=== PATIENT | female | born 1980 | race Caucasian/White ===

== ENCOUNTER 2023-06-01 04:41 | Emergency (ER) | payer OTHER, SELFPAY ==
[2023-06-01] VITALS (12 sets, daily range): BP systolic 136–151; BP diastolic 81–90; PULSE 102–124; RESP 16–22; TEMP 36.6–37; O2SAT 95–100
--- NOTE | ~2023-06-01 | XR_ITS ---
Portable chest x-ray Comparison: None Clinical History: Seizure Findings: Lungs are clear, without focal consolidation or pleural effusion. Cardiomediastinal silho uette is unremarkable. Bones and soft tissues are unremarkable. Impression: Normal chest. Reviewed, dictated and finalized at location . Impression: Normal chest.
--- NOTE | ~2023-06-01 | CT_ITS ---
Non-contrast Head CT History: Seizure Technique: Axial non-contrast imaging of the brain was performed. Dose reduction technique was used on this scan by utilizing automated exposure control and iterative reconstruction technique. The dose -length product (DLP) was 605.33 mGy-cm. Findings: There is no evidence of intracranial hemorrhage, mass lesion, or acute infarct. There is e xtensive encephalomalacia in the right MCA distribution, with right frontotemporal craniotomy... The ventricles and subarachnoid spaces are normal in size. The calvarium appears normal. The visualize d paranasal sinuses and mastoid air cells are clear. Impression: No acute abnormality evident. Extensive right MCA distribution encephalomalacia with overlying craniotomy. Correlate for prior infa rct or other postoperative change. Reviewed, dictated and finalized at [facility]. Impression: No acute abnormality evident. Extensive right MCA distribution encephalomalacia with overlying craniotomy. Co rrelate for prior infarct or other postoperative change.
--- NOTE | 2023-06-01 04:59 | ECG_ITS ---
Measurements Intervals [place] Rate: 112 P: 36 SD: 144 QRS: -8 QRSD: 98 T: -7 QT: 327 QTc: 448 Interpretive Statements SINUS TACHYCARDIA LOW QRS VOLTAGE IN PRECORDIAL LEADS INCOMPLETE RIGHT BUNDLE BRANCH BLOCK ST-T WAVE ABNORMALITY IN ANTERIOR LEADS- CONSIDER ISCHEMIA BASELINE ARTIFACT- I, II, AVR ABNORMAL ECG NO PREVIOUS ECG AVAILABLE FOR COMPARISON Electronically Signed On 06-01-2023 6:40:17 CDT by Pablo Cuba D.O.
[2023-06-01] MEDS: SODIUM CHLORIDE 0.9% IV 1,000 ML 999 ML IV CONT (05:39)
[2023-06-01] MEDS: levETIRAcetam IV 2,000 MG in DEXTROSE 5% 100 ML 720 MG IVPB (06:09)
[2023-06-01 06:11] LABS: Basophils Absolute Auto 0.1 K/mm3 (0.0-0.1); Basophils Percent Auto 0.8 % (0.2-1.2); Eosinophils Absolute Auto 0.1 K/mm3 (0-0.3); Eosinophils Percent Auto 0.9 % (0-4.4); Hematocrit 40.6 % (37.0-47.0); Hemoglobin 13.2 g/dL (12.0-15.0); Immature Granulocyte Absolute 0.09 K/mm3 (0.00-0.031); Immature Granulocyte Percent A 0.9 % (0-0.5); Immature Platelet Fraction Pct 3.9 % (0.9-11.2); Lymphocytes Absolute Auto 2.02 K/mm3 (0.9-3.2); Lymphocytes Percent Auto 20.4 % (18.3-44.2); Mean Corpuscular HGB Conc 32.5 g/dl (32-36); Mean Corpuscular Hemoglobin 30.1 pg (26-34); Mean Corpuscular Volume 92.7 fl (80-100); Mean Platelet Volume 10.1 fl (7.4-10.4); Monocytes Absolute Auto 0.7 K/mm3 (0.1-0.6); Monocytes Percent Auto 7.4 % (2.6-8.5); Neutrophils Absolute Auto 6.9 K/mm3 (1.3-6.7); Neutrophils Percent Auto 69.6 % (45.5-73.1); Platelet Count Result 358 k/mm3 (150-375); Red Blood Count 4.38 M/mm3 (4.2-5.4); White Blood Count 9.9 K/mm3 (4.5-10.0)
[2023-06-01 06:27] LABS: Alanine Aminotransferase 21 U/L (6-35); Albumin Level 3.9 g/dL (3.5-5.1); Alkaline Phosphatase 83 U/L (38-126); Anion Gap 3 mmol/L (8-16); Aspartate Amino Transferase 25 U/L (14-36); Bilirubin,Total 0.6 mg/dL (0.2-1.3); Blood Urea Nitrogen 11 mg/dL (7-17); Calcium 9.2 mg/dL (8.4-10.2); Carbon Dioxide 30 mmol/L (22-30); Chloride 103 mmol/L (98-107); Estimated CRCL calculation 143 ml/min; Estimated Glomerular Filt Rate > 60; Glucose 93 mg/dL (65-110); Magnesium 1.9 mg/dL (1.6-2.3); Potassium 3.9 mmol/L (3.4-5.0); Sodium 136 mmol/L (137-145)
--- NOTE | 2023-06-01 06:44 | ED.GENADULT ---
HPI - General Adult General Chief complaint: Seizure Stated complaint: ALTERED LOC? SEIZURE? History of Present Illness HPI narrative: This is a 42-year-old female with a history of CVA with left-sided weakness presenting for possible seizure. The patient herself does not remember what happened. the patient's said he heard a thump from the shower when he went to check on her she was half on half off the bed. There is noted tonic clonic activity but her eyes were deviated up into the right. She was unresponsive at that time. As he went called EMS and when he came back to the room she was no longer rigid and was responding but very sleepy. Patient's mental status continued to improve in the ambulance and when she arrived at the hospital she was at her baseline. Patient denies headache, fever, chills, chest pain, difficulty breathing, abdominal pain or urinary symptoms. Patient had been on prophylactic Keppra after her stroke and had been weaned down from 500 mg b.i.d. to 500 mg once daily 3 days ago. Related Data Allergies Allergy/AdvReac Type Severity Reaction Status Date / Time latex Allergy Unknown Hives Verified 06/01/23 04:46 vancomycin Allergy Fever Verified 06/01/23 04:46 [facility] Family History Family History (Updated 11/06/13 @ 07:13 by DOCTOR UNKNOWN) Mother Family history of thyroid disease Hypertension Social History Social History Smoking status: Current every day smoker Alcohol intake: current Exam Narrative: APPEARANCE: No apparent distress. Head: atraumatic. EYES: EOMI, NOSE: Atraumatic NECK: Trachea midline RESPIRATORY: No increased rate of breathing Clear to auscultation CARDIOVASCULAR: RRR, no peripheral edema MUSCULOSKELETAl: No obvious deformities NEURO: Alert. normal function of the right arm and right leg. Flaccid paralysis of the left arm left leg. Left-sided facial droop SKIN:: Warm, dry. Normal color PSYCHIATRIC: tearful Course Vital Signs Vital signs: Vital Signs Temperature 98.6 F 06/01/23 04:40 Pulse Rate 124 H 06/01/23 04:40 Respiratory Rate 22 H 06/01/23 04:40 Blood Pressure 143/90 H 06/01/23 04:40 Pulse Oximetry 95 06/01/23 04:40 Oxygen Delivery Room Air 06/01/23 04:40 Temperature 98.6 F 03/22/24 04:40 Pulse Rate 103 H 06/01/23 07:00 Respiratory Rate 20 06/01/23 07:00 Blood Pressure 136/81 06/01/23 06:33 Pulse Oximetry 98 06/01/23 07:00 Oxygen Delivery Room Air 06/01/23 04:46 Medical Decision Making [facility] Narrative Medical decision making narrative: -Course: 42-year-old female with history of CVA presenting with new onset seizures. patient loaded with 2000 mg of Keppra. Workup negative for acute findings. Seizures likely due to reduction in Keppra. Case was discussed with the [facility] Neurologist on-call at this time the patient can follow-up with the epilepsy clinic. Family was informed of the plan and are comfortable. Given return precautions for more seizures. -DDX includes but is not limited to: New onset seizure secondary to CVA, infection, dehydration -Co-morbidities complicating care: right MCA stroke, hypertension -Social determinants of health: disabled with stroke, lives with her -Independent interpretation of studies: CBC normal. Metabolic panel unremarkable. Viral swabs negative CT head retention prior stroke but no acute findings. Chest x-ray unremarkable. UA no indicative of infection. Independent EKG interpretation: Rhythm [sinus], Rate [112], [place] -[normal], ND -[normal], QRS [narrow], QTC [normal], T waves -[negative for concerning inversions], ST Segments - [Negative for concerning elevations] Final interpretations: sinus tach nonspecific ST changes -Discussion of Management/Consultants: [facility] Transfer line : Neurology Dr. Marcus - case was discussed and as the patient has a known reason for seizure with her prior stroke and recently decreased keppra dosing it is
[2023-06-01 06:45] LABS: Influenza A QL RT-PCR Negative (Negative); Influenza B QL RT-PCR Negative (Negative); RSV RNA, RT-PCR Negative (Negative); SARS-CoV-2 RNA PCR Negative (Negative)
[2023-06-01 06:57] LABS: Appearance Urine Clear (Clear); Bilirubin Urine Negative (Negative); Blood Urine Negative (Negative); Color Urine Yellow (Yellow); Glucose Urine UA Negative (Negative); Ketones Urine Negative (Negative); Leukocyte Esterase Ur Negative LEU/UL (Negative); Nitrate Urine Negative (Negative); Protein Urine Negative (Negative); Specific Grav Ur 1.015 (1.001-1.035); Urobilinogen Urine 0.2 mg/dL (<2.0); pH Urine 6.5 (5.0-9.0)
[2023-06-01 07:02] LABS: Add Urine Microscopic? NO
[2023-06-01 07:05] LABS: Platelet Estimate Adequate (Adequate); Schistocytes None Seen
[2023-06-01 07:17] LABS: Pregnancy On Board Control Positive; Urine Pregnancy Test Negative
== END 2023-06-01 08:11 | disposition home or self-care (01) ==
PROVIDERS: Emergency Provider Emergency Medicine; PCP Student in an Organized Health Care Education/Training Program
DX: R56.9 Unspecified convulsions (principal); Z20.822 Contact with and (suspected) exposure to COVID-19; I69.954 Hemiplegia and hemiparesis following unspecified cerebrovascular disease affecting left non-dominant side; F17.200 Nicotine dependence, unspecified, uncomplicated
CPT/HCPCS: 36415; 70450; 71045; 80053; 81025; 83735; 85025; 85055; 87637; 93005; 96361; 96374; 99284; J1953; J7030

== ENCOUNTER 2024-03-10 11:59 | Outpatient (CLI) | payer OTHER, SELFPAY ==
--- NOTE | 2024-03-10 12:07 | ECG_ITS ---
Test Date: 2024-03-10 12:35:34 Measurements Intervals [place] Rate: 76 P: -26 [place]: 145 QRS: 8 QRSD: 101 T: -30 QT: 394 QTc: 444 Interpretive Statements SINUS RHYTHM POSSIBLE RIGHT VENTRICULAR CONDUCTION DELAY [RSR (QR) IN V1/V2] Poor R wave progression WARNING: DATA QUALITY MAY AFFECT INTERPRETATION No previous ECG available for comparison Electronically Signed On 03-10-2024 18:07:48 [employer] by Won Rodriges M.D.
[2024-03-10 13:02] LABS: Alanine Aminotransferase 24 U/L (6-35); Albumin Level 3.9 g/dL (3.5-5.1); Alkaline Phosphatase 73 U/L (38-126); Anion Gap 4 mmol/L (4-12); Aspartate Amino Transferase 24 U/L (14-36); Bilirubin,Total 0.5 mg/dL (0.2-1.3); Blood Urea Nitrogen 16 mg/dL (7-17); Carbon Dioxide 26 mmol/L (22-30); Chloride 105 mmol/L (98-107); Estimated Glomerular Filt Rate > 60; Glucose 133 mg/dL (65-110); Potassium 3.5 mmol/L (3.4-5.0); Sodium 135 mmol/L (137-145)
== END 2024-03-10 12:00 | disposition home or self-care (01) ==
LOC: ANHSURGERY 12:06
PROVIDERS: PCP Student in an Organized Health Care Education/Training Program; Visit Provider Obstetrics & Gynecology
DX: Z01.818 Encounter for other preprocedural examination (principal); N92.0 Excessive and frequent menstruation with regular cycle; I10 Essential (primary) hypertension
CPT/HCPCS: 36415; 80053; 86850; 86900; 86901; 93005

== ENCOUNTER 2024-03-14 16:36 | Inpatient (IN) | payer OTHER, SELFPAY ==
[2024-03-07 08:33] VITALS: BMI 40.4
--- NOTE | 2024-03-07 08:43 | PC.NURSE ---
Report to the Outpatient Waiting Room, entrance under the green pavilion located off [facility], at time _0600_ on date _[id number]_. Planned Procedure Time: _0730_.? Time changes happen often and if your time is changed the preop area will call you the afternoon before. - You and your visitor will be asked to self-screen and do not enter if you have any COVID symptoms. Please call surgeon if you need to reschedule. - A mask is optional within the hospital at this time. Patients may have clear liquids (water, carbonated beverages, clear teas, apple juice) until 3 hours prior to surgery with a maximum of 20 ounces. - No food from midnight until time of surgery and no smoking. This includes no chewing gum, candy or mints. Take only the following medications with a SIP of water on the morning of surgery: ___Keppra, Buspirone, Verapamil, Baclofen, Hydrocodone, Duloxetine, and Metoprolol DO NOT STOP ANY OF YOUR OTHER PRESCRIPTION MEDICATIONS PRIOR TO SURGERY EXCEPT THE FOLLOWING Medications to discontinue per physician ___Vitamin D3 Date to take last eoby____[id number]____ Continue aspirin as instructed by 's office. Please no make-up, nail solomon islander, hairspray, perfume, deodorant, or body powder the day of surgery.? No jewelry (including any body piercings) or valuables the day of surgery, leave them at home.? Please take a shower or bath the night before, or the morning of, surgery with an antibacterial soap.? Wear comfortable, loose fitting clothing.? - Jewelry must be removed prior to entering the operating room.? Rings and piercings that are not removed may be cut off. - The hospital will not accept responsibility for valuables.? - Please leave all valuables, including medications, at home the day of surgery. If you are going home after surgery, a licensed driver/merchandiser must drive you home.? - NO public transportation without another adult if you receive anesthesia. - We recommend that an adult stay with you for 24 hours following discharge. - We also recommend that you do not drive, make important decision, drink alcoholic beverages, or take any drugs that were not prescribed by your health care provider for at least 24 hours after your discharge time. Follow any additional instructions given to you from your surgeon. Telephone instructions given to __Jen__and asked if any additional questions and then verbalized understanding. Patient advised to call surgeon office or pre surgery nurse liaison [phone] if any additional questions.
[2024-03-13] VITALS (13 sets, daily range): BP systolic 89–126; BP diastolic 48–78; PULSE 77–112; RESP 12–19; TEMP 36.2–36.8; O2SAT 92–100
[2024-03-13] MEDS: LACTATED RINGERS 1,000 ML 30 ML IV CONT ×3 (07:10→11:50)
--- NOTE | 2024-03-13 07:16 | P.HP_ITS ---
H&P: HPI History of Present Illness Date/Time: 03/13/24 07:16 Chief Complaint: Heavy vaginal bleeding Narrative: this patient is a 43-year-old female with history of stroke who has severe menorrhagia. We have agreed to perform robotic hysterectomy with bilateral salpingo-oophorectomy. The patient understands the details of the procedure. The procedure has been explained in detail. She understands the risks. She understands that injuries may occur that result in hospitalization, more surgery, and severe illness. She understands risk of hemorrhage and infection. She denies any chest pain or shortness of breath. She denies any nausea, vomiting, fever, chills. Review of Systems Review of Systems: All systems reviewed & are unremarkable except as noted in HPI and below Constitutional: Constitutional: Denies chills, Denies fatigue, Denies fever(s) and Denies weakness Eyes: Eyes: Denies blurry vision, Denies change in vision, Denies loss of peripheral vision, Denies loss of vision, Denies other visual disturbances and Denies eye pain ENT: Denies vertigo, Denies dizziness, Denies hearing loss, Denies mouth pain, Denies nasal obstruction, Denies neck mass and Denies neck pain Cardiovascular: Cardiovascular: Denies chest pain, Denies diaphoresis, Denies syncope, Denies leg edema and Denies dyspnea Respiratory: Respiratory: Denies chest congestion, Denies cough, Denies hemoptysis, Denies dyspnea and Denies wheezing Gastrointestinal: Gastrointestinal: Denies abdominal pain, Denies constipation, Denies diarrhea, Denies nausea and Denies vomiting Genitourinary: Genitourinary: Denies hematuria, Denies change in libido, Denies nocturia, Denies genital lesions, Denies flank pain and Denies urinary urgency Musculoskeletal: Musculoskeletal: Denies abnormal gait, Denies back pain, Denies myalgias, Denies arthralgias, Denies joint swelling, Denies muscle weakness and Denies neck pain Integumentary/Breasts: Skin/Breast: Denies swelling, Denies breast pain, Denies breast mass, Denies dry skin, Denies nipple discharge, Denies unusual bruising and Denies jaundice Neurologic: Denies Neuro-related abnormal movements, Denies Abnormal speech present, Denies abnormal gait, Denies behavioral changes, Denies confusion, Denies vertigo, Denies dizziness, Denies syncope, Denies loss of vision, Denies memory loss, Denies convulsions and Denies weakness Psychiatric: Psychiatric: Denies abnormal sleep pattern, Denies behavioral changes, Denies change in libido, Denies confusion, Denies depression, Denies anhedonia and Denies memory loss Endocrine: Endocrine: Reports no additional endocrine complaints, Denies change in libido and Denies fatigue Hematologic/Lymphatic: Hematologic/Lymphatic: Reports no additional hematologic/lymphatic complaints Allergic/Immunologic: Allergic/Immunologic: Reports no additional allergic/immunologic complaints and Denies wheezing [facility] Family History Family History (Updated 11/06/13 @ 07:13 by DOCTOR UNKNOWN) Mother Family history of thyroid disease Hypertension Social History Social History Years smoked: 5 Smoking status: Former smoker Tobacco type: cigarettes Smoking end date: 03/07/16 Alcohol intake: current Living arrangements: with family Spiritual care concerns: No Meds Home Medications and Allergies Home Medications ?Medication ?Instructions ?Recorded ?Confirmed ?Type aspirin 81 mg tablet,delayed 81 mg PO DAILY 03/07/24 03/07/24 History release (Adult Aspirin Regimen) baclofen 10 mg tablet 10 mg PO DAILY 03/07/24 03/07/24 History buspirone 5 mg tablet 5 mg PO BID 03/07/24 03/07/24 History cetirizine 10 mg tablet (24Hour 10 mg PO DAILY 03/07/24 03/07/24 History Allergy) cholecalciferol (vitamin D3) 50 2,000 unit PO DAILY 03/07/24 03/07/24 History mcg (2,000 unit) capsule (Vitamin D3) cyclobenzaprine 5 mg tablet 5 mg PO Q8H 03/07/24 03/07/24 History duloxetine 60 mg capsule,delayed 60 mg PO DAILY 03/07/24 03/07/24 History release hydrocodone 10 mg-acetaminophen 1 tablet PO Q6H 03/07/24 03/07/24 History 325 mg tablet levetiracetam 1,000 mg tablet 1,500 mg PO Q12H 03/07/24 03/07/24 History metoprolol tartrate 25 mg tablet 25 mg PO DAILY 03/07/24 03/07/24 History pantoprazole 40 mg tablet,delayed 40 mg PO DAILY 03/07/24 03/07/24 History release verapamil 180 mg 24 hr 180 mg PO DAILY 03/07/24 03/07/24 History capsule,extended release Allergies Allergy/AdvReac Type Severity Reaction Status Date / Time latex Allergy Unknown Hives Verified 03/07/24 08:26 vancomycin Allergy Fever Verified 03/07/24 08:26 Exam Const: General: cooperative, healthy appearing, comfortable and no acute distress Orientation/consciousness: oriented to person, oriented to place and oriented to time HENMT: Head: normal to inspection Ears: external ears normal Face/Nose/Sinus: Normal external nose present and normal facial exam Face and sinus: normal facial exam Eyes: General: appearance normal, both eyes and all related structures Neck: Neck: normal visual inspection, trachea midline and supple Resp: Auscultation: clear to auscultation bilaterally, no crackles, no rales, no rhonchi and no wheezes Cardio: Rate: regular rate Rhythm: regular rhythm Heart sounds: no click, no murmurs and no rubs GI: GI Palp: No abdominal tenderness, No Soft to palpation, No Tenderness to palpation present (GI) and No Palpable mass present Auscultation: normal bowel sounds Skin: General skin exam: normal color and no rashes or lesions noted Neuro: General: oriented to person, oriented to place and oriented to time Extrem: General: normal to inspection, no joint enlargement, no clubbing, cyanosis or edema, no pedal edema and no calf tenderness Psych: Appearance: grossly normal Mental Status: mental status grossly normal Speech and movement: Normal speech and movement present Assessment and Plan Assessment and plan (1) Menorrhagia: Code(s): N92.0 - Excessive and frequent menstruation with regular cycle Status: Acute Assessment and Plan: this patient is a 43-year-old female with history of stroke who has severe menorrhagia. We have agreed to perform robotic hysterectomy with bilateral salpingo-oophorectomy. she understands risks, benefits, and alternatives. She has completed informed consent process is ready to proceed. (2) Stroke: Code(s): I63.9 - Cerebral infarction, unspecified Status: Acute
[2024-03-13] MEDS: KETOROLAC 15 MG/ML VIAL (*BKC) IV PUSH (07:18)
--- NOTE | 2024-03-13 07:18 | WPDHPUPDATE1 ---
History and Physical Update Update Date/Time: 03/13/24 07:18 History and Physical has been reviewed, including an updated exam of the patient. There are NO changes in the patient's condition. Risks, benefits, and alternatives have been discussed and questions answered. Patient agrees to proceed with procedure.
--- NOTE | 2024-03-13 07:19 | WPDANESEPPF ---
Anes - Initial Pre Proc Eval Procedure: Operation Date: 03/13/24 07:30 Proposed Procedures p Robotic Assisted Hysterectomy with Bilateral Salpingectomy - Leno Moran MD Date/Time: 03/13/24 07:19 Surgeon: Leno Moran MD Pre Op Diagnosis: menorrhagia Patient Data Age: 43 Gender: F Height: 1.63 m Weight: 106.8 kg Allergies Allergy/AdvReac Type Severity Reaction Status Date / Time latex Allergy Unknown Hives Verified 03/07/24 08:26 vancomycin Allergy Fever Verified 03/07/24 08:26 Home Medications ?Medication ?Instructions ?Recorded ?Confirmed ?Type aspirin 81 mg tablet,delayed 81 mg PO DAILY 03/07/24 03/07/24 History release (Adult Aspirin Regimen) baclofen 10 mg tablet 10 mg PO DAILY 03/07/24 03/07/24 History buspirone 5 mg tablet 5 mg PO BID 03/07/24 03/07/24 History cetirizine 10 mg tablet (24Hour 10 mg PO DAILY 03/07/24 03/07/24 History Allergy) cholecalciferol (vitamin D3) 50 2,000 unit PO DAILY 03/07/24 03/07/24 History mcg (2,000 unit) capsule (Vitamin D3) cyclobenzaprine 5 mg tablet 5 mg PO Q8H 03/07/24 03/07/24 History duloxetine 60 mg capsule,delayed 60 mg PO DAILY 03/07/24 03/07/24 History release hydrocodone 10 mg-acetaminophen 1 tablet PO Q6H 03/07/24 03/07/24 History 325 mg tablet levetiracetam 1,000 mg tablet 1,500 mg PO Q12H 03/07/24 03/07/24 History metoprolol tartrate 25 mg tablet 25 mg PO DAILY 03/07/24 03/07/24 History pantoprazole 40 mg tablet,delayed 40 mg PO DAILY 03/07/24 03/07/24 History release verapamil 180 mg 24 hr 180 mg PO DAILY 03/07/24 03/07/24 History capsule,extended release Patient hx anesthesia problems: none Family hx anesthesia problems: none Results Review: All pre-operative results and documents have been reviewed as part of the pre-operative evaluation. [facility] Family History Family History Mother Family history of thyroid disease Hypertension Social History Social History Years smoked: 5 Smoking status: Former smoker Tobacco type: cigarettes Smoking end date: 03/07/16 Alcohol intake: current Living arrangements: with family Spiritual care concerns: No Anes - Eval Final PreProcedure Day of Procedure 03/13/24 07:19 Patient weight: normal Heart: regular rate and rhythm Lungs: clear to auscultation Airway: Mallampati scale Neurological: alert and oriented Last oral intake: >/= 8 hours ASA classification: III Emergent: no Anesthetic plan: proceed Anesthesia type and monitoring: general ETT and standard monitoring Results Review: All pre-operative results and documents have been reviewed as part of the pre-operative evaluation. CVA 2022 unclear etiology. Pt w residual L hemiparesis. Seizure meds taken this am. Informed Consent: The patient's anesthetic plan and its attendant risks and benefits were discussed with the patient/family/POA. Questions were solicited and answers provided to the satisfaction of the patient/family/POA.
[2024-03-13] MEDS: ceFAZolin 2 GM/D5W 50 ML 2 GM/50 ML BAG IVPB (07:34)
--- NOTE | 2024-03-13 09:12 | P.CONGS_ITS ---
Assessment and Plan Assessment and plan (1) Accidental injury of intestine during surgical procedure: Code(s): K91.81 - Other intraoperative complications of digestive system Status: Acute Assessment and Plan: Potential bowel injury during initial trocar placement prior to robotic laparoscopic hysterectomy with bilateral salpingo-oophorectomy. Will proceed with diagnostic laparoscopy. Please see operative note. (2) Menorrhagia: Code(s): N92.0 - Excessive and frequent menstruation with regular cycle Status: Chronic (3) Stroke: Code(s): I63.9 - Cerebral infarction, unspecified Status: Chronic History of Present Illness Consult details Consult date: 03/13/24 Reason for consult: other (Possible bowel injury) Requesting physician: Leno Moran MD Narrative: Patient is a 43-year-old woman with menorrhagia and scheduled for a robotic total abdominal hysterectomy with bilateral salpingo-oophorectomy. She has a history of a right hemispheric stroke in 2022 that has residual mild left hemiparesis. She takes medication to avoid seizures. She was asleep on the operating table when I was called to the room. The operating swimming pool attendant noted that in the left upper quadrant, he was using a 5 mm applied Medical optical trocar and had concern that on placement of this initial trocar he had injured the intestine directly under the trocar site. Patient was in a flat position at the time. He had not been able to find the area of the injury since then. There had been some anterior abdominal wall omental adhesions that he had taken down. I was called to evaluate the patient intraoperatively for possible bowel injury. Review of Systems Review of Systems: ROS unobtainable: Yes unobtainable due to endotracheal tube PMFSH Family History Family History Mother Family history of thyroid disease Hypertension Social History Social History Years smoked: 5 Smoking status: Former smoker Tobacco type: cigarettes Smoking end date: 03/07/16 Alcohol intake: current Living arrangements: with family Spiritual care concerns: No Meds Home Medications and Allergies Home Medications ?Medication ?Instructions ?Recorded ?Confirmed ?Type aspirin 81 mg tablet,delayed 81 mg PO DAILY 03/07/24 03/13/24 History release (Adult Aspirin Regimen) baclofen 10 mg tablet 10 mg PO DAILY 03/07/24 03/13/24 History buspirone 5 mg tablet 5 mg PO BID 03/07/24 03/13/24 History cetirizine 10 mg tablet (24Hour 10 mg PO DAILY 03/07/24 03/13/24 History Allergy) cholecalciferol (vitamin D3) 50 2,000 unit PO DAILY 03/07/24 03/13/24 History mcg (2,000 unit) capsule (Vitamin D3) cyclobenzaprine 5 mg tablet 5 mg PO Q8H 03/07/24 03/13/24 History duloxetine 60 mg capsule,delayed 60 mg PO DAILY 03/07/24 03/13/24 History release hydrocodone 10 mg-acetaminophen 1 tablet PO Q6H 03/07/24 03/13/24 History 325 mg tablet levetiracetam 1,000 mg tablet 1,500 mg PO Q12H 03/07/24 03/13/24 History metoprolol tartrate 25 mg tablet 25 mg PO DAILY 03/07/24 03/13/24 History pantoprazole 40 mg tablet,delayed 40 mg PO DAILY 03/07/24 03/13/24 History release verapamil 180 mg 24 hr 180 mg PO DAILY 03/07/24 03/13/24 History capsule,extended release Allergies Allergy/AdvReac Type Severity Reaction Status Date / Time latex Allergy Unknown Hives Verified 03/13/24 07:43 vancomycin Allergy Fever Verified 03/13/24 07:43 Vital Signs Vital Signs - 24 hr 03/13/24 06:10 Temperature 36.2 C L Pulse Rate 77 Respiratory Rate 18 Blood Pressure 119/53 L Pulse Oximetry 97 Oxygen Delivery Room Air Exam Narrative: No exam able to be performed other than that shown in the operative report. Results Labs Labs: All other labs normal.
--- NOTE | 2024-03-13 09:18 | P.OP_ITS ---
Procedure Note - Detailed Date of Procedure 03/13/24 Pre-op Diagnosis Laparoscopic bowel injury Post-op Diagnosis Other (No bowel injury found) Procedure Performed Diagnostic laparoscopy Surgeon Joni Anderson MD Technology Administrator Manuel MANUEL Anesthesia General Indications During initial trocar placement in the left upper abdomen, an optical trocar placement was worrisome for bowel injury. I was called to see the patient to evaluate for this and if found, repair. Findings There was a superficial small bowel mesenteric injury but I could not find any evidence of a small bowel perforation. Description of Procedure Patient was asleep on the operating table. Three robotic trocars were in place 1 in the left upper abdomen, 1 in the mid abdomen and 1 in the right upper abdomen, pretty much all at the same level. Patient was initially in steep Trendelenburg. There was redundant omentum covering much of the abdominal viscera. Seeing no obvious bowel injury in this position, I then had the patient returned to the flat supine position she had been in when the trocar was placed. In this position the omentum completely covered all the small bowel seeing only a small area of descending colon but otherwise only omentum. I began laparoscopic evaluation using bowel grasping atraumatic forceps. I looked initially directly under the trocar site and found a few loops of bowel but no sign of injury to bowel or other surface. Patient was then placed in some Trendelenburg. An additional 5 mm port was placed in the left upper quadrant. The camera was moved to the supraumbilical robotic trocar site. I then used the new port and the left-sided robotic trocar to do a more thorough dissection. I was able to move the omentum more cephalad and then was able to look at at least 10 ft of small intestine on the left side of the abdomen. I found an area of superficial mesenteric injury which was not bleeding. I examined the bowel very closely in this area. I examined all the bowel in this general area as thoroughly as I could and reviewed it multiple times. No evidence of bowel injury was found. I did not find any bleeding. I discussed this with Dr. Moran who was present throughout the procedure. Despite thoroughly looking at the small bowel in the area, no injury was found. The only possibility to ensure there was no injury would be to open the patient. I recommended that he go ahead and proceed with the hysterectomy and oophorectomy. If any evidence of enteric content or other suggestion of a bowel injury was noted, please call me back. Dr. Moran then resumed control of the operation. Estimated Blood Loss 0 Pathology None sent Complications None Condition Stable Disposition No change [facility] Billing Surgery - Charge Forward: Surgery Billing (Diagnostic laparoscopy)
--- NOTE | 2024-03-13 10:29 | P.OP_ITS ---
Procedure Note - Detailed Date of Procedure 03/13/24 Pre-op Diagnosis Small intestinal injury Post-op Diagnosis Same Procedure Performed Robotic laparoscopic repair of enterotomy Surgeon Joni Anderson MD Racing Secretary And Handicapper Manuel MANUEL Anesthesia General Indications I had just completed a diagnostic laparoscopy looking for small bowel injury from initial trocar placement in this patient. While I was finishing the dictation, Dr. Moran had docked and started using the robot. He found a small bowel injury adjacent to the mesentery. I was called back to the room and agreed that this was a definite full-thickness injury, requiring repair. Findings Enterotomy small intestine Description of Procedure I went to the robotic console. I then used blunt and sharp dissection with some bipolar cautery to free the mesentery in the area of the enterotomy so that the opening was fully exposed with normal appearing small intestine available around the enterotomy. Some enteric content spilled during the manipulation and this was suctioned away by the 1st state tested nursing assistant. Once the enterotomy was exposed adequately, interrupted full-thickness 4-0 chromic suture were use to provide the initial closure. This was an imbricating stitch with buried knots. I then used 4-0 silk suture and in Lembert interrupted fashion with 0 muscular bites closed the 2nd layer over the enterotomy. Suture needles were then removed. The area of repair was exposed. Irrigation and suctioning of the area was carried out. All looked good with no evidence of bleeding or leakage. The small intestine appeared healthy and viable. Dr. Moran than resumed the primary surgery at the robotic console. Estimated Blood Loss 0 Drains No Packing No Pathology None sent Complications None Condition Stable Disposition No change [facility] Billing Surgery - Charge Forward: Surgery Billing (Robotic laparoscopic 2 layer closure of enterotomy)
--- NOTE | 2024-03-13 10:43 | P.OP_ITS ---
Procedure Note - Detailed Date of Procedure 03/13/24 Pre-op Diagnosis menorrhagia Post-op Diagnosis Same Procedure Performed Robot assisted Total hysterectomy with bilateral salpingectomy. Left oophorectomy Repair of incidental enterotomy was performed by Dr. Anderson Surgeon Leno Moran MD Anesthesia General Indications heavy vaginal bleeding, pelvic pain Findings normal-appearing uterus, ovaries, and left tube, right tube was partially resected. Some scarring over the posterior cul-de-sac peritoneum. Description of Procedure This patient was taken to the operating room. She was prepped and draped in the dorsal lithotomy position after induction of general anesthesia. The uterine manipulator and Madhuri cup were placed. This was done with a speculum and tenaculum. The speculum was placed. The cervix was grasped with a tenaculum. The stay sutures were placed at 3 and 9:00 a.m.. The stay sutures of 0 Vicryl were tied to the appropriately Size scope after it was slipped around the cervix.. The tip of the CHLOÉ manipulator was placed in the intrauterine cavity. The cup was slid into place around the cervix and into the fornices. It was locked into place. The sutures were then wrapped around the handle and tied under tension. A 8 mm skin incision was made in the left upper quadrant the abdomen. a 5 mm Visiport trocar was inserted into abdominal cavity and pneumoperitoneum was a chieved. A 8 mm supraumbilical incision was made and a 8 mm trocar was inserted into the intrauterine cavity under direct visualization of the scope. an 8 mm incision was made in the right upper quadrant of the abdomen and an 8 mm robotic trocar was placed the inter uterine cavity under direct visualization the scope. An 11 mm trocar was inserted in the right upper quadrant of the abdomen rectal is a cystoscope after an incision was made there as well. The robot was docked. Electronic Orientation of the robot was performed. Bilateral ureteral lysis was performed. This was done from the pelvic brim down to the uterine artery. This was done with careful dissection using sharp and blunt dissection. The right fallopian tube were removed. The mesosalpinx around the fallopian tube were cauterized transected with LigaSure cautery. This was done from the ovary to the uterine cornua. The left tube and ovary were removed. The infundibulopelvic ligament was cauterized. The para ovarian tissue was cauterized transected. The mesosalpinx between the ovary and around the cone was cauterized transected in stepwise fashion to the area of the left uterine cornua. In a stepwise fashion along the lateral aspects of the uterus the round ligament and broad ligaments were cauterized transected down to the level of the uterine arteries. A bladder flap was created in the bladder was mo rick distally to the end of the cervix and over the Madhuri cup. The bilateral uterine arteries were cauterized and transected. Colpotomy was then performed. In a circumferential fashion the vagina was transected using unipolar cautery. The incision was made down on the Madhuri cup. The uterus and cervix were taken out through the vagina. A pneumo occluder was placed in the vagina. The vaginal cuff was closed with a 0 V lock suture in a running fashion. The pelvis was irrigated with copious amounts antibiotic irrigation. The ureters were again examined and found to be intact and flowing freely under the uterine arteries into the bladder. The bladder was intact. It was examined directly. While placing the initial trocar in the left upper quadrant, a perforation of the bowel occurred. It was a small perforation of about 0.5 mm. General surgery, Dr. Anderson repaired the defect. See his operative notes for details. The abdomen was irrigated with antibiotic irrigation. Cystoscopy was performed after administration of methylene blue. The cystoscope was inserted. Bladder was distended with fluid. The ureteric meatus was observed bilaterally. Blue fluid was seen to egress bilaterally. The bladder was drained and the cystoscope was withdrawn. The vagina was irrigated with Betadine solution after removal of the Pneumo occluder. the trocars were removed after the robot was undocked. The skin was closed with subacute or Dermabond. The patient was taken to recovery room. She was stable condition. Sponge lap and needle counts were correct x2. Estimated Blood Loss 75 Urine Output 800 Drains Yes Packing No Pathology Yes Complications Other complications (Incidental enterotomy) Condition Stable Disposition Floor
--- NOTE | 2024-03-13 11:32 | SUR.PHASEI ---
patient baseline skin color is very fair. Spoke with RN August to confirm patients skin color in preop
[2024-03-13] MEDS: SIMETHICONE 80 MG TAB.CHEW PO ×2 (13:37→17:03)
[2024-03-13] MEDS: HYDROcodone/acetaminophen (*CRX) 10-325 MG TABLET 1 TAB PO ×2 (13:37→19:21)
[2024-03-13] MEDS: LORATADINE 10 MG TABLET PO (13:38)
[2024-03-13] MEDS: DEXTROSE 5%/0.45% SOD CHL 1,000 ML 125 ML IV CONT ×2 (13:38→23:05)
[2024-03-13] MEDS: CYCLOBENZAPRINE HCL 5 MG TABLET PO ×2 (13:38→22:35)
[2024-03-13] MEDS: KETOROLAC 30 MG/ML VIAL (*BKC) IV PUSH ×2 (13:38→19:21)
[2024-03-13] MEDS: ACETAMINOPHEN 500 MG TABLET 1000 MG PO ×2 (13:38→19:21)
--- NOTE | 2024-03-13 15:37 | ADMGEN ---
This patient, Consuelo Darby, was admitted to OB 2nd Floor Room 289-00. Patient/family oriented to hospital policies and general routines including ID bracelet, bed and alarms, visiting hours, pain management, procedures, bathroom and other care routines, personal items, smoking policy, room service/diet, and visiting hours. Information on how to activate the Rapid Response Team has been discussed. Patient/Family are encouraged to report perceived risks to care and to ask questions if they do not understand what they are told or what they should do.
[2024-03-13] MEDS: oxyCODONE HCL (*CRX) 5 MG TAB IR 10 MG PO (17:02)
[2024-03-13] MEDS: busPIRone HCL 5 MG TABLET PO (17:03)
[2024-03-13] MEDS: DOCUSATE SODIUM 100 MG CAPSULE PO (17:03)
[2024-03-13] MEDS: PIPERACILLN/TAZ 3.375GM/NS50ML 3.375 GM/50 ML BAG IVPB ×2 (17:07→23:03)
[2024-03-13] MEDS: metroNIDAZOLE 500 MG/ISO 100ML 500 MG/100 ML BAG 100 MG IVPB (18:47)
[2024-03-13] MEDS: levETIRAcetam 500 MG TABLET 1500 MG PO (20:57)
[2024-03-13] MEDS: oxyCODONE HCL (*CRX) 5 MG TAB IR PO (23:02)
[2024-03-14] VITALS (12 sets, daily range): BP systolic 81–144; BP diastolic 47–88; PULSE 81–130; RESP 15–18; TEMP 36.3–37.7; O2SAT 90–98
--- NOTE | ~2024-03-14 | CT_ITS ---
CT of the Abdomen and Pelvis: Indication: Abdominal pain Technique: 2.5 mm axial scans were obtained through the abdomen and pelvis following intravenous adm inistration of 100 cc of Omnipaque 350. Dose reduction technique was used on this scan by utilizing a utomated exposure control and iterative reconstruction technique. The dose-length product (DLP) was 1 817.12 mGy-cm. Findings: Scans through the lung bases demonstrate bibasilar atelectatic changes. There is diffuse hepatic steatosis. Cholecystectomy clips are present. The spleen, pancreas, adrenals and kidneys are within normal limits. No evidence of aortic aneurysm. No lymphadenopathy. There is mild wall thickening and distention predominantly involving the proximal to mid small bowel loops. Small amount of abdominopelvic ascites present, with mesenteric haziness. Small amounts of pne umoperitoneum are present. There is also a small amount of soft tissue gas in the anterior subcutaneo us soft tissues left anterior abdomen. Small umbilical hernia contains fat with associated pneumoperi toneum evident. No javier bowel obstruction evident. No abscess. Images through the pelvis were performed. Small amount of air present in the urinary bladder. No pelv ic mass evident. Status post hysterectomy. Impression: Findings suggestive of nonspecific small bowel enteritis. There is associated small amount of pneumop eritoneum, suspicious for bowel perforation, unless there is iatrogenic explanation for pneumoperiton eum. Small amount of abdominopelvic ascites. No mature/drainable abscess. Diffuse hepatic steatosis. Small amount of air in urinary bladder, presumably iatrogenic. Correlate clinically. Reviewed, dictated and finalized at location . [facility] Impression: Findings suggestive of nonspecific small bowel enteritis. There is associated s mall amount of pneumoperitoneum, suspicious for bowel perforation, unless there is iatrogenic explanation for pneumoperitoneum. Small amount of abdominopelvic ascites. No mature/drainable abscess. Diffuse hepatic steatosis. Small amount of air in urinary bladder, presumably iatrogenic. Correlate clinic ally.
[2024-03-14] MEDS: KETOROLAC 30 MG/ML VIAL (*BKC) IV PUSH (01:42)
[2024-03-14] MEDS: ACETAMINOPHEN 500 MG TABLET 1000 MG PO ×2 (01:42→12:43)
[2024-03-14] MEDS: HYDROcodone/acetaminophen (*CRX) 10-325 MG TABLET 1 TAB PO ×3 (02:00→17:18)
[2024-03-14] MEDS: oxyCODONE HCL (*CRX) 5 MG TAB IR PO (02:27)
--- NOTE | 2024-03-14 03:11 | PC.NURSE ---
0245- Pt states that she feels that her FC needs to be flushed, that she needs to urinate. FC draining to gravity, however, this RN did irrigate with sterile water and 100mls sterile water. Repositioned pt in bed onto right side. PT states she noticed relief after, states pain is cramping on left side of lower abdomen. This RN did educate pt about surgical pain. This RN talked with pt at bedside for approx 20 minutes, reassessing urine drainage from FC, clear, yellow urine noted. 800cc's noted in catheter bag which is hanging to gravity from bed frame. Stat locks on left and right thighs to secure FC.
[2024-03-14] MEDS: HYDROmorphone HCL INJ (*CRX) 1 MG/ML SYR IV PUSH ×2 (04:50→06:08)
[2024-03-14 05:24] LABS: Estimated CRCL calculation 141 ml/min; Estimated Glomerular Filt Rate > 60
[2024-03-14] MEDS: CYCLOBENZAPRINE HCL 5 MG TABLET PO ×3 (06:38→20:22)
[2024-03-14] MEDS: PIPERACILLN/TAZ 3.375GM/NS50ML 3.375 GM/50 ML BAG IVPB ×3 (06:38→17:19)
--- NOTE | 2024-03-14 06:53 | PC.NURSE ---
Dr. Moran informed Temp 99.1 and pulse 130's. BS are hyperactive. Requested to draw CBC w diff. OK to draw.
--- NOTE | 2024-03-14 07:06 | PC.NURSE ---
0230- Pt states that she is having increased pain in LLQ of abdomen, feels like it did in rehab when my catheter was clotted. This RN flushed FC with 100mls of sterile water without difficulty, FC draining clear yellow urine into drain bag. Pt stated, I want to have it removed now, I think that it is the problem. This RN asked pt how she voids at home and she stated that her assists her to bathroom and that she does not have a FC at home. This RN removed FC without difficulty.
--- NOTE | 2024-03-14 07:10 | PC.NURSE ---
0430- Pt c/o sever 10/10 pain in abdomen, worse than my craniotomy pain. This RN palpated abdomen which was rigid, pt could not tolerate palpation. This RN could not oscultate any bowel sounds at current time. Pt repositioned with assistance of 3. This rn then called Dr. Moran- order given for Dilaudid 1mg now and CT of abdomen/pelvis stat. Order placed by this RN, dilaudid given by this RN. 0450- Pt transported to CT via bed with assist of two.
--- NOTE | 2024-03-14 07:14 | PC.NURSE ---
0530- Pt back from CT, still c/o 12/19 pain in abdomen, this RN spoke with Dr. Moran once more, order given for Dilaudid 1mg IV push now. This RN also reported CT scan findings to Dr. Moran.
--- NOTE | 2024-03-14 07:16 | PC.NURSE ---
0555- Reported off to day shift nurse Barbara.
--- NOTE | 2024-03-14 07:30 | PC.NURSE ---
Dr. Moran in to see and assess pt. Discussed increase in HR from 110 to 130's. Pt still rating pain a 9 out of 10 after the Dilaudid. Pt unable to take deep breaths due to the pain. Had pt try to use incentive spirometer and it barely moves. Dr. Moran is having Dr. Anderson come see pt this am. To keep pt NPO except sips with essential meds. Reviewed meds with Dr. Moran and he gave list of ones he wanted given with sip of water.
[2024-03-14 07:39] LABS: Basophils Percent Auto 0.4 % (0.2-1.2); Eosinophils Absolute Auto 0.2 K/mm3 (0-0.3); Eosinophils Percent Auto 3.1 % (0-4.4); Hematocrit 42.8 % (37.0-47.0); Hemoglobin 14.2 g/dL (12.0-15.0); Immature Granulocyte Absolute 0.02 K/mm3 (0.00-0.031); Immature Granulocyte Percent A 0.3 % (0-0.5); Lymphocytes Absolute Auto 1.14 K/mm3 (0.9-3.2); Mean Corpuscular HGB Conc 33.2 g/dl (32-36); Mean Corpuscular Volume 93.4 fl (80-100); Mean Platelet Volume 10.1 fl (7.4-10.4); Monocytes Absolute Auto 0.3 K/mm3 (0.1-0.6); Monocytes Percent Auto 4.3 % (2.6-8.5); Neutrophils Percent Auto 74.9 % (45.5-73.1); Platelet Count Result 269 k/mm3 (150-375); Red Blood Count 4.58 M/mm3 (4.2-5.4); Red Cell Distribution Width 14.1 % (11.5-14.5); White Blood Count 6.7 K/mm3 (4.5-10.0)
[2024-03-14] MEDS: metroNIDAZOLE 500 MG/ISO 100ML 500 MG/100 ML BAG 100 MG IVPB ×2 (07:48→17:52)
--- NOTE | 2024-03-14 08:01 | PC.NURSE ---
Dr. Moran still on unit and informed of CBC results.
[2024-03-14] MEDS: levETIRAcetam 500 MG TABLET 1500 MG PO ×2 (08:04→20:22)
[2024-03-14] MEDS: METOPROLOL TARTRATE 25 MG TABLET PO (08:04)
[2024-03-14] MEDS: DULoxetine HCL 60 MG CAPSULE.DR PO (08:04)
[2024-03-14] MEDS: VERAPAMIL HCL 180 MG TABLET ER PO ×2 (08:05→08:10)
[2024-03-14] MEDS: busPIRone HCL 5 MG TABLET PO ×2 (08:05→17:19)
--- NOTE | 2024-03-14 08:10 | PM.GYNPNOP ---
STAINED GLASS GLAZIER - A/P Assessment and plan (1) Postoperative abdominal pain: Code(s): R10.9 - Unspecified abdominal pain; G89.18 - Other acute postprocedural pain Status: Acute Assessment and Plan: postoperative day 1 from robotic assisted hysterectomy with bilateral salpingectomy left oophorectomy. Patient had increasing abdominal pain early this morning. CT the abdomen was obtained. Outside agency read the CT as possible bowel perforation. A bowel perforation was addressed intraoperatively. Other findings on the CT scan are consistent with the operation and the irrigation used. Tachycardia is present. She has a normal hemoglobin, normal white count. Increasing blood pressure. Likely pain response. Related above information to General surgery. General surgery to see patient shortly. Postoperative Procedures: Procedures Operation Date: 03/13/24 07:30 Actual Procedure Side Surgeon p Robotic Assisted Hysterectomy with Bilateral Salpingectomy, Left Oophorectomy Bilateral Leno Moran MD s Diagnostic Laparoscopy, Robotic Assisted Laparoscopic Repair of Bowel Injury Not Applicable Joni Anderson MD Postoperative day: 1 Postoperative status: doing well Postoperative plan: see orders Time Spent With Patient Time: Total time spent is greater than 50% in coordination of care (as documented) at patient's floor/unit and/or counseling patient: Time with patient: 25 - 35 minutes STAINED GLASS GLAZIER- PN:Subj Post-Op Subjective Date/time seen: 03/14/24 08:10 Patient reported suddenly worsening abdominal pain. Pain is localized to the right upper quadrant and the left lower abdomen. She rates a 10/10. It is constant. Denies any nausea, vomiting, fever, chills. Exam Const: General: healthy appearing, comfortable and no acute distress Resp: Auscultation: clear to auscultation bilaterally, no rales, no rhonchi and no wheezes Cardio: Rate: regular rate Heart sounds: no click, no murmurs and no rubs GI: Inspection: normal to inspection, non-distended, incision ( Normal postoperative day 1) and obesity GI Palp: Yes abdominal tenderness, Yes Firmness to palpation present (GI) and Yes Guarding due to palpation present (GI) Auscultation: normal bowel sounds Extrem: General: normal to inspection, no pedal edema and no calf tenderness STAINED GLASS GLAZIER - PN: Obj Data Vital Signs Vital Signs: Vital Signs - 24 hr 03/13/24 11:00 03/13/24 11:15 03/13/24 11:30 Temperature 97.4 F L Pulse Rate 112 H 100 107 H Respiratory Rate 19 12 12 Blood Pressure 104/66 98/62 L 100/65 Pulse Oximetry 100 99 99 Oxygen Delivery Simple Face Mask Simple Face Mask Simple Face Mask Oxygen Flow Rate 8 8 8 03/13/24 11:45 03/13/24 12:00 03/13/24 12:15 Temperature Pulse Rate 111 H 111 H 109 H Respiratory Rate 15 14 15 Blood Pressure 102/60 104/53 L 89/56 L Pulse Oximetry 93 92 92 Oxygen Delivery Room Air Room Air Room Air Oxygen Flow Rate 03/13/24 12:30 03/13/24 12:37 03/13/24 13:00 Temperature 97.1 F L Pulse Rate 109 H 111 H 111 H Respiratory Rate 15 15 16 Blood Pressure 101/60 111/48 L 111/65 Pulse Oximetry 92 92 92 Oxygen Delivery Room Air Room Air Oxygen Flow Rate 03/13/24 13:00 03/13/24 17:00 03/13/24 18:25 Temperature 98.0 F Pulse Rate 110 H Respiratory Rate 18 Blood Pressure 111/68 Pulse Oximetry 95 Oxygen Delivery Room Air Room Air Oxygen Flow Rate 03/13/24 18:49 03/13/24 23:30 03/14/24 04:30 Temperature 98.2 F 97.8 F 97.7 F Pulse Rate 102 H 104 H 118 H Respiratory Rate 16 16 18 Blood Pressure 105/66 126/78 133/81 Pulse Oximetry 94 97 95 Oxygen Delivery Oxygen Flow Rate 03/14/24 06:25 03/14/24 06:25 03/14/24 08:04 Temperature 99.1 F Pulse Rate 130 H 130 H 130 H Respiratory Rate 18 18 Blood Pressure 144/88 H Pulse Oximetry 93 93 Oxygen Delivery Room Air Oxygen Flow Rate Intake/Output Intake/Output: Intake & Output 03/11/24 03/12/24 03/13/24 03/14/24 23:59 23:59 23:59 23:59 Intake Total 3140 200 Output Total 3870 800 Balance -730 -600 Meds/Results Medications: Active Medications Generic Name Dose Route Start Last Admin Trade Name Freq PRN Reason Stop Dose Admin Acetaminophen 1,000 mg 03/13/24 12:40 03/14/24 01:42 Acetaminophen 500 Mg Tablet PO 1,000 mg Q6HR SENDY Administration Hydrocodone Bitart/Acetaminophen 1 tab 03/13/24 12:40 03/14/24 02:00 Hydrocodone/Acetaminophen (*Crx) 10-325 Mg Tablet PO 1 tab Q6HR SENDY Administration Aspirin 81 mg 03/14/24 09:00 Aspirin 81 Mg Enteric Tablet PO DAILY SENDY Baclofen 10 mg 03/14/24 09:00 Baclofen 10 Mg Tablet PO DAILY SENDY Buspirone HCl 5 mg 03/13/24 17:00 03/14/24 08:05 Buspirone Hcl 5 Mg Tablet PO 5 mg BID SENDY Administration Cyclobenzaprine HCl 5 mg 03/13/24 14:00 03/14/24 06:38 Cyclobenzaprine Hcl 5 Mg Tablet PO 5 mg Q8HR SENDY Administration Docusate Sodium 100 mg 03/13/24 17:00 03/13/24 17:03 Docusate Sodium 100 Mg Capsule PO 100 mg BID SENDY Administration Duloxetine HCl 60 mg 03/14/24 09:00 03/14/24 08:04 Duloxetine Hcl 60 Mg Capsule.Dr PO 60 mg DAILY SENDY Administration Hydromorphone HCl 1 mg 03/14/24 06:26 03/14/24 06:08 Hydromorphone Hcl Inj (*Crx) 1 Mg/Ml Syr IV PUSH 1 mg Q3H PRN Administration Pain Rated 7-10 IF NPO Hydromorphone HCl 2 mg 03/14/24 07:41 Hydromorphone Hcl Inj (*Crx) 1 Mg/Ml Syr IV PUSH Q2H PRN Pain Dextrose/Sodium Chloride 1,000 mls @ 125 mls/hr 03/13/24 12:40 03/13/24 23:05 Dextrose 5% Sodium Chloride 0.45% IV CONT 125 mls/hr .Q8H SENDY Administration Piperacillin/Tazobactam/Dextrose 3.375 gm in 50 mls @ 100 mls/hr 03/13/24 17:00 03/14/24 06:38 Zosyn 3.375 Gm/Ns 50 Ml IVPB 100 mls/hr Q6HR SENDY Administration Metronidazole 500 mg in 100 mls @ 100 mls/hr 03/13/24 18:00 03/14/24 07:48 Flagyl 500 Mg/Iso Soln 100 Ml IVPB 100 mls/hr Q12H SENDY Administration Ibuprofen 600 mg 03/14/24 06:00 Ibuprofen 600 Mg Tablet PO Q6HR [facility] Levetiracetam 1,500 mg 03/13/24 21:00 03/14/24 08:04 Levetiracetam 500 Mg Tablet PO 1,500 mg Q12HR [facility] Administration Loratadine 10 mg 03/13/24 13:05 03/13/24 13:38 Loratadine 10 Mg Tablet PO 04/13/24 13:04 10 mg DAILY [facility] Administration Metoprolol Tartrate 25 mg 03/14/24 09:00 03/14/24 08:04 Metoprolol Tartrate 25 Mg Tablet PO 25 mg DAILY [facility] Administration Naloxone HCl 0.1 mg 03/13/24 12:40 Naloxone Hcl 0.4 Mg/Ml Vial IV PUSH Q2M PRN Respiratory rate less than 10 Ondansetron HCl 4 mg 03/13/24 12:40 Ondansetron Inj 4 Mg/2 Ml Vial IV PUSH Q6H PRN Nausea And Vomiting Oxycodone HCl 5 mg 03/13/24 12:40 03/14/24 02:27 Oxycodone Hcl (*Crx) 5 Mg Tab Ir PO 5 mg Q4H PRN Administration Pain Rated 4-6 Oxycodone HCl 10 mg 03/13/24 12:40 03/13/24 17:02 Oxycodone Hcl (*Crx) 5 Mg Tab Ir PO 10 mg Q6H PRN Administration Pain Rated 7-10 Pantoprazole Sodium 40 mg 03/14/24 09:00 Pantoprazole 40 Mg Tablet PO DAILY [facility] Pantoprazole Sodium 40 mg 03/14/24 09:00 Pantoprazole Sodium Iv 40 Mg Vial IV PUSH QAM [facility] Simethicone 80 mg 03/13/24 12:40 03/13/24 17:03 Simethicone 80 Mg Tab.Chew PO 80 mg TIDWM [facility] Administration Verapamil HCl 180 mg 03/14/24 09:00 03/14/24 08:05 Verapamil Hcl 180 Mg Tablet Er PO 180 mg DAILY [facility] Administration Vitamin D 2,000 units 03/14/24 09:00 Cholecalciferol 1,000 Units Tablet PO DAILY [facility] Radiology Results: ITS Impressions Abdomen/Pelvis CT 03/14/24 05:26 Impression: Findings suggestive of nonspecific small bowel enteritis. There is associated small amount of pneumoperitoneum, suspicious for bowel perforation, unless there is iatrogenic explanation for pneumoperitoneum. Small amount of abdominopelvic ascites. No mature/drainable abscess. Diffuse hepatic steatosis. Small amount of air in urinary bladder, presumably iatrogenic. Correlate clinically. Labs 03/14/24 07:29 03/14/24 05:12 Labs: Laboratory Results - last 24 hr 03/14/24 03/14/24 05:12 07:29 WBC 6.7 RBC 4.58 Hgb 14.2 Hct 42.8 MCV 93.4 MCH 31.0 MCHC 33.2 RDW 14.1 Plt Count 269 MPV 10.1 Immature Gran % (Auto) 0.3 Neut % (Auto) 74.9 H Lymph % (Auto) 17.0 L [place] % (Auto) 4.3 Eos % (Auto) 3.1 Baso % (Auto) 0.4 Lymph # (Auto) 1.14 [place] # (Auto) 0.3 Eos # (Auto) 0.2 Baso # (Auto) 0.0 Abs Immat Gran (auto) 0.02 Absolute Neuts (auto) 5.0 Absolute Nucleated RBC 0.000 Nucleated RBC % 0.0 Creatinine 0.50 L Estim Creat Clear Calc 141 Estimated GFR > 60
[2024-03-14] MEDS: HYDROmorphone HCL INJ (*CRX) 1 MG/ML SYR 2 MG IV PUSH (08:13)
[2024-03-14] MEDS: PANTOPRAZOLE SODIUM IV 40 MG VIAL IV PUSH (08:15)
--- NOTE | 2024-03-14 08:15 | WPDANESPN ---
Anes - Prog Note Post-Op Date/Time: 03/14/24 08:15 Vital Signs: Last Vital Signs Temp 37.3 C 03/14/24 06:25 Pulse 130 H 03/14/24 08:04 Resp 18 03/14/24 06:25 BP 144/88 H 03/14/24 06:25 Pulse Ox 93 03/14/24 06:25 O2 Del Method Room Air 03/14/24 06:25 O2 Flow Rate 8 03/13/24 11:30 Pain Score (VAS): 9 I/O: Intake & Output 03/13/24 03/14/24 03/14/24 23:59 07:59 15:59 Intake Total 1690 200 Output Total 2800 800 Balance -1110 -600 Laboratory Tests 03/14/24 07:29 03/14/24 05:12 03/14/24 03/14/24 05:12 07:29 WBC 6.7 RBC 4.58 Hgb 14.2 Hct 42.8 MCV 93.4 MCH 31.0 MCHC 33.2 RDW 14.1 Plt Count 269 MPV 10.1 Immature Gran % (Auto) 0.3 Neut % (Auto) 74.9 H Lymph % (Auto) 17.0 L [place] % (Auto) 4.3 Eos % (Auto) 3.1 Baso % (Auto) 0.4 Lymph # (Auto) 1.14 [place] # (Auto) 0.3 Eos # (Auto) 0.2 Baso # (Auto) 0.0 Abs Immat Gran (auto) 0.02 Absolute Neuts (auto) 5.0 Absolute Nucleated RBC 0.000 Nucleated RBC % 0.0 Creatinine 0.50 L Estim Creat Clear Calc 141 Estimated GFR > 60 Patient Feedback: Patient satisfied with anesthetic care.
[2024-03-14] MEDS: fentaNYL CITRATE INJ (*CRX) 100 MCG/2 ML VIAL IV PUSH (09:49)
--- NOTE | 2024-03-14 11:12 | PC.NURSE ---
Patient stated that the fentanyl 100mcg dosage worked and abdominal pain is now a 4/10. Intent is to get patient up to chair soon. Patient is requesting dilaudid dosage at 1015. RN told patient that she needs to wait longer in-between narcotic administration. Patient verbalized understanding. Concerns are verbalized that patient is asking for too many narcotics too frequently. Patient is sating 90% on room air. Placed on 2L O2 anc O2 sats are now 97%. Set of vitals were done (see flowsheet). Orders received to start UNMANNED EQUIPMENT OPERATOR fentanyl pump, but will delay holding due to recent vitals. Dr. Anderson's office was called at 1000 regarding him coming to see patient. They stated that they placed a call out to him. He has not called back at this time.
--- NOTE | 2024-03-14 12:05 | PC.NURSE ---
Dr. Anderson on floor seeing patient at 1130. Patient attempted to walk to bathroom with 3X assist. Patient states she was too tired and requested to go back to bed. Dr Anderson talking with patient and her family. Orders received to hold off on COMPUTER TYPESETTER. Patient will be transferred to [facility] surg floor due to Dr. Tipton orders. Patient will need fluid bolus to get blood pressure more stable before transferring to [facility]. She is now on full liquid diet and can resulme held meds from this AM
--- NOTE | 2024-03-14 12:23 | P.PNGS_ITS ---
Progress Note: A&P Assessment and Plan (1) Opioid dependence with current use: Code(s): F11.20 - Opioid dependence, uncomplicated Status: Chronic Assessment and Plan: patient requiring higher than usual doses of narcotic analgesics for pain control. Will also start near the lax and Senokot to the avoid constipation. Up in chair today and up to bathroom. Discussed patient with Dr. figueroa. (2) Menorrhagia: Code(s): N92.0 - Excessive and frequent menstruation with regular cycle Status: Chronic Assessment and Plan: status post robotic ARI BSO yesterday, awaiting return of bowel function. Try full liquids for now (3) Accidental injury of intestine during surgical procedure: Code(s): K91.81 - Other intraoperative complications of digestive system Status: Acute Assessment and Plan: no sign of acute abdomen or bowel perforation my my evaluation (4) Stroke: Code(s): I63.9 - Cerebral infarction, unspecified Status: Chronic Assessment and Plan: left hemiparesis with chronic left shoulder and left hip pain Subjective Subjective Date/Time Seen: 03/14/24 12:23 Post Op day: 1 Patient reports: still having pain, no flatus, no bowel movement and afebrile Interval history: patient having abdominal pain and tachycardia early this morning. CT scan abdomen and pelvis was done which was read as possible bowel injury. I reviewed this CT scan and the radiologist was not aware that the patient just had surgery yesterday. There is no ascites and only a small amount of intraperitoneal air consistent with laparoscopic surgery done yesterday. The patient does take [place] 10/325 3 times a day at home for chronic left shoulder and hip pain. She just received 100 mcg of fentanyl and is having great pain relief with that. Review of Systems Review of Systems: All systems reviewed & are unremarkable except as noted in HPI and below ( HPI) Exam Const: General: cooperative, comfortable, no acute distress, alert, awake, anxious and well nourished Orientation/consciousness: patient oriented x3 GI: Inspection: no abdominal wall ecchymosis, incision ( dry and healing well), obesity ( protuberant abdomen) and no visible herniation GI Palp: Yes Soft to palpation, Yes Tenderness to palpation present (GI) ( appropriate incisional tenderness after fentanyl), No Guarding due to palpation present (GI) and No Rebound tenderness present Auscultation: absent bowel sounds Neuro: General: other ( left hemiparesis) Extrem: General: no calf tenderness and no edema Psych: Speech and movement: Clear speech present Affect: Anxious affect present Attitude: cooperative Thought content: Yes Normal thought content present Insight: Good insight present (Psych) Objective Data Vital Signs Vital Signs: Vital Signs - 24 hr 03/13/24 12:30 03/13/24 12:37 03/13/24 13:00 Temperature 36.2 C L Pulse Rate 109 H 111 H 111 H Respiratory Rate 15 15 16 Blood Pressure 101/60 111/48 L 111/65 Pulse Oximetry 92 92 92 Oxygen Delivery Room Air Room Air 03/13/24 13:00 03/13/24 17:00 03/13/24 18:25 Temperature 36.7 C Pulse Rate 110 H Respiratory Rate 18 Blood Pressure 111/68 Pulse Oximetry 95 Oxygen Delivery Room Air Room Air 03/13/24 18:49 03/13/24 23:30 03/14/24 04:30 Temperature 36.8 C 36.6 C 36.5 C Pulse Rate 102 H 104 H 118 H Respiratory Rate 16 16 18 Blood Pressure 105/66 126/78 133/81 Pulse Oximetry 94 97 95 Oxygen Delivery 03/14/24 06:25 03/14/24 06:25 03/14/24 08:04 Temperature 37.3 C Pulse Rate 130 H 130 H 130 H Respiratory Rate 18 18 Blood Pressure 144/88 H Pulse Oximetry 93 93 Oxygen Delivery Room Air 03/14/24 10:25 Temperature Pulse Rate 101 H Respiratory Rate 15 Blood Pressure 81/48 L Pulse Oximetry 97 Oxygen Delivery Intake/Output Intake/Output: Intake & Output 03/11/24 03/12/24 03/13/24 03/14/24 23:59 23:59 23:59 23:59 Intake Total 3140 400 Output Total 3870 800 Balance -730 -400 Meds/Results Medications: Active Medications Generic Name Dose Route Start Last Admin Trade Name Freq PRN Reason Stop Dose Admin Acetaminophen 1,000 mg 03/13/24 12:40 03/14/24 08:46 Acetaminophen 500 Mg Tablet PO Not Given Q6HR SENDY Hydrocodone Bitart/Acetaminophen 1 tab 03/13/24 12:40 03/14/24 02:00 Hydrocodone/Acetaminophen (*Crx) 10-325 Mg Tablet PO 1 tab Q6HR SENDY Administration Aspirin 81 mg 03/14/24 09:00 03/14/24 09:22 Aspirin 81 Mg Enteric Tablet PO Not Given DAILY SENDY Baclofen 10 mg 03/14/24 09:00 03/14/24 09:22 Baclofen 10 Mg Tablet PO Not Given DAILY SENDY Buspirone HCl 5 mg 03/13/24 17:00 03/14/24 08:05 Buspirone Hcl 5 Mg Tablet PO 5 mg BID SENDY Administration Cyclobenzaprine HCl 5 mg 03/13/24 14:00 03/14/24 06:38 Cyclobenzaprine Hcl 5 Mg Tablet PO 5 mg Q8HR SENDY Administration Duloxetine HCl 60 mg 03/14/24 09:00 03/14/24 08:04 Duloxetine Hcl 60 Mg Capsule.Dr PO 60 mg DAILY SENDY Administration Hydromorphone HCl 1 mg 03/14/24 06:26 03/14/24 06:08 Hydromorphone Hcl Inj (*Crx) 1 Mg/Ml Syr IV PUSH 1 mg Q3H PRN Administration Pain Rated 7-10 IF NPO Hydromorphone HCl 2 mg 03/14/24 07:41 03/14/24 08:13 Hydromorphone Hcl Inj (*Crx) 1 Mg/Ml Syr IV PUSH 2 mg Q2H PRN Administration Pain Dextrose/Sodium Chloride 1,000 mls @ 125 mls/hr 03/13/24 12:40 03/14/24 08:46 Dextrose 5% Sodium Chloride 0.45% IV CONT Not Given .Q8H SENDY Piperacillin/Tazobactam/Dextrose 3.375 gm in 50 mls @ 100 mls/hr 03/13/24 17:00 03/14/24 06:38 Zosyn 3.375 Gm/Ns 50 Ml IVPB 100 mls/hr Q6HR SENDY Administration Metronidazole 500 mg in 100 mls @ 100 mls/hr 03/13/24 18:00 03/14/24 07:48 Flagyl 500 Mg/Iso Soln 100 Ml IVPB 100 mls/hr Q12H SENDY Administration Ibuprofen 600 mg 03/14/24 06:00 03/14/24 08:47 Ibuprofen 600 Mg Tablet PO Not Given Q6HR SENDY Levetiracetam 1,500 mg 03/13/24 21:00 03/14/24 08:04 Levetiracetam 500 Mg Tablet PO 1,500 mg Q12HR [facility] Administration Loratadine 10 mg 03/13/24 13:05 03/14/24 09:22 Loratadine 10 Mg Tablet PO 04/13/24 13:04 Not Given DAILY [facility] Metoprolol Tartrate 25 mg 03/14/24 09:00 03/14/24 08:04 Metoprolol Tartrate 25 Mg Tablet PO 25 mg DAILY [facility] Administration Naloxone HCl 0.1 mg 03/13/24 12:40 Naloxone Hcl 0.4 Mg/Ml Vial IV PUSH Q2M PRN Respiratory rate less than 10 Ondansetron HCl 4 mg 03/13/24 12:40 Ondansetron Inj 4 Mg/2 Ml Vial IV PUSH Q6H PRN Nausea And Vomiting Oxycodone HCl 5 mg 03/13/24 12:40 03/14/24 02:27 Oxycodone Hcl (*Crx) 5 Mg Tab Ir PO 5 mg Q4H PRN Administration Pain Rated 4-6 Oxycodone HCl 10 mg 03/13/24 12:40 03/13/24 17:02 Oxycodone Hcl (*Crx) 5 Mg Tab Ir PO 10 mg Q6H PRN Administration Pain Rated 7-10 Pantoprazole Sodium 40 mg 03/14/24 09:00 Pantoprazole 40 Mg Tablet PO DAILY [facility] Simethicone 80 mg 03/13/24 12:40 03/14/24 08:47 Simethicone 80 Mg Tab.Chew PO Not Given TIDWM [facility] Verapamil HCl 180 mg 03/14/24 09:00 03/14/24 08:10 Verapamil Hcl 180 Mg Tablet Er PO 180 mg DAILY [facility] Administration Vitamin D 2,000 units 03/14/24 09:00 03/14/24 09:22 Cholecalciferol 1,000 Units Tablet PO Not Given DAILY [facility] Radiology Results: ITS Impressions Abdomen/Pelvis CT 03/14/24 05:26 Impression: Findings suggestive of nonspecific small bowel enteritis. There is associated small amount of pneumoperitoneum, suspicious for bowel perforation, unless there is iatrogenic explanation for pneumoperitoneum. Small amount of abdominopelvic ascites. No mature/drainable abscess. Diffuse hepatic steatosis. Small amount of air in urinary bladder, presumably iatrogenic. Correlate clinically. Labs Labs: Laboratory Results - last 24 hr 03/14/24 03/14/24 05:12 07:29 WBC 6.7 RBC 4.58 Hgb 14.2 Hct 42.8 MCV 93.4 MCH 31.0 MCHC 33.2 RDW 14.1 Plt Count 269 MPV 10.1 Immature Gran % (Auto) 0.3 Neut % (Auto) 74.9 H Lymph % (Auto) 17.0 L Braxton % (Auto) 4.3 Eos % (Auto) 3.1 Baso % (Auto) 0.4 Lymph # (Auto) 1.14 Braxton # (Auto) 0.3 Eos # (Auto) 0.2 Baso # (Auto) 0.0 Abs Immat Gran (auto) 0.02 Absolute Neuts (auto) 5.0 Absolute Nucleated RBC 0.000 Nucleated RBC % 0.0 Creatinine 0.50 L Estim Creat Clear Calc 141 Estimated GFR > 60
--- NOTE | 2024-03-14 12:23 | PC.NURSE ---
Patient placed on 2L O2 around 1000 due to O2 sats being 90-91% on room air. O 2 sats increase to 95% after oxygen applied.
[2024-03-14] MEDS: SIMETHICONE 80 MG TAB.CHEW PO ×2 (12:30→17:18)
[2024-03-14] MEDS: CHOLECALCIFEROL 1,000 UNITS TABLET 2000 UNITS PO (12:44)
[2024-03-14] MEDS: ASPIRIN 81 MG ENTERIC TABLET PO (12:44)
[2024-03-14] MEDS: IBUPROFEN 600 MG TABLET PO ×2 (12:44→17:18)
[2024-03-14] MEDS: LORATADINE 10 MG TABLET PO (12:45)
[2024-03-14] MEDS: BACLOFEN 10 MG TABLET PO (12:45)
[2024-03-14] MEDS: SODIUM CHLORIDE 0.9% IV 1,000 ML 999 ML IV CONT (13:24)
[2024-03-14] MEDS: DEXTROSE 5%/0.45% SOD CHL 1,000 ML 125 ML IV CONT (14:53)
--- NOTE | 2024-03-14 14:55 | PC.NURSE ---
Patient transferred by bed to 2nd medical room 251 at 1430. Family followed to room with patient belongings. Patient relaxing with no complaints and call light within reach.
[2024-03-14] MEDS: HYDROcodone/acetaminophen (*CRX) 5-325 MG TABLET 1 TAB PO (20:21)
[2024-03-14] MEDS: SENNA/DOCUSATE SODIUM TABLET 2 TAB PO (20:22)
[2024-03-14] MEDS: TOLTERODINE TARTRATE LA 4 MG CAP.ER.24H PO (20:22)
[2024-03-14] MEDS: PHENAZOPYRIDINE HCL 100 MG TABLET PO (20:24)
[2024-03-14] MEDS: ONDANSETRON INJ 4 MG/2 ML VIAL IV PUSH (22:42)
[2024-03-14] MEDS: IBUPROFEN IV 800 MG/200 ML 800 MG/200 ML BAG 400 MG IVPB (22:43)
[2024-03-15] MEDS: HYDROcodone/acetaminophen (*CRX) 10-325 MG TABLET 1 TAB PO ×3 (00:11→11:01)
[2024-03-15] MEDS: PIPERACILLN/TAZ 3.375GM/NS50ML 3.375 GM/50 ML BAG IVPB ×2 (00:12→05:15)
[2024-03-15 00:39] VITALS: BP 139/86; PULSE 109; RESP 16; TEMP 36.4; O2SAT 92
[2024-03-15] MEDS: IBUPROFEN 600 MG TABLET PO ×3 (00:53→11:01)
[2024-03-15] MEDS: CYCLOBENZAPRINE HCL 5 MG TABLET PO (05:16)
[2024-03-15 06:20] LABS: Hematocrit 44.1 % (37.0-47.0); Hemoglobin 14.4 g/dL (12.0-15.0); Mean Corpuscular HGB Conc 32.7 g/dl (32-36); Mean Corpuscular Hemoglobin 31.2 pg (26-34); Mean Corpuscular Volume 95.5 fl (80-100); Mean Platelet Volume 10.3 fl (7.4-10.4); Platelet Count Result 265 k/mm3 (150-375); Red Blood Count 4.62 M/mm3 (4.2-5.4); Red Cell Distribution Width 14.7 % (11.5-14.5); White Blood Count 2.9 K/mm3 (4.5-10.0)
[2024-03-15] MEDS: metroNIDAZOLE 500 MG/ISO 100ML 500 MG/100 ML BAG 100 MG IVPB (06:21)
[2024-03-15 06:54] LABS: Anion Gap 6 mmol/L (4-12); Blood Urea Nitrogen 14 mg/dL (7-17); Calcium 8.9 mg/dL (8.4-10.2); Carbon Dioxide 21 mmol/L (22-30); Chloride 109 mmol/L (98-107); Estimated CRCL calculation 104 ml/min; Estimated Glomerular Filt Rate > 60; Glucose 136 mg/dL (65-110); Potassium 4.1 mmol/L (3.4-5.0); Sodium 136 mmol/L (137-145)
[2024-03-15 07:09] LABS: CRP 37.8 mg/dL (<1.0)
[2024-03-15] MEDS: SIMETHICONE 80 MG TAB.CHEW PO (09:32)
[2024-03-15] MEDS: BACLOFEN 10 MG TABLET PO (09:33)
[2024-03-15] MEDS: LORATADINE 10 MG TABLET PO (09:33)
[2024-03-15] MEDS: VERAPAMIL HCL 180 MG TABLET ER PO (09:33)
[2024-03-15] MEDS: ENOXAPARIN 40 MG/0.4 ML SYRINGE SUB-Q (09:33)
[2024-03-15] MEDS: levETIRAcetam 500 MG TABLET 1500 MG PO (09:33)
[2024-03-15 09:34] VITALS: PULSE 80
[2024-03-15] MEDS: busPIRone HCL 5 MG TABLET PO (09:34)
[2024-03-15] MEDS: PANTOPRAZOLE 40 MG TABLET PO (09:34)
[2024-03-15] MEDS: CHOLECALCIFEROL 1,000 UNITS TABLET 2000 UNITS PO (09:34)
[2024-03-15] MEDS: ASPIRIN 81 MG ENTERIC TABLET PO (09:34)
[2024-03-15] MEDS: DULoxetine HCL 60 MG CAPSULE.DR PO (09:34)
[2024-03-15] MEDS: METOPROLOL TARTRATE 25 MG TABLET PO (09:34)
[2024-03-15] MEDS: polyethylene glycoL 3350 17 GM POWD.PACK PO (09:34)
--- NOTE | 2024-03-15 10:46 | PM.PNGS ---
Progress Note: A&P Assessment and Plan (1) Accidental injury of intestine during surgical procedure: Code(s): K91.81 - Other intraoperative complications of digestive system Status: Acute Assessment and Plan: exam benign, ADAT, ok to dc home if kristen diet, f/u 2 wks Subjective Subjective Date/Time Seen: 03/15/24 10:46 Interval history: feels much better today, kristen diet, pain well controlled Review of Systems Review of Systems: All systems reviewed & are unremarkable except as noted in HPI and below Exam Const: General: cooperative, comfortable and no acute distress Resp: Auscultation: clear to auscultation bilaterally Cardio: Rate: regular rate Rhythm: regular rhythm GI: Inspection: normal to inspection, distended and incision GI Palp: Yes abdominal tenderness and Yes Soft to palpation Objective Data Vital Signs Vital Signs: Vital Signs - 24 hr 03/14/24 12:00 03/14/24 12:05 03/14/24 13:30 Temperature 36.3 C L 36.8 C Pulse Rate 100 Respiratory Rate Blood Pressure 90/70 L 84/47 L Pulse Oximetry 90 95 94 Oxygen Delivery 03/14/24 14:02 03/14/24 14:25 03/14/24 20:39 Temperature 36.8 C 36.4 C 36.4 C Pulse Rate 87 81 Respiratory Rate 15 16 16 Blood Pressure 96/62 L 95/65 L 126/57 L Pulse Oximetry 98 93 94 Oxygen Delivery 03/14/24 21:53 03/15/24 00:39 03/15/24 09:34 Temperature 36.4 C L Pulse Rate 109 H 80 Respiratory Rate 16 Blood Pressure 139/86 Pulse Oximetry 92 Oxygen Delivery Room Air Intake/Output Intake/Output: Intake & Output 03/12/24 03/13/24 03/14/24 03/15/24 23:59 23:59 23:59 23:59 Intake Total 3140 2090 400 Output Total 3870 800 Balance -730 1290 400 Meds/Results Medications: Active Medications Generic Name Dose Route Start Last Admin Trade Name Freq PRN Reason Stop Dose Admin Acetaminophen 500 mg 03/14/24 12:14 Acetaminophen 500 Mg Tablet PO Q6H PRN Pain Rated 1-3 Hydrocodone Bitart/Acetaminophen 1 tab 03/13/24 12:40 03/15/24 05:16 Hydrocodone/Acetaminophen (*Crx) 10-325 Mg Tablet PO 1 tab Q6HR SENDY Administration Hydrocodone Bitart/Acetaminophen 1 tab 03/14/24 12:14 03/14/24 20:21 Hydrocodone/Acetaminophen (*Crx) 5-325 Mg Tablet PO 1 tab Q4H PRN Administration Pain Rated 4-6 Aspirin 81 mg 03/15/24 09:00 03/15/24 09:34 Aspirin 81 Mg Enteric Tablet PO 81 mg DAILY SENDY Administration Baclofen 10 mg 03/15/24 09:00 03/15/24 09:33 Baclofen 10 Mg Tablet PO 10 mg DAILY SENDY Administration Buspirone HCl 5 mg 03/13/24 17:00 03/15/24 09:34 Buspirone Hcl 5 Mg Tablet PO 5 mg BID SENDY Administration Cyclobenzaprine HCl 5 mg 03/13/24 14:00 03/15/24 05:16 Cyclobenzaprine Hcl 5 Mg Tablet PO 5 mg Q8HR SENDY Administration Duloxetine HCl 60 mg 03/14/24 09:00 03/15/24 09:34 Duloxetine Hcl 60 Mg Capsule.Dr PO 60 mg DAILY SENDY Administration Enoxaparin Sodium 40 mg 03/15/24 09:00 03/15/24 09:33 Enoxaparin 40 Mg/0.4 Ml Syringe SUB-Q 40 mg DAILY SENDY Administration Fentanyl Citrate 50 mcg 03/14/24 12:14 Fentanyl Citrate Inj (*Crx) 100 Mcg/2 Ml Vial IV PUSH Q2H PRN Breakthrough Pain Rated 4-6 or NPO Fentanyl Citrate 100 mcg 03/14/24 12:14 Fentanyl Citrate Inj (*Crx) 100 Mcg/2 Ml Vial IV PUSH Q2H PRN Breakthrough Pain Rated 7-10 or NPO Piperacillin/Tazobactam/Dextrose 3.375 gm in 50 mls @ 100 mls/hr 03/13/24 17:00 03/15/24 05:45 Zosyn 3.375 Gm/Ns 50 Ml IVPB Infused Q6HR SENDY Infusion Metronidazole 500 mg in 100 mls @ 100 mls/hr 03/13/24 18:00 03/15/24 07:21 Flagyl 500 Mg/Iso Soln 100 Ml IVPB Infused Q12H SENDY Infusion Ibuprofen 800 mg in 200 mls @ 400 mls/hr 03/14/24 12:14 03/14/24 23:13 Caldolor 800 Mg/200 Ml IVPB Infused Q6H PRN Infusion Breakthrough Pain Rated 1-3 or NPO Ibuprofen 600 mg 03/14/24 06:00 03/15/24 06:21 Ibuprofen 600 Mg Tablet PO 600 mg Q6HR SENDY Administration Levetiracetam 1,500 mg 03/13/24 21:00 03/15/24 09:33 Levetiracetam 500 Mg Tablet PO 1,500 mg Q12HR SENDY Administration Loratadine 10 mg 03/15/24 09:00 03/15/24 09:33 Loratadine 10 Mg Tablet PO 10 mg DAILY SENDY Administration Metoprolol Tartrate 25 mg 03/14/24 09:00 03/15/24 09:34 Metoprolol Tartrate 25 Mg Tablet PO 25 mg DAILY [facility] Administration Ondansetron HCl 4 mg 03/13/24 12:40 03/14/24 22:42 Ondansetron Inj 4 Mg/2 Ml Vial IV PUSH 4 mg Q6H PRN Administration Nausea And Vomiting Pantoprazole Sodium 40 mg 03/14/24 09:00 03/15/24 09:34 Pantoprazole 40 Mg Tablet PO 40 mg DAILY [facility] Administration Polyethylene Glycol 17 gm 03/15/24 09:00 03/15/24 09:34 Polyethylene Glycol 3350 17 Gm Powd.Pack PO 17 gm QAM [facility] Administration Senna/Docusate Sodium 2 tab 03/14/24 21:00 03/14/24 20:22 Senna/Docusate Sodium Tablet PO 2 tab HS SENDY Administration Simethicone 80 mg 03/14/24 12:00 03/15/24 09:32 Simethicone 80 Mg Tab.Chew PO 80 mg TIDWM [facility] Administration Tolterodine Tartrate 4 mg 03/14/24 20:00 03/14/24 20:22 Tolterodine Tartrate La 4 Mg Cap.Er.24h PO 4 mg 2000 SENDY Administration Verapamil HCl 180 mg 03/15/24 09:00 03/15/24 09:33 Verapamil Hcl 180 Mg Tablet Er PO 180 mg DAILY SENDY Administration Vitamin D 2,000 units 03/15/24 09:00 03/15/24 09:34 Cholecalciferol 1,000 Units Tablet PO 2,000 units DAILY SENDY Administration Radiology Results: ITS Impressions Abdomen/Pelvis CT 03/14/24 05:26 Impression: Findings suggestive of nonspecific small bowel enteritis. There is associated small amount of pneumoperitoneum, suspicious for bowel perforation, unless there is iatrogenic explanation for pneumoperitoneum. Small amount of abdominopelvic ascites. No mature/drainable abscess. Diffuse hepatic steatosis. Small amount of air in urinary bladder, presumably iatrogenic. Correlate clinically. Labs Labs: Laboratory Results - last 24 hr 03/15/24 06:08 WBC 2.9 L RBC 4.62 Hgb 14.4 Hct 44.1 MCV 95.5 MCH 31.2 MCHC 32.7 RDW 14.7 H Plt Count 265 MPV 10.3 Sodium 136 L Potassium 4.1 Chloride 109 H Carbon Dioxide 21 L Anion Gap 6 BUN 14 Creatinine 0.70 Estim Creat Clear Calc 104 Estimated GFR > 60 Glucose 136 H Calcium 8.9 C-Reactive Protein 37.8 H
--- NOTE | 2024-03-15 11:10 | PM.DS ---
DS: Admitting Diagnosis Discharge Date March 15, 2023 Admitting Diagnosis menorrhagia DS: Discharge Diagnosis Discharge Diagnosis (1) Menorrhagia: Code(s): N92.0 - Excessive and frequent menstruation with regular cycle Status: Chronic (2) Accidental injury of intestine during surgical procedure: Code(s): K91.81 - Other intraoperative complications of digestive system Status: Acute (3) Postoperative abdominal pain: Code(s): R10.9 - Unspecified abdominal pain; G89.18 - Other acute postprocedural pain Status: Acute DS: Summary Hospital Course Reason for hospitalization: Treatment of severe menorrhagia Hospital Course: patient is a 43-year-old female presented to the hospital for robotic hysterectomy. During the procedure a small for full-thickness defect was made in the small intestine with a trocar. This was on initial insertion of the trocar. It was repaired by General surgery. On postoperative day 1 she had trouble with pain control. This was probably due to narcotic tolerance for chronic opioid use. Eventually the pain was managed well and on postoperative day 2 she is ready for discharge. She was afebrile throughout her stay. She was tolerating p.o. and passing flatus at appropriate times. Time Spent with Patient Time attestation: Total time spent providing and/or coordinating discharge services: DS: Data Data Completed and Pending Completed studies during hospitalization: Pending at discharge 03/13/24 09:05 Surgical [PTH] Routine Labs on day of discharge: Labs from last 24 hours 03/15/24 06:08 WBC 2.9 L RBC 4.62 Hgb 14.4 Hct 44.1 MCV 95.5 MCH 31.2 MCHC 32.7 RDW 14.7 H Plt Count 265 MPV 10.3 Sodium 136 L Potassium 4.1 Chloride 109 H Carbon Dioxide 21 L Anion Gap 6 BUN 14 Creatinine 0.70 Estim Creat Clear Calc 104 Estimated GFR > 60 Glucose 136 H Calcium 8.9 C-Reactive Protein 37.8 H Discharge Plan Discharge Consulting providers: Joni Anderson Discharging Clinician: Leno Moran Patient Disposition: Home, Self-Care Activity: as tolerated Diet: as tolerated Wound Care Instructions: incision open to air Patient Language: Croatian Follow-up/Referrals: Joni Anderson MD [Physician] - 2 Weeks Discharge Medications: New oxycodone 5 mg capsule 5 mg PO Q6H PRN (Reason: pain) Qty: 30 0RF Continued aspirin [Adult Aspirin Regimen] 81 mg tablet,delayed release (DR/EC) 81 mg PO DAILY cetirizine [24Hour Allergy] 10 mg tablet 10 mg PO DAILY levetiracetam 1,000 mg tablet 1,500 mg PO Q12H verapamil 180 mg capsule,ext rel. pellets 24 hr 180 mg PO DAILY baclofen 10 mg tablet 10 mg PO DAILY cyclobenzaprine 5 mg tablet 5 mg PO Q8H hydrocodone-acetaminophen 10-325 mg tablet 1 tablet PO Q6H cholecalciferol (vitamin D3) [Vitamin D3] 50 mcg (2,000 unit) capsule 2,000 unit PO DAILY pantoprazole 40 mg tablet,delayed release (DR/EC) 40 mg PO DAILY duloxetine 60 mg capsule,delayed release(DR/EC) 60 mg PO DAILY metoprolol tartrate 25 mg tablet 25 mg PO DAILY buspirone 5 mg tablet 5 mg PO BID Date of admission: 03/14/24 16:36 Primary Care Provider: Ofe,Jaden Admitting Provider: Leno Moran Attending physician on admission: Leno Moran Condition: Stable
--- NOTE | 2024-03-15 11:13 | P.PNOB_ITS ---
[facility] - A/P Postoperative Procedures: Procedures Operation Date: 03/13/24 07:30 Actual Procedure Side Surgeon p Robotic Assisted Hysterectomy with Bilateral Salpingectomy, Left Oophorectomy Bilateral Leno Moran MD s Diagnostic Laparoscopy, Robotic Assisted Laparoscopic Repair of Bowel Injury Not Applicable Joni Anderson MD Postoperative day: 2 Postoperative status: doing well and other (Tollerating Regular Diet) Postoperative plan: routine post-op care and discharge Time Spent With Patient Time: Total time spent is greater than 50% in coordination of care (as documented) at patient's floor/unit and/or counseling patient: Time with patient: 15 - 25 minutes [facility] [facility] [employer] [facility]- PN:Subj Post-Op Subjective Date/time seen: 03/15/24 11:13 Subjective: patient reports feeling better, pain is well controlled and patient is tolerating oral intake Exam 2 Const: General: cooperative, healthy appearing, comfortable and no acute distress Resp: Auscultation: no crackles, no rales, no rhonchi and no wheezes Cardio: Rhythm: regular rhythm Heart sounds: no click and no murmurs GI: Inspection: non-distended Auscultation: normal bowel sounds Other: Incisions - CDI Extrem: General: normal to inspection, no pedal edema and no calf tenderness [employer] [facility] [facility] [employer] [facility] - PN: Obj Data Vital Signs Vital Signs: Vital Signs - 24 hr 03/14/24 12:00 03/14/24 12:05 03/14/24 13:30 Temperature 97.4 F L 98.3 F Pulse Rate 100 Respiratory Rate Blood Pressure 90/70 L 84/47 L Pulse Oximetry 90 95 94 Oxygen Delivery 03/14/24 14:02 03/14/24 14:25 03/14/24 20:39 Temperature 98.3 F 97.6 F 97.6 F Pulse Rate 87 81 Respiratory Rate 15 16 16 Blood Pressure 96/62 L 95/65 L 126/57 L Pulse Oximetry 98 93 94 Oxygen Delivery 03/14/24 21:53 03/15/24 00:39 03/15/24 09:34 Temperature 97.5 F L Pulse Rate 109 H 80 Respiratory Rate 16 Blood Pressure 139/86 Pulse Oximetry 92 Oxygen Delivery Room Air Intake/Output Intake/Output: Intake & Output 03/12/24 03/13/24 03/14/24 03/15/24 23:59 23:59 23:59 23:59 Intake Total 3140 2090 400 Output Total 3870 800 Balance -730 1290 400 Meds/Results Medications: Active Medications Generic Name Dose Route Start Last Admin Trade Name Freq PRN Reason Stop Dose Admin Acetaminophen 500 mg 03/14/24 12:14 Acetaminophen 500 Mg Tablet PO Q6H PRN Pain Rated 1-3 Hydrocodone Bitart/Acetaminophen 1 tab 03/13/24 12:40 03/15/24 11:01 Hydrocodone/Acetaminophen (*Crx) 10-325 Mg Tablet PO 1 tab Q6HR SENDY Administration Hydrocodone Bitart/Acetaminophen 1 tab 03/14/24 12:14 03/14/24 20:21 Hydrocodone/Acetaminophen (*Crx) 5-325 Mg Tablet PO 1 tab Q4H PRN Administration Pain Rated 4-6 Aspirin 81 mg 03/15/24 09:00 03/15/24 09:34 Aspirin 81 Mg Enteric Tablet PO 81 mg DAILY SENDY Administration Baclofen 10 mg 03/15/24 09:00 03/15/24 09:33 Baclofen 10 Mg Tablet PO 10 mg DAILY SENDY Administration Buspirone HCl 5 mg 03/13/24 17:00 03/15/24 09:34 Buspirone Hcl 5 Mg Tablet PO 5 mg BID SENDY Administration Cyclobenzaprine HCl 5 mg 03/13/24 14:00 03/15/24 05:16 Cyclobenzaprine Hcl 5 Mg Tablet PO 5 mg Q8HR SENDY Administration Duloxetine HCl 60 mg 03/14/24 09:00 03/15/24 09:34 Duloxetine Hcl 60 Mg Capsule.Dr PO 60 mg DAILY SENDY Administration Enoxaparin Sodium 40 mg 03/15/24 09:00 03/15/24 09:33 Enoxaparin 40 Mg/0.4 Ml Syringe SUB-Q 40 mg DAILY SENDY Administration Fentanyl Citrate 50 mcg 03/14/24 12:14 Fentanyl Citrate Inj (*Crx) 100 Mcg/2 Ml Vial IV PUSH Q2H PRN Breakthrough Pain Rated 4-6 or NPO Fentanyl Citrate 100 mcg 03/14/24 12:14 Fentanyl Citrate Inj (*Crx) 100 Mcg/2 Ml Vial IV PUSH Q2H PRN Breakthrough Pain Rated 7-10 or NPO Piperacillin/Tazobactam/Dextrose 3.375 gm in 50 mls @ 100 mls/hr 03/13/24 17:00 03/15/24 05:45 Zosyn 3.375 Gm/Ns 50 Ml IVPB Infused Q6HR SENDY Infusion Metronidazole 500 mg in 100 mls @ 100 mls/hr 03/13/24 18:00 03/15/24 07:21 Flagyl 500 Mg/Iso Soln 100 Ml IVPB Infused Q12H SENDY Infusion Ibuprofen 800 mg in 200 mls @ 400 mls/hr 03/14/24 12:14 03/14/24 23:13 Caldolor 800 Mg/200 Ml IVPB Infused Q6H PRN Infusion Breakthrough Pain Rated 1-3 or NPO Ibuprofen 600 mg 03/14/24 06:00 03/15/24 11:01 Ibuprofen 600 Mg Tablet PO 600 mg Q6HR SENDY Administration Levetiracetam 1,500 mg 03/13/24 21:00 03/15/24 09:33 Levetiracetam 500 Mg Tablet PO 1,500 mg Q12HR SENDY Administration Loratadine 10 mg 03/15/24 09:00 03/15/24 09:33 Loratadine 10 Mg Tablet PO 10 mg DAILY SENDY Administration Metoprolol Tartrate 25 mg 03/14/24 09:00 03/15/24 09:34 Metoprolol Tartrate 25 Mg Tablet PO 25 mg DAILY SENDY Administration Ondansetron HCl 4 mg 03/13/24 12:40 03/14/24 22:42 Ondansetron Inj 4 Mg/2 Ml Vial IV PUSH 4 mg Q6H PRN Administration Nausea And Vomiting Pantoprazole Sodium 40 mg 03/14/24 09:00 03/15/24 09:34 Pantoprazole 40 Mg Tablet PO 40 mg DAILY SENDY Administration Polyethylene Glycol 17 gm 03/15/24 09:00 03/15/24 09:34 Polyethylene Glycol 3350 17 Gm Powd.Pack PO 17 gm QAM SENDY Administration Senna/Docusate Sodium 2 tab 03/14/24 21:00 03/14/24 20:22 Senna/Docusate Sodium Tablet PO 2 tab HS SENDY Administration Simethicone 80 mg 03/14/24 12:00 03/15/24 09:32 Simethicone 80 Mg Tab.Chew PO 80 mg TIDWM SENDY Administration Tolterodine Tartrate 4 mg 03/14/24 20:00 03/14/24 20:22 Tolterodine Tartrate La 4 Mg Cap.Er.24h PO 4 mg 2000 SENDY Administration Verapamil HCl 180 mg 03/15/24 09:00 03/15/24 09:33 Verapamil Hcl 180 Mg Tablet Er PO 180 mg DAILY SENDY Administration Vitamin D 2,000 units 03/15/24 09:00 03/15/24 09:34 Cholecalciferol 1,000 Units Tablet PO 2,000 units DAILY SENDY Administration Radiology Results: ITS Impressions Abdomen/Pelvis CT 03/14/24 05:26 Impression: Findings suggestive of nonspecific small bowel enteritis. There is associated small amount of pneumoperitoneum, suspicious for bowel perforation, unless there is iatrogenic explanation for pneumoperitoneum. Small amount of abdominopelvic ascites. No mature/drainable abscess. Diffuse hepatic steatosis. Small amount of air in urinary bladder, presumably iatrogenic. Correlate clinically. Labs 03/15/24 06:08 03/15/24 06:08 Labs: Laboratory Results - last 24 hr 03/15/24 06:08 WBC 2.9 L RBC 4.62 Hgb 14.4 Hct 44.1 MCV 95.5 MCH 31.2 MCHC 32.7 RDW 14.7 H Plt Count 265 MPV 10.3 Sodium 136 L Potassium 4.1 Chloride 109 H Carbon Dioxide 21 L Anion Gap 6 BUN 14 Creatinine 0.70 Estim Creat Clear Calc 104 Estimated GFR > 60 Glucose 136 H Calcium 8.9 C-Reactive Protein 37.8 H
--- OUTSIDE RECORDS SUMMARY | 2024-03-19 20:32 | XMS_ITS | Data Portability ---
Author Organization [facility] [place] Address [address] [place] [address] [place] [address] Care Team Providers Care Customer Engagement Representative Name Role Phone KETURAHNANNETTEROMY RAMIREZ Primary Care Provider Assessment No assessment recorded. Plan of Treatment Reminders Order Date Submit Date Provider Last Modified By Organization Details Last Modified Time Details Appointments SURG POST OP 2024 09:45A Keysha MORAN MD Not available Not available Not available Lab pap, IG + HR HPV - HPV regardles s but if HPV is positive need subtyping 16,18/45 2023 024 [facility] (Lab), [address], [place], [address], 01/13/2024 11:52:16 Referral None recorded. Procedures None recorded. Surgeries total hysterect silvio, laparosco pic, with bilateral salpingec sridevi (SURG) [address] Surgery [facility], [address], [place], [address], 03/13/2024 10:29:25 Imaging MAMMO, screening , digital, bilateral 2023 024 NIRANJAN Not available 01/14/2024 04:03:43 US, pelvis 2023 024 [email or web address] [place], [address], [address], [place], [address], 01/08/2024 14:44:16 US, transvagi nal 2023 024 [email or web address] [address], [address], [place], [address], 01/08/2024 14:44:16 Medication Orders fluconazo le 150 mg tablet 2023 [email or web address] Not available 03/13/2024 10:20:58 Patient TargetsNo targets recorded. Patient InstructionsNo instructions recorded. Reason for Referral None Reported. 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 Elect art ambrocio yifan d by Toma Herman on 2023 at 10:49 AM ----- ----- ----- ----- ----- ----- ----- ----- ----- ----- ----- ----- ----- ----- ----- ----- ----- ---- HPV RESUL TS: HPV mRNA E6/E7 : No HPV mRNA Detec prabhakar NOTE: This high risk HPV mRNA assay detec ts fourt een high- risk HPV types (16, 18, 31, 33, 35, 39, 45, 51, 52, 56, 58, 59, 66, 68) witho ut diffe renti ation . COMME NT: This speci men was revie wed by a Cytot echno logis t and/o r Patho logis t (as indic ated in this repor t) after evalu ation using the Thinp rep Imagi ng Syste m. CLINI AANHY INFOR MATIO N: Menst rual Statu s: LMP (if appli cable ): Clini anahy Histo ry/Pr eviou s Pap: Type of Neopl sheeba (if appli cable ): Signi fican t Clini anahy Findi ngs: Other Histo ry: Hormo marshall (if appli cable ): PAP EDUCA RAMOS L NOTE: The Pap Test is a scree tony test with an inher ent false negat tiffany rate. Liqui d-bas ed sampl ing may decre ase, but will not elimi aruna, false negat tiffany resul ts. A negat tiffany resul t does not precl ude the prese nce and/o r devel opmen t of disea se, since the prese nce of abnor mal cells in the sampl e depen ds on the locat ion of the lesio n and sampl ing techn ique. Arie nued regul ar scree tony is the best metho d of cance r preve ntion . If repor prabhakar cytol ogic findi ng do not corre late with physi anahy and/o r histo rical findi ngs, furth er inves tigat ion is recom jack d, as broi ty escobar nted. Not Available [facility] (Lab) [address], [place], [address], 01/13/2024 11:52:16 01/08/20 24 01/08/2024 US, pelvi s No observ ation record ed. [facility] [address], [place], [address], 01/08/2024 14:31:52 01/08/20 24 01/08/2024 US, trans vagin al No observ ation record ed. [facility] [address], [place], [address], 01/08/2024 14:32:03 01/08/20 24 01/08/2024 US, pelvi s No observ ation record ed. [facility] [address], [place], [address], 01/08/2024 18:50:52 03/14/19 25 03/14/2024 CT, abdom en + pelvi s, w/ contr ast No observ ation record ed. [address], [place], [address], 03/15/2024 13:10:35 Result Notes None recorded. Procedures Surgical History Date Name Laterality Status Provider Name and Address Organization Details Recorded Time 03/13/19 25 TOTAL HYSTERECTOMY, LAPAROSCOPIC, WITH BILATERAL SALPINGECTOMY (SURG) [facility] 03/13/2024 12:47:27 03/13/19 25 TOTAL HYSTERECTOMY, LAPAROSCOPIC, WITH BILATERAL SALPINGECTOMY (SURG) [facility] 03/13/2024 15:50:38 01/07/20 24 Date of Last Pap Smear completed Pilar Lizama [facility] 01/28/2024 11:49:11 02/10/20 23 Date of [facility] 01/[facility] 11:22:07 01/11/20 23 [facility] 01/07/2024 11:28:11 10/21/19 23 craniotomy completed [facility] 01/07/2024 11:28:01 03/12/19 20 Date of Last Colonoscopy completed [facility] 01/07/2024 11:22:29 Caesarean Section completed [facility] 01/07/2024 11:27:40 Caesarean Section completed [facility] 01/07/2024 11:27:46 Imaging Results Imaging Date Name Status LastModified by Organization Details LastModified Time 01/08/2024 US, pelvis completed jorge Anand [address], [place], [address], 01/08/2024 14:31:52 01/08/2024 US, transvaginal completed jorge hong [address], [place], [address], 01/08/2024 14:32:03 01/08/2024 US, pelvis completed [email or web address] [address], [place], [address], 01/08/2024 18:50:52 03/14/2024 CT, abdomen + pelvis, w/ contrast completed [email or web address] [facility] [address], [place], [address], 03/15/2024 13:10:35 Procedure Notes None recorded. Medical Equipment Implant VERONIKA Issuing Agency Serial Number Lot Number Status Provider Name and Address Organization Details Recorded Time Loop recorder FDA Y ROSA LIN NP [address], [place], [address], [facility] 01/07/2024 13:02:23 Allergies Allergen ID Allergen Name Allergen Category Reaction Reaction Severity Criticality Documentation Date Start Date Code Code System Note Provider Name and Address Organization Details Recorded Time 11633 latex environme nt,medica tion Not available Not available Not available 01/07/2024 35627 91 RxNorm Jyoti Amador [facility] 4 11:18:03 26973 vancomyci n medicatio n Not available Not available Not available 01/07/2024 83516 RxNorm Jyoti Amador [facility] 11:18:08 Medications Name Sig Start Date Stop Date Status Note LastModified by Organization Details LastModified Time buspirone 5 mg tablet active Not Available Not Available No t Available naproxen 375 mg tablet 01/06 completed Not Available Not Available Not Available divalproex 250 mg tablet,kassie yed release 01/06 completed Not Available Not Available Not Available fluconazole 150 mg tablet Take 1 tablet by oral route as directed. 03/03 completed Not Available Not Available Not Available levetiracet am 500 mg tablet TAKE 1 TABLET BY MOUTH TWICE DAILY 03/03 completed Not Available Not Available Not Available hydrocodone 5 mg-acetamin ophen 325 mg tablet TAKE 1 TO 2 TABLETS BY MOUTH EVERY 6 HOURS NEEDED FOR PAIN OR ACUTE PAIN 01/06 completed Not Available Not Available Not Available phenazopyri dine 200 mg tablet 03/03 completed Not Available Not Available Not Available prednisone 20 mg tablet TAKE 3 TABLETS BY MOUTH DAILY FOR 3 DAYS THEN TAKE 2 TABLETS BY MOUTH DAILY FOR 3 DAYS THEN TAKE 1 TABLET BY MOUTH DAILY FOR 3 DAYS 01/06 completed Not Available Not Available Not Available topiramate 25 mg tablet 01/06 completed Not Available Not Available Not Available hydrocodone 10 mg-acetamin ophen 325 mg tablet TAKE 1/2 TO 1 TABLET BY MOUTH EVERY 6 HOURS NEEDED FOR PAIN OR CHRONIC PAIN active Not Available Not Available No t Available ondansetron 8 mg disintegrat ing tablet active Not Available Not Available N ot Available bethanechol chloride 25 mg tablet 01/06 completed Not Available Not Available Not Available verapamil ER 180 mg 24 hr capsule,ext ended release active Not Available Not Available Not Available lorazepam 0.5 mg tablet TAKE 1 TABLET BY MOUTH TWICE DAILY 01/06 completed Not Available Not Available Not Available tamsulosin 0.4 mg capsule 01/06 completed Not Available Not Available Not Available baclofen 10 mg tablet TAKE 1 TABLET BY MOUTH DAILY active Not Available Not Available No t Available cephalexin 500 mg capsule 01/27 completed Not Available Not Available Not Available pantoprazol e 40 mg tablet,kassie yed release TAKE 1 TABLET BY MOUTH DAILY active Not Available Not Available No t Available betamethaso ne dipropionat e 0.05 % topical cream APPLY TOPICALLY TO THE AFFECTED AREA TWICE DAILY 01/06 completed Not Available Not Available Not Available gabapentin 300 mg capsule 01/06 completed Not Available Not Available Not Available hydroxyzine HCl 25 mg tablet TAKE 1 TABLET BY MOUTH EVERY 8 HOURS NEEDED active Not Available Not Available No t Available ondansetron 4 mg disintegrat ing tablet 03/03 completed Not Available Not Available Not Available cefdinir 300 mg capsule 03/03 completed Not Available Not Available Not Available amoxicillin 875 mg-potassiu m clavulanate 125 mg tablet TAKE 1 TABLET BY MOUTH EVERY 12 HOURS FOR 7 DAYS 01/06 completed Not Available Not Available Not Available verapamil ER 120 mg 24 hr capsule,ext ended release TAKE 1 CAPSULE BY MOUTH EVERY NIGHT AT BEDTIME 03/03 completed Not Available Not Available Not Available metaxalone 800 mg tablet 01/06 completed Not Available Not Available Not Available cyclobenzap rine 5 mg tablet active Not Available Not Available Not Available metoprolol tartrate 25 mg tablet TAKE 1 TABLET BY MOUTH TWICE DAILY active Not Available Not Available No t Available nitrofurant oin monohydrate /macrocryst als 100 mg capsule TAKE 1 CAPSULE BY MOUTH TWICE DAILY FOR 5 DAYS 03/03 completed Not Available Not Available Not Available duloxetine 30 mg capsule,del ayed release 01/06 completed Not Available Not Available Not Available duloxetine 60 mg capsule,del ayed release active Not Available Not Available Not Available Vitamin D3 active Not Available Not Av ailable Not Available Zyrtec active Not Available Not Availa ble Not Available levetiracet am 1,000 mg tablet TAKE 1.5 TABLETS BY MOUTH TWICE DAILY active Not Available Not Available No t Available diclofenac 1 % topical gel APPLY 2 GRAMS TOPICALLY TO THE AFFECTED AREA FOUR TIMES DAILY 01/06 completed Not Available Not Available Not Available naloxone 4 mg/actuatio n nasal spray SPRAY 1 SPRAY IN THE NOSTRIL NEEDED FOR OPIOID REVERSAL. MAY REPEAT EVERY 2-3 MINUTES IN ALTERNATI NG NOSTRILS UNTIL MEDICAL ASSISTANC E ARRIVES 01/27 completed Not Available Not Available Not Available baclofen 5 mg tablet TAKE 1 TABLET BY MOUTH DAILY 01/06 completed Not Available Not Available Not Available Ubrelvy 100 mg tablet active Not Available Not Available No t Available aspirin 81 mg capsule Take 1 capsule every day by oral route. active Not Available Not Available No t Available Vitals Date Recorded Body height Body mass index (BMI) Body weight Systolic blood pressure Diastolic blood pressure Provider Name and Address Organization Details Last Updated DateTime 01/28/2024 162.56 cm 40.3 kg/m2 915682.2 1 g 128 mm[Hg] 74 mm[Hg] [facility] 4 11:47:18 Date Recorded Body height Body mass index (BMI) Body weight Systolic blood pressure Diastolic blood pressure Provider Name and Address Organization Details Last Updated DateTime 03/03/2024 162.56 cm 40.3 kg/m2 702752.2 1 g 110 mm[Hg] 68 mm[Hg] Pilar [facility] 4 15:32:57 Social History Question Answer Notes LastModified by Organizat ion Details LastModified Time Tobacco Smoking Status Never Smoker [facility] 01/07/2024 11:25:46 Do You Have An Advance Directive? No [email or web address] Information n ot available 01/07/2024 What Is Your Level Of Alcohol Consumption? None [email or web address] Information not available 01/07/2024 Are You Blind Or Do You Have Difficulty Seeing? No Information n ot available 01/07/2024 In The 14 Days Before Symptom Onset, Have You Had Close Contact With A Laboratory-confirm ed COVID-19 While That Case Was Ill? No [email or web address] Information n ot available 01/07/2024 In The 14 Days Before Symptom Onset, Have You Had Close Contact With A Person Who Is Under Investigation For COVID-19 While That Person Was Ill? No Information not available 01/07/2024 Have You Been To An Area Known To Be High Risk For COVID-19? No [email or web address] Information not available 01/07/2024 Are You Currently Employed? No [email or web address] Information not available 01/07/2024 Are You Deaf Or Do You Have Serious Difficulty Hearing? No Information not available 01/07/2024 What Type Of Diet Are You Following? REGULAR [email or web address] Information n ot available 01/07/2024 What Is The Highest Grade Or Level Of School You Have Completed Or The Highest Degree You Have Received? DS80493-4 [email or web address] Information not available 01/07/2024 Are There Any Guns Present In Your Home? Yes [email or web address] Information not available 01/07/2024 Do You Use Your Seat Belt Or Car Seat Routinely? Yes [email or web address] Information not available 01/07/2024 Are You Sexually Active? Yes [email or web address] Information not available 01/07/2024 Do You Have Smoke And Carbon Monoxide Detectors In Your Home? Yes Information not available 01/07/2024 Do You Feel Stressed (tense, Restless, Nervous, Or Anxious, Or Unable To Sleep At Night)? SN23323-2 [email or web address] Information not available 01/07/2024 Do You Use Sunscreen Routinely? Yes [email or web address] Information not available 01/07/2024 Sex: Unknown Functional Status Question Answer Note LastModified by Organization D etails LastModified Time Do you have difficulty walking or climbing stairs? Yes [email or web address] Information not available 01/07/2024 Are you able to care for yourself? No [email or web address] Information n ot available 01/07/2024 Do you have difficulty dressing or bathing? Yes [email or web address] Information not available 01/07/2024 Mental Status None recorded. Family History Relationship Description Onset Age of this Age Resolved Age Notes LastModified by Organization Details LastModified Time Maternal Aunt Malignant tumor of breast [email or web address] Not available 2023 11:25:34 Mother Heart disease [email or web address] Not available 2023 12:22:06 Mother Diabetes mellitus [email or web address] Not available 2023 12:22:16 Mother Hypercholest erolemia [email or web address] Not available 2023 12:23:01 Mother Disorder of thyroid gland [email or web address] Not available 2023 12:23:14 Maternal Grandfather Heart disease [email or web address] Not available 2023 12:22:32 Maternal Grandmother Hypercholest erolemia Not available 2023 12:23:01 Father Hypercholest erolemia [email or web address] Not available 2023 12:23:01 Medical History Condition Response Anxiety Disorder Y Stroke Y High Cholesterol Y Depression/ depression Y Hypertension Y Gynecological History Statement/Question Response Abnormal Pap N Date of Last Mammogram 02/09/2023 Flow Heavy Date of LMP 01/28/2024 On BCP's at Conception? N Was last menstrual period normal N STIs/STDs N HPV Vaccine N Duration of Flow (days) 9 Age at First Child 27 Are cycles usually normal N Date of Last Colonoscopy 03/12/2019 Frequency of Cycle (Q days) 7 Sexually Active? Y Menses Monthly Y Age of first menstrual cycle 19 Date of Last Pap Smear 01/07/2024 Sexual Problems? Y Desired Control Method Hysterectom y LMP Definite Obstetrics History GPAL:G 2 P 0 0 0 2 Type Value Living 2 Total 2 Past Encounters Encounter ID Performer Location Encounter Start Date Encounter Closed Date Diagnosis/Indication Diagnosis SNOMED-CT Code Diagnosis ICD10 Code Diagnosis Note [id number] ROSA LIN, MARLI [facility] [address] [address] 01/07/2024 10:43:46 01/07/2024 14:34:19 Gynecologic examination 68960885 Z01.419 Annual gynecologi anahy exam performed. Patient will come back in a year unless there are new symptoms. Suggest Calcium with Vitamin D if not eating in diet. Patient advised to get annual flu shot. Recommend yearly physicals and perform monthly breast exams. Genetic testing is available for patients with family history of cancer. Engage in safe sexual practices, use condoms. Encouraged to have daily exercise. Avoid tobacco and illicit drugs, moderation of alcohol. If BMI greater than 25 dietary consult advised. If you have any questions please call or email. mammogram- DUE in February, pt to schedule - order given colon cancer screening - UTD - PCP DEXA scan- n/a Pap smear- Pap with HPV collected today laboratory evaluation - PCP STI testing - declined Menorrhagia 144102692 N9 2.0 Today we discussed multiple options for menorrhagi a including: progestero ne-only IUD, endometria l ablation, or hysterecto my (requires MD consult). We discussed if any are contraindi cated with her current health Hx, such as any combined estrogen/p rogesteron e hormonal BC options.Dean corrales interested in endometria l ablation or partial hysterecto my. Recommende d pelvic U/S to r/o certain causes of menorrhagi a and MD consult to further discuss surgical options. Screening mammography 24 829323 Z12.31 Order given, pt to schedule. Vaginal discharge 726874 006 N89.8 Discussed empirical treatment with fluconazol e for suspected yeast infection based on reported symptoms and physical exam findings.D iscussed vulvar care guidelines in addition to laundry/sk in irritants to avoid. [id number] [facility] [address] [address] 01/08/2024 13:45:55 01/08/2024 14:27:51 Menorrhagia 211967454 N92.0 [id number] Leno Moran MD [facility] [address] [address] 01/28/2024 11:17:18 01/28/2024 16:11:20 Menorrhagia 369030764 N92.0 43-year-ol d female with severe menorrhagi a and severe dysmenorrh ea. Patient is disabled after a stroke. The etiology of her stroke is unknown. She has been cleared for surgical procedures historical ly. She has longstandi ng very heavy bleeding. Her menses are regular. However, they require double protection . Patient has accidents, getting blood on her bedding and clothing. Is affected work. She changes a pad or tampon every hour. She leaks blood around the pad and tampon. This bleeding has a profound impact on her quality of life and her activities of daily living. We discussed treatment in great detail. We discussed medical and surgical treatment options. After lengthy discussion of endometria l ablation hysterecto my. The patient would like to proceed with total laparoscop ic hysterecto my bilateral salpingect silvio. The patient understand s the procedure. The procedure was described to the patient in great detail. the patient also understand s the risks. The risks were also explained in detail. She understand s that injuries May occur during surgery. She understand s these injuries can result in hospitaliz ation, more surgery, and severe illness. She understand s there is risk of hemorrhage and infection. I spent over 30 minutes on the patient's care. We will proceed with laparoscop ic hysterecto my and bilateral salpingect silvio. [id number] Leno Moran MD [facility] [address] [address] 03/03/2024 15:20:19 03/08/2024 03:51:31 Menorrhagia [id number] N92.0 43-year-ol d female with severe menorrhagi a. Patient is here to discuss hysterecto my. It has not been scheduled yet. There is some misunderst anding about the urology aspect of the case. We will move forward with scheduling the surgery without the urology stent placement. We will do a roboticall y. Health Concerns Section Related Observation LastModified by Organization Detai ls LastModified Time None Recorded Concern Status LastModified by Organization Details LastModified Time None Recorded Advance Directives Directive N: Payers Encounter Date Sequence Insurance Name Policy Number Policy Govea Covered Member ID Govea Member ID Guarantor Name 01/07/2024 1 [employer] [id number] [employer] [id number] 2 [facility] 01/08/2024 1 [employer] [id number] Consuelo [place] [id number] 2 Consuelo [place] 01/28/2024 1 [employer] [id number] Consuelo [place] [id number] 2 Consuelo [place] 03/03/2024 1 [employer] [id number] Consuelo [place] [id number] 2 [facility] Notes Date Note Type Note Provider Name and Address Organization Details Recorded Time 01/07/2024 text/html Annual GYNReport ed bypatient.Urinary symptoms:No hematuria; No incontinence Vulva:No genital lesion Vagina:Normal vaginal discharge Breast:No breast pain; No breast lump; No nipple discharge Current Contraception:Condoms Sexual complaints:No sexual complaints; No pain during intercourse; Normal libido Menopausal Symptoms:No menopausal symptoms; Normal vaginal lubrication Psychological symptoms:No depression; No anxiety; No PMDD Preventive measures:Encourage self breast examination; Encourage regular exercise; Encourage no tobacco use; Encourage regular mammograms starting age 40; Needs to schedule mammogram; Up to date on colonoscopy screening New patient here to establish care and for annual exam.Patient has history of ischemic stroke in October 2023 and subsequently stopped combined oral contraceptive pills.Patient now c/o heavy, long, and painful periods since stopping LUCIE pills. Patient cycles q3-4 weeks, last 7-10 days with heavy flow. Patient often bleeds through pads.Patient states that she had heavy and painful periods before starting hormonal control several years ago. Denies known hx of ovarian cysts, fibroids, or endometriosis. Patient interested in ablation or hysterectomy. Patient is on aspirin 81 mg for anticoagulation, not on any other anticoagulants.Maxwell muller reports having difficulty moving left side of body, uses wheelchair. Patient is currently in PT/OT.Patient also c/o frequent yeast infections d/t heavy periods. Pt c/o itching and vaginal discharge. ROSA LIN, MARLI [address], [place], [address], [facility] [place] 01/07/2024 13:44:50 01/28/2024 text/html 43-year-old fema le with severe menorrhagia and severe dysmenorrhea. Patient is disabled after a stroke. The etiology of her stroke is unknown. She has been cleared for surgical procedures historically. She has longstanding very heavy bleeding. Her menses are regular. However, they require double protection. Patient has accidents, getting blood on her bedding and clothing. Is affected work. She changes a pad or tampon every hour. She leaks blood around the pad and tampon. This bleeding has a profound impact on her quality of life and her activities of daily living. We discussed treatment in great detail. We discussed medical and surgical treatment options. After lengthy discussion of endometrial ablation hysterectomy. The patient would like to proceed with total laparoscopic hysterectomy bilateral salpingectomy. The patient understands the procedure. The procedure was described to the patient in great detail. the patient also understands the risks. The risks were also explained in detail. She understands that injuries May occur during surgery. She understands these injuries can result in hospitalization, more surgery, and severe illness. She understands there is risk of hemorrhage and infection. I spent over 30 minutes on the patient's care. We will proceed with laparoscopic hysterectomy and bilateral salpingectomy. Leno Moran MD [address], [place], [address], [facility] 01/28/2024 16:01:22 03/03/2024 text/html 43-year-old fema le with severe menorrhagia. Patient is here to discuss hysterectomy. It has not been scheduled yet. There is some misunderstanding about the urology aspect of the case. We will move forward with scheduling the surgery without the urology stent placement. We will do a robotically. Leno Moran MD [address], [place], [address], [facility] 03/06/2024 22:19:55 OBGyn Episode Ob Episode Information Episode Created Date Number of Fetuses Patient Bloodtype Patient rh Status Prepregnancy Weight lbs Domestic Partner Domestic Partner Phone Father Name Corporate Law Specialist Status 01/07/20 24 1 CLOSED Fetus Data First Name Last Name Admitted to NICU Weight (g) Sex Living Outcome Pediatric Complications Fetus ID Race Codes Race Delivery Type 9.28 [id number] Primary Mikal Calculation Initial Mikal Date Initial Exam Date Initial Exam Provider Initial Ultrasound Date Last Menstrual Period Date Ultra Sound Weeks Gestation 0 Eighteen To Twenty Week Mikal Update Ultra Sound Date Fundal Height At Umbil Quickening Date Ultra Sound Latest Weeks Gestation Final Mikal Confirmed By Final Mikal Confirmed Date Final Mikal Date Ultra Sound Latest Days Gestation 0 0 Menstrual History Last Menstrual Date Menses Monthly On Bcp Conception Prior Menses Frequency Hcg Plus Date Menarche Onset Age Delivery Information Delivery Date Delivery Type Labor Anesthesia Weeks Gestation Incision Type Labor Labor Length Hrs Delivered By Post Complications Tubal Sterilization Discharge Date Comments 8 35 Discharge Information Feeding Method Contraceptive Method Maternal HG B and HCT Levels Ob Episode Information Episode Created Date Number of Fetuses Patient Bloodtype Patient rh Status Prepregnancy Weight lbs Domestic Partner Domestic Partner Phone Father Name Corporate Law Specialist Status 01/07/20 24 1 CLOSED Fetus Data First Name Last Name Admitted to NICU Weight (g) Sex Living Outcome Pediatric Complications Fetus ID Race Codes Race Delivery Type [id number] Primary Mikal Calculation Initial Mikal Date Initial Exam Date Initial Exam Provider Initial Ultrasound Date Last Menstrual Period Date Ultra Sound Weeks Gestation 0 Eighteen To Twenty Week Mikal Update Ultra Sound Date Fundal Height At Umbil Quickening Date Ultra Sound Latest Weeks Gestation Final Mikal Confirmed By Final Mikal Confirmed Date Final Mikal Date Ultra Sound Latest Days Gestation 0 0 Menstrual History Last Menstrual Date Menses Monthly On Bcp Conception Prior Menses Frequency Hcg Plus Date Menarche Onset Age Delivery Information Delivery Date Delivery Type Labor Anesthesia Weeks Gestation Incision Type Labor Labor Length Hrs Delivered By Post Complications Tubal Sterilization Discharge Date Comments 6 36 Discharge Information Feeding Method Contraceptive Method Maternal HG B and HCT Levels
--- OUTSIDE RECORDS SUMMARY | 2024-03-19 20:32 | XMS_ITS | Continuity of Care Document ---
Author Organization [facility] [place] Address [address] [place] [address] Care Team Providers Care Policy Loan Calculator Name Role Phone ROMY PENA Primary Care Provider Assessment No assessment recorded. Plan of Treatment Reminders Order Date Submit Date Provider Last Modified By Organization Details Last Modified Time Details Appointments SURG POST OP 2024 09:45A Keysha HERRERA MD Not available Not available Not available Lab None recorded. Referral None recorded. Procedures None recorded. Surgeries total hysterect silvio, laparosco pic, with bilateral salpingec sridevi (SURG) 2023 024 [email or web address] [facility], [address], [place], [address], 03/13/2024 10:29:25 Imaging None recorded. Medication Orders None recorded. Patient TargetsNo targets recorded. Patient InstructionsNo instructions recorded. Reason for Referral None Reported. Results Created Date Observation Date Name Description Value Unit Range Abnormal Flag Note LastModifiedBy Organization Detail LastModifiedTime 01/08/2001/08/2024 , pelvi s No observ ation record ed. [facility] [address], [place], [address], 01/08/2024 14:31:52 01/08/20 24 01/08/2024 US, trans vagin al No observ ation record ed. [facility] [address], [place], [address], 01/08/2024 14:32:03 01/08/20 24 01/08/2024 US, pelvi s No observ ation record ed. [facility] [address], [place], [address], 01/08/2024 18:50:52 03/14/19 25 03/14/2024 CT, abdom en + pelvi s, w/ contr ast No observ ation record ed. [address] [facility] [address], [place], [address], 03/15/2024 13:10:35 Result Notes None recorded. Procedures Surgical History Date Name Laterality Status Provider Name and Address Organization Details Recorded Time 03/13/19 25 TOTAL HYSTERECTOMY, LAPAROSCOPIC, WITH BILATERAL SALPINGECTOMY (SURG) completed [facility] 03/13/2024 12:47:27 03/13/19 25 TOTAL HYSTERECTOMY, LAPAROSCOPIC, WITH BILATERAL SALPINGECTOMY (SURG) completed [facility] 03/13/2024 15:50:38 01/07/20 24 Date of Last Pap Smear completed Pilar Lizama [facility] 01/28/2024 11:49:11 02/10/20 23 Date of Last Mammogram completed [facility] 01/07/2024 11:22:07 01/11/20 23 cranioplasty completed [facility] 01/07/2024 11:28:11 10/21/19 23 craniotomy completed [facility] 01/07/2024 11:28:01 03/12/19 20 Date of Last Colonoscopy completed [facility] 01/07/2024 11:22:29 Caesarean Section completed [facility] 01/07/2024 11:27:40 Caesarean Section completed [facility] 01/07/2024 11:27:46 Imaging Results None recorded. Procedure Notes None recorded. 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 01/07/2024 13:02:23 Allergies Allergen ID Allergen Name Allergen Category Reaction Reaction Severity Criticality Documentation Date Start Date Code Code System Note Provider Name and Address Organization Details Recorded Time 07697 latex environme nt,medica tion Not available Not available Not available 01/07/2024 40656 91 RxNorm Jytoi Amador laure, [facility] 11:18:03 45486 vancomyci n medicatio n Not available Not available Not available 01/07/2024 53013 RxNorm Jyoti Amador laure, [facility] 11:18:08 Medications Name Sig Start Date [...] Updated DateTime 01/28/2024 162.56 cm 40.3 kg/m2 018084.2 1 g 128 mm[Hg] 74 mm[Hg] Pilar Lizama [facility] 11:47:18 Social History Question Answer Notes LastModified by Organizat ion Details LastModified Time Tobacco Smoking Status Never Smoker Jyoti Amador laure, [facility] 01/07/2024 11:25:46 Do You Have An Advance Directive? No [email or web address] Information n ot available 01/07/2024 What Is Your Level Of Alcohol Consumption? None Information not available 01/07/2024 Are You Blind Or Do You Have Difficulty Seeing? No [email or web address] Information n ot available 01/07/2024 In The 14 Days Before Symptom Onset, Have You Had Close Contact With A Laboratory-confirm ed COVID-19 While That Case Was Ill? No [email or web address] Information n ot available 01/07/2024 In The 14 Days Before Symptom Onset, Have You Had Close Contact With A Person Who Is Under Investigation For COVID-19 While That Person Was Ill? No [email or web address] Information not available 01/07/2024 Have You Been To An Area Known To Be High Risk For COVID-19? No [email or web address] Information not available 01/07/2024 Are You Currently Employed? No [email or web address] Information not available 01/07/2024 Are You Deaf Or Do You Have Serious Difficulty Hearing? No [email or web address] Information not available 01/07/2024 What Type Of Diet Are You Following? REGULAR aeurrot03 Information n ot available 01/07/2024 What Is The Highest Grade Or Level Of School You Have Completed Or The Highest Degree You Have Received? DC27240-2 [email or web address] Information not available 01/07/2024 Are There Any Guns Present In Your Home? Yes [email or web address] Information not available 01/07/2024 Do You Use Your Seat Belt Or Car Seat Routinely? Yes Information not available 01/07/2024 Are You Sexually Active? Yes [email or web address] Information not available 01/07/2024 Do You Have Smoke And Carbon Monoxide Detectors In Your Home? Yes [email or web address] Information not available 01/07/2024 Do You Feel Stressed (tense, Restless, Nervous, Or Anxious, Or Unable To Sleep At Night)? [id number] [email or web address] Information not available 01/07/2024 Do You Use Sunscreen Routinely? Yes Information not available 01/07/2024 Sex: Unknown Functional Status Question Answer Note LastModified by Organization D etails LastModified Time Do you have difficulty walking or climbing stairs? Yes [email or web address] Information not available 01/07/2024 Are you able to care for yourself? No Information n ot available 01/07/2024 Do you have difficulty dressing or bathing? Yes [email or web address] Information not available 01/07/2024 Mental Status None recorded. Family History Relationship Description Onset Age of this Age Resolved Age Notes LastModified by Organization Details LastModified Time Maternal Aunt Malignant tumor of breast [email or web address] Not available 2023 11:25:34 Mother Heart disease orxirxy82 Not available 2023 12:22:06 Mother Diabetes mellitus [email or web address] Not available 2023 12:22:16 Mother Hypercholest erolemia nyizfbn82 Not available 2023 12:23:01 Mother Disorder of thyroid gland [email or web address] Not available 2023 12:23:14 Maternal Grandfather Heart disease [email or web address] Not available 2023 12:22:32 Maternal Grandmother Hypercholest erolemia [email or web address] Not available 2023 12:23:01 Father Hypercholest erolemia ydxqrfy48 Not available 2023 12:23:01 Medical History Condition [...] SNOMED-CT Code Diagnosis ICD10 Code Diagnosis Note [id number] WALT LIN NP [place] [address] [address] 01/07/2024 10:43:46 01/07/2024 14:34:19 Gynecologic examination 24987354 Z01.419 Annual gynecologi anahy exam performed. Patient [...] - PCP STI testing - declined Menorrhagia 756800052 N9 2.0 Today we discussed multiple options [...] further discuss surgical options. Screening mammography 24 750965 Z12.31 Order given, pt to schedule. Vaginal discharge 125252 006 N89.8 Discussed empirical treatment with fluconazol e for suspected yeast infection based on reported symptoms and physical exam findings.D iscussed vulvar care guidelines in addition to laundry/sk in irritants to avoid. [id number] Elida Luna [place] [address] [address] 01/08/2024 13:45:55 01/08/2024 14:27:51 Menorrhagia 035401919 N92.0 [id number] Leno Herrera MD [place] [address] [address] 01/28/2024 11:17:18 01/28/2024 16:11:20 Menorrhagia 835734197 N92.0 43-year-ol d female with severe menorrhagi [...] ic hysterecto my and bilateral salpingect silvio. Health Concerns Section Related Observation LastModified by Organization Detai ls LastModified Time None Recorded Concern Status LastModified by Organization Details LastModified Time None Recorded Payers Encounter Date Sequence Insurance Name Policy Number Policy Govea Covered Member ID Govea Member ID Guarantor Name 01/28/2024 1 [facility] [id number] Consuelo Darby [id number] Conseulo Darby Notes Date Note Type Note Provider Name and Address Organization Details Recorded Time 01/28/2024 text/html 43-year-old fema le with severe [...] with laparoscopic hysterectomy and bilateral salpingectomy. Leno Herrera MD [address], [place], [address], [facility] 01/28/2024 16:01:22 OBGyn Episode No OBEpisode recorded.
--- OUTSIDE RECORDS SUMMARY | 2024-03-19 20:32 | XMS_ITS | Continuity of Care Document ---
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 Plan of Treatment Reminders Order Date Submit Date Provider Last Modified By Organization Details Last Modified Time Details Appointments SURG POST OP 025 09:45AM Aly HERRERA MD Not available Not available Not available Lab None record ed. Referral None record ed. Procedures None record ed. Surgeries None record ed. Imaging None record ed. Medication Orders None record ed. Patient TargetsNo targets recorded. Patient InstructionsNo instructions recorded. Reason for Referral None Reported. Results Created Date Observation Date Name Description Value Unit Range Abnormal Flag Note LastModifiedBy Organization Detail LastModifiedTime 03/14/1903/14/2024 CT, abdom en + pelvi s, w/ contr ast No observ ation record ed. [place] [address], [place], [address], 03/15/2024 13:10:35 Result Notes None recorded. Procedures Surgical History Date Name Laterality Status Provider Name and Address Organization Details Recorded Time 03/13/19 25 TOTAL HYSTERECTOMY, LAPAROSCOPIC, WITH BILATERAL SALPINGECTOMY (SURG) completed Amanda Jones [facility] 03/13/2024 12:47:27 03/13/19 25 TOTAL HYSTERECTOMY, LAPAROSCOPIC, WITH BILATERAL SALPINGECTOMY (SURG) completed Amanda Jones [facility] 03/13/2024 15:50:38 01/07/20 24 Date of Last Pap Smear completed Pilar Lizama [facility] 01/28/2024 11:49:11 02/10/20 23 Date of Last Mammogram completed [facility] 01/07/2024 11:22:07 01/11/20 23 cranioplasty completed [facility] 01/07/2024 11:28:11 10/21/19 23 craniotomy completed [facility] 01/07/2024 11:28:01 03/12/19 20 Date of Last Colonoscopy completed [facility] 01/07/2024 11:22:29 Caesarean Section completed [facility] 01/07/2024 11:27:40 Caesarean Section completed [facility] 01/07/2024 11:27:46 Imaging Results None recorded. Procedure Notes None recorded. 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 01/07/2024 13:02:23 Allergies Allergen ID Allergen Name Allergen Category Reaction Reaction Severity Criticality Documentation Date Start Date Code Code System Note Provider Name and Address Organization Details Recorded Time 73911 latex environme nt,medica tion Not available Not available Not available 01/07/2024 60287 91 RxNorm [facility] 11:18:03 61954 vancomyci n medicatio n Not available Not available Not available 01/07/2024 43936 RxNorm [facility] 11:18:08 Medications Name Sig Start Date [...] Available Not Available Not Available amoxicillin 875 mg-potdoreneu m clavulanate 125 mg tablet TAKE 1 [...] Updated DateTime 03/03/2024 162.56 cm 40.3 kg/m2 375689.2 1 g 110 mm[Hg] 68 mm[Hg] Pilar Lizama [facility] 15:32:57 Social History Question Answer Notes LastModified by Organizat ion Details LastModified Time Tobacco Smoking Status Never Smoker Jyoti Amador laure, [facility] 01/07/2024 11:25:46 Do You Have An Advance Directive? No Information n ot available 01/07/2024 What Is Your Level Of Alcohol Consumption? None [email or web address] Information not available 01/07/2024 Are You Blind Or Do You Have Difficulty Seeing? No Information n ot available 01/07/2024 In The 14 Days Before Symptom Onset, Have You Had Close Contact With A Laboratory-confirm ed COVID-19 While That Case Was Ill? No [email or web address] Information n ot available 01/07/2024 In The 14 Days Before Symptom Onset, Have You Had Close Contact With A Person Who Is Under Investigation For COVID-19 While That Person Was Ill? No [email or web address] Information not available 01/07/2024 Have You Been To An Area Known To Be High Risk For COVID-19? No [email or web address] Information not available 01/07/2024 Are You Currently Employed? No [email or web address] Information not available 01/07/2024 Are You Deaf Or Do You Have Serious Difficulty Hearing? No [email or web address] Information not available 01/07/2024 What Type Of Diet Are You Following? REGULAR [email or web address] Information n ot available 01/07/2024 What Is The Highest Grade Or Level Of School You Have Completed Or The Highest Degree You Have Received? FS25735-1 Information not available 01/07/2024 Are There Any Guns Present In Your Home? Yes [email or web address] Information not available 01/07/2024 Do You Use Your Seat Belt Or Car Seat Routinely? Yes [email or web address] Information not available 01/07/2024 Are You Sexually Active? Yes [email or web address] Information not available 01/07/2024 Do You Have Smoke And Carbon Monoxide Detectors In Your Home? Yes [email or web address] Information not available 01/07/2024 Do You Feel Stressed (tense, Restless, Nervous, Or Anxious, Or Unable To Sleep At Night)? [id number] [email or web address] Information not available 01/07/2024 Do You Use Sunscreen Routinely? Yes [email or web address] Information not available 01/07/2024 Sex: Unknown Functional Status Question Answer Note LastModified by Organization D etails LastModified Time Do you have difficulty walking or climbing stairs? Yes [email or web address] Information not available 01/07/2024 Are you able to care for yourself? No [email or web address] Information n ot available 01/07/2024 Do you have difficulty dressing or bathing? Yes [email or web address] Information not available 01/07/2024 Mental Status None recorded. Family History Relationship Description Onset Age of this Age Resolved Age Notes LastModified by Organization Details LastModified Time Maternal Aunt Malignant tumor of breast [email or web address] Not available 2023 11:25:34 Mother Heart disease [email or web address] Not available 2023 12:22:06 Mother Diabetes mellitus urtzmef69 Not available 2023 12:22:16 Mother Hypercholest erolemia ebcybao60 Not available 2023 12:23:01 Mother Disorder of thyroid gland [email or web address] Not available 2023 12:23:14 Maternal Grandfather Heart disease aorzdus31 Not available 2023 12:22:32 Maternal Grandmother Hypercholest erolemia pycduir65 Not available 2023 12:23:01 Father Hypercholest erolemia [email or web address] Not available 2023 12:23:01 Medical History Condition Response Anxiety Disorder Y Stroke Y Hypertension Y High Cholesterol Y Depression/ depression Y Gynecological History Statement/Question Response Abnormal Pap [...] SNOMED-CT Code Diagnosis ICD10 Code Diagnosis Note [id number] Leno Herrera MD [place] [address] [address] 03/03/2024 15:20:19 03/08/2024 03:51:31 Menorrhagia [id number] N92.0 43-year-ol d female with severe menorrhagi [...] Member ID Govea Member ID Guarantor Name 03/03/2024 1 [facility] [id number] Consuelo Mehnaz [id number] 2 Consuelo Darby Notes Date Note Type Note Provider Name and Address Organization Details Recorded Time 03/03/2024 text/html 43-year-old fema le with severe menorrhagia. Patient is here to discuss hysterectomy. It has not been scheduled yet. There is some misunderstanding about the urology aspect of the case. We will move forward with scheduling the surgery without the urology stent placement. We will do a robotically. Leno Herrera MD [address], [place], [address], [facility] 03/06/2024 22:19:55 OBGyn Episode No OBEpisode recorded.
--- OUTSIDE RECORDS SUMMARY | 2024-03-19 20:32 | XMS_ITS | Continuity of Care Document ---
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 Procedures None recorded. Surgeries None recorded. Imaging MAMMO, screening , digital, bilateral 2023 KULM Not available 01/14/2024 04:03:43 Medication Orders fluconazo le 150 mg tablet 2023 024 [email or web address] Not available 03/13/2024 10:20:58 Patient TargetsNo targets recorded. Patient InstructionsNo instructions recorded. Reason for Referral None Reported. Results Created Date Observation Date Name Description Value Unit Range Abnormal Flag Note LastModifiedBy Organization Detail LastModifiedTime 01/08/2001/08/2024 , lucina s No observ ation record ed. [facility] [address], [place], [address], 01/08/2024 14:31:52 01/08/20 24 01/08/2024 US, trans vagin al No observ ation record ed. [facility] [address], [place], [address], 01/08/2024 14:32:03 01/08/20 24 01/08/2024 US, pelvi s No observ ation record ed. [facility] [address], [place], [address], 01/08/2024 18:50:52 03/14/19 25 03/14/2024 CT, abdom en + pelvi s, w/ contr ast No observ ation record ed. [address], [place], [address], 03/15/2024 13:10:35 Result Notes None recorded. Procedures Surgical History Date Name Laterality Status Provider Name and Address Organization Details Recorded Time 03/13/19 25 TOTAL HYSTERECTOMY, LAPAROSCOPIC, WITH BILATERAL SALPINGECTOMY (SURG) completed [facility] 03/13/2024 12:47:27 03/13/19 25 TOTAL HYSTERECTOMY, LAPAROSCOPIC, WITH BILATERAL SALPINGECTOMY (SURG) completed [facility] 03/13/2024 15:50:38 01/07/20 24 Date of Last Pap Smear completed Pilar Lizama [facility] 01/28/2024 11:49:11 02/10/20 23 Date of Last Mammogram completed [facility] 01/07/2024 11:22:07 01/11/20 23 cranioplasty completed [facility] 01/07/2024 11:28:11 10/21/19 23 craniotomy completed [facility] 01/07/2024 11:28:01 03/12/19 20 Date of Last [facility]oscopy [facility] 01/07/2024 11:22:29 Caesarean Section completed Basilio jensen [facility] 01/07/2024 11:27:40 Caesarean Section completed Basilio jensen [facility] 01/07/2024 11:27:46 Imaging Results None recorded. Procedure Notes None recorded. 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 01/07/2024 13:02:23 Allergies Allergen ID Allergen Name Allergen Category Reaction Reaction Severity Criticality Documentation Date Start Date Code Code System Note Provider Name and Address Organization Details Recorded Time 18280 latex environme nt,medica tion Not available Not available Not available 01/07/2024 [address]0524 [address] [facility] 11:18:03 82429 vancomyci n medicatio n Not available Not available Not available 01/07/[address] [facility] 11:18:08 Medications Name Sig Start [...] Available Not Available No t Available Vitals None Recorded Social History Question Answer Notes LastModified by Organizat ion Details LastModified Time Tobacco Smoking Status Never Smoker Jyoti Amador [facility] 01/07/2024 11:25:46 Do You Have An Advance Directive? No Information n ot available 01/07/2024 What Is Your Level Of Alcohol Consumption? None [email or web address] Information not available 01/07/2024 Are You Blind Or Do You Have Difficulty Seeing? No [email or web address] Information n ot available 01/07/2024 In The 14 Days Before Symptom Onset, Have You Had Close Contact With A Laboratory-confirm ed COVID-19 While That Case Was Ill? No [email or web address] Information n ot available 01/07/2024 In The 14 Days Before Symptom Onset, Have You Had Close Contact With A Person Who Is Under Investigation For COVID-19 While That Person Was Ill? No Information not available 01/07/2024 Have You Been To An Area Known To Be High Risk For COVID-19? No [email or web address] Information not available 01/07/2024 Are You Currently Employed? No [email or web address] Information not available 01/07/2024 Are You Deaf Or Do You Have Serious Difficulty Hearing? No [email or web address] Information not available 01/07/2024 What Type Of Diet Are You Following? REGULAR Information n ot available 01/07/2024 What Is The Highest Grade Or Level Of School You Have Completed Or The Highest Degree You Have Received? QB87048-1 [email or web address] Information not available 01/07/2024 Are There Any Guns Present In Your Home? Yes [email or web address] Information not available 01/07/2024 Do You Use Your Seat Belt Or Car Seat Routinely? Yes [email or web address] Information not available 01/07/2024 Are You Sexually Active? Yes [email or web address] Information not available 01/07/2024 Do You Have Smoke And Carbon Monoxide Detectors In Your Home? Yes [email or web address] Information not available 01/07/2024 Do You Feel Stressed (tense, Restless, Nervous, Or Anxious, Or Unable To Sleep At Night)? [id number] [email or web address] Information not available 01/07/2024 Do You Use Sunscreen Routinely? Yes [email or web address] Information not available 01/07/2024 Sex: Unknown Functional Status Question Answer Note LastModified by Organization D etails LastModified Time Do you have difficulty walking or climbing stairs? Yes [email or web address] Information not available 01/07/2024 Are you able to care for yourself? No [email or web address] Information n ot available 01/07/2024 Do you have difficulty dressing or bathing? Yes [email or web address] Information not available 01/07/2024 Mental Status None recorded. Family History Relationship Description Onset Age of this Age Resolved Age Notes LastModified by Organization Details LastModified Time Maternal Aunt Malignant tumor of breast [email or web address] Not available 2023 11:25:34 Mother Heart disease [email or web address] Not available 2023 12:22:06 Mother Diabetes mellitus [email or web address] Not available 2023 12:22:16 Mother Hypercholest erolemia [email or web address] Not available 2023 12:23:01 Mother Disorder of thyroid gland [email or web address] Not available 2023 12:23:14 Maternal Grandfather Heart disease Not available 2023 12:22:32 Maternal Grandmother Hypercholest erolemia [email or web address] Not available 2023 12:23:01 Father Hypercholest erolemia [email or web address] Not available 2023 12:23:01 Medical History Condition [...] SNOMED-CT Code Diagnosis ICD10 Code Diagnosis Note [id number] WALT LIN NP [place] [address] [address] 01/07/2024 10:43:46 01/07/2024 14:34:19 Gynecologic examination [id number] Z01.419 Annual gynecologi anahy exam performed. Patient [...] - PCP STI testing - declined Menorrhagia [id number] N9 2.0 Today we discussed multiple options [...] further discuss surgical options. Screening mammography 24 [id number] Z12.31 Order given, pt to schedule. Vaginal discharge 278141 006 N89.8 Discussed empirical treatment with fluconazol e for suspected yeast infection based on reported symptoms and physical exam findings.D iscussed vulvar care guidelines in addition to laundry/sk in irritants to avoid. Health Concerns Section Related Observation LastModified by Organization Detai ls LastModified Time None Recorded Concern Status LastModified by Organization Details LastModified Time None Recorded Payers Encounter Date Sequence Insurance Name Policy Number Policy G[employer] Covered Member ID Govea Member ID Guarantor Name 01/07/2024 1 [facility] [id number] Consuelo Darby [id number] Consuelo Darby Notes Date Note Type Note Provider Name and Address Organization Details Recorded Time 01/07/2024 text/html Annual GYNReport ed bypatient.Urinary symptoms:No hematuria; No incontinence Vulva:No genital lesion Vagina:Normal vaginal discharge Breast:No breast pain; No breast lump; No nipple discharge Current Contraception:Condo ms Sexual complaints:No sexual complaints; No pain during [...] mg for anticoagulation, not on any other anticoagulants.Staci ent reports having difficulty moving left side of body, uses wheelchair. Patient is currently in PT/OT.Patient also c/o frequent yeast infections d/t heavy periods. Pt c/o itching and vaginal discharge. WALT LIN, MARLI [address], [place], [address], [place] [facility] 01/07/2024 13:44:50 OBGyn Episode No OBEpisode recorded.
--- OUTSIDE RECORDS SUMMARY | 2024-03-19 20:32 | XMS_ITS | Clinical Summary ---
Author Organization [facility] Address [address] [place] [address] Care Team Providers Care Parole Director Name Role Phone Jean Joy MD Unavailable [phone] Jaden Thakur DO Primary Care Provider + Source Comments [facility],non-owned Affiliates and Associated Physician Practices is amultiple site organization consisting of ambulatory clinics and hospital sitesin [place] and [place]. This disclosure is being madepursuant to the Care Everywhere program and may not contain all information available regarding this patient. 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 Alwaysverify current medications with the patient. Medication Sig Dispensed Refills Start Date End Date Status Cetirizine HCl (ZYRTEC PO) Take 10 mg by mouth once daily Active verapamil SR 24hr (Verelan) 120 MG capsule Take 1 (one) capsule by mouth at bedtime 10/17/2022 Active metoprolol tartrate IR (Lopressor) 25 MG tablet Take 1 (one) tablet by mouth 2 times daily 08/15/2022 Active hydrOXYzine HCl (Atarax) 25 MG tablet Take 1 (one) tablet by mouth at bedtime 12/14/2022 Active pantoprazole EC (Protonix) 40 MG tablet Take 1 (one) tablet by mouth once daily 12/15/2022 Active Cholecalciferol 25 MCG (1000 UT) Insert 2 (two) tablets into appropriate tube once daily 12/14/2022 Active cyclobenzaprine (Flexeril) 5 MG tablet 12/14/2022 Active DULoxetine (Cymbalta) 60 MG capsule 02/15/2023 Active levETIRAcetam (Keppra) 500 MG tablet TAKE 1 TABLET BY MOUTH TWICE DAILY 60 tablet 5 03/19/2023 Active aspirin (Aspirin) 81 MG chew tablet Take 1 (one) tablet by mouth once daily Active naloxone HCl (Narcan) 4 MG/0.1ML nasal spray SPRAY 1 SPRAY IN THE NOSTRIL NEEDED FOR OPIOID REVERSAL. 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 Anemia 11/12/2022 Hepatocellular injury 11/12/2022 Presence of externally remov able percutaneous endoscopic gastrostomy (PEG) tube 2022 Hemianopsia 10/19/2022 Weakness 10/19/2022 Left-sided sensory deficit present 10/19/2022 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 Acute cerebrovascular accide nt (CVA) due to embolism of right middle cerebral artery 10/19/2022 Nihss score 9 10/19/2022 Received intravenous tissue plasminogen activator (tPA) in emergency department 10/19/2022 Migraine 10/19/2022 Hypertension 10/19/2022 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 GERD (gastroesophageal reflux disease) Resolved Problems Problem Noted Date Diagnosed Date Resolved Date care, subsequent 09/07/2015 03/29/2016 Chest wall pain 07/08/2013 09/07/2015 Chest pain 07/08/2013 09/07/2015 Abdominal pain, generalized 02/28/2012 09/07/2015 Irregular bowel habits 02/28/201209/06 Screening for condition 12/27/200711/2008 Overview (12/10/2014): Adult Abstraction Problem List Screening Pap Smear: Result: Not avail in chart Date: 12/16/07 Immunizations Name Administration Dates Next Due Sj Ferrer primary monoval ent 12+ yr 0.3mL Purple cap 03/25/2020,03/03/2020 INFLUENZA VACCINE 12/10/2021, 1,12/15/2019, 019,12/11/2015,01/06/2013 TDAP (7yrs+) 12/21/2015 Family History Medical History Relation Name Comments Cancer - Breast Maternal Aunt Cancer Maternal Grandfather Lung Diabetes Maternal Grandfather Diabetes Maternal Grandmother Hypertension Mother Thyroid Disease Mother Relation Name Status Comments Maternal Aunt Maternal Grandfather Maternal Grandmother Mother Social History Tobacco Use Types Packs/Day Years Used Date Smoking Tobacco: Former Cigarettes Q uit: 2014 Smokeless Tobacco: Never Tobacco Cessation:Counseling Given: Not Answered Alcohol Use Standard Drinks/Week Comments No 0 (1 standard drink = 0.6 oz pur e alcohol) Occasional AUDIT-C Answer Date Recorded Q1: How often do you have a drink containing alcohol? Never 01/10/2023 Q2: How many drinks containi ng alcohol do you have on a typical day when you are drinking? Patient does not drink Frequency of Binge Drinking Not on file 03/2022 Overall Financial Resource Strain (CARDIA) Answe r Date Recorded How hard is it for you to pa y for the very basics like food, housing, medical care, and heating? Not hard at all 01/10/2023 PHQ-2 Answer Date Recorded Patient Health Questionnaire-2 Score 0 11/15/2022 [employer] [place] [facility] Occupat ional Health - Occupational Stress Questionnaire Answer Date Recorded Do you feel stress - tense, restless, nervous, or anxious, or unable to sleep at night because your mind is troubled all the time - these days? Only a little 01/10/2023 Hunger Vital Sign Answer Date Recorded Within the past 12 months, y ou worried that your food would run out before you got the money to buy more. Never true 01/11/20 23 Within the past 12 months, t he food you bought just didn't last and you didn't have money to get more. Never true 01/10/2023 PRAPARE - Transportation Answer Date Re corded In the past 12 months, has l ack of transportation kept you from medical appointments or from getting medications? No 03/2022 In the past 12 months, has l ack of transportation kept you from meetings, work, or from getting things needed for daily living? No 01/10/2023 Housing Stability Vital Sign Answer Helio e Recorded In the last 12 months, was t here a time when you were not able to pay the mortgage or rent on time? No 01/10/2023 In the last 12 months, how many places have you lived? 1 01/10/2023 In the last 12 months, was t here a time when you did not have a steady place to sleep or slept in a senior living (including now)? No 01/10/2023 Sex and Gender Information Value Date Recorded Sex Assigned at Not on file Gender Identity Not on file Sexual Orientation Not on file Last Filed Vital Signs Vital Sign Reading Time Taken Comments Blood Pressure 111/74 04/05/2023 1:00 PM JACK FRAME TENDER Pulse 72 04/05/2023 1:00 PM JACK FRAME TENDER Temperature 36.5 ??C (97.7 ??F) 04/05/2023 10:[address] Respiratory Rate 16 03/27/2023 1:35 PM JACK FRAME TENDER Oxygen Saturation 98% 04/05/2023 1:00 PM JACK FRAME TENDER Inhaled Oxygen Concentration 30% 10/24/2022 2 :00 PM CDT Weight 91.2 kg (201 lb) 04/30/2023 2:26 PM JACK FRAME TENDER Height 162.6 cm (5' 4 ) 04/05/2023 1:00 PM JACK FRAME TENDER Body Mass Index 34.5 04/05/2023 1:00 PM JACK FRAME TENDER Plan of Treatment Health Maintenance Due Date Last Done Comments COLOGUARD (AGES 45-75) - COLON CA SCREENING 1980 CT COLONOGRAPHY - COLON CA SCREENING 1980 FIT - COLON CA SCREENING 1980 FLEX SIG - COLON CA SCREENING 1980 HEPATITIS B VACCINE (1 of 3 - 19+ 3-dose series) 2001 COVID-19 VACCINE ( season) 2023 01/09/2022, 03/09/2021, 03/25/2020, Additional history exists INFLUENZA VACCINE (#1) 2023 , 12/10/2021, 12/13/2020, Additional history exists DEPRESSION SCREENING 03/12/2024 10/19/2022, 02/09/20 22 PAP SMEAR 02/08/2025 02/08/2022, 1103/2020, 01/09/2020, Additional history exists MAMMOGRAM 02/15/2025 02/15/2023, 02/15/2023 DTAP/TDAP/TD VACCINES (2 - Td or Tdap) 12/20/2025 12/21/2015 SCREENING FOR DIABETES 02/03/2026 , 01/11/2023, 12/21/2022, Additional history exists COLON MONITORING 08/25/2026 08/25/2021, , 08/25/2021, Additional history exists Colorectal Cancer Screening 08/25/2026 LIPID TESTING 10/21/2027 10/20/2022, 040 08/2022, 11/04/2009 COLONOSCOPY - COLON CA SCREENING 08/26/2031 08/25/2021, 08/25/2021, 08/25/2021, Additional history exists ZOSTER VACCINE (1 of 2) 2032 HEPATITIS C SCREENING Completed 11/02/2022, 023 HIV SCREENING Completed 11/02/2022, 10/10, 08/13/2015 HIB VACCINE Aged Out No longer eligi ble based on patient's age to complete this topic HPV VACCINE Aged Out No longer eligi ble based on patient's age to complete this topic MENINGOCOCCAL (Group B) VACCINE Aged Out No longer eligible based on patient's age to complete this topic MENINGOCOCCAL VACCINE Aged Out No shira hung eligible based on patient's age to complete this topic PNEUMOCOCCAL VACCINE Aged Out No long er eligible based on patient's age to complete this topic Medical Devices Implanted Type Area Airline Station Agent Device Identifier Shelf Expiration Date Model / Serial / Lot Syntthecel Dura Repair Implanted:Qty: 1 on 10/20/2022 by Jazz Martin MD at [facility] 05/10/2023 [id number] 0.01S / / [id number] Agent Hmst Thrmb Kt Surgiflo 2ml Implanted:Qty: 1 on 10/20/2022 by Jazz Martin MD at [facility] [employer] 10/11/2023 [id number] / / [id number] Seprafilm Adhesion Barrier Implanted:Qty: 1 on 10/20/2022 by Jazz Martin MD at [facility] 01/24/2025 [id number] / / [id number] Patch Cv 6x1cm Vsgrd Bvn Pricrd Strl Implanted:Qty: 1 on 10/30/2022 by Valdez Clay MD at [facility] Right: Arterial [employer] 04/28/2023 [id number] / / [id number] Description:IMPLANTED IN THE RIGHT FEMORAL ARTERY Plate 4 Hl Ult Lopro Chmfr Edg Crnl Implanted:Qty: 1 on 01/10/2023 by Jarvis Gagnon MD at [facility] Right: Cranial Synthes Usa 04502.06 3 / / Plate 4 Hl Ult Lopro Chmfr Edg Crnl 16 Implanted:Qty: 1 on 01/10/2023 by Jarvis Gagnon MD at [facility] Right: Cranial Synthes Usa 04502.07 3 / / Plate Contr Mesh Mlbl Mstd 45mmx.4mm Med Implanted:Qty: 1 on 01/10/2023 by Jarvis Gagnon MD at [facility] Right: Cranial Synthes Maxillofacial .09 7 / / Screw 1.5mm 4mm Crnmxf Slfdrl Implanted:Qty: 28 on 01/10/2023 by Jarvis Gagnon MD at [facility] Right: Cranial Synthes Maxillofacial . 4.01 / / Cover Bur Hl Rob 24mm Matrixneuro Crnl Implanted:Qty: 1 on 01/10/2023 by Jarvis Gagnon MD at [facility] Right: Cranial Synthes Maxillofacial . 4 / / Plate 5 Hl Adp Rgd Crnl .4mm Matrixneuro Implanted:Qty: 2 on 01/10/2023 by Jarvis Gagnon MD at [facility] Right: Cranial Synthes Usa .07 0 / / Explanted Type Area Airline Station Agent Device Identifier Shelf Expiration Date Model / Serial / Lot Screw 1.5mm 4mm Crnmxf Slfdrl Explanted:Qty: 1 on 01/10/2023 by Jarvis Gagnon MD at [facility] Right: Cranial Synthes Maxillofacial [id number] .01 / / Screw 1.55mm 2.65mm 4mm Crnmxf Er Explanted:Qty: 1 on 01/10/2023 by Jarvis Gagnon MD at [facility] Right: Cranial Synthes Maxillofacial 503.114 .01 / / Procedures Procedure Name Priority Date/Time Associated Diagnosis Comments MAMMO BILAT SCREENING W LOWELL Routine 02/15/2023 2:00 PM J[facility] FRAME TENDER Encounter for screening mammogram for breast cancer COMPREHENSIVE METABOLIC PANEL STAT 02/03/2023 5:48 PM JACK FRAME TENDER HEPATITIS C AB SCREEN RFLX NAAT QUANT STAT 11/02/2022 4:45 AM CDT EXPOSURE HIV STAT 11/02/2022 4:45 AM CDT LIPID PROFILE Routine 10/20/2022 3:02 AM CDT PAP IG RFLX HPV HR ASCUS RFLX 16/18/45 Routine 02/08/2022 4:10 PM JACK FRAME TENDER Pap smear, as part of routine gynecological examination ENDOSCOPY, COLON, SCREENING Routine 08/25/2021 9:58 AM CDT from Last 3 Months or Most Recently Relevant to Health Maintenance Results * MAMMO BILAT SCREENING W LOWELL (02/15/2023 2:00 PM JACK FRAME TENDER) Anatomical Region Laterality Modality Breast Bilateral Mammography 02/15/2023 2:00 PM J[facility] FRAME TENDER Impressions 02/15/2023 3:51 PM JACK FRAME TENDER : 1. No mammographic evidence of malignancy in either breast. 2. Dense breast parenchyma. RECOMMENDATION: 1.Screening mammography in one year, pending no interval breast concerns. 2.In addition, given her moderate increased risk of developing breast cancer, dense breast parenchyma, and limited mobility, consider complete breast ultrasound for supplemental screening. This can be performed at 6-month intervals in conjunction with screening mammography or at the time of screening mammography. For further information, please call [phone]. Patient will be notified of mammography results by lay letter. OVERALL ASSESSMENT: ??BI-RADS CATEGORY 1: NEGATIVE. > Dictated by Tim Major MD (chief radiology). I, Becky Oliveira DO have personally reviewed and interpreted this examination/study. > Interpreting Provider: Becky Oliveira DO on 02/15/2023 3:51 PM Narrative 02/15/2023 3:51 PM JACK FRAME TENDER EXAMINATIONS: ??BILATERAL DIGITAL SCREENING MAMMOGRAM AND BILATERAL BREAST TOMOSYNTHESIS WITH CAD LOCATION: [facility] EXAM DATE: ??02/15/2023 HISTORY: ??Baseline screening mammogram. History of breast cancer diagnosed in a maternal aunt at age 52. Of note, patient has a history of cerebrovascular accident/stroke. RISK ASSESSMENT CALCULATION: Patient completed a breast cancer risk assessment during her appointment. Based upon the information she provided and her mammographic breast density, her lifetime risk of developing breast cancer is 16 % (Average Risk <15%; Intermediate / Moderate Risk 15-19%; High Risk > 20%).Risk assessment based upon the Tyrer-Cuzick v8 model. Given her moderate increased risk of developing breast cancer and dense breast parenchyma, consider complete breast ultrasound for supplemental screening and this can be performed at 6-month intervals with screening mammography or the time of screening mammography. For further information, please call [phone]. COMPARISON: No prior. This is her baseline exam. ?? TECHNIQUE: Tomosynthesis (3D) and reconstructed synthetic 2-D images acquired and reviewed in the bilateral craniocaudal and mediolateral oblique projections. Bilateral exaggerated lateral craniocaudal views were also acquired. A total of 6 images obtained. ?? Computer-aided detection (CAD) was utilized. This exam was performed with the patient in a wheelchair. Best images were obtained. BREAST PARENCHYMAL COMPOSITION: Category C: The breasts are heterogeneously dense which may obscure small masses. FINDINGS: There are no suspicious findings or evidence of malignancy on mammography. There is no discrete mass, architectural distortion or suspicious calcifications. Jaden Thakur DO MAMMO ORDERABLES * (ABNORMAL) COMPREHENSIVE METABOLIC PANEL (02/03/2023 5:48 PM JACK FRAME TENDER) BUN 16 7 - 26 mg/dL 02/03/2023 6:39 PM [facility] Creatinine 0.77 0.56 - 0.96 mg/dL 02/03/2023 6:39 PM [facility] Sodium 141 136 - 145 mmol/L 02/03/2023 6:39 PM [facility] Potassium 4.4 3.5 - 4.5 mmol/L 02/03/2023 6:39 PM [facility] Comment:Hemolysis detected i n this specimen. Hemolysis may cause false elevations in potassium leading to pseudohyperkalemia or masked hypokalemia. Recommend repeat testing if clinically indicated. Chloride 109(H) 98 - 107 mmol/L 02/03/2023 6:39 PM [facility] CO2 21(L) 22 - 29 mmol/L 02/03/2023 6:39 PM [facility] Glucose 101 70 - 115 mg/dL 02/03/2023 6:39 PM [facility] Calcium 8.7 8.4 - 10.2 mg/dL 02/03/2023 6:39 PM [facility] Protein Total 7.1 6.0 - 8.3 g/dL 02/03/2023 6:39 PM [facility] Comment:Hemolysis detected i n this specimen. Hemolysis is known to cause elevations in this analyte. Caution should be exercised in the interpretation of this result. Recommend repeat testing if clinically indicated. Albumin 2.9(L) 3.4 - 5.0 g/dL 02/03/2023 6:39 PM [facility] Bilirubin Total 0.1(L) 0.2 - 1.2 mg/dL 02/03/2023 6:39 PM [facility] Alkaline Phosphatase 79 40 - 150 U/L 02/03/2023 6:39 PM [facility] ALT 23 5 - 55 U/L 02/03/2023 6:39 PM [facility] AST 24 5 - 34 U/L 02/03/2023 6:39 PM [facility] Comment:Hemolysis detected i n this specimen. Hemolysis is known to cause elevations in this analyte. Caution should be exercised in the interpretation of this result. Recommend repeat testing if clinically indicated. Anion Gap 11 6 - 16 02/03/2023 6:39 PM [facility] BUN/Creatinine Ratio 21 7 - 23 01/11 6:39 PM [facility] Osmolality Calculated 293 275 - 295 mOsm/kg 02/03/2023 6:39 PM [facility] Albumin/Globulin Ratio 0.7(L) 1.1 - 2.3 6:39 PM [facility] eGFR by CKD-EPI >90 >=90 mL/min/1. 73 m2 02/03/2023 6:39 PM [facility] Blood BLOOD SPECIMEN / Unknown Venipuncture / Unknown 02/03/2023 5:48 PM JACK FRAME TENDER 02/03/2023 5:58 PM [facility] Mary Leos PA-C LAB - CHEMISTRY OR DERABLES Performing Organization Address [facility]/State/ZIP Co de Phone Number [facility] [address] [place] [address], [facility] [phone] * HEPATITIS C AB SCREEN RFLX NAAT QUANT (11/02/2022 4:45 AM CDT) Hepatitis C Antibody Non-react tiffany Non-reac tive 11/02/2022 5:56 AM CDT [facility] Comment:Hepatitis C Antibody screen indicates no serologic evidence of past or current infection with Hepatitis C Virus. Patients with unexplained liver disease who are immunocompromised or suspected of having acute Hepatitis C infection may benefit from Nucleic Acid Test (GAYLA) for Hepatitis C Viral RNA to confirm Hepatitis C status. Blood BLOOD SPECIMEN / Unknown Venipuncture / Unknown 11/02/2022 4:45 AM CDT 11/02/2022 4:56 AM CDT Jim Walter MD LAB - CHEMISTRY ORD ERABLES Performing Organization Address City/[facility]/ZIP Co de Phone Number [facility] [address] [place] [address], [place] [phone] * EXPOSURE HIV (11/02/2022 4:45 AM CDT) HIV Antigen/Antibo dy 1 & 2 Non-reacti ve Non-reacti ve 11/02/2022 5:56 AM CDT [facility] Blood BLOOD SPECIMEN / Unknown Venipuncture / Unknown 11/02/2022 4:45 AM CDT 11/02/2022 4:56 AM CDT Jim Walter MD LAB - CHEMISTRY ORD ERABLES Performing Organization Address [facility] Co de Phone Number [address] [address], [facility] [phone] * (ABNORMAL) LIPID PROFILE (10/20/2022 3:02 AM CDT) Pathologist [facility] Cholesterol Total 173 <200 mg/dL 10/20/2022 3:34 AM CDT [facility] HDL 42 >40 mg/dL 10/20/2022 3:34 AM T [facility] Comment: ATP III Classification of HDL Cholesterol: ? <40 mg/dL: ??Considered a major risk factor. ? >60 mg/dL: ??Considered a negative risk factor. ? LDL Calculated 91 <100 mg/dL 10/20/2022 3:34 AM CDT [facility] Comment: ATP III Classification of LDL Cholesterol: ?<100 mg/dL: ??Optimal ? 100 - 129 mg/dL: ??Near Optimal/Above Optimal ? 130 - 159 mg/dL: ??Borderline High ? 160 - 189 mg/dL: ??High ?>190 mg/dL: ??Very High ? Triglycerides 201(H) <150 mg/dL 10/20/2022 3:34 AM CDT [facility] Comment: ATP III Classification of Triglycerides: ?<150 mg/dL: ??Normal ? 150 - 199 mg/dL: ??Borderline High ? 200 - 400 mg/dL: ??High ?>500 mg/dL: ??Very High Blood BLOOD SPECIMEN / Unknown Venipuncture / Unknown 10/20/2022 3:02 AM CDT 10/20/2022 3:09 AM CDT Jim Walter MD LAB - CHEMISTRY ORD ERABLES [facility] [address] [place] [address], [facility] [phone] * PAP IG RFLX HPV HR ASCUS RFLX 16/18/45 (02/08/2022 4:10 PM JACK FRAME TENDER) Diagnosis [facility] ACCOUNT BILL Comment:NEGATIVE FOR INTRAEP ITHELIAL LESION OR MALIGNANCY. Specimen Adequacy [facility] ACCOUNT BILL Comment:Satisfactory for anny luation. No endocervical component is identified. Clinician Provided ICD10 [facility] ACCOUNT BILL Comment:Z01.419 Performed by [facility] ACCOUNT BILL Comment:Hernandez Shay totechnologist (ASCP) Comment . [facility] ACCOUNT BILL Note [facility] ACCOUNT BILL Comment: The Pap smear is a screening test designed to aid in the detection of premalignant and malignant conditions of the uterine cervix. ??It is not a diagnostic procedure and should not be used as the sole means of detecting cervical cancer. ??Both false-positive and false-negative reports do occur. ? . IGLBP CPT Code Automation [facility] ACCOUNT BILL Comment: This liquid based ThinPrep(R) pap test was screened with the use of an image guided system. Note [facility] ACCOUNT BILL Comment: The HPV DNA reflex criteria were not met with this specimen result therefore, no HPV testing was performed. ? . Pathology/Cytolog y PART OF UTERINE CERVIX / Unknown 02/08/2022 4:10 PM JACK FRAME TENDER 02/09/2022 Narrative [facility] ACCOUNT BILL - 02/14/2022 5:08 PM JACK FRAME TENDER Source.............Cervix;Endocervix LMP / Prev Treat...UEP=[id number] No. of containers..01 ThinPrep Vial Resulting Agency Comment Lab Testing performed at: [facility] ??[place] [phone] Jean Joy MD LAB - PATHOLOGY/CYTO LOGY ORDERABLES [facility] ACCOUNT BILL [id number] [place] [address] * ENDOSCOPY, COLON, SCREENING (08/25/2021 9:58 AM CDT) Report Endoscopy POC _ Patient Name: Mehnaz , ??Consuelo Lu ?Procedure Date: 08/25/2021 9:58 AM ? Date of : 1980 ?Admit Type: Outpatient Age: 40 ? Room: ROOM 1 Gender: Female ?Attending MD: Sathya Foster MD _ Procedure: ? Colonoscopy Indications: ? High risk colon cancer surveillance: Personal history ? of colonic polyps, Last colonoscopy: 2012 Providers: ? Sathya Foster MD, Tia Rico RN, Zeinab ? Salas, AMBROSE, Aminata Cain CRNA (Anesthesia Staff) Medicines: ? Propofol per Anesthesia Complications: ? No immediate complications. _ Estimated Blood Loss: ? Estimated blood loss: none. Procedure: ? Pre-Anesthesia Assessment: ? - Prior to the procedure, a History and Physical was ? performed, and patient medications and allergies were ? reviewed. The patient's tolerance of previous ? anesthesia was also reviewed. The risks and benefits ? of the procedure and the sedation options and risks ? were discussed with the patient. All questions were ? answered, and informed consent was obtained. Prior ? Anticoagulants: The patient has taken no previous ? anticoagulant or antiplatelet agents. ASA Grade ? Assessment: II - A patient with mild systemic disease. ? After reviewing the risks and benefits, the patient ? was deemed in satisfactory condition to undergo the ? procedure. ? After I obtained informed consent, the scope was ? passed under direct vision. Throughout the procedure, ? the patient's blood pressure, pulse, and oxygen ? saturations were monitored continuously. The ? Colonoscope was introduced through the anus and ? advanced to the terminal ileum. The terminal ileum, ? the appendiceal orifice and the rectum were ? photographed. The quality of the bowel preparation was ? good. ? Findings: ? The terminal ileum appeared normal. ? A few sessile polyps were found in the sigmoid colon. The polyps were ? small in size. These polyps were removed with a cold biopsy forceps. ? Resection and retrieval were complete. ? A few small-mouthed diverticula were found in the sigmoid colon. ? The exam was otherwise without abnormality. _ ? Impression: ?- The examined portion of the ileum was normal. ? - A few small polyps in the sigmoid colon, removed ? with a cold biopsy forceps. Resected and retrieved. ? - Diverticulosis in the sigmoid colon. ? - The examination was otherwise normal. Recommendation: ?- High fiber diet. ? - Continue present medications. ? - If the pathology report reveals adenomatous tissue, ? then repeat the colonoscopy for surveillance in 5 ? years. ? - Patient has a contact number available for ? emergencies. The signs and symptoms of potential ? delayed complications were discussed with the patient. ? Return to normal activities tomorrow. Written ? discharge instructions were provided to the patient. ? Procedure Code(s): ? --- Professional --- ? 20999, Colonoscopy, flexible; with biopsy, single or multiple ? --- Technical --- ? 96524, Colonoscopy, flexible; with biopsy, single or multiple Diagnosis Code(s): ? --- Professional --- ? Z86.010, Personal history of colonic polyps ? K63.5, Polyp of colon ? K57.30, Diverticulosis of large intestine without perforation or abscess ? without bleeding ? --- Technical --- ? Z86.010, Personal history of colonic polyps ? K63.5, Polyp of colon ? K57.30, Diverticulosis of large intestine without perforation or abscess ? without bleeding CPT copyright 2019 [employer]. All rights reserved. The codes documented in this report are preliminary and upon beck tender review may be revised to meet current compliance requirements. ___ Sathya Foster MD 08/25/2021 10:19:15 AM This report has been signed electronically. Number of Addenda: 0 Note Initiated On: 08/25/2021 9:58 AM [facility] 08/25/2021 9:58 AM CDT Sathya Foster MD GI PROCEDURE ORDERAB LES Performing Organization Address City/State/[facility] Co de Phone Number [facility] from Last 3 Months or Most Recently Relevant to Health Maintenance Advance Directives * Full Code (Latest Code Status on File) Date Activated Date Inactivated Comments 01/10/2023 2:43 PM 01/11/2023 5:32 PM * Full Code Date Activated Date Inactivated Comments 11/17/2022 6:06 PM 12/14/2022 10:01 AM * Full Code Date Activated Date Inactivated Comments 10/19/2022 9:02 AM 11/17/2022 4:26 PM * Full Code Date Activated Date Inactivated Comments 03/01/2016 7:45 AM 03/04/2016 12:39 PM Care Teams Parole Director Relationship Specialty Start Date End Date Jean Joy MD PCP - OBGYN 12/27/07 Jaden Thakur DO [address] [place] [id number] PCP - General Family Medicine Geriatric Medicine 01/05/23
--- OUTSIDE RECORDS SUMMARY | 2024-03-19 20:32 | XMS_ITS | Continuity of Care Document ---
Author Organization [facility] [place] Address [address] [place] [address] Care Team Providers Care Petrographer Name Role Phone ROMY PENA Primary Care Provider Assessment No assessment recorded. Plan of Treatment Reminders Order Date Submit Date Provider Last Modified By Organization Details Last Modified Time Details Appointments SURG POST OP 2024 09:45A Keysha HERRERA MD Not available Not available Not available Lab None recorded. Referral None recorded. Procedures None recorded. Surgeries None recorded. Imaging US, pelvis [address], [address], [place], [address], 01/08/2024 14:44:16 US, transvagi nal [address], [address], [place], [address], 01/08/2024 14:44:16 Medication Orders None recorded. Patient TargetsNo targets recorded. Patient InstructionsNo instructions recorded. Reason for Referral None Reported. Results Created Date Observation Date Name Description Value Unit Range Abnormal Flag Note LastModifiedBy Organization Detail LastModifiedTime 01/08/2001/08/2024 , lucina martino No observ ation record ed. [facility] [address], [place], [address], 01/08/2024 14:31:52 01/08/2001/08/2024 US, trans vagin al No observ ation record ed. [facility] [address], [place], [address], 01/08/2024 14:32:03 01/08/20 24 01/08/2024 US, pelvi s No observ ation record ed. [facility] [address], [place], [address], 01/08/2024 18:50:52 03/14/19 25 03/14/2024 CT, abdom en + pelvi s, w/ contr ast No observ ation record ed. [address], [place], [address], 03/15/2024 13:10:35 Result Notes None recorded. Procedures Surgical History Date Name Laterality Status Provider Name and Address Organization Details Recorded Time 03/13/19 25 TOTAL HYSTERECTOMY, LAPAROSCOPIC, WITH BILATERAL SALPINGECTOMY (SURG) completed [facility] 03/13/2024 12:47:27 03/13/19 25 TOTAL HYSTERECTOMY, LAPAROSCOPIC, WITH BILATERAL SALPINGECTOMY (SURG) completed [facility] 03/13/2024 15:50:38 01/07/20 24 Date of Last Pap Smear completed Pilar Lizama [facility] 01/28/2024 11:49:11 02/10/20 23 Date of Last Mammogram completed [facility] 01/07/2024 11:22:07 01/11/20 23 cranioplasty completed [facility] 01/07/2024 11:28:11 10/21/19 23 craniotomy completed [facility] 01/07/2024 11:28:01 03/12/19 20 Date of Last Colonoscopy completed [facility] 01/07/2024 11:22:29 Caesarean Section completed Basilio Kimton [facility] 01/07/2024 11:27:40 Caesarean Section completed Basilio jensen Marjorie [facility] 01/07/2024 11:27:46 Imaging Results Imaging Date Name Status LastModified by Organization Details LastModified Time 01/08/2024 US, pelvis completed jorge Anand [address], [place], [address], 01/08/2024 14:31:52 01/08/2024 US, transvaginal completed jorge hong [address], [place], [address], 01/08/2024 14:32:03 01/08/2024 US, pelvis completed [email or web address] [address], [facility], [address], 01/08/2024 18:50:52 Procedure Notes None recorded. Medical Equipment Implant VERONIKA Issuing Agency Serial Number Lot Number Status Provider Name and Address Organization Details Recorded Time Loop recorder FDA Y WALT LIN NP [address], [place], [address], [place] [facility] 01/07/2024 13:02:23 Allergies Allergen ID Allergen Name Allergen Category Reaction Reaction Severity Criticality Documentation Date Start Date Code Code System Note Provider Name and Address Organization Details Recorded Time 30732 latex environme nt,medica tion Not available Not available Not available 01/07/2024 52288 91 [facility]Norm [facility] 11:18:03 58840 vancomyci n medicatio n Not available Not available Not available 01/07/2024 20803 RxNorm Jyoti Amador [facility] 11:18:08 Medications Name Sig [...] Tobacco Smoking Status Never Smoker Jyoti Amador [facility], [facility] 01/07/2024 11:25:46 Do You Have An Advance Directive? No [email or web address] Information n ot available 01/07/2024 What Is Your Level Of Alcohol Consumption? None [email or web address] Information not available 01/07/2024 Are You Blind Or Do You Have Difficulty Seeing? No Information n ot available 01/07/2024 In The 14 Days Before Symptom Onset, Have You Had Close Contact With A Laboratory-confirm ed COVID-19 While That Case Was Ill? No Information n ot available 01/07/2024 In The 14 Days Before Symptom Onset, Have You Had Close Contact With A Person Who Is Under Investigation For COVID-19 While That Person Was Ill? No [email or web address] Information not available 01/07/2024 Have You Been To An Area Known To Be High Risk For COVID-19? No [email or web address] Information not available 01/07/2024 Are You Currently Employed? No Information not available 01/07/2024 Are You Deaf Or Do You Have Serious Difficulty Hearing? No [email or web address] Information not available 01/07/2024 What Type Of Diet Are You Following? REGULAR [email or web address] Information n ot available 01/07/2024 What Is The Highest Grade Or Level Of School You Have Completed Or The Highest Degree You Have Received? [id number] [email or web address] Information not available 01/07/2024 Are There Any Guns Present In Your Home? Yes [email or web address] Information not available 01/07/2024 Do You Use Your Seat Belt Or Car Seat Routinely? Yes [email or web address] Information not available 01/07/2024 Are You Sexually Active? Yes [email or web address] Information not available 01/07/2024 Do You Have Smoke And Carbon Monoxide Detectors In Your Home? Yes [email or web address] Information not available 01/07/2024 Do You Feel Stressed (tense, Restless, Nervous, Or Anxious, Or Unable To Sleep At Night)? [id number] qefnubf70 Information not available 01/07/2024 Do You Use Sunscreen Routinely? Yes [email or web address] Information not available 01/07/2024 Sex: Unknown Functional Status Question Answer Note LastModified by Organization D etails LastModified Time Do you have difficulty walking or climbing stairs? Yes [email or web address] Information not available 01/07/2024 Are you able to care for yourself? No Information n ot available 01/07/2024 Do you have difficulty dressing or bathing? Yes [email or web address] Information not available 01/07/2024 Mental Status None recorded. Family History Relationship Description Onset Age of this Age Resolved Age Notes LastModified by Organization Details LastModified Time Maternal Aunt Malignant tumor of breast [email or web address] Not available 2023 11:25:34 Mother Heart disease [email or web address] Not available 2023 12:22:06 Mother Diabetes mellitus [email or web address] Not available 2023 12:22:16 Mother Hypercholest erolemia [email or web address] Not available 2023 12:23:01 Mother Disorder of thyroid gland [email or web address] Not available 2023 12:23:14 Maternal Grandfather Heart disease [email or web address] Not available 2023 12:22:32 Maternal Grandmother Hypercholest erolemia Not available 2023 12:23:01 Father Hypercholest erolemia uvrhqqp17 Not available 2023 12:23:01 Medical History Condition [...] SNOMED-CT Code Diagnosis ICD10 Code Diagnosis Note [id number] MARLI THOMPSON [address] [address] 01/07/2024 10:43:46 01/07/2024 14:34:19 Gynecologic examination [id number] Z01.419 Annual gynecologi anahy exam performed. Patient [...] - PCP STI testing - declined Menorrhagia [id number] N9 2.0 Today we discussed multiple options [...] further discuss surgical options. Screening mammography 24 853911 Z12.31 Order given, pt to schedule. Vaginal discharge 056932 006 N89.8 Discussed empirical treatment with fluconazol e for suspected yeast infection based on reported symptoms and physical exam findings.D iscussed vulvar care guidelines in addition to laundry/sk in irritants to avoid. [id number] Elida Luna [place] [address] [address] 01/08/2024 13:45:55 01/08/2024 14:27:51 Menorrhagia [id number] N92.0 Health Concerns Section Related Observation LastModified by Organization Detai ls LastModified Time None Recorded Concern Status LastModified by Organization Details LastModified Time None Recorded Payers Encounter Date Sequence Insurance Name Policy Number Policy Govea Covered Member ID Govea Member ID Guarantor Name 01/08/2024 1 [facility] [id number] Consuelo Darby [id number] Consuelo Darby OBSchuyler Episode No OBEpisode recorded.
--- OUTSIDE RECORDS SUMMARY | 2024-03-19 20:32 | XMS_ITS | Referral Summary ---
Author Organization [facility] Address [address] [address] Care Team Providers Care Professor Of Art History Name Role Phone Jean Joy MD Unavailable [phone] Jaden Thakur DO Primary Care Provider + Source Comments [facility],non-owned Affiliates and Associated Physician Practices is amultiple site organization consisting of ambulatory clinics and hospital sitesin [place], [place], [place] and [place]. This disclosure is being madepursuant to the Care Everywhere program and may not contain all information available regarding this patient. Last updated 17.[facility] Allergies Active Allergy Reactions Criticality Noted [...] MEDICAL ASSISTANCE ARRIVES 03/21/2023 Active HYDROcodone-acetami nophen ([place]) 10-325 MG tablet TAKE 1/2 TO 1 [...] VACCINE 12/10/2021, 1,12/15/2019, 019,12/11/2015,01/06/2013 TDAP (7yrs+) 12/21/2015 Social History Tobacco Use Types Packs/Day Years [...] you are drinking? Patient does not drink 3 Frequency of Binge Drinking Not on file 03/2022 Overall Financial Resource Strain (CARDIA) Answe r Date Recorded How hard is it for you to pa y for the very basics like food, housing, medical care, and heating? Not hard at all 01/10/2023 PHQ-2 Answer Date Recorded Patient Health Questionnaire-2 Score 0 11/15/2022 [facility] - Occupational Stress [...] place to sleep or slept in a custodial (including now)? No 01/10/2023 Sex and Gender Information Value Date Recorded Sex Assigned at Not on file Gender Identity Not on file Sexual Orientation Not on file Last Filed Vital Signs Vital Sign Reading Time Taken Comments Blood Pressure 111/74 04/05/2023 1:00 PM [facility] Pulse 72 04/05/2023 1:00 PM [facility] Temperature 36.5 ??C (97.7 ??F) 04/05/2023 10:[address] Respiratory Rate 16 03/27/2023 1:35 PM [facility] CADDIE Oxygen Saturation 98% 04/05/2023 1:00 PM [facility] Inhaled Oxygen Concentration 30% 10/24/2022 2 :00 PM CDT Weight 91.2 kg (201 lb) 04/30/2023 2:26 PM [facility] Height 162.6 cm (5' 4 ) 04/05/2023 1:00 PM [facility] Body Mass Index 34.5 04/05/2023 1:00 PM [facility] Functional Status Functional Status Response Date of Assess ment Is person deaf or have serious hearing difficult y? No 01/10/2023 Is person blind or have serious difficulty seein g? No 01/10/2023 Does person have serious dif ficulty walking/climbing stairs? Yes 01/10/2023 Does person have difficulty dressing/bathing? Ye s 01/10/2023 Does person have difficulty doing errands alone? Yes 01/10/2023 Cognitive Status Response Date of Assessm ent Does person have difficulty concentrating/remembering/making decisions? No 01/10/2023 Plan of Treatment Not on file Medical Devices Implanted Type Area Ornamental Ironworker Helper Device Identifier Shelf Expiration Date Model / Serial / Lot Syntthecel Dura Repair Implanted:Qty: 1 on 10/20/2022 by Jazz Martin MD at [facility] 05/10/2023 SC.400.28 0.01S / / [id number] Agent Hmst Thrmb Kt Surgiflo 2ml Implanted:Qty: 1 on 10/20/2022 by Jazz Martin MD at [facility] [employer] 10/11/2023 [id number] / / [id number] Seprafilm Adhesion Barrier Implanted:Qty: 1 on 10/20/2022 by Jazz Martin MD at [facility] 01/24/2025 5086-02 / / [id number] Patch Cv 6x1cm Vsgrd Bvn Pricrd Strl Implanted:Qty: 1 on 10/30/2022 by Valdez Clay MD at [facility] Right: Arterial [employer] 04/28/2023 [id number] / / [id number] Description:IMPLANTED IN THE RIGHT FEMORAL ARTERY Plate 4 Hl Ult Lopro Chmfr Edg Crnl Implanted:Qty: 1 on 01/10/2023 by Jarvis Gagnon MD at [facility] Right: Cranial Synthes Usa 04502.06 3 / / Plate 4 Hl Ult Lopro Chmfr Edg Crnl 16 Implanted:Qty: 1 on 01/10/2023 by Jarvis Gagnon MD at [facility] Right: Cranial Synthes Usa 04502.07 3 / / Plate Contr Mesh Mlbl Mstd 45mmx.4mm Med Implanted:Qty: 1 on 01/10/2023 by Jarvis Gagnon MD at [facility] Right: Cranial Synthes Maxillofacial 503.09 7 / / Screw 1.5mm 4mm Crnmxf Slfdrl Implanted:Qty: 28 on 01/10/2023 by Jarvis Gagnon MD at [facility] Right: Cranial Synthes Maxillofacial 503.10 4.01 / / Cover Bur Hl Rob 24mm Matrixneuro Crnl Implanted:Qty: 1 on 01/10/2023 by Jarvis Gagnon MD at [facility] Right: Cranial Synthes Maxillofacial 503.02 4 / / Plate 5 Hl Adp Rgd Crnl .4mm Matrixneuro Implanted:Qty: 2 on 01/10/2023 by Jarvis Gagnon MD at [facility] Right: Cranial Synthes [facility] 503.07 0 / / Explanted Type Area Ornamental Ironworker Helper Device Identifier Shelf Expiration Date Model / Serial / Lot Screw 1.5mm 4mm Crnmxf Slfdrl Explanted:Qty: 1 on 01/10/2023 by Jarvis Gagnon MD at [facility] Right: Cranial Synthes Maxillofacial 503.104 .01 / / Screw 1.55mm 2.65mm 4mm Crnmxf Er Explanted:Qty: 1 on 01/10/2023 by Jarvis Gagnon MD at [facility] Right: Cranial Synthes Maxillofacial 503.114 .01 / / Procedures Procedure Name Priority Date/Time Associated Diagnosis Comments MAMMO BILAT SCREENING W LOWELL Routine 02/15/2023 2:00 PM [facility] Encounter for screening mammogram for breast cancer COMPREHENSIVE METABOLIC PANEL STAT 02/03/2023 5:48 PM [facility] HEPATITIS C AB SCREEN RFLX NAAT QUANT STAT 11/02/2022 4:45 AM CDT EXPOSURE HIV STAT 11/02/2022 4:45 AM CDT LIPID PROFILE Routine 10/20/2022 3:02 AM CDT PAP IG RFLX HPV HR ASCUS RFLX 16/18/45 Routine 02/08/2022 4:10 PM [facility] Pap smear, as part of routine gynecological examination ENDOSCOPY, COLON, SCREENING Routine 08/25/2021 9:58 AM CDT from Last 3 Months or Most Recently Relevant to Health Maintenance Results * MAMMO BILAT SCREENING W LOWELL (02/15/2023 2:00 PM [facility]ADD[facility]) Anatomical Region Laterality Modality Breast Bilateral Mammography 02/15/2023 2:00 PM [facility] Impressions 02/15/2023 3:51 PM [facility]ADD[facility] : 1. No mammographic evidence of malignancy [...] screening mammography. For further information, please call [phone]. Patient will be notified of mammography results by lay letter. OVERALL ASSESSMENT: ??BI-RADS CATEGORY 1: NEGATIVE. > Dictated by Tim Major MD (radiology director). I, Becky Oliveira DO have personally reviewed and interpreted this examination/study. > Interpreting Provider: Becky Oliveira DO on 02/15/2023 3:51 PM Narrative 02/15/2023 3:51 PM [facility] EXAMINATIONS: ??BILATERAL DIGITAL SCREENING MAMMOGRAM AND BILATERAL BREAST TOMOSYNTHESIS WITH CAD LOCATION: [facility] EXAM DATE: ??02/15/2023 HISTORY: ??Baseline screening mammogram. [...] screening mammography. For further information, please call [phone]. COMPARISON: No prior. This is her baseline [...] mass, architectural distortion or suspicious calcifications. Jaden Joe Thakur DO MAMMO ORDERABLES * (ABNORMAL) COMPREHENSIVE METABOLIC PANEL (02/03/2023 5:48 PM [facility]) BUN 16 7 - 26 mg/dL 02/03/2023 6:39 PM [facility] Creatinine 0.77 0.56 - 0.96 mg/dL 02/03/2023 6:39 PM [facility] Sodium 141 136 - 145 mmol/L 02/03/2023 6:39 PM [facility] Potassium 4.4 3.5 - 4.5 mmol/L 02/03/2023 6:39 PM [facility] Comment:Hemolysis detected i n this specimen. Hemolysis may cause false elevations in potassium leading to pseudohyperkalemia or masked hypokalemia. Recommend repeat testing if clinically indicated. Chloride 109(H) 98 - 107 mmol/L 02/03/2023 6:39 PM [facility] CO2 21(L) 22 - 29 mmol/L 02/03/2023 6:39 PM [facility] Glucose 101 70 - 115 mg/dL 02/03/2023 6:39 PM [facility] Calcium 8.7 8.4 - 10.2 mg/dL 02/03/2023 6:39 PM [facility] Protein Total 7.1 6.0 - 8.3 g/dL 02/03/2023 6:39 PM [facility] Comment:Hemolysis detected i n this specimen. Hemolysis is known to cause elevations in this analyte. Caution should be exercised in the interpretation of this result. Recommend repeat testing if clinically indicated. Albumin 2.9(L) 3.4 - 5.0 g/dL 02/03/2023 6:39 PM [facility] Bilirubin Total 0.1(L) 0.2 - 1.2 mg/dL 02/03/2023 6:39 PM [facility] Alkaline Phosphatase 79 40 - 150 U/L 02/03/2023 6:39 PM [facility] ALT 23 5 - 55 U/L 02/03/2023 6:39 PM [facility] AST 24 5 - 34 U/L 02/03/2023 6:39 PM [facility] Comment:Hemolysis detected i n this specimen. Hemolysis is known to cause elevations in this analyte. Caution should be exercised in the interpretation of this result. Recommend repeat testing if clinically indicated. Anion Gap 11 - 16 02/03/2023 6:39 PM [facility] BUN/Creatinine Ratio 21 7 - 23 01/11 6:39 PM [facility] Osmolality Calculated 293 275 - 295 mOsm/kg 02/03/2023 6:39 PM [facility] Albumin/Globulin Ratio 0.7(L) 1.1 - 2.3 6:39 PM [facility] eGFR by CKD-EPI >90 >=90 mL/min/1. 73 m2 02/03/2023 6:39 PM [facility] Blood BLOOD SPECIMEN / Unknown Venipuncture / Unknown 02/03/2023 5:48 PM [facility] 02/03/2023 5:58 PM [facility] Mary Leos PA-C LAB - CHEMISTRY OR DERABLES Performing Organization Address City/State/[facility] Co de Phone Number [facility] [address] [place] [phone], [facility] [phone] * HEPATITIS C AB SCREEN RFLX NAAT QUANT (11/02/2022 4:45 AM CDT) Hepatitis C Antibody Non-react tiffany Non-reac tive 11/02/2022 5:56 AM CDT [facility] Comment:Hepatitis C Antibody screen indicates no [...] - CHEMISTRY ORD ERABLES Performing Organization Address City/[facility]/ZIP Co de Phone Number [facility] [address] [place] [phone], [facility] [phone] * EXPOSURE HIV (11/02/2022 4:45 AM CDT) [facility] HIV Antigen/Antibo dy 1 & 2 Non-reacti ve Non-reacti ve 11/02/2022 5:56 AM CDT [facility] Blood BLOOD SPECIMEN / Unknown Venipuncture / Unknown 11/02/2022 4:45 AM CDT 11/02/2022 4:56 AM CDT Jim Walter MD LAB - CHEMISTRY ORD ERABLES Performing Organization Address City/[facility]/ZIP Co de Phone Number [address] [address], [facility] [phone] * (ABNORMAL) LIPID PROFILE (10/20/2022 3:02 AM CDT) [facility] Cholesterol Total 173 <200 mg/dL 10/20/2022 3:34 AM CDT [facility] HDL 42 >40 mg/dL 10/20/2022 3:34 AM T [facility] Comment: ATP III Classification of HDL Cholesterol: ? <40 mg/dL: ??Considered a major risk factor. ? >60 mg/dL: ??Considered a negative risk factor. ? LDL Calculated 91 <100 mg/dL 10/20/2022 3:34 AM CDT [facility] Comment: ATP III Classification of LDL Cholesterol: ?<100 mg/dL: ??Optimal ? 100 - 129 mg/dL: ??Near Optimal/Above Optimal ? 130 - 159 mg/dL: ??Borderline High ? 160 - 189 mg/dL: ??High ?>190 mg/dL: ??Very High ? Triglycerides 201(H) <150 mg/dL 10/20/2022 3:34 AM CDT [facility] Comment: ATP III Classification of Triglycerides: ?<150 mg/dL: ??Normal ? 150 - 199 mg/dL: ??Borderline High ? 200 - 400 mg/dL: ??High ?>500 mg/dL: ??Very High Blood BLOOD SPECIMEN / Unknown Venipuncture / Unknown 10/20/2022 3:02 AM CDT 10/20/2022 3:09 AM CDT Jim Walter MD LAB - CHEMISTRY ORD ERABLES Performing Organization Address City/State/[facility] Co de Phone Number [facility] [address] [place] [phone], [facility] [phone] * PAP IG RFLX HPV HR ASCUS RFLX 16/18/45 (02/08/2022 4:10 PM [facility] CADDIE) Diagnosis [facility] ACCOUNT BILL Comment:NEGATIVE FOR INTRAEP [...] UTERINE CERVIX / Unknown 02/08/2022 4:10 PM [facility] 02/09/2022 Narrative [facility] ACCOUNT BILL - 02/14/2022 5:08 PM [facility] CADD[facility] Source.............Cervix;Endocervix LMP / Prev Treat...VFK=[id number] No. of containers..01 ThinPrep Vial Resulting Agency Comment Lab Testing performed at: [address] ??[facility] [phone] Jean Joy MD LAB - PATHOLOGY/CYTO LOGY ORDERABLES [facility] ACCOUNT BILL [id number] [place] [address] * ENDOSCOPY, COLON, SCREENING (08/25/2021 9:58 AM [...] Foster MD, Tia Rico RN, Zeinab ? AMBROSE Marina, Aminata Cain CRNA (Anesthesia Staff) Medicines: ? [...] Procedure Code(s): ? --- Professional --- ? 97714, Colonoscopy, flexible; with biopsy, single or multiple ? --- Technical --- ? 81525, Colonoscopy, flexible; with biopsy, single or multiple [...] abscess ? without bleeding CPT copyright 2019 [employer]. All rights reserved. The codes documented in this report are preliminary and upon planning analyst review may be revised to meet current compliance requirements. ___ Sathya Foster MD 08/25/2021 10:19:15 AM This report has been signed electronically. Number of Addenda: 0 Note Initiated On: 08/25/2021 9:58 AM [facility] 08/25/2021 9:58 AM CDT Sathya Foster MD GI PROCEDURE ORDERAB LES Performing Organization Address City/State/[facility] Co de Phone Number [facility] ENDOS[facility] from Last 3 Months or Most Recently Relevant to Health Maintenance Administered Medications Advance Directives * Full Code (Latest Code [...] 7:45 AM 03/04/2016 12:39 PM Care Teams Professor Of Art History Relationship Specialty Start Date End Date Jean Joy MD PCP - OBGYN 12/27/07 Jaden Thakur DO [address] [place] [id number] PCP - General Family Medicine Geriatric Medicine 01/05/23
--- OUTSIDE RECORDS SUMMARY | 2024-03-19 20:33 | XMS_ITS | Patient Health Summary ---
Author Organization [facility] Address [address] [place] [address] Care Team Providers Care Applications Trainer Name Role Phone Jean Joy MD Unavailable Jaden Thakur DO Primary Care Provider + Note from [facility],non-owned Affiliates and Associated Physician Practices is amultiple site organization consisting of ambulatory clinics and hospital sitesin [place], [place], [place] and [place]. This disclosure is being madepursuant to the Care Everywhere program and may not contain all information available regarding this patient. Last updated 17.[facility] Allergies * Latex(Rash) -Low Criticality * Vancomycin(Fever) Medications * Be aware that medications may not be up to date on this document. Alwaysverify current medications with the patient. * Cetirizine HCl (ZYRTEC PO) Take 10 mg by mouth once daily * verapamil SR 24hr (Verelan) 120 MG capsule(Started 10/17/2022) Take 1 (one) capsule by mouth at bedtime * metoprolol tartrate IR (Lopressor) 25 MG tablet(Started 08/15/2022) Take 1 (one) tablet by mouth 2 times daily * hydrOXYzine HCl (Atarax) 25 MG tablet(Started 12/14/2022) Take 1 (one) tablet by mouth at bedtime * pantoprazole EC (Protonix) 40 MG tablet(Started 12/15/2022) Take 1 (one) tablet by mouth once daily * Cholecalciferol 25 MCG (1000 UT)(Started 12/14/2022) Insert 2 (two) tablets into appropriate tube once daily * cyclobenzaprine (Flexeril) 5 MG tablet(Started 12/14/2022) * DULoxetine (Cymbalta) 60 MG capsule(Started 02/15/2023) * levETIRAcetam (Keppra) 500 MG tablet(Started 03/19/2023) TAKE 1 TABLET BY MOUTH TWICE DAILY 5 refills by 03/18/2024 * aspirin (Aspirin) 81 MG chew tablet Take 1 (one) tablet by mouth once daily * naloxone HCl (Narcan) 4 MG/0.1ML nasal spray(Started 03/21/2023) SPRAY 1 SPRAY IN THE NOSTRIL NEEDED FOR OPIOID REVERSAL. MAY REPEAT EVERY 2-3 MINUTES IN ALTERNATING NOSTRILS UNTIL MEDICAL ASSISTANCE ARRIVES * HYDROcodone-acetaminophen (Gerald) 10-325 MG tablet(Started 03/21/2023) TAKE 1/2 TO 1 TABLET BY MOUTH EVERY 6 HOURS NEEDED FOR PAIN Active Problems Problem Noted Date Diagnosed Date [...] bowel habits 02/28/201209/06 Screening for condition 12/27/200711/2008 Immunizations * Covid Pfizer primary monovalent 12+ yr 0.3mL Purple cap(Given 03/25/2020, 03/03/2020) * INFLUENZA VACCINE(Given 12/10/2021, 12/13/2020, 12/15/2019, 12/13/2018, 12/11/2015, 01/06/2013) * TDAP (7yrs+)(Given 12/21/2015) Social History Tobacco Use Types Packs/Day Years [...] Recorded Patient Health Questionnaire-2 Score 0 11/15/2022 [facility] Occupat ional Health - Occupational Stress [...] place to sleep or slept in a mcfp (including now)? No 01/10/2023 Sex and Gender Information Value Date Recorded Sex Assigned at Not on file Gender Identity Not on file Sexual Orientation Not on file Last Filed Vital Signs Vital Sign Reading Time Taken Comments Blood Pressure 111/74 04/05/2023 1:00 PM NURSING TECHN Pulse 72 04/05/2023 1:00 PM NURSING TECHN Temperature 36.5 ??C (97.7 ??F) 04/05/2023 10:[address] Respiratory Rate 16 03/27/2023 1:35 PM NURSING TECHN Oxygen Saturation 98% 04/05/2023 1:00 PM NURSING TECHN Inhaled Oxygen Concentration 30% 10/24/2022 2 :00 PM CDT Weight 91.2 kg (201 lb) 04/30/2023 2:26 PM NURSING TECHN Height 162.6 cm (5' 4 ) 04/05/2023 1:00 PM NURSING TECHN Body Mass Index 34.5 04/05/2023 1:00 PM NURSING TECHN Medical Devices Implanted Type Area Special Education Professor Device Identifier Shelf Expiration Date Model / Serial / Lot Syntthecel Dura Repair Implanted:Qty: 1 on 10/20/2022 by Jazz Martin MD at [facility] 05/10/2023 SC.400.28 0.01S / / [id number] Agent Hmst Thrmb Kt Surgiflo 2ml Implanted:Qty: 1 on 10/20/2022 by Jazz Martin MD at [facility] [employer] 10/11/2023 [id number] / / [id number] Seprafilm Adhesion Barrier Implanted:Qty: 1 on 10/20/2022 by Jazz Martin MD at [facility] 01/24/2025 5086-02 / / [id number] Patch Cv 6x1cm Vsgrd Bvn Pricrd Strl Implanted:Qty: 1 on 10/30/2022 by Valdez Clay MD at [facility] Right: Arterial [employer] 04/28/2023 [id number] / / [id number] Description:IMPLANTED IN THE RIGHT FEMORAL ARTERY Plate 4 Hl Ult Lopro Chmfr Edg Crnl Implanted:Qty: 1 on 01/10/2023 by Jarvis Gagnon MD at [facility] Right: Cranial Synthes Usa 502.06 3 / / Plate 4 Hl Ult Lopro Chmfr Edg Crnl 16 Implanted:Qty: 1 on 01/10/2023 by Jarvis Gagnon MD at [facility] Right: Cranial Synthes Usa 502.07 3 / / Plate Contr Mesh Mlbl Mstd 45mmx.4mm Med Implanted:Qty: 1 on 01/10/2023 by Jarvis Gagnon MD at [facility] Right: Cranial Synthes Maxillofacial .09 7 / / Screw 1.5mm 4mm Crnmxf Slfdrl Implanted:Qty: 28 on 01/10/2023 by Jarvis Gagnon MD at [facility] Right: Cranial Synthes Maxillofacial .10 4.01 / / Cover Bur Hl Rob 24mm Matrixneuro Crnl Implanted:Qty: 1 on 01/10/2023 by Jarvis Gagnon MD at [facility] Right: Cranial Synthes Maxillofacial 503.02 4 / / Plate 5 Hl Adp Rgd Crnl .4mm Matrixneuro Implanted:Qty: 2 on 01/10/2023 by Jarvis Gagnon MD at [facility] Right: Cranial Synthes Usa 503.07 0 / / Explanted Type Area Special Education Professor Device Identifier Shelf Expiration Date Model / Serial / Lot Screw 1.5mm 4mm Crnmxf Slfdrl Explanted:Qty: 1 on 01/10/2023 by Jarvis Gagnon MD at [facility] Right: Cranial Synthes Maxillofacial .104 .01 / / Screw 1.55mm 2.65mm 4mm Crnmxf Er Explanted:Qty: 1 on 01/10/2023 by Jarvis Gagnon MD at [facility] Right: Cranial Synthes Maxillofacial 04.503.114 .01 / / Procedures * ESTRADIOL(Performed 04/12/2023) Performed for Amenorrhea * FSH + LH PANEL(Performed 04/12/2023) Performed for Amenorrhea * VA MSR PVR U&/BLADD CAPCTY US NON(Performed 04/05/2023) Performed for Urinary retention * URINALYSIS AUTO - POINT OF CARE (AMB) SLU(Performed 04/05/2023) Performed for Urinary retention * CT HEAD WO CONTRAST(Performed 04/05/2023) Performed for Acquired skull defect * MAMMO BILAT SCREENING W LOWELL(Performed 02/15/2023) Performed for Encounter for screening mammogram for breast cancer * CT HEAD WO CONTRAST(Performed 02/03/2023) Performed for Acute intractable headache, unspecified headache type * XR PELVIS W LEFT HIP 2VW(Performed 02/03/2023) Performed for Left hip pain * URINALYSIS W/MICROSCOPIC NO CULTURE(Performed 02/03/2023) * HCG BETA BLOOD QUANTITATIVE(Performed 02/03/2023) * C-REACTIVE PROTEIN(Performed 02/03/2023) * COMPREHENSIVE METABOLIC PANEL(Performed 02/03/2023) * CBC W AUTO DIFFERENTIAL(Performed 01/11/2023) * BASIC METABOLIC PANEL (CALCIUM TOTAL)(Performed 01/11/2023) * CT HEAD WO CONTRAST(Performed 01/11/2023) Performed for Acquired skull defect * VA REPAIR SKULL DEFECT,>5CM(Performed 01/10/2023) Performed for Acquired skull defect * PERIPHERAL IV NOTE(Performed 01/10/2023) * ENDOTRACHEAL TUBE NOTE(Performed 01/10/2023) * TYPE + SCREEN PANEL(Performed 01/10/2023) Performed for Pre-op evaluation * PTT SLH(Performed 01/10/2023) * CBC W AUTO DIFFERENTIAL(Performed 01/10/2023) Performed for Pre-op evaluation * PT-INR SLH(Performed 01/10/2023) Performed for Pre-op evaluation * HCG URINE QUALITATIVE - POCT (IP) INTERFACED(Performed 01/10/2023) * HCG URINE QUAL POCT NOTIFICATION(Performed 01/10/2023) Performed for Pre-op evaluation * ECHO SARAH COMPLETE(Performed 01/05/2023) 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) * HCG URINE QUALITATIVE - POCT (IP) INTERFACED(Performed 01/05/2023) * HCG URINE QUAL POCT NOTIFICATION(Performed 01/05/2023) Performed for Pre-op testing * TYPE + SCREEN PANEL(Performed 12/26/2022) Performed for Pre-op evaluation * VAS RIGHT ARTERIAL DUPLEX LE(Performed 12/26/2022) Performed for Iliac artery occlusion, right (HCC), S/P peripheral artery angioplasty * VAS ARTERIAL ANKLE ARM INDEX(Performed 12/26/2022) Performed for Iliac artery occlusion, right (HCC) * PTT SLH(Performed 12/21/2022) Performed for Pre-op testing * PT-INR SLH(Performed 12/21/2022) Performed for Pre-op testing * CBC W AUTO DIFFERENTIAL(Performed 12/21/2022) Performed for Pre-op testing * BASIC METABOLIC PANEL (CALCIUM TOTAL)(Performed 12/21/2022) Performed for Pre-op testing * CT HEAD WO CONTRAST(Performed 12/21/2022) Performed for Acquired skull defect * PT-INR(Performed 12/14/2022) * BASIC METABOLIC PANEL (CALCIUM TOTAL)(Performed 12/14/2022) * CBC W/O DIFFERENTIAL(Performed 12/14/2022) * PT-INR(Performed 12/13/2022) * PT-INR(Performed 12/12/2022) * PT-INR(Performed 12/11/2022) * BASIC METABOLIC PANEL (CALCIUM TOTAL)(Performed 12/11/2022) * CBC W/O DIFFERENTIAL(Performed 12/11/2022) * PT-INR(Performed 12/07/2022) * BASIC METABOLIC PANEL (CALCIUM TOTAL)(Performed 12/07/2022) * CBC W/O DIFFERENTIAL(Performed 12/07/2022) * URINE MICROSCOPIC ONLY REFLEX TO CULTURE(Performed 12/06/2022) * URINALYSIS REFLEX MICROSCOPIC REFLEX CULTURE(Performed 12/06/2022) * CULTURE URINE(Performed 12/06/2022) * FL SWALLOWING FUNCTION STUDY(Performed 12/06/2022) * XR PELVIS W LEFT HIP 2VW(Performed 12/05/2022) * PT-INR(Performed 12/05/2022) * PT-INR(Performed 12/04/2022) * BASIC METABOLIC PANEL (CALCIUM TOTAL)(Performed 12/04/2022) * CBC W/O DIFFERENTIAL(Performed 12/04/2022) * PT-INR(Performed 12/03/2022) * PT-INR(Performed 12/02/2022) * PT-INR(Performed 12/01/2022) * PT-INR(Performed 11/30/2022) * BASIC METABOLIC PANEL (CALCIUM TOTAL)(Performed 11/30/2022) * CBC W/O DIFFERENTIAL(Performed 11/30/2022) * PT-INR(Performed 11/29/2022) * PT-INR(Performed 11/28/2022) * PT-INR(Performed 11/28/2022) * FL SWALLOWING FUNCTION STUDY(Performed 11/27/2022) Performed for Dysphagia, unspecified type * PT-INR(Performed 11/27/2022) * BASIC METABOLIC PANEL (CALCIUM TOTAL)(Performed 11/27/2022) * CBC W/O DIFFERENTIAL(Performed 11/27/2022) * XR HIPS BILATERAL 2VW(Performed 11/26/2022) * PT-INR(Performed 11/26/2022) * PT-INR(Performed 11/25/2022) * PT-INR(Performed 11/23/2022) * BASIC METABOLIC PANEL (CALCIUM TOTAL)(Performed 11/23/2022) * CBC W/O DIFFERENTIAL(Performed 11/23/2022) * APHERESIS/TRANSFUSION ORDER(Performed 11/22/2022) * CARDIAC EKG ORDER(Performed 11/22/2022) * PT-INR(Performed 11/21/2022) * BASIC METABOLIC PANEL (CALCIUM TOTAL)(Performed 11/20/2022) * CBC W/O DIFFERENTIAL(Performed 11/20/2022) * PT-INR(Performed 11/20/2022) * XR ABDOMEN KUB(Performed 11/19/2022) * CT HEAD WO CONTRAST(Performed 11/19/2022) * PT-INR(Performed 11/19/2022) * BASIC METABOLIC PANEL (CALCIUM TOTAL)(Performed 11/18/2022) * CBC W/O DIFFERENTIAL(Performed 11/18/2022) * PT-INR(Performed 11/18/2022) * HEPATIC FUNCTION PANEL(Performed 11/17/2022) * PHOSPHORUS BLOOD(Performed 11/17/2022) * MAGNESIUM BLOOD(Performed 11/17/2022) * BASIC METABOLIC PANEL (CALCIUM TOTAL)(Performed 11/17/2022) * CBC W AUTO DIFFERENTIAL(Performed 11/17/2022) * PTT SLH(Performed 11/17/2022) * PT-INR SLH(Performed 11/17/2022) * CT ABDOMEN PELVIS W CONTRAST(Performed 11/16/2022) Performed for Aortic valve vegetation (HCC) * DIFFERENTIAL MANUAL(Performed 11/16/2022) * PHOSPHORUS BLOOD(Performed 11/16/2022) * MAGNESIUM BLOOD(Performed 11/16/2022) * BASIC METABOLIC PANEL (CALCIUM TOTAL)(Performed 11/16/2022) * CBC W AUTO DIFFERENTIAL(Performed 11/16/2022) * PTT SLH(Performed 11/16/2022) * PT-INR SLH(Performed 11/16/2022) * GRAM STAIN (LAB ORDERED)(Performed 11/15/2022) * HOLD SPECIMEN CSF(Performed 11/15/2022) * CELL COUNT W DIFFERENTIAL CSF(Performed 11/15/2022) * PROTEIN CSF(Performed 11/15/2022) * GLUCOSE CSF(Performed 11/15/2022) * CULTURE CSF+GRAM STAIN(Performed 11/15/2022) * MENINGITIS ENCEPHALITIS PCR PANEL CSF(Performed 11/15/2022) * CULTURE CSF+GRAM STAIN(Performed 11/15/2022) * CULTURE FUNGUS OTHER+FUNGUS SMEAR(Performed 11/15/2022) * CULTURE AFB+SMEAR(Performed 11/15/2022) * FL LUMBAR PUNCTURE(Performed 11/15/2022) Performed for Fever, unspecified fever cause * EOSINOPHIL URINE SMEAR(Performed 11/15/2022) * HEPATIC FUNCTION PANEL(Performed 11/15/2022) * PHOSPHORUS BLOOD(Performed 11/15/2022) * MAGNESIUM BLOOD(Performed 11/15/2022) * BASIC METABOLIC PANEL (CALCIUM TOTAL)(Performed 11/15/2022) * CBC W AUTO DIFFERENTIAL(Performed 11/15/2022) * PTT SLH(Performed 11/15/2022) * PT-INR SLH(Performed 11/15/2022) * US ABDOMEN LTD W COMP DOPPLER(Performed 11/14/2022) Performed for Transaminitis * HEPATIC FUNCTION PANEL(Performed 11/14/2022) * PHOSPHORUS BLOOD(Performed 11/14/2022) * MAGNESIUM BLOOD(Performed 11/14/2022) * BASIC METABOLIC PANEL (CALCIUM TOTAL)(Performed 11/14/2022) * CBC W AUTO DIFFERENTIAL(Performed 11/14/2022) * PTT SLH(Performed 11/14/2022) * PT-INR SLH(Performed 11/14/2022) * PREPARE FFP UNIT(S)(Performed 11/14/2022) * PREPARE RBC LEUKOREDUCED UNIT(Performed 11/14/2022) * CYTOMEGALOVIRUS (CMV) QUANTITATIVE PLASMA(Performed 11/13/2022) * MARY JO-HERBERT VIRUS QUANT BLOOD STL(Performed 11/13/2022) * CK BLOOD(Performed 11/13/2022) * GLUCOSE - POINT OF CARE(Performed 11/13/2022) * T4 FREE(Performed 11/13/2022) * HEPATIC FUNCTION PANEL(Performed 11/13/2022) * TSH REFLEX FREE T4(Performed 11/13/2022) * PHOSPHORUS BLOOD(Performed 11/13/2022) * MAGNESIUM BLOOD(Performed 11/13/2022) * BASIC METABOLIC PANEL (CALCIUM TOTAL)(Performed 11/13/2022) * CBC W AUTO DIFFERENTIAL(Performed 11/13/2022) * PTT SLH(Performed 11/13/2022) * PT-INR SLH(Performed 11/13/2022) * GLUCOSE - POINT OF CARE(Performed 11/12/2022) * XR CHEST 1VW PORTABLE(Performed 11/12/2022) Performed for Fever, unspecified fever cause * GLUCOSE - POINT OF CARE(Performed 11/12/2022) * PTT SLH(Performed 11/12/2022) * HEPATIC FUNCTION PANEL(Performed 11/12/2022) * PHOSPHORUS BLOOD(Performed 11/12/2022) * MAGNESIUM BLOOD(Performed 11/12/2022) * BASIC METABOLIC PANEL (CALCIUM TOTAL)(Performed 11/12/2022) * CBC W AUTO DIFFERENTIAL(Performed 11/12/2022) * PT-INR SLH(Performed 11/12/2022) * CULTURE BLOOD(Performed 11/12/2022) * GLUCOSE - POINT OF CARE(Performed 11/12/2022) * PTT SLH(Performed 11/11/2022) * GLUCOSE - POINT OF CARE(Performed 11/11/2022) * GLUCOSE - POINT OF CARE(Performed 11/11/2022) * PTT SLH(Performed 11/11/2022) * LACTIC ACID BLOOD REFLEX TO REPEAT(Performed 11/11/2022) * PHOSPHORUS BLOOD(Performed 11/11/2022) * MAGNESIUM BLOOD(Performed 11/11/2022) * BASIC METABOLIC PANEL (CALCIUM TOTAL)(Performed 11/11/2022) * CBC W AUTO DIFFERENTIAL(Performed 11/11/2022) * PT EVAL AND TREAT(Performed 11/11/2022) * PTT SLH(Performed 11/11/2022) * PT-INR SLH(Performed 11/11/2022) * GLUCOSE - POINT OF CARE(Performed 11/11/2022) * GLUCOSE - POINT OF CARE(Performed 11/11/2022) * TYPE + SCREEN PANEL(Performed 11/10/2022) * CBC W AUTO DIFFERENTIAL(Performed 11/10/2022) * PTT SLH(Performed 11/10/2022) * PT-INR SLH(Performed 11/10/2022) * GLUCOSE - POINT OF CARE(Performed 11/10/2022) * [facility] ED EGD FLEX TRANSORAL DX(Performed 11/10/2022) Performed for Acquired gastric wall deformity * ENDOTRACHEAL TUBE NOTE(Performed 11/10/2022) * CBC W AUTO DIFFERENTIAL(Performed 11/10/2022) * PT-INR SLH(Performed 11/10/2022) * BASIC METABOLIC PANEL (CALCIUM TOTAL)(Performed 11/10/2022) * PHOSPHORUS BLOOD(Performed 11/10/2022) * MAGNESIUM BLOOD(Performed 11/10/2022) * MRI BRAIN WWO CONTRAST(Performed 11/09/2022) Performed for Fever, unspecified fever cause * CT ABDOMEN PELVIS W CONTRAST(Performed 11/09/2022) Performed for Aortic valve vegetation (HCC) * HEPATIC FUNCTION PANEL(Performed 11/09/2022) * VANCOMYCIN LEVEL TROUGH(Performed 11/09/2022) * PT-INR SLH(Performed 11/09/2022) * BASIC METABOLIC PANEL (CALCIUM TOTAL)(Performed 11/08/2022) * CBC W AUTO DIFFERENTIAL(Performed 11/08/2022) * PHOSPHORUS BLOOD(Performed 11/08/2022) * MAGNESIUM BLOOD(Performed 11/08/2022) * VAS BILATERAL VENOUS DUPLEX LE(Performed 11/08/2022) Performed for Fever, unspecified fever cause * VAS BILATERAL VENOUS DUPLEX UE(Performed 11/08/2022) Performed for Fever, unspecified fever cause * PT-INR SLH(Performed 11/08/2022) * BASIC METABOLIC PANEL (CALCIUM TOTAL)(Performed 11/07/2022) * CBC W AUTO DIFFERENTIAL(Performed 11/07/2022) * PHOSPHORUS BLOOD(Performed 11/07/2022) * MAGNESIUM BLOOD(Performed 11/07/2022) * CT ANGIO CHEST PULM EMBOLISM(Performed 11/07/2022) Performed for Fever, unspecified fever cause * PT-INR SLH(Performed 11/07/2022) * PTT [facility](Performed 11/06/2022) * BASIC METABOLIC PANEL (CALCIUM TOTAL)(Performed 11/06/2022) * CBC W AUTO DIFFERENTIAL(Performed 11/06/2022) * PHOSPHORUS BLOOD(Performed 11/06/2022) * MAGNESIUM BLOOD(Performed 11/06/2022) * PTT SLH(Performed 11/06/2022) * ECHO COMPLETE W CONTRAST(Performed 11/06/2022) Performed for Fever, unspecified fever cause * PTT SLH(Performed 11/06/2022) * TSH REFLEX FREE T4(Performed 11/06/2022) * D-DIMER(Performed 11/06/2022) * PT-INR SLH(Performed 11/06/2022) * PTT [facility](Performed 11/06/2022) * BASIC METABOLIC PANEL (CALCIUM TOTAL)(Performed 11/06/2022) * CBC W AUTO DIFFERENTIAL(Performed 11/06/2022) * PHOSPHORUS BLOOD(Performed 11/06/2022) * MAGNESIUM BLOOD(Performed 11/06/2022) * C-REACTIVE PROTEIN(Performed 11/06/2022) * CBC W AUTO DIFFERENTIAL(Performed 11/06/2022) * XR ABDOMEN KUB PORTABLE(Performed 11/05/2022) Performed for Fever, unspecified fever cause * PTT SLH(Performed 11/05/2022) * RESPIRATORY PANEL WITH SARS-COV-2 BY PCR (STL)(Performed 11/05/2022) * CULTURE URINE(Performed 11/05/2022) * URINALYSIS REFLEX TO MICROSCOPIC NO CULTURE(Performed 11/05/2022) * CBC W AUTO DIFFERENTIAL(Performed 11/05/2022) * BASIC METABOLIC PANEL (CALCIUM TOTAL)(Performed 11/05/2022) * PHOSPHORUS BLOOD(Performed 11/05/2022) * MAGNESIUM BLOOD(Performed 11/05/2022) * BLOOD GAS ART+LYTES+METAB+COOX POC NOTIF(Performed 11/05/2022) Performed for Primary hypertension * PTT SLH(Performed 11/05/2022) * CULTURE BLOOD(Performed 11/05/2022) * XR CHEST 1VW PORTABLE(Performed 11/05/2022) Performed for Fever, unspecified fever cause * PTT [facility]H(Performed 11/05/2022) * PT-INR SLH(Performed 11/05/2022) * CT HEAD WO CONTRAST(Performed 11/05/2022) 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) * PTT SLH(Performed 11/04/2022) * BASIC METABOLIC PANEL (CALCIUM TOTAL)(Performed 11/04/2022) * CBC W AUTO DIFFERENTIAL(Performed 11/04/2022) * PHOSPHORUS BLOOD(Performed 11/04/2022) * MAGNESIUM BLOOD(Performed 11/04/2022) * PTT SLH(Performed 11/04/2022) * PTT [facility](Performed 11/04/2022) * VANCOMYCIN LEVEL TROUGH(Performed 11/04/2022) * PT-INR SLH(Performed 11/04/2022) * PHOSPHORUS BLOOD(Performed 11/04/2022) * MAGNESIUM BLOOD(Performed 11/04/2022) * BASIC METABOLIC PANEL (CALCIUM TOTAL)(Performed 11/04/2022) * PTT SLH(Performed 11/04/2022) * PT-INR SLH(Performed 11/03/2022) * PTT [facility]H(Performed 11/03/2022) * PTT [facility]H(Performed 11/03/2022) * PTT [facility](Performed 11/03/2022) * GLUCOSE - POINT OF CARE(Performed 11/03/2022) * PTT [facility](Performed 11/03/2022) * PT-INR SLH(Performed 11/03/2022) * BASIC METABOLIC PANEL (CALCIUM TOTAL)(Performed 11/02/2022) * CBC W AUTO DIFFERENTIAL(Performed 11/02/2022) * PHOSPHORUS BLOOD(Performed 11/02/2022) * MAGNESIUM BLOOD(Performed 11/02/2022) * PTT SLH(Performed 11/02/2022) * PTT [facility](Performed 11/02/2022) * PTT [facility](Performed 11/02/2022) * VANCOMYCIN LEVEL TROUGH(Performed 11/02/2022) * OT EVAL AND TREAT(Performed 11/02/2022) * PTT [facility]H(Performed 11/02/2022) * HEPATITIS C AB SCREEN RFLX NAAT QUANT(Performed 11/02/2022) * HEPATITIS B PANEL(Performed 11/02/2022) * EXPOSURE HIV(Performed 11/02/2022) * PTT [facility]H(Performed 11/02/2022) * PT-INR SLH(Performed 11/02/2022) * BASIC METABOLIC PANEL (CALCIUM TOTAL)(Performed 11/02/2022) * CBC W AUTO DIFFERENTIAL(Performed 11/02/2022) * PHOSPHORUS BLOOD(Performed 11/02/2022) * MAGNESIUM BLOOD(Performed 11/02/2022) * PREPARE RBC LEUKOREDUCED UNIT(Performed 11/02/2022) * PREPARE RBC LEUKOREDUCED UNIT(Performed 11/02/2022) * PREPARE RBC LEUKOREDUCED UNIT(Performed 11/02/2022) 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) * CT ABDOMEN WO CONTRAST(Performed 2022) Performed for 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) * [facility] E[facility] FLEX TRANSORAL DX(Performed 2022) Performed for Malnutrition, unspecified type (HCC) * EGD(Performed 2022) * PT EVAL AND TREAT(Performed 2022) * PT EVAL AND TREAT(Performed 2022) * PTT [facility]H(Performed 2022) * PT-INR SLH(Performed 2022) * PTT [facility](Performed 2022) * PTT [facility](Performed 2022) * BASIC METABOLIC PANEL (CALCIUM TOTAL)(Performed 2022) * CBC W AUTO DIFFERENTIAL(Performed 2022) * PHOSPHORUS BLOOD(Performed 2022) * MAGNESIUM BLOOD(Performed 2022) * PTT [facility]H(Performed 10/31/2022) * PTT [facility](Performed 10/31/2022) * PTT [facility](Performed 10/31/2022) * CT ABDOMEN PELVIS W CONTRAST(Performed 10/31/2022) Performed for Aortic valve vegetation (HCC) * VANCOMYCIN LEVEL TROUGH(Performed 10/31/2022) * PTT [facility](Performed 10/31/2022) * PT-INR SLH(Performed 10/31/2022) * BASIC METABOLIC PANEL (CALCIUM TOTAL)(Performed 10/31/2022) * CBC W AUTO DIFFERENTIAL(Performed 10/31/2022) * PHOSPHORUS BLOOD(Performed 10/31/2022) * MAGNESIUM BLOOD(Performed 10/31/2022) * PTT [facility](Performed 10/30/2022) * PTT [facility](Performed 10/30/2022) * CT HEAD WO CONTRAST(Performed 10/30/2022) 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) * PTT [facility](Performed 10/30/2022) * FL GLENN W ANGIO TEAM(Performed 10/30/2022) Performed for Acute lower limb ischemia * TRANSFUSE RED BLOOD CELL LEUKOREDUCED UNIT(S)(Performed 10/30/2022) * ACT LR - POCT ([facility])(Performed 10/30/2022) * BLOOD GAS+COOX+LYTES+METAB ARTERIAL POCT(Performed 10/30/2022) * ACT LR - POCT ([facility])(Performed 10/30/2022) * BLOOD GAS+COOX+LYTES+METAB ARTERIAL POCT(Performed 10/30/2022) * ACT LR - POCT ([facility])(Performed 10/30/2022) * TRANSFUSE RED BLOOD CELL LEUKOREDUCED UNIT(S)(Performed 10/30/2022) * BLOOD GAS ART+LYTES+METAB+COOX POC NOTIF(Performed 10/30/2022) Performed for Primary hypertension * ACT LR - POCT ([facility])(Performed 10/30/2022) * PATHOLOGY TISSUE(Performed 10/30/2022) Performed for Ischemia * ACT LR - POCT ([facility])(Performed 10/30/2022) * ACT LR - POCT ([facility])(Performed 10/30/2022) * ENDOTRACHEAL TUBE NOTE(Performed 10/30/2022) * ARTERIAL LINE NOTE(Performed 10/30/2022) * VA REMV ART CLOT ILIAC-POP,LEG INCIS(Performed 10/30/2022) Performed for Ischemia * PREPARE RBC LEUKOREDUCED UNIT(Performed 10/30/2022) * PTT [facility](Performed 10/30/2022) * PT-INR [facility](Performed 10/30/2022) * PTT [facility](Performed 10/30/2022) * HCG BETA BLOOD QUANTITATIVE(Performed 10/30/2022) * DIFFERENTIAL MANUAL(Performed 10/30/2022) * BASIC METABOLIC PANEL (CALCIUM TOTAL)(Performed 10/30/2022) * CBC W AUTO DIFFERENTIAL(Performed 10/30/2022) * PHOSPHORUS BLOOD(Performed 10/30/2022) * MAGNESIUM BLOOD(Performed 10/30/2022) * PTT [facility](Performed 10/29/2022) * PTT [facility](Performed 10/29/2022) * TYPE + SCREEN PANEL(Performed 10/29/2022) * XR CHEST 1VW PORTABLE(Performed 10/29/2022) Performed for Hypoxia * PTT [facility](Performed 10/29/2022) * PT-INR [facility](Performed 10/29/2022) * PTT [facility](Performed 10/29/2022) * DIFFERENTIAL MANUAL(Performed 10/29/2022) * BASIC METABOLIC PANEL (CALCIUM TOTAL)(Performed 10/29/2022) * CBC W AUTO DIFFERENTIAL(Performed 10/29/2022) * PHOSPHORUS BLOOD(Performed 10/29/2022) * MAGNESIUM BLOOD(Performed 10/29/2022) * XR ABDOMEN KUB(Performed 10/28/2022) 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) * GLUCOSE - POINT OF CARE(Performed 10/28/2022) * PTT [facility](Performed 10/28/2022) * GLUCOSE - POINT OF CARE(Performed 10/28/2022) * PTT [facility](Performed 10/28/2022) * GLUCOSE - POINT OF CARE(Performed 10/28/2022) * VANCOMYCIN LEVEL TROUGH(Performed 10/28/2022) * PTT [facility](Performed 10/28/2022) * CT HEAD WO CONTRAST(Performed 10/28/2022) Performed for At high risk for bleeding after thrombolytic therapy * GLUCOSE - POINT OF CARE(Performed 10/28/2022) * XR ABDOMEN KUB PORTABLE(Performed 10/28/2022) 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) * PTT [facility](Performed 10/28/2022) * PT-INR [facility](Performed 10/28/2022) * BASIC METABOLIC PANEL (CALCIUM TOTAL)(Performed 10/28/2022) * PHOSPHORUS BLOOD(Performed 10/28/2022) * MAGNESIUM BLOOD(Performed 10/28/2022) * GLUCOSE - POINT OF CARE(Performed 10/28/2022) * DIFFERENTIAL MANUAL(Performed 10/27/2022) * CBC W AUTO DIFFERENTIAL(Performed 10/27/2022) * PTT [facility](Performed 10/27/2022) * ANTITHROMBIN III ACTIVITY(Performed 10/27/2022) 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) * GLUCOSE - POINT OF CARE(Performed 10/27/2022) * URINALYSIS REFLEX MICROSCOPIC REFLEX CULTURE(Performed 10/27/2022) * CULTURE URINE(Performed 10/27/2022) * MYCOPLASMA PNEUMONIAE AB IGM(Performed 10/27/2022) * MYCOPLASMA PNEUMONIAE AB IGG(Performed 10/27/2022) * CHLAMYDIA ANTIBODY IGG/IGM PANEL(Performed 10/27/2022) * Q FEVER IGG/IGM AB PANEL RFLX TITER(Performed 10/27/2022) * BARTONELLA HENSELAE ANTIBODY IGG(Performed 10/27/2022) * BARTONELLA HENSELAE ANTIBODY IGM(Performed 10/27/2022) * PTT SLH(Performed 10/27/2022) * BARTONELLA SPECIES PCR(Performed 10/27/2022) * CULTURE BLOOD AFB(Performed 10/27/2022) * CULTURE BLOOD FUNGUS(Performed 10/27/2022) * GLUCOSE - POINT OF CARE(Performed 10/27/2022) * XR CHEST 1VW PORTABLE(Performed 10/27/2022) Performed for Leukocytosis, unspecified type * GLUCOSE - POINT OF CARE(Performed 10/27/2022) * PTT SLH(Performed 10/27/2022) * PT-INR SLH(Performed 10/27/2022) * CT HEAD WO CONTRAST(Performed 10/27/2022) 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), 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), Aortic valve vegetation (HCC) * DIFFERENTIAL MANUAL(Performed 10/27/2022) * PTT SLH(Performed 10/27/2022) * BASIC METABOLIC PANEL (CALCIUM TOTAL)(Performed 10/27/2022) * CBC W AUTO DIFFERENTIAL(Performed 10/27/2022) * PHOSPHORUS BLOOD(Performed 10/27/2022) * MAGNESIUM BLOOD(Performed 10/27/2022) * PTT SLH(Performed 10/26/2022) * GLUCOSE - POINT OF CARE(Performed 10/26/2022) * PTT SLH(Performed 10/26/2022) * VAS ARTERIAL MULTILEVEL LE(Performed 10/26/2022) 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) * GLUCOSE - POINT OF CARE(Performed 10/26/2022) * PTT SLH(Performed 10/26/2022) * VANCOMYCIN LEVEL TROUGH(Performed 10/26/2022) * LAB MISC TEST(Performed 10/26/2022) * GLUCOSE - POINT OF CARE(Performed 10/26/2022) * PTT [facility]H(Performed 10/26/2022) * CT HEAD WO CONTRAST(Performed 10/26/2022) 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) * PT-INR SLH(Performed 10/26/2022) * PTT [facility](Performed 10/26/2022) * BASIC METABOLIC PANEL (CALCIUM TOTAL)(Performed 10/26/2022) * CBC W AUTO DIFFERENTIAL(Performed 10/26/2022) * PHOSPHORUS BLOOD(Performed 10/26/2022) * MAGNESIUM BLOOD(Performed 10/26/2022) * GLUCOSE - POINT OF CARE(Performed 10/25/2022) * PTT SLH(Performed 10/25/2022) * GLUCOSE - POINT OF CARE(Performed 10/25/2022) * PTT SLH(Performed 10/25/2022) * PT-INR [facility](Performed 10/25/2022) * CT CHEST ABDOMEN PELVIS W CONT(Performed 10/25/2022) 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), Aortic valve vegetation (HCC) * CT HEAD WO CONTRAST(Performed 10/25/2022) 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), Aortic valve vegetation (HCC) * XR CHEST 1VW PORTABLE(Performed 10/25/2022) 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) * CULTURE BLOOD(Performed 10/25/2022) * GLUCOSE - POINT OF CARE(Performed 10/25/2022) * HEPATITIS C AB SCREEN RFLX NAAT QUANT(Performed 10/25/2022) * HIV-1 HIV-2 ANTIBODY + HIV P24 AG PANEL(Performed 10/25/2022) * BASIC METABOLIC PANEL (CALCIUM TOTAL)(Performed 10/25/2022) * CBC W AUTO DIFFERENTIAL(Performed 10/25/2022) * PHOSPHORUS BLOOD(Performed 10/25/2022) * MAGNESIUM BLOOD(Performed 10/25/2022) * GLUCOSE - POINT OF CARE(Performed 10/24/2022) * GLUCOSE - POINT OF CARE(Performed 10/24/2022) * PT EVAL AND TREAT(Performed 10/24/2022) * OT EVAL AND TREAT(Performed 10/24/2022) * EXTUBATION(Performed 10/24/2022) * XR ABDOMEN KUB PORTABLE(Performed 10/24/2022) Performed for Dysarthria * CULTURE BLOOD(Performed 10/24/2022) * GLUCOSE - POINT OF CARE(Performed 10/24/2022) * MRI BRAIN WWO CONTRAST(Performed 10/24/2022) Performed for 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) * GLUCOSE - POINT OF CARE(Performed 10/24/2022) * LAB MISC TEST(Performed 10/23/2022) * LUPUS ANTICOAGULANT PANEL(Performed 10/23/2022) * CARDIOLIPIN ANTIBODY IGM(Performed 10/23/2022) * CARDIOLIPIN ANTIBODY IGG(Performed 10/23/2022) * CARDIOLIPIN ANTIBODY IGA(Performed 10/23/2022) * BETA-2 GLYCOPROTEIN 1 ANTIBODY IGG/IGM PANEL(Performed 10/23/2022) * BETA-2 GLYCOPROTEIN 1 ANTIBODY IGA(Performed 10/23/2022) * BASIC METABOLIC PANEL (CALCIUM TOTAL)(Performed 10/23/2022) * CBC W AUTO DIFFERENTIAL(Performed 10/23/2022) * PHOSPHORUS BLOOD(Performed 10/23/2022) * MAGNESIUM BLOOD(Performed 10/23/2022) * GLUCOSE - POINT OF CARE(Performed 10/23/2022) * C-REACTIVE PROTEIN(Performed 10/23/2022) * ERYTHROCYTE SEDIMENTATION RATE(Performed 10/23/2022) * CT CARDIAC ANGIO STRUCT MORPH(Performed 10/23/2022) Performed for 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) * XR ABDOMEN KUB PORTABLE(Performed 10/23/2022) Performed for Dysarthria * MRSA DNA PCR(Performed 10/23/2022) * CULTURE BLOOD(Performed 10/23/2022) * CULTURE BLOOD(Performed 10/23/2022) * GLUCOSE - POINT OF CARE(Performed 10/23/2022) * ECHO SARAH COMPLETE(Performed 10/23/2022) 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) * XR CHEST 1VW PORTABLE(Performed 10/23/2022) 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) * CT HEAD WO CONTRAST(Performed 10/23/2022) 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) * BASIC METABOLIC PANEL (CALCIUM TOTAL)(Performed 10/23/2022) * CBC W AUTO DIFFERENTIAL(Performed 10/23/2022) * PHOSPHORUS BLOOD(Performed 10/23/2022) * MAGNESIUM BLOOD(Performed 10/23/2022) * GLUCOSE - POINT OF CARE(Performed 10/22/2022) * GLUCOSE - POINT OF CARE(Performed 10/22/2022) * GLUCOSE - POINT OF CARE(Performed 10/22/2022) * CT HEAD WO CONTRAST(Performed 10/22/2022) 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) * GLUCOSE - POINT OF CARE(Performed 10/22/2022) * CT HEAD WO CONTRAST(Performed 10/22/2022) 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) * PLATELET COUNT AUTO CITRATED BLOOD(Performed 10/22/2022) * GLUCOSE - POINT OF CARE(Performed 10/21/2022) * BASIC METABOLIC PANEL (CALCIUM TOTAL)(Performed 10/21/2022) * CBC W AUTO DIFFERENTIAL(Performed 10/21/2022) * PHOSPHORUS BLOOD(Performed 10/21/2022) * MAGNESIUM BLOOD(Performed 10/21/2022) * GLUCOSE - POINT OF CARE(Performed 10/21/2022) * GLUCOSE - POINT OF CARE(Performed 10/21/2022) * XR CHEST 1VW PORTABLE(Performed 10/21/2022) Performed for Weakness * BLOOD GASES ART + COOX PANEL(Performed 10/21/2022) * CBC W AUTO DIFFERENTIAL(Performed 10/21/2022) * TROPONIN-I HIGH SENSITIVE REFLEX 1HOUR(Performed 10/21/2022) * SARAH BLOOD SCREEN W/REFLEX TITER(Performed 10/21/2022) * FACTOR V LEIDEN MUTATION PANEL(Performed 10/21/2022) * COMPLEMENT C3(Performed 10/21/2022) * RHEUMATOID FACTOR BLOOD QUANTITATIVE(Performed 10/21/2022) * PHOSPHORUS BLOOD(Performed 10/21/2022) * MAGNESIUM BLOOD(Performed 10/21/2022) * CBC W/O DIFFERENTIAL(Performed 10/21/2022) * BASIC METABOLIC PANEL (CALCIUM TOTAL)(Performed 10/21/2022) * TROPONIN-I HIGH SENSITIVE BASELINE + 1HR(Performed 10/21/2022) * GLUCOSE - POINT OF CARE(Performed 10/21/2022) * GLUCOSE - POINT OF CARE(Performed 10/21/2022) * BLOOD GASES ART + COOX PANEL(Performed 10/20/2022) * CT HEAD WO CONTRAST(Performed 10/20/2022) Performed for 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) * BLOOD GAS+COOX+LYTES+METAB ARTERIAL POCT(Performed 10/20/2022) * BLOOD GAS ART+LYTES+METAB+COOX POC NOTIF(Performed 10/20/2022) 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) * ARTERIAL LINE NOTE(Performed 10/20/2022) * VA REMOVE BRAIN FOREIGN BODY(Performed 10/20/2022) Performed for Cerebrovascular accident (CVA), unspecified mechanism (HCC) * ENDOTRACHEAL TUBE NOTE(Performed 10/20/2022) * HGB HCT PANEL(Performed 10/20/2022) * ECHO COMPLETE W BUBBLE STUDY(Performed 10/20/2022) Performed for Left-sided sensory deficit present * XR ABDOMEN KUB PORTABLE(Performed 10/20/2022) 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) * GLUCOSE - POINT OF CARE(Performed 10/20/2022) * HEMOGLOBIN A1C(Performed 10/20/2022) * CT HEAD WO CONTRAST(Performed 10/20/2022) Performed for Left-sided sensory deficit present * GLUCOSE - POINT OF CARE(Performed 10/20/2022) * GLUCOSE - POINT OF CARE(Performed 10/20/2022) * BLOOD TYPE VERIFICATION(Performed 10/20/2022) * LIPID PROFILE(Performed 10/20/2022) * CBC W/O DIFFERENTIAL(Performed 10/20/2022) * BASIC METABOLIC PANEL (CALCIUM TOTAL)(Performed 10/20/2022) * LUPUS ANTICOAGULANT PANEL(Performed 10/20/2022) * PROTEIN S ACTIVITY(Performed 10/20/2022) * PROTEIN C ACTIVITY(Performed 10/20/2022) * GLUCOSE - POINT OF CARE(Performed 10/19/2022) * URINE DRUG SCREEN IMMUNOASSAY(Performed 10/19/2022) * HCG URINE QUALITATIVE(Performed 10/19/2022) * IR INTRACRANIAL MECH THROMBECT(Performed 10/19/2022) Performed for Left-sided sensory deficit present * ENDOTRACHEAL TUBE NOTE(Performed 10/19/2022) * PT EVAL AND TREAT(Performed 10/19/2022) * OT EVAL AND TREAT(Performed 10/19/2022) * TYPE + SCREEN PANEL(Performed 10/19/2022) * PT-INR SLH(Performed 10/19/2022) * COMPREHENSIVE METABOLIC PANEL(Performed 10/19/2022) * CBC W AUTO DIFFERENTIAL(Performed 10/19/2022) * EKG 12-LEAD(Performed 10/19/2022) Performed for Weakness * CT ANGIO BRAIN NECK STROKE(Performed 10/19/2022) Performed for Weakness * INR WHOLE BLOOD - POINT OF CARE (IP) STROKE(Performed 10/19/2022) * CREATININE - POCT INTERFACED(Performed 10/19/2022) * CT BRAIN STROKE(Performed 10/19/2022) Performed for Weakness * GLUCOSE - POINT OF CARE(Performed 10/19/2022) * CBC W AUTO DIFFERENTIAL(Performed 06/15/2022) Performed for Screening for lipoid disorders, Screening for endocrine, metabolic and immunity disorder, Vitamin D deficiency, Encounter for preventive health examination * COMPREHENSIVE METABOLIC PANEL(Performed 06/15/2022) Performed for Screening for lipoid disorders, Screening for endocrine, metabolic and immunity disorder, Vitamin D deficiency, Encounter for preventive health examination * VITAMIN D 25-HYDROXY(Performed 06/15/2022) Performed for Screening for lipoid disorders, Screening for endocrine, metabolic and immunity disorder, Vitamin D deficiency, Encounter for preventive health examination * LIPID PROFILE(Performed 06/15/2022) Performed for Screening for lipoid disorders, Screening for endocrine, metabolic and immunity disorder, Vitamin D deficiency, Encounter for preventive health examination * TSH REFLEX FREE T4(Performed 06/15/2022) Performed for Screening for lipoid disorders, Screening for endocrine, metabolic and immunity disorder, Vitamin D deficiency, Encounter for preventive health examination * PAP IG RFLX HPV HR ASCUS RFLX 16/18/45(Performed 02/08/2022) Performed for Pap smear, as part of routine gynecological examination * CARDIAC RHYTHM STRIP ORDER(Performed 08/27/2021) * PATHOLOGY TISSUE EXAM (STL)(Performed 08/25/2021) Performed for Screen for colon cancer, Personal history of colonic polyps * COLONOSCOPY REMOVAL OR ABLATION TUMOR/POLYP/LESION (ANY METHOD)(Performed 08/25/2021) Performed for Screen for colon cancer * COLONOSCOPY SCREEN(Performed 08/25/2021) Performed for Screen for colon cancer * ENDOSCOPY, COLON, SCREENING(Performed 08/25/2021) * HCG URINE QUALITATIVE - POCT (IP) INTERFACED(Performed 08/25/2021) * HCG URINE QUAL POCT NOTIFICATION(Performed 08/25/2021) Performed for Preop examination * PAP IG RFLX HPV HR ASCUS RFLX 16/18/45(Performed 01/10/2021) Performed for Pap smear, as part of routine gynecological examination * SKIN TEST PPD - POINT OF CARE(Performed 10/15/2020) Performed for PPD screening test * PAP IG RFLX HPV HR ASCUS RFLX 16/18/45(Performed 01/09/2020) Performed for Pap smear, as part of routine gynecological examination * DIASORIN SARS-COV-2 AB IGG REFLEXED(Performed 11/06/2019) Performed for Immunity status testing * SARS-COV-2 (COVID-19) ANTIBODY IGG [facility](Performed 11/06/2019) Performed for Immunity status testing * CT RENAL STONE(Performed 12/09/2018) Performed for Flank pain * HCG URINE QUAL POCT NOTIFICATION(Performed 12/09/2018) * HCG URINE QUALITATIVE - POCT (IP) INTERFACED(Performed 12/09/2018) * URINE MICROSCOPIC ONLY REFLEX TO CULTURE(Performed 12/09/2018) * URINALYSIS REFLEX MICROSCOPIC REFLEX CULTURE(Performed 12/09/2018) * COMPREHENSIVE METABOLIC PANEL(Performed 12/09/2018) * CBC W AUTO DIFFERENTIAL(Performed 12/09/2018) * PAP IG RFLX HPV HR ASCUS RFLX 16/18/45(Performed 12/04/2018) Performed for Pap smear, as part of routine gynecological examination * CT ABDOMEN PELVIS WO CONTRAST(Performed 07/26/2018) Performed for Left flank pain, Fever, unspecified fever cause * LACTIC ACID BLOOD(Performed 07/26/2018) * HCG URINE QUALITATIVE - POCT (IP) INTERFACED(Performed 07/25/2018) * URINE MICROSCOPIC ONLY REFLEX TO CULTURE(Performed 07/25/2018) * URINALYSIS REFLEX MICROSCOPIC REFLEX CULTURE(Performed 07/25/2018) * CULTURE URINE(Performed 07/25/2018) * HCG URINE QUAL POCT NOTIFICATION(Performed 07/25/2018) * LACTIC ACID BLOOD(Performed 07/25/2018) * COMPREHENSIVE METABOLIC PANEL(Performed 07/25/2018) * CBC W AUTO DIFFERENTIAL(Performed 07/25/2018) * CULTURE URINE(Performed 07/24/2018) Performed for Urinary tract infection without hematuria, site unspecified * URINALYSIS AUTO - POINT OF CARE (AMB) STL(Performed 07/24/2018) Performed for Urinary tract infection without hematuria, site unspecified * PAP IG LB RFLX HPV HR ASCU RFLX 16,18(Performed 10/09/2017) Performed for Pap smear, as part of routine gynecological examination * PAP IG LB RFLX HPV HR ASCU RFLX 16,18(Performed 09/04/2016) Performed for Routine gynecological examination * HGB HCT PANEL(Performed 03/02/2016) * NEURAXIAL BLOCK(Performed 03/01/2016) * BLOOD TYPE VERIFICATION(Performed 03/01/2016) * SECTION (REPEAT)(Performed 03/01/2016) * TYPE + SCREEN PANEL(Performed 03/01/2016) * CBC W AUTO DIFFERENTIAL(Performed 03/01/2016) Performed for PIH ( induced hypertension), third trimester (HCC) * COMPREHENSIVE METABOLIC PANEL(Performed 03/01/2016) Performed for PIH ( induced hypertension), third trimester (HCC) * COMPREHENSIVE METABOLIC PANEL(Performed 02/18/2016) Performed for Elevated blood pressure * CBC W/O DIFFERENTIAL(Performed 02/18/2016) Performed for Elevated blood pressure * CULTURE STREP B(Performed 02/18/2016) Performed for care, subsequent , third trimester (HCC) * GTT 3 HR (100G) GESTATIONAL DIAGNOSTIC(Performed 12/28/2015) Performed for care, subsequent , third trimester (HCC) * GLUCOSE CHALLENGE(Performed 12/17/2015) Performed for care, subsequent , second trimester (HCC) * US OB OVER 14 WEEKS(Performed 10/25/2015) Performed for Encounter for routine screening for malformation using ultrasonics, Encounter for supervision of other normal , second trimester (HCC) * OBSTETRIC PANEL(Performed 08/13/2015) Performed for Missed period * IMAGING/RADIOLOGY/XRAY RESULTS ORDER(Performed 08/03/2015) * PAP IG LB RFLX HPV HR ASCU RFLX 16,18(Performed 04/09/2015) Performed for Well female exam with routine gynecological exam * PAP IG LB RFLX HPV HR ASCU RFLX 16,18(Performed 02/20/2014) Performed for Routine gynecological examination * LIPASE BLOOD(Performed 07/07/2013) * COMPREHENSIVE METABOLIC PANEL(Performed 07/07/2013) * CBC W AUTO DIFFERENTIAL(Performed 07/07/2013) * EKG 12-LEAD(Performed 07/07/2013) Performed for Chest pain * XR CHEST 2VW(Performed 07/07/2013) Performed for Chest pain * PAP IG LB RFLX HPV HR ASCU RFLX 16,18(Performed 02/19/2013) Performed for Routine gynecological examination * CARDIAC RHYTHM STRIP ORDER(Performed 02/23/2012) * LAPAROSCOPIC CHOLECYSTECTOMY (SINGLE INCISION)(Performed 02/22/2012) Performed for Other specified disorder of gallbladder * PATHOLOGY TISSUE EXAM (STL)(Performed 02/22/2012) Performed for Biliary dyskinesia * HCG URINE QUALITATIVE - POINT OF CARE(Performed 02/22/2012) * NM HEPATOBILIARY W EF(Performed 02/20/2012) Performed for Abdominal pain, RUQ (right upper quadrant) * CARDIAC RHYTHM STRIP ORDER(Performed 02/08/2012) * ENDOSCOPY, COLON, DIAGNOSTIC(Performed 02/08/2012) * EGD(Performed 02/08/2012) * GROSS + MICRO EXAM(Performed 02/08/2012) * GROSS + MICRO EXAM(Performed 02/08/2012) * HCG URINE QUALITATIVE - POINT OF CARE(Performed 02/08/2012) * PAP IG LB RFLX HPV HR ASCU RFLX 16,18(Performed 01/29/2012) Performed for Routine gynecological examination * IGA BLOOD(Performed 01/24/2012) Performed for Epigastric pain, Altered bowel habits * TISSUE TRANSGLUTAMINASE AB IGA(Performed 01/24/2012) Performed for Epigastric pain, Altered bowel habits * FL UGI AND SMALL BOWEL SERIES(Performed 01/10/2012) Performed for Abdominal pain, unspecified site * NM HEPATOBILIARY WO EF(Performed 01/10/2012) Performed for Abdominal pain, unspecified site * CT ABDOMEN PELVIS W CONTRAST(Performed 12/29/2011) Performed for Abdominal pain, right upper quadrant * US ABDOMEN LIMITED(Performed 12/29/2011) Performed for Abdominal pain, right upper quadrant * DIFFERENTIAL MANUAL(Performed 12/29/2011) * AMYLASE BLOOD(Performed 12/29/2011) * LIPASE BLOOD(Performed 12/29/2011) * COMPREHENSIVE METABOLIC PANEL(Performed 12/29/2011) * CBC W AUTO DIFFERENTIAL(Performed 12/29/2011) * HCG URINE QUALITATIVE - POINT OF CARE(Performed 12/29/2011) * URINALYSIS REFLEX MICROSCOPIC REFLEX CULTURE(Performed 12/29/2011) * PAP IG LB RFLX HPV HR ALL(Performed 01/24/2011) Performed for Routine gynecological examination * PAP IG LB RFLX HPV HR ASCU RFLX 16,18(Performed 01/07/2010) Performed for Routine gynecological examination * COMPREHENSIVE METABOLIC PANEL(Performed 11/04/2009) * CBC W MANUAL DIFFERENTIAL(Performed 11/04/2009) * TSH(Performed 11/04/2009) * T4 FREE(Performed 11/04/2009) * LIPID PROFILE(Performed 11/04/2009) * PAP IG RFLX HPV ASCU(Performed 12/18/2008) Performed for Routine Gynecological Examination * PAP IG RFLX HPV ASCU(Performed 12/17/2007) * COMPREHENSIVE METABOLIC PANEL(Performed 09/25/2007) * CBC W AUTO DIFFERENTIAL(Performed 09/25/2007) * CBC W AUTO DIFFERENTIAL(Performed 09/24/2007) * HGB HCT PANEL(Performed 09/24/2007) * GROSS + MICRO EXAM(Performed 09/23/2007) * GROSS + MICRO EXAM(Performed 09/23/2007) * TYPE + SCREEN PANEL(Performed 09/23/2007) * PT PTT PANEL(Performed 09/23/2007) * FIBRINOGEN ACTIVITY(Performed 09/23/2007) * URIC ACID BLOOD(Performed 09/23/2007) * COMPREHENSIVE METABOLIC PANEL(Performed 09/23/2007) * BILIRUBIN DIRECT(Performed 09/23/2007) * FIBRIN SPLIT PRODUCTS(Performed 09/23/2007) * CBC W/O DIFFERENTIAL(Performed 09/23/2007) * [facility] ED EGD FLEX TRANSORAL DX Performed for Malnutrition, unspecified type (HCC) Results * ESTRADIOL (04/12/2023 2:07 PM NURSING TECHN) Estradiol 24.8 pg/mL [facility] ACCOUNT BILL Comment: ?Adult Female ? Range ? Follicular phase ? 12.5 - 166.0 ? Ovulation phase ?85.8 - 498.0 ? Luteal phase ? 43.8 - 211.0 ? Postmenopausal ? <6.0 - ??54.7 ? 1st trimester ? 215.0 - >4300.0 Dale ECLIA methodology Blood BLOOD SPECIMEN / Unknown 04/12/2023 2:07 PM NURSING TECHN 04/12/2023 Narrative Resulting Agency Comment Lab Testing performed at: [facility] [place] [address] ??[place] [id number] Jean Joy MD LAB - CHEMISTRY BIBIANA BLACKMAN [facility] ACCOUNT BILL [address] [place] [address] * FSH + LH PANEL (04/12/2023 2:07 PM NURSING TECHN) LH 8.5 mIU/mL [facility] ACCOUNT BILL Comment: ?Adult Female ?Range ? Follicular phase ?2.4 - ??12.6 ? Ovulation phase ?14.0 - ??95.6 ? Luteal phase ?1.0 - ??11.4 ? Postmenopausal ?7.7 - ??58.5 FSH 9.3 mIU/mL [facility] ACCOUNT BILL Comment: ?Adult Female ? Range ? Follicular phase ?3.5 - ??12.5 ? Ovulation phase ? 4.7 - ??21.5 ? Luteal phase ?1.7 - ?? 7.7 ? Postmenopausal ? 25.8 - 134.8 Blood BLOOD SPECIMEN / Unknown 04/12/2023 2:07 PM NURSING TECHN 04/12/2023 Narrative Resulting Agency Comment Lab Testing performed at: [facility] [address] ??[facility] [phone] Jean Joy MD LAB - CHEMISTRY BIBIANA BLACKMAN [facility] ACCOUNT BILL [address] [place] [address] * [facility] MSR PVR U&/BLADD CAPCTY US NON (04/05/2023 1:23 PM NURSING TECHN) Narrative Barbara Erickson LPN - 04/05/2023 1:23 PM NURSING TECHN Barbara Erickson LPN ? 04/05/2023 ??1:35 PM 50ml Dottie Monreal [facility] PROCEDURE/MINOR SURGICAL ORDERABLES * URINALYSIS AUTO - POINT OF CARE (AMB) [facility] (04/05/2023 1:08 PM NURSING TECHN) Glucose UA - [facility] [address] Bilirubin UA POCT 1+ [facility] [address] Ketones UA POCT 0.5+ [facility] [address] Specific [place] UA 1.[address] [facility] [address] Blood Urine POCT - [facility] [address] pH UA 6.0 [facility] [address] Protein UA 0.15+ [facility] [address] Urobilinogen UA - [facility] [address] Nitrite UA - [facility] [address] WBC UA - [facility] [address] Urine URINE / Unknown 04/05/2023 1 :08 PM NURSING TECHN Dottie Monreal [facility] LAB - POINT OF CARE ORDERABLES [facility] [address] [place] [address], [facility] [phone] * CT HEAD WO CONTRAST (04/05/2023 9:49 AM NURSING TECHN) Only the most recent of16 resultswithin the time period is included. Anatomical Region Laterality Modality Head Computed Tomogra phy 04/05/2023 11:2 1 AM NURSING TECHN Impressions 04/05/2023 12:03 PM NURSING TECHN IMPRESSION: Compared to prior head CT 02/03/2023: 1.Postsurgical changes of right frontoparietotemporal craniotomy/cranioplasty. There is a new hypoattenuating fluid collection underlying the surgery site measuring up to 1.8 cm in thickness, likely a hygroma. No significant midline shift or brain herniation. 2.Grossly unchanged large right MCA vascular territory infarct and small chronic left MCA vascular territory infarct. 3.No evidence of a new acute intracranial hemorrhage. 4.Decreased fluid collection along the right scalp overlying the craniotomy/cranioplasty that now measures ??4.7 x 6.5 x 1.1 cm (AP x CC x TV), previously 8.5 x 7.3 x 1.2 cm. Possibly represents an evolving postoperative collection/seroma versus a pseudomeningocele. Report dictated by Valdez Vieyra DO (Recruiting Team Lead). I, Lonnie Rae MD have personally reviewed and interpreted this examination/study. > Interpreting Provider: Lonnie Rae MD on 04/05/2023 12:03 PM Narrative 04/05/2023 12:03 PM NURSING TECHN PROCEDURE: ??CT HEAD WO CONTRAST, DATE/TIME OF EXAM: ??04/05/2023 9:50 AM, LOCATION ??[facility] INDICATION: M95.2: Acquired skull defect EXAMINATION: Computed tomography (CT) of the head without contrast CONTRAST: ??None ?? TECHNIQUE: CT of the head was performed without contrast according to standard protocol. CT dose reduction technique was used, including Automated Exposure Control. ADDITIONAL HISTORY: s/p cranioplasty with 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 COMPARISON: CT head without contrast dated 02/03/2023. FINDINGS: BRAIN PARENCHYMA/VENTRICLES/EXTRA-AXIAL SPACES/BONES: Re-demonstrated postsurgical changes of right frontoparietotemporal craniotomy/cranioplasty. A small amount of fat is present at the right anterior cerebral convexity. Evolving extra-axial hypoattenuating fluid collection underlying the craniotomy/cranioplasty site has developed measuring up to 1.8 cm in thickness, causing medial deviation of the encephalomalacia in the right MCA territory. 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 Small chronic infarct of the left frontal gyrus and left martínez radiata, which is consistent with a small chronic infarct corresponding to the left MCA vascular territory. Scattered white matter hypodensities, which are nonspecific but likely represents the sequela of chronic microangiopathic change. Mild generalized parenchymal volume loss. No evidence of a new acute intracranial hemorrhage. No significant midline shift or brain herniation. No evidence of hydrocephalus. Basal cisterns are patent. OTHER EXTRACRANIAL STRUCTURES: Decreased fluid collection of the right scalp overlying the surgical site that now measures 4.7 x 6.5 x 1.1 cm (AP x CC x TV), previously 8.5 x 7.3 x 1.2 cm when measured similarly. 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 Visualized paranasal sinuses and mastoids demonstrate no significant abnormality. Orbits are unremarkable. 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 CT dose reduction technique was used, including Automated Exposure Control. ADDITIONAL HISTORY: s/p cranioplasty with 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 COMPARISON: CT head without contrast dated 02/03/2023. FINDINGS: BRAIN PARENCHYMA/VENTRICLES/EXTRA-AXIAL SPACES/BONES: Re-demonstrated postsurgical changes of right frontoparietotemporal craniotomy/cranioplasty. A small amount of fat is present at the right anterior cerebral convexity. Evolving extra-axial hypoattenuating fluid collection underlying the craniotomy/cranioplasty site has developed measuring up to 1.8 cm in thickness, causing medial deviation of the encephalomalacia in the right MCA territory. 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 Small chronic infarct of the left frontal gyrus and left martínez radiata, which is consistent with a small chronicinfarct corresponding to the left MCA vascular territory. Scattered white matter hypodensities, which are nonspecific but likely represents the sequela of chronic microangiopathic change. Mildgeneralized parenchymal volume loss. No evidence of a new acute intracranial hemorrhage. No significant midline shift or brain herniation. Noevidence of hydrocephalus. Basal cisterns are patent. OTHER EXTRACRANIAL STRUCTURES: Decreased fluid collection of the right scalp overlying the surgical site that now measures 4.7 x 6.5 x 1.1 cm(AP x CC x TV), previously 8.5 x 7.3 x 1.2 cm when measured similarly. 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 Visualized paranasal sinuses and mastoids demonstrateno significant abnormality. Orbits are unremarkable. IMPRESSION: Compared to prior head CT 02/03/2023: 1.Postsurgical changes of right frontoparietotemporal craniotomy/cranioplasty. There is a new hypoattenuating fluid collection underlying the surgery site measuring up to 1.8 cm in thickness, likelya hygroma. No significant midline shift or brain herniation. 2.Grossly unchanged large right MCA vascular territory infarct and small chronic left MCA vascular territory infarct. 3.No evidence of a new acute intracranial hemorrhage. 4.Decreased fluid collection along the right scalp overlying the craniotomy/cranioplasty that now measures 4.7 x 6.5 x 1.1 cm (AP x CC x TV), previously 8.5 x 7.3 x 1.2 cm. Possibly represents an evolving postoperative collection/seroma versus a pseudomeningocele. Report dictated by Valdez Vieyra DO (Recruiting Team Lead). Lonnie Ornelas MD have personally reviewed and interpreted this examination/study. > Interpreting Provider: Lonnie Rae MD on 04/05/2023 12:03 PM [address]man MD CT ORDERABLES * MAMMO BILAT SCREENING W LOWELL (02/15/2023 2:00 PM NURSING TECHN) Anatomical Region Laterality Modality Breast Bilateral Mammography 02/15/2023 2:00 PM NURSING TECHN Impressions 02/15/2023 3:51 PM NURSING TECHN : 1. No mammographic evidence of malignancy [...] screening mammography. For further information, please call [phone]. Patient will be notified of mammography results by lay letter. OVERALL ASSESSMENT: ??BI-RADS CATEGORY 1: NEGATIVE. > Dictated by Tim Major MD (anesthesia resident). Becky Ornelas DO have personally reviewed and interpreted this examination/study. > Interpreting Provider: Becky Oliveira DO on 02/15/2023 3:51 PM Narrative 02/15/2023 3:51 PM NURSING TECHN EXAMINATIONS: ??BILATERAL DIGITAL SCREENING MAMMOGRAM AND BILATERAL BREAST TOMOSYNTHESIS WITH CAD LOCATION: [facility] EXAM DATE: ??02/15/2023 HISTORY: ??Baseline screening mammogram. [...] screening mammography. For further information, please call [phone]. COMPARISON: No prior. This is her baseline [...] calcifications. Jaden Thakur DO MAMMO ORDERABLES * XR PELVIS W LEFT HIP 2VW (02/03/2023 7:16 PM NURSING TECHN) Only the most recent of2 resultswithin the time period is included. Anatomical Region Laterality Modality Pelvis Radiographic Irene ging 02/03/2023 7:27 PM NURSING TECHN Impressions 02/04/2023 6:49 PM NURSING TECHN IMPRESSION: No acute fracture or dislocation identified. Report dictated by Kumar Castaneda MD, (anesthesia resident). [employer]Alexx have personally reviewed and interpreted this examination/study. > Interpreting Provider: Alexx Lopez on 02/04/2023 6:49 PM Narrative 02/04/2023 6:49 PM NURSING TECHN PROCEDURE: ??XR PELVIS W LEFT HIP 2VW, DATE/TIME OF EXAM: ??02/03/2023 7:17 PM, LOCATION ??[facility] INDICATION: M25.552: Left hip pain ADDITIONAL CLINICAL INFORMATION: Ordering Provider Reason For Exam: ??fx COMPARISON: None. FINDINGS: Bilateral femoral heads are well-seated within their respective acetabula. The joint spaces are preserved. There is no left hip fracture. There is no diastasis of the sacroiliac joints of the pubic symphysis. Procedure Note Alexx Lopez MD - 02/04/2023 PROCEDURE: XR PELVIS W LEFT HIP 2VW, DATE/TIME OF EXAM: 37:17 PM, LOCATION [facility] INDICATION: M25.552: Left hip pain ADDITIONAL CLINICAL INFORMATION: Ordering Provider Reason For Exam: fx COMPARISON: None. FINDINGS: Bilateral femoral heads are well-seated within their respectiveacetabula. The joint spaces are preserved. There is no left hip fracture. There isno diastasis of the sacroiliac joints of the pubic symphysis. IMPRESSION: No acute fracture or dislocation identified. Report dictated by Kumar Castaneda MD, (anesthesia resident). [employer] have personally reviewed and interpreted this examination/study. > Interpreting Provider: Alexx Lopez on 02/04/2023 6:49 PM Jerald Haley MD DIAGNOSTIC IMAGING ORDERABLES * (ABNORMAL) URINALYSIS W/MICROSCOPIC NO CULTURE (02/03/2023 6:11 PM NURSING TECHN) Color UA Straw Straw, Yellow 02/03/2023 6:23 PM [facility] Clarity UA Slt Cloudy(A) Clear 02/03/2023 6:23 PM NURSING TECHN [facility] Specific [place] UA 1.013 1.005 - 1.030 02/03/2023 6:23 PM [facility] pH UA 6.0 5.0 - 8.0 pH 02/03/2023 6:23 PM [facility] Protein UA Negative Negative 02/03/2023 6:23 PM [facility] Glucose UA Negative Negative 02/03/2023 6:23 PM [facility] Ketone UA Negative Negative 02/03/2023 6:23 PM NURSING TECHN [facility] Bilirubin UA Negative Negative 02/03/2023 6:23 PM [facility] Blood UA 1+(A) Negative 02/03/2023 6:23 PM [facility] Nitrite UA Negative Negative 02/03/2023 6:23 PM [facility] Leukocyte Esterase Negative Negative 02/03/2023 6:23 PM [facility] Urobilinogen UA Negative Negative mg/dL 02/03/2023 6:23 PM [facility] RBC UA 6-10(A) None Seen, 0-2, 3-5 /HPF 02/03/2023 6:23 PM [facility] WBC UA 0-5 None Seen, 0-5 /HPF 02/03/2023 6:23 PM [facility] Bacteria UA Trace(A) None /HPF 02/03/2023 6:23 PM [facility] Squamous Epithelial Cells UA 3-5 None Seen, 0-2, 3-5 /HPF 02/03/2023 6:23 PM [facility] Mucus UA 1+ /LPF 02/03/2023 6:23 PM [facility] Urine URINE SPECIMEN OBTAINED BY CLEAN CATCH PROCEDURE / Unknown Collection / Unknown 02/03/2023 6:11 PM NURSING TECHN 02/03/2023 6:13 PM NURSING TECHN Narrative [facility] - 02/03/2023 6:23 PM NURSING TECHN Mary Leos PA-C LAB - URINALYSIS O RDERABLES [facility] [address] [place] [phone], [facility] [phone] * (ABNORMAL) C-REACTIVE PROTEIN (02/03/2023 5:48 PM NURSING TECHN) Only the most recent of3 resultswithin the time period is included. C-Reactive Protein 1.5(H) <=0.5 mg/dL 02/03/2023 6:27 PM [facility] Blood BLOOD SPECIMEN / Unknown Venipuncture / Unknown 02/03/2023 5:48 PM NURSING TECHN 02/03/2023 5:56 PM NURSING TECHN Mary Leos PA-C LAB - CHEMISTRY OR DERABLES [facility] [address] [place] [address], [facility] [phone] * (ABNORMAL) COMPREHENSIVE METABOLIC PANEL (02/03/2023 5:48 PM NURSING TECHN) Only the most recent of12 resultswithin the time period is included. BUN 16 7 - 26 mg/dL 02/03/2023 6:39 PM [facility] Creatinine 0.77 0.56 - 0.96 mg/dL 02/03/2023 6:39 PM [facility] Sodium 141 136 - 145 mmol/L 02/03/2023 6:39 PM [facility] Potassium 4.4 3.5 - 4.5 mmol/L 02/03/2023 6:39 PM [facility] Comment:Hemolysis detected i n this specimen. Hemolysis may cause false elevations in potassium leading to pseudohyperkalemia or masked hypokalemia. Recommend repeat testing if clinically indicated. Chloride 109(H) 98 - 107 mmol/L 02/03/2023 6:39 PM [facility] CO2 21(L) 22 - 29 mmol/L 02/03/2023 6:39 PM [facility] Glucose 101 70 - 115 mg/dL 02/03/2023 6:39 PM [facility] Calcium 8.7 8.4 - 10.2 mg/dL 02/03/2023 6:39 PM [facility] Protein Total 7.1 6.0 - 8.3 g/dL 02/03/2023 6:39 PM [facility] Comment:Hemolysis detected i n this specimen. Hemolysis is known to cause elevations in this analyte. Caution should be exercised in the interpretation of this result. Recommend repeat testing if clinically indicated. Albumin 2.9(L) 3.4 - 5.0 g/dL 02/03/2023 6:39 PM [facility] Bilirubin Total 0.1(L) 0.2 - 1.2 mg/dL 02/03/2023 6:39 PM [facility] Alkaline Phosphatase 79 40 - 150 U/L 02/03/2023 6:39 PM [facility] ALT 23 5 - 55 U/L 02/03/2023 6:39 PM [facility] AST 24 5 - 34 U/L 02/03/2023 6:39 PM [facility] Comment:Hemolysis detected i n this specimen. Hemolysis is known to cause elevations in this analyte. Caution should be exercised in the interpretation of this result. Recommend repeat testing if clinically indicated. Anion Gap 11 6 - 16 02/03/2023 6:39 PM [facility] BUN/Creatinine Ratio 21 7 - 23 01/11 6:39 PM [facility] Osmolality Calculated 293 275 - 295 mOsm/kg 02/03/2023 6:39 PM [facility] Albumin/Globulin Ratio 0.7(L) 1.1 - 2.3 6:39 PM [facility] eGFR by CKD-EPI >90 >=90 mL/min/1. 73 m2 02/03/2023 6:39 PM [facility] Blood BLOOD SPECIMEN / Unknown Venipuncture / Unknown 02/03/2023 5:48 PM NURSING TECHN 02/03/2023 5:58 PM NURSING TECHN Mary Leos PA-C LAB - CHEMISTRY OR DERABLES Performing Organization Address City/State/[facility] Co de Phone Number [facility] [address] [place] [address], [facility] [phone] * HCG BETA BLOOD QUANTITATIVE (02/03/2023 5:48 PM NURSING TECHN) Only the most recent of2 resultswithin the time period is included. Beta-hCG Total Quantitative <3 mIU/mL 02/03/2023 6:37 PM [facility] Comment: HCG Numeric Result Interpretation: ? Non- Females: ? < 5 mIU/mL ? Post-Menopausal Females: ??< 7 mIU/mL ? This assay is cleared for use in the early detection of only. It is not approved for any other uses such as tumor marker screening, tumor marker monitoring, etc. and should not be used for any other purposes. Blood BLOOD SPECIMEN / Unknown Venipuncture / Unknown 02/03/2023 5:48 PM NURSING TECHN 02/03/2023 5:58 PM NURSING TECHN Mary Leos PA-C LAB - CHEMISTRY OR DERABLES [facility] [address] [place] [address], [facility] [phone] * (ABNORMAL) CBC W AUTO DIFFERENTIAL (01/11/2023 4:26 AM T) Only the most recent of42 resultswithin the time period is included. WBC 10.0 3.5 - 10.5 10? 3 /uL 01/11/2023 5:21 AM [facility] RBC 3.75(L) 3.80 - 5.20 10? 6 /uL 01/11/2023 5:21 AM [facility] Hemoglobin 10.8(L) 12.0 - 15.6 g/dL 01/11/2023 5:21 AM [facility] Hematocrit 34.2(L) 35.0 - 45.0 % 01/11/2023 5:21 AM [facility] MCV 91.2 80.7 - 98.3 fL 01/11/2023 5:21 AM [facility] MCH 28.8 26.7 - 34.0 pg 01/11/2023 5:21 AM [facility] MCHC 31.6 30.8 - 35.9 g/dL 01/11/2023 5:21 AM [facility] RDW-SD 52.9(H) 36.0 - 50.0 fL 01/11/2023 5:21 AM [facility] RDW-CV 15.8(H) 11.2 - 14.8 % 01/11/2023 5:21 AM [facility] Platelet Count 298 150 - 400 10? 3 /uL 01/11/2023 5:21 AM [facility] MPV 10.0 9.4 - 12.9 fL 01/11/2023 5:21 AM [facility] nRBC Absolute 0.00 0 10? 3 /uL 01/11/2023 5:21 AM [facility] nRBC Auto 0.0 0 /100 WBC 01/11/2023 5:21 AM [facility] Neutrophils % 81.5(H) 35.0 - 70.0 % 01/11/2023 5:21 AM [facility] Lymphocytes % 10.7(L) 20.0 - 43.0 % 01/11/2023 5:21 AM [facility] Monocytes % 7.2 5.0 - 13.0 % 01/11/2023 5:21 AM [facility] Eosinophils % 0.0 0.0 - 6.0 % 01/11/2023 5:21 AM [facility] Basophil % 0.3 0.0 - 2.0 % 01/11/2023 5:21 AM [facility] Neutrophils Absolute 8.17(H) 1.60 - 7.00 10? 3 /uL 01/11/2023 5:21 AM [facility] Lymphocyte Absolute 1.07(L) 1.10 - 3.90 10? 3 /uL 01/11/2023 5:21 AM [facility] Monocytes Absolute 0.72 0.26 - 1.07 10? 3 /uL 01/11/2023 5:21 AM [facility] Eosinophils Absolute 0.00 0.00 - 0.47 10? 3 /uL 01/11/2023 5:21 AM [facility] Basophils Absolute 0.03 0.00 - 0.08 10? 3 /uL 01/11/2023 5:21 AM [facility] Immature Granulocytes % 0.3 0.0 - 1.0 % 01/11/2023 5:21 AM [facility] Immature Granulocytes Absolute 0.03 01/11/2023 5:21 AM [facility] Blood BLOOD SPECIMEN / Unknown Venipuncture / Unknown 01/11/2023 4:26 AM CDT 01/11/2023 4:35 AM CDT Jazz Martin MD LAB - HEMATOLOGY ORD ERABLES [facility] [address] [place] [address], [facility] [phone] * (ABNORMAL) BASIC METABOLIC PANEL (CALCIUM TOTAL) (01/11/2023 4:[address] [facility]) Only the most recent of41 resultswithin the time period is included. BUN 10 7 - 26 mg/dL 01/11/2023 5:00 AM [facility] Creatinine 0.46(L) 0.56 - 0.96 mg/dL 01/11/2023 5:00 AM [facility] Sodium 139 136 - 145 mmol/L 01/11/2023 5:00 AM [facility] Potassium 4.1 3.5 - 4.5 mmol/L 01/11/2023 5:00 AM [facility] Chloride 107 98 - 107 mmol/L 01/11/2023 5:00 AM [facility] CO2 24 22 - 29 mmol/L 01/11/2023 5:00 AM [facility] Glucose 133(H) 70 - 115 mg/dL 01/11/2023 5:00 AM [facility] Calcium 8.8 8.4 - 10.2 mg/dL 01/11/2023 5:00 AM [facility] Anion Gap 8 6 - 16 01/11/2023 5:00 AM [facility] BUN/Creatinine Ratio 22 7 - 23 01/11/2023 5:00 AM [facility] Osmolality Calculated 289 275 - 295 mOsm/kg 01/11/2023 5:00 AM [facility] eGFR by CKD-EPI >90 >=90 mL/min/1.7 3 m2 01/11/2023 5:00 AM [facility] Blood BLOOD SPECIMEN / Unknown Venipuncture / Unknown 01/11/2023 4:26 AM CDT 01/11/2023 4:35 AM T Jazz Martin MD LAB - CHEMISTRY BIBIANA BLACKMAN [facility] Organization Address City/State/ZIP Co de Phone Number [facility] [address] [place] [address] [phone] * IV PLACEMENT PERFORMABLE (01/10/2023 12:48 PM CDT) Narrative Lurdes Malave APRN-CRNA - 01/10/2023 12:48 PM CDT Lurdes Malave APRN-CRNA ? 01/10/2023 12:48 PM Peripheral IV Line Placement: Patient Location: ??OR Procedure: IV start (57826). Procedure Section: ?? Skin Prep: alcohol. Orientation: right Location: foot Catheter Gauge: 20 Number of Attempts: 2. Procedure Tolerance: performed while patient under general anesthesia. Staff Section ? Anesthesia Provider: Ambrocio Leal II, MD, Performed the procedure Ambrocio Leal II, MD GENERAL ANESTHESIA ORDERABLES * ETT LINE PERFORMABLE (01/10/2023 12:47 PM CDT) Narrative Lurdes Malave APRN-CRNA - 01/10/2023 12:47 PM CDT Lurdes Malave APRN-CRNA ? 01/10/2023 12:48 PM Endotracheal Tube Placement: ? Patient Location: OR. Intubation Event Date/Time: ??01/10/2023 12:14 PM Procedure: intubation ([id number]). Procedure Section: ?? Sedation: under general anesthesia. Indications for Airway Management: ??anesthesia Procedure pretreatments used? ??No Induction: standard IV Patient Position: ??sniffing Mask Ventilation: easy. Blade Type: Milana Blade Size: 3 Laryngoscopy View: grade 1 (full cords) Intubation Adjuncts: stylet Tube: endotracheal tube Tube type: cuff - inflated Tube Size (MM): 7 Depth of Insertion (CM): 22 Measured From: lips Cuff volume (mL): ??7 Cuff Inflated With: air Number of Attempts: 1. Placement Verified By: direct visualization, bilateral breath sounds, chest auscultation and CO2 monitor CXR Findings: ETT in proper place. Tube secured with: ??adhesive tape. Dentition unchanged? ??Yes Difficult Airway? ??No. Procedure Start Time: 01/10/2023 12:14 PM. Staff Section ? Anesthesia Provider: Ananda, Lurdes E, CAR HOP-DELIVERY DIRECTOR, Performed the procedure ? Provider #1: Ambrocio Leal II, MD. Ambrocio Leal II, MD GENERAL ANESTHESIA ORDERABLES * (ABNORMAL) PTT [facility] (01/10/2023 11:30 AM CDT) Only the most recent of63 resultswithin the time period is included. APTT 22.2(L) 23.0 - 38.4 Seconds 01/10/2023 12:20 PM CDT [facility] Comment:Suggested therapeuti c range for full dose I.V. unfractionated heparin therapy for venous thromboembolism is 71 to 109 seconds. Blood BLOOD SPECIMEN / Unknown Venipuncture / Unknown 01/10/2023 11:30 AM CDT 01/10/2023 11:56 AM CDT Jazz Martin MD LAB - COAGULATION OR DERABLES Performing Organization Address [facility] Co de Phone Number [address] [address], [facility] [phone] * (ABNORMAL) PT-INR [facility] (01/10/2023 11:30 AM CDT) Only the most recent of29 resultswithin the time period is included. PT 11.9(L) 12.1 - 14.8 Seconds 01/10/2023 12:20 PM CDT [facility] INR 0.9 See Comment 01/10/2023 12:20 PM CDT [facility] Comment:The suggested therap eutic range for standard coumadin (warfarin) therapy is an INR of 2.0-3.0. For high-risk patients (Mechanical Mitral Valve Prosthesis, etc.), the suggested prophylactic therapeutic range is an INR of 2.5-3.5. Blood BLOOD SPECIMEN / Unknown Venipuncture / Unknown 01/10/2023 11:30 AM CDT 01/10/2023 11:56 AM CDT Nutressa A Torres CAR HOP-ORE [facility]CHER LAB - COAGULA TION ORDERABLES Performing Organization Address City/[facility]/ZIP Co de Phone Number [facility] [address] [place] [phone], [facility] [phone] * TYPE + SCREEN PANEL (01/10/2023 11:30 AM CDT) Only the most recent of7 resultswithin the time period is included. Antibody Screen NEG 12:47 PM CDT [facility] ABO Rh B POS 01/10/2023 12:47 PM CDT [facility] Blood Bank BLOOD SPECIMEN / Unknown Venipuncture / Unknown 01/10/2023 11:30 AM CDT 01/10/2023 11:46 AM CDT Galina Torres APRN-ORE PUNCHER LAB - BLOOD B ANK ORDERABLES [facility] [address] [place] [phone], [facility] [phone] * HCG URINE QUALITATIVE - POCT (IP) INTERFACED (01/10/2023 10:30 AM CDT) Only the most recent of5 resultswithin the time period is included. HCG Qual Urine Negative Negative 01/10/2023 10:36 AM CDT [facility] Urine URINE / Unknown 01/10/2023 1 0:30 AM CDT 01/10/2023 10:36 AM CDT Jazz Martin MD LAB - POINT OF CARE ORDERABLES [address] [address], [place] [phone] * HCG URINE QUAL POCT NOTIFICATION (01/10/2023 10:09 AM CDT) Only the most recent of5 resultswithin the time period is included. Comment Notification Label Only - See Separate Report 01/10/2023 11:30 AM CDT [facility] Urine URINE / Unknown 01/10/2023 1 0:09 AM CDT 01/10/2023 10:10 AM CDT Galina Torres CAR HOP-ORE PUNCHER LAB - URINALY SIS ORDERABLES [facility] [address] [place] [phone], [facility] [phone] * ECHO SARAH COMPLETE (01/05/2023 2:33 PM CDT) Only the most recent of2 resultswithin the time period is included. BSA 2.12 m2 SSM CV FUJ I PACS Sinus of Valsalva 2.30 cm SS M CV FUJI PACS ST junction 2.048 cm SSM CV F UJI PACS Sinus of valsalva index 1.08 cm/m2 SSM CV FUJI PACS ST junction index 0.97 cm/m2 SS M CV FUJI PACS LVOT stroke vol 54.54 mL SSM CV FUJI PACS LVOT stroke vol index 25.73 mL/m2 SSM CV FUJI PACS AV envelope time 253 ms SSM CV FUJI PACS LVOT envelope time 259 ms S SM CV FUJI PACS LVOT diam 2.3 cm SSM CV FUJ I PACS LVOT area 3.99 cm2 SSM CV FUJ I PACS LVOT pk arianna 0.81 m/s SSM CV F UJI PACS LVOT mn arianna 0.53 m/s SSM CV F UJI PACS LVOT mn grad 1.3 mmHg SSM CV FUJI PACS AV mn grad 4 mmHg SSM CV FU JI PACS AV pk grad 8 mmHg SSM CV FU JI PACS AV mn arianna 0.90 m/s SSM CV FUJ I PACS AV pk arianna 1.42 m/s SSM CV FUJ I PACS AV VTI 22.662 cm SSM CV FUJ I PACS LVOT pk grad 2.599 mmHg SSM CV FUJI PACS LVOT VTI 13.678 cm SSM CV FUJ I PACS AV area cont VTI 2.4 cm2 SSM CV FUJI PACS AV area pk arianna 2.3 cm2 SSM C V FUJI PACS AV Doppler arianna index pk arianna 0.569 SSM CV FUJI PACS Dimensionless Index 0.604 SSM CV FUJI PACS Anatomical Region Laterality Modality Ultrasound Narrative 01/09/2023 9:05 PM CDT ?Left??Ventricle: Left ventricle size is normal. Normal wall thickness. Normal systolic function with a visually estimated EF of 55 - 60%. ?Right??Ventricle: Right ventricle size is normal. Normal systolic function. ?Aortic??Valve: Valve structure is trileaflet. Mildly thickened right leaflet. No restricted motion. No regurgitation. No stenosis. Previously visualized aortic valve mass no longer present. Left Ventricle Left ventricle size is normal. Normal wall thickness. Normal systolic function with a visually estimated EF of 55 - 60%. Right Ventricle Right ventricle size is normal. Normal systolic function. Left Atrium Left atrium size is normal. Normal appendage flow velocity. No thrombus present in the left atrial appendage (MADELEINE). Right Atrium Right atrium size is normal. Aortic Valve Valve structure is trileaflet. Mildly thickened right leaflet. No restricted motion. No regurgitation. No stenosis. Ascending Aorta Normal sized sinus of Valsalva (aortic root) and ascending aorta. No aortic atherosclerosis. Pericardium The pericardium is normal. No pericardial effusion. Study Details A limited echo was performed using limited 2D, color flow Doppler and limited spectral Doppler. During the study the esophageal, transgastric and descending thoracic views were captured. Patient declined ultrasound contrast. The probe was inserted by the compatibility test engineer. There was minimal probe insertion difficulty. Moderate sedation was administered. Sedation was managed by the compatibility test engineer. Lidocaine administered during the study. 7 mg of midazolam administered during the study. 175 mcg of fentanyl administered during the study. There were no complications during the procedure. Prior Study Prior SARAH study available for comparison. Prior study date: 10/23/2022. Changes noted compared to prior study. 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 Tr Michael MD ECHO CUPID * VAS RIGHT ARTERIAL DUPLEX LE (12/26/2022 11:21 AM CDT) Anatomical Region Laterality Modality Lower Extremity Intravascular Ul trasound 12/26/2022 10:0 8 AM CDT Narrative Procedure Note Ulises Ahumada MD - 12/26/2022 Valdez Clay MD VASCULAR LAB ORDER NISSA * VAS ARTERIAL ANKLE ARM INDEX (12/26/2022 11:21 AM CDT) Anatomical Region Laterality Modality Ankle / Foot, Upper Extremity In travascular Ultrasound 12/26/2022 10:3 9 AM CDT Narrative Procedure Note Ulises Ahumada MD - 12/26/2022 Valdez Clay MD VASCULAR LAB ORDER NISSA * (ABNORMAL) PT-INR (12/14/2022 6:58 AM CDT) Only the most recent of22 resultswithin the time period is included. PT 24.2(H) 12.1 - 14.8 sec 12/14/2022 8:56 AM CDT [facility] INR 2.3(H) 0.9 - 1.1 12/14/2022 8:56 AM CDT [facility] Blood BLOOD SPECIMEN / Unknown Lab Venipuncture / Unknown 12/14/2022 6:58 AM CDT 12/14/2022 8:40 AM CDT Narrative [facility] - 12/14/2022 8:56 AM CDT Conventional Warfarin Anticoagulant Therapy: INR Reference Range: ??2.0-3.0 Intensive Warfarin Anticoagulant Therapy: INR Reference Range: ? 2.5-3.5 Jaskaran Pryor MD LAB - COAGULATION O RDERABLES [facility] [address] [place] [address] * (ABNORMAL) CBC W/O DIFFERENTIAL (12/14/2022 6:58 AM CDT) Only the most recent of13 resultswithin the time period is included. WBC 11.3(H) 4.4 - 10.7 x10E9/L 12/14/2022 8:50 AM CDT [facility] RBC 4.23 3.80 - 5.20 x10E12/L 12/14/2022 8:50 AM CDT [facility] Hemoglobin 12.5 12.0 - 15.6 gm/dL 12/14/2022 8:50 AM CDT [facility] Hematocrit 39.1 35.9 - 45.5 % 12/14/2022 8:50 AM CDT [facility] MCV 92.4 80.7 - 98.3 fl 12/14/2022 8:50 AM CDT [facility] MCH 29.6 26.7 - 34.0 pg 12/14/2022 8:50 AM CDT [facility] MCHC 32.0 30.8 - 35.9 gm/dL 12/14/2022 8:50 AM CDT [facility] Platelet Count 460(H) 153 - 416 x10E9/L 12/14/2022 8:50 AM CDT [facility] RDW-CV 15.1(H) 12.1 - 14.9 % 12/14/2022 8:50 AM CDT [facility] MPV 10.9 9.4 - 12.9 fl 12/14/2022 8:50 AM CDT [facility] Blood BLOOD SPECIMEN / Unknown Lab Venipuncture / Unknown 12/14/2022 6:58 AM CDT 12/14/2022 8:40 AM CDT Jaskaran Pryor MD LAB - HEMATOLOGY OR DERABLES Performing Organization Address City/State/[facility] Co de Phone Number [facility] [address] [place] [address] * (ABNORMAL) URINE MICROSCOPIC ONLY REFLEX TO CULTURE (12/06/2022 1:55 PM CDT) Only the most recent of3 resultswithin the time period is included. Reflex Status Culture to follow 12/06/2022 2:47 PM CDT [facility] RBC UA 21-50(A) 0 - 5 # /hpf 12/06/2022 2:47 PM CDT [facility] WBC UA >100(A) 0 - 5 # /hpf 12/06/2022 2:47 PM CDT [facility] WBC Clumps UA Many(A) None Seen /HPF 12/06/2022 2:47 PM CDT [facility] Bacteria UA 3+(A) None Seen 12/06/2022 2:47 PM CDT [facility] Squamous Epithelial Cells 0-2 0 - 5 /hpf 12/06/2022 2:47 PM CDT [facility] Mucus UA 4+ /LPF 12/06/2022 2:47 PM CDT [facility] Calcium Oxalate Crystals Occasional( A) None seen /HPF 12/06/2022 2:47 PM CDT [facility] Urine URINE SPECIMEN OBTAINED BY CLEAN CATCH PROCEDURE / Unknown Collection / Unknown 12/06/2022 1:55 PM CDT 12/06/2022 2:07 PM CDT [facility] - 12/06/2022 2:47 PM CDT Yamileth Frias MD LAB - URINALYSIS ORD ERABLES [facility] [address] [place] [address] * (ABNORMAL) URINALYSIS REFLEX MICROSCOPIC REFLEX CULTURE (12/06/2022 1:55 PM CDT) Only the most recent of5 resultswithin the time period is included. Color UA Nae(A) Straw, Yellow 12/06/2022 3:20 PM CDT [facility] Clarity UA Turbid(A) Clear 12/06/2022 3:20 PM CDT [facility] Glucose UA Negative Negative 12/06/2022 3:20 PM CDT [facility] Bilirubin UA Negative Negative 12/06/2022 3:20 PM CDT [facility] Ketone UA Negative Negative 12/06/2022 3:20 PM CDT [facility] Specific [place] UA 1.024 1.005 - 1.030 12/06/2022 3:20 PM CDT [facility] Blood UA 2+(A) Negative 12/06/2022 3:20 PM CDT [facility] pH UA 5.0 5.0 - 8.0 pH 12/06/2022 3:20 PM CDT [facility] Protein UA 2+(A) Negative 12/06/2022 3:20 PM CDT [facility] Urobilinogen UA 4.0(A) Negative mg/dL 12/06/2022 3:20 PM CDT [facility] Nitrite UA Negative Negative 12/06/2022 3:20 PM CDT [facility] Leukocyte UA 3+(A) Negative 12/06/2022 3:20 PM CDT [facility] Urine Microscopy Urine microscopy to follow 12/06/2022 3:20 PM CDT [facility] Reflex Status Culture to follow 12/06/2022 3:20 PM CDT [facility] Urine URINE SPECIMEN OBTAINED BY CLEAN CATCH PROCEDURE / Unknown Collection / Unknown 12/06/2022 1:55 PM CDT 12/06/2022 2:07 PM CDT Narrative [facility] - 12/06/2022 3:20 PM CDT Yamileth Frias MD LAB - URINALYSIS ORD ERABLES [facility] [address] [place] [address] * (ABNORMAL) CULTURE URINE (12/06/2022 1:55 PM CDT) Only the most recent of5 resultswithin the time period is included. [facility] Culture Urine >100,000 CFU/mL Escherichia coli(A) ROSELIA 12/08/2022 5:04 AM CDT [facility] MICROBIOLOGY Urine URINE SPECIMEN OBTAINED BY CLEAN CATCH PROCEDURE / Unknown Collection / Unknown 12/06/2022 1:55 PM CDT 12/06/2022 2:07 PM CDT [facility] MICROBIOLOGY - 12/08/2022 5:04 AM CDT Organism Antibiotic Method Susceptibility Escherichia coli Amikacin ROSELIA <=2 ug/mL: Susceptible Escherichia coli Ampicillin ROSELIA <=2 ug/mL: Susceptible Escherichia coli Ampicillin-sulbactam ROSELIA <=2 ug/mL: Susceptible Escherichia coli Cefazolin ROSELIA <=4 ug/mL: See Comment* Escherichia coli Cefazolin-Urine (uncomplicated infections ONLY) ROSELIA <=4 ug/mL: Susceptible Escherichia coli Cefepime ROSELIA <=1 ug/mL: Susceptible Escherichia coli Ceftriaxone ROSELIA <=1 ug/mL: Susceptible Escherichia coli Ciprofloxacin ROSELIA <=0.25 ug/mL: Susceptible Escherichia coli Extended-Spectrum Beta-Lactamase ROSELIA NEG ug/mL: Neg Escherichia coli Gentamicin ROSELIA <=1 ug/mL: Susceptible Escherichia coli Meropenem ROSELIA <=0.25 ug/mL: Susceptible Escherichia coli Nitrofurantoin ROSELIA <=16 ug/mL: Susceptible Escherichia coli Piperacillin-tazobactam ROSELIA <=4 ug/mL: Susceptible Escherichia coli Tobramycin ROSELIA <=1 ug/mL: Susceptible Escherichia coli Trimethoprim-sulfame thoxaz ole ROSELIA <=20 ug/mL: Susceptible Comment: *Cefazolin ROSELIA of </=4 cannot distinguish between susceptible or intermediate for systemic breakpoints. If further defined interpretation is needed, call Microbiology and a disk diffusion test will be performed. Urine breakpoints for cefazolin should only be used when treating uncomplicated UTIs including men and women without urologic abnormality, kidney stones, stents, nephrostomy tubes, signs/symptoms of systemic illness, or pelvic/perineal pain in men. Cefazolin results can be used to predict susceptibility to oral cephalosporins - cephalexin, cefprozil, cefaclor, cefuroxime, cefdinir, and cefpodoxime. For complicated UTIs, use alternative cefazolin susceptibility result above. Yamileth Frias MD LAB - MICROBIOLOGY O RDERABLES [facility] MICROBIOLOGY [address] [facility] [place] [address], [facility] [phone] * [place] SWALLOWING FUNCTION STUDY (12/06/2022 10:26 AM CDT) Only the most recent of2 resultswithin the time period is included. Anatomical Region Laterality Modality Chest Radiographic Irene ging 12/07/2022 9:56 AM CDT Narrative 12/07/2022 3:49 PM CDT PROCEDURE: ??FL SWALLOWING FUNCTION STUDY, DATE/TIME OF EXAM: ??12/06/2022 10:27 AM, LOCATION ??[facility] INDICATION: dysphagia COMPARISON: None. FLUOROSCOPY DOSE: ??5.66 mGy Reference air kerma (ka,r). FLUOROSCOPY TIME: ??1051 minutes TECHNIQUE: Modified barium swallow fluoroscopy performed in conjunction with speech pathology staff. The speech pathologist administered varying thickness barium liquids and solids under direct Cine fluoroscopy. FINDINGS/IMPRESSION: Trace penetration with thin liquids. No evidence of aspiration. Report dictated by Walker Prakash DO (anesthesia resident). Freddy Ornelas MD have personally reviewed and interpreted this examination/study. > Interpreting Provider: Freddy Muhammad MD on 12/07/2022 3:49 PM Procedure Note Freddy Muhammad MD - 12/07/2022 PROCEDURE: FL SWALLOWING FUNCTION STUDY, DATE/TIME OF EXAM: 12/06/2022 10:27 AM, LOCATION [facility] INDICATION: dysphagia COMPARISON: None. FLUOROSCOPY DOSE: 5.66 mGy Reference air kerma (ka,r). FLUOROSCOPY TIME: 1051 minutes TECHNIQUE: Modified barium swallow fluoroscopy performed in conjunction with speech pathology staff. The speech pathologist administered varying thickness barium liquids and solids under direct Cine fluoroscopy. FINDINGS/IMPRESSION: Trace penetration with thin liquids. No evidence of aspiration. Report dictated by Walker Prakash DO (anesthesia resident). Freddy Ornelas MD have personally reviewed and interpreted this examination/study. > Interpreting Provider: Freddy Muhammad MD on 12/07/2022 3:49 PM Yamileth Frias MD FLUOROSCOPY ORDERABL ES * XR HIPS BILATERAL 2VW (11/26/2022 12:50 PM CDT) Anatomical Region Laterality Modality Lower Extremity Radiographic Irene ging 11/26/2022 1:40 PM CDT Narrative 11/26/2022 1:46 PM CDT PROCEDURE: ??XR HIPS BILATERAL 2VW, DATE/TIME OF EXAM: ??11/26/2022 1:26 PM, LOCATION ??[facility] INDICATION: Pain Bilateral hips 2 view HISTORY: Bilateral pain and injury The visualized osseous structures are grossly normal without fracture or dislocation. The soft tissues are normal. > Interpreting Provider: Edgardo Pedroza MD on 11/26/2022 1:46 PM Procedure Note Edgardo Pedroza MD - 11/26/2022 PROCEDURE: XR HIPS BILATERAL 2VW, DATE/TIME OF EXAM: 11/26/2022 1:26PM, LOCATION [facility] INDICATION: Pain Bilateral hips 2 view HISTORY: Bilateral pain and injury The visualized osseous structures are grossly normal without fracture or dislocation. The soft tissues are normal. > Interpreting Provider: Edgardo Pedroza MD on 11/26/2022 1:46 PM Loy Dawson MD DIAGNOSTIC IMAGING O RDERABLES * APHERESIS/TRANSFUSION ORDER (11/22/2022 2:11 PM CDT) Narrative 11/22/2022 2:11 PM CDT Ordered by an unspecified provider. Scanned Document NURSING - VITAL SIGN S AND ASSESSMENT * CARDIAC EKG ORDER (11/22/2022 2:11 PM CDT) Narrative 11/22/2022 2:11 PM CDT Ordered by an unspecified provider. Scanned Document CARDIAC SERVICES ORD ERABLES * XR ABDOMEN KUB (11/19/2022 9:37 AM CDT) Only the most recent of2 resultswithin the time period is included. Anatomical Region Laterality Modality Abdomen Radiographic Irene ging 11/19/2022 9:42 AM CDT Narrative 11/19/2022 9:43 AM CDT Procedure: XR ABDOMEN KUB ??Exam Date: ??11/19/2022 9:38 AM ?? Location: ??[facility] Indication: abdominal fullness, reflux. Patient on peg tube feeding FINDINGS/IMPRESSION: Air is seen throughout the colonic structures. No dilated bowel loops are identified. There is no evidence to suggest obstruction. There is no gross free intraperitoneal air. There does appear to be a gastrostomy tube superimposing the stomach. > Interpreting Provider: Rebel Hernandez MD on 11/19/2022 9:43 AM Procedure Note Rebel Hernandez MD - 11/19/2022 Procedure: XR ABDOMEN KUB Exam Date: 11/19/2022 9:38 AM Location: [facility] Indication: abdominal fullness, reflux. Patient on peg tube feeding FINDINGS/IMPRESSION: Air is seen throughout the colonic structures. No dilated bowel loops are identified. There is no evidence to suggest obstruction. There is no gross free intraperitoneal air. There doesappear to be a gastrostomy tube superimposing the stomach. > Interpreting Provider: Rebel Hernandez MD on 11/19/2022 9:43 AM Marlee Bradley MD DIAGNOSTIC IMAGING O RDERABLES * PHOSPHORUS BLOOD (11/17/2022 2:02 AM CDT) Only the most recent of29 resultswithin the time period is included. [facility] Phosphorus 3.6 2.9 - 5.1 mg/dL 11/17/2022 3:10 AM [facility] Blood BLOOD SPECIMEN / Unknown Lab Venipuncture / Unknown 11/17/2022 2:02 AM CDT 11/17/2022 2:40 AM CDT Good Antunez MD LAB - CHEMISTRY [place] BLACK[facility] Organization Address City/State/ZIP Co de Phone Number [address] [address], [facility] [phone] * (ABNORMAL) HEPATIC FUNCTION PANEL (11/17/2022 2:02 AM CDT) Only the most recent of6 resultswithin the time period is included. [facility] Protein Total 7.0 6.0 - 8.3 g/dL 023 3:10 AM [facility] Albumin 2.8(L) 3.4 - 5.0 g/dL 11/17/2022 3:10 AM [facility] Bilirubin Total 0.4 0.2 - 1.2 mg/dL 10/2022 3:10 AM [facility] Bilirubin Conjugated 0.1 0.1 - 0.5 mg/dL 11/17/2022 3:10 AM [facility] Bilirubin Unconjugated 0.3 Unconjugated Bilirubin is a calculated value: Reference ranges have not been established. mg/dL 11/17/2022 3:10 AM [facility] Alkaline Phosphatase 94 40 - 150 U/L 11/17/2022 3:10 AM CDT [facility] ALT 257(H) 5 - 55 U/L 11/17/2022 3:10 AM CDT [facility] AST 138(H) 5 - 34 U/L 11/17/2022 3:10 AM CDT [facility] Albumin/Globulin Ratio 0.7(L) 1.1 - 2.3 11/17/2022 3:10 AM CDT [facility] Blood BLOOD SPECIMEN / Unknown Lab Venipuncture / Unknown 11/17/2022 2:02 AM CDT 11/17/2022 2:40 AM CDT Good Antunez MD LAB - CHEMISTRY [place] BLACKMAN [address] [address], [place] [phone] * MAGNESIUM BLOOD (11/17/2022 2:02 AM CDT) Only the most recent of29 resultswithin the time period is included. Magnesium 2.5 1.6 - 2.6 mg/dL 11/17/2022 3:10 AM CDT [facility] Blood BLOOD SPECIMEN / Unknown Lab Venipuncture / Unknown 11/17/2022 2:02 AM CDT 11/17/2022 2:40 AM CDT Good Antunez MD LAB - CHEMISTRY [place] BLACKMAN Performing Organization Address City/[facility]/ZIP Co de Phone Number [address] [address], [place] [phone] * CT ABDOMEN PELVIS W CONTRAST (11/16/2022 4:31 PM CDT) Only the most recent of4 resultswithin the time period is included. Anatomical Region Laterality Modality Abdomen, Pelvis Computed Tomogra phy 11/16/2022 8:26 PM CDT Impressions 11/17/2022 11:31 AM CDT Impression: 1.Interval resolution of the fluid collection adjacent to the gastrostomy tube. 2.Redemonstration of a fluid collection in the right groin, measuring 3.2 x 3.3 x 7.1 cm (TV x AP x CC), overall unchanged in size compared to prior study dated 11/09/2022. Mild mass effect on the right femoral artery and vein. No significant rim enhancement to suggest abscess. Previously seen gas locules within this collection appears to have resolved. > Dictated by Abdifatah Jean MD (anesthesia resident). I, Alexx Lopez have personally reviewed and interpreted this examination/study. > Interpreting Provider: Alexx Lopez on 11/17/2022 11:31 AM Narrative 11/17/2022 11:31 AM CDT PROCEDURE: ??CT ABDOMEN PELVIS W CONTRAST, DATE/TIME OF EXAM: ??11/16/2022 4:32 PM, LOCATION ??[facility] INDICATION: I33.0: Aortic valve vegetation ADDITIONAL CLINICAL INFORMATION: Ordering Provider Reason For Exam: ??abscess? COMPARISON: CT abdomen and pelvis from . TECHNIQUE: CT of the abdomen and pelvis was performed following the uneventful administration of 100 mL of Isovue 370 intravenous contrast according to standard protocol. Findings: Lower Chest: Mild dependent atelectatic changes are noted in the bilateral lung bases. Liver: Normal. Gallbladder and Bile Ducts: The gallbladder is absent. Spleen: Normal. Pancreas: Normal. Adrenals: Normal. Kidneys: Normal. Gastrointestinal: A gastrostomy tube is present. There is interval resolution of the previously noted fluid collection adjacent to the G-tube. Visualized loops of small and large bowel are unremarkable. Mesentery/Peritoneum/Retroperitoneum: Normal. Bladder: A Puentes catheter is noted in the urinary bladder. Reproductive Organs: The uterus is normal. Vasculature: No vascular abnormality is present. Bones: Bone windows demonstrate no suspicious lytic or blastic lesions. The visible osseous structures are intact. Soft tissues: There is redemonstration of fluid collection in the right groin, measuring 3.2 x 3.3 x 7.1 cm (TV x AP x CC), overall unchanged in size compared to prior study dated 11/09/2022. There is mild mass effect on the right femoral artery and vein. There is no significant rim enhancement to suggest abscess. Previously seen gas within this collection appears to have resolved. A few foci of gas elsewhere in the fat tissues of anterior abdominal wall, likely due to subcutaneous injections. Procedure Note Alexx Lopez MD - 11/17/2022 PROCEDURE: CT ABDOMEN PELVIS W CONTRAST, DATE/TIME OF EXAM: 34:32 PM, LOCATION [facility] INDICATION: I33.0: Aortic valve vegetation ADDITIONAL CLINICAL INFORMATION: Ordering Provider Reason For Exam: abscess? COMPARISON: CT abdomen and pelvis from . TECHNIQUE: CT of the abdomen and pelvis was performed following the uneventful administration of 100 mL of Isovue 370 intravenous contrast according to standard protocol. Findings: Lower Chest: Mild dependent atelectatic changes are noted in the bilateral lungbases. Liver: Normal. Gallbladder and Bile Ducts: The gallbladder is absent. Spleen: Normal. Pancreas: Normal. Adrenals: Normal. Kidneys: Normal. Gastrointestinal: A gastrostomy tube is present. There is interval resolution of the previously noted fluid collection adjacent to the G-tube. Visualizedloops of small and large bowel are unremarkable. Mesentery/Peritoneum/Retroperitoneum: Normal. Bladder: A Puentes catheter is noted in the urinary bladder. Reproductive Organs: The uterus is normal. Vasculature: No vascular abnormality is present. Bones: Bone windows demonstrate no suspicious lytic or blastic lesions. The visible osseous structures are intact. Soft tissues: There is redemonstration of fluid collection in the right groin,measuring 3.2 x 3.3 x 7.1 cm (TV x AP x CC), overall unchanged in size compared to prior study dated 11/09/2022. There is mild mass effect on the rightfemoral artery and vein. There is no significant rim enhancement to suggest abscess. Previously seen gas within this collection appears to have resolved. A few foci of gas elsewhere in the fat tissues of anterior abdominalwall, likely due to subcutaneous injections. Impression: 1.Interval resolution of the fluid collection adjacent to thegastrostomy tube. 2.Redemonstration of a fluid collection in the right groin, measuring 3.2x 3.3 x 7.1 cm (TV x AP x CC), overall unchanged in size compared to prior study dated 11/09/2022. Mild mass effect on the right femoral artery and vein. No significant rim enhancement to suggest abscess. Previously seen gas locules within this collection appears to have resolved. > Dictated by Abdifatah Jean MD (anesthesia resident). I, Alexx Lopez have personally reviewed and interpreted this examination/study. > Interpreting Provider: Alexx Lopez on 11/17/2022 11:31 AM Good Antunez MD CT ORDERABLES * (ABNORMAL) DIFFERENTIAL MANUAL (11/16/2022 2:17 AM CDT) Only the most recent of6 resultswithin the time period is included. WBC (corrected for NRBC) 7.3 10? 3 /uL 11/16/2022 4:29 AM [facility] Total Cell Count 100 11/17/19 23 4:29 AM [facility] Neutrophils Absolute Manual 4.60 1.60 - 7.00 10? 3 /uL 11/16/2022 4:29 AM [facility] Comment:(BANDS+SEGS) x WBC = NEUT # (ANC) Lymphocyte Absolute Manual 1.75 1.10 - 3.90 10? 3 /uL 11/16/2022 4:29 AM [facility] Monocytes Absolute Manual 0.80 0.26 - 1.07 10? 3 /uL 11/16/2022 4:29 AM [facility] Eosinophils Absolute Manual 0.15 0.00 - 0.47 10? 3 /uL 11/16/2022 4:29 AM [facility] Band % Manual 1 0 - 10 % 11/16/2022 4:29 AM [facility] Neutrophil % Manual 62 35 - 70 % 11/16/2022 4:29 AM [facility] Lymphocyte % Manual 24 20 - 43 % 11/16/2022 4:29 AM [facility] Monocytes % Manual 11 5 - 13 % 11/16/2022 4:29 AM [facility] Eosinophils % Manual 2 0 - 6 % 11/16/2022 4:29 AM [facility] Platelet Estimate Adequate Adequate 11/16/2022 4:29 AM [facility] Anisocytosis Occasional( A) None 11/16/2022 4:29 AM [facility] Polychromasia Few(A) None 11/16/2022 4:29 AM CDT [facility] Ovalocytes Occasional( A) None 11/16/2022 4:29 AM CDT [facility] Lyons Cells Occasional( A) None 11/16/2022 4:29 AM CDT [facility] Smudge Cells Rare(A) None 11/16/2022 4:29 AM CDT [facility] Blood BLOOD SPECIMEN / Unknown Lab Venipuncture / Unknown 11/16/2022 2:17 AM CDT 11/16/2022 3:01 AM CDT Good Antunez MD LAB - HEMATOLOGY ORD ERABLES [address] [address], [place] [phone] * GRAM STAIN (LAB ORDERED) (11/15/2022 12:27 PM CDT) Gram Stain No polymorphonuclear cells 11/15/2022 4:45 PM CDT [facility] Gram Stain No organisms seen 023 4:45 PM CDT [facility] Microbiology Collection / Unknown 11/15/2022 12:27 PM CDT 11/15/2022 12:27 PM CDT Good Antunez MD LAB - MICROBIOLOGY O RDERABLES [address] [address], [place] [phone] * HOLD SPECIMEN CSF (11/15/2022 12:25 PM CDT) Specimen Hold 11/15/2022 1:32 PM CDT [facility] Comment:The Hold Sample has been received in the lab and will be held for 30 days. Cerebral spinal fluid CEREBROSPINAL FLUID SPECIMEN / Unknown Collection / Unknown 11/15/2022 12:25 PM CDT 11/15/2022 12:25 PM CDT Good Antunez MD LAB - BODY FLUID ORD ERABLES [facility] [address] [place] [address], [facility] [phone] * MENINGITIS ENCEPHALITIS PCR PANEL CSF (11/15/2022 12:25 PM CDT) Listeria monocytogenes PCR Not Detected 11/17/2022 7:00 AM CDT [facility] Escherichia coli K1 PCR Not Detected 11/17/2022 7:00 AM CDT [facility] ([facility]) Haemophilus influenzae PCR Not Detected 11/17/2022 7:00 AM CDT [facility] ([facility]) Neisseria meningitidis PCR Not Detected 11/17/2022 7:00 AM CDT [facility] ([facility]) Streptococcus agalactiae PCR Not Detected 11/17/2022 7:00 AM CDT [facility] ([facility]) Streptococcus pneumoniae PCR Not Detected 11/17/2022 7:00 AM CDT [facility] ([facility]) Cytomegalovirus PCR Not Detected 11/17/2022 7:00 AM CDT [facility] ([facility]) Enterovirus PCR Not Detected 11/17/2022 7:00 AM CDT [facility] ([facility]) Herpes Simplex Virus 1 PCR Not Detected 11/17/2022 7:00 AM CDT [facility] ([facility]) Herpes Simplex Virus 2 PCR Not Detected 11/17/2022 7:00 AM CDT [facility] ([facility]) Human Herpesvirus 6 PCR Not Detected 11/17/2022 7:00 AM CDT [facility] ([facility]) Human parechovirus PCR Not Detected 11/17/2022 7:00 AM CDT [facility] ([facility]) Varicella zoster virus PCR Not Detected 11/17/2022 7:00 AM CDT [facility] ([facility]) Cryptococcus neoformans/gattii PCR Not Detected 11/17/2022 7:00 AM CDT [facility] ([facility]) Comment: INTERPRETIVE INFORMATION: Meningitis Encephalitis Panel by ?PCR The meningitis/encephalitis panel is NOT a replacement for CSF bacterial and/or fungal culture and Cryptococcal antigen testing for at-risk patients. Non-K1 E. coli serotypes and non-encapsulated strains of Neisseria meningitidis are NOT detected. The panel does NOT differentiate active from latent herpes virus infections. Test results should be interpreted in the context of host factors and other laboratory information. Performed By: [place] [address] Conveyor Technician: Boo Bond MD, PhD CLIA Number: [id number] Cerebral spinal fluid CEREBROSPINAL FLUID SPECIMEN / Unknown Collection / Unknown 11/15/2022 12:25 PM CDT 11/15/2022 12:25 PM CDT Good Antunez MD LAB - MICROBIOLOGY O DIONI Performing Organization Address [facility] Co de Phone Number [facility] ([facility]) [address] [place] [address] * CULTURE CSF+GRAM STAIN (11/15/2022 12:25 PM CDT) Culture No growth ROSELIA 11/22/2022 4:18 AM CDT [facility] Gram Stain No polymorphonuclear cells 11/22/2022 4:18 AM CDT [facility] Gram Stain No organisms seen 023 4:18 AM CDT [facility] Cerebral spinal fluid CEREBROSPINAL FLUID SPECIMEN / Unknown Collection / Unknown 11/15/2022 12:25 PM CDT 11/15/2022 12:25 PM CDT Good Antunez MD LAB - MICROBIOLOGY O DIONI Performing Organization Address [facility] Co de Phone Number [facility] [address] [phone] * CELL COUNT W DIFFERENTIAL CSF (11/15/2022 12:25 PM CDT) Color Fluid Colorless Colorless, Straw 11/15/2022 12:42 PM CDT [facility] Clarity Fluid Clear Clear 11/15/2022 12:42 PM CDT [facility] Volume Fluid 3.5 mL 11/15/2022 12:42 PM CDT [facility] WBC Calculation Fluid 1 0 - 5 x10e6/L 11/15/2022 12:42 PM CDT [facility] RBC Calculation 4 x10e6/L 12:42 PM CDT [facility] Xanthochromia Fluid Negative Negative 11/15/2022 12:42 PM CDT [facility] Differential 11/15/2022 12:42 PM CDT [facility] Comment:No differential perf ormed per procedure. Cerebral spinal fluid CEREBROSPINAL FLUID SPECIMEN / Unknown Collection / Unknown 11/15/2022 12:25 PM CDT 11/15/2022 12:25 PM CDT Narrative [facility] - 11/15/2022 12:42 PM CDT No reference ranges established for body fluid cell counts. The reference ranges provided are derived from published literature. The test results must be integrated into the clinical context for interpretation. Good Antunez MD LAB - BODY FLUID ORD ERABLES Performing Organization Address City/[facility]/ZIP Co de Phone Number [address] [address], [facility] [phone] * PROTEIN CSF (11/15/2022 12:25 PM CDT) Protein CSF 34 15 - 45 mg/dL 11/15/2022 1:15 PM CDT [facility] Cerebral spinal fluid CEREBROSPINAL FLUID SPECIMEN / Unknown Collection / Unknown 11/15/2022 12:25 PM CDT 11/15/2022 12:25 PM CDT Good Antunez MD LAB - BODY FLUID ORD ERABLES [address] [address], [facility] [phone] * GLUCOSE CSF (11/15/2022 12:25 PM CDT) Glucose CSF 57 40 - 70 mg/dL 11/15/2022 1:15 PM CDT [facility] Cerebral spinal fluid CEREBROSPINAL FLUID SPECIMEN / Unknown Collection / Unknown 11/15/2022 12:25 PM CDT 11/15/2022 12:25 PM CDT Good Antunez MD LAB - BODY FLUID ORD ERABLES [address] [address], [facility] [phone] * CULTURE FUNGUS OTHER+FUNGUS SMEAR (11/15/2022 12:17 PM CDT) Culture No fungus isolated ROSELIA 12/11/2022 7:[address] [facility] MICRO[facility] Fungus Stain No yeast or hyphae seen 12/11/2022 7:18 AM CDT [facility]CRO[facility] Microbiology CEREBROSPINAL FLUID SPECIMEN / Unknown Collection / Unknown 11/15/2022 12:17 PM CDT 11/15/2022 12:29 PM CDT Good Antunez MD LAB - MICROBIOLOGY O RDERABLES Performing Organization Address City/[facility]/ZIP Co de Phone Number [facility] [address] [place] [address], [facility] [phone] * CULTURE AFB+SMEAR (11/15/2022 12:17 PM CDT) Culture No acid-fast bacillus isolated 12/25/2022 7:40 AM CDT [facility] AFB Smear No acid-fast bacilli seen 12/25/2022 7:[address] [facility] MICRO[facility] Microbiology CEREBROSPINAL FLUID SPECIMEN / Unknown Collection / Unknown 11/15/2022 12:17 PM CDT 11/15/2022 12:29 PM CDT Good Antunez MD LAB - MICROBIOLOGY O RDERAJESSE [facility] [address] [place] [address], [facility] [phone] * FL LUMBAR PUNCTURE (11/15/2022 12:10 PM CDT) Anatomical Region Laterality Modality Spine Radiographic Irene ging 11/15/2022 1:13 PM CDT Impressions 11/15/2022 2:16 PM CDT IMPRESSION: 1.Successful lumbar puncture under fluoroscopic guidance at L3-L4. > Dictated by Royer Stovall MD (anesthesia resident). I, Oriana Suarez MD have personally reviewed and interpreted this examination/study. > Interpreting Provider: Oriana Suarez MD on 11/15/2022 2:16 PM Narrative 11/15/2022 2:16 PM CDT PROCEDURE: ??FL LUMBAR PUNCTURE, DATE/TIME OF EXAM: ??11/15/2022 1:24 PM, LOCATION ??[facility] INDICATION: R50.9: Fever, unspecified fever cause ADDITIONAL CLINICAL INFORMATION: Ordering Provider Reason For Exam: ??fever, c/f meningitis and seizure vs stroke EXAMINATION: Diagnostic lumbar puncture (LP) under fluoroscopic guidance TECHNIQUE: ??The risks and benefits of the lumbar puncture including, but not limited to pain, infection, bleeding, epidural hematoma, post spinal headache, cerebrospinal fluid (CSF) leak, irritation or damage to surrounding structures such as nerves causing pain or permanent injury were discussed with the patient and the patient's surrogate decision maker, []. After alternatives were discussed [such as refusing the procedure] and the opportunity to ask questions was provided, the patient and her surrogate decision maker acknowledged understanding, gave verbal and written consent, and wished to proceed. Attending physician: Dr. Suarez was present for the darden portions of this procedure. The L3-4 level was localized with fluoroscopy. The skin overlying this level was then sterilely prepped, draped, and infiltrated with 1% lidocaine for local anesthesia. Under intermittent fluoroscopic guidance, a 20 gauge 5 inch needle was inserted into the thecal sac at this level. Clear CSF was identified. A total of 19 ml of CSF was removed and placed into 4 specimen tubes. The patient tolerated the procedure well. The patient was then transferred to the inpatient wise for further observation and at least 2 hours of bedrest. OPENING PRESSURE: Not performed FLUOROSCOPY TIME: 29 seconds Procedure Note Oriana Suarez MD - 11/15/2022 PROCEDURE: FL LUMBAR PUNCTURE, DATE/TIME OF EXAM: 11/15/2022 1:24 PM, LOCATION [facility] INDICATION: R50.9: Fever, unspecified fever cause ADDITIONAL CLINICAL INFORMATION: Ordering Provider Reason For Exam: fever, c/f meningitis and seizure vs stroke EXAMINATION: Diagnostic lumbar puncture (LP) under fluoroscopic guidance TECHNIQUE: The risks and benefits of the lumbar puncture including, but not limited to pain, infection, bleeding, epidural hematoma, post spinal headache, cerebrospinal fluid (CSF) leak, irritation or damage to surrounding structures such as nerves causing pain or permanent injurywere discussed with the patient and the patient's surrogate decision maker, []. After alternatives were discussed [such as refusing the procedure] and the opportunity to ask questions was provided, thepatient and her surrogate decision maker acknowledged understanding, gave verbal and written consent, and wished to proceed. Attending physician: Dr. Suarez was present for the darden portions of this procedure. The L3-4 level was localized with fluoroscopy. The skin overlying this level was then sterilely prepped, draped, and infiltrated with 1%lidocaine for local anesthesia. Under intermittent fluoroscopic guidance, a 20gauge 5 inch needle was inserted into the thecal sac at this level. Clear CSF was identified. A total of 19 ml of CSF was removed and placed into 4 specimen tubes. The patient tolerated the procedure well. The patient was then transferred to the inpatient wise for furtherobservation and at least 2 hours of bedrest. OPENING PRESSURE: Not performed FLUOROSCOPY TIME: 29 seconds IMPRESSION: 1.Successful lumbar puncture under fluoroscopic guidance at L3-L4. > Dictated by Royer Stovall MD (anesthesia resident). IOriana MD have personally reviewed and interpreted this examination/study. > Interpreting Provider: Oriana Suarez MD on 11/15/2022 2:16 PM Good Antunez MD FLUOROSCOPY ORDERABL ES * (ABNORMAL) EOSINOPHIL URINE SMEAR (11/15/2022 9:57 AM CDT) Eosin Stain Urine Rare(A) None 11/15/2022 12:46 PM CDT [facility] Urine URINE SPECIMEN OBTAINED BY CLEAN CATCH PROCEDURE / Unknown Collection / Unknown 11/15/2022 9:57 AM CDT 11/15/2022 10:00 AM CDT Good Antunez MD LAB - URINE CHEMISTR Y ORDERABLES [facility] [address] [place] [address], [facility] [phone] * US ABDOMEN LTD W COMP DOPPLER (11/14/2022 9:24 AM CDT) Anatomical Region Laterality Modality Abdomen Ultrasound 11/14/2022 9:18 AM CDT Impressions 11/14/2022 9:54 AM CDT IMPRESSION: 1.No discrete hepatic lesion or intrahepatic biliary ductal dilatation. 2.Patent hepatic vasculature. Borderline low velocity the main portal vein measuring 18 cm/s. 3.Status post cholecystectomy. > Dictated by Miranda Bowen MD (anesthesia resident). > Dictated by Miranda Bowen (Recruiting Team Lead) 11/14/2022 9:18 AM I, HEATHER FREGOSO MD have personally reviewed and interpreted this examination/study. > Interpreting Provider: HEATHER FREGOSO MD on 11/14/2022 9:54 AM Narrative 11/14/2022 9:54 AM CDT PROCEDURE: ??US ABDOMEN LTD W COMP DOPPLER DATE/TIME OF EXAM: ??11/14/2022 9:24 AM CLINICAL INFORMATION: None relevant/not provided if blank. Indication: R74.01: Transaminitis COMPARISON: CT abdomen pelvis dated 11/09/2022. FINDINGS: Abdomen: The liver is normal in echotexture and echogenicity with smooth surface contour. No discrete hepatic mass or intrahepatic biliary dilatation is seen. The gallbladder is absent. ??The common bile duct measures 7 mm, likely representing reservoir effect in a postcholecystectomy state. The right kidney measures 10.8 x 5.3 x 4.3 cm. Limited views of the right kidney reveal no evidence of nephrolithiasis or hydronephrosis. The spleen measures 9.3 cm in length. The visible pancreas is normal in echogenicity. No ascites is present. Liver Doppler: Color and spectral Doppler evaluation demonstrates patency of the hepatic veins with appropriate flow direction and multiphasic waveforms. The main, left, and right portal veins appear patent with normal hepatopetal flow. The main portal vein demonstrates a normal phasic waveform and borderline low velocity measuring 18 cm/s. The proper hepatic artery is patent and demonstrates a normal arterial waveform with brisk systolic upstroke and antegrade flow. Resistive index in the proper hepatic artery measures 0.74. Procedure Note Heather Fregoso MD - 11/14/2022 PROCEDURE: US ABDOMEN LTD W COMP DOPPLER DATE/TIME OF EXAM: 11/14/2022 9:24 AM CLINICAL INFORMATION: None relevant/not provided if blank. Indication: R74.01: Transaminitis COMPARISON: CT abdomen pelvis dated 11/09/2022. FINDINGS: Abdomen: The liver is normal in echotexture and echogenicity with smooth surface contour. No discrete hepatic mass or intrahepatic biliary dilatation is seen. The gallbladder is absent. The common bile duct measures 7 mm, likely representing reservoir effect in a postcholecystectomy state. The right kidney measures 10.8 x 5.3 x 4.3 cm. Limited views of theright kidney reveal no evidence of nephrolithiasis or hydronephrosis. Thespleen measures 9.3 cm in length. The visible pancreas is normal inechogenicity. No ascites is present. Liver Doppler: Color and spectral Doppler evaluation demonstrates patency of thehepatic veins with appropriate flow direction and multiphasic waveforms. The main, left, and right portal veins appear patent with normal hepatopetal flow. The main portal vein demonstrates a normal phasic waveform and borderline low velocity measuring 18 cm/s. The proper hepatic artery is patent and demonstrates a normal arterial waveform with brisk systolic upstroke and antegrade flow. Resistiveindex in the proper hepatic artery measures 0.74. IMPRESSION: 1.No discrete hepatic lesion or intrahepatic biliary ductal dilatation. 2.Patent hepatic vasculature. Borderline low velocity the main portalvein measuring 18 cm/s. 3.Status post cholecystectomy. > Dictated by Miranda Bowen MD (anesthesia resident). > Dictated by Miranda Bowen (Recruiting Team Lead) 11/14/2022 9:18 AM IHEATHER MD have personally reviewed and interpreted this examination/study. > Interpreting Provider: HEATHER FREGOSO MD on 11/14/2022 9:54 AM Good Antunez MD US ORDERABLES * PREPARE (CROSSMATCH) RBC UNIT(S), 2 Units (11/14/2022 1:17 AM CDT) Only the most recent of5 resultswithin the time period is included. Unit Description AS1 LR PRBC [facility] Unit ABO B [facility] Unit Rh POS [facility] Product Number R02 [facility] LO[facility] Unit Donor # [id number] [facility] Unit Status released [facility] D [facility] Product Code [id number] [facility] Blood Type Barcode 7300 [facility] Expiration Date S BLOOD BANK LAB Unit Description AS1 LR PRBC [facility] Unit ABO B [facility] Unit Rh POS [facility] Product Number R02 [facility] B LO[facility] Unit Donor # [id number] [facility] Unit Status released [facility] D [facility] Product Code [id number] [facility] OD [facility] Blood Type Barcode 7300 [facility] Expiration Date S BLOOD BANK LAB Blood Bank BLOOD SPECIMEN / Unknown 11/10/2022 11:51 PM CDT Good Antunez MD LAB - BLOOD BANK ORD ERABLES [facility] [address] [place] [address], [facility] [phone] * PREPARE FFP UNIT(S), 1 Units (11/14/2022 1:17 AM CDT) [facility] Unit Description N/A [facility] Blood Bank BLOOD SPECIMEN / Unknown 11/10/2022 11:51 PM CDT Good Antunez MD LAB - BLOOD BANK ORD ERABLES [facility] [address] [place] [address], [place] [phone] * CYTOMEGALOVIRUS (CMV) QUANTITATIVE PLASMA (11/13/2022 3:34 PM CDT) [facility] CMV Quant by PCR, Interp Not detected Not detected 11/14/2022 12:40 PM CDT [facility] Blood BLOOD SPECIMEN / Unknown Lab Venipuncture / Unknown 11/13/2022 3:34 PM CDT 11/13/2022 3:53 PM CDT Narrative [facility] - 11/14/2022 12:40 PM CDT The CMV DNA analysis utilized real-time PCR, and is reported as Not Detected, Detected (< 30 IU/mL) [or Detected (< 1.48 log IU/mL)], Detected (30 - 100,000,000 IU/mL) [or Detected 1.48 to 8.00 log IU/mL)], or Detected (> 100,000,000 IU/mL) [or Detected (> 8.00 log IU/mL)]. The analytical sensitivity (LOD) of the assay is 30.00 IU/mL [1.48 log IU/mL], (100% of samples with this CMV/DNA level were detected). Linear range of the assay is 30 - 100,000,000 IU/mL [or 1.48 to 8.00 log IU/mL]. The detection/quantitation of CMV DNA is plasma is based on the isolation of CMV DNA followed by real-time PCR in the presence of reference standard DNA. The standard ensures that DNA was isolated, and that no general significant inhibitors of the real-time PCR process were present. Absolute CMV values or breakpoints for symptomatic disease have not been established and appear to be different between populations and laboratories. Therefore, it is important to monitor patients and to follow increases and/or decreases in the level of CMV in multiple blood specimens. The analysis was performed using an [place] FDA approved test methodology. Good Antunez MD LAB - CHEMISTRY BIB[place]NA BLACKMAN [facility] [address] [place] [address], [facility] [phone] * MARY JO-HERBERT VIRUS QUANT BLOOD STL (11/13/2022 3:34 PM CDT) EBV Quant by PCR, Interp Not detected Not detected 11/14/2022 1:40 PM CDT [facility] Specimen Type Plasma 11/14/2022 1:40 PM CDT [facility] Blood BLOOD SPECIMEN / Unknown Lab Venipuncture / Unknown 11/13/2022 3:34 PM CDT 11/13/2022 3:53 PM CDT Narrative [facility] - 11/14/2022 1:40 PM CDT DNA isolated from the plasma was analyzed in a qPCR assay to detect and quantify Mary Jo-Herbert DNA. An internal control is included to evaluate for PCR inhibition. The quantitative range of this assay is 500 IU/mL to 5,000,000 IU/mL. Values below 500 IU/mL will be reported as Detected (<500 IU/mL). ?? This test was developed and its performance characteristics determined by [facility]. ??It has not been cleared or approved by the U.S. Food and Drug Administration. ??The FDA has determined that such clearance or approval is not necessary. ??The test is used for clinical purposes. ??It should not be regarded as investigational or for research. ??This laboratory is certified under the Clinical Laboratory Improvement Amendments of 1988(CLIA-88) as qualified to perform high complexity clinical laboratory testing. Good Antunez MD LAB - CHEMISTRY [place] BLACKMAN [facility] [address] [place] [address], [facility] [phone] * CK BLOOD (11/13/2022 3:34 PM CDT) [facility] CK Total 57 30 - 200 U/L 11/13/2022 4:17 PM CDT [facility] Blood BLOOD SPECIMEN / Unknown Lab Venipuncture / Unknown 11/13/2022 3:34 PM CDT 11/13/2022 3:52 PM CDT Good Antunez MD LAB - CHEMISTRY [place]NA BLACKMAN [facility] [address] [place] [address], [place] [phone] * (ABNORMAL) GLUCOSE - POINT OF CARE (11/13/2022 4:14 AM CDT) Only the most recent of44 resultswithin the time period is included. [facility] Glucose WB/POC 120(H) 70 - 115 mg/dL 11/13/2022 4:27 AM CDT [facility] Specimen Type Cap Fingerstick 2022 4:27 AM CDT [facility] Blood BLOOD SPECIMEN / Unknown 11/13/2022 4:14 AM CDT 11/13/2022 4:27 AM CDT Good Antunez MD LAB - POINT OF CARE ORDERABLES Performing Organization Address [facility]/ZIP Co de Phone Number [facility] [address] [place] [address], [place] [phone] * (ABNORMAL) TSH REFLEX FREE T4 (11/13/2022 2:10 AM CDT) Only the most recent of3 resultswithin the time period is included. TSH 5.706(H) 0.350 - 4.940 uIU/mL 11/13/2022 3:33 AM CDT [facility] Blood BLOOD SPECIMEN / Unknown Lab Venipuncture / Unknown 11/13/2022 2:10 AM CDT 11/13/2022 2:44 AM CDT Good Antunez MD LAB - CHEMISTRY BIB[place]NA BLACKMAN Performing Organization Address [facility] Co de Phone Number [facility] [address] [place] [address], [place] [phone] * T4 FREE (11/13/2022 2:10 AM CDT) Only the most recent of2 resultswithin the time period is included. T4 Free 1.1 0.7 - 1.5 ng/dL 11/13/2022 4:05 AM CDT [facility] Blood BLOOD SPECIMEN / Unknown Lab Venipuncture / Unknown 11/13/2022 2:10 AM CDT 11/13/2022 2:44 AM CDT Good Antunez MD LAB - CHEMISTRY B[place]NA BLACKMAN [facility] [address] [place] [address], [facility] [phone] * XR CHEST 1VW PORTABLE (11/12/2022 8:44 PM CDT) Only the most recent of7 resultswithin the time period is included. Anatomical Region Laterality Modality Chest Radiographic Irene ging 11/13/2022 10:4 6 AM CDT Narrative 11/13/2022 11:59 AM CDT PROCEDURE: ??XR CHEST 1VW PORTABLE, DATE/TIME OF EXAM: ??11/12/2022 8:45 PM, LOCATION ??[facility] INDICATION: R50.9: Fever, unspecified fever cause ADDITIONAL CLINICAL INFORMATION: Ordering Provider Reason For Exam: ??fever, elevated HR, concern for infection COMPARISON: Chest radiograph dated 11/05/2022 FINDINGS/IMPRESSION: There is no focal consolidation. There is interstitial prominence diffusely bilaterally which could represent interstitial pneumonia in the appropriate clinical setting. No pleural effusion or pneumothorax. The cardiomediastinal silhouette is normal. No acute osseous abnormality. Report dictated by Agnes Olmos DO (anesthesia resident). Pepe Ornelas MD have personally reviewed and interpreted this examination/study. > Interpreting Provider: Pepe Gonzalez MD on 11/13/2022 11:59 AM Procedure Note Pepe Gonzalez MD - 11/13/2022 PROCEDURE: XR CHEST 1VW PORTABLE, DATE/TIME OF EXAM: 11/12/2022 8:45 PM, LOCATION [facility] INDICATION: R50.9: Fever, unspecified fever cause ADDITIONAL CLINICAL INFORMATION: Ordering Provider Reason For Exam: fever, elevated HR, concern for infection COMPARISON: Chest radiograph dated 11/05/2022 FINDINGS/IMPRESSION: There is no focal consolidation. There is interstitial prominencediffusely bilaterally which could represent interstitial pneumonia in theappropriate clinical setting. No pleural effusion or pneumothorax. The cardiomediastinal silhouette is normal. No acute osseous abnormality. Report dictated by Agnes Olmos DO (anesthesia resident). Pepe Ornelas MD have personally reviewed and interpreted this examination/study. > Interpreting Provider: Pepe Gonzalez MD on 11/13/2022 11:59 AM Good Antunez MD DIAGNOSTIC IMAGING O RDDIMAS * CULTURE BLOOD (11/12/2022 5:32 AM CDT) Only the most recent of6 resultswithin the time period is included. Culture No growth day 5 ROSELIA 11/17/2022 10:01 AM CDT [facility] Blood PERIPHERAL BLOOD / Unknown Lab Venipuncture / Unknown 11/12/2022 5:32 AM CDT 11/12/2022 6:09 AM CDT Good Antunez MD LAB - MICROBIOLOGY O RDERABLES Performing Organization Address City/[facility]/ZIP Co de Phone Number [facility] [address] [place] [address], [facility] [phone] * LACTIC ACID BLOOD REFLEX TO REPEAT (11/11/2022 5:03 PM CDT) Lactic Acid-Stat 1.0 <=2.0 mmol/L 11/11/2022 5:35 PM CDT [facility] Blood BLOOD SPECIMEN / Unknown Venipuncture / Unknown 11/11/2022 5:03 PM CDT 11/11/2022 5:09 PM CDT Good Antunez MD LAB - CHEMISTRY BIB[place]NA BLACKMAN Performing Organization Address City/[facility]/ZIP Co de Phone Number [facility] [address] [place] [address], [facility] [phone] * ETT LINE PERFORMABLE (11/10/2022 7:32 PM CDT) Narrative Fly Barton DO - 11/10/2022 7:32 PM CDT Fly Barton DO ? 11/10/2022 ??7:33 PM Endotracheal Tube Placement: ? Patient Location: OR. Procedure: intubation (67408). Procedure Section: ?? Sedation: IV sedation. Indications for Airway Management: ??airway protection Procedure pretreatments used? ??Yes Induction: standard IV Patient Position: ??sniffing Mask Ventilation: easy. Blade Type: Video Blade Size: 3 Laryngoscopy View: grade 1 (full cords) Intubation Adjuncts: stylet Tube: endotracheal tube Placement: oral Tube type: cuff - inflated Tube Size (MM): 7 Depth of Insertion (CM): 22 Measured From: lips Cuff Inflated With: air Number of Attempts: 1. Placement Verified By: direct visualization, bilateral breath sounds, chest auscultation and CO2 monitor Tube secured with: ??adhesive tape. Dentition unchanged? ??Yes Difficult Airway? ??No. Staff Section ? Anesthesia Provider: Ashly Schaeffer MD ? Provider #1: Fly Barton DO, Performed the procedure. Ashly Schaeffer MD GENERAL ANESTHESIA O RDERABLES * MRI BRAIN WWO CONTRAST (11/09/2022 11:50 PM CDT) Only the most recent of2 resultswithin the time period is included. Anatomical Region Laterality Modality Head Magnetic Resonan ce 11/10/2022 11:2 1 AM CDT Impressions 11/10/2022 12:03 PM CDT IMPRESSION: 1. Redemonstration of postsurgical changes from right decompressive hemicraniectomy and evolving large volume right MCA territory infarct as described above. Mild interval increase in the caliber of lateral and third ventricles could be secondary to decreased mass effect, less likely hydrocephalus, continued attention recommended on follow-up. 2. Interval resolution of midline shift compared to prior MRI. Interval increased linear susceptibility along the medial margin of the infarction at the periventricular white matter could be secondary to hemosiderin deposition/petechial hemorrhages. 3. Significant interval increase in the cortical enhancement along the right frontal parietal and temporal regions a at the site of evolving infarction including the right basal ganglia and right periventricular regions could be secondary to evolving subacute infarction however superimposed cerebritis/meningitis cannot be excluded. Small focus of T2 hyperintensity with peripheral enhancement noted in the right temporal lobe however without central restricted diffusion also could represent signal focus of evolving subacute infarction versus developing cerebritis. 4. There is also interval increase restricted diffusion in the extra-axial fluid collection overlying the craniectomy site could be secondary to evolving blood products/postsurgical changes versus secondary to superimposed infection, clinical correlation is recommended. These findings were discussed with patient's care provider, Dr. Tucker, stroke team, by on 11/10/2022 11:59 AM with read back verification. > Interpreting Provider: Oriana Suarez MD on 11/10/2022 12:03 PM Narrative 11/10/2022 12:03 PM CDT PROCEDURE: ??MRI BRAIN WWO CONTRAST, DATE/TIME OF EXAM: ??11/09/2022 11:51 PM, LOCATION ??[facility] INDICATION: R50.9: Fever, unspecified fever cause ADDITIONAL CLINICAL INFORMATION: Ordering Provider Reason For Exam: ??pt febrile rule out any abscess COMPARISON: MRI brain 10/24/2022, CT head 10/26/2022, 10/28/2022 TECHNIQUE: MRI of the brain was performed without and with contrast, according to standard protocol CONTRAST: ?? GADOBUTROL 1 MMOL/ML IV SSM SO:9 mL FINDINGS: Redemonstration of postoperative changes of decompressive right hemicraniectomy .Redemonstration of extra-axial collection along the craniectomy site containing extra-axial blood products and fluid, measuring approximately 1.5 cm in maximum thickness with interval increase to T2 hyperintense component compared to prior study. T2 hyperintense compartment of extra-axial fluid collection previously measured 6 mm in thickness. There is interval increased layering diffusion restriction along the fluid collection overlying the right frontal lobe parietotemporal regions. (Image 41, series 2). There is peripheral enhancement along the soft tissues surrounding the extra-axial collection Redemonstration of extensive cytotoxic edema in the right frontotemporoparietal regions, the right insula, and the right basal ganglia, extending along the martínez radiata /right centrum semiovale compatible with evolving acute right MCA territory infarction. Some of these lesions show persistent restricted diffusion including basal ganglia and the right periventricular white matter suggesting evolving infarction. There is persistent local mass effect on the right cerebral hemisphere with effacement of the overlaying sulci, mild external herniation of the infarcted brain through the craniectomy defect. Interval resolution of effacement of the right lateral ventricle and the [id number] midline shift. Extensive susceptibility artifacts along the craniectomy site compatible with expected postsurgical changes. Foci of the new foci of susceptibility/T2 hypointensity noted along the medial margin of the infarction in the right periventricular white matter could be secondary to petechial hemorrhages/chronic hemosiderin deposition, new compared to prior study.. No susceptibility foci corresponding to hyperdense regions along the cortex on recent head CT suggesting evolving cortical laminar necrosis. Interval resolution of restricted diffusion along small areas of, left centrum semiovale/martínez radiata,, left frontoparietal regions most likely sequela of subacute to chronic infarcts. No new areas of acute infarcts noted. . Interval increased caliber of the right lateral ventricle and third ventricles could be secondary to decreased mass effect. Mild interval increase in the caliber of left lateral ventricle for example edema of the left lateral ventricle previously measured about 11 mm now measures about 13 mm. Third ventricle now measures about 5 to 6 mm previously measured about 1 to 2 mm. No evidence of transependymal edema. No significant interval change in the basilar cisterns. No evidence of transtentorial herniation. Interval increase in the thickness of cortical/leptomeningeal enhancement along the right frontotemporoparietal infarcted area peripheral enhancement involving the right basal ganglia enhancement extending up to the lateral margin of the right lateral ventricle.. There is also small T2 hyperintense focus along the right temporal lobe (image 14, series 9) measuring about 2 x 0.9 cm with the peripheral enhancement however without central restricted diffusion. Small areas enhancement in the subcortical regions of the right temporoparietal regions and also in the left parietal region at the site of prior infarcts suggesting evolving subacute infarcts. No other enhancing lesions are otherwise identified. The corpus callosum and sella appear normal. The posterior fossa, brainstem, and craniocervical junction appear grossly stable. The visualized portions of the orbits appear grossly unremarkable. No significant opacification of the paranasal or mastoid air cells.. Normal flow voids are demonstrated in the carotid arteries and basilar artery. The calvarium and visualized cervical spine otherwise appear normal. Procedure Note Oriana Suarez MD - 11/10/2022 PROCEDURE: MRI BRAIN WWO CONTRAST, DATE/TIME OF EXAM: 11/09/2022 11:51PM, LOCATION [facility] INDICATION: R50.9: Fever, unspecified fever cause ADDITIONAL CLINICAL INFORMATION: Ordering Provider Reason For Exam: pt febrile rule out any abscess COMPARISON: MRI brain 10/24/2022, CT head 10/26/2022, 10/28/2022 TECHNIQUE: MRI of the brain was performed without and with contrast, according to standard protocol CONTRAST: GADOBUTROL 1 MMOL/ML IV SSM SO:9 mL FINDINGS: Redemonstration of postoperative changes of decompressive right hemicraniectomy .Redemonstration of extra-axial collection along the craniectomy site containing extra-axial blood products and fluid,measuring approximately 1.5 cm in maximum thickness with interval increase to T2 hyperintense component compared to prior study. T2 hyperintensecompartment of extra-axial fluid collection previously measured 6 mm in thickness. There is interval increased layering diffusion restriction along thefluid collection overlying the right frontal lobe parietotemporal regions.(Image 41, series 2). There is peripheral enhancement along the soft tissues surrounding the extra-axial collection Redemonstration of extensive cytotoxic edema in the right frontotemporoparietal regions, the right insula, and the right basal ganglia, extending along the martínez radiata /right centrum semiovale compatible with evolving acute right MCA territory infarction. Some of these lesions show persistent restricted diffusion including basalganglia and the right periventricular white matter suggesting evolvinginfarction. There is persistent local mass effect on the right cerebral hemispherewith effacement of the overlaying sulci, mild external herniation of the infarcted brain through the craniectomy defect. Interval resolution of effacement of the right lateral ventricle and the dcaqh-yy-[id number] midline shift. Extensive susceptibility artifacts along the craniectomy site compatible with expected postsurgical changes. Foci of the new foci of susceptibility/T2 hypointensity noted along the medial margin of the infarction in the right periventricular white matter could be secondaryto petechial hemorrhages/chronic hemosiderin deposition, new compared toprior study.. No susceptibility foci corresponding to hyperdense regions along the cortex on recent head CT suggesting evolving cortical laminarnecrosis. Interval resolution of restricted diffusion along small areas of, left centrum semiovale/martínez radiata,, left frontoparietal regions mostlikely sequela of subacute to chronic infarcts. No new areas of acute infarcts noted. . Interval increased caliber of the right lateral ventricle and third ventricles could be secondary to decreased mass effect. Mild interval increase in the caliber of left lateral ventricle for example edema ofthe left lateral ventricle previously measured about 11 mm now measuresabout 13 mm. Third ventricle now measures about 5 to 6 mm previously measured about 1 to 2 mm. No evidence of transependymal edema. No significant interval change in the basilar cisterns. No evidence of transtentorial herniation. Interval increase in the thickness of cortical/leptomeningealenhancement along the right frontotemporoparietal infarcted area peripheralenhancement involving the right basal ganglia enhancement extending up to thelateral margin of the right lateral ventricle.. There is also small [id number] focus along the right temporal lobe (image 14, series 9) measuring about2 x 0.9 cm with the peripheral enhancement however without centralrestricted diffusion. Small areas enhancement in the subcortical regions of theright temporoparietal regions and also in the left parietal region at the siteof prior infarcts suggesting evolving subacute infarcts. No other enhancing lesions are otherwise identified. The corpus callosum and sella appear normal. The posterior fossa, brainstem, andcraniocervical junction appear grossly stable. The visualized portions of the orbits appear grossly unremarkable. No significant opacification of the paranasal or mastoid air cells.. Normal flow voids are demonstrated in the carotid arteries and basilar artery.The calvarium and visualized cervical spine otherwise appear normal. IMPRESSION: 1. Redemonstration of postsurgical changes from right decompressive hemicraniectomy and evolving large volume right MCA territory infarct as described above. Mild interval increase in the caliber of lateral andthird ventricles could be secondary to decreased mass effect, less likely hydrocephalus, continued attention recommended on follow-up. 2. Interval resolution of midline shift compared to prior MRI. Interval increased linear susceptibility along the medial margin of theinfarction at the periventricular white matter could be secondary to hemosiderin deposition/petechial hemorrhages. 3. Significant interval increase in the cortical enhancement along the right frontal parietal and temporal regions a at the site of evolving infarction including the right basal ganglia and right periventricular regions could be secondary to evolving subacute infarction however superimposed cerebritis/meningitis cannot be excluded. Small focus of T2 hyperintensity with peripheral enhancement noted in the right temporallobe however without central restricted diffusion also could represent signal focus of evolving subacute infarction versus developing cerebritis. 4. There is also interval increase restricted diffusion in theextra-axial fluid collection overlying the craniectomy site could be secondary to evolving blood products/postsurgical changes versus secondary to superimposed infection, clinical correlation is recommended. These findings were discussed with patient's care provider, , stroke team, by on 11/10/2022 11:59 AM with read back verification. > Interpreting Provider: Oriana Suarez MD on 11/10/2022 12:03 PM Jaime Drew MD MR ORDERABLES * VANCOMYCIN LEVEL TROUGH (11/09/2022 6:54 AM CDT) Only the most recent of6 resultswithin the time period is included. Vancomycin Trough 18.8 10.0 - 20.0 ug/mL 11/09/2022 7:24 AM CDT [facility] Blood BLOOD SPECIMEN / Unknown Lab Venipuncture / Unknown 11/09/2022 6:54 AM CDT 11/09/2022 6:57 AM CDT Narrative [facility] - 11/09/2022 7:24 AM CDT See institution protocol. Jaime Drew MD LAB - CHEMISTRY [facility] Organization Address City/State/ZIP Co de Phone Number [facility] [address] [place] [address], [facility] [phone] * VAS BILATERAL VENOUS DUPLEX LE (11/08/2022 12:20 PM CDT) Anatomical Region Laterality Modality Lower Extremity Intravascular Ul trasound 11/08/2022 11:5 8 AM CDT Narrative Procedure Note Ulises Ahumada MD - 11/08/2022 Jaime Drew MD VASCULAR LAB ORDERAB LES * VAS BILATERAL VENOUS DUPLEX UE (11/08/2022 12:20 PM CDT) Anatomical Region Laterality Modality Upper Extremity Intravascular Ul trasound 11/08/2022 11:2 6 AM CDT Narrative Procedure Note Ulises Ahumada MD - 11/08/2022 Jaime Drew MD VASCULAR LAB ORDERAB LES * CT ANGIO CHEST PULM EMBOLISM (11/07/2022 5:22 PM CDT) Anatomical Region Laterality Modality Chest Computed Tomogra phy 11/07/2022 5:34 PM CDT Impressions 11/07/2022 10:30 PM CDT Impression: 1.No evidence of acute pulmonary embolism. There is no radiographic evidence of right heart strain. 2.No other acute process within the chest. > Dictated by Tim Majro MD (anesthesia resident). I, Alexx Lopez have personally reviewed and interpreted this examination/study. > Interpreting Provider: Alexx Lopez on 11/07/2022 10:30 PM Narrative 11/07/2022 10:30 PM CDT PROCEDURE: ??CT ANGIO CHEST PULM EMBOLISM, DATE/TIME OF EXAM: ??11/07/2022 5:25 PM, LOCATION ??[facility] INDICATION: R50.9: Fever, unspecified fever cause ADDITIONAL CLINICAL INFORMATION: Ordering Provider Reason For Exam: ??PE, fever COMPARISON: CT chest abdomen pelvis with contrast dated 10/25/2022. TECHNIQUE: CT of the chest was performed following the uneventful administration of 100 mL of Isovue 370 intravenous contrast according to a pulmonary embolism protocol. Multiplanar reconstructions were created. Findings: Study Quality This examination for the diagnosis of pulmonary embolism is adequate. Pulmonary Arteries: No evidence of acute pulmonary embolism. Thoracic Vasculature: No vascular abnormality is present. Lower Neck and Axillae: Normal. Lungs: Subsegmental dependent atelectasis of the posterior lungs. No suspicious pulmonary nodules are identified. No pleural fluid or pneumothorax is present. Heart and Pericardium: The cardiac chambers are normal in size. No pericardial fluid or thickening is present. There is no radiographic evidence of right heart strain. Mediastinum and Isabel: No enlarged lymph nodes are present. Bones and Chest Wall: Bone windows demonstrate no suspicious lytic or blastic lesions. The visible osseous structures are intact. Upper Abdomen: The visible portions of the upper abdominal organs are normal. Procedure Note Alexx Lopez MD - 11/07/2022 PROCEDURE: CT ANGIO CHEST PULM EMBOLISM, DATE/TIME OF EXAM: 11/07/2022 5:25 PM, LOCATION [facility] INDICATION: R50.9: Fever, unspecified fever cause ADDITIONAL CLINICAL INFORMATION: Ordering Provider Reason For Exam: PE, fever COMPARISON: CT chest abdomen pelvis with contrast dated 10/25/2022. TECHNIQUE: CT of the chest was performed following the uneventful administration of 100 mL of Isovue 370 intravenous contrast according toa pulmonary embolism protocol. Multiplanar reconstructions were created. Findings: Study Quality This examination for the diagnosis of pulmonary embolism is adequate. Pulmonary Arteries: No evidence of acute pulmonary embolism. Thoracic Vasculature: No vascular abnormality is present. Lower Neck and Axillae: Normal. Lungs: Subsegmental dependent atelectasis of the posterior lungs. No suspicious pulmonary nodules are identified. No pleural fluid or pneumothorax is present. Heart and Pericardium: The cardiac chambers are normal in size. No pericardial fluid orthickening is present. There is no radiographic evidence of right heart strain. Mediastinum and Isabel: No enlarged lymph nodes are present. Bones and Chest Wall: Bone windows demonstrate no suspicious lytic or blastic lesions. The visible osseous structures are intact. Upper Abdomen: The visible portions of the upper abdominal organs are normal. Impression: 1.No evidence of acute pulmonary embolism. There is no radiographic evidence of right heart strain. 2.No other acute process within the chest. > Dictated by Tim Major MD (anesthesia resident). I, Alexx Lopez have personally reviewed and interpreted this examination/study. > Interpreting Provider: Alexx Lopez on 11/07/2022 10:30 PM Jaime Drew MD CT ORDERABLES * ECHO COMPLETE W CONTRAST (11/06/2022 1:49 PM CDT) Only the most recent of2 resultswithin the time period is included. BSA [id number] m2 SSM CV FUJ I PACS LV biplane EF 67 54 - 74 % SSM CV FUJI PACS LV A2C EF 66 52 - 76 % SSM CV FUJ I PACS LV A4C EF 66 46 - 78 % SSM CV FUJ I PACS LVOT stroke vol 78.31 mL SSM CV FUJI PACS LV stroke vol 2D teich 83.717 ml SSM CV FUJI PACS LV stroke vol index A4C MOD 77.912 ml/m2 SSM CV FUJI PACS LV Stroke Index 2D Teich 39.55 mL/m2 SSM CV FUJI PACS LVIDd 5.11 3.8 - 5.2 cm SSM CV FUJI PACS LVIDs 3.19 2.2 - 3.5 cm SSM CV FUJI PACS IVSd 2D 1.031 0.6 - 0.9 cm SSM CV FUJI PACS LVPWd 1.01 cm SSM CV FUJ I PACS Fractional Shortening 2D 45 28 - 44 % SSM CV FUJI PACS LV ESV BP 38.72 14 - 42 mL SSM CV FUJI PACS LV ESV index BP 18.3 8 - 24 mL/m2 SSM CV FUJI PACS LV ESV A2C 39.448 10 - 54 mL SSM CV FUJI PACS LV ESV index A2C 18.63 6 - 30 mL/m2 SSM CV FUJI PACS LV EDV BP 116.99 mL SSM CV FUJ I PACS LV ESV A4C 37.911 12 - 60 mL SSM CV FUJI PACS LV ESV index A4C 17.91 7 - 35 mL/m2 SSM CV FUJI PACS LV EDV index BP 55.3 29 - 61 mL/m2 SSM CV FUJI PACS LV EDV A2C 110.713 41 - 133 mL SSM CV FUJI PACS LV EDV index A2C 52.30 26 - 74 mL/m2 SSM CV FUJI PACS LV EDV A4C 117.36 mL SSM CV FU JI PACS LV ESV 2D 40.707 14 - 42 mL SSM CV FUJI PACS LV EDV index A4C 55.44 30 - 82 mL/m2 SSM CV FUJI PACS LV ESV index 2D 19.23 8 - 24 mL/m2 SSM CV FUJI PACS LV EDV 2D 124.423 46 - 106 mL SSM CV FUJI PACS LV EDV index 2D 58.77 29 - 61 mL/m2 SSM CV FUJI PACS LVOT diam 2.3 cm SSM CV FUJ I PACS LVOT area 4.15 cm2 SSM CV FUJ I PACS LV RWT 0.396 SSM CV FUJ I PACS LV Mahmood A2C 8.924 cm SSM CV F UJI PACS LV Mahmood A4C 8.354 cm SSM CV F UJI PACS IVS/LVPW 1.02 SSM CV FUJ I PACS LV mass 2D 129.6714 66 - 150 g SSM CV FUJI PACS LV mass index 2D 61.25 44 - 88 g/m2 SSM CV FUJI PACS MV E pk arianna 102.695 cm/s SSM CV F UJI PACS MV avg E/e' ratio 8.429 SS M CV FUJI PACS MV A pk arianna 107.094 cm/s SSM CV F UJI PACS MV E A ratio 0.96 SSM CV FUJI PACS MV E' lateral arianna 14.141 cm/s SS M CV FUJI PACS MV DT 168 ms SSM CV RUST I PACS MV E' septal arianna 10.702 cm/s SSM CV FUJI PACS MV A duration 122 ms SSM CV RUSTI PACS MV E/e' septal 9.596 SSM C V RUSTI PACS MV E/e' lateral 7.262 SSM CV RUSTI PACS TR pk arianna 224.0 cm/s SSM CV RUST I PACS LVOT pk arianna 0.91 m/s SSM CV F UJI PACS LVOT mn arianna 0.54 m/s SSM CV F U PACS LVOT mn grad 1.4 mmHg SSM CV RUSTI PACS LVOT Cardiac Output 4.588 l/min SSM CV RUSTI PACS LVOT Cardiac Index 2.17 l/min/m2 SSM CV RUSTI PACS LA vol BP A-L 54.925 mL SSM CV RUSTI PACS RV-mahmood basal diam 3.2 2.5 - 4.1 cm SSM CV RUSTI PACS RV-mahmood longitudinal diam 8.8 5.9 - 8.3 cm SSM CV RUSTI PACS RVIDd 3.0 cm SSM CV RUST I PACS RVOT VTI 17.595 cm SSM CV RUST I PACS TAPSE 2.324 1.7 cm SSM CV RUST I PACS RVOT pk arianna 0.85 m/s SSM CV F UJI PACS RA area 19.252 cm2 SSM CV RUST I PACS AV mn grad 5 mmHg SSM CV FU JI PACS AV pk grad 10 mmHg SSM CV FU JI PACS AV mn arianna 1.02 m/s SSM CV FUJ I PACS AV pk arianna 1.59 m/s SSM CV FUJ I PACS AV VTI 31.153 cm SSM CV FUJ I PACS LVOT pk grad 3.307 mmHg SSM CV FUJI PACS LVOT VTI 18.891 cm SSM CV FUJ I PACS AV area cont VTI 2.5 cm2 SSM CV FUJI PACS AV area pk arianna 2.4 cm2 SSM C V FUJI PACS AV Doppler arianna index pk arianna 0.573 SSM CV FUJI PACS LVOT stroke vol index 37.0 mL/m2 SSM CV FUJI PACS Dimensionless Index 0.606 SSM CV FUJI PACS MV decel slope 527.714 cm/s2 SSM C V FUJI PACS TR VTI 59.4 cm SSM CV FUJ I PACS TR pk grad 20 mmHg SSM CV FU JI PACS RVOT mn grad 1 mmHg SSM CV FUJI PACS RVOT pk grad 3 mmHg SSM CV FUJI PACS PV mn grad 2 mmHg SSM CV FU JI PACS PV pk arianna 94.492 cm/s SSM CV FUJ I PACS PV pk grad 4 mmHg SSM CV FU JI PACS PV VTI 20.04 cm SSM CV FUJ I PACS PV mn arianna 58.671 cm/s SSM CV FUJ I PACS Max Age Predicted HR 180 SSM CV FUJI PACS LA ESV A4C MOD Index 20 ml/m2 SSM CV FUJI PACS LA ESV A2C MOD Index 27 ml/m2 SSM CV FUJI PACS Target HR 153 SSM CV FUJ I PACS [id number] 6.938 cm SSM CV FUJ I PACS [id number] 6.869 cm SSM CV FUJ I PACS LV stroke vol BP 78.27 ml/m2 SSM CV FUJI PACS LVIDs index 1.51 1.3 - 2.1 cm/m2 SSM CV FUJI PACS LV LVIDd index 2.41 2.3 - 3.1 cm/m2 SSM CV FUJI PACS LA size 3.203 2.7 - 3.8 cm SSM CV FUJI PACS RV wall thickness 0.5 cm SS M CV FUJI PACS Sinus of Valsalva 2.51 cm SS M CV FUJI PACS Descending aorta 1.97 cm SSM CV FUJI PACS Ascending aorta 2.47 cm SSM CV FUJI PACS ST junction 2.34 cm SSM CV F UJI PACS Sinus of valsalva index 1.19 cm/m2 SSM CV FUJI PACS ST junction index 1.11 cm/m2 SS M CV FUJI PACS Aortic annulus 2.478 cm SSM C V FUJI PACS Prox Asc Ao Diameter Index 1.167 cm SSM CV FUJI PACS EF 2D Bullet 64.609 % SSM CV FUJI PACS Qp:Qs 0.97 SSM CV FUJ I PACS RVOT diam Doppler 2.342 cm SS M CV FUJI PACS RVOT area Doppler 4.31 cm2 SS M CV FUJI PACS RVOT stroke vol 75.74 cm3 SSM CV FUJI PACS RVOT envelope time 347 ms SSM CV FUJI PACS PV envelope time 342 ms SSM CV FUJI PACS MV area planimetry 5.39 cm2 SSM CV FUJI PACS MV area index 2.55 cm2/m2 SSM CV FUJI PACS PV area cont eq 3.8 cm2 SSM CV FUJI PACS MV annulus diameter 3.1 cm SSM CV FUJI PACS MV lat S' arianna 6.241 cm/s SSM CV FUJI PACS AV envelope time 306 ms SSM CV FUJI PACS LVOT envelope time 352 ms SSM CV FUJI PACS LV EDV A/L A4C 122.213 mL SSM C V FUJI PACS LV EDV index A/L A4C 57.73 mL/m2 SSM CV FUJI PACS LV Area Mahmood A2C 34.583 cm2 SSM CV FUJI PACS LV Area Mahmood A4C 34.658 cm2 SSM CV FUJI PACS LV IVRT 66 ms SSM CV FUJ I PACS LA vol BP 53.231 mL SSM CV FUJ I PACS P vein S/D ratio 1.07 SSM CV FUJI PACS MV septal a' arianna 8.409 cm/s SSM CV FUJI PACS MV lat a' arianna 6.753 cm/s SSM CV FUJI PACS LA vol index 25.1 16 - 34 mL/m2 SSM CV FUJI PACS RV-mahmood mid diam 3.0 1.9 - 3.5 cm SSM CV FUJI PACS RV CHELSI 10.978 3 - 11 cm2 SSM CV FUJI PACS RV CHELSI index 5.19 1.6 - 6.4 cm2/m2 SSM CV FUJI PACS RV GERDA 21.8 cm2 SSM CV FUJ I PACS RV GERDA index 10.30 4.5 - 11.5 cm2/m2 SSM CV FUJI PACS TV S' arianna 12.738 SSM CV FUJ I PACS RV FAC 49.70 35 % SSM CV FUJ I PACS MV mn grad 2 mmHg SSM CV FU JI PACS MV pk grad 4 mmHg SSM CV FU JI PACS MV mn arianna 0.69 m/s SSM CV FUJ I PACS MV pk arianna 99.597 cm/s SSM CV FUJ I PACS MV area cont eq 4.10 cm2 SSM CV FUJI PACS MV VTI 19.114 cm SSM CV FUJ I PACS MV VTI AT ANNULUS PEAK VELOCITY 63.722 cm/s SSM CV FUJI PACS MV VTI AT ANNULUS PEAK GRADIENT 1.624 mmHg SSM CV FUJI PACS MV VTI AT ANNULUS MEAN VELOCITY 40.936 cm/s SSM CV FUJI PACS MV VTI AT ANNULUS MEAN GRADIENT 0.76 mmHg SSM CV FUJI PACS MV VTI AT ANNULUS EJECTION TIME 0.301 s SSM CV FUJI PACS MV regurgitant SV 1 77.50 cm3 SSM CV FUJI PACS TV mn arianna 43.519 m/s SSM CV FUJ I PACS TV pk arianna [id number] cm/s SSM CV FUJI PACS TV mn grad 1 mmHg SSM CV FU JI PACS TV pk grad 3 mmHg SSM CV FU JI PACS TV area PHT 6.30 cm2 SSM CV F UJI PACS TV area continuity 5.42 cm2 SSM CV FUJI PACS TV VTI 13.977 cm SSM CV FUJ I PACS TV PHT 35 ms SSM CV FUJ I PACS TV DT 0.12 ms SSM CV FUJ I PACS LA ESV INDEX (BP) 25.14 ml/m2 SS M CV FUJI PACS MV Rvol PISA -0.8 mL SSM CV FUJI PACS AV Rvol cont eq 0.81 mL [facility] CV FUJI PACS LA AREA (2C) 20.197 [facility] CV FUJI PACS LA AREA (4C) 15.821 [facility]UJ[facility] PACS sPAP 23.0 mmHg [facility] FUJ I PACS RVSP 23.0 mmHg [facility] CV FUJ I PACS RAP 3.0 mmHg [facility] CV FUJ I PACS TR mn grad 12 mmHg [facility] CV FU JI PACS Aortic arch 2.6 cm [facility] CV F UJI PACS Abdominal aorta 2.0 cm [facility] CV FUJI PACS IVC size 1.8 cm [facility] CV FUJ I PACS IVC size sniff 0.6 cm [facility] C V FUJI PACS Anatomical Region Laterality Modality Ultrasound Narrative 11/07/2022 3:05 PM CDT ?Left??Ventricle: Left ventricle size is normal. EDV Index BP is 55.3 mL/m2. ESV Index BP is 18.3 mL/m2. Normal wall thickness. LVPWd is 1.01 cm. Ventricular mass is normal. Mass index 2D is 61.25 g/m2. Normal systolic function with a visually estimated EF of 65 - 70%. EF by 2D Abarca biplane is 67%. Normal wall motion. Normal diastolic function. Normal mean left atrial pressure. Tissue Doppler velocity is reduced. MV peak E velocity is 102.695 cm/s. MV e' lateral velocity is 14.141 cm/s. MV e' septal velocity is 10.702 cm/s. ?Right ventricle size is normal. Normal free wall thickness. RV wall thickness is 0.5 cm. Normal wall motion. Normal systolic function. TAPSE is 2.324 cm. Fractional area change (FAC) is 49.70%. ?Left atrium size is normal. Left atrium volume index is 25.1 mL/m2. The interatrial septum appears normal with no evidence of a shunt by color flow Doppler. No mass present. ?Estimated right atrial pressure is normal (~3 mmHg). IVC is normal in size. SVC was not assessed. ?Estimated sPAP is 23.0 mmHg. Estimated RVSP is 23.0 mmHg. RAP is 3.0 mmHg. Mean PA pressure of 15 mmHg. PVR < 1.5 Wood units. ?Normal valve morphology nd function. ?No pericardial effusion. ?Normal sized annulus, sinus of Valsalva (aortic root), ascending aorta, aortic arch, descending aorta and abdominal aorta. Normal echocardiogram by 2D, m-mode, color and spectral Doppler echocardiography. Left Ventricle Left ventricle size is normal. EDV Index BP is 55.3 mL/m2. ESV Index BP is 18.3 mL/m2. Normal wall thickness. LVPWd is 1.01 cm. Ventricular mass is normal. Mass index 2D is 61.25 g/m2. Normal systolic function with a visually estimated EF of 65 - 70%. EF by 2D Abarca biplane is 67%. Normal wall motion. Normal diastolic function. Normal mean left atrial pressure. Tissue Doppler velocity is reduced. MV peak E velocity is 102.695 cm/s. MV e' lateral velocity is 14.141 cm/s. MV e' septal velocity is 10.702 cm/s. Right Ventricle Right ventricle size is normal. Normal free wall thickness. RV wall thickness is 0.5 cm. Normal wall motion. Normal systolic function. TAPSE is 2.324 cm. Fractional area change (FAC) is 49.70%. Left Atrium Left atrium size is normal. Left atrium volume index is 25.1 mL/m2. The interatrial septum appears normal with no evidence of a shunt by color flow Doppler. No mass present. Right Atrium Right atrium size is normal. No mass present. IVC/SVC IVC diameter is less than or equal to 21 mm and decreases greater than 50% during inspiration; therefore the estimated right atrial pressure is normal (~3 mmHg). IVC is normal in size. SVC was not assessed. Mitral Valve Valve structure is normal. No leaflet thickening. No restricted motion. Trace regurgitation. No stenosis. MV mean gradient is 2 mmHg. MV area by planimetry is 5.39 cm2. Tricuspid Valve Valve structure is normal. No leaflet thickening. No restricted motion. Trace regurgitation. Estimated sPAP is 23.0 mmHg. Estimated RVSP is 23.0 mmHg. RAP is 3.0 mmHg. Mean PA pressure of 15 mmHg. PVR < 1.5 Wood units. No stenosis. Aortic Valve Valve structure is trileaflet. No restricted motion. No regurgitation. No stenosis. AV mean gradient is 5 mmHg. AV peak gradient is 10 mmHg. AV peak velocity is 1.59 m/s. AV area by continuity VTI is 2.5 cm2. AV area by peak velocity is 2.4 cm2. Pulmonic Valve Valve structure is normal. No cusp thickening. No restricted motion. No regurgitation. No stenosis. PV mean gradient is 2 mmHg. PV area by continuity equation is 3.8 cm2. Ascending Aorta Normal sized annulus, sinus of Valsalva (aortic root), ascending aorta, aortic arch, descending aorta and abdominal aorta. Pericardium The pericardium is normal. No pericardial effusion. Study Details Study quality was good. A complete 2D, color Doppler, spectral Doppler and M- mode echocardiogram was performed. The apical, parasternal and subcostal views were obtained. Definity ultrasound enhancing agent used. Patient exhibited sinus rhythm. Technical difficulties due to poor acoustic windows. Prior Study Prior TTE study available for comparison. Prior study date: 10/20/2022. No significant changes noted compared to the prior study. Wall Scoring Baseline Score Index: 1.00 The left ventricular wall motion is normal. Jaime Drew MD ECHO CUPID * (ABNORMAL) D-DIMER (11/06/2022 1:36 AM CDT) [facility] D-Dimer Quantitative 2.30(H) <=0.50 mcg/mL FEU 11/06/2022 1:54 AM CDT [facility] Comment: In the absence of clinical symptoms, a value less than or equal to 0.5 mcg/mL FEU significantly decreases the probability of PE/DVT (negative predictive value >95%). 1 mcg/mL FEU = 1 Fibrinogen Equivalent Unit (approximates 0.5 mcg/ml of D- Dimer). ?ISTH DIAGNOSTIC SCORING SYSTEM FOR DIC ?Score ?0 ? 1 ? 2 ?3 ?? Platelet Count(x10^3/uL) ?> 100 ?? < 100 ?? < 50 ?N/A PT Prolongation above ? upper limit of normal ?0-3 ? 3-6 ? > 6 ?N/A range (seconds) ? Fibrinogen (mg/dL) ?> 100 ?? < 100 ?N/A ?N/A D-Dimer (mcg/mL FEU) ? < 0.50 ?N/A ? 0.50-5.0 ??> 5 Calculate Cumulative Score: > or = 5 :compatible with overt DIC ? < 5 :suggestive for non-overt DIC N/A = Non applicable Reference: Br. J. Haematol. 145:24-33,2009. Blood BLOOD SPECIMEN / Unknown Venipuncture / Unknown 11/06/2022 1:36 AM CDT 11/06/2022 1:39 AM CDT Jaime Drew MD LAB - COAGULATION OR DERABLES [facility] [address] [place] [address], [facility] [phone] * XR ABDOMEN KUB PORTABLE (11/05/2022 5:28 PM CDT) Only the most recent of5 resultswithin the time period is included. Anatomical Region Laterality Modality Abdomen Radiographic Irene ging 11/06/2022 7:14 AM CDT Impressions 11/06/2022 10:30 PM CDT IMPRESSION: Non-obstructive bowel gas pattern. Report dictated by Mc Castro MD, (anesthesia resident). I, Pepe Gonzalez MD have personally reviewed and interpreted this examination/study. > Interpreting Provider: Pepe Gonzalez MD on 11/06/2022 10:30 PM Narrative 11/06/2022 10:30 PM CDT PROCEDURE: ??XR ABDOMEN KUB PORTABLE, DATE/TIME OF EXAM: ??11/05/2022 5:28 PM, LOCATION ??[facility] INDICATION: R50.9: Fever, unspecified fever cause ADDITIONAL CLINICAL INFORMATION: Ordering Provider Reason For Exam: ??constipation Technologist Note: Additional: COMPARISON: 10/28/2022 KUB FINDINGS: PEG tube overlying left upper quadrant. Interval removal of enteric tube. There is no dilatation of small or large bowel. No pneumoperitoneum or pathological calcification is seen. The visible osseous structures are intact. The lung bases are clear. Procedure Note Pepe Gonzalez MD - 11/06/2022 PROCEDURE: XR ABDOMEN KUB PORTABLE, DATE/TIME OF EXAM: 11/05/2022 5:28PM, LOCATION [facility] INDICATION: R50.9: Fever, unspecified fever cause ADDITIONAL CLINICAL INFORMATION: Ordering Provider Reason For Exam: constipation Technologist Note: Additional: COMPARISON: 10/28/2022 KUB FINDINGS: PEG tube overlying left upper quadrant. Interval removal of enterictube. There is no dilatation of small or large bowel. No pneumoperitoneum or pathological calcification is seen. The visible osseous structures are intact. The lung bases are clear. IMPRESSION: Non-obstructive bowel gas pattern. Report dictated by Mc Castro MD, (anesthesia resident). I, Pepe Gonzalez MD have personally reviewed and interpreted this examination/study. > Interpreting Provider: Pepe Gonzalez MD on 11/06/2022 10:30 PM Jaime Drew MD DIAGNOSTIC IMAGING O RDERABLES * RESPIRATORY PANEL WITH SARS-COV-2 BY PCR (ST) (11/05/2022 1:10 PM CDT) Adenovirus PCR Not detected Not detected 11/05/2022 5:32 PM CDT [facility] Coronavirus 229E PCR Not detected Not detected 11/05/2022 5:32 PM CDT [facility] Coronavirus HKU1 PCR Not detected Not detected 11/05/2022 5:32 PM CDT [facility] Coronavirus NL63 PCR Not detected Not detected 11/05/2022 5:32 PM CDT [facility] Coronavirus OC43 PCR Not detected Not detected 11/05/2022 5:32 PM CDT [facility] COVID-19 PCR Not detected Not detected 11/05/2022 5:32 PM CDT [facility] Human Metapneumovirus PCR Not detected Not detected 11/05/2022 5:32 PM CDT [facility] Human Rhinovirus/Enterov irus PCR Not detected Not detected 11/05/2022 5:32 PM CDT [facility] Influenza A PCR Not detected Not detected 11/05/2022 5:32 PM CDT [facility] Influenza B PCR Not detected Not detected 11/05/2022 5:32 PM CDT [facility] Parainfluenza Virus 1 PCR Not detected Not detected 11/05/2022 5:32 PM CDT [facility] Parainfluenza Virus 2 PCR Not detected Not detected 11/05/2022 5:32 PM CDT [facility] Parainfluenza Virus 3 PCR Not detected Not detected 11/05/2022 5:32 PM CDT [facility] Parainfluenza Virus 4 PCR Not detected Not detected 11/05/2022 5:32 PM CDT [facility] Respiratory Syncytial Virus PCR Not detected Not detected 11/05/2022 5:32 PM CDT [facility] Bordetella parapertussis PCR Not detected Not detected 11/05/2022 5:32 PM CDT [facility] Bordetella pertussis PCR Not detected Not detected 11/05/2022 5:32 PM CDT [facility] Chlamydia pneumoniae PCR Not detected Not detected 11/05/2022 5:32 PM CDT [facility] Mycoplasma pneumoniae PCR Not detected Not detected 11/05/2022 5:32 PM CDT [facility] Microbiology SPECIMEN FROM NASOPHARYNGEAL STRUCTURE / Unknown Collection / Unknown 11/05/2022 1:10 PM CDT 11/05/2022 1:41 PM CDT Narrative [facility] - 11/05/2022 5:32 PM CDT This nucleic amplification assay has received FDA authorization via the [employer]. Jaime Drew MD LAB - MICROBIOLOGY O RDERABLES [facility] [address] [place] [address], [facility] [phone] * (ABNORMAL) URINALYSIS REFLEX TO MICROSCOPIC NO CULTURE (11/05/2022 12:54 PM CDT) Color UA Yellow Straw, Yellow 11/05/2022 1:53 PM CDT [facility] Clarity UA Slt Cloudy(A) Clear 11/05/2022 1:53 PM CDT [facility] Specific [place] UA 1.016 1.005 - 1.030 11/05/2022 1:53 PM [facility] pH UA 7.0 5.0 - 8.0 pH 11/05/2022 1:53 PM [facility] Protein UA Negative Negative 11/05/2022 1:53 PM [facility] Glucose UA Negative Negative 11/05/2022 1:53 PM [facility] Ketone UA Negative Negative 11/05/2022 1:53 PM [facility] Bilirubin UA Negative Negative 11/05/2022 1:53 PM [facility] Blood UA 1+(A) Negative 11/05/2022 1:53 PM [facility] Nitrite UA Negative Negative 11/05/2022 1:53 PM [facility] Leukocyte Esterase Negative Negative 11/05/2022 1:53 PM [facility] Urobilinogen UA Negative Negative mg/dL 11/05/2022 1:53 PM [facility] RBC UA 51-100(A) None Seen, 0-2, 3-5 /HPF 11/05/2022 1:53 PM [facility] WBC UA 6-10(A) None Seen, 0-5 /HPF 11/05/2022 1:53 PM [facility] Bacteria UA Trace(A) None /HPF 11/05/2022 1:53 PM [facility] Squamous Epithelial Cells UA 0-2 None Seen, 0-2, 3-5 /HPF 11/05/2022 1:53 PM [facility] Mucus UA 1+ /LPF 11/05/2022 1:53 PM [facility] Amorphous Crystals Rare(A) None /HPF 11/05/2022 1:53 PM [facility] Urine URINE SPECIMEN OBTAINED BY SINGLE CATHETERIZATION OF URINARY BLADDER / Unknown Collection / Unknown 11/05/2022 12:54 PM CDT 11/05/2022 1:41 PM CDT [facility] - 11/05/2022 1:53 PM CDT Jaime Drew MD LAB - URINALYSIS ORD ERABLES [facility] [address] [address], [facility] [phone] * BLOOD GAS ART+LYTES+METAB+COOX POC NOTIF (11/05/2022 11:16 AM CDT) Only the most recent of3 resultswithin the time period is included. [facility] Comment Notification Label Only - See Separate Report 11/05/2022 2:01 PM CDT [facility] Other MISCELLANEOUS SAMPLES / Unknown 11/05/2022 11:16 AM CDT 11/05/2022 12:52 PM CDT Manuel Ramirez MD LAB - BLOOD GASES ORDERABLES Performing Organization Address City/[facility]/ZIP Co de Phone Number [address] [address], [facility] [phone] * HEPATITIS C AB SCREEN RFLX NAAT QUANT (11/02/2022 4:45 AM CDT) Only the most recent of2 resultswithin the time period is included. [facility] Hepatitis C Antibody Non-react tiffany Non-reac tive 11/02/2022 5:56 AM CDT [facility] Comment:Hepatitis C Antibody screen indicates no [...] Walter MD LAB - CHEMISTRY ORD ERABLES [address] [address], [facility] [phone] * EXPOSURE HIV (11/02/2022 4:45 AM CDT) [facility] HIV Antigen/Antibo dy 1 & 2 Non-reacti ve Non-reacti ve 11/02/2022 5:56 AM CDT [facility] Blood BLOOD SPECIMEN / Unknown Venipuncture / Unknown 11/02/2022 4:45 AM CDT 11/02/2022 4:56 AM CDT Jim Walter MD LAB - CHEMISTRY ORD ERABLES Performing Organization Address [facility] Co de Phone Number [address] [address], [facility] [phone] * (ABNORMAL) HEPATITIS B PANEL (11/02/2022 4:45 AM CDT) Hepatitis B Virus Surface Antibody Reactive(A ) Non-react tiffany 11/02/2022 5:55 AM CDT [facility] Comment: > 12 mIU/mL Hepatitis B surface Antibody (HBsAb). Reactive for HBsAb - individual is considered immune to Hepatitis B Virus infection. Hepatitis B Virus Surface Antigen Non-reacti ve Non-react tiffany 11/02/2022 5:55 AM CDT [facility] Hepatitis B Core Virus Antibody IgM Non-reacti ve Non-react tiffany 11/02/2022 5:55 AM CDT [facility] Blood BLOOD SPECIMEN / Unknown Venipuncture / Unknown 11/02/2022 4:45 AM CDT 11/02/2022 4:56 AM CDT Jim Walter MD LAB - CHEMISTRY ORD ERABLES Performing Organization Address City/[facility]/ZIP Co de Phone Number [address] [phone], [facility] [phone] * CT ABDOMEN WO CONTRAST (2022 6:47 PM CDT) Anatomical Region Laterality Modality Abdomen Computed Tomogra phy 2022 7:20 PM CDT Impressions 11/02/2022 1:18 AM CDT Impression: Interval placement of a percutaneous gastrostomy tube with intraluminal placement of tip and inflated balloon within the body/antrum of the stomach without complication, as clinically queried.. > Dictated by Tim Major MD (anesthesia resident). I, Pepe Gonzalez MD have personally reviewed and interpreted this examination/study. > Interpreting Provider: Pepe Gonzalez MD on 11/02/2022 1:18 AM Narrative 11/02/2022 1:18 AM CDT PROCEDURE: ??CT ABDOMEN WO CONTRAST, DATE/TIME OF EXAM: ??2022 6:47 PM, LOCATION ??[facility] INDICATION: Z93.1: Presence of externally removable percutaneous endoscopic gastrostomy (PEG) tube (CMS/HCC) ADDITIONAL CLINICAL INFORMATION: Ordering Provider Reason For Exam: ??diffcult percutaneous PEG tube placement, rule out complications COMPARISON: CT abdomen pelvis with contrast dated 10/31/2022 TECHNIQUE: CT of the chest, abdomen, and pelvis was performed without contrast according to standard protocol. Findings: Evaluation of visceral and vascular structures is degraded due to lack of intravenous contrast administration. Lines/tubes: *Interval placement of a percutaneous gastrostomy tube with intraluminal placement of tip and inflated balloon within the body/antrum of the stomach. Liver: Within the limitations of a noncontrast examination, the liver is unremarkable. Gallbladder and Bile Ducts: The gallbladder surgically absent with multiple surgical clips noted within the gallbladder fossa. Spleen: Normal. Pancreas: Normal. Adrenals: Normal. Kidneys: Normal. Gastrointestinal: A duodenal diverticulum is present. Otherwise, the stomach and visualized loops of large and small bowel are unremarkable. Mesentery/Peritoneum/Retroperitoneum: Normal. Abdominal Vasculature: No vascular abnormality is present. Bones: Bone windows demonstrate no suspicious lytic or blastic lesions. The visible osseous structures are intact. Soft tissues: Normal. Procedure Note Pepe Gonzalez MD - 11/02/2022 PROCEDURE: CT ABDOMEN WO CONTRAST, DATE/TIME OF EXAM: 2022 6:47PM, LOCATION [facility] INDICATION: Z93.1: Presence of externally removable percutaneous endoscopicgastrostomy (PEG) tube (CMS/HCC) ADDITIONAL CLINICAL INFORMATION: Ordering Provider Reason For Exam: diffcult percutaneous PEG tube placement, rule out complications COMPARISON: CT abdomen pelvis with contrast dated 10/31/2022 TECHNIQUE: CT of the chest, abdomen, and pelvis was performed without contrast according to standard protocol. Findings: Evaluation of visceral and vascular structures is degraded due to lackof intravenous contrast administration. Lines/tubes: *Interval placement of a percutaneous gastrostomy tube with intraluminal placement of tip and inflated balloon within the body/antrum of the stomach. Liver: Within the limitations of a noncontrast examination, the liver is unremarkable. Gallbladder and Bile Ducts: The gallbladder surgically absent with multiple surgical clips notedwithin the gallbladder fossa. Spleen: Normal. Pancreas: Normal. Adrenals: Normal. Kidneys: Normal. Gastrointestinal: A duodenal diverticulum is present. Otherwise, the stomach andvisualized loops of large and small bowel are unremarkable. Mesentery/Peritoneum/Retroperitoneum: Normal. Abdominal Vasculature: No vascular abnormality is present. Bones: Bone windows demonstrate no suspicious lytic or blastic lesions. The visible osseous structures are intact. Soft tissues: Normal. Impression: Interval placement of a percutaneous gastrostomy tube with intraluminal placement of tip and inflated balloon within the body/antrum of thestomach without complication, as clinically queried.. > Dictated by Tim Major MD (anesthesia resident). I, Pepe Gonzalez MD have personally reviewed and interpreted this examination/study. > Interpreting Provider: Pepe Gonzalez MD on 11/02/2022 1:18 AM Jim Walter MD CT ORDERABLES * EGD (2022 2:14 PM CDT) Report Endoscopy POC Endoscopy Department Report _ Patient Name: Consuelo Darby ?Procedure Date: 2022 2:14 PM ?Date of : 1980 Classification: Inpatient ? Gender: Female Ethnicity: Not or ? Race: White _ Providers: ?Khanh Metz MD, Jerod Calderon (Fellow) Referring : ? Procedure: ?Upper GI endoscopy Indications: ?Oropharyngeal phase dysphagia, Place PEG due to ?neurological disorder causing impaired swallowing Medications: ?Monitored Anesthesia Care Description of Procedure: After obtaining informed consent, the endoscope was ?passed under direct vision. Throughout the ?procedure, the patient's blood pressure, pulse, and ?oxygen saturations were monitored continuously. The ?Endoscope was introduced through the mouth, and ?advanced to the second part of duodenum. The upper ?GI endoscopy was accomplished without difficulty. ?The patient tolerated the procedure well. ? Findings: ? A 1 cm hiatal hernia was present. ? The exam of the esophagus was otherwise normal. ? Erosive gastritis characterized by shallow ulcerations was found in the ? gastric body, c/w acute stress gastritis, mild. ? The exam of the stomach was otherwise normal. ? The examined duodenum was normal. ? The cardia and gastric fundus were normal on retroflexion. ? The patient was placed in the supine position for PEG placement. The ? stomach was insufflated to appose gastric and abdominal mejia. Multiple ? trials were required due to obesity in order to find a site was located ? in the body of the stomach with adequate transillumination and manual ? external pressure for placement. The abdominal wall was marked and ? prepped in a sterile manner. The area was anesthetized with 10 mL of 1% ? lidocaine. The trocar needle was introduced through the abdominal wall ? and into the stomach under direct endoscopic view. A snare was ? introduced through the endoscope and opened in the gastric lumen. The ? guide wire was passed through the trocar and into the open snare. The ? snare was closed around the guide wire. The endoscope and snare were ? removed, pulling the wire out through the mouth. A skin incision was ? made at the site of needle insertion. The externally removable 24 Fr ? [employer] gastrostomy tube was lubricated. The G-tube was tied to the ? guide wire and pulled through the mouth and into the stomach. The trocar ? needle was removed, and the gastrostomy tube was pulled out from the ? stomach through the skin. The external bumper was attached to the ? gastrostomy tube, and the tube was cut to remove the guide wire. The ? final position of the gastrostomy tube was confirmed by relook ? endoscopy, and skin marking noted to be 6 cm at theskin and 8 cm at the ? external bumper. The final tension and compression of the abdominal wall ? by the PEG tube and external bumper were checked and revealed that the ? bumper was loose and not touching the skin and that the PEG balloon was ? loose and not touching the stomach. The feeding tube was capped, and the ? tube site cleaned and dressed. ? Estimated Blood Loss: ? Estimated blood loss was minimal. Complications: ?No immediate complications. Impression: ? - 1 cm hiatal hernia. ?- Erosive stress gastritis. ?- Normal examined duodenum. ?- An externally removable PEG placement was ?successfully completed. Some difficuty encountered ?in finding a good location due to the thickness of ?the abdominal wall ?- No specimens collected. Recommendation: ? - CT scan (computed tomography) of the abdomen with ?contrast today to verify placemennt. ?- May use PEG for meds and H2O today. May resume ?TF's tomorrow after clearance by GI team. ?- IV PPI while in the hospital then po QD for 4 ?weeks ?- May resume Heparin today. Please avoid a loading ?dose if possible. ? Attending Participation: ??I was present and participated during the entire ?procedure, including non-darden portions. ? Procedure Code(s): ? --- Professional --- ? 04408, Esophagogastroduoden oscopy, flexible, transoral; with directed ? placement of percutaneous gastrostomy tube Diagnosis Code(s): ?--- Professional --- ?K44.9, Diaphragmatic hernia without obstruction or ?gangrene ?K29.60, Other gastritis without bleeding ?R13.12, Dysphagia, oropharyngeal phase ?R29.818, Other symptoms and signs involving the ?nervous system ?Z43.1, Encounter for attention to gastrostomy CPT copyright 2021 [employer]. All rights reserved. The codes documented in this report are preliminary and upon financial reserve clerk review may be revised to meet current compliance requirements. Khanh Metz MD 2022 3:26:58 PM Note Initiated On: 2022 2:14 PM Number of Addenda: 0 ? [facility] ? [address] [place] [address] [facility] 2022 2:14 PM CDT Khanh Metz MD GI PROCEDURE ORDERAB LES [facility] * FL GLENN W ANGIO TEAM (10/30/2022 2:40 PM CDT) Narrative [facility] - 10/30/2022 2:56 PM CDT Fluoroscopy was used for this exam in the OR. Please see the Operative report. Valdez Clay MD FLUOROSCOPY ORDERA BLES [facility] * TRANSFUSE RED BLOOD CELL LEUKOREDUCED UNIT(S) (10/30/2022 2:20 PM CDT) Valdez Clay MD NURSING - BLOOD VA OD TRANSFUSION * TRANSFUSE RED BLOOD CELL LEUKOREDUCED UNIT(S) (10/30/2022 1:53 PM CDT) Valdez Clay MD NURSING - BLOOD VA OD TRANSFUSION * ACT LR - POCT ([facility]) (10/30/2022 1:50 PM CDT) Only the most recent of6 resultswithin the time period is included. [facility] ACT LR 287 See result comments sec 10/30/2022 6:37 PM CDT [facility] Blood BLOOD SPECIMEN / Unknown 10/30/2022 1:50 PM CDT 10/30/2022 6:37 PM CDT Narrative [facility] - 10/30/2022 6:37 PM CDT ACT-LR [employer]rapeutics ranges are: Cardiac picket labor union = 200-300 seconds Sheath pull = ACT less than 170 seconds EPS lab = 200-240 seconds Sheath pull = ACT less than 140 seconds Radiology : CT/Angio lab = 200-300 seconds Sheath pull = ACT less than 200 seconds Expected range of normal volunteers: ACT-LR = 113-149 seconds Expected range of a Non-heparin patients: ACT-LR = 89-169 seconds From established ranges from the company manual Jim Walter MD LAB - COAGULATION O RDERABLES [facility] [address] [place] [address], [place] [phone] * (ABNORMAL) BLOOD GAS+COOX+LYTES+METAB ARTERIAL POCT (10/30/2022 1:33 PM CDT) Only the most recent of3 resultswithin the time period is included. Pathologist [facility] pH Arterial 7.40 7.35 - 7.45 pH 10/30/2022 1:33 PM CDT [facility] pO2 Arterial 228(H) 80 - 100 mmHg 10/30/2022 1:33 PM [facility] pCO2 Arterial 39 35 - 45 mmHg 1:33 PM [facility] HCO3 Arterial 24.2 20.0 - 30.0 mmol/L 10/30/2022 1:33 PM [facility] BE Arterial -0.5 -2.0 - 2.0 mmol/L 10/30/2022 1:33 PM [facility] Oxyhemoglobin Arterial 97.5 % 10/30/2022 1:33 PM [facility] Dexoyhemoglobin (HHB) % <1.0 % 10/30/2022 1:33 PM [facility] Methemoglobin <0.8 0.0 - 2.0 % 10/30/2022 1:33 PM [facility] Carboxyhemoglobin 1.4 0.0 - 2.0 % 2022 1:33 PM [facility] Comment:Carboxyhemoglobin No rmal Concentration: Non-smokers: 0-2%; Smokers: 0- 9%; Toxic: >20% O2 Content Arterial 11.3 Interpret within clinical context ml/dL 10/30/2022 1:33 PM [facility] Hemoglobin by COOX 7.8(L) 12.0 - 15.6 g/dL 10/30/2022 1:33 PM [facility] O2 Saturation Arterial 100 90 - 100 % 10/30/2022 1:33 PM [facility] Sodium Whole Blood 140 135 - 145 mmol/L 10/30/2022 1:33 PM [facility] Potassium Whole Blood 4.4 3.5 - 5.5 mmol/L 10/30/2022 1:33 PM [facility] Chloride WB 108(H) 78 - 107 mmol/L 10/30/2022 1:33 PM [facility] Calcium Ionized 1.30 mmol/L 1:33 PM [facility] Ionized Calcium pH Adjusted 1.30 1.19 - 1.34 mmol/L 10/30/2022 1:33 PM [facility] Anion Gap (AG) Arterial 12 8 - 18 mmol/L 10/30/2022 1:33 PM CDT [facility] Glucose WB 127(H) 70 - 115 mg/dL 10/30/2022 1:33 PM CDT [facility] Lactic Acid Whole Blood 0.9 <=2.0 mmol/L 10/30/2022 1:33 PM CDT [facility] Blood, arterial ARTERIAL BLOOD SPECIMEN / Unknown 10/30/2022 1:33 PM CDT 10/30/2022 1:34 PM CDT Jim Walter MD LAB - POINT OF CARE ORDERABLES Performing Organization Address [facility]/State/[facility] Co de Phone Number [facility] [address] [place] [address], [facility] [phone] * PATHOLOGY TISSUE (10/30/2022 12:18 PM CDT) Case Report Surgical Pathology Report ? Case: [id number] ? Authorizing Provider: ??Valdez Clay MD ?Collected: ? 10/30/2022 12:18 PM ? Ordering Location: ? [facility] 3N ICU ? Received: ?10/30/2022 01:28 PM ? Pathologist: ? Rayna Barrera MD ? Specimen: ?Thrombus, right femoral thrombus ? 11/04/2022 6:13 PM CDT [facility] Final Diagnosis Thrombus, right femoral, thrombectomy (A): - Thrombus 11/04/2022 6:13 PM CDT [facility] Microscopic Description and Comment Microscopic examination substantiates the final diagnosis. 11/04/2022 6:13 PM CDT [facility] Clinical History The patient is a 41 year old woman with right common femoral thrombosis. 11/04/2022 6:13 PM CDT [facility] Gross Description The requisition and specimen(s) are identified with the patient's name, Consuelo Darby. Received in formalin, specimen A , 1.7 x 0.7 x 0.3 cm aggregate of pink-duncan to red thrombus material. Entirely submitted in cassette A1. RB/CC 11/04/2022 6:[address] [facility] 11/04/2022 6:13 PM CDT [facility] Disclaimer The performance characteristics of all immunohistochemical and indirect immunofluorescence stains (if any) cited in this report were determined by the Histopathology Laboratory of [facility]. Some of these tests were developed by our own laboratory and have not been cleared or approved by the US Food and Drug Administration. The FDA does not require this test to go through premarket FDA review. These tests are used for clinical purposes. They should not be regarded as investigational or for research. This laboratory is certified under the Clinical Laboratory Improvement Amendments (CLIA) as qualified to perform high complexity clinical laboratory testing. This case has been personally reviewed and interpreted by the attending (teaching) pathologist. 11/04/2022 6:13 PM [facility] Embedded Images 11/04/2022 6:13 PM [facility] Resection without Tumor THROMBUS / Unknown 10/30/2022 12:18 PM CDT 10/30/2022 1:28 PM CDT Comment:Pre-op diagnosis: Critical limb-threatening ischemia Valdez Clay MD LAB - PATHOLOGY/CY TOLOGY ORDERABLES [facility] [address] [facility] [place] [address], [facility] [phone] * ETT LINE PERFORMABLE (10/30/2022 12:00 PM CDT) Narrative Sandra Zavala APRN-CRNA - 10/30/2022 12:00 PM CDT Sandra Zavala APRN-CRNA ? 10/30/2022 12:00 PM Endotracheal Tube Placement: ? Patient Location: OR. Intubation Event Date/Time: ??10/30/2022 10:44 AM Procedure: intubation (74563). Procedure Section: ?? Sedation: under general anesthesia. Indications for Airway Management: ??anesthesia Induction: standard IV Patient Position: ??sniffing Mask Ventilation: easy. Blade Type: Milana Blade Size: 3 Laryngoscopy View: grade 1 (full cords) Intubation Adjuncts: stylet Tube: endotracheal tube Placement: oral Tube type: cuff - inflated Tube Size (MM): 7 Depth of Insertion (CM): 21 Measured From: teeth Cuff volume (mL): ??6 Cuff Inflated With: air Number of Attempts: 1. Placement Verified By: direct visualization, chest auscultation, CO2 detector, CO2 monitor and bilateral breath sounds CXR Findings: ETT in proper place. Tube secured with: ??adhesive tape. Dentition unchanged? ??Yes Difficult Airway? ??No. Procedure Start Time: 10/30/2022 10:44 AM. Staff Section ? Anesthesia Provider: Sandra Zavala APRN-CRNA, Performed the procedure Additional Comments: Teeth and soft tissue as preop.. Manuel Ramirez MD GENERAL ANESTHESI A ORDERABLES * ARTERIAL LINE PERFORMABLE (10/30/2022 11:39 AM CDT) Narrative Sandra Zavala APRN-CRNA - 10/30/2022 11:39 AM CDT Sandra Zavala APRN-CRNA ? 10/30/2022 11:41 AM Arterial Line Placement Procedure Note Patient Location: OR. Procedure: Arterial Line (22460). Procedure Section ?? Indications: hypotension and blood sampling needed. Skin Prep: Chloraprep. Orientation: Left. Site: radial. Site Identification: ultrasound guided with sterile sleeve and gel. Sterile Technique: small sterile fenestrated drape, sterile gloves, mask and cap. Gauge: 20. Seldinger Technique Used? ??Yes Number of Attempts: 2. Line Secured with: Tegaderm and tape. Procedure Tolerance: tolerated well. Events: none. Procedure Start Time: 10/30/2022 11:14 AM. Patient Sedated? ??Yes Sedation Types: general anesthesia Staff Section ? Anesthesia Provider: Manuel Ramirez MD, Performed the procedure Additional Comments: Atraumatic placement of Silvana.. Manuel Ramirez MD GENERAL ANESTHESI A ORDERABLES * ANTITHROMBIN III ACTIVITY (10/27/2022 6:55 PM CDT) Pathologist [facility] Antithrombin III Activity 91.0 80.0 - 120.0 % 10/27/2022 7:42 PM CDT [facility] Blood BLOOD SPECIMEN / Unknown Venipuncture / Unknown 10/27/2022 6:55 PM CDT 10/27/2022 7:06 PM CDT Narrative [facility] - 10/27/2022 7:42 PM CDT Thrombin inhibitors (i.e., hirudin, argatroban...) present in the sample to be tested may lead to an over-estimation of the AT level. Shahbaz Bowen MD LAB - COAGULATION OR DERABLES Performing Organization Address [facility]/State/[facility] Co de Phone Number [facility] [address] [place] [address], [facility] [phone] * BARTONELLA HENSELAE ANTIBODY IGM (10/27/2022 11:58 AM CDT) Bartonella henselae Antibody IgM < 1:16 10/29/2022 8:33 PM CDT [facility] ([facility]) Comment: INTERPRETIVE INFORMATION: Bartonella henselae Antibody, IgM ??Less than 1:16 ...... Negative: No significant level of ?Bartonella henselae IgM antibody ?detected. ??1:16 or greater ..... Positive: Presence of IgM antibody ?to Bartonella henselae detected, ?suggestive of current or recent ?infection. The presence of IgM antibodies suggest recent infection, low levels of IgM antibodies may occasionally persist for more than 12 months post infection. This test was developed and its performance characteristics determined by [employer]. It has not been cleared or approved by the US Food and Drug Administration. This test was performed in a CLIA certified laboratory and is intended for clinical purposes. Performed By: [facility] [employer] [address] [place] [address] Conveyor Technician: Boo Bond MD, PhD [facility] Number: [id number] Blood BLOOD SPECIMEN / Unknown Venipuncture / Unknown 10/27/2022 11:58 AM CDT 10/27/2022 12:16 PM CDT Emir Vail MD LAB - SEROLOGY ORDER NISSA Performing Organization Address City/State/[facility] Co de Phone Number [facility]) [address] [place] [address], [facility] * BARTONELLA HENSELAE ANTIBODY IGG (10/27/2022 11:58 AM CDT) Bartonella henselae Antibody IgG <1:64 10/29/2022 8:33 PM CDT [facility] ([facility]) Comment: INTERPRETIVE INFORMATION: Bartonella henselae Ab, IgG ??Less than 1:64 ....... Negative: No significant level of ? Bartonella henselae IgG antibody ? detected. ??1:64 - 1:128 ......... Equivocal: Questionable presence ? of Bartonella henselae IgG ? antibody detected. Repeat testing ? in 10-14 days may be helpful. ??1:256 or greater ..... Positive: Presence of IgG ? antibody to Bartonella henselae ? detected, suggestive of current ? or past infection. A low positive suggests past exposure or infection, while high positive results may indicate recent or current infection, but are inconclusive for diagnosis. Seroconversion between acute and convalescent sera is considered strong evidence of recent infection. The best evidence for infection is significant change on two appropriately timed specimens where both tests are done in the same laboratory at the same time. This test was developed and its performance characteristics determined by [employer]. It has not been cleared or approved by the US Food and Drug Administration. This test was performed in a CLIA certified laboratory and is intended for clinical purposes. Performed By: [employer] [address] [place] [address] Conveyor Technician: Boo Bond MD, PhD CLIA Number: [id number] Blood BLOOD SPECIMEN / Unknown Venipuncture / Unknown 10/27/2022 11:58 AM CDT 10/27/2022 12:16 PM CDT Emir Vail MD LAB - SEROLOGY ORDER NISSA [employer] ([facility]) [address] [place] [address], [facility] * BARTONELLA SPECIES PCR (10/27/2022 11:58 AM CDT) Bartonella Source Plasma 023 3:38 PM CDT [facility] ([facility]) Bartonella Species by PCR Not Detected 2022 3:38 PM CDT [facility] ([facility]) Comment: NOT DETECTED - A negative result does not rule out the presence of PCR inhibitors in the patient specimen or assay specific nucleic acid in concentrations below the level of detection by the assay. INTERPRETIVE INFORMATION: Bartonella Species Detection by PCR This test was developed and its performance characteristics determined by [facility]. It has not been cleared or approved by the US Food and Drug Administration. This test was performed in a CLIA certified laboratory and is intended for clinical purposes. Performed By: [facility] [address] [place] [address] Conveyor Technician: Boo Bond MD, PhD CLIA Number: [id number] Blood BLOOD SPECIMEN / Unknown Venipuncture / Unknown 10/27/2022 11:58 AM CDT 10/27/2022 12:16 PM CDT Emir Vail MD LAB - MICROBIOLOGY O RDERABLES [facility]) [address] [place] [address], [facility] * Q FEVER IGG/IGM AB PANEL RFLX TITER (10/27/2022 11:58 AM CDT) Coxiella burnetii Antibody IgG Phase 1 Screen Negative Negative 10/31/2022 12:29 AM CDT [facility] ([facility]) Comment: INTERPRETIVE INFORMATION: C. Burnetii Abs, IgG Phase I Screen Acute Q fever is best demonstrated by a four-fold rise in phase II IgG titers when comparing two serum samples collected 3-6 weeks apart, and testing is performed in the same laboratory at the same time. ??Phase I IgG titers can increase during seroconversion. However, in the case of acute infection, the phase I titer should remain lower than the phase II titer. ?? IgM antibodies to phase II antigens provide ancillary information to IgG titers. Phase II IgM titers develop in the same time period of phase II IgG titers and can persist for over a year. ??A single phase II IgM positive result on an acute sample represents an early conversion or a false positive; testing of a convalescent serum is necessary. In the absence of an acute sample, a single convalescent serum sample with a phase II IgG titer greater than 1:128 in a patient who has been ill longer than 1 week indicates probable acute Q fever. Chronic Q fever is best demonstrated by a phase I titer greater than the phase II IgG titer. ??Phase I IgM antibodies may also develop concurrently with phase I IgG antibodies. However, in the absence of a phase I IgG titer, the diagnostic value of a phase I IgM titer is limited. ??Phase I and phase II IgM and IgG titers may remain elevated for months or years after acute infection or during convalescence. Coxiella burnetii (Q-Fever) Antibody IgG, Phase I is negative. No further testing will be performed. Coxiella burnetii Antibody IgG Phase 2 Screen Negative Negative 10/31/2022 12:29 AM [facility] ([facility]) Comment: INTERPRETIVE INFORMATION: C. Burnetii Abs, IgG Phase II Screen Acute Q fever is best demonstrated by a four-fold rise in phase II IgG titers when comparing two serum samples collected 3-6 weeks apart, and testing is performed in the same laboratory at the same time. ??Phase I IgG titers can increase during seroconversion. However, in the case of acute infection, the phase I titer should remain lower than the phase II titer. ?? IgM antibodies to phase II antigens provide ancillary information to IgG titers. Phase II IgM titers develop in the same time period of phase II IgG titers and can persist for over a year. ??A single phase II IgM positive result on an acute sample represents an early conversion or a false positive; testing of a convalescent serum is necessary. In the absence of an acute sample, a single convalescent serum sample with a phase II IgG titer greater than 1:128 in a patient who has been ill longer than 1 week indicates probable acute Q fever. Chronic Q fever is best demonstrated by a phase I titer greater than the phase II IgG titer. ??Phase I IgM antibodies may also develop concurrently with phase I IgG antibodies. However, in the absence of a phase I IgG titer, the diagnostic value of a phase I IgM titer is limited. ??Phase I and phase II IgM and IgG titers may remain elevated for months or years after acute infection or during convalescence. Coxiella burnetii (Q-Fever) Antibody IgG, Phase II is negative. No further testing will be performed. Coxiella burnetii Antibody IgM Phase 1 Screen Negative Negative 10/31/2022 12:29 AM [facility] ([facility]) Comment: Coxiella burnetii (Q-Fever) Antibody IgM, Phase I is negative. No further testing will be performed. INTERPRETIVE INFORMATION: C. burnetii (Q-Fever) Ab, ?Phase I IgM Acute Q fever is best demonstrated by a four-fold rise in phase II IgG titers when comparing two serum samples collected 3-6 weeks apart, and testing is performed in the same laboratory at the same time. ??Phase I IgG titers can increase during seroconversion. However, in the case of acute infection, the phase I titer should remain lower than the phase II titer. IgM antibodies to phase II antigens provide ancillary information to IgG titers. Phase II IgM titers develop in the same time period of phase II IgG titers and can persist for over a year. ??A single phase II IgM positive result on an acute sample represents an early conversion or a false positive; testing of a convalescent serum is necessary. In the absence of an acute sample, a single convalescent serum sample with a phase II IgG titer greater than 1:128 in a patient who has been ill longer than 1 week indicates probable acute Q fever. Chronic Q fever is best demonstrated by a phase I titer greater than the phase II IgG titer. ??Phase I IgM antibodies may also develop concurrently with phase I IgG antibodies. However, in the absence of a phase I IgG titer, the diagnostic value of a phase I IgM titer is limited. ??Phase I and phase II IgM and IgG titers may remain elevated for months or years after acute infection or during convalescence. Coxiella burnetii Antibody IgM Phase 2 Screen Negative Negative 10/31/2022 12:29 AM [facility] ([facility]) Comment: Coxiella burnetii (Q-Fever) Antibody IgM, Phase II is negative. No further testing will be performed. INTERPRETIVE INFORMATION: C. burnetii (Q-Fever) Ab, ?Phase II IgM Acute Q fever is best demonstrated by a four-fold rise in phase II IgG titers when comparing two serum samples collected 3-6 weeks apart, and testing is performed in the same laboratory at the same time. ??Phase I IgG titers can increase during seroconversion. However, in the case of acute infection, the phase I titer should remain lower than the phase II titer. IgM antibodies to phase II antigens provide ancillary information to IgG titers. Phase II IgM titers develop in the same time period of phase II IgG titers and can persist for over a year. ??A single phase II IgM positive result on an acute sample represents an early conversion or a false positive; testing of a convalescent serum is necessary. In the absence of an acute sample, a single convalescent serum sample with a phase II IgG titer greater than 1:128 in a patient who has been ill longer than 1 week indicates probable acute Q fever. Chronic Q fever is best demonstrated by a phase I titer greater than the phase II IgG titer. ??Phase I IgM antibodies may also develop concurrently with phase I IgG antibodies. However, in the absence of a phase I IgG titer, the diagnostic value of a phase I IgM titer is limited. ??Phase I and phase II IgM and IgG titers may remain elevated for months or years after acute infection or during convalescence. Performed By: [employer] [address] [place] [address] Conveyor Technician: Boo Bond MD, PhD CLIA Number: [id number] Blood BLOOD SPECIMEN / Unknown Venipuncture / Unknown 10/27/2022 11:58 AM CDT 10/27/2022 12:16 PM CDT Emir Vail MD LAB - SEROLOGY ORDER NISSA [employer] ([facility]) [address] * MYCOPLASMA PNEUMONIAE AB IGG (10/27/2022 11:58 AM CDT) [facility] Mycoplasma Antibody IgG 0.05 <=0.09 U/L 10/29/2022 11:24 PM CDT [employer] ([facility]) Comment: INTERPRETIVE INFORMATION: ??Mycoplasma pneumoniae Ab, IgG ??0.09 U/L or less ............ Negative ??0.10 - 0.32 U/L ............. Equivocal ??0.33 U/L or greater ......... Positive INTERPRETIVE DATA: Over 50% of healthy adults have a relatively high background of specific M. pneumoniae IgG antibodies in their sera, probably because of past M. pneumoniae infections. Therefore, paired sera obtained with a time interval of 1 to 3 weeks are highly recommended in adults to confirm reinfection by M. pneumoniae, which is demonstrated by a significant change in IgG antibodies. A significant change is indicated if one sample is above 0.32 U/L and the other is below 0.20 U/L. Performed By: [facility] [employer] [address] [place] [address] Conveyor Technician: Boo Bond MD, PhD CLIA Number: [id number] Blood BLOOD SPECIMEN / Unknown Venipuncture / Unknown 10/27/2022 11:58 AM CDT 10/27/2022 12:16 PM CDT Emir Vail MD LAB - SEROLOGY ORDER NISSA [facility] [facility]) [address] [place] [address], [facility] * MYCOPLASMA PNEUMONIAE AB IGM (10/27/2022 11:58 AM CDT) Mycoplasma Antibody IgM 0.09 <=0.76 U/L 10/29/2022 11:24 PM CDT [facility] [employer] ([facility]) Comment: INTERPRETIVE INFORMATION: ??Mycoplasma pneumoniae Ab, IgM ??0.76 U/L or less .......... Negative: No clinically ?significant amount of ?M. pneumoniae IgM antibody ?detected. ??0.77 - 0.95 U/L ........... Low Positive: M. pneumoniae- ?specific IgM presumptively ?detected. Collection of a ?follow-up sample in 1-2 ?weeks is recommended to ?assure reactivity. ??0.96 U/L or greater ....... Positive: Highly significant ?amount of M. pneumoniae- ?specific IgM antibody ?detected. However, low levels ?of IgM antibodies may ?occasionally persist for more ?than 12 months post-infection. Performed By: [employer] [address] [place] [id number] Conveyor Technician: Boo Bond MD, PhD CLIA Number: [id number] Blood BLOOD SPECIMEN / Unknown Venipuncture / Unknown 10/27/2022 11:58 AM CDT 10/27/2022 12:17 PM CDT Emir Vail MD LAB - SEROLOGY ORDER NISSA [facility]) [address] [place] [address], [facility] * CHLAMYDIA ANTIBODY IGG/IGM PANEL (10/27/2022 11:58 AM CDT) C Pneumoniae Antibody IgG Titer <1:64 <1:64 10/29/2022 8:32 PM CDT [facility] ([facility]) Chlamydia Pneumoniae Antibody IgM Titer <1:20 <1:20 10/29/2022 8:32 PM CDT [facility]) Chlamydia trachomatis Antibody IgM Titer <1:20 <1:20 10/29/2022 8:32 PM CDT [facility]) Chlamydia psittacI Antibody IgM Titer <1:20 <1:20 10/29/2022 8:32 PM CDT [facility]) Chlamydia trachomatis Antibody IgG Titer <1:64 <1:64 10/29/2022 8:32 PM CDT [facility] ([facility]) Chlamydia psittacI Antibody IgG Titer <1:64 <1:64 10/29/2022 8:32 PM CDT [facility]) Comment: INTERPRETIVE INFORMATION: C. psittaci IgG Titer The Chlamydia antibody test contains both species- and genus- specific antigens, and serological cross-reactions may be seen in both acute and convalescent samples (less than 1:128). A C. pneumoniae-specific reaction will exhibit titers twofold or greater than titers observed with the C. trachomatis or C. psittaci serology. Any IgG titer may indicate past exposure to that particular species. IgG titers in recently infected individuals are typically greater than or equal 1:512. The Chlamydia microimmunofluorescent assay slides utilize C. psittaci, C. pneumoniae, and nine serotypes of C. trachomatis. The LGV strains of C. trachomatis are not included in this assay. This test was developed and its performance characteristics determined by [employer]. It has not been cleared or approved by the US Food and Drug Administration. This test was performed in a CLIA certified laboratory and is intended for clinical purposes. Performed By: [employer] [address] [place] [address] Conveyor Technician: Boo Bond MD, PhD CLIA Number: [id number] Blood BLOOD SPECIMEN / Unknown Venipuncture / Unknown 10/27/2022 11:58 AM CDT 10/27/2022 12:17 PM CDT Emir Vail MD LAB - CHEMISTRY BIBIANA BLACKMAN [facility] Namshi ([facility]) [address] [place], [place] [address] * CULTURE BLOOD FUNGUS (10/27/2022 11:58 AM CDT) Culture No fungus isolated ROSELIA 12/04/2022 6:[address] [facility] MICROBIOLOGY Blood PERIPHERAL BLOOD / Unknown Venipuncture / Unknown 10/27/2022 11:58 AM CDT 10/27/2022 12:13 PM CDT Emir Vail MD LAB - MICROBIOLOGY O DIONI Performing Organization Address City/[facility]/ZIP Co de Phone Number [facility]CROBIOLOGY [address] [place] [address] [phone] * CULTURE BLOOD AFB (10/27/2022 11:58 AM CDT) Culture No acid-fast bacillus isolated 12/04/2022 6:56 AM CDT [facility] MICROBIOLOGY Blood PERIPHERAL BLOOD / Unknown Venipuncture / Unknown 10/27/2022 11:58 AM CDT 10/27/2022 12:13 PM CDT Emir Vail MD LAB - MICROBIOLOGY O DIONI Performing Organization Address City/[facility]/ZIP Co de Phone Number [facility]CROBIOLOGY [address] [place] [address] [phone] * VAS ARTERIAL MULTILEVEL LE (10/26/2022 2:59 PM CDT) Anatomical Region Laterality Modality Intravascular Ul trasound 10/26/2022 1:32 AM CDT Narrative Procedure Note Daniella Jose MD - 10/27/2022 Emir Vail MD VASCULAR LAB ORDERAB LES * LAB MISC TEST (10/26/2022 7:37 AM CDT) Only the most recent of2 resultswithin the time period is included. 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 There is adjacent soft tissue stranding. 2. Left upper lobe pulmonary nodule measuring [address] follow-up at at 12 months may be considered if patient is at increased risk for malignancy. 3.Otherwise no acute process in the chest abdomen or pelvis Findings discussed with Dr. Mohr by Dr. Clarisa Cantrell at 10/25/2022 3:03 PM with read back comprehension and verification. > Dictated by Clarisa Cantrell MD (anesthesia resident). Alexx Ornelas have personally reviewed and interpreted this examination/study. 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 TECHNIQUE: CT of the chest, abdomen, and pelvis was performed after the uneventful administration of 100 mL of Isovue 370 intravenous contrast according to standard protocol. Findings: Chest: Lower Neck and Axillae: Normal. Lungs: Subsegmental atelectasis of the posterior lungs. No pleural fluid or pneumothorax is present. There is a 3 mm nodule in the left upper lobe (image 47 series 5). Heart and Pericardium: The cardiac chambers are normal in size. No pericardial fluid or thickening is present. Mediastinum and Isabel: No mediastinal hemorrhage is present. No enlarged lymph nodes are present. Thoracic Vasculature: No vascular abnormality is present. Abdomen/pelvis: Liver: Normal. Gallbladder and Bile Ducts: The gallbladder is surgically absent. No biliary dilatation.. Spleen: Normal. Pancreas: Normal. Adrenals: Normal. Kidneys: Normal. Gastrointestinal: An enteric tube is present. The stomach and visualized loops of large and small bowel are unremarkable. The appendix is not seen; however, no inflammatory changes are seen in the right lower quadrant. Mesentery/Peritoneum/Retroperitoneum: No free intraperitoneal air. No free fluid in the abdomen or pelvis. Bladder: Normal. Reproductive Organs: The uterus is present. Abdominal Vasculature: Occlusion of the right distal external iliac artery and common femoral artery and the proximal proximal profunda femoris with distal reconstitution. There is adjacent soft tissue stranding. Bones: Bone windows demonstrate no suspicious lytic or blastic lesions. The visible osseous structures are intact. Soft tissues: Minimal stranding in the right groin. Subcutaneous gas in the lower left anterior abdominal wall related to subcutaneous injections. 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 TECHNIQUE: CT of the chest, abdomen, and pelvis was performed after the uneventful administration of 100 mL of Isovue 370 intravenous contrast according to standard protocol. Findings: Chest: Lower Neck and Axillae: Normal. Lungs: Subsegmental atelectasis of the posterior lungs. No pleural fluid or pneumothorax is present. There is a 3 mm nodule in the left upper lobe (image 47 series 5). Heart and Pericardium: The cardiac chambers are normal in size. No pericardial fluid orthickening is present. Mediastinum and Isabel: No mediastinal hemorrhage is present. No enlarged lymph nodes arepresent. Thoracic Vasculature: No vascular abnormality is present. Abdomen/pelvis: Liver: Normal. Gallbladder and Bile Ducts: The gallbladder is surgically absent. No biliary dilatation.. Spleen: Normal. Pancreas: Normal. Adrenals: Normal. Kidneys: Normal. Gastrointestinal: An enteric tube is present. The stomach and visualized loops of largeand small bowel are unremarkable. The appendix is not seen; however, no inflammatory changes are seen in the right lower quadrant. Mesentery/Peritoneum/Retroperitoneum: No free intraperitoneal air. No free fluid in the abdomen or pelvis. Bladder: Normal. Reproductive Organs: The uterus is present. Abdominal Vasculature: Occlusion of the right distal external iliac artery and common femoral artery and the proximal proximal profunda femoris with distal reconstitution. There is adjacent soft tissue stranding. Bones: Bone windows demonstrate no suspicious lytic or blastic lesions. The visible osseous structures are intact. Soft tissues: Minimal stranding in the right groin. Subcutaneous gas in the lower left anterior abdominal wall related to subcutaneous injections. 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 There is adjacent soft tissue stranding. 2. Left upper lobe pulmonary nodule measuring [address] follow-up at at12 months may be considered if patient is at increased risk for malignancy. 3.Otherwise no acute process in the chest abdomen or pelvis Findings discussed with Dr. Mohr by Dr. Clarisa Cantrell at 10/25/2022 3:03PM with read back comprehension and verification. > Dictated by Clarisa Cantrell MD (anesthesia resident). I, Aelxxmat Lopez have personally reviewed and interpreted this examination/study. > Interpreting Provider: Alexx Lopez on 10/25/2022 4:16 PM Emir Vail MD CT ORDERABLES * HIV-1 HIV-2 ANTIBODY + HIV P24 AG PANEL (10/25/2022 1:39 AM CDT) Pathologist [facility] HIV Antigen/Antibod y 1 & 2 Non-reacti ve Non-react tiffany 10/25/2022 2:56 AM CDT [facility] Comment:No Laboratory eviden ce of HIV infection. Blood BLOOD SPECIMEN / Unknown Venipuncture / Unknown 10/25/2022 1:39 AM CDT 10/25/2022 1:56 AM CDT Emir Vail MD [facility] Organization Address City/State/ZIP Co de Phone Number [address] [address], [facility] [phone] * (ABNORMAL) LUPUS ANTICOAGULANT PANEL (10/23/2022 8:29 PM CDT) Only the most recent of2 resultswithin the time period is included. APTT 21.4(L) 23.0 - 38.4 Seconds 10/24/2022 10:58 AM CDT [facility] PT 13.4 12.1 - 14.8 Seconds 10/24/2022 10:58 AM CDT [facility] INR 1.0 See Comment 10/24/2022 10:58 AM CDT [facility] Buffer 30.2 Seconds 023 10:58 AM CDT [facility] [place] Phospholipid 26.9 Seconds 10/24/2022 10:58 AM CDT [facility] [place] Delta 3.3 <8.0 Seconds 10/24/2022 10:58 AM CDT [facility] Interpretation [facility] Negative 10/24/2022 10:58 AM CDT [facility] Comment:Up to 15-20% of douglas ents with lupus anticoagulant associated with antiphospholipid antibody syndrome (APAS) will have negative [facility]-[place] results. For these patients we recommend additional testing to include the Dilute Edgar Viper Venom Time (DRVVT) test. Immunoassay measurements of anti-cardiolipin and anti-beta-2 glycoprotein 1 are recommended if the DRVVT, and STACLOT-LA tests are negative and there is clinical suspicion of APAS. Blood BLOOD SPECIMEN / Unknown Venipuncture / Unknown 10/23/2022 8:29 PM CDT 10/23/2022 8:43 PM CDT Emir Vail MD LAB - HEMATOLOGY ORD ERABLES Performing Organization Address City/[facility]/ZIP Co de Phone Number [address] [address], [facility] [phone] * CARDIOLIPIN ANTIBODY IGA (10/23/2022 8:29 PM CDT) Cardiolipin Antibody IgA <10 <=11 APL 10/26/2022 9:11 AM CDT [employer] ([facility]) Comment: INTERPRETIVE INFORMATION: Cardiolipin Antibodies, IgA <=11 APL: Negative 12-19 APL: Indeterminate 20-80 APL: Low to Moderately ??Positive 81 APL or above: High Positive Performed By: [employer] [address] [place] [address] Conveyor Technician: Boo Bond MD, PhD CLIA Number: [id number] Blood BLOOD SPECIMEN / Unknown Venipuncture / Unknown 10/23/2022 8:29 PM CDT 10/23/2022 9:19 PM CDT Emir Vail MD LAB - SEROLOGY ORDER NISSA Performing Organization Address City/[facility]/ZIP Co de Phone Number [employer] [facility]) [address] [place] [address], [facility] * CARDIOLIPIN ANTIBODY IGM (10/23/2022 8:29 PM CDT) Cardiolipin Antibody IgM <10 <=12 MPL 10/26/2022 1:32 AM CDT [employer] ([facility]) Comment: INTERPRETIVE INFORMATION: Anti-Cardiolipin IgM <=12 MPL: Negative 13-19 MPL: Indeterminate 20-80 MPL: Low to Moderately Positive 81 MPL or above: High Positive The persistent presence of IgG and/or IgM cardiolipin (CL) antibodies in moderate or high levels (greater than 40 GPL and/or greater than 40 MPL units) is a laboratory criterion for the diagnosis of antiphospholipid syndrome (APS). Persistence is defined as moderate or high levels of IgG and/or IgM CL antibodies detected ??in two or more specimens drawn at least 12 weeks apart (J Throm Haemost. 2006;4:295-306). Lower positive levels of IgG and/or IgM CL antibodies (above cutoff but less than 40 GPL and/or less than 40 MPL units) may occur in patients with the clinical symptoms of APS; therefore, the actual significance of these levels is undefined. Results should not be used alone for diagnosis and must be interpreted in light of APS-specific clinical manifestations and/or other criteria phospholipid antibody tests. Performed By: [employer] [address] [place] [address] Conveyor Technician: Boo Bond MD, PhD CLIA Number: [id number] Blood BLOOD SPECIMEN / Unknown Venipuncture / Unknown 10/23/2022 8:29 PM CDT 10/23/2022 9:18 PM CDT Emir Vail MD LAB - SEROLOGY ORDER NISSA [employer] [facility]) [address] [place] [address], [facility] * CARDIOLIPIN ANTIBODY IGG (10/23/2022 8:29 PM CDT) Cardiolipin Antibody IgG <10 <=14 GPL 10/26/2022 1:32 AM CDT [employer] ([facility]) Comment: INTERPRETIVE INFORMATION: Anti-Cardiolipin IgG Ab <=14 GPL: Negative 15-19 GPL: Indeterminate 20-80 GPL: Low to Moderately Positive 81 GPL or above: High Positive The persistent presence of IgG and/or IgM cardiolipin (CL) antibodies in moderate or high levels (greater than 40 GPL and/or greater ??than 40 MPL units) is a laboratory criterion for the diagnosis of antiphospholipid syndrome (APS). Persistence is defined as moderate or high levels of IgG and/or IgM CL antibodies detected in two or more specimens drawn at least 12 weeks apart (J Throm Haemost. 2006;4:295-306). Lower positive levels of IgG and/or IgM CL antibodies (above cutoff but less than 40 GPL and/or less than 40 MPL units) may occur in patients with the clinical symptoms of APS; therefore, the actual significance of these levels is undefined. Results should not be used alone for diagnosis and must be interpreted in light of APS-specific clinical manifestations and/or other criteria phospholipid antibody tests. Performed By: [employer] [address] [place] [address] Conveyor Technician: Boo Bond MD, PhD CLIA Number: [id number] Blood BLOOD SPECIMEN / Unknown Venipuncture / Unknown 10/23/2022 8:29 PM CDT 10/23/2022 9:19 PM CDT Emir Vail MD LAB - SEROLOGY ORDER NISSA Performing Organization Address [facility] de Phone Number [employer] [facility]) [address] [place] [address] * BETA-2 GLYCOPROTEIN 1 ANTIBODY IGA (10/23/2022 8:29 PM CDT) Beta-2 Glycoprotein Antibody IgA <10 <=20 TRUDI 10/26/2022 1:43 AM CDT [facility]) Comment: Performed By: [employer] [address] [place] [address] Conveyor Technician: Boo Bond MD, PhD CLIA Number: [id number] Blood BLOOD SPECIMEN / Unknown Venipuncture / Unknown 10/23/2022 8:29 PM CDT 10/23/2022 9:18 PM CDT Emir Vail MD LAB - SEROLOGY ORDER NISSA Performing Organization Address City/[facility]/ZIP Co de Phone Number [facility] ([facility]) [address] * BETA-2 GLYCOPROTEIN 1 ANTIBODY IGG/IGM PANEL (10/23/2022 8:29 PM CDT) [facility] Beta-2 Glycoprotein Antibody IgG <10 <=20 SGU 10/26/2022 1:43 AM CDT [facility] ([facility]) Beta-2 Glycoprotein Antibody IgM <10 <=20 SMU 10/26/2022 1:43 AM CDT [facility] ([facility]) Comment: INTERPRETIVE INFORMATION: [id number] I, IgG and IgM Antibody The persistent presence of IgG and/or IgM beta 2 glycoprotein I (B2GPI) antibodies is a laboratory criterion for the diagnosis of antiphospholipid syndrome (APS). Persistence is defined as moderate or high levels of IgG and/or IgM B2GPI antibodies detected in two or more specimens drawn at least 12 weeks apart (J Throm Haemost. 2006;4:295-306). B2GPI results greater than 20 SGU (IgG) and/or SMU (IgM) are considered positive based on the cutoff values established for this test. International reference materials and consensus units for anti-B2GPI antibodies have not been established (Clin Mirian Acta. 2012;413(1-2):358-60; Arthritis Rheum. 2012;64(1):1-10.); results can be variable between different commercial immunoassays and cannot be compared. Strong clinical correlation is recommended for a diagnosis of APS. Low positive IgG and IgM B2GPI antibody levels should be interpreted in light of APS-specific clinical manifestations and/or other criteria phospholipid antibody tests. Performed By: [employer] [address] [place] [address] Conveyor Technician: Boo Bond MD, PhD CLIA Number: [id number] Blood BLOOD SPECIMEN / Unknown Venipuncture / Unknown 10/23/2022 8:29 PM CDT 10/23/2022 9:19 PM CDT Emir Vail MD LAB - CHEMISTRY BIBIANA BLACKMAN Performing Organization Address [facility]/ZIP Co de Phone Number [facility] ([facility]) [address] * (ABNORMAL) ERYTHROCYTE SEDIMENTATION RATE (10/23/2022 3:47 PM CDT) Erythrocyte Sedimentation Rate Rin 55(H) 0 - 20 MM/HR 10/23/2022 4:25 PM CDT [facility] Blood BLOOD SPECIMEN / Unknown Line Draw / Unknown 10/23/2022 3:47 PM CDT 10/23/2022 3:59 PM CDT Emir Vail MD LAB - HEMATOLOGY ORD ERABLES [facility] [address] [place] [phone], [facility] [phone] * CT CARDIAC ANGIO STRUCT MORPH (10/23/2022 3:08 PM CDT) Anatomical Region Laterality Modality Chest Computed Tomogra phy 10/24/2022 11:5 1 PM CDT Impressions 10/25/2022 12:03 AM CDT Impression: 1. 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 2. 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 Procedure: CT structure and morphology with intravenous contrast material, including 3D image post-processing Acquisition mode: Retrospective ECG gated. ?? Contrast type and volume:Isovue .100 mL. Complications: None.. ?? Image quality: Good signal noise. There is motion artifact Heart rate: 99 bpm. Coronaries: The coronary arteries are not completely visualized due to motion artifact given the increase heart rate. Within the limitations, coronary arteries are normal in course and morphology and patent without calcification or plaque. Other cardiac findings: Left Atrium: The left atrium is normal size with no left atrial appendage filling defects. ?? Left Ventricle: The ventricular cavity size is within normal limits. ?? There is no stigmata of prior infarction. ??There is no abnormal filling defects. ?? Pulmonary arteries: Normal caliber without proximal filling defects. ?? Pulmonary veins: Normal pulmonary venous drainage. There were four noted pulmonary veins, two on the right and two on the left. Pericardium: Normal thickness with no significant effusion or calcium present. ?? Cardiac valves: There is a 6 mm lesion involving the noncoronary cusp of the aortic valve. The mitral valve is normal. ?? Aorta: Normal caliber with no significant disease. ?? Extra cardiac findings: Chest: Nasogastric tube partially visualized. Upper abdomen: No significant findings in the available limited view of the abdomen. Procedure Note Pepe Gonzalez MD - 10/25/2022 PROCEDURE: CT CARDIAC ANGIO STRUCT MORPH, DATE/TIME OF EXAM: 10/23/2022 3:08 PM, LOCATION [facility] INDICATION: I63.411: Acute cerebrovascular accident (CVA) due to embolism of right middle cerebral artery (CMS/HCC) ADDITIONAL CLINICAL INFORMATION: Ordering Provider Reason For Exam: L atrial valve vegetations Technologist Note: Additional: COMPARISON: None. Procedure: CT structure and morphology with intravenous contrast material,including 3D image post-processing Acquisition mode: Retrospective ECG gated. Contrast type and volume:Isovue .100 mL. Complications: None.. Image quality: Good signal noise. There is motion artifact Heart rate: 99 bpm. Coronaries: The coronary arteries are not completely visualized due to motionartifact given the increase heart rate. Within the limitations, coronary arteries are normal in course and morphology and patent without calcification or plaque. Other cardiac findings: Left Atrium: The left atrium is normal size with no left atrialappendage filling defects. Left Ventricle: The ventricular cavity size is within normal limits. There is no stigmata of prior infarction. There is no abnormal filling defects. Pulmonary arteries: Normal caliber without proximal filling defects. Pulmonary veins: Normal pulmonary venous drainage. There were four noted pulmonary veins, two on the right and two on the left. Pericardium: Normal thickness with no significant effusion or calcium present. Cardiac valves: There is a 6 mm lesion involving the noncoronary cusp of the aortic valve. The mitral valve is normal. Aorta: Normal caliber with no significant disease. Extra cardiac findings: Chest: Nasogastric tube partially visualized. Upper abdomen: No significant findings in the available limited view ofthe abdomen. Impression: 1. There is a 6 mm lesion involving the noncoronary cusp of the aortic valve, favored to represent a vegetation rather than a fibrosedhemangioma. 2. Patent coronary vessels within the limitation of the motion artifact given the elevated heart during this exam > Interpreting Provider: Pepe Gonzalez MD on 10/25/2022 12:03 AM Emir Vail MD CT ORDERABLES * MRSA DNA PCR (10/23/2022 12:34 PM CDT) [facility] MRSA DNA by PCR Not detected Not detected 10/23/2022 8:44 PM CDT [facility] Microbiology SPECIMEN FROM NASAL FOSSAE / Unknown Collection / Unknown 10/23/2022 12:34 PM CDT 10/23/2022 12:50 PM CDT Narrative [facility] - 10/23/2022 8:44 PM CDT Methicillin-resistant Staphylococcus aureus (MRSA) DNA is not detected (presumed not colonized with MRSA). Emir Vail MD LAB - MICROBIOLOGY O RDERABLES [facility] [address] [place], [address] [phone] * PLATELET COUNT AUTO CITRATED BLOOD (10/22/2022 1:53 AM CDT) [facility] Platelet Count Citrated Blood 199 150 - 400 10? 3 /uL 10/22/2022 2:21 AM CDT [facility] Blood BLOOD SPECIMEN / Unknown Venipuncture / Unknown 10/22/2022 1:53 AM CDT 10/22/2022 2:05 AM CDT Emir Vail MD LAB - HEMATOLOGY ORD ERABLES [facility] [address] [place] [address], [facility] [phone] * (ABNORMAL) BLOOD GASES ART + COOX PANEL (10/21/2022 8:[address] [facility]) Only the most recent of2 resultswithin the time period is included. pH Arterial 7.40 7.35 - 7.45 pH 10/21/2022 8:09 AM [facility] pO2 Arterial 143(H) 80 - 100 mmHg 10/21/2022 8:09 AM [facility] pCO2 Arterial 31(L) 35 - 45 mmHg 8:09 AM [facility] HCO3 Arterial 19.2(L) 20.0 - 30.0 mmol/L 10/21/2022 8:09 AM [facility] BE Arterial -4.8(L) -2.0 - 2.0 mmol/L 10/21/2022 8:09 AM [facility] CARE Oxyhemoglobin Arterial 97.2 % 10/21/2022 8:09 AM [facility] Dexoyhemoglobin (HHB) % <1.0 % 10/21/2022 8:09 AM [facility] Methemoglobin <0.8 0.0 - 2.0 % 10/21/2022 8:09 AM [facility] Carboxyhemoglobin 1.4 0.0 - 2.0 % 2022 8:09 AM [facility] O2 Content Arterial 13.6 Interpret within clinical context ml/dL 10/21/2022 8:09 AM [facility] Hemoglobin by COOX 9.7(L) 12.0 - 15.6 g/dL 10/21/2022 8:09 AM [facility] O2 Saturation Arterial 99 90 - 100 % 10/21/2022 8:09 AM [facility] FI O2 Arterial 30.0 % 10/21/2022 8:09 AM [facility] Blood, arterial ARTERIAL BLOOD SPECIMEN / Unknown Arterial Puncture / Unknown 10/21/2022 8:01 AM CDT 10/21/2022 8:05 AM CDT Narrative [facility] - 10/21/2022 8:09 AM CDT Carboxyhemoglobin Normal Concentration: Non-smokers: 0-2%; Smokers: 0-9%; Toxic: >20% Emir Vail MD LAB - BLOOD GASES OR DERABLES Performing Organization Address City/[facility]/ZIP Co de Phone Number [facility] [address] [place] [phone], [place] [phone] * TROPONIN-I HIGH SENSITIVE REFLEX 1HOUR (10/21/2022 7:53 AM CDT) Troponin I High Sensitive <3 <=14 ng/L 10/21/2022 8:54 AM CDT [facility] Delta Troponin I HS 10/21/2022 8:54 AM CDT [facility] Comment:Delta value intentio princess not calculated. Baseline to 1 hour specimen collection interval exceeded. Blood BLOOD SPECIMEN / Unknown Line Draw / Unknown 10/21/2022 7:53 AM CDT 10/21/2022 8:06 AM CDT Jim Walter MD LAB - CHEMISTRY ORD ERABLES Performing Organization Address City/[facility]/ZIP Co de Phone Number [address] [address], [place] [phone] * TROPONIN-I HIGH SENSITIVE BASELINE + 1HR (10/21/2022 4:59 AM CDT) Troponin I High Sensitive <3 <=14 ng/L 10/21/2022 5:46 AM CDT [facility] Blood BLOOD SPECIMEN / Unknown Venipuncture / Unknown 10/21/2022 4:59 AM CDT 10/21/2022 5:09 AM CDT Jim Walter MD LAB - CHEMISTRY ORD ERABLES [address] [address], [place] [phone] * FACTOR V LEIDEN MUTATION PANEL (10/21/2022 4:59 AM CDT) [facility] Factor V Leiden Source Whole Blood 10/26/2022 4:46 PM CDT [facility] ([facility]) Factor V Leiden PCR/FRET Negative 10/26/2022 4:46 PM CDT [facility] ([facility]) Comment: Indication for testing: Assess genetic risk for thrombosis. NEGATIVE: The factor V Leiden variant, c.1601G>A; p.[id number], was not detected. This does not exclude a genetic cause for thrombophilia. If this individual has had a previous venous thromboembolism, this negative result is unlikely to significantly reduce the risk for recurrence; thus, future clinical management to reduce recurrence should not be altered. This result has been reviewed and approved by Angelica Montoya M.D. BACKGROUND INFORMATION: Factor V Leiden (F5) R506Q Mutation CHARACTERISTICS: Venous thromboembolism (VTE) is multifactorial caused by a combination of genetic and environmental factors. The Factor V Leiden (FVL) variant is the most common cause of inherited VTEs, accounting for over 90 percent of activated protein C (APC) resistance. Because the FVL variant eliminates the APC cleavage site, factor V is inactivated slower, thus persisting longer in blood circulation, leading to more thrombin production. Other genetic risk factors for VTE include, male sex and variants in antithrombin, protein C, protein S, or factor XIII. Non-genetic risk factors include, age, smoking, prolonged immobilization, malignant neoplasms, surgery, , oral contraceptives, estrogen replacement therapy, tamoxifen and raloxifene therapy. INCIDENCE OF FACTOR V LEIDEN VARIANT: Approximately 5 percent of Caucasians, 2 percent of Hispanics, 1 percent of Americans and 0.5 percent of Asians are heterozygous; homozygosity occurs in 1 in 1500 Caucasians. INHERITANCE: Semi-dominant; both heterozygotes and homozygotes are at increased risk for VTE. PENETRANCE: Lifetime risk of VTE is 10 percent for heterozygotes and 80 percent of homozygotes. 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 Legacy nomenclature: R506Q (1691G>A) CLINICAL SENSITIVITY: 20-50 percent of individuals with an isolated VTE have the FVL variant. METHODOLOGY: Polymerase chain reaction and fluorescence monitoring. ANALYTICAL SENSITIVITY AND SPECIFICITY: 99 percent. LIMITATIONS: Diagnostic errors can occur due to rare sequence variations. F5 gene mutations, other than p.[id number], will not be detected. This test was developed and its performance characteristics determined by [facility]. It has not been cleared or approved by the US Food and Drug Administration. This test was performed in a CLIA certified laboratory and is intended for clinical purposes. Counseling and informed consent are recommended for genetic testing. Consent forms are available online. Performed By: [place] [address] Conveyor Technician: Boo Bond MD, PhD CLIA Number: [id number] Blood BLOOD SPECIMEN / Unknown Venipuncture / Unknown 10/21/2022 4:59 AM CDT 10/21/2022 5:10 AM CDT Good Antunez MD LAB - COAGULATION OR DERABLES Performing Organization Address City/[facility]/ZIP Co de Phone Number [address] * RHEUMATOID FACTOR BLOOD QUANTITATIVE (10/21/2022 4:59 AM CDT) Pathologist [facility] Rheumatoid Factor <15 <30 IU/mL 10/21/2022 5:36 AM CDT [facility] Rheumatoid Factor Screen Negative Negative 10/21/2022 5:36 AM CDT [facility] Blood BLOOD SPECIMEN / Unknown Venipuncture / Unknown 10/21/2022 4:59 AM CDT 10/21/2022 5:06 AM CDT Good Antunez MD LAB - CHEMISTRY ORDE HIRAL [address] [address], [facility] [phone] * SARAH BLOOD SCREEN W/REFLEX TITER (10/21/2022 4:59 AM CDT) Pathologist [facility] SARAH IgG None Detected None Detected 10/22/2022 10:36 PM CDT [facility]) Comment: If suspicion of connective tissue disease is strong and SARAH EIA is negative, consider testing for SARAH by IFA ([id number]). INTERPRETIVE INFORMATION: Anti-Nuclear Antibodies (SARAH), IgG by EZIO Antinuclear Antibodies (SARAH), IgG by EZIO: SARAH specimens are screened using enzyme-linked immunosorbent assay (EZIO) methodology. All EZIO results reported as Detected are further tested by indirect fluorescent assay (IFA) using HEp-2 substrate with an IgG-specific conjugate. The SARAH EZIO screen is designed to detect antibodies against dsDNA, histones, SS-A (Ro), SS-B (La), Goodwin, Goodwin/RESEARCH METHODS INSTRUCTOR, Scl-70, Sariah-1, centromeric proteins, other antigens extracted from the HEp-2 cell nucleus. SARAH EZIO assays have been reported to have lower sensitivities than SARAH IFA for systemic autoimmune rheumatic diseases (SARD). Negative results do not necessarily rule out SARD. Performed By: [employer] [address] [place] [address] Conveyor Technician: Boo Bond MD, PhD CLIA Number: [id number] Blood BLOOD SPECIMEN / Unknown Venipuncture / Unknown 10/21/2022 4:59 AM CDT 10/21/2022 5:06 AM CDT Good Antunez MD LAB - CHEMISTRY BIBIANA BLACKMAN [facility] ([facility]) [address] [place] [address] * COMPLEMENT C3 (10/21/2022 4:59 AM CDT) Complement C3 155 82 - 193 mg/dL 10/21/2022 5:47 AM CDT [facility] Blood BLOOD SPECIMEN / Unknown Venipuncture / Unknown 10/21/2022 4:59 AM CDT 10/21/2022 5:09 AM CDT Good Antunez MD LAB - CHEMISTRY BIB[place]NA BLACKMAN [address] [address], [facility] [phone] * ARTERIAL LINE PERFORMABLE (10/20/2022 6:58 PM CDT) Narrative Sue Conrad, DO - 10/20/2022 6:58 PM CDT Sue Conrad, DO ? 10/20/2022 ??6:59 PM Arterial Line Placement Procedure Note Patient Location: OR. Procedure: Arterial Line (89365). Procedure Section ?? Indications: continuous blood pressure monitoring. Consent: informed consent could not be obtained due to the patient's condition, urgency of situation, and/or lack of family members to sign consent. Skin Prep: Chloraprep. Orientation: Right. Site: radial. Site Identification: palpation. Sterile Technique: cap and mask. Gauge: 20. Catheter Type: Arrow. Number of Attempts: 2. Line Secured with: Tegaderm. Procedure Tolerance: tolerated well and performed while patient under general anesthesia. Events: none. Procedure Start Time: 10/20/2022 6:26 PM. Local Anesthetic Used? ??No Staff Section ? Anesthesia Provider: Valdez Patiño Anes Asst, Performed the procedure Lianet Diaz MD GENERAL ANESTHESIA O RDERABLES * ETT LINE PERFORMABLE (10/20/2022 6:52 PM CDT) Narrative Sue Conrad, DO - 10/20/2022 6:52 PM CDT Sue Conrad, DO ? 10/20/2022 ??6:53 PM Endotracheal Tube Placement: ? Patient Location: OR. Intubation Event Date/Time: ??10/20/2022 6:19 PM Procedure: intubation ([id number]). Procedure Section: ?? Sedation: under general anesthesia. Indications for Airway Management: ??anesthesia Induction: standard IV Patient Position: ??sniffing Mask Ventilation: easy. Blade Type: Video Blade Size: 3 Laryngoscopy View: grade 1 (full cords) Tube: endotracheal tube Placement: oral Tube type: cuff - inflated Tube Size (MM): 7 Depth of Insertion (CM): 20 Measured From: lips Cuff Inflated With: air Number of Attempts: 1. Placement Verified By: direct visualization, bilateral breath sounds, chest auscultation and CO2 monitor Tube secured with: ??adhesive tape. Dentition unchanged? ??Yes Difficult Airway? ??No. Procedure Start Time: 10/20/2022 6:19 PM. Staff Section ? Anesthesia Provider: Valdez Patiño Anes Asst, Performed the procedure Lianet Diaz MD GENERAL ANESTHESIA O RDERABLES * HGB HCT PANEL (10/20/2022 4:40 PM CDT) Only the most recent of3 resultswithin the time period is included. Hemoglobin 12.0 12.0 - 15.6 g/dL 10/20/2022 5:01 PM CDT [facility] Hematocrit 36.6 35.0 - 45.0 % 10/20/2022 5:01 PM CDT [facility] Blood BLOOD SPECIMEN / Unknown Venipuncture / Unknown 10/20/2022 4:40 PM CDT 10/20/2022 4:56 PM CDT Good Antunez MD LAB - HEMATOLOGY ORD LIM[place]BLES [facility] [address] [place] [phone], [facility] [phone] * (ABNORMAL) HEMOGLOBIN A1C (10/20/2022 10:15 AM CDT) Hemoglobin A1c 6.0(H) <=5.6 % 10/20/2022 2:15 PM CDT [facility] Estimated Average Glucose 126 mg/dL 10/20/2022 2:15 PM CDT [facility] Comment: HbA1c Interpretation: Normal : < 5.7% Pre-diabetes: 5.7-6.4% Diabetes: Equal to or greater than 6.5% Test results diagnostic of diabetes should be repeated for confirmation. Treatment target values recommended by ADA and other clinical organizations should be used to evaluate metabolic control in patients. Reference: [place] Diabetes Association, Standards of Care in Diabetes -2020 In patients 70 years and older consider HbA1c target range of 7.0-7.5% (Reference: Ronal David et al. JAMDA. 2012) The Sebia assay for the measurement of HbA1c is a National Glycohemoglobin Standardization Program (NGSP) certified method. Blood BLOOD SPECIMEN / Unknown Line Draw / Unknown 10/20/2022 10:15 AM CDT 10/20/2022 10:24 AM CDT Good Antunez MD LAB - CHEMISTRY ORDE HIRAL Performing Organization Address City/[facility]/ZIP Co de Phone Number [facility] [address] [place] [address], [place] [phone] * BLOOD TYPE VERIFICATION (10/20/2022 4:00 AM CDT) Only the most recent of2 resultswithin the time period is included. ABO Rh B POS 10/20/2022 4:3 7 AM CDT [facility] Blood Bank BLOOD SPECIMEN / Unknown Venipuncture / Unknown 10/20/2022 4:00 AM CDT 10/20/2022 4:07 AM CDT Tmi Callahan MD LAB - BLOOD BANK ORD JINBLES Performing Organization Address [facility] Co de Phone Number [facility] [address] [place] [address], [place] [phone] * PROTEIN C ACTIVITY (10/20/2022 3:02 AM CDT) Pathologist [facility] Protein C Activity 150 83 - 168 % 10/21/2022 9:44 PM CDT [employer] ([facility]) Comment: INTERPRETIVE INFORMATION: Protein C, Functional Patients on warfarin may have decreased protein C values. Patients should be off warfarin therapy for two weeks for accurate measurement of protein C levels. Artificially increased functional protein C values may be due to heparin therapy or the presence of direct thrombin inhibitors or factor Xa inhibitors. Access complete set of age- and/or gender-specific reference intervals for this test in the [facility] Test Directory ([employer]). Performed By: [employer] [address] [place] [id number] Conveyor Technician: Boo Bond MD, PhD CLIA Number: [id number] Blood BLOOD SPECIMEN / Unknown Venipuncture / Unknown 10/20/2022 3:02 AM CDT 10/20/2022 3:09 AM CDT Godo Antunez MD LAB - COAGULATION OR DERABLES Performing Organization Address City/[facility]/ZIP Co de Phone Number [employer] ([facility]) [address] * (ABNORMAL) PROTEIN S ACTIVITY (10/20/2022 3:02 AM CDT) Protein S Activity 134(H) 57 - 131 % 10/21/2022 10:09 PM CDT [facility] [employer] ([facility]) Comment: INTERPRETIVE INFORMATION: Protein S, Functional Patients on warfarin may have decreased functional protein S values. Patients should be off warfarin therapy for two weeks for accurate measurement of functional protein S. Artificially ?? increased functional protein S values may be due to heparin therapy or the presence of direct thrombin inhibitors or factor Xa inhibitors. ?? Access complete set of age- and/or gender-specific reference intervals for this test in the [facility] Test Directory ([employer]). Performed By: [employer] [address] [place] [address] Conveyor Technician: Boo Bond MD, PhD CLIA Number: [id number] Blood BLOOD SPECIMEN / Unknown Venipuncture / Unknown 10/20/2022 3:02 AM CDT 10/20/2022 3:09 AM CDT Good Antunez MD LAB - COAGULATION OR DERABLES [facility] ([facility]) [address] * (ABNORMAL) LIPID PROFILE (10/20/2022 3:02 AM CDT) Only the most recent of3 resultswithin the time period is included. Cholesterol Total 173 <200 mg/dL 10/20/2022 3:34 AM CDT [facility] HDL 42 >40 mg/dL 10/20/2022 3:34 AM CDT [facility] Comment: ATP III Classification of HDL Cholesterol: ? <40 mg/dL: ??Considered a major risk factor. ? >60 mg/dL: ??Considered a negative risk factor. ? LDL Calculated 91 <100 mg/dL 10/20/2022 3:34 AM CDT [facility] Comment: ATP III Classification of LDL Cholesterol: ?<100 mg/dL: ??Optimal ? 100 - 129 mg/dL: ??Near Optimal/Above Optimal ? 130 - 159 mg/dL: ??Borderline High ? 160 - 189 mg/dL: ??High ?>190 mg/dL: ??Very High ? Triglycerides 201(H) <150 mg/dL 10/20/2022 3:34 AM CDT [facility] Comment: ATP III Classification of Triglycerides: ?<150 mg/dL: ??Normal ? 150 - 199 mg/dL: ??Borderline High ? 200 - 400 mg/dL: ??High ?>500 mg/dL: ??Very High Blood BLOOD SPECIMEN / Unknown Venipuncture / Unknown 10/20/2022 3:02 AM CDT 10/20/2022 3:09 AM CDT Jim Walter MD LAB - CHEMISTRY ORD ERABLES Performing Organization Address City/[facility]/ZIP Co de Phone Number [address] [address], [place] [phone] * HCG URINE QUALITATIVE (10/19/2022 2:10 PM CDT) [facility] Test Urine Negative Negative 10/19/2022 2:29 PM CDT [facility] Urine URINE / Unknown Collection / Unknown 10/19/2022 2:10 PM CDT 10/19/2022 2:15 PM CDT Tim Callahna MD LAB - URINALYSIS ORD ERABLES Performing Organization Address City/[facility]/ZIP Co de Phone Number [address] [address], [place] [phone] * URINE DRUG SCREEN IMMUNOASSAY (10/19/2022 2:10 PM CDT) [facility] Amphetamines Screen Urine Negative Negative: < 1000 ng/mL 10/19/2022 2:48 PM CDT [facility] Barbiturates Screen Urine Negative Negative: < 200 ng/mL 10/19/2022 2:48 PM CDT [facility] Benzodiazepine Screen Urine Negative Negative: < 200 ng/mL 10/19/2022 2:48 PM CDT [facility] Opiates Urine Negative Negative: < 300 ng/mL 10/19/2022 2:48 PM CDT [facility] Cocaine Metabolites Urine Negative Negative: < 300 ng/mL 10/19/2022 2:48 PM CDT [facility] Phencyclidine Screen Urine Negative Negative: < 25 ng/ml 10/19/2022 2:48 PM T [facility] Cannabinoids Screen Urine Negative Negative: <50 ng/mL 10/19/2022 2:48 PM T [facility] Methadone Screen Urine Negative Negative: < 300 ng/mL 10/19/2022 2:48 PM T [facility] Fentanyl Screen Urine Negative Negative: <1.5 ng/mL 10/19/2022 2:48 PM T [facility] Urine URINE / Unknown Collection / Unknown 10/19/2022 2:10 PM CDT 10/19/2022 2:15 PM CDT [facility] - 10/19/2022 2:48 PM CDT The Urine Toxicology Screening Panel does not screen for Propoxyphene, Meprobamate, Carisoprodol, Trazodone, kmaj-cdo-itihblp medications and/or volatiles (Acetone, Isopropanol, Methanol or Ethylene Glycol). Ethanol, Salicylate, Acetaminophen, Tricyclic Antidepressants and several therapeutic drugs may be individually assayed in serum or plasma specimen. Toxicology testing by the [facility] is an aid to medical diagnosis and treatment of patients. No documented chain of custody was maintained. Results are intended to be used for clinical purposes only. ? Good Antunez MD LAB - URINE CHEMISTR Y ORDERABLES Performing Organization Address City/State/[facility] Co de Phone Number [facility] [address] [place] [address], [facility] [phone] * IR INTRACRANIAL [facility] THROMBECT (10/19/2022 10:41 AM CDT) Anatomical Region Laterality Modality Head X-Ray Angiograph y 10/19/2022 10:2 9 AM CDT Impressions 11/07/2022 9:21 AM CDT Impression: 1. TICI2b revascularization of the R MCA M1 occlusion. Location of Clot: Right M1 segment Initial TICI: 0 Final TICI: 2b I, Dr. Jim Walter, was present and performed/supervised the entire procedure. I, Jim Walter MD have personally reviewed and interpreted this examination/study. > Interpreting Provider: Jim Walter MD on 11/07/2022 9:21 AM Narrative 11/07/2022 9:21 AM CDT PROCEDURE: ??IR INTRACRANIAL [facility] THROMBECT DATE/TIME OF EXAM: ??10/19/2022 10:41 AM Procedure: Cerebral Angiogram and Mechanical Thrombectomy for Acute Stroke Comparison Study: History: 41 year oldwith GERD, tobacco, p/w left sided neglect both sensory and visual, LWK 6:30, s/p TNK. CTA 1 M1 occlusion. Will take to IR for a mechanical thrombectomy. Notification Time: 8:21 NIHSS Score: 6 ASPECTS: 9 In-room: 8:48 Puncture Time: 8:53 Location of Clot: R M1 MCA Initial TICI: 0 Time to Clot: 9:37 Time to Reperfusion: 9:54 Final TICI: 2b Township Supervisor: Dr. Mitali Walter Oil Burner Servicer And Installer(s): Isak Monte Vessels: Ultrasound Guided Access of Femoral Artery Ultrasound Guided Access of Radial Artery Arterial line placement in the right radial artery Right Common Carotid Artery Angiogram: Cerebral Intracranial Catheterization Mechanical Thrombectomy with Retrievable Stent and Reperfusion Catheter Angiography Through the Existing Catheter Right Femoral Artery Angiogram Anesthesia: General Anesthesia was performed and monitored by an attending Anesthesiologist and their phlebotomist lab assistant throughout the entirety of the case Procedural Detail: The risks, benefits, and alternatives to procedure were discussed in detail with the patient and her ??family. These included but were not limited to the risk of blood loss, vessel injury, stroke, renal injury, and contrast allergy. The patient was brought to the biplane angiography suite where she underwent prep and drape procedures. Limited ultrasound of the right radial artery demonstrated a patent vessel. A 5 wallisian sheath was placed in the radial artery and was used as an arterial line. ?? Limited ultrasound of the common femoral artery demonstrated a patent vessel. The take off of the profunda and other arteries were identified. A scott scale image was documented. The right common femoral artery was accessed using a micropuncture needle. The needle entry was documented. Following a series of exchanges, a 8 Ghanaian sheath sheath was placed in the right femoral artery. A Guide and a 6 Ghanaian RippldumbProton Therapy Select Serrano 2 catheter along with a stiff 0.035 Glidwire was navigated into the aortic arch. The catheter was used to select brachiocephalic artery followed by the right common carotid artery and finally the right internal carotid artery and a cerebral angiogram was obtained. The Select catheter and glidewire were removed from the arterial system. A Marksman and Zoom 071 along with a Synchro 14 microwire were coaxially inserted and used to access the large vessel occlusion. Through the Marksman, a 6mm x 40mm Solitaire retrievable stent was deployed. The microcatheter was then removed from the arterial system. ??After 5min were allowed to elapse for maximal stent expansion, suction was initiated through the reperfusion catheter and the clot was engaged proximally. The retrievable stent and reperfusion catheter were then removed from the arterial system. The same procedure was performed for a second time. ??An angiogram through the existing catheter was performed. The right femoral artery angiogram was obtained through the sheath. All catheters and sheaths were removed from the arterial system. Hemostasis was achieved using a 8 Ghanaian Angio-Seal closure device. Hemostasis was immediate at the end of the closure procedure. The right dorsalis pedis pulse was palpable at the end of the closure procedure. The patient tolerated the procedure without immediate complications. She was returned to the recovery area in hemodynamically stable condition. The estimated blood loss was less than 10 mL. A total of ??14.6 ??minutes of fluoroscopic time and 60 ml of Isovue-300 contrast were utilized for the study. Findings: There was good arterial, capillary, and venous opacification of all angiographic runs. The eight internal carotid artery angiogram reveals a normal course and caliber the intracranial internal carotid artery. The middle cerebral artery is occluded in the M1 segment. The anterior cerebral artery is normal in size and course. The venous drainage in normal. After the mechanical thrombectomy was performed a TICI2b revascularization on the MCA territory was visualized. Procedure Note Jim Walter MD - 11/07/2022 PROCEDURE: IR INTRACRANIAL [facility] THROMBECT DATE/TIME OF EXAM: 10/19/2022 10:41 AM Procedure: Cerebral Angiogram and Mechanical Thrombectomy for AcuteStroke Comparison Study: History: 41 year oldwith GERD, tobacco, p/w left sided neglect bothsensory and visual, LWK 6:30, s/p TNK. CTA 1 M1 occlusion. Will take to IR for a mechanical thrombectomy. Notification Time: 8:21 NIHSS Score: 6 ASPECTS: 9 In-room: 8:48 Puncture Time: 8:53 Location of Clot: R M1 MCA Initial TICI: 0 Time to Clot: 9:37 Time to Reperfusion: 9:54 Final TICI: 2b Township Supervisor: Dr. Mitali Walter Oil Burner Servicer And Installer(s): Isak Monte Vessels: Ultrasound Guided Access of Femoral Artery Ultrasound Guided Access of Radial Artery Arterial line placement in the right radial artery Right Common Carotid Artery Angiogram: Cerebral Intracranial Catheterization Mechanical Thrombectomy with Retrievable Stent and Reperfusion Catheter Angiography Through the Existing Catheter Right Femoral Artery Angiogram Anesthesia: General Anesthesia was performed and monitored by an attending Anesthesiologist and their phlebotomist lab assistant throughout the entirety of the case Procedural Detail: The risks, benefits, and alternatives to procedure were discussed indetail with the patient and her family. These included but were not limited to the risk of blood loss, vessel injury, stroke, renal injury, andcontrast allergy. The patient was brought to the biplane angiography suite whereshe underwent prep and drape procedures. Limited ultrasound of the right radial artery demonstrated a patent vessel. A 5 wallisian sheath was placedin the radial artery and was used as an arterial line. Limited ultrasoundof the common femoral artery demonstrated a patent vessel. The take off ofthe profunda and other arteries were identified. A scott scale image was documented. The right common femoral artery was accessed using a micropuncture needle. The needle entry was documented. Following aseries of exchanges, a 8 Ghanaian sheath sheath was placed in the right femoral artery. A Guide and a 6 Ghanaian Intervention Insights Select Serrano 2 catheter along with a stiff 0.035 Glidwire was navigated into the aortic arch. The catheter was used to select brachiocephalic artery followed by the right common carotid artery and finally the right internal carotidartery and a cerebral angiogram was obtained. The Select catheter and glidewire were removed from the arterial system.A Marksman and Zoom 071 along with a Synchro 14 microwire were coaxially inserted and used to access the large vessel occlusion. Through the Marksman, a 6mm x 40mm Solitaire retrievable stent was deployed. The microcatheter was then removed from the arterial system. After 5minwere allowed to elapse for maximal stent expansion, suction was initiated through the reperfusion catheter and the clot was engaged proximally.The retrievable stent and reperfusion catheter were then removed from the arterial system. The same procedure was performed for a second time. An angiogram through the existing catheter was performed. The right femoral artery angiogram was obtained through the sheath. All catheters and sheaths were removed from the arterial system.Hemostasis was achieved using a 8 Ghanaian Angio-Seal closure device. Hemostasis was immediate at the end of the closure procedure. The right dorsalis pedis pulse was palpable at the end of the closure procedure. The patient tolerated the procedure without immediate complications. She was returned to the recovery area in hemodynamically stable condition. The estimated blood loss was less than 10 mL. A total of 14.6 minutes of fluoroscopic time and 60 ml of Isovue-300 contrast were utilized for the study. Findings: There was good arterial, capillary, and venous opacification of all angiographic runs. The eight internal carotid artery angiogram reveals a normal course and caliber the intracranial internal carotid artery. The middle cerebral artery is occluded in the M1 segment. The anterior cerebral artery is normal in size and course. The venous drainage in normal. After the mechanical thrombectomy was performed a TICI2b revascularization on theMCA territory was visualized. Impression: 1. TICI2b revascularization of the R MCA M1 occlusion. Location of Clot: Right M1 segment Initial TICI: 0 Final TICI: 2b I, Dr. Jim Walter, was present and performed/supervised theentire procedure. I, Jim Walter MD have personally reviewed and interpreted this examination/study. > Interpreting Provider: Jim Walter MD on 11/07/2022 9:21 AM Emir Vail MD IR ORDERABLES * ETT LINE PERFORMABLE (10/19/2022 9:09 AM CDT) Narrative Larisa Morrison APRN-CRNA - 10/19/2022 9:09 AM CDT Larisa Morrison APRN-CRNA ? 10/19/2022 ??9:09 AM Endotracheal Tube Placement: ? Patient Location: OR. Intubation Event Date/Time: ??10/19/2022 8:54 AM Procedure: intubation (94755). Procedure Section: ?? Induction: standard IV Patient Position: ??sniffing Mask Ventilation: easy. Blade Type: Michelle Blade Size: 2 Laryngoscopy View: grade 1 (full cords) Intubation Adjuncts: cricoid pressure Tube: endotracheal tube Placement: oral Tube type: cuff - inflated Tube Size (MM): 7 Depth of Insertion (CM): 23 Measured From: teeth Cuff Inflated With: air Number of Attempts: 1. Placement Verified By: direct visualization, bilateral breath sounds, chest auscultation and CO2 monitor Tube secured with: ??adhesive tape and ETT bhatt. Dentition unchanged? ??Yes Difficult Airway? ??No. Procedure Start Time: 10/19/2022 8:54 AM. Staff Section ? Anesthesia Provider: Larisa Morrison APRN-CRNA, Performed the procedure ? Provider #1: Shahbaz Bowen MD. Shahbaz Bowen MD GENERAL ANESTHESIA O RDERABLES * EKG 12-LEAD (10/19/2022 8:22 AM CDT) Only the most recent of2 resultswithin the time period is included. Ventricular Rate 129 BPM [facility]USE Atrial Rate 129 BPM H MUSE P-R Interval 134 ms [facility] QRS Duration ms 90 ms [facility] MUSE Q-T Interval ms 318 ms [facility] MUSE QTC Calculation (Bezet) 465 ms [facility]USE Calculated P Nesmith 55 degrees [facility] Calculated R Nesmith 13 degrees [facility] Calculated T Nesmith 5 degrees [facility] MUSE Interpretation EKG SINUS TACHYCARDIA OTHERWISE NORMAL ECG NO PREVIOUS ECGS AVAILABLE Confirmed by FLORA OTT MD ([id number]) on 10/19/2022 5:38:23 PM [facility] MUSE 10/19/2022 8:22 AM CDT 10/19/2022 5:38 PM CDT Tim Callahan MD ECG ORDERABLES [facility] MUSE * CT ANGIO BRAIN NECK STROKE (10/19/2022 8:15 AM CDT) Anatomical Region Laterality Modality Head Computed Tomogra phy 10/19/2022 8:17 AM CDT Impressions 10/19/2022 8:57 AM CDT IMPRESSION: 1. Occlusion of the distal M1 segment and 2 proximal M2 segments of the right middle cerebral artery. A small early M2 segment of the right MCA is patent. Some reconstitution of the distal branches. 2. No large arterial occlusions or significant stenoses identified in the head or neck. These findings were discussed in detail with the patient's care provider, Dr. Hester by Dr. Rae via telephone at 8:19 AM on 10/19/2022 with readback comprehension and verification. > Interpreting Provider: Lonnie Rae MD on 10/19/2022 8:57 AM Narrative 10/19/2022 8:57 AM CDT PROCEDURE: ??CT ANGIO BRAIN NECK STROKE, DATE/TIME OF EXAM: ??10/19/2022 8:16 AM, LOCATION ??[facility] INDICATION: Code Stroke ADDITIONAL CLINICAL INFORMATION: Ordering Provider Reason For Exam: Technologist Note: Additional: EXAMINATION: 1. Computed tomographic (CT) angiography of the head with contrast 2. CT angiography of the neck with contrast TECHNIQUE: CT angiography of the head and neck was obtained after the uneventful administration of 75 mL Isovue-370 intravenous contrast. Three dimensional postprocessing was performed by the technologist and sent to the workstation for review. This study was analyzed using artificial intelligence software for Large Vessel Occlusion detection. COMPARISON: Comparison is made with a study from earlier today. FINDINGS: Non-angiographic findings: Please refer to the report of a concurrent noncontrasted head CT for detailed intracranial findings including findings suggesting an acute right MCA infarct. No soft tissue abnormalities are identified in the neck. Angiographic findings: Neck: The visible aortic arch appears normal. The configuration of the brachiocephalic vessels is typical. The innominate artery and both subclavian arteries appear normal. The right common and internal carotid arteries as well as the right carotid bifurcation are patent. The left common and internal carotid arteries as well as the left carotid bifurcation are patent. The cervical vertebral arteries are patent. Head: The distal internal carotid arteries are patent. The anterior cerebral arteries ??are patent. There is occlusion of the distal M1 segment and 2 of the M2 segments of the right middle cerebral artery. A small early M2 segment is patent. There is reconstitution of some distal right MCA branches. The left MCA is patent. The posterior cerebral arteries are patent. The distal vertebral arteries are patent. The basilar artery is patent patent. 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 Procedure Note Lonnie Rae MD - 10/19/2022 PROCEDURE: CT ANGIO BRAIN NECK STROKE, DATE/TIME OF EXAM: :16 AM, LOCATION [facility] INDICATION: Code Stroke ADDITIONAL CLINICAL INFORMATION: Ordering Provider Reason For Exam: Technologist Note: Additional: EXAMINATION: 1. Computed tomographic (CT) angiography of the head with contrast 2. CT angiography of the neck with contrast TECHNIQUE: CT angiography of the head and neck was obtained after the uneventful administration of 75 mL Isovue-370 intravenous contrast.Three dimensional postprocessing was performed by the technologist and sent to the workstation for review. This study was analyzed using artificial intelligence software for Large Vessel Occlusion detection. COMPARISON: Comparison is made with a study from earlier today. FINDINGS: Non-angiographic findings: Please refer to the report of a concurrent noncontrasted head CT for detailed intracranial findings including findings suggesting an acuteright MCA infarct. No soft tissue abnormalities are identified in the neck. Angiographic findings: Neck: The visible aortic arch appears normal. The configuration of the brachiocephalic vessels is typical. The innominate artery and both subclavian arteries appear normal. The right common and internal carotid arteries as well as the right carotid bifurcation are patent. The left common and internal carotid arteries as well as the left carotid bifurcation are patent. The cervical vertebral arteries are patent. Head: The distal internal carotid arteries are patent. The anterior cerebral arteries are patent. There is occlusion of the distal M1 segment and 2of the M2 segments of the right middle cerebral artery. A small early M2 segment is patent. There is reconstitution of some distal right MCA branches. The left MCA is patent. The posterior cerebral arteries are patent. The distal vertebral arteries are patent. The basilar artery is patent patent. 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 IMPRESSION: 1. Occlusion of the distal M1 segment and 2 proximal M2 segments of the right middle cerebral artery. A small early M2 segment of the right MCAis patent. Some reconstitution of the distal branches. 2. No large arterial occlusions or significant stenoses identified inthe head or neck. These findings were discussed in detail with the patient's careprovider, Dr. Hester by Dr. Rae via telephone at 8:19 AM on 10/19/2022 withreadback comprehension and verification. > Interpreting Provider: Lonnie Rae MD on 10/19/2022 8:57 AM Tim Callahan MD CT ORDERABLES * INR WHOLE BLOOD - POINT OF CARE (IP) STROKE (10/19/2022 8:09 AM CDT) INR 0.9 0.9 - 1.2 10/19/2022 8:18 AM CDT [facility] Device [id number] 10/19/2022 8:18 AM CDT [facility] Township Supervisor ID [id number] 10/19/2022 8:18 AM CDT [facility] Blood BLOOD SPECIMEN / Unknown 10/19/2022 8:09 AM CDT 10/19/2022 8:18 AM CDT Provider Unknown LAB - POINT OF CARE ORDERABLES [address] [address], [facility] [phone] * CREATININE - POCT INTERFACED (10/19/2022 8:08 AM CDT) Creatinine POCT 0.78 0.30 - 1.30 mg/dL 10/19/2022 8:18 AM CDT [facility] eGFR >90 >90 mL/min/1.7 3 m2 10/19/2022 8:18 AM CDT [facility] Blood BLOOD SPECIMEN / Unknown 10/19/2022 8:08 AM CDT 10/19/2022 8:18 AM CDT Provider Unknown LAB - POINT OF CARE ORDERABLES Performing Organization Address [facility]/ZIP Co de Phone Number [address] [address], [facility] [phone] * CT BRAIN - Stroke (10/19/2022 8:03 AM CDT) Anatomical Region Laterality Modality Head Computed Tomogra phy 10/19/2022 8:07 AM CDT Impressions 10/19/2022 8:15 AM CDT IMPRESSION: 1. No acute intracranial hemorrhage. 2. Suggestion of subtle hypoattenuation with loss of scott-white matter differentiation in the right frontotemporal lobes and the right insula, concerning for an acute infarct in the right MCA distribution. An MRI is recommended to confirm this finding. There is suggestion of a hyperdense right MCA likely represent acute thrombus or an artifact. These findings were discussed in detail with the patient's care provider, Dr. Hester by Dr. Rae via telephone at 8:10 AM on 10/19/2022 with readback comprehension and verification. > Interpreting Provider: Lonnie Rae MD on 10/19/2022 8:15 AM Narrative 10/19/2022 8:15 AM CDT PROCEDURE: ??CT BRAIN STROKE, DATE/TIME OF EXAM: ??10/19/2022 8:04 AM, LOCATION ??[facility] INDICATION: Code Stroke ADDITIONAL CLINICAL INFORMATION: Ordering Provider Reason For Exam: Technologist Note: Additional: EXAMINATION: Computed tomography (CT) of the head without contrast TECHNIQUE: CT of the head was performed without contrast according to standard protocol. COMPARISON: No prior study is available for comparison at the time of this dictation. FINDINGS: There is suggestion of subtle hypoattenuation with loss of scott-white matter differentiation in the right frontotemporal lobes and the right insula, concerning for an acute infarct. There is suggestion of a hyperdense right MCA likely represent acute thrombus (series 5 image 25). No acute intracranial hemorrhage or intra- or extra-axial fluid collections are identified. The ventricles are of normal size, shape, and morphology. The basal cisterns are patent. No mass effect or midline shift is seen. The scott-white matter differentiation is normal. The visualized portions of the orbits, paranasal sinuses, and mastoids appear normal. No acute calvarial fracture is identified. Procedure Note Lonnie Rae MD - 10/19/2022 PROCEDURE: CT BRAIN STROKE, DATE/TIME OF EXAM: 10/19/2022 8:04 AM, LOCATION [facility] INDICATION: Code Stroke ADDITIONAL CLINICAL INFORMATION: Ordering Provider Reason For Exam: Technologist Note: Additional: EXAMINATION: Computed tomography (CT) of the head without contrast TECHNIQUE: CT of the head was performed without contrast according to standard protocol. COMPARISON: No prior study is available for comparison at the time ofthis dictation. FINDINGS: There is suggestion of subtle hypoattenuation with loss of scott-white matter differentiation in the right frontotemporal lobes and the right insula, concerning for an acute infarct. There is suggestion of a hyperdense right MCA likely represent acute thrombus (series 5 image25). No acute intracranial hemorrhage or intra- or extra-axial fluidcollections are identified. The ventricles are of normal size, shape, andmorphology. The basal cisterns are patent. No mass effect or midline shift is seen.The scott-white matter differentiation is normal. The visualized portions of the orbits, paranasal sinuses, and mastoids appear normal. No acute calvarial fracture is identified. IMPRESSION: 1. No acute intracranial hemorrhage. 2. Suggestion of subtle hypoattenuation with loss of scott-white matter differentiation in the right frontotemporal lobes and the right insula, concerning for an acute infarct in the right MCA distribution. An MRI is recommended to confirm this finding. There is suggestion of a hyperdense right MCA likely represent acute thrombus or an artifact. These findings were discussed in detail with the patient's careprovider, Dr. Hester by Dr. Rae via telephone at 8:10 AM on 10/19/2022 withreadback comprehension and verification. > Interpreting Provider: Lonnie Rae MD on 10/19/2022 8:15 AM Tim Callahan MD CT ORDERABLES * VITAMIN D (25-HYDROXY) (06/15/2022 7:57 AM CDT) [facility] Vitamin D, 25 Hydroxy 73.0 30.0 - 80.0 ng/mL 06/15/2022 9:00 AM CDT [facility] Comment: The recommendations for 25-Hydroxy Vitamin D clinical decision points are as follows: ? Deficient: ? <20.0 ng/mL ? Insufficient: ? 20.0 - 29.9 ng/mL ? Sufficient: ? 30.0 - 100.0 ng/mL ? Potential Toxicity: ??>100 ng/mL Reference: The Endocrine Society Clinical Practice Guidelines. 2011 If the 25-Hydroxy Vitamin D results are inconsitent with clinical evidence, it is recommended that follow-up testing using a method such as LC/MS/MS be performed to confirm the result. ? Blood BLOOD SPECIMEN / Unknown Lab Venipuncture / Unknown 06/15/2022 7:57 AM CDT 06/15/2022 8:12 AM CDT Jaden Thakur DO LAB - CHEMISTRY ORDERABLES [facility] [address] [place] [address], [facility] [phone] * PAP IG RFLX HPV HR ASCUS RFLX 16/18/45 (02/08/2022 4:10 PM NURSING TECHN) Only the most recent of4 resultswithin the time period is included. Diagnosis [facility] ACCOUNT BILL Comment:NEGATIVE FOR INTRAEP ITHELIAL LESION OR MALIGNANCY. Specimen Adequacy [facility] ACCOUNT BILL Comment:Satisfactory for anny luation. No endocervical component is identified. Clinician Provided ICD10 [facility] ACCOUNT BILL Comment:Z01.419 Performed by [facility] ACCOUNT BILL Comment:Hernandez Shay totechnologist ([facility]) Comment . [facility] ACCOUNT BILL Note [facility] [...] UTERINE CERVIX / Unknown 02/08/2022 4:10 PM NURSING TECHN 02/09/2022 Narrative [facility] ACCOUNT BILL - 02/14/2022 5:08 PM NURSING TECHN Source.............Cervix;Endocervix LMP / Prev Treat...LKY=[id number] No. of containers..01 ThinPrep Vial Resulting Agency Comment Lab Testing performed at: [facility] [address] [facility] ??[place] [phone] Jean Joy MD LAB - PATHOLOGY/CYTO LOGY ORDERABLES [facility] ACCOUNT BILL [address] [place] [address] * CARDIAC RHYTHM STRIP ORDER (08/27/2021 11:50 AM CDT) Only the most recent of3 resultswithin the time period is included. Narrative 08/27/2021 11:50 AM CDT Ordered by an unspecified provider. Scanned Document [facility] ORD ERABLES * PATHOLOGY TISSUE EXAM (STL) (08/25/2021 10:14 AM CDT) Only the most recent of2 resultswithin the time period is included. Case Report Surgical Pathology Report ? Case: [id number] ? Authorizing Provider: ??Sathya Velazco MD ?Collected: ? 08/25/2021 10:14 AM ? Ordering Location: ? [facility] ? Received: ?08/25/2021 12:57 PM ? Pathologist: ? Gagan Cramer MD ? Specimen: ?Polyp Sigmoid ? 08/26/2021 2:52 PM [facility] Final Diagnosis A. Polyp, sigmoid colon, polypectomy: -- Hyperplastic polyp. -- No evidence of dysplasia, or malignancy. SD/scs 08/26/2021 2:52 PM [facility] Clinical History Screening for colon cancer. Personal history of colonic polyps. 08/26/2021 2:52 PM [facility] Gross Description Received in one formalin-filled container labeled with the patient's name, [place], Consuelo, and sigmoid polyp . It consists of five reddish-duncan soft tissue fragments, ranging in greatest dimension from less than 0.1 to 0.3 cm. The specimen is marked with hematoxylin and entirely submitted in cassette A1. SD/na 08/26/2021 2:52 PM [facility] Microscopic Description Reactive lymphoid aggregates are seen. 08/26/2021 2:52 PM [facility] Disclaimer All histochemical and/or immunohistochemical results are interpreted with controls that demonstrate appropriate staining reactions before reporting results. Note on use of immunocytochemistry reagents: This test was developed and its performance characteristic determined by [facility], Department of Laboratory Medicine. It has not been cleared or approved by the U.S. Food and Drug Administration (FDA). The FDA has determined that such clearance or approval is not necessary. The test is used for clinical purpose. It should not be regarded as investigational or for research. This laboratory is certified to perform high complexity testing. The performance characteristics of the IHC/MACHO assays have been validated on formalin-fixed paraffin embedded tissues only. The assays have not been validated on decalcified tissues. Results should be interpreted with caution. 08/26/2021 2:52 PM [facility] Embedded Images 08/26/2021 2:52 PM [facility] Pathology/Cytolo gy POLYP OF SIGMOID COLON / Unknown 08/25/2021 10:14 AM CDT 08/25/2021 12:57 PM CDT Comment:Pre-op diagnosis: Screen for colon cancer [Z12.11] Sathya Velazco MD LAB - PATHOLOGY/CYTO LOGY ORDERABLES [facility] [address] [address] * ENDOSCOPY, COLON, SCREENING (08/25/2021 9:58 AM CDT) Report Endoscopy POC _ Patient Name: Mehnaz , ??Consuelo Lu ?Procedure Date: 08/25/2021 9:58 AM ? Date of : 1980 ?Admit Type: Outpatient Age: 40 ? Room: ROOM 1 Gender: Female ?Attending MD: Sathya Velazco MD _ Procedure: ? Colonoscopy Indications: ? High risk colon cancer surveillance: Personal history ? of colonic polyps, Last colonoscopy: 2012 Providers: ? Sathya Velazco MD, Tia Rico RN, Zeinab ? AMBROSE Marina, Aminata aCin CRNA (Anesthesia Staff) Medicines: ? Propofol per [...] Procedure Code(s): ? --- Professional --- ? 42217, Colonoscopy, flexible; with biopsy, single or multiple ? --- Technical --- ? 92691, Colonoscopy, flexible; with biopsy, single or multiple [...] abscess ? without bleeding CPT copyright 2019 [employer]. All rights reserved. The codes documented in this report are preliminary and upon financial reserve clerk review may be revised to meet current compliance requirements. ___ Sathya Velazco MD 08/25/2021 10:19:15 AM This report has been signed electronically. Number of Addenda: 0 Note Initiated On: 08/25/2021 9:58 AM [facility] 08/25/2021 9:58 AM CDT Sathya Velazco MD GI PROCEDURE ORDERAB LES Performing Organization Address City/State/[facility] Co de Phone Number [facility] * SKIN TEST PPD - POINT OF CARE (10/15/2020 7:11 PM CDT) PPD negative [facility] Comment:no induration Other MISCELLANEOUS SAMPLE S / Unknown 10/15/2020 7:11 PM CDT David Leggett [facility] LAB - POINT OF CARE ORDERABLES Performing Organization Address [facility] Co de Phone Number [facility] [place] [address] [phone] * SARS-COV-2 (COVID-19) ANTIBODY IGG [facility] (11/06/2019 9:39 AM CDT) SARS COV 2 AB (IGG) Negative [facility] INSURANCE BILL Comment: See [facility] SARS-CoV-2 Ab, IgG FASTING Blood BLOOD SPECIMEN / Unknown 11/06/2019 9:39 AM CDT 11/06/2019 Narrative [facility] INSURANCE BILL - 11/07/2019 7:09 AM CDT Test(s) [id number] Antibody, IgG; 512073- [facility] SARS-CoV-2 Ab, IgG has not been FDA cleared or approved. This test has been authorized by FDA under an Emergency Use Authorization (EUA). This test is only authorized for the duration of the declaration that circumstances exist justifying the authorization diagnosis of COVID-19 under Section 564(b)(1) of the Act, 21 U.S.C. 360bbb-3(b)(1), unless the authorization is terminated or revoked sooner. This test has been authorized only for detecting the presence of antibodies against SARS-CoV-2, not for any other viruses or pathogens. Resulting Agency Comment Lab Testing performed at: [facility] [address] [facility] ??[facility] [id number] Oksana Stallwortht [facility] LAB - CHEMISTRY O RDERABLES [facility] INSURANCE BILL [address] [place] [address] * [facility] SARS-COV-2 AB IGG REFLEXED (11/06/2019 9:39 AM CDT) Pathologist [facility] SARS-CoV-2 Antibody IgG Negative Negative [facility] Comment: This sample does not contain detectable SARS-CoV-2 IgG antibodies. This negative result does not rule out SARS-CoV-2 infection. Correlation with epidemiologic risk factors and other clinical and laboratory findings is recommended. Serologic results should not be used as the sole basis to diagnose or exclude recent SARS-CoV-2 infection. This assay was performed using the [employer] Liaison(R) SARS-CoV-2 S1/S2 IgG assay. FASTING 11/06/2019 9:39 AM CDT 11/06/2019 N[facility]ative [facility] - 11/07/2019 7:09 AM CDT Test(s) [id number] Antibody, IgG; [id number] DiaSorin SARS-CoV-2 Ab, IgG has not been FDA cleared or approved. This test has been authorized by FDA under an Emergency Use Authorization (EUA). This test is only authorized for the duration of the declaration that circumstances exist justifying the authorization diagnosis of COVID-19 under Section 564(b)(1) of the Act, 21 U.S.C. 360bbb-3(b)(1), unless the authorization is terminated or revoked sooner. This test has been authorized only for detecting the presence of antibodies against SARS-CoV-2, not for any other viruses or pathogens. Resulting Agency Comment Lab Testing performed at: [facility] [address] ??[facility] [phone] Oksana Boothe [facility] - CHEMISTRY O RDERABLES [facility] INSURANCE BILL [address] [place] [address] * CT ABD/PELVIS STONE PROTOCOL (12/09/2018 10:21 AM CDT) Anatomical Region Laterality Modality Abdomen Computed Tomogra phy 12/09/2018 10:3 6 AM CDT Impressions 12/09/2018 10:38 AM CDT 3 mm right UVJ stone with mild right hydronephrosis and hydroureter, minimal perinephric stranding. Reading Radiologist: Agnes Luis MD on 12/09/2018 at 10:38 AM Narrative 12/09/2018 10:[address] abdomen pelvis without IV contrast INDICATION: Right flank pain right lower quadrant abdominal pain Helical CT images of the abdomen and pelvis are obtained without IV contrast. FINDINGS: Scans of lung bases are unremarkable. The unenhanced liver, spleen and pancreas are unremarkable. There are clips at the gallbladder fossa. The unenhanced spleen and pancreas are unremarkable. The adrenals are unremarkable. There is mild right hydronephrosis and hydroureter with minimal perinephric stranding. Tiny calculus is seen at the level of the right UVJ measuring 3 mm likely accounting for the obstruction. Uterus and adnexa are unremarkable. There is no free fluid. The bowel appear unremarkable. Procedure Note Agnes Luis MD - 12/09/2018 CT abdomen pelvis without IV contrast INDICATION: Right flank pain right lower quadrant abdominal pain Helical CT images of the abdomen and pelvis are obtained without IV contrast. FINDINGS: Scans of lung bases are unremarkable. The unenhanced liver, spleen and pancreas are unremarkable. There are clips at the gallbladder fossa. The unenhanced spleen and pancreas are unremarkable. The adrenals are unremarkable. There is mild right hydronephrosis and hydroureter with minimal perinephric stranding. Tiny calculus is seen at the level of the right UVJ measuring 3 mm likely accounting for the obstruction. Uterus and adnexa are unremarkable. There is no free fluid. The bowel appear unremarkable. IMPRESSION 3 mm right UVJ stone with mild right hydronephrosis and hydroureter, minimal perinephric stranding. Reading Radiologist: Agnes Luis MD on 12/09/2018 at 10:38 AM Adam Chopra [address] CT ORDERABLES * CT RENAL STONE PROTOCOL (NO IV AND NO ORAL CONTRAST) (07/26/2018 1:14 AM CDT) Anatomical Region Laterality Modality Abdomen, Pelvis Computed Tomogra phy 07/26/2018 7:32 AM CDT Impressions 07/26/2018 7:34 AM CDT No acute abdominal or pelvic pathology. Faint groundglass opacities noted in the right middle lobe which may represent pneumonitis/pneumonia. Fatty infiltration of the liver. A preliminary report was furnished by [facility] on 07/26/2018 at 1:41 AM Reading Radiologist: Jacques Cole MD on 07/26/2018 at 7:34 AM Narrative 07/26/2018 7:[address] abdomen and pelvis. HISTORY: Left flank pain, UTI. PROCEDURE: Multiple contiguous axial images of the abdomen and pelvis were obtained without contrast. Coronal sagittal reformations are provided. Comparison is made with prior dated December 29, 2011. FINDINGS: The heart chambers appear normal. Faint groundglass opacity is noted in the right middle lobe.. The liver is fatty infiltrated without mass. The patient status post cholecystectomy. The pancreas, spleen and adrenal glands are normal appearing. A 2 mm nonobstructing right lower pole renal calculus is identified. No ureteral or bladder calculi are noted. The noncontrast opacified loops of bowel are unremarkable without obstruction, perforation or inflammatory change. The uterus and ovaries appear normal. Abdominal vascular is normal. No abnormal lymph nodes or fluid collections are identified. Anterior abdominal wall is intact. No skeletal lesions are noted. Procedure Note Jacques Cole DO - 07/26/2018 CT abdomen and pelvis. HISTORY: Left flank pain, UTI. PROCEDURE: Multiple contiguous axial images of the abdomen and pelvis were obtained without contrast. Coronal sagittal reformations are provided. Comparison is made with prior dated December 29, 2011. FINDINGS: The heart chambers appear normal. Faint groundglass opacity is noted in the right middle lobe.. The liver is fatty infiltrated without mass. The patient status post cholecystectomy. The pancreas, spleen and adrenal glands are normal appearing. A 2 mm nonobstructing right lower pole renal calculus is identified. No ureteral or bladder calculi are noted. The noncontrast opacified loops of bowel are unremarkable without obstruction, perforation or inflammatory change. The uterus and ovaries appear normal. Abdominal vascular is normal. No abnormal lymph nodes or fluid collections are identified. Anterior abdominal wall is intact. No skeletal lesions are noted. IMPRESSION No acute abdominal or pelvic pathology. Faint groundglass opacities noted in the right middle lobe which may represent pneumonitis/pneumonia. Fatty infiltration of the liver. A preliminary report was furnished by [facility] on 07/26/2018 at 1:41 AM Reading Radiologist: Jacques Cole MD on 07/26/2018 at 7:34 AM Rosa Stark DO CT ORDERABLES * LACTIC ACID BLOOD (07/26/2018 12:16 AM CDT) Only the most recent of2 resultswithin the time period is included. Pathologist [facility] Lactic Acid 0.7 0.5 - 2.2 mmol/L 07/26/2018 12:36 AM CDT [facility] Blood BLOOD SPECIMEN / Unknown Venipuncture / Unknown 07/26/2018 12:16 AM CDT 07/26/2018 12:28 AM CDT Roas Stark DO LAB - CHEMISTRY BIBIANA BLACKMAN [facility] Organization Address City/State/ZIP Co de Phone Number [facility] [address] [place] [address] * URINALYSIS AUTO - POINT OF CARE (AMB) STL (07/24/2018) Pathologist [facility] Clarity UA POCT cloudy Color UA POCT yellow Leukocyte UA 70 Negative Nitrite UA POCT neg Negative Urobilinogen UA 0.2 0.1 - 1.0 Protein UA POCT trace Negative pH UA 5.0 5.0 - 8.0 pH units Blood UA 3+ Negative Specific [place] UA POCT 1.015 1.002 - 1.030 Ketone UA neg Negative Bilirubin UA POCT small Negative Glucose UA neg Negative Expiration Date [id number] Lot # [id number] QC Verified Yes Yes Urine URINE / Unknown 07/24/2018 David Leggett [facility] - POINT OF CARE ORDERABLES * PAP IG LB RFLX HPV HR ASCU RFLX 16,18 (10/09/2017 9:33 AM CDT) Only the most recent of7 resultswithin the time period is included. Diagnosis [facility] ACCOUNT BILL Comment:NEGATIVE FOR INTRAEP ITHELIAL LESION AND MALIGNANCY. Specimen Adequacy [facility] ACCOUNT BILL Comment: Satisfactory for evaluation. ??Endocervical and/or squamous metaplastic cells (endocervical component) are present. Clinician Provided ICD10 [facility] ACCOUNT BILL Comment:Z01.419 Performed by [facility] ACCOUNT BILL Comment:Nae Lua Cytote chnologist ([facility]) Comment . [facility] ACCOUNT BILL Note [facility] [...] no HPV testing was performed. ? . PART OF UTERINE CERVIX / Unknown 10/09/2017 9:33 AM CDT 10/09/2017 Narrative [facility] ACCOUNT BILL - 10/11/2017 3:18 PM CDT No. of containers..01 ThinPrep Vial Resulting Agency Comment [facility] Osorio ??Mason ARIZMENDI [phone] Jean Joy MD LAB - PATHOLOGY/CYTO LOGY ORDERABLES Performing Organization Address [facility]/ZIP Co de Phone Number [facility] ACCOUNT BILL [address] [place] [address] * CULTURE STREP B (02/18/2016 10:58 AM NURSING TECHN) Strep Group B Culture Negative Negative [facility] ACCOUNT BILL Comment: Centers for Disease Control and Prevention (CDC) and [place] [employer] of Obstetricians and Gynecologists (ACOG) guidelines for prevention of group B streptococcal (GBS) disease specify co-collection of a vaginal and rectal swab specimen to maximize sensitivity of GBS detection. Per the CDC and ACOG, swabbing both the lower vagina and rectum substantially increases the yield of detection compared with sampling the vagina alone. ? . Penicillin G, ampicillin, or cefazolin are indicated for intrapartum prophylaxis of GBS colonization. Reflex susceptibility testing should be performed prior to use of clindamycin only on GBS isolates from penicillin-allergic women who are considered a high risk for anaphylaxis. Treatment with vancomycin without additional testing is warranted if resistance to clindamycin is noted. Microbiology MISCELLANEOUS SAMPLES / Unknown 02/18/2016 10:58 AM NURSING TECHN 02/18/2016 Narrative Resulting Agency Comment [facility] [address] [facility] ??[facility] [phone] Jean Joy MD LAB - MICROBIOLOGY O RDERABLES Performing Organization Address [facility]/ZIP Co de Phone Number [facility] ACCOUNT BILL [address] [place] [address] * (ABNORMAL) GTT 3 HR (100G) GESTATIONAL DIAGNOSTIC (12/28/2015 9:25 AM CDT) Glucose Fasting Gest Tolerance 90 65 - 94 mg/dL [facility] INSURANCE BILL GTT1Hr 163 65 - 179 mg/dL [facility] INSURANCE BILL Glucose - 2 hour 191(H) 65 - 154 mg/dL [facility] INSURANCE BILL GTT 3Hr 119 65 - 139 mg/dL [facility] INSURANCE BILL Note [facility] INSURANCE BILL Comment: For diagnosis of gestational diabetes, at least two values must meet or exceed normal limits, which is based on 100 gm of oral glucose challenge. Blood specimen (specimen) BLOOD SPECIMEN / Unknown 12/28/2015 9:25 AM CDT 12/28/2015 4:11 PM CDT Narrative Resulting Agency Comment [facility] [address] ??[facility] [phone] Jean Joy MD LAB - CHEMISTRY BIBIANA BLACKMAN Performing Organization Address City/[facility]/ZIP Co de Phone Number [facility] INSURANCE BILL [address] [place] [address] * (ABNORMAL) GLUCOSE CHALLENGE (12/17/2015 10:30 AM CDT) GTT 1Hr 144(H) 65 - 139 mg/dL [facility] ACCOUNT BILL Comment: According to ADA, a glucose threshold of >139 mg/dL after 50-gram load identifies approximately 80% of women with gestational diabetes mellitus, while the sensitivity is further increased to approximately 90% by a threshold of >129 mg/dL. Blood specimen (specimen) BLOOD SPECIMEN / Unknown 12/17/2015 10:30 AM CDT 12/17/2015 12:39 PM CDT Narrative Resulting Agency Comment [facility] [address] ??[facility] [phone] Jean Joy MD LAB - CHEMISTRY BIBIANA BLACKMAN Performing Organization Address City/[facility]/ZIP Co de Phone Number [facility] ACCOUNT BILL [address] [place] [address] * US OB 14+ WKS SINGLE GEST (10/25/2015 3:45 PM CDT) Anatomical Region Laterality Modality Abdomen Other Narrative 10/25/2015 3:45 PM CDT Jean Joy MD ? 10/25/2015 ??3:[address] [facility] Obstetric Ultrasound, 2nd or 3rd Trimester Pt. Name: Consuelo Darby : ??1980 : ?? Exam Date: ??10/25/2015 LMP: ??Patient's last menstrual period was 06/12/2015. ?? Gestational age by (LMP): ? 19 wks 3days GA (by today's ultrasound): ?? 19 wks 4days BPD: ??44.6 mm consistent with 19 wks 3 days HC: ? 167.9 mm consistent with 19 wks 3 days AC: ? 140.4 mm consistent with 19 wks 3 days FL: ?31.6 mm consistent with 19 wks 6 days Estimated Weight --> 0 lbs 11 oz. Presentation: breech Cardiac Motion: Yes ?? Placenta location: anterior Placental grade: 1 3 vessel cord: Yes GIOVANNY ?? nl Cranial Anatomy Y Stomach: ??Y Bladder: ??Y Gender: ??female number: ?? 1 4 Chamber Heart: Y Spine: ?? Y Kidneys: ??Y Extremeties: ??Y ??(Darden: ??Y = Normal, A = Abnormal, U = Unsatisfactory) Comments: ??No anomalies seen. Impressions: size c/w dates, no anomalies seen Financial Market Dealer: ??Akil Cook RDMS Images will be scanned into the record. Interpreting Physician: Jean Joy M.D. ?? Jean Joy MD ORDERABLES * OBSTETRIC PANEL (08/13/2015 9:22 AM CDT) Hepatitis B Virus Surface Antigen Negative Negative [facility] INSURANCE BILL Rubella Antibody 7.01 Immune >0.99 index [facility] INSURANCE BILL Comment: ? Non-immune ? <0.90 ? Equivocal ??0.90 - 0.99 ? Immune ? >0.99 ABO B [facility] INSURANCE BILL Rh Type Positive [facility] INSURANCE BILL Comment: Please note: Prior records for this patient's ABO / Rh type are not available for additional verification. Antibody Screen Negative Negative [facility] INSURANCE BILL RPR Non Reactive Non Reactive [facility] INSURANCE BILL HIV Screen 4th Generation w Reflex Non Reactive Non Reactive [facility] INSURANCE BILL WBC 9.3 3.4 - 10.8 x10E3/uL [facility] INSURANCE BILL RBC 4.24 3.77 - 5.28 x10E6/uL [facility] INSURANCE BILL Hemoglobin 13.5 11.1 - 15.9 g/dL [facility] INSURANCE BILL Hematocrit 40.4 34.0 - 46.6 % [facility] INSURANCE BILL MCV 95 79 - 97 fL [facility] INSURANCE BILL MCH 31.8 26.6 - 33.0 pg [facility] INSURANCE BILL MCHC 33.4 31.5 - 35.7 g/dL [facility] INSURANCE BILL RDW 14.1 12.3 - 15.4 % [facility] INSURANCE BILL Platelet Count 370 150 - 379 x10E3/uL [facility] INSURANCE BILL Granulocytes % 72 % [facility] INSURANCE BILL Lymphocytes % 20 % [facility] INSURANCE BILL Monocytes % 7 % [facility] INSURANCE BILL Eosinophils % 1 % [facility] INSURANCE BILL Basophils % 0 % [facility] INSURANCE BILL Immature Cells NOT NEEDED [facility] INSURANCE BILL Comment:Ancillary determined the test is not needed Granulocytes Absolute 6.6 1.4 - 7.0 x10E3/uL [facility] INSURANCE BILL Lymphocytes Absolute 1.9 0.7 - 3.1 x10E3/uL [facility] INSURANCE BILL Monocytes Absolute 0.7 0.1 - 0.9 x10E3/uL [facility] INSURANCE BILL Eosinophils Absolute 0.1 0.0 - 0.4 x10E3/uL [facility] INSURANCE BILL Basophils Absolute 0.0 0.0 - 0.2 x10E3/uL [facility] INSURANCE BILL Immature Granulocytes 0 % [facility] INSURANCE BILL Immature Granulocytes Absolute 0.0 0.0 - 0.1 x10E3/uL [facility] INSURANCE BILL nRBC NOT NEEDED [facility] INSURANCE BILL Comment:Ancillary determined the test is not needed Comment Hematology NOT NEEDED [facility] INSURANCE BILL Comment:Ancillary determined the test is not needed Blood specimen (specimen) BLOOD SPECIMEN / Unknown 08/13/2015 9:22 AM CDT 08/13/2015 12:47 PM CDT Narrative Resulting Agency Comment [facility] [address] ??[facility] [phone] Jean Joy MD LAB - CHEMISTRY BIBIANA BLACKMAN [facility] INSURANCE BILL [address] [place] [address] * IMAGING/RADIOLOGY/XRAY RESULTS ORDER (08/03/2015) Anatomical Region Laterality Modality Other Scanned Document IMAGING * LIPASE BLOOD (07/07/2013 11:19 PM CDT) Only the most recent of2 resultswithin the time period is included. Lipase 157 73 - 393 U/L 07/07/2013 11:48 PM CDT [facility] Blood BLOOD SPECIMEN / Unknown 07/07/2013 11:19 PM CDT 07/07/2013 11:24 PM CDT Arturo Cason MD LAB - CHEMISTRY BIBIANA BLACKMAN [facility] [address] [address] * XR CHEST PA/LAT (07/07/2013 10:32 PM CDT) Anatomical Region Laterality Modality Chest Radiographic Irene ging 07/08/2013 8:02 AM CDT Impressions 07/08/2013 8:22 AM CDT NO ACUTE PULMONARY DISEASE Edited by Heydi Diaz on 07/08/2013 8:13 AM Narrative 07/08/2013 8:22 AM CDT CHEST TWO VIEWS INDICATION: Chest pain FINDINGS Two views of the chest without prior show no consolidation, pleural effusion or pneumothorax. The heart size is normal. Procedure Note Jacques Dickerson MD - 07/08/2013 CHEST TWO VIEWS INDICATION: Chest pain FINDINGS Two views of the chest without prior show no consolidation, pleural effusion or pneumothorax. The heart size is normal. IMPRESSION NO ACUTE PULMONARY DISEASE Edited by Heydi Diaz on 07/08/2013 8:13 AM Arturo Cason MD DIAGNOSTIC IMAGING O RDERABLES * HCG URINE QUALITATIVE - POINT OF CARE (IP) (02/22/2012 11:45 AM NURSING TECHN) Only the most recent of3 resultswithin the time period is included. HCG Qual Urine negative Negative [facility] POCT TESTING QC Verified yes Yes [facility] POC T TESTING Urine specimen (specimen) URINE / Unknown 02/22/2012 11:45 AM NURSING TECHN Jean Amos MD LAB - POINT OF CARE ORDERABLES [facility] POCT TESTING [address] [place] [address] * NM HEPATOBILIARY WITH CCK (02/20/2012 11:43 AM NURSING TECHN) Anatomical Region Laterality Modality Abdomen Nuclear Medicine 02/20/2012 12:2 0 PM NURSING TECHN Narrative 02/20/2012 12:25 PM NURSING TECHN NUCLEAR MEDICINE HEPATOBILIARY STUDY AND GALLBLADDER EJECTION MEASUREMENT HISTORY: Right upper quadrant abdominal pain. TECHNIQUE: 5.54 mCi of technetium 99m Choletec and 1.3 mcg of cholecystokinin were utilized for the examination. There is prompt radiotracer accumulation throughout the liver without focal defects. There is normal radiotracer accumulation within the intra and extrahepatic bile ducts, gallbladder and small bowel. Gallbladder ejection fraction measurement is normal measuring 70% with a normal greater than 35%. DIAGNOSIS: Normal HIDA study Normal gallbladder ejection fraction measurement of 70% Procedure Note Edgardo Pedroza MD - 02/20/2012 NUCLEAR MEDICINE HEPATOBILIARY STUDY AND GALLBLADDER EJECTION MEASUREMENT HISTORY: Right upper quadrant abdominal pain. TECHNIQUE: 5.54 mCi of technetium 99m Choletec and 1.3 mcg of cholecystokinin were utilized for the examination. There is prompt radiotracer accumulation throughout the liver without focal defects. There is normal radiotracer accumulation within the intra and extrahepatic bile ducts, gallbladder and small bowel. Gallbladder ejection fraction measurement is normal measuring 70% with a normal greater than 35%. DIAGNOSIS: Normal HIDA study Normal gallbladder ejection fraction measurement of 70% Jean Amos MD NM ORDERABLES * ENDOSCOPY, COLON, DIAGNOSTIC (02/08/2012 11:45 AM NURSING TECHN) Narrative Procedure Note Sathya Velazco MD - 02/08/2012 11:42 AM CST Normal EGD. Random duodenal biopsies taken. Small ascending colon polyp, hot bx. Otherwise, normal colonoscopy toileum. A/P: F/U path. Consider repeat colon in 5 yrs if polyp adenoma. Low fat/ low irritant diet for now. Trial of Levsin PRN for now. May need to consider SIBO treatment if symptoms persist. Will follow as outpt. Transcriptions Sathya Velazco MD - 02/08/2012 11:44 AM CST Sathya Velazco MD GI PROCEDURE ORDERAB [facility]ES [facility] ENDOSCOPY * EGD (02/08/2012 11:45 AM NURSING TECHN) Narrative Procedure Note Sathya Velazco MD - 02/08/2012 11:42 AM CST Normal EGD. Random duodenal biopsies taken. Small ascending colon polyp, hot bx. Otherwise, normal colonoscopy toileum. A/P: F/U path. Consider repeat colon in 5 yrs if polyp adenoma. Low fat/ low irritant diet for now. Trial of Levsin PRN for now. May need to consider SIBO treatment if symptoms persist. Will follow as outpt. Transcriptions Sathya Velazco MD - 02/08/2012 11:42 AM CST Sathya Velazco MD GI PROCEDURE ORDERAB LES [facility] ENDOSCOPY * GROSS + MICRO EXAM (02/08/2012 11:20 AM NURSING TECHN) Only the most recent of4 resultswithin the time period is included. Result CASE NUMBER [id number] Comment: ORDERING PHYSICIAN ??SATHYA VELAZCO SPECIMEN TYPE ?Biopsy DATE OF PROCEDURE ?02/08/2012 PHYSICIAN[S] ? Cristian SPECIMEN LABELED ? A)BIOPSY SMALL BOWEL, B)ASCENDING POLYP PRE-OP DIAGNOSIS ? ABDOMINAL PAIN GROSS DESCRIPTION ? Received in formalin are two containers each labeled Consuelo Darby. ?? Container #1 is labeled biopsy small bowel . ??The container holds multiple pink-duncan tissue fragments measuring 0.2 cm up to 0.4 cm in greatest dimension. ??The specimen is entirely submitted in cassette labeled A. Container #2 is labeled ascending polyp . ??The container holds a single pink-duncan tissue fragment measuring 0.2 x 0.2 x 0.1 cm. ??The specimen is entirely submitted in cassette labeled B. DYT/lma MICROSCOPIC DESCRIPTION Histologic examination of the sections of the biopsy from the small intestine shows small intestinal mucosa with a preserved villous architecture. ??There is no significant evidence of malignancy or dysplasia within the sections examined. ??Intraepithelial lymphocytes or neutrophils are not significantly increased. Histologic examination of the sections of the ascending colonic polyp shows a polypoid fragment of colonic epithelium with hyperplastic epithelial changes. ??The tissue is severely cauterized and the degree of cautery limits the interpretation. ??The polyp appears somewhat inflamed. KA/mal DIAGNOSES A. ??Small intestine, biopsy - ? No significant pathologic abnormality. B. ??Colon, ascending, polypectomy - ? Severely cauterized fragment of hyperplastic colonic epithelium. CPT ?74426 x2 Overnight Caregiver ? NATHAN EASTMAN Electronically Signed By ? JD BOSWELL Performed By ? [facility] at [facility], [address], [place] [address] MISCELLANEOUS SAMPLES / Unknown 02/08/2012 11:20 AM NURSING TECHN 02/08/2012 1:57 PM NURSING TECHN Historical Provider MD LAB - PATHOLOGY/C YTOLOGY ORDERABLES * TISSUE TRANSGLUTAMINASE AB IGA (01/24/2012 11:07 AM NURSING TECHN) TTG Antibody IgA <2 0 - 3 U/mL [facility] ACCOUNT BILL Comment: ? Negative ?0 - ??3 ? Weak Positive ?? 4 - 10 ? Positive ? >10 ?. ?Tissue Transglutaminase (tTG) has been identified ?as the endomysial antigen. ??Studies have demonstr- ?ated that endomysial IgA antibodies have over 99% ?specificity for gluten sensitive enteropathy. Blood specimen (specimen) BLOOD SPECIMEN / Unknown 01/24/2012 11:07 AM NURSING TECHN 01/24/2012 2:05 PM NURSING TECHN Narrative Resulting Agency Comment [facility] [address] ??[facility] [phone] Sathya Velazco MD LAB - SEROLOGY ORDER NISSA [facility] ACCOUNT BILL * IGA BLOOD (01/24/2012 11:07 AM NURSING TECHN) IgA Quantitative 399 91 - 414 mg/dL [facility] ACCOUNT BILL Blood specimen (specimen) BLOOD SPECIMEN / Unknown 01/24/2012 11:07 AM NURSING TECHN 01/24/2012 2:05 PM NURSING TECHN Narrative Resulting Agency Comment [facility] [place] [id number] ??[facility] [phone] Sathya Velazco MD LAB - CHEMISTRY ORDE RABLES Performing Organization Address [facility] de Phone Number [facility] ACCOUNT BILL * FL UGI AND SMALL BOWEL SERIES (01/10/2012 12:04 PM CDT) Anatomical Region Laterality Modality Abdomen Radio Fluoroscop y 01/10/2012 12:2 3 PM CDT Narrative 01/10/2012 12:36 PM CDT UPPER GI AND SMALL BOWEL SERIES HISTORY: Epigastric abdominal pain. FINDINGS: The esophagus is normal. There is no evidence of a stricture or mucosal abnormality. The gastric folds appear grossly normal. There is normal gastric peristalsis. There is normal egress of contrast through the pyloric canal into the retrobulbar duodenum. There may be very minimal prominence of the folds within the proximal retrobulbar duodenum. No evidence of ulcer is identified. Ligament of Treitz is normally located. Visualized small mucosal pattern is normal. There is normal transit time from the ligament of Treitz to the cecum. The terminal ileum is normal in appearance. DIAGNOSIS: There is mild prominence of the folds of the proximal proximal retrobulbar duodenum. The findings may represent mild duodenitis. No ulcer is identified. Otherwise normal. Procedure Note Edgardo Pedroza MD - 01/10/2012 UPPER GI AND SMALL BOWEL SERIES HISTORY: Epigastric abdominal pain. FINDINGS: The esophagus is normal. There is no evidence of a stricture or mucosal abnormality. The gastric folds appear grossly normal. There is normal gastric peristalsis. There is normal egress of contrast through the pyloric canal into the retrobulbar duodenum. There may be very minimal prominence of the folds within the proximal retrobulbar duodenum. No evidence of ulcer is identified. Ligament of Treitz is normally located. Visualized small mucosal pattern is normal. There is normal transit time from the ligament of Treitz to the cecum. The terminal ileum is normal in appearance. DIAGNOSIS: There is mild prominence of the folds of the proximal proximal retrobulbar duodenum. The findings may represent mild duodenitis. No ulcer is identified. Otherwise normal. Yvan Booth MD FLUOROSCOPY ORDERABL ES * NUC HEPATOBILIARY SCAN (01/10/2012 9:47 AM CDT) Anatomical Region Laterality Modality Abdomen Nuclear Medicine 01/10/2012 10:1 2 AM CDT Impressions 01/10/2012 10:11 AM CDT Normal radionuclide hepatobiliary scintigraphy. Narrative 01/10/2012 10:11 AM CDT Hepatobiliary scan Date: 01/10/2012 History: Abdominal Pain Technique: 5.92 mCi of technetium 99m labeled Choletec was injected intravenously followed by multiple scintigraphic views at five-minute intervals over 60 minutes. Findings: The hepatobiliary scan shows prompt, homogeneous hepatic uptake. There is visualization of activity in the intrahepatic and extrahepatic biliary trees at 10 minutes, and the gallbladder at 25 minutes. There is normal kxysgfj-gk-ctiig transit (first noted at 15 minutes). Procedure Note Jayme Lim MD - 01/10/2012 Hepatobiliary scan Date: 01/10/2012 History: Abdominal Pain Technique: 5.92 mCi of technetium 99m labeled Choletec was injected intravenously followed by multiple scintigraphic views at five-minute intervals over 60 minutes. Findings: The hepatobiliary scan shows prompt, homogeneous hepatic uptake. There is visualization of activity in the intrahepatic and extrahepatic biliary trees at 10 minutes, and the gallbladder at 25 minutes. There is normal dotvhwe-mp-efepn transit (first noted at 15 minutes). IMPRESSION Normal radionuclide hepatobiliary scintigraphy. Yvan Booth MD NM ORDERABLES * US ABDOMEN LIMITED (12/29/2011 2:51 PM CDT) Anatomical Region Laterality Modality Abdomen Ultrasound 12/29/2011 2:57 PM CDT Impressions 12/29/2011 2:57 PM CDT Unremarkable examination. Narrative 12/29/2011 2:57 PM CDT Gallbladder ultrasound Clinical Indication: Abdominal pain Technique: Multiple longitudinal and transverse grayscale images of the right upper quadrant were obtained. Findings: The gallbladder is anechoic without evidence of wall thickening or pericholecystic fluid. The liver echotexture is normal. The common bile duct measures 4.7 mm in width. The pancreas is unremarkable. The right kidney is unremarkable measuring 10.6 cm in length. Procedure Note Stone Salazar MD - 12/29/2011 Gallbladder ultrasound Clinical Indication: Abdominal pain Technique: Multiple longitudinal and transverse grayscale images of the right upper quadrant were obtained. Findings: The gallbladder is anechoic without evidence of wall thickening or pericholecystic fluid. The liver echotexture is normal. The common bile duct measures 4.7 mm in width. The pancreas is unremarkable. The right kidney is unremarkable measuring 10.6 cm in length. IMPRESSION Unremarkable examination. Rodo Pickett MD US ORDERABLES * AMYLASE BLOOD (12/29/2011 1:43 PM CDT) Amylase 22 15 - 115 U/L [facility] Blood specimen (specimen) BLOOD SPECIMEN / Unknown 12/29/2011 1:43 PM CDT 12/29/2011 2:02 PM CDT Narrative [facility] - 12/29/2011 2:21 PM CDT Perform for patients with UPPER abd* Trevor Chakraborty MD LAB - CHEMISTRY BIBIANA BLACKMAN [facility] [address] [address] * PAP IG REFLX HPV ALL PTH (PO REF LAB) (01/24/2011 10:34 AM NURSING TECHN) Diagnosis [facility] ACCOUNT BILL Comment:NEGATIVE FOR INTRAEP ITHELIAL LESION AND MALIGNANCY. Specimen Adequacy [facility] ACCOUNT BILL Comment: Satisfactory for evaluation. ??Endocervical and/or squamous metaplastic cells (endocervical component) are present. Clinician Provided ICD9 [facility] ACCOUNT BILL Comment:V72.31 ; Routine terrazzo helper ecological examination Performed by [facility] ACCOUNT BILL Comment:Lynette Terry, Elementary Teacher (ASC) Comment . [facility] ACCOUNT BILL Note [facility] [...] the use of an image guided system. Reflex [facility] ACCOUNT BILL Comment: The HPV DNA reflex criteria were not met with this specimen result therefore, no HPV testing was performed. ? . MICROSCOPIC CYTOLOGIC EXAMINATION OF SMEAR OF SPECIMEN FROM FEMALE GENITAL TRACT PREPARED USING PAPANICOLAOU TECHNIQUE / Unknown 01/24/2011 10:34 AM NURSING TECHN 01/28/2011 9:14 AM NURSING TECHN Narrative [facility] ACCOUNT BILL - 01/31/2011 4:17 PM NURSING TECHN No. of containers..01 CYTYC Thin Prep Vial Resulting Agency Comment [facility] [address] [place] ??Mason ARIZMENDI [id number] Jean Joy MD LAB - PATHOLOGY/CYTO LOGY ORDERABLES [facility] ACCOUNT BILL * CBC W MANUAL DIFFERENTIAL (11/04/2009 2:05 PM CDT) WBC 8.10 4.5 - 11.0 K/cumm [facility] RBC 4.70 4.00 - 5.20 mill/cumm [facility] Hemoglobin 14.8 12.0 - 16.0 gm/dl [facility] Hematocrit 42.1 36.0 - 46.0 % [facility] MCV 89.6 80.0 - 100.0 cu microns [facility] MCH 31.5 26.0 - 34.0 uug [facility] MCHC 35.2 31.0 - 37.0 % [facility] RDW 13.2 % [facility] MPV 11.2 fl [facility] Platelet Count 252 100 - 400 K/cumm [facility] Granulocytes % 59.5 43 - 70 % [facility] Lymphocytes % 31.2 22 - 41 % [facility] Monocytes % 7.5 2 - 13 % [facility] Eosinophils % 1.4 0 - 6 % [facility] Basophils % 0.4 0 - 1 % [facility] Comment Manual Diff Automated Diff Performed [facility] BLOOD SPECIMEN / Unknown 11/04/2009 2:05 PM CDT 11/04/2009 2:09 PM CDT Yvan Booth MD LAB - HEMATOLOGY ORD ERABLES [facility] [address] [place] [address] * TSH (11/04/2009 2:05 PM CDT) TSH 2.637 0.490 - 4.670 mcIU/mL [facility] BLOOD SPECIMEN / Unknown 11/04/2009 2:05 PM CDT 11/04/2009 2:09 PM CDT Yvan Booth MD LAB - CHEMISTRY BIBIANA BLACKMAN [facility] [place] [address] * PAP SMEAR IG RFLX HPV ASCU (PO REF LAB) (12/18/2008 11:38 AM CDT) Only the most recent of2 resultswithin the time period is included. Diagnosis [facility] ACCOUNT BILL Comment: NEGATIVE FOR INTRAEPITHELIAL LESION AND MALIGNANCY. THIS SPECIMEN WAS RESCREENED PART OF OUR HVAC PROJECT ENGINEER PROGRAM. Specimen Adequacy [facility] ACCOUNT BILL Comment: Satisfactory for evaluation. ??Endocervical and/or squamous metaplastic cells (endocervical component) are present. Clinician Provided ICD9 [facility] ACCOUNT BILL Comment:V72.31 ; Routine terrazzo helper ecological examination Performed by [facility] ACCOUNT BILL Comment:Trevor Michelle , Elementary Teacher (ASCP) QC Reviewed by [facility] ACCOUNT BILL Comment:Olga Lloyd Elementary Teacher (ASCP) Comment . [facility] ACCOUNT BILL Note [...] the use of an image guided system. Reflex [facility] ACCOUNT BILL Comment: The HPV DNA reflex criteria were not met with this specimen result therefore, no HPV testing was performed. ? . MICROSCOPIC CYTOLOGIC EXAMINATION OF SMEAR OF SPECIMEN FROM FEMALE GENITAL TRACT PREPARED USING PAPANICOLAOU TECHNIQUE / Unknown 12/18/2008 11:38 AM CDT 12/19/2008 12:30 AM CDT Narrative [facility] ACCOUNT KAREEM - 12/24/2008 12:14 PM CDT LMP / Prev Treat...MTY=[id number] No. of containers..01 CYTYC Thin Prep Vial Resulting Agency Comment [facility] [address] [place] [address] ??Mason ARIZMENDI [phone] Jean Joy MD LAB - PATHOLOGY/CYTO LOGY ORDERABLES [facility] ACCOUNT BILL * URIC ACID BLOOD (09/23/2007 12:05 PM CDT) Uric Acid 5.2 2.5 - 7.5 mg/dl [facility] 09/23/2007 12:0 5 PM CDT Jean Joy MD LAB - CHEMISTRY ORDE RABLES Performing Organization Address [facility]/ZIP Co de Phone Number [facility] * (ABNORMAL) PT PTT PANEL (09/23/2007 12:05 PM CDT) PT 9.1(L) 9.4 - 11.4 seconds [facility] INR .86(L) SEE BELOW [facility] Comment: 0.92-1.12 Normal 2.0-3.0 Therapeutic Low Risk 2.5-3.5 Therapeutic High Risk PTT 25.6(L) 26.0 - 32.8 seconds [facility] 09/23/2007 12:0 5 PM CDT Narrative Resulting Agency Comment Performed By -COA Jean Joy MD LAB - COAGULATION OR DERABLES Performing Organization Address City/[facility]/ZIP Co de Phone Number [facility] * FIBRINOGEN ACTIVITY (09/23/2007 12:05 PM CDT) Fibrinogen 304.4 225.6 - 406.5 mg/dl [facility] 09/23/2007 12:0 5 PM CDT Jean Joy MD LAB - COAGULATION OR DERABLES Performing Organization Address [facility] Co de Phone Number [facility] * FIBRIN SPLIT PRODUCTS (09/23/2007 12:05 PM CDT) FDP <5 <5 mcg/ml [facility] 09/23/2007 12:0 5 PM CDT Jean Joy MD LAB - COAGULATION OR DERABLES Performing Organization Address [facility] Co de Phone Number [facility] * BILIRUBIN DIRECT (09/23/2007 12:05 PM CDT) Bilirubin Direct 0 0.0 - 0.3 mg/dl [facility] 09/23/2007 12:0 5 PM CDT Jean Joy MD LAB - CHEMISTRY ORDE HIRAL Performing Organization Address [facility] Co ca Phone Number [facility] Care Teams Applications Trainer Relationship Specialty Start Date End Date Jean Joy MD PCP - OBGYN 12/27/07 Jaden Thakur DO [address] [place] [id number] PCP - General Family Medicine Geriatric Medicine 01/05/23
--- OUTSIDE RECORDS SUMMARY | 2024-03-19 20:34 | XMS_ITS | Encounter Summary ---
Author Organization [facility] Address [address] [place] [address] Care Team Providers Care Tick Sewer Name Role Phone Jean Joy MD Unavailable Yvan Booth MD Primary Care Provider [phone] Jaden Thakur DO Unavailable Arlyn Hernandez RN Unavailable Doreen Aviles Unavailable Reason for Visit * Reason Onset Date Comments Transitions Of Care 12/28/2022 Encounter Details Date Type Department Care Team (Late st Contact Info) Description 12/28/2022 Patient Outreach [facility] - Care Coordination [address] [place] [id number] Doreen Aviles Transitions Of Care Social History Tobacco Use Types Packs/Day Years Used Date Smoking Tobacco: Former Cigarettes Q uit: 2015 Smokeless Tobacco: Never Alcohol Use Standard Drinks/Week Comments No 0 (1 standard drink = 0.6 oz pur e alcohol) Occasional AUDIT-C Answer Date Recorded Q1: How often do you have a drink containing alc ohol? Monthly or less 10/19/2022 Q2: How many drinks containi ng alcohol do you have on a typical day when you are drinking? 1 or 2 10/19/2022 Q3: How often do you have si x or more drinks on one occasion? Never 10/19/2022 Overall Financial Resource Strain (CARDIA) Answe r Date Recorded How hard is it for you to pa y for the very basics like food, housing, medical care, and heating? Not very hard 10/19/2022 PHQ-2 Answer Date Recorded Patient Health Questionnaire-2 Score 0 11/15/2022 [facility] - Occupational Stress Questionnaire Answer Date Recorded Do you feel stress - tense, restless, nervous, or anxious, or unable to sleep at night because your mind is troubled all the time - these days? Only a little 10/19/2022 Hunger Vital Sign Answer Date Recorded Within the past 12 months, y ou worried that your food would run out before you got the money to buy more. Never true 10/20/19 Within the past 12 months, t he food you bought just didn't last and you didn't have money to get more. Never true 10/19/2022 PRAPARE - Transportation Answer Date Re corded In the past 12 months, has l ack of transportation kept you from medical appointments or from getting medications? No 10/10 In the past 12 months, has l ack of transportation kept you from meetings, work, or from getting things needed for daily living? No 10/19/2022 Housing Stability Vital Sign Answer Helio e Recorded In the last 12 months, was t here a time when you were not able to pay the mortgage or rent on time? No 10/19/2022 In the last 12 months, how many places have you lived? 1 10/19/2022 In the last 12 months, was t here a time when you did not have a steady place to sleep or slept in a fci (including now)? No 10/19/2022 Sex and Gender Information Value Date Recorded Sex Assigned at Not on file Gender Identity Not on file Sexual Orientation Not on file documented as of this encounter Functional Status Functional Status Response Date of Assess ment Is person deaf or have serious hearing difficult y? No 2022 Is person blind or have serious difficulty seein g? No 2022 Does person have serious dif ficulty walking/climbing stairs? Yes 2022 Does person have difficulty dressing/bathing? Ye s 2022 Does person have difficulty doing errands alone? Yes 2022 Cognitive Status Response Date of Assessm ent Does person have difficulty concentrating/remembering/making decisions? No 2022 documented as of this encounter Miscellaneous Notes * Telephone Encounter - Doreen Orourke - 12/28/2022 11:09 AM CDT CCS called patient to check in, patients answered and confirmed HIPAA. Patients reports that the aftercare they have received has been terrible, states that they have no received any of the DME they were supposed to get from discharge on 12/14. Pt is needing a PTI arm machine, as well as a eye Dr. Appt and a Cardiology appt. Pts husbands states that there were no follow up appointments set for cardiology when they discharged from the hospital. CCS explained to the role ofthe PAC team. states that he does not have any hope that this call will get him any of the help that he is needing currently. CCS will work with PAC social studies teacher to get DME for patient as well as Appts scheduled for patient. CCS will follow up in a week if not earlier to check in on patient again. CCS called patient back to discuss DME as well as cardiology follow up. CCS let patients know that they are working with PAC JESSY Agarwal. CCS will speak with structural steel painter about talking topatients to answer medical questions. CCS will follow up again next week to check back in. documented in this encounter Plan of Treatment Not on file documented as of this encounter Visit Diagnoses Not on filedocumented in this encounter Care Teams Tick Sewer Relationship Specialty Start Date End Date Jean Joy MD PCP - OBGYN 12/27/07 Yvan Booth MD [address] [place] [phone] PCP - General 11/04/09 01/04/23 Jaden Thakur DO [facility] [place] [address] PCP - Attributed-[facility] EHP STL 09/10/19 06/28/23 Arlyn Hernandez, RN Post Acute Graphic User Interface DesignerDirector Of Database Marketing 11/21/22 Doreen Aviles Care Coordination Specialist Care Management 11/30/22 01/18/23 documented as of this encounter
--- OUTSIDE RECORDS SUMMARY | 2024-03-19 20:34 | XMS_ITS | Encounter Summary ---
Author Organization [facility] Address [address] [place] [address] Care Team Providers Care Director Of Strategic Alliances Name Role Phone Jean Joy MD Unavailable [phone] Jaden Thakur DO Unavailable [phone] Jaden Thakur DO Primary Care Provider + Reason for Visit * Reason Onset Date Comments Scheduling 05/14/2023 Encounter Details Date Type Department Care Team (Late st Contact Info) Description 05/14/2023 Telephone [facility] Pediatrics - Orthopedics [address] [place] [id number] [address] Medeiros Scheduling Social History Tobacco Use Types Packs/Day Years [...] Recorded Patient Health Questionnaire-2 Score 0 11/15/2022 [facility] - Occupational Stress [...] place to sleep or slept in a jail (including now)? No 01/10/2023 Sex and Gender [...] person have difficulty concentrating/remembering/making decisions? No 01/10/2023 documented as of this encounter Plan of Treatment Not on file documented as of this encounter Visit Diagnoses Not on filedocumented in this encounter Care Teams Director Of Strategic Alliances Relationship Specialty Start Date End Date Jean Joy MD PCP - OBGYN 12/27/07 Jaden Thakur DO [address] [place] [id number] PCP - Attributed-[facility] EHP STL 09/10/19 06/28/23 Jaden Thakur DO [facility] [place] [address] PCP - General Family Medicine Geriatric Medicine 01/05/23 documented as of this encounter
--- OUTSIDE RECORDS SUMMARY | 2024-03-19 20:34 | XMS_ITS | Encounter Summary ---
Author Organization [facility] Address [address] [facility] [place] [address] Care Team Providers Care Material Attendant Name Role Phone Jean Joy MD Unavailable [phone] Yvan Booth MD Primary Care Provider [phone] Jaden Thakur DO Unavailable [phone] Arlyn Hernandez RN Unavailable Doreen Aviles Unavailable Reason for Visit * Reason Onset Date Comments Transitional Care 01/03/2023 Encounter Details Date Type Department Care Team (Late st Contact Info) Description 01/03/2023 Patient Outreach [facility] - Care Coordination [facility] [place] [address] Arlyn Hernandez, RN Transitional Care Social History Tobacco Use Types Packs/Day [...] Recorded Patient Health Questionnaire-2 Score 0 11/15/2022 [facility] - Occupational Stress Questionnaire Answer Date Recorded [...] place to sleep or slept in a residential (including now)? No 10/19/2022 Sex and Gender [...] encounter Miscellaneous Notes * Telephone Encounter - Arlyn Hernandez RN - 01/03/2023 2:13 PM CDT Previously spoke with Dr. Lira's RN re scheduled SARAH and f/u for patient. He stated said physician was booked till March but patient could see any of the physicians in the office. Called [facility] cardiology office [phone], spoke to Sylvia and explained patient needing physician f/u for repeat SARAH that is scheduled this Sunday. First available was Jan 10 but patient already has procedure scheduled that day. Next available was February 05 at 220pm, appt scheduled. [employer] message sent to patient with appointment and office details documented in this encounter Plan of Treatment Not on file documented as of this encounter Visit Diagnoses Not on filedocumented in this encounter Care Teams Material Attendant Relationship Specialty Start Date End Date Jean Joy MD PCP - OBGYN 12/27/07 Yvan Booth MD [address] [place] [phone] PCP - General 11/04/09 01/04/23 Jaden Thakur DO [address] [place] [id number] PCP - Attributed-[facility] EHP STL 09/10/19 06/28/23 Arlyn Hernandez RN Post Acute Infusion PharmacistSales Operations Specialist 11/21/22 Doreen Aviles Care Coordination Specialist Care Management 11/30/22 01/18/23 documented as of this encounter
--- OUTSIDE RECORDS SUMMARY | 2024-03-19 20:34 | XMS_ITS | Encounter Summary ---
Author Organization [facility] Address [address] [place] [address] Care Team Providers Care [employer] Driver Name Role Phone Jean Joy MD Unavailable [phone] Jaden Thakur DO Unavailable [phone] Jaden Thakur DO Primary Care Provider + Reason for Referral * Radiology Services (Routine) - Closed Specialty Diagnoses / Procedures Referred By Contac t Referred To Contact CT Scan Diagnoses Acquired skull defect Procedures CT HEAD WO CONTRAST Rafael Hallman MD [address] [place] [address] [id number] [place] [address] Referral ID Status Reason Start Date Expiration Date Visits Re quested Visits Authorized [id number] Closed 03/28/2023 07/26/2023 1 1 STANT PROFESSOR OF ANTHROPOLOGY Reason for Visit * Radiology Services (Routine) - Closed Specialty Diagnoses / Procedures Referred By Contac t Referred To Contact CT Scan Diagnoses Acquired skull defect Procedures CT HEAD WO CONTRAST Rafael Hallman MD [address] [facility] [address] [place] [address] [facility] [address] [place] [address] Referral ID Status Reason Start Date Expiration Date Visits Re quested Visits Authorized [id number] Closed 03/28/2023 07/26/2023 1 1 Encounter Details Date Type Department Care Team (Latest Contact Info) Description 04/05/2023 9:42 AM ASSISTANT PROFESSOR OF ANTHROPOLOGY - 04/05/2023 11:59 PM ASSISTANT PROFESSOR OF ANTHROPOLOGY Hospital Encounter [facility] CAT SCAN [address] [place] [address] Rafael Hallman MD [address] [facility] [address] [place] [address] Discharge Disposition: Home or Self Care Social History Tobacco Use Types Packs/Day Years Used Date Smoking Tobacco: Former Cigarettes Q uit: 2014 Smokeless Tobacco: Never Alcohol Use Standard Drinks/Week [...] Recorded Patient Health Questionnaire-2 Score 0 11/15/2022 [facility] Given of Occupat ional Health - Occupational Stress [...] No 01/10/2023 documented as of this encounter Medications at Time of Discharge Medication Sig Dispensed Refills Start Date End Date aspirin (Aspirin) 81 MG chew tablet Take 1 (one) tablet by mouth once daily Cetirizine HCl (ZYRTEC PO) Take 10 mg by mouth once daily Cholecalciferol 25 MCG (1000 UT) Insert 2 (two) tablets into appropriate tube once daily 12/14/2022 cyclobenzaprine (Flexeril) 5 MG tablet 12/14/2022 DULoxetine (Cymbalta) 60 MG capsule 02/15/2023 HYDROcodone-acetamin ophen ([place]) 10-325 MG tablet TAKE 1/2 TO 1 TABLET BY MOUTH EVERY 6 HOURS NEEDED FOR PAIN 03/21/2023 hydrOXYzine HCl (Atarax) 25 MG tablet Take 1 (one) tablet by mouth at bedtime 12/14/2022 levETIRAcetam (Keppra) 500 MG tablet TAKE 1 TABLET BY MOUTH TWICE DAILY 60 tablet 5 03/19/2023 metoprolol tartrate IR (Lopressor) 25 MG tablet Take 1 (one) tablet by mouth 2 times daily 08/15/2022 naloxone HCl (Narcan) 4 MG/0.1ML nasal spray SPRAY 1 SPRAY IN THE NOSTRIL NEEDED FOR OPIOID REVERSAL. MAY REPEAT EVERY 2-3 MINUTES IN ALTERNATING NOSTRILS UNTIL MEDICAL ASSISTANCE ARRIVES 03/21/2023 pantoprazole EC (Protonix) 40 MG tablet Take 1 (one) tablet by mouth once daily 12/15/2022 verapamil SR 24hr (Verelan) 120 MG capsule Take 1 (one) capsule by mouth at bedtime 10/17/2022 gabapentin (Neurontin) 300 MG capsule Take 1 (one) capsule by mouth 3 times daily PLEASE REQUEST ALL FUTURE REFILLS OF THIS MEDICATION FROM YOUR PRIMARY CARE DOCTOR. 270 capsule 1 01/15/2023 04/30/2023 documented as of this encounter Plan of Treatment Not on file documented as of this encounter Procedures Procedure Name Priority Date/Time Associated Diagnosis Comments CT HEAD WO CONTRAST Routine 04/05/2023 9 :49 AM ASSISTANT PROFESSOR OF ANTHROPOLOGY Acquired skull defect documented in this encounter Results * CT HEAD WO CONTRAST (04/05/2023 9:49 AM ASSISTANT PROFESSOR OF ANTHROPOLOGY) Anatomical Region Laterality Modality Head Computed Tomogra phy 04/05/2023 11:2 1 AM ASSISTANT PROFESSOR OF ANTHROPOLOGY Impressions 04/05/2023 12:03 PM ASSISTANT PROFESSOR OF ANTHROPOLOGY IMPRESSION: Compared to prior head CT 02/03/2023: [...] pseudomeningocele. Report dictated by Valdez Vieyra DO (Picu Nurse). I, Lonnie Rae MD have personally reviewed and interpreted this examination/study. 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 TECHNIQUE: CT of the head was performed without contrast according to standard protocol. CT dose reduction technique was used, including Automated Exposure Control. 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 CT dose reduction technique was used, including Automated Exposure Control. ADDITIONAL HISTORY: s/p cranioplasty with [place] bone on 01/10/23following a decompressive craniectomy for [...] pseudomeningocele. Report dictated by Valdez Vieyra DO (Picu Nurse). I, Lonnie Rae MD have personally reviewed and interpreted this examination/study. > Interpreting Provider: Lonnie Rae MD on 04/05/2023 12:03 PM Rafael Hallman MD CT ORDERABLES documented in this encounter Visit Diagnoses Diagnosis Acquired skull defect Other specified acquired deformity of head documented in this encounter Care Teams [employer] Driver Relationship Specialty Start Date End Date Jean Joy MD PCP - OBGYN 12/27/07 Jaden Thakur DO [address] [place] [address] PCP - Attributed-[facility] STL 09/10/19 06/28/23 Jaden Thakur DO [address] [place] [id number] PCP - General Family Medicine Geriatric Medicine 01/05/23 documented as of this encounter
--- OUTSIDE RECORDS SUMMARY | 2024-03-19 20:34 | XMS_ITS | Encounter Summary ---
Author Organization [facility] Address [address] [facility] [place] [address] Care Team Providers Care Automatic [employer] Machine Operator Name Role Phone Jean Joy MD Unavailable [phone] Jaden Thakur DO Unavailable [phone] Jaden Thakur DO Primary Care Provider + Reason for Visit * Reason Onset Date Comments General 02/16/2023 Encounter Details Date Type Department Care Team (Late st Contact Info) Description 02/16/2023 Telephone [facility] - Neurosurgery [address] [place] [phone] Becky Betancourt, RN General Social History Tobacco Use Types Packs/Day Years [...] Recorded Patient Health Questionnaire-2 Score 0 11/15/2022 [facility] of Occupat ional [facility] - Occupational Stress Questionnaire Answer Date Recorded [...] place to sleep or slept in a correction (including now)? No 01/10/2023 Sex and Gender [...] No 01/10/2023 documented as of this encounter Miscellaneous Notes * Telephone Encounter - Becky Betancourt RN - 02/16/2023 12:45 PM [employer] Call placed to patient.Per PCP Lauren BOGGS states patient was seen in office on yesterday. has redness at suture site and sutures need to be removed. Unable to contact patient. Left voice mail for a return call. HAND [employer]UNA [employer]AT documented in this encounter Plan of Treatment Not on file documented as of this encounter Visit Diagnoses Not on filedocumented in this encounter Care Teams Automatic [employer] Machine Operator Relationship Specialty Start Date End Date Jean Joy MD PCP - OBGYN 12/27/07 Jaden Thakur DO [address] [place] [address] PCP - Attributed-[facility] STL 09/10/19 06/28/23 Jaden Thakur DO [address] [place] [id number] PCP - General Family Medicine Geriatric Medicine 01/05/23 documented as of this encounter
--- OUTSIDE RECORDS SUMMARY | 2024-03-19 20:34 | XMS_ITS | Encounter Summary ---
Author Organization [facility] Address [address] [place] [address] Care Team Providers Care Conventional Machinist Name Role Phone Jean Joy MD Unavailable [phone] Jaden Thakur DO Unavailable [phone] Jaden Thakur DO Primary Care Provider + Reason for Visit * Reason Onset Date Comments General 02/20/2023 Encounter Details Date Type Department Care Team (Late st Contact Info) Description 02/20/2023 Telephone [facility] - Neurosurgery [address] [place] [phone] Becky Betancourt, RN General Social History [...] Recorded Patient Health Questionnaire-2 Score 0 11/15/2022 [facility] of Occupat ional [facility] - Occupational Stress Questionnaire Answer Date [...] place to sleep or slept in a long term (including now)? No 01/10/2023 Sex and Gender [...] Telephone Encounter - Becky Betancourt RN - 02/20/2023 9:10 AM TRANSPORTATION ASSISTANT Returned call to patient to [facility] to come to clinic on 02/21/23 for suture removal [place] office at 1030. SPORTATION ASSISTANT documented in this encounter Plan of Treatment Not on file documented as of this encounter Visit Diagnoses Not on filedocumented in this encounter Care Teams Conventional Machinist Relationship Specialty Start Date End Date Jean Joy MD PCP - OBGYN 12/27/07 Jaden Thakur DO [facility] [place] [address] PCP - Attributed-[facility] STL 09/10/19 06/28/23 Jaden Thakur DO [facility] [place] [address] PCP - General Family Medicine Geriatric Medicine 01/05/23 documented as of this encounter
--- OUTSIDE RECORDS SUMMARY | 2024-03-19 20:34 | XMS_ITS | Encounter Summary ---
Author Organization [facility] Address [address] [facility] [place] [address] Care Team Providers Care Marine Engine Driver Name Role Phone Jean Joy MD Unavailable [phone] Jaden Thakur DO Unavailable [phone] Jaden Thakur DO Primary Care Provider + Reason for Visit * Reason Comments Refill Request Encounter Details Date Type Department Care Team (Late st Contact Info) Description 03/16/2023 Refill [facility] - Neurology [address] [facility], [place] [phone] Jim Walter MD [address] [place] [address] Refill Request Social History Tobacco Use Types Packs/Day Years [...] file 03/2022 Overall Financial Resource Strain (CARDIA) Anitae r Date Recorded How hard is it for you to pa y for the very basics like food, housing, medical care, and heating? Not hard at all 01/10/2023 PHQ-2 Answer Date Recorded Patient Health Questionnaire-2 Score 0 11/15/2022 [facility] of Occupat ional Health - Occupational Stress [...] place to sleep or slept in a detention (including now)? No 01/10/2023 Sex and Gender [...] on filedocumented in this encounter Care Teams Marine Engine Driver Relationship Specialty Start Date End Date Jean Joy MD PCP - OBGYN 12/27/07 Jaden Thakur DO [address] [place] [id number] PCP - Attributed-[facility] STL 09/10/19 06/28/23 Jaden Thakur DO [address] [place] [address] PCP - General Family Medicine Geriatric Medicine 01/05/23 documented as of this encounter
--- OUTSIDE RECORDS SUMMARY | 2024-03-19 20:34 | XMS_ITS | Encounter Summary ---
Author Organization [facility] Address [address] [place] [address] Care Team Providers Care Career Information Specialist Name Role Phone Jean Joy MD Unavailable Jaden Thakur DO Unavailable [phone] Arlyn Hernandez RN Unavailable Doreen Aviles Unavailable Jaden Thakur DO Primary Care Provider + Reason for Visit * Auth/Cert (Routine) Specialty Diagnoses / Procedures Referred By Conttorin t Referred To Contact Diagnoses Acquired skull defect acquired skull defect Procedures OK REPAIR SKULL DEFECT,>5CM CRANIOPLASTY Referral ID Status Reason Start Date Expiration Date Visits Re quested Visits Authorized [id number] 1 1 Encounter Details Date Type Department Care Team (Late st Contact Info) Description 01/10/2023 11:57 AM CDT Anesthesia Event [facility] [address] [place] [address] Ambrocio Leal II, MD [address] [place] [address] Galina Torres APRN-POULTRY HATCHERY SUPERVISOR [address] [facility] [place] [address] Anesthesia Record Procedure Summary Procedure Name Responsible Anesthesiologist Anesthesia Start Time Anesthesia Stop Time right cranioplasty, replacement of [place] bone (Right: Head) Ambrocio Leal II, MD 01/10/23 1157 01/10/23 1452 Events Date Time Event Comment 01/10/2023 1117 1157 An Start 1200 Pt In Room 1201 An Start Data 1211 PT Reassessment 1212 Induction 1214 An Intubation 1221 Pt Repositioned Bed turned d egrees 1239 Anes Ready 1255 Time Out Anesthesia part icipated in timeout at the time documented in the record by nursing 1256 Proc Start 1432 Proc Stop 1435 An Emergence 1437 Extubation 1440 ANPTO2 1440 an stop data 1441 Pt out of Room 1452 An Stop Meds Name Total fentaNYL 100 mcg/2ml injection 200 mcg propofol 200mg/20mL injection 230 mg rocuronium 50 mg/5 mL injection 60 mg midazolam 2 mg/2mL injection 2 mg famotidine 20 mg/2mL injection 20 mg dexamethasone 10 mg/ml PF injection 4 mg ceFAZolin 2,000 mg IVPB 2 g lidocaine PF 2% 100 mg phenylephrine 100 mcg/mL syringe 500 mcg phenylephrine 100 mcg/mL syringe 4.8 mg ePHEDrine injection 30 mg ondansetron 4mg/2mL injection 4 mg hydromorphone 2 mg/10mL prefilled syring e 2 mg levETIRAcetam (Keppra) 500 mg injection 1,000 mg magnesium sulfate 500 mg/mL injection 2 g esmolol 100 mg/10mL injection 40 mg NS (0.9% NaCl) 800 mL NS (0.9% NaCl) 100 mL lactated ringers infusion 500 mL * Agents Name Insp. N2O Exp. Sevoflurane Exp. N2O O2 Air Insp. Sevoflurane * Blood No blood administrations on file. Lines, Drains, and Airways Type Details Placement Removal Enteral - 11/01/22; 1445 (Per GI note); PEG; Abdomen, Left, Upper; 24 (Per GI note); 01/10/23; 1646; Not present on admission, removal date unknown 11/01/22 1445 by Jessica Enriquez RN 01/10/23 1646 by Dixie Fuentes RN Peripheral IV Date: 01/10/23; Time : 1135; Orientation: Anterior, Right; Tolerance: Well 01/10/23 1135 by Sylvia Ray RN 01/11/23 1433 by Nabeel Cristina RN ETT Date: 01/10/23; Time : 1214; Placed By: AMOR Lucas; Vent: easy mask; Induction: Standard IV; Blade Type: Milana; Blade Size: 3; Laryngoscopy View: Grade 1 (full cords); Intubation Adjuncts: Stylet; Tube: Endotracheal Tube; Tube Type: Cuffed-inflated; Tube Size(mm): 7 MM; Depth of Insertion: 22 CM; Measured From: lips; Attempts: 1; Cuff Infated: Air; Cuff Vol(mL): 7 mL; Verified By: Direct visualization, Bilateral breath sounds, Chest Auscultation, CO2 Monitor 01/10/23 1214 by Lurdes Malave APRN-CRNA 01/10/23 1437 by Lurdes Malave APRN-CRNA Peripheral IV Date: 01/10/23; Time : 1248; Orientation: Right; Placed By: Ambrocio Leal II, MD; Tolerance: General Anesthesia 01/10/23 1248 by Lurdes Malave APRN-CRNA 01/11/23 1434 by Nabeel Cristina RN Procedural Site (Incision) 01/10/23; 1402; Right; Head; dressing: carla, bacitracin, telfa, medipore tape; 01/11/23; 2227 01/10/23 1402 by Zakiya Prabhakar RN 01/11/23 2227 by Generic, Auto Release documented in this encounter Social History Tobacco Use Types Packs/Day Years [...] Recorded Patient Health Questionnaire-2 Score 0 11/15/2022 [facility] - Occupational Stress [...] money to buy more. Never true 01/11/20 Within the past 12 months, t he [...] place to sleep or slept in a skilled nursing (including now)? 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 M1 occlusion s/p TNK and MT and TICI2b revascularization. 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 She is s/p right cranioplasty, replacement of [place] bone (Right) with Dr. Martin for Acquired skull defect. Pt tolerated anesthesia well. Pt pain well controlled. VSS. AF. On RA. Pt denies fever, chills,chest pain, sob, abdo miranda pain, nausea, vomiting. 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.2] Mental Status: awake, alert, sufficiently recovered from acute administration of anesthesia to participate in the evaluation and oriented Neuro Status: No numbness, tingling or visual disturbances Respiratory Function: natural Cardiac Function: stable Postop Pain: acceptable to the patient and adequate Postop Hydration: adequate Postop Nausea: none Assessment: no apparent anesthetic complications, patient tolerated procedure well and no evidence of recall Patient Disposition: Release from Anesthesia Care Additional Comments: Dressing over right side of the temporal region NOTABLE EVENTS: No notable events documented. Ambrocio Vale MD Anesthesiology & Critical Care, PGY-2 [facility] 01/11/2023 8:48 AM * Ambrocio Leal II, MD - 01/10/2023 3:04 PM CDT ANESTHESIA POSTOP EVALUATION NOTE Procedure: right cranioplasty, replacement of [place] bone (Right: Head) Consuelo Darby is a 42 year old female Patient Vitals for the past 6 hrs: BP Temp Pulse Resp SpO2 Pain Rating Score #1 Pain Scale/Observation Pulse - (SPO2/Cuff) 01/10/23 1105 131/86 97.9 ??F (36.6 ??C) 73 15 100 % 7 N 72 bpm 01/10/23 1121 120/75 -- 74 13 98 % -- -- 74 bpm Anesthesia Type: general ETT Pre-op Diagnosis Codes: * 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 * Ambrocio Leal II, MD - 01/10/2023 11:17 AM CDT ANESTHESIA PREOPERATIVE EVALUATION NOTE Procedure: right cranioplasty, replacement of [place] bone (Right) Last Solids/Dairy: 1999 (01/10/2023 10:44 AM) Last Clear Liquids: 07 (01/10/2023 10:44 AM) Vitals: Patient Vitals for the past 6 hrs: BP Pulse Resp SpO2 01/10/23 1105 131/86 73 15 100 % LMP: No LMP recorded (lmp unknown). (Menstrual status: Continuous Control). OB Status: Continuous Control ANESTHESIA PRE-EVALUATION NOTE History of Present Illness: 42 year old female with a pmhx of Acute cystitis without hematuria (12/22/2022 10 day treatment of OMNICEF),Cerebrovascular accident (CVA) d/t thrombosis of right middle cerebral artery on 3d/tfrom cardiac vegetations (TTE showed mobile aortic valve vegetation). M1 occlusion s/p TNK and MT and TICI2b revascularization. 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 [facility] Thrombectomy c/b R iliac and common femoral occlusion s/p thrombectomy. He is scheduled for a right cranioplasty, replacement of [place] bone (Right) with Dr. Martin for Acquired skull defect. Allergies: Latex, Vancomycin HPI: -10/23- SARAH concerning for aortic cusp vegetations. Rheum, Cardiology and CT Surgery consulted. Blood clx ordered for plan to start heparin gtt after 24 prelim negative -10/24 - patient had a temp 100.2, increase in WBC. ID consulted. Started empiric abx. -10/25 extubated. Dentist evaluated, no concern for dental issues. CT cardiac resulted more concerning for vegetation. Heparin gtt started. -10/26 CT a/p showed occlusion in R distal external iliac and common femoral. Bilateral pulses are present. Vascular surgery consult. 10/30: R common femoral thrombectomy and patch angioplasty. 10/31: CT A/P obtained / concern for abscess by GI team while evaluating her for consideration of G tube but repeat imaging on 11/01 showed no abscess-- likely postsurgical changes after vascular surgery. 11/02 GI took her to OR for G tube. 11/03 started warfarin bridge 11/04 CT head for headache and eye discomfort after bumping her head on hemicrani site. NSGY aware and evaluated her. CT looks stable. 11/05 had a fever. Infectious workup initiated and ID reconsulted. Plan to broaden spectrum (was on ceftriaxone + vanc, switched to cefe + vanc + doxycycline ); ramirez cultures done and further work-up with imaging after that with CT abd pelvis and brain MRI 11/08: Doppler US of extremities showed b/l UE cephalic vein superficial thrombosis 11/09: MRI brain showed concerns for increased cortical enhancement likely a sequela to the infarction but cerebritis/meningitis could not be excluded. Puentes changed by urology. 11/10: Since CT abd/pelvis showed concerns of abscess under the peg, pt underwent gastric erosion forabscess underlying peg by ACS but no fluid could be obtained. IR oculd not do the procedure since they deemed that it was hardly 2 ml of collection. Vascular surgery also saw pt again due to post-surgical hematoma at femoral vessel site but deemed clear for no further intervention. 11/12: Since fevers continued, regimen broadened from Cefepime + vanc+ doxy + flagyl to meropenem + doxy; however, vanc discontinued due to concerns for drug fever 11/14: RUQ US with doppler also done per IM recs for transamnitis but unremarkable and transamnitis deemed 2/2 cefepime 11/15: LP was done by IR which has till date been unremarkable. 11/16: CT abd/pelvis done for routine follow-up purpose and had shown mild improvement in fluid collection in right groiin with resolution of gas locules but unchanged size. Vasc Sx aware. And fluid collection underneath peg resolved. Pt was also restarted on Warfarin with enoxaparin bridge for anticoagulation from stroke stand-point and ?thrombotic cardiac vegetation to maintain INR goal 2-3 (per chart review) The patient is a current non-smoker. Physical Exam: Orientation X3 Airway/Mallampati Score: II Mouth Opening Distance: 3 fingerwidths Neck ROM: limited TM Distance: > 3 FB Teeth: normal Heart: normal - S1 S2 Lungs: clear to ausculation bilaterally Physical Exam Additional Comments: Pt reports she has a subluxation of her left shoulder per OT Trochanteric bursitis of left hip 12/08/2022 Review of Systems: History of anesthetic complications: Yes Sleep Apnea Risk: No Malignant Hyperthermia: No Difficult IV Access: Yes (uses sonosite) GERD: Yes, well controlled Poor Exercise Tolerance: Yes Recent Chest Pain: No Shortness of Breath: No AICD/Pacemaker: No Renal Disease: No Diagnostic Tests: ECG(s) reviewed: Yes Echo(s) reviewed: Yes. Lab(s) reviewed: Yes (12/26/2022). Other Findings: 01/05/2023 Echo ??? Left??Ventricle: Left ventricle size is normal. Normal wall thickness. Normal systolic functionwith a visually estimated EF of 55 - 60%. ??? Right??Ventricle: Right ventricle size is normal. Normal systolic function. ??? Left??Atrium: Left atrium size is normal. Normal appendage flow velocity. No thrombus present in the left atrial appendage (MADELEINE). ??? Right??Atrium: Right atrium size is normal. ??? Aortic??Valve: Valve structure is trileaflet. Mildly thickened right leaflet. No restricted motion. No regurgitation. No stenosis. Previously visualized aortic valve mass no longer present. 12/21/2022 CT Head ?? IMPRESSION: ?? 1.Redemonstration of postsurgical changes of right frontotemporoparietal decompressive craniectomy with expected interval evolution of the previously seen postsurgical changes and expected interval evolution of the 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 2.Subtle paradoxical medial deviation of the anterior aspect of the craniectomy flap but no mass effect or significant compression to suggest Syndrome of the trephined. 3.No new acute intracranial hemorrhage 11/06/2022 Echocardiogram Left??Ventricle: Left ventricle size is normal. EDV Index [...] e' lateral velocity is 14.141 cm/s. MV e'septal velocity is 10.702 cm/s. ??? Right ventricle size is normal. Normal free wall thickness. RV wall thickness is 0.5 cm. Normalwall motion. Normal systolic function. TAPSE is 2.324 cm. Fractional area change (FAC) is 49.70%. ??? Left atrium size is normal. Left atrium volume index is 25.1 mL/m2. The interatrial septum appears normal with no evidence of a shunt by color flow Doppler. No mass present. ??? Estimated right atrial pressure is normal (~3 mmHg). IVC is normal in size. SVC was not assessed. ??? Estimated sPAP is 23.0 mmHg. Estimated RVSP is 23.0 mmHg. RAP is 3.0 mmHg. Mean PA pressure of 15 mmHg. PVR < 1.5 Wood units. ??? Normal valve morphology nd function. ??? No pericardial effusion. ??? Normal sized annulus, sinus of Valsalva (aortic root), ascending aorta, aortic arch, descendingaorta and abdominal aorta. ?? Start of PAT Evaluation: - if BP is poorly controlled (eg SBP >180 or DBP >110) then contact Dr. Pitt or AIC - if patient taking MACK-I or ARB or Entresto then hold ONLY AM dose on DOS unless severe CHF or poorly controlled HTN This evaluation was based on PAT clinic visit I. Perioperative Cardiac Risk Index Stratification based on 2014 ACC/AHA Guidelines for patients undergoing noncardiac surgery Perioperative risk of a Major Adverse Cardiac Event (MACE) during hospitalization. Add one point (0-6) for each positive RCRI (Revised Cardiac Risk Indicator) 1. Is the Surgical Procedure High-Risk? NO 2. History of Ischemic Heart Disease? NO If yes then paste summary of most recent cath / stress tests under Other Additional Findings/Comments section above: 3. History of CHF? no If yes then paste summary of most recent TTE / SARAH under Other Additional Findings/Comments sectionabove: Murmur? no if yes and without recent echocardiogram then may need TTE contact Dr. Pitt or FARHAD 4. History of Cerebrovascular Disease? Prior TIA or stroke yes 2022 left hemiplegia If yes then paste summary of most any relevant neurovascular imaging or carotid duplex results under Other Additional Findings/Comments section above: Carotid bruit? no if yes then may need carotid duplex - contact Dr. Pitt or FARHAD 5. Insulin-Dependent Diabetes? no Insulin pump? no if yes then patient was instructed to continue at 75% basal rate on DOS? no Long acting insulin: glargine (Lantus,Toujeo, Basaglar), detemir (Lemenir), degludec (Tresiba) NO 6. Preoperative Creatinine > 2 mg/dl? no Baseline Cr? 0.53 Total RCRI / MACE score 1 Point >= 0.9% Functional capacity > 4 METS? no If MACE < 1%, no further testing required. Proceed to surgery. Patient is at low risk of MACE. If MACE > 1% Elevated risk. Need to assess the patient's functional capacity. 4 METs = Can walk up a flight of steps or a hill or walk on level ground at 3 mph If > 4 METs. Proceed to surgery. If < 4 METs or unknown functional capacity then discuss with attending, as further workup may beindicated. II. Consults: NO WBC 12/14/2022 11.3 and 12/21/2022 12.3. SARAH ordered will reach out to cardiology to determine if patient should have SARAH prior to surgery. Per cardiology the Embolus is gone. Dr. Michael recommends to continue anticoagulation for now and stopit before Cranioplasty. He recommends keeping Anticoagulation OFF after cranioplasty. Dr. Michael's fellow communicated that to them. III. CIEDs: Does patient have a CIED (cardiovascular implantable electronic device eg: PM, AICD)? no If yes then copy and paste interrogation report here. Timing of interrogation should be within 1 year for PM and Within 6 months for AICD Barton Information needed (continuous miner operator helper, mode, indication for CIED, battery life, magnet function): IV. Anticoagulants: Are they receiving antiplatelet/anticoagulant medications (besides ASA)? What is the periop plan? YES - plan is to Coumadin instructions per surgeon and cardiology recommendationsto Dr. Martin. Dr. Michael does not want to stop yet d/t the structured embolized somewhere, clot could likely be resolved or in development per (Dr. Michael message) _ V. Previous blood transfusion? no If potential for large EBL: then obtain 1st T&S in PAT clinic (unless previously done and no transfusions since). Order repeat T&S (aka re-type) for DOS :If chart review only and h/o previous transfusions without recent T&S, then need to come in for T&S as above and order retype for DOS Patients with previous transfusions may have developed alloantibodies to donor RBC surface antigens, which may cause hemolytic or delayed hemolytic transfusion reactions upon subsequent exposure to donor PRBCs. VII. Known MANUEL or STOP-BANG> 5: no Snoring, Tired, Observed apnea, high blood Pressure, BMI>35, Age>50, Neck circumference>18 If yes then: update Epic problem list to include: MANUEL If patient has already diagnosed MANUEL and is being admitted then initiate order set: MANUEL --> Pul Inpatient Sleep Apnea Standing orders (order set 4525) 1. Also click Home CPAP for hospital use if applicable. 2. Select Phase of Care under options tab in upper right corner. 3. Choose post-op and sign (not sign and hold) phase of care and select the scheduled procedure. Remind patient to bring home unit if staying overnight. If pt has STOP-BANG >=5 with undiagnosed MANUEL and is being admitted then order: IP Consult to [employer] (comment regarding consult for undiagnosed MANUEL) - Follow steps 2 and 3 above If pt has STOP-BANG >=5 with undiagnosed MANUEL and is outpatient and interested in setting up a sleep study then: - send [facility] message to MANA and nav Pitt Patient was educated about the potential implications of MANUEL on their perioperative course and recommendations for follow-up care were addressed - including inpatient consult(s) as above? no VIII. Known or suspected difficult airway no and complete previous airway management section above If yes then: update Epic problem list to include: difficult airway and call Dr. Sweetie or AIC IX. Frailty screen: No data recorded X. Suboxone (Buprenorphine / Naloxone) therapy? N/A GLP-1 Agonists No XI. Most recent EKG: EKG needed within 6 months if: (ASA >= 3 OR any RCRI) AND non-low risk procedure 10/19/2022 ST [address] XI. Additional testing needed within 3 months prior to DOS (if possible, else on DOS): - CBC w/o Diff if ASA >= 3 OR expected blood loss >250 OR previously abnormal - BMP is ASA >= 3 OR taking diuretics, K+ supplements, MACK-I, ARBs OR any RCRI - CMP (instead of BMP) for patient with chronic liver disease or previously abnormal - PT/ PTT/ INR if recent use of anticoagulants OR scheduled for major vascular procedures includingaortic and carotid stents / aneurysm coiling / TIPS Additional testing needed on DOS : - EPOC blood glucose for patients w/ DM - EPOC whole blood K+ for patient with ESRD or poorly controlled K+ Labs ordered today including PAT and surgeon orders: none Labs/tests ordered or in need of review on DOS: PT/INR, T&S and hCG Summary: Consuelo Darby is a 42 year old female presenting for right cranioplasty, replacement of [place] bone (Right). They have an ASA score of 3 and a RCRI / MACE score of 1 Point >= 0.9% Follow up results - have ALL the above ordered labs and vital signs been reviewed? YES - results are grossly WNL for this patient They ARE NOT OPTIMIZED - PAT EVALUATION COMPLETE Ambrocio Leal II, MD 01/10/2023 11:17 AM for this procedure. Final clearance pending Rotary Swaging Machine Operator evaluation DOS. Preoperative plan was not discussed w/ PAT attending. To be discussed DOS in ACu. End of PAT Evaluation: ANESTHESIA PLAN ASA Score: 3 NPO Status: No solids since midnight and No liquids within 2 hours Anesthesia Plan: general ETT Planned Induction: intravenous Planned Postop Destination: PACU Anesthetic plan was discussed with: patient (Per surgery) Anesthetic Plan discussion was: Consented (Per surgery) The patient's procedural Anesthetic Plan was discussed with the PEDIATRIC ORTHODONTIST. BMI, Height, Weight Tobacco History Estimated body mass index is 37.76 kg/m?? as calculated from the following: Height as of this encounter: 1.626 m (5' 4 ). Weight as of 01/05/23: 99.8 kg (220 lb). Social History Tobacco Use Smoking Status Former ??? Packs/day: .5 ??? Types: Cigarettes ??? Quit date: 2014 ??? Years since quittin.8 Smokeless Tobacco Never Alcohol History Drug History Social History Substance and Sexual Activity Alcohol Use No ??? Alcohol/week: 0.0 - 1.7 standard drinks of alcohol Comment: Occasional Social History Substance and Sexual Activity Drug Use No Outpatient Medications: Inpatient Medications: No outpatient medications have been marked as taking for the 01/10/23 encounter (Hospital Encounter). Current Facility-Administered Medications Medication Dose Last Admin ??? lactated ringers Allergies: Allergies Allergen Reactions ??? 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 Fever Relevant Problems Cardiovascular (+) Hypertension Neuro/Psych (+) Acute cerebrovascular accident (CVA) due to embolism of right middle cerebral artery (CMS/HCC) (+) Migraine (+) Right middle cerebral artery stroke (CMS/HCC) GI (+) GERD (gastroesophageal reflux disease) Other (+) Hepatocellular injury Problem List: Patient Active Problem List Diagnosis Date Noted ??? Acute cerebrovascular accident (CVA) due to embolism of right middle cerebral artery (CMS/HCC) 10/19/2022 Priority: High ??? Nihss score 9 10/19/2022 Priority: High ??? Received intravenous tissue plasminogen activator (tPA) in emergency department 10/19/2022 Priority: High ??? Common femoral artery injury, right, subsequent encounter 12/29/2022 Priority: Not Prioritized ??? Acquired skull defect 12/21/2022 Priority: Not Prioritized ??? Anemia 11/12/2022 Priority: Not Prioritized ??? Hepatocellular injury 11/12/2022 Priority: Not Prioritized ??? Presence of externally removable percutaneous endoscopic gastrostomy (PEG) tube (CMS/HCC) 2022 Priority: Not Prioritized ??? Hemianopsia 10/19/2022 Priority: Not Prioritized ??? Weakness 10/19/2022 Priority: Not Prioritized ??? Left-sided sensory deficit present 10/19/2022 Priority: Not Prioritized ??? 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 Migraine 10/19/2022 Priority: Not Prioritized ??? Hypertension 10/19/2022 Priority: Not Prioritized ??? Right middle cerebral artery stroke (CMS/HCC) 10/19/2022 ??? GERD (gastroesophageal reflux disease) Medical History: Past Medical History: Diagnosis Date ??? Abdominal pain, right upper quadrant ??? Anemia ??? CVA (cerebral vascular accident) (CMS/HCC) ??? Essential hypertension ??? GERD (gastroesophageal reflux disease) ??? History of hypertension gestational hypertension Surgical History: Past Surgical History: Procedure Laterality Date ??? Section ??? Section 03/01/2016 SECTION REPEAT ??? Cholecystectomy ??? Cholecystectomy, Laparoscopic 02/22/2012 N/A; LAPAROSCOPIC CHOLECYSTECTOMY SINGLE INCISION ??? COLONOSCOPY ??? COLONOSCOPY N/A 08/25/2021 HYPERPLASTIC, REPEAT 5 YEARS, AYMERICH ??? COLONOSCOPY WITH POLYPECTOMY N/A 08/25/2021 N/A; COLONOSCOPY REMOVAL OR ABLATION TUMOR/POLYP/LESION (ANY METHOD) ??? CRANIECTOMY Right 10/20/2022 Right; RIGHT DECOMPRESSIVE HEMICRANIECTOMY, POSS ICP MONITOR, POSS EVD ??? Embolectomy Right 10/30/2022 Right; RIGHT ILEO femoral thrombectomy VIA CUTDOWN. REPAIR OF FEMORAL ARTERY WITH PATCH. ANGIOGRAM ??? ENDOSCOPY, UPPER N/A 2022 N/A; ESOPHAGOGASTRODUODENOSCOPY (EGD) DIAGNOSTIC with PEG Placement ??? ENDOSCOPY, UPPER N/A 11/10/2022 N/A; EGD, POSS. EX-LAP LEVEL 3 @ 1500 SAMPLE DYE MIXER Status: No LMP recorded (lmp unknown). (Menstrual status: Continuous Control). Continuous Control OB History Para Term AB Living 2 2 1 1 0 2 SAB IAB Ectopic Multiple Live Births 0 0 0 0 1 # Outcome Date GA Lbr Crescencio/2nd Weight Sex Delivery Anes PTL Lv 2 Term 03/01/16 37w5d 2778 g (6 lb 2 oz) F , S Spinal RODNEY Name: Ronda Apgar1: 8 Apgar5: 9 1 09/23/07 36w0d F P Comments: Severe PIH Name: Lizabeth Covid Vaccine: Lab Results: Recent Labs Component Name 11/05/22 1310 SARSCOV2 Not detected Recent Labs Component Name 01/10/23 1030 HCGURINE Negative Recent Labs Base Name 11/13/22 1534 11/13/22 0414 [id number] - 120* SPECIMENTYPE Plasma Cap Fingerstick Recent Labs Component Name 12/21/22 1107 10/23/22 0129 10/22/22 0153 WBC 12.3* - - RBC 4.98 - - HCT 45.5* - - HGB 14.4 - - PLTCOUNT 351 - - PLT - - 199 MCV 91.4 - - MCH 28.9 - - MCHC 31.6 - - MPV 10.8 - - - = values in this interval not displayed. Recent Labs Component Name 12/26/22 1156 ABORH B POS ABSCG NEG Recent Labs Component Name 12/06/22 1355 11/05/22 1254 BLOODU - 1+* BLOODUA 2+* - WBCU - 6-10* WBCUA >100* - NITRITEUA Negative - NITRITE - Negative PROTEINUA 2+* - PROTEINU - Negative Recent Labs Component Name 12/21/22 1107 12/14/22 0658 SODIUM - 136 POTASSIUM 3.7 4.3 CALCIUM 9.8 9.5 CHLORIDE - 105 CO2 27 21* GLUCOSE 76 97 BUN 10 17 CREATININE 0.53* 0.71 Recent Labs Component Name 11/17/22 0202 MAGNESIUM 2.5 Recent Labs Component Name 11/17/22 0202 PHOS 3.6 Recent Labs Component Name 10/30/22 1333 PH 7.40 PO2 228* PCO2 39 BE -0.5 Recent Labs Component Name 12/21/22 1107 PTT 26.9 PT 18.7* INR 1.6 Recent Labs Component Name 11/13/22 0210 TSH 5.706* No results found for requested labs within last 120 days. Recent Labs Result Component Current Result Alkaline Phosphatase 94 (11/17/2022) ALT 257 (H) (11/17/2022) Anion Gap (AG) Arterial 12 (10/30/2022) Anion Gap 8 (12/21/2022) AST 138 (H) (11/17/2022) eGFR by CKD-EPI >90 (12/21/2022) documented in this encounter Procedure Notes * Lurdes Malave APRN-CRNA - 01/10/2023 12:48 PM CDTAssociated Order(s): Peripheral IV Placement Peripheral IV Line Placement: Patient Location: OR Procedure: IV start ([id number]). Procedure Section: Skin Prep: alcohol. Orientation: right Location: foot Catheter Gauge: 20 Number of Attempts: 2. Procedure Tolerance: performed while patient under general anesthesia. Staff Section Anesthesia Provider: Ambrocio Leal II, MD, Performed the procedure * Lurdes Malave APRN-CRNA - 01/10/2023 12:47 PM CDTAssociated Order(s): ETT Placement Endotracheal Tube Placement: Patient Location: OR. Intubation Event Date/Time: 01/10/2023 12:14 PM Procedure: intubation ([id number]). Procedure Section: Sedation: under general anesthesia. Indications for Airway Management: anesthesia Procedure pretreatments used? No Induction: standard IV Patient Position: sniffing Mask Ventilation: easy. Blade Type: Milana Blade Size: 3 Laryngoscopy View: grade 1 (full cords) Intubation Adjuncts: stylet Tube: endotracheal tube Tube type: cuff - inflated Tube Size (MM): 7 Depth of Insertion (CM): 22 Measured From: lips Cuff volume (mL): 7 Cuff Inflated With: air Number of Attempts: 1. Placement Verified By: direct visualization, bilateral breath sounds, chest auscultation and CO2 monitor CXR Findings: ETT in proper place. Tube secured with: adhesive tape. Dentition unchanged? Yes Difficult Airway? No. Procedure Start Time: 01/10/2023 12:14 PM. Staff Section Anesthesia Provider: Lurdes Malave APRN-CRNA, Performed the procedure Provider #1: Ambrocio Leal II, MD. 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 -- Dispensed IK PRN 01/10/23 1443 01/10/23 1515 0.9% NaCl injection 3 mL See Hyperspace for full Linked Orders Report. -- Dispensed IK EVERY 8 HOURS 01/10/23 1443 01/10/23 1442 acetaminophen (Tylenol) tablet 650 mg -- Sent PO EVERY 6 HOURS PRN 01/10/23 1443 01/10/23 2100 baclofen (Lioresal) tablet 5 mg Note to Pharmacy: OP sig: Take 1 (one) tablet by mouth at bedtime -- Sent PO AT BEDTIME 01/10/23 1439 01/10/23 1515 bethanechol (Urecholine) tablet 25 mg Note to Pharmacy: OP sig: Take 1 (one) tablet by mouth 3 times daily -- Sent PO 3 TIMES DAILY 01/10/23 1439 01/10/23 1443 bisacodyl (Dulcolax) suppository 10 mg -- Sent RE ONCE PRN 01/10/23 1443 01/10/23 1445 chlorhexidine (Peridex) 0.12 % oral solution 15 mL -- Sent MT 2 TIMES DAILY 01/10/23 1443 01/10/23 1515 Cholecalciferol TABS 2,000 Units Note to Pharmacy: OP sig: Insert 2 (two) tablets into appropriate tube once daily -- Sent TUBE DAILY 01/10/23 1439 01/10/23 2100 cyclobenzaprine (Flexeril) tablet 5 mg -- Sent PO AT BEDTIME 01/10/23 14301/10/23 1515 gabapentin (Neurontin) capsule 300 mg Note to Pharmacy: OP sig: Take 1 (one) capsule by mouth 3 times daily -- Sent PO 3 TIMES DAILY 01/10/23 1439 01/10/23 1442 hydrALAZINE (Apresoline) injection 10 mg -- Sent IV EVERY 30 MIN PRN 01/10/23 1443 01/10/23 1442 labetalol (Normodyne; Trandate) injection 10 mg -- Sent IV EVERY 15 MIN PRN 01/10/23 1443 01/10/23 2300 levETIRAcetam (Keppra) injection 500 mg Note to Pharmacy: Check product to be reconstituted and update BUD. BUD is 24 hours for Hospira or Sagent products and 4 hours for all others. -- Verified IV EVERY 12 HOURS 01/10/23 1443 01/10/23 1443 magnesium hydroxide (Milk Of Magnesia) suspension 30 mL -- Sent PO ONCE PRN 01/10/23 1443 01/10/23 2100 metoprolol tartrate IR (Lopressor) tablet 25 mg Note to Pharmacy: OP sig: Take 1 (one) tablet by mouth 2 times daily -- Sent PO 2 TIMES DAILY 01/10/23 1439 01/10/23 1443 morphine injection 2 mg See Hyperspace for full Linked Orders Report. -- Sent IV EVERY 3 HOURS PRN 01/10/23 1443 01/10/23 1443 morphine injection 4 mg See Hyperspace for full Linked Orders Report. -- Sent IV EVERY 3 HOURS PRN 01/10/23 1443 01/10/23 1515 multiple vitamins with minerals tablet 1 tablet -- Sent PO DAILY 01/10/23 1443 01/10/23 1439 naloxone (Narcan) injection 0.2 mg -- Sent IV PRN 01/10/23 1443 01/10/23 1443 ondansetron (disintegrating) (Zofran ODT) tablet 4 mg See Hyperspace for full Linked Orders Report. -- Sent PO EVERY 6 HOURS PRN 01/10/23 1443 01/10/23 1443 ondansetron (Zofran) injection 4 mg See Hyperspace for full Linked Orders Report. -- Sent IV EVERY 6 HOURS PRN 01/10/23 1443 01/10/23 1442 oxyCODONE (immediate release) (Roxicodone) tablet 10 mg -- Verified PO EVERY 4 HOURS PRN 01/10/23 1443 01/10/23 1442 oxyCODONE-acetaminophen (Percocet) 5-325 MG tablet 1 tablet -- Verified PO EVERY 4 HOURS PRN 01/10/23 1443 01/10/23 1515 pantoprazole EC (Protonix) tablet 40 mg Note to Pharmacy: OP sig: Take 1 (one) tablet by mouth once daily -- Sent PO DAILY 01/10/23 1439 01/10/23 1515 polyethylene glycol 3350 (Miralax) packet 17 g Note to Pharmacy: OP sig: Insert 17 (seventeen) g into appropriate tube 2 times daily as needed -- Sent PO DAILY 01/10/23 1439 01/10/23 1515 polyethylene glycol 3350 (Miralax) packet 17 g -- Sent PO DAILY 01/10/23 1443 01/10/23 1515 senna (Senokot) tablet 8.6 mg -- Sent PO DAILY 01/10/23 1443 01/10/23 1443 simethicone (Mylicon) chew tablet 80 mg -- Sent PO EVERY 6 HOURS PRN 01/10/23 1443 01/10/23 1443 sodium phosphate rectal (Fleet) enema 133 mL -- Sent RE ONCE PRN 01/10/23 1443 01/10/23 1515 tamsulosin (Flomax) capsule 0.4 mg Note to Pharmacy: OP sig: Take 1 (one) capsule by mouth once daily -- Sent PO DAILY 01/10/23 1439 01/10/23 2100 verapamil SR 24hr (Verelan) capsule 120 mg Note to Pharmacy: OP sig: Take 1 (one) capsule by mouth at bedtime -- Sent PO AT BEDTIME 01/10/23 1439 Post-op Diagnosis: * 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 Allergies Allergen Reactions ??? 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 Fever Vitals: Patient Vitals for the past 3 hrs: BP Temp Pulse Resp SpO2 Pain Rating Score #1 01/10/23 1445 133/60 97.4 ??F (36.3 ??C) (!) 110 15 100 % 8 Lines, Drains, and Airways Type Details Placement Removal Enteral - 11/01/22; 1445 (Per GI note); PEG; Abdomen, Left, Upper; 24 (Per GI note) 11/01/22 1445 by Jessica Enriquez RN Peripheral IV Date: 01/10/23; Time: 1135; Orientation: Anterior, Right; Location: Forearm; Gauge: 20 Gauge; Locals: None; Tolerance: Well 01/10/23 1135 by Sylvia Ray RN ETT Date: 01/10/23; Time: 1214; Placed By: Lurdes Malave APRN-PEDIATRIC ORTHODONTIST; Vent: easy mask; Induction: Standard IV; Blade Type: Milana; Blade Size: 3; Laryngoscopy View: Grade 1 (full cords); Intubation Adjuncts: Stylet; Tube: Endotracheal Tube; Tube Type: Cuffed-inflated; Tube Size(mm): 7 MM; Depth of Insertion: 22 CM; Measured From: lips; Attempts: 1; Cuff Infated: Air; Cuff Vol(mL): 7 mL; Verified By: Direct visualization, Bilateral breath sounds, Chest Auscultation, CO2 Monitor 01/10/23 1214 by Lurdes Malave APRN-PEDIATRIC ORTHODONTIST 01/10/23 1437 by Lurdes Malave APRN-CRNA Peripheral IV Date: 01/10/23; Time: 1248; Orientation: Right; Location: Foot; Placed By: Ambrocio Leal II, MD; Gauge: 20 Gauge; Tolerance: General Anesthesia 01/10/23 1248 by Lurdes Malave APRN-CRNA Intraprocedure I/O Totals Intake NS (0.9% NaCl) 900.00 mL lactated ringers infusion 500.00 mL Total Intake 1400 mL Output Estimated Blood Loss 150 mL Total Output 150 mL Net Net Volume 1250 mL Patient Transfer Location: PACU Checklist or Protocol - The darden handoff elements that must be included in the transfer of care checklist include: 1. Identification of patient. 2. Identification of responsible practitioner (PACU nurse or advanced practitioner). 3. Discussion of pertinent medical history. 4. Discussion of the surgical/procedure course (procedure, reason for surgery, procedure performed). 5. Intraoperative anesthetic management and issue/concerns. 6. Expectations/Plans for the early post-procedure period. 7. Opportunity for questions and acknowledgement of understanding of report from the receiving PACUteam. 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 -- Dispensed IK PRN 01/10/23 1443 01/10/23 1515 0.9% NaCl injection 3 mL See Hyperspace for full Linked Orders Report. -- Dispensed IK EVERY 8 HOURS 01/10/23 1443 01/10/23 1442 acetaminophen (Tylenol) tablet 650 mg -- Sent PO EVERY 6 HOURS PRN 01/10/23 1443 01/10/23 2100 baclofen (Lioresal) tablet 5 mg Note to Pharmacy: OP sig: Take 1 (one) tablet by mouth at bedtime -- Sent PO AT BEDTIME 01/10/23 1439 01/10/23 1515 bethanechol (Urecholine) tablet 25 mg Note to Pharmacy: OP sig: Take 1 (one) tablet by mouth 3 times daily -- Sent PO 3 TIMES DAILY 01/10/23 1439 01/10/23 1443 bisacodyl (Dulcolax) suppository 10 mg -- Sent RE ONCE PRN 01/10/23 1443 01/10/23 1445 chlorhexidine (Peridex) 0.12 % oral solution 15 mL -- Sent MT 2 TIMES DAILY 01/10/23 1443 01/10/23 1515 Cholecalciferol TABS 2,000 Units Note to Pharmacy: OP sig: Insert 2 (two) tablets into appropriate tube once daily -- Sent TUBE DAILY 01/10/23 1439 01/10/23 2100 cyclobenzaprine (Flexeril) tablet 5 mg -- Sent PO AT BEDTIME 01/10/23 1439 01/10/23 1515 gabapentin (Neurontin) capsule 300 mg Note to Pharmacy: OP sig: Take 1 (one) capsule by mouth 3 times daily -- Sent PO 3 TIMES DAILY 01/10/23 1439 01/10/23 1442 hydrALAZINE (Apresoline) injection 10 mg -- Sent IV EVERY 30 MIN PRN 01/10/23 1443 01/10/23 1442 labetalol (Normodyne; Trandate) injection 10 mg -- Sent IV EVERY 15 MIN PRN 01/10/23 1443 01/10/23 2100 levETIRAcetam (Keppra) injection 500 mg Note to Pharmacy: Check product to be reconstituted and update BUD. BUD is 24 hours for Hospira or Sagent products and 4 hours for all others. -- Sent IV EVERY 12 HOURS 01/10/23 1443 01/10/23 1443 magnesium hydroxide (Milk Of Magnesia) suspension 30 mL -- Sent PO ONCE PRN 01/10/23 1443 01/10/23 2100 metoprolol tartrate IR (Lopressor) tablet 25 mg Note to Pharmacy: OP sig: Take 1 (one) tablet by mouth 2 times daily -- Sent PO 2 TIMES DAILY 01/10/23 1439 01/10/23 1443 morphine injection 2 mg See Hyperspace for full Linked Orders Report. -- Sent IV EVERY 3 HOURS PRN 01/10/23 1443 01/10/23 1443 morphine injection 4 mg See Hyperspace for full Linked Orders Report. -- Sent IV EVERY 3 HOURS PRN 01/10/23 1443 01/10/23 1515 multiple vitamins with minerals tablet 1 tablet -- Sent PO DAILY 01/10/23 1443 01/10/23 1439 naloxone (Narcan) injection 0.2 mg -- Sent IV PRN 01/10/23 1443 01/10/23 1443 ondansetron (disintegrating) (Zofran ODT) tablet 4 mg See Hyperspace for full Linked Orders Report. -- Sent PO EVERY 6 HOURS PRN 01/10/23 1443 01/10/23 1443 ondansetron (Zofran) injection 4 mg See Hyperspace for full Linked Orders Report. -- Sent IV EVERY 6 HOURS PRN 01/10/23 1443 01/10/23 1442 oxyCODONE (immediate release) (Roxicodone) tablet 10 mg -- Verified PO EVERY 4 HOURS PRN 01/10/23 1443 01/10/23 1442 oxyCODONE-acetaminophen (Percocet) 5-325 MG tablet 1 tablet -- Verified PO EVERY 4 HOURS PRN 01/10/23 1443 01/10/23 1515 pantoprazole EC (Protonix) tablet 40 mg Note to Pharmacy: OP sig: Take 1 (one) tablet by mouth once daily -- Sent PO DAILY 01/10/23 1439 01/10/23 1515 polyethylene glycol 3350 (Miralax) packet 17 g Note to Pharmacy: OP sig: Insert 17 (seventeen) g into appropriate tube 2 times daily as needed -- Sent PO DAILY 01/10/23 1439 01/10/23 1515 polyethylene glycol 3350 (Miralax) packet 17 g -- Sent PO DAILY 01/10/23 1443 01/10/23 1515 senna (Senokot) tablet 8.6 mg -- Sent PO DAILY 01/10/23 1443 01/10/23 1443 simethicone (Mylicon) chew tablet 80 mg -- Sent PO EVERY 6 HOURS PRN 01/10/23 1443 01/10/23 1443 sodium phosphate rectal (Fleet) enema 133 mL -- Sent RE ONCE PRN 01/10/23 1443 01/10/23 1515 tamsulosin (Flomax) capsule 0.4 mg Note to Pharmacy: OP sig: Take 1 (one) capsule by mouth once daily -- Sent PO DAILY 01/10/23 1439 01/10/23 2100 verapamil SR 24hr (Verelan) capsule 120 mg Note to Pharmacy: OP sig: Take 1 (one) capsule by mouth at bedtime -- Sent PO AT BEDTIME 01/10/23 1439 Post-op Diagnosis: * 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 Allergies Allergen Reactions ??? 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 Lines, Drains, and Airways Type Details Placement Removal Enteral - 11/01/22; 1445 (Per GI note); PEG; Abdomen, Left, Upper; 24 (Per GI note) 11/01/22 1445 by Jessica Enriquez RN Peripheral IV Date: 01/10/23; Time: 1135; Orientation: Anterior, Right; Location: Forearm; Gauge: 20 Gauge; Locals: None; Tolerance: Well 01/10/23 1135 by Sylvia Ray RN ETT Date: 01/10/23; Time: 1214; Placed By: Lurdes Malave APRN-[facility]; Vent: easy mask; Induction: Standard IV; Blade Type: Milana; Blade Size: 3; Laryngoscopy View: Grade 1 (full cords); Intubation Adjuncts: Stylet; Tube: Endotracheal Tube; Tube Type: Cuffed-inflated; Tube Size(mm): 7 MM; Depth of Insertion: 22 CM; Measured From: lips; Attempts: 1; Cuff Infated: Air; Cuff Vol(mL): 7 mL; Verified By: Direct visualization, Bilateral breath sounds, Chest Auscultation, CO2 Monitor 01/10/23 1214 by Lurdes Malave APRN-CRNA 01/10/23 1437 by Lurdes Malave APRN-CRNA Peripheral IV Date: 01/10/23; Time: 1248; Orientation: Right; Location: Foot; Placed By: Ambrocio Leal II, MD; Gauge: 20 Gauge; Tolerance: General Anesthesia 01/10/23 1248 by Lurdes Malave APRN-CRNA Intraprocedure I/O Totals Intake NS (0.9% NaCl) 800.00 mL lactated ringers infusion 500.00 mL Total Intake 1300 mL Output Estimated Blood Loss 150 mL Total Output 150 mL Net Net Volume 1150 mL Transport Airway: spontaneous respirations and supplemental O2 Transport Monitoring: heart rate and continuous pulse oximetry Complications: None Handoff Given? Yes AMOR Lucas documented in this encounter Plan of Treatment Not on file documented as of this encounter Procedures Procedure Name Priority Date/Time Associated Diagnosis Comments PERIPHERAL IV NOTE Routine 01/10/2023 12 :48 PM CDT ENDOTRACHEAL TUBE NOTE Routine 01/10/2023 12:47 PM CDT documented in this encounter Results * IV PLACEMENT PERFORMABLE (01/10/2023 12:48 PM CDT) Narrative Lurdes Malave APRN-CRNA - 01/10/2023 12:48 PM CDT Lurdes Malave APRN-CRNA ? 01/10/2023 12:48 PM Peripheral IV Line Placement: Patient Location: ??OR Procedure: IV start ([id number]). Procedure Section: ?? Skin Prep: alcohol. Orientation: [...] Event Date/Time: ??01/10/2023 12:14 PM Procedure: intubation ([id number]). Procedure Section: ?? Sedation: under general anesthesia. [...] 12:14 PM. Staff Section ? Anesthesia Provider: Lurdes Malave APRN-CRNA, Performed the procedure ? Provider #1: Ambrocio Leal II, MD. Ambrocio Leal II, MD GENERAL ANESTHESIA ORDERABLES documented in this encounter Visit Diagnoses Not on filedocumented in this encounter Administered Medications Inactive Administered Medications - up to 3 most recent administrations Medication Order MAR Action Action Date Dose Rate Site 0.9% NaCl infusion Intravenous, CONTINUOUS PRN, Starting on Sun01/10/23 at 1245, Until Sun01/10/23 at 1455, Anesthesia Intra-op $ New Bag/Syringe 01/10/2023 12:29 PM CDT 0.9% NaCl infusion Intravenous, CONTINUOUS PRN, Starting on Sun01/10/23 at 1221, Until Sun01/10/23 at 1455, Anesthesia Intra-op $ New Bag/Syringe 01/10/2023 12:21 PM CDT 50 mL/hr ceFAZolin (Ancef) 2,000 mg in 50 mL IVPB Intravenous, PRN, Starting on Sun01/10/23 at 1239, Until Sun01/10/23 at 1455, Anesthesia Intra-op $ Given 01/10/2023 12:39 PM CDT 2 g dexAMETHasone Sod Phosphate PF injection Intravenous, PRN, Starting on Sun01/10/23 at 1239, Until Sun01/10/23 at 1455, Anesthesia Intra-op $ Given 01/10/2023 12:39 PM CDT 4 mg ePHEDrine 50 MG/ML injection Intravenous, PRN, Starting on Sun01/10/23 at 1243, Until Sun01/10/23 at 1455, Anesthesia Intra-op $ Given 01/10/2023 2:03 PM CDT 10 mg $ Given 01/10/2023 1:22 PM CDT 10 mg $ Given 01/10/2023 12:43 PM CDT 10 mg esmolol (Brevibloc) injection Intravenous, PRN, Starting on Sun01/10/23 at 1333, Until Sun01/10/23 at 1455, Anesthesia Intra-op $ Given 01/10/2023 2:15 PM CDT 20 mg $ Given 01/10/2023 1:30 PM CDT 20 mg famotidine (Pepcid) injection Intravenous, PRN, Starting on Sun01/10/23 at 1157, Until Sun01/10/23 at 1455, Anesthesia Intra-op $ Given 01/10/2023 11:57 AM CDT 20 mg fentaNYL (PF) (Sublimaze) injection Intravenous, PRN, Starting on Sun01/10/23 at 1204, Until Sun01/10/23 at 1455, Anesthesia Intra-op $ Given 01/10/2023 1:14 PM CDT 25 mcg $ Given 01/10/2023 12:51 PM CDT 25 mcg $ Given 01/10/2023 12:12 PM CDT 100 mcg HYDROmorphone (Dilaudid) injection Intravenous, PRN, Starting on Sun01/10/23 at 1358, Until Sun01/10/23 at 1455, Anesthesia Intra-op $ Given 01/10/2023 2:28 PM CDT 0.5 mg $ Given 01/10/2023 1:51 PM CDT 0.5 mg $ Given 01/10/2023 1:31 PM CDT 0.5 mg lactated ringers infusion at 20 mL/hr, Intravenous, PRE-OP CONTINUOUS, Starting on Sun01/10/23 at 1015, Until Sun01/10/23 at 1444, Pre-op Rate Change 01/10/2023 11:57 AM CDT 20 mL/hr $ New Bag/Syringe 01/10/2023 11:41 AM CDT 20 mL /hr levETIRAcetam (Keppra) injection Intravenous, PRN, Starting on Sun01/10/23 at 1300, Until Sun01/10/23 at 1455, Anesthesia Intra-op $ Given 01/10/2023 1:00 PM CDT 1,000 mg lidocaine HCl (PF) (Xylocaine MPF) 2 % injection Intravenous, PRN, Starting on Sun01/10/23 at 1212, Until Sun01/10/23 at 1455, Anesthesia Intra-op $ Given 01/10/2023 12:12 PM CDT 100 mg magnesium sulfate injection Intravenous, PRN, Starting on Sun01/10/23 at 1305, Until Sun01/10/23 at 1455, Anesthesia Intra-op $ Given 01/10/2023 1:05 PM CDT 2 g midazolam (Versed) injection Intravenous, PRN, Starting on Sun01/10/23 at 1157, Until Sun01/10/23 at 1455, Anesthesia Intra-op $ Given 01/10/2023 11:57 AM CDT 2 mg ondansetron (Zofran) injection Intravenous, PRN, Starting on Sun01/10/23 at 1157, Until Sun01/10/23 at 1455, Anesthesia Intra-op $ Given 01/10/2023 11:57 AM CDT 4 mg phenylephrine 100 mcg/mL injection Intravenous, PRN, Starting on Sun01/10/23 at 1216, Until Sun01/10/23 at 1455, Anesthesia Intra-op $ Given 01/10/2023 12:24 PM CDT 200 mcg $ Given 01/10/2023 12:21 PM CDT 100 mcg $ Given 01/10/2023 12:16 PM CDT 200 mcg phenylephrine 100 mcg/mL injection Intracavernosal, CONTINUOUS PRN, Starting on Sun01/10/23 at 1216, Until Sun01/10/23 at 1455, Anesthesia Intra-op Rate Change 01/10/2023 1:11 PM CDT 0.2 mcg/kg/min 11.916 mL/hr Rate Change 01/10/2023 12:50 PM CDT 0.5 mcg/kg/min 29.79 m L/hr Rate Change 01/10/2023 12:24 PM CDT 0.8 mcg/kg/min 47.664 mL/hr propofol (Diprivan) injection Intravenous, PRN, Starting on Sun01/10/23 at 1212, Until Sun01/10/23 at 1455, Anesthesia Intra-op $ Given 01/10/2023 2:19 PM CDT 30 mg $ Given 01/10/2023 12:12 PM CDT 200 mg rocuronium (Zemuron) injection Intravenous, PRN, Starting on Sun01/10/23 at 1212, Until Sun01/10/23 at 1455, Anesthesia Intra-op $ Given 01/10/2023 12:12 PM CDT 60 mg documented in this encounter Care Teams Career Information Specialist Relationship Specialty Start Date End Date Jean Joy MD PCP - OBGYN 12/27/07 Jaden Thakur DO [address] [place] [id number] PCP - Attributed-[facility] 09/10/19 06/28/23 Jaden Thakur DO [address] [place] [id number] PCP - General Family Medicine Geriatric Medicine 01/05/23 Arlyn Hernandez RN Post Acute Primary Care MdManager Desktop 11/21/22 Doreen Aviles Care Coordination Specialist Care Management 11/30/22 01/18/23 documented as of this encounter
--- OUTSIDE RECORDS SUMMARY | 2024-03-19 20:34 | XMS_ITS | Encounter Summary ---
Author Organization [facility] Address [address] [place] [address] Care Team Providers Care Live In Housekeeper Nanny Name Role Phone Jean Joy MD Unavailable [phone] Yvan Booth MD Primary Care Provider [phone] Jaden Thakur DO Unavailable [phone] Arlyn Hernandez RN Unavailable [phone] Doreen Aviles Unavailable Reason for Visit * Reason Onset Date Comments Transitions Of Care 01/04/2023 Encounter Details Date Type Department Care Team (Late st Contact Info) Description 01/04/2023 Patient Outreach [facility] Medical [facility] - Care Coordination [address] [place] [id number] Doreen Aviles Transitions Of Care Social History [...] Recorded Patient Health Questionnaire-2 Score 0 11/15/2022 [facility] - Occupational [...] place to sleep or slept in a group home (including now)? No 10/19/2022 Sex and Gender [...] * Telephone Encounter - Doreen Orourke - 01/04/2023 12:02 PM CDT [facility]CS called patient to check in, patient reports patient is doing well with no concerns at this time. Pts states that patient still has not received the PT INR machine as well has not gotten any of the DME that is no longer needed picked up. [facility]CS will check in with PAC JESSY Agarwal and PAC MATTHEW Agarwal about these items. CCS will call again next week to check back in. CCS sent [employer] message to patient to supply number for [facility]. documented in this encounter Plan of Treatment Not on file documented as of this encounter Visit Diagnoses Not on filedocumented in this encounter Care Teams Live In Housekeeper Nanny Relationship Specialty Start Date End Date Jean Joy MD PCP - OBGYN 12/27/07 Yvan Booth MD [address] [place] [phone] PCP - General 11/04/09 01/04/23 Jaden Thakur DO [address] [place] [id number] PCP - Attributed-[facility] STL 09/10/19 06/28/23 Arlyn Hernandez, AMBROSE Post Acute Ux ResearcherSenior Contracts Manager 11/21/22 Doreen Aviles Care Coordination Specialist Care Management 11/30/22 01/18/23 documented as of this encounter
--- OUTSIDE RECORDS SUMMARY | 2024-03-19 20:34 | XMS_ITS | Encounter Summary ---
Author Organization [facility] Address [address] [facility] [place] [address] Care Team Providers Care Nutrition Educator Name Role Phone Jean Joy MD Unavailable [phone] Jaden Thakur DO Unavailable [phone] Jaden Thakur DO Primary Care Provider + Reason for Visit * Reason Onset Date Comments MEDICATION REFILL 03/13/2023 Encounter Details Date Type Department Care Team (Late st Contact Info) Description 03/13/2023 Refill [facility] - Neurology [address] [facility], [facility] [place] [phone] Jmi Walter MD [address] [place], [place] [id number] MEDICATION REFILL Social History Tobacco Use Types Packs/Day Years [...] file 03/2022 Overall Financial Resource Strain (CARDIA) Corinna r Date Recorded How hard is it for you to pa y for the very basics like food, housing, medical care, and heating? Not hard at all 01/10/2023 PHQ-2 Answer Date Recorded Patient Health Questionnaire-2 Score 0 11/15/2022 [facility] - Occupational Stress [...] on filedocumented in this encounter Care Teams Nutrition Educator Relationship Specialty Start Date End Date Jean Joy MD PCP - OBGYN 12/27/07 Jaden Thakur DO [address] [place] [id number] PCP - Attributed-[facility] EHP STL 09/10/19 06/28/23 Jaden Thakur DO [address] [place] [id number] PCP - General Family Medicine Geriatric Medicine 01/05/23 documented as of this encounter
--- OUTSIDE RECORDS SUMMARY | 2024-03-19 20:34 | XMS_ITS | Encounter Summary ---
Author Organization [facility] Address [address] [facility] [place] [address] Care Team Providers Care Flatware Maker Name Role Phone Jean Joy MD Unavailable [phone] Jaden Thakur DO Unavailable [phone] Arlyn Hernandez RN Unavailable Doreen Aviles Unavailable Jaden Thakur DO Primary Care Provider + Reason for Referral * Consultation (Routine) - Closed Specialty Diagnoses / Procedures Referred By Contac t Referred To Contact Cardiology Diagnoses Cerebrovascular accident (CVA), unspecified mechanism (HCC) Jim Walter MD [address] [place] [address] [facility] [address] [facility] [address] [place] [address] Referral ID Status Reason Start Date Expiration Date V isits Requested Visits Authorized [id number] Closed Specialty Services Required 01/05/2023 01/05/2024 1 1 * Consultation (Routine) - Closed Specialty Diagnoses / Procedures Referred By Contac t Referred To Contact Cardiology Diagnoses Cerebrovascular accident (CVA), unspecified mechanism (HCC) Jim Walter MD [address] [place] [address] Referral ID Status Reason Start Date Expiration Date V isits Requested Visits Authorized [id number] Closed Specialty Services Required 01/05/2023 01/05/2024 1 1 Reason for Visit * Auth/Cert (Routine) Specialty Diagnoses / Procedures Referred By Contac t Referred To Contact Diagnoses Vegetation of heart valve (HCC) Procedures ECHO SARAH Referral ID Status Reason Start Date Expiration Date Visits Re quested Visits Authorized [id number] 1 1 Encounter Details Date Type Department Care Team (Late st Contact Info) Description 01/05/2023 10:30 AM CDT Office Visit [facility] - Neurology [address] [facility] [place] [phone] Tr Michael MD [address] [facility], [facility] [address] [place] [address] Jim Walter MD [address] [place] [address] Cerebrovascular accident (CVA), unspecified mechanism (HCC) (Primary Dx) Social History Tobacco Use Types Packs/Day Years Used Date Smoking Tobacco: Former Cigarettes Q uit: 2015 Smokeless Tobacco: Never Tobacco Cessation:Counseling Given: Not [...] Recorded Patient Health Questionnaire-2 Score 0 11/15/2022 [facility] - Occupational Stress [...] money to buy more. Never true 10/20/19 23 Within the past 12 months, t [...] place to sleep or slept in a halfway (including now)? No 10/19/2022 Sex and Gender Information Value Date Recorded Sex Assigned at Not on file Gender Identity Not on file Sexual Orientation Not on file documented as of this encounter Last Filed Vital Signs Vital Sign Reading Time Taken Comments Blood Pressure 113/72 01/05/2023 10:44 AM CDT Pulse 75 01/05/2023 10:44 AM CDT Temperature - - Respiratory Rate 12 01/05/2023 10:44 AM CDT Oxygen Saturation - - Inhaled Oxygen Concentration - - Weight - - Height - - Body Mass Index - - documented in this encounter Functional Status Functional Status Response Date of Assess ment Is person deaf or have serious hearing difficult y? No 01/05/2023 Is person blind or have serious difficulty seein g? No 01/05/2023 Does person have serious dif ficulty walking/climbing stairs? Yes 01/05/2023 Does person have difficulty dressing/bathing? Ye s 01/05/2023 Does person have difficulty doing errands alone? Yes 01/05/2023 Cognitive Status Response Date of Assessm ent Does person have difficulty concentrating/remembering/making decisions? No 01/05/2023 documented as of this encounter Patient Instructions * Patient Instructions* Sosa Degroot MD - 01/05/2023 11:44 AM CDT Dear Consuelo Darby, Today you saw Dr. Sosa Degroot and Dr. Jim Walter at the [facility]. During today's visit we discussed: recent stroke The plan going forward is: - referral placed to Cardiology - referral placed for CTS - Will contact JESSY (Rayna) We would highly recommend using My Chart to communicate with us and to have access to your medical records. Instructions on how to sign up for My Chart can be found at: [email or web address] Select the [facility] and then select [facility]. If you have any questions regarding the plan discussed in clinic today please call Rajni Randall [facility] office phone . Sincerely, Sosa Degroot MD, PhD Jim Walter MD Vascular & Interventional Neurology [facility] documented in this encounter Progress Notes * Sosa Degroot MD - 01/05/2023 11:44 AM CDT Images from the original note were not included. Vascular Neurology Clinic Visit Note Date of Encounter: 01/05/2023 Chief Complaint: right fronto-temporal ischemic stroke HPI: Consuelo Olivalubna is a 42 year old woman who presented to [facility] ED with right MCA syndrome and was found to have R frontotemporal hypodensity and R MCA-distal M1 occlusion on CTA. She is s/p IV TNK, MT with TICI 2b recanalization on 10/19 and R decompressive hemicrani on 10/20. MRI brain revealed scattered cortical R hemisphere infarct and HI1 in stroke bed. 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 Infectious work-up negative and she was started Warfarin. Since discharge from rehab she has improved speech output and strength on right arm and leg. Patient and her had expressed considerable frustration with her post-strokecare: SW, returning some DMEs and routine labs and follow-up appointments. Review of Systems: A 10-pt ROS was performed. Pertinent negatives include no speech difficulty, no visual disturbances, no vertigo, no weakness, no sensory disturbance, and no difficulty with gait. All other systems were reviewed and negative. Allergies: Allergies Allergen Reactions ??? 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 Fever Home Medications: Current Outpatient Medications Medication Sig ??? baclofen (Lioresal) 5 MG TABS Take 1 (one) tablet by mouth at bedtime ??? bethanechol (Urecholine) 25 MG tablet Take 1 (one) tablet by mouth 3 times daily ??? Cetirizine HCl (ZYRTEC PO) Take 10 mg by mouth once daily ??? Cholecalciferol 25 MCG (1000 UT) Insert 2 (two) tablets into appropriate tube once daily ??? cyclobenzaprine (Flexeril) 5 MG tablet ??? Enoxaparin Sodium (LOVENOX IJ) ??? gabapentin (Neurontin) 300 MG capsule Take 1 (one) capsule by mouth 3 times daily ??? HYDROcodone-acetaminophen ([place]) 5-325 MG tablet TAKE 1 TABLET BY MOUTH EVERY 6 HOURS NEEDED FOR PAIN OR ACUTE PAIN ??? hydrOXYzine HCl (Atarax) 25 MG tablet Take 1 (one) tablet by mouth every 6 hours as needed ??? metoprolol tartrate IR (Lopressor) 25 MG tablet Take 1 (one) tablet by mouth 2 times daily ??? pantoprazole EC (Protonix) 40 MG tablet Take 1 (one) tablet by mouth once daily ??? polyethylene glycol 3350 (Miralax) 17 g packet Insert 17 (seventeen) g into appropriate tube 2 times daily as needed ??? tamsulosin (Flomax) 0.4 MG capsule Take 1 (one) capsule by mouth once daily ??? verapamil SR 24hr (Verelan) 120 MG capsule Take 1 (one) capsule by mouth at bedtime ??? warfarin (Coumadin) 1 MG tablet Take 3.5 (three and one-half) tablets by mouth once daily (Patient not taking: Reported on 01/05/2023) ??? warfarin (Coumadin) 5 MG tablet Take 1 (one) tablet by mouth once daily Please prescribe warfarin based on pharmacy orders and bridge with enoxaparin; INR goal 2-3 Reasons: Blood Vessel Obstruction by Foreign Substance or Clot (Patient not taking: Reported on 01/05/2023) No current facility-administered medications for this visit. PMH: Past Medical History: Diagnosis Date ??? Abdominal pain, right upper quadrant ??? Anemia ??? CVA (cerebral vascular accident) (CMS/HCC) ??? Essential hypertension ??? GERD (gastroesophageal reflux disease) ??? History of hypertension gestational hypertension Family History: Family History Problem Relation Name Age of Onset ??? Cancer Maternal Grandfather Lung ??? Diabetes Maternal Grandfather ??? Diabetes Maternal Grandmother ??? Hypertension Mother ??? Thyroid Disease Mother Social History: Social History Socioeconomic History ??? Marital status: Spouse name: Not on file ??? Number of children: Not on file ??? Years of education: Not on file ??? Highest education level: Not on file Occupational History ??? 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 Smoking status: Former Packs/day: .5 Types: Cigarettes Quit date: 2015 Years since quittin.8 ??? Smokeless tobacco: Never Vaping Use ??? Vaping Use: Never used Substance and Sexual Activity ??? Alcohol use: No Alcohol/week: 0.0 - 1.7 standard drinks of alcohol Comment: Occasional ??? Drug use: No ??? Sexual activity: Yes Partners: Male control/protection: Pill Other Topics Concern ??? Special Diet No Social History Narrative ??? Not on file Social Determinants of Health Financial Resource Strain: Low Risk (10/19/2022) Overall Financial Resource Strain (CARDIA) ??? Difficulty of Paying Living Expenses: Not very hard Food Insecurity: No Food Insecurity (10/19/2022) Hunger Vital Sign ??? Worried About Running Out of Food in the Last Year: Never true ??? Ran Out of Food in the Last Year: Never true Transportation Needs: No Transportation Needs (10/19/2022) PRAPARE - Transportation ??? Lack of Transportation (Medical): No ??? Lack of Transportation (Non-Medical): No Stress: No Stress Concern Present (10/19/2022) [facility] - Occupational Stress Questionnaire ??? Feeling of Stress : Only a little Housing Stability: Low Risk (10/19/2022) Housing Stability Vital Sign ??? Unable to Pay for Housing in the Last Year: No ??? Number of Places Lived in the Last Year: 1 ??? Unstable Housing in the Last Year: No Objective: Vitals: 01/05/23 1044 BP: 113/72 Pulse: 75 Resp: 12 Neurological Examination: - Mental status: Patient is alert and oriented to time, place, person and situation. - Speech: Fluent, with normal naming, comprehension, articulation and repetition - CN II-XII: R UMN facial palsy; s/p R hemicrani - Motor: Normal tone and bulk. Anti-graviiy in upper extremities - Coordination/ fine movement: mild finger to nose - Gait: wheelchair Assessment: Consuelo Darby is a 42 year old woman with right MCA syndrome involving the R frontotemporal hypodensity d/t R MCA-distal M1 occlusion for which underwent TNK, MT with TICI 2b recanalization on 10/19 and R decompressive hemicrani on 10/20. 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 Infectious work-up negative and she was started Warfarin. She has completed rehab she has improvement in speech and strength on right arm and leg but will benefit from ongoing PT/OT. Patient and her had expressed considerable frustration with her post-stroke care with follow-up appointments and blood work and will benefit from SW assistance. She is pending right cranioplasty. Plan: - SW assistance provided in clinic - Ref to Cardiology [facility] - AMB REFERRAL TO CARDIOTHORACIC SURGEON; Future - pending repeat SARAH today - continue with Warfarin - follow -up with PCP RTC: as needed Patient was seen and discussed with staff vascular neurologist, Dr. Mitali Walter M.D. Sosa Degroot MD, PhD Vascular and Interventional Neurology Fellow Associated attestation - Jim Walter MD - 01/08/2023 9:07 AM CDT I saw and examined the patient with the Fellow. I have verified all details of the Fellow's note and agree with the Fellow's documentation with additions and modifications as listed below. I personally participated in reviewing the chart, review of tests, obtaining and/or reviewing the separately obtained history, performing a medically necessary and appropriate examination and evaluation, counseling and educating the patient/family/caregiver, ordering medications, tests, or procedures, documenting in the patient record, and communicating results to the patient/family/caregiver. I carried out a separate interpretation of all neurovascular studies and discussed them with the patient in front of a screen with the relevant images displayed. The findings are suggestive of a higher than normal risk of cerebrovascular complications and disability. This was outlined in detail to the patient. The cranioplasty has not been done yet and she is worried that the results of cardiac imaging mightdelay this. The SARAH is schedule for today and we will coordinate with her Cardiothoracic and Neurosurgical teams. Jim Walter MD documented in this encounter Plan of Treatment Scheduled Referrals Name Type Priority Associated Diagnoses Order Schedule Ref to Cardiology [facility] Outpatient Referral Routine Cerebrovascular accident (CVA), unspecified mechanism (HCC) Ordered: 01/05/2023 AMB REFERRAL TO CARDIOTHORACIC SURGEON Outpatient Referral Routine Cerebrovascular accident (CVA), unspecified mechanism (HCC) 1 Occurrences starting 01/05/2023 until 01/06/2024 documented as of this encounter Visit Diagnoses Diagnosis Cerebrovascular accident (CVA), unspecified mechanism (HCC)- Primary documented in this encounter Care Teams Flatware Maker Relationship Specialty Start Date End Date Jean Joy MD PCP - OBGYN 12/27/07 Jaden Thakur DO [address] [place] [id number] PCP - Attributed-[facility] EHP STL 09/10/19 06/28/23 Jaden Thakur DO [address] [place] [id number] PCP - General Family Medicine Geriatric Medicine 01/05/23 Arlyn Hernandez RN Post Acute Claim Processing SpecialistCollections Curator 11/21/22 Doreen Aviles Care Coordination Specialist Care Management 11/30/22 01/18/23 documented as of this encounter
--- OUTSIDE RECORDS SUMMARY | 2024-03-19 20:34 | XMS_ITS | Encounter Summary ---
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 [place] [address] Jazz Martin MD [address] [place] [address] [address] [place] [address] Cerebrovascular accident (CVA), unspecified mechanism (HCC) (Primary Dx) Social History Tobacco Use Types Packs/Day Years Used Date Smoking Tobacco: Former Cigarettes Q uit: 2015 Smokeless Tobacco: Never Tobacco Cessation:Counseling Given: No Alcohol Use Standard Drinks/Week Comments No 0 [...] Recorded Patient Health Questionnaire-2 Score 0 11/15/2022 [facility] - [...] place to sleep or slept in a penitentiary (including now)? 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 Inhaled Oxygen Concentration - - Weight 91.2 kg (201 lb) 04/05/2023 10:21 AM 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 Height 162.6 cm (5' 4 ) 04/05/2023 10:21 AM 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 Body Mass Index 34.5 04/05/2023 10:21 AM 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 documented in this encounter Functional Status Functional [...] No 01/10/2023 documented as of this encounter Patient Instructions * Patient Instructions* Laura Patel APRN-CNP - 04/05/2023 10:41 AM 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 Dr Martin will call you with a plan of care For any questions please call Lynette [phone] [employer] UTILITY WORKER documented in this encounter Progress Notes * Laura Patel APRN-CNP - 04/05/2023 9:55 AM CST Neurosurgery Clinic Note Date: 04/05/2023 Time: 9:55 AM History of Present Illness Consuelo Darby is a 42 year old female female s/p cranioplasty with [place] bone with Dr. Martin on 01/10/23 following a decompressive craniectomy for 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 Her incision had healed without concern for infection. She presents today for routine follow up and repeat imaging. No acute concerns, denies persistent headache, seizure. Review of Systems Cardiac-nil Resp-nil GI-nil -nil Exam BP 103/71 Pulse 78 Temp 97.7 ??F (36.5 ??C) Ht 1.626 m (5' 4 ) Wt 91.2 kg (201 lb) SpO2 95% Neuro: alert, oriented x 3 (name, place date), speech clear, fluent, ou4r, 5/5 strength on the right, left hemiplegia, sensation intact with light touch Imaging CT head, decreased seroma/pseudomeningocele A/P Consuelo Darby is a 42 year old female s/p cranioplasty with [place] bone. 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 Laura Patel, SENIOR HR GENERALIST-SHORE WORKING SUPERVISOR 9:55 AM 04/05/2023 Allergies as of 04/05/2023 - Reviewed 03/28/2023 Allergen Reaction Noted ??? Latex Rash 12/27/2007 ??? Vancomycin Fever 12/21/2022 Current Outpatient Medications on File Prior to Visit Medication Sig Dispense Refill ??? baclofen (Lioresal) 5 MG TABS Take 1 (one) tablet by mouth at bedtime PLEASE REQUEST ALL FUTUREREFILLS OF THIS MEDICATION FROM YOUR PRIMARY CARE DOCTOR. 90 tablet 1 ??? bethanechol (Urecholine) 25 MG tablet Take 1 (one) tablet by mouth 3 times daily ??? Cetirizine HCl (ZYRTEC PO) Take 10 mg by mouth once daily ??? Cholecalciferol 25 MCG (1000 UT) Insert 2 (two) tablets into appropriate tube once daily ??? cyclobenzaprine (Flexeril) 5 MG tablet ??? diclofenac sodium (Voltaren) 1 % gel Apply 2 (two) g to affected area 4 times daily 100 g 5 ??? DULoxetine (Cymbalta) 60 MG capsule ??? fluconazole (Diflucan) 150 MG tablet ??? gabapentin (Neurontin) 300 MG capsule Take 1 (one) capsule by mouth 3 times daily PLEASE REQUEST ALL FUTURE REFILLS OF THIS MEDICATION FROM YOUR PRIMARY CARE DOCTOR. 270 capsule 1 ??? HYDROcodone-acetaminophen (Preston) 5-325 MG tablet ??? hydrOXYzine HCl (Atarax) 25 MG tablet Take 1 (one) tablet by mouth every 6 hours as needed ??? levETIRAcetam (Keppra) 500 MG tablet TAKE 1 TABLET BY MOUTH TWICE DAILY 60 tablet 5 ??? metoprolol tartrate IR (Lopressor) 25 MG tablet Take 1 (one) tablet by mouth 2 times daily ??? nitrofurantoin monohyd macro crystals (Macrobid) 100 MG capsule ??? oxyCODONE, immediate release, (Roxicodone) 5 MG tablet Take 1 (one) tablet by mouth every 4 hours as needed 56 tablet 0 ??? pantoprazole EC (Protonix) 40 MG tablet [...] 1 (one) capsule by mouth at bedtime No current facility-administered medications on file prior to visit. Past Medical History: Diagnosis Date ??? Abdominal pain, right upper quadrant ??? Anemia ??? CVA (cerebral vascular accident) (CMS-HCC) ??? Essential hypertension ??? GERD (gastroesophageal reflux disease) ??? 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 History of hypertension gestational hypertension Past Surgical History: Procedure Laterality Date ??? Section ??? Section 03/01/2016 SECTION REPEAT ??? Cholecystectomy ??? Cholecystectomy, Laparoscopic 02/22/2012 N/A; LAPAROSCOPIC CHOLECYSTECTOMY SINGLE INCISION ??? COLONOSCOPY ??? COLONOSCOPY N/A 08/25/2021 HYPERPLASTIC, REPEAT 5 YEARS, [facility] ??? COLONOSCOPY WITH POLYPECTOMY N/A 08/25/2021 N/A; COLONOSCOPY REMOVAL OR ABLATION TUMOR/POLYP/LESION (ANY METHOD) ??? CRANIECTOMY Right 10/20/2022 Right; RIGHT DECOMPRESSIVE HEMICRANIECTOMY, POSS ICP MONITOR, POSS EVD ??? CRANIOPLASTY Right 01/10/2023 Right; right cranioplasty, replacement of [place] bone ??? Embolectomy Right 10/30/2022 Right; RIGHT ILEO femoral thrombectomy VIA CUTDOWN. REPAIR OF FEMORAL ARTERY WITH PATCH. ANGIOGRAM ??? ENDOSCOPY, UPPER N/A 2022 N/A; ESOPHAGOGASTRODUODENOSCOPY (EGD) DIAGNOSTIC with PEG Placement ??? ENDOSCOPY, UPPER N/A 11/10/2022 N/A; EGD, POSS. EX-LAP LEVEL 3 @ 1500 Family History Problem Relation Name Age of Onset ??? Hypertension Mother ??? Thyroid Disease Mother ??? Diabetes Maternal Grandmother ??? Cancer - Breast Maternal Aunt ??? Cancer Maternal Grandfather Lung ??? Diabetes Maternal Grandfather Social History Socioeconomic History ??? Marital status: Spouse name: Not on file ??? Number of children: Not on file ??? Years of education: Not on file ??? Highest education level: Not on file Occupational History ??? 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 Smoking status: Former Packs/day: .5 Types: Cigarettes Quit date: 2015 Years since quittin.0 ??? Smokeless tobacco: Never Vaping Use ??? [...] of Health Financial Resource Strain: Low Risk (01/10/2023) Overall Financial Resource Strain (CARDIA) ??? Difficulty of Paying Living Expenses: Not hard at all Food Insecurity: No Food Insecurity (01/10/2023) Hunger Vital Sign ??? Worried About Running Out of Food in the Last Year: Never true ??? Ran Out of Food in the Last Year: Never true Transportation Needs: No Transportation Needs (01/10/2023) PRAPARE - Transportation ??? Lack of Transportation (Medical): No ??? Lack of Transportation (Non-Medical): No Stress: No Stress Concern Present (01/10/2023) [facility] - Occupational Stress Questionnaire ??? Feeling of Stress : Only a little Housing Stability: Low Risk (01/10/2023) Housing Stability Vital Sign ??? Unable to Pay for Housing in the Last Year: No ??? Number of Places Lived in the Last Year: 1 ??? 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 (CMS-HCC) Anemia Hepatocellular injury Acquired skull defect Common femoral artery injury, right, subsequent encounter [employer] UTILITY WORKER documented in this encounter Plan of Treatment Not on file documented as of this encounter Visit Diagnoses Diagnosis Cerebrovascular accident (CVA), unspecified mechanism (HCC)- Primary documented in this encounter Care Teams Qlikview Developer Relationship Specialty Start Date End Date Jean Joy MD PCP - OBGYN 12/27/07 Jaden Thakur DO [address] [place] [address] PCP - Attributed-[facility] 09/10/19 06/28/23 Jaden Thakur DO [address] [place] [address] PCP - General Family Medicine Geriatric Medicine 01/05/23 documented as of this encounter
--- OUTSIDE RECORDS SUMMARY | 2024-03-19 20:34 | XMS_ITS | Encounter Summary ---
Author Organization [facility] Address [address] [place] [address] Care Team Providers Care Gluing Pressman Name Role Phone Jean Joy MD Unavailable [phone] Jaden Thakur DO Unavailable [phone] Jaden Thakur DO Primary Care Provider + Reason for Visit * Reason Onset Date Comments Question 04/17/2023 Encounter Details Date Type Department Care Team (Late st Contact Info) Description 04/17/2023 Telephone [facility] - Orthopedics [address] [place] [phone] Natalee Montano RN Question Social History Tobacco Use Types Packs/Day Years [...] Recorded Patient Health Questionnaire-2 Score 0 11/15/2022 [facility] - Occupational Stress Questionnaire Answer Date [...] slept in a fci (including now)? No 01/10/2023 Sex and Gender [...] encounter Miscellaneous Notes * Telephone Encounter - MontanoNatalee gray RN - 04/17/2023 2:04 PM CST This RN returned call to [phone] for this patient. The # is not in service. 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
--- OUTSIDE RECORDS SUMMARY | 2024-03-19 20:34 | XMS_ITS | Encounter Summary ---
Author Organization [facility] Address [address] [place] [address] Care Team Providers Care Sleeping Car Porter Name Role Phone Jean Joy MD Unavailable [phone] Jaden Thakur DO Unavailable [phone] Arlyn Hernandez RN Unavailable Doreen Aviles Unavailable Jaden Thakur DO Primary Care Provider + Reason for Referral * Consultation (Routine) - Closed Specialty Diagnoses / Procedures Referred By Jimena muller Referred To Contact Diagnoses Acquired skull defect Lety Scott APRN-CNP [address] [place] [address] Referral ID Status Reason Start Date Expiration Date V isits Requested Visits Authorized [id number] Closed Specialty Services Required 01/11/2023 01/11/2024 1 1 Reason for Visit * Auth/Cert (Routine) Specialty Diagnoses / Procedures Referred By Jimena muller Referred To Contact Diagnoses Acquired skull defect acquired skull defect Procedures SD REPAIR SKULL DEFECT,>5CM CRANIOPLASTY Referral ID Status Reason Start Date Expiration Date Visits Re quested Visits Authorized [id number] 1 1 Encounter Details Date Type Department Care Team (Latest Contact Info) Description 01/10/2023 9:50 AM CDT - 01/11/2023 4:27 PM CDT Hospital Encounter [facility] ICU [address] [place] [id number] Jazz Martin MD [address] [facility] 2L [place] [address] Surgery General Discharge Disposition: Home or Self Care Social [...] Recorded Patient Health Questionnaire-2 Score 0 11/15/2022 [facility] [place] [facility] Occupat ional Health - Occupational Stress [...] place to sleep or slept in a assisted (including now)? No 01/10/2023 Sex and Gender Information Value Date Recorded Sex Assigned at Not on file Gender Identity Not on file Sexual Orientation Not on file documented as of this encounter Last Filed Vital Signs Vital Sign Reading Time Taken Comments Blood Pressure 131/78 01/11/2023 12:00 PM CDT Pulse 78 01/11/2023 12:00 PM CDT Temperature 36.7 ??C (98 ??F) 01/11/2023 8:00 AM CDT Respiratory Rate 14 01/11/2023 12:00 PM CDT Oxygen Saturation 94% 01/11/2023 12:00 PM CDT Inhaled Oxygen Concentration - - Weight 99.3 kg (219 lb) 01/10/2023 11:30 AM CDT Height 162.6 cm (5' 4 ) 01/10/2023 10:44 AM CDT Body Mass Index 37.59 01/10/2023 10:44 AM CDT documented in this encounter Functional Status Functional [...] No 01/10/2023 documented as of this encounter Discharge Summaries * Lety Scott, AMANDA-WARDSPERSON - 01/11/2023 2:27 PM CDT Neurosurgery Discharge Summary Attending Physician:Jazz Martin MD ([facility] Patient Name:Consuelo Darby Date of : 1980 Admit date: 01/10/2023 Discharge date:01/11/2023 Admitting Physician: Jazz Martin MD Admission Diagnosis: Right sided cranioplasty for skull defect >??5 cm with [place] bone flap replacement and??titanium??plates/screws??(Synthes MaxilloFacial) Discharge Diagnosis:Right sided cranioplasty for skull defect >??5 cm with [place] bone flap replacement and??titanium??plates/screws??(Synthes MaxilloFacial) Past Medical/Surgical History: Past Medical History: Diagnosis Date ??? Abdominal pain, right upper quadrant ??? Anemia ??? CVA (cerebral vascular accident) (CMS/HCC) ??? Essential hypertension ??? GERD (gastroesophageal reflux disease) ??? History of hypertension gestational hypertension Past [...] Right 01/10/2023 Right; right cranioplasty, replacement of [place] bone ??? Embolectomy Right 10/30/2022 Right; RIGHT ILEO femoral thrombectomy VIA CUTDOWN. REPAIR OF FEMORAL ARTERY WITH PATCH. ANGIOGRAM ??? ENDOSCOPY, UPPER N/A 2022 N/A; ESOPHAGOGASTRODUODENOSCOPY (EGD) DIAGNOSTIC with PEG Placement ??? ENDOSCOPY, UPPER N/A 11/10/2022 N/A; EGD, POSS. EX-LAP LEVEL 3 @ 1500 Hospital Course: 42 yo woman admitted for Right sided cranioplasty for skull defect >??5 cm with [place] bone flapreplacement and??titanium??plates/screws??(Synthes MaxilloFacial). Tolerated the procedure well andwas monitored on the floor post operatively for one day. She was discharged to home on PoD 1 in stable condition. Patient Vitals for the past 48 hrs: Temp Pulse Resp BP SpO2 01/11/23 1200 -- 78 14 131/78 94 % 01/11/23 0800 98 ??F (36.7 ??C) 91 11 139/76 92 % 01/11/23 0700 -- 89 24 129/69 93 % 01/11/23 0600 -- 80 27 126/63 92 % 01/11/23 0500 -- 78 26 126/69 93 % 01/11/23 0400 98.1 ??F (36.7 ??C) 79 13 125/74 92 % 01/11/23 0300 -- 84 16 126/79 95 % 01/11/23 0200 -- 81 14 122/67 91 % 01/11/23 0100 -- 83 24 111/59 91 % 01/11/23 0000 98.4 ??F (36.9 ??C) 86 11 118/65 92 % 01/10/23 2300 -- 92 12 116/64 91 % 01/10/23 2200 -- 102 14 122/74 92 % 01/10/231 -- (!) 110 -- 121/69 -- 01/10/23 2100 -- 107 13 121/69 92 % 01/10/23 2000 97.8 ??F (36.6 ??C) 101 18 122/66 92 % 01/10/23 1900 97.8 ??F (36.6 ??C) (!) 112 13 123/71 92 % 01/10/23 1800 -- 105 12 122/69 92 % 01/10/23 1700 -- 105 13 126/76 91 % 01/10/23 1600 -- 105 11 121/74 92 % 01/10/23 1544 98.3 ??F (36.8 ??C) (!) 110 10 122/71 92 % 01/10/23 1530 -- 106 11 125/73 94 % 01/10/23 1520 -- 102 11 125/59 93 % 01/10/23 1515 -- (!) 117 13 125/65 95 % 01/10/23 1510 -- 105 11 120/66 99 % 01/10/23 1505 -- 103 11 117/65 99 % 01/10/23 1500 -- 108 9 123/47 98 % 01/10/23 1455 -- (!) 110 (!) 6 -- 99 % 01/10/23 1450 -- 95 12 -- 99 % 01/10/23 1445 97.4 ??F (36.3 ??C) (!) 110 15 133/60 100 % 01/10/23 1121 -- 74 13 120/75 98 % 01/10/23 1105 97.9 ??F (36.6 ??C) 73 15 131/86 100 % Diagnostic Studies See hospital course Results for orders placed or performed during the hospital encounter of 01/10/23 (from the past 48 hour(s)) HCG URINE QUAL POCT NOTIFICATION Result Value Ref Range Comment Notification Label Only - See Separate Report HCG URINE QUALITATIVE - POCT (IP) INTERFACED Result Value Ref Range HCG Qual Urine Negative Negative PT-INR [facility] Result Value Ref Range PT 11.9 (L) 12.1 - 14.8 Seconds INR 0.9 See Comment TYPE + SCREEN PANEL Result Value Ref Range Antibody Screen NEG ABO Rh B POS CBC W AUTO DIFFERENTIAL Result Value Ref Range WBC 9.0 3.5 - 10.5 10??3/uL RBC 4.99 3.80 - 5.20 10??6/uL Hemoglobin 14.7 12.0 - 15.6 g/dL Hematocrit 45.6 (H) 35.0 - 45.0 % MCV 91.4 80.7 - 98.3 fL MCH 29.5 26.7 - 34.0 pg MCHC 32.2 30.8 - 35.9 g/dL RDW-SD 52.7 (H) 36.0 - 50.0 fL RDW-CV 15.8 (H) 11.2 - 14.8 % Platelet Count 320 150 - 400 10??3/uL MPV 10.1 9.4 - 12.9 fL nRBC Absolute 0.00 0 10??3/uL nRBC Auto 0.0 0 /100 WBC Neutrophils % 70.2 (H) 35.0 - 70.0 % Lymphocytes % 21.9 20.0 - 43.0 % Monocytes % 6.6 5.0 - 13.0 % Eosinophils % 0.6 0.0 - 6.0 % Basophil % 0.4 0.0 - 2.0 % Neutrophils Absolute 6.33 1.60 - 7.00 10??3/uL Lymphocyte Absolute 1.98 1.10 - 3.90 10??3/uL Monocytes Absolute 0.60 0.26 - 1.07 10??3/uL Eosinophils Absolute 0.05 0.00 - 0.47 10??3/uL Basophils Absolute 0.04 0.00 - 0.08 10??3/uL Immature Granulocytes % 0.3 0.0 - 1.0 % Immature Granulocytes Absolute 0.03 PTT [facility] Result Value Ref Range APTT 22.2 (L) 23.0 - 38.4 Seconds BASIC METABOLIC PANEL (CALCIUM TOTAL) Result Value Ref Range BUN 10 7 - 26 mg/dL Creatinine 0.46 (L) 0.56 - 0.96 mg/dL Sodium 139 136 - 145 mmol/L Potassium 4.1 3.5 - 4.5 mmol/L Chloride 107 98 - 107 mmol/L CO2 24 22 - 29 mmol/L Glucose 133 (H) 70 - 115 mg/dL Calcium 8.8 8.4 - 10.2 mg/dL Anion Gap 8 6 - 16 BUN/Creatinine Ratio 22 7 - 23 Osmolality Calculated 289 275 - 295 mOsm/kg eGFR by CKD-EPI >90 >=90 mL/min/1.73 m2 CBC W AUTO DIFFERENTIAL Result Value Ref Range WBC 10.0 3.5 - 10.5 10??3/uL RBC 3.75 (L) 3.80 - 5.20 10??6/uL Hemoglobin 10.8 (L) 12.0 - 15.6 g/dL Hematocrit 34.2 (L) 35.0 - 45.0 % MCV 91.2 80.7 - 98.3 fL MCH 28.8 26.7 - 34.0 pg MCHC 31.6 30.8 - 35.9 g/dL RDW-SD 52.9 (H) 36.0 - 50.0 fL RDW-CV 15.8 (H) 11.2 - 14.8 % Platelet Count 298 150 - 400 10??3/uL MPV 10.0 9.4 - 12.9 fL nRBC Absolute 0.00 0 10??3/uL nRBC Auto 0.0 0 /100 WBC Neutrophils % 81.5 (H) 35.0 - 70.0 % Lymphocytes % 10.7 (L) 20.0 - 43.0 % Monocytes % 7.2 5.0 - 13.0 % Eosinophils % 0.0 0.0 - 6.0 % Basophil % 0.3 0.0 - 2.0 % Neutrophils Absolute 8.17 (H) 1.60 - 7.00 10??3/uL Lymphocyte Absolute 1.07 (L) 1.10 - 3.90 10??3/uL Monocytes Absolute 0.72 0.26 - 1.07 10??3/uL Eosinophils Absolute 0.00 0.00 - 0.47 10??3/uL Basophils Absolute 0.03 0.00 - 0.08 10??3/uL Immature Granulocytes % 0.3 0.0 - 1.0 % Immature Granulocytes Absolute 0.03 Treatments See hospital course Procedures See hospital course Consults None IP CONSULT TO ROAD MECHANIC Condition at discharge: good Disposition: Home Patient Instructions Current Discharge Medication List START taking these medications Instructions Authorizing Provider levETIRAcetam 500 MG tablet Commonly known as: Keppra Quantity Dispensed: 60 tablet Take 1 (one) tablet by mouth 2 times daily Lety Scott oxyCODONE (immediate release) 5 MG tablet Commonly known as: Roxicodone Quantity Dispensed: 56 tablet Take 1 (one) tablet by mouth every 4 hours as needed Valdez Rodriguez CONTINUE taking these medications which have NOT CHANGED Instructions Authorizing Provider baclofen 5 MG Tabs Commonly known as: Lioresal Take 1 (one) tablet by mouth at bedtime bethanechol 25 MG tablet Commonly known as: Urecholine Take 1 (one) tablet by mouth 3 times daily Cholecalciferol 25 MCG (1000 UT) Insert 2 (two) tablets into appropriate tube once daily cyclobenzaprine 5 MG tablet Commonly known as: Flexeril gabapentin 300 MG capsule Commonly known as: Neurontin Take 1 (one) capsule by mouth 3 times daily hydrOXYzine HCl 25 MG tablet Commonly known as: Atarax Take 1 (one) tablet by mouth every 6 hours as needed metoprolol tartrate IR 25 MG tablet Commonly known as: Lopressor Take 1 (one) tablet by mouth 2 times daily pantoprazole EC 40 MG tablet Commonly known as: Protonix Take 1 (one) tablet by mouth once daily polyethylene glycol 3350 17 g packet Commonly known as: Miralax Insert 17 (seventeen) g into appropriate tube 2 times daily as needed tamsulosin 0.4 MG capsule Commonly known as: Flomax Take 1 (one) capsule by mouth once daily verapamil SR 24hr 120 MG capsule Commonly known as: Verelan Take 1 (one) capsule by mouth at bedtime ZYRTEC PO Take 10 mg by mouth once daily STOP taking these medications HYDROcodone-acetaminophen 5-325 MG tablet Commonly known as: Donie Discharge Procedure Orders Why you were hospitalized Order Specific Question Answer Comments Your discharge diagnosis is: Acquired skull defect [5464310] No special diet needed Resume your normal home diet as tolerated. Activity as tolerated Take rest periods as often as you need to avoid getting overly tired. Light activity Limit yourself to light, quiet activities until your follow up visit. This includes any heavy housework or yardwork. Walking instructions -- Begin by walking short distances, and increasing your daily activity as you are able.-- Be sure to stop and rest if you feel tired. No heavy lifting Do not lift anything over 20 pounds until your follow up visit. Shower with incision uncovered You may shower with your incision open to air 3 days after surgery. Incision care -- Wash your incision with mild soap and water once a day when you shower, but do not scrub. -- Pat dry with a clean towel. -- Do not put any lotions or ointments on or near your incision. When to call your provider Call Dr. Yann Pena at [phone] if you have questions or concerns, or for any of thefollowing issues: -- temperature higher than 101.5 F -- if you have clear, watery drainage from your nose, ears, or incision -- severe headache that gets worse or does not get better after taking your pain medication(s) as directed. It is normal to have mild to moderate headaches for up to two weeks after your surgery. -- if you cannot urinate for 6-8 hours after your surgery or if you become uncomfortable -- changes in mental status (confusion, disorientation, or difficulty staying awake) -- if you have new weakness, changes in your vision, or a hard time speaking or swallowing -- nausea or vomiting or cannot eat or drink -- if your incision or IV site looks infected (red, swollen, warm to the touch, or non-clear, foul-smelling drainage) Follow up with Primary Care Provider (PCP) Our records show your Primary Care Provider (PCP) is Jaden Thakur DO. Additional Scheduling Instructions: Readmission Risk Score: 23. 0-20 = Low/Moderate Risk - Follow up within 14 days 21-100 = High Risk - Follow up within 5 days Order Specific Question Answer Comments Follow Up Instructions for Patient: Other (See Comment) Please call to make a follow up appointmentin clinic as needed after hospital discharge No anticoagulants (blood-thinning medications) Until your follow up visit. -- Examples of blood thinning medications include, but are not limited to, Coumadin, warfarin, Plavix, Lovenox, Aggrenox, Xarelto and Pradaxa. -- Please ask if you are unsure about any medications. Tnzr-wub-[id number] medication Take over the counter stool softener for relief of constipation Follow up with provider Additional Scheduling Instructions: Readmission Risk Score: 23. 0-20 = Low/Moderate Risk - Follow up within 14 days 21-100 = High Risk - Follow up within 5 days Order Specific Question Answer Comments Follow Up Instructions for Patient: Other (See Comment) Please call [phone] to make a follow up appointment in clinic with Dr martin or NSGY K 9 HANDLER/ DEPUTY in two weeks for wound check CC: Jaden Thakur DO L AND DYE PERSON documented in this encounter Medications at Time of Discharge Medication Sig Dispensed Refills Start Date End Date Cetirizine HCl (ZYRTEC PO) Take 10 mg by mouth once daily Cholecalciferol 25 MCG (1000 UT) Insert 2 (two) tablets into appropriate tube once daily 12/14/2022 cyclobenzaprine (Flexeril) 5 MG tablet 12/14/2022 hydrOXYzine HCl (Atarax) 25 MG tablet Take 1 (one) tablet by mouth at bedtime 12/14/2022 metoprolol tartrate IR (Lopressor) 25 MG tablet Take 1 (one) tablet by mouth 2 times daily 08/15/2022 pantoprazole EC (Protonix) 40 MG tablet Take 1 (one) tablet by mouth once daily 12/15/2022 verapamil SR 24hr (Verelan) 120 MG capsule Take 1 (one) capsule by mouth at bedtime 10/17/2022 baclofen (Lioresal) 5 MG TABS Take 1 (one) tablet by mouth at bedtime 12/14/2022 01/15/2023 bethanechol (Urecholine) 25 MG tablet Take 1 (one) tablet by mouth 3 times daily 12/14/2022 04/05/2023 gabapentin (Neurontin) 300 MG capsule Take 1 (one) capsule by mouth 3 times daily 12/14/2022 levETIRAcetam (Keppra) 500 MG tablet Take 1 (one) tablet by mouth 2 times daily 60 tablet 1 01/11/2023 02/15/2023 oxyCODONE, immediate release, (Roxicodone) 5 MG tabletIndications:Acq uired skull defect Take 1 (one) tablet by mouth every 4 hours as needed 56 tablet 01/11/2023 04/05/2023 polyethylene glycol 3350 (Miralax) 17 g packet Insert 17 (seventeen) g into appropriate tube 2 times daily as needed 12/14/2022 04/05/2023 tamsulosin (Flomax) 0.4 MG capsule Take 1 (one) capsule by mouth once daily 12/14/2022 04/05/2023 documented as of this encounter Progress Notes * Zenia Heath - 01/11/2023 4:27 PM CDT Discharge Appliances Sample Maker received request from AMANDA Scott to arrange follow-up appointment for Patient with Neurosurgery. This comic book writer called [phone] and spoke with [employer]. Appliances Sample Maker was able toobtain follow-up appointment for Patient with AMANDA Blake on 01-25-2023 at 1:30PM. No further follow-up needs from pcas indicated at this time. Zenia Heath, Discharge Appliances Sample Maker 01/19/2023 L AND DYE PERSON * Jhony Bah, PharmD - 01/11/2023 4:25 PM CDT MEDICATION TO BEDSIDE DELIVERY: COMPLETE Medication to Bedside delivery was completed for Consuelo Darby. ??? A total of 2 prescriptions were delivered to the patient for discharge. ??? Medications were given to NURSE ([facility]) ??? This delivery included a controlled substance: YES, given to [facility] ??? This delivery included medication that should be stored in the fridge: NO Thank you for allowing the outpatient pharmacy to participate in the care of Consuelo Darby. If you have any questions, please contact the outpatient pharmacy at [phone]. Jhony Bah, Pega Developer [facility] [address] [place], [place] [address] Hours of Operation Sunday - Sunday: 8:00am to 6:00pm Sunday: 9:00am to 1:00pm Epic: [facility] *Ensure the patient and clinic's nearby ZIP codes box is unchecked* * Sandra Fernandez, PT - 01/11/2023 3:45 PM CDT [facility] Physical Therapy Initial Evaluation Note Patient: Consuelo Darby Med Record Number: [id number] Date of : 1980 Age: [age] year old PPE worn by staff: gloves;mask - procedural PPE worn by patient: gown - patient, clean Co-eval with OT due to unknown tolerance or functional abilities of patient. Recommendations: Discharge PT Discharge Recommendations: Patient would benefit from therapy in OP Day program In addition to the 1:1 evaluation of the patient, additional eval time was spent completing the chart review prior to the assessment, completing the multidisciplinary plan of care and education plan post evaluation and communicating results of the eval to other treatment team members. Patient currently using Rock Cane and wheelchair and has equipment at home. No equipment needs if d/c home. Nurse and Occupational Therapy contacted regarding patient status and/or discharge plan. Physician Orders: Evaluation and Treat PRECAUTIONS: Weight Bearing Status: (no WB restrictions) Activity Level: Up ad bigg DIAGNOSIS: Patient Active Problem List: GERD (gastroesophageal reflux disease) Hemianopsia Weakness Left-sided sensory deficit present Gaze palsy Acute cerebrovascular accident (CVA) due to embolism of right middle cerebral artery (CMS/HCC) Nihss score 9 Received intravenous tissue plasminogen activator (tPA) in emergency department Migraine Hypertension Right middle cerebral artery stroke (CMS/HCC) Presence of externally removable percutaneous endoscopic gastrostomy (PEG) tube (CMS/HCC) Anemia Hepatocellular injury Acquired skull defect Common femoral artery injury, right, subsequent encounter Past Medical History: Diagnosis Date ??? Abdominal pain, right upper quadrant ??? Anemia ??? CVA (cerebral vascular accident) (CMS/HCC) ??? Essential hypertension ??? GERD (gastroesophageal reflux disease) ??? History of hypertension gestational hypertension SUBJECTIVE: Subjective: Pt agreeable to working with therapy PATIENT GOALS: Patient's Primary Concern: getting my left side strogner Home Situation: Type of Residence: Private Residence Lives with:: Spouse;Children Steps to Enter: (has steps but also has access to ramp) Ramp: Yes Home Structure: One Story Primary Bedroom: First Floor Primary Bathroom: First Floor Bathroom : Walk in Shower Equipment at Home: Cane-Small Base Quad;Chair-Shower;Grab Bars;Wheelchair- Standard;Orthotics;Other (comment) (has LUE sling and LUE resting hand splint for nighttime use, LLE AFO) Prior Level of Functioning: Prior Level of Function Mobility: Ambulate-In Home ;With Assistive Device;With Physical Assistance Fallen Within 6 Mos: No Have Help at Home?: Yes, there is help at home now Who assists you at home?: Friends/Family How often is assistance provided?: assist w/ all ADLs/mobility Level of Help Sufficient?: Yes Oxygen at Home: No Vision: Corrected with glasses (contacts) Hearing Exceptions: No impairment Pain Assessment: Pain Location #1 Pain Scale/Observation: Numeric (0-10) Pain Rating Score #1: 5 Sedation Level #1: 1-Awake and alert Pain Location : Head;Incisional Pain Intervention(s): (RN notified) OBJECTIVE: At start of therapy session, patient found in bed and with no alarm. General Appearance: pleasant female, sitting in bed, AND LDAs: IV's: Peripheral line Edema: no edema noted in bilateral lower extremities Vitals: (*Assess the 3 levels of oxygen saturations both for room air and 02 unless rest on room air is 88% or less). Rest BP: 138/87 HR: 88 Sp02 Sp02 94% Room Air Ex/Gait/Activity Without 02 BP: HR: 77 Sp02 95% Room Air Post Activity BP: 146/89 HR: 80 Sp02 Sp02 95% Room Air Observations: Vitals monitored throughout session. Pt without any SOB, dizziness, or signs/symptomsof distress. RN notified and aware at end of session. Mental Status/Cognition: Level of Consciousness-Adult: Alert Orientation Level: Oriented X4 Cognition: Follows Commands-Consistent;Attention/concentration-normal for age;Processing-Appropriate ROM: RLE: AROM WFL LLE: PROM WFL Strength: RLE:WFL LLE: deficits noted, no muscle contraction palpated Tone: RLE: no abnormal tone noted LLE: flaccid Coordination: RLE: WNL LLE: impaired Sensation: RLE: no complaints of numbness or tingling LLE: no complaints of numbness or tingling Perception: Inattention/Neglect: Cues to attend left visual field Visual Motor Tracking: Dec smoothness of horizontal tracking;Dec smoothness of vertical tracking Mobility: A gait belt and non-slip socks were used for all out of bed activity this date. Bed Mobility: Supine to Sit: Moderate Assistance with HOB in semi-fowlers position Transfers: Sit to Stand: Maximum Assistance Stand to Sit: Maximum Assistance Bed to Chair: Maximum Assistance to Right;X 2 Type of Transfer: Stand Pivot Transfer Transfer Device: Gait belt Gait: Weight Bearing Status: (no WB restrictions) Distance Ambulated: 3 FEET (small steps from bed to chair) Ambulation: Assistive Device: Gait Belt Ambulation: Level of Assistance: Maximum Assistance;X 2 Ambulation: Gait Deviations: Assist to Advance Left Lower Extremity;Assist to Block Left Knee;Base of Support - Decreased;Zainab - Decreased;Heel Strike - Decreased;Increased Trunk Flexion;Knee Stability - Decreased during stance phase;Push Off - Decreased;Step Length - Decreased (variable foot placement, decreased step width) Comments: Pt performs standing pivot transfer to chair from bed with significant assist from therapists in order to maintain erect standing posture. Pt required max verbal cues for RLE advancement and physical assist to advance LLE. She demos good WS onto LLE in order to advance her RLE. Pt reportsthat transfer to chair is similar as to how she had been performing prior to entering hospital and something she has been working on recently at [facility]. Balance: Balance Scales/Tests Used: Sitting: Static/Dynamic;Standing: Static/Dynamic Sitting - Static: Fair +;With One Upper Extremity Support Sitting - Dynamic: Fair;With One Upper Extremity Support Standing - Static: Fair - Standing - Dynamic: Poor + Pt was able to achieve erect standing position with assist from therapist. She demos decreased endurance for standing and required L knee block and L ankle block to avoid her L ankle falling into inversion and to remain flat on floor. ACTIVITY TOLERANCE: Patient's activity tolerance: good TREATMENT/INTERVENTIONS: evaluation, bed mobility training, transfer training, gait training, balance activities and monitoring of vitals Modified Cidra: Current Modified Rajesh Score: 4 AM-PAC 6 Clicks Mobility Raw Score:: 10 EDUCATION: While performing PT, Patient was instructed in:functional mobility training, energy conservation, safety awareness/fall precautions , discharge planning, use of call light Presented to patient who demonstrates Good understanding of instructions given. INFORMED CONSENT TO TREATMENT: Plan of care including recommended therapy, goals and frequency, discussed with patient who understands and agrees to proceed. ASSESSMENT: Patient would benefit from additional Physical Therapy sessions to achieve the following functionalgoals to enhance independence. Short Term Goals: Goal Formation With patient Patient will perform bed mobility with minimal assist Patient will transfer sit to/from stand with moderate assist Patient will transfer bed to/from chair with maximal assist Manager [employer] Goal(s): Patient to be baseline with functional mobility and self-care and should discharge to prior level of care. Pt would benefit from returning to [facility] program at she was previously receiving PT services to continue progressing her strength and independnece with functional mobility. Equipment Issued: gait belt Plan: Plan: Gait training Transfer training Stair training Assistive device training Endurance training Bed mobility training Balance training Energy conservation techniques Safety awareness Home exercise program training If patient is discharged from the facility, this note serves as a discharge summary if further physical therapy visits did not occur. Refer to filed flowsheet for further details. Following therapy session, patient left in patient bedside chair, with call light within reach, with family in room, with RNUmu aware. All lines, monitors, IV's, equipment in place and intact pre and post visit. Patient was in no discomfort and had no additional needs at conclusion of PT eval. * Umu Cristina RN - 01/11/2023 3:14 PM CDT Problem: Pain/Discomfort Goal: Patient exhibits reduced pain/discomfort as evidenced by pain scores 01/11/2023 1514 by Umu Cristina RN Outcome: Adequate for Discharge 01/11/2023 0957 by Umu Cristina RN Outcome: Progressing Goal: Patient uses pharmacological and non-pharmacological pain management strategies. 01/11/2023 1514 by Umu Cristina RN Outcome: Adequate for Discharge 01/11/2023 0957 by Umu Cristina RN Outcome: Progressing Goal: Patient verbalizes acceptable level of pain relief and ability to engage in desired activity. 01/11/2023 1514 by Umu Cristina RN Outcome: Adequate for Discharge 01/11/2023 0957 by Umu Cristina RN Outcome: Progressing Problem: Skin Integrity Goal: Skin integrity is maintained or improved 01/11/2023 1514 by Umu Cristina RN Outcome: Adequate for Discharge 01/11/2023 0957 by Umu Cristina RN Outcome: Progressing Problem: Fall Risk Goal: Fall risk and fall related injury risk are minimized (interventions related to the fall risk can be found in the flowsheet documentation) 01/11/2023 1514 by Umu Cristina RN Outcome: Adequate for Discharge 01/11/2023 0957 by Umu Cristina RN Outcome: Progressing * Ct Cartwright OT - 01/11/2023 9:59 AM CDT [facility] Physical Medicine [facility] Rehabilitation Occupational Therapy Initial Evaluation Note Patient: Consuelo Darby Med Record Number: [id number] Date of : 1980 Age: [age] year old PPE worn by staff: gloves;mask - procedural Recommendations: Discharge OT Discharge Recommendations: Patient would benefit from therapy in OP Day program In addition to the 1:1 evaluation of the patient, additional eval time was spent completing the chart review prior to the assessment, completing the multidisciplinary plan of care and education plan post evaluation and communicating results of the eval to other treatment team members. Nurse and Physical Therapy (co-evaluation) contacted regarding patient status and/or discharge plan. 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 Abdominal pain, right upper quadrant ??? Anemia ??? CVA (cerebral vascular accident) (CMS/HCC) ??? Essential hypertension ??? GERD (gastroesophageal reflux disease) ??? History of hypertension gestational hypertension SUBJECTIVE: Subjective: Patient agreeable for therapy PATIENT GOALS: Patient's Primary Concern: Continue therapy at [facility] Home Situation: Type of Residence: Private Residence Lives with:: Spouse;Children Steps to Enter: (has steps but also has access to ramp) Ramp: Yes Home Structure: One Story Primary Bedroom: First Floor Primary Bathroom: First Floor Bathroom : Walk in Shower Equipment at Home: Cane-Small Base Quad;Chair-Shower;Grab Bars;Wheelchair- Standard;Orthotics;Other (comment) (has LUE sling and LUE resting hand splint for nighttime use, LLE AFO) Additional Information (OT): Starting to use cane at home; has been using rock- aid at [facility], recently fitted for LLE AFO. Attends [facility] 5 days/week for 5 hrs/day. Prior Level of Functioning: Mobility: Ambulate-In Home ;With Assistive Device;With Physical Assistance Fallen Within 6 Mos: No Have Help at Home?: Yes, there is help at home now Who assists you at home?: Friends/Family How often is assistance provided?: assist w/ all ADLs/mobility Level of Help Sufficient?: Yes Oxygen at Home: No Vision: Corrected with glasses (contacts) Hearing Exceptions: No impairment Who manages medications?: family sets up Pain Assessment: Pain Location #1 Pain Scale/Observation: Numeric (0-10) Pain Rating Score #1: 5 Sedation Level #1: 1-Awake and alert Pain Location : Head;Incisional Pain Intervention(s): (RN notified) OBJECTIVE: At start of therapy session, patient found in bed General Appearance: NAD, alert LDA: IV's: Peripheral line Edema: No edema noted Vitals: (*Assess the 3 levels of oxygen saturations both for room air and 02 unless rest on room air is 88% or less). Rest BP: 138/87 (107) HR: 89 Sp02 Sp02 94% Room Air Post Activity BP: 146/89 (107) HR: 81 Sp02 Sp02 95% Room Air Observations: Vitals stable on continuous ICU monitor. No signs or c/o distress. Mental Status/Cognition: Level of Consciousness-Adult: Alert Orientation Level: Oriented X4 Cognition: Follows Commands-Consistent;Attention/concentration-normal for age;Processing-Appropriate UE ROM: RUE: AROM WFL LUE: PROM WFL, no active movement noted Strength: RUE: WFL LUE: 0/5 throughout except 1/5 shoulder UE Tone RUE: no abnormal tone noted LUE: flexor tone extensor tone Coordination: RUE intact, LUE absent UE Sensation RUE: no complaints of numbness or tingling LUE: no complaints of numbness or tingling Perception: Inattention/Neglect: Cues to attend left visual field Visual Motor Tracking: Dec smoothness of horizontal tracking;Dec smoothness of vertical tracking Mobility: A gait belt and non-slip socks were used for all out of bed activity this date. Bed Mobility: Supine to Sit: Moderate Assistance with HOB in semi-fowlers position Transfers: Sit to Stand: Maximum Assistance Stand to Sit: Maximum Assistance Bed to Chair: Maximum Assistance to Right;X 2 Type of Transfer: Stand Pivot Transfer Transfer Device: Gait belt Functional Ambulation: Functional mobility of ambulation few steps from EOB to drop-arm recliner with maximal assist x2 using handheld assist. Comments: External rotation of L ankle, AFO not present in room. Assist to support LUE. Per family at bedside, mobility at baseline; patient has been attending [facility] [place] to progress with mobility. Balance: Balance Scales/Tests Used: Sitting: Static/Dynamic;Standing: Static/Dynamic Sitting - Static: Fair +;With One Upper Extremity Support Sitting - Dynamic: Fair;With One Upper Extremity Support Standing - Static: Fair - Standing - Dynamic: Poor + Activities of Daily Living Feeding: Stand By Assist (using RUE) Upper Body Dressing: Moderate Assistance (adjust gown) ACTIVITY TOLERANCE: Patient's activity tolerance: fair plus. Modified [place]: Current Modified Rajesh Score: 4 AM-PAC 6 Clicks Daily Activity Raw Score:: 14 TREATMENT / EDUCATION / INTERVENTIONS: While performing OT, Patient and spouse was instructed in:functional mobility training, self-care training, safety awareness/fall precautions , discharge planning, use of call light Presented to patient who demonstrates Good understanding of instructions given. INFORMED CONSENT TO TREATMENT: Plan of care including recommended therapy, goals and frequency, discussed with patient who understands and agrees to proceed. ASSESSMENT: Functional performance limited due to: limited activities of daily living, pain, decreased functional mobility, decreased functional balance, upper extremity functional impairments, decreased endurance and activity tolerance, decreased coordination and decreased visual motor skills. Patient continues to benefit from skilled Occupational Therapy to achieve the following functional goals. Short Term Goals: Goal Formation With patient/family Patient will perform home exercise program with moderate assist Patient will perform grooming with stand by assist Patient will perform upper extremity dressing with stand by assist Patient will perform supine to/from sit with stand by assist Patient will transfer sit to stand with minimal assist Patient will perform bed to chair with moderate assist and X 1 Manager [employer] Goal(s): Patient to be baseline with functional mobility and self-care and should discharge to prior level of care. Plan: Plan: ADL training Functional transfer training Functional balance training Endurance training Bed mobility training Safety awareness Home exercise program training Coordination exercises If patient is discharged from the facility, this note serves as a discharge summary if further occupational therapy visits did not occur. Refer to filed flowsheet for further details. Following therapy session, patient left in patient bedside chair, with green waffle cushion in place, with call light within reach, with family in room, with Umu BOGGS aware, with therapy cues visible on white board. * Umu Cristina RN - 01/11/2023 9:57 AM CDT Problem: Pain/Discomfort Goal: Patient exhibits reduced pain/discomfort as evidenced by pain scores Outcome: Progressing Goal: Patient uses pharmacological and non-pharmacological pain management strategies. Outcome: Progressing Goal: Patient verbalizes acceptable level of pain relief and ability to engage in desired activity. Outcome: Progressing Problem: Skin Integrity Goal: Skin integrity is maintained or improved Outcome: Progressing Problem: Fall Risk Goal: Fall risk and fall related injury risk are minimized (interventions related to the fall risk can be found in the flowsheet documentation) Outcome: Progressing Problem: Procedural Site (Incision) Care Goal: Incision remains intact with edges well approximated Outcome: Progressing Goal: Incision is free of infection. Outcome: Progressing * Krupa Ortiz RN - 01/11/2023 7:39 AM CDT Problem: Pain/Discomfort Goal: Patient exhibits reduced pain/discomfort as evidenced by pain scores Outcome: Progressing Goal: Patient uses pharmacological and non-pharmacological pain management strategies. Outcome: Progressing Goal: Patient verbalizes acceptable level of pain relief and ability to engage in desired activity. Outcome: Progressing Problem: Skin Integrity Goal: Skin integrity is maintained or improved Outcome: Progressing Problem: Fall Risk Goal: Fall risk and fall related injury risk are minimized (interventions related to the fall risk can be found in the flowsheet documentation) Outcome: Progressing Problem: Procedural Site (Incision) Care Goal: Incision remains intact with edges well approximated Outcome: Progressing Goal: Incision is free of infection. Outcome: Progressing * Jarvis Gagnon MD - 01/11/2023 7:07 AM CDT Neurosurgery Daily Progress Note Consuelo Darby 01/11/23 Hospital Day: 1 Subjective: No acute events. Doing well postop. CT head with expected postsurgical changes, good bony contour. Objective: T: 98.1 ??F (36.7 ??C) [Temp Min: 97.4 ??F (36.3 ??C) Max: 98.4 ??F (36.9 ??C)] BP: 126/69[BP Min: 111/59 Max: 133/60] MAP: 93[MAP (mmHg) Min: 79 Max: 108] HR: 78[Pulse Min: 73 Max: 117] RR: 26[Resp Min: 6 Max: 26] Sat: 93 %[SpO2 Min: 91 % Max: 100 %] Input/Output: 01/10 07 - 01/11 07 In: 3291.4 [P.O.:900; I.V.:2391.4] Out: 3150 [Urine:3000] Respiratory: RA Labs: Recent Labs Component Name 01/11/23 0426 WBC 10.0 HGB 10.8* HCT 34.2* PLTCOUNT 298 Recent Labs Component Name 01/11/23 0426 NA 139 POTASSIUM 4.1 CO2 24 BUN 10 CREATININE 0.46* CALCIUM 8.8 GLUCOSE 133* Recent Labs Component Name 01/10/23 1130 INR 0.9 PTT 22.2* Imaging: CT head wo contrast Redemonstration of postsurgical changes of prior progressive right parietotemporal frontal craniectomy with interval cranioplasty. There is a [id number] amount of scattered pneumocephalus along the left cerebral convexity with scattered hyperdensities underlying the cranial fossae bone flap which may represents postoperative blood products. There are also subtle hyperdensities within the area of encephalomalacia within the frontal parietal region which may represent calcification versus blood products. Interval expected evolution of the previous described evolving MCA territory infarctnow appearing as an large area and several malacia within the frontoparietal region of the right cerebral hemisphere. There is resulting mild to moderate expected dilatation of the right lateral ventricle. Redemonstration of small volume extracranial fluid collection along the cranioplasty site measuring 1.8 cm in maximal thickness with scattered postoperative subcutaneous gas. There are overlying surgical carla. Diet: DIET REGULAR MEDICATIONS FOR CURRENT ENCOUNTER: ?? SCHEDULED MEDICATIONS: ?? 0.9% NaCl injection 3 mL, Intracatheter, q8h ?? baclofen (Lioresal) tablet 5 mg, Oral, AT BEDTIME ?? bethanechol (Urecholine) tablet 25 mg, Oral, TID ?? chlorhexidine (Peridex) 0.12 % oral solution 15 mL, Mouth/Throat, BID ?? cyclobenzaprine (Flexeril) tablet 5 mg, Oral, AT BEDTIME ?? gabapentin (Neurontin) capsule 300 mg, Oral, TID ?? levETIRAcetam (Keppra) injection 500 mg, Intravenous, q12h ?? metoprolol tartrate IR (Lopressor) tablet 25 mg, Oral, BID ?? multiple vitamins with minerals tablet 1 tablet, Oral, QDAY ?? pantoprazole EC (Protonix) tablet 40 mg, Oral, QDAY ?? polyethylene glycol 3350 (Miralax) packet 17 g, Oral, QDAY ?? senna (Senokot) tablet 8.6 mg, Oral, QDAY ?? tamsulosin (Flomax) capsule 0.4 mg, Oral, QDAY ?? verapamil CR (Isoptin-SR) tablet 120 mg, Oral, AT BEDTIME ?? vitamin D3 (Cholecalciferol) 25 MCG (1000 UNITS) tablet 2,000 Units, Oral, QDAY ?? CONTINUOUS MEDICATIONS: ?? 0.9% NaCl infusion, Intravenous, Continuous ?? PRN MEDICATIONS: ?? Or ?? 0.9% NaCl injection 1-10 mL, Intracatheter, PRN ?? acetaminophen (Tylenol) tablet 650 mg, Oral, q6h PRN ?? bisacodyl (Dulcolax) suppository 10 mg, Rectal, Once PRN ?? hydrALAZINE (Apresoline) injection 10 mg, Intravenous, q30 min PRN ?? labetalol (Normodyne; Trandate) injection 10 mg, Intravenous, q15 min PRN ?? LORazepam (Ativan) injection 2 mg, Intravenous, q2min PRN ?? magnesium hydroxide (Milk Of Magnesia) suspension 30 mL, Oral, Once PRN ?? morphine injection 2 mg, Intravenous, q3h PRN ?? naloxone (Narcan) injection 0.2 mg, Intravenous, PRN ?? ondansetron (disintegrating) (Zofran ODT) tablet 4 mg, Oral, q6h PRN ?? ondansetron (Zofran) injection 4 mg, Intravenous, q6h PRN ?? oxyCODONE (immediate release) (Roxicodone) tablet 5 mg, Oral, q4h PRN ?? simethicone (Mylicon) chew tablet 80 mg, Oral, q6h PRN ?? sodium phosphate rectal (Fleet) enema 133 mL, Rectal, Once PRN General Appearance: NAD HEENT: Incision CDI well approximated with dressing in place Abd: Soft, NT/ND Ext: No clubbing/cyanosis/edema Neuro: Awake and alert, interactive. 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 Plan: Regular diet PRN pain control HOB 30 degrees Serial neuro checks q4hrs Strict I/Os Bowel regimen Acute blood loss anemia, no transfusion for now; follow CBC Regular wound care SCDs for DVT prophylaxis; heparin sc PT/OT encourage OOB Dispo: surgical unit, DC pending PT recs Code : FULL Jarvis Gagnon MD 7:07 AM 01/11/23 * Laura Patel, CHANNEL SALES DIRECTOR-WARDSPERSON - 01/10/2023 4:43 PM CDT NEUROSURGERY POST-OP NOTE : SUBJECTIVE Consuelo Darby is POD 0 s/p right cranioplasty, replacement of [place] bone (Right: Head) Incisional pain / per patient LABORATORY Data Review CBC: Recent Labs Component Name 01/10/23 1130 12/21/22 1107 12/14/22 0658 10/27/22202810/27/22 0054 WBC 9.0 12.3* 11.3* - 19.5* HGB 14.7 14.4 12.5 - 8.0* HCT 45.6* 45.5* 39.1 - 24.6* PLATELET - - - - Occasional* PLTCOUNT 320 351 460* - 519* - = values in this interval not displayed. BMP: Recent Labs Component Name 12/21/22 1107 12/14/22 0658 12/11/22 0209 12/07/22 0915 SODIUM - 136 141 138 POTASSIUM 3.7 4.3 4.2 3.6 CHLORIDE - 105 110* 101 CO2 27 21* 21* 23 BUN 10 17 11 8 CREATININE 0.53* 0.71 0.66 0.76 GLUCOSE 76 97 113* 164* CALCIUM 9.8 9.5 9.0 9.3 PHYSICAL EXAM Patient Vitals for the past 6 hrs: Temp Pulse Resp BP BP Method 01/10/23 1600 -- 105 11 121/74 -- 01/10/23 1544 98.3 ??F (36.8 ??C) (!) 110 10 122/71 Automatic 01/10/23 1530 -- 106 11 125/73 -- 01/10/23 1520 -- 102 11 125/59 -- 01/10/23 1515 -- (!) 117 13 125/65 -- 01/10/23 1510 -- 105 11 120/66 -- 01/10/23 1505 -- 103 11 117/65 -- 01/10/23 1500 -- 108 9 123/47 -- 01/10/23 1455 -- (!) 110 (!) 6 -- -- 01/10/23 1450 -- 95 12 -- -- 01/10/23 1445 97.4 ??F (36.3 ??C) (!) 110 15 133/60 Automatic 01/10/23 1121 -- 74 13 120/75 -- 01/10/23 1105 97.9 ??F (36.6 ??C) 73 15 131/86 Automatic Diet: DIET REGULAR Respiratory: room air IV Fluids: 0.9% NaCl IV, EXAM: General: no acute distress Neuro: wakes easily, oriented x3, ou=r, left facial droop, left hemiplegia, moving RUE/RLE to command with generalized weakness Cranial dressing intact, small amount of breakthrough bleeding at distal incision. Imaging: CT tomorrow ASSESSMENT/PLAN: Consuelo Stock Pjlubna is POD 0 s/p right cranioplasty, replacement of [place] bone (Right: Head) - Follow exam - Pain control - Advance diet as tolerated - Activity as tolerated - CT in AM Laura Patel APRN-WARDSPERSON 01/10/2023 4:43 PM documented in this encounter H&P Notes * Jarvis Gagnon MD - 01/10/2023 10:18 AM CDT Neurosurgery Preop H&P NAME: Consuelo Darby DATE OF SERVICE: 01/10/2023 TIME OF SERVICE: 10:18 AM DATE: 1980 PCP: Jaden Thakur DO Chief Complaint Acquired skull defect Subjective Consuelo Darby is a 42 year old female presenting for elective cranioplasty. She underwent decompressive hemicraniectomy for right MCA infarct secondary to emboli from cardiac vegetations. She is in a rehab day program and has made significant improvement in her speech but still has dense left sided weakness. She was on coumadin for her cardiac vegetations. There has been no recent history of headaches, irritability, increased sleepiness, nausea or vomiting, fever or seizure activity. Present on Admission: ??? Weakness ??? Right middle cerebral artery stroke (CMS/HCC) ??? Nihss score 9 ??? Migraine ??? Left-sided sensory deficit present ??? Hypertension ??? Hemianopsia ??? GERD (gastroesophageal reflux disease) ??? Gaze palsy ??? Acquired skull defect [facility] NEUROSURGERY HIGH RISK VARIABLES Coagulation Defect - Coagulation defect, unspecified Were these Present On Admission? Yes Review of Systems GENERAL: no recent fevers, no infections HEENT: Denies ear pain, cough, congestion, vision changes CARDIOVASCULAR: no murmur, no CHD, no chest pain RESPIRATORY: no cough, no wheeze, no difficulty beathing GASTROINTESTINAL: No constipation, no changes in appetite MUSCULOSKELETAL: no joint pain or swelling SKIN: no rashes, no discoloration NEUROLOGIC: no headaches, no seizures, no irritability, no lethargy HEM/ID: no bruising, no bleeding ENDO: no polydipsia, no polyuria Past Medical History No history on file. Past Medical History: Diagnosis Date ??? Abdominal pain, right upper quadrant ??? Anemia ??? CVA (cerebral vascular accident) (CMS/HCC) ??? Essential hypertension ??? GERD (gastroesophageal reflux disease) ??? History of hypertension gestational hypertension Past Surgical History Past Surgical History: Procedure Laterality Date ??? [...] EGD, POSS. EX-LAP LEVEL 3 @ 1500 Medications No current facility-administered medications on file prior to encounter. Current Outpatient Medications on File Prior to Encounter Medication Sig Dispense Refill ??? Cetirizine HCl (ZYRTEC PO) Take 10 mg by mouth once daily ??? metoprolol tartrate IR (Lopressor) 25 MG tablet Take 1 (one) tablet by mouth 2 times daily ??? verapamil SR 24hr (Verelan) 120 MG capsule Take 1 (one) capsule by mouth at bedtime Allergies Allergies Allergen Reactions ??? 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 Fever Social History Social History Smoking status: Former Packs/day: 0.50 Years: 0.00 Types: Cigarettes Quit date: 2014 Smokeless tobacco: Never Alcohol use: No Comment: Occasional Drug use: No Sexual activity: Yes Partners with: Male control/protection: Pill Social History Social History Narrative ??? Not on file Family History Family History Problem Relation Name Age of Onset ??? Cancer Maternal Grandfather Lung ??? Diabetes Maternal Grandfather ??? Diabetes Maternal Grandmother ??? Hypertension Mother ??? Thyroid Disease Mother Objective General Appearance: NAD Abd: Soft, NT/ND/NBS Ext: No clubbing/cyanosis/edema Neuro: Awake and alert, interactive. PERRL, EOMI, left facial weakness, left hemiplegia, right sidefull strength. R cranial wound well healed without evidence of wound breakdown or dehiscence. Imaging CT head wo contrast 1.Redemonstration of postsurgical changes of right frontotemporoparietal decompressive craniectomy with expected interval evolution of the previously seen postsurgical changes and expected interval evolution of the 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 2.Subtle paradoxical medial deviation of the anterior aspect of the craniectomy flap but no mass effect or significant compression to suggest Syndrome of the trephined. 3.No new acute intracranial hemorrhage. A/P Consuelo Darby is a 42 year old female with acquired skull defect. Plans for right sided [place] bone cranioplasty. Inform consent obtained. Jarvis Gagnon MD 10:18 AM documented in this encounter Nursing Notes * Zakiya Prabhakar RN - 01/10/2023 1:15 PM CDT 1g cefazolin delivered to sterile field; added to irrigation. documented in this encounter OR Notes * Brief Op Note - Jarvis Gagnon MD - 01/10/2023 12:56 PM CDT Brief Op Note Procedure: right cranioplasty, replacement of [place] bone Patient Name: Consuelo Darby Date of Service: 01/10/2023 Pre-Op Diagnosis: acquired skull defect Post-Op Diagnosis: same Surgeon(s) and Role: * Jazz Martin MD - Primary * Jarvis Gagnon MD - Resident - Assisting Anesthesia Type: general ETT Complications: none Findings: good bony contour EBL: 150 mL Urine Output : anesthesia chart IV Fluid Intake: anesthesia chart Drains: Enteral - Percutaneous Endoscopic Gastrostomy Abdomen;Left;Upper (Active) Specimen(s): * No specimens in log * Implant(s): Implant Name Type Inv. Item Serial No. Parts Expediter Lot No. [id number] No. Used Action Screw 1.5Mm 4Mm Crnmxf Slfdrl Screw 1.5Mm 4Mm Crnmxf Slfdrl Synthes Maxillofacial Right 28 Implanted Cover Bur Hl Rob 24Mm Matrixneuro Crnl Cover Bur Hl Rob 24Mm Matrixneuro Crnl Synthes MaxillofacialRight 1 Implanted Plate 5 Hl Adp Rgd Crnl .4Mm Matrixneuro Plate 5 Hl Adp Rgd Crnl .4Mm Matrixneuro Synthes [place] Right2 Implanted Plate 4 Hl Ult Lopro Chmfr Edg Crnl Plate 4 Hl Ult Lopro Chmfr Edg Crnl Synthes [place] Right 1 Implanted Plate 4 Hl Ult Lopro Chmfr Edg Crnl 16 Plate 4 Hl Ult Lopro Chmfr Edg Crnl 16 Synthes [place] Right 1 Implanted Plate Contr Mesh Mlbl Mstd 45Mmx.4Mm Med Plate Contr Mesh Mlbl Mstd 45Mmx.4Mm Med Synthes Maxillofacial Right 1 Implanted Jarvis Gagnon MD * Operative - Jazz Martin MD - 01/10/2023 12:56 PM CDT NAME: CONSUELO DARBY : 1980 AGE: 42 SEX: F PROC DATE: 01/10/2023 SURGEON: Jazz Martin MD PREOPERATIVE DIAGNOSIS: Acquired skull defect. POSTOPERATIVE DIAGNOSIS: Acquired skull defect. PROCEDURE: Right sided cranioplasty for skull defect > 5 cm with saginaw chippewa bone flap replacement and titanium plates/screws (Synthes MaxilloFacial) SURGEON: Jazz Martin M.D. CHART PICKER: Jarvis Gagnon M.D. ANESTHESIA: General. POSITION: Supine with the head turned. INDICATIONS: The patient is a 42 year old female presenting for elective cranioplasty. She underwent decompressive hemicraniectomy for right MCA infarct secondary to emboli from cardiac vegetations. She is in a rehab day program and has made significant improvement in her speech but still has denseleft sided weakness. She was on coumadin for her cardiac vegetations which has currently been discontinued. There has been no recent history of headaches, irritability, increased sleepiness, nausea or vomiting, fever or seizure activity. She recovered well and returns today for skull reconstructionwith saginaw chippewa bone flap. All risks and benefits were explained in detail. Informed consent was obtained from the patient prior to proceeding to the operating room. DESCRIPTION OF PROCEDURE: After informed consent was obtained, the patient was brought into the operating room where general anesthesia was induced. Once the airway and lines were deemed secure, the table was turned 180 degrees and the patient was positioned with a bump under her right shoulder with the head turned towards the left side to expose the cranial defect. The previous reverse question gisselle incision was identified, the overlying hair removed and the skin was cleansed with alcohol. Theskin was then prepped and draped in the usual sterile fashion. Surgical timeout was performed. Skinincision was made with a 10-blade scalpel and carried down through the skin into the subcutaneous fat. The remaining dissection was performed with the Bovie electrocautery until we reached the bone edge of the prior craniectomy. Once the bone was reached, we developed a plane underneath the temporalis muscle and elevated the scalp off of the defect, leaving a layer of pseudodura. 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 The scalp and muscle came off in 1 plane and hemostasis was achieved with the Bovie as well as bipolar electrocautery. Once the skin flap was reflected anteriorly, the bone edges were dissected clear to allow for seating of the bone flap. We worked circumferentially around the defect until all of the bone edges were exposed and hemostasis was achieved with FloSeal and surgicel in the epidural space. The wound was copiously irrigated with saline At this time, the saginaw chippewa bone flap was brought into the field to test its fit and we found good contour with the flap and proceeded with plating. The 248 [employer] MaxFacial titanium plating system was utilized to allow for fixationof the flap. After the bone flap was plated on the back table, 2-0 silk sutures were placed into the dura and plan to insert through holes in the bone for central tack-ups. The wound was copiously irrigated and the saginaw chippewa bone implant was fitted onto the skull with the sutures inserted through the central tack-up holes. The implant was reaffixed utilizing 4 mm screws, and once secured, the central tack- ups were tied to allow for tenting of the pseudodura towards the bone and closure of the epidural space. The wound was again irrigated. At this time, we turned our attention to closure. The scalp flap was then elevated circumferentially from the underlying periosteum to create a tension free c losure. A combination of 2-0 and 3-0 Vicryl sutures were utilized in the subgaleal plane to retractthe galea. Once this was completed, the skin was approximated using carla. 2-0 Nylon interrupted vertical mattress were used at the parietal area of the wound for closure. After the skin was closed, a sterile dressing was applied. At this time, the drapes were removed, the table was turned back towards anesthesia and the patient was successfully extubated and taken to PACU in stable condition. ESTIMATED BLOOD LOSS: 150 mL. FINDINGS: Good bony contour. DISPOSITION: PACU. CONDITION: Stable. COMPLICATIONS: None Implants: Synthes titanium screws (4 mm) and plates Implant Name Type Inv. Item Serial No. Parts Expediter Lot No. LRB No. Used Action Screw 1.5Mm 4Mm Crnmxf Slfdrl Screw 1.5Mm 4Mm Crnmxf Slfdrl Synthes Maxillofacial Right 28 Implanted Cover Bur Hl Rob 24Mm Matrixneuro Crnl Cover Bur Hl Rob 24Mm Matrixneuro Crnl Synthes MaxillofacialRight 1 Implanted Plate 5 Hl Adp Rgd Crnl .4Mm Matrixneuro Plate 5 Hl Adp Rgd Crnl .4Mm Matrixneuro Synthes [place] Right2 Implanted Plate 4 Hl Ult Lopro Chmfr Edg Crnl Plate 4 Hl Ult Lopro Chmfr Edg Crnl Synthes [place] Right 1 Implanted Plate 4 Hl Ult Lopro Chmfr Edg Crnl 16 Plate 4 Hl Ult Lopro Chmfr Edg Crnl 16 Synthes [place] Right 1 Implanted Plate Contr Mesh Mlbl Mstd 45Mmx.4Mm Med Plate Contr Mesh Mlbl Mstd 45Mmx.4Mm Med Synthes Maxillofacial Right 1 Implanted ATTENDING ATTESTATION: I reviewed the resident's note and agree with the documented findings. I was present for the entireprocedure. Jazz Martin MD 01/15/2023 12:10 PM L AND DYE PERSON documented in this encounter Plan of Treatment Scheduled Referrals Name Type Priority Associated Diagnoses Order Schedule Referral to Orthopedic Surgery Outpatient Referral Routine Acquired skull defect 1 Occurrences starting 01/11/2023 until 01/12/2024 documented as of this encounter Procedures Procedure Name Priority Date/Time Associated Diagnosis Comments CBC W AUTO DIFFERENTIAL Routine 01/11/2023 4:26 AM CDT BASIC METABOLIC PANEL (CALCIUM TOTAL) Routine 01/11/2023 4:[address] HEAD WO CONTRAST Routine 01/11/2023 3 :30 AM CDT Acquired skull defect SD REPAIR SKULL DEFECT,>5CM 01/10/2023 12:56 PM CDT Acquired skull defect Case Notes [facility] [employer] Special Needs SUPINE--Bone flap verified in freezer synthes plating system--Anne Marie notified mk 01/08 PTT [facility] STAT 01/10/2023 11:30 AM CDT PT-INR [facility] STAT 01/10/2023 11:30 AM CDT Pre-op evaluation TYPE + SCREEN PANEL STAT 01/10/2023 1 1:30 AM CDT Pre-op evaluation CBC W AUTO DIFFERENTIAL JOSE GUADALUPE 01/10/2023 11:30 AM CDT Pre-op evaluation HCG URINE QUALITATIVE - POCT (IP) INTERFACED Routine 01/10/2023 10:30 AM CDT HCG URINE QUAL POCT NOTIFICATION STAT 01/10/2023 10:09 AM CDT Pre-op evaluation documented in this encounter Results * (ABNORMAL) CBC W AUTO DIFFERENTIAL (01/11/2023 4:26 AM CDT) WBC 10.0 3.5 - 10.5 10? 3 /uL 01/11/2023 5:21 AM CDT [facility] RBC 3.75(L) 3.80 - 5.20 10? 6 /uL [facility] Hemoglobin 10.8(L) 12.0 - 15.6 g/dL 01/11/2023 5:21 AM [facility] Hematocrit 34.2(L) 35.0 - 45.0 % 01/11/2023 5:21 AM [facility] MCV 91.2 80.7 - 98.3 fL 01/11/2023 5:21 AM [facility] MCH 28.8 26.7 - 34.0 pg 01/11/2023 5:21 AM [facility] MCHC 31.6 30.8 - 35.9 g/dL 01/11/2023 5:21 AM [facility] RDW-SD 52.9(H) 36.0 - 50.0 fL 01/11/2023 5:21 AM [facility] RDW-CV 15.8(H) 11.2 - 14.8 % 01/11/2023 5:21 AM [facility] Platelet Count 298 150 - 400 10? 3 /uL 01/11/2023 5:21 AM [facility] MPV 10.0 9.4 - 12.9 fL 01/11/2023 5:21 AM [facility] nRBC Absolute 0.00 0 10? 3 /uL 01/11/2023 5:21 AM [facility] nRBC Auto 0.0 0 /100 WBC 01/11/2023 5:21 AM [facility] Neutrophils % 81.5(H) 35.0 - 70.0 % 01/11/2023 5:21 AM [facility] Lymphocytes % 10.7(L) 20.0 - 43.0 % 01/11/2023 5:21 AM [facility] Monocytes % 7.2 5.0 - 13.0 % 01/11/2023 5:21 AM [facility] Eosinophils % 0.0 0.0 - 6.0 % 01/11/2023 5:21 AM [facility] Basophil % 0.3 0.0 - 2.0 % 01/11/2023 5:21 AM [facility] Neutrophils Absolute 8.17(H) 1.60 - 7.00 10? 3 /uL 01/11/2023 5:21 AM [facility] Lymphocyte Absolute 1.07(L) 1.10 - 3.90 10? 3 /uL 01/11/2023 5:21 AM [facility] Monocytes Absolute 0.72 0.26 - 1.07 10? 3 /uL 01/11/2023 5:21 AM [facility] Eosinophils Absolute 0.00 0.00 - 0.47 10? 3 /uL 01/11/2023 5:21 AM [facility] Basophils Absolute 0.03 0.00 - 0.08 10? 3 /uL 01/11/2023 5:21 AM [facility] Immature Granulocytes % 0.3 0.0 - 1.0 % 01/11/2023 5:21 AM [facility] Immature Granulocytes Absolute 0.03 01/11/2023 5:21 AM [facility] Blood BLOOD SPECIMEN / Unknown Venipuncture / Unknown 01/11/2023 4:26 AM CDT 01/11/2023 4:35 AM CDT Jazz Martin MD LAB - HEMATOLOGY ORD ERABLES [facility] [address] [place] [address], [facility] [phone] * (ABNORMAL) BASIC METABOLIC PANEL (CALCIUM TOTAL) (01/11/2023 4:26 AM CDT) BUN 10 7 - 26 mg/dL 01/11/2023 5:00 AM [facility] Creatinine 0.46(L) 0.56 - 0.96 mg/dL 01/11/2023 5:00 AM [facility] Sodium 139 136 - 145 mmol/L 01/11/2023 5:00 AM [facility] Potassium 4.1 3.5 - 4.5 mmol/L 01/11/2023 5:00 AM [facility] Chloride 107 98 - 107 mmol/L 01/11/2023 5:00 AM [facility] CO2 24 22 - 29 mmol/L 01/11/2023 5:00 AM [facility] Glucose 133(H) 70 - 115 mg/dL 01/11/2023 5:00 AM T [facility] Calcium 8.8 8.4 - 10.2 mg/dL 01/11/2023 5:00 AM [facility] Anion Gap 8 6 - 16 01/11/2023 5:00 AM T [facility] BUN/Creatinine Ratio 22 7 - 23 01/11/2023 5:00 AM T [facility] Osmolality Calculated 289 275 - 295 mOsm/kg 01/11/2023 5:00 AM T [facility] eGFR by CKD-EPI >90 >=90 mL/min/1.7 3 m2 01/11/2023 5:00 AM [facility] Blood BLOOD SPECIMEN / Unknown Venipuncture / Unknown 01/11/2023 4:26 AM CDT 01/11/2023 4:35 AM CDT Jazz Martin MD [facility] Organization Address City/State/ZIP Co de Phone Number [facility] [address] [place] [address], [facility] [phone] * CT HEAD NON CONTRAST (01/11/2023 3:30 AM CDT) Anatomical Region Laterality Modality Head Computed Tomogra phy 01/11/2023 12:5 2 PM CDT Impressions 01/11/2023 12:56 PM CDT IMPRESSION: 1. Postsurgical changes of interval right cranioplasty with placement of the saginaw chippewa bone flap. A 1 cm extracranial/subgaleal fluid collection may represent surgical seroma versus a pseudomeningocele cell. 2. Further evolution of a chronic right MCA infarct. > Interpreting Provider: Lonnie Rae MD on 01/11/2023 12:56 PM Narrative 01/11/2023 12:56 PM CDT PROCEDURE: ??CT HEAD WO CONTRAST, DATE/TIME OF EXAM: ??01/11/2023 3:31 AM, LOCATION ??[facility] INDICATION: M95.2: Acquired skull defect ADDITIONAL CLINICAL INFORMATION: Ordering Provider Reason For Exam: ??s/p cranioplasty Technologist Note: Additional: EXAMINATION: Computed tomography (CT) of the head without contrast TECHNIQUE: CT of the head was performed without contrast according to standard protocol. COMPARISON: 12/21/2022. FINDINGS: There has been interval right cranioplasty with replacement of the saginaw chippewa bone flap. Some pneumocephalus and a small extra-axial fluid/hemorrhage collection are noted underlying the craniotomy site. There is a extracranial subgaleal fluid collection measuring approximately 1 cm in maximal thickness, which may represent surgical seroma versus a pseudomeningocele. Again demonstrated is a developing encephalomalacia in the right cerebral hemisphere and the right basal ganglia, consistent with an evolving chronic right MCA infarct. There is mild cerebral volume loss with associated ex vacuo ventricular dilatation. The basal cisterns are patent. No mass effect or midline shift is seen. The visualized portions of the orbits, paranasal sinuses, and mastoids appear normal. Procedure Note Lonnie Rae MD - 01/11/2023 PROCEDURE: CT HEAD WO CONTRAST, DATE/TIME OF EXAM: 01/11/2023 3:31 AM, LOCATION [facility] INDICATION: M95.2: Acquired skull defect ADDITIONAL CLINICAL INFORMATION: Ordering Provider Reason For Exam: s/p cranioplasty Technologist Note: Additional: EXAMINATION: Computed tomography (CT) of the head without contrast TECHNIQUE: CT of the head was performed without contrast according to standard protocol. COMPARISON: 12/21/2022. FINDINGS: There has been interval right cranioplasty with replacement of thenative bone flap. Some pneumocephalus and a small extra-axial fluid/hemorrhage collection are noted underlying the craniotomy site. There is a extracranial subgaleal fluid collection measuring approximately 1 cm in maximal thickness, which may represent surgical seroma versus a pseudomeningocele. Again demonstrated is a developing encephalomalacia in the rightcerebral hemisphere and the right basal ganglia, consistent with an evolvingchronic right MCA infarct. There is mild cerebral volume loss with associated ex vacuo ventricular dilatation. The basal cisterns are patent. No masseffect or midline shift is seen. The visualized portions of the orbits, paranasal sinuses, and mastoids appear normal. IMPRESSION: 1. Postsurgical changes of interval right cranioplasty with placement of the saginaw chippewa bone flap. A 1 cm extracranial/subgaleal fluid collection may represent surgical seroma versus a pseudomeningocele cell. 2. Further evolution of a chronic right MCA infarct. > Interpreting Provider: Lonnie Rae MD on 01/11/2023 12:56 PM Jazz Martin MD CT ORDERABLES * (ABNORMAL) PTT [facility] (01/10/2023 11:30 AM CDT) APTT 22.2(L) 23.0 - 38.4 Seconds 01/10/2023 12:20 PM T [facility] Comment:Suggested therapeuti c range for full dose I.V. unfractionated heparin therapy for venous thromboembolism is 71 to 109 seconds. Blood BLOOD SPECIMEN / Unknown Venipuncture / Unknown 01/10/2023 11:30 AM CDT 01/10/2023 11:56 AM CDT Jazz Martin MD LAB - COAGULATION OR DERABLES Performing Organization Address [facility] Co de Phone Number [address] [address], [facility] [phone] * (ABNORMAL) CBC W AUTO DIFFERENTIAL (01/10/2023 11:30 AM CDT) Pathologist [facility] WBC 9.0 3.5 - 10.5 10? 3 /uL 01/10/2023 12:07 PM [facility] RBC 4.99 3.80 - 5.20 10? 6 /uL 01/10/2023 12:07 PM [facility] Hemoglobin 14.7 12.0 - 15.6 g/dL 01/10/2023 12:07 PM [facility] Hematocrit 45.6(H) 35.0 - 45.0 % 01/10/2023 12:07 PM [facility] MCV 91.4 80.7 - 98.3 fL 01/10/2023 12:07 PM [facility] MCH 29.5 26.7 - 34.0 pg 01/10/2023 12:07 PM [facility] MCHC 32.2 30.8 - 35.9 g/dL 01/10/2023 12:07 PM [facility] RDW-SD 52.7(H) 36.0 - 50.0 fL 01/10/2023 12:07 PM [facility] RDW-CV 15.8(H) 11.2 - 14.8 % 01/10/2023 12:07 PM [facility] Platelet Count 320 150 - 400 10? 3 /uL 01/10/2023 12:07 PM [facility] MPV 10.1 9.4 - 12.9 fL 01/10/2023 12:07 PM [facility] nRBC Absolute 0.00 0 10? 3 /uL 01/10/2023 12:07 PM [facility] nRBC Auto 0.0 0 /100 WBC 01/10/2023 12:07 PM [facility] Neutrophils % 70.2(H) 35.0 - 70.0 % 01/10/2023 12:07 PM [facility] Lymphocytes % 21.9 20.0 - 43.0 % 01/10/2023 12:07 PM [facility] Monocytes % 6.6 5.0 - 13.0 % 01/10/2023 12:07 PM [facility] Eosinophils % 0.6 0.0 - 6.0 % 01/10/2023 12:07 PM [facility] Basophil % 0.4 0.0 - 2.0 % 01/10/2023 12:07 PM [facility] Neutrophils Absolute 6.33 1.60 - 7.00 10? 3 /uL 01/10/2023 12:07 PM [facility] Lymphocyte Absolute 1.98 1.10 - 3.90 10? 3 /uL 01/10/2023 12:07 PM [facility] Monocytes Absolute 0.60 0.26 - 1.07 10? 3 /uL 01/10/2023 12:07 PM [facility] Eosinophils Absolute 0.05 0.00 - 0.47 10? 3 /uL 01/10/2023 12:07 PM [facility] Basophils Absolute 0.04 0.00 - 0.08 10? 3 /uL 01/10/2023 12:07 PM [facility] Immature Granulocytes % 0.3 0.0 - 1.0 % 01/10/2023 12:07 PM CDT [facility] Immature Granulocytes Absolute 0.03 01/10/2023 12:07 PM CDT [facility] Blood BLOOD SPECIMEN / Unknown Venipuncture / Unknown 01/10/2023 11:30 AM CDT 01/10/2023 11:59 AM CDT Ambrocio Leal II, MD LAB - HEMATOLOGY OR DERABLES [facility] [address] [place] [address], [facility] [phone] * TYPE + SCREEN PANEL (01/10/2023 11:30 AM CDT) Antibody Screen NEG 12:47 PM CDT [facility] ABO Rh B POS 01/10/2023 12:47 PM CDT [facility] Blood Bank BLOOD SPECIMEN / Unknown Venipuncture / Unknown 01/10/2023 11:30 AM CDT 01/10/2023 11:46 AM CDT Galina Torres APRN-[employer] LAB - BLOOD B ANK ORDERABLES Performing Organization Address City/[facility]/ZIP Co de Phone Number [facility] [address] [place] [address], [facility] [phone] * (ABNORMAL) PT-INR [facility] (01/10/2023 11:30 AM CDT) PT 11.9(L) 12.1 - 14.8 Seconds 01/10/2023 12:20 PM CDT [facility] INR 0.9 See Comment 01/10/2023 12:20 PM CDT [facility] Comment:The suggested therap eutic range for standard coumadin (warfarin) therapy is an INR of 2.0-3.0. For high-risk patients (Mechanical Mitral Valve Prosthesis, etc.), the suggested prophylactic therapeutic range is an INR of 2.5-3.5. Blood BLOOD SPECIMEN / Unknown Venipuncture / Unknown 01/10/2023 11:30 AM CDT 01/10/2023 11:56 AM CDT Galina Torres CHANNEL SALES DIRECTOR-[facility] LAB - COAGULA TION ORDERABLES [address] [address], [place] [phone] * HCG URINE QUALITATIVE - POCT (IP) INTERFACED (01/10/2023 10:30 AM CDT) HCG Qual Urine Negative Negative 01/10/2023 10:36 AM CDT [facility] Urine URINE / Unknown 01/10/2023 1 0:30 AM CDT 01/10/2023 10:36 AM CDT Jazz Martin MD LAB - POINT OF CARE ORDERABLES Performing Organization Address City/[facility]/ZIP Co de Phone Number [address] [address], [place] [phone] * HCG URINE QUAL POCT NOTIFICATION (01/10/2023 10:09 AM CDT) Comment Notification Label Only - See Separate Report 01/10/2023 11:30 AM CDT [facility] Urine URINE / Unknown 01/10/2023 1 0:09 AM CDT 01/10/2023 10:10 AM CDT Galina Torres CHANNEL SALES DIRECTOR-[employer] LAB - URINALY SIS ORDERABLES Performing Organization Address City/[facility]/ZIP Co de Phone Number [address] [address], [place] [phone] documented in this encounter Visit Diagnoses Diagnosis Acquired skull defect- Primary Other specified acquired deformity of head Pre-op evaluation Preoperative examination, unspecified Acquired skull defect Other specified acquired deformity of head Weakness Other malaise and fatigue Right middle cerebral artery stroke (HCC) Unspecified cerebral artery occlusion with cerebral infarction Nihss score 9 Migraine Left-sided sensory deficit present Other general symptoms Hypertension Unspecified essential hypertension Hemianopsia 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 GERD (gastroesophageal reflux disease) Esophageal reflux Gaze palsy Palsy of conjugate gaze documented in this encounter Admitting Diagnoses Diagnosis Acquired skull defect Other specified acquired deformity of head documented in this encounter Administered Medications Inactive Administered Medications - up to 3 most recent administrations Medication Order [facility] Action Action Date Dose Rate Site 0.9% NaCl infusion at 75 mL/hr, Intravenous, CONTINUOUS, Starting on Sun01/10/23 at 1515, Until Sun01/11/23 at 1422 Current Rate 01/11/2023 6:00 AM CDT 75 mL/hr $ New Bag/Syringe 01/11/2023 4:28 AM CDT 75 mL/ hr Current Rate 01/11/2023 4:00 AM CDT 75 mL/hr 0.9% NaCl injection 1-10 mL 1-10 mL, Intracatheter, PRN, Other, peripheral line flush, Starting on Sun01/10/23 at 1439, Until Sun01/11/23 at 1727, Flush peripheral IV catheter with 1-10 mL of normal saline before and after medications and prn to clear blood from the line or to verify patency. 0.9% NaCl injection 3 mL 3 mL, Intracatheter, EVERY 8 HOURS, First dose on Sun01/10/23 at 1515, Until Discontinued, Flush peripheral IV catheter with 3 mL of normal saline every 8 hours. $ Given 01/11/2023 5:23 AM CDT 3 mL $ Given 01/10/2023 9:23 PM CDT 3 mL $ Given 01/10/2023 4:02 PM CDT 3 mL acetaminophen (Tylenol) tablet 650 mg 650 mg, Oral, EVERY 6 HOURS PRN, Mild Pain, Starting on Sun01/10/23 at 1442, Until Katy 01/11/23 at 1727, Patient preference for lesser PRN pain meds may be honored when the patient requests a less strong medication, a lower dose, or a less intrusive route of administration when the lesser drug, dose and route have been ordered for the patient. This patient request must be documented in the MAR. baclofen (Lioresal) tablet 5 mg 5 mg, Oral, AT BEDTIME, First dose on Sun01/10/23 at 2100, Until Discontinued $ Given 01/10/2023 9:22 PM CDT 5 mg bethanechol (Urecholine) tablet 25 mg 25 mg, Oral, 3 TIMES DAILY, First dose on Sun01/10/23 at 2100, Until Discontinued $ Given 01/11/2023 2:41 PM CDT 25 m g $ Given 01/11/2023 8:01 AM CDT 25 mg $ Given 01/10/2023 9:45 PM CDT 25 mg bisacodyl (Dulcolax) suppository 10 mg 10 mg, Rectal, ONCE PRN, Constipation, no BM 4 hours MOM/Magnesium hydroxide, 1 dose, Starting on Sun01/10/23 at 1443, Until Katy 01/11/23 at 1727 chlorhexidine (Peridex) 0.12 % oral solution 15 mL 15 mL, Mouth/Throat, 2 TIMES DAILY, First dose on Sun01/10/23 at 1445, Until Discontinued, Swab oral cavity. . WASTE DISPOSAL INSTRUCTIONS: Black Bin Disposal required. $ Given 01/10/2023 9:21 PM CDT 15 mL cyclobenzaprine (Flexeril) tablet 5 mg 5 mg, Oral, AT BEDTIME, First dose on Sun01/10/23 at 2100, Until Discontinued $ Given 01/10/2023 9:22 PM CDT 5 mg gabapentin (Neurontin) capsule 300 mg 300 mg, Oral, 3 TIMES DAILY, First dose on Sun01/10/23 at 1515, Until Discontinued $ Given 01/11/2023 2:41 PM CDT 300 mg $ Given 01/11/2023 7:58 AM CDT 300 mg $ Given 01/10/2023 9:23 PM CDT 300 mg hydrALAZINE (Apresoline) injection 10 mg 10 mg, Intravenous, EVERY 30 MIN PRN, Hypertension, SBP greater than 150 mmHg, sbp > 150, Starting on Sun01/10/23 at 1442, Until Katy 01/11/23 at 1727, For SBP greater than 150 if HR less than 70. HYDROmorphone (Dilaudid) injection 0.5 mg 0.5 mg, Intravenous, EVERY 10 MIN PRN, Severe Pain, 4 doses, Starting on Sun01/10/23 at 1513, Until Sun01/10/23 at 1540, Maximum total of 4 doses If patient reaches max total dose, please consult anesthesiologist prior to further administration of pain meds. Hold pain meds if there are signs of hypoventilation. Patient preference for lesser PRN pain meds may be honored when the patient requests a less strong medication, a lower dose, or a less intrusive route of administration when the lesser drug, dose and route have been ordered for the patient. This patient request must be documented in the MAR., PACU $ Given 01/10/2023 3:29 PM CDT 0.5 mg $ Given 01/10/2023 3:15 PM CDT 0.5 mg labetalol (Normodyne; Trandate) injection 10 mg 10 mg, Intravenous, EVERY 15 MIN PRN, Hypertension, SBP greater than 150 mmHg, sbp > 150, Starting on Sun01/10/23 at 1442, Until Katy 01/11/23 at 1727, For SBP greater than 150 if HR greater than or equal to 70. lactated ringers infusion at 20 mL/hr, Intravenous, PRE-OP CONTINUOUS, Starting on Sun01/10/23 at 1015, Until Sun01/10/23 at 1444, Pre-op Rate Change 01/10/2023 11:57 AM CDT 20 mL/hr $ New Bag/Syringe 01/10/2023 11:41 AM CDT 20 mL /hr levETIRAcetam (Keppra) injection 500 mg 500 mg, Intravenous, EVERY 12 HOURS, First dose on Sun01/10/23 at 2300, Until Discontinued, Administer straight drug (undiluted) over two minutes $ Given 01/11/2023 7:56 AM CDT 500 mg $ Given 01/10/2023 10:50 PM CDT 500 mg LORazepam (Ativan) injection 2 mg 2 mg, Intravenous, EVERY 2 MINUTES PRN, Seizures, GTC seizures, 3 doses, Starting on Sun01/10/23 at 1518, Until Katy 01/11/23 at 1727 magnesium hydroxide (Milk Of Magnesia) suspension 30 mL 30 mL, Oral, ONCE PRN, Constipation, no BM in 72 hours, 1 dose, Starting on Sun01/10/23 at 1443, Until Katy 01/11/23 at 1727, Shake well before using. metoprolol tartrate IR (Lopressor) tablet 25 mg 25 mg, Oral, 2 TIMES DAILY, First dose on Sun01/10/23 at 2100, Until Discontinued $ Given 01/11/2023 7:58 AM CDT 25 m g $ Given 01/10/2023 9:21 PM CDT 25 mg morphine injection 2 mg 2 mg, Intravenous, EVERY 3 HOURS PRN, Severe Pain, Starting on Sun01/10/23 at 1657, Until Katy 01/11/23 at 1727, If oral route is unavailable. Patient preference for lesser PRN pain meds may be honored when the patient requests a less strong medication, a lower dose, or a less intrusive route of administration when the lesser drug, dose and route have been ordered for the patient. This patient request must be documented in the MAR. $ Given 01/11/2023 7:54 AM CDT 2 mg $ Given 01/11/2023 4:20 AM CDT 2 mg $ Given 01/10/2023 10:49 PM CDT 2 mg multiple vitamins with minerals tablet 1 tablet 1 tablet, Oral, DAILY, First dose on Sun01/10/23 at 1515, Until Discontinued, . WASTE DISPOSAL INSTRUCTIONS: Black Bin Disposal required. $ Given 01/11/2023 7:58 AM CDT 1 tablet $ Given 01/10/2023 4:56 PM CDT 1 tablet naloxone (Narcan) injection 0.2 mg 0.2 mg, Intravenous, PRN, Other, If unable to arouse patient or if respiratory depression is present., 4 doses, Starting on Sun01/10/23 at 1439, Until Katy 01/11/23 at 1727, Mix 0.4 mg Naloxone in 9 mL Normal Saline for slow IV push. Administer dilute Naloxone solution IV very slowly (5 mL over 2 minutes) while observing the patient response and titrating to effect. If no response, call Rapid Response, continue IV Naloxone at the same rate up to a total of 0.8 mg or 20 mL of diluted Naloxone, and notify physician immediately. ondansetron (disintegrating) (Zofran ODT) tablet 4 mg 4 mg, Oral, EVERY 6 HOURS PRN, Nausea/Vomiting, Starting on Sun01/10/23 at 1443, Until Katy 01/11/23 at 1727, Dissolved orally on tongue ondansetron (Zofran) injection 4 mg 4 mg, Intravenous, EVERY 6 HOURS PRN, Nausea/Vomiting, Starting on Sun01/10/23 at 1443, Until Katy 01/11/23 at 1727, Administer IV if patient is NPO, actively vomiting, or unable to swallow. oxyCODONE (immediate release) (Roxicodone) tablet 5 mg 5 mg, Oral, EVERY 4 HOURS PRN, Moderate Pain, Starting on Sun01/10/23 at 1656, Until Katy 01/11/23 at 1727, Patient preference for lesser PRN pain meds may be honored when the patient requests a less strong medication, a lower dose, or a less intrusive route of administration when the lesser drug, dose and route have been ordered for the patient. This patient request must be documented in the MAR., Allow a repeat dose for severe pain? No $ Given 01/11/2023 2:4 1 PM CDT 5 mg $ Given 01/11/2023 11:03 AM CDT 5 mg $ Given 01/11/2023 6:57 AM CDT 5 mg oxyCODONE-acetaminophen (Percocet) 5-325 MG tablet 1 tablet 1 tablet, Oral, EVERY 4 HOURS PRN, Moderate Pain, Starting on Sun01/10/23 at 1442, Until Sun01/10/23 at 1657, Not to exceed 4000 mg of acetaminophen per day from all sources combined Patient preference for lesser PRN pain meds may be honored when the patient requests a less strong medication, a lower dose, or a less intrusive route of administration when the lesser drug, dose and route have been ordered for the patient. This patient request must be documented in the MAR. $ Given 01/10/2023 4:01 PM CDT 1 tablet pantoprazole EC (Protonix) tablet 40 mg 40 mg, Oral, DAILY, First dose on Sun01/10/23 at 1515, Until Discontinued, Do not crush, chew, or cut in half. $ Given 01/11/2023 7:58 AM CDT 40 mg $ Given 01/10/2023 4:56 PM CDT 40 mg polyethylene glycol 3350 (Miralax) packet 17 g 17 g, Oral, DAILY, First dose on Sun01/10/23 at 1515, Until Discontinued, Hold for loose stool or greater than 3 BM/day $ Given 01/11/2023 7:58 AM CDT 17 g senna (Senokot) tablet 8.6 mg 8.6 mg, Oral, DAILY, First dose on Sun01/10/23 at 1515, Until Discontinued $ Given 01/11/2023 7:58 AM CDT 8.6 mg $ Given 01/10/2023 4:56 PM CDT 8.6 mg simethicone (Mylicon) chew tablet 80 mg 80 mg, Oral, EVERY 6 HOURS PRN, Gas Pain, Starting on Sun01/10/23 at 1443, Until Katy 01/11/23 at 1727 sodium phosphate rectal (Fleet) enema 133 mL 133 mL (1 enema), Rectal, ONCE PRN, Constipation, no BM 4 hours after bisacodyl suppository, 1 dose, Starting on Sun01/10/23 at 1443, Until Katy 01/11/23 at 1727 tamsulosin (Flomax) capsule 0.4 mg 0.4 mg, Oral, DAILY, First dose on Sun01/10/23 at 1515, Until Discontinued, At the same time every day after a meal. Do not crush or chew. May open capsule and administer contents per tube but do not crush, chew, or dissolve granules. $ Given 01/11/2023 7:58 AM CDT 0.4 mg $ Given 01/10/2023 4:56 PM CDT 0.4 mg verapamil CR (Isoptin-SR) tablet 120 mg 120 mg, Oral, AT BEDTIME, First dose on Sun01/10/23 at 2100, Until Discontinued, Do not crush or chew. $ Given 01/10/2023 9:29 PM CDT 120 mg vitamin D3 (Cholecalciferol) 25 MCG (1000 UNITS) tablet 2,000 Units 2,000 Units, Oral, DAILY, First dose on Sun01/10/23 at 1515, Until Discontinued, 1000 units = 25 mcg $ Given 01/11/2023 7:58 AM CDT 2,000 Unit s $ Given 01/10/2023 9:29 PM CDT 2,000 Units documented in this encounter Active and Recently Administered Medications Times are shown in CDT. Scheduled Medication Order 01/09/2023 01/10/2023 01/11/2023 0.9% NaCl injection 3 mL(Linked Group 1) 3 mL, Intracatheter, EVERY 8 HOURS, First dose on Sun01/10/23 at 1515, Until Discontinued, Flush peripheral IV catheter with 3 mL of normal saline every 8 hours. 1602 ($ Given - Provider: Dixie Fuentes RN)212 ($ Given - Provider: Krupa Ortiz RN) 0523 ($ Given - Provider: Krupa Ortiz RN)1307 (Not Administered - Provider: Umu Cristina RN - Reason: IV Currently Infusing) baclofen (Lioresal) tablet 5 mg 5 mg, Oral, AT BEDTIME, First dose on Sun01/10/23 at 2100, Until Discontinued 2121 ($ Given - Provider: Krupa Ortiz RN) bethanechol (Urecholine) tablet 25 mg 25 mg, Oral, 3 TIMES DAILY, First dose on Sun01/10/23 at 2100, Until Discontinued 2144 ($ Given - Provider: Krupa Ortiz RN) 0801 ($ Given - Provider: Umu Cristina RN)1441 ($ Given - Provider: Umu Cristina RN) chlorhexidine (Peridex) 0.12 % oral solution 15 mL (CANCELED) 15 mL, Mouth/Throat, 2 TIMES DAILY, First dose on Sun01/10/23 at 1445, Until Discontinued, Swab oral cavity. . WASTE DISPOSAL INSTRUCTIONS: Black Bin Disposal required. 1636 (Not Administered - Provider: Dixie Fuentes RN - Reason: Refused-Patient)2120 ($ Given - Provider: Krupa Ortiz RN) 0758 (Not Administered - Provider: Umu Cristina RN - Reason: Patient Condition) cyclobenzaprine (Flexeril) tablet 5 mg 5 mg, Oral, AT BEDTIME, First dose on Sun01/10/23 at 2100, Until Discontinued 2121 ($ Given - Provider: Krupa Ortiz RN) gabapentin (Neurontin) capsule 300 mg 300 mg, Oral, 3 TIMES DAILY, First dose on Sun01/10/23 at 1515, Until Discontinued 165 ($ Given - Provider: Dixie Fuentes RN)212 ($ Given - Provider: Krupa Ortiz RN) 0758 ($ Given - Provider: Umu Cristina RN)1441 ($ Given - Provider: Umu Cristina RN) levETIRAcetam (Keppra) injection 500 mg 500 mg, Intravenous, EVERY 12 HOURS, First dose on Sun01/10/23 at 2300, Until Discontinued, Administer straight drug (undiluted) over two minutes 2250 ($ Given - Provider: Krupa Ortiz RN) 0756 ($ Given - Provider: Umu Cristina, AMBROSE) metoprolol tartrate IR (Lopressor) tablet 25 mg 25 mg, Oral, 2 TIMES DAILY, First dose on Sun01/10/23 at 2100, Until Discontinued 2120 ($ Given - Provider: Krupa Ortiz RN) 0758 ($ Given - Provider: Umu Cristina, AMBROSE) multiple vitamins with minerals tablet 1 tablet 1 tablet, Oral, DAILY, First dose on Sun01/10/23 at 1515, Until Discontinued, . WASTE DISPOSAL INSTRUCTIONS: Black Bin Disposal required. 1655 ($ Given - Provider: Dixie Fuentes RN) 0758 ($ Given - Provider: Umu Cristina, AMBROSE) pantoprazole EC (Protonix) tablet 40 mg 40 mg, Oral, DAILY, First dose on Sun01/10/23 at 1515, Until Discontinued, Do not crush, chew, or cut in half. 165 ($ Given - Provider: Dixie Fuentes RN) 0758 ($ Given - Provider: Umu Cristina RN) polyethylene glycol 3350 (Miralax) packet 17 g 17 g, Oral, DAILY, First dose on Sun01/10/23 at 1515, Until Discontinued, Hold for loose stool or greater than 3 BM/day 164 (Not Administered - Provider: Dixie Fuentes RN - Reason: Refused-Patient) 0758 ($ Given - Provider: Umu Cristina RN) senna (Senokot) tablet 8.6 mg 8.6 mg, Oral, DAILY, First dose on Sun01/10/23 at 1515, Until Discontinued 1655 ($ Given - Provider: Dixie Fuentes RN) 0758 ($ Given - Provider: Umu Cristina RN) tamsulosin (Flomax) capsule 0.4 mg 0.4 mg, Oral, DAILY, First dose on Sun01/10/23 at 1515, Until Discontinued, At the same time every day after a meal. Do not crush or chew. May open capsule and administer contents per tube but do not crush, chew, or dissolve granules. 1656 ($ Given - Provider: Dixie Fuentes RN) 0758 ($ Given - Provider: Umu Cristina RN) verapamil CR (Isoptin-SR) tablet 120 mg 120 mg, Oral, AT BEDTIME, First dose on Sun01/10/23 at 2100, Until Discontinued, Do not crush or chew. 212 ($ Given - Provider: Krupa Ortiz RN) vitamin D3 (Cholecalciferol) 25 MCG (1000 UNITS) tablet 2,000 Units 2,000 Units, Oral, DAILY, First dose on Sun01/10/23 at 1515, Until Discontinued, 1000 units = 25 mcg 212 ($ Given - Provider: Krupa Ortiz RN) 075 ($ Given - Provider: Umu Cristina RN) Continuous Medication Order 01/09/2023 01/10/2023 01/11/2023 0.9% NaCl infusion (CANCELED) at 75 mL/hr, Intravenous, CONTINUOUS, Starting on Sun01/10/23 at 1515, Until Katy 01/11/23 at 1422 1656 ($ New Bag/Syringe - Provider: Dixie Fuentes RN) 0000 (Current Rate - Provider: Krupa Ortiz RN)0200 (Current Rate - Provider: Krupa Ortiz RN)0308 (Paused - Provider: Krupa Ortiz RN)0338 (Restarted - Provider: Krupa Ortiz RN)0400 (Current Rate - Provider: Krupa Ortiz RN)0428 (Stopped - Provider: Krupa Ortiz RN)0428 ($ New Bag/Syringe - Provider: Krupa Ortiz RN)0600 (Current Rate - Provider: Krupa Ortiz RN) lactated ringers infusion (CANCELED) at 20 mL/hr, Intravenous, PRE-OP CONTINUOUS, Starting on Sun01/10/23 at 1015, Until Sun01/10/23 at 1444, Pre-op 1141 ($ New Bag/Syringe - Provider: Sylvia Ray RN)1157 (Rate Change - Provider: Lurdes Malave APRN-VETERINARY MEDICINE DOCTOR)1347 (Anesthesia Volume Adjustment - Provider: Lurdes Malave, AMANDA-VETERINARY MEDICINE DOCTOR) PRN Medication Order 01/09/2023 01/10/2023 01/11/2023 0.9% NaCl injection 1-10 mL(Linked Group 1) 1-10 mL, Intracatheter, PRN, Other, peripheral line flush, Starting on Sun01/10/23 at 1439, Until Katy 01/11/23 at 1727, Flush peripheral IV catheter with 1-10 mL of normal saline before and after medications and prn to clear blood from the line or to verify patency. acetaminophen (Tylenol) tablet 650 mg 650 mg, Oral, EVERY 6 HOURS PRN, Mild Pain, Starting on Sun01/10/23 at 1442, Until Katy 01/11/23 at 1727, Patient preference for lesser PRN pain meds may be honored when the patient requests a less strong medication, a lower dose, or a less intrusive route of administration when the lesser drug, dose and route have been ordered for the patient. This patient request must be documented in the MAR. bacitracin topical ointment (CANCELED) PRN, Starting on Sun01/10/23 at 1401, Until Sun01/10/23 at 1445, Intra-op 1401 ($ Given - Provider: Jarvis Gagnon MD - Comment: delivered to sterile field) bisacodyl (Dulcolax) suppository 10 mg 10 mg, Rectal, ONCE PRN, Constipation, no BM 4 hours MOM/Magnesium hydroxide, 1 dose, Starting on Sun01/10/23 at 1443, Until Katy 01/11/23 at 1727 hydrALAZINE (Apresoline) injection 10 mg 10 mg, Intravenous, EVERY 30 MIN PRN, Hypertension, SBP greater than 150 mmHg, sbp > 150, Starting on Sun01/10/23 at 1442, Until Katy 01/11/23 at 1727, For SBP greater than 150 if HR less than 70. HYDROmorphone (Dilaudid) injection 0.5 mg (CANCELED) 0.5 mg, Intravenous, EVERY 10 MIN PRN, Severe Pain, 4 doses, Starting on Sun01/10/23 at 1513, Until Sun01/10/23 at 1540, Maximum total of 4 doses If patient reaches max total dose, please consult anesthesiologist prior to further administration of pain meds. Hold pain meds if there are signs of hypoventilation. Patient preference for lesser PRN pain meds may be honored when the patient requests a less strong medication, a lower dose, or a less intrusive route of administration when the lesser drug, dose and route have been ordered for the patient. This patient request must be documented in the MAR., PACU 1515 ($ Given - Provider: Mely Cabrera RN)1529 ($ Given - Provider: Mely Cabrera RN) labetalol (Normodyne; Trandate) injection 10 mg 10 mg, Intravenous, EVERY 15 MIN PRN, Hypertension, SBP greater than 150 mmHg, sbp > 150, Starting on Sun01/10/23 at 1442, Until Katy 01/11/23 at 1727, For SBP greater than 150 if HR greater than or equal to 70. lidocaine 1% (Xylocaine) - EPINEPHrine 1:100,000 injection (CANCELED) PRN, Starting on Sun01/10/23 at 1254, Until Sun01/10/23 at 1445, Intra-op 1254 ($ Given - Provider: Jarvis Gagnon MD) LORazepam (Ativan) injection 2 mg 2 mg, Intravenous, EVERY 2 MINUTES PRN, Seizures, GTC seizures, 3 doses, Starting on Sun01/10/23 at 1518, Until Katy 01/11/23 at 1727 magnesium hydroxide (Milk Of Magnesia) suspension 30 mL 30 mL, Oral, ONCE PRN, Constipation, no BM in 72 hours, 1 dose, Starting on Sun01/10/23 at 1443, Until Katy 01/11/23 at 1727, Shake well before using. morphine injection 2 mg(Linked Group 2) 2 mg, Intravenous, EVERY 3 HOURS PRN, Severe Pain, Starting on Sun01/10/23 at 1657, Until Katy 01/11/23 at 1727, If oral route is unavailable. Patient preference for lesser PRN pain meds may be honored when the patient requests a less strong medication, a lower dose, or a less intrusive route of administration when the lesser drug, dose and route have been ordered for the patient. This patient request must be documented in the MAR. 1701 ($ Given - Provider: Dixie Fuentes RN)2249 ($ Given - Provider: Krupa Ortiz RN) 0420 ($ Given - Provider: Krupa Oritz RN)0754 ($ Given - Provider: Umu Cristina RN) naloxone (Narcan) injection 0.2 mg 0.2 mg, Intravenous, PRN, Other, If unable to arouse patient or if respiratory depression is present., 4 doses, Starting on Sun01/10/23 at 1439, Until Katy 01/11/23 at 1727, Mix 0.4 mg Naloxone in 9 mL Normal Saline for slow IV push. Administer dilute Naloxone solution IV very slowly (5 mL over 2 minutes) while observing the patient response and titrating to effect. If no response, call Rapid Response, continue IV Naloxone at the same rate up to a total of 0.8 mg or 20 mL of diluted Naloxone, and notify physician immediately. ondansetron (disintegrating) (Zofran ODT) tablet 4 mg(Linked Group 3) 4 mg, Oral, EVERY 6 HOURS PRN, Nausea/Vomiting, Starting on Sun01/10/23 at 1443, Until Katy 01/11/23 at 1727, Dissolved orally on tongue ondansetron (Zofran) injection 4 mg(Linked Group 3) 4 mg, Intravenous, EVERY 6 HOURS PRN, Nausea/Vomiting, Starting on Sun01/10/23 at 1443, Until Katy 01/11/23 at 1727, Administer IV if patient is NPO, actively vomiting, or unable to swallow. oxyCODONE (immediate release) (Roxicodone) tablet 5 mg 5 mg, Oral, EVERY 4 HOURS PRN, Moderate Pain, Starting on Sun01/10/23 at 1656, Until Katy 01/11/23 at 1727, Patient preference for lesser PRN pain meds may be honored when the patient requests a less strong medication, a lower dose, or a less intrusive route of administration when the lesser drug, dose and route have been ordered for the patient. This patient request must be documented in the MAR., Allow a repeat dose for severe pain? No 8058 ($ Given - Provider: Krupa Ortiz RN) 0256 ($ Given - Provider: Krupa Ortiz RN)0657 ($ Given - Provider: Krupa Ortiz RN)1103 ($ Given - Provider: Umu Cristina RN)1441 ($ Given - Provider: Umu Cristina RN) oxyCODONE-acetaminophen (Percocet) 5-325 MG tablet 1 tablet (CANCELED) 1 tablet, Oral, EVERY 4 HOURS PRN, Moderate Pain, Starting on Sun01/10/23 at 1442, Until Sun01/10/23 at 1657, Not to exceed 4000 mg of acetaminophen per day from all sources combined Patient preference for lesser PRN pain meds may be honored when the patient requests a less strong medication, a lower dose, or a less intrusive route of administration when the lesser drug, dose and route have been ordered for the patient. This patient request must be documented in the 160 ($ Given - Provider: Dixie Fuentes RN) simethicone (Mylicon) chew tablet 80 mg 80 mg, Oral, EVERY 6 HOURS PRN, Gas Pain, Starting on Sun01/10/23 at 1443, Until Katy 01/11/23 at 1727 sodium phosphate rectal (Fleet) enema 133 mL 133 mL (1 enema), Rectal, ONCE PRN, Constipation, no BM 4 hours after bisacodyl suppository, 1 dose, Starting on Sun01/10/23 at 1443, Until Katy 01/11/23 at 1727 Linked Groups Order Group 1: SALINE LOCK, INSERT AND MAINTAIN (CANCELED) Routine, CONTINUOUS, Starting on Sun01/10/23 at 1445, Until Specified, New collection And 0.9% NaCl injection 3 mLJump to med 3 mL, Intracatheter, EVERY 8 HOURS, First dose on Sun01/10/23 at 1515, Until Discontinued, Flush peripheral IV catheter with 3 mL of normal saline every 8 hours. And 0.9% NaCl injection 1-10 mLJump to med 1-10 mL, Intracatheter, PRN, Other, peripheral line flush, Starting on Sun01/10/23 at 1439, Until Katy 01/11/23 at 1727, Flush peripheral IV catheter with 1-10 mL of normal saline before and after medications and prn to clear blood from the line or to verify patency. Group 2: morphine injection 2 mgJump to med 2 mg, Intravenous, EVERY 3 HOURS PRN, Severe Pain, Starting on Sun01/10/23 at 1657, Until Katy 01/11/23 at 1727, If oral route is unavailable. Patient preference for lesser PRN pain meds may be honored when the patient requests a less strong medication, a lower dose, or a less intrusive route of administration when the lesser drug, dose and route have been ordered for the patient. This patient request must be documented in the MAR. Group 3: ondansetron (disintegrating) (Zofran ODT) tablet 4 mgJump to med 4 mg, Oral, EVERY 6 HOURS PRN, Nausea/Vomiting, Starting on Sun01/10/23 at 1443, Until Katy 01/11/23 at 1727, Dissolved orally on tongue Or ondansetron (Zofran) injection 4 mgJump to med 4 mg, Intravenous, EVERY 6 HOURS PRN, Nausea/Vomiting, Starting on Sun01/10/23 at 1443, Until Katy 01/11/23 at 1727, Administer IV if patient is NPO, actively vomiting, or unable to swallow. documented in this encounter Care Teams Sleeping Car Porter Relationship Specialty Start Date End Date Jean Joy MD PCP - OBGYN 12/27/07 Jaden Thakur DO [address] [place] [address] PCP - Attributed-[facility] 09/10/19 06/28/23 Jaden Thakur DO [address] [place] [address] PCP - General Family Medicine Geriatric Medicine 01/05/23 Arlyn Hernandez, AMBROSE Post Acute Research Agricultural EngineerYarn Spooler 11/21/22 Doreen Aviles Care Coordination Specialist Care Management 11/30/22 01/18/23 documented as of this encounter
--- OUTSIDE RECORDS SUMMARY | 2024-03-19 20:34 | XMS_ITS | Encounter Summary ---
Author Organization [facility] Address [address] [place] [address] Care Team Providers Care Storm Sash Maker Name Role Phone Jean Joy MD Unavailable Jaden Thakur DO Unavailable [phone] Arlyn Hernandez RN Unavailable Doreen Aviles Unavailable Jaden Thakur DO Primary Care Provider + Reason for Visit * Reason Onset Date Comments Medication Issue 01/09/2023 Encounter Details Date Type Department Care Team (Late st Contact Info) Description 01/09/2023 Telephone [facility] - Cardiology [address] [facility] [address] [place] [id number] Isidoro Sargent RN Medication Issue Social History Tobacco Use Types Packs/Day Years [...] Recorded Patient Health Questionnaire-2 Score 0 11/15/2022 [facility] [place] [facility] Occupat ional [facility] - Occupational Stress [...] slept in a halfway (including now)? No 01/10/2023 Sex and Gender [...] No 01/05/2023 documented as of this encounter Miscellaneous Notes * Telephone Encounter - Isidoro Sargent RN - 01/09/2023 9:10 AM CDT Message from Dr Michael that patient can stop warfarin and not going to restart for now. Spouse verbalized understanding. documented in this encounter Plan of Treatment Not on file documented as of this encounter Visit Diagnoses Not on filedocumented in this encounter Care Teams Storm Sash Maker Relationship Specialty Start Date End Date Jean Joy MD PCP - OBGYN 12/27/07 Jaden Thakur DO [address] [place] [address] PCP - Attributed-[facility] STL 09/10/19 06/28/23 Jaden Thakur DO [address] [place] [address] PCP - General Family Medicine Geriatric Medicine 01/05/23 Arlyn Hernandez RN Post Acute Process Project EngineerMotel Front Desk Attendant 11/21/22 Doreen Aviles Care Coordination Specialist Care Management 11/30/22 01/18/23 documented as of this encounter
--- OUTSIDE RECORDS SUMMARY | 2024-03-19 20:34 | XMS_ITS | Encounter Summary ---
Author Organization [facility] Address [address] [facility] [place] [address] Care Team Providers Care Petroleum Engineer Name Role Phone Jean Joy MD Unavailable Jaden Thakur DO Unavailable Jaden Thakur DO Primary Care Provider + Reason for Referral * Radiology Services (Routine) - Closed Specialty Diagnoses / Procedures Referred By Contac t Referred To Contact Mammography Diagnoses Encounter for screening mammogram for breast cancer Procedures MAMMO BILAT SCREENING W Jaden Francisco DO [address] [place] [address] [facility] [place] [address] [place] [id number] Referral ID Status Reason Start Date Expiration Date Visits Re quested Visits Authorized [id number] Closed 01/23/2023 01/23/2024 1 1 MP PEELING MACHINE OPERATOR Reason for Visit * Radiology Services (Routine) - Closed Specialty Diagnoses / Procedures Referred By Contac t Referred To Contact Mammography Diagnoses Encounter for screening mammogram for breast cancer Procedures MAMMO BILAT SCREENING W Jaden Francisco DO [address] [place] [address] [facility] [address] [place] [address] Referral ID Status Reason Start Date Expiration Date Visits Re quested Visits Authorized [id number] Closed 01/23/2023 01/23/2024 1 1 Encounter Details Date Type Department Care Team (Latest Contact Info) Description 02/15/2023 12:54 PM SHRIMP PEELING MACHINE OPERATOR - 02/15/2023 11:59 PM SHRIMP PEELING MACHINE OPERATOR Hospital Encounter [facility] [address] [place] [address] Jaden Thakur, [address] [place] [address] Discharge Disposition: Home or Self Care Social [...] Recorded Patient Health Questionnaire-2 Score 0 11/15/2022 [facility] - Occupational Stress [...] place to sleep or slept in a nursing home (including now)? No 01/10/2023 Sex and Gender [...] 12/14/2022 DULoxetine (Cymbalta) 60 MG capsule 02/15/2023 hydrOXYzine HCl (Atarax) 25 MG tablet Take [...] by mouth at bedtime PLEASE REQUEST ALL FUTURE REFILLS OF THIS MEDICATION FROM YOUR PRIMARY CARE DOCTOR. 90 tablet 1 01/15/2023 04/05/2023 bethanechol (Urecholine) 25 MG tablet Take 1 (one) tablet by mouth 3 times daily 12/14/2022 04/05/2023 diclofenac sodium (Voltaren) 1 % gelIndications:Greate r trochanteric bursitis of left hip,It band syndrome, left Apply 2 (two) g to affected area 4 times daily 100 g 5 02/15/2023 04/05/2023 gabapentin (Neurontin) 300 MG capsule Take 1 (one) capsule by mouth 3 times daily PLEASE REQUEST ALL FUTURE REFILLS OF THIS MEDICATION FROM YOUR PRIMARY CARE DOCTOR. 270 capsule 1 01/15/2023 04/30/2023 levETIRAcetam (Keppra) 500 MG tablet Take 1 (one) tablet by mouth 2 times daily 60 tablet 02/15/2023 03/19/2023 nitrofurantoin monohyd macro crystals (Macrobid) 100 MG capsule 02/15/2023 04/05/2023 oxyCODONE, immediate release, (Roxicodone) 5 MG tabletIndications:Acq [...] 12/14/2022 04/05/2023 documented as of this encounter Plan of Treatment Not on file documented as of this encounter Procedures Procedure Name Priority Date/Time Associated Diagnosis Comments MAMMO BILAT SCREENING W LOWELL Routine 02/15/2023 2:00 PM SHRIMP PEELING MACHINE OPERATOR Encounter for screening mammogram for breast cancer documented in this encounter Results * MAMMO BILAT SCREENING W LOWELL (02/15/2023 2:00 PM SHRIMP PEELING MACHINE OPERATOR) Anatomical Region Laterality Modality Breast Bilateral Mammography 02/15/2023 2:00 PM SHRIMP PEELING MACHINE OPERATOR Impressions 02/15/2023 3:51 PM SHRIMP PEELING MACHINE OPERATOR : 1. No mammographic evidence of malignancy [...] screening mammography. For further information, please call [phone]. Patient will be notified of mammography results by lay letter. OVERALL ASSESSMENT: ??BI-RADS CATEGORY 1: NEGATIVE. > Dictated by Tim Major MD (vice president of product marketing). I, Becky Oliveira DO have personally reviewed and interpreted this examination/study. > Interpreting Provider: Becky Oliveira DO on 02/15/2023 3:51 PM Narrative 02/15/2023 3:51 PM SHRIMP PEELING MACHINE OPERATOR EXAMINATIONS: ??BILATERAL DIGITAL SCREENING MAMMOGRAM AND BILATERAL [...] screening mammography. For further information, please call [phone]. COMPARISON: No prior. This is her baseline [...] suspicious calcifications. Jaden Thakur DO MAMMO ORDERABLES documented in this encounter Visit Diagnoses Diagnosis Encounter for screening mammogram for breast cancer documented in this encounter Care Teams Petroleum Engineer Relationship Specialty Start Date End Date Jean Joy MD PCP - OBGYN 12/27/07 Jaden Thakur DO [address] [place] [address] PCP - [facility] 09/10/19 06/28/23 Jaden Thakur DO [address] [place] [address] PCP - General Family Medicine Geriatric Medicine 01/05/23 documented as of this encounter
--- OUTSIDE RECORDS SUMMARY | 2024-03-19 20:34 | XMS_ITS | Encounter Summary ---
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 States she has been having a MOREIRA that has been getting worse over the past few days. Also has chronic L hip pain Pain Hip Encounter Details Date Type Department Care Team (Late st Contact Info) Description 02/03/2023 6:20 PM GAME DESIGNER - 02/03/2023 10:50 PM [facility] Emergency [facility] EMERGENCY DEPARTMENT [address] [place] [id number] Jerald Haley MD [address] [place] [address] Acute intractable headache, unspecified headache type; Left hip pain Discharge Disposition: Home or Self Care Social [...] Reading Time Taken Comments Blood Pressure 131/78 02/03/2023 6:30 PM GAME DESIGNER Pulse 89 02/03/2023 5:32 PM GAME DESIGNER Temperature 36.6 ??C (97.9 ??F) 02/03/2023 5:32 PM CS T Respiratory Rate 18 02/03/2023 5:32 PM GAME DESIGNER Oxygen Saturation 95% 02/03/2023 6:30 PM GAME DESIGNER Inhaled Oxygen Concentration - - Weight 86.2 kg (190 lb) 02/03/2023 5:32 PM GAME DESIGNER Height 162.6 cm (5' 4 ) 02/03/2023 5:32 PM GAME DESIGNER Body Mass Index 32.61 02/03/2023 5:32 PM GAME DESIGNER documented in this encounter Functional Status Functional [...] 01/10/2023 documented as of this encounter Discharge Instructions * Discharge Instructions* Bear Cox DO - 02/03/2023 8:50 PM GAME DESIGNER You were evaluated for a complaint of left hip pain and concern for headaches and swelling at your post-operative site. We performed imaging and labwork and determined there was no fracture in your hip nor any new problems in your brain. Please follow-up with your PCP, and consider establishing care with a auto body painter for ongoing pain. Please return to the ER for any new or worsening concerns. DESIGNER documented in this encounter Medications at Time [...] 02/15/2023 oxyCODONE, immediate release, (Roxicodone) 5 MG tabletIndications:Ac quired skull defect Take 1 (one) tablet by mouth every 4 hours as needed 56 tablet 01/11/2023 04/05/2023 polyethylene glycol 3350 (Miralax) 17 g packet Insert 17 (seventeen) g into appropriate tube 2 times daily as needed 12/14/2022 04/05/2023 tamsulosin (Flomax) 0.4 MG capsule Take 1 (one) capsule by mouth once daily 12/14/2022 04/05/2023 documented as of this encounter Consult Notes * Stacie Hicks - 02/03/2023 10:50 PM CSTAssociated Order(s): IP CONSULT TO N COORDINATOR CRC reached out to patient via phone, patient was unavailable. CRC left voicemail, will attempt to contact again and update notes. Stacie Hicks Community Respite Care Provider ASCOM: [id number] DESIGNER documented in this encounter ED Notes * Mynor Menon RN - 02/03/2023 10:50 PM CST PT DISCHARGED HOME IN STABLE CONDITION. RESP EVEN AND UNLABORED, SKIN WARM, AND NONDIAPHORETIC. ALLWRITTEN AND VERBAL INSTRUCTIONS GIVEN TO THE PT. PT INSTRUCTED TO CALL 911 IF SYMPTOMS WORSEN OR COME BACK TO ED. INSTRUCTEDTO FOLLOW UP WITH PMD. PT VERBALIZES UNDERSTANDING. PT AMBULATED IN STEADY GAIT. DESIGNER * Jerald Haley MD - 02/03/2023 6:34 PM CST Emergency Medicine Attending Note Interval History : Chief Complaint Patient presents with ??? Headache Pt had a stroke and had to have a craniotomy. States she has been having a MOREIRA that has been gettingworse over the past few days. Also has chronic L hip pain ??? Pain Hip Consuelo aDrby is a 42 year old female with PMHx of stroke with residual left sided paralysis presenting to the ED c/o left hip pain. Patient reports left hip pain that began after she had a stroke(10/18/22). She states the pain has been worsening since its onset. She denies any falls or trauma tothe area before the pain began. Patient reports going to PT 5 days a week but otherwise ambulates wi th a wheelchair. She states pain is improved with standing and worsened with sitting or laying downmaking it difficult to sleep. Patient reports taking oxycodone, hydrocodone, and naproxen for the pain. She states steroids she was given while in rehab helped with the pain. Patient also has history of recent craniotomy (01/10/23) by Dr. Martin with Neurosurgery. She states that recovery has been going well until recently. Patient c/o new MOREIRA and right facial swelling. She denies fever, chest pain, and SOB. No other complaints or modifying factors at this time. Past Medical History: Diagnosis Date ??? Abdominal [...] Right 01/10/2023 Right; right cranioplasty, replacement of chefornak bone ??? Embolectomy Right 10/30/2022 Right; RIGHT ILEO femoral thrombectomy VIA CUTDOWN. REPAIR OF FEMORAL ARTERY WITH PATCH. ANGIOGRAM ??? ENDOSCOPY, UPPER N/A 2022 N/A; ESOPHAGOGASTRODUODENOSCOPY (EGD) DIAGNOSTIC with PEG Placement ??? ENDOSCOPY, UPPER N/A 11/10/2022 N/A; EGD, POSS. EX-LAP LEVEL 3 @ 1500 Social History Socioeconomic History ??? Marital status: Spouse name: Not on file ??? Number of children: Not on file ??? Years of education: Not on file ??? Highest education level: Not on file Occupational History ??? 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 Smoking status: Former Packs/day: .5 Types: Cigarettes Quit date: 2015 Years since quittin.9 ??? Smokeless tobacco: Never Vaping Use ??? [...] No Stress: No Stress Concern Present (01/10/2023) [employer] [place] [employer] - Occupational Stress Questionnaire ??? Feeling of Stress : Only a little Housing Stability: Low Risk (01/10/2023) Housing Stability Vital Sign ??? Unable to Pay for Housing in the Last Year: No ??? Number of Places Lived in the Last Year: 1 ??? Unstable Housing in the Last Year: No Allergies Allergen Reactions ??? 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 Fever Review of Systems: (+) positive Review of Systems Constitutional: Negative for chills, diaphoresis and fever. HENT: Negative for congestion and nosebleeds. Eyes: Negative for photophobia and pain. Respiratory: Negative for cough, hemoptysis, sputum production, shortness of breath, wheezing and stridor. Cardiovascular: Negative for chest pain, palpitations, orthopnea and leg swelling. Gastrointestinal: Negative for abdominal pain, constipation, diarrhea, nausea and vomiting. Genitourinary: Negative for dysuria and frequency. Musculoskeletal: Negative for back pain and myalgias. + Left hip pain Skin: Negative for rash. Neurological: Positive for headaches. Negative for dizziness, sensory change, focal weakness, loss of consciousness and weakness. Physical Exam Vitals: 02/03/23 1732 02/03/23 1830 BP: 124/70 131/78 Pulse: 89 Resp: 18 Temp: 97.9 ??F (36.6 ??C) SpO2: 96% 95% Weight: 86.2 kg (190 lb) Height: 1.626 m (5' 4 ) Physical Exam Constitutional: General: She is not in acute distress. Appearance: Normal appearance. She is not ill-appearing, toxic-appearing or diaphoretic. HENT: Head: Normocephalic and atraumatic. Comments: Well healed incisional scar right parietal area, soft tissue edema to right side of face and right parietal scalp, area is nontender Nose: Nose normal. Mouth/Throat: Mouth: Mucous membranes are moist. Pharynx: Oropharynx is clear. Eyes: Pupils: Pupils are equal, round, and reactive to light. Cardiovascular: Rate and Rhythm: Normal rate and regular rhythm. Pulses: Normal pulses. Radial pulses are 2+ on the right side and 2+ on the left side. Dorsalis pedis pulses are 2+ on the right side and 2+ on the left side. Pulmonary: Effort: Pulmonary effort is normal. Breath sounds: Normal breath sounds. Abdominal: General: Abdomen is flat. There is no distension. Palpations: Abdomen is soft. Tenderness: There is no abdominal tenderness. There is no guarding. Musculoskeletal: General: Normal range of motion. Cervical back: Normal range of motion and neck supple. Left hip: Tenderness present. Skin: General: Skin is warm and dry. Neurological: General: No focal deficit present. Mental Status: She is alert and oriented to person, place, and time. Mental status is at baseline. Comments: 0/5 strength LUE and LLE, 5/5 strength RUE and RLE, but no acute changes Psychiatric: Mood and Affect: Mood normal. Behavior: Behavior normal. Medical Decision Making: Problem List: 1. Left hip pain - Ddx: Neurologic pain vs fracture vs strain vs sprain vs other - PLAN: Lab work, CT head, left pelvis XR, symptomatic control see below for further orders/plan. Orders Placed This Encounter ??? CT HEAD WO CONTRAST ??? XR PELVIS W LEFT HIP 2VW ??? CBC W AUTO DIFFERENTIAL ??? COMPREHENSIVE METABOLIC PANEL ??? ERYTHROCYTE SEDIMENTATION RATE ??? C-REACTIVE PROTEIN ??? HCG BETA BLOOD QUANTITATIVE ??? URINALYSIS W/MICROSCOPIC NO CULTURE ??? IP CONSULT TO N COORDINATOR ??? oxyCODONE (immediate release) (Roxicodone) tablet 5 mg Data Review: (All Labs/Imaging/ECG, other diagnostics independently interpreted by me.) - MONITORING: The patient's Telephone Triage Nurse Rhythm was interpreted by me. The monitoring analyst showed NSR. This is interpreted as normal. The patient's Oxygen Saturation Monitor was interpreted by me. The reading was 97%. The patient wason RA at the time of the reading. This is interpreted as normal. - LABS: Labs Reviewed COMPREHENSIVE METABOLIC PANEL - Abnormal; Notable for the following components: Result Value Chloride 109 (*) CO2 21 (*) Albumin 2.9 (*) Bilirubin Total 0.1 (*) Albumin/Globulin Ratio 0.7 (*) All other components within normal limits C-REACTIVE PROTEIN - Abnormal; Notable for the following components: C-Reactive Protein 1.5 (*) All other components within normal limits URINALYSIS W/MICROSCOPIC NO CULTURE - Abnormal; Notable for the following components: Clarity UA Slt Cloudy (*) Blood UA 1+ (*) RBC UA 6-10 (*) Bacteria UA Trace (*) All other components within normal limits Narrative: HCG BETA BLOOD QUANTITATIVE CBC W AUTO DIFFERENTIAL ERYTHROCYTE SEDIMENTATION RATE - IMAGING: CT HEAD WO CONTRAST Final Result EXAM: CT HEAD WO CONTRAST, DATE/TIME OF EXAM: 02/03/2023 7:37 PM, LOCATION: [facility] HISTORY: R51.9: Acute intractable headache, unspecified headache type ADDITIONAL CLINICAL INFORMATION: Ordering Provider Reason For Exam: Rule out ICH. EXAMINATION: CT scan of the head without intravenous contrast TECHNIQUE: CT of the head was performed without intravenous contrast according to standard protocol. CT dose reduction technique was used, including Automated Exposure Control. COMPARISON: Head CT 01/11/2023. FINDINGS: BRAIN PARENCHYMA/VENTRICLES/EXTRA-AXIAL SPACES/BONES: Re-demonstrated postsurgical changes of right frontoparietotemporal craniotomy/cranioplasty. Interval resolution of previously seen cerebral convexity pneumocephalus. Evolving extra-axial liquid/blood products underlying the craniotomy/cranioplasty site that now measures up to 5 mm in thickness, which has slightly decreased compared to prior examination. Re-demonstrated evolving encephalomalacia of the right frontal, parietal, and temporal lobes in addition to the right basal ganglia with ex vacuo dilation of the right lateral ventricle, which is consistent with a large chronic infarct corresponding to the right middle cerebral artery (MCA) vascular territory. Small chronic infarct of the left frontal [...] Basal cisterns are patent. OTHER EXTRACRANIAL STRUCTURES: Slightly decreased liquid collection along the right frontoparietotemporal scalp overlying the craniotomy/cranioplasty that now measures 8.5 x 7.3 x 1.2 cm (AP x CC x TV; , 06/29), previously 11 x 8.3 x 2 cm when measured similarly. This either represents an evolving postoperative collection/seroma versus a pseudomeningocele. Visualized paranasal sinuses and mastoids demonstrate no significant abnormality. Orbits are unremarkable. IMPRESSION: Compared to prior head CT 01/11/2023: 1.Re-demonstrated postsurgical changes of right frontoparietotemporal craniotomy/cranioplasty. Interval resolution of previously seen cerebral convexity pneumocephalus. Evolving extra-axial liquid/blood products underlying the craniotomy/cranioplasty site that now measures up to 5 mm in thickness, which has slightly decreased compared to prior examination. No significant midline shift or brain herniation. 2.Further evolution of a large chronic right MCA vascular territory infarct and small chronic left MCA vascular territory infarct as described. 3.No evidence of a new acute intracranial hemorrhage. 4.Slightly decreased liquid collection along the right frontoparietotemporal scalp overlying the craniotomy/cranioplasty that now measures 8.5 x 7.3 x 1.2 cm (AP x CC x TV), which either represents an evolving postoperative collection/seroma versus a pseudomeningocele. > Interpreting Provider: Amanda Real MD, PhD on 02/03/2023 9:08 PM XR PELVIS W LEFT HIP 2VW (Results Pending) No results found. - MEDS: Medications oxyCODONE (immediate release) (Roxicodone) tablet 5 mg (5 mg Oral $ Given 02/03/232228) MDM: History is obtained from patient and is located in my HPI section. I also externally reviewed previous records that I had access to within [facility] and noted relevant statements in my HPI. Code status patient/POA: Full code Relevant PE findings: Left hip tenderness, right sided soft tissue facial edema Labs reviewed: Elevated CRP Imaging reviewed: No fracture or dislocation, interval improvement of pneumocephalus ED COURSE 7:15 PM: Labs reviewed: elevated CRP of 1.5. 8:21 PM: XR of left hip shows no fracture or dislocation. 8:35 PM: CT head shows interval improvement of pneumocephalus and small amount of extra axial fluidsimilar to prior exam. No new hemorrhage or midline shift noted. 8:52 PM: Resident discussed with patient that imaging is unremarkable including no fracture and improvement of pneumocephalus. Plan to discharge with instructions to follow up with her PCP and consider establishing care with a auto body painter. 10:29 PM: Patient given 5 mg oxycodone. 10:45 PM: I have reviewed her diagnostic findings and she has had an opportunity to ask me any questions she has about care, diagnosis and discharge plan. Patient is comfortable with the discharge plan. She will follow up as directed and will return to the ER if her condition worsens or she develops other urgent concerns. Labs/images reviewed at bedside with patient: yes Conclusion and Disposition: Acute problems: headache, hip pain Exacerbations of chronic problems: cva Systemic issues: none Consultations in the ED: None Medication changes: none Follow up: PCP Orders and Medicine administered during this encounter: Orders Placed This Encounter ??? CT HEAD WO CONTRAST ??? XR PELVIS W LEFT HIP 2VW ??? CBC W AUTO DIFFERENTIAL ??? COMPREHENSIVE METABOLIC PANEL ??? ERYTHROCYTE SEDIMENTATION RATE ??? C-REACTIVE PROTEIN ??? HCG BETA BLOOD QUANTITATIVE ??? URINALYSIS W/MICROSCOPIC NO CULTURE ??? IP CONSULT TO IHN COORDINATOR ??? oxyCODONE (immediate release) (Roxicodone) tablet 5 mg Medications oxyCODONE (immediate release) (Roxicodone) tablet 5 mg (5 mg Oral $ Given 02/03/232228) Clinical Impression: 1. Acute intractable headache, unspecified headache type 2. Left hip pain Disposition: Discharge By signing my name below, Hanane Ornelas, attest that this documentation has been prepared under the direction and in the presence of Dr. Haley. Signed: Sydni Carmona. Date: 02/03/2023. I, Dr. Haley, personally performed the services described in this documentation. All medical record entries made by the scribe were at my direction and in my presence. I have reviewed the chart and agree that the record reflects my personal performance and is accurate and complete. DESIGNER * Zoë Ross - 02/03/2023 6:20 PM CST Bed: AC23 Expected date: Expected time: Means of arrival: Comments: SURYA DESIGNER * Mary Leos PA-C - 02/03/2023 5:45 PM CST Medical Screening Exam 02/03/2023 5:45 PM Provider contact with the patient Consuelo Darby CC: Headache (Pt had a stroke and had to have a craniotomy. States she has been having a MOREIRA that has been getting worse over the past few days. Also has chronic L hip pain) and Pain Hip Chief complaint narrative was entered by triage nurse, not by provider Provider in Triage HPI: Consuelo Darby is a 42 year old female PMH as noted below who presents with MOREIRA. Had craniotomy 01/10/2023 and recovery has been going well until MOREIRA and R head swelling a few days ago. No vision changes, numbness, tingling, weakness. Also having L hip pain for the past several months. No fall or trauma. Is getting PT. Normal urine and BMs. Limited Chart History: Past Medical History: Diagnosis Date ??? [...] Right 01/10/2023 Right; right cranioplasty, replacement of chefornak bone ??? Embolectomy Right 10/30/2022 Right; RIGHT ILEO femoral thrombectomy VIA CUTDOWN. REPAIR OF FEMORAL ARTERY WITH PATCH. ANGIOGRAM ??? ENDOSCOPY, UPPER N/A 2022 N/A; ESOPHAGOGASTRODUODENOSCOPY (EGD) DIAGNOSTIC with PEG Placement ??? ENDOSCOPY, UPPER N/A 11/10/2022 N/A; EGD, POSS. EX-LAP LEVEL 3 @ 1500 No current facility-administered medications for this encounter. Current Outpatient Medications Medication Sig Dispense Refill ??? baclofen (Lioresal) [...] ??? cyclobenzaprine (Flexeril) 5 MG tablet ??? gabapentin (Neurontin) 300 MG capsule Take 1 (one) capsule by mouth 3 times daily PLEASE REQUEST ALL FUTURE REFILLS OF THIS MEDICATION FROM YOUR PRIMARY CARE DOCTOR. 270 capsule 1 ??? hydrOXYzine HCl (Atarax) 25 MG tablet Take 1 (one) tablet by mouth every 6 hours as needed ??? levETIRAcetam (Keppra) 500 MG tablet Take 1 (one) tablet by mouth 2 times daily 60 tablet 1 ??? metoprolol tartrate IR (Lopressor) 25 MG tablet Take 1 (one) tablet by mouth 2 times daily ??? oxyCODONE, immediate release, (Roxicodone) 5 MG [...] (one) capsule by mouth at bedtime Allergies Allergen Reactions ??? 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 Fever PCP: Jaden Thakur DO (Above may be pending completion) Vital Signs reviewed in Triage BP 124/70 Pulse 89 Temp 97.9 ??F (36.6 ??C) (Temporal) Resp 18 Ht 1.626 m (5' 4 ) Wt 86.2kg (190 lb) SpO2 96% Pertinent Physical Findings: Constitutional: vitals as above, WDWN Head: R head swelling Eyes: conjunctiva clear ENT: no rhinorrhea Neck: neck supple, no nuchal rigidity Resp: respirations even and unlabored, lungs clear bilaterally CV: Heart RRR, no m/c/r/g Abd: nondistended Skin: warm, dry,color normal for ethnicity MSK: moves all extremities Neuro: normal speech Psych: Normal affect Complete physical exam is limited due to patient sitting in up right position in chair MDM: I have reviewed all lab and imaging resulted ordered during this visit and available at the time ofthis note. Triage notes and available nursing notes reviewed. Previous medical record reviewed whenavailable. Management options include but not limited to: physical exam, laboratory testing, discussion with other providers. PLAN Diagnostic tests ordered: Orders Placed This Encounter Procedures ??? CT HEAD WO CONTRAST ??? CBC W AUTO DIFFERENTIAL ??? COMPREHENSIVE METABOLIC PANEL ??? ERYTHROCYTE SEDIMENTATION RATE ??? C-REACTIVE PROTEIN ??? HCG BETA BLOOD QUANTITATIVE ??? URINALYSIS W/MICROSCOPIC NO CULTURE MEDICATIONS FOR CURRENT ENCOUNTER: ?? SCHEDULED MEDICATIONS: ?? No current facility-administered medications for this encounter. ?? CONTINUOUS MEDICATIONS: ?? No current facility-administered medications for this encounter. ?? PRN MEDICATIONS: ?? No current facility-administered medications for this encounter. Based on the Medical Screening Exam performed and diagnostic tests at this time, further evaluationis indicated and will be performed. Patient will be transferred to a main ED room when one is available and care will be transferred to ER provider. Mary Leos PA-C DESIGNER documented in this encounter Plan of Treatment Not on file documented as of this encounter Procedures Procedure Name Priority Date/Time Associated Diagnosis Comments CT HEAD WO CONTRAST STAT 02/03/2023 7 :36 PM GAME DESIGNER Acute intractable headache, unspecified headache type XR PELVIS W LEFT HIP 2VW STAT 02/03/2023 7:16 PM GAME DESIGNER Left hip pain URINALYSIS W/MICROSCOPIC NO CULTURE STAT 02/03/2023 6:11 PM GAME DESIGNER C-REACTIVE PROTEIN JOSE GUADALUPE 02/03/2023 5: 48 PM GAME DESIGNER COMPREHENSIVE METABOLIC PANEL STAT 02/03/2023 5:48 PM GAME DESIGNER HCG BETA BLOOD QUANTITATIVE STAT 02/03/2023 5:48 PM GAME DESIGNER documented in this encounter Results * CT HEAD WO CONTRAST (02/03/2023 7:36 PM GAME DESIGNER) Anatomical Region Laterality Modality Head Computed Tomogra phy 02/03/2023 8:38 PM GAME DESIGNER Impressions 02/03/2023 9:08 PM GAME DESIGNER IMPRESSION: Compared to prior head CT 01/11/2023: 1.Re-demonstrated postsurgical changes of right frontoparietotemporal craniotomy/cranioplasty. Interval resolution of previously seen cerebral convexity pneumocephalus. Evolving extra-axial liquid/blood products underlying the craniotomy/cranioplasty site that now measures up to 5 mm in thickness, which has slightly decreased compared to prior examination. No significant midline shift or brain herniation. 2.Further evolution of a large chronic right MCA vascular territory infarct and small chronic left MCA vascular territory infarct as described. 3.No evidence of a new acute intracranial hemorrhage. 4.Slightly decreased liquid collection along the right frontoparietotemporal scalp overlying the craniotomy/cranioplasty that now measures 8.5 x 7.3 x 1.2 cm (AP x CC x TV), which either represents an evolving postoperative collection/seroma versus a pseudomeningocele. > Interpreting Provider: Amanda Real MD, PhD on 02/03/2023 9:08 PM Narrative 02/03/2023 9:08 PM GAME DESIGNER EXAM: CT HEAD WO CONTRAST, DATE/TIME OF EXAM: 02/03/2023 7:37 PM, LOCATION: [facility] HISTORY: R51.9: Acute intractable headache, unspecified headache type ADDITIONAL CLINICAL INFORMATION: Ordering Provider Reason For Exam: ??Rule out ICH. EXAMINATION: CT scan of the head without intravenous contrast TECHNIQUE: CT of the head was performed without intravenous contrast according to standard protocol. CT dose reduction technique was used, including Automated Exposure Control. COMPARISON: Head CT 01/11/2023. FINDINGS: BRAIN PARENCHYMA/VENTRICLES/EXTRA-AXIAL SPACES/BONES: Re-demonstrated postsurgical changes of right frontoparietotemporal craniotomy/cranioplasty. Interval resolution of previously seen cerebral convexity pneumocephalus. Evolving extra-axial liquid/blood products underlying the craniotomy/cranioplasty site that now measures up to 5 mm in thickness, which has slightly decreased compared to prior examination. Re-demonstrated evolving encephalomalacia of the right frontal, parietal, and temporal lobes in addition to the right basal ganglia with ex vacuo dilation of the right lateral ventricle, which is consistent with a large chronic infarct corresponding to the right middle cerebral artery (MCA) vascular territory. Small chronic infarct of the left frontal [...] Basal cisterns are patent. OTHER EXTRACRANIAL STRUCTURES: Slightly decreased liquid collection along the right frontoparietotemporal scalp overlying the craniotomy/cranioplasty that now measures 8.5 x 7.3 x 1.2 cm (AP x CC x TV; , 06/29), previously 11 x 8.3 x 2 cm when measured similarly. This either represents an evolving postoperative collection/seroma versus a pseudomeningocele. Visualized paranasal sinuses and mastoids demonstrate no significant abnormality. Orbits are unremarkable. Procedure Note Amanda Real MD - 02/03/2023 EXAM: CT HEAD WO CONTRAST, DATE/TIME OF EXAM: 02/03/2023 7:37 PM,LOCATION: [facility] HISTORY: R51.9: Acute intractable headache, unspecified headache type ADDITIONAL CLINICAL INFORMATION: Ordering Provider Reason For Exam: Rule out ICH. EXAMINATION: CT scan of the head without intravenous contrast TECHNIQUE: CT of the head was performed without intravenous contrast according to standard protocol. CT dose reduction technique was used, including Automated Exposure Control. COMPARISON: Head CT 01/11/2023. FINDINGS: BRAIN PARENCHYMA/VENTRICLES/EXTRA-AXIAL SPACES/BONES: Re-demonstrated postsurgical changes of right frontoparietotemporal craniotomy/cranioplasty. Interval resolution of previously seen cerebral convexity pneumocephalus. Evolving extra-axial liquid/blood products underlying the craniotomy/cranioplasty site that now measures up to 5 mmin thickness, which has slightly decreased compared to prior examination. Re-demonstrated evolving encephalomalacia of the right frontal,parietal, and temporal lobes in addition to the right basal ganglia with ex vacuo dilation of the right lateral ventricle, which is consistent with alarge chronic infarct corresponding to the right middle cerebral artery (MCA) vascular territory. Small chronic infarct of the left frontal gyrus and left martínez radiata, which is consistent with a small chronic infarct corresponding to the left MCA vascular territory. Scattered white matter hypodensities, which are nonspecific but likely represents the sequela of chronic microangiopathic change. Mildgeneralized parenchymal volume loss. No evidence of a new acute intracranial hemorrhage. No significantmidline shift or brain herniation. No evidence of hydrocephalus. Basal cisterns are patent. OTHER EXTRACRANIAL STRUCTURES: Slightly decreased liquid collectionalong the right frontoparietotemporal scalp overlying thecraniotomy/cranioplasty that now measures 8.5 x 7.3 x 1.2 cm (AP x CC x TV; , 06/29),previously 11 x 8.3 x 2 cm when measured similarly. This either represents anevolving postoperative collection/seroma versus a pseudomeningocele. Visualized paranasal sinuses and mastoids demonstrate no significant abnormality. Orbits are unremarkable. IMPRESSION: Compared to prior head CT 01/11/2023: 1.Re-demonstrated postsurgical changes of right frontoparietotemporal craniotomy/cranioplasty. Interval resolution of previously seen cerebral convexity pneumocephalus. Evolving extra-axial liquid/blood products underlying the craniotomy/cranioplasty site that now measures up to 5 mmin thickness, which has slightly decreased compared to prior examination.No significant midline shift or brain herniation. 2.Further evolution of a large chronic right MCA vascular territoryinfarct and small chronic left MCA vascular territory infarct as described. 3.No evidence of a new acute intracranial hemorrhage. 4.Slightly decreased liquid collection along the right frontoparietotemporal scalp overlying the craniotomy/cranioplasty thatnow measures 8.5 x 7.3 x 1.2 cm (AP x CC x TV), which either represents an evolving postoperative collection/seroma versus a pseudomeningocele. > Interpreting Provider: Amanda Real MD, PhD on 02/03/2023 9:08 PM Mary Leos PA-C CT ORDERABLES * XR PELVIS W LEFT HIP 2VW (02/03/2023 7:16 PM GAME DESIGNER) Anatomical Region Laterality Modality Pelvis Radiographic Irene ging 02/03/2023 7:27 PM GAME DESIGNER Impressions 02/04/2023 6:49 PM GAME DESIGNER IMPRESSION: No acute fracture or dislocation identified. Report dictated by Kumar Castaneda MD, (vice president financial). I, Alexx Lopez have personally reviewed and interpreted this examination/study. > Interpreting Provider: Alexx Lopez on 02/04/2023 6:49 PM Narrative 02/04/2023 6:49 PM GAME DESIGNER PROCEDURE: ??XR PELVIS W LEFT HIP 2VW, DATE/TIME OF EXAM: ??02/03/2023 7:17 PM, LOCATION ??[facility] INDICATION: M25.552: Left hip pain ADDITIONAL [...] 2VW, DATE/TIME OF EXAM: 37:17 PM, LOCATION [facility] INDICATION: M25.552: Left hip pain ADDITIONAL CLINICAL INFORMATION: Ordering Provider Reason For Exam: fx COMPARISON: None. FINDINGS: Bilateral femoral heads are well-seated within their respectiveacetabula. The joint spaces are preserved. There is no left hip fracture. There isno diastasis of the sacroiliac joints of the pubic symphysis. IMPRESSION: No acute fracture or dislocation identified. Report dictated by Kumar Castaneda MD, (vice president financial). IAlexx have personally reviewed and interpreted this examination/study. > Interpreting Provider: Alexx Lopez on 02/04/2023 6:49 PM Jerald Haley MD DIAGNOSTIC IMAGING ORDERABLES * (ABNORMAL) URINALYSIS W/MICROSCOPIC NO CULTURE (02/03/2023 6:11 PM GAME DESIGNER) Color UA Straw Straw, Yellow 02/03/2023 6:23 PM [facility] Clarity UA Slt Cloudy(A) Clear 02/03/2023 6:23 PM [facility] Specific [place] UA 1.013 1.005 - 1.030 02/03/2023 6:23 PM [facility] pH UA 6.0 5.0 - 8.0 pH 02/03/2023 6:23 PM [facility] Protein UA Negative Negative 02/03/2023 6:23 PM [facility] Glucose UA Negative Negative 02/03/2023 6:23 PM [facility] Ketone UA Negative Negative 02/03/2023 6:23 PM [facility] Bilirubin UA Negative Negative 02/03/2023 6:23 PM [facility] Blood UA 1+(A) Negative 02/03/2023 6:23 PM [facility] Nitrite UA Negative Negative 02/03/2023 6:23 PM [facility] Leukocyte Esterase Negative Negative 02/03/2023 6:23 PM [facility] Urobilinogen UA Negative Negative mg/dL 02/03/2023 6:23 PM [facility] RBC UA 6-10(A) None Seen, 0-2, 3-5 /HPF 02/03/2023 6:23 PM [facility] WBC UA 0-5 None Seen, 0-5 /HPF 02/03/2023 6:23 PM [facility] Bacteria UA Trace(A) None /HPF 02/03/2023 6:23 PM [facility] Squamous Epithelial Cells UA 3-5 None Seen, 0-2, 3-5 /HPF 02/03/2023 6:23 PM [facility] Mucus UA 1+ /LPF 02/03/2023 6:23 PM [facility] Urine URINE SPECIMEN OBTAINED BY CLEAN CATCH PROCEDURE / Unknown Collection / Unknown 02/03/2023 6:11 PM GAME DESIGNER 02/03/2023 6:13 PM GAME DESIGNER Narrative [facility] - 02/03/2023 6:23 PM GAME DESIGNER Mary Leos PA-C LAB - URINALYSIS O RDERABLES [facility] [address] [place] [id number], [facility] [phone] * HCG BETA BLOOD QUANTITATIVE (02/03/2023 5:48 PM GAME DESIGNER) Beta-hCG Total Quantitative <3 mIU/mL 02/03/2023 6:37 PM [facility] Comment: HCG Numeric Result Interpretation: ? Non- [...] Unknown Venipuncture / Unknown 02/03/2023 5:48 PM GAME DESIGNER 02/03/2023 5:58 PM GAME DESIGNER Mary Leos PA-C LAB - CHEMISTRY OR DERABLES Performing Organization Address City/[facility]/ZIP Co de Phone Number [address] [address], [facility] [phone] * (ABNORMAL) C-REACTIVE PROTEIN (02/03/2023 5:48 PM GAME DESIGNER) Pathologist [facility] C-Reactive Protein 1.5(H) <=0.5 mg/dL 02/03/2023 6:27 PM [facility] Blood BLOOD SPECIMEN / Unknown Venipuncture / Unknown 02/03/2023 5:48 PM GAME DESIGNER 02/03/2023 5:56 PM GAME DESIGNER Mayr Leos PA-C LAB - CHEMISTRY OR DERABLES Performing Organization Address City/[facility]/ZIP Co de Phone Number [address] [address], [facility] [phone] * (ABNORMAL) COMPREHENSIVE METABOLIC PANEL (02/03/2023 5:48 PM GAME DESIGNER) [facility] BUN 16 7 - 26 mg/dL 02/03/2023 6:39 PM [facility] Creatinine 0.77 0.56 - 0.96 mg/dL 02/03/2023 6:39 PM [facility] Sodium 141 136 - 145 mmol/L 02/03/2023 6:39 PM [facility] Potassium 4.4 3.5 - 4.5 mmol/L 02/03/2023 6:39 PM [facility] Comment:Hemolysis detected i n this specimen. Hemolysis may cause false elevations in potassium leading to pseudohyperkalemia or masked hypokalemia. Recommend repeat testing if clinically indicated. Chloride 109(H) 98 - 107 mmol/L 02/03/2023 6:39 PM [facility] CO2 21(L) 22 - 29 mmol/L 02/03/2023 6:39 PM [facility] Glucose 101 70 - 115 mg/dL 02/03/2023 6:39 PM [facility] Calcium 8.7 8.4 - 10.2 mg/dL 02/03/2023 6:39 PM [facility] Protein Total 7.1 6.0 - 8.3 g/dL 02/03/2023 6:39 PM [facility] Comment:Hemolysis detected i n this specimen. Hemolysis is known to cause elevations in this analyte. Caution should be exercised in the interpretation of this result. Recommend repeat testing if clinically indicated. Albumin 2.9(L) 3.4 - 5.0 g/dL 02/03/2023 6:39 PM [facility] Bilirubin Total 0.1(L) 0.2 - 1.2 mg/dL 02/03/2023 6:39 PM [facility] Alkaline Phosphatase 79 40 - 150 U/L 02/03/2023 6:39 PM [facility] ALT 23 5 - 55 U/L 02/03/2023 6:39 PM [facility] AST 24 5 - 34 U/L 02/03/2023 6:39 PM [facility] Comment:Hemolysis detected i n this specimen. Hemolysis is known to cause elevations in this analyte. Caution should be exercised in the interpretation of this result. Recommend repeat testing if clinically indicated. Anion Gap 11 6 - 16 02/03/2023 6:39 PM [facility] BUN/Creatinine Ratio 21 7 - 23 01/11 6:39 PM [facility] Osmolality Calculated 293 275 - 295 mOsm/kg 02/03/2023 6:39 PM [facility] Albumin/Globulin Ratio 0.7(L) 1.1 - 2.3 6:39 PM [facility] eGFR by CKD-EPI >90 >=90 mL/min/1. 73 m2 02/03/2023 6:39 PM [facility] Blood BLOOD SPECIMEN / Unknown Venipuncture / Unknown 02/03/2023 5:48 PM GAME DESIGNER 02/03/2023 5:58 PM GAME DESIGNER Mary Leos PA-C LAB - CHEMISTRY OR DERABLES [facility] [address] [place] [address], [facility] [phone] documented in this encounter Visit Diagnoses Diagnosis Acute intractable headache, unspecified headache type Left hip pain Pain in joint, pelvic region and thigh documented in this encounter Administered Medications Inactive Administered Medications - up to 3 most recent administrations Medication Order MAR Action Action Date Dose Rate Site oxyCODONE (immediate release) (Roxicodone) tablet 5 mg 5 mg, Oral, Once, 1 dose, On 02/03/23 at 2200, Patient preference for lesser PRN pain meds may be honored when the patient requests a less strong medication, a lower dose, or a less intrusive route of administration when the lesser drug, dose and route have been ordered for the patient. This patient request must be documented in the MAR. $ Given 02/03/2023 10:29 PM GAME DESIGNER 5 mg documented in this encounter Active and Recently Administered Medications Times are shown in GAME DESIGNER. Scheduled Medication Order 02/01/2023 02/02/2023 02/03/2023 oxyCODONE (immediate release) (Roxicodone) tablet 5 mg (COMPLETED) 5 mg, Oral, Once, 1 dose, On 02/03/23 at 2200, Patient preference for lesser PRN pain meds may be honored when the patient requests a less strong medication, a lower dose, or a less intrusive route of administration when the lesser drug, dose and route have been ordered for the patient. This patient request must be documented in the MAR. 2228 ($ Given - Prov ider: Mynor Menon RN) documented in this encounter Care Teams Outdoor Power Equipment Mechanic Relationship Specialty Start Date End Date Jean Joy MD PCP - OBGYN 12/27/07 Jaden Thakur DO [address] [place] [id number] PCP - Attributed-[facility] 09/10/19 06/28/23 Jaden Thakur DO [address] [place] [id number] PCP - General Family Medicine Geriatric Medicine 01/05/23 documented as of this encounter
--- OUTSIDE RECORDS SUMMARY | 2024-03-19 20:34 | XMS_ITS | Encounter Summary ---
Author Organization [facility] Address [address] [place] [address] Care Team Providers Care Check Scaler Name Role Phone Jean Joy MD Unavailable [phone] Jaden Thakur DO Unavailable [phone] Jaden Thakur DO Primary Care Provider + Encounter Details Date Type Department Care Team (Latest Contact Info) Description 04/05/2023 Travel Social History Tobacco Use Types Packs/Day Years [...] Health Questionnaire-2 Score 0 11/15/2022 [facility] [place] [facility] - Occupational Stress [...] place to sleep or slept in a intermediate (including now)? No 01/10/2023 Sex and Gender [...] on filedocumented in this encounter Care Teams Check Scaler Relationship Specialty Start Date End Date Jean Joy MD PCP - OBGYN 12/27/07 Jaden Thakur DO [address] [place] [address] PCP - Attributed[facility] 09/10/19 06/28/23 Jaden Thakur DO [address] [place] [address] PCP - General Family Medicine Geriatric Medicine 01/05/23 documented as of this encounter
--- OUTSIDE RECORDS SUMMARY | 2024-03-19 20:34 | XMS_ITS | Encounter Summary ---
Author Organization [facility] Address [address] [place] [address] Care Team Providers Care Tattoo And Body Artist Name Role Phone Jean Joy MD Unavailable [phone] Jaden Thakur DO Unavailable [phone] Jaden Thakur DO Primary Care Provider + Reason for Visit * Reason Comments Pain Hip left Encounter Details Date Type Department Care Team (Late st Contact Info) Description 04/30/2023 2:45 PM CLERICAL WAREHOUSEMAN Office Visit [facility] - Orthopedics [address] [place] [address], [place] [address] Ngoc Chandler, PATarikC [address] [place] [id number] Greater trochanteric bursitis of left hip (Primary Dx); It band syndrome, left; Chronic midline low back pain without sciatica; Sacroiliitis (HCC); Pain of left hip Social History Tobacco Use Types Packs/Day Years [...] Recorded Patient Health Questionnaire-2 Score 0 11/15/2022 [facility] - Occupational [...] Sign Reading Time Taken Comments Blood Pressure - - Pulse - - Temperature - - Respiratory Rate - - Oxygen Saturation - - Inhaled Oxygen Concentration - - Weight 91.2 kg (201 lb) 04/30/2023 2:26 PM CLERICAL WAREHOUSEMAN Height - - Body Mass Index 34.5 04/05/2023 1:00 PM CLERICAL WAREHOUSEMAN documented in this encounter Functional Status Functional [...] this encounter Patient Instructions * Patient Instructions* Ngoc Chandler PA-C - 04/30/2023 4:04 PM CLERICAL WAREHOUSEMAN Images from the original note were not included. [facility]opa[facility] Medicine [facility] Consuelo Darby 04/30/2023 Thank you for coming in to see us today for your hip pain. Work/School Excuse: Excused from Work/School on 04/30/23 DIAGNOSIS: Greater trochanteric bursitis of left hip It band syndrome, left Chronic midline low back pain without sciatica Sacroiliitis (CMS-HCC) Pain of left hip Plan: -We discussed and recommended conservative treatment which includes: icing, physical therapy exercises, corticosteroid injections, anti-inflammatory medications, tylenol, and activity modification Follow up: will call with what Joint Replacement Specialist recommendations in regards to injections at this point. Please contact us at to make an appointment if your symptoms are not improving, or if something about your condition significantly changes. If approved to take by your primary care physician, NSAIDs (non-steroidal anti- inflammatory drugs) such as Aleve/naproxen and Motrin/ibuprofen, are suggested to relieve inflammation and pain for a short course of therapy for 10 days, advised to take with food and do not take with other NSAIDs. If you develop any adverse side effects such as dysphasia (pain with swallowing), stomach pain, nausea, chest pain, or changes in bladder, please discontinue the medication immediately. If approved to take by your primary care physician, Tylenol (acetaminophen) are suggested to help decrease pain. You cannot take more than 4000 mg per day or it can cause liver toxicity and damage. Please take the following to promote bone health: Multivitamin 1 tablet daily Vitamin D3 and Calcium as directed by your primary care provider. Can try Glucosamine/chondriotin or Tumeric for anti-inflammatory relief Cryotherapy (Ice therapy) is commonly used to reduce temperature, inflammation, pain, muscle spasm and symptoms of delayed onset muscle soreness. There are various methods of ice application such as ice pack, cold pack, cold water immersion, ice massage. Make sure you do not apply ice directly to your skin because it can cause mcdonnell bite. You may apply ice to the affected area for 20 minutes at atime and remove ice for 30 minutes. Then, can apply ice again if needed. [facility] Orthopaedic office contact information: Please contact our clinic call center at if you need to schedule or change an appointment. You can call my nurse, Natalee Montano at [phone] if you have any questions or concerns Location: [facility] [address] [place] [address], [place] [address] [facility] [address] [place] [address], [place] [address] FOR MEDICAL EMERGENCIES PLEASE CALL 911 Sincerely, Ngoc Chandler PA-C Certified Physician Brush Clearer Surveying Orthopedic Surgery Department ICAL WAREHOUSEMAN documented in this encounter Progress Notes * Ngoc Chandler PA-C - 04/30/2023 4:02 PM CST ORTHOPAEDIC MEDICINE CLINIC Consuelo Darby 42 year old female CSN: [id number] Date of service: 04/30/2023 HPI Today we had the pleasure of seeing Consuelo Darby in Orthopaedic Medicine Clinic for evaluation of her left hip pain chief complaint. Consuelo Darby is a 42 year old female who presents with complaints of left hip pain which is described as deep, achy, without radiation. Pain has been going on since her stroke in 10/2022. 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 Since then she has been in a wheelchair and has had increased point tenderness to left lateral hip. She did have one hip injection at the skilled rehab facility with improvement of her pain until just recently. She presents today to have another injection and discuss her pain further. The patient cannot walk and is mostly in wheelchair. The symptoms are activity- related and improve with rest. The symptoms limit their activities of daily living.They have tried icing, tylenol, anti-inflammatory medications, activity modification, physical therapy exercises and corticosteroid injections for their symptoms. She was last in our office 02/15/2023, and at that time she was given a left greater trochanteric bursa injection with no improvement of her pain. She reports continued chronic pain 6/10 increases to 8/10 after moving once sitting in one position for long periods of time. No relief with Gabapentin and was weaned off the medication. She went to see Dr. Dominguez Pain Management who believes she could be having Central Post Stroke Pain vs Bursitis and recommended waiting to have MRI Left Hip Completed and then follow up with results. She had an MRI Left Hip Completed and is here to discuss next steps. Prior Treatments: History of Steroid use or Steroid Injections to affected joint: Yes while in rehab Physical Therapy: has participated in PT in the past and is actively involved Objective Weight 91.2 kg (201 lb), not currently . PMHx Past Medical History: Diagnosis Date ??? Abdominal pain, right upper quadrant ??? Anemia ??? CVA (cerebral vascular accident) (CMS-HCC) ??? Essential hypertension ??? GERD (gastroesophageal reflux disease) ??? 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 History of hypertension gestational hypertension PSHx Past Surgical History: Procedure Laterality Date ??? [...] Right 01/10/2023 Right; right cranioplasty, replacement of [place] bone ??? Embolectomy Right 10/30/2022 Right; RIGHT ILEO femoral thrombectomy VIA CUTDOWN. REPAIR OF FEMORAL ARTERY WITH PATCH. ANGIOGRAM ??? ENDOSCOPY, UPPER N/A 2022 N/A; ESOPHAGOGASTRODUODENOSCOPY (EGD) DIAGNOSTIC with PEG Placement ??? ENDOSCOPY, UPPER N/A 11/10/2022 N/A; EGD, POSS. EX-LAP LEVEL 3 @ 1500 Social Hx Social History Tobacco Use ??? Smoking status: Former Packs/day: .5 Types: Cigarettes Quit date: 2014 Years since quittin.1 ??? Smokeless tobacco: Never Substance Use Topics ??? Alcohol use: No Alcohol/week: 0.0 - 1.7 standard drinks of alcohol Comment: Occasional Family Hx family history includes Cancer in her maternal grandfather; Cancer - Breast in her maternal aunt; Diabetes in her maternal grandfather and maternal grandmother; Hypertension in her mother; Thyroid Disease in her mother. Allergies Allergies Allergen Reactions ??? 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 Fever Medications Current Outpatient Medications Medication ??? aspirin (Aspirin) 81 MG chew tablet ??? Cetirizine HCl (ZYRTEC PO) ??? Cholecalciferol 25 MCG (1000 UT) ??? cyclobenzaprine (Flexeril) 5 MG tablet ??? DULoxetine (Cymbalta) 60 MG capsule ??? gabapentin (Neurontin) 300 MG capsule ??? HYDROcodone-acetaminophen (Maskell) 10-325 MG tablet ??? hydrOXYzine HCl (Atarax) 25 MG tablet ??? levETIRAcetam (Keppra) 500 MG tablet ??? metoprolol tartrate IR (Lopressor) 25 MG tablet ??? naloxone HCl (Narcan) 4 MG/0.1ML nasal spray ??? pantoprazole EC (Protonix) 40 MG tablet ??? verapamil SR 24hr (Verelan) 120 MG capsule No current facility-administered medications for this visit. ROS A complete organ system review completed and is only significant for what is documented in HPI. Allother systems reviewed are negative. Physical Exam GENERAL: Alert & oriented x 3; well-nourished and well-developed; pleasant mood and affect. Resting comfortably in wheelchair. LUMBAR EXAMINATION: Gross inspection of the lumbar spine demonstrates overall alignment is normal There is no gross deformity appreciated and no step off noted. There is no significant tenderness to palpation Straight Leg Raise is negative Right NORMAL HIP EXAM: No tenderness to palpation of hip. Range of motion is normal. There is no crepitus with range of motion. Left INJURED HIP EXAM: There is tenderness to palpation of hip. Positive Tenderness to Greater Trochanter. Range of motion includes PASSIVE: Flexion 120; IRF 30; ERF 50; Abduction 40. with ROM. The patient does not have significant pain at the extremes of these ranges of motion. Hip flexor strength is 0 out of 5. Logroll is negative. SI Joint Testing: Posterior pelvic thrust is negative, Tree's test is negative, Hip Impingement Testing: FADIR is negative. BILATERAL NORMAL KNEE EXAMINATION: No tenderness to palpation. Range of motion includes: Extension 0 deg; Flexion 120 deg. Alignment is normal. There is no crepitus with range of motion. There is no joint effusion. SKIN: Inspection and palpation of the skin of the lumbar region without eyrthema, edema, rashes, or lesions. VASCULAR: Bilateral lower extremity without edema, pallor, or rubor. PULMONARY: Unlabored respirations. Imaging - Radiographs of an AP pelvis and 2 views of the Left hip was reviewed which reveal mild joint space narrowing, superior acetabular osteophyte formation, no significant sclerosis or subchondral cyst formation - Left Hip MRI shows mild hip joint effusion and old labral pathology. Otherwise no significant abnormality with MRI. - Please see separate radiographic report for formal read by Radiology Assessment/Plan: 42 year old female with possible Central Post Stroke Pain vs Bursitis vs Hip Joint Pain. Discussed the case with Dr. Casarez who recommended left hip joint aspiration given small effusion noted on MRI to ensure that the fluid appears normal then if normal would recommend hip joint injection to rule out intra hip joint pathology. Discussed with Dr. Adam about joint aspiration and injection. He agrees to see the patient and further evaluate. Will follow the patient up after injection to see how her pain is doing. If no relief with Hip Joint injection will refer back to Dr. Dominguez for possible ablation vs underlying centralpost stroke pain. - Patient was counseled to the nature of their diagnosis and demonstrated understanding. Questions solicited and answered. - WBAT - Discussed options with the patient which includes: PT, NSAIDS, Tylenol/Acetaminophen, activity modifications, Ice/Heat. - Discussed cortisone injection into hip joint but that it can double the risk of a joint infectionif needing a hip replacement in the future. - Recommend referral to one of our joints specialist for further evaluation and discussion about possible surgery - Discussed if the patient is wanting surgery they will need to obtain dental clearance and visit adentist prior to arthroplasty procedure and visiting PCP for medical clearance. - Discussed with patient the necessity for antibiotic suppression prior to dental work and other invasive procedures - Rx: none - Recommend continued use of NSAID's, 2000 units Vitamin D daily, 1500 to 2000 mg Glucosamine/chondroitin daily, Voltaren Gel, and use of assistive devices for ambulation/balance - Return to Dr. Adam for hip joint aspiration and injection - Follow up after injection or MyChart message me with how injection helps - The patient understands and agrees with the plan. All questions answered. Ngoc Chandler PA-C 04/30/2023 4:02 PM ICAL WAREHOUSEMAN * Natalee Montano RN - 04/30/2023 3:08 PM CST Chief Complaint: Chief Complaint Patient presents with ??? Pain Hip left Wt 91.2 kg (201 lb) ICAL WAREHOUSEMAN documented in this encounter Plan of Treatment Not on file documented as of this encounter Visit Diagnoses Diagnosis Greater trochanteric bursitis of left hip- Primary Enthesopathy of hip region It band syndrome, left Chronic midline low back pain without sciatica Sacroiliitis (HCC) Sacroiliitis, not elsewhere classified Pain of left hip documented in this encounter Care Teams Tattoo And Body Artist Relationship Specialty Start Date End Date Jean Joy MD PCP - OBGYN 12/27/07 Jaden Thakur DO [address] [place] [address] PCP - Attributed-[facility] 09/10/19 06/28/23 Jaden Thakur DO [address] [place] [address] PCP - General Family Medicine Geriatric Medicine 01/05/23 documented as of this encounter
--- OUTSIDE RECORDS SUMMARY | 2024-03-19 20:34 | XMS_ITS | Encounter Summary ---
Author Organization [facility] Address [address] [facility] [place] [address] Care Team Providers Care Agriculture Research Director Name Role Phone Jean Joy MD Unavailable [phone] Jaden Thakur DO Unavailable [phone] Jaden Thakur DO Primary Care Provider + Reason for Referral * Evaluate & Treat (Routine) - Closed Specialty Diagnoses / Procedures Referred By Contac t Referred To Contact Orthopedics Diagnoses Pain of left hip Pain in joint of left shoulder Jazz Martin MD [facility] [address] [place] [address] [facility], [place] [address] Referral ID Status Reason Start Date Expiration Date V isits Requested Visits Authorized [id number] Closed Specialty Services Required 01/24/2023 01/24/2024 1 1 CAR MECHANIC * Radiology Services (Routine) - Closed Specialty Diagnoses / Procedures Referred By Contac t Referred To Contact CT Scan Diagnoses Acquired skull defect Procedures CT HEAD WO CONTRAST Rafael Hallman MD [address] [facility] [address] [place] [address] [facility] [address] [place] [address] Referral ID Status Reason Start Date Expiration Date Visits Re quested Visits Authorized [id number] Closed 03/28/2023 07/26/2023 1 1 CAR MECHANIC Reason for Visit * Reason Comments Establish Care Follow up Encounter Details Date Type Department Care Team (Late st Contact Info) Description 01/24/2023 11:30 AM RAIL CAR MECHANIC Office Visit [facility] - Neurosurgery [address] [place] [address], [place] [address] Rafael Hallman MD [address] [place] [address] [address] [facility] [place] [address] Acquired skull defect (Primary Dx); Pain of left hip; Pain in joint of left shoulder Social History Tobacco Use Types Packs/Day Years [...] Recorded Patient Health Questionnaire-2 Score 0 11/15/2022 [facility] - Occupational Stress [...] place to sleep or slept in a retirement (including now)? No 01/10/2023 Sex and Gender Information Value Date Recorded Sex Assigned at Not on file Gender Identity Not on file Sexual Orientation Not on file documented as of this encounter Last Filed Vital Signs Vital Sign Reading Time Taken Comments Blood Pressure 97/62 01/24/2023 12:38 PM RAIL CAR MECHANIC Pulse 88 01/24/2023 12:38 PM RAIL CAR MECHANIC Temperature 36.2 ??C (97.2 ??F) 01/24/2023 12:[address] Respiratory Rate 18 01/24/2023 12:38 PM RAIL CAR MECHANIC Oxygen Saturation 97% 01/24/2023 12:38 PM RAIL CAR MECHANIC Inhaled Oxygen Concentration - - Weight 86.6 kg (191 lb) 01/24/2023 12:38 PM RAIL CAR MECHANIC Height 162.6 cm (5' 4 ) 01/24/2023 12:38 PM RAIL CAR MECHANIC Body Mass Index 32.79 01/24/2023 12:38 PM RAIL CAR MECHANIC documented in this encounter Functional Status Functional [...] this encounter Patient Instructions * Patient Instructions* Lynette Jacques - 01/24/2023 12:53 PM RAIL CAR MECHANIC Follow up in [address] 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 Surgery and post op course were uncomplicated. Patient was discharged home the following day in good condition. Presents today for post op wound check and staple removal. Denies recent fever, malaise, wound drainage or tenderness. Primary complaint is left hip and shoulder pain. Had a steroid injection to left hip while in rehab, patient reports significant relief Review of Systems Cardiac-nil Resp-nil GI-nil -nil Exam BP 97/62 (BP SITE: LEFT ARM, BP POSITION: SITTING, BP Cuff Size: L) Pulse 88 Temp 97.2 ??F (36.2 ??C) Resp 18 Ht 1.626 m (5' 4 ) Wt 86.6 kg (191 lb) SpO2 97% Neuro: alert, oriented x 3 (name, place date), speech clear, fluent, ou4r, eomi, left facial droop,left hemiplegia Cranial incision with carla well approximated without surrounding erythema, or drainage. Carla removed in clinic today Imaging A/P Consuelo Darby is a 42 year old female s/p cranioplasty. - follow up with Dr Martin with head CT in 3 months - follow up with Ortho for left hip and shoulder pain Laura Patel, REMOTE INPATIENT CODER-DESIGN ENGINEERING MANAGER 3:35 PM 01/24/2023 Allergies as of 01/24/2023 - Complete 01/24/2023 Allergen Reaction Noted ??? Latex Rash 12/27/2007 [...] Right 01/10/2023 Right; right cranioplasty, replacement of [place] bone ??? Embolectomy Right 10/30/2022 Right; RIGHT [...] Hypertension Mother ??? Thyroid Disease Mother Social History Socioeconomic History ??? Marital status: Spouse name: Not on file ??? Number of children: Not on file ??? Years of education: Not on file ??? Highest education level: Not on file Occupational History ??? 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 Smoking status: [...] No Stress: No Stress Concern Present (01/10/2023) [facility] - Occupational Stress Questionnaire [...] Common femoral artery injury, right, subsequent encounter CAR MECHANIC documented in this encounter Plan of Treatment Scheduled Referrals Name Type Priority Associated Diagnoses Order Schedule Ref to Orthopedics - [facility] Outpatient Referral Routine Pain of left hip Pain in joint of left shoulder 1 Occurrences starting 01/24/2023 until 01/25/2024 documented as of this encounter Results * CT HEAD WO CONTRAST (04/05/2023 9:49 AM RAIL CAR MECHANIC) Anatomical Region Laterality Modality Head Computed Tomogra phy 04/05/2023 11:2 1 AM RAIL CAR MECHANIC Impressions 04/05/2023 12:03 PM RAIL CAR MECHANIC IMPRESSION: Compared to prior head CT 02/03/2023: [...] pseudomeningocele. Report dictated by Valdez Vieyra DO (Compliance Professional). I, Lonnie Rae MD have personally reviewed and interpreted this examination/study. 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 TECHNIQUE: CT of the head was performed without contrast according to standard protocol. CT dose reduction technique was used, including Automated Exposure Control. 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 CT dose reduction technique was used, including Automated Exposure Control. ADDITIONAL HISTORY: s/p cranioplasty with [place] bone on 01/10/23following a decompressive craniectomy for [...] pseudomeningocele. Report dictated by Valdez Vieyra DO (Compliance Professional). I, Lonnie Rae MD have personally reviewed and interpreted this examination/study. > Interpreting Provider: Lonnie Rae MD on 04/05/2023 12:03 PM Rafael Hallman MD CT ORDERABLES documented in this encounter Visit Diagnoses Diagnosis Acquired skull defect- Primary Other specified acquired deformity of head Pain of left hip Pain in joint of left shoulder Pain in joint, shoulder region Acquired skull defect Other specified acquired deformity of head documented in this encounter Care Teams Agriculture Research Director Relationship Specialty Start Date End Date Jean Joy MD PCP - OBGYN 12/27/07 Jaden Thakur DO [address] [place] [address] PCP - Attributed-[facility] 09/10/19 06/28/[address] [facility] [place] [address] PCP - General Family Medicine Geriatric Medicine 01/05/23 documented as of this encounter
--- OUTSIDE RECORDS SUMMARY | 2024-03-19 20:34 | XMS_ITS | Encounter Summary ---
Author Organization [facility] Address [address] [place] [address] Care Team Providers Care Weigher And Grader Name Role Phone Jean Joy MD Unavailable Jaden Thakur DO Unavailable [phone] Jaden Thakur DO Primary Care Provider + Reason for Visit * Reason Comments Establish Care Encounter Details Date Type Department Care Team (Late st Contact Info) Description 04/05/2023 4:00 PM WEBMASTER Office Visit [facility] - Urology [address] [place] [address] [address] [place] [id number] Dottie Monreal, TRAILER CHIEF-SUPERINTENDENT PLANT PROTECTION [address] [facility] DEPT OF [place]OLOGICAL [place] [address] Urinary retention (Primary Dx) Social History Tobacco Use Types [...] Recorded Patient Health Questionnaire-2 Score 0 11/15/2022 [facility] - Occupational [...] place to sleep or slept in a mcc (including now)? No 01/10/2023 Sex and Gender Information Value Date Recorded Sex Assigned at Not on file Gender Identity Not on file Sexual Orientation Not on file documented as of this encounter Last Filed Vital Signs Vital Sign Reading Time Taken Comments Blood Pressure 111/74 04/05/2023 1:00 PM WEBMASTER Pulse 72 04/05/2023 1:00 PM WEBMASTER Temperature - - Respiratory Rate - - Oxygen Saturation 98% 04/05/2023 1:00 PM WEBMASTER Inhaled Oxygen Concentration - - Weight 91.2 kg (201 lb) 04/05/2023 1:00 PM WEBMASTER Height 162.6 cm (5' 4 ) 04/05/2023 1:00 PM WEBMASTER Body Mass Index 34.5 04/05/2023 1:00 PM WEBMASTER documented in this encounter Functional Status Functional [...] this encounter Patient Instructions * Patient Instructions* Dottie Monreal APRN-CNP - 04/05/2023 1:21 PM WEBMASTER -To schedule an appointment please call [phone]. -To reach the [place]'s office please call -For any nursing or surgery questions please call [phone] -FAX: or ASTER documented in this encounter Progress Notes * Dottie Monreal APRN-CNP - 04/05/2023 1:03 PM CST [facility] Division of Urologic Surgery BRUCE Ansari Date of Visit: 04/05/2023 Patient Name: Consuelo Darby : 1980 Medical Record: [id number] Contact (home) [phone] (work) Age: [age] year old Sex: female Referring Physician: No referring provider defined for this encounter. Chief Complaint: Chief Complaint Patient presents with ??? Establish Care History of Present Illness: The patient is a 42 year old white female for follow up of urinary retention. She presented to U on 10/19/22 due to L sided weakness and dysarthria. She was found to have right sided MCA stroke and underwent revascularization initially. Repeat CTH showed edema, and she underwent hemicraniectomy on10/20/22. 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 During her stay, she developed urinary retention and has had Acevedo catheter in place. Clamp trial was attempted yesterday, but no voidtrial performed. Pt did not have urge to void and Urology was consulted for further recommendations. Patient is nonverbal at this time. Febrile to 102.6, otherwise VSS on RA. WBC 5.2, Hgb 10.4. Cr 0.45. Has had good urine output. After clamp trial yesterday, patient was clamped for about 4 hours with draining of about 1L afterwards. No urinary issues prior to admission. 12/15/22 Patient presents for follow up on urinary retention while hospitalized. States she had her acevedo removed a couple weeks ago and has been doing intermittent cath while in rehab and is now home and hasbeen voiding on her own since yesterday and has no concerns. She states she is currently on antibiotics for UTI. Patient in wheelchair, at bedside PVR 127ml TODAY 04/05/23 Patient is here to follow up on retention. She states she stopped the flomax at least a month ago and has been voiding well since last visit. She denies hematuria or dysuria. Denies recurrent UTIs. No complaints of incontinence. PVR 50 Past Medical History; Past Medical History: Diagnosis Date ??? Abdominal pain, right upper quadrant ??? Anemia ??? CVA (cerebral vascular accident) (CMS-HCC) ??? Essential hypertension ??? GERD (gastroesophageal reflux disease) ??? 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 History of hypertension gestational hypertension Past Surgical History: Past Surgical History: Procedure Laterality [...] Right 01/10/2023 Right; right cranioplasty, replacement of [place] bone ??? Embolectomy Right 10/30/2022 Right; RIGHT ILEO femoral thrombectomy VIA CUTDOWN. REPAIR OF FEMORAL ARTERY WITH PATCH. ANGIOGRAM ??? ENDOSCOPY, UPPER N/A 2022 N/A; ESOPHAGOGASTRODUODENOSCOPY (EGD) DIAGNOSTIC with PEG Placement ??? ENDOSCOPY, UPPER N/A 11/10/2022 N/A; EGD, POSS. EX-LAP LEVEL 3 @ 1500 Current Medications: Current Outpatient Medications Medication Sig Dispense Refill ??? aspirin (Aspirin) 81 MG chew tablet Take 125 mg by mouth once daily ??? baclofen (Lioresal) 5 MG TABS Take 1 (one) tablet by mouth at bedtime PLEASE REQUEST ALL FUTUREREFILLS OF THIS MEDICATION FROM YOUR PRIMARY CARE DOCTOR. (Patient not taking: Reported on 04/05/2023) 90 tablet 1 ??? bethanechol (Urecholine) 25 [...] CARE DOCTOR. 270 capsule 1 ??? HYDROcodone-acetaminophen ([place]) 10-325 MG tablet TAKE 1/2 TO 1 TABLET BY MOUTH EVERY 6 HOURS NEEDED FOR PAIN ??? HYDROcodone-acetaminophen ([place]) 5-325 MG tablet (Patient not taking: Reported on 04/05/2023) ??? hydrOXYzine HCl (Atarax) 25 MG tablet Take 1 (one) tablet by mouth every 8 hours as needed (Patient not taking: Reported on 04/05/2023) ??? hydrOXYzine HCl (Atarax) 25 MG tablet Take 1 (one) tablet by mouth every 6 hours as needed ??? levETIRAcetam (Keppra) 500 MG tablet TAKE 1 TABLET BY MOUTH TWICE DAILY 60 tablet 5 ??? metoprolol tartrate IR (Lopressor) 25 MG tablet Take 1 (one) tablet by mouth 2 times daily ??? naloxone HCl (Narcan) 4 MG/0.1ML nasal spray SPRAY 1 SPRAY IN THE NOSTRIL NEEDED FOR OPIOID REVERSAL. MAY REPEAT EVERY 2-3 MINUTES IN ALTERNATING NOSTRILS UNTIL MEDICAL ASSISTANCE ARRIVES ??? nitrofurantoin monohyd macro crystals (Macrobid) 100 [...] mouth at bedtime No current facility-administered medications for this visit. Allergies; Latex and Vancomycin Family History: Family History Problem Relation Name Age of Onset ??? Hypertension Mother ??? Thyroid Disease Mother ??? Diabetes Maternal Grandmother ??? Cancer - Breast Maternal Aunt ??? Cancer Maternal Grandfather Lung ??? Diabetes Maternal Grandfather Social History: Social History Socioeconomic History ??? Marital status: Spouse name: Not on file ??? Number of children: Not on file ??? Years of education: Not on file ??? Highest education level: Not on file Occupational History ??? 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 Smoking status: [...] No Stress: No Stress Concern Present (01/10/2023) [facility] [place] [facility] - Occupational Stress Questionnaire ??? Feeling of Stress : Only a little Housing Stability: Low Risk (01/10/2023) Housing Stability Vital Sign ??? Unable to Pay for Housing in the Last Year: No ??? Number of Places Lived in the Last Year: 1 ??? Unstable Housing in the Last Year: No Review of Systems: General: Negative Skin: Negative Eyes: Negative Ears/nose/mouth: Negative Lungs:Negative Heart:Negative Gastrointestinal: negative Genitourinary: See HPI Musculoskeletal: Negative Nervous system: Negative Reproductive system: Negative Hematologic: Negative Lymphatic: Negative Endocrine: Negative Physical Exam: Vital Signs: Ht 1.626 m (5' 4 ) Wt 91.2 kg (201 lb) PVR per bladder scanner: 50ml Imaging (images and reports reviewed): Laboratory Studies: Office Visit on 04/05/23 URINALYSIS AUTO - POINT OF CARE (AMB) [facility] Result Value Ref Range Glucose UA - Bilirubin UA POCT 1+ Ketones UA POCT 0.5+ Specific [place] UA 1.025 Blood Urine POCT - pH UA 6.0 Protein UA 0.15+ Urobilinogen UA - Nitrite UA - WBC UA - Microbiology: Pathology: No new path Diagnosis: Urinary retention Recommendations: -follow up prn 20 minutes were spent with patient. >50% were spent counseling patient. Patient's questions were answered and patient agrees with plan. BRUCE Ansari 04/05/2023 1:03 PM ASTER documented in this encounter Procedure Notes * Barbara Erickson LPN - 04/05/2023 1:23 PM CSTAssociated Order(s): PROC BLADDER SCAN Procedure(s): MD MSR PVR U&/BLADD CAPCTY US NON Pre-Procedure Diagnose(s): Urinary retention 50ml ASTER documented in this encounter Plan of Treatment Not on file documented as of this encounter Procedures Procedure Name Priority Date/Time Associated Diagnosis Comments MD MSR PVR U&/BLADD CAPCTY US NON Routine 04/05/2023 1:23 PM WEBMASTER Urinary retention URINALYSIS AUTO - POINT OF CARE (AMB) [facility] Routine 04/05/2023 1:08 PM WEBMASTER Urinary retention documented in this encounter Results * MD MSR PVR U&/BLADD CAPCTY US NON (04/05/2023 1:23 PM WEBMASTER) Narrative Barbara Erickson LPN - 04/05/2023 1:23 PM WEBMASTER Barbara Erickson LPN ? 04/05/2023 ??1:35 PM 50ml Dottie BARRERA PROCEDURE/MINOR SURGICAL ORDERABLES * URINALYSIS AUTO - POINT OF CARE (AMB) [facility] (04/05/2023 1:08 PM WEBMASTER) Glucose UA - [facility] [address] Bilirubin UA POCT 1+ [facility] [address] Ketones UA POCT 0.5+ [facility] ARE [address] Specific [place] UA 1.[address] [facility] [address] Blood Urine POCT - [facility] [address] pH UA 6.0 [facility] [address] Protein UA 0.15+ [facility] [address] Urobilinogen UA - [facility] [address] Nitrite UA - [facility] [address] WBC UA - [facility] [address] [facility] Urine URINE / Unknown 04/05/2023 1 :08 PM WEBMASTER Dottie Monreal TRAILER CHIEF-SUPERINTENDENT [employer] LAB - POINT OF CARE ORDERABLES JER [address] [place] [address], [facility] [phone] documented in this encounter Visit Diagnoses Diagnosis Urinary retention- Primary Retention of urine, unspecified documented in this encounter Care Teams Weigher And Grader Relationship Specialty Start Date End Date Jean Joy MD PCP - OBGYN 12/27/07 Jaden Thakur DO [address] [place] [address] PCP - Attributed-[facility] ST[facility] 09/10/19 06/28/23 Jaden Thakur DO [address] [place] [address] PCP - General Family Medicine Geriatric Medicine 01/05/23 documented as of this encounter
--- OUTSIDE RECORDS SUMMARY | 2024-03-19 20:34 | XMS_ITS | Encounter Summary ---
Author Organization [facility] Address [address] [place] [address] Care Team Providers Care Net Repairer Name Role Phone Jean Joy MD Unavailable [phone] Jaden Thakur DO Unavailable [phone] Jaden Thakur DO Primary Care Provider + Reason for Visit * Reason Comments Establish Care Suture removal Encounter Details Date Type Department Care Team (Late st Contact Info) Description 02/21/2023 10:45 AM MOTION PICTURE DIRECTOR Office Visit [facility] - Neurosurgery [address] [place] [address] [address] [place] [id number] Vanessa Veras APRN-RECREATION ASSISTANT [address] [address] Acquired skull defect (Primary Dx) Social History Tobacco Use Types [...] Recorded Patient Health Questionnaire-2 Score 0 11/15/2022 [facility] - Occupational [...] in a group home (including now)? No 01/10/2023 Sex and Gender Information Value Date Recorded Sex Assigned at Not on file Gender Identity Not on file Sexual Orientation Not on file documented as of this encounter Last Filed Vital Signs Vital Sign Reading Time Taken Comments Blood Pressure 117/84 02/21/2023 10:48 AM MOTION PICTURE DIRECTOR Pulse 82 02/21/2023 10:48 AM MOTION PICTURE DIRECTOR Temperature 36.4 ??C (97.5 ??F) 02/21/2023 10:[address] Respiratory Rate - - Oxygen Saturation 97% 02/21/2023 10:48 AM MOTION PICTURE DIRECTOR Inhaled Oxygen Concentration - - Weight 89.4 kg (197 lb) 02/21/2023 10:48 AM MOTION PICTURE DIRECTOR Height 162.6 cm (5' 4 ) 02/21/2023 10:48 AM MOTION PICTURE DIRECTOR Body Mass Index 33.81 02/21/2023 10:48 AM MOTION PICTURE DIRECTOR documented in this encounter Functional Status Functional [...] this encounter Patient Instructions * Patient Instructions* Vanessa Veras APRN-CNP - 02/21/2023 11:00 AM MOTION PICTURE DIRECTOR Follow up with Dr. Martin in [address] prior Wound care: - you may wash gently; no scrubbing or soaking until wound is completely healed - do not apply lotions or salves to your incision until wound is completely healed - call immediatly if you notice new redness, swelling, or drainage from your incision For any questions please call Lynette [phone] ON PICTURE DIRECTOR documented in this encounter Progress Notes * Vanessa Veras APRN-CNP - 02/21/2023 12:16 PM CST Neurosurgery Clinic Progress Note Chief Complaint (CC): postop follow up cranioplasty HISTORY OF PRESENT ILLNESS (HPI): Patient is a 42 year old female with a PMH of anemia, HTN, GERD, and hepatocellular injury who presents to clinic today for a postop appointment and wound check. Patient originally underwent decompressive craniectomy for stroke secondary to emboli from cardiac vegetations on 10/20/[address] Martin. She then subsequently underwent cranioplasty with three affiliated bone on 01/10/[address] Martin. Surgery and post op course were uncomplicated. Patient was discharged home the following day in good condition. When she was last seen in clinic on 01/24/23, she was doing well. Convent were removed at that time.However, the remaining sutures near her parietal bone were left in place. Patient presents to clinic today accompanied by her husabnd. Since she was last seen, she reports tenderness near her suture site above her right ear. Also reports edema and possible fluid collectionnear her right temporal bone - she reports this has been present since the surgery and the size waxes/wanes. She also endorses a headache. She was seen in the ED on 02/03/23 for these concerns and repeat CTH demonstrated improvement in fluid collection. She also notes issues with insurance being discontinued in the next 1-2 months and would like to move up her appointment with Dr. Martin to the [facility] March secondary to this. Denies fever, chills. Continues to endorse left upper extremity weakness. PMH: Past Medical History: Diagnosis Date ??? Abdominal pain, right upper quadrant ??? Anemia ??? CVA (cerebral vascular accident) (CMS-HCC) ??? Essential hypertension ??? GERD (gastroesophageal reflux disease) ??? 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 History of hypertension gestational hypertension PSH: Past Surgical History: Procedure Laterality Date ??? [...] Right 01/10/2023 Right; right cranioplasty, replacement of three affiliated bone ??? Embolectomy Right 10/30/2022 Right; RIGHT ILEO femoral thrombectomy VIA CUTDOWN. REPAIR OF FEMORAL ARTERY WITH PATCH. ANGIOGRAM ??? ENDOSCOPY, UPPER N/A 2022 N/A; ESOPHAGOGASTRODUODENOSCOPY (EGD) DIAGNOSTIC with PEG Placement ??? ENDOSCOPY, UPPER N/A 11/10/2022 N/A; EGD, POSS. EX-LAP LEVEL 3 @ 1500 Meds: Current Outpatient Medications Medication ??? baclofen (Lioresal) 5 MG TABS ??? bethanechol (Urecholine) 25 MG tablet ??? Cetirizine HCl (ZYRTEC PO) ??? Cholecalciferol 25 MCG (1000 UT) ??? cyclobenzaprine (Flexeril) 5 MG tablet ??? diclofenac sodium (Voltaren) 1 % gel ??? DULoxetine (Cymbalta) 60 MG capsule ??? fluconazole (Diflucan) 150 MG tablet ??? gabapentin (Neurontin) 300 MG capsule ??? HYDROcodone-acetaminophen ([place]) 5-325 MG tablet ??? hydrOXYzine HCl (Atarax) 25 MG tablet ??? levETIRAcetam (Keppra) 500 MG tablet ??? metoprolol tartrate IR (Lopressor) 25 MG tablet ??? nitrofurantoin monohyd macro crystals (Macrobid) 100 MG capsule ??? oxyCODONE, immediate release, (Roxicodone) 5 MG tablet ??? pantoprazole EC (Protonix) 40 MG tablet ??? polyethylene glycol 3350 (Miralax) 17 g packet ??? tamsulosin (Flomax) 0.4 MG capsule ??? verapamil SR 24hr (Verelan) 120 MG capsule No current facility-administered medications for this visit. Allergies Allergies Allergen Reactions ??? 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 Fever Social: Social History Tobacco Use ??? Smoking status: Former Packs/day: .5 Types: Cigarettes Quit date: 2015 Years since quittin.9 ??? Smokeless tobacco: Never Substance Use Topics ??? Alcohol use: No Alcohol/week: 0.0 - 1.7 standard drinks of alcohol Comment: Occasional Family: Family History Problem Relation Name Age of Onset ??? Hypertension Mother ??? Thyroid Disease Mother ??? Diabetes Maternal Grandmother ??? Cancer - Breast Maternal Aunt ??? Cancer Maternal Grandfather Lung ??? Diabetes Maternal Grandfather REVIEW OF SYSTEMS Pertinent items are noted in HPI. PHYSICAL EXAM BP 117/84 (BP SITE: RIGHT ARM, BP POSITION: SITTING, BP Cuff Size: A) Pulse 82 Temp 97.5 ??F (36.4 ??C) (Temporal) Ht 1.626 m (5' 4 ) Wt 89.4 kg (197 lb) SpO2 97% General: NAD Cardiovascular: warm, well profused Respiratory: non-labored breathing Abdominal: Soft, non tender, non distended Integument: right cranial incision with some retained suture near temporal/pariteal bone; area of fluctuance near right temporal bone w/o erythema or tenderness Vascular: capillary refill <3 seconds Neuro: alert, oriented x 3 (name, place date), speech clear, fluent, ou4r, eomi, left facial droop,left hemiplegia RADIOLOGY: PROCEDURE: CT HEAD WO CONTRAST, DATE/TIME OF EXAM: 01/11/2023 3:31 AM, LOCATION [facility] ?? INDICATION: M95.2: Acquired skull defect ?? ADDITIONAL CLINICAL INFORMATION: Ordering Provider Reason For Exam: s/p cranioplasty Technologist Note: Additional: ?? EXAMINATION: Computed tomography (CT) of the head without contrast ?? TECHNIQUE: CT of the head was performed without contrast according to standard protocol. ?? COMPARISON: 12/21/2022. ?? FINDINGS: ?? There has been interval right cranioplasty with replacement of the three affiliated bone flap. Some pneumocephalus and a small extra-axial fluid/hemorrhage collection are noted underlying the craniotomy site. There is a extracranial subgaleal fluid collection measuring approximately 1 cm in maximal thickness, which may represent surgical seroma versus a pseudomeningocele. ?? Again demonstrated is a developing encephalomalacia in the right cerebral hemisphere and the right basal ganglia, consistent with an evolving chronic right MCA infarct. There is mild cerebral volume loss with associated ex vacuo ventricular dilatation. The basal cisterns are patent. No mass effect or midline shift is seen. ?? The visualized portions of the orbits, paranasal sinuses, and mastoids appear normal. ? IMPRESSION: ?? 1. Postsurgical changes of interval right cranioplasty with placement of the three affiliated bone flap. A 1 cm extracranial/subgaleal fluid collection may represent surgical seroma versus a pseudomeningocele cell. ?? 2. Further evolution of a chronic right MCA infarct. EXAM: CT HEAD WO CONTRAST, DATE/TIME OF EXAM: 02/03/2023 7:37 PM, LOCATION: [facility] ?? HISTORY: R51.9: Acute intractable headache, unspecified headache type ?? ADDITIONAL CLINICAL INFORMATION: Ordering Provider Reason For Exam: Rule out ICH. ?? EXAMINATION: CT scan of the head without intravenous contrast ?? TECHNIQUE: CT of the head was performed without intravenous contrast according to standard protocol. CT dose reduction technique was used, including Automated Exposure Control. ?? COMPARISON: Head CT 01/11/2023. ?? FINDINGS: ?? BRAIN PARENCHYMA/VENTRICLES/EXTRA-AXIAL SPACES/BONES: Re-demonstrated postsurgical changes of right frontoparietotemporal craniotomy/cranioplasty. Interval resolution of previously seen cerebral convexity pneumocephalus. Evolving extra-axial liquid/blood products underlying the craniotomy/cranioplasty site that now measures up to 5 mm in thickness, which has slightly decreased compared to prior examination. ?? Re-demonstrated evolving encephalomalacia of the right frontal, [...] corresponding to the left MCA vascular territory. ?? Scattered white matter hypodensities, which are nonspecific but likely represents the sequela of chronic microangiopathic change. Mild generalized parenchymal volume loss. ?? No evidence of a new acute intracranial hemorrhage. No significant midline shift or brain herniation. ?? No evidence of hydrocephalus. Basal cisterns are patent. ?? OTHER EXTRACRANIAL STRUCTURES: Slightly decreased liquid collection along the right frontoparietotemporal scalp overlying the craniotomy/cranioplasty that now measures 8.5 x 7.3 x 1.2 cm (AP x CC x TV; , 06/29), previously 11 x 8.3 x 2 cm when measured similarly. This either represents an evolving postoperative collection/seroma versus a pseudomeningocele. Visualized paranasal sinuses and mastoids demonstrate no significant abnormality. Orbits are unremarkable. ? IMPRESSION: Compared to prior head CT 01/11/2023: 1.Re-demonstrated postsurgical changes of right frontoparietotemporal craniotomy/cranioplasty. Interval resolution of previously seen cerebral convexity pneumocephalus. Evolving extra-axial liquid/blood products underlying the craniotomy/cranioplasty site that now measures up to 5 mm in thickness, which has slightly decreased compared to prior examination. No significant midline shift or brain herniation. ?? 2.Further evolution of a large chronic right MCA vascular territory infarct and small chronic left MCA vascular territory infarct as described. ?? 3.No evidence of a new acute intracranial hemorrhage. ?? 4.Slightly decreased liquid collection along the right frontoparietotemporal scalp overlying the craniotomy/cranioplasty that now measures 8.5 x 7.3 x 1.2 cm (AP x CC x TV), which either represents an evolving postoperative collection/seroma versus a pseudomeningocele. Assessment/Plan: Consuelo Darby is a 42 year old female s/p cranioplasty with three affiliated bone with Dr. Martin on 01/10/23following a decompressive craniectomy for stroke secondary to emboli from cardiac vegetations who presents to clinic for a wound check and suture removal. She has been progressing as expected. One suture near her parietal bone was able to be removed; the remaining scattered sutures near her temporal bone had mostly healed under the skin. Incision is healing well without erythema or drainage. CTH reviewed from immediate postop to 02/03/23 which demonstrated interval improvement in right frontoparietotemporal fluid collection (seroma vs pseudomeningocele). Reassured patient this will resolve over time. Wound care instructions discussed with patient. Patient is to follow up with Dr. Martin in [address] prior (or sooner, per patient request, secondary to insurance issues). BRUCE Arreola 02/21/2023 12:16 PM CC: Jaden Thakur DO (PCP) ON PICTURE DIRECTOR documented in this encounter Plan of Treatment Not on file documented as of this encounter Visit Diagnoses Diagnosis Acquired skull defect- Primary Other specified acquired deformity of head documented in this encounter Care Teams Net Repairer Relationship Specialty Start Date End Date Jean Joy MD PCP - OBGYN 12/27/07 Jaden Thakur DO [address] [place] [address] PCP - Attributed-[facility] STL 09/10/19 06/28/23 Jaden Thakur DO [address] [place] [address] PCP - General Family Medicine Geriatric Medicine 01/05/23 documented as of this encounter
--- OUTSIDE RECORDS SUMMARY | 2024-03-19 20:34 | XMS_ITS | Encounter Summary ---
Author Organization [facility] Address [address] [place] [address] Care Team Providers Care Industrial Engineer Name Role Phone Jean Joy MD Unavailable Jaden Thakur DO Unavailable [phone] Jaden Thakur DO Primary Care Provider + Reason for Visit * Reason Comments Consultation Pain Hip * Consultation (Routine) - Closed Specialty Diagnoses / Procedures Referred By Jimena muller Referred To Contact Diagnoses It band syndrome, left Greater trochanteric bursitis of left hip Ngoc Chandler PA-C [address] [place] [address] Julio Dominguez MD [address] [place] [address] Referral ID Status Reason Start Date Expiration Date V isits Requested Visits Authorized [id number] Closed Specialty Services Required 02/21/2023 02/21/2024 1 1 Encounter Details Date Type Department Care Team (Late st Contact Info) Description 03/27/2023 2:00 PM GRID INSPECTOR Office Visit [facility] - Pain Mgmt [address] [place] [address] Ngoc Chandler PA-C [address] [place] [address] Julio Dominguez MD [address] [facility] [facility] [address] [place] [address] Pain of left hip (Primary Dx); It band syndrome, left; Greater trochanteric bursitis of left hip Social History Tobacco Use [...] Recorded Patient Health Questionnaire-2 Score 0 11/15/2022 [facility] [place] [facility] Occupat ional Health - Occupational Stress [...] Sign Reading Time Taken Comments Blood Pressure 138/75 03/27/2023 1:35 PM GRID INSPECTOR Pulse 90 03/27/2023 1:35 PM GRID INSPECTOR Temperature - - Respiratory Rate 16 03/27/2023 1:35 PM GRID INSPECTOR Oxygen Saturation - - Inhaled Oxygen Concentration - - Weight 89.4 kg (197 lb) 03/27/2023 1:35 PM GRID INSPECTOR Height - - Body Mass Index 33.81 02/21/2023 10:48 AM GRID INSPECTOR documented in this encounter Functional Status Functional [...] No 01/10/2023 documented as of this encounter Progress Notes * Julio Dominguez MD - 03/27/2023 3:07 PM CST Images from the original note were not included. Subjective: Consultation and Pain Hip Consuelo Darby is a 42 year old female presenting for L hip pain. HPI: Patient is a 42 yo F with L hip pain present for the past several months since having a strokein October 2022. She reports that this pain has been constant since then and she describes it as a dull, aching pain. She reports pain mainly over the lateral aspect of the hip. She denies any radiation of pain down the leg or up the back. She has had two steroid injections of the L trochanteric bursa in attempt to treat this pain. The first was in November 2022 which provided significant relief,while the second was in February 2023 and provided no relief. Since then, she has been using voltaren gel and norco with little relief of pain. She has loss of movement of the LLE below the hip since her stroke; this has resulted in her having to sit for long periods of time which exacerbates the hip pain. She has tenderness to palpation over the left proximal lateral hip and has maintained sensation throughout her LLE despite weakness in her LLE following the stroke. 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 Today's pain index score is 5 out of 10 and the worst index score in the last 30 days is 10 out of 10. Functional disability index score of 34 today. Pain can be described as sharp and throbbing aching and associated symptoms include None. Activities that increase pain include general physical activity. Factors that improve pain include sitting, lying down, heat, ice, walking, medicine and massage. ?? Conservative treatments that have been tried and failed include Ice, tylenol, NSAIDS,activity modification,physical therapy, and cortisone injections. Physical therapy completed most recently: in currently at Location: [facility]. for 6 +weeks. ?? Medication therapy has included: Hydrocodone, Voltaren gel, Cymbalta,Gabapentin, Baclofen, Oxycodone, Flexeril NSAIDS that have been tried include Diclofenac Gel. ?? Blood thinners currently taking include Aspirin 325 and are prescibed by Dr. Michael, guide cruise ?? Hx of 1 hip injection at the rehab facility with improvement in pain Previous Records Reviewed - visit w/ orthopedics 02/15/23 Imaging Results Reviewed - L hip xray 02/03/23 showed no degenerative changes. Last Physical Therapy Course - extensive PT following patient's stroke from -12/2022 Current Medication: Current Outpatient Medications on File Prior to [...] CARE DOCTOR. 270 capsule 1 ??? HYDROcodone-acetaminophen ([place]) 5-325 MG tablet ??? hydrOXYzine HCl (Atarax) [...] facility-administered medications on file prior to visit. Allergies: Allergies Allergen Reactions ??? 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 Fever Surgical history: Past Surgical History: Procedure Laterality Date ??? [...] Right 01/10/2023 Right; right cranioplasty, replacement of squaxin bone ??? Embolectomy Right 10/30/2022 Right; RIGHT ILEO femoral thrombectomy VIA CUTDOWN. REPAIR OF FEMORAL ARTERY WITH PATCH. ANGIOGRAM ??? ENDOSCOPY, UPPER N/A 2022 N/A; ESOPHAGOGASTRODUODENOSCOPY (EGD) DIAGNOSTIC with PEG Placement ??? ENDOSCOPY, UPPER N/A 11/10/2022 N/A; EGD, POSS. EX-LAP LEVEL 3 @ 1500 OBJECTIVE: Vital signs: BP 138/75 Pulse 90 Resp 16 Wt 89.4 kg (197 lb) 03/27/2023 1:35 PM 02/15/2023 2:51 PM 01/24/2023 12:38 PM 01/05/2023 10:44 AM 12/21/2022 9:16 AM 07/07/2013 7:55 PM Pain Scores Pain Score Five EIGHT SIX Zero EIGHT Five Past Results: Recent Labs Component Name 01/10/23 1130 10/23/22202810/23/22 1547 ESR - - 55* PT 11.9* - - INR 0.9 - - - = values in this interval not displayed. Review of Systems Constitutional: Negative. Negative for chills and fever. HENT: Negative. Negative for congestion and ear pain. Eyes: Negative. Negative for blurred vision, double vision and pain. Respiratory: Negative. Negative for cough and shortness of breath. Cardiovascular: Negative. Negative for chest pain and orthopnea. Gastrointestinal: Negative. Genitourinary: Negative. Musculoskeletal: Positive for joint pain. Skin: Negative. Negative for itching and rash. Neurological: Positive for focal weakness (LLE 2/2 stroke). All other systems reviewed and are negative. Physical Exam Vitals and nursing note reviewed. Exam conducted with a regional director present. Constitutional: General: She is awake. She is not in acute distress. Appearance: Normal appearance. HENT: Head: Normocephalic and atraumatic. Eyes: Extraocular Movements: Extraocular movements intact. Cardiovascular: Rate and Rhythm: Normal rate. Pulses: Normal pulses. Pulmonary: Effort: Pulmonary effort is normal. Abdominal: General: Abdomen is flat. Musculoskeletal: Lumbar back: No tenderness. Negative left straight leg raise test. Right hip: No tenderness. Normal range of motion. Left hip: Tenderness present. No deformity or crepitus. Normal range of motion. Left upper leg: Normal. Left knee: Normal. Left lower leg: Normal. Legs: Comments: Moderate TTP over lateral aspect of L hip. Mild TTP to anterior aspect of L hip. Limited ROM 2/2 stroke unable to assess strength Sensation intact BLE Neurological: Mental Status: She is alert. Motor: Weakness present. Comments: Absent motor function of L lower extremity below hip. Absent motor function of L upper extremity. Sensation of L lower extremity intact. Psychiatric: Mood and Affect: Mood normal. Behavior: Behavior normal. ASSESSMENT: ICD-10-CM 1. It band syndrome, left M76.32 AMB REFERRAL TO PAIN CLINIC 2. Greater trochanteric bursitis of left hip M70.62 AMB REFERRAL TO PAIN CLINIC Consuelo Darby has L hip pain likely secondary to trochanteric bursitis or central post-stroke pain given history of recent stroke. Previous relief of pain following trochanteric bursa steroid injection makes bursitis more likely, however patient may also be experiencing central post-stroke pain in her hip. XR imaging does not reflect any hip joint pathology. PLAN: Patient to have MRI of the L hip next week. If trochanteric bursitis is present, will proceedwith xray-guided steroid injection of the bursa. If bursitis is not appreciated, will consider other options including nerve block trials prior to ablation. Treatment: No orders of the defined types were placed in this encounter. No orders of the defined types were placed in this encounter. Procedures: pending review of MRI hip Diagnostic Imaging: jeny Crowley MS3 I have verified the documentation of the medical student including all history, exam, and medical decision-making details. I have personally performed a physical exam and have personally reviewed thedata to support my medical decision-making as outlined in the medical student???s note, and I arrive independently at the same conclusion. 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 Today's pain index score is 5 out of 10 and the worst index score in the last 30 days is 10 out of 10. Functional disability index score of 34 today. Pain can be described as sharp and throbbing aching and associated symptoms include None. Activities that increase pain include general physical activity. Factors that improve pain include sitting, lying down, heat, ice, walking, medicine and massage. Conservative treatments that have been tried and failed include Ice, tylenol, NSAIDS,activity modification,physical therapy, and cortisone injections. Physical therapy completed most recently: in currently at Location: [facility]. for 6 +weeks. Medication therapy has included: Hydrocodone, Voltaren gel, Cymbalta,Gabapentin, Baclofen, Oxycodone, Flexeril NSAIDS that have been tried include Diclofenac Gel. Blood thinners currently taking include Aspirin 325 and are prescibed by Dr. Michael, guide cruise Hx of 1 hip injection at the rehab facility with improvement in pain INSPECTOR documented in this encounter Plan of Treatment Not on file documented as of this encounter Visit Diagnoses Diagnosis Pain of left hip- Primary It band syndrome, left Greater trochanteric bursitis of left hip Enthesopathy of hip region documented in this encounter Care Teams Industrial Engineer Relationship Specialty Start Date End Date Jean Joy MD PCP - OBGYN 12/27/07 Jaden Thakur DO [address] [place] [address] PCP - Att[facility] 09/10/19 06/28/23 Jaden Thakur DO [address] [place] [address] PCP - General Family Medicine Geriatric Medicine 01/05/23 documented as of this encounter
--- OUTSIDE RECORDS SUMMARY | 2024-03-19 20:34 | XMS_ITS | Encounter Summary ---
Author Organization [facility] Address [address] [facility] [place] [address] Care Team Providers Care Laboratory Operations Coordinator Name Role Phone Jean Joy MD Unavailable [phone] Jaden Thakur DO Unavailable [phone] Jaden Thakur DO Primary Care Provider + Reason for Referral * Consultation (Routine) - Closed Specialty Diagnoses / Procedures Referred By Conttorin t Referred To Contact Diagnoses It band syndrome, left Greater trochanteric bursitis of left hip Ngoc Chandler PA-C [address] [place] [id number] Julio Dominguez MD [address] [facility] [address] [place] [address] Referral ID Status Reason Start Date Expiration Date V isits Requested Visits Authorized [id number] Closed Specialty Services Required 02/21/2023 02/21/2024 1 1 [place] BRAND AMBASSADOR Encounter Details Date Type Department Care Team (Late st Contact Info) Description 02/21/2023 Orders Only [facility] - Orthopedics [address] [place] [address], [place] [address] Ngoc Chandler PA-C [address] [place] [address] It band syndrome, left ; Greater trochanteric bursitis of left hip Social [...] Recorded Patient Health Questionnaire-2 Score 0 11/15/2022 [facility]at ional [facility] - [...] place to sleep or slept in a fpc (including now)? No 01/10/2023 Sex and Gender [...] as of this encounter Plan of Treatment Scheduled Referrals Name Type Priority Associated Diagnoses Orde r Schedule AMB REFERRAL TO PAIN CLINIC Outpatient Referral Routine It band syndrome, left Greater trochanteric bursitis of left hip 1 Occurrences starting 02/21/2023 until 02/22/2024 documented as of this encounter Visit Diagnoses Diagnosis It band syndrome, left- Primary Greater trochanteric bursitis of left hip Enthesopathy of hip region documented in this encounter Care Teams Laboratory Operations Coordinator Relationship Specialty Start Date End Date Jean Joy MD PCP - OBGYN 12/27/07 Jaden Thakur DO [address] [place] [address] PCP - Att[facility] 09/10/19 06/28/23 Jaden Thakur DO [address] [place] [id number] PCP - General Family Medicine Geriatric Medicine 01/05/23 documented as of this encounter
--- OUTSIDE RECORDS SUMMARY | 2024-03-19 20:34 | XMS_ITS | Encounter Summary ---
Author Organization [facility] Address [address] [facility] [place] [address] Care Team Providers Care Chief Analytics Officer Name Role Phone Jean Joy MD Unavailable [phone] Jaden Thakur DO Unavailable [phone] Arlyn Hernandez RN Unavailable [phone] Doreen Aviles Unavailable [phone] Jaden Thakur DO Primary Care Provider + Encounter Details Date Type Department Care Team (Latest Contact Info) Description 01/05/2023 Travel Social History Tobacco Use Types Packs/Day [...] Never 10/19/2022 Overall Financial Resource Strain (CARDIA) Corinna r Date Recorded How hard is it for you to pa y for the very basics like food, housing, medical care, and heating? Not very hard 10/19/2022 PHQ-2 Answer Date Recorded Patient Health Questionnaire-2 Score 0 11/15/2022 [facility] [place] of Occupat ional Health - Occupational Stress [...] place to sleep or slept in a longterm (including now)? 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
--- OUTSIDE RECORDS SUMMARY | 2024-03-19 20:34 | XMS_ITS | Encounter Summary ---
Author Organization [facility] [employer] Address [address] [place] [address] Care Team Providers Care Mortgage Analyst Name Role Phone Jean Joy MD Unavailable [phone] Jaden Thakur DO Unavailable [phone] Arlyn Hernandez RN Unavailable Doreen Aviles Unavailable Jaden Thakur DO Primary Care Provider + Reason for Visit * Auth/Cert (Routine) Specialty Diagnoses / Procedures Referred By Conttorin t Referred To Contact Diagnoses Acquired skull defect acquired skull defect Procedures MD REPAIR SKULL DEFECT,>5CM CRANIOPLASTY Referral ID Status Reason Start Date Expiration Date Visits Re quested Visits Authorized [id number] 1 1 Encounter Details Date Type Department Care Team (Late st Contact Info) Description 01/10/2023 9:20 AM CDT - 01/10/2023 12:27 PM CDT Surgery [facility] [address] [place] [id number] Jazz Martin MD [address] [address] right cranioplasty, replacement of shungnak bone Surgery Details Date/Time Status Location OR Service Patient Class Case Class Case Type Trauma Case? 01/10/2023 9:20 AM Posted [facility] OR OR Neurosurgery Hotel Administrative Assistant Admit Surgical Elective > 5 days Panel 1 Procedure LRB Anes Op Region Wound Class Comments right cranioplasty, replacem ent of shungnak bone Right General Head Clean Surgeon Surgeon Role Service Panel Jazz Martin MD Primary Neurosurgery 1 Jarvis Gagnon MD Resident - Assisting Neurosu rgery 1 Case Notes LATEX ALLERGY Special Needs SUPINE--Bone flap verified in freezer synthes plating system--Anne Marie notified mk 01/08 documented in this encounter Social History Tobacco [...] Patient Health Questionnaire-2 Score 0 11/15/2022 [facility] ional Health - Occupational Stress [...] to sleep or slept in a senior care (including now)? No 01/10/2023 Sex and Gender Information Value Date Recorded Sex Assigned at Not on file Gender Identity Not on file Sexual Orientation Not on file documented as of this encounter Last Filed Vital Signs Vital Sign Reading Time Taken Comments Blood Pressure 120/75 01/10/2023 11:21 AM CDT Pulse 74 01/10/2023 11:21 AM CDT Temperature 36.6 ??C (97.9 ??F) 01/10/2023 11:05 AM C DT Respiratory Rate 13 01/10/2023 11:21 AM CDT Oxygen Saturation 98% 01/10/2023 11:21 AM CDT Inhaled Oxygen Concentration - - Weight [...] this encounter Discharge Summaries * Lety Scott, AMANDA-ASHOK - 01/11/2023 2:27 PM CDT Neurosurgery Discharge Summary Attending Physician:Jazz Martin MD (must cosign d/c summary) Patient Name:Consuelo Darby Date of : 1980 Admit date: 01/10/2023 Discharge date:01/11/2023 Admitting Physician: Jazz Martin MD Admission Diagnosis: Right sided cranioplasty for skull defect >??5 cm with shungnak bone flap replacement and??titanium??plates/screws??(Synthes MaxilloFacial) Discharge Diagnosis:Right sided cranioplasty for skull defect >??5 cm with shungnak bone flap replacement and??titanium??plates/screws??(Synthes MaxilloFacial) Past Medical/Surgical [...] Right 01/10/2023 Right; right cranioplasty, replacement of shungnak bone ??? Embolectomy Right 10/30/2022 Right; RIGHT ILEO femoral thrombectomy VIA CUTDOWN. REPAIR OF FEMORAL ARTERY WITH PATCH. ANGIOGRAM ??? ENDOSCOPY, UPPER N/A 2022 N/A; ESOPHAGOGASTRODUODENOSCOPY (EGD) DIAGNOSTIC with PEG Placement ??? ENDOSCOPY, UPPER N/A 11/10/2022 N/A; EGD, POSS. EX-LAP LEVEL 3 @ 1500 Hospital Course: 42 yo woman admitted for Right sided cranioplasty for skull defect >??5 cm with shungnak bone flapreplacement and??titanium??plates/screws??(Synthes MaxilloFacial). Tolerated the procedure [...] 2200 -- 102 14 122/74 92 % 01/10/232120 -- (!) 110 -- 121/69 -- 01/10/23 [...] 1.0 % Immature Granulocytes Absolute 0.03 PTT [facility] Result Value Ref Range APTT 22.2 (L) [...] hospital course Consults None IP CONSULT TO BELT TURNER Condition at discharge: good Disposition: Home Patient [...] HYDROcodone-acetaminophen 5-325 MG tablet Commonly known as: Lyndon Discharge Procedure Orders Why you were hospitalized Order Specific Question Answer Comments Your discharge diagnosis is: Acquired skull defect [5272434] No special diet needed Resume your normal [...] your provider Call Dr. Yann Pena at [phone] if you have questions or concerns, or [...] if you are unsure about any medications. Fcml-ayw-rfubwnx medication Take over the counter stool softener for relief of constipation Follow up with provider Additional Scheduling Instructions: Readmission Risk Score: 23. 0-20 = Low/Moderate Risk - Follow up within 14 days 21-100 = High Risk - Follow up within 5 days Order Specific Question Answer Comments Follow Up Instructions for Patient: Other (See Comment) Please call [phone] to make a follow up appointment in clinic with Dr martin or [facility] [employer] in two weeks for wound check CC: Jaden Thakur DO FIC OPERATIONS ENGINEER documented in this encounter Medications at Time [...] Heath - 01/11/2023 4:27 PM CDT Discharge Sifter Operator received request from AMANDA Scott to arrange follow-up appointment for Patient with Neurosurgery. This telegraphic typewriter installer called [phone] and spoke with Lex[employer]. Sifter Operator was able toobtain follow-up appointment for Patient with AMANDA Blake on 01-25-2023 at 1:30PM. No further follow-up needs from electrotype molder indicated at this time. Zenia Heath, Discharge Sifter Operator 01/19/2023 FIC OPERATIONS ENGINEER * Jhony Bah, PharmD - 01/11/2023 4:25 [...] the outpatient pharmacy at [phone]. Jhony Bah, Special Education Science Teacher [facility] at [place] [id number] [facility], First Floor [place], [place] [address] Hours of Operation Sunday - Sunday: 8:00am to 6:00pm Sunday: 9:00am to 1:00pm Epic: [facility] *Ensure the patient and clinic's nearby ZIP codes box is unchecked* * Sandra Fernandez, PT - 01/11/2023 3:45 PM CDT [facility] Physical Medicine and Rehabilitation Physical Therapy Initial Evaluation Note Patient: Consuelo Darby Med Record Number: [id number] Date of : 1980 Age: [age] year [...] she has been working on recently at the [facility]. Balance: Balance Scales/Tests Used: Sitting: Static/Dynamic;Standing: Static/Dynamic [...] balance activities and monitoring of vitals Modified [place]: Current Modified [place] Score: 4 AM-PAC 6 Clicks Mobility Raw [...] transfer bed to/from chair with maximal assist Longterm Goal(s): Patient to be baseline with functional mobility and self-care and should discharge to prior level of care. Pt would benefit from returning to the [facility] program at she was previously receiving PT [...] Cartwright OT - 01/11/2023 9:59 AM CDT [facility] Physical Medicine and Rehabilitation Occupational Therapy Initial Evaluation Note Patient: Consuelo Darby Med Record Number: [id number] Date of : 1980 Age: [age] year [...] GOALS: Patient's Primary Concern: Continue therapy at [facility] Home Situation: Type of Residence: [...] home; has been using rock- aid at [facility], recently fitted for LLE AFO. Attends [facility] 5 days/week for 5 hrs/day. [...] at baseline; patient has been attending [facility] to progress with mobility. Balance: Balance Scales/Tests Used: Sitting: Static/Dynamic;Standing: Static/Dynamic Sitting - Static: Fair +;With One Upper Extremity Support Sitting - Dynamic: Fair;With One Upper Extremity Support Standing - Static: Fair - Standing - Dynamic: Poor + Activities of Daily Living Feeding: Stand By Assist (using RUE) Upper Body Dressing: Moderate Assistance (adjust gown) ACTIVITY TOLERANCE: Patient's activity tolerance: fair plus. Modified [place]: Current Modified [place] Score: 4 AM-PAC 6 Clicks Daily Activity [...] with moderate assist and X 1 Manager Pest Goal(s): Patient to be baseline with functional [...] 91 % Max: 100 %] Input/Output: 01/10 0701 - 01/11 0700 In: 3291.4 [P.O.:900; I.V.:2391.4] Out: 3150 [Urine:3000] [...] craniectomy with interval cranioplasty. There is a fulrm-sq-pglzotvz amount of scattered pneumocephalus along the left [...] acquired skull defect now s/p right sided shungnak bone cranioplasty 01/[address] Martin. Plan: [...] MD 7:07 AM 01/11/23 * Laura Patel, CHEMICAL MAKER-[facility] - 01/10/2023 4:43 PM CDT NEUROSURGERY POST-OP NOTE : SUBJECTIVE Consuelo Darby is POD 0 s/p right cranioplasty, replacement of shungnak bone (Right: Head) Incisional pain / per [...] BMP: Recent Labs Component Name 12/21/22 1107 12/14/2258 12/11/22 0209 12/07/22 0915 SODIUM - 136 [...] distal incision. Imaging: CT tomorrow ASSESSMENT/PLAN: Consuelo Dayami Darby is POD 0 s/p right cranioplasty, replacement of shungnak bone (Right: Head) - Follow exam - Pain control - Advance diet as tolerated - Activity as tolerated - CT in AM Laura Patel, AMANDA-AQUATIC SCIENTIST 01/10/2023 4:43 PM documented in this encounter [...] ??? 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 Plans for right sided shungnak bone cranioplasty. Inform consent obtained. Jarvis Gagnon MD 10:18 AM documented in this encounter Nursing Notes * Zakiya Prabhakar RN - 01/10/2023 1:15 PM CDT 1g cefazolin delivered to sterile field; added to irrigation. documented in this encounter OR Notes * Brief Op Note - Jarvis Gagnon MD - 01/10/2023 12:56 PM CDT Brief Op Note Procedure: right cranioplasty, replacement of shungnak bone Patient Name: Consuelo Darby Date of [...] Implant Name Type Inv. Item Serial No. Buffet Waiter/Waitress Lot No. LRB No. Used Action Screw [...] for skull defect > 5 cm with shungnak bone flap replacement and titanium plates/screws (Synthes MaxilloFacial) SURGEON: Jazz Martin M.D. DEVULCANIZER HEAD: Jarvis Gagnon M.D. ANESTHESIA: General. POSITION: Supine [...] well and returns today for skull reconstructionwith shungnak bone flap. All risks and benefits were [...] irrigated with saline At this time, the shungnak bone flap was brought into the field to test its fit and we found good contour with the flap and proceeded with plating. The Clarity MaxFacial titanium plating system was utilized to allow for fixationof the flap. After the bone flap was plated on the back table, 2-0 silk sutures were placed into the dura and plan to insert through holes in the bone for central tack-ups. The wound was copiously irrigated and the shungnak bone implant was fitted onto the skull [...] Implant Name Type Inv. Item Serial No. Buffet Waiter/Waitress Lot No. LRB No. Used Action Screw 1.5Mm 4Mm Crnmxf Slfdrl Screw 1.5Mm 4Mm Crnmxf Slfdrl Clarity Maxillofacial Right 28 Implanted Cover Bur H[facility] [...] entireprocedure. Jazz Martin MD 01/15/2023 12:10 PM FIC OPERATIONS ENGINEER documented in this encounter Plan of Treatment [...] 3 :30 AM CDT Acquired skull defect MD REPAIR SKULL DEFECT,>5CM 01/10/2023 12:56 PM CDT Acquired skull defect Case Notes LATEX ALLERGY Special Needs SUPINE--Bone flap verified in freezer synthes plating system--Anne Marie notified mk 01/08 PTT [facility] STAT 01/10/2023 11:30 AM CDT PT-INR [facility] STAT 01/10/2023 11:30 AM CDT Pre-op evaluation [...] 10? 3 /uL 01/11/2023 5:21 AM CDT [facility] RBC 3.75(L) 3.80 - 5.20 10? 6 /uL 01/11/2023 5:21 AM [facility] Hemoglobin 10.8(L) 12.0 - 15.6 g/dL 01/11/2023 5:21 AM [facility] Hematocrit 34.2(L) 35.0 - 45.0 % 01/11/2023 5:21 AM [facility] MCV 91.2 80.7 - 98.3 fL 01/11/2023 5:21 AM [facility] MCH 28.8 26.7 - 34.0 pg 01/11/2023 5:21 AM [facility] MCHC 31.6 30.8 - 35.9 g/dL 01/11/2023 5:21 AM [facility] RDW-SD 52.9(H) 36.0 - 50.0 fL 01/11/2023 5:21 AM [facility] RDW-CV 15.8(H) 11.2 - 14.8 % 01/11/2023 5:21 AM [facility] Platelet Count 298 150 - 400 10? 3 /uL 01/11/2023 5:21 AM [facility] MPV 10.0 9.4 - 12.9 fL 01/11/2023 5:21 AM [facility] nRBC Absolute 0.00 0 10? 3 /uL 01/11/2023 5:21 AM [facility] nRBC Auto 0.0 0 /100 WBC 01/11/2023 5:21 AM [facility] Neutrophils % 81.5(H) 35.0 - 70.0 % 01/11/2023 5:21 AM [facility] Lymphocytes % 10.7(L) 20.0 - 43.0 % 01/11/2023 5:21 AM [facility] Monocytes % 7.2 5.0 - 13.0 % 01/11/2023 5:21 AM [facility] Eosinophils % 0.0 0.0 - 6.0 % 01/11/2023 5:21 AM [facility] Basophil % 0.3 0.0 - 2.0 % 01/11/2023 5:21 AM [facility] Neutrophils Absolute 8.17(H) 1.60 - 7.00 10? 3 /uL 01/11/2023 5:21 AM [facility] Lymphocyte Absolute 1.07(L) 1.10 - 3.90 10? 3 /uL 01/11/2023 5:21 AM [facility] Monocytes Absolute 0.72 0.26 - 1.07 10? 3 /uL 01/11/2023 5:21 AM [facility] Eosinophils Absolute 0.00 0.00 - 0.47 10? 3 /uL 01/11/2023 5:21 AM [facility] Basophils Absolute 0.03 0.00 - 0.08 10? 3 /uL 01/11/2023 5:21 AM [facility] Immature Granulocytes % 0.3 0.0 - 1.0 % 01/11/2023 5:21 AM [facility] Immature Granulocytes Absolute 0.03 01/11/2023 5:21 AM [facility] Blood BLOOD SPECIMEN / Unknown Venipuncture / Unknown 01/11/2023 4:26 AM CDT 01/11/2023 4:35 AM CDT Jazz Martin MD LAB - HEMATOLOGY ORD ERABLES [facility] [address] [place] [address], [facility] [phone] * (ABNORMAL) BASIC METABOLIC PANEL (CALCIUM TOTAL) (01/11/2023 4:26 AM CDT) BUN 10 7 - 26 mg/dL 01/11/2023 5:00 AM [facility] Creatinine 0.46(L) 0.56 - 0.96 mg/dL 01/11/2023 5:00 AM [facility] Sodium 139 136 - 145 mmol/L 01/11/2023 5:00 AM [facility] Potassium 4.1 3.5 - 4.5 mmol/L 01/11/2023 5:00 AM [facility] Chloride 107 98 - 107 mmol/L 01/11/2023 5:00 AM [facility] CO2 24 22 - 29 mmol/L 01/11/2023 5:00 AM CDT [facility] Glucose 133(H) 70 - 115 mg/dL 01/11/2023 5:00 AM T [facility] Calcium 8.8 8.4 - 10.2 mg/dL 01/11/2023 5:00 AM [facility] Anion Gap 8 6 - 16 01/11/2023 5:00 AM T [facility] BUN/Creatinine Ratio 22 7 - 23 01/11/2023 5:00 AM T [facility] Osmolality Calculated 289 275 - 295 mOsm/kg 01/11/2023 5:00 AM [facility] eGFR by CKD-EPI >90 >=90 mL/min/1.7 3 m2 01/11/2023 5:00 AM [facility] Blood BLOOD SPECIMEN / Unknown Venipuncture / Unknown 01/11/2023 4:26 AM CDT 01/11/2023 4:35 AM CDT Jazz Martin MD LAB - CHEMISTRY BIBIANA BLACKMAN [facility] Organization Address City/State/ZIP Co de Phone Number [facility] [address] [place] [address], [facility] [phone] * CT HEAD NON CONTRAST (01/11/2023 3:30 AM CDT) Anatomical Region Laterality Modality Head Computed Tomogra phy 01/11/2023 12:5 2 PM CDT Impressions 01/11/2023 12:56 PM CDT IMPRESSION: 1. Postsurgical changes of interval right cranioplasty with placement of the shungnak bone flap. A 1 cm extracranial/subgaleal fluid collection may represent surgical seroma versus a pseudomeningocele cell. 2. Further evolution of a chronic right MCA infarct. > Interpreting Provider: Lonnie Rae MD on 01/11/2023 12:56 PM Narrative 01/11/2023 12:56 PM CDT PROCEDURE: ??CT HEAD WO CONTRAST, DATE/TIME OF EXAM: ??01/11/2023 3:31 AM, LOCATION ??[facility] INDICATION: M95.2: Acquired skull defect ADDITIONAL CLINICAL INFORMATION: Ordering Provider Reason For Exam: ??s/p cranioplasty Technologist Note: Additional: EXAMINATION: Computed tomography (CT) of the head without contrast TECHNIQUE: CT of the head was performed without contrast according to standard protocol. COMPARISON: 12/21/2022. FINDINGS: There has been interval right cranioplasty with replacement of the shungnak bone flap. Some pneumocephalus and a small [...] DATE/TIME OF EXAM: 01/11/2023 3:31 AM, LOCATION [facility] INDICATION: M95.2: Acquired skull defect ADDITIONAL CLINICAL [...] interval right cranioplasty with placement of the shungnak bone flap. A 1 cm extracranial/subgaleal fluid collection may represent surgical seroma versus a pseudomeningocele cell. 2. Further evolution of a chronic right MCA infarct. > Interpreting Provider: Lonnie Rae MD on 01/11/2023 12:56 PM Jazz Martin MD CT ORDERABLES * (ABNORMAL) PTT [facility] (01/10/2023 11:30 AM CDT) APTT 22.2(L) 23.0 - 38.4 Seconds 01/10/2023 12:20 PM T [facility] Comment:Suggested therapeuti c range for full dose I.V. unfractionated heparin therapy for venous thromboembolism is 71 to 109 seconds. Blood BLOOD SPECIMEN / Unknown Venipuncture / Unknown 01/10/2023 11:30 AM CDT 01/10/2023 11:56 AM CDT Jazz Martin MD LAB - COAGULATION OR DERABLES Performing Organization Address City/State/[facility] Co de Phone Number [facility] [address] [place] [address], [facility] [phone] * (ABNORMAL) CBC W AUTO DIFFERENTIAL (01/10/2023 11:30 AM CDT) [facility] WBC 9.0 3.5 - 10.5 10? 3 /uL 01/10/2023 12:07 PM [facility] RBC 4.99 3.80 - 5.20 10? 6 /uL 01/10/2023 12:07 PM [facility] Hemoglobin 14.7 12.0 - 15.6 g/dL 01/10/2023 12:07 PM [facility] Hematocrit 45.6(H) 35.0 - 45.0 % 01/10/2023 12:07 PM [facility] MCV 91.4 80.7 - 98.3 fL 01/10/2023 12:07 PM [facility] MCH 29.5 26.7 - 34.0 pg 01/10/2023 12:07 PM [facility] MCHC 32.2 30.8 - 35.9 g/dL 01/10/2023 12:07 PM [facility] RDW-SD 52.7(H) 36.0 - 50.0 fL 01/10/2023 12:07 PM [facility] RDW-CV 15.8(H) 11.2 - 14.8 % 01/10/2023 12:07 PM [facility] Platelet Count 320 150 - 400 10? 3 /uL 01/10/2023 12:07 PM [facility] MPV 10.1 9.4 - 12.9 fL 01/10/2023 12:07 PM [facility] nRBC Absolute 0.00 0 10? 3 /uL 01/10/2023 12:07 PM [facility] nRBC Auto 0.0 0 /100 WBC 01/10/2023 12:07 PM [facility] Neutrophils % 70.2(H) 35.0 - 70.0 % 01/10/2023 12:07 PM [facility] Lymphocytes % 21.9 20.0 - 43.0 % 01/10/2023 12:07 PM [facility] Monocytes % 6.6 5.0 - 13.0 % 01/10/2023 12:07 PM [facility] Eosinophils % 0.6 0.0 - 6.0 % 01/10/2023 12:07 PM [facility] Basophil % 0.4 0.0 - 2.0 % 01/10/2023 12:07 PM [facility] Neutrophils Absolute 6.33 1.60 - 7.00 10? 3 /uL 01/10/2023 12:07 PM [facility] Lymphocyte Absolute 1.98 1.10 - 3.90 10? 3 /uL 01/10/2023 12:07 PM [facility] Monocytes Absolute 0.60 0.26 - 1.07 10? 3 /uL 01/10/2023 12:07 PM [facility] Eosinophils Absolute 0.05 0.00 - 0.47 10? 3 /uL 01/10/2023 12:07 PM [facility] Basophils Absolute 0.04 0.00 - 0.08 10? 3 /uL 01/10/2023 12:07 PM [facility] Immature Granulocytes % 0.3 0.0 - 1.0 % 01/10/2023 12:07 PM CDT [facility] Immature Granulocytes Absolute 0.03 01/10/2023 12:07 PM CDT [facility] Blood BLOOD SPECIMEN / Unknown Venipuncture / Unknown 01/10/2023 11:30 AM CDT 01/10/2023 11:59 AM CDT Ambrocio Leal II, MD LAB - HEMATOLOGY OR DERABLES [facility] [address] [place] [address], [facility] [phone] * TYPE + SCREEN PANEL (01/10/2023 11:30 AM CDT) Antibody Screen NEG 12:47 PM CDT [facility] ABO Rh B POS 01/10/2023 12:47 PM CDT [facility] Blood Bank BLOOD SPECIMEN / Unknown Venipuncture / Unknown 01/10/2023 11:30 AM CDT 01/10/2023 11:46 AM CDT Galina Torres CHEMICAL MAKER-AQUATIC SCIENTIST LAB - BLOOD B ANK ORDERABLES Performing Organization Address [facility]/ZIP Co de Phone Number [facility] [address] [place] [address], [facility] [phone] * (ABNORMAL) PT-INR [facility] (01/10/2023 11:30 AM CDT) PT 11.9(L) 12.1 - 14.8 Seconds 01/10/2023 12:20 PM CDT [facility] INR 0.9 See Comment 01/10/2023 12:20 PM CDT [facility] Comment:The suggested therap eutic range for standard coumadin (warfarin) therapy is an INR of 2.0-3.0. For high-risk patients (Mechanical Mitral Valve Prosthesis, etc.), the suggested prophylactic therapeutic range is an INR of 2.5-3.5. Blood BLOOD SPECIMEN / Unknown Venipuncture / Unknown 01/10/2023 11:30 AM CDT 01/10/2023 11:56 AM CDT Galina Torres CHEMICAL MAKER-AQUATIC SCIENTIST LAB - COAGULA TION ORDERABLES Performing Organization Address City/[facility]/ZIP Co de Phone Number [address] [address], [place] [phone] * HCG URINE QUALITATIVE - POCT (IP) INTERFACED (01/10/2023 10:30 AM CDT) HCG Qual Urine Negative Negative 01/10/2023 10:36 AM CDT [facility] Urine URINE / Unknown 01/10/2023 1 0:30 AM CDT 01/10/2023 10:36 AM CDT Jazz Martin MD LAB - POINT OF CARE ORDERABLES Performing Organization Address City/[facility]/ZIP Co de Phone Number [address] [address], [place] [phone] * HCG URINE QUAL POCT NOTIFICATION (01/10/2023 10:09 AM CDT) Comment Notification Label Only - See Separate Report 01/10/2023 11:30 AM CDT [facility] Urine URINE / Unknown 01/10/2023 1 0:09 AM CDT 01/10/2023 10:10 AM CDT Galina Torres CHEMICAL MAKER-AQUATIC SCIENTIST LAB - URINALY SIS ORDERABLES Performing Organization Address City/[facility]/ZIP Co de Phone Number [address] [address], [place] [phone] documented in this encounter Visit Diagnoses Diagnosis [...] reflux Gaze palsy Palsy of conjugate gaze Acquired skull defect Other specified acquired deformity of head documented in this encounter Admitting Diagnoses Diagnosis Acquired skull defect Other specified acquired deformity of head documented in this encounter Administered Medications Inactive Administered Medications - up to 3 most recent administrations Medication Order MAR Action Action Date Dose Rate Site 0.9% NaCl injection 1-10 mL 1-10 mL, [...] Pain, Starting on Sun01/10/23 at 1442, Until Sun01/11/23 at 1727, Patient preference for lesser PRN pain meds may be honored when the patient requests a less strong medication, a lower dose, or a less intrusive route of administration when the lesser drug, dose and route have been ordered for the patient. This patient request must be documented in the MAR. bacitracin topical ointment PRN, Starting on Sun01/10/23 at 1401, Until Sun01/10/23 at 1445, Intra-op $ Given 01/10/2023 2:01 PM CDT 1 packet Operative Site baclofen (Lioresal) tablet 5 mg 5 mg, Oral, AT BEDTIME, First dose on Sun01/10/23 at 2100, Until Discontinued $ Given 01/10/2023 9:22 PM CDT 5 mg bethanechol (Urecholine) tablet 25 mg 25 mg, Oral, 3 TIMES DAILY, First dose on Sun01/10/23 at 2100, Until Discontinued $ Given 01/11/2023 2:41 PM CDT 25 mg $ Given 01/11/2023 8:01 AM CDT 25 mg $ Given 01/10/2023 9:45 PM CDT 25 mg bisacodyl (Dulcolax) suppository 10 mg 10 mg, Rectal, ONCE PRN, Constipation, no BM 4 hours MOM/Magnesium hydroxide, 1 dose, Starting on Sun01/10/23 at 1443, Until Sun01/11/23 at 1727 cyclobenzaprine (Flexeril) tablet 5 mg 5 mg, [...] 150, Starting on Sun01/10/23 at 1442, Until Sun01/11/23 at 1727, For SBP greater than 150 if HR less than 70. labetalol (Normodyne; Trandate) injection 10 mg 10 mg, Intravenous, EVERY 15 MIN PRN, Hypertension, SBP greater than 150 mmHg, sbp > 150, Starting on Sun01/10/23 at 1442, Until Sun01/11/23 at 1727, For SBP greater than 150 if HR greater than or equal to 70. levETIRAcetam (Keppra) injection 500 mg 500 mg, Intravenous, EVERY 12 HOURS, First dose on Sun01/10/23 at 2300, Until Discontinued, Administer straight drug (undiluted) over two minutes $ Given 01/11/2023 7:56 AM CDT 500 mg $ Given 01/10/2023 10:50 PM CDT 500 mg lidocaine 1% (Xylocaine) - EPINEPHrine 1:100,000 injection PRN, Starting on Sun01/10/23 at 1254, Until Sun01/10/23 at 1445, Intra-op $ Given 01/10/2023 12:54 PM CDT 10 mL Operative Site LORazepam (Ativan) injection 2 mg 2 mg, [...] $ Given 01/11/2023 7:58 AM CDT 25 mg $ Given 01/10/2023 9:21 PM CDT 25 mg morphine injection 2 mg 2 mg, Intravenous, EVERY 3 HOURS PRN, Severe Pain, Starting on Sun01/10/23 at 1657, Until Sun01/11/23 at 1727, If oral route is unavailable. [...] Given 01/11/2023 6:57 AM CDT 5 mg pantoprazole EC (Protonix) tablet 40 mg 40 [...] shown in CDT. Scheduled Medication Order 01/09/2023 01/10/202301/1101/11/2023 0.9% NaCl injection 3 mL(Linked Group 1) 3 mL, Intracatheter, EVERY 8 HOURS, First dose on Sun01/10/23 at 1515, Until Discontinued, Flush peripheral IV catheter with 3 mL of normal saline every 8 hours. 160 ($ Given - Provider: Dixie Fuentes RN)2122 ($ Given - Provider: Krupa Ortiz RN) [...] ($ Given - Provider: Krupa Ortiz RN) 08 ($ Given - Provider: Umu Cristina RN)144 ($ Given - Provider: Umu Cristina RN) chlorhexidine (Peridex) 0.12 % oral solution 15 mL (CANCELED) 15 mL, Mouth/Throat, 2 TIMES DAILY, First dose on Sun01/10/23 at 1445, Until Discontinued, Swab oral cavity. . WASTE DISPOSAL INSTRUCTIONS: Black Bin Disposal required. 163 (Not Administered - Provider: Dixie Fuentes RN - Reason: Refused-Patient)2120 ($ Given - Provider: Krupa Ortiz RN) 075 (Not Administered - Provider: Umu Cristina RN - Reason: Patient Condition) cyclobenzaprine (Flexeril) tablet 5 mg 5 mg, Oral, AT BEDTIME, First dose on Sun01/10/23 at 2100, Until Discontinued 2121 ($ Given - Provider: Krupa Ortiz RN) gabapentin (Neurontin) capsule 300 mg 300 mg, Oral, 3 TIMES DAILY, First dose on Sun01/10/23 at 1515, Until Discontinued 1655 ($ Given - Provider: Dixie Fuentes RN)2122 ($ Given - Provider: Krupa Ortiz RN) 0758 ($ Given - Provider: Umu Cristina RN)1441 ($ Given - Provider: Umu Cristina RN) levETIRAcetam (Keppra) injection 500 mg 500 mg, Intravenous, EVERY 12 HOURS, First dose on Sun01/10/23 at 2300, Until Discontinued, Administer straight drug (undiluted) over two minutes 2250 ($ Given - Provider: Krupa Ortiz RN) 0756 ($ Given - Provider: Umu Cristina RN) metoprolol tartrate IR (Lopressor) tablet 25 mg 25 mg, Oral, 2 TIMES DAILY, First dose on Sun01/10/23 at 2100, Until Discontinued 2120 ($ Given - Provider: Krupa Ortiz RN) 0758 ($ Given - Provider: Umu Cristina RN) multiple vitamins with minerals tablet 1 tablet 1 tablet, Oral, DAILY, First dose on Sun01/10/23 at 1515, Until Discontinued, . WASTE DISPOSAL INSTRUCTIONS: Black Bin Disposal required. 165 ($ Given - Provider: Dixie Fuentes RN) 0758 ($ Given - Provider: Umu Cristina RN) pantoprazole EC (Protonix) tablet 40 mg 40 [...] loose stool or greater than 3 BM/day 1648 (Not Administered - Provider: Dixie Fuentes RN [...] ($ Given - Provider: Umu Cristina, AMBROSE) verapamil CR (Isoptin-SR) tablet 120 mg 120 mg, Oral, AT BEDTIME, First dose on Sun01/10/23 at 2100, Until Discontinued, Do not crush or chew. 212 ($ Given - Provider: Krupa Ortiz, AMBROSE) vitamin D3 (Cholecalciferol) 25 MCG (1000 UNITS) [...] Fuentes RN) 0000 (Current Rate - Provider: Kruap Ortiz RN)0200 (Current Rate - Provider: Krupa [...] RN)1157 (Rate Change - Provider: Lurdes Malave APRN-CORY)1347 (Anesthesia Volume Adjustment - Provider: AMOR Lucas) PRN Medication Order 01/09/2023 01/10/2023 01/11/2023 0.9% [...] MAR. 1701 ($ Given - Provider: Dixie Fuentes, AMBROSE)2242 ($ Given - Provider: Krupa Ortiz, AMBROSE) 0420 ($ Given - Provider: Krupa Ortiz, RN)0754 ($ Given - Provider: Umu Cristina [...] a repeat dose for severe pain? No 2121 ($ Given - Provider: Krupa Ortiz [...] request must be documented in the MAR. 1601 ($ Given - Provider: Dixie Fuentes RN) [...] swallow. documented in this encounter Care Teams Mortgage Analyst Relationship Specialty Start Date End Date Jean Joy MD PCP - OBGYN 12/27/07 Jaden Thakur DO [address] [place] [id number] PCP - Attributed-[facility] EHP STL 09/10/19 06/28/23 Jaden Thakur DO [address] [place] [id number] PCP - General Family Medicine Geriatric Medicine 01/05/23 Arlyn Hernandez RN Post Acute Program Support ClerkStone Processing Machine Operator 11/21/22 Doreen Aviles Care Coordination Specialist Care Management 11/30/22 01/18/23 documented as of this encounter
--- OUTSIDE RECORDS SUMMARY | 2024-03-19 20:34 | XMS_ITS | Encounter Summary ---
Author Organization [facility] Address [address] [address] Care Team Providers Care Forward Air Controller/Air Officer Name Role Phone Jean Joy MD Unavailable [phone] Jaden Thaukr DO Unavailable [phone] Jaden Thakur DO Primary Care Provider + Encounter Details Date Type Department Care Team (Latest Contact Info) Description 02/21/2023 Travel Social History Tobacco Use Types Packs/Day [...] Recorded Patient Health Questionnaire-2 Score 0 11/15/2022 [facility] [place] of Occupat ional Health - Occupational Stress [...] place to sleep or slept in a alf (including now)? No 01/10/2023 Sex and Gender [...] on filedocumented in this encounter Care Teams Forward Air Controller/Air Officer Relationship Specialty Start Date End Date Jean Joy MD PCP - OBGYN 12/27/07 Jaden Thakur DO [address] [place] [address] PCP - Attributed-[facility] EHP STL 09/10/19 06/28/23 Jaden Thakur DO [address] [place] [address] PCP - General Family Medicine Geriatric Medicine 01/05/23 documented as of this encounter
--- OUTSIDE RECORDS SUMMARY | 2024-03-19 20:34 | XMS_ITS | Encounter Summary ---
Author Organization [facility] Address [address] [facility] [place] [address] Care Team Providers Care Bottling Attendant Name Role Phone Jean Joy MD Unavailable [phone] Jaden Thakur DO Unavailable [phone] Jaden Thakur DO Primary Care Provider + Reason for Visit * Reason Onset Date Comments Appointment 02/07/2023 Encounter Details Date Type Department Care Team (Late st Contact Info) Description 02/07/2023 Telephone [facility] - Orthoped[facility] [address] [place] [address] Haleigh Howard Appointment Social History Tobacco Use Types Packs/Day Years [...] Recorded Patient Health Questionnaire-2 Score 0 11/15/2022 [facility] of Occupat ional Health - Occupational Stress [...] encounter Miscellaneous Notes * Telephone Encounter - Haleigh Howard - 02/07/2023 1:04 PM CST After receiving a message from Ngoc Chandler PA-C about scheduling this patient with her in Orthopedic Surgery sooner that April 2023 I called the patient to clarify her appointments. I clarified that the patient has an appointment on February at 2:00 pm in Orthopedic Surgery and that the appointment in April is in Neurosurgery. I offered the patient an appointment on Sunday February 12, 2023 at 12:45 and she declined. This information was relayed back to Ngoc Chandler PA-C. [employer] documented in this encounter Plan of Treatment Not on file documented as of this encounter Visit Diagnoses Not on filedocumented in this encounter Care Teams Bottling Attendant Relationship Specialty Start Date End Date Jean Joy MD PCP - OBGYN 12/27/07 Jaden Thakur DO [address] [place] [address] PCP - Attributed-[facility] EHP STL 09/10/19 06/28/23 Jaden Thakur DO [address] [place] [address] PCP - General Family Medicine Geriatric Medicine 01/05/23 documented as of this encounter
--- OUTSIDE RECORDS SUMMARY | 2024-03-19 20:34 | XMS_ITS | Encounter Summary ---
Author Organization [facility] Address [address] [facility] [place] [address] Care Team Providers Care Necktie Centralizing Machine Operator Name Role Phone Jean Joy MD Unavailable [phone] Jaden Thakur DO Unavailable [phone] Arlyn Hernandez RN Unavailable Doreen Aviles Unavailable Jaden Thakur DO Primary Care Provider + Reason for Referral * Cardiac (Routine) - Closed Specialty Diagnoses / Procedures Referred By Contac t Referred To Contact Cardiology Diagnoses Vegetation of heart valve (HCC) Procedures ECHO SARAH TN ECHO TRANSESOPHAGEAL, INTERP/REP TN DOPPLER ECHO HEART,COMPLETE TN DOPPLER COLOR FLOW VELOCITY MAP Tr Michael MD [id number] [place] [address] Referral ID Status Reason Start Date Expiration Date Visits Re quested Visits Authorized [id number] Closed 12/26/2022 12/26/2023 1 1 Reason for Visit * Auth/Cert (Routine) Specialty Diagnoses / Procedures Referred By Contac t Referred To Contact Diagnoses Vegetation of heart valve (HCC) Procedures ECHO SARAH Referral ID Status Reason Start Date Expiration Date Visits Re quested Visits Authorized [id number] 1 1 Encounter Details Date Type Department Care Team (Latest Contact Info) Description 01/05/2023 11:59 AM CDT - 01/05/2023 3:52 PM CDT Hospital Encounter [facility] [address] [place] [address] Tr Michael MD [address] [facility], [address] [place] [address] Shruti Barrera RN [address] [place], [place] [address] Cardiac Catheterization Discharge Disposition: Home or Self Care Social [...] Recorded Patient Health Questionnaire-2 Score 0 11/15/2022 [facility] [place] of Occupat ional Health - Occupational Stress [...] in a skilled nursing (including now)? No 10/19/2022 Sex and Gender Information Value Date Recorded Sex Assigned at Not on file Gender Identity Not on file Sexual Orientation Not on file documented as of this encounter Last Filed Vital Signs Vital Sign Reading Time Taken Comments Blood Pressure 126/83 01/05/2023 3:35 PM CDT Pulse 82 01/05/2023 3:35 PM CDT Temperature 36.6 ??C (97.9 ??F) 01/05/2023 3:35 PM CD T Respiratory Rate 16 01/05/2023 3:35 PM CDT Oxygen Saturation 100% 01/05/2023 3:35 PM CDT Inhaled Oxygen Concentration - - Weight 99.8 kg (220 lb) 01/05/2023 1:19 PM CDT Height 162.6 cm (5' 4 ) 01/05/2023 1:19 PM CDT Body Mass Index 37.76 01/05/2023 1:19 PM CDT documented in this encounter Functional Status [...] No 01/05/2023 documented as of this encounter Discharge Instructions * Discharge Instructions* Richi Anderson MD - 01/05/2023 3:26 PM CDT Your valve looks normal. We do not see a reason for you to take Lovenox. documented in this encounter Medications at Time [...] capsule by mouth 3 times daily 12/14/2022 HYDROcodone-acetamino phen ([place]) 5-325 MG tablet TAKE 1 TABLET BY MOUTH EVERY 6 HOURS NEEDED FOR PAIN OR ACUTE PAIN 12/22/2022 01/11/2023 levETIRAcetam (Keppra) 500 MG tablet Take 1 [...] capsule by mouth once daily 12/14/2022 04/05/2023 warfarin (Coumadin) 1 MG tablet Take 3.5 (three and one-half) tablets by mouth once daily 12/14/2022 01/09/2023 warfarin (Coumadin) 5 MG tabletIndications:Emb olism Take 1 (one) tablet by mouth once daily Please prescribe warfarin based on pharmacy orders and bridge with enoxaparin; INR goal 2-3 Reasons: Blood Vessel Obstruction by Foreign Substance or Clot 11/17/2022 01/09/2023 documented as of this encounter H&P Notes * Richi Anderson MD - 01/05/2023 1:00 PM CDT Transesophageal Echocardiogram (SARAH) Pre-Procedure Note HISTORY: Consuelo Darby is a 42 year old woman with: 1. BMI 37 2. 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 S/p meropenem and doxycycline 3. R M1 stroke secondary to 2 A. S/p tenecteplase and mechanical thrombectomy 10/19/22 B. Cerebral edema and midline shift s/p hemicraniectomy 10/20/22 4. R common femoral thrombosis attributed to IR thrombectomy access site complication A. S/p iliofemoroal thrombectomy and repair 10/30/22 5. Migraine without aura She returns for SARAH to assess her aortic valve mass. PAST MEDICAL HISTORY: She has a past medical history of Abdominal pain, right upper quadrant, Anemia, CVA (cerebral vascular accident) (CMS/HCC), Essential hypertension, GERD (gastroesophageal refluxdisease), and History of hypertension. PAST SURGICAL HISTORY: Her has a past surgical history that includes section; colonoscopy;cholecystectomy, laparoscopic (02/22/2012); cholecystectomy; section (03/01/2016); colonoscopy (N/A, 08/25/2021); colonoscopy with polypectomy (N/A, 08/25/2021); craniectomy (Right, 10/20/2022); embolectomy (Right, 10/30/2022); endoscopy, upper (N/A, 2022); and endoscopy, upper (N/A, 11/10/2022). FAMILY HISTORY: Her family history includes Cancer in her maternal grandfather; Diabetes in her maternal grandfather and maternal grandmother; Hypertension in her mother; Thyroid Disease in her mother. She She indicated that the status of her mother is unknown. She indicated that the status of her maternal grandmother is unknown. She indicated that the status of her maternal grandfather is unknown . SOCIAL HISTORY: She reports that she quit smoking about 8 years ago. Her smoking use included cigarettes. She smoked an average of .5 packs per day. She has never used smokeless tobacco. She reports that she does not drink alcohol and does not use drugs. ALLERGIES: Allergies Allergen Reactions ??? 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 Fever HOME MEDICATIONS: No current facility-administered medications on file prior to encounter. ??? baclofen (Lioresal) 5 MG TABS ??? bethanechol (Urecholine) 25 MG tablet ??? Cetirizine HCl (ZYRTEC PO) ??? Cholecalciferol 25 MCG (1000 UT) ??? cyclobenzaprine (Flexeril) 5 MG tablet ??? Enoxaparin Sodium (LOVENOX IJ) ??? gabapentin (Neurontin) 300 MG capsule ??? HYDROcodone-acetaminophen ([place]) 5-325 MG tablet ??? hydrOXYzine HCl (Atarax) 25 MG tablet ??? metoprolol tartrate IR (Lopressor) 25 MG tablet ??? pantoprazole EC (Protonix) 40 MG tablet ??? polyethylene glycol 3350 (Miralax) 17 g packet ??? tamsulosin (Flomax) 0.4 MG capsule ??? verapamil SR 24hr (Verelan) 120 MG capsule ??? warfarin (Coumadin) 1 MG tablet ??? warfarin (Coumadin) 5 MG tablet CURRENT MEDICATIONS: No current facility-administered medications for this encounter. REVIEW OF SYSTEMS: A complete 12-point review of systems was performed and negative except as detailed in HPI PHYSICAL EXAM: General: Middle aged woman in wheelchair, resting comfortably, R hemicranium protuberant Eyes: Pupils 3 mm bilaterally ENTM: Oropharynx clear, tongue and uvula midline Neck: Supple, full range of motion Lungs: Clear to auscultation bilaterally Heart: Rhythm regular, S1 normal, S2 physiologically split, no murmurs or gallops Abdomen: Soft, non-tender, non-distended, normal bowel sounds Extremities: No cyanosis, clubbing, or edema Skin: Warm, dry, well perfused Psych: Euthymic with congruent affect Neuro: Alert and oriented to person, place, time, and purpose, L hemiplegia ASSESSMENT & PLAN: Plan: - Proceed with SARAH Cardiology High Risk Variables Obesity - Morbid (severe) obesity due to excess calories Were these present on admission? Yes documented in this encounter OR Notes * Brief Op Note - Richi Anderson MD - 01/05/2023 1:00 PM CDT [facility] BRIEF POST PROCEDURE AND SEDATION NOTE Consuelo Darby is a 42 year old female born on 1980 Pre-op Diagnosis: Aortic valve mass Post-op Diagnosis: Essentially normal aortic valve Attending: Dr. Toth Sec Reporting Consultant(s): Richi Anderson MD Type of anesthesia: Moderate Administered fentanyl 175 mcg IV and midazolam 7 mg IV for sedation. Administered 1% lidocaine orally. Sedation start: 1407 Sedation stop: 1433 Monitoring: Monitoring consisted of: heart rate, fruit sprayer, continuous pulse oximetry, continuous capnography, frequent blood pressure checks, level of consciousness, IV access, constant attendance by RN until patient recovered and constant attendance until patient stable. Response: Vital signs stable, airway patent and O2 saturations greater than 92%. Patient status post procedure: Hemodynamically and neurologically stable. Complications: none documented in this encounter Plan of Treatment Not on file documented as of this encounter Procedures Procedure Name Priority Date/Time Associated Diagnosis Comments ECHO SARAH COMPLETE Routine 01/05/2023 2:3 3 PM CDT Vegetation of heart valve (HCC) HCG URINE QUALITATIVE - POCT (IP) INTERFACED Routine 01/05/2023 1:26 PM CDT HCG URINE QUAL POCT NOTIFICATION STAT 01/05/2023 1:00 PM CDT Pre-op testing documented in this encounter Results * ECHO SARAH COMPLETE (01/05/2023 2:33 PM CDT) BSA 2.12 m2 [facility] CV FUJ I [...] contrast. The probe was inserted by the projects manager. There was minimal probe insertion difficulty. Moderate sedation was administered. Sedation was managed by the projects manager. Lidocaine administered during the study. 7 mg of midazolam administered during the study. 175 mcg of fentanyl administered during the study. There were no complications during the procedure. Prior Study Prior SARAH study available for comparison. Prior study date: 10/23/2022. Changes noted compared to prior study. 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 Tr Michael MD ECHO CUPID * HCG URINE QUALITATIVE - POCT (IP) INTERFACED (01/05/2023 1:26 PM CDT) HCG Qual Urine Negative Negative 01/05/2023 1:32 PM CDT [facility] Urine URINE / Unknown 01/05/2023 1 :26 PM CDT 01/05/2023 1:32 PM CDT Tr Michael MD LAB - POINT OF CARE ORDERABLES Performing Organization Address City/[facility]/ZIP Co de Phone Number [address] [address], [place] [phone] * HCG URINE QUAL POCT NOTIFICATION (01/05/2023 1:00 PM CDT) Comment Notification Label Only - See Separate Report 01/05/2023 2:30 PM CDT [facility] Urine URINE / Unknown 01/05/2023 1 :00 PM CDT 01/05/2023 1:00 PM CDT Rafael Toth MD LAB - URINALYSIS ORD ERABLES Performing Organization Address City/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 documented in this encounter Administered Medications Inactive Administered Medications - up to 3 most recent administrations Medication Order MAR Action Action Date Dose Rate Site 0.9% NaCl infusion Intravenous, CONTINUOUS PRN, Hydration, Starting on Sun01/05/23 at 1404, Until Sun01/05/23 at 1653, Intra-procedure (CATH) $ New Bag/Syringe 01/05/2023 2:04 PM CDT 10 mL/hr 10 mL/hr benzocaine (Hurricane) spray PRN, Starting on Sun01/05/23 at 1403, Until Sun01/05/23 at 1653, Intra-procedure (CATH) $ Given 01/05/2023 2:06 PM CDT 0.5 mL $ Given 01/05/2023 2:03 PM CDT 0.5 mL fentaNYL (PF) (Sublimaze) injection Intravenous, PRN, Starting on Sun01/05/23 at 1408, Until Sun01/05/23 at 1653, Intra-procedure (CATH) $ Given 01/05/2023 2:26 PM CDT 25 mcg $ Given 01/05/2023 2:14 PM CDT 50 mcg $ Given 01/05/2023 2:10 PM CDT 50 mcg midazolam (Versed) injection Intravenous, PRN, Starting on Sun01/05/23 at 1408, Until Sun01/05/23 at 1653, Intra-procedure (CATH) $ Given 01/05/2023 2:26 PM CDT 1 mg $ Given 01/05/2023 2:14 PM CDT 2 mg $ Given 01/05/2023 2:10 PM CDT 2 mg documented in this encounter Active and Recently Administered Medications Times are shown in CDT. PRN Medication Order 01/03/2023 01/04/2023 01/05/2023 0.9% NaCl infusion Intravenous, CONTINUOUS PRN, Hydration, Starting on Sun01/05/23 at 1404, Until Sun01/05/23 at 1653, Intra-procedure (CATH) 1404 ($ New Bag/Syri nge - Provider: Jackelyn Verma, RN) benzocaine (Hurricane) spray PRN, Starting on Sun01/05/23 at 1403, Until Sun01/05/23 at 1653, Intra-procedure (CATH) 1403 ($ Given - Prov ider: Jackelyn Verma RN)1406 ($ Given - Provider: Jackelyn Verma, RN) fentaNYL (PF) (Sublimaze) injection Intravenous, PRN, Starting on Sun01/05/23 at 1408, Until Sun01/05/23 at 1653, Intra-procedure (CATH) 1407 ($ Given - Prov ider: Jackelyn Verma RN)1410 ($ Given - Provider: Jackelyn Verma RN)1414 ($ Given - Provider: Jackelyn Verma, RN)1426 ($ Given - Provider: Jackelyn Verma, RN) midazolam (Versed) injection Intravenous, PRN, Starting on Sun01/05/23 at 1408, Until Sun01/05/23 at 1653, Intra-procedure (CATH) 1407 ($ Given - Prov ider: Jackelyn Verma RN)1410 ($ Given - Provider: Jaceklyn Verma, RN)1414 ($ Given - Provider: Jackelyn Verma, RN)1426 ($ Given - Provider: Jackelyn Verma, RN) documented in this encounter Care Teams Necktie Centralizing Machine Operator Relationship Specialty Start Date End Date Jean Joy MD PCP - OBGYN 12/27/07 Jaden Thakur DO [address] [place] [address] PCP - Attributed-[employer] EHP STL 09/10/19 06/28/23 Jaden Thakur DO [address] [place] [address] PCP - General Family Medicine Geriatric Medicine 01/05/23 Arlyn Hernandez, AMBROSE Post Acute Consulting Senior Practice DirectorCuring Finisher 11/21/22 Doreen Aviles Care Coordination Specialist Care Management 11/30/22 01/18/23 documented as of this encounter
--- OUTSIDE RECORDS SUMMARY | 2024-03-19 20:34 | XMS_ITS | Encounter Summary ---
Author Organization [facility] Address [address] [facility] [place] [address] Care Team Providers Care High School Agriculture Teacher Name Role Phone Jean Joy MD Unavailable [phone] Jaden Thakur DO Unavailable [phone] Jaden Thakur DO Primary Care Provider + Encounter Details Date Type Department Care Team (Latest Contact Info) Description 01/24/2023 Travel Social History Tobacco Use Types Packs/Day [...] Recorded Patient Health Questionnaire-2 Score 0 11/15/2022 [facility] [place] of Occupat ional Health - Occupational Stress [...] place to sleep or slept in a snf (including now)? No 01/10/2023 Sex and Gender [...] on filedocumented in this encounter Care Teams High School Agriculture Teacher Relationship Specialty Start Date End Date Jean Joy MD PCP - OBGYN 12/27/07 Jaden Thakur DO [address] [place] [address] PCP - Attributed-[employer] EHP STL 09/10/19 06/28/23 Jaden Tahkur DO [address] [place] [address] PCP - General Family Medicine Geriatric Medicine 01/05/23 documented as of this encounter
--- OUTSIDE RECORDS SUMMARY | 2024-03-19 20:34 | XMS_ITS | Encounter Summary ---
Author Organization [facility] Address [address] [facility] [place] [address] Care Team Providers Care Air Intelligence Specialist Name Role Phone Jean Joy MD Unavailable [phone] Jaden Thakur DO Unavailable Jaden Thakur DO Primary Care Provider + Encounter Details Date Type Department Care Team (Latest Contact Info) Description 03/27/2023 Travel Social History Tobacco Use Types Packs/Day [...] Recorded Patient Health Questionnaire-2 Score 0 11/15/2022 [facility] [place] of Occupat ional Health - Occupational Stress [...] on filedocumented in this encounter Care Teams Air Intelligence Specialist Relationship Specialty Start Date End Date Jean Joy MD PCP - OBGYN 12/27/07 Jaden Thakur DO [address] [place] [address] PCP - Attributed-[employer] EHP STL 09/10/19 06/28/23 Jaden Thakur DO [address] [place] [address] PCP - General Family Medicine Geriatric Medicine 01/05/23 documented as of this encounter
--- OUTSIDE RECORDS SUMMARY | 2024-03-19 20:34 | XMS_ITS | Encounter Summary ---
Author Organization [facility] Address [address] [facility] [place] [address] Care Team Providers Care Decontaminator Name Role Phone Jean Joy MD Unavailable [phone] Jaden Thakur DO Unavailable [phone] Jaden Thakur DO Primary Care Provider + Reason for Visit * Reason Onset Date Comments MEDICATION REFILL 02/15/2023 Encounter Details Date Type Department Care Team (Late st Contact Info) Description 02/15/2023 Refill [facility] - Neurology [address] [facility], [place] [phone] Jim Walter MD [address] [place], [place] [id number] MEDICATION REFILL Social History Tobacco Use Types [...] Recorded Patient Health Questionnaire-2 Score 0 11/15/2022 [facility] of Occupat ional Health - [...] encounter Miscellaneous Notes * Telephone Encounter - Cindy Rowland RN - 02/15/2023 10:19 AM HALF SOLE FITTER Refill Request Consuelo Stock Pjlubna HENRI: hospital visit JAN due: to see PCP JAN scheduled: Visit date not found LRF: 02/03/23 Qty Disp: 60 # of refills: 0 Allergies: Allergies Allergen Reactions ??? 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 Fever Pended Medication Order: Requested Prescriptions Pending Prescriptions Disp Refills ??? levETIRAcetam (Keppra) 500 MG tablet 60 tablet 0 Sig: Take 1 (one) tablet by mouth 2 times daily SOLE FITTER documented in this encounter Plan of Treatment Not on file documented as of this encounter Visit Diagnoses Not on filedocumented in this encounter Care Teams Decontaminator Relationship Specialty Start Date End Date Jean Joy MD PCP - OBGYN 12/27/07 Jaden Thakur DO [address] [place] [address] PCP - Attributed-[facility] EHP STL 09/10/19 06/28/23 Jaden Thakur DO [facility] [place] [address] PCP - General Family Medicine Geriatric Medicine 01/05/23 documented as of this encounter
--- OUTSIDE RECORDS SUMMARY | 2024-03-19 20:34 | XMS_ITS | Encounter Summary ---
Author Organization [facility] Address [address] [facility] [place] [address] Care Team Providers Care Firer Powerhouse Name Role Phone Jean Joy MD Unavailable [phone] Jaden Thakur DO Unavailable [phone] Jaden Thakur DO Primary Care Provider + Encounter Details Date Type Department Care Team (Late st Contact Info) Description 05/16/2023 Orders Only [facility] - Orthopedics [address] [facility] [place] [address] Ngoc Chandler PA-C [address] [place] [address] Social History Tobacco Use Types Packs/Day Years [...] Recorded Patient Health Questionnaire-2 Score 0 11/15/2022 [facility] [place] of Occupat ional Health - Occupational Stress [...] on filedocumented in this encounter Care Teams Firer Powerhouse Relationship Specialty Start Date End Date Jean Joy MD PCP - OBGYN 12/27/07 Jaden Thakur DO [address] [place] [address] PCP - Attributed-[facility] EHP STL 09/10/19 06/28/23 Jaden Thakur DO [address] [place] [address] PCP - General Family Medicine Geriatric Medicine 01/05/23 documented as of this encounter
--- OUTSIDE RECORDS SUMMARY | 2024-03-19 20:34 | XMS_ITS | Encounter Summary ---
Author Organization [facility] Address [address] [place] [address] Care Team Providers Care Portrait Studio Photographer Name Role Phone Jean Joy MD Unavailable [phone] Jaden Thakur DO Unavailable [phone] Jaden Thakur DO Primary Care Provider + Reason for Visit * Reason Comments Refill Request Encounter Details Date Type Department Care Team (Late st Contact Info) Description 02/15/2023 Refill [facility] - Neurology [address] [facility], [place] [phone] Jim Walter MD [address] [place] [address] Refill Request Social History Tobacco Use Types [...] on filedocumented in this encounter Care Teams Portrait Studio Photographer Relationship Specialty Start Date End Date Jean Joy MD PCP - OBGYN 12/27/07 Jaden Thakur DO [address] [place] [address] PCP - Attributed-[facility] EHP STL 09/10/19 06/28/23 Jaden Thakur DO [address] [place] [address] PCP - General Family Medicine Geriatric Medicine 01/05/23 documented as of this encounter
--- OUTSIDE RECORDS SUMMARY | 2024-03-19 20:34 | XMS_ITS | Encounter Summary ---
Author Organization [facility] Address [address] [facility] [place] [address] Care Team Providers Care Biomass Technician Name Role Phone Jean Joy MD Unavailable [phone] Jaden Thakur DO Unavailable [phone] Doreen Aviles Unavailable [phone] Jaden Thakur DO Primary Care Provider + Reason for Visit * Reason Onset Date Comments MEDICATION REFILL 01/15/2023 Encounter Details Date Type Department Care Team (Late st Contact Info) Description 01/15/2023 Refill [facility] - Neurology [address] [facility] [place] [phone] Sosa Degroot MD [address] [facility] [place] [address] MEDICATION REFILL Social History Tobacco Use Types [...] Recorded Patient Health Questionnaire-2 Score 0 11/15/2022 [facility] of Occupat ional Health - Occupational [...] on filedocumented in this encounter Care Teams Biomass Technician Relationship Specialty Start Date End Date Jean Joy MD PCP - OBGYN 12/27/07 Jaden Thakur DO [address] [place] [address] PCP - Attributed-[facility] EHP STL 09/10/19 06/28/23 Jaden Thakur DO [facility] [place] [address] PCP - General Family Medicine Geriatric Medicine 01/05/23 Doreen Aviles Care Coordination Specialist Care Management 11/30/22 01/18/23 documented as of this encounter
--- OUTSIDE RECORDS SUMMARY | 2024-03-19 20:34 | XMS_ITS | Encounter Summary ---
Author Organization [facility] Address [address] [facility] [place] [address] Care Team Providers Care Loft Worker Pile Driving Name Role Phone Jean Joy MD Unavailable [phone] Jaden Thakur DO Unavailable [phone] Arlyn Hernandez RN Unavailable Doreen Aviles Unavailable Jaden Thakur DO Primary Care Provider + Reason for Visit * Reason Onset Date Comments Transitions Of Care 01/11/2023 Encounter Details Date Type Department Care Team (Late st Contact Info) Description 01/11/2023 Patient Outreach [facility] - Care Coordination [address] [place] [phone] Doreen Aviles Transitions Of Care Social History [...] Recorded Patient Health Questionnaire-2 Score 0 11/15/2022 [facility] of Occupat ional Health - Occupational [...] * Telephone Encounter - Doreen Orourke - 01/11/2023 1:15 PM CDT Patient is currently admitted to hospital, [facility] will close pac dc at this time. documented in this encounter Plan of Treatment Not on file documented as of this encounter Visit Diagnoses Not on filedocumented in this encounter Care Teams Loft Worker Pile Driving Relationship Specialty Start Date End Date Jean Joy MD PCP - OBGYN 12/27/07 Jaden Thakur DO [address] [place] [address] PCP - Attributed-[facility] EHP STL 09/10/19 06/28/23 Jaden Thakur DO [address] [place] [address] PCP - General Family Medicine Geriatric Medicine 01/05/23 Arlyn Hernandez RN Post Acute Welfare InvestigatorDirector Of Acquisition Marketing 11/21/22 Doreen Aviles Care Coordination Specialist Care Management 11/30/22 01/18/23 documented as of this encounter
--- OUTSIDE RECORDS SUMMARY | 2024-03-19 20:34 | XMS_ITS | Encounter Summary ---
Author Organization [facility] Address [address] [facility] [place] [address] Care Team Providers Care Database Architect Name Role Phone Jean Joy MD Unavailable [phone] Jaden Thakur DO Unavailable [phone] Jaden Thakur DO Primary Care Provider + Encounter Details Date Type Department Care Team (Late st Contact Info) Description 02/21/2023 Orders Only [facility] - Orthopedics [address] [facility] [place] [address] Ngoc Chandler PA-C [address] [place] [address] It band syndrome, left ; Greater trochanteric [...] Recorded Patient Health Questionnaire-2 Score 0 11/15/2022 [facility] [place] of Occupat ional Health - Occupational Stress [...] region documented in this encounter Care Teams Database Architect Relationship Specialty Start Date End Date Jean Joy MD PCP - OBGYN 12/27/07 Jaden Thakur DO [address] [place] [address] PCP - Attributed-[facility] EHP STL 09/10/19 06/28/23 Jaden Thakur DO [address] [place] [address] PCP - General Family Medicine Geriatric Medicine 01/05/23 documented as of this encounter
--- OUTSIDE RECORDS SUMMARY | 2024-03-19 20:34 | XMS_ITS | Encounter Summary ---
Author Organization [facility] Address [address] [facility] [place] [address] Care Team Providers Care Hazardous Materials Waste Technician Name Role Phone Jean Joy MD Unavailable Yvan Booth MD Primary Care Provider [phone] Jaden Thakur DO Unavailable [phone] Arlyn Hernandez RN Unavailable [phone] Doreen Aviles Unavailable [phone] Reason for Visit * Reason Onset Date Comments Transitional Care 12/29/2022 Encounter Details Date Type Department Care Team (Late st Contact Info) Description 12/29/2022 Patient Outreach [facility] - Care Coordination [facility] [place] [address] Arlyn Hernandez, RN Transitional Care [...] Recorded Patient Health Questionnaire-2 Score 0 11/15/2022 [facility] - Occupational Stress Questionnaire Answer Date Recorded [...] Telephone Encounter - Arlyn Hernandez RN - 12/29/2022 2:11 PM CDT Spoke with patients re cardiology follow up. States today he scheduled f/u SARAH but has not heard anything about f/u with any electronic resources librarian. documented in this encounter Plan of Treatment Not on file documented as of this encounter Visit Diagnoses Not on filedocumented in this encounter Care Teams Hazardous Materials Waste Technician Relationship Specialty Start Date End Date Jean Joy MD PCP - OBGYN 12/27/07 Yvan Booth MD [address] [place] [address] PCP - General 11/04/09 01/04/23 Jaden Thakur DO [facility] [place] [address] PCP - Attributed-[facility] EHP STL 09/10/19 06/28/23 Arlyn Hernandez, AMBROSE Post Acute Rn MidwifeVaccinator 11/21/22 Doreen Aviles Care Coordination Specialist Care Management 11/30/22 01/18/23 documented as of this encounter
--- OUTSIDE RECORDS SUMMARY | 2024-03-19 20:34 | XMS_ITS | Encounter Summary ---
Author Organization [facility] Address [address] [facility] [place] [address] Care Team Providers Care Reel Stripper Name Role Phone Jean Joy MD Unavailable [phone] Jaden Thakur DO Unavailable [phone] Jaden Thakur DO Primary Care Provider + Reason for Referral * PT/OT/ST (Routine) - Closed Specialty Diagnoses / Procedures Referred By Contac t Referred To Contact Physical Therapist Diagnoses Greater trochanteric bursitis of left hip It band syndrome, left Ngoc Chandler PA-C [address] [place] [address] Referral ID Status Reason Start Date Expiration Date V isits Requested Visits Authorized [id number] Closed Specialty Services Required 02/15/2023 02/15/2024 1 1 F NECK LOADER Reason for Visit * Reason Comments Pain Hip Left hip pain Encounter Details Date Type Department Care Team (Late st Contact Info) Description 02/15/2023 2:00 PM STIFF NECK LOADER Office Visit [facility] - Orthopedics [address] [facility] [place] [address] Jaden Thakur DO [address] [place] [address] Ngoc Chandler PA-C [address] [place] [address] Greater trochanteric bursitis of left hip (Primary Dx); It band syndrome, left Social History Tobacco Use Types Packs/Day Years [...] Recorded Patient Health Questionnaire-2 Score 0 11/15/2022 [facility] [place] of Occupat ional Health - Occupational Stress [...] slept in a residential (including now)? No 01/10/2023 Sex and Gender [...] - - Weight 89.4 kg (197 lb) 02/15/2023 2:51 PM STIFF NECK LOADER Height - - Body Mass Index 33.81 02/03/2023 5:32 PM STIFF NECK LOADER documented in this encounter Functional Status Functional [...] * Patient Instructions* Ngoc Chandler PA-C - 02/15/2023 3:39 PM STIFF NECK LOADER Images from the original note were not included. [facility] Consuelo Darby 02/15/2023 Thank you for coming in to see us today for your hip pain. Work/School Excuse: Excused from Work/School on 02/15/23 DIAGNOSIS: Greater trochanteric bursitis of left hip - Plan: lidocaine PF (Xylocaine MPF) 1 % injection 5 mL, ROPivacaine (Naropin) 5 MG/ML (0.5%) injection 5 mg, triamcinolone acetonide (Kenalog-40) injection 40 mg, AMB REFERRAL TO PHYSICAL THERAPY, diclofenac sodium (Voltaren) 1 % gel It band syndrome, left - Plan: lidocaine PF (Xylocaine MPF) 1 % injection 5 mL, ROPivacaine (Naropin) 5 MG/ML (0.5%) injection 5 mg, triamcinolone acetonide (Kenalog-40) injection 40 mg, AMB REFERRALTO PHYSICAL THERAPY, diclofenac sodium (Voltaren) 1 % gel Plan: -Referral will be given to Physical Therapy for your hip pain -Ordered Diclofenac Gel to apply 4 times a day as needed for pain, make sure to wash your hands after applying the medication. -We discussed and recommended conservative treatment which includes: icing, physical therapy exercises, corticosteroid injections, anti-inflammatory medications, tylenol, and activity modification -Referral to Pain Management Follow up: as needed Please contact us at to make an [...] Then, can apply ice again if needed. [facility] Orthopaedic office contact information: Please contact our clinic call center at if you need to schedule or change an appointment. You can call my nurse, Natalee Montano at [phone] if you have any questions or concerns Location: [facility] [address] [facility], [place] [address] Clinic [address] [facility], [place] [address] FOR MEDICAL EMERGENCIES PLEASE CALL 911 Sincerely, Ngoc Chandler PA-C Certified Physician Copier Field Service Technician Orthopedic Surgery Department F NECK LOADER documented in this encounter Progress Notes * Ngoc Chandler PA-C - 02/15/2023 3:51 PM CST ORTHOPAEDIC MEDICINE CLINIC Consuelo Darby 42 year old female CSN: [id number] Date of service: 02/21/2023 HPI Today we had the pleasure of [...] exercises and corticosteroid injections for their symptoms. Prior Treatments: History of Steroid use or Steroid Injections to affected joint: Yes while in rehab Physical Therapy: has participated in PT in the past and is actively involved 02/15/2023 Patient-entered Ortho Intake Form Referring provider pcp Reason for visit Left Hip (or thigh) What are your symptoms? Pain How did this pain/injury begin? post stroke When did your pain/injury start? october2022 Does any other area/part of your body hurt? left shoulder Active Worker's Comp claim? No Pain level at rest 8 Pain level with activity 8 What makes your pain worse? arm movement Treatments tried Rest/activity modification Over the counter pain medication Opioid/narcotic pain medication Injection Currently employed? Yes Smoking status Previous Smoker Alcohol intake? No Taking opioid/narcotic? Yes 02/15/2023 Patient-Reported Satisfaction Current state satisfactory? No Prior treatment? Yes - non-surgical treatment Function since treatment Improved Currently taking narcotics? Yes 02/15/2023 PROMIS Pain Interference PROMIS PI Score 67 (moderate) 02/15/2023 PROMIS Physical Function PROMIS PF Score 24 (severe dysfunction) Objective Weight 89.4 kg (197 lb), not currently . PMHx Past Medical [...] Right 01/10/2023 Right; right cranioplasty, replacement of viejas bone ??? Embolectomy Right 10/30/2022 Right; RIGHT ILEO femoral thrombectomy VIA CUTDOWN. REPAIR OF FEMORAL ARTERY WITH PATCH. ANGIOGRAM ??? ENDOSCOPY, UPPER N/A 2022 N/A; ESOPHAGOGASTRODUODENOSCOPY (EGD) DIAGNOSTIC with PEG Placement ??? ENDOSCOPY, UPPER N/A 11/10/2022 N/A; EGD, POSS. EX-LAP LEVEL 3 @ 1500 Social Hx Social History Tobacco Use ??? Smoking status: Former Packs/day: .5 Types: Cigarettes Quit date: 2014 Years since quittin.9 ??? Smokeless tobacco: Never [...] Fever Medications Current Outpatient Medications Medication ??? baclofen (Lioresal) 5 MG TABS ??? bethanechol (Urecholine) 25 MG tablet ??? Cetirizine HCl (ZYRTEC PO) ??? Cholecalciferol 25 MCG (1000 UT) ??? cyclobenzaprine (Flexeril) 5 MG tablet ??? diclofenac sodium (Voltaren) 1 % gel ??? DULoxetine (Cymbalta) 60 MG capsule ??? fluconazole (Diflucan) 150 MG tablet ??? gabapentin (Neurontin) 300 MG capsule ??? HYDROcodone-acetaminophen (Manteo) 5-325 MG tablet ??? hydrOXYzine HCl (Atarax) [...] significant sclerosis or subchondral cyst formation - Please see separate radiographic report for formal read by Radiology Assessment/Plan: 42 year old female with left greater trochanteric bursitis and IT band syndrome with mild left hip Degenerative Joint Disease - Patient was counseled to the nature [...] work and other invasive procedures - Rx: Diclofenac Gel to apply 4 times a day as needed for pain, make sure to wash your hands afterapplying the medication. - Order for physical therapy for hip pain - Left Greater trochanteric bursitis steroid injection in clinic today. See procedure note. - Recommend continued use of NSAID's, 2000 units Vitamin D daily, 1500 to 2000 mg Glucosamine/chondroitin daily, Voltaren Gel, and use of assistive devices for ambulation/balance - Return to clinic as needed - Referral to Pain Management to discuss ablation procedure - The patient understands and agrees with the plan. All questions answered. Ngoc Chandler PA-C 02/21/2023 3:34 PM F NECK LOADER * Natalee Montano RN - 02/15/2023 2:49 PM CST Chief Complaint: Chief Complaint Patient presents with ??? Pain Hip Left hip pain Wt 89.4 kg (197 lb) F NECK LOADER documented in this encounter Procedure Notes * Ngoc Chandler PA-C - 02/15/2023 3:40 PM CST Consuelo Darby is a 42 year old female patient. Procedures Orthopaedic Surgery Procedure Note Diagnosis: left hip trochanteric bursitis/pain After risks, benefits, alternatives were discussed, the patient elected to proceed forward with corticosteroid injection. The appropriate site and side was confirmed with the patient. The left greater trochanter was prepped with betadine and alcohol. Ethyl Chloride was used to anesthetize the skin.5cc's of 1% Licodaine was used to anesthetize the skin followed by a combination of 1cc of 0.5% Ropivacaine + 1cc of 40mg Kenalog was injected into the greater trochanteric bursa. A sterile bandage was applied. The patient tolerated the procedure well without complications. Post-injection instructions were given to the patient. Ngoc Chandler PA-C 02/15/2023 3:40 PM F NECK LOADER documented in this encounter Plan of Treatment Scheduled Referrals Name Type Priority Associated Diagnoses Orde r Schedule AMB REFERRAL TO PHYSICAL THERAPY Outpatient Referral Routine Greater trochanteric bursitis of left hip It band syndrome, left 1 Occurrences starting 02/15/2023 until 02/16/2024 documented as of this encounter Visit Diagnoses Diagnosis Greater trochanteric bursitis of left hip- Primary Enthesopathy of hip region It band syndrome, left documented in this encounter Administered Medications Inactive Administered Medications - up to 3 most recent administrations Medication Order MAR Action Action Date Dose Rate Site lidocaine PF (Xylocaine MPF) 1 % injection 5 mL 5 mL, Intra-articular, ONCE, 1 dose, On [place] 02/15/23 at 1600 $ Given 02/15/2023 4:01 PM STIFF NECK LOADER 5 mL Left Hip ROPivacaine (Naropin) 5 MG/ML (0.5%) injection 5 mg 5 mg, Infiltration, ONCE, 1 dose, On [place] 02/15/23 at 1600 $ Given 02/15/2023 4:02 PM STIFF NECK LOADER 5 mg Left Hip triamcinolone acetonide (Kenalog-40) injection 40 mg 40 mg, Intramuscular, ONCE, 1 dose, On [place] 02/15/23 at 1600, Shake well before using. $ Given 02/15/2023 4:03 PM STIFF NECK LOADER 40 mg Other see comments documented in this encounter Care Teams Reel Stripper Relationship Specialty Start Date End Date Jean Joy MD PCP - OBGYN 12/27/07 Jaden Thakur DO [address] [place] [address] PCP - Attributed-[facility] EHP STL 09/10/19 06/28/23 Jaden Thakur DO [address] [place] [address] PCP - General Family Medicine Geriatric Medicine 01/05/23 documented as of this encounter
--- OUTSIDE RECORDS SUMMARY | 2024-03-19 20:35 | XMS_ITS | Encounter Summary ---
Author Organization [facility] Address [address] [facility] [place] [address] Care Team Providers Care Registered Health Nurse Name Role Phone Jean Joy MD Unavailable [phone] Yvan Booth MD Primary Care Provider [phone] Jaden Thakur DO Unavailable [phone] Arlyn Hernandez RN Unavailable [phone] Doreen Aviles Unavailable [phone] Encounter Details Date Type Department Care Team (Latest Contact Info) Description 12/14/2022 Travel Social History Tobacco Use Types Packs/Day [...] Never 10/19/2022 Overall Financial Resource Strain (CARDIA) Anitae r Date Recorded How hard is it for you to pa y for the very basics like food, housing, medical care, and heating? Not very hard 10/19/2022 PHQ-2 Answer Date Recorded Patient Health Questionnaire-2 Score 0 11/15/2022 [facility] [place] of Occupat ional Health - Occupational Stress [...] slept in a alf (including now)? No 10/19/2022 Sex and Gender [...] No 2022 documented as of this encounter Plan of Treatment Not on file documented as of this encounter Visit Diagnoses Not on filedocumented in this encounter Care Teams Registered Health Nurse Relationship Specialty Start Date End Date Jean Joy MD PCP - OBGYN 12/27/07 Yvan Booth MD [address] [place] [address] PCP - General 11/04/09 01/04/23 Jaden Thakur DO [address] [place] [address] PCP - Attributed-[facility] EHP STL 09/10/19 06/28/23 Arlyn Hernandez, AMBROSE Post Acute Land AgentIrrigation Pump Installer 11/21/22 Doreen Aviles Care Coordination Specialist Care Management 11/30/22 01/18/23 documented as of this encounter
--- OUTSIDE RECORDS SUMMARY | 2024-03-19 20:35 | XMS_ITS | Encounter Summary ---
Author Organization [facility] Address [address] [facility] [place] [address] Care Team Providers Care Plant Packer Name Role Phone Jean Joy MD Unavailable Yvan Booth MD Primary Care Provider [phone] Jaden Thakur DO Unavailable Arlyn Hernandez RN Unavailable [phone] Doreen Aviles Unavailable [phone] Encounter Details Date Type Department Care Team (Late st Contact Info) Description 12/26/2022 3:45 PM CDT Office Visit [facility] - Vascular Surgery [address] [place] [address], [place] [id number] Jazz [place] MD [address] [place] [address] [address] [place] [address] Valdez Clay MD [address] [place] [address] 2[address] [place] [address] Common femoral artery injury, right, subsequent encounter (Primary Dx) Social History Tobacco Use Types [...] Recorded Patient Health Questionnaire-2 Score 0 11/15/2022 [facility] Occupat ional Health - [...] in a long term (including now)? 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 She had a very prolonged complicated hospital course that was complicated and required multiple surgical procedures I was consulted for an iatrogenic right femoral artery injury with occlusion due to maldeployed percutaneous closure device after a cerebral angiogram with intervention I repaired this in October with open thrombectomy and repair of the vessel with bovine pericardial patch angioplasty Doing better now She is ambulatory and conversant, eating well on her own and feeding tube has been removed No complaints of pain in either leg Right groin incision is well healed, no signs of infection, no hematoma She has palpable pulses in both feet YING's are normal bilaterally today and duplex shows no femoral stenosis Does not need any further vascular treatment or surveillance unless she develops new symptoms or concerns Date of service: 12/26/2022 Valdez [place] MD 12/29/2022 10:36 AM documented in this encounter Plan of Treatment Not on file documented as of this encounter Visit Diagnoses Diagnosis Common femoral artery injury, right, subsequent encounter- Primary documented in this encounter Care Teams Plant Packer Relationship Specialty Start Date End Date Jean Joy MD PCP - OBGYN 12/27/07 Yvan Booth MD [address] [place] [address] PCP - General 11/04/09 01/04/23 Jaden Thakur DO [address] [place] [address] PCP - Attributed-[facility] EHP STL 09/10/19 06/28/23 Arlyn Hernandez RN Post Acute Donor Relations ManagerProgram Specialist 11/21/22 Doreen Aviles Care Coordination Specialist Care Management 11/30/22 01/18/23 documented as of this encounter
--- OUTSIDE RECORDS SUMMARY | 2024-03-19 20:35 | XMS_ITS | Encounter Summary ---
Author Organization [facility] Address [address] [facility] [place] [address] Care Team Providers Care Pocket Maker Name Role Phone Jean Joy MD Unavailable Yvan Booth MD Primary Care Provider [phone] Jaden Thakur DO Unavailable Arlyn Hernandez RN Unavailable [phone] Reason for Visit * Reason Onset Date Comments Transitional Care 11/21/2022 Encounter Details Date Type Department Care Team (Late st Contact Info) Description 11/21/2022 Patient Outreach [facility] Medical [facility] - Care Coordination [address] [place] [phone] Arlyn Hernandez, RN Transitional Care Social History [...] Recorded Patient Health Questionnaire-2 Score 0 11/15/2022 [facility] Occupat ional Health - Occupational [...] Telephone Encounter - Arlyn Hernandez RN - 11/21/2022 2:15 PM CDT Discharge from Hospital to Post Acute Care Facility Outreach for Care Coordination Reason For Call: IP Discharge [facility]: [place], [place] Most recent hospital / facility discharge date: 11/17/22 Level of Care Management Acute Rehab awaiting discharge Facility Information: Facility Contact name / number: [facility] Dx: cva EMR reviewed Unable to outreach to facility at this time Will continue weekly EMR review to verify DC plan. Arlyn Hernandez RN 11/21/2022 2:24 PM documented in this encounter Plan of Treatment Not on file documented as of this encounter Visit Diagnoses Not on filedocumented in this encounter Care Teams Pocket Maker Relationship Specialty Start Date End Date Jean Joy MD PCP - OBGYN 12/27/07 Yvan Booth MD [address] [place] [id number] PCP - General 11/04/09 01/04/23 Jaden Thakur DO [address] [place] [address] PCP - Attributed-[facility] EHP STL 09/10/19 06/28/23 Arlyn Hernandez RN Post Acute Radiation TherapistSales And Leasing Agent 11/21/22 documented as of this encounter
--- OUTSIDE RECORDS SUMMARY | 2024-03-19 20:35 | XMS_ITS | Encounter Summary ---
Author Organization [facility] Address [address] [place] [address] Care Team Providers Care Band Lining Bander Name Role Phone Jean Joy MD Unavailable [phone] Yvan Booth MD Primary Care Provider [phone] Jaden Thakur DO Unavailable Arlyn Hernandez RN Unavailable Doreen Aviles Unavailable Reason for Referral * Radiology Services (Urgent) - Closed Specialty Diagnoses / Procedures Referred By Jimena t Referred To Contact CT Scan Diagnoses Acquired skull defect Procedures CT HEAD WO CONTRAST Jazz [place] MD [address] [facility] 2L [place] [address] [facility] [address] [place] [address] Referral ID Status Reason Start Date Expiration Date Visits Re quested Visits Authorized [id number] Closed 11/29/2022 03/29/2023 1 1 Reason for Visit * Radiology Services (Urgent) - Closed Specialty Diagnoses / Procedures Referred By Contac t Referred To Contact CT Scan Diagnoses Acquired skull defect Procedures CT HEAD WO CONTRAST Jazz [place] MD [address] [facility] 2[place] [address] [facility] [address] [place] [address] Referral ID Status Reason Start Date Expiration Date Visits Re quested Visits Authorized [id number] Closed 11/29/2022 03/29/2023 1 1 Encounter Details Date Type Department Care Team (Latest Contact Info) Description 12/21/2022 8:09 AM CDT - 12/21/2022 10:24 AM CDT Hospital Encounter [facility] CAT SCAN [address] [place] [address] Jazz [place] MD [address] [facility] [address] [place] [address] Discharge Disposition: Home or Self Care Social [...] Health Questionnaire-2 Score 0 11/15/2022 [facility] of Occupat ional Health - Occupational Stress [...] slept in a assisted (including now)? No 10/19/2022 Sex and Gender [...] No 2022 documented as of this encounter Medications at [...] (one) capsule by mouth at bedtime 10/17/2022 acetaminophen (Tylenol) 500 MG tablet 1 (one) tablet by Intracatheter route every 6 hours as needed 12/14/2022 01/06/20 amitriptyline (Elavil) 50 MG tablet Take 2 (two) tablets by mouth at bedtime 08/17/2022 12/26/2022 baclofen (Lioresal) 5 MG TABS Take 1 (one) tablet by mouth at bedtime 12/14/2022 01/15/2023 baclofen (Lioresal) 5 MG TABS 1 (one) tablet once daily 12/14/2022 01/05/2023 bethanechol (Urecholine) 25 MG tablet Take 1 (one) tablet by mouth 3 times daily 12/14/2022 04/05/2023 bethanechol (Urecholine) 25 MG tablet 12/14/2022 01/05/2023 enoxaparin (Lovenox) 100 MG/ML injection Inject 100 (one hundred) mg subcutaneously every 12 hours 11/17/2022 01/05/2023 gabapentin (Neurontin) 300 MG capsule Take 1 (one) capsule by mouth 3 times daily 12/14/2022 01/15/2023 levETIRAcetam (Keppra) 500 MG tablet Take 1 (one) tablet by mouth 2 times daily 60 tablet 1 01/11/2023 02/15/2023 omeprazole (PriLOSEC) 20 MG capsule Take 20 mg by mouth daily before breakfast oxyCODONE, immediate release, (Roxicodone) 5 MG tabletIndications:Ac quired skull defect Take 1 (one) tablet by mouth every 4 hours as needed 56 tablet 01/11/2023 04/05/2023 polyethylene glycol 3350 (Miralax) 17 g packet Insert 17 (seventeen) g into appropriate tube 2 times daily as needed 12/14/2022 04/05/2023 tamsulosin (Flomax) 0.4 MG capsule Take 1 (one) capsule by mouth once daily 12/14/2022 04/05/2023 triamcinolone acetonide (Kenalog) 0.1 % ointment Apply to affected area 2 times daily as needed 11/17/2022 12/27/19 Vitamin D3, cholecalciferol, 50 MCG (2000 UT) tablet Take 1 (one) tablet by mouth once daily 01/05/2023 warfarin (Coumadin) 1 MG tablet Take 3.5 (three and one-half) tablets by mouth once daily 12/14/2022 01/09/2023 warfarin (Coumadin) 5 MG tabletIndications:Em bolism Take 1 (one) tablet by mouth once daily Please prescribe warfarin based on pharmacy orders and bridge with enoxaparin; INR goal 2-3 Reasons: Blood Vessel Obstruction by Foreign Substance or Clot 11/17/2022 01/09/2023 documented as of this encounter Plan of Treatment Not on file documented as of this encounter Procedures Procedure Name Priority Date/Time Associated Diagnosis Comments CT HEAD WO CONTRAST JOSE GUADALUPE 12/21/2022 8 :23 AM CDT Acquired skull defect documented in this encounter Results * CT HEAD WO CONTRAST (12/21/2022 8:23 AM CDT) Anatomical Region Laterality Modality Head Computed Tomogra phy 12/21/2022 8:55 AM CDT Impressions 12/21/2022 12:02 PM CDT IMPRESSION: 1.Redemonstration of postsurgical changes of right frontotemporoparietal decompressive craniectomy with expected interval evolution of the previously seen postsurgical changes and expected interval evolution of the 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 2.Subtle paradoxical medial deviation of the anterior aspect of the craniectomy flap but no mass effect or significant compression to suggest Syndrome of the trephined. 3.No new acute intracranial hemorrhage. > Dictated by Alejandro Clifford MD (Clinical Assoc) Jasper Ornelas MD have personally reviewed and interpreted this examination/study. 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 Additional: ??None. ?? TECHNIQUE: CT of the head was performed without contrast according to standard protocol. CT dose reduction technique was used, including Automated Exposure Control. COMPARISON: Outside facility CT of the head from 11/19/2022 [facility]. CT of the head from 11/05/2022. FINDINGS: Redemonstration of evolving postsurgical changes of decompressive right temporofrontal parietal craniectomy with expected interval evolution of the large right MCA territory encephalomalacia. Decreased external herniation through the craniectomy defect more anteriorly, with mild paradoxical interior/medial displacement of the anterior aspect of the craniectomy flap with persistence subtle external herniation posteriorly. Small volume redistributed extra cranial continuous fluid collection measures approximately 11 mm in thickness, (series 2, image 16). Mild ex vacuo dilation of the right lateral ventricle and slight parieto-occipital [id number] midline shift of approximately 5 mm at the level of the interhemispheric fissure. Mild encephalomalacia in the left frontal perisylvian region. Otherwise, no acute intra- or extra-axial fluid collections are identified. There is mild cerebral volume loss with associated ex vacuo ventricular dilatation. The basilar cisterns are patent. The scott-white matter differentiation is normal. Periventricular white matter hypoattenuation is nonspecific. No acute calvarial fracture is identified. The orbits appear normal. The paranasal sinuses are clear. The mastoid air cells are grossly clear. No soft tissue abnormality is identified. 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 Additional: None. TECHNIQUE: CT of the head was performed without contrast according to standard protocol. CT dose reduction technique was used, including Automated Exposure Control. COMPARISON: Outside facility CT of the head from 11/19/2022 from [facility]. CT of the head from 11/05/2022. FINDINGS: Redemonstration of evolving postsurgical changes of decompressive right temporofrontal parietal craniectomy with expected interval evolution ofthe large right MCA territory encephalomalacia. Decreased externalherniation through the craniectomy defect more anteriorly, with mild paradoxical interior/medial displacement of the anterior aspect of the craniectomyflap with persistence subtle external herniation posteriorly. Small volume redistributed extra cranial continuous fluid collection measures approximately 11 mm in thickness, (series 2, image 16). Mild ex vacuo dilation of the right lateral ventricle and slight parieto-occipital [id number]-ap-pjgzg midline shift of approximately 5 mm at the level of the interhemispheric fissure. Mild encephalomalacia in the left frontal perisylvian region. Otherwise, no acute intra- or extra-axial fluid collections areidentified. There is mild cerebral volume loss with associated ex vacuo ventricular dilatation. The basilar cisterns are patent. The scott-white matter differentiation is normal. Periventricular white matter hypoattenuationis nonspecific. No acute calvarial fracture is identified. The orbitsappear normal. The paranasal sinuses are clear. The mastoid air cells aregrossly clear. No soft tissue abnormality is identified. IMPRESSION: 1.Redemonstration of postsurgical changes of right frontotemporoparietal decompressive craniectomy with expected interval evolution of the previously seen postsurgical changes and expected interval evolution ofthe 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 2.Subtle paradoxical medial deviation of the anterior aspect of the craniectomy flap but no mass effect or significant compression tosuggest Syndrome of the trephined. 3.No new acute intracranial hemorrhage. > Dictated by Alejandro Clifford MD (Clinical Assoc) IJasper MD have personally reviewed and interpretedthis examination/study. > Interpreting Provider: Jasper Sifuentes MD on 12/21/2022 12:02PM Jazz [place] MD CT ORDERABLES documented in this encounter Visit Diagnoses Diagnosis Acquired skull defect Other specified acquired deformity of head documented in this encounter Care Teams Band Lining Bander Relationship Specialty Start Date End Date Jean Joy MD PCP - OBGYN 12/27/07 Yvan Booth MD [address] [place] [phone] PCP - General 11/04/09 01/04/23 Jaden Thakur DO [address] [place] [address] PCP - Attributed-[facility] EHP STL 09/10/19 06/28/23 Arlyn Hernandez, AMBROSE Post Acute Validation LeaderContinuous Improvement Black Belt 11/21/22 Doreen Aviles Care Coordination Specialist Care Management 11/30/22 01/18/23 documented as of this encounter
--- OUTSIDE RECORDS SUMMARY | 2024-03-19 20:35 | XMS_ITS | Encounter Summary ---
Author Organization [facility] Address [address] [facility] [place] [address] Care Team Providers Care Gold Tooler Name Role Phone Jean Joy MD Unavailable [phone] Yvan Booth MD Primary Care Provider [phone] Jaden Thakur DO Unavailable [phone] Arlyn Hernandez RN Unavailable [phone] Doreen Aviles Unavailable [phone] Reason for Referral * Radiology Services (Routine) - Closed Specialty Diagnoses / Procedures Referred By Contac t Referred To Contact Vascular Lab Diagnoses Iliac artery occlusion, right (HCC) Procedures VAS ARTERIAL ANKLE ARM INDEX Valdez Clay MD [facility] OF [place] [address] [facility] [address] [place] [address] Referral ID Status Reason Start Date Expiration Date Visits Re quested Visits Authorized [id number] Closed 10/31/2022 10/31/2023 1 1 Reason for Visit * Radiology Services (Routine) - Closed Specialty Diagnoses / Procedures Referred By Contac t Referred To Contact Vascular Lab Diagnoses Iliac artery occlusion, right (HCC) Procedures VAS ARTERIAL ANKLE ARM INDEX Valdez [place] MD [address] [facility] 2L DIV [place] [address] [facility] [address] [place] [address] Referral ID Status Reason Start Date Expiration Date Visits Re quested Visits Authorized [id number] Closed 10/31/2022 10/31/2023 1 1 Encounter Details Date Type Department Care Team (Latest Contact Info) Description 12/26/2022 9:37 AM CDT - 12/26/2022 9:43 AM CDT Hospital Encounter [facility] VASCULAR US [address] [place] [address] Valdez Clay MD [address] [facility] 2L DIV [place] [address] Discharge Disposition: Home or Self Care Social [...] Recorded Patient Health Questionnaire-2 Score 0 11/15/2022 [facility] of Occupat ional Health - Occupational Stress [...] slept in a intermediate (including now)? No 10/19/2022 Sex and Gender [...] every 6 hours as needed 12/14/2022 01/06/20 baclofen (Lioresal) 5 MG TABS Take 1 (one) tablet by mouth at bedtime 12/14/2022 01/15/2023 baclofen (Lioresal) 5 MG TABS 1 (one) tablet once daily 12/14/2022 01/05/2023 bethanechol (Urecholine) 25 MG tablet Take 1 (one) tablet by mouth 3 times daily 12/14/2022 04/05/2023 bethanechol (Urecholine) 25 MG tablet 12/14/2022 01/05/2023 cefdinir (Omnicef) 300 MG capsule 12/22/2022 01/05/2023 enoxaparin (Lovenox) 100 MG/ML injection Inject 100 (one hundred) mg subcutaneously every 12 hours 11/17/2022 01/05/2023 fluconazole (Diflucan) 150 MG tablet 12/22/2022 01/05/2023 gabapentin (Neurontin) 300 MG capsule Take 1 (one) capsule by mouth 3 times daily 12/14/2022 01/15/2023 HYDROcodone-acetamin ophen (Rickreall) 5-325 MG tablet TAKE 1 TABLET BY MOUTH EVERY 6 HOURS NEEDED FOR PAIN OR ACUTE PAIN 12/22/2022 levETIRAcetam (Keppra) 500 MG tablet Take 1 [...] capsule by mouth once daily 12/14/2022 04/05/2023 Vitamin D3, cholecalciferol, 50 MCG (2000 UT) [...] Procedure Name Priority Date/Time Associated Diagnosis Comments VAS ARTERIAL ANKLE ARM INDEX Routine 12/26/2022 11:21 AM CDT Iliac artery occlusion, right (HCC) documented in this encounter Results * VAS ARTERIAL ANKLE ARM INDEX (12/26/2022 11:21 AM CDT) Anatomical Region Laterality Modality Ankle / Foot, Upper Extremity In travascular Ultrasound 12/26/2022 10:3 9 AM CDT Narrative Procedure Note Ulises Ahumada MD - 12/26/2022 Valdez Clay MD VASCULAR LAB ORDER NISSA documented in this encounter Visit Diagnoses Diagnosis Iliac artery occlusion, 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
--- OUTSIDE RECORDS SUMMARY | 2024-03-19 20:35 | XMS_ITS | Encounter Summary ---
Author Organization [facility] Address [address] [facility] [place] [address] Care Team Providers Care Survey Compiler Name Role Phone Jean Joy MD Unavailable Yvan Booth MD Primary Care Provider [phone] Jaden Thakur DO Unavailable Arlyn Hernandez RN Unavailable Arlyn Hernandez RN Unavailable [phone] Doreen Aviles Unavailable Reason for Visit * Auth/Cert (Routine) Specialty Diagnoses / Procedures Referred By Contac t Referred To Contact Diagnoses CEREB INFRC D/T UNSP OCCLS OR STENOS OF RIGHT MID Referral ID Status Reason Start Date Expiration Date Visits Re quested Visits Authorized [id number] 1 1 Encounter Details Date Type Department Care Team (Latest Contact Info) Description 11/17/2022 4:24 PM CDT - 12/14/2022 9:01 AM CDT Hospital Encounter [address] [address] Yamileth Frias MD [address] [place] [address] [place] [phone] General Rehabilitation Discharge Disposition: Home or Self Care Social [...] Recorded Patient Health Questionnaire-2 Score 0 11/15/2022 [facility] of Occupat ional Health - Occupational [...] place to sleep or slept in a usp (including now)? No 10/19/2022 Sex and Gender [...] tablet by mouth 2 times daily 08/15/2022 verapamil SR 24hr (Verelan) 120 MG capsule [...] by mouth 3 times daily 12/14/2022 01/15/2023 omeprazole (PriLOSEC) 20 MG capsule Take 20 mg by mouth daily before breakfast polyethylene glycol 3350 (Miralax) 17 g packet Insert 17 (seventeen) g into appropriate tube 2 times daily as needed 12/14/2022 04/05/2023 tamsulosin (Flomax) 0.4 MG capsule Take 1 (one) capsule by mouth once daily 12/14/2022 04/05/2023 triamcinolone acetonide (Kenalog) 0.1 % ointment Apply to affected area 2 times daily as needed 11/17/2022 12/26/2022 vitamin D3 (Cholecalciferol) 25 MCG (1000 UNITS) tablet TAKE 2 TABLETS PER TUBE EVERY MORNING 12/14/2022 12/21/2022 Vitamin D3, cholecalciferol, 50 MCG (2000 UT) [...] 11/17/2022 01/09/2023 documented as of this encounter Consult Notes * Rayna Clarke LPN - 12/13/2022 9:46 AM CDT Referral not opened , as the patient is going to outpatient therapy. documented in this encounter Plan of Treatment Not on file documented as of this encounter Procedures Procedure Name Priority Date/Time Associated Diagnosis Comments FL SWALLOWING FUNCTION STUDY Routine 11/27/2022 1:56 PM CDT Dysphagia, unspecified type documented in this encounter Results * MODIFIED BARIUM SWALLOW W/SPEECH (11/27/2022 1:56 PM CDT) Anatomical Region Laterality Modality Chest Radiographic Irene ging 11/27/2022 2:39 PM CDT Impressions 11/27/2022 2:51 PM CDT IMPRESSION: Aspiration with thin liquids. Edited by Shruti Pablo on 11/27/2022 2:41 PM > Interpreting Provider: Osman Rahman MD on 11/27/2022 2:51 PM Narrative 11/27/2022 2:51 PM CDT PROCEDURE: ??FL SWALLOWING FUNCTION STUDY DATE/TIME OF EXAM: ??11/27/2022 2:17 PM CLINICAL INFORMATION: None relevant/not provided if blank. Indication: R13.10: Dysphagia, unspecified. FINDINGS: ?? Fluoroscopy and filming were provided for speech therapy during a modified swallow. Aspiration was seen with thin liquids. No aspiration or penetration was demonstrated with other consistency material. Procedure Note Osman Rahman MD - 11/27/2022 PROCEDURE: FL SWALLOWING FUNCTION STUDY DATE/TIME OF EXAM: 11/27/2022 2:17 PM CLINICAL INFORMATION: None relevant/not provided if blank. Indication: R13.10: Dysphagia, unspecified. FINDINGS: Fluoroscopy and filming were provided for speech therapy during amodified swallow. Aspiration was seen with thin liquids. No aspiration or penetration was demonstrated with other consistency material. IMPRESSION: Aspiration with thin liquids. Edited by Shruti Pablo on 11/27/2022 2:41 PM > Interpreting Provider: Osman Rahman MD on 11/27/2022 2:51 PM Yamileth Frias MD FLUOROSCOPY ORDERABL ES documented in this encounter Visit Diagnoses Diagnosis Dysphagia, unspecified type- Primary documented in this encounter Care Teams Survey Compiler Relationship Specialty Start Date End Date Jean Joy MD PCP - OBGYN 12/27/07 Yvan Booth MD [address] [place] [address] PCP - General 11/04/09 01/04/23 Jaden Thakur DO [address] [place] [address] PCP - Attributed-[facility] EHP STL 09/10/19 06/28/23 Arlyn Hernandez RN Post Acute Weigher And MixerInk Printer 11/20/22 Arlyn Hernandez RN Post Acute Weigher And MixerInk Printer 11/21/22 Doreen Aviles Care Coordination Specialist Care Management 11/30/22 01/18/23 documented as of this encounter
--- OUTSIDE RECORDS SUMMARY | 2024-03-19 20:35 | XMS_ITS | Encounter Summary ---
Author Organization [facility] Address [address] [place] [address] Care Team Providers Care Lighting Director Name Role Phone Jean Joy MD Unavailable [phone] Yvan Booth MD Primary Care Provider [phone] Jaden Thakur DO Unavailable [phone] Arlyn Hernandez RN Unavailable [phone] Doreen Aviles Unavailable Reason for Visit * Reason Onset Date Comments Transitions Of Care 12/13/2022 Encounter Details Date Type Department Care Team (Late st Contact Info) Description 12/13/2022 Patient Outreach [facility] Medical [facility] - Care Coordination [address] [place] [phone] Doreen Aviles Transitions Of Care Social History [...] Recorded Patient Health Questionnaire-2 Score 0 11/15/2022 [facility] of Occupat ional Health - Occupational [...] place to sleep or slept in a long-term (including now)? No 10/19/2022 Sex and Gender [...] * Telephone Encounter - Doreen Orourke - 12/13/2022 11:00 AM CDT Discharge from Hospital to Post Acute Care Facility Outreach for Care Coordination Discharge Level of Care Management Acute Rehab awaiting discharge Facility Information: Facility Contact name / number: [facility] ? Dx:??cva Will continue outreach to verify DC plan. Doreen Orourke 12/13/2022 11:00 AM documented in this encounter Plan of Treatment Not on file documented as of this encounter Visit Diagnoses Not on filedocumented in this encounter Care Teams Lighting Director Relationship Specialty Start Date End Date Jean Joy MD PCP - OBGYN 12/27/07 Yvan Booth MD [address] [place] [phone] PCP - General 11/04/09 01/04/23 Jaden Thakur DO [address] [place] [address] PCP - Attributed-[facility] EHP STL 09/10/19 06/28/23 Arlyn Hernandez, AMBROSE Post Acute Merchandise AppraiserHealth Care Attorney 11/21/22 Doreen Aviles Care Coordination Specialist Care Management 11/30/22 01/18/23 documented as of this encounter
--- OUTSIDE RECORDS SUMMARY | 2024-03-19 20:35 | XMS_ITS | Encounter Summary ---
Author Organization [facility] Address [address] [facility] [place] [address] Care Team Providers Care Senior Rd Engineer Name Role Phone Jean Joy MD Unavailable Yvan Booth MD Primary Care Provider [phone] Jaden Thakur DO Unavailable [phone] Arlyn Hernandez RN Unavailable [phone] Doreen Aviles Unavailable Reason for Visit * Reason Onset Date Comments Transitions Of Care 12/08/2022 Encounter Details Date Type Department Care Team (Late st Contact Info) Description 12/08/2022 Patient Outreach [facility] - Care Coordination [address] [place] [phone] Doreen Aviles Transitions Of Care Social History [...] Recorded Patient Health Questionnaire-2 Score 0 11/15/2022 [facility] of Occupat ional Health - Occupational Stress [...] encounter Miscellaneous Notes * Telephone Encounter - HavenDoreen - 12/08/2022 9:47 AM CDT Discharge from Hospital to Post Acute Care Facility Outreach for Care Coordination Discharge Level of Care Management Acute Rehab awaiting discharge Facility Information: Facility Contact name / number: [facility] ? Dx:??cva Will continue outreach to verify DC plan. Doreen Orourke 12/08/2022 9:47 AM documented in this encounter Plan of Treatment Not on file documented as of this encounter Visit Diagnoses Not on filedocumented in this encounter Care Teams Senior Rd Engineer Relationship Specialty Start Date End Date Jean Joy MD PCP - OBGYN 12/27/07 Yvan Booth MD [address] [place] [phone] PCP - General 11/04/09 01/04/23 Jaden Thakur DO [address] [place] [address] PCP - Attributed-[facility] EHP STL 09/10/19 06/28/23 Arlyn Hernandez, AMBROSE Post Acute Golf Shoe Spike AssemblerShearer Screen Measurer And Trimmer 11/21/22 Doreen Aviles Care Coordination Specialist Care Management 11/30/22 01/18/23 documented as of this encounter
--- OUTSIDE RECORDS SUMMARY | 2024-03-19 20:35 | XMS_ITS | Encounter Summary ---
Author Organization [facility] Address [address] [facility] [place] [address] Care Team Providers Care Director Investor Relations Name Role Phone Jean Joy MD Unavailable [phone] Yvan Booth MD Primary Care Provider [phone] Jaden Thakur DO Unavailable [phone] Arlyn Hernandez RN Unavailable [phone] Doreen Aviles Unavailable [phone] Reason for Visit * Reason Onset Date Comments Gastrostomy Problem 12/18/2022 Encounter Details Date Type Department Care Team (Late st Contact Info) Description 12/18/2022 Telephone [facility] [address] [facility] [place] [address] Saul Duron, RN Gastrostomy Problem Social History Tobacco Use Types Packs/Day Years [...] slept in a jail (including now)? No 10/19/2022 Sex and Gender [...] encounter Miscellaneous Notes * Telephone Encounter - Saul Duron, RN - 12/18/2022 11:32 AM CDT Calls triage seeking appt for suture removal PEG tube site. Please call for appt documented in this encounter Plan of Treatment Not on file documented as of this encounter Visit Diagnoses Not on filedocumented in this encounter Care Teams Director Investor Relations Relationship Specialty Start Date End Date Jean Joy MD PCP - OBGYN 12/27/07 Yvan Booth MD [address] [place] [phone] PCP - General 11/04/09 01/04/23 Jaden Thakur DO [address] [place] [address] PCP - Attributed-[facility] EHP STL 09/10/19 06/28/23 Arlyn Hernandez, AMBROSE Post Acute Mail Handler SorterAir Conditioning Specialist 11/21/22 Doreen Aviles Care Coordination Specialist Care Management 11/30/22 01/18/23 documented as of this encounter
--- OUTSIDE RECORDS SUMMARY | 2024-03-19 20:35 | XMS_ITS | Encounter Summary ---
Author Organization [facility] Address [address] [facility] [place] [address] Care Team Providers Care Cafeteria Cook Name Role Phone Jean Joy MD Unavailable Yvan Booth MD Primary Care Provider [phone] Jaden Thakur DO Unavailable [phone] Arlyn Hernandez RN Unavailable Doreen Aviles Unavailable [phone] Reason for Referral * Cardiac (Routine) - Closed Specialty Diagnoses / Procedures Referred By Contac t Referred To Contact Cardiology Diagnoses Vegetation of heart valve (HCC) Procedures ECHO SARAH PA ECHO TRANSESOPHAGEAL, INTERP/REP PA DOPPLER ECHO HEART,COMPLETE PA DOPPLER COLOR FLOW VELOCITY MAP Tr Michael MD [address] [facility], [address] [address] Referral ID Status Reason Start Date Expiration Date Visits Re quested Visits Authorized [id number] Closed 12/26/2022 12/26/2023 1 1 Encounter Details Date Type Department Care Team (Late st Contact Info) Description 12/26/2022 Orders Only [facility] - Cardiology [address] [facility], [place] [phone] [place] [phone] Isidoro Sargent RN Vegetation of heart valve (HCC) Social History Tobacco Use Types Packs/Day Years [...] Questionnaire-2 Score 0 11/15/2022 [facility] of Occupat ional Health - [...] on file documented as of this encounter Results * ECHO SARAH COMPLETE [...] contrast. The probe was inserted by the phys ther. There was minimal probe insertion difficulty. Moderate sedation was administered. Sedation was managed by the phys ther. Lidocaine administered during the study. 7 mg of midazolam administered during the study. 175 mcg of fentanyl administered during the study. There were no complications during the procedure. Prior Study Prior SARAH study available for comparison. Prior study date: 10/23/2022. Changes noted compared to prior study. 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 Tr Michael MD ECHO CUPID documented in this encounter Visit Diagnoses Diagnosis Vegetation of heart valve (HCC)- Primary Acute and subacute bacterial endocarditis Pre-op testing- Primary Preoperative examination, unspecified 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 documented in this encounter Care Teams Cafeteria Cook Relationship Specialty Start Date End Date Jean Joy MD PCP - OBGYN 12/27/07 Yvan Booth MD [address] [place] [phone] PCP - General 11/04/09 01/04/23 [place] [address] [place] [address] PCP - Attributed-[facility] EHP STL 09/10/19 06/28/23 Arlyn Hernandez, AMBROSE Post Acute Shingle CarrierPotato Grader 11/21/22 Doreen Aviles Care Coordination Specialist Care Management 11/30/22 01/18/23 documented as of this encounter
--- OUTSIDE RECORDS SUMMARY | 2024-03-19 20:35 | XMS_ITS | Encounter Summary ---
Author Organization [facility] Address [address] [place] [address] Care Team Providers Care Conservation Of Resources Commissioner Name Role Phone Jean Joy MD Unavailable [phone] Yvan Booth MD Primary Care Provider [phone] Jaden Thakur DO Unavailable [phone] Arlyn Hernandez RN Unavailable Doreen Aviles Unavailable Reason for Visit * Reason Onset Date Comments Transitions Of Care 12/06/2022 Encounter Details Date Type Department Care Team (Late st Contact Info) Description 12/06/2022 Patient Outreach [facility] - Care Coordination [address] [place] [phone] Doreen Aviles Transitions Of Care Social History [...] place to sleep or slept in a chcf (including now)? No 10/19/2022 Sex and Gender [...] encounter Miscellaneous Notes * Telephone Encounter - LawrenceNegin reyesDoreen - 12/06/2022 11:02 AM CDT Discharge from Hospital to Post Acute Care Facility Outreach for Care Coordination Discharge Level of Care Management Acute Rehab awaiting discharge Facility Information: Facility Contact name / number: [facility] ? Dx:??cva Will continue outreach to verify DC plan. Doreen Orourke 12/06/2022 11:02 AM documented in this encounter Plan of Treatment Not on file documented as of this encounter Visit Diagnoses Not on filedocumented in this encounter Care Teams Conservation Of Resources Commissioner Relationship Specialty Start Date End Date Jean Joy MD PCP - OBGYN 12/27/07 Yvan Booth MD [address] [place] [phone] PCP - General 11/04/09 01/04/23 Jaden Thakur DO [address] [place] [address] PCP - Attributed-[facility] EHP STL 09/10/19 06/28/23 Arlyn Hernandez, AMBROSE Post Acute Dean Of StudentsPersonnel Research Scientist 11/21/22 Doreen Aviles Care Coordination Specialist Care Management 11/30/22 01/18/23 documented as of this encounter
--- OUTSIDE RECORDS SUMMARY | 2024-03-19 20:35 | XMS_ITS | Encounter Summary ---
Author Organization [facility] Address [address] [facility] [place] [address] Care Team Providers Care Dental Ceramist Name Role Phone Jean Joy MD Unavailable [phone] Yvan Booth MD Primary Care Provider [phone] Jaden Thakur DO Unavailable [phone] Arlyn Hernandez RN Unavailable Doreen Aviles Unavailable [phone] Reason for Visit * Reason Onset Date Comments Follow-up 12/19/2022 Encounter Details Date Type Department Care Team (Late st Contact Info) Description 12/19/2022 Telephone [facility] - Nephrology [facility] [facility] [place] [address] Jojo Raza RN Follow-up Social History Tobacco Use Types Packs/Day Years [...] Recorded Patient Health Questionnaire-2 Score 0 11/15/2022 [facility] of Occupat ional Health - Occupational Stress [...] slept in a detention (including now)? No 10/19/2022 Sex and Gender [...] encounter Miscellaneous Notes * Telephone Encounter - Jojo Raza RN - 12/19/2022 3:59 PM CDT Received call from patient's , Salo to report redness, warmth, and tenderness at sight of retention sutures. He had previously been transferred to GI, Endo, and General Surgery with no information or assistance with follow up. Per notes, patient previously had PEG tube placed 11/01/[address] Metz (Endoscopy). Followed by gastropexy with retention sutures placed 11/10/[address] Novoa and Dr. Quiroz(General Surgery). PEG tube was removed at bedside by Dr. Anderson(Interventional Endoscopy) 12/08/22 and sutures were left in place. No follow ups to manage retention sutures were scheduled. Salo was notified to make an appt with GI for continuation of care. This matter was escalated Lanny Cali, transplant kidney digital strategy manager, to confirm who patient needs to see to manage or remove retention sutures. Confirmed with Salo that only the two suture sites remain in abdomen; patient entererd picture of abdomen available in media. Because of symptoms, this RN instructed patient to be transported to ED for further infection work-up. Patient does not think that ER visited is warranted at this time and has scheduled an urgent visit with PCP this upcoming Friday 12/22 for further evaluation to monitor site for increased symptoms including drainage from the site. Assured patient's that someone from [facility] should be in contact to schedule an urgent appt. documented in this encounter Plan of Treatment Not on file documented as of this encounter Visit Diagnoses Not on filedocumented in this encounter Care Teams Dental Ceramist Relationship Specialty Start Date End Date Jean Joy MD PCP - OBGYN 12/27/07 Yvan Booth MD [address] [place] [address] PCP - General 11/04/09 01/04/23 Jaden Thakur DO [address] [place] [address] PCP - Attributed-WellFirst EHP STL 09/10/19 06/28/23 Arlyn Hernandez, AMBROSE Post Acute R D EngineerNew Car Inspector 11/21/22 Doreen Aviles Care Coordination Specialist Care Management 11/30/22 01/18/23 documented as of this encounter
--- OUTSIDE RECORDS SUMMARY | 2024-03-19 20:35 | XMS_ITS | Encounter Summary ---
Author Organization [facility] Address [address] [place] [place] [address] Care Team Providers Care Bench Assembler Operator Name Role Phone Jean Joy MD Unavailable [phone] Yvan Booth MD Primary Care Provider [phone] Jaden Thakur DO Unavailable [phone] Arlyn Hernandez RN Unavailable [phone] Doreen Aviles Unavailable [phone] Reason for Visit * Reason Onset Date Comments Transitions Of Care 12/01/2022 Encounter Details Date Type Department Care Team (Late st Contact Info) Description 12/01/2022 Patient Outreach [facility] - Care Coordination [address] [place] [phone] Doreen Aviles Transitions Of Care Social History [...] Health Questionnaire-2 Score 0 11/15/2022 [facility] of Occupat ional Health - Occupational [...] in a nursing home (including now)? No 10/19/2022 Sex and [...] * Telephone Encounter - Doreen Orourke - 12/01/2022 10:12 AM CDT Discharge from Hospital to Post Acute Care Facility Outreach for Care Coordination Discharge Level of Care Management Acute Rehab awaiting discharge Facility Information: Facility Contact name / number: [facility] ? Dx:??cva ?? Will continue outreach to verify DC plan. Doreen Orourke 12/01/2022 10:12 AM documented in this encounter Plan of Treatment Not on file documented as of this encounter Visit Diagnoses Not on filedocumented in this encounter Care Teams Bench Assembler Operator Relationship Specialty Start Date End Date Jean Joy MD PCP - OBGYN 12/27/07 Yvan Booth MD [address] [place] [phone] PCP - General 11/04/09 01/04/23 Jaden Thakur DO [address] [place] [address] PCP - Attributed-[facility]First EHP STL 09/10/19 06/28/23 Arlyn Hernandez, AMBROSE Post Acute Haunted History Tour GuideCorsage Maker 11/21/22 Doreen Aviles Care Coordination Specialist Care Management 11/30/22 01/18/23 documented as of this encounter
--- OUTSIDE RECORDS SUMMARY | 2024-03-19 20:35 | XMS_ITS | Encounter Summary ---
Author Organization [facility] Address [address] [place] [address] Care Team Providers Care Helper Electrical Name Role Phone Jean Joy MD Unavailable [phone] Yvan Booth MD Primary Care Provider [phone] Jaden Thakur DO Unavailable [phone] Arlyn Hernandez RN Unavailable [phone] Doreen Aviles Unavailable Reason for Visit * Reason Onset Date Comments Transitional Care 12/15/2022 Encounter Details Date Type Department Care Team (Late st Contact Info) Description 12/15/2022 Transitional Care [facility] - Care Coordination [address] [place] [address] Arlyn Hernandez, RN Transitional Care [...] Recorded Patient Health Questionnaire-2 Score 0 11/15/2022 [facility] - Occupational Stress Questionnaire Answer Date [...] slept in a [facility] (including now)? No 10/19/2022 Sex and Gender [...] Telephone Encounter - Arlyn Hernandez RN - 12/15/2022 4:04 PM CDT LOR call with patients . Acute rehab dc 12/14, cva. Equipment reveived, all meds received butunable to review at this time. I had been asked to communicate GI f/u that was made for June. WhenI mentioned to he stated patient still has two sutures in and patient needs f/u re that. I reached out to one of the GI schedulers who gave me number to call and speak with nurse re this and f/u. I will f/u with next week. Patient to start at [facility] on Sunday. Has [facility] appt scheduled next week and also has PCP appt scheduled with Dr. Thakur in January. Denies any further questions or concerns. Physician to address items 1 through 4 below: 1. Please see Meds & Orders section for specific details or concern listed below: No concerns at this time 2. Orders/concerns: 3. Please enter dotphrase TCMPROVIDER 4. Please Close Encounter ---------Encounter Note This encounter was a(n) Passive engagement with the patient. Spoke with Patient is not eligible for Medicare Advantage medically tailored meals. Post Discharge Outreach from acute rehab Transition of Care Assessment PHQ Assessment Does not meet criteria for screening: Aphasia (2022 4:10 PM) PHQ2 TOTAL SCORE: 0 (02/08/2022 6:30 AM) Pt. declined depression screening (date): 11/02/22 (11/02/2022 9:28 AM) Patient Health Questionnaire-2 Score: 0 (11/15/2022 8:16 AM) Med Reconciliation Discharge Medication list was not reviewed and compared with Current Medications. Current Medications List Current Outpatient Medications Medication Sig ??? amitriptyline (Elavil) 50 MG tablet Take 2 (two) tablets by mouth at bedtime ??? Cetirizine HCl (ZYRTEC PO) Take 10 mg by mouth once daily ??? enoxaparin (Lovenox) 100 MG/ML injection Inject 100 (one hundred) mg subcutaneously every 12 hours ??? metoprolol tartrate IR (Lopressor) 25 MG tablet Take 1 (one) tablet by mouth 2 times daily ??? omeprazole (PriLOSEC) 20 MG capsule Take 20 mg by mouth daily before breakfast ??? triamcinolone acetonide (Kenalog) 0.1 % ointment Apply to affected area 2 times daily as needed ??? verapamil SR 24hr (Verelan) 120 MG capsule Take 1 (one) capsule by mouth at bedtime ??? Vitamin D3, cholecalciferol, 50 MCG (2000 UT) tablet Take 2,000 Units by mouth once daily ??? warfarin (Coumadin) 5 MG tablet Take 1 (one) tablet by mouth once daily Please prescribe warfarin based on pharmacy orders and bridge with enoxaparin; INR goal 2-3 Reasons: Blood Vessel Obstruction by Foreign Substance or Clot Readmission Risk Score N/A at 4:10 PM 12/15/2022. Arlyn Hernandez RN 12/15/2022 4:10 PM documented in this encounter Plan of Treatment Not on file documented as of this encounter Visit Diagnoses Not on filedocumented in this encounter Care Teams Helper Electrical Relationship Specialty Start Date End Date Jean Joy MD PCP - OBGYN 12/27/07 Yvan Booth MD [address] [place] [address] PCP - General 11/04/09 01/04/23 Jaden Thakur DO [address] [place] [address] [id number] PCP - Attributed-WellFirst EHP STL 09/10/19 06/28/23 Arlyn Hernandez, AMBROSE Post Acute Gauge MakerRectifier Operator 11/21/22 Doreen Aviles Care Coordination Specialist Care Management 11/30/22 01/18/23 documented as of this encounter
--- OUTSIDE RECORDS SUMMARY | 2024-03-19 20:35 | XMS_ITS | Encounter Summary ---
Author Organization [facility] Address [address] [place] [address] Care Team Providers Care Undercar Specialist Name Role Phone Jean Joy MD Unavailable [phone] Yvan Booth MD Primary Care Provider [phone] Jaden Thakur DO Unavailable [phone] Arlyn Hernandez RN Unavailable Doreen Aviles Unavailable Reason for Visit * Reason Onset Date Comments Transitions Of Care 12/11/2022 Encounter Details Date Type Department Care Team (Late st Contact Info) Description 12/11/2022 Patient Outreach [facility] - Care Coordination [address] [place] [phone] Doreen Aviles Transitions Of Care Social History [...] slept in a custodial (including now)? No 10/19/2022 Sex and Gender [...] * Telephone Encounter - Doreen Orourke - 12/11/2022 10:52 AM CDT Discharge from Hospital to Post Acute Care Facility Outreach for Care Coordination Discharge Level of Care Management Acute Rehab awaiting discharge Facility Information: Facility Contact name / number: [facility] ? Dx:??cva Will continue outreach to verify DC plan. Doreen Orourke 12/11/2022 10:52 AM documented in this encounter Plan of Treatment Not on file documented as of this encounter Visit Diagnoses Not on filedocumented in this encounter Care Teams Undercar Specialist Relationship Specialty Start Date End Date Jean Joy MD PCP - OBGYN 12/27/07 Yvan Booth MD [address] [place] [phone] PCP - General 11/04/09 01/04/23 Jaden Thakur DO [address] [place] [address] PCP - Attributed-WellFirst EHP STL 09/10/19 06/28/23 Arlyn Hernandez, AMBROSE Post Acute Broadcast JournalistRoof Fixer 11/21/22 Doreen Aviles Care Coordination Specialist Care Management 11/30/22 01/18/23 documented as of this encounter
--- OUTSIDE RECORDS SUMMARY | 2024-03-19 20:35 | XMS_ITS | Encounter Summary ---
Author Organization [facility] Address [address] [facility] [place] [address] Care Team Providers Care Plate Gauger Name Role Phone Jean Joy MD Unavailable [phone] Yvan Booth MD Primary Care Provider [phone] Jaden Thakur DO Unavailable [phone] Arlyn Hernandez RN Unavailable [phone] Doreen Aviles Unavailable Encounter Details Date Type Department Care Team (Latest Contact Info) Description 12/21/2022 10:25 AM CDT - 12/21/2022 11:59 PM CDT Hospital Encounter [facility] OP DRAW STATION [address] [place] [phone] Jazz Martin MD [address] [address] Discharge Disposition: Home or Self Care Social [...] 0 11/15/2022 [facility] Occupat ional [facility] - Occupational Stress Questionnaire Answer Date [...] Procedure Name Priority Date/Time Associated Diagnosis Comments PTT [facility] Routine 12/21/2022 11:07 AM CDT Pre-op testing PT-INR [facility] Routine 12/21/2022 11:07 AM CDT Pre-op testing CBC W AUTO DIFFERENTIAL Routine 12/21/2022 11:07 AM CDT Pre-op testing BASIC METABOLIC PANEL (CALCIUM TOTAL) Routine 12/21/2022 11:07 AM CDT Pre-op testing documented in this encounter Results * PTT [facility] (12/21/2022 11:07 AM CDT) APTT 26.9 23.0 - 38.4 Seconds 12/21/2022 11:46 AM CDT [facility] Comment:Suggested therapeuti c range for full dose I.V. unfractionated heparin therapy for venous thromboembolism is 71 to 109 seconds. Blood BLOOD SPECIMEN / Unknown Lab Venipuncture / Unknown 12/21/2022 11:07 AM CDT 12/21/2022 11:21 AM CDT Jazz Martin MD LAB - COAGULATION OR DERABLES Performing Organization Address [facility] Co de Phone Number [address] [address], [employer] [phone] * (ABNORMAL) PT-INR [facility] (12/21/2022 11:07 AM CDT) PT 18.7(H) 12.1 - 14.8 Seconds 12/21/2022 11:46 AM CDT [facility] INR 1.6 See Comment 12/21/2022 11:46 AM CDT [facility] Comment:The suggested therap eutic range for standard coumadin (warfarin) therapy is an INR of 2.0-3.0. For high-risk patients (Mechanical Mitral Valve Prosthesis, etc.), the suggested prophylactic therapeutic range is an INR of 2.5-3.5. Blood BLOOD SPECIMEN / Unknown Lab Venipuncture / Unknown 12/21/2022 11:07 AM CDT 12/21/2022 11:21 AM CDT Jzaz Martin MD LAB - COAGULATION OR DERABLES Performing Organization Address City/[facility]/ZIP Co de Phone Number [address] [address], [employer] [phone] * (ABNORMAL) CBC WITH DIFFERENTIAL (12/21/2022 11:07 AM [facility]) WBC 12.3(H) 3.5 - 10.5 10? 3 /uL 12/21/2022 11:31 AM [facility] RBC 4.98 3.80 - 5.20 10? 6 /uL 12/21/2022 11:31 AM [facility] Hemoglobin 14.4 12.0 - 15.6 g/dL 12/21/2022 11:31 AM [facility] Hematocrit 45.5(H) 35.0 - 45.0 % 12/21/2022 11:31 AM [facility] MCV 91.4 80.7 - 98.3 fL 12/21/2022 11:31 AM [facility] MCH 28.9 26.7 - 34.0 pg 12/21/2022 11:31 AM [facility] MCHC 31.6 30.8 - 35.9 g/dL 12/21/2022 11:31 AM [facility] RDW-SD 51.5(H) 36.0 - 50.0 fL 12/21/2022 11:31 AM [facility] RDW-CV 15.4(H) 11.2 - 14.8 % 12/21/2022 11:31 AM [facility] Platelet Count 351 150 - 400 10? 3 /uL 12/21/2022 11:31 AM [facility] MPV 10.8 9.4 - 12.9 fL 12/21/2022 11:31 AM [facility] nRBC Absolute 0.00 0 10? 3 /uL 12/21/2022 11:31 AM [facility] nRBC Auto 0.0 0 /100 WBC 12/21/2022 11:31 AM [facility] Neutrophils % 71.2(H) 35.0 - 70.0 % 12/21/2022 11:31 AM [facility] Lymphocytes % 19.3(L) 20.0 - 43.0 % 12/21/2022 11:31 AM [facility] Monocytes % 8.3 5.0 - 13.0 % 12/21/2022 11:31 AM [facility] Eosinophils % 0.5 0.0 - 6.0 % 12/21/2022 11:31 AM [facility] Basophil % 0.4 0.0 - 2.0 % 12/21/2022 11:31 AM [facility] Neutrophils Absolute 8.73(H) 1.60 - 7.00 10? 3 /uL 12/21/2022 11:31 AM [facility] Lymphocyte Absolute 2.37 1.10 - 3.90 10? 3 /uL 12/21/2022 11:31 AM [facility] Monocytes Absolute 1.02 0.26 - 1.07 10? 3 /uL 12/21/2022 11:31 AM [facility] Eosinophils Absolute 0.06 0.00 - 0.47 10? 3 /uL 12/21/2022 11:31 AM [facility] Basophils Absolute 0.05 0.00 - 0.08 10? 3 /uL 12/21/2022 11:31 AM [facility] Immature Granulocytes % 0.3 0.0 - 1.0 % 12/21/2022 11:31 AM [facility] Immature Granulocytes Absolute 0.04 12/21/2022 11:31 AM [facility] Blood BLOOD SPECIMEN / Unknown Lab Venipuncture / Unknown 12/21/2022 11:07 AM CDT 12/21/2022 11:21 AM CDT Jazz Martin MD LAB - HEMATOLOGY ORD ERABLES Performing Organization Address [facility]/State/ZIP Co de Phone Number [facility] [address] [place] [address], [facility] [phone] * (ABNORMAL) BASIC METABOLIC PANEL (CALCIUM TOTAL) (12/21/2022 11:07 AM CDT) BUN 10 7 - 26 mg/dL 12/21/2022 11:48 AM [facility] Creatinine 0.53(L) 0.56 - 0.96 mg/dL 12/21/2022 11:48 AM [facility] Sodium 140 136 - 145 mmol/L 12/21/2022 11:48 AM [facility] Potassium 3.7 3.5 - 4.5 mmol/L 12/21/2022 11:48 AM [facility] Chloride 105 98 - 107 mmol/L 12/21/2022 11:48 AM [facility] CO2 27 22 - 29 mmol/L 12/21/2022 11:48 AM [facility] Glucose 76 70 - 115 mg/dL 12/21/2022 11:48 AM [facility] Calcium 9.8 8.4 - 10.2 mg/dL 12/21/2022 11:48 AM [facility] Anion Gap 8 6 - 16 12/21/2022 11:48 AM [facility] BUN/Creatinine Ratio 19 7 - 23 12/21/2022 11:48 AM [facility] Osmolality Calculated 288 275 - 295 mOsm/kg 12/21/2022 11:48 AM [facility] eGFR by CKD-EPI >90 >=90 mL/min/1.7 3 m2 12/21/2022 11:48 AM [facility] Blood BLOOD SPECIMEN / Unknown Lab Venipuncture / Unknown 12/21/2022 11:07 AM CDT 12/21/2022 11:21 AM T Jazz Martin MD LAB [facility] Organization Address City/State/[facility] Co de Phone Number [facility] [address] [place] [address], [facility] [phone] documented in this encounter Visit Diagnoses Diagnosis Pre-op testing Preoperative examination, unspecified documented in this encounter Care Teams Plate Gauger Relationship Specialty Start Date End Date Jean Joy MD PCP - OBGYN 12/27/07 Yvan Booth MD [address] [place] [phone] PCP - General 11/04/09 01/04/23 Jaden Thakur DO [address] [place] [address] PCP - Attributed-WellFirst EHP STL 09/10/19 06/28/23 Arlyn Hernandez RN Post Acute Supervisor PastryFur Coat Sewer 11/21/22 Doreen Aviles Care Coordination Specialist Care Management 11/30/22 01/18/23 documented as of this encounter
--- OUTSIDE RECORDS SUMMARY | 2024-03-19 20:35 | XMS_ITS | Encounter Summary ---
Author Organization [facility] Address [address] [place] [address] Care Team Providers Care Anthropology And Archeology Instructor Name Role Phone Jean Joy MD Unavailable Yvan Booth MD Primary Care Provider [phone] Jaden Thakur DO Unavailable [phone] Arlyn Hernandez RN Unavailable Doreen Aviles Unavailable [phone] Encounter Details Date Type Department Care Team (Latest Contact Info) Description 12/26/2022 9:44 AM CDT - 12/26/2022 11:59 PM CDT Hospital Encounter [facility] LAB OP DRAW STATION [address] [place] [phone] Valdez Clay MD [facility] [address] Discharge Disposition: Home or Self Care Social [...] Recorded Patient Health Questionnaire-2 Score 0 11/15/2022 [facility] of Occupat ional Health - [...] place to sleep or slept in a [place] (including now)? No 10/19/2022 Sex and Gender [...] 3 times daily 12/14/2022 01/15/2023 HYDROcodone-acetamin ophen (Ilion) 5-325 MG tablet TAKE 1 TABLET BY [...] 12/14/2022 04/05/2023 Vitamin D3, cholecalciferol, 50 MCG (1999 UT) tablet Take 1 (one) tablet by [...] on filedocumented in this encounter Care Teams Anthropology And Archeology Instructor Relationship Specialty Start Date End Date Jean Joy MD PCP - OBGYN 12/27/07 Yvan Booth MD [address] [place] [address] PCP - General 11/04/09 01/04/23 Jaden Thakur DO [address] [place] [address] PCP - Attributed-WellFirst EHP STL 09/10/19 06/28/23 Arlyn Hernandez RN Post Acute Infant NannyContinuing Education Instructor 11/21/22 Doreen Aviles Care Coordination Specialist Care Management 11/30/22 01/18/23 documented as of this encounter
--- OUTSIDE RECORDS SUMMARY | 2024-03-19 20:35 | XMS_ITS | Encounter Summary ---
Author Organization [facility] Address [address] [facility] [place] [address] Care Team Providers Care Pump Installation And Servicer Name Role Phone Jean Joy MD Unavailable [phone] Yvan Booth MD Primary Care Provider [phone] Jaden Thakur DO Unavailable [phone] Arlyn Hernandez RN Unavailable Doreen Aviles Unavailable [phone] Reason for Visit * Reason Onset Date Comments Transitions Of Care 12/04/2022 Encounter Details Date Type Department Care Team (Late st Contact Info) Description 12/04/2022 Patient Outreach [facility] - Care Coordination [address] [place] [phone] Doreen Aviles Transitions Of Care Social History [...] Recorded Patient Health Questionnaire-2 Score 0 11/15/2022 [facility] of Occupat ional Health - Occupational Stress [...] slept in a retirement (including now)? No 10/19/2022 Sex and Gender [...] encounter Miscellaneous Notes * Telephone Encounter - HavenNeginDoreen - 12/04/2022 9:35 AM CDT Discharge from Hospital to Post Acute Care Facility Outreach for Care Coordination Discharge Level of Care Management Acute Rehab awaiting discharge Facility Information: Facility Contact name / number: [facility] ? Dx:??cva Will continue outreach to verify DC plan. Doreen Orourke 12/04/2022 9:35 AM documented in this encounter Plan of Treatment Not on file documented as of this encounter Visit Diagnoses Not on filedocumented in this encounter Care Teams Pump Installation And Servicer Relationship Specialty Start Date End Date Jean Joy MD PCP - OBGYN 12/27/07 Yvan Booth MD [address] [place] [phone] PCP - General 11/04/09 01/04/23 Jaden Thakur DO [address] [place] [address] PCP - Attributed-WellFirst EHP STL 09/10/19 06/28/23 Arlyn Hernandez, AMBROSE Post Acute Break Off WorkerWeigh Machine Operator 11/21/22 Doreen Aviles Care Coordination Specialist Care Management 11/30/22 01/18/23 documented as of this encounter
--- OUTSIDE RECORDS SUMMARY | 2024-03-19 20:35 | XMS_ITS | Encounter Summary ---
Author Organization [facility] Address [address] [facility] [address] Care Team Providers Care Sack Sewer Name Role Phone Jean Joy MD Unavailable [phone] Yvan Booth MD Primary Care Provider [phone] Jaden Thakur DO Unavailable Arlyn Hernandez RN Unavailable [phone] Doreen Aviles Unavailable [phone] Reason for Visit * Reason Onset Date Comments Follow-up 12/25/2022 Encounter Details Date Type Department Care Team (Late st Contact Info) Description 12/25/2022 Telephone [facility] - Neurosurgery [facility] [facility] [place] [place] [phone] Lynette Jacques Follow-up Social History Tobacco Use Types Packs/Day [...] Recorded Patient Health Questionnaire-2 Score 0 11/15/2022 [facility] of Occupat ional Health - [...] slept in a [facility] (including now)? No 10/19/2022 Sex and Gender [...] encounter Miscellaneous Notes * Telephone Encounter - Lynette Jacques - 12/25/2022 12:29 PM CDT Left PCP office a message that Cardiology suggest patient be bridged with Lovenox while holding coumadin for 5 days and hold Lovenox 24 hours prior to surgery. documented in this encounter Plan of Treatment Not on file documented as of this encounter Visit Diagnoses Not on filedocumented in this encounter Care Teams Sack Sewer Relationship Specialty Start Date End Date Jean Joy MD PCP - OBGYN 12/27/07 Yvan Booth MD [address] [place] [phone] PCP - General 11/04/09 01/04/23 Jaden Thakur DO [address] [place] [address] PCP - Attributed-WellFirst EHP STL 09/10/19 06/28/23 Arlyn Hernandez, AMBROSE Post Acute Industrial RendererCommunity Service Technician 11/21/22 Doreen Aviles Care Coordination Specialist Care Management 11/30/22 01/18/23 documented as of this encounter
--- OUTSIDE RECORDS SUMMARY | 2024-03-19 20:35 | XMS_ITS | Encounter Summary ---
Author Organization [facility] Address [address] [facility] [place] [address] Care Team Providers Care Bridal Consultant Name Role Phone Jean Joy MD Unavailable Yvan Booth MD Primary Care Provider [phone] Jaden Thakur DO Unavailable Arlyn Hernandez RN Unavailable Doreen Aviles Unavailable Reason for Referral * Radiology Services (Urgent) - Closed Specialty Diagnoses / Procedures Referred By Jimena t Referred To Contact CT Scan Diagnoses Acquired skull defect Procedures CT HEAD WO CONTRAST Jazz Martin MD [address] [place] [address] [place] [address] [facility] [address] [place] [address] Referral ID Status Reason Start Date Expiration Date Visits Re quested Visits Authorized [id number] Closed 11/29/2022 03/29/2023 1 1 Encounter Details Date Type Department Care Team (Late st Contact Info) Description 12/14/2022 11:00 AM CDT Office Visit [facility] - Neurosurgery [address] [place] [address], [place] [phone] Jazz Martin MD [address] [place] [address] Acquired skull defect (Primary Dx) Social History [...] Recorded Patient Health Questionnaire-2 Score 0 11/15/2022 [facility] of Occupat ional Health - Occupational Stress [...] as of this encounter Progress Notes * Jazz Martin MD - 01/07/2023 11:53 PM CDT Appointment rescheduled to next week, encounter in error documented in this encounter Plan of Treatment [...] acute intracranial hemorrhage. > Dictated by Alejandro Clifofrd MD (Alteration Worker) Jasper Ornelas MD have personally reviewed and interpreted this examination/study. > Interpreting Provider: Jasper Sifuentes MD on 12/21/2022 12:02 PM Narrative 12/21/2022 12:02 PM CDT PROCEDURE: ??CT HEAD WO CONTRAST, DATE/TIME OF EXAM: ??12/21/2022 8:24 AM, LOCATION ??[facility] INDICATION: M95.2: Acquired skull defect EXAMINATION: [...] CT of the head from 11/19/2022 [facility]. CT of the head from 11/05/2022. 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 CT of the head from 11/05/2022. [...] the right lateral ventricle and slight parieto-occipital lovl-fv-[id number] midline shift of approximately 5 mm at [...] hemorrhage. > Dictated by Alejandro Clifford MD (Alteration Worker) IJasper MD have personally reviewed and interpretedthis examination/study. > Interpreting Provider: Jasper Sifuentes MD on 12/21/2022 12:02PM Jazz Martin MD CT ORDERABLES documented in this encounter Visit Diagnoses Diagnosis Acquired skull defect- Primary Other specified acquired deformity of head Acquired skull defect Other specified acquired deformity of head documented in this encounter Care Teams Bridal Consultant Relationship Specialty Start Date End Date Jean Joy MD PCP - OBGYN 12/27/07 Yvan Booth MD [address] [place] [phone] PCP - General 11/04/09 01/04/23 Jaden Thakur DO [address] [place] [address] PCP - Attributed-WellFirst EHP STL 09/10/19 06/28/23 Arlyn Hernandez, RN Post Acute Bus OperatorFreight Sorter 11/21/22 Doreen Aviles Care Coordination Specialist Care Management 11/30/22 01/18/23 documented as of this encounter
--- OUTSIDE RECORDS SUMMARY | 2024-03-19 20:35 | XMS_ITS | Encounter Summary ---
Author Organization [facility] Address [address] [place] [address] Care Team Providers Care Manager Of Marketing Name Role Phone Jean Joy MD Unavailable [phone] Yvan Booth MD Primary Care Provider Jaden Thakur DO Unavailable [phone] Arlyn Hernandez RN Unavailable [phone] Doreen Aviles Unavailable Encounter Details Date Type Department Care Team (Late st Contact Info) Description 12/13/2022 Patient Outreach [facility] ENDOSCOPY [address] [place] [address] Tia Mcduffie RN Social History Tobacco Use Types Packs/Day Years [...] 10/19/2022 Overall Financial Resource Strain (CARDIA) Corinna shoemaker Date Recorded How hard is it for you to pa y for the very basics like food, housing, medical care, and heating? Not very hard 10/19/2022 PHQ-2 Answer Date Recorded Patient Health Questionnaire-2 Score 0 11/15/2022 [facility] of Occupat ional Health - Occupational [...] place to sleep or slept in a care home (including now)? No 10/19/2022 Sex and [...] encounter Miscellaneous Notes * Telephone Encounter - Tia Mcduffie RN - 12/13/2022 12:14 PM CDT Patient is being discharged from rehab to go home today. Case management wanted a follow up contact for patient for her PEG tube as an outpatient Patient had a 24Fr externally removable PEG tube placed by Dr. Khanh Metz on 2022 Advanced to a full liquid diet today so they want patient to establish care with GI for possible low profile in the future vs removal as she continues to recover from her stroke. Case management called GI clinic at [phone] who inappropriately forwarded the call to endoscopy. Patient will need a follow up appt with Gastroenterology made. Message forwarded to appropriate staff to make GI clinic visit documented in this encounter Plan of Treatment Not on file documented as of this encounter Visit Diagnoses Not on filedocumented in this encounter Care Teams Manager Of Marketing Relationship Specialty Start Date End Date Jean Joy MD PCP - OBGYN 12/27/07 vYan Booth MD [address] [place] [phone] PCP - General 11/04/09 01/04/23 Jaden Thakur DO [address] [place] [address] PCP - Attributed-[facility] EHP STL 09/10/19 06/28/23 Arlyn Hernandez, AMBROSE Post Acute Medical Referral CoordinatorChiropractic Teacher 11/21/22 Doreen Aviles Care Coordination Specialist Care Management 11/30/22 01/18/23 documented as of this encounter
--- OUTSIDE RECORDS SUMMARY | 2024-03-19 20:35 | XMS_ITS | Encounter Summary ---
Author Organization [facility] Address [address] [place] [address] Care Team Providers Care Mason Liner Name Role Phone Jean Joy MD Unavailable Yvan Booth MD Primary Care Provider Jaden Thakur DO Unavailable Arlyn Hernandez RN Unavailable Doreen Aviles Unavailable [phone] Encounter Details Date Type Department Care Team (Latest Contact Info) Description 12/26/2022 8:30 AM CDT - 12/26/2022 9:34 AM CDT Hospital Encounter [facility] PAT [address] [place] [phone] Jazz Martin MD [address] [facility] 2L [place] [address] Neurosurgery Discharge Disposition: Home or Self Care Anesthesia Record Procedure Summary Procedure Name Responsible Anesthesiologist Anesthesia Start Time Anesthesia Stop Time right cranioplasty, replacement of wilton bone (Right: Head) Ambrocio Leal II, MD [...] out of Room 1452 An Stop Meds * Agents No agents on file. * Blood No blood administrations on file. [...] CO2 Monitor 01/10/23 1214 by Lurdes Malave APRN-ALLIED HEALTH TEACHER 01/10/23 1437 by Lurdes Malave APRN-CRNA Peripheral IV Date: 01/10/23; Time : 1248; Orientation: Right; Placed By: Ambrocio Leal II, MD; Tolerance: General Anesthesia 01/10/23 1248 by Lurdes Malave APRN-ALLIED HEALTH TEACHER 01/11/23 1434 by Nabeel Cristina RN Procedural Site (Incision) 01/10/23; 1402; Right; Head; dressing: acrla, bacitracin, telfa, medipore tape; 01/11/23; 2227 01/10/23 1402 by Zakiya Prabhakar RN 01/11/232226 by Elicia, Auto Release documented in this encounter Social [...] Questionnaire-2 Score 0 11/15/2022 [facility] [place] of Occupat ional Health - Occupational Stress [...] Sign Reading Time Taken Comments Blood Pressure 117/60 12/26/2022 8:48 AM CDT Pulse 75 12/26/2022 8:48 AM CDT Temperature 36.6 ??C (97.8 ??F) 12/26/2022 8:48 AM CD T Respiratory Rate 16 12/26/2022 8:48 AM CDT Oxygen Saturation 100% 12/26/2022 8:48 AM CDT Inhaled Oxygen Concentration - - Weight 99.8 kg (220 lb) 12/26/2022 8:48 AM CDT Height 162.6 cm (5' 4 ) 12/26/2022 8:48 AM CDT Body Mass Index 37.76 12/26/2022 8:48 AM CDT documented in this encounter Functional [...] 3 times daily 12/14/2022 01/15/2023 HYDROcodone-acetamin ophen ([place]) 5-325 MG tablet TAKE 1 TABLET BY [...] Procedure Name Priority Date/Time Associated Diagnosis Comments TYPE + SCREEN PANEL STAT 12/26/2022 1 1:56 AM CDT Pre-op evaluation documented in this encounter Results * TYPE + SCREEN PANEL (12/26/2022 11:56 AM CDT) Antibody Screen NEG 1:26 PM CDT [facility] ABO Rh B POS 12/26/2022 1:26 PM CDT [facility] Blood Bank BLOOD SPECIMEN / Unknown Lab Venipuncture / Unknown 12/26/2022 11:56 AM CDT 12/26/2022 12:13 PM CDT Nutressa A Torres REGULATORY LAW SPECIALIST-INDEPENDENT SALES REPRESENTATIVE LAB - BLOOD B ANK ORDERABLES [facility] [address] [place] [address], [facility] [phone] documented in this encounter Visit Diagnoses Diagnosis Pre-op evaluation- Primary Preoperative examination, unspecified documented in this encounter Care Teams Mason Liner Relationship Specialty Start Date End Date Jean Joy MD PCP - OBGYN 12/27/07 Yvan Booth MD [address] [place] [address] PCP - General 11/04/09 01/04/23 Jaden Thakur DO [address] [place] [address] PCP - Attributed-[facility] EHP STL 09/10/19 06/28/23 Arlyn Hernandez, AMBROSE Post Acute TraderAdobe Architect 11/21/22 Doreen Aviles Care Coordination Specialist Care Management 11/30/22 01/18/23 documented as of this encounter
--- OUTSIDE RECORDS SUMMARY | 2024-03-19 20:35 | XMS_ITS | Encounter Summary ---
Author Organization [facility] Address [address] [place] [address] Care Team Providers Care Patient Liaison Name Role Phone Jean Joy MD Unavailable Yvan Booth MD Primary Care Provider [phone] Jaden Thakur DO Unavailable Arlyn Hernandez RN Unavailable [phone] Reason for Referral * Radiology Services (Routine) - Closed Specialty Diagnoses / Procedures Referred By Jimena muller Referred To Contact Vascular Lab Diagnoses Iliac artery occlusion, right (HCC) S/P peripheral artery angioplasty Procedures VAS RIGHT ARTERIAL DUPLEX Valdez Huerta MD [address] [place] [address] 2L [place] [address] Referral ID Status Reason Start Date Expiration Date Visits Re quested Visits Authorized [id number] Closed 11/21/2022 11/21/2023 1 1 Reason for Visit * Reason Onset Date Comments Follow-up 11/21/2022 Encounter Details Date Type Department Care Team (Late st Contact Info) Description 11/21/2022 Telephone [facility] - Vascular Surgery [address] [place] [address], [place] [phone] Valdez Clay MD [address] [place] [address] 2L [place] [address] Follow-up Social History Tobacco Use Types Packs/Day [...] encounter Miscellaneous Notes * Telephone Encounter - Lacho Hamilton RN - 11/21/2022 4:32 PM CDT Call back made to Zakiya sales advisory manager who is inquiring on Consuelo's follow-up plan. Consuelo should follow-up with right lower extremity arterial duplex and arterial ankle arm index 4 weeks from discharge and clinic appointment after with Dr. Clay. No answer. Left a brief message with this information and the nurse line. 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
--- OUTSIDE RECORDS SUMMARY | 2024-03-19 20:35 | XMS_ITS | Encounter Summary ---
Author Organization [facility] Address [address] [facility] [place] [address] Care Team Providers Care Bladder Blower Name Role Phone Jean Joy MD Unavailable [phone] Yvan Booth MD Primary Care Provider [phone] Jaden Thakur DO Unavailable [phone] Arlyn Hernandez RN Unavailable Doreen Aviles Unavailable Reason for Visit * Reason Onset Date Comments Transitions Of Care 12/15/2022 Encounter Details Date Type Department Care Team (Late st Contact Info) Description 12/15/2022 Patient Outreach [facility] Medical [facility] - Care Coordination [address] [place] [phone] Doreen Aviles Transitions Of Care Social History [...] Recorded Patient Health Questionnaire-2 Score 0 11/15/2022 [facility] of Occupat ional Health - Occupational [...] * Telephone Encounter - Doreen Orourke - 12/15/2022 8:18 AM CDT Discharge to Home from Post Acute Facility Confirmed that pt was discharged to home from facility on 12/14/22 Level of Care Management Medical Home per discretion Home Health? No Post discharge appointment with PCP is scheduled: No Doreen Orourke 12/15/2022 8:18 AM documented in this encounter Plan of Treatment Not on file documented as of this encounter Visit Diagnoses Not on filedocumented in this encounter Care Teams Bladder Blower Relationship Specialty Start Date End Date Jean Joy MD PCP - OBGYN 12/27/07 Yvan Booth MD [address] [place] [address] PCP - General 11/04/09 01/04/23 Jaden Thakur DO [address] [place] [id number] PCP - Attributed-[facility] EHP STL 09/10/19 06/28/23 Arlyn Hernandez, RN Post Acute Maintenance JourneymanCollege Professor 11/21/22 Doreen Aviles Care Coordination Specialist Care Management 11/30/22 01/18/23 documented as of this encounter
--- OUTSIDE RECORDS SUMMARY | 2024-03-19 20:35 | XMS_ITS | Encounter Summary ---
Author Organization [facility] Address [address] [facility] [place] [address] Care Team Providers Care Rug Sample Beveler Name Role Phone Jean Joy MD Unavailable [phone] Yvan Booth MD Primary Care Provider [phone] Jaden Thakur DO Unavailable [phone] Arlyn Hernandez RN Unavailable Doreen Aviles Unavailable [phone] Jaden Thakur DO Primary Care Provider + Reason for Visit * Reason Onset Date Comments Follow-up 12/26/2022 Encounter Details Date Type Department Care Team (Late st Contact Info) Description 12/26/2022 Telephone [facility] - Neurosurgery [address] [place] [address] [place] [phone] Lynette Jacques Follow-up Social History Tobacco Use [...] Recorded Patient Health Questionnaire-2 Score 0 11/15/2022 [facility] - Occupational Stress Questionnaire Answer [...] slept in a penitentiary (including now)? No 10/19/2022 Sex and Gender [...] * Telephone Encounter - Lynette Jacques - 12/26/2022 3:31 PM CDT Spoke with Dr. Thakur nurse on bridging patient with Lovenox for 5 days prior to surgery and then holding Lovenox 24 hours prior to surgery. PCP agrees to manage. documented in this encounter Plan of Treatment Not on file documented as of this encounter Visit Diagnoses Not on filedocumented in this encounter Care Teams Rug Sample Beveler Relationship Specialty Start Date End Date Jean Joy MD PCP - OBGYN 12/27/07 Yvan Booth MD [address] [place] [address] PCP - General 11/04/09 01/04/23 Jaden Thakur DO [address] [place] [address] PCP - Attributed-[facility] EHP STL 09/10/19 06/28/23 Jaden Thakur DO [address] [place] [address] PCP - General Family Medicine Geriatric Medicine 01/05/23 Arlyn Hernandez, AMBROSE Post Acute Salvage SupervisorSpa Consultant 11/21/22 Doreen Aviles Care Coordination Specialist Care Management 11/30/22 01/18/23 documented as of this encounter
--- OUTSIDE RECORDS SUMMARY | 2024-03-19 20:35 | XMS_ITS | Encounter Summary ---
Author Organization [facility] Address [address] [place] [address] Care Team Providers Care Test Fixture Assembler Name Role Phone Jean Joy MD Unavailable [phone] Yvan Booth MD Primary Care Provider [phone] Jaden Thakur DO Unavailable [phone] Arlyn Hernandez RN Unavailable [phone] Doreen Aviles Unavailable [phone] Encounter Details Date Type Department Care Team (Latest Contact Info) Description 12/26/2022 Travel Social History Tobacco Use Types Packs/Day [...] Recorded Patient Health Questionnaire-2 Score 0 11/15/2022 [facility] of Occupat ional Health - Occupational Stress [...] on filedocumented in this encounter Care Teams Test Fixture Assembler Relationship Specialty Start Date End Date Jean Joy MD PCP - OBGYN 12/27/07 Yvan Booth MD [address] [place] [address] PCP - General 11/04/09 01/04/23 Jaden Thakur DO [address] [place] [address] PCP - Attributed-[facility] EHP STL 09/10/19 06/28/23 Arlyn Hernandez, AMBROSE Post Acute Electrician Helper PowerhouseSeal Skinner 11/21/22 Doreen Aviles Care Coordination Specialist Care Management 11/30/22 01/18/23 documented as of this encounter
--- OUTSIDE RECORDS SUMMARY | 2024-03-19 20:35 | XMS_ITS | Encounter Summary ---
Author Organization [facility] Address [address] [place] [address] Care Team Providers Care Commercial Energy Auditor Name Role Phone Jean Joy MD Unavailable Yvan Booth MD Primary Care Provider [phone] Jaden Thakur DO Unavailable [phone] Arlyn Hernandez RN Unavailable Doreen Aviles Unavailable Reason for Referral * Radiology Services (Routine) - Closed Specialty Diagnoses / Procedures Referred By Contac t Referred To Contact Vascular Lab Diagnoses Iliac artery occlusion, right (HCC) S/P peripheral artery angioplasty Procedures VAS RIGHT ARTERIAL DUPLEX Valdez Huerta MD [address]L [place] [address] Referral ID Status Reason Start Date Expiration Date Visits Re quested Visits Authorized [id number] Closed 11/21/2022 11/21/2023 1 1 Reason for Visit * Radiology Services (Routine) - Closed Specialty Diagnoses / Procedures Referred By Contac t Referred To Contact Vascular Lab Diagnoses Iliac artery occlusion, right (HCC) S/P peripheral artery angioplasty Procedures VAS RIGHT ARTERIAL DUPLEX Valdez Huerta MD [address] 2L [place] [address] Referral ID Status Reason Start Date Expiration Date Visits Re quested Visits Authorized [id number] Closed 11/21/2022 11/21/2023 1 1 Encounter Details Date Type Department Care Team (Latest Contact Info) Description 12/26/2022 9:35 AM CDT - 12/26/2022 9:36 AM CDT Hospital Encounter [facility] VASCULAR US [address] [place] [phone] Valdez Clya MD [address] [facility] 2L [place] [address] Discharge Disposition: Home or Self Care Social [...] Recorded Patient Health Questionnaire-2 Score 0 11/15/2022 [facility] [place] of Occupat ional Health - Occupational Stress [...] 3 times daily 12/14/2022 01/15/2023 HYDROcodone-acetamin ophen ([place]) 5-325 MG tablet TAKE 1 TABLET BY [...] Name Priority Date/Time Associated Diagnosis Comments VAS RIGHT ARTERIAL DUPLEX LE Routine 12/26/2022 11:21 AM CDT Iliac artery occlusion, right (HCC) S/P peripheral artery angioplasty documented in this encounter Results * VAS RIGHT ARTERIAL [...] status documented in this encounter Care Teams Commercial Energy Auditor Relationship Specialty Start Date End Date Jean Joy MD PCP - OBGYN 12/27/07 Yvan Booth MD [address] [place] [address] PCP - General 11/04/09 01/04/23 Jaden Thakur DO [address] [place] [address] PCP - Attributed-[facility] EHP STL 09/10/19 06/28/23 Arlyn Hernandez, AMBROSE Post Acute Special Needs BabysitterNewspaper Delivery Driver 11/21/22 Doreen Aviles Care Coordination Specialist Care Management 11/30/22 01/18/23 documented as of this encounter
--- OUTSIDE RECORDS SUMMARY | 2024-03-19 20:35 | XMS_ITS | Encounter Summary ---
Author Organization [facility] Address [address] [facility] [place] [address] Care Team Providers Care Black Top Machine Operator Name Role Phone Jean Joy MD Unavailable [phone] Yvan Booth MD Primary Care Provider [phone] Jaden Thakur DO Unavailable [phone] Arlyn Hernandez RN Unavailable Doreen Aviles Unavailable [phone] Reason for Visit * Reason Onset Date Comments Transitions Of Care 12/26/2022 Encounter Details Date Type Department Care Team (Late st Contact Info) Description 12/26/2022 Patient Outreach [facility] Medical [facility] - Care Coordination [address] [place] [phone] Doreen Aviles Transitions Of Care Social History [...] Recorded Patient Health Questionnaire-2 Score 0 11/15/2022 [facility] of Occupat ional Health [...] place to sleep or slept in a fdc (including now)? No 10/19/2022 Sex and Gender [...] * Telephone Encounter - Doreen Orourke - 12/26/2022 1:41 PM CDT Pt was in appt, requested call back. documented in this encounter Plan of Treatment Not on file documented as of this encounter Visit Diagnoses Not on filedocumented in this encounter Care Teams Black Top Machine Operator Relationship Specialty Start Date End Date Jean Joy MD PCP - OBGYN 12/27/07 Yvan Booth MD [address] [place] [address] PCP - General 11/04/09 01/04/23 Jaden Thakur DO [address] [place] [address] PCP - Attributed-[facility] EHP STL 09/10/19 06/28/23 Arlyn Hernandez, AMBROSE Post Acute Mine Production EngineerMaterial Combiner 11/21/22 Doreen Aviles Care Coordination Specialist Care Management 11/30/22 01/18/23 documented as of this encounter
--- OUTSIDE RECORDS SUMMARY | 2024-03-19 20:35 | XMS_ITS | Encounter Summary ---
Author Organization [facility] Address [address] [facility] [place] [address] Care Team Providers Care Tank Cleaner Name Role Phone Jean Joy MD Unavailable [phone] Yvan Booth MD Primary Care Provider [phone] Jaden Thakur DO Unavailable Arlyn Hernandez RN Unavailable [phone] Reason for Referral * Home Health Care (Routine) - Closed Specialty Diagnoses / Procedures Referred By Jimena muller Referred To Contact Home Health Services Diagnoses Cerebrovascular accident (CVA), unspecified mechanism (HCC) Hypertension, unspecified type Yamileth Frias MD [address] [place] [address] [facility] Scheduling [address] [place] [address] Referral ID Status Reason Start Date Expiration Date V isits Requested Visits Authorized [id number] Closed Specialty Services Required 11/28/2022 11/28/[phone] Encounter Details Date Type Department Care Team (Late st Contact Info) Description 11/28/2022 Orders Only [facility] at Home Scheduling [address] [place] [address] Yamileth Frias MD [address] [place] [address] Cerebrovascular accident (CVA), unspecified mechanism (HCC) ; Hypertension, unspecified type Social History Tobacco Use Types Packs/Day Years [...] Recorded Patient Health Questionnaire-2 Score 0 11/15/2022 [facility] of Occupat ional Health - Occupational [...] Diagnoses Orde r Schedule AMB REFERRAL TO HOME HEALTH CARE Outpatient Referral Routine Cerebrovascular accident (CVA), unspecified mechanism (HCC) Hypertension, unspecified type Ordered: 11/28/2022 documented as of this encounter Visit Diagnoses Diagnosis Cerebrovascular accident (CVA), unspecified mechanism (HCC)- Primary Hypertension, unspecified type documented in this encounter Care Teams Tank Cleaner Relationship Specialty Start Date End Date Jean Joy MD PCP - OBGYN 12/27/07 Yvan Booth MD [address] [place] [address] PCP - General 11/04/09 01/04/23 Jaden Thakur DO [address] [place] [address] PCP - Attributed-[facility] EHP STL 09/10/19 06/28/23 Arlyn Hernandez, AMBROSE Post Acute Men'S Swim CoachSsis Ssrs Developer 11/21/22 documented as of this encounter
--- OUTSIDE RECORDS SUMMARY | 2024-03-19 20:35 | XMS_ITS | Encounter Summary ---
Author Organization [facility] Address [address] [place] [address] Care Team Providers Care Filler And Trimmer Name Role Phone Jean Joy MD Unavailable [phone] Yvan Booth MD Primary Care Provider [phone] Jaden Thakur DO Unavailable [phone] Arlyn Hernandez RN Unavailable [phone] Doreen Aviles Unavailable [phone] Encounter Details Date Type Department Care Team (Latest Contact Info) Description 12/21/2022 Travel Social History Tobacco Use Types Packs/Day [...] Recorded Patient Health Questionnaire-2 Score 0 11/15/2022 [facility] [place] of Occupat ional Health - Occupational Stress [...] slept in a fpc (including now)? No 10/19/2022 Sex and Gender [...] on filedocumented in this encounter Care Teams Filler And Trimmer Relationship Specialty Start Date End Date Jean Joy MD PCP - OBGYN 12/27/07 Yvan Booth MD [address] [place] [address] PCP - General 11/04/09 01/04/23 Jaden Thakur DO [address] [place] [address] PCP - Attributed-[facility] EHP STL 09/10/19 06/28/23 Arlyn Hernandez, AMBROSE Post Acute Metal HardenerAsp Net Mvc Developer 11/21/22 Doreen Aviles Care Coordination Specialist Care Management 11/30/22 01/18/23 documented as of this encounter
--- OUTSIDE RECORDS SUMMARY | 2024-03-19 20:35 | XMS_ITS | Encounter Summary ---
Author Organization [facility] Address [address] [place] [address] Care Team Providers Care Simulation Analyst Name Role Phone Jean Joy MD Unavailable [phone] Yvan Booth MD Primary Care Provider [phone] Jaden Thakur DO Unavailable [phone] Arlyn Hernandez RN Unavailable [phone] Reason for Visit * Reason Onset Date Comments Transitions Of Care 11/24/2022 Encounter Details Date Type Department Care Team (Late st Contact Info) Description 11/24/2022 Patient Outreach [facility] Medical [facility] - Care Coordination [address] [place] [phone] Doreen Aviles Transitions Of Care Social History [...] Recorded Patient Health Questionnaire-2 Score 0 11/15/2022 [facility] [place] of Occupat ional Health - Occupational Stress [...] encounter Miscellaneous Notes * Telephone Encounter - MckenzieDoreen reyes - 11/24/2022 9:52 AM CDT Discharge from Hospital to Post Acute Care Facility Outreach for Care Coordination Discharge Level of Care Management Acute Rehab awaiting discharge Facility Information: Facility Contact name / number: [facility] ? Dx: cva Will continue outreach to verify DC plan. Doreen Orourke 11/24/2022 9:52 AM documented in this encounter Plan of Treatment Not on file documented as of this encounter Visit Diagnoses Not on filedocumented in this encounter Care Teams Simulation Analyst Relationship Specialty Start Date End Date Jean Joy MD PCP - OBGYN 12/27/07 Yvan Booth MD [address] [place] [phone] PCP - General 11/04/09 01/04/23 Jaden Thakur DO [address] [place] [address] PCP - Attributed-[facility] EHP STL 09/10/19 06/28/23 Arlyn Hernandez, AMBROSE Post Acute Supervisor Shuttle VeneeringInspector Machine Cut Glass 11/21/22 documented as of this encounter
--- OUTSIDE RECORDS SUMMARY | 2024-03-19 20:35 | XMS_ITS | Encounter Summary ---
Author Organization [facility] Address [address] [facility] [place] [address] Care Team Providers Care Cold Meat Cook Name Role Phone Jean Joy MD Unavailable [phone] Yvan Booth MD Primary Care Provider [phone] Jaden Thakur DO Unavailable [phone] Arlyn Hernandez RN Unavailable [phone] Doreen Aviles Unavailable [phone] Encounter Details Date Type Department Care Team (Latest Contact Info) Description 12/15/2022 Travel Social History Tobacco Use Types Packs/Day [...] Recorded Patient Health Questionnaire-2 Score 0 11/15/2022 [facility] [place] of Occupat ional Health - Occupational Stress [...] on filedocumented in this encounter Care Teams Cold Meat Cook Relationship Specialty Start Date End Date Jean Joy MD PCP - OBGYN 12/27/07 Yvan Booth MD [address] [place] [phone] PCP - General 11/04/09 01/04/23 Jaden Thakur DO [address] [place] [address] PCP - Attributed-[facility] EHP STL 09/10/19 06/28/23 Arlyn Hernandez, AMBROSE Post Acute Transformation SpecialistQuality Assurance Lab Technician 11/21/22 Doreen Aviles Care Coordination Specialist Care Management 11/30/22 01/18/23 documented as of this encounter
--- OUTSIDE RECORDS SUMMARY | 2024-03-19 20:35 | XMS_ITS | Encounter Summary ---
Author Organization [facility] Address [address] [facility] [place] [address] Care Team Providers Care Glass Lathe Operator Name Role Phone Jean Joy MD Unavailable [phone] Yvan Booth MD Primary Care Provider [phone] Jaden Thakur DO Unavailable [phone] Arlyn Hernandez RN Unavailable [phone] Reason for Visit * Reason Onset Date Comments Transitions Of Care 11/29/2022 Encounter Details Date Type Department Care Team (Late st Contact Info) Description 11/29/2022 Patient Outreach [facility] Medical [facility] - Care Coordination [address] [place] [phone] Doreen Aviles Transitions Of Care Social History [...] Recorded Patient Health Questionnaire-2 Score 0 11/15/2022 [facility] [place] of Occupat ional Health - Occupational Stress [...] * Telephone Encounter - Doreen Orourke - 11/29/2022 10:58 AM CDT Discharge from Hospital to Post Acute Care Facility Outreach for Care Coordination Discharge Level of Care Management Acute Rehab awaiting discharge Facility Information: Facility Contact name / number: [facility] ? Dx:??cva Will continue outreach to verify DC plan. Doreen Sullivanan 11/29/2022 10:58 AM documented in this encounter Plan of Treatment Not on file documented as of this encounter Visit Diagnoses Not on filedocumented in this encounter Care Teams Glass Lathe Operator Relationship Specialty Start Date End Date Jean Joy MD PCP - OBGYN 12/27/07 Yvan Booth MD [address] [place] [phone] PCP - General 11/04/09 01/04/23 Jaden Thakur DO [address] [place] [id number] PCP - Attributed-[facility]First EHP STL 09/10/19 06/28/23 Arlyn Hernandez, AMBROSE Post Acute Special ShopperSubstation Engineer 11/21/22 documented as of this encounter
--- OUTSIDE RECORDS SUMMARY | 2024-03-19 20:35 | XMS_ITS | Encounter Summary ---
Author Organization [facility] Address [address] [facility] [place] [address] Care Team Providers Care Supervisor Microfilm Duplicating Unit Name Role Phone Jean Joy MD Unavailable [phone] Yvan Booth MD Primary Care Provider [phone] Jaden Thakur DO Unavailable [phone] Arlyn Hernandez RN Unavailable Doreen Aviles Unavailable [phone] Reason for Visit * Reason Comments Transitional Care Encounter Details Date Type Department Care Team (Late st Contact Info) Description 12/15/2022 Transitional Care Transitional Care at [address] [phone] Laura Joseph, robotic welding operator Social History Tobacco Use Types Packs/Day Years [...] Score 0 11/15/2022 [facility] [place] of Occupat ional Health - Occupational Stress [...] encounter Miscellaneous Notes * Telephone Encounter - Laura Joseph RN - 12/15/2022 9:55 AM CDT RN 48 hour post discharge follow-up contact by telephone: Patient with recent Rehab discharge from [facility] on 12/14/22. This RN contacted Consuelo Darby by telephone ([phone]) to complete 48 hour post-discharge follow-up contact for Bridge clinic appointment. 1) How are you feeling? Patient states she is feeling ok, tired 2) How is your mobility? Patient states she is getting there 3) New concerns or problems? No 4) Have you had to go the ER for any reason? No 5) Any questions about your discharge diagnosis and instructions? No 6) Do you have a follow up appointment made? Patient states she has appt with PCP, Dr. Thakur, on 01/12/23 and she is going to call to try and get it moved up. Instructed to call this RN back if unable to do so. 7) Do you currently have home health, any questions about home care? No 8) Have you filled all of your RX's? Yes 9) Any questions or concerns that we can help you with? No Consuelo Darby denied any questions related to diet, medications, or condition at this time. Patient was encouraged to call this copy writer with questions, concerns, barriers to care, and/or additional resources if needed. Patient verbalized understanding and agreement with plan. This RN will continue to provide post-discharge monitoring until patient completes Bridge clinic follow up. Call Duration: 5 min Laura Joseph RN, BSN Centrifugal Separator, [facility] Office: [phone] 12/15/2022 documented in this encounter Plan of Treatment Not on file documented as of this encounter Visit Diagnoses Not on filedocumented in this encounter Care Teams Supervisor Microfilm Duplicating Unit Relationship Specialty Start Date End Date Jean Joy MD PCP - OBGYN 12/27/07 Yvan Booth MD [address] [place] [address] PCP - General 11/04/09 01/04/23 Jaden Thakur DO [address] [place] [address] PCP - Attributed-WellFirst EHP STL 09/10/19 06/28/23 Arlyn Hernandez RN Post Acute Charge Gang WeigherEscort Blind 11/21/22 Doreen Aviles Care Coordination Specialist Care Management 11/30/22 01/18/23 documented as of this encounter
--- OUTSIDE RECORDS SUMMARY | 2024-03-19 20:35 | XMS_ITS | Encounter Summary ---
Author Organization [facility] Address [address] [facility] [place] [address] Care Team Providers Care Athletic Turf Worker Name Role Phone Jean Joy MD Unavailable Yvan Booth MD Primary Care Provider [phone] Jaden Thakur DO Unavailable [phone] Arlyn Hernandez RN Unavailable Doreen Aviles Unavailable [phone] Encounter Details Date Type Department Care Team (Latest Contact Info) Description 12/26/2022 2:00 PM CDT Clinical Support [facility] - General Surgery [address] [place] [address], [place] [phone] Jazz Martin MD [address] [place] [address] [place] [address] Right middle cerebral artery stroke (HCC) Social History Tobacco Use Types Packs/Day [...] Recorded Patient Health Questionnaire-2 Score 0 11/15/2022 [facility] of Occupat ional Health - Occupational [...] Sign Reading Time Taken Comments Blood Pressure 104/69 12/26/2022 1:55 PM CDT Pulse 75 12/26/2022 1:55 PM CDT Temperature 36.2 ??C (97.2 ??F) 12/26/2022 1:55 PM CD T Respiratory Rate - - Oxygen Saturation 99% 12/26/2022 1:55 PM CDT Inhaled Oxygen Concentration - - Weight 99.8 kg (220 lb) 12/26/2022 1:55 PM CDT Height 162.6 cm (5' 4 ) 12/26/2022 1:55 PM CDT Body Mass Index 37.76 12/26/2022 1:55 PM CDT documented in this encounter Functional [...] as of this encounter Progress Notes * Sly Agrawal MD - 12/26/2022 2:06 PM CDT Trauma clinic 42F s/p EGD with endoscopic transfascial gastropexy x2 on 11/10/22 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 Doing well overall. PEG has since been removed and she is eating well. The sutures are tender whenever she uses her abdominal muscles such as sitting up, laughing, coughing, etc. Removed all sutures without difficulty. Patient had no other concerns She plans to have surgery in a couple of weeks With Dr. 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
--- OUTSIDE RECORDS SUMMARY | 2024-03-19 20:35 | XMS_ITS | Encounter Summary ---
Author Organization [facility] Address [address] [facility] [place] [address] Care Team Providers Care Building Admin Name Role Phone Jean Joy MD Unavailable [phone] Yvan Booth MD Primary Care Provider [phone] Jaden Thakur DO Unavailable [phone] Arlyn Hernandez RN Unavailable [phone] Doreen Aviles Unavailable [phone] Reason for Visit * Reason Comments Establish Care Acquired skull defec t Encounter Details Date Type Department Care Team (Late st Contact Info) Description 12/21/2022 9:15 AM CDT Office Visit [facility] - Neurosurgery [address] [place] [address], [place] [phone] Jazz Martin MD [address] [place] [address] [place] [address] Pre-op testing (Primary Dx); Acquired skull defect Social History Tobacco Use Types Packs/Day Years [...] Recorded Patient Health Questionnaire-2 Score 0 11/15/2022 [facility] of Occupat ional Health - Occupational [...] Sign Reading Time Taken Comments Blood Pressure 135/62 12/21/2022 9:16 AM CDT Pulse 68 12/21/2022 9:16 AM CDT Temperature 36.3 ??C (97.4 ??F) 12/21/2022 9:16 AM CD T Respiratory Rate 18 12/21/2022 9:16 AM CDT Oxygen Saturation 98% 12/21/2022 9:16 AM CDT Inhaled Oxygen Concentration - - Weight 99.8 kg (220 lb) 12/21/2022 9:16 AM CDT Height 162.6 cm (5' 4 ) 12/21/2022 9:16 AM CDT Body Mass Index 37.76 12/21/2022 9:16 AM CDT documented in this encounter Functional [...] No 2022 documented as of this encounter Patient Instructions * Patient Instructions* Lynette Jacques - 12/21/2022 9:56 AM CDT Surgery date 01/10/2023 will need to arrive at 0830am to [facility] 1st floor ACU Surgery: right cranioplasty, replacement of [place] bone NPO (nothing to eat or drink) after midnight Blood work today Hold Asprin and NSAIDs 7 days prior to surgery -no Motrin, Advil, Naproxen, Aleve, Kita-Con[place], Meloxicam, Ibuprofen, Fish Oil , Celebrex Hold coumadin 5 days prior to surgery For any questions please call Lynette at [phone]' documented in this encounter Progress Notes * Jazz Martin MD - 12/21/2022 5:15 PM CDT Neurosurgery Clinic Progress Note NAME: Consuelo Darby DATE OF SERVICE: (Not on file) TIME OF SERVICE: 5:15 PM DATE: 1980 PCP: Yvan Booth MD Chief Complaint Cranial defect Subjective Consuelo Darby is a 42 year old female who presents to clinic today for follow up after decompressive craniectomy for 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 She is in a rehab day program and has made significant improvement in her speech but still has dense left sided weakness. She is on coumadin for her cardiac vegetations but has not yet had cardiology follow up. There has been no recent history of headaches, irritability, increased sleepiness, nausea or vomiting, fever or seizure activity. Review of Systems GENERAL: no recent fevers, [...] ??? Abdominal pain, right upper quadrant ??? GERD (gastroesophageal reflux disease) ??? History [...] POSS. EX-LAP LEVEL 3 @ 1500 Medications Current Outpatient Medications on File Prior to Visit Medication Sig Dispense Refill ??? amitriptyline (Elavil) 50 MG tablet Take 2 (two) tablets by mouth at bedtime ??? baclofen (Lioresal) 5 MG TABS ??? bethanechol (Urecholine) 25 MG tablet ??? Cetirizine HCl (ZYRTEC PO) Take 10 [...] Vessel Obstruction by Foreign Substance or Clot No current facility-administered medications on file prior to visit. Allergies Allergies Allergen Reactions ??? Latex [...] EOMI, left facial weakness, left hemiplegia, right fullstrength. R cranial wound well healed without evidence of wound breakdown or dehiscence. 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 Plans discussed with patient and family, including how to monitor for changes in neurologic status,contact information provided at this visit. Jazz Martin MD 5:15 PM 12/21/2022 documented in this encounter Plan of Treatment Not on file documented as of this encounter Results * PTT [facility] (12/21/2022 11:07 AM CDT) APTT 26.9 23.0 - 38.4 Seconds 12/21/2022 11:46 AM CDT [facility] Comment:Suggested therapeuti c range for full dose I.V. unfractionated heparin therapy for venous thromboembolism is 71 to 109 seconds. Blood BLOOD SPECIMEN / Unknown Lab Venipuncture / Unknown 12/21/2022 11:07 AM CDT 12/21/2022 11:21 AM CDT Jazz Martin MD LAB - COAGULATION OR DERABLES [facility] [address] [place] [address], [facility] [phone] * (ABNORMAL) PT-INR [facility] (12/21/2022 11:07 AM CDT) PT 18.7(H) 12.1 - 14.8 Seconds 12/21/2022 11:46 AM CDT [facility] INR 1.6 See Comment 12/21/2022 11:46 AM [facility] Comment:The suggested therap eutic range for standard coumadin (warfarin) therapy is an INR of 2.0-3.0. For high-risk patients (Mechanical Mitral Valve Prosthesis, etc.), the suggested prophylactic therapeutic range is an INR of 2.5-3.5. Blood BLOOD SPECIMEN / Unknown Lab Venipuncture / Unknown 12/21/2022 11:07 AM CDT 12/21/2022 11:21 AM CDT Jazz Martin MD LAB - COAGULATION OR DERABLES [facility] [address] [place] [address], [facility] [phone] * (ABNORMAL) CBC WITH DIFFERENTIAL (12/21/2022 11:07 AM CDT) WBC 12.3(H) 3.5 - 10.5 10? 3 /uL 12/21/2022 11:31 AM [facility] RBC 4.98 3.80 - 5.20 10? 6 /uL 12/21/2022 11:31 AM [facility] Hemoglobin 14.4 12.0 - 15.6 g/dL 12/21/2022 11:31 AM [facility] Hematocrit 45.5(H) 35.0 - 45.0 % 12/21/2022 11:31 AM [facility] MCV 91.4 80.7 - 98.3 fL 12/21/2022 11:31 AM [facility] MCH 28.9 26.7 - 34.0 pg 12/21/2022 11:31 AM [facility] MCHC 31.6 30.8 - 35.9 g/dL 12/21/2022 11:31 AM [facility] RDW-SD 51.5(H) 36.0 - 50.0 fL 12/21/2022 11:31 AM [facility] RDW-CV 15.4(H) 11.2 - 14.8 % 12/21/2022 11:31 AM [facility] Platelet Count 351 150 - 400 10? 3 /uL 12/21/2022 11:31 AM [facility] MPV 10.8 9.4 - 12.9 fL 12/21/2022 11:31 AM [facility] nRBC Absolute 0.00 0 10? 3 /uL 12/21/2022 11:31 AM [facility] nRBC Auto 0.0 0 /100 WBC 12/21/2022 11:31 AM [facility] Neutrophils % 71.2(H) 35.0 - 70.0 % 12/21/2022 11:31 AM [facility] Lymphocytes % 19.3(L) 20.0 - 43.0 % 12/21/2022 11:31 AM [facility] Monocytes % 8.3 5.0 - 13.0 % 12/21/2022 11:31 AM [facility] Eosinophils % 0.5 0.0 - 6.0 % 12/21/2022 11:31 AM [facility] Basophil % 0.4 0.0 - 2.0 % 12/21/2022 11:31 AM [facility] Neutrophils Absolute 8.73(H) 1.60 - 7.00 10? 3 /uL 12/21/2022 11:31 AM [facility] Lymphocyte Absolute 2.37 1.10 - 3.90 10? 3 /uL 12/21/2022 11:31 AM [facility] Monocytes Absolute 1.02 0.26 - 1.07 10? 3 /uL 12/21/2022 11:31 AM [facility] Eosinophils Absolute 0.06 0.00 - 0.47 10? 3 /uL 12/21/2022 11:31 AM [facility] Basophils Absolute 0.05 0.00 - 0.08 10? 3 /uL 12/21/2022 11:31 AM [facility] Immature Granulocytes % 0.3 0.0 - 1.0 % 12/21/2022 11:31 AM [facility] Immature Granulocytes Absolute 0.04 12/21/2022 11:31 AM [facility] Blood BLOOD SPECIMEN / Unknown Lab Venipuncture / Unknown 12/21/2022 11:07 AM CDT 12/21/2022 11:21 AM CDT Jazz Martin MD LAB - HEMATOLOGY [place] [facility] [address] [place] [address], [facility] [phone] * (ABNORMAL) BASIC METABOLIC PANEL (CALCIUM TOTAL) (12/21/2022 11:07 AM CDT) BUN 10 7 - 26 mg/dL 12/21/2022 11:48 AM [facility] Creatinine 0.53(L) 0.56 - 0.96 mg/dL 12/21/2022 11:48 AM [facility] Sodium 140 136 - 145 mmol/L 12/21/2022 11:48 AM [facility] Potassium 3.7 3.5 - 4.5 mmol/L 12/21/2022 11:48 AM [facility] Chloride 105 98 - 107 mmol/L 12/21/2022 11:48 AM [facility] CO2 27 22 - 29 mmol/L 12/21/2022 11:48 AM [facility] Glucose 76 70 - 115 mg/dL 12/21/2022 11:48 AM [facility] Calcium 9.8 8.4 - 10.2 mg/dL 12/21/2022 11:48 AM [facility] Anion Gap 8 6 - 16 12/21/2022 11:48 AM [facility] BUN/Creatinine Ratio 19 7 - 23 12/21/2022 11:48 AM [facility] Osmolality Calculated 288 275 - 295 mOsm/kg 12/21/2022 11:48 AM [facility] eGFR by CKD-EPI >90 >=90 mL/min/1.7 3 m2 12/21/2022 11:48 AM [facility] Blood BLOOD SPECIMEN / Unknown Lab Venipuncture / Unknown 12/21/2022 11:07 AM CDT 12/21/2022 11:21 AM CDT Jazz Martin MD LAB - CHEMISTRY [place] [facility] [address] [place] [address], [facility] [phone] documented in this encounter Visit Diagnoses Diagnosis Pre-op testing- Primary Preoperative examination, unspecified Acquired skull defect Other specified acquired deformity of head documented in this encounter Care Teams Building Admin Relationship Specialty Start Date End Date Jean Joy MD PCP - OBGYN 12/27/07 Yvan Booth MD [address] [place] [address] PCP - General 11/04/09 01/04/23 Jaden Thakur DO [address] [place] [address] PCP - Attributed-[facility]First EHP STL 09/10/19 06/28/23 Arlyn Hernandez, AMBROSE Post Acute Roll Machine OperatorMiddle School Sports Coach 11/21/22 Doreen Aviles Care Coordination Specialist Care Management 11/30/22 01/18/23 documented as of this encounter
--- OUTSIDE RECORDS SUMMARY | 2024-03-19 20:35 | XMS_ITS | Encounter Summary ---
Author Organization [facility] Address [address] [facility] [place] [address] Care Team Providers Care Assessment Services Manager Name Role Phone Jean Joy MD Unavailable [phone] Yvan Booth MD Primary Care Provider [phone] Jaden Thakur DO Unavailable [phone] Arlyn Hernandez RN Unavailable [phone] Reason for Visit * Reason Onset Date Comments Transitions Of Care 11/27/2022 Encounter Details Date Type Department Care Team (Late st Contact Info) Description 11/27/2022 Patient Outreach [facility] Medical [facility] - Care Coordination [address] [place] [phone] Doreen Aviles Transitions Of Care Social History [...] Recorded Patient Health Questionnaire-2 Score 0 11/15/2022 [facility] [place] of Occupat ional Health - Occupational Stress [...] * Telephone Encounter - Doreen Orourke - 11/27/2022 10:05 AM CDT Discharge from Hospital to Post Acute Care Facility Outreach for Care Coordination Discharge Level of Care Management Acute Rehab awaiting discharge Facility Information: Facility Contact name / number: [facility] ? Dx:??cva Will continue outreach to verify DC plan. Doreen Sullivanan 11/27/2022 10:05 AM documented in this encounter Plan of Treatment Not on file documented as of this encounter Visit Diagnoses Not on filedocumented in this encounter Care Teams Assessment Services Manager Relationship Specialty Start Date End Date Jean Joy MD PCP - OBGYN 12/27/07 Yvan Booth MD [address] [place] [phone] PCP - General 11/04/09 01/04/23 Jaden Thakur DO [address] [place] [id number] PCP - Attributed-WellFirst EHP STL 09/10/19 06/28/23 Arlyn Hernandez, AMBROSE Post Acute Wood BorerExecutive Director Global Brand Marketing 11/21/22 documented as of this encounter
--- OUTSIDE RECORDS SUMMARY | 2024-03-19 20:35 | XMS_ITS | Encounter Summary ---
Author Organization [facility] Address [address] [place] [address] Care Team Providers Care Human Development Professor Name Role Phone Jean Joy MD Unavailable Yvan Booth MD Primary Care Provider [phone] Jaden Thakur DO Unavailable [phone] Arlyn Hernandez RN Unavailable Doreen Aviles Unavailable [phone] Reason for Visit * Reason Comments Establish Care Void trial Encounter Details Date Type Department Care Team (Late st Contact Info) Description 12/15/2022 10:00 AM CDT Office Visit [facility] - Urology [address] [place] [address] [address] [place] [address] Dottie Monreal, [employer] DIRECTOR-CONTROL SPECIALIST [address] [facility] [place] [address] Urinary retention (Primary Dx) Social History Tobacco [...] Recorded Patient Health Questionnaire-2 Score 0 11/15/2022 [facility] - Occupational Stress [...] Sign Reading Time Taken Comments Blood Pressure 144/90 12/15/2022 9:47 AM CDT Pulse 65 12/15/2022 9:47 AM CDT Temperature 36.9 ??C (98.5 ??F) 12/15/2022 9:47 AM CD T Respiratory Rate - - Oxygen Saturation 96% 12/15/2022 9:47 AM CDT Inhaled Oxygen Concentration - - Weight 93 kg (205 lb) 12/15/2022 9:47 AM CDT Height 162.6 cm (5' 4 ) 12/15/2022 9:47 AM CDT Body Mass Index 35.19 12/15/2022 9:47 AM CDT documented in this encounter Functional [...] as of this encounter Progress Notes * Dottie Monreal APRN-CNP - 12/15/2022 12:13 PM CDT [facility] Division of Urologic Surgery BRUCE Ansari Date of Visit: 12/15/2022 Patient Name: Consuelo Darby : 1980 Medical Record: [id number] Contact (home) [phone] (work) Age: [age] year old Sex: female Referring Physician: No referring provider defined for this encounter. Chief Complaint: Chief Complaint Patient presents with ??? Establish Care Void trial History of Present Illness: The patient is a 42 year old white female for follow up of urinary retention. She presented to [facility] on 10/19/22 due to L sided weakness [...] afterwards. No urinary issues prior to admission. TODAY 12/15/22 Patient presents for follow up on urinary retention while hospitalized. States she had her acevedo removed a couple weeks ago and has been doing intermittent cath while in rehab and is now home and hasbeen voiding on her own since yesterday and has no concerns. She states she is currently on antibiotics for UTI. Patient in wheelchair, at bedside PVR 127ml Past Medical History; Past Medical History: Diagnosis [...] Outpatient Medications Medication Sig Dispense Refill ??? amitriptyline (Elavil) [...] Substance or Clot No current facility-administered medications for this visit. Allergies; Latex Family History: Family History Problem Relation Name [...] file Occupational History ??? 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 Smoking status: Former Packs/day: 0.50 Types: Cigarettes Quit date: 2015 Years since quittin.7 ??? Smokeless tobacco: Never Vaping Use ??? [...] No Stress: No Stress Concern Present (10/19/2022) [facility] [place] [facility] - Occupational Stress Questionnaire [...] Negative Endocrine: Negative Physical Exam: Vital Signs: BP 144/90 (BP SITE: RIGHT ARM, BP POSITION: SITTING, BP CUFF SIZE: 11) Pulse 65 Temp 98.5 ??F (36.9 ??C) (Temporal) Ht 1.626 m (5' 4 ) Wt 93 kg (205 lb) SpO2 96% PVR per bladder scanner: 127ml Imaging (images and reports reviewed): Laboratory Studies: No results found for this visit on 12/15/22. Microbiology: Pathology: No new path Diagnosis: Urinary retention Recommendations: -follow up in 8 weeks for PVR 30 minutes were spent with patient. >50% were spent counseling patient. Patient's questions were answered and patient agrees with plan. BRUCE Ansari 12/15/2022 12:14 PM documented in this encounter Plan of Treatment Not on file documented as of this encounter Visit Diagnoses Diagnosis Urinary retention- Primary Retention of urine, unspecified documented in this encounter Care Teams Human Development Professor Relationship Specialty Start Date End Date Jean Joy MD PCP - OBGYN 12/27/07 Yvan Booth MD [address] [place] [id number] PCP - General 11/04/09 01/04/23 Jaden Thakur DO [address] [place] [address] [id number] PCP - Attributed-[facility] 09/10/19 06/28/23 Arlyn Hernandez, [facility] OrderlyHand Upper And Bottom Lacer 11/21/22 Doreen Aviles Care Coordination Specialist Care Management 11/30/22 01/18/23 documented as of this encounter
--- OUTSIDE RECORDS SUMMARY | 2024-03-19 20:37 | XMS_ITS | Encounter Summary ---
Author Organization [facility] Address [address] [place] [address] Care Team Providers Care Gym Teacher Name Role Phone Jean Joy MD Unavailable [phone] Yvan Booth MD Primary Care Provider [phone] Jaden Thakur DO Unavailable [phone] Reason for Referral * Radiology Services (Routine) - Closed Specialty Diagnoses / Procedures Referred By Contac t Referred To Contact Vascular Lab Diagnoses Iliac artery occlusion, right (HCC) Procedures VAS ARTERIAL ANKLE ARM INDEX Valdez Clay MD [address] [place] [address] [address] [place] [address] [facility] [address] [place] [address] Referral ID Status Reason Start Date Expiration Date Visits Re quested Visits Authorized [id number] Closed 10/31/2022 10/31/2023 1 1 * Laboratory Services (Routine) - Closed Specialty Diagnoses / Procedures Referred By Jimena t Referred To Contact Procedures FACTOR [place] [address] [place] [address] [address] [place] [address] Referral ID Status Reason Start Date Expiration Date Visits Re quested Visits Authorized [id number] Closed 10/20/2022 10/20/2023 1 1 Reason for Visit * Reason Comments Altered mental status PT BIBEMS for code stroke. called EMS for Pt found down on ground next to bed at 0645. LKW approx 0630. EMS reports pts left side completely flaccid, and non verbal on arrival. En route EMS reports pt answers questions appropriately and speech cleared. Pt currently a&o x4, speech clear, and has left sided weakness. * Auth/Cert (Routine) Specialty Diagnoses / Procedures Referred By Contac t Referred To Contact Referral ID Status Reason Start Date Expiration Date Visits Re quested Visits Authorized [id number] 1 1 Encounter Details Date Type Department Care Team (Latest Contact Info) Description 10/19/2022 7:53 AM CDT - 11/17/2022 3:54 PM CDT Hospital Encounter SL 5N ACUTE [address] [place] [phone] Jim Walter MD [address] [place] [address] Good Antunez MD [address] [place] [phone] Emir Vail MD [address] [facility] [phone] Jaime Drew MD [address] [facility] [address] [place] [phone] Neurology Discharge Disposition: Rehab:Inpatient Social History Tobacco Use Types Packs/Day Years [...] 0 11/15/2022 [facility] - Occupational [...] Sign Reading Time Taken Comments Blood Pressure 114/58 11/17/2022 4:02 AM CDT Pulse 107 11/17/2022 8:07 AM CDT Temperature 37 ??C (98.6 ??F) 11/17/2022 8:07 AM CDT Respiratory Rate 16 11/17/2022 12:16 AM CDT Oxygen Saturation 97% 11/17/2022 8:07 AM CDT Inhaled Oxygen Concentration 30% 10/24/2022 2 :00 PM CDT Weight 95.3 kg (210 lb) 11/06/2022 11:48 AM CDT Height 162.6 cm (5' 4 ) 11/06/2022 11:48 AM CDT Body Mass Index 36.05 11/06/2022 11:48 AM CDT documented in this encounter Functional [...] No 2022 documented as of this encounter Discharge Summaries * Karishma Ojeda MD - 11/17/2022 3:12 PM CDT Physician Discharge Summary Patient ID: Consuelo Draby [id number] 42 year old 1980 Admit date: 10/19/2022 Discharge date and time: Admitting Physician: Good Antunez MD Discharge Physician: Good Antunez MD Admission Condition: poor Discharged Condition: stable Consults: Cardiology, Cardiothoracic surgery, General surgery, GI, Hematology, ID, Intensive care, Interventional Radiology, Neurology, Neurosurgery, Urology, Vascular surgery, Internal Medicine, Dermatology (for skin morbilliform reaction to likely cefepime) , Rheumatology Reason for admission: R MCA infarct Problems present on admission: L gaze plasy, L hemainopsia, mild dysarthria, and extinction Discharge Diagnoses: Ischemic R MCA stroke New problems on discharge, not present on admission Femoral vessel thrombosis, cardiac vegetation, urinary retention Hospital Course: Consuelo Darby is a 41yo woman with hx of hemiplegic migraine,??GERD, GENESIS. who developed acute onset L sided weakness, L-sided sensory deficits, and dysarthria. L sided weakness resolved in route anddysarthria improved in route. On arrival patient noted to hae L gaze plasy, L hemainopsia, mild dysarthria, and extinction. NIHSS: 7 on arrival on 10/19/22. S/p TNK and ??TICI2b revascularization of the R MCA M1 occlusion. Repeat CTH showed edema in R MCA territory. On 10/20/22 pt underwent hemicraniectomy, post-op CTH showing stable midline shift. ESUS work-up initiated. Initial hypercoag work up negative (may plan to repeat in 2 months) but further clinical course complicated as below: ?? -10/23- SARAH concerning for aortic cusp vegetations. [...] and patch angioplasty. 10/31: CT A/P obtained 04/13 concern for abscess by GI team while evaluating her for consideration of G tube but repeat imaging on 11/01 showed no abscess-- likely postsurgical changes after vascular surgery. ?? 11/02 GI took her to OR for [...] ?thrombotic cardiac vegetation to maintain INR goal 2-3. Pt is now to continue Meropenem and doxycycline until 11/22/22 per ID recommendations. SARAH as outpatient after antibiotics over (~ 11/23) abd results to be notified to Cardiothoracic surgery/cardiology. Urology shall also see her outpatient to assist with void trial again and re-evaluate. Warfarin tocontinue per pharmacy at the facility for INR goal 2-3. Patient discharged in stable condition to rehab for therapies. To follow outpatient: Neurology, CTS, Cardiology, Vascular surgery, Infectious diseases, Urology, Discharge Exam: Cortical Function Mental Status Awake, alert, follows basic commands Orientation Place, person Language Able to vocalize words now Visual Powell Intact bilaterally to confrontation Neglect No visual neglect noted, no tactile neglect noted ?? Cranial Nerves II Pupils 3 mm and bilaterally reactive to light. Fundoscopic exam not performed. VIII Hearing is intact bilaterally to voice. III/IV/ Extraocular muscles intact. No diplopia, ptosis, nystagmus or convergence abnormalities noted. IX/X REYNOLD V REYNOLD XI Head turning and shoulder shrug are intact. VII L facial palsy XII Tongue is midline with normal movements and no atrophy noted. ?? Motor Function Movement No abnormalities noted Bulk No abnormalities noted Tone No abnormalities noted ?? Moves RUE and RLE 4/5 strength, tries to withdraw to pain in LUE and LLE 2/5 in left side ?? Sensory Light Touch Symmetric and intact bilaterally Noxious Stimuli Symmetric and intact bilaterally ?? Gait REYNOLD Significant Diagnostic Studies: Labs this admission: CBC: Recent Labs Lab Units 11/17/2220111/16/2221611/15/2221111/14/2223811/13/22209 WBC 10??3/uL 9.4 7.3 5.5 4.7 2.7* RBC 10??6/uL 3.57* 3.49* 3.51* 3.47* 3.36* HGB g/dL 10.4* 10.1* 10.0* 9.9* 9.8* HCT % 33.4* 32.6* 32.6* 32.8* 30.8* BMP: Recent Labs Lab Units 11/17/2220111/16/2221611/15/2221111/14/2223811/13/22 0210 NA mmol/L 138 139 137 140 138 CL mmol/L 99 104 103 104 107 CO2 mmol/L 27 27 26 25 23 BUN mg/dL 14 13 12 11 11 CREATININE mg/dL 0.62 0.57 0.50* 0.51* 0.54* CALCIUM mg/dL 8.9 8.8 8.6 8.6 8.1* Magnesium: No results for input(s): MG in the last 168 hours. Phosphorus: Recent Labs Lab Units 11/17/2220111/16/22 0217 11/15/22 0212 11/14/22 0239 11/13/22 0210 PHOS mg/dL 3.6 3.5 3.0 3.5 3.9 Coagulation: Recent Labs Lab Units 11/17/22 0202 11/16/22 0217 11/15/22 0212 11/14/22 0239 11/13/22 0210 PT Seconds 14.4 13.9 14.3 15.9* 17.7* INR 1.1 1.1 1.1 1.3 1.5 Endocrine: Recent Labs Lab Units 11/13/22 021 TSH uIU/mL 5.706* LFTs: Recent Labs Lab Units 11/17/22 02011/15/2221111/14/22238 AST U/L 138* 104* 158* ALT U/L 257* 237* 278* TBILI mg/dL 0.4 0.3 0.3 DBILI mg/dL 0.1 0.1 0.1 IBILI mg/dL 0.3 0.2 0.2 ALB g/dL 2.8* 2.5* 2.4* Imaging: CT ABDOMEN PELVIS W CONTRAST Result Date: 11/17/2022 Impression: 1.Interval resolution of the fluid collection [...] resolved. > Dictated by Abdifatah Jean MD (resident services coordinator). Alexx Orenlas have personally reviewed and interpreted this examination/study. > Interpreting Provider: Alexx Lopez on 11/17/2022 11:31 AM FL LUMBAR PUNCTURE Result Date: 11/15/2022 IMPRESSION: 1.Successful lumbar puncture under fluoroscopic guidance at L3-L4. > Dictated by Royer Stovall MD (resident services coordinator). Oriana Ornelas MD have personally reviewed and interpreted this examination/study. > Interpreting Provider: Oriana Suarez MD on 11/15/2022 2:16 PM US ABDOMEN LTD W COMP DOPPLER Result Date: 11/14/2022 IMPRESSION: 1.No discrete hepatic lesion or intrahepatic biliary ductal dilatation. 2.Patent hepatic vasculature. Borderline low velocity the main portal vein measuring 18 cm/s. 3.Status post cholecystectomy. > Dictated by Miranda Bowen MD (resident services coordinator). > Dictated by Miranda Bowen (Human Resources Compensation Analyst) 11/14/2022 9:18 AM I, HEATHER FREGOSO MD have personally reviewed and interpreted this examination/study. > Interpreting Provider: HEATHER FREGOSO MD on 11/14/2022 9:54 AM Disposition: Rehabilitation facility Patient Instructions: Medication List START taking these medications doxycycline monohydrate 100 MG capsule 1 (one) capsule by Enteral Tube route every 12 hours for 5 days enoxaparin 100 MG/ML injection Commonly known as: Lovenox Inject 100 (one hundred) mg subcutaneously every 12 hours meropenem 1 g 2,000 mg in 0.9% NaCl IV 0.9 % 100 mL 2,000 (two thousand) mg by Intravenous route every 8 hours for 5 days triamcinolone acetonide 0.1 % ointment Commonly known as: Kenalog Apply to affected area 2 times daily as needed warfarin 5 MG tablet Commonly known as: Coumadin Take 1 (one) tablet by mouth once daily Please prescribe warfarin based on pharmacy orders and bridge with enoxaparin; INR goal 2-3 Reasons: Blood Vessel Obstruction by Foreign Substance or Clot CONTINUE taking these medications amitriptyline 50 MG tablet Commonly known as: Elavil metoprolol tartrate IR 25 MG tablet Commonly known as: Lopressor omeprazole 20 MG capsule Commonly known as: PriLOSEC verapamil SR 24hr 120 MG capsule Commonly known as: Verelan Vitamin D3 (cholecalciferol) 50 MCG (1999 UT) tablet ZYRTEC PO STOP taking these medications levonorgestrel-ethinyl estradiol 0.1-20 MG-MCG tablet Commonly known as: LESSINA-28 Where to Get Your Medications Information about where to get these medications is not yet available Ask your nurse or doctor about these medications ?? doxycycline monohydrate 100 MG capsule ?? enoxaparin 100 MG/ML injection ?? meropenem 1 g 2,000 mg in 0.9% NaCl IV 0.9 % 100 mL ?? triamcinolone acetonide 0.1 % ointment ?? warfarin 5 MG tablet Contact information for follow-up providers Jazz Marquez MD . Specialty: Neurological Surgery Contact information: [facility] [address] Contact information for after-discharge care Destination [facility] (ALL LOCATIONS) . Service: Inpatient Rehabilitation Contact information: Zafar S[address] [facility] [id number] Discharge Instructions You have been scheduled with Dr. Walter for follow up in regards to your stroke and hospital stay.If the time and/or day of this appointment doesn't work for you, please call [phone] to make changes. Continue Doxycycline and Meropenem until 11/22/22 as determined by Infectious diseases. Please get SARAH outpatient after the course of antibiotics is over. Follow-up with Cardiology and Cardiothoracic surgery with results. Continue Warfarin as dosed per pharmacy with Lovenox bridge for a while to achieve INR goal of 2-3.(It HAS TO BE DETERMINED BY PHARMACY). Please follow-up with vascular surgery and surgery if any concerns with sites of procedure (femoralvessel and peg, respectively). Please follow-up with infectious diseases outpatient after antibiotic course is over. Discontinued the OCPs due to concerns for hypercoagulation. R groin Incision care: Your incision has a liquid film called skin glue which holds edges together. It will usually remainin place for 5-10 days, then naturally fall of your skin. Some swelling, redness, and pain are common with all wounds and normally will go away as the incision heals. If swelling, redness, or pain increases of if the incision feels warm to touch, contact the Vascular surgery office. Also, contact the office if the incision edges reopen or separate. Do not place tape on the skin glue. Do not scratch, rub, or pick at the skin glue. Avoid prolonged exposure to sunlight while the glue is in place. Avoid liquid or ointment medications to the incision while the glue is in place. Keep the site dry and protected. You may briefly wet it in the shower,but do not soak or scrub the incision. Gently blot dry the incision after showering. Call our office at [phone] for: Chills/fever/Temp greater than 101 degrees If your incision has drainage, swelling, redness, or if it opens. If your foot becomes cold, painful, you have problems moving it, or it changes color After hours number is [phone] and ask for vascular surgery Follow up in clinic with Dr Clay in 4 weeks with vascular studies prior to appt; you will be contacted regarding this To make or change an appt call [phone] Urology Follow-up You have a follow up appointment with Dottie Monreal NP on SundayDecember 06 at 9:45am. Thisis at the [place] office, located at [address]. The clinic number is [phone]. It is very important that you make this appointment or call to re-schedule if needed. You will have a void trial completed at this appointment Signed: Karishma Ojeda MD documented in this encounter Discharge Instructions * Discharge Instructions* Karishma Ojeda MD - 10/20/2022 7:23 AM CDT You have been scheduled with Dr. Walter for follow up in regards to your stroke and hospital stay.If the time and/or day of this appointment doesn't work for you, please call [phone] to make changes. We may consider hypercoagulability work-up again in 2 months on follow-up. Continue Doxycycline and Meropenem until 11/22/22 as determined by Infectious diseases. Please get SARAH outpatient after the course of antibiotics is over. Follow-up with Cardiology and Cardiothoracic surgery with results. Continue Warfarin as dosed per pharmacy with Lovenox bridge for a while to achieve INR goal of 2-3.(It HAS TO BE DETERMINED BY PHARMACY). Please follow-up with vascular surgery and surgery if any concerns with sites of procedure (femoralvessel and peg, respectively). Please follow-up with infectious diseases outpatient after antibiotic course is over. Discontinued the OCPs due to concerns for hypercoagulation. R groin Incision care: Your incision has a liquid film called skin glue which holds edges together. It will usually remainin place for 5-10 days, then naturally fall of your skin. Some swelling, redness, and pain are common with all wounds and normally will go away as the incision heals. If swelling, redness, or pain increases of if the incision feels warm to touch, contact the Vascular surgery office. Also, contact the office if the incision edges reopen or separate. Do not place tape on the skin glue. Do not scratch, rub, or pick at the skin glue. Avoid prolonged exposure to sunlight while the glue is in place. Avoid liquid or ointment medications to the incision while the glue is in place. Keep the site dry and protected. You may briefly wet it in the shower,but do not soak or scrub the incision. Gently blot dry the incision after showering. Call our office at [phone] for: Chills/fever/Temp greater than 101 degrees If your incision has drainage, swelling, redness, or if it opens. If your foot becomes cold, painful, you have problems moving it, or it changes color After hours number is [phone] and ask for vascular surgery Follow up in clinic with Dr Clay in 4 weeks with vascular studies prior to appt; you will be contacted regarding this To make or change an appt call [phone] Urology Follow-up You have a follow up appointment with Dottie Monreal NP on SundayDecember 06 at 9:45am. Thisis at the [place] office, located at [address] [place] [address]. The clinic number is [phone]. It is very important that you make this appointment or call to re-schedule if needed. You will have a void trial completed at this appointment documented in this encounter Medications at Time of Discharge Medication Sig Dispensed Refills Start Date End Date Cetirizine HCl (ZYRTEC PO) Take 10 mg by mouth once daily metoprolol tartrate IR (Lopressor) 25 MG tablet Take 1 (one) tablet by mouth 2 times daily 08/15/2022 verapamil SR 24hr (Verelan) 120 MG capsule Take 1 (one) capsule by mouth at bedtime 10/17/2022 amitriptyline (Elavil) 50 MG tablet Take 2 (two) tablets by mouth at bedtime 08/17/2022 12/26/2022 doxycycline monohydrate 100 MG capsule 1 (one) capsule by Enteral Tube route every 12 hours for 5 days 10 capsule 11/17/2022 11/22/2022 enoxaparin (Lovenox) 100 MG/ML injection Inject 100 (one hundred) mg subcutaneously every 12 hours 11/17/2022 01/05/2023 meropenem 1 g 2,000 mg in 0.9% NaCl IV 0.9 % 100 mL 2,000 (two thousand) mg by Intravenous route every 8 hours for 5 days 0 11/17/2022 11/22/2022 omeprazole (PriLOSEC) 20 MG capsule Take 20 mg by mouth daily before breakfast triamcinolone acetonide (Kenalog) 0.1 % ointment Apply to affected area 2 times daily as needed 11/17/2022 12/26/2022 Vitamin D3, cholecalciferol, 50 MCG (2000 UT) tablet Take 1 (one) tablet by mouth once daily 01/05/2023 warfarin (Coumadin) 5 MG tabletIndications:Em bolism Take 1 (one) tablet by mouth once daily Please prescribe warfarin based on pharmacy orders and bridge with enoxaparin; INR goal 2-3 Reasons: Blood Vessel Obstruction by Foreign Substance or Clot 11/17/2022 01/09/2023 documented as of this encounter Progress Notes * Chin Cabello RN - 11/17/2022 12:57 PM CDT Report given to Katelyn at [facility] rehab. * Anita Richards - 11/17/2022 12:50 PM CDT Facility Transfer Note Actual level of care at discharge: Acute Rehab Facility Discharge Facility Information: [facility] ([address] [place] [address]) [place] Made Aware of Special Needs (if applicable): JAMIE RN Call Report to: [phone] Fax D/C Orders to:[phone] Date/time of transfer: 11/17/2022 @ [facility] Trip# [id number] Transportation: [facility] [phone] Certificate of Medical Necessity rationale: Rt middle cerebral artery Stroke; Max assist of 2; Fall/Aspiration/bleeding precautions The patient has the following conditions (supporting documentation is within the medical record): ?? Assistance: Max Assist (give more details) and Risk of falling out of Wheel Chair in motion Stroke ?? Cognitive: : Requires supervision during trip ?? Medical: Requires medical monitoring during trip ?? Equipment:None ?? Infection: None ?? Orthopedic Device: None Accepting MD and contact #: Dr. Frias Completed and Signed [id number] (if applicable): NA Family/Other Notified of Transfer (name/phone): Patient/spouse notified Authorization for Snf Facility: ARU rec'd Authorization for Transportation: NA Verified Qualifying Stay(Skilled Only): NOT APPLICABLE Comments: SW faxed discharge to facility orders, after visit summary, and the MAR report to the accepting facility. Thank you, JAYLENE Holcomb, HUMERA [facility] 11/17/2022 12:50 PM * Elida Yancey RN - 11/17/2022 12:[address] [facility] Rehab has accepted this patient and she is in agreement to be transfered to acute rehab on the [facility] room 303. Patient and family updated at bedside. Room is ready. Accepting physician is Dr. Frias. May fax discharge orders to [phone]. May call report to [phone]. If needed, Cager Operator can be reached at [phone]. Thank you for the referral. Elida Yancey, RN, BSN Clinical Liaison [facility] [phone] * Chin Cabello RN - 11/17/2022 11:06 AM CDT Problem: ELOPEMENT/ABDUCTION Goal: Risk for elopement &/or abduction during hospitalization is minimized Outcome: Progressing Problem: Pain/Discomfort Goal: Patient uses pharmacological and non-pharmacological pain management strategies. Outcome: Progressing Goal: Patient verbalizes acceptable level of pain relief and ability to engage in desired activity. Outcome: Progressing Problem: Mobility Goal: Patient's mobility/activity will be maintained as optimum level for age, diagnosis and physical limitations Outcome: Progressing Goal: Continuum of care needs are further met through referral to outpatient services when appropriate. Outcome: Progressing Goal: Patient reports the ability to perform Activities of Daily Living. Outcome: Progressing Problem: Communication Impairment/Dysarthria Goal: Ability to express needs and understand communication Outcome: Progressing Problem: Nutrition Goal: Nutritional status is improving Outcome: Progressing Problem: Glycemic Control Goal: Clinical indication of glycemia balance is achieved Outcome: Progressing Problem: Knowledge Deficit,Education,Discharge Plan Goal: The patient/family will understand cerebrovascular disease and its symptoms, treatment and management Outcome: Progressing Problem: Oral Intake: Inadequate oral intake Goal: Total intake will meet estimated nutrient needs Outcome: Progressing Problem: Swallowing Goal: LTG - Patient will tolerate the least restrictive diet consistency to allow for safe consumption of daily meals Outcome: Progressing Goal: STG - Patient will participate in instrumental assessment of swallowing as appropriate Outcome: Progressing Goal: STG - Patient will tolerate therapeutic trials of recommended consistency without clincial signs and symptoms of aspiration Outcome: Progressing Goal: STG - Patient will tolerate recommended food and liquid consistencies without clinical signs and symptoms of aspiration Outcome: Progressing Goal: STG - Patient will complete swallowing exercises Outcome: Progressing Goal: STG - Patient/family will complete oral motor exercises for improved bolus control Outcome: Progressing Problem: Transfers Goal: STG - Transfer from bed to chair Outcome: Progressing Problem: Risk for Violence: Self-Directed or Other Directed Description: Diagnosis: Risk for self-directed Violence or Risk for Directed Violence Risk Factors: Biochemical/neurologic imbalances, impulsivity, manic excitement, psychotic symptomatology, rage reaction, restlessness Possibly Evidenced By: agitated behaviors, delusional thinking, hallucinations, loud/threatening/profane speech, poor impulse control, provocative behaviors, verbal threats against others, verbal threats against self Goal: Patient will verbalize control of feelings. Outcome: Progressing Goal: Patient will respond to interventions when potential or actual loss of control occurs. Outcome: Progressing Goal: Patient will refrain from provoking others to physical harm. Outcome: Progressing Goal: Patient will display nonviolent behaviors toward others in the hospital, with the aid of medications and nursing interventions. Outcome: Progressing Goal: Patient will seek help when experiencing aggressive impulses. Outcome: Progressing Goal: Patient will refrain from verbal threats and loud, profrane language toward others. Outcome: Progressing Goal: Patient will be safe and free from injury. Outcome: Progressing Problem: Skin Integrity Goal: Skin integrity is maintained or improved Outcome: Progressing Problem: Neurological Deficit Goal: Neurological status is stable or improving Outcome: Progressing * Maru Mcduffie RN - 11/17/2022 11:00 AM CDT Care Coordination Progress Note Anticipated level of care at discharge: Acute Rehab Facility: Anticipated level of care provider: [facility]: Anticipated Discharge Date: 11/17/22: Discharge Plan: [facility] Rehab [facility] pending bed availability. Orientation Level: Oriented to Person;Oriented to Place;Oriented to Situation: Family Support (Name and Phone): Extended Emergency Contact Information Primary Emergency Contact: Hi Darby Address: [address] [place] [address] [place] [address] [facility] Relation: Spouse Secondary Emergency Contact: Sandra Disla [facility] Mobile Relation: Mother Transportation at Discharge: Ambulance: READMISSION RISK SCORE is 17 at 12:58 PM 11/17/2022.: Name: Maru Mcduffie RN [id number] * Roderick Hernández, ManuelD - 11/17/2022 9:47 AM CDT Warfarin per Pharmacy Protocol S/O Consuelo Darby 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 Adverse events related to anticoagulation: None Labs Recent Labs Component Name 11/17/22 0202 11/16/22 0217 11/15/22 0212 PT 14.4 13.9 14.3 INR 1.1 1.1 1.1 Recent Labs Component Name 11/17/22 0202 11/16/227 11/15/22211 PTT 34.4 26.0 28.2 Recent Labs Component Name 11/17/22 0202 11/16/227 11/15/22211 HGB 10.4* 10.1* 10.0* HCT 33.4* 32.6* 32.6* PLTCOUNT 505* 446* 404* Recent Labs Component Name 11/17/22 0202 06/15/227 12/09/18 0812 ALBUMIN - - 4.5 ALT 257* - 17 AST 138* - 18 TBIL - - 0.3 TPROT - - 8.4* - = values in this interval not displayed. Warfarin Dose History Date INR Dose (mg) Comments 11/03 1.2 5 mg New start with heparin bridge 11/04 1.1 5 mg 11/05 1.3 5 mg 11/06 1.4 5 mg 11/07 1.6 5 mg Changed to therapeutic enoxaparin bridge 11/08 1.6 6 mg 11/09 1.6 6 mg 11/10 1.8 1.3 (post Kcentra) --- Dosing held and reversed with 4-PCC ~22 units/kg dose to go to OR for exlap 11/11 1.3 5 mg Hep gtt started and warfarin restarted 11/12 2.0 3 mg INR response may be due to residual impact of previous warfarin and now drug interactions notes below; and/or less lasting impact of 4PCC with dosing on lower end of unit/kg 11/13 Held held for LP 11/14 Held 11/15 Held 11/16 1.1 5 mg Restarting following LP, therapeutic lovenox to bridge Goal INR: 2.0 - 3.0 Today's INR: Subtherapeutic at 1.1 Assessment Goal INR: 2.0 - 3.0. Today's INR is Subtherapeutic Pertinent medications during hospitalization: doxycycline and lansoprazole have potential to increase warfarin concentration Plan 1. Warfarin dose: 5 mg X 1 2. Daily INR 3. Bridging therapy with enoxaparin 100mg Q 12 hours 4. Warfarin education completed on 11/06 Roderick Hernández, [place] 11/17/2022 9:26 AM * Good Antunez MD - 11/17/2022 8:57 AM CDT I have seen and examined the patient with the resident and I agree with the findings and plan of care as documented by the reisident. Date of Service: 11/17/2022 Good Antunez MD Multidisciplinary rounds were held at 9am and the patient's care and recovery plan were reviewed and developed with the assembled team. Consuelo Darby is a 42 year old F p/w M1 occlusion s/p TNK and MT and TICI2b revascularization on10/19. TTE showed mobile aortic valve vegetation. Developed MCA syndrome s/p hemicrani. 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 - Fever: consulted ID, broaden abx, Cxs. - MRI brain w/wo done (11/10): cortical enhancement along the right frontal parietal and temporal regions 2/2 infarct progression but can't rule out cerebritis or infections.LP not concerning, however. -- glenis PEG fluid collection: Improved on abx - Urology replaced puentes (11/09-) -Now awaiting dc to acute rehab. Problem List Right middle cerebral artery stroke (CMS/HCC) (POA: Unknown) Acute cerebrovascular accident (CVA) due to embolism of right middle cerebral artery (CMS/HCC) (POA: Yes) Nihss score 9 (POA: Yes) Received intravenous tissue plasminogen activator (tPA) in emergency department (POA: Yes) GERD (gastroesophageal reflux disease) (POA: Yes) Hemianopsia (POA: Yes) Weakness (POA: Yes) Left-sided sensory deficit present (POA: Yes) Gaze palsy (POA: Yes) Migraine (POA: Unknown) Hypertension (POA: Unknown) Presence of externally removable percutaneous endoscopic gastrostomy (PEG) tube (CMS/HCC) (POA: Unknown) Anemia (POA: Yes) Hepatocellular injury (POA: No) See Resident note for the remaining problem specific plan. 29 MEDICATIONS FOR CURRENT ENCOUNTER: SCHEDULED MEDICATIONS: 0.9% NaCl injection 10-40 mL, Intracatheter, q8h 0.9% NaCl injection 10-40 mL, Intracatheter, q8h 0.9% NaCl injection 3 mL, Intracatheter, q8h doxycycline monohydrate capsule 100 mg, Enteral Tube, q12h enoxaparin (Lovenox) injection 100 mg, Subcutaneous, q12h guaiFENesin (Robitussin) solution 10 mL, Enteral Tube, q12h iopamidol (Isovue 370) 76 % contrast, Intravenous, Contrast - Once lansoprazole (Prevacid) suspension 30 mg, Enteral Tube, QDAY BEFORE BREAKFAST loratadine (Claritin) tablet 10 mg, Enteral Tube, QDAY meropenem (Merrem) 2,000 mg in 0.9% NaCl IV 140 mL IVPB, Intravenous, q8h metoprolol tartrate IR (Lopressor) tablet 25 mg, Enteral Tube, q12h perflutren lipid microsphere (Definity) injection 0.5 mL, Intravenous, intra- Procedure multiple tamsulosin (Flomax) capsule 0.4 mg, Enteral Tube, QDAY triamcinolone acetonide (Kenalog) 0.1 % ointment, Topical, BID verapamil (Isoptin) tablet 40 mg, Enteral Tube, q8h vitamin D3 (Cholecalciferol) 25 MCG (1000 UNITS) tablet 2,000 Units, Enteral Tube, QDAY ?? [] lidocaine PF (Xylocaine MPF) 1 % injection, Intradermal, Once ?? CONTINUOUS MEDICATIONS: PRN MEDICATIONS: 0.9% NaCl injection 10-40 mL, Intravenous, PRN 0.9% NaCl injection 10-40 mL, Intravenous, PRN 0.9% NaCl injection 3 mL, Intracatheter, PRN acetaminophen (Tylenol) tablet 500 mg, Enteral Tube, q6h PRN bisacodyl (Dulcolax) suppository 10 mg, Rectal, QDAY PRN oxyCODONE (immediate release) (Roxicodone) tablet 5 mg, Enteral Tube, q6h PRN polyethylene glycol 3350 (Miralax) packet 17 g, Enteral Tube, QDAY PRN ?? senna-docusate (Senokot-S) tablet 2 tablet, Enteral Tube, QDAY PRN Patient Vitals for the past 24 hrs: Temp Pulse Resp BP 11/17/22 0402 97.7 ??F (36.5 ??C) 91 -- 114/58 11/17/22 0016 98.2 ??F (36.8 ??C) 100 16 137/68 11/16/222025 97.2 ??F (36.2 ??C) 97 16 116/65 11/16/221736 97.2 ??F (36.2 ??C) 86 -- 109/66 11/16/22 1513 -- -- -- 114/54 11/16/22 1003 -- 91 -- 111/59 Recent Labs Component Name 11/17/22 0202 11/16/227 11/15/22211 NA 138 139 137 CL 99 104 103 CO2 27 27 26 BUN 14 13 12 CREATININE 0.62 0.57 0.50* CALCIUM 8.9 8.8 8.6 PHOS 3.6 3.5 3.0 Recent Labs Component Name 11/17/22 0202 11/16/227 11/15/2221110/23/22 0129 10/22/22 0153 WBC 9.4 7.3 5.5 - - RBC 3.57* 3.49* 3.51* - - HGB 10.4* 10.1* 10.0* - - HCT 33.4* 32.6* 32.6* - - PLT - - - - 199 - = values in this interval not displayed. Recent Labs Component Name 10/20/22 0302 06/15/22 0757 CHOL 173 204* TRIG 201* 251* HDL 42 37* LDLCALC 91 117* Recent Labs Component Name 10/20/22 1015 HGBA1C 6.0* EAG 126 Recent Labs Component Name 11/17/22 0202 11/16/227 11/15/22 02110/27/22202810/27/22 0054 PLTCOUNT 505* 446* 404* - 519* PLATELET - - - - Occasional* - = values in this interval not displayed. * Carrillo Avilez RN - 11/17/2022 2:45 AM CDT Problem: Pain/Discomfort Goal: Patient uses pharmacological and non-pharmacological pain management strategies. Outcome: Progressing Goal: Patient verbalizes acceptable level of pain relief and ability to engage in desired activity. Outcome: Progressing Problem: Mobility Goal: Patient's mobility/activity will be maintained as optimum level for age, diagnosis and physical limitations Outcome: Progressing Problem: Risk for Violence: Self-Directed or Other Directed Description: Diagnosis: Risk for self-directed Violence or Risk for Directed Violence Risk Factors: Biochemical/neurologic imbalances, impulsivity, manic excitement, psychotic symptomatology, rage reaction, restlessness Possibly Evidenced By: agitated behaviors, delusional thinking, hallucinations, loud/threatening/profane speech, poor impulse control, provocative behaviors, verbal threats against others, verbal threats against self Goal: Patient will be safe and free from injury. Outcome: Progressing Problem: Skin Integrity Goal: Skin integrity is maintained or improved Outcome: Progressing Problem: Neurological Deficit Goal: Neurological status is stable or improving Outcome: Progressing * Radames Hinkle MD - 11/16/2022 3:47 PM CDT Stroke Service Daily Progress Note Consuelo Darby Age: [age] year old Date of : 1980 Date of Admission: 10/19/2022 Hospital Day: 28 Subjective Consuelo Darby is a 41yo woman hemiplegic migraine,??GERD, GENESIS. who developed acute onset L sided weakness, L-sided sensory deficits, and dysarthria. L sided weakness resolved in route and dysarthriaimproved in route. On arrival patient noted to hae L gaze plasy, L hemainopsia, mild dysarthria, and extinction. NIHSS: 7. S/p TNK and ??TICI2b revascularization of the R MCA M1 occlusion.Repeat CTH showing edema in R MCA territory. On 10/20/22 patient taken for hemicraniectomy, post-op CTH showing stable midline shift. Initial hypercoag work up negative, repeat in 2 months. ?? -10/23- SARAH concerning for aortic cusp vegetations. [...] by GI team while evaluating her for G tube 11/01 CT A/P obtained and no abscess was identified in the abdominal area. Postsurgical changes after vascular surgery. ?? 11/02 GI to take her to OR for G tube. Ready TTF. 11/03 start warfarin bridge 11/04 CT head for headache and eye discomfort after bumping her head on hemicrani site. NSGY aware and evaluated her. CT looks stable. 11/05 had a fever. Infectious workup initiated and ID reconsulted. Plan to broaden spectrum (currently on ceftriaxone + vanc, switch to cefe + vanc + doxycycline ) after blood cultures are taken 11/06: no acute event. On heparin gtt. Warfarin bridge. INR 1.4. 11/10: underwent gastric erosion for abscess underlying peg by ACS 11/12: vanc d/c for concerns abt drug fever 11/15: LP results negative. ?? Interval History: No acute overnight events. CTAP today. Objective Patient Vitals for the past 24 hrs: BP Temp Temp src Pulse Resp SpO2 11/16/22 1513 114/54 -- -- -- -- -- 11/16/22 1003 111/59 -- -- 91 -- -- 11/16/22 0811 118/62 98.1 ??F (36.7 ??C) Oral 96 -- 96 % 11/16/22 0317 116/63 98.7 ??F (37.1 ??C) -- 101 16 96 % 11/16/22 0012 109/57 98.5 ??F (36.9 ??C) -- 102 16 96 % 11/15/22 2129 122/55 -- -- 102 -- -- Intake/Output Summary (Last 24 hours) at 11/16/2022 1547 Last data filed at 11/16/2022 1003 Gross per 24 hour Intake 150 ml Output 2800 ml Net -2650 ml Exam: Cortical Function Mental Status Awake, alert, follows basic commands Orientation REYNOLD Language No verbal output??but family says she spoke words to them Visual Powell Intact bilaterally to confrontation Neglect No visual neglect noted, no tactile neglect noted ?? Cranial Nerves II Pupils 3 mm and bilaterally reactive to light. Fundoscopic exam not performed. VIII Hearing is intact bilaterally to voice. III/IV/ Extraocular muscles intact. No diplopia, ptosis, nystagmus or convergence abnormalities noted. IX/X REYNOLD V REYNOLD XI Head turning and shoulder shrug are intact. VII L facial palsy XII Tongue is midline with normal movements and no atrophy noted. ?? Motor Function Movement No abnormalities noted Bulk No abnormalities noted Tone No abnormalities noted ?? Moves RUE and RLE 4/5 strength, tries to withdraw to pain in LUE and LLE 2/5 in left side ?? Sensory Light Touch Symmetric and intact bilaterally Noxious Stimuli Symmetric and intact bilaterally ?? Labs: Recent Labs Component Name 11/16/2221611/15/2221111/14/2223810/23/22 01210/22/22 0153 WBC 7.3 5.5 4.7 - - RBC 3.49* 3.51* 3.47* - - HGB 10.1* 10.0* 9.9* - - HCT 32.6* 32.6* 32.8* - - PLT - - - - 199 - = values in this interval not displayed. Recent Labs Component Name 11/16/2221611/15/2221111/14/22238 NA 139 137 140 CL 104 103 104 CO2 27 26 25 BUN 13 12 11 CREATININE 0.57 0.50* 0.51* CALCIUM 8.8 8.6 8.6 No results for input(s): MG in the last 09302 hours. Recent Labs Component Name 11/16/2221611/15/2221111/14/22238 PHOS 3.5 3.0 3.5 Recent Labs Component Name 11/16/2221611/15/2221111/14/22238 PT 13.9 14.3 15.9* INR 1.1 1.1 1.3 PTT 26.0 28.2 45.9* No results for input(s): A1C in the last 16409 hours. Recent Labs Component Name 10/20/22 0302 06/15/22 0757 CHOL 173 204* HDL 42 37* LDLCALC 91 117* TRIG 201* 251* Recent Labs Component Name 11/13/22 0210 TSH 5.706* Recent Labs Component Name 11/13/22 1534 CKTOTAL 57 US ABDOMEN LTD W COMP DOPPLER Result Date: 11/14/2022 PROCEDURE: US ABDOMEN LTD W COMP DOPPLER DATE/TIME OF EXAM: 11/14/2022 9:24 AM CLINICAL INFORMATION: None relevant/not provided if blank. Indication: R74.01: Transaminitis COMPARISON: CT abdomen pelvisdated 11/09/2022. FINDINGS: Abdomen: The liver is normal in echotexture and echogenicity with smoothsurface contour. No discrete hepatic mass or intrahepatic biliary dilatation is seen. The gallbladder is absent. The common bile duct measures 7 mm, likely representing reservoir effect in a postcholecystectomy state. The right kidney measures 10.8 x 5.3 x 4.3 cm. Limited views of the right kidney reveal no evidence of nephrolithiasis or hydronephrosis. The spleen measures 9.3 cm in length. The vi sible pancreas is normal in echogenicity. No ascites [...] cholecystectomy. > Dictated by Miranda Bowen MD (resident services coordinator). > Dictated by Miranda Bowen (Human Resources Compensation Analyst) 11/14/2022 9:18 AM HEATHER Ornelas MD have personally reviewed and interpreted this examination/study. > Interpreting Provider: HEATHER FREGOSO MD on 11/14/2022 9:54 AM XR CHEST 1VW PORTABLE Result Date: 11/13/2022 PROCEDURE: XR CHEST 1VW PORTABLE, DATE/TIME OF EXAM: 11/12/2022 8:45 PM, LOCATION [facility] INDICATION: R50.9: Fever, unspecified fever cause ADDITIONAL [...] abnormality. Report dictated by Agnes Olmos DO (resident services coordinator). I, Pepe Gonzalez MD have p ersonally reviewed and interpreted this examination/study. > Interpreting Provider: Pepe Gonzalez MD on 11/13/2022 11:59 AM MRI BRAIN WWO CONTRAST Result Date: 11/10/2022 PROCEDURE: MRI BRAIN WWO CONTRAST, DATE/TIME OF EXAM: 11/09/2022 11:51 PM, LOCATION [facility] INDICATION: R50.9: Fever, unspecified fever cause ADDITIONAL [...] enhancement along the soft tissues surrounding the extra- axial collection Redemonstration of extensive cytotoxic edema in the right frontotemporoparietal regions, the right insula, and the right basal ganglia, extending along the martínez radiata /right centrum semiovale compatible with evolving acute rightMCA territory infarction. Some of these lesions show persistent restricted diffusion including basal ganglia and the right periventricular white matter suggesting evolving infarction. There is persistent local mass effect on the right cerebral hemisphere with effacement of the overlaying sulci, mild external herniation of the infarcted brain through the craniectomy defect. Interval resolution of effacement of the right lateral ventricle and the [id number] midline shift. Extensive susceptibility artifacts along the [...] CT suggesting evolving cortical laminar necrosis. Interval resolutionof restricted diffusion along small areas of, left [...] stable. The visualized portions of the orbits appeargrossly unremarkable. No significant opacification of the paranasal or mastoid air cells.. Normal flow voids are demonstrated in the carotid arteries and basilar artery. The calvarium and visualized cervical spine otherwise appear normal. IMPRESSION: 1. Redemonstration of postsurgical changes from right decompressive hemicraniectomy andevolving large volume right MCA territory infarct as described above. Mild interval increase in thecaliber of lateral and third ventricles could be secondary to decreased mass effect, less likely hyd rocephalus, continued attention recommended on follow-up. 2. Interval [...] the extra-axial fluid collection overlying the craniectomy sitecould be secondary to evolving blood products/postsurgical changes versus secondary to superimposedinfection, clinical correlation is recommended. These findings were discussed with patient's care provider, Dr. Tucker, stroke team, by on 11/10/2022 11:59 AM with read back verification. > Interpreting Provider: Oriana Suarez MD on 11/10/2022 12:[address] ABDOMEN PELVIS W CONTRAST Result Date: 11/10/2022 PROCEDURE: CT ABDOMEN PELVIS W CONTRAST DATE/TIME OF EXAM: 11/09/2022 4:49 PM CLINICAL INFORMATION: None relevant/not provided if blank. 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 TECHNIQUE: CT of the abdomen and pelvis was performed following intravenous contrast utilizing standard protocol. CT dose reduction technique was used, including Automated Exposure Control. CONTRAST: IOPAMIDOL 76 % IV SOLN:100 mL FINDINGS: Lung bases are clear. Liver is normal. The gallbladder is absent. The spleen is normal. The pancreas is normal. There is a duodenal diverticulum. Both adrenal glands are normal. Both kidneys enhance symmetrically with no hydronephrosis. T he urinary bladder is decompressed with a Puentes catheter. Uterus is normal. A gastrostomy tube is present. There is a 2 cm rim-enhancing collection along the inferior aspect of the gastrostomy tube with small locule of gas seen on series 6 image 67 measuring 2.2 cm. There is no bowel obstruction. There is progressive soft tissue stranding with a mass in the right groin measuring 4 cm with small locules of gas, likely inflammatory mass. There is mass effect on the right femoral artery with mild narrowing as marked narrowing of the femoral vein, encased by the collection. Abdominal aorta is normal in caliber. The portal vein is patent. No suspicious osseous lytic or blastic lesion. IMPRESSION: 1. Progressive soft tissue stranding with gas in the right inguinal region with an inflammatory mass encasing the right femoral vessels with mild narrowing of the femoral artery and moderate narrowing of the femoral vein. This could represent a postsurgical hematoma. Recommend correlation with symptoms and signs of superinfection. 2. Interval placement of a gastrostomy tube with a small gas and fluid collection along the inferior aspect of the gastrostomy tube insertion site and stomach, measuring 2.2 cm. Findings communicated with Dr. Goyal at 2005 hours on 11/09/2022 > Interpreting Provider: Pepe Gonzalez MD on 11/10/2022 12:[address] ANGIO CHEST PULM EMBOLISM Result Date: 11/07/2022 PROCEDURE: CT ANGIO CHEST PULM EMBOLISM, DATE/TIME OF EXAM: 11/07/2022 5:25 PM, LOCATION [facility] INDICATION: R50.9: Fever, unspecified fever cause ADDITIONAL CLINICAL INFORMATION:Ordering Provider Reason For Exam: PE, fever COMPARISON: CT chest abdomen pelvis with contrast dated 10/25/2022. TECHNIQUE: CT of the chest was performed following the uneventful administration of 100mL of Isovue 370 intravenous contrast according to [...] suspicious pulmonary nodules are identified. No pleural fluidor pneumothorax is present. Heart and Pericardium: The cardiac chambers are normal in size. No pericardial fluid or thickening is present. There is no radiographic evidence of right heart strain. Mediastinum and Isabel: No enlarged lymph nodes are present. Bones and Chest Wall: Bone windows demonstrate no suspicious lytic or blastic lesions. The visible osseous structures are intact. Upper Abdomen:The visible portions of the upper abdominal organs are normal. Impression: 1.No evidence of acute pulmonary embolism. There is no radiographic evidence of right heart strain. 2.No other acute process within the chest. > Dictated by Tim Major MD (resident services coordinator). I, Alexx Lopez have personally reviewed and interpreted this examination/study. > Interpreting Provider: Alexx Lopez on 11/07/2022 10:30 PM ECHO COMPLETE Result Date: 11/07/2022 ??? Left??Ventricle: Left ventricle size is normal. EDV Index BP is 55.3 mL/m2. ESV Index BP is 18.3 mL/m2. Normal wall thickness. LVPWd is 1.01 cm. Ventricular mass is normal. Mass index 2D is 61.25g/m2. Normal systolic function with a visually estimated EF of 65 - 70%. EF by 2D Abarca biplane is 67%. Normal wall motion. Normal diastolic function. Normal mean left atrial pressure. Tissue Doppler velocity is reduced. MV peak E velocity is 102.695 cm/s. MV e' lateral velocity is 14.141 cm/s. MV e' septal velocity is 10.702 cm/s. ??? Right ventricle size is normal. Normal free wall thickness.RV wall thickness is 0.5 cm. Normal wall [...] mmHg). IVC is normal in size. SVC wasnot assessed. ??? Estimated sPAP is 23.0 mmHg. Estimated RVSP is 23.0 mmHg. RAP is 3.0 mmHg. Mean PA pressure of 15 mmHg. PVR < 1.5 Wood units. ? ? Normal valve morphology nd function. ? ? No pericardial effusion. ??? Normal sized annulus, sinus of Valsalva (aortic root), ascending aorta, aorticarch, descending aorta and abdominal aorta. Normal echocardiogram by 2D, m-mode, color and spectralDoppler echocardiography. IR INTRACRANIAL MECH THROMBECT Result Date: 11/07/2022 PROCEDURE: IR INTRACRANIAL MECH THROMBECT DATE/TIME OF EXAM: 10/19/2022 10:41 AM Procedure: CerebralAngiogram and Mechanical Thrombectomy for Acute Stroke Comparison Study: History: 41 year oldwith GERD, tobacco, p/w left sided neglect both sensory and visual, LWK 6:30, s/p TNK. CTA 1 M1 occlusion.Will take to IR for a mechanical thrombectomy. Notification Time: 8:21 NIHSS Score: 6 ASPECTS: 9 In-room: 8:48 Puncture Time: 8:53 Location of Clot: R M1 MCA Initial TICI: 0 Time to Clot: 9:37 Time to Reperfusion: 9:54 Final TICI: 2b Pit Slagman: Dr. Mitali Walter Meteorologist In Charge(s): Isak Monte Vessels: Ultrasound Guided Access of Femoral Artery Ultrasound Guided Access of Radial Artery Arterial line placement in the right radial artery Right Common Carotid Artery Angiogram: Cerebral Intracranial Catheterization Mechanical Thrombectomy with Retrievable Stent and Reperfusion Catheter Angiography Through the Existing Catheter Right Femoral Artery Angiogram Anesthesia: General Anesthesia was performed and monitored by an attending Anesthesiologist and their technical services assistant throughout the entirety of the case Procedural Detail: The risks, benefits, and alternatives to procedure were discussed in detail with the patient and her family. These included but were not limited to the risk of blood loss, vessel injury, stroke, renal injury, and contrast allergy. The patient was brought to the biplane a ngiography suite where she underwent prep and drape procedures. Limited ultrasound of the right radial artery demonstrated a patent vessel. A 5 new zealander sheath was placed in the radial artery and was used as an arterial line. Limited ultrasound of the common femoral artery demonstrated a patent vessel. The take off of the profunda and other arteries were identified. A scott scale image was documented. The right common femoral artery was accessed using a micropuncture needle. The needle entry was documented. Following a series of exchanges, a 8 Russian sheath sheath was placed in the right femoralartery. A Guide and a 6 Russian [employer] Select Serrano 2 catheter along with a stiff 0.035 Glidwirewas navigated into the aortic arch. The catheter was used to select brachiocephalic artery followedby the right common carotid artery and finally [...] then removed from the arterial system. After 5min were allowed to elapse for maximal [...] system. Hemostasis was achieved using a 8 Russian Angio-Seal closure device. Hemostasis was immediate at [...] revascularization on the MCA territory was visualized. Impression: 1. TICI2b revascularization of the R MCA M1 occlusion. Location of Clot: Right M1 segment Initial TICI: 0 Final TICI: 2b I, Dr. Jim Walter, was present and performed/supervised theentire procedure. IJim MD have personally reviewed and interpreted this examination/study. > Interpreting Provider: Jim Walter MD on 11/07/2022 9:21 AM XR ABDOMEN KUB PORTABLE Result Date: 11/06/2022 PROCEDURE: XR ABDOMEN KUB PORTABLE, DATE/TIME OF EXAM: 11/05/2022 5:28 PM, LOCATION [facility] INDICATION: R50.9: Fever, unspecified fever cause ADDITIONAL [...] pattern. Report dictated by Mc Castro MD, (resident services coordinator). I, Pepe Gonzalez MD have personally reviewed and interpreted this examination/study. > Interpreting Provider: Pepe Gonzalez MD on 11/06/2022 10:[address] HEAD WO CONTRAST Result Date: 11/05/2022 PROCEDURE: CT HEAD WO CONTRAST DATE/TIME OF EXAM: 11/05/2022 12:11 AM CLINICAL INFORMATION: None relevant/not provided if blank. 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 CT dose reduction technique was used, including Automated Exposure Control. FINDINGS: Redemonstration of postsurgical changes from decompressive right frontal parietotemporal craniectomy. Unchanged herniation of the right frontoparietal and temporal lobes through the craniectomydefect. Unchanged evolving large right MCA territory infarction involving the right frontal parietal and temporal lobes. 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 No significant midline shift. Unchanged ex vacuo dilation of the right lateral ventricle. There is interval increase in cortical hyperdensity involving the right parietal, frontal lobes (image 11, 12, 14, series 3). Extra-axial fluid collection overlying the herniated right cerebral convexity measuring 1.5 cm in thickness, not significantly changed compared to prior study. No interval change in the scott- white matter differentiation. No significant opacification of the mastoid or paranasal sinuses. No acute soft tissue findings or calvarial findings. IMPRESSION: 1. Redemonstration of post surgical changes from decompressive hemicraniectomy and evolving large right MCA territory subacute infarct. Interval increased linear hyperdense foci along thecortex of right frontal and parietal lobes could be secondary to evolving cortical laminar necrosisversus developing petechial hemorrhages. Continued attention recommended on short-term follow-up. However no hematoma noted. No evidence of midline shift. These findings were discussed with patient'scare provider, Dr. Roth with neurology, by on 11/05/2022 5:46 PM with read back verification. > Interpreting Provider: Oriana Suarez MD on 11/05/2022 5:48 PM XR CHEST 1VW PORTABLE Result Date: 11/05/2022 PROCEDURE: XR CHEST 1VW PORTABLE, DATE/TIME OF EXAM: 11/05/2022 9:38 AM, LOCATION [facility] INDICATION: R50.9: Fever, unspecified fever cause ADDITIONAL CLINICAL INFORMATION: Ordering Provider Reason For Exam: consolidation COMPARISON: Chest radiograph 10/29/2022. FINDINGS/IMPRESSION: Previously seen feeding tube has been removed. These no confluent consolidation, pleural effusion, or pneumothorax is noted. The cardiomediastinal silhouette is stable. No acute osseous abnormality is noted. Report dictated by Christopher Tobin MD, MD (resident services coordinator). I, HEATHER FREGOSO MD have personally reviewed and interpreted this examination/study. > Interpreting Provider: HEATHER FREGOSO MD on 11/05/2022 2:[address] ABDOMEN WO CONTRAST Result Date: 11/02/2022 PROCEDURE: CT ABDOMEN WO CONTRAST, DATE/TIME OF EXAM: 2022 6:47 PM, LOCATION [facility] INDICATION: Z93.1: Presence of externally removable percutaneous endoscopic gastrostomy(PEG) tube (CMS/HCC) ADDITIONAL CLINICAL INFORMATION: Ordering Provider [...] administration. Lines/tubes: *Interval placement of a percutaneous gas trostomy tube with intraluminal placement of tip and inflated balloon within the body/antrum of thestomach. Liver: Within the limitations of a noncontrast examination, the liver is unremarkable. Gallbladder and Bile Ducts: The gallbladder surgically absent with multiple surgical clips noted withinthe gallbladder fossa. Spleen: Normal. Pancreas: Normal. Adrenals: [...] queried.. > Dictated by Tim Major MD (resident services coordinator). I, Pepe Gonzalez MD have personallyreviewed and interpreted this examination/study. > Interpreting Provider: Pepe Gonzalez MD on 11/02/2022 1:[address] ABDOMEN PELVIS W CONTRAST Result Date: 10/31/2022 PROCEDURE: CT ABDOMEN PELVIS W CONTRAST, DATE/TIME OF EXAM: 10/31/2022 10:16 AM, LOCATION [facility] INDICATION: I33.0: Aortic valve vegetation ADDITIONAL CLINICAL INFORMATION: Ordering Provider Reason For Exam: abscess? Technologist Note: Additional: COMPARISON: CT chest abdomen and pelvis 10/25/2022. TECHNIQUE: CT of the abdomen and pelvis was performed following the uneventful administration of 100 mL of Isovue 370 intravenous contrast according to standard protocol. Findings: Lower Chest: Bibasilar subsegmental atelectasis present. Liver: Normal. Gallbladder and Bile Ducts: The gallbladder is absent. Spleen: Normal. Pancreas: Normal. Adrenals: Normal. Kidneys: Normal. Bladder: A Puentes catheter terminates within a decompressed urinary bladder. Gastrointestinal: Enteric tube terminates in the stomach. Duodenal diverticulum present. The stomach and visualized loops of large and small bowel are otherwise unremarkable. Normal appendix. Mesentery/Peritoneum/Retroperitoneum: Normal. Reproductive Organs: The uterus is normal. Vasculature: There is been interval postsurgical changes to the right common femoral/external iliac artery region with previously seen thrombus in this region no longer visualized. There is however irregularity of the distal right external iliacand proximal right common femoral artery and mild narrowing in this region likely resenting postsurgical changes. Questionable flap in the proximal common femoral artery (series 3 image 153). Bones: Bone windows demonstrate no suspicious lytic or blastic lesions. The visible osseous structures are intact. Soft tissues: There is extensive soft tissue stranding edema and fluid throughout the right groin with multiple foci of subcutaneous gas along likely represent post surgical changes. Although there is focal fluid was prominent at series 3, image 153 in this region no rim- enhancing drainable fluid collections are appreciated at this time. Impression: 1.Interval postsurgical changes to the distal right external iliac/proximal right common femoral arteries with previously seen thrombus in this region no longer visualized. There is however irregularity of the artery in this region with mild narrowing which is favored to represent postsurgical changes. Questionable flap within the proximal common femoral artery as detailed above. 2.Extensive soft tissue stranding, edema and fluid along with subcutaneous gas in the right groin likelyrepresenting postsurgical changes. Although there is focal fluid in this region, no rim-enhancing drainable fluid collections are appreciated at this time. > Interpreting Provider: Alexx Lopez on 10/31/2022 11:[address] HEAD WO CONTRAST Result Date: 10/31/2022 EXAM: CT HEAD WO CONTRAST, DATE/TIME OF EXAM: 10/30/2022 8:22 PM, LOCATION: [facility] HISTORY: I63.511: Right middle cerebral artery stroke (CMS/HCC) ADDITIONAL CLINICAL INFORMATION: Ordering Provider Reason For Exam: Heparin supratherapeutic bleed follow up. EXAMINATION: CT scan of the head without intravenous contrast TECHNIQUE: CT of the head was performed without intravenouscontrast according to standard protocol. CT dose reduction technique was used, including Automated Exposure Control. COMPARISON: Head CT 10/28/2022. Brain MRI 10/24/2022. FINDINGS: See impression. IMPRESSION: Compared to prior head CT 10/28/2022: 1.Re-demonstrated postsurgical changes of decompressive right frontoparietotemporal craniectomy with multiple overlying scalp carla. Evolving heterogeneous subdural hematoma along the right frontotemporal convexity measuring up to 8 mm in maximal thickness (5/32), previously measuring up to 9 mm in thickness. 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 Increased conspicuity of a thin hyperdensity along the cortex within this region suggestive of evolving cortical laminar necrosis. 3.Re-demonstrated small hypodensity of the left inferior frontal gyrus/frontal operculum, consistent with an evolving kszctmbl-be-[id number] infarct. 4.No significant midline shift. Similar-appearing size and configuration of the ventricles without evidence of hydrocephalus. Basal cisterns are patent. 5.No other convincing change. Partially imaged left nasoenteric tube. > Interpreting Provider: Amanda Real MD, PhD on 10/31/2022 1:26 AM [facility] ANGIO TEAM Result Date: 10/30/2022 Fluoroscopy was used for this exam in the OR. Please see the Operative report. XR CHEST 1VW PORTABLE Result Date: 10/29/2022 PROCEDURE: XR CHEST 1VW PORTABLE, DATE/TIME OF EXAM: 10/29/2022 10:29 AM, LOCATION [facility] INDICATION: R09.02: Hypoxia ADDITIONAL CLINICAL INFORMATION: Ordering Provider Reason For Exam: evaluate for hypoxia COMPARISON: Chest x-ray from 10/27/2022 FINDINGS/IMPRESSION: Enteric tube is seen coursing over the diaphragm without visualization of the distal tip. There is no focal consolidation, pleural effusion, or pneumothorax. The cardiomediastinal silhouette is normal. Report dictated by Jacques Russell DO (resident services coordinator). Jacques Ornelas DO have personally reviewed and interpreted this examination/study. 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 Report dictated by Jacques Russell DO (resident services coordinator). Jacques Ornelas DO have personally reviewed and interpreted this examination/study. 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 FINDINGS/IMPRESSION: Enteric tube courses below the diaphragm with the distal tip superimposing the antropyloric region. Report dictated by Martell Shetty MD (resident services coordinator). I, Jacques Cole DO have personally reviewed and interpreted this examination/study. > Interpreting Provider: Jacques Cole DO on 10/28/2022 12:[address] HEAD WO CONTRAST Result Date: 10/28/2022 PROCEDURE: CT HEAD WO CONTRAST, DATE/TIME OF EXAM: 10/28/2022 5:28 AM, LOCATION [facility] INDICATION: Z91.89: At high risk for bleeding after thrombolytic therapy monitor for hemorrhagic bleed given heparin use in massive stroke EXAMINATION: Computed tomography (CT) of the head without contrast TECHNIQUE: CT of the head was performed without contrast according to standard protocol. CT dose reduction technique was used, including Automated Exposure Control. COMPARISON: CT head without contrast dated 10/27/2022 FINDINGS: Redemonstrated are postoperative changes of decompressiveright frontoparietotemporal craniectomy, with multiple overlying scalp carla. Redemonstrated slightly heterogeneous subdural hemorrhage along the right frontotemporal convexity measuring 9 mm in the maximal thickness (series 3 image 17), without significant change compared to prior study. Redemonstrated evolving right MCA infarct. There is moderate mass effect on the right lateral ventricle. There is again associated mild external herniation through the craniectomy site. Unchanged gyriform hyperdensity within the infarcted area which may represent laminar necrosis. Small volume of subarachnoid hemorrhage cannot be completely ruled out. No new acute intracranial hemorrhage. The ventricles are mildly dilated compared to 10/19/2022, otherwise unchanged compared to 10/27/2022. The basal cisterns are patent. No midline shift is seen. Unchanged small focus of hypoattenuation in the left frontal lobe (series 3 image 20) likely represents a small subacute infarct. Partially visualized nasogastric tube. The visualized portions of the orbits, paranasal sinuses, and mastoids appear normal. No acute calvarial fracture is identified. IMPRESSION: 1. Evolving right MCA subacute infarct status post decompressive craniectomy. Grossly unchanged right frontotemporal subdural hemorrhage. Grossly unchanged gyriform hyperdensity in the infarcted area may represent subarachnoid hemorrhage. No midline shift. Unchanged mildly dilated ventricles may represent mild hydrocephalus. 2. Unchanged small focus of hypoattenuation in the left frontal lobe likely represents additional subacute infarct. The report is dictated by Kayla Stevenson MD (resident services coordinator) 1 I, Lonnie Rae MD have personally reviewed and interpreted this examination/study. > Interpreting Provider: Lonnie Rae MD on 10/28/2022 9:15 AM XR CHEST 1VW PORTABLE Result Date: 10/27/2022 PROCEDURE: XR CHEST 1VW PORTABLE, DATE/TIME OF EXAM: 10/27/2022 10:19 AM, LOCATION [facility] INDICATION: D72.829: Leukocytosis, unspecified type ADDITIONAL CLINICAL INFORMATION: Ordering Provider Reason For Exam: any concern for pneumonia COMPARISON: Chest radiograph dated 10/25/2022. FINDINGS/IMPRESSION: Enteric tube courses below the diaphragm and out of the [id number]. RUQ surgical clips are present. No focal consolidation. No pleural effusion or pneumothorax. The cardiomediastinal silhouette is normal. Report dictated by Agnes Olmos DO (resident services coordinator). I, Pepe Gonzalez MD have personally reviewed and interpreted this examination/study. 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 COMPARISON: 10/26/2022. FINDINGS: Redemonstration of postoperative anisha nges of decompressive right cranioplasty. An evolving extra-axial hematoma is again noted in the craniotomy site. Small volume subarachnoid hemorrhage is is again seen in the right cerebral sulci. Again noted is herniation of the intracranial contents through the craniectomy defect. Again demonstrated is an evolving subacute infarct in the nearly entire right MCA distribution, grossly unchanged. There is persistent mass effect on the lateral ventricle. A small hypoattenuating focus is again noted in the left frontal lobe, which may represent a small subacute infarct. The ventricles are stable. The basal cisterns are patent. No midline shift. The scott-white matter differentiation is normal. The visualized portions of the orbits, paranasal sinuses, and mastoids appear normal. No acute calvarial fracture is identified. IMPRESSION: 1. Redemonstration of evolving right MCA subacute infarct, status post right decompressive craniectomy. The extra-axial hematoma underlying the craniectomy site and subarachnoid hemorrhage in the right cerebral sulci are grossly unchanged. Mass effect on the right lateral ventricle is unchanged. No significant midline shift. 2. Small focus of likely a subacute infarct in the left frontal lobe is unchanged. > Interpreting Provider: Lonnie Rae MD on 10/27/2022 12:10 PM XR CHEST 1VW PORTABLE Result Date: 10/26/2022 PROCEDURE: XR CHEST 1VW PORTABLE, DATE/TIME OF EXAM: 10/25/2022 9:41 AM, LOCATION [facility] INDICATION: I63.511: Right middle cerebral artery stroke (CMS/HCC) ADDITIONAL CLINICAL INFORMATION: Ordering Provider Reason For Exam: Atlectasis/mucus plugging Comparison: Chest x-ray from10/23/2022, and CT chest, abdomen, pelvis from same day FINDINGS/IMPRESSION: Interval removal of theendotracheal tube. Enteric tube courses below the diaphragm and out of the [id number]-[id number]. There is severe left rotation of the patient in this study. There is no focal consolidation, pleural effusion, or pneumothorax. The left upper lobe pulmonary nodule noted on chest CT from same day is not visualized on this plain film. The cardiomediastinal silhouette is normal. The visible bony thorax is intact. Report dictated by Royer Stovall MD (resident services coordinator). IAlexx have personally reviewed and interpreted this examination/study. > Interpreting Provider: Alexx Lopez on 10/26/2022 2:[address] HEAD WO CONTRAST Result Date: 10/26/2022 PROCEDURE: CT HEAD WO CONTRAST, DATE/TIME OF EXAM: 10/26/2022 4:55 AM, LOCATION [facility] INDICATION: I63.511: Right middle cerebral artery stroke ([facility]/HCC) ADDITIONAL CLINICAL INFORMATION: Ordering Provider Reason For Exam: monitor for any bleeds, patient on heparin drip post large ischemic stroke EXAMINATION: Computed tomography (CT) of the head without contrast TECHNIQUE: CT of the head was performed without contrast according to standard protocol. COMPARISON: Comparison ismade with a CT head dated 10/25/2022. FINDINGS: Redemonstration of postoperative changes of right decompressive hemicraniectomy. Redemonstration of large volume confluent acute infarct in the right MCA territory involving the right frontal parietal temporal and insular regions and basal ganglia. Redemonstration of mild herniation of the right frontoparietal and temporal regions through the craniectomy defect. Redemonstration of a curvilinear extra-axial/extracranial fluid collection overlying the right cerebral convexity containing debris and blood products, measuring about 7 mm in thickness not significantly changed compared to prior study. Redemonstration of linear foci of hyperdensity along the evolving infarct most likely secondary to prominent vasculature. No new hyperdense foci within the evolving infarct. No evidence of transtentorial or tonsillar herniation. Station a mass effectfrom the large evolving right MCA territory infarct with effacement of sulci, and effacement of theright lateral ventricle. There is a large area of recent infarction seen in the right hemisphere inthe MCA territory with associated mass effect and some effacement of the right lateral ventricle grossly unchanged from prior. There are foci of hypoattenuation consistent with small evolving subacute to acute infarcts within the left frontal lobe periventricular white matter and left martínez radiata extending up to the left frontal subcortical regions also unchanged compared to prior study. No new intracranial hemorrhage or intra- or extra-axial fluid collections are identified. The left lateral ventricle, third and fourth ventricles are of normal size, shape, and morphology. The basal cisterns are patent. Leftward midline shift is approximately 2 mm as measured at the foramen of Monro, unchanged from yesterday. The visualized portions of the orbits, paranasal sinuses, and mastoids appearnormal. No acute calvarial fracture is identified. Partially visualized nasal tube IMPRESSION: 1. Redemonstration of evolving large right MCA territory acute to subacute infarct without definite evidence of hemorrhagic transformation. Unchanged minimal leftward midline shift of about 2 mm at the level of foramen of Monro and effacement of the left lateral ventricle. 2. Redemonstration of postsurgical changes from right-sided decompressive hemicraniectomy, unchanged compared to prior study. These results were discussed with stroke resident Dr Mendez by Dr. Miranda Bowen at8:05 AM on 10/26/2022 with read back confirmation and closed-loop communication. The report is dictated by Miranda Bowen MD (resident services coordinator) I, Oriana Suarez MD have personally reviewed and interpreted this examination/study. > Interpreting Provider: Oriana Suarez MD on 38:[address] CHEST ABDOMEN PELVIS W CONT Result Date: 10/25/2022 PROCEDURE: CT CHEST ABDOMEN PELVIS W CONT, DATE/TIME OF EXAM: 10/25/2022 12:56 PM, LOCATION [facility] INDICATION: I63.511: Right middle cerebral artery stroke [...] Neck and Axillae: Normal. Lungs: Subsegmental atelectasis ofthe posterior lungs. No pleural fluid or pneumothorax is present. There is a 3 mm nodule in the left upper lobe (image 47 series 5). Heart and Pericardium: The cardiac chambers are normal in size. Nopericardial fluid or thickening is present. Mediastinum and [...] groin. Subcutaneous gas in the lower left anteriorabdominal wall related to subcutaneous injections. Impression: 1.Occlusion [...] verification. > Dictated by Clarisa Cantrell MD (resident services coordinator). IAlexx have personally reviewed and interpreted this examination/study. 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 COMPARISON: Comparison is made with brain MR [address] head dated 10/23/2022 FINDINGS: There are postoperative ch anges of right hemicraniectomy. There is soft tissue thickening and skin carla overlying the operative defect. There is curvilinear fluid collection collection overlying the right cerebral convexity within the craniectomy defect containing some recent blood products and which measures approximately 22 mm in maximum thickness. There is a large area of recent infarction in the right cerebral hemisphere in the distribution in the distribution of the right middle cerebral artery. Mass effect is produced by this. There is a small amount of midline shift right to left of roughly 2 mm at the levelof the foramen of Monro. There is some compression of the right lateral ventricle. The left lateral ventricle, third, and fourth ventricles are normal in size. There are foci of decreased attenuationconsistent with small recent infarcts within the left frontal lobe and left martínez radiata. Bone window images demonstrate no signal suspicious lytic or blastic lesions. When today's study is compared to the parenchyma of 24 October [address] 23 October, there may be slightly less mass effectand midline shift on today's study and the fluid collection within the craniectomy defect overlyingthe lateral right cerebral hemisphere is slightly smaller. There has been interval removal of the drainage tube that was present within the craniectomy defect on previous brain CT and there is less ai r/gas within the operative defect relative to the previous brain CT. IMPRESSION: Redemonstrated postoperative changes consistent with right calvarial hemicraniectomy. Fluid collection overlying the lateral right cerebral hemisphere within the craniectomy defect containing some recent blood products. The overall size of this fluid collection is less than on previous study. In addition, there is less air/gas within this defect. Evolving large recent right cerebral hemisphere infarct with mass effect and approximately 2 mm of midline shift right to left. There appears to be slightly less mass effect and midline shift on today's study. Continued follow-up is recommended. Small recent cortical infarct in the lateral left frontal lobe as well as small recent infarc t in left martínez radiata which appears similar to previous study. Clinical correlation recommended.The report is dictated by Miranda Bowen MD (resident services coordinator) I, Joni Fabian MD have personally reviewed and interpreted this examination/study. > Interpreting Provider: Joni Fabian MD on 10/25/2022 2:[address] CARDIAC ANGIO STRUCT MORPH Result Date: 10/25/2022 PROCEDURE: CT CARDIAC ANGIO STRUCT MORPH, DATE/TIME OF EXAM: 10/23/2022 3:08 PM, LOCATION [facility] INDICATION: I63.411: Acute cerebrovascular accident (CVA) due to embolism of right middle cerebral artery (CMS/HCC) ADDITIONAL CLINICAL INFORMATION: Ordering Provider Reason For Exam: L atrial valve vegetations Technologist Note: Additional: COMPARISON: None. Procedure: CT structure and morphology with intravenous contrast material, including 3D image post-processing Acquisitionmode: Retrospective ECG gated. Contrast type and volume:Isovue .100 mL. Complications: None.. Imagequality: Good signal noise. There is motion artifact Heart rate: 99 bpm. Coronaries: The coronary arteries are not completely visualized due to motion artifact given the increase heart rate. Within the limitations, coronary arteries are normal in course and morphology and patent without calcification or plaque. Other cardiac findings: Left Atrium: The left atrium is normal size with no left atrial appendage filling defects. Left Ventricle: The ventricular cavity [...] the available limited view of the abdomen. Impression: 1. 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 2. Patent coronary vessels within the limitation of the motion artifact given the elevated heart during this exam > Interpreting Provider: Pepe Gonzalez MD on 10/25/2022 12:03 AM XR ABDOMEN KUB PORTABLE Result Date: 10/24/2022 PROCEDURE: XR ABDOMEN KUB PORTABLE, DATE/TIME OF EXAM: 10/24/2022 2:04 PM, LOCATION [facility] INDICATION: R47.1: Dysarthria ADDITIONAL CLINICAL INFORMATION: Ordering Provider ReasonFor Exam: ngt placement COMPARISON: Portable KUB dated 10/23/2022 FINDINGS/IMPRESSION: The enteric tube courses below the diaphragm with tip superimposing the gastric pyloric region. Drafted by Agnes Olmos DO (resident services coordinator). I, Vanessa Kumar MD have personally reviewed and interpreted this examination/study. > Interpreting Provider: Vanessa Kumar MD on 10/24/2022 2:17 PM MRI BRAIN WWO CONTRAST Result Date: 10/24/2022 PROCEDURE: MRI BRAIN WWO CONTRAST, DATE/TIME OF EXAM: 10/24/2022 10:56 AM, LOCATION [facility] INDICATION: I63.411: Acute cerebrovascular accident (CVA) due to embolism of right middle cerebral artery (CMS/HCC) ADDITIONAL CLINICAL INFORMATION: Ordering Provider Reason For Exam: Stroke workup Technologist Note: Does the patient have a defibrillator, pacemaker, aneurysm clips or implanted mechanical devices?->No Does the patient have metal implants or stents?->No Additional: None. EXAMINATION: Magnetic resonance imaging (MRI) of the brain without and with contrast CONTRAST: GADOBUTROL 1 MMOL/ML IV SSM SO:9.5 mL TECHNIQUE: MRI of the brain was performed prior to and following the uneventful administration of 9.5 mL intravenous GADAVIST contrast according to standard protocol. COMPARISON: CT of the head from 10/23/2022. FINDINGS: Redemonstration of postoperative changes of decompressive right hemicraniectomy with expected interval evolution of the previously seen post surgical changes along the craniectomy site. Redemonstration of extra-axial collection along the craniectomy site containing extra-axial blood products and fluid, measuring approximately 2.4 cm in thickness, (series 9, image 13), previously measured approximately 2.5 cm, grossly unchanged from prior. Interval resolution/redistribution of the previously seen foci of pneumocephalus compared to the prior CT. Interval removal of the previously seen right intracranial pressure monitor. Redemonstration of extensive cytotoxic edema in the right frontotemporoparietal regions, the right insula, and the right basal ganglia, extending along the martínez radiata and the marginally along the lateral aspect of the right centrum semiovale compatible with evolving acute right MCA territory infarction. There is persistent local mass effect on the right cerebral hemisphere with effacement of the overlayingsulci, mild external herniation of the infarcted brain through the craniectomy defect, effacement of the right lateral ventricle, and approximately 3-4 mm euuql-my-uqza midline shift at the level of the foramen of Monro, (series 13, image 18),, previously measured approximately 3 mm, (series 6, image 35), when remeasured, grossly similar to the prior. Extensive susceptibility artifacts along the craniectomy site compatible with expected postsurgical changes. There are additional scattered foci of restricted diffusion in the left frontoparietal region, extending along the subcortical white matter of the lateral left frontal lobe, the right martínez radiata, and the centrum semiovale, compatible with a small evolving acute to subacute infarcts. Otherwise, no new intracranial hemorrhage is identified. The ventricular caliber appears grossly stable compared to the prior. For reference, the diameter of the left ventricular trigone measures approximately 1.2 cm, (series 4, image 33), previously measured approximately 1.3 cm, (series 4, image 19). The basal cisterns are mildly effaced. The re maining ventricles are of normal size, shape, and morphology. Diffuse leptomeningeal enhancement along the right frontotemporoparietal infarcted area compatible with expected reactive changes. No enhancing lesions are otherwise identified. The corpus callosum and sella appear normal. The posterior fossa, brainstem, and craniocervical junction appear grossly stable. The visualized portions of the orbits appear grossly unremarkable. There is mild paranasal sinus disease. There is suspected minimal opacification in the right mastoid air cells. The remaining mastoid air cells appear grossly clear. Normal flow voids are demonstrated in the carotid arteries and basilar artery. The calvarium and visualized cervical spine otherwise appear normal. IMPRESSION: 1.Redemonstration of postoperative changes of a right hemicraniectomy with expected postsurgical changes as outlined above. 2.Redemonstration of evolving large right MCA territory infarction with extensive cytotoxic edema and mild external herniation of the brain through the craniectomydefect. Persistent local mass effect on the right cerebral hemisphere, effacement of the right lateral ventricle, and approximately 3-4 mm szpdl-tf-[id number] midline shift, grossly similar to the prior. 3.Mild dilation of the left lateral ventricle may represent subtle left ventricular entrapment, overall grossly similar to prior. 4.Additional multiple foci of abnormal diffusion within the left frontotemporal lobes with associated T2 FLAIR hyperintensity representing additional small acute to subacute infarcts, likely of cardioembolic etiology. Findings communicated to Dr. Mohr by Dr. Major at 1138 hours on 10/24/2022 with readback comprehension and verification. Report dictated by Tim Major MD (resident services coordinator). IJasper MD have personally reviewed and interpreted this examination/study. > Interpreting Provider: Jasper Sifuentes MD on 10/24/2022 1:59 PM XR CHEST 1VW PORTABLE Result Date: 10/24/2022 PROCEDURE: XR CHEST 1VW PORTABLE, DATE/TIME OF EXAM: 10/23/2022 8:24 AM, LOCATION [facility] INDICATION: I63.511: Right middle cerebral artery stroke (CMS/HCC) ADDITIONAL CLINICAL INFORMATION: Ordering Provider Reason For Exam: OETT position COMPARISON: Chest radiograph dated 10/21/2022 FINDINGS/IMPRESSION: The enteric tube courses below the diaphragm out of the inferior gidrz-oe-[id number]. Endotracheal tube terminates in the midthoracic trachea. There is no focal consolidation. No pleural effusion or pneumothorax. The cardiomediastinal silhouette is normal. No acute osseous abnormality. Report dictated by Agnes Olmos DO (resident services coordinator). IVanessa MD have personally reviewed and interpreted this examination/study. > Interpreting Provider: Vanessa Kumar MD on 10/24/2022 1:03 PM ECHO SARAH Result Date: 10/24/2022 ??? Aortic??Valve: Valve structure is normal. There is a 6 x 7 mm independently mobile mass on the left coronary cusp. Differential includes vegetation (non- bacterial thrombotic endocarditis, infective endocarditis) vs less likely fibroelastoma. ??? Left??Atrium: No right to left intracardiac or extracardiac shunt present viewable with agitated saline, color Doppler and Valsalva maneuver. Normal sized appendage. Normal appendage flow velocity. No thrombus present in the left atrial appendage (MADELEINE). ??? Left??Ventricle: Left ventricle size is normal. Hyperdynamic systolic function with a visually estimated EF of 75 - 80%. ??? No hemodynamically significant valvular abnormality. XR ABDOMEN KUB PORTABLE Result Date: 10/24/2022 PROCEDURE: XR ABDOMEN KUB PORTABLE, DATE/TIME OF EXAM: 10/23/2022 1:53 PM, LOCATION [facility] INDICATION: R47.1: Dysarthria ADDITIONAL CLINICAL INFORMATION: Ordering Provider ReasonFor Exam: NGT placement COMPARISON: Portable KUB dated 10/20/2022 FINDINGS/IMPRESSION: The enteric tube courses below the diaphragm with tip superimposing the stomach. Drafted by Agnes Olmos DO (resident services coordinator). Vanessa Ornelas MD have personally reviewed and interpreted this examination/study. 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 EXAMINATION: Computed tomography (CT) of the head without contrast TECHNIQUE: CT of the head was performed without contrast according to standard protocol. CT dose reduction technique was used, including Automated Exposure Control. COMPARISON: Comparison is made with a CT head dated 10/22/2022. FINDINGS: Redemonstration of postoperative changes consistent of a right hemicraniectomy with underlying extra-axial blood products along the lateral cerebral convexity and small foci of pneumocephalus, slightly decreased or redistributed compared to prior. Unchanged appearance of a right intracranial pressure monitor. Extensive cytotoxic edema and mass effect in the right MCA territory with associated diffusesulci effacement and right lateral ventricle effacement grossly unchanged from prior. There is a right to left midline shift measuring up to 2 mm, stable to mildly improved from prior. No new intracranial hemorrhage or intra- or extra-axial fluid collections are identified. The ventricular morphology is stable compared to prior exams. The basal cisterns are mildly effaced. The visualized portionsof the orbits appear grossly unremarkable. Minimal opacification in the left ethmoid air cells. Theimaged mastoid air cells appear grossly clear. A presumed nasogastric tube present. Mild dilation of the left lateral ventricle likely representing mild left ventricular entrapment. Hyperdensity along the right sylvian fissure compatible with right MCA thrombosis. No acute calvarial fracture is identified. There is soft tissue edema overlying the right hemicraniectomy site and right zygomatic region are essentially unchanged from prior. IMPRESSION: 1.Redemonstration of postsurgical changes of decompressive craniectomy and evolving right middle cerebral artery territory infarct. 2.No hemorrhagic transformation. 3.Extensive cytotoxic edema and mass effect with approximately 2 mm midline shift, [place] similar or slightly improved from prior. 4.Stable right intracranial pressure monitor. The report is dictated by Miranda Bowen MD(resident services coordinator) I, Jasper Sifuentes MD have personally reviewed and interpreted this examination/study. 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 COMPARISON: No prior study is available for comparison at the time of this dictation. FINDINGS: Redemonstration of post surgical changes of a right hemicraniectomy, and a right MCA infarct. Stable appearance of right intracran ial pressure monitor. There are extra-axial blood products along the right lateral cerebral convexity at the craniectomy site with associated pneumocephalus consistent with postsurgical changes. There is extensive edema and mass effect in the right MCA territory. There is sulcal effacement and effac ement of the right lateral ventricle. There is right to left midline shift measuring up to 4 mm, stable from prior There is no evidence of new acute intracranial hemorrhage. The ventricular morphology is stable compared to prior examination. The basilar cisterns are patent. The orbits appear normal. The paranasal sinuses are clear. The mastoid air cells are clear. IMPRESSION: 1.Redemonstration of postsurgical changes of decompressive right hemicraniectomy for evolving right middle cerebral artery territory infarct. There is significant edema and mass effect with approximately 4 mm of midline shift, unchanged from prior. No evidence of new acute intracranial hemorrhage. > Interpreting Provider: Lonnie Rae MD on 10/22/2022 3:[address] HEAD WO CONTRAST Result Date: 10/22/2022 PROCEDURE: CT HEAD WO CONTRAST DATE/TIME OF EXAM: 10/22/2022 2:33 PM CLINICAL INFORMATION: None relevant/not provided if blank. 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 FINDINGS: Redemonstration of post surgical changes of a right hemicraniectomy, and a right MCA infarct. Stable appearance of right intracranial pressuremonitor. There are extra-axial blood products along the right lateral cerebral convexity at the craniectomy site with associated pneumocephalus consistent with postsurgical changes. There is extensive edema and mass effect in the right MCA territory. There is sulcal effacement and effacement of theright lateral ventricle. There is right to left midline shift measuring up to 4 mm, stable from prior There is no evidence of new acute intracranial hemorrhage. The ventricular morphology is stable compared to prior examination. The basilar cisterns are patent. The orbits appear normal. The paranasal sinuses are clear. The mastoid air cells are clear. IMPRESSION: 1.Stable appearance of postsurgical changes of decompressive right hemicraniectomy for evolving right middle cerebral artery territory infarct. There is significant edema and mass effect with approximately 4 mm of midline shift, unchanged from prior. No evidence of new acute intracranial hemorrhage. Report dictated by Lorenzo Horta MD (nursing resident). ILonnie MD have personally reviewed and interpreted this examination/study. > Interpreting Provider: Lonnie Rae MD on 10/22/2022 3:10 PM XR CHEST 1VW PORTABLE Result Date: 10/21/2022 PROCEDURE: XR CHEST 1VW PORTABLE, DATE/TIME OF EXAM: 10/21/2022 8:53 AM, LOCATION [facility] INDICATION: R53.1: Weakness ADDITIONAL CLINICAL INFORMATION: Ordering Provider Reason ForExam: post intubation COMPARISON: None. Chest radiograph FINDINGS/IMPRESSION: Lines, tubes, hardware: * An endotracheal tube seen with the tip appropriately positioned in the mid thoracic trachea. * Enteric tube is seen with its tip below the diaphragm out of the field of view. Minimal right basilar airspace opacification. Otherwise, no confluent consolidation. No pneumothorax is visible. The cardiomediastinal silhouette is normal. The visible bony thorax is intact. Report dictated by Christopher Tobin MD, MD (resident services coordinator). I, HEATHER FREGOSO MD have personally reviewed and interpreted this examination/study. > Interpreting Provider: HEATHER FREGOSO MD on 10/21/2022 5:59 PM ECHO TRANSTHORACIC W BUBBLE STUDY Result Date: 10/20/2022 ??? Left??Ventricle: Left ventricle size is normal. Normal wall thickness. Normal systolic functionwith a visually estimated EF of 60 - 65%. Normal wall motion. Normal diastolic function. ??? NormalRV size and systolic function. ??? No significant valvular abnormalities. ??? Bubble study negativefor shunt. ??? Normal IVC and visualized portion of aorta. CT HEAD WO CONTRAST Result Date: 10/20/2022 DATE/TIME OF EXAM: 10/20/2022 9:13 PM, LOCATION [facility] INDICATION: I63.411: Acute cerebrovascular accident (CVA) due to embolism of right middle cerebral artery (CMS/HCC) ADDITIONAL CLINICAL INFORMATION: Ordering Provider Reason For Exam: [facility] COMPARISON: Multiple prior studies, most recently CT head dated 10/20/2022 at 8:19 AM TECHNIQUE: CT of the head was performed withoutcontrast according to standard protocol. FINDINGS: There has been interval postsurgical changes of right hemicraniectomy for management of cerebral edema following right MCA territory infarct. A right-sided subdural drain is in place. There is redemonstration of evolving right middle cerebral artery territory infarct, with associated edema and mass effect with sulcal effacement, effacement of theright lateral ventricle, and wctoh-oo-cgxl midline shift measuring up to 4 mm and stable from prior(series 5, image 36). A catheter is seen terminating within the region of the right parietal lobe, likely representing an ICP monitor. No evidence of acute intracranial hemorrhage. The ventricular morphology is stable from prior, without evidence of obstructive hydrocephalus. The basilar cisterns are patent. The scott-white matter differentiation otherwise appears normal. The orbits appear normal.The paranasal sinuses are clear. The mastoid air cells are clear. No soft tissue abnormality is identified. IMPRESSION: Interval postsurgical changes of decompressive right hemicraniectomy with ICP monitor and subdural drain in place. 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 > Dictated by Bassam Jovel M.D. (nursing resident) I, Gonzalez Velasco MD have personally reviewed and interpreted this examination/study. > Interpreting Provider: Gonzalez Velasco MD on 10/20/2022 11:06 PM XR ABDOMEN KUB PORTABLE Result Date: 10/20/2022 PROCEDURE: XR ABDOMEN KUB PORTABLE DATE/TIME OF EXAM: 10/20/2022 12:44 PM Indication: I63.511: Rightmiddle cerebral artery stroke (CMS/HCC) Evaluation of NG tube placement COMPARISON: None. FINDINGS/IMPRESSION: An enteric tube is seen coursing into the stomach with its tip and side-port in the gastric body. Report dictated by Royer Stovall MD (resident services coordinator). I, Amanda Prieto MD have personally reviewed and interpreted this examination/study. > Interpreting Provider: Amanda Prieto MD on 10/20/2022 3:[address] HEAD NON CONTRAST Result Date: 10/20/2022 PROCEDURE: CT HEAD WO CONTRAST DATE/TIME OF EXAM: 10/20/2022 8:19 AM CLINICAL INFORMATION: None relevant/not provided if blank. Indication: R44.9: Left-sided sensory deficit present Additional History: Follow-up of acute stroke COMPARISON: Noncontrast brain CT 19 October 2022. TECHNIQUE: Noncontrast CT brain was performed utilizing standard protocol. CT dose reduction technique was used, including Automated Exposure Control. FINDINGS: There is no definite acute intracranial hemorrhage. There is alarge confluent area of decreased attenuation within the right cerebral hemisphere consistent with a large acute infarct in the distribution of the right middle cerebral artery. Mass effect is produced approximately 4 mm of midline shift right to left. There is some mild effacement of the right side of the suprasellar cistern. There is increased attenuation within the region of the right middle cerebral artery likely representing thrombus. There is some effacement of the right lateral and third ventricles due to the mass effect related to the acute infarct. The left lateral and fourth ventricles are within normal limits in size. No definite areas of abnormal attenuation within the left cerebral hemisphere. Bone window images are negative for depressed skull fracture. When comparison is made to the previous study of 19 October 2022 there has been progression of the acute infarct in the right middle cerebral artery distribution which is larger in size and with new mass effect and midlineshift. IMPRESSION: Findings consistent with a large acute area of infarction in the right cerebral hemisphere in the distribution of the right middle cerebral artery with mass effect and approximately 4 mm of midline shift right to left. There is no definite hemorrhagic transformation. There is hyperdensity of the right middle cerebral artery likely representing thrombus. Clinical correlation and continued close interval follow-up are recommended. Results discussed with the stroke team physician, Dr. Stephanie Hester, on 20 October 2022 approximately 1225 hours. > Interpreting Provider: Joni Fabian MD on 10/20/2022 12:[address] ANGIO BRAIN NECK STROKE Result Date: 10/19/2022 PROCEDURE: CT ANGIO BRAIN NECK STROKE, DATE/TIME OF EXAM: 10/19/2022 8:16 AM, LOCATION [facility] INDICATION: Code Stroke ADDITIONAL CLINICAL INFORMATION: Ordering Provider Reason For Exam: Technologist Note: Additional: EXAMINATION: 1. Computed tomographic (CT) angiography of the head with contrast 2. CT angiography of the neck with contrast TECHNIQUE: CT angiography of the headand neck was obtained after the uneventful administration [...] a concurrent noncontrasted head CT for detailed intracranialfindings including findings suggesting an acute right MCA [...] arteries are patent. The basilar artery is patentpatent. 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 IMPRESSION: 1. [...] Lonnie Rae MD on 10/19/2022 8:[address] BRAIN - Stroke Result Date: 10/19/2022 PROCEDURE: CT BRAIN STROKE, DATE/TIME OF EXAM: 10/19/2022 8:04 AM, LOCATION [facility] INDICATION: Code Stroke ADDITIONAL CLINICAL INFORMATION: Ordering [...] of scott-white matter differentiation in the right frontotemporallobes and the right insula, concerning for an acute infarct. There is suggestion of a hyperdense right MCA likely represent acute thrombus (series 5 image 25). No acute intracranial hemorrhage or intra- or extra-axial fluid collections are identified. The ventricles are of normal size, shape, and morphology. The basal cisterns are patent. No mass effect or midline shift is seen. The scott-white mat ter differentiation is normal. The visualized portions of [...] Lonnie Rae MD on 10/19/2022 8:15 AM Right middle cerebral artery stroke (CMS/HCC) (POA: Unknown) Acute cerebrovascular accident (CVA) due to embolism of right middle cerebral artery (CMS/HCC) (POA: Yes) Nihss score 9 (POA: Yes) Received intravenous tissue plasminogen activator (tPA) in emergency department (POA: Yes) GERD (gastroesophageal reflux disease) (POA: Yes) Hemianopsia (POA: Yes) Weakness (POA: Yes) Left-sided sensory deficit present (POA: Yes) Gaze palsy (POA: Yes) Migraine (POA: Unknown) Hypertension (POA: Unknown) Presence of externally removable percutaneous endoscopic gastrostomy (PEG) tube (CMS/HCC) (POA: Unknown) Anemia (POA: Yes) Hepatocellular injury (POA: No) Assessment Consuelo Darby??is a 41 year old??female who??presented on 10/19 with Right MCA syndrome ??s/p TNK. CTA 1 M1 occlusion. S/P mechanical thrombectomy with R M1 recanalization and TICI2b. CT 10/20/22 with edema and mild shift. S/P decompressive right hemicraniectomy. Echo showed a??mobile??aortic valve vegetation.??MRI brain with scattered cortical R hemisphere infarcts with petechiae. ?? Stroke Type:??Ischemic Stroke Mechanism:??Cardioembolic Plan TIA/Stroke Workup; complete -R M1 ischemic stroke; active - s/p TICI2b revascularization, TNK - s/p decompressive hemicrani on 10/20 for malignant MCA - HbA1C: 6.0, LDL: 91, Cardiac Enzymes; wnl - atorvastatin 80 mg -??Warfarin bridge with Lovenox , hold warfarin d/t plan for LP- last lovenox last night - LP today ?? Core Measures TNK??administration: yes Anti-thrombotic: holding while on AC Statin:??atorvastatin 80mg DVT prophylaxis:??on lovenox 1mg/kg PEG tube ?? Migraine -??On??verapamil 40 TID; no concerns for headaches currently ?? GENESIS -??not currently on??home amitriptyline ?? 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 ?? Fever - Blood cx still negative, - d-dimer high,??US extremities b/l UE??shows superficial thrombus in cephalic veins - ID on board. - CT abd shows concerns for abscess under peg and hematoma over femoral vessels underwent procedureon 11/10 - Cardiology, IR, vascular surgery, acute care surgery aware - ID recs continue Vanc+Doxycycline and add meropenem, stopped cefepime and flagyl 11/12 - Advised to stop vancomycin due to concerns for drug-induced fever (11/12; no fever since stopped) - Currently on meropenem and doxy (end dt 11/22) will discuss with ID. - CTAP today. ?? Leucopenia resolved - Hematology consulted - ID aware- no recs from them - Pt on prolonged antibiotic course currently ?? Eosinophilia - IM did not have any recs and deemed 2/2 beta lactams ?? 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 HTN - home metop??25 mg bid ?? Transamnitis -??stable transamnitis - Medicine consulted; deemed likely 2/2 cefepime induced -??RUQ U/S normal - reassuring labs ?? Blood Pressure Goals: SBP <160, map >70 ?? Vit D deficiency - Vit D 2,000 U daily ?? Urinary Retention - Urology following and will have outpatient trial in 1 month ?? Skin Rash: Consulted dermatology, rash improved Triamcinolone ointment ? Individual Modifiable Risk Factors Hypertension:??no Hyperlipidemia:??no Diabetes:??no Atrial Fibrillation:??no Tobacco:??no ?? Family updated this morning. ?? Case findings discussed with Dr. Antunez, Stroke Attending. Radames Hinkle MD Neurology Resident * Anita Richards - 11/16/2022 3:39 PM CDT Care Coordination Progress Note DISCHARGE PLAN: Chart reviewed Patient is medically ready to transition to next level of care Post acute recommendation: Intense 3 hour per day multidisciplinary inpatient therapies SW spoke to spouse, Hi; prefers location for rehab Discharge Facility Information: [facility] ([address] [place] [id number]) SW notified [facility] Senior User Experience ArchitectElida to begin insurance auth Insurance authorization is required for post acute care needs Payer/Plan Subscriber Name Rel Member # Group # [facility]* CONSUELO DARBY [id number] [address] [id number] Anticipated level of care at discharge: Acute Rehab Facility: Anticipated level of care provider: [facility]: Anticipated Discharge Date: 11/17/22: Orientation Level: Oriented to Person;Oriented to Place;Oriented to Time: Family Support (Name and Phone): Extended Emergency Contact Information Primary Emergency Contact: PjlubnaHi Address: [address] [place] [address] [place] [address] [facility] Relation: Spouse Secondary Emergency Contact: Sandra Disla [facility] Mobile Relation: Mother Transportation at Discharge: Ambulance: READMISSION RISK SCORE is 16 at 3:39 PM 11/16/2022.: Name: Anita Richards * Jerry Leigh, JOSETTE - 11/16/2022 1:30 PM CDT [facility] Language Evaluation and Swallow Therapy Patient: Consuelo Darby Med Record Number: [id number] Date of : 1980 Age: [age] year old PPE: n95, gloves Impressions: Patient's speech and language assessed via the WAB. Patient demonstrated a mild expressive language deficit, with halting speech and slow processing. Patient completed PO trial of multiple ice chips and attempted to drink from the straw but was unable to achieve adequate suction. SIGNALING PROJECT ENGINEER utilized straw as a pipette and patient was able to complete 3 small sips of water using this method. Discharge Recommendations: Patient would benefit from intensive 3-hour multidisciplinary therapy Speech therapy is recommended for further assessment of speech/language/cognition. Subjective: Mental Status: Alert and responsive Pain: Patient does not report pain at this time Objective: Bedside Western Aphasia Battery (WAB) administered assessing the following: ??? Spontaneous Speech/ Content: 7/10 ??? Fluency: 07/19 ??? Auditory Verbal Comprehension/Yes/No Questions: 12/19 ??? Sequential Commands: 12/19 ??? Repetition: 12/19 ??? Object namin/10 ??? Reading: DNT ??? Writing: DNT WAB Results ?? Bedside Aphasia Score: 88.33 ?? Bedside Language Score: NA ?? Bedside Aphasia Classification: NA WAB Scores Severity Ratin-25 Very severe 26-50 Severe 51-75 Moderate 76+ mild Assessment: Pt. presents with mild receptive and expressive aphasia characterized by slow processing and halting speech patterns, at times. Assessment: Behavioral: Cooperative and Lethargic Cognitive-Communication: Decreased: Mild Education: Patient, Family and Nursing instructed in recommedations and indicated understanding. Goals: Short Term Goals: Patient to demonstrate use of techniques to improve speech intelligibility. Patient to demonstrate use of strategies for improved expressive communication. Patient to demonstrate increased alertness and attention to task up to 10 minutes. Patient to identify and use memory strategies for task completion. Patient to demonstrate gains in problem solving/abstract reasoning. Environmental Marketer Goals: Patient to be independent/baseline with speech/language/cognitive/swallowing to beable to safely discharge to prior level of care. If patient is discharged from the facility, this note serves as a discharge note if further speech therapy visits did not occur. Jerry Valle M.A., [facility]-SIGNALING PROJECT ENGINEER Speech Language Pathologist [phone] * Shania Troy OT - 11/16/2022 12:01 PM CDT [facility] Physical Medicine and Rehabilitation Occupational Therapy Progress Note Patient: Consuelo Darby Med Record Number: [id number] Date of : 1980 Age: [age] year old PPE worn by staff: gloves;mask - surgical services coordinator: Cheli Recommendations: Discharge OT Discharge Recommendations: Patient would benefit from intensive 3-hour multidisciplinary therapy This recommendation is made due to ongoing intensive OT functional needs: not at baseline due to impaired ability to complete ADL's;functional mobility is significantly below baseline;patient demonstrates a significant functional decline and would benefit from skilled therapy intervention to restore function;patient has the ability to progress and demonstrate measurable gains as a result of skilled therapy Recommended Transportation Method: Stretcher/Ambulance Nurse and Physical Therapy contacted regarding patient status and/or discharge plan. Activity Level: up ad bigg PRECAUTIONS: Falls, skin, helmet, SBP <160 SUBJECTIVE: Subjective: Pt stating lay down. Pain Assessment: Pain Location #1 Pain Scale/Observation: Numeric (0-10) Pain Rating Score #1: (unrated) Sedation Level #1: 1-Awake and alert Pain Location : Abdomen OBJECTIVE: At start of therapy session, patient found in bed General Appearance: Pt in bed upon arrival in [facility]. LDA: PIV, PEG, puentes catheter Mental Status/Cognition: Level of Consciousness-Adult: Alert Orientation Level: Oriented to Person;Oriented to Place;Oriented to Time Cognition: Follows one step commands;Attention/concentration-decreased;Processing-delayed;Judgement- decreased;Safety awareness-decreased;Impulsive Mobility: a gait belt and non-slip socks were used for all out of bed activity this date. Bed Mobility: Rolling: Maximal Assistance to Left Supine to Sit: Maximum Assistance;X 2 Sit to Supine: Moderate Assistance;X 2 Transfers: Sit to Stand: Maximum Assistance;X 2;Requires Verbal Cues for Safety;Requires Physical Cues for Safety;Requires Verbal Cues for Technique;Requires Physical Cues for Technique Stand to Sit: Maximum Assistance;X 2;Requires Verbal Cues for Safety;Requires Physical Cues for Safety;Requires Verbal Cues for Technique;Requires Physical Cues for Technique Transfer Device: Gait belt (bilateral handheld assist) Pt observed with two instances of LLE foot dorsiflexion and knee flexion on command. Balance: Max A for static sitting EOB for 9 min. Pt with one instance of self correction to midlinesitting posture with SBA and use of RUE on bedrail. Pt able to maintain static sitting with SBA andRUE support for ~5 seconds. Pt tolerates static standing with bilateral handheld assist and neutralhead/neck posture for ~30 seconds. Activities of Daily Living: Upper Body Dressing: Maximal Assistance (to adjust gown) Lower Body Dressing: Total Assistance Performed LUE PROM. Pt able to touch and identify LUE 2x when asked. Splint Issued/Checked:??L resting hand and L foot drop. Splints fitting appropriately, skin integrity intact. ACTIVITY TOLERANCE: Patient's activity tolerance: fair Modified [place]: Current Modified [place] Score: 5 AM-PAC 6 Clicks Daily Activity Raw Score:: 9 TREATMENT/INTERVENTIONS: ADL training Cognitive retraining Functional transfer training Endurance training Bed mobility Energy conservation Safety awareness EDUCATION: While performing OT, Patient was instructed in:functional mobility training, self-care training, cognitive retraining, energy conservation, safety awareness/fall precautions , stroke education and precautions, use of call light Presented to patient who demonstrates Questionable understanding of instructions given. INFORMED CONSENT TO TREATMENT: Plan of care is discussed but patient with questionable understanding. ASSESSMENT: Patient continues to benefit from skilled Occupational Therapy to achieve the following functional goals. Short Term Goals: Goal Formation With patient/family Patient will increase orientation to?person, place, time and situation Patient will perform supine to/from sit??with moderate assist and X 2 Patient will tolerate treatment??20 minutes, with good endurance and with minimal pain Group Home Goal(s): Patient to discharge to appropriate next level of inpatient care Plan: Patient continues to benefit from skilled therapy services., Continue with goals as established. If patient is discharged from the facility, this note serves as a discharge summary if further occupational therapy visits did not occur. Refer to filed flowsheet for further details. Following therapy session, patient left in bed, with bed alarm on , with call light within reach, with family in room, with Tasha BOGGS aware, with therapy cues visible on white board. * Tasha Clay RN - 11/16/2022 10:03 AM CDT Problem: ELOPEMENT/ABDUCTION Goal: Risk for elopement &/or abduction during hospitalization is minimized Outcome: Progressing Problem: Pain/Discomfort Goal: Patient uses pharmacological and non-pharmacological pain management strategies. Outcome: Progressing Goal: Patient verbalizes acceptable level of pain relief and ability to engage in desired activity. Outcome: Progressing Problem: Mobility Goal: Patient's mobility/activity will be maintained as optimum level for age, diagnosis and physical limitations Outcome: Progressing Goal: Continuum of care needs are further met through referral to outpatient services when appropriate. Outcome: Progressing Goal: Patient reports the ability to perform Activities of Daily Living. Outcome: Progressing Problem: Communication Impairment/Dysarthria Goal: Ability to express needs and understand communication Outcome: Progressing Problem: Nutrition Goal: Nutritional status is improving Outcome: Progressing Problem: Glycemic Control Goal: Clinical indication of glycemia balance is achieved Outcome: Progressing Problem: Knowledge Deficit,Education,Discharge Plan Goal: The patient/family will understand cerebrovascular disease and its symptoms, treatment and management Outcome: Progressing Problem: Oral Intake: Inadequate oral intake Goal: Total intake will meet estimated nutrient needs Outcome: Progressing Problem: Swallowing Goal: LTG - Patient will tolerate the least restrictive diet consistency to allow for safe consumption of daily meals Outcome: Progressing Goal: STG - Patient will participate in instrumental assessment of swallowing as appropriate Outcome: Progressing Goal: STG - Patient will tolerate therapeutic trials of recommended consistency without clincial signs and symptoms of aspiration Outcome: Progressing Goal: STG - Patient will tolerate recommended food and liquid consistencies without clinical signs and symptoms of aspiration Outcome: Progressing Goal: STG - Patient will complete swallowing exercises Outcome: Progressing Goal: STG - Patient/family will complete oral motor exercises for improved bolus control Outcome: Progressing Problem: Transfers Goal: STG - Transfer from bed to chair Outcome: Progressing Problem: Risk for Violence: Self-Directed or Other Directed Description: Diagnosis: Risk for self-directed Violence or Risk for Directed Violence Risk Factors: Biochemical/neurologic imbalances, impulsivity, manic excitement, psychotic symptomatology, rage reaction, restlessness Possibly Evidenced By: agitated behaviors, delusional thinking, hallucinations, loud/threatening/profane speech, poor impulse control, provocative behaviors, verbal threats against others, verbal threats against self Goal: Patient will verbalize control of feelings. Outcome: Progressing Goal: Patient will respond to interventions when potential or actual loss of control occurs. Outcome: Progressing Goal: Patient will refrain from provoking others to physical harm. Outcome: Progressing Goal: Patient will display nonviolent behaviors toward others in the hospital, with the aid of medications and nursing interventions. Outcome: Progressing Goal: Patient will seek help when experiencing aggressive impulses. Outcome: Progressing Goal: Patient will refrain from verbal threats and loud, profrane language toward others. Outcome: Progressing Goal: Patient will be safe and free from injury. Outcome: Progressing Problem: Skin Integrity Goal: Skin integrity is maintained or improved Outcome: Progressing Problem: Neurological Deficit Goal: Neurological status is stable or improving Outcome: Progressing * Good Antunez MD - 11/16/2022 7:20 AM CDT I have seen and examined the patient with the resident and I agree with the findings and plan of care as documented by the reisident. Date of Service: 11/16/2022 Good Antunez MD Multidisciplinary rounds were held at 9am and the patient's care and recovery plan were reviewed and developed with the assembled team. Consuelo Darby is a 42 year old F p/w M1 occlusion s/p TNK and MT and TICI2b revascularization on10/19. TTE showed mobile aortic valve vegetation. Developed MCA syndrome s/p hemicrani. 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 - Fever: consulted ID, broaden abx, Cxs. - MRI brain w/wo done (11/10): cortical enhancement along the right frontal parietal and temporal regions 2/2 infarct progression but can't rule out cerebritis or infections. ID recommends LP. -- glenis PEG fluid collection: Discussing with IR. - Urology replaced puentes (11/09-) Problem List Right middle cerebral artery stroke (CMS/HCC) (POA: Unknown) Acute cerebrovascular accident (CVA) due to embolism of right middle cerebral artery (CMS/HCC) (POA: Yes) Nihss score 9 (POA: Yes) Received intravenous tissue plasminogen activator (tPA) in emergency department (POA: Yes) GERD (gastroesophageal reflux disease) (POA: Yes) Hemianopsia (POA: Yes) Weakness (POA: Yes) Left-sided sensory deficit present (POA: Yes) Gaze palsy (POA: Yes) Migraine (POA: Unknown) Hypertension (POA: Unknown) Presence of externally removable percutaneous endoscopic gastrostomy (PEG) tube (CMS/HCC) (POA: Unknown) Anemia (POA: Yes) Hepatocellular injury (POA: No) See Resident note for the remaining problem specific plan. 28 MEDICATIONS FOR CURRENT ENCOUNTER: SCHEDULED MEDICATIONS: 0.9% NaCl injection 10-40 mL, Intracatheter, q8h 0.9% NaCl injection 3 mL, Intracatheter, q8h doxycycline monohydrate capsule 100 mg, Enteral Tube, q12h guaiFENesin (Robitussin) solution 10 mL, Enteral Tube, q12h lansoprazole (Prevacid) suspension 30 mg, Enteral Tube, QDAY BEFORE BREAKFAST loratadine (Claritin) tablet 10 mg, Enteral Tube, QDAY meropenem (Merrem) 2,000 mg in 0.9% NaCl IV 140 mL IVPB, Intravenous, q8h metoprolol tartrate IR (Lopressor) tablet 25 mg, Enteral Tube, q12h perflutren lipid microsphere (Definity) injection 0.5 mL, Intravenous, intra- Procedure multiple tamsulosin (Flomax) capsule 0.4 mg, Enteral Tube, QDAY triamcinolone acetonide (Kenalog) 0.1 % ointment, Topical, BID verapamil (Isoptin) tablet 40 mg, Enteral Tube, q8h vitamin D3 (Cholecalciferol) 25 MCG (1000 UNITS) tablet 2,000 Units, Enteral Tube, QDAY [COMPLETED] 0.9% NaCl IV bolus, Intravenous, Once [COMPLETED] lidocaine (Xylocaine) 1 % injection, Subcutaneous, Once ?? [] fentaNYL (PF) (Sublimaze) injection 25 mcg, Intravenous, Once ?? CONTINUOUS MEDICATIONS: PRN MEDICATIONS: 0.9% NaCl injection 10-40 mL, Intravenous, PRN 0.9% NaCl injection 3 mL, Intracatheter, PRN acetaminophen (Tylenol) tablet 500 mg, Enteral Tube, q6h PRN bisacodyl (Dulcolax) suppository 10 mg, Rectal, QDAY PRN oxyCODONE (immediate release) (Roxicodone) tablet 5 mg, Enteral Tube, q6h PRN polyethylene glycol 3350 (Miralax) packet 17 g, Enteral Tube, QDAY PRN ?? senna-docusate (Senokot-S) tablet 2 tablet, Enteral Tube, QDAY PRN Patient Vitals for the past 24 hrs: Temp Pulse Resp BP 11/16/22 0317 98.7 ??F (37.1 ??C) 101 16 116/63 11/16/22 0012 98.5 ??F (36.9 ??C) 102 16 109/57 11/15/22 2129 -- 102 -- 122/55 11/15/22 1345 98.2 ??F (36.8 ??C) 89 16 118/69 11/15/22 0901 98 ??F (36.7 ??C) 88 16 107/52 Recent Labs Component Name 11/16/22 0217 11/15/22 0212 11/14/22 0239 NA 139 137 140 CL 104 103 104 CO2 27 26 25 BUN 13 12 11 CREATININE 0.57 0.50* 0.51* CALCIUM 8.8 8.6 8.6 PHOS 3.5 3.0 3.5 Recent Labs Component Name 11/16/22 0217 11/15/22 0212 11/14/22 0239 10/23/22 0129 10/22/22 0153 WBC 7.3 5.5 4.7 - - RBC 3.49* 3.51* 3.47* - - HGB 10.1* 10.0* 9.9* - - HCT 32.6* 32.6* 32.8* - - PLT - - - - 199 - = values in this interval not displayed. Recent Labs Component Name 10/20/22 0302 06/15/22 0757 CHOL 173 204* TRIG 201* 251* HDL 42 37* LDLCALC 91 117* Recent Labs Component Name 10/20/22 1015 HGBA1C 6.0* EAG 126 Recent Labs Component Name 11/16/22 0217 11/15/22 0212 11/14/22 0239 10/27/22202810/27/22 0054 PLTCOUNT 446* 404* 364 - 519* PLATELET - - - - Occasional* - = values in this interval not displayed. * Shruti Samuel RN - 11/16/2022 12:13 AM CDT Problem: ELOPEMENT/ABDUCTION Goal: Risk for elopement &/or abduction during hospitalization is minimized Outcome: Progressing Problem: Pain/Discomfort Goal: Patient uses pharmacological and non-pharmacological pain management strategies. Outcome: Progressing Goal: Patient verbalizes acceptable level of pain relief and ability to engage in desired activity. Outcome: Progressing Problem: Mobility Goal: Patient's mobility/activity will be maintained as optimum level for age, diagnosis and physical limitations Outcome: Progressing Goal: Continuum of care needs are further met through referral to outpatient services when appropriate. Outcome: Progressing Goal: Patient reports the ability to perform Activities of Daily Living. Outcome: Progressing Problem: Communication Impairment/Dysarthria Goal: Ability to express needs and understand communication Outcome: Progressing Problem: Nutrition Goal: Nutritional status is improving Outcome: Progressing Problem: Glycemic Control Goal: Clinical indication of glycemia balance is achieved Outcome: Progressing Problem: Knowledge Deficit,Education,Discharge Plan Goal: The patient/family will understand cerebrovascular disease and its symptoms, treatment and management Outcome: Progressing Problem: Oral Intake: Inadequate oral intake Goal: Total intake will meet estimated nutrient needs Outcome: Progressing Problem: Swallowing Goal: LTG - Patient will tolerate the least restrictive diet consistency to allow for safe consumption of daily meals Outcome: Progressing Goal: STG - Patient will participate in instrumental assessment of swallowing as appropriate Outcome: Progressing Goal: STG - Patient will tolerate therapeutic trials of recommended consistency without clincial signs and symptoms of aspiration Outcome: Progressing Goal: STG - Patient will tolerate recommended food and liquid consistencies without clinical signs and symptoms of aspiration Outcome: Progressing Goal: STG - Patient will complete swallowing exercises Outcome: Progressing Goal: STG - Patient/family will complete oral motor exercises for improved bolus control Outcome: Progressing Problem: Transfers Goal: STG - Transfer from bed to chair Outcome: Progressing Problem: Risk for Violence: Self-Directed or Other Directed Description: Diagnosis: Risk for self-directed Violence or Risk for Directed Violence Risk Factors: Biochemical/neurologic imbalances, impulsivity, manic excitement, psychotic symptomatology, rage reaction, restlessness Possibly Evidenced By: agitated behaviors, delusional thinking, hallucinations, loud/threatening/profane speech, poor impulse control, provocative behaviors, verbal threats against others, verbal threats against self Goal: Patient will verbalize control of feelings. Outcome: Progressing Goal: Patient will respond to interventions when potential or actual loss of control occurs. Outcome: Progressing Goal: Patient will refrain from provoking others to physical harm. Outcome: Progressing Goal: Patient will display nonviolent behaviors toward others in the hospital, with the aid of medications and nursing interventions. Outcome: Progressing Goal: Patient will seek help when experiencing aggressive impulses. Outcome: Progressing Goal: Patient will refrain from verbal threats and loud, profrane language toward others. Outcome: Progressing Goal: Patient will be safe and free from injury. Outcome: Progressing Problem: Skin Integrity Goal: Skin integrity is maintained or improved Outcome: Progressing Problem: Neurological Deficit Goal: Neurological status is stable or improving Outcome: Progressing * Good Antunez MD - 11/15/2022 9:44 PM CDT I have seen and examined the patient with the resident and I agree with the findings and plan of care as documented by the reisident. Date of Service: 11/14/2022 Good Antunez MD Multidisciplinary rounds were held at 9am and the patient's care and recovery plan were reviewed and developed with the assembled team. Consuelo Darby is a 42 year old F p/w M1 occlusion s/p TNK and MT and TICI2b revascularization on10/19. TTE showed mobile aortic valve vegetation. Developed MCA syndrome s/p hemicrani. 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 - Fever: consulted ID, broaden abx, Cxs. - MRI brain w/wo done (11/10): cortical enhancement along the right frontal parietal and temporal regions 2/2 infarct progression but can't rule out cerebritis or infections. ID recommends LP. -- glenis PEG fluid collection: Discussing with IR. - Urology replaced puentes (11/09-) Problem List Right middle cerebral artery stroke (CMS/HCC) (POA: Unknown) Acute cerebrovascular accident (CVA) due to embolism of right middle cerebral artery (CMS/HCC) (POA: Yes) Nihss score 9 (POA: Yes) Received intravenous tissue plasminogen activator (tPA) in emergency department (POA: Yes) GERD (gastroesophageal reflux disease) (POA: Yes) Hemianopsia (POA: Yes) Weakness (POA: Yes) Left-sided sensory deficit present (POA: Yes) Gaze palsy (POA: Yes) Migraine (POA: Unknown) Hypertension (POA: Unknown) Presence of externally removable percutaneous endoscopic gastrostomy (PEG) tube (CMS/HCC) (POA: Unknown) Anemia (POA: Yes) Hepatocellular injury (POA: No) See Resident note for the remaining problem specific plan. 27 MEDICATIONS FOR CURRENT ENCOUNTER: SCHEDULED MEDICATIONS: 0.9% NaCl injection 10-40 mL, Intracatheter, q8h 0.9% NaCl injection 3 mL, Intracatheter, q8h doxycycline monohydrate capsule 100 mg, Enteral Tube, q12h fentaNYL (PF) (Sublimaze) injection 25 mcg, Intravenous, Once guaiFENesin (Robitussin) solution 10 mL, Enteral Tube, q12h lansoprazole (Prevacid) suspension 30 mg, Enteral Tube, QDAY BEFORE BREAKFAST loratadine (Claritin) tablet 10 mg, Enteral Tube, QDAY meropenem (Merrem) 2,000 mg in 0.9% NaCl IV 140 mL IVPB, Intravenous, q8h metoprolol tartrate IR (Lopressor) tablet 25 mg, Enteral Tube, q12h perflutren lipid microsphere (Definity) injection 0.5 mL, Intravenous, intra- Procedure multiple tamsulosin (Flomax) capsule 0.4 mg, Enteral Tube, QDAY triamcinolone acetonide (Kenalog) 0.1 % ointment, Topical, BID verapamil (Isoptin) tablet 40 mg, Enteral Tube, q8h vitamin D3 (Cholecalciferol) 25 MCG (1000 UNITS) tablet 2,000 Units, Enteral Tube, QDAY [COMPLETED] 0.9% NaCl IV bolus, Intravenous, Once ?? [COMPLETED] lidocaine (Xylocaine) 1 % injection, Subcutaneous, Once ?? CONTINUOUS MEDICATIONS: PRN MEDICATIONS: 0.9% NaCl injection 10-40 mL, Intravenous, PRN 0.9% NaCl injection 3 mL, Intracatheter, PRN acetaminophen (Tylenol) tablet 500 mg, Enteral Tube, q6h PRN bisacodyl (Dulcolax) suppository 10 mg, Rectal, QDAY PRN oxyCODONE (immediate release) (Roxicodone) tablet 5 mg, Enteral Tube, q6h PRN polyethylene glycol 3350 (Miralax) packet 17 g, Enteral Tube, QDAY PRN ?? senna-docusate (Senokot-S) tablet 2 tablet, Enteral Tube, QDAY PRN Patient Vitals for the past 24 hrs: Temp Pulse Resp BP 11/15/22 2129 -- 102 -- 122/55 11/15/22 1345 98.2 ??F (36.8 ??C) 89 16 118/69 11/15/22 0901 98 ??F (36.7 ??C) 88 16 107/52 11/15/22 0349 97.8 ??F (36.6 ??C) 89 -- 110/60 11/14/22 2331 98.2 ??F (36.8 ??C) 91 -- 107/63 Recent Labs Component Name 11/15/22 0212 11/14/22 0239 11/13/22 021 NA 137 140 138 CL 103 104 107 CO2 26 25 23 BUN 12 11 11 CREATININE 0.50* 0.51* 0.54* CALCIUM 8.6 8.6 8.1* PHOS 3.0 3.5 3.9 Recent Labs Component Name 11/15/22 0212 11/14/22 0239 11/13/220 10/23/22 0129 10/22/22 0153 WBC 5.5 4.7 2.7* - - RBC 3.51* 3.47* 3.36* - - HGB 10.0* 9.9* 9.8* - - HCT 32.6* 32.8* 30.8* - - PLT - - - - 199 - = values in this interval not displayed. Recent Labs Component Name 10/20/22 0302 06/15/22 0757 CHOL 173 204* TRIG 201* 251* HDL 42 37* LDLCALC 91 117* Recent Labs Component Name 10/20/22 1015 HGBA1C 6.0* EAG 126 Recent Labs Component Name 11/15/2221111/14/22 0239 11/13/220 10/27/22202810/27/22 0054 PLTCOUNT 404* 364 334 - 519* PLATELET - - - - Occasional* - = values in this interval not displayed. * Radha Covarrubias RN - 11/15/2022 6:08 PM CDT Problem: ELOPEMENT/ABDUCTION Goal: Risk for elopement &/or abduction during hospitalization is minimized Outcome: Progressing Problem: Pain/Discomfort Goal: Patient uses pharmacological and non-pharmacological pain management strategies. Outcome: Progressing Goal: Patient verbalizes acceptable level of pain relief and ability to engage in desired activity. Outcome: Progressing Problem: Mobility Goal: Patient's mobility/activity will be maintained as optimum level for age, diagnosis and physical limitations Outcome: Progressing Goal: Continuum of care needs are further met through referral to outpatient services when appropriate. Outcome: Progressing Goal: Patient reports the ability to perform Activities of Daily Living. Outcome: Progressing Problem: Communication Impairment/Dysarthria Goal: Ability to express needs and understand communication Outcome: Progressing Problem: Nutrition Goal: Nutritional status is improving Outcome: Progressing Problem: Glycemic Control Goal: Clinical indication of glycemia balance is achieved Outcome: Progressing Problem: Knowledge Deficit,Education,Discharge Plan Goal: The patient/family will understand cerebrovascular disease and its symptoms, treatment and management Outcome: Progressing Problem: Oral Intake: Inadequate oral intake Goal: Total intake will meet estimated nutrient needs Outcome: Progressing Problem: Swallowing Goal: LTG - Patient will tolerate the least restrictive diet consistency to allow for safe consumption of daily meals Outcome: Progressing Goal: STG - Patient will participate in instrumental assessment of swallowing as appropriate Outcome: Progressing Goal: STG - Patient will tolerate therapeutic trials of recommended consistency without clincial signs and symptoms of aspiration Outcome: Progressing Goal: STG - Patient will tolerate recommended food and liquid consistencies without clinical signs and symptoms of aspiration Outcome: Progressing Goal: STG - Patient will complete swallowing exercises Outcome: Progressing Goal: STG - Patient/family will complete oral motor exercises for improved bolus control Outcome: Progressing Problem: Transfers Goal: STG - Transfer from bed to chair Outcome: Progressing Problem: Risk for Violence: Self-Directed or Other Directed Description: Diagnosis: Risk for self-directed Violence or Risk for Directed Violence Risk Factors: Biochemical/neurologic imbalances, impulsivity, manic excitement, psychotic symptomatology, rage reaction, restlessness Possibly Evidenced By: agitated behaviors, delusional thinking, hallucinations, loud/threatening/profane speech, poor impulse control, provocative behaviors, verbal threats against others, verbal threats against self Goal: Patient will verbalize control of feelings. Outcome: Progressing Goal: Patient will respond to interventions when potential or actual loss of control occurs. Outcome: Progressing Goal: Patient will refrain from provoking others to physical harm. Outcome: Progressing Goal: Patient will display nonviolent behaviors toward others in the hospital, with the aid of medications and nursing interventions. Outcome: Progressing Goal: Patient will seek help when experiencing aggressive impulses. Outcome: Progressing Goal: Patient will refrain from verbal threats and loud, profrane language toward others. Outcome: Progressing Goal: Patient will be safe and free from injury. Outcome: Progressing Problem: Skin Integrity Goal: Skin integrity is maintained or improved Outcome: Progressing Problem: Neurological Deficit Goal: Neurological status is stable or improving Outcome: Progressing * Barbara Arteaga - 11/15/2022 3:31 PM CDT attempted to check in with Consuelo and her mom Sandra at bedside; Consuelo was asleep and mom confirmed she'd just gotten back from a procedure. will try to follow up tomorrow. chaplain Cici Ascom [phone] outbound call center representative [phone] * Shania Troy OT - 11/15/2022 10:52 AM CDT [facility] Department of Physical Medicine & Rehabilitation Progress Note Patient: Consuelo Darby Med Record Number: [id number] Date of : 1980 Age: [age] year old 11/15/22 1146 Missed Visit Missed Visit Procedure Off Floor Pt off the floor for LP at time of OT attempt. OT will continue to follow and attempt treatment session at a later time/date as appropriate. * Rosa Vegas, PT - 11/15/2022 10:40 AM CDT [facility] Department of Physical Medicine & Rehabilitation Progress Note Patient: Consuelo Darby Med Record Number: [id number] Date of : 1980 Age: [age] year old 11/15/22 1040 Missed Visit Missed Visit Procedure Off Floor Patient off the floor Medical Imaging * Karishma Ojeda MD - 11/15/2022 7:12 AM CDT Stroke Service Daily Progress Note Consuelo Darby Age: [age] year old Date of : 1980 Date of Admission: 10/19/2022 Hospital Day: 27 Subjective Consuelo Darby is a 41yo woman hemiplegic migraine,??GERD, GENESIS. who developed acute onset L sided weakness, L-sided sensory deficits, and dysarthria. L sided weakness resolved in route and dysarthriaimproved in route. On arrival patient noted to hae Amy florez plasy, L hemainopsia, mild dysarthria, and extinction. NIHSS: 7. S/p TNK and ??TICI2b revascularization of the R MCA M1 occlusion.Repeat CTH showing edema in R MCA territory. On 10/20/22 patient taken for hemicraniectomy, post-op CTH showing stable midline shift. Initial hypercoag work up negative, repeat in 2 months. ?? -10/23- SARAH concerning for aortic cusp vegetations. [...] by GI team while evaluating her for G tube 11/01 CT A/P obtained and no abscess was identified in the abdominal area. Postsurgical changes after vascular surgery. ?? 11/02 GI to take her to OR for G tube. Ready TTF. 11/03 start warfarin bridge 11/04 CT head for headache and eye discomfort after bumping her head on hemicrani site. NSGY aware and evaluated her. CT looks stable. 11/05 had a fever. Infectious workup initiated and ID reconsulted. Plan to broaden spectrum (currently on ceftriaxone + vanc, switch to cefe + vanc + doxycycline ) after blood cultures are taken 11/06: no acute event. On heparin gtt. Warfarin bridge. INR 1.4. 11/10: underwent gastric erosion for abscess underlying peg by ACS 11/12: vanc d/c for concerns abt drug fever ?? Interval History: Patient had no acute events occur overnight.??LP today. Objective Patient Vitals for the past 24 hrs: BP Temp Temp src Pulse Resp SpO2 11/15/22 0349 110/60 97.8 ??F (36.6 ??C) Axillary 89 -- 96 % 11/14/22 2331 107/63 98.2 ??F (36.8 ??C) Axillary 91 -- 98 % 11/14/22 1946 120/66 97.5 ??F (36.4 ??C) Axillary 101 -- 100 % 11/14/22 1718 124/78 97.9 ??F (36.6 ??C) Axillary 95 16 100 % 11/14/22 1215 111/73 97.5 ??F (36.4 ??C) Axillary 84 16 99 % 11/14/22 0758 105/58 97.9 ??F (36.6 ??C) Axillary 79 16 96 % Intake/Output Summary (Last 24 hours) at 11/15/2022 0713 Last data filed at 11/15/2022 0627 Gross per 24 hour Intake 889 ml Output 3200 ml Net -2311 ml Exam: Cortical Function Mental Status Awake, alert, follows basic commands Orientation REYNOLD Language No verbal output??but family says she spoke words to them Visual Powell Intact bilaterally to confrontation Neglect No visual neglect noted, no tactile neglect noted ?? Cranial Nerves II Pupils 3 mm and bilaterally reactive to light. Fundoscopic exam not performed. VIII Hearing is intact bilaterally to voice. III/IV/ Extraocular muscles intact. No diplopia, ptosis, nystagmus or convergence abnormalities noted. IX/X REYNOLD V REYNOLD XI Head turning and shoulder shrug are intact. VII L facial palsy XII Tongue is midline with normal movements and no atrophy noted. ?? Motor Function Movement No abnormalities noted Bulk No abnormalities noted Tone No abnormalities noted ?? Moves RUE and RLE 4/5 strength, tries to withdraw to pain in LUE and LLE 2/5 in left side ?? Sensory Light Touch Symmetric and intact bilaterally Noxious Stimuli Symmetric and intact bilaterally ?? Labs: Recent Labs Component Name 11/15/22 0212 11/14/22 0239 11/13/22 0210 10/23/22 0129 10/22/22 0153 WBC 5.5 4.7 2.7* - - RBC 3.51* 3.47* 3.36* - - HGB 10.0* 9.9* 9.8* - - HCT 32.6* 32.8* 30.8* - - PLT - - - - 199 - = values in this interval not displayed. Recent Labs Component Name 11/15/22 0212 11/14/2223811/13/22209 NA 137 140 138 CL 103 104 107 CO2 26 25 23 BUN 12 11 11 CREATININE 0.50* 0.51* 0.54* CALCIUM 8.6 8.6 8.1* No results for input(s): MG in the last 95501 hours. Recent Labs Component Name 11/15/22 0212 11/14/2223811/13/22209 PHOS 3.0 3.5 3.9 Recent Labs Component Name 11/15/222 11/14/2223811/13/22209 PT 14.3 15.9* 17.7* INR 1.1 1.3 1.5 PTT 28.2 45.9* 47.9* No results for input(s): A1C in the last 40666 hours. Recent Labs Component Name 10/20/22 0302 06/15/22 0757 CHOL 173 204* HDL 42 37* LDLCALC 91 117* TRIG 201* 251* Recent Labs Component Name 11/13/22209 TSH 5.706* Recent Labs Component Name 11/13/22 1534 CKTOTAL 57 US ABDOMEN LTD W COMP DOPPLER Result Date: 11/14/2022 PROCEDURE: US ABDOMEN LTD W COMP DOPPLER DATE/TIME OF EXAM: 11/14/2022 9:24 AM CLINICAL INFORMATION: None relevant/not provided if blank. Indication: R74.01: Transaminitis COMPARISON: CT abdomen pelvisdated 11/09/2022. FINDINGS: Abdomen: The liver is normal in echotexture and echogenicity with smoothsurface contour. No discrete hepatic mass or intrahepatic biliary dilatation is seen. The gallbladder is absent. The common bile duct measures 7 mm, likely representing reservoir effect in a postcholecystectomy state. The right kidney measures 10.8 x 5.3 x 4.3 cm. Limited views of the right kidney reveal no evidence of nephrolithiasis or hydronephrosis. The spleen measures 9.3 cm in length. The vi sible pancreas is normal in echogenicity. No ascites [...] cholecystectomy. > Dictated by Miranda Bowen MD (resident services coordinator). > Dictated by Miranda Bowen (Human Resources Compensation Analyst) 11/14/2022 9:18 AM IHEATHER MD have personally reviewed and interpreted this examination/study. > Interpreting Provider: HEATHER FREGOSO MD on 11/14/2022 9:54 AM XR CHEST 1VW PORTABLE Result Date: 11/13/2022 PROCEDURE: XR CHEST 1VW PORTABLE, DATE/TIME OF EXAM: 11/12/2022 8:45 PM, LOCATION [facility] INDICATION: R50.9: Fever, unspecified fever cause ADDITIONAL [...] abnormality. Report dictated by Agnes Olmos DO (resident services coordinator). IPepe MD have p ersonally reviewed and interpreted this examination/study. > Interpreting Provider: Pepe Gonzalez MD on 11/13/2022 11:59 AM MRI BRAIN WWO CONTRAST Result Date: 11/10/2022 PROCEDURE: MRI BRAIN WWO CONTRAST, DATE/TIME OF EXAM: 11/09/2022 11:51 PM, LOCATION [facility] INDICATION: R50.9: Fever, unspecified fever cause ADDITIONAL [...] enhancement along the soft tissues surrounding the extra- axial collection Redemonstration of extensive cytotoxic edema in the right frontotemporoparietal regions, the right insula, and the right basal ganglia, extending along the martínez radiata /right centrum semiovale compatible with evolving acute rightMCA territory infarction. Some of these lesions show persistent restricted diffusion including basal ganglia and the right periventricular white matter suggesting evolving infarction. There is persistent local mass effect on the right cerebral hemisphere with effacement of the overlaying sulci, mild external herniation of the infarcted brain through the craniectomy defect. Interval resolution of effacement of the right lateral ventricle and the [id number] midline shift. Extensive susceptibility artifacts along the [...] CT suggesting evolving cortical laminar necrosis. Interval resolutionof restricted diffusion along small areas of, left [...] stable. The visualized portions of the orbits appeargrossly unremarkable. No significant opacification of the paranasal or mastoid air cells.. Normal flow voids are demonstrated in the carotid arteries and basilar artery. The calvarium and visualized cervical spine otherwise appear normal. IMPRESSION: 1. Redemonstration of postsurgical changes from right decompressive hemicraniectomy andevolving large volume right MCA territory infarct as described above. Mild interval increase in thecaliber of lateral and third ventricles could be secondary to decreased mass effect, less likely hyd rocephalus, continued attention recommended on follow-up. 2. Interval [...] the extra-axial fluid collection overlying the craniectomy sitecould be secondary to evolving blood products/postsurgical changes versus secondary to superimposedinfection, clinical correlation is recommended. These findings were discussed with patient's care provider, Dr. Tucker, stroke team, by on 11/10/2022 11:59 AM with read back verification. > Interpreting Provider: Oriana Suarez MD on 11/10/2022 12:[address] ABDOMEN PELVIS W CONTRAST Result Date: 11/10/2022 PROCEDURE: CT ABDOMEN PELVIS W CONTRAST DATE/TIME OF EXAM: 11/09/2022 4:49 PM CLINICAL INFORMATION: None relevant/not provided if blank. 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 TECHNIQUE: CT of the abdomen and pelvis was performed following intravenous contrast utilizing standard protocol. CT dose reduction technique was used, including Automated Exposure Control. CONTRAST: IOPAMIDOL 76 % IV SOLN:100 mL FINDINGS: Lung bases are clear. Liver is normal. The gallbladder is absent. The spleen is normal. The pancreas is normal. There is a duodenal diverticulum. Both adrenal glands are normal. Both kidneys enhance symmetrically with no hydronephrosis. T he urinary bladder is decompressed with a Puentes catheter. Uterus is normal. A gastrostomy tube is present. There is a 2 cm rim-enhancing collection along the inferior aspect of the gastrostomy tube with small locule of gas seen on series 6 image 67 measuring 2.2 cm. There is no bowel obstruction. There is progressive soft tissue stranding with a mass in the right groin measuring 4 cm with small locules of gas, likely inflammatory mass. There is mass effect on the right femoral artery with mild narrowing as marked narrowing of the femoral vein, encased by the collection. Abdominal aorta is normal in caliber. The portal vein is patent. No suspicious osseous lytic or blastic lesion. IMPRESSION: 1. Progressive soft tissue stranding with gas in the right inguinal region with an inflammatory mass encasing the right femoral vessels with mild narrowing of the femoral artery and moderate narrowing of the femoral vein. This could represent a postsurgical hematoma. Recommend correlation with symptoms and signs of superinfection. 2. Interval placement of a gastrostomy tube with a small gas and fluid collection along the inferior aspect of the gastrostomy tube insertion site and stomach, measuring 2.2 cm. Findings communicated with Dr. Goyal at 2005 hours on 11/09/2022 > Interpreting Provider: Pepe Gonzalez MD on 11/10/2022 12:[address] ANGIO CHEST PULM EMBOLISM Result Date: 11/07/2022 PROCEDURE: CT ANGIO CHEST PULM EMBOLISM, DATE/TIME OF EXAM: 11/07/2022 5:25 PM, LOCATION [facility] INDICATION: R50.9: Fever, unspecified fever cause ADDITIONAL CLINICAL INFORMATION:Ordering Provider Reason For Exam: PE, fever COMPARISON: CT chest abdomen pelvis with contrast dated 10/25/2022. TECHNIQUE: CT of the chest was performed following the uneventful administration of 100mL of Isovue 370 intravenous contrast according to [...] suspicious pulmonary nodules are identified. No pleural fluidor pneumothorax is present. Heart and Pericardium: The cardiac chambers are normal in size. No pericardial fluid or thickening is present. There is no radiographic evidence of right heart strain. Mediastinum and Isabel: No enlarged lymph nodes are present. Bones and Chest Wall: Bone windows demonstrate no suspicious lytic or blastic lesions. The visible osseous structures are intact. Upper Abdomen:The visible portions of the upper abdominal organs are normal. Impression: 1.No evidence of acute pulmonary embolism. There is no radiographic evidence of right heart strain. 2.No other acute process within the chest. > Dictated by Tim Major MD (resident services coordinator). I, Alexx Lopez have personally reviewed and interpreted this examination/study. > Interpreting Provider: Alexx Lopez on 11/07/2022 10:30 PM ECHO COMPLETE Result Date: 11/07/2022 ??? Left??Ventricle: Left ventricle size is normal. EDV Index BP is 55.3 mL/m2. ESV Index BP is 18.3 mL/m2. Normal wall thickness. LVPWd is 1.01 cm. Ventricular mass is normal. Mass index 2D is 61.25g/m2. Normal systolic function with a visually estimated EF of 65 - 70%. EF by 2D Abarca biplane is 67%. Normal wall motion. Normal diastolic function. Normal mean left atrial pressure. Tissue Doppler velocity is reduced. MV peak E velocity is 102.695 cm/s. MV e' lateral velocity is 14.141 cm/s. MV e' septal velocity is 10.702 cm/s. ??? Right ventricle size is normal. Normal free wall thickness.RV wall thickness is 0.5 cm. Normal wall [...] mmHg). IVC is normal in size. SVC wasnot assessed. ??? Estimated sPAP is 23.0 mmHg. Estimated RVSP is 23.0 mmHg. RAP is 3.0 mmHg. Mean PA pressure of 15 mmHg. PVR < 1.5 Wood units. ? ? Normal valve morphology nd function. ? ? No pericardial effusion. ??? Normal sized annulus, sinus of Valsalva (aortic root), ascending aorta, aorticarch, descending aorta and abdominal aorta. Normal echocardiogram by 2D, m-mode, color and spectralDoppler echocardiography. IR INTRACRANIAL [facility] THROMBECT Result Date: 11/07/2022 PROCEDURE: IR INTRACRANIAL [facility] THROMBECT DATE/TIME OF EXAM: 10/19/2022 10:41 AM Procedure: CerebralAngiogram and Mechanical Thrombectomy for Acute Stroke Comparison Study: History: 41 year oldwith GERD, tobacco, p/w left sided neglect both sensory and visual, LWK 6:30, s/p TNK. CTA 1 M1 occlusion.Will take to IR for a mechanical thrombectomy. Notification Time: 8:21 NIHSS Score: 6 ASPECTS: 9 In-room: 8:48 Puncture Time: 8:53 Location of Clot: R M1 MCA Initial TICI: 0 Time to Clot: 9:37 Time to Reperfusion: 9:54 Final TICI: 2b Pit Slagman: Dr. Mitali Walter Meteorologist In Charge(s): Isak Monte Vessels: Ultrasound Guided Access of Femoral Artery Ultrasound Guided Access of Radial Artery Arterial line placement in the right radial artery Right Common Carotid Artery Angiogram: Cerebral Intracranial Catheterization Mechanical Thrombectomy with Retrievable Stent and Reperfusion Catheter Angiography Through the Existing Catheter Right Femoral Artery Angiogram Anesthesia: General Anesthesia was performed and monitored by an attending Anesthesiologist and their technical services assistant throughout the entirety of the case Procedural Detail: The risks, benefits, and alternatives to procedure were discussed in detail with the patient and her family. These included but were not limited to the risk of blood loss, vessel injury, stroke, renal injury, and contrast allergy. The patient was brought to the biplane a ngiography suite where she underwent prep and drape procedures. Limited ultrasound of the right radial artery demonstrated a patent vessel. A 5 new zealander sheath was placed in the radial artery and was used as an arterial line. Limited ultrasound of the common femoral artery demonstrated a patent vessel. The take off of the profunda and other arteries were identified. A scott scale image was documented. The right common femoral artery was accessed using a micropuncture needle. The needle entry was documented. Following a series of exchanges, a 8 Russian sheath sheath was placed in the right femoralartery. A Guide and a 6 Russian [employer]umb[employer] Select Serrano 2 catheter along with a stiff 0.035 Glidwirewas navigated into the aortic arch. The catheter was used to select brachiocephalic artery followedby the right common carotid artery and finally [...] then removed from the arterial system. After 5min were allowed to elapse for maximal [...] system. Hemostasis was achieved using a 8 Russian Angio-Seal closure device. Hemostasis was immediate at [...] revascularization on the MCA territory was visualized. Impression: 1. TICI2b revascularization of the R MCA M1 occlusion. Location of Clot: Right M1 segment Initial TICI: 0 Final TICI: 2b I, Dr. Jim Walter, was present and performed/supervised theentire procedure. Jim Ornelas MD have personally reviewed and interpreted this examination/study. > Interpreting Provider: Jim Walter MD on 11/07/2022 9:21 AM XR ABDOMEN KUB PORTABLE Result Date: 11/06/2022 PROCEDURE: XR ABDOMEN KUB PORTABLE, DATE/TIME OF EXAM: 11/05/2022 5:28 PM, LOCATION [facility] INDICATION: R50.9: Fever, unspecified fever cause ADDITIONAL CLINICAL INFORMATION: Ordering Provider Reason For Exam: constipation Technologist Note: Additional: COMPARISON: 10/28/2022 KUBFINDINGS: PEG tube overlying left upper quadrant. Interval removal of enteric tube. There is no dilatation of small or large bowel. No pneumoperitoneum or pathological calcification is seen. The visible osseous structures are intact. The lung bases are clear. IMPRESSION: Non-obstructive bowel gas pattern. Report dictated by Mc Castro MD, (resident services coordinator). Pepe Ornelas MD have personally reviewed and interpreted this examination/study. > Interpreting Provider: Pepe Gonzalez MD on 11/06/2022 10:[address] HEAD WO CONTRAST Result Date: 11/05/2022 PROCEDURE: CT HEAD WO CONTRAST DATE/TIME OF EXAM: 11/05/2022 12:11 AM CLINICAL INFORMATION: None relevant/not provided if blank. 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 CT dose reduction technique was used, including Automated Exposure Control. FINDINGS: Redemonstration of postsurgical changes from decompressive right frontal parietotemporal craniectomy. Unchanged herniation of the right frontoparietal and temporal lobes through the craniectomydefect. Unchanged evolving large right MCA territory infarction involving the right frontal parietal and temporal lobes. 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 No significant midline shift. Unchanged ex vacuo dilation of the right lateral ventricle. There is interval increase in cortical hyperdensity involving the right parietal, frontal lobes (image 11, 12, 14, series 3). Extra-axial fluid collection overlying the herniated right cerebral convexity measuring 1.5 cm in thickness, not significantly changed compared to prior study. No interval change in the scott- white matter differentiation. No significant opacification of the mastoid or paranasal sinuses. No acute soft tissue findings or calvarial findings. IMPRESSION: 1. Redemonstration of post surgical changes from decompressive hemicraniectomy and evolving large right MCA territory subacute infarct. Interval increased linear hyperdense foci along thecortex of right frontal and parietal lobes could be secondary to evolving cortical laminar necrosisversus developing petechial hemorrhages. Continued attention recommended on short-term follow-up. However no hematoma noted. No evidence of midline shift. These findings were discussed with patient'scare provider, Dr. Roth with neurology, by on 11/05/2022 5:46 PM with read back verification. > Interpreting Provider: Oriana Suarez MD on 11/05/2022 5:48 PM XR CHEST 1VW PORTABLE Result Date: 11/05/2022 PROCEDURE: XR CHEST 1VW PORTABLE, DATE/TIME OF EXAM: 11/05/2022 9:38 AM, LOCATION [facility] INDICATION: R50.9: Fever, unspecified fever cause ADDITIONAL CLINICAL INFORMATION: Ordering Provider Reason For Exam: consolidation COMPARISON: Chest radiograph 10/29/2022. FINDINGS/IMPRESSION: Previously seen feeding tube has been removed. These no confluent consolidation, pleural effusion, or pneumothorax is noted. The cardiomediastinal silhouette is stable. No acute osseous abnormality is noted. Report dictated by Christopher Tobin MD, MD (resident services coordinator). IHEATHER MD have personally reviewed and interpreted this examination/study. > Interpreting Provider: HEATHER FREGOSO MD on 11/05/2022 2:[address] ABDOMEN WO CONTRAST Result Date: 11/02/2022 PROCEDURE: CT ABDOMEN WO CONTRAST, DATE/TIME OF EXAM: 2022 6:47 PM, LOCATION [facility] INDICATION: Z93.1: Presence of externally removable percutaneous endoscopic gastrostomy (PEG) tube (CMS/HCC) ADDITIONAL CLINICAL INFORMATION: Ordering Provider Reason For Exam: diffcult percutaneous PEG tube placement, rule out complications COMPARISON: CT abdomen pelvis with contrast dated 10/31/2022 TECHNIQUE: CT of the chest, abdomen, and pelvis was performed without contrast according to standard protocol. Findings: Evaluation of visceral and vascular structures is degraded due tolack of intravenous contrast administration. Lines/tubes: *Interval placement of a percutaneous trudi rostomy tube with intraluminal placement of tip and [...] Bone windows demonstrate no suspicious lytic or blasticlesions. The visible osseous structures are intact. Soft tissues: Normal. Impression: Interval placement of a percutaneous gastrostomy tube with intraluminal placement of tip and inflated balloon within the body/antrum of the stomach without complication, as clinically queried.. > Dictated by Tim Major MD (resident services coordinator). Pepe Ornelas MD have personallyreviewed and interpreted this examination/study. > Interpreting Provider: Pepe Gonzalez MD on 11/02/2022 1:[address] ABDOMEN PELVIS W CONTRAST Result Date: 10/31/2022 PROCEDURE: CT ABDOMEN PELVIS W CONTRAST, DATE/TIME OF EXAM: 10/31/2022 10:16 AM, LOCATION [facility] INDICATION: I33.0: Aortic valve vegetation ADDITIONAL CLINICAL INFORMATION: Ordering Provider Reason For Exam: abscess? Technologist Note: Additional: COMPARISON: CT chest abdomen and pelvis 10/25/2022. TECHNIQUE: CT of the abdomen and pelvis was performed following the uneventful administration of 100 mL of Isovue 370 intravenous contrast according to standard protocol. Findings: Lower Chest: Bibasilar subsegmental atelectasis present. Liver: Normal. Gallbladder and Bile Ducts: The gallbladder is absent. Spleen: Normal. Pancreas: Normal. Adrenals: Normal. Kidneys: Normal. Bladder: A Puentes catheter terminates within a decompressed urinary bladder. Gastrointestinal: Enteric tube terminates in the stomach. Duodenal diverticulum present. The stomach and visualized loops of large and small bowel are otherwise unremarkable. Normal appendix. Mesentery/Peritoneum/Retroperitoneum: Normal. Reproductive Organs: The uterus is normal. Vasculature: There is been interval postsurgical changes to the right common femoral/external iliac artery region with previously seen thrombus in this region no longer visualized. There is however irregularity of the distal right external iliacand proximal right common femoral artery and mild narrowing in this region likely resenting postsurgical changes. Questionable flap in the proximal common femoral artery (series 3 image 153). Bones: Bone windows demonstrate no suspicious lytic or blastic lesions. The visible osseous structures are intact. Soft tissues: There is extensive soft tissue stranding edema and fluid throughout the right groin with multiple foci of subcutaneous gas along likely represent post surgical changes. Although there is focal fluid was prominent at series 3, image 153 in this region no rim- enhancing drainable fluid collections are appreciated at this time. Impression: 1.Interval postsurgical changes to the distal right external iliac/proximal right common femoral arteries with previously seen thrombus in this region no longer visualized. There is however irregularity of the artery in this region with mild narrowing which is favored to represent postsurgical changes. Questionable flap within the proximal common femoral artery as detailed above. 2.Extensive soft tissue stranding, edema and fluid along with subcutaneous gas in the right groin likelyrepresenting postsurgical changes. Although there is focal fluid in this region, no rim-enhancing drainable fluid collections are appreciated at this time. > Interpreting Provider: Alexx Lopez on 10/31/2022 11:[address] HEAD WO CONTRAST Result Date: 10/31/2022 EXAM: CT HEAD WO CONTRAST, DATE/TIME OF EXAM: 10/30/2022 8:22 PM, LOCATION: [facility] HISTORY: I63.511: Right middle cerebral artery stroke (CMS/HCC) ADDITIONAL CLINICAL INFORMATION: Ordering Provider Reason For Exam: Heparin supratherapeutic bleed follow up. EXAMINATION: CT scan of the head without intravenous contrast TECHNIQUE: CT of the head was performed without intravenouscontrast according to standard protocol. CT dose reduction technique was used, including Automated Exposure Control. COMPARISON: Head CT 10/28/2022. Brain MRI 10/24/2022. FINDINGS: See impression. IMPRESSION: Compared to prior head CT 10/28/2022: 1.Re-demonstrated postsurgical changes of decompressive right frontoparietotemporal craniectomy with multiple overlying scalp carla. Evolving heterogeneous subdural hematoma along the right frontotemporal convexity measuring up to 8 mm in maximal thickness (5/32), previously measuring up to 9 mm in thickness. 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 Increased conspicuity of a thin hyperdensity along the cortex within this region suggestive of evolving cortical laminar necrosis. 3.Re-demonstrated small hypodensity of the left inferior frontal gyrus/frontal operculum, consistent with an evolving nhuuxtwe-sn-towyfde infarct. 4.No significant midline shift. Similar-appearing size and configuration of the ventricles without evidence of hydrocephalus. Basal cisterns are patent. 5.No other convincing change. Partially imaged left nasoenteric tube. > Interpreting Provider: Amanda Real MD, PhD on 10/31/2022 1:26 AM [facility] ANGIO TEAM Result Date: 10/30/2022 Fluoroscopy was used for this exam in the OR. Please see the Operative report. XR CHEST 1VW PORTABLE Result Date: 10/29/2022 PROCEDURE: XR CHEST 1VW PORTABLE, DATE/TIME OF EXAM: 10/29/2022 10:29 AM, LOCATION [facility] INDICATION: R09.02: Hypoxia ADDITIONAL CLINICAL INFORMATION: Ordering Provider Reason For Exam: evaluate for hypoxia COMPARISON: Chest x-ray from 10/27/2022 FINDINGS/IMPRESSION: Enteric tube is seen coursing over the diaphragm without visualization of the distal tip. There is no focal consolidation, pleural effusion, or pneumothorax. The cardiomediastinal silhouette is normal. Report dictated by Jacques Russell DO (resident services coordinator). Jacques Ornelas DO have personally reviewed and interpreted this examination/study. 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 Report dictated by Jacques Russell DO (resident services coordinator). Jacques Ornelas DO have personally reviewed and interpreted this examination/study. 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 FINDINGS/IMPRESSION: Enteric tube courses below the diaphragm with the distal tip superimposing the antropyloric region. Report dictated by Martell Shetty MD (resident services coordinator). Jacques Ornelas DO have personally reviewed and interpreted this examination/study. > Interpreting Provider: Jacques Cole DO on 10/28/2022 12:[address] HEAD WO CONTRAST Result Date: 10/28/2022 PROCEDURE: CT HEAD WO CONTRAST, DATE/TIME OF EXAM: 10/28/2022 5:28 AM, LOCATION [facility] INDICATION: Z91.89: At high risk for bleeding after thrombolytic therapy monitor for hemorrhagic bleed given heparin use in massive stroke EXAMINATION: Computed tomography (CT) of the head without contrast TECHNIQUE: CT of the head was performed without contrast according to standard protocol. CT dose reduction technique was used, including Automated Exposure Control. COMPARISON: CT head without contrast dated 10/27/2022 FINDINGS: Redemonstrated are postoperative changes of decompressiveright frontoparietotemporal craniectomy, with multiple overlying scalp carla. Redemonstrated slightly heterogeneous subdural hemorrhage along the right frontotemporal convexity measuring 9 mm in the maximal thickness (series 3 image 17), without significant change compared to prior study. Redemonstrated evolving right MCA infarct. There is moderate mass effect on the right lateral ventricle. There is again associated mild external herniation through the craniectomy site. Unchanged gyriform hyperdensity within the infarcted area which may represent laminar necrosis. Small volume of subarachnoid hemorrhage cannot be completely ruled out. No new acute intracranial hemorrhage. The ventricles are mildly dilated compared to 10/19/2022, otherwise unchanged compared to 10/27/2022. The basal cisterns are patent. No midline shift is seen. Unchanged small focus of hypoattenuation in the left frontal lobe (series 3 image 20) likely represents a small subacute infarct. Partially visualized nasogastric tube. The visualized portions of the orbits, paranasal sinuses, and mastoids appear normal. No acute calvarial fracture is identified. IMPRESSION: 1. Evolving right MCA subacute infarct status post decompressive craniectomy. Grossly unchanged right frontotemporal subdural hemorrhage. Grossly unchanged gyriform hyperdensity in the infarcted area may represent subarachnoid hemorrhage. No midline shift. Unchanged mildly dilated ventricles may represent mild hydrocephalus. 2. Unchanged small focus of hypoattenuation in the left frontal lobe likely represents additional subacute infarct. The report is dictated by Kayla Stevenson MD (resident services coordinator) 1 ILonnie MD have personally reviewed and interpreted this examination/study. > Interpreting Provider: Lonnie Rae MD on 10/28/2022 9:15 AM XR CHEST 1VW PORTABLE Result Date: 10/27/2022 PROCEDURE: XR CHEST 1VW PORTABLE, DATE/TIME OF EXAM: 10/27/2022 10:19 AM, LOCATION [facility] INDICATION: D72.829: Leukocytosis, unspecified type ADDITIONAL CLINICAL INFORMATION: Ordering Provider Reason For Exam: any concern for pneumonia COMPARISON: Chest radiograph dated 10/25/2022. FINDINGS/IMPRESSION: Enteric tube courses below the diaphragm and out of the wdwee-fu-xcra. RUQ surgical clips are present. No focal consolidation. No pleural effusion or pneumothorax. The cardiomediastinal silhouette is normal. Report dictated by Agnes Olmos DO (resident services coordinator). I, Pepe Gonzalez MD have personally reviewed and interpreted this examination/study. 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 COMPARISON: 10/26/2022. FINDINGS: Redemonstration of postoperative anisha nges of decompressive right cranioplasty. An evolving extra-axial hematoma is again noted in the craniotomy site. Small volume subarachnoid hemorrhage is is again seen in the right cerebral sulci. Again noted is herniation of the intracranial contents through the craniectomy defect. Again demonstrated is an evolving subacute infarct in the nearly entire right MCA distribution, grossly unchanged. There is persistent mass effect on the lateral ventricle. A small hypoattenuating focus is again noted in the left frontal lobe, which may represent a small subacute infarct. The ventricles are stable. The basal cisterns are patent. No midline shift. The scott-white matter differentiation is normal. The visualized portions of the orbits, paranasal sinuses, and mastoids appear normal. No acute calvarial fracture is identified. IMPRESSION: 1. Redemonstration of evolving right MCA subacute infarct, status post right decompressive craniectomy. The extra-axial hematoma underlying the craniectomy site and subarachnoid hemorrhage in the right cerebral sulci are grossly unchanged. Mass effect on the right lateral ventricle is unchanged. No significant midline shift. 2. Small focus of likely a subacute infarct in the left frontal lobe is unchanged. > Interpreting Provider: Lonnie Rae MD on 10/27/2022 12:10 PM XR CHEST 1VW PORTABLE Result Date: 10/26/2022 PROCEDURE: XR CHEST 1VW PORTABLE, DATE/TIME OF EXAM: 10/25/2022 9:41 AM, LOCATION [facility] INDICATION: I63.511: Right middle cerebral artery stroke (CMS/HCC) ADDITIONAL CLINICAL INFORMATION: Ordering Provider Reason For Exam: Atlectasis/mucus plugging Comparison: Chest x-ray from10/23/2022, and CT chest, abdomen, pelvis from same day FINDINGS/IMPRESSION: Interval removal of theendotracheal tube. Enteric tube courses below the diaphragm and out of the [id number]-[id number]-urmh. There is severe left rotation of the patient in this study. There is no focal consolidation, pleural effusion, or pneumothorax. The left upper lobe pulmonary nodule noted on chest CT from same day is not visualized on this plain film. The cardiomediastinal silhouette is normal. The visible bony thorax is intact. Report dictated by Royer Stovall MD (resident services coordinator). IAlexx have personally reviewed and interpreted this examination/study. 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 COMPARISON: Comparison ismade with a CT head dated 10/25/2022. FINDINGS: Redemonstration of postoperative changes of right decompressive hemicraniectomy. Redemonstration of large volume confluent acute infarct in the right MCA territory involving the right frontal parietal temporal and insular regions and basal ganglia. Redemonstration of mild herniation of the right frontoparietal and temporal regions through the craniectomy defect. Redemonstration of a curvilinear extra-axial/extracranial fluid collection overlying the right cerebral convexity containing debris and blood products, measuring about 7 mm in thickness not significantly changed compared to prior study. Redemonstration of linear foci of hyperdensity along the evolving infarct most likely secondary to prominent vasculature. No new hyperdense foci within the evolving infarct. No evidence of transtentorial or tonsillar herniation. Station a mass effectfrom the large evolving right MCA territory infarct with effacement of sulci, and effacement of theright lateral ventricle. There is a large area of recent infarction seen in the right hemisphere inthe MCA territory with associated mass effect and some effacement of the right lateral ventricle grossly unchanged from prior. There are foci of hypoattenuation consistent with small evolving subacute to acute infarcts within the left frontal lobe periventricular white matter and left martínez radiata extending up to the left frontal subcortical regions also unchanged compared to prior study. No new intracranial hemorrhage or intra- or extra-axial fluid collections are identified. The left lateral ventricle, third and fourth ventricles are of normal size, shape, and morphology. The basal cisterns are patent. Leftward midline shift is approximately 2 mm as measured at the foramen of Monro, unchanged from yesterday. The visualized portions of the orbits, paranasal sinuses, and mastoids appearnormal. No acute calvarial fracture is identified. Partially visualized nasal tube IMPRESSION: 1. Redemonstration of evolving large right MCA territory acute to subacute infarct without definite evidence of hemorrhagic transformation. Unchanged minimal leftward midline shift of about 2 mm at the level of foramen of Monro and effacement of the left lateral ventricle. 2. Redemonstration of postsurgical changes from right-sided decompressive hemicraniectomy, unchanged compared to prior study. These results were discussed with stroke resident Dr Mendez by Dr. Miranda Bowen at8:05 AM on 10/26/2022 with read back confirmation and closed-loop communication. The report is dictated by Miranda Bowen MD (resident services coordinator) I, Oriana Suarez MD have personally reviewed and interpreted this examination/study. > Interpreting Provider: Oriana Suarez MD on 38:[address] CHEST ABDOMEN PELVIS W CONT Result Date: 10/25/2022 PROCEDURE: CT CHEST ABDOMEN PELVIS W CONT, DATE/TIME OF EXAM: 10/25/2022 12:56 PM, LOCATION [facility] INDICATION: I63.511: Right middle cerebral artery stroke [...] Neck and Axillae: Normal. Lungs: Subsegmental atelectasis ofthe posterior lungs. No pleural fluid or pneumothorax is present. There is a 3 mm nodule in the left upper lobe (image 47 series 5). Heart and Pericardium: The cardiac chambers are normal in size. Nopericardial fluid or thickening is present. Mediastinum and [...] groin. Subcutaneous gas in the lower left anteriorabdominal wall related to subcutaneous injections. Impression: 1.Occlusion [...] verification. > Dictated by Clarisa Cantrell MD (resident services coordinator). IAlexx have personally reviewed and interpreted this examination/study. 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 COMPARISON: Comparison is made with brain MR [address] head dated 10/23/2022 FINDINGS: There are postoperative ch anges of right hemicraniectomy. There is soft tissue thickening and skin carla overlying the operative defect. There is curvilinear fluid collection collection overlying the right cerebral convexity within the craniectomy defect containing some recent blood products and which measures approximately 22 mm in maximum thickness. There is a large area of recent infarction in the right cerebral hemisphere in the distribution in the distribution of the right middle cerebral artery. Mass effect is produced by this. There is a small amount of midline shift right to left of roughly 2 mm at the levelof the foramen of Monro. There is some compression of the right lateral ventricle. The left lateral ventricle, third, and fourth ventricles are normal in size. There are foci of decreased attenuationconsistent with small recent infarcts within the left frontal lobe and left martínez radiata. Bone window images demonstrate no signal suspicious lytic or blastic lesions. When today's study is compared to the parenchyma of 24 October [address] 23 October, there may be slightly less mass effectand midline shift on today's study and the fluid collection within the craniectomy defect overlyingthe lateral right cerebral hemisphere is slightly smaller. There has been interval removal of the drainage tube that was present within the craniectomy defect on previous brain CT and there is less ai r/gas within the operative defect relative to the previous brain CT. IMPRESSION: Redemonstrated postoperative changes consistent with right calvarial hemicraniectomy. Fluid collection overlying the lateral right cerebral hemisphere within the craniectomy defect containing some recent blood products. The overall size of this fluid collection is less than on previous study. In addition, there is less air/gas within this defect. Evolving large recent right cerebral hemisphere infarct with mass effect and approximately 2 mm of midline shift right to left. There appears to be slightly less mass effect and midline shift on today's study. Continued follow-up is recommended. Small recent cortical infarct in the lateral left frontal lobe as well as small recent infarc t in left martínez radiata which appears similar to previous study. Clinical correlation recommended.The report is dictated by Miranda Bowen MD (resident services coordinator) I, Joni Fabian MD have personally reviewed and interpreted this examination/study. > Interpreting Provider: Joni Fabian MD on 10/25/2022 2:[address] CARDIAC ANGIO STRUCT MORPH Result Date: 10/25/2022 PROCEDURE: CT CARDIAC ANGIO STRUCT MORPH, DATE/TIME OF EXAM: 10/23/2022 3:08 PM, LOCATION [facility] INDICATION: I63.411: Acute cerebrovascular accident (CVA) due to embolism of right middle cerebral artery (CMS/HCC) ADDITIONAL CLINICAL INFORMATION: Ordering Provider Reason For Exam: L atrial valve vegetations Technologist Note: Additional: COMPARISON: None. Procedure: CT structure and morphology with intravenous contrast material, including 3D image post-processing Acquisitionmode: Retrospective ECG gated. Contrast type and volume:Isovue .100 mL. Complications: None.. Imagequality: Good signal noise. There is motion artifact Heart rate: 99 bpm. Coronaries: The coronary arteries are not completely visualized due to motion artifact given the increase heart rate. Within the limitations, coronary arteries are normal in course and morphology and patent without calcification or plaque. Other cardiac findings: Left Atrium: The left atrium is normal size with no left atrial appendage filling defects. Left Ventricle: The ventricular cavity [...] the available limited view of the abdomen. Impression: 1. 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 2. Patent coronary vessels within the limitation of the motion artifact given the elevated heart during this exam > Interpreting Provider: Pepe Gonzalez MD on 10/25/2022 12:03 AM XR ABDOMEN KUB PORTABLE Result Date: 10/24/2022 PROCEDURE: XR ABDOMEN KUB PORTABLE, DATE/TIME OF EXAM: 10/24/2022 2:04 PM, LOCATION [facility] INDICATION: R47.1: Dysarthria ADDITIONAL CLINICAL INFORMATION: Ordering Provider ReasonFor Exam: ngt placement COMPARISON: Portable KUB dated 10/23/2022 FINDINGS/IMPRESSION: The enteric tube courses below the diaphragm with tip superimposing the gastric pyloric region. Drafted by Agnes Olmos DO (resident services coordinator). I, Vanessa Kumar MD have personally reviewed and interpreted this examination/study. > Interpreting Provider: Vanessa Kumar MD on 10/24/2022 2:17 PM MRI BRAIN WWO CONTRAST Result Date: 10/24/2022 PROCEDURE: MRI BRAIN WWO CONTRAST, DATE/TIME OF EXAM: 10/24/2022 10:56 AM, LOCATION [facility] INDICATION: I63.411: Acute cerebrovascular accident (CVA) due to embolism of right middle cerebral artery (CMS/HCC) ADDITIONAL CLINICAL INFORMATION: Ordering Provider Reason For Exam: Stroke workup Technologist Note: Does the patient have a defibrillator, pacemaker, aneurysm clips or implanted mechanical devices?->No Does the patient have metal implants or stents?->No Additional: None. EXAMINATION: Magnetic resonance imaging (MRI) of the brain without and with contrast CONTRAST: GADOBUTROL 1 MMOL/ML IV SS SO:9.5 mL TECHNIQUE: MRI of the brain was performed prior to and following the uneventful administration of 9.5 mL intravenous GADAVIST contrast according to standard protocol. COMPARISON: CT of the head from 10/23/2022. FINDINGS: Redemonstration of postoperative changes of decompressive right hemicraniectomy with expected interval evolution of the previously seen post surgical changes along the craniectomy site. Redemonstration of extra-axial collection along the craniectomy site containing extra-axial blood products and fluid, measuring approximately 2.4 cm in thickness, (series 9, image 13), previously measured approximately 2.5 cm, grossly unchanged from prior. Interval resolution/redistribution of the previously seen foci of pneumocephalus compared to the prior CT. Interval removal of the previously seen right intracranial pressure monitor. Redemonstration of extensive cytotoxic edema in the right frontotemporoparietal regions, the right insula, and the right basal ganglia, extending along the martínez radiata and the marginally along the lateral aspect of the right centrum semiovale compatible with evolving acute right MCA territory infarction. There is persistent local mass effect on the right cerebral hemisphere with effacement of the overlayingsulci, mild external herniation of the infarcted brain through the craniectomy defect, effacement of the right lateral ventricle, and approximately 3-4 mm lvpsa-[id number] midline shift at the level of the foramen of Monro, (series 13, image 18),, previously measured approximately 3 mm, (series 6, image 35), when remeasured, grossly similar to the prior. Extensive susceptibility artifacts along the craniectomy site compatible with expected postsurgical changes. There are additional scattered foci of restricted diffusion in the left frontoparietal region, extending along the subcortical white matter of the lateral left frontal lobe, the right martínez radiata, and the centrum semiovale, compatible with a small evolving acute to subacute infarcts. Otherwise, no new intracranial hemorrhage is identified. The ventricular caliber appears grossly stable compared to the prior. For reference, the diameter of the left ventricular trigone measures approximately 1.2 cm, (series 4, image 33), previously measured approximately 1.3 cm, (series 4, image 19). The basal cisterns are mildly effaced. The re maining ventricles are of normal size, shape, and morphology. Diffuse leptomeningeal enhancement along the right frontotemporoparietal infarcted area compatible with expected reactive changes. No enhancing lesions are otherwise identified. The corpus callosum and sella appear normal. The posterior fossa, brainstem, and craniocervical junction appear grossly stable. The visualized portions of the orbits appear grossly unremarkable. There is mild paranasal sinus disease. There is suspected minimal opacification in the right mastoid air cells. The remaining mastoid air cells appear grossly clear. Normal flow voids are demonstrated in the carotid arteries and basilar artery. The calvarium and visualized cervical spine otherwise appear normal. IMPRESSION: 1.Redemonstration of postoperative changes of a right hemicraniectomy with expected postsurgical changes as outlined above. 2.Redemonstration of evolving large right MCA territory infarction with extensive cytotoxic edema and mild external herniation of the brain through the craniectomydefect. Persistent local mass effect on the right cerebral hemisphere, effacement of the right lateral ventricle, and approximately 3-4 mm [id number] midline shift, grossly similar to the prior. 3.Mild dilation of the left lateral ventricle may represent subtle left ventricular entrapment, overall grossly similar to prior. 4.Additional multiple foci of abnormal diffusion within the left frontotemporal lobes with associated T2 FLAIR hyperintensity representing additional small acute to subacute infarcts, likely of cardioembolic etiology. Findings communicated to Dr. Mohr by Dr. Major at 1138 hours on 10/24/2022 with readback comprehension and verification. Report dictated by Tim Major MD (resident services coordinator). Jasper Ornelas MD have personally reviewed and interpreted this examination/study. > Interpreting Provider: Jasper Sifuentes MD on 10/24/2022 1:59 PM XR CHEST 1VW PORTABLE Result Date: 10/24/2022 PROCEDURE: XR CHEST 1VW PORTABLE, DATE/TIME OF EXAM: 10/23/2022 8:24 AM, LOCATION [facility] INDICATION: I63.511: Right middle cerebral artery stroke (CMS/HCC) ADDITIONAL CLINICAL INFORMATION: Ordering Provider Reason For Exam: OETT position COMPARISON: Chest radiograph dated 10/21/2022 FINDINGS/IMPRESSION: The enteric tube courses below the diaphragm out of the inferior [id number]-[id number]. Endotracheal tube terminates in the midthoracic trachea. There is no focal consolidation. No pleural effusion or pneumothorax. The cardiomediastinal silhouette is normal. No acute osseous abnormality. Report dictated by Agnes Olmos DO (resident services coordinator). Vanessa Ornelas MD have personally reviewed and interpreted this examination/study. > Interpreting Provider: Vanessa Kumar MD on 10/24/2022 1:03 PM ECHO SARAH Result Date: 10/24/2022 ??? Aortic??Valve: Valve structure is normal. There is a 6 x 7 mm independently mobile mass on the left coronary cusp. Differential includes vegetation (non- bacterial thrombotic endocarditis, infective endocarditis) vs less likely fibroelastoma. ??? Left??Atrium: No right to left intracardiac or extracardiac shunt present viewable with agitated saline, color Doppler and Valsalva maneuver. Normal sized appendage. Normal appendage flow velocity. No thrombus present in the left atrial appendage (MADELEINE). ??? Left??Ventricle: Left ventricle size is normal. Hyperdynamic systolic function with a visually estimated EF of 75 - 80%. ??? No hemodynamically significant valvular abnormality. XR ABDOMEN KUB PORTABLE Result Date: 10/24/2022 PROCEDURE: XR ABDOMEN KUB PORTABLE, DATE/TIME OF EXAM: 10/23/2022 1:53 PM, LOCATION [facility] INDICATION: R47.1: Dysarthria ADDITIONAL CLINICAL INFORMATION: Ordering Provider ReasonFor Exam: NGT placement COMPARISON: Portable KUB dated 10/20/2022 FINDINGS/IMPRESSION: The enteric tube courses below the diaphragm with tip superimposing the stomach. Drafted by Agnes Olmos DO (resident services coordinator). I, Vanessa Kumar MD have personally reviewed and interpreted this examination/study. 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 EXAMINATION: Computed tomography (CT) of the head without contrast TECHNIQUE: CT of the head was performed without contrast according to standard protocol. CT dose reduction technique was used, including Automated Exposure Control. COMPARISON: Comparison is made with a CT head dated 10/22/2022. FINDINGS: Redemonstration of postoperative changes consistent of a right hemicraniectomy with underlying extra-axial blood products along the lateral cerebral convexity and small foci of pneumocephalus, slightly decreased or redistributed compared to prior. Unchanged appearance of a right intracranial pressure monitor. Extensive cytotoxic edema and mass effect in the right MCA territory with associated diffusesulci effacement and right lateral ventricle effacement grossly unchanged from prior. There is a right to left midline shift measuring up to 2 mm, stable to mildly improved from prior. No new intracranial hemorrhage or intra- or extra-axial fluid collections are identified. The ventricular morphology is stable compared to prior exams. The basal cisterns are mildly effaced. The visualized portionsof the orbits appear grossly unremarkable. Minimal opacification in the left ethmoid air cells. Theimaged mastoid air cells appear grossly clear. A presumed nasogastric tube present. Mild dilation of the left lateral ventricle likely representing mild left ventricular entrapment. Hyperdensity along the right sylvian fissure compatible with right MCA thrombosis. No acute calvarial fracture is identified. There is soft tissue edema overlying the right hemicraniectomy site and right zygomatic region are essentially unchanged from prior. IMPRESSION: 1.Redemonstration of postsurgical changes of decompressive craniectomy and evolving right middle cerebral artery territory infarct. 2.No hemorrhagic transformation. 3.Extensive cytotoxic edema and mass effect with approximately 2 mm midline shift, [place] similar or slightly improved from prior. 4.Stable right intracranial pressure monitor. The report is dictated by Miranda Bowen MD(resident services coordinator) I, Jasper Sifuentes MD have personally reviewed and interpreted this examination/study. 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 COMPARISON: No prior study is available for comparison at the time of this dictation. FINDINGS: Redemonstration of post surgical changes of a right hemicraniectomy, and a right MCA infarct. Stable appearance of right intracran ial pressure monitor. There are extra-axial blood products along the right lateral cerebral convexity at the craniectomy site with associated pneumocephalus consistent with postsurgical changes. There is extensive edema and mass effect in the right MCA territory. There is sulcal effacement and effac ement of the right lateral ventricle. There is right to left midline shift measuring up to 4 mm, stable from prior There is no evidence of new acute intracranial hemorrhage. The ventricular morphology is stable compared to prior examination. The basilar cisterns are patent. The orbits appear normal. The paranasal sinuses are clear. The mastoid air cells are clear. IMPRESSION: 1.Redemonstration of postsurgical changes of decompressive right hemicraniectomy for evolving right middle cerebral artery territory infarct. There is significant edema and mass effect with approximately 4 mm of midline shift, unchanged from prior. No evidence of new acute intracranial hemorrhage. > Interpreting Provider: Lonnie Rae MD on 10/22/2022 3:[address] HEAD WO CONTRAST Result Date: 10/22/2022 PROCEDURE: CT HEAD WO CONTRAST DATE/TIME OF EXAM: 10/22/2022 2:33 PM CLINICAL INFORMATION: None relevant/not provided if blank. 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 FINDINGS: Redemonstration of post surgical changes of a right hemicraniectomy, and a right MCA infarct. Stable appearance of right intracranial pressuremonitor. There are extra-axial blood products along the right lateral cerebral convexity at the craniectomy site with associated pneumocephalus consistent with postsurgical changes. There is extensive edema and mass effect in the right MCA territory. There is sulcal effacement and effacement of theright lateral ventricle. There is right to left midline shift measuring up to 4 mm, stable from prior There is no evidence of new acute intracranial hemorrhage. The ventricular morphology is stable compared to prior examination. The basilar cisterns are patent. The orbits appear normal. The paranasal sinuses are clear. The mastoid air cells are clear. IMPRESSION: 1.Stable appearance of postsurgical changes of decompressive right hemicraniectomy for evolving right middle cerebral artery territory infarct. There is significant edema and mass effect with approximately 4 mm of midline shift, unchanged from prior. No evidence of new acute intracranial hemorrhage. Report dictated by Lorenzo Horta MD (nursing resident). I, Lonnie Rae MD have personally reviewed and interpreted this examination/study. > Interpreting Provider: Lonnie Rae MD on 10/22/2022 3:10 PM XR CHEST 1VW PORTABLE Result Date: 10/21/2022 PROCEDURE: XR CHEST 1VW PORTABLE, DATE/TIME OF EXAM: 10/21/2022 8:53 AM, LOCATION [facility] INDICATION: R53.1: Weakness ADDITIONAL CLINICAL INFORMATION: Ordering Provider Reason ForExam: post intubation COMPARISON: None. Chest radiograph FINDINGS/IMPRESSION: Lines, tubes, hardware: * An endotracheal tube seen with the tip appropriately positioned in the mid thoracic trachea. * Enteric tube is seen with its tip below the diaphragm out of the field of view. Minimal right basilar airspace opacification. Otherwise, no confluent consolidation. No pneumothorax is visible. The cardiomediastinal silhouette is normal. The visible bony thorax is intact. Report dictated by Christopher Tobin MD, MD (resident services coordinator). I, HEATHER FREGOSO MD have personally reviewed and interpreted this examination/study. > Interpreting Provider: HEATHER FREGOSO MD on 10/21/2022 5:59 PM ECHO TRANSTHORACIC W BUBBLE STUDY Result Date: 10/20/2022 ??? Left??Ventricle: Left ventricle size is normal. Normal wall thickness. Normal systolic functionwith a visually estimated EF of 60 - 65%. Normal wall motion. Normal diastolic function. ??? NormalRV size and systolic function. ??? No significant valvular abnormalities. ??? Bubble study negativefor shunt. ??? Normal IVC and visualized portion of aorta. CT HEAD WO CONTRAST Result Date: 10/20/2022 DATE/TIME OF EXAM: 10/20/2022 9:13 PM, LOCATION [facility] INDICATION: I63.411: Acute cerebrovascular accident (CVA) due to embolism of right middle cerebral artery (CMS/HCC) ADDITIONAL CLINICAL INFORMATION: Ordering Provider Reason For Exam: [facility] COMPARISON: Multiple prior studies, most recently CT head dated 10/20/2022 at 8:19 AM TECHNIQUE: CT of the head was performed withoutcontrast according to standard protocol. FINDINGS: There has been interval postsurgical changes of right hemicraniectomy for management of cerebral edema following right MCA territory infarct. A right-sided subdural drain is in place. There is redemonstration of evolving right middle cerebral artery territory infarct, with associated edema and mass effect with sulcal effacement, effacement of theright lateral ventricle, and tofey-[id number]-[id number] midline shift measuring up to 4 mm and stable from prior(series 5, image 36). A catheter is seen terminating within the region of the right parietal lobe, likely representing an ICP monitor. No evidence of acute intracranial hemorrhage. The ventricular morphology is stable from prior, without evidence of obstructive hydrocephalus. The basilar cisterns are patent. The scott-white matter differentiation otherwise appears normal. The orbits appear normal.The paranasal sinuses are clear. The mastoid air cells are clear. No soft tissue abnormality is identified. IMPRESSION: Interval postsurgical changes of decompressive right hemicraniectomy with ICP monitor and subdural drain in place. 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 > Dictated by Bassam Jovel M.D. (nursing resident) IGonzalez MD have personally reviewed and interpreted this examination/study. > Interpreting Provider: Gonzalez Velasco MD on 10/20/2022 11:06 PM XR ABDOMEN KUB PORTABLE Result Date: 10/20/2022 PROCEDURE: XR ABDOMEN KUB PORTABLE DATE/TIME OF EXAM: 10/20/2022 12:44 PM Indication: I63.511: Rightmiddle cerebral artery stroke (CMS/HCC) Evaluation of NG tube placement COMPARISON: None. FINDINGS/IMPRESSION: An enteric tube is seen coursing into the stomach with its tip and side-port in the gastric body. Report dictated by Royer Stovall MD (resident services coordinator). Amanda Ornelas MD have personally reviewed and interpreted this examination/study. > Interpreting Provider: Amanda Prieto MD on 10/20/2022 3:[address] HEAD NON CONTRAST Result Date: 10/20/2022 PROCEDURE: CT HEAD WO CONTRAST DATE/TIME OF EXAM: 10/20/2022 8:19 AM CLINICAL INFORMATION: None relevant/not provided if blank. Indication: R44.9: Left-sided sensory deficit present Additional History: Follow-up of acute stroke COMPARISON: Noncontrast brain CT 19 October 2022. TECHNIQUE: Noncontrast CT brain was performed utilizing standard protocol. CT dose reduction technique was used, including Automated Exposure Control. FINDINGS: There is no definite acute intracranial hemorrhage. There is alarge confluent area of decreased attenuation within the right cerebral hemisphere consistent with a large acute infarct in the distribution of the right middle cerebral artery. Mass effect is produced approximately 4 mm of midline shift right to left. There is some mild effacement of the right side of the suprasellar cistern. There is increased attenuation within the region of the right middle cerebral artery likely representing thrombus. There is some effacement of the right lateral and third ventricles due to the mass effect related to the acute infarct. The left lateral and fourth ventricles are within normal limits in size. No definite areas of abnormal attenuation within the left cerebral hemisphere. Bone window images are negative for depressed skull fracture. When comparison is made to the previous study of 19 October 2022 there has been progression of the acute infarct in the right middle cerebral artery distribution which is larger in size and with new mass effect and midlineshift. IMPRESSION: Findings consistent with a large acute area of infarction in the right cerebral hemisphere in the distribution of the right middle cerebral artery with mass effect and approximately 4 mm of midline shift right to left. There is no definite hemorrhagic transformation. There is hyperdensity of the right middle cerebral artery likely representing thrombus. Clinical correlation and continued close interval follow-up are recommended. Results discussed with the stroke team physician, Dr. Stephanie Hester, on 20 October 2022 approximately 1225 hours. > Interpreting Provider: Joni Fabian MD on 10/20/2022 12:[address] ANGIO BRAIN NECK STROKE Result Date: 10/19/2022 PROCEDURE: CT ANGIO BRAIN NECK STROKE, DATE/TIME OF EXAM: 10/19/2022 8:16 AM, LOCATION [facility] INDICATION: Code Stroke ADDITIONAL CLINICAL INFORMATION: Ordering Provider Reason For Exam: Technologist Note: Additional: EXAMINATION: 1. Computed tomographic (CT) angiography of the head with contrast 2. CT angiography of the neck with contrast TECHNIQUE: CT angiography of the headand neck was obtained after the uneventful administration [...] a concurrent noncontrasted head CT for detailed intracranialfindings including findings suggesting an acute right MCA [...] arteries are patent. The basilar artery is patentpatent. 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 IMPRESSION: 1. [...] Lonnie Rae MD on 10/19/2022 8:[address] BRAIN - Stroke Result Date: 10/19/2022 PROCEDURE: CT BRAIN STROKE, DATE/TIME OF EXAM: 10/19/2022 8:04 AM, LOCATION [facility] INDICATION: Code Stroke ADDITIONAL CLINICAL INFORMATION: Ordering [...] of scott-white matter differentiation in the right frontotemporallobes and the right insula, concerning for an acute infarct. There is suggestion of a hyperdense right MCA likely represent acute thrombus (series 5 image 25). No acute intracranial hemorrhage or intra- or extra-axial fluid collections are identified. The ventricles are of normal size, shape, and morphology. The basal cisterns are patent. No mass effect or midline shift is seen. The scott-white mat ter differentiation is normal. The visualized portions of [...] Lonnie Rae MD on 10/19/2022 8:15 AM Right middle cerebral artery stroke (CMS/HCC) (POA: Unknown) Acute cerebrovascular accident (CVA) due to embolism of right middle cerebral artery (CMS/HCC) (POA: Yes) Nihss score 9 (POA: Yes) Received intravenous tissue plasminogen activator (tPA) in emergency department (POA: Yes) GERD (gastroesophageal reflux disease) (POA: Yes) Hemianopsia (POA: Yes) Weakness (POA: Yes) Left-sided sensory deficit present (POA: Yes) Gaze palsy (POA: Yes) Migraine (POA: Unknown) Hypertension (POA: Unknown) Presence of externally removable percutaneous endoscopic gastrostomy (PEG) tube (CMS/HCC) (POA: Unknown) Anemia (POA: Yes) Hepatocellular injury (POA: No) Assessment Consuelo Stock Mehnaz??is a 41 year old??female who??presented on 10/19 with Right MCA syndrome ??s/p TNK. CTA 1 M1 occlusion. S/P mechanical thrombectomy with R M1 recanalization and TICI2b. CT 10/20/22 with edema and mild shift. S/P decompressive right hemicraniectomy. Echo showed a??mobile??aortic valve vegetation.??MRI brain with scattered cortical R hemisphere infarcts with petechiae. ?? Stroke Type:??Ischemic Stroke Mechanism:??Cardioembolic Plan TIA/Stroke Workup; complete -R M1 ischemic stroke; active - s/p TICI2b revascularization, TNK - s/p decompressive hemicrani on 10/20 for malignant MCA - HbA1C: 6.0, LDL: 91, Cardiac Enzymes; wnl - atorvastatin 80 mg -??Warfarin bridge with Lovenox , hold warfarin d/t plan for LP- last lovenox last night - LP today ?? Core Measures TNK??administration: yes Anti-thrombotic: holding while on AC Statin:??atorvastatin 80mg DVT prophylaxis:??on lovenox 1mg/kg (but on hold today for IR intervention for LP) PEG tube ?? Migraine -??On??verapamil 40 TID; no concerns for headaches currently ?? GENESIS -??not currently on??home amitriptyline ?? 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 (d/c) and on doxy - Continue Anticoag -??Appreciate??ID recs??after??repeat TTE ?? - Cardiology will repeat SARAH OP setup after completing abx. ?? Fever - Blood cx still negative, - d-dimer high,??US extremities b/l UE??shows superficial thrombus in cephalic veins - ID on board. - CT abd shows concerns for abscess under peg and hematoma over femoral vessels underwent procedureon 11/10 - Cardiology, IR, vascular surgery, acute care surgery aware - ID recs continue Vanc+Doxycycline and add meropenem, stopped cefepime and flagyl 11/12 - Advised to stop vancomycin due to concerns for drug-induced fever (11/12; no fever since stopped) - ID recs LP, INR 1.1 today, called neuroradiology??for LP and planned for tomorrow (not on any anticoagulation currently; IR confirmed no need for NPO prior) - Currently on meropenem and doxy (end dt 11/22) ?? Leucopenia resolved - Hematology consulted - ID aware- no recs from them - Pt on prolonged antibiotic course currently ?? Eosinophilia - IM did not have any recs and deemed 2/2 beta lactams ?? 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 HTN - home metop??25 mg bid ?? Transamnitis -??stable transamnitis - Medicine consulted; deemed likely 2/2 cefepime induced -??RUQ U/S normal - reassuring labs ?? Blood Pressure Goals: SBP <160, map >70 ?? Vit D deficiency - Vit D 2,000 U daily ?? Urinary Retention - Urology following and will have outpatient trial in 1 month ?? Skin Rash: Consulted dermatology, rash improved Triamcinolone ointment ? Individual Modifiable Risk Factors Hypertension:??no Hyperlipidemia:??no Diabetes:??no Atrial Fibrillation:??no Tobacco:??no ?? Family updated this morning. ?? Case findings discussed with Dr. Antunez, Stroke Attending. Karishma Ojeda MD Neurology Resident * Radha Covarrubias RN - 11/14/2022 5:22 PM CDT Problem: ELOPEMENT/ABDUCTION Goal: Risk for elopement &/or abduction during hospitalization is minimized Outcome: Progressing Problem: Pain/Discomfort Goal: Patient uses pharmacological and non-pharmacological pain management strategies. Outcome: Progressing Goal: Patient verbalizes acceptable level of pain relief and ability to engage in desired activity. Outcome: Progressing Problem: Mobility Goal: Patient's mobility/activity will be maintained as optimum level for age, diagnosis and physical limitations Outcome: Progressing Goal: Continuum of care needs are further met through referral to outpatient services when appropriate. Outcome: Progressing Goal: Patient reports the ability to perform Activities of Daily Living. Outcome: Progressing Problem: Communication Impairment/Dysarthria Goal: Ability to express needs and understand communication Outcome: Progressing Problem: Nutrition Goal: Nutritional status is improving Outcome: Progressing Problem: Glycemic Control Goal: Clinical indication of glycemia balance is achieved Outcome: Progressing Problem: Knowledge Deficit,Education,Discharge Plan Goal: The patient/family will understand cerebrovascular disease and its symptoms, treatment and management Outcome: Progressing Problem: Oral Intake: Inadequate oral intake Goal: Total intake will meet estimated nutrient needs Outcome: Progressing Problem: Swallowing Goal: LTG - Patient will tolerate the least restrictive diet consistency to allow for safe consumption of daily meals Outcome: Progressing Goal: STG - Patient will participate in instrumental assessment of swallowing as appropriate Outcome: Progressing Goal: STG - Patient will tolerate therapeutic trials of recommended consistency without clincial signs and symptoms of aspiration Outcome: Progressing Goal: STG - Patient will tolerate recommended food and liquid consistencies without clinical signs and symptoms of aspiration Outcome: Progressing Goal: STG - Patient will complete swallowing exercises Outcome: Progressing Goal: STG - Patient/family will complete oral motor exercises for improved bolus control Outcome: Progressing Problem: Transfers Goal: STG - Transfer from bed to chair Outcome: Progressing Problem: Risk for Violence: Self-Directed or Other Directed Description: Diagnosis: Risk for self-directed Violence or Risk for Directed Violence Risk Factors: Biochemical/neurologic imbalances, impulsivity, manic excitement, psychotic symptomatology, rage reaction, restlessness Possibly Evidenced By: agitated behaviors, delusional thinking, hallucinations, loud/threatening/profane speech, poor impulse control, provocative behaviors, verbal threats against others, verbal threats against self Goal: Patient will verbalize control of feelings. Outcome: Progressing Goal: Patient will respond to interventions when potential or actual loss of control occurs. Outcome: Progressing Goal: Patient will refrain from provoking others to physical harm. Outcome: Progressing Goal: Patient will display nonviolent behaviors toward others in the hospital, with the aid of medications and nursing interventions. Outcome: Progressing Goal: Patient will seek help when experiencing aggressive impulses. Outcome: Progressing Goal: Patient will refrain from verbal threats and loud, profrane language toward others. Outcome: Progressing Goal: Patient will be safe and free from injury. Outcome: Progressing Problem: Skin Integrity Goal: Skin integrity is maintained or improved Outcome: Progressing Problem: Neurological Deficit Goal: Neurological status is stable or improving Outcome: Progressing * Shania Troy OT - 11/14/2022 3:13 PM CDT [facility] Physical Medicine and Rehabilitation Occupational Therapy Progress Note Patient: Consuelo Darby Med Record Number: [id number] Date of : 1980 Age: [age] year old PPE worn by staff: gloves;mask - surgical services coordinator: Cheli Reevaluation not indicated this date s/p OR on 11/10 as pt with no significant change in functional ability. Recommendations: Discharge OT Discharge Recommendations: Patient would benefit from intensive 3-hour multidisciplinary therapy This recommendation is made due to ongoing intensive OT functional needs: not at baseline due to impaired ability to complete ADL's;functional mobility is significantly below baseline;patient demonstrates a significant functional decline and would benefit from skilled therapy intervention to restore function;patient has the ability to progress and demonstrate measurable gains as a result of skilled therapy Recommended Transportation Method: Stretcher/Ambulance Nurse and Physical Therapy contacted regarding patient status and/or discharge plan. Activity Level: up ad bigg PRECAUTIONS: Falls, skin, helmet, SBP <160 SUBJECTIVE: Subjective: Pt able to speak this date, stating answers to orientation questions and simple closed ended questions. Pain Assessment: Pain Location #1 Pain Scale/Observation: Numeric (0-10) Pain Rating Score #1: ( sore ) Sedation Level #1: 1-Awake and alert Pain Location : Abdomen OBJECTIVE: At start of therapy session, patient found in bed General Appearance: Pt in bed upon arrival in [facility], finishing with PT. LDA: PIV, PEG, puentes catheter Vitals: (*Assess the 3 levels of oxygen saturations both for room air and 02 unless rest on room air is 88% or less). Rest BP: 93/63 HR: 84 Sp02 Room Air Observations: VSS. Mental Status/Cognition: Level of Consciousness-Adult: Alert Orientation Level: Oriented X4 Cognition: Follows one step commands;Attention/concentration-decreased;Processing-delayed Mobility: a gait belt and non-slip socks were used for all out of bed activity this date. Bed Mobility: Rolling: Maximal Assistance to Left Supine to Sit: Maximum Assistance;X 2 Sit to Supine: Moderate Assistance;X 2 Transfers: Sit to Stand: Activity Does Not Occur Stand to Sit: Activity Does Not Occur Transfer Device: Gait belt (bilateral handheld assist) Balance: Max A for static sitting EOB for 7 min. Pt with observed difficulty self correcting to midline when external support is briefly taken away. Pt impulsively laying back down, stating I'm tired. Pt able to accurately identify # of fingers being held up in R and partial L visual powell 5/5 times. Pt requires verbal and tactile cuing to turn head to L to search for OT fingers. Pt unable to visually track to L past midline and is unable to detect visual stimuli beyond ~45 degrees from midlineto L. ACTIVITY TOLERANCE: Patient's activity tolerance: fair minus Modified Maryann: Current Modified Maryann Score: 5 AM-PAC 6 Clicks Daily Activity Raw Score:: 9 TREATMENT/INTERVENTIONS: Cognitive retraining Functional transfer training Endurance training Bed mobility Energy conservation Safety awareness EDUCATION: While performing OT, Patient was instructed in:functional mobility training, self-care training, cognitive retraining, energy conservation, safety awareness/fall precautions , stroke education and precautions, use of call light Presented to patient who demonstrates Questionable understanding of instructions given. INFORMED CONSENT TO TREATMENT: Plan of care is discussed but patient with questionable understanding. ASSESSMENT: Patient continues to benefit from skilled Occupational Therapy to achieve the following functional goals. Short Term Goals: Goal Formation With patient/family Patient will increase orientation to?person, place, time and situation Patient will perform supine to/from sit??with moderate assist and X 2 Patient will tolerate treatment??20 minutes, with good endurance and with minimal pain Group Home Goal(s): Patient to discharge to appropriate next level of inpatient care Plan: Patient continues to benefit from skilled therapy services., Continue with goals as established. If patient is discharged from the facility, this note serves as a discharge summary if further occupational therapy visits did not occur. Refer to filed flowsheet for further details. Following therapy session, patient left in bed, with bed alarm on , with call light within reach, with family in room, with RNRadha aware, with therapy cues visible on white board. * Jerry Leigh SLP - 11/14/2022 3:01 PM CDT [facility] Physical Medicine and Rehabilitation Swallow and Speech Treatment Patient: Consuelo Darby Med Record Number: [id number] Date of : 1980 Age: [age] year old PPE: PPE worn by staff: gloves;mask - surgical PPE worn by patient: gown - patient, clean;socks - clean Impressions: Patient's swallow function and communication were assessed at bedside. Patient completed trial of ice chips with delayed initiation and A-P transit but no overt s/s of aspiration. Patient was able to state her name, month, house address, current location, spouse's name, etc. Patient isokay for PRN ice chips- with supervision. ST will plan on completing speech language assessment during the next session. Recommendations: Diet Liquids Recommendation: NPO Diet Solids Recommendation: NPO Recommended Form of Meds: Feeding Tube Recommended Tests/Consults: Recommendations: Dysphagia Treatment; Ice chips- PRN- with supervision Discharge Recommendations: Speech therapy is recommended to improve swallow function and communication. SUBJECTIVE: Patient Goals: No goals at this time Pain Assessment: No pain reported or observed at this time OBJECTIVE: Level of Consciousness: alert Orientation Level: oriented to person Positioning: Upright in bed Respiratory Status: room air Swallow Trials: Ice chips: Presentation: Spoon-Assisted Oral: Increased Anterior to Posterior Transit;Delayed Initiation;Impaired Mastication Pharyngeal: Delayed Swallow;Decreased Laryngeal Elevation Puree: Presentation: Spoon-Assisted Oral: Delayed Initiation;Increased Anterior to Posterior Transit Pharyngeal: Absent Swallow Assessment: Risk For Aspiration: Moderate Primary Diagnostic Impression - Oral: Moderate Primary Diagnostic Impression - Pharyngeal: Moderate Treatment/Education/Interventions: While performing SIGNALING PROJECT ENGINEER, Patient and sister was instructed in: goals of treatment , diet/liquid recommendations, swallowing strategies/aspiration precautions, clinical signs of aspiration and recommendations for NPO status given patient's elevated aspiration risk. Patient demonstrated Good understanding of instructions given. Physician and Nurse contacted regarding results of treatment session. INFORMED CONSENT TO TREATMENT: Plan of care including recommended therapy, goals and frequency, discussed with patient who understands and agrees to proceed. Short Term Goals Patient will tolerate recommended food and liquid consistencies without clinical signs of aspiration., Patient will understand clinical signs of aspiration and aspiration precautions., Patient will follow recommended swallowing strategies. Environmental Marketer Goal (s): Patient to be independent/baseline with functional mobility and self care and be able to safely discharge to prior level of care. Jerry Valle M.A., [facility]-SIGNALING PROJECT ENGINEER Speech Language Pathologist [phone] * Solomon Brush DO - 11/14/2022 1:34 PM CDT [facility] MEDICINE CONSULTATION Patient: Consuelo Darby Age: [age] year old Date of : 1980 Date of Admission: 10/19/2022 Date: 11/14/2022 Reason for consult: elevated liver enzymes Consult team: Neuro stroke HISTORY: I saw Ms. Consuelo Darby in consultation at [facility] on 11/14/2022 for evaluation of her elevated liver enzymes. She is a 42 year old female with a history of GERD, HTN who hasunderwent an extended hospitalization due to complications relating to CVA for which she initially presented on 10/19/22. Found to have Right M1 occlusion s/p TNK and mechanical thrombectomy for LVO. Course further complicated by cerebral edema and midline shift s/p right hemicraniectomy. 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 Course further complicated by right femoral and iliac arterial occlusion which was repaired by vascular surgery 10/30. Peg tube placed 11/01. Had revision of PEG with gastropexy and retention sutures due to CT scan with fluid around PEG site. Medicine was consulted for elevated liver enzymes. Also has had recurrent fevers. This morning patient was awake and answered questions appropriately with hand gestures and mumbling. Endorsed no pain. PAST MEDICAL HISTORY: Past Medical History: Diagnosis Date ??? Abdominal pain, right upper quadrant ??? GERD (gastroesophageal reflux disease) ??? History of hypertension gestational hypertension PAST SURGICAL HISTORY: Past Surgical History: Procedure Laterality Date ??? [...] N/A; ESOPHAGOGASTRODUODENOSCOPY (EGD) DIAGNOSTIC with PEG Placement FAMILY HISTORY: Family History Problem Relation Name Age of Onset ??? Cancer Maternal Grandfather Lung ??? Diabetes Maternal Grandfather ??? Diabetes Maternal Grandmother ??? Hypertension Mother ??? Thyroid Disease Mother SOCIAL HISTORY: Social History Tobacco Use ??? Smoking status: Former Packs/day: 0.50 Types: Cigarettes Quit date: 2014 Years since quittin.6 ??? Smokeless tobacco: Never Vaping Use ??? Vaping Use: Never used Substance Use Topics ??? Alcohol use: No Alcohol/week: 0.0 - 1.7 standard drinks of alcohol Comment: Occasional ??? Drug use: No ALLERGIES: Allergies Allergen Reactions ??? 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 amitriptyline (Elavil) 50 MG tablet Take 2 (two) tablets by mouth at bedtime ??? Cetirizine HCl (ZYRTEC PO) Take 10 mg by mouth once daily ??? levonorgestrel-ethinyl estradiol (LESSINA-28) 0.1-20 MG-MCG tablet TAKE 1 TABLET BY MOUTH EVERYDAY FOR CONTROL Reasons: Control Treatment 84 tablet 4 ??? metoprolol tartrate IR (Lopressor) 25 MG tablet Take 1 (one) tablet by mouth 2 times daily ??? omeprazole (PriLOSEC) 20 MG capsule Take 20 mg by mouth daily before breakfast ??? verapamil SR 24hr (Verelan) 120 MG capsule Take 1 (one) capsule by mouth at bedtime ??? Vitamin D3, cholecalciferol, 50 MCG (2000 UT) tablet Take 2,000 Units by mouth once daily CURRENT MEDICATIONS: ??? 0.9% NaCl 10-40 mL Intracatheter q8h ??? 0.9% NaCl 3 mL Intracatheter q8h ??? doxycycline monohydrate 100 mg Enteral Tube q12h ??? guaiFENesin 10 mL Enteral Tube q12h ??? loratadine 10 mg Enteral Tube QDAY ??? meropenem 2,000 mg Intravenous q8h ??? metoprolol tartrate IR 25 mg Enteral Tube q12h ??? pantoprazole EC 40 mg Oral QDAY ??? perflutren lipid microsphere 0.5 mL Intravenous intra-Procedure multiple ??? tamsulosin 0.4 mg Enteral Tube QDAY ??? triamcinolone acetonide Topical BID ??? verapamil 40 mg Enteral Tube q8h ??? Vitamin D3 (cholecalciferol) 2,000 Units Enteral Tube QDAY VITAL SIGNS: Temp: [97.5 ??F (36.4 ??C)-97.9 ??F (36.6 ??C)] 97.5 ??F (36.4 ??C) Pulse: [76-91] 84 Resp: [16] 16 BP: (105-119)/(58-73) 111/73 PHYSICAL EXAM: Gen: Awake, alert, NAD Head: post surgical edema of right head and face Eyes: Conjunctivae/corneas clear, EOMI Nose: No drainage. Resp: CTAB, no wheezes/rales/rhonchi CV: RRR, S1S2, No M/R/G Abd: PEG site clean dry and intact, no tenderness to palpation in RUQ Ext: Right groin surgical incision clean dry and intactt DATA REVIEWED: LABS: CBC: Recent Labs Component Name 11/14/2223811/13/2220911/12/22 0532 10/23/22 01210/22/22 0153 WBC 4.7 2.7* 4.8 - - HGB 9.9* 9.8* 9.4* - - HCT 32.8* 30.8* 30.2* - - MCV 94.5 91.7 92.4 - - PLT - - - - 199 - = values in this interval not displayed. Coagulation Panel: Recent Labs Component Name 11/14/2223811/13/2220911/12/22 0532 PT 15.9* 17.7* 22.1* INR 1.3 1.5 2.0 PTT 45.9* 47.9* 102.7* BMP: Recent Labs Component Name 11/14/2223811/13/2220911/12/22 0532 NA 140 138 136 CL 104 107 105 CO2 25 23 21* BUN 11 11 13 CREATININE 0.51* 0.54* 0.59 CALCIUM 8.6 8.1* 7.8* Recent Labs Component Name 11/14/2223811/13/22 0210 11/12/22 0532 MAGNESIUM 2.0 2.2 1.7 Recent Labs Component Name 11/14/22 0239 11/13/22 0210 11/12/22 0532 PHOS 3.5 3.9 2.5* Hepatic Panel: Recent Labs Component Name 11/14/22 0239 11/13/22 0210 11/12/22 0532 AST 158* 195* 220* ALT 278* 286* 266* ALKPHOS 78 77 75 TBILI 0.3 0.3 0.3 DBILI 0.1 0.1 0.2 IBILI 0.2 0.2 0.1 ALB 2.4* 2.4* 2.5* ABG: Recent Labs Component Name 10/30/22 1333 10/30/22 1259 10/21/22 0801 PH 7.40 7.33* 7.40 PCO2 39 49* 31* PO2 228* 208* 143* Amylase/Lipase: Invalid input(s): AMYL, LIPA Thyroid Studies: Recent Labs Component Name 11/13/22 0210 TSH 5.706* Cardiac Enzymes: Recent Labs Component Name 11/13/22 1534 CKTOTAL 57 Lipid Panel: Recent Labs Component Name 10/20/22 0302 LDLCALC 91 HDL 42 ASSESSMENT & PLAN: #Hepatocellular Liver Injury - mild hepatocellular injury with improving liver function enzymes - suspect most likely drug induced liver injury from beta lactam antibiotics or statin. Now improving with change of antibiotic agent. Less likely ischemic liver but possible - TSH elevated with normal T4 indicative of most likely euthyroid sick syndrome, no further workup necessary at this time - RUQ US with largely normal findings, rules out structural, congestive, or thrombotic causes - CK normal rules out rhabdomyolysis - infectious workup to date negative: HIV negative, Hep C negative, Hep B immunity, CMV negative ?? Recommendations: - trend hepatic function panel daily x 3 days to monitor resolution, can transition to weekly - continue to hold statin, beta lactam abx - limit tylenol to max 2g daily - follow EBV PCR - Will place referral for follow up in [facility] outpatient within 2 weeks We will sign off. Thank you for your consultation, please do not hesitate to contact us with any questions or concerns. Patient seen and discussed with attending Dr. Cory Villarreal. Please note, recommendations are NOT final until attested/co-signed by the attending physician. Solomon Brush DO IM Resident PGY-1 [facility] Associated attestation - Cory Villarreal MD - 11/14/2022 4:39 PM CDT I have personally interviewed and independently examined patient, and discussed care with resident.I agree with documented history, physical, assessment and plan; please see resident note for details. Right middle cerebral artery stroke (CMS/HCC) (POA: Unknown) Acute cerebrovascular accident (CVA) due to embolism of right middle cerebral artery (CMS/HCC) (POA: Yes) Nihss score 9 (POA: Yes) Received intravenous tissue plasminogen activator (tPA) in emergency department (POA: Yes) GERD (gastroesophageal reflux disease) (POA: Yes) Hemianopsia (POA: Yes) Weakness (POA: Yes) Left-sided sensory deficit present (POA: Yes) Gaze palsy (POA: Yes) Migraine (POA: Unknown) Hypertension (POA: Unknown) Presence of externally removable percutaneous endoscopic gastrostomy (PEG) tube (CMS/HCC) (POA: Unknown) Anemia (POA: Yes) Hepatocellular injury (POA: No) I provide the following additions/corrections: 42 yo f PMH obesity, migraine, OCP use who presented 10/19/22 with Left neurological deficits admitted with R MCA M1 occlusion, NIHSS 7. S/p TNK and revascularization and hemicraniectomy 10/20 with slowly improving neurological exam. ID consulted for infectious evaluation of PEG tube insertion site and R groin vascular access site. 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 LP pending. Outpt hypercoaguable workup recommended. Today Ms Cordero is following commands, responding appropriately, minimally verbal, opens eyes, pupils equal. PEG site c/d/I. Medicine consulted for hepatocellular injury. 10/19 LFT enzymes normal, 11/05 cefepime initiated and 11/09 demonstrated hepatocellular injury ALT>AST. #Hepatocellular injury , resolving -Ferritin not indicated as patient without concomittant features, 2011 IGA TTG neg for celiac, viral testing neg to date (EBV pending), low likelihood of autoimmune etiology, imaging without acute findings of hepatic steatosis concerning for nafld, CK neg. -Most likely due to cefepime, which has now been discontinued. #Fevers, resolved Plan: Weekly CMP while LFT downtrend and outpt follow up of resolution of hepatocellular injury upon discharge via [facility]. Sister updated at bedside regarding hepatocellular injury evaluation Medicine to sign off; Do not hesitate to call with any new concerns or questions Date of Service: 11/14/2022 Cory Villarreal MD * Orquidea Pederson, RD/LD - 11/14/2022 1:20 PM CDT Clinical Nutrition Assessment Brief Synopsis: Patient is at Nutrition Risk; Specific criteria can be found in assessment below Nutrition Plan: NPO+TF (via PEG tube) Jevity 1.5 at 50 ml/hr. Provides 1800 kcal, 77 g protein, 259 g carbohydrate, 912 ml free water. + 150 ml free water flush q 4 hrs or per MD if not on additional IV fluids Recommendations to Physician: Continue current TF regimen as indicated; advance diet per ST Obtain new weight utilizing scale Comments: Pt scheduled for reassesment. Pt receiving continuous TFs at goal rate above; per documentation, pt tolerating TF regimen. Last BM today x 2; loose. 0 ml gastric resiguals reported today. Labs reviewed -- lytes wnl. Pt needs updated scaled weight. Recommend continuing current TF regimen to promote nutrition status. RD to follow per clinical nutrition guidelines. Assessment: Med/Surg History and Clinical Diagnoses: 41yo M who developed acute onset L sided weakness, L-sidedsensory deficits, and dysarthria. L sided weakness resolved in route and dysarthria improved in route. On arrival patient noted to L gaze plasy, L hemainopsia, mild dysarthria, and extinction. Height: 162.6 cm (5' 4 ) Weight: 95.3 kg (210 lb) BMI: Body mass index is 36.05 kg/m??. BMI Range: Severely Obese Class 2 IBW/lb (Calculated) Female: 120, Recent Weights/Methods 01/09/2020 1050 01/10/2021 1117 08/25/2021 0819 02/08/2022 1532 10/19/2022 0803 10/19/2022 0827 10/20/2022 1400 11/06/2022 1148 Weight: 86.5 kg (190 lb 9.6 oz) 80 kg (176 lb 6.4 oz) 84.8 kg (187 lb) 93.3 kg (205 lb 11.2 oz) 95.3 kg (210 lb 1.3 oz) 95.3 kg (210 lb 1.3 oz) 95.3 kg (210 lb) 95.3 kg (210 lb) Weight Method (Utilize Scales): -- -- Standing -- -- Bedscale -- -- Wt Comments: reviewed -- pt needs updated scaled weight Diet order accuracy Current diet order: NPO Current tube feeding order: Jevity 1.5 at 50 ml/hr Nutrition recommendation: agree with current nutrition order P.O.Intake for the past 48 hrs: % Meal Taken Av.8 % Min: 0 % Max: 2355 % Supplement(s) Consumed- Last 48 hours None Food Allergies: No known food allergies GI Concerns: None Chewing/Swallowing: Dysphagia Pain affecting intake: No Estimated Needs: KCAL: [id number] (30-35 kcal/kg IBW) Protein (g): 82g (1.5 g/kg IBW) Fluid (ml): 1 ml/kcal Needs based on: (IBW of 54.5kg) Recommended Access Route: TF Laboratory values: Recent Labs Component Name 11/14/22 0239 11/13/22 0210 11/12/22 0532 06/15/22 0757 12/09/18 0812 07/25/18205503/01/16 0817 BUN 11 11 13 - 10 7 9 CREATININE 0.51* 0.54* 0.59 - 0.82 0.93 0.60 NA 140 138 136 - - - - POTASSIUM 3.9 3.9 3.3* - 3.8 3.8 3.6 CL 104 107 105 - - - - CO2 25 23 21* - 24 21* 21* GLUCOSE 109 105 120* - 120* 105 83 CALCIUM 8.6 8.1* 7.8* - 9.4 9.2 8.1* PROT 6.5 6.5 6.5 - - - - ALB 2.4* 2.4* 2.5* - - - - TBILI 0.3 0.3 0.3 - - - - ALKPHOS 78 77 75 - 56 52 111 ALT 278* 286* 266* - 17 12* 21 AST 158* 195* 220* - 18 20 25 ANIONGAP 15 12 13 - 12 11 10 BCR 22 20 22 - - - - OSMOLALITY 290 286 283 - - - - AGRATIO 0.6* 0.6* 0.6* - - - - EGFR >90 >90 >90 - >60 >60 >60 EGFRAFR - - - - >60 >60 >60 - = values in this interval not displayed. Medications: Current Facility-Administered Medications Medication ??? 0.9% NaCl injection 10-40 mL ??? 0.9% NaCl injection 10-40 mL ??? 0.9% NaCl injection 3 mL And ??? 0.9% NaCl injection 3 mL ??? acetaminophen (Tylenol) tablet 500 mg ??? bisacodyl (Dulcolax) suppository 10 mg ??? diphenhydrAMINE-zinc acetate (Benadryl Extra Strength) 2-0.1 % cream ??? doxycycline monohydrate capsule 100 mg ??? guaiFENesin (Robitussin) solution 10 mL ??? loratadine (Claritin) tablet 10 mg ??? meropenem (Merrem) 2,000 mg in 0.9% NaCl IV 140 mL IVPB ??? metoprolol tartrate IR (Lopressor) tablet 25 mg ??? oxyCODONE (immediate release) (Roxicodone) tablet 5 mg ??? pantoprazole EC (Protonix) tablet 40 mg ??? perflutren lipid microsphere (Definity) injection 0.5 mL ??? polyethylene glycol 3350 (Miralax) packet 17 g ??? senna-docusate (Senokot-S) tablet 2 tablet ??? tamsulosin (Flomax) capsule 0.4 mg ??? triamcinolone acetonide (Kenalog) 0.1 % ointment ??? verapamil (Isoptin) tablet 40 mg ??? vitamin D3 (Cholecalciferol) 25 MCG (1000 UNITS) tablet 2,000 Units Skin/Wound: s/p R hemicraniectomy Education needed: Stroke Nutrition Therapy Education Provided: Not appropriate Nutrition Care Process (1) Nutrition Diagnostic Statement: Inadequate oral intake related to:: decreased ability to consume or tolerate food and/or fluids due to illness as evidenced by:: oral intake insufficient to meet estimated requirements Nutrition Diagnostic Statement Progress: Nutrition problem continues Nutrition Intervention: Enteral nutrition: Monitoring: TF, labs, meds, BM, weight Evaluation: Nutrition Goal: Total intake will meet estimated nutrient needs Nutrition Goal Timeframe: Throughout stay Nutrition Goal Progress: Continue with current goal Orquidea Pederson RD/MELVA DAILY Ascom: [id number] * Ascencion Rosa, PT - 11/14/2022 10:00 AM CDT [facility] Physical Medicine and Rehabilitation Physical Therapy Progress Note Patient: Consuelo Darby Med Record Number: [id number] Date of : 1980 Age: [age] year old PPE worn by staff: gloves;mask - procedural PPE worn by patient: gown - patient, clean;socks - clean Tech: Cheli Recommendations: PT Discharge Recommendations: Patient would benefit from intensive 3-hour multidisciplinary therapy This recommendation is made due to ongoing intensive PT functional needs: patient demonstrates a significant functional decline and would benefit from skilled therapy intervention to restore function;patient has the need for more than one skilled therapy service SUBJECTIVE: Subjective: Patient gives thumbs up when asked to participate in PT treatment. Noted whispered verbalizations this date. Pain Assessment: Pain Location #1 Pain Scale/Observation: Behaviors (patient shakes head 'no' when asked about pain) Behaviors/Assumed Pain Present : Calm PRECAUTIONS: Weight Bearing Status: (no restrictions) Activity Level: Up ad bigg Other Precautions: Fall, Helmet OBJECTIVE: At start of therapy session, patient found in bed, with no alarm and visitor present General Appearance: Adult female, in NAD; splints noted on LUE and LLE. Helmet donned in supine prior to upright activity LDAs: IV's: Peripheral line, Catheter, and PEG Tube Vitals: (*Assess the levels of oxygen saturations both for room air and 02 unless rest on room air is 88% or less). Pre Activity BP: 104/60 (74) HR: 87 Sp02 97% Room Air Post Activity BP: 93/63 (73) HR: 82 Sp02 98% Room Air Mental Status/Cognition: Level of Consciousness-Adult: Alert Orientation Level: Oriented to Person Cognition: Follows Commands-Consistent Mobility: A gait belt and non-slip socks were used for all out of bed activity this date. Bed Mobility: Rolling: Maximal Assistance to Left Supine to Sit: Moderate Assistance;X 2 (patient uses RUE and RLE to initiate transfer) with HOB in semi-fowlers position Sit to Supine: Moderate Assistance;X 2 Balance: Sitting - Static: Fair -;With One Upper Extremity Support Sitting - Dynamic: Poor +;With One Upper Extremity Support Therapeutic Exercises: Seated R hip flexion: x10 Seated BLE LAQ (RLE supporting LLE): x10 Seated trunk rotations to L side: 5 sec hold x5 Observations: patient requires intermittent assistance for sitting balance exercises ACTIVITY TOLERANCE: Patient's activity tolerance: fair. TREATMENT/INTERVENTIONS: Patient seen for bed mobility training, balance activities, seated therapeutic exercises, and monitoring of vitals Modified [place]: Current Modified Maryann Score: 5 AM-PAC 6 Clicks Mobility Raw Score:: 7 EDUCATION: While performing PT,??Patient??was instructed in: functional mobility training, weight bearing status, safety awareness/fall precautions, discharge planning, use of call light? Presented to patient who demonstrates??Fair??understanding of instructions given. ? ASSESSMENT: Patient would benefit from additional Physical Therapy sessions to achieve the following functionalgoals to enhance independence. ?? Short Term Goals: Goal Formation?Patient unable to participate in goal formulation Patient will perform bed mobility??with moderate assist Patient will transfer bed to/from chair??with maximal assist Patient will sit EOB x10 minutes with minimal assist ?? Environmental Marketer Goal(s): Patient to discharge to appropriate next level of inpatient care. ?? INFORMED CONSENT TO TREATMENT:? Plan of care including recommended therapy, goals and frequency, discussed with patient who??demonstrates understanding??and agrees to proceed. ?? Equipment Issued:??none? Plan:??Patient continues to benefit from skilled therapy services. If patient is discharged from the facility, this note serves as a discharge summary if further physical therapy visits did not occur. Refer to filed flowsheet for further details. Following therapy session, patient left in bed, with call light within reach, with family in room, with therapy cues visible on white board. * Karishma Ojeda MD - 11/14/2022 9:20 AM CDT Stroke Service Daily Progress Note Consuelo Darby Age: [age] year old Date of : 1980 Date of Admission: 10/19/2022 Hospital Day: 26 Subjective Consuelo Darby is a 41yo woman hemiplegic migraine,??GERD, GENESIS. who developed acute onset L sided weakness, L-sided sensory deficits, and dysarthria. L sided weakness resolved in route and dysarthriaimproved in route. On arrival patient noted to hae L gaze plasy, L hemainopsia, mild dysarthria, and extinction. NIHSS: 7. S/p TNK and ??TICI2b revascularization of the R MCA M1 occlusion.Repeat CTH showing edema in R MCA territory. On 10/20/22 patient taken for hemicraniectomy, post-op CTH showing stable midline shift. Initial hypercoag work up negative, repeat in 2 months. ?? -10/23- SARAH concerning for aortic cusp vegetations. [...] and patch angioplasty. 10/31: CT A/P obtained 2/2 concern for abscess by GI team while evaluating her for G tube 11/01 CT A/P obtained and no abscess was identified in the abdominal area. Postsurgical changes after vascular surgery. ?? 11/02 GI to take her to OR for G tube. Ready TTF. 11/03 start warfarin bridge 11/04 CT head for headache and eye discomfort after bumping her head on hemicrani site. NSGY aware and evaluated her. CT looks stable. 11/05 had a fever. Infectious workup initiated and ID reconsulted. Plan to broaden spectrum (currently on ceftriaxone + vanc, switch to cefe + vanc + doxycycline ) after blood cultures are taken 11/06: no acute event. On heparin gtt. Warfarin bridge. INR 1.4. 11/10: underwent gastric erosion for abscess underlying peg by ACS 11/12: vanc d/c for concerns abt drug fever ?? Interval History: Patient had no acute events occur overnight. Objective Patient Vitals for the past 24 hrs: BP Temp Temp src Pulse Resp SpO2 11/14/22 0758 105/58 97.9 ??F (36.6 ??C) Axillary 79 16 96 % 11/14/22 0408 112/61 97.8 ??F (36.6 ??C) Axillary 91 -- 99 % 11/13/22 2332 108/67 97.5 ??F (36.4 ??C) Axillary 82 -- 96 % 11/13/22 1930 119/70 97.8 ??F (36.6 ??C) Axillary 80 -- 98 % 11/13/22 1630 113/65 97.5 ??F (36.4 ??C) Axillary 76 16 99 % 11/13/22 1341 110/60 -- -- 80 -- -- 11/13/22 1215 115/68 97.2 ??F (36.2 ??C) Axillary 83 16 97 % 11/13/22 1214 115/68 97.2 ??F (36.2 ??C) Axillary 83 16 98 % Intake/Output Summary (Last 24 hours) at 11/14/2022 0921 Last data filed at 11/14/2022 0509 Gross per 24 hour Intake 747 ml Output 3050 ml Net -2303 ml Exam: Cortical Function Mental Status Awake, alert, follows basic commands Orientation REYNOLD Language No verbal output but family says she spoke words to them Visual Powell Intact bilaterally to confrontation Neglect No visual neglect noted, no tactile neglect noted ?? Cranial Nerves II Pupils 3 mm and bilaterally reactive to light. Fundoscopic exam not performed. VIII Hearing is intact bilaterally to voice. III/IV/ Extraocular muscles intact. No diplopia, ptosis, nystagmus or convergence abnormalities noted. IX/X REYNOLD V REYNOLD XI Head turning and shoulder shrug are intact. VII L facial palsy XII Tongue is midline with normal movements and no atrophy noted. ?? Motor Function Movement No abnormalities noted Bulk No abnormalities noted Tone No abnormalities noted ?? Moves RUE and RLE 4/5 strength, tries to withdraw to pain in LUE and LLE 2/5 in left side ?? Sensory Light Touch Symmetric and intact bilaterally Noxious Stimuli Symmetric and intact bilaterally ?? Labs: Recent Labs Component Name 11/14/2223811/13/2220911/12/22 0532 10/23/22 0129 10/22/22 0153 WBC 4.7 2.7* 4.8 - - RBC 3.47* 3.36* 3.27* - - HGB 9.9* 9.8* 9.4* - - HCT 32.8* 30.8* 30.2* - - PLT - - - - 199 - = values in this interval not displayed. Recent Labs Component Name 11/14/2223811/13/2220911/12/22 0532 NA 140 138 136 CL 104 107 105 CO2 25 23 21* BUN 11 11 13 CREATININE 0.51* 0.54* 0.59 CALCIUM 8.6 8.1* 7.8* No results for input(s): MG in the last 96174 hours. Recent Labs Component Name 11/14/2223811/13/2220911/12/22 0532 PHOS 3.5 3.9 2.5* Recent Labs Component Name 11/14/2223811/13/2220911/12/22 0532 PT 15.9* 17.7* 22.1* INR 1.3 1.5 2.0 PTT 45.9* 47.9* 102.7* No results for input(s): A1C in the last 20259 hours. Recent Labs Component Name 10/20/22 0302 06/15/22 0757 CHOL 173 204* HDL 42 37* LDLCALC 91 117* TRIG 201* 251* Recent Labs Component Name 11/13/22 021 TSH 5.706* Recent Labs Component Name 11/13/22 1534 CKTOTAL 57 XR CHEST 1VW PORTABLE Result Date: 11/13/2022 PROCEDURE: XR CHEST 1VW PORTABLE, DATE/TIME OF EXAM: 11/12/2022 8:45 PM, LOCATION [facility] INDICATION: R50.9: Fever, unspecified fever cause ADDITIONAL [...] abnormality. Report dictated by Agnes Olmos DO (resident services coordinator). I, Pepe Gonzalez MD have p ersonally reviewed and interpreted this examination/study. > Interpreting Provider: Pepe Gonzalez MD on 11/13/2022 11:59 AM MRI BRAIN WWO CONTRAST Result Date: 11/10/2022 PROCEDURE: MRI BRAIN WWO CONTRAST, DATE/TIME OF EXAM: 11/09/2022 11:51 PM, LOCATION [facility] INDICATION: R50.9: Fever, unspecified fever cause ADDITIONAL [...] enhancement along the soft tissues surrounding the extra- axial collection Redemonstration of extensive cytotoxic edema in the right frontotemporoparietal regions, the right insula, and the right basal ganglia, extending along the martínez radiata /right centrum semiovale compatible with evolving acute rightMCA territory infarction. Some of these lesions show persistent restricted diffusion including basal ganglia and the right periventricular white matter suggesting evolving infarction. There is persistent local mass effect on the right cerebral hemisphere with effacement of the overlaying sulci, mild external herniation of the infarcted brain through the craniectomy defect. Interval resolution of effacement of the right lateral ventricle and the [id number] midline shift. Extensive susceptibility artifacts along the [...] CT suggesting evolving cortical laminar necrosis. Interval resolutionof restricted diffusion along small areas of, left [...] stable. The visualized portions of the orbits appeargrossly unremarkable. No significant opacification of the paranasal or mastoid air cells.. Normal flow voids are demonstrated in the carotid arteries and basilar artery. The calvarium and visualized cervical spine otherwise appear normal. IMPRESSION: 1. Redemonstration of postsurgical changes from right decompressive hemicraniectomy andevolving large volume right MCA territory infarct as described above. Mild interval increase in thecaliber of lateral and third ventricles could be secondary to decreased mass effect, less likely hyd rocephalus, continued attention recommended on follow-up. 2. Interval [...] the extra-axial fluid collection overlying the craniectomy sitecould be secondary to evolving blood products/postsurgical changes versus secondary to superimposedinfection, clinical correlation is recommended. These findings were discussed with patient's care provider, Dr. Tucker, stroke team, by on 11/10/2022 11:59 AM with read back verification. > Interpreting Provider: Oriana Suarez MD on 11/10/2022 12:[address] ABDOMEN PELVIS W CONTRAST Result Date: 11/10/2022 PROCEDURE: CT ABDOMEN PELVIS W CONTRAST DATE/TIME OF EXAM: 11/09/2022 4:49 PM CLINICAL INFORMATION: None relevant/not provided if blank. 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 TECHNIQUE: CT of the abdomen and pelvis was performed following intravenous contrast utilizing standard protocol. CT dose reduction technique was used, including Automated Exposure Control. CONTRAST: IOPAMIDOL 76 % IV SOLN:100 mL FINDINGS: Lung bases are clear. Liver is normal. The gallbladder is absent. The spleen is normal. The pancreas is normal. There is a duodenal diverticulum. Both adrenal glands are normal. Both kidneys enhance symmetrically with no hydronephrosis. T he urinary bladder is decompressed with a Puentes catheter. Uterus is normal. A gastrostomy tube is present. There is a 2 cm rim-enhancing collection along the inferior aspect of the gastrostomy tube with small locule of gas seen on series 6 image 67 measuring 2.2 cm. There is no bowel obstruction. There is progressive soft tissue stranding with a mass in the right groin measuring 4 cm with small locules of gas, likely inflammatory mass. There is mass effect on the right femoral artery with mild narrowing as marked narrowing of the femoral vein, encased by the collection. Abdominal aorta is normal in caliber. The portal vein is patent. No suspicious osseous lytic or blastic lesion. IMPRESSION: 1. Progressive soft tissue stranding with gas in the right inguinal region with an inflammatory mass encasing the right femoral vessels with mild narrowing of the femoral artery and moderate narrowing of the femoral vein. This could represent a postsurgical hematoma. Recommend correlation with symptoms and signs of superinfection. 2. Interval placement of a gastrostomy tube with a small gas and fluid collection along the inferior aspect of the gastrostomy tube insertion site and stomach, measuring 2.2 cm. Findings communicated with Dr. Goyal at 2005 hours on 11/09/2022 > Interpreting Provider: Pepe Gonzalez MD on 11/10/2022 12:[address] ANGIO CHEST PULM EMBOLISM Result Date: 11/07/2022 PROCEDURE: CT ANGIO CHEST PULM EMBOLISM, DATE/TIME OF EXAM: 11/07/2022 5:25 PM, LOCATION [facility] INDICATION: R50.9: Fever, unspecified fever cause ADDITIONAL CLINICAL INFORMATION:Ordering Provider Reason For Exam: PE, fever COMPARISON: CT chest abdomen pelvis with contrast dated 10/25/2022. TECHNIQUE: CT of the chest was performed following the uneventful administration of 100mL of Isovue 370 intravenous contrast according to [...] suspicious pulmonary nodules are identified. No pleural fluidor pneumothorax is present. Heart and Pericardium: The cardiac chambers are normal in size. No pericardial fluid or thickening is present. There is no radiographic evidence of right heart strain. Mediastinum and Isabel: No enlarged lymph nodes are present. Bones and Chest Wall: Bone windows demonstrate no suspicious lytic or blastic lesions. The visible osseous structures are intact. Upper Abdomen:The visible portions of the upper abdominal organs are normal. Impression: 1.No evidence of acute pulmonary embolism. There is no radiographic evidence of right heart strain. 2.No other acute process within the chest. > Dictated by Tim Major MD (resident services coordinator). I, Alexx Lopez have personally reviewed and interpreted this examination/study. > Interpreting Provider: Alexx Lopez on 11/07/2022 10:30 PM ECHO COMPLETE Result Date: 11/07/2022 ??? Left??Ventricle: Left ventricle size is normal. EDV Index BP is 55.3 mL/m2. ESV Index BP is 18.3 mL/m2. Normal wall thickness. LVPWd is 1.01 cm. Ventricular mass is normal. Mass index 2D is 61.25g/m2. Normal systolic function with a visually estimated EF of 65 - 70%. EF by 2D Abarca biplane is 67%. Normal wall motion. Normal diastolic function. Normal mean left atrial pressure. Tissue Doppler velocity is reduced. MV peak E velocity is 102.695 cm/s. MV e' lateral velocity is 14.141 cm/s. MV e' septal velocity is 10.702 cm/s. ??? Right ventricle size is normal. Normal free wall thickness.RV wall thickness is 0.5 cm. Normal wall [...] mmHg). IVC is normal in size. SVC wasnot assessed. ??? Estimated sPAP is 23.0 mmHg. Estimated RVSP is 23.0 mmHg. RAP is 3.0 mmHg. Mean PA pressure of 15 mmHg. PVR < 1.5 Wood units. ? ? Normal valve morphology nd function. ? ? No pericardial effusion. ??? Normal sized annulus, sinus of Valsalva (aortic root), ascending aorta, aorticarch, descending aorta and abdominal aorta. Normal echocardiogram by 2D, m-mode, color and spectralDoppler echocardiography. IR INTRACRANIAL MECH THROMBECT Result Date: 11/07/2022 PROCEDURE: IR INTRACRANIAL MECH THROMBECT DATE/TIME OF EXAM: 10/19/2022 10:41 AM Procedure: CerebralAngiogram and Mechanical Thrombectomy for Acute Stroke Comparison Study: History: 41 year oldwith GERD, tobacco, p/w left sided neglect both sensory and visual, LWK 6:30, s/p TNK. CTA 1 M1 occlusion.Will take to IR for a mechanical thrombectomy. Notification Time: 8:21 NIHSS Score: 6 ASPECTS: 9 In-room: 8:48 Puncture Time: 8:53 Location of Clot: R M1 MCA Initial TICI: 0 Time to Clot: 9:37 Time to Reperfusion: 9:54 Final TICI: 2b Pit Slagman: Dr. Mitali Walter Meteorologist In Charge(s): Isak Monte Vessels: Ultrasound Guided Access of Femoral Artery Ultrasound Guided Access of Radial Artery Arterial line placement in the right radial artery Right Common Carotid Artery Angiogram: Cerebral Intracranial Catheterization Mechanical Thrombectomy with Retrievable Stent and Reperfusion Catheter Angiography Through the Existing Catheter Right Femoral Artery Angiogram Anesthesia: General Anesthesia was performed and monitored by an attending Anesthesiologist and their technical services assistant throughout the entirety of the case Procedural Detail: The risks, benefits, and alternatives to procedure were discussed in detail with the patient and her family. These included but were not limited to the risk of blood loss, vessel injury, stroke, renal injury, and contrast allergy. The patient was brought to the biplane a ngiography suite where she underwent prep and drape procedures. Limited ultrasound of the right radial artery demonstrated a patent vessel. A 5 new zealander sheath was placed in the radial artery and was used as an arterial line. Limited ultrasound of the common femoral artery demonstrated a patent vessel. The take off of the profunda and other arteries were identified. A scott scale image was documented. The right common femoral artery was accessed using a micropuncture needle. The needle entry was documented. Following a series of exchanges, a 8 Russian sheath sheath was placed in the right femoralartery. A Guide and a 6 Russian [employer]umb[employer] Select Serrano 2 catheter along with a stiff 0.035 Glidwirewas navigated into the aortic arch. The catheter was used to select brachiocephalic artery followedby the right common carotid artery and finally [...] then removed from the arterial system. After 5min were allowed to elapse for maximal [...] system. Hemostasis was achieved using a 8 Russian Angio-Seal closure device. Hemostasis was immediate at [...] revascularization on the MCA territory was visualized. Impression: 1. TICI2b revascularization of the R MCA M1 occlusion. Location of Clot: Right M1 segment Initial TICI: 0 Final TICI: 2b I, Dr. Jim Walter, was present and performed/supervised theentire procedure. IJim MD have personally reviewed and interpreted this examination/study. > Interpreting Provider: Jim Walter MD on 11/07/2022 9:21 AM XR ABDOMEN KUB PORTABLE Result Date: 11/06/2022 PROCEDURE: XR ABDOMEN KUB PORTABLE, DATE/TIME OF EXAM: 11/05/2022 5:28 PM, LOCATION [facility] INDICATION: R50.9: Fever, unspecified fever cause ADDITIONAL CLINICAL INFORMATION: Ordering Provider Reason For Exam: constipation Technologist Note: Additional: COMPARISON: 10/28/2022 KUBFINDINGS: PEG tube overlying left upper quadrant. Interval removal of enteric tube. There is no dilatation of small or large bowel. No pneumoperitoneum or pathological calcification is seen. The visible osseous structures are intact. The lung bases are clear. IMPRESSION: Non-obstructive bowel gas pattern. Report dictated by Mc Castro MD, (resident services coordinator). I, Pepe Gonzalez MD have personally reviewed and interpreted this examination/study. > Interpreting Provider: Pepe Gonzalez MD on 11/06/2022 10:[address] HEAD WO CONTRAST Result Date: 11/05/2022 PROCEDURE: CT HEAD WO CONTRAST DATE/TIME OF EXAM: 11/05/2022 12:11 AM CLINICAL INFORMATION: None relevant/not provided if blank. 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 CT dose reduction technique was used, including Automated Exposure Control. FINDINGS: Redemonstration of postsurgical changes from decompressive right frontal parietotemporal craniectomy. Unchanged herniation of the right frontoparietal and temporal lobes through the craniectomydefect. Unchanged evolving large right MCA territory infarction involving the right frontal parietal and temporal lobes. 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 No significant midline shift. Unchanged ex vacuo dilation of the right lateral ventricle. There is interval increase in cortical hyperdensity involving the right parietal, frontal lobes (image 11, 12, 14, series 3). Extra-axial fluid collection overlying the herniated right cerebral convexity measuring 1.5 cm in thickness, not significantly changed compared to prior study. No interval change in the scott- white matter differentiation. No significant opacification of the mastoid or paranasal sinuses. No acute soft tissue findings or calvarial findings. IMPRESSION: 1. Redemonstration of post surgical changes from decompressive hemicraniectomy and evolving large right MCA territory subacute infarct. Interval increased linear hyperdense foci along thecortex of right frontal and parietal lobes could be secondary to evolving cortical laminar necrosisversus developing petechial hemorrhages. Continued attention recommended on short-term follow-up. However no hematoma noted. No evidence of midline shift. These findings were discussed with patient'scare provider, Dr. Roth with neurology, by on 11/05/2022 5:46 PM with read back verification. > Interpreting Provider: Oriana Suarez MD on 11/05/2022 5:48 PM XR CHEST 1VW PORTABLE Result Date: 11/05/2022 PROCEDURE: XR CHEST 1VW PORTABLE, DATE/TIME OF EXAM: 11/05/2022 9:38 AM, LOCATION [facility] INDICATION: R50.9: Fever, unspecified fever cause ADDITIONAL CLINICAL INFORMATION: Ordering Provider Reason For Exam: consolidation COMPARISON: Chest radiograph 10/29/2022. FINDINGS/IMPRESSION: Previously seen feeding tube has been removed. These no confluent consolidation, pleural effusion, or pneumothorax is noted. The cardiomediastinal silhouette is stable. No acute osseous abnormality is noted. Report dictated by Christopher Tobin MD, MD (resident services coordinator). I, HEATHER FREGOSO MD have personally reviewed and interpreted this examination/study. > Interpreting Provider: HEATHER FREGOSO MD on 11/05/2022 2:[address] ABDOMEN WO CONTRAST Result Date: 11/02/2022 PROCEDURE: CT ABDOMEN WO CONTRAST, DATE/TIME OF EXAM: 2022 6:47 PM, LOCATION [facility] INDICATION: Z93.1: Presence of externally removable percutaneous endoscopic gastrostomy (PEG) tube (CMS/HCC) ADDITIONAL CLINICAL INFORMATION: Ordering Provider Reason For Exam: diffcult percutaneous PEG tube placement, rule out complications COMPARISON: CT abdomen pelvis with contrast dated 10/31/2022 TECHNIQUE: CT of the chest, abdomen, and pelvis was performed without contrast according to standard protocol. Findings: Evaluation of visceral and vascular structures is degraded due tolack of intravenous contrast administration. Lines/tubes: *Interval placement of a percutaneous trudi rostomy tube with intraluminal placement of tip and [...] Bone windows demonstrate no suspicious lytic or blasticlesions. The visible osseous structures are intact. Soft tissues: Normal. Impression: Interval placement of a percutaneous gastrostomy tube with intraluminal placement of tip and inflated balloon within the body/antrum of the stomach without complication, as clinically queried.. > Dictated by Tim Major MD (resident services coordinator). I, Pepe Gonzalez MD have personallyreviewed and interpreted this examination/study. > Interpreting Provider: Pepe Gonzalez MD on 11/02/2022 1:[address] ABDOMEN PELVIS W CONTRAST Result Date: 10/31/2022 PROCEDURE: CT ABDOMEN PELVIS W CONTRAST, DATE/TIME OF EXAM: 10/31/2022 10:16 AM, LOCATION [facility] INDICATION: I33.0: Aortic valve vegetation ADDITIONAL CLINICAL INFORMATION: Ordering Provider Reason For Exam: abscess? Technologist Note: Additional: COMPARISON: CT chest abdomen and pelvis 10/25/2022. TECHNIQUE: CT of the abdomen and pelvis was performed following the uneventful administration of 100 mL of Isovue 370 intravenous contrast according to standard protocol. Findings: Lower Chest: Bibasilar subsegmental atelectasis present. Liver: Normal. Gallbladder and Bile Ducts: The gallbladder is absent. Spleen: Normal. Pancreas: Normal. Adrenals: Normal. Kidneys: Normal. Bladder: A Puentes catheter terminates within a decompressed urinary bladder. Gastrointestinal: Enteric tube terminates in the stomach. Duodenal diverticulum present. The stomach and visualized loops of large and small bowel are otherwise unremarkable. Normal appendix. Mesentery/Peritoneum/Retroperitoneum: Normal. Reproductive Organs: The uterus is normal. Vasculature: There is been interval postsurgical changes to the right common femoral/external iliac artery region with previously seen thrombus in this region no longer visualized. There is however irregularity of the distal right external iliacand proximal right common femoral artery and mild narrowing in this region likely resenting postsurgical changes. Questionable flap in the proximal common femoral artery (series 3 image 153). Bones: Bone windows demonstrate no suspicious lytic or blastic lesions. The visible osseous structures are intact. Soft tissues: There is extensive soft tissue stranding edema and fluid throughout the right groin with multiple foci of subcutaneous gas along likely represent post surgical changes. Although there is focal fluid was prominent at series 3, image 153 in this region no rim- enhancing drainable fluid collections are appreciated at this time. Impression: 1.Interval postsurgical changes to the distal right external iliac/proximal right common femoral arteries with previously seen thrombus in this region no longer visualized. There is however irregularity of the artery in this region with mild narrowing which is favored to represent postsurgical changes. Questionable flap within the proximal common femoral artery as detailed above. 2.Extensive soft tissue stranding, edema and fluid along with subcutaneous gas in the right groin likelyrepresenting postsurgical changes. Although there is focal fluid in this region, no rim-enhancing drainable fluid collections are appreciated at this time. > Interpreting Provider: Alexx Lopez on 10/31/2022 11:[address] HEAD WO CONTRAST Result Date: 10/31/2022 EXAM: CT HEAD WO CONTRAST, DATE/TIME OF EXAM: 10/30/2022 8:22 PM, LOCATION: [facility] HISTORY: I63.511: Right middle cerebral artery stroke (CMS/HCC) ADDITIONAL CLINICAL INFORMATION: Ordering Provider Reason For Exam: Heparin supratherapeutic bleed follow up. EXAMINATION: CT scan of the head without intravenous contrast TECHNIQUE: CT of the head was performed without intravenouscontrast according to standard protocol. CT dose reduction technique was used, including Automated Exposure Control. COMPARISON: Head CT 10/28/2022. Brain MRI 10/24/2022. FINDINGS: See impression. IMPRESSION: Compared to prior head CT 10/28/2022: 1.Re-demonstrated postsurgical changes of decompressive right frontoparietotemporal craniectomy with multiple overlying scalp carla. Evolving heterogeneous subdural hematoma along the right frontotemporal convexity measuring up to 8 mm in maximal thickness (5/32), previously measuring up to 9 mm in thickness. 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 Increased conspicuity of a thin hyperdensity along the cortex within this region suggestive of evolving cortical laminar necrosis. 3.Re-demonstrated small hypodensity of the left inferior frontal gyrus/frontal operculum, consistent with an evolving pembtciu-bz-lwyybrq infarct. 4.No significant midline shift. Similar-appearing size and configuration of the ventricles without evidence of hydrocephalus. Basal cisterns are patent. 5.No other convincing change. Partially imaged left nasoenteric tube. > Interpreting Provider: Amanda Real MD, PhD on 10/31/2022 1:26 AM [facility] ANGIO TEAM Result Date: 10/30/2022 Fluoroscopy was used for this exam in the OR. Please see the Operative report. XR CHEST 1VW PORTABLE Result Date: 10/29/2022 PROCEDURE: XR CHEST 1VW PORTABLE, DATE/TIME OF EXAM: 10/29/2022 10:29 AM, LOCATION [facility] INDICATION: R09.02: Hypoxia ADDITIONAL CLINICAL INFORMATION: Ordering Provider Reason For Exam: evaluate for hypoxia COMPARISON: Chest x-ray from 10/27/2022 FINDINGS/IMPRESSION: Enteric tube is seen coursing over the diaphragm without visualization of the distal tip. There is no focal consolidation, pleural effusion, or pneumothorax. The cardiomediastinal silhouette is normal. Report dictated by Jacques Russell DO (resident services coordinator). Jacques Ornelas DO have personally reviewed and interpreted this examination/study. 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 Report dictated by Jacques Russell DO (resident services coordinator). Jacques Ornelas DO have personally reviewed and interpreted this examination/study. 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 FINDINGS/IMPRESSION: Enteric tube courses below the diaphragm with the distal tip superimposing the antropyloric region. Report dictated by Martell Shetty MD (resident services coordinator). I, Jacques Cole DO have personally reviewed and interpreted this examination/study. > Interpreting Provider: Jacques Cole DO on 10/28/2022 12:[address] HEAD WO CONTRAST Result Date: 10/28/2022 PROCEDURE: CT HEAD WO CONTRAST, DATE/TIME OF EXAM: 10/28/2022 5:28 AM, LOCATION [facility] INDICATION: Z91.89: At high risk for bleeding after thrombolytic therapy monitor for hemorrhagic bleed given heparin use in massive stroke EXAMINATION: Computed tomography (CT) of the head without contrast TECHNIQUE: CT of the head was performed without contrast according to standard protocol. CT dose reduction technique was used, including Automated Exposure Control. COMPARISON: CT head without contrast dated 10/27/2022 FINDINGS: Redemonstrated are postoperative changes of decompressiveright frontoparietotemporal craniectomy, with multiple overlying scalp carla. Redemonstrated slightly heterogeneous subdural hemorrhage along the right frontotemporal convexity measuring 9 mm in the maximal thickness (series 3 image 17), without significant change compared to prior study. Redemonstrated evolving right MCA infarct. There is moderate mass effect on the right lateral ventricle. There is again associated mild external herniation through the craniectomy site. Unchanged gyriform hyperdensity within the infarcted area which may represent laminar necrosis. Small volume of subarachnoid hemorrhage cannot be completely ruled out. No new acute intracranial hemorrhage. The ventricles are mildly dilated compared to 10/19/2022, otherwise unchanged compared to 10/27/2022. The basal cisterns are patent. No midline shift is seen. Unchanged small focus of hypoattenuation in the left frontal lobe (series 3 image 20) likely represents a small subacute infarct. Partially visualized nasogastric tube. The visualized portions of the orbits, paranasal sinuses, and mastoids appear normal. No acute calvarial fracture is identified. IMPRESSION: 1. Evolving right MCA subacute infarct status post decompressive craniectomy. Grossly unchanged right frontotemporal subdural hemorrhage. Grossly unchanged gyriform hyperdensity in the infarcted area may represent subarachnoid hemorrhage. No midline shift. Unchanged mildly dilated ventricles may represent mild hydrocephalus. 2. Unchanged small focus of hypoattenuation in the left frontal lobe likely represents additional subacute infarct. The report is dictated by Kayla Stevenson MD (resident services coordinator) 1 I, Lonnie Rae MD have personally reviewed and interpreted this examination/study. > Interpreting Provider: Lonnie Rae MD on 10/28/2022 9:15 AM XR CHEST 1VW PORTABLE Result Date: 10/27/2022 PROCEDURE: XR CHEST 1VW PORTABLE, DATE/TIME OF EXAM: 10/27/2022 10:19 AM, LOCATION [facility] INDICATION: D72.829: Leukocytosis, unspecified type ADDITIONAL CLINICAL INFORMATION: Ordering Provider Reason For Exam: any concern for pneumonia COMPARISON: Chest radiograph dated 10/25/2022. FINDINGS/IMPRESSION: Enteric tube courses below the diaphragm and out of the [id number]. RUQ surgical clips are present. No focal consolidation. No pleural effusion or pneumothorax. The cardiomediastinal silhouette is normal. Report dictated by Agnes Olmos DO (resident services coordinator). I, Pepe Gonzalez MD have personally reviewed and interpreted this examination/study. 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 COMPARISON: 10/26/2022. FINDINGS: Redemonstration of postoperative anisha nges of decompressive right cranioplasty. An evolving extra-axial hematoma is again noted in the craniotomy site. Small volume subarachnoid hemorrhage is is again seen in the right cerebral sulci. Again noted is herniation of the intracranial contents through the craniectomy defect. Again demonstrated is an evolving subacute infarct in the nearly entire right MCA distribution, grossly unchanged. There is persistent mass effect on the lateral ventricle. A small hypoattenuating focus is again noted in the left frontal lobe, which may represent a small subacute infarct. The ventricles are stable. The basal cisterns are patent. No midline shift. The scott-white matter differentiation is normal. The visualized portions of the orbits, paranasal sinuses, and mastoids appear normal. No acute calvarial fracture is identified. IMPRESSION: 1. Redemonstration of evolving right MCA subacute infarct, status post right decompressive craniectomy. The extra-axial hematoma underlying the craniectomy site and subarachnoid hemorrhage in the right cerebral sulci are grossly unchanged. Mass effect on the right lateral ventricle is unchanged. No significant midline shift. 2. Small focus of likely a subacute infarct in the left frontal lobe is unchanged. > Interpreting Provider: Lonnie Rae MD on 10/27/2022 12:10 PM XR CHEST 1VW PORTABLE Result Date: 10/26/2022 PROCEDURE: XR CHEST 1VW PORTABLE, DATE/TIME OF EXAM: 10/25/2022 9:41 AM, LOCATION [facility] INDICATION: I63.511: Right middle cerebral artery stroke ([facility]/HCC) ADDITIONAL CLINICAL INFORMATION: Ordering Provider Reason For Exam: Atlectasis/mucus plugging Comparison: Chest x-ray from10/23/2022, and CT chest, abdomen, pelvis from same day FINDINGS/IMPRESSION: Interval removal of theendotracheal tube. Enteric tube courses below the diaphragm and out of the [id number]. There is severe left rotation of the patient in this study. There is no focal consolidation, pleural effusion, or pneumothorax. The left upper lobe pulmonary nodule noted on chest CT from same day is not visualized on this plain film. The cardiomediastinal silhouette is normal. The visible bony thorax is intact. Report dictated by Royer Stovall MD (resident services coordinator). I, Alexx Lopez have personally reviewed and interpreted this examination/study. > Interpreting Provider: Alexx Lopez on 10/26/2022 2:[address] HEAD WO CONTRAST Result Date: 10/26/2022 PROCEDURE: CT HEAD WO CONTRAST, DATE/TIME OF EXAM: 10/26/2022 4:55 AM, LOCATION [facility] INDICATION: I63.511: Right middle cerebral artery stroke ([facility]/HCC) ADDITIONAL CLINICAL INFORMATION: Ordering Provider Reason For Exam: monitor for any bleeds, patient on heparin drip post large ischemic stroke EXAMINATION: Computed tomography (CT) of the head without contrast TECHNIQUE: CT of the head was performed without contrast according to standard protocol. COMPARISON: Comparison ismade with a CT head dated 10/25/2022. FINDINGS: Redemonstration of postoperative changes of right decompressive hemicraniectomy. Redemonstration of large volume confluent acute infarct in the right MCA territory involving the right frontal parietal temporal and insular regions and basal ganglia. Redemonstration of mild herniation of the right frontoparietal and temporal regions through the craniectomy defect. Redemonstration of a curvilinear extra-axial/extracranial fluid collection overlying the right cerebral convexity containing debris and blood products, measuring about 7 mm in thickness not significantly changed compared to prior study. Redemonstration of linear foci of hyperdensity along the evolving infarct most likely secondary to prominent vasculature. No new hyperdense foci within the evolving infarct. No evidence of transtentorial or tonsillar herniation. Station a mass effectfrom the large evolving right MCA territory infarct with effacement of sulci, and effacement of theright lateral ventricle. There is a large area of recent infarction seen in the right hemisphere inthe MCA territory with associated mass effect and some effacement of the right lateral ventricle grossly unchanged from prior. There are foci of hypoattenuation consistent with small evolving subacute to acute infarcts within the left frontal lobe periventricular white matter and left martínez radiata extending up to the left frontal subcortical regions also unchanged compared to prior study. No new intracranial hemorrhage or intra- or extra-axial fluid collections are identified. The left lateral ventricle, third and fourth ventricles are of normal size, shape, and morphology. The basal cisterns are patent. Leftward midline shift is approximately 2 mm as measured at the foramen of Monro, unchanged from yesterday. The visualized portions of the orbits, paranasal sinuses, and mastoids appearnormal. No acute calvarial fracture is identified. Partially visualized nasal tube IMPRESSION: 1. Redemonstration of evolving large right MCA territory acute to subacute infarct without definite evidence of hemorrhagic transformation. Unchanged minimal leftward midline shift of about 2 mm at the level of foramen of Monro and effacement of the left lateral ventricle. 2. Redemonstration of postsurgical changes from right-sided decompressive hemicraniectomy, unchanged compared to prior study. These results were discussed with stroke resident Dr Mendez by Dr. Miranda Bowen at8:05 AM on 10/26/2022 with read back confirmation and closed-loop communication. The report is dictated by Miranda Bowen MD (resident services coordinator) IOriana MD have personally reviewed and interpreted this examination/study. > Interpreting Provider: Oriana Suarez MD on 38:[address] CHEST ABDOMEN PELVIS W CONT Result Date: 10/25/2022 PROCEDURE: CT CHEST ABDOMEN PELVIS W CONT, DATE/TIME OF EXAM: 10/25/2022 12:56 PM, LOCATION [facility] INDICATION: I63.511: Right middle cerebral artery stroke [...] Neck and Axillae: Normal. Lungs: Subsegmental atelectasis ofthe posterior lungs. No pleural fluid or pneumothorax is present. There is a 3 mm nodule in the left upper lobe (image 47 series 5). Heart and Pericardium: The cardiac chambers are normal in size. Nopericardial fluid or thickening is present. Mediastinum and [...] groin. Subcutaneous gas in the lower left anteriorabdominal wall related to subcutaneous injections. Impression: 1.Occlusion [...] verification. > Dictated by Clarisa Cantrell MD (resident services coordinator). IAlexx have personally reviewed and interpreted this examination/study. 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 COMPARISON: Comparison is made with brain MR [address] head dated 10/23/2022 FINDINGS: There are postoperative ch anges of right hemicraniectomy. There is soft tissue thickening and skin carla overlying the operative defect. There is curvilinear fluid collection collection overlying the right cerebral convexity within the craniectomy defect containing some recent blood products and which measures approximately 22 mm in maximum thickness. There is a large area of recent infarction in the right cerebral hemisphere in the distribution in the distribution of the right middle cerebral artery. Mass effect is produced by this. There is a small amount of midline shift right to left of roughly 2 mm at the levelof the foramen of Monro. There is some compression of the right lateral ventricle. The left lateral ventricle, third, and fourth ventricles are normal in size. There are foci of decreased attenuationconsistent with small recent infarcts within the left frontal lobe and left martínez radiata. Bone window images demonstrate no signal suspicious lytic or blastic lesions. When today's study is compared to the parenchyma of 24 October [address] 23 October, there may be slightly less mass effectand midline shift on today's study and the fluid collection within the craniectomy defect overlyingthe lateral right cerebral hemisphere is slightly smaller. There has been interval removal of the drainage tube that was present within the craniectomy defect on previous brain CT and there is less ai r/gas within the operative defect relative to the previous brain CT. IMPRESSION: Redemonstrated postoperative changes consistent with right calvarial hemicraniectomy. Fluid collection overlying the lateral right cerebral hemisphere within the craniectomy defect containing some recent blood products. The overall size of this fluid collection is less than on previous study. In addition, there is less air/gas within this defect. Evolving large recent right cerebral hemisphere infarct with mass effect and approximately 2 mm of midline shift right to left. There appears to be slightly less mass effect and midline shift on today's study. Continued follow-up is recommended. Small recent cortical infarct in the lateral left frontal lobe as well as small recent infarc t in left martínez radiata which appears similar to previous study. Clinical correlation recommended.The report is dictated by Miranda Bowen MD (resident services coordinator) I, Joni Fabian MD have personally reviewed and interpreted this examination/study. > Interpreting Provider: Joni Fabian MD on 10/25/2022 2:[address] CARDIAC ANGIO STRUCT MORPH Result Date: 10/25/2022 PROCEDURE: CT CARDIAC ANGIO STRUCT MORPH, DATE/TIME OF EXAM: 10/23/2022 3:08 PM, LOCATION [facility] INDICATION: I63.411: Acute cerebrovascular accident (CVA) due to embolism of right middle cerebral artery (CMS/HCC) ADDITIONAL CLINICAL INFORMATION: Ordering Provider Reason For Exam: L atrial valve vegetations Technologist Note: Additional: COMPARISON: None. Procedure: CT structure and morphology with intravenous contrast material, including 3D image post-processing Acquisitionmode: Retrospective ECG gated. Contrast type and volume:Isovue .100 mL. Complications: None.. Imagequality: Good signal noise. There is motion artifact Heart rate: 99 bpm. Coronaries: The coronary arteries are not completely visualized due to motion artifact given the increase heart rate. Within the limitations, coronary arteries are normal in course and morphology and patent without calcification or plaque. Other cardiac findings: Left Atrium: The left atrium is normal size with no left atrial appendage filling defects. Left Ventricle: The ventricular cavity [...] the available limited view of the abdomen. Impression: 1. 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 2. Patent coronary vessels within the limitation of the motion artifact given the elevated heart during this exam > Interpreting Provider: Pepe Gonzalez MD on 10/25/2022 12:03 AM XR ABDOMEN KUB PORTABLE Result Date: 10/24/2022 PROCEDURE: XR ABDOMEN KUB PORTABLE, DATE/TIME OF EXAM: 10/24/2022 2:04 PM, LOCATION [facility] INDICATION: R47.1: Dysarthria ADDITIONAL CLINICAL INFORMATION: Ordering Provider ReasonFor Exam: ngt placement COMPARISON: Portable KUB dated 10/23/2022 FINDINGS/IMPRESSION: The enteric tube courses below the diaphragm with tip superimposing the gastric pyloric region. Drafted by Agnes Olmos DO (resident services coordinator). I, Vanessa Kumar MD have personally reviewed and interpreted this examination/study. > Interpreting Provider: Vanessa Kumar MD on 10/24/2022 2:17 PM MRI BRAIN WWO CONTRAST Result Date: 10/24/2022 PROCEDURE: MRI BRAIN WWO CONTRAST, DATE/TIME OF EXAM: 10/24/2022 10:56 AM, LOCATION [facility] INDICATION: I63.411: Acute cerebrovascular accident (CVA) due to embolism of right middle cerebral artery (CMS/HCC) ADDITIONAL CLINICAL INFORMATION: Ordering Provider Reason For Exam: Stroke workup Technologist Note: Does the patient have a defibrillator, pacemaker, aneurysm clips or implanted mechanical devices?->No Does the patient have metal implants or stents?->No Additional: None. EXAMINATION: Magnetic resonance imaging (MRI) of the brain without and with contrast CONTRAST: GADOBUTROL 1 MMOL/ML IV SSM SO:9.5 mL TECHNIQUE: MRI of the brain was performed prior to and following the uneventful administration of 9.5 mL intravenous GADAVIST contrast according to standard protocol. COMPARISON: CT of the head from 10/23/2022. FINDINGS: Redemonstration of postoperative changes of decompressive right hemicraniectomy with expected interval evolution of the previously seen post surgical changes along the craniectomy site. Redemonstration of extra-axial collection along the craniectomy site containing extra-axial blood products and fluid, measuring approximately 2.4 cm in thickness, (series 9, image 13), previously measured approximately 2.5 cm, grossly unchanged from prior. Interval resolution/redistribution of the previously seen foci of pneumocephalus compared to the prior CT. Interval removal of the previously seen right intracranial pressure monitor. Redemonstration of extensive cytotoxic edema in the right frontotemporoparietal regions, the right insula, and the right basal ganglia, extending along the martínez radiata and the marginally along the lateral aspect of the right centrum semiovale compatible with evolving acute right MCA territory infarction. There is persistent local mass effect on the right cerebral hemisphere with effacement of the overlayingsulci, mild external herniation of the infarcted brain through the craniectomy defect, effacement of the right lateral ventricle, and approximately 3-4 mm ojxoo-wb-zqro midline shift at the level of the foramen of Monro, (series 13, image 18),, previously measured approximately 3 mm, (series 6, image 35), when remeasured, grossly similar to the prior. Extensive susceptibility artifacts along the craniectomy site compatible with expected postsurgical changes. There are additional scattered foci of restricted diffusion in the left frontoparietal region, extending along the subcortical white matter of the lateral left frontal lobe, the right martínez radiata, and the centrum semiovale, compatible with a small evolving acute to subacute infarcts. Otherwise, no new intracranial hemorrhage is identified. The ventricular caliber appears grossly stable compared to the prior. For reference, the diameter of the left ventricular trigone measures approximately 1.2 cm, (series 4, image 33), previously measured approximately 1.3 cm, (series 4, image 19). The basal cisterns are mildly effaced. The re maining ventricles are of normal size, shape, and morphology. Diffuse leptomeningeal enhancement along the right frontotemporoparietal infarcted area compatible with expected reactive changes. No enhancing lesions are otherwise identified. The corpus callosum and sella appear normal. The posterior fossa, brainstem, and craniocervical junction appear grossly stable. The visualized portions of the orbits appear grossly unremarkable. There is mild paranasal sinus disease. There is suspected minimal opacification in the right mastoid air cells. The remaining mastoid air cells appear grossly clear. Normal flow voids are demonstrated in the carotid arteries and basilar artery. The calvarium and visualized cervical spine otherwise appear normal. IMPRESSION: 1.Redemonstration of postoperative changes of a right hemicraniectomy with expected postsurgical changes as outlined above. 2.Redemonstration of evolving large right MCA territory infarction with extensive cytotoxic edema and mild external herniation of the brain through the craniectomydefect. Persistent local mass effect on the right cerebral hemisphere, effacement of the right lateral ventricle, and approximately 3-4 mm vovit-lb-ufhh midline shift, grossly similar to the prior. 3.Mild dilation of the left lateral ventricle may represent subtle left ventricular entrapment, overall grossly similar to prior. 4.Additional multiple foci of abnormal diffusion within the left frontotemporal lobes with associated T2 FLAIR hyperintensity representing additional small acute to subacute infarcts, likely of cardioembolic etiology. Findings communicated to Dr. Mohr by Dr. Major at 1138 hours on 10/24/2022 with readback comprehension and verification. Report dictated by Tim Major MD (resident services coordinator). IJasper MD have personally reviewed and interpreted this examination/study. > Interpreting Provider: Jasper Sifuentes MD on 10/24/2022 1:59 PM XR CHEST 1VW PORTABLE Result Date: 10/24/2022 PROCEDURE: XR CHEST 1VW PORTABLE, DATE/TIME OF EXAM: 10/23/2022 8:24 AM, LOCATION [facility] INDICATION: I63.511: Right middle cerebral artery stroke (CMS/HCC) ADDITIONAL CLINICAL INFORMATION: Ordering Provider Reason For Exam: OETT position COMPARISON: Chest radiograph dated 10/21/2022 FINDINGS/IMPRESSION: The enteric tube courses below the diaphragm out of the inferior bodyq-xv-yblk. Endotracheal tube terminates in the midthoracic trachea. There is no focal consolidation. No pleural effusion or pneumothorax. The cardiomediastinal silhouette is normal. No acute osseous abnormality. Report dictated by Agnes Olmos DO (resident services coordinator). Vanessa Ornelas MD have personally reviewed and interpreted this examination/study. > Interpreting Provider: Vanessa Kumar MD on 10/24/2022 1:03 PM ECHO SARAH Result Date: 10/24/2022 ??? Aortic??Valve: Valve structure is normal. There is a 6 x 7 mm independently mobile mass on the left coronary cusp. Differential includes vegetation (non- bacterial thrombotic endocarditis, infective endocarditis) vs less likely fibroelastoma. ??? Left??Atrium: No right to left intracardiac or extracardiac shunt present viewable with agitated saline, color Doppler and Valsalva maneuver. Normal sized appendage. Normal appendage flow velocity. No thrombus present in the left atrial appendage (MADELEINE). ??? Left??Ventricle: Left ventricle size is normal. Hyperdynamic systolic function with a visually estimated EF of 75 - 80%. ??? No hemodynamically significant valvular abnormality. XR ABDOMEN KUB PORTABLE Result Date: 10/24/2022 PROCEDURE: XR ABDOMEN KUB PORTABLE, DATE/TIME OF EXAM: 10/23/2022 1:53 PM, LOCATION [facility] INDICATION: R47.1: Dysarthria ADDITIONAL CLINICAL INFORMATION: Ordering Provider ReasonFor Exam: NGT placement COMPARISON: Portable KUB dated 10/20/2022 FINDINGS/IMPRESSION: The enteric tube courses below the diaphragm with tip superimposing the stomach. Drafted by Agnes Olmos DO (resident services coordinator). Vanessa Ornelas MD have personally reviewed and interpreted this examination/study. 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 EXAMINATION: Computed tomography (CT) of the head without contrast TECHNIQUE: CT of the head was performed without contrast according to standard protocol. CT dose reduction technique was used, including Automated Exposure Control. COMPARISON: Comparison is made with a CT head dated 10/22/2022. FINDINGS: Redemonstration of postoperative changes consistent of a right hemicraniectomy with underlying extra-axial blood products along the lateral cerebral convexity and small foci of pneumocephalus, slightly decreased or redistributed compared to prior. Unchanged appearance of a right intracranial pressure monitor. Extensive cytotoxic edema and mass effect in the right MCA territory with associated diffusesulci effacement and right lateral ventricle effacement grossly unchanged from prior. There is a right to left midline shift measuring up to 2 mm, stable to mildly improved from prior. No new intracranial hemorrhage or intra- or extra-axial fluid collections are identified. The ventricular morphology is stable compared to prior exams. The basal cisterns are mildly effaced. The visualized portionsof the orbits appear grossly unremarkable. Minimal opacification in the left ethmoid air cells. Theimaged mastoid air cells appear grossly clear. A presumed nasogastric tube present. Mild dilation of the left lateral ventricle likely representing mild left ventricular entrapment. Hyperdensity along the right sylvian fissure compatible with right MCA thrombosis. No acute calvarial fracture is identified. There is soft tissue edema overlying the right hemicraniectomy site and right zygomatic region are essentially unchanged from prior. IMPRESSION: 1.Redemonstration of postsurgical changes of decompressive craniectomy and evolving right middle cerebral artery territory infarct. 2.No hemorrhagic transformation. 3.Extensive cytotoxic edema and mass effect with approximately 2 mm midline shift, [place] similar or slightly improved from prior. 4.Stable right intracranial pressure monitor. The report is dictated by Miranda Bowen MD(resident services coordinator) I, Jasper Sifuentes MD have personally reviewed and interpreted this examination/study. 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 COMPARISON: No prior study is available for comparison at the time of this dictation. FINDINGS: Redemonstration of post surgical changes of a right hemicraniectomy, and a right MCA infarct. Stable appearance of right intracran ial pressure monitor. There are extra-axial blood products along the right lateral cerebral convexity at the craniectomy site with associated pneumocephalus consistent with postsurgical changes. There is extensive edema and mass effect in the right MCA territory. There is sulcal effacement and effac ement of the right lateral ventricle. There is right to left midline shift measuring up to 4 mm, stable from prior There is no evidence of new acute intracranial hemorrhage. The ventricular morphology is stable compared to prior examination. The basilar cisterns are patent. The orbits appear normal. The paranasal sinuses are clear. The mastoid air cells are clear. IMPRESSION: 1.Redemonstration of postsurgical changes of decompressive right hemicraniectomy for evolving right middle cerebral artery territory infarct. There is significant edema and mass effect with approximately 4 mm of midline shift, unchanged from prior. No evidence of new acute intracranial hemorrhage. > Interpreting Provider: Lonnie Rae MD on 10/22/2022 3:[address] HEAD WO CONTRAST Result Date: 10/22/2022 PROCEDURE: CT HEAD WO CONTRAST DATE/TIME OF EXAM: 10/22/2022 2:33 PM CLINICAL INFORMATION: None relevant/not provided if blank. 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 FINDINGS: Redemonstration of post surgical changes of a right hemicraniectomy, and a right MCA infarct. Stable appearance of right intracranial pressuremonitor. There are extra-axial blood products along the right lateral cerebral convexity at the craniectomy site with associated pneumocephalus consistent with postsurgical changes. There is extensive edema and mass effect in the right MCA territory. There is sulcal effacement and effacement of theright lateral ventricle. There is right to left midline shift measuring up to 4 mm, stable from prior There is no evidence of new acute intracranial hemorrhage. The ventricular morphology is stable compared to prior examination. The basilar cisterns are patent. The orbits appear normal. The paranasal sinuses are clear. The mastoid air cells are clear. IMPRESSION: 1.Stable appearance of postsurgical changes of decompressive right hemicraniectomy for evolving right middle cerebral artery territory infarct. There is significant edema and mass effect with approximately 4 mm of midline shift, unchanged from prior. No evidence of new acute intracranial hemorrhage. Report dictated by Lorenzo Horta MD (nursing resident). Lonnie Ornelas MD have personally reviewed and interpreted this examination/study. > Interpreting Provider: Lonnie Rae MD on 10/22/2022 3:10 PM XR CHEST 1VW PORTABLE Result Date: 10/21/2022 PROCEDURE: XR CHEST 1VW PORTABLE, DATE/TIME OF EXAM: 10/21/2022 8:53 AM, LOCATION [facility] INDICATION: R53.1: Weakness ADDITIONAL CLINICAL INFORMATION: Ordering Provider Reason ForExam: post intubation COMPARISON: None. Chest radiograph FINDINGS/IMPRESSION: Lines, tubes, hardware: * An endotracheal tube seen with the tip appropriately positioned in the mid thoracic trachea. * Enteric tube is seen with its tip below the diaphragm out of the field of view. Minimal right basilar airspace opacification. Otherwise, no confluent consolidation. No pneumothorax is visible. The cardiomediastinal silhouette is normal. The visible bony thorax is intact. Report dictated by Christopher Tobin MD, MD (resident services coordinator). HEATHER Ornelas MD have personally reviewed and interpreted this examination/study. > Interpreting Provider: HEATHER FREGOSO MD on 10/21/2022 5:59 PM ECHO TRANSTHORACIC W BUBBLE STUDY Result Date: 10/20/2022 ??? Left??Ventricle: Left ventricle size is normal. Normal wall thickness. Normal systolic functionwith a visually estimated EF of 60 - 65%. Normal wall motion. Normal diastolic function. ??? NormalRV size and systolic function. ??? No significant valvular abnormalities. ??? Bubble study negativefor shunt. ??? Normal IVC and visualized portion of aorta. CT HEAD WO CONTRAST Result Date: 10/20/2022 DATE/TIME OF EXAM: 10/20/2022 9:13 PM, LOCATION [facility] INDICATION: I63.411: Acute cerebrovascular accident (CVA) due to embolism of right middle cerebral artery (CMS/HCC) ADDITIONAL CLINICAL INFORMATION: Ordering Provider Reason For Exam: [facility] COMPARISON: Multiple prior studies, most recently CT head dated 10/20/2022 at 8:19 AM TECHNIQUE: CT of the head was performed withoutcontrast according to standard protocol. FINDINGS: There has been interval postsurgical changes of right hemicraniectomy for management of cerebral edema following right MCA territory infarct. A right-sided subdural drain is in place. There is redemonstration of evolving right middle cerebral artery territory infarct, with associated edema and mass effect with sulcal effacement, effacement of theright lateral ventricle, and abboo-yf-xxyb midline shift measuring up to 4 mm and stable from prior(series 5, image 36). A catheter is seen terminating within the region of the right parietal lobe, likely representing an ICP monitor. No evidence of acute intracranial hemorrhage. The ventricular morphology is stable from prior, without evidence of obstructive hydrocephalus. The basilar cisterns are patent. The scott-white matter differentiation otherwise appears normal. The orbits appear normal.The paranasal sinuses are clear. The mastoid air cells are clear. No soft tissue abnormality is identified. IMPRESSION: Interval postsurgical changes of decompressive right hemicraniectomy with ICP monitor and subdural drain in place. 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 > Dictated by Bassam Jovel M.D. (nursing resident) I, Gonzalez Velasco MD have personally reviewed and interpreted this examination/study. > Interpreting Provider: Gonzalez Velasco MD on 10/20/2022 11:06 PM XR ABDOMEN KUB PORTABLE Result Date: 10/20/2022 PROCEDURE: XR ABDOMEN KUB PORTABLE DATE/TIME OF EXAM: 10/20/2022 12:44 PM Indication: I63.511: Rightmiddle cerebral artery stroke (CMS/HCC) Evaluation of NG tube placement COMPARISON: None. FINDINGS/IMPRESSION: An enteric tube is seen coursing into the stomach with its tip and side-port in the gastric body. Report dictated by Royer Stovall MD (resident services coordinator). I, Amanda Prieto MD have personally reviewed and interpreted this examination/study. > Interpreting Provider: Amanda Prieto MD on 10/20/2022 3:[address] HEAD NON CONTRAST Result Date: 10/20/2022 PROCEDURE: CT HEAD WO CONTRAST DATE/TIME OF EXAM: 10/20/2022 8:19 AM CLINICAL INFORMATION: None relevant/not provided if blank. Indication: R44.9: Left-sided sensory deficit present Additional History: Follow-up of acute stroke COMPARISON: Noncontrast brain CT 19 October 2022. TECHNIQUE: NoncontrastCT brain was performed utilizing standard protocol. CT dose reduction technique was used, includingAutomated Exposure Control. FINDINGS: There is no definite acute intracranial hemorrhage. There is a large confluent area of decreased attenuation within the right cerebral hemisphere consistent witha large acute infarct in the distribution of the right middle cerebral artery. Mass effect is produced approximately 4 mm of midline shift right to left. There is some mild effacement of the right side of the suprasellar cistern. There is increased attenuation within the region of the right middle cerebral artery likely representing thrombus. There is some effacement of the right lateral and third ventricles due to the mass effect related to the acute infarct. The left lateral and fourth ventricles are within normal limits in size. No definite areas of abnormal attenuation within the left cerebral hemisphere. Bone window images are negative for depressed skull fracture. When comparison is made to the previous study of 19 October 2022 there has been progression of the acute infarct in the right middle cerebral artery distribution which is larger in size and with new mass effect and midline shift. IMPRESSION: Findings consistent with a large acute area of infarction in the right cerebral hemisphere in the distribution of the right middle cerebral artery with mass effect and approximately 4 mm of midline shift right to left. There is no definite hemorrhagic transformation. There is hyperdensity of the right middle cerebral artery likely representing thrombus. Clinical correlation and continued close interval follow-up are recommended. Results discussed with the stroke team physician, Dr. Stephanie Hester, on 20 October 2022 approximately 1225 hours. > Interpreting Provider: Joni Fabian MD on 10/20/2022 12:[address] ANGIO BRAIN NECK STROKE Result Date: 10/19/2022 PROCEDURE: CT ANGIO BRAIN NECK STROKE, DATE/TIME OF EXAM: 10/19/2022 8:16 AM, LOCATION [facility] INDICATION: Code Stroke ADDITIONAL CLINICAL INFORMATION: Ordering Provider Reason For Exam: Technologist Note: Additional: EXAMINATION: 1. Computed tomographic (CT) angiography of the head with contrast 2. CT angiography of the neck with contrast TECHNIQUE: CT angiography of the headand neck was obtained after the uneventful administration [...] a concurrent noncontrasted head CT for detailed intracranialfindings including findings suggesting an acute right MCA [...] arteries are patent. The basilar artery is patentpatent. 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 IMPRESSION: 1. [...] Lonnie Rae MD on 10/19/2022 8:[address] BRAIN - Stroke Result Date: 10/19/2022 PROCEDURE: CT BRAIN STROKE, DATE/TIME OF EXAM: 10/19/2022 8:04 AM, LOCATION [facility] INDICATION: Code Stroke ADDITIONAL CLINICAL INFORMATION: Ordering [...] of scott-white matter differentiation in the right frontotemporallobes and the right insula, concerning for an acute infarct. There is suggestion of a hyperdense right MCA likely represent acute thrombus (series 5 image 25). No acute intracranial hemorrhage or intra- or extra-axial fluid collections are identified. The ventricles are of normal size, shape, and morphology. The basal cisterns are patent. No mass effect or midline shift is seen. The scott-white mat ter differentiation is normal. The visualized portions of [...] Lonnie Rae MD on 10/19/2022 8:15 AM Right middle cerebral artery stroke (CMS/HCC) (POA: Unknown) Acute cerebrovascular accident (CVA) due to embolism of right middle cerebral artery (CMS/HCC) (POA: Yes) Nihss score 9 (POA: Yes) Received intravenous tissue plasminogen activator (tPA) in emergency department (POA: Yes) GERD (gastroesophageal reflux disease) (POA: Yes) Hemianopsia (POA: Yes) Weakness (POA: Yes) Left-sided sensory deficit present (POA: Yes) Gaze palsy (POA: Yes) Migraine (POA: Unknown) Hypertension (POA: Unknown) Presence of externally removable percutaneous endoscopic gastrostomy (PEG) tube (CMS/HCC) (POA: Unknown) Anemia (POA: Yes) Hepatocellular injury (POA: No) Assessment Consuelo Darby??is a 41 year old??female who??presented on 10/19 with Right MCA syndrome ??s/p TNK. CTA 1 M1 occlusion. S/P mechanical thrombectomy with R M1 recanalization and TICI2b. CT 10/20/22 with edema and mild shift. S/P decompressive right hemicraniectomy. Echo showed a??mobile??aortic valve vegetation.??MRI brain with scattered cortical R hemisphere infarcts with petechiae. ?? Stroke Type:??Ischemic Stroke Mechanism:??Cardioembolic Plan TIA/Stroke Workup; active -R M1 ischemic stroke; active - s/p TICI2b revascularization, TNK - s/p decompressive hemicrani on 10/20 for malignant MCA - HbA1C: 6.0, LDL: 91, Cardiac Enzymes; wnl - atorvastatin 80 mg -??Warfarin bridge with Lovenox , hold warfarin d/t plan for LP- last lovenox last night ?? Core Measures TNK??administration: yes Anti-thrombotic: holding while on AC Statin:??atorvastatin 80mg DVT prophylaxis:??on lovenox 1mg/kg (but on hold today for IR intervention for LP) PEG tube ?? Migraine - On verapamil 40 TID; no concerns for headaches currently ?? GENESIS - not currently on home amitriptyline ?? 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 - Cardiology will repeat SARAH OP setup after completing abx. ?? Fever - Blood cx still negative, - d-dimer high,??US extremities b/l UE??shows superficial thrombus in cephalic veins - ID on board. - CT abd shows concerns for abscess under peg and hematoma over femoral vessels underwent procedureon 11/10 - Cardiology, IR, vascular surgery, acute care surgery aware - ID recs continue Vanc+Doxycycline and add meropenem, stopped cefepime and flagyl 11/12 - Advised to stop vancomycin due to concerns for drug-induced fever (11/12; no fever since stopped) - ID recs LP, INR 1.3 today, called neuroradiology for LP and planned for tomorrow (not on any anticoagulation currently; IR confirmed no need for NPO prior) ?? Leucopenia resolved - Hematology consulted - ID aware- no recs from them - Pt on prolonged antibiotic course currently Eosinophilia - IM did not have any recs and deemed 2/2 beta lactams ?? 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 HTN - home metop 25 mg bid ?? Transamnitis -??stable transamnitis - Medicine consulted; deemed likely 2/2 cefepime induced - RUQ U/S normal - EBV and CMV DNA PCR pending - HFP qd ?? Blood Pressure Goals: SBP <160, map >70 ?? Vit D deficiency - Vit D 2,000 U daily ?? Urinary Retention - Urology following and will have outpatient trial in 1 month ?? Skin Rash: Consulted dermatology, rash improved Triamcinolone ointment ? Individual Modifiable Risk Factors Hypertension:??no Hyperlipidemia:??no Diabetes:??no Atrial Fibrillation:??no Tobacco:??no ?? Family updated this morning. ?? Case findings discussed with Dr. Antunez, Stroke Attending. Karishma Ojeda MD Neurology Resident * Liam Parks MD - 11/14/2022 8:55 AM CDT [facility] Infectious Diseases Progress Note Date of Admission: 10/19/2022 7:53 AM Length of Stay: Room: [facility]/ Attending: Good Antunez MD Subjective Since last seen by us, she remains afebrile, hemodynamically stable, on room air. No acute events overnight, no acute distress, no new complaints. Unchanged mental status. Review of Systems Unable to perform ROS: Mental status change Antimicrobial History Current Antibiotics Meropenem 11/12 - present Doxycycline 11/05 - present Prior Antibiotics At U Cefazolin 10/20 Vancomycin 10/20; 10/25 - Ceftriaxone 10/25 - 11/05 Cefepime 11/05 - 11/11 Metronidazole 11/05; 11/10 - 11/12 Inpatient Medications ??? 0.9% NaCl 10-40 mL Intracatheter q8h ??? 0.9% NaCl 3 mL Intracatheter q8h ??? acetaminophen 500 mg Enteral Tube q6h ??? doxycycline monohydrate 100 mg Enteral Tube q12h ??? guaiFENesin 10 mL Enteral Tube q12h ??? loratadine 10 mg Enteral Tube QDAY ??? meropenem 2,000 mg Intravenous q8h ??? metoprolol tartrate IR 25 mg Enteral Tube q12h ??? pantoprazole EC 40 mg Oral QDAY ??? perflutren lipid microsphere 0.5 mL Intravenous intra-Procedure multiple ??? polyethylene glycol 3350 17 g Enteral Tube BID ??? senna-docusate 2 tablet Enteral Tube QDAY ??? tamsulosin 0.4 mg Enteral Tube QDAY ??? triamcinolone acetonide Topical BID ??? verapamil 40 mg Enteral Tube q8h ??? Vitamin D3 (cholecalciferol) 2,000 Units Enteral Tube QDAY Objective Vitals BP 105/58 Pulse 79 Temp 97.9 ??F (36.6 ??C) (Axillary) Resp 16 Ht 1.626 m (5' 4 ) Wt 95.3kg (210 lb) SpO2 96% Temp (24hrs), Av.6 ??F (36.4 ??C), Min:97.2 ??F (36.2 ??C), Max:97.9 ??F (36.6 ??C) Physical Exam Physical Exam Vitals and nursing note reviewed. Constitutional: General: She is sleeping. She is not in acute distress. Appearance: She is obese. She is not ill-appearing, toxic-appearing or diaphoretic. HENT: Head: Comments: Craniectomy surgical wound clean, no erythema or discharge Cardiovascular: Rate and Rhythm: Normal rate and regular rhythm. Pulses: Normal pulses. Heart sounds: Normal heart sounds. No murmur heard. No friction rub. No gallop. Pulmonary: Effort: No respiratory distress. Breath sounds: No wheezing, rhonchi or rales. Abdominal: General: Abdomen is flat. Bowel sounds are normal. There is no distension. Palpations: Abdomen is soft. Tenderness: There is no abdominal tenderness. Comments: Right groin surgical wound with no surrounding erythema or discharge but deep induration on palpation PEG tube present Genitourinary: Comments: Puentes present Musculoskeletal: Cervical back: Normal range of motion. No rigidity. Right lower leg: No edema. Left lower leg: No edema. Lymphadenopathy: Cervical: No cervical adenopathy. Lines: left forearm PIV, left antecubital PIV Lab Review CBC: Recent Labs Component Name 11/14/2223811/13/2220911/12/2232 10/23/22 0129 10/22/22 0153 WBC 4.7 2.7* 4.8 - - RBC 3.47* 3.36* 3.27* - - HGB 9.9* 9.8* 9.4* - - HCT 32.8* 30.8* 30.2* - - MCV 94.5 91.7 92.4 - - PLT - - - - 199 - = values in this interval not displayed. BMP: Recent Labs Component Name 11/14/2223811/13/220 11/12/22 0532 NA 140 138 136 CL 104 107 105 CO2 25 23 21* BUN 11 11 13 CREATININE 0.51* 0.54* 0.59 ALB 2.4* 2.4* 2.5* PROT 6.5 6.5 6.5 estimated creatinine clearance is 164.1 mL/min (A) (by C-G formula based on SCr of 0.51 mg/dL (L)). LFTs: Recent Labs Component Name 11/14/2223811/13/220 11/12/22 0532 06/15/22 0757 12/09/18 0812 07/25/186 03/01/16 0817 02/18/16 1209 07/07/13 2319 ALKPHOS 78 77 75 - 56 52 111 - 55 ALT 278* 286* 266* - 17 12* 21 - 15 AST 158* 195* 220* - 18 20 25 - 10 ALBUMIN - - - - 4.5 4.3 2.5* - 3.8 LIPASE - - - - - - - - 157 - = values in this interval not displayed. Coagulation: Recent Labs Component Name 11/14/22 0239 11/13/22 0210 11/12/22 0532 PT 15.9* 17.7* 22.1* INR 1.3 1.5 2.0 PTT 45.9* 47.9* 102.7* Microbiology, Imaging and other diagnostic tests MICROBIOLOGY: Blood culture: 10/23 No growth 10/24 No growth 10/25 No growth 10/27 fungal blood culture in process 10/27 AFB blood culture in process 11/05 No growth 11/12 No growth Urine culture: 10/27 No growth (<100 CFU/mL) 11/05 No growth (<100 CFU/mL) Other serologies: 10/23 MRSA DNA by PCR not detected?? 10/25 HIV Antigen/Antibody 1 & 2 non-reactive 10/25 Hepatitis C Antibody non-reactive 10/27 Bartonella henselae Antibody IgM negative 10/27 Bartonella henselae Antibody IgG negative 10/27 Bartonella Species by PCR not detected 10/27 Coxiella burnetii Antibody IgG negative 10/27 Coxiella burnetii Antibody IgM negative 10/27 C Pneumoniae Antibody IgG Titer negative 10/27 Chlamydia Pneumoniae Antibody IgM Titer negative 10/27 Chlamydia trachomatis Antibody IgM Titer negative 10/27 Chlamydia psittaci Antibody IgM Titer negative 10/27 Chlamydia trachomatis Antibody IgG Titer negative 10/27 Chlamydia psittaci Antibody IgG Titer negative 10/27 Mycoplasma Antibody IgG negative 10/27 Mycoplasma Antibody IgM negative 11/02 HIV Antigen/Antibody 1 & 2 non-reactive 11/02 Hepatitis B Virus Surface Antibody reactive 11/02 Hepatitis B Virus Surface Antigen non-reactive 11/02 Hepatitis B Core Virus Antibody IgM non-reactive 11/02 Hepatitis C Antibody non-reactive 11/05 respiratory pathogen panel PCR not detected HISTOPATHOLOGY: 10/30/2022 Thrombus, right femoral, thrombectomy (A): - Thrombus IMAGING & PROCEDURES: I have independently reviewed all pertinent imaging data. Reports available in EMR. Assessment and Recommendations Fever - resolved T max of 102.9 F Patient currently admitted for large right MCA ischemic stroke As part of work up she underwent SARAH that showed aortic valve vegetation ID had been consulted for possible infective endocarditis and recommended work up for culture negative endocarditis which has been negative so far, plan was empiric ceftriaxone and doxycycline through 11/22/2022 Recently she has developed intermittent fever and antibiotics broadened to meropenem and vancomycin Multifactorial, infectious considerations include pneumonia but no there is no cough or sputum production, no oxygen requirements, chest x-ray unremarkable; urinary tract but she does not endorse dysuria, Puentes present, UA with no significant pyuria or bacteriuria, urine culture negative; line related infection, only peripheral lines, no evidence of thrombophlebitis, blood cultures have been negative; thrombosis, she does have arterial thrombosis s/p thrombectomy, would monitor for evidence of DVT At this time most concerning for -FINE HAIRER infection, MRI cannot rule out cerebritis/meningitis, needs LP -Post surgical infection, craniectomy -Post surgical infection, PEG, fluid collection seen on CT abdomen -Post surgical infection, right groin wound thrombectomy and angioplasty, fluid collection and overlying skin changes seen on CT abdomen and pelvis -Concern for drug related fever Aortic valve vegetation Possible infective endocarditis Concern for culture negative infective endocarditis SARAH done as part of ischemic stroke work up Patient was admitted as a code stroke, noted to have right MCA stroke, s/p TNK and revascularization by interventional neurology; course complicated by cerebral edema s/p right hemicraniectomy by neurosurgery?? ID consulted for IE rule out in the setting of vegetation Etiologies at this time include NBTE versus IE Extensive infectious and non-infectious work up unrevealing so far Plan to treat empirically for culture negative IE Right MCA stroke Malignant right MCA infarction s/p right decompressive hemicraniectomy Neurology and neurosurgery following No concern for craniectomy surgical site infection Right common femoral artery thrombosis s/p thrombectomy Right common femoral arteriotomy s/p bovine pericardial patch angioplasty Concern for surgical site infection in right inguinal region Vascular surgery following CT abdomen, pelvis showed progressive soft tissue stranding with gas in the right inguinal region with an inflammatory mass encasing the right femoral vessels with mild narrowing of the femoral artery and moderate narrowing of the femoral vein. Vascular surgery with low concern for infection and recommended monitoring and conservative management Dysphagia s/p PEG tube placement Fluid collection around tube insertion site Low concern for infection as per general surgery and GI s/p EGD and percutaneous gastropexy; findings concerning for erosive gastritis Renal Function estimated creatinine clearance is 164.1 mL/min (A) (by C-G formula based on SCr of 0.51 mg/dL (L)). Plan/Recommendations Fever now resolved, will keep her on meropenem and doxycycline until previously recommended EOT on 11/22/2022 Continue meropenem 2 g IV every 8 hours Continue doxycyline 100 mg oral every 12 hours Follow repeat blood cultures LP as per neurology, send CSF analysis for: cell count with diff, protein, glucose, Gram stain, bacterial culture, AFB smear and culture, fungal smear and culture, meningitis/encephalitis panel, please call if abnormal Follow general surgery, vascular surgery, neurosurgery recommendations and surgical plan Follow dermatology recommendations for rash If fever recurs, please obtain repeat imaging with CT chest, abdomen, pelvis with contrast if not contraindicated and repeat MRI brain wwo contrast if not contraindicated and call back ID if results concerning for infectious process Check CBC with auto diff and CMP weekly while on IV antibiotics Infectious Disease will sign off of this patient. Please page us for any questions or concerns. If any additional cultures or infectious disease work up return positive, page us for additional recommendations. Thank you for allowing us to participate in the care of this patient. Patient seen, examined, and case/plan were discussed with my attending physician, Dr. Pastrana. Case discussed with primary team. Liam Parks MD ([id number]) Infectious Diseases Fellow [facility] Pager: [phone] ID Clinic Associated attestation - Gilberto Pastrana MD - 11/14/2022 10:00 PM CDT I have reviewed the record and independently examined the patient. I agree with the findings and plan of care as documented by the pet house sitter. 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 10/19- revascularization done by IR (percutaneous thrombectomy via R-femoral artery approach) 10/20- R-decompressive hemicraniectomy for refractory intracranial HTN and subagleal drain insertion 10/23- SARAH showed aortic valve vegetation. Seen by ID on 10/24 and started on treatment for possible culture negative IE. 10/30- Found to have R-femoral common femoral artery occlusion/thrombosis. Had RLE angiogram, R-iliofemoral thrombectomy and R-common femoral patch angioplasty. Assessment and Recommendations 1. Aortic valve vegetation in a patient with CVA and fever. Concerning for culture-negative endocarditis. Initially started on ceftriaxone and doxy with a plan to continue for 4 weeks (EOT 11/22). Broadening antibiotics required because of persistent fever and infections at other sites. Now on froy and doxy. - Continue froy and doxy for 7 more days 2. Persistent fever. Craniectomy site infection (?meningitis, cerebritis), R- groin vascular access site infection, PEG tube insertion site infection/abscess and drug-related fever (recent eosinophilia) considered as possible causes. Evaluated by vascular team for R-groin wound/hematoma. MRI brain obtained on 11/09 and important to get CSF for work up. CT A/P on 11/09 showed PEG site abscess and underwent EGD but no abscess drainages done. On antibiotics. Afebrile for more than 24h. - Follow blood cultures - Continue froy and doxy for 7 more days - If fever recurs, obtain CT A/P and MRI brain Will sign off. Call us with any questions. Gilberto Pastrana MD, PhD, [facility] * Good Antunez MD - 11/14/2022 8:37 AM CDT I have seen and examined the patient with the resident and I agree with the findings and plan of care as documented by the reisident. Date of Service: 11/14/2022 Good Antunez MD Multidisciplinary rounds were held at 9am and the patient's care and recovery plan were reviewed and developed with the assembled team. Consuelo Darby is a 42 year old F p/w M1 occlusion s/p TNK and MT and TICI2b revascularization on10/19. TTE showed mobile aortic valve vegetation. Developed MCA syndrome s/p hemicrani. 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 - Fever: consulted ID, broaden abx, Cxs. - MRI brain w/wo done (11/10): cortical enhancement along the right frontal parietal and temporal regions 2/2 infarct progression but can't rule out cerebritis or infections. ID recommends LP. -- glenis PEG fluid collection: Discussing with IR. - Urology replaced puentes (11/09-) Problem List Right middle cerebral artery stroke (CMS/HCC) (POA: Unknown) Acute cerebrovascular accident (CVA) due to embolism of right middle cerebral artery (CMS/HCC) (POA: Yes) Nihss score 9 (POA: Yes) Received intravenous tissue plasminogen activator (tPA) in emergency department (POA: Yes) GERD (gastroesophageal reflux disease) (POA: Yes) Hemianopsia (POA: Yes) Weakness (POA: Yes) Left-sided sensory deficit present (POA: Yes) Gaze palsy (POA: Yes) Migraine (POA: Unknown) Hypertension (POA: Unknown) Presence of externally removable percutaneous endoscopic gastrostomy (PEG) tube (CMS/HCC) (POA: Unknown) Anemia (POA: Yes) Hepatocellular injury (POA: No) See Resident note for the remaining problem specific plan. 26 MEDICATIONS FOR CURRENT ENCOUNTER: SCHEDULED MEDICATIONS: 0.9% NaCl injection 10-40 mL, Intracatheter, q8h 0.9% NaCl injection 3 mL, Intracatheter, q8h acetaminophen (Tylenol) tablet 500 mg, Enteral Tube, q6h doxycycline monohydrate capsule 100 mg, Enteral Tube, q12h guaiFENesin (Robitussin) solution 10 mL, Enteral Tube, q12h loratadine (Claritin) tablet 10 mg, Enteral Tube, QDAY meropenem (Merrem) 2,000 mg in 0.9% NaCl IV 140 mL IVPB, Intravenous, q8h metoprolol tartrate IR (Lopressor) tablet 25 mg, Enteral Tube, q12h pantoprazole EC (Protonix) tablet 40 mg, Oral, QDAY perflutren lipid microsphere (Definity) injection 0.5 mL, Intravenous, intra- Procedure multiple polyethylene glycol 3350 (Miralax) packet 17 g, Enteral Tube, BID senna-docusate (Senokot-S) tablet 2 tablet, Enteral Tube, QDAY tamsulosin (Flomax) capsule 0.4 mg, Enteral Tube, QDAY triamcinolone acetonide (Kenalog) 0.1 % ointment, Topical, BID verapamil (Isoptin) tablet 40 mg, Enteral Tube, q8h vitamin D3 (Cholecalciferol) 25 MCG (1000 UNITS) tablet 2,000 Units, Enteral Tube, QDAY ?? [COMPLETED] enoxaparin (Lovenox) injection 100 mg, Subcutaneous, q12h ?? CONTINUOUS MEDICATIONS: PRN MEDICATIONS: 0.9% NaCl injection 10-40 mL, Intravenous, PRN 0.9% NaCl injection 3 mL, Intracatheter, PRN bisacodyl (Dulcolax) suppository 10 mg, Rectal, QDAY PRN diphenhydrAMINE-zinc acetate (Benadryl Extra Strength) 2-0.1 % cream, Topical, PRN ?? oxyCODONE (immediate release) (Roxicodone) tablet 5 mg, Enteral Tube, q6h PRN Patient Vitals for the past 24 hrs: Temp Pulse Resp BP 11/14/22 0758 97.9 ??F (36.6 ??C) 79 16 105/58 11/14/22 0408 97.8 ??F (36.6 ??C) 91 -- 112/61 11/13/22 2332 97.5 ??F (36.4 ??C) 82 -- 108/67 11/13/22 1930 97.8 ??F (36.6 ??C) 80 -- 119/70 11/13/22 1630 97.5 ??F (36.4 ??C) 76 16 113/65 11/13/22 1341 -- 80 -- 110/60 11/13/22 1215 97.2 ??F (36.2 ??C) 83 16 115/68 11/13/22 1214 97.2 ??F (36.2 ??C) 83 16 115/ Recent Labs Component Name 11/14/22 0239 11/13/22 0210 11/12/22 0532 NA 140 138 136 CL 104 107 105 CO2 25 23 21* BUN 11 11 13 CREATININE 0.51* 0.54* 0.59 CALCIUM 8.6 8.1* 7.8* PHOS 3.5 3.9 2.5* Recent Labs Component Name 11/14/22 0239 11/13/22 0210 11/12/2232 10/23/2212810/22/22 0153 WBC 4.7 2.7* 4.8 - - RBC 3.47* 3.36* 3.27* - - HGB 9.9* 9.8* 9.4* - - HCT 32.8* 30.8* 30.2* - - PLT - - - - 199 - = values in this interval not displayed. Recent Labs Component Name 10/20/22 0302 06/15/22 0757 CHOL 173 204* TRIG 201* 251* HDL 42 37* LDLCALC 91 117* Recent Labs Component Name 10/20/22 1015 HGBA1C 6.0* EAG 126 Recent Labs Component Name 11/14/229 11/13/220 11/12/2253110/27/22202810/27/22 0054 PLTCOUNT 364 334 333 - 519* PLATELET - - - - Occasional* - = values in this interval not displayed. * Radha Covarrubias RN - 11/13/2022 4:35 PM CDT Problem: ELOPEMENT/ABDUCTION Goal: Risk for elopement &/or abduction during hospitalization is minimized Outcome: Progressing Problem: Pain/Discomfort Goal: Patient uses pharmacological and non-pharmacological pain management strategies. Outcome: Progressing Goal: Patient verbalizes acceptable level of pain relief and ability to engage in desired activity. Outcome: Progressing Problem: Mobility Goal: Patient's mobility/activity will be maintained as optimum level for age, diagnosis and physical limitations Outcome: Progressing Goal: Continuum of care needs are further met through referral to outpatient services when appropriate. Outcome: Progressing Goal: Patient reports the ability to perform Activities of Daily Living. Outcome: Progressing Problem: Communication Impairment/Dysarthria Goal: Ability to express needs and understand communication Outcome: Progressing Problem: Nutrition Goal: Nutritional status is improving Outcome: Progressing Problem: Glycemic Control Goal: Clinical indication of glycemia balance is achieved Outcome: Progressing Problem: Knowledge Deficit,Education,Discharge Plan Goal: The patient/family will understand cerebrovascular disease and its symptoms, treatment and management Outcome: Progressing Problem: Oral Intake: Inadequate oral intake Goal: Total intake will meet estimated nutrient needs Outcome: Progressing Problem: Swallowing Goal: LTG - Patient will tolerate the least restrictive diet consistency to allow for safe consumption of daily meals Outcome: Progressing Goal: STG - Patient will participate in instrumental assessment of swallowing as appropriate Outcome: Progressing Goal: STG - Patient will tolerate therapeutic trials of recommended consistency without clincial signs and symptoms of aspiration Outcome: Progressing Goal: STG - Patient will tolerate recommended food and liquid consistencies without clinical signs and symptoms of aspiration Outcome: Progressing Goal: STG - Patient will complete swallowing exercises Outcome: Progressing Goal: STG - Patient/family will complete oral motor exercises for improved bolus control Outcome: Progressing Problem: Transfers Goal: STG - Transfer from bed to chair Outcome: Progressing Problem: Risk for Violence: Self-Directed or Other Directed Description: Diagnosis: Risk for self-directed Violence or Risk for Directed Violence Risk Factors: Biochemical/neurologic imbalances, impulsivity, manic excitement, psychotic symptomatology, rage reaction, restlessness Possibly Evidenced By: agitated behaviors, delusional thinking, hallucinations, loud/threatening/profane speech, poor impulse control, provocative behaviors, verbal threats against others, verbal threats against self Goal: Patient will verbalize control of feelings. Outcome: Progressing Goal: Patient will respond to interventions when potential or actual loss of control occurs. Outcome: Progressing Goal: Patient will refrain from provoking others to physical harm. Outcome: Progressing Goal: Patient will display nonviolent behaviors toward others in the hospital, with the aid of medications and nursing interventions. Outcome: Progressing Goal: Patient will seek help when experiencing aggressive impulses. Outcome: Progressing Goal: Patient will refrain from verbal threats and loud, profrane language toward others. Outcome: Progressing Goal: Patient will be safe and free from injury. Outcome: Progressing Problem: Skin Integrity Goal: Skin integrity is maintained or improved Outcome: Progressing Problem: Neurological Deficit Goal: Neurological status is stable or improving Outcome: Progressing * Karishma Ojeda MD - 11/13/2022 3:53 PM CDT Stroke Service Daily Progress Note Consuelo Darby Age: [age] year old Date of : 1980 Date of Admission: 10/19/2022 Hospital Day: 25 Subjective ?? Consuelo Darby is a 41yo woman hemiplegic migraine,??GERD, GENESIS. who developed acute onset L sided weakness, L-sided sensory deficits, and dysarthria. L sided weakness resolved in route and dysarthriaimproved in route. On arrival patient noted to janete Amy florez plasy, L hemainopsia, mild dysarthria, and extinction. NIHSS: 7. S/p TNK and ??TICI2b revascularization of the R MCA M1 occlusion.Repeat CTH showing edema in R MCA territory. On 10/20/22 patient taken for hemicraniectomy, post-op CTH showing stable midline shift. Initial hypercoag work up negative, repeat in 2 months. ?? -10/23- SARAH concerning for aortic cusp vegetations. [...] by GI team while evaluating her for G tube 11/01 CT A/P obtained and no abscess was identified in the abdominal area. Postsurgical changes after vascular surgery. ?? 11/02 GI to take her to OR for G tube. Ready TTF. 11/03 start warfarin bridge 11/04 CT head for headache and eye discomfort after bumping her head on hemicrani site. NSGY aware and evaluated her. CT looks stable. 11/05 had a fever. Infectious workup initiated and ID reconsulted. Plan to broaden spectrum (currently on ceftriaxone + vanc, switch to cefe + vanc + doxycycline ) after blood cultures are taken 11/06: no acute event. On heparin gtt. Warfarin bridge. INR 1.4. 9/1: underwent gastric erosion for abscess underlying peg by ACS 11/12: vanc d/c for concerns abt drug fever Interval History: Patient had no acute events occur overnight. Last fever at 5:37 pm yesterday. Objective Patient Vitals for the past 24 hrs: BP Temp Temp src Pulse Resp SpO2 11/13/22 1341 110/60 -- -- 80 -- -- 11/13/22 1215 115/68 97.2 ??F (36.2 ??C) Axillary 83 16 97 % 11/13/22 1214 115/68 97.2 ??F (36.2 ??C) Axillary 83 16 98 % 11/13/22 0802 100/58 97.8 ??F (36.6 ??C) Axillary 88 16 98 % 11/13/22 0411 116/67 98.7 ??F (37.1 ??C) Axillary 92 -- 96 % 11/12/22 2355 101/52 98.5 ??F (36.9 ??C) Axillary 91 -- 96 % 11/12/229 -- 98.6 ??F (37 ??C) Oral -- -- -- 11/12/22 1939 111/57 99.1 ??F (37.3 ??C) Oral 100 -- 95 % 11/12/22 1919 -- 99.6 ??F (37.6 ??C) Oral -- -- -- 11/12/22 1719 -- (!) 100.3 ??F (37.9 ??C) Oral -- -- -- Intake/Output Summary (Last 24 hours) at 11/13/2022 1553 Last data filed at 11/13/2022 1441 Gross per 24 hour Intake 393 ml Output 4850 ml Net -4457 ml Exam: Cortical Function Mental Status Awake, alert, follows basic commands Orientation REYNOLD Language No verbal output but family says she spoke words to them Visual Powell Intact bilaterally to confrontation Neglect No visual neglect noted, no tactile neglect noted ?? Cranial Nerves II Pupils 3 mm and bilaterally reactive to light. Fundoscopic exam not performed. VIII Hearing is intact bilaterally to voice. III/IV/ Extraocular muscles intact. No diplopia, ptosis, nystagmus or convergence abnormalities noted. IX/X REYNOLD V REYNOLD XI Head turning and shoulder shrug are intact. VII L facial palsy XII Tongue is midline with normal movements and no atrophy noted. ?? Motor Function Movement No abnormalities noted Bulk No abnormalities noted Tone No abnormalities noted ?? Moves RUE and RLE 4/5 strength, tries to withdraw to pain in LUE and LLE 2/5 in left side ?? Sensory Light Touch Symmetric and intact bilaterally Noxious Stimuli Symmetric and intact bilaterally ?? Labs: Recent Labs Component Name 11/13/2220911/12/22 0532 11/11/22 1703 10/23/22 0129 10/22/22 0153 WBC 2.7* 4.8 5.0 - - RBC 3.36* 3.27* 3.41* - - HGB 9.8* 9.4* 9.9* - - HCT 30.8* 30.2* 31.9* - - PLT - - - - 199 - = values in this interval not displayed. Recent Labs Component Name 11/13/2220911/12/22 0532 11/11/22 1703 NA 138 136 140 CL 107 105 108* CO2 23 21* 22 BUN 11 13 11 CREATININE 0.54* 0.59 0.56 CALCIUM 8.1* 7.8* 8.4 No results for input(s): MG in the last 13167 hours. Recent Labs Component Name 11/13/2220911/12/22 0532 11/11/22 1703 PHOS 3.9 2.5* 3.3 Recent Labs Component Name 11/13/2220911/12/22 0532 11/11/22 2351 11/11/22 17011/11/22 0928 PT 17.7* 22.1* - - 16.2* INR 1.5 2.0 - - 1.3 PTT 47.9* 102.7* 78.8* - 129.8* - = values in this interval not displayed. No results for input(s): A1C in the last 46959 hours. Recent Labs Component Name 10/20/22 0302 06/15/22 0757 CHOL 173 204* HDL 42 37* LDLCALC 91 117* TRIG 201* 251* Recent Labs Component Name 11/13/22209 TSH 5.706* No results for input(s): CKMB, CKTOTAL, CKMB, TROPONINI, BNP in the last 75309 hours. XR CHEST 1VW PORTABLE Result Date: 11/13/2022 PROCEDURE: XR CHEST 1VW PORTABLE, DATE/TIME OF EXAM: 11/12/2022 8:45 PM, LOCATION [facility] INDICATION: R50.9: Fever, unspecified fever cause ADDITIONAL [...] abnormality. Report dictated by Agnes Olmos DO (resident services coordinator). I, Pepe Gonzalez MD have p ersonally reviewed and interpreted this examination/study. > Interpreting Provider: Pepe Gonzalez MD on 11/13/2022 11:59 AM MRI BRAIN WWO CONTRAST Result Date: 11/10/2022 PROCEDURE: MRI BRAIN WWO CONTRAST, DATE/TIME OF EXAM: 11/09/2022 11:51 PM, LOCATION [facility] INDICATION: R50.9: Fever, unspecified fever cause ADDITIONAL [...] enhancement along the soft tissues surrounding the extra- axial collection Redemonstration of extensive cytotoxic edema in the right frontotemporoparietal regions, the right insula, and the right basal ganglia, extending along the martínez radiata /right centrum semiovale compatible with evolving acute rightMCA territory infarction. Some of these lesions show persistent restricted diffusion including basal ganglia and the right periventricular white matter suggesting evolving infarction. There is persistent local mass effect on the right cerebral hemisphere with effacement of the overlaying sulci, mild external herniation of the infarcted brain through the craniectomy defect. Interval resolution of effacement of the right lateral ventricle and the [id number] midline shift. Extensive susceptibility artifacts along the [...] CT suggesting evolving cortical laminar necrosis. Interval resolutionof restricted diffusion along small areas of, left [...] stable. The visualized portions of the orbits appeargrossly unremarkable. No significant opacification of the paranasal or mastoid air cells.. Normal flow voids are demonstrated in the carotid arteries and basilar artery. The calvarium and visualized cervical spine otherwise appear normal. IMPRESSION: 1. Redemonstration of postsurgical changes from right decompressive hemicraniectomy andevolving large volume right MCA territory infarct as described above. Mild interval increase in thecaliber of lateral and third ventricles could be secondary to decreased mass effect, less likely hyd rocephalus, continued attention recommended on follow-up. 2. Interval [...] the extra-axial fluid collection overlying the craniectomy sitecould be secondary to evolving blood products/postsurgical changes versus secondary to superimposedinfection, clinical correlation is recommended. These findings were discussed with patient's care provider, Dr. Tucker, stroke team, by on 11/10/2022 11:59 AM with read back verification. > Interpreting Provider: Oriana Suarez MD on 11/10/2022 12:[address] ABDOMEN PELVIS W CONTRAST Result Date: 11/10/2022 PROCEDURE: CT ABDOMEN PELVIS W CONTRAST DATE/TIME OF EXAM: 11/09/2022 4:49 PM CLINICAL INFORMATION: None relevant/not provided if blank. 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 TECHNIQUE: CT of the abdomen and pelvis was performed following intravenous contrast utilizing standard protocol. CT dose reduction technique was used, including Automated Exposure Control. CONTRAST: IOPAMIDOL 76 % IV SOLN:100 mL FINDINGS: Lung bases are clear. Liver is normal. The gallbladder is absent. The spleen is normal. The pancreas is normal. There is a duodenal diverticulum. Both adrenal glands are normal. Both kidneys enhance symmetrically with no hydronephrosis. T he urinary bladder is decompressed with a Puentes catheter. Uterus is normal. A gastrostomy tube is present. There is a 2 cm rim-enhancing collection along the inferior aspect of the gastrostomy tube with small locule of gas seen on series 6 image 67 measuring 2.2 cm. There is no bowel obstruction. There is progressive soft tissue stranding with a mass in the right groin measuring 4 cm with small locules of gas, likely inflammatory mass. There is mass effect on the right femoral artery with mild narrowing as marked narrowing of the femoral vein, encased by the collection. Abdominal aorta is normal in caliber. The portal vein is patent. No suspicious osseous lytic or blastic lesion. IMPRESSION: 1. Progressive soft tissue stranding with gas in the right inguinal region with an inflammatory mass encasing the right femoral vessels with mild narrowing of the femoral artery and moderate narrowing of the femoral vein. This could represent a postsurgical hematoma. Recommend correlation with symptoms and signs of superinfection. 2. Interval placement of a gastrostomy tube with a small gas and fluid collection along the inferior aspect of the gastrostomy tube insertion site and stomach, measuring 2.2 cm. Findings communicated with Dr. Goyal at 2005 hours on 11/09/2022 > Interpreting Provider: Pepe Gonzalez MD on 11/10/2022 12:[address] ANGIO CHEST PULM EMBOLISM Result Date: 11/07/2022 PROCEDURE: CT ANGIO CHEST PULM EMBOLISM, DATE/TIME OF EXAM: 11/07/2022 5:25 PM, LOCATION [facility] INDICATION: R50.9: Fever, unspecified fever cause ADDITIONAL CLINICAL INFORMATION:Ordering Provider Reason For Exam: PE, fever COMPARISON: CT chest abdomen pelvis with contrast dated 10/25/2022. TECHNIQUE: CT of the chest was performed following the uneventful administration of 100mL of Isovue 370 intravenous contrast according to [...] suspicious pulmonary nodules are identified. No pleural fluidor pneumothorax is present. Heart and Pericardium: The cardiac chambers are normal in size. No pericardial fluid or thickening is present. There is no radiographic evidence of right heart strain. Mediastinum and Isabel: No enlarged lymph nodes are present. Bones and Chest Wall: Bone windows demonstrate no suspicious lytic or blastic lesions. The visible osseous structures are intact. Upper Abdomen:The visible portions of the upper abdominal organs are normal. Impression: 1.No evidence of acute pulmonary embolism. There is no radiographic evidence of right heart strain. 2.No other acute process within the chest. > Dictated by Tim Major MD (resident services coordinator). I, Alexx Lopez have personally reviewed and interpreted this examination/study. > Interpreting Provider: Alexx Lopez on 11/07/2022 10:30 PM ECHO COMPLETE Result Date: 11/07/2022 ??? Left??Ventricle: Left ventricle size is normal. EDV Index BP is 55.3 mL/m2. ESV Index BP is 18.3 mL/m2. Normal wall thickness. LVPWd is 1.01 cm. Ventricular mass is normal. Mass index 2D is 61.25g/m2. Normal systolic function with a visually estimated EF of 65 - 70%. EF by 2D Abarca biplane is 67%. Normal wall motion. Normal diastolic function. Normal mean left atrial pressure. Tissue Doppler velocity is reduced. MV peak E velocity is 102.695 cm/s. MV e' lateral velocity is 14.141 cm/s. MV e' septal velocity is 10.702 cm/s. ??? Right ventricle size is normal. Normal free wall thickness.RV wall thickness is 0.5 cm. Normal wall [...] mmHg). IVC is normal in size. SVC wasnot assessed. ??? Estimated sPAP is 23.0 mmHg. Estimated RVSP is 23.0 mmHg. RAP is 3.0 mmHg. Mean PA pressure of 15 mmHg. PVR < 1.5 Wood units. ? ? Normal valve morphology nd function. ? ? No pericardial effusion. ??? Normal sized annulus, sinus of Valsalva (aortic root), ascending aorta, aorticarch, descending aorta and abdominal aorta. Normal echocardiogram by 2D, m-mode, color and spectralDoppler echocardiography. IR INTRACRANIAL MECH THROMBECT Result Date: 11/07/2022 PROCEDURE: IR INTRACRANIAL MECH THROMBECT DATE/TIME OF EXAM: 10/19/2022 10:41 AM Procedure: CerebralAngiogram and Mechanical Thrombectomy for Acute Stroke Comparison Study: History: 41 year oldwith GERD, tobacco, p/w left sided neglect both sensory and visual, LWK 6:30, s/p TNK. CTA 1 M1 occlusion.Will take to IR for a mechanical thrombectomy. Notification Time: 8:21 NIHSS Score: 6 ASPECTS: 9 In-room: 8:48 Puncture Time: 8:53 Location of Clot: R M1 MCA Initial TICI: 0 Time to Clot: 9:37 Time to Reperfusion: 9:54 Final TICI: 2b Pit Slagman: Dr. Mitali Walter Meteorologist In Charge(s): Isak Monte Vessels: Ultrasound Guided Access of Femoral Artery Ultrasound Guided Access of Radial Artery Arterial line placement in the right radial artery Right Common Carotid Artery Angiogram: Cerebral Intracranial Catheterization Mechanical Thrombectomy with Retrievable Stent and Reperfusion Catheter Angiography Through the Existing Catheter Right Femoral Artery Angiogram Anesthesia: General Anesthesia was performed and monitored by an attending Anesthesiologist and their technical services assistant throughout the entirety of the case Procedural Detail: The risks, benefits, and alternatives to procedure were discussed in detail with the patient and her family. These included but were not limited to the risk of blood loss, vessel injury, stroke, renal injury, and contrast allergy. The patient was brought to the biplane a ngiography suite where she underwent prep and drape procedures. Limited ultrasound of the right radial artery demonstrated a patent vessel. A 5 new zealander sheath was placed in the radial artery and was used as an arterial line. Limited ultrasound of the common femoral artery demonstrated a patent vessel. The take off of the profunda and other arteries were identified. A scott scale image was documented. The right common femoral artery was accessed using a micropuncture needle. The needle entry was documented. Following a series of exchanges, a 8 Russian sheath sheath was placed in the right femoralartery. A Guide and a 6 Russian Penumbra Select Serrano 2 catheter along with a stiff 0.035 Glidwirewas navigated into the aortic arch. The catheter was used to select brachiocephalic artery followedby the right common carotid artery and finally [...] then removed from the arterial system. After 5min were allowed to elapse for maximal [...] system. Hemostasis was achieved using a 8 Russian Angio-Seal closure device. Hemostasis was immediate at [...] revascularization on the MCA territory was visualized. Impression: 1. TICI2b revascularization of the R MCA M1 occlusion. Location of Clot: Right M1 segment Initial TICI: 0 Final TICI: 2b Ceci, Dr. Jim Walter, was present and performed/supervised theentire procedure. IiJm MD have personally reviewed and interpreted this examination/study. > Interpreting Provider: Jim Walter MD on 11/07/2022 9:21 AM XR ABDOMEN KUB PORTABLE Result Date: 11/06/2022 PROCEDURE: XR ABDOMEN KUB PORTABLE, DATE/TIME OF EXAM: 11/05/2022 5:28 PM, LOCATION [facility] INDICATION: R50.9: Fever, unspecified fever cause ADDITIONAL CLINICAL INFORMATION: Ordering Provider Reason For Exam: constipation Technologist Note: Additional: COMPARISON: 10/28/2022 KUBFINDINGS: PEG tube overlying left upper quadrant. Interval removal of enteric tube. There is no dilatation of small or large bowel. No pneumoperitoneum or pathological calcification is seen. The visible osseous structures are intact. The lung bases are clear. IMPRESSION: Non-obstructive bowel gas pattern. Report dictated by Mc Castro MD, (resident services coordinator). I, Pepe Gonzalez MD have personally reviewed and interpreted this examination/study. > Interpreting Provider: Pepe Gonzalez MD on 11/06/2022 10:[address] HEAD WO CONTRAST Result Date: 11/05/2022 PROCEDURE: CT HEAD WO CONTRAST DATE/TIME OF EXAM: 11/05/2022 12:11 AM CLINICAL INFORMATION: None relevant/not provided if blank. 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 CT dose reduction technique was used, including Automated Exposure Control. FINDINGS: Redemonstration of postsurgical changes from decompressive right frontal parietotemporal craniectomy. Unchanged herniation of the right frontoparietal and temporal lobes through the craniectomydefect. Unchanged evolving large right MCA territory infarction involving the right frontal parietal and temporal lobes. 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 No significant midline shift. Unchanged ex vacuo dilation of the right lateral ventricle. There is interval increase in cortical hyperdensity involving the right parietal, frontal lobes (image 11, 12, 14, series 3). Extra-axial fluid collection overlying the herniated right cerebral convexity measuring 1.5 cm in thickness, not significantly changed compared to prior study. No interval change in the scott- white matter differentiation. No significant opacification of the mastoid or paranasal sinuses. No acute soft tissue findings or calvarial findings. IMPRESSION: 1. Redemonstration of post surgical changes from decompressive hemicraniectomy and evolving large right MCA territory subacute infarct. Interval increased linear hyperdense foci along thecortex of right frontal and parietal lobes could be secondary to evolving cortical laminar necrosisversus developing petechial hemorrhages. Continued attention recommended on short-term follow-up. However no hematoma noted. No evidence of midline shift. These findings were discussed with patient'scare provider, Dr. Roth with neurology, by on 11/05/2022 5:46 PM with read back verification. > Interpreting Provider: Oriana Suarez MD on 11/05/2022 5:48 PM XR CHEST 1VW PORTABLE Result Date: 11/05/2022 PROCEDURE: XR CHEST 1VW PORTABLE, DATE/TIME OF EXAM: 11/05/2022 9:38 AM, LOCATION [facility] INDICATION: R50.9: Fever, unspecified fever cause ADDITIONAL CLINICAL INFORMATION: Ordering Provider Reason For Exam: consolidation COMPARISON: Chest radiograph 10/29/2022. FINDINGS/IMPRESSION: Previously seen feeding tube has been removed. These no confluent consolidation, pleural effusion, or pneumothorax is noted. The cardiomediastinal silhouette is stable. No acute osseous abnormality is noted. Report dictated by Christopher Tobin MD, MD (resident services coordinator). I, HEATHER FREGOSO MD have personally reviewed and interpreted this examination/study. > Interpreting Provider: HEATHER FREGOSO MD on 11/05/2022 2:[address] ABDOMEN WO CONTRAST Result Date: 11/02/2022 PROCEDURE: CT ABDOMEN WO CONTRAST, DATE/TIME OF EXAM: 2022 6:47 PM, LOCATION [facility] INDICATION: Z93.1: Presence of externally removable percutaneous endoscopic gastrostomy (PEG) tube (CMS/HCC) ADDITIONAL CLINICAL INFORMATION: Ordering Provider Reason For Exam: diffcult percutaneous PEG tube placement, rule out complications COMPARISON: CT abdomen pelvis with contrast dated 10/31/2022 TECHNIQUE: CT of the chest, abdomen, and pelvis was performed without contrast according to standard protocol. Findings: Evaluation of visceral and vascular structures is degraded due tolack of intravenous contrast administration. Lines/tubes: *Interval placement of a percutaneous trudi rostomy tube with intraluminal placement of tip and [...] Bone windows demonstrate no suspicious lytic or blasticlesions. The visible osseous structures are intact. Soft tissues: Normal. Impression: Interval placement of a percutaneous gastrostomy tube with intraluminal placement of tip and inflated balloon within the body/antrum of the stomach without complication, as clinically queried.. > Dictated by Tim Major MD (resident services coordinator). I, Pepe Gonzalez MD have personallyreviewed and interpreted this examination/study. > Interpreting Provider: Pepe Gonzalez MD on 11/02/2022 1:[address] ABDOMEN PELVIS W CONTRAST Result Date: 10/31/2022 PROCEDURE: CT ABDOMEN PELVIS W CONTRAST, DATE/TIME OF EXAM: 10/31/2022 10:16 AM, LOCATION [facility] INDICATION: I33.0: Aortic valve vegetation ADDITIONAL CLINICAL INFORMATION: Ordering Provider Reason For Exam: abscess? Technologist Note: Additional: COMPARISON: CT chest abdomen and pelvis 10/25/2022. TECHNIQUE: CT of the abdomen and pelvis was performed following the uneventful administration of 100 mL of Isovue 370 intravenous contrast according to standard protocol. Findings: Lower Chest: Bibasilar subsegmental atelectasis present. Liver: Normal. Gallbladder and Bile Ducts: The gallbladder is absent. Spleen: Normal. Pancreas: Normal. Adrenals: Normal. Kidneys: Normal. Bladder: A Puentes catheter terminates within a decompressed urinary bladder. Gastrointestinal: Enteric tube terminates in the stomach. Duodenal diverticulum present. The stomach and visualized loops of large and small bowel are otherwise unremarkable. Normal appendix. Mesentery/Peritoneum/Retroperitoneum: Normal. Reproductive Organs: The uterus is normal. Vasculature: There is been interval postsurgical changes to the right common femoral/external iliac artery region with previously seen thrombus in this region no longer visualized. There is however irregularity of the distal right external iliacand proximal right common femoral artery and mild narrowing in this region likely resenting postsurgical changes. Questionable flap in the proximal common femoral artery (series 3 image 153). Bones: Bone windows demonstrate no suspicious lytic or blastic lesions. The visible osseous structures are intact. Soft tissues: There is extensive soft tissue stranding edema and fluid throughout the right groin with multiple foci of subcutaneous gas along likely represent post surgical changes. Although there is focal fluid was prominent at series 3, image 153 in this region no rim- enhancing drainable fluid collections are appreciated at this time. Impression: 1.Interval postsurgical changes to the distal right external iliac/proximal right common femoral arteries with previously seen thrombus in this region no longer visualized. There is however irregularity of the artery in this region with mild narrowing which is favored to represent postsurgical changes. Questionable flap within the proximal common femoral artery as detailed above. 2.Extensive soft tissue stranding, edema and fluid along with subcutaneous gas in the right groin likelyrepresenting postsurgical changes. Although there is focal fluid in this region, no rim-enhancing drainable fluid collections are appreciated at this time. > Interpreting Provider: Alexx Lopez on 10/31/2022 11:[address] HEAD WO CONTRAST Result Date: 10/31/2022 EXAM: CT HEAD WO CONTRAST, DATE/TIME OF EXAM: 10/30/2022 8:22 PM, LOCATION: [facility] HISTORY: I63.511: Right middle cerebral artery stroke (CMS/HCC) ADDITIONAL CLINICAL INFORMATION: Ordering Provider Reason For Exam: Heparin supratherapeutic bleed follow up. EXAMINATION: CT scan of the head without intravenous contrast TECHNIQUE: CT of the head was performed without intravenouscontrast according to standard protocol. CT dose reduction technique was used, including Automated Exposure Control. COMPARISON: Head CT 10/28/2022. Brain MRI 10/24/2022. FINDINGS: See impression. IMPRESSION: Compared to prior head CT 10/28/2022: 1.Re-demonstrated postsurgical changes of decompressive right frontoparietotemporal craniectomy with multiple overlying scalp carla. Evolving heterogeneous subdural hematoma along the right frontotemporal convexity measuring up to 8 mm in maximal thickness (5/32), previously measuring up to 9 mm in thickness. 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 Increased conspicuity of a thin hyperdensity along the cortex within this region suggestive of evolving cortical laminar necrosis. 3.Re-demonstrated small hypodensity of the left inferior frontal gyrus/frontal operculum, consistent with an evolving pawvpkos-zj-ajemdmg infarct. 4.No significant midline shift. Similar-appearing size and configuration of the ventricles without evidence of hydrocephalus. Basal cisterns are patent. 5.No other convincing change. Partially imaged left nasoenteric tube. > Interpreting Provider: Amanda Real MD, PhD on 10/31/2022 1:26 AM MI GLENN Llamas ANGIO TEAM Result Date: 10/30/2022 Fluoroscopy was used for this exam in the OR. Please see the Operative report. XR CHEST 1VW PORTABLE Result Date: 10/29/2022 PROCEDURE: XR CHEST 1VW PORTABLE, DATE/TIME OF EXAM: 10/29/2022 10:29 AM, LOCATION [facility] INDICATION: R09.02: Hypoxia ADDITIONAL CLINICAL INFORMATION: Ordering Provider Reason For Exam: evaluate for hypoxia COMPARISON: Chest x-ray from 10/27/2022 FINDINGS/IMPRESSION: Enteric tube is seen coursing over the diaphragm without visualization of the distal tip. There is no focal consolidation, pleural effusion, or pneumothorax. The cardiomediastinal silhouette is normal. Report dictated by Jacques Russell DO (resident services coordinator). Jacques Ornelas DO have personally reviewed and interpreted this examination/study. 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 Report dictated by Jacques Russell DO (resident services coordinator). Jacques Ornelas DO have personally reviewed and interpreted this examination/study. 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 FINDINGS/IMPRESSION: Enteric tube courses below the diaphragm with the distal tip superimposing the antropyloric region. Report dictated by Martell Shetty MD (resident services coordinator). I, Jacques Cole DO have personally reviewed and interpreted this examination/study. > Interpreting Provider: Jacques Cole DO on 10/28/2022 12:[address] HEAD WO CONTRAST Result Date: 10/28/2022 PROCEDURE: CT HEAD WO CONTRAST, DATE/TIME OF EXAM: 10/28/2022 5:28 AM, LOCATION [facility] INDICATION: Z91.89: At high risk for bleeding after thrombolytic therapy monitor for hemorrhagic bleed given heparin use in massive stroke EXAMINATION: Computed tomography (CT) of the head without contrast TECHNIQUE: CT of the head was performed without contrast according to standard protocol. CT dose reduction technique was used, including Automated Exposure Control. COMPARISON: CT head without contrast dated 10/27/2022 FINDINGS: Redemonstrated are postoperative changes of decompressiveright frontoparietotemporal craniectomy, with multiple overlying scalp carla. Redemonstrated slightly heterogeneous subdural hemorrhage along the right frontotemporal convexity measuring 9 mm in the maximal thickness (series 3 image 17), without significant change compared to prior study. Redemonstrated evolving right MCA infarct. There is moderate mass effect on the right lateral ventricle. There is again associated mild external herniation through the craniectomy site. Unchanged gyriform hyperdensity within the infarcted area which may represent laminar necrosis. Small volume of subarachnoid hemorrhage cannot be completely ruled out. No new acute intracranial hemorrhage. The ventricles are mildly dilated compared to 10/19/2022, otherwise unchanged compared to 10/27/2022. The basal cisterns are patent. No midline shift is seen. Unchanged small focus of hypoattenuation in the left frontal lobe (series 3 image 20) likely represents a small subacute infarct. Partially visualized nasogastric tube. The visualized portions of the orbits, paranasal sinuses, and mastoids appear normal. No acute calvarial fracture is identified. IMPRESSION: 1. Evolving right MCA subacute infarct status post decompressive craniectomy. Grossly unchanged right frontotemporal subdural hemorrhage. Grossly unchanged gyriform hyperdensity in the infarcted area may represent subarachnoid hemorrhage. No midline shift. Unchanged mildly dilated ventricles may represent mild hydrocephalus. 2. Unchanged small focus of hypoattenuation in the left frontal lobe likely represents additional subacute infarct. The report is dictated by Kayla Stevenson MD (resident services coordinator) 1 Lonnie Ornelas MD have personally reviewed and interpreted this examination/study. > Interpreting Provider: Lonnie Rae MD on 10/28/2022 9:15 AM XR CHEST 1VW PORTABLE Result Date: 10/27/2022 PROCEDURE: XR CHEST 1VW PORTABLE, DATE/TIME OF EXAM: 10/27/2022 10:19 AM, LOCATION [facility] INDICATION: D72.829: Leukocytosis, unspecified type ADDITIONAL CLINICAL INFORMATION: Ordering Provider Reason For Exam: any concern for pneumonia COMPARISON: Chest radiograph dated 10/25/2022. FINDINGS/IMPRESSION: Enteric tube courses below the diaphragm and out of the jnzkp-hy-pkzc. RUQ surgical clips are present. No focal consolidation. No pleural effusion or pneumothorax. The cardiomediastinal silhouette is normal. Report dictated by Agnes Olmos DO (resident services coordinator). IPepe MD have personally reviewed and interpreted this examination/study. 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 COMPARISON: 10/26/2022. FINDINGS: Redemonstration of postoperative anisha nges of decompressive right cranioplasty. An evolving extra-axial hematoma is again noted in the craniotomy site. Small volume subarachnoid hemorrhage is is again seen in the right cerebral sulci. Again noted is herniation of the intracranial contents through the craniectomy defect. Again demonstrated is an evolving subacute infarct in the nearly entire right MCA distribution, grossly unchanged. There is persistent mass effect on the lateral ventricle. A small hypoattenuating focus is again noted in the left frontal lobe, which may represent a small subacute infarct. The ventricles are stable. The basal cisterns are patent. No midline shift. The scott-white matter differentiation is normal. The visualized portions of the orbits, paranasal sinuses, and mastoids appear normal. No acute calvarial fracture is identified. IMPRESSION: 1. Redemonstration of evolving right MCA subacute infarct, status post right decompressive craniectomy. The extra-axial hematoma underlying the craniectomy site and subarachnoid hemorrhage in the right cerebral sulci are grossly unchanged. Mass effect on the right lateral ventricle is unchanged. No significant midline shift. 2. Small focus of likely a subacute infarct in the left frontal lobe is unchanged. > Interpreting Provider: Lonnie Rae MD on 10/27/2022 12:10 PM XR CHEST 1VW PORTABLE Result Date: 10/26/2022 PROCEDURE: XR CHEST 1VW PORTABLE, DATE/TIME OF EXAM: 10/25/2022 9:41 AM, LOCATION [facility] INDICATION: I63.511: Right middle cerebral artery stroke (CMS/HCC) ADDITIONAL CLINICAL INFORMATION: Ordering Provider Reason For Exam: Atlectasis/mucus plugging Comparison: Chest x-ray from10/23/2022, and CT chest, abdomen, pelvis from same day FINDINGS/IMPRESSION: Interval removal of theendotracheal tube. Enteric tube courses below the diaphragm and out of the [id number]-gq-rokv. There is severe left rotation of the patient in this study. There is no focal consolidation, pleural effusion, or pneumothorax. The left upper lobe pulmonary nodule noted on chest CT from same day is not visualized on this plain film. The cardiomediastinal silhouette is normal. The visible bony thorax is intact. Report dictated by Royer Stovall MD (resident services coordinator). Alexx Ornelas have personally reviewed and interpreted this examination/study. 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 COMPARISON: Comparison ismade with a CT head dated 10/25/2022. FINDINGS: Redemonstration of postoperative changes of right decompressive hemicraniectomy. Redemonstration of large volume confluent acute infarct in the right MCA territory involving the right frontal parietal temporal and insular regions and basal ganglia. Redemonstration of mild herniation of the right frontoparietal and temporal regions through the craniectomy defect. Redemonstration of a curvilinear extra-axial/extracranial fluid collection overlying the right cerebral convexity containing debris and blood products, measuring about 7 mm in thickness not significantly changed compared to prior study. Redemonstration of linear foci of hyperdensity along the evolving infarct most likely secondary to prominent vasculature. No new hyperdense foci within the evolving infarct. No evidence of transtentorial or tonsillar herniation. Station a mass effectfrom the large evolving right MCA territory infarct with effacement of sulci, and effacement of theright lateral ventricle. There is a large area of recent infarction seen in the right hemisphere inthe MCA territory with associated mass effect and some effacement of the right lateral ventricle grossly unchanged from prior. There are foci of hypoattenuation consistent with small evolving subacute to acute infarcts within the left frontal lobe periventricular white matter and left martínez radiata extending up to the left frontal subcortical regions also unchanged compared to prior study. No new intracranial hemorrhage or intra- or extra-axial fluid collections are identified. The left lateral ventricle, third and fourth ventricles are of normal size, shape, and morphology. The basal cisterns are patent. Leftward midline shift is approximately 2 mm as measured at the foramen of Monro, unchanged from yesterday. The visualized portions of the orbits, paranasal sinuses, and mastoids appearnormal. No acute calvarial fracture is identified. Partially visualized nasal tube IMPRESSION: 1. Redemonstration of evolving large right MCA territory acute to subacute infarct without definite evidence of hemorrhagic transformation. Unchanged minimal leftward midline shift of about 2 mm at the level of foramen of Monro and effacement of the left lateral ventricle. 2. Redemonstration of postsurgical changes from right-sided decompressive hemicraniectomy, unchanged compared to prior study. These results were discussed with stroke resident Dr Mendez by Dr. Miranda Bowen at8:05 AM on 10/26/2022 with read back confirmation and closed-loop communication. The report is dictated by Miranda Bowen MD (resident services coordinator) I, Oriana Suarez MD have personally reviewed and interpreted this examination/study. > Interpreting Provider: Oriana Suarez MD on 38:[address] CHEST ABDOMEN PELVIS W CONT Result Date: 10/25/2022 PROCEDURE: CT CHEST ABDOMEN PELVIS W CONT, DATE/TIME OF EXAM: 10/25/2022 12:56 PM, LOCATION [facility] INDICATION: I63.511: Right middle cerebral artery stroke [...] Neck and Axillae: Normal. Lungs: Subsegmental atelectasis ofthe posterior lungs. No pleural fluid or pneumothorax is present. There is a 3 mm nodule in the left upper lobe (image 47 series 5). Heart and Pericardium: The cardiac chambers are normal in size. Nopericardial fluid or thickening is present. Mediastinum and [...] groin. Subcutaneous gas in the lower left anteriorabdominal wall related to subcutaneous injections. Impression: 1.Occlusion [...] verification. > Dictated by Clarisa Cantrell MD (resident services coordinator). I, Alexx Lopez have personally reviewed and interpreted this examination/study. > Interpreting Provider: Alexx Lopez on 10/25/2022 4:[address] HEAD WO CONTRAST Result Date: 10/25/2022 PROCEDURE: CT HEAD WO CONTRAST, DATE/TIME OF EXAM: 10/25/2022 12:56 PM, LOCATION [facility] INDICATION: I63.511: Right middle cerebral artery stroke ([facility]) I33.0: Aortic valve vegetation ADDITIONAL CLINICAL INFORMATION: Ordering Provider Reason For Exam: stroke follow up, eval for any bleeds Technologist Note: Additional: EXAMINATION: Computed tomography (CT) of the head without contrast TECHNIQUE: CT of the head was performed without contrast according to standard protocol.CT dose reduction technique was used, including Automated Exposure Control. COMPARISON: Comparison is made with brain MR [address] head dated 10/23/2022 FINDINGS: There are postoperative ch anges of right hemicraniectomy. There is soft tissue thickening and skin crala overlying the operative defect. There is curvilinear fluid collection collection overlying the right cerebral convexity within the craniectomy defect containing some recent blood products and which measures approximately 22 mm in maximum thickness. There is a large area of recent infarction in the right cerebral hemisphere in the distribution in the distribution of the right middle cerebral artery. Mass effect is produced by this. There is a small amount of midline shift right to left of roughly 2 mm at the levelof the foramen of Monro. There is some compression of the right lateral ventricle. The left lateral ventricle, third, and fourth ventricles are normal in size. There are foci of decreased attenuationconsistent with small recent infarcts within the left frontal lobe and left martínez radiata. Bone window images demonstrate no signal suspicious lytic or blastic lesions. When today's study is compared to the parenchyma of 24 October [address] 23 October, there may be slightly less mass effectand midline shift on today's study and the fluid collection within the craniectomy defect overlyingthe lateral right cerebral hemisphere is slightly smaller. There has been interval removal of the drainage tube that was present within the craniectomy defect on previous brain CT and there is less ai r/gas within the operative defect relative to the previous brain CT. IMPRESSION: Redemonstrated postoperative changes consistent with right calvarial hemicraniectomy. Fluid collection overlying the lateral right cerebral hemisphere within the craniectomy defect containing some recent blood products. The overall size of this fluid collection is less than on previous study. In addition, there is less air/gas within this defect. Evolving large recent right cerebral hemisphere infarct with mass effect and approximately 2 mm of midline shift right to left. There appears to be slightly less mass effect and midline shift on today's study. Continued follow-up is recommended. Small recent cortical infarct in the lateral left frontal lobe as well as small recent infarc t in left martínez radiata which appears similar to previous study. Clinical correlation recommended.The report is dictated by Miranda Bowen MD (resident services coordinator) I, Joni Fabian MD have personally reviewed and interpreted this examination/study. > Interpreting Provider: Joni Fabian MD on 10/25/2022 2:[address] CARDIAC ANGIO STRUCT MORPH Result Date: 10/25/2022 PROCEDURE: CT CARDIAC ANGIO STRUCT MORPH, DATE/TIME OF EXAM: 10/23/2022 3:08 PM, LOCATION [facility] INDICATION: I63.411: Acute cerebrovascular accident (CVA) due to embolism of right middle cerebral artery (CMS/HCC) ADDITIONAL CLINICAL INFORMATION: Ordering Provider Reason For Exam: L atrial valve vegetations Technologist Note: Additional: COMPARISON: None. Procedure: CT structure and morphology with intravenous contrast material, including 3D image post-processing Acquisitionmode: Retrospective ECG gated. Contrast type and volume:Isovue .100 mL. Complications: None.. Imagequality: Good signal noise. There is motion artifact Heart rate: 99 bpm. Coronaries: The coronary arteries are not completely visualized due to motion artifact given the increase heart rate. Within the limitations, coronary arteries are normal in course and morphology and patent without calcification or plaque. Other cardiac findings: Left Atrium: The left atrium is normal size with no left atrial appendage filling defects. Left Ventricle: The ventricular cavity [...] the available limited view of the abdomen. Impression: 1. 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 2. Patent coronary vessels within the limitation of the motion artifact given the elevated heart during this exam > Interpreting Provider: Pepe Gonzalez MD on 10/25/2022 12:03 AM XR ABDOMEN KUB PORTABLE Result Date: 10/24/2022 PROCEDURE: XR ABDOMEN KUB PORTABLE, DATE/TIME OF EXAM: 10/24/2022 2:04 PM, LOCATION [facility] INDICATION: R47.1: Dysarthria ADDITIONAL CLINICAL INFORMATION: Ordering Provider ReasonFor Exam: ngt placement COMPARISON: Portable KUB dated 10/23/2022 FINDINGS/IMPRESSION: The enteric tube courses below the diaphragm with tip superimposing the gastric pyloric region. Drafted by Agnes Olmos DO (resident services coordinator). I, Vanessa Kumar MD have personally reviewed and interpreted this examination/study. > Interpreting Provider: Vanessa Kumar MD on 10/24/2022 2:17 PM MRI BRAIN WWO CONTRAST Result Date: 10/24/2022 PROCEDURE: MRI BRAIN WWO CONTRAST, DATE/TIME OF EXAM: 10/24/2022 10:56 AM, LOCATION [facility] INDICATION: I63.411: Acute cerebrovascular accident (CVA) due to embolism of right middle cerebral artery (CMS/HCC) ADDITIONAL CLINICAL INFORMATION: Ordering Provider Reason For Exam: Stroke workup Technologist Note: Does the patient have a defibrillator, pacemaker, aneurysm clips or implanted mechanical devices?->No Does the patient have metal implants or stents?->No Additional: None. EXAMINATION: Magnetic resonance imaging (MRI) of the brain without and with contrast CONTRAST: GADOBUTROL 1 MMOL/ML IV SSM SO:9.5 mL TECHNIQUE: MRI of the brain was performed prior to and following the uneventful administration of 9.5 mL intravenous GADAVIST contrast according to standard protocol. COMPARISON: CT of the head from 10/23/2022. FINDINGS: Redemonstration of postoperative changes of decompressive right hemicraniectomy with expected interval evolution of the previously seen post surgical changes along the craniectomy site. Redemonstration of extra-axial collection along the craniectomy site containing extra-axial blood products and fluid, measuring approximately 2.4 cm in thickness, (series 9, image 13), previously measured approximately 2.5 cm, grossly unchanged from prior. Interval resolution/redistribution of the previously seen foci of pneumocephalus compared to the prior CT. Interval removal of the previously seen right intracranial pressure monitor. Redemonstration of extensive cytotoxic edema in the right frontotemporoparietal regions, the right insula, and the right basal ganglia, extending along the martínez radiata and the marginally along the lateral aspect of the right centrum semiovale compatible with evolving acute right MCA territory infarction. There is persistent local mass effect on the right cerebral hemisphere with effacement of the overlayingsulci, mild external herniation of the infarcted brain through the craniectomy defect, effacement of the right lateral ventricle, and approximately 3-4 mm gjavy-zo-elbs midline shift at the level of the foramen of Monro, (series 13, image 18),, previously measured approximately 3 mm, (series 6, image 35), when remeasured, grossly similar to the prior. Extensive susceptibility artifacts along the craniectomy site compatible with expected postsurgical changes. There are additional scattered foci of restricted diffusion in the left frontoparietal region, extending along the subcortical white matter of the lateral left frontal lobe, the right martínez radiata, and the centrum semiovale, compatible with a small evolving acute to subacute infarcts. Otherwise, no new intracranial hemorrhage is identified. The ventricular caliber appears grossly stable compared to the prior. For reference, the diameter of the left ventricular trigone measures approximately 1.2 cm, (series 4, image 33), previously measured approximately 1.3 cm, (series 4, image 19). The basal cisterns are mildly effaced. The re maining ventricles are of normal size, shape, and morphology. Diffuse leptomeningeal enhancement along the right frontotemporoparietal infarcted area compatible with expected reactive changes. No enhancing lesions are otherwise identified. The corpus callosum and sella appear normal. The posterior fossa, brainstem, and craniocervical junction appear grossly stable. The visualized portions of the orbits appear grossly unremarkable. There is mild paranasal sinus disease. There is suspected minimal opacification in the right mastoid air cells. The remaining mastoid air cells appear grossly clear. Normal flow voids are demonstrated in the carotid arteries and basilar artery. The calvarium and visualized cervical spine otherwise appear normal. IMPRESSION: 1.Redemonstration of postoperative changes of a right hemicraniectomy with expected postsurgical changes as outlined above. 2.Redemonstration of evolving large right MCA territory infarction with extensive cytotoxic edema and mild external herniation of the brain through the craniectomydefect. Persistent local mass effect on the right cerebral hemisphere, effacement of the right lateral ventricle, and approximately 3-4 mm lavfg-ga-sbjh midline shift, grossly similar to the prior. 3.Mild dilation of the left lateral ventricle may represent subtle left ventricular entrapment, overall grossly similar to prior. 4.Additional multiple foci of abnormal diffusion within the left frontotemporal lobes with associated T2 FLAIR hyperintensity representing additional small acute to subacute infarcts, likely of cardioembolic etiology. Findings communicated to Dr. Mohr by Dr. Major at 1138 hours on 10/24/2022 with readback comprehension and verification. Report dictated by Tim Major MD (resident services coordinator). I, Jasper Sifuentes MD have personally reviewed and interpreted this examination/study. > Interpreting Provider: Jasper Sifuentes MD on 10/24/2022 1:59 PM XR CHEST 1VW PORTABLE Result Date: 10/24/2022 PROCEDURE: XR CHEST 1VW PORTABLE, DATE/TIME OF EXAM: 10/23/2022 8:24 AM, LOCATION [facility] INDICATION: I63.511: Right middle cerebral artery stroke (CMS/HCC) ADDITIONAL CLINICAL INFORMATION: Ordering Provider Reason For Exam: OETT position COMPARISON: Chest radiograph dated 10/21/2022 FINDINGS/IMPRESSION: The enteric tube courses below the diaphragm out of the inferior [id number]. Endotracheal tube terminates in the midthoracic trachea. There is no focal consolidation. No pleural effusion or pneumothorax. The cardiomediastinal silhouette is normal. No acute osseous abnormality. Report dictated by Agnes Olmos DO (resident services coordinator). I, Vanessa Kumar MD have personally reviewed and interpreted this examination/study. > Interpreting Provider: Vanessa Kumar MD on 10/24/2022 1:03 PM ECHO SARAH Result Date: 10/24/2022 ??? Aortic??Valve: Valve structure is normal. There is a 6 x 7 mm independently mobile mass on the left coronary cusp. Differential includes vegetation (non- bacterial thrombotic endocarditis, infective endocarditis) vs less likely fibroelastoma. ??? Left??Atrium: No right to left intracardiac or extracardiac shunt present viewable with agitated saline, color Doppler and Valsalva maneuver. Normal sized appendage. Normal appendage flow velocity. No thrombus present in the left atrial appendage (MADELEINE). ??? Left??Ventricle: Left ventricle size is normal. Hyperdynamic systolic function with a visually estimated EF of 75 - 80%. ??? No hemodynamically significant valvular abnormality. XR ABDOMEN KUB PORTABLE Result Date: 10/24/2022 PROCEDURE: XR ABDOMEN KUB PORTABLE, DATE/TIME OF EXAM: 10/23/2022 1:53 PM, LOCATION [facility] INDICATION: R47.1: Dysarthria ADDITIONAL CLINICAL INFORMATION: Ordering Provider ReasonFor Exam: NGT placement COMPARISON: Portable KUB dated 10/20/2022 FINDINGS/IMPRESSION: The enteric tube courses below the diaphragm with tip superimposing the stomach. Drafted by Agnes Olmos DO (resident services coordinator). I, Vanessa Kumar MD have personally reviewed and interpreted this examination/study. 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 EXAMINATION: Computed tomography (CT) of the head without contrast TECHNIQUE: CT of the head was performed without contrast according to standard protocol. CT dose reduction technique was used, including Automated Exposure Control. COMPARISON: Comparison is made with a CT head dated 10/22/2022. FINDINGS: Redemonstration of postoperative changes consistent of a right hemicraniectomy with underlying extra-axial blood products along the lateral cerebral convexity and small foci of pneumocephalus, slightly decreased or redistributed compared to prior. Unchanged appearance of a right intracranial pressure monitor. Extensive cytotoxic edema and mass effect in the right MCA territory with associated diffusesulci effacement and right lateral ventricle effacement grossly unchanged from prior. There is a right to left midline shift measuring up to 2 mm, stable to mildly improved from prior. No new intracranial hemorrhage or intra- or extra-axial fluid collections are identified. The ventricular morphology is stable compared to prior exams. The basal cisterns are mildly effaced. The visualized portionsof the orbits appear grossly unremarkable. Minimal opacification in the left ethmoid air cells. Theimaged mastoid air cells appear grossly clear. A presumed nasogastric tube present. Mild dilation of the left lateral ventricle likely representing mild left ventricular entrapment. Hyperdensity along the right sylvian fissure compatible with right MCA thrombosis. No acute calvarial fracture is identified. There is soft tissue edema overlying the right hemicraniectomy site and right zygomatic region are essentially unchanged from prior. IMPRESSION: 1.Redemonstration of postsurgical changes of decompressive craniectomy and evolving right middle cerebral artery territory infarct. 2.No hemorrhagic transformation. 3.Extensive cytotoxic edema and mass effect with approximately 2 mm midline shift, [place] similar or slightly improved from prior. 4.Stable right intracranial pressure monitor. The report is dictated by Miranda Bowen MD(resident services coordinator) Jasper Ornelas MD have personally reviewed and interpreted this examination/study. > Interpreting Provider: Jsaper Sifuentes MD on 10/23/2022 9:[address] HEAD WO CONTRAST Result Date: 10/22/2022 PROCEDURE: CT HEAD WO CONTRAST, DATE/TIME OF EXAM: 10/22/2022 5:35 AM, LOCATION [facility] INDICATION: I63.511: Right middle cerebral artery stroke (CMS/HCC) ADDITIONAL CLINICAL INFORMATION: Ordering Provider Reason For Exam: cerebral edema s/p hemicrani and s/p MT MCA TechnologistNote: Additional: EXAMINATION: Computed tomography (CT) of the head without contrast TECHNIQUE: CT of the head was performed without contrast according to standard protocol. COMPARISON: No prior study is available for comparison at the time of this dictation. FINDINGS: Redemonstration of post surgical changes of a right hemicraniectomy, and a right MCA infarct. Stable appearance of right intracran ial pressure monitor. There are extra-axial blood products along the right lateral cerebral convexity at the craniectomy site with associated pneumocephalus consistent with postsurgical changes. There is extensive edema and mass effect in the right MCA territory. There is sulcal effacement and effac ement of the right lateral ventricle. There is right to left midline shift measuring up to 4 mm, stable from prior There is no evidence of new acute intracranial hemorrhage. The ventricular morphology is stable compared to prior examination. The basilar cisterns are patent. The orbits appear normal. The paranasal sinuses are clear. The mastoid air cells are clear. IMPRESSION: 1.Redemonstration of postsurgical changes of decompressive right hemicraniectomy for evolving right middle cerebral artery territory infarct. There is significant edema and mass effect with approximately 4 mm of midline shift, unchanged from prior. No evidence of new acute intracranial hemorrhage. > Interpreting Provider: Lonnie Rae MD on 10/22/2022 3:[address] HEAD WO CONTRAST Result Date: 10/22/2022 PROCEDURE: CT HEAD WO CONTRAST DATE/TIME OF EXAM: 10/22/2022 2:33 PM CLINICAL INFORMATION: None relevant/not provided if blank. 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 FINDINGS: Redemonstration of post surgical changes of a right hemicraniectomy, and a right MCA infarct. Stable appearance of right intracranial pressuremonitor. There are extra-axial blood products along the right lateral cerebral convexity at the craniectomy site with associated pneumocephalus consistent with postsurgical changes. There is extensive edema and mass effect in the right MCA territory. There is sulcal effacement and effacement of theright lateral ventricle. There is right to left midline shift measuring up to 4 mm, stable from prior There is no evidence of new acute intracranial hemorrhage. The ventricular morphology is stable compared to prior examination. The basilar cisterns are patent. The orbits appear normal. The paranasal sinuses are clear. The mastoid air cells are clear. IMPRESSION: 1.Stable appearance of postsurgical changes of decompressive right hemicraniectomy for evolving right middle cerebral artery territory infarct. There is significant edema and mass effect with approximately 4 mm of midline shift, unchanged from prior. No evidence of new acute intracranial hemorrhage. Report dictated by Lorenzo Horta MD (nursing resident). Lonnie Ornelas MD have personally reviewed and interpreted this examination/study. > Interpreting Provider: Lonnie Rae MD on 10/22/2022 3:10 PM XR CHEST 1VW PORTABLE Result Date: 10/21/2022 PROCEDURE: XR CHEST 1VW PORTABLE, DATE/TIME OF EXAM: 10/21/2022 8:53 AM, LOCATION [facility] INDICATION: R53.1: Weakness ADDITIONAL CLINICAL INFORMATION: Ordering Provider Reason ForExam: post intubation COMPARISON: None. Chest radiograph FINDINGS/IMPRESSION: Lines, tubes, hardware: * An endotracheal tube seen with the tip appropriately positioned in the mid thoracic trachea. * Enteric tube is seen with its tip below the diaphragm out of the field of view. Minimal right basilar airspace opacification. Otherwise, no confluent consolidation. No pneumothorax is visible. The cardiomediastinal silhouette is normal. The visible bony thorax is intact. Report dictated by Christopher Tobin MD, MD (resident services coordinator). I, HEATHER FREGOSO MD have personally reviewed and interpreted this examination/study. > Interpreting Provider: HEATHER FREGOSO MD on 10/21/2022 5:59 PM ECHO TRANSTHORACIC W BUBBLE STUDY Result Date: 10/20/2022 ??? Left??Ventricle: Left ventricle size is normal. Normal wall thickness. Normal systolic functionwith a visually estimated EF of 60 - 65%. Normal wall motion. Normal diastolic function. ??? NormalRV size and systolic function. ??? No significant valvular abnormalities. ??? Bubble study negativefor shunt. ??? Normal IVC and visualized portion of aorta. CT HEAD WO CONTRAST Result Date: 10/20/2022 DATE/TIME OF EXAM: 10/20/2022 9:13 PM, LOCATION [facility] INDICATION: I63.411: Acute cerebrovascular accident (CVA) due to embolism of right middle cerebral artery (CMS/HCC) ADDITIONAL CLINICAL INFORMATION: Ordering Provider Reason For Exam: [facility] COMPARISON: Multiple prior studies, most recently CT head dated 10/20/2022 at 8:19 AM TECHNIQUE: CT of the head was performed withoutcontrast according to standard protocol. FINDINGS: There has been interval postsurgical changes of right hemicraniectomy for management of cerebral edema following right MCA territory infarct. A right-sided subdural drain is in place. There is redemonstration of evolving right middle cerebral artery territory infarct, with associated edema and mass effect with sulcal effacement, effacement of theright lateral ventricle, and [id number] midline shift measuring up to 4 mm and stable from prior(series 5, image 36). A catheter is seen terminating within the region of the right parietal lobe, likely representing an ICP monitor. No evidence of acute intracranial hemorrhage. The ventricular morphology is stable from prior, without evidence of obstructive hydrocephalus. The basilar cisterns are patent. The scott-white matter differentiation otherwise appears normal. The orbits appear normal.The paranasal sinuses are clear. The mastoid air cells are clear. No soft tissue abnormality is identified. IMPRESSION: Interval postsurgical changes of decompressive right hemicraniectomy with ICP monitor and subdural drain in place. 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 > Dictated by Bassam Jovel M.D. (nursing resident) I, Gonzalez Velasco, MD have personally reviewed and interpreted this examination/study. > Interpreting Provider: Gonzalez Velasco MD on 10/20/2022 11:06 PM XR ABDOMEN KUB PORTABLE Result Date: 10/20/2022 PROCEDURE: XR ABDOMEN KUB PORTABLE DATE/TIME OF EXAM: 10/20/2022 12:44 PM Indication: I63.511: Rightmiddle cerebral artery stroke (CMS/HCC) Evaluation of NG tube placement COMPARISON: None. FINDINGS/IMPRESSION: An enteric tube is seen coursing into the stomach with its tip and side-port in the gastric body. Report dictated by Royer Stovall MD (resident services coordinator). Amanda Ornelas MD have personally reviewed and interpreted this examination/study. > Interpreting Provider: Amanda Prieto MD on 10/20/2022 3:[address] HEAD NON CONTRAST Result Date: 10/20/2022 PROCEDURE: CT HEAD WO CONTRAST DATE/TIME OF EXAM: 10/20/2022 8:19 AM CLINICAL INFORMATION: None relevant/not provided if blank. Indication: R44.9: Left-sided sensory deficit present Additional History: Follow-up of acute stroke COMPARISON: Noncontrast brain CT 19 October 2022. TECHNIQUE: Noncontrast CT brain was performed utilizing standard protocol. CT dose reduction technique was used, including Automated Exposure Control. FINDINGS: There is no definite acute intracranial hemorrhage. There is alarge confluent area of decreased attenuation within the right cerebral hemisphere consistent with a large acute infarct in the distribution of the right middle cerebral artery. Mass effect is produced approximately 4 mm of midline shift right to left. There is some mild effacement of the right side of the suprasellar cistern. There is increased attenuation within the region of the right middle cerebral artery likely representing thrombus. There is some effacement of the right lateral and third ventricles due to the mass effect related to the acute infarct. The left lateral and fourth ventricles are within normal limits in size. No definite areas of abnormal attenuation within the left cerebral hemisphere. Bone window images are negative for depressed skull fracture. When comparison is made to the previous study of 19 October 2022 there has been progression of the acute infarct in the right middle cerebral artery distribution which is larger in size and with new mass effect and midlineshift. IMPRESSION: Findings consistent with a large acute area of infarction in the right cerebral hemisphere in the distribution of the right middle cerebral artery with mass effect and approximately 4 mm of midline shift right to left. There is no definite hemorrhagic transformation. There is hyperdensity of the right middle cerebral artery likely representing thrombus. Clinical correlation and continued close interval follow-up are recommended. Results discussed with the stroke team physician, Dr. Stephanie Hester, on 20 October 2022 approximately 1225 hours. > Interpreting Provider: Joni Fabian MD on 10/20/2022 12:[address] ANGIO BRAIN NECK STROKE Result Date: 10/19/2022 PROCEDURE: CT ANGIO BRAIN NECK STROKE, DATE/TIME OF EXAM: 10/19/2022 8:16 AM, LOCATION [facility] INDICATION: Code Stroke ADDITIONAL CLINICAL INFORMATION: Ordering Provider Reason For Exam: Technologist Note: Additional: EXAMINATION: 1. Computed tomographic (CT) angiography of thehead with contrast 2. CT angiography of the [...] with a study from earlier today. FINDINGS: Non-angiographicfindings: Please refer to the report of a [...] artery. A small early M2 segment is paten t. There is reconstitution of some distal right MCA branches. The left MCA is patent. The posteriorcerebral arteries are patent. The distal vertebral arteries are patent. The basilar artery is patent patent. 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 IMPRESSION: 1. [...] Lonnie Rae MD on 10/19/2022 8:[address] BRAIN - Stroke Result Date: 10/19/2022 PROCEDURE: CT BRAIN STROKE, DATE/TIME OF EXAM: 10/19/2022 8:04 AM, LOCATION [facility] INDICATION: Code Stroke ADDITIONAL CLINICAL INFORMATION: Ordering [...] of scott-white matter differentiation in the right frontotemporallobes and the right insula, concerning for an acute infarct. There is suggestion of a hyperdense right MCA likely represent acute thrombus (series 5 image 25). No acute intracranial hemorrhage or intra- or extra-axial fluid collections are identified. The ventricles are of normal size, shape, and morphology. The basal cisterns are patent. No mass effect or midline shift is seen. The scott-white mat ter differentiation is normal. The visualized portions of [...] Lonnie Rae MD on 10/19/2022 8:15 AM Right middle cerebral artery stroke (CMS/HCC) (POA: Unknown) Acute cerebrovascular accident (CVA) due to embolism of right middle cerebral artery (CMS/HCC) (POA: Yes) Nihss score 9 (POA: Yes) Received intravenous tissue plasminogen activator (tPA) in emergency department (POA: Yes) GERD (gastroesophageal reflux disease) (POA: Yes) Hemianopsia (POA: Yes) Weakness (POA: Yes) Left-sided sensory deficit present (POA: Yes) Gaze palsy (POA: Yes) Migraine (POA: Unknown) Hypertension (POA: Unknown) Presence of externally removable percutaneous endoscopic gastrostomy (PEG) tube (CMS/HCC) (POA: Unknown) Anemia (POA: Yes) Hepatocellular injury (POA: No) Assessment Consuelo Darby??is a 41 year old??female who??presented on 10/19 with Right MCA syndrome ??s/p TNK. CTA 1 M1 occlusion. S/P mechanical thrombectomy with R M1 recanalization and TICI2b. CT 10/20/22 with edema and mild shift. S/P decompressive right hemicraniectomy. Echo showed a??mobile??aortic valve vegetation.??MRI brain with scattered cortical R hemisphere infarcts with petechiae. Pt febrile and being evaluated. ID following. ?? Stroke Type:??Ischemic Stroke Mechanism:??Cardioembolic Plan TIA/Stroke Workup; active -R M1 ischemic stroke; active - s/p TICI2b revascularization, TNK - s/p decompressive hemicrani on 10/20 for malignant MCA - HbA1C: 6.0, LDL: 91, Cardiac Enzymes; wnl - atorvastatin 80 mg - Warfarin bridge with Lovenox , hold warfarin d/t plan for LP- last lovenox tonight ?? Core Measures TNK??administration: yes Anti-thrombotic: holding while on AC Statin:??atorvastatin 80mg DVT prophylaxis:??on lovenox 1mg/kg (but only going to get one dose tonight and then stop for IR intervention for LP) PEG tube ?? Migraine - holding verapamil 40 TID; no concerns for headaches currently ?? GENESIS - not currently on home amitriptyline ?? 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 - Cardiology will repeat SARAH OP setup after completing abx. ?? Fever - Blood cx still negative, - d-dimer high,??US extremities b/l UE??shows superficial thrombus in cephalic veins - ID on board. - Added flagyl 11/10 (pharmacy aware to manage warfarin with it) - CT abd shows concerns for abscess under peg and hematoma over femoral vessels underwent procedureon 11/10 - Cardiology, IR, vascular surgery, acute care surgery aware - GI consulted: ok to start feeds - ID recs continue Vanc+Doxycycline and add meropenem, stopped cefepime and flagyl. - Advised to stop vancomycin due to concerns for drug-induced fever (11/12; no fever since stopped) - ID recs LP, INR :2, called neuroradiology for LP and they need INR < 1.2 for that Leucopenia - WBC 2.7 and neutrophils 28% (not qualifying for neutropenia currently but significant drop since yesterday) - Hematology consulted - ID aware- no recs from them - Pt on prolonged antibiotic course currently ?? 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 HTN - home metop 25 mg bid ?? Transamnitis - stable transamnitis - Medicine consulted; deemed likely 2/2 cefepime induced - RUQ U/S to complete w/u, obtain CK - EBV and CMV DNA PCR - HFP qd ?? Blood Pressure Goals: SBP <160, map >70 ?? Vit D deficiency - Vit D 2,000 U daily ?? Urinary Retention - Urology following and will have outpatient trial in 1 month ?? Skin Rash: Consulted dermatology, rash improved Triamcinolone ointment ? Individual Modifiable Risk Factors Hypertension:??no Hyperlipidemia:??no Diabetes:??no Atrial Fibrillation:??no Tobacco:??no ?? Family updated this morning. ?? Case findings discussed with Dr. Antunez, Stroke Attending. Karishma Ojeda MD Neurology Resident * Donya Baig MD - 11/13/2022 2:12 PM CDT [facility] MEDICINE CONSULTATION Patient: Consuelo Darby Age: [age] year old Date of : 1980 Date of Admission: 10/19/2022 Date: 11/13/2022 Reason for consult: elevated liver enzymes Consult team: Neuro stroke HISTORY: I saw Ms. Consuelo Darby in consultation at [facility] on 11/13/2022 for evaluation of her elevated liver enzymes. She is a 42 year old female with a history of GERD, HTN who hasunderwent an extended hospitalization due to complications relating to CVA for which she initially presented on 10/19/22. Found to have Right M1 occlusion s/p TNK and mechanical thrombectomy for LVO. Course further complicated by cerebral edema and midline shift s/p right hemicraniectomy. 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 Course further complicated by right femoral and iliac arterial occlusion which was repaired by vascular surgery 10/30. Peg tube placed 11/01. Had revision of PEG with gastropexy and retention sutures due to CT scan with fluid around PEG site. Medicine was consulted for elevated liver enzymes. Also has had recurrent fevers. This morning patient was awake and interactive. Endorses improved RUQ abdominal pain. PAST MEDICAL HISTORY: Past Medical History: Diagnosis Date ??? Abdominal pain, right upper quadrant ??? GERD (gastroesophageal reflux disease) ??? History of hypertension gestational hypertension PAST SURGICAL HISTORY: Past Surgical History: Procedure Laterality Date ??? [...] N/A; ESOPHAGOGASTRODUODENOSCOPY (EGD) DIAGNOSTIC with PEG Placement FAMILY HISTORY: Family History Problem Relation Name Age of Onset ??? Cancer Maternal Grandfather Lung ??? Diabetes Maternal Grandfather ??? Diabetes Maternal Grandmother ??? Hypertension Mother ??? Thyroid Disease Mother SOCIAL HISTORY: Social History Tobacco Use ??? Smoking status: Former Packs/day: 0.50 Types: Cigarettes Quit date: 2014 Years since quittin.6 ??? Smokeless tobacco: Never Vaping Use ??? Vaping Use: Never used Substance Use Topics ??? Alcohol use: No Alcohol/week: 0.0 - 1.7 standard drinks of alcohol Comment: Occasional ??? Drug use: No ALLERGIES: Allergies Allergen Reactions ??? 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 amitriptyline (Elavil) 50 MG tablet Take 2 (two) tablets by mouth at bedtime ??? Cetirizine HCl (ZYRTEC PO) Take 10 mg by mouth once daily ??? levonorgestrel-ethinyl estradiol (LESSINA-28) 0.1-20 MG-MCG tablet TAKE 1 TABLET BY MOUTH EVERYDAY FOR CONTROL Reasons: Control Treatment 84 tablet 4 ??? metoprolol tartrate IR (Lopressor) 25 MG tablet Take 1 (one) tablet by mouth 2 times daily ??? omeprazole (PriLOSEC) 20 MG capsule Take 20 mg by mouth daily before breakfast ??? verapamil SR 24hr (Verelan) 120 MG capsule Take 1 (one) capsule by mouth at bedtime ??? Vitamin D3, cholecalciferol, 50 MCG (2000 UT) tablet Take 2,000 Units by mouth once daily CURRENT MEDICATIONS: ??? 0.9% NaCl 10-40 mL Intracatheter q8h ??? 0.9% NaCl 3 mL Intracatheter q8h ??? acetaminophen 500 mg Enteral Tube q6h ??? doxycycline monohydrate 100 mg Enteral Tube q12h ??? enoxaparin 1 mg/kg Subcutaneous q12h ??? guaiFENesin 10 mL Enteral Tube q12h ??? lansoprazole 30 mg Enteral Tube QDAY BEFORE BREAKFAST ??? loratadine 10 mg Enteral Tube QDAY ??? meropenem 2,000 mg Intravenous q8h ??? metoprolol tartrate IR 25 mg Enteral Tube q12h ??? perflutren lipid microsphere 0.5 mL Intravenous intra-Procedure multiple ??? polyethylene glycol 3350 17 g Enteral Tube BID ??? senna-docusate 2 tablet Enteral Tube QDAY ??? tamsulosin 0.4 mg Enteral Tube QDAY ??? triamcinolone acetonide Topical BID ??? verapamil 40 mg Enteral Tube q8h ??? Vitamin D3 (cholecalciferol) 2,000 Units Enteral Tube QDAY VITAL SIGNS: Temp: [97.2 ??F (36.2 ??C)-102.9 ??F (39.4 ??C)] 97.2 ??F (36.2 ??C) Pulse: [80-119] 80 Resp: [16-19] 16 BP: (100-135)/(52-70) 110/60 PHYSICAL EXAM: Gen: Awake, alert, NAD Head: post surgical edema of right head and face Eyes: Conjunctivae/corneas clear, EOMI Nose: No drainage. Resp: CTAB, no wheezes/rales/rhonchi CV: RRR, S1S2, No M/R/G Abd: PEG site clean dry and intact, no tenderness to palpation in RUQ Ext: Right groin surgical incision clean dry and intactt DATA REVIEWED: LABS: CBC: Recent Labs Component Name 11/13/22 0210 11/12/22 0532 11/11/22 1703 10/23/22 0129 10/22/22 0153 WBC 2.7* 4.8 5.0 - - HGB 9.8* 9.4* 9.9* - - HCT 30.8* 30.2* 31.9* - - MCV 91.7 92.4 93.5 - - PLT - - - - 199 - = values in this interval not displayed. Coagulation Panel: Recent Labs Component Name 11/13/22 0210 11/12/22 0532 11/11/22 2351 11/11/22 1703 11/11/22 0928 PT 17.7* 22.1* - - 16.2* INR 1.5 2.0 - - 1.3 PTT 47.9* 102.7* 78.8* - 129.8* - = values in this interval not displayed. BMP: Recent Labs Component Name 11/13/22 0210 11/12/22 0532 11/11/22 1703 NA 138 136 140 CL 107 105 108* CO2 23 21* 22 BUN 11 13 11 CREATININE 0.54* 0.59 0.56 CALCIUM 8.1* 7.8* 8.4 Recent Labs Component Name 11/13/22 0210 11/12/22 0532 11/11/22 1703 MAGNESIUM 2.2 1.7 2.0 Recent Labs Component Name 11/13/22 0210 11/12/22 0532 11/11/22 1703 PHOS 3.9 2.5* 3.3 Hepatic Panel: Recent Labs Component Name 11/13/22 0210 11/12/22 0532 11/09/22 0654 AST 195* 220* 67* ALT 286* 266* 77* ALKPHOS 77 75 73 TBILI 0.3 0.3 0.3 DBILI 0.1 0.2 0.1 IBILI 0.2 0.1 0.2 ALB 2.4* 2.5* 2.6* ABG: Recent Labs Component Name 10/30/22 1333 10/30/22 1259 10/21/22 0801 PH 7.40 7.33* 7.40 PCO2 39 49* 31* PO2 228* 208* 143* Amylase/Lipase: Invalid input(s): AMYL, LIPA Thyroid Studies: Recent Labs Component Name 11/13/22 0210 TSH 5.706* Cardiac Enzymes: No results for input(s): CKTOTAL, CKMB, TROPONINI in the last 45990 hours. Invalid input(s): CKMBINDEX Lipid Panel: Recent Labs Component Name 10/20/22 0302 LDLCALC 91 HDL 42 ASSESSMENT & PLAN: #Hepatocellular Liver Injury - mild hepatocellular injury with largely unchanged liver enzymes from yesterday - suspect most likely drug induced liver injury from beta lactam antibiotics or statin. Now improving with change of antibiotic agent. Less likely ischemic liver or budd chiari but also possible. Could also be due to non-hepatic causes of elevated AST/ALT such as rhabdomyolysis. - TSH elevated with normal T4 indicative of most likely euthyroid sick syndrome, no further workup necessary at this time Recommendations: - obtain CK level to rule out rhabdomyolysis - trend hepatic function panel daily - obtain RUQ US w/ doppler - continue to hold statin, beta lactam abx - limit tylenol to max 2g daily - obtain EBV and CMV PCR Patient seen and discussed with attending Dr. Palacios. Please note, recommendations are NOT final until attested/co-signed by the attending physician. Thank you for your consultation, please do not hesitate to contact us with any questions or concerns. Donya Baig MD [id number] Associated attestation - Isacc Palacios MD - 11/13/2022 3:20 PM CDT I have verified the documentation of the resident including all history, exam, and medical decision-making details. I have personally performed a physical exam and have personally reviewed the data to support my medical decision-making as outlined in their note. I agree with their assessment and plan other than any corrections/additions as documented below. Corrections/Additions: - Fever broke - Transaminitis essentially stable, leads to cefepime-induced - Recommend RUQ U/S to complete w/u, obtain CK - Medicine will continue to follow Date of Service: 11/13/2022 Isacc Palacios MD * Bess Triana COTA - 11/13/2022 1:[address] [facility] Occupational Therapy Splint Check Note Patient Name Consuelo Darby Date of 1980 Age [age] year old Type of Splint: Left resting hand, L foot drop Splint Issued by: Not applicable-follow up visit Splint Check Completed: No issues noted. Skin intact and splint fitting appropriately. Doffed foot drop splint for 2hrs on 2hrs off schedule. Applied TrueVue boots. L hand with increased flexor tone and curled tightly when doffing splint. Skin without signs of breakdown of need for rest break at this time so splint re-applied. RN Radha richards. Treatment Plan: Telephone Answering Service Operator education completed. and Will continue to monitor splint whilepatient in hospital. 11/13/2022 * Carmina Ahumada MD - 11/13/2022 11:15 AM CDT Plan of Care The patient has had recurrent fevers but has been afebrile since last night, and the white blood cell count remains below 10. On 10/26, vascular surgery was initially consulted for an iatrogenic vascular injury of the externaliliac artery, following right thrombectomy with bovine pericardial patch angioplasty. On 11/10, vascular surgery re-consulted due to concerns about a right groin hematoma versus abscess. The right groin incision is healing well with no overlying skin changes, purulent drainage, or fluctuance, making it unlikely to be the source of the fever. There have been no acute vascular surgery interventions. A review of the chart reveals no identified source of fever or infection. Vascular surgery will closely monitor the patient. Consider a repeat CT scan 1 week after the last one (last ) if symptoms persist. The rest of the care will be managed by the primary care team. Appreciate it. Carmina Ahumada MD General Surgery Resident, PGY1 11/13/2022 11:27 * Tia Pizarro PT - 11/13/2022 10:25 AM CDT [facility] Medicine [facility] Rehabilitation Physical Therapy Progress Note Patient: Consuelo Darby Med Record Number: [id number] Date of : 1980 Age: [age] year old Patient placed on hold for skilled PT on 11/11/22 secondary to patient taken back to OR on 11/10/22for EGD and percutaneous gastroplexy with retention sutures due to eroding gastric tube and gastriculcers, under general anesthesia. New orders received to resume skilled therapy services. No changein functional status and POC and goals remain appropriate at this time; therefore, no formal re-evaluation completed. PPE worn by staff: mask - procedural;gloves PPE worn by patient: socks - clean;gown - patient, clean Tech: Hodan Recommendations: Discharge Discharge Equipment Recommendations: To Be Determined PT Discharge Recommendations: Patient would benefit from intensive 3-hour multidisciplinary therapy This recommendation is made due to ongoing intensive PT functional needs: patient demonstrates a significant functional decline and would benefit from skilled therapy intervention to restore function;patient has the need for more than one skilled therapy service Recommended Transportation Method: Stretcher/Ambulance SUBJECTIVE: Subjective: Thank you for coming Pain Assessment: Pain Location #1 Pain Scale/Observation: Numeric (0-10) Pain Rating Score #1: 2 Sedation Level #1: 1-Awake and alert Pain Location : Abdomen Pain Orientation: Mid Pain Quality: Aching Aggravating Factors: Activity;Movement Relieved By: Rest Pain Intervention(s): Non-pharmacological Non-pharmacological interventions: Rest;Reposition;Emotional Support Behaviors/Assumed Pain Present : Calm PRECAUTIONS: Weight Bearing Status: (no restrictions) Activity Level: Up ad bigg (ambulate) Other Precautions: fall precautions OBJECTIVE: At start of therapy session, patient found in bed and with no alarm on dolphin mattress and low bedframe General Appearance: Patient is a 42 y/o female who presents for skilled PT services semi-plummer in bed on room air in no apparent distress with HLIV, G- tube to tube feeding, puentes catheter. Noted R bone flat missing. Helmet donned for upright activity. Vitals: (*Assess the 3 levels of oxygen saturations both for room air and 02 unless rest on room air is 88% or less). Rest BP: 113/67 (80) HR: 80 Sp02 98 Room Air Ex/Gait/Activity Without 02 BP: 129/74 HR: 87-95 Sp02 98 Room Air Post Activity BP: 115/68 (83) HR: 84 Sp02 98 Room Air Observations: Denies dizziness with position changes throughout session this date. No ARGUELLO noted. Mental Status/Cognition: Level of Consciousness-Adult: Alert Orientation Level: Oriented to Person;Oriented to Place Cognition: Follows Commands-Consistent;Attention/concentration-decreased;Follows one step commands;Processing-delayed;Judgement-decreased;Safety awareness- decreased;Memory impairment-short term Attention Span: Attends with cues to redirect Memory: Decreased recall of recent events;Decreased recall of precautions;Decreased short term memory Following Commands: Follows one step commands with repetition/cues Safety Judgement: Decreased awareness of need for safety Awareness of Errors: Decreased awareness of deficits;Assistance required to identify errors made;Assistance required to correct errors made Problem Solving: Assistance required to generate solutions;Assistance required to identify errors made;Assistance required to implement solutions Mobility: A gait belt and non-slip socks were used for all out of bed activity this date. Bed Mobility: Rolling: Maximal Assistance to Left Supine to Sit: Maximum Assistance;X 2;Requires Verbal Cues for Safety;Requires Verbal Cues for Technique;Requires Physical Cues for Technique (pt able to move R UE and R LE with SBA) with HOB flat Sit to Supine: Maximum Assistance;X 2;Requires Verbal Cues for Safety;Requires Verbal Cues for Technique;Requires Physical Cues for Technique Transfers: Sit to Stand: Moderate Assistance;X 2;Requires Verbal Cues for Safety;Requires Verbal Cues for Technique;Requires Physical Cues for Technique;Requires Physical Cues for Safety (in Maria Luisa Steady with R UE support and bilat knees blocked; helmet donned with all OOB mobility) Stand to Sit: Moderate Assistance;Maximum Assistance;X 2;Requires Verbal Cues for Safety;Requires Verbal Cues for Technique;Requires Physical Cues for Technique;Requires Physical Cues for Safety (from Maria Luisa Steady with R UE support and bilat knees blocked) Chair to Bed: Activity Does Not Occur Bed to Chair: Activity Does Not Occur (declined 2/2 fatigue) Gait: Weight Bearing Status: (no restrictions) Distance Ambulated: 0 FEET (static stance to tolerance x5 reps (1.5 to 3 min each rep) with wt shifting) Ambulation: Assistive Device: Gait Belt (in Maria Luisa Steady with R UE support; helmet donned) Ambulation: Level of Assistance: Moderate Assistance;Maximum Assistance;X 2;Requires Verbal Cues for Safety;Requires Verbal Cues for Technique;Requires Physical Cues for Technique Ambulation: Gait Deviations: Increased Trunk Flexion;Increased Weight Bearing through Upper Extremity;Knee Stability - Decreased during stance phase Stairs: Number: 0 (N/A at present) Balance: Balance Scales/Tests Used: Sitting: Static/Dynamic;Standing: Static/Dynamic Sitting - Static: Fair -;Fair;With Both Upper Extremity's Support (on dolphin mattress) Sitting - Dynamic: Poor +;With One Upper Extremity Support Standing - Static: Fair;With One Upper Extremity Support (with R UE support on Maria Luisa Steady and L UEmanually supported by therapist) Standing - Dynamic: Fair -;Poor +;With One Upper Extremity Support ACTIVITY TOLERANCE: Patient's activity tolerance: fair/fair- TREATMENT/INTERVENTIONS: bed mobility training, transfer training, balance activities, monitoring of vitals and education as able; sit<>stand using Maria Luisa Steady, sitting and standing balance training -- functional mobility with assist as noted above -- dep assist of 1 for donning helmet prior to any mobilization, as well as her glasses -- in supine, R LE, x 10 reps: Hip abd/add, heel slides, SAQ, ankle pumps; required varied SBA-min assistance to complete secondary to decreased force production with mod VCs and intermittent tactilecues for technique -- in supine: bridging with PT stabilizing R foot on mattress x5 reps; required min assistance to complete secondary to decreased force production with max VCs and intermittent tactile cues for technique -- static sitting balance ex/activity at EOB with L UE dep placed in supportive position and R UE actively placed in supportive position with initially mod assist of 1 person progressing to SBA/min of 1 with mod cues for correction of LOB preference posteriorly to L. -- with dynamic sitting balance activity while reaching within and slightly OOBOS for activity pt noted to require varied min-mod assist of 1 person for balance and correction of LOB to R -- Preference noted for L lateral head lean in both sitting as well as standing throughout session,but patient is able to self-correct to upright, midline position with only VCs, but does not maintain, requiring constant cues for correction. -- completed sit to/from standing at EOB with R UE support on Maria Lusia Steady and bilat knee blocking during initiation phase of stance with mod assist of 2 persons with L UE fully supported throughout for shoulder joint protection. Cues for engaging gluts and for trunk rotation anteriorly on L to correct posterior rotation preference on L, as well as head/neck alignment as above. Able to tolerate standing reps (static into lateral wt shifting) to tolerance for 1.5 min initially, progressing to 3 min each); requires seated rest break of ~3 min between reps due to fatigue; pt and family education provided during that time with focus on posture and head/trunk alignment Modified Maryann: Current Modified Maryann Score: 5 AM-PAC 6 Clicks Mobility Raw Score:: 7 EDUCATION: While performing PT, Patient was instructed in:functional mobility training, energy conservation, safety awareness/fall precautions , discharge planning, use of call light, purpose of skilled PT Presented to patient who demonstrates Poor understanding of instructions given. ASSESSMENT: Patient would benefit from additional Physical Therapy sessions to achieve the following functionalgoals to enhance independence. Short Term Goals: Goal Formation Patient unable to participate in goal formulation Patient will perform bed mobility??with moderate assist Patient will transfer bed to/from chair??with maximal assist Patient will sit EOB x10 minutes with minimal assist Environmental Marketer Goal(s): Patient to discharge to appropriate next level of inpatient care. INFORMED CONSENT TO TREATMENT: Plan of care is discussed but patient with questionable understanding. Equipment Issued: none Plan: Patient continues to benefit from skilled therapy services., Continue with goals as established. If patient is discharged from the facility, this note serves as a discharge summary if further physical therapy visits did not occur. Refer to filed flowsheet for further details. Following therapy session, patient left in bed, with bed alarm on , with call light within reach, with family in room, with RN in room, with RNRadha, with therapy cues visible on white board. * Liam Parks MD - 11/13/2022 8:36 AM CDT [facility] Infectious Diseases Progress Note Date of Admission: 10/19/2022 7:53 AM Length of Stay: Day Room: 2/ Attending: Good Antunez MD Subjective Since last seen by us, febrile,hemodynamically stable, on room air. Family at bedside, report that mental status is unchanged, not worsening, has been able to speak. Leukopenia, platelets within normal limits, stable creatinine, elevated AST and ALT, normal alkaline phosphatase and bilirubin. Review of Systems Unable to perform ROS: Mental status change Antimicrobial History Current Antibiotics Meropenem 11/12 - present Doxycycline 11/05 - present [facility] Cefazolin 10/20 Vancomycin 10/20; 10/25 - Ceftriaxone 10/25 - 11/05 Cefepime 11/05 - 11/11 Metronidazole 11/05; 11/10 - 11/12 Inpatient Medications ??? 0.9% NaCl 10-40 mL Intracatheter q8h ??? 0.9% NaCl 3 mL Intracatheter q8h ??? acetaminophen 650 mg Enteral Tube q6h ??? doxycycline monohydrate 100 mg Enteral Tube q12h ??? enoxaparin 1 mg/kg Subcutaneous q12h ??? guaiFENesin 10 mL Enteral Tube q12h ??? lansoprazole 30 mg Enteral Tube QDAY BEFORE BREAKFAST ??? loratadine 10 mg Enteral Tube QDAY ??? meropenem 2,000 mg Intravenous q8h ??? metoprolol tartrate IR 25 mg Enteral Tube q12h ??? perflutren lipid microsphere 0.5 mL Intravenous intra-Procedure multiple ??? polyethylene glycol 3350 17 g Enteral Tube BID ??? senna-docusate 2 tablet Enteral Tube QDAY ??? tamsulosin 0.4 mg Enteral Tube QDAY ??? triamcinolone acetonide Topical BID ??? verapamil 40 mg Enteral Tube q8h ??? Vitamin D3 (cholecalciferol) 2,000 Units Enteral Tube QDAY Objective Vitals BP 100/58 Pulse 88 Temp 97.8 ??F (36.6 ??C) (Axillary) Resp 16 Ht 1.626 m (5' 4 ) Wt 95.3kg (210 lb) SpO2 98% Temp (24hrs), Av ??F (37.8 ??C), Min:97.8 ??F (36.6 ??C), Max:102.9 ??F (39.4 ??C) Physical Exam Physical Exam Vitals and nursing note reviewed. Constitutional: General: She is sleeping. She is not in acute distress. Appearance: She is obese. She is not ill-appearing, toxic-appearing or diaphoretic. HENT: Head: Comments: Craniectomy surgical wound clean, no erythema or discharge Cardiovascular: Rate and Rhythm: Normal rate and regular rhythm. Pulses: Normal pulses. Heart sounds: Normal heart sounds. No murmur heard. No friction rub. No gallop. Pulmonary: Effort: No respiratory distress. Breath sounds: No wheezing, rhonchi or rales. Abdominal: General: Abdomen is flat. Bowel sounds are normal. There is no distension. Palpations: Abdomen is soft. Tenderness: There is no abdominal tenderness. Comments: Right groin surgical wound with no surrounding erythema or discharge but deep induration on palpation PEG tube present Genitourinary: Comments: Puentes present Musculoskeletal: Cervical back: Normal range of motion. No rigidity. Right lower leg: No edema. Left lower leg: No edema. Lymphadenopathy: Cervical: No cervical adenopathy. Lines: left forearm PIV, left antecubital PIV Lab Review CBC: Recent Labs Component Name 11/13/22 0210 11/12/22 0532 11/11/22 1703 10/23/22 0129 10/22/22 0153 WBC 2.7* 4.8 5.0 - - RBC 3.36* 3.27* 3.41* - - HGB 9.8* 9.4* 9.9* - - HCT 30.8* 30.2* 31.9* - - MCV 91.7 92.4 93.5 - - PLT - - - - 199 - = values in this interval not displayed. BMP: Recent Labs Component Name 11/13/22 0210 11/12/22 0532 11/11/22 1703 11/10/22 0223 11/09/22 0654 NA 138 136 140 - - CL 107 105 108* - - CO2 23 21* 22 - - BUN 11 13 11 - - CREATININE 0.54* 0.59 0.56 - - ALB 2.4* 2.5* - - 2.6* PROT 6.5 6.5 - - 7.3 - = values in this interval not displayed. estimated creatinine clearance is 155 mL/min (A) (by C-G formula based on SCr of 0.54 mg/dL (L)). LFTs: Recent Labs Component Name 11/13/22 0210 11/12/22 0532 11/09/22 0654 06/15/22 0757 12/09/18 0812 07/25/18 2056 03/01/16 0817 02/18/16 1209 07/07/13 2319 ALKPHOS 77 75 73 - 56 52 111 - 55 ALT 286* 266* 77* - 17 12* 21 - 15 AST 195* 220* 67* - 18 20 25 - 10 ALBUMIN - - - - 4.5 4.3 2.5* - 3.8 LIPASE - - - - - - - - 157 - = values in this interval not displayed. Coagulation: Recent Labs Component Name 11/13/22 0210 11/12/22 0532 11/11/22 2351 11/11/22 1703 11/11/22 0928 PT 17.7* 22.1* - - 16.2* INR 1.5 2.0 - - 1.3 PTT 47.9* 102.7* 78.8* - 129.8* - = values in this interval not displayed. Microbiology, Imaging and other diagnostic tests MICROBIOLOGY: Blood culture: 10/23 No growth 10/24 No growth 10/25 No growth 10/27 fungal blood culture in process 10/27 AFB blood culture in process 11/05 No growth 11/12 No growth Urine culture: 10/27 No growth (<100 CFU/mL) 11/05 No growth (<100 CFU/mL) Other serologies: 10/23 MRSA DNA by PCR not detected?? 10/25 HIV Antigen/Antibody 1 & 2 non-reactive 10/25 Hepatitis C Antibody non-reactive 10/27 Bartonella henselae Antibody IgM negative 10/27 Bartonella henselae Antibody IgG negative 10/27 Bartonella Species by PCR not detected 10/27 Coxiella burnetii Antibody IgG negative 10/27 Coxiella burnetii Antibody IgM negative 10/27 C Pneumoniae Antibody IgG Titer negative 10/27 Chlamydia Pneumoniae Antibody IgM Titer negative 10/27 Chlamydia trachomatis Antibody IgM Titer negative 10/27 Chlamydia psittaci Antibody IgM Titer negative 10/27 Chlamydia trachomatis Antibody IgG Titer negative 10/27 Chlamydia psittaci Antibody IgG Titer negative 10/27 Mycoplasma Antibody IgG negative 10/27 Mycoplasma Antibody IgM negative 11/02 HIV Antigen/Antibody 1 & 2 non-reactive 11/02 Hepatitis B Virus Surface Antibody reactive 11/02 Hepatitis B Virus Surface Antigen non-reactive 11/02 Hepatitis B Core Virus Antibody IgM non-reactive 11/02 Hepatitis C Antibody non-reactive 11/05 respiratory pathogen panel PCR not detected HISTOPATHOLOGY: 10/30/2022 Thrombus, right femoral, thrombectomy (A): - Thrombus IMAGING & PROCEDURES: I have independently reviewed all pertinent imaging data. Reports available in EMR. Assessment and Recommendations Fever T max of 102.9 F Patient currently admitted for large right MCA ischemic stroke As part of work up she underwent SARAH that showed aortic valve vegetation ID had been consulted for possible infective endocarditis and recommended work up for culture negative endocarditis which has been negative so far, plan was empiric ceftriaxone and doxycycline through 11/22/2022 Recently she has developed intermittent fever and antibiotics broadened to meropenem and vancomycin Multifactorial, infectious considerations include pneumonia but no there is no cough or sputum production, no oxygen requirements, chest x-ray unremarkable; urinary tract but she does not endorse dysuria, Puentes present, UA with no significant pyuria or bacteriuria, urine culture negative; line related infection, only peripheral lines, no evidence of thrombophlebitis, blood cultures have been negative; thrombosis, she does have arterial thrombosis s/p thrombectomy, would monitor for evidence of DVT At this time most concerning for -FINE HAIRER infection, MRI cannot rule out cerebritis/meningitis, needs LP -Post surgical infection, craniectomy -Post surgical infection, PEG, fluid collection seen on CT abdomen -Post surgical infection, right groin wound thrombectomy and angioplasty, fluid collection and overlying skin changes seen on CT abdomen and pelvis -Concern for drug related fever Aortic valve vegetation Possible infective endocarditis Concern for culture negative infective endocarditis SARAH done as part of ischemic stroke work up Patient was admitted as a code stroke, noted to have right MCA stroke, s/p TNK and revascularization by interventional neurology; course complicated by cerebral edema s/p right hemicraniectomy by neurosurgery?? ID consulted for IE rule out in the setting of vegetation Etiologies at this time include NBTE versus IE Extensive infectious and non-infectious work up unrevealing so far Plan to treat empirically for culture negative IE Right MCA stroke Malignant right MCA infarction s/p right decompressive hemicraniectomy Neurology and neurosurgery following No concern for craniectomy surgical site infection Right common femoral artery thrombosis s/p thrombectomy Right common femoral arteriotomy s/p bovine pericardial patch angioplasty Concern for surgical site infection in right inguinal region Vascular surgery following CT abdomen, pelvis showed progressive soft tissue stranding with gas in the right inguinal region with an inflammatory mass encasing the right femoral vessels with mild narrowing of the femoral artery and moderate narrowing of the femoral vein. Vascular surgery with low concern for infection and recommended monitoring and conservative management Dysphagia s/p PEG tube placement Fluid collection around tube insertion site Low concern for infection as per general surgery and GI s/p EGD and percutaneous gastropexy; findings concerning for erosive gastritis Renal Function estimated creatinine clearance is 155 mL/min (A) (by C-G formula based on SCr of 0.54 mg/dL (L)). Plan/Recommendations Continue meropenem 2 g IV every 8 hours Continue doxycyline 100 mg oral every 12 hours Follow repeat blood cultures Continue to recommend LP, send CSF analysis for: cell count with diff, protein, glucose, Gram stain, bacterial culture, AFB smear and culture, fungal smear and culture, meningitis/encephalitis panel Follow general surgery, vascular surgery, neurosurgery recommendations and surgical plan Follow dermatology recommendations for rash Check CBC with auto diff and CMP weekly while on IV antibiotics Thank you for allowing us to participate in the care of this patient. We will continue to follow and monitor with you closely. Patient seen, examined, and case/plan were discussed with my attending physician, Dr. Pastrana. Case discussed with primary team. Liam Parks MD ([id number]) Infectious Diseases Fellow [facility] Pager: [phone] ID Clinic Associated attestation - Gilberto Pastrana MD - 11/13/2022 5:57 PM CDT I have reviewed the record and independently examined the patient. I agree with the findings and plan of care as documented by the pet house sitter. 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 10/19- revascularization done by IR (percutaneous thrombectomy via R-femoral artery approach) 10/20- R-decompressive hemicraniectomy for refractory intracranial HTN and subagleal drain insertion 10/23- SARAH showed aortic valve vegetation. Seen by ID on 10/24 and started on treatment for possible culture negative IE. 10/30- Found to have R-femoral common femoral artery occlusion/thrombosis. Had RLE angiogram, R-iliofemoral thrombectomy and R-common femoral patch angioplasty. Assessment and Recommendations 1. Aortic valve vegetation in a patient with CVA and fever. Concerning for culture-negative endocarditis. Initially started on ceftriaxone and doxy with a plan to continue for 4 weeks (EOT 11/22). Broadening antibiotics required because of persistent fever and infections at other sites. Now on froy and doxy. - Continue antibiotics 2. Persistent fever. Cause not clear yet. Craniectomy site infection (?meningitis, cerebritis), R-groin vascular access site infection, PEG tube insertion site infection/abscess and drug-related fever are possible causes. Evaluated by vascular team for R-groin wound/hematoma. MRI brain obtained on and important to get CSF for work up. CT A/P on 11/09 showed PEG site abscess and underwent EGD but no abscess drainages done. - LP when possible - ACS eval for PEG tube site fluid collection with concern for abscess - Follow blood cultures Gilberto Pastrana MD, PhD, FIDSA * Good Antunez MD - 11/13/2022 7:46 AM CDT I have seen and examined the patient with the resident and I agree with the findings and plan of care as documented by the reisident. Date of Service: 11/13/2022 Good Antunez MD Consuelo Darby is a 42 year old F p/w M1 occlusion s/p TNK and MT and TICI2b revascularization on10/19. TTE showed mobile aortic valve vegetation. Developed MCA syndrome s/p hemicrani. 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 - Fever: consulted ID, broaden abx, Cxs. - MRI brain w/wo done (11/10): cortical enhancement along the right frontal parietal and temporal regions 2/2 infarct progression but can't rule out cerebritis or infections. ID recommends LP. -- glenis PEG fluid collection: Discussing with IR. - Urology replaced puentes (11/09-) Problem List Right middle cerebral artery stroke (CMS/HCC) (POA: Unknown) Acute cerebrovascular accident (CVA) due to embolism of right middle cerebral artery (CMS/HCC) (POA: Yes) Nihss score 9 (POA: Yes) Received intravenous tissue plasminogen activator (tPA) in emergency department (POA: Yes) GERD (gastroesophageal reflux disease) (POA: Yes) Hemianopsia (POA: Yes) Weakness (POA: Yes) Left-sided sensory deficit present (POA: Yes) Gaze palsy (POA: Yes) Migraine (POA: Unknown) Hypertension (POA: Unknown) Presence of externally removable percutaneous endoscopic gastrostomy (PEG) tube (CMS/HCC) (POA: Unknown) Anemia (POA: Yes) Hepatocellular injury (POA: No) See Resident note for the remaining problem specific plan. 25 MEDICATIONS FOR CURRENT ENCOUNTER: SCHEDULED MEDICATIONS: *Hold/Avoid warfarin (Coumadin) tablet, Other, 0800 and 2000 0.9% NaCl injection 10-40 mL, Intracatheter, q8h 0.9% NaCl injection 3 mL, Intracatheter, q8h acetaminophen (Tylenol) tablet 650 mg, Enteral Tube, q6h doxycycline monohydrate capsule 100 mg, Enteral Tube, q12h enoxaparin (Lovenox) injection 100 mg, Subcutaneous, q12h guaiFENesin (Robitussin) solution 10 mL, Enteral Tube, q12h lansoprazole (Prevacid) suspension 30 mg, Enteral Tube, QDAY BEFORE BREAKFAST loratadine (Claritin) tablet 10 mg, Enteral Tube, QDAY meropenem (Merrem) 2,000 mg in 0.9% NaCl IV 140 mL IVPB, Intravenous, q8h metoprolol tartrate IR (Lopressor) tablet 25 mg, Enteral Tube, q12h perflutren lipid microsphere (Definity) injection 0.5 mL, Intravenous, intra- Procedure multiple polyethylene glycol 3350 (Miralax) packet 17 g, Enteral Tube, BID senna-docusate (Senokot-S) tablet 2 tablet, Enteral Tube, QDAY tamsulosin (Flomax) capsule 0.4 mg, Enteral Tube, QDAY triamcinolone acetonide (Kenalog) 0.1 % ointment, Topical, BID verapamil (Isoptin) tablet 40 mg, Enteral Tube, q8h vitamin D3 (Cholecalciferol) 25 MCG (1000 UNITS) tablet 2,000 Units, Enteral Tube, QDAY [COMPLETED] magnesium sulfate 2 g in 50 mL bolus, Intravenous, Once [COMPLETED] pantoprazole (Protonix) injection 40 mg, Intravenous, QDAY [COMPLETED] potassium chloride (Klor-Con) packet 40 mEq, Enteral Tube, Once [COMPLETED] potassium chloride 40 mEq in 270 mL bolus, Intravenous, Once ?? [COMPLETED] sodium - potassium phosphates (K Phos Neutral) tablet 1 tablet, Enteral Tube, BID ?? CONTINUOUS MEDICATIONS: PRN MEDICATIONS: 0.9% NaCl injection 10-40 mL, Intravenous, PRN 0.9% NaCl injection 3 mL, Intracatheter, PRN bisacodyl (Dulcolax) suppository 10 mg, Rectal, QDAY PRN diphenhydrAMINE-zinc acetate (Benadryl Extra Strength) 2-0.1 % cream, Topical, PRN oxyCODONE (immediate release) (Roxicodone) tablet 5 mg, Enteral Tube, q6h PRN ?? throat lozenge 1 lozenge, Oral, q1h PRN Patient Vitals for the past 24 hrs: Temp Pulse Resp BP 11/13/22 0411 98.7 ??F (37.1 ??C) 92 -- 116/67 11/12/22 2355 98.5 ??F (36.9 ??C) 91 -- 101/52 11/12/22 2159 98.6 ??F (37 ??C) -- -- -- 11/12/22 193 99.1 ??F (37.3 ??C) 100 -- 111/57 11/12/22 1919 99.6 ??F (37.6 ??C) -- -- -- 11/12/22 1719 (!) 100.3 ??F (37.9 ??C) -- -- -- 11/12/22 1553 (!) 102.9 ??F (39.4 ??C) (!) 119 19 135/70 11/12/22 1347 99.8 ??F (37.7 ??C) 103 -- 100/77 11/12/22 1156 (!) 102.6 ??F (39.2 ??C) 106 17 93/70 11/12/22 1058 (!) 102.2 ??F (39 ??C) -- -- -- Recent Labs Component Name 11/13/22 0210 11/12/22 0532 11/11/22 1703 NA 138 136 140 CL 107 105 108* CO2 23 21* 22 BUN 11 13 11 CREATININE 0.54* 0.59 0.56 CALCIUM 8.1* 7.8* 8.4 PHOS 3.9 2.5* 3.3 Recent Labs Component Name 11/13/22 0210 11/12/22 0532 11/11/22 17010/23/2212810/22/22 0153 WBC 2.7* 4.8 5.0 - - RBC 3.36* 3.27* 3.41* - - HGB 9.8* 9.4* 9.9* - - HCT 30.8* 30.2* 31.9* - - PLT - - - - 199 - = values in this interval not displayed. Recent Labs Component Name 10/20/22 0302 06/15/22 0757 CHOL 173 204* TRIG 201* 251* HDL 42 37* LDLCALC 91 117* Recent Labs Component Name 10/20/22 1015 HGBA1C 6.0* EAG 126 Recent Labs Component Name 11/13/220 11/12/22 0532 11/11/22 17010/27/22202810/27/22 0054 PLTCOUNT 334 333 332 - 519* PLATELET - - - - Occasional* - = values in this interval not displayed. * Michelle Arce RN - 11/12/2022 6:31 PM CDT 1530 patient Temperature 102.4, HR 124, Tylenol administered as order, ice pack placed on patient ,extra lining removed. Neurosurgery and stroke team and rapid response informed of patient condition. * Tia Chin OT - 11/12/2022 3:[address] [facility] Occupational Therapy Splint Check Note Patient Name Consuelo Darby Date of 1980 Age [age] year old Type of Splint: L resting hand and L foot drop ?? Splint Issued by: Not applicable-follow up visit ?? Splint Check Completed: No issues noted. Skin intact and splint fitting appropriately on LLE. Pt tolerated PROM of L digits and L resting hand splint donned with no issues noted. ?? Treatment Plan: Will continue to monitor splint while patient in hospital. ?? 11/12/2022 * Case, Michelle RN - 11/12/2022 3:26 PM CDT Problem: ELOPEMENT/ABDUCTION Goal: Risk for elopement &/or abduction during hospitalization is minimized Outcome: Progressing Problem: Pain/Discomfort Goal: Patient uses pharmacological and non-pharmacological pain management strategies. Outcome: Progressing Goal: Patient verbalizes acceptable level of pain relief and ability to engage in desired activity. Outcome: Progressing Problem: Mobility Goal: Patient's mobility/activity will be maintained as optimum level for age, diagnosis and physical limitations Outcome: Progressing Goal: Continuum of care needs are further met through referral to outpatient services when appropriate. Outcome: Progressing Goal: Patient reports the ability to perform Activities of Daily Living. Outcome: Progressing Problem: Communication Impairment/Dysarthria Goal: Ability to express needs and understand communication Outcome: Progressing Problem: Nutrition Goal: Nutritional status is improving Outcome: Progressing Problem: Glycemic Control Goal: Clinical indication of glycemia balance is achieved Outcome: Progressing Problem: Knowledge Deficit,Education,Discharge Plan Goal: The patient/family will understand cerebrovascular disease and its symptoms, treatment and management Outcome: Progressing Problem: Oral Intake: Inadequate oral intake Goal: Total intake will meet estimated nutrient needs Outcome: Progressing Problem: Swallowing Goal: LTG - Patient will tolerate the least restrictive diet consistency to allow for safe consumption of daily meals Outcome: Progressing Goal: STG - Patient will participate in instrumental assessment of swallowing as appropriate Outcome: Progressing Goal: STG - Patient will tolerate therapeutic trials of recommended consistency without clincial signs and symptoms of aspiration Outcome: Progressing Goal: STG - Patient will tolerate recommended food and liquid consistencies without clinical signs and symptoms of aspiration Outcome: Progressing Goal: STG - Patient will complete swallowing exercises Outcome: Progressing Goal: STG - Patient/family will complete oral motor exercises for improved bolus control Outcome: Progressing Problem: Transfers Goal: STG - Transfer from bed to chair Outcome: Progressing Problem: Risk for Violence: Self-Directed or Other Directed Description: Diagnosis: Risk for self-directed Violence or Risk for Directed Violence Risk Factors: Biochemical/neurologic imbalances, impulsivity, manic excitement, psychotic symptomatology, rage reaction, restlessness Possibly Evidenced By: agitated behaviors, delusional thinking, hallucinations, loud/threatening/profane speech, poor impulse control, provocative behaviors, verbal threats against others, verbal threats against self Goal: Patient will verbalize control of feelings. Outcome: Progressing Goal: Patient will respond to interventions when potential or actual loss of control occurs. Outcome: Progressing Goal: Patient will refrain from provoking others to physical harm. Outcome: Progressing Goal: Patient will display nonviolent behaviors toward others in the hospital, with the aid of medications and nursing interventions. Outcome: Progressing Goal: Patient will seek help when experiencing aggressive impulses. Outcome: Progressing Goal: Patient will refrain from verbal threats and loud, profrane language toward others. Outcome: Progressing Goal: Patient will be safe and free from injury. Outcome: Progressing Problem: Skin Integrity Goal: Skin integrity is maintained or improved Outcome: Progressing Problem: Neurological Deficit Goal: Neurological status is stable or improving Outcome: Progressing * Olga Arroyo MD - 11/12/2022 12:48 PM CDT Stroke Service Daily Progress Note Consuelo Darby Age: [age] year old Date of : 1980 Date of Admission: 10/19/2022 Hospital Day: 24 Subjective Consuelo Darby is a 41yo woman hemiplegic migraine,??GERD, GENESIS. who developed acute onset L sided weakness, L-sided sensory deficits, and dysarthria. L sided weakness resolved in route and dysarthriaimproved in route. On arrival patient noted to hae L gaze plasy, L hemainopsia, mild dysarthria, and extinction. NIHSS: 7. S/p TNK and ??TICI2b revascularization of the R MCA M1 occlusion.Repeat CTH showing edema in R MCA territory. On 10/20/22 patient taken for hemicraniectomy, post-op CTH showing stable midline shift. Initial hypercoag work up negative, repeat in 2 months. ?? -10/23- SARAH concerning for aortic cusp vegetations. [...] and patch angioplasty. 10/31: CT A/P obtained 04/13 concern for abscess by GI team while evaluating her for G tube 11/01 CT A/P obtained and no abscess was identified in the abdominal area. Postsurgical changes after vascular surgery. ?? 11/02 GI to take her to OR for G tube. Ready TTF. 11/03 start warfarin bridge 11/04 CT head for headache and eye discomfort after bumping her head on hemicrani site. NSGY aware and evaluated her. CT looks stable. 11/05 had a fever. Infectious workup initiated and ID reconsulted. Plan to broaden spectrum (currently on ceftriaxone + vanc, switch to cefe + vanc + doxycycline ) after blood cultures are taken 11/06: no acute event. On heparin gtt. Warfarin bridge. INR 1.4. 9: underwent gastric erosion for abscess underlying peg by ACS ?? Interval History: Patient remained febrile. Reddish skin rash over anterior chest and lower face Objective Patient Vitals for the past 24 hrs: BP Temp Temp src Pulse Resp SpO2 11/12/22 1156 93/70 (!) 102.6 ??F (39.2 ??C) Axillary 106 17 94 % 11/12/22 1058 -- (!) 102.2 ??F (39 ??C) Axillary -- -- -- 11/12/22 0713 114/52 (!) 101.2 ??F (38.4 ??C) Oral 109 17 97 % 11/12/22 0600 -- (!) 101 ??F (38.3 ??C) Axillary -- -- -- 11/12/22 0357 -- (!) 102.6 ??F (39.2 ??C) -- -- -- -- 11/12/22 0347 122/63 (!) 102.6 ??F (39.2 ??C) Axillary (!) 111 -- 98 % 11/12/22 0023 -- 99.7 ??F (37.6 ??C) Axillary -- -- -- 11/11/22 2335 115/57 (!) 100.5 ??F (38.1 ??C) Axillary 103 -- 96 % 11/11/224 -- (!) 100.4 ??F (38 ??C) -- -- -- -- 11/11/222009 110/53 97.9 ??F (36.6 ??C) Oral 78 16 99 % 11/11/22 1918 117/63 98.3 ??F (36.8 ??C) Oral 78 16 98 % 11/11/22 1631 124/76 98.3 ??F (36.8 ??C) Oral 83 18 98 % 11/11/22 1311 123/78 98.8 ??F (37.1 ??C) Oral 84 18 96 % Intake/Output Summary (Last 24 hours) at 11/12/2022 1248 Last data filed at 11/12/2022 1015 Gross per 24 hour Intake 526 ml Output 1850 ml Net -1324 ml Exam: Cortical Function Mental Status Awake, alert, follows basic commands Orientation REYNOLD Language No verbal output Visual Powell Intact bilaterally to confrontation Neglect No visual neglect noted, no tactile neglect noted ?? Cranial Nerves II Pupils 3 mm and bilaterally reactive to light. Fundoscopic exam not performed. VIII Hearing is intact bilaterally to voice. III/IV/ Extraocular muscles intact. No diplopia, ptosis, nystagmus or convergence abnormalities noted. IX/X REYNOLD V REYNOLD XI Head turning and shoulder shrug are intact. VII L facial palsy XII Tongue is midline with normal movements and no atrophy noted. ?? Motor Function Movement No abnormalities noted Bulk No abnormalities noted Tone No abnormalities noted ?? Moves RUE and RLE 4/5 strength, tries to withdraw to pain in LUE and LLE 2/5 in left side ?? Sensory Light Touch REYNOLD Noxious Stimuli Symmetric and intact bilaterally ? Labs: Recent Labs Component Name 11/12/22 0532 11/11/22 17011/10/22 2338 10/23/22 0129 10/22/22 0153 WBC 4.8 5.0 7.1 - - RBC 3.27* 3.41* 3.22* - - HGB 9.4* 9.9* 9.5* - - HCT 30.2* 31.9* 29.7* - - PLT - - - - 199 - = values in this interval not displayed. Recent Labs Component Name 11/12/22 0532 11/11/22 17011/10/22222 NA 136 140 136 CL 105 108* 105 CO2 21* 22 24 BUN 13 11 13 CREATININE 0.59 0.56 0.52* CALCIUM 7.8* 8.4 8.4 No results for input(s): MG in the last 56337 hours. Recent Labs Component Name 11/12/22 0532 11/11/22170211/10/22222 PHOS 2.5* 3.3 3.9 Recent Labs Component Name 11/12/22 0532 11/11/22 23511/11/22170211/11/22 0928 11/10/22 2338 PT 22.1* - - 16.2* 15.6* INR 2.0 - - 1.3 1.3 PTT 102.7* 78.8* 140.8* 129.8* 36.3 No results for input(s): A1C in the last 39526 hours. Recent Labs Component Name 10/20/22 0302 06/15/22 0757 CHOL 173 204* HDL 42 37* LDLCALC 91 117* TRIG 201* 251* Recent Labs Component Name 11/06/22 0136 TSH 1.682 No results for input(s): CKMB, CKTOTAL, CKMB, TROPONINI, BNP in the last 68739 hours. MRI BRAIN WWO CONTRAST Result Date: 11/10/2022 PROCEDURE: MRI BRAIN WWO CONTRAST, DATE/TIME OF EXAM: 11/09/2022 11:51 PM, LOCATION [facility] INDICATION: R50.9: Fever, unspecified fever cause ADDITIONAL [...] enhancement along the soft tissues surrounding the extra- axial collection Redemonstration of extensive cytotoxic edema in the right frontotemporoparietal regions, the right insula, and the right basal ganglia, extending along the martínez radiata /right centrum semiovale compatible with evolving acute rightMCA territory infarction. Some of these lesions show persistent restricted diffusion including basal ganglia and the right periventricular white matter suggesting evolving infarction. There is persistent local mass effect on the right cerebral hemisphere with effacement of the overlaying sulci, mild external herniation of the infarcted brain through the craniectomy defect. Interval resolution of effacement of the right lateral ventricle and the [id number] midline shift. Extensive susceptibility artifacts along the [...] CT suggesting evolving cortical laminar necrosis. Interval resolutionof restricted diffusion along small areas of, left [...] stable. The visualized portions of the orbits appeargrossly unremarkable. No significant opacification of the paranasal or mastoid air cells.. Normal flow voids are demonstrated in the carotid arteries and basilar artery. The calvarium and visualized cervical spine otherwise appear normal. IMPRESSION: 1. Redemonstration of postsurgical changes from right decompressive hemicraniectomy andevolving large volume right MCA territory infarct as described above. Mild interval increase in thecaliber of lateral and third ventricles could be secondary to decreased mass effect, less likely hyd rocephalus, continued attention recommended on follow-up. 2. Interval [...] the extra-axial fluid collection overlying the craniectomy sitecould be secondary to evolving blood products/postsurgical changes versus secondary to superimposedinfection, clinical correlation is recommended. These findings were discussed with patient's care provider, Dr. Tucker, stroke team, by on 11/10/2022 11:59 AM with read back verification. > Interpreting Provider: Oriana Suarez MD on 11/10/2022 12:[address] ABDOMEN PELVIS W CONTRAST Result Date: 11/10/2022 PROCEDURE: CT ABDOMEN PELVIS W CONTRAST DATE/TIME OF EXAM: 11/09/2022 4:49 PM CLINICAL INFORMATION: None relevant/not provided if blank. 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 TECHNIQUE: CT of the abdomen and pelvis was performed following intravenous contrast utilizing standard protocol. CT dose reduction technique was used, including Automated Exposure Control. CONTRAST: IOPAMIDOL 76 % IV SOLN:100 mL FINDINGS: Lung bases are clear. Liver is normal. The gallbladder is absent. The spleen is normal. The pancreas is normal. There is a duodenal diverticulum. Both adrenal glands are normal. Both kidneys enhance symmetrically with no hydronephrosis. T he urinary bladder is decompressed with a Puentes catheter. Uterus is normal. A gastrostomy tube is present. There is a 2 cm rim-enhancing collection along the inferior aspect of the gastrostomy tube with small locule of gas seen on series 6 image 67 measuring 2.2 cm. There is no bowel obstruction. There is progressive soft tissue stranding with a mass in the right groin measuring 4 cm with small locules of gas, likely inflammatory mass. There is mass effect on the right femoral artery with mild narrowing as marked narrowing of the femoral vein, encased by the collection. Abdominal aorta is normal in caliber. The portal vein is patent. No suspicious osseous lytic or blastic lesion. IMPRESSION: 1. Progressive soft tissue stranding with gas in the right inguinal region with an inflammatory mass encasing the right femoral vessels with mild narrowing of the femoral artery and moderate narrowing of the femoral vein. This could represent a postsurgical hematoma. Recommend correlation with symptoms and signs of superinfection. 2. Interval placement of a gastrostomy tube with a small gas and fluid collection along the inferior aspect of the gastrostomy tube insertion site and stomach, measuring 2.2 cm. Findings communicated with Dr. Goyal at 2005 hours on 11/09/2022 > Interpreting Provider: Pepe Gonzalez MD on 11/10/2022 12:[address] ANGIO CHEST PULM EMBOLISM Result Date: 11/07/2022 PROCEDURE: CT ANGIO CHEST PULM EMBOLISM, DATE/TIME OF EXAM: 11/07/2022 5:25 PM, LOCATION [facility] INDICATION: R50.9: Fever, unspecified fever cause ADDITIONAL CLINICAL INFORMATION:Ordering Provider Reason For Exam: PE, fever COMPARISON: CT chest abdomen pelvis with contrast dated 10/25/2022. TECHNIQUE: CT of the chest was performed following the uneventful administration of 100mL of Isovue 370 intravenous contrast according to [...] suspicious pulmonary nodules are identified. No pleural fluidor pneumothorax is present. Heart and Pericardium: The cardiac chambers are normal in size. No pericardial fluid or thickening is present. There is no radiographic evidence of right heart strain. Mediastinum and Isabel: No enlarged lymph nodes are present. Bones and Chest Wall: Bone windows demonstrate no suspicious lytic or blastic lesions. The visible osseous structures are intact. Upper Abdomen:The visible portions of the upper abdominal organs are normal. Impression: 1.No evidence of acute pulmonary embolism. There is no radiographic evidence of right heart strain. 2.No other acute process within the chest. > Dictated by Tim Major MD (resident services coordinator). [employer] have personally reviewed and interpreted this examination/study. > Interpreting Provider: Alexx Lopez on 11/07/2022 10:30 PM ECHO COMPLETE Result Date: 11/07/2022 ??? Left??Ventricle: Left ventricle size is normal. EDV Index BP is 55.3 mL/m2. ESV Index BP is 18.3 mL/m2. Normal wall thickness. LVPWd is 1.01 cm. Ventricular mass is normal. Mass index 2D is 61.25g/m2. Normal systolic function with a visually estimated EF of 65 - 70%. EF by 2D Abarca biplane is 67%. Normal wall motion. Normal diastolic function. Normal mean left atrial pressure. Tissue Doppler velocity is reduced. MV peak E velocity is 102.695 cm/s. MV e' lateral velocity is 14.141 cm/s. MV e' septal velocity is 10.702 cm/s. ??? Right ventricle size is normal. Normal free wall thickness.RV wall thickness is 0.5 cm. Normal wall [...] mmHg). IVC is normal in size. SVC wasnot assessed. ??? Estimated sPAP is 23.0 mmHg. Estimated RVSP is 23.0 mmHg. RAP is 3.0 mmHg. Mean PA pressure of 15 mmHg. PVR < 1.5 Wood units. ? ? Normal valve morphology nd function. ? ? No pericardial effusion. ??? Normal sized annulus, sinus of Valsalva (aortic root), ascending aorta, aorticarch, descending aorta and abdominal aorta. Normal echocardiogram by 2D, m-mode, color and spectralDoppler echocardiography. IR INTRACRANIAL MECH THROMBECT Result Date: 11/07/2022 PROCEDURE: IR INTRACRANIAL MECH THROMBECT DATE/TIME OF EXAM: 10/19/2022 10:41 AM Procedure: CerebralAngiogram and Mechanical Thrombectomy for Acute Stroke Comparison Study: History: 41 year oldwith GERD, tobacco, p/w left sided neglect both sensory and visual, LWK 6:30, s/p TNK. CTA 1 M1 occlusion.Will take to IR for a mechanical thrombectomy. Notification Time: 8:21 NIHSS Score: 6 ASPECTS: 9 In-room: 8:48 Puncture Time: 8:53 Location of Clot: R M1 MCA Initial TICI: 0 Time to Clot: 9:37 Time to Reperfusion: 9:54 Final TICI: 2b Pit Slagman: Dr. Mitali Walter Meteorologist In Charge(s): Isak Monte Vessels: Ultrasound Guided Access of Femoral Artery Ultrasound Guided Access of Radial Artery Arterial line placement in the right radial artery Right Common Carotid Artery Angiogram: Cerebral Intracranial Catheterization Mechanical Thrombectomy with Retrievable Stent and Reperfusion Catheter Angiography Through the Existing Catheter Right Femoral Artery Angiogram Anesthesia: General Anesthesia was performed and monitored by an attending Anesthesiologist and their technical services assistant throughout the entirety of the case Procedural Detail: The risks, benefits, and alternatives to procedure were discussed in detail with the patient and her family. These included but were not limited to the risk of blood loss, vessel injury, stroke, renal injury, and contrast allergy. The patient was brought to the biplane a ngiography suite where she underwent prep and drape procedures. Limited ultrasound of the right radial artery demonstrated a patent vessel. A 5 new zealander sheath was placed in the radial artery and was used as an arterial line. Limited ultrasound of the common femoral artery demonstrated a patent vessel. The take off of the profunda and other arteries were identified. A scott scale image was documented. The right common femoral artery was accessed using a micropuncture needle. The needle entry was documented. Following a series of exchanges, a 8 Russian sheath sheath was placed in the right femoralartery. A Guide and a 6 Russian [employer] Select Serrano 2 catheter along with a stiff 0.035 Glidwirewas navigated into the aortic arch. The catheter was used to select brachiocephalic artery followedby the right common carotid artery and finally [...] then removed from the arterial system. After 5min were allowed to elapse for maximal [...] system. Hemostasis was achieved using a 8 Russian Angio-Seal closure device. Hemostasis was immediate at [...] revascularization on the MCA territory was visualized. Impression: 1. TICI2b revascularization of the R MCA M1 occlusion. Location of Clot: Right M1 segment Initial TICI: 0 Final TICI: 2b I, Dr. Jim Walter, was present and performed/supervised theentire procedure. IJim MD have personally reviewed and interpreted this examination/study. > Interpreting Provider: Jim Walter MD on 11/07/2022 9:21 AM XR ABDOMEN KUB PORTABLE Result Date: 11/06/2022 PROCEDURE: XR ABDOMEN KUB PORTABLE, DATE/TIME OF EXAM: 11/05/2022 5:28 PM, LOCATION [facility] INDICATION: R50.9: Fever, unspecified fever cause ADDITIONAL CLINICAL INFORMATION: Ordering Provider Reason For Exam: constipation Technologist Note: Additional: COMPARISON: 10/28/2022 KUBFINDINGS: PEG tube overlying left upper quadrant. Interval removal of enteric tube. There is no dilatation of small or large bowel. No pneumoperitoneum or pathological calcification is seen. The visible osseous structures are intact. The lung bases are clear. IMPRESSION: Non-obstructive bowel gas pattern. Report dictated by Mc Castro MD, (resident services coordinator). Pepe Ornelas MD have personally reviewed and interpreted this examination/study. > Interpreting Provider: Pepe Gonzalez MD on 11/06/2022 10:[address] HEAD WO CONTRAST Result Date: 11/05/2022 PROCEDURE: CT HEAD WO CONTRAST DATE/TIME OF EXAM: 11/05/2022 12:11 AM CLINICAL INFORMATION: None relevant/not provided if blank. 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 CT dose reduction technique was used, including Automated Exposure Control. FINDINGS: Redemonstration of postsurgical changes from decompressive right frontal parietotemporal craniectomy. Unchanged herniation of the right frontoparietal and temporal lobes through the craniectomydefect. Unchanged evolving large right MCA territory infarction involving the right frontal parietal and temporal lobes. 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 No significant midline shift. Unchanged ex vacuo dilation of the right lateral ventricle. There is interval increase in cortical hyperdensity involving the right parietal, frontal lobes (image 11, 12, 14, series 3). Extra-axial fluid collection overlying the herniated right cerebral convexity measuring 1.5 cm in thickness, not significantly changed compared to prior study. No interval change in the scott- white matter differentiation. No significant opacification of the mastoid or paranasal sinuses. No acute soft tissue findings or calvarial findings. IMPRESSION: 1. Redemonstration of post surgical changes from decompressive hemicraniectomy and evolving large right MCA territory subacute infarct. Interval increased linear hyperdense foci along thecortex of right frontal and parietal lobes could be secondary to evolving cortical laminar necrosisversus developing petechial hemorrhages. Continued attention recommended on short-term follow-up. However no hematoma noted. No evidence of midline shift. These findings were discussed with patient'scare provider, Dr. Roth with neurology, by on 11/05/2022 5:46 PM with read back verification. > Interpreting Provider: Oriana Suarez MD on 11/05/2022 5:48 PM XR CHEST 1VW PORTABLE Result Date: 11/05/2022 PROCEDURE: XR CHEST 1VW PORTABLE, DATE/TIME OF EXAM: 11/05/2022 9:38 AM, LOCATION [facility] INDICATION: R50.9: Fever, unspecified fever cause ADDITIONAL CLINICAL INFORMATION: Ordering Provider Reason For Exam: consolidation COMPARISON: Chest radiograph 10/29/2022. FINDINGS/IMPRESSION: Previously seen feeding tube has been removed. These no confluent consolidation, pleural effusion, or pneumothorax is noted. The cardiomediastinal silhouette is stable. No acute osseous abnormality is noted. Report dictated by Christopher Tobin MD, (resident services coordinator). I, HEATHER FREGOSO MD have personally reviewed and interpreted this examination/study. > Interpreting Provider: HEATHER FREGOSO MD on 11/05/2022 2:[address] ABDOMEN WO CONTRAST Result Date: 11/02/2022 PROCEDURE: CT ABDOMEN WO CONTRAST, DATE/TIME OF EXAM: 2022 6:47 PM, LOCATION [facility] INDICATION: Z93.1: Presence of externally removable percutaneous endoscopic gastrostomy (PEG) tube (CMS/HCC) ADDITIONAL CLINICAL INFORMATION: Ordering Provider Reason For Exam: diffcult percutaneous PEG tube placement, rule out complications COMPARISON: CT abdomen pelvis with contrast dated 10/31/2022 TECHNIQUE: CT of the chest, abdomen, and pelvis was performed without contrast according to standard protocol. Findings: Evaluation of visceral and vascular structures is degraded due tolack of intravenous contrast administration. Lines/tubes: *Interval placement of a percutaneous trudi rostomy tube with intraluminal placement of tip and [...] Bone windows demonstrate no suspicious lytic or blasticlesions. The visible osseous structures are intact. Soft tissues: Normal. Impression: Interval placement of a percutaneous gastrostomy tube with intraluminal placement of tip and inflated balloon within the body/antrum of the stomach without complication, as clinically queried.. > Dictated by Tim Major MD (resident services coordinator). I, Pepe Gonzalez MD have personallyreviewed and interpreted this examination/study. > Interpreting Provider: Pepe Gonzalez MD on 11/02/2022 1:[address] ABDOMEN PELVIS W CONTRAST Result Date: 10/31/2022 PROCEDURE: CT ABDOMEN PELVIS W CONTRAST, DATE/TIME OF EXAM: 10/31/2022 10:16 AM, LOCATION [facility] INDICATION: I33.0: Aortic valve vegetation ADDITIONAL CLINICAL INFORMATION: Ordering Provider Reason For Exam: abscess? Technologist Note: Additional: COMPARISON: CT chest abdomen and pelvis 10/25/2022. TECHNIQUE: CT of the abdomen and pelvis was performed following the uneventful administration of 100 mL of Isovue 370 intravenous contrast according to standard protocol. Findings: Lower Chest: Bibasilar subsegmental atelectasis present. Liver: Normal. Gallbladder and Bile Ducts: The gallbladder is absent. Spleen: Normal. Pancreas: Normal. Adrenals: Normal. Kidneys: Normal. Bladder: A Puentes catheter terminates within a decompressed urinary bladder. Gastrointestinal: Enteric tube terminates in the stomach. Duodenal diverticulum present. The stomach and visualized loops of large and small bowel are otherwise unremarkable. Normal appendix. Mesentery/Peritoneum/Retroperitoneum: Normal. Reproductive Organs: The uterus is normal. Vasculature: There is been interval postsurgical changes to the right common femoral/external iliac artery region with previously seen thrombus in this region no longer visualized. There is however irregularity of the distal right external iliacand proximal right common femoral artery and mild narrowing in this region likely resenting postsurgical changes. Questionable flap in the proximal common femoral artery (series 3 image 153). Bones: Bone windows demonstrate no suspicious lytic or blastic lesions. The visible osseous structures are intact. Soft tissues: There is extensive soft tissue stranding edema and fluid throughout the right groin with multiple foci of subcutaneous gas along likely represent post surgical changes. Although there is focal fluid was prominent at series 3, image 153 in this region no rim- enhancing drainable fluid collections are appreciated at this time. Impression: 1.Interval postsurgical changes to the distal right external iliac/proximal right common femoral arteries with previously seen thrombus in this region no longer visualized. There is however irregularity of the artery in this region with mild narrowing which is favored to represent postsurgical changes. Questionable flap within the proximal common femoral artery as detailed above. 2.Extensive soft tissue stranding, edema and fluid along with subcutaneous gas in the right groin likelyrepresenting postsurgical changes. Although there is focal fluid in this region, no rim-enhancing drainable fluid collections are appreciated at this time. > Interpreting Provider: Alexx Lopez on 10/31/2022 11:[address] HEAD WO CONTRAST Result Date: 10/31/2022 EXAM: CT HEAD WO CONTRAST, DATE/TIME OF EXAM: 10/30/2022 8:22 PM, LOCATION: [facility] HISTORY: I63.511: Right middle cerebral artery stroke (CMS/HCC) ADDITIONAL CLINICAL INFORMATION: Ordering Provider Reason For Exam: Heparin supratherapeutic bleed follow up. EXAMINATION: CT scan of the head without intravenous contrast TECHNIQUE: CT of the head was performed without intravenouscontrast according to standard protocol. CT dose reduction technique was used, including Automated Exposure Control. COMPARISON: Head CT 10/28/2022. Brain MRI 10/24/2022. FINDINGS: See impression. IMPRESSION: Compared to prior head CT 10/28/2022: 1.Re-demonstrated postsurgical changes of decompressive right frontoparietotemporal craniectomy with multiple overlying scalp carla. Evolving heterogeneous subdural hematoma along the right frontotemporal convexity measuring up to 8 mm in maximal thickness (5/32), previously measuring up to 9 mm in thickness. 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 Increased conspicuity of a thin hyperdensity along the cortex within this region suggestive of evolving cortical laminar necrosis. 3.Re-demonstrated small hypodensity of the left inferior frontal gyrus/frontal operculum, consistent with an evolving zrmtzody-rv-lygiaar infarct. 4.No significant midline shift. Similar-appearing size and configuration of the ventricles without evidence of hydrocephalus. Basal cisterns are patent. 5.No other convincing change. Partially imaged left nasoenteric tube. > Interpreting Provider: Amanda Real MD, PhD on 10/31/2022 1:26 AM MI GLENN Farhad ANGIO TEAM Result Date: 10/30/2022 Fluoroscopy was used for this exam in the OR. Please see the Operative report. XR CHEST 1VW PORTABLE Result Date: 10/29/2022 PROCEDURE: XR CHEST 1VW PORTABLE, DATE/TIME OF EXAM: 10/29/2022 10:29 AM, LOCATION [facility] INDICATION: R09.02: Hypoxia ADDITIONAL CLINICAL INFORMATION: Ordering Provider Reason For Exam: evaluate for hypoxia COMPARISON: Chest x-ray from 10/27/2022 FINDINGS/IMPRESSION: Enteric tube is seen coursing over the diaphragm without visualization of the distal tip. There is no focal consolidation, pleural effusion, or pneumothorax. The cardiomediastinal silhouette is normal. Report dictated by Jacques Russell DO (resident services coordinator). I, Jacques Cole DO have personally reviewed and interpreted this examination/study. 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 Report dictated by Jacques Russell DO (resident services coordinator). Jacques Ornelas DO have personally reviewed and interpreted this examination/study. 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 FINDINGS/IMPRESSION: Enteric tube courses below the diaphragm with the distal tip superimposing the antropyloric region. Report dictated by Martell Shetty MD (resident services coordinator). Jacques Ornelas DO have personally reviewed and interpreted this examination/study. > Interpreting Provider: Jacques Cole DO on 10/28/2022 12:[address] HEAD WO CONTRAST Result Date: 10/28/2022 PROCEDURE: CT HEAD WO CONTRAST, DATE/TIME OF EXAM: 10/28/2022 5:28 AM, LOCATION [facility] INDICATION: Z91.89: At high risk for bleeding after thrombolytic therapy monitor for hemorrhagic bleed given heparin use in massive stroke EXAMINATION: Computed tomography (CT) of the head without contrast TECHNIQUE: CT of the head was performed without contrast according to standard protocol. CT dose reduction technique was used, including Automated Exposure Control. COMPARISON: CT head without contrast dated 10/27/2022 FINDINGS: Redemonstrated are postoperative changes of decompressiveright frontoparietotemporal craniectomy, with multiple overlying scalp carla. Redemonstrated slightly heterogeneous subdural hemorrhage along the right frontotemporal convexity measuring 9 mm in the maximal thickness (series 3 image 17), without significant change compared to prior study. Redemonstrated evolving right MCA infarct. There is moderate mass effect on the right lateral ventricle. There is again associated mild external herniation through the craniectomy site. Unchanged gyriform hyperdensity within the infarcted area which may represent laminar necrosis. Small volume of subarachnoid hemorrhage cannot be completely ruled out. No new acute intracranial hemorrhage. The ventricles are mildly dilated compared to 10/19/2022, otherwise unchanged compared to 10/27/2022. The basal cisterns are patent. No midline shift is seen. Unchanged small focus of hypoattenuation in the left frontal lobe (series 3 image 20) likely represents a small subacute infarct. Partially visualized nasogastric tube. The visualized portions of the orbits, paranasal sinuses, and mastoids appear normal. No acute calvarial fracture is identified. IMPRESSION: 1. Evolving right MCA subacute infarct status post decompressive craniectomy. Grossly unchanged right frontotemporal subdural hemorrhage. Grossly unchanged gyriform hyperdensity in the infarcted area may represent subarachnoid hemorrhage. No midline shift. Unchanged mildly dilated ventricles may represent mild hydrocephalus. 2. Unchanged small focus of hypoattenuation in the left frontal lobe likely represents additional subacute infarct. The report is dictated by Kayla Stevenson MD (resident services coordinator) 1 ILonnie MD have personally reviewed and interpreted this examination/study. > Interpreting Provider: Lonnie Rae MD on 10/28/2022 9:15 AM XR CHEST 1VW PORTABLE Result Date: 10/27/2022 PROCEDURE: XR CHEST 1VW PORTABLE, DATE/TIME OF EXAM: 10/27/2022 10:19 AM, LOCATION [facility] INDICATION: D72.829: Leukocytosis, unspecified type ADDITIONAL CLINICAL INFORMATION: Ordering Provider Reason For Exam: any concern for pneumonia COMPARISON: Chest radiograph dated 10/25/2022. FINDINGS/IMPRESSION: Enteric tube courses below the diaphragm and out of the [id number]. RUQ surgical clips are present. No focal consolidation. No pleural effusion or pneumothorax. The cardiomediastinal silhouette is normal. Report dictated by Agnes Olmos DO (resident services coordinator). Pepe Ornelas MD have personally reviewed and interpreted this examination/study. 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 COMPARISON: 10/26/2022. FINDINGS: Redemonstration of postoperative anisha nges of decompressive right cranioplasty. An evolving extra-axial hematoma is again noted in the craniotomy site. Small volume subarachnoid hemorrhage is is again seen in the right cerebral sulci. Again noted is herniation of the intracranial contents through the craniectomy defect. Again demonstrated is an evolving subacute infarct in the nearly entire right MCA distribution, grossly unchanged. There is persistent mass effect on the lateral ventricle. A small hypoattenuating focus is again noted in the left frontal lobe, which may represent a small subacute infarct. The ventricles are stable. The basal cisterns are patent. No midline shift. The scott-white matter differentiation is normal. The visualized portions of the orbits, paranasal sinuses, and mastoids appear normal. No acute calvarial fracture is identified. IMPRESSION: 1. Redemonstration of evolving right MCA subacute infarct, status post right decompressive craniectomy. The extra-axial hematoma underlying the craniectomy site and subarachnoid hemorrhage in the right cerebral sulci are grossly unchanged. Mass effect on the right lateral ventricle is unchanged. No significant midline shift. 2. Small focus of likely a subacute infarct in the left frontal lobe is unchanged. > Interpreting Provider: Lonnie Rae MD on 10/27/2022 12:10 PM XR CHEST 1VW PORTABLE Result Date: 10/26/2022 PROCEDURE: XR CHEST 1VW PORTABLE, DATE/TIME OF EXAM: 10/25/2022 9:41 AM, LOCATION [facility] INDICATION: I63.511: Right middle cerebral artery stroke (CMS/HCC) ADDITIONAL CLINICAL INFORMATION: Ordering Provider Reason For Exam: Atlectasis/mucus plugging Comparison: Chest x-ray from10/23/2022, and CT chest, abdomen, pelvis from same day FINDINGS/IMPRESSION: Interval removal of theendotracheal tube. Enteric tube courses below the diaphragm and out of the [id number]. There is severe left rotation of the patient in this study. There is no focal consolidation, pleural effusion, or pneumothorax. The left upper lobe pulmonary nodule noted on chest CT from same day is not visualized on this plain film. The cardiomediastinal silhouette is normal. The visible bony thorax is intact. Report dictated by Royer Stovall MD (resident services coordinator). I, Alexx Lopez have personally reviewed and interpreted this examination/study. 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 COMPARISON: Comparison ismade with a CT head dated 10/25/2022. FINDINGS: Redemonstration of postoperative changes of right decompressive hemicraniectomy. Redemonstration of large volume confluent acute infarct in the right MCA territory involving the right frontal parietal temporal and insular regions and basal ganglia. Redemonstration of mild herniation of the right frontoparietal and temporal regions through the craniectomy defect. Redemonstration of a curvilinear extra-axial/extracranial fluid collection overlying the right cerebral convexity containing debris and blood products, measuring about 7 mm in thickness not significantly changed compared to prior study. Redemonstration of linear foci of hyperdensity along the evolving infarct most likely secondary to prominent vasculature. No new hyperdense foci within the evolving infarct. No evidence of transtentorial or tonsillar herniation. Station a mass effectfrom the large evolving right MCA territory infarct with effacement of sulci, and effacement of theright lateral ventricle. There is a large area of recent infarction seen in the right hemisphere inthe MCA territory with associated mass effect and some effacement of the right lateral ventricle grossly unchanged from prior. There are foci of hypoattenuation consistent with small evolving subacute to acute infarcts within the left frontal lobe periventricular white matter and left martínez radiata extending up to the left frontal subcortical regions also unchanged compared to prior study. No new intracranial hemorrhage or intra- or extra-axial fluid collections are identified. The left lateral ventricle, third and fourth ventricles are of normal size, shape, and morphology. The basal cisterns are patent. Leftward midline shift is approximately 2 mm as measured at the foramen of Monro, unchanged from yesterday. The visualized portions of the orbits, paranasal sinuses, and mastoids appearnormal. No acute calvarial fracture is identified. Partially visualized nasal tube IMPRESSION: 1. Redemonstration of evolving large right MCA territory acute to subacute infarct without definite evidence of hemorrhagic transformation. Unchanged minimal leftward midline shift of about 2 mm at the level of foramen of Monro and effacement of the left lateral ventricle. 2. Redemonstration of postsurgical changes from right-sided decompressive hemicraniectomy, unchanged compared to prior study. These results were discussed with stroke resident Dr Mendez by Dr. Miranda Bowen at8:05 AM on 10/26/2022 with read back confirmation and closed-loop communication. The report is dictated by Miranda Bowen MD (resident services coordinator) I, Oriana Suarez MD have personally reviewed and interpreted this examination/study. > Interpreting Provider: Oriana Suarez MD on 38:[address] CHEST ABDOMEN PELVIS W CONT Result Date: 10/25/2022 PROCEDURE: CT CHEST ABDOMEN PELVIS W CONT, DATE/TIME OF EXAM: 10/25/2022 12:56 PM, LOCATION [facility] INDICATION: I63.511: Right middle cerebral artery stroke [...] Neck and Axillae: Normal. Lungs: Subsegmental atelectasis ofthe posterior lungs. No pleural fluid or pneumothorax is present. There is a 3 mm nodule in the left upper lobe (image 47 series 5). Heart and Pericardium: The cardiac chambers are normal in size. Nopericardial fluid or thickening is present. Mediastinum and [...] groin. Subcutaneous gas in the lower left anteriorabdominal wall related to subcutaneous injections. Impression: 1.Occlusion [...] verification. > Dictated by Clarisa Cantrell MD (resident services coordinator). I, Alexx Lopez have personally reviewed and interpreted this examination/study. 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 COMPARISON: Comparison is made with brain MR [address] head dated 10/23/2022 FINDINGS: There are postoperative ch anges of right hemicraniectomy. There is soft tissue thickening and skin carla overlying the operative defect. There is curvilinear fluid collection collection overlying the right cerebral convexity within the craniectomy defect containing some recent blood products and which measures approximately 22 mm in maximum thickness. There is a large area of recent infarction in the right cerebral hemisphere in the distribution in the distribution of the right middle cerebral artery. Mass effect is produced by this. There is a small amount of midline shift right to left of roughly 2 mm at the levelof the foramen of Monro. There is some compression of the right lateral ventricle. The left lateral ventricle, third, and fourth ventricles are normal in size. There are foci of decreased attenuationconsistent with small recent infarcts within the left frontal lobe and left martínez radiata. Bone window images demonstrate no signal suspicious lytic or blastic lesions. When today's study is compared to the parenchyma of 24 October [address] 23 October, there may be slightly less mass effectand midline shift on today's study and the fluid collection within the craniectomy defect overlyingthe lateral right cerebral hemisphere is slightly smaller. There has been interval removal of the drainage tube that was present within the craniectomy defect on previous brain CT and there is less ai r/gas within the operative defect relative to the previous brain CT. IMPRESSION: Redemonstrated postoperative changes consistent with right calvarial hemicraniectomy. Fluid collection overlying the lateral right cerebral hemisphere within the craniectomy defect containing some recent blood products. The overall size of this fluid collection is less than on previous study. In addition, there is less air/gas within this defect. Evolving large recent right cerebral hemisphere infarct with mass effect and approximately 2 mm of midline shift right to left. There appears to be slightly less mass effect and midline shift on today's study. Continued follow-up is recommended. Small recent cortical infarct in the lateral left frontal lobe as well as small recent infarc t in left martínez radiata which appears similar to previous study. Clinical correlation recommended.The report is dictated by Miranda Bowen MD (resident services coordinator) I, Joni Fabian MD have personally reviewed and interpreted this examination/study. > Interpreting Provider: Joni Fabian MD on 10/25/2022 2:[address] CARDIAC ANGIO STRUCT MORPH Result Date: 10/25/2022 PROCEDURE: CT CARDIAC ANGIO STRUCT MORPH, DATE/TIME OF EXAM: 10/23/2022 3:08 PM, LOCATION [facility] INDICATION: I63.411: Acute cerebrovascular accident (CVA) due to embolism of right middle cerebral artery (CMS/HCC) ADDITIONAL CLINICAL INFORMATION: Ordering Provider Reason For Exam: L atrial valve vegetations Technologist Note: Additional: COMPARISON: None. Procedure: CT structure and morphology with intravenous contrast material, including 3D image post-processing Acquisitionmode: Retrospective ECG gated. Contrast type and volume:Isovue .100 mL. Complications: None.. Imagequality: Good signal noise. There is motion artifact Heart rate: 99 bpm. Coronaries: The coronary arteries are not completely visualized due to motion artifact given the increase heart rate. Within the limitations, coronary arteries are normal in course and morphology and patent without calcification or plaque. Other cardiac findings: Left Atrium: The left atrium is normal size with no left atrial appendage filling defects. Left Ventricle: The ventricular cavity [...] the available limited view of the abdomen. Impression: 1. 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 2. Patent coronary vessels within the limitation of the motion artifact given the elevated heart during this exam > Interpreting Provider: Pepe Gonzalez MD on 10/25/2022 12:03 AM XR ABDOMEN KUB PORTABLE Result Date: 10/24/2022 PROCEDURE: XR ABDOMEN KUB PORTABLE, DATE/TIME OF EXAM: 10/24/2022 2:04 PM, LOCATION [facility] INDICATION: R47.1: Dysarthria ADDITIONAL CLINICAL INFORMATION: Ordering Provider ReasonFor Exam: ngt placement COMPARISON: Portable KUB dated 10/23/2022 FINDINGS/IMPRESSION: The enteric tube courses below the diaphragm with tip superimposing the gastric pyloric region. Drafted by Agnes Olmos DO (resident services coordinator). I, Vanessa Kumar MD have personally reviewed and interpreted this examination/study. > Interpreting Provider: Vanessa Kumar MD on 10/24/2022 2:17 PM MRI BRAIN WWO CONTRAST Result Date: 10/24/2022 PROCEDURE: MRI BRAIN WWO CONTRAST, DATE/TIME OF EXAM: 10/24/2022 10:56 AM, LOCATION [facility] INDICATION: I63.411: Acute cerebrovascular accident (CVA) due to embolism of right middle cerebral artery (CMS/HCC) ADDITIONAL CLINICAL INFORMATION: Ordering Provider Reason For Exam: Stroke workup Technologist Note: Does the patient have a defibrillator, pacemaker, aneurysm clips or implanted mechanical devices?->No Does the patient have metal implants or stents?->No Additional: None. EXAMINATION: Magnetic resonance imaging (MRI) of the brain without and with contrast CONTRAST: GADOBUTROL 1 MMOL/ML IV SSM SO:9.5 mL TECHNIQUE: MRI of the brain was performed prior to and following the uneventful administration of 9.5 mL intravenous GADAVIST contrast according to standard protocol. COMPARISON: CT of the head from 10/23/2022. FINDINGS: Redemonstration of postoperative changes of decompressive right hemicraniectomy with expected interval evolution of the previously seen post surgical changes along the craniectomy site. Redemonstration of extra-axial collection along the craniectomy site containing extra-axial blood products and fluid, measuring approximately 2.4 cm in thickness, (series 9, image 13), previously measured approximately 2.5 cm, grossly unchanged from prior. Interval resolution/redistribution of the previously seen foci of pneumocephalus compared to the prior CT. Interval removal of the previously seen right intracranial pressure monitor. Redemonstration of extensive cytotoxic edema in the right frontotemporoparietal regions, the right insula, and the right basal ganglia, extending along the martínez radiata and the marginally along the lateral aspect of the right centrum semiovale compatible with evolving acute right MCA territory infarction. There is persistent local mass effect on the right cerebral hemisphere with effacement of the overlayingsulci, mild external herniation of the infarcted brain through the craniectomy defect, effacement of the right lateral ventricle, and approximately 3-4 mm [id number]-ww-[id number] midline shift at the level of the foramen of Monro, (series 13, image 18),, previously measured approximately 3 mm, (series 6, image 35), when remeasured, grossly similar to the prior. Extensive susceptibility artifacts along the craniectomy site compatible with expected postsurgical changes. There are additional scattered foci of restricted diffusion in the left frontoparietal region, extending along the subcortical white matter of the lateral left frontal lobe, the right martínez radiata, and the centrum semiovale, compatible with a small evolving acute to subacute infarcts. Otherwise, no new intracranial hemorrhage is identified. The ventricular caliber appears grossly stable compared to the prior. For reference, the diameter of the left ventricular trigone measures approximately 1.2 cm, (series 4, image 33), previously measured approximately 1.3 cm, (series 4, image 19). The basal cisterns are mildly effaced. The re maining ventricles are of normal size, shape, and morphology. Diffuse leptomeningeal enhancement along the right frontotemporoparietal infarcted area compatible with expected reactive changes. No enhancing lesions are otherwise identified. The corpus callosum and sella appear normal. The posterior fossa, brainstem, and craniocervical junction appear grossly stable. The visualized portions of the orbits appear grossly unremarkable. There is mild paranasal sinus disease. There is suspected minimal opacification in the right mastoid air cells. The remaining mastoid air cells appear grossly clear. Normal flow voids are demonstrated in the carotid arteries and basilar artery. The calvarium and visualized cervical spine otherwise appear normal. IMPRESSION: 1.Redemonstration of postoperative changes of a right hemicraniectomy with expected postsurgical changes as outlined above. 2.Redemonstration of evolving large right MCA territory infarction with extensive cytotoxic edema and mild external herniation of the brain through the craniectomydefect. Persistent local mass effect on the right cerebral hemisphere, effacement of the right lateral ventricle, and approximately 3-4 mm ltrts-tl-lnaf midline shift, grossly similar to the prior. 3.Mild dilation of the left lateral ventricle may represent subtle left ventricular entrapment, overall grossly similar to prior. 4.Additional multiple foci of abnormal diffusion within the left frontotemporal lobes with associated T2 FLAIR hyperintensity representing additional small acute to subacute infarcts, likely of cardioembolic etiology. Findings communicated to Dr. Mohr by Dr. Major at 1138 hours on 10/24/2022 with readback comprehension and verification. Report dictated by Tim Major MD (resident services coordinator). IJasper MD have personally reviewed and interpreted this examination/study. > Interpreting Provider: Jasper Sifuentes MD on 10/24/2022 1:59 PM XR CHEST 1VW PORTABLE Result Date: 10/24/2022 PROCEDURE: XR CHEST 1VW PORTABLE, DATE/TIME OF EXAM: 10/23/2022 8:24 AM, LOCATION [facility] INDICATION: I63.511: Right middle cerebral artery stroke (CMS/HCC) ADDITIONAL CLINICAL INFORMATION: Ordering Provider Reason For Exam: OETT position COMPARISON: Chest radiograph dated 10/21/2022 FINDINGS/IMPRESSION: The enteric tube courses below the diaphragm out of the inferior [id number]-dw-lrvu. Endotracheal tube terminates in the midthoracic trachea. There is no focal consolidation. No pleural effusion or pneumothorax. The cardiomediastinal silhouette is normal. No acute osseous abnormality. Report dictated by Agnes Olmos DO (resident services coordinator). Vanessa Ornelas MD have personally reviewed and interpreted this examination/study. > Interpreting Provider: Vanessa Kumar MD on 10/24/2022 1:03 PM ECHO SARAH Result Date: 10/24/2022 ??? Aortic??Valve: Valve structure is normal. There is a 6 x 7 mm independently mobile mass on the left coronary cusp. Differential includes vegetation (non- bacterial thrombotic endocarditis, infective endocarditis) vs less likely fibroelastoma. ??? Left??Atrium: No right to left intracardiac or extracardiac shunt present viewable with agitated saline, color Doppler and Valsalva maneuver. Normal sized appendage. Normal appendage flow velocity. No thrombus present in the left atrial appendage (MADELEINE). ??? Left??Ventricle: Left ventricle size is normal. Hyperdynamic systolic function with a visually estimated EF of 75 - 80%. ??? No hemodynamically significant valvular abnormality. XR ABDOMEN KUB PORTABLE Result Date: 10/24/2022 PROCEDURE: XR ABDOMEN KUB PORTABLE, DATE/TIME OF EXAM: 10/23/2022 1:53 PM, LOCATION [facility] INDICATION: R47.1: Dysarthria ADDITIONAL CLINICAL INFORMATION: Ordering Provider ReasonFor Exam: NGT placement COMPARISON: Portable KUB dated 10/20/2022 FINDINGS/IMPRESSION: The enteric tube courses below the diaphragm with tip superimposing the stomach. Drafted by Agnes Olmos DO (resident services coordinator). I, Vanessa Kumar MD have personally reviewed and interpreted this examination/study. 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 EXAMINATION: Computed tomography (CT) of the head without contrast TECHNIQUE: CT of the head was performed without contrast according to standard protocol. CT dose reduction technique was used, including Automated Exposure Control. COMPARISON: Comparison is made with a CT head dated 10/22/2022. FINDINGS: Redemonstration of postoperative changes consistent of a right hemicraniectomy with underlying extra-axial blood products along the lateral cerebral convexity and small foci of pneumocephalus, slightly decreased or redistributed compared to prior. Unchanged appearance of a right intracranial pressure monitor. Extensive cytotoxic edema and mass effect in the right MCA territory with associated diffusesulci effacement and right lateral ventricle effacement grossly unchanged from prior. There is a right to left midline shift measuring up to 2 mm, stable to mildly improved from prior. No new intracranial hemorrhage or intra- or extra-axial fluid collections are identified. The ventricular morphology is stable compared to prior exams. The basal cisterns are mildly effaced. The visualized portionsof the orbits appear grossly unremarkable. Minimal opacification in the left ethmoid air cells. Theimaged mastoid air cells appear grossly clear. A presumed nasogastric tube present. Mild dilation of the left lateral ventricle likely representing mild left ventricular entrapment. Hyperdensity along the right sylvian fissure compatible with right MCA thrombosis. No acute calvarial fracture is identified. There is soft tissue edema overlying the right hemicraniectomy site and right zygomatic region are essentially unchanged from prior. IMPRESSION: 1.Redemonstration of postsurgical changes of decompressive craniectomy and evolving right middle cerebral artery territory infarct. 2.No hemorrhagic transformation. 3.Extensive cytotoxic edema and mass effect with approximately 2 mm midline shift, [place] similar or slightly improved from prior. 4.Stable right intracranial pressure monitor. The report is dictated by Miranda Bowen MD(resident services coordinator) I, Jasper Sifuentes MD have personally reviewed and interpreted this examination/study. 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 COMPARISON: No prior study is available for comparison at the time of this dictation. FINDINGS: Redemonstration of post surgical changes of a right hemicraniectomy, and a right MCA infarct. Stable appearance of right intracran ial pressure monitor. There are extra-axial blood products along the right lateral cerebral convexity at the craniectomy site with associated pneumocephalus consistent with postsurgical changes. There is extensive edema and mass effect in the right MCA territory. There is sulcal effacement and effac ement of the right lateral ventricle. There is right to left midline shift measuring up to 4 mm, stable from prior There is no evidence of new acute intracranial hemorrhage. The ventricular morphology is stable compared to prior examination. The basilar cisterns are patent. The orbits appear normal. The paranasal sinuses are clear. The mastoid air cells are clear. IMPRESSION: 1.Redemonstration of postsurgical changes of decompressive right hemicraniectomy for evolving right middle cerebral artery territory infarct. There is significant edema and mass effect with approximately 4 mm of midline shift, unchanged from prior. No evidence of new acute intracranial hemorrhage. > Interpreting Provider: Lonnie Rae MD on 10/22/2022 3:[address] HEAD WO CONTRAST Result Date: 10/22/2022 PROCEDURE: CT HEAD WO CONTRAST DATE/TIME OF EXAM: 10/22/2022 2:33 PM CLINICAL INFORMATION: None relevant/not provided if blank. 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 FINDINGS: Redemonstration of post surgical changes of a right hemicraniectomy, and a right MCA infarct. Stable appearance of right intracranial pressuremonitor. There are extra-axial blood products along the right lateral cerebral convexity at the craniectomy site with associated pneumocephalus consistent with postsurgical changes. There is extensive edema and mass effect in the right MCA territory. There is sulcal effacement and effacement of theright lateral ventricle. There is right to left midline shift measuring up to 4 mm, stable from prior There is no evidence of new acute intracranial hemorrhage. The ventricular morphology is stable compared to prior examination. The basilar cisterns are patent. The orbits appear normal. The paranasal sinuses are clear. The mastoid air cells are clear. IMPRESSION: 1.Stable appearance of postsurgical changes of decompressive right hemicraniectomy for evolving right middle cerebral artery territory infarct. There is significant edema and mass effect with approximately 4 mm of midline shift, unchanged from prior. No evidence of new acute intracranial hemorrhage. Report dictated by Lorenzo Horta MD (nursing resident). I, Lonnie Rae MD have personally reviewed and interpreted this examination/study. > Interpreting Provider: Lonnie Rae MD on 10/22/2022 3:10 PM XR CHEST 1VW PORTABLE Result Date: 10/21/2022 PROCEDURE: XR CHEST 1VW PORTABLE, DATE/TIME OF EXAM: 10/21/2022 8:53 AM, LOCATION [facility] INDICATION: R53.1: Weakness ADDITIONAL CLINICAL INFORMATION: Ordering Provider Reason ForExam: post intubation COMPARISON: None. Chest radiograph FINDINGS/IMPRESSION: Lines, tubes, hardware: * An endotracheal tube seen with the tip appropriately positioned in the mid thoracic trachea. * Enteric tube is seen with its tip below the diaphragm out of the field of view. Minimal right basilar airspace opacification. Otherwise, no confluent consolidation. No pneumothorax is visible. The cardiomediastinal silhouette is normal. The visible bony thorax is intact. Report dictated by Christopher Tobin MD, MD (resident services coordinator). I, HEATHER FREGOSO MD have personally reviewed and interpreted this examination/study. > Interpreting Provider: HEATHER FREGOSO MD on 10/21/2022 5:59 PM ECHO TRANSTHORACIC W BUBBLE STUDY Result Date: 10/20/2022 ??? Left??Ventricle: Left ventricle size is normal. Normal wall thickness. Normal systolic functionwith a visually estimated EF of 60 - 65%. Normal wall motion. Normal diastolic function. ??? NormalRV size and systolic function. ??? No significant valvular abnormalities. ??? Bubble study negativefor shunt. ??? Normal IVC and visualized portion of aorta. CT HEAD WO CONTRAST Result Date: 10/20/2022 DATE/TIME OF EXAM: 10/20/2022 9:13 PM, LOCATION [facility] INDICATION: I63.411: Acute cerebrovascular accident (CVA) due to embolism of right middle cerebral artery (CMS/HCC) ADDITIONAL CLINICAL INFORMATION: Ordering Provider Reason For Exam: [facility] COMPARISON: Multiple prior studies, most recently CT head dated 10/20/2022 at 8:19 AM TECHNIQUE: CT of the head was performed withoutcontrast according to standard protocol. FINDINGS: There has been interval postsurgical changes of right hemicraniectomy for management of cerebral edema following right MCA territory infarct. A right-sided subdural drain is in place. There is redemonstration of evolving right middle cerebral artery territory infarct, with associated edema and mass effect with sulcal effacement, effacement of theright lateral ventricle, and bhycu-cc-izal midline shift measuring up to 4 mm and stable from prior(series 5, image 36). A catheter is seen terminating within the region of the right parietal lobe, likely representing an ICP monitor. No evidence of acute intracranial hemorrhage. The ventricular morphology is stable from prior, without evidence of obstructive hydrocephalus. The basilar cisterns are patent. The scott-white matter differentiation otherwise appears normal. The orbits appear normal.The paranasal sinuses are clear. The mastoid air cells are clear. No soft tissue abnormality is identified. IMPRESSION: Interval postsurgical changes of decompressive right hemicraniectomy with ICP monitor and subdural drain in place. 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 > Dictated by Bassam Jovel M.D. (nursing resident) Gonzalez Ornelas MD have personally reviewed and interpreted this examination/study. > Interpreting Provider: Gonzalez Velasco MD on 10/20/2022 11:06 PM XR ABDOMEN KUB PORTABLE Result Date: 10/20/2022 PROCEDURE: XR ABDOMEN KUB PORTABLE DATE/TIME OF EXAM: 10/20/2022 12:44 PM Indication: I63.511: Rightmiddle cerebral artery stroke (CMS/HCC) Evaluation of NG tube placement COMPARISON: None. FINDINGS/IMPRESSION: An enteric tube is seen coursing into the stomach with its tip and side-port in the gastric body. Report dictated by Royer Stovall MD (resident services coordinator). Amanda Ornelas MD have personally reviewed and interpreted this examination/study. > Interpreting Provider: Amanda Prieto MD on 10/20/2022 3:[address] HEAD NON CONTRAST Result Date: 10/20/2022 PROCEDURE: CT HEAD WO CONTRAST DATE/TIME OF EXAM: 10/20/2022 8:19 AM CLINICAL INFORMATION: None relevant/not provided if blank. Indication: R44.9: Left-sided sensory deficit present Additional History: Follow-up of acute stroke COMPARISON: Noncontrast brain CT 19 October 2022. TECHNIQUE: Noncontrast CT brain was performed utilizing standard protocol. CT dose reduction technique was used, including Automated Exposure Control. FINDINGS: There is no definite acute intracranial hemorrhage. There is alarge confluent area of decreased attenuation within the right cerebral hemisphere consistent with a large acute infarct in the distribution of the right middle cerebral artery. Mass effect is produced approximately 4 mm of midline shift right to left. There is some mild effacement of the right side of the suprasellar cistern. There is increased attenuation within the region of the right middle cerebral artery likely representing thrombus. There is some effacement of the right lateral and third ventricles due to the mass effect related to the acute infarct. The left lateral and fourth ventricles are within normal limits in size. No definite areas of abnormal attenuation within the left cerebral hemisphere. Bone window images are negative for depressed skull fracture. When comparison is made to the previous study of 19 October 2022 there has been progression of the acute infarct in the right middle cerebral artery distribution which is larger in size and with new mass effect and midlineshift. IMPRESSION: Findings consistent with a large acute area of infarction in the right cerebral hemisphere in the distribution of the right middle cerebral artery with mass effect and approximately 4 mm of midline shift right to left. There is no definite hemorrhagic transformation. There is hyperdensity of the right middle cerebral artery likely representing thrombus. Clinical correlation and continued close interval follow-up are recommended. Results discussed with the stroke team physician, Dr. Stephanie Hester, on 20 October 2022 approximately 1225 hours. > Interpreting Provider: Joni Fabian MD on 10/20/2022 12:[address] ANGIO BRAIN NECK STROKE Result Date: 10/19/2022 PROCEDURE: CT ANGIO BRAIN NECK STROKE, DATE/TIME OF EXAM: 10/19/2022 8:16 AM, LOCATION [facility] INDICATION: Code Stroke ADDITIONAL CLINICAL INFORMATION: Ordering Provider Reason For Exam: Technologist Note: Additional: EXAMINATION: 1. Computed tomographic (CT) angiography of the head with contrast 2. CT angiography of the neck with contrast TECHNIQUE: CT angiography of the headand neck was obtained after the uneventful administration [...] a concurrent noncontrasted head CT for detailed intracranialfindings including findings suggesting an acute right MCA [...] arteries are patent. The basilar artery is patentpatent. 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 IMPRESSION: 1. [...] Lonnie Rae MD on 10/19/2022 8:[address] BRAIN - Stroke Result Date: 10/19/2022 PROCEDURE: CT BRAIN STROKE, DATE/TIME OF EXAM: 10/19/2022 8:04 AM, LOCATION [facility] INDICATION: Code Stroke ADDITIONAL CLINICAL INFORMATION: Ordering [...] of scott-white matter differentiation in the right frontotemporallobes and the right insula, concerning for an acute infarct. There is suggestion of a hyperdense right MCA likely represent acute thrombus (series 5 image 25). No acute intracranial hemorrhage or intra- or extra-axial fluid collections are identified. The ventricles are of normal size, shape, and morphology. The basal cisterns are patent. No mass effect or midline shift is seen. The scott-white mat ter differentiation is normal. The visualized portions of [...] Lonnie Rae MD on 10/19/2022 8:15 AM Right middle cerebral artery stroke (CMS/HCC) (POA: Unknown) Acute cerebrovascular accident (CVA) due to embolism of right middle cerebral artery (CMS/HCC) (POA: Yes) Nihss score 9 (POA: Yes) Received intravenous tissue plasminogen activator (tPA) in emergency department (POA: Yes) GERD (gastroesophageal reflux disease) (POA: Yes) Hemianopsia (POA: Yes) Weakness (POA: Yes) Left-sided sensory deficit present (POA: Yes) Gaze palsy (POA: Yes) Migraine (POA: Unknown) Hypertension (POA: Unknown) Presence of externally removable percutaneous endoscopic gastrostomy (PEG) tube (CMS/HCC) (POA: Unknown) Assessment Consuelo R Mehnaz??is a 41 year old??female who??presented on 10/19 with Right MCA syndrome ??s/p TNK. CTA 1 M1 occlusion. S/P mechanical thrombectomy with R M1 recanalization and TICI2b. CT 10/20/22 with edema and mild shift. S/P decompressive right hemicraniectomy. Echo showed a??mobile??aortic valve vegetation.??MRI brain with scattered cortical R hemisphere infarcts with petechiae. Pt febrile and being evaluated. ID following. ?? Stroke Type:??Ischemic Stroke Mechanism:??Cardioembolic Plan TIA/Stroke Workup; active -R M1 ischemic stroke; active - s/p TICI2b revascularization, TNK - s/p decompressive hemicrani on 10/20 for malignant MCA - HbA1C: 6.0, LDL: 91, Cardiac Enzymes; wnl - atorvastatin 80 mg - Warfarin bridge with Lovenox , hold warfarin d/t plan for LP ?? Core Measures TNK??administration: yes Anti-thrombotic: holding while on AC Statin:??atorvastatin 80mg DVT prophylaxis:??heparin gtt + warfarin bridge PEG tube ?? Migraine - verapamil 40 TID ?? GENESIS - cont home amitriptyline ?? 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 - Cardiology will repeat SARAH OP setup after completing abx. ?? Fever - Blood cx still negative, - d-dimer high,??US extremities b/l UE??shows superficial thrombus in cephalic veins - ID on board. - Added flagyl 11/10 (pharmacy aware to manage warfarin with it) - CT abd shows concerns for abscess under peg and hematoma over femoral vessels underwent procedureon 11/10 - Cardiology, IR, vascular surgery, acute care surgery aware - GI consulted: ok to start feeds - ID recs continue Vanc+Doxycycline and add meropenem, stopped cefepime and flagyl. - ID recs LP, INR :2, called neuroradiology. ? 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 HTN - home metop Transamnitis - AST 266, AST 220 - Medicine consulted ?? Blood Pressure Goals: SBP <160, map >70 ?? Vit D deficiency - Vit D 2,000 U daily Failed void trial - Urology following and will have outpatient trial in 1 month Skin Rash: Consulted dermatology, F/u recs ? Individual Modifiable Risk Factors Hypertension:??no Hyperlipidemia:??no Diabetes:??no Atrial Fibrillation:??no Tobacco:??no ?? Family updated this morning. ?? Case findings discussed with Dr. Antunez, Stroke Attending. Olga Arroyo MD Neurology Resident * Lang Espinoza RN - 11/12/2022 10:14 AM CDT Rn attempt an Iv with no success. Rapid nurse called and will follow up with Rn. * Michelle Arce RN - 11/12/2022 9:50 AM CDT Patient 08:30 Meropenem IV medication was not administered as scheduled, Patient have 2 PIVs And she is currently getting several other IV medications . RN tried to get another PIV, same failed, charge nurse and attending physician informed. Rapid response team asked to assist with getting a third PIV * Good Antunez MD - 11/12/2022 8:34 AM CDT I have seen and examined the patient with the resident and I agree with the findings and plan of care as documented by the reisident. Date of Service: 11/12/2022 Good Antunez MD Consuelo Darby is a 42 year old F p/w M1 occlusion s/p TNK and MT and TICI2b revascularization on10/19. TTE showed mobile aortic valve vegetation. Developed MCA syndrome s/p hemicrani. 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 - Fever: consulted ID, broaden abx, Cxs. - MRI brain w/wo done (11/10): cortical enhancement along the right frontal parietal and temporal regions 2/2 infarct progression but can't rule out cerebritis or infections. Will discuss with ID. - CT chest, abdomen and pelvis with contrast: -- glenis PEG fluid collection: Discussing with IR. -- possible post procedure hematoma- vascular surgery will re-evaluate. - On warfarin bridge now (INR 1.8): given pelvic hematoma will discuss AC with cardiology and vascular surgery - Urology replaced puentes (11/09-) - Ddimer was high: w/u -ve for DVT or PE - Constipation; BM regimen Problem List Right middle cerebral artery stroke (CMS/HCC) (POA: Unknown) Acute cerebrovascular accident (CVA) due to embolism of right middle cerebral artery (CMS/HCC) (POA: Yes) Nihss score 9 (POA: Yes) Received intravenous tissue plasminogen activator (tPA) in emergency department (POA: Yes) GERD (gastroesophageal reflux disease) (POA: Yes) Hemianopsia (POA: Yes) Weakness (POA: Yes) Left-sided sensory deficit present (POA: Yes) Gaze palsy (POA: Yes) Migraine (POA: Unknown) Hypertension (POA: Unknown) Presence of externally removable percutaneous endoscopic gastrostomy (PEG) tube (CMS/HCC) (POA: Unknown) See Resident note for the remaining problem specific plan. 24 MEDICATIONS FOR CURRENT ENCOUNTER: SCHEDULED MEDICATIONS: 0.9% NaCl injection 10-40 mL, Intracatheter, q8h 0.9% NaCl injection 3 mL, Intracatheter, q8h acetaminophen (Tylenol) tablet 650 mg, Enteral Tube, q6h atorvastatin (Lipitor) tablet 80 mg, Enteral Tube, AT BEDTIME doxycycline monohydrate capsule 100 mg, Enteral Tube, q12h guaiFENesin (Robitussin) solution 10 mL, Enteral Tube, q12h loratadine (Claritin) tablet 10 mg, Enteral Tube, QDAY magnesium sulfate 2 g in 50 mL bolus, Intravenous, Once meropenem (Merrem) 2,000 mg in 0.9% NaCl IV 140 mL IVPB, Intravenous, q8h metoprolol tartrate IR (Lopressor) tablet 25 mg, Enteral Tube, q12h pantoprazole (Protonix) injection 40 mg, Intravenous, QDAY perflutren lipid microsphere (Definity) injection 0.5 mL, Intravenous, intra- Procedure multiple polyethylene glycol 3350 (Miralax) packet 17 g, Enteral Tube, BID potassium chloride (Klor-Con) packet 40 mEq, Enteral Tube, Once potassium chloride 40 mEq in 270 mL bolus, Intravenous, Once senna-docusate (Senokot-S) tablet 2 tablet, Enteral Tube, QDAY sodium - potassium phosphates (K Phos Neutral) tablet 1 tablet, Enteral Tube, BID tamsulosin (Flomax) capsule 0.4 mg, Enteral Tube, QDAY vancomycin (Vancocin) 1,500 mg in 500 mL NaCl IVPB Premix, Intravenous, q8h vancomycin (Vancocin) IV dose per pharmacy, Does not apply, DIRECTED verapamil (Isoptin) tablet 40 mg, Enteral Tube, q8h vitamin D3 (Cholecalciferol) 25 MCG (1000 UNITS) tablet 2,000 Units, Enteral Tube, QDAY warfarin (Coumadin) dose per pharmacy, Other, QDay 1700 warfarin (Coumadin) tablet 3 mg, Enteral Tube, once warfarin [COMPLETED] warfarin (Coumadin) tablet 5 mg, Enteral Tube, once warfarin [] gadobutrol (Gadavist) injection, Intravenous, Contrast - Once [] iopamidol (Isovue 370) 76 % contrast, Intravenous, Contrast - Once ?? [START ON 11/13/2022] lansoprazole (Prevacid) suspension 30 mg, Enteral Tube, QDAY BEFORE BREAKFAST CONTINUOUS MEDICATIONS: ?? heparin 100 units/mL in dextrose 5 % infusion, Intravenous, Continuous PRN MEDICATIONS: 0.9% NaCl injection 10-40 mL, Intravenous, PRN 0.9% NaCl injection 3 mL, Intracatheter, PRN bisacodyl (Dulcolax) suppository 10 mg, Rectal, QDAY PRN diphenhydrAMINE-zinc acetate (Benadryl Extra Strength) 2-0.1 % cream, Topical, PRN oxyCODONE (immediate release) (Roxicodone) tablet 5 mg, Enteral Tube, q6h PRN ?? throat lozenge 1 lozenge, Oral, q1h PRN Patient Vitals for the past 24 hrs: Temp Pulse Resp BP 11/12/22 0600 (!) 101 ??F (38.3 ??C) -- -- -- 11/12/22 0357 (!) 102.6 ??F (39.2 ??C) -- -- -- 11/12/22 0347 (!) 102.6 ??F (39.2 ??C) (!) 111 -- 122/63 11/12/22 0023 99.7 ??F (37.6 ??C) -- -- -- 11/11/22 2335 (!) 100.5 ??F (38.1 ??C) 103 -- 115/57 11/11/22 2224 (!) 100.4 ??F (38 ??C) -- -- -- 11/11/222009 97.9 ??F (36.6 ??C) 78 16 110/53 11/11/22 1918 98.3 ??F (36.8 ??C) 78 16 117/63 11/11/22 1631 98.3 ??F (36.8 ??C) 83 18 124/76 11/11/22 1311 98.8 ??F (37.1 ??C) 84 18 123/78 Recent Labs Component Name 11/12/22 0532 11/11/22 1703 11/10/22 0223 NA 136 140 136 CL 105 108* 105 CO2 21* 22 24 BUN 13 11 13 CREATININE 0.59 0.56 0.52* CALCIUM 7.8* 8.4 8.4 PHOS 2.5* 3.3 3.9 Recent Labs Component Name 11/12/22 0532 11/11/22 17011/10/228 10/23/22 0129 10/22/22 0153 WBC 4.8 5.0 7.1 - - RBC 3.27* 3.41* 3.22* - - HGB 9.4* 9.9* 9.5* - - HCT 30.2* 31.9* 29.7* - - PLT - - - - 199 - = values in this interval not displayed. Recent Labs Component Name 10/20/22 0302 06/15/22 0757 CHOL 173 204* TRIG 201* 251* HDL 42 37* LDLCALC 91 117* Recent Labs Component Name 10/20/22 1015 HGBA1C 6.0* EAG 126 Recent Labs Component Name 11/12/22 0532 11/11/22 1703 11/10/22 2338 10/27/22202810/27/22 0054 PLTCOUNT 333 332 297 - 519* PLATELET - - - - Occasional* - = values in this interval not displayed. * Angelica Cruz MD - 11/12/2022 7:47 AM CDT [facility] Infectious Diseases Progress Note Admitted on: 10/19/2022 7:53 AM Hospital stay: Room: 522/01 Attending: Good Antunez MD Reason for ID consultation: Aortic valve vegetation, infective endocarditis rule out Brief History and Hospital Course: 41 year old??female??with PMH of HTN, migraine, GERD, presented on??10/19/2022??as code stroke due to acute onset left sided weakness, left sided sensory deficits, and dysarthria. Found to have rightMCA occulusion.??On empirical culture negative infective endocarditis treatment per ID recommendatio n: doxycycline 100 mg oral q12h and ceftriaxone 2 g IV q24h, duration for 4 weeks EOT 11/22/2022; and can stop vancomycin IV once blood cultures are finalized nor MRSA growth. ID sign off on 10/27/2022. But patient continues on IV vancomycin, and never started doxycyline. 11/05/2022 - present: ID was called back for fever. Ceftriaxone was escalated to cefepime, ID recommended to continue vancomycin and doxycycline , and repeat TTE to evaluate the size of vegetation. TTE was done on 11/06,normal valve morphology and function. As fever persistent, ID recommended to obtain MRI Brain and CT A/P w contrast for source work up, which were done on 11/09. SUBJECTIVE & INTERVAL HISTORY: Spiking fever, Tmax 102.9. Elevated ALT and AST. Noted rash to face and trunk. Inpatient Medications ??? 0.9% NaCl 10-40 mL Intracatheter q8h ??? 0.9% NaCl 3 mL Intracatheter q8h ??? acetaminophen 650 mg Enteral Tube q6h ??? atorvastatin 80 mg Enteral Tube AT BEDTIME ??? cefepime 2 g Intravenous q8h ??? doxycycline monohydrate 100 mg Enteral Tube q12h ??? guaiFENesin 10 mL Enteral Tube q12h ??? loratadine 10 mg Enteral Tube QDAY ??? magnesium sulfate 2 g Intravenous Once ??? metoprolol tartrate IR 25 mg Enteral Tube q12h ??? metroNIDAZOLE 500 mg Intravenous q8h ??? naloxone 0.04 mg Intravenous post-OP multiple ??? pantoprazole 40 mg Intravenous QDAY ??? perflutren lipid microsphere 0.5 mL Intravenous intra-Procedure multiple ??? polyethylene glycol 3350 17 g Enteral Tube BID ??? potassium chloride 40 mEq Enteral Tube Once ??? potassium chloride 40 mEq Intravenous Once ??? senna-docusate 2 tablet Enteral Tube QDAY ??? sodium - potassium phosphates 1 tablet Oral BID ??? tamsulosin 0.4 mg Enteral Tube QDAY ??? vancomycin 1,500 mg Intravenous q8h ??? vancomycin (VANCOCIN) IV dose per pharmacy Does not apply DIRECTED ??? verapamil 40 mg Enteral Tube q8h ??? Vitamin D3 (cholecalciferol) 2,000 Units Enteral Tube QDAY ??? warfarin Other QDay 1700 ??? warfarin 3 mg Enteral Tube once warfarin heparin, 850-2,150 Units/hr, Last Rate: 1,050 Units/hr (11/11/22 1800) PRN Medications ??? 0.9% NaCl ??? SALINE LOCK, INSERT AND MAINTAIN AND 0.9% NaCl AND 0.9% NaCl ??? bisacodyl ??? diphenhydrAMINE ??? diphenhydrAMINE-zinc acetate ??? fentaNYL (PF) ??? fentaNYL (PF) ??? HYDROmorphone ??? metoclopramide ??? oxyCODONE (immediate release) ??? prochlorperazine ??? throat lozenge OBJECTIVE: Vital Signs: BP 122/63 Pulse (!) 111 Temp (!) 101 ??F (38.3 ??C) (Axillary) Resp 16 Ht 1.626 m (5' 4 ) Wt 95.3 kg (210 lb) SpO2 98% Temp (24hrs), Av ??F (37.8 ??C), Min:97.9 ??F (36.6 ??C), Max:102.6 ??F (39.2 ??C) I/O: Intake/Output Summary (Last 24 hours) at 11/12/2022 0748 Last data filed at 11/12/2022 0529 Gross per 24 hour Intake 1526 ml Output 2550 ml Net -1024 ml Physical Exam: General: Awake, nonverbal HEENT: Craniectomy incision healed with skipped scabs, no active drainage. Anicteric sclerae Neck: +Trach Chest wall: No tenderness or deformity Lungs: Clear to auscultation bilaterally Heart: Tachycardic, S1, S2, no murmur Abdomen: Soft, non-distended, RUE tenderness, +PEG tube Extremities: No b/l leg edema, right grain surgical incision mild swelling Skin: Erythematous rash on neck, trunk and extremities Neurologic: Follow commands Lines: PIVs Puentes LABS CBC: Recent Labs Component Name 11/12/22 0532 11/11/22 1703 11/10/22 2338 10/23/22 0129 10/22/22 0153 WBC 4.8 5.0 7.1 - - RBC 3.27* 3.41* 3.22* - - HGB 9.4* 9.9* 9.5* - - HCT 30.2* 31.9* 29.7* - - MCV 92.4 93.5 92.2 - - PLT - - - - 199 - = values in this interval not displayed. BMP: Recent Labs Component Name 11/12/22 0532 11/11/22 1703 11/10/22 0223 11/09/22 0654 10/20/22 0302 10/19/22 0824 NA 136 140 136 - - 139 CL 105 108* 105 - - 108* CO2 21* 22 24 - - 21* BUN 13 11 13 - - 13 CREATININE 0.59 0.56 0.52* - - 0.84 ALB 2.5* - - 2.6* - 3.5 PROT 6.5 - - 7.3 - 7.7 - = values in this interval not displayed. estimated creatinine clearance is 141.9 mL/min (by C-G formula based on SCr of 0.59 mg/dL). Recent Labs Component Name 11/12/22 0532 11/09/22 0654 10/19/22 0824 ALT 266* 77* 16 AST 220* 67* 19 ALKPHOS 75 73 52 TBILI 0.3 0.3 0.1* MICROBIOLOGY: Blood culture 10/23/2022: x 2 No growth day 5 10/24/2022: x 2 No growth day 5 10/25/2022: x 1 No growth day 5 11/05/2022: x 1 No growth day 5 11/12/2022: x 1 in process Fungal blood culture 10/27/2022: No fungus isolated AFB blood culture 10/27/2022: No fungus isolated Urine culture 10/27/2022: No growth (<100 CFU/mL) 11/05/2022: No growth (<100 CFU/mL) MRSA DNA by PCR 10/23/2022: Not detected RESPIRATORY PANEL WITH SARS-COV-2 BY PCR (STL 11/05/2022: Not detected HISTOPATHOLOGY: Final Diagnosis (10/30/2022) Thrombus, right femoral, thrombectomy (A): - Thrombus IMAGING & PROCEDURE: CT ABDOMEN PELVIS W CONTRAST (11/09/2022): 1. Progressive soft tissue stranding with gas in the right inguinal region with an inflammatory mass encasing the right femoral vessels with mild narrowing of the femoral artery and moderate narrowing of the femoral vein. This could represent a postsurgical hematoma. Recommend correlation with symptoms and signs of superinfection. 2. Interval placement of a gastrostomy tube with a small gas and fluid collection along the inferior aspect of the gastrostomy tube insertion site and stomach, measuring 2.2 cm. MRI BRAIN WWO CONTRAST (11/09/2022): 1. Redemonstration of postsurgical changes from right decompressive hemicraniectomy and evolving large volume right MCA territory infarct as described above. Mild interval increase in the caliber of lateral and third ventricles could be secondary to decreased mass effect, less likely hydrocephalus, continued attention recommended on follow-up. ?? 2. Interval resolution of midline shift compared to prior MRI. Interval increased linear susceptibility along the medial margin of the infarction at the periventricular white matter could be secondary to hemosiderin deposition/petechial hemorrhages. ?? 3. Significant interval increase in the cortical [...] of evolving subacute infarction versus developing cerebritis. ?? 4. There is also interval increase restricted diffusion in the extra-axial fluid collection overlying the craniectomy site could be secondary to evolving blood products/postsurgical changes versus secondary to superimposed infection, clinical correlation is recommended. ?? These findings were discussed with patient's care provider, Dr. Tucker, stroke team, by on 11/10/2022 11:59 AM with read back verification. ASSESSMENT & RECOMMENDATIONS: 41 year old??female??with PMH of HTN, migraine, GERD, presented on??10/19/2022??as code stroke due to acute onset left sided weakness, left sided sensory deficits, and dysarthria. Found to have rightMCA occulusion.??On empirical culture negative infective endocarditis treatment. Called back for new fever. ?? 1. Persistent fever since 11/03/2022: ??? BCx and UCx NG; no diarrhea, no CVC line. ??? Source now concerning from (1) post craniectomy??site infection that may extend intracranially (see #2); (2) PEG tube complication with an abscess inferior to the PEG tube (was placed 11/01), see#3; (3) Right groin postsurgical hematoma, vs abscess also concerning, see #4; (4) New rash over the last 1-2 days, with abnormal LFT, DRESS? dermatology consulted. ??? Discontinue IV vancomycin, cefepime and metronidazole; start meropenem; continue doxycycline. 2. Concerning for craniectomy??site infection with intracranial extension: ??? Evidence on 11/09 MRI Brain, superimposed cerebritis/meningitis cannot be excluded. ??? Discussed with neurology again for LP with CSF analysis to eval of FINE HAIRER infection, neurosurgery initially had less suspicion of FINE HAIRER infection, LP was deferred. Discussed again today. ??? On empiric Abx 3. Abscess inferior to the PEG tube: ??? 11/09 CT A/P w contrast showing an abscess inferior to the PEG tube (PEG was placed 11/01). Underwent OR EGD with [facility], found small erosion behind gastric bumper without signs of gastric perforation.Please call [facility] for abscess I&D and management. ??? Started metronidazole. Continue cefepime and IV vancomycin. ??? Follow further plan from [facility]. 4. Right groin progressive postsurgical hematoma, vs abscess: ??? Revealed on 11/09 CT A/P w contrast. ??? Vascular surgery thought no signs of infection, no intervention for now. Plan call back given persistent fever. 5. Elevated ALT and AST: Obtain liver US. Medicine or Hepatology consult. 6. New rash: with abnormal LFT, DRESS? dermatology consulted. 7. Aortic valve vegetation, negative blood culture, concerning for culture negative infective endocarditis: ??? SARAH 10/23 revealing a 6 x 7 mm independently mobile mass on the left coronary cusp AV. DDx: IE,vs Libman-Sacks endocarditis, vs fibroelastoma, vs rheumatic valvular disease (less likely), vs Lambl excrescence (less likely). ??? Serology??testing for Coxiella, Bartonella, Mycoplasma and??Chlamydia for possible culture negative endocarditis, all negative. ??? Empiric antibiotics started 10/25 to cover at least Staphylococcus and Streptococcus, and atypical bacterial infection, but doxycycline was not started until 11/05. ??? TTE was repeated 11/06, normal valve morphology and function. ??? Will keep the plan for 4 weeks treatment: now on meropenem (10/25 - EOT 11/22), doxycyline (11/05 - EOT 12/03). ?? 6. Cardio-embolic/ischemic stroke: ??? Unusual presentation for this 41-year-old patient with no significant risk factors for CVA. DDxhypercoagulable state, autoimmune disorder, etc. ??? S/p 10/19 with IR underwent diagnostic??catheter??cerebral??angiogram??and revascularization ofright MCA occlusion. ??? S/p 10/20 with neurosurgery for R sided??[id number]??decompressive sonya-craniectomy??for??treatment of??refractory intracranial hypertension. 7. Renal function: Estimated Creatinine Clearance: 141.9 mL/min (by C-G formula based on SCr of 0.59 mg/dL). ?? Plan/Recommendations: - Discontinue IV vancomycin, cefepime and metronidazole; start meropenem 2 g IV q8h; continue doxycycline 100 mg q12h. - Follow blood cultures - Send sputum culture. - Neurosurgery consult to review the MRI Brain image. - LP unless contraindicated, send CSF analysis for: Cell count with diff, protein, glucose, Gram's stain, bacterial culture, AFB smear and culture, fungal smear and culture; meningitis/encephalitis panel. - Please call Vascular Surgery back to re-eval of right groin hematoma, vs absces - Obtain liver US. Medicine or Hepatology consult. - Follow dermatology consult for rash. We will continue to follow and monitor the patient. Thank you for allowing us to participate in thecare of this patient. Please call with any questions or concerns. Plan discussed with neurology. >35 minutes spent on the care of this patient. > 50% was spent in counseling and coordinationof care that included the patient and the primay team. Angelica Cruz M.D. Infectious Diseases Pager [phone] * Ventura Zendejas Jr., PharmD - 11/12/2022 7:10 AM CDT ACTIVE CONSULTS TO PHARMACY Pharmacy Consult: Warfarin Management ASSESSMENT/PLAN Warfarin Indication for anticoagulation: ischemic stroke due to septic emboli; MT c/b R iliac and common femoral artery occlusion s/p thrombectomy. Warfarin schedule prior to this encounter: New start Warfarin Dose History Date INR Dose (mg) Comments 11/03 1.2 5 mg New start with heparin bridge 11/04 1.1 5 mg 11/05 1.3 5 mg 11/06 1.4 5 mg 11/07 1.6 5 mg Changed to therapeutic enoxaparin bridge 11/08 1.6 6 mg 11/09 1.6 6 mg 11/10 1.8 1.3 (post Kcentra) --- Dosing held and reversed with 4-PCC ~22 units/kg dose to go to OR for exlap 11/11 1.3 5 mg Hep gtt started and warfarin restarted 11/12 2.0 3 mg INR response may be due to residual impact of previous warfarin and now drug interactions notes below; and/or less lasting impact of 4PCC with dosing on lower end of unit/kg Goal INR: 2.0 - 3.0 Today's INR: Therapeutic at 2.0 Pertinent medications during hospitalization: On board spectrum abx - cefepime, doxycycline, metronidazole, vancomycin which all may increase warfarin concentrations directly (metronidazole - may reduce warfarin needs 20-30%) and indirectly Plan: 1. Warfarin dose: 3 mg X 1 -- will reduce to response seen and potential impact of drug interactions above. Impact of warfarin bridge period due to Kcentra reversal is variable 2. Daily INR 3. Bridging therapy with heparin drip - would continue for at least 24 h addtl to ensure INR > 2.0 4. Warfarin education completed on 11/06. Ventura Zendejas Jr., PharmD Subjective/Objective Consuelo Darby is a 42 year old female. The primary encounter diagnosis was Right middle cerebralartery stroke (CMS/HCC). Diagnoses of Weakness, Gaze palsy, Hemianopsia, Left-sided sensory deficitpresent, Dysarthria, At high risk for bleeding after thrombolytic therapy, Acute cerebrovascular accident (CVA) due to embolism of right middle cerebral artery (CMS/HCC), Nihss score 9, Aortic valve vegetation, Occlusion of external iliac artery (CMS/HCC), Cold extremity without peripheral vasculardisease, Acute lower limb ischemia, Leukocytosis, unspecified type, Received intravenous tissue plasminogen activator (tPA) in emergency department, Hypoxia, Ischemia, Primary hypertension, Iliac artery occlusion, right (CMS/HCC), Presence of externally removable percutaneous endoscopic gastrostomy(PEG) tube (CMS/HCC), and Fever, unspecified fever cause were also pertinent to this visit. Height: 5' 4 (162.6 cm) Wt 95.3 kg (210 lb) Body mass index is 36.05 kg/m??. Serum creatinine: 0.59 mg/dL 11/12/22 0532 Estimated creatinine clearance: 141.9 mL/min * Sindhu Sam MD - 11/12/2022 7:04 AM CDT [facility] Plan of Care - OK for medications per g-tube. - Can continue tube feeds per PEG. Please follow nutrition service recommendations. - Continue abx to treatment for emperic treatment for perigastric fluid collection for a total of 5days. - Continue Protonix 40mg - Please page ACS for any additional concerns regarding PEG tube or for concern for dislodgement. - Remainder of care per primary team -ACS to sign off Sindhu Sam MD PGY-1 ?? * Ventura Zendejas Jr., PharmD - 11/11/2022 2:17 PM CDT ACTIVE CONSULTS TO PHARMACY Pharmacy Consult: Warfarin Management ASSESSMENT/PLAN Warfarin Indication for anticoagulation: ischemic stroke due to septic emboli; MT c/b R iliac and common femoral artery occlusion s/p thrombectomy. Warfarin schedule prior to this encounter: New start Warfarin Dose History Date INR Dose (mg) Comments 11/03 1.2 5 mg New start with heparin bridge 11/04 1.1 5 mg 11/05 1.3 5 mg 11/06 1.4 5 mg 11/07 1.6 5 mg Changed to therapeutic enoxaparin bridge 11/08 1.6 6 mg 11/09 1.6 6 mg 11/10 1.8 1.3 (post Kcentra) --- Dosing held and reversed with 4-PCC ~22 units/kg dose to go to OR for exlap 11/11 1.3 Hep gtt started and warfarin restarted Goal INR: 2.0 - 3.0 Today's INR: Subtherapeutic at 1.3 given reversal above Pertinent medications during hospitalization: On board spectrum abx - cefepime, doxycycline, metronidazole, vancomycin which all may increase warfarin concentrations directly (metronidazole - may reduce warfarin needs 20-30%) and indirectly Plan: 1. Warfarin dose: 5 mg X 1 -- will restart at reduced dosing compared to previous (6 mg /day) due to metronidazole/abx interaction. Impact of warfarin bridge period due to Kcentra reversal is variable 2. Daily INR 3. Bridging therapy with heparin drip 4. Warfarin education completed on 11/06. Ventura Zendejas Jr., PharmD Subjective/Objective Consuelo Darby is a 42 year old female. The primary encounter diagnosis was Right middle cerebralartery stroke (CMS/HCC). Diagnoses of Weakness, Gaze palsy, Hemianopsia, Left-sided sensory deficitpresent, Dysarthria, At high risk for bleeding after thrombolytic therapy, Acute cerebrovascular accident (CVA) due to embolism of right middle cerebral artery (CMS/HCC), Nihss score 9, Aortic valve vegetation, Occlusion of external iliac artery (CMS/HCC), Cold extremity without peripheral vasculardisease, Acute lower limb ischemia, Leukocytosis, unspecified type, Received intravenous tissue plasminogen activator (tPA) in emergency department, Hypoxia, Ischemia, Primary hypertension, Iliac artery occlusion, right (CMS/HCC), Presence of externally removable percutaneous endoscopic gastrostomy(PEG) tube (CMS/HCC), and Fever, unspecified fever cause were also pertinent to this visit. Height: 5' 4 (162.6 cm) Wt 95.3 kg (210 lb) Body mass index is 36.05 kg/m??. Serum creatinine: 0.52 mg/dL (L) 11/10/22 0223 Estimated creatinine clearance: 161 mL/min (A) * Karishma Ojeda MD - 11/11/2022 1:48 PM CDT Stroke Service Daily Progress Note Consuelo Darby Age: [age] year old Date of : 1980 Date of Admission: 10/19/2022 Hospital Day: 23 Subjective Consuelo Darby is a 41yo woman hemiplegic migraine,??GERD, GENESIS. who developed acute onset L sided weakness, L-sided sensory deficits, and dysarthria. L sided weakness resolved in route and dysarthriaimproved in route. On arrival patient noted to hae L gaze plasy, L hemainopsia, mild dysarthria, and extinction. NIHSS: 7. S/p TNK and ??TICI2b revascularization of the R MCA M1 occlusion.Repeat CTH showing edema in R MCA territory. On 10/20/22 patient taken for hemicraniectomy, post-op CTH showing stable midline shift. Initial hypercoag work up negative, repeat in 2 months. ?? -10/23- SARAH concerning for aortic cusp vegetations. [...] and patch angioplasty. 10/31: CT A/P obtained 04/13 concern for abscess by GI team while evaluating her for G tube 11/01 CT A/P obtained and no abscess was identified in the abdominal area. Postsurgical changes after vascular surgery. ?? 11/02 GI to take her to OR for G tube. Ready TTF. 11/03 start warfarin bridge 11/04 CT head for headache and eye discomfort after bumping her head on hemicrani site. NSGY aware and evaluated her. CT looks stable. 11/05 had a fever. Infectious workup initiated and ID reconsulted. Plan to broaden spectrum (currently on ceftriaxone + vanc, switch to cefe + vanc + doxycycline ) after blood cultures are taken 11/06: no acute event. On heparin gtt. Warfarin bridge. INR 1.4. 11/10: underwent gastric erosion for abscess underlying peg by ACS ?? Interval History: Patient had no acute events occur overnight. Last fever at ~6:30pm last night. Objective Patient Vitals for the past 24 hrs: BP Temp Temp src Pulse Resp SpO2 11/11/22 1311 123/78 -- -- 84 18 96 % 11/11/22 0815 131/91 -- Oral 90 18 98 % 11/11/22 0453 120/69 97.5 ??F (36.4 ??C) -- 77 -- 97 % 11/11/22 0057 121/70 -- -- 102 -- -- 11/11/22 0013 130/74 -- -- 100 -- 94 % 11/10/22 2341 126/68 -- -- 104 -- -- 11/10/22 2315 125/79 -- -- 107 -- -- 11/10/22 2300 138/80 -- -- (!) 115 -- 95 % 11/10/22 2242 133/81 -- -- (!) 110 -- 94 % 11/10/223 138/74 99.9 ??F (37.7 ??C) -- (!) 118 -- 96 % 11/10/225 118/65 -- -- 102 19 93 % 11/10/220 119/63 -- -- 103 19 92 % 11/10/222144 116/59 -- -- 105 19 91 % 11/10/220 119/59 -- -- 108 20 90 % 11/10/222134 127/70 -- -- (!) 112 26 94 % 11/10/222129 123/65 -- -- (!) 110 25 94 % 11/10/222124 125/62 -- -- 109 24 94 % 11/10/222119 125/63 -- -- (!) 111 23 95 % 11/10/222114 127/64 -- -- (!) 111 24 95 % 11/10/222109 126/64 -- -- (!) 112 23 97 % 11/10/222104 126/64 -- -- (!) 116 20 100 % 11/10/222099 129/58 -- -- (!) 113 (!) 33 100 % 11/10/222054 136/41 99.4 ??F (37.4 ??C) Temporal (!) 114 26 100 % 11/10/22 1900 -- -- -- -- -- 94 % 11/10/22 1855 117/69 -- -- 105 21 91 % 11/10/22 1841 -- -- -- 102 18 95 % 11/10/22 1839 115/59 (!) 102 ??F (38.9 ??C) Axillary 105 20 -- 11/10/22 1501 119/69 98.7 ??F (37.1 ??C) Axillary 104 -- 99 % Intake/Output Summary (Last 24 hours) at 11/11/2022 1348 Last data filed at 11/11/2022 1339 Gross per 24 hour Intake 180 ml Output 2101 ml Net -1921 ml Exam: Cortical Function Mental Status Awake, alert, follows basic commands Orientation REYNOLD Language No verbal output Visual Powell Intact bilaterally to confrontation Neglect No visual neglect noted, no tactile neglect noted ?? Cranial Nerves II Pupils 3 mm and bilaterally reactive to light. Fundoscopic exam not performed. VIII Hearing is intact bilaterally to voice. III/IV/ Extraocular muscles intact. No diplopia, ptosis, nystagmus or convergence abnormalities noted. IX/X REYNOLD V REYNOLD XI Head turning and shoulder shrug are intact. VII L facial palsy XII Tongue is midline with normal movements and no atrophy noted. ?? Motor Function Movement No abnormalities noted Bulk No abnormalities noted Tone No abnormalities noted ?? Moves RUE and RLE 4/5 strength, tries to withdraw to pain in LUE and LLE 2/5 in left side ?? Sensory Light Touch REYNOLD Noxious Stimuli Symmetric and intact bilaterally ? Labs: Recent Labs Component Name 11/10/22233711/10/2222311/08/22 2346 10/23/22 0129 10/22/22 0153 WBC 7.1 3.6 5.2 - - RBC 3.22* 3.23* 3.59* - - HGB 9.5* 9.4* 10.4* - - HCT 29.7* 29.4* 33.1* - - PLT - - - - 199 - = values in this interval not displayed. Recent Labs Component Name 11/10/2222211/08/22234511/07/22 2234 NA 136 141 141 CL 105 107 108* CO2 24 24 22 BUN 13 9 8 CREATININE 0.52* 0.45* 0.53* CALCIUM 8.4 8.5 8.6 No results for input(s): MG in the last 47555 hours. Recent Labs Component Name 11/10/2222211/08/22234511/07/22 2234 PHOS 3.9 3.8 4.3 Recent Labs Component Name 11/11/22 0928 11/10/22233711/10/2222211/07/22 0305 11/06/22 2312 PT 16.2* 15.6* 20.5* - - INR 1.3 1.3 1.8 - - PTT 129.8* 36.3 - - 63.4* - = values in this interval not displayed. No results for input(s): A1C in the last 46718 hours. Recent Labs Component Name 10/20/22 0302 06/15/22 0757 CHOL 173 204* HDL 42 37* LDLCALC 91 117* TRIG 201* 251* Recent Labs Component Name 11/06/22 0136 TSH 1.682 No results for input(s): CKMB, CKTOTAL, CKMB, TROPONINI, BNP in the last 09133 hours. MRI BRAIN WWO CONTRAST Result Date: 11/10/2022 PROCEDURE: MRI BRAIN WWO CONTRAST, DATE/TIME OF EXAM: 11/09/2022 11:51 PM, LOCATION [facility] INDICATION: R50.9: Fever, unspecified fever cause ADDITIONAL [...] enhancement along the soft tissues surrounding the extra- axial collection Redemonstration of extensive cytotoxic edema in the right frontotemporoparietal regions, the right insula, and the right basal ganglia, extending along the martínez radiata /right centrum semiovale compatible with evolving acute rightMCA territory infarction. Some of these lesions show persistent restricted diffusion including basal ganglia and the right periventricular white matter suggesting evolving infarction. There is persistent local mass effect on the right cerebral hemisphere with effacement of the overlaying sulci, mild external herniation of the infarcted brain through the craniectomy defect. Interval resolution of effacement of the right lateral ventricle and the [id number] midline shift. Extensive susceptibility artifacts along the [...] CT suggesting evolving cortical laminar necrosis. Interval resolutionof restricted diffusion along small areas of, left [...] stable. The visualized portions of the orbits appeargrossly unremarkable. No significant opacification of the paranasal or mastoid air cells.. Normal flow voids are demonstrated in the carotid arteries and basilar artery. The calvarium and visualized cervical spine otherwise appear normal. IMPRESSION: 1. Redemonstration of postsurgical changes from right decompressive hemicraniectomy andevolving large volume right MCA territory infarct as described above. Mild interval increase in thecaliber of lateral and third ventricles could be secondary to decreased mass effect, less likely hyd rocephalus, continued attention recommended on follow-up. 2. Interval [...] the extra-axial fluid collection overlying the craniectomy sitecould be secondary to evolving blood products/postsurgical changes versus secondary to superimposedinfection, clinical correlation is recommended. These findings were discussed with patient's care provider, Dr. Tucker, stroke team, by on 11/10/2022 11:59 AM with read back verification. > Interpreting Provider: Oriana Suarez MD on 11/10/2022 12:[address] ABDOMEN PELVIS W CONTRAST Result Date: 11/10/2022 PROCEDURE: CT ABDOMEN PELVIS W CONTRAST DATE/TIME OF EXAM: 11/09/2022 4:49 PM CLINICAL INFORMATION: None relevant/not provided if blank. 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 TECHNIQUE: CT of the abdomen and pelvis was performed following intravenous contrast utilizing standard protocol. CT dose reduction technique was used, including Automated Exposure Control. CONTRAST: IOPAMIDOL 76 % IV SOLN:100 mL FINDINGS: Lung bases are clear. Liver is normal. The gallbladder is absent. The spleen is normal. The pancreas is normal. There is a duodenal diverticulum. Both adrenal glands are normal. Both kidneys enhance symmetrically with no hydronephrosis. The urinary bladder is decompressed with a Puentes catheter. Uterus is normal. A gastrostomy tube is present. There is a 2 cm rim-enhancing collection along the inferior aspect of the gastrostomy tube with small locule of gas seen on series 6 image 67 measuring 2.2 cm. There is no bowel obstruction. There is progressive soft tissue stranding with a mass in the right groin measuring 4 cm with small lo cules of gas, likely inflammatory mass. There is mass effect on the right femoral artery with mild narrowing as marked narrowing of the femoral vein, encased by the collection. Abdominal aorta is normal in caliber. The portal vein is patent. No suspicious osseous lytic or blastic lesion. IMPRESSION: 1. Progressive soft tissue stranding with gas in the right inguinal region with an inflammatory mass encasing the right femoral vessels with mild narrowing of the femoral artery and moderate narrowing of the femoral vein. This could represent a postsurgical hematoma. Recommend correlation with symptoms and signs of superinfection. 2. Interval placement of a gastrostomy tube with a smal l gas and fluid collection along the inferior aspect of the gastrostomy tube insertion site and stomach, measuring 2.2 cm. Findings communicated with Dr. Goyal at 2005 hours on 11/09/2022 > Interpreting Provider: Pepe Gonzalez MD on 11/10/2022 12:[address] ANGIO CHEST PULM EMBOLISM Result Date: 11/07/2022 PROCEDURE: CT ANGIO CHEST PULM EMBOLISM, DATE/TIME OF EXAM: 11/07/2022 5:25 PM, LOCATION [facility] INDICATION: R50.9: Fever, unspecified fever cause ADDITIONAL CLINICAL INFORMATION:Ordering Provider Reason For Exam: PE, fever COMPARISON: CT chest abdomen pelvis with contrast dated 10/25/2022. TECHNIQUE: CT of the chest was performed following the uneventful administration of 100mL of Isovue 370 intravenous contrast according to [...] suspicious pulmonary nodules are identified. No pleural fluidor pneumothorax is present. Heart and Pericardium: The cardiac chambers are normal in size. No pericardial fluid or thickening is present. There is no radiographic evidence of right heart strain. Mediastinum and Isabel: No enlarged lymph nodes are present. Bones and Chest Wall: Bone windows demonstrate no suspicious lytic or blastic lesions. The visible osseous structures are intact. Upper Abdomen:The visible portions of the upper abdominal organs are normal. Impression: 1.No evidence of acute pulmonary embolism. There is no radiographic evidence of right heart strain. 2.No other acute process within the chest. > Dictated by Tim Major MD (resident services coordinator). I, Alexx Lopez have personally reviewed and interpreted this examination/study. > Interpreting Provider: Alexx Lopez on 11/07/2022 10:30 PM ECHO COMPLETE Result Date: 11/07/2022 ??? Left??Ventricle: Left ventricle size is normal. EDV Index BP is 55.3 mL/m2. ESV Index BP is 18.3 mL/m2. Normal wall thickness. LVPWd is 1.01 cm. Ventricular mass is normal. Mass index 2D is 61.25g/m2. Normal systolic function with a visually estimated EF of 65 - 70%. EF by 2D Abarca biplane is 67%. Normal wall motion. Normal diastolic function. Normal mean left atrial pressure. Tissue Doppler velocity is reduced. MV peak E velocity is 102.695 cm/s. MV e' lateral velocity is 14.141 cm/s. MV e' septal velocity is 10.702 cm/s. ??? Right ventricle size is normal. Normal free wall thickness.RV wall thickness is 0.5 cm. Normal wall motion. Normal systolic function. TAPSE is 2.324 cm. Fractional area change (FAC) is 49.70%. ??? Left atrium size is normal. Left atrium volume index is 25.1mL/m2. The interatrial septum appears normal with no evidence of a shunt by color flow Doppler. No mass present. ??? Estimated right atrial pressure is normal (~3 mmHg). IVC is normal in size. SVC was not assessed. ??? Estimated sPAP is 23.0 mmHg. Estimated RVSP is 23.0 mmHg. RAP is 3.0 mmHg. Mean PA pressure of 15 mmHg. PVR < 1.5 Wood units. ? ? Normal valve morphology nd function. ? ? No pericardial effusion. ??? Normal sized annulus, sinus of Valsalva (aortic root), ascending aorta, aortic arch, descending aorta and abdominal aorta. Normal echocardiogram by 2D, m-mode, color and spectral Doppler echocardiography. IR INTRACRANIAL MECH THROMBECT Result Date: 11/07/2022 PROCEDURE: IR INTRACRANIAL MECH THROMBECT DATE/TIME OF EXAM: 10/19/2022 10:41 AM Procedure: CerebralAngiogram and Mechanical Thrombectomy for Acute Stroke Comparison Study: History: 41 year oldwith GERD, tobacco, p/w left sided neglect both sensory and visual, LWK 6:30, s/p TNK. CTA 1 M1 occlusion.Will take to IR for a mechanical thrombectomy. Notification Time: 8:21 NIHSS Score: 6 ASPECTS: 9 In-room: 8:48 Puncture Time: 8:53 Location of Clot: R M1 MCA Initial TICI: 0 Time to Clot: 9:37 Time to Reperfusion: 9:54 Final TICI: 2b Pit Slagman: Dr. Mitali Walter Meteorologist In Charge(s): Isak Monte Vessels: Ultrasound Guided Access of Femoral Artery Ultrasound Guided Access of Radial Artery Arterial line placement in the right radial artery Right Common Carotid Artery Angiogram: Cerebral Intracranial Catheterization Mechanical Thrombectomy with Retrievable Stent and Reperfusion Catheter Angiography Through the Existing Catheter Right Femoral Artery Angiogram Anesthesia: General Anesthesia was performed and monitored by an attending Anesthesiologist and their technical services assistant throughout the entirety of the case Procedural Detail: The risks, benefits, and alternatives to procedure were discussed in detail with the patient and her family. These included but were not limited to the risk of blood loss, vessel injury, stroke, renal injury, and contrast allergy. The patient was brought to the biplane angiography suite where she underwent prep and drape procedures. Limited ultrasound of the right radial artery demonstrated a patent vessel. A 5 new zealander sheath was placed in the radial artery and was used as an arterial line. Limited ultrasound of the common femoral artery demonstrated a patent vessel. The take off of the profunda and other arteries were identified. A scott scale image was documented. The right common femoral artery was accessed using a micropuncture needle. The needle entry was documented. Following a series of exchanges, a 8 Russian sheath sheath was placed in the right femoralartery. A Guide and a 6 Russian Penumbra Select Serrano 2 catheter along with a stiff 0.035 Glidwirewas navigated into the aortic arch. The catheter was used to select brachiocephalic artery followedby the right common carotid artery and finally [...] then removed from the arterial system. After 5min were allowed to elapse for maximal [...] system. Hemostasis was achieved using a 8 Russian Angio-Seal closure device. Hemostasis was immediate at [...] revascularization on the MCA territory was visualized. Impression: 1. TICI2b revascularization of the R MCA M1 occlusion. Location of Clot: Right M1 segment Initial TICI: 0 Final TICI: 2b I, Dr. Jim Walter, was present and performed/supervised theentire procedure. Jim Ornelas MD have personally reviewed and interpreted this examination/study. > Interpreting Provider: Jim Walter MD on 11/07/2022 9:21 AM XR ABDOMEN KUB PORTABLE Result Date: 11/06/2022 PROCEDURE: XR ABDOMEN KUB PORTABLE, DATE/TIME OF EXAM: 11/05/2022 5:28 PM, LOCATION [facility] INDICATION: R50.9: Fever, unspecified fever cause ADDITIONAL CLINICAL INFORMATION: Ordering Provider Reason For Exam: constipation Technologist Note: Additional: COMPARISON: 10/28/2022 KUBFINDINGS: PEG tube overlying left upper quadrant. Interval removal of enteric tube. There is no dilatation of small or large bowel. No pneumoperitoneum or pathological calcification is seen. The visible osseous structures are intact. The lung bases are clear. IMPRESSION: Non-obstructive bowel gas pattern. Report dictated by Mc Castro MD, (resident services coordinator). Pepe Ornelas MD have personally reviewed and interpreted this examination/study. > Interpreting Provider: Pepe Gonzalez MD on 11/06/2022 10:[address] HEAD WO CONTRAST Result Date: 11/05/2022 PROCEDURE: CT HEAD WO CONTRAST DATE/TIME OF EXAM: 11/05/2022 12:11 AM CLINICAL INFORMATION: None relevant/not provided if blank. 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 CT dose reduction technique was used, including Automated Exposure Control. FINDINGS: Redemonstration of postsurgical changes from decompressive right frontal parietotemporal craniectomy. Unchanged herniation of the right frontoparietal and temporal lobes through the craniectomydefect. Unchanged evolving large right MCA territory infarction involving the right frontal parietal and temporal lobes. 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 No significant midline shift. Unchanged ex vacuo dilation of the right lateral ventricle. There is interval increase in cortical hyperdensity involving the right parietal, frontal lobes (image 11, 12, 14, series 3). Extra-axial fluid collection overlying the herniated right cerebral convexity measuring 1.5 cm in thickness, not significantly changed compared to prior study. No interval change in the scott- white matter differentiation. No significant opacification of the mastoid or paranasal sinuses. No acute soft tissue findings or calvarial findings. IMPRESSION: 1. Redemonstration of post surgical changes from decompressive hemicraniectomy and evolving large right MCA territory subacute infarct. Interval increased linear hyperdense foci along thecortex of right frontal and parietal lobes could be secondary to evolving cortical laminar necrosisversus developing petechial hemorrhages. Continued attention recommended on short-term follow-up. However no hematoma noted. No evidence of midline shift. These findings were discussed with patient'scare provider, Dr. Roth with neurology, by on 11/05/2022 5:46 PM with read back verification. > Interpreting Provider: Oriana Suarez MD on 11/05/2022 5:48 PM XR CHEST 1VW PORTABLE Result Date: 11/05/2022 PROCEDURE: XR CHEST 1VW PORTABLE, DATE/TIME OF EXAM: 11/05/2022 9:38 AM, LOCATION [facility] INDICATION: R50.9: Fever, unspecified fever cause ADDITIONAL CLINICAL INFORMATION: Ordering Provider Reason For Exam: consolidation COMPARISON: Chest radiograph 10/29/2022. FINDINGS/IMPRESSION: Previously seen feeding tube has been removed. These no confluent consolidation, pleural effusion, or pneumothorax is noted. The cardiomediastinal silhouette is stable. No acute osseous abnormality is noted. Report dictated by Christopher Tobin MD, MD (resident services coordinator). HEATHER Ornelas MD have personally reviewed and interpreted this examination/study. > Interpreting Provider: HEATHER FREGOSO MDon 11/05/2022 2:[address] ABDOMEN WO CONTRAST Result Date: 11/02/2022 PROCEDURE: CT ABDOMEN WO CONTRAST, DATE/TIME OF EXAM: 2022 6:47 PM, LOCATION [facility] INDICATION: Z93.1: Presence of externally removable percutaneous endoscopic gastrostomy (PEG) tube (CMS/HCC) ADDITIONAL CLINICAL INFORMATION: Ordering Provider Reason For Exam: diffcult percutaneous PEG tube placement, rule out complications COMPARISON: CT abdomen pelvis with contrast dated 10/31/2022 TECHNIQUE: CT of the chest, abdomen, and pelvis was performed without contrast according to standard protocol. Findings: Evaluation of visceral and vascular structures is degraded due tolack of intravenous contrast administration. Lines/tubes: *Interval placement of a percutaneous trudi rostomy tube with intraluminal placement of tip and [...] Bone windows demonstrate no suspicious lytic or blasticlesions. The visible osseous structures are intact. Soft tissues: Normal. Impression: Interval placement of a percutaneous gastrostomy tube with intraluminal placement of tip and inflated balloon within the body/antrum of the stomach without complication, as clinically queried.. > Dictated by Tim Major MD (resident services coordinator). Pepe Ornelas MD have personallyreviewed and interpreted this examination/study. > Interpreting Provider: Pepe Gonzalez MD on 11/02/2022 1:[address] ABDOMEN PELVIS W CONTRAST Result Date: 10/31/2022 PROCEDURE: CT ABDOMEN PELVIS W CONTRAST, DATE/TIME OF EXAM: 10/31/2022 10:16 AM, LOCATION [facility] INDICATION: I33.0: Aortic valve vegetation ADDITIONAL CLINICAL INFORMATION: Ordering Provider Reason For Exam: abscess? Technologist Note: Additional: COMPARISON: CT chest abdomen and pelvis 10/25/2022. TECHNIQUE: CT of the abdomen and pelvis was performed following the uneventful administration of 100 mL of Isovue 370 intravenous contrast according to standard protocol. Findings: Lower Chest: Bibasilar subsegmental atelectasis present. Liver: Normal. Gallbladder and Bile Ducts: The gallbladder is absent. Spleen: Normal. Pancreas: Normal. Adrenals: Normal. Kidneys: Normal. Bladder: A Puentes catheter terminates within a decompressed urinary bladder. Gastrointestinal: Enteric tube terminates in the stomach. Duodenal diverticulum present. The stomach and visualized loops of large and small bowel are otherwise unremarkable. Normal appendix. Mesentery/Peritoneum/Retroperitoneum: Normal. Reproductive Organs: The uterus is normal. Vasculature: There is been interval postsurgical changes to the right common femoral/external iliac artery region with previously seen thrombus in this region no longer visualized. There is however irregularity of the distal right external iliacand proximal right common femoral artery and mild narrowing in this region likely resenting postsurgical changes. Questionable flap in the proximal common femoral artery (series 3 image 153). Bones: Bone windows demonstrate no suspicious lytic or blastic lesions. The visible osseous structures are intact. Soft tissues: There is extensive soft tissue stranding edema and fluid throughout the right groin with multiple foci of subcutaneous gas along likely represent post surgical changes. Although there is focal fluid was prominent at series 3, image 153 in this region no rim- enhancing drainable fluid collections are appreciated at this time. Impression: 1.Interval postsurgical changes to the distal right external iliac/proximal right common femoral arteries with previously seen thrombus in this region no longer visualized. There is however irregularity of the artery in this region with mild narrowing which is favored to represent postsurgical changes. Questionable flap within the proximal common femoral artery as detailed above. 2.Extensive soft tissue stranding, edema and fluid along with subcutaneous gas in the right groin likelyrepresenting postsurgical changes. Although there is focal fluid in this region, no rim-enhancing drainable fluid collections are appreciated at this time. > Interpreting Provider: Alexx Lopez on 10/31/2022 11:[address] HEAD WO CONTRAST Result Date: 10/31/2022 EXAM: CT HEAD WO CONTRAST, DATE/TIME OF EXAM: 10/30/2022 8:22 PM, LOCATION: [facility] HISTORY: I63.511: Right middle cerebral artery stroke (CMS/HCC) ADDITIONAL CLINICAL INFORMATION: Ordering Provider Reason For Exam: Heparin supratherapeutic bleed follow up. EXAMINATION: CT scan of the head without intravenous contrast TECHNIQUE: CT of the head was performed without intravenouscontrast according to standard protocol. CT dose reduction technique was used, including Automated Exposure Control. COMPARISON: Head CT 10/28/2022. Brain MRI 10/24/2022. FINDINGS: See impression. IMPRESSION: Compared to prior head CT 10/28/2022: 1.Re-demonstrated postsurgical changes of decompressive right frontoparietotemporal craniectomy with multiple overlying scalp carla. Evolving heterogeneous subdural hematoma along the right frontotemporal convexity measuring up to 8 mm in maximal thickness (5/32), previously measuring up to 9 mm in thickness. 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 Increased conspicuity of a thin hyperdensity along the cortex within this region suggestive of evolving cortical laminar necrosis. 3.Re-demonstrated small hypodensity of the left inferior frontal gyrus/frontal operculum, consistent with an evolving vyzgtefy-fi-agbbucl infarct. 4.No significant midline shift. Similar-appearing size and configuration of the ventricles without evidence of hydrocephalus. Basal cisterns are patent. 5.No other convincing change. Partially imaged left nasoenteric tube. > Interpreting Provider: Amanda Real MD, PhD on 10/31/2022 1:26 AM MI GLENN Llamas ANGIO TEAM Result Date: 10/30/2022 Fluoroscopy was used for this exam in the OR. Please see the Operative report. XR CHEST 1VW PORTABLE Result Date: 10/29/2022 PROCEDURE: XR CHEST 1VW PORTABLE, DATE/TIME OF EXAM: 10/29/2022 10:29 AM, LOCATION [facility] INDICATION: R09.02: Hypoxia ADDITIONAL CLINICAL INFORMATION: Ordering Provider Reason For Exam: evaluate for hypoxia COMPARISON: Chest x-ray from 10/27/2022 FINDINGS/IMPRESSION: Enteric tube is seen coursing over the diaphragm without visualization of the distal tip. There is no focal consolidation, pleural effusion, or pneumothorax. The cardiomediastinal silhouette is normal. Report dictated by Jacques Russell DO (resident services coordinator). Jacques Ornelas DO have personally reviewed and interpreted this examination/study. > Interpreting Provider: Jacques Cole DO on 10/29/2022 12:59 PM XR ABDOMEN KUB Result Date: 10/29/2022 PROCEDURE: XR ABDOMEN KUB, DATE/TIME OF EXAM: 10/28/2022 11:13 PM, LOCATION [facility] INDICATION: I63.511: Right middle cerebral artery stroke (CMS/HCC) ADDITIONAL CLINICAL INFORMATION: Ordering Provider Reason For Exam: NG placement COMPARISON: KUB from 10/28/2022 at 1:44 AM FINDI NGS/IMPRESSION: Enteric tube courses below the diaphragm with the distal tip superimposing the antropyloric region. Report dictated by Jacques Russell DO (resident services coordinator). Jacques Ornelas DOhave personally reviewed and interpreted this examination/study. > Interpreting Provider: Jacques Cole DO on 10/29/2022 12:49 PM XR ABDOMEN KUB PORTABLE Result Date: 10/28/2022 EXAMINATION: XR ABDOMEN KUB PORTABLE HISTORY: 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 FINDINGS/IMPRESSION: Enteric tube courses below the diaphragm with the distal tip superimposing the antropyloric region. Report dictated by Martell Shetty MD (resident services coordinator). Jacques Ornelas DO have personally reviewed and interpreted this examination/study. > Interpreting Provider: Jacques Cole DO on 10/28/2022 12:[address] HEAD WO CONTRAST Result Date: 10/28/2022 PROCEDURE: CT HEAD WO CONTRAST, DATE/TIME OF EXAM: 10/28/2022 5:28 AM, LOCATION [facility] INDICATION: Z91.89: At high risk for bleeding after thrombolytic therapy monitor for hemorrhagic bleed given heparin use in massive stroke EXAMINATION: Computed tomography (CT) of the head without contrast TECHNIQUE: CT of the head was performed without contrast according to standard protocol. CT dose reduction technique was used, including Automated Exposure Control. COMPARISON: CT head without contrast dated 10/27/2022 FINDINGS: Redemonstrated are postoperative changes of decompressiveright frontoparietotemporal craniectomy, with multiple overlying scalp carla. Redemonstrated slightly heterogeneous subdural hemorrhage along the right frontotemporal convexity measuring 9 mm in the maximal thickness (series 3 image 17), without significant change compared to prior study. Redemonstrated evolving right MCA infarct. There is moderate mass effect on the right lateral ventricle. There is again associated mild external herniation through the craniectomy site. Unchanged gyriform hyperdensity within the infarcted area which may represent laminar necrosis. Small volume of subarachnoid hemorrhage cannot be completely ruled out. No new acute intracranial hemorrhage. The ventricles are mildly dilated compared to 10/19/2022, otherwise unchanged compared to 10/27/2022. The basal cisterns are patent. No midline shift is seen. Unchanged small focus of hypoattenuation in the left frontal lobe (series 3 image 20) likely represents a small subacute infarct. Partially visualized nasogastric tube. The visualized portions of the orbits, paranasal sinuses, and mastoids appear normal. No acute calvarial fracture is identified. IMPRESSION: 1. Evolving right MCA subacute infarct status post decompressive craniectomy. Grossly unchanged right frontotemporal subdural hemorrhage. Grossly unchanged gyriform hyperdensity in the infarcted area may represent subarachnoid hemorrhage. No midline shift. Unchanged mildly dilated ventricles may represent mild hydrocephalus. 2. Unchanged small focus of hypoattenuation in the left frontal lobe likely represents additional subacute infarct. The report is dictated by Kayla Stevenson MD (resident services coordinator) 1 I, Lonnie Rae MD have personally reviewed and interpreted this examination/study. > Interpreting Provider: Lonnie Rae MD on 10/28/2022 9:15 AM XR CHEST 1VW PORTABLE Result Date: 10/27/2022 PROCEDURE: XR CHEST 1VW PORTABLE, DATE/TIME OF EXAM: 10/27/2022 10:19 AM, LOCATION [facility] INDICATION: D72.829: Leukocytosis, unspecified type ADDITIONAL CLINICAL INFORMATION: Ordering Provider Reason For Exam: any concern for pneumonia COMPARISON: Chest radiograph dated 10/25/2022. FINDINGS/IMPRESSION: Enteric tube courses below the diaphragm and out of the [id number]. RUQ surgical clips are present. No focal consolidation. No pleural effusion or pneumothorax. The cardiomediastinal silhouette is normal. Report dictated by Agnes Olmos DO (resident services coordinator). I, Pepe Gonzalez MD have personally reviewed and interpreted this examination/study. 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 COMPARISON: 10/26/2022. FINDINGS: Redemonstration of postoperative anisha nges of decompressive right cranioplasty. An evolving extra-axial hematoma is again noted in the craniotomy site. Small volume subarachnoid hemorrhage is is again seen in the right cerebral sulci. Again noted is herniation of the intracranial contents through the craniectomy defect. Again demonstrated is an evolving subacute infarct in the nearly entire right MCA distribution, grossly unchanged. There is persistent mass effect on the lateral ventricle. A small hypoattenuating focus is again noted in the left frontal lobe, which may represent a small subacute infarct. The ventricles are stable. The basal cisterns are patent. No midline shift. The scott-white matter differentiation is normal. The visualized portions of the orbits, paranasal sinuses, and mastoids appear normal. No acute calvarial fracture is identified. IMPRESSION: 1. Redemonstration of evolving right MCA subacute infarct, status post right decompressive craniectomy. The extra-axial hematoma underlying the craniectomy site and subarachnoid hemorrhage in the right cerebral sulci are grossly unchanged. Mass effect on the right lateral ventricle is unchanged. No significant midline shift. 2. Small focus of likely a subacute infarct in the left frontal lobe is unchanged. > Interpreting Provider: Lonnie Rae MD on 10/27/2022 12:10 PM XR CHEST 1VW PORTABLE Result Date: 10/26/2022 PROCEDURE: XR CHEST 1VW PORTABLE, DATE/TIME OF EXAM: 10/25/2022 9:41 AM, LOCATION [facility] INDICATION: I63.511: Right middle cerebral artery stroke (CMS/HCC) ADDITIONAL CLINICAL INFORMATION: Ordering Provider Reason For Exam: Atlectasis/mucus plugging Comparison: Chest x-ray from10/23/2022, and CT chest, abdomen, pelvis from same day FINDINGS/IMPRESSION: Interval removal of theendotracheal tube. Enteric tube courses below the diaphragm and out of the czpqn-to-[id number]. There is severe left rotation of the patient in this study. There is no focal consolidation, pleural effusion, or pneumothorax. The left upper lobe pulmonary nodule noted on chest CT from same day is not visualized on this plain film. The cardiomediastinal silhouette is normal. The visible bony thorax is intact. Report dictated by Royer Stovall MD (resident services coordinator). IAlexx have personally reviewed and interpreted this examination/study. 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 COMPARISON: Comparison ismade with a CT head dated 10/25/2022. FINDINGS: Redemonstration of postoperative changes of right decompressive hemicraniectomy. Redemonstration of large volume confluent acute infarct in the right MCA territory involving the right frontal parietal temporal and insular regions and basal ganglia. Redemonstration of mild herniation of the right frontoparietal and temporal regions through the craniectomy defect. Redemonstration of a curvilinear extra-axial/extracranial fluid collection overlying the right cerebral convexity containing debris and blood products, measuring about 7 mm in thickness not significantly changed compared to prior study. Redemonstration of linear foci of hyperdensity along the evolving infarct most likely secondary to prominent vasculature. No new hyperdense foci within the evolving infarct. No evidence of transtentorial or tonsillar herniation. Station a mass effectfrom the large evolving right MCA territory infarct with effacement of sulci, and effacement of theright lateral ventricle. There is a large area of recent infarction seen in the right hemisphere inthe MCA territory with associated mass effect and some effacement of the right lateral ventricle grossly unchanged from prior. There are foci of hypoattenuation consistent with small evolving subacute to acute infarcts within the left frontal lobe periventricular white matter and left martínez radiata extending up to the left frontal subcortical regions also unchanged compared to prior study. No new intracranial hemorrhage or intra- or extra-axial fluid collections are identified. The left lateral ventricle, third and fourth ventricles are of normal size, shape, and morphology. The basal cisterns are patent. Leftward midline shift is approximately 2 mm as measured at the foramen of Monro, unchanged from yesterday. The visualized portions of the orbits, paranasal sinuses, and mastoids appearnormal. No acute calvarial fracture is identified. Partially visualized nasal tube IMPRESSION: 1. Redemonstration of evolving large right MCA territory acute to subacute infarct without definite evidence of hemorrhagic transformation. Unchanged minimal leftward midline shift of about 2 mm at the level of foramen of Monro and effacement of the left lateral ventricle. 2. Redemonstration of postsurgical changes from right-sided decompressive hemicraniectomy, unchanged compared to prior study. These results were discussed with stroke resident Dr Mendez by Dr. Miranda Bowen at8:05 AM on 10/26/2022 with read back confirmation and closed-loop communication. The report is dictated by Miranda Bowen MD (resident services coordinator) I, Oriana Suarez MD have personally reviewed and interpreted this examination/study. > Interpreting Provider: Oriana Suarez MD on 38:[address] CHEST ABDOMEN PELVIS W CONT Result Date: 10/25/2022 PROCEDURE: CT CHEST ABDOMEN PELVIS W CONT, DATE/TIME OF EXAM: 10/25/2022 12:56 PM, LOCATION [facility] INDICATION: I63.511: Right middle cerebral artery stroke [...] Neck and Axillae: Normal. Lungs: Subsegmental atelectasis ofthe posterior lungs. No pleural fluid or pneumothorax is present. There is a 3 mm nodule in the left upper lobe (image 47 series 5). Heart and Pericardium: The cardiac chambers are normal in size. Nopericardial fluid or thickening is present. Mediastinum and [...] groin. Subcutaneous gas in the lower left anteriorabdominal wall related to subcutaneous injections. Impression: 1.Occlusion [...] verification. > Dictated by Clarisa Cantrell MD (resident services coordinator). I, Alexx Lopez have personally reviewed and interpreted this examination/study. 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 COMPARISON: Comparison is made with brain MR [address] head dated 10/23/2022 FINDINGS: There are postoperative ch anges of right hemicraniectomy. There is soft tissue thickening and skin carla overlying the operative defect. There is curvilinear fluid collection collection overlying the right cerebral convexity within the craniectomy defect containing some recent blood products and which measures approximately 22 mm in maximum thickness. There is a large area of recent infarction in the right cerebral hemisphere in the distribution in the distribution of the right middle cerebral artery. Mass effect is produced by this. There is a small amount of midline shift right to left of roughly 2 mm at the levelof the foramen of Monro. There is some compression of the right lateral ventricle. The left lateralventricle, third, and fourth ventricles are normal in size. There are foci of decreased attenuationconsistent with small recent infarcts within the left frontal lobe and left martínez radiata. Bone window images demonstrate no signal suspicious lytic or blastic lesions. When today's study is compared to the parenchyma of 24 October [address] 23 October, there may be slightly less mass effectand midline shift on today's study and the fluid collection within the craniectomy defect overlyingthe lateral right cerebral hemisphere is slightly smaller. There has been interval removal of the drainage tube that was present within the craniectomy defect on previous brain CT and there is less air/gas within the operative defect relative to the previous brain CT. IMPRESSION: Redemonstrated postoperative changes consistent with right calvarial hemicraniectomy. Fluid collection overlying the lateral right cerebral hemisphere within the craniectomy defect containing some recent blood products. The overall size of this fluid collection is less than on previous study. In addition, there is less air/gas within this defect. Evolving large recent right cerebral hemisphere infarct with mass effect and approximately 2 mm of midline shift right to left. There appears to be slightly less mass effect and midline shift on today's study. Continued follow-up is recommended. Small recent cortical infarct in the lateral left frontal lobe as well as small recent infarc t in left martínez radiata which appears similar to previous study. Clinical correlation recommended.The report is dictated by Miranda Bowen MD (resident services coordinator) I, Joni Fabian MD have personally reviewed and interpreted this examination/study. > Interpreting Provider: Joni Fabian MD on 10/25/2022 2:[address] CARDIAC ANGIO STRUCT MORPH Result Date: 10/25/2022 PROCEDURE: CT CARDIAC ANGIO STRUCT MORPH, DATE/TIME OF EXAM: 10/23/2022 3:08 PM, LOCATION [facility] INDICATION: I63.411: Acute cerebrovascular accident (CVA) due to embolism of right middle cerebral artery (CMS/HCC) ADDITIONAL CLINICAL INFORMATION: Ordering Provider Reason For Exam: L atrial valve vegetations Technologist Note: Additional: COMPARISON: None. Procedure: CT structure and morphology with intravenous contrast material, including 3D image post-processing Acquisitionmode: Retrospective ECG gated. Contrast type and volume:Isovue .100 mL. Complications: None.. Imagequality: Good signal noise. There is motion artifact Heart rate: 99 bpm. Coronaries: The coronary arteries are not completely visualized due to motion artifact given the increase heart rate. Within the limitations, coronary arteries are normal in course and morphology and patent without calcification or plaque. Other cardiac findings: Left Atrium: The left atrium is normal size with no left atrial appendage filling defects. Left Ventricle: The ventricular cavity [...] the available limited view of the abdomen. Impression: 1. 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 2. Patent coronary vessels within the limitation of the motion artifact given the elevated heart during this exam > Interpreting Provider: Pepe Gonzalez MD on 10/25/2022 12:03 AM XR ABDOMEN KUB PORTABLE Result Date: 10/24/2022 PROCEDURE: XR ABDOMEN KUB PORTABLE, DATE/TIME OF EXAM: 10/24/2022 2:04 PM, LOCATION [facility] INDICATION: R47.1: Dysarthria ADDITIONAL CLINICAL INFORMATION: Ordering Provider ReasonFor Exam: ngt placement COMPARISON: Portable KUB dated 10/23/2022 FINDINGS/IMPRESSION: The enteric tube courses below the diaphragm with tip superimposing the gastric pyloric region. Drafted by Agnes Olmos DO (resident services coordinator). I, Vanessa Kumar MD have personally reviewed and interpreted this examination/study. > Interpreting Provider: Vanessa Kumar MD on 10/24/2022 2:17 PM MRI BRAIN WWO CONTRAST Result Date: 10/24/2022 PROCEDURE: MRI BRAIN WWO CONTRAST, DATE/TIME OF EXAM: 10/24/2022 10:56 AM, LOCATION [facility] INDICATION: I63.411: Acute cerebrovascular accident (CVA) due to embolism of right middle cerebral artery (CMS/HCC) ADDITIONAL CLINICAL INFORMATION: Ordering Provider Reason For Exam: Stroke workup Technologist Note: Does the patient have a defibrillator, pacemaker, aneurysm clips or implanted mechanical devices?->No Does the patient have metal implants or stents?->No Additional: None. EXAMINATION: Magnetic resonance imaging (MRI) of the brain without and with contrast CONTRAST: GADOBUTROL 1 MMOL/ML IV SSM SO:9.5 mL TECHNIQUE: MRI of the brain was performed prior to and following the uneventful administration of 9.5 mL intravenous GADAVIST contrast according to standard protocol. COMPARISON: CT of the head from 10/23/2022. FINDINGS: Redemonstration of postoperative changes of decompressive right hemicraniectomy with expected interval evolution of the previously seen post surgical changes along the craniectomy site. Redemonstration of extra-axial collection along the craniectomy site containing extra-axial blood products and fluid, measuring approximately 2.4 cm in thickness, (series 9, image 13), previously measured approximately 2.5 cm, grossly unchanged from prior. Interval resolution/redistribution of the previously seen foci of pneumocephalus compared to the prior CT. Interval removal of the previously seen right intracranial pressure monitor. Redemonstration of extensive cytotoxic edema in the right frontotemporoparietal regions, the right insula, and the right basal ganglia, extending along the martínez radiata and the marginally along the lateral aspect of the right centrum semiovale compatible with evolving acute right MCA territory infarction. There is persistent local mass effect on the right cerebral hemisphere with effacement of the overlayingsulci, mild external herniation of the infarcted brain through the craniectomy defect, effacement of the right lateral ventricle, and approximately 3-4 mm [id number] midline shift at the level of the foramen of Monro, (series 13, image 18),, previously measured approximately 3 mm, (series 6, image 35), when remeasured, grossly similar to the prior. Extensive susceptibility artifacts along the craniectomy site compatible with expected postsurgical changes. There are additional scattered foci of restricted diffusion in the left frontoparietal region, extending along the subcortical white matter of the lateral left frontal lobe, the right martínez radiata, and the centrum semiovale, compatible with a small evolving acute to subacute infarcts. Otherwise, no new intracranial hemorrhage is identified. The ventricular caliber appears grossly stable compared to the prior. For reference, the diameter of the left ventricular trigone measures approximately 1.2 cm, (series 4, image 33), previously measured approximately 1.3 cm, (series 4, image 19). The basal cisterns are mildly effaced. The re maining ventricles are of normal size, shape, and morphology. Diffuse leptomeningeal enhancement along the right frontotemporoparietal infarcted area compatible with expected reactive changes. No enhancing lesions are otherwise identified. The corpus callosum and sella appear normal. The posterior fossa, brainstem, and craniocervical junction appear grossly stable. The visualized portions of the orbits appear grossly unremarkable. There is mild paranasal sinus disease. There is suspected minimal opacification in the right mastoid air cells. The remaining mastoid air cells appear grossly clear. Normal flow voids are demonstrated in the carotid arteries and basilar artery. The calvarium and visualized cervical spine otherwise appear normal. IMPRESSION: 1.Redemonstration of postoperative changes of a right hemicraniectomy with expected postsurgical changes as outlined above. 2.Redemonstration of evolving large right MCA territory infarction with extensive cytotoxic edema and mild external herniation of the brain through the craniectomydefect. Persistent local mass effect on the right cerebral hemisphere, effacement of the right lateral ventricle, and approximately 3-4 mm jrhfr-bb-[id number] midline shift, grossly similar to the prior. 3.Mild dilation of the left lateral ventricle may represent subtle left ventricular entrapment, overall grossly similar to prior. 4.Additional multiple foci of abnormal diffusion within the left frontotemporal lobes with associated T2 FLAIR hyperintensity representing additional small acute to subacute infarcts, likely of cardioembolic etiology. Findings communicated to Dr. Mohr by Dr. Major at 1138 hours on 10/24/2022 with readback comprehension and verification. Report dictated by Tim Major MD (resident services coordinator). Jasper Ornelas MD have personally reviewed and interpreted this examination/study. > Interpreting Provider: Jasper Sifuentes MD on 10/24/2022 1:59 PM XR CHEST 1VW PORTABLE Result Date: 10/24/2022 PROCEDURE: XR CHEST 1VW PORTABLE, DATE/TIME OF EXAM: 10/23/2022 8:24 AM, LOCATION [facility] INDICATION: I63.511: Right middle cerebral artery stroke (CMS/HCC) ADDITIONAL CLINICAL INFORMATION: Ordering Provider Reason For Exam: OETT position COMPARISON: Chest radiograph dated 10/21/2022 FINDINGS/IMPRESSION: The enteric tube courses below the diaphragm out of the inferior mgpve-[id number]. Endotracheal tube terminates in the midthoracic trachea. There is no focal consolidation. No pleural effusion or pneumothorax. The cardiomediastinal silhouette is normal. No acute osseous abnormality. Report dictated by Agnes Olmos DO (resident services coordinator). Vanessa Ornelas MD have personally reviewed and interpreted this examination/study. > Interpreting Provider: Vanessa Kumar MD on 10/24/2022 1:03 PM ECHO SARAH Result Date: 10/24/2022 ??? Aortic??Valve: Valve structure is normal. There is a 6 x 7 mm independently mobile mass on the left coronary cusp. Differential includes vegetation (non- bacterial thrombotic endocarditis, infective endocarditis) vs less likely fibroelastoma. ??? Left??Atrium: No right to left intracardiac or extracardiac shunt present viewable with agitated saline, color Doppler and Valsalva maneuver. Normal sized appendage. Normal appendage flow velocity. No thrombus present in the left atrial appendage (MADELEINE). ??? Left??Ventricle: Left ventricle size is normal. Hyperdynamic systolic function with a visually estimated EF of 75 - 80%. ??? No hemodynamically significant valvular abnormality. XR ABDOMEN KUB PORTABLE Result Date: 10/24/2022 PROCEDURE: XR ABDOMEN KUB PORTABLE, DATE/TIME OF EXAM: 10/23/2022 1:53 PM, LOCATION [facility] INDICATION: R47.1: Dysarthria ADDITIONAL CLINICAL INFORMATION: Ordering Provider ReasonFor Exam: NGT placement COMPARISON: Portable KUB dated 10/20/2022 FINDINGS/IMPRESSION: The enteric tube courses below the diaphragm with tip superimposing the stomach. Drafted by Agnes Olmos DO (resident services coordinator). I, Vanessa Kumar MD have personally reviewed and interpreted this examination/study. 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 EXAMINATION: Computed tomography (CT) of the head without contrast TECHNIQUE: CT of the head was performed without contrast according to standard protocol. CT dose reduction technique was used, including Automated Exposure Control. COMPARISON: Comparison is made with a CT head dated 10/22/2022. FINDINGS: Redemonstration of postoperative changes consistent of a right hemicraniectomy with underlying extra-axial blood products along the lateral cerebral convexity and small foci of pneumocephalus, slightly decreased or redistributed compared to prior. Unchanged appearance of a right intracranial pressure monitor. Extensive cytotoxic edema and mass effect in the right MCA territory with associated diffusesulci effacement and right lateral ventricle effacement grossly unchanged from prior. There is a right to left midline shift measuring up to 2 mm, stable to mildly improved from prior. No new intracranial hemorrhage or intra- or extra-axial fluid collections are identified. The ventricular morphology is stable compared to prior exams. The basal cisterns are mildly effaced. The visualized portionsof the orbits appear grossly unremarkable. Minimal opacification in the left ethmoid air cells. Theimaged mastoid air cells appear grossly clear. A presumed nasogastric tube present. Mild dilation of the left lateral ventricle likely representing mild left ventricular entrapment. Hyperdensity along the right sylvian fissure compatible with right MCA thrombosis. No acute calvarial fracture is identified. There is soft tissue edema overlying the right hemicraniectomy site and right zygomatic region are essentially unchanged from prior. IMPRESSION: 1.Redemonstration of postsurgical changes of decompressive craniectomy and evolving right middle cerebral artery territory infarct. 2.No hemorrhagic transformation. 3.Extensive cytotoxic edema and mass effect with approximately 2 mm midline shift, [place] similar or slightly improved from prior. 4.Stable right intracranial pressure monitor. The report is dictated by Miranda Bowen MD(resident services coordinator) I, Jasper Sifuentes MD have personally reviewed and interpreted this examination/study. 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 COMPARISON: No prior study is available for comparison at the time of this dictation. FINDINGS: Redemonstration of post surgical changes of a right hemicraniectomy, and a right MCA infarct. Stable appearance of right intracran ial pressure monitor. There are extra-axial blood products along the right lateral cerebral convexity at the craniectomy site with associated pneumocephalus consistent with postsurgical changes. There is extensive edema and mass effect in the right MCA territory. There is sulcal effacement and effac ement of the right lateral ventricle. There is right to left midline shift measuring up to 4 mm, stable from prior There is no evidence of new acute intracranial hemorrhage. The ventricular morphology is stable compared to prior examination. The basilar cisterns are patent. The orbits appear normal. The paranasal sinuses are clear. The mastoid air cells are clear. IMPRESSION: 1.Redemonstration of postsurgical changes of decompressive right hemicraniectomy for evolving right middle cerebral artery territory infarct. There is significant edema and mass effect with approximately 4 mm of midline shift, unchanged from prior. No evidence of new acute intracranial hemorrhage. > Interpreting Provider: Lonnie Rae MD on 10/22/2022 3:[address] HEAD WO CONTRAST Result Date: 10/22/2022 PROCEDURE: CT HEAD WO CONTRAST DATE/TIME OF EXAM: 10/22/2022 2:33 PM CLINICAL INFORMATION: None relevant/not provided if blank. 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 FINDINGS: Redemonstration of post surgical changes of a right hemicraniectomy, and a right MCA infarct. Stable appearance of right intracranial pressuremonitor. There are extra-axial blood products along the right lateral cerebral convexity at the craniectomy site with associated pneumocephalus consistent with postsurgical changes. There is extensive edema and mass effect in the right MCA territory. There is sulcal effacement and effacement of theright lateral ventricle. There is right to left midline shift measuring up to 4 mm, stable from prior There is no evidence of new acute intracranial hemorrhage. The ventricular morphology is stable compared to prior examination. The basilar cisterns are patent. The orbits appear normal. The paranasal sinuses are clear. The mastoid air cells are clear. IMPRESSION: 1.Stable appearance of postsurgical changes of decompressive right hemicraniectomy for evolving right middle cerebral artery territory infarct. There is significant edema and mass effect with approximately 4 mm of midline shift, unchanged from prior. No evidence of new acute intracranial hemorrhage. Report dictated by Lorenzo Horta MD (nursing resident). Lonnie Ornelas MD have personally reviewed and interpreted this examination/study. > Interpreting Provider: Lonnie Rae MD on 10/22/2022 3:10 PM XR CHEST 1VW PORTABLE Result Date: 10/21/2022 PROCEDURE: XR CHEST 1VW PORTABLE, DATE/TIME OF EXAM: 10/21/2022 8:53 AM, LOCATION [facility] INDICATION: R53.1: Weakness ADDITIONAL CLINICAL INFORMATION: Ordering Provider Reason ForExam: post intubation COMPARISON: None. Chest radiograph FINDINGS/IMPRESSION: Lines, tubes, hardware: * An endotracheal tube seen with the tip appropriately positioned in the mid thoracic trachea. * E nteric tube is seen with its tip below the diaphragm out of the field of view. Minimal right basilar airspace opacification. Otherwise, no confluent consolidation. No pneumothorax is visible. The cardiomediastinal silhouette is normal. The visible bony thorax is intact. Report dictated by Christopher Tobin MD, MD (resident services coordinator). IHEATHER MD have personally reviewed and interpreted this examination/study. > Interpreting Provider: HEATHER FREGOSO MD on 10/21/2022 5:59 PM ECHO TRANSTHORACIC W BUBBLE STUDY Result Date: 10/20/2022 ??? Left??Ventricle: Left ventricle size is normal. Normal wall thickness. Normal systolic functionwith a visually estimated EF of 60 - 65%. Normal wall motion. Normal diastolic function. ??? NormalRV size and systolic function. ??? No significant valvular abnormalities. ??? Bubble study negativefor shunt. ??? Normal IVC and visualized portion of aorta. CT HEAD WO CONTRAST Result Date: 10/20/2022 DATE/TIME OF EXAM: 10/20/2022 9:13 PM, LOCATION [facility] INDICATION: I63.411: Acute cerebrovascular accident (CVA) due to embolism of right middle cerebral artery (CMS/HCC) ADDITIONAL CLINICAL INFORMATION: Ordering Provider Reason For Exam: [facility] COMPARISON: Multiple prior studies, most recently CT head dated 10/20/2022 at 8:19 AM TECHNIQUE: CT of the head was performed withoutcontrast according to standard protocol. FINDINGS: There has been interval postsurgical changes of right hemicraniectomy for management of cerebral edema following right MCA territory infarct. A right-sided subdural drain is in place. There is redemonstration of evolving right middle cerebral artery territory infarct, with associated edema and mass effect with sulcal effacement, effacement of theright lateral ventricle, and bntax-hz-spxg midline shift measuring up to 4 mm and stable from prior(series 5, image 36). A catheter is seen terminating within the region of the right parietal lobe, likely representing an ICP monitor. No evidence of acute intracranial hemorrhage. The ventricular morphology is stable from prior, without evidence of obstructive hydrocephalus. The basilar cisterns are patent. The scott-white matter differentiation otherwise appears normal. The orbits appear normal.The paranasal sinuses are clear. The mastoid air cells are clear. No soft tissue abnormality is identified. IMPRESSION: Interval postsurgical changes of decompressive right hemicraniectomy with ICP monitor and subdural drain in place. 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 > Dictated by Bassam Jovel M.D. (nursing resident) Gonzalez Ornelas MD have personally reviewed and interpreted this examination/study. > Interpreting Provider: Gonzalez Velasco MD on 10/20/2022 11:06 PM XR ABDOMEN KUB PORTABLE Result Date: 10/20/2022 PROCEDURE: XR ABDOMEN KUB PORTABLE DATE/TIME OF EXAM: 10/20/2022 12:44 PM Indication: I63.511: Rightmiddle cerebral artery stroke (CMS/HCC) Evaluation of NG tube placement COMPARISON: None. FINDINGS/IMPRESSION: An enteric tube is seen coursing into the stomach with its tip and side-port in the gastric body. Report dictated by Royer Stovall MD (resident services coordinator). Amanda Ornelas MD have personally reviewed and interpreted this examination/study. > Interpreting Provider: Amanda Prieto MD on 10/20/2022 3:[address] HEAD NON CONTRAST Result Date: 10/20/2022 PROCEDURE: CT HEAD WO CONTRAST DATE/TIME OF EXAM: 10/20/2022 8:19 AM CLINICAL INFORMATION: None relevant/not provided if blank. Indication: R44.9: Left-sided sensory deficit present Additional History: Follow-up of acute stroke COMPARISON: Noncontrast brain CT 19 October 2022. TECHNIQUE: Noncontrast CT brain was performed utilizing standard protocol. CT dose reduction technique was used, including Automated Exposure Control. FINDINGS: There is no definite acute intracranial hemorrhage. There is alarge confluent area of decreased attenuation within the right cerebral hemisphere consistent with a large acute infarct in the distribution of the right middle cerebral artery. Mass effect is produced approximately 4 mm of midline shift right to left. There is some mild effacement of the right side of the suprasellar cistern. There is increased attenuation within the region of the right middle cerebral artery likely representing thrombus. There is some effacement of the right lateral and thirdventricles due to the mass effect related to the acute infarct. The left lateral and fourth ventricles are within normal limits in size. No definite areas of abnormal attenuation within the left cerebral hemisphere. Bone window images are negative for depressed skull fracture. When comparison is made to the previous study of 19 October 2022 there has been progression of the acute infarct in the right middle cerebral artery distribution which is larger in size and with new mass effect and midlineshift. IMPRESSION: Findings consistent with a large acute area of infarction in the right cerebral hemisphere in the distribution of the right middle cerebral artery with mass effect and approximately 4 mm of midline shift right to left. There is no definite hemorrhagic transformation. There is hyperdensity of the right middle cerebral artery likely representing thrombus. Clinical correlation and continued close interval follow-up are recommended. Results discussed with the stroke team physician, Dr. Stephanie Hester, on 20 October 2022 approximately 1225 hours. > Interpreting Provider: Joni Fabian MD on 10/20/2022 12:[address] ANGIO BRAIN NECK STROKE Result Date: 10/19/2022 PROCEDURE: CT ANGIO BRAIN NECK STROKE, DATE/TIME OF EXAM: 10/19/2022 8:16 AM, LOCATION [facility] INDICATION: Code Stroke ADDITIONAL CLINICAL INFORMATION: Ordering Provider Reason For Exam: Technologist Note: Additional: EXAMINATION: 1. Computed tomographic (CT) angiography of the head with contrast 2. CT angiography of the neck with contrast TECHNIQUE: CT angiography of the headand neck was obtained after the uneventful administration [...] a concurrent noncontrasted head CT for detailed intracranialfindings including findings suggesting an acute right MCA [...] artery. A small early M2 segment is patent . There is reconstitution of some distal right MCA branches. The left MCA is patent. The posterior cerebral arteries are patent. The distal vertebral arteries are patent. The basilar artery is patentpatent. 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 IMPRESSION: 1. [...] Lonnie Rae MD on 10/19/2022 8:[address] BRAIN - Stroke Result Date: 10/19/2022 PROCEDURE: CT BRAIN STROKE, DATE/TIME OF EXAM: 10/19/2022 8:04 AM, LOCATION [facility] INDICATION: Code Stroke ADDITIONAL CLINICAL INFORMATION: Ordering [...] of scott-white matter differentiation in the right frontotemporallobes and the right insula, concerning for an acute infarct. There is suggestion of a hyperdense rig ht MCA likely represent acute thrombus (series 5 image 25). No acute intracranial hemorrhage or intra- or extra-axial fluid collections are identified. The ventricles are of normal size, shape, and morphology. The basal cisterns are patent. No mass effect or midline shift is seen. The scott-white mat ter differentiation is normal. The visualized portions of [...] Lonnie Rae MD on 10/19/2022 8:15 AM Right middle cerebral artery stroke (CMS/HCC) (POA: Unknown) Acute cerebrovascular accident (CVA) due to embolism of right middle cerebral artery (CMS/HCC) (POA: Yes) Nihss score 9 (POA: Yes) Received intravenous tissue plasminogen activator (tPA) in emergency department (POA: Yes) GERD (gastroesophageal reflux disease) (POA: Yes) Hemianopsia (POA: Yes) Weakness (POA: Yes) Left-sided sensory deficit present (POA: Yes) Gaze palsy (POA: Yes) Migraine (POA: Unknown) Hypertension (POA: Unknown) Presence of externally removable percutaneous endoscopic gastrostomy (PEG) tube (CMS/HCC) (POA: Unknown) Assessment Consuelo Dayami Darby??is a 41 year old??female who??presented on 10/19 with Right MCA syndrome ??s/p TNK. CTA 1 M1 occlusion. S/P mechanical thrombectomy with R M1 recanalization and TICI2b. CT 10/20/22 with edema and mild shift. S/P decompressive right hemicraniectomy. Echo showed a??mobile??aortic valve vegetation.??MRI brain with scattered cortical R hemisphere infarcts with petechiae. Pt febrile and being evaluated. ID following. ?? Stroke Type:??Ischemic Stroke Mechanism:??Cardioembolic Plan TIA/Stroke Workup; active -R M1 ischemic stroke; active - s/p TICI2b revascularization, TNK - s/p decompressive hemicrani on 10/20 for malignant MCA - HbA1C: 6.0, LDL: 91, Cardiac Enzymes; wnl - atorvastatin 80 mg - On heparin now but started warfarin bridge??(pharmacy managing) INR goal 2-3 ?? Core Measures TNK??administration: yes Anti-thrombotic: holding while on AC Statin:??atorvastatin 80mg DVT prophylaxis:??heparin gtt + warfarin bridge PEG tube ?? Migraine - verapamil 40 TID ?? GENESIS - cont home amitriptyline ?? 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 - Cardiology will repeat SARAH OP setup after completing abx. ?? Fever - Blood cx still negative, - d-dimer high,??US extremities b/l UE??shows superficial thrombus in cephalic veins - ID on board. - Continuing IV vancomycin + cefepime (10/25 - EOT 11/22; meningitis dosing), doxycyline (11/05 - EOT 12/03) - Added flagyl 11/10 (pharmacy aware to manage warfarin with it) - CT abd shows concerns for abscess under peg and hematoma over femoral vessels underwent procedureon 11/10 - Cardiology, IR, vascular surgery, acute care surgery aware - GI consulted: ok to start feeds ? 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 HTN - home metop Transamnitis - Continuing to trend LFTs ?? Blood Pressure Goals: SBP <160, map >70 ?? Vit D deficiency - Vit D 2,000 U daily Failed void trial - Urology following and will have outpatient trial in 1 month ? Individual Modifiable Risk Factors Hypertension:??no Hyperlipidemia:??no Diabetes:??no Atrial Fibrillation:??no Tobacco:??no ?? Family updated this morning. ?? Case findings discussed with Dr. Antunez, Stroke Attending. Karishma Ojeda MD Neurology Resident * Sindhu Sam MD - 11/11/2022 1:44 PM CDT Images from the original note were not included. Acute Care Surgery Progress Note Consuelo Darby Age: [age] year old female Date of : 1980 Admit Date: 10/19/2022 Admitting Physician: Good Antunez MD SUBJECTIVE History of Present Illness: Consuelo Darby is a 42 year old female who presented on 10/19/2022??as code stroke due to acute onset left sided weakness, left sided sensory deficits, and dysarthria. ??Found to have right MCA occulusion. She was taken to the OR for right decompressive hemicraniectomy on 10/20/2022. Patient also underwent to throbectomy on 10/30. She was noted to have high grade fevers on 11/03 and now on vanc, cefepime, and doxy. ?? ACS consulted on 11/10/22 for 2cm rim-enhancing collection along inferior aspect of gastrostomy tube with small locule of gas seen on CT, concerning for possible gastric erosion by gastrostomy tube bumper. Interval: [place] a EGD, percutaneous gastropexy with retention sutures on 11/10/22. Noted to have small erosion behind gastric bumper without signs of gastric perforation. She appears to be doing well this AM with no acute post-operative concerns. Medications: Current Facility-Administered Medications Medication ??? 0.9% NaCl infusion rate and volume ??? 0.9% NaCl injection 10-40 mL ??? 0.9% NaCl injection 10-40 mL ??? 0.9% NaCl injection 3 mL And ??? 0.9% NaCl injection 3 mL ??? acetaminophen (Tylenol) tablet 650 mg ??? atorvastatin (Lipitor) tablet 80 mg ??? bisacodyl (Dulcolax) suppository 10 mg ??? cefepime (Maxipime) 2,000 mg in 0.9% NaCl IV 50 mL IVPB ??? diphenhydrAMINE (Benadryl) injection 25 mg ??? diphenhydrAMINE-zinc acetate (Benadryl Extra Strength) 2-0.1 % cream ??? doxycycline monohydrate capsule 100 mg ??? fentaNYL (PF) (Sublimaze) injection 25 mcg ??? fentaNYL (PF) (Sublimaze) injection 50 mcg ??? gadobutrol (Gadavist) injection ??? guaiFENesin (Robitussin) solution 10 mL ??? heparin 100 units/mL in dextrose 5 % infusion ??? HYDROmorphone (Dilaudid) injection 0.5 mg ??? loratadine (Claritin) tablet 10 mg ??? metoclopramide (Reglan) injection 10 mg ??? metoprolol tartrate IR (Lopressor) tablet 25 mg ??? metroNIDAZOLE (Flagyl) 500 mg in 100 mL IVPB ??? naloxone (Narcan) injection 0.04 mg ??? oxyCODONE (immediate release) (Roxicodone) tablet 5 mg ??? pantoprazole (Protonix) injection 40 mg ??? perflutren lipid microsphere (Definity) injection 0.5 mL ??? polyethylene glycol 3350 (Miralax) packet 17 g ??? prochlorperazine (Compazine) injection 10 mg ??? senna-docusate (Senokot-S) tablet 2 tablet ??? tamsulosin (Flomax) capsule 0.4 mg ??? throat lozenge 1 lozenge ??? vancomycin (Vancocin) 1,500 mg in 500 mL NaCl IVPB Premix ??? vancomycin (Vancocin) IV dose per pharmacy ??? verapamil (Isoptin) tablet 40 mg ??? vitamin D3 (Cholecalciferol) 25 MCG (1000 UNITS) tablet 2,000 Units ??? warfarin (Coumadin) dose per pharmacy OBJECTIVE Vitals: 11/11/22 0453 11/11/22 0815 11/11/22 1311 11/11/22 1631 BP: 120/69 131/91 123/78 124/76 Pulse: 77 90 84 83 Resp: 18 18 18 Temp: 97.5 ??F (36.4 ??C) 98.8 ??F (37.1 ??C) 98.3 ??F (36.8 ??C) SpO2: 97% 98% 96% 98% Weight: Height: Temp (24hrs), Av.3 ??F (37.4 ??C), Min:97.5 ??F (36.4 ??C), Max:102 ??F (38.9 ??C) Systolic (36hrs), Av , Min:103 , Max:138 Diastolic (36hrs), Av, Min:41, Max:91 Estimated body mass index is 36.05 kg/m?? as calculated from the following: Height as of this encounter: 1.626 m (5' 4 ). Weight as of this encounter: 95.3 kg (210 lb). PREVIOUS WEIGHTS: Wt Readings from Last 5 Encounters: 11/06/22 95.3 kg (210 lb) 11/09/22 95.3 kg (210 lb 1.6 oz) 10/23/22 95.3 kg (210 lb) 02/08/22 93.3 kg (205 lb 11.2 oz) 08/25/21 84.8 kg (187 lb) Physical Examination: Gen: NAD, limited verbal responses HEENT: s/p hemicraniectomy CV: RRR Pulm: Nonlabored respirations Abd: Soft, NT, ND, PEG tube in place with retention sutures. No surrounding erythema or drainage. MSK: WWP, no c/c/e Neuro: Limited verbal response Psych: Appropriate mood and affect Data Review: Labs: CBC Recent Labs Component Name 11/10/22233711/10/2222311/08/22234511/07/222233 WBC 7.1 3.6 5.2 4.7 HGB 9.5* 9.4* 10.4* 9.2* HCT 29.7* 29.4* 33.1* 29.5* PLTCOUNT 297 302 360 325 BMP Recent Labs Component Name 11/10/2222211/08/22234511/07/222233 08/28/23 2312 NA 136 141 141 140 POTASSIUM 3.6 3.9 3.6 3.6 CL 105 107 108* 108* CO2 24 24 22 22 BUN 13 9 8 8 CREATININE 0.52* 0.45* 0.53* 0.46* GLUCOSE 120* 107 107 107 CALCIUM 8.4 8.5 8.6 8.5 MAGNESIUM 2.0 2.0 2.8* 2.0 PHOS 3.9 3.8 4.3 4.3 LFTs Recent Labs Component Name 11/09/22 0654 10/19/22 0824 06/15/22 0757 12/09/18 0812 PROT 7.3 7.7 7.5 - ALB 2.6* 3.5 3.6 - TBILI 0.3 0.1* 0.1* - ALT 77* 16 9 17 AST 67* 19 17 18 ALKPHOS 73 52 44 56 Coag Recent Labs Component Name 11/11/22 0928 11/10/22 23311/10/2222211/09/22 0237 11/07/22 0305 11/06/22 23111/06/22 1830 PT 16.2* 15.6* 20.5* 18.9* - - - PTT 129.8* 36.3 - - - 63.4* 68.6* INR 1.3 1.3 1.8 1.6 - - - - = values in this interval not displayed. Urine: UA Recent Labs Component Name 11/10/2222211/08/22234511/07/22 2234 11/06/22 23111/06/22 0136 11/05/22 1254 10/28/22 0125 10/27/22 1208 COLORU - - - - - Yellow - Yellow CLARITYU - - - - - Slt Cloudy* - Slt Cloudy* KETONES - - - - - Negative - Negative BILIRUBINUR - - - - - Negative - Negative BLOODU - - - - - 1+* - Negative EGFR >90 >90 >90 >90 - - - - NITRITE - - - - - Negative - Negative WBCU - - - - - 6-10* - - URINEBACT - - - - - Trace* - - - = values in this interval not displayed. Radiology Impressions: MRI BRAIN WWO CONTRAST Result Date: 11/10/2022 IMPRESSION: 1. Redemonstration of postsurgical changes from right decompressive hemicraniectomy andevolving large volume right MCA territory infarct as described above. Mild interval increase in thecaliber of lateral and third ventricles could be secondary to decreased mass effect, less likely hyd rocephalus, continued attention recommended on follow-up. 2. Interval [...] the extra-axial fluid collection overlying the craniectomy sitecould be secondary to evolving blood products/postsurgical changes versus secondary to superimposedinfection, clinical correlation is recommended. CT ABDOMEN PELVIS W CONTRAST Result Date: 11/10/2022 IMPRESSION: 1. Progressive soft tissue stranding with gas in the right inguinal region with an inflammatory mass encasing the right femoral vessels with mild narrowing of the femoral artery and moderate narrowing of the femoral vein. This could represent a postsurgical hematoma. Recommend correlation with symptoms and signs of superinfection. 2. Interval placement of a gastrostomy tube with a smal l gas and fluid collection along the inferior aspect of the gastrostomy tube insertion site and stomach, measuring 2.2 cm. Assessment and Plan: Consuelo Darby is a 42 year old female with concern for possible gastric erosion by gastrostomy tube bumper who is now s/p EGD, percutaneous gastropexy with retention sutures on 11/10/22. She was noted to have small erosion behind gastric bumper. She is recovering well. - OK to intiate anticoagulation with Heparin, warfarin may be initiated later today if no signs of bleeding on clinically or on H&H - OK for medications per g-tube. - Can initiate tube feeds today. Please follow nutrition service recommendations. - Continue abx to treatment for emperic treatment for perigastric fluid collection for 5 days. - Continue Protonix 40mg - Please page [facility] for any additional concerns regarding PEG tube or for concern for dislodgement. - Remainder of care per primary team Sindhu Sam MD PGY-1 11/11/2022 Associated attestation - Ambrocio Bond MD - 11/12/2022 1:49 PM CDT Patient seen and examined with residents. I confirm the examination, assessment and plan unless otherwise noted. * Haleigh Narayan - 11/11/2022 12:[address] [facility] Occupational Therapy Splint Check Note Patient Name Consuelo Darby Date of 1980 Age [age] year old Type of Splint: L resting hand and L foot drop Splint Issued by: Not applicable-follow up visit Splint Check Completed: No issues noted. Skin intact and splint fitting appropriately on LLE. L resting hand doffed upon arrival. Pt tolerated PROM of digits and splint donned with no issues noted. Treatment Plan: Will continue to monitor splint while patient in hospital. 11/11/2022 * Michelle Arce RN - 11/11/2022 10:58 AM CDT Stroke Team informed that patient blood culture and others stat labs have not been collected by thelab. RN have called the lab several times and remains them that the patient's lab need to be collected * Donya Ho MD - 11/11/2022 9:25 AM CDT GI Consult Progress Note Subjective: Interval History: Patient went for OR procedure yesterday with EGD and percutaneous gastropexy with retention suturesby [facility] team. She tolerated the procedure well. No acute events overnight otherwise. Hospital course: 41 year old??female??with PMH of HTN, migraine, GERD, presented on??10/19/2022??as code stroke due to acute onset left sided weakness, left sided sensory deficits, and dysarthria. We were consulted for oropharyngeal dysphagia and placed a PEG tube on 11/01. Patient has had recurrent fevers prompting ID consult. She had CT scan for further evaluation with concern for abscess at inferior aspect of PEG tube for which we are re-consulted. Patient not having pain at site. Vitals are stable but with recurrent fevers. Objective: Physical Exam: BP 131/91 Pulse 90 Temp 97.5 ??F (36.4 ??C) Resp 18 Ht 1.626 m (5' 4 ) Wt 95.3 kg (210 lb) SpO2 98% Wt Readings from Last 3 Encounters: 11/06/22 95.3 kg (210 lb) 11/09/22 95.3 kg (210 lb 1.6 oz) 10/23/22 95.3 kg (210 lb) General: no distress HEENT: conjunctivae/corneas clear Neck: supple Lungs: no increased work of breathing Heart: Normal rate Abdomen: soft, non-tender, non-distended. PEG tube in place and sutures noted on both sides Rectal: deferred Extremities: no edema Neuro: alert Labs: Recent Labs Component Name 11/10/22 2338 11/10/224 11/10/2222211/09/22 0237 11/08/22 2346 11/08/22 0254 11/07/22 2234 11/07/22 0305 11/06/22 2312 10/23/22 0129 10/22/22 0153 WBC 7.1 3.6 - - 5.2 - 4.7 - 4.7 - - HGB 9.5* 9.4* - - 10.4* - 9.2* - 9.3* - - MCV 92.2 91.0 - - 92.2 - 92.8 - 92.2 - - PLT - - - - - - - - - - 199 INR 1.3 - 1.8 1.6 - 1.6 - 1.6 - - - - = values in this interval not displayed. Recent Labs Component Name 11/10/2211/08/23 2346 11/07/22 2234 NA 136 141 141 CL 105 107 108* CO2 24 24 22 BUN 13 9 8 CREATININE 0.52* 0.45* 0.53* Recent Labs Component Name 11/09/22 0654 10/19/22 0824 06/15/22 0757 AST 67* 19 17 ALT 77* 16 9 ALKPHOS 73 52 44 TBILI 0.3 0.1* 0.1* ALB 2.6* 3.5 3.6 Further workup: MRI BRAIN WWO CONTRAST Result Date: 11/10/2022 IMPRESSION: 1. Redemonstration of postsurgical changes from right decompressive hemicraniectomy andevolving large volume right MCA territory infarct as described above. Mild interval increase in thecaliber of lateral and third ventricles could be secondary to decreased mass effect, less likely hyd rocephalus, continued attention recommended on follow-up. 2. Interval [...] the extra-axial fluid collection overlying the craniectomy sitecould be secondary to evolving blood products/postsurgical changes versus secondary to superimposedinfection, clinical correlation is recommended. These findings were discussed with patient's care provider, Dr. Tucker, stroke team, by on 11/10/2022 11:59 AM with read back verification. > Interpreting Provider: Oriana Suarez MD on 11/10/2022 12:[address] ABDOMEN PELVIS W CONTRAST Result Date: 11/10/2022 IMPRESSION: 1. Progressive soft tissue stranding with gas in the right inguinal region with an inflammatory mass encasing the right femoral vessels with mild narrowing of the femoral artery and moderate narrowing of the femoral vein. This could represent a postsurgical hematoma. Recommend correlation with symptoms and signs of superinfection. 2. Interval placement of a gastrostomy tube with a smal l gas and fluid collection along the inferior aspect of the gastrostomy tube insertion site and stomach, measuring 2.2 cm. Findings communicated with Dr. Goyal at 2005 hours on 11/09/2022 > Interpreting Provider: Pepe Gonzalez MD on 11/10/2022 12:[address] ANGIO CHEST PULM EMBOLISM Result Date: 11/07/2022 Impression: 1.No evidence of acute pulmonary embolism. There is no radiographic evidence of right heart strain. 2.No other acute process within the chest. > Dictated by Tim Major MD (resident services coordinator). IAlexx have personally reviewed and interpreted this examination/study. > Interpreting Provider: Alexx Lopez on 11/07/2022 10:30 PM IR INTRACRANIAL MECH THROMBECT Result Date: 11/07/2022 Impression: 1. TICI2b revascularization of the R MCA M1 occlusion. Location of Clot: Right M1 segment Initial TICI: 0 Final TICI: 2b I, Dr. Jim Walter, was present and performed/supervised theentire procedure. IJim MD have personally reviewed and interpreted this examination/study. > Interpreting Provider: Jim Walter MD on 11/07/2022 9:21 AM XR ABDOMEN KUB PORTABLE Result Date: 11/06/2022 IMPRESSION: Non-obstructive bowel gas pattern. Report dictated by Mc Castro MD, (resident services coordinator). Pepe Ornelas MD have personally reviewed and interpreted this examination/study. > Interpreting Provider: Pepe Gonzalez MD on 11/06/2022 10:[address] HEAD WO CONTRAST Result Date: 11/05/2022 IMPRESSION: 1. Redemonstration of post surgical changes from decompressive hemicraniectomy and evolving large right MCA territory subacute infarct. Interval increased linear hyperdense foci along thecortex of right frontal and parietal lobes could be secondary to evolving cortical laminar necrosisversus developing petechial hemorrhages. Continued attention recommended on short-term follow-up. However no hematoma noted. No evidence of midline shift. These findings were discussed with patient'scare provider, Dr. Roth with neurology, by on 11/05/2022 5:46 PM with read back verification. > Interpreting Provider: Oriana Suarez MD on 11/05/2022 5:[address] ABDOMEN WO CONTRAST Result Date: 11/02/2022 Impression: Interval placement of a percutaneous gastrostomy tube with intraluminal placement of tip and inflated balloon within the body/antrum of the stomach without complication, as clinically queried.. > Dictated by Tim Major MD (resident services coordinator). I, Pepe Gonzalez MD have personallyreviewed and interpreted this examination/study. > Interpreting Provider: Pepe Gonzalez MD on 11/02/2022 1:[address] ABDOMEN PELVIS W CONTRAST Result Date: 10/31/2022 Impression: 1.Interval postsurgical changes to the distal right external iliac/proximal right common femoral arteries with previously seen thrombus in this region no longer visualized. There is however irregularity of the artery in this region with mild narrowing which is favored to represent postsurgical changes. Questionable flap within the proximal common femoral artery as detailed above. 2.Extensive soft tissue stranding, edema and fluid along with subcutaneous gas in the right groin likelyrepresenting postsurgical changes. Although there is focal fluid in this region, no rim-enhancing drainable fluid collections are appreciated at this time. > Interpreting Provider: Alexx Lopez on 10/31/2022 11:[address] HEAD WO CONTRAST Result Date: 10/31/2022 IMPRESSION: Compared to prior head CT 10/28/2022: 1.Re-demonstrated postsurgical changes of decompressive right frontoparietotemporal craniectomy with multiple overlying scalp carla. Evolving heterogeneous subdural hematoma along the right frontotemporal convexity measuring up to 8 mm in maximal thickness (5/32), previously measuring up to 9 mm in thickness. 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 Increased conspicuity of a thin hyperdensity along the cortex within this region suggestive of evolving cortical laminar necrosis. 3.Re-demonstrated small hypodensity of the left inferior frontal gyrus/frontal operculum, consistent with an evolving [id number] infarct. 4.No significant midline shift. Similar-appearing size and configuration of the ventricles without evidence of hydrocephalus. Basal cisterns are patent. 5.No other convincing change. Partially imaged left nasoenteric tube. > Interpreting Provider: Amanda Real MD, PhD on 10/31/2022 1:[address] HEAD WO CONTRAST Result Date: 10/28/2022 IMPRESSION: 1. Evolving right MCA subacute infarct status post decompressive craniectomy. Grossly unchanged right frontotemporal subdural hemorrhage. Grossly unchanged gyriform hyperdensity in the infarcted area may represent subarachnoid hemorrhage. No midline shift. Unchanged mildly dilated ventricles may represent mild hydrocephalus. 2. Unchanged small focus of hypoattenuation in the left frontal lobe likely represents additional subacute infarct. The report is dictated by Kayla Stevenson MD (resident services coordinator) 1 Lonnie Ornelas MD have personally reviewed and interpreted this examination/study. > Interpreting Provider: Lonnie Rae MD on 10/28/2022 9:[address] HEAD WO CONTRAST Result Date: 10/27/2022 IMPRESSION: 1. Redemonstration of evolving right MCA subacute infarct, status post right decompressive craniectomy. The extra-axial hematoma underlying the craniectomy site and subarachnoid hemorrhage in the right cerebral sulci are grossly unchanged. Mass effect on the right lateral ventricle is unchanged. No significant midline shift. 2. Small focus of likely a subacute infarct in the left frontal lobe is unchanged. > Interpreting Provider: Lonnie Rae MD on 10/27/2022 12:[address] HEAD WO CONTRAST Result Date: 10/26/2022 IMPRESSION: 1. Redemonstration of evolving large right MCA territory acute to subacute infarct without definite evidence of hemorrhagic transformation. Unchanged minimal leftward midline shift of about 2 mm at the level of foramen of Monro and effacement of the left lateral ventricle. 2. Redemonstration of postsurgical changes from right-sided decompressive hemicraniectomy, unchanged compared to prior study. These results were discussed with stroke resident Dr Mendez by Dr. Miranda Bowen at8:05 AM on 10/26/2022 with read back confirmation and closed-loop communication. The report is dictated by Miranda Bowen MD (resident services coordinator) Oriana Ornelas MD have personally reviewed and interpreted this examination/study. > Interpreting Provider: Oriana Suarez MD on 38:[address] CHEST ABDOMEN PELVIS W CONT Result Date: 10/25/2022 Impression: 1.Occlusion of the right distal external [...] verification. > Dictated by Clarisa Cantrell MD (resident services coordinator). IAlexx have personally reviewed and interpreted this examination/study. > Interpreting Provider: Alexx Lopez on 10/25/2022 4:[address] HEAD WO CONTRAST Result Date: 10/25/2022 IMPRESSION: Redemonstrated postoperative changes consistent with right calvarial hemicraniectomy. Fluid collection overlying the lateral right cerebral hemisphere within the craniectomy defect containing some recent blood products. The overall size of this fluid collection is less than on previous study. In addition, there is less air/gas within this defect. Evolving large recent right cerebral hemisphere infarct with mass effect and approximately 2 mm of midline shift right to left. There appears to be slightly less mass effect and midline shift on today's study. Continued follow-up is recommended. Small recent cortical infarct in the lateral left frontal lobe as well as small recent infarc t in left martínez radiata which appears similar to previous study. Clinical correlation recommended.The report is dictated by Miranda Bowen MD (resident services coordinator) Joni Ornelas MD have personally reviewed and interpreted this examination/study. > Interpreting Provider: Joni Fabian MD on 10/25/2022 2:[address] CARDIAC ANGIO STRUCT MORPH Result Date: 10/25/2022 Impression: 1. 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 2. Patent coronary vessels within the limitation of the motion artifact given the elevated heart during this exam > Interpreting Provider: Pepe Gonzalez MD on 10/25/2022 12:03 AM MRI BRAIN WWO CONTRAST Result Date: 10/24/2022 IMPRESSION: 1.Redemonstration of postoperative changes of a right hemicraniectomy with expected postsurgical changes as outlined above. 2.Redemonstration of evolving large right MCA territory infarction with extensive cytotoxic edema and mild external herniation of the brain through the craniectomydefect. Persistent local mass effect on the right cerebral hemisphere, effacement of the right lateral ventricle, and approximately 3-4 mm [id number] midline shift, grossly similar to the prior. 3.Mild dilation of the left lateral ventricle may represent subtle left ventricular entrapment, overall grossly similar to prior. 4.Additional multiple foci of abnormal diffusion within the left frontotemporal lobes with associated T2 FLAIR hyperintensity representing additional small acute to subacute infarcts, likely of cardioembolic etiology. Findings communicated to Dr. Mohr by Dr. Major at 1138 hours on 10/24/2022 with readback comprehension and verification. Report dictated by Tim Major MD (resident services coordinator). Jasper Ornelas MD have personally reviewed and interpreted this examination/study. > Interpreting Provider: Jasper Sifuentes MD on 10/24/2022 1:[address] HEAD WO CONTRAST Result Date: 10/23/2022 IMPRESSION: 1.Redemonstration of postsurgical changes of decompressive craniectomy and evolving right middle cerebral artery territory infarct. 2.No hemorrhagic transformation. 3.Extensive cytotoxic edema and mass effect with approximately 2 mm midline shift, [place] similar or slightly improved from prior. 4.Stable right intracranial pressure monitor. The report is dictated by Miranda Bowen MD(resident services coordinator) Jasper Ornelas MD have personally reviewed and interpreted this examination/study. > Interpreting Provider: Jasper Sifuentes MD on 10/23/2022 9:[address] HEAD WO CONTRAST Result Date: 10/22/2022 IMPRESSION: 1.Redemonstration of postsurgical changes of decompressive right hemicraniectomy for evolving right middle cerebral artery territory infarct. There is significant edema and mass effect with approximately 4 mm of midline shift, unchanged from prior. No evidence of new acute intracranial hemorrhage. > Interpreting Provider: Lonnie Rae MD on 10/22/2022 3:[address] HEAD WO CONTRAST Result Date: 10/22/2022 IMPRESSION: 1.Stable appearance of postsurgical changes of decompressive right hemicraniectomy for evolving right middle cerebral artery territory infarct. There is significant edema and mass effect with approximately 4 mm of midline shift, unchanged from prior. No evidence of new acute intracranial hemorrhage. Report dictated by Lorenzo Horta MD (nursing resident). Lonnie Ornelas MD have personally reviewed and interpreted this examination/study. > Interpreting Provider: Lonnie Rae MD on 10/22/2022 3:[address] HEAD WO CONTRAST Result Date: 10/20/2022 IMPRESSION: Interval postsurgical changes of decompressive right hemicraniectomy with ICP monitor and subdural drain in place. 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 > Dictated by Bassam Jovel M.D. (nursing resident) Gonzalez Ornelas MD have personally reviewed and interpreted this examination/study. > Interpreting Provider: Gonzalez Velasco MD on 10/20/2022 11:[address] HEAD NON CONTRAST Result Date: 10/20/2022 IMPRESSION: Findings consistent with a large acute area of infarction in the right cerebral hemisphere in the distribution of the right middle cerebral artery with mass effect and approximately 4 mm of midline shift right to left. There is no definite hemorrhagic transformation. There is hyperdensity of the right middle cerebral artery likely representing thrombus. Clinical correlation and continued close interval follow-up are recommended. Results discussed with the stroke team physician, Dr. Stephanie Hester, on 20 October 2022 approximately 1225 hours. > Interpreting Provider: Joni Fabian MD on 10/20/2022 12:[address] ANGIO BRAIN NECK STROKE Result Date: 10/19/2022 IMPRESSION: 1. Occlusion of the distal M1 [...] Lonnie Rae MD on 10/19/2022 8:[address] BRAIN - Stroke Result Date: 10/19/2022 IMPRESSION: 1. No acute intracranial hemorrhage. 2. [...] Lonnie Rae MD on 10/19/2022 8:15 AM Procedure and Consults [facility] (From admission, onward) Start Ordered 11/10/22 1245 IP CONSULT TO INTERVENTIONAL RADIOLOGY ONCE Provider: (Not yet assigned) 11/10/22 1233 11/10/22 1215 IP CONSULT TO GENERAL SURGERY ONCE Provider: (Not yet assigned) 11/10/22 1215 11/10/22 1215 IP CONSULT TO VASCULAR SURGERY ONCE Provider: (Not yet assigned) 11/10/22 1215 11/09/[address] ABDOMEN PELVIS W CONTRAST RAD ONE TIME 11/09/22 1156 11/09/22 1130 MRI BRAIN WWO CONTRAST RAD ONE TIME 11/09/22 1117 11/09/22 0730 IP CONSULT TO UROLOGY ONCE Provider: (Not yet assigned) 11/09/22 0718 11/07/[address] ANGIO CHEST PULM EMBOLISM RAD ONE TIME 11/07/22 1403 11/05/22 1700 XR ABDOMEN KUB PORTABLE RAD ONE TIME 11/05/22 1647 11/05/22 0930 XR CHEST 1VW PORTABLE RAD ONE TIME 11/05/22 0926 11/04/[address] HEAD WO CONTRAST RAD ONE TIME 11/04/22 1524 11/01/[address] ABDOMEN WO CONTRAST RAD ONE TIME 11/01/22 1518 10/31/[address] ABDOMEN PELVIS W CONTRAST RAD ONE TIME 10/31/22 0925 10/30/[address] HEAD WO CONTRAST RAD ONE TIME 10/30/22 1906 10/29/22 1030 IP CONSULT TO GASTROENTEROLOGY ONCE Provider: (Not yet assigned) 10/29/22 1017 10/29/22 1015 XR CHEST 1VW PORTABLE RAD ONE TIME 10/29/22 1001 10/28/22 2245 XR ABDOMEN KUB RAD ONE TIME 10/28/22 2237 10/28/22 0200 XR ABDOMEN KUB PORTABLE RAD ONE TIME 10/28/22 0150 10/27/22 1745 IP CONSULT TO FARM CONTRACTOR ONCE Provider: (Not yet assigned) 10/27/22 1733 10/27/[address] HEAD WO CONTRAST RAD ONE TIME 10/27/22 1635 10/27/22 0900 XR CHEST 1VW PORTABLE RAD ONE TIME 10/27/22 0858 10/27/22 0730 FL GLENN W ANGIO TEAM RAD ONE TIME 10/27/22 0718 10/26/[address] HEAD WO CONTRAST RAD ONE TIME 10/26/22 1119 10/25/[address] HEAD WO CONTRAST RAD ONE TIME 10/25/22 1524 10/25/[address] HEAD WO CONTRAST RAD ONE TIME 10/25/22 1155 10/25/[address] CHEST ABDOMEN PELVIS W CONT RAD ONE TIME 10/25/22 1155 10/25/22 0915 XR CHEST 1VW PORTABLE RAD ONE TIME 10/25/22 0903 10/24/22 1345 XR ABDOMEN KUB PORTABLE RAD ONE TIME 10/24/22 1341 10/23/22 1400 MRI BRAIN WWO CONTRAST RAD ONE TIME 10/23/22 1355 10/23/[address] CARDIAC ANGIO STRUCT MORPH RAD ONE TIME 10/23/22 1356 10/23/22 1400 IP CONSULT TO CARD SURGERY - CARDIAC TEAM ONCE Provider: (Not yet assigned) 10/23/22 1359 10/23/22 1045 IP CONSULT TO RHEUMATOLOGY ONCE Provider: (Not yet assigned) 10/23/22 1031 10/23/22 1030 XR ABDOMEN KUB PORTABLE RAD ONE TIME 10/23/22 1020 10/23/22 0800 XR CHEST 1VW PORTABLE RAD ONE TIME 10/23/22 0808 10/22/[address] HEAD WO CONTRAST RAD ONE TIME 10/22/22 1341 10/22/[address] HEAD WO CONTRAST RAD ONE TIME 10/22/22 0853 10/21/[address] HEAD WO CONTRAST RAD ONE TIME 10/21/22 0858 10/21/22 0815 XR CHEST 1VW PORTABLE RAD ONE TIME 10/21/22 0812 10/20/22 2215 IP CONSULT TO NUTRITIONAL SERV ONCE Provider: (Not yet assigned) 10/20/22 2215 10/20/[address] HEAD WO CONTRAST RAD ONE TIME 10/20/22 2041 10/20/22 1200 XR ABDOMEN KUB PORTABLE RAD ONE TIME 10/20/22 1151 10/20/22 0915 IP CONSULT TO NEUROSURGERY ONCE Provider: (Not yet assigned) 10/20/22 0914 10/19/[address] HEAD NON CONTRAST RAD ONE TIME 10/19/22 0902 10/19/22 0900 IP CONSULT TO FARM CONTRACTOR ONCE Provider: (Not yet assigned) 10/19/22 0902 10/19/22 0900 IP CONSULT TO CASE MANAGEMENT ONCE Provider: (Not yet assigned) 10/19/22 0902 10/19/22 0900 IP CONSULT TO NUTRITIONAL SERV ONCE Provider: (Not yet assigned) 10/19/22 0902 10/19/22 0900 CONSULT TO REHAB ONCE Provider: (Not yet assigned) 10/19/22 0902 10/19/22 0845 IR INTRACRANIAL MECH THROMBECT RAD ONE TIME 10/19/22 0843 10/19/22 0800 CONSULT TO RECOVERY AUDITOR ONCE Provider: (Not yet assigned) 10/19/22 0756 10/19/[address] BRAIN - Stroke RAD ONE TIME 10/19/22 0756 10/19/[address] ANGIO BRAIN NECK STROKE RAD ONE TIME 10/19/22 0756 Report Endoscopy POC Date Value Ref Range Status 2022 Final Endoscopy Department Report _ Patient Name: Consuelo Darby Procedure Date: 2022 2:14 PM Date of : 1980 Classification: Inpatient Gender: Female Ethnicity: Not or Race: White _ Providers: Khanh Metz MD, Jerod Calderon (Fellow) Referring MD: Procedure: Upper GI endoscopy Indications: Oropharyngeal phase dysphagia, Place PEG due to neurological disorder causing impaired swallowing Medications: Monitored Anesthesia Care Description of Procedure: After obtaining informed consent, the endoscope was passed under direct vision. Throughout the procedure, the patient's blood pressure, pulse, and oxygen saturations were monitored continuously. The Endoscope was introduced through the mouth, and advanced to the second part of duodenum. The upper GI endoscopy was accomplished without difficulty. The patient tolerated the procedure well. Findings: A 1 cm hiatal hernia was present. The exam of the esophagus was otherwise normal. Erosive gastritis characterized by shallow ulcerations was found in the gastric body, c/w acute stress gastritis, mild. The exam of the stomach was otherwise normal. The examined duodenum was normal. The cardia and gastric fundus were normal on retroflexion. The patient was placed in the supine position for PEG placement. The stomach was insufflated to appose gastric and abdominal mejia. Multiple trials were required due to obesity in order to find a site was located in the body of the stomach with adequate transillumination and manual external pressure for placement. The abdominal wall was marked and prepped in a sterile manner. The area was anesthetized with 10 mL of 1% lidocaine. The trocar needle was introduced through the abdominal wall and into the stomach under direct endoscopic view. A snare was introduced through the endoscope and opened in the gastric lumen. The guide wire was passed through the trocar and into the open snare. The snare was closed around the guide wire. The endoscope and snare were removed, pulling the wire out through the mouth. A skin incision was made at the site of needle insertion. The externally removable 24 Fr Ramez-Cook gastrostomy tube was lubricated. The G-tube was tied to the guide wire and pulled through the mouth and into the stomach. The trocar needle was removed, and the gastrostomy tube was pulled out from the stomach through the skin. The external bumper was attached to the gastrostomy tube, and the tube was cut to remove the guide wire. The final position of the gastrostomy tube was confirmed by relook endoscopy, and skin marking noted to be 6 cm at theskin and 8 cm at the external bumper. The final tension and compression of the abdominal wall by the PEG tube and external bumper were checked and revealed that the bumper was loose and not touching the skin and that the PEG balloon was loose and not touching the stomach. The feeding tube was capped, and the tube site cleaned and dressed. Estimated Blood Loss: Estimated blood loss was minimal. Complications: No immediate complications. Impression: - 1 cm hiatal hernia. - Erosive stress gastritis. - Normal examined duodenum. - An externally removable PEG placement was successfully completed. Some difficuty encountered in finding a good location due to the thickness of the abdominal wall - No specimens collected. Recommendation: - CT scan (computed tomography) of the abdomen with contrast today to verify placemennt. - May use PEG for meds and H2O today. May resume TF's tomorrow after clearance by GI team. - IV PPI while in the hospital then po QD for 4 weeks - May resume Heparin today. Please avoid a loading dose if possible. Attending Participation: I was present and participated during the entire procedure, including non-darden portions. Procedure Code(s): --- Professional --- 94409, Esophagogastroduodenoscopy, flexible, transoral; with directed placement of percutaneous gastrostomy tube Diagnosis Code(s): --- Professional --- K44.9, Diaphragmatic hernia without obstruction or gangrene K29.60, Other gastritis without bleeding R13.12, Dysphagia, oropharyngeal phase R29.818, Other symptoms and signs involving the nervous system Z43.1, Encounter for attention to gastrostomy CPT copyright 2021 [employer]. All rights reserved. The codes documented in this report are preliminary and upon mold technician review may be revised to meet current compliance requirements. Khanh Metz MD 2022 3:26:58 PM Note Initiated On: 2022 2:14 PM Number of Addenda: [address] [id number] 08/25/2021 Final _ Patient Name: Consuelo Darby Procedure Date: 08/25/2021 9:58 AM Date of : 1980 Admit Type: Outpatient Age: 40 Room: ROOM 1 Gender: Female Attending MD: Sathya Foster MD _ Procedure: Colonoscopy Indications: High risk colon cancer surveillance: Personal history of colonic polyps, Last colonoscopy: 2011 Providers: Sathya Foster MD, Tia Rico RN, Zeinab Marina RN, Aminata Cain CRNA (Anesthesia Staff) Medicines: Propofol per Anesthesia Complications: No immediate complications. _ Estimated Blood Loss: Estimated blood loss: none. Procedure: Pre-Anesthesia Assessment: - Prior to the procedure, a History and Physical was performed, and patient medications and allergies were reviewed. The patient's tolerance of previous anesthesia was also reviewed. The risks and benefits of the procedure and the sedation options and risks were discussed with the patient. All questions were answered, and informed consent was obtained. Prior Anticoagulants: The patient has taken no previous anticoagulant or antiplatelet agents. ASA Grade Assessment: II - A patient with mild systemic disease. After reviewing the risks and benefits, the patient was deemed in satisfactory condition to undergo the procedure. After I obtained informed consent, the scope was passed under direct vision. Throughout the procedure, the patient's blood pressure, pulse, and oxygen saturations were monitored continuously. The Colonoscope was introduced through the anus and advanced to the terminal ileum. The terminal ileum, the appendiceal orifice and the rectum were photographed. The quality of the bowel preparation was good. Findings: The terminal ileum appeared normal. A few sessile polyps were found in the sigmoid colon. The polyps were small in size. These polyps were removed with a cold biopsy forceps. Resection and retrieval were complete. A few small-mouthed diverticula were found in the sigmoid colon. The exam was otherwise without abnormality. _ Impression: - The examined portion of the ileum was normal. - A few small polyps in the sigmoid colon, removed with a cold biopsy forceps. Resected and retrieved. - Diverticulosis in the sigmoid colon. - The examination was otherwise normal. Recommendation: - High fiber diet. - Continue present medications. - If the pathology report reveals adenomatous tissue, then repeat the colonoscopy for surveillance in 5 years. - Patient has a contact number available for emergencies. The signs and symptoms of potential delayed complications were discussed with the patient. Return to normal activities tomorrow. Written discharge instructions were provided to the patient. Procedure Code(s): --- Professional --- 52837, Colonoscopy, flexible; with biopsy, single or multiple --- Technical --- 33334, Colonoscopy, flexible; with biopsy, single or multiple Diagnosis Code(s): --- Professional --- Z86.010, Personal history of colonic polyps K63.5, Polyp of colon K57.30, Diverticulosis of large intestine without perforation or abscess without bleeding --- Technical --- Z86.010, Personal history of colonic polyps K63.5, Polyp of colon K57.30, Diverticulosis of large intestine without perforation or abscess without bleeding CPT copyright 2019 [employer]. All rights reserved. The codes documented in this report are preliminary and upon mold technician review may be revised to meet current compliance requirements. Sathya Foster MD 08/25/2021 10:19:15 AM This report has been signed electronically. Number of Addenda: 0 Note Initiated On: 08/25/2021 9:58 AM Date of Procedure Date Value Ref Range Status 02/08/2012 02/08/12 Final 09/23/2007 09/23/07 Final Final Diagnosis Date Value Ref Range Status 10/30/2022 Final Thrombus, right femoral, thrombectomy (A): - Thrombus 08/25/2021 Final A. Polyp, sigmoid colon, polypectomy: -- Hyperplastic polyp. -- No evidence of dysplasia, or malignancy. SD/scs 02/22/2012 Final Gallbladder, cholecystectomy: - Cholelithiasis and chronic cholecystitis KA/alj TUMOR BOARD: Negative Procedures: EGD w/ PEG tube placement on 11/01: Impression: ? - 1 cm hiatal??hernia. ? - Erosive stress gastritis. ? - Normal examined duodenum. ? - An externally removable PEG placement was ? successfully completed. Some difficuty encountered ? in finding a good location due to the thickness of ? the abdominal wall ? - No specimens collected. ?? Assessment: 41 year old??female??with PMH of HTN, migraine, GERD, presented on??10/19/2022??as code stroke due to acute onset left sided weakness, left sided sensory deficits, and dysarthria. We were consulted for oropharyngeal dysphagia and placed a PEG tube on 11/01. Patient has had recurrent fevers prompting ID consult. She had CT scan for further evaluation with concern for abscess at inferior aspect of PEG tube for which we are re-consulted. ?? Oropharyngeal dysphagia s/p PEG tube and now c/b abscess s/p EGD demonstrating a gastric ulcer and percutaneous gastropexy with retention sutures on 11/10/22 (small erosion behind gastric bumper without signs of gastric perforation) ?? Recommendations: ??? Follow ID recommendations for abx coverage for the emperic treatment of the perigastric fluid collection ??? Follow up GSx recommendations for postoperative care ??? Tube feeds and medications as per GSx recommendations ??? Continue PPI therapy for now Patient and above recommendations were discussed with GI attending, Dr West. This note and recommendations are not final till the note is co-signed by the attending. Please do not hesitate to contact us with further questions. Thank you for allowing us to participate in the care of this patient. Bobby Ho MD Gastroenterology & Hepatology Fellow PGY IV Division of Gastroenterology and Hepatology [facility] Associated attestation - Carlos West MD - 11/11/2022 3:54 PM CDT I have seen and examined the patient with the Fellow and I agree with the findings and plan of careas documented by the Fellow. Continue antibiotics per ID recommendations Carlos West MD PhD finance analyst Director, Division of Gastroenterology and Hepatology Co-Director, [facility] * Good Antunez MD - 11/11/2022 8:41 AM CDT I have seen and examined the patient with the resident and I agree with the findings and plan of care as documented by the reisident. Date of Service: 11/11/2022 Good Antunez MD Consuelo Darby is a 42 year old F p/w M1 occlusion s/p TNK and MT and TICI2b revascularization on10/19. TTE showed mobile aortic valve vegetation. Developed MCA syndrome s/p hemicrani. 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 - Fever: consulted ID, broaden abx, Cxs. - MRI brain w/wo done (11/10): cortical enhancement along the right frontal parietal and temporal regions 2/2 infarct progression but can't rule out cerebritis or infections. Will discuss with ID. - CT chest, abdomen and pelvis with contrast: -- glenis PEG fluid collection: Discussing with IR. -- possible post procedure hematoma- vascular surgery will re-evaluate. - On warfarin bridge now (INR 1.8): given pelvic hematoma will discuss AC with cardiology and vascular surgery - Urology replaced puentes (11/09-) - Ddimer was high: w/u -ve for DVT or PE - Constipation; BM regimen Problem List Right middle cerebral artery stroke (CMS/HCC) (POA: Unknown) Acute cerebrovascular accident (CVA) due to embolism of right middle cerebral artery (CMS/HCC) (POA: Yes) Nihss score 9 (POA: Yes) Received intravenous tissue plasminogen activator (tPA) in emergency department (POA: Yes) GERD (gastroesophageal reflux disease) (POA: Yes) Hemianopsia (POA: Yes) Weakness (POA: Yes) Left-sided sensory deficit present (POA: Yes) Gaze palsy (POA: Yes) Migraine (POA: Unknown) Hypertension (POA: Unknown) Presence of externally removable percutaneous endoscopic gastrostomy (PEG) tube (CMS/HCC) (POA: Unknown) See Resident note for the remaining problem specific plan. 23 MEDICATIONS FOR CURRENT ENCOUNTER: ?? SCHEDULED MEDICATIONS: ?? 0.9% NaCl injection 10-40 mL, Intracatheter, q8h ?? 0.9% NaCl injection 3 mL, Intracatheter, q8h ?? acetaminophen (Tylenol) tablet 650 mg, Enteral Tube, q6h ?? atorvastatin (Lipitor) tablet 80 mg, Enteral Tube, AT BEDTIME ?? cefepime (Maxipime) 2,000 mg in 0.9% NaCl IV 50 mL IVPB, Intravenous, q8h ?? doxycycline monohydrate capsule 100 mg, Enteral Tube, q12h ?? gadobutrol (Gadavist) injection, Intravenous, Contrast - Once ?? guaiFENesin (Robitussin) solution 10 mL, Enteral Tube, q12h ?? iopamidol (Isovue 370) 76 % contrast, Intravenous, Contrast - Once ?? loratadine (Claritin) tablet 10 mg, Enteral Tube, QDAY ?? metoprolol tartrate IR (Lopressor) tablet 25 mg, Enteral Tube, q12h ?? metroNIDAZOLE (Flagyl) 500 mg in 100 mL IVPB, Intravenous, q8h ?? pantoprazole (Protonix) injection 40 mg, Intravenous, QDAY ?? perflutren lipid microsphere (Definity) injection 0.5 mL, Intravenous, intra- Procedure multiple ?? polyethylene glycol 3350 (Miralax) packet 17 g, Enteral Tube, BID ?? senna-docusate (Senokot-S) tablet 2 tablet, Enteral Tube, QDAY ?? tamsulosin (Flomax) capsule 0.4 mg, Enteral Tube, QDAY ?? vancomycin (Vancocin) 1,500 mg in 500 mL NaCl IVPB Premix, Intravenous, q8h ?? vancomycin (Vancocin) IV dose per pharmacy, Does not apply, DIRECTED ?? verapamil (Isoptin) tablet 40 mg, Enteral Tube, q8h ?? vitamin D3 (Cholecalciferol) 25 MCG (1000 UNITS) tablet 2,000 Units, Enteral Tube, QDAY ?? [COMPLETED] potassium chloride (Klor-Con) packet 20 mEq, Enteral Tube, Once ?? [COMPLETED] prothrombin complex human (Kcentra) injection 2,116 Units, Intravenous, Once ?? CONTINUOUS MEDICATIONS: ?? heparin 100 units/mL in dextrose 5 % infusion, Intravenous, Continuous ?? PRN MEDICATIONS: ?? 0.9% NaCl infusion rate and volume, Intravenous, Once PRN ?? 0.9% NaCl injection 10-40 mL, Intravenous, PRN ?? 0.9% NaCl injection 3 mL, Intracatheter, PRN ?? bisacodyl (Dulcolax) suppository 10 mg, Rectal, QDAY PRN ?? diphenhydrAMINE (Benadryl) injection 25 mg, Intravenous, Once PRN ?? diphenhydrAMINE-zinc acetate (Benadryl Extra Strength) 2-0.1 % cream, Topical, PRN ?? fentaNYL (PF) (Sublimaze) injection 25 mcg, Intravenous, q10 min PRN ?? fentaNYL (PF) (Sublimaze) injection 50 mcg, Intravenous, q10 min PRN ?? HYDROmorphone (Dilaudid) injection 0.5 mg, Intravenous, q10 min PRN ?? metoclopramide (Reglan) injection 10 mg, Intravenous, Once PRN ?? oxyCODONE (immediate release) (Roxicodone) tablet 5 mg, Enteral Tube, q6h PRN ?? prochlorperazine (Compazine) injection 10 mg, Intravenous, Once PRN ?? throat lozenge 1 lozenge, Oral, q1h PRN Patient Vitals for the past 24 hrs: Temp Pulse Resp BP 11/11/22 0453 97.5 ??F (36.4 ??C) 77 -- 120/69 11/11/22 0057 -- 102 -- 121/70 11/11/22 0013 -- 100 -- 130/74 11/10/22 2341 -- 104 -- 126/68 11/10/22 2315 -- 107 -- 125/79 11/10/22 2300 -- (!) 115 -- 138/80 11/10/22 2242 -- (!) 110 -- 133/81 11/10/22 2233 99.9 ??F (37.7 ??C) (!) 118 -- 138/74 11/10/222154 -- 102 19 118/65 11/10/222149 -- 103 19 119/63 11/10/222144 -- 105 19 116/59 11/10/222139 -- 108 20 119/59 11/10/222134 -- (!) 112 26 127/70 11/10/222129 -- (!) 110 25 123/65 11/10/222124 -- 109 24 125/62 11/10/222119 -- (!) 111 23 125/63 11/10/222114 -- (!) 111 24 127/64 11/10/222109 -- (!) 112 23 126/64 11/10/222104 -- (!) 116 20 126/64 11/10/222099 -- (!) 113 (!) 33 129/58 11/10/22 2055 99.4 ??F (37.4 ??C) (!) 114 26 136/41 11/10/22 1855 -- 105 21 117/69 11/10/22 1841 -- 102 18 -- 11/10/22 183 (!) 102 ??F (38.9 ??C) 105 20 115/59 11/10/22 1501 98.7 ??F (37.1 ??C) 104 -- 119/69 11/10/22 1222 (!) 100.3 ??F (37.9 ??C) (!) 110 -- 129/51 11/10/22 0933 -- 95 -- -- 11/10/22 0854 97.4 ??F (36.3 ??C) 97 -- 103/53 Recent Labs Component Name 11/10/2222211/08/22234511/07/22 2234 NA 136 141 141 CL 105 107 108* CO2 24 24 22 BUN 13 9 8 CREATININE 0.52* 0.45* 0.53* CALCIUM 8.4 8.5 8.6 PHOS 3.9 3.8 4.3 Recent Labs Component Name 11/10/22233711/10/2222311/08/22234510/23/22 0129 10/22/22 0153 WBC 7.1 3.6 5.2 - - RBC 3.22* 3.23* 3.59* - - HGB 9.5* 9.4* 10.4* - - HCT 29.7* 29.4* 33.1* - - PLT - - - - 199 - = values in this interval not displayed. Recent Labs Component Name 10/20/22 0302 06/15/22 0757 CHOL 173 204* TRIG 201* 251* HDL 42 37* LDLCALC 91 117* Recent Labs Component Name 10/20/22 1015 HGBA1C 6.0* EAG 126 Recent Labs Component Name 11/10/22233711/10/2222311/08/22 23410/27/22 2029 10/27/22 0054 PLTCOUNT 297 302 360 - 519* PLATELET - - - - Occasional* - = values in this interval not displayed. * Sylvia Wyman PT - 11/11/2022 8:29 AM CDT [facility] Department of Physical Medicine & Rehabilitation Progress Note Patient: Consuelo Darby [facility] Record Number: [id number] Date of : 1980 Age: [age] year old 11/11/22 0829 Therapy on Hold Therapy on Hold Surgery;New Order Required for Therapy * Haleigh Narayan - 11/11/2022 8:07 AM CDT 11/11/22 0800 Therapy on Hold Therapy on Hold Surgery;New Order Required for Therapy * Shania Arce SLP - 11/11/2022 7:43 AM CDT [facility] Department of Physical Medicine & Rehabilitation Progress Note Patient: Consuelo Darby [facility] Record Number: [id number] Date of : 1980 Age: [age] year old 11/11/22 0700 Therapy on Hold Therapy on Hold Surgery;New Order Required for Therapy Barb Lopes MS [facility]-SIGNALING PROJECT ENGINEER Speech Language Pathologist * Maicol Quiroz DO - 11/10/2022 8:56 PM CDT - OK for anticoagulation with Heparin in 2 hours, warfarin tomorrow if no signs of bleeding on clinically or on H&H - OK for medications per g-tube tonight, tube feeds tomorrow - Continue abx to treatment for emperic treatment for perigastric fluid collection for 5 days - PPI - Remainder of care per primary team Maicol Quiroz DO 11/10/2022 9:04 PM Trauma/ACS Surgery PGY4 * Michelle Arce RN - 11/10/2022 6:44 PM CDT Patient left the unit complained by nurse to OR to get surgical procedure done * Michelle Arce RN - 11/10/2022 5:42 PM CDT Problem: ELOPEMENT/ABDUCTION Goal: Risk for elopement &/or abduction during hospitalization is minimized Outcome: Progressing Problem: Pain/Discomfort Goal: Patient uses pharmacological and non-pharmacological pain management strategies. Outcome: Progressing Goal: Patient verbalizes acceptable level of pain relief and ability to engage in desired activity. Outcome: Progressing Problem: Mobility Goal: Patient's mobility/activity will be maintained as optimum level for age, diagnosis and physical limitations Outcome: Progressing Goal: Continuum of care needs are further met through referral to outpatient services when appropriate. Outcome: Progressing Goal: Patient reports the ability to perform Activities of Daily Living. Outcome: Progressing Problem: Communication Impairment/Dysarthria Goal: Ability to express needs and understand communication Outcome: Progressing Problem: Nutrition Goal: Nutritional status is improving Outcome: Progressing Problem: Glycemic Control Goal: Clinical indication of glycemia balance is achieved Outcome: Progressing Problem: Knowledge Deficit,Education,Discharge Plan Goal: The patient/family will understand cerebrovascular disease and its symptoms, treatment and management Outcome: Progressing Problem: Oral Intake: Inadequate oral intake Goal: Total intake will meet estimated nutrient needs Outcome: Progressing Problem: Swallowing Goal: LTG - Patient will tolerate the least restrictive diet consistency to allow for safe consumption of daily meals Outcome: Progressing Goal: STG - Patient will participate in instrumental assessment of swallowing as appropriate Outcome: Progressing Goal: STG - Patient will tolerate therapeutic trials of recommended consistency without clincial signs and symptoms of aspiration Outcome: Progressing Goal: STG - Patient will tolerate recommended food and liquid consistencies without clinical signs and symptoms of aspiration Outcome: Progressing Goal: STG - Patient will complete swallowing exercises Outcome: Progressing Goal: STG - Patient/family will complete oral motor exercises for improved bolus control Outcome: Progressing Problem: Transfers Goal: STG - Transfer from bed to chair Outcome: Progressing Problem: Risk for Violence: Self-Directed or Other Directed Description: Diagnosis: Risk for self-directed Violence or Risk for Directed Violence Risk Factors: Biochemical/neurologic imbalances, impulsivity, manic excitement, psychotic symptomatology, rage reaction, restlessness Possibly Evidenced By: agitated behaviors, delusional thinking, hallucinations, loud/threatening/profane speech, poor impulse control, provocative behaviors, verbal threats against others, verbal threats against self Goal: Patient will verbalize control of feelings. Outcome: Progressing Goal: Patient will respond to interventions when potential or actual loss of control occurs. Outcome: Progressing Goal: Patient will refrain from provoking others to physical harm. Outcome: Progressing Goal: Patient will display nonviolent behaviors toward others in the hospital, with the aid of medications and nursing interventions. Outcome: Progressing Goal: Patient will seek help when experiencing aggressive impulses. Outcome: Progressing Goal: Patient will refrain from verbal threats and loud, profrane language toward others. Outcome: Progressing Goal: Patient will be safe and free from injury. Outcome: Progressing Problem: Skin Integrity Goal: Skin integrity is maintained or improved Outcome: Progressing Problem: Neurological Deficit Goal: Neurological status is stable or improving Outcome: Progressing * Shania Troy OT - 11/10/2022 3:30 PM CDT [facility] Physical Medicine and Rehabilitation Occupational Therapy Progress Note Patient: Consuelo Darby Med Record Number: [id number] Date of : 1980 Age: [age] year old PPE worn by staff: gloves;mask - surgical services coordinator: Cheli Recommendations: Discharge OT Discharge Recommendations: Patient would benefit from intensive 3-hour multidisciplinary therapy This recommendation is made due to ongoing intensive OT functional needs: not at baseline due to impaired ability to complete ADL's;functional mobility is significantly below baseline;patient demonstrates a significant functional decline and would benefit from skilled therapy intervention to restore function;patient has the ability to progress and demonstrate measurable gains as a result of skilled therapy Recommended Transportation Method: Stretcher/Ambulance Nurse and Physical Therapy contacted regarding patient status and/or discharge plan. Activity Level: up ad bigg PRECAUTIONS: Falls, skin, helmet, SBP <160 SUBJECTIVE: Subjective: Pt giving thumbs up/down to communicate. Pain Assessment: Pain Location #1 Pain Scale/Observation: Numeric (0-10) Pain Rating Score #1: 0 (nodding head no to pain) Sedation Level #1: 1-Awake and alert Pain Location : Abdomen Pain Intervention(s): (RN present to administer pain medication during session) OBJECTIVE: At start of therapy session, patient found in bed General Appearance: Pt in bed upon arrival in [facility], sister present in room during session. LDA: IV's: Peripheral line, PEG Tube and puentes catheter Mental Status/Cognition: Level of Consciousness-Adult: Alert Orientation Level: Oriented to Person Cognition: Follows one step commands;Follows Commands-inconsistent;Attention/concentration-decreased;Processing-delayed Mobility: a gait belt and non-slip socks were used for all out of bed activity this date. Bed Mobility: Rolling: Maximal Assistance to Left Supine to Sit: Maximum Assistance;X 2;Requires Verbal Cues for Safety;Requires Verbal Cues for Technique;Requires Physical Cues for Safety;Requires Physical Cues for Technique (pt mobilizing RLE towards EOB and reaching with RUE) Sit to Supine: Maximum Assistance;X 2 Transfers: Sit to Stand: Activity Does Not Occur Stand to Sit: Activity Does Not Occur Transfer Device: Gait belt (bilateral handheld assist) Balance: Max A for static sitting EOB for 5 min. Pt with poor sitting balance and lack of postural control. Pt intermittently following commands to use R hand to hold onto OT hand for balance. Pt impulsively laying back down in bed after ~5 min, not endorsing pain or significant fatigue. ACTIVITY TOLERANCE: Patient's activity tolerance: fair minus Splint Issued/Checked:??L resting hand and L foot drop. Resting hand splint noted to be improperly donned upon arrival (fingers not properly in splint and strap over digits not on). Sister at bedsideeducated on proper donning of splint, with sister requesting splint be left off so she could do PROM. L foot drop splint fitting appropriately, skin integrity intact. Modified [place]: Current Modified [place] Score: 5 AM-PAC 6 Clicks Daily Activity Raw Score:: 9 TREATMENT/INTERVENTIONS: Cognitive retraining Functional transfer training Endurance training Bed mobility Energy conservation Safety awareness EDUCATION: While performing OT, Patient was instructed in:functional mobility training, self-care training, cognitive retraining, energy conservation, safety awareness/fall precautions , use of call light Presented to patient who demonstrates Questionable understanding of instructions given. INFORMED CONSENT TO TREATMENT: Plan of care is discussed but patient with questionable understanding. ASSESSMENT: Patient continues to benefit from skilled Occupational Therapy to achieve the following functional goals. Short Term Goals: Goal Formation With patient/family Patient will increase orientation to?person, place, time and situation Patient will perform supine to/from sit??with moderate assist and X 2 Patient will tolerate treatment??20 minutes, with good endurance and with minimal pain Group Home Goal(s): Patient to discharge to appropriate next level of inpatient care Plan: Patient continues to benefit from skilled therapy services., Continue with goals as established. If patient is discharged from the facility, this note serves as a discharge summary if further occupational therapy visits did not occur. Refer to filed flowsheet for further details. Following therapy session, patient left in bed, with bed alarm on , with call light within reach, with family in room, with RNMichelle aware, with therapy cues visible on white board. 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 Found to have right MCA occulusion. .Interventional neurology was consulted and patient underwent diagnostic??catheter??cerebral??angiogram??and revascularization of right MCA occlusion on 10/19/2022. Hospital stay was complicated by developing cerebral edema for which neurosurgery was consulted and patient was taken to the OR for right decompressive hemicraniectomy on 10/20/2022. As part of embolic/ischemic strokework up, patient also underwent SARAH and showed vegetation on aortic side of??left??coronary cusp, negative bubble study, no thrombus in left atrial appendage. 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 Bartonella PCR negative in blood. Patient also underwent to throbectomy on 10/30.Patient started having a high grade fever on 11/03 so ID is re-consulted.??Now on Van, Cefepime and doxy SUBJECTIVE & INTERVAL HISTORY: Patient seen and examined Febrile overnight, tmax 101.2 CT CAP: Abscess inferior to PEG noted, Inflammatory mass noted in right groin Current Abx Van, Cefepime and doxy Inpatient Medications ??? 0.9% NaCl 10-40 mL Intracatheter q8h ??? 0.9% NaCl 3 mL Intracatheter q8h ??? acetaminophen 650 mg Enteral Tube q6h ??? atorvastatin 80 mg Enteral Tube AT BEDTIME ??? cefepime 2 g Intravenous q8h ??? doxycycline monohydrate 100 mg Enteral Tube q12h ??? enoxaparin 1 mg/kg Subcutaneous q12h ??? gadobutrol Intravenous Contrast - Once ??? guaiFENesin 10 mL Enteral Tube q12h ??? iopamidol Intravenous Contrast - Once ??? lansoprazole 30 mg Enteral Tube QDAY BEFORE BREAKFAST ??? loratadine 10 mg Enteral Tube QDAY ??? metoprolol tartrate IR 25 mg Enteral Tube q12h ??? metroNIDAZOLE 500 mg Intravenous q8h ??? perflutren lipid microsphere 0.5 mL Intravenous intra-Procedure multiple ??? polyethylene glycol 3350 17 g Enteral Tube BID ??? senna-docusate 2 tablet Enteral Tube QDAY ??? tamsulosin 0.4 mg Enteral Tube QDAY ??? vancomycin 1,500 mg Intravenous q8h ??? vancomycin (VANCOCIN) IV dose per pharmacy Does not apply DIRECTED ??? verapamil 40 mg Enteral Tube q8h ??? Vitamin D3 (cholecalciferol) 2,000 Units Enteral Tube QDAY ??? warfarin Other QDay 1700 ??? warfarin 6 mg Enteral Tube once warfarin dextrose 5 % and 0.9% NaCl, , Last Rate: 100 mL/hr at 09/01/23 1353 PRN Medications ??? 0.9% NaCl ??? SALINE LOCK, INSERT AND MAINTAIN AND 0.9% NaCl AND 0.9% NaCl ??? bisacodyl ??? diphenhydrAMINE-zinc acetate ??? oxyCODONE (immediate release) OBJECTIVE: Vital Signs: BP 129/51 Pulse (!) 110 Temp (!) 100.3 ??F (37.9 ??C) (Axillary) Resp 17 Ht 1.626 m (5' 4 ) Wt 95.3 kg (210 lb) SpO2 98% Temp (24hrs), Av.7 ??F (37.6 ??C), Min:97.4 ??F (36.3 ??C), Max:101.2 ??F (38.4 ??C) I/O: Intake/Output Summary (Last 24 hours) at 11/10/2022 1432 Last data filed at 11/10/2022 0532 Gross per 24 hour Intake -- Output 1650 ml Net -1650 ml Physical Exam: General:??Alert, cooperative, no distress, obese HEENT: NC, AT, EOMI, MMM, Sutures to head cdi Chest wall:??No tenderness or deformity Lungs: Clear to auscultation bilaterally Heart: RRR, S1, S2 normal, no murmur, click, rub or gallop Abdomen: Soft, non-distended, non-tender, +BS Back:??Symmetric, no curvature. ROM normal. No CVA tenderness Extremities:??Atraumatic, no cyanosis or edema Skin:??Skin color, texture, turgor normal. Neurologic: follows commands Psychiatry: Appropriate mood/affect LABS CBC: Recent Labs Component Name 11/10/22 0224 11/08/22 2346 11/07/22 2234 10/23/22 0129 10/22/22 0153 WBC 3.6 5.2 4.7 - - RBC 3.23* 3.59* 3.18* - - HGB 9.4* 10.4* 9.2* - - HCT 29.4* 33.1* 29.5* - - MCV 91.0 92.2 92.8 - - PLT - - - - 199 - = values in this interval not displayed. BMP: Recent Labs Component Name 11/10/22 0223 11/09/22 0654 11/08/22 2346 11/07/22 2234 10/20/22 0302 10/19/22 0824 06/15/22 0757 NA 136 - 141 141 - 139 138 CL 105 - 107 108* - 108* 107 CO2 24 - 24 22 - 21* 23 BUN 13 - 9 8 - 13 12 CREATININE 0.52* - 0.45* 0.53* - 0.84 0.74 ALB - 2.6* - - - 3.5 3.6 PROT - 7.3 - - - 7.7 7.5 - = values in this interval not displayed. estimated creatinine clearance is 161 mL/min (A) (by C-G formula based on SCr of 0.52 mg/dL (L)). Recent Labs Component Name 11/09/22 0654 10/19/2282306/15/22 0757 ALT 77* 16 9 AST 67* 19 17 ALKPHOS 73 52 44 TBILI 0.3 0.1* 0.1* Bartonella PCR negative Mycoplasma IGM and IGG negative Chlamydia IGM/IGG negative Q fever IGG,IGM negative Bartonella IGG,IGM negative MICROBIOLOGY: Urine and blood cx with no growth HISTOPATHOLOGY: None at this admission IMAGING & PROCEDURE: Ct chest, abdomen, pelvis 1. Progressive soft tissue stranding with gas in the right inguinal region with an inflammatory mass encasing the right femoral vessels with mild narrowing of the femoral artery and moderate narrowing of the femoral vein. This could represent a postsurgical hematoma. Recommend correlation with symptoms and signs of superinfection. 2. Interval placement of a gastrostomy tube with a small gas and fluid collection along the inferior aspect of the gastrostomy tube insertion site and stomach, measuring 2.2 cm 1. Progressive soft tissue stranding with gas in the right inguinal region with an inflammatory mass encasing the right femoral vessels with mild narrowing of the femoral artery and moderate narrowing of the femoral vein. This could represent a postsurgical hematoma. Recommend correlation with symptoms and signs of superinfection. 2. Interval placement of a gastrostomy tube with a small gas and fluid collection along the inferior aspect of the gastrostomy tube insertion site and stomach, measuring 2.2 cm. MRI brain ?? 1. Redemonstration of postsurgical changes from right decompressive hemicraniectomy and evolving large volume right MCA territory infarct as described above. Mild interval increase in the caliber of lateral and third ventricles could be secondary to decreased mass effect, less likely hydrocephalus, continued attention recommended on follow-up. ?? 2. Interval resolution of midline shift compared to prior MRI. Interval increased linear susceptibility along the medial margin of the infarction at the periventricular white matter could be secondary to hemosiderin deposition/petechial hemorrhages. ?? 3. Significant interval increase in the cortical [...] of evolving subacute infarction versus developing cerebritis. ?? 4. There is also interval increase restricted diffusion in the extra-axial fluid collection overlying the craniectomy site could be secondary to evolving blood products/postsurgical changes versus secondary to superimposed infection, clinical correlation is recommended. 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 Patient was started on vancomycin and ceftriaxone and doxycycline per the previous ID consult and planned to complete4 weeks. Ceftriaxone transitioned to cefepime for fevers. ?? 1.) Aortic vegetations, possible cx negative endocarditis 2.) Fevers - re consulted for fevers - UA, urine cx neg, cxr negative, blood cx negative - CT PE negative - CT chest abdomen and pelvis concerning for abscess below g-tube, inflammatory mass in the right groin - Abscess too small to intervene per IR - Groin evaluated by vascular - MRI with post-surgical changes, also concerning for subacute infarction vs superimposed Infectioncerebritis/meningitis cannot be excluded, Neurology following Plan/ Recommendations: Continue cefepime 2 gm q 8hrs, continue vancomycin for two more weeks (end date 11/22) doxycycline for total of four weeks (start date 11/05- 12/03) Please start Flagyl for intraabdominal abscess Can consider LP for further evaluation Follow CBC with diff,??BMP ??weekly (at minimum) while on IV antibiotics ?? Alhaji Otoole M.D. Infectious Diseases ?? Associated attestation - Angelica Cruz MD - 11/11/2022 9:42 AM CDT [facility] Infectious Diseases Attending Note Documentation Date/Time: 11/10/2022, 11:34 PM The patient was seen and evaluated with Internal Medicine resident Alhaji Otoole M.D. I agree with the findings as described in the note, including the history, interval changes, ROS, examination, objective data interpretation, impression and plan as documented, though specifically I note the following: Interval History: - Still febrile. CT A/P w contrast showed a 2 cm rim-enhancing collection along the inferior aspectof G tube with small locule of gas, and progressive right inguinal region inflammatory mass encasing the right femoral vessels, likely a postsurgical hematoma. - ACS consulted for abscess surrounding G tube, was taken to OR for EGD, found small erosion behindgastric bumper without signs of gastric perforation. - Vascular surgery consulted for right groin postsurgical hematoma vs. abscess, thought no signs ofinfection, no intervention for now. Assessment: 41 year old female with PMH of HTN, migraine, GERD, presented on 10/19/2022 as code stroke due to acute onset left sided weakness, left sided sensory deficits, and dysarthria. Found to have right MCAocculusion. On empirical culture negative infective endocarditis treatment. Called back for new fever. Persistent fever since 11/03/2022: BCx and UCx NG; no diarrhea, no signs of pneumonia, no CVC line. Source now concerning from (1) post craniectomy site infection that may extend intracranially (see #2); (2) PEG tube complication with an abscess inferior to the PEG tube (was placed 11/01), see #3; (3) Right groin postsurgical hematoma, vs abscess also concerning, see #4. Possible post craniectomy site infection with intracranial extension: Evidence on 11/09 MRI Brain, superimposed cerebritis/meningitis cannot be excluded. Consider LP with CSF analysis to eval of FINE HAIRER infection. Personally discussed with neurology team, they have less suspicion of infection, LP deferred for now. On empiric IV vancomycin, cefepime and metronidazole for now. Abscess inferior to the PEG tube: 11/09 CT A/P w contrast showing an abscess inferior to the PEG tube (PEG was placed 11/01). Underwent OR EGD with ACS, found small erosion behind gastric bumper without signs of gastric perforation.Please call ACS for abscess I&D and management. Started metronidazole. Continue cefepime and IV vancomycin. Follow further plan from ACS. Right groin progressive postsurgical hematoma, vs abscess: Revealed on 11/09 CT A/P w contrast. Vascular surgery, thought no signs of infection, no intervention for now. Monitor closely. 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 DDx: IE, vs Libman-Sacks endocarditis, vs fibroelastoma, vs rheumatic valvular disease (less likely), vs Lambl excrescence (less likely). CT C/A/P w contrast 10/25 for possible source/disseminated infection work up, largely unrevealed. Serology testing for Coxiella, Bartonella, Mycoplasma and Chlamydia for possible culture negative endocarditis, all negative. Empiric antibiotics started 10/25 to cover at least Staphylococcus and Streptococcus, and atypical bacterial infection. On IV vancomycin and ceftriaxone, but doxycycline never started. Spiked fever 11/04, ceftriaxone ->cefepime, and added on doxycycline 11/05, will keep the plan for 4 weeks treatment: IV vancomycin + cefepime (10/25 - EOT 11/22), doxycyline (11/05 - EOT 12/03). Cardio-embolic/ischemic stroke: Unusual presentation for this 41-year-old patient with no significant risk factors for CVA. DDx hypercoagulable state, autoimmune disorder, etc. S/p 10/19 with IR underwent diagnostic catheter cerebral angiogram and revascularization of right MCA occlusion. S/p 10/20 with neurosurgery for R sided [id number] decompressive sonya-craniectomy for treatment of refractory intracranial hypertension. Transaminitis. Renal function: Estimated Creatinine Clearance: 161 mL/min (A) (by C-G formula based on SCr of 0.52mg/dL (L)). Plan/Recommendations: - Start metronidazole. Continue IV vancomycin, cefepime and doxycycline. - Follow blood cultures until final - Consider LP with CSF analysis to eval of FINE HAIRER infection. - Monitor right groin change. If increase the size of swelling, call Vascular surgery back. - Trend fever curve. Thank you for allowing us to participate in the care of this patient. Infectious Diseases will continue to follow along, please call with questions or concerns. Angelica Cruz MD Infectious Diseases Attending * Jaime Drew MD - 11/10/2022 2:28 PM CDT The above note was reviewed. The patient was seen and examined. I would add the following: I saw and examined the patient with the resident and/or medical student and/or nurse practitioner. I have verified all details of the note and agree with his/her documentation with additions and modifications as listed in my separate note. Please refer to the resident's, medical student's, or nursepractitioner's note for plans of active problems not discussed in this note. 42F p/w M1 occlusion s/p TNK and MT and TICI2b revascularization. TTE showed mobile aortic valve vegetation. Developed MCA syndrome s/p hemicrani. MT c/b R iliac and common femoral a. occlusion s/p thrombectomy. - Fever: consulted ID, broaden abx, Cxs. - MRI brain w/wo done (11/10): cortical enhancement along the right frontal parietal and temporal regions 2/2 infarct progression but can't rule out cerebritis or infections. Will discuss with ID. - CT chest, abdomen and pelvis with contrast: -- glenis PEG fluid collection: Discussing with IR. -- possible post procedure hematoma- vascular surgery will re-evaluate. - On warfarin bridge now (INR 1.8): given pelvic hematoma will discuss AC with cardiology and vascular surgery - Urology replaced puentes (11/09-) - Ddimer was high: w/u -ve for DVT or PE - Constipation; BM regimen MEDICATIONS FOR CURRENT ENCOUNTER: SCHEDULED MEDICATIONS: 0.9% NaCl injection 10-40 mL, Intracatheter, q8h 0.9% NaCl injection 3 mL, Intracatheter, q8h acetaminophen (Tylenol) tablet 650 mg, Enteral Tube, q6h atorvastatin (Lipitor) tablet 80 mg, Enteral Tube, AT BEDTIME cefepime (Maxipime) 2,000 mg in 0.9% NaCl IV 50 mL IVPB, Intravenous, q8h doxycycline monohydrate capsule 100 mg, Enteral Tube, q12h enoxaparin (Lovenox) injection 100 mg, Subcutaneous, q12h gadobutrol (Gadavist) injection, Intravenous, Contrast - Once guaiFENesin (Robitussin) solution 10 mL, Enteral Tube, q12h iopamidol (Isovue 370) 76 % contrast, Intravenous, Contrast - Once lansoprazole (Prevacid) suspension 30 mg, Enteral Tube, QDAY BEFORE BREAKFAST loratadine (Claritin) tablet 10 mg, Enteral Tube, QDAY metoprolol tartrate IR (Lopressor) tablet 25 mg, Enteral Tube, q12h metroNIDAZOLE (Flagyl) 500 mg in 100 mL IVPB, Intravenous, q8h perflutren lipid microsphere (Definity) injection 0.5 mL, Intravenous, intra- Procedure multiple polyethylene glycol 3350 (Miralax) packet 17 g, Enteral Tube, BID senna-docusate (Senokot-S) tablet 2 tablet, Enteral Tube, QDAY tamsulosin (Flomax) capsule 0.4 mg, Enteral Tube, QDAY vancomycin (Vancocin) 1,500 mg in 500 mL NaCl IVPB Premix, Intravenous, q8h vancomycin (Vancocin) IV dose per pharmacy, Does not apply, DIRECTED verapamil (Isoptin) tablet 40 mg, Enteral Tube, q8h vitamin D3 (Cholecalciferol) 25 MCG (1000 UNITS) tablet 2,000 Units, Enteral Tube, QDAY warfarin (Coumadin) dose per pharmacy, Other, QDay 1700 warfarin (Coumadin) tablet 6 mg, Enteral Tube, once warfarin [COMPLETED] potassium chloride (Klor-Con) packet 20 mEq, Enteral Tube, Once [COMPLETED] warfarin (Coumadin) tablet 6 mg, Enteral Tube, once warfarin ?? [] iopamidol (Isovue 370) 76 % contrast, Intravenous, Contrast - Once CONTINUOUS MEDICATIONS: ?? dextrose 5 % and 0.9% NaCl infusion, Intravenous, Continuous PRN MEDICATIONS: 0.9% NaCl injection 10-40 mL, Intravenous, PRN 0.9% NaCl injection 3 mL, Intracatheter, PRN bisacodyl (Dulcolax) suppository 10 mg, Rectal, QDAY PRN diphenhydrAMINE-zinc acetate (Benadryl Extra Strength) 2-0.1 % cream, Topical, PRN ?? oxyCODONE (immediate release) (Roxicodone) tablet 5 mg, Enteral Tube, q6h PRN Patient Vitals for the past 24 hrs: Temp Pulse Resp BP 11/10/22 1222 (!) 100.3 ??F (37.9 ??C) (!) 110 -- 129/51 11/10/22 0933 -- 95 -- -- 11/10/22 0854 97.4 ??F (36.3 ??C) 97 -- 103/53 11/10/22 0503 (!) 101.2 ??F (38.4 ??C) 102 -- 115/52 11/09/22 2035 98.7 ??F (37.1 ??C) 107 17 121/68 11/09/22 1759 (!) 100.2 ??F (37.9 ??C) 99 14 125/57 11/09/22 1756 (!) 100.2 ??F (37.9 ??C) -- -- -- Intake/Output Summary (Last 24 hours) at 11/10/2022 1428 Last data filed at 11/10/2022 0532 Gross per 24 hour Intake -- Output 1650 ml Net -1650 ml Labs: Recent Labs Component Name 10/20/2230106/15/22 0757 CHOL 173 204* TRIG 201* 251* HDL 42 37* LDLCALC 91 117* Recent Labs Component Name 10/20/22 1015 HGBA1C 6.0* Recent Labs Component Name 11/10/2222211/08/22234511/07/22223311/06/222311 NA 136 141 141 140 POTASSIUM 3.6 3.9 3.6 3.6 CL 105 107 108* 108* CO2 22 22 BUN 13 9 8 8 CREATININE 0.52* 0.45* 0.53* 0.46* CALCIUM 8.4 8.5 8.6 8.5 MAGNESIUM 2.0 2.0 2.8* 2.0 PHOS 3.9 3.8 4.3 4.3 Recent Labs Component Name 11/10/2222311/08/22234511/07/22223311/06/22 2312 WBC 3.6 5.2 4.7 4.7 HGB 9.4* 10.4* 9.2* 9.3* HCT 29.4* 33.1* 29.5* 29.5* PLTCOUNT 302 360 325 195 RBC 3.23* 3.59* 3.18* 3.20* Recent Labs Component Name 11/10/22 0223 11/09/22 0237 11/08/22 0254 11/07/22 0305 11/06/22 2312 11/06/22 1830 11/06/22 0740 PT 20.5* 18.9* 18.3* - - - - INR 1.8 1.6 1.6 - - - - PTT - - - - 63.4* 68.6* 97.1* - = values in this interval not displayed. Recent Labs Component Name 10/30/22 1333 10/30/22 1259 10/21/22 0801 10/20/22 2246 PH 7.40 7.33* 7.40 7.36 PCO2 39 49* 31* 32* PO2 228* 208* 143* 179* FIO2 - - 30.0 40.0 No data found. Micro: Microbiology Results (Displays last 21 days for this encounter ONLY) Procedure Component Value - Date/Time RESPIRATORY PANEL WITH SARS-COV-2 BY PCR ([facility]) [[id number]] (Normal) Collected: 11/05/22 1310 Lab Status: Final result Specimen: Microbiology from Nasopharyngeal Updated: 11/05/22 1732 Adenovirus PCR Not detected Coronavirus 229E PCR Not detected Coronavirus HKU1 PCR Not detected Coronavirus NL63 PCR Not detected Coronavirus OC43 PCR Not detected COVID-19 PCR Not detected Human Metapneumovirus PCR Not detected Human Rhinovirus/Enterovirus PCR Not detected Influenza A PCR Not detected Influenza B PCR Not detected Parainfluenza Virus 1 PCR Not detected Parainfluenza Virus 2 PCR Not detected Parainfluenza Virus 3 PCR Not detected Parainfluenza Virus 4 PCR Not detected Respiratory Syncytial Virus PCR Not detected Bordetella parapertussis PCR Not detected Bordetella pertussis PCR Not detected Chlamydia pneumoniae PCR Not detected Mycoplasma pneumoniae PCR Not detected Narrative: This nucleic amplification assay has received FDA authorization via the [employer]. CULTURE URINE [[id number]] (Normal) Collected: 11/05/22 1307 Lab Status: Final result Specimen: Urine Cath Straight Updated: 11/06/22 1617 Culture Urine No growth (<100 CFU/mL) CULTURE BLOOD [[id number]] (Normal) Collected: 11/05/22 1054 Lab Status: Final result Specimen: Blood Peripheral Updated: 11/10/22 1400 Culture No growth day 5 CULTURE URINE [[id number]] (Normal) Collected: 10/27/22 1208 Lab Status: Final result Specimen: Urine Clean Catch Updated: 10/28/22 2236 Culture Urine No growth (<100 CFU/mL) CULTURE BLOOD FUNGUS [[id number]] (Normal) Collected: 10/27/22 1158 Lab Status: Preliminary result Specimen: Blood Peripheral Updated: 11/06/22 0848 Culture No fungus isolated CULTURE BLOOD AFB [[id number]] (Normal) Collected: 10/27/22 1158 Lab Status: Preliminary result Specimen: Blood Peripheral Updated: 11/06/22 1135 Culture No acid-fast bacillus isolated BARTONELLA SPECIES PCR [[id number]] Collected: 10/27/22 1158 Lab Status: Final result Specimen: Blood Updated: 11/01/22 1638 Bartonella Source Plasma Bartonella Species by PCR Not Detected Comment: NOT DETECTED - A negative result does not rule out the presence of PCR inhibitors in the patient specimen or assay specific nucleic acid in concentrations below the level of detection by the assay. INTERPRETIVE INFORMATION: Bartonella Species Detection by PCR This test was developed and its performance characteristics determined by [facility]. It has not been cleared or approved by the US Food and Drug Administration. This test was performed in a CLIA certified laboratory and is intended for clinical purposes. Performed By: [facility] [address] [place] [id number] Microfilm Mounter: Boo Bond MD, PhD CLIA Number: [id number] CULTURE BLOOD [[id number]] (Normal) Collected: 10/25/22 0900 Lab Status: Final result Specimen: Blood Peripheral Updated: 10/30/22 1330 Culture No growth day 5 CULTURE BLOOD [[id number]] (Normal) Collected: 10/24/22 1313 Lab Status: Final result Specimen: Blood Peripheral Updated: 10/29/22 1632 Culture No growth day 5 MRSA DNA PCR [[id number]] (Normal) Collected: 10/23/22 1234 Lab Status: Final result Specimen: Microbiology from Nasal Updated: 10/23/222043 MRSA DNA by PCR Not detected Narrative: Methicillin-resistant Staphylococcus aureus (MRSA) DNA is not detected (presumed not colonized withMRSA). CULTURE BLOOD [[id number]] (Normal) Collected: 10/23/22 1216 Lab Status: Final result Specimen: Blood Peripheral Updated: 10/28/22 1702 Culture No growth day 5 CULTURE BLOOD [[id number]] (Normal) Collected: 10/23/22 1205 Lab Status: Final result Specimen: Blood Peripheral Updated: 10/28/22 1702 Culture No growth day 5 Length of stay: 22 Problem List Right middle cerebral artery stroke (CMS/HCC) (POA: Unknown) Acute cerebrovascular accident (CVA) due to embolism of right middle cerebral artery (CMS/HCC) (POA: Yes) Nihss score 9 (POA: Yes) Received intravenous tissue plasminogen activator (tPA) in emergency department (POA: Yes) GERD (gastroesophageal reflux disease) (POA: Yes) Hemianopsia (POA: Yes) Weakness (POA: Yes) Left-sided sensory deficit present (POA: Yes) Gaze palsy (POA: Yes) Migraine (POA: Unknown) Hypertension (POA: Unknown) Presence of externally removable percutaneous endoscopic gastrostomy (PEG) tube (CMS/HCC) (POA: Unknown) Present on Admission: ??? Hemianopsia ??? Weakness ??? Left-sided sensory deficit present ??? Gaze palsy ??? Acute cerebrovascular accident (CVA) due to embolism of right middle cerebral artery (CMS/HCC) ??? Nihss score 9 ??? Received intravenous tissue plasminogen activator (tPA) in emergency department ??? GERD (gastroesophageal reflux disease) Routine multidisciplinary rounds were completed today with the presence of the primary team staff, residents, PT/OT/SIGNALING PROJECT ENGINEER and CM/SW. Jaime Drew MD Vascular and Interventional Neurology * Isi Aguirre MD - 11/10/2022 2:11 PM CDT Vascular plan of care Full consult note to follow. Right groin incision is healing well without any overlying skin changes, purulent drainage, or fluctuance. CT scan was evaluated and will monitor clinically. Unlikely thesource of fever is from the groin. Discussed with vascular chief and attending. Isi Aguirre MD Vascular Surgery * Humaira Fernandes, JOSETTE - 11/10/2022 1:45 PM CDT [facility] Department of Physical Medicine & Rehabilitation Progress Note Patient: Consuelo Darby Med Record Number: [id number] Date of : 1980 Age: [age] year old 11/10/22 1300 Missed Visit Missed Visit Other (Comment) Attempted 2x to see patient for dysphagia tx, patient working with other therapy disciplines. ST will continue to follow * Maria Luisa Scott APRN-LEAD MANUFACTURING TECHNICIAN - 11/10/2022 12:07 PM CDT Puentes Placement Procedure Note Indication: Unable to place urinary catheter Procedure: The patient was positioned in the supine position. Bladder scan showed 788ml in bladder.A fenestrated drape was placed over the perineum. The urethra was exposed and controlled with the nondominant hand. Betadine soaked swabs were then used to prepare the area in a sterile fashion, running the swabs over the uretheral opening 3 separate times. A 16 Russian Silicone puentes catheter was covered with sterile lubricant and was then introduced into the meatus and quickly advanced into the bladder. Position was verified by the free flow of 1000ml clear urine from the bladder. The catheterballoon was then filled with 10 mL of saline solution. The urine collection system was secured in pl [place]. Of note the red seal was broken to accommodate 16F silicone catheter. Exam: yeast to bilateral vaginal folds and groin. Pericare done with soap and water. Antifungal cream applied to bilateral groin. Complications: None Puentes Difficulty: Level 1 *The Puentes Difficulty Chart is a qualitative method for grading the difficulty in placing a puentes catheter. Please reference table below. Level Puentes [place] Sample Patient 1 Teaching Puentes (i.e. Medical student, Tech, RN) - Female without urologic history 2 Registered Nurse, Any Physician, Any Advanced Practitioner - Male >65 yo 3 Charge or Experienced Nurse, Urology AIRPORT PLANNER, Urologist - Multiple failed attempts 4 Urologist - Required Cystoscopy, simple 5 Urologist - Required Cystoscopy, complex Patient has latex allergy- silicone catheter was used. Plan: - 16F silicone puentes placed - Keep puentes in place until VT in urology clinic - F/u on 12/06 with Dottie Monreal, AIRPORT PLANNER - Family at bedside and updated on plan of care - Please call urology with any questions.concerns - Remainder per primary team [facility] * Shania Jha, PharmD - 11/10/2022 11:22 AM CDT ACTIVE CONSULTS TO PHARMACY Pharmacy Consult: Warfarin Management ASSESSMENT/PLAN Warfarin Indication for anticoagulation: ischemic stroke due to septic emboli Warfarin schedule prior to this encounter: New start Warfarin Dose History Date INR Dose (mg) Comments 11/03 1.2 5 mg New start with heparin bridge 11/04 1.1 5 mg 11/05 1.3 5 mg 11/06 1.4 5 mg 11/07 1.6 5 mg Changed to therapeutic enoxaparin bridge 11/08 1.6 6 mg 11/09 1.6 6 mg Goal INR: 2.0 - 3.0 Today's INR: Subtherapeutic at 1.8 Pertinent medications during hospitalization: lansoprazole, cefepime, and doxycycline may increase warfarin concentrations Plan: 1. Warfarin dose: 6 mg X 1 -- will continue the same dose since the INR is trending up again -->increasing the dose slowly due to patient having had a large stroke 2. Daily INR 3. Bridging therapy with enoxaparin 100 mg Q 12 hours 4. Warfarin education completed on 11/06. Shania Jha, PharmD Subjective/Objective Consuelo Darby is a 42 year old female. The primary encounter diagnosis was Right middle cerebralartery stroke (CMS/HCC). Diagnoses of Weakness, Gaze palsy, Hemianopsia, Left-sided sensory deficitpresent, Dysarthria, At high risk for bleeding after thrombolytic therapy, Acute cerebrovascular accident (CVA) due to embolism of right middle cerebral artery (CMS/HCC), Nihss score 9, Aortic valve vegetation, Occlusion of external iliac artery (CMS/HCC), Cold extremity without peripheral vasculardisease, Acute lower limb ischemia, Leukocytosis, unspecified type, Received intravenous tissue plasminogen activator (tPA) in emergency department, Hypoxia, Ischemia, Primary hypertension, Iliac artery occlusion, right (CMS/HCC), Presence of externally removable percutaneous endoscopic gastrostomy(PEG) tube (CMS/HCC), and Fever, unspecified fever cause were also pertinent to this visit. Height: 5' 4 (162.6 cm) Wt 95.3 kg (210 lb) Body mass index is 36.05 kg/m??. Serum creatinine: 0.52 mg/dL (L) 11/10/22222 Estimated creatinine clearance: 161 mL/min (A) * Rosa Vegas, PT - 11/10/2022 10:05 AM CDT [facility] Physical Medicine and Rehabilitation Physical Therapy Progress Note Patient: Consuelo Darby Med Record Number: [id number] Date of : 1980 Age: [age] year old PPE worn by staff: gloves;mask - procedural PPE worn by patient: gown - patient, clean;socks - clean Tech: Cheli Recommendations: PT Discharge Recommendations: Patient would benefit from intensive 3-hour multidisciplinary therapy This recommendation is made due to ongoing intensive PT functional needs: patient demonstrates a significant functional decline and would benefit from skilled therapy intervention to restore function;patient has the need for more than one skilled therapy service SUBJECTIVE: Subjective: Patient is agreeable to PT treatment using a 'yes' head nod. Patient's ududee-vu-yev present and provides positive encouragement to patient throughout session Pain Assessment: Pain Location #1 Pain Scale/Observation: Behaviors Behaviors/Assumed Pain Present : Calm PRECAUTIONS: Weight Bearing Status: (no restrictions) Activity Level: Up ad bigg Other Precautions: Fall, Helmet OBJECTIVE: At start of therapy session, patient found in bed, with no alarm and family member present General Appearance:??Adult female, in NAD; helmet donned for upright activity LDAs:??IV's:??Peripheral line, PEG Tube Vitals: patient is asymptomatic on room air throughout session Mental Status/Cognition: Level of Consciousness-Adult: Drowsy (more alert/awake during seated activity) Orientation Level: Unable to Obtain Cognition: Follows one step commands;Processing-delayed;Judgement-decreased;Safety awareness-decreased Mobility: A gait belt and non-slip socks were used for all out of bed activity this date. Bed Mobility: Rolling: Moderate Assistance to Left;Maximal Assistance to Right Supine to Sit: Maximum Assistance;X 2 (patient initiates movement with RUE and RLE) with HOB in semi-fowlers position Sit to Supine: Maximum Assistance;X 2 (patient lifts RLE up onto bed) Transfers: Sit to Stand: Moderate Assistance;X 2 (with RUE assist and bilateral knee block in Sera Steady) Stand to Sit: Moderate Assistance;X 2 (with RUE assist and bilateral knee block in Sera Steady) Transfer Device: Gait belt;Standing and Raising Aide (Sera Steady) Balance: Sitting - Static: Fair -;With One Upper Extremity Support (fatigues into R posterolateral trunk lean) Sitting - Dynamic: Poor +;With One Upper Extremity Support Standing - Static: Poor +;With One Upper Extremity Support (and bilateral knee block in Sera Steady) Standing - Dynamic: Not tested Therapeutic Exercises: 1/2 stand<>full stand with RUE assist and bilateral knee block in Sera Steady: x10 ACTIVITY TOLERANCE: Patient's activity tolerance: patient completed 20 minutes of upright activity this session TREATMENT/INTERVENTIONS: Patient seen for bed mobility training, transfer training sit<>standusing Sera Steady, sitting and standing balance training Modified Maryann: Current Modified [place] Score: 5 AM-PAC 6 Clicks Mobility Raw Score:: 8 EDUCATION: While performing PT,??Patient??was instructed in: functional mobility training, weight bearing status, safety awareness/fall precautions, discharge planning, use of call light? Presented to patient who demonstrates??Fair??understanding of instructions given. ? ASSESSMENT: Patient would benefit from additional Physical Therapy sessions to achieve the following functionalgoals to enhance independence. ?? Short Term Goals: Goal Formation?Patient unable to participate in goal formulation Patient will perform bed mobility??with moderate assist Patient will transfer bed to/from chair??with maximal assist Patient will sit EOB x10 minutes with minimal assist ?? Environmental Marketer Goal(s): Patient to discharge to appropriate next level of inpatient care. ?? INFORMED CONSENT TO TREATMENT:? Plan of care including recommended therapy, goals and frequency, discussed with patient who??demonstrates understanding??and agrees to proceed. ?? Equipment Issued:??none? Plan:??Patient continues to benefit from skilled therapy services. If patient is discharged from the facility, this note serves as a discharge summary if further physical therapy visits did not occur. Refer to filed flowsheet for further details. Following therapy session, patient left in bed, with call light within reach, with family in room, with therapy cues visible on white board. * Maru Mcduffie RN - 11/10/2022 9:59 AM CDT Care Coordination Progress Note Anticipated level of care at discharge: Acute Rehab Facility: Anticipated level of care provider: [facility] ([facility] Anticipated Discharge Date: 11/13/22: Discharge Plan: [facility] Rehab once medically ready. Orientation Level: Oriented X4: Family Support (Name and Phone): Extended Emergency Contact Information Primary Emergency Contact: Hi Darby Address: [address] [place] [id number] [facility] Relation: Spouse Secondary Emergency Contact: Sandra Disla [facility] Mobile Relation: Mother Transportation at Discharge: Ambulance: READMISSION RISK SCORE is 16 at 9:59 AM 11/10/2022.: Name: Maru Mcduffie RN [id number] * Hi Paige MD - 11/10/2022 7:38 AM CDT GI Consult Progress Note Subjective: HPI: 41 year old??female??with PMH of HTN, migraine, GERD, presented on??10/19/2022??as code stroke due to acute onset left sided weakness, left sided sensory deficits, and dysarthria. We were consulted for oropharyngeal dysphagia and placed a PEG tube on 11/01. Patient has had recurrent fevers prompting ID consult. She had CT scan for further evaluation with concern for abscess at inferior aspect of PEG tube for which we are re-consulted. Interval History: Called back for concern of abscess at inferior aspect of PEG tube. Patient not having pain at site.Vitals are stable but with recurrent fevers. Objective: Physical Exam: BP 115/52 Pulse 102 Temp (!) 101.2 ??F (38.4 ??C) Resp 17 Ht 1.626 m (5' 4 ) Wt 95.3 kg (210 lb) SpO2 96% Wt Readings from Last 3 Encounters: 11/06/22 95.3 kg (210 lb) 11/09/22 95.3 kg (210 lb 1.6 oz) 10/23/22 95.3 kg (210 lb) General: no distress HEENT: conjunctivae/corneas clear Neck: supple Lungs: no increased work of breathing Heart: Normal rate Abdomen: soft, non-tender, non-distended. PEG tube in place 6cm a skin and 8cm at external bumper Rectal: deferred Extremities: no edema Neuro: alert Labs: Recent Labs Component Name 11/10/224 11/10/22 0223 11/09/22 0237 11/08/22 2346 11/08/22 0254 11/07/22 2234 11/07/22 0305 11/06/22 2312 11/06/22 0136 10/23/22 0129 10/22/22 0153 WBC 3.6 - - 5.2 - 4.7 - 4.7 6.5 7.9 - - HGB 9.4* - - 10.4* - 9.2* - 9.3* 10.0* 9.7* - - MCV 91.0 - - 92.2 - 92.8 - 92.2 95.9 92.1 - - PLT - - - - - - - - - - 199 INR - 1.8 1.6 - 1.6 - 1.6 - 1.4 - - - = values in this interval not displayed. Recent Labs Component Name 11/10/22 0223 11/08/22 2346 11/07/22 2234 NA 136 141 141 CL 105 107 108* CO2 24 24 22 BUN 13 9 8 CREATININE 0.52* 0.45* 0.53* Recent Labs Component Name 11/09/22 0654 10/19/22 0824 06/15/22 0757 AST 67* 19 17 ALT 77* 16 9 ALKPHOS 73 52 44 TBILI 0.3 0.1* 0.1* ALB 2.6* 3.5 3.6 Imaging: CT ABDOMEN PELVIS W CONTRAST Result Date: 11/10/2022 IMPRESSION: 1. Progressive soft tissue stranding with gas in the right inguinal region with an inflammatory mass encasing the right femoral vessels with mild narrowing of the femoral artery and moderate narrowing of the femoral vein. This could represent a postsurgical hematoma. Recommend correlation with symptoms and signs of superinfection. 2. Interval placement of a gastrostomy tube with a small gas and fluid collection along the inferior aspect of the gastrostomy tube insertion site and stomach, measuring 2.2 cm. Findings communicated with Dr. Goyal at 2005 hours on 11/09/2022 > Interpreting Provider: Pepe Gonzalez MD on 11/10/2022 12:[address] ANGIO CHEST PULM EMBOLISM Result Date: 11/07/2022 Impression: 1.No evidence of acute pulmonary embolism. There is no radiographic evidence of right heart strain. 2.No other acute process within the chest. > Dictated by Tim Major MD (resident services coordinator). IAlexx have personally reviewed and interpreted this examination/study. > Interpreting Provider: Alexx Lopez on 11/07/2022 10:30 PM XR ABDOMEN KUB PORTABLE Result Date: 11/06/2022 IMPRESSION: Non-obstructive bowel gas pattern. Report dictated by Mc Castro MD, (resident services coordinator). Pepe Ornelas MD have personally reviewed and interpreted this examination/study. > Interpreting Provider: Pepe Gonzalez MD on 11/06/2022 10:[address] HEAD WO CONTRAST Result Date: 11/05/2022 IMPRESSION: 1. Redemonstration of post surgical changes from decompressive hemicraniectomy and evolving large right MCA territory subacute infarct. Interval increased linear hyperdense foci along thecortex of right frontal and parietal lobes could be secondary to evolving cortical laminar necrosisversus developing petechial hemorrhages. Continued attention recommended on short-term follow-up. However no hematoma noted. No evidence of midline shift. These findings were discussed with patient'scare provider, Dr. Roth with neurology, by on 11/05/2022 5:46 PM with read back verification. > Interpreting Provider: Oriana Suarez MD on 11/05/2022 5:48 PM Procedures: EGD w/ PEG tube placement on 11/01: Impression: ? - 1 cm hiatal??hernia. ? - Erosive stress gastritis. ? - Normal examined duodenum. ? - An externally removable PEG placement was ? successfully completed. Some difficuty encountered ? in finding a good location due to the thickness of ? the abdominal wall ? - No specimens collected. Assessment: 41 year old??female??with PMH of HTN, migraine, GERD, presented on??10/19/2022??as code stroke due to acute onset left sided weakness, left sided sensory deficits, and dysarthria. We were consulted for oropharyngeal dysphagia and placed a PEG tube on 11/01. Patient has had recurrent fevers prompting ID consult. She had CT scan for further evaluation with concern for abscess at inferior aspect of PEG tube for which we are re-consulted. ?? Oropharyngeal dysphagia s/p PEG tube and now c/b abscess Recommendations: ?? Agree with ID consult for abx recommendations ?? Agree with ACS/IR consult for debridement vs IR drainage ?? Please hold tube feeds Patient and above recommendations WILL BE discussed with GI attending, Dr. Quintana, as well as the primary team. Thank you for allowing us to participate in the care of this patient. Please do not hesitate to contact us with further questions. Salo Paige MD Gastroenterology & Hepatology, PGY-4 Associated attestation - April Quintana MD - 11/10/2022 8:36 PM CDT # Small abscess around the recently place PEG tube site: - She received adequate preop antibiotic coverage with ceftriaxone 2 g IV on 11/01. - Has been experiencing fevers for the last few days - Pending surgical evaluation for treatment of the abscess. - Would hold tube feeding for now. - Serial examination to rule out progression April Quintana MD Home Care Nursefinance analyst at [facility] Advanced Endoscopist Division of Gastroenterology & Hepatology ATTENDING ATTESTATION: I have seen and examined the patient with the resident/fellow and I agree with the findings and plan of care as documented above. * Karishma Ojeda MD - 11/10/2022 7:21 AM CDT Stroke Service Daily Progress Note Consuelo Darby Age: [age] year old Date of : 1980 Date of Admission: 10/19/2022 Hospital Day: 22 Subjective Consuelo Darby is a 41yo woman hemiplegic migraine,??GERD, GENESIS. who developed acute onset L sided weakness, L-sided sensory deficits, and dysarthria. L sided weakness resolved in route and dysarthriaimproved in route. On arrival patient noted to hae L gaze plasy, L hemainopsia, mild dysarthria, and extinction. NIHSS: 7. S/p TNK and ??TICI2b revascularization of the R MCA M1 occlusion.Repeat CTH showing edema in R MCA territory. On 10/20/22 patient taken for hemicraniectomy, post-op CTH showing stable midline shift. Initial hypercoag work up negative, repeat in 2 months. ?? -10/23- SARAH concerning for aortic cusp vegetations. [...] and patch angioplasty. 10/31: CT A/P obtained 04/13 concern for abscess by GI team while evaluating her for G tube 11/01 CT A/P obtained and no abscess was identified in the abdominal area. Postsurgical changes after vascular surgery. ?? 11/02 GI to take her to OR for G tube. Ready TTF. 11/03 start warfarin bridge 11/04 CT head for headache and eye discomfort after bumping her head on hemicrani site. NSGY aware and evaluated her. CT looks stable. 11/05 had a fever. Infectious workup initiated and ID reconsulted. Plan to broaden spectrum (currently on ceftriaxone + vanc, switch to cefe + vanc + doxycycline ) after blood cultures are taken 11/06: no acute event. On heparin gtt. Warfarin bridge. INR 1.4. ?? Interval History: Patient had no acute events occur overnight. Still febrile. Objective Patient Vitals for the past 24 hrs: BP Temp Temp src Pulse Resp SpO2 11/10/22 0503 115/52 (!) 101.2 ??F (38.4 ??C) -- 102 -- 96 % 11/09/22 2035 121/68 98.7 ??F (37.1 ??C) Axillary 107 17 98 % 11/09/22 1759 125/57 (!) 100.2 ??F (37.9 ??C) Axillary 99 14 99 % 11/09/22 1756 -- (!) 100.2 ??F (37.9 ??C) Axillary -- -- -- 11/09/22 1333 -- (!) 101.1 ??F (38.4 ??C) -- -- -- -- 11/09/22 1202 126/73 (!) 101.1 ??F (38.4 ??C) Axillary 102 16 99 % 11/09/22 0739 124/84 (!) 102.6 ??F (39.2 ??C) Rectal 107 -- 95 % Intake/Output Summary (Last 24 hours) at 11/10/2022 0722 Last data filed at 11/10/2022 0532 Gross per 24 hour Intake 4242 ml Output 2400 ml Net 1842 ml Exam: Cortical Function Mental Status Awake, alert, follows basic commands Orientation REYNOLD Language No verbal output Visual Powell Intact bilaterally to confrontation Neglect No visual neglect noted, no tactile neglect noted ?? Cranial Nerves II Pupils 3 mm and bilaterally reactive to light. Fundoscopic exam not performed. VIII Hearing is intact bilaterally to voice. III/IV/ Extraocular muscles intact. No diplopia, ptosis, nystagmus or convergence abnormalities noted. IX/X REYNOLD V REYNOLD XI Head turning and shoulder shrug are intact. VII L facial palsy XII Tongue is midline with normal movements and no atrophy noted. ?? Motor Function Movement No abnormalities noted Bulk No abnormalities noted Tone No abnormalities noted ?? Moves RUE and RLE, tries to withdraw to pain in LUE and LLE ?? Sensory Light Touch REYNOLD Noxious Stimuli Symmetric and intact bilaterally ?? Labs: Recent Labs Component Name 11/10/2222311/08/22234511/07/224 10/23/22 0129 10/22/22 0153 WBC 3.6 5.2 4.7 - - RBC 3.23* 3.59* 3.18* - - HGB 9.4* 10.4* 9.2* - - HCT 29.4* 33.1* 29.5* - - PLT - - - - 199 - = values in this interval not displayed. Recent Labs Component Name 11/10/2222211/08/22234511/07/224 NA 136 141 141 CL 105 107 108* CO2 24 24 22 BUN 13 9 8 CREATININE 0.52* 0.45* 0.53* CALCIUM 8.4 8.5 8.6 No results for input(s): MG in the last 52811 hours. Recent Labs Component Name 11/10/22 0223 11/08/22 2346 11/07/22 2234 PHOS 3.9 3.8 4.3 Recent Labs Component Name 11/10/22 0223 11/09/22 0237 11/08/22 0254 11/07/22 0305 11/06/22 2312 11/06/22 1830 11/06/22 0740 PT 20.5* 18.9* 18.3* - - - - INR 1.8 1.6 1.6 - - - - PTT - - - - 63.4* 68.6* 97.1* - = values in this interval not displayed. No results for input(s): A1C in the last 55110 hours. Recent Labs Component Name 10/20/22 0302 06/15/22 0757 CHOL 173 204* HDL 42 37* LDLCALC 91 117* TRIG 201* 251* Recent Labs Component Name 11/06/22 0136 TSH 1.682 No results for input(s): CKMB, CKTOTAL, CKMB, TROPONINI, BNP in the last [address] ABDOMEN PELVIS W CONTRAST Result Date: 11/10/2022 PROCEDURE: CT ABDOMEN PELVIS W CONTRAST DATE/TIME OF EXAM: 11/09/2022 4:49 PM CLINICAL INFORMATION: None relevant/not provided if blank. 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 TECHNIQUE: CT of the abdomen and pelvis was performed following intravenous contrast utilizing standard protocol. CT dose reduction technique was used, including Automated Exposure Control. CONTRAST: IOPAMIDOL 76 % IV SOLN:100 mL FINDINGS: Lung bases are clear. Liver is normal. The gallbladder is absent. The spleen is normal. The pancreas is normal. There is a duodenal diverticulum. Both adrenal glands are normal. Both kidneys enhance symmetrically with no hydronephrosis. T he urinary bladder is decompressed with a Puentes catheter. Uterus is normal. A gastrostomy tube is present. There is a 2 cm rim-enhancing collection along the inferior aspect of the gastrostomy tube with small locule of gas seen on series 6 image 67 measuring 2.2 cm. There is no bowel obstruction. There is progressive soft tissue stranding with a mass in the right groin measuring 4 cm with small locules of gas, likely inflammatory mass. There is mass effect on the right femoral artery with mild narrowing as marked narrowing of the femoral vein, encased by the collection. Abdominal aorta is normal in caliber. The portal vein is patent. No suspicious osseous lytic or blastic lesion. IMPRESSION: 1. Progressive soft tissue stranding with gas in the right inguinal region with an inflammatory mass encasing the right femoral vessels with mild narrowing of the femoral artery and moderate narrowing of the femoral vein. This could represent a postsurgical hematoma. Recommend correlation with symptoms and signs of superinfection. 2. Interval placement of a gastrostomy tube with a small gas and fluid collection along the inferior aspect of the gastrostomy tube insertion site and stomach, measuring 2.2 cm. Findings communicated with Dr. Goyal at 2005 hours on 11/09/2022 > Interpreting Provider: Pepe Gonzalez MD on 11/10/2022 12:[address] ANGIO CHEST PULM EMBOLISM Result Date: 11/07/2022 PROCEDURE: CT ANGIO CHEST PULM EMBOLISM, DATE/TIME OF EXAM: 11/07/2022 5:25 PM, LOCATION [facility] INDICATION: R50.9: Fever, unspecified fever cause ADDITIONAL CLINICAL INFORMATION:Ordering Provider Reason For Exam: PE, fever COMPARISON: CT chest abdomen pelvis with contrast dated 10/25/2022. TECHNIQUE: CT of the chest was performed following the uneventful administration of 100mL of Isovue 370 intravenous contrast according to [...] suspicious pulmonary nodules are identified. No pleural fluidor pneumothorax is present. Heart and Pericardium: The cardiac chambers are normal in size. No pericardial fluid or thickening is present. There is no radiographic evidence of right heart strain. Mediastinum and Isabel: No enlarged lymph nodes are present. Bones and Chest Wall: Bone windows demonstrate no suspicious lytic or blastic lesions. The visible osseous structures are intact. Upper Abdomen:The visible portions of the upper abdominal organs are normal. Impression: 1.No evidence of acute pulmonary embolism. There is no radiographic evidence of right heart strain. 2.No other acute process within the chest. > Dictated by Tim Major MD (resident services coordinator). I, Alexx Lopez have personally reviewed and interpreted this examination/study. > Interpreting Provider: Alexx Lopez on 11/07/2022 10:30 PM ECHO COMPLETE Result Date: 11/07/2022 ??? Left??Ventricle: Left ventricle size is normal. EDV Index BP is 55.3 mL/m2. ESV Index BP is 18.3 mL/m2. Normal wall thickness. LVPWd is 1.01 cm. Ventricular mass is normal. Mass index 2D is 61.25g/m2. Normal systolic function with a visually estimated EF of 65 - 70%. EF by 2D Abarca biplane is 67%. Normal wall motion. Normal diastolic function. Normal mean left atrial pressure. Tissue Doppler velocity is reduced. MV peak E velocity is 102.695 cm/s. MV e' lateral velocity is 14.141 cm/s. MV e' septal velocity is 10.702 cm/s. ??? Right ventricle size is normal. Normal free wall thickness.RV wall thickness is 0.5 cm. Normal wall [...] mmHg). IVC is normal in size. SVC wasnot assessed. ??? Estimated sPAP is 23.0 mmHg. Estimated RVSP is 23.0 mmHg. RAP is 3.0 mmHg. Mean PA pressure of 15 mmHg. PVR < 1.5 Wood units. ? ? Normal valve morphology nd function. ? ? No pericardial effusion. ??? Normal sized annulus, sinus of Valsalva (aortic root), ascending aorta, aorticarch, descending aorta and abdominal aorta. Normal echocardiogram by 2D, m-mode, color and spectralDoppler echocardiography. IR INTRACRANIAL MECH THROMBECT Result Date: 11/07/2022 PROCEDURE: IR INTRACRANIAL MECH THROMBECT DATE/TIME OF EXAM: 10/19/2022 10:41 AM Procedure: CerebralAngiogram and Mechanical Thrombectomy for Acute Stroke Comparison Study: History: 41 year oldwith GERD, tobacco, p/w left sided neglect both sensory and visual, LWK 6:30, s/p TNK. CTA 1 M1 occlusion.Will take to IR for a mechanical thrombectomy. Notification Time: 8:21 NIHSS Score: 6 ASPECTS: 9 In-room: 8:48 Puncture Time: 8:53 Location of Clot: R M1 MCA Initial TICI: 0 Time to Clot: 9:37 Time to Reperfusion: 9:54 Final TICI: 2b Pit Slagman: Dr. Mitali Walter Meteorologist In Charge(s): Isak Monte Vessels: Ultrasound Guided Access of Femoral Artery Ultrasound Guided Access of Radial Artery Arterial line placement in the right radial artery Right Common Carotid Artery Angiogram: Cerebral Intracranial Catheterization Mechanical Thrombectomy with Retrievable Stent and Reperfusion Catheter Angiography Through the Existing Catheter Right Femoral Artery Angiogram Anesthesia: General Anesthesia was performed and monitored by an attending Anesthesiologist and their technical services assistant throughout the entirety of the case Procedural Detail: The risks, benefits, and alternatives to procedure were discussed in detail with the patient and her family. These included but were not limited to the risk of blood loss, vessel injury, stroke, renal injury, and contrast allergy. The patient was brought to the biplane a ngiography suite where she underwent prep and drape procedures. Limited ultrasound of the right radial artery demonstrated a patent vessel. A 5 new zealander sheath was placed in the radial artery and was used as an arterial line. Limited ultrasound of the common femoral artery demonstrated a patent vessel. The take off of the profunda and other arteries were identified. A scott scale image was documented. The right common femoral artery was accessed using a micropuncture needle. The needle entry was documented. Following a series of exchanges, a 8 Russian sheath sheath was placed in the right femoralartery. A Guide and a 6 Russian Penumbra Select Serrano 2 catheter along with a stiff 0.035 Glidwirewas navigated into the aortic arch. The catheter was used to select brachiocephalic artery followedby the right common carotid artery and finally [...] then removed from the arterial system. After 5min were allowed to elapse for maximal [...] system. Hemostasis was achieved using a 8 Russian Angio-Seal closure device. Hemostasis was immediate at [...] revascularization on the MCA territory was visualized. Impression: 1. TICI2b revascularization of the R MCA M1 occlusion. Location of Clot: Right M1 segment Initial TICI: 0 Final TICI: 2b I, Dr. Jim Walter, was present and performed/supervised theentire procedure. I, Jim Walter MD have personally reviewed and interpreted this examination/study. > Interpreting Provider: Jim Walter MD on 11/07/2022 9:21 AM XR ABDOMEN KUB PORTABLE Result Date: 11/06/2022 PROCEDURE: XR ABDOMEN KUB PORTABLE, DATE/TIME OF EXAM: 11/05/2022 5:28 PM, LOCATION [facility] INDICATION: R50.9: Fever, unspecified fever cause ADDITIONAL [...] pattern. Report dictated by Mc Castro MD, (resident services coordinator). I, Pepe Gonzalez MD have personally reviewed and interpreted this examination/study. > Interpreting Provider: Pepe Gonzalez MD on 11/06/2022 10:[address] HEAD WO CONTRAST Result Date: 11/05/2022 PROCEDURE: CT HEAD WO CONTRAST DATE/TIME OF EXAM: 11/05/2022 12:11 AM CLINICAL INFORMATION: None relevant/not provided if blank. 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 CT dose reduction technique was used, including Automated Exposure Control. FINDINGS: Redemonstration of postsurgical changes from decompressive right frontal parietotemporal craniectomy. Unchanged herniation of the right frontoparietal and temporal lobes through the craniectomydefect. Unchanged evolving large right MCA territory infarction involving the right frontal parietal and temporal lobes. 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 No significant midline shift. Unchanged ex vacuo dilation of the right lateral ventricle. There is interval increase in cortical hyperdensity involving the right parietal, frontal lobes (image 11, 12, 14, series 3). Extra-axial fluid collection overlying the herniated right cerebral convexity measuring 1.5 cm in thickness, not significantly changed compared to prior study. No interval change in the scott- white matter differentiation. No significant opacification of the mastoid or paranasal sinuses. No acute soft tissue findings or calvarial findings. IMPRESSION: 1. Redemonstration of post surgical changes from decompressive hemicraniectomy and evolving large right MCA territory subacute infarct. Interval increased linear hyperdense foci along thecortex of right frontal and parietal lobes could be secondary to evolving cortical laminar necrosisversus developing petechial hemorrhages. Continued attention recommended on short-term follow-up. However no hematoma noted. No evidence of midline shift. These findings were discussed with patient'scare provider, Dr. Roth with neurology, by on 11/05/2022 5:46 PM with read back verification. > Interpreting Provider: Oriana Suarez MD on 11/05/2022 5:48 PM XR CHEST 1VW PORTABLE Result Date: 11/05/2022 PROCEDURE: XR CHEST 1VW PORTABLE, DATE/TIME OF EXAM: 11/05/2022 9:38 AM, LOCATION [facility] INDICATION: R50.9: Fever, unspecified fever cause ADDITIONAL CLINICAL INFORMATION: Ordering Provider Reason For Exam: consolidation COMPARISON: Chest radiograph 10/29/2022. FINDINGS/IMPRESSION: Previously seen feeding tube has been removed. These no confluent consolidation, pleural effusion, or pneumothorax is noted. The cardiomediastinal silhouette is stable. No acute osseous abnormality is noted. Report dictated by Christopher Tobin MD, MD (resident services coordinator). I, HEATHER FREGOSO MD have personally reviewed and interpreted this examination/study. > Interpreting Provider: HEATHER FREGOSO MD on 11/05/2022 2:[address] ABDOMEN WO CONTRAST Result Date: 11/02/2022 PROCEDURE: CT ABDOMEN WO CONTRAST, DATE/TIME OF EXAM: 2022 6:47 PM, LOCATION [facility] INDICATION: Z93.1: Presence of externally removable percutaneous endoscopic gastrostomy (PEG) tube (CMS/HCC) ADDITIONAL CLINICAL INFORMATION: Ordering Provider Reason For Exam: diffcult percutaneous PEG tube placement, rule out complications COMPARISON: CT abdomen pelvis with contrast dated 10/31/2022 TECHNIQUE: CT of the chest, abdomen, and pelvis was performed without contrast according to standard protocol. Findings: Evaluation of visceral and vascular structures is degraded due tolack of intravenous contrast administration. Lines/tubes: *Interval placement of a percutaneous trudi rostomy tube with intraluminal placement of tip and [...] Bone windows demonstrate no suspicious lytic or blasticlesions. The visible osseous structures are intact. Soft tissues: Normal. Impression: Interval placement of a percutaneous gastrostomy tube with intraluminal placement of tip and inflated balloon within the body/antrum of the stomach without complication, as clinically queried.. > Dictated by Tim Major MD (resident services coordinator). I, Pepe Gonzalez MD have personallyreviewed and interpreted this examination/study. > Interpreting Provider: Pepe Gonzalez MD on 11/02/2022 1:[address] ABDOMEN PELVIS W CONTRAST Result Date: 10/31/2022 PROCEDURE: CT ABDOMEN PELVIS W CONTRAST, DATE/TIME OF EXAM: 10/31/2022 10:16 AM, LOCATION [facility] INDICATION: I33.0: Aortic valve vegetation ADDITIONAL CLINICAL INFORMATION: Ordering Provider Reason For Exam: abscess? Technologist Note: Additional: COMPARISON: CT chest abdomen and pelvis 10/25/2022. TECHNIQUE: CT of the abdomen and pelvis was performed following the uneventful administration of 100 mL of Isovue 370 intravenous contrast according to standard protocol. Findings: Lower Chest: Bibasilar subsegmental atelectasis present. Liver: Normal. Gallbladder and Bile Ducts: The gallbladder is absent. Spleen: Normal. Pancreas: Normal. Adrenals: Normal. Kidneys: Normal. Bladder: A Puentes catheter terminates within a decompressed urinary bladder. Gastrointestinal: Enteric tube terminates in the stomach. Duodenal diverticulum present. The stomach and visualized loops of large and small bowel are otherwise unremarkable. Normal appendix. Mesentery/Peritoneum/Retroperitoneum: Normal. Reproductive Organs: The uterus is normal. Vasculature: There is been interval postsurgical changes to the right common femoral/external iliac artery region with previously seen thrombus in this region no longer visualized. There is however irregularity of the distal right external iliacand proximal right common femoral artery and mild narrowing in this region likely resenting postsurgical changes. Questionable flap in the proximal common femoral artery (series 3 image 153). Bones: Bone windows demonstrate no suspicious lytic or blastic lesions. The visible osseous structures are intact. Soft tissues: There is extensive soft tissue stranding edema and fluid throughout the right groin with multiple foci of subcutaneous gas along likely represent post surgical changes. Although there is focal fluid was prominent at series 3, image 153 in this region no rim- enhancing drainable fluid collections are appreciated at this time. Impression: 1.Interval postsurgical changes to the distal right external iliac/proximal right common femoral arteries with previously seen thrombus in this region no longer visualized. There is however irregularity of the artery in this region with mild narrowing which is favored to represent postsurgical changes. Questionable flap within the proximal common femoral artery as detailed above. 2.Extensive soft tissue stranding, edema and fluid along with subcutaneous gas in the right groin likelyrepresenting postsurgical changes. Although there is focal fluid in this region, no rim-enhancing drainable fluid collections are appreciated at this time. > Interpreting Provider: Alexx Lopez on 10/31/2022 11:[address] HEAD WO CONTRAST Result Date: 10/31/2022 EXAM: CT HEAD WO CONTRAST, DATE/TIME OF EXAM: 10/30/2022 8:22 PM, LOCATION: [facility] HISTORY: I63.511: Right middle cerebral artery stroke (CMS/HCC) ADDITIONAL CLINICAL INFORMATION: Ordering Provider Reason For Exam: Heparin supratherapeutic bleed follow up. EXAMINATION: CT scan of the head without intravenous contrast TECHNIQUE: CT of the head was performed without intravenouscontrast according to standard protocol. CT dose reduction technique was used, including Automated Exposure Control. COMPARISON: Head CT 10/28/2022. Brain MRI 10/24/2022. FINDINGS: See impression. IMPRESSION: Compared to prior head CT 10/28/2022: 1.Re-demonstrated postsurgical changes of decompressive right frontoparietotemporal craniectomy with multiple overlying scalp carla. Evolving heterogeneous subdural hematoma along the right frontotemporal convexity measuring up to 8 mm in maximal thickness (5/32), previously measuring up to 9 mm in thickness. 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 Increased conspicuity of a thin hyperdensity along the cortex within this region suggestive of evolving cortical laminar necrosis. 3.Re-demonstrated small hypodensity of the left inferior frontal gyrus/frontal operculum, consistent with an evolving [id number] infarct. 4.No significant midline shift. Similar-appearing size and configuration of the ventricles without evidence of hydrocephalus. Basal cisterns are patent. 5.No other convincing change. Partially imaged left nasoenteric tube. > Interpreting Provider: Amanda Real MD, PhD on 10/31/2022 1:26 AM FL GLENN W ANGIO TEAM Result Date: 10/30/2022 Fluoroscopy was used for this exam in the OR. Please see the Operative report. XR CHEST 1VW PORTABLE Result Date: 10/29/2022 PROCEDURE: XR CHEST 1VW PORTABLE, DATE/TIME OF EXAM: 10/29/2022 10:29 AM, LOCATION [facility] INDICATION: R09.02: Hypoxia ADDITIONAL CLINICAL INFORMATION: Ordering Provider Reason For Exam: evaluate for hypoxia COMPARISON: Chest x-ray from 10/27/2022 FINDINGS/IMPRESSION: Enteric tube is seen coursing over the diaphragm without visualization of the distal tip. There is no focal consolidation, pleural effusion, or pneumothorax. The cardiomediastinal silhouette is normal. Report dictated by Jacques Russell DO (resident services coordinator). Jacques Ornelas DO have personally reviewed and interpreted this examination/study. 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 Report dictated by Jacques Russell DO (resident services coordinator). Jacques Ornelas DO have personally reviewed and interpreted this examination/study. 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 FINDINGS/IMPRESSION: Enteric tube courses below the diaphragm with the distal tip superimposing the antropyloric region. Report dictated by Martell Shetty MD (resident services coordinator). Jacques Ornelas DO have personally reviewed and interpreted this examination/study. > Interpreting Provider: Jacques Cole DO on 10/28/2022 12:[address] HEAD WO CONTRAST Result Date: 10/28/2022 PROCEDURE: CT HEAD WO CONTRAST, DATE/TIME OF EXAM: 10/28/2022 5:28 AM, LOCATION [facility] INDICATION: Z91.89: At high risk for bleeding after thrombolytic therapy monitor for hemorrhagic bleed given heparin use in massive stroke EXAMINATION: Computed tomography (CT) of the head without contrast TECHNIQUE: CT of the head was performed without contrast according to standard protocol. CT dose reduction technique was used, including Automated Exposure Control. COMPARISON: CT head without contrast dated 10/27/2022 FINDINGS: Redemonstrated are postoperative changes of decompressiveright frontoparietotemporal craniectomy, with multiple overlying scalp carla. Redemonstrated slightly heterogeneous subdural hemorrhage along the right frontotemporal convexity measuring 9 mm in the maximal thickness (series 3 image 17), without significant change compared to prior study. Redemonstrated evolving right MCA infarct. There is moderate mass effect on the right lateral ventricle. There is again associated mild external herniation through the craniectomy site. Unchanged gyriform hyperdensity within the infarcted area which may represent laminar necrosis. Small volume of subarachnoid hemorrhage cannot be completely ruled out. No new acute intracranial hemorrhage. The ventricles are mildly dilated compared to 10/19/2022, otherwise unchanged compared to 10/27/2022. The basal cisterns are patent. No midline shift is seen. Unchanged small focus of hypoattenuation in the left frontal lobe (series 3 image 20) likely represents a small subacute infarct. Partially visualized nasogastric tube. The visualized portions of the orbits, paranasal sinuses, and mastoids appear normal. No acute calvarial fracture is identified. IMPRESSION: 1. Evolving right MCA subacute infarct status post decompressive craniectomy. Grossly unchanged right frontotemporal subdural hemorrhage. Grossly unchanged gyriform hyperdensity in the infarcted area may represent subarachnoid hemorrhage. No midline shift. Unchanged mildly dilated ventricles may represent mild hydrocephalus. 2. Unchanged small focus of hypoattenuation in the left frontal lobe likely represents additional subacute infarct. The report is dictated by Kayla Stevenson MD (resident services coordinator) 1 I, Lonnie Rae MD have personally reviewed and interpreted this examination/study. > Interpreting Provider: Lonnie Rae MD on 10/28/2022 9:15 AM XR CHEST 1VW PORTABLE Result Date: 10/27/2022 PROCEDURE: XR CHEST 1VW PORTABLE, DATE/TIME OF EXAM: 10/27/2022 10:19 AM, LOCATION [facility] INDICATION: D72.829: Leukocytosis, unspecified type ADDITIONAL CLINICAL INFORMATION: Ordering Provider Reason For Exam: any concern for pneumonia COMPARISON: Chest radiograph dated 10/25/2022. FINDINGS/IMPRESSION: Enteric tube courses below the diaphragm and out of the [id number]. RUQ surgical clips are present. No focal consolidation. No pleural effusion or pneumothorax. The cardiomediastinal silhouette is normal. Report dictated by Agnes Olmos DO (resident services coordinator). I, Pepe Gonzalez MD have personally reviewed and interpreted this examination/study. 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 COMPARISON: 10/26/2022. FINDINGS: Redemonstration of postoperative anisha nges of decompressive right cranioplasty. An evolving extra-axial hematoma is again noted in the craniotomy site. Small volume subarachnoid hemorrhage is is again seen in the right cerebral sulci. Again noted is herniation of the intracranial contents through the craniectomy defect. Again demonstrated is an evolving subacute infarct in the nearly entire right MCA distribution, grossly unchanged. There is persistent mass effect on the lateral ventricle. A small hypoattenuating focus is again noted in the left frontal lobe, which may represent a small subacute infarct. The ventricles are stable. The basal cisterns are patent. No midline shift. The scott-white matter differentiation is normal. The visualized portions of the orbits, paranasal sinuses, and mastoids appear normal. No acute calvarial fracture is identified. IMPRESSION: 1. Redemonstration of evolving right MCA subacute infarct, status post right decompressive craniectomy. The extra-axial hematoma underlying the craniectomy site and subarachnoid hemorrhage in the right cerebral sulci are grossly unchanged. Mass effect on the right lateral ventricle is unchanged. No significant midline shift. 2. Small focus of likely a subacute infarct in the left frontal lobe is unchanged. > Interpreting Provider: Lonnie Rae MD on 10/27/2022 12:10 PM XR CHEST 1VW PORTABLE Result Date: 10/26/2022 PROCEDURE: XR CHEST 1VW PORTABLE, DATE/TIME OF EXAM: 10/25/2022 9:41 AM, LOCATION [facility] INDICATION: I63.511: Right middle cerebral artery stroke (CMS/HCC) ADDITIONAL CLINICAL INFORMATION: Ordering Provider Reason For Exam: Atlectasis/mucus plugging Comparison: Chest x-ray from10/23/2022, and CT chest, abdomen, pelvis from same day FINDINGS/IMPRESSION: Interval removal of theendotracheal tube. Enteric tube courses below the diaphragm and out of the [id number]. There is severe left rotation of the patient in this study. There is no focal consolidation, pleural effusion, or pneumothorax. The left upper lobe pulmonary nodule noted on chest CT from same day is not visualized on this plain film. The cardiomediastinal silhouette is normal. The visible bony thorax is intact. Report dictated by Royer Stovall MD (resident services coordinator). I, Alexx Lopez have personally reviewed and interpreted this examination/study. 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 COMPARISON: Comparison ismade with a CT head dated 10/25/2022. FINDINGS: Redemonstration of postoperative changes of right decompressive hemicraniectomy. Redemonstration of large volume confluent acute infarct in the right MCA territory involving the right frontal parietal temporal and insular regions and basal ganglia. Redemonstration of mild herniation of the right frontoparietal and temporal regions through the craniectomy defect. Redemonstration of a curvilinear extra-axial/extracranial fluid collection overlying the right cerebral convexity containing debris and blood products, measuring about 7 mm in thickness not significantly changed compared to prior study. Redemonstration of linear foci of hyperdensity along the evolving infarct most likely secondary to prominent vasculature. No new hyperdense foci within the evolving infarct. No evidence of transtentorial or tonsillar herniation. Station a mass effectfrom the large evolving right MCA territory infarct with effacement of sulci, and effacement of theright lateral ventricle. There is a large area of recent infarction seen in the right hemisphere inthe MCA territory with associated mass effect and some effacement of the right lateral ventricle grossly unchanged from prior. There are foci of hypoattenuation consistent with small evolving subacute to acute infarcts within the left frontal lobe periventricular white matter and left martínez radiata extending up to the left frontal subcortical regions also unchanged compared to prior study. No new intracranial hemorrhage or intra- or extra-axial fluid collections are identified. The left lateral ventricle, third and fourth ventricles are of normal size, shape, and morphology. The basal cisterns are patent. Leftward midline shift is approximately 2 mm as measured at the foramen of Monro, unchanged from yesterday. The visualized portions of the orbits, paranasal sinuses, and mastoids appearnormal. No acute calvarial fracture is identified. Partially visualized nasal tube IMPRESSION: 1. Redemonstration of evolving large right MCA territory acute to subacute infarct without definite evidence of hemorrhagic transformation. Unchanged minimal leftward midline shift of about 2 mm at the level of foramen of Monro and effacement of the left lateral ventricle. 2. Redemonstration of postsurgical changes from right-sided decompressive hemicraniectomy, unchanged compared to prior study. These results were discussed with stroke resident Dr Mendez by Dr. Miranda Bowen at8:05 AM on 10/26/2022 with read back confirmation and closed-loop communication. The report is dictated by Miranda Bowen MD (resident services coordinator) Oriana Ornelas MD have personally reviewed and interpreted this examination/study. > Interpreting Provider: Oriana Suarez MD on 38:[address] CHEST ABDOMEN PELVIS W CONT Result Date: 10/25/2022 PROCEDURE: CT CHEST ABDOMEN PELVIS W CONT, DATE/TIME OF EXAM: 10/25/2022 12:56 PM, LOCATION [facility] INDICATION: I63.511: Right middle cerebral artery stroke [...] Neck and Axillae: Normal. Lungs: Subsegmental atelectasis ofthe posterior lungs. No pleural fluid or pneumothorax is present. There is a 3 mm nodule in the left upper lobe (image 47 series 5). Heart and Pericardium: The cardiac chambers are normal in size. Nopericardial fluid or thickening is present. Mediastinum and [...] groin. Subcutaneous gas in the lower left anteriorabdominal wall related to subcutaneous injections. Impression: 1.Occlusion [...] abdomen or pelvis Findings discussed with Dr. oMhr by Dr. Clarisa Cantrell at 10/25/2022 3:03 PM with read back comprehension and verification. > Dictated by Clarisa Cantrell MD (resident services coordinator). I, Alexx Lopez have personally reviewed and interpreted this examination/study. 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 COMPARISON: Comparison is made with brain MR [address] head dated 10/23/2022 FINDINGS: There are postoperative ch anges of right hemicraniectomy. There is soft tissue thickening and skin carla overlying the operative defect. There is curvilinear fluid collection collection overlying the right cerebral convexity within the craniectomy defect containing some recent blood products and which measures approximately 22 mm in maximum thickness. There is a large area of recent infarction in the right cerebral hemisphere in the distribution in the distribution of the right middle cerebral artery. Mass effect is produced by this. There is a small amount of midline shift right to left of roughly 2 mm at the levelof the foramen of Monro. There is some compression of the right lateral ventricle. The left lateral ventricle, third, and fourth ventricles are normal in size. There are foci of decreased attenuationconsistent with small recent infarcts within the left frontal lobe and left martínze radiata. Bone window images demonstrate no signal suspicious lytic or blastic lesions. When today's study is compared to the parenchyma of 24 October [address] 23 October, there may be slightly less mass effectand midline shift on today's study and the fluid collection within the craniectomy defect overlyingthe lateral right cerebral hemisphere is slightly smaller. There has been interval removal of the drainage tube that was present within the craniectomy defect on previous brain CT and there is less ai r/gas within the operative defect relative to the previous brain CT. IMPRESSION: Redemonstrated postoperative changes consistent with right calvarial hemicraniectomy. Fluid collection overlying the lateral right cerebral hemisphere within the craniectomy defect containing some recent blood products. The overall size of this fluid collection is less than on previous study. In addition, there is less air/gas within this defect. Evolving large recent right cerebral hemisphere infarct with mass effect and approximately 2 mm of midline shift right to left. There appears to be slightly less mass effect and midline shift on today's study. Continued follow-up is recommended. Small recent cortical infarct in the lateral left frontal lobe as well as small recent infarc t in left martínez radiata which appears similar to previous study. Clinical correlation recommended.The report is dictated by Miranda Bowen MD (resident services coordinator) I, Joni Fabian MD have personally reviewed and interpreted this examination/study. > Interpreting Provider: Joni Fabian MD on 10/25/2022 2:[address] CARDIAC ANGIO STRUCT MORPH Result Date: 10/25/2022 PROCEDURE: CT CARDIAC ANGIO STRUCT MORPH, DATE/TIME OF EXAM: 10/23/2022 3:08 PM, LOCATION [facility] INDICATION: I63.411: Acute cerebrovascular accident (CVA) due to embolism of right middle cerebral artery (CMS/HCC) ADDITIONAL CLINICAL INFORMATION: Ordering Provider Reason For Exam: L atrial valve vegetations Technologist Note: Additional: COMPARISON: None. Procedure: CT structure and morphology with intravenous contrast material, including 3D image post-processing Acquisitionmode: Retrospective ECG gated. Contrast type and volume:Isovue .100 mL. Complications: None.. Imagequality: Good signal noise. There is motion artifact Heart rate: 99 bpm. Coronaries: The coronary arteries are not completely visualized due to motion artifact given the increase heart rate. Within the limitations, coronary arteries are normal in course and morphology and patent without calcification or plaque. Other cardiac findings: Left Atrium: The left atrium is normal size with no left atrial appendage filling defects. Left Ventricle: The ventricular cavity [...] the available limited view of the abdomen. Impression: 1. 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 2. Patent coronary vessels within the limitation of the motion artifact given the elevated heart during this exam > Interpreting Provider: Pepe Gonzalez MD on 10/25/2022 12:03 AM XR ABDOMEN KUB PORTABLE Result Date: 10/24/2022 PROCEDURE: XR ABDOMEN KUB PORTABLE, DATE/TIME OF EXAM: 10/24/2022 2:04 PM, LOCATION [facility] INDICATION: R47.1: Dysarthria ADDITIONAL CLINICAL INFORMATION: Ordering Provider ReasonFor Exam: ngt placement COMPARISON: Portable KUB dated 10/23/2022 FINDINGS/IMPRESSION: The enteric tube courses below the diaphragm with tip superimposing the gastric pyloric region. Drafted by Agnes Olmos DO (resident services coordinator). I, Vanessa Kumar MD have personally reviewed and interpreted this examination/study. > Interpreting Provider: Vanessa Kumar MD on 10/24/2022 2:17 PM MRI BRAIN WWO CONTRAST Result Date: 10/24/2022 PROCEDURE: MRI BRAIN WWO CONTRAST, DATE/TIME OF EXAM: 10/24/2022 10:56 AM, LOCATION [facility] INDICATION: I63.411: Acute cerebrovascular accident (CVA) due to embolism of right middle cerebral artery (CMS/HCC) ADDITIONAL CLINICAL INFORMATION: Ordering Provider Reason For Exam: Stroke workup Technologist Note: Does the patient have a defibrillator, pacemaker, aneurysm clips or implanted mechanical devices?->No Does the patient have metal implants or stents?->No Additional: None. EXAMINATION: Magnetic resonance imaging (MRI) of the brain without and with contrast CONTRAST: GADOBUTROL 1 MMOL/ML IV SSM SO:9.5 mL TECHNIQUE: MRI of the brain was performed prior to and following the uneventful administration of 9.5 mL intravenous GADAVIST contrast according to standard protocol. COMPARISON: CT of the head from 10/23/2022. FINDINGS: Redemonstration of postoperative changes of decompressive right hemicraniectomy with expected interval evolution of the previously seen post surgical changes along the craniectomy site. Redemonstration of extra-axial collection along the craniectomy site containing extra-axial blood products and fluid, measuring approximately 2.4 cm in thickness, (series 9, image 13), previously measured approximately 2.5 cm, grossly unchanged from prior. Interval resolution/redistribution of the previously seen foci of pneumocephalus compared to the prior CT. Interval removal of the previously seen right intracranial pressure monitor. Redemonstration of extensive cytotoxic edema in the right frontotemporoparietal regions, the right insula, and the right basal ganglia, extending along the martínez radiata and the marginally along the lateral aspect of the right centrum semiovale compatible with evolving acute right MCA territory infarction. There is persistent local mass effect on the right cerebral hemisphere with effacement of the overlayingsulci, mild external herniation of the infarcted brain through the craniectomy defect, effacement of the right lateral ventricle, and approximately 3-4 mm [id number] midline shift at the level of the foramen of Monro, (series 13, image 18),, previously measured approximately 3 mm, (series 6, image 35), when remeasured, grossly similar to the prior. Extensive susceptibility artifacts along the craniectomy site compatible with expected postsurgical changes. There are additional scattered foci of restricted diffusion in the left frontoparietal region, extending along the subcortical white matter of the lateral left frontal lobe, the right martínez radiata, and the centrum semiovale, compatible with a small evolving acute to subacute infarcts. Otherwise, no new intracranial hemorrhage is identified. The ventricular caliber appears grossly stable compared to the prior. For reference, the diameter of the left ventricular trigone measures approximately 1.2 cm, (series 4, image 33), previously measured approximately 1.3 cm, (series 4, image 19). The basal cisterns are mildly effaced. The re maining ventricles are of normal size, shape, and morphology. Diffuse leptomeningeal enhancement along the right frontotemporoparietal infarcted area compatible with expected reactive changes. No enhancing lesions are otherwise identified. The corpus callosum and sella appear normal. The posterior fossa, brainstem, and craniocervical junction appear grossly stable. The visualized portions of the orbits appear grossly unremarkable. There is mild paranasal sinus disease. There is suspected minimal opacification in the right mastoid air cells. The remaining mastoid air cells appear grossly clear. Normal flow voids are demonstrated in the carotid arteries and basilar artery. The calvarium and visualized cervical spine otherwise appear normal. IMPRESSION: 1.Redemonstration of postoperative changes of a right hemicraniectomy with expected postsurgical changes as outlined above. 2.Redemonstration of evolving large right MCA territory infarction with extensive cytotoxic edema and mild external herniation of the brain through the craniectomydefect. Persistent local mass effect on the right cerebral hemisphere, effacement of the right lateral ventricle, and approximately 3-4 mm [id number] midline shift, grossly similar to the prior. 3.Mild dilation of the left lateral ventricle may represent subtle left ventricular entrapment, overall grossly similar to prior. 4.Additional multiple foci of abnormal diffusion within the left frontotemporal lobes with associated T2 FLAIR hyperintensity representing additional small acute to subacute infarcts, likely of cardioembolic etiology. Findings communicated to Dr. Mohr by Dr. Major at 1138 hours on 10/24/2022 with readback comprehension and verification. Report dictated by Tim Major MD (resident services coordinator). I, Jasper Sifuentes MD have personally reviewed and interpreted this examination/study. > Interpreting Provider: Jasper Sifuentes MD on 10/24/2022 1:59 PM XR CHEST 1VW PORTABLE Result Date: 10/24/2022 PROCEDURE: XR CHEST 1VW PORTABLE, DATE/TIME OF EXAM: 10/23/2022 8:24 AM, LOCATION [facility] INDICATION: I63.511: Right middle cerebral artery stroke (CMS/HCC) ADDITIONAL CLINICAL INFORMATION: Ordering Provider Reason For Exam: OETT position COMPARISON: Chest radiograph dated 10/21/2022 FINDINGS/IMPRESSION: The enteric tube courses below the diaphragm out of the inferior [id number]. Endotracheal tube terminates in the midthoracic trachea. There is no focal consolidation. No pleural effusion or pneumothorax. The cardiomediastinal silhouette is normal. No acute osseous abnormality. Report dictated by Agnes Olmos DO (resident services coordinator). Vanessa Ornelas MD have personally reviewed and interpreted this examination/study. > Interpreting Provider: Vanessa Kumar MD on 10/24/2022 1:03 PM ECHO SARAH Result Date: 10/24/2022 ??? Aortic??Valve: Valve structure is normal. There is a 6 x 7 mm independently mobile mass on the left coronary cusp. Differential includes vegetation (non- bacterial thrombotic endocarditis, infective endocarditis) vs less likely fibroelastoma. ??? Left??Atrium: No right to left intracardiac or extracardiac shunt present viewable with agitated saline, color Doppler and Valsalva maneuver. Normal sized appendage. Normal appendage flow velocity. No thrombus present in the left atrial appendage (MADELEINE). ??? Left??Ventricle: Left ventricle size is normal. Hyperdynamic systolic function with a visually estimated EF of 75 - 80%. ??? No hemodynamically significant valvular abnormality. XR ABDOMEN KUB PORTABLE Result Date: 10/24/2022 PROCEDURE: XR ABDOMEN KUB PORTABLE, DATE/TIME OF EXAM: 10/23/2022 1:53 PM, LOCATION [facility] INDICATION: R47.1: Dysarthria ADDITIONAL CLINICAL INFORMATION: Ordering Provider ReasonFor Exam: NGT placement COMPARISON: Portable KUB dated 10/20/2022 FINDINGS/IMPRESSION: The enteric tube courses below the diaphragm with tip superimposing the stomach. Drafted by Agnes Olmos DO (resident services coordinator). Vanessa Ornelas MD have personally reviewed and interpreted this examination/study. 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 EXAMINATION: Computed tomography (CT) of the head without contrast TECHNIQUE: CT of the head was performed without contrast according to standard protocol. CT dose reduction technique was used, including Automated Exposure Control. COMPARISON: Comparison is made with a CT head dated 10/22/2022. FINDINGS: Redemonstration of postoperative changes consistent of a right hemicraniectomy with underlying extra-axial blood products along the lateral cerebral convexity and small foci of pneumocephalus, slightly decreased or redistributed compared to prior. Unchanged appearance of a right intracranial pressure monitor. Extensive cytotoxic edema and mass effect in the right MCA territory with associated diffusesulci effacement and right lateral ventricle effacement grossly unchanged from prior. There is a right to left midline shift measuring up to 2 mm, stable to mildly improved from prior. No new intracranial hemorrhage or intra- or extra-axial fluid collections are identified. The ventricular morphology is stable compared to prior exams. The basal cisterns are mildly effaced. The visualized portionsof the orbits appear grossly unremarkable. Minimal opacification in the left ethmoid air cells. Theimaged mastoid air cells appear grossly clear. A presumed nasogastric tube present. Mild dilation of the left lateral ventricle likely representing mild left ventricular entrapment. Hyperdensity along the right sylvian fissure compatible with right MCA thrombosis. No acute calvarial fracture is identified. There is soft tissue edema overlying the right hemicraniectomy site and right zygomatic region are essentially unchanged from prior. IMPRESSION: 1.Redemonstration of postsurgical changes of decompressive craniectomy and evolving right middle cerebral artery territory infarct. 2.No hemorrhagic transformation. 3.Extensive cytotoxic edema and mass effect with approximately 2 mm midline shift, [place] similar or slightly improved from prior. 4.Stable right intracranial pressure monitor. The report is dictated by Miranda Bowen MD(resident services coordinator) IJasper MD have personally reviewed and interpreted this examination/study. 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 COMPARISON: No prior study is available for comparison at the time of this dictation. FINDINGS: Redemonstration of post surgical changes of a right hemicraniectomy, and a right MCA infarct. Stable appearance of right intracran ial pressure monitor. There are extra-axial blood products along the right lateral cerebral convexity at the craniectomy site with associated pneumocephalus consistent with postsurgical changes. There is extensive edema and mass effect in the right MCA territory. There is sulcal effacement and effac ement of the right lateral ventricle. There is right to left midline shift measuring up to 4 mm, stable from prior There is no evidence of new acute intracranial hemorrhage. The ventricular morphology is stable compared to prior examination. The basilar cisterns are patent. The orbits appear normal. The paranasal sinuses are clear. The mastoid air cells are clear. IMPRESSION: 1.Redemonstration of postsurgical changes of decompressive right hemicraniectomy for evolving right middle cerebral artery territory infarct. There is significant edema and mass effect with approximately 4 mm of midline shift, unchanged from prior. No evidence of new acute intracranial hemorrhage. > Interpreting Provider: Lonnie Rae MD on 10/22/2022 3:[address] HEAD WO CONTRAST Result Date: 10/22/2022 PROCEDURE: CT HEAD WO CONTRAST DATE/TIME OF EXAM: 10/22/2022 2:33 PM CLINICAL INFORMATION: None relevant/not provided if blank. 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 FINDINGS: Redemonstration of post surgical changes of a right hemicraniectomy, and a right MCA infarct. Stable appearance of right intracranial pressuremonitor. There are extra-axial blood products along the right lateral cerebral convexity at the craniectomy site with associated pneumocephalus consistent with postsurgical changes. There is extensive edema and mass effect in the right MCA territory. There is sulcal effacement and effacement of theright lateral ventricle. There is right to left midline shift measuring up to 4 mm, stable from prior There is no evidence of new acute intracranial hemorrhage. The ventricular morphology is stable compared to prior examination. The basilar cisterns are patent. The orbits appear normal. The paranasal sinuses are clear. The mastoid air cells are clear. IMPRESSION: 1.Stable appearance of postsurgical changes of decompressive right hemicraniectomy for evolving right middle cerebral artery territory infarct. There is significant edema and mass effect with approximately 4 mm of midline shift, unchanged from prior. No evidence of new acute intracranial hemorrhage. Report dictated by Lorenzo Horta MD (nursing resident). Lonnie Ornelas MD have personally reviewed and interpreted this examination/study. > Interpreting Provider: Lonnie Rae MD on 10/22/2022 3:10 PM XR CHEST 1VW PORTABLE Result Date: 10/21/2022 PROCEDURE: XR CHEST 1VW PORTABLE, DATE/TIME OF EXAM: 10/21/2022 8:53 AM, LOCATION [facility] INDICATION: R53.1: Weakness ADDITIONAL CLINICAL INFORMATION: Ordering Provider Reason ForExam: post intubation COMPARISON: None. Chest radiograph FINDINGS/IMPRESSION: Lines, tubes, hardware: * An endotracheal tube seen with the tip appropriately positioned in the mid thoracic trachea. * Enteric tube is seen with its tip below the diaphragm out of the field of view. Minimal right basilar airspace opacification. Otherwise, no confluent consolidation. No pneumothorax is visible. The cardiomediastinal silhouette is normal. The visible bony thorax is intact. Report dictated by Christopher Tobin MD, MD (resident services coordinator). HEATHER Ornelas MD have personally reviewed and interpreted this examination/study. > Interpreting Provider: HEATHER FREGOSO MD on 10/21/2022 5:59 PM ECHO TRANSTHORACIC W BUBBLE STUDY Result Date: 10/20/2022 ??? Left??Ventricle: Left ventricle size is normal. Normal wall thickness. Normal systolic functionwith a visually estimated EF of 60 - 65%. Normal wall motion. Normal diastolic function. ??? NormalRV size and systolic function. ??? No significant valvular abnormalities. ??? Bubble study negativefor shunt. ??? Normal IVC and visualized portion of aorta. CT HEAD WO CONTRAST Result Date: 10/20/2022 DATE/TIME OF EXAM: 10/20/2022 9:13 PM, LOCATION [facility] INDICATION: I63.411: Acute cerebrovascular accident (CVA) due to embolism of right middle cerebral artery (CMS/HCC) ADDITIONAL CLINICAL INFORMATION: Ordering Provider Reason For Exam: [facility] COMPARISON: Multiple prior studies, most recently CT head dated 10/20/2022 at 8:19 AM TECHNIQUE: CT of the head was performed withoutcontrast according to standard protocol. FINDINGS: There has been interval postsurgical changes of right hemicraniectomy for management of cerebral edema following right MCA territory infarct. A right-sided subdural drain is in place. There is redemonstration of evolving right middle cerebral artery territory infarct, with associated edema and mass effect with sulcal effacement, effacement of theright lateral ventricle, and [id number] midline shift measuring up to 4 mm and stable from prior(series 5, image 36). A catheter is seen terminating within the region of the right parietal lobe, likely representing an ICP monitor. No evidence of acute intracranial hemorrhage. The ventricular morphology is stable from prior, without evidence of obstructive hydrocephalus. The basilar cisterns are patent. The scott-white matter differentiation otherwise appears normal. The orbits appear normal.The paranasal sinuses are clear. The mastoid air cells are clear. No soft tissue abnormality is identified. IMPRESSION: Interval postsurgical changes of decompressive right hemicraniectomy with ICP monitor and subdural drain in place. 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 > Dictated by Bassam Jovel M.D. (nursing resident) I, Gonzalez Velasco MD have personally reviewed and interpreted this examination/study. > Interpreting Provider: Gonzalez Velasco MD on 10/20/2022 11:06 PM XR ABDOMEN KUB PORTABLE Result Date: 10/20/2022 PROCEDURE: XR ABDOMEN KUB PORTABLE DATE/TIME OF EXAM: 10/20/2022 12:44 PM Indication: I63.511: Rightmiddle cerebral artery stroke (CMS/HCC) Evaluation of NG tube placement COMPARISON: None. FINDINGS/IMPRESSION: An enteric tube is seen coursing into the stomach with its tip and side-port in the gastric body. Report dictated by Royer Stovall MD (resident services coordinator). I, Amanda Prieto MD have personally reviewed and interpreted this examination/study. > Interpreting Provider: Amanda Prieto MD on 10/20/2022 3:[address] HEAD NON CONTRAST Result Date: 10/20/2022 PROCEDURE: CT HEAD WO CONTRAST DATE/TIME OF EXAM: 10/20/2022 8:19 AM CLINICAL INFORMATION: None relevant/not provided if blank. Indication: R44.9: Left-sided sensory deficit present Additional History: Follow-up of acute stroke COMPARISON: Noncontrast brain CT 19 October 2022. TECHNIQUE: Noncontrast CT brain was performed utilizing standard protocol. CT dose reduction technique was used, including Automated Exposure Control. FINDINGS: There is no definite acute intracranial hemorrhage. There is alarge confluent area of decreased attenuation within the right cerebral hemisphere consistent with a large acute infarct in the distribution of the right middle cerebral artery. Mass effect is produced approximately 4 mm of midline shift right to left. There is some mild effacement of the right side of the suprasellar cistern. There is increased attenuation within the region of the right middle cerebral artery likely representing thrombus. There is some effacement of the right lateral and third ventricles due to the mass effect related to the acute infarct. The left lateral and fourth ventricles are within normal limits in size. No definite areas of abnormal attenuation within the left cerebral hemisphere. Bone window images are negative for depressed skull fracture. When comparison is made to the previous study of 19 October 2022 there has been progression of the acute infarct in the right middle cerebral artery distribution which is larger in size and with new mass effect and midlineshift. IMPRESSION: Findings consistent with a large acute area of infarction in the right cerebral hemisphere in the distribution of the right middle cerebral artery with mass effect and approximately 4 mm of midline shift right to left. There is no definite hemorrhagic transformation. There is hyperdensity of the right middle cerebral artery likely representing thrombus. Clinical correlation and continued close interval follow-up are recommended. Results discussed with the stroke team physician, Dr. Stephanie Hester, on 20 October 2022 approximately 1225 hours. > Interpreting Provider: Joni Fabian MD on 10/20/2022 12:[address] ANGIO BRAIN NECK STROKE Result Date: 10/19/2022 PROCEDURE: CT ANGIO BRAIN NECK STROKE, DATE/TIME OF EXAM: 10/19/2022 8:16 AM, LOCATION [facility] INDICATION: Code Stroke ADDITIONAL CLINICAL INFORMATION: Ordering Provider Reason For Exam: Technologist Note: Additional: EXAMINATION: 1. Computed tomographic (CT) angiography of the head with contrast 2. CT angiography of the neck with contrast TECHNIQUE: CT angiography of the headand neck was obtained after the uneventful administration [...] a concurrent noncontrasted head CT for detailed intracranialfindings including findings suggesting an acute right MCA [...] arteries are patent. The basilar artery is patentpatent. 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 IMPRESSION: 1. [...] Lonnie Rae MD on 10/19/2022 8:[address] BRAIN - Stroke Result Date: 10/19/2022 PROCEDURE: CT BRAIN STROKE, DATE/TIME OF EXAM: 10/19/2022 8:04 AM, LOCATION [facility] INDICATION: Code Stroke ADDITIONAL CLINICAL INFORMATION: Ordering [...] of scott-white matter differentiation in the right frontotemporallobes and the right insula, concerning for an acute infarct. There is suggestion of a hyperdense right MCA likely represent acute thrombus (series 5 image 25). No acute intracranial hemorrhage or intra- or extra-axial fluid collections are identified. The ventricles are of normal size, shape, and morphology. The basal cisterns are patent. No mass effect or midline shift is seen. The scott-white mat ter differentiation is normal. The visualized portions of [...] Lonnie Rae MD on 10/19/2022 8:15 AM Right middle cerebral artery stroke (CMS/HCC) (POA: Unknown) Acute cerebrovascular accident (CVA) due to embolism of right middle cerebral artery (CMS/HCC) (POA: Yes) Nihss score 9 (POA: Yes) Received intravenous tissue plasminogen activator (tPA) in emergency department (POA: Yes) GERD (gastroesophageal reflux disease) (POA: Yes) Hemianopsia (POA: Yes) Weakness (POA: Yes) Left-sided sensory deficit present (POA: Yes) Gaze palsy (POA: Yes) Migraine (POA: Unknown) Hypertension (POA: Unknown) Presence of externally removable percutaneous endoscopic gastrostomy (PEG) tube (CMS/HCC) (POA: Unknown) Assessment Consuelo Darby??is a 41 year old??female who??presented on 10/19 with Right MCA syndrome ??s/p TNK. CTA 1 M1 occlusion. S/P mechanical thrombectomy with R M1 recanalization and TICI2b. CT 10/20/22 with edema and mild shift. S/P decompressive right hemicraniectomy. Echo showed a??mobile??aortic valve vegetation.??MRI brain with scattered cortical R hemisphere infarcts with petechiae. Pt febrile and being evaluated. ID following. ?? Stroke Type:??Ischemic Stroke Mechanism:??Cardioembolic Plan TIA/Stroke Workup; active -R M1 ischemic stroke; active - s/p TICI2b revascularization, TNK - s/p decompressive hemicrani on 10/20 for malignant MCA - HbA1C: 6.0, LDL: 91, Cardiac Enzymes; wnl - atorvastatin 80 mg - warfarin bridge (pharmacy managing) ?? Core Measures TNK??administration: yes Anti-thrombotic: holding while on AC Statin:??atorvastatin 80mg DVT prophylaxis:??heparin gtt + warfarin bridge PEG tube ?? Migraine - verapamil 40 TID ?? GENESIS - cont home amitriptyline ?? 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 - Cardiology will repeat SARAH OP setup after completing abx. ?? Fever - Blood cx still negative, - d-dimer high,??US extremities b/l UE shows superficial thrombus in cephalic veins - ID on board. - MRI brain and CT abd pelvis today?? - Continuing cefepime, doxy and vanc - Added flagyl (pharmacy aware to manage warfarin with it) - ID aware - CT abd shows concerns for abscess under peg and hematoma over femoral vessels - Cardiology, IR, vascular surgery, acute care surgery aware - GI consulted: will hold off feeds and start IV fluids ? R illiac and common femoral artery occlusion - s/p R common femoral thrombectomy and patch angioplasty by [facility] surgery - Vascular Sx reconsulted for hematoma - Cardiology also made aware - may plan to reconsider warfarin since hematoma present but will need vasc surg input regarding whether it is hematoma or nec fasciitis ?? HTN - home metop ?? Blood Pressure Goals: SBP <160, map >70 ?? Vit D deficiency - Vit D 2,000 U daily ? Individual Modifiable Risk Factors Hypertension:??no Hyperlipidemia:??no Diabetes:??no Atrial Fibrillation:??no Tobacco:??no ?? Fam,liane updated this morning. Case findings discussed with Dr. Drew, Stroke Attending. Karishma Ojeda MD Neurology Resident * Lyndon Watts RN - 11/10/2022 2:29 AM CDT Problem: Skin Integrity Goal: Skin integrity is maintained or improved Outcome: Progressing Problem: Pain/Discomfort Goal: Patient uses pharmacological and non-pharmacological pain management strategies. Outcome: Progressing Goal: Patient verbalizes acceptable level of pain relief and ability to engage in desired activity. Outcome: Progressing * Jaime Drew MD - 11/09/2022 5:55 PM CDT The above note was reviewed. The patient was seen and examined. I would add the following: I saw and examined the patient with the resident and/or medical student and/or nurse practitioner. I have verified all details of the note and agree with his/her documentation with additions and modifications as listed in my separate note. Please refer to the resident's, medical student's, or nursepractitioner's note for plans of active problems not discussed in this note. 42F p/w M1 occlusion s/p TNK and MT and TICI2b revascularization. TTE showed mobile aortic valve vegetation. Developed MCA syndrome s/p hemicrani. MT c/b R iliac and common femoral a. occlusion s/p thrombectomy. Developed fever- consulted ID, broaden abx, Cxs- fever improving. D dimer was high though possibly inflammatory given improvement of symptoms with abx. US extremities performed and ruled out DVT. CTA chest -ve. - abx per ID - constipation; BM regimen - On warfarin bridge now (INR 1.6). - MRI brain w/wo con - CT chest, abdomen and pelvis with contrast - Urology to remove puentes today MEDICATIONS FOR CURRENT ENCOUNTER: SCHEDULED MEDICATIONS: 0.9% NaCl injection 10-40 mL, Intracatheter, q8h 0.9% NaCl injection 3 mL, Intracatheter, q8h acetaminophen (Tylenol) tablet 650 mg, Enteral Tube, q6h atorvastatin (Lipitor) tablet 80 mg, Enteral Tube, AT BEDTIME cefepime (Maxipime) 2,000 mg in 0.9% NaCl IV 50 mL IVPB, Intravenous, q8h doxycycline monohydrate capsule 100 mg, Enteral Tube, q12h enoxaparin (Lovenox) injection 100 mg, Subcutaneous, q12h guaiFENesin (Robitussin) solution 10 mL, Enteral Tube, q12h iopamidol (Isovue 370) 76 % contrast, Intravenous, Contrast - Once lansoprazole (Prevacid) suspension 30 mg, Enteral Tube, QDAY BEFORE BREAKFAST loratadine (Claritin) tablet 10 mg, Enteral Tube, QDAY metoprolol tartrate IR (Lopressor) tablet 25 mg, Enteral Tube, q12h perflutren lipid microsphere (Definity) injection 0.5 mL, Intravenous, intra- Procedure multiple polyethylene glycol 3350 (Miralax) packet 17 g, Enteral Tube, BID senna-docusate (Senokot-S) tablet 2 tablet, Enteral Tube, QDAY tamsulosin (Flomax) capsule 0.4 mg, Enteral Tube, QDAY vancomycin (Vancocin) 1,500 mg in 500 mL NaCl IVPB Premix, Intravenous, q8h vancomycin (Vancocin) IV dose per pharmacy, Does not apply, DIRECTED verapamil (Isoptin) tablet 40 mg, Enteral Tube, q8h vitamin D3 (Cholecalciferol) 25 MCG (1000 UNITS) tablet 2,000 Units, Enteral Tube, QDAY warfarin (Coumadin) dose per pharmacy, Other, QDay 1700 [COMPLETED] warfarin (Coumadin) tablet 6 mg, Enteral Tube, once warfarin ?? [] iopamidol (Isovue 370) 76 % contrast, Intravenous, Contrast - Once ?? CONTINUOUS MEDICATIONS: PRN MEDICATIONS: 0.9% NaCl injection 10-40 mL, Intravenous, PRN 0.9% NaCl injection 3 mL, Intracatheter, PRN bisacodyl (Dulcolax) suppository 10 mg, Rectal, QDAY PRN diphenhydrAMINE-zinc acetate (Benadryl Extra Strength) 2-0.1 % cream, Topical, PRN ?? oxyCODONE (immediate release) (Roxicodone) tablet 5 mg, Enteral Tube, q6h PRN Patient Vitals for the past 24 hrs: Temp Pulse Resp BP 11/09/22 1333 (!) 101.1 ??F (38.4 ??C) -- -- -- 11/09/22 1202 (!) 101.1 ??F (38.4 ??C) 102 16 126/73 11/09/22 0739 (!) 102.6 ??F (39.2 ??C) 107 -- 124/84 11/09/22 0442 (!) 102.1 ??F (38.9 ??C) 106 -- 134/71 11/08/22 2332 (!) 100.6 ??F (38.1 ??C) 99 -- 122/68 11/08/22 2030 98.6 ??F (37 ??C) 98 18 -- Intake/Output Summary (Last 24 hours) at 11/09/2022 1755 Last data filed at 11/09/2022 1141 Gross per 24 hour Intake 4242 ml Output 750 ml Net 3492 ml Labs: Recent Labs Component Name 10/20/22 0302 06/15/22 0757 CHOL 173 204* TRIG 201* 251* HDL 42 37* LDLCALC 91 117* Recent Labs Component Name 10/20/22 1015 HGBA1C 6.0* Recent Labs Component Name 11/08/22 2346 11/07/22 2234 11/06/22 2312 11/06/22 0136 NA 141 141 140 139 POTASSIUM 3.9 3.6 3.6 3.5 CL 107 108* 108* 111* CO2 24 22 22 21* BUN 9 8 8 8 CREATININE 0.45* 0.53* 0.46* 0.56 CALCIUM 8.5 8.6 8.5 8.3* MAGNESIUM 2.0 2.8* 2.0 2.0 PHOS 3.8 4.3 4.3 3.6 Recent Labs Component Name 11/08/22 2346 11/07/22 2234 11/06/22 2312 11/06/22 0136 WBC 5.2 4.7 4.7 6.5 7.9 HGB 10.4* 9.2* 9.3* 10.0* 9.7* HCT 33.1* 29.5* 29.5* 32.8* 30.2* PLTCOUNT 360 325 195 155 247 RBC 3.59* 3.18* 3.20* 3.42* 3.28* Recent Labs Component Name 11/09/22 0237 11/08/22 0254 11/07/22 0305 11/06/22 2312 11/06/22 1830 11/06/22 0740 PT 18.9* 18.3* 18.4* - - - INR 1.6 1.6 1.6 - - - PTT - - - 63.4* 68.6* 97.1* Recent Labs Component Name 10/30/22 1333 10/30/22 1259 10/21/22 0801 10/20/22 2246 PH 7.40 7.33* 7.40 7.36 PCO2 39 49* 31* 32* PO2 228* 208* 143* 179* FIO2 - - 30.0 40.0 No data found. Micro: Microbiology Results (Displays last 21 days for this encounter ONLY) Procedure Component Value - Date/Time RESPIRATORY PANEL WITH SARS-COV-2 BY PCR ([facility]) [[id number]] (Normal) Collected: 11/05/22 1310 Lab Status: Final result Specimen: Microbiology from Nasopharyngeal Updated: 11/05/22 1732 Adenovirus PCR Not detected Coronavirus 229E PCR Not detected Coronavirus HKU1 PCR Not detected Coronavirus NL63 PCR Not detected Coronavirus OC43 PCR Not detected COVID-19 PCR Not detected Human Metapneumovirus PCR Not detected Human Rhinovirus/Enterovirus PCR Not detected Influenza A PCR Not detected Influenza B PCR Not detected Parainfluenza Virus 1 PCR Not detected Parainfluenza Virus 2 PCR Not detected Parainfluenza Virus 3 PCR Not detected Parainfluenza Virus 4 PCR Not detected Respiratory Syncytial Virus PCR Not detected Bordetella parapertussis PCR Not detected Bordetella pertussis PCR Not detected Chlamydia pneumoniae PCR Not detected Mycoplasma pneumoniae PCR Not detected Narrative: This nucleic amplification assay has received FDA authorization via the [employer]. CULTURE URINE [[id number]] (Normal) Collected: 11/05/22 1307 Lab Status: Final result Specimen: Urine Cath Straight Updated: 11/06/22 1617 Culture Urine No growth (<100 CFU/mL) CULTURE BLOOD [[id number]] (Normal) Collected: 11/05/22 1054 Lab Status: Preliminary result Specimen: Blood Peripheral Updated: 11/07/22 1401 Culture No growth CULTURE URINE [[id number]] (Normal) Collected: 10/27/22 1208 Lab Status: Final result Specimen: Urine Clean Catch Updated: 10/28/22 2236 Culture Urine No growth (<100 CFU/mL) CULTURE BLOOD FUNGUS [[id number]] (Normal) Collected: 10/27/22 1158 Lab Status: Preliminary result Specimen: Blood Peripheral Updated: 11/06/22 0848 Culture No fungus isolated CULTURE BLOOD AFB [[id number]] (Normal) Collected: 10/27/22 1158 Lab Status: Preliminary result Specimen: Blood Peripheral Updated: 11/06/22 1135 Culture No acid-fast bacillus isolated BARTONELLA SPECIES PCR [[id number]] Collected: 10/27/22 1158 Lab Status: Final result Specimen: Blood Updated: 11/01/22 1638 Bartonella Source Plasma Bartonella Species by PCR Not Detected Comment: NOT DETECTED - A negative result does not rule out the presence of PCR inhibitors in the patient specimen or assay specific nucleic acid in concentrations below the level of detection by the assay. INTERPRETIVE INFORMATION: Bartonella Species Detection by PCR This test was developed and its performance characteristics determined by [facility]. It has not been cleared or approved by the [place] Food and Drug Administration. This test was performed in a CLIA certified laboratory and is intended for clinical purposes. Performed By: [facility] [address] [place] [id number] Microfilm Mounter: Boo Bond MD, PhD CLIA Number: [id number] CULTURE BLOOD [[id number]] (Normal) Collected: 10/25/22 0900 Lab Status: Final result Specimen: Blood Peripheral Updated: 10/30/22 1330 Culture No growth day 5 CULTURE BLOOD [[id number]] (Normal) Collected: 10/24/22 1313 Lab Status: Final result Specimen: Blood Peripheral Updated: 10/29/22 1632 Culture No growth day 5 MRSA DNA PCR [[id number]] (Normal) Collected: 10/23/22 1234 Lab Status: Final result Specimen: Microbiology from Nasal Updated: 10/23/22 2044 MRSA DNA by PCR Not detected Narrative: Methicillin-resistant Staphylococcus aureus (MRSA) DNA is not detected (presumed not colonized withMRSA). CULTURE BLOOD [[id number]] (Normal) Collected: 10/23/22 1216 Lab Status: Final result Specimen: Blood Peripheral Updated: 10/28/22 1702 Culture No growth day 5 CULTURE BLOOD [[id number]] (Normal) Collected: 10/23/22 1205 Lab Status: Final result Specimen: Blood Peripheral Updated: 10/28/22 1702 Culture No growth day 5 Length of stay: 21 Problem List Right middle cerebral artery stroke (CMS/HCC) (POA: Unknown) Acute cerebrovascular accident (CVA) due to embolism of right middle cerebral artery (CMS/HCC) (POA: Yes) Nihss score 9 (POA: Yes) Received intravenous tissue plasminogen activator (tPA) in emergency department (POA: Yes) GERD (gastroesophageal reflux disease) (POA: Yes) Hemianopsia (POA: Yes) Weakness (POA: Yes) Left-sided sensory deficit present (POA: Yes) Gaze palsy (POA: Yes) Migraine (POA: Unknown) Hypertension (POA: Unknown) Presence of externally removable percutaneous endoscopic gastrostomy (PEG) tube (CMS/HCC) (POA: Unknown) Present on Admission: ??? Hemianopsia ??? Weakness ??? Left-sided sensory deficit present ??? Gaze palsy ??? Acute cerebrovascular accident (CVA) due to embolism of right middle cerebral artery (CMS/HCC) ??? Nihss score 9 ??? Received intravenous tissue plasminogen activator (tPA) in emergency department ??? GERD (gastroesophageal reflux disease) Routine multidisciplinary rounds were completed today with the presence of the primary team staff, residents, PT/OT/SIGNALING PROJECT ENGINEER and CM/SW. Jaime Drew MD Vascular and Interventional Neurology * Kenya Posadas RN - 11/09/2022 5:37 PM CDT Problem: ELOPEMENT/ABDUCTION Goal: Risk for elopement &/or abduction during hospitalization is minimized Outcome: Progressing Problem: Pain/Discomfort Goal: Patient uses pharmacological and non-pharmacological pain management strategies. Outcome: Progressing Goal: Patient verbalizes acceptable level of pain relief and ability to engage in desired activity. Outcome: Progressing Problem: Mobility Goal: Patient's mobility/activity will be maintained as optimum level for age, diagnosis and physical limitations Outcome: Progressing Goal: Continuum of care needs are further met through referral to outpatient services when appropriate. Outcome: Progressing Goal: Patient reports the ability to perform Activities of Daily Living. Outcome: Progressing Problem: Communication Impairment/Dysarthria Goal: Ability to express needs and understand communication Outcome: Progressing Problem: Nutrition Goal: Nutritional status is improving Outcome: Progressing Problem: Glycemic Control Goal: Clinical indication of glycemia balance is achieved Outcome: Progressing Problem: Knowledge Deficit,Education,Discharge Plan Goal: The patient/family will understand cerebrovascular disease and its symptoms, treatment and management Outcome: Progressing Problem: Oral Intake: Inadequate oral intake Goal: Total intake will meet estimated nutrient needs Outcome: Progressing Problem: Swallowing Goal: LTG - Patient will tolerate the least restrictive diet consistency to allow for safe consumption of daily meals Outcome: Progressing Goal: STG - Patient will participate in instrumental assessment of swallowing as appropriate Outcome: Progressing Goal: STG - Patient will tolerate therapeutic trials of recommended consistency without clincial signs and symptoms of aspiration Outcome: Progressing Goal: STG - Patient will tolerate recommended food and liquid consistencies without clinical signs and symptoms of aspiration Outcome: Progressing Goal: STG - Patient will complete swallowing exercises Outcome: Progressing Goal: STG - Patient/family will complete oral motor exercises for improved bolus control Outcome: Progressing Problem: Transfers Goal: STG - Transfer from bed to chair Outcome: Progressing Problem: Risk for Violence: Self-Directed or Other Directed Description: Diagnosis: Risk for self-directed Violence or Risk for Directed Violence Risk Factors: Biochemical/neurologic imbalances, impulsivity, manic excitement, psychotic symptomatology, rage reaction, restlessness Possibly Evidenced By: agitated behaviors, delusional thinking, hallucinations, loud/threatening/profane speech, poor impulse control, provocative behaviors, verbal threats against others, verbal threats against self Goal: Patient will verbalize control of feelings. Outcome: Progressing Goal: Patient will respond to interventions when potential or actual loss of control occurs. Outcome: Progressing Goal: Patient will refrain from provoking others to physical harm. Outcome: Progressing Goal: Patient will display nonviolent behaviors toward others in the hospital, with the aid of medications and nursing interventions. Outcome: Progressing Goal: Patient will seek help when experiencing aggressive impulses. Outcome: Progressing Goal: Patient will refrain from verbal threats and loud, profrane language toward others. Outcome: Progressing Goal: Patient will be safe and free from injury. Outcome: Progressing Problem: Skin Integrity Goal: Skin integrity is maintained or improved Outcome: Progressing Problem: Neurological Deficit Goal: Neurological status is stable or improving Outcome: Progressing * Karishma Ojeda MD - 11/09/2022 2:21 PM CDT Stroke Service Daily Progress Note Consuelo Darby Age: [age] year old Date of : 1980 Date of Admission: 10/19/2022 Hospital Day: 21 Subjective Consuelo Darby is a 41yo woman hemiplegic migraine,??GERD, GENESIS. who developed acute onset L sided weakness, L-sided sensory deficits, and dysarthria. L sided weakness resolved in route and dysarthriaimproved in route. On arrival patient noted to hae L gaze plasy, L hemainopsia, mild dysarthria, and extinction. NIHSS: 7. S/p TNK and ??TICI2b revascularization of the R MCA M1 occlusion.Repeat CTH showing edema in R MCA territory. On 10/20/22 patient taken for hemicraniectomy, post-op CTH showing stable midline shift. Initial hypercoag work up negative, repeat in 2 months. ?? -10/23- SARAH concerning for aortic cusp vegetations. [...] by GI team while evaluating her for G tube 11/01 CT A/P obtained and no abscess was identified in the abdominal area. Postsurgical changes after vascular surgery. ?? 11/02 GI to take her to OR for G tube. Ready TTF. 11/03 start warfarin bridge 11/04 CT head for headache and eye discomfort after bumping her head on hemicrani site. NSGY aware and evaluated her. CT looks stable. 11/05 had a fever. Infectious workup initiated and ID reconsulted. Plan to broaden spectrum (currently on ceftriaxone + vanc, switch to cefe + vanc + doxycycline ) after blood cultures are taken 11/06: no acute event. On heparin gtt. Warfarin bridge. INR 1.4. ?? Interval History: Patient had no acute events occur overnight. Still febrile. Objective Patient Vitals for the past 24 hrs: BP Temp Temp src Pulse Resp SpO2 11/09/22 1333 -- (!) 101.1 ??F (38.4 ??C) -- -- -- -- 11/09/22 1202 126/73 (!) 101.1 ??F (38.4 ??C) Axillary 102 16 99 % 11/09/22 0739 124/84 (!) 102.6 ??F (39.2 ??C) Rectal 107 -- 95 % 11/09/22 0442 134/71 (!) 102.1 ??F (38.9 ??C) Other 106 -- 100 % 11/08/22 2332 122/68 (!) 100.6 ??F (38.1 ??C) Oral 99 -- 98 % 11/08/222029 -- 98.6 ??F (37 ??C) Axillary 98 18 94 % Intake/Output Summary (Last 24 hours) at 11/09/2022 1422 Last data filed at 11/09/2022 1103 Gross per 24 hour Intake 4142 ml Output 2200 ml Net 1942 ml Exam: Cortical Function Mental Status Awake, alert, follows basic commands Orientation REYNOLD Language No verbal output Visual Powell Intact bilaterally to confrontation Neglect No visual neglect noted, no tactile neglect noted ?? Cranial Nerves II Pupils 3 mm and bilaterally reactive to light. Fundoscopic exam not performed. VIII Hearing is intact bilaterally to voice. III/IV/ Extraocular muscles intact. No diplopia, ptosis, nystagmus or convergence abnormalities noted. IX/X REYNOLD V REYNOLD XI Head turning and shoulder shrug are intact. VII L facial palsy XII Tongue is midline with normal movements and no atrophy noted. ?? Motor Function Movement No abnormalities noted Bulk No abnormalities noted Tone No abnormalities noted ?? Moves RUE and RLE, tries to withdraw to pain in LUE and LLE ?? Sensory Light Touch REYNOLD Noxious Stimuli Symmetric and intact bilaterally ? Labs: Recent Labs Component Name 11/08/22234511/07/22223311/06/22231110/23/22 0129 10/22/22 0153 WBC 5.2 4.7 4.7 - - RBC 3.59* 3.18* 3.20* - - HGB 10.4* 9.2* 9.3* - - HCT 33.1* 29.5* 29.5* - - PLT - - - - 199 - = values in this interval not displayed. Recent Labs Component Name 11/08/22234511/07/22223311/06/222311 NA 141 141 140 CL 107 108* 108* CO2 24 22 22 BUN 9 8 8 CREATININE 0.45* 0.53* 0.46* CALCIUM 8.5 8.6 8.5 No results for input(s): MG in the last 96867 hours. Recent Labs Component Name 11/08/22 23411/07/22223311/06/222311 PHOS 3.8 4.3 4.3 Recent Labs Component Name 11/09/22 0237 11/08/22 0254 11/07/22 0305 11/06/222 11/06/22 1830 11/06/22 0740 PT 18.9* 18.3* 18.4* - - - INR 1.6 1.6 1.6 - - - PTT - - - 63.4* 68.6* 97.1* No results for input(s): A1C in the last 48148 hours. Recent Labs Component Name 10/20/22 0302 06/15/22 0757 CHOL 173 204* HDL 42 37* LDLCALC 91 117* TRIG 201* 251* Recent Labs Component Name 11/06/22 0136 TSH 1.682 No results for input(s): CKMB, CKTOTAL, CKMB, TROPONINI, BNP in the last [address] ANGIO CHEST PULM EMBOLISM Result Date: 11/07/2022 PROCEDURE: CT ANGIO CHEST PULM EMBOLISM, DATE/TIME OF EXAM: 11/07/2022 5:25 PM, LOCATION [facility] INDICATION: R50.9: Fever, unspecified fever cause ADDITIONAL CLINICAL INFORMATION:Ordering Provider Reason For Exam: PE, fever COMPARISON: CT chest abdomen pelvis with contrast dated 10/25/2022. TECHNIQUE: CT of the chest was performed following the uneventful administration of 100mL of Isovue 370 intravenous contrast according to [...] suspicious pulmonary nodules are identified. No pleural fluidor pneumothorax is present. Heart and Pericardium: The cardiac chambers are normal in size. No pericardial fluid or thickening is present. There is no radiographic evidence of right heart strain. Mediastinum and Isabel: No enlarged lymph nodes are present. Bones and Chest Wall: Bone windows demonstrate no suspicious lytic or blastic lesions. The visible osseous structures are intact. Upper Abdomen:The visible portions of the upper abdominal organs are normal. Impression: 1.No evidence of acute pulmonary embolism. There is no radiographic evidence of right heart strain. 2.No other acute process within the chest. > Dictated by Tim Major MD (resident services coordinator). IAlexx have personally reviewed and interpreted this examination/study. > Interpreting Provider: Alexx Lopez on 11/07/2022 10:30 PM ECHO COMPLETE Result Date: 11/07/2022 ??? Left??Ventricle: Left ventricle size is normal. EDV Index BP is 55.3 mL/m2. ESV Index BP is 18.3 mL/m2. Normal wall thickness. LVPWd is 1.01 cm. Ventricular mass is normal. Mass index 2D is 61.25g/m2. Normal systolic function with a visually estimated EF of 65 - 70%. EF by 2D Abarca biplane is 67%. Normal wall motion. Normal diastolic function. Normal mean left atrial pressure. Tissue Doppler velocity is reduced. MV peak E velocity is 102.695 cm/s. MV e' lateral velocity is 14.141 cm/s. MV e' septal velocity is 10.702 cm/s. ??? Right ventricle size is normal. Normal free wall thickness.RV wall thickness is 0.5 cm. Normal wall [...] mmHg). IVC is normal in size. SVC wasnot assessed. ??? Estimated sPAP is 23.0 mmHg. Estimated RVSP is 23.0 mmHg. RAP is 3.0 mmHg. Mean PA pressure of 15 mmHg. PVR < 1.5 Wood units. ? ? Normal valve morphology nd function. ? ? No pericardial effusion. ??? Normal sized annulus, sinus of Valsalva (aortic root), ascending aorta, aorticarch, descending aorta and abdominal aorta. Normal echocardiogram by 2D, m-mode, color and spectralDoppler echocardiography. IR INTRACRANIAL [facility] THROMBECT Result Date: 11/07/2022 PROCEDURE: IR INTRACRANIAL [facility] THROMBECT DATE/TIME OF EXAM: 10/19/2022 10:41 AM Procedure: CerebralAngiogram and Mechanical Thrombectomy for Acute Stroke Comparison Study: History: 41 year oldwith GERD, tobacco, p/w left sided neglect both sensory and visual, LWK 6:30, s/p TNK. CTA 1 M1 occlusion.Will take to IR for a mechanical thrombectomy. Notification Time: 8:21 NIHSS Score: 6 ASPECTS: 9 In-room: 8:48 Puncture Time: 8:53 Location of Clot: R M1 MCA Initial TICI: 0 Time to Clot: 9:37 Time to Reperfusion: 9:54 Final TICI: 2b Pit Slagman: Dr. Mitali Walter Meteorologist In Charge(s): Isak Monte Vessels: Ultrasound Guided Access of Femoral Artery Ultrasound Guided Access of Radial Artery Arterial line placement in the right radial artery Right Common Carotid Artery Angiogram: Cerebral Intracranial Catheterization Mechanical Thrombectomy with Retrievable Stent and Reperfusion Catheter Angiography Through the Existing Catheter Right Femoral Artery Angiogram Anesthesia: General Anesthesia was performed and monitored by an attending Anesthesiologist and their technical services assistant throughout the entirety of the case Procedural Detail: The risks, benefits, and alternatives to procedure were discussed in detail with the patient and her family. These included but were not limited to the risk of blood loss, vessel injury, stroke, renal injury, and contrast allergy. The patient was brought to the biplane a ngiography suite where she underwent prep and drape procedures. Limited ultrasound of the right radial artery demonstrated a patent vessel. A 5 new zealander sheath was placed in the radial artery and was used as an arterial line. Limited ultrasound of the common femoral artery demonstrated a patent vessel. The take off of the profunda and other arteries were identified. A scott scale image was documented. The right common femoral artery was accessed using a micropuncture needle. The needle entry was documented. Following a series of exchanges, a 8 Russian sheath sheath was placed in the right femoralartery. A Guide and a 6 Russian Penumbra Select Serrano 2 catheter along with a stiff 0.035 Glidwirewas navigated into the aortic arch. The catheter was used to select brachiocephalic artery followedby the right common carotid artery and finally [...] then removed from the arterial system. After 5min were allowed to elapse for maximal [...] system. Hemostasis was achieved using a 8 Russian Angio-Seal closure device. Hemostasis was immediate at [...] revascularization on the MCA territory was visualized. Impression: 1. TICI2b revascularization of the R MCA M1 occlusion. Location of Clot: Right M1 segment Initial TICI: 0 Final TICI: 2b I, Dr. Jim Walter, was present and performed/supervised theentire procedure. Jim Ornelas MD have personally reviewed and interpreted this examination/study. > Interpreting Provider: Jim Walter MD on 11/07/2022 9:21 AM XR ABDOMEN KUB PORTABLE Result Date: 11/06/2022 PROCEDURE: XR ABDOMEN KUB PORTABLE, DATE/TIME OF EXAM: 11/05/2022 5:28 PM, LOCATION [facility] INDICATION: R50.9: Fever, unspecified fever cause ADDITIONAL CLINICAL INFORMATION: Ordering Provider Reason For Exam: constipation Technologist Note: Additional: COMPARISON: 10/28/2022 KUBFINDINGS: PEG tube overlying left upper quadrant. Interval removal of enteric tube. There is no dilatation of small or large bowel. No pneumoperitoneum or pathological calcification is seen. The visible osseous structures are intact. The lung bases are clear. IMPRESSION: Non-obstructive bowel gas pattern. Report dictated by Mc Castro MD, (resident services coordinator). Pepe Ornelas MD have personally reviewed and interpreted this examination/study. > Interpreting Provider: Pepe Gonzalez MD on 11/06/2022 10:[address] HEAD WO CONTRAST Result Date: 11/05/2022 PROCEDURE: CT HEAD WO CONTRAST DATE/TIME OF EXAM: 11/05/2022 12:11 AM CLINICAL INFORMATION: None relevant/not provided if blank. 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 CT dose reduction technique was used, including Automated Exposure Control. FINDINGS: Redemonstration of postsurgical changes from decompressive right frontal parietotemporal craniectomy. Unchanged herniation of the right frontoparietal and temporal lobes through the craniectomydefect. Unchanged evolving large right MCA territory infarction involving the right frontal parietal and temporal lobes. 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 No significant midline shift. Unchanged ex vacuo dilation of the right lateral ventricle. There is interval increase in cortical hyperdensity involving the right parietal, frontal lobes (image 11, 12, 14, series 3). Extra-axial fluid collection overlying the herniated right cerebral convexity measuring 1.5 cm in thickness, not significantly changed compared to prior study. No interval change in the scott- white matter differentiation. No significant opacification of the mastoid or paranasal sinuses. No acute soft tissue findings or calvarial findings. IMPRESSION: 1. Redemonstration of post surgical changes from decompressive hemicraniectomy and evolving large right MCA territory subacute infarct. Interval increased linear hyperdense foci along thecortex of right frontal and parietal lobes could be secondary to evolving cortical laminar necrosisversus developing petechial hemorrhages. Continued attention recommended on short-term follow-up. However no hematoma noted. No evidence of midline shift. These findings were discussed with patient'scare provider, Dr. Roth with neurology, by on 11/05/2022 5:46 PM with read back verification. > Interpreting Provider: Oriana Suarez MD on 11/05/2022 5:48 PM XR CHEST 1VW PORTABLE Result Date: 11/05/2022 PROCEDURE: XR CHEST 1VW PORTABLE, DATE/TIME OF EXAM: 11/05/2022 9:38 AM, LOCATION [facility] INDICATION: R50.9: Fever, unspecified fever cause ADDITIONAL CLINICAL INFORMATION: Ordering Provider Reason For Exam: consolidation COMPARISON: Chest radiograph 10/29/2022. FINDINGS/IMPRESSION: Previously seen feeding tube has been removed. These no confluent consolidation, pleural effusion, or pneumothorax is noted. The cardiomediastinal silhouette is stable. No acute osseous abnormality is noted. Report dictated by Christopher Tobin MD, MD (resident services coordinator). HEATHER Ornelas MD have personally reviewed and interpreted this examination/study. > Interpreting Provider: HEATHER FREGOSO MD on 11/05/2022 2:[address] ABDOMEN WO CONTRAST Result Date: 11/02/2022 PROCEDURE: CT ABDOMEN WO CONTRAST, DATE/TIME OF EXAM: 2022 6:47 PM, LOCATION [facility] INDICATION: Z93.1: Presence of externally removable percutaneous endoscopic gastrostomy (PEG) tube (CMS/HCC) ADDITIONAL CLINICAL INFORMATION: Ordering Provider Reason For Exam: diffcult percutaneous PEG tube placement, rule out complications COMPARISON: CT abdomen pelvis with contrast dated 10/31/2022 TECHNIQUE: CT of the chest, abdomen, and pelvis was performed without contrast according to standard protocol. Findings: Evaluation of visceral and vascular structures is degraded due tolack of intravenous contrast administration. Lines/tubes: *Interval placement of a percutaneous trudi rostomy tube with intraluminal placement of tip and [...] Bone windows demonstrate no suspicious lytic or blasticlesions. The visible osseous structures are intact. Soft tissues: Normal. Impression: Interval placement of a percutaneous gastrostomy tube with intraluminal placement of tip and inflated balloon within the body/antrum of the stomach without complication, as clinically queried.. > Dictated by Tim Major MD (resident services coordinator). Pepe Ornelas MD have personallyreviewed and interpreted this examination/study. > Interpreting Provider: Pepe Gonzalez MD on 11/02/2022 1:[address] ABDOMEN PELVIS W CONTRAST Result Date: 10/31/2022 PROCEDURE: CT ABDOMEN PELVIS W CONTRAST, DATE/TIME OF EXAM: 10/31/2022 10:16 AM, LOCATION [facility] INDICATION: I33.0: Aortic valve vegetation ADDITIONAL CLINICAL INFORMATION: Ordering Provider Reason For Exam: abscess? Technologist Note: Additional: COMPARISON: CT chest abdomen and pelvis 10/25/2022. TECHNIQUE: CT of the abdomen and pelvis was performed following the uneventful administration of 100 mL of Isovue 370 intravenous contrast according to standard protocol. Findings: Lower Chest: Bibasilar subsegmental atelectasis present. Liver: Normal. Gallbladder and Bile Ducts: The gallbladder is absent. Spleen: Normal. Pancreas: Normal. Adrenals: Normal. Kidneys: Normal. Bladder: A Puentes catheter terminates within a decompressed urinary bladder. Gastrointestinal: Enteric tube terminates in the stomach. Duodenal diverticulum present. The stomach and visualized loops of large and small bowel are otherwise unremarkable. Normal appendix. Mesentery/Peritoneum/Retroperitoneum: Normal. Reproductive Organs: The uterus is normal. Vasculature: There is been interval postsurgical changes to the right common femoral/external iliac artery region with previously seen thrombus in this region no longer visualized. There is however irregularity of the distal right external iliacand proximal right common femoral artery and mild narrowing in this region likely resenting postsurgical changes. Questionable flap in the proximal common femoral artery (series 3 image 153). Bones: Bone windows demonstrate no suspicious lytic or blastic lesions. The visible osseous structures are intact. Soft tissues: There is extensive soft tissue stranding edema and fluid throughout the right groin with multiple foci of subcutaneous gas along likely represent post surgical changes. Although there is focal fluid was prominent at series 3, image 153 in this region no rim- enhancing drainable fluid collections are appreciated at this time. Impression: 1.Interval postsurgical changes to the distal right external iliac/proximal right common femoral arteries with previously seen thrombus in this region no longer visualized. There is however irregularity of the artery in this region with mild narrowing which is favored to represent postsurgical changes. Questionable flap within the proximal common femoral artery as detailed above. 2.Extensive soft tissue stranding, edema and fluid along with subcutaneous gas in the right groin likelyrepresenting postsurgical changes. Although there is focal fluid in this region, no rim-enhancing drainable fluid collections are appreciated at this time. > Interpreting Provider: Alexx Lopez on 10/31/2022 11:[address] HEAD WO CONTRAST Result Date: 10/31/2022 EXAM: CT HEAD WO CONTRAST, DATE/TIME OF EXAM: 10/30/2022 8:22 PM, LOCATION: [facility] HISTORY: I63.511: Right middle cerebral artery stroke (CMS/HCC) ADDITIONAL CLINICAL INFORMATION: Ordering Provider Reason For Exam: Heparin supratherapeutic bleed follow up. EXAMINATION: CT scan of the head without intravenous contrast TECHNIQUE: CT of the head was performed without intravenouscontrast according to standard protocol. CT dose reduction technique was used, including Automated Exposure Control. COMPARISON: Head CT 10/28/2022. Brain MRI 10/24/2022. FINDINGS: See impression. IMPRESSION: Compared to prior head CT 10/28/2022: 1.Re-demonstrated postsurgical changes of decompressive right frontoparietotemporal craniectomy with multiple overlying scalp carla. Evolving heterogeneous subdural hematoma along the right frontotemporal convexity measuring up to 8 mm in maximal thickness (5/32), previously measuring up to 9 mm in thickness. 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 Increased conspicuity of a thin hyperdensity along the cortex within this region suggestive of evolving cortical laminar necrosis. 3.Re-demonstrated small hypodensity of the left inferior frontal gyrus/frontal operculum, consistent with an evolving uqxjwxug-te-upcesgu infarct. 4.No significant midline shift. Similar-appearing size and configuration of the ventricles without evidence of hydrocephalus. Basal cisterns are patent. 5.No other convincing change. Partially imaged left nasoenteric tube. > Interpreting Provider: Amanda Real MD, PhD on 10/31/2022 1:26 AM [facility] ANGIO TEAM Result Date: 10/30/2022 Fluoroscopy was used for this exam in the OR. Please see the Operative report. XR CHEST 1VW PORTABLE Result Date: 10/29/2022 PROCEDURE: XR CHEST 1VW PORTABLE, DATE/TIME OF EXAM: 10/29/2022 10:29 AM, LOCATION [facility] INDICATION: R09.02: Hypoxia ADDITIONAL CLINICAL INFORMATION: Ordering Provider Reason For Exam: evaluate for hypoxia COMPARISON: Chest x-ray from 10/27/2022 FINDINGS/IMPRESSION: Enteric tube is seen coursing over the diaphragm without visualization of the distal tip. There is no focal consolidation, pleural effusion, or pneumothorax. The cardiomediastinal silhouette is normal. Report dictated by Jacques Russell DO (resident services coordinator). Jacques Ornelas DO have personally reviewed and interpreted this examination/study. 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 Report dictated by Jacques Russell DO (resident services coordinator). Jacques Ornelas DO have personally reviewed and interpreted this examination/study. 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 FINDINGS/IMPRESSION: Enteric tube courses below the diaphragm with the distal tip superimposing the antropyloric region. Report dictated by Martell Shetty MD (resident services coordinator). Jacques Ornelas DO have personally reviewed and interpreted this examination/study. > Interpreting Provider: Jacques Cole DO on 10/28/2022 12:[address] HEAD WO CONTRAST Result Date: 10/28/2022 PROCEDURE: CT HEAD WO CONTRAST, DATE/TIME OF EXAM: 10/28/2022 5:28 AM, LOCATION [facility] INDICATION: Z91.89: At high risk for bleeding after thrombolytic therapy monitor for hemorrhagic bleed given heparin use in massive stroke EXAMINATION: Computed tomography (CT) of the head without contrast TECHNIQUE: CT of the head was performed without contrast according to standard protocol. CT dose reduction technique was used, including Automated Exposure Control. COMPARISON: CT head without contrast dated 10/27/2022 FINDINGS: Redemonstrated are postoperative changes of decompressiveright frontoparietotemporal craniectomy, with multiple overlying scalp carla. Redemonstrated slightly heterogeneous subdural hemorrhage along the right frontotemporal convexity measuring 9 mm in the maximal thickness (series 3 image 17), without significant change compared to prior study. Redemonstrated evolving right MCA infarct. There is moderate mass effect on the right lateral ventricle. There is again associated mild external herniation through the craniectomy site. Unchanged gyriform hyperdensity within the infarcted area which may represent laminar necrosis. Small volume of subarachnoid hemorrhage cannot be completely ruled out. No new acute intracranial hemorrhage. The ventricles are mildly dilated compared to 10/19/2022, otherwise unchanged compared to 10/27/2022. The basal cisterns are patent. No midline shift is seen. Unchanged small focus of hypoattenuation in the left frontal lobe (series 3 image 20) likely represents a small subacute infarct. Partially visualized nasogastric tube. The visualized portions of the orbits, paranasal sinuses, and mastoids appear normal. No acute calvarial fracture is identified. IMPRESSION: 1. Evolving right MCA subacute infarct status post decompressive craniectomy. Grossly unchanged right frontotemporal subdural hemorrhage. Grossly unchanged gyriform hyperdensity in the infarcted area may represent subarachnoid hemorrhage. No midline shift. Unchanged mildly dilated ventricles may represent mild hydrocephalus. 2. Unchanged small focus of hypoattenuation in the left frontal lobe likely represents additional subacute infarct. The report is dictated by Kayla Stevenson MD (resident services coordinator) 1 I, Lonnie Rae MD have personally reviewed and interpreted this examination/study. > Interpreting Provider: Lonnie Rae MD on 10/28/2022 9:15 AM XR CHEST 1VW PORTABLE Result Date: 10/27/2022 PROCEDURE: XR CHEST 1VW PORTABLE, DATE/TIME OF EXAM: 10/27/2022 10:19 AM, LOCATION [facility] INDICATION: D72.829: Leukocytosis, unspecified type ADDITIONAL CLINICAL INFORMATION: Ordering Provider Reason For Exam: any concern for pneumonia COMPARISON: Chest radiograph dated 10/25/2022. FINDINGS/IMPRESSION: Enteric tube courses below the diaphragm and out of the [id number]. RUQ surgical clips are present. No focal consolidation. No pleural effusion or pneumothorax. The cardiomediastinal silhouette is normal. Report dictated by Agnes Olmos DO (resident services coordinator). I, Pepe Gonzalez MD have personally reviewed and interpreted this examination/study. 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 COMPARISON: 10/26/2022. FINDINGS: Redemonstration of postoperative anisha nges of decompressive right cranioplasty. An evolving extra-axial hematoma is again noted in the craniotomy site. Small volume subarachnoid hemorrhage is is again seen in the right cerebral sulci. Again noted is herniation of the intracranial contents through the craniectomy defect. Again demonstrated is an evolving subacute infarct in the nearly entire right MCA distribution, grossly unchanged. There is persistent mass effect on the lateral ventricle. A small hypoattenuating focus is again noted in the left frontal lobe, which may represent a small subacute infarct. The ventricles are stable. The basal cisterns are patent. No midline shift. The scott-white matter differentiation is normal. The visualized portions of the orbits, paranasal sinuses, and mastoids appear normal. No acute calvarial fracture is identified. IMPRESSION: 1. Redemonstration of evolving right MCA subacute infarct, status post right decompressive craniectomy. The extra-axial hematoma underlying the craniectomy site and subarachnoid hemorrhage in the right cerebral sulci are grossly unchanged. Mass effect on the right lateral ventricle is unchanged. No significant midline shift. 2. Small focus of likely a subacute infarct in the left frontal lobe is unchanged. > Interpreting Provider: Lonnie Rae MD on 10/27/2022 12:10 PM XR CHEST 1VW PORTABLE Result Date: 10/26/2022 PROCEDURE: XR CHEST 1VW PORTABLE, DATE/TIME OF EXAM: 10/25/2022 9:41 AM, LOCATION [facility] INDICATION: I63.511: Right middle cerebral artery stroke (CMS/HCC) ADDITIONAL CLINICAL INFORMATION: Ordering Provider Reason For Exam: Atlectasis/mucus plugging Comparison: Chest x-ray from10/23/2022, and CT chest, abdomen, pelvis from same day FINDINGS/IMPRESSION: Interval removal of theendotracheal tube. Enteric tube courses below the diaphragm and out of the [id number]. There is severe left rotation of the patient in this study. There is no focal consolidation, pleural effusion, or pneumothorax. The left upper lobe pulmonary nodule noted on chest CT from same day is not visualized on this plain film. The cardiomediastinal silhouette is normal. The visible bony thorax is intact. Report dictated by Royer Stovall MD (resident services coordinator). I, Alexx Lopez have personally reviewed and interpreted this examination/study. 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 COMPARISON: Comparison ismade with a CT head dated 10/25/2022. FINDINGS: Redemonstration of postoperative changes of right decompressive hemicraniectomy. Redemonstration of large volume confluent acute infarct in the right MCA territory involving the right frontal parietal temporal and insular regions and basal ganglia. Redemonstration of mild herniation of the right frontoparietal and temporal regions through the craniectomy defect. Redemonstration of a curvilinear extra-axial/extracranial fluid collection overlying the right cerebral convexity containing debris and blood products, measuring about 7 mm in thickness not significantly changed compared to prior study. Redemonstration of linear foci of hyperdensity along the evolving infarct most likely secondary to prominent vasculature. No new hyperdense foci within the evolving infarct. No evidence of transtentorial or tonsillar herniation. Station a mass effectfrom the large evolving right MCA territory infarct with effacement of sulci, and effacement of theright lateral ventricle. There is a large area of recent infarction seen in the right hemisphere inthe MCA territory with associated mass effect and some effacement of the right lateral ventricle grossly unchanged from prior. There are foci of hypoattenuation consistent with small evolving subacute to acute infarcts within the left frontal lobe periventricular white matter and left martínez radiata extending up to the left frontal subcortical regions also unchanged compared to prior study. No new intracranial hemorrhage or intra- or extra-axial fluid collections are identified. The left lateral ventricle, third and fourth ventricles are of normal size, shape, and morphology. The basal cisterns are patent. Leftward midline shift is approximately 2 mm as measured at the foramen of Monro, unchanged from yesterday. The visualized portions of the orbits, paranasal sinuses, and mastoids appearnormal. No acute calvarial fracture is identified. Partially visualized nasal tube IMPRESSION: 1. Redemonstration of evolving large right MCA territory acute to subacute infarct without definite evidence of hemorrhagic transformation. Unchanged minimal leftward midline shift of about 2 mm at the level of foramen of Monro and effacement of the left lateral ventricle. 2. Redemonstration of postsurgical changes from right-sided decompressive hemicraniectomy, unchanged compared to prior study. These results were discussed with stroke resident Dr Mendez by Dr. Miranda Bowen at8:05 AM on 10/26/2022 with read back confirmation and closed-loop communication. The report is dictated by Miranda Bowen MD (resident services coordinator) I, Oriana Suarez MD have personally reviewed and interpreted this examination/study. > Interpreting Provider: Oriana Suarez MD on 38:[address] CHEST ABDOMEN PELVIS W CONT Result Date: 10/25/2022 PROCEDURE: CT CHEST ABDOMEN PELVIS W CONT, DATE/TIME OF EXAM: 10/25/2022 12:56 PM, LOCATION [facility] INDICATION: I63.511: Right middle cerebral artery stroke [...] Neck and Axillae: Normal. Lungs: Subsegmental atelectasis ofthe posterior lungs. No pleural fluid or pneumothorax is present. There is a 3 mm nodule in the left upper lobe (image 47 series 5). Heart and Pericardium: The cardiac chambers are normal in size. Nopericardial fluid or thickening is present. Mediastinum and [...] groin. Subcutaneous gas in the lower left anteriorabdominal wall related to subcutaneous injections. Impression: 1.Occlusion [...] verification. > Dictated by Clarisa Cantrell MD (resident services coordinator). I, Alexx Lopez have personally reviewed and interpreted this examination/study. 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 COMPARISON: Comparison is made with brain MR [address] head dated 10/23/2022 FINDINGS: There are postoperative ch anges of right hemicraniectomy. There is soft tissue thickening and skin carla overlying the operative defect. There is curvilinear fluid collection collection overlying the right cerebral convexity within the craniectomy defect containing some recent blood products and which measures approximately 22 mm in maximum thickness. There is a large area of recent infarction in the right cerebral hemisphere in the distribution in the distribution of the right middle cerebral artery. Mass effect is produced by this. There is a small amount of midline shift right to left of roughly 2 mm at the levelof the foramen of Monro. There is some compression of the right lateral ventricle. The left lateral ventricle, third, and fourth ventricles are normal in size. There are foci of decreased attenuationconsistent with small recent infarcts within the left frontal lobe and left martínez radiata. Bone window images demonstrate no signal suspicious lytic or blastic lesions. When today's study is compared to the parenchyma of 24 October [address] 23 October, there may be slightly less mass effectand midline shift on today's study and the fluid collection within the craniectomy defect overlyingthe lateral right cerebral hemisphere is slightly smaller. There has been interval removal of the drainage tube that was present within the craniectomy defect on previous brain CT and there is less ai r/gas within the operative defect relative to the previous brain CT. IMPRESSION: Redemonstrated postoperative changes consistent with right calvarial hemicraniectomy. Fluid collection overlying the lateral right cerebral hemisphere within the craniectomy defect containing some recent blood products. The overall size of this fluid collection is less than on previous study. In addition, there is less air/gas within this defect. Evolving large recent right cerebral hemisphere infarct with mass effect and approximately 2 mm of midline shift right to left. There appears to be slightly less mass effect and midline shift on today's study. Continued follow-up is recommended. Small recent cortical infarct in the lateral left frontal lobe as well as small recent infarc t in left martínez radiata which appears similar to previous study. Clinical correlation recommended.The report is dictated by Miranda Bowen MD (resident services coordinator) I, Joni Fabian MD have personally reviewed and interpreted this examination/study. > Interpreting Provider: Joni Fabian MD on 10/25/2022 2:[address] CARDIAC ANGIO STRUCT MORPH Result Date: 10/25/2022 PROCEDURE: CT CARDIAC ANGIO STRUCT MORPH, DATE/TIME OF EXAM: 10/23/2022 3:08 PM, LOCATION [facility] INDICATION: I63.411: Acute cerebrovascular accident (CVA) due to embolism of right middle cerebral artery (CMS/HCC) ADDITIONAL CLINICAL INFORMATION: Ordering Provider Reason For Exam: L atrial valve vegetations Technologist Note: Additional: COMPARISON: None. Procedure: CT structure and morphology with intravenous contrast material, including 3D image post-processing Acquisitionmode: Retrospective ECG gated. Contrast type and volume:Isovue .100 mL. Complications: None.. Imagequality: Good signal noise. There is motion artifact Heart rate: 99 bpm. Coronaries: The coronary arteries are not completely visualized due to motion artifact given the increase heart rate. Within the limitations, coronary arteries are normal in course and morphology and patent without calcification or plaque. Other cardiac findings: Left Atrium: The left atrium is normal size with no left atrial appendage filling defects. Left Ventricle: The ventricular cavity [...] the available limited view of the abdomen. Impression: 1. 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 2. Patent coronary vessels within the limitation of the motion artifact given the elevated heart during this exam > Interpreting Provider: Pepe Gonzalez MD on 10/25/2022 12:03 AM XR ABDOMEN KUB PORTABLE Result Date: 10/24/2022 PROCEDURE: XR ABDOMEN KUB PORTABLE, DATE/TIME OF EXAM: 10/24/2022 2:04 PM, LOCATION [facility] INDICATION: R47.1: Dysarthria ADDITIONAL CLINICAL INFORMATION: Ordering Provider ReasonFor Exam: ngt placement COMPARISON: Portable KUB dated 10/23/2022 FINDINGS/IMPRESSION: The enteric tube courses below the diaphragm with tip superimposing the gastric pyloric region. Drafted by Agnes Olmos DO (resident services coordinator). I, Vanessa Kumar MD have personally reviewed and interpreted this examination/study. > Interpreting Provider: Vanessa Kumar MD on 10/24/2022 2:17 PM MRI BRAIN WWO CONTRAST Result Date: 10/24/2022 PROCEDURE: MRI BRAIN WWO CONTRAST, DATE/TIME OF EXAM: 10/24/2022 10:56 AM, LOCATION [facility] INDICATION: I63.411: Acute cerebrovascular accident (CVA) due to embolism of right middle cerebral artery (CMS/HCC) ADDITIONAL CLINICAL INFORMATION: Ordering Provider Reason For Exam: Stroke workup Technologist Note: Does the patient have a defibrillator, pacemaker, aneurysm clips or implanted mechanical devices?->No Does the patient have metal implants or stents?->No Additional: None. EXAMINATION: Magnetic resonance imaging (MRI) of the brain without and with contrast CONTRAST: GADOBUTROL 1 MMOL/ML IV SSM SO:9.5 mL TECHNIQUE: MRI of the brain was performed prior to and following the uneventful administration of 9.5 mL intravenous GADAVIST contrast according to standard protocol. COMPARISON: CT of the head from 10/23/2022. FINDINGS: Redemonstration of postoperative changes of decompressive right hemicraniectomy with expected interval evolution of the previously seen post surgical changes along the craniectomy site. Redemonstration of extra-axial collection along the craniectomy site containing extra-axial blood products and fluid, measuring approximately 2.4 cm in thickness, (series 9, image 13), previously measured approximately 2.5 cm, grossly unchanged from prior. Interval resolution/redistribution of the previously seen foci of pneumocephalus compared to the prior CT. Interval removal of the previously seen right intracranial pressure monitor. Redemonstration of extensive cytotoxic edema in the right frontotemporoparietal regions, the right insula, and the right basal ganglia, extending along the martínez radiata and the marginally along the lateral aspect of the right centrum semiovale compatible with evolving acute right MCA territory infarction. There is persistent local mass effect on the right cerebral hemisphere with effacement of the overlayingsulci, mild external herniation of the infarcted brain through the craniectomy defect, effacement of the right lateral ventricle, and approximately 3-4 mm [id number]-[id number] midline shift at the level of the foramen of Monro, (series 13, image 18),, previously measured approximately 3 mm, (series 6, image 35), when remeasured, grossly similar to the prior. Extensive susceptibility artifacts along the craniectomy site compatible with expected postsurgical changes. There are additional scattered foci of restricted diffusion in the left frontoparietal region, extending along the subcortical white matter of the lateral left frontal lobe, the right martínez radiata, and the centrum semiovale, compatible with a small evolving acute to subacute infarcts. Otherwise, no new intracranial hemorrhage is identified. The ventricular caliber appears grossly stable compared to the prior. For reference, the diameter of the left ventricular trigone measures approximately 1.2 cm, (series 4, image 33), previously measured approximately 1.3 cm, (series 4, image 19). The basal cisterns are mildly effaced. The re maining ventricles are of normal size, shape, and morphology. Diffuse leptomeningeal enhancement along the right frontotemporoparietal infarcted area compatible with expected reactive changes. No enhancing lesions are otherwise identified. The corpus callosum and sella appear normal. The posterior fossa, brainstem, and craniocervical junction appear grossly stable. The visualized portions of the orbits appear grossly unremarkable. There is mild paranasal sinus disease. There is suspected minimal opacification in the right mastoid air cells. The remaining mastoid air cells appear grossly clear. Normal flow voids are demonstrated in the carotid arteries and basilar artery. The calvarium and visualized cervical spine otherwise appear normal. IMPRESSION: 1.Redemonstration of postoperative changes of a right hemicraniectomy with expected postsurgical changes as outlined above. 2.Redemonstration of evolving large right MCA territory infarction with extensive cytotoxic edema and mild external herniation of the brain through the craniectomydefect. Persistent local mass effect on the right cerebral hemisphere, effacement of the right lateral ventricle, and approximately 3-4 mm oyevw-ub-[id number] midline shift, grossly similar to the prior. 3.Mild dilation of the left lateral ventricle may represent subtle left ventricular entrapment, overall grossly similar to prior. 4.Additional multiple foci of abnormal diffusion within the left frontotemporal lobes with associated T2 FLAIR hyperintensity representing additional small acute to subacute infarcts, likely of cardioembolic etiology. Findings communicated to Dr. Mohr by Dr. Major at 1138 hours on 10/24/2022 with readback comprehension and verification. Report dictated by Tim Major MD (resident services coordinator). IJasper MD have personally reviewed and interpreted this examination/study. 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 Endotracheal tube terminates in the midthoracic trachea. There is no focal consolidation. No pleural effusion or pneumothorax. The cardiomediastinal silhouette is normal. No acute osseous abnormality. Report dictated by Agnes Olmos DO (resident services coordinator). Vanessa Ornelas MD have personally reviewed and interpreted this examination/study. > Interpreting Provider: Vanessa Kumar MD on 10/24/2022 1:03 PM ECHO SARAH Result Date: 10/24/2022 ??? Aortic??Valve: Valve structure is normal. There is a 6 x 7 mm independently mobile mass on the left coronary cusp. Differential includes vegetation (non- bacterial thrombotic endocarditis, infective endocarditis) vs less likely fibroelastoma. ??? Left??Atrium: No right to left intracardiac or extracardiac shunt present viewable with agitated saline, color Doppler and Valsalva maneuver. Normal sized appendage. Normal appendage flow velocity. No thrombus present in the left atrial appendage (MADELEINE). ??? Left??Ventricle: Left ventricle size is normal. Hyperdynamic systolic function with a visually estimated EF of 75 - 80%. ??? No hemodynamically significant valvular abnormality. XR ABDOMEN KUB PORTABLE Result Date: 10/24/2022 PROCEDURE: XR ABDOMEN KUB PORTABLE, DATE/TIME OF EXAM: 10/23/2022 1:53 PM, LOCATION [facility] INDICATION: R47.1: Dysarthria ADDITIONAL CLINICAL INFORMATION: Ordering Provider ReasonFor Exam: NGT placement COMPARISON: Portable KUB dated 10/20/2022 FINDINGS/IMPRESSION: The enteric tube courses below the diaphragm with tip superimposing the stomach. Drafted by Agnes Olmos DO (resident services coordinator). Vanessa Ornelas MD have personally reviewed and interpreted this examination/study. 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 EXAMINATION: Computed tomography (CT) of the head without contrast TECHNIQUE: CT of the head was performed without contrast according to standard protocol. CT dose reduction technique was used, including Automated Exposure Control. COMPARISON: Comparison is made with a CT head dated 10/22/2022. FINDINGS: Redemonstration of postoperative changes consistent of a right hemicraniectomy with underlying extra-axial blood products along the lateral cerebral convexity and small foci of pneumocephalus, slightly decreased or redistributed compared to prior. Unchanged appearance of a right intracranial pressure monitor. Extensive cytotoxic edema and mass effect in the right MCA territory with associated diffusesulci effacement and right lateral ventricle effacement grossly unchanged from prior. There is a right to left midline shift measuring up to 2 mm, stable to mildly improved from prior. No new intracranial hemorrhage or intra- or extra-axial fluid collections are identified. The ventricular morphology is stable compared to prior exams. The basal cisterns are mildly effaced. The visualized portionsof the orbits appear grossly unremarkable. Minimal opacification in the left ethmoid air cells. Theimaged mastoid air cells appear grossly clear. A presumed nasogastric tube present. Mild dilation of the left lateral ventricle likely representing mild left ventricular entrapment. Hyperdensity along the right sylvian fissure compatible with right MCA thrombosis. No acute calvarial fracture is identified. There is soft tissue edema overlying the right hemicraniectomy site and right zygomatic region are essentially unchanged from prior. IMPRESSION: 1.Redemonstration of postsurgical changes of decompressive craniectomy and evolving right middle cerebral artery territory infarct. 2.No hemorrhagic transformation. 3.Extensive cytotoxic edema and mass effect with approximately 2 mm midline shift, [place] similar or slightly improved from prior. 4.Stable right intracranial pressure monitor. The report is dictated by Miranda Bowen MD(resident services coordinator) IJasper MD have personally reviewed and interpreted this examination/study. 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 COMPARISON: No prior study is available for comparison at the time of this dictation. FINDINGS: Redemonstration of post surgical changes of a right hemicraniectomy, and a right MCA infarct. Stable appearance of right intracran ial pressure monitor. There are extra-axial blood products along the right lateral cerebral convexity at the craniectomy site with associated pneumocephalus consistent with postsurgical changes. There is extensive edema and mass effect in the right MCA territory. There is sulcal effacement and effac ement of the right lateral ventricle. There is right to left midline shift measuring up to 4 mm, stable from prior There is no evidence of new acute intracranial hemorrhage. The ventricular morphology is stable compared to prior examination. The basilar cisterns are patent. The orbits appear normal. The paranasal sinuses are clear. The mastoid air cells are clear. IMPRESSION: 1.Redemonstration of postsurgical changes of decompressive right hemicraniectomy for evolving right middle cerebral artery territory infarct. There is significant edema and mass effect with approximately 4 mm of midline shift, unchanged from prior. No evidence of new acute intracranial hemorrhage. > Interpreting Provider: Lonnie Rae MD on 10/22/2022 3:[address] HEAD WO CONTRAST Result Date: 10/22/2022 PROCEDURE: CT HEAD WO CONTRAST DATE/TIME OF EXAM: 10/22/2022 2:33 PM CLINICAL INFORMATION: None relevant/not provided if blank. 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 FINDINGS: Redemonstration of post surgical changes of a right hemicraniectomy, and a right MCA infarct. Stable appearance of right intracranial pressuremonitor. There are extra-axial blood products along the right lateral cerebral convexity at the craniectomy site with associated pneumocephalus consistent with postsurgical changes. There is extensive edema and mass effect in the right MCA territory. There is sulcal effacement and effacement of theright lateral ventricle. There is right to left midline shift measuring up to 4 mm, stable from prior There is no evidence of new acute intracranial hemorrhage. The ventricular morphology is stable compared to prior examination. The basilar cisterns are patent. The orbits appear normal. The paranasal sinuses are clear. The mastoid air cells are clear. IMPRESSION: 1.Stable appearance of postsurgical changes of decompressive right hemicraniectomy for evolving right middle cerebral artery territory infarct. There is significant edema and mass effect with approximately 4 mm of midline shift, unchanged from prior. No evidence of new acute intracranial hemorrhage. Report dictated by Lorenzo Horta MD (nursing resident). ILonnie MD have personally reviewed and interpreted this examination/study. > Interpreting Provider: Lonnie Rae MD on 10/22/2022 3:10 PM XR CHEST 1VW PORTABLE Result Date: 10/21/2022 PROCEDURE: XR CHEST 1VW PORTABLE, DATE/TIME OF EXAM: 10/21/2022 8:53 AM, LOCATION [facility] INDICATION: R53.1: Weakness ADDITIONAL CLINICAL INFORMATION: Ordering Provider Reason ForExam: post intubation COMPARISON: None. Chest radiograph FINDINGS/IMPRESSION: Lines, tubes, hardware: * An endotracheal tube seen with the tip appropriately positioned in the mid thoracic trachea. * Enteric tube is seen with its tip below the diaphragm out of the field of view. Minimal right basilar airspace opacification. Otherwise, no confluent consolidation. No pneumothorax is visible. The cardiomediastinal silhouette is normal. The visible bony thorax is intact. Report dictated by Christopher Tobin MD, (resident services coordinator). HEATHER Ornelas MD have personally reviewed and interpreted this examination/study. > Interpreting Provider: HEATHER FREGOSO MD on 10/21/2022 5:59 PM ECHO TRANSTHORACIC W BUBBLE STUDY Result Date: 10/20/2022 ??? Left??Ventricle: Left ventricle size is normal. Normal wall thickness. Normal systolic functionwith a visually estimated EF of 60 - 65%. Normal wall motion. Normal diastolic function. ??? NormalRV size and systolic function. ??? No significant valvular abnormalities. ??? Bubble study negativefor shunt. ??? Normal IVC and visualized portion of aorta. CT HEAD WO CONTRAST Result Date: 10/20/2022 DATE/TIME OF EXAM: 10/20/2022 9:13 PM, LOCATION [facility] INDICATION: I63.411: Acute cerebrovascular accident (CVA) due to embolism of right middle cerebral artery (CMS/HCC) ADDITIONAL CLINICAL INFORMATION: Ordering Provider Reason For Exam: [facility] COMPARISON: Multiple prior studies, most recently CT head dated 10/20/2022 at 8:19 AM TECHNIQUE: CT of the head was performed withoutcontrast according to standard protocol. FINDINGS: There has been interval postsurgical changes of right hemicraniectomy for management of cerebral edema following right MCA territory infarct. A right-sided subdural drain is in place. There is redemonstration of evolving right middle cerebral artery territory infarct, with associated edema and mass effect with sulcal effacement, effacement of theright lateral ventricle, and [id number] midline shift measuring up to 4 mm and stable from prior(series 5, image 36). A catheter is seen terminating within the region of the right parietal lobe, likely representing an ICP monitor. No evidence of acute intracranial hemorrhage. The ventricular morphology is stable from prior, without evidence of obstructive hydrocephalus. The basilar cisterns are patent. The scott-white matter differentiation otherwise appears normal. The orbits appear normal.The paranasal sinuses are clear. The mastoid air cells are clear. No soft tissue abnormality is identified. IMPRESSION: Interval postsurgical changes of decompressive right hemicraniectomy with ICP monitor and subdural drain in place. 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 > Dictated by Bassam Jovel M.D. (nursing resident) Gonzalez Ornelas MD have personally reviewed and interpreted this examination/study. > Interpreting Provider: Gonzalez Velasco MD on 10/20/2022 11:06 PM XR ABDOMEN KUB PORTABLE Result Date: 10/20/2022 PROCEDURE: XR ABDOMEN KUB PORTABLE DATE/TIME OF EXAM: 10/20/2022 12:44 PM Indication: I63.511: Rightmiddle cerebral artery stroke (CMS/HCC) Evaluation of NG tube placement COMPARISON: None. FINDINGS/IMPRESSION: An enteric tube is seen coursing into the stomach with its tip and side-port in the gastric body. Report dictated by Royer Stovall MD (resident services coordinator). Amanda Ornelas MD have personally reviewed and interpreted this examination/study. > Interpreting Provider: Amanda Prieto MD on 10/20/2022 3:[address] HEAD NON CONTRAST Result Date: 10/20/2022 PROCEDURE: CT HEAD WO CONTRAST DATE/TIME OF EXAM: 10/20/2022 8:19 AM CLINICAL INFORMATION: None relevant/not provided if blank. Indication: R44.9: Left-sided sensory deficit present Additional History: Follow-up of acute stroke COMPARISON: Noncontrast brain CT 19 October 2022. TECHNIQUE: Noncontrast CT brain was performed utilizing standard protocol. CT dose reduction technique was used, including Automated Exposure Control. FINDINGS: There is no definite acute intracranial hemorrhage. There is alarge confluent area of decreased attenuation within the right cerebral hemisphere consistent with a large acute infarct in the distribution of the right middle cerebral artery. Mass effect is produced approximately 4 mm of midline shift right to left. There is some mild effacement of the right side of the suprasellar cistern. There is increased attenuation within the region of the right middle cerebral artery likely representing thrombus. There is some effacement of the right lateral and third ventricles due to the mass effect related to the acute infarct. The left lateral and fourth ventricles are within normal limits in size. No definite areas of abnormal attenuation within the left cerebral hemisphere. Bone window images are negative for depressed skull fracture. When comparison is made to the previous study of 19 October 2022 there has been progression of the acute infarct in the right middle cerebral artery distribution which is larger in size and with new mass effect and midlineshift. IMPRESSION: Findings consistent with a large acute area of infarction in the right cerebral hemisphere in the distribution of the right middle cerebral artery with mass effect and approximately 4 mm of midline shift right to left. There is no definite hemorrhagic transformation. There is hyperdensity of the right middle cerebral artery likely representing thrombus. Clinical correlation and continued close interval follow-up are recommended. Results discussed with the stroke team physician, Dr. Stephanie Hester, on 20 October 2022 approximately 1225 hours. > Interpreting Provider: Joni Fabian MD on 10/20/2022 12:[address] ANGIO BRAIN NECK STROKE Result Date: 10/19/2022 PROCEDURE: CT ANGIO BRAIN NECK STROKE, DATE/TIME OF EXAM: 10/19/2022 8:16 AM, LOCATION [facility] INDICATION: Code Stroke ADDITIONAL CLINICAL INFORMATION: Ordering Provider Reason For Exam: Technologist Note: Additional: EXAMINATION: 1. Computed tomographic (CT) angiography of the head with contrast 2. CT angiography of the neck with contrast TECHNIQUE: CT angiography of the headand neck was obtained after the uneventful administration [...] a concurrent noncontrasted head CT for detailed intracranialfindings including findings suggesting an acute right MCA [...] arteries are patent. The basilar artery is patentpatent. 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 IMPRESSION: 1. [...] Lonnie Rae MD on 10/19/2022 8:[address] BRAIN - Stroke Result Date: 10/19/2022 PROCEDURE: CT BRAIN STROKE, DATE/TIME OF EXAM: 10/19/2022 8:04 AM, LOCATION [facility] INDICATION: Code Stroke ADDITIONAL CLINICAL INFORMATION: Ordering [...] of scott-white matter differentiation in the right frontotemporallobes and the right insula, concerning for an acute infarct. There is suggestion of a hyperdense right MCA likely represent acute thrombus (series 5 image 25). No acute intracranial hemorrhage or intra- or extra-axial fluid collections are identified. The ventricles are of normal size, shape, and morphology. The basal cisterns are patent. No mass effect or midline shift is seen. The scott-white mat ter differentiation is normal. The visualized portions of [...] Lonnie Rae MD on 10/19/2022 8:15 AM Right middle cerebral artery stroke (CMS/HCC) (POA: Unknown) Acute cerebrovascular accident (CVA) due to embolism of right middle cerebral artery (CMS/HCC) (POA: Yes) Nihss score 9 (POA: Yes) Received intravenous tissue plasminogen activator (tPA) in emergency department (POA: Yes) GERD (gastroesophageal reflux disease) (POA: Yes) Hemianopsia (POA: Yes) Weakness (POA: Yes) Left-sided sensory deficit present (POA: Yes) Gaze palsy (POA: Yes) Migraine (POA: Unknown) Hypertension (POA: Unknown) Presence of externally removable percutaneous endoscopic gastrostomy (PEG) tube (CMS/HCC) (POA: Unknown) Assessment Consuelo Darby??is a 41 year old??female who??presented on 10/19 with Right MCA syndrome ??s/p TNK. CTA 1 M1 occlusion. S/P mechanical thrombectomy with R M1 recanalization and TICI2b. CT 10/20/22 with edema and mild shift. S/P decompressive right hemicraniectomy. Echo showed a??mobile??aortic valve vegetation.??MRI brain with scattered cortical R hemisphere infarcts with petechiae. Pt febrile and being evaluated. ID following. ?? Stroke Type:??Ischemic Stroke Mechanism:??Cardioembolic Plan TIA/Stroke Workup; active -R M1 ischemic stroke; active - s/p TICI2b revascularization, TNK - s/p decompressive hemicrani on 10/20 for malignant MCA - HbA1C: 6.0, LDL: 91, Cardiac Enzymes; wnl - atorvastatin 80 mg - warfarin bridge (pharmacy managing) ?? Core Measures TNK??administration: yes Anti-thrombotic: holding while on AC Statin:??atorvastatin 80mg DVT prophylaxis:??heparin gtt + warfarin bridge PEG tube ?? Migraine - verapamil 40 TID ?? GENESIS - cont home amitriptyline ?? 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 - Cardiology will repeat SARAH OP setup after completing abx. ?? Fever - Blood cx still negative, - d-dimer high, US extremities b/l UE shows superficial thrombus in cephalic veins - ID on board. - MRI brain and CT abd pelvis today?? - Continuing cefepime, doxy and vanc ? R illiac and common femoral artery occlusion - s/p R common femoral thrombectomy and patch angioplasty by vasc surgery ?? HTN - home metop ?? Blood Pressure Goals: SBP <160, map >70 ?? Vit D deficiency - Vit D 2,000 U daily ? Individual Modifiable Risk Factors Hypertension:??no Hyperlipidemia:??no Diabetes:??no Atrial Fibrillation:??no Tobacco:??no Family updated this morning over call twice. Case findings discussed with Dr. Drew, Stroke Attending. Karishma Ojeda MD Neurology Resident * Shania Jha, PharmD - 11/09/2022 1:39 PM CDT ACTIVE CONSULTS TO PHARMACY/DISEASE STATE MONITORING Pharmacy Consult: Warfarin Management ASSESSMENT/PLAN Warfarin Indication for anticoagulation: ischemic stroke due to septic emboli Warfarin schedule prior to this encounter: New start Warfarin Dose History Date INR Dose (mg) Comments 11/03 1.2 5 mg New start with heparin bridge 11/04 1.1 5 mg 11/05 1.3 5 mg 11/06 1.4 5 mg 11/07 1.6 5 mg Changed to therapeutic enoxaparin bridge 11/08 1.6 6 mg Goal INR: 2.0 - 3.0 Today's INR: Subtherapeutic at 1.6 (remained the same as yesterday's INR) Pertinent medications during hospitalization: lansoprazole, cefepime, and doxycycline may increase warfarin concentrations Plan: 1. Warfarin dose: 6 mg X 1 -- will continue the same dose today since the dose change is not yet reflected in the INR --> increasing the dose slowly due to patient having had a large stroke 2. Daily INR 3. Bridging therapy with enoxaparin 100 mg Q 12 hours 4. Warfarin education completed on 11/06. Shania Jha, PharmD Subjective/Objective Consuelo Darby is a 42 year old female. The primary encounter diagnosis was Right middle cerebralartery stroke (CMS/HCC). Diagnoses of Weakness, Gaze palsy, Hemianopsia, Left-sided sensory deficitpresent, Dysarthria, At high risk for bleeding after thrombolytic therapy, Acute cerebrovascular accident (CVA) due to embolism of right middle cerebral artery (CMS/HCC), Nihss score 9, Aortic valve vegetation, Occlusion of external iliac artery (CMS/HCC), Cold extremity without peripheral vasculardisease, Acute lower limb ischemia, Leukocytosis, unspecified type, Received intravenous tissue plasminogen activator (tPA) in emergency department, Hypoxia, Ischemia, Primary hypertension, Iliac artery occlusion, right (CMS/HCC), Presence of externally removable percutaneous endoscopic gastrostomy(PEG) tube (CMS/HCC), and Fever, unspecified fever cause were also pertinent to this visit. Height: 5' 4 (162.6 cm) Wt 95.3 kg (210 lb) Body mass index is 36.05 kg/m??. Serum creatinine: 0.45 mg/dL (L) 11/08/22 2346 Estimated creatinine clearance: 186 mL/min (A) * Shania Jha, PharmD - 11/09/2022 1:34 PM CDT ACTIVE CONSULTS TO PHARMACY Pharmacy Consult: Vancomycin ASSESSMENT/PLAN Indication: documented Bacteremia with Goal Trough: 15-20 mcg/ml ID consulted/following: Yes Assessment: Day of treatment: 16 End of treatment date: 11/22 Current dosing regimen: 1500 mg, Q8 hr Renal assessment: considered stable at this time as patient has Estimated Creatinine Clearance: 186mL/min (by C-G formula based on SCr of 0.45 mg/dL). MRSA positive/other pertinent micro: No See chart below Recent Labs Component Name 11/09/22 0654 11/04/22 0931 11/02/22 0917 10/31/22 0948 VANCTROUGH 18.8 15.3 13.2 25.4* Using steady state pharmacokinetic calculations, extrapolated true trough = 15.7 mcg/mL and is therapeutic to goal. Of note, the patient's vancomycin was d/c'd yesterday and restarted so the patient missed one dose. Plan Dosing: Will continue current regimen to target goal trough: 15-20 mcg/ml. Monitoring Will order a vancomycin trough level prior to subsequent maintenance dose on 11/14 at 0700 and adjustregimen if indicated. Continue to monitor patient???s renal function and cultures as needed. Shania Jha, PharmD 1:28 PM 11/09/2022 [facility] Vancomycin Guideline SUBJECTIVE/OBJECTIVE Consuelo Darby is a 42 year old female. The primary encounter diagnosis was Right middle cerebralartery stroke (CMS/HCC). Diagnoses of Weakness, Gaze palsy, Hemianopsia, Left-sided sensory deficitpresent, Dysarthria, At high risk for bleeding after thrombolytic therapy, Acute cerebrovascular accident (CVA) due to embolism of right middle cerebral artery (CMS/HCC), Nihss score 9, Aortic valve vegetation, Occlusion of external iliac artery (CMS/HCC), Cold extremity without peripheral vasculardisease, Acute lower limb ischemia, Leukocytosis, unspecified type, Received intravenous tissue plasminogen activator (tPA) in emergency department, Hypoxia, Ischemia, Primary hypertension, Iliac artery occlusion, right (CMS/HCC), Presence of externally removable percutaneous endoscopic gastrostomy(PEG) tube (CMS/HCC), and Fever, unspecified fever cause were also pertinent to this visit. Height: 5' 4 (162.6 cm) Wt 95.3 kg (210 lb) Body mass index is 36.05 kg/m??. Recent Labs Component Name 11/08/22 2346 11/07/22 2234 11/06/22 2312 11/06/22 0136 CREATININE 0.45* 0.53* 0.46* 0.56 BUN 9 8 8 8 WBC 5.2 4.7 4.7 6.5 7.9 @[id number]@ Dialysis Orders (72h ago, onward) None Radiocontrast within 72 hours The 3 most recent administrations since 11/06/2022 are shown below each listed medication. Other Order Route Dose Action Date iopamidol (Isovue 370) 76 % contrast Intravenous 100 mL $ Given - Contrast 11/07/2022 perflutren lipid microsphere (Definity) injection 0.5 mL Intravenous 0.5 mL $ Given 11/06/2022 Vancomycin Administrations from MAY (last 72 hours) Date/Time Action Medication Dose Rate 11/09/22 0807 $ New Bag/Syringe vancomycin (Vancocin) 1,500 mg in 500 mL NaCl IVPB Premix 1,500 mg 333.33 mL/hr 11/09/22 0013 $ New Bag/Syringe vancomycin (Vancocin) 1,500 mg in 500 mL NaCl IVPB Premix 1,500 mg 333.33 mL/hr 11/08/22 1629 $ New Bag/Syringe vancomycin (Vancocin) 1,500 mg in 500 mL NaCl IVPB Premix 1,500 mg 333.33 mL/hr 11/08/22 0216 $ New Bag/Syringe vancomycin (Vancocin) 1,500 mg in 500 mL NaCl IVPB Premix 1,500 mg 333.33 mL/hr 11/07/22 1824 $ New Bag/Syringe vancomycin (Vancocin) 1,500 mg in 500 mL NaCl IVPB Premix 1,500 mg 333.33 mL/hr 11/07/22 1059 $ New Bag/Syringe vancomycin (Vancocin) 1,500 mg in 500 mL NaCl IVPB Premix 1,500 mg 333.33 mL/hr 11/07/22 0209 $ New Bag/Syringe vancomycin (Vancocin) 1,500 mg in 500 mL NaCl IVPB Premix 1,500 mg 333.33 mL/hr 11/06/22 1818 $ New Bag/Syringe vancomycin (Vancocin) 1,500 mg in 500 mL NaCl IVPB Premix 1,500 mg 333.33 mL/hr * Shania Troy, OT - 11/09/2022 1:03 PM CDT [facility] Physical Medicine and Rehabilitation Occupational Therapy Progress Note Patient: Consuelo Darby Med Record Number: [id number] Date of : 1980 Age: [age] year old PPE worn by staff: gloves;mask - surgical services coordinator: Cheli Recommendations: Discharge OT Discharge Recommendations: Patient would benefit from intensive 3-hour multidisciplinary therapy This recommendation is made due to ongoing intensive OT functional needs: not at baseline due to impaired ability to complete ADL's;functional mobility is significantly below baseline;patient has theability to progress and demonstrate measurable gains as a result of skilled therapy Recommended Transportation Method: Stretcher/Ambulance Nurse and Physical Therapy contacted regarding patient status and/or discharge plan. Activity Level: up ad bigg PRECAUTIONS: Falls, skin, helmet, SBP <160 SUBJECTIVE: Subjective: Pt weakly giving thumbs up when asked if she would like to sit up. Pain Assessment: Pain Location #1 Pain Scale/Observation: Numeric (0-10) Pain Rating Score #1: 0 Sedation Level #1: 1-Awake and alert OBJECTIVE: At start of therapy session, patient found in bed General Appearance: Pt in bed upon arrival in [facility], two family members present in room during session. LDA: PIV, PEG, puentes catheter Mental Status/Cognition: Level of Consciousness-Adult: Alert Orientation Level: Oriented to Person Cognition: Follows one step commands;Attention/concentration-decreased;Processing-delayed;Judgement- decreased;Safety awareness-decreased Mobility: a gait belt and non-slip socks were used for all out of bed activity this date. Bed Mobility: Supine to Sit: Maximum Assistance;X 2 (pt mobilizing RLE towards EOB) Sit to Supine: Maximum Assistance;X 2 Transfers: Sit to Stand: Activity Does Not Occur Stand to Sit: Activity Does Not Occur Balance: Max A for static sitting EOB for 8 min. Pt with brief instance (~30 seconds) of static sitting with min A via RUE support with OT hand. Pt assisted with LUE/LLE PROM. Pt noted with LLE flexor tone. Activities of Daily Living: Lower Body Dressing: Total Assistance ACTIVITY TOLERANCE: Patient's activity tolerance: fair minus Modified [place]: Current Modified [place] Score: 5 AM-PAC 6 Clicks Daily Activity Raw Score:: 10 TREATMENT/INTERVENTIONS: ADL training Cognitive retraining Functional transfer training Endurance training Bed mobility Energy conservation Safety awareness EDUCATION: While performing OT, Patient was instructed in:functional mobility training, self-care training, cognitive retraining, energy conservation, safety awareness/fall precautions , use of call light Presented to patient who demonstrates Questionable understanding of instructions given. INFORMED CONSENT TO TREATMENT: Plan of care is discussed but patient with questionable understanding. ASSESSMENT: Patient continues to benefit from skilled Occupational Therapy to achieve the following functional goals. Short Term Goals: Goal Formation With patient/family Patient will increase orientation to?person, place, time and situation Patient will perform supine to/from sit??with moderate assist and X 2 Patient will tolerate treatment??20 minutes, with good endurance and with minimal pain Group Home Goal(s): Patient to discharge to appropriate next level of inpatient care Plan: Patient continues to benefit from skilled therapy services., Continue with goals as established. If patient is discharged from the facility, this note serves as a discharge summary if further occupational therapy visits did not occur. Refer to filed flowsheet for further details. Following therapy session, patient left in bed, with bed alarm on , with call light within reach, with family in room, with Kenya BOGGS aware, with therapy cues visible on white board. * Rosa Vegas PT - 11/09/2022 10:30 AM CDT [facility] Physical Medicine and Rehabilitation Physical Therapy Progress Note Patient: Consuelo Darby Med Record Number: [id number] Date of : 1980 Age: [age] year old PPE worn by staff: gloves;mask - procedural PPE worn by patient: gown - patient, clean;socks - clean Tech: Manuela Recommendations: PT Discharge Recommendations: Patient would benefit from intensive 3-hour multidisciplinary therapy This recommendation is made due to ongoing intensive PT functional needs: patient demonstrates a significant functional decline and would benefit from skilled therapy intervention to restore function;patient has the need for more than one skilled therapy service SUBJECTIVE: Subjective: RN reports patient is febrile but cleared to work with PT this date. When asked if she would like to participate in PT treatment, patient gives a 'thumbs up' Pain Assessment: Pain Location #1 Pain Scale/Observation: Behaviors Behaviors/Assumed Pain Present : Calm (patient shakes head 'no' when asked if she has pain) PRECAUTIONS: Weight Bearing Status: (no restrictions) Activity Level: Up ad bigg Other Precautions: Fall, Helmet OBJECTIVE: At start of therapy session, patient found in bed and with no alarm; family member and RN Aselle present General Appearance: Adult female, in NAD; helmet donned for upright activity LDAs: IV's:??Peripheral line, Catheter,??and PEG Tube Vitals: (*Assess the levels of oxygen saturations both for room air and 02 unless rest on room air is 88% or less). Pre Activity BP: 127/71 HR: 88 Sp02 97% Room Air Post Activity BP: 108/67 HR: 90 Sp02 97% Room Air Mental Status/Cognition: Level of Consciousness-Adult: Lethargic Orientation Level: Oriented X4 Cognition: Follows one step commands;Processing-delayed Mobility: A gait belt and non-slip socks were used for all out of bed activity this date. Bed Mobility: Rolling: Moderate Assistance to Left;Maximal Assistance to Right Supine to Sit: Maximum Assistance;X 2 (patient initiates transfer using RUE and RLE) with HOB in semi-fowlers position Sit to Supine: Maximum Assistance;X 2 (patient uses RUE to assist with eccentric trunk control and elevates RLE up onto bed with minimal assist) Balance: Sitting - Static: Fair -;With One Upper Extremity Support (quickly fatigues into R posterolateral trunk lean with forward head position but is able to correct to midline with verbal and tactile cues) Sitting - Dynamic: Poor +;With One Upper Extremity Support Standing - Static: Poor +;With One Upper Extremity Support (and bilateral knee block in Sera Steady) Standing - Dynamic: Not tested Therapeutic Exercises: Seated RLE hip flexion: x5 Seated RLE LAQ with emphasis on ankle in DF position: x5 Seated LLE hip flexion PROM: x5 Seated LLE knee extension PROM: x5 ACTIVITY TOLERANCE: Patient's activity tolerance: poor plus. TREATMENT/INTERVENTIONS: Patient seen for bed mobility training, seated BLE therapeutic exercises, and monitoring of vitals Modified Maryann: Current Modified [place] Score: 5 AM-PAC 6 Clicks Mobility Raw Score:: 8 EDUCATION: While performing PT,??Patient??was instructed in: functional mobility training, weight bearing status, safety awareness/fall precautions, discharge planning, use of call light? Presented to patient who demonstrates??Fair??understanding of instructions given. ? ASSESSMENT: Patient would benefit from additional Physical Therapy sessions to achieve the following functionalgoals to enhance independence. ?? Short Term Goals: Goal Formation?Patient unable to participate in goal formulation Patient will perform bed mobility??with moderate assist Patient will transfer bed to/from chair??with maximal assist Patient will sit EOB x10 minutes with minimal assist ?? Environmental Marketer Goal(s): Patient to discharge to appropriate next level of inpatient care. ?? INFORMED CONSENT TO TREATMENT:? Plan of care including recommended therapy, goals and frequency, discussed with patient who??demonstrates understanding??and agrees to proceed. ?? Equipment Issued:??none? Plan:??Patient continues to benefit from skilled therapy services. If patient is discharged from the facility, this note serves as a discharge summary if further physical therapy visits did not occur. Refer to filed flowsheet for further details. Following therapy session, patient left in bed, with call light within reach, with family in room, with therapy cues visible on white board. * Isamar Ochoa APRN-ASHOK - 11/09/2022 9:35 AM CDT PLAN OF CARE 42F admitted for stroke with urinary retention requiring indwelling puentes catheter placement. Foleyreplaced by 11/05 (level 1). Primary team called 11/09 regarding puentes plan. PLAN: - Void trial 11/10/22 at 0400. - Bladder scan patient 6 hours after puentes removal if patient is unable to void. If > 400cc in bladder, nursing to replace puentes catheter. If patient is able to void, nursing to obtain PVR x1. [facility] * Anita Richards - 11/09/2022 9:11 AM CDT Care Coordination Progress Note DISCHARGE PLAN: New patient to caseload Chart reviewed Patient is not medically ready to transition to next level of care Patient continues to have fever; Continue??cefepime 2 gm q 8hrs, continue vancomycin for two more weeks (end date 11/22) doxycycline for total of four weeks (start date 11/05- 12/03) Post acute recommendation: Intense 3 hour per day multidisciplinary inpatient therapies Discharge Facility Information: [facility] Anticipated level of care at discharge: Acute Rehab Facility: Anticipated level of care provider: [facility] (ALL LOCATIONS): Anticipated Discharge Date: 11/10/22: Orientation Level: Oriented X4: Family Support (Name and Phone): Extended Emergency Contact Information Primary Emergency Contact: Hi Darby Address: [address] [place] [address] [place] [address] [facility] Relation: Spouse Secondary Emergency Contact: Sandra Disla [facility] Mobile Relation: Mother Transportation at Discharge: Ambulance: READMISSION RISK SCORE is 16 at 9:12 AM 11/09/2022.: Name: Anita Richards * Alhaji Otoole MD - 11/09/2022 8:33 AM CDT [facility] Infectious Diseases Progress Note Admitted on: 10/19/2022 7:53 AM Hospital stay: Day 21 Room: 522/01 Attending: Jaime Drew MD Reason for ID consultation: Fever, 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 Found to have right MCA occulusion. .Interventional neurology was consulted and patient underwent diagnostic??catheter??cerebral??angiogram??and revascularization of right MCA occlusion on 10/19/2022. Hospital stay was complicated by developing cerebral edema for which neurosurgery was consulted and patient was taken to the OR for right decompressive hemicraniectomy on 10/20/2022. As part of embolic/ischemic strokework up, patient also underwent SARAH and showed vegetation on aortic side of??left??coronary cusp, negative bubble study, no thrombus in left atrial appendage. 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 Bartonella PCR negative in blood. Patient also underwent to throbectomy on 10/30.Patient started having a high grade fever on 11/03 so ID is re-consulted.??Now on Van, Cefepime and doxy SUBJECTIVE & INTERVAL HISTORY: Patient seen and examined. Febrile overnight, tmax 102.6 Current Abx Van, Cefepime and doxy Inpatient Medications ??? 0.9% NaCl 10-40 mL Intracatheter q8h ??? 0.9% NaCl 3 mL Intracatheter q8h ??? acetaminophen 650 mg Enteral Tube q6h ??? atorvastatin 80 mg Enteral Tube AT BEDTIME ??? cefepime 2 g Intravenous q8h ??? doxycycline monohydrate 100 mg Enteral Tube q12h ??? enoxaparin 1 mg/kg Subcutaneous q12h ??? guaiFENesin 10 mL Enteral Tube q12h ??? iopamidol Intravenous Contrast - Once ??? lansoprazole 30 mg Enteral Tube QDAY BEFORE BREAKFAST ??? loratadine 10 mg Enteral Tube QDAY ??? metoprolol tartrate IR 25 mg Enteral Tube q12h ??? perflutren lipid microsphere 0.5 mL Intravenous intra-Procedure multiple ??? polyethylene glycol 3350 17 g Enteral Tube BID ??? senna-docusate 2 tablet Enteral Tube QDAY ??? tamsulosin 0.4 mg Enteral Tube QDAY ??? vancomycin 1,500 mg Intravenous q8h ??? vancomycin (VANCOCIN) IV dose per pharmacy Does not apply DIRECTED ??? verapamil 40 mg Enteral Tube q8h ??? Vitamin D3 (cholecalciferol) 2,000 Units Enteral Tube QDAY ??? warfarin Other QDay 1700 PRN Medications ??? 0.9% NaCl ??? SALINE LOCK, INSERT AND MAINTAIN AND 0.9% NaCl AND 0.9% NaCl ??? bisacodyl ??? diphenhydrAMINE-zinc acetate ??? oxyCODONE (immediate release) OBJECTIVE: Vital Signs: BP 124/84 Pulse 107 Temp (!) 102.6 ??F (39.2 ??C) (Rectal) Resp 18 Ht 1.626 m (5' 4 ) Wt 95.3 kg (210 lb) SpO2 95% Temp (24hrs), Av.9 ??F (38.3 ??C), Min:98.6 ??F (37 ??C), Max:102.6 ??F (39.2 ??C) I/O: Intake/Output Summary (Last 24 hours) at 11/09/2022 0833 Last data filed at 11/08/2022 1600 Gross per 24 hour Intake -- Output 4400 ml Net -4400 ml Physical Exam: General:??Alert, cooperative, no distress, obese HEENT: NC, AT, EOMI, MMM, Sutures to head cdi Chest wall:??No tenderness or deformity Lungs: Clear to auscultation bilaterally Heart: RRR, S1, S2 normal, no murmur, click, rub or gallop Abdomen: Soft, non-distended, non-tender, +BS Back:??Symmetric, no curvature. ROM normal. No CVA tenderness Extremities:??Atraumatic, no cyanosis or edema Skin:??Skin color, texture, turgor normal. Neurologic: follows commands Psychiatry: Appropriate mood/affect Lines: LABS CBC: Recent Labs Component Name 11/08/22 2346 11/07/22 2234 11/06/22231110/23/22 0129 10/22/22 0153 WBC 5.2 4.7 4.7 - - RBC 3.59* 3.18* 3.20* - - HGB 10.4* 9.2* 9.3* - - HCT 33.1* 29.5* 29.5* - - MCV 92.2 92.8 92.2 - - PLT - - - - 199 - = values in this interval not displayed. BMP: Recent Labs Component Name 11/09/22 0654 11/08/22 2346 11/07/224 11/06/22231110/20/22 0302 10/19/2282306/15/22 0757 NA - 141 141 140 - 139 138 CL - 107 108* 108* - 108* 107 CO2 - 24 22 22 - 21* 23 BUN - 9 8 8 - 13 12 CREATININE - 0.45* 0.53* 0.46* - 0.84 0.74 ALB 2.6* - - - - 3.5 3.6 PROT 7.3 - - - - 7.7 7.5 - = values in this interval not displayed. estimated creatinine clearance is 186 mL/min (A) (by C-G formula based on SCr of 0.45 mg/dL (L)). Recent Labs Component Name 11/09/22 0654 10/19/2282306/15/22 0757 ALT 77* 16 9 AST 67* 19 17 ALKPHOS 73 52 44 TBILI 0.3 0.1* 0.1* Bartonella PCR negative Mycoplasma IGM and IGG negative Chlamydia IGM/IGG negative Q fever IGG,IGM negative Bartonella IGG,IGM negative MICROBIOLOGY: Urine and blood cx with no growth HISTOPATHOLOGY: None at this admission IMAGING & PROCEDURE: Pertinent images independently reviewed; report in chart. 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 Patient was started on vancomycin and ceftriaxone and doxycycline per the previous ID consult and planned to complete4 weeks. Ceftriaxone transitioned to cefepime for fevers. ?? 1.) Aortic vegetations, possible cx negative endocarditis 2.) Fevers - re consulted for fevers - UA, urine cx neg, cxr negative, blood cx negative - CT PE negative Plan/ Recommendations: Continue cefepime 2 gm q 8hrs, continue vancomycin for two more weeks (end date 11/22) doxycycline for total of four weeks (start date 11/05- 12/03) Please obtain MRI of head with and without contrast and CT chest, abdomen and pelvis with contrast Follow CBC with diff,??BMP ??weekly (at minimum) while on IV antibiotics ?? Alhaji Otoole M.D. Infectious Diseases ?? Associated attestation - Angelica Cruz MD - 11/10/2022 9:03 AM CDT [facility] Infectious Diseases Attending Note Documentation Date/Time: 11/09/2022, 8:30 PM The patient was seen and evaluated with Internal Medicine resident Alhaji Otoole M.D. I agree with the findings as described in the note, including the history, interval changes, ROS, examination, objective data interpretation, impression and plan as documented, though specifically I note the following: Interval History: - Still febrile. - CT A/P w contrast showed a 2 cm rim-enhancing collection along the inferior aspect of G tube withsmall locule of gas, and progressive right inguinal region inflammatory mass encasing the right femoral vessels, likely a postsurgical hematoma. Assessment: 41 year old female with PMH of HTN, migraine, GERD, presented on 10/19/2022 as code stroke due to acute onset left sided weakness, left sided sensory deficits, and dysarthria. Found to have right MCAocculusion. On empirical culture negative infective endocarditis treatment. Called back for new fever. New fever without leukocytosis: BCx and UCx NG; no diarrhea, no signs of pneumonia, no CVC line. Given fever persistent, CT A/P w contrast was done 11/09, showing an abscess inferior to the PEG tube (was placed 11/01). Please call [facility] for abscess I&D and management. CT A/P also revealed a progressive postsurgical hematoma. Please call vascular surgery. MRI Brain pending to r/o intra-cranial infection. Abscess inferior to the PEG tube: See discussion above. Right groin postsurgical hematoma, progressively: See discussion above. 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 DDx: IE, vs Libman-Sacks endocarditis, vs fibroelastoma, vs rheumatic valvular disease (less likely), vs Lambl excrescence (less likely). CT C/A/P w contrast 10/25 for possible source/disseminated infection work up, largely unrevealed. Serology testing for Coxiella, Bartonella, Mycoplasma and Chlamydia for possible culture negative endocarditis, all negative. Empiric antibiotics started 10/25 to cover at least Staphylococcus and Streptococcus, and atypical bacterial infection. On IV vancomycin and ceftriaxone, but doxycycline never started. Spiked fever 11/04, ceftriaxone ->cefepime, and added on doxycycline 11/05, will keep the plan for 4 weeks treatment. Cardio-embolic/ischemic stroke: Unusual presentation for this 41-year-old patient with no significant risk factors for CVA. DDx hypercoagulable state, autoimmune disorder, etc. S/p 10/19 with IR underwent diagnostic catheter cerebral angiogram and revascularization of right MCA occlusion. S/p 10/20 with neurosurgery for R sided [id number] decompressive sonya-craniectomy for treatment of refractory intracranial hypertension. Transaminitis. Renal function: Estimated Creatinine Clearance: 186 mL/min (A) (by C-G formula based on SCr of 0.45mg/dL (L)). Plan/Recommendations: - Continue IV vancomycin, cefepime and doxycycline for now. - Please call [facility] for management of abscess inferior to the PEG tube. When abscess I&D vs otherprocedure is performed, please send cultures (Gram stain, aerobic culture, anaerobic culture, fungal smear & culture). - Right groin postsurgical hematoma, progressively, please call vascular surgery for management. - Follow the result of MRI Brain wwo contrast, to eval of post surgical site infection/intracranialinfection. Thank you for allowing us to participate in the care of this patient. Infectious Diseases will continue to follow along, please call with questions or concerns. Angelica Cruz MD Infectious Diseases Attending * Felicia Lopez RN - 11/09/2022 6:21 AM CDT Pt nonverbal but nodding and signing appropriately. VSS. Pain controlled w/ PRN medication. Voidingper puentes. Puentes care complete. No BM.WCTM * Felicia Lopez RN - 11/09/2022 6:21 AM CDT Problem: ELOPEMENT/ABDUCTION Goal: Risk for elopement &/or abduction during hospitalization is minimized Outcome: Progressing Problem: Pain/Discomfort Goal: Patient uses pharmacological and non-pharmacological pain management strategies. Outcome: Progressing Goal: Patient verbalizes acceptable level of pain relief and ability to engage in desired activity. Outcome: Progressing Problem: Mobility Goal: Patient's mobility/activity will be maintained as optimum level for age, diagnosis and physical limitations Outcome: Progressing Goal: Continuum of care needs are further met through referral to outpatient services when appropriate. Outcome: Progressing Goal: Patient reports the ability to perform Activities of Daily Living. Outcome: Progressing Problem: Communication Impairment/Dysarthria Goal: Ability to express needs and understand communication Outcome: Progressing Problem: Nutrition Goal: Nutritional status is improving Outcome: Progressing Problem: Glycemic Control Goal: Clinical indication of glycemia balance is achieved Outcome: Progressing Problem: Knowledge Deficit,Education,Discharge Plan Goal: The patient/family will understand cerebrovascular disease and its symptoms, treatment and management Outcome: Progressing Problem: Oral Intake: Inadequate oral intake Goal: Total intake will meet estimated nutrient needs Outcome: Progressing Problem: Swallowing Goal: LTG - Patient will tolerate the least restrictive diet consistency to allow for safe consumption of daily meals Outcome: Progressing Goal: STG - Patient will participate in instrumental assessment of swallowing as appropriate Outcome: Progressing Goal: STG - Patient will tolerate therapeutic trials of recommended consistency without clincial signs and symptoms of aspiration Outcome: Progressing Goal: STG - Patient will tolerate recommended food and liquid consistencies without clinical signs and symptoms of aspiration Outcome: Progressing Goal: STG - Patient will complete swallowing exercises Outcome: Progressing Goal: STG - Patient/family will complete oral motor exercises for improved bolus control Outcome: Progressing Problem: Transfers Goal: STG - Transfer from bed to chair Outcome: Progressing Problem: Risk for Violence: Self-Directed or Other Directed Description: Diagnosis: Risk for self-directed Violence or Risk for Directed Violence Risk Factors: Biochemical/neurologic imbalances, impulsivity, manic excitement, psychotic symptomatology, rage reaction, restlessness Possibly Evidenced By: agitated behaviors, delusional thinking, hallucinations, loud/threatening/profane speech, poor impulse control, provocative behaviors, verbal threats against others, verbal threats against self Goal: Patient will verbalize control of feelings. Outcome: Progressing Goal: Patient will respond to interventions when potential or actual loss of control occurs. Outcome: Progressing Goal: Patient will refrain from provoking others to physical harm. Outcome: Progressing Goal: Patient will display nonviolent behaviors toward others in the hospital, with the aid of medications and nursing interventions. Outcome: Progressing Goal: Patient will seek help when experiencing aggressive impulses. Outcome: Progressing Goal: Patient will refrain from verbal threats and loud, profrane language toward others. Outcome: Progressing Goal: Patient will be safe and free from injury. Outcome: Progressing Problem: Skin Integrity Goal: Skin integrity is maintained or improved Outcome: Progressing Problem: Neurological Deficit Goal: Neurological status is stable or improving Outcome: Progressing * Jaime Drew MD - 11/08/2022 4:50 PM CDT The above note was reviewed. The patient was seen and examined. I would add the following: I saw and examined the patient with the resident and/or medical student and/or nurse practitioner. I have verified all details of the note and agree with his/her documentation with additions and modifications as listed in my separate note. Please refer to the resident's, medical student's, or nursepractitioner's note for plans of active problems not discussed in this note. 42F p/w M1 occlusion s/p TNK and MT and TICI2b revascularization. TTE showed mobile aortic valve vegetation. Developed MCA syndrome s/p hemicrani. MT c/b R iliac and common femoral a. occlusion s/p thrombectomy. Developed fever- consulted ID, broaden abx, Cxs- fever improving. D dimer was high though possibly inflammatory given improvement of symptoms with abx. US extremities performed and ruled out DVT. CTA chest -ve. - abx per ID - constipation; BM regimen - On warfarin bridge now. MEDICATIONS FOR CURRENT ENCOUNTER: SCHEDULED MEDICATIONS: 0.9% NaCl injection 10-40 mL, Intracatheter, q8h 0.9% NaCl injection 3 mL, Intracatheter, q8h acetaminophen (Tylenol) tablet 650 mg, Enteral Tube, q6h atorvastatin (Lipitor) tablet 80 mg, Enteral Tube, AT BEDTIME cefepime (Maxipime) 2,000 mg in 0.9% NaCl IV 50 mL IVPB, Intravenous, q8h doxycycline monohydrate capsule 100 mg, Enteral Tube, q12h enoxaparin (Lovenox) injection 100 mg, Subcutaneous, q12h guaiFENesin (Robitussin) solution 10 mL, Enteral Tube, q12h iopamidol (Isovue 370) 76 % contrast, Intravenous, Contrast - Once lansoprazole (Prevacid) suspension 30 mg, Enteral Tube, QDAY BEFORE BREAKFAST loratadine (Claritin) tablet 10 mg, Enteral Tube, QDAY metoprolol tartrate IR (Lopressor) tablet 25 mg, Enteral Tube, q12h perflutren lipid microsphere (Definity) injection 0.5 mL, Intravenous, intra- Procedure multiple polyethylene glycol 3350 (Miralax) packet 17 g, Enteral Tube, QDAY senna-docusate (Senokot-S) tablet 2 tablet, Enteral Tube, QDAY tamsulosin (Flomax) capsule 0.4 mg, Enteral Tube, QDAY vancomycin (Vancocin) 1,500 mg in 500 mL NaCl IVPB Premix, Intravenous, q8h vancomycin (Vancocin) IV dose per pharmacy, Does not apply, DIRECTED verapamil (Isoptin) tablet 40 mg, Enteral Tube, q8h vitamin D3 (Cholecalciferol) 25 MCG (1000 UNITS) tablet 2,000 Units, Enteral Tube, QDAY warfarin (Coumadin) dose per pharmacy, Other, QDay 1700 [COMPLETED] 0.9% NaCl IV bolus, Intravenous, Once [COMPLETED] 0.9% NaCl IV bolus, Intravenous, Once [COMPLETED] diphenhydrAMINE (Benadryl) capsule 25 mg, Enteral Tube, Once [COMPLETED] enoxaparin (Lovenox) injection 100 mg, Subcutaneous, q12h [COMPLETED] ketorolac (Toradol) injection 15 mg, Intravenous, Once [COMPLETED] magnesium sulfate 2 g in 50 mL bolus, Intravenous, Once [COMPLETED] metoclopramide (Reglan) tablet 10 mg, Enteral Tube, Once [COMPLETED] potassium chloride (Klor-Con) packet 20 mEq, Enteral Tube, Once [COMPLETED] potassium chloride 40 mEq in 270 mL bolus, Intravenous, Once [COMPLETED] warfarin (Coumadin) tablet 5 mg, Enteral Tube, once warfarin [COMPLETED] warfarin (Coumadin) tablet 6 mg, Enteral Tube, once warfarin ?? [] lidocaine PF (Xylocaine MPF) 1 % injection, Intradermal, Once ?? CONTINUOUS MEDICATIONS: PRN MEDICATIONS: 0.9% NaCl injection 10-40 mL, Intravenous, PRN 0.9% NaCl injection 3 mL, Intracatheter, PRN bisacodyl (Dulcolax) suppository 10 mg, Rectal, QDAY PRN diphenhydrAMINE-zinc acetate (Benadryl Extra Strength) 2-0.1 % cream, Topical, PRN ?? oxyCODONE (immediate release) (Roxicodone) tablet 5 mg, Enteral Tube, q6h PRN Patient Vitals for the past 24 hrs: Temp Pulse Resp BP 11/08/22 0839 (!) 100.6 ??F (38.1 ??C) 94 -- 118/64 11/08/22 0650 -- 109 -- 143/80 11/08/22 0430 98.9 ??F (37.2 ??C) 103 -- 139/70 11/08/22 0051 98.8 ??F (37.1 ??C) 102 -- 147/73 11/07/22 2001 98.2 ??F (36.8 ??C) 104 18 119/57 Intake/Output Summary (Last 24 hours) at 11/08/2022 1650 Last data filed at 11/08/2022 0800 Gross per 24 hour Intake 1095 ml Output 3500 ml Net -2405 ml Labs: Recent Labs Component Name 10/20/22 0302 06/15/22 0757 CHOL 173 204* TRIG 201* 251* HDL 42 37* LDLCALC 91 117* Recent Labs Component Name 10/20/22 1015 HGBA1C 6.0* Recent Labs Component Name 11/07/22 2234 11/06/22 2312 11/06/22 0136 11/05/22 1124 NA 141 140 139 139 POTASSIUM 3.6 3.6 3.5 3.8 CL 108* 108* 111* 104 CO2 22 22 21* 23 BUN 8 8 8 8 CREATININE 0.53* 0.46* 0.56 0.54* CALCIUM 8.6 8.5 8.3* 8.5 MAGNESIUM 2.8* 2.0 2.0 2.0 PHOS 4.3 4.3 3.6 3.2 Recent Labs Component Name 11/07/22 2234 11/06/22 2312 11/06/22 0136 11/05/22 1227 WBC 4.7 4.7 6.5 7.9 6.9 HGB 9.2* 9.3* 10.0* 9.7* 9.7* HCT 29.5* 29.5* 32.8* 30.2* 29.6* PLTCOUNT 325 195 155 247 344 RBC 3.18* 3.20* 3.42* 3.28* 3.24* Recent Labs Component Name 11/08/22 0254 11/07/22 0305 11/06/22 2312 11/06/22 1830 11/06/22 0740 11/06/22 0136 PT 18.3* 18.4* - - - 17.1* INR 1.6 1.6 - - - 1.4 PTT - - 63.4* 68.6* 97.1* 100.4* Recent Labs Component Name 10/30/22 1333 10/30/22 1259 10/21/22 0801 10/20/22 2246 PH 7.40 7.33* 7.40 7.36 PCO2 39 49* 31* 32* PO2 228* 208* 143* 179* FIO2 - - 30.0 40.0 No data found. Micro: Microbiology Results (Displays last 21 days for this encounter ONLY) Procedure Component Value - Date/Time RESPIRATORY PANEL WITH SARS-COV-2 BY PCR ([facility]) [[id number]] (Normal) Collected: 11/05/22 1310 Lab Status: Final result Specimen: Microbiology from Nasopharyngeal Updated: 11/05/22 7374 Adenovirus PCR Not detected Coronavirus 229E PCR Not detected Coronavirus HKU1 PCR Not detected Coronavirus NL63 PCR Not detected Coronavirus OC43 PCR Not detected COVID-19 PCR Not detected Human Metapneumovirus PCR Not detected Human Rhinovirus/Enterovirus PCR Not detected Influenza A PCR Not detected Influenza B PCR Not detected Parainfluenza Virus 1 PCR Not detected Parainfluenza Virus 2 PCR Not detected Parainfluenza Virus 3 PCR Not detected Parainfluenza Virus 4 PCR Not detected Respiratory Syncytial Virus PCR Not detected Bordetella parapertussis PCR Not detected Bordetella pertussis PCR Not detected Chlamydia pneumoniae PCR Not detected Mycoplasma pneumoniae PCR Not detected Narrative: This nucleic amplification assay has received FDA authorization via the [employer]. CULTURE URINE [[id number]] (Normal) Collected: 11/05/22 1307 Lab Status: Final result Specimen: Urine Cath Straight Updated: 11/06/22 1617 Culture Urine No growth (<100 CFU/mL) CULTURE BLOOD [[id number]] (Normal) Collected: 11/05/22 1054 Lab Status: Preliminary result Specimen: Blood Peripheral Updated: 11/07/22 1401 Culture No growth CULTURE URINE [[id number]] (Normal) Collected: 10/27/22 1208 Lab Status: Final result Specimen: Urine Clean Catch Updated: 10/28/22 2236 Culture Urine No growth (<100 CFU/mL) CULTURE BLOOD FUNGUS [[id number]] (Normal) Collected: 10/27/22 1158 Lab Status: Preliminary result Specimen: Blood Peripheral Updated: 11/06/22 0848 Culture No fungus isolated CULTURE BLOOD AFB [[id number]] (Normal) Collected: 10/27/22 1158 Lab Status: Preliminary result Specimen: Blood Peripheral Updated: 11/06/22 1135 Culture No acid-fast bacillus isolated BARTONELLA SPECIES PCR [[id number]] Collected: 10/27/22 115 Lab Status: Final result Specimen: Blood Updated: 11/01/22 1638 Bartonella Source Plasma Bartonella Species by PCR Not Detected Comment: NOT DETECTED - A negative result does not rule out the presence of PCR inhibitors in the patient specimen or assay specific nucleic acid in concentrations below the level of detection by the assay. INTERPRETIVE INFORMATION: Bartonella Species Detection by PCR This test was developed and its performance characteristics determined by [facility]. It has not been cleared or approved by the US Food and Drug Administration. This test was performed in a CLIA certified laboratory and is intended for clinical purposes. Performed By: [facility] [address] [place] [id number] Microfilm Mounter: Boo Bond MD, PhD CLIA Number: [id number] CULTURE BLOOD [[id number]] (Normal) Collected: 10/25/22 0900 Lab Status: Final result Specimen: Blood Peripheral Updated: 10/30/22 1330 Culture No growth day 5 CULTURE BLOOD [[id number]] (Normal) Collected: 10/24/22 1313 Lab Status: Final result Specimen: Blood Peripheral Updated: 10/29/22 1632 Culture No growth day 5 MRSA DNA PCR [[id number]] (Normal) Collected: 10/23/22 1234 Lab Status: Final result Specimen: Microbiology from Nasal Updated: 10/23/22 2044 MRSA DNA by PCR Not detected Narrative: Methicillin-resistant Staphylococcus aureus (MRSA) DNA is not detected (presumed not colonized withMRSA). CULTURE BLOOD [[id number]] (Normal) Collected: 10/23/22 1216 Lab Status: Final result Specimen: Blood Peripheral Updated: 10/28/22 1702 Culture No growth day 5 CULTURE BLOOD [[id number]] (Normal) Collected: 10/23/22 1205 Lab Status: Final result Specimen: Blood Peripheral Updated: 10/28/22 1702 Culture No growth day 5 Length of stay: 20 Problem List Right middle cerebral artery stroke (CMS/HCC) (POA: Unknown) Acute cerebrovascular accident (CVA) due to embolism of right middle cerebral artery (CMS/HCC) (POA: Yes) Nihss score 9 (POA: Yes) Received intravenous tissue plasminogen activator (tPA) in emergency department (POA: Yes) GERD (gastroesophageal reflux disease) (POA: Yes) Hemianopsia (POA: Yes) Weakness (POA: Yes) Left-sided sensory deficit present (POA: Yes) Gaze palsy (POA: Yes) Migraine (POA: Unknown) Hypertension (POA: Unknown) Presence of externally removable percutaneous endoscopic gastrostomy (PEG) tube (CMS/HCC) (POA: Unknown) Present on Admission: ??? Hemianopsia ??? Weakness ??? Left-sided sensory deficit present ??? Gaze palsy ??? Acute cerebrovascular accident (CVA) due to embolism of right middle cerebral artery (CMS/HCC) ??? Nihss score 9 ??? Received intravenous tissue plasminogen activator (tPA) in emergency department ??? GERD (gastroesophageal reflux disease) Routine multidisciplinary rounds were completed today with the presence of the primary team staff, residents, PT/OT/SIGNALING PROJECT ENGINEER and CM/SW. Jaime Drew MD Vascular and Interventional Neurology * Maicol Oden, PharmD - 11/08/2022 4:07 PM CDT ACTIVE CONSULTS TO PHARMACY/DISEASE STATE MONITORING Pharmacy Consult: Vancomycin ASSESSMENT/PLAN Indication: documented Bacteremia with Goal Level: 15-20 mcg/ml ID consulted/following: Yes Assessment: Day of treatment: 15 End of treatment date: 11/22/22? Current dosing regimen: 1500 mg, Q8 hr Renal assessment: considered stable at this time as patient has Estimated Creatinine Clearance: 157.9 mL/min (A) (by C-G formula based on SCr of 0.53 mg/dL (L)). MRSA positive/other pertinent micro: No Recent Labs Component Name 11/04/22 0931 11/02/22 0917 10/31/22 0948 10/28/22 0920 VANCTROUGH 15.3 13.2 25.4* 16.5 Will continue current regimen as previously ordered and get a new level. Plan Dosing: Will continue current regimen to target goal level: 15-20 mcg/ml. Monitoring Will order a vancomycin trough level prior to subsequent maintenance dose on 11/09/22 at 0700 and adjust regimen if indicated. Continue to monitor patient???s renal function and cultures as needed. Maicol Oden, PharmD 3:58 PM 11/08/2022 [facility] Vancomycin Guideline SUBJECTIVE/OBJECTIVE Consuelo Darby is a 42 year old female. The primary encounter diagnosis was Right middle cerebralartery stroke (CMS/HCC). Diagnoses of Weakness, Gaze palsy, Hemianopsia, Left-sided sensory deficitpresent, Dysarthria, At high risk for bleeding after thrombolytic therapy, Acute cerebrovascular accident (CVA) due to embolism of right middle cerebral artery (CMS/HCC), Nihss score 9, Aortic valve vegetation, Occlusion of external iliac artery (CMS/HCC), Cold extremity without peripheral vasculardisease, Acute lower limb ischemia, Leukocytosis, unspecified type, Received intravenous tissue plasminogen activator (tPA) in emergency department, Hypoxia, Ischemia, Primary hypertension, Iliac artery occlusion, right (CMS/HCC), Presence of externally removable percutaneous endoscopic gastrostomy(PEG) tube (CMS/HCC), and Fever, unspecified fever cause were also pertinent to this visit. Height: 5' 4 (162.6 cm) Wt 95.3 kg (210 lb) Body mass index is 36.05 kg/m??. Recent Labs Component Name 11/07/22 2234 11/06/22 2312 11/06/22 0136 11/05/22 1227 11/05/22 1124 CREATININE 0.53* 0.46* 0.56 - 0.54* BUN 8 8 8 - 8 WBC 4.7 4.7 6.5 7.9 6.9 - @[id number]@ Dialysis Orders (72h ago, onward) None Radiocontrast within 72 hours The 3 most recent administrations since 11/05/2022 are shown below each listed medication. Other Order Route Dose Action Date iopamidol (Isovue 370) 76 % contrast Intravenous 100 mL $ Given - Contrast 11/07/2022 perflutren lipid microsphere (Definity) injection 0.5 mL Intravenous 0.5 mL $ Given 11/06/2022 Vancomycin Administrations from MAY (last 72 hours) Date/Time Action Medication Dose Rate 11/08/22 0216 $ New Bag/Syringe vancomycin (Vancocin) 1,500 mg in 500 mL NaCl IVPB Premix 1,500 mg 333.33 mL/hr 11/07/22 1824 $ New Bag/Syringe vancomycin (Vancocin) 1,500 mg in 500 mL NaCl IVPB Premix 1,500 mg 333.33 mL/hr 11/07/22 1059 $ New Bag/Syringe vancomycin (Vancocin) 1,500 mg in 500 mL NaCl IVPB Premix 1,500 mg 333.33 mL/hr 11/07/22 0209 $ New Bag/Syringe vancomycin (Vancocin) 1,500 mg in 500 mL NaCl IVPB Premix 1,500 mg 333.33 mL/hr 11/06/22 1818 $ New Bag/Syringe vancomycin (Vancocin) 1,500 mg in 500 mL NaCl IVPB Premix 1,500 mg 333.33 mL/hr 11/06/22 1002 $ New Bag/Syringe vancomycin (Vancocin) 1,500 mg in 500 mL NaCl IVPB Premix 1,500 mg 333.33 mL/hr 11/06/22 0234 $ New Bag/Syringe vancomycin (Vancocin) 1,500 mg in 500 mL NaCl IVPB Premix 1,500 mg 333.33 mL/hr 11/05/22 1841 $ New Bag/Syringe vancomycin (Vancocin) 1,500 mg in 500 mL NaCl IVPB Premix 1,500 mg 333.33 mL/hr * Jerry Leigh, JOSETTE - 11/08/2022 3:51 PM CDT [facility] Physical Medicine and Rehabilitation Swallow Treatment Patient: Consuelo Darby Med Record Number: [id number] Date of : 1980 Age: [age] year old PPE: PPE worn by staff: gloves;mask - surgical PPE worn by patient: gown - patient, clean;socks - clean Impressions: Patient's swallow function and communication were assessed at bedside. Patient completed trial of ice chips and thin liquids. Patient demonstrated moderately delayed swallow initiation with ice chip trials. When attempting thin liquids via spoon, patient demonstrated immediate cough. ST recommends continuing with NPO and TFs via PEG at this time. Patient continues to answer Y/N questions via thumbs up and, at times with her index finger. ST will follow patient to assess safety ofswallow function and communication while in hospital. Recommendations: Diet Liquids Recommendation: NPO Diet Solids Recommendation: NPO Recommended Form of Meds: Feeding Tube Recommended Tests/Consults: Recommendations: Dysphagia Treatment Discharge Recommendations: Speech therapy is recommended to improve swallow function. SUBJECTIVE: Patient Goals: No goals at this time Pain Assessment: No pain reported or observed at this time OBJECTIVE: Level of Consciousness: alert Orientation Level: oriented to person Positioning: Upright in bed Respiratory Status: room air Swallow Trials: Ice chips: Presentation: Spoon-Assisted Oral: Increased Anterior to Posterior Transit;Delayed Initiation;Impaired Mastication Pharyngeal: Delayed Swallow;Decreased Laryngeal Elevation Assessment: Risk For Aspiration: Severe Primary Diagnostic Impression - Oral: Severe Primary Diagnostic Impression - Pharyngeal: Severe Treatment/Education/Interventions: While performing SIGNALING PROJECT ENGINEER, Patient and sister was instructed in: goals of treatment , diet/liquid recommendations, swallowing strategies/aspiration precautions, clinical signs of aspiration and recommendations for NPO status given patient's elevated aspiration risk. Patient demonstrated Good understanding of instructions given. Physician and Nurse contacted regarding results of treatment session. INFORMED CONSENT TO TREATMENT: Plan of care including recommended therapy, goals and frequency, discussed with patient who understands and agrees to proceed. Short Term Goals Patient will tolerate recommended food and liquid consistencies without clinical signs of aspiration., Patient will understand clinical signs of aspiration and aspiration precautions., Patient will follow recommended swallowing strategies. Group Home Goal (s): Patient to be independent/baseline with functional mobility and self care and be able to safely discharge to prior level of care. Jerry Valle M.A., [facility]-SIGNALING PROJECT ENGINEER Speech Language Pathologist [phone] * Jose Elias Cuevas RN - 11/08/2022 3:41 PM CDT Problem: ELOPEMENT/ABDUCTION Goal: Risk for elopement &/or abduction during hospitalization is minimized Outcome: Progressing Problem: Skin Integrity Goal: Skin integrity is maintained or improved Outcome: Progressing Problem: Pain/Discomfort Goal: Patient uses pharmacological and non-pharmacological pain management strategies. Outcome: Progressing Goal: Patient verbalizes acceptable level of pain relief and ability to engage in desired activity. 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 Found to have right MCA occulusion. .Interventional neurology was consulted and patient underwent diagnostic??catheter??cerebral??angiogram??and revascularization of right MCA occlusion on 10/19/2022. Hospital stay was complicated by developing cerebral edema for which neurosurgery was consulted and patient was taken to the OR for right decompressive hemicraniectomy on 10/20/2022. As part of embolic/ischemic strokework up, patient also underwent SARAH and showed vegetation on aortic side of??left??coronary cusp, negative bubble study, no thrombus in left atrial appendage. 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 Bartonella PCR negative in blood. Patient also underwent to throbectomy on 10/30.Patient started having a high grade fever on 11/03 so ID is re-consulted.??Now on Van, Cefepime and doxy SUBJECTIVE & INTERVAL HISTORY: Patient seen and examined. Fever spike this morning to 100.6 Current Abx Van, Cefepime and doxy Inpatient Medications ??? 0.9% NaCl 10-40 mL Intracatheter q8h ??? 0.9% NaCl 3 mL Intracatheter q8h ??? acetaminophen 650 mg Enteral Tube q6h ??? atorvastatin 80 mg Enteral Tube AT BEDTIME ??? cefepime 2 g Intravenous q8h ??? doxycycline monohydrate 100 mg Enteral Tube q12h ??? enoxaparin 1 mg/kg Subcutaneous q12h ??? guaiFENesin 10 mL Enteral Tube q12h ??? iopamidol Intravenous Contrast - Once ??? lansoprazole 30 mg Enteral Tube QDAY BEFORE BREAKFAST ??? loratadine 10 mg Enteral Tube QDAY ??? metoprolol tartrate IR 25 mg Enteral Tube q12h ??? perflutren lipid microsphere 0.5 mL Intravenous intra-Procedure multiple ??? polyethylene glycol 3350 17 g Enteral Tube QDAY ??? senna-docusate 2 tablet Enteral Tube QDAY ??? tamsulosin 0.4 mg Enteral Tube QDAY ??? verapamil 40 mg Enteral Tube q8h ??? Vitamin D3 (cholecalciferol) 2,000 Units Enteral Tube QDAY ??? warfarin Other QDay 1700 ??? warfarin 6 mg Enteral Tube once warfarin PRN Medications ??? 0.9% NaCl ??? SALINE LOCK, INSERT AND MAINTAIN AND 0.9% NaCl AND 0.9% NaCl ??? bisacodyl ??? diphenhydrAMINE-zinc acetate ??? oxyCODONE (immediate release) OBJECTIVE: Vital Signs: BP 118/64 Pulse 94 Temp (!) 100.6 ??F (38.1 ??C) (Axillary) Resp 18 Ht 1.626 m (5' 4 ) Wt95.3 kg (210 lb) SpO2 96% Temp (24hrs), Av.1 ??F (37.3 ??C), Min:98.2 ??F (36.8 ??C), Max:100.6 ??F (38.1 ??C) I/O: Intake/Output Summary (Last 24 hours) at 11/08/2022 1510 Last data filed at 11/08/2022 0800 Gross per 24 hour Intake 1095 ml Output 3500 ml Net -2405 ml Physical Exam: General:??Alert, cooperative, no distress, obese HEENT: NC, AT, EOMI, MMM, Sutures to head cdi Chest wall:??No tenderness or deformity Lungs: Clear to auscultation bilaterally Heart: RRR, S1, S2 normal, no murmur, click, rub or gallop Abdomen: Soft, non-distended, non-tender, +BS Back:??Symmetric, no curvature. ROM normal. No CVA tenderness Extremities:??Atraumatic, no cyanosis or edema Skin:??Skin color, texture, turgor normal. Neurologic: Alert and oriented x 3, grossly intact Psychiatry: Appropriate mood/affect Lines: LABS CBC: Recent Labs Component Name 11/07/22 2234 11/06/22 2312 11/06/22 0136 10/23/22 0129 10/22/22 0153 WBC 4.7 4.7 6.5 7.9 - - RBC 3.18* 3.20* 3.42* 3.28* - - HGB 9.2* 9.3* 10.0* 9.7* - - HCT 29.5* 29.5* 32.8* 30.2* - - MCV 92.8 92.2 95.9 92.1 - - PLT - - - - 199 - = values in this interval not displayed. BMP: Recent Labs Component Name 11/07/22 2234 11/06/22 2312 11/06/22 0136 10/20/22 0302 10/19/22 0824 06/15/22 0757 NA 141 140 139 - 139 138 CL 108* 108* 111* - 108* 107 CO2 22 22 21* - 21* 23 BUN 8 8 8 - 13 12 CREATININE 0.53* 0.46* 0.56 - 0.84 0.74 ALB - - - - 3.5 3.6 PROT - - - - 7.7 7.5 - = values in this interval not displayed. estimated creatinine clearance is 157.9 mL/min (A) (by C-G formula based on SCr of 0.53 mg/dL (L)). Recent Labs Component Name 10/19/22 0824 06/15/227 12/09/18 0812 ALT 16 9 17 AST 19 17 18 ALKPHOS 52 44 56 TBILI 0.1* 0.1* - Bartonella PCR negative Mycoplasma IGM and IGG negative Chlamydia IGM/IGG negative Q fever IGG,IGM negative Bartonella IGG,IGM negative MICROBIOLOGY: Urine and blood cx with no growth HISTOPATHOLOGY: None at this admission IMAGING & PROCEDURE: Pertinent images independently reviewed; report in chart. 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 Patient was started on vancomycin and ceftriaxone and doxycycline per the previous ID consult and planned to complete4 weeks. Ceftriaxone transitioned to cefepime for fevers. ?? 1.) Aortic vegetations, possible cx negative endocarditis 2.) Fevers - re consulted for fevers - UA, urine cx neg, cxr negative, blood cx negative - CT PE negative Plan/ Recommendations: Continue cefepime 2 gm q 8hrs, continue vancomycin for two more weeks (end date 11/22) doxycycline for total of four weeks (start date 11/05- 12/03) If patient continues to have fevers further infectious work with MRI brain w/ and w/o contrast Follow CBC with diff,??BMP ??weekly (at minimum) while on IV antibiotics ?? Alhaji Otoole M.D. Infectious Diseases ?? Associated attestation - Angelica Cruz MD - 11/09/2022 6:55 AM CDT [facility] Infectious Diseases Attending Note Documentation Date/Time: 11/08/2022, 10:14 PM The patient was seen and evaluated with Internal Medicine resident Alhaji Otoole M.D. I agree with the findings as described in the note, including the history, interval changes, ROS, examination, objective data interpretation, impression and plan as documented, though specifically I note the following: Assessment: 41 year old female with PMH of HTN, migraine, GERD, presented on 10/19/2022 as code stroke due to acute onset left sided weakness, left sided sensory deficits, and dysarthria. Found to have right MCAocculusion. On empirical culture negative infective endocarditis treatment. Called back for new fever. New fever without leukocytosis: BCx and UCx NG; no diarrhea, no signs of pneumonia, no CVC line. Given fever persistent, obtain MRI Brain to r/o intra-cranial infction. And obtain CT A/P for source work up. 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 DDx: IE, vs Libman-Sacks endocarditis, vs fibroelastoma, vs rheumatic valvular disease (less likely), vs Lambl excrescence (less likely). CT C/A/P w contrast 10/25 for possible source/disseminated infection work up, largely unrevealed. Serology testing for Coxiella, Bartonella, Mycoplasma and Chlamydia for possible culture negative endocarditis, all negative. Empiric antibiotics started 10/25 to cover at least Staphylococcus and Streptococcus, and atypical bacterial infection. On IV vancomycin and ceftriaxone, but doxycycline never started. Spiked fever 11/04, ceftriaxone ->cefepime, and added on doxycycline 11/05, will keep the plan for 4 weeks treatment. Cardio-embolic/ischemic stroke: Unusual presentation for this 41-year-old patient with no significant risk factors for CVA. DDx hypercoagulable state, autoimmune disorder, etc. S/p 10/19 with IR underwent diagnostic catheter cerebral angiogram and revascularization of right MCA occlusion. S/p 10/20 with neurosurgery for R sided [id number] decompressive sonya-craniectomy for treatment of refractory intracranial hypertension. S/p PEG. Renal function: Estimated Creatinine Clearance: 186 mL/min (A) (by C-G formula based on SCr of 0.45mg/dL (L)). Plan/Recommendations: - Continue IV vancomycin, cefepime and doxycycline - As fever persistent, please obtain MRI Brain wwo contrast, and obtain CT A/P w contrast for source work up. - Obtain LFT. Thank you for allowing us to participate in the care of this patient. Infectious Diseases will continue to follow along, please call with questions or concerns. Angelica Cruz MD Infectious Diseases Attending * Maru Mcduffie RN - 11/08/2022 2:49 PM CDT Care Coordination Progress Note Anticipated level of care at discharge: Acute Rehab Facility: Anticipated level of care provider: None: Anticipated Discharge Date: 11/10/22: Discharge Plan: [facility] once medically ready. Pt febrile and being evaluated. ID following. Pending heparin gtt + warfarin bridge Orientation Level: Oriented to Person;Oriented to Place: Family Support (Name and Phone): Extended Emergency Contact Information Primary Emergency Contact: MehnazHi Address: [address] [place] [address] [place] [address] [facility] Relation: Spouse Secondary Emergency Contact: Sandra Disla [facility] Mobile Relation: Mother Transportation at Discharge: Ambulance: READMISSION RISK SCORE is 16 at 2:49 PM 11/08/2022.: Name: Maru Mcduffie RN [phone] * Rosa Vegas, PT - 11/08/2022 2:06 PM CDT [facility] Physical Medicine and Rehabilitation Physical Therapy Progress Note Patient: Consuelo Darby Med Record Number: [id number] Date of : 1980 Age: [age] year old PPE worn by staff: gloves;mask - procedural PPE worn by patient: gown - patient, clean;socks - clean Tech: Hceli Recommendations: PT Discharge Recommendations: Patient would benefit from intensive 3-hour multidisciplinary therapy This recommendation is made due to ongoing intensive PT functional needs: patient demonstrates a significant functional decline and would benefit from skilled therapy intervention to restore function;patient has the need for more than one skilled therapy service SUBJECTIVE: Subjective: Patient is nonverbal, agrees to PT treatment by giving a 'thumbs up'. Patient with 2 family members present and providing positive encouragement throughout session Pain Assessment: Pain Location #1 Pain Scale/Observation: Behaviors Behaviors/Assumed Pain Present : Calm PRECAUTIONS: Weight Bearing Status: (no restrictions) Activity Level: Up ad bigg Other Precautions: Fall, Helmet OBJECTIVE: At start of therapy session, patient found in bed and with no alarm General Appearance: Adult female, in NAD; helmet donned for upright activity LDAs: IV's:??Peripheral line, Catheter, and PEG Tube Vitals: (*Assess the levels of oxygen saturations both for room air and 02 unless rest on room air is 88% or less). Post Activity BP: 122/81 HR: 97 Sp02 96% Room Air Mental Status/Cognition: Level of Consciousness-Adult: Alert Orientation Level: Oriented to Person;Oriented to Place Cognition: Follows one step commands;Attention/concentration-decreased;Processing-delayed;Judgement- decreased;Safety awareness-decreased;Impulsive Mobility: A gait belt and non-slip socks were used for all out of bed activity this date. Bed Mobility: Rolling: Moderate Assistance to Left;Maximal Assistance to Right Supine to Sit: Maximum Assistance;X 2;Requires Verbal Cues for Safety;Requires Verbal Cues for Technique (patient uses RUE and RLE to assist) with HOB in semi- fowlers position Sit to Supine: Maximum Assistance;X 2 (patient able to raise RLE up onto bed independently) Transfers: Sit to Stand: Maximum Assistance;X 2 (with RUE assist and bilateral knee block in Sera Steady) Stand to Sit: Maximum Assistance;X 2 Balance: Sitting - Static: Fair -;With One Upper Extremity Support Sitting - Dynamic: Poor +;With One Upper Extremity Support Standing - Static: Poor +;With One Upper Extremity Support (and bilateral knee block in Sera Steady) Standing - Dynamic: Not tested ACTIVITY TOLERANCE: Patient's activity tolerance: fair. TREATMENT/INTERVENTIONS: bed mobility training, transfer training, sitting and standing balance activities, and monitoring of vitals Modified [place]: Current Modified [place] Score: 5 AM-PAC 6 Clicks Mobility Raw Score:: 8 EDUCATION: While performing PT, Patient was instructed in: functional mobility training, weight bearing status, safety awareness/fall precautions, discharge planning, use of call light ?? Presented to patient who demonstrates Fair understanding of instructions given. ? ASSESSMENT: Patient would benefit from additional Physical Therapy sessions to achieve the following functionalgoals to enhance independence. ?? Short Term Goals: Goal Formation?Patient unable to participate in goal formulation Patient will perform bed mobility??with moderate assist Patient will transfer bed to/from chair??with maximal assist Patient will sit EOB x10 minutes with minimal assist ?? Environmental Marketer Goal(s): Patient to discharge to appropriate next level of inpatient care. ?? INFORMED CONSENT TO TREATMENT: Plan of care including recommended therapy, goals and frequency, discussed with patient who demonstrates understanding and agrees to proceed. ?? Equipment Issued: none ? Plan: Patient continues to benefit from skilled therapy services. If patient is discharged from the facility, this note serves as a discharge summary if further physical therapy visits did not occur. Refer to filed flowsheet for further details. Following therapy session, patient left in bed, with call light within reach, with family in room, with therapy cues visible on white board. * Shania Jha, PharmD - 11/08/2022 12:49 PM CDT ACTIVE CONSULTS TO PHARMACY/DISEASE STATE MONITORING Pharmacy Consult: Warfarin Management ASSESSMENT/PLAN Warfarin Indication for anticoagulation: ischemic stroke due to septic emboli Warfarin schedule prior to this encounter: New start Warfarin Dose History Date INR Dose (mg) Comments 11/03 1.2 5 mg New start with heparin bridge 11/04 1.1 5 mg 11/05 1.3 5 mg 11/06 1.4 5 mg 11/07 1.6 5 mg Changed to therapeutic enoxaparin bridge Goal INR: 2.0 - 3.0 Today's INR: Subtherapeutic at 1.6 (remained the same as yesterday's INR) Pertinent medications during hospitalization: lansoprazole, cefepime, and doxycycline may increase warfarin concentrations Plan: 1. Warfarin dose: 6 mg X 1 -- will increase dose slowly due to patient having had a large stroke 2. Daily INR 3. Bridging therapy with enoxaparin 100 mg Q 12 hours 4. Warfarin education completed on 11/06. Subjective/Objective Consuelo Darby is a 42 year old female. The primary encounter diagnosis was Right middle cerebralartery stroke (CMS/HCC). Diagnoses of Weakness, Gaze palsy, Hemianopsia, Left-sided sensory deficitpresent, Dysarthria, At high risk for bleeding after thrombolytic therapy, Acute cerebrovascular accident (CVA) due to embolism of right middle cerebral artery (CMS/HCC), Nihss score 9, Aortic valve vegetation, Occlusion of external iliac artery (CMS/HCC), Cold extremity without peripheral vasculardisease, Acute lower limb ischemia, Leukocytosis, unspecified type, Received intravenous tissue plasminogen activator (tPA) in emergency department, Hypoxia, Ischemia, Primary hypertension, Iliac artery occlusion, right (CMS/HCC), Presence of externally removable percutaneous endoscopic gastrostomy(PEG) tube (CMS/HCC), and Fever, unspecified fever cause were also pertinent to this visit. Height: 5' 4 (162.6 cm) Wt 95.3 kg (210 lb) Body mass index is 36.05 kg/m??. Serum creatinine: 0.53 mg/dL (L) 11/07/222233 Estimated creatinine clearance: 157.9 mL/min (A) * Shania Troy, OT - 11/08/2022 11:32 AM CDT [facility] Physical Medicine and Rehabilitation Occupational Therapy Progress Note Patient: Consuelo Darby Med Record Number: [id number] Date of : 1980 Age: [age] year old PPE worn by staff: gloves;mask - surgical services coordinator: Cheli Recommendations: Discharge OT Discharge Recommendations: Patient would benefit from intensive 3-hour multidisciplinary therapy This recommendation is made due to ongoing intensive OT functional needs: not at baseline due to impaired ability to complete ADL's;functional mobility is significantly below baseline;patient demonstrates a significant functional decline and would benefit from skilled therapy intervention to restore function;patient has the ability to progress and demonstrate measurable gains as a result of skilled therapy Recommended Transportation Method: Stretcher/Ambulance Nurse and Physical Therapy contacted regarding patient status and/or discharge plan. Activity Level: up ad bigg PRECAUTIONS: Falls, skin, helmet, SBP <160 SUBJECTIVE: Subjective: Pt giving thumbs up/down and nodding head to communicate yes/no. Pain Assessment: Pain Location #1 Pain Scale/Observation: Numeric (0-10) Pain Rating Score #1: 0 (pt holding up a 0 with R hand indicating no pain) Sedation Level #1: 1-Awake and alert Pain Location : Abdomen Pain Intervention(s): (RN present to administer pain medication during session) OBJECTIVE: At start of therapy session, patient found in bed General Appearance: Pt in bed upon arrival in [facility], MIL present in room during session. LDA: PIV, PEG, puentes catheter Mental Status/Cognition: Level of Consciousness-Adult: Alert Orientation Level: Oriented to Person;Oriented to Place Cognition: Follows one step commands;Attention/concentration-decreased;Processing-delayed;Judgement- decreased;Safety awareness-decreased;Impulsive Pt observed with slight L great toe movement on command 2x. Mobility: a gait belt and non-slip socks were used for all out of bed activity this date. Bed Mobility: Rolling: Moderate Assistance to Left Supine to Sit: Maximum Assistance;X 2;Requires Verbal Cues for Safety;Requires Verbal Cues for Technique (pt mobilizing RLE towards EOB and reaching with RUE) Sit to Supine: Maximum Assistance;X 2;Requires Verbal Cues for Safety;Requires Verbal Cues for Technique Transfers: Sit to Stand: Maximum Assistance;X 2;Requires Verbal Cues for Safety;Requires Physical Cues for Safety;Requires Verbal Cues for Technique;Requires Physical Cues for Technique Stand to Sit: Maximum Assistance;X 2;Requires Verbal Cues for Safety;Requires Physical Cues for Safety;Requires Verbal Cues for Technique;Requires Physical Cues for Technique Transfer Device: Gait belt (bilateral handheld assist) Pt requires two attempts to perform sit<>stand with max A x2 and bilateral handheld assist, pt able to maintain static standing for ~10 seconds. Balance: Max A for static sitting EOB. Pt with postural sway and difficulty self-correcting to midline when posterior support is briefly taken away. Pt UE seeking at EOB - reaching for bed rail, pillow, blankets. Activities of Daily Living: Oral Facial Hygiene: Moderate Assistance (to perform oral suctioning with R hand) Toileting: Total Assistance (via puentes catheter) ACTIVITY TOLERANCE: Patient's activity tolerance: fair Splint Issued/Checked: L resting hand and L foot drop. Resting hand splint doffed upon arrival, night wear only. L foot drop splint fitting appropriately, skin integrity intact. Modified [place]: Current Modified [place] Score: 5 AM-PAC 6 Clicks Daily Activity Raw Score:: 10 TREATMENT/INTERVENTIONS: ADL training Cognitive retraining Functional transfer training Endurance training Bed mobility Energy conservation Safety awareness EDUCATION: While performing OT, Patient was instructed in:functional mobility training, self-care training, cognitive retraining, energy conservation, safety awareness/fall precautions , use of call light Presented to patient who demonstrates Questionable understanding of instructions given. INFORMED CONSENT TO TREATMENT: Plan of care is discussed but patient with questionable understanding. ASSESSMENT: Patient continues to benefit from skilled Occupational Therapy to achieve the following functional goals. Short Term Goals: Goal Formation With patient/family Patient will increase orientation to?person, place, time and situation Patient will perform supine to/from sit??with moderate assist and X 2 Patient will tolerate treatment??20 minutes, with good endurance and with minimal pain Environmental Marketer Goal(s): Patient to discharge to appropriate next level of inpatient care Plan: Patient continues to benefit from skilled therapy services., Continue with goals as established. If patient is discharged from the facility, this note serves as a discharge summary if further occupational therapy visits did not occur. Refer to filed flowsheet for further details. Following therapy session, patient left in bed, with bed alarm on , with call light within reach, with family in room, with Jose Elias BOGGS aware, with therapy cues visible on white board. * Karishma Ojeda MD - 11/08/2022 7:35 AM CDT Stroke Service Daily Progress Note Consuelo Darby Age: [age] year old Date of : 1980 Date of Admission: 10/19/2022 Hospital Day: 20 Subjective Consuelo Darby is a 41yo woman hemiplegic migraine,??GERD, GENESIS. who developed acute onset L sided weakness, L-sided sensory deficits, and dysarthria. L sided weakness resolved in route and dysarthriaimproved in route. On arrival patient noted to hae Amy gaze plasy, L hemainopsia, mild dysarthria, and extinction. NIHSS: 7. S/p TNK and ??TICI2b revascularization of the R MCA M1 occlusion.Repeat CTH showing edema in R MCA territory. On 10/20/22 patient taken for hemicraniectomy, post-op CTH showing stable midline shift. Initial hypercoag work up negative, repeat in 2 months. ?? -10/23- SARAH concerning for aortic cusp vegetations. [...] by GI team while evaluating her for G tube 11/01 CT A/P obtained and no abscess was identified in the abdominal area. Postsurgical changes after vascular surgery. 11/02 GI to take her to OR for G tube. Ready TTF. 11/03 start warfarin bridge 11/04 CT head for headache and eye discomfort after bumping her head on hemicrani site. NSGY aware and evaluated her. CT looks stable. 11/05 had a fever. Infectious workup initiated and ID reconsulted. Plan to broaden spectrum (currently on ceftriaxone + vanc, switch to cefe + vanc + doxycycline ) after blood cultures are taken 11/06: no acute event. On heparin gtt. Warfarin bridge. INR 1.4. ?? Interval History: no acute event. On heparin gtt. Lovenox-warfarin bridge. INR 1.6. Interval History: Patient had no acute events occur overnight. Objective Patient Vitals for the past 24 hrs: BP Temp Temp src Pulse Resp SpO2 11/08/22 0650 143/80 -- -- 109 -- -- 11/08/22 0430 139/70 98.9 ??F (37.2 ??C) Oral 103 -- 99 % 11/08/22 0051 147/73 98.8 ??F (37.1 ??C) Oral 102 -- 97 % 11/07/22 2001 119/57 98.2 ??F (36.8 ??C) -- 104 18 96 % 11/07/22 1201 163/89 98.7 ??F (37.1 ??C) Oral 88 18 100 % 11/07/22 1000 135/74 -- -- 97 -- -- 11/07/22 0801 135/74 (!) 100.5 ??F (38.1 ??C) Axillary 97 18 97 % Intake/Output Summary (Last 24 hours) at 11/08/2022 0735 Last data filed at 11/08/2022 0709 Gross per 24 hour Intake 1175 ml Output 4800 ml Net -3625 ml Exam: Cortical Function Mental Status Awake, alert, follows basic commands Orientation REYNOLD Language No verbal output Visual Powell Intact bilaterally to confrontation Neglect No visual neglect noted, no tactile neglect noted ?? Cranial Nerves II Pupils 3 mm and bilaterally reactive to light. Fundoscopic exam not performed. VIII Hearing is intact bilaterally to voice. III/IV/ Extraocular muscles intact. No diplopia, ptosis, nystagmus or convergence abnormalities noted. IX/X REYNOLD V REYNOLD XI Head turning and shoulder shrug are intact. VII L facial palsy XII Tongue is midline with normal movements and no atrophy noted. ?? Motor Function Movement No abnormalities noted Bulk No abnormalities noted Tone No abnormalities noted ?? Moves RUE and RLE, tries to withdraw to pain in LUE and LLE ?? Sensory Light Touch REYNOLD Noxious Stimuli Symmetric and intact bilaterally ?? Labs: Recent Labs Component Name 11/07/22 2065 11/06/22 2312 11/06/22 0136 10/23/22 0129 10/22/22 0153 WBC 4.7 4.7 6.5 7.9 - - RBC 3.18* 3.20* 3.42* 3.28* - - HGB 9.2* 9.3* 10.0* 9.7* - - HCT 29.5* 29.5* 32.8* 30.2* - - PLT - - - - 199 - = values in this interval not displayed. Recent Labs Component Name 11/07/22223311/06/22231111/06/22 013 NA 141 140 139 CL 108* 108* 111* CO2 22 22 21* BUN 8 8 8 CREATININE 0.53* 0.46* 0.56 CALCIUM 8.6 8.5 8.3* No results for input(s): MG in the last 12422 hours. Recent Labs Component Name 11/07/22223311/06/22231111/06/22135 PHOS 4.3 4.3 3.6 Recent Labs Component Name 11/08/22 0254 11/07/22 0305 11/06/22231111/06/22 1830 11/06/22 0740 11/06/22 013 PT 18.3* 18.4* - - - 17.1* INR 1.6 1.6 - - - 1.4 PTT - - 63.4* 68.6* 97.1* 100.4* No results for input(s): A1C in the last 52269 hours. Recent Labs Component Name 10/20/22 0302 06/15/22 0757 CHOL 173 204* HDL 42 37* LDLCALC 91 117* TRIG 201* 251* Recent Labs Component Name 11/06/22 0136 TSH 1.682 No results for input(s): CKMB, CKTOTAL, CKMB, TROPONINI, BNP in the last [address] ANGIO CHEST PULM EMBOLISM Result Date: 11/07/2022 PROCEDURE: CT ANGIO CHEST PULM EMBOLISM, DATE/TIME OF EXAM: 11/07/2022 5:25 PM, LOCATION [facility] INDICATION: R50.9: Fever, unspecified fever cause ADDITIONAL CLINICAL INFORMATION:Ordering Provider Reason For Exam: PE, fever COMPARISON: CT chest abdomen pelvis with contrast dated 10/25/2022. TECHNIQUE: CT of the chest was performed following the uneventful administration of 100mL of Isovue 370 intravenous contrast according to [...] suspicious pulmonary nodules are identified. No pleural fluidor pneumothorax is present. Heart and Pericardium: The cardiac chambers are normal in size. No pericardial fluid or thickening is present. There is no radiographic evidence of right heart strain. Mediastinum and Isabel: No enlarged lymph nodes are present. Bones and Chest Wall: Bone windows demonstrate no suspicious lytic or blastic lesions. The visible osseous structures are intact. Upper Abdomen:The visible portions of the upper abdominal organs are normal. Impression: 1.No evidence of acute pulmonary embolism. There is no radiographic evidence of right heart strain. 2.No other acute process within the chest. > Dictated by Tim Major MD (resident services coordinator). I, Alexx Lopez have personally reviewed and interpreted this examination/study. > Interpreting Provider: Alexx Lopez on 11/07/2022 10:30 PM ECHO COMPLETE Result Date: 11/07/2022 ??? Left??Ventricle: Left ventricle size is normal. EDV Index BP is 55.3 mL/m2. ESV Index BP is 18.3 mL/m2. Normal wall thickness. LVPWd is 1.01 cm. Ventricular mass is normal. Mass index 2D is 61.25g/m2. Normal systolic function with a visually estimated EF of 65 - 70%. EF by 2D Abarca biplane is 67%. Normal wall motion. Normal diastolic function. Normal mean left atrial pressure. Tissue Doppler velocity is reduced. MV peak E velocity is 102.695 cm/s. MV e' lateral velocity is 14.141 cm/s. MV e' septal velocity is 10.702 cm/s. ??? Right ventricle size is normal. Normal free wall thickness.RV wall thickness is 0.5 cm. Normal wall [...] mmHg). IVC is normal in size. SVC wasnot assessed. ??? Estimated sPAP is 23.0 mmHg. Estimated RVSP is 23.0 mmHg. RAP is 3.0 mmHg. Mean PA pressure of 15 mmHg. PVR < 1.5 Wood units. ? ? Normal valve morphology nd function. ? ? No pericardial effusion. ??? Normal sized annulus, sinus of Valsalva (aortic root), ascending aorta, aorticarch, descending aorta and abdominal aorta. Normal echocardiogram by 2D, m-mode, color and spectralDoppler echocardiography. IR INTRACRANIAL MECH THROMBECT Result Date: 11/07/2022 PROCEDURE: IR INTRACRANIAL MECH THROMBECT DATE/TIME OF EXAM: 10/19/2022 10:41 AM Procedure: CerebralAngiogram and Mechanical Thrombectomy for Acute Stroke Comparison Study: History: 41 year oldwith GERD, tobacco, p/w left sided neglect both sensory and visual, LWK 6:30, s/p TNK. CTA 1 M1 occlusion.Will take to IR for a mechanical thrombectomy. Notification Time: 8:21 NIHSS Score: 6 ASPECTS: 9 In-room: 8:48 Puncture Time: 8:53 Location of Clot: R M1 MCA Initial TICI: 0 Time to Clot: 9:37 Time to Reperfusion: 9:54 Final TICI: 2b Pit Slagman: Dr. Mitali Walter Meteorologist In Charge(s): Isak Monte Vessels: Ultrasound Guided Access of Femoral Artery Ultrasound Guided Access of Radial Artery Arterial line placement in the right radial artery Right Common Carotid Artery Angiogram: Cerebral Intracranial Catheterization Mechanical Thrombectomy with Retrievable Stent and Reperfusion Catheter Angiography Through the Existing Catheter Right Femoral Artery Angiogram Anesthesia: General Anesthesia was performed and monitored by an attending Anesthesiologist and their technical services assistant throughout the entirety of the case Procedural Detail: The risks, benefits, and alternatives to procedure were discussed in detail with the patient and her family. These included but were not limited to the risk of blood loss, vessel injury, stroke, renal injury, and contrast allergy. The patient was brought to the biplane a ngiography suite where she underwent prep and drape procedures. Limited ultrasound of the right radial artery demonstrated a patent vessel. A 5 new zealander sheath was placed in the radial artery and was used as an arterial line. Limited ultrasound of the common femoral artery demonstrated a patent vessel. The take off of the profunda and other arteries were identified. A scott scale image was documented. The right common femoral artery was accessed using a micropuncture needle. The needle entry was documented. Following a series of exchanges, a 8 Russian sheath sheath was placed in the right femoralartery. A Guide and a 6 Russian [employer] Technologiesumbra Select Serrano 2 catheter along with a stiff 0.035 Glidwirewas navigated into the aortic arch. The catheter was used to select brachiocephalic artery followedby the right common carotid artery and finally [...] then removed from the arterial system. After 5min were allowed to elapse for maximal [...] system. Hemostasis was achieved using a 8 Russian Angio-Seal closure device. Hemostasis was immediate at [...] revascularization on the MCA territory was visualized. Impression: 1. TICI2b revascularization of the R MCA M1 occlusion. Location of Clot: Right M1 segment Initial TICI: 0 Final TICI: 2b I, Dr. Jim Walter, was present and performed/supervised theentire procedure. Jim Ornelas MD have personally reviewed and interpreted this examination/study. > Interpreting Provider: Jim Walter MD on 11/07/2022 9:21 AM XR ABDOMEN KUB PORTABLE Result Date: 11/06/2022 PROCEDURE: XR ABDOMEN KUB PORTABLE, DATE/TIME OF EXAM: 11/05/2022 5:28 PM, LOCATION [facility] INDICATION: R50.9: Fever, unspecified fever cause ADDITIONAL CLINICAL INFORMATION: Ordering Provider Reason For Exam: constipation Technologist Note: Additional: COMPARISON: 10/28/2022 KUBFINDINGS: PEG tube overlying left upper quadrant. Interval removal of enteric tube. There is no dilatation of small or large bowel. No pneumoperitoneum or pathological calcification is seen. The visible osseous structures are intact. The lung bases are clear. IMPRESSION: Non-obstructive bowel gas pattern. Report dictated by Mc Castro MD, (resident services coordinator). Pepe Ornelas MD have personally reviewed and interpreted this examination/study. > Interpreting Provider: Pepe Gonzalez MD on 11/06/2022 10:[address] HEAD WO CONTRAST Result Date: 11/05/2022 PROCEDURE: CT HEAD WO CONTRAST DATE/TIME OF EXAM: 11/05/2022 12:11 AM CLINICAL INFORMATION: None relevant/not provided if blank. 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 CT dose reduction technique was used, including Automated Exposure Control. FINDINGS: Redemonstration of postsurgical changes from decompressive right frontal parietotemporal craniectomy. Unchanged herniation of the right frontoparietal and temporal lobes through the craniectomydefect. Unchanged evolving large right MCA territory infarction involving the right frontal parietal and temporal lobes. 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 No significant midline shift. Unchanged ex vacuo dilation of the right lateral ventricle. There is interval increase in cortical hyperdensity involving the right parietal, frontal lobes (image 11, 12, 14, series 3). Extra-axial fluid collection overlying the herniated right cerebral convexity measuring 1.5 cm in thickness, not significantly changed compared to prior study. No interval change in the scott- white matter differentiation. No significant opacification of the mastoid or paranasal sinuses. No acute soft tissue findings or calvarial findings. IMPRESSION: 1. Redemonstration of post surgical changes from decompressive hemicraniectomy and evolving large right MCA territory subacute infarct. Interval increased linear hyperdense foci along thecortex of right frontal and parietal lobes could be secondary to evolving cortical laminar necrosisversus developing petechial hemorrhages. Continued attention recommended on short-term follow-up. However no hematoma noted. No evidence of midline shift. These findings were discussed with patient'scare provider, Dr. Roth with neurology, by on 11/05/2022 5:46 PM with read back verification. > Interpreting Provider: Oriana Suarez MD on 11/05/2022 5:48 PM XR CHEST 1VW PORTABLE Result Date: 11/05/2022 PROCEDURE: XR CHEST 1VW PORTABLE, DATE/TIME OF EXAM: 11/05/2022 9:38 AM, LOCATION [facility] INDICATION: R50.9: Fever, unspecified fever cause ADDITIONAL CLINICAL INFORMATION: Ordering Provider Reason For Exam: consolidation COMPARISON: Chest radiograph 10/29/2022. FINDINGS/IMPRESSION: Previously seen feeding tube has been removed. These no confluent consolidation, pleural effusion, or pneumothorax is noted. The cardiomediastinal silhouette is stable. No acute osseous abnormality is noted. Report dictated by Christopher Tobin MD, (resident services coordinator). I, HEATHER FREGOSO MD have personally reviewed and interpreted this examination/study. > Interpreting Provider: HEATHER FREGOSO MD on 11/05/2022 2:[address] ABDOMEN WO CONTRAST Result Date: 11/02/2022 PROCEDURE: CT ABDOMEN WO CONTRAST, DATE/TIME OF EXAM: 2022 6:47 PM, LOCATION [facility] INDICATION: Z93.1: Presence of externally removable percutaneous endoscopic gastrostomy (PEG) tube (CMS/HCC) ADDITIONAL CLINICAL INFORMATION: Ordering Provider Reason For Exam: diffcult percutaneous PEG tube placement, rule out complications COMPARISON: CT abdomen pelvis with contrast dated 10/31/2022 TECHNIQUE: CT of the chest, abdomen, and pelvis was performed without contrast according to standard protocol. Findings: Evaluation of visceral and vascular structures is degraded due tolack of intravenous contrast administration. Lines/tubes: *Interval placement of a percutaneous trudi rostomy tube with intraluminal placement of tip and [...] Bone windows demonstrate no suspicious lytic or blasticlesions. The visible osseous structures are intact. Soft tissues: Normal. Impression: Interval placement of a percutaneous gastrostomy tube with intraluminal placement of tip and inflated balloon within the body/antrum of the stomach without complication, as clinically queried.. > Dictated by Tim Major MD (resident services coordinator). I, Pepe Gonzalez MD have personallyreviewed and interpreted this examination/study. > Interpreting Provider: Pepe Gonzalez MD on 11/02/2022 1:[address] ABDOMEN PELVIS W CONTRAST Result Date: 10/31/2022 PROCEDURE: CT ABDOMEN PELVIS W CONTRAST, DATE/TIME OF EXAM: 10/31/2022 10:16 AM, LOCATION [facility] INDICATION: I33.0: Aortic valve vegetation ADDITIONAL CLINICAL INFORMATION: Ordering Provider Reason For Exam: abscess? Technologist Note: Additional: COMPARISON: CT chest abdomen and pelvis 10/25/2022. TECHNIQUE: CT of the abdomen and pelvis was performed following the uneventful administration of 100 mL of Isovue 370 intravenous contrast according to standard protocol. Findings: Lower Chest: Bibasilar subsegmental atelectasis present. Liver: Normal. Gallbladder and Bile Ducts: The gallbladder is absent. Spleen: Normal. Pancreas: Normal. Adrenals: Normal. Kidneys: Normal. Bladder: A Puentes catheter terminates within a decompressed urinary bladder. Gastrointestinal: Enteric tube terminates in the stomach. Duodenal diverticulum present. The stomach and visualized loops of large and small bowel are otherwise unremarkable. Normal appendix. Mesentery/Peritoneum/Retroperitoneum: Normal. Reproductive Organs: The uterus is normal. Vasculature: There is been interval postsurgical changes to the right common femoral/external iliac artery region with previously seen thrombus in this region no longer visualized. There is however irregularity of the distal right external iliacand proximal right common femoral artery and mild narrowing in this region likely resenting postsurgical changes. Questionable flap in the proximal common femoral artery (series 3 image 153). Bones: Bone windows demonstrate no suspicious lytic or blastic lesions. The visible osseous structures are intact. Soft tissues: There is extensive soft tissue stranding edema and fluid throughout the right groin with multiple foci of subcutaneous gas along likely represent post surgical changes. Although there is focal fluid was prominent at series 3, image 153 in this region no rim- enhancing drainable fluid collections are appreciated at this time. Impression: 1.Interval postsurgical changes to the distal right external iliac/proximal right common femoral arteries with previously seen thrombus in this region no longer visualized. There is however irregularity of the artery in this region with mild narrowing which is favored to represent postsurgical changes. Questionable flap within the proximal common femoral artery as detailed above. 2.Extensive soft tissue stranding, edema and fluid along with subcutaneous gas in the right groin likelyrepresenting postsurgical changes. Although there is focal fluid in this region, no rim-enhancing drainable fluid collections are appreciated at this time. > Interpreting Provider: Alexx Lopez on 10/31/2022 11:[address] HEAD WO CONTRAST Result Date: 10/31/2022 EXAM: CT HEAD WO CONTRAST, DATE/TIME OF EXAM: 10/30/2022 8:22 PM, LOCATION: [facility] HISTORY: I63.511: Right middle cerebral artery stroke (CMS/HCC) ADDITIONAL CLINICAL INFORMATION: Ordering Provider Reason For Exam: Heparin supratherapeutic bleed follow up. EXAMINATION: CT scan of the head without intravenous contrast TECHNIQUE: CT of the head was performed without intravenouscontrast according to standard protocol. CT dose reduction technique was used, including Automated Exposure Control. COMPARISON: Head CT 10/28/2022. Brain MRI 10/24/2022. FINDINGS: See impression. IMPRESSION: Compared to prior head CT 10/28/2022: 1.Re-demonstrated postsurgical changes of decompressive right frontoparietotemporal craniectomy with multiple overlying scalp carla. Evolving heterogeneous subdural hematoma along the right frontotemporal convexity measuring up to 8 mm in maximal thickness (5/32), previously measuring up to 9 mm in thickness. 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 Increased conspicuity of a thin hyperdensity along the cortex within this region suggestive of evolving cortical laminar necrosis. 3.Re-demonstrated small hypodensity of the left inferior frontal gyrus/frontal operculum, consistent with an evolving netsulfl-ek-fejssoj infarct. 4.No significant midline shift. Similar-appearing size and configuration of the ventricles without evidence of hydrocephalus. Basal cisterns are patent. 5.No other convincing change. Partially imaged left nasoenteric tube. > Interpreting Provider: Amanda Real MD, PhD on 10/31/2022 1:26 AM [facility] ANGIO TEAM Result Date: 10/30/2022 Fluoroscopy was used for this exam in the OR. Please see the Operative report. XR CHEST 1VW PORTABLE Result Date: 10/29/2022 PROCEDURE: XR CHEST 1VW PORTABLE, DATE/TIME OF EXAM: 10/29/2022 10:29 AM, LOCATION [facility] INDICATION: R09.02: Hypoxia ADDITIONAL CLINICAL INFORMATION: Ordering Provider Reason For Exam: evaluate for hypoxia COMPARISON: Chest x-ray from 10/27/2022 FINDINGS/IMPRESSION: Enteric tube is seen coursing over the diaphragm without visualization of the distal tip. There is no focal consolidation, pleural effusion, or pneumothorax. The cardiomediastinal silhouette is normal. Report dictated by Jacques Russell DO (resident services coordinator). I, Jacques Cole DO have personally reviewedand interpreted this examination/study. 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 Report dictated by Jacques Russell DO (resident services coordinator). Jacques Ornelas DO have personally reviewed and interpreted this examination/study. 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 FINDINGS/IMPRESSION: Enteric tube courses below the diaphragm with the distal tip superimposing the antropyloric region. Report dictated by Martell Shetty MD (resident services coordinator). Jacques Ornelas DO have personally reviewed and interpreted this examination/study. > Interpreting Provider: Jacques Cole DO on 10/28/2022 12:[address] HEAD WO CONTRAST Result Date: 10/28/2022 PROCEDURE: CT HEAD WO CONTRAST, DATE/TIME OF EXAM: 10/28/2022 5:28 AM, LOCATION [facility] INDICATION: Z91.89: At high risk for bleeding after thrombolytic therapy monitor for hemorrhagic bleed given heparin use in massive stroke EXAMINATION: Computed tomography (CT) of the head without contrast TECHNIQUE: CT of the head was performed without contrast according to standard protocol. CT dose reduction technique was used, including Automated Exposure Control. COMPARISON: CT head without contrast dated 10/27/2022 FINDINGS: Redemonstrated are postoperative changes of decompressiveright frontoparietotemporal craniectomy, with multiple overlying scalp carla. Redemonstrated slightly heterogeneous subdural hemorrhage along the right frontotemporal convexity measuring 9 mm in the maximal thickness (series 3 image 17), without significant change compared to prior study. Redemonstrated evolving right MCA infarct. There is moderate mass effect on the right lateral ventricle. There is again associated mild external herniation through the craniectomy site. Unchanged gyriform hyperdensity within the infarcted area which may represent laminar necrosis. Small volume of subarachnoid hemorrhage cannot be completely ruled out. No new acute intracranial hemorrhage. The ventricles are mildly dilated compared to 10/19/2022, otherwise unchanged compared to 10/27/2022. The basal cisterns are patent. No midline shift is seen. Unchanged small focus of hypoattenuation in the left frontal lobe (series 3 image 20) likely represents a small subacute infarct. Partially visualized nasogastric tube. The visualized portions of the orbits, paranasal sinuses, and mastoids appear normal. No acute calvarial fracture is identified. IMPRESSION: 1. Evolving right MCA subacute infarct status post decompressive craniectomy. Grossly unchanged right frontotemporal subdural hemorrhage. Grossly unchanged gyriform hyperdensity in the infarcted area may represent subarachnoid hemorrhage. No midline shift. Unchanged mildly dilated ventricles may represent mild hydrocephalus. 2. Unchanged small focus of hypoattenuation in the left frontal lobe likely represents additional subacute infarct. The report is dictated by Kayla Stevenson MD (resident services coordinator) 1 I, Lonnie Rae MD have personally reviewed and interpreted this examination/study. > Interpreting Provider: Lonnie Rae MD on 10/28/2022 9:15 AM XR CHEST 1VW PORTABLE Result Date: 10/27/2022 PROCEDURE: XR CHEST 1VW PORTABLE, DATE/TIME OF EXAM: 10/27/2022 10:19 AM, LOCATION [facility] INDICATION: D72.829: Leukocytosis, unspecified type ADDITIONAL CLINICAL INFORMATION: Ordering Provider Reason For Exam: any concern for pneumonia COMPARISON: Chest radiograph dated 10/25/2022. FINDINGS/IMPRESSION: Enteric tube courses below the diaphragm and out of the wddys-wt-pbud. RUQ surgical clips are present. No focal consolidation. No pleural effusion or pneumothorax. The cardiomediastinal silhouette is normal. Report dictated by Agnes Olmos DO (resident services coordinator). IPepe MD have personally reviewed and interpreted this examination/study. 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 COMPARISON: 10/26/2022. FINDINGS: Redemonstration of postoperative anisha nges of decompressive right cranioplasty. An evolving extra-axial hematoma is again noted in the craniotomy site. Small volume subarachnoid hemorrhage is is again seen in the right cerebral sulci. Again noted is herniation of the intracranial contents through the craniectomy defect. Again demonstrated is an evolving subacute infarct in the nearly entire right MCA distribution, grossly unchanged. There is persistent mass effect on the lateral ventricle. A small hypoattenuating focus is again noted in the left frontal lobe, which may represent a small subacute infarct. The ventricles are stable. The basal cisterns are patent. No midline shift. The scott-white matter differentiation is normal. The visualized portions of the orbits, paranasal sinuses, and mastoids appear normal. No acute calvarial fracture is identified. IMPRESSION: 1. Redemonstration of evolving right MCA subacute infarct, status post right decompressive craniectomy. The extra-axial hematoma underlying the craniectomy site and subarachnoid hemorrhage in the right cerebral sulci are grossly unchanged. Mass effect on the right lateral ventricle is unchanged. No significant midline shift. 2. Small focus of likely a subacute infarct in the left frontal lobe is unchanged. > Interpreting Provider: Lonnie Rae MD on 10/27/2022 12:10 PM XR CHEST 1VW PORTABLE Result Date: 10/26/2022 PROCEDURE: XR CHEST 1VW PORTABLE, DATE/TIME OF EXAM: 10/25/2022 9:41 AM, LOCATION [facility] INDICATION: I63.511: Right middle cerebral artery stroke ([facility]/HCC) ADDITIONAL CLINICAL INFORMATION: Ordering Provider Reason For Exam: Atlectasis/mucus plugging Comparison: Chest x-ray from10/23/2022, and CT chest, abdomen, pelvis from same day FINDINGS/IMPRESSION: Interval removal of theendotracheal tube. Enteric tube courses below the diaphragm and out of the [id number]-ww-cddf. There is severe left rotation of the patient in this study. There is no focal consolidation, pleural effusion, or pneumothorax. The left upper lobe pulmonary nodule noted on chest CT from same day is not visualized on this plain film. The cardiomediastinal silhouette is normal. The visible bony thorax is intact. Report dictated by Royer Stovall MD (resident services coordinator). I, Alexx Lopez have personally reviewed and interpreted this examination/study. 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 COMPARISON: Comparison ismade with a CT head dated 10/25/2022. FINDINGS: Redemonstration of postoperative changes of right decompressive hemicraniectomy. Redemonstration of large volume confluent acute infarct in the right MCA territory involving the right frontal parietal temporal and insular regions and basal ganglia. Redemonstration of mild herniation of the right frontoparietal and temporal regions through the craniectomy defect. Redemonstration of a curvilinear extra-axial/extracranial fluid collection overlying the right cerebral convexity containing debris and blood products, measuring about 7 mm in thickness not significantly changed compared to prior study. Redemonstration of linear foci of hyperdensity along the evolving infarct most likely secondary to prominent vasculature. No new hyperdense foci within the evolving infarct. No evidence of transtentorial or tonsillar herniation. Station a mass effectfrom the large evolving right MCA territory infarct with effacement of sulci, and effacement of theright lateral ventricle. There is a large area of recent infarction seen in the right hemisphere inthe MCA territory with associated mass effect and some effacement of the right lateral ventricle grossly unchanged from prior. There are foci of hypoattenuation consistent with small evolving subacute to acute infarcts within the left frontal lobe periventricular white matter and left martínez radiata extending up to the left frontal subcortical regions also unchanged compared to prior study. No new intracranial hemorrhage or intra- or extra-axial fluid collections are identified. The left lateral ventricle, third and fourth ventricles are of normal size, shape, and morphology. The basal cisterns are patent. Leftward midline shift is approximately 2 mm as measured at the foramen of Monro, unchanged from yesterday. The visualized portions of the orbits, paranasal sinuses, and mastoids appearnormal. No acute calvarial fracture is identified. Partially visualized nasal tube IMPRESSION: 1. Redemonstration of evolving large right MCA territory acute to subacute infarct without definite evidence of hemorrhagic transformation. Unchanged minimal leftward midline shift of about 2 mm at the level of foramen of Monro and effacement of the left lateral ventricle. 2. Redemonstration of postsurgical changes from right-sided decompressive hemicraniectomy, unchanged compared to prior study. These results were discussed with stroke resident Dr Mendez by Dr. Miranda Bowen at8:05 AM on 10/26/2022 with read back confirmation and closed-loop communication. The report is dictated by Miranda Bowen MD (resident services coordinator) I, Oriana Suarez MD have personally reviewed and interpreted this examination/study. > Interpreting Provider: Oriana Suarez MD on 38:[address] CHEST ABDOMEN PELVIS W CONT Result Date: 10/25/2022 PROCEDURE: CT CHEST ABDOMEN PELVIS W CONT, DATE/TIME OF EXAM: 10/25/2022 12:56 PM, LOCATION [facility] INDICATION: I63.511: Right middle cerebral artery stroke [...] Neck and Axillae: Normal. Lungs: Subsegmental atelectasis ofthe posterior lungs. No pleural fluid or pneumothorax is present. There is a 3 mm nodule in the left upper lobe (image 47 series 5). Heart and Pericardium: The cardiac chambers are normal in size. Nopericardial fluid or thickening is present. Mediastinum and [...] groin. Subcutaneous gas in the lower left anteriorabdominal wall related to subcutaneous injections. Impression: 1.Occlusion [...] verification. > Dictated by Clarisa Cantrell MD (resident services coordinator). I, Alexx Lopez have personally reviewed and interpreted this examination/study. 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 COMPARISON: Comparison is made with brain MR [address] head dated 10/23/2022 FINDINGS: There are postoperative ch anges of right hemicraniectomy. There is soft tissue thickening and skin carla overlying the operative defect. There is curvilinear fluid collection collection overlying the right cerebral convexity within the craniectomy defect containing some recent blood products and which measures approximately 22 mm in maximum thickness. There is a large area of recent infarction in the right cerebral hemisphere in the distribution in the distribution of the right middle cerebral artery. Mass effect is produced by this. There is a small amount of midline shift right to left of roughly 2 mm at the levelof the foramen of Monro. There is some compression of the right lateral ventricle. The left lateral ventricle, third, and fourth ventricles are normal in size. There are foci of decreased attenuationconsistent with small recent infarcts within the left frontal lobe and left martínez radiata. Bone window images demonstrate no signal suspicious lytic or blastic lesions. When today's study is compared to the parenchyma of 24 October [address] 23 October, there may be slightly less mass effectand midline shift on today's study and the fluid collection within the craniectomy defect overlyingthe lateral right cerebral hemisphere is slightly smaller. There has been interval removal of the drainage tube that was present within the craniectomy defect on previous brain CT and there is less ai r/gas within the operative defect relative to the previous brain CT. IMPRESSION: Redemonstrated postoperative changes consistent with right calvarial hemicraniectomy. Fluid collection overlying the lateral right cerebral hemisphere within the craniectomy defect containing some recent blood products. The overall size of this fluid collection is less than on previous study. In addition, there is less air/gas within this defect. Evolving large recent right cerebral hemisphere infarct with mass effect and approximately 2 mm of midline shift right to left. There appears to be slightly less mass effect and midline shift on today's study. Continued follow-up is recommended. Small recent cortical infarct in the lateral left frontal lobe as well as small recent infarc t in left martínez radiata which appears similar to previous study. Clinical correlation recommended.The report is dictated by Miranda Bowen MD (resident services coordinator) I, Joni Fabian MD have personally reviewed and interpreted this examination/study. > Interpreting Provider: Joni Fabian MD on 10/25/2022 2:[address] CARDIAC ANGIO STRUCT MORPH Result Date: 10/25/2022 PROCEDURE: CT CARDIAC ANGIO STRUCT MORPH, DATE/TIME OF EXAM: 10/23/2022 3:08 PM, LOCATION [facility] INDICATION: I63.411: Acute cerebrovascular accident (CVA) due to embolism of right middle cerebral artery (CMS/HCC) ADDITIONAL CLINICAL INFORMATION: Ordering Provider Reason For Exam: L atrial valve vegetations Technologist Note: Additional: COMPARISON: None. Procedure: CT structure and morphology with intravenous contrast material, including 3D image post-processing Acquisitionmode: Retrospective ECG gated. Contrast type and volume:Isovue .100 mL. Complications: None.. Imagequality: Good signal noise. There is motion artifact Heart rate: 99 bpm. Coronaries: The coronary arteries are not completely visualized due to motion artifact given the increase heart rate. Within the limitations, coronary arteries are normal in course and morphology and patent without calcification or plaque. Other cardiac findings: Left Atrium: The left atrium is normal size with no left atrial appendage filling defects. Left Ventricle: The ventricular cavity [...] the available limited view of the abdomen. Impression: 1. 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 2. Patent coronary vessels within the limitation of the motion artifact given the elevated heart during this exam > Interpreting Provider: Pepe Gonzalez MD on 10/25/2022 12:03 AM XR ABDOMEN KUB PORTABLE Result Date: 10/24/2022 PROCEDURE: XR ABDOMEN KUB PORTABLE, DATE/TIME OF EXAM: 10/24/2022 2:04 PM, LOCATION [facility] INDICATION: R47.1: Dysarthria ADDITIONAL CLINICAL INFORMATION: Ordering Provider ReasonFor Exam: ngt placement COMPARISON: Portable KUB dated 10/23/2022 FINDINGS/IMPRESSION: The enteric tube courses below the diaphragm with tip superimposing the gastric pyloric region. Drafted by Agnes Olmos DO (resident services coordinator). I, Vanessa Kumar MD have personally reviewed and interpreted this examination/study. > Interpreting Provider: Vanessa Kumar MD on 10/24/2022 2:17 PM MRI BRAIN WWO CONTRAST Result Date: 10/24/2022 PROCEDURE: MRI BRAIN WWO CONTRAST, DATE/TIME OF EXAM: 10/24/2022 10:56 AM, LOCATION [facility] INDICATION: I63.411: Acute cerebrovascular accident (CVA) due to embolism of right middle cerebral artery (CMS/HCC) ADDITIONAL CLINICAL INFORMATION: Ordering Provider Reason For Exam: Stroke workup Technologist Note: Does the patient have a defibrillator, pacemaker, aneurysm clips or implanted mechanical devices?->No Does the patient have metal implants or stents?->No Additional: None. EXAMINATION: Magnetic resonance imaging (MRI) of the brain without and with contrast CONTRAST: GADOBUTROL 1 MMOL/ML IV SSM SO:9.5 mL TECHNIQUE: MRI of the brain was performed prior to and following the uneventful administration of 9.5 mL intravenous GADAVIST contrast according to standard protocol. COMPARISON: CT of the head from 10/23/2022. FINDINGS: Redemonstration of postoperative changes of decompressive right hemicraniectomy with expected interval evolution of the previously seen post surgical changes along the craniectomy site. Redemonstration of extra-axial collection along the craniectomy site containing extra-axial blood products and fluid, measuring approximately 2.4 cm in thickness, (series 9, image 13), previously measured approximately 2.5 cm, grossly unchanged from prior. Interval resolution/redistribution of the previously seen foci of pneumocephalus compared to the prior CT. Interval removal of the previously seen right intracranial pressure monitor. Redemonstration of extensive cytotoxic edema in the right frontotemporoparietal regions, the right insula, and the right basal ganglia, extending along the martínez radiata and the marginally along the lateral aspect of the right centrum semiovale compatible with evolving acute right MCA territory infarction. There is persistent local mass effect on the right cerebral hemisphere with effacement of the overlayingsulci, mild external herniation of the infarcted brain through the craniectomy defect, effacement of the right lateral ventricle, and approximately 3-4 mm owbws-up-aghi midline shift at the level of the foramen of Monro, (series 13, image 18),, previously measured approximately 3 mm, (series 6, image 35), when remeasured, grossly similar to the prior. Extensive susceptibility artifacts along the craniectomy site compatible with expected postsurgical changes. There are additional scattered foci of restricted diffusion in the left frontoparietal region, extending along the subcortical white matter of the lateral left frontal lobe, the right martínez radiata, and the centrum semiovale, compatible with a small evolving acute to subacute infarcts. Otherwise, no new intracranial hemorrhage is identified. The ventricular caliber appears grossly stable compared to the prior. For reference, the diameter of the left ventricular trigone measures approximately 1.2 cm, (series 4, image 33), previously measured approximately 1.3 cm, (series 4, image 19). The basal cisterns are mildly effaced. The re maining ventricles are of normal size, shape, and morphology. Diffuse leptomeningeal enhancement along the right frontotemporoparietal infarcted area compatible with expected reactive changes. No enhancing lesions are otherwise identified. The corpus callosum and sella appear normal. The posterior fossa, brainstem, and craniocervical junction appear grossly stable. The visualized portions of the orbits appear grossly unremarkable. There is mild paranasal sinus disease. There is suspected minimal opacification in the right mastoid air cells. The remaining mastoid air cells appear grossly clear. Normal flow voids are demonstrated in the carotid arteries and basilar artery. The calvarium and visualized cervical spine otherwise appear normal. IMPRESSION: 1.Redemonstration of postoperative changes of a right hemicraniectomy with expected postsurgical changes as outlined above. 2.Redemonstration of evolving large right MCA territory infarction with extensive cytotoxic edema and mild external herniation of the brain through the craniectomydefect. Persistent local mass effect on the right cerebral hemisphere, effacement of the right lateral ventricle, and approximately 3-4 mm [id number]-[id number] midline shift, grossly similar to the prior. 3.Mild dilation of the left lateral ventricle may represent subtle left ventricular entrapment, overall grossly similar to prior. 4.Additional multiple foci of abnormal diffusion within the left frontotemporal lobes with associated T2 FLAIR hyperintensity representing additional small acute to subacute infarcts, likely of cardioembolic etiology. Findings communicated to Dr. Mohr by Dr. Major at 1138 hours on 10/24/2022 with readback comprehension and verification. Report dictated by Tim Major MD (resident services coordinator). Jasper Ornelas MD have personally reviewed and interpreted this examination/study. 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 Endotracheal tube terminates in the midthoracic trachea. There is no focal consolidation. No pleural effusion or pneumothorax. The cardiomediastinal silhouette is normal. No acute osseous abnormality. Report dictated by Agnes Olmos DO (resident services coordinator). Vanessa Ornelas MD have personally reviewed and interpreted this examination/study. > Interpreting Provider: Vanessa Kumar MD on 10/24/2022 1:03 PM ECHO SARAH Result Date: 10/24/2022 ??? Aortic??Valve: Valve structure is normal. There is a 6 x 7 mm independently mobile mass on the left coronary cusp. Differential includes vegetation (non- bacterial thrombotic endocarditis, infective endocarditis) vs less likely fibroelastoma. ??? Left??Atrium: No right to left intracardiac or extracardiac shunt present viewable with agitated saline, color Doppler and Valsalva maneuver. Normal sized appendage. Normal appendage flow velocity. No thrombus present in the left atrial appendage (MADELEINE). ??? Left??Ventricle: Left ventricle size is normal. Hyperdynamic systolic function with a visually estimated EF of 75 - 80%. ??? No hemodynamically significant valvular abnormality. XR ABDOMEN KUB PORTABLE Result Date: 10/24/2022 PROCEDURE: XR ABDOMEN KUB PORTABLE, DATE/TIME OF EXAM: 10/23/2022 1:53 PM, LOCATION [facility] INDICATION: R47.1: Dysarthria ADDITIONAL CLINICAL INFORMATION: Ordering Provider ReasonFor Exam: NGT placement COMPARISON: Portable KUB dated 10/20/2022 FINDINGS/IMPRESSION: The enteric tube courses below the diaphragm with tip superimposing the stomach. Drafted by Agnes Olmos DO (resident services coordinator). I, Vanessa Kumar MD have personally reviewed and interpreted this examination/study. 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 EXAMINATION: Computed tomography (CT) of the head without contrast TECHNIQUE: CT of the head was performed without contrast according to standard protocol. CT dose reduction technique was used, including Automated Exposure Control. COMPARISON: Comparison is made with a CT head dated 10/22/2022. FINDINGS: Redemonstration of postoperative changes consistent of a right hemicraniectomy with underlying extra-axial blood products along the lateral cerebral convexity and small foci of pneumocephalus, slightly decreased or redistributed compared to prior. Unchanged appearance of a right intracranial pressure monitor. Extensive cytotoxic edema and mass effect in the right MCA territory with associated diffusesulci effacement and right lateral ventricle effacement grossly unchanged from prior. There is a right to left midline shift measuring up to 2 mm, stable to mildly improved from prior. No new intracranial hemorrhage or intra- or extra-axial fluid collections are identified. The ventricular morphology is stable compared to prior exams. The basal cisterns are mildly effaced. The visualized portionsof the orbits appear grossly unremarkable. Minimal opacification in the left ethmoid air cells. Theimaged mastoid air cells appear grossly clear. A presumed nasogastric tube present. Mild dilation of the left lateral ventricle likely representing mild left ventricular entrapment. Hyperdensity along the right sylvian fissure compatible with right MCA thrombosis. No acute calvarial fracture is identified. There is soft tissue edema overlying the right hemicraniectomy site and right zygomatic region are essentially unchanged from prior. IMPRESSION: 1.Redemonstration of postsurgical changes of decompressive craniectomy and evolving right middle cerebral artery territory infarct. 2.No hemorrhagic transformation. 3.Extensive cytotoxic edema and mass effect with approximately 2 mm midline shift, [place] similar or slightly improved from prior. 4.Stable right intracranial pressure monitor. The report is dictated by Miranda Bowen MD(resident services coordinator) I, Jasper Sifuentes MD have personally reviewed and interpreted this examination/study. 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 COMPARISON: No prior study is available for comparison at the time of this dictation. FINDINGS: Redemonstration of post surgical changes of a right hemicraniectomy, and a right MCA infarct. Stable appearance of right intracran ial pressure monitor. There are extra-axial blood products along the right lateral cerebral convexity at the craniectomy site with associated pneumocephalus consistent with postsurgical changes. There is extensive edema and mass effect in the right MCA territory. There is sulcal effacement and effac ement of the right lateral ventricle. There is right to left midline shift measuring up to 4 mm, stable from prior There is no evidence of new acute intracranial hemorrhage. The ventricular morphology is stable compared to prior examination. The basilar cisterns are patent. The orbits appear normal. The paranasal sinuses are clear. The mastoid air cells are clear. IMPRESSION: 1.Redemonstration of postsurgical changes of decompressive right hemicraniectomy for evolving right middle cerebral artery territory infarct. There is significant edema and mass effect with approximately 4 mm of midline shift, unchanged from prior. No evidence of new acute intracranial hemorrhage. > Interpreting Provider: Lonnie Rae MD on 10/22/2022 3:[address] HEAD WO CONTRAST Result Date: 10/22/2022 PROCEDURE: CT HEAD WO CONTRAST DATE/TIME OF EXAM: 10/22/2022 2:33 PM CLINICAL INFORMATION: None relevant/not provided if blank. 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 FINDINGS: Redemonstration of post surgical changes of a right hemicraniectomy, and a right MCA infarct. Stable appearance of right intracranial pressuremonitor. There are extra-axial blood products along the right lateral cerebral convexity at the craniectomy site with associated pneumocephalus consistent with postsurgical changes. There is extensive edema and mass effect in the right MCA territory. There is sulcal effacement and effacement of theright lateral ventricle. There is right to left midline shift measuring up to 4 mm, stable from prior There is no evidence of new acute intracranial hemorrhage. The ventricular morphology is stable compared to prior examination. The basilar cisterns are patent. The orbits appear normal. The paranasal sinuses are clear. The mastoid air cells are clear. IMPRESSION: 1.Stable appearance of postsurgical changes of decompressive right hemicraniectomy for evolving right middle cerebral artery territory infarct. There is significant edema and mass effect with approximately 4 mm of midline shift, unchanged from prior. No evidence of new acute intracranial hemorrhage. Report dictated by Lorenzo Horta MD (nursing resident). I, Lonnie Rae MD have personally reviewed and interpreted this examination/study. > Interpreting Provider: Lonnie Rae MD on 10/22/2022 3:10 PM XR CHEST 1VW PORTABLE Result Date: 10/21/2022 PROCEDURE: XR CHEST 1VW PORTABLE, DATE/TIME OF EXAM: 10/21/2022 8:53 AM, LOCATION [facility] INDICATION: R53.1: Weakness ADDITIONAL CLINICAL INFORMATION: Ordering Provider Reason ForExam: post intubation COMPARISON: None. Chest radiograph FINDINGS/IMPRESSION: Lines, tubes, hardware: * An endotracheal tube seen with the tip appropriately positioned in the mid thoracic trachea. * Enteric tube is seen with its tip below the diaphragm out of the field of view. Minimal right basilar airspace opacification. Otherwise, no confluent consolidation. No pneumothorax is visible. The cardiomediastinal silhouette is normal. The visible bony thorax is intact. Report dictated by Christopher Tobin MD, MD (resident services coordinator). I, HEATHER FREGOSO MD have personally reviewed and interpreted this examination/study. > Interpreting Provider: HEATHER FREGOSO MD on 10/21/2022 5:59 PM ECHO TRANSTHORACIC W BUBBLE STUDY Result Date: 10/20/2022 ??? Left??Ventricle: Left ventricle size is normal. Normal wall thickness. Normal systolic functionwith a visually estimated EF of 60 - 65%. Normal wall motion. Normal diastolic function. ??? NormalRV size and systolic function. ??? No significant valvular abnormalities. ??? Bubble study negativefor shunt. ??? Normal IVC and visualized portion of aorta. CT HEAD WO CONTRAST Result Date: 10/20/2022 DATE/TIME OF EXAM: 10/20/2022 9:13 PM, LOCATION [facility] INDICATION: I63.411: Acute cerebrovascular accident (CVA) due to embolism of right middle cerebral artery (CMS/HCC) ADDITIONAL CLINICAL INFORMATION: Ordering Provider Reason For Exam: [facility] COMPARISON: Multiple prior studies, most recently CT head dated 10/20/2022 at 8:19 AM TECHNIQUE: CT of the head was performed withoutcontrast according to standard protocol. FINDINGS: There has been interval postsurgical changes of right hemicraniectomy for management of cerebral edema following right MCA territory infarct. A right-sided subdural drain is in place. There is redemonstration of evolving right middle cerebral artery territory infarct, with associated edema and mass effect with sulcal effacement, effacement of theright lateral ventricle, and vqqrr-mn-foaf midline shift measuring up to 4 mm and stable from prior(series 5, image 36). A catheter is seen terminating within the region of the right parietal lobe, likely representing an ICP monitor. No evidence of acute intracranial hemorrhage. The ventricular morphology is stable from prior, without evidence of obstructive hydrocephalus. The basilar cisterns are patent. The scott-white matter differentiation otherwise appears normal. The orbits appear normal.The paranasal sinuses are clear. The mastoid air cells are clear. No soft tissue abnormality is identified. IMPRESSION: Interval postsurgical changes of decompressive right hemicraniectomy with ICP monitor and subdural drain in place. 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 > Dictated by Bassam Jovel M.D. (nursing resident) Gonzalez Ornelas MD have personally reviewed and interpreted this examination/study. > Interpreting Provider: Gonzalez Velasco MD on 10/20/2022 11:06 PM XR ABDOMEN KUB PORTABLE Result Date: 10/20/2022 PROCEDURE: XR ABDOMEN KUB PORTABLE DATE/TIME OF EXAM: 10/20/2022 12:44 PM Indication: I63.511: Rightmiddle cerebral artery stroke (CMS/HCC) Evaluation of NG tube placement COMPARISON: None. FINDINGS/IMPRESSION: An enteric tube is seen coursing into the stomach with its tip and side-port in the gastric body. Report dictated by Royer Stovall MD (resident services coordinator). Amanda Ornelas MD have personally reviewed and interpreted this examination/study. > Interpreting Provider: Amanda Prieto MD on 10/20/2022 3:[address] HEAD NON CONTRAST Result Date: 10/20/2022 PROCEDURE: CT HEAD WO CONTRAST DATE/TIME OF EXAM: 10/20/2022 8:19 AM CLINICAL INFORMATION: None relevant/not provided if blank. Indication: R44.9: Left-sided sensory deficit present Additional History: Follow-up of acute stroke COMPARISON: Noncontrast brain CT 19 October 2022. TECHNIQUE: Noncontrast CT brain was performed utilizing standard protocol. CT dose reduction technique was used, including Automated Exposure Control. FINDINGS: There is no definite acute intracranial hemorrhage. There is alarge confluent area of decreased attenuation within the right cerebral hemisphere consistent with a large acute infarct in the distribution of the right middle cerebral artery. Mass effect is produced approximately 4 mm of midline shift right to left. There is some mild effacement of the right side of the suprasellar cistern. There is increased attenuation within the region of the right middle cerebral artery likely representing thrombus. There is some effacement of the right lateral and third ventricles due to the mass effect related to the acute infarct. The left lateral and fourth ventricles are within normal limits in size. No definite areas of abnormal attenuation within the left cerebral hemisphere. Bone window images are negative for depressed skull fracture. When comparison is made to the previous study of 19 October 2022 there has been progression of the acute infarct in the right middle cerebral artery distribution which is larger in size and with new mass effect and midlineshift. IMPRESSION: Findings consistent with a large acute area of infarction in the right cerebral hemisphere in the distribution of the right middle cerebral artery with mass effect and approximately 4 mm of midline shift right to left. There is no definite hemorrhagic transformation. There is hyperdensity of the right middle cerebral artery likely representing thrombus. Clinical correlation and continued close interval follow-up are recommended. Results discussed with the stroke team physician, Dr. Stephanie Hester, on 20 October 2022 approximately 1225 hours. > Interpreting Provider: Joni Fabian MD on 10/20/2022 12:[address] ANGIO BRAIN NECK STROKE Result Date: 10/19/2022 PROCEDURE: CT ANGIO BRAIN NECK STROKE, DATE/TIME OF EXAM: 10/19/2022 8:16 AM, LOCATION [facility] INDICATION: Code Stroke ADDITIONAL CLINICAL INFORMATION: Ordering Provider Reason For Exam: Technologist Note: Additional: EXAMINATION: 1. Computed tomographic (CT) angiography of the head with contrast 2. CT angiography of the neck with contrast TECHNIQUE: CT angiography of the headand neck was obtained after the uneventful administration [...] a concurrent noncontrasted head CT for detailed intracranialfindings including findings suggesting an acute right MCA [...] arteries are patent. The basilar artery is patentpatent. 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 IMPRESSION: 1. [...] Lonnie Rae MD on 10/19/2022 8:[address] BRAIN - Stroke Result Date: 10/19/2022 PROCEDURE: CT BRAIN STROKE, DATE/TIME OF EXAM: 10/19/2022 8:04 AM, LOCATION [facility] INDICATION: Code Stroke ADDITIONAL CLINICAL INFORMATION: Ordering [...] of scott-white matter differentiation in the right frontotemporallobes and the right insula, concerning for an acute infarct. There is suggestion of a hyperdense right MCA likely represent acute thrombus (series 5 image 25). No acute intracranial hemorrhage or intra- or extra-axial fluid collections are identified. The ventricles are of normal size, shape, and morphology. The basal cisterns are patent. No mass effect or midline shift is seen. The scott-white mat ter differentiation is normal. The visualized portions of [...] Lonnie Rae MD on 10/19/2022 8:15 AM Right middle cerebral artery stroke (CMS/HCC) (POA: Unknown) Acute cerebrovascular accident (CVA) due to embolism of right middle cerebral artery (CMS/HCC) (POA: Yes) Nihss score 9 (POA: Yes) Received intravenous tissue plasminogen activator (tPA) in emergency department (POA: Yes) GERD (gastroesophageal reflux disease) (POA: Yes) Hemianopsia (POA: Yes) Weakness (POA: Yes) Left-sided sensory deficit present (POA: Yes) Gaze palsy (POA: Yes) Migraine (POA: Unknown) Hypertension (POA: Unknown) Presence of externally removable percutaneous endoscopic gastrostomy (PEG) tube (CMS/HCC) (POA: Unknown) Assessment Consuelo Darby??is a 41 year old??female who??presented on 10/19 with Right MCA syndrome ??s/p TNK. CTA 1 M1 occlusion. S/P mechanical thrombectomy with R M1 recanalization and TICI2b. CT 10/20/22 with edema and mild shift. S/P decompressive right hemicraniectomy. Echo showed a??mobile??aortic valve vegetation.??MRI brain with scattered cortical R hemisphere infarcts with petechiae. Pt febrile and being evaluated. ID following. ?? Stroke Type:??Ischemic Stroke Mechanism:??Cardioembolic Plan TIA/Stroke Workup; active -R M1 ischemic stroke; active - s/p TICI2b revascularization, TNK - s/p decompressive hemicrani on 10/20 for malignant MCA - HbA1C: 6.0, LDL: 91, Cardiac Enzymes; wnl - atorvastatin 80 mg - warfarin bridge ?? Core Measures TNK??administration: yes Anti-thrombotic: holding while on AC Statin:??atorvastatin 80mg DVT prophylaxis:??heparin gtt + warfarin bridge PEG tube ?? Migraine - verapamil 40 TID ?? GENESIS - cont home amitriptyline ?? Vegetation on left coronary cusp - Cardiology following - CTS following - Empiric cefepim, vanc., doxycycline EOT 11/22 - Appreciate ID recs after repeat TTE - Cardiology will repeat SARAH OP setup after completing abx. ?? Fever - Blood cx still negative, - d-dimer high, US extremities b/l UE and LE - ID on board. ? R illiac and common femoral artery occlusion - s/p R common femoral thrombectomy and patch angioplasty by vasc surgery ?? HTN - home metop ?? Blood Pressure Goals: SBP <160, map >70 ?? Vit D deficiency - Vit D 2,000 U daily ? Individual Modifiable Risk Factors Hypertension:??no Hyperlipidemia:??no Diabetes:??no Atrial Fibrillation:??no Tobacco:??no ?? Case findings discussed with Dr. Drew, Stroke Attending. Karishma Ojeda MD Neurology Resident * Felicia Lopez RN - 11/08/2022 5:14 AM CDT Pt nonverbal but nodding and signing appropriately. VSS. Pain controlled w/ PRN medication. Voidingper puentes. Puentes care complete. No BM. turns completed. WCTM * Felicia Lopez RN - 11/08/2022 5:12 AM CDT Problem: ELOPEMENT/ABDUCTION Goal: Risk for elopement &/or abduction during hospitalization is minimized Outcome: Progressing Problem: Pain/Discomfort Goal: Patient uses pharmacological and non-pharmacological pain management strategies. Outcome: Progressing Goal: Patient verbalizes acceptable level of pain relief and ability to engage in desired activity. Outcome: Progressing Problem: Mobility Goal: Patient's mobility/activity will be maintained as optimum level for age, diagnosis and physical limitations Outcome: Progressing Goal: Continuum of care needs are further met through referral to outpatient services when appropriate. Outcome: Progressing Goal: Patient reports the ability to perform Activities of Daily Living. Outcome: Progressing Problem: Communication Impairment/Dysarthria Goal: Ability to express needs and understand communication Outcome: Progressing Problem: Nutrition Goal: Nutritional status is improving Outcome: Progressing Problem: Glycemic Control Goal: Clinical indication of glycemia balance is achieved Outcome: Progressing Problem: Knowledge Deficit,Education,Discharge Plan Goal: The patient/family will understand cerebrovascular disease and its symptoms, treatment and management Outcome: Progressing Problem: Oral Intake: Inadequate oral intake Goal: Total intake will meet estimated nutrient needs Outcome: Progressing Problem: Swallowing Goal: LTG - Patient will tolerate the least restrictive diet consistency to allow for safe consumption of daily meals Outcome: Progressing Goal: STG - Patient will participate in instrumental assessment of swallowing as appropriate Outcome: Progressing Goal: STG - Patient will tolerate therapeutic trials of recommended consistency without clincial signs and symptoms of aspiration Outcome: Progressing Goal: STG - Patient will tolerate recommended food and liquid consistencies without clinical signs and symptoms of aspiration Outcome: Progressing Goal: STG - Patient will complete swallowing exercises Outcome: Progressing Goal: STG - Patient/family will complete oral motor exercises for improved bolus control Outcome: Progressing Problem: Transfers Goal: STG - Transfer from bed to chair Outcome: Progressing Problem: Risk for Violence: Self-Directed or Other Directed Description: Diagnosis: Risk for self-directed Violence or Risk for Directed Violence Risk Factors: Biochemical/neurologic imbalances, impulsivity, manic excitement, psychotic symptomatology, rage reaction, restlessness Possibly Evidenced By: agitated behaviors, delusional thinking, hallucinations, loud/threatening/profane speech, poor impulse control, provocative behaviors, verbal threats against others, verbal threats against self Goal: Patient will verbalize control of feelings. Outcome: Progressing Goal: Patient will respond to interventions when potential or actual loss of control occurs. Outcome: Progressing Goal: Patient will refrain from provoking others to physical harm. Outcome: Progressing Goal: Patient will display nonviolent behaviors toward others in the hospital, with the aid of medications and nursing interventions. Outcome: Progressing Goal: Patient will seek help when experiencing aggressive impulses. Outcome: Progressing Goal: Patient will refrain from verbal threats and loud, profrane language toward others. Outcome: Progressing Goal: Patient will be safe and free from injury. Outcome: Progressing Problem: Skin Integrity Goal: Skin integrity is maintained or improved Outcome: Progressing Problem: Neurological Deficit Goal: Neurological status is stable or improving Outcome: Progressing * Orquidea Pederson, TIO/LD - 11/07/2022 2:21 PM CDT Clinical Nutrition Assessment Brief Synopsis: Patient is at Nutrition Risk; Specific criteria can be found in assessment below Nutrition Plan: NPO+TF (via PEG tube) Jevity 1.5 at 50 ml/hr. Provides 1800 kcal, 77 g protein, 259 g carbohydrate, 912 ml free water. + 150 ml free water flush q 4 hrs or per MD if not on additional IV fluids Recommendations to Physician: Continue current TF regimen as indicated; advance diet per ST Comments: Pt scheduled for reassesment. Noted pt continues to fail ST swallow eval. Pt receiving Jevity 1.5 at goal rate; recommend continuing current TF regimen as indicated. Last BM 11/06 -- noted loose x 3. Pt on IV abx and bowel regimen, per MAY. Labs reviewed -- lytes wnl. Will continue to monitor per clinical nutrition guidelines. Assessment: Med/Surg History and Clinical Diagnoses: 41yo M who developed acute onset L sided weakness, L-sidedsensory deficits, and dysarthria. L sided weakness resolved in route and dysarthria improved in route. On arrival patient noted to L gaze plasy, L hemainopsia, mild dysarthria, and extinction. Height: 162.6 cm (5' 4 ) Weight: 95.3 kg (210 lb) BMI: Body mass index is 36.05 kg/m??. BMI Range: Severely Obese Class 2 IBW/lb (Calculated) Female: 120, Recent Weights/Methods 01/09/2020 1050 01/10/2021 1117 08/25/2021 0819 02/08/2022 1532 10/19/2022 0803 10/19/2022 0827 10/20/2022 1400 11/06/2022 1148 Weight: 86.5 kg (190 lb 9.6 oz) 80 kg (176 lb 6.4 oz) 84.8 kg (187 lb) 93.3 kg (205 lb 11.2 oz) 95.3 kg (210 lb 1.3 oz) 95.3 kg (210 lb 1.3 oz) 95.3 kg (210 lb) 95.3 kg (210 lb) Weight Method (Utilize Scales): -- -- Standing -- -- Bedscale -- -- Wt Comments: reviewed -- pt needs updated scaled weight Diet order accuracy Current diet order: NPO Current tube feeding order: Jevity 1.5 at 50 ml/hr Nutrition recommendation: agree with current nutrition order P.O.Intake for the past 48 hrs: No data recorded Supplement(s) Consumed- Last 48 hours None Food Allergies: No known food allergies GI Concerns: None Chewing/Swallowing: Dysphagia Pain affecting intake: No Estimated Needs: KCAL: [id number] (30-35 kcal/kg IBW) Protein (g): 82g (1.5 g/kg IBW) Fluid (ml): 1 ml/kcal Needs based on: (IBW of 54.5kg) Recommended Access Route: TF Laboratory values: Recent Labs Component Name 11/06/22 2312 11/06/22 0136 11/05/22 1124 10/20/22 0302 10/19/22 0824 10/19/22 0808 06/15/22 0757 12/09/18 0812 07/25/186 03/01/16 0817 0000 BUN 8 8 8 - 13 - 12 10 7 9 - CREATININE 0.46* 0.56 0.54* - 0.84 - 0.74 0.82 0.93 0.60 - NA 140 139 139 - 139 - 138 - - - - POTASSIUM 3.6 3.5 3.8 - 4.2 - 5.1* 3.8 3.8 3.6 - CL 108* 111* 104 - 108* - 107 - - - - CO2 22 21* 23 - 21* - 23 24 21* 21* - GLUCOSE 107 144* 101 - 109 - 104 120* 105 83 - CALCIUM 8.5 8.3* 8.5 - 8.9 - 8.9 9.4 9.2 8.1* - PROT - - - - 7.7 - 7.5 - - - - ALB - - - - 3.5 - 3.6 - - - - TBILI - - - - 0.1* - 0.1* - - - - ALKPHOS - - - - 52 - 44 56 52 111 - ALT - - - - 16 - 9 17 12* 21 - AST - - - - 19 - 17 18 20 25 - ANIONGAP 14 11 16 - 14 - 13 12 11 10 - BCR 17 14 15 - 15 - 16 - - - - OSMOLALITY 289 289 286 - 289 - 286 - - - - AGRATIO - - - - 0.8* - 0.9* - - - - EGFR >90 >90 >90 - >90 - >90 >60 >60 >60 - EGFRAFR - - - - - - - >60 >60 >60 - - = values in this interval not displayed. Medications: Current Facility-Administered Medications Medication ??? 0.9% NaCl injection 3 mL And ??? 0.9% NaCl injection 3 mL ??? acetaminophen (Tylenol) tablet 650 mg ??? atorvastatin (Lipitor) tablet 80 mg ??? bisacodyl (Dulcolax) suppository 10 mg ??? cefepime (Maxipime) 2,000 mg in 0.9% NaCl IV 50 mL IVPB ??? diphenhydrAMINE-zinc acetate (Benadryl Extra Strength) 2-0.1 % cream ??? doxycycline monohydrate capsule 100 mg ??? [START ON 11/08/2022] enoxaparin (Lovenox) injection 100 mg ??? enoxaparin (Lovenox) injection 100 mg ??? guaiFENesin (Robitussin) solution 10 mL ??? lansoprazole (Prevacid) suspension 30 mg ??? loratadine (Claritin) tablet 10 mg ??? metoprolol tartrate IR (Lopressor) tablet 25 mg ??? oxyCODONE (immediate release) (Roxicodone) tablet 5 mg ??? perflutren lipid microsphere (Definity) injection 0.5 mL ??? polyethylene glycol 3350 (Miralax) packet 17 g ??? potassium chloride 40 mEq in 270 mL bolus ??? senna-docusate (Senokot-S) tablet 2 tablet ??? tamsulosin (Flomax) capsule 0.4 mg ??? vancomycin (Vancocin) 1,500 mg in 500 mL NaCl IVPB Premix ??? vancomycin (Vancocin) IV dose per pharmacy ??? verapamil (Isoptin) tablet 40 mg ??? vitamin D3 (Cholecalciferol) 25 MCG (1000 UNITS) tablet 2,000 Units ??? warfarin (Coumadin) dose per pharmacy ??? warfarin (Coumadin) tablet 5 mg Skin/Wound: s/p R hemicraniectomy Education needed: Stroke Nutrition Therapy Education Provided: Prior to Discharge Nutrition Care Process (1) Nutrition Diagnostic Statement: Inadequate oral intake related to:: decreased ability to consume or tolerate food and/or fluids due to illness as evidenced by:: oral intake insufficient to meet estimated requirements Nutrition Diagnostic Statement Progress: Nutrition problem continues Nutrition Intervention: Enteral nutrition: Monitoring: TF, labs, meds, BM, weight Evaluation: Nutrition Goal: Total intake will meet estimated nutrient needs Nutrition Goal Timeframe: Throughout stay Nutrition Goal Progress: Continue with current goal Orquidea Pederson RD/MELVA DAILY Ascom: [id number] * Rosa Vegas PT - 11/07/2022 2:02 PM CDT [facility] Physical Medicine and Rehabilitation Physical Therapy Progress Note Patient: Consuelo Darby Med Record Number: [id number] Date of : 1980 Age: [age] year old PPE worn by staff: gloves;mask - procedural PPE worn by patient: gown - patient, clean;socks - clean 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 Patient gives 'thumbs up' when asked to participate in PT treatment. Patient's spouse present and provides positive encouragement throughout session. Pain Assessment: Pain Location #1 Pain Scale/Observation: Behaviors (patient shakes head 'no' when asked about pain) PRECAUTIONS: Weight Bearing Status: (no restrictions) Activity Level: Up ad bigg Other Precautions: Fall, Helmet OBJECTIVE: At start of therapy session, patient found in bed, with bed alarm on and spouse present. Helmet donned in supine prior to upright activity General Appearance: Adult female, in NAD LDAs: IV's: Peripheral line, Catheter, and PEG Tube Vitals: patient is asymptomatic on room air throughout session Mental Status/Cognition: Level of Consciousness-Adult: Alert Orientation Level: Unable to Obtain Cognition: Follows one step commands;Attention/concentration-decreased;Processing-delayed;Judgement- decreased;Safety awareness-decreased Mobility: A gait belt and non-slip socks were used for all out of bed activity this date. Bed Mobility: Rolling: Moderate Assistance to Right;Moderate Assistance to Left;Other (Comment) Supine to Sit: Maximum Assistance;X 2 (patient able to use RUE to assist LUE to midline, abducts RLE to EOB but requires assist at LLE) with HOB in semi-fowlers position Sit to Supine: Moderate Assistance;X 2 Transfers: Bed to Chair: Total Assistance;X 2 Type of Transfer: Lateral Transfer (in supine to neuro chair) Balance: Sitting - Static: Fair (with BUE supported in tripod position on table; maintains static sitting x15 seconds before fatiging into R posterolateral trunk lean) Sitting - Dynamic: Poor + (with BUE supported in tripod position) Therapeutic Exercises: Seated RUE push/pulls: x10 Seated in tripod position with BUE supported on table: reaching to tile picker object with RUE and placing object on various targets to L side of midline ACTIVITY TOLERANCE: Patient's activity tolerance: fair plus. TREATMENT/INTERVENTIONS: Patient seen for bed mobility training, sitting balance training, and seated therapeutic exercises with emphasis on neutral spine posture and gaze to midline/L side Modified [place]: Current Modified Maryann Score: 5 AM-PAC 6 Clicks Mobility Raw Score:: 7 EDUCATION: While performing PT, Patient was instructed in:functional mobility training, weight bearing status, safety awareness/fall precautions , discharge planning, use of call light Presented to patient who demonstrates Fair understanding of instructions given. ASSESSMENT: Patient would benefit from additional Physical Therapy sessions to achieve the following functionalgoals to enhance independence. Short Term Goals: Goal Formation?Patient unable to participate in goal formulation Patient will perform bed mobility??with moderate assist Patient will transfer bed to/from chair??with maximal assist Patient will sit EOB x10 minutes with minimal assist ?? Environmental Marketer Goal(s): Patient to discharge to appropriate next level of inpatient care. INFORMED CONSENT TO TREATMENT: Plan of care including recommended therapy, goals and frequency, discussed with patient who demonstrates understanding and agrees to proceed. Equipment Issued: none Plan: Patient continues to benefit from skilled therapy services. If patient is discharged from the facility, this note serves as a discharge summary if further physical therapy visits did not occur. Refer to filed flowsheet for further details. Following therapy session, patient left in [employer] [employer] chair with seat belt donned, with helmet donned, with call light within reach, with family in room, with RN in room, with therapy cues visibleon white board. * Olga Arroyo MD - 11/07/2022 1:58 PM CDT Stroke Service Daily Progress Note Consuelo Darby Age: [age] year old Date of : 1980 Date of Admission: 10/19/2022 Hospital Day: 19 Subjective Consuelo Darby is a 41yo woman hemiplegic migraine, GERD, GENESIS. who developed acute onset L sided weakness, L-sided sensory deficits, and dysarthria. L sided weakness resolved in route and dysarthria improved in route. On arrival patient noted to hae Amy gaze plasy, L hemainopsia, mild dysarthria, andextinction. NIHSS: 7. S/p TNK and TICI2b revascularization of the R MCA M1 occlusion.Repeat CTH showing edema in R MCA territory. On 10/20/22 patient taken for hemicraniectomy, post-op CTH showing stable midline shift. Initial hypercoag work up negative, repeat in 2 months. -10/23- SARAH concerning for aortic cusp vegetations. [...] Bilateral pulses are present. Vascular surgery consult. 8/21: R common femoral thrombectomy and patch angioplasty. 10/31: CT A/P obtained / concern for abscess by GI team while evaluating her for G tube 11/01 CT A/P obtained and no abscess was identified in the abdominal area. Postsurgical changes after vascular surgery. 11/02 GI to take her to OR for G tube. Ready TTF. 11/03 start warfarin bridge 11/04 CT head for headache and eye discomfort after bumping her head on hemicrani site. NSGY aware and evaluated her. CT looks stable. 11/05 had a fever. Infectious workup initiated and ID reconsulted. Plan to broaden spectrum (currently on ceftriaxone + vanc, switch to cefe + vanc + doxycycline ) after blood cultures are taken 11/06: no acute event. On heparin gtt. Warfarin bridge. INR 1.4. Interval History: no acute event. On heparin gtt. Lovenox-warfarin bridge. INR 1.6. Objective Patient Vitals for the past 24 hrs: BP Temp Temp src Pulse Resp SpO2 11/07/22 1000 135/74 -- -- 97 -- -- 11/07/22 0801 135/74 (!) 100.5 ??F (38.1 ??C) Axillary 97 18 97 % 11/07/22 0450 136/72 98.9 ??F (37.2 ??C) Oral 102 -- 96 % 11/07/22 0014 130/82 99.2 ??F (37.3 ??C) Oral 106 -- 96 % 11/06/222122 (!) 135/101 -- -- 86 -- -- 11/06/221952 119/62 98.1 ??F (36.7 ??C) Oral 84 18 96 % Intake/Output Summary (Last 24 hours) at 11/07/2022 1358 Last data filed at 11/07/2022 0801 Gross per 24 hour Intake 1300 ml Output 3400 ml Net -2100 ml Exam: Cortical Function Mental Status Awake, alert, follows basic commands Orientation REYNOLD Language No verbal output Visual Powell Intact bilaterally to confrontation Neglect No visual neglect noted, no tactile neglect noted Cranial Nerves II Pupils 3 mm and bilaterally reactive to light. Fundoscopic exam not performed. VIII Hearing is intact bilaterally to voice. III/IV/ Extraocular muscles intact. No diplopia, ptosis, nystagmus or convergence abnormalities noted. IX/X REYNOLD V REYNOLD XI Head turning and shoulder shrug are intact. VII L facial palsy XII Tongue is midline with normal movements and no atrophy noted. Motor Function Movement No abnormalities noted Bulk No abnormalities noted Tone No abnormalities noted Moves RUE and RLE, tries to withdraw to pain in LUE and LLE Sensory Light Touch REYNOLD Noxious Stimuli Symmetric and intact bilaterally Labs: Recent Labs Component Name 11/06/22 23111/06/22 0136 11/05/22 1227 10/23/22 0129 10/22/22 0153 WBC 4.7 6.5 7.9 6.9 - - RBC 3.20* 3.42* 3.28* 3.24* - - HGB 9.3* 10.0* 9.7* 9.7* - - HCT 29.5* 32.8* 30.2* 29.6* - - PLT - - - - 199 - = values in this interval not displayed. Recent Labs Component Name 11/06/22231111/06/226 11/05/22 1124 NA 140 139 139 CL 108* 111* 104 CO2 22 21* 23 BUN 8 8 8 CREATININE 0.46* 0.56 0.54* CALCIUM 8.5 8.3* 8.5 No results for input(s): MG in the last 28760 hours. Recent Labs Component Name 11/06/22231111/06/22 01311/05/22 1124 PHOS 4.3 3.6 3.2 Recent Labs Component Name 11/07/22 0305 11/06/22 23111/06/22 1830 11/06/22 0740 11/06/22 0136 11/05/22 1115 11/05/22 0350 PT 18.4* - - - 17.1* - 15.5* INR 1.6 - - - 1.4 - 1.3 PTT - 63.4* 68.6* 97.1* 100.4* - 77.4* - = values in this interval not displayed. No results for input(s): A1C in the last 92430 hours. Recent Labs Component Name 10/20/22 0302 06/15/22 0757 CHOL 173 204* HDL 42 37* LDLCALC 91 117* TRIG 201* 251* Recent Labs Component Name 11/06/22 0136 TSH 1.682 No results for input(s): CKMB, CKTOTAL, CKMB, TROPONINI, BNP in the last [address] ANGIO BRAIN NECK STROKE Result Date: 10/19/2022 IMPRESSION: 1. Occlusion of the distal M1 [...] Lonnie Rae MD on 10/19/2022 8:[address] BRAIN - Stroke Result Date: 10/19/2022 IMPRESSION: 1. No acute intracranial hemorrhage. 2. [...] Lonnie Rae MD on 10/19/2022 8:15 AM Right middle cerebral artery stroke (CMS/HCC) (POA: Unknown) Acute cerebrovascular accident (CVA) due to embolism of right middle cerebral artery (CMS/HCC) (POA: Yes) Nihss score 9 (POA: Yes) Received intravenous tissue plasminogen activator (tPA) in emergency department (POA: Yes) GERD (gastroesophageal reflux disease) (POA: Yes) Hemianopsia (POA: Yes) Weakness (POA: Yes) Left-sided sensory deficit present (POA: Yes) Gaze palsy (POA: Yes) Migraine (POA: Unknown) Hypertension (POA: Unknown) Presence of externally removable percutaneous endoscopic gastrostomy (PEG) tube (CMS/HCC) (POA: Unknown) Assessment ??Consuelo Darby is a 41 year old female who presented on 10/19 with Right MCA syndrome s/p TNK. CTA 1 M1 occlusion. S/P mechanical thrombectomy with R M1 recanalization and TICI2b. CT 10/20/22 with edema and mild shift. S/P decompressive right hemicraniectomy. Echo showed a mobile aortic valve vege tation. MRI brain with scattered cortical R hemisphere infarcts with petechiae. ?? Stroke Type: Ischemic Stroke Mechanism: Cardioembolic ?? 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 Fever - Blood cx still negative, - d-dimer high, CTA PE ordered. - ID on board. R illiac and common femoral artery occlusion - s/p R common femoral thrombectomy and patch angioplasty by vasc surgery ?? HTN - home metop Blood Pressure Goals: SBP <160, map >70 Vit D deficiency - Vit D 2,000 U daily Individual Modifiable Risk Factors Hypertension: no Hyperlipidemia: no Diabetes: no Atrial Fibrillation: no Tobacco: no Olga Arroyo MD Neurology Resident * Jaime Drew MD - 11/07/2022 1:09 PM CDT The above note was reviewed. The patient was seen and examined. I would add the following: I saw and examined the patient with the resident and/or medical student and/or nurse practitioner. I have verified all details of the note and agree with his/her documentation with additions and modifications as listed in my separate note. Please refer to the resident's, medical student's, or nursepractitioner's note for plans of active problems not discussed in this note. 42F p/w M1 occlusion s/p TNK and MT and TICI2b revascularization. TTE showed mobile aortic valve vegetation. Developed MCA syndrome s/p hemicrani. MT c/b R iliac and common femoral a. occlusion s/p thrombectomy. On warfarin bridge now. Developed fever- consulted ID, broaden abx, Cxs- fever improving. D dimer was high though possibly inflammatory given improvement of symptoms with abx. MEDICATIONS FOR CURRENT ENCOUNTER: SCHEDULED MEDICATIONS: 0.9% NaCl injection 3 mL, Intracatheter, q8h acetaminophen (Tylenol) tablet 650 mg, Enteral Tube, q6h atorvastatin (Lipitor) tablet 80 mg, Enteral Tube, AT BEDTIME cefepime (Maxipime) 2,000 mg in 0.9% NaCl IV 50 mL IVPB, Intravenous, q8h doxycycline monohydrate capsule 100 mg, Enteral Tube, q12h enoxaparin (Lovenox) injection 100 mg, Subcutaneous, q12h guaiFENesin (Robitussin) solution 10 mL, Enteral Tube, q12h lansoprazole (Prevacid) suspension 30 mg, Enteral Tube, QDAY BEFORE BREAKFAST loratadine (Claritin) tablet 10 mg, Enteral Tube, QDAY metoprolol tartrate IR (Lopressor) tablet 25 mg, Enteral Tube, q12h perflutren lipid microsphere (Definity) injection 0.5 mL, Intravenous, intra- Procedure multiple polyethylene glycol 3350 (Miralax) packet 17 g, Enteral Tube, QDAY potassium chloride 40 mEq in 270 mL bolus, Intravenous, Once senna-docusate (Senokot-S) tablet 2 tablet, Enteral Tube, QDAY tamsulosin (Flomax) capsule 0.4 mg, Enteral Tube, QDAY vancomycin (Vancocin) 1,500 mg in 500 mL NaCl IVPB Premix, Intravenous, q8h vancomycin (Vancocin) IV dose per pharmacy, Does not apply, DIRECTED verapamil (Isoptin) tablet 40 mg, Enteral Tube, q8h vitamin D3 (Cholecalciferol) 25 MCG (1000 UNITS) tablet 2,000 Units, Enteral Tube, QDAY warfarin (Coumadin) dose per pharmacy, Other, QDay 1700 warfarin (Coumadin) tablet 5 mg, Enteral Tube, once warfarin [COMPLETED] potassium chloride 40 mEq in 270 mL bolus, Intravenous, Once [COMPLETED] warfarin (Coumadin) tablet 5 mg, Enteral Tube, once warfarin ?? [START ON 11/08/2022] enoxaparin (Lovenox) injection 100 mg, Subcutaneous, q12h ?? CONTINUOUS MEDICATIONS: PRN MEDICATIONS: 0.9% NaCl injection 3 mL, Intracatheter, PRN bisacodyl (Dulcolax) suppository 10 mg, Rectal, QDAY PRN diphenhydrAMINE-zinc acetate (Benadryl Extra Strength) 2-0.1 % cream, Topical, PRN ?? oxyCODONE (immediate release) (Roxicodone) tablet 5 mg, Enteral Tube, q6h PRN Patient Vitals for the past 24 hrs: Temp Pulse Resp BP 11/07/22 1000 -- 97 -- 135/74 11/07/22 0801 (!) 100.5 ??F (38.1 ??C) 97 18 135/74 11/07/22 0450 98.9 ??F (37.2 ??C) 102 -- 136/72 11/07/22 0014 99.2 ??F (37.3 ??C) 106 -- 130/82 11/06/222122 -- 86 -- (!) 135/101 11/06/22 1953 98.1 ??F (36.7 ??C) 84 18 119/62 Intake/Output Summary (Last 24 hours) at 11/07/2022 1309 Last data filed at 11/07/2022 0801 Gross per 24 hour Intake 1300 ml Output 3400 ml Net -2100 ml Labs: Recent Labs Component Name 10/20/22 0302 06/15/22 0757 CHOL 173 204* TRIG 201* 251* HDL 42 37* LDLCALC 91 117* Recent Labs Component Name 10/20/22 1015 HGBA1C 6.0* Recent Labs Component Name 11/06/22 2312 11/06/22 0136 11/05/22 1124 11/04/228 NA 140 139 139 141 POTASSIUM 3.6 3.5 3.8 3.7 CL 108* 111* 104 106 CO2 22 21* 23 25 BUN 8 8 8 8 CREATININE 0.46* 0.56 0.54* 0.55* CALCIUM 8.5 8.3* 8.5 8.3* MAGNESIUM 2.0 2.0 2.0 2.3 PHOS 4.3 3.6 3.2 3.4 Recent Labs Component Name 11/06/22 2312 11/06/22 0136 11/05/22 1227 11/04/22 2128 WBC 4.7 6.5 7.9 6.9 8.4 HGB 9.3* 10.0* 9.7* 9.7* 10.9* HCT 29.5* 32.8* 30.2* 29.6* 34.6* PLTCOUNT 195 155 247 344 383 RBC 3.20* 3.42* 3.28* 3.24* 3.73* Recent Labs Component Name 11/07/22 0305 11/06/22 2312 11/06/22 1830 11/06/22 0740 11/06/22 0136 11/05/22 1115 11/05/22 0350 PT 18.4* - - - 17.1* - 15.5* INR 1.6 - - - 1.4 - 1.3 PTT - 63.4* 68.6* 97.1* 100.4* - 77.4* - = values in this interval not displayed. Recent Labs Component Name 10/30/22 1333 10/30/22 1259 10/21/22 0801 10/20/22 2246 PH 7.40 7.33* 7.40 7.36 PCO2 39 49* 31* 32* PO2 228* 208* 143* 179* FIO2 - - 30.0 40.0 No data found. Micro: Microbiology Results (Displays last 21 days for this encounter ONLY) Procedure Component Value - Date/Time RESPIRATORY PANEL WITH SARS-COV-2 BY PCR ([facility]) [[id number]] (Normal) Collected: 11/05/22 1310 Lab Status: Final result Specimen: Microbiology from Nasopharyngeal Updated: 11/05/22 1732 Adenovirus PCR Not detected Coronavirus 229E PCR Not detected Coronavirus HKU1 PCR Not detected Coronavirus NL63 PCR Not detected Coronavirus OC43 PCR Not detected COVID-19 PCR Not detected Human Metapneumovirus PCR Not detected Human Rhinovirus/Enterovirus PCR Not detected Influenza A PCR Not detected Influenza B PCR Not detected Parainfluenza Virus 1 PCR Not detected Parainfluenza Virus 2 PCR Not detected Parainfluenza Virus 3 PCR Not detected Parainfluenza Virus 4 PCR Not detected Respiratory Syncytial Virus PCR Not detected Bordetella parapertussis PCR Not detected Bordetella pertussis PCR Not detected Chlamydia pneumoniae PCR Not detected Mycoplasma pneumoniae PCR Not detected Narrative: This nucleic amplification assay has received FDA authorization via the [employer]. CULTURE URINE [[id number]] (Normal) Collected: 11/05/22 1307 Lab Status: Final result Specimen: Urine Cath Straight Updated: 11/06/22 1617 Culture Urine No growth (<100 CFU/mL) CULTURE BLOOD [[id number]] (Normal) Collected: 11/05/22 1054 Lab Status: Preliminary result Specimen: Blood Peripheral Updated: 11/06/22 1400 Culture No growth 24 hours CULTURE URINE [[id number]] (Normal) Collected: 10/27/22 1208 Lab Status: Final result Specimen: Urine Clean Catch Updated: 10/28/22 2236 Culture Urine No growth (<100 CFU/mL) CULTURE BLOOD FUNGUS [[id number]] (Normal) Collected: 10/27/22 1158 Lab Status: Preliminary result Specimen: Blood Peripheral Updated: 11/06/22 0848 Culture No fungus isolated CULTURE BLOOD AFB [[id number]] (Normal) Collected: 10/27/22 1158 Lab Status: Preliminary result Specimen: Blood Peripheral Updated: 11/06/22 1135 Culture No acid-fast bacillus isolated BARTONELLA SPECIES PCR [[id number]] Collected: 10/27/22 115 Lab Status: Final result Specimen: Blood Updated: 11/01/22 1638 Bartonella Source Plasma Bartonella Species by PCR Not Detected Comment: NOT DETECTED - A negative result does not rule out the presence of PCR inhibitors in the patient specimen or assay specific nucleic acid in concentrations below the level of detection by the assay. INTERPRETIVE INFORMATION: Bartonella Species Detection by PCR This test was developed and its performance characteristics determined by [facility]. It has not been cleared or approved by the US Food and Drug Administration. This test was performed in a CLIA certified laboratory and is intended for clinical purposes. Performed By: [facility] [address] [place] [id number] Microfilm Mounter: Boo Bond MD, PhD CLIA Number: [id number] CULTURE BLOOD [[id number]] (Normal) Collected: 10/25/22 0900 Lab Status: Final result Specimen: Blood Peripheral Updated: 10/30/22 1330 Culture No growth day 5 CULTURE BLOOD [[id number]] (Normal) Collected: 10/24/22 1313 Lab Status: Final result Specimen: Blood Peripheral Updated: 10/29/22 1632 Culture No growth day 5 MRSA DNA PCR [[id number]] (Normal) Collected: 10/23/22 1234 Lab Status: Final result Specimen: Microbiology from Nasal Updated: 10/23/22 2044 MRSA DNA by PCR Not detected Narrative: Methicillin-resistant Staphylococcus aureus (MRSA) DNA is not detected (presumed not colonized withMRSA). CULTURE BLOOD [[id number]] (Normal) Collected: 10/23/22 1216 Lab Status: Final result Specimen: Blood Peripheral Updated: 10/28/22 1702 Culture No growth day 5 CULTURE BLOOD [[id number]] (Normal) Collected: 10/23/22 1205 Lab Status: Final result Specimen: Blood Peripheral Updated: 10/28/22 1702 Culture No growth day 5 Length of stay: 19 Problem List Right middle cerebral artery stroke (CMS/HCC) (POA: Unknown) Acute cerebrovascular accident (CVA) due to embolism of right middle cerebral artery (CMS/HCC) (POA: Yes) Nihss score 9 (POA: Yes) Received intravenous tissue plasminogen activator (tPA) in emergency department (POA: Yes) GERD (gastroesophageal reflux disease) (POA: Yes) Hemianopsia (POA: Yes) Weakness (POA: Yes) Left-sided sensory deficit present (POA: Yes) Gaze palsy (POA: Yes) Migraine (POA: Unknown) Hypertension (POA: Unknown) Presence of externally removable percutaneous endoscopic gastrostomy (PEG) tube (CMS/HCC) (POA: Unknown) Present on Admission: ??? Hemianopsia ??? Weakness ??? Left-sided sensory deficit present ??? Gaze palsy ??? Acute cerebrovascular accident (CVA) due to embolism of right middle cerebral artery (CMS/HCC) ??? Nihss score 9 ??? Received intravenous tissue plasminogen activator (tPA) in emergency department ??? GERD (gastroesophageal reflux disease) Routine multidisciplinary rounds were completed today with the presence of the primary team staff, residents, PT/OT/SIGNALING PROJECT ENGINEER and CM/SW. Jaime Drew MD Vascular and Interventional Neurology * Shania Troy, OT - 11/07/2022 11:56 AM CDT [facility] Physical Medicine and Rehabilitation Occupational Therapy Progress Note Patient: Consuelo Darby Med Record Number: [id number] Date of : 1980 Age: [age] year old PPE worn by staff: gloves;mask - surgical services coordinator: Cheli Recommendations: Discharge OT Discharge Recommendations: Patient would benefit from intensive 3-hour multidisciplinary therapy This recommendation is made due to ongoing intensive OT functional needs: not at baseline due to impaired ability to complete ADL's;functional mobility is significantly below baseline;patient demonstrates a significant functional decline and would benefit from skilled therapy intervention to restore function;patient has the ability to progress and demonstrate measurable gains as a result of skilled therapy Recommended Transportation Method: Stretcher/Ambulance Nurse and Physical Therapy contacted regarding patient status and/or discharge plan. Activity Level: up ad bigg PRECAUTIONS: Falls, skin, helmet, SBP <160 SUBJECTIVE: Subjective: Pt nodding head appropriately and giving thumbs up/down to communicate. Pain Assessment: Pain Location #1 Pain Scale/Observation: Numeric (0-10) Pain Rating Score #1: 0 (pt nodding head no to pain) Sedation Level #1: 2-Slightly drowsy, easy to arouse Pain Location : Abdomen Pain Intervention(s): (RN present to administer pain medication during session) OBJECTIVE: At start of therapy session, patient found in bed General Appearance: Pt in semi fowlers upon arrival in [facility], sister present in room during session. LDA: PIV, PEG, puentes catheter Mental Status/Cognition: Level of Consciousness-Adult: Alert Orientation Level: Oriented to Person Cognition: Follows one step commands;Attention/concentration-decreased;Processing-delayed;Judgement- decreased;Safety awareness-decreased Pt requires max verbal and tactile cuing to bring head to midline to identify # of fingers being held up. Pt accurately identifies # of fingers being held up at midline 2/3x via imitating with her R hand. Pt with R gaze preference and R cervical rotation/flexion. Pt requires verbal/tactile cuing to attempt to turn head to L past midline, difficulty with visual tracking to L past midline. Mobility: a gait belt and non-slip socks were used for all out of bed activity this date. Bed Mobility: Supine to Sit: Maximum Assistance;X 2;Requires Verbal Cues for Safety;Requires Verbal Cues for Technique (pt moving RLE over EOB and reaching with RUE) Sit to Supine: Maximum Assistance;X 2;Requires Verbal Cues for Safety;Requires Verbal Cues for Technique Transfers: Sit to Stand: Activity Does Not Occur Stand to Sit: Activity Does Not Occur Balance: Max A for static sitting EOB for 13 min. Pt with lack of postural control and postural sway at EOB. Pt with brief instance of sitting with min A with RUE support via holding OT hand. Activities of Daily Living: Oral Facial Hygiene: Minimal Assistance;Moderate Assistance (to perform oral suctioning) Pt performing BUE lateral weight bearing activity x3 each UE, 5 second holds. Pt demoing triceps and core activation on R to assist with pushing self back to midline, no palpable muscle contraction on L. Splint Issued/Checked: L resting hand and L foot drop. Resting hand splint doffed upon arrival, night wear only. L foot drop splint fitting appropriately, skin integrity intact. ACTIVITY TOLERANCE: Patient's activity tolerance: fair Modified [place]: Current Modified [place] Score: 5 AM-PAC 6 Clicks Daily Activity Raw Score:: 9 TREATMENT/INTERVENTIONS: ADL training Cognitive retraining Functional transfer training Endurance training Bed mobility Energy conservation Safety awareness EDUCATION: While performing OT, Patient and sister was instructed in:functional mobility training, self-care training, cognitive retraining, energy conservation, safety awareness/fall precautions , home exercise program, stroke education and precautions, use of call light Presented to patient who demonstrates Questionable understanding of instructions given. INFORMED CONSENT TO TREATMENT: Plan of care is discussed but patient with questionable understanding. ASSESSMENT: Patient continues to benefit from skilled Occupational Therapy to achieve the following functional goals. Short Term Goals: Goal Formation With patient/family Patient will increase orientation to?person, place, time and situation Patient will perform supine to/from sit??with moderate assist and X 2 Patient will tolerate treatment??20 minutes, with good endurance and with minimal pain Environmental Marketer Goal(s): Patient to discharge to appropriate next level of inpatient care Plan: Patient continues to benefit from skilled therapy services., Continue with goals as established. If patient is discharged from the facility, this note serves as a discharge summary if further occupational therapy visits did not occur. Refer to filed flowsheet for further details. Following therapy session, patient left in bed, with bed alarm on , with call light within reach, with RNJaye aware, with therapy cues visible on white board. * Jerry Leigh SLP - 11/07/2022 10:50 AM CDT [facility] Physical Medicine and Rehabilitation Swallow Treatment Patient: Consuelo Darby Med Record Number: [id number] Date of : 1980 Age: [age] year old PPE: PPE worn by staff: gloves;mask - surgical PPE worn by patient: gown - patient, clean;socks - clean Impressions: Patient's swallow function and communication were assessed at bedside. Patient completed trial of ice chips and puree consistencies. Patient demonstrated severe apraxia and difficultly fully opening oral cavity. Patient demonstrated moderately delayed swallow initiation with ice chip trials and severely delayed swallow initiation with puree trials, which required suctioning to clear.ST recommends continuing with NPO and TFs via PEG at this time. Patient was able to communicate 'YES' via thumbs up several times in order to participate with PO trials today. ST will follow patient to assess safety of swallow function and communication while in hospital. Recommendations: Diet Liquids Recommendation: NPO Diet Solids Recommendation: NPO Recommended Form of Meds: Feeding Tube Recommended Tests/Consults: Recommendations: Dysphagia Treatment Discharge Recommendations: Speech therapy is recommended to improve swallow function. SUBJECTIVE: Patient Goals: No goals at this time Pain Assessment: No pain reported or observed at this time OBJECTIVE: Level of Consciousness: alert Orientation Level: oriented to person Positioning: Upright in bed Respiratory Status: room air Swallow Trials: Ice chips: Presentation: Spoon-Assisted Oral: Increased Anterior to Posterior Transit;Delayed Initiation;Impaired Mastication Pharyngeal: Delayed Swallow;Decreased Laryngeal Elevation Puree: Presentation: Spoon-Assisted Oral: Delayed Initiation;Increased Anterior to Posterior Transit Pharyngeal: Absent Swallow Assessment: Risk For Aspiration: Severe Primary Diagnostic Impression - Oral: Severe Primary Diagnostic Impression - Pharyngeal: Severe Treatment/Education/Interventions: While performing SIGNALING PROJECT ENGINEER, Patient and sister was instructed in: goals of treatment , diet/liquid recommendations, swallowing strategies/aspiration precautions, clinical signs of aspiration and recommendations for NPO status given patient's elevated aspiration risk. Patient demonstrated Good understanding of instructions given. Physician and Nurse contacted regarding results of treatment session. INFORMED CONSENT TO TREATMENT: Plan of care including recommended therapy, goals and frequency, discussed with patient who understands and agrees to proceed. Short Term Goals Patient will tolerate recommended food and liquid consistencies without clinical signs of aspiration., Patient will understand clinical signs of aspiration and aspiration precautions., Patient will follow recommended swallowing strategies. Environmental Marketer Goal (s): Patient to be independent/baseline with functional mobility and self care and be able to safely discharge to prior level of care. Jerry Valle M.A., [facility]-SIGNALING PROJECT ENGINEER Speech Language Pathologist [phone] * Jaye Odell RN - 11/07/2022 9:56 AM CDT Problem: ELOPEMENT/ABDUCTION Goal: Risk for elopement &/or abduction during hospitalization is minimized Outcome: Progressing Problem: Pain/Discomfort Goal: Patient uses pharmacological and non-pharmacological pain management strategies. Outcome: Progressing Goal: Patient verbalizes acceptable level of pain relief and ability to engage in desired activity. Outcome: Progressing Problem: Mobility Goal: Patient's mobility/activity will be maintained as optimum level for age, diagnosis and physical limitations Outcome: Progressing Goal: Continuum of care needs are further met through referral to outpatient services when appropriate. Outcome: Progressing Goal: Patient reports the ability to perform Activities of Daily Living. Outcome: Progressing Problem: Communication Impairment/Dysarthria Goal: Ability to express needs and understand communication Outcome: Progressing Problem: Nutrition Goal: Nutritional status is improving Outcome: Progressing Problem: Glycemic Control Goal: Clinical indication of glycemia balance is achieved Outcome: Progressing Problem: Knowledge Deficit,Education,Discharge Plan Goal: The patient/family will understand cerebrovascular disease and its symptoms, treatment and management Outcome: Progressing Problem: Oral Intake: Inadequate oral intake Goal: Total intake will meet estimated nutrient needs Outcome: Progressing Problem: Swallowing Goal: LTG - Patient will tolerate the least restrictive diet consistency to allow for safe consumption of daily meals Outcome: Progressing Goal: STG - Patient will participate in instrumental assessment of swallowing as appropriate Outcome: Progressing Goal: STG - Patient will tolerate therapeutic trials of recommended consistency without clincial signs and symptoms of aspiration Outcome: Progressing Goal: STG - Patient will tolerate recommended food and liquid consistencies without clinical signs and symptoms of aspiration Outcome: Progressing Goal: STG - Patient will complete swallowing exercises Outcome: Progressing Goal: STG - Patient/family will complete oral motor exercises for improved bolus control Outcome: Progressing Problem: Transfers Goal: STG - Transfer from bed to chair Outcome: Progressing Problem: Risk for Violence: Self-Directed or Other Directed Description: Diagnosis: Risk for self-directed Violence or Risk for Directed Violence Risk Factors: Biochemical/neurologic imbalances, impulsivity, manic excitement, psychotic symptomatology, rage reaction, restlessness Possibly Evidenced By: agitated behaviors, delusional thinking, hallucinations, loud/threatening/profane speech, poor impulse control, provocative behaviors, verbal threats against others, verbal threats against self Goal: Patient will verbalize control of feelings. Outcome: Progressing Goal: Patient will respond to interventions when potential or actual loss of control occurs. Outcome: Progressing Goal: Patient will refrain from provoking others to physical harm. Outcome: Progressing Goal: Patient will display nonviolent behaviors toward others in the hospital, with the aid of medications and nursing interventions. Outcome: Progressing Goal: Patient will seek help when experiencing aggressive impulses. Outcome: Progressing Goal: Patient will refrain from verbal threats and loud, profrane language toward others. Outcome: Progressing Goal: Patient will be safe and free from injury. 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 Found to have right MCA occulusion. .Interventional neurology was consulted and patient underwent diagnostic??catheter??cerebral??angiogram??and revascularization of right MCA occlusion on 10/19/2022. Hospital stay was complicated by developing cerebral edema for which neurosurgery was consulted and patient was taken to the OR for right decompressive hemicraniectomy on 10/20/2022. As part of embolic/ischemic strokework up, patient also underwent SARAH and showed vegetation on aortic side of??left??coronary cusp, negative bubble study, no thrombus in left atrial appendage. 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 Bartonella PCR negative in blood. Patient also underwent to throbectomy on 10/30.Patient started having a high grade fever on 11/03 so ID is re-consulted.??Now on Van, Cefepime and doxy SUBJECTIVE & INTERVAL HISTORY: Patient seen and examined. Tmax 100.5, VSS Resting quietly this morning, relative at bedside Current Abx Van, Cefepime and doxy Inpatient Medications ??? 0.9% NaCl 3 mL Intracatheter q8h ??? acetaminophen 650 mg Enteral Tube q6h ??? atorvastatin 80 mg Enteral Tube AT BEDTIME ??? cefepime 2 g Intravenous q8h ??? doxycycline monohydrate 100 mg Enteral Tube q12h ??? guaiFENesin 10 mL Enteral Tube q12h ??? lansoprazole 30 mg Enteral Tube QDAY BEFORE BREAKFAST ??? loratadine 10 mg Enteral Tube QDAY ??? metoprolol tartrate IR 25 mg Enteral Tube q12h ??? perflutren lipid microsphere 0.5 mL Intravenous intra-Procedure multiple ??? polyethylene glycol 3350 17 g Enteral Tube QDAY ??? potassium chloride 40 mEq Intravenous Once ??? senna-docusate 2 tablet Enteral Tube QDAY ??? tamsulosin 0.4 mg Enteral Tube QDAY ??? vancomycin 1,500 mg Intravenous q8h ??? vancomycin (VANCOCIN) IV dose per pharmacy Does not apply DIRECTED ??? verapamil 40 mg Enteral Tube q8h ??? Vitamin D3 (cholecalciferol) 2,000 Units Enteral Tube QDAY ??? warfarin Other QDay 1700 ??? warfarin 5 mg Enteral Tube once warfarin heparin, 500-2,150 Units/hr, Last Rate: 1,050 Units/hr (11/06/22 1056) PRN Medications ??? SALINE LOCK, INSERT AND MAINTAIN AND 0.9% NaCl AND 0.9% NaCl ??? bisacodyl ??? diphenhydrAMINE-zinc acetate ??? oxyCODONE (immediate release) OBJECTIVE: Vital Signs: BP 135/74 Pulse 97 Temp (!) 100.5 ??F (38.1 ??C) (Axillary) Resp 18 Ht 1.626 m (5' 4 ) Wt95.3 kg (210 lb) SpO2 97% Temp (24hrs), Av.1 ??F (37.3 ??C), Min:98.1 ??F (36.7 ??C), Max:100.5 ??F (38.1 ??C) I/O: Intake/Output Summary (Last 24 hours) at 11/07/2022 0901 Last data filed at 11/07/2022 0450 Gross per 24 hour Intake 1200 ml Output 4400 ml Net -3200 ml Physical Exam: General:??Alert, cooperative, no distress, obese HEENT: NC, AT, EOMI, MMM, Sutures to head cdi Chest wall:??No tenderness or deformity Lungs: Clear to auscultation bilaterally Heart: RRR, S1, S2 normal, no murmur, click, rub or gallop Abdomen: Soft, non-distended, non-tender, +BS Back:??Symmetric, no curvature. ROM normal. No CVA tenderness Extremities:??Atraumatic, no cyanosis or edema Skin:??Skin color, texture, turgor normal. Neurologic: Alert and oriented x 3, grossly intact Psychiatry: Appropriate mood/affect Lines: LABS CBC: Recent Labs Component Name 11/06/22 2312 11/06/22 0136 11/05/22 1227 10/23/22 0129 10/22/22 0153 WBC 4.7 6.5 7.9 6.9 - - RBC 3.20* 3.42* 3.28* 3.24* - - HGB 9.3* 10.0* 9.7* 9.7* - - HCT 29.5* 32.8* 30.2* 29.6* - - MCV 92.2 95.9 92.1 91.4 - - PLT - - - - 199 - = values in this interval not displayed. BMP: Recent Labs Component Name 11/06/22 2312 11/06/22 0136 11/05/22 1124 10/20/22 0302 10/19/22 0824 06/15/22 0757 NA 140 139 139 - 139 138 CL 108* 111* 104 - 108* 107 CO2 22 21* 23 - 21* 23 BUN 8 8 8 - 13 12 CREATININE 0.46* 0.56 0.54* - 0.84 0.74 ALB - - - - 3.5 3.6 PROT - - - - 7.7 7.5 - = values in this interval not displayed. estimated creatinine clearance is 182 mL/min (A) (by C-G formula based on SCr of 0.46 mg/dL (L)). Recent Labs Component Name 10/19/22 0824 06/15/22 0757 12/09/18 0812 ALT 16 9 17 AST 19 17 18 ALKPHOS 52 44 56 TBILI 0.1* 0.1* - Bartonella PCR negative Mycoplasma IGM and IGG negative Chlamydia IGM/IGG negative Q fever IGG,IGM negative Bartonella IGG,IGM negative MICROBIOLOGY: Urine and blood cx with no growth HISTOPATHOLOGY: None at this admission IMAGING & PROCEDURE: Pertinent images independently reviewed; report in chart. 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 Patient was started on vancomycin and ceftriaxone and doxycycline per the previous ID consult and planned to complete4 weeks. Ceftriaxone transitioned to cefepime for fevers. ?? 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 If patient continues to have fevers further infectious work with MRI brain w/ and w/o contrast r/o surgical site infection, also ramirez scan with CT chest abdomen and pelvis with contrast Follow CBC with diff,??BMP ??weekly (at minimum) while on IV antibiotics ?? Alhaji Otoole M.D. Infectious Diseases ?? Associated attestation - Angelica Cruz MD - 11/08/2022 11:42 AM CDT [facility] Infectious Diseases Attending Note Documentation Date/Time: 11/07/2022, 7:32 PM The patient was seen and evaluated with Internal Medicine resident Alhaji Otoole MD. I agree with the findings as described in the note, including the history, interval changes, ROS, examination, objective data interpretation, impression and plan as documented, though specifically I note the followin41 year old female with PMH of HTN, migraine, GERD, presented to [facility] on 10/19/2022 as code stroke due to acute onset left sided weakness, left sided sensory deficits, and dysarthria. Found to have right MCA occulusion. Assessment: 41 year old female with PMH of HTN, migraine, GERD, presented to [facility] on 10/19/2022 as code stroke due to acute onset left sided weakness, left sided sensory deficits, and dysarthria. Found to have right MCA occulusion. On empirical culture negative infective endocarditis treatment. Called back fornew fever. New fever without leukocytosis: Repeated BCx, UCx NGTD; no diarrhea, no signs of pneumonia, no CVC line. Cranial surgical site clean wo signs of infection. If fever persistent, obtain MRI Brain to r/o intra-cranial infction. And obtain CT C/A/P for source work up. 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 DDx - IE, vsLibman-Sacks endocarditis, vs fibroelastoma, vs rheumatic valvular disease (less likely), vs Lambl excrescence (less likely). CT C/A/P w contrast 10/25 for possible source/disseminated infection work up, largely unrevealed. Serology testing for Coxiella, Bartonella, Mycoplasma and Chlamydia for possible culture negative endocarditis, all negative. Empiric antibiotics started 10/25 to cover at least Staphylococcus and Streptococcus, and atypical bacterial infection. On IV vancomycin and ceftriaxone, but doxycycline never started. Spiked fever 11/04, ceftriaxone ->cefepime, and added on doxycycline 11/05, fever curve improving. Will keep the plan for 4 weeks treatment. Cardio-embolic/ischemic stroke: Unusual presentation for this 41-year-old patient with no significant risk factors for CVA. DDx hypercoagulable state, autoimmune disorder, etc. S/p 10/19 with IR underwent diagnostic catheter cerebral angiogram and revascularization of right MCA occlusion. S/p 10/20 with neurosurgery for R sided kfciqq-xotsodt-hglcisks decompressive sonya-craniectomy for treatment of refractory intracranial hypertension. S/p PEG. Renal function: Estimated Creatinine Clearance: 157.9 mL/min (A) (by C-G formula based on SCr of 0.53 mg/dL (L)). Plan/Recommendations: - Continue IV vancomycin, cefepime and doxycycline - Follow TTE. - If fever persistent, obtain MRI Brain, and obtain CT C/A/P for source work up. Thank you for allowing us to participate in the care of this patient. Infectious Diseases will continue to follow along, please call with questions or concerns. Angelica Cruz MD Infectious Diseases Attending * Shania Jha, PharmD - 11/07/2022 8:24 AM CDT ACTIVE CONSULTS TO PHARMACY/DISEASE STATE MONITORING Pharmacy Consult: Warfarin Management ASSESSMENT/PLAN Warfarin Indication for anticoagulation: ischemic stroke due to septic emboli Warfarin schedule prior to this encounter: New start Warfarin Dose History Date INR Dose (mg) Comments 11/03 1.2 5 mg New start with heparin bridge 11/04 1.1 5 mg 11/05 1.3 5 mg 11/06 1.4 5 mg Goal INR: 2.0 - 3.0 Today's INR: Subtherapeutic at 1.6 but increasing towards goal at an appropriate rate Pertinent medications during hospitalization: lansoprazole, cefepime, and doxycycline may increase warfarin concentrations Plan: 1. Warfarin dose: 5 mg X 1 2. Daily INR 3. Bridging therapy with heparin drip 4. Warfarin education completed on 11/06. Subjective/Objective Consuelo Darby is a 42 year old female. The primary encounter diagnosis was Right middle cerebralartery stroke (CMS/HCC). Diagnoses of Weakness, Gaze palsy, Hemianopsia, Left-sided sensory deficitpresent, Dysarthria, At high risk for bleeding after thrombolytic therapy, Acute cerebrovascular accident (CVA) due to embolism of right middle cerebral artery (CMS/HCC), Nihss score 9, Aortic valve vegetation, Occlusion of external iliac artery (CMS/HCC), Cold extremity without peripheral vasculardisease, Acute lower limb ischemia, Leukocytosis, unspecified type, Received intravenous tissue plasminogen activator (tPA) in emergency department, Hypoxia, Ischemia, Primary hypertension, Iliac artery occlusion, right (CMS/HCC), and Presence of externally removable percutaneous endoscopic gastrostomy (PEG) tube (CMS/HCC) were also pertinent to this visit. Height: 5' 4 (162.6 cm) Wt 95.3 kg (210 lb) Body mass index is 36.05 kg/m??. Serum creatinine: 0.55 mg/dL (L) 11/04/222127 Estimated creatinine clearance: 152.2 mL/min (A) * Awilda Li RN - 11/07/2022 5:38 AM CDT Problem: ELOPEMENT/ABDUCTION Goal: Risk for elopement &/or abduction during hospitalization is minimized 11/07/2022 05 by Awilda Li RN Outcome: Progressing 11/07/2022537 by Awilda Li RN Outcome: Progressing Problem: Pain/Discomfort Goal: Patient uses pharmacological and non-pharmacological pain management strategies. 11/07/2022 05 by Awilda Li RN Outcome: Progressing 11/07/2022537 by Awilda Li RN Outcome: Progressing Goal: Patient verbalizes acceptable level of pain relief and ability to engage in desired activity. 11/07/2022537 by Awilda Li RN Outcome: Progressing 11/07/2022537 by Awilda Li RN Outcome: Progressing Problem: Mobility Goal: Patient's mobility/activity will be maintained as optimum level for age, diagnosis and physical limitations 11/07/2022537 by Awilda Li RN Outcome: Progressing 11/07/2022537 by Awilda Li RN Outcome: Progressing Goal: Continuum of care needs are further met through referral to outpatient services when appropriate. 11/07/2022537 by Awilda Li RN Outcome: Progressing 11/07/2022537 by Awilda Li RN Outcome: Progressing Goal: Patient reports the ability to perform Activities of Daily Living. 11/07/2022537 by Awilda Li RN Outcome: Progressing 11/07/2022537 by Awilda Li RN Outcome: Progressing Problem: Communication Impairment/Dysarthria Goal: Ability to express needs and understand communication 11/07/2022537 by Awilda Li RN Outcome: Progressing 11/07/2022537 by Awilda Li RN Outcome: Progressing Problem: Nutrition Goal: Nutritional status is improving 11/07/2022537 by Awilda Li RN Outcome: Progressing 11/07/2022537 by Awilda Li RN Outcome: Progressing Problem: Glycemic Control Goal: Clinical indication of glycemia balance is achieved 11/07/2022537 by Awilda Li RN Outcome: Progressing 11/07/2022537 by Awilda Li RN Outcome: Progressing Problem: Knowledge Deficit,Education,Discharge Plan Goal: The patient/family will understand cerebrovascular disease and its symptoms, treatment and management 11/07/2022537 by Awilda Li RN Outcome: Progressing 11/07/2022537 by Awilda Li RN Outcome: Progressing Problem: Oral Intake: Inadequate oral intake Goal: Total intake will meet estimated nutrient needs 11/07/2022537 by Awilda Li RN Outcome: Progressing 11/07/2022537 by Awilda Li RN Outcome: Progressing Problem: Swallowing Goal: LTG - Patient will tolerate the least restrictive diet consistency to allow for safe consumption of daily meals 11/07/2022537 by Awilda Li RN Outcome: Progressing 11/07/2022537 by Awilda Li RN Outcome: Progressing Goal: STG - Patient will participate in instrumental assessment of swallowing as appropriate 11/07/2022537 by Awilda Li RN Outcome: Progressing 11/07/2022537 by Awilda Li RN Outcome: Progressing Goal: STG - Patient will tolerate therapeutic trials of recommended consistency without clincial signs and symptoms of aspiration 11/07/2022537 by Awilda Li RN Outcome: Progressing 11/07/2022537 by Awilda Li RN Outcome: Progressing Goal: STG - Patient will tolerate recommended food and liquid consistencies without clinical signs and symptoms of aspiration 11/07/2022537 by Awilda Li RN Outcome: Progressing 11/07/2022537 by Awilda Li RN Outcome: Progressing Goal: STG - Patient will complete swallowing exercises 11/07/2022537 by Awilda Li RN Outcome: Progressing 11/07/2022537 by Awilda Li RN Outcome: Progressing Goal: STG - Patient/family will complete oral motor exercises for improved bolus control 11/07/2022537 by Awilda Li RN Outcome: Progressing 11/07/2022537 by Awilda Li RN Outcome: Progressing Problem: Transfers Goal: STG - Transfer from bed to chair 11/07/2022537 by Awilda Li RN Outcome: Progressing 11/07/2022537 by Awilda Li RN Outcome: Progressing Problem: Risk for Violence: Self-Directed or Other Directed Description: Diagnosis: Risk for self-directed Violence or Risk for Directed Violence Risk Factors: Biochemical/neurologic imbalances, impulsivity, manic excitement, psychotic symptomatology, rage reaction, restlessness Possibly Evidenced By: agitated behaviors, delusional thinking, hallucinations, loud/threatening/profane speech, poor impulse control, provocative behaviors, verbal threats against others, verbal threats against self Goal: Patient will verbalize control of feelings. 11/07/2022537 by Awilda Li RN Outcome: Progressing 11/07/2022537 by Awilda Li RN Outcome: Progressing Goal: Patient will respond to interventions when potential or actual loss of control occurs. 11/07/2022537 by Awilda Li RN Outcome: Progressing 11/07/2022 0538 by Awilda Li RN Outcome: Progressing Goal: Patient will refrain from provoking others to physical harm. 11/07/2022 0538 by Awilda Li RN Outcome: Progressing 11/07/2022 0538 by Awilda Li RN Outcome: Progressing Goal: Patient will display nonviolent behaviors toward others in the hospital, with the aid of medications and nursing interventions. Outcome: Progressing Goal: Patient will seek help when experiencing aggressive impulses. Outcome: Progressing Goal: Patient will refrain from verbal threats and loud, profrane language toward others. Outcome: Progressing Goal: Patient will be safe and free from injury. Outcome: Progressing Problem: Skin Integrity Goal: Skin integrity is maintained or improved Outcome: Progressing Problem: Neurological Deficit Goal: Neurological status is stable or improving Outcome: Progressing * Moises Oconnor RN - 11/06/2022 7:40 PM CDT Rapid Response [place] [address] Patient: Consuelo Darby : 1980 Location: Rapid Response Nurse (ALGEBRA TEACHER) continued rounding for follow up of pt's elevated temperature. Pt had a recent hemicraniectomy and ID was consulted and antibiotic regimen adjusted for coverage of endocarditis with possible vegetation. At the time of Night ALGEBRA TEACHER's rounding the pt's temp is 99.1 with all other vital signs within desired limits. There are no other obvious signs of distress and the primary or charge nurse have no other questions at this time. However please feel free to call with any further questions or changes in pt condition No further Rapid Response Nursing needs at this time. Vital Signs: Patient Vitals for the past 6 hrs: Temp Pulse Resp BP BP Method 11/06/222122 -- 86 -- (!) 135/101 -- 11/06/221952 98.1 ??F (36.7 ??C) 84 18 119/62 Automatic Moises Oconnor RN Rapid Response Nurse [id number] * Olga Arroyo MD - 11/06/2022 4:40 PM CDT Stroke Service Daily Progress Note Consuelo Darby Age: [age] year old Date of : 1980 Date of Admission: 10/19/2022 Hospital Day: 18 Subjective Consuelo Darby is a 41yo woman hemiplegic migraine, GERD, GENESIS. who developed acute onset L sided weakness, L-sided sensory deficits, and dysarthria. L sided weakness resolved in route and dysarthria improved in route. On arrival patient noted to hae Amy florez plasy, L hemainopsia, mild dysarthria, andextinction. NIHSS: 7. S/p TNK and TICI2b revascularization of the R MCA M1 occlusion.Repeat CTH showing edema in R MCA territory. On 10/20/22 patient taken for hemicraniectomy, post-op CTH showing stable midline shift. Initial hypercoag work up negative, repeat in 2 months. -10/23- SARAH concerning for aortic cusp vegetations. [...] by GI team while evaluating her for G tube 11/01 CT A/P obtained and no abscess was identified in the abdominal area. Postsurgical changes after vascular surgery. 11/02 GI to take her to OR for G tube. Ready TTF. 11/03 start warfarin bridge 11/04 CT head for headache and eye discomfort after bumping her head on hemicrani site. NSGY aware and evaluated her. CT looks stable. 11/05 had a fever. Infectious workup initiated and ID reconsulted. Plan to broaden spectrum (currently on ceftriaxone + vanc, switch to cefe + vanc + doxycycline ) after blood cultures are taken 11/06: no acute event. On heparin gtt. Warfarin bridge. INR 1.4. Interval History: no acute event. On heparin gtt. Warfarin bridge. INR 1.4. Objective Patient Vitals for the past 24 hrs: BP Temp Temp src Pulse Resp SpO2 Height Weight 11/06/22 1148 132/86 98.9 ??F (37.2 ??C) Oral 88 17 98 % 1.626 m (5' 4 ) 95.3 kg (210 lb) 11/06/22 0813 137/73 98 ??F (36.7 ??C) Oral 90 17 97 % -- -- 11/06/22 0201 -- 98.8 ??F (37.1 ??C) -- -- -- -- -- -- 11/05/22 2339 -- (!) 101.5 ??F (38.6 ??C) Axillary -- -- -- -- -- 11/05/22 2315 156/98 (!) 100.1 ??F (37.8 ??C) -- (!) 110 -- 95 % -- -- 11/05/22 2229 (!) 156/104 -- -- (!) 111 -- -- -- -- Intake/Output Summary (Last 24 hours) at 11/06/2022 1640 Last data filed at 11/06/2022 1035 Gross per 24 hour Intake -- Output 2850 ml Net -2850 ml Exam: Cortical Function Mental Status Awake, alert, follows basic commands Orientation REYNOLD Language No verbal output Visual Powlel Intact bilaterally to confrontation Neglect No visual neglect noted, no tactile neglect noted Cranial Nerves II Pupils 3 mm and bilaterally reactive to light. Fundoscopic exam not performed. VIII Hearing is intact bilaterally to voice. III/IV/ Extraocular muscles intact. No diplopia, ptosis, nystagmus or convergence abnormalities noted. IX/X REYNOLD V REYNOLD XI Head turning and shoulder shrug are intact. VII L facial palsy XII Tongue is midline with normal movements and no atrophy noted. Motor Function Movement No abnormalities noted Bulk No abnormalities noted Tone No abnormalities noted Moves RUE and RLE, tries to withdraw to pain in LUE and LLE Sensory Light Touch REYNOLD Noxious Stimuli Symmetric and intact bilaterally Labs: Recent Labs Component Name 11/06/22 0136 11/05/22 1227 11/04/228 10/23/22 0129 10/22/22 0153 WBC 6.5 7.9 6.9 8.4 - - RBC 3.42* 3.28* 3.24* 3.73* - - HGB 10.0* 9.7* 9.7* 10.9* - - HCT 32.8* 30.2* 29.6* 34.6* - - PLT - - - - 199 - = values in this interval not displayed. Recent Labs Component Name 11/06/22 0136 11/05/22 1124 11/04/222127 NA 139 139 141 CL 111* 104 106 CO2 21* 23 25 BUN 8 8 8 CREATININE 0.56 0.54* 0.55* CALCIUM 8.3* 8.5 8.3* No results for input(s): MG in the last 19410 hours. Recent Labs Component Name 11/06/22 0136 11/05/22 1124 11/04/222127 PHOS 3.6 3.2 3.4 Recent Labs Component Name 11/06/22 0740 11/06/22 0136 11/05/22 1658 11/05/22 1115 11/05/22 0350 11/04/22 0931 11/04/22 0553 PT - 17.1* - - 15.5* - 14.5 INR - 1.4 - - 1.3 - 1.1 PTT 97.1* 100.4* 27.5 - 77.4* - 96.7* - = values in this interval not displayed. No results for input(s): A1C in the last 03893 hours. Recent Labs Component Name 10/20/22 0302 06/15/22 0757 CHOL 173 204* HDL 42 37* LDLCALC 91 117* TRIG 201* 251* Recent Labs Component Name 11/06/22 013 TSH 1.682 No results for input(s): CKMB, CKTOTAL, CKMB, TROPONINI, BNP in the last [address] ANGIO BRAIN NECK STROKE Result Date: 10/19/2022 IMPRESSION: 1. Occlusion of the distal M1 [...] Lonnie Rae MD on 10/19/2022 8:[address] BRAIN - Stroke Result Date: 10/19/2022 IMPRESSION: 1. No acute intracranial hemorrhage. 2. [...] Lonnie Rae MD on 10/19/2022 8:15 AM Right middle cerebral artery stroke (CMS/HCC) (POA: Unknown) Acute cerebrovascular accident (CVA) due to embolism of right middle cerebral artery (CMS/HCC) (POA: Yes) Nihss score 9 (POA: Yes) Received intravenous tissue plasminogen activator (tPA) in emergency department (POA: Yes) GERD (gastroesophageal reflux disease) (POA: Yes) Hemianopsia (POA: Yes) Weakness (POA: Yes) Left-sided sensory deficit present (POA: Yes) Gaze palsy (POA: Yes) Migraine (POA: Unknown) Hypertension (POA: Unknown) Presence of externally removable percutaneous endoscopic gastrostomy (PEG) tube (CMS/HCC) (POA: Unknown) Assessment ??Consuelo Darby is a 41 year old female who presented on 10/19 with Right MCA syndrome s/p TNK. CTA 1 M1 occlusion. S/P mechanical thrombectomy with R M1 recanalization and TICI2b. CT 10/20/22 with edema and mild shift. S/P decompressive right hemicraniectomy. Echo showed a mobile aortic valve vege tation. MRI brain with scattered cortical R hemisphere infarcts with petechiae. ?? Stroke Type: Ischemic Stroke Mechanism: Cardioembolic ?? 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 R illiac and common femoral artery occlusion - s/p R common femoral thrombectomy and patch angioplasty by vasc surgery ?? HTN - home metop Blood Pressure Goals: SBP <160, map >70 Vit D deficiency - Vit D 2,000 U daily Individual Modifiable Risk Factors Hypertension: no Hyperlipidemia: no Diabetes: no Atrial Fibrillation: no Tobacco: no Olga Arroyo MD Neurology Resident * Maru Mcduffie RN - 11/06/2022 3:24 PM CDT Care Coordination Progress Note Anticipated level of care at discharge: Acute Rehab Facility: Anticipated level of care provider: None: Anticipated Discharge Date: 11/08/22: Discharge Plan: [facility] once medically ready. SW following. On warfarin bridge now. Developed fever- consulted ID, broaden abx, Cxs, Ddimer, TSH Orientation Level: Unable to Obtain;Other (Comment) (Patient was more alert this date. Patient awares surrounding and responded to the question by gesture.): Family Support (Name and Phone): Extended Emergency Contact Information Primary Emergency Contact: MehnazHi Address: [address] [place] [address] [place] [address] [facility] Relation: Spouse Secondary Emergency Contact: Sandra Disla [facility] Mobile Relation: Mother Transportation at Discharge: Ambulance: READMISSION RISK SCORE is 16 at 3:24 PM 11/06/2022.: Name: Maru Mcduffie RN [id number] * Shania Troy OT - 11/06/2022 3:[address] [facility] Occupational Therapy Splint Check Note Patient Name Consuelo Darby Date of 1980 Age [age] year old Type of Splint: L resting hand and L foot drop Splint Issued by: Not applicable-follow up visit Splint Check Completed: No issues noted. Skin intact and splint fitting appropriately. Visitor at bedside educated on pt need to only wear resting hand splint at night. Resting hand splint doffed. Treatment Plan: Patient/Family education completed. and Will continue to monitor splint while patient in hospital. 11/06/2022 * Jaime Drew MD - 11/06/2022 3:07 PM CDT The above note was reviewed. The patient was seen and examined. I would add the following: I saw and examined the patient with the resident and/or medical student and/or nurse practitioner. I have verified all details of the note and agree with his/her documentation with additions and modifications as listed in my separate note. Please refer to the resident's, medical student's, or nursepractitioner's note for plans of active problems not discussed in this note. 42F p/w M1 occlusion s/p TNK and MT and TICI2b revascularization. TTE showed mobile aortic valve vegetation. Developed MCA syndrome s/p hemicrani. MT c/b R iliac and common femoral a. occlusion s/p thrombectomy. On warfarin bridge now. Developed fever- consulted ID, broaden abx, Cxs, Ddimer, TSH MEDICATIONS FOR CURRENT ENCOUNTER: SCHEDULED MEDICATIONS: 0.9% NaCl injection 3 mL, Intracatheter, q8h acetaminophen (Tylenol) tablet 650 mg, Enteral Tube, q6h atorvastatin (Lipitor) tablet 80 mg, Enteral Tube, AT BEDTIME cefepime (Maxipime) 2,000 mg in 0.9% NaCl IV 50 mL IVPB, Intravenous, q8h doxycycline monohydrate capsule 100 mg, Enteral Tube, q12h guaiFENesin (Robitussin) solution 10 mL, Enteral Tube, q12h lansoprazole (Prevacid) suspension 30 mg, Enteral Tube, QDAY BEFORE BREAKFAST loratadine (Claritin) tablet 10 mg, Enteral Tube, QDAY metoprolol tartrate IR (Lopressor) tablet 25 mg, Enteral Tube, q12h perflutren lipid microsphere (Definity) injection 0.5 mL, Intravenous, intra- Procedure multiple polyethylene glycol 3350 (Miralax) packet 17 g, Enteral Tube, QDAY senna-docusate (Senokot-S) tablet 2 tablet, Enteral Tube, QDAY tamsulosin (Flomax) capsule 0.4 mg, Enteral Tube, QDAY vancomycin (Vancocin) 1,500 mg in 500 mL NaCl IVPB Premix, Intravenous, q8h vancomycin (Vancocin) IV dose per pharmacy, Does not apply, DIRECTED verapamil (Isoptin) tablet 40 mg, Enteral Tube, q8h vitamin D3 (Cholecalciferol) 25 MCG (1000 UNITS) tablet 2,000 Units, Enteral Tube, QDAY warfarin (Coumadin) dose per pharmacy, Other, QDay 1700 warfarin (Coumadin) tablet 5 mg, Enteral Tube, once warfarin [COMPLETED] 0.9% NaCl IV bolus, Intravenous, Once [COMPLETED] diphenhydrAMINE (Benadryl) injection 25 mg, Intravenous, Once [COMPLETED] ketorolac (Toradol) injection 15 mg, Intravenous, Once [COMPLETED] magnesium sulfate 1 g in 100 mL bolus, Intravenous, Once [COMPLETED] potassium chloride 40 mEq in 270 mL bolus, Intravenous, Once [COMPLETED] prochlorperazine (Compazine) injection 10 mg, Intravenous, Once [COMPLETED] warfarin (Coumadin) tablet 5 mg, Enteral Tube, once warfarin ?? [COMPLETED] nnfmc-uvu-gfjvrjdu (HOG) enema 360 mL, Rectal, Once CONTINUOUS MEDICATIONS: ?? heparin 100 units/mL in dextrose 5 % infusion, Intravenous, Continuous PRN MEDICATIONS: 0.9% NaCl injection 3 mL, Intracatheter, PRN bisacodyl (Dulcolax) suppository 10 mg, Rectal, QDAY PRN diphenhydrAMINE-zinc acetate (Benadryl Extra Strength) 2-0.1 % cream, Topical, PRN ?? oxyCODONE (immediate release) (Roxicodone) tablet 5 mg, Enteral Tube, q6h PRN Patient Vitals for the past 24 hrs: Temp Pulse Resp BP 11/06/22 1148 98.9 ??F (37.2 ??C) 88 17 132/86 11/06/22 0813 98 ??F (36.7 ??C) 90 17 137/73 11/06/22 0201 98.8 ??F (37.1 ??C) -- -- -- 11/05/22 2339 (!) 101.5 ??F (38.6 ??C) -- -- -- 11/05/22 2315 (!) 100.1 ??F (37.8 ??C) (!) 110 -- 156/98 11/05/22 2229 -- (!) 111 -- (!) 156/104 Intake/Output Summary (Last 24 hours) at 11/06/2022 1507 Last data filed at 11/06/2022 1035 Gross per 24 hour Intake -- Output 2850 ml Net -2850 ml Labs: Recent Labs Component Name 10/20/22 0302 06/15/22 0757 CHOL 173 204* TRIG 201* 251* HDL 42 37* LDLCALC 91 117* Recent Labs Component Name 10/20/22 1015 HGBA1C 6.0* Recent Labs Component Name 11/06/22 0136 11/05/22 1124 11/04/22 2128 11/04/22 0553 NA 139 139 141 139 POTASSIUM 3.5 3.8 3.7 3.6 CL 111* 104 106 104 CO2 21* 23 25 25 BUN 8 8 8 9 CREATININE 0.56 0.54* 0.55* 0.56 CALCIUM 8.3* 8.5 8.3* 8.6 MAGNESIUM 2.0 2.0 2.3 2.0 PHOS 3.6 3.2 3.4 3.8 Recent Labs Component Name 11/06/22 0136 11/05/22 1227 11/04/22 2128 11/02/22 2221 WBC 6.5 7.9 6.9 8.4 13.3* HGB 10.0* 9.7* 9.7* 10.9* 10.3* HCT 32.8* 30.2* 29.6* 34.6* 32.0* PLTCOUNT 155 247 344 383 405* RBC 3.42* 3.28* 3.24* 3.73* 3.44* Recent Labs Component Name 11/06/22 0740 11/06/22 0136 11/05/22 1658 11/05/22 1115 11/05/22 0350 11/04/22 0931 11/04/22 0553 PT - 17.1* - - 15.5* - 14.5 INR - 1.4 - - 1.3 - 1.1 PTT 97.1* 100.4* 27.5 - 77.4* - 96.7* - = values in this interval not displayed. Recent Labs Component Name 10/30/22 1333 10/30/22 1259 10/21/22 0801 10/20/22 2246 PH 7.40 7.33* 7.40 7.36 PCO2 39 49* 31* 32* PO2 228* 208* 143* 179* FIO2 - - 30.0 40.0 No data found. Micro: Microbiology Results (Displays last 21 days for this encounter ONLY) Procedure Component Value - Date/Time RESPIRATORY PANEL WITH SARS-COV-2 BY PCR ([facility]) [[id number]] (Normal) Collected: 11/05/22 1310 Lab Status: Final result Specimen: Microbiology from Nasopharyngeal Updated: 11/05/22 1732 Adenovirus PCR Not detected Coronavirus 229E PCR Not detected Coronavirus HKU1 PCR Not detected Coronavirus NL63 PCR Not detected Coronavirus OC43 PCR Not detected COVID-19 PCR Not detected Human Metapneumovirus PCR Not detected Human Rhinovirus/Enterovirus PCR Not detected Influenza A PCR Not detected Influenza B PCR Not detected Parainfluenza Virus 1 PCR Not detected Parainfluenza Virus 2 PCR Not detected Parainfluenza Virus 3 PCR Not detected Parainfluenza Virus 4 PCR Not detected Respiratory Syncytial Virus PCR Not detected Bordetella parapertussis PCR Not detected Bordetella pertussis PCR Not detected Chlamydia pneumoniae PCR Not detected Mycoplasma pneumoniae PCR Not detected Narrative: This nucleic amplification assay has received FDA authorization via the [employer]. CULTURE URINE [[id number]] Collected: 11/05/22 1307 Lab Status: In process Specimen: Urine Cath Straight Updated: 11/05/22 1341 CULTURE BLOOD [[id number]] (Normal) Collected: 11/05/22 1054 Lab Status: Preliminary result Specimen: Blood Peripheral Updated: 11/06/22 1400 Culture No growth 24 hours CULTURE URINE [[id number]] (Normal) Collected: 10/27/22 1208 Lab Status: Final result Specimen: Urine Clean Catch Updated: 10/28/22 2236 Culture Urine No growth (<100 CFU/mL) CULTURE BLOOD FUNGUS [[id number]] (Normal) Collected: 10/27/22 1158 Lab Status: Preliminary result Specimen: Blood Peripheral Updated: 11/06/22 0848 Culture No fungus isolated CULTURE BLOOD AFB [[id number]] (Normal) Collected: 10/27/22 115 Lab Status: Preliminary result Specimen: Blood Peripheral Updated: 11/06/22 1135 Culture No acid-fast bacillus isolated BARTONELLA SPECIES PCR [[id number]] Collected: 10/27/22 115 Lab Status: Final result Specimen: Blood Updated: 11/01/22 1638 Bartonella Source Plasma Bartonella Species by PCR Not Detected Comment: NOT DETECTED - A negative result does not rule out the presence of PCR inhibitors in the patient specimen or assay specific nucleic acid in concentrations below the level of detection by the assay. INTERPRETIVE INFORMATION: Bartonella Species Detection by PCR This test was developed and its performance characteristics determined by [facility]. It has not been cleared or approved by the [place] Food and Drug Administration. This test was performed in a CLIA certified laboratory and is intended for clinical purposes. Performed By: [facility] [address] [place] [id number] Microfilm Mounter: Boo Bond MD, PhD CLIA Number: [id number] CULTURE BLOOD [[id number]] (Normal) Collected: 10/25/22 0900 Lab Status: Final result Specimen: Blood Peripheral Updated: 10/30/22 1330 Culture No growth day 5 CULTURE BLOOD [[id number]] (Normal) Collected: 10/24/22 1313 Lab Status: Final result Specimen: Blood Peripheral Updated: 10/29/22 1632 Culture No growth day 5 MRSA DNA PCR [[id number]] (Normal) Collected: 10/23/22 1234 Lab Status: Final result Specimen: Microbiology from Nasal Updated: 10/23/22 2044 MRSA DNA by PCR Not detected Narrative: Methicillin-resistant Staphylococcus aureus (MRSA) DNA is not detected (presumed not colonized withMRSA). CULTURE BLOOD [[id number]] (Normal) Collected: 10/23/22 1216 Lab Status: Final result Specimen: Blood Peripheral Updated: 10/28/22 1702 Culture No growth day 5 CULTURE BLOOD [[id number]] (Normal) Collected: 10/23/22 1205 Lab Status: Final result Specimen: Blood Peripheral Updated: 10/28/22 1702 Culture No growth day 5 Length of stay: 18 Problem List Right middle cerebral artery stroke (CMS/HCC) (POA: Unknown) Acute cerebrovascular accident (CVA) due to embolism of right middle cerebral artery (CMS/HCC) (POA: Yes) Nihss score 9 (POA: Yes) Received intravenous tissue plasminogen activator (tPA) in emergency department (POA: Yes) GERD (gastroesophageal reflux disease) (POA: Yes) Hemianopsia (POA: Yes) Weakness (POA: Yes) Left-sided sensory deficit present (POA: Yes) Gaze palsy (POA: Yes) Migraine (POA: Unknown) Hypertension (POA: Unknown) Presence of externally removable percutaneous endoscopic gastrostomy (PEG) tube (CMS/HCC) (POA: Unknown) Present on Admission: ??? Hemianopsia ??? Weakness ??? Left-sided sensory deficit present ??? Gaze palsy ??? Acute cerebrovascular accident (CVA) due to embolism of right middle cerebral artery (CMS/HCC) ??? Nihss score 9 ??? Received intravenous tissue plasminogen activator (tPA) in emergency department ??? GERD (gastroesophageal reflux disease) Routine multidisciplinary rounds were completed today with the presence of the primary team staff, residents, PT/OT/SIGNALING PROJECT ENGINEER and CM/SW. Jaime Drew MD Vascular and Interventional Neurology * Shania Jha, PharmD - 11/06/2022 1:55 PM CDT ACTIVE CONSULTS TO PHARMACY/DISEASE STATE MONITORING Pharmacy Consult: Warfarin Management ASSESSMENT/PLAN Warfarin Indication for anticoagulation: ischemic stroke due to septic emboli Warfarin schedule prior to this encounter: New start Warfarin Dose History Date INR Dose (mg) Comments 11/03 1.2 5 mg New start with heparin bridge 11/04 1.1 5 mg 11/05 1.3 5 mg Goal INR: 2.0 - 3.0 Today's INR: Subtherapeutic at 1.4 Pertinent medications during hospitalization: lansoprazole, cefepime, and doxycycline may increase warfarin concentrations Plan: 1. Warfarin dose: 5 mg X 1 2. Daily INR 3. Bridging therapy with heparin drip 4. Warfarin education completed today, 11/06. Subjective/Objective Consuelo Darby is a 42 year old female. The primary encounter diagnosis was Right middle cerebralartery stroke (CMS/HCC). Diagnoses of Weakness, Gaze palsy, Hemianopsia, Left-sided sensory deficitpresent, Dysarthria, At high risk for bleeding after thrombolytic therapy, Acute cerebrovascular accident (CVA) due to embolism of right middle cerebral artery (CMS/HCC), Nihss score 9, Aortic valve vegetation, Occlusion of external iliac artery (CMS/HCC), Cold extremity without peripheral vasculardisease, Acute lower limb ischemia, Leukocytosis, unspecified type, Received intravenous tissue plasminogen activator (tPA) in emergency department, Hypoxia, Ischemia, Primary hypertension, Iliac artery occlusion, right (CMS/HCC), and Presence of externally removable percutaneous endoscopic gastrostomy (PEG) tube (CMS/HCC) were also pertinent to this visit. Height: 5' 4 (162.6 cm) Wt 95.3 kg (210 lb) Body mass index is 36.05 kg/m??. Serum creatinine: 0.55 mg/dL (L) 11/04/222127 Estimated creatinine clearance: 152.2 mL/min (A) * Zeinab Vargas RN - 11/06/2022 1:32 PM CDT Problem: ELOPEMENT/ABDUCTION Goal: Risk for elopement &/or abduction during hospitalization is minimized Outcome: Progressing Problem: Skin Integrity Goal: Skin integrity is maintained or improved Outcome: Progressing Problem: Pain/Discomfort Goal: Patient uses pharmacological and non-pharmacological pain management strategies. Outcome: Progressing Goal: Patient verbalizes acceptable level of pain relief and ability to engage in desired activity. Outcome: Progressing Problem: Mobility Goal: Patient's mobility/activity will be maintained as optimum level for age, diagnosis and physical limitations Outcome: Progressing Goal: Continuum of care needs are further met through referral to outpatient services when appropriate. Outcome: Progressing Goal: Patient reports the ability to perform Activities of Daily Living. Outcome: Progressing Problem: Communication Impairment/Dysarthria Goal: Ability to express needs and understand communication Outcome: Progressing Problem: Nutrition Goal: Nutritional status is improving Outcome: Progressing Problem: Glycemic Control Goal: Clinical indication of glycemia balance is achieved Outcome: Progressing * Shania Jha, PharmD - 11/06/2022 1:01 PM CDT Pharmacy Warfarin Education Warfarin education and booklet provided to patient and patient's family. Discussed all major counseling topics including: Indication for warfarin therapy and importance of taking warfarin as prescribed. Importance of monitoring warfarin with scheduled PT/INR blood draws. Diet and medications can affect the PT/INR level. Effects of dietary vitamin K on warfarin therapy and importance of consistent intake of foods with vitamin K. Avoidance of major changes in diet or consulting a health healthcare market consultant before changes are made. Potential for other medications to interact with warfarin therapy and advised not to take start or discontinue any medication or [id number] medication without the advice of their health healthcare market consultant. Signs and symptoms of bleeding were explained as warfarin increases the risk of bleeding. Gave written documentation to have INR checked 1 to 5 days of discharge. The patient and her family (, Father, and Aunt) verbalized understanding. Opportunities for questions provided. Jonah Montana, ManuelD Candidate 2023 Shania Jha PharmD 11/06/2022 12:59 PM Department of Pharmacy, Ext: [phone] * Ankit Spivey - 11/06/2022 11:38 AM CDT [facility] Physical Medicine and Rehabilitation Physical Therapy Progress Note Patient: Consuelo Darby Med Record Number: [id number] Date of : 1980 Age: [age] year old PPE worn by staff: gloves;mask - procedural PPE worn by patient: gown - patient, clean;socks - clean Tech: Cheli; PT:Rosa Recommendations: Discharge PT Discharge Recommendations: Patient would benefit from intensive 3-hour multidisciplinary therapy This recommendation is made due to ongoing intensive PT functional needs: patient demonstrates a significant functional decline and would benefit from skilled therapy intervention to restore function;patient has the need for more than one skilled therapy service SUBJECTIVE: Subjective: Patient was agreeable to PT treatment by giving thumbs up.Patient denied pain, SOB and dizziness. Pain Assessment: Pain Location #1 Pain Scale/Observation: Faces;Behaviors Pain Rating Score #1: 6 Sedation Level #1: 1-Awake and alert Pain Location : Abdomen Relieved By: Rest Pain Intervention(s): Non-pharmacological (RN aware) Non-pharmacological interventions: Rest Behaviors/Assumed Pain Present : Calm PRECAUTIONS: Weight Bearing Status: (no restrictions) Activity Level: Activity as Tolerated Other Precautions: fall OBJECTIVE: At start of therapy session, patient found in bed and with no alarm General Appearance: adult female, in NAD LDAs: IV's: Peripheral line, Catheter and PEG Tube Vitals: (*Assess the 3 levels of oxygen saturations both for room air and 02 unless rest on room air is 88% or less). Rest BP: 132/86 HR: 90 Sp02 98% Room Air Observations: Patient denied dizziness and SOB. Mental Status/Cognition: Level of Consciousness-Adult: Alert;Eyes Open Spontaneously Orientation Level: Unable to Obtain;Other (Comment) (Patient was more alert this date. Patient awares surrounding and responded to the question by gesture.) Cognition: Processing-Appropriate;Judgement-decreased;Safety awareness- decreased;Follows one step commands Mobility: A gait belt and non-slip socks were used for all out of bed activity this date. Bed Mobility: Rolling: Moderate Assistance to Right;Moderate Assistance to Left;Requires Verbal Cues for Safety;Requires Physical Cues for Safety;Other (Comment) (helmet donned in supine before movements) Supine to Sit: Activity Does Not Occur Sit to Supine: Activity Does Not Occur Transfers: Sit to Stand: Activity Does Not Occur Stand to Sit: Activity Does Not Occur Bed to Chair: Total Assistance;X 3 Type of Transfer: Lateral Transfer;Other (Comment) (supine bed to neuro chair) Balance: Sitting - Static: Fair -;With Both Upper Extremity's Support Sitting - Dynamic: Poor +;With Both Upper Extremity's Support ACTIVITY TOLERANCE: Patient's activity tolerance: fair. TREATMENT/INTERVENTIONS: bed mobility training, transfer training, balance activities, monitoring of vitals and cognitive stimulation Modified [place]: Current Modified [place] Score: 5 AM-PAC 6 Clicks Mobility Raw Score:: 7 EDUCATION: While performing PT, Patient was instructed in:functional mobility training, self-care training, cognitive retraining, energy conservation, safety awareness/fall precautions , discharge planning, use of call light Presented to patient who demonstrates Good understanding of instructions given. ASSESSMENT: Patient would benefit from additional Physical Therapy sessions to achieve the following functionalgoals to enhance independence. Short Term Goals: Goal Formation?Patient unable to participate in goal formulation Patient will perform bed mobility??with moderate assist Patient will transfer bed to/from chair??with maximal assist Patient will sit EOB x10 minutes with minimal assist ?? Environmental Marketer Goal(s): Patient to discharge to appropriate next level of inpatient care. INFORMED CONSENT TO TREATMENT: Plan of care including recommended therapy, goals and frequency, discussed with patient who understands and agrees to proceed. Equipment Issued: gait belt Plan: Patient continues to benefit from skilled therapy services. If patient is discharged from the facility, this note serves as a discharge summary if further physical therapy visits did not occur. Refer to filed flowsheet for further details. Following therapy session, patient left in [employer] [employer] chair , with call light within reach, withfamily in room, with RN in room, with therapy cues visible on white board, helmet and seat belt on. 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 Found to have right MCA occulusion. .Interventional neurology was consulted and patient underwent diagnostic??catheter??cerebral??angiogram??and revascularization of right MCA occlusion on 10/19/2022. Hospital stay was complicated by developing cerebral edema for which neurosurgery was consulted and patient was taken to the OR for right decompressive hemicraniectomy on 10/20/2022. As part of embolic/ischemic strokework up, patient also underwent SARAH and showed vegetation on aortic side of??left??coronary cusp, negative bubble study, no thrombus in left atrial appendage. 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 Bartonella PCR negative in blood. Patient also underwent to throbectomy on 10/30.Patient started having a high grade fever on 11/03 so ID is re-consulted. Now on Van, Cefepime and doxy SUBJECTIVE & INTERVAL HISTORY: Tmax of 101.5 Urine and blood cx with no growth Inpatient Medications ??? 0.9% NaCl 3 mL Intracatheter q8h ??? acetaminophen 650 mg Enteral Tube q6h ??? atorvastatin 80 mg Enteral Tube AT BEDTIME ??? cefepime 2 g Intravenous q8h ??? doxycycline monohydrate 100 mg Enteral Tube q12h ??? guaiFENesin 10 mL Enteral Tube q12h ??? lansoprazole 30 mg Enteral Tube QDAY BEFORE BREAKFAST ??? loratadine 10 mg Enteral Tube QDAY ??? metoprolol tartrate IR 25 mg Enteral Tube q12h ??? polyethylene glycol 3350 17 g Enteral Tube QDAY ??? potassium chloride 40 mEq Intravenous Once ??? senna-docusate 2 tablet Enteral Tube QDAY ??? tamsulosin 0.4 mg Enteral Tube QDAY ??? vancomycin 1,500 mg Intravenous q8h ??? vancomycin (VANCOCIN) IV dose per pharmacy Does not apply DIRECTED ??? verapamil 40 mg Enteral Tube q8h ??? Vitamin D3 (cholecalciferol) 2,000 Units Enteral Tube QDAY ??? warfarin Other QDay 1700 heparin, 500-2,150 Units/hr, Last Rate: 1,250 Units/hr (11/06/22 0342) PRN Medications ??? SALINE LOCK, INSERT AND MAINTAIN AND 0.9% NaCl AND 0.9% NaCl ??? bisacodyl ??? diphenhydrAMINE-zinc acetate ??? oxyCODONE (immediate release) OBJECTIVE: Vital Signs: BP 137/73 Pulse 90 Temp 98 ??F (36.7 ??C) Resp 18 Ht 1.626 m (5' 4 ) Wt 95.3 kg (210 lb) SpO2 97% Temp (24hrs), Av.6 ??F (38.1 ??C), Min:98 ??F (36.7 ??C), Max:103 ??F (39.4 ??C) I/O: Intake/Output Summary (Last 24 hours) at 11/06/2022 0925 Last data filed at 11/06/2022 0557 Gross per 24 hour Intake -- Output 1850 ml Net -1850 ml Physical Exam: General: Alert, cooperative, no distress, obese HEENT: NC, AT, EOMI, MMM Chest wall: No tenderness or deformity Lungs: Clear to auscultation bilaterally Heart: RRR, S1, S2 normal, no murmur, click, rub or gallop Abdomen: Soft, non-distended, non-tender, +BS Back: Symmetric, no curvature. ROM normal. No CVA tenderness Extremities: Atraumatic, no cyanosis or edema Skin: Skin color, texture, turgor normal. Neurologic: Alert and oriented x 3, grossly intact Psychiatry: Appropriate mood/affect Lines: LABS CBC: Recent Labs Component Name 11/06/22 0136 11/05/22 1227 11/04/22 2128 10/23/22 0129 10/22/22 0153 WBC 6.5 7.9 6.9 8.4 - - RBC 3.42* 3.28* 3.24* 3.73* - - HGB 10.0* 9.7* 9.7* 10.9* - - HCT 32.8* 30.2* 29.6* 34.6* - - MCV 95.9 92.1 91.4 92.8 - - PLT - - - - 199 - = values in this interval not displayed. BMP: Recent Labs Component Name 11/06/22 0136 11/05/22 1124 11/04/22 2128 10/20/22 0302 10/19/22 0824 06/15/22 0757 NA 139 139 141 - 139 138 CL 111* 104 106 - 108* 107 CO2 23 25 - * BUN 8 8 8 - 13 12 CREATININE 0.56 0.54* 0.55* - 0.84 0.74 ALB - - - - 3.5 3.6 PROT - - - - 7.7 7.5 - = values in this interval not displayed. estimated creatinine clearance is 149.5 mL/min (by C-G formula based on SCr of 0.56 mg/dL). Recent Labs Component Name 10/19/22 0824 06/15/22 0757 12/09/18 0812 ALT 16 9 17 AST 19 17 18 ALKPHOS 52 44 56 TBILI 0.1* 0.1* - Bartonella PCR negative Mycoplasma IGM and IGG negative Chlamydia IGM/IGG negative Q fever IGG,IGM negative Bartonella IGG,IGM negative ?? MICROBIOLOGY: Urine and blood cx with no growth HISTOPATHOLOGY: None at this admission IMAGING & PROCEDURE: Pertinent images independently reviewed; report in chart. 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 Patient was started on vancomycin and ceftriaxone and doxycycline per the previous ID consult and planned to complete4 weeks. Ceftriaxone transitioned to cefepime for fevers. 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 Awaiting TTE to evaluate the size of vegetation. Follow CBC with diff, BMP weekly (at minimum) while on IV antibiotics ?? Alhaji Otoole M.D. Infectious Diseases Associated attestation - Angelica Cruz MD - 11/07/2022 8:57 PM CDT [facility] Infectious Diseases Attending Note Documentation Date/Time: 11/06/2022, 9:14 PM The patient was seen and evaluated with Internal Medicine resident Alhaji Ootole M.D. I agree with the findings as described in the note, including the history, interval changes, ROS, examination, objective data interpretation, impression and plan as documented. Angelica Cruz MD Infectious Diseases Attending * Zenia Heath - 11/06/2022 9:12 AM CDT Discharge building superintendent received request from to schedule a follow up appointment with CT Scan. This internal communications writer sent a request via [facility] to [facility] to assist with scheduling an appointment. The patient's chart will be updated once an appointment has been made. The patient will continued to be followed for their discharge planning needs. 11/06/2022 Zenia Heath 3 * Melany Cali RN - 11/06/2022 8:32 AM CDT Rapid Response Nurse Rounding Note [address] [address] Patient: Consuelo Darby : 1980 Location: Rapid Response Team evaluated patient during morning rounds. Patient awake with visitor at bedside.VSS. Temp this morning 98 degrees. No acute concerns per charge or primary RN at this time. Will continue to follow Vital Signs: No data found. Melany Cali RN Rapid Response Nurse [phone] * Awilda Li RN - 11/06/2022 6:47 AM CDT Problem: ELOPEMENT/ABDUCTION Goal: Risk for elopement &/or abduction during hospitalization is minimized Outcome: Progressing Problem: Pain/Discomfort Goal: Patient uses pharmacological and non-pharmacological pain management strategies. Outcome: Progressing Goal: Patient verbalizes acceptable level of pain relief and ability to engage in desired activity. Outcome: Progressing Problem: Mobility Goal: Patient's mobility/activity will be maintained as optimum level for age, diagnosis and physical limitations Outcome: Progressing Goal: Continuum of care needs are further met through referral to outpatient services when appropriate. Outcome: Progressing Goal: Patient reports the ability to perform Activities of Daily Living. Outcome: Progressing Problem: Communication Impairment/Dysarthria Goal: Ability to express needs and understand communication Outcome: Progressing Problem: Nutrition Goal: Nutritional status is improving Outcome: Progressing Problem: Glycemic Control Goal: Clinical indication of glycemia balance is achieved Outcome: Progressing Problem: Knowledge Deficit,Education,Discharge Plan Goal: The patient/family will understand cerebrovascular disease and its symptoms, treatment and management Outcome: Progressing Problem: Oral Intake: Inadequate oral intake Goal: Total intake will meet estimated nutrient needs Outcome: Progressing Problem: Swallowing Goal: LTG - Patient will tolerate the least restrictive diet consistency to allow for safe consumption of daily meals Outcome: Progressing Goal: STG - Patient will participate in instrumental assessment of swallowing as appropriate Outcome: Progressing Goal: STG - Patient will tolerate therapeutic trials of recommended consistency without clincial signs and symptoms of aspiration Outcome: Progressing Goal: STG - Patient will tolerate recommended food and liquid consistencies without clinical signs and symptoms of aspiration Outcome: Progressing Goal: STG - Patient will complete swallowing exercises Outcome: Progressing Goal: STG - Patient/family will complete oral motor exercises for improved bolus control Outcome: Progressing Problem: Transfers Goal: STG - Transfer from bed to chair Outcome: Progressing Problem: Risk for Violence: Self-Directed or Other Directed Description: Diagnosis: Risk for self-directed Violence or Risk for Directed Violence Risk Factors: Biochemical/neurologic imbalances, impulsivity, manic excitement, psychotic symptomatology, rage reaction, restlessness Possibly Evidenced By: agitated behaviors, delusional thinking, hallucinations, loud/threatening/profane speech, poor impulse control, provocative behaviors, verbal threats against others, verbal threats against self Goal: Patient will verbalize control of feelings. Outcome: Progressing Goal: Patient will respond to interventions when potential or actual loss of control occurs. Outcome: Progressing Goal: Patient will refrain from provoking others to physical harm. Outcome: Progressing Goal: Patient will display nonviolent behaviors toward others in the hospital, with the aid of medications and nursing interventions. Outcome: Progressing Goal: Patient will seek help when experiencing aggressive impulses. Outcome: Progressing Goal: Patient will refrain from verbal threats and loud, profrane language toward others. Outcome: Progressing Goal: Patient will be safe and free from injury. Outcome: Progressing Problem: Skin Integrity Goal: Skin integrity is maintained or improved Outcome: Progressing Problem: Neurological Deficit Goal: Neurological status is stable or improving Outcome: Progressing * Awilda Li RN - 11/06/2022 1:33 AM CDT Ptt scheduled for 2144. Robotic Technician couldn't get vein and wasn't notified. I realized no Ptt result and sent one down. Lab said not enough in tube. Had another RN draw, couldn't get vein. Another RNattempting. * Shahab Dawn RN - 11/05/2022 10:04 PM CDT Problem: Swallowing Goal: LTG - Patient will tolerate the least restrictive diet consistency to allow for safe consumption of daily meals Outcome: Not Progressing Goal: STG - Patient will participate in instrumental assessment of swallowing as appropriate Outcome: Not Progressing Goal: STG - Patient will tolerate therapeutic trials of recommended consistency without clincial signs and symptoms of aspiration Outcome: Not Progressing Goal: STG - Patient will tolerate recommended food and liquid consistencies without clinical signs and symptoms of aspiration Outcome: Not Progressing Goal: STG - Patient will complete swallowing exercises Outcome: Not Progressing Goal: STG - Patient/family will complete oral motor exercises for improved bolus control Outcome: Not Progressing Problem: Transfers Goal: STG - Transfer from bed to chair Outcome: Not Progressing Problem: ELOPEMENT/ABDUCTION Goal: Risk for elopement &/or abduction during hospitalization is minimized Outcome: Progressing Problem: Pain/Discomfort Goal: Patient uses pharmacological and non-pharmacological pain management strategies. Outcome: Progressing Goal: Patient verbalizes acceptable level of pain relief and ability to engage in desired activity. Outcome: Progressing Problem: Mobility Goal: Patient's mobility/activity will be maintained as optimum level for age, diagnosis and physical limitations Outcome: Progressing Goal: Continuum of care needs are further met through referral to outpatient services when appropriate. Outcome: Progressing Goal: Patient reports the ability to perform Activities of Daily Living. Outcome: Progressing Problem: Communication Impairment/Dysarthria Goal: Ability to express needs and understand communication Outcome: Progressing Problem: Nutrition Goal: Nutritional status is improving Outcome: Progressing Problem: Glycemic Control Goal: Clinical indication of glycemia balance is achieved Outcome: Progressing Problem: Knowledge Deficit,Education,Discharge Plan Goal: The patient/family will understand cerebrovascular disease and its symptoms, treatment and management Outcome: Progressing Problem: Oral Intake: Inadequate oral intake Goal: Total intake will meet estimated nutrient needs Outcome: Progressing Problem: Risk for Violence: Self-Directed or Other Directed Description: Diagnosis: Risk for self-directed Violence or Risk for Directed Violence Risk Factors: Biochemical/neurologic imbalances, impulsivity, manic excitement, psychotic symptomatology, rage reaction, restlessness Possibly Evidenced By: agitated behaviors, delusional thinking, hallucinations, loud/threatening/profane speech, poor impulse control, provocative behaviors, verbal threats against others, verbal threats against self Goal: Patient will verbalize control of feelings. Outcome: Progressing Goal: Patient will respond to interventions when potential or actual loss of control occurs. Outcome: Progressing Goal: Patient will refrain from provoking others to physical harm. Outcome: Progressing Goal: Patient will display nonviolent behaviors toward others in the hospital, with the aid of medications and nursing interventions. Outcome: Progressing Goal: Patient will seek help when experiencing aggressive impulses. Outcome: Progressing Goal: Patient will refrain from verbal threats and loud, profrane language toward others. Outcome: Progressing Goal: Patient will be safe and free from injury. Outcome: Progressing Problem: Skin Integrity Goal: Skin integrity is maintained or improved Outcome: Progressing Problem: Neurological Deficit Goal: Neurological status is stable or improving Outcome: Progressing * Dixie Petersen RN - 11/05/2022 8:00 PM CDT Rapid Response Nurse Rounding Note [place] [id number] [facility] [place] [address] Patient: Consuelo Darby : 1980 Location: Patient rounding completed by ALGEBRA TEACHER, respirations even and unlabored. Continued fevers, however, no concerns brought forward from staff.??VSS.??No further Rapid Response Nursing needs at this time. Vital Signs: Patient Vitals for the past 6 hrs: Temp Pulse BP 11/05/22 2339 (!) 101.5 ??F (38.6 ??C) -- -- 11/05/22 2229 -- (!) 111 (!) 156/104 Dixie Petersen RN Rapid Response Nurse [phone] * Xochitl Perry OT - 11/05/2022 2:[address] [facility] Occupational Therapy Splint Check Note Patient Name Consuelo Darby Date of 1980 Age [age] year old Type of Splint: L resting hand splint and L foot drop splint Splint Issued by: Not applicable-follow up visit Splint Check Completed: Splint not on: Per family present in room, was removed by nursing during a prior shift and has not been worn since. Pt's at bedside and holding pt's hand, reporting that she has not had a clenched fist recently. Recommended pt wear splint overnight or when family is not present at bedside while consistent improvement can be monitored. Donned L foot drop splint and educated on LE positioning when in supine position to prevent external rotation. Treatment Plan: Patient/Family education completed. and Will continue to monitor splint while patient in hospital. 11/05/2022 * Kaden Ramsey MD - 11/05/2022 1:34 PM CDT [facility] Infectious Diseases Progress Note Admitted on: 10/19/2022 7:53 AM Hospital stay: Room: 522/01 Attending: Jaime Drew MD Reason for IDf/u: Fever cx negative endocarditis Brief History and Hospital Course: Consuelo Darby is a 41 year old female with a past medical history significant for essential hypertension, migraine, GERD. ?? Patient presented to [facility] on 10/19/2022 as code stroke due to acute onset left sided weakness, left sided sensory deficits, and dysarthria. As per chart review, BIBEMS for code stroke, called EMS for after he found patient down on ground next to bed at 0645. LKW approximately 0630. EMS reports patient with left side hemiparesis, and non verbal on arrival. En route, EMS reports patient answers questions appropriately and speech cleared. On interview with today patient was in her usual state of health the day before prior to admission and that he heard her wake up after her alarmwent of and she went to the bathroom to get ready and after a few minutes he saw her on the ground.Upon further questioning, reports that she had been feeling in her usual state before this episodes and denies anything out of the ordinary in the last few days prior to onset of symptoms. Hedenies fever, chills, diaphoresis, chest pain, dyspnea, cough, sputum production, change in bowel habits, dysuria, weight changes, joint pains, rashes, sick contacts, insects or tick bites. She lives with in [place], [place]. 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 They recently went to a trip to [place] for vacation, she bathed in the sea but only up to her feet, no espinoza, went to a water park, denies eating any type of seafood while on vacation. de scribes her a indoor type, no recent hiking, farm animal exposure, wild animal exposure. She has a regular diet and denies raw food, seafood, unpasteurized milk. No other outdoor hobbies. She has yearly wellness exams and well woman exams. Family unsure if up to date with cancer screening. denies any recent dental issues and she has regular prophylactic teeth cleanings. She has a medical history significant for migraine for which she takes rizatriptan, and amitriptyline, she has hypertension for which she takes metoprolol and verapamil, GERD for which she takes Prilosec, and environmental allergies for which she takes Zyrtec as needed. She is on control with combined OCP levonorgestrel/ethinyl estradiol. Surgical history of two C-sections and cholecystectomy; denies foreign material implants. NKDA. Family history remarkable for Sjogren in sister and breast cancer in maternal aunt. Social history: past smoker, smoked for approximately 15 years, less than a pack a day and quit approximately 8 years ago, occasional alcohol consumption, denies drugs and IVDU. ?? She was afebrile, hemodynamically stable on initial examination. Labs were remarkable for mild leukocytosis. Neurology was consulted on admission and underwent stroke protocol. She was found to have right MCA ischemic stroke. Interventional neurology was consulted and patient underwent diagnostic catheter cerebral angiogram and revascularization of right MCA occlusion on 10/19/2022. She was then transferred to the ICU for close monitoring. Hospital stay was complicated by developing cerebral edema for which neurosurgery was consulted and patient was taken to the OR for right decompressive hemicraniectomy on 10/20/2022. As part of embolic/ischemic stroke work up, patient also underwent SARAH andshowed vegetation on aortic side of left coronary cusp, negative bubble study, no thrombus in left atrial appendage. ID consulted to rule out IE. 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 Bartonella PCR negative in blood. Patient also underwent to throbectomy on 10/30. Patient started having a high grade fever on 11/03 so ID is re-consulted. As I talked to the nurse, she has some discharged from [facility] today. U/A and Ucx were sent. SUBJECTIVE & INTERVAL HISTORY: Patient seen and examined. Febrile Current Abx: vancomycin, ceftriaxone and doxycycline. Inpatient Medications ??? 0.9% NaCl 3 mL Intracatheter q8h ??? acetaminophen 650 mg Enteral Tube q6h ??? atorvastatin 80 mg Enteral Tube AT BEDTIME ??? cefTRIAXone 2 g Intravenous q12h ??? guaiFENesin 10 mL Enteral Tube q12h ??? lansoprazole 30 mg Enteral Tube QDAY BEFORE BREAKFAST ??? loratadine 10 mg Enteral Tube QDAY ??? metoprolol tartrate IR 25 mg Enteral Tube q12h ??? polyethylene glycol 3350 17 g Enteral Tube QDAY ??? senna-docusate 2 tablet Enteral Tube QDAY ??? tamsulosin 0.4 mg Enteral Tube QDAY ??? vancomycin 1,500 mg Intravenous q8h ??? vancomycin (VANCOCIN) IV dose per pharmacy Does not apply DIRECTED ??? verapamil 40 mg Enteral Tube q8h ??? Vitamin D3 (cholecalciferol) 2,000 Units Enteral Tube QDAY ??? warfarin Other QDay 1700 ??? warfarin 5 mg Enteral Tube once warfarin heparin, 500-2,150 Units/hr, Last Rate: 1,350 Units/hr (11/04/222211) PRN Medications ??? SALINE LOCK, INSERT AND MAINTAIN AND 0.9% NaCl AND 0.9% NaCl ??? bisacodyl ??? diphenhydrAMINE-zinc acetate ??? oxyCODONE (immediate release) OBJECTIVE: Vital Signs: BP 126/74 Pulse 103 Temp (!) 102.2 ??F (39 ??C) Resp 18 Ht 1.626 m (5' 4 ) Wt 95.3 kg (210 lb) SpO2 94% Temp (24hrs), Av.8 ??F (38.2 ??C), Min:98.8 ??F (37.1 ??C), Max:103 ??F (39.4 ??C) I/O: No intake or output data in the 24 hours ending 11/05/22 1334 Physical Exam: General: Alert, cooperative, no distress, obese Head: Normocephalic, atraumatic Eyes: Conjunctiva pale, corneas clear, anicteric sclerae Nose: No deformity Mouth and Throat: Oropharynx clear, no thrush Neck: Supple, symmetrical, no JVD Chest wall: No tenderness or deformity Lungs: Clear to auscultation bilaterally Heart: RRR, S1, S2 normal, no murmur, click, rub or gallop Abdomen: Soft, mild-distended, non-tender, +BS Lines: 3 More LDAs Peripheral IV Anterior;Left Hand -- Peripheral IV Left;Posterior Forearm 5 days Peripheral IV Left;Posterior Hand 2 days Indwelling Transurethral Urinary Catheter 9 days--Per the nurse got exchanged today Enteral - Nasal/Oral Other (Comment) Left 4 days Enteral - Percutaneous Endoscopic Gastrostomy Abdomen;Left;Upper 4 days Puncture Site Femoral 17 days Puncture Site Radial 17 days Puncture Site Femoral 17 days Procedural Site (Incision) Right Head 15 days Procedural Site (Incision) Right Groin 6 days LABS CBC: Recent Labs Component Name 11/05/22 1227 11/04/228 11/02/22 2221 10/23/22 0129 10/22/22 0153 WBC 6.9 8.4 13.3* - - RBC 3.24* 3.73* 3.44* - - HGB 9.7* 10.9* 10.3* - - HCT 29.6* 34.6* 32.0* - - MCV 91.4 92.8 93.0 - - PLT - - - - 199 - = values in this interval not displayed. BMP: Recent Labs Component Name 11/05/22 1124 11/04/22212711/04/22 0553 10/20/22 0302 10/19/22 0824 06/15/22 0757 NA 139 141 139 - 139 138 CL 104 106 104 - 108* 107 CO2 23 25 25 - 21* 23 BUN 8 8 9 - 13 12 CREATININE 0.54* 0.55* 0.56 - 0.84 0.74 ALB - - - - 3.5 3.6 PROT - - - - 7.7 7.5 - = values in this interval not displayed. estimated creatinine clearance is 155 mL/min (A) (by C-G formula based on SCr of 0.54 mg/dL (L)). Recent Labs Component Name 10/19/22 0824 06/15/22 0757 12/09/18 0812 ALT 16 9 17 AST 19 17 18 ALKPHOS 52 44 56 TBILI 0.1* 0.1* - Bartonella PCR negative Mycoplasma IGM and IGG negative Chlamydia IGM/IGG negative Q fever IGG,IGM negative Bartonella IGG,IGM negative Latest Reference Range & Units 11/05/22 12:54 Color UA Straw, Yellow Yellow Clarity UA Clear Slt Cloudy ! Specific Botkins UA 1.005 - 1.030 1.016 pH UA 5.0 - 8.0 pH 7.0 Protein UA Negative Negative Blood UA Negative 1+ ! Ketone UA Negative Negative Leukocyte Esterase Negative Negative Nitrite UA Negative Negative Glucose UA Negative Negative Bilirubin UA Negative Negative Urobilinogen UA Negative mg/dL Negative WBC UA None Seen, 0-5 /HPF 6-10 ! RBC UA None Seen, 0-2, 3-5 /HPF 51-100 ! Squamous Epithelial Cells UA None Seen, 0-2, 3-5 /HPF 0-2 Bacteria Urine None /HPF Trace ! Mucus UA /LPF 1+ Amorphous Crystals None /HPF Rare ! !: Data is abnormal MICROBIOLOGY: Blood culture 10/23 final no growth HISTOPATHOLOGY: None at this admission IMAGING & PROCEDURE: Pertinent images independently reviewed; report in chart. SARAH 10/23 Aortic??Valve: Valve structure is normal. There is a 6 x 7 mm independently mobile mass on the leftcoronary cusp. Differential includes vegetation (non- bacterial thrombotic endocarditis, infective endocarditis) vs less likely fibroelastoma. ??? Left??Atrium: No right to left intracardiac or extracardiac shunt present viewable with agitated saline, color Doppler and Valsalva maneuver. Normal sized appendage. Normal appendage flow velocity. No thrombus present in the left atrial appendage (MADELEINE). ??? Left??Ventricle: Left ventricle size is normal. Hyperdynamic systolic function with a visually estimated EF of 75 - 80%. ??? 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 Patient was started on vancomycin and ceftriaxone and doxycycline per the previous ID consult and planned to complete4 weeks. He unfortunately developed fever so ID is re-call for further revaluation. His fever could be from infectious causes related to his endocaritis or new infection during his hospitalization VS non-infectious etiology. He is CXR with pending official read. But no PNA symptoms. Bcx was taken, can switch ceftriaxone to cefepime and continue vancomycin, doxycycline. Please remove the puentes if he doesn't need one. Last SARAH was done about 2 weeks ago if we can repeat TTE at least to see the size of vegetation. Plan/Recommendations: -stop ceftriaxone and switch to cefepime 2 gm q 8hrs, continue vancomycin and doxycycline. -F/U final Bcx, CXR read -repeat TTE to evaluate the size of vegetation. -Follow CBC with diff, BMP weekly (at minimum) while on IV antibiotics -She had exchanged puentes today, U/A seems not to be impressive for UTI. -complained of abdominal pain, but reported constipation ,please observe closely. If its worsening,can consider CT. But can start for KUB as well. We will continue to follow and monitor the patient. Thank you for allowing us to participate in thecare of this patient. Please call with any questions or concerns. >35 minutes spent on the care of this patient. > 50% was spent in counseling and coordinationof care that included the patient and the primay team. Kaden Ramsey MD MPH Infectious Diseases * Jaime Drew MD - 11/05/2022 12:03 PM CDT The above note was reviewed. The patient was seen and examined. I would add the following: I saw and examined the patient with the resident and/or medical student and/or nurse practitioner. I have verified all details of the note and agree with his/her documentation with additions and modifications as listed in my separate note. Please refer to the resident's, medical student's, or nursepractitioner's note for plans of active problems not discussed in this note. 42F p/w M1 occlusion s/p TNK and MT and TICI2b revascularization. TTE showed mobile aortic valve vegetation. Developed MCA syndrome s/p hemicrani. MT c/b R iliac and common femoral a. occlusion s/p thrombectomy. On warfarin bridge now. Developed fever- consulted ID, broaden abx, Cxs, Ddimer, TSH MEDICATIONS FOR CURRENT ENCOUNTER: SCHEDULED MEDICATIONS: 0.9% NaCl injection 3 mL, Intracatheter, q8h acetaminophen (Tylenol) tablet 650 mg, Enteral Tube, q6h atorvastatin (Lipitor) tablet 80 mg, Enteral Tube, AT BEDTIME cefTRIAXone (Rocephin) 2,000 mg in 0.9% NaCl IV 50 mL IVPB, Intravenous, q12h guaiFENesin (Robitussin) solution 10 mL, Enteral Tube, q12h lansoprazole (Prevacid) suspension 30 mg, Enteral Tube, QDAY BEFORE BREAKFAST loratadine (Claritin) tablet 10 mg, Enteral Tube, QDAY metoprolol tartrate IR (Lopressor) tablet 25 mg, Enteral Tube, q12h polyethylene glycol 3350 (Miralax) packet 17 g, Enteral Tube, QDAY senna-docusate (Senokot-S) tablet 2 tablet, Enteral Tube, QDAY tamsulosin (Flomax) capsule 0.4 mg, Enteral Tube, QDAY vancomycin (Vancocin) 1,500 mg in 500 mL NaCl IVPB Premix, Intravenous, q8h vancomycin (Vancocin) IV dose per pharmacy, Does not apply, DIRECTED verapamil (Isoptin) tablet 40 mg, Enteral Tube, q8h vitamin D3 (Cholecalciferol) 25 MCG (1000 UNITS) tablet 2,000 Units, Enteral Tube, QDAY warfarin (Coumadin) dose per pharmacy, Other, QDay 1700 warfarin (Coumadin) tablet 5 mg, Enteral Tube, once warfarin [COMPLETED] 0.9% NaCl IV bolus, Intravenous, Once [COMPLETED] diphenhydrAMINE (Benadryl) injection 25 mg, Intravenous, Once [COMPLETED] ketorolac (Toradol) injection 15 mg, Intravenous, Once [COMPLETED] magnesium sulfate 2 g in 50 mL bolus, Intravenous, Once [COMPLETED] prochlorperazine (Compazine) injection 10 mg, Intravenous, Once ?? [COMPLETED] warfarin (Coumadin) tablet 5 mg, Enteral Tube, once warfarin CONTINUOUS MEDICATIONS: ?? heparin 100 units/mL in dextrose 5 % infusion, Intravenous, Continuous PRN MEDICATIONS: 0.9% NaCl injection 3 mL, Intracatheter, PRN bisacodyl (Dulcolax) suppository 10 mg, Rectal, QDAY PRN diphenhydrAMINE-zinc acetate (Benadryl Extra Strength) 2-0.1 % cream, Topical, PRN ?? oxyCODONE (immediate release) (Roxicodone) tablet 5 mg, Enteral Tube, q6h PRN Patient Vitals for the past 24 hrs: Temp Pulse Resp BP 11/05/22 1142 (!) 102.2 ??F (39 ??C) 103 -- 126/74 08/27/23 1118 (!) 103 ??F (39.4 ??C) -- -- -- 11/05/22 0857 -- (!) 110 -- (!) 137/101 11/05/22 0855 (!) 100.9 ??F (38.3 ??C) (!) 110 18 (!) 137/101 11/05/22 0350 98.9 ??F (37.2 ??C) 98 16 117/59 11/05/22 0201 98.8 ??F (37.1 ??C) -- -- -- 11/05/22 0110 (!) 100.3 ??F (37.9 ??C) -- -- -- 11/05/22 0055 (!) 103 ??F (39.4 ??C) -- -- -- 11/04/222128 -- (!) 110 -- 154/76 11/04/22 2055 99.8 ??F (37.7 ??C) 109 18 146/72 11/04/22 1712 99.9 ??F (37.7 ??C) 93 18 146/88 Intake/Output Summary (Last 24 hours) at 11/05/2022 1203 Last data filed at 11/04/2022 1306 Gross per 24 hour Intake -- Output 900 ml Net -900 ml Labs: Recent Labs Component Name 10/20/22 0302 06/15/22 0757 CHOL 173 204* TRIG 201* 251* HDL 42 37* LDLCALC 91 117* Recent Labs Component Name 10/20/22 1015 HGBA1C 6.0* Recent Labs Component Name 11/05/22 1124 11/04/228 11/04/22 0553 11/02/22 2221 NA 139 141 139 138 POTASSIUM 3.8 3.7 3.6 3.9 CL 104 106 104 103 CO2 23 25 25 23 BUN 8 8 9 11 CREATININE 0.54* 0.55* 0.56 0.55* CALCIUM 8.5 8.3* 8.6 8.9 MAGNESIUM 2.0 2.3 2.0 1.9 PHOS 3.2 3.4 3.8 4.2 Recent Labs Component Name 11/04/22212724/23 2221 11/02/22 0132 11/01/22 0003 WBC 8.4 13.3* 19.3* 20.6* HGB 10.9* 10.3* 10.0* 10.1* HCT 34.6* 32.0* 31.1* 31.6* PLTCOUNT 383 405* 400 437* RBC 3.73* 3.44* 3.32* 3.41* Recent Labs Component Name 11/05/22 0350 11/04/228 11/04/22 1617 11/04/22 0931 11/04/22 0553 11/03/22 2353 PT 15.5* - - - 14.5 14.2 INR 1.3 - - - 1.1 1.1 PTT 77.4* 53.3* 131.0* - 96.7* 77.9* - = values in this interval not displayed. Recent Labs Component Name 10/30/22 1333 10/30/22 1259 10/21/22 0801 10/20/22 2246 PH 7.40 7.33* 7.40 7.36 PCO2 39 49* 31* 32* PO2 228* 208* 143* 179* FIO2 - - 30.0 40.0 No data found. Micro: Microbiology Results (Displays last 21 days for this encounter ONLY) Procedure Component Value - Date/Time CULTURE BLOOD [[id number]] Collected: 11/05/22 1054 Lab Status: In process Specimen: Blood Peripheral Updated: 11/05/22 1123 CULTURE URINE [[id number]] Lab Status: No result Specimen: Urine Cath Straight RESPIRATORY PANEL WITH SARS-COV-2 BY PCR (STL) [[id number]] Lab Status: No result Specimen: Microbiology from Nasopharyngeal CULTURE URINE [[id number]] (Normal) Collected: 10/27/22 1208 Lab Status: Final result Specimen: Urine Clean Catch Updated: 10/28/222235 Culture Urine No growth (<100 CFU/mL) CULTURE BLOOD FUNGUS [[id number]] (Normal) Collected: 10/27/22 1158 Lab Status: Preliminary result Specimen: Blood Peripheral Updated: 10/30/22 0628 Culture No fungus isolated CULTURE BLOOD AFB [[id number]] (Normal) Collected: 10/27/22 1158 Lab Status: Preliminary result Specimen: Blood Peripheral Updated: 10/30/22 0750 Culture No acid-fast bacillus isolated BARTONELLA SPECIES PCR [[id number]] Collected: 10/27/22 1158 Lab Status: Final result Specimen: Blood Updated: 11/01/22 1638 Bartonella Source Plasma Bartonella Species by PCR Not Detected Comment: NOT DETECTED - A negative result does not rule out the presence of PCR inhibitors in the patient specimen or assay specific nucleic acid in concentrations below the level of detection by the assay. INTERPRETIVE INFORMATION: Bartonella Species Detection by PCR This test was developed and its performance characteristics determined by [facility]. It has not been cleared or approved by the [place] Food and Drug Administration. This test was performed in a CLIA certified laboratory and is intended for clinical purposes. Performed By: [facility] [address] [place] [id number] Microfilm Mounter: Boo Bond MD, PhD CLIA Number: [id number] CULTURE BLOOD [[id number]] (Normal) Collected: 10/25/22 0900 Lab Status: Final result Specimen: Blood Peripheral Updated: 10/30/22 1330 Culture No growth day 5 CULTURE BLOOD [[id number]] (Normal) Collected: 10/24/22 1313 Lab Status: Final result Specimen: Blood Peripheral Updated: 10/29/22 1632 Culture No growth day 5 MRSA DNA PCR [[id number]] (Normal) Collected: 10/23/22 1234 Lab Status: Final result Specimen: Microbiology from Nasal Updated: 10/23/22 2044 MRSA DNA by PCR Not detected Narrative: Methicillin-resistant Staphylococcus aureus (MRSA) DNA is not detected (presumed not colonized withMRSA). CULTURE BLOOD [[id number]] (Normal) Collected: 10/23/22 1216 Lab Status: Final result Specimen: Blood Peripheral Updated: 10/28/22 1702 Culture No growth day 5 CULTURE BLOOD [[id number]] (Normal) Collected: 10/23/22 1205 Lab Status: Final result Specimen: Blood Peripheral Updated: 10/28/22 1702 Culture No growth day 5 Length of stay: 17 Problem List Right middle cerebral artery stroke (CMS/HCC) (POA: Unknown) Acute cerebrovascular accident (CVA) due to embolism of right middle cerebral artery (CMS/HCC) (POA: Yes) Nihss score 9 (POA: Yes) Received intravenous tissue plasminogen activator (tPA) in emergency department (POA: Yes) GERD (gastroesophageal reflux disease) (POA: Yes) Hemianopsia (POA: Yes) Weakness (POA: Yes) Left-sided sensory deficit present (POA: Yes) Gaze palsy (POA: Yes) Migraine (POA: Unknown) Hypertension (POA: Unknown) Presence of externally removable percutaneous endoscopic gastrostomy (PEG) tube (CMS/HCC) (POA: Unknown) Present on Admission: ??? Hemianopsia ??? Weakness ??? Left-sided sensory deficit present ??? Gaze palsy ??? Acute cerebrovascular accident (CVA) due to embolism of right middle cerebral artery (CMS/HCC) ??? Nihss score 9 ??? Received intravenous tissue plasminogen activator (tPA) in emergency department ??? GERD (gastroesophageal reflux disease) Routine multidisciplinary rounds were completed today with the presence of the primary team staff, residents, PT/OT/SIGNALING PROJECT ENGINEER and CM/SW. Jaime Drew MD Vascular and Interventional Neurology * Vickie Muller MD - 11/05/2022 9:44 AM CDT Stroke Service Daily Progress Note Consuelo Darby Age: [age] year old Date of : 1980 Date of Admission: 10/19/2022 Hospital Day: 17 Subjective Consuelo Darby is a 41yo woman hemiplegic migraine, GERD, GENESIS. who developed acute onset L sided weakness, L-sided sensory deficits, and dysarthria. L sided weakness resolved in route and dysarthria improved in route. On arrival patient noted to hae L gaze plasy, L hemainopsia, mild dysarthria, andextinction. NIHSS: 7. S/p TNK and TICI2b revascularization of the R MCA M1 occlusion.Repeat CTH showing edema in R MCA territory. On 10/20/22 patient taken for hemicraniectomy, post-op CTH showing stable midline shift. Initial hypercoag work up negative, repeat in 2 months. -8/14- SARAH concerning for aortic cusp vegetations. Rheum, [...] and patch angioplasty. 10/31: CT A/P obtained 04/13 concern for abscess by GI team while evaluating her for G tube 11/01 CT A/P obtained and no abscess was identified in the abdominal area. Postsurgical changes after vascular surgery. 11/02 GI to take her to OR for G tube. Ready TTF. 11/03 start warfarin bridge 11/04 CT head for headache and eye discomfort after bumping her head on hemicrani site. NSGY aware and evaluated her. CT looks stable. 11/05 had a fever. Infectious workup initiated and ID reconsulted. Plan to broaden spectrum (currently on ceftriaxone + vanc, switch to cefe + vanc + Flagyl) after blood cultures are taken Interval History: NSGY to remove carla 11/06 Objective Patient Vitals for the past 24 hrs: BP Temp Temp src Pulse Resp SpO2 11/05/22 0857 (!) 137/101 -- -- (!) 110 -- -- 11/05/22 0855 (!) 137/101 (!) 100.9 ??F (38.3 ??C) Axillary (!) 110 18 -- 11/05/22 0350 117/59 98.9 ??F (37.2 ??C) Axillary 98 16 100 % 11/05/22 0201 -- 98.8 ??F (37.1 ??C) -- -- -- -- 11/05/22 0110 -- (!) 100.3 ??F (37.9 ??C) -- -- -- -- 11/05/22 0055 -- (!) 103 ??F (39.4 ??C) -- -- -- -- 11/04/222128 154/76 -- -- (!) 110 -- -- 11/04/222054 146/72 99.8 ??F (37.7 ??C) Axillary 109 18 97 % 11/04/221711 146/88 99.9 ??F (37.7 ??C) Oral 93 18 95 % Intake/Output Summary (Last 24 hours) at 11/05/2022 0944 Last data filed at 11/04/2022 1306 Gross per 24 hour Intake -- Output 900 ml Net -900 ml Exam: Cortical Function Mental Status Awake, alert, follows commands Orientation REYNOLD Language Aphasia Visual Powell Intact bilaterally to confrontation Neglect No visual neglect noted, no tactile neglect noted Cranial Nerves II Pupils 3 mm and bilaterally reactive to light. Fundoscopic exam not performed. VIII Hearing is intact bilaterally to voice. III/IV/ Extraocular muscles intact. No diplopia, ptosis, nystagmus or convergence abnormalities noted. IX/X REYNOLD V REYNOLD XI Head turning and shoulder shrug are intact. VII L facial palsy XII Tongue is midline with normal movements and no atrophy noted. Motor Function Movement No abnormalities noted Bulk No abnormalities noted Tone No abnormalities noted Moves RUE and RLE, tries to withdraw to pain in LUE and LLE Sensory Light Touch REYNOLD Noxious Stimuli Symmetric and intact bilaterally Labs: Recent Labs Component Name 11/04/22212711/02/22222011/02/22 0132 10/23/22 0129 10/22/22 0153 WBC 8.4 13.3* 19.3* - - RBC 3.73* 3.44* 3.32* - - HGB 10.9* 10.3* 10.0* - - HCT 34.6* 32.0* 31.1* - - PLT - - - - 199 - = values in this interval not displayed. Recent Labs Component Name 11/04/22212711/04/2253 11/02/222220 NA 141 139 138 CL 106 104 103 CO2 BUN 8 9 11 CREATININE 0.55* 0.56 0.55* CALCIUM 8.3* 8.6 8.9 No results for input(s): MG in the last 55518 hours. Recent Labs Component Name 11/04/22212711/04/2253 11/02/22 2221 PHOS 3.4 3.8 4.2 Recent Labs Component Name 11/05/22 0350 11/04/22 2128 11/04/22 1617 11/04/22 0931 11/04/22 0553 11/03/22 2353 PT 15.5* - - - 14.5 14.2 INR 1.3 - - - 1.1 1.1 PTT 77.4* 53.3* 131.0* - 96.7* 77.9* - = values in this interval not displayed. No results for input(s): A1C in the last 01334 hours. Recent Labs Component Name 10/20/22 0302 06/15/22 0757 CHOL 173 204* HDL 42 37* LDLCALC 91 117* TRIG 201* 251* Recent Labs Component Name 06/15/22 0757 TSH 1.873 No results for input(s): CKMB, CKTOTAL, CKMB, TROPONINI, BNP in the last [address] ANGIO BRAIN NECK STROKE Result Date: 10/19/2022 IMPRESSION: 1. Occlusion of the distal M1 [...] readback comprehension and verification. > Interpreting Provider: Lonnei Rae MD on 10/19/2022 8:[address] BRAIN - Stroke Result Date: 10/19/2022 IMPRESSION: 1. No acute intracranial hemorrhage. 2. [...] Lonnie Rae MD on 10/19/2022 8:15 AM Right middle cerebral artery stroke (CMS/HCC) (POA: Unknown) Acute cerebrovascular accident (CVA) due to embolism of right middle cerebral artery (CMS/HCC) (POA: Yes) Nihss score 9 (POA: Yes) Received intravenous tissue plasminogen activator (tPA) in emergency department (POA: Yes) GERD (gastroesophageal reflux disease) (POA: Yes) Hemianopsia (POA: Yes) Weakness (POA: Yes) Left-sided sensory deficit present (POA: Yes) Gaze palsy (POA: Yes) Migraine (POA: Unknown) Hypertension (POA: Unknown) Presence of externally removable percutaneous endoscopic gastrostomy (PEG) tube (CMS/HCC) (POA: Unknown) Assessment ??Consuelo Darby is a 41 year old female who presented on 10/19 with Right MCA syndrome s/p TNK. CTA 1 M1 occlusion. S/P mechanical thrombectomy with R M1 recanalization and TICI2b. CT 10/20/22 with edema and mild shift. S/P decompressive right hemicraniectomy. Echo showed a mobile aortic valve vege tation. MRI brain with scattered cortical R hemisphere infarcts with petechiae. ?? Stroke Type: Ischemic Stroke Mechanism: Cardioembolic ?? 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 EOT 11/22 R illiac and common femoral artery occlusion - s/p R common femoral thrombectomy and patch angioplasty by vasc surgery ?? HTN - home metop Blood Pressure Goals: SBP <160, map >70 Vit D deficiency - Vit D 2,000 U daily Individual Modifiable Risk Factors Hypertension: no Hyperlipidemia: no Diabetes: no Atrial Fibrillation: no Tobacco: no Vickie Muller MD Neurology Resident * Joavnni Mcgrath PharmD - 11/05/2022 8:18 AM CDT ACTIVE CONSULTS TO PHARMACY/DISEASE STATE MONITORING Pharmacy Consult: Warfarin Management ASSESSMENT/PLAN Warfarin Indication for anticoagulation: DVT and Ischemic Stroke due to septic emboli Warfarin schedule prior to this encounter: New start Warfarin Dose History Date INR Dose (mg) Comments 11/03 1.2 5 mg New start with heparin bridge 11/04 1.1 5 mg Continue heparin 11/05 1.3 Continue heparin Goal INR: 2.0 - 3.0 Today's INR: Subtherapeutic Pertinent medications during hospitalization: lansoprazole may increase warfarin concentrations Plan: 1. Warfarin dose: 5 mg X 1 2. Daily INR 3. Bridging therapy with heparin drip Subjective/Objective Consuelo Darby is a 42 year old female. The primary encounter diagnosis was Right middle cerebralartery stroke (CMS/HCC). Diagnoses of Weakness, Gaze palsy, Hemianopsia, Left-sided sensory deficitpresent, Dysarthria, At high risk for bleeding after thrombolytic therapy, Acute cerebrovascular accident (CVA) due to embolism of right middle cerebral artery (CMS/HCC), Nihss score 9, Aortic valve vegetation, Occlusion of external iliac artery (CMS/HCC), Cold extremity without peripheral vasculardisease, Acute lower limb ischemia, Leukocytosis, unspecified type, Received intravenous tissue plasminogen activator (tPA) in emergency department, Hypoxia, Ischemia, Primary hypertension, Iliac artery occlusion, right (CMS/HCC), and Presence of externally removable percutaneous endoscopic gastrostomy (PEG) tube (CMS/HCC) were also pertinent to this visit. Height: 5' 4 (162.6 cm) Wt 95.3 kg (210 lb) Body mass index is 36.05 kg/m??. Serum creatinine: 0.55 mg/dL (L) 11/04/222127 Estimated creatinine clearance: 152.2 mL/min (A) * Gianna Lopez OT - 11/05/2022 7:[address] [facility] Acute Rehab update: Patient not yet medically ready to transfer to [place] today. Per bedside RN Shahab, patient remains on heparin drip this morning. Notified team, no documented BM since 10/30. [facility] will follow up tomorrow. Thanks! Gianna Lopez OTR/L Clinical Liaison [facility] Acute Rehab [facility] [phone] * Susi Glez MD - 11/05/2022 7:29 AM CDT Neurosurgery called to bedside. Patient reportedly hit her head while being adjusted in bed underneath crani site. Patient began complaining of severe headaches. On exam, patient somnolent but awakens to gentle stimulation, follows commands on RUE and RLE. Repeat CT shows stable hemicrani site, no signs of ICH Carla removed at bedside today. Wound healing well. Okay to shower/ wash head but do not scrub atincision. If patient is picking at incision okay to place gauze to prevent wound dehiscence/ infection. Patient should wear helmet (at bedside) while out of bed and working with PT/OT. Please call neurosurgery with any further exam changes or questions. Will follow-up in [address] Kamari Mcfarlane MD 11/05/2022 7:31 AM * Ventura Miguel PA-C - 11/05/2022 7:06 AM CDT CTS Plan of Care: Updated by primary team of plans for discharge possibly as soon as today to stroke rehab. Patient has been started on coumadin bridge therapy. SARAH will be repeated as outpatient with cardiology. Please arrange follow up with CTS as necessary based on findings of outpatient SARAH. Lul Miguel PA-C [phone] * Awilda Li RN - 11/05/2022 6:37 AM CDT Problem: ELOPEMENT/ABDUCTION Goal: Risk for elopement &/or abduction during hospitalization is minimized Outcome: Progressing Problem: Pain/Discomfort Goal: Patient uses pharmacological and non-pharmacological pain management strategies. Outcome: Progressing Goal: Patient verbalizes acceptable level of pain relief and ability to engage in desired activity. Outcome: Progressing Problem: Mobility Goal: Patient's mobility/activity will be maintained as optimum level for age, diagnosis and physical limitations Outcome: Progressing Goal: Continuum of care needs are further met through referral to outpatient services when appropriate. Outcome: Progressing Goal: Patient reports the ability to perform Activities of Daily Living. Outcome: Progressing Problem: Communication Impairment/Dysarthria Goal: Ability to express needs and understand communication Outcome: Progressing Problem: Nutrition Goal: Nutritional status is improving Outcome: Progressing Problem: Glycemic Control Goal: Clinical indication of glycemia balance is achieved Outcome: Progressing Problem: Knowledge Deficit,Education,Discharge Plan Goal: The patient/family will understand cerebrovascular disease and its symptoms, treatment and management Outcome: Progressing Problem: Oral Intake: Inadequate oral intake Goal: Total intake will meet estimated nutrient needs Outcome: Progressing Problem: Swallowing Goal: LTG - Patient will tolerate the least restrictive diet consistency to allow for safe consumption of daily meals Outcome: Progressing Goal: STG - Patient will participate in instrumental assessment of swallowing as appropriate Outcome: Progressing Goal: STG - Patient will tolerate therapeutic trials of recommended consistency without clincial signs and symptoms of aspiration Outcome: Progressing Goal: STG - Patient will tolerate recommended food and liquid consistencies without clinical signs and symptoms of aspiration Outcome: Progressing Goal: STG - Patient will complete swallowing exercises Outcome: Progressing Goal: STG - Patient/family will complete oral motor exercises for improved bolus control Outcome: Progressing Problem: Transfers Goal: STG - Transfer from bed to chair Outcome: Progressing Problem: Risk for Violence: Self-Directed or Other Directed Description: Diagnosis: Risk for self-directed Violence or Risk for Directed Violence Risk Factors: Biochemical/neurologic imbalances, impulsivity, manic excitement, psychotic symptomatology, rage reaction, restlessness Possibly Evidenced By: agitated behaviors, delusional thinking, hallucinations, loud/threatening/profane speech, poor impulse control, provocative behaviors, verbal threats against others, verbal threats against self Goal: Patient will verbalize control of feelings. Outcome: Progressing Goal: Patient will respond to interventions when potential or actual loss of control occurs. Outcome: Progressing Goal: Patient will refrain from provoking others to physical harm. Outcome: Progressing Goal: Patient will display nonviolent behaviors toward others in the hospital, with the aid of medications and nursing interventions. Outcome: Progressing Goal: Patient will seek help when experiencing aggressive impulses. Outcome: Progressing Goal: Patient will refrain from verbal threats and loud, profrane language toward others. Outcome: Progressing Goal: Patient will be safe and free from injury. Outcome: Progressing Problem: Skin Integrity Goal: Skin integrity is maintained or improved Outcome: Progressing Problem: Neurological Deficit Goal: Neurological status is stable or improving Outcome: Progressing * Shahab Dawn RN - 11/04/2022 8:17 PM CDT Problem: Mobility Goal: Patient reports the ability to perform Activities of Daily Living. Outcome: Not Progressing Problem: Oral Intake: Inadequate oral intake Goal: Total intake will meet estimated nutrient needs Outcome: Not Progressing Problem: Swallowing Goal: LTG - Patient will tolerate the least restrictive diet consistency to allow for safe consumption of daily meals Outcome: Not Progressing Goal: STG - Patient will participate in instrumental assessment of swallowing as appropriate Outcome: Not Progressing Goal: STG - Patient will tolerate therapeutic trials of recommended consistency without clincial signs and symptoms of aspiration Outcome: Not Progressing Goal: STG - Patient will tolerate recommended food and liquid consistencies without clinical signs and symptoms of aspiration Outcome: Not Progressing Goal: STG - Patient will complete swallowing exercises Outcome: Not Progressing Goal: STG - Patient/family will complete oral motor exercises for improved bolus control Outcome: Not Progressing Problem: Transfers Goal: STG - Transfer from bed to chair Outcome: Not Progressing Problem: ELOPEMENT/ABDUCTION Goal: Risk for elopement &/or abduction during hospitalization is minimized Outcome: Progressing Problem: Pain/Discomfort Goal: Patient uses pharmacological and non-pharmacological pain management strategies. Outcome: Progressing Goal: Patient verbalizes acceptable level of pain relief and ability to engage in desired activity. Outcome: Progressing Problem: Mobility Goal: Patient's mobility/activity will be maintained as optimum level for age, diagnosis and physical limitations Outcome: Progressing Goal: Continuum of care needs are further met through referral to outpatient services when appropriate. Outcome: Progressing Problem: Communication Impairment/Dysarthria Goal: Ability to express needs and understand communication Outcome: Progressing Problem: Nutrition Goal: Nutritional status is improving Outcome: Progressing Problem: Glycemic Control Goal: Clinical indication of glycemia balance is achieved Outcome: Progressing Problem: Knowledge Deficit,Education,Discharge Plan Goal: The patient/family will understand cerebrovascular disease and its symptoms, treatment and management Outcome: Progressing Problem: Risk for Violence: Self-Directed or Other Directed Description: Diagnosis: Risk for self-directed Violence or Risk for Directed Violence Risk Factors: Biochemical/neurologic imbalances, impulsivity, manic excitement, psychotic symptomatology, rage reaction, restlessness Possibly Evidenced By: agitated behaviors, delusional thinking, hallucinations, loud/threatening/profane speech, poor impulse control, provocative behaviors, verbal threats against others, verbal threats against self Goal: Patient will verbalize control of feelings. Outcome: Progressing Goal: Patient will respond to interventions when potential or actual loss of control occurs. Outcome: Progressing Goal: Patient will refrain from provoking others to physical harm. Outcome: Progressing Goal: Patient will display nonviolent behaviors toward others in the hospital, with the aid of medications and nursing interventions. Outcome: Progressing Goal: Patient will seek help when experiencing aggressive impulses. Outcome: Progressing Goal: Patient will refrain from verbal threats and loud, profrane language toward others. Outcome: Progressing Goal: Patient will be safe and free from injury. Outcome: Progressing Problem: Skin Integrity Goal: Skin integrity is maintained or improved Outcome: Progressing Problem: Neurological Deficit Goal: Neurological status is stable or improving Outcome: Progressing * Gianna Lopez OT - 11/04/2022 2:[address] [facility] Acute Rehab update: Per Dr. Muller - patient likely to be medically ready for d/c tomorrow. Will follow up in the morning. Would have private room available at [facility]. Addendum: Per chart review, last documented BM 10/30 - would need more recent BM before patient can transfer to rehab once team determines she is medically ready. Thanks for referral, Gianna Lopez OTR/L Clinical Liaison [facility] Acute Rehab [facility] [phone] * Jaime Drew MD - 11/04/2022 1:21 PM CDT The above note was reviewed. The patient was seen and examined. I would add the following: I saw and examined the patient with the resident and/or medical student and/or nurse practitioner. I have verified all details of the note and agree with his/her documentation with additions and modifications as listed in my separate note. Please refer to the resident's, medical student's, or nursepractitioner's note for plans of active problems not discussed in this note. 42F p/w M1 occlusion s/p TNK and MT and TICI2b revascularization. TTE showed mobile aortic valve vegetation. Developed MCA syndrome s/p hemicrani. MT c/b R iliac and common femoral a. occlusion s/p thrombectomy. On warfarin bridge now. Pending rehab. MEDICATIONS FOR CURRENT ENCOUNTER: ?? SCHEDULED MEDICATIONS: ?? 0.9% NaCl injection 3 mL, Intracatheter, q8h ?? atorvastatin (Lipitor) tablet 80 mg, Enteral Tube, AT BEDTIME ?? cefTRIAXone (Rocephin) 2,000 mg in 0.9% NaCl IV 50 mL IVPB, Intravenous, q12h ?? guaiFENesin (Robitussin) solution 10 mL, Enteral Tube, q12h ?? lansoprazole (Prevacid) suspension 30 mg, Enteral Tube, QDAY BEFORE BREAKFAST ?? loratadine (Claritin) tablet 10 mg, Enteral Tube, QDAY ?? metoprolol tartrate IR (Lopressor) tablet 25 mg, Enteral Tube, q12h ?? polyethylene glycol 3350 (Miralax) packet 17 g, Enteral Tube, QDAY ?? senna-docusate (Senokot-S) tablet 1 tablet, Enteral Tube, QDAY ?? tamsulosin (Flomax) capsule 0.4 mg, Enteral Tube, QDAY ?? vancomycin (Vancocin) 1,500 mg in 500 mL NaCl IVPB Premix, Intravenous, q8h ?? vancomycin (Vancocin) IV dose per pharmacy, Does not apply, DIRECTED ?? verapamil (Isoptin) tablet 40 mg, Enteral Tube, q8h ?? vitamin D3 (Cholecalciferol) 25 MCG (1000 UNITS) tablet 2,000 Units, Enteral Tube, QDAY ?? warfarin (Coumadin) dose per pharmacy, Other, QDay 1700 ?? warfarin (Coumadin) tablet 5 mg, Enteral Tube, once warfarin ?? [COMPLETED] warfarin (Coumadin) tablet 5 mg, Enteral Tube, once warfarin ?? CONTINUOUS MEDICATIONS: ?? heparin 100 units/mL in dextrose 5 % infusion, Intravenous, Continuous ?? PRN MEDICATIONS: ?? 0.9% NaCl injection 3 mL, Intracatheter, PRN ?? acetaminophen (Tylenol) tablet 500 mg, Enteral Tube, q4h PRN ?? diphenhydrAMINE-zinc acetate (Benadryl Extra Strength) 2-0.1 % cream, Topical, PRN ?? oxyCODONE (immediate release) (Roxicodone) tablet 5 mg, Enteral Tube, q6h PRN Patient Vitals for the past 24 hrs: Temp Pulse Resp BP 11/04/22 0737 (!) 101 ??F (38.3 ??C) 100 19 162/70 11/04/22 0400 99.5 ??F (37.5 ??C) 102 -- 127/71 11/04/22 0015 -- 68 18 153/80 11/03/222008 98.7 ??F (37.1 ??C) 87 16 144/60 Intake/Output Summary (Last 24 hours) at 11/04/2022 1321 Last data filed at 11/04/2022 1306 Gross per 24 hour Intake 697 ml Output 2950 ml Net -2253 ml Labs: Recent Labs Component Name 10/20/22 0302 06/15/22 0757 CHOL 173 204* TRIG 201* 251* HDL 42 37* LDLCALC 91 117* Recent Labs Component Name 10/20/22 1015 HGBA1C 6.0* Recent Labs Component Name 11/04/22 0553 11/02/22 2221 11/02/22 0132 11/01/22 0003 NA 139 138 138 139 POTASSIUM 3.6 3.9 4.1 3.7 CL 104 103 108* 105 CO2 25 23 22 25 BUN 9 11 10 8 CREATININE 0.56 0.55* 0.48* 0.56 CALCIUM 8.6 8.9 8.6 8.7 MAGNESIUM 2.0 1.9 2.0 2.1 PHOS 3.8 4.2 4.5 4.1 Recent Labs Component Name 11/02/22 2221 11/02/22 0132 11/01/22 0003 10/31/22 0022 WBC 13.3* 19.3* 20.6* 19.6* HGB 10.3* 10.0* 10.1* 9.9* HCT 32.0* 31.1* 31.6* 30.4* PLTCOUNT 405* 400 437* 442* RBC 3.44* 3.32* 3.41* 3.30* Recent Labs Component Name 11/04/22 0931 11/04/22 0553 11/03/22 2353 11/03/22 1048 11/03/22 0449 PT - 14.5 14.2 - 15.1* INR - 1.1 1.1 - 1.2 PTT 53.0* 96.7* 77.9* - 89.3* - = values in this interval not displayed. Recent Labs Component Name 10/30/22 1333 10/30/22 1259 10/21/22 0801 10/20/22 2246 PH 7.40 7.33* 7.40 7.36 PCO2 39 49* 31* 32* PO2 228* 208* 143* 179* FIO2 - - 30.0 40.0 No data found. Micro: Microbiology Results (Displays last 21 days for this encounter ONLY) Procedure Component Value - Date/Time CULTURE URINE [[id number]] (Normal) Collected: 10/27/22 1208 Lab Status: Final result Specimen: Urine Clean Catch Updated: 10/28/22 2236 Culture Urine No growth (<100 CFU/mL) CULTURE BLOOD FUNGUS [[id number]] (Normal) Collected: 10/27/22 1158 Lab Status: Preliminary result Specimen: Blood Peripheral Updated: 10/30/22 0628 Culture No fungus isolated CULTURE BLOOD AFB [[id number]] (Normal) Collected: 10/27/22 115 Lab Status: Preliminary result Specimen: Blood Peripheral Updated: 10/30/22 0750 Culture No acid-fast bacillus isolated BARTONELLA SPECIES PCR [[id number]] Collected: 10/27/221157 Lab Status: Final result Specimen: Blood Updated: 11/01/22 1638 Bartonella Source Plasma Bartonella Species by PCR Not Detected Comment: NOT DETECTED - A negative result does not rule out the presence of PCR inhibitors in the patient specimen or assay specific nucleic acid in concentrations below the level of detection by the assay. INTERPRETIVE INFORMATION: Bartonella Species Detection by PCR This test was developed and its performance characteristics determined by [facility]. It has not been cleared or approved by the [place] Food and Drug Administration. This test was performed in a CLIA certified laboratory and is intended for clinical purposes. Performed By: [facility] [address] [place] [id number] Microfilm Mounter: Boo Bond MD, PhD CLIA Number: [id number] CULTURE BLOOD [[id number]] (Normal) Collected: 10/25/22 0900 Lab Status: Final result Specimen: Blood Peripheral Updated: 10/30/22 1330 Culture No growth day 5 CULTURE BLOOD [[id number]] (Normal) Collected: 10/24/22 1313 Lab Status: Final result Specimen: Blood Peripheral Updated: 10/29/22 1632 Culture No growth day 5 MRSA DNA PCR [[id number]] (Normal) Collected: 10/23/22 1234 Lab Status: Final result Specimen: Microbiology from Nasal Updated: 10/23/22 2044 MRSA DNA by PCR Not detected Narrative: Methicillin-resistant Staphylococcus aureus (MRSA) DNA is not detected (presumed not colonized withMRSA). CULTURE BLOOD [[id number]] (Normal) Collected: 10/23/22 1216 Lab Status: Final result Specimen: Blood Peripheral Updated: 10/28/22 1702 Culture No growth day 5 CULTURE BLOOD [[id number]] (Normal) Collected: 10/23/22 1205 Lab Status: Final result Specimen: Blood Peripheral Updated: 10/28/22 1702 Culture No growth day 5 Length of stay: 16 Problem List Right middle cerebral artery stroke (CMS/HCC) (POA: Unknown) Acute cerebrovascular accident (CVA) due to embolism of right middle cerebral artery (CMS/HCC) (POA: Yes) Nihss score 9 (POA: Yes) Received intravenous tissue plasminogen activator (tPA) in emergency department (POA: Yes) GERD (gastroesophageal reflux disease) (POA: Yes) Hemianopsia (POA: Yes) Weakness (POA: Yes) Left-sided sensory deficit present (POA: Yes) Gaze palsy (POA: Yes) Migraine (POA: Unknown) Hypertension (POA: Unknown) Presence of externally removable percutaneous endoscopic gastrostomy (PEG) tube (CMS/HCC) (POA: Unknown) Present on Admission: ??? Hemianopsia ??? Weakness ??? Left-sided sensory deficit present ??? Gaze palsy ??? Acute cerebrovascular accident (CVA) due to embolism of right middle cerebral artery (CMS/HCC) ??? Nihss score 9 ??? Received intravenous tissue plasminogen activator (tPA) in emergency department ??? GERD (gastroesophageal reflux disease) Routine multidisciplinary rounds were completed today with the presence of the primary team staff, residents, PT/OT/SIGNALING PROJECT ENGINEER and CM/SW. Jaime Drew MD Vascular and Interventional Neurology * Jovanni Mcgrath, PharmD - 11/04/2022 12:47 PM CDT ACTIVE CONSULTS TO PHARMACY/DISEASE STATE MONITORING Pharmacy Consult: Vancomycin ASSESSMENT/PLAN Indication: suspected infective endocarditis c/b septic emboli to [facility] Goal Trough: 15-20 mcg/ml ID consulted/following: Yes Assessment: Day of treatment: 11 End of treatment date: TBD; per ID, can stop vancomycin once blood cultures are finalized (will plan for 4 weeks of ceftriaxone and doxycycline -- EOT 11/22) Current dosing regimen: 1500 mg, Q8 hr Renal assessment: considered stable at this time as patient has Estimated Creatinine Clearance: 149.5 mL/min (by C-G formula based on SCr of 0.56 mg/dL). MRSA positive/other pertinent micro: Yes, NGTD Trough level on 11/04 at 0931 was 15.3 mcg/ml. Recent Labs Component Name 11/04/22 0931 11/02/22 0917 10/31/22 0948 10/28/22 0920 VANCTROUGH 15.3 13.2 25.4* 16.5 Using steady state pharmacokinetic calculations, extrapolated true trough = 14.5 mcg/mL and is therapeutic to goal Plan Dosing: Will continue current regimen to target goal level: 15-20 mcg/ml. Monitoring Will order a vancomycin trough level prior to subsequent maintenance dose on 11/08 at 0900 and adjust regimen if indicated. Continue to monitor patient???s renal function and cultures as needed. Jovanni Mcgrath, PharmD 12:41 PM 11/04/2022 [facility] Vancomycin Guideline SUBJECTIVE/OBJECTIVE Consuelo Darby is a 42 year old female. The primary encounter diagnosis was Right middle cerebralartery stroke (CMS/HCC). Diagnoses of Weakness, Gaze palsy, Hemianopsia, Left-sided sensory deficitpresent, Dysarthria, At high risk for bleeding after thrombolytic therapy, Acute cerebrovascular accident (CVA) due to embolism of right middle cerebral artery (CMS/HCC), Nihss score 9, Aortic valve vegetation, Occlusion of external iliac artery (CMS/HCC), Cold extremity without peripheral vasculardisease, Acute lower limb ischemia, Leukocytosis, unspecified type, Received intravenous tissue plasminogen activator (tPA) in emergency department, Hypoxia, Ischemia, Primary hypertension, Iliac artery occlusion, right (CMS/HCC), and Presence of externally removable percutaneous endoscopic gastrostomy (PEG) tube (CMS/HCC) were also pertinent to this visit. Height: 5' 4 (162.6 cm) Wt 95.3 kg (210 lb) Body mass index is 36.05 kg/m??. Recent Labs Component Name 11/04/22 0553 11/02/22 2221 11/02/22 0132 11/01/22 0003 10/31/22 0022 CREATININE 0.56 0.55* 0.48* 0.56 0.56 BUN 9 11 10 8 8 WBC - 13.3* 19.3* 20.6* 19.6* @[id number]@ Dialysis Orders (72h ago, onward) None Vancomycin Administrations from MAY (last 72 hours) Date/Time Action Medication Dose Rate 11/04/22 1121 $ New Bag/Syringe vancomycin (Vancocin) 1,500 mg in 500 mL NaCl IVPB Premix 1,500 mg 333.33 mL/hr 11/04/22 0156 $ New Bag/Syringe vancomycin (Vancocin) 1,500 mg in 500 mL NaCl IVPB Premix 1,500 mg 333.33 mL/hr 11/03/22 1815 $ New Bag/Syringe vancomycin (Vancocin) 1,500 mg in 500 mL NaCl IVPB Premix 1,500 mg 333.33 mL/hr 11/03/22 0918 $ New Bag/Syringe vancomycin (Vancocin) 1,500 mg in 500 mL NaCl IVPB Premix 1,500 mg 333.33 mL/hr 11/03/22 0329 $ New Bag/Syringe vancomycin (Vancocin) 1,500 mg in 500 mL NaCl IVPB Premix 1,500 mg 333.33 mL/hr 11/02/22 1848 $ New Bag/Syringe vancomycin (Vancocin) 1,500 mg in 500 mL NaCl IVPB Premix 1,500 mg 333.33 mL/hr 11/02/22 1103 $ New Bag/Syringe vancomycin (Vancocin) 1,500 mg in 500 mL NaCl IVPB Premix 1,500 mg 333.33 mL/hr 11/02/22 0024 $ New Bag/Syringe vancomycin (Vancocin) 1,500 mg in 500 mL NaCl IVPB Premix 1,500 mg 333.33 mL/hr 11/01/22 1634 $ New Bag/Syringe vancomycin (Vancocin) 1,500 mg in 500 mL NaCl IVPB Premix 1,500 mg 333.33 mL/hr * Dunia Crawford MSW - 11/04/2022 12:46 PM CDT Care Coordination Progress Note Anticipated level of care at discharge: Acute Rehab Facility: Anticipated level of care provider: None: Anticipated Discharge Date: 11/03/22: Discharge Plan: SW spoke with pts who is agreeable to private room at [facility] if it becomes available before [facility] liaison aware and following for admission. Orientation Level: Oriented to Person: Family Support (Name and Phone): Extended Emergency Contact Information Primary Emergency Contact: Hi Darby Address: [address] [place] [address] [place] [address] [facility] Relation: Spouse Secondary Emergency Contact: Sandra Disla [facility] Mobile Relation: Mother Transportation at Discharge: Ambulance: READMISSION RISK SCORE is 16 at 12:46 PM 11/04/2022.: Name: Dunia JAYLENE Crawford * Bess Triana COTA - 11/04/2022 11:[address] [facility] Occupational Therapy Splint Check Note Patient Name Consuelo Darby Date of 1980 Age [age] year old Type of Splint: Left foot drop and resting hand Splint Issued by: Not applicable-follow up visit Splint Check Completed: No issues noted. Skin intact and splint fitting appropriately Treatment Plan: Telephone Answering Service Operator education completed.; 2 hrs on 2 hrs off. 11/04/2022 * Jovanni Mcgrath PharmD - 11/04/2022 10:20 AM CDT ACTIVE CONSULTS TO PHARMACY/DISEASE STATE MONITORING Pharmacy Consult: Warfarin Management ASSESSMENT/PLAN Warfarin Indication for anticoagulation: DVT and Ischemic Stroke due to septic emboli Warfarin schedule prior to this encounter: New start Warfarin Dose History Date INR Dose (mg) Comments 11/03 1.2 5 mg New start with heparin bridge Goal INR: 2.0 - 3.0 Today's INR: Subtherapeutic Pertinent medications during hospitalization: lansoprazole may increase warfarin concentration Plan: 1. Warfarin dose: 5 mg X 1 2. Daily INR 3. Bridging therapy with heparin emely @IMAN@ Consuelo Darby is a 42 year old female. The primary encounter diagnosis was Right middle cerebralartery stroke (CMS/HCC). Diagnoses of Weakness, Gaze palsy, Hemianopsia, Left-sided sensory deficitpresent, Dysarthria, At high risk for bleeding after thrombolytic therapy, Acute cerebrovascular accident (CVA) due to embolism of right middle cerebral artery (CMS/HCC), Nihss score 9, Aortic valve vegetation, Occlusion of external iliac artery (CMS/HCC), Cold extremity without peripheral vasculardisease, Acute lower limb ischemia, Leukocytosis, unspecified type, Received intravenous tissue plasminogen activator (tPA) in emergency department, Hypoxia, Ischemia, Primary hypertension, Iliac artery occlusion, right (CMS/HCC), and Presence of externally removable percutaneous endoscopic gastrostomy (PEG) tube (CMS/HCC) were also pertinent to this visit. Height: 5' 4 (162.6 cm) Wt 95.3 kg (210 lb) Body mass index is 36.05 kg/m??. Serum creatinine: 0.56 mg/dL 11/04/22 0553 Estimated creatinine clearance: 149.5 mL/min @SOEND@ * Vickie Muller MD - 11/04/2022 9:07 AM CDT Stroke Service Daily Progress Note Consuelo Darby Age: [age] year old Date of : 1980 Date of Admission: 10/19/2022 Hospital Day: 16 Subjective Consuelo Darby is a 41yo woman hemiplegic migraine, GERD, GENESIS. who developed acute onset L sided weakness, L-sided sensory deficits, and dysarthria. L sided weakness resolved in route and dysarthria improved in route. On arrival patient noted to hae Amy florez plasy, L hemainopsia, mild dysarthria, andextinction. NIHSS: 7. S/p TNK and TICI2b revascularization of the R MCA M1 occlusion.Repeat CTH showing edema in R MCA territory. On 10/20/22 patient taken for hemicraniectomy, post-op CTH showing stable midline shift. Initial hypercoag work up negative, repeat in 2 months. -10/23- SARAH concerning for aortic cusp vegetations. [...] by GI team while evaluating her for G tube 11/01 CT A/P obtained and no abscess was identified in the abdominal area. Postsurgical changes after vascular surgery. 11/02 GI to take her to OR for G tube. Ready TTF. Interval History: Warfarin bridge. Bumped her head on hemicrani side yesterday and now having eye discomfort on the same side. Will discuss with NSGY. Objective Patient Vitals for the past 24 hrs: BP Temp Temp src Pulse Resp SpO2 11/04/22 0737 162/70 (!) 101 ??F (38.3 ??C) Axillary 100 19 96 % 11/04/22 0400 127/71 99.5 ??F (37.5 ??C) Axillary 102 -- -- 11/04/22 0015 153/80 -- -- 68 18 98 % 11/03/222008 144/60 98.7 ??F (37.1 ??C) Axillary 87 16 96 % 11/03/22 1228 148/77 -- -- 91 18 96 % 11/03/22 1221 173/85 (!) 100.7 ??F (38.2 ??C) Axillary 99 18 99 % Intake/Output Summary (Last 24 hours) at 11/04/2022 0907 Last data filed at 11/04/2022 0559 Gross per 24 hour Intake 697 ml Output 2950 ml Net -2253 ml Exam: Cortical Function Mental Status Awake, alert, follows commands Orientation REYNOLD Language Aphasia Visual Powell Intact bilaterally to confrontation Neglect No visual neglect noted, no tactile neglect noted Cranial Nerves II Pupils 3 mm and bilaterally reactive to light. Fundoscopic exam not performed. VIII Hearing is intact bilaterally to voice. III/IV/ Extraocular muscles intact. No diplopia, ptosis, nystagmus or convergence abnormalities noted. IX/X REYNOLD V REYNOLD XI Head turning and shoulder shrug are intact. VII L facial palsy XII Tongue is midline with normal movements and no atrophy noted. Motor Function Movement No abnormalities noted Bulk No abnormalities noted Tone No abnormalities noted Moves RUE and RLE, tries to withdraw to pain in LUE and LLE Sensory Light Touch REYNOLD Noxious Stimuli Symmetric and intact bilaterally Labs: Recent Labs Component Name 11/02/22 2221 11/02/22 0132 11/01/22 0003 10/23/22 0129 10/22/22 0153 WBC 13.3* 19.3* 20.6* - - RBC 3.44* 3.32* 3.41* - - HGB 10.3* 10.0* 10.1* - - HCT 32.0* 31.1* 31.6* - - PLT - - - - 199 - = values in this interval not displayed. Recent Labs Component Name 11/04/22 0553 11/02/22 2221 11/02/22 0132 NA 139 138 138 CL 104 103 108* CO2 BUN 9 11 10 CREATININE 0.56 0.55* 0.48* CALCIUM 8.6 8.9 8.6 No results for input(s): MG in the last 72683 hours. Recent Labs Component Name 11/04/22 0553 11/02/221 11/02/22 0132 PHOS 3.8 4.2 4.5 Recent Labs Component Name 11/04/22 0553 11/03/22 2353 11/03/22 1626 11/03/22 1048 11/03/22 0449 PT 14.5 14.2 - - 15.1* INR 1.1 1.1 - - 1.2 PTT 96.7* 77.9* 58.8* - 89.3* - = values in this interval not displayed. No results for input(s): A1C in the last 90930 hours. Recent Labs Component Name 10/20/22 0302 06/15/22 0757 CHOL 173 204* HDL 42 37* LDLCALC 91 117* TRIG 201* 251* Recent Labs Component Name 06/15/22 0757 TSH 1.873 No results for input(s): CKMB, CKTOTAL, CKMB, TROPONINI, BNP in the last [address] ANGIO BRAIN NECK STROKE Result Date: 10/19/2022 IMPRESSION: 1. Occlusion of the distal M1 [...] Lonnie Rae MD on 10/19/2022 8:[address] BRAIN - Stroke Result Date: 10/19/2022 IMPRESSION: 1. No acute intracranial hemorrhage. 2. [...] Lonnie Rae MD on 10/19/2022 8:15 AM Right middle cerebral artery stroke (CMS/HCC) (POA: Unknown) Acute cerebrovascular accident (CVA) due to embolism of right middle cerebral artery (CMS/HCC) (POA: Yes) Nihss score 9 (POA: Yes) Received intravenous tissue plasminogen activator (tPA) in emergency department (POA: Yes) GERD (gastroesophageal reflux disease) (POA: Yes) Hemianopsia (POA: Yes) Weakness (POA: Yes) Left-sided sensory deficit present (POA: Yes) Gaze palsy (POA: Yes) Migraine (POA: Unknown) Hypertension (POA: Unknown) Presence of externally removable percutaneous endoscopic gastrostomy (PEG) tube (CMS/HCC) (POA: Unknown) Assessment ??Consuelo Darby is a 41 year old female who presented on 10/19 with Right MCA syndrome s/p TNK. CTA 1 M1 occlusion. S/P mechanical thrombectomy with R M1 recanalization and TICI2b. CT 10/20/22 with edema and mild shift. S/P decompressive right hemicraniectomy. Echo showed a mobile aortic valve vege tation. MRI brain with scattered cortical R hemisphere infarcts with petechiae. ?? Stroke Type: Ischemic Stroke Mechanism: Cardioembolic ?? 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 EOT 11/22 R illiac and common femoral artery occlusion - s/p R common femoral thrombectomy and patch angioplasty by vas surgery ?? HTN - home metop Blood Pressure Goals: SBP <160, map >70 Vit D deficiency - Vit D 2,000 U daily Individual Modifiable Risk Factors Hypertension: no Hyperlipidemia: no Diabetes: no Atrial Fibrillation: no Tobacco: no Vickie Muller MD Neurology Resident * Jabari Black, PharmD - 11/03/2022 8:44 PM CDT ACTIVE CONSULTS TO PHARMACY/DISEASE STATE MONITORING Pharmacy Consult: Warfarin Management ASSESSMENT/PLAN Warfarin Indication for anticoagulation: DVT & Ischemic Stroke due to septic emboli Warfarin schedule prior to this encounter: N/A - New Start Warfarin Dose History Date INR Dose (mg) Comments 11/03 1.2 5 mg New start w/ heparin bridge Goal INR: 2.0 - 3.0 Today's INR: Subtherapeutic Pertinent medications during hospitalization: - lansoprazole and warfarin may increase INR & bleeding Plan: 1. Warfarin dose: 5 mg X 1 2. Daily INR 3. Bridging therapy with heparin drip SUBJECTIVE/OBJECTIVE Consuelo Darby is a 42 year old female. The primary encounter diagnosis was Right middle cerebralartery stroke (CMS/HCC). Diagnoses of Weakness, Gaze palsy, Hemianopsia, Left-sided sensory deficitpresent, Dysarthria, At high risk for bleeding after thrombolytic therapy, Acute cerebrovascular accident (CVA) due to embolism of right middle cerebral artery (CMS/HCC), Nihss score 9, Aortic valve vegetation, Occlusion of external iliac artery (CMS/HCC), Cold extremity without peripheral vasculardisease, Acute lower limb ischemia, Leukocytosis, unspecified type, Received intravenous tissue plasminogen activator (tPA) in emergency department, Hypoxia, Ischemia, Primary hypertension, Iliac artery occlusion, right (CMS/HCC), and Presence of externally removable percutaneous endoscopic gastrostomy (PEG) tube (CMS/HCC) were also pertinent to this visit. Height: 5' 4 (162.6 cm) Wt 95.3 kg (210 lb) Body mass index is 36.05 kg/m??. Serum creatinine: 0.55 mg/dL (L) 11/02/222220 Estimated creatinine clearance: 152.2 mL/min (A) * Vickie Muller MD - 11/03/2022 5:00 PM CDT Stroke Service Daily Progress Note Consuelo Darby Age: [age] year old Date of : 1980 Date of Admission: 10/19/2022 Hospital Day: 15 Subjective Consuelo Darby is a 41yo woman hemiplegic migraine, GERD, GENESIS. who developed acute onset L sided weakness, L-sided sensory deficits, and dysarthria. L sided weakness resolved in route and dysarthria improved in route. On arrival patient noted to hae L gaze plasy, L hemainopsia, mild dysarthria, andextinction. NIHSS: 7. S/p TNK and TICI2b revascularization of the R MCA M1 occlusion.Repeat CTH showing edema in R MCA territory. On 10/20/22 patient taken for hemicraniectomy, post-op CTH showing stable midline shift. Initial hypercoag work up negative, repeat in 2 months. -10/23- SARAH concerning for aortic cusp vegetations. [...] by GI team while evaluating her for G tube 11/01 CT A/P obtained and no abscess was identified in the abdominal area. Postsurgical changes after vascular surgery. 11/02 GI to take her to OR for G tube. Ready TTF. Interval History: Warfarin bridge Objective Patient Vitals for the past 24 hrs: BP Temp Temp src Pulse Resp SpO2 11/03/22 1228 148/77 -- -- 91 18 96 % 11/03/22 1221 173/85 (!) 100.7 ??F (38.2 ??C) Axillary 99 18 99 % 11/03/22 0738 157/93 98.9 ??F (37.2 ??C) Oral 109 18 97 % 11/03/22 0439 151/84 99.4 ??F (37.4 ??C) Axillary 103 -- 98 % 11/03/22 0000 118/65 98 ??F (36.7 ??C) Axillary 84 -- 100 % 11/02/22 2152 143/80 -- -- 100 -- -- 11/02/22 1950 153/79 98.5 ??F (36.9 ??C) Axillary 102 18 100 % Intake/Output Summary (Last 24 hours) at 11/03/2022 1701 Last data filed at 11/03/2022 1200 Gross per 24 hour Intake 30 ml Output 1900 ml Net -1870 ml Exam: Cortical Function Mental Status Awake, alert, follows commands Orientation REYNOLD Language Aphasia Visual Powell Intact bilaterally to confrontation Neglect No visual neglect noted, no tactile neglect noted Cranial Nerves II Pupils 3 mm and bilaterally reactive to light. Fundoscopic exam not performed. VIII Hearing is intact bilaterally to voice. III/IV/ Extraocular muscles intact. No diplopia, ptosis, nystagmus or convergence abnormalities noted. IX/X REYNOLD V REYNOLD XI Head turning and shoulder shrug are intact. VII L facial palsy XII Tongue is midline with normal movements and no atrophy noted. Motor Function Movement No abnormalities noted Bulk No abnormalities noted Tone No abnormalities noted Moves RUE and RLE, tries to withdraw to pain in LUE and LLE Sensory Light Touch REYNOLD Noxious Stimuli Symmetric and intact bilaterally Labs: Recent Labs Component Name 11/02/22 22211/02/22 0132 11/01/22 0003 10/23/22 0129 10/22/22 0153 WBC 13.3* 19.3* 20.6* - - RBC 3.44* 3.32* 3.41* - - HGB 10.3* 10.0* 10.1* - - HCT 32.0* 31.1* 31.6* - - PLT - - - - 199 - = values in this interval not displayed. Recent Labs Component Name 11/02/22222011/02/22 0132 11/01/22 0003 NA 138 138 139 CL 103 108* 105 CO2 BUN 11 10 8 CREATININE 0.55* 0.48* 0.56 CALCIUM 8.9 8.6 8.7 No results for input(s): MG in the last 41791 hours. Recent Labs Component Name 11/02/22222011/02/22 0132 11/01/22 0003 PHOS 4.2 4.5 4.1 Recent Labs Component Name 11/03/22 1048 11/03/22 0449 11/02/22 22211/02/22 0445 11/02/22 0132 11/01/22 0848 11/01/22 0240 PT - 15.1* - - 15.1* - 14.3 INR - 1.2 - - 1.2 - 1.1 PTT 84.5* 89.3* 58.3* - 48.3* - 67.7* - = values in this interval not displayed. No results for input(s): A1C in the last 23723 hours. Recent Labs Component Name 10/20/22 0302 06/15/22 0757 CHOL 173 204* HDL 42 37* LDLCALC 91 117* TRIG 201* 251* Recent Labs Component Name 06/15/22 0757 TSH 1.873 No results for input(s): CKMB, CKTOTAL, CKMB, TROPONINI, BNP in the last [address] ANGIO BRAIN NECK STROKE Result Date: 10/19/2022 IMPRESSION: 1. Occlusion of the distal M1 [...] Lonnie Rae MD on 10/19/2022 8:[address] BRAIN - Stroke Result Date: 10/19/2022 IMPRESSION: 1. No acute intracranial hemorrhage. 2. [...] Lonnie Rae MD on 10/19/2022 8:15 AM Right middle cerebral artery stroke (CMS/HCC) (POA: Unknown) Acute cerebrovascular accident (CVA) due to embolism of right middle cerebral artery (CMS/HCC) (POA: Yes) Nihss score 9 (POA: Yes) Received intravenous tissue plasminogen activator (tPA) in emergency department (POA: Yes) GERD (gastroesophageal reflux disease) (POA: Yes) Hemianopsia (POA: Yes) Weakness (POA: Yes) Left-sided sensory deficit present (POA: Yes) Gaze palsy (POA: Yes) Migraine (POA: Unknown) Hypertension (POA: Unknown) Presence of externally removable percutaneous endoscopic gastrostomy (PEG) tube (CMS/HCC) (POA: Unknown) Assessment ??Consuelo Darby is a 41 year old female who presented on 10/19 with Right MCA syndrome s/p TNK. CTA 1 M1 occlusion. S/P mechanical thrombectomy with R M1 recanalization and TICI2b. CT 10/20/22 with edema and mild shift. S/P decompressive right hemicraniectomy. Echo showed a mobile aortic valve vege tation. MRI brain with scattered cortical R hemisphere infarcts with petechiae. ?? Stroke Type: Ischemic Stroke Mechanism: Cardioembolic ?? 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 EOT 11/22 R illiac and common femoral artery occlusion - s/p R common femoral thrombectomy and patch angioplasty by vasc surgery ?? HTN - home metop Blood Pressure Goals: SBP <160, map >70 Vit D deficiency - Vit D 2,000 U daily Individual Modifiable Risk Factors Hypertension: no Hyperlipidemia: no Diabetes: no Atrial Fibrillation: no Tobacco: no Vickie Muller MD Neurology Resident Associated attestation - Jim Walter MD - 11/09/2022 10:24 AM CDT NEUROVASCULAR SERVICE ATTESTATION I saw and examined the patient with the Resident. I have verified all details of the Resident's note and agree with the Resident's documentation. Date of Service: 11/03/2022 Jim Walter MD * Shania Troy, OT - 11/03/2022 3:16 PM CDT [facility] Physical Medicine and Rehabilitation Occupational Therapy Progress Note Patient: Consuelo Darby Med Record Number: [id number] Date of : 1980 Age: [age] year old PPE worn by staff: gloves;mask - surgical services coordinator: Cheli Recommendations: Discharge OT Discharge Recommendations: Patient would benefit from intensive 3-hour multidisciplinary therapy This recommendation is made due to ongoing intensive OT functional needs: not at baseline due to impaired ability to complete ADL's;functional mobility is significantly below baseline;patient demonstrates a significant functional decline and would benefit from skilled therapy intervention to restore function;patient has the ability to progress and demonstrate measurable gains as a result of skilled therapy Recommended Transportation Method: Stretcher/Ambulance Nurse and Physical Therapy contacted regarding patient status and/or discharge plan. Activity Level: up ad bigg PRECAUTIONS: Falls, skin, helmet, SBP <160 SUBJECTIVE: Subjective: Pt nodding head yes/no and giving thumbs up/down to communicate. Pt able to write pain level on white board, however further writing attempts illegible. Pain Assessment: Pain Location #1 Pain Scale/Observation: Numeric (0-10) Pain Rating Score #1: 6 (pt writing 6/10 on whiteboard) Sedation Level #1: 1-Awake and alert Pain Location : Abdomen Pain Intervention(s): (RN present to administer pain medication during session) OBJECTIVE: At start of therapy session, patient found in bed General Appearance: Pt in bed upon arrival in [facility]. LDA: PIV, puentes catheter, PEG Mental Status/Cognition: Level of Consciousness-Adult: Alert Orientation Level: Oriented to Person Cognition: Follows one step commands;Attention/concentration-decreased;Processing-delayed Mobility: a gait belt and non-slip socks were used for all out of bed activity this date. Bed Mobility: Supine to Sit: Maximum Assistance;X 2;Requires Verbal Cues for Safety;Requires Physical Cues for Safety;Requires Verbal Cues for Technique;Requires Physical Cues for Technique (pt able to mobilize RLE over EOB) Sit to Supine: Total Assistance;X 2 Transfers: Sit to Stand: Activity Does Not Occur Stand to Sit: Activity Does Not Occur Balance: Max A for static sitting EOB. Pt with posterior lean and minimal attempts at self correcting to midline. Pt observed with R forward cervical flexion, able to assist intermittently with initiating bringing head/neck to neutral. Pt able to reach into shoulder flexion with RUE to grab 's hand 2x, then able to follow one step commands to hold 's hand and raise his arm up 3x via pt's RUE. Pt able to reach forward with RUE to give a hug while sitting EOB. Activities of Daily Living: Oral Facial Hygiene: Minimal Assistance;Moderate Assistance (to perform oral suctioning with yaunker) Splint Check: L foot drop and L resting hand splint. Splints fitting appropriately and skin integrity intact. ACTIVITY TOLERANCE: Patient's activity tolerance: good Modified [place]: Current Modified [place] Score: 5 AM-PAC 6 Clicks Daily Activity Raw Score:: 9 TREATMENT/INTERVENTIONS: ADL training Cognitive retraining Functional transfer training Endurance training Bed mobility Energy conservation Safety awareness EDUCATION: While performing OT, Patient and spouse, mother and sister was instructed in:functional mobility training, self-care training, cognitive retraining, energy conservation, safety awareness/fall precautions , home exercise program, use of call light Presented to patient who demonstrates Questionable understanding of instructions given. INFORMED CONSENT TO TREATMENT: Plan of care is discussed but patient with questionable understanding. ASSESSMENT: Patient continues to benefit from skilled Occupational Therapy to achieve the following functional goals. Short Term Goals: Goal Formation With patient/family Patient will increase orientation to?person, place, time and situation Patient will perform supine to/from sit??with moderate assist and X 2 Patient will tolerate treatment??20 minutes, with good endurance and with minimal pain Environmental Marketer Goal(s): Patient to discharge to appropriate next level of inpatient care Plan: Patient continues to benefit from skilled therapy services., Continue with goals as established. If patient is discharged from the facility, this note serves as a discharge summary if further occupational therapy visits did not occur. Refer to filed flowsheet for further details. Following therapy session, patient left in bed, with bed alarm on , with call light within reach, with family in room, with RNMichelle aware, with therapy cues visible on white board. * Becky Hinojosa RN - 11/03/2022 3:[address] [facility] Rehab has been accepted, Insurance authorization obtained, pending private room. Pt agreeable to [facility] location. Please contact weekend liaison for bed availability if pt is medically ready for transfer. Liaison can be contacted by phone or Rapport Chat. ?? Weekend Liaison: Gianna Lopez Thank you for the referral. Becky Hinojosa RN, BSN Senior Clinical Liaison [facility] [phone] * Mrau Mcduffie RN - 11/03/2022 12:39 PM CDT Care Coordination Progress Note Anticipated level of care at discharge: Acute Rehab Facility: Anticipated level of care provider: None: Anticipated Discharge Date: 11/03/22: Discharge Plan: SW following for [facility] placement. CM met with pt's family at the bedside and they are agreeable with the plan. Orientation Level: Unable to Obtain: Family Support (Name and Phone): Extended Emergency Contact Information Primary Emergency Contact: MehnazHi Address: [address] [place] [address] [place] [address] [facility] Relation: Spouse Secondary Emergency Contact: Sandra Disla [facility] Mobile Relation: Mother Transportation at Discharge: Ambulance: READMISSION RISK SCORE is 16 at 12:39 PM 11/03/2022.: Name: Maru Mcduffie RN [id number] * Salinas Infante MSW - 11/03/2022 10:35 AM CDT SW was notified pt recd for IRF/acute rehab. Previous SW spoke to [facility] and they are following up w/ pt family at bedside to discuss. SW to follow. 1110 - SW notified pt family agreeable to [facility]. SW also called and spoke w/ pt Salo to discuss questions he had regarding pt insurance and disability. SW encouraged Salo to call pt's insurance for specific questions regarding it as SW is unable to answer these. SW also advised we can send a referral to [facility] for disability application and Salo was agreeable. SW to follow. * Ankit Spivey - 11/03/2022 10:14 AM CDT [facility] Physical Medicine and Rehabilitation Physical Therapy Progress Note Patient: Consuelo Darby Med Record Number: [id number] Date of : 1980 Age: [age] year old PPE worn by staff: gloves;mask - procedural PPE worn by patient: gown - patient, clean;socks - clean Tech: Cheli; PT: Rosa Recommendations: Discharge PT Discharge Recommendations: Patient would benefit from intensive 3-hour multidisciplinary therapy This recommendation is made due to ongoing intensive PT functional needs: patient demonstrates a significant functional decline and would benefit from skilled therapy intervention to restore function;patient has the need for more than one skilled therapy service SUBJECTIVE: Subjective: Patient was agreeable to PT treatment by giving thumbs up. Patient reported pain 6/10.Patient denied SOB and dizziness. Pain Assessment: Pain Location #1 Pain Scale/Observation: Faces;Behaviors;Numeric (0-10) (Patient point to adomen and made a gesture for number.) Pain Rating Score #1: 6 Sedation Level #1: 1-Awake and alert Pain Location : Abdomen Relieved By: Rest Pain Intervention(s): Non-pharmacological (RN aware) Non-pharmacological interventions: Rest Behaviors/Assumed Pain Present : Calm;Frowning PRECAUTIONS: Weight Bearing Status: (no restrictions) Activity Level: Activity as Tolerated Other Precautions: falls OBJECTIVE: At start of therapy session, patient found in bed and with no alarm General Appearance: adult female, in NAD LDAs: IV's: Peripheral line, Catheter and PEG Tube Vitals: (*Assess the 3 levels of oxygen saturations both for room air and 02 unless rest on room air is 88% or less). Rest BP: 135/80 HR: 78 Sp02 97% Room Air Observations: Patient denied SOB and dizziness at rest. Mental Status/Cognition: Level of Consciousness-Adult: Alert;Eyes Open Spontaneously Orientation Level: Unable to Obtain Cognition: Follows one step commands Mobility: A gait belt and non-slip socks were used for all out of bed activity this date. Bed Mobility: Rolling: Maximal Assistance to Right;Maximal Assistance to Left;Requires Physical Cues for Safety;Requires Physical Cues for Technique;Other (Comment) (Patient can help with moving RLE close to the edge of bed, no any AROM noticed on LLE.) Supine to Sit: Maximum Assistance;X 2;Requires Verbal Cues for Safety;Requires Verbal Cues for Technique;Requires Physical Cues for Safety;Requires Physical Cues for Technique with HOB in semi-fowlers position Sit to Supine: Total Assistance;X 2;Requires Verbal Cues for Safety;Requires Verbal Cues for Technique;Requires Physical Cues for Safety;Requires Physical Cues for Technique Balance: Sitting - Static: Poor +;With One Upper Extremity Support;Other (Comment) (Patient needs significant support posteriorly to maintain balance.) Sitting - Dynamic: Poor;With Both Upper Extremity's Support;With One Upper Extremity Support ACTIVITY TOLERANCE: Patient's activity tolerance: poor minus. TREATMENT/INTERVENTIONS: bed mobility training, balance activities, monitoring of vitals and cognitive stimulation Modified [place]: Current Modified Maryann Score: 5 AM-PAC 6 Clicks Mobility Raw Score:: 7 EDUCATION: While performing PT, Patient was instructed in:functional mobility training, self-care training, cognitive retraining, energy conservation, safety awareness/fall precautions , discharge planning, use of call light Presented to patient who demonstrates Questionable understanding of instructions given. ASSESSMENT: Patient would benefit from additional Physical Therapy sessions to achieve the following functionalgoals to enhance independence. Short Term Goals: Goal Formation?Patient unable to participate in goal formulation Patient will perform bed mobility??with moderate assist Patient will transfer bed to/from chair??with maximal assist Patient will sit EOB x10 minutes with minimal assist ?? Group Home Goal(s): Patient to discharge to appropriate next level of inpatient care. ?? INFORMED CONSENT TO TREATMENT: Plan of care including recommended therapy, goals and frequency, discussed with patient who understands and agrees to proceed. Equipment Issued: gait belt Plan: Patient continues to benefit from skilled therapy services. If patient is discharged from the facility, this note serves as a discharge summary if further physical therapy visits did not occur. Refer to filed flowsheet for further details. Following therapy session, patient left in bed, with call light within reach, with family in room, with RN in room, with CP in room, with RN aware, with lab pharmacist in room, with therapy cues visible on white board. * Orquidea Pederson RD/MELVA - 11/03/2022 8:12 AM CDT Clinical Nutrition Assessment Brief Synopsis: Patient is at Nutrition Risk; Specific criteria can be found in assessment below Nutrition Plan: NPO+TF (via PEG tube) Jevity 1.5 at 50 ml/hr. Provides 1800 kcal, 77 g protein, 259 g carbohydrate, 912 ml free water. + 150 ml free water flush q 4 hrs or per MD if not on additional IV fluids *Recommend starting at 20 ml and advancing by 10 ml q 4 hrs until toerating at goal rate above. - Do not hold unless residuals >500 as recommended by ASPEN. - Signs of intolerance include: diarrhea, abdominal pain or distention. - Head of bed > 30?? Recommendations to Physician: See above Comments: Pt scheduled for reassesment. Additionally, RD contacted by RN for review of current TF order. Noted pt continues to fail ST swallow eval; s/p PEG tube placement on 11/01. Current TF order for Jevity 1.5 at 10 ml/hr. Last BM 10/30 -- no GI issues noted in chart. Labs reviewed -- lytes wnl. No indication for trickle feeds noted in chart. RD to modify current TF order to above recs, to aid pt in better meeting estimated nutrient needs. Will continue to monitor per clinical nutrition guidelines. Assessment: Med/Surg History and Clinical Diagnoses: 41yo M who developed acute onset L sided weakness, L-sidedsensory deficits, and dysarthria. L sided weakness resolved in route and dysarthria improved in route. On arrival patient noted to L gaze plasy, L hemainopsia, mild dysarthria, and extinction. Height: 162.6 cm (5' 4 ) Weight: 95.3 kg (210 lb) BMI: Body mass index is 36.05 kg/m??. BMI Range: Severely Obese Class 2 IBW/lb (Calculated) Female: 120, Recent Weights/Methods 12/09/2018 0804 01/09/2020 1050 01/10/2021 1117 08/25/2021 0819 02/08/2022 1532 10/19/2022 0803 10/19/2022 0827 10/20/2022 1400 Weight: 81.6 kg (180 lb) 86.5 kg (190 lb 9.6 oz) 80 kg (176 lb 6.4 oz) 84.8 kg (187 lb) 93.3 kg (205 lb 11.2 oz) 95.3 kg (210 lb 1.3 oz) 95.3 kg (210 lb 1.3 oz) 95.3 kg (210 lb) Weight Method (Utilize Scales): Stated -- -- Standing -- -- Bedscale -- Wt Comments: reviewed -- pt needs updated scaled weight Diet order accuracy Current diet order: NPO Current tube feeding order: Jevity 1.5 @ 10 ml/hr Nutrition recommendation: alter/change nutrition order P.O.Intake for the past 48 hrs: No data recorded Supplement(s) Consumed- Last 48 hours None Food Allergies: No known food allergies GI Concerns: None Chewing/Swallowing: Dysphagia Pain affecting intake: No Estimated Needs: KCAL: [id number] (30-35 kcal/kg IBW) Protein (g): 82g (1.5 g/kg IBW) Fluid (ml): 1 ml/kcal Needs based on: (IBW of 54.5kg) Recommended Access Route: TF Laboratory values: Recent Labs Component Name 11/02/22 2221 11/02/22 0132 11/01/22 0003 10/20/22 0302 10/19/22 0824 10/19/22 0808 06/15/22 0757 12/09/18 0812 07/25/18205503/01/16 0817 0000 BUN 11 10 8 - 13 - 12 10 7 9 - CREATININE 0.55* 0.48* 0.56 - 0.84 - 0.74 0.82 0.93 0.60 - NA 138 138 139 - 139 - 138 - - - - POTASSIUM 3.9 4.1 3.7 - 4.2 - 5.1* 3.8 3.8 3.6 - CL 103 108* 105 - 108* - 107 - - - - CO2 23 22 25 - 21* - 23 24 21* 21* - GLUCOSE 101 96 128* - 109 - 104 120* 105 83 - CALCIUM 8.9 8.6 8.7 - 8.9 - 8.9 9.4 9.2 8.1* - PROT - - - - 7.7 - 7.5 - - - - ALB - - - - 3.5 - 3.6 - - - - TBILI - - - - 0.1* - 0.1* - - - - ALKPHOS - - - - 52 - 44 56 52 111 - ALT - - - - 16 - 9 17 12* 21 - AST - - - - 19 - 17 18 20 25 - ANIONGAP 16 12 13 - 14 - 13 12 11 10 - BCR 20 21 14 - 15 - 16 - - - - OSMOLALITY 286 285 288 - 289 - 286 - - - - AGRATIO - - - - 0.8* - 0.9* - - - - EGFR >90 >90 >90 - >90 - >90 >60 >60 >60 - EGFRAFR - - - - - - - >60 >60 >60 - - = values in this interval not displayed. Medications: Current Facility-Administered Medications Medication ??? 0.9% NaCl injection 3 mL And ??? 0.9% NaCl injection 3 mL ??? acetaminophen (Tylenol) tablet 500 mg ??? atorvastatin (Lipitor) tablet 80 mg ??? cefTRIAXone (Rocephin) 2,000 mg in 0.9% NaCl IV 50 mL IVPB ??? diphenhydrAMINE-zinc acetate (Benadryl Extra Strength) 2-0.1 % cream ??? guaiFENesin (Robitussin) solution 10 mL ??? heparin 100 units/mL in dextrose 5 % infusion ??? lansoprazole (Prevacid) suspension 30 mg ??? loratadine (Claritin) tablet 10 mg ??? metoprolol tartrate IR (Lopressor) tablet 25 mg ??? oxyCODONE (immediate release) (Roxicodone) tablet 5 mg ??? polyethylene glycol 3350 (Miralax) packet 17 g ??? senna-docusate (Senokot-S) tablet 1 tablet ??? tamsulosin (Flomax) capsule 0.4 mg ??? vancomycin (Vancocin) 1,500 mg in 500 mL NaCl IVPB Premix ??? vancomycin (Vancocin) IV dose per pharmacy ??? verapamil (Isoptin) tablet 40 mg ??? vitamin D3 (Cholecalciferol) 25 MCG (1000 UNITS) tablet 2,000 Units Skin/Wound: s/p R hemicraniectomy Education needed: Stroke Nutrition Therapy Education Provided: Prior to Discharge Nutrition Care Process (1) Nutrition Diagnostic Statement: Inadequate oral intake related to:: decreased ability to consume or tolerate food and/or fluids due to illness as evidenced by:: oral intake insufficient to meet estimated requirements Nutrition Diagnostic Statement Progress: Nutrition problem continues Nutrition Intervention: Enteral nutrition: Monitoring: TF, labs, meds, BM, weight Evaluation: Nutrition Goal: Total intake will meet estimated nutrient needs Nutrition Goal Timeframe: Throughout stay Nutrition Goal Progress: Continue with current goal Orquidea Pederson RD/MELVA DAILY Ascom: [id number] * Jessica Enriquez RN - 11/03/2022 4:44 AM CDT Problem: ELOPEMENT/ABDUCTION Goal: Risk for elopement &/or abduction during hospitalization is minimized Outcome: Progressing Problem: Pain/Discomfort Goal: Patient uses pharmacological and non-pharmacological pain management strategies. Outcome: Progressing Goal: Patient verbalizes acceptable level of pain relief and ability to engage in desired activity. Outcome: Progressing Problem: Mobility Goal: Patient's mobility/activity will be maintained as optimum level for age, diagnosis and physical limitations Outcome: Progressing Goal: Continuum of care needs are further met through referral to outpatient services when appropriate. Outcome: Progressing Goal: Patient reports the ability to perform Activities of Daily Living. Outcome: Progressing Problem: Communication Impairment/Dysarthria Goal: Ability to express needs and understand communication Outcome: Progressing Problem: Nutrition Goal: Nutritional status is improving Outcome: Progressing Problem: Glycemic Control Goal: Clinical indication of glycemia balance is achieved Outcome: Progressing Problem: Knowledge Deficit,Education,Discharge Plan Goal: The patient/family will understand cerebrovascular disease and its symptoms, treatment and management Outcome: Progressing Problem: Oral Intake: Inadequate oral intake Goal: Total intake will meet estimated nutrient needs Outcome: Progressing Problem: Swallowing Goal: LTG - Patient will tolerate the least restrictive diet consistency to allow for safe consumption of daily meals Outcome: Progressing Goal: STG - Patient will tolerate therapeutic trials of recommended consistency without clincial signs and symptoms of aspiration Outcome: Progressing Goal: STG - Patient will tolerate recommended food and liquid consistencies without clinical signs and symptoms of aspiration Outcome: Progressing Goal: STG - Patient will complete swallowing exercises Outcome: Progressing Goal: STG - Patient/family will complete oral motor exercises for improved bolus control Outcome: Progressing Problem: Transfers Goal: STG - Transfer from bed to chair Outcome: Progressing Problem: Skin Integrity Goal: Skin integrity is maintained or improved Outcome: Progressing Problem: Neurological Deficit Goal: Neurological status is stable or improving Outcome: Progressing * Harper Michaud MD - 11/02/2022 7:57 PM CDT CARDIOLOGY PLAN OF CARE 41 year old??female??with a history of HTN,?Migraines, GERD who presents with R MCA occlusion s/p TNK administration with mechanical thrombectomy with R M1 recanalization that was followed by decompressive right hemicraniectomy after CT from 10/20/22. 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 Started on heparin gtt after infectious and rheumatology work up unremarkable. Called for AC recommendations. -Recommend starting Warfarin with heparin gtt, INR goal 2-3 -f/u CTS recommendations with repeat SARAH Harper Michaud MD 11/02/2022 8:04 PM * Radha Covarrubias RN - 11/02/2022 6:56 PM CDT Problem: ELOPEMENT/ABDUCTION Goal: Risk for elopement &/or abduction during hospitalization is minimized Outcome: Progressing Problem: Pain/Discomfort Goal: Patient uses pharmacological and non-pharmacological pain management strategies. Outcome: Progressing Goal: Patient verbalizes acceptable level of pain relief and ability to engage in desired activity. Outcome: Progressing Problem: Mobility Goal: Patient's mobility/activity will be maintained as optimum level for age, diagnosis and physical limitations Outcome: Progressing Goal: Continuum of care needs are further met through referral to outpatient services when appropriate. Outcome: Progressing Goal: Patient reports the ability to perform Activities of Daily Living. Outcome: Progressing Problem: Communication Impairment/Dysarthria Goal: Ability to express needs and understand communication Outcome: Progressing Problem: Nutrition Goal: Nutritional status is improving Outcome: Progressing Problem: Glycemic Control Goal: Clinical indication of glycemia balance is achieved Outcome: Progressing Problem: Knowledge Deficit,Education,Discharge Plan Goal: The patient/family will understand cerebrovascular disease and its symptoms, treatment and management Outcome: Progressing Problem: Oral Intake: Inadequate oral intake Goal: Total intake will meet estimated nutrient needs Outcome: Progressing Problem: Swallowing Goal: LTG - Patient will tolerate the least restrictive diet consistency to allow for safe consumption of daily meals Outcome: Progressing Goal: STG - Patient will participate in instrumental assessment of swallowing as appropriate Outcome: Progressing Goal: STG - Patient will tolerate therapeutic trials of recommended consistency without clincial signs and symptoms of aspiration Outcome: Progressing Goal: STG - Patient will tolerate recommended food and liquid consistencies without clinical signs and symptoms of aspiration Outcome: Progressing Goal: STG - Patient will complete swallowing exercises Outcome: Progressing Goal: STG - Patient/family will complete oral motor exercises for improved bolus control Outcome: Progressing Problem: Transfers Goal: STG - Transfer from bed to chair Outcome: Progressing Problem: Risk for Violence: Self-Directed or Other Directed Description: Diagnosis: Risk for self-directed Violence or Risk for Directed Violence Risk Factors: Biochemical/neurologic imbalances, impulsivity, manic excitement, psychotic symptomatology, rage reaction, restlessness Possibly Evidenced By: agitated behaviors, delusional thinking, hallucinations, loud/threatening/profane speech, poor impulse control, provocative behaviors, verbal threats against others, verbal threats against self Goal: Patient will verbalize control of feelings. Outcome: Progressing Goal: Patient will respond to interventions when potential or actual loss of control occurs. Outcome: Progressing Goal: Patient will refrain from provoking others to physical harm. Outcome: Progressing Goal: Patient will display nonviolent behaviors toward others in the hospital, with the aid of medications and nursing interventions. Outcome: Progressing Goal: Patient will seek help when experiencing aggressive impulses. Outcome: Progressing Goal: Patient will refrain from verbal threats and loud, profrane language toward others. Outcome: Progressing Goal: Patient will be safe and free from injury. Outcome: Progressing Problem: Skin Integrity Goal: Skin integrity is maintained or improved Outcome: Progressing Problem: Neurological Deficit Goal: Neurological status is stable or improving Outcome: Progressing * Shania Troy OT - 11/02/2022 12:52 PM CDT [facility] Physical Medicine and Rehabilitation Occupational Therapy Progress Note Patient: Consuelo Darby Med Record Number: [id number] Date of : 1980 Age: [age] year old PPE worn by staff: gloves;mask - surgical Co-treatment performed with PT (PT student) this date to safely progress functional activity. Reevaluation not indicated this date s/p PEG as pt with no significant change in functional ability. Recommendations: Discharge OT Discharge Recommendations: Patient would benefit from intensive 3-hour multidisciplinary therapy This recommendation is made due to ongoing intensive OT functional needs: not at baseline due to impaired ability to complete ADL's;functional mobility is significantly below baseline;patient demonstrates a significant functional decline and would benefit from skilled therapy intervention to restore function;patient has the ability to progress and demonstrate measurable gains as a result of skilled therapy Recommended Transportation Method: Stretcher/Ambulance Nurse and Physical Therapy contacted regarding patient status and/or discharge plan. Activity Level: up ad bigg PRECAUTIONS: Falls, skin, helmet, SBP <160 SUBJECTIVE: Subjective: Pt nodding head appropriately (intermittently) to answer questions, or giving thumbs up/down to communicate yes/no. Pain Assessment: Pain Location #1 Pain Scale/Observation: Numeric (0-10) Pain Rating Score #1: 5 (pt indicating pain # by holding up fingers) Sedation Level #1: 1-Awake and alert Pain Location : Abdomen (PEG site) OBJECTIVE: At start of therapy session, patient found in bed General Appearance: Pt in bed upon arrival in [facility]. LDA: PIV, puentes catheter, PEG Vitals: (*Assess the 3 levels of oxygen saturations both for room air and 02 unless rest on room air is 88% or less). Rest BP: 122/62 HR: 76 Sp02 97% Room Air Post Activity BP: 133/79 HR: 83 Sp02 98% Room Air Observations: VSS, pt denying dizziness/lightheadedness during session. Mental Status/Cognition: Level of Consciousness-Adult: Alert Orientation Level: Oriented to Person Cognition: Follows one step commands;Attention/concentration-decreased;Processing-delayed Mobility: a gait belt and non-slip socks were used for all out of bed activity this date. Bed Mobility: Supine to Sit: Maximum Assistance;X 2;Requires Verbal Cues for Safety;Requires Verbal Cues for Technique (pt moving RLE over EOB) Sit to Supine: Total Assistance;X 2;Requires Verbal Cues for Safety;Requires Verbal Cues for Technique Transfers: Sit to Stand: Activity Does Not Occur Stand to Sit: Activity Does Not Occur Balance: Max A for static sitting EOB for 13 min. Pt attempting to initiate self correcting posturewhen support was taken away. Pt using R hand on bedrail for support in static sitting EOB. Pt requires verbal/tactle cuing progressing to physical assist to maintain neutral head/neck. Activities of Daily Living: Oral Facial Hygiene: Minimal Assistance;Requires Verbal Cues for Technique (to use yaunker with R hand) Pt performing BUE scapular elevation (no active L traps/scapular movement, provided PROM to LUE). Pt spouse and mother educated on performing LUE PROM all joints/planes. Pt family also educated on delirium precautions (tv on, shades open, lights on during the day and frequent reorientation) - family verbalizing understanding. ACTIVITY TOLERANCE: Patient's activity tolerance: fair Modified [place]: Current Modified [place] Score: 5 AM-PAC 6 Clicks Daily Activity Raw Score:: 10 TREATMENT/INTERVENTIONS: ADL training Cognitive retraining Functional transfer training Endurance training Bed mobility Energy conservation Safety awareness HEP training EDUCATION: While performing OT, Patient and spouse and mother was instructed in:functional mobilitytraining, self-care training, cognitive retraining, energy conservation, safety awareness/fall precautions , home exercise program, use of call light Presented to patient who demonstrates Fair understanding of instructions given. INFORMED CONSENT TO TREATMENT: Plan of care including recommended therapy, goals and frequency, discussed with patient who understands and agrees to proceed. ASSESSMENT: Patient continues to benefit from skilled Occupational Therapy to achieve the following functional goals. Short Term Goals: Goal Formation With patient/family Patient will increase orientation to person, place, time and situation Patient will perform supine to/from sit with moderate assist and X 2 Patient will tolerate treatment 20 minutes, with good endurance and with minimal pain Group Home Goal(s): Patient to discharge to appropriate next level of inpatient care Plan: Patient continues to benefit from skilled therapy services., Continue with goals as established. If patient is discharged from the facility, this note serves as a discharge summary if further occupational therapy visits did not occur. Refer to filed flowsheet for further details. Following therapy session, patient left in bed, with bed alarm on , with call light within reach, with family in room, with RNRadha aware, with therapy cues visible on white board. 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 MRSA positive/other pertinent micro: MRSA PCR and all blood cultures negative See chart below Recent Labs Component Name 11/02/22 0917 10/31/22 0948 10/28/22 0920 10/26/22 0838 VANCTROUGH 13.2 25.4* 16.5 14.0 Using steady state pharmacokinetic calculations, extrapolated true trough = 15 mcg/mL and is therapeutic to goal. Plan Dosing: Will continue current regimen to target goal trough: 15-20 mcg/ml. Monitoring Will order a vancomycin trough level prior to subsequent maintenance dose on 11/04 at 0900 and adjust regimen if indicated. Continue to monitor patient???s renal function and cultures as needed. Shania Jha, PharmD 12:30 PM 11/02/2022 [facility] Vancomycin Guideline SUBJECTIVE/OBJECTIVE Consuelo aDrby is a 42 year old female. The primary encounter diagnosis was Right middle cerebralartery stroke (CMS/HCC). Diagnoses of Weakness, Gaze palsy, Hemianopsia, Left-sided sensory deficitpresent, Dysarthria, At high risk for bleeding after thrombolytic therapy, Acute cerebrovascular accident (CVA) due to embolism of right middle cerebral artery (CMS/HCC), Nihss score 9, Aortic valve vegetation, Occlusion of external iliac artery (CMS/HCC), Cold extremity without peripheral vasculardisease, Acute lower limb ischemia, Leukocytosis, unspecified type, Received intravenous tissue plasminogen activator (tPA) in emergency department, Hypoxia, Ischemia, Primary hypertension, Iliac artery occlusion, right (CMS/HCC), and Presence of externally removable percutaneous endoscopic gastrostomy (PEG) tube (CMS/HCC) were also pertinent to this visit. Height: 5' 4 (162.6 cm) Wt 95.3 kg (210 lb) Body mass index is 36.05 kg/m??. Recent Labs Component Name 11/02/22 0132 11/01/22 0003 10/31/22 0022 10/30/22 0017 CREATININE 0.48* 0.56 0.56 0.61 BUN 10 8 8 11 WBC 19.3* 20.6* 19.6* 17.9* @[id number]@ Dialysis Orders (72h ago, onward) None Radiocontrast within 72 hours The 3 most recent administrations since 10/30/2022 are shown below each listed medication. Other Order Route Dose Action Date iopamidol (Isovue 370) 76 % contrast Intravenous 100 mL $ Given - Contrast 10/31/2022 iodixanol (Visipaque 320) injection Other 30 mL $ Given 10/30/2022 Vancomycin Administrations from MAY (last 72 hours) Date/Time Action Medication Dose Rate 11/02/22 1103 $ New Bag/Syringe vancomycin (Vancocin) 1,500 mg in 500 mL NaCl IVPB Premix 1,500 mg 333.33 mL/hr 11/02/22 0024 $ New Bag/Syringe vancomycin (Vancocin) 1,500 mg in 500 mL NaCl IVPB Premix 1,500 mg 333.33 mL/hr 11/01/22 1634 $ New Bag/Syringe vancomycin (Vancocin) 1,500 mg in 500 mL NaCl IVPB Premix 1,500 mg 333.33 mL/hr 11/01/22 0739 $ New Bag/Syringe vancomycin (Vancocin) 1,500 mg in 500 mL NaCl IVPB Premix 1,500 mg 333.33 mL/hr 11/01/22 0011 Restarted vancomycin (Vancocin) 1,500 mg in 500 mL NaCl IVPB Premix 333.33 mL/hr 11/01/22 0011 $ New Bag/Syringe vancomycin (Vancocin) 1,500 mg in 500 mL NaCl IVPB Premix 1,500 mg 333.33 mL/hr 10/31/22 1649 $ New Bag/Syringe vancomycin (Vancocin) 1,500 mg in 500 mL NaCl IVPB Premix 1,500 mg 333.33 mL/hr 10/31/22 0426 $ New Bag/Syringe vancomycin (Vancocin) 1,750 mg in 535 mL IVPB 1,750 mg 305.71 mL/hr 10/30/22 2037 Restarted vancomycin (Vancocin) 1,750 mg in 535 mL IVPB 305.71 mL/hr 10/30/22 1859 $ New Bag/Syringe vancomycin (Vancocin) 1,750 mg in 535 mL IVPB 1,750 mg 305.71 mL/hr * Ankit Spivey - 11/02/2022 11:41 AM CDT [facility] Physical Medicine and Rehabilitation Physical Therapy Progress Note Patient: Consuelo Darby Med Record Number: [id number] Date of : 1980 Age: [age] year old Updated PT order received, no re-evaluation indicated due to no change in functional mobility status. Co-tx with OT: Shania PPE worn by staff: gloves;mask - procedural PPE worn by patient: gown - patient, clean;socks - clean Tech: PT:Rosa Recommendations: Discharge PT Discharge Recommendations: Patient would benefit from intensive 3-hour multidisciplinary therapy SUBJECTIVE: Subjective: Patient was agreeable to PT treatment by giving thumbs up. Patient reported pain 5/10. Family reported no verbalization since hospital admission. Pain Assessment: Pain Location #1 Pain Scale/Observation: Numeric (0-10);Behaviors Pain Rating Score #1: 5 Relieved By: Rest Pain Intervention(s): Non-pharmacological Behaviors/Assumed Pain Present : Sedated PRECAUTIONS: Weight Bearing Status: (no restrictions) Activity Level: Up ad bigg Other Precautions: falls OBJECTIVE: At start of therapy session, patient found in bed and with no alarm General Appearance: adult female, in NAD LDAs: IV's: Peripheral line and Catheter Vitals: (*Assess the 3 levels of oxygen saturations both for room air and 02 unless rest on room air is 88% or less). Rest BP: 122/62 HR: 75 Sp02 97% Room Air Post Activity BP: 133/79 HR: 80 Sp02 98% Room Air Observations: Patient denied SOB and dizziness. Mental Status/Cognition: Orientation Level: Oriented to Person Cognition: Follows one step commands;Attention/concentration-decreased;Processing-delayed Mobility: A gait belt and non-slip socks were used for all out of bed activity this date. Bed Mobility: Rolling: Maximal Assistance to Right;Maximal Assistance to Left;Requires Physical Cues for Safety;Requires Physical Cues for Technique Supine to Sit: Maximum Assistance;X 2;Requires Verbal Cues for Safety;Requires Verbal Cues for Technique;Requires Physical Cues for Safety;Requires Physical Cues for Technique with HOB in semi-fowlers position Sit to Supine: Total Assistance;X 2;Requires Verbal Cues for Safety;Requires Verbal Cues for Technique;Requires Physical Cues for Safety;Requires Physical Cues for Technique Balance: Sitting - Static: Poor +;With One Upper Extremity Support Sitting - Dynamic: Poor;With One Upper Extremity Support Patient maintains in static sitting position for 13min with RUE support, max assistance provided posteriorly by therapist. Therapeutic exercises Ankle pumps RLE x5; LLE AA x10 Knee extension RLE x5; LLE AA x10 Left side awareness training, using RUE to find left side of the body(face,shoulder, knee) x6 ACTIVITY TOLERANCE: Patient's activity tolerance: fair minus. TREATMENT/INTERVENTIONS: bed mobility training, balance activities, monitoring of vitals and cognitive stimulation Modified [place]: Current Modified [place] Score: 5 AM-PAC 6 Clicks Mobility Raw Score:: 7 EDUCATION: While performing PT, Patient was instructed in:functional mobility training, self-care training, cognitive retraining, energy conservation, safety awareness/fall precautions , discharge planning, use of call light Presented to patient who demonstrates Questionable understanding of instructions given. ASSESSMENT: Patient would benefit from additional Physical Therapy sessions to achieve the following functionalgoals to enhance independence. Short Term Goals: Goal Formation Patient unable to participate in goal formulation Patient will perform bed mobility with moderate assist Patient will transfer bed to/from chair with maximal assist Patient will sit EOB x10 minutes with minimal assist Environmental Marketer Goal(s): Patient to discharge to appropriate next level of inpatient care. INFORMED CONSENT TO TREATMENT: Plan of care including recommended therapy, goals and frequency, discussed with patient who understands and agrees to proceed. Equipment Issued: gait belt Plan: Patient continues to benefit from skilled therapy services. If patient is discharged from the facility, this note serves as a discharge summary if further physical therapy visits did not occur. Refer to filed flowsheet for further details. Following therapy session, patient left in bed, with call light within reach, with family in room, with therapy cues visible on white board. * Jerod Calderon MD - 11/02/2022 10:31 AM CDT GI Consult Progress Note Subjective: Interval History: No acute events overnight. S/p PEG placement yesterday CT obtained afterwards notes no complications Objective: Physical Exam: BP 132/86 Pulse 87 Temp 98 ??F (36.7 ??C) (Oral) Resp 18 Ht 1.626 m (5' 4 ) Wt 95.3 kg (210 lb) SpO2 97% Wt Readings from Last 3 Encounters: 10/20/22 95.3 kg (210 lb) 10/23/22 95.3 kg (210 lb) 02/08/22 93.3 kg (205 lb 11.2 oz) General: non-verbal, breathing RA Eyes/ENT: No conjunctival injection, no icterus, no nasal discharge Neck: No obvious thyromegaly, no stridor Cardiac: Regular rate and rhythm, no m/r/g appreciable for me Pulm: Equal breath sounds, no increased work of breathing, no use of accessory muscles GI/Abd: Normoactive bowel sounds, not visibly distended, non tender, non rigid, no drainage around PEG insertion site, for edema, resolving, PEG tube easily movable Neuro: non-verbal, no facial asymmetry Extremeties: No edema MSK: No joint effusion, no major deformities Labs: Recent Labs Component Name 11/02/22 0132 11/01/22 0240 11/01/22 0003 10/31/22 0022 10/30/22 0237 10/30/22 0017 10/29/22 0214 10/29/22 0010 10/23/22 0129 10/22/22 0153 WBC 19.3* - 20.6* 19.6* - 17.9* - 21.3* - - HGB 10.0* - 10.1* 9.9* - 7.6* - 7.8* - - MCV 93.7 - 92.7 92.1 - 96.0 - 96.1 - - PLT - - - - - - - - - 199 INR 1.2 1.1 - 1.1 1.0 - 1.0 - - - - = values in this interval not displayed. Recent Labs Component Name 11/02/22 0132 11/01/22 0003 10/31/22 0022 NA 138 139 140 CL 108* 105 107 CO2 22 25 24 BUN 10 8 8 CREATININE 0.48* 0.56 0.56 Recent Labs Component Name 10/19/22 0824 06/15/22 0757 12/09/18 0812 AST 19 17 18 ALT 16 9 17 ALKPHOS 52 44 56 TBILI 0.1* 0.1* - ALB 3.5 3.6 - Imaging: CT HEAD WO CONTRAST Result Date: 10/31/2022 IMPRESSION: Compared to prior head CT 10/28/2022: 1.Re-demonstrated postsurgical changes of decompressive right frontoparietotemporal craniectomy with multiple overlying scalp carla. Evolving heterogeneous subdural hematoma along the right frontotemporal convexity measuring up to 8 mm in maximal thickness (5/32), previously measuring up to 9 mm in thickness. 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 Increased conspicuity of a thin hyperdensity along the cortex within this region suggestive of evolving cortical laminar necrosis. 3.Re-demonstrated small hypodensity of the left inferior frontal gyrus/frontal operculum, consistent with an evolving ejepoqaa-kx-nkctiss infarct. 4.No significant midline shift. Similar-appearing size and configuration of the ventricles without evidence of hydrocephalus. Basal cisterns are patent. 5.No other convincing change. Partially imaged left nasoenteric tube. > Interpreting Provider: Amanda Real MD, PhD on 10/31/2022 1:[address] HEAD WO CONTRAST Result Date: 10/28/2022 IMPRESSION: 1. Evolving right MCA subacute infarct status post decompressive craniectomy. Grossly unchanged right frontotemporal subdural hemorrhage. Grossly unchanged gyriform hyperdensity in the infarcted area may represent subarachnoid hemorrhage. No midline shift. Unchanged mildly dilated ventricles may represent mild hydrocephalus. 2. Unchanged small focus of hypoattenuation in the left frontal lobe likely represents additional subacute infarct. The report is dictated by Kayla Stevenson MD (resident services coordinator) 1 I, Lonnie Rae MD have personally reviewed and interpreted this examination/study. > Interpreting Provider: Lonnie Rae MD on 10/28/2022 9:[address] HEAD WO CONTRAST Result Date: 10/27/2022 IMPRESSION: 1. Redemonstration of evolving right MCA subacute infarct, status post right decompressive craniectomy. The extra-axial hematoma underlying the craniectomy site and subarachnoid hemorrhage in the right cerebral sulci are grossly unchanged. Mass effect on the right lateral ventricle is unchanged. No significant midline shift. 2. Small focus of likely a subacute infarct in the left frontal lobe is unchanged. > Interpreting Provider: Lonnie Rae MD on 10/27/2022 12:[address] HEAD WO CONTRAST Result Date: 10/26/2022 IMPRESSION: 1. Redemonstration of evolving large right MCA territory acute to subacute infarct without definite evidence of hemorrhagic transformation. Unchanged minimal leftward midline shift of about 2 mm at the level of foramen of Monro and effacement of the left lateral ventricle. 2. Redemonstration of postsurgical changes from right-sided decompressive hemicraniectomy, unchanged compared to prior study. These results were discussed with stroke resident Dr Mendez by Dr. Miranda Bowen at8:05 AM on 10/26/2022 with read back confirmation and closed-loop communication. The report is dictated by Miranda Bowen MD (resident services coordinator) Oriana Ornelas MD have personally reviewed and interpreted this examination/study. > Interpreting Provider: Oriana Suarez MD on 38:[address] CHEST ABDOMEN PELVIS W CONT Result Date: 10/25/2022 Impression: 1.Occlusion of the right distal external [...] verification. > Dictated by Clarisa Cantrell MD (resident services coordinator). Alexx Ornelas have personally reviewed and interpreted this examination/study. > Interpreting Provider: Alexx Lopez on 10/25/2022 4:[address] HEAD WO CONTRAST Result Date: 10/25/2022 IMPRESSION: Redemonstrated postoperative changes consistent with right calvarial hemicraniectomy. Fluid collection overlying the lateral right cerebral hemisphere within the craniectomy defect containing some recent blood products. The overall size of this fluid collection is less than on previous study. In addition, there is less air/gas within this defect. Evolving large recent right cerebral hemisphere infarct with mass effect and approximately 2 mm of midline shift right to left. There appears to be slightly less mass effect and midline shift on today's study. Continued follow-up is recommended. Small recent cortical infarct in the lateral left frontal lobe as well as small recent infarc t in left martínez radiata which appears similar to previous study. Clinical correlation recommended.The report is dictated by Miranda Bowen MD (resident services coordinator) IJoni MD have personally reviewed and interpreted this examination/study. > Interpreting Provider: Joni Fabian MD on 10/25/2022 2:51 PM MRI BRAIN WWO CONTRAST Result Date: 10/24/2022 IMPRESSION: 1.Redemonstration of postoperative changes of a right hemicraniectomy with expected postsurgical changes as outlined above. 2.Redemonstration of evolving large right MCA territory infarction with extensive cytotoxic edema and mild external herniation of the brain through the craniectomydefect. Persistent local mass effect on the right cerebral hemisphere, effacement of the right lateral ventricle, and approximately 3-4 mm [id number] midline shift, grossly similar to the prior. 3.Mild dilation of the left lateral ventricle may represent subtle left ventricular entrapment, overall grossly similar to prior. 4.Additional multiple foci of abnormal diffusion within the left frontotemporal lobes with associated T2 FLAIR hyperintensity representing additional small acute to subacute infarcts, likely of cardioembolic etiology. Findings communicated to Dr. Mohr by Dr. Major at 1138 hours on 10/24/2022 with readback comprehension and verification. Report dictated by Tim Major MD (resident services coordinator). IJasper MD have personally reviewed and interpreted this examination/study. > Interpreting Provider: Jasper Sifuentes MD on 10/24/2022 1:59 PM Procedures: egd 2011 Normal EGD. Random duodenal biopsies taken. egd w peg 11/01 - A 1 cm hiatal hernia was present. - The exam of the esophagus was otherwise normal. - Erosive gastritis characterized by shallow ulcerations was found in the gastric body, c/w acute stress gastritis, mild. - The exam of the stomach was otherwise normal. - The examined duodenum was normal. - The cardia and gastric fundus were normal on retroflexion. - The patient was placed in the supine position for PEG placement. The stomach was insufflated to appose gastric and abdominal mejia. Multiple trials were required due to obesity in order to find a site was located in the body of the stomach with adequate transillumination and manual external pressure for placement. The abdominal wall was marked and prepped in a sterile manner. The area was anesthetized with 10 mL of 1% lidocaine. The trocar needle was introduced through the abdominal wall and into the stomach under direct endoscopic view. A snare was introduced through the endoscope and opened in the gastric lumen. The guide wire was passed through the trocarand into the open snare. The snare was closed around the guide wire. The endoscope and snare were removed, pulling the wire out through the mouth. A skin incision was made at the site of needle insertion. The externally removable 24 Fr Ramez- Cook gastrostomy tube was lubricated. The G-tube was tied to the guide wire and pulled through the mouth and into the stomach. The trocar needle was removed, and the gastrostomy tube was pulled out from the stomach through the skin. The external bumper was attached to the gastrostomy tube, and the tube was cut to remove the guide wire. The final position of the gastrostomy tube was confirmed by relook endoscopy, and skin marking noted mini 6 cm at theskin and 8 cm at the external bumper. The final tension and compression of the abdominal wall by the PEGtube and external bumper were checked and revealed that the bumper was loose and not touching the skin and that the PEG balloon was loose and not touching the stomach. The feeding tube was capped, and the tube site cleaned and dressed. c scope: 08/2021 - The examined portion of the ileum was normal. ??- A few small polyps in the sigmoid colon, removed with a cold biopsy forceps. Resected and retrieved. ??- Diverticulosis in the sigmoid colon. ??- The examination was otherwise normal. Assessment: 41 year old female with a PMH significant for GERD, HTN, Migraine, obesity, procedural/surgical history significant for c/section (03/01/2016), lap cholecystomy (02/22/2012) and colonoscopy with polypectomy (08/25/2021) with acute malignant right MCA infarction with deficits including but not limited to dysphagia. Oropharyngeal dysphagia 2/2 stroke on 10/19 MBS not able to be performed given no participation in of SIGNALING PROJECT ENGINEER evaluation S/p peg placed 11/01 Recommendations: - Monitor for signs of bleeding, pain, infection. - May start free water flushes and tablets through PEG tube today. - Start tube feeds 24 hours after PEG tube placement. - Flush with 20 mL of water before and after tube feeds or medications. - Patient should have abdominal binder over tube at all times - Can open the gastrostomy tube to gravity as needed for venting in the event of nausea or vomiting. - Hold any anticoagulant medications ( blood thinners ) for 2 days. Resume rest of medications today. - Avoid NSAID type medications (ex. Ibuprofen, Naproxen, Diclofenac, Celecoxib, Meloxicam, etc). - Skin care: ??? Clean with soap and water, keep site dry, apply zinc oxide to stoma regularly. Do not ??? apply dressings under the external bumper ??? Dressing should be placed above external bumper. ??? Keep external bumper about 1 cm away from abdominal wall. The external bumper should not indentor press tightly ??? on the skin. In case PEG gets pulled out or dislodged - If pulled out after 6 weeks and pt still requires it, just place a puentes catheter in the lumen tomaintain patency, then call GI - If pulled out before 6 weeks, should not attempt to replace blindly: - call GI - will likely need IV antibiotics - may need surgical repair These recommendations were discussed with GI attending, Dr. Metz We will sign off. Thank you for allowing us to participate in the care of this patient. Please do not hesitate to contact us with further questions. This note was generated using fluency dictation, voice recognition errors are possible. Jerod Calderon MD Gastroenterology & Hepatology Fellow [facility] Associated attestation - Khanh Metz MD - 11/02/2022 10:43 AM CDT I have personally seen and examined this patient. I agree with the pet house sitter's findings, assessment and plan as outlined. Doing well. Some pain at PEG site Site clean, dry. No cellulitis CT reviewed. Good position May start TF's today * Bridgett Zazueta, SIGNALING PROJECT ENGINEER - 11/02/2022 9:44 AM CDT [facility] Physical Medicine and Rehabilitation Bedside Swallow Assessment Patient: Consuelo Darby Med Record Number: [id number] Date of : 1980 Age: [age] year old Patient Active Problem List: GERD (gastroesophageal reflux disease) Hemianopsia Weakness Left-sided sensory deficit present Gaze palsy Acute cerebrovascular accident (CVA) due to embolism of right middle cerebral artery (CMS/HCC) Nihss score 9 Received intravenous tissue plasminogen activator (tPA) in emergency department Migraine Hypertension Right middle cerebral artery stroke (CMS/HCC) Presence of externally removable percutaneous endoscopic gastrostomy (PEG) tube (CMS/HCC) Past Medical History: Diagnosis Date ??? Abdominal pain, right upper quadrant ??? GERD (gastroesophageal reflux disease) ??? History of hypertension gestational hypertension In addition to the 1:1 evaluation of the patient, additional eval time was spent completing the chart review prior to the assessment, completing the multidisciplinary plan of care and education plan post evaluation and communicating results of the eval to other treatment team members. PPE: PPE worn by staff: gloves Impressions: patient not a candidate for PO diet at this time d/t severe oropharyngeal dysphagia. Continue NPO with PEG tube feedings Recommendations: Diet Liquids Recommendation: NPO Diet Solids Recommendation: NPO Recommended Form of Meds: Feeding Tube Recommended Tests/Consults: Recommendations: Dysphagia Treatment Discharge Recommendations: TBD by multidisciplinary team SUBJECTIVE: Patient Goals:patient did not state or indicate at this time She was nonverbal however able to shake head no and indicate yes with thumbs up gesture. She inconsistently responded to yes/no questions. Pain Assessment: Pain Location #1 Pain Scale/Observation: Faces Pain Rating Score #1: 0 OBJECTIVE: Level of Consciousness: alert Orientation Level: unable to assess orientation completely at this time Positioning: Upright in bed Respiratory Status: room air Oral/Motor: Dentition: Normal Oral Hygiene : Xerostomic (dry mouth) Labial/Facial: Impaired Tongue: Impaired Vocal Quality: Impaired decreased intensity does not phonate on command Oral Motor Coordination: Impaired Controls Secretions: No Swallow Trials: Ice chips: Presentation: Spoon-Assisted Oral: Spillage Right;Increased Anterior to Posterior Transit;Delayed Initiation;Other (Comment) (did not depress mandible with tactile or verbal cues to easily allow bolus into oral cavity) Pharyngeal: Delayed Swallow;Decreased Laryngeal Elevation;Cough - Immediate Thin Liquid: Presentation: Spoon-Assisted Oral: Spillage Right;Increased Anterior to Posterior Transit;Delayed Initiation (decreased depression of mandible to allow spoon presentation of bolus) Pharyngeal: Delayed Swallow;Decreased Laryngeal Elevation;Cough - Immediate Puree: Presentation: (unable to elicit mandibular depression to allow pudding bolus) Assessment: Risk For Aspiration: Severe Primary Diagnostic Impression - Oral: Severe Primary Diagnostic Impression - Pharyngeal: Severe Patient made spontaneous phonation after Cough following swallow attempts. Her vocal quality was clear and barely audible. Education/Interventions: While performing SIGNALING PROJECT ENGINEER, Patient, spouse, mother and father and RN was instructed in: goals of treatment , oropharyngeal exercises and recommendations for NPO status given patient's elevated aspiration risk. Family asked if they could practice anything with her throughout the day. They were instructed on mandibular depression/elevation exercises, lingual protrusion, lateralization, and retraction Patient, spouse, mother and father and RN demonstrated Good understanding of instructions given. Nurse contacted regarding results of swallow evaluation and recommendations. INFORMED CONSENT TO TREATMENT: Plan of care is discussed but patient with questionable understanding. Short Term Goals Patient will participate in an instrumental swallow assessment as appropriate., Patient will complete oropharyngeal strengthening exercises to improve swallow function., Patient will demonstrate an improvement in oropharyngeal swallow function to warrant diet upgrade. Environmental Marketer Goal (s): Other: patient will tolerate least restrictive diet with no s/s aspiration Plan: Swallow tx 5x/wk while in this hospital or until goals met * Vickie Muller MD - 11/02/2022 7:37 AM CDT Stroke Service Daily Progress Note Consuelo Darby Age: [age] year old Date of : 1980 Date of Admission: 10/19/2022 Hospital Day: 14 Subjective Consuelo Darby is a 41yo woman hemiplegic migraine, GERD, GENESIS. who developed acute onset L sided weakness, L-sided sensory deficits, and dysarthria. L sided weakness resolved in route and dysarthria improved in route. On arrival patient noted to hae L gaze plasy, L hemainopsia, mild dysarthria, andextinction. NIHSS: 7. S/p TNK and TICI2b revascularization of the R MCA M1 occlusion.Repeat CTH showing edema in R MCA territory. On 10/20/22 patient taken for hemicraniectomy, post-op CTH showing stable midline shift. Initial hypercoag work up negative, repeat in 2 months. -10/23- SARAH concerning for aortic cusp vegetations. [...] by GI team while evaluating her for G tube 11/01 CT A/P obtained and no abscess was identified in the abdominal area. Postsurgical changes after vascular surgery. 11/02 GI to take her to OR for G tube. Ready TTF. Interval History: Will start feedings through PEG tube. SARAH today. CT abdomen was unremarkable. Objective Patient Vitals for the past 24 hrs: BP Temp Temp src Pulse Resp SpO2 11/02/22 0407 121/76 99 ??F (37.2 ??C) Axillary 81 -- 96 % 11/02/22 0014 117/62 97.4 ??F (36.3 ??C) Axillary 97 -- 95 % 11/01/22 2206 154/92 -- -- (!) 110 -- -- 11/01/22 1933 146/79 98 ??F (36.7 ??C) Axillary 101 18 96 % 11/01/22 1619 142/84 98.8 ??F (37.1 ??C) Axillary 86 18 98 % 11/01/22 1536 -- -- -- 85 24 98 % 11/01/22 1535 137/67 -- -- -- -- -- 11/01/22 1530 142/78 -- -- 99 18 97 % 11/01/22 1525 129/73 98 ??F (36.7 ??C) -- 90 25 97 % 11/01/22 1524 133/94 -- -- -- -- -- 11/01/22 1400 129/71 -- -- 97 22 96 % 11/01/22 1351 144/65 98.5 ??F (36.9 ??C) Tympanic 92 20 96 % 11/01/22 1300 128/66 -- -- 94 17 97 % 11/01/22 1200 126/59 97.8 ??F (36.6 ??C) Axillary 84 17 96 % 11/01/22 1100 -- -- -- 88 21 95 % 11/01/22 1000 -- -- -- 90 13 96 % 11/01/22 0900 -- -- -- 76 17 97 % 11/01/22 0800 -- 97.6 ??F (36.4 ??C) Axillary 98 17 97 % Intake/Output Summary (Last 24 hours) at 11/02/2022 0737 Last data filed at 11/02/2022 0600 Gross per 24 hour Intake 620 ml Output 1850 ml Net -1230 ml Exam: Cortical Function Mental Status Awake, alert, follows commands Orientation REYNOLD Language Aphasia Visual Powell Intact bilaterally to confrontation Neglect No visual neglect noted, no tactile neglect noted Cranial Nerves II Pupils 3 mm and bilaterally reactive to light. Fundoscopic exam not performed. VIII Hearing is intact bilaterally to voice. III/IV/ Extraocular muscles intact. No diplopia, ptosis, nystagmus or convergence abnormalities noted. IX/X REYNOLD V REYNOLD XI Head turning and shoulder shrug are intact. VII L facial palsy XII Tongue is midline with normal movements and no atrophy noted. Motor Function Movement No abnormalities noted Bulk No abnormalities noted Tone No abnormalities noted Moves RUE and RLE, tries to withdraw to pain in LUE and LLE Sensory Light Touch REYNOLD Noxious Stimuli Symmetric and intact bilaterally Labs: Recent Labs Component Name 11/02/22 0132 11/01/22 0003 10/31/22 0022 10/23/22 0129 10/22/22 0153 WBC 19.3* 20.6* 19.6* - - RBC 3.32* 3.41* 3.30* - - HGB 10.0* 10.1* 9.9* - - HCT 31.1* 31.6* 30.4* - - PLT - - - - 199 - = values in this interval not displayed. Recent Labs Component Name 11/02/22 0132 11/01/22 0003 10/31/22 0022 NA 138 139 140 CL 108* 105 107 CO2 22 25 24 BUN 10 8 8 CREATININE 0.48* 0.56 0.56 CALCIUM 8.6 8.7 8.4 No results for input(s): MG in the last 99144 hours. Recent Labs Component Name 11/02/22 0132 11/01/22 0003 10/31/22 0022 PHOS 4.5 4.1 4.1 Recent Labs Component Name 11/02/22 0445 11/02/22 0132 11/01/22 0848 11/01/22 0240 10/31/22 0948 10/31/22 0022 PT - 15.1* - 14.3 - 14.5 INR - 1.2 - 1.1 - 1.1 PTT 52.5* 48.3* 43.6* 67.7* - - - = values in this interval not displayed. No results for input(s): A1C in the last 85767 hours. Recent Labs Component Name 10/20/22 0302 06/15/22 0757 CHOL 173 204* HDL 42 37* LDLCALC 91 117* TRIG 201* 251* Recent Labs Component Name 06/15/22 0757 TSH 1.873 No results for input(s): CKMB, CKTOTAL, CKMB, TROPONINI, BNP in the last [address] ANGIO BRAIN NECK STROKE Result Date: 10/19/2022 IMPRESSION: 1. Occlusion of the distal M1 [...] Lonnie Rae MD on 10/19/2022 8:[address] BRAIN - Stroke Result Date: 10/19/2022 IMPRESSION: 1. No acute intracranial hemorrhage. 2. [...] Lonnie Rae MD on 10/19/2022 8:15 AM Right middle cerebral artery stroke (CMS/HCC) (POA: Unknown) Acute cerebrovascular accident (CVA) due to embolism of right middle cerebral artery (CMS/HCC) (POA: Yes) Nihss score 9 (POA: Yes) Received intravenous tissue plasminogen activator (tPA) in emergency department (POA: Yes) GERD (gastroesophageal reflux disease) (POA: Yes) Hemianopsia (POA: Yes) Weakness (POA: Yes) Left-sided sensory deficit present (POA: Yes) Gaze palsy (POA: Yes) Migraine (POA: Unknown) Hypertension (POA: Unknown) Presence of externally removable percutaneous endoscopic gastrostomy (PEG) tube (CMS/HCC) (POA: Unknown) Assessment ??Consuelo Darby is a 41 year old female who presented on 10/19 with Right MCA syndrome s/p TNK. CTA 1 M1 occlusion. S/P mechanical thrombectomy with R M1 recanalization and TICI2b. CT 10/20/22 with edema and mild shift. S/P decompressive right hemicraniectomy. Echo showed a mobile aortic valve vege tation. MRI brain with scattered cortical R hemisphere infarcts with petechiae. ?? Stroke Type: Ischemic Stroke Mechanism: Cardioembolic ?? 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 EOT 11/22 R illiac and common femoral artery occlusion - s/p R common femoral thrombectomy and patch angioplasty by vasc surgery ?? HTN - home metop Blood Pressure Goals: SBP <160, map >70 Vit D deficiency - Vit D 2,000 U daily Individual Modifiable Risk Factors Hypertension: no Hyperlipidemia: no Diabetes: no Atrial Fibrillation: no Tobacco: no Vickie Muller MD Neurology Resident Associated attestation - Jim Walter MD - 11/09/2022 10:24 AM CDT NEUROVASCULAR SERVICE ATTESTATION I saw and examined the patient with the Resident. I have verified all details of the Resident's note and agree with the Resident's documentation. Date of Service: 11/02/2022 Jim Walter MD * Jessica Enriquez RN - 11/02/2022 6:49 AM CDT Problem: Pain/Discomfort Goal: Patient uses pharmacological and non-pharmacological pain management strategies. Outcome: Progressing Goal: Patient verbalizes acceptable level of pain relief and ability to engage in desired activity. Outcome: Progressing Problem: Mobility Goal: Patient's mobility/activity will be maintained as optimum level for age, diagnosis and physical limitations Outcome: Progressing Goal: Continuum of care needs are further met through referral to outpatient services when appropriate. Outcome: Progressing Goal: Patient reports the ability to perform Activities of Daily Living. Outcome: Progressing Problem: Communication Impairment/Dysarthria Goal: Ability to express needs and understand communication Outcome: Progressing Problem: Nutrition Goal: Nutritional status is improving Outcome: Progressing Problem: Swallowing Goal: LTG - Patient will tolerate the least restrictive diet consistency to allow for safe consumption of daily meals Outcome: Progressing Problem: Transfers Goal: STG - Transfer from bed to chair Outcome: Progressing Problem: Skin Integrity Goal: Skin integrity is maintained or improved Outcome: Progressing Problem: Neurological Deficit Goal: Neurological status is stable or improving Outcome: Progressing * Radha Covarrubias RN - 2022 6:10 PM CDT Problem: ELOPEMENT/ABDUCTION Goal: Risk for elopement &/or abduction during hospitalization is minimized 11/01/20221809 by Radha Covarrubias RN Outcome: Progressing 2022 1635 by Radha Covarrubias RN Outcome: Progressing Problem: Pain/Discomfort Goal: Patient uses pharmacological and non-pharmacological pain management strategies. 11/01/20221809 by Radha Covarrubias RN Outcome: Progressing 2022 1635 by Radha Covarrubias RN Outcome: Progressing Goal: Patient verbalizes acceptable level of pain relief and ability to engage in desired activity. 11/01/20221809 by Radha Covarrubias RN Outcome: Progressing 2022 1635 by Radha Covarrubias RN Outcome: Progressing Problem: Mobility Goal: Patient's mobility/activity will be maintained as optimum level for age, diagnosis and physical limitations 11/01/20221809 by Radha Covarrubias RN Outcome: Progressing 2022 1635 by Radha Covarrubias RN Outcome: Progressing Goal: Continuum of care needs are further met through referral to outpatient services when appropriate. 11/01/20221809 by Radha Covarrubias RN Outcome: Progressing 2022 1635 by Radha Covarrubias RN Outcome: Progressing Goal: Patient reports the ability to perform Activities of Daily Living. 11/01/20221809 by Radha Covarrubias RN Outcome: Progressing 2022 1635 by Radha Covarrubias RN Outcome: Progressing Problem: Communication Impairment/Dysarthria Goal: Ability to express needs and understand communication 2022 181 by Radha Covarrubias RN Outcome: Progressing 2022 1635 by Radha Covarrubias RN Outcome: Progressing Problem: Nutrition Goal: Nutritional status is improving 2022 181 by Radha Covarrubias RN Outcome: Progressing 2022 1635 by Radha Covarrubias RN Outcome: Progressing Problem: Glycemic Control Goal: Clinical indication of glycemia balance is achieved 2022 181 by Radha Covarrubias RN Outcome: Progressing 2022 1635 by Radha Covarrubias RN Outcome: Progressing Problem: Knowledge Deficit,Education,Discharge Plan Goal: The patient/family will understand cerebrovascular disease and its symptoms, treatment and management 11/01/20221809 by Radha Covarrubias RN Outcome: Progressing 2022 1635 by Radha Covarrubias RN Outcome: Progressing Problem: Oral Intake: Inadequate oral intake Goal: Total intake will meet estimated nutrient needs 11/01/20221809 by Radha Covarrubias RN Outcome: Progressing 2022 1635 by Radha Covarrubias RN Outcome: Progressing Problem: Swallowing Goal: LTG - Patient will tolerate the least restrictive diet consistency to allow for safe consumption of daily meals 11/01/20221809 by Radha Covarrubias RN Outcome: Progressing 2022 1635 by Radha Covarrubias RN Outcome: Progressing Problem: Transfers Goal: STG - Transfer from bed to chair 11/01/20221809 by Radha Covarrubias RN Outcome: Progressing 2022 1635 by Radha Covarrubias RN Outcome: Progressing Problem: Risk for Violence: Self-Directed or Other Directed Description: Diagnosis: Risk for self-directed Violence or Risk for Directed Violence Risk Factors: Biochemical/neurologic imbalances, impulsivity, manic excitement, psychotic symptomatology, rage reaction, restlessness Possibly Evidenced By: agitated behaviors, delusional thinking, hallucinations, loud/threatening/profane speech, poor impulse control, provocative behaviors, verbal threats against others, verbal threats against self Goal: Patient will verbalize control of feelings. 11/01/20221809 by Radha Covarrubias RN Outcome: Progressing 2022 1635 by Radha Covarrubias RN Outcome: Progressing Goal: Patient will respond to interventions when potential or actual loss of control occurs. 2022 1810 by Radha Covarrubias RN Outcome: Progressing 2022 1635 by Radha Covarrubias RN Outcome: Progressing Goal: Patient will refrain from provoking others to physical harm. 2022 1810 by Radha Covarrubias RN Outcome: Progressing 2022 1635 by Radha Covarrubias RN Outcome: Progressing Goal: Patient will display nonviolent behaviors toward others in the hospital, with the aid of medications and nursing interventions. 2022 181 by Radha Covarrubias RN Outcome: Progressing 2022 1635 by Radha Covarrubias RN Outcome: Progressing Goal: Patient will seek help when experiencing aggressive impulses. 2022 181 by Radha Covarrubias RN Outcome: Progressing 2022 1635 by Radha Covarrubias RN Outcome: Progressing Goal: Patient will refrain from verbal threats and loud, profrane language toward others. 2022 181 by Radha Covarrubias RN Outcome: Progressing 2022 1635 by Radha Covarrubias RN Outcome: Progressing Goal: Patient will be safe and free from injury. 2022 181 by Radha Covarrubias RN Outcome: Progressing 2022 1635 by Radha Covarrubias RN Outcome: Progressing Problem: Skin Integrity Goal: Skin integrity is maintained or improved 2022 1810 by Radha Covarrubias RN Outcome: Progressing 2022 1635 by Radha Covarrubias RN Outcome: Progressing Problem: Neurological Deficit Goal: Neurological status is stable or improving 11/01/20221809 by Radha Covarrubias RN Outcome: Progressing 2022 1635 by Radha Covarrubias RN Outcome: Progressing * Radha Covarrubias RN - 2022 4:35 PM CDT Problem: ELOPEMENT/ABDUCTION Goal: Risk for elopement &/or abduction during hospitalization is minimized Outcome: Progressing Problem: Pain/Discomfort Goal: Patient uses pharmacological and non-pharmacological pain management strategies. Outcome: Progressing Goal: Patient verbalizes acceptable level of pain relief and ability to engage in desired activity. Outcome: Progressing Problem: Mobility Goal: Patient's mobility/activity will be maintained as optimum level for age, diagnosis and physical limitations Outcome: Progressing Goal: Continuum of care needs are further met through referral to outpatient services when appropriate. Outcome: Progressing Goal: Patient reports the ability to perform Activities of Daily Living. Outcome: Progressing Problem: Communication Impairment/Dysarthria Goal: Ability to express needs and understand communication Outcome: Progressing Problem: Nutrition Goal: Nutritional status is improving Outcome: Progressing Problem: Glycemic Control Goal: Clinical indication of glycemia balance is achieved Outcome: Progressing Problem: Knowledge Deficit,Education,Discharge Plan Goal: The patient/family will understand cerebrovascular disease and its symptoms, treatment and management Outcome: Progressing Problem: Oral Intake: Inadequate oral intake Goal: Total intake will meet estimated nutrient needs Outcome: Progressing Problem: Swallowing Goal: LTG - Patient will tolerate the least restrictive diet consistency to allow for safe consumption of daily meals Outcome: Progressing Problem: Transfers Goal: STG - Transfer from bed to chair Outcome: Progressing Problem: Risk for Violence: Self-Directed or Other Directed Description: Diagnosis: Risk for self-directed Violence or Risk for Directed Violence Risk Factors: Biochemical/neurologic imbalances, impulsivity, manic excitement, psychotic symptomatology, rage reaction, restlessness Possibly Evidenced By: agitated behaviors, delusional thinking, hallucinations, loud/threatening/profane speech, poor impulse control, provocative behaviors, verbal threats against others, verbal threats against self Goal: Patient will verbalize control of feelings. Outcome: Progressing Goal: Patient will respond to interventions when potential or actual loss of control occurs. Outcome: Progressing Goal: Patient will refrain from provoking others to physical harm. Outcome: Progressing Goal: Patient will display nonviolent behaviors toward others in the hospital, with the aid of medications and nursing interventions. Outcome: Progressing Goal: Patient will seek help when experiencing aggressive impulses. Outcome: Progressing Goal: Patient will refrain from verbal threats and loud, profrane language toward others. Outcome: Progressing Goal: Patient will be safe and free from injury. Outcome: Progressing Problem: Skin Integrity Goal: Skin integrity is maintained or improved Outcome: Progressing Problem: Neurological Deficit Goal: Neurological status is stable or improving Outcome: Progressing * Radha Covarrubias RN - 2022 4:07 PM CDT Pt transferred to [facility], DOC and family notified. Four eyes skin check done with Jaye BOGGS, surgical sight to L. Head with carla, incision sight to R. Femoral area, puentes and L. Hand brace noted. * Cass Benjamin SLP - 2022 3:49 PM CDT [facility] Department of Physical Medicine & Rehabilitation Progress Note Patient: Consuelo Darby Med Record Number: [id number] Date of : 1980 Age: [age] year old 11/01/22 1549 Therapy on Hold Therapy on Hold Chart Reviewed; Pt s/p EGD with PEG under general anesthesia. New Order Required for Therapy Cass Lu M.S., [facility]-SIGNALING PROJECT ENGINEER Speech Language Pathologist [id number] * Jerod Calderon MD - 2022 3:18 PM CDT GI plan of care note: - Monitor for signs of bleeding, pain, infection. - Ok to start tube feeds and medications in 4 hours. - Flush with 20 mL of water before and after tube feeds or medications. - Can open the gastrostomy tube to gravity as needed for venting in the event of nausea or vomiting. - Avoid NSAID type medications (ex. Ibuprofen, Naproxen, Diclofenac, Celecoxib, Meloxicam, etc). - Skin care: Clean with soap and water, keep site dry, apply zinc oxide to stoma regularly. Do not apply dressings under the external bumper. The external bumper should not indent or press tightly onthe skin. -Okay to restart heparin without bolus. Jerod Calderon MD Gastroenterology & Hepatology Fellow [facility] * Elizabeth William PT - 2022 3:08 PM CDT [facility] Department of Physical Medicine & Rehabilitation Progress Note Patient: Consuelo Darby Med Record Number: [id number] Date of : 1980 Age: [age] year old 11/01/22 1508 Missed Visit Missed Visit Procedure Off Floor (going for PEG today) * Ronda Crawley OT - 2022 1:30 PM CDT [facility] Department of Physical Medicine & Rehabilitation Progress Note Patient: Consuelo Darby Med Record Number: [id number] Date of : 1980 Age: [age] year old 11/01/22 1330 Missed Visit Missed Visit Procedure Off Floor Attempted to see for OT treatment & daily splint check - discussed with RN and patient going off the floor for PEG. Will continue to follow. * Tim Marinelli MD - 2022 1:11 PM CDT Transfer Checklist: Pertinent comorbidities/PMH: hemiplegic migraine, GERD, GENESIS Home meds being held: amitriptyline and rizatriptan (do not restart) Intubation/NIPPV days: 10/19-10/24 Pressor agents and days: none ABx indications: Aortic cusp vegetations, on vanc and ceftriaxone Consult teams past and present: ID, cardiology, cardiac surgery, PT/OT/ST, vascular surgery, GI team Pending work up: repeat SARAH on Things to watch: aortic cusp vegetations, duration of abx To address prior to d/c: duration of abx and AC To address at d/c (f/u etc): f/u in clinic * Tim Marinelli MD - 2022 1:03 PM CDT Stroke Service Daily Progress Note Consuelo Darby Age: [age] year old Date of : 1980 Date of Admission: 10/19/2022 Hospital Day: 13 Subjective Consuelo Darby is a 41yo woman hemiplegic migraine, GERD, GENESIS. who developed acute onset L sided weakness, L-sided sensory deficits, and dysarthria. L sided weakness resolved in route and dysarthria improved in route. On arrival patient noted to hae L gaze plasy, L hemainopsia, mild dysarthria, andextinction. NIHSS: 7. S/p TNK and TICI2b revascularization of the R MCA M1 occlusion.Repeat CTH showing edema in R MCA territory. On 10/20/22 patient taken for hemicraniectomy, post-op CTH showing stable midline shift. Initial hypercoag work up negative, repeat in 2 months. -10/23- SARAH concerning for aortic cusp vegetations. [...] and patch angioplasty. 10/31: CT A/P obtained 2/2 concern for abscess by GI team while evaluating her for G tube ?? Interval History: CT A/P obtained and no abscess was identified in the abdominal area. Postsurgical changes after vascular surgery. GI to take her to OR for G tube. Ready TTF. Objective Patient Vitals for the past 24 hrs: BP Temp Temp src Pulse Resp SpO2 11/01/22 1000 -- -- -- 90 13 96 % 11/01/22 0900 -- -- -- 76 17 97 % 11/01/22 0800 -- -- -- 98 17 97 % 11/01/22 0600 -- -- -- 86 -- 96 % 11/01/22 0500 -- -- -- 78 -- 95 % 11/01/22 0400 -- -- -- 74 -- 96 % 11/01/22 0306 -- -- -- 79 -- 96 % 11/01/22 0300 -- -- -- 80 -- 97 % 11/01/22 0200 -- -- -- 80 -- 95 % 11/01/22 0100 -- -- -- 97 -- 94 % 11/01/22 0000 -- 98.4 ??F (36.9 ??C) Axillary 102 17 96 % 10/31/22 2300 -- -- -- 98 14 96 % 10/31/22 2200 -- -- -- 92 13 95 % 10/31/22 2100 -- -- -- 75 -- 96 % 10/31/22 2018 129/58 -- -- 97 -- -- 10/31/22 2000 -- 98.3 ??F (36.8 ??C) Axillary 105 -- 96 % 10/31/22 1900 -- -- -- 95 22 96 % 10/31/22 1800 -- -- -- 103 20 97 % 10/31/22 1700 -- -- -- 92 20 95 % 10/31/22 1600 -- 98.5 ??F (36.9 ??C) Axillary 92 20 94 % 10/31/22 1500 -- -- -- 103 10 96 % 10/31/22 1400 -- -- -- 103 14 96 % Intake/Output Summary (Last 24 hours) at 2022 1304 Last data filed at 2022 1000 Gross per 24 hour Intake 3517.56 ml Output 2300 ml Net 1217.56 ml Exam: Cortical Function Mental Status Awake, alert, follows commands Orientation REYNOLD Language Aphasia Visual Powell Intact bilaterally to confrontation Neglect No visual neglect noted, no tactile neglect noted Cranial Nerves II Pupils 3 mm and bilaterally reactive to light. Fundoscopic exam not performed. VIII Hearing is intact bilaterally to finger rub. III/IV/ Extraocular muscles intact. No diplopia, ptosis, nystagmus or convergence abnormalities noted. IX/X Palate elevated symmetrically without phonation abnormalities noted. V Facial sensation symmetric to light touch and intact bilaterally. Corneal reflex not examined. XIHead turning and shoulder shrug are intact. VII No facial palsy noted. XII Tongue is midline with normal movements and no atrophy noted. Motor Function Movement No abnormalities noted Bulk No abnormalities noted Tone No abnormalities noted Moves RUE and RLE, tries to withdraw to pain in LUE and LLE Sensory Light Touch REYNOLD Noxious Stimuli Symmetric and intact bilaterally Labs: Recent Labs Component Name 11/01/22 0003 10/31/22 0022 10/30/22 0017 10/23/22 0129 10/22/22 0153 WBC 20.6* 19.6* 17.9* - - RBC 3.41* 3.30* 2.53* - - HGB 10.1* 9.9* 7.6* - - HCT 31.6* 30.4* 24.3* - - PLT - - - - 199 - = values in this interval not displayed. Recent Labs Component Name 11/01/22 0003 10/31/22 0022 10/30/22 0017 NA 139 140 141 CL 105 107 107 CO2 25 24 25 BUN 8 8 11 CREATININE 0.56 0.56 0.61 CALCIUM 8.7 8.4 8.8 No results for input(s): MG in the last 04902 hours. Recent Labs Component Name 11/01/22 0003 10/31/22 0022 10/30/22 0017 PHOS 4.1 4.1 5.1 Recent Labs Component Name 11/01/22 0848 11/01/22 0240 11/01/22 0003 10/31/22 0948 10/31/22 0022 10/30/22 0839 10/30/22 0237 PT - 14.3 - - 14.5 - 13.6 INR - 1.1 - - 1.1 - 1.0 PTT 43.6* 67.7* 71.4* - - - 77.7* - = values in this interval not displayed. No results for input(s): A1C in the last 34629 hours. Recent Labs Component Name 10/20/22 0302 06/15/22 0757 CHOL 173 204* HDL 42 37* LDLCALC 91 117* TRIG 201* 251* Recent Labs Component Name 06/15/22 0757 TSH 1.873 No results for input(s): CKMB, CKTOTAL, CKMB, TROPONINI, BNP in the last [address] ANGIO BRAIN NECK STROKE Result Date: 10/19/2022 PROCEDURE: CT ANGIO BRAIN NECK STROKE, DATE/TIME OF EXAM: 10/19/2022 8:16 AM, LOCATION [facility] INDICATION: Code Stroke ADDITIONAL CLINICAL INFORMATION: Ordering Provider Reason For Exam: Technologist Note: Additional: EXAMINATION: 1. Computed tomographic (CT) angiography of the head with contrast 2. CT angiography of the neck with contrast TECHNIQUE: CT angiography of the headand neck was obtained after the uneventful administration [...] a concurrent noncontrasted head CT for detailed intracranialfindings including findings suggesting an acute right MCA [...] arteries are patent. The basilar artery is patentpatent. 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 IMPRESSION: 1. [...] Lonnie Rae MD on 10/19/2022 8:[address] BRAIN - Stroke Result Date: 10/19/2022 PROCEDURE: CT BRAIN STROKE, DATE/TIME OF EXAM: 10/19/2022 8:04 AM, LOCATION [facility] INDICATION: Code Stroke ADDITIONAL CLINICAL INFORMATION: Ordering [...] of scott-white matter differentiation in the right frontotemporallobes and the right insula, concerning for an acute infarct. There is suggestion of a hyperdense right MCA likely represent acute thrombus (series 5 image 25). No acute intracranial hemorrhage or intra- or extra-axial fluid collections are identified. The ventricles are of normal size, shape, and morphology. The basal cisterns are patent. No mass effect or midline shift is seen. The scott-white mat ter differentiation is normal. The visualized portions of [...] Lonnie Rae MD on 10/19/2022 8:15 AM Right middle cerebral artery stroke (CMS/HCC) (POA: Unknown) Acute cerebrovascular accident (CVA) due to embolism of right middle cerebral artery (CMS/HCC) (POA: Yes) Nihss score 9 (POA: Yes) Received intravenous tissue plasminogen activator (tPA) in emergency department (POA: Yes) GERD (gastroesophageal reflux disease) (POA: Yes) Hemianopsia (POA: Yes) Weakness (POA: Yes) Left-sided sensory deficit present (POA: Yes) Gaze palsy (POA: Yes) Migraine (POA: Unknown) Hypertension (POA: Unknown) Assessment ??Consuelo Darby is a 41 year old female who presented on 10/19 with Right MCA syndrome s/p TNK. CTA 1 M1 occlusion. S/P mechanical thrombectomy with R M1 recanalization and TICI2b. CT 10/20/22 with edema and mild shift. S/P decompressive right hemicraniectomy. Echo showed a mobile aortic valve vege tation. MRI brain with scattered cortical R hemisphere infarcts with petechiae. ?? Stroke Type: Ischemic Stroke Mechanism: Cardioembolic ?? Plan Neurological ?? R M1 ischemic stroke; active - s/p TICI2b revascularization, TNK - s/p decompressive hemicrani on 10/20 for malignant MCA - HbA1C: 6.0, LDL: 91, Cardiac Enzymes; wnl - q1h vitals and neurological checks - atorvastatin 80 mg Core Measures TNK administration: yes Anti-thrombotic: holding while on AC Statin: atorvastatin 80mg DVT prophylaxis: heparin gtt Swallow Evaluation: pending PT/OT Evaluation: pending Smoking cessation: N/A Migraine - verapamil 40 TID GENESIS - cont home amitriptyline Cardiovascular ? 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 CT C/A/P/ ordered. - dentist evaled teeth, no concern - Follow blood cultures. If negative at 48 h will start heparin gtt - CT cardiac concerning more for vegetation R illiac and common femoral artery occlusion - s/p R common femoral thrombectomy and patch angioplasty by vasc surgery ?? HTN: - home metop Blood Pressure Goals: SBP <160, map >70 Respiratory ? #AHRF - resolved - Extubated - Aspiration precautions - Elevate head of bed - Maintain oxygen saturation > 92% - Monitor for respiratory distress Gastrointestinal ? No acute issues - NPO until passes swallow. TF - CT a/p to look for intraabdominal abscess - PEG, holding in the setting of infection Renal/Electrolytes ? No acute issues ?? - Monitor intake and output - Replete electrolytes as needed Hematology ? No acute issues ?? - Transfuse for hemoglobin < 7.0 g/dL Endocrine ? Vit D deficiency - Vit D 2,000 U daily Infectious Disease ? Concern for vegetation on left coronary cusp ??Leukocytosis with bandemia - ID consult. See details above Musculoskeletal ? No acute issues Disposition ? - PT/OT pending ?? Individual Modifiable Risk Factors Hypertension: no Hyperlipidemia: no Diabetes: no Atrial Fibrillation: no Tobacco: no Tim Marinelli MD Neurology Resident Associated attestation - Jim Walter MD - 11/09/2022 10:23 AM CDT NEUROVASCULAR SERVICE ATTESTATION I saw and examined the patient with the Resident. I have verified all details of the Resident's note and agree with the Resident's documentation. Date of Service: 2022 Jim Walter MD * Fariha Rosales MD - 2022 8:44 AM CDT Images from the original note were not included. Neurocritical Care Progress Note Consuelo Darby Age: [age] year old Date of : 1980 Date of Admission: 10/19/2022 Hospital Day: 13 Subjective History of Present Illness Consuelo Darby is a 41yo M who developed acute onset L sided weakness, L-sided sensory deficits, and dysarthria. L sided weakness resolved in route and dysarthria improved in route. On arrival patient noted to Amy Roche hemainopsia, mild dysarthria, and extinction. NIHSS: 7. Patient was givenTNK and code IVR was activated. TICI2b revascularization of the R MCA M1 occlusion. 10/19: Cardene drip for maintaining SBP <140 post MT. 10/20: Taken for hemicrani with nsg. Intubated 10/21: Off levo, prop and fent. On Precedex. Tolerating PSV. 10/22: CTH showed increased edema but no MLS. ICPs wnl. Tolerating PSV well. 10/23: aortic valve mobile vegetation identified on SARAH. BCX ordered. Held off on heparin due to bleeding risk and awaiting blood cultures. ICPm removed. On PSV. 10/24: Extubated to 4L NC. ID consulted. Started empiric abx vanc rocephin. MRI with acute subacute small infarcts in L MCA territory 10/25: started heparin drip with aPTT goals of 60-80. CT CAP: no masses or infections, occlusion of the R EIA + proximal EXTRUDING PRESS ADJUSTER 10/26: reached goal aptt overnight. Neuro exam stable. CTH stable, no bleed. Puentes placed (straight caths painful) 10/27: No acute concerns. Extra workup per ID sent. 10/28: Rash over R flank, given benadryl and hydrocortisone cream 10/29: No acute events overnight. Remained stable hemodynamically and neurologically. Discussed PEG placement with at bedside today who is in agreement. GI consulted 10/30: No acute events overnight. Going to OR today, with vascular surgery for occlusion of R EIA and proximal EXTRUDING PRESS ADJUSTER. Thrombectomy and patch angioplasty done 10/31: GI was supposed to do PEG today but held off due to concern for abdominal abscess. Recommended an abdominal and pelvis CT. Restarted heparin and tube feeds. Had a CTH done overnight due to increased PTT Interval History: No acute events overnight. CT abdomen pelvis done. No abscess shown. Spoke to GI. They will do PEG tube today. Objective BP 129/58 Pulse 86 Temp 98.4 ??F (36.9 ??C) (Axillary) Resp 17 Ht 1.626 m (5' 4 ) Wt 95.3kg (210 lb) SpO2 96% Temp (30hrs) Max:98.6 ??F (37 ??C) Body mass index is 36.05 kg/m??. Exam - Neurologic Awake and alert Follows some commands minimally. Can squeeze fingers on command Pupils reactive bilaterally Cough and gag present Opens eyes to verbal stimuli Moves RUE/RLE spont Follows commands on RUE/RLE LUE/LLE spontaneous foot movement and finger movement noted. Did not follow commands on left side. Con - afebrile Heent - carla on right side of head, soft scalp and MCA IRMA pulse present. S/p DHC Neck - no masses, trachea midline.NGT in place CV - no chest wall tenderness, tachycardia present, no MGR. Regular rhythm. Normal S1 and S2 Pulm - normal respiratory effort Abd - soft, NTND, bowel sounds present Labs: Reviewed. Imaging: Reviewed Hospital Problems on Admission: Right middle cerebral artery stroke (CMS/HCC) (POA: Unknown) Acute cerebrovascular accident (CVA) due to embolism of right middle cerebral artery (CMS/HCC) (POA: Yes) Nihss score 9 (POA: Yes) Received intravenous tissue plasminogen activator (tPA) in emergency department (POA: Yes) GERD (gastroesophageal reflux disease) (POA: Yes) Hemianopsia (POA: Yes) Weakness (POA: Yes) Left-sided sensory deficit present (POA: Yes) Gaze palsy (POA: Yes) Migraine (POA: Unknown) Hypertension (POA: Unknown) Assessment Consuelo Darby is a 42 year old female presenting with R gaze preference, L hemianopsia, L arm and leg hemiparesis, and L extinction. CTA with RMCA M1 occlsuion. S/P TNK and MT with TICI 2B recanalization. Admitted to neuroICU for post MT and post TNK monitoring. S/P DHC on 10/20 and remained intubated after procedure. Extubated 10/24 Found to have mobile mass on aortic valve on SARAH. Differentials include infective endocarditis, non-infective endocarditis and fibroelastoma Found to have occlusion of the R EIA + proximal EXTRUDING PRESS ADJUSTER likely iatrogenic Plan Neurological R MCA M1 occlusion s/p MT with TICI 2B recanalization S/P TNK administration. 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 Marqeuz in 10-14 days for wound check and staple removal. - Neurological checks q1hr - Pupillometer checks q1hr with recorded NPIs q1hr - ASA 81 held while on heparin gtt - Lipitor 80g daily - Head of bed > 30?? Hx Migraines - On Amitriptyline 50 mg BID and Verapamil 120mg daily at home. Hold amitriptyline. Cardiovascular HR 75-133, BP Min: 95/52 Max: 174/91 Hx of Hypertension - On Metoprolol 25 mg BID at home, continued. Endocarditis, infective vs non-infective vs fibroelastoma - Mobile mass on aortic valve seen on SARAH - UDS negative on admission, denies IV drug use - ID on board. Blood cultures obtained. Blood cultures have been negative. However, will continue 4weeks of antibiotics. Will speak to ID and get more info regarding Abx regimen and duration. - Fungal workup negative - Rheumatology was consulted to evaluate for non-infective endocarditis. All workup negative for rheumatological causes, no evidence of Antiphospholipid syndrome - CTS consulted for possible removal of vegetation. However, not a candidate at this time. - 10/25 started heparin drip. aptt goal 60-80, no boluses. - Ordered in a follow up SARAH for tomorrow as per cardiology recommendations - SBP goal < 160 No PRNs ordered at this time. Nursing staff told to call MD if consistently elevated blood pressures. Respiratory AHRF- resolved - Intubated after hemicrani on 10/20. Extubated 10/24 - Currently on room air - Bronchial hygiene q4h, vest and if able to cough will switch to aerobika - Aspiration precautions - Elevate head of bed 30-45 degrees - Frequent suctioning, no NT suctioning while on heparin - Maintain oxygen saturation > 92% Renal/Electrolytes Intake/Output Summary (Last 24 hours) at 2022 0844 Last data filed at 2022 0600 Gross per 24 hour Intake 3517.56 ml Output 2525 ml Net 992.56 ml Urinary retention - continue tamsulosin - requiring frequent straight caths, extremely painful. Thus puentes placed 10/26 - UA normal - Urine Cx negative Electrolyte derangements - Replete electrolytes as needed Infectious Disease Temp (24hrs), Av.4 ??F (36.9 ??C), Min:98.2 ??F (36.8 ??C), Max:98.5 ??F (36.9 ??C) Leukocytosis - Blood cultures negative - on empiric abx vanc and rocephin SOT 10/25 -ID consulted, recommended labs ordered. - Will continue antibiotics for minimum of 4 weeks ( will talk to ID about abx) - Monitor for fevers - Ramirez culture if febrile Gastrointestinal Hx GERD - Lansoprozole 30 mg ordered. - Diet: Goal TF Vital 55cc/hr, FWF [id number] - GI ppx: Lansoprozole - Last BM: 10/30 - BM regimen: senna and miralax - GI to do PEG placement today. Endocrine Patient was taking oral contraceptive home medication. - A1c 6.0 - Accuchecks Hematology Recent Labs Component Name 11/01/22 0003 10/27/22202810/27/22 0054 WBC 20.6* - 19.5* HGB 10.1* - 8.0* HCT 31.6* - 24.6* PLTCOUNT 437* - 519* PLATELET - - Occasional* - = values in this interval not displayed. #Occlusion of the R EIA + proximal EXTRUDING PRESS ADJUSTER likely iatrogenic - vascular surgery; OR today for right femoral cutdown, thrombectomy, angiogram with possible intervention, possible vein harvest. - Thrombus sent for pathology on 10/30. Will follow up - DP pulses present DVT ppx: heparin gtt Musculoskeletal No active issues Disposition - PT/OT pending Feeds/Fluids: Tube Feeds. Paused right now Analgesia: tylenol Sedation: none Thromboprophylaxis: scd, heparin gtt HOB: HOB >30 degrees Ulcer Ppx: Lansozprozole 30 Glucose: wnl BR: senna and miralax Indwelling lines: 2 PIVs, NGT Family: updated at bedside Fariha Rosales MD Neurology Resident. PGY-3 [facility]. Associated attestation - Julio Cesar Arriaza MD - 11/02/2022 10:50 AM CDT Neurocritical Care Attending I reviewed the history, laboratory tests, imaging, and other investigations. I also examined the patient independently. I agree with the resident's notes. We formulated the diagnosis and plan together. Please refer to this note for any revisions and additional details. Exam: BP 132/86 Pulse 87 Temp 98 ??F (36.7 ??C) (Oral) Resp 18 Ht 1.626 m (5' 4 ) Wt 95.3 kg (210 lb) SpO2 97% Patient Active Problem List: GERD (gastroesophageal reflux disease) Hemianopsia Weakness Left-sided sensory deficit present Gaze palsy Acute cerebrovascular accident (CVA) due to embolism of right middle cerebral artery (CMS/HCC) Nihss score 9 Received intravenous tissue plasminogen activator (tPA) in emergency department Migraine Hypertension Right middle cerebral artery stroke (CMS/HCC) Presence of externally removable percutaneous endoscopic gastrostomy (PEG) tube (CMS/HCC) Julio Cesar Arriaza MD 11/02/2022 Neurocritical Care The patient is at high risk for complications and morbidity or mortality. The patient is criticallyill with vital organ impairment or failure with high probability of imminent or life-threatening deterioration in the patient's condition. Total critical care time = 30 minutes The time involved in teaching, review of educational materials, and performance of separately billable procedures were not included in the time quoted here. Time spent with family meeting was included only if the patient was incapable of providing the necessary information or participating in decision-making of critical decisions regarding the direction of the patient's care. * Tamia Sorto RN - 2022 6:33 AM CDT Problem: Pain/Discomfort Goal: Patient uses pharmacological and non-pharmacological pain management strategies. Outcome: Progressing Goal: Patient verbalizes acceptable level of pain relief and ability to engage in desired activity. Outcome: Progressing Problem: Mobility Goal: Patient's mobility/activity will be maintained as optimum level for age, diagnosis and physical limitations Outcome: Progressing Goal: Continuum of care needs are further met through referral to outpatient services when appropriate. Outcome: Progressing Goal: Patient reports the ability to perform Activities of Daily Living. Outcome: Progressing Problem: Communication Impairment/Dysarthria Goal: Ability to express needs and understand communication Outcome: Progressing Problem: Skin Integrity Goal: Skin integrity is maintained or improved Outcome: Progressing Problem: Neurological Deficit Goal: Neurological status is stable or improving Outcome: Progressing * Barbara Arteaga - 10/31/2022 4:45 PM CDT offered support to Consuelo, her Salo and mom Sandra; asked if Consuelo hadgotten her peg today and Salo said she would get it in a day or two. asked how Consuelo's vascular surgery went and Sandra shared that Consuelo's leg was hurting; Consuelo held up 4 fingers when asked to rate her pain scale. RN at bedside and indicated he had just administered pain meds. 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 chaplain Cici Ascom [phone] outbound call center representative [phone] * Trevor Helton PharmD - 10/31/2022 3:33 PM CDT ACTIVE CONSULTS TO PHARMACY/DISEASE STATE MONITORING Pharmacy Consult: Vancomycin ASSESSMENT/PLAN Indication: suspected infective endocarditis c/b septic emboli to FINE HAIRER with Goal Level: 15-20 mcg/ml ID consulted/following: per ID 10/27 vanc can be stopped once blood cultures finalize. Plan is 4 weeks ceftriaxone and doxycycline for culture negative endocarditis Assessment: Day of treatment: 7 End of treatment date: to be determined Current dosing regimen: 1750 mg, Q8 hr Renal assessment: considered stable at this time as patient has Estimated Creatinine Clearance: 151mL/min (by C-G formula based on SCr of 0.56 mg/dL). MRSA positive/other pertinent micro: MRSA PCR and all blood cultures negative or NGTD, bartonella PCR in process See chart below Recent Labs Component Name 10/31/22 0948 10/28/22 0920 10/26/22 0838 VANCTROUGH 25.4* 16.5 14.0 Using steady state pharmacokinetic calculations, extrapolated true trough = 16.1 mcg/mL and is therapeutic to goal Plan Dosing: Instructed RN to hold 1100 dose in the setting of supratherapeutic level Will adjust dose to 1500 mg Q8 hr. This regimen calculates to provide a estimated trough = 14.5 mcg/mL and/or AUC of 585 mg-h/L. Monitoring Will order a vancomycin trough level prior to subsequent maintenance dose on 11/02 at 0700 and adjust regimen if indicated. Continue to monitor patient???s renal function and cultures as needed. Yoon Cuadra, PharmD 1:04 PM 10/31/2022 [facility] Vancomycin Guideline * Ronda Crawley OT - 10/31/2022 2:[address] [facility] Occupational Therapy Splint Check Note Patient Name Consuelo Darby Date of 1980 Age [age] year old Type of Splint: foot drop resting hand Splint Issued by: Not applicable-follow up visit Splint Check Completed: No issues noted. Skin intact and splint fitting appropriately Treatment Plan: Patient/Family education completed. and Will continue to monitor splint while patient in hospital. 10/31/2022 * Vickie Muller MD - 10/31/2022 1:30 PM CDT Stroke Service Daily Progress Note Consuelo Darby Age: [age] year old Date of : 1980 Date of Admission: 10/19/2022 Hospital Day: 12 Subjective Consuelo Darby is a 41yo M hemiplegic migraine, GERD, GENESIS. who developed acute onset L sided weakness, L-sided sensory deficits, and dysarthria. L sided weakness resolved in route and dysarthria improved in route. On arrival patient noted to hae L gaze plasy, L hemainopsia, mild dysarthria, and extinction. NIHSS: 7. Patient was given TNK and code IVR was activated. TICI2b revascularization of theR MCA M1 occlusion. Admitted to ICU for post- thrombectomy monitoring. Repeat CTH showing edema in RMCA territory. On 10/20/22 patient taken for hemicraniectomy, post-op CTH showing stable midline shift. Initial hypercoag work up negative, repeat in [address], QDay CTH. NSGY following. CTH 10/22 showing large R MCA infarct, minimal midline. shift. Starting lovenox. -10/23- SARAH concerning for aortic cusp vegetations. [...] Bilateral pulses are present. Vascular surgery consult. ?? Interval History: GI concerned about an intraabdominal abscess based on leukocytosis with bandemia and thromobocytosis. PEG tube postponed until further workup. Will get CT a/p. Patient having pain around incision site. Will start pain medications. Objective Patient Vitals for the past 24 hrs: BP Temp Temp src Pulse Resp SpO2 10/31/22 1031 136/68 -- -- 88 -- -- 10/31/22 0800 135/72 98.2 ??F (36.8 ??C) Axillary 75 19 95 % 10/31/22 0700 -- -- -- 73 21 97 % 10/31/22 0600 -- -- -- 96 18 96 % 10/31/22 0500 -- -- -- 83 20 98 % 10/31/22 0400 -- 98.6 ??F (37 ??C) Oral 82 20 97 % 10/31/22 0300 -- -- -- 87 23 96 % 10/31/22 0200 -- -- -- 80 19 95 % 10/31/22 0100 -- -- -- 100 9 99 % 10/31/22 0000 -- 98.4 ??F (36.9 ??C) Oral 86 18 100 % 10/30/22 2300 -- -- -- 79 19 100 % 10/30/22 2200 -- -- -- 84 15 98 % 10/30/22 2140 133/74 -- -- 86 -- -- 10/30/22 2100 -- -- -- 81 18 97 % 10/30/221999 -- 98.3 ??F (36.8 ??C) Oral 101 13 95 % 10/30/22 1900 -- -- -- 95 15 100 % 10/30/22 1800 -- -- -- 99 21 99 % 10/30/22 1745 -- -- -- 95 18 99 % 10/30/22 1730 -- -- -- 92 -- -- 10/30/22 1700 -- -- -- 96 10 -- 10/30/22 1645 -- -- -- 93 14 99 % 10/30/22 1630 -- -- -- 96 16 98 % 10/30/22 1615 -- -- -- 101 14 98 % 10/30/22 1600 -- -- -- 100 15 98 % 10/30/22 1545 149/87 -- -- -- -- -- 10/30/22 1535 147/90 98.1 ??F (36.7 ??C) Axillary 100 14 98 % 10/30/22 1520 -- -- -- 99 15 92 % 10/30/22 1510 -- -- -- 101 15 93 % 10/30/22 1500 -- -- -- 99 13 100 % 10/30/22 1445 -- -- -- 94 14 100 % 10/30/22 1440 -- -- -- 95 13 100 % 10/30/22 1439 140/82 -- -- 95 10 100 % 10/30/22 1435 140/82 98.6 ??F (37 ??C) Oral 96 15 100 % Intake/Output Summary (Last 24 hours) at 10/31/2022 1330 Last data filed at 10/31/2022 1000 Gross per 24 hour Intake 1874.07 ml Output 2870 ml Net -995.93 ml Exam: Cortical Function Mental Status Awake, alert, follows commands Orientation REYNOLD Language Aphasia Visual Powell Intact bilaterally to confrontation Neglect No visual neglect noted, no tactile neglect noted Cranial Nerves II Pupils 3 mm and bilaterally reactive to light. Fundoscopic exam not performed. VIII Hearing is intact bilaterally to finger rub. III/IV/ Extraocular muscles intact. No diplopia, ptosis, nystagmus or convergence abnormalities noted. IX/X Palate elevated symmetrically without phonation abnormalities noted. V Facial sensation symmetric to light touch and intact bilaterally. Corneal reflex not examined. XIHead turning and shoulder shrug are intact. VII No facial palsy noted. XII Tongue is midline with normal movements and no atrophy noted. Motor Function Movement No abnormalities noted Bulk No abnormalities noted Tone No abnormalities noted Moves RUE and RLE, tries to withdraw to pain in LUE and LLE Sensory Light Touch REYNOLD Noxious Stimuli Symmetric and intact bilaterally Labs: Recent Labs Component Name 10/31/22 0022 10/30/22 0017 10/29/22 0010 10/23/22 0129 10/22/22 0153 WBC 19.6* 17.9* 21.3* - - RBC 3.30* 2.53* 2.54* - - HGB 9.9* 7.6* 7.8* - - HCT 30.4* 24.3* 24.4* - - PLT - - - - 199 - = values in this interval not displayed. Recent Labs Component Name 10/31/22 0022 10/30/22 0017 10/29/22 0010 NA 140 141 138 CL 107 107 106 CO2 24 25 24 BUN 8 11 9 CREATININE 0.56 0.61 0.54* CALCIUM 8.4 8.8 8.8 No results for input(s): MG in the last 35024 hours. Recent Labs Component Name 10/31/22 0022 10/30/22 0017 10/29/22 0010 PHOS 4.1 5.1 4.8 Recent Labs Component Name 10/31/22 0948 10/31/22 0022 10/30/22 2124 10/30/22 2032 10/30/22 0839 10/30/22 0237 10/29/22 1004 10/29/22 0214 PT - 14.5 - - - 13.6 - 13.2 INR - 1.1 - - - 1.0 - 1.0 PTT 27.2 - 25.8 27.9 - 77.7* - 60.3* - = values in this interval not displayed. No results for input(s): A1C in the last 25627 hours. Recent Labs Component Name 10/20/22 0302 06/15/22 0757 CHOL 173 204* HDL 42 37* LDLCALC 91 117* TRIG 201* 251* Recent Labs Component Name 06/15/22 0757 TSH 1.873 No results for input(s): CKMB, CKTOTAL, CKMB, TROPONINI, BNP in the last [address] ANGIO BRAIN NECK STROKE Result Date: 10/19/2022 PROCEDURE: CT ANGIO BRAIN NECK STROKE, DATE/TIME OF EXAM: 10/19/2022 8:16 AM, LOCATION [facility] INDICATION: Code Stroke ADDITIONAL CLINICAL INFORMATION: Ordering Provider Reason For Exam: Technologist Note: Additional: EXAMINATION: 1. Computed tomographic (CT) angiography of the head with contrast 2. CT angiography of the neck with contrast TECHNIQUE: CT angiography of the headand neck was obtained after the uneventful administration [...] a concurrent noncontrasted head CT for detailed intracranialfindings including findings suggesting an acute right MCA [...] arteries are patent. The basilar artery is patentpatent. 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 IMPRESSION: 1. [...] Lonnie Rae MD on 10/19/2022 8:[address] BRAIN - Stroke Result Date: 10/19/2022 PROCEDURE: CT BRAIN STROKE, DATE/TIME OF EXAM: 10/19/2022 8:04 AM, LOCATION [facility] INDICATION: Code Stroke ADDITIONAL CLINICAL INFORMATION: Ordering [...] of scott-white matter differentiation in the right frontotemporallobes and the right insula, concerning for an acute infarct. There is suggestion of a hyperdense right MCA likely represent acute thrombus (series 5 image 25). No acute intracranial hemorrhage or intra- or extra-axial fluid collections are identified. The ventricles are of normal size, shape, and morphology. The basal cisterns are patent. No mass effect or midline shift is seen. The scott-white mat ter differentiation is normal. The visualized portions of [...] Lonnie Rae MD on 10/19/2022 8:15 AM Right middle cerebral artery stroke (CMS/HCC) (POA: Unknown) Acute cerebrovascular accident (CVA) due to embolism of right middle cerebral artery (CMS/HCC) (POA: Yes) Nihss score 9 (POA: Yes) Received intravenous tissue plasminogen activator (tPA) in emergency department (POA: Yes) GERD (gastroesophageal reflux disease) (POA: Yes) Hemianopsia (POA: Yes) Weakness (POA: Yes) Left-sided sensory deficit present (POA: Yes) Gaze palsy (POA: Yes) Migraine (POA: Unknown) Hypertension (POA: Unknown) Assessment ??Consuelo Darby is a 41 year old female who presented on 10/19 with Right MCA syndrome s/p TNK. CTA 1 M1 occlusion. S/P mechanical thrombectomy with R M1 recanalization and TICI2b. CT 10/20/22 with edema and mild shift. S/P decompressive right hemicraniectomy. Echo showed a mobile aortic valve vege tation. MRI brain with scattered cortical R hemisphere infarcts with petechiae. ?? Stroke Type: Ischemic Stroke Mechanism: Cardioembolic ?? Plan Neurological ?? R M1 ischemic stroke; active - s/p TICI2b revascularization, TNK - s/p decompressive hemicrani on 10/20 for malignant MCA - HbA1C: 6.0, LDL: 91, Cardiac Enzymes; wnl - q1h vitals and neurological checks - atorvastatin 80 mg Core Measures TNK administration: yes Anti-thrombotic: holding while on AC Statin: atorvastatin 80mg DVT prophylaxis: heparin gtt Swallow Evaluation: pending PT/OT Evaluation: pending Smoking cessation: N/A Migraine - verapamil 40 TID GENESIS - cont home amitriptyline Cardiovascular ? 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 CT C/A/P/ ordered. - dentist evaled teeth, no concern - Follow blood cultures. If negative at 48 h will start heparin gtt - CT cardiac concerning more for vegetation R illiac and common femoral artery occlusion - Vascular surgery on 10/30 ?? HTN: - home metop Blood Pressure Goals: SBP <160, map >70 Respiratory ? #AHRF - Extubated - Aspiration precautions - Elevate head of bed - Maintain oxygen saturation > 92% - Monitor for respiratory distress Gastrointestinal ? No acute issues - NPO until passes swallow. TF - CT a/p to look for intraabdominal abscess - PEG, holding in the setting of infection Renal/Electrolytes ? No acute issues ?? - Monitor intake and output - Replete electrolytes as needed Hematology ? No acute issues ?? - Transfuse for hemoglobin < 7.0 g/dL Endocrine ? Vit D deficiency - Vit D 2,000 U daily Infectious Disease ? Concern for vegetation on left coronary cusp ??Leukocytosis with bandemia - ID consult. See details above Musculoskeletal ? No acute issues Disposition ? - PT/OT pending ?? Individual Modifiable Risk Factors Hypertension: no Hyperlipidemia: no Diabetes: no Atrial Fibrillation: no Tobacco: no Vickie Muller PGY-2 Neurology resident Associated attestation - Jim Walter MD - 11/09/2022 10:23 AM CDT NEUROVASCULAR SERVICE ATTESTATION I saw and examined the patient with the Resident. I have verified all details of the Resident's note and agree with the Resident's documentation. Date of Service: 10/31/2022 Jim Walter MD * Shania Andrea, RD/LD - 10/31/2022 12:40 PM CDT Clinical Nutrition Assessment Brief Synopsis: Patient is at Nutrition Risk; Specific criteria can be found in assessment below Nutrition Plan: Jevity 1.5 at 45 ml/hr. Provides 1620 kcal, 69 g protein, 233 g carbohydrate, 821 ml free water. +50 ml q 6 hrs free water flush or per MD if on IVF +100 ml q4 hrs free water flush or per MD if not on additional fluids If BG continues to remain elevated/becomes a concern, recommend Glucerna 1.2 at 50 ml/hr. Provides 1440 kcal, 72 g protein, 137 g carbohydrate, 966 ml free water. Recommendations to Physician: See above Comments: Pt scheduled for reassesment. Last BM 10/29. See above recs for TF change if BG becomes a concern. RD remains available PRN. F/u per clinical guidelines. Assessment: Med/Surg History and Clinical Diagnoses: 41yo M who developed acute onset L sided weakness, L-sidedsensory deficits, and dysarthria. L sided weakness resolved in route and dysarthria improved in route. On arrival patient noted to L gaze plasy, L hemainopsia, mild dysarthria, and extinction. Height: 162.6 cm (5' 4 ) Weight: 95.3 kg (210 lb) BMI: Body mass index is 36.05 kg/m??. BMI Range: Severely Obese Class 2 IBW/lb (Calculated) Female: 120, Recent Weights/Methods 12/09/2018 0804 01/09/2020 1050 01/10/2021 1117 08/25/2021 0819 02/08/2022 1532 10/19/2022 0803 10/19/2022 0827 10/20/2022 1400 Weight: 81.6 kg (180 lb) 86.5 kg (190 lb 9.6 oz) 80 kg (176 lb 6.4 oz) 84.8 kg (187 lb) 93.3 kg (205 lb 11.2 oz) 95.3 kg (210 lb 1.3 oz) 95.3 kg (210 lb 1.3 oz) 95.3 kg (210 lb) Weight Method (Utilize Scales): Stated -- -- Standing -- -- Bedscale -- Wt Comments: Diet order accuracy Current diet order: NPO Current tube feeding order: Jevity 1.5 @ 45mL/hr Nutrition recommendation: agree with current nutrition order P.O.Intake for the past 48 hrs: No data recorded Supplement(s) Consumed- Last 48 hours None Food Allergies: No known food allergies GI Concerns: None Chewing/Swallowing: Other (Comment) (has not been assessed by SIGNALING PROJECT ENGINEER) Pain affectingintake: No Estimated Needs: KCAL: [id number] (25-30kcal/kg of IBW) Protein (g): 66-77 (1.2-1.4gm/kg of IBW) Fluid (ml): 1 ml/kcal Needs based on: Kcal/kg- (Comment) (55kcal/kg of IBW) Recommended Access Route: TF Laboratory values: Recent Labs Component Name 10/31/22 0022 10/30/22 0017 10/29/22 0010 10/20/22 0302 10/19/22 0824 10/19/22 0808 06/15/22 0757 12/09/18 0812 07/25/18205503/01/16 0817 0000 BUN 8 11 9 - 13 - 12 10 7 9 - CREATININE 0.56 0.61 0.54* - 0.84 - 0.74 0.82 0.93 0.60 - NA 140 141 138 - 139 - 138 - - - - POTASSIUM 4.2 4.0 4.1 - 4.2 - 5.1* 3.8 3.8 3.6 - CL 107 107 106 - 108* - 107 - - - - CO2 24 25 24 - 21* - 23 24 21* 21* - GLUCOSE 119* 134* 110 - 109 - 104 120* 105 83 - CALCIUM 8.4 8.8 8.8 - 8.9 - 8.9 9.4 9.2 8.1* - PROT - - - - 7.7 - 7.5 - - - - ALB - - - - 3.5 - 3.6 - - - - TBILI - - - - 0.1* - 0.1* - - - - ALKPHOS - - - - 52 - 44 56 52 111 - ALT - - - - 16 - 9 17 12* 21 - AST - - - - 19 - 17 18 20 25 - ANIONGAP 13 13 12 - 14 - 13 12 11 10 - BCR 14 18 17 - 15 - 16 - - - - OSMOLALITY 289 293 285 - 289 - 286 - - - - AGRATIO - - - - 0.8* - 0.9* - - - - EGFR >90 >90 >90 - >90 - >90 >60 >60 >60 - EGFRAFR - - - - - - - >60 >60 >60 - - = values in this interval not displayed. Medications: Current Facility-Administered Medications Medication ??? 0.9% NaCl injection 3 mL And ??? 0.9% NaCl injection 1-10 mL ??? 0.9% NaCl injection 3 mL And ??? 0.9% NaCl injection 3 mL ??? acetaminophen (Tylenol) tablet 500 mg ??? atorvastatin (Lipitor) tablet 80 mg ??? cefTRIAXone (Rocephin) 2,000 mg in 0.9% NaCl IV 50 mL IVPB ??? dextrose 5 % and lactated ringers infusion ??? diphenhydrAMINE-zinc acetate (Benadryl Extra Strength) 2-0.1 % cream ??? guaiFENesin (Robitussin) solution 10 mL ??? heparin 100 units/mL in dextrose 5 % infusion ??? hydrocortisone (Hytone) 2.5 % ointment ??? iopamidol (Isovue 370) 76 % contrast ??? lactated ringers infusion ??? lansoprazole (Prevacid) suspension 30 mg ??? loratadine (Claritin) tablet 10 mg ??? metoprolol tartrate IR (Lopressor) tablet 25 mg ??? polyethylene glycol 3350 (Miralax) packet 17 g ??? senna-docusate (Senokot-S) tablet 1 tablet ??? tamsulosin (Flomax) capsule 0.4 mg ??? vancomycin (Vancocin) 1,750 mg in 535 mL IVPB ??? vancomycin (Vancocin) IV dose per pharmacy ??? verapamil (Isoptin) tablet 40 mg ??? vitamin D3 (Cholecalciferol) 25 MCG (1000 UNITS) tablet 2,000 Units Skin/Wound: WDL Education needed: Stroke Nutrition Therapy Education Provided: Prior to Discharge Nutrition Care Process (1) Nutrition Diagnostic Statement: Inadequate oral intake related to:: decreased ability to consume or tolerate food and/or fluids due to illness as evidenced by:: oral intake insufficient to meet estimated requirements Nutrition Diagnostic Statement Progress: Nutrition problem continues Nutrition Intervention: Meals and snacks: Monitoring: TF, labs, meds, BM, weight Evaluation: Nutrition Goal: Total intake will meet estimated nutrient needs Nutrition Goal Timeframe: Throughout stay Nutrition Goal Progress: Continue with current goal * Fariha Rosales MD - 10/31/2022 12:35 PM CDT Images from the original note were not included. Neurocritical Care Progress Note Consuelo Darby Age: [age] year old Date of : 1980 Date of Admission: 10/19/2022 Hospital Day: 12 Subjective History of Present Illness Consuelo Darby is a 41yo M who developed acute onset L sided weakness, L-sided sensory deficits, and dysarthria. L sided weakness resolved in route and dysarthria improved in route. On arrival patient noted to R gaze plasy, L hemainopsia, mild dysarthria, and extinction. NIHSS: 7. Patient was givenTNK and code IVR was activated. TICI2b revascularization of the R MCA M1 occlusion. 10/19: Cardene drip for maintaining SBP <140 post MT. 10/20: Taken for hemicrani with nsg. Intubated 10/21: Off levo, prop and fent. On Precedex. Tolerating PSV. 10/22: CTH showed increased edema but no MLS. ICPs wnl. Tolerating PSV well. 10/23: aortic valve mobile vegetation identified on SARAH. BCX ordered. Held off on heparin due to bleeding risk and awaiting blood cultures. ICPm removed. On PSV. 10/24: Extubated to 4L NC. ID consulted. Started empiric abx vanc rocephin. MRI with acute subacute small infarcts in L MCA territory 10/25: started heparin drip with aPTT goals of 60-80. CT CAP: no masses or infections, occlusion of the R EIA + proximal EXTRUDING PRESS ADJUSTER 10/26: reached goal aptt overnight. Neuro exam stable. CTH stable, no bleed. Puentes placed (straight caths painful) 10/27: No acute concerns. Extra workup per ID sent. 10/28: Rash over R flank, given benadryl and hydrocortisone cream 10/29: No acute events overnight. Remained stable hemodynamically and neurologically. Discussed PEG placement with at bedside today who is in agreement. GI consulted 10/30: No acute events overnight. Going to OR today, with vascular surgery for occlusion of R EIA and proximal EXTRUDING PRESS ADJUSTER. Thrombectomy and patch angioplasty done Interval History: GI was supposed to do PEG today but held off due to concern for abdominal abscess. Recommended an abdominal and pelvis CT. Restarted heparin and tube feeds. Had a CTH done overnight due to increased PTT. Objective BP 136/68 Pulse 88 Temp 98.2 ??F (36.8 ??C) (Axillary) Resp 19 Ht 1.626 m (5' 4 ) Wt 95.3kg (210 lb) SpO2 95% Temp (30hrs) Max:98.6 ??F (37 ??C) Body mass index is 36.05 kg/m??. Exam - Neurologic Awake and alert Follows some commands. Can squeeze fingers on command Pupils reactive bilaterally Cough and gag present Opens eyes to verbal stimuli Moves RUE/RLE spont Follows commands on RUE/RLE LUE/LLE spontaneous foot movement and finger movement noted. Did not follow commands on left side. Con - afebrile Heent - carla on right side of head, soft scalp and MCA IRMA pulse present. S/p DHC Neck - no masses, trachea midline.NGT in place CV - no chest wall tenderness, tachycardia present, no MGR. Regular rhythm. Normal S1 and S2 Pulm - normal respiratory effort Abd - soft, NTND, bowel sounds present Labs: Reviewed. Imaging: Reviewed Hospital Problems on Admission: Right middle cerebral artery stroke (CMS/HCC) (POA: Unknown) Acute cerebrovascular accident (CVA) due to embolism of right middle cerebral artery (CMS/HCC) (POA: Yes) Nihss score 9 (POA: Yes) Received intravenous tissue plasminogen activator (tPA) in emergency department (POA: Yes) GERD (gastroesophageal reflux disease) (POA: Yes) Hemianopsia (POA: Yes) Weakness (POA: Yes) Left-sided sensory deficit present (POA: Yes) Gaze palsy (POA: Yes) Migraine (POA: Unknown) Hypertension (POA: Unknown) Assessment Consuelo Darby is a 41 year old female presenting with R gaze preference, L hemianopsia, L arm and leg hemiparesis, and L extinction. CTA with RMCA M1 occlsuion. S/P TNK and MT with TICI 2B recanalization. Admitted to neuroICU for post MT and post TNK monitoring. S/P DHC on 10/20 and remained intubated after procedure. Extubated 10/24 Found to have mobile mass on aortic valve on SARAH. Differentials include infective endocarditis, non-infective endocarditis and fibroelastoma Found to have occlusion of the R EIA + proximal EXTRUDING PRESS ADJUSTER likely iatrogenic Plan Neurological R MCA M1 occlusion s/p MT with TICI 2B recanalization S/P TNK administration. 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 Marquez in 10-14 days for wound check and staple removal. - Neurological checks q1hr - Pupillometer checks q1hr with recorded NPIs q1hr - ASA 81 held while on heparin gtt - Lipitor 80g daily - Head of bed > 30?? Hx Migraines - On Amitriptyline 50 mg BID and Verapamil 120mg daily at home. Hold amitriptyline. Cardiovascular HR 75-133, BP Min: 95/52 Max: 174/91 Hx of Hypertension - On Metoprolol 25 mg BID at home, continued. Endocarditis, infective vs non-infective vs fibroelastoma - Mobile mass on aortic valve seen on SARAH - UDS negative on admission, denies IV drug use - ID on board. Blood cultures obtained. Blood cultures have been negative. However, will continue 4weeks of antibiotics. - Fungal workup negative - Rheumatology was consulted to evaluate for non-infective endocarditis. All workup negative for rheumatological causes, no evidence of Antiphospholipid syndrome - CTS consulted for possible removal of vegetation. However, not a candidate at this time. - 10/25 started heparin drip. aptt goal 60-80, no boluses. Will follow up with vascular surgery, when they think we can re-start heparin drip - CT head for a change in exam. - Restarted heparin drip. - Ordered in a SARAH for tomorrow as per cardiology recommendations - SBP goal < 160 No PRNs ordered at this time. Nursing staff told to call MD if consistently elevated blood pressures. Respiratory AHRF- resolved - Intubated after hemicrani on 10/20. Extubated 10/24, to ME - Bronchial hygiene q4h, vest and if able to cough will switch to aerobika - Aspiration precautions - Elevate head of bed 30-45 degrees - Frequent suctioning, no NT suctioning while on heparin - Maintain oxygen saturation > 92% Renal/Electrolytes Intake/Output Summary (Last 24 hours) at 10/31/2022 1235 Last data filed at 10/31/2022 1000 Gross per 24 hour Intake 2674.07 ml Output 3170 ml Net -495.93 ml Urinary retention - continue tamsulosin - requiring frequent straight caths, extremely painful. Thus puentes placed 10/26 - UA normal Electrolyte derangements - Replete electrolytes as needed Infectious Disease Temp (24hrs), Av.4 ??F (36.9 ??C), Min:98.1 ??F (36.7 ??C), Max:98.6 ??F (37 ??C) Leukocytosis - Blood cultures negative - on empiric abx vanc and rocephin SOT 10/25 -ID consulted, recommended labs ordered. - Will continue antibiotics for minimum of 4 weeks - Monitor for fevers - Ramirez culture if febrile Gastrointestinal Hx GERD - Lansoprozole 30 mg ordered. - Diet: Goal TF Vital 55cc/hr, FWF [id number] - GI ppx: Lansoprozole - Last BM: 10/30 - BM regimen: senna and miralax - GI consult for PEG placement. Will follow up Endocrine Patient was taking oral contraceptive home medication. - A1c 6.0 - Accuchecks Hematology Recent Labs Component Name 10/31/22 0022 10/27/22 2029 10/27/22 0054 WBC 19.6* - 19.5* HGB 9.9* - 8.0* HCT 30.4* - 24.6* PLTCOUNT 442* - 519* PLATELET - - Occasional* - = values in this interval not displayed. #Occlusion of the R EIA + proximal EXTRUDING PRESS ADJUSTER likely iatrogenic - vascular surgery; OR today for right femoral cutdown, thrombectomy, angiogram with possible intervention, possible vein harvest. - DP pulses present DVT ppx: heparin gtt Hypercoaguable workup per stroke team. Musculoskeletal No active issues Disposition - PT/OT pending Feeds/Fluids: Tube Feeds. Paused right now Analgesia: tylenol Sedation: none Thromboprophylaxis: scd, heparin gtt HOB: HOB >30 degrees Ulcer Ppx: Lansozprozole 30 Glucose: wnl BR: senna and miralax Indwelling lines: 2 PIVs, NGT Family: updated at bedside Fariha Rosales MD Neurology Resident. PGY-3 [facility]. Associated attestation - Julio Cesar Arriaza MD - 2022 11:23 AM CDT Neurocritical Care Attending I reviewed the history, laboratory tests, imaging, and other investigations. I also examined the patient independently. I agree with the resident's notes. We formulated the diagnosis and plan together. Please refer to this note for any revisions and additional details. Exam: BP 129/58 Pulse 90 Temp 98.4 ??F (36.9 ??C) (Axillary) Resp 13 Ht 1.626 m (5' 4 ) Wt 95.3kg (210 lb) SpO2 96% Patient Active Problem List: GERD (gastroesophageal reflux disease) Hemianopsia Weakness Left-sided sensory deficit present Gaze palsy Acute cerebrovascular accident (CVA) due to embolism of right middle cerebral artery (CMS/HCC) Nihss score 9 Received intravenous tissue plasminogen activator (tPA) in emergency department Migraine Hypertension Right middle cerebral artery stroke (CMS/HCC) Julio Cesar Arriaza MD 10/31/2022 Neurocritical Care The patient is at high risk for complications and morbidity or mortality. The patient is criticallyill with vital organ impairment or failure with high probability of imminent or life-threatening deterioration in the patient's condition. Total critical care time = 30 minutes The time involved in teaching, review of educational materials, and performance of separately billable procedures were not included in the time quoted here. Time spent with family meeting was included only if the patient was incapable of providing the necessary information or participating in decision-making of critical decisions regarding the direction of the patient's care. * Edgardo Suarez RN - 10/31/2022 11:07 AM CDT Trans to CT via bed with monitor intact. Trans back to ICU after CT. * Jerod Calderon MD - 10/31/2022 9:56 AM CDT GI Consult Progress Note Subjective: Interval History: No acute events overnight. Heparin held at midnight Labs showing persistent uptrend in wbc along with bandemia, Bcx neg so far, ramirez CT on 10/25 was unremarkable Objective: Physical Exam: BP 135/72 Pulse 75 Temp 98.2 ??F (36.8 ??C) (Axillary) Resp 19 Ht 1.626 m (5' 4 ) Wt 95.3kg (210 lb) SpO2 95% Wt Readings from Last 3 Encounters: 10/20/22 95.3 kg (210 lb) 10/23/22 95.3 kg (210 lb) 02/08/22 93.3 kg (205 lb 11.2 oz) General: non-verbal, breathing RA Eyes/ENT: No conjunctival injection, no icterus, no nasal discharge Neck: No obvious thyromegaly, no stridor Cardiac: Regular rate and rhythm, no m/r/g appreciable for me Pulm: Equal breath sounds, no increased work of breathing, no use of accessory muscles GI/Abd: Normoactive bowel sounds, not visibly distended, non tender, non rigid Neuro: non-verbal, no facial asymmetry Extremeties: No edema MSK: No joint effusion, no major deformities Labs: Recent Labs Component Name 10/31/22 0022 10/30/22 0237 10/30/22 0017 10/29/22 0214 10/29/22 0010 10/28/22 0125 10/27/22 2029 10/27/22 0608 10/27/22 0054 10/23/22 0129 10/22/22 0153 WBC 19.6* - 17.9* - 21.3* - 21.1* - 19.5* - - HGB 9.9* - 7.6* - 7.8* - 7.6* - 8.0* - - MCV 92.1 - 96.0 - 96.1 - 96.0 - 94.6 - - PLT - - - - - - - - - - 199 INR 1.1 1.0 - 1.0 - 1.0 - 1.1 - - - - = values in this interval not displayed. Recent Labs Component Name 10/31/22 0022 10/30/22 0017 10/29/22 0010 NA 140 141 138 CL 107 107 106 CO2 24 25 24 BUN 8 11 9 CREATININE 0.56 0.61 0.54* Recent Labs Component Name 10/19/22 0824 06/15/22 0757 12/09/18 0812 AST 19 17 18 ALT 16 9 17 ALKPHOS 52 44 56 TBILI 0.1* 0.1* - ALB 3.5 3.6 - Imaging: CT HEAD WO CONTRAST Result Date: 10/31/2022 IMPRESSION: Compared to prior head CT 10/28/2022: 1.Re-demonstrated postsurgical changes of decompressive right frontoparietotemporal craniectomy with multiple overlying scalp carla. Evolving heterogeneous subdural hematoma along the right frontotemporal convexity measuring up to 8 mm in maximal thickness (5/32), previously measuring up to 9 mm in thickness. 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 Increased conspicuity of a thin hyperdensity along the cortex within this region suggestive of evolving cortical laminar necrosis. 3.Re-demonstrated small hypodensity of the left inferior frontal gyrus/frontal operculum, consistent with an evolving [id number] infarct. 4.No significant midline shift. Similar-appearing size and configuration of the ventricles without evidence of hydrocephalus. Basal cisterns are patent. 5.No other convincing change. Partially imaged left nasoenteric tube. > Interpreting Provider: Amanda Real MD, PhD on 10/31/2022 1:[address] HEAD WO CONTRAST Result Date: 10/28/2022 IMPRESSION: 1. Evolving right MCA subacute infarct status post decompressive craniectomy. Grossly unchanged right frontotemporal subdural hemorrhage. Grossly unchanged gyriform hyperdensity in the infarcted area may represent subarachnoid hemorrhage. No midline shift. Unchanged mildly dilated ventricles may represent mild hydrocephalus. 2. Unchanged small focus of hypoattenuation in the left frontal lobe likely represents additional subacute infarct. The report is dictated by Kayla Stevenson MD (resident services coordinator) 1 I, Lonnie Rae MD have personally reviewed and interpreted this examination/study. > Interpreting Provider: Lonnie Rae MD on 10/28/2022 9:[address] HEAD WO CONTRAST Result Date: 10/27/2022 IMPRESSION: 1. Redemonstration of evolving right MCA subacute infarct, status post right decompressive craniectomy. The extra-axial hematoma underlying the craniectomy site and subarachnoid hemorrhage in the right cerebral sulci are grossly unchanged. Mass effect on the right lateral ventricle is unchanged. No significant midline shift. 2. Small focus of likely a subacute infarct in the left frontal lobe is unchanged. > Interpreting Provider: Lonnie Rae MD on 10/27/2022 12:[address] HEAD WO CONTRAST Result Date: 10/26/2022 IMPRESSION: 1. Redemonstration of evolving large right MCA territory acute to subacute infarct without definite evidence of hemorrhagic transformation. Unchanged minimal leftward midline shift of about 2 mm at the level of foramen of Monro and effacement of the left lateral ventricle. 2. Redemonstration of postsurgical changes from right-sided decompressive hemicraniectomy, unchanged compared to prior study. These results were discussed with stroke resident Dr Mendez by Dr. Miranda Bowen at8:05 AM on 10/26/2022 with read back confirmation and closed-loop communication. The report is dictated by Miranda Bowen MD (resident services coordinator) Oriana Ornelas MD have personally reviewed and interpreted this examination/study. > Interpreting Provider: Oriana Suarez MD on 38:[address] CHEST ABDOMEN PELVIS W CONT Result Date: 10/25/2022 Impression: 1.Occlusion of the right distal external [...] verification. > Dictated by Clarisa Cantrell MD (resident services coordinator). Alexx Ornelas have personally reviewed and interpreted this examination/study. > Interpreting Provider: Alexx Lopez on 10/25/2022 4:[address] HEAD WO CONTRAST Result Date: 10/25/2022 IMPRESSION: Redemonstrated postoperative changes consistent with right calvarial hemicraniectomy. Fluid collection overlying the lateral right cerebral hemisphere within the craniectomy defect containing some recent blood products. The overall size of this fluid collection is less than on previous study. In addition, there is less air/gas within this defect. Evolving large recent right cerebral hemisphere infarct with mass effect and approximately 2 mm of midline shift right to left. There appears to be slightly less mass effect and midline shift on today's study. Continued follow-up is recommended. Small recent cortical infarct in the lateral left frontal lobe as well as small recent infarc t in left martínez radiata which appears similar to previous study. Clinical correlation recommended.The report is dictated by Miranda Bowen MD (resident services coordinator) Joni Ornelas MD have personally reviewed and interpreted this examination/study. > Interpreting Provider: Joni Fabian MD on 10/25/2022 2:51 PM MRI BRAIN WWO CONTRAST Result Date: 10/24/2022 IMPRESSION: 1.Redemonstration of postoperative changes of a right hemicraniectomy with expected postsurgical changes as outlined above. 2.Redemonstration of evolving large right MCA territory infarction with extensive cytotoxic edema and mild external herniation of the brain through the craniectomydefect. Persistent local mass effect on the right cerebral hemisphere, effacement of the right lateral ventricle, and approximately 3-4 mm [id number] midline shift, grossly similar to the prior. 3.Mild dilation of the left lateral ventricle may represent subtle left ventricular entrapment, overall grossly similar to prior. 4.Additional multiple foci of abnormal diffusion within the left frontotemporal lobes with associated T2 FLAIR hyperintensity representing additional small acute to subacute infarcts, likely of cardioembolic etiology. Findings communicated to Dr. Mohr by Dr. Major at 1138 hours on 10/24/2022 with readback comprehension and verification. Report dictated by Tim Major MD (resident services coordinator). IJasper MD have personally reviewed and interpreted this examination/study. > Interpreting Provider: Jasper Sifuentes MD on 10/24/2022 1:59 PM Procedures: egd 2011 Normal EGD. Random duodenal biopsies taken. c scope: 08/2021 - The examined portion of the ileum was normal. ??- A few small polyps in the sigmoid colon, removed with a cold biopsy forceps. Resected and retrieved. ??- Diverticulosis in the sigmoid colon. ??- The examination was otherwise normal. Assessment: 41 year old female with a PMH significant for GERD, HTN, Migraine, obesity, procedural/surgical history significant for c/section (03/01/2016), lap cholecystomy (02/22/2012) and colonoscopy with polypectomy (08/25/2021) with acute malignant right MCA infarction with deficits including but not limited to dysphagia. Oropharyngeal dysphagia 2/2 stroke on 10/19 MBS not able to be performed given no participation in of SIGNALING PROJECT ENGINEER evaluation Patient seems to have a functional GI tract and an anticipated life expectancy > 30 days with malnutrition / poor volitional intake / malabsorption / need for gastric decompression / permanent neurological impairment . Patient has no absolute contraindications for PEG tube placement Recommendations: -recommend getting CT abd pelvis to look for abscess (pt has leukocytosis w bandemia since 10/25, along with thrombocytosis since 10/27-afebrile since however with infectious workup so far) - rest of the recs for infectious workup per primary/ID Tentatively plan for PEG placement pending clinical course. After discussion of the benefits, risks, and alternatives of the procedure, consent has been obtained from . These recommendations were discussed with GI attending, Dr. Metz We will continue to follow this patient with you. Thank you for allowing us to participate in the care of this patient. Please do not hesitate to contact us with further questions. This note was generated using fluency dictation, voice recognition errors are possible. Jerod Calderon MD Gastroenterology & Hepatology Fellow [facility] Associated attestation - Khanh Metz MD - 10/31/2022 2:27 PM CDT I have personally seen and examined this patient. I agree with the pet house sitter's findings, assessment and plan as outlined. In addition: If repeat CT negative will plan PEG tomorrow or Discussed with family at beside and with neuro attending. * Edgardo Suarez RN - 10/31/2022 8:22 AM CDT Neuro Checks, Neuro-Vascular checks Q 1 hour, HOB elevated, NPO for procedure. * Nnamdi Blue MD - 10/31/2022 7:11 AM CDT VASCULAR SURGERY PROGRESS NOTE ADMIT: 10/19/2022 7:53 AM LOS: 12 days 1 Day Post-Op 10/31/2022 HISTORY: This is a 41 year old female with a h/o R MCA stroke admitted 10/19 for R femoral access + suction thrombectomy + 8F angioseal closure; hemicraniectomy by NSAFSHAN 10/20, who presents as a consultfor occlusion identified on CT scan performed 10/25/22. She is currently in the neuro ICU for recovery and is also being evaluated by cardiac surgery for a aortic valve vegetation concerning for endocarditis vs fibroelastoma. Vascular surgery consulted for iatrogenic vascular injury of the external iliac artery. She currently does not have signs of acute limb ischemia and is motor/sensory intact with a multiphasic DP signal present. ?? Procedures: None Vascular Surgery History 10/31/22 - R common femoral thrombectomy and patch angioplasty SUBJECTIVE: No acute events overnight. Patient denies any new onset of pain in her lower extremities or groin. Patient is afebrile and hemodynamically stable. OBJECTIVE: Blood pressure 133/74, pulse 73, temperature 98.6 ??F (37 ??C), temperature source Oral, resp. rate21, height 1.626 m (5' 4 ), weight 95.3 kg (210 lb), last menstrual period 02/01/2022, SpO2 97 %, not currently . Temp: [98.1 ??F (36.7 ??C)-98.6 ??F (37 ??C)] 98.6 ??F (37 ??C) Pulse: [73-101] 73 Resp: [9-23] 21 BP: (116-149)/(57-90) 133/74 Arterial Line BP #1: (115-158)/(56-76) 128/56 DIET: DIET NPO Except: SIPS WITH MEDS Ins/Outs: 10/30 0701 - 10/31 0700 In: 5459.6 [I.V.:4759.6] Out: 3520 [Urine:3100] Scheduled Medications: ??? 0.9% NaCl 3 mL Intracatheter q8h ??? 0.9% NaCl 3 mL Intracatheter q8h ??? atorvastatin 80 mg Enteral Tube AT BEDTIME ??? cefTRIAXone 2 g Intravenous q12h ??? guaiFENesin 10 mL Enteral Tube q12h ??? hydrocortisone Topical 4X/day ??? lansoprazole 30 mg Enteral Tube QDAY BEFORE BREAKFAST ??? loratadine 10 mg Enteral Tube QDAY ??? metoprolol tartrate IR 25 mg Enteral Tube q12h ??? polyethylene glycol 3350 17 g Enteral Tube QDAY ??? senna-docusate 1 tablet Enteral Tube QDAY ??? tamsulosin 0.4 mg Enteral Tube QDAY ??? vancomycin 1,750 mg Intravenous q8h ??? vancomycin (VANCOCIN) IV dose per pharmacy Does not apply DIRECTED ??? verapamil 40 mg Enteral Tube q8h ??? Vitamin D3 (cholecalciferol) 2,000 Units Enteral Tube QDAY Continuous Medications: dextrose 5 % and lactated ringers, , Last Rate: 75 mL/hr at 10/30/222037 lactated ringers, PRN Medications: 0.9% NaCl, 250 mL, Once PRN 0.9% NaCl, 1-10 mL, PRN 0.9% NaCl, 3 mL, PRN acetaminophen, 500 mg, q4h PRN diphenhydrAMINE-zinc acetate, , PRN Physical Exam Gen: NAD ENT: Hemicraniectomy incision appears c/d/i. NG in place. Resp: NLR CV: RRR Abd: Soft, Non-distended and Non-peritoneal, no rebound/guarding MSK: Both lower extremities are WWP, motor/sensory intact. No pallor or cyanosis. Vasc: pulse exam: Present multiphasic R DP/PT Neuro: follows commands RECENT LABS: Recent Labs Component Name 10/31/22 0022 10/30/22 0017 10/29/22 0010 10/23/22 0129 10/22/22 0153 WBC 19.6* 17.9* 21.3* - - HGB 9.9* 7.6* 7.8* - - HCT 30.4* 24.3* 24.4* - - MCV 92.1 96.0 96.1 - - PLT - - - - 199 - = values in this interval not displayed. Recent Labs Component Name 10/31/22 0022 10/30/22 0017 10/29/22 0010 NA 140 141 138 POTASSIUM 4.2 4.0 4.1 CL 107 107 106 CO2 24 25 24 BUN 8 11 9 CREATININE 0.56 0.61 0.54* CALCIUM 8.4 8.8 8.8 MAGNESIUM 1.9 2.1 2.0 PHOS 4.1 5.1 4.8 Recent Labs Component Name 10/19/22 0824 06/15/22 0757 12/09/18 0812 PROT 7.7 7.5 - ALB 3.5 3.6 - TBILI 0.1* 0.1* - AST 19 17 18 ALT 16 9 17 ALKPHOS 52 44 56 Recent Labs Component Name 10/31/22 0022 10/30/22 2124 10/30/22 2032 10/30/22 1659 10/30/22 0839 10/30/22 0237 10/29/22 1004 10/29/22 0214 INR 1.1 - - - - 1.0 - 1.0 PTT - 25.8 27.9 175.2* - 77.7* - 60.3* - = values in this interval not displayed. RECENT IMAGING: CT HEAD WO CONTRAST Result Date: 10/26/2022 IMPRESSION: 1. Redemonstration of evolving large right MCA territory acute to subacute infarct without definite evidence of hemorrhagic transformation. Unchanged minimal leftward midline shift of about 2 mm at the level of foramen of Monro and effacement of the left lateral ventricle. 2. Redemonstration of postsurgical changes from right-sided decompressive hemicraniectomy, unchanged compared to prior study. These results were discussed with stroke resident Dr Mendez by Dr. Miranda Bowen at8:05 AM on 10/26/2022 with read back confirmation and closed-loop communication. The report is dictated by Miranda Bowen MD (resident services coordinator) IOriana MD have personally reviewed and interpreted this examination/study. > Interpreting Provider: Oriana Suarez MD on 38:[address] CHEST ABDOMEN PELVIS W CONT Result Date: 10/25/2022 Impression: 1.Occlusion of the right distal external [...] verification. > Dictated by Clarisa Cantrell MD (resident services coordinator). IAlexx have personally reviewed and interpreted this examination/study. > Interpreting Provider: Alexx Lopez on 10/25/2022 4:[address] HEAD WO CONTRAST Result Date: 10/25/2022 IMPRESSION: Redemonstrated postoperative changes consistent with right calvarial hemicraniectomy. Fluid collection overlying the lateral right cerebral hemisphere within the craniectomy defect containing some recent blood products. The overall size of this fluid collection is less than on previous study. In addition, there is less air/gas within this defect. Evolving large recent right cerebral hemisphere infarct with mass effect and approximately 2 mm of midline shift right to left. There appears to be slightly less mass effect and midline shift on today's study. Continued follow-up is recommended. Small recent cortical infarct in the lateral left frontal lobe as well as small recent infarc t in left martínez radiata which appears similar to previous study. Clinical correlation recommended.The report is dictated by Miranda Bowen MD (resident services coordinator) Joni Ornelas MD have personally reviewed and interpreted this examination/study. > Interpreting Provider: Joni Fabian MD on 10/25/2022 2:51 PM MRI BRAIN WWO CONTRAST Result Date: 10/24/2022 IMPRESSION: 1.Redemonstration of postoperative changes of a right hemicraniectomy with expected postsurgical changes as outlined above. 2.Redemonstration of evolving large right MCA territory infarction with extensive cytotoxic edema and mild external herniation of the brain through the craniectomydefect. Persistent local mass effect on the right cerebral hemisphere, effacement of the right lateral ventricle, and approximately 3-4 mm vjykc-he-zevj midline shift, grossly similar to the prior. 3.Mild dilation of the left lateral ventricle may represent subtle left ventricular entrapment, overall grossly similar to prior. 4.Additional multiple foci of abnormal diffusion within the left frontotemporal lobes with associated T2 FLAIR hyperintensity representing additional small acute to subacute infarcts, likely of cardioembolic etiology. Findings communicated to Dr. Mohr by Dr. Major at 1138 hours on 10/24/2022 with readback comprehension and verification. Report dictated by Tim Major MD (resident services coordinator). I, Jasper Sifuentes MD have personally reviewed and interpreted this examination/study. > Interpreting Provider: Jasper Sifuentes MD on 10/24/2022 1:59 PM ASSESSMENT: Consuelo Darby is a 41 year old female with a h/o recent R MCA M1 stroke s/p R femoral access for MCA thrombectomy and cerebral angiogram with 8F angioseal closure on 10/19 who presents as a consult for occlusion of the R EIA + proximal EXTRUDING PRESS ADJUSTER extending into the profunda with reconstitution identified on CT scan 10/25. Per review of angio images, stick appears to be high and correlates with location of occlusion - highly suspicious for iatrogenic vascular injury of the external iliac artery. She is now s/p R common femoral thrombectomy and patch angioplasty. Patient has multiphasic DP and PT s/p procedure. Anticoagulation/Antiplatelet: Heparin gtt Antibiotics: rocephin and vancomycin Vascular Surgery High Risk Variables: None PLAN: - q4h neurovascular checks - Start aspirin 81mg - PT/OT - OOB when able - Rest of care per primary, please call with questions or concerns - Vascular surgery will s/o at this time. Patient can follow-up with Dr. Clay in 4 weeks with ABIs. Message sent to schedulers, please call [phone] to reschedule. Patient can call [phone] for any incision or wound concerns. Patient will be staffed with attending, Dr. Clay. Note to be updated with any changes. Nnamdi Blue MD Vascular Surgery Resident PGY-1 10/29/2022 7:12 AM * Tamia Sorto RN - 10/31/2022 3:45 AM CDT Problem: Neurological Deficit Goal: Neurological status is stable or improving Outcome: Progressing * Devyn Rowland MD - 10/30/2022 8:40 PM CDT Vascular Surgery Post Op Check 10/30/2022 Admit: 10/19/2022 7:53 AM Hospital Day: 12 POD: Day of Surgery NAME: Consuelo Darby Subjective: Patient returns from the OR after undergoing R iliofemoral thrombectomy, RLE angiogram, R common femoral patch angioplasty . They are resting comfortably. Their incisions are clean/dry/intact with minimal strikethrough. No nausea or vomiting. Deplorable signals Objective: Patient Vitals for the past 24 hrs: BP Temp Temp src Pulse Resp SpO2 10/30/22 1900 -- -- -- 95 15 100 % 10/30/22 1800 -- -- -- 99 21 99 % 10/30/22 1745 -- -- -- 95 18 99 % 10/30/22 1730 -- -- -- 92 -- -- 10/30/22 1700 -- -- -- 96 10 -- 10/30/22 1645 -- -- -- 93 14 99 % 10/30/22 1630 -- -- -- 96 16 98 % 10/30/22 1615 -- -- -- 101 14 98 % 10/30/22 1600 -- -- -- 100 15 98 % 10/30/22 1545 149/87 -- -- -- -- -- 10/30/22 1535 147/90 98.1 ??F (36.7 ??C) Axillary 100 14 98 % 10/30/22 1520 -- -- -- 99 15 92 % 10/30/22 1510 -- -- -- 101 15 93 % 10/30/22 1500 -- -- -- 99 13 100 % 10/30/22 1445 -- -- -- 94 14 100 % 10/30/22 1440 -- -- -- 95 13 100 % 10/30/22 1439 140/82 -- -- 95 10 100 % 10/30/22 1435 140/82 98.6 ??F (37 ??C) Oral 96 15 100 % 10/30/22 0959 139/74 98.1 ??F (36.7 ??C) Oral 80 18 100 % 10/30/22 0900 116/57 -- -- 85 15 100 % 10/30/22 0800 118/64 98.4 ??F (36.9 ??C) Axillary 81 16 100 % 10/30/22 0700 129/61 -- -- 78 17 99 % 10/30/22 0600 131/70 -- -- 98 19 98 % 10/30/22 0500 114/89 -- -- 105 (!) 37 99 % 10/30/22 0400 122/70 98.4 ??F (36.9 ??C) Axillary 80 18 99 % 10/30/22 0300 133/87 -- -- 106 13 97 % 10/30/22 0200 119/64 -- -- 79 17 99 % 10/30/22 0100 119/69 -- -- 87 17 98 % 10/30/22 0000 112/58 98.1 ??F (36.7 ??C) Axillary 80 18 99 % 10/29/22 2300 113/58 -- -- 75 17 97 % 10/29/22 2233 -- -- -- -- 17 97 % 10/29/22 2200 128/80 -- -- 98 28 96 % 10/29/22 2100 139/77 -- -- 107 27 96 % I/O last 3 completed shifts: In: 8005.5 [I.V.:6295.5; Blood Products:700] Out: 5270 [Urine:4850; Other:20; Blood Loss:400] Physical Exam: GEN: NAD HEENT: NC/AT, EOMI Resp: breathing comfortably CV: well perfused Abd: Soft, NT ND Ext: WWP Pulses: dopplerable signal, palpable dp Plan: -HD stable, afebrile -pain controlled -incision CDI -recovering well, continue post op care Devyn Rowland MD 10/30/2022 8:53 PM * Bulmaro Ochoa RN - 10/30/2022 7:21 PM CDT Care Coordination Progress Note Anticipated level of care at discharge: Home, Acute Rehab Facility: Anticipated level of care provider: None: Anticipated Discharge Date: 11/03/22: Discharge Plan: Pending patient's progress with medical treatment and care team recommendations. Per vascular surgery notes 10/30/22:- R common femoral thrombectomy and patch angioplasty completed. Orientation Level: Unable to Obtain: Family Support (Name and Phone): Extended Emergency Contact Information Primary Emergency Contact: Hi Darby Address: [address] [place] [address] [place] [address] [facility] Relation: Spouse Secondary Emergency Contact: Sandra Disla [facility] Mobile Relation: Mother Transportation at Discharge: Ambulance: READMISSION RISK SCORE is 15 at 7:22 PM 10/30/2022.: Name: Bulmaro Ochoa RN BSN manager in home [phone] * Vickie Muller MD - 10/30/2022 6:26 PM CDT Stroke Service Daily Progress Note Consuelo Darby Age: [age] year old Date of : 1980 Date of Admission: 10/19/2022 Hospital Day: 11 Subjective Consuelo Darby is a 41yo M hemiplegic migraine, GERD, GENESIS. who developed acute onset L sided weakness, L-sided sensory deficits, and dysarthria. L sided weakness resolved in route and dysarthria improved in route. On arrival patient noted to hae L gaze plasy, L hemainopsia, mild dysarthria, and extinction. NIHSS: 7. Patient was given TNK and code IVR was activated. TICI2b revascularization of theR MCA M1 occlusion. Admitted to ICU for post- thrombectomy monitoring. Repeat CTH showing edema in RMCA territory. On 10/20/22 patient taken for hemicraniectomy, post-op CTH showing stable midline shift. Initial hypercoag work up negative, repeat in [address], QDay CT. NSGY following. CTH 10/22 showing large R MCA infarct, minimal midline. shift. Starting lovenox. -10/23- SARAH concerning for aortic cusp vegetations. [...] Bilateral pulses are present. Vascular surgery consult. ?? Interval History: Vascular intervention today. Possible PEG tomorrow, holding heparin and TF at midnight. Objective Patient Vitals for the past 24 hrs: BP Temp Temp src Pulse Resp SpO2 10/30/22 1800 -- -- -- 99 21 99 % 10/30/22 1745 -- -- -- 95 18 99 % 10/30/22 1730 -- -- -- 92 -- -- 10/30/22 1700 -- -- -- 96 10 -- 10/30/22 1645 -- -- -- 93 14 99 % 10/30/22 1630 -- -- -- 96 16 98 % 10/30/22 1615 -- -- -- 101 14 98 % 10/30/22 1600 -- -- -- 100 15 98 % 10/30/22 1545 149/87 -- -- -- -- -- 10/30/22 1535 147/90 98.1 ??F (36.7 ??C) Axillary 100 14 98 % 10/30/22 1520 -- -- -- 99 15 92 % 10/30/22 1510 -- -- -- 101 15 93 % 10/30/22 1500 -- -- -- 99 13 100 % 10/30/22 1445 -- -- -- 94 14 100 % 10/30/22 1440 -- -- -- 95 13 100 % 10/30/22 1439 140/82 -- -- 95 10 100 % 10/30/22 1435 140/82 98.6 ??F (37 ??C) Oral 96 15 100 % 10/30/22 0959 139/74 98.1 ??F (36.7 ??C) Oral 80 18 100 % 10/30/22 0900 116/57 -- -- 85 15 100 % 10/30/22 0800 118/64 98.4 ??F (36.9 ??C) Axillary 81 16 100 % 10/30/22 0700 129/61 -- -- 78 17 99 % 10/30/22 0600 131/70 -- -- 98 19 98 % 10/30/22 0500 114/89 -- -- 105 (!) 37 99 % 10/30/22 0400 122/70 98.4 ??F (36.9 ??C) Axillary 80 18 99 % 10/30/22 0300 133/87 -- -- 106 13 97 % 10/30/22 0200 119/64 -- -- 79 17 99 % 10/30/22 0100 119/69 -- -- 87 17 98 % 10/30/22 0000 112/58 98.1 ??F (36.7 ??C) Axillary 80 18 99 % 10/29/22 2300 113/58 -- -- 75 17 97 % 10/29/22 2233 -- -- -- -- 17 97 % 10/29/22 2200 128/80 -- -- 98 28 96 % 10/29/22 2100 139/77 -- -- 107 27 96 % 10/29/22 2000 136/67 98.3 ??F (36.8 ??C) Oral 90 19 98 % 10/29/22 1900 128/84 -- -- 100 20 98 % Intake/Output Summary (Last 24 hours) at 10/30/2022 1826 Last data filed at 10/30/2022 1800 Gross per 24 hour Intake 5205.55 ml Output 3470 ml Net 1735.55 ml Exam: Cortical Function Mental Status Awake, alert, follows commands Orientation REYNOLD Language Aphasia Visual Powell Intact bilaterally to confrontation Neglect No visual neglect noted, no tactile neglect noted Cranial Nerves II Pupils 3 mm and bilaterally reactive to light. Fundoscopic exam not performed. VIII Hearing is intact bilaterally to finger rub. III/IV/ Extraocular muscles intact. No diplopia, ptosis, nystagmus or convergence abnormalities noted. IX/X Palate elevated symmetrically without phonation abnormalities noted. V Facial sensation symmetric to light touch and intact bilaterally. Corneal reflex not examined. XIHead turning and shoulder shrug are intact. VII No facial palsy noted. XII Tongue is midline with normal movements and no atrophy noted. Motor Function Movement No abnormalities noted Bulk No abnormalities noted Tone No abnormalities noted Moves RUE and RLE, tries to withdraw to pain in LUE and LLE Sensory Light Touch REYNOLD Noxious Stimuli Symmetric and intact bilaterally Labs: Recent Labs Component Name 10/30/22 0017 10/29/22 0010 10/27/22202810/23/22 0129 10/22/22 0153 WBC 17.9* 21.3* 21.1* - - RBC 2.53* 2.54* 2.52* - - HGB 7.6* 7.8* 7.6* - - HCT 24.3* 24.4* 24.2* - - PLT - - - - 199 - = values in this interval not displayed. Recent Labs Component Name 10/30/22 0017 10/29/22 0010 10/28/22 0125 NA 141 138 138 CL 107 106 106 CO2 25 24 26 BUN 11 9 9 CREATININE 0.61 0.54* 0.54* CALCIUM 8.8 8.8 8.6 No results for input(s): MG in the last 31460 hours. Recent Labs Component Name 10/30/22 0017 10/29/22 0010 10/28/22 0125 PHOS 5.1 4.8 3.9 Recent Labs Component Name 10/30/22 1659 10/30/22 0839 10/30/22 0237 10/29/22 1004 10/29/22 0214 10/28/22 0920 10/28/22 0125 PT - - 13.6 - 13.2 - 13.6 INR - - 1.0 - 1.0 - 1.0 PTT 175.2* 96.2* 77.7* - 60.3* - 81.6* - = values in this interval not displayed. No results for input(s): A1C in the last 55674 hours. Recent Labs Component Name 10/20/22 0302 06/15/22 0757 CHOL 173 204* HDL 42 37* LDLCALC 91 117* TRIG 201* 251* Recent Labs Component Name 06/15/22 0757 TSH 1.873 No results for input(s): CKMB, CKTOTAL, CKMB, TROPONINI, BNP in the last [address] ANGIO BRAIN NECK STROKE Result Date: 10/19/2022 PROCEDURE: CT ANGIO BRAIN NECK STROKE, DATE/TIME OF EXAM: 10/19/2022 8:16 AM, LOCATION [facility] INDICATION: Code Stroke ADDITIONAL CLINICAL INFORMATION: Ordering Provider Reason For Exam: Technologist Note: Additional: EXAMINATION: 1. Computed tomographic (CT) angiography of the head with contrast 2. CT angiography of the neck with contrast TECHNIQUE: CT angiography of the headand neck was obtained after the uneventful administration [...] a concurrent noncontrasted head CT for detailed intracranialfindings including findings suggesting an acute right MCA [...] artery. A small early M2 segment is patent . There is reconstitution of some distal right MCA branches. The left MCA is patent. The posterior cerebral arteries are patent. The distal vertebral arteries are patent. The basilar artery is patentpatent. 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 IMPRESSION: 1. [...] Lonnie Rae MD on 10/19/2022 8:[address] BRAIN - Stroke Result Date: 10/19/2022 PROCEDURE: CT BRAIN STROKE, DATE/TIME OF EXAM: 10/19/2022 8:04 AM, LOCATION [facility] INDICATION: Code Stroke ADDITIONAL CLINICAL INFORMATION: Ordering [...] of scott-white matter differentiation in the right frontotemporallobes and the right insula, concerning for an acute infarct. There is suggestion of a hyperdense rig ht MCA likely represent acute thrombus (series 5 image 25). No acute intracranial hemorrhage or intra- or extra-axial fluid collections are identified. The ventricles are of normal size, shape, and morphology. The basal cisterns are patent. No mass effect or midline shift is seen. The scott-white mat ter differentiation is normal. The visualized portions of [...] Lonnie Rae MD on 10/19/2022 8:15 AM Right middle cerebral artery stroke (CMS/HCC) (POA: Unknown) Acute cerebrovascular accident (CVA) due to embolism of right middle cerebral artery (CMS/HCC) (POA: Yes) Nihss score 9 (POA: Yes) Received intravenous tissue plasminogen activator (tPA) in emergency department (POA: Yes) GERD (gastroesophageal reflux disease) (POA: Yes) Hemianopsia (POA: Yes) Weakness (POA: Yes) Left-sided sensory deficit present (POA: Yes) Gaze palsy (POA: Yes) Migraine (POA: Unknown) Hypertension (POA: Unknown) Assessment ??Consuelo Darby is a 41 year old female who presented on 10/19 with Right MCA syndrome s/p TNK. CTA 1 M1 occlusion. S/P mechanical thrombectomy with R M1 recanalization and TICI2b. CT 10/20/22 with edema and mild shift. S/P decompressive right hemicraniectomy. Echo showed a mobile aortic valve vege tation. MRI brain with scattered cortical R hemisphere infarcts with petechiae. ?? Stroke Type: Ischemic Stroke Mechanism: ESUS ?? Plan Neurological ?? R M1 ischemic stroke; active - s/p TICI2b revascularization, TNK - s/p decompressive hemicrani on 10/20 for malignant MCA - HbA1C: 6.0, LDL: 91, Cardiac Enzymes; wnl - q1h vitals and neurological checks - atorvastatin 80 mg Core Measures TNK administration: yes Anti-thrombotic: holding while on AC Statin: atorvastatin 80mg DVT prophylaxis: heparin gtt Swallow Evaluation: pending PT/OT Evaluation: pending Smoking cessation: N/A Migraine - verapamil 40 TID GENESIS - cont home amitriptyline Cardiovascular ? 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 CT C/A/P/ ordered. - dentist evaled teeth, no concern - Follow blood cultures. If negative at 48 h will start heparin gtt - CT cardiac concerning more for vegetation R illiac and common femoral artery occlusion - Vascular surgery to perform intervention on Sunday ?? HTN: - home metop Blood Pressure Goals: SBP <160, map >70 Respiratory ? #AHRF - Extubated - Aspiration precautions - Elevate head of bed - Maintain oxygen saturation > 92% - Monitor for respiratory distress Gastrointestinal ? No acute issues - NPO until passes swallow. TF - PEG tube tomorrow Renal/Electrolytes ? No acute issues ?? - Monitor intake and output - Replete electrolytes as needed Hematology ? No acute issues ?? - Transfuse for hemoglobin < 7.0 g/dL Endocrine ? Vit D deficiency - Vit D 2,000 U daily Infectious Disease ? Concern for vegetation on left coronary cusp ??Leukocytosis - ID consult. See details above Musculoskeletal ? No acute issues Disposition ? - PT/OT pending ?? Individual Modifiable Risk Factors Hypertension: no Hyperlipidemia: no Diabetes: no Atrial Fibrillation: no Tobacco: no Vickie Muller PGY-2 Neurology resident Associated attestation - Jim Walter MD - 11/09/2022 10:22 AM CDT NEUROVASCULAR SERVICE ATTESTATION I saw and examined the patient with the Resident. I have verified all details of the Resident's note and agree with the Resident's documentation. Date of Service: 10/30/2022 Jim Walter MD * Heena Cottrell PA-C - 10/30/2022 6:18 PM CDT Cardiac Surgery Plan of Care Patient status, recent diagnostic studies and imaging reviewed with Dr. Anne. Dr Anne saw patient bedside with team and discussed plan with family, both and mother in room. Patient still with sedation on board from vascular surgery today. Pathology was sent despite R thrombus thought mini iatrogenic. Plan to follow up to determine if thrombus from iatrogenic versus less likely embolization from AV mass. Would advise repeat SARAH within next 72 hours to determine size of mass post heparin and abx. Patient still high surgical risk given recent stroke but risk still posed with AV massstill present pending repeat SARAH. Patient last week shook head no to wanting cardiac surgery, however would re-engage once SARAH is completed. Family is agreeable to SARAH repeat. Continue abx and heparin until SARAH completed. Heena Cottrell PA-C 10/30/2022 6:26 PM * Edgardo Suarez RN - 10/30/2022 3:35 PM CDT Rec'd pt from OR on ICU bed after getting report. Wakes up to stimulus. Follows commands, drowsy. SR to monitor. Respirations unlabored. Skin glue intact to R Groin. Dopplerable pulses to R pedals. A-Line intact/zeroed. HOB elevated. * Rachna Huntley DO - 10/30/2022 2:09 PM CDT Vascular Surgery Update: R common femoral thrombectomy and patch angioplasty completed. PT and AT signals present at conclusion of case. Bedrest remainder of today Q2 hour neurovascular checks Heparin to resume at 6PM * Jerry Leigh SLP - 10/30/2022 1:30 PM CDT [facility] Department of Physical Medicine & Rehabilitation Progress Note Patient: Consuelo Darby [facility] Record Number: [id number] Date of : 1980 Age: [age] year old 10/30/22 1300 Therapy on Hold Therapy on Hold Surgery;Chart Reviewed;New Order Required for Therapy Jerry Valle M.A., CCC-SIGNALING PROJECT ENGINEER Speech Language Pathologist [id number] * Ronda Crawley OT - 10/30/2022 1:14 PM CDT [facility] Department of Physical Medicine & Rehabilitation Progress Note Patient: Consuelo Darby [facility] Record Number: [id number] Date of : 1980 Age: [age] year old 10/30/22 1300 Therapy on Hold Therapy on Hold Surgery;Chart Reviewed;New Order Required for Therapy * Fariha Rosales MD - 10/30/2022 11:27 AM CDT Images from the original note were not included. Neurocritical Care Progress Note Consuelo Darby Age: [age] year old Date of : 1980 Date of Admission: 10/19/2022 Hospital Day: 11 Subjective History of Present Illness Consuelo Darby is a 41yo M who developed acute onset L sided weakness, L-sided sensory deficits, and dysarthria. L sided weakness resolved in route and dysarthria improved in route. On arrival patient noted to R gaze plasy, L hemainopsia, mild dysarthria, and extinction. NIHSS: 7. Patient was givenTNK and code IVR was activated. TICI2b revascularization of the R MCA M1 occlusion. 10/19: Cardene drip for maintaining SBP <140 post MT. 10/20: Taken for hemicrani with nsg. Intubated 10/21: Off levo, prop and fent. On Precedex. Tolerating PSV. 10/22: CTH showed increased edema but no MLS. ICPs wnl. Tolerating PSV well. 10/23: aortic valve mobile vegetation identified on SARAH. BCX ordered. Held off on heparin due to bleeding risk and awaiting blood cultures. ICPm removed. On PSV. 10/24: Extubated to 4L NC. ID consulted. Started empiric abx vanc rocephin. MRI with acute subacute small infarcts in L MCA territory 10/25: started heparin drip with aPTT goals of 60-80. CT CAP: no masses or infections, occlusion of the R EIA + proximal EXTRUDING PRESS ADJUSTER 10/26: reached goal aptt overnight. Neuro exam stable. CTH stable, no bleed. Puentes placed (straight caths painful) 10/27: No acute concerns. Extra workup per ID sent. 10/28: Rash over R flank, given benadryl and hydrocortisone cream 10/29: No acute events overnight. Remained stable hemodynamically and neurologically. Discussed PEG placement with at bedside today who is in agreement. GI consulted Interval History: No acute events overnight. Going to OR today, with vascular surgery for occlusion of R EIA and proximal EXTRUDING PRESS ADJUSTER Objective BP 139/74 Pulse 80 Temp 98.1 ??F (36.7 ??C) (Oral) Resp 18 Ht 1.626 m (5' 4 ) Wt 95.3 kg (210 lb) SpO2 100% Temp (30hrs) Max:99 ??F (37.2 ??C) Body mass index is 36.05 kg/m??. Exam - Neurologic Communicates with thumbs up to answer yes and two fingers answer no. Pupils reactive bilaterally Cough and gag present Opens eyes to verbal stimuli Moves RUE/RLE spont Follows commands on RUE/RLE LUE/LLE spontaneous foot movement and finger movement noted. Did not follow commands on left side. Con - afebrile Heent - carla on right side of head, soft scalp and MCA IRMA pulse present. S/p DHC Neck - no masses, trachea midline.NGT in place CV - no chest wall tenderness, tachycardia present, no MGR. Regular rhythm. Normal S1 and S2 Pulm - normal respiratory effort Abd - soft, NTND, bowel sounds present Pulses - BL dorsalis pedis present, weaker on right side but 2+ cap refill Labs: Reviewed. Imaging: Reviewed Hospital Problems on Admission: Right middle cerebral artery stroke (CMS/HCC) (POA: Unknown) Acute cerebrovascular accident (CVA) due to embolism of right middle cerebral artery (CMS/HCC) (POA: Yes) Nihss score 9 (POA: Yes) Received intravenous tissue plasminogen activator (tPA) in emergency department (POA: Yes) GERD (gastroesophageal reflux disease) (POA: Yes) Hemianopsia (POA: Yes) Weakness (POA: Yes) Left-sided sensory deficit present (POA: Yes) Gaze palsy (POA: Yes) Migraine (POA: Unknown) Hypertension (POA: Unknown) Assessment Consuelo Darby is a 41 year old female presenting with R gaze preference, L hemianopsia, L arm and leg hemiparesis, and L extinction. CTA with RMCA M1 occlsuion. S/P TNK and MT with TICI 2B recanalization. Admitted to neuroICU for post MT and post TNK monitoring. S/P DHC on 10/20 and remained intubated after procedure. Extubated 10/24 Found to have mobile mass on aortic valve on SARAH. Differentials include infective endocarditis, non-infective endocarditis and fibroelastoma Found to have occlusion of the R EIA + proximal EXTRUDING PRESS ADJUSTER likely iatrogenic Plan Neurological R MCA M1 occlusion s/p MT with TICI 2B recanalization S/P TNK administration. 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 Marquez in 10-14 days for wound check and staple removal. - Neurological checks q1hr - Pupillometer checks q1hr with recorded NPIs q1hr - ASA 81 held while on heparin gtt - Lipitor 80g daily - Head of bed > 30?? Hx Migraines - On Amitriptyline 50 mg BID and Verapamil 120mg daily at home. Hold amitriptyline. Cardiovascular HR 75-133, BP Min: 95/52 Max: 174/91 Hx of Hypertension - On Metoprolol 25 mg BID at home, continued. Endocarditis, infective vs non-infective vs fibroelastoma - Mobile mass on aortic valve seen on SARAH - UDS negative on admission, denies IV drug use - ID on board. Blood cultures obtained. Blood cultures have been negative. However, will continue 4weeks of antibiotics. - Fungal workup negative - Rheumatology was consulted to evaluate for non-infective endocarditis. All workup negative for rheumatological causes, no evidence of Antiphospholipid syndrome - CTS consulted for possible removal of vegetation. However, not a candidate at this time. - 10/25 started heparin drip. aptt goal 60-80, no boluses. Will follow up with vascular surgery, when they think we can re-start heparin drip - CT head for a change in exam. - Hold heparin gtt on 10/31 morning for PEG placement - SBP goal < 160 No PRNs ordered at this time. Nursing staff told to call MD if consistently elevated blood pressures. Respiratory AHRF- resolved - Intubated after hemicrani on 10/20. Extubated 10/24, to ME - Bronchial hygiene q4h, vest and if able to cough will switch to aerobika - Aspiration precautions - Elevate head of bed 30-45 degrees - Frequent suctioning, no NT suctioning while on heparin - Maintain oxygen saturation > 92% Renal/Electrolytes Intake/Output Summary (Last 24 hours) at 10/30/2022 1127 Last data filed at 10/30/2022 1121 Gross per 24 hour Intake 4116.54 ml Output 3000 ml Net 1116.54 ml Urinary retention - continue tamsulosin - requiring frequent straight caths, extremely painful. Thus puentes placed 10/26 - UA normal Electrolyte derangements - Replete electrolytes as needed Infectious Disease Temp (24hrs), Av.4 ??F (36.9 ??C), Min:98.1 ??F (36.7 ??C), Max:99 ??F (37.2 ??C) Leukocytosis - Blood cultures negative - on empiric abx vanc and rocephin SOT 10/25 -ID consulted, recommended labs ordered. - Will continue antibiotics for minimum of 4 weeks - Monitor for fevers - Ramirez culture if febrile Gastrointestinal Hx GERD - Lansoprozole 30 mg ordered. - Diet: Goal TF Vital 55cc/hr, FWF 288fcn3g - GI ppx: Lansoprozole - Last BM: 10/29 - BM regimen: senna and miralax - GI consult for PEG placement. Will follow up Endocrine Patient was taking oral contraceptive home medication. - A1c 6.0 - Accuchecks Hematology Recent Labs Component Name 10/30/22 0017 10/27/22202810/27/22 0054 WBC 17.9* - 19.5* HGB 7.6* - 8.0* HCT 24.3* - 24.6* PLTCOUNT 586* - 519* PLATELET - - Occasional* - = values in this interval not displayed. #Occlusion of the R EIA + proximal EXTRUDING PRESS ADJUSTER likely iatrogenic - vascular surgery; OR today for right femoral cutdown, thrombectomy, angiogram with possible intervention, possible vein harvest. - DP pulses present DVT ppx: SCDs/ heparin gtt Hypercoaguable workup per stroke team. Musculoskeletal No active issues Disposition - PT/OT pending Feeds/Fluids: Tube Feeds. Paused right now Analgesia: tylenol Sedation: none Thromboprophylaxis: scd, heparin gtt HOB: HOB >30 degrees Ulcer Ppx: Lansozprozole 30 Glucose: wnl BR: senna and miralax Indwelling lines: 2 PIVs, NGT Family: updated at bedside Fariha Rosales MD Neurology Resident. PGY-3 [facility]. * Edgardo Suarez RN - 10/30/2022 10:53 AM CDT HOB elevated, Neuro checks, NPO for procedure, doppler RLE pedals. * Edgardo Suarez RN - 10/30/2022 9:50 AM CDT Report given to SACK DEPARTMENT SUPERVISOR. Pt trans to OR with RN and OR personnel. On monitor. Arrived in PACU. * Sosa Degroot MD - 10/30/2022 8:48 AM CDT Images from the original note were not included. 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 She is s/p IV TNK, MT with TICI 2b recanalization on nd R decompressive hemicrani on 10/20. MRI brain with scattered cortical R hemisphere infarct and HI1 in stroke bed Left AV cusp vegetation found on SARAH c/f fibroelastoma vs marantic vegetation vs IE. Infectious work-up negative to date and AC started. Stroke in young work-up completed and stroke mechanism is cardioembolic. 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 Recent Labs Component Name 10/30/22 0017 10/29/22 0010 10/28/22 0125 06/15/22 0757 12/09/18 0812 07/25/18205503/01/16 0817 SODIUM - - - - 138 135* 141 POTASSIUM 4.0 4.1 3.5 - 3.8 3.8 3.6 CHLORIDE - - - - 102 103 110* CO2 25 24 26 - 24 21* 21* BUN 11 9 9 - 10 7 9 CREATININE 0.61 0.54* 0.54* - 0.82 0.93 0.60 EGFR >90 >90 >90 - >60 >60 >60 GLUCOSE 134* 110 134* - 120* 105 83 CALCIUM 8.8 8.8 8.6 - 9.4 9.2 8.1* - = values in this interval not displayed. Sosa Degroot MD, PhD Vascular and Interventional Neurology Fellow * JohanConsuelo cervantes - 10/30/2022 7:47 AM CDT Images from the original note were not included. Neurocritical Care Progress Note Consuelo Darby Age: [age] year old Date of : 1980 Date of Admission: 10/19/2022 Hospital Day: 11 Subjective History of Present Illness Consuelo Darby is a 41 year old female who developed acute L sided weakness, L sided sensory deficits, and dysarthria. L sided weakness resolved in route and dysarthria improved in route. On arrival,R gaze palsy and L hemianopsia. NIHSS:7. Pt was given TNK. TICI2b revascularization of R MCA M1 occlusion. ICU Timeline: Consuelo Darby is a 41 year old female who developed acute L sided weakness, L sided sensory deficits, and dysarthria. L sided weakness resolved in route and dysarthria improved in route. On arrival,R gaze palsy and L hemianopsia. NIHSS:7. Pt was given TNK. TICI2b revascularization of R MCA M1 occlusion. Interval History: 10/23 - LEONCIO and ICP monitor removed 10/23 - SARAH showed 6x7 independently mobile mass on left coronary cusp. CT cardio angio on 10/24 favored vegetation, rather than fibrosed hemangioma. 10/24 - Extubated 10/24 - Started on vanc and ceftriaxone 10/25 - Started on heparin (PTT goal of 60-80) 10/26 - Reached PTT goal, puentes catheter placed 10/28 - Rash over R flank, benadryl and hydrocortisone cream 10/30 - In OR with vascular surgery for occlusion of R EIA and proximal EXTRUDING PRESS ADJUSTER Objective BP 129/61 Pulse 78 Temp 98.4 ??F (36.9 ??C) (Axillary) Resp 17 Ht 1.626 m (5' 4 ) Wt 95.3kg (210 lb) SpO2 99% Temp (30hrs) Max:99 ??F (37.2 ??C) Body mass index is 36.05 kg/m??. Exam - General Con - NAD, afebrile Heent - L scalp surgical site w/ carla, soft, pupils 3 mm bilaterally Neck - no masses, trachea midline CV - RRR, no chest wall tenderness Pulm - O2 sat 97-99 on RA Abd - soft, lower abdomen hematoma from femoral site is improving Exam - Neurologic Surgical site of hemicraniectomy is clean, dry, intact, soft to palpation Pupils 3 mm and reactive bilaterally Able to open eyes Able to move RUE and RLE spontaneously Able to move LLE spontaneously, unable to move on command Gait Deferred Labs: Lab Results-Last 24 Hours Procedure Component Value Units Date/Time VANCOMYCIN LEVEL TROUGH [[id number]] Order Status: Sent Specimen: Blood PTT [facility] [[id number]] (Abnormal) Collected: 10/30/22236 Order Status: Completed Specimen: Blood Updated: 10/30/22325 APTT 77.7 Seconds Comment: Suggested therapeutic range for full dose I.V. unfractionated heparin therapy for venous thromboembolism is 71 to 109 seconds. PT-INR [facility] [[id number]] (Normal) Collected: 10/30/22236 Order Status: Completed Specimen: Blood Updated: 10/30/22 0326 PT 13.6 Seconds INR 1.0 Comment: The suggested therapeutic range for standard coumadin (warfarin) therapy is an INR of 2.0-3.0. For high-risk patients (Mechanical Mitral Valve Prosthesis, etc.), the suggested prophylactic therapeutic range is an INR of 2.5-3.5. PTT [facility] [[id number]] Order Status: Sent Specimen: Blood DIFFERENTIAL MANUAL [[id number]] (Abnormal) Collected: 10/30/2216 Order Status: Completed Specimen: Blood Updated: 10/30/22126 WBC (corrected for NRBC) 17.9 10??3/uL Total Cell Count 100 Neutrophils Absolute Manual 11.46 10??3/uL Comment: (BANDS+SEGS) x WBC = NEUT # (ANC) Lymphocyte Absolute Manual 4.83 10??3/uL Monocytes Absolute Manual 0.90 10??3/uL Basophil Absolute Manual 0.18 10??3/uL Band % Manual 3 % Neutrophil % Manual 61 % Lymphocyte % Manual 27 % Monocytes % Manual 5 % Basophils % Manual 1 % Metamyelocyte % Manual 1 % Myelocytes % Manual 2 % nRBC Manual 1 /100 WBC Platelet Estimate Increased Anisocytosis Occasional Macrocytosis Few Polychromasia Few [place] Bodies Rare Ovalocytes Rare Eduardo Cells Occasional Smudge Cells Rare Comment Platelet Platelet clumpled on the smear but appear increased. HCG BETA BLOOD QUANTITATIVE [[id number]] Collected: 10/30/2216 Order Status: Completed Specimen: Blood Updated: 10/30/22 011 Beta-hCG Total Quantitative <3 mIU/mL Comment: HCG Numeric Result Interpretation: Non- Females: < 5 mIU/mL Post-Menopausal Females: < 7 mIU/mL This assay is cleared for use in the early detection of only. It is not approved for any other uses such as tumor marker screening, tumor marker monitoring, etc. and should not be used for any other purposes. PHOSPHORUS BLOOD [[id number]] (Normal) Collected: 10/30/2216 Order Status: Completed Specimen: Blood Updated: 10/30/22 010 Phosphorus 5.1 mg/dL MAGNESIUM BLOOD [[id number]] (Normal) Collected: 10/30/2216 Order Status: Completed Specimen: Blood Updated: 10/30/22 010 Magnesium 2.1 mg/dL BASIC METABOLIC PANEL (CALCIUM TOTAL) [[id number]] (Abnormal) Collected: 10/30/2216 Order Status: Completed Specimen: Blood Updated: 10/30/22 010 BUN 11 mg/dL Creatinine 0.61 mg/dL Sodium 141 mmol/L Potassium 4.0 mmol/L Chloride 107 mmol/L CO2 25 mmol/L Glucose 134 mg/dL Calcium 8.8 mg/dL Anion Gap 13 BUN/Creatinine Ratio 18 Osmolality Calculated 293 mOsm/kg eGFR by CKD-EPI >90 mL/min/1.73 m2 CBC W AUTO DIFFERENTIAL [[id number]] (Abnormal) Collected: 10/30/2216 Order Status: Completed Specimen: Blood Updated: 10/30/22 0045 WBC 17.9 10??3/uL Comment: The WBC count is corrected by the instrument for nRBC's RBC 2.53 10??6/uL Hemoglobin 7.6 g/dL Hematocrit 24.3 % MCV 96.0 fL MCH 30.0 pg MCHC 31.3 g/dL RDW-SD 47.9 fL RDW-CV 13.8 % Platelet Count 586 10??3/uL MPV 10.4 fL nRBC Absolute 0.18 10??3/uL nRBC Auto 1.0 /100 WBC HCG URINE QUALITATIVE [[id number]] Collected: 10/30/2220 Order Status: Canceled Specimen: Urine Updated: 10/30/2226 MYCOPLASMA PNEUMONIAE AB IGM [[id number]] Collected: 10/27/22 1158 Order Status: Completed Specimen: Blood Updated: 10/30/2223 Mycoplasma Antibody IgM 0.09 U/L Comment: INTERPRETIVE INFORMATION: Mycoplasma pneumoniae Ab, IgM 0.76 U/L or less .......... Negative: No clinically significant amount of M. pneumoniae IgM antibody detected. 0.77 - 0.95 U/L ........... Low Positive: M. pneumoniae- specific IgM presumptively detected. Collection of a follow-up sample in 1-2 weeks is recommended to assure reactivity. 0.96 U/L or greater ....... Positive: Highly significant amount of M. pneumoniae- specific IgM antibody detected. However, low levels of IgM antibodies may occasionally persist for more than 12 months post-infection. Performed By: [facility] [address] [place] [id number] Microfilm Mounter: Boo Bond MD, PhD CLIA Number: [id number] MYCOPLASMA PNEUMONIAE AB IGG [[id number]] Collected: 10/27/221157 Order Status: Completed Specimen: Blood Updated: 10/30/22 0024 Mycoplasma Antibody IgG 0.05 U/L Comment: INTERPRETIVE INFORMATION: Mycoplasma pneumoniae Ab, IgG 0.09 U/L or less ............ Negative 0.10 - 0.32 U/L ............. Equivocal 0.33 U/L or greater ......... Positive INTERPRETIVE DATA: [...] other is below 0.20 U/L. Performed By: [facility] [address] [place] [id number] Microfilm Mounter: Boo Bond MD, PhD CLIA Number: [id number] BARTONELLA HENSELAE ANTIBODY IGM [[id number]] Collected: 10/27/221157 Order Status: Completed Specimen: Blood Updated: 10/29/222132 Bartonella henselae Antibody IgM < 1:16 Comment: INTERPRETIVE INFORMATION: Bartonella henselae Antibody, IgM Less than 1:16 ...... Negative: No significant level of Bartonella henselae IgM antibody detected. 1:16 or greater ..... Positive: Presence of IgM antibody to Bartonella henselae detected, suggestive of current or recent infection. The presence of IgM antibodies suggest recent infection, low levels of IgM antibodies may occasionally persist for more than 12 months post infection. This test was developed and its performance characteristics determined by [facility]. It has not been cleared or approved by the [place] Food and Drug Administration. This test was performed in a CLIA certified laboratory and is intended for clinical purposes. Performed By: [facility] [address] [place] [id number] Microfilm Mounter: Boo Bond MD, PhD CLIA Number: [id number] BARTONELLA HENSELAE ANTIBODY IGG [[id number]] Collected: 10/27/221157 Order Status: Completed Specimen: Blood Updated: 10/29/222132 Bartonella henselae Antibody IgG <1:64 Comment: INTERPRETIVE INFORMATION: Bartonella henselae Ab, IgG Less than 1:64 ....... Negative: No significant level of Bartonella henselae IgG antibody detected. 1:64 - 1:128 ......... Equivocal: Questionable presence of Bartonella henselae IgG antibody detected. Repeat testing in 10-14 days may be helpful. 1:256 or greater ..... Positive: Presence of IgG antibody to Bartonella henselae detected, suggestive of current or past infection. A low positive suggests [...] developed and its performance characteristics determined by [facility]. It has not been cleared or approved by the [place] Food and Drug Administration. This test was performed in a CLIA certified laboratory and is intended for clinical purposes. Performed By: [facility] [address] [place] [id number] Microfilm Mounter: Boo Bond MD, PhD CLIA Number: [id number] CHLAMYDIA ANTIBODY IGG/IGM PANEL [[id number]] Collected: 10/27/221157 Order Status: Completed Specimen: Blood Updated: 10/29/222131 C Pneumoniae Antibody IgG Titer <1:64 Chlamydia Pneumoniae Antibody IgM Titer <1:20 Chlamydia trachomatis Antibody IgM Titer <1:20 Chlamydia psittacI Antibody IgM Titer <1:20 Chlamydia trachomatis Antibody IgG Titer <1:64 Chlamydia psittacI Antibody IgG Titer <1:64 Comment: INTERPRETIVE INFORMATION: C. psittaci IgG Titer [...] developed and its performance characteristics determined by [facility]. It has not been cleared or approved by the [place] Food and Drug Administration. This test was performed in a CLIA certified laboratory and is intended for clinical purposes. Performed By: [facility] [address] [place] [id number] Microfilm Mounter: Boo Bond MD, PhD CLIA Number: [id number] PTT [facility] [[id number]] (Abnormal) Collected: 10/29/222001 Order Status: Completed Specimen: Blood Updated: 10/29/22 2041 APTT 70.7 Seconds Comment: Suggested therapeutic range for full dose I.V. unfractionated heparin therapy for venous thromboembolism is 71 to 109 seconds. PTT [facility] [[id number]] (Abnormal) Collected: 10/29/22 1541 Order Status: Completed Specimen: Blood Updated: 10/29/22 1628 APTT 64.4 Seconds Comment: Suggested therapeutic range for full dose I.V. unfractionated heparin therapy for venous thromboembolism is 71 to 109 seconds. PTT [facility] [[id number]] (Abnormal) Collected: 10/29/22 1004 Order Status: Completed Specimen: Blood Updated: 10/29/22 1038 APTT 60.5 Seconds Comment: Suggested therapeutic range for full dose I.V. unfractionated heparin therapy for venous thromboembolism is 71 to 109 seconds. Imaging: CT HEAD WO CONTRAST Result Date: 10/28/2022 IMPRESSION: 1. Evolving right MCA subacute infarct status post decompressive craniectomy. Grossly unchanged right frontotemporal subdural hemorrhage. Grossly unchanged gyriform hyperdensity in the infarcted area may represent subarachnoid hemorrhage. No midline shift. Unchanged mildly dilated ventricles may represent mild hydrocephalus. 2. Unchanged small focus of hypoattenuation in the left frontal lobe likely represents additional subacute infarct. The report is dictated by Kayla Stevenson MD (resident services coordinator) 1 I, Lonnie Rae MD have personally reviewed and interpreted this examination/study. > Interpreting Provider: Lonnie Rae MD on 10/28/2022 9:[address] HEAD WO CONTRAST Result Date: 10/27/2022 IMPRESSION: 1. Redemonstration of evolving right MCA subacute infarct, status post right decompressive craniectomy. The extra-axial hematoma underlying the craniectomy site and subarachnoid hemorrhage in the right cerebral sulci are grossly unchanged. Mass effect on the right lateral ventricle is unchanged. No significant midline shift. 2. Small focus of likely a subacute infarct in the left frontal lobe is unchanged. > Interpreting Provider: oLnnie Rae MD on 10/27/2022 12:[address] HEAD WO CONTRAST Result Date: 10/26/2022 IMPRESSION: 1. Redemonstration of evolving large right MCA territory acute to subacute infarct without definite evidence of hemorrhagic transformation. Unchanged minimal leftward midline shift of about 2 mm at the level of foramen of Monro and effacement of the left lateral ventricle. 2. Redemonstration of postsurgical changes from right-sided decompressive hemicraniectomy, unchanged compared to prior study. These results were discussed with stroke resident Dr Mendez by Dr. Miranda Bowen at8:05 AM on 10/26/2022 with read back confirmation and closed-loop communication. The report is dictated by Miranda Bowen MD (resident services coordinator) Oriana Ornelas MD have personally reviewed and interpreted this examination/study. > Interpreting Provider: Oriana Suarez MD on 38:[address] CHEST ABDOMEN PELVIS W CONT Result Date: 10/25/2022 Impression: 1.Occlusion of the right distal external [...] verification. > Dictated by Clarisa Cantrell MD (resident services coordinator). IAlexx have personally reviewed and interpreted this examination/study. > Interpreting Provider: Alexx Lopez on 10/25/2022 4:[address] HEAD WO CONTRAST Result Date: 10/25/2022 IMPRESSION: Redemonstrated postoperative changes consistent with right calvarial hemicraniectomy. Fluid collection overlying the lateral right cerebral hemisphere within the craniectomy defect containing some recent blood products. The overall size of this fluid collection is less than on previous study. In addition, there is less air/gas within this defect. Evolving large recent right cerebral hemisphere infarct with mass effect and approximately 2 mm of midline shift right to left. There appears to be slightly less mass effect and midline shift on today's study. Continued follow-up is recommended. Small recent cortical infarct in the lateral left frontal lobe as well as small recent infarc t in left martínez radiata which appears similar to previous study. Clinical correlation recommended.The report is dictated by Miranda Bowen MD (resident services coordinator) Joni Ornelas MD have personally reviewed and interpreted this examination/study. > Interpreting Provider: Joni Fabian MD on 10/25/2022 2:[address] CARDIAC ANGIO STRUCT MORPH Result Date: 10/25/2022 Impression: 1. 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 2. Patent coronary vessels within the limitation of the motion artifact given the elevated heart during this exam > Interpreting Provider: Pepe Gonzalez MD on 10/25/2022 12:03 AM MRI BRAIN WWO CONTRAST Result Date: 10/24/2022 IMPRESSION: 1.Redemonstration of postoperative changes of a right hemicraniectomy with expected postsurgical changes as outlined above. 2.Redemonstration of evolving large right MCA territory infarction with extensive cytotoxic edema and mild external herniation of the brain through the craniectomydefect. Persistent local mass effect on the right cerebral hemisphere, effacement of the right lateral ventricle, and approximately 3-4 mm [id number] midline shift, grossly similar to the prior. 3.Mild dilation of the left lateral ventricle may represent subtle left ventricular entrapment, overall grossly similar to prior. 4.Additional multiple foci of abnormal diffusion within the left frontotemporal lobes with associated T2 FLAIR hyperintensity representing additional small acute to subacute infarcts, likely of cardioembolic etiology. Findings communicated to Dr. Mohr by Dr. Major at 1138 hours on 10/24/2022 with readback comprehension and verification. Report dictated by Tim Major MD (resident services coordinator). Jasper Ornelas MD have personally reviewed and interpreted this examination/study. > Interpreting Provider: Jasper Sifuentes MD on 10/24/2022 1:[address] HEAD WO CONTRAST Result Date: 10/23/2022 IMPRESSION: 1.Redemonstration of postsurgical changes of decompressive craniectomy and evolving right middle cerebral artery territory infarct. 2.No hemorrhagic transformation. 3.Extensive cytotoxic edema and mass effect with approximately 2 mm midline shift, [place] similar or slightly improved from prior. 4.Stable right intracranial pressure monitor. The report is dictated by Miranda Bowen MD(resident services coordinator) Jasper Ornelas MD have personally reviewed and interpreted this examination/study. > Interpreting Provider: Jasper Sifuentes MD on 10/23/2022 9:[address] HEAD WO CONTRAST Result Date: 10/22/2022 IMPRESSION: 1.Redemonstration of postsurgical changes of decompressive right hemicraniectomy for evolving right middle cerebral artery territory infarct. There is significant edema and mass effect with approximately 4 mm of midline shift, unchanged from prior. No evidence of new acute intracranial hemorrhage. > Interpreting Provider: Lonnie Rae MD on 10/22/2022 3:[address] HEAD WO CONTRAST Result Date: 10/22/2022 IMPRESSION: 1.Stable appearance of postsurgical changes of decompressive right hemicraniectomy for evolving right middle cerebral artery territory infarct. There is significant edema and mass effect with approximately 4 mm of midline shift, unchanged from prior. No evidence of new acute intracranial hemorrhage. Report dictated by Lorenzo Horta MD (nursing resident). Lonnie Ornelas MD have personally reviewed and interpreted this examination/study. > Interpreting Provider: Lonnie Rae MD on 10/22/2022 3:[address] HEAD WO CONTRAST Result Date: 10/20/2022 IMPRESSION: Interval postsurgical changes of decompressive right hemicraniectomy with ICP monitor and subdural drain in place. 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 > Dictated by Bassam Jovel M.D. (nursing resident) Gonzalez Ornelas MD have personally reviewed and interpreted this examination/study. > Interpreting Provider: Gonzalez Velasco MD on 10/20/2022 11:[address] HEAD NON CONTRAST Result Date: 10/20/2022 IMPRESSION: Findings consistent with a large acute area of infarction in the right cerebral hemisphere in the distribution of the right middle cerebral artery with mass effect and approximately 4 mm of midline shift right to left. There is no definite hemorrhagic transformation. There is hyperdensity of the right middle cerebral artery likely representing thrombus. Clinical correlation and continued close interval follow-up are recommended. Results discussed with the stroke team physician, Dr. Stephanie Hester, on 20 October 2022 approximately 1225 hours. > Interpreting Provider: Joni Fabian MD on 10/20/2022 12:[address] ANGIO BRAIN NECK STROKE Result Date: 10/19/2022 IMPRESSION: 1. Occlusion of the distal M1 segment and 2 proximal M2 segments of the right middle cerebral artery. A small early M2 segment of the right MCA is patent. Some reconstitution of the distal branches. 2. No large arterial occlusions or significant stenoses identified in the head or neck. These findings were discussed in detail with the patient's care provider, Dr. Hestre by Dr. Rae via telephone at 8:19 AM on 10/19/2022 with readback comprehension and verification. > Interpreting Provider: Lonnie Rae MD on 10/19/2022 8:[address] BRAIN - Stroke Result Date: 10/19/2022 IMPRESSION: 1. No acute intracranial hemorrhage. 2. [...] Lonnie Rae MD on 10/19/2022 8:15 AM Hospital Problems on Admission: Right middle cerebral artery stroke (CMS/HCC) (POA: Unknown) Acute cerebrovascular accident (CVA) due to embolism of right middle cerebral artery (CMS/HCC) (POA: Yes) Nihss score 9 (POA: Yes) Received intravenous tissue plasminogen activator (tPA) in emergency department (POA: Yes) GERD (gastroesophageal reflux disease) (POA: Yes) Hemianopsia (POA: Yes) Weakness (POA: Yes) Left-sided sensory deficit present (POA: Yes) Gaze palsy (POA: Yes) Migraine (POA: Unknown) Hypertension (POA: Unknown) Assessment Consuelo Darby is a 41 year old female presenting for R sided gaze preference, L hemianopsia, L arm and L leg hemiparesis, and L extinction. CTA showed RMCA M1 occlusion. S/P TNK and MT with TICI 2B recanalization. S/P right decompressive hemicraniectomy. SARAH showed vegetation on aortic side of Lcoronary cusp. Possible differentials include infective endocarditis, nonbacterial thrombotic endocarditis, and fibroelastoma. To workup IE, blood cultures have been sent and preliminary 24 hour read is no growth. Continuing vanc and ceftriaxone empirically until final BC. Nonbacterial thrombotic endocarditis workup has beennegative. Plan Neurological EVD open at 0: drained ICP: CPP: # R MCA syndrome S/P TNK, mechanical thrombectomy, decompressive R hemicraniectomy Plan: - Neurological checks q1 - Pupillometer checks q1, recorded NPI - PTT checks q4 for goal of 60-80 - holding ASA - Lipitor 80 daily - Head of bed > 30?? - Avoid hypoglycemia, hyponatremia, and hyperthermia # Hx of migraines - continue verapamil 120 Cardiovascular Pulse Min: 75 Max: 147, BP Min: 95/52 Max: 174/91 # 6x7 mm independently mobile mass on aortic side of L coronary cusp - Cardio will continue to follow # Hx of HTN - continue metoprolol 25 BID - Blood pressure goal: SBP<160 Respiratory # difficulty bringing up secretions - bronchial hygiene orders for 4 times daily - O2 sat 97-100 on RA - continue Robitussin - Aspiration precautions - Elevate head of bed - Maintain oxygen saturation > 92% - Monitor for respiratory distress Renal/Electrolytes Intake/Output Summary (Last 24 hours) at 10/30/2022 0749 Last data filed at 10/30/2022 0600 Gross per 24 hour Intake 3169.95 ml Output 3200 ml Net -30.05 ml # urinary retention - continue tamsulosin - Puentes catheter placed 10/26 - Monitor intake and output - Replete electrolytes as needed Infectious Disease Temp (24hrs), Av.5 ??F (36.9 ??C), Min:98.1 ??F (36.7 ??C), Max:99 ??F (37.2 ??C) - ID is following for possible IE etiology - continue vanc and ceftriaxone - Monitor for fevers - Ramirez culture if febrile Gastrointestinal # Hx of GERD - 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 #Occlusion of the R EIA + proximal EXTRUDING PRESS ADJUSTER likely iatrogenic - vascular surgery following - DP pulses present - In OR today on 10/30??for right femoral cutdown, thrombectomy, angiogram with possible intervention, possible vein harvest. #Leukocytosis - continue to monitor, likely reactive to post sonya # Normocytic anemia - 7.6 from 8.0 yesterday - transfuse if Hgb < 7 Workup for hypercoagulabilities: SARAH negative, noncontributory protein C and S, lupus anticoag, cardiolipin, beta 2 glucoprotein antibodies Musculoskeletal No active issues Disposition - PT/OT pending Feeds/Fluids: NG tube, NPO Analgesia: tylenol Sedation: none Thromboprophylaxis: heparin HOB: >30 Ulcer Ppx: Prevacid BR: senna, miralax Indwelling lines: PIVx2, NG De-escalation: continue ICU Family: updated at bedside Cordero Bin Johan Medical Student, MS3 [facility]. Associated attestation - Julio Cesar Arriaza MD - 10/31/2022 11:58 AM CDT Neurocritical Care Attending I reviewed the history, laboratory tests, imaging, and other investigations. I also examined the patient independently. I agree with the resident's notes. We formulated the diagnosis and plan together. Please refer to this note for any revisions and additional details. Exam: BP 136/68 Pulse 88 Temp 98.2 ??F (36.8 ??C) (Axillary) Resp 19 Ht 1.626 m (5' 4 ) Wt 95.3kg (210 lb) SpO2 95% Patient Active Problem List: GERD (gastroesophageal reflux disease) Hemianopsia Weakness Left-sided sensory deficit present Gaze palsy Acute cerebrovascular accident (CVA) due to embolism of right middle cerebral artery (CMS/HCC) Nihss score 9 Received intravenous tissue plasminogen activator (tPA) in emergency department Migraine Hypertension Right middle cerebral artery stroke (CMS/HCC) Julio Cesar Arriaza MD 10/30/2022 Neurocritical Care The patient is at high risk for complications and morbidity or mortality. The patient is criticallyill with vital organ impairment or failure with high probability of imminent or life-threatening deterioration in the patient's condition. Total critical care time = 30 minutes The time involved in teaching, review of educational materials, and performance of separately billable procedures were not included in the time quoted here. Time spent with family meeting was included only if the patient was incapable of providing the necessary information or participating in decision-making of critical decisions regarding the direction of the patient's care. * Nnamdi Blue MD - 10/30/2022 5:19 AM CDT VASCULAR SURGERY PROGRESS NOTE ADMIT: 10/19/2022 7:53 AM LOS: 11 days 10 Days Post-Op 10/30/2022 HISTORY: This is a 41 year old female with a h/o R MCA stroke admitted 10/19 for R femoral access + suction thrombectomy + 8F angioseal closure; hemicraniectomy by NSGY 10/20, who presents as a consultfor occlusion identified on CT scan performed 10/25/22. She is currently in the neuro ICU for recovery and is also being evaluated by cardiac surgery for a aortic valve vegetation concerning for endocarditis vs fibroelastoma. Vascular surgery consulted for iatrogenic vascular injury of the external iliac artery. She currently does not have signs of acute limb ischemia and is motor/sensory intact with a multiphasic DP signal present. ?? Procedures: None Vascular Surgery History None SUBJECTIVE: No acute events overnight. Patient denies any new onset of pain in her lower extremities or groin. Patient is afebrile and hemodynamically stable. OBJECTIVE: Blood pressure 122/70, pulse 80, temperature 98.1 ??F (36.7 ??C), temperature source Axillary, resp. rate 18, height 1.626 m (5' 4 ), weight 95.3 kg (210 lb), last menstrual period 02/01/2022, SpO2 99 %, not currently . Temp: [98.1 ??F (36.7 ??C)-99 ??F (37.2 ??C)] 98.1 ??F (36.7 ??C) Pulse: [75-112] 80 Resp: [13-28] 18 BP: (112-139)/(58-87) 122/70 DIET: DIET TUBE FEEDING CONTINUOUS DIET NPO Except: SIPS WITH MEDS Ins/Outs: 10/29 0701 - 10/30 0700 In: 3170 [I.V.:2160] Out: 2800 [Urine:2800] Scheduled Medications: ??? 0.9% NaCl 3 mL Intracatheter q8h ??? 0.9% NaCl 3 mL Intracatheter q8h ??? atorvastatin 80 mg Enteral Tube AT BEDTIME ??? cefTRIAXone 2 g Intravenous q12h ??? guaiFENesin 10 mL Enteral Tube q12h ??? hydrocortisone Topical 4X/day ??? lansoprazole 30 mg Enteral Tube QDAY BEFORE BREAKFAST ??? loratadine 10 mg Enteral Tube QDAY ??? metoprolol tartrate IR 25 mg Enteral Tube q12h ??? polyethylene glycol 3350 17 g Enteral Tube QDAY ??? senna-docusate 1 tablet Enteral Tube QDAY ??? tamsulosin 0.4 mg Enteral Tube QDAY ??? vancomycin 1,750 mg Intravenous q8h ??? vancomycin (VANCOCIN) IV dose per pharmacy Does not apply DIRECTED ??? verapamil 40 mg Enteral Tube q8h ??? Vitamin D3 (cholecalciferol) 2,000 Units Enteral Tube QDAY Continuous Medications: dextrose 5 % and lactated ringers, , Last Rate: 75 mL/hr at 10/30/22 0018 heparin, 500-2,150 Units/hr, Last Rate: 1,650 Units/hr (10/29/22 1539) PRN Medications: 0.9% NaCl, 1-10 mL, PRN 0.9% NaCl, 3 mL, PRN acetaminophen, 500 mg, q4h PRN diphenhydrAMINE-zinc acetate, , PRN Physical Exam Gen: NAD ENT: Hemicraniectomy incision appears c/d/i. NG in place. Resp: NLR CV: RRR Abd: Soft, Non-distended and Non-peritoneal, no rebound/guarding MSK: Both lower extremities are WWP, motor/sensory intact. No pallor or cyanosis. Bruising to the Rgroin region Vasc: RLE: multiphasic DP signal; faint PT signal; unable to palpate femoral with faint signal identified LLE: palpable DP, PT pulses Neuro: follows commands RECENT LABS: Recent Labs Component Name 10/30/221610/29/22 0010 10/27/22202810/23/22 0129 10/22/22 0153 WBC 17.9* 21.3* 21.1* - - HGB 7.6* 7.8* 7.6* - - HCT 24.3* 24.4* 24.2* - - MCV 96.0 96.1 96.0 - - PLT - - - - 199 - = values in this interval not displayed. Recent Labs Component Name 10/30/22 0017 10/29/22 0010 10/28/22 0125 NA 141 138 138 POTASSIUM 4.0 4.1 3.5 CL 107 106 106 CO2 25 24 26 BUN 11 9 9 CREATININE 0.61 0.54* 0.54* CALCIUM 8.8 8.8 8.6 MAGNESIUM 2.1 2.0 2.0 PHOS 5.1 4.8 3.9 Recent Labs Component Name 10/19/22 0824 06/15/22 0757 12/09/18 0812 PROT 7.7 7.5 - ALB 3.5 3.6 - TBILI 0.1* 0.1* - AST 19 17 18 ALT 16 9 17 ALKPHOS 52 44 56 Recent Labs Component Name 10/30/22 0237 10/29/22200110/29/22 1541 10/29/22 1004 10/29/22 0214 10/28/22 0920 10/28/22 0125 INR 1.0 - - - 1.0 - 1.0 PTT 77.7* 70.7* 64.4* - 60.3* - 81.6* - = values in this interval not displayed. RECENT IMAGING: CT HEAD WO CONTRAST Result Date: 10/26/2022 IMPRESSION: 1. Redemonstration of evolving large right MCA territory acute to subacute infarct without definite evidence of hemorrhagic transformation. Unchanged minimal leftward midline shift of about 2 mm at the level of foramen of Monro and effacement of the left lateral ventricle. 2. Redemonstration of postsurgical changes from right-sided decompressive hemicraniectomy, unchanged compared to prior study. These results were discussed with stroke resident Dr Mendez by Dr. Miranda Bowen at8:05 AM on 10/26/2022 with read back confirmation and closed-loop communication. The report is dictated by Miranda Bowen MD (resident services coordinator) Oriana Ornelas MD have personally reviewed and interpreted this examination/study. > Interpreting Provider: Oriana Suarez MD on 38:[address] CHEST ABDOMEN PELVIS W CONT Result Date: 10/25/2022 Impression: 1.Occlusion of the right distal external [...] verification. > Dictated by Clarisa Cantrell MD (resident services coordinator). Alexx Ornelas have personally reviewed and interpreted this examination/study. > Interpreting Provider: Alexx Lopez on 10/25/2022 4:[address] HEAD WO CONTRAST Result Date: 10/25/2022 IMPRESSION: Redemonstrated postoperative changes consistent with right calvarial hemicraniectomy. Fluid collection overlying the lateral right cerebral hemisphere within the craniectomy defect containing some recent blood products. The overall size of this fluid collection is less than on previous study. In addition, there is less air/gas within this defect. Evolving large recent right cerebral hemisphere infarct with mass effect and approximately 2 mm of midline shift right to left. There appears to be slightly less mass effect and midline shift on today's study. Continued follow-up is recommended. Small recent cortical infarct in the lateral left frontal lobe as well as small recent infarc t in left martínez radiata which appears similar to previous study. Clinical correlation recommended.The report is dictated by Miranda Bowen MD (resident services coordinator) Joni Ornelas MD have personally reviewed and interpreted this examination/study. > Interpreting Provider: Joni Fabian MD on 10/25/2022 2:51 PM MRI BRAIN WWO CONTRAST Result Date: 10/24/2022 IMPRESSION: 1.Redemonstration of postoperative changes of a right hemicraniectomy with expected postsurgical changes as outlined above. 2.Redemonstration of evolving large right MCA territory infarction with extensive cytotoxic edema and mild external herniation of the brain through the craniectomydefect. Persistent local mass effect on the right cerebral hemisphere, effacement of the right lateral ventricle, and approximately 3-4 mm [id number] midline shift, grossly similar to the prior. 3.Mild dilation of the left lateral ventricle may represent subtle left ventricular entrapment, overall grossly similar to prior. 4.Additional multiple foci of abnormal diffusion within the left frontotemporal lobes with associated T2 FLAIR hyperintensity representing additional small acute to subacute infarcts, likely of cardioembolic etiology. Findings communicated to Dr. Mohr by Dr. Major at 1138 hours on 10/24/2022 with readback comprehension and verification. Report dictated by Tim Major MD (resident services coordinator). IJasper MD have personally reviewed and interpreted this examination/study. > Interpreting Provider: Jasper Sifuentes MD on 10/24/2022 1:59 PM ASSESSMENT: Consuelo Darby is a 41 year old female with a h/o recent R MCA M1 stroke s/p R femoral access for MCA thrombectomy and cerebral angiogram with 8F angioseal closure on 10/19 who presents as a consult for occlusion of the R EIA + proximal EXTRUDING PRESS ADJUSTER extending into the profunda with reconstitution identified on CT scan 10/25. Per review of angio images, stick appears to be high and correlates with location of occlusion - highly suspicious for iatrogenic vascular injury of the external iliac artery. She currently does not have signs of acute limb ischemia and is motor/sensory intact with a multiphasic DP signal present. Anticoagulation/Antiplatelet: Heparin gtt Antibiotics: rocephin and vancomycin Vascular Surgery High Risk Variables: None PLAN: - ABIs demonstrate severe occlusion of RLE - frequent neurovascular checks - q1h - please call vascular surgery immediately if any ischemic changes present in the RLE - OR today for right femoral cutdown, thrombectomy, angiogram with possible intervention, possible vein harvest. - Keep NPO sips w/ meds - Site marked - Pause Heparin gtt once patient rolls down to PACU - Rest of care per primary, please call with questions or concerns Patient will be staffed with attending, Dr. Clay. Note to be updated with any changes. Nnamdi Blue MD Vascular Surgery Resident PGY-1 10/29/2022 5:20 AM * Paris Mohr MD - 10/29/2022 4:01 PM CDT Images from the original note were not included. Neurocritical Care Progress Note Consuelo Darby Age: [age] year old Date of : 1980 Date of Admission: 10/19/2022 Hospital Day: 10 Subjective History of Present Illness Consuelo Darby is a 41yo M who developed acute onset L sided weakness, L-sided sensory deficits, and dysarthria. L sided weakness resolved in route and dysarthria improved in route. On arrival patient noted to L gaze plasy, L hemainopsia, mild dysarthria, and extinction. NIHSS: 7. Patient was givenTNK and code IVR was activated. TICI2b revascularization of the R MCA M1 occlusion. 10/19: Cardene drip for maintaining SBP <140 post MT. 10/20: Taken for hemicrani with nsg. Intubated 10/21: Off levo, prop and fent. On Precedex. Tolerating PSV. 10/22: CTH showed increased edema but no MLS. ICPs wnl. Tolerating PSV well. 10/23: aortic valve mobile vegetation identified on SARAH. BCX ordered. Held off on heparin due to bleeding risk and awaiting blood cultures. ICPm removed. On PSV. 10/24: Extubated to 4L NC. ID consulted. Started empiric abx vanc rocephin. MRI with acute subacute small infarcts in L MCA territory 10/25: started heparin drip with aPTT goals of 60-80. CT CAP: no masses or infections, occlusion of the R EIA + proximal EXTRUDING PRESS ADJUSTER 10/26: reached goal aptt overnight. Neuro exam stable. CTH stable, no bleed. Puentes placed (straight caths painful) 10/27: No acute concerns. Extra workup per ID sent. 10/28: Rash over R flank, given benadryl and hydrocortisone creme Interval History: No acute events overnight. Remained stable hemodynamically and neurologically. Discussed PEG placement with at bedside today who is in agreement. GI consulted Objective BP 127/68 Pulse 109 Temp 98.3 ??F (36.8 ??C) (Axillary) Resp 20 Ht 1.626 m (5' 4 ) Wt 95.3 kg (210 lb) SpO2 93% Temp (30hrs) Max:99.3 ??F (37.4 ??C) Body mass index is 36.05 kg/m??. Exam - Neurologic Communicates with thumbs up to answer yes and two fingers answer no. Pupils reactive bilaterally Cough and gag present Opens eyes to verbal stimuli Moves RUE/RLE spont Follows commands on RUE/RLE LUE/LLE spontaneous foot movement and finger movement noted. Did not follow commands on left side. Con - afebrile Heent - carla on right side of head, soft scalp and MCA IRMA pulse present. S/p DHC Neck - no masses, trachea midline.NGT in place CV - no chest wall tenderness, tachycardia present, no MGR. Regular rhythm. Normal S1 and S2 Pulm - normal respiratory effort Abd - soft, NTND, bowel sounds present Pulses - BL dorsalis pedis present, weaker on right side but 2+ cap refill Labs: Reviewed. Imaging: Reviewed Hospital Problems on Admission: Right middle cerebral artery stroke (CMS/HCC) (POA: Unknown) Acute cerebrovascular accident (CVA) due to embolism of right middle cerebral artery (CMS/HCC) (POA: Yes) Nihss score 9 (POA: Yes) Received intravenous tissue plasminogen activator (tPA) in emergency department (POA: Yes) GERD (gastroesophageal reflux disease) (POA: Yes) Hemianopsia (POA: Yes) Weakness (POA: Yes) Left-sided sensory deficit present (POA: Yes) Gaze palsy (POA: Yes) Migraine (POA: Unknown) Hypertension (POA: Unknown) Assessment Consuelo Darby is a 41 year old female presenting with R gaze preference, L hemianopsia, L arm and leg hemiparesis, and L extinction. CTA with RMCA M1 occlsuion. S/P TNK and MT with TICI 2B recanalization. Admitted to neuroICU for post MT and post TNK monitoring. S/P DHC on 10/20 and remained intubated after procedure. 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 Differentials include infective endocarditis, non-infective endocarditis and fibroelastoma Found to have occlusion of the R EIA + proximal EXTRUDING PRESS ADJUSTER likely iatrogenic Plan Neurological R MCA M1 occlusion s/p MT with TICI 2B recanalization S/P TNK administration. 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 Marquez in 10-14 days for wound check and staple removal. If patient is still inpatientat that time, please call NSGY for staple removal. - Neurological checks q1hr - Pupillometer checks q1hr with recorded NPIs q1hr - ASA 81 held while on heparin gtt - Lipitor 80g daily - Head of bed > 30?? Hx Migraines - On Amitriptyline 50 mg BID and Verapamil 120mg daily at home. Hold amitriptyline. Cardiovascular HR 75-133, BP Min: 95/52 Max: 174/91 Hx of Hypertension - On Metoprolol 25 mg BID at home, continued. Endocarditis, infective vs non-infective vs fibroelastoma - Mobile mass on aortic valve seen on SARAH - UDS negative on admission, denies IV drug use - ID on board. Blood cultures obtained. Preliminary bcx negative x3 - Continue empiric abx until final cultures result - F/u fungal workup - Rheumatology consulted to evaluate for non-infective endocarditis. All workup negative for rheumatological causes, no evidence of Antiphospholipid syndrome - CTS consulted for possible removal of vegetation. However, not a candidate at this time. - 10/25 started heparin drip. aptt goal 60-80, no boluses - CT head for a change in exam. - Hold heparin gtt on 10/31 morning for PEG placement - SBP goal < 160 No PRNs ordered at this time. Nursing staff told to call MD if consistently elevated blood pressures. Respiratory AHRF- resolved - Intubated after hemicrani on 10/20. Extubated 10/24, to ME - Bronchial hygiene q4h, vest and if able to cough will switch to aerobika - Aspiration precautions - Elevate head of bed 30-45 degrees - Frequent suctioning, no NT suctioning while on heparin - Maintain oxygen saturation > 92% Renal/Electrolytes Intake/Output Summary (Last 24 hours) at 10/29/2022 1601 Last data filed at 10/29/2022 0600 Gross per 24 hour Intake 280 ml Output 1675 ml Net -1395 ml Urinary retention - continue tamsulosin - requiring frequent straight caths, extremely painful. Thus puentes placed 10/26 - UA normal Electrolyte derangements - Replete electrolytes as needed Infectious Disease Temp (24hrs), Av.9 ??F (37.2 ??C), Min:98.3 ??F (36.8 ??C), Max:99.3 ??F (37.4 ??C) Leukocytosis - f/u blood cultures - f/u culture negative workup ordered as recommended by ID - on empiric abx vanc and rocephin SOT 10/25 -ID consulted, recommended labs ordered. Spoke to ID, okay to cont same abx - Monitor for fevers - Ramirez culture if febrile Gastrointestinal Hx GERD - Lansoprozole 30 mg ordered. - Diet: Goal TF Vital 55cc/hr, FWF [id number] - GI ppx: Lansoprozole - Last BM: 10/22 - BM regimen: senna and miralax Endocrine Patient was taking oral contraceptive home medication. - A1c 6.0 - Accuchecks Hematology Recent Labs Component Name 10/29/22 0010 10/27/22202810/27/22 0054 WBC 21.3* - 19.5* HGB 7.8* - 8.0* HCT 24.4* - 24.6* PLTCOUNT 584* - 519* PLATELET - - Occasional* - = values in this interval not displayed. #Occlusion of the R EIA + proximal EXTRUDING PRESS ADJUSTER likely iatrogenic - vascular surgery following - DP pulses present - Scheduled for OR on 10/30??for right femoral cutdown, thrombectomy, angiogram with possible intervention, possible vein harvest. - Make NPO sips with meds the midnight prior DVT ppx: SCDs/ heparin gtt Hypercoaguable workup per stroke team. Musculoskeletal No active issues Disposition - PT/OT pending Feeds/Fluids: Tube Feeds Analgesia: tylenol Sedation: none Thromboprophylaxis: scd, heparin gtt HOB: HOB >30 degrees Ulcer Ppx: Lansozprozole 30 Glucose: wnl BR: senna and miralax Indwelling lines: 2 PIVs, NGT De-escalation: pending final bcx results Family: updated at bedside Paris Mohr MD Neurology Resident. PGY-3 [facility]. Associated attestation - Shahbaz Bowen MD - 10/29/2022 7:38 PM CDT NEURO R MCA infarct s/p TNK and thrombectomy 10/23: ASA per stroke team. keep SBP <180, Cerebral edema on CT this AM stable, Vegetation on aortic side of aortic valve found on SARAH with workup and management below. No needs for osmolar therapyto control ICPs, but use hypertonic saline bolus for ICP > 22 for > 5mins. MRI brain to f/u on aneurysm on prior CTA. 10/24: No acute changes in neuro-exam, LEONCIO and drain removed by NSGY 10/23 in preparation for startingheparin. We will f/u NSGY regarding flap fullness. MRI today showing petechial hemorrhages in the Rinfarct distribution, Small areas of sub-acute infarct on the L side consistent with showering likely with initial event. 10/25: no changes in neuro-exam. CT head today with stable findings. Starting heparin today as belowwill watch closely for signs of intracranial bleeding. 10/26: Heparin initiated, no changes on neuroexam, but not therapeutic yet this AM 10/27:CT stable today, Neuro exam stable today, Heparin is near therapeutic 10/28: Heparin in therapeutic range today 10/29: Neuro exam stable no acute issues RESP Acute resp failure, intubated due to changes in mental status prior to hemicraniectomy. Now extubated 10/23: reports of thick secretions, no infiltrate on CXR no fever. Will monitor if not worsening will proceed to extubation if continuing to meet criteria tomorrow. 10/24: RSBI 70s today, following commands, takes deep breath when asked. Extubated to NC 10/25: Doing well extubated, minimal O2 requirement. Trial of vest therapy today along with NT suctioning, out of bed to neurochair. 10/26: Hold NT suctioning while on heparin, awaiting to get into neurochair until she has a helmet which is ordered, fio2 req is decreased 10/27: has a helmet today so will get into the neurochair. CXR looks clean with no complications with difficult secretion management. 10/28: improved secretion burden, OOBT to chair as kristen again today 10/29: f/u CXR today, may need vest therapy. CVS Aortic vegetation Arterial thrombus 10/23: Vegetation discovered differential includes bacterial vegetation, auto- immune thrombus, or fibroelastoma, no signs of valve dysfunction, will send blood cultures. Cardiac CT to see if further information can be elucidated. f/u with rheum re further workup. 10/24: awaiting read on cardiac CT, holding on starting heparin per stroke team 10/25: Incidentally clot found in the R EXTRUDING PRESS ADJUSTER, non-occlusive, with good pulses peripherally. 10/26: no acute changes, stroke team may get vascular surgery involved due to clot found near puncture site yesterday 10/27: Good pulses present in RLE. Vascular following, may take to OR on Sunday per notes. 10/28: No changes in LE pulses, still plans for possible OR on Sunday 10/29: No changes in LE pulses, OR tomorrow, no change plans with vegetation management. Overall considerations in considering a pump case would be stroke team clearance for tolerating a high dose bolus heparinization (350-400units/kg) and HD lability during cardiac surgery RENAL/ Urinary Retention 10/23: c/w bladder scan and straight cath 10/24: some spontaneous urination overnight (incontinence) but having to be straight cath'd this AM 10/25: Switch to straight cathing for 250ml as opposed to 500mls today 10/26: continued requirement for straight cathing. Puentes placed due to urethral pain and irritation 10/27: Given rising WBC and recent hx of retention, will f/u UA to check for infection 10/28: c/w puentes, UA clean 10/29: good UOP, c/w current fluids. ENDO -monitor for stress Hyperglycemia GI Nutrition at risk 10/23: TF paused for SARAH procedure briefly. No reports of intolerance. Last BM on 10/22 on a bowel regimen. Will pause for a couple hrs prior to extubation. Had a brief discussion with mother and on high likelihood of needing a PEG for nutritional support 10/24: c/w TF will pause temporarily if extubating today 10/25: Doing well from an airway perspective, will begin titration back to goal 10/26:TF and flushes at goal, had a bowel movement today, will continue with current regimen 10/27: will continue with current regimen 10/28: had 3 BM yesterday, may need to taper back regimen, will observe 10/29: holding regimen today. GI consult for PEG placement HEME Anemia 10/23: Will monitor for signs/sites of bleeding (craniectomy site/groin access site), non so far. 10/24: Hgb stable from yesterday, no external signs of bleeding 10/25: Hgb stable today. No bleeding 10/26: No signs of bleeding on heparin initiation 10/27: Hgb level stable 10/28: Hgb slightly down, no obv sites of bleeding, may be secondary to frequent blood draws 10/29: Crossmatch units for OR tomorrow Anticoagulation for possible non bacterial endocarditis 10/23: starting heparin has risk of hemorrhagic conversion after her large CVA. After discussion stroke service will hold on starting AC until BCX return. 10/24: After multi-disciplinary discussion holding on starting heparin at this time to give cx more time. 10/25: starting heparin today for goal ptt of 60-80, will have gentle titration 10/26: Ptt slowly creeping towards range as we desire due to high risk for having a hemorrhagic conversion 10/27: Ptt hitting into range then dropping, if more escalation is needed will need to discuss if pthas some type of AT3 deficiency. 10/28: AT3 activity within range, heparin jumping into the therapeutic range. 10/29: Heparin stable with ptt in 60s ID WBC 10 on admission, then with what was likely Post procedure leukocytosis, now stable but elevatedwithout intervention. no fevers. 10/23: Send Blood cultures x2 10/24: Send Blood cultures x2 again. Stroke team consulting with ID to assist in decision to start abx 10/25: Started on abx (vanc/ceftriaxone) overnight as per ID recs. May be able to stop if all cx finalize to negative' 10/26: Bcx continue to be negative, additional serologies sent as per ID recs, 10/27: Rising WBC no fever. In the absence of us being able to find an infection this likely is pharmaceutical service representative of an inflammatory response from CVA + return of euvolemia. Continuing with ceftriaxone and vanc. 10/28: WBC continuing to rise, UA clean, CXR clean, BCX negative. Will f/u ID if there are any otherinfectious concerns or if abx need to be widened. 10/29 c/w current abx The present set of clinical problems have a high likelihood of sudden deterioration associated withsignificant morbidity and involve high complexity decision making to frequently assess, manipulate,and support vital systems function. Discontinuation of therapies, or advanced physiological and clinical monitoring, poses a significant threat of prolonged morbidity or mortality. Critical Care 30-74 minutes: 32 mins (Time involved in the performance of separately billable procedures, teaching, or reviewing educational material was not counted towards critical care time.) * Valdez Oshea RN - 10/29/2022 2:58 PM CDT Problem: ELOPEMENT/ABDUCTION Goal: Risk for elopement &/or abduction during hospitalization is minimized Outcome: Progressing Problem: Safety related to restraint use Goal: Absence of injury while restrained Outcome: Progressing Problem: Pain/Discomfort Goal: Patient uses pharmacological and non-pharmacological pain management strategies. Outcome: Progressing Goal: Patient verbalizes acceptable level of pain relief and ability to engage in desired activity. Outcome: Progressing Problem: Mobility Goal: Patient's mobility/activity will be maintained as optimum level for age, diagnosis and physical limitations Outcome: Progressing Goal: Continuum of care needs are further met through referral to outpatient services when appropriate. Outcome: Progressing Goal: Patient reports the ability to perform Activities of Daily Living. Outcome: Progressing Problem: Communication Impairment/Dysarthria Goal: Ability to express needs and understand communication Outcome: Progressing Problem: Nutrition Goal: Nutritional status is improving Outcome: Progressing Problem: Glycemic Control Goal: Clinical indication of glycemia balance is achieved Outcome: Progressing Problem: Knowledge Deficit,Education,Discharge Plan Goal: The patient/family will understand cerebrovascular disease and its symptoms, treatment and management Outcome: Progressing Problem: Oral Intake: Inadequate oral intake Goal: Total intake will meet estimated nutrient needs Outcome: Progressing Problem: Swallowing Goal: LTG - Patient will tolerate the least restrictive diet consistency to allow for safe consumption of daily meals Outcome: Progressing Problem: Transfers Goal: STG - Transfer from bed to chair Outcome: Progressing Problem: Risk for Violence: Self-Directed or Other Directed Description: Diagnosis: Risk for self-directed Violence or Risk for Directed Violence Risk Factors: Biochemical/neurologic imbalances, impulsivity, manic excitement, psychotic symptomatology, rage reaction, restlessness Possibly Evidenced By: agitated behaviors, delusional thinking, hallucinations, loud/threatening/profane speech, poor impulse control, provocative behaviors, verbal threats against others, verbal threats against self Goal: Patient will verbalize control of feelings. Outcome: Progressing Goal: Patient will respond to interventions when potential or actual loss of control occurs. Outcome: Progressing Goal: Patient will refrain from provoking others to physical harm. Outcome: Progressing Goal: Patient will display nonviolent behaviors toward others in the hospital, with the aid of medications and nursing interventions. Outcome: Progressing Goal: Patient will seek help when experiencing aggressive impulses. Outcome: Progressing Goal: Patient will refrain from verbal threats and loud, profrane language toward others. Outcome: Progressing Goal: Patient will be safe and free from injury. Outcome: Progressing * Vickie Muller MD - 10/29/2022 2:33 PM CDT Stroke Service Daily Progress Note Consuelo Darby Age: [age] year old Date of : 1980 Date of Admission: 10/19/2022 Hospital Day: 10 Subjective Consuelo Darby is a 41yo M hemiplegic migraine, GERD, GENESIS. who developed acute onset L sided weakness, L-sided sensory deficits, and dysarthria. L sided weakness resolved in route and dysarthria improved in route. On arrival patient noted to hae L gaze plasy, L hemainopsia, mild dysarthria, and extinction. NIHSS: 7. Patient was given TNK and code IVR was activated. TICI2b revascularization of theR MCA M1 occlusion. Admitted to ICU for post- thrombectomy monitoring. Repeat CTH showing edema in RMCA territory. On 10/20/22 patient taken for hemicraniectomy, post-op CTH showing stable midline shift. Initial hypercoag work up negative, repeat in [address], QDay CTH. NSGY following. CTH 10/22 showing large R MCA infarct, minimal midline. shift. Starting lovenox. -10/23- SARAH concerning for aortic cusp vegetations. [...] Bilateral pulses are present. Vascular surgery consult. ?? Interval History: WBC increasing, 21.3 today. BC final 10/23 no growth. Vascular intervention tomorrow. Objective Patient Vitals for the past 24 hrs: BP Temp Temp src Pulse Resp SpO2 10/29/22 0917 127/68 -- -- 109 -- -- 10/29/22 0700 129/73 -- -- 94 20 93 % 10/29/22 0600 133/70 -- -- 92 15 92 % 10/29/22 0500 131/66 -- -- 83 17 94 % 10/29/22 0400 136/76 98.3 ??F (36.8 ??C) Axillary 79 16 96 % 10/29/22 0300 131/68 -- -- 105 31 94 % 10/29/22 0200 133/73 -- -- 103 24 92 % 10/29/22 0100 131/69 -- -- 87 12 96 % 10/29/22 0000 123/73 99.3 ??F (37.4 ??C) Axillary 81 18 96 % 10/28/22 2300 120/76 -- -- 89 22 94 % 10/28/22 2200 114/70 -- -- 98 24 93 % 10/28/22 2100 130/68 -- -- 103 21 91 % 10/28/22 2000 143/66 99.3 ??F (37.4 ??C) Axillary 102 23 95 % 10/28/22 1900 140/69 -- -- 103 20 97 % 10/28/22 1800 143/81 98.5 ??F (36.9 ??C) Axillary 94 18 98 % 10/28/22 1700 126/83 -- -- (!) 121 22 94 % 10/28/22 1600 144/82 98.3 ??F (36.8 ??C) Axillary (!) 122 24 95 % 10/28/22 1500 149/85 -- -- 104 19 97 % Intake/Output Summary (Last 24 hours) at 10/29/2022 1437 Last data filed at 10/29/2022 0600 Gross per 24 hour Intake 280 ml Output 2275 ml Net -1995 ml Exam: Cortical Function Mental Status Awake, alert, follows commands Orientation REYNOLD Language Aphasia Visual Powell Intact bilaterally to confrontation Neglect No visual neglect noted, no tactile neglect noted Cranial Nerves II Pupils 3 mm and bilaterally reactive to light. Fundoscopic exam not performed. VIII Hearing is intact bilaterally to finger rub. III/IV/ Extraocular muscles intact. No diplopia, ptosis, nystagmus or convergence abnormalities noted. IX/X Palate elevated symmetrically without phonation abnormalities noted. V Facial sensation symmetric to light touch and intact bilaterally. Corneal reflex not examined. XIHead turning and shoulder shrug are intact. VII No facial palsy noted. XII Tongue is midline with normal movements and no atrophy noted. Motor Function Movement No abnormalities noted Bulk No abnormalities noted Tone No abnormalities noted Moves RUE and RLE, tries to withdraw to pain in LUE and LLE Sensory Light Touch REYNOLD Noxious Stimuli Symmetric and intact bilaterally Labs: Recent Labs Component Name 10/29/22 0010 10/27/229 10/27/22 0054 10/23/22 0129 10/22/22 0153 WBC 21.3* 21.1* 19.5* - - RBC 2.54* 2.52* 2.60* - - HGB 7.8* 7.6* 8.0* - - HCT 24.4* 24.2* 24.6* - - PLT - - - - 199 - = values in this interval not displayed. Recent Labs Component Name 10/29/22 0010 10/28/22 0125 10/27/22 0054 NA 138 138 138 CL 106 106 107 CO2 24 26 24 BUN 9 9 11 CREATININE 0.54* 0.54* 0.53* CALCIUM 8.8 8.6 8.4 No results for input(s): MG in the last 88474 hours. Recent Labs Component Name 10/29/22 0010 10/28/22 0125 10/27/22 0054 PHOS 4.8 3.9 3.5 Recent Labs Component Name 10/29/22 1004 10/29/22 0214 10/28/22 2100 10/28/22 0920 10/28/22 0125 10/27/22 1158 10/27/22 0608 PT - 13.2 - - 13.6 - 13.7 INR - 1.0 - - 1.0 - 1.1 PTT 60.5* 60.3* 62.1* - 81.6* - 58.6* - = values in this interval not displayed. No results for input(s): A1C in the last 17455 hours. Recent Labs Component Name 10/20/22 0302 06/15/22 075 CHOL 173 204* HDL 42 37* LDLCALC 91 117* TRIG 201* 251* Recent Labs Component Name 06/15/22 0757 TSH 1.873 No results for input(s): CKMB, CKTOTAL, CKMB, TROPONINI, BNP in the last [address] ANGIO BRAIN NECK STROKE Result Date: 10/19/2022 PROCEDURE: CT ANGIO BRAIN NECK STROKE, DATE/TIME OF EXAM: 10/19/2022 8:16 AM, LOCATION [facility] INDICATION: Code Stroke ADDITIONAL CLINICAL INFORMATION: Ordering Provider Reason For Exam: Technologist Note: Additional: EXAMINATION: 1. Computed tomographic (CT) angiography of the head with contrast 2. CT angiography of the neck with contrast TECHNIQUE: CT angiography of the headand neck was obtained after the uneventful administration [...] a concurrent noncontrasted head CT for detailed intracranialfindings including findings suggesting an acute right MCA [...] arteries are patent. The basilar artery is patentpatent. 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 IMPRESSION: 1. [...] Lonnie Rae MD on 10/19/2022 8:[address] BRAIN - Stroke Result Date: 10/19/2022 PROCEDURE: CT BRAIN STROKE, DATE/TIME OF EXAM: 10/19/2022 8:04 AM, LOCATION [facility] INDICATION: Code Stroke ADDITIONAL CLINICAL INFORMATION: Ordering [...] of scott-white matter differentiation in the right frontotemporallobes and the right insula, concerning for an acute infarct. There is suggestion of a hyperdense right MCA likely represent acute thrombus (series 5 image 25). No acute intracranial hemorrhage or intra- or extra-axial fluid collections are identified. The ventricles are of normal size, shape, and morphology. The basal cisterns are patent. No mass effect or midline shift is seen. The scott-white mat ter differentiation is normal. The visualized portions of [...] Lonnie Rae MD on 10/19/2022 8:15 AM Right middle cerebral artery stroke (CMS/HCC) (POA: Unknown) Acute cerebrovascular accident (CVA) due to embolism of right middle cerebral artery (CMS/HCC) (POA: Yes) Nihss score 9 (POA: Yes) Received intravenous tissue plasminogen activator (tPA) in emergency department (POA: Yes) GERD (gastroesophageal reflux disease) (POA: Yes) Hemianopsia (POA: Yes) Weakness (POA: Yes) Left-sided sensory deficit present (POA: Yes) Gaze palsy (POA: Yes) Migraine (POA: Unknown) Hypertension (POA: Unknown) Assessment ??Consuelo Darby is a 41 year old female who presented on 10/19 with Right MCA syndrome s/p TNK. CTA 1 M1 occlusion. S/P mechanical thrombectomy with R M1 recanalization and TICI2b. CT 10/20/22 with edema and mild shift. S/P decompressive right hemicraniectomy. Echo showed a mobile aortic valve vege tation. MRI brain with scattered cortical R hemisphere infarcts with petechiae. ?? Stroke Type: Ischemic Stroke Mechanism: ESUS ?? Plan Neurological ?? R M1 ischemic stroke; active - s/p TICI2b revascularization, TNK - s/p decompressive hemicrani on 10/20 for malignant MCA - HbA1C: 6.0, LDL: 91, Cardiac Enzymes; wnl - q1h vitals and neurological checks - atorvastatin 80 mg Core Measures TNK administration: yes Anti-thrombotic: holding while on AC Statin: atorvastatin 80mg DVT prophylaxis: heparin gtt Swallow Evaluation: pending PT/OT Evaluation: pending Smoking cessation: N/A Migraine - verapamil 40 TID GENESIS - cont home amitriptyline Cardiovascular ? 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 CT C/A/P/ ordered. - dentist evaled teeth, no concern - Follow blood cultures. If negative at 48 h will start heparin gtt - CT cardiac concerning more for vegetation R illiac and common femoral artery occlusion - Vascular surgery to perform intervention on Sunday ?? HTN: - home metop Blood Pressure Goals: SBP <160, map >70 Respiratory ? #AHRF - Extubated - Aspiration precautions - Elevate head of bed - Maintain oxygen saturation > 92% - Monitor for respiratory distress Gastrointestinal ? No acute issues - NPO until passes swallow. 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 No acute issues ?? - Monitor intake and output - Replete electrolytes as needed Hematology ? No acute issues ?? - Transfuse for hemoglobin < 7.0 g/dL Endocrine ? Vit D deficiency - Vit D 2,000 U daily Infectious Disease ? Concern for vegetation on left coronary cusp ??Leukocytosis - ID consult. See details above Musculoskeletal ? No acute issues Disposition ? - PT/OT pending ?? Individual Modifiable Risk Factors Hypertension: no Hyperlipidemia: no Diabetes: no Atrial Fibrillation: no Tobacco: no Vickie Muller PGY-2 Neurology resident Associated attestation - Jim Walter MD - 11/09/2022 10:22 AM CDT NEUROVASCULAR SERVICE ATTESTATION I saw and examined the patient with the Resident. I have verified all details of the Resident's note and agree with the Resident's documentation. Date of Service: 10/29/2022 Jim Walter MD * Kari Hamm COTA - 10/29/2022 1:[address] [facility] Occupational Therapy Splint Check Note Patient Name Consuelo Darby Date of 1980 Age [age] year old Type of Splint: LUE soft resting hand, LLE foot drop splint ?? Splint Issued by: Not applicable-follow up visit ?? Splint Check Completed: No issues noted. Skin intact and splint fitting appropriately after adjusted by therapist ?? Treatment Plan: Patient/Family education completed. and Will continue to monitor splint while patient in hospital. ?? 10/29/2022 * Karina Cottrell RN - 10/29/2022 6:40 AM CDT Problem: Communication Impairment/Dysarthria Goal: Ability to express needs and understand communication Outcome: Progressing Problem: Fall Risk Goal: Fall risk and fall related injury risk are minimized (interventions related to the fall risk can be found in the flowsheet documentation) Outcome: Completed Problem: Skin Integrity Goal: Skin integrity is maintained or improved Outcome: Completed Problem: Pain/Discomfort Goal: Patient exhibits reduced pain/discomfort as evidenced by pain scores Outcome: Completed Problem: Neurological Deficit Goal: Neurological status is stable or improving Outcome: Completed Problem: Hemodynamic Status/Cardiac Output Goal: Patient has stable vital signs and fluid balance Outcome: Completed Problem: Oxygenation/Respiratory Function Goal: Respiratory rate/effort will be within specified limits Outcome: Completed Problem: Aspiration Precautions Goal: Patient's risk of aspiration is minimized Outcome: Completed * Nnamdi Blue MD - 10/29/2022 6:16 AM CDT VASCULAR SURGERY PROGRESS NOTE ADMIT: 10/19/2022 7:53 AM LOS: 10 days 9 Days Post-Op 10/29/2022 HISTORY: This is a 41 year old female with a h/o R MCA stroke admitted 10/19 for R femoral access + suction thrombectomy + 8F angioseal closure; hemicraniectomy by NSGY 10/20, who presents as a consultfor occlusion identified on CT scan performed 10/25/22. She is currently in the neuro ICU for recovery and is also being evaluated by cardiac surgery for a aortic valve vegetation concerning for endocarditis vs fibroelastoma. Vascular surgery consulted for iatrogenic vascular injury of the external iliac artery. She currently does not have signs of acute limb ischemia and is motor/sensory intact with a multiphasic DP signal present. ?? Procedures: None Vascular Surgery History None SUBJECTIVE: No acute events overnight. Patient denies any new onset of pain in her lower extremities or groin. Patient is afebrile and hemodynamically stable. OBJECTIVE: Blood pressure 131/66, pulse 83, temperature 98.3 ??F (36.8 ??C), temperature source Axillary, resp. rate 17, height 1.626 m (5' 4 ), weight 95.3 kg (210 lb), last menstrual period 02/01/2022, SpO2 94 %, not currently . Temp: [98.2 ??F (36.8 ??C)-99.3 ??F (37.4 ??C)] 98.3 ??F (36.8 ??C) Pulse: [79-122] 83 Resp: [12-31] 17 BP: (114-149)/(52-85) 131/66 DIET: DIET NPO Except: NO EXCEPTIONS DIET TUBE FEEDING CONTINUOUS Ins/Outs: 10/28 0701 - 10/29 0700 In: 1038.1 [I.V.:558.1] Out: 3200 [Urine:3200] Scheduled Medications: ??? 0.9% NaCl 3 mL Intracatheter q8h ??? 0.9% NaCl 3 mL Intracatheter q8h ??? atorvastatin 80 mg Enteral Tube AT BEDTIME ??? cefTRIAXone 2 g Intravenous q12h ??? guaiFENesin 10 mL Enteral Tube q12h ??? hydrocortisone Topical 4X/day ??? lansoprazole 30 mg Enteral Tube QDAY BEFORE BREAKFAST ??? loratadine 10 mg Enteral Tube QDAY ??? metoprolol tartrate IR 25 mg Enteral Tube q12h ??? polyethylene glycol 3350 17 g Enteral Tube QDAY ??? senna-docusate 1 tablet Enteral Tube QDAY ??? tamsulosin 0.4 mg Enteral Tube QDAY ??? vancomycin 1,750 mg Intravenous q8h ??? vancomycin (VANCOCIN) IV dose per pharmacy Does not apply DIRECTED ??? verapamil 40 mg Enteral Tube q8h ??? Vitamin D3 (cholecalciferol) 2,000 Units Enteral Tube QDAY Continuous Medications: heparin, 500-2,150 Units/hr, Last Rate: 1,650 Units/hr (10/29/22 0013) PRN Medications: 0.9% NaCl, 1-10 mL, PRN 0.9% NaCl, 3 mL, PRN acetaminophen, 500 mg, q4h PRN dextrose IV for hypoglycemia, 12.5 g, PRN Or dextrose IV for hypoglycemia, 25 g, PRN diphenhydrAMINE-zinc acetate, , PRN glucagon, 1 mg, PRN glucose (Diabetic Use), , PRN glucose (Diabetic Use) gel, , PRN glucose chew tab, 16 g, PRN Physical Exam Gen: NAD ENT: Hemicraniectomy incision appears c/d/i. NG in place. Resp: NLR CV: RRR Abd: Soft, Non-distended and Non-peritoneal, no rebound/guarding MSK: Both lower extremities are WWP, motor/sensory intact. No pallor or cyanosis. Bruising to the Rgroin region Vasc: RLE: multiphasic DP signal; faint PT signal; unable to palpate femoral with faint signal identified LLE: palpable DP, PT pulses Neuro: follows commands RECENT LABS: Recent Labs Component Name 10/29/22 0010 10/27/22202810/27/22 0054 10/23/22 0129 10/22/22 0153 WBC 21.3* 21.1* 19.5* - - HGB 7.8* 7.6* 8.0* - - HCT 24.4* 24.2* 24.6* - - MCV 96.1 96.0 94.6 - - PLT - - - - 199 - = values in this interval not displayed. Recent Labs Component Name 10/29/22 0010 10/28/2212410/27/22 0054 NA 138 138 138 POTASSIUM 4.1 3.5 3.5 CL 106 106 107 CO2 24 26 24 BUN 9 9 11 CREATININE 0.54* 0.54* 0.53* CALCIUM 8.8 8.6 8.4 MAGNESIUM 2.0 2.0 2.0 PHOS 4.8 3.9 3.5 Recent Labs Component Name 10/19/22 0824 06/15/22 0757 12/09/18 0812 PROT 7.7 7.5 - ALB 3.5 3.6 - TBILI 0.1* 0.1* - AST 19 17 18 ALT 16 9 17 ALKPHOS 52 44 56 Recent Labs Component Name 10/29/22 0214 10/28/22 2100 10/28/22 1554 10/28/22 0920 10/28/22 0125 10/27/22 1158 10/27/22 0608 INR 1.0 - - - 1.0 - 1.1 PTT 60.3* 62.1* 63.4* - 81.6* - 58.6* - = values in this interval not displayed. RECENT IMAGING: CT HEAD WO CONTRAST Result Date: 10/26/2022 IMPRESSION: 1. Redemonstration of evolving large right MCA territory acute to subacute infarct without definite evidence of hemorrhagic transformation. Unchanged minimal leftward midline shift of about 2 mm at the level of foramen of Monro and effacement of the left lateral ventricle. 2. Redemonstration of postsurgical changes from right-sided decompressive hemicraniectomy, unchanged compared to prior study. These results were discussed with stroke resident Dr Mendez by Dr. Miranda Bowen at8:05 AM on 10/26/2022 with read back confirmation and closed-loop communication. The report is dictated by Miranda Bowen MD (resident services coordinator) Oriana Ornelas MD have personally reviewed and interpreted this examination/study. > Interpreting Provider: Oriana Suarez MD on 38:[address] CHEST ABDOMEN PELVIS W CONT Result Date: 10/25/2022 Impression: 1.Occlusion of the right distal external [...] verification. > Dictated by Clarisa Cantrell MD (resident services coordinator). Alexx Ornelas have personally reviewed and interpreted this examination/study. > Interpreting Provider: Alexx Lopez on 10/25/2022 4:[address] HEAD WO CONTRAST Result Date: 10/25/2022 IMPRESSION: Redemonstrated postoperative changes consistent with right calvarial hemicraniectomy. Fluid collection overlying the lateral right cerebral hemisphere within the craniectomy defect containing some recent blood products. The overall size of this fluid collection is less than on previous study. In addition, there is less air/gas within this defect. Evolving large recent right cerebral hemisphere infarct with mass effect and approximately 2 mm of midline shift right to left. There appears to be slightly less mass effect and midline shift on today's study. Continued follow-up is recommended. Small recent cortical infarct in the lateral left frontal lobe as well as small recent infarc t in left martínez radiata which appears similar to previous study. Clinical correlation recommended.The report is dictated by Miranda Bowen MD (resident services coordinator) Joni Ornelas MD have personally reviewed and interpreted this examination/study. > Interpreting Provider: Joni Fabian MD on 10/25/2022 2:51 PM MRI BRAIN WWO CONTRAST Result Date: 10/24/2022 IMPRESSION: 1.Redemonstration of postoperative changes of a right hemicraniectomy with expected postsurgical changes as outlined above. 2.Redemonstration of evolving large right MCA territory infarction with extensive cytotoxic edema and mild external herniation of the brain through the craniectomydefect. Persistent local mass effect on the right cerebral hemisphere, effacement of the right lateral ventricle, and approximately 3-4 mm [id number]-ok-[id number] midline shift, grossly similar to the prior. 3.Mild dilation of the left lateral ventricle may represent subtle left ventricular entrapment, overall grossly similar to prior. 4.Additional multiple foci of abnormal diffusion within the left frontotemporal lobes with associated T2 FLAIR hyperintensity representing additional small acute to subacute infarcts, likely of cardioembolic etiology. Findings communicated to Dr. Mohr by Dr. Major at 1138 hours on 10/24/2022 with readback comprehension and verification. Report dictated by Tim Major MD (resident services coordinator). I, Jasper Sifuentes MD have personally reviewed and interpreted this examination/study. > Interpreting Provider: Jaspre Sifuentes MD on 10/24/2022 1:59 PM ASSESSMENT: Consuelo Darby is a 41 year old female with a h/o recent R MCA M1 stroke s/p R femoral access for MCA thrombectomy and cerebral angiogram with 8F angioseal closure on 10/19 who presents as a consult for occlusion of the R EIA + proximal EXTRUDING PRESS ADJUSTER extending into the profunda with reconstitution identified on CT scan 10/25. Per review of angio images, stick appears to be high and correlates with location of occlusion - highly suspicious for iatrogenic vascular injury of the external iliac artery. She currently does not have signs of acute limb ischemia and is motor/sensory intact with a multiphasic DP signal present. Anticoagulation/Antiplatelet: Heparin gtt Antibiotics: rocephin and vancomycin Vascular Surgery High Risk Variables: None PLAN: - ABIs demonstrate severe occlusion of RLE - frequent neurovascular checks - q1h - please call vascular surgery immediately if any ischemic changes present in the RLE - Patient scheduled for OR on 10/30 for right femoral cutdown, thrombectomy, angiogram with possibleintervention, possible vein harvest. Please make NPO sips with meds the midnight prior. - Site to be marked day of - CHG bath the night prior - Continue Heparin gtt - Please hold heparin when patient rolls down to pre-op Patient will be staffed with attending, Dr. Jose. Note to be updated with any changes. Nnamdi Blue MD Vascular Surgery Resident PGY-1 10/29/2022 6:18 AM Associated attestation - Daniella Jose MD - 10/30/2022 7:14 AM CDT I have seen and examined the patient with the resident and I agree with the findings and plan of care as documented by the resident. Date of Service: 10/29/22 Daniella Jose MD * Kari Hamm COTA - 10/28/2022 3:[address] [facility] Occupational Therapy Splint Check Note Patient Name Consuelo Darby Date of 1980 Age [age] year old Type of Splint: LUE soft resting hand, LLE foot drop splint Splint Issued by: Not applicable-follow up visit Splint Check Completed: No issues noted. Skin intact and splint fitting appropriately Treatment Plan: Patient/Family education completed. and Will continue to monitor splint while patient in hospital. 10/28/2022 * Lucretia Barrett PharmD - 10/28/2022 3:15 PM CDT ACTIVE CONSULTS TO PHARMACY/DISEASE STATE MONITORING Pharmacy Consult: Vancomycin Management Subjective / Objective Consuelo Darby is a 41 year old female. Height: 5' 4 (162.6 cm) Wt 95.3 kg (210 lb) BMI 36.05 kg/m??. ASSESSMENT/PLAN Indication: endocarditis c/b septic emboli to FINE HAIRER Goal trough: 15-20 mcg/mL Assessment: ?? Day of treatment: 4 ?? ID consulted/following: yes ?? Current dosing regimen: 1500 mg Q8h ?? 10/28 Vanc trough: subtherapeutic ?? 16.5 mcg/mL (true trough = 13.4 mcg/mL) ??? Renal assessment: stable at baseline o Serum creatinine: 0.54 mg/dL o Estimated creatinine clearance: 156.6 mL/min o Estimated half-life ~4.5h Plan ??? Dosing: o Increase dose to 1750 mg Q8h ??? Monitoring: o Vanc trough level: 10/30 @1000 ??? End of treatment date: TBD Lucretia Barrett PharmD 10/28/2022 3:16 PM [facility] Vancomycin Guideline * Valdez Oshea RN - 10/28/2022 12:26 PM CDT Problem: ELOPEMENT/ABDUCTION Goal: Risk for elopement &/or abduction during hospitalization is minimized Outcome: Progressing Problem: Safety related to restraint use Goal: Absence of injury while restrained Outcome: Progressing Problem: Fall Risk Goal: Fall risk and fall related injury risk are minimized (interventions related to the fall risk can be found in the flowsheet documentation) Outcome: Progressing Problem: Skin Integrity Goal: Skin integrity is maintained or improved Outcome: Progressing Problem: Pain/Discomfort Goal: Patient exhibits reduced pain/discomfort as evidenced by pain scores Outcome: Progressing Goal: Patient uses pharmacological and non-pharmacological pain management strategies. Outcome: Progressing Goal: Patient verbalizes acceptable level of pain relief and ability to engage in desired activity. Outcome: Progressing Problem: Neurological Deficit Goal: Neurological status is stable or improving Outcome: Progressing Problem: Hemodynamic Status/Cardiac Output Goal: Patient has stable vital signs and fluid balance Outcome: Progressing Problem: Oxygenation/Respiratory Function Goal: Respiratory rate/effort will be within specified limits Outcome: Progressing Problem: Mobility Goal: Patient's mobility/activity will be maintained as optimum level for age, diagnosis and physical limitations Outcome: Progressing Goal: Continuum of care needs are further met through referral to outpatient services when appropriate. Outcome: Progressing Goal: Patient reports the ability to perform Activities of Daily Living. Outcome: Progressing Problem: Communication Impairment/Dysarthria Goal: Ability to express needs and understand communication Outcome: Progressing Problem: Nutrition Goal: Nutritional status is improving Outcome: Progressing Problem: Aspiration Precautions Goal: Patient's risk of aspiration is minimized Outcome: Progressing Problem: Glycemic Control Goal: Clinical indication of glycemia balance is achieved Outcome: Progressing Problem: Knowledge Deficit,Education,Discharge Plan Goal: The patient/family will understand cerebrovascular disease and its symptoms, treatment and management Outcome: Progressing Problem: Oral Intake: Inadequate oral intake Goal: Total intake will meet estimated nutrient needs Outcome: Progressing Problem: Swallowing Goal: LTG - Patient will tolerate the least restrictive diet consistency to allow for safe consumption of daily meals Outcome: Progressing Problem: Transfers Goal: STG - Transfer from bed to chair Outcome: Progressing Problem: Risk for Violence: Self-Directed or Other Directed Description: Diagnosis: Risk for self-directed Violence or Risk for Directed Violence Risk Factors: Biochemical/neurologic imbalances, impulsivity, manic excitement, psychotic symptomatology, rage reaction, restlessness Possibly Evidenced By: agitated behaviors, delusional thinking, hallucinations, loud/threatening/profane speech, poor impulse control, provocative behaviors, verbal threats against others, verbal threats against self Goal: Patient will verbalize control of feelings. Outcome: Progressing Goal: Patient will respond to interventions when potential or actual loss of control occurs. Outcome: Progressing Goal: Patient will refrain from provoking others to physical harm. Outcome: Progressing Goal: Patient will display nonviolent behaviors toward others in the hospital, with the aid of medications and nursing interventions. Outcome: Progressing Goal: Patient will seek help when experiencing aggressive impulses. Outcome: Progressing Goal: Patient will refrain from verbal threats and loud, profrane language toward others. Outcome: Progressing Goal: Patient will be safe and free from injury. Outcome: Progressing * Vickie Muller MD - 10/28/2022 11:49 AM CDT Stroke Service Daily Progress Note Consuelo Darby Age: [age] year old Date of : 1980 Date of Admission: 10/19/2022 Hospital Day: 9 Subjective Consuelo Darby is a 41yo M hemiplegic migraine, GERD, GENESIS. who developed acute onset L sided weakness, L-sided sensory deficits, and dysarthria. L sided weakness resolved in route and dysarthria improved in route. On arrival patient noted to janete Amy astorga, L hemainopsia, mild dysarthria, and extinction. NIHSS: 7. Patient was given TNK and code IVR was activated. TICI2b revascularization of theR MCA M1 occlusion. Admitted to ICU for post- thrombectomy monitoring. Repeat CTH showing edema in RMCA territory. On 10/20/22 patient taken for hemicraniectomy, post-op CTH showing stable midline shift. Initial hypercoag work up negative, repeat in [address], QDay CTH. NSGY following. CTH 10/22 showing large R MCA infarct, minimal midline. shift. Starting lovenox. -10/23- SARAH concerning for aortic cusp vegetations. [...] Bilateral pulses are present. Vascular surgery consult. ?? Interval History: WBC increasing, 21.1 today. BC preliminarily negative. CT head stable, will stop daily CT. Vascularintervention on Sunday. Objective Patient Vitals for the past 24 hrs: BP Temp Temp src Pulse Resp SpO2 10/28/22 0830 127/68 -- -- (!) 114 -- -- 10/28/22 0800 -- 98.9 ??F (37.2 ??C) Axillary -- -- -- 10/28/22 0700 141/52 -- -- 84 16 95 % 10/28/22 0600 135/90 -- -- 105 21 93 % 10/28/22 0400 145/76 98.5 ??F (36.9 ??C) Axillary 103 30 95 % 10/28/22 0300 136/71 -- -- 82 19 95 % 10/28/22 0200 139/81 -- -- 105 23 96 % 10/28/22 0100 133/73 -- -- 96 22 93 % 10/28/22 0000 121/82 98.3 ??F (36.8 ??C) Axillary 102 16 98 % 10/27/22 2300 118/60 -- -- 90 21 99 % 10/27/22 2200 136/80 -- -- 98 26 99 % 10/27/22 2129 -- -- -- -- 24 99 % 10/27/22 2100 142/91 -- -- (!) 110 (!) 32 100 % 10/27/22 2000 144/81 98.1 ??F (36.7 ??C) Oral 109 9 99 % 10/27/22 1900 139/77 -- -- (!) 118 (!) 38 99 % 10/27/22 1800 137/64 98.8 ??F (37.1 ??C) Oral 95 20 100 % 10/27/22 1700 126/87 -- -- (!) 116 24 100 % 10/27/22 1600 133/75 98.4 ??F (36.9 ??C) Oral (!) 116 11 99 % 10/27/22 1500 120/71 -- -- 109 23 99 % 10/27/22 1400 118/81 98.6 ??F (37 ??C) Oral (!) 111 22 95 % 10/27/22 1300 134/72 -- -- (!) 110 23 98 % 10/27/22 1200 115/81 98.2 ??F (36.8 ??C) Oral 98 19 96 % Intake/Output Summary (Last 24 hours) at 10/28/2022 1149 Last data filed at 10/28/2022 0600 Gross per 24 hour Intake 3167.32 ml Output 2150 ml Net 1017.32 ml Exam: Cortical Function Mental Status Awake, alert, follows commands Orientation REYNOLD Language Aphasia Visual Powell Intact bilaterally to confrontation Neglect No visual neglect noted, no tactile neglect noted Cranial Nerves II Pupils 3 mm and bilaterally reactive to light. Fundoscopic exam not performed. VIII Hearing is intact bilaterally to finger rub. III/IV/ Extraocular muscles intact. No diplopia, ptosis, nystagmus or convergence abnormalities noted. IX/X Palate elevated symmetrically without phonation abnormalities noted. V Facial sensation symmetric to light touch and intact bilaterally. Corneal reflex not examined. XIHead turning and shoulder shrug are intact. VII No facial palsy noted. XII Tongue is midline with normal movements and no atrophy noted. Motor Function Movement No abnormalities noted Bulk No abnormalities noted Tone No abnormalities noted Moves RUE and RLE, tries to withdraw to pain in LUE and LLE Sensory Light Touch REYNOLD Noxious Stimuli Symmetric and intact bilaterally Labs: Recent Labs Component Name 10/27/22202810/27/22 0054 10/26/22 0002 10/23/22 0129 10/22/22 0153 WBC 21.1* 19.5* 16.1* - - RBC 2.52* 2.60* 2.64* - - HGB 7.6* 8.0* 8.1* - - HCT 24.2* 24.6* 25.1* - - PLT - - - - 199 - = values in this interval not displayed. Recent Labs Component Name 10/28/22 01210/27/22 0054 10/26/22 0002 NA 138 138 139 CL 106 107 105 CO2 26 24 24 BUN 9 11 13 CREATININE 0.54* 0.53* 0.54* CALCIUM 8.6 8.4 8.4 No results for input(s): MG in the last 43951 hours. Recent Labs Component Name 10/28/22 0125 10/27/22 0054 10/26/22 0002 PHOS 3.9 3.5 3.5 Recent Labs Component Name 10/28/22 0920 10/28/22 0125 10/27/22 1855 10/27/22 1158 10/27/22 0608 10/26/22 0647 10/26/22 0426 PT - 13.6 - - 13.7 - 13.6 INR - 1.0 - - 1.1 - 1.0 PTT 72.8* 81.6* 96.4* - 58.6* - - - = values in this interval not displayed. No results for input(s): A1C in the last 41694 hours. Recent Labs Component Name 10/20/22 0302 06/15/22 0757 CHOL 173 204* HDL 42 37* LDLCALC 91 117* TRIG 201* 251* Recent Labs Component Name 06/15/22 0757 TSH 1.873 No results for input(s): CKMB, CKTOTAL, CKMB, TROPONINI, BNP in the last [address] ANGIO BRAIN NECK STROKE Result Date: 10/19/2022 PROCEDURE: CT ANGIO BRAIN NECK STROKE, DATE/TIME OF EXAM: 10/19/2022 8:16 AM, LOCATION [facility] INDICATION: Code Stroke ADDITIONAL CLINICAL INFORMATION: Ordering Provider Reason For Exam: Technologist Note: Additional: EXAMINATION: 1. Computed tomographic (CT) angiography of the head with contrast 2. CT angiography of the neck with contrast TECHNIQUE: CT angiography of the headand neck was obtained after the uneventful administration [...] a concurrent noncontrasted head CT for detailed intracranialfindings including findings suggesting an acute right MCA [...] arteries are patent. The basilar artery is patentpatent. 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 IMPRESSION: 1. [...] Lonnie Rae MD on 10/19/2022 8:[address] BRAIN - Stroke Result Date: 10/19/2022 PROCEDURE: CT BRAIN STROKE, DATE/TIME OF EXAM: 10/19/2022 8:04 AM, LOCATION [facility] INDICATION: Code Stroke ADDITIONAL CLINICAL INFORMATION: Ordering [...] of scott-white matter differentiation in the right frontotemporallobes and the right insula, concerning for an acute infarct. There is suggestion of a hyperdense right MCA likely represent acute thrombus (series 5 image 25). No acute intracranial hemorrhage or intra- or extra-axial fluid collections are identified. The ventricles are of normal size, shape, and morphology. The basal cisterns are patent. No mass effect or midline shift is seen. The scott-white mat ter differentiation is normal. The visualized portions of [...] Lonnie Rae MD on 10/19/2022 8:15 AM Right middle cerebral artery stroke (CMS/HCC) (POA: Unknown) Acute cerebrovascular accident (CVA) due to embolism of right middle cerebral artery (CMS/HCC) (POA: Yes) Nihss score 9 (POA: Yes) Received intravenous tissue plasminogen activator (tPA) in emergency department (POA: Yes) GERD (gastroesophageal reflux disease) (POA: Yes) Hemianopsia (POA: Yes) Weakness (POA: Yes) Left-sided sensory deficit present (POA: Yes) Gaze palsy (POA: Yes) Migraine (POA: Unknown) Hypertension (POA: Unknown) Assessment ??Consuelo Darby is a 41 year old female who presented on 10/19 with Right MCA syndrome s/p TNK. CTA 1 M1 occlusion. S/P mechanical thrombectomy with R M1 recanalization and TICI2b. CT 10/20/22 with edema and mild shift. S/P decompressive right hemicraniectomy. Echo showed a mobile aortic valve vege tation. MRI brain with scattered cortical R hemisphere infarcts with petechiae. ?? Stroke Type: Ischemic Stroke Mechanism: ESUS ?? Plan Neurological ?? R M1 ischemic stroke; active - s/p TICI2b revascularization, TNK - s/p decompressive hemicrani on 10/20 for malignant MCA - HbA1C: 6.0, LDL: 91, Cardiac Enzymes; wnl - q1h vitals and neurological checks - atorvastatin 80 mg Core Measures TNK administration: yes Anti-thrombotic: holding while on AC Statin: atorvastatin 80mg DVT prophylaxis: heparin gtt Swallow Evaluation: pending PT/OT Evaluation: pending Smoking cessation: N/A Migraine - verapamil 40 TID GENESIS - cont home amitriptyline Cardiovascular ? 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 CT C/A/P/ ordered. - dentist evaled teeth, no concern - Follow blood cultures. If negative at 48 h will start heparin gtt - CT cardiac concerning more for vegetation R illiac and common femoral artery occlusion - Vascular surgery to perform intervention on Sunday ?? HTN: - home metop Blood Pressure Goals: SBP <160, map >70 Respiratory ? #AHRF - Extubated - Aspiration precautions - Elevate head of bed - Maintain oxygen saturation > 92% - Monitor for respiratory distress Gastrointestinal ? No acute issues - NPO until passes swallow. 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 No acute issues ?? - Monitor intake and output - Replete electrolytes as needed Hematology ? No acute issues ?? - Transfuse for hemoglobin < 7.0 g/dL Endocrine ? Vit D deficiency - Vit D 2,000 U daily Infectious Disease ? Concern for vegetation on left coronary cusp ??Leukocytosis - ID consult. See details above Musculoskeletal ? No acute issues Disposition ? - PT/OT pending ?? Individual Modifiable Risk Factors Hypertension: no Hyperlipidemia: no Diabetes: no Atrial Fibrillation: no Tobacco: no Vickie Muller PGY-2 Neurology resident Associated attestation - Jim Walter MD - 11/09/2022 10:22 AM CDT NEUROVASCULAR SERVICE ATTESTATION I saw and examined the patient with the Resident. I have verified all details of the Resident's note and agree with the Resident's documentation. Date of Service: 10/28/2022 Jim Walter MD * Tim Marinelli MD - 10/28/2022 6:01 AM CDT Images from the original note were not included. Neurocritical Care Progress Note Consuelo Darby Age: [age] year old Date of : 1980 Date of Admission: 10/19/2022 Hospital Day: 9 Subjective History of Present Illness Consuelo Darby is a 41yo M who developed acute onset L sided weakness, L-sided sensory deficits, and dysarthria. L sided weakness resolved in route and dysarthria improved in route. On arrival patient noted to L gaze plasy, L hemainopsia, mild dysarthria, and extinction. NIHSS: 7. Patient was givenTNK and code IVR was activated. TICI2b revascularization of the R MCA M1 occlusion. 10/19: Cardene drip for maintaining SBP <140 post MT. 10/20: Taken for hemicrani with nsg. Intubated 10/21: Off levo, prop and fent. On Precedex. Tolerating PSV. 10/22: CTH showed increased edema but no MLS. ICPs wnl. Tolerating PSV well. 10/23: aortic valve mobile vegetation identified on SARAH. BCX ordered. Held off on heparin due to bleeding risk and awaiting blood cultures. ICPm removed. On PSV. 10/24: Extubated to 4L NC. ID consulted. Started empiric abx vanc rocephin. MRI with acute subacute small infarcts in L MCA territory 10/25: started heparin drip with aPTT goals of 60-80. CT CAP: no masses or infections, occlusion of the R EIA + proximal EXTRUDING PRESS ADJUSTER 10/26: reached goal aptt overnight. Neuro exam stable. CTH stable, no bleed. Puentes placed (straight caths painful) 10/27: No acute concerns. Extra workup per ID sent. Interval History: Rash over R flank, given benadryl and hydrocortisone creme. tmax: 98.1. SBP range 120-146. Last twoPTTs 96.4>81.6. Blood Clx continue to be negative. Repeat CT head on prelim read- unchanged. Objective BP 139/77 Pulse (!) 118 Temp 98.1 ??F (36.7 ??C) (Oral) Resp 24 Ht 1.626 m (5' 4 ) Wt 95.3 kg (210 lb) SpO2 99% Temp (30hrs) Max:98.8 ??F (37.1 ??C) Body mass index is 36.05 kg/m??. Exam - Neurologic On NC Communicates with thumbs up to answer yes and two fingers answer no. Pupils reactive bilaterally Cough and gag present Opens eyes to verbal stimuli Moves RUE/RLE spont Follows commands on RUE/RLE LUE/LLE spontaneous foot movement and finger movement noted. Did not follow commands on left side. Con - afebrile Heent - carla on right side of head, soft scalp and MCA IRMA pulse present. S/p DHC Neck - no masses, trachea midline.NGT in place CV - no chest wall tenderness, tachycardia present, no MGR. Regular rhythm. Normal S1 and S2 Pulm - normal respiratory effort Abd - soft, NTND, bowel sounds present Pulses - BL dorsalis pedis present, weaker on right side but 2+ cap refill Labs: Reviewed. Imaging: Reviewed Hospital Problems on Admission: Right middle cerebral artery stroke (CMS/HCC) (POA: Unknown) Acute cerebrovascular accident (CVA) due to embolism of right middle cerebral artery (CMS/HCC) (POA: Yes) Nihss score 9 (POA: Yes) Received intravenous tissue plasminogen activator (tPA) in emergency department (POA: Yes) GERD (gastroesophageal reflux disease) (POA: Yes) Hemianopsia (POA: Yes) Weakness (POA: Yes) Left-sided sensory deficit present (POA: Yes) Gaze palsy (POA: Yes) Migraine (POA: Unknown) Hypertension (POA: Unknown) Assessment Consuelo Darby is a 41 year old female presenting with R gaze preference, L hemianopsia, L arm and leg hemiparesis, and L extinction. CTA with RMCA M1 occlsuion. S/P TNK and MT with TICI 2B recanalization. Admitted to neuroICU for post MT and post TNK monitoring. S/P DHC on 10/20 and remained intubated after procedure. 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 Differentials include infective endocarditis, non-infective endocarditis and fibroelastoma Found to have occlusion of the R EIA + proximal EXTRUDING PRESS ADJUSTER likely iatrogenic Plan Neurological R MCA M1 occlusion s/p MT with TICI 2B recanalization S/P TNK administration. 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 Marquez in 10-14 days for wound check and staple removal. If patient is still inpatientat that time, please call NS for staple removal. - Neurological checks q1hr - Pupillometer checks q1hr with recorded NPIs q1hr - ASA 81 held while on heparin gtt - Lipitor 80g daily - Head of bed > 30?? Hx Migraines - On Amitriptyline 50 mg BID and Verapamil 120mg daily at home. Hold amitriptyline. Cardiovascular HR 75-133, BP Min: 95/52 Max: 174/91 Hx of Hypertension - On Metoprolol 25 mg BID at home, continued. Endocarditis, infective vs non-infective vs fibroelastoma - Mobile mass on aortic valve seen on SARAH - UDS negative on admission, denies IV drug use - ID on board. Blood cultures obtained. Preliminary bcx negative x3 - Continue empiric abx until final cultures result - F/u fungal workup - Rheumatology consulted to evaluate for non-infective endocarditis. All workup negative for rheumatological causes, no evidence of Antiphospholipid syndrome - CTS consulted for possible removal of vegetation. However, not a candidate at this time. - 10/25 started heparin drip. aptt goal 60-80, no boluses - CT head for a change in exam. - SBP goal < 160 No PRNs ordered at this time. Nursing staff told to call MD if consistently elevated blood pressures. Respiratory AHRF- resolved - Intubated after hemicrani on 10/20. Extubated 10/24, to ME - Bronchial hygiene q4h, vest and if able to cough will switch to aerobika - Aspiration precautions - Elevate head of bed 30-45 degrees - Frequent suctioning, no NT suctioning while on heparin - Maintain oxygen saturation > 92% Renal/Electrolytes Intake/Output Summary (Last 24 hours) at 10/28/2022 0606 Last data filed at 10/27/2022 2200 Gross per 24 hour Intake 200 ml Output 1800 ml Net -1600 ml Urinary retention - continue tamsulosin - requiring frequent straight caths, extremely painful. Thus puentes placed 10/26 - UA normal Electrolyte derangements - Replete electrolytes as needed Infectious Disease Temp (24hrs), Av.4 ??F (36.9 ??C), Min:98.1 ??F (36.7 ??C), Max:98.8 ??F (37.1 ??C) Leukocytosis - f/u blood cultures - f/u culture negative workup ordered as recommended by ID - on empiric abx vanc and rocephin SOT 10/25 -ID consulted, recommended labs ordered. Spoke to ID, okay to cont same abx - Monitor for fevers - Ramirez culture if febrile Gastrointestinal Hx GERD - Lansoprozole 30 mg ordered. - Diet: Goal TF Vital 55cc/hr, FWF [id number] - GI ppx: Lansoprozole - Last BM: 10/22 - BM regimen: senna and miralax Endocrine Patient was taking oral contraceptive home medication. - A1c 6.0 - Accuchecks Hematology Recent Labs Component Name 10/27/22202810/27/22 0054 WBC 21.1* 19.5* HGB 7.6* 8.0* HCT 24.2* 24.6* PLTCOUNT 486* 519* PLATELET - Occasional* #Occlusion of the R EIA + proximal EXTRUDING PRESS ADJUSTER likely iatrogenic - vascular surgery following - DP pulses present - Scheduled for OR on 10/30??for right femoral cutdown, thrombectomy, angiogram with possible intervention, possible vein harvest. - Make NPO sips with meds the midnight prior DVT ppx: SCDs/ heparin gtt Hypercoaguable workup per stroke team. Musculoskeletal No active issues Disposition - PT/OT pending Feeds/Fluids: Tube Feeds Analgesia: tylenol Sedation: none Thromboprophylaxis: scd, heparin gtt HOB: HOB >30 degrees Ulcer Ppx: Lansozprozole 30 Glucose: wnl BR: senna and miralax Indwelling lines: 2 PIVs, NGT De-escalation: pending final bcx results Family: updated at bedside Tim Marinelli MD Neurology Resident. PGY-4 [facility]. Associated attestation - Shahbaz Bowen MD - 10/28/2022 2:36 PM CDT NEURO R MCA infarct s/p TNK and thrombectomy 10/23: ASA per stroke team. keep SBP <180, Cerebral edema on CT this AM stable, Vegetation on aortic side of aortic valve found on SARAH with workup and management below. No needs for osmolar therapyto control ICPs, but use hypertonic saline bolus for ICP > 22 for > 5mins. MRI brain to f/u on aneurysm on prior CTA. 10/24: No acute changes in neuro-exam, LEONCIO and drain removed by NSGY 10/23 in preparation for startingheparin. We will f/u NSGY regarding flap fullness. MRI today showing petechial hemorrhages in the Rinfarct distribution, Small areas of sub-acute infarct on the L side consistent with showering likely with initial event. 10/25: no changes in neuro-exam. CT head today with stable findings. Starting heparin today as belowwill watch closely for signs of intracranial bleeding. 10/26: Heparin initiated, no changes on neuroexam, but not therapeutic yet this AM 10/27:CT stable today, Neuro exam stable today, Heparin is near therapeutic 10/28: Heparin in therapeutic range today RESP Acute resp failure, intubated due to changes in mental status prior to hemicraniectomy 10/23: reports of thick secretions, no infiltrate on CXR no fever. Will monitor if not worsening will proceed to extubation if continuing to meet criteria tomorrow. 10/24: RSBI 70s today, following commands, takes deep breath when asked. Extubated to NC 10/25: Doing well extubated, minimal O2 requirement. Trial of vest therapy today along with NT suctioning, out of bed to neurochair. 10/26: Hold NT suctioning while on heparin, awaiting to get into neurochair until she has a helmet which is ordered, fio2 decreased 10/27: has a helmet today so will get into the neurochair. CXR looks clean with no complications with difficult secretion management. 10/28: improved secrection burden, OOBT to chair as kristen again today CVS Aortic vegetation Arterial thrombus 10/23: Vegetation discovered differential includes bacterial vegetation, auto- immune thrombus, or fibroelastoma, no signs of valve dysfunction, will send blood cultures. Cardiac CT to see if further information can be elucidated. f/u with rheum re further workup. 10/24: awaiting read on cardiac CT, holding on starting heparin per stroke team 10/25: Incidentally clot found in the R EXTRUDING PRESS ADJUSTER, non-occlusive, with good pulses peripherally. 10/26: no acute changes, stroke team may get vascular surgery involved due to clot found near puncture site yesterday 10/27: Good pulses present in RLE. Vascular following, may take to OR on Sunday per notes. 10/28: No changes in LE pulses, still plans for possible OR on Sunday RENAL/ Urinary Retention 10/23: c/w bladder scan and straight cath 10/24: some spontaneous urination overnight (incontinence) but having to be straight cath'd this AM 10/25: Switch to straight cathing for 250ml as opposed to 500mls today 10/26: continued requirement for straight cathing. Puentes placed due to urethral pain and irritation 10/27: Given rising WBC and recent hx of retention, will f/u UA to check for infection 10/28: c/w puentes, UA clean ENDO -monitor for stress Hyperglycemia GI Nutrition at risk 10/23: TF paused for SARAH procedure briefly. No reports of intolerance. Last BM on 10/22 on a bowel regimen. Will pause for a couple hrs prior to extubation. Had a brief discussion with mother and on high likelihood of needing a PEG for nutritional support 10/24: c/w TF will pause temporarily if extubating today 10/25: Doing well from an airway perspective, will begin titration back to goal 10/26:TF and flushes at goal, had a bowel movement today, will continue with current regimen 10/27: will continue with current regimen 10/28: had 3 BM yesterday, may need to taper back regimen, will observe HEME Anemia 10/23: Will monitor for signs/sites of bleeding (craniectomy site/groin access site), non so far. 10/24: Hgb stable from yesterday, no external signs of bleeding 10/25: Hgb stable today. No bleeding 10/26: No signs of bleeding on heparin initiation 10/27: Hgb level stable 10/28: Hgb slightly down, no obv sites of bleeding, may be secondary to frequent blood draws Anticoagulation for possible non bacterial endocarditis 10/23: starting heparin has risk of hemorrhagic conversion after her large CVA. After discussion stroke service will hold on starting AC until BCX return. 10/24: After multi-disciplinary discussion holding on starting heparin at this time to give cx more time. 10/25: starting heparin today for goal ptt of 60-80, will have gentle titration 10/26: Ptt slowly creeping towards range as we desire due to high risk for having a hemorrhagic conversion 10/27: Ptt hitting into range then dropping, if more escalation is needed will need to discuss if pthas some type of AT3 deficiency. 10/28: AT3 activity within range, heparin jumping into the therapeutic range. ID WBC 10 on admission, then with what was likely Post procedure leukocytosis, now stable but elevatedwithout intervention. no fevers. 10/23: Send Blood cultures x2 10/24: Send Blood cultures x2 again. Stroke team consulting with ID to assist in decision to start abx 10/25: Started on abx (vanc/ceftriaxone) overnight as per ID recs. May be able to stop if all cx finalize to negative' 10/26: Bcx continue to be negative, additional serologies sent as per ID recs, 10/27: Rising WBC no fever. In the absence of us being able to find an infection this likely is pharmaceutical service representative of an inflammatory response from CVA + return of euvolemia. Continuing with ceftriaxone and vanc. 10/28: WBC continuing to rise, UA clean, CXR clean, BCX negative. Will f/u ID if there are any otherinfectious concerns or if abx need to be widened. The present set of clinical problems have a high likelihood of sudden deterioration associated withsignificant morbidity and involve high complexity decision making to frequently assess, manipulate,and support vital systems function. Discontinuation of therapies, or advanced physiological and clinical monitoring, poses a significant threat of prolonged morbidity or mortality. Critical Care 30-74 minutes: 34 mins (Time involved in the performance of separately billable procedures, teaching, or reviewing educational material was not counted towards critical care time.) * Mine Mckinley, RN - 10/27/2022 9:00 PM CDT Problem: ELOPEMENT/ABDUCTION Goal: Risk for elopement &/or abduction during hospitalization is minimized Outcome: Progressing Problem: Safety related to restraint use Goal: Absence of injury while restrained Outcome: Progressing Problem: Fall Risk Goal: Fall risk and fall related injury risk are minimized (interventions related to the fall risk can be found in the flowsheet documentation) Outcome: Progressing Problem: Skin Integrity Goal: Skin integrity is maintained or improved Outcome: Progressing Problem: Pain/Discomfort Goal: Patient exhibits reduced pain/discomfort as evidenced by pain scores Outcome: Progressing Goal: Patient uses pharmacological and non-pharmacological pain management strategies. Outcome: Progressing Goal: Patient verbalizes acceptable level of pain relief and ability to engage in desired activity. Outcome: Progressing Problem: Neurological Deficit Goal: Neurological status is stable or improving Outcome: Progressing Problem: Hemodynamic Status/Cardiac Output Goal: Patient has stable vital signs and fluid balance Outcome: Progressing Problem: Mobility Goal: Patient's mobility/activity will be maintained as optimum level for age, diagnosis and physical limitations Outcome: Progressing Goal: Continuum of care needs are further met through referral to outpatient services when appropriate. Outcome: Progressing Goal: Patient reports the ability to perform Activities of Daily Living. Outcome: Progressing Problem: Nutrition Goal: Nutritional status is improving Outcome: Progressing Problem: Aspiration Precautions Goal: Patient's risk of aspiration is minimized Outcome: Progressing Problem: Knowledge Deficit,Education,Discharge Plan Goal: The patient/family will understand cerebrovascular disease and its symptoms, treatment and management Outcome: Progressing Problem: Oral Intake: Inadequate oral intake Goal: Total intake will meet estimated nutrient needs Outcome: Progressing Problem: Swallowing Goal: LTG - Patient will tolerate the least restrictive diet consistency to allow for safe consumption of daily meals Outcome: Progressing Problem: Transfers Goal: STG - Transfer from bed to chair Outcome: Progressing Problem: Risk for Violence: Self-Directed or Other Directed Description: Diagnosis: Risk for self-directed Violence or Risk for Directed Violence Risk Factors: Biochemical/neurologic imbalances, impulsivity, manic excitement, psychotic symptomatology, rage reaction, restlessness Possibly Evidenced By: agitated behaviors, delusional thinking, hallucinations, loud/threatening/profane speech, poor impulse control, provocative behaviors, verbal threats against others, verbal threats against self Goal: Patient will verbalize control of feelings. Outcome: Progressing Goal: Patient will respond to interventions when potential or actual loss of control occurs. Outcome: Progressing Goal: Patient will refrain from provoking others to physical harm. Outcome: Progressing Goal: Patient will display nonviolent behaviors toward others in the hospital, with the aid of medications and nursing interventions. Outcome: Progressing Goal: Patient will seek help when experiencing aggressive impulses. Outcome: Progressing Goal: Patient will refrain from verbal threats and loud, profrane language toward others. Outcome: Progressing Goal: Patient will be safe and free from injury. Outcome: Progressing * Valdez Oshea RN - 10/27/2022 6:31 PM CDT Problem: ELOPEMENT/ABDUCTION Goal: Risk for elopement &/or abduction during hospitalization is minimized Outcome: Progressing Problem: Safety related to restraint use Goal: Absence of injury while restrained Outcome: Progressing Problem: Fall Risk Goal: Fall risk and fall related injury risk are minimized (interventions related to the fall risk can be found in the flowsheet documentation) Outcome: Progressing Problem: Skin Integrity Goal: Skin integrity is maintained or improved Outcome: Progressing Problem: Pain/Discomfort Goal: Patient exhibits reduced pain/discomfort as evidenced by pain scores Outcome: Progressing Goal: Patient uses pharmacological and non-pharmacological pain management strategies. Outcome: Progressing Goal: Patient verbalizes acceptable level of pain relief and ability to engage in desired activity. Outcome: Progressing Problem: Neurological Deficit Goal: Neurological status is stable or improving Outcome: Progressing Problem: Hemodynamic Status/Cardiac Output Goal: Patient has stable vital signs and fluid balance Outcome: Progressing Problem: Oxygenation/Respiratory Function Goal: Respiratory rate/effort will be within specified limits Outcome: Progressing Problem: Mobility Goal: Patient's mobility/activity will be maintained as optimum level for age, diagnosis and physical limitations Outcome: Progressing Goal: Continuum of care needs are further met through referral to outpatient services when appropriate. Outcome: Progressing Goal: Patient reports the ability to perform Activities of Daily Living. Outcome: Progressing Problem: Communication Impairment/Dysarthria Goal: Ability to express needs and understand communication Outcome: Progressing Problem: Nutrition Goal: Nutritional status is improving Outcome: Progressing Problem: Aspiration Precautions Goal: Patient's risk of aspiration is minimized Outcome: Progressing Problem: Glycemic Control Goal: Clinical indication of glycemia balance is achieved Outcome: Progressing Problem: Knowledge Deficit,Education,Discharge Plan Goal: The patient/family will understand cerebrovascular disease and its symptoms, treatment and management Outcome: Progressing Problem: Oral Intake: Inadequate oral intake Goal: Total intake will meet estimated nutrient needs Outcome: Progressing Problem: Swallowing Goal: LTG - Patient will tolerate the least restrictive diet consistency to allow for safe consumption of daily meals Outcome: Progressing Problem: Transfers Goal: STG - Transfer from bed to chair Outcome: Progressing Problem: Risk for Violence: Self-Directed or Other Directed Description: Diagnosis: Risk for self-directed Violence or Risk for Directed Violence Risk Factors: Biochemical/neurologic imbalances, impulsivity, manic excitement, psychotic symptomatology, rage reaction, restlessness Possibly Evidenced By: agitated behaviors, delusional thinking, hallucinations, loud/threatening/profane speech, poor impulse control, provocative behaviors, verbal threats against others, verbal threats against self Goal: Patient will verbalize control of feelings. Outcome: Progressing Goal: Patient will respond to interventions when potential or actual loss of control occurs. Outcome: Progressing Goal: Patient will refrain from provoking others to physical harm. Outcome: Progressing Goal: Patient will display nonviolent behaviors toward others in the hospital, with the aid of medications and nursing interventions. Outcome: Progressing Goal: Patient will seek help when experiencing aggressive impulses. Outcome: Progressing Goal: Patient will refrain from verbal threats and loud, profrane language toward others. Outcome: Progressing Goal: Patient will be safe and free from injury. Outcome: Progressing * Paris Mohr MD - 10/27/2022 3:59 PM CDT Images from the original note were not included. Neurocritical Care Progress Note Consuelo Darby Age: [age] year old Date of : 1980 Date of Admission: 10/19/2022 Hospital Day: 8 Subjective History of Present Illness Consuelo Darby is a 41yo M who developed acute onset L sided weakness, L-sided sensory deficits, and dysarthria. L sided weakness resolved in route and dysarthria improved in route. On arrival patient noted to L gaze plasy, L hemainopsia, mild dysarthria, and extinction. NIHSS: 7. Patient was givenTNK and code IVR was activated. TICI2b revascularization of the R MCA M1 occlusion. 10/19: Cardene drip for maintaining SBP <140 post MT. 10/20: Taken for hemicrani with nsg. Intubated 10/21: Off levo, prop and fent. On Precedex. Tolerating PSV. 10/22: CTH showed increased edema but no MLS. ICPs wnl. Tolerating PSV well. 10/23: aortic valve mobile vegetation identified on SARAH. BCX ordered. Held off on heparin due to bleeding risk and awaiting blood cultures. ICPm removed. On PSV. 10/24: Extubated to 4L NC. ID consulted. Started empiric abx vanc rocephin. MRI with acute subacute small infarcts in L MCA territory 10/25: started heparin drip with aPTT goals of 60-80. CT CAP: no masses or infections, occlusion of the R EIA + proximal EXTRUDING PRESS ADJUSTER 10/26: reached goal aptt overnight. Neuro exam stable. CTH stable, no bleed. Puentes placed (straight caths painful) Interval History: No acute events overnight. Objective BP 147/85 Pulse 105 Temp 98.3 ??F (36.8 ??C) (Oral) Resp 18 Ht 1.626 m (5' 4 ) Wt 95.3 kg(210 lb) SpO2 96% Temp (30hrs) Max:98.8 ??F (37.1 ??C) Body mass index is 36.05 kg/m??. Exam - Neurologic Intubated Communicates with thumbs up to answer yes and two fingers answer no. Pupils reactive bilaterally Cough and gag present Opens eyes to verbal stimuli Moves RUE/RLE spont Follows commands on RUE/RLE LUE/LLE spontaneous foot movement and finger movement noted. Did not follow commands on left side. Con - afebrile Heent - carla on right side of head, soft scalp and MCA IRMA pulse present. S/p DHC Neck - no masses, trachea midline.NGT in place CV - no chest wall tenderness, tachycardia present, no MGR. Regular rhythm. Normal S1 and S2 Pulm - normal respiratory effort Abd - soft, NTND, bowel sounds present Pulses - BL dorsalis pedis present, weaker on right side but 2+ cap refill Labs: Reviewed. Imaging: Reviewed Hospital Problems on Admission: Right middle cerebral artery stroke (CMS/HCC) (POA: Unknown) Acute cerebrovascular accident (CVA) due to embolism of right middle cerebral artery (CMS/HCC) (POA: Yes) Nihss score 9 (POA: Yes) Received intravenous tissue plasminogen activator (tPA) in emergency department (POA: Yes) GERD (gastroesophageal reflux disease) (POA: Yes) Hemianopsia (POA: Yes) Weakness (POA: Yes) Left-sided sensory deficit present (POA: Yes) Gaze palsy (POA: Yes) Migraine (POA: Unknown) Hypertension (POA: Unknown) Assessment Consuelo Darby is a 41 year old female presenting with R gaze preference, L hemianopsia, L arm and leg hemiparesis, and L extinction. CTA with RMCA M1 occlsuion. S/P TNK and MT with TICI 2B recanalization. Admitted to neuroICU for post MT and post TNK monitoring. S/P DHC on 10/20 and remained intubated after procedure. 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 Differentials include infective endocarditis, non-infective endocarditis and fibroelastoma Found to have occlusion of the R EIA + proximal EXTRUDING PRESS ADJUSTER likely iatrogenic Plan Neurological ICP 12-21 LEONCIO drain 45cc R MCA M1 occlusion s/p MT with TICI 2B recanalization S/P TNK administration. 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 Marquez in 10-14 days for wound check and staple removal. If patient is still inpatientat that time, please call NSGY for staple removal. - Neurological checks q1hr - Pupillometer checks q1hr with recorded NPIs q1hr - ASA 81 held while on heparin gtt - Lipitor 80g daily - Head of bed > 30?? Hx Migraines - On Amitriptyline 50 mg BID and Verapamil 120mg daily at home. Hold amitriptyline. Cardiovascular HR 75-133, BP Min: 95/52 Max: 174/91 Hx of Hypertension - On Metoprolol 25 mg BID at home, continued. 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 Preliminary bcx negative x3 - Continue empiric abx until final cultures result - F/u fungal workup - Rheumatology consulted to evaluate for non-infective endocarditis. All workup negative for rheumatological causes, no evidence of Antiphospholipid syndrome - CTS consulted for possible removal of vegetation. However, not a candidate at this time. - 10/25 started heparin drip. aptt goal 60-80, no boluses - Daily CTH while on heparin drip. - SBP goal < 160 No PRNs ordered at this time. Nursing staff told to call MD if consistently elevated blood pressures. Respiratory AHRF- resolved - Intubated after hemicrani on 10/20. Extubated 10/24, to ME - Bronchial hygiene q4h, vest and if able to cough will switch to aerobika - Aspiration precautions - Elevate head of bed 30-45 degrees - Frequent suctioning, no NT suctioning while on heparin - Maintain oxygen saturation > 92% Renal/Electrolytes Intake/Output Summary (Last 24 hours) at 10/27/2022 1559 Last data filed at 10/27/2022 0800 Gross per 24 hour Intake 945 ml Output 1150 ml Net -205 ml Urinary retention - continue tamsulosin - requiring frequent straight caths, extremely painful. Thus puentes placed 10/26 - UA normal Electrolyte derangements - Replete electrolytes as needed Infectious Disease Temp (24hrs), Av.1 ??F (36.7 ??C), Min:97.1 ??F (36.2 ??C), Max:98.8 ??F (37.1 ??C) Leukocytosis - f/u blood cultures - f/u culture negative workup ordered as recommended by ID - on empiric abx vanc and rocephin SOT 10/25 - Monitor for fevers - Ramirez culture if febrile Gastrointestinal Hx GERD - Lansoprozole 30 mg ordered. - Diet: Goal TF Vital 55cc/hr, FWF [id number] - GI ppx: Lansoprozole - Last BM: 10/22 - BM regimen: senna and miralax Endocrine Patient was taking oral contraceptive home medication. - A1c 6.0 - Accuchecks Hematology Recent Labs Component Name 10/27/22 0054 WBC 19.5* HGB 8.0* HCT 24.6* PLTCOUNT 519* PLATELET Occasional* #Occlusion of the R EIA + proximal EXTRUDING PRESS ADJUSTER likely iatrogenic - vascular surgery following - DP pulses present - Tentatively scheduled for OR on 10/30??for right femoral cutdown, thrombectomy, angiogram with possible intervention, possible vein harvest. - Make NPO sips with meds the midnight prior DVT ppx: SCDs Hypercoaguable workup per stroke team. Musculoskeletal No active issues Disposition - PT/OT pending Feeds/Fluids: Tube Feeds Analgesia: tylenol Sedation: none Thromboprophylaxis: scd, heparin gtt HOB: HOB >30 degrees Ulcer Ppx: Lansozprozole 30 Glucose: wnl BR: senna and miralax Indwelling lines: 2 PIVs, NGT De-escalation: pending final bcx results Family: updated at bedside Paris Mohr MD Neurology Resident. PGY-3 [facility]. Associated attestation - Shahbaz Bowen MD - 10/27/2022 4:40 PM CDT NEURO R MCA infarct s/p TNK and thrombectomy 10/23: ASA per stroke team. keep SBP <180, Cerebral edema on CT this AM stable, Vegetation on aortic side of aortic valve found on SARAH with workup and management below. No needs for osmolar therapyto control ICPs, but use hypertonic saline bolus for ICP > 22 for > 5mins. MRI brain to f/u on aneurysm on prior CTA. 10/24: No acute changes in neuro-exam, LEONCIO and drain removed by NSGY 10/23 in preparation for startingheparin. We will f/u NSGY regarding flap fullness. MRI today showing petechial hemorrhages in the Rinfarct distribution, Small areas of sub-acute infarct on the L side consistent with showering likely with initial event. 10/25: no changes in neuro-exam. CT head today with stable findings. Starting heparin today as belowwill watch closely for signs of intracranial bleeding. 10/26: Heparin initiated, no changes on neuroexam, but not therapeutic yet this AM 10/27:CT stable today, Neuro exam stable today, Heparin is near therapeutic RESP Acute resp failure, intubated due to changes in mental status prior to hemicraniectomy 10/23: reports of thick secretions, no infiltrate on CXR no fever. Will monitor if not worsening will proceed to extubation if continuing to meet criteria tomorrow. 10/24: RSBI 70s today, following commands, takes deep breath when asked. Extubated to NC 10/25: Doing well extubated, minimal O2 requirement. Trial of vest therapy today along with NT suctioning, out of bed to neurochair. 10/26: Hold NT suctioning while on heparin, awaiting to get into neurochair until she has a helmet which is ordered, fio2 decreased 10/27: has a helmet today so will get into the neurochair. CXR looks clean with no complications with difficult secretion management. CVS Aortic vegetation Arterial thrombus 10/23: Vegetation discovered differential includes bacterial vegetation, auto- immune thrombus, or fibroelastoma, no signs of valve dysfunction, will send blood cultures. Cardiac CT to see if further information can be elucidated. f/u with rheum re further workup. 10/24: awaiting read on cardiac CT, holding on starting heparin per stroke team 10/25: Incidentally clot found in the R EXTRUDING PRESS ADJUSTER, non-occlusive, with good pulses peripherally. 10/26: no acute changes, stroke team may get vascular surgery involved due to clot found near puncture site yesterday 10/27: Good pulses present in RLE. Vascular following, may take to OR on Sunday per notes. RENAL/ Urinary Retention 10/23: c/w bladder scan and straight cath 10/24: some spontaneous urination overnight (incontinence) but having to be straight cath'd this AM 10/25: Switch to straight cathing for 250ml as opposed to 500mls today 10/26: continued requirement for straight cathing. Puentes placed due to urethral pain and irritation 10/27: Given rising WBC and recent hx of retention, will f/u UA to check for infection ENDO -monitor for stress Hyperglycemia GI Nutrition at risk 10/23: TF paused for SARAH procedure briefly. No reports of intolerance. Last BM on 10/22 on a bowel regimen. Will pause for a couple hrs prior to extubation. Had a brief discussion with mother and on high likelihood of needing a PEG for nutritional support 10/24: c/w TF will pause temporarily if extubating today 10/25: Doing well from an airway perspective, will begin titration back to goal 10/26:TF and flushes at goal, had a bowel movement today, will continue with current regimen 10/27: will continue with current regimen HEME Anemia 10/23: Will monitor for signs/sites of bleeding (craniectomy site/groin access site), non so far. 10/24: Hgb stable from yesterday, no external signs of bleeding 10/25: Hgb stable today. No bleeding 10/26: No signs of bleeding on heparin initiation 10/27: Hgb level Anticoagulation for possible non bacterial endocarditis 10/23: starting heparin has risk of hemorrhagic conversion after her large CVA. After discussion stroke service will hold on starting AC until BCX return. 10/24: After multi-disciplinary discussion holding on starting heparin at this time to give cx more time. 10/25: starting heparin today for goal ptt of 60-80, will have gentle titration 10/26: Ptt slowly creeping towards range as we desire due to high risk for having a hemorrhagic conversion 8/18: Ptt hitting into range then dropping, if more escalation is needed will need to discuss if pthas some type of AT3 deficiency. ID WBC 10 on admission, then with what was likely Post procedure leukocytosis, now stable but elevatedwithout intervention. no fevers. 10/23: Send Blood cultures x2 10/24: Send Blood cultures x2 again. Stroke team consulting with ID to assist in decision to start abx 10/25: Started on abx (vanc/ceftriaxone) overnight as per ID recs. May be able to stop if all cx finalize to negative' 10/26: Bcx continue to be negative, additional serologies sent as per ID recs, 10/27: Rising WBC no fever. In the absence of us being able to find an infection this likely is pharmaceutical service representative of an inflammatory response from CVA + return of euvolemia. Continuing with ceftriaxone and vanc. Critical Care 30-74 minutes: 40 mins (Time involved in the performance of separately billable procedures, teaching, or reviewing educational material was not counted towards critical care time.) * Sima Gardner, SIGNALING PROJECT ENGINEER - 10/27/2022 3:56 PM CDT [facility] Physical Medicine and Rehabilitation Swallow Treatment Patient: Consuelo Darby Med Record Number: [id number] Date of : 1980 Age: [age] year old PPE: PPE worn by staff: (P) gloves Impressions: Pt presents with severe oral dysphagia, suspected moderate to severe pharyngeal dysphagia. Orally defensive throughout session, minimal acceptance of ice chips with maximal multi-modal cueing and sensory stimulation. No attempts to manipulate ice chips noted, although as ice melts pt does demo lingual movement for a-p transit (noted d/t slightly open mouth position). Delayed wet cough noted 3/3 ice chip trials. Recommend to continue strict NPO. Recommendations: Diet Liquids Recommendation: (P) NPO Diet Solids Recommendation: (P) NPO Recommended Form of Meds: (P) NPO;Feeding Tube Recommended Tests/Consults: Recommendations: (P) Dysphagia Treatment Discharge Recommendations: Speech therapy is recommended to improve swallow function. SUBJECTIVE: Patient Goals: Unable to state Pain Assessment: Pt denies pain OBJECTIVE: Level of Consciousness: alert Orientation Level: unable to obtain, responds to own name majority of opportunities Positioning: Upright in bed Swallow Trials: Ice chips: Presentation: (P) Spoon-Assisted Oral: (P) Increased Anterior to Posterior Transit Pharyngeal: (P) Decreased Laryngeal Elevation;Delayed Swallow (Suspected) Assessment: Primary Diagnostic Impression - Oral: (P) Moderate;Severe Primary Diagnostic Impression - Pharyngeal: (P) Moderate;Severe (Suspected) Treatment/Education/Interventions: While performing SIGNALING PROJECT ENGINEER, Patient and spouse was instructed in: results of swallow evaluation and recommendations for NPO status given patient's elevated aspiration risk. Patient demonstrated Questionable understanding of instructions given. Nurse contacted regarding results of treatment session. INFORMED CONSENT TO TREATMENT: Plan of care is discussed but patient with questionable understanding. Short Term Goals Patient will participate in an instrumental swallow assessment as appropriate. Group Home Goal (s): Patient to discharge to appropriate next level of inpatient care. Plan: Dysphagia treatment * Vickie Muller MD - 10/27/2022 3:06 PM CDT Stroke Service Daily Progress Note Consuelo Darby Age: [age] year old Date of : 1980 Date of Admission: 10/19/2022 Hospital Day: 8 Subjective Consuelo Darby is a 41yo M hemiplegic migraine, GERD, GENESIS. who developed acute onset L sided weakness, L-sided sensory deficits, and dysarthria. L sided weakness resolved in route and dysarthria improved in route. On arrival patient noted to hae L gaze plasy, L hemainopsia, mild dysarthria, and extinction. NIHSS: 7. Patient was given TNK and code IVR was activated. TICI2b revascularization of theR MCA M1 occlusion. Admitted to ICU for post- thrombectomy monitoring. Repeat CTH showing edema in RMCA territory. On 10/20/22 patient taken for hemicraniectomy, post-op CTH showing stable midline shift. Initial hypercoag work up negative, repeat in [address], QDay CTH. NSGY following. CTH 10/22 showing large R MCA infarct, minimal midline. shift. Starting lovenox. -10/23- SARAH concerning for aortic cusp vegetations. [...] Bilateral pulses are present. Vascular surgery consult. ?? Interval History: WBC increasing, 19.5 today. Factor V Leiden negative, BC preliminarily negative at [address] head stable. Vascular intervention tentatively happening on Sunday. Objective Patient Vitals for the past 24 hrs: BP Temp Temp src Pulse Resp SpO2 10/27/22 0835 147/85 -- -- 105 -- -- 10/27/22 0800 141/63 98.3 ??F (36.8 ??C) Oral 94 18 96 % 10/27/22 0700 140/73 -- -- 88 19 99 % 10/27/22 0600 140/88 97.5 ??F (36.4 ??C) -- 93 18 98 % 10/27/22 0500 144/80 -- -- 96 17 99 % 10/27/22 0400 143/46 98 ??F (36.7 ??C) -- 80 17 100 % 10/27/22 0300 151/79 -- -- 105 18 98 % 10/27/22 0200 133/76 98.4 ??F (36.9 ??C) -- 103 20 97 % 10/27/22 0100 129/94 -- -- 96 20 97 % 10/27/22 0000 133/73 98 ??F (36.7 ??C) Axillary 89 19 97 % 10/26/22 2300 111/77 -- -- 85 19 98 % 10/26/22 2200 122/64 98 ??F (36.7 ??C) Axillary 88 20 96 % 10/26/22 2100 110/63 -- -- 88 18 98 % 10/26/22 2000 150/70 97.1 ??F (36.2 ??C) Axillary 100 20 98 % 10/26/22 1800 138/70 98.8 ??F (37.1 ??C) Axillary 108 23 97 % 10/26/22 1700 150/91 -- -- (!) 118 24 95 % 10/26/22 1600 147/83 98.7 ??F (37.1 ??C) Axillary 103 23 97 % Intake/Output Summary (Last 24 hours) at 10/27/2022 1506 Last data filed at 10/27/2022 0800 Gross per 24 hour Intake 945 ml Output 1150 ml Net -205 ml Exam: Cortical Function Mental Status Awake, alert, follows commands Orientation REYNOLD Language Aphasia Visual Powell Intact bilaterally to confrontation Neglect No visual neglect noted, no tactile neglect noted Cranial Nerves II Pupils 3 mm and bilaterally reactive to light. Fundoscopic exam not performed. VIII Hearing is intact bilaterally to finger rub. III/IV/ Extraocular muscles intact. No diplopia, ptosis, nystagmus or convergence abnormalities noted. IX/X Palate elevated symmetrically without phonation abnormalities noted. V Facial sensation symmetric to light touch and intact bilaterally. Corneal reflex not examined. XIHead turning and shoulder shrug are intact. VII No facial palsy noted. XII Tongue is midline with normal movements and no atrophy noted. Motor Function Movement No abnormalities noted Bulk No abnormalities noted Tone No abnormalities noted Moves RUE and RLE, tries to withdraw to pain in LUE and LLE Sensory Light Touch REYNOLD Noxious Stimuli Symmetric and intact bilaterally Labs: Recent Labs Component Name 10/27/225310/26/22 0002 10/25/22 0007 10/23/22 0129 10/22/22 0153 WBC 19.5* 16.1* 16.6* - - RBC 2.60* 2.64* 2.65* - - HGB 8.0* 8.1* 8.2* - - HCT 24.6* 25.1* 25.1* - - PLT - - - - 199 - = values in this interval not displayed. Recent Labs Component Name 10/27/225310/26/22 0002 10/25/22 0007 NA 138 139 140 CL 107 105 106 CO2 24 24 25 BUN 11 13 16 CREATININE 0.53* 0.54* 0.48* CALCIUM 8.4 8.4 9.0 No results for input(s): MG in the last 36109 hours. Recent Labs Component Name 10/27/22 0054 10/26/22 0002 10/25/22 0007 PHOS 3.5 3.5 3.7 Recent Labs Component Name 10/27/22 1158 10/27/22 0608 10/27/22 0054 10/26/22 0647 10/26/22 0426 10/25/22 2102 10/25/22 1641 PT - 13.7 - - 13.6 - 13.4 INR - 1.1 - - 1.0 - 1.0 PTT 44.7* 58.6* 59.5* - - - 24.8 - = values in this interval not displayed. No results for input(s): A1C in the last 57175 hours. Recent Labs Component Name 10/20/22 0302 06/15/22 0757 CHOL 173 204* HDL 42 37* LDLCALC 91 117* TRIG 201* 251* Recent Labs Component Name 06/15/22 0757 TSH 1.873 No results for input(s): CKMB, CKTOTAL, CKMB, TROPONINI, BNP in the last [address] ANGIO BRAIN NECK STROKE Result Date: 10/19/2022 PROCEDURE: CT ANGIO BRAIN NECK STROKE, DATE/TIME OF EXAM: 10/19/2022 8:16 AM, LOCATION [facility] INDICATION: Code Stroke ADDITIONAL CLINICAL INFORMATION: Ordering Provider Reason For Exam: Technologist Note: Additional: EXAMINATION: 1. Computed tomographic (CT) angiography of the head with contrast 2. CT angiography of the neck with contrast TECHNIQUE: CT angiography of the headand neck was obtained after the uneventful administration [...] a concurrent noncontrasted head CT for detailed intracranialfindings including findings suggesting an acute right MCA [...] arteries are patent. The basilar artery is patentpatent. 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 IMPRESSION: 1. [...] Lonnie Rae MD on 10/19/2022 8:[address] BRAIN - Stroke Result Date: 10/19/2022 PROCEDURE: CT BRAIN STROKE, DATE/TIME OF EXAM: 10/19/2022 8:04 AM, LOCATION [facility] INDICATION: Code Stroke ADDITIONAL CLINICAL INFORMATION: Ordering [...] of scott-white matter differentiation in the right frontotemporallobes and the right insula, concerning for an acute infarct. There is suggestion of a hyperdense right MCA likely represent acute thrombus (series 5 image 25). No acute intracranial hemorrhage or intra- or extra-axial fluid collections are identified. The ventricles are of normal size, shape, and morphology. The basal cisterns are patent. No mass effect or midline shift is seen. The scott-white mat ter differentiation is normal. The visualized portions of [...] Lonnie Rae MD on 10/19/2022 8:15 AM Right middle cerebral artery stroke (CMS/HCC) (POA: Unknown) Acute cerebrovascular accident (CVA) due to embolism of right middle cerebral artery (CMS/HCC) (POA: Yes) Nihss score 9 (POA: Yes) Received intravenous tissue plasminogen activator (tPA) in emergency department (POA: Yes) GERD (gastroesophageal reflux disease) (POA: Yes) Hemianopsia (POA: Yes) Weakness (POA: Yes) Left-sided sensory deficit present (POA: Yes) Gaze palsy (POA: Yes) Migraine (POA: Unknown) Hypertension (POA: Unknown) Assessment ??Consuelo Darby is a 41 year old female who presented on 10/19 with Right MCA syndrome s/p TNK. CTA 1 M1 occlusion. S/P mechanical thrombectomy with R M1 recanalization and TICI2b. CT 10/20/22 with edema and mild shift. S/P decompressive right hemicraniectomy. Echo showed a mobile aortic valve vege tation. MRI brain with scattered cortical R hemisphere infarcts with petechiae. ?? Stroke Type: Ischemic Stroke Mechanism: ESUS ?? Plan Neurological ?? R M1 ischemic stroke; active - s/p TICI2b revascularization, TNK - s/p decompressive hemicrani on 10/20 for malignant MCA - HbA1C: 6.0, LDL: 91, Cardiac Enzymes; wnl - q1h vitals and neurological checks - atorvastatin 80 mg - Repeat CT head ordered Core Measures TNK administration: yes Anti-thrombotic: holding while on AC Statin: atorvastatin 80mg DVT prophylaxis: heparin gtt Swallow Evaluation: pending PT/OT Evaluation: pending Smoking cessation: N/A Migraine - verapamil 40 TID GENESIS - cont home amitriptyline Cardiovascular ? 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 CT C/A/P/ ordered. - dentist evaled teeth, no concern - Follow blood cultures. If negative at 48 h will start heparin gtt - CT cardiac concerning more for vegetation R illiac and common femoral artery occlusion - Vascular surgery tentatively to perform intervention on Sunday ?? HTN: - home metop Blood Pressure Goals: SBP <160, map >70 Respiratory ? #AHRF - Extubated - Aspiration precautions - Elevate head of bed - Maintain oxygen saturation > 92% - Monitor for respiratory distress Gastrointestinal ? No acute issues - NPO until passes swallow. 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 No acute issues ?? - Monitor intake and output - Replete electrolytes as needed Hematology ? No acute issues ?? - Transfuse for hemoglobin < 7.0 g/dL Endocrine ? Vit D deficiency - Vit D 2,000 U daily Infectious Disease ? Concern for vegetation on left coronary cusp ??Leukocytosis - ID consult. See details above Musculoskeletal ? No acute issues Disposition ? - PT/OT pending ?? Individual Modifiable Risk Factors Hypertension: no Hyperlipidemia: no Diabetes: no Atrial Fibrillation: no Tobacco: no Vickie Muller PGY-2 Neurology resident * Bulmaro Ochoa RN - 10/27/2022 2:22 PM CDT Care Coordination Progress Note Anticipated level of care at discharge: Home, Acute Rehab Facility: Anticipated level of care provider: None: Anticipated Discharge Date: 11/03/22 Discharge Plan: Pending patient's progress with medical treatment and care team recommendations. PT, OT recommendations-Patient to discharge to appropriate next level of inpatient care. Consult was placed for SW, SW was notified. Patient??tentatively??scheduled for OR on 10/30??for right femoral cutdown, thrombectomy, angiogram with possible intervention, possible vein harvest. Orientation Level: Unable to Obtain: Family Support (Name and Phone): Extended Emergency Contact Information Primary Emergency Contact: Hi Darby Address: [address] [place] [address] [place] [address] [facility] Relation: Spouse Secondary Emergency Contact: Sandra Disla [facility] Mobile Relation: Mother Transportation at Discharge: Ambulance: READMISSION RISK SCORE is 15 at 2:22 PM 10/27/2022.: Name: Bulmaro Ochoa RN BSN manager in home [phone] * Agnes Erazo, PT - 10/27/2022 11:46 AM CDT [facility] Physical Medicine and Rehabilitation Physical Therapy Re-evaluation Note Patient: Consuelo Darby Med Record Number: [id number] Date of : 1980 Age: [age] year old *new orders received; re-eval indicated 2/2 change in functional status PPE worn by staff: gloves cotx with OT Recommendations: Discharge PT Discharge Recommendations: Patient would benefit from intensive 3-hour multidisciplinary therapy This recommendation is made due to ongoing intensive PT functional needs: patient demonstrates a significant functional decline and would benefit from skilled therapy intervention to restore function;patient has the need for more than one skilled therapy service In addition to the 1:1 evaluation of the patient, additional eval time was spent completing the chart review prior to the assessment, completing the multidisciplinary plan of care and education plan post evaluation and communicating results of the eval to other treatment team members. Nurse and Occupational Therapy contacted regarding patient status and/or discharge plan. Physician Orders: Evaluation and Treat PRECAUTIONS: Weight Bearing Status: (WBAT) Other Precautions: helmet DIAGNOSIS: Patient Active Problem List: GERD (gastroesophageal reflux disease) Hemianopsia Weakness Left-sided sensory deficit present Gaze palsy Acute cerebrovascular accident (CVA) due to embolism of right middle cerebral artery (CMS/HCC) Nihss score 9 Received intravenous tissue plasminogen activator (tPA) in emergency department Migraine Hypertension Right middle cerebral artery stroke (CMS/HCC) Past Medical History: Diagnosis Date ??? Abdominal pain, right upper quadrant ??? GERD (gastroesophageal reflux disease) ??? History of hypertension gestational hypertension SUBJECTIVE: Subjective: pt gives thumbs up/down, does not make any verbalizations PATIENT GOALS: Home Situation: Type of Residence: Private Residence Lives with:: Spouse;Children Steps to Enter: 8 Home Structure: One Story Primary Bedroom: First Floor Primary Bathroom: First Floor Bathroom : Walk in Shower Equipment at Home: Walker-2 Wheeled;Chair-Shower Prior Level of Functioning: Prior Level of Function Mobility: Ambulate-In Community;Independent;Without Assistive Device Pain Assessment: pt gives thumbs up when asked if in pain; when asked to point to where pain is, pt points to head OBJECTIVE: At start of therapy session, patient found in bed and with mother and at bedside General Appearance: 41 yo F, NAD, craniectomy with helmet in room LDAs: IV's: Peripheral line, Catheter and NG/Dobbhoff Edema: no edema noted in bilateral lower extremities Vitals: (*Assess the 3 levels of oxygen saturations both for room air and 02 unless rest on room air is 88% or less). Rest BP: ? 147/85 HR: 103 Sp02 ?? Sp02 97% RA Ex/Gait/Activity Without 02 BP: ?? HR: ?? Sp02 ? Ex/Gait/Activity With 02 BP: ?? HR: ?? Sp02 ? Post Activity BP: ?? HR: ?? Sp02 ?? Sp02 ? Observations: ?? Mental Status/Cognition: Level of Consciousness-Adult: Alert Orientation Level: Unable to Obtain Cognition: Processing-delayed (consistent one step command follow on the R UE/LE) ROM: RLE: AROM WFL LLE: PROM WFL Strength: RLE:WFL LLE: 0/5 Tone: RLE: no abnormal tone noted LLE: flaccid Coordination: RLE: WNL LLE: impaired Sensation: RLE: intact LLE: not tested Perception: Inattention/Neglect: Cues to attend to left side of body;Cues to attend left visual field Visual Motor Tracking: Requires cues, head turns, or add eye shifts to track Mobility: A gait belt and non-slip socks were used for all out of bed activity this date. Helmet donned while patient in bed prior to mobility. Bed Mobility: Supine to Sit: Maximum Assistance;X 2 Sit to Supine: Maximum Assistance;X 2 Weight Bearing Status: (WBAT) Balance: Sitting - Static: Poor + Sitting - Dynamic: Poor ACTIVITY TOLERANCE: Patient's activity tolerance: good TREATMENT/INTERVENTIONS: evaluation, bed mobility training and balance activities Modified [place]: Current Modified Maryann Score: 5 AM-PAC 6 Clicks Mobility Raw Score:: 7 EDUCATION: While performing PT, Patient was instructed in:functional mobility training, safety awareness/fall precautions Patient not appropriate for education at this time secondary to mental status. INFORMED CONSENT TO TREATMENT: Plan of care not given secondary to patient's current mental status ASSESSMENT: Patient would benefit from additional Physical Therapy sessions to achieve the following functionalgoals to enhance independence. Short Term Goals: Goal Formation Patient unable to participate in goal formulation Patient will perform bed mobility with moderate assist Patient will transfer bed to/from chair with maximal assist Patient will sit EOB x10 minutes with minimal assist Environmental Marketer Goal(s): Patient to discharge to appropriate next level of inpatient care. Equipment Issued: none Plan: Plan: Gait training Transfer training Assistive device training Endurance training Bed mobility training Balance training Safety awareness Home exercise program training If patient is discharged from the facility, this note serves as a discharge summary if further physical therapy visits did not occur. Refer to filed flowsheet for further details. Following therapy session, patient left in bed, with call light within reach, with family in room. * Ronda Crawley OT - 10/27/2022 8:57 AM CDT [facility] Physical Medicine and Rehabilitation Occupational Therapy Re-Evaluation Note Patient: Consuelo Darby Med Record Number: [id number] Date of : 1980 Age: [age] year old Co re-eval with PT New orders s/p OR. Re-evaluation indicated d/t change in functional status. See updated POC PPE worn by staff: gloves;mask - procedural Tech: N/A Recommendations: OT Discharge Recommendations: Patient would benefit from intensive 3-hour multidisciplinary therapy In addition to the 1:1 evaluation of the patient, additional eval time was spent completing the chart review prior to the assessment, completing the multidisciplinary plan of care and education plan post evaluation and communicating results of the eval to other treatment team members. Nurse and Physical Therapy contacted regarding patient status and/or discharge plan. Physician Orders: Evaluation and Treat Activity Level: as tolerated PRECAUTIONS: Weight Bearing Status: (No restrictions; HELMET when OOB) DIAGNOSIS: Patient Active Problem List: GERD (gastroesophageal reflux disease) Hemianopsia Weakness Left-sided sensory deficit present Gaze palsy Acute cerebrovascular accident (CVA) due to embolism of right middle cerebral artery (CMS/HCC) Nihss score 9 Received intravenous tissue plasminogen activator (tPA) in emergency department Migraine Hypertension Right middle cerebral artery stroke (CMS/HCC) Past Medical History: Diagnosis Date ??? Abdominal pain, right upper quadrant ??? GERD (gastroesophageal reflux disease) ??? History of hypertension gestational hypertension SUBJECTIVE: Subjective: RN consents that patient can be seen for therapy. Pt able to give thumbs up/down with questionable reliability. Family present at bedside. Pt is non-verbal, aphasic. PATIENT GOALS: Patient's Primary Concern: Pt unable to articulate OT goal. 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 Rest BP: 147/85 HR: 103 Sp02 Sp02 97% RA Observations: Pt is asymptomatic. Mental Status/Cognition: Level of Consciousness-Adult: Alert Orientation Level: Unable to Obtain Cognition: Processing-delayed (consistent one step command follow on the R UE/LE) UE ROM: RUE: AROM WFL LUE: PROM WFL - pt with some pain with PROM to LUE; OT educated family on gentle PROM to L UE/L LE to prevent contracture & positioning to decrease L hand edema. Strength: RUE: WFL LUE: deficits noted - 0/5 grossly UE Tone RUE: no abnormal tone noted LUE: flaccid Coordination: LUE deficits noted for serial opposition UE Proprioception RUE: WFL LUE: Observed to be intact UE Sensation RUE: no complaints of numbness or tingling LUE: no complaints of numbness or tingling Perception: Inattention/Neglect: Cues to attend to left side of body;Cues to maintain midline in sitting;Cues to attend left visual field Visual Motor Tracking: Requires cues, head turns, or add eye shifts to track; Pt does not visually track into L hemispace Mobility: A gait belt and non-slip socks were used for all out of bed activity this date. Bed Mobility: Supine to Sit: Maximum Assistance;X 2 with HOB flat Sit to Supine: Maximum Assistance;X 2 Balance: Sitting - Static: Poor + Sitting - Dynamic: Poor Comments: Maximal assist for dynamic sit balance Activities of Daily Living Oral Facial Hygiene: Minimal Assistance - wash face with cloth using R UE/hand Upper Body Dressing: Maximal Assistance - gown Lower Body Dressing: Maximal Assistance - socks Splint Issued/Checked: L FDS and L RHS issued this date. ACTIVITY TOLERANCE: Patient's activity tolerance: poor plus. Modified [place]: Current Modified [place] Score: 5 AM-PAC 6 Clicks Daily Activity Raw Score:: 9 TREATMENT / EDUCATION / INTERVENTIONS: While performing OT, Patient and spouse and mother was instructed in:functional mobility training, self-care training, cognitive retraining, energy conservation, safety awareness/fall precautions , home exercise program, stroke education and precautions, discharge planning, use of call light Patient not appropriate for education at this time secondary to mental status. INFORMED CONSENT TO TREATMENT: Plan of care is discussed but patient with questionable understanding. ASSESSMENT: Functional performance limited due to: limited activities of daily living, pain, decreased functional mobility, decreased functional balance, decreased cognition , decreased safety awareness, upper extremity functional impairments, decreased endurance and activity tolerance, decreased coordination and decreased visual motor skills. Patient continues to benefit from skilled Occupational Therapy toachieve the following functional goals. Equipment Issued: gait belt. Short Term Goals: Goal Formation With patient/family and Patient unable to participate in goal formulation Patient will increase orientation to person, place, time and situation Patient will perform supine to/from sit with moderate assist and X 2 Patient will tolerate treatment 20 minutes, with good endurance and with minimal pain Group Home Goal(s): Patient to discharge to appropriate next level of inpatient care. Plan: Plan: ADL training Adaptive equipment training Cognitive retraining Cognitive stimulation Functional transfer training Functional balance training Endurance training Bed mobility training Energy conservation techniques Safety awareness Home exercise program training Coordination exercises If patient is discharged from the facility, this note serves as a discharge summary if further occupational therapy visits did not occur. Refer to filed flowsheet for further details. Following therapy session, patient left in bed, with call light within reach, with family in room, with RN, Valdez richards. * Liam Parks MD - 10/27/2022 8:46 AM CDT [facility] Infectious Diseases Progress Note Date of Admission: 10/19/2022 7:53 AM Length of Stay: Day 8 Room: 309/01 Attending: Emir Vail MD Subjective Since last seen by us, she has remained afebrile, hemodynamically stable, on room air. Slowly improving mental status. WBC trending up. Vascular surgery following for possible thrombectomy. Review of Systems Unable to perform ROS: Mental status change Antimicrobial History Current Antibiotics Vancomycin 10/25 - present Ceftriaxone 10/25 - present ?? Prior [facility] Cefazolin 10/20 Vancomycin 10/20 Inpatient Medications ??? *Hold/Avoid Medication Other DIRECTED ??? *Hold/Avoid Medication Other 0800 and 1999 ??? 0.9% NaCl 3 mL Intracatheter q8h ??? 0.9% NaCl 3 mL Intracatheter q8h ??? atorvastatin 80 mg Enteral Tube AT BEDTIME ??? cefTRIAXone 2 g Intravenous q12h ??? guaiFENesin 10 mL Enteral Tube q12h ??? iopamidol Intravenous Contrast - Once ??? lansoprazole 30 mg Enteral Tube QDAY BEFORE BREAKFAST ??? loratadine 10 mg Enteral Tube QDAY ??? metoprolol tartrate IR 25 mg Enteral Tube q12h ??? polyethylene glycol 3350 17 g Enteral Tube QDAY ??? senna-docusate 1 tablet Enteral Tube QDAY ??? tamsulosin 0.4 mg Enteral Tube QDAY ??? vancomycin 1,500 mg Intravenous q8h ??? vancomycin (VANCOCIN) IV dose per pharmacy Does not apply DIRECTED ??? verapamil 40 mg Enteral Tube q8h ??? Vitamin D3 (cholecalciferol) 2,000 Units Enteral Tube QDAY heparin, 500-2,150 Units/hr, Last Rate: 1,900 Units/hr (10/27/22 0650) Objective Vitals BP 147/85 Pulse 105 Temp 97.5 ??F (36.4 ??C) Resp 19 Ht 1.626 m (5' 4 ) Wt 95.3 kg (210 lb) SpO2 99% Temp (24hrs), Av.1 ??F (36.7 ??C), Min:97.1 ??F (36.2 ??C), Max:98.8 ??F (37.1 ??C) Physical Exam Physical Exam Vitals and nursing note reviewed. Constitutional: General: She is awake. She is not in acute distress. Appearance: She is ill-appearing. She is not toxic-appearing or diaphoretic. HENT: Head: Comments: Right hemicraniectomy surgical wound clean, no discharge or erythema Cardiovascular: Rate and Rhythm: Normal rate and regular rhythm. Pulses: Normal pulses. Heart sounds: Normal heart sounds. No murmur heard. No friction rub. No gallop. Pulmonary: Effort: Pulmonary effort is normal. No respiratory distress. Breath sounds: Normal breath sounds. No wheezing, rhonchi or rales. Chest: Breasts: Right: Normal. No mass. Left: Normal. No mass. Abdominal: General: Abdomen is flat. Bowel sounds are normal. There is no distension. Palpations: Abdomen is soft. Tenderness: There is no abdominal tenderness. Musculoskeletal: Right lower leg: No edema. Left lower leg: No edema. Neurological: Mental Status: She is disoriented and confused. Lines: right arm PIV, left antecubital PIV Lab Review CBC: Recent Labs Component Name 10/27/22 0054 10/26/22 0002 10/25/22 0007 10/23/22 0129 10/22/22 0153 WBC 19.5* 16.1* 16.6* - - RBC 2.60* 2.64* 2.65* - - HGB 8.0* 8.1* 8.2* - - HCT 24.6* 25.1* 25.1* - - MCV 94.6 95.1 94.7 - - PLT - - - - 199 - = values in this interval not displayed. BMP: Recent Labs Component Name 10/27/22 0054 10/26/22 0002 10/25/22 0007 10/20/22 0302 10/19/22 0824 06/15/22 0757 NA 138 139 140 - 139 138 CL 107 105 106 - 108* 107 CO2 - BUN 11 13 - 12 CREATININE 0.53* 0.54* 0.48* - 0.84 0.74 ALB - - - - 3.5 3.6 PROT - - - - 7.7 7.5 - = values in this interval not displayed. estimated creatinine clearance is 159.5 mL/min (A) (by C-G formula based on SCr of 0.53 mg/dL (L)). LFTs: Recent Labs Component Name 10/19/22 0824 06/15/22 0757 12/09/18 0812 07/25/18 2056 03/01/16 0817 02/18/16 1209 07/07/13 2319 ALKPHOS 52 44 56 52 111 - 55 ALT 16 9 17 12* 21 - 15 AST 19 17 18 20 25 - 10 ALBUMIN - - 4.5 4.3 2.5* - 3.8 LIPASE - - - - - - 157 - = values in this interval not displayed. Coagulation: Recent Labs Component Name 10/27/22 0608 10/27/22 0054 10/26/22 2112 10/26/22 0647 10/26/22 0426 10/25/22 21010/25/22 1641 PT 13.7 - - - 13.6 - 13.4 INR 1.1 - - - 1.0 - 1.0 PTT 58.6* 59.5* 65.0* - - - 24.8 - = values in this interval not displayed. Microbiology, Imaging and other diagnostic tests MICROBIOLOGY: Blood culture: 10/23 No growth 10/24 No growth ?? Other serologies: 10/23 MRSA DNA by PCR not detected 10/25 HIV Antigen/Antibody 1 & 2 non-reactive 10/25 Hepatitis C Antibody non-reactive HISTOPATHOLOGY: None at this admission IMAGING & PROCEDURES: I have independently reviewed all pertinent imaging data. Reports available in EMR. Assessment and Recommendations Aortic valve vegetation Rule out infective endocarditis SARAH done as part of ischemic stroke work up Patient was admitted as a code stroke, noted to have right MCA stroke, s/p TNK and revascularization by interventional neurology; course complicated by cerebral edema s/p right hemicraniectomy by neurosurgery ID consulted for IE rule out in the setting of vegetation Blood cultures in process Rheumatologic and hypercoagulable work up in process Etiologies at this time include NBTE versus IE At this time, epidemiologically and assessing risk factors, this likely represent non-infectious process although will need further work up Blood cultures in process Can obtain imaging with CT chest, abdomen, pelvis w contrast to assess other occult infectious process or septic phenomena or other etiologies such as underlying malignancy Given inability to entirely rule out infection at this time, we consider reasonable to start empiric antibiotics to cover at least Staphylococcus and Streptococcus Further work up pending this results ?? Cardio-embolic/ischemic stroke Unusual for a 41-year-old patient with no significant risk factors for CVA ?Underlying process Considering hypercoagulable state, either hereditary or in the setting of OCPs and migraine Neurology, cardiology, and rheumatology following ?? Renal Function Renal Function estimated creatinine clearance is 159.5 mL/min (A) (by C-G formula based on SCr of 0.53 mg/dL (L)). Plan/Recommendations Start doxycycline 100 mg oral every 12 hours (empiric for culture negative endocarditis) Continue vancomycin IV as per pharmacy protocol Continue ceftriaxone 2 g IV every 24 hours If/when thrombectomy done, please send sample for Gram stain, standard and anaerobe culture, fungalsmear and culture, AFB smear and culture, and tissue for histopathology and fungal stains Follow blood cultures until final Follow fungal blood culture Follow negative culture endocarditis work up Follow rheumatologic and hypercoagulable work up Will plan for 4 weeks of antibiotics for culture negative endocarditis -Can stop vancomycin once blood cultures are finalized -Plan for 4 weeks with ceftriaxone and doxycycline from start of treatment on 10/25/2022 with EOT on11/22/2022 Check CBC with auto diff and CMP weekly while on IV antibiotics They will need to follow up in the [facility] clinic; we will schedule appointment While on outpatient IV antibiotics, they will need weekly CBC with diff, CMP to monitor for adverseevents These labs will need to be faxed to [phone] (attention: Liam Parks MD) Infectious Disease will sign off of this patient. Please page us for any questions or concerns. If any additional cultures or infectious disease work up return positive, page us for additional recommendations. Thank you for allowing us to participate in the care of this patient. Patient seen, examined, and case/plan were discussed with my attending physician, Dr. Delacruz. Case discussed with primary team. Liam Parks MD (PGY-5) Infectious Diseases Fellow [facility] Pager: [phone] ID Clinic Associated attestation - Arturo Delacruz MD - 10/27/2022 9:38 PM CDT ID ATTENDING ATTESTATION I discussed this patient with the fellow and I agree with the findings and plan of care as documented by the fellow. Additionally, I interviewed and examined the patient myself and reviewed labwork, relevant imaging, and relevant history. I agree with the assessment and plan as detailed in the fellow note with the following modifications/additional thoughts. Briefly: We will follow for results from atypical/cx neg IE workup peripherally. Please contact ID if further concerns for infection. Please see fellow note for full details. I spent 35 minutes in the care of this patient today, including chart review, history gathering, interview & exam of the patient, medical decision making, and coordination of care. . Arturo Delacruz MD PhD Home Care Nurse [facility] Infectious Disease * JohanConsuelo - 10/27/2022 8:32 AM CDT Images from the original note were not included. Neurocritical Care Progress Note Consuelo Darby Age: [age] year old Date of : 1980 Date of Admission: 10/19/2022 Hospital Day: 8 Subjective History of Present Illness Consuelo Darby is a 41 year old female who developed acute L sided weakness, L sided sensory deficits, and dysarthria. L sided weakness resolved in route and dysarthria improved in route. On arrival,R gaze palsy and L hemianopsia. NIHSS:7. Pt was given TNK. TICI2b revascularization of R MCA M1 occlusion.?? ICU Timeline: Consuelo Darby is a 41 year old female who developed acute L sided weakness, L sided sensory deficits, and dysarthria. L sided weakness resolved in route and dysarthria improved in route. On arrival,R gaze palsy and L hemianopsia. NIHSS:7. Pt was given TNK. TICI2b revascularization of R MCA M1 occlusion.?? Interval History: 10/23 - LEONCIO and ICP monitor removed 10/23 - SARAH showed 6x7 independently mobile mass on left coronary cusp.??CT cardio angio on 10/24 favored vegetation, rather than fibrosed hemangioma. 10/24 -??Extubated 10/24 - Started on vanc and ceftriaxone 10/25 - Started on heparin (PTT goal of 60-80) Objective BP 140/73 Pulse 88 Temp 97.5 ??F (36.4 ??C) Resp 19 Ht 1.626 m (5' 4 ) Wt 95.3 kg (210 lb) SpO2 99% Temp (30hrs) Max:98.8 ??F (37.1 ??C) Body mass index is 36.05 kg/m??. Exam - General Con - NAD, afebrile Heent -??L scalp surgical site w/ carla, soft, pupils 3 mm bilaterally Neck - no masses, trachea midline CV - RRR, no chest wall tenderness Pulm -??O2 sat 97-100 on RA Abd - soft, lower abdomen hematoma from femoral site is improving?? Exam - Neurologic Surgical site of hemicraniectomy is clean, dry, intact, soft to palpation Pupils 3 mm and reactive bilaterally Able to open eyes Able to move RUE and RLE spontaneously?? Able to move LLE spontaneously Gait Deferred Labs: Lab Results-Last 24 Hours Procedure Component Value Units Date/Time BARTONELLA HENSELAE ANTIBODY IGM [[id number]] Order Status: Sent Specimen: Blood BARTONELLA HENSELAE ANTIBODY IGG [[id number]] Order Status: Sent Specimen: Blood Q FEVER IGG/IGM AB PANEL RFLX TITER [[id number]] Order Status: Sent Specimen: Blood CHLAMYDIA ANTIBODY IGG/IGM PANEL [[id number]] Order Status: Sent Specimen: Blood MYCOPLASMA PNEUMONIAE AB IGG [[id number]] Order Status: Sent Specimen: Blood MYCOPLASMA PNEUMONIAE AB IGM [[id number]] Order Status: Sent Specimen: Blood PTT [facility] [[id number]] Order Status: Sent Specimen: Blood GLUCOSE - POINT OF CARE [[id number]] (Abnormal) Collected: 10/27/2233 Order Status: Completed Specimen: Blood Updated: 10/27/22638 Glucose WB/POC 128 mg/dL Specimen Type Cap Fingerstick PTT [facility] [[id number]] (Abnormal) Collected: 10/27/22607 Order Status: Completed Specimen: Blood Updated: 10/27/22636 APTT 58.6 Seconds Comment: Suggested therapeutic range for full dose I.V. unfractionated heparin therapy for venous thromboembolism is 71 to 109 seconds. PT-INR [facility] [[id number]] (Normal) Collected: 10/27/22607 Order Status: Completed Specimen: Blood Updated: 10/27/22635 PT 13.7 Seconds INR 1.1 Comment: The suggested therapeutic range for standard coumadin (warfarin) therapy is an INR of 2.0-3.0. For high-risk patients (Mechanical Mitral Valve Prosthesis, etc.), the suggested prophylactic therapeutic range is an INR of 2.5-3.5. DIFFERENTIAL MANUAL [[id number]] (Abnormal) Collected: 10/27/22 0054 Order Status: Completed Specimen: Blood Updated: 10/27/22 0431 WBC (corrected for NRBC) 19.5 10??3/uL Total Cell Count 100 Neutrophils Absolute Manual 12.09 10??3/uL Comment: (BANDS+SEGS) x WBC = NEUT # (ANC) Lymphocyte Absolute Manual 5.07 10??3/uL Monocytes Absolute Manual 0.78 10??3/uL Eosinophils Absolute Manual 1.17 10??3/uL Neutrophil % Manual 62 % Lymphocyte % Manual 26 % Monocytes % Manual 4 % Eosinophils % Manual 6 % Metamyelocyte % Manual 1 % Myelocytes % Manual 1 % Platelet Estimate Increased Polychromasia Occasional Ovalocytes Occasional Ransom Cells Occasional Tear Drop Cells Occasional Smudge Cells Rare Large Platelet Count Occasional PHOSPHORUS BLOOD [[id number]] (Normal) Collected: 10/27/2253 Order Status: Completed Specimen: Blood Updated: 10/27/22127 Phosphorus 3.5 mg/dL MAGNESIUM BLOOD [[id number]] (Normal) Collected: 10/27/2253 Order Status: Completed Specimen: Blood Updated: 10/27/22127 Magnesium 2.0 mg/dL BASIC METABOLIC PANEL (CALCIUM TOTAL) [[id number]] (Abnormal) Collected: 10/27/2253 Order Status: Completed Specimen: Blood Updated: 10/27/22127 BUN 11 mg/dL Creatinine 0.53 mg/dL Sodium 138 mmol/L Potassium 3.5 mmol/L Chloride 107 mmol/L CO2 24 mmol/L Glucose 137 mg/dL Calcium 8.4 mg/dL Anion Gap 11 BUN/Creatinine Ratio 21 Osmolality Calculated 288 mOsm/kg eGFR by CKD-EPI >90 mL/min/1.73 m2 PTT [facility] [[id number]] (Abnormal) Collected: 10/27/2253 Order Status: Completed Specimen: Blood Updated: 10/27/22124 APTT 59.5 Seconds Comment: Suggested therapeutic range for full dose I.V. unfractionated heparin therapy for venous thromboembolism is 71 to 109 seconds. CBC W AUTO DIFFERENTIAL [[id number]] (Abnormal) Collected: 10/27/2253 Order Status: Completed Specimen: Blood Updated: 10/27/22122 WBC 19.5 10??3/uL RBC 2.60 10??6/uL Hemoglobin 8.0 g/dL Hematocrit 24.6 % MCV 94.6 fL MCH 30.8 pg MCHC 32.5 g/dL RDW-SD 45.8 fL RDW-CV 13.5 % Platelet Count 519 10??3/uL MPV 10.1 fL nRBC Absolute 0.08 10??3/uL nRBC Auto 0.4 /100 WBC PTT [facility] [[id number]] (Abnormal) Collected: 10/26/222111 Order Status: Completed Specimen: Blood Updated: 10/26/222145 APTT 65.0 Seconds Comment: Suggested therapeutic range for full dose I.V. unfractionated heparin therapy for venous thromboembolism is 71 to 109 seconds. GLUCOSE - POINT OF CARE [[id number]] (Abnormal) Collected: 10/26/221832 Order Status: Completed Specimen: Blood Updated: 10/26/22 183 Glucose WB/POC 122 mg/dL Specimen Type Cap Fingerstick FACTOR V LEIDEN MUTATION PANEL [[id number]] Collected: 10/21/22 0459 Order Status: Completed Specimen: Blood Updated: 10/26/22 1746 Factor V Leiden Source Whole Blood Factor V Leiden PCR/FRET Negative Comment: Indication for testing: Assess genetic risk for thrombosis. NEGATIVE: The factor V Leiden variant, c.1601G>A; p.Svo148Qms, was not detected. This does not exclude [...] function in the F5 gene variant c.1601G>A (p.Sio936Ble). Legacy nomenclature: [id number] (1691G>A) CLINICAL SENSITIVITY: 20-50 percent of individuals with an isolated VTE have the FVL variant. METHODOLOGY: Polymerase chain reaction and fluorescence monitoring. ANALYTICAL SENSITIVITY AND SPECIFICITY: 99 percent. LIMITATIONS: Diagnostic errors can occur due to rare sequence variations. F5 gene mutations, other than p.Yzs256Sup, will not be detected. This test was developed and its performance characteristics determined by [facility]. It has not been cleared or approved by the [place] Food and Drug Administration. This test was performed in a CLIA certified laboratory and is intended for clinical purposes. Counseling and informed consent are recommended for genetic testing. Consent forms are available online. Performed By: [facility] [address] [place] [id number] Microfilm Mounter: Boo Bond MD, PhD CLIA Number: [id number] PTT [facility] [[id number]] (Abnormal) Collected: 10/26/22 1559 Order Status: Completed Specimen: Blood Updated: 10/26/22 1635 APTT 52.9 Seconds Comment: Suggested therapeutic range for full dose I.V. unfractionated heparin therapy for venous thromboembolism is 71 to 109 seconds. GLUCOSE - POINT OF CARE [[id number]] (Abnormal) Collected: 10/26/22 1215 Order Status: Completed Specimen: Blood Updated: 10/26/22 1216 Glucose WB/POC 122 mg/dL Specimen Type Cap Fingerstick PTT [facility] [[id number]] Order Status: Canceled Specimen: Blood PTT [facility] [[id number]] (Abnormal) Collected: 10/26/22 1124 Order Status: Completed Specimen: Blood Updated: 10/26/22 1155 APTT 51.1 Seconds Comment: Suggested therapeutic range for full dose I.V. unfractionated heparin therapy for venous thromboembolism is 71 to 109 seconds. CARDIOLIPIN ANTIBODY IGA [[id number]] Collected: 10/23/222028 Order Status: Completed Specimen: Blood Updated: 10/26/22 1011 Cardiolipin Antibody IgA <10 APL Comment: INTERPRETIVE INFORMATION: Cardiolipin Antibodies, IgA <=11 APL: Negative 12-19 APL: Indeterminate 20-80 APL: Low to Moderately Positive 81 APL or above: High Positive Performed By: [facility] [address] [place] [address] Microfilm Mounter: Boo Bond MD, PhD CLIA Number: [id number] VANCOMYCIN LEVEL TROUGH [[id number]] (Normal) Collected: 10/26/22 0838 Order Status: Completed Specimen: Blood Updated: 10/26/22 0959 Vancomycin Trough 14.0 ug/mL Narrative: See institution protocol. Imaging: CT HEAD WO CONTRAST Result Date: 10/26/2022 IMPRESSION: 1. Redemonstration of evolving large right MCA territory acute to subacute infarct without definite evidence of hemorrhagic transformation. Unchanged minimal leftward midline shift of about 2 mm at the level of foramen of Monro and effacement of the left lateral ventricle. 2. Redemonstration of postsurgical changes from right-sided decompressive hemicraniectomy, unchanged compared to prior study. These results were discussed with stroke resident Dr Mendez by Dr. Miranda Bowen at8:05 AM on 10/26/2022 with read back confirmation and closed-loop communication. The report is dictated by Miranda Bowen MD (resident services coordinator) Oriana Ornelas MD have personally reviewed and interpreted this examination/study. > Interpreting Provider: Oriana Suarez MD on 38:[address] CHEST ABDOMEN PELVIS W CONT Result Date: 10/25/2022 Impression: 1.Occlusion of the right distal external [...] verification. > Dictated by Clarisa Cantrell MD (resident services coordinator). Alexx Ornelas have personally reviewed and interpreted this examination/study. > Interpreting Provider: Alexx Lopez on 10/25/2022 4:[address] HEAD WO CONTRAST Result Date: 10/25/2022 IMPRESSION: Redemonstrated postoperative changes consistent with right calvarial hemicraniectomy. Fluid collection overlying the lateral right cerebral hemisphere within the craniectomy defect containing some recent blood products. The overall size of this fluid collection is less than on previous study. In addition, there is less air/gas within this defect. Evolving large recent right cerebral hemisphere infarct with mass effect and approximately 2 mm of midline shift right to left. There appears to be slightly less mass effect and midline shift on today's study. Continued follow-up is recommended. Small recent cortical infarct in the lateral left frontal lobe as well as small recent infarc t in left martínez radiata which appears similar to previous study. Clinical correlation recommended.The report is dictated by Miranda Bowen MD (resident services coordinator) Joni Ornelas MD have personally reviewed and interpreted this examination/study. > Interpreting Provider: Joni Fabian MD on 10/25/2022 2:[address] CARDIAC ANGIO STRUCT MORPH Result Date: 10/25/2022 Impression: 1. 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 2. Patent coronary vessels within the limitation of the motion artifact given the elevated heart during this exam > Interpreting Provider: Pepe Gonzalez MD on 10/25/2022 12:03 AM MRI BRAIN WWO CONTRAST Result Date: 10/24/2022 IMPRESSION: 1.Redemonstration of postoperative changes of a right hemicraniectomy with expected postsurgical changes as outlined above. 2.Redemonstration of evolving large right MCA territory infarction with extensive cytotoxic edema and mild external herniation of the brain through the craniectomydefect. Persistent local mass effect on the right cerebral hemisphere, effacement of the right lateral ventricle, and approximately 3-4 mm [id number] midline shift, grossly similar to the prior. 3.Mild dilation of the left lateral ventricle may represent subtle left ventricular entrapment, overall grossly similar to prior. 4.Additional multiple foci of abnormal diffusion within the left frontotemporal lobes with associated T2 FLAIR hyperintensity representing additional small acute to subacute infarcts, likely of cardioembolic etiology. Findings communicated to Dr. Mohr by Dr. Major at 1138 hours on 10/24/2022 with readback comprehension and verification. Report dictated by Tim Major MD (resident services coordinator). Jasper Ornelas MD have personally reviewed and interpreted this examination/study. > Interpreting Provider: Jasper Sifuentes MD on 10/24/2022 1:[address] HEAD WO CONTRAST Result Date: 10/23/2022 IMPRESSION: 1.Redemonstration of postsurgical changes of decompressive craniectomy and evolving right middle cerebral artery territory infarct. 2.No hemorrhagic transformation. 3.Extensive cytotoxic edema and mass effect with approximately 2 mm midline shift, [place] similar or slightly improved from prior. 4.Stable right intracranial pressure monitor. The report is dictated by Miranda Bowen MD(resident services coordinator) Jasper Ornelas MD have personally reviewed and interpreted this examination/study. > Interpreting Provider: Jasper Sifuentes MD on 10/23/2022 9:[address] HEAD WO CONTRAST Result Date: 10/22/2022 IMPRESSION: 1.Redemonstration of postsurgical changes of decompressive right hemicraniectomy for evolving right middle cerebral artery territory infarct. There is significant edema and mass effect with approximately 4 mm of midline shift, unchanged from prior. No evidence of new acute intracranial hemorrhage. > Interpreting Provider: Lonnie Rae MD on 10/22/2022 3:[address] HEAD WO CONTRAST Result Date: 10/22/2022 IMPRESSION: 1.Stable appearance of postsurgical changes of decompressive right hemicraniectomy for evolving right middle cerebral artery territory infarct. There is significant edema and mass effect with approximately 4 mm of midline shift, unchanged from prior. No evidence of new acute intracranial hemorrhage. Report dictated by Lorenzo Horta MD (nursing resident). Lonnie Ornelas MD have personally reviewed and interpreted this examination/study. > Interpreting Provider: Lonnie Rae MD on 10/22/2022 3:[address] HEAD WO CONTRAST Result Date: 10/20/2022 IMPRESSION: Interval postsurgical changes of decompressive right hemicraniectomy with ICP monitor and subdural drain in place. 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 > Dictated by Bassam Jovel M.D. (nursing resident) Gonzalez Ornelas MD have personally reviewed and interpreted this examination/study. > Interpreting Provider: Gonzalez Velasco MD on 10/20/2022 11:[address] HEAD NON CONTRAST Result Date: 10/20/2022 IMPRESSION: Findings consistent with a large acute area of infarction in the right cerebral hemisphere in the distribution of the right middle cerebral artery with mass effect and approximately 4 mm of midline shift right to left. There is no definite hemorrhagic transformation. There is hyperdensity of the right middle cerebral artery likely representing thrombus. Clinical correlation and continued close interval follow-up are recommended. Results discussed with the stroke team physician, Dr. Stephanie Hester, on 20 October 2022 approximately 1225 hours. > Interpreting Provider: Joni Fabian MD on 10/20/2022 12:[address] ANGIO BRAIN NECK STROKE Result Date: 10/19/2022 IMPRESSION: 1. Occlusion of the distal M1 [...] Lonnie Rae MD on 10/19/2022 8:[address] BRAIN - Stroke Result Date: 10/19/2022 IMPRESSION: 1. No acute intracranial hemorrhage. 2. [...] Lonnie Rae MD on 10/19/2022 8:15 AM Hospital Problems on Admission: Right middle cerebral artery stroke (CMS/HCC) (POA: Unknown) Acute cerebrovascular accident (CVA) due to embolism of right middle cerebral artery (CMS/HCC) (POA: Yes) Nihss score 9 (POA: Yes) Received intravenous tissue plasminogen activator (tPA) in emergency department (POA: Yes) GERD (gastroesophageal reflux disease) (POA: Yes) Hemianopsia (POA: Yes) Weakness (POA: Yes) Left-sided sensory deficit present (POA: Yes) Gaze palsy (POA: Yes) Migraine (POA: Unknown) Hypertension (POA: Unknown) Assessment Consuelo Darby is a 41 year old female presenting for R sided gaze preference, L hemianopsia, L arm and L leg hemiparesis, and L extinction. CTA showed RMCA M1 occlusion. S/P TNK and MT with TICI 2B recanalization. S/P right decompressive hemicraniectomy. SARAH showed vegetation on aortic side of Lcoronary cusp. ?? Possible differentials include infective endocarditis, nonbacterial thrombotic endocarditis, and fibroelastoma. To workup IE, blood cultures have been sent and preliminary 24 hour read is no growth. Started vancand ceftriaxone empirically. Nonbacterial thrombotic endocarditis workup has been negative. Plan Neurological EVD open at 0: drained ICP: CPP: #??R MCA syndrome S/P TNK, mechanical thrombectomy, decompressive R hemicraniectomy? Plan: - Neurological checks??q1 - Pupillometer checks q1, recorded NPI - PTT checks q4 for goal of 60-80 -??Lipitor 80 daily - Head of bed > 30?? - Avoid hypoglycemia, hyponatremia, and hyperthermia ?? # Hx of migraines - continue verapamil 120 ?? Cardiovascular Pulse Min: 75 Max: 147, BP Min: 95/52 Max: 174/91 # 6x7 mm independently mobile mass on aortic side of L coronary cusp - Cardio will continue to follow ?? # Hx of HTN - continue metoprolol 25 BID? - Blood pressure goal: SBP<180, map>70 Respiratory weak cough reflex , difficulty bringing up secretions ?? - bronchial hygiene orders for 4 times daily - O2 sat 97-100 on RA - continue Robitussin - Aspiration precautions - Elevate head of bed - Maintain oxygen saturation > 92% - Monitor for respiratory distress Renal/Electrolytes Intake/Output Summary (Last 24 hours) at 10/27/2022 0832 Last data filed at 10/27/2022 0600 Gross per 24 hour Intake 1162 ml Output 2450 ml Net -1288 ml # urinary retention ?? - Puentes catheter placed 10/26?? - Monitor intake and output - Replete electrolytes as needed Infectious Disease Temp (24hrs), Av.1 ??F (36.7 ??C), Min:97.1 ??F (36.2 ??C), Max:98.8 ??F (37.1 ??C) - ID is following for possible IE etiology - continue vanc and ceftriaxone - Monitor for fevers - Ramirez culture if febrile Gastrointestinal # Hx of GERD? 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 -??monitor for stress hyperglycemia?? - Accuchecks + SSI Hematology Recent Labs Component Name 10/27/22 0054 WBC 19.5* HGB 8.0* HCT 24.6* PLTCOUNT 519* PLATELET Occasional* #Leukocytosis - continue to monitor, likely reactive to post sonya ?? # Normocytic anemia - 8.0 from??8.2??yesterday - transfuse if Hgb < 7 ? Workup for hypercoagulabilities: SARAH negative, noncontributory protein C and S, lupus anticoag, cardiolipin, beta 2 glucoprotein antibodies?? DVT ppx: heparin Musculoskeletal No active issues Disposition - PT/OT will continue to follow - helmet ordered prior to getting out of bed Feeds/Fluids:??NG tube?? Analgesia:??tylenol PRN Sedation:??none Thromboprophylaxis: heparin HOB:??>30 degrees Ulcer Ppx:??Prevacid 30?? Glucose:??wnl HOB: >30 SBT:??n/a, extubated BR:??senna, miralax Indwelling lines:??PIV x2 De-escalation: continue ICU?? Family:??updated at bedside? Consuelo Kyle Prado Medical Student, MS3 [facility]. * Emir Vail MD - 10/27/2022 7:54 AM CDT Images from the original note were not included. I have seen and examined the patient with the resident and I agree with the findings and plan of care as documented by the resident. Date of Service: 10/27/2022 Emir Vail MD Multidisciplinary rounds were held at 9am and the patient's care and recovery plan were reviewed and developed with the assembled team. Consuelo Darby is a 41 year old 41 year old??with GERD, tobacco, presented on 10/19 with Right MCA syndrome s/p TNK. CTA 1 M1 occlusion. S/P mechanical thrombectomy with R M1 recanalization and TICI2b. CT 10/20/22 with edema and mildshift. On exam, lid apraxia and following briskly on right; slight LLE movement. Hx of OCP use. S/Pdecompressive right hemicraniectomy. Echo showed a mobile aortic valve vegetation. Mechanism of infarct is the aortic valve vegetation of unknown etiology. Possibilities include infectious, autoimmune, aortic valve fibroelastoma. Cardiac CT was obtained to further characterize the lesion and showed a 6 mm lesion favored to represent a vegetation rather than a fibrosed hemangioma. CTA head/neck was reviewed with neuro-radiology and neuro-IR. There is question of two small focal outpouchings of the left A4 segment and left MCA. Although the vascular abnormalities present on CTAare more proximal and likely represent a small aneurysm, the possibility of associated mycotic aneurysms cannot be excluded. ID consult placed for evaluation and input and recommended broad spectrum ABx pending 48 hour bloodcultures. Blood cultures at 48 hours are negative Anticoagulation with heparin is reasonable although she has a sizable stroke and the risk of hemorrhage into this is present. Repeat CTH 10/27 remains stable. - Appreciate input consulting teams - Anticoagulation with heparin gtt. - Continue q1h neurological monitoring. - Repeat CT at 0400 daily or if neurologic decline - Contact neurology immediately if neurologic decline - On ASA and statin, can discontinue aspirin after starting heparin gtt - Follow rheumatologic and hypercoagulable work up - Continue ABx pending finalization of blood cultures - Vascular surgery following right femoral artery clot - In the investigation of the etiology of her valvular lesion CT of the abdomen and pelvis was donewhich reported occlusion of the R distal external iliac artery/common femoral artery. She remains asymptomatic and intact pulses. Vascular surgery was consulted for input The case and plan was discussed extensively with the family who agreed with the plan and verbalizedtheir understanding of the potential risks and benefits. Problem List Right middle cerebral artery stroke (CMS/HCC) (POA: Unknown) Acute cerebrovascular accident (CVA) due to embolism of right middle cerebral artery (CMS/HCC) (POA: Yes) Nihss score 9 (POA: Yes) Received intravenous tissue plasminogen activator (tPA) in emergency department (POA: Yes) GERD (gastroesophageal reflux disease) (POA: Yes) Hemianopsia (POA: Yes) Weakness (POA: Yes) Left-sided sensory deficit present (POA: Yes) Gaze palsy (POA: Yes) Migraine (POA: Unknown) Hypertension (POA: Unknown) See Resident note for the remaining problem specific plan. 8 MEDICATIONS FOR CURRENT ENCOUNTER: SCHEDULED MEDICATIONS: *Hold/Avoid Medication, Other, 0800 and 2000 *Hold/Avoid Medication, Other, DIRECTED 0.9% NaCl injection 3 mL, Intracatheter, q8h 0.9% NaCl injection 3 mL, Intracatheter, q8h atorvastatin (Lipitor) tablet 80 mg, Enteral Tube, AT BEDTIME cefTRIAXone (Rocephin) 2,000 mg in 0.9% NaCl IV 50 mL IVPB, Intravenous, q12h guaiFENesin (Robitussin) solution 10 mL, Enteral Tube, q12h iopamidol (Isovue 370) 76 % contrast, Intravenous, Contrast - Once lansoprazole (Prevacid) suspension 30 mg, Enteral Tube, QDAY BEFORE BREAKFAST loratadine (Claritin) tablet 10 mg, Enteral Tube, QDAY metoprolol tartrate IR (Lopressor) tablet 25 mg, Enteral Tube, q12h polyethylene glycol 3350 (Miralax) packet 17 g, Enteral Tube, QDAY senna-docusate (Senokot-S) tablet 1 tablet, Enteral Tube, QDAY tamsulosin (Flomax) capsule 0.4 mg, Enteral Tube, QDAY vancomycin (Vancocin) 1,500 mg in 500 mL NaCl IVPB Premix, Intravenous, q8h vancomycin (Vancocin) IV dose per pharmacy, Does not apply, DIRECTED verapamil (Isoptin) tablet 40 mg, Enteral Tube, q8h vitamin D3 (Cholecalciferol) 25 MCG (1000 UNITS) tablet 2,000 Units, Enteral Tube, QDAY [COMPLETED] magnesium sulfate 1 g in 100 mL bolus, Intravenous, Once [COMPLETED] potassium chloride (Klor-Con) packet 40 mEq, Enteral Tube, Once ?? [] gadobutrol (Gadavist) injection, Intravenous, Contrast - Once CONTINUOUS MEDICATIONS: ?? heparin 100 units/mL in dextrose 5 % infusion, Intravenous, Continuous PRN MEDICATIONS: Or 0.9% NaCl injection 1-10 mL, Intracatheter, PRN 0.9% NaCl injection 3 mL, Intracatheter, PRN acetaminophen (Tylenol) tablet 500 mg, Enteral Tube, q4h PRN dextrose 10 % IV bolus, Intravenous, PRN dextrose 10 % IV bolus, Intravenous, PRN diphenhydrAMINE-zinc acetate (Benadryl Extra Strength) 2-0.1 % cream, Topical, PRN glucagon (Glucagen) injection 1 mg, Subcutaneous, PRN glucose (Diabetic Use) (Dex4 Glucose) oral liquid, Oral, PRN glucose (Diabetic Use) oral gel, Oral, PRN glucose chew tablet 4 tablet, Oral, PRN ?? oxymetazoline (Afrin) 0.05 % nasal spray 2 spray, Each Nostril, BID PRN Patient Vitals for the past 24 hrs: Temp Pulse Resp BP 10/27/22 0700 -- 88 19 140/73 10/27/22 0600 97.5 ??F (36.4 ??C) 93 18 140/88 10/27/22 0500 -- 96 17 144/80 10/27/22 0400 98 ??F (36.7 ??C) 80 17 143/46 10/27/22 0300 -- 105 18 151/79 10/27/22 0200 98.4 ??F (36.9 ??C) 103 20 133/76 10/27/22 0100 -- 96 20 129/94 10/27/22 0000 98 ??F (36.7 ??C) 89 19 133/73 10/26/22 2300 -- 85 19 111/77 10/26/22 2200 98 ??F (36.7 ??C) 88 20 122/64 10/26/22 2100 -- 88 18 110/63 10/26/22 2000 97.1 ??F (36.2 ??C) 100 20 150/70 10/26/22 1800 98.8 ??F (37.1 ??C) 108 23 138/70 10/26/22 1700 -- (!) 118 24 150/91 10/26/22 1600 98.7 ??F (37.1 ??C) 103 23 147/83 10/26/22 1500 -- 105 21 129/73 10/26/22 1400 98.8 ??F (37.1 ??C) 104 19 126/58 10/26/22 1300 -- 97 19 114/70 10/26/22 1200 97.6 ??F (36.4 ??C) 92 20 116/66 10/26/22 1100 -- 86 20 108/62 10/26/22 1000 98 ??F (36.7 ??C) 101 24 118/69 10/26/22 0900 -- 95 16 113/72 10/26/22 0800 97.6 ??F (36.4 ??C) 88 18 119/80 Recent Labs Component Name 10/27/22 0054 10/26/22 0002 10/25/22 0007 NA 138 139 140 CL 107 105 106 CO2 24 24 25 BUN 11 13 16 CREATININE 0.53* 0.54* 0.48* CALCIUM 8.4 8.4 9.0 PHOS 3.5 3.5 3.7 Recent Labs Component Name 10/27/22 0054 10/26/22 0002 10/25/22 0007 10/23/22 0129 10/22/22 0153 WBC 19.5* 16.1* 16.6* - - RBC 2.60* 2.64* 2.65* - - HGB 8.0* 8.1* 8.2* - - HCT 24.6* 25.1* 25.1* - - PLT - - - - 199 - = values in this interval not displayed. Recent Labs Component Name 10/20/22 0302 06/15/22 0757 CHOL 173 204* TRIG 201* 251* HDL 42 37* LDLCALC 91 117* Recent Labs Component Name 10/20/22 1015 HGBA1C 6.0* EAG 126 Recent Labs Component Name 10/27/22 0054 10/26/22 0002 10/25/22 0007 PLTCOUNT 519* 446* 402* PLATELET Occasional* - - * Nnamdi Blue MD - 10/27/2022 6:57 AM CDT Images from the original note were not included. VASCULAR SURGERY PROGRESS NOTE ADMIT: 10/19/2022 7:53 AM LOS: 8 days 7 Days Post-Op 10/27/2022 HISTORY: This is a 41 year old female with a h/o R MCA stroke admitted 10/19 for R femoral access + suction thrombectomy + 8F angioseal closure; hemicraniectomy by NSGY 10/20, who presents as a consultfor occlusion identified on CT scan performed 10/25/22. She is currently in the neuro ICU for recovery and is also being evaluated by cardiac surgery for a aortic valve vegetation concerning for endocarditis vs fibroelastoma. Vascular surgery consulted for iatrogenic vascular injury of the external iliac artery. She currently does not have signs of acute limb ischemia and is motor/sensory intact with a multiphasic DP signal present. ?? Procedures: None Vascular Surgery History None SUBJECTIVE: No acute events overnight. Patient denies any new onset of pain in her lower extremities or groin. Patient is afebrile and hemodynamically stable. OBJECTIVE: Blood pressure 140/88, pulse 93, temperature 97.5 ??F (36.4 ??C), resp. rate 18, height 1.626 m (5'4 ), weight 95.3 kg (210 lb), last menstrual period 02/01/2022, SpO2 98 %, not currently . Temp: [97.1 ??F (36.2 ??C)-98.8 ??F (37.1 ??C)] 97.5 ??F (36.4 ??C) Pulse: [80-118] 93 Resp: [16-24] 18 BP: (108-151)/(46-94) 140/88 DIET: DIET NPO Except: NO EXCEPTIONS DIET TUBE FEEDING CONTINUOUS Ins/Outs: 10/26 0701 - 10/27 0700 In: 1192 Out: 1999 [Urine:1999] Scheduled Medications: ??? *Hold/Avoid Medication Other DIRECTED ??? *Hold/Avoid Medication Other 799 and 1999 ??? 0.9% NaCl 3 mL Intracatheter q8h ??? 0.9% NaCl 3 mL Intracatheter q8h ??? atorvastatin 80 mg Enteral Tube AT BEDTIME ??? cefTRIAXone 2 g Intravenous q12h ??? guaiFENesin 10 mL Enteral Tube q12h ??? iopamidol Intravenous Contrast - Once ??? lansoprazole 30 mg Enteral Tube QDAY BEFORE BREAKFAST ??? loratadine 10 mg Enteral Tube QDAY ??? metoprolol tartrate IR 25 mg Enteral Tube q12h ??? polyethylene glycol 3350 17 g Enteral Tube QDAY ??? senna-docusate 1 tablet Enteral Tube QDAY ??? tamsulosin 0.4 mg Enteral Tube QDAY ??? vancomycin 1,500 mg Intravenous q8h ??? vancomycin (VANCOCIN) IV dose per pharmacy Does not apply DIRECTED ??? verapamil 40 mg Enteral Tube q8h ??? Vitamin D3 (cholecalciferol) 2,000 Units Enteral Tube QDAY Continuous Medications: heparin, 500-2,150 Units/hr, Last Rate: 1,900 Units/hr (10/27/22 0650) PRN Medications: 0.9% NaCl, 1-10 mL, PRN 0.9% NaCl, 3 mL, PRN acetaminophen, 500 mg, q4h PRN dextrose IV for hypoglycemia, 12.5 g, PRN Or dextrose IV for hypoglycemia, 25 g, PRN diphenhydrAMINE-zinc acetate, , PRN glucagon, 1 mg, PRN glucose (Diabetic Use), , PRN glucose (Diabetic Use) gel, , PRN glucose chew tab, 16 g, PRN oxymetazoline, 2 spray, BID PRN Physical Exam Gen: NAD ENT: Hemicraniectomy incision appears c/d/i. NG in place. Resp: NLR CV: RRR Abd: Soft, Non-distended and Non-peritoneal, no rebound/guarding MSK: Both lower extremities are WWP, motor/sensory intact. No pallor or cyanosis. Bruising to the Rgroin region Vasc: RLE: multiphasic DP signal; faint PT signal; unable to palpate femoral with faint signal identified LLE: palpable DP, PT pulses Neuro: follows commands RECENT LABS: Recent Labs Component Name 10/27/22 0054 10/26/22 0002 10/25/22 0007 10/23/22 0129 10/22/22 0153 WBC 19.5* 16.1* 16.6* - - HGB 8.0* 8.1* 8.2* - - HCT 24.6* 25.1* 25.1* - - MCV 94.6 95.1 94.7 - - PLT - - - - 199 - = values in this interval not displayed. Recent Labs Component Name 10/27/22 0054 10/26/22 0002 10/25/22 0007 NA 138 139 140 POTASSIUM 3.5 3.3* 4.0 CL 107 105 106 CO2 24 24 25 BUN 11 13 16 CREATININE 0.53* 0.54* 0.48* CALCIUM 8.4 8.4 9.0 MAGNESIUM 2.0 1.9 2.1 PHOS 3.5 3.5 3.7 Recent Labs Component Name 10/19/22 0824 06/15/22 0757 12/09/18 0812 PROT 7.7 7.5 - ALB 3.5 3.6 - TBILI 0.1* 0.1* - AST 19 17 18 ALT 16 9 17 ALKPHOS 52 44 56 Recent Labs Component Name 10/27/22 0608 10/27/22 0054 10/26/22 2112 10/26/22 0647 10/26/22 0426 10/25/22 2102 10/25/22 1641 INR 1.1 - - - 1.0 - 1.0 PTT 58.6* 59.5* 65.0* - - - 24.8 - = values in this interval not displayed. RECENT IMAGING: CT HEAD WO CONTRAST Result Date: 10/26/2022 IMPRESSION: 1. Redemonstration of evolving large right MCA territory acute to subacute infarct without definite evidence of hemorrhagic transformation. Unchanged minimal leftward midline shift of about 2 mm at the level of foramen of Monro and effacement of the left lateral ventricle. 2. Redemonstration of postsurgical changes from right-sided decompressive hemicraniectomy, unchanged compared to prior study. These results were discussed with stroke resident Dr Mendez by Dr. Miranda Bowen at8:05 AM on 10/26/2022 with read back confirmation and closed-loop communication. The report is dictated by Miranda Bowen MD (resident services coordinator) I, Oriana Suarez MD have personally reviewed and interpreted this examination/study. > Interpreting Provider: Oriana Suarez MD on 8/17/41667:[address] CHEST ABDOMEN PELVIS W CONT Result Date: 10/25/2022 Impression: 1.Occlusion of the right distal external [...] verification. > Dictated by Clarisa Cantrell MD (resident services coordinator). IAlexx have personally reviewed and interpreted this examination/study. > Interpreting Provider: Alexx Lopez on 10/25/2022 4:[address] HEAD WO CONTRAST Result Date: 10/25/2022 IMPRESSION: Redemonstrated postoperative changes consistent with right calvarial hemicraniectomy. Fluid collection overlying the lateral right cerebral hemisphere within the craniectomy defect containing some recent blood products. The overall size of this fluid collection is less than on previous study. In addition, there is less air/gas within this defect. Evolving large recent right cerebral hemisphere infarct with mass effect and approximately 2 mm of midline shift right to left. There appears to be slightly less mass effect and midline shift on today's study. Continued follow-up is recommended. Small recent cortical infarct in the lateral left frontal lobe as well as small recent infarc t in left martínez radiata which appears similar to previous study. Clinical correlation recommended.The report is dictated by Miranda Bowen MD (resident services coordinator) Joni Ornelas MD have personally reviewed and interpreted this examination/study. > Interpreting Provider: Joni Fabian MD on 10/25/2022 2:51 PM MRI BRAIN WWO CONTRAST Result Date: 10/24/2022 IMPRESSION: 1.Redemonstration of postoperative changes of a right hemicraniectomy with expected postsurgical changes as outlined above. 2.Redemonstration of evolving large right MCA territory infarction with extensive cytotoxic edema and mild external herniation of the brain through the craniectomydefect. Persistent local mass effect on the right cerebral hemisphere, effacement of the right lateral ventricle, and approximately 3-4 mm [id number] midline shift, grossly similar to the prior. 3.Mild dilation of the left lateral ventricle may represent subtle left ventricular entrapment, overall grossly similar to prior. 4.Additional multiple foci of abnormal diffusion within the left frontotemporal lobes with associated T2 FLAIR hyperintensity representing additional small acute to subacute infarcts, likely of cardioembolic etiology. Findings communicated to Dr. Mohr by Dr. Major at 1138 hours on 10/24/2022 with readback comprehension and verification. Report dictated by Tim Major MD (resident services coordinator). I, Jasper Sifuentes MD have personally reviewed and interpreted this examination/study. > Interpreting Provider: Jasper Sifuentes MD on 10/24/2022 1:59 PM ASSESSMENT: Consuelo Darby is a 41 year old female with a h/o recent R MCA M1 stroke s/p R femoral access for MCA thrombectomy and cerebral angiogram with 8F angioseal closure on 10/19 who presents as a consult for occlusion of the R EIA + proximal EXTRUDING PRESS ADJUSTER extending into the profunda with reconstitution identified on CT scan 10/25. Per review of angio images, stick appears to be high and correlates with location of occlusion - highly suspicious for iatrogenic vascular injury of the external iliac artery. She currently does not have signs of acute limb ischemia and is motor/sensory intact with a multiphasic DP signal present. Anticoagulation/Antiplatelet: Heparin gtt Antibiotics: rocephin and vancomycin Vascular Surgery High Risk Variables: None PLAN: - ABIs order will f/u with results - frequent neurovascular checks - q1h - please call vascular surgery immediately if any ischemic changes present in the RLE - Patient tentatively scheduled for OR on 10/30 for right femoral cutdown, thrombectomy, angiogram with possible intervention, possible vein harvest. Please make NPO sips with meds the midnight prior. - Consent to be obtained, site to be marked day of - CHG bath the night prior - Please hold heparin when patient rolls down to pre-op Patient will be staffed with attending, Dr. Clay. Note to be updated with any changes. * Deyanira Richard RN - 10/26/2022 9:27 PM CDT Problem: ELOPEMENT/ABDUCTION Goal: Risk for elopement &/or abduction during hospitalization is minimized Outcome: Progressing Problem: Safety related to restraint use Goal: Absence of injury while restrained Outcome: Progressing Problem: Fall Risk Goal: Fall risk and fall related injury risk are minimized (interventions related to the fall risk can be found in the flowsheet documentation) Outcome: Progressing Problem: Skin Integrity Goal: Skin integrity is maintained or improved Outcome: Progressing Problem: Pain/Discomfort Goal: Patient exhibits reduced pain/discomfort as evidenced by pain scores Outcome: Progressing Goal: Patient uses pharmacological and non-pharmacological pain management strategies. Outcome: Progressing Goal: Patient verbalizes acceptable level of pain relief and ability to engage in desired activity. Outcome: Progressing Problem: Neurological Deficit Goal: Neurological status is stable or improving Outcome: Progressing Problem: Hemodynamic Status/Cardiac Output Goal: Patient has stable vital signs and fluid balance Outcome: Progressing Problem: Oxygenation/Respiratory Function Goal: Respiratory rate/effort will be within specified limits Outcome: Progressing Problem: Mobility Goal: Patient's mobility/activity will be maintained as optimum level for age, diagnosis and physical limitations Outcome: Progressing Goal: Continuum of care needs are further met through referral to outpatient services when appropriate. Outcome: Progressing Goal: Patient reports the ability to perform Activities of Daily Living. Outcome: Progressing Problem: Communication Impairment/Dysarthria Goal: Ability to express needs and understand communication Outcome: Progressing Problem: Nutrition Goal: Nutritional status is improving Outcome: Progressing Problem: Aspiration Precautions Goal: Patient's risk of aspiration is minimized Outcome: Progressing Problem: Glycemic Control Goal: Clinical indication of glycemia balance is achieved Outcome: Progressing Problem: Knowledge Deficit,Education,Discharge Plan Goal: The patient/family will understand cerebrovascular disease and its symptoms, treatment and management Outcome: Progressing Problem: Oral Intake: Inadequate oral intake Goal: Total intake will meet estimated nutrient needs Outcome: Progressing Problem: Swallowing Goal: LTG - Patient will tolerate the least restrictive diet consistency to allow for safe consumption of daily meals Outcome: Progressing Problem: Transfers Goal: STG - Transfer from bed to chair Outcome: Progressing Problem: Risk for Violence: Self-Directed or Other Directed Description: Diagnosis: Risk for self-directed Violence or Risk for Directed Violence Risk Factors: Biochemical/neurologic imbalances, impulsivity, manic excitement, psychotic symptomatology, rage reaction, restlessness Possibly Evidenced By: agitated behaviors, delusional thinking, hallucinations, loud/threatening/profane speech, poor impulse control, provocative behaviors, verbal threats against others, verbal threats against self Goal: Patient will verbalize control of feelings. Outcome: Progressing Goal: Patient will respond to interventions when potential or actual loss of control occurs. Outcome: Progressing Goal: Patient will refrain from provoking others to physical harm. Outcome: Progressing Goal: Patient will display nonviolent behaviors toward others in the hospital, with the aid of medications and nursing interventions. Outcome: Progressing Goal: Patient will seek help when experiencing aggressive impulses. Outcome: Progressing Goal: Patient will refrain from verbal threats and loud, profrane language toward others. Outcome: Progressing Goal: Patient will be safe and free from injury. Outcome: Progressing * Josue Castellanos MD - 10/26/2022 1:54 PM CDT Rheumatology Inpatient Consultation Note Patient: Consuelo Darby ( , 1980, 41 year old female) Encounter Date: 10/19/2022 Consult requested by: Dr. Emir Vail Primary service: Stroke Team ?? Reason for Admission: Stroke with Right M1 occlusion Reason for Consultation: Concern for Non bacterial thrombotic endocarditis. Subjective Interval history: - extubated to 2L NC - one time febrile to 100.2 F yesterday Review of Systems: Other systems reviewed and negative or noncontributory except as stated in the HPI. Home Medications: No current outpatient medications on file. Adverse Drug Reactions: Allergies Allergen Reactions ??? 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 Covid Pfizer primary monovalent 12+ yr 0.3mL Purple cap 03/03/2020, 03/25/2020 ??? INFLUENZA 01/06/2013, 12/11/2015, 12/13/2018, 12/15/2019, 12/13/2020, 12/10/2021 ??? PPD 10/13/2020 ??? TDAP 12/21/2015 Social History: Social History Socioeconomic History ??? Marital status: Occupational History ??? 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 Smoking status: Former Packs/day: 0.50 Types: Cigarettes Quit date: 2014 Years since quittin.6 ??? Smokeless tobacco: Never Vaping Use ??? Vaping Use: Never used Substance and Sexual Activity ??? Alcohol use: No Alcohol/week: 0.0 - 1.7 standard drinks of alcohol Comment: Occasional ??? Drug use: No ??? Sexual activity: Yes Partners: Male control/protection: Pill Other Topics Concern ??? Special Diet No Family History: Family History Problem Relation Name Age of Onset ??? Cancer Maternal Grandfather Lung ??? Diabetes Maternal Grandfather ??? Diabetes Maternal Grandmother ??? Hypertension Mother ??? Thyroid Disease Mother Patient Care Team: Yvan Booth MD Patient Care Team: Yvan Booth MD as PCP - General Jean Joy MD as PCP - Jaden Garcia DO as PCP - Attributed-[facility] [facility] STL Objective Physical Exam BP 114/70 Pulse 97 Temp 97.6 ??F (36.4 ??C) (Axillary) Resp 19 Ht 1.626 m (5' 4 ) Wt 95.3kg (210 lb) LMP 02/01/2022 (Approximate) SpO2 95% No BMI 36.05 kg/m?? GENERAL: NAD HEENT/NECK: Right eye swelling improved. CHEST/LUNGS: Normal work of breathing, CTAB. CARDIOVASCULAR: Regular rhythm, crisp S1/S2. No ASCENCION. ABDOMEN: S/ND/NT. SKIN/NAILS: hemicraniectomy scar present. PSYCH: Alert, appropriately interactive. NEURO: Following commands. Good hand membership manager bilaterally. MSK: No synovitis, dactylitis, or enthesitis. Labs: Reviewed, including those as noted below Results for orders placed or performed during the hospital encounter of 10/19/22 (from the past 2352 hour(s)) GLUCOSE - POINT OF CARE Result Value Ref Range Glucose WB/POC 105 70 - 115 mg/dL Specimen Type Cap Fingerstick CREATININE - POCT INTERFACED Result Value Ref Range Creatinine POCT 0.78 0.30 - 1.30 mg/dL eGFR >90 >90 mL/min/1.73 m2 INR WHOLE BLOOD - POINT OF CARE (IP) STROKE Result Value Ref Range INR 0.9 0.9 - 1.2 Device [id number] [place] [id number] EKG 12-LEAD Result Value Ref Range Ventricular Rate 129 BPM Atrial Rate 129 BPM P-R Interval 134 ms QRS Duration ms 90 ms Q-T Interval ms 318 ms QTC Calculation (Bezet) 465 ms Calculated P [place] 55 degrees Calculated R Matlock 13 degrees Calculated T Matlock 5 degrees Interpretation EKG SINUS TACHYCARDIA OTHERWISE NORMAL ECG NO PREVIOUS ECGS AVAILABLE Confirmed by FLORA OTT MD ([id number]) on 10/19/2022 5:38:23 PM CBC W AUTO DIFFERENTIAL Result Value Ref Range WBC 10.9 (H) 3.5 - 10.5 10??3/uL RBC 4.73 3.80 - 5.20 10??6/uL Hemoglobin 14.4 12.0 - 15.6 g/dL Hematocrit 42.6 35.0 - 45.0 % MCV 90.1 80.7 - 98.3 fL MCH 30.4 26.7 - 34.0 pg MCHC 33.8 30.8 - 35.9 g/dL RDW-SD 43.4 36.0 - 50.0 fL RDW-CV 13.1 11.2 - 14.8 % Platelet Count 342 150 - 400 10??3/uL MPV 10.4 9.4 - 12.9 fL nRBC Absolute 0.00 0 10??3/uL nRBC Auto 0.0 0 /100 WBC Neutrophils % 67.3 35.0 - 70.0 % Lymphocytes % 23.9 20.0 - 43.0 % Monocytes % 6.4 5.0 - 13.0 % Eosinophils % 1.4 0.0 - 6.0 % Basophil % 0.6 0.0 - 2.0 % Neutrophils Absolute 7.33 (H) 1.60 - 7.00 10??3/uL Lymphocyte Absolute 2.61 1.10 - 3.90 10??3/uL Monocytes Absolute 0.70 0.26 - 1.07 10??3/uL Eosinophils Absolute 0.15 0.00 - 0.47 10??3/uL Basophils Absolute 0.07 0.00 - 0.08 10??3/uL Immature Granulocytes % 0.4 0.0 - 1.0 % Immature Granulocytes Absolute 0.04 COMPREHENSIVE METABOLIC PANEL Result Value Ref Range BUN 13 7 - 26 mg/dL Creatinine 0.84 0.56 - 0.96 mg/dL Sodium 139 136 - 145 mmol/L Potassium 4.2 3.5 - 4.5 mmol/L Chloride 108 (H) 98 - 107 mmol/L CO2 21 (L) 22 - 29 mmol/L Glucose 109 70 - 115 mg/dL Calcium 8.9 8.4 - 10.2 mg/dL Protein Total 7.7 6.0 - 8.3 g/dL Albumin 3.5 3.4 - 5.0 g/dL Bilirubin Total 0.1 (L) 0.2 - 1.2 mg/dL Alkaline Phosphatase 52 40 - 150 U/L ALT 16 5 - 55 U/L AST 19 5 - 34 U/L Anion Gap 14 8 - 18 BUN/Creatinine Ratio 15 7 - 23 Osmolality Calculated 289 270 - 300 mOsm/kg Albumin/Globulin Ratio 0.8 (L) 1.1 - 2.3 eGFR by CKD-EPI >90 >=90 mL/min/1.73 m2 PT-INR [facility] Result Value Ref Range PT 12.3 12.1 - 14.8 Seconds INR 0.9 See Comment TYPE + SCREEN PANEL Result Value Ref Range Antibody Screen NEG ABO Rh B POS HCG URINE QUALITATIVE Result Value Ref Range Test Urine Negative Negative URINE DRUG SCREEN IMMUNOASSAY Result Value Ref Range Amphetamines Screen Urine Negative Negative: < 1000 ng/mL Barbiturates Screen Urine Negative Negative: < 200 ng/mL Benzodiazepine Screen Urine Negative Negative: < 200 ng/mL Opiates Urine Negative Negative: < 300 ng/mL Cocaine Metabolites Urine Negative Negative: < 300 ng/mL Phencyclidine Screen Urine Negative Negative: < 25 ng/ml Cannabinoids Screen Urine Negative Negative: <50 ng/mL Methadone Screen Urine Negative Negative: < 300 ng/mL Fentanyl Screen Urine Negative Negative: <1.5 ng/mL GLUCOSE - POINT OF CARE Result Value Ref Range Glucose WB/POC 140 (H) 70 - 115 mg/dL Specimen Type Cap Fingerstick PROTEIN C ACTIVITY Result Value Ref Range Protein C Activity 150 83 - 168 % PROTEIN S ACTIVITY Result Value Ref Range Protein S Activity 134 (H) 57 - 131 % LUPUS ANTICOAGULANT PANEL Result Value Ref Range APTT 24.4 23.0 - 38.4 Seconds PT 13.6 12.1 - 14.8 Seconds INR 1.1 See Comment [facility] Buffer 37.8 Seconds [facility] Phospholipid 33.2 Seconds [facility] Delta 4.6 <8.0 Seconds Interpretation [facility] Negative BASIC METABOLIC PANEL (CALCIUM TOTAL) Result Value Ref Range BUN 6 (L) 7 - 26 mg/dL Creatinine 0.50 (L) 0.56 - 0.96 mg/dL Sodium 138 136 - 145 mmol/L Potassium 3.6 3.5 - 4.5 mmol/L Chloride 108 (H) 98 - 107 mmol/L CO2 21 (L) 22 - 29 mmol/L Glucose 140 (H) 70 - 115 mg/dL Calcium 8.2 (L) 8.4 - 10.2 mg/dL Anion Gap 13 8 - 18 BUN/Creatinine Ratio 12 7 - 23 Osmolality Calculated 286 270 - 300 mOsm/kg eGFR by CKD-EPI >90 >=90 mL/min/1.73 m2 CBC W/O DIFFERENTIAL Result Value Ref Range WBC 19.5 (H) 3.5 - 10.5 10??3/uL RBC 3.83 3.80 - 5.20 10??6/uL Hemoglobin 11.9 (L) 12.0 - 15.6 g/dL Hematocrit 35.4 35.0 - 45.0 % MCV 92.4 80.7 - 98.3 fL MCH 31.1 26.7 - 34.0 pg MCHC 33.6 30.8 - 35.9 g/dL RDW-SD 45.7 36.0 - 50.0 fL RDW-CV 13.5 11.2 - 14.8 % Platelet Count 292 150 - 400 10??3/uL MPV 9.9 9.4 - 12.9 fL nRBC Absolute 0.00 0 10??3/uL nRBC Auto 0.0 0 /100 WBC LIPID PROFILE Result Value Ref Range Cholesterol Total 173 <200 mg/dL HDL 42 >40 mg/dL LDL Calculated 91 <100 mg/dL Triglycerides 201 (H) <150 mg/dL BLOOD TYPE VERIFICATION Result Value Ref Range ABO Rh B POS GLUCOSE - POINT OF CARE Result Value Ref Range Glucose WB/POC 32 (LL) 70 - 115 mg/dL Specimen Type Cap Fingerstick GLUCOSE - POINT OF CARE Result Value Ref Range Glucose WB/POC 118 (H) 70 - 115 mg/dL Specimen Type Cap Fingerstick HEMOGLOBIN A1C Result Value Ref Range Hemoglobin A1c 6.0 (H) <=5.6 % Estimated Average Glucose 126 mg/dL GLUCOSE - POINT OF CARE Result Value Ref Range Glucose WB/POC 124 (H) 70 - 115 mg/dL Specimen Type Cap Fingerstick ECHO TRANSTHORACIC W BUBBLE STUDY Result Value Ref Range BSA 2.5754189 m2 LV biplane EF 64 54 - 74 % LV A2C EF 66 52 - 76 % LV A4C EF 66 46 - 78 % LV stroke vol BP 53.52 cm3 LV stroke vol 2D teich 32.61 ml LV stroke vol index A4C MOD 28.051 ml LVIDd 3.67 3.8 - 5.2 cm LVIDs 2.58 2.2 - 3.5 cm IVSd 2D 0.919 0.6 - 0.9 cm LVPWd 1.19 cm Fractional Shortening 2D 30 28 - 44 % LV ESV BP 13.266 14 - 42 mL LV ESV index BP 6.3 8 - 24 mL/m2 LV ESV A2C 14.674 10 - 54 mL LV EDV BP 37.07 mL LV ESV A4C 10.694 12 - 60 mL LV EDV index BP 17.5 29 - 61 mL/m2 LV EDV A2C 31.046 41 - 133 mL LV EDV A4C 42.725 mL LV ESV 2D 24.198 14 - 42 mL LV EDV 2D 56.808 46 - 106 mL LVOT diam 2.1 cm LVOT area 3.46 cm2 LV RWT 0.65 LV Mahmood A2C 6.823 cm LV Mahmood A4C 7.092 cm IVS/LVPW 0.771 LV mass 2D 86.6232 66 - 150 g LV mass index 2D 40.92 44 - 88 g/m2 MV E pk arianna 73.89 cm/s MV AVG E/E' 9.22 MV A pk arianna 73.505 cm/s MV E A ratio 1.01 MV E' lateral arianna 7.905 cm/s MV DT 134 ms MV E' septal arianna 8.119 cm/s MV A duration 66 ms MV E/e' septal 9.1 MV E/e' lateral 9.347 LVOT pk arianna 0.90 m/s LVOT mn arianna 0.61 m/s LVOT mn grad 1.7 mmHg LVOT Cardiac Output 13.175 l/min Qp:Qs 0.70 LA ESV A2C MOD Index 15 ml/m2 LA ESV A4C MOD Index 18 ml/m2 LA size 3.162 2.7 - 3.8 cm LA vol BP A-L 38.34 mL RV-mahmood basal diam 2.2 2.5 - 4.1 cm RV-mahmood longitudinal diam 5.4 5.9 - 8.3 cm RVIDd 2.3 cm RVOT diam Doppler 1.787 cm RVOT area Doppler 2.51 cm2 RVOT stroke vol 37.42 cm3 RVOT VTI 14.926 cm TRICUSPID VALVE S PRIME VELOCITY 12.03 TAPSE 2.088 1.7 cm RVOT pk arianna 0.83 m/s RA area 11.985 cm2 AV mn grad 5 mmHg AV pk grad 10 mmHg AV mn arianna 1.09 m/s AV pk arianna 1.58 m/s AV VTI 24.342 cm LVOT pk grad 3.226 mmHg LVOT VTI 15.461 cm AV area planimetry 2.20 cm2 AV area index 1.1 cm2/m2 AV area cont VTI 2.3 cm2 AV area pk arianna 2.1 cm2 AV Doppler arianna index pk arianna 0.57 Dimensionless Index 0.635 MV mn grad 2 mmHg MV pk grad 3 mmHg MV mn arianna 0.62 m/s MV pk arianna 79.498 cm/s MV PHT 39 ms MV area PHT 5.64 cm2 MV area cont eq 3.34 cm2 MV VTI 16.006 cm MV decel slope 550.922 cm/s2 RVOT mn grad 1 mmHg RVOT pk grad 3 mmHg PV area cont eq 2.2 cm2 PV mn grad 3 mmHg PV pk arianna 107.295 cm/s PV pk grad 5 mmHg PV VTI 17.168 cm PV mn arianna 76.135 cm/s IVC size 0.9 cm Max Age Predicted HR 181 Target HR 154 [id number] 6.054 cm [id number] 5.318 cm LEFT VENTRICLE STROKE VOLUME BIPLANE METHOD OF DISKS 23.804 ml/m2 LVIDs index 1.22 1.3 - 2.1 cm/m2 LV LVIDd index 1.73 2.3 - 3.1 cm/m2 HGB HCT PANEL Result Value Ref Range Hemoglobin 12.0 12.0 - 15.6 g/dL Hematocrit 36.6 35.0 - 45.0 % BLOOD GAS ART+LYTES+METAB+COOX POC NOTIF Result Value Ref Range Comment Notification Label Only - See Separate Report BLOOD GAS+COOX+LYTES+METAB ARTERIAL POCT Result Value Ref Range pH Arterial 7.36 7.35 - 7.45 pH pO2 Arterial 180 (H) 80 - 100 mmHg pCO2 Arterial 36 35 - 45 mmHg HCO3 Arterial 20.3 20.0 - 30.0 mmol/L BE Arterial -4.6 (L) -2.0 - 2.0 mmol/L Oxyhemoglobin Arterial 97.1 % Dexoyhemoglobin (HHB) % 1.1 % Methemoglobin 0.8 0.0 - 2.0 % Carboxyhemoglobin 1.0 0.0 - 2.0 % O2 Content Arterial 13.4 Interpret within clinical context ml/dL Hemoglobin by COOX 9.5 (L) 12.0 - 15.6 g/dL O2 Saturation Arterial 99 90 - 100 % Sodium Whole Blood 143 135 - 145 mmol/L Potassium Whole Blood 3.6 3.5 - 5.5 mmol/L Chloride WB 116 (H) 78 - 107 mmol/L Calcium Ionized 1.03 mmol/L Ionized Calcium pH Adjusted 1.01 (L) 1.19 - 1.34 mmol/L Anion Gap (AG) Arterial 10 8 - 18 mmol/L Glucose WB 155 (H) 70 - 115 mg/dL Lactic Acid Whole Blood 1.6 <=2.0 mmol/L BLOOD GASES ART + COOX PANEL Result Value Ref Range pH Arterial 7.36 7.35 - 7.45 pH pO2 Arterial 179 (H) 80 - 100 mmHg pCO2 Arterial 32 (L) 35 - 45 mmHg HCO3 Arterial 18.1 (L) 20.0 - 30.0 mmol/L BE Arterial -6.5 (L) -2.0 - 2.0 mmol/L Oxyhemoglobin Arterial 97.5 % Dexoyhemoglobin (HHB) % <1.0 % Methemoglobin 0.8 0.0 - 2.0 % Carboxyhemoglobin 1.0 0.0 - 2.0 % O2 Content Arterial 14.1 Interpret within clinical context ml/dL Hemoglobin by COOX 10.0 (L) 12.0 - 15.6 g/dL O2 Saturation Arterial 99 90 - 100 % FI O2 Arterial 40.0 % GLUCOSE - POINT OF CARE Result Value Ref Range Glucose WB/POC 164 (H) 70 - 115 mg/dL Specimen Type Cap Fingerstick GLUCOSE - POINT OF CARE Result Value Ref Range Glucose WB/POC 166 (H) 70 - 115 mg/dL Specimen Type Cap Fingerstick TROPONIN-I HIGH SENSITIVE BASELINE + 1HR Result Value Ref Range Troponin I High Sensitive <3 <=14 ng/L BASIC METABOLIC PANEL (CALCIUM TOTAL) Result Value Ref Range BUN 12 7 - 26 mg/dL Creatinine 0.64 0.56 - 0.96 mg/dL Sodium 142 136 - 145 mmol/L Potassium 4.8 (H) 3.5 - 4.5 mmol/L Chloride 115 (H) 98 - 107 mmol/L CO2 16 (L) 22 - 29 mmol/L Glucose 169 (H) 70 - 115 mg/dL Calcium 8.2 (L) 8.4 - 10.2 mg/dL Anion Gap 16 8 - 18 BUN/Creatinine Ratio 19 7 - 23 Osmolality Calculated 298 270 - 300 mOsm/kg eGFR by CKD-EPI >90 >=90 mL/min/1.73 m2 CBC W/O DIFFERENTIAL Result Value Ref Range WBC 18.7 (H) 3.5 - 10.5 10??3/uL RBC 2.98 (L) 3.80 - 5.20 10??6/uL Hemoglobin 9.4 (L) 12.0 - 15.6 g/dL Hematocrit 27.8 (L) 35.0 - 45.0 % MCV 93.3 80.7 - 98.3 fL MCH 31.5 26.7 - 34.0 pg MCHC 33.8 30.8 - 35.9 g/dL RDW-SD 48.8 36.0 - 50.0 fL RDW-CV 14.3 11.2 - 14.8 % Platelet Count 260 150 - 400 10??3/uL MPV 10.6 9.4 - 12.9 fL nRBC Absolute 0.00 0 10??3/uL nRBC Auto 0.0 0 /100 WBC MAGNESIUM BLOOD Result Value Ref Range Magnesium 2.2 1.6 - 2.6 mg/dL PHOSPHORUS BLOOD Result Value Ref Range Phosphorus 2.2 (L) 2.9 - 5.1 mg/dL RHEUMATOID FACTOR BLOOD QUANTITATIVE Result Value Ref Range Rheumatoid Factor <15 <30 IU/mL Rheumatoid Factor Screen Negative Negative COMPLEMENT C3 Result Value Ref Range Complement C3 155 82 - 193 mg/dL SARAH BLOOD SCREEN W/REFLEX TITER Result Value Ref Range SARAH IgG None Detected None Detected TROPONIN-I HIGH SENSITIVE REFLEX 1HOUR Result Value Ref Range Troponin I High Sensitive <3 <=14 ng/L Delta Troponin I HS CBC W AUTO DIFFERENTIAL Result Value Ref Range WBC 18.6 (H) 3.5 - 10.5 10??3/uL RBC 3.01 (L) 3.80 - 5.20 10??6/uL Hemoglobin 9.4 (L) 12.0 - 15.6 g/dL Hematocrit 27.9 (L) 35.0 - 45.0 % MCV 92.7 80.7 - 98.3 fL MCH 31.2 26.7 - 34.0 pg MCHC 33.7 30.8 - 35.9 g/dL RDW-SD 47.8 36.0 - 50.0 fL RDW-CV 14.1 11.2 - 14.8 % Platelet Count 259 150 - 400 10??3/uL MPV 10.5 9.4 - 12.9 fL nRBC Absolute 0.00 0 10??3/uL nRBC Auto 0.0 0 /100 WBC Neutrophils % 86.9 (H) 35.0 - 70.0 % Lymphocytes % 7.3 (L) 20.0 - 43.0 % Monocytes % 5.1 5.0 - 13.0 % Eosinophils % 0.0 0.0 - 6.0 % Basophil % 0.1 0.0 - 2.0 % Neutrophils Absolute 16.12 (H) 1.60 - 7.00 10??3/uL Lymphocyte Absolute 1.36 1.10 - 3.90 10??3/uL Monocytes Absolute 0.94 0.26 - 1.07 10??3/uL Eosinophils Absolute 0.00 0.00 - 0.47 10??3/uL Basophils Absolute 0.02 0.00 - 0.08 10??3/uL Immature Granulocytes % 0.6 0.0 - 1.0 % Immature Granulocytes Absolute 0.12 BLOOD GASES ART + COOX PANEL Result Value Ref Range pH Arterial 7.40 7.35 - 7.45 pH pO2 Arterial 143 (H) 80 - 100 mmHg pCO2 Arterial 31 (L) 35 - 45 mmHg HCO3 Arterial 19.2 (L) 20.0 - 30.0 mmol/L BE Arterial -4.8 (L) -2.0 - 2.0 mmol/L Oxyhemoglobin Arterial 97.2 % Dexoyhemoglobin (HHB) % <1.0 % Methemoglobin <0.8 0.0 - 2.0 % Carboxyhemoglobin 1.4 0.0 - 2.0 % O2 Content Arterial 13.6 Interpret within clinical context ml/dL Hemoglobin by COOX 9.7 (L) 12.0 - 15.6 g/dL O2 Saturation Arterial 99 90 - 100 % FI O2 Arterial 30.0 % GLUCOSE - POINT OF CARE Result Value Ref Range Glucose WB/POC 127 (H) 70 - 115 mg/dL Specimen Type Cap Fingerstick GLUCOSE - POINT OF CARE Result Value Ref Range Glucose WB/POC 129 (H) 70 - 115 mg/dL Specimen Type Cap Fingerstick MAGNESIUM BLOOD Result Value Ref Range Magnesium 2.2 1.6 - 2.6 mg/dL PHOSPHORUS BLOOD Result Value Ref Range Phosphorus 2.7 (L) 2.9 - 5.1 mg/dL CBC W AUTO DIFFERENTIAL Result Value Ref Range WBC 18.4 (H) 3.5 - 10.5 10??3/uL RBC 2.62 (L) 3.80 - 5.20 10??6/uL Hemoglobin 8.1 (L) 12.0 - 15.6 g/dL Hematocrit 25.1 (L) 35.0 - 45.0 % MCV 95.8 80.7 - 98.3 fL MCH 30.9 26.7 - 34.0 pg MCHC 32.3 30.8 - 35.9 g/dL RDW-SD 48.6 36.0 - 50.0 fL RDW-CV 14.0 11.2 - 14.8 % Platelet Count MPV Immature Platelet Fraction nRBC Absolute 0.00 0 10??3/uL nRBC Auto 0.0 0 /100 WBC Neutrophils % 69.8 35.0 - 70.0 % Lymphocytes % 18.4 (L) 20.0 - 43.0 % Monocytes % 10.9 5.0 - 13.0 % Eosinophils % 0.1 0.0 - 6.0 % Basophil % 0.1 0.0 - 2.0 % Neutrophils Absolute 12.87 (H) 1.60 - 7.00 10??3/uL Lymphocyte Absolute 3.38 1.10 - 3.90 10??3/uL Monocytes Absolute 2.00 (H) 0.26 - 1.07 10??3/uL Eosinophils Absolute 0.01 0.00 - 0.47 10??3/uL Basophils Absolute 0.02 0.00 - 0.08 10??3/uL Immature Granulocytes % 0.7 0.0 - 1.0 % Immature Granulocytes Absolute 0.13 BASIC METABOLIC PANEL (CALCIUM TOTAL) Result Value Ref Range BUN 16 7 - 26 mg/dL Creatinine 0.65 0.56 - 0.96 mg/dL Sodium 142 136 - 145 mmol/L Potassium 3.7 3.5 - 4.5 mmol/L Chloride 111 (H) 98 - 107 mmol/L CO2 20 (L) 22 - 29 mmol/L Glucose 120 (H) 70 - 115 mg/dL Calcium 8.0 (L) 8.4 - 10.2 mg/dL Anion Gap 15 8 - 18 BUN/Creatinine Ratio 25 (H) 7 - 23 Osmolality Calculated 296 270 - 300 mOsm/kg eGFR by CKD-EPI >90 >=90 mL/min/1.73 m2 GLUCOSE - POINT OF CARE Result Value Ref Range Glucose WB/POC 171 (H) 70 - 115 mg/dL Specimen Type Venous PLATELET COUNT AUTO CITRATED BLOOD Result Value Ref Range Platelet Count Citrated Blood 199 150 - 400 10??3/uL GLUCOSE - POINT OF CARE Result Value Ref Range Glucose WB/POC 109 70 - 115 mg/dL Specimen Type Cap Fingerstick GLUCOSE - POINT OF CARE Result Value Ref Range Glucose WB/POC 98 70 - 115 mg/dL Specimen Type Cap Fingerstick GLUCOSE - POINT OF CARE Result Value Ref Range Glucose WB/POC 127 (H) 70 - 115 mg/dL Specimen Type Cap Fingerstick GLUCOSE - POINT OF CARE Result Value Ref Range Glucose WB/POC 124 (H) 70 - 115 mg/dL Specimen Type Cap Fingerstick MAGNESIUM BLOOD Result Value Ref Range Magnesium 2.0 1.6 - 2.6 mg/dL PHOSPHORUS BLOOD Result Value Ref Range Phosphorus 3.4 2.9 - 5.1 mg/dL CBC W AUTO DIFFERENTIAL Result Value Ref Range WBC 16.7 (H) 3.5 - 10.5 10??3/uL RBC 2.52 (L) 3.80 - 5.20 10??6/uL Hemoglobin 7.8 (L) 12.0 - 15.6 g/dL Hematocrit 23.8 (L) 35.0 - 45.0 % MCV 94.4 80.7 - 98.3 fL MCH 31.0 26.7 - 34.0 pg MCHC 32.8 30.8 - 35.9 g/dL RDW-SD 46.7 36.0 - 50.0 fL RDW-CV 13.5 11.2 - 14.8 % Platelet Count 265 150 - 400 10??3/uL MPV 10.3 9.4 - 12.9 fL nRBC Absolute 0.00 0 10??3/uL nRBC Auto 0.0 0 /100 WBC Neutrophils % 70.7 (H) 35.0 - 70.0 % Lymphocytes % 18.4 (L) 20.0 - 43.0 % Monocytes % 9.2 5.0 - 13.0 % Eosinophils % 0.6 0.0 - 6.0 % Basophil % 0.3 0.0 - 2.0 % Neutrophils Absolute 11.79 (H) 1.60 - 7.00 10??3/uL Lymphocyte Absolute 3.07 1.10 - 3.90 10??3/uL Monocytes Absolute 1.54 (H) 0.26 - 1.07 10??3/uL Eosinophils Absolute 0.10 0.00 - 0.47 10??3/uL Basophils Absolute 0.05 0.00 - 0.08 10??3/uL Immature Granulocytes % 0.8 0.0 - 1.0 % Immature Granulocytes Absolute 0.13 BASIC METABOLIC PANEL (CALCIUM TOTAL) Result Value Ref Range BUN 13 7 - 26 mg/dL Creatinine 0.51 (L) 0.56 - 0.96 mg/dL Sodium 140 136 - 145 mmol/L Potassium 3.4 (L) 3.5 - 4.5 mmol/L Chloride 108 (H) 98 - 107 mmol/L CO2 25 22 - 29 mmol/L Glucose 132 (H) 70 - 115 mg/dL Calcium 8.3 (L) 8.4 - 10.2 mg/dL Anion Gap 10 8 - 18 BUN/Creatinine Ratio 25 (H) 7 - 23 Osmolality Calculated 292 270 - 300 mOsm/kg eGFR by CKD-EPI >90 >=90 mL/min/1.73 m2 ECHO SARAH Result Value Ref Range BSA 2.07 m2 Sinus of Valsalva 2.[address] junction 1.878 cm Max Age Predicted HR 181 Target HR 154 GLUCOSE - POINT OF CARE Result Value Ref Range Glucose WB/POC 113 70 - 115 mg/dL Specimen Type Cap Fingerstick MRSA DNA PCR Specimen: Nasal; Microbiology Result Value Ref Range MRSA DNA by PCR Not detected Not detected ERYTHROCYTE SEDIMENTATION RATE Result Value Ref Range Erythrocyte Sedimentation Rate Westergren 55 (H) 0 - 20 MM/HR C-REACTIVE PROTEIN Result Value Ref Range C-Reactive Protein 12.1 (H) <=0.5 mg/dL GLUCOSE - POINT OF CARE Result Value Ref Range Glucose WB/POC 105 70 - 115 mg/dL Specimen Type Cap Fingerstick MAGNESIUM BLOOD Result Value Ref Range Magnesium 2.1 1.6 - 2.6 mg/dL PHOSPHORUS BLOOD Result Value Ref Range Phosphorus 3.1 2.9 - 5.1 mg/dL CBC W AUTO DIFFERENTIAL Result Value Ref Range WBC 17.4 (H) 3.5 - 10.5 10??3/uL RBC 2.58 (L) 3.80 - 5.20 10??6/uL Hemoglobin 8.0 (L) 12.0 - 15.6 g/dL Hematocrit 24.4 (L) 35.0 - 45.0 % MCV 94.6 80.7 - 98.3 fL MCH 31.0 26.7 - 34.0 pg MCHC 32.8 30.8 - 35.9 g/dL RDW-SD 46.7 36.0 - 50.0 fL RDW-CV 13.6 11.2 - 14.8 % Platelet Count 310 150 - 400 10??3/uL MPV 10.4 9.4 - 12.9 fL nRBC Absolute 0.03 (H) 0 10??3/uL nRBC Auto 0.2 (H) 0 /100 WBC Neutrophils % 69.8 35.0 - 70.0 % Lymphocytes % 19.2 (L) 20.0 - 43.0 % Monocytes % 8.8 5.0 - 13.0 % Eosinophils % 1.1 0.0 - 6.0 % Basophil % 0.2 0.0 - 2.0 % Neutrophils Absolute 12.14 (H) 1.60 - 7.00 10??3/uL Lymphocyte Absolute 3.33 1.10 - 3.90 10??3/uL Monocytes Absolute 1.52 (H) 0.26 - 1.07 10??3/uL Eosinophils Absolute 0.19 0.00 - 0.47 10??3/uL Basophils Absolute 0.04 0.00 - 0.08 10??3/uL Immature Granulocytes % 0.9 0.0 - 1.0 % Immature Granulocytes Absolute 0.15 BASIC METABOLIC PANEL (CALCIUM TOTAL) Result Value Ref Range BUN 14 7 - 26 mg/dL Creatinine 0.56 0.56 - 0.96 mg/dL Sodium 140 136 - 145 mmol/L Potassium 4.1 3.5 - 4.5 mmol/L Chloride 110 (H) 98 - 107 mmol/L CO2 23 22 - 29 mmol/L Glucose 119 (H) 70 - 115 mg/dL Calcium 8.5 8.4 - 10.2 mg/dL Anion Gap 11 8 - 18 BUN/Creatinine Ratio 25 (H) 7 - 23 Osmolality Calculated 292 270 - 300 mOsm/kg eGFR by CKD-EPI >90 >=90 mL/min/1.73 m2 BETA-2 GLYCOPROTEIN 1 ANTIBODY IGA Result Value Ref Range Beta-2 Glycoprotein Antibody IgA <10 <=20 [facility] BETA-2 GLYCOPROTEIN 1 ANTIBODY IGG/IGM PANEL Result Value Ref Range Beta-2 Glycoprotein Antibody IgG <10 <=20 [facility] Beta-2 Glycoprotein Antibody IgM <10 <=20 [facility] CARDIOLIPIN ANTIBODY IGA Result Value Ref Range Cardiolipin Antibody IgA <10 <=11 [facility] CARDIOLIPIN ANTIBODY IGG Result Value Ref Range Cardiolipin Antibody IgG <10 <=14 [facility] CARDIOLIPIN ANTIBODY IGM Result Value Ref Range Cardiolipin Antibody IgM <10 <=12 [facility] LUPUS ANTICOAGULANT PANEL Result Value Ref Range APTT 21.4 (L) 23.0 - 38.4 Seconds PT 13.4 12.1 - 14.8 Seconds INR 1.0 See Comment [facility] Buffer 30.2 Seconds [facility] Phospholipid 26.9 Seconds [facility] Delta 3.3 <8.0 Seconds Interpretation [facility] Negative GLUCOSE - POINT OF CARE Result Value Ref Range Glucose WB/POC 130 (H) 70 - 115 mg/dL Specimen Type Cap Fingerstick GLUCOSE - POINT OF CARE Result Value Ref Range Glucose WB/POC 130 (H) 70 - 115 mg/dL Specimen Type Cap Fingerstick GLUCOSE - POINT OF CARE Result Value Ref Range Glucose WB/POC 112 70 - 115 mg/dL Specimen Type Cap Fingerstick GLUCOSE - POINT OF CARE Result Value Ref Range Glucose WB/POC 111 70 - 115 mg/dL Specimen Type Cap Fingerstick MAGNESIUM BLOOD Result Value Ref Range Magnesium 2.1 1.6 - 2.6 mg/dL PHOSPHORUS BLOOD Result Value Ref Range Phosphorus 3.7 2.9 - 5.1 mg/dL CBC W AUTO DIFFERENTIAL Result Value Ref Range WBC 16.6 (H) 3.5 - 10.5 10??3/uL RBC 2.65 (L) 3.80 - 5.20 10??6/uL Hemoglobin 8.2 (L) 12.0 - 15.6 g/dL Hematocrit 25.1 (L) 35.0 - 45.0 % MCV 94.7 80.7 - 98.3 fL MCH 30.9 26.7 - 34.0 pg MCHC 32.7 30.8 - 35.9 g/dL RDW-SD 45.8 36.0 - 50.0 fL RDW-CV 13.4 11.2 - 14.8 % Platelet Count 402 (H) 150 - 400 10??3/uL MPV 10.2 9.4 - 12.9 fL nRBC Absolute 0.03 (H) 0 10??3/uL nRBC Auto 0.2 (H) 0 /100 WBC Neutrophils % 72.0 (H) 35.0 - 70.0 % Lymphocytes % 15.7 (L) 20.0 - 43.0 % Monocytes % 8.7 5.0 - 13.0 % Eosinophils % 2.1 0.0 - 6.0 % Basophil % 0.4 0.0 - 2.0 % Neutrophils Absolute 11.95 (H) 1.60 - 7.00 10??3/uL Lymphocyte Absolute 2.60 1.10 - 3.90 10??3/uL Monocytes Absolute 1.45 (H) 0.26 - 1.07 10??3/uL Eosinophils Absolute 0.34 0.00 - 0.47 10??3/uL Basophils Absolute 0.06 0.00 - 0.08 10??3/uL Immature Granulocytes % 1.1 (H) 0.0 - 1.0 % Immature Granulocytes Absolute 0.18 BASIC METABOLIC PANEL (CALCIUM TOTAL) Result Value Ref Range BUN 16 7 - 26 mg/dL Creatinine 0.48 (L) 0.56 - 0.96 mg/dL Sodium 140 136 - 145 mmol/L Potassium 4.0 3.5 - 4.5 mmol/L Chloride 106 98 - 107 mmol/L CO2 25 22 - 29 mmol/L Glucose 116 (H) 70 - 115 mg/dL Calcium 9.0 8.4 - 10.2 mg/dL Anion Gap 13 8 - 18 BUN/Creatinine Ratio 33 (H) 7 - 23 Osmolality Calculated 292 270 - 300 mOsm/kg eGFR by CKD-EPI >90 >=90 mL/min/1.73 m2 HIV-1 HIV-2 ANTIBODY + HIV P24 AG PANEL Result Value Ref Range HIV Antigen/Antibody 1 & 2 Non-reactive Non-reactive HEPATITIS C AB SCREEN RFLX NAAT QUANT Result Value Ref Range Hepatitis C Antibody Non-reactive Non-reactive GLUCOSE - POINT OF CARE Result Value Ref Range Glucose WB/POC 123 (H) 70 - 115 mg/dL Specimen Type Cap Fingerstick PT-INR [facility] Result Value Ref Range PT 13.4 12.1 - 14.8 Seconds INR 1.0 See Comment PTT [facility] Result Value Ref Range APTT 24.8 23.0 - 38.4 Seconds GLUCOSE - POINT OF CARE Result Value Ref Range Glucose WB/POC 122 (H) 70 - 115 mg/dL Specimen Type Cap Fingerstick PTT [facility] Result Value Ref Range APTT 33.3 23.0 - 38.4 Seconds GLUCOSE - POINT OF CARE Result Value Ref Range Glucose WB/POC 114 70 - 115 mg/dL Specimen Type Cap Fingerstick MAGNESIUM BLOOD Result Value Ref Range Magnesium 1.9 1.6 - 2.6 mg/dL PHOSPHORUS BLOOD Result Value Ref Range Phosphorus 3.5 2.9 - 5.1 mg/dL CBC W AUTO DIFFERENTIAL Result Value Ref Range WBC 16.1 (H) 3.5 - 10.5 10??3/uL RBC 2.64 (L) 3.80 - 5.20 10??6/uL Hemoglobin 8.1 (L) 12.0 - 15.6 g/dL Hematocrit 25.1 (L) 35.0 - 45.0 % MCV 95.1 80.7 - 98.3 fL MCH 30.7 26.7 - 34.0 pg MCHC 32.3 30.8 - 35.9 g/dL RDW-SD 46.2 36.0 - 50.0 fL RDW-CV 13.5 11.2 - 14.8 % Platelet Count 446 (H) 150 - 400 10??3/uL MPV 10.0 9.4 - 12.9 fL nRBC Absolute 0.04 (H) 0 10??3/uL nRBC Auto 0.2 (H) 0 /100 WBC Neutrophils % 63.5 35.0 - 70.0 % Lymphocytes % 22.7 20.0 - 43.0 % Monocytes % 8.3 5.0 - 13.0 % Eosinophils % 3.2 0.0 - 6.0 % Basophil % 0.4 0.0 - 2.0 % Neutrophils Absolute 10.24 (H) 1.60 - 7.00 10??3/uL Lymphocyte Absolute 3.65 1.10 - 3.90 10??3/uL Monocytes Absolute 1.34 (H) 0.26 - 1.07 10??3/uL Eosinophils Absolute 0.51 (H) 0.00 - 0.47 10??3/uL Basophils Absolute 0.06 0.00 - 0.08 10??3/uL Immature Granulocytes % 1.9 (H) 0.0 - 1.0 % Immature Granulocytes Absolute 0.30 BASIC METABOLIC PANEL (CALCIUM TOTAL) Result Value Ref Range BUN 13 7 - 26 mg/dL Creatinine 0.54 (L) 0.56 - 0.96 mg/dL Sodium 139 136 - 145 mmol/L Potassium 3.3 (L) 3.5 - 4.5 mmol/L Chloride 105 98 - 107 mmol/L CO2 24 22 - 29 mmol/L Glucose 113 70 - 115 mg/dL Calcium 8.4 8.4 - 10.2 mg/dL Anion Gap 13 8 - 18 BUN/Creatinine Ratio 24 (H) 7 - 23 Osmolality Calculated 289 270 - 300 mOsm/kg eGFR by CKD-EPI >90 >=90 mL/min/1.73 m2 PTT [facility] Result Value Ref Range APTT 20.5 (L) 23.0 - 38.4 Seconds PT-INR [facility] Result Value Ref Range PT 13.6 12.1 - 14.8 Seconds INR 1.0 See Comment PTT [facility] Result Value Ref Range APTT 44.3 (H) 23.0 - 38.4 Seconds GLUCOSE - POINT OF CARE Result Value Ref Range Glucose WB/POC 144 (H) 70 - 115 mg/dL Specimen Type Cap Fingerstick VANCOMYCIN LEVEL TROUGH Result Value Ref Range Vancomycin Trough 14.0 10.0 - 20.0 ug/mL PTT [facility] Result Value Ref Range APTT 51.1 (H) 23.0 - 38.4 Seconds GLUCOSE - POINT OF CARE Result Value Ref Range Glucose WB/POC 122 (H) 70 - 115 mg/dL Specimen Type Cap Fingerstick Other Studies: CT C/A/P 10/25/22: 1.Occlusion of the right distal external iliac [...] process in the chest abdomen or pelvis MRI Brain 10/24/22: 1.Redemonstration of postoperative changes of a right hemicraniectomy with expected postsurgical changes as outlined above. 2.Redemonstration of evolving large right MCA territory infarction with extensive cytotoxic edema and mild external herniation of the brain through the craniectomy defect. Persistent local mass effect on the right cerebral hemisphere, effacement of the right lateral ventricle, and approximately 3-4 mm [id number] midline shift, grossly similar to the prior. 3.Mild dilation of the left lateral ventricle may represent subtle left ventricular entrapment, overall grossly similar to prior. 4.Additional multiple foci of abnormal diffusion within the left frontotemporal lobes with associated T2 FLAIR hyperintensity representing additional small acute to subacute infarcts, likely of cardioembolic Etiology. Assessment & Recommendations #. Right MCA stroke, s/p Tenecteplase and decompressive right hemicraniectomy: #. 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 Leucocytosis: She presented with Rt MCA stroke and found to have AV vegetation on SARAH. ID, Cardiology and Dental on board. 10/23, 10/24 blood cultures neg with 10/26 pending. Hypercoagulable work up per primary team in process. 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 ?? # Occlusion of the right distal external iliac and common femoral artery and a short segment of theproximal profunda femoris with distal reconstitution: Vascular surgery on board, suspect iatrogenic vascular injury of the external iliac artery. Plan for YING multilevel and OR tentatively on 10/30 for right femoral cutdown, thrombectomy, angiogram with possible intervention, possible vein harvest by vascular. ?? SUMMARY OF RECOMMENDATIONS - Defer further workup and management to primary team. ? Primary team informed of the above recommendations. Rheumatology will sign off. Please contact the rheumatology fellow on-call with questions. This patient was seen and staffed with attending Dr. Jasso. ?? Josue Castellanos MD Rheumatology Fellow [facility] Associated attestation - Gonzalez Jasso MD - 10/26/2022 3:55 PM CDT Rheumatology Attending Attestation: I have seen and examined the patient with the fellow and I agree with the findings and plan of careas documented by the fellow. Today???s evaluation to inform management recommendations included review of other providers??? documentation and review of diagnostic studies, as well as included coordination of care with other providers and patient counseling regarding their medical problems and management plan. Total time spent directly in patient care and care coordination: >35 mins. Date of Service: 10/26/22. Gonzalez Jasso MD, FACP Director, Rheumatology Fellowship Program Department of Internal Medicine [facility] * Liv Lugo MD - 10/26/2022 1:18 PM CDT Vascular Surgery Plan of Care Patient tentatively scheduled for OR on 10/30 for right femoral cutdown, thrombectomy, angiogram with possible intervention, possible vein harvest. Please make NPO sips with meds the midnight prior. - Consent to be obtained, site to be marked day of - CHG bath the night prior - Please hold heparin when patient rolls down to pre-op Liv Lugo MD Vascular Surgery Resident, PGY-2 10/26/22 1:19 PM * Agnes Erazo, PT - 10/26/2022 1:15 PM CDT [facility] Department of Physical Medicine & Rehabilitation Progress Note Patient: Consuleo Darby Med Record Number: [id number] Date of : 1980 Age: [age] year old 10/26/22 1300 Missed Visit Missed Visit Other (Comment) (awaiting helmet) * Yoon Cuadra, PharmD - 10/26/2022 12:54 PM CDT Vancomycin Per Pharmacy - Follow-Up Note Subjective Consuelo Darby is a 41 year old female receiving vancomycin dosed per pharmacy. Indication for anti-infective therapy: suspected infection Site of anti-infective therapy: FINE HAIRER. Goal trough 15-20 mcg/mL. Objective Day of treatment: 2 Current dosing regimen: 1250 mg, q 8 hr. Weight: 95.3 kg (210 lb) Estimated Creatinine Clearance: 156.6 mL/min (A) (by C-G formula based on SCr of 0.54 mg/dL (L)). Ht Readings from Last 1 Encounters: 10/20/22 5' 4 (1.626 m) Recent Labs Component Name 10/26/22 0838 10/26/22 0002 10/25/22 0007 10/23/222028 CREATININE - 0.54* 0.48* 0.56 WBC - 16.1* 16.6* 17.4* VANCTROUGH 14.0 - - - Vancomycin Administrations from MAR (last 72 hours) Date/Time Action Medication Dose Rate 10/26/22 1012 $ New Bag/Syringe vancomycin (Vancocin) 1,250 mg in 250 mL NaCl IVPB Premix 1,250 mg 200 mL/hr 10/26/22 0220 $ New Bag/Syringe vancomycin (Vancocin) 1,250 mg in 250 mL NaCl IVPB Premix 1,250 mg 200 mL/hr 10/25/22 1756 $ New Bag/Syringe vancomycin (Vancocin) 1,250 mg in 250 mL NaCl IVPB Premix 1,250 mg 200 mL/hr 10/25/22 0952 $ New Bag/Syringe vancomycin (Vancocin) 1,250 mg in 250 mL NaCl IVPB Premix 1,250 mg 200 mL/hr 10/25/22 0200 $ New Bag/Syringe vancomycin (Vancocin) 2,250 mg in 545 mL IVPB 2,250 mg 242.22 mL/hr Assessment Target trough:15-20 mcg/mL The vancomycin serum level reported above was drawn 6.2 hours after the previous dose was administered. Using pharmacokinetic calculations, the extrapolated true trough is approximately 10.3 mcg/mL Patient's trough level is below the therapeutic range on the current regimen. SCr is stable at this time. Plan Dosing: Will adjust dose to 1500 mg q8hr. This regimen is predicted to provide a trough = 13 mcg/mL. While below stated goal, cautiously increasing with expectation for accumulation. Monitoring: Will obtain a vancomycin trough level prior to the dose on 10/28 at 0900 and adjust regimen if appropriate. Will continue to monitor patient's renal function. Please contact the [facility] pharmacy department ([id number]) with any questions. Yoon Cuadra PharmD 10/26/2022 12:47 PM Resources: Vancomycin Protocol * Jerry Leigh SLP - 10/26/2022 11:55 AM CDT [facility] Physical Medicine and Rehabilitation Bedside Swallow Assessment Patient: Consuelo Darby Med Record Number: [id number] Date of : 1980 Age: [age] year old Patient Active Problem List: GERD (gastroesophageal reflux disease) Hemianopsia Weakness Left-sided sensory deficit present Gaze palsy Acute cerebrovascular accident (CVA) due to embolism of right middle cerebral artery (CMS/HCC) Nihss score 9 Received intravenous tissue plasminogen activator (tPA) in emergency department Migraine Hypertension Right middle cerebral artery stroke (CMS/HCC) Past Medical History: Diagnosis Date ??? Abdominal pain, right upper quadrant ??? GERD (gastroesophageal reflux disease) ??? History of hypertension gestational hypertension In addition to the 1:1 evaluation of the patient, additional eval time was spent completing the chart review prior to the assessment, completing the multidisciplinary plan of care and education plan post evaluation and communicating results of the eval to other treatment team members. PPE: PPE worn by staff: mask - procedural;gloves PPE worn by patient: gown - patient, clean;socks - clean Impressions: Patient's swallow function assessed at bedside. Patient completed trial of ice chips and puree consistencies with moderate-severe oropharyngeal dysphagia. Patient demonstrated severely delayed initiation, and severely delayed swallow trigger. ST recommends NPO and continuing with TFs via NG at this time. ST will follow patient to assess safety of swallow function while in hospital. Recommendations: Diet Liquids Recommendation: NPO Diet Solids Recommendation: NPO Recommended Form of Meds: NPO;Feeding Tube Recommended Tests/Consults: Recommendations: Dysphagia Treatment Discharge Recommendations: Speech therapy is recommended to improve swallow function. SUBJECTIVE: Patient Goals: No goals at this time Pain Assessment: Patient does not respond to questions about pain/ pain level OBJECTIVE: Level of Consciousness: alert Orientation Level: oriented to person Positioning: Upright in bed Respiratory Status: room air Oral/Motor: Dentition: Normal Oral Hygiene : Xerostomic (dry mouth) Labial/Facial: Impaired Tongue: Impaired Vocal Quality: Impaired Velopharyngeal Status: Impaired Oral Motor Coordination: Impaired Controls Secretions: No Swallow Trials: Ice chips: Presentation: Spoon-Assisted Oral: Delayed Initiation;Increased Anterior to Posterior Transit;Pocketing Left ;Pocketing Right Pharyngeal: Delayed Swallow;Decreased Laryngeal Elevation Puree: Presentation: Spoon-Assisted Oral: Delayed Initiation;Increased Anterior to Posterior Transit;Spillage Left Pharyngeal: Delayed Swallow;Decreased Laryngeal Elevation Assessment: Risk For Aspiration: Moderate Primary Diagnostic Impression - Oral: Moderate;Severe Primary Diagnostic Impression - Pharyngeal: Moderate Education/Interventions: While performing SIGNALING PROJECT ENGINEER, Patient and spouse was instructed in: goals of treatment , clinical signs of aspiration and recommendations for NPO status given patient's elevated aspiration risk. Patient and spouse demonstrated Good understanding of instructions given. Physician and Nurse contacted regarding results of swallow evaluation and recommendations. INFORMED CONSENT TO TREATMENT: Plan of care including recommended therapy, goals and frequency, discussed with patient who understands and agrees to proceed. Short Term Goals Patient will tolerate recommended food and liquid consistencies without clinical signs of aspiration., Patient will understand clinical signs of aspiration and aspiration precautions., Patient will follow recommended swallowing strategies. Environmental Marketer Goal (s): Patient to be independent/baseline with functional mobility and self care and be able to safely discharge to prior level of care. Jerry Valle M.A., [facility]-SIGNALING PROJECT ENGINEER Speech Language Pathologist [phone] * Pardeep Parks RN - 10/26/2022 11:41 AM CDT Problem: Neurological Deficit Goal: Neurological status is stable or improving Outcome: Progressing Problem: Hemodynamic Status/Cardiac Output Goal: Patient has stable vital signs and fluid balance Outcome: Progressing Problem: Oxygenation/Respiratory Function Goal: Respiratory rate/effort will be within specified limits Outcome: Progressing Problem: Safety related to restraint use Goal: Absence of injury while restrained Outcome: Progressing * Ronda Crawley OT - 10/26/2022 11:34 AM CDT [facility] Department of Physical Medicine & Rehabilitation Progress Note Patient: Consuelo Darby Med Record Number: [id number] Date of : 1980 Age: [age] year old 10/26/22 1100 Missed Visit Missed Visit Other (Comment) Cancel - no helmet. Will follow up tomorrow. * Bulmaro Ochoa RN - 10/26/2022 9:21 AM CDT Care Coordination Progress Note Anticipated level of care at discharge: Home, Acute Rehab Facility: Anticipated level of care provider: None: Anticipated Discharge Date: 10/31/22 Discharge Plan: Pending patient's progress with medical treatment and care team recommendations. Pending updated PT, OT evaluation when appropriate. Per neurology notes 10/26/22:- 10/24: Extubated to 4L NC. ID consulted. Started empiric abx vanc rocephin. MRI with acute subacute small infarcts in L MCA territory 10/25: started heparin drip with aPTT goals of 60-80. CT CAP: no masses or infections.prelim cx- no growth Orientation Level: Unable to Obtain: Family Support (Name and Phone): Extended Emergency Contact Information Primary Emergency Contact: Hi Darby Address: [address] [place] [id number] [facility] Relation: Spouse Secondary Emergency Contact: Sandra Disla [facility] Mobile Relation: Mother Transportation at Discharge: Ambulance: READMISSION RISK SCORE is 14 at 9:22 AM 10/26/2022.: Name: Bulmaro Ochoa RN BSN manager in home [phone] * Vickie Muller MD - 10/26/2022 9:18 AM CDT Stroke Service Daily Progress Note Consuelo Darby Age: [age] year old Date of : 1980 Date of Admission: 10/19/2022 Hospital Day: 7 Subjective Consuelo Darby is a 41yo M hemiplegic migraine, GERD, GENESIS. who developed acute onset L sided weakness, L-sided sensory deficits, and dysarthria. L sided weakness resolved in route and dysarthria improved in route. On arrival patient noted to hae L gaze plasy, L hemainopsia, mild dysarthria, and extinction. NIHSS: 7. Patient was given TNK and code IVR was activated. TICI2b revascularization of theR MCA M1 occlusion. Admitted to ICU for post- thrombectomy monitoring. Repeat CTH showing edema in RMCA territory. On 10/20/22 patient taken for hemicraniectomy, post-op CTH showing stable midline shift. Initial hypercoag work up negative, repeat in [address], QDay CTH. NSGY following. CTH 10/22 showing large R MCA infarct, minimal midline. shift. Starting lovenox. -10/23- SARAH concerning for aortic cusp vegetations. Rheum, Cardiology and CT Surgery consulted. Blood clx ordered for plan to start heparin gtt after 24 prelim negative -10/24 - patient had a temp 100.2, increase in WBC. ID consulted. Started empiric abx. -10/25 extubated. Dentist evaluated, no concern for dental issues. CT cardiac resulted more concerning for vegetation. Heparin gtt started. ?? Interval History: CT a/p showed occlusion in R distal external iliac and common femoral. Bilateral pulses are present. Will consult vascular surgery to help assess. Objective Patient Vitals for the past 24 hrs: BP Temp Temp src Pulse Resp SpO2 10/26/22 0900 113/72 -- -- 95 16 98 % 10/26/22 0800 119/80 97.6 ??F (36.4 ??C) Axillary 88 18 98 % 10/26/22 0700 133/73 -- -- (!) 115 20 99 % 10/26/22 0600 133/69 97.1 ??F (36.2 ??C) Axillary 92 16 100 % 10/26/22 0500 126/69 -- -- 96 20 99 % 10/26/22 0400 136/91 98.5 ??F (36.9 ??C) Axillary 99 20 99 % 10/26/22 0300 127/86 -- -- 85 18 99 % 10/26/22 0200 126/71 98.7 ??F (37.1 ??C) Axillary 87 18 99 % 10/26/22 0100 128/91 -- -- 95 17 99 % 10/26/22 0000 115/69 98 ??F (36.7 ??C) Axillary 92 18 98 % 10/25/22 2300 115/78 -- -- 82 18 97 % 10/25/22 2200 97/81 97.8 ??F (36.6 ??C) Axillary 100 27 100 % 10/25/22 2102 -- -- -- 108 26 100 % 10/25/22 2100 142/76 -- -- 108 28 100 % 10/25/22 2000 132/82 98.5 ??F (36.9 ??C) Axillary (!) 113 21 98 % 10/25/22 1800 122/78 98.9 ??F (37.2 ??C) Axillary (!) 112 21 100 % 10/25/22 1700 133/87 -- -- (!) 113 22 99 % 10/25/22 1600 126/68 97.6 ??F (36.4 ??C) Axillary 94 20 100 % 10/25/22 1500 139/70 -- -- (!) 112 22 100 % 10/25/22 1400 129/66 98 ??F (36.7 ??C) Axillary (!) 114 24 100 % 10/25/22 1300 131/76 -- -- (!) 110 24 100 % 10/25/22 1200 126/83 97.6 ??F (36.4 ??C) Axillary 102 19 99 % 10/25/22 1100 132/65 -- -- 98 22 100 % 10/25/22 1000 112/71 97.7 ??F (36.5 ??C) Axillary 83 21 100 % Intake/Output Summary (Last 24 hours) at 10/26/2022 0918 Last data filed at 10/26/2022 0800 Gross per 24 hour Intake 1109 ml Output 2460 ml Net -1351 ml Exam: Cortical Function Mental Status Awake, alert, follows commands Orientation REYNOLD Language Aphasia Visual Powell Intact bilaterally to confrontation Neglect No visual neglect noted, no tactile neglect noted Cranial Nerves II Pupils 3 mm and bilaterally reactive to light. Fundoscopic exam not performed. VIII Hearing is intact bilaterally to finger rub. III/IV/ Extraocular muscles intact. No diplopia, ptosis, nystagmus or convergence abnormalities noted. IX/X Palate elevated symmetrically without phonation abnormalities noted. V Facial sensation symmetric to light touch and intact bilaterally. Corneal reflex not examined. XIHead turning and shoulder shrug are intact. VII No facial palsy noted. XII Tongue is midline with normal movements and no atrophy noted. Motor Function Movement No abnormalities noted Bulk No abnormalities noted Tone No abnormalities noted Moves RUE and RLE, tries to withdraw to pain in LUE and LLE Sensory Light Touch REYNOLD Noxious Stimuli Symmetric and intact bilaterally Labs: Recent Labs Component Name 10/26/22 0002 10/25/22 0007 10/23/22202810/23/22 0129 10/22/22152 WBC 16.1* 16.6* 17.4* - - RBC 2.64* 2.65* 2.58* - - HGB 8.1* 8.2* 8.0* - - HCT 25.1* 25.1* 24.4* - - PLT - - - - 199 - = values in this interval not displayed. Recent Labs Component Name 10/26/22 0002 10/25/22 0007 10/23/222028 NA 139 140 140 CL 105 106 110* CO2 BUN 13 16 14 CREATININE 0.54* 0.48* 0.56 CALCIUM 8.4 9.0 8.5 No results for input(s): MG in the last 46515 hours. Recent Labs Component Name 10/26/22 0002 10/25/22 0007 10/23/222028 PHOS 3.5 3.7 3.1 Recent Labs Component Name 10/26/22 0647 10/26/22 0426 10/26/22 0155 10/25/22 2102 10/25/22 1641 10/23/222028 PT - 13.6 - - 13.4 13.4 INR - 1.0 - - 1.0 1.0 PTT 44.3* - 20.5* 33.3 24.8 21.4* No results for input(s): A1C in the last 00036 hours. Recent Labs Component Name 10/20/22 0302 06/15/22 0757 CHOL 173 204* HDL 42 37* LDLCALC 91 117* TRIG 201* 251* Recent Labs Component Name 06/15/22 0757 TSH 1.873 No results for input(s): CKMB, CKTOTAL, CKMB, TROPONINI, BNP in the last [address] ANGIO BRAIN NECK STROKE Result Date: 10/19/2022 PROCEDURE: CT ANGIO BRAIN NECK STROKE, DATE/TIME OF EXAM: 10/19/2022 8:16 AM, LOCATION [facility] INDICATION: Code Stroke ADDITIONAL CLINICAL INFORMATION: Ordering Provider Reason For Exam: Technologist Note: Additional: EXAMINATION: 1. Computed tomographic (CT) angiography of the head with contrast 2. CT angiography of the neck with contrast TECHNIQUE: CT angiography of the headand neck was obtained after the uneventful administration [...] a concurrent noncontrasted head CT for detailed intracranialfindings including findings suggesting an acute right MCA [...] arteries are patent. The basilar artery is patentpatent. 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 IMPRESSION: 1. [...] Lonnie Rae MD on 10/19/2022 8:[address] BRAIN - Stroke Result Date: 10/19/2022 PROCEDURE: CT BRAIN STROKE, DATE/TIME OF EXAM: 10/19/2022 8:04 AM, LOCATION [facility] INDICATION: Code Stroke ADDITIONAL CLINICAL INFORMATION: Ordering [...] of scott-white matter differentiation in the right frontotemporallobes and the right insula, concerning for an acute infarct. There is suggestion of a hyperdense right MCA likely represent acute thrombus (series 5 image 25). No acute intracranial hemorrhage or intra- or extra-axial fluid collections are identified. The ventricles are of normal size, shape, and morphology. The basal cisterns are patent. No mass effect or midline shift is seen. The scott-white mat ter differentiation is normal. The visualized portions of [...] Lonnie Rae MD on 10/19/2022 8:15 AM Right middle cerebral artery stroke (CMS/HCC) (POA: Unknown) Acute cerebrovascular accident (CVA) due to embolism of right middle cerebral artery (CMS/HCC) (POA: Yes) Nihss score 9 (POA: Yes) Received intravenous tissue plasminogen activator (tPA) in emergency department (POA: Yes) GERD (gastroesophageal reflux disease) (POA: Yes) Hemianopsia (POA: Yes) Weakness (POA: Yes) Left-sided sensory deficit present (POA: Yes) Gaze palsy (POA: Yes) Migraine (POA: Unknown) Hypertension (POA: Unknown) Assessment ??Consuelo Darby is a 41 year old female who presented on 10/19 with Right MCA syndrome s/p TNK. CTA 1 M1 occlusion. S/P mechanical thrombectomy with R M1 recanalization and TICI2b. CT 10/20/22 with edema and mild shift. S/P decompressive right hemicraniectomy. Echo showed a mobile aortic valve vege tation. MRI brain with scattered cortical R hemisphere infarcts with petechial ?? Stroke Type: Ischemic Stroke Mechanism: ESUS ?? Plan Neurological ?? R M1 ischemic stroke; active - s/p TICI2b revascularization, TNK - s/p decompressive hemicrani on 10/20 for malignant MCA - HbA1C: 6.0, LDL: 91, Cardiac Enzymes; wnl - q1h vitals and neurological checks - atorvastatin 80 mg - Repeat CT head ordered Core Measures TNK administration: yes Anti-thrombotic: holding while on AC Statin: atorvastatin 80mg DVT prophylaxis: heparin gtt Swallow Evaluation: pending PT/OT Evaluation: pending Smoking cessation: N/A Migraine - verapamil 40 TID GENESIS - cont home amitriptyline Cardiovascular ? 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 CT C/A/P/ ordered. - dentist evaled teeth, no concern - Follow blood cultures. If negative at 48 h will start heparin gtt - CT cardiac concerning more for vegetation ?? HTN: - home metop Blood Pressure Goals: SBP <160, map >70 Respiratory ? #AHRF - Extubated to NC - Aspiration precautions - Elevate head of bed - Maintain oxygen saturation > 92% - Monitor for respiratory distress Gastrointestinal ? No acute issues ??-NPO until passes swallow. 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 No acute issues ?? - Monitor intake and output - Replete electrolytes as needed Hematology ? No acute issues ?? - Transfuse for hemoglobin < 7.0 g/dL Endocrine ? Vit D deficiency - Vit D 2,000 U daily Infectious Disease ? Concern for vegetation on left coronary cusp ?? - ID consult. See details above Musculoskeletal ? No acute issues Disposition ? - PT/OT pending ?? Individual Modifiable Risk Factors Hypertension: no Hyperlipidemia: no Diabetes: no Atrial Fibrillation: no Tobacco: no Vickie Muller PGY-2 Neurology resident * Stacy Lopez RD/OMAIRA - 10/26/2022 8:34 AM CDT Clinical Nutrition Assessment Brief Synopsis: Patient is at Nutrition Risk; Specific criteria can be found in assessment below Nutrition Plan: NPO Tube Feeding Recommendations Jevity 1.5 at 45 ml/hr. Provides 1620 kcal, 69 g protein, 233 g carbohydrate, 821 ml free water. +50 ml q 6 hrs free water flush or per MD if on IVF +100 ml q4 hrs free water flush or per MD if not on additional fluids Recommendations to Physician: Alter TF to above since patient remains extubated Comments: Pt scheduled for reassessment. Patient remains extubated and receiving Vital High Protein@ 55ml/hr, recommend adjusting to above. Noted a1c of 6.0, will monitor blood glucose levels on Jevity 1.5. Potential plan for PEG in the future. Last BM 10/22, incision to right head. RD to follow. Assessment: Med/Surg History and Clinical Diagnoses: 41yo M who developed acute onset L sided weakness, L-sidedsensory deficits, and dysarthria. L sided weakness resolved in route and dysarthria improved in route. On arrival patient noted to L gaze plasy, L hemainopsia, mild dysarthria, and extinction. Height: 162.6 cm (5' 4 ) Weight: 95.3 kg (210 lb) BMI: Body mass index is 36.05 kg/m??. BMI Range: Severely Obese Class 2 IBW/lb (Calculated) Female: 120, Recent Weights/Methods 12/09/2018 0804 01/09/2020 1050 01/10/2021 1117 08/25/2021 0819 02/08/2022 1532 10/19/2022 0803 10/19/2022 0827 10/20/2022 1400 Weight: 81.6 kg (180 lb) 86.5 kg (190 lb 9.6 oz) 80 kg (176 lb 6.4 oz) 84.8 kg (187 lb) 93.3 kg (205 lb 11.2 oz) 95.3 kg (210 lb 1.3 oz) 95.3 kg (210 lb 1.3 oz) 95.3 kg (210 lb) Weight Method (Utilize Scales): Stated -- -- Standing -- -- Bedscale -- Wt Comments: reviewed, weight trending up Diet order accuracy Current diet order: NPO Current tube feeding order: VHP @ 55ml/hr Nutrition recommendation: alter/change nutrition order P.O.Intake for the past 48 hrs: No data recorded Food Allergies: No known food allergies GI Concerns: None Chewing/Swallowing: Other (Comment) (has not been assessed by SIGNALING PROJECT ENGINEER) Pain affectingintake: No Estimated Needs: KCAL: 1903-5840 (25-30kcal/kg of IBW) Protein (g): 66-77 (1.2-1.4gm/kg of IBW) Fluid (ml): 1 ml/kcal Needs based on: Kcal/kg- (Comment) (55kcal/kg of IBW) Recommended Access Route: TF Laboratory values: Recent Labs Component Name 10/26/22 0002 10/25/22 0007 10/23/22202810/20/22 0302 10/19/22 0824 10/19/22 0808 06/15/22 0757 12/09/18 0812 07/25/18205503/01/16 0817 0000 BUN 13 16 - - 10 7 9 - CREATININE 0.54* 0.48* 0.56 - 0.84 - 0.74 0.82 0.93 0.60 - NA 139 140 140 - 139 - 138 - - - - POTASSIUM 3.3* 4.0 4.1 - 4.2 - 5.1* 3.8 3.8 3.6 - CL 105 106 110* - 108* - 107 - - - - CO2 24 25 23 - 21* - 23 24 21* 21* - GLUCOSE 113 116* 119* - 109 - 104 120* 105 83 - CALCIUM 8.4 9.0 8.5 - 8.9 - 8.9 9.4 9.2 8.1* - PROT - - - - 7.7 - 7.5 - - - - ALB - - - - 3.5 - 3.6 - - - - TBILI - - - - 0.1* - 0.1* - - - - ALKPHOS - - - - 52 - 44 56 52 111 - ALT - - - - 16 - 9 17 12* 21 - AST - - - - 19 - 17 18 20 25 - ANIONGAP 13 13 11 - 14 - 13 12 11 10 - BCR 24* 33* 25* - 15 - 16 - - - - OSMOLALITY 289 292 292 - 289 - 286 - - - - AGRATIO - - - - 0.8* - 0.9* - - - - EGFR >90 >90 >90 - >90 - >90 >60 >60 >60 - EGFRAFR - - - - - - - >60 >60 >60 - - = values in this interval not displayed. Medications: Current Facility-Administered Medications Medication ??? *Hold/Avoid Medication ??? *Hold/Avoid Medication ??? 0.9% NaCl injection 3 mL And ??? 0.9% NaCl injection 1-10 mL ??? 0.9% NaCl injection 3 mL And ??? 0.9% NaCl injection 3 mL ??? acetaminophen (Tylenol) tablet 500 mg ??? artificial tears ophthalmic ointment ??? atorvastatin (Lipitor) tablet 80 mg ??? cefTRIAXone (Rocephin) 2,000 mg in 0.9% NaCl IV 50 mL IVPB ??? chlorhexidine (Peridex) 0.12 % oral solution 15 mL ??? dextrose 10 % IV bolus Or ??? dextrose 10 % IV bolus ??? fentaNYL (PF) (Sublimaze) injection 50 mcg ??? gadobutrol (Gadavist) injection ??? glucagon (Glucagen) injection 1 mg ??? glucose (Diabetic Use) (Dex4 Glucose) oral liquid ??? glucose (Diabetic Use) oral gel ??? glucose chew tablet 4 tablet ??? guaiFENesin (Robitussin) solution 10 mL ??? heparin 100 units/mL in dextrose 5 % infusion ??? iopamidol (Isovue 370) 76 % contrast ??? lansoprazole (Prevacid) suspension 30 mg ??? loratadine (Claritin) tablet 10 mg ??? metoprolol tartrate IR (Lopressor) tablet 25 mg ??? oxymetazoline (Afrin) 0.05 % nasal spray 2 spray ??? polyethylene glycol 3350 (Miralax) packet 17 g ??? senna-docusate (Senokot-S) tablet 1 tablet ??? tamsulosin (Flomax) capsule 0.4 mg ??? vancomycin (Vancocin) 1,250 mg in 250 mL NaCl IVPB Premix ??? vancomycin (Vancocin) IV dose per pharmacy ??? verapamil (Isoptin) tablet 40 mg ??? vitamin D3 (Cholecalciferol) 25 MCG (1000 UNITS) tablet 2,000 Units Skin/Wound: WDL Education needed: Stroke Nutrition Therapy Education Provided: Prior to Discharge Nutrition Care Process (1) Nutrition Diagnostic Statement: Inadequate oral intake related to:: decreased ability to consume or tolerate food and/or fluids due to illness as evidenced by:: oral intake insufficient to meet estimated requirements Nutrition Diagnostic Statement Progress: Nutrition problem continues Nutrition Intervention: Meals and snacks: Monitoring: GI, TF, WT, labs, medications Evaluation: Nutrition Goal: Total intake will meet estimated nutrient needs Nutrition Goal Timeframe: Throughout stay Nutrition Goal Progress: Continue with current goal Ascom [id number] * Arturo Delacruz MD - 10/26/2022 8:16 AM CDT [facility] Infectious Diseases Progress Note Date of Admission: 10/19/2022 7:53 AM Length of Stay: Day 7 Room: 309/01 Attending: Emir Vail MD Subjective No acute events overnight. Afebrile. Pt cannot verbalize but makes thumbs up sign. Antimicrobial History Current Antibiotics Vancomycin 10/25 - present Ceftriaxone 10/25 - present ?? [facility] Cef[facility]olin 10/20 Vancomycin 10/20 Inpatient Medications ??? *Hold/Avoid Medication Other DIRECTED ??? *Hold/Avoid Medication Other 0800 and 1999 ??? 0.9% NaCl 3 mL Intracatheter q8h ??? 0.9% NaCl 3 mL Intracatheter q8h ??? artificial tears Each Eye q8h ??? atorvastatin 80 mg Enteral Tube AT BEDTIME ??? cefTRIAXone 2 g Intravenous q12h ??? chlorhexidine 15 mL Mouth/Throat BID ??? gadobutrol Intravenous Contrast - Once ??? guaiFENesin 10 mL Enteral Tube q12h ??? iopamidol Intravenous Contrast - Once ??? lansoprazole 30 mg Enteral Tube QDAY BEFORE BREAKFAST ??? loratadine 10 mg Enteral Tube QDAY ??? magnesium sulfate 1 g Intravenous Once ??? metoprolol tartrate IR 25 mg Enteral Tube q12h ??? polyethylene glycol 3350 17 g Enteral Tube QDAY ??? potassium chloride 40 mEq Enteral Tube Once ??? senna-docusate 1 tablet Enteral Tube QDAY ??? tamsulosin 0.4 mg Enteral Tube QDAY ??? vancomycin 1,250 mg Intravenous q8h ??? vancomycin (VANCOCIN) IV dose per pharmacy Does not apply DIRECTED ??? verapamil 40 mg Enteral Tube q8h ??? Vitamin D3 (cholecalciferol) 2,000 Units Enteral Tube QDAY heparin, 500-2,150 Units/hr, Last Rate: 1,500 Units/hr (10/26/22 0721) Objective Vitals BP 133/73 Pulse (!) 115 Temp 97.1 ??F (36.2 ??C) (Axillary) Resp 20 Ht 1.626 m (5' 4 ) Wt95.3 kg (210 lb) SpO2 99% Temp (24hrs), Av ??F (36.7 ??C), Min:97.1 ??F (36.2 ??C), Max:98.9 ??F (37.2 ??C) Physical Exam Physical Exam Vitals and nursing note reviewed. Constitutional: General: She is awake. She is not in acute distress. Appearance: She is ill-appearing. She is not toxic-appearing or diaphoretic. HENT: Head: Comments: Right hemicraniectomy surgical wound clean, no discharge or erythema Cardiovascular: Rate and Rhythm: Normal rate and regular rhythm. Pulses: Normal pulses. Heart sounds: Normal heart sounds. No murmur heard. No friction rub. No gallop. Pulmonary: Effort: Pulmonary effort is normal. No respiratory distress. Breath sounds: Normal breath sounds. No wheezing, rhonchi or rales. Chest: Breasts: Right: Normal. No mass. Left: Normal. No mass. Abdominal: General: Abdomen is flat. Bowel sounds are normal. There is no distension. Palpations: Abdomen is soft. Tenderness: There is no abdominal tenderness. Musculoskeletal: Right lower leg: No edema. Left lower leg: No edema. Neurological: Comments: L hemiparesis Moves R hand/arm purposefully Seems to understand questions, follows commands Lines: left forearm PIV, left hand PIV Lab Review CBC: Recent Labs Component Name 10/26/22 0002 10/25/22 0007 10/23/22202810/23/22 0129 10/22/22 0153 WBC 16.1* 16.6* 17.4* - - RBC 2.64* 2.65* 2.58* - - HGB 8.1* 8.2* 8.0* - - HCT 25.1* 25.1* 24.4* - - MCV 95.1 94.7 94.6 - - PLT - - - - 199 - = values in this interval not displayed. BMP: Recent Labs Component Name 10/26/22 0002 10/25/22 0007 10/23/22202810/20/22 0302 10/19/22 0824 06/15/22 0757 NA 139 140 140 - 139 138 CL 105 106 110* - 108* 107 CO2 24 25 - BUN 13 16 14 - 13 12 CREATININE 0.54* 0.48* 0.56 - 0.84 0.74 ALB - - - - 3.5 3.6 PROT - - - - 7.7 7.5 - = values in this interval not displayed. estimated creatinine clearance is 156.6 mL/min (A) (by C-G formula based on SCr of 0.54 mg/dL (L)). LFTs: Recent Labs Component Name 10/19/22 0824 06/15/22 0757 12/09/18 0812 07/25/186 03/01/16 0817 02/18/16 1209 07/07/13 2319 ALKPHOS 52 44 56 52 111 - 55 ALT 16 9 17 12* 21 - 15 AST 19 17 18 20 25 - 10 ALBUMIN - - 4.5 4.3 2.5* - 3.8 LIPASE - - - - - - 157 - = values in this interval not displayed. Coagulation: Recent Labs Component Name 10/26/22 0647 10/26/22 0426 10/26/22 0155 10/25/22 2102 10/25/22 1641 10/23/222028 PT - 13.6 - - 13.4 13.4 INR - 1.0 - - 1.0 1.0 PTT 44.3* - 20.5* 33.3 24.8 21.4* Microbiology, Imaging and other diagnostic tests MICROBIOLOGY: Blood culture: 10/23 No growth 10/24 no growth ?? Other serologies: 10/23 MRSA DNA by PCR not detected 10/25 HIV Antigen/Antibody 1 & 2 non-reactive 10/25 Hepatitis C Antibody non-reactive HISTOPATHOLOGY: None at this admission IMAGING & PROCEDURES: 10/25 CT chest abdomen pelvis with contrast: 1.Occlusion of the right distal external iliac [...] process in the chest abdomen or pelvis 10/26 CT head: 1. Redemonstration of evolving large right MCA territory acute to subacute infarct without definite evidence of hemorrhagic transformation. Unchanged minimal leftward midline shift of about 2 mm at the level of foramen of Monro and effacement of the left lateral ventricle. 2. Redemonstration of postsurgical changes from right-sided decompressive hemicraniectomy, unchanged compared to prior study. Assessment and Recommendations Aortic valve vegetation -No preceding signs/symptoms of infection. Will work-up for infectious endocarditis, but seems morelikely to be noninfectious.?? Cardio-embolic strokes ?? Plan/Recommendations Continue vancomycin IV as per pharmacy protocol Continue ceftriaxone 2 g IV every 24 hours With cultures negative to date, please send additional infectious work-up: -Fungal blood culture -AFB blood culture -Bartonella serologies -Coxiella/Q fever serology -Chlamydia serologies, IgG and IgM, [facility]#[id number] -Mycoplasma serologies, IgG and IgM, [facility]#[id number] Follow blood cultures Follow rheumatologic and hypercoagulable work up Check CBC with auto diff and CMP weekly while on IV antibiotics Thank you for allowing us to participate in the care of this patient. We will continue to follow and monitor with you closely. Arturo Delacruz MD PhD Home Care Nurse [facility] Infectious Disease Pager: [phone] 40 minutes spent in the care of this patient, including review of inpatient documentation, review of actual radiology images and interpretations, patient history/exam, and counseling. * Sosa Degroot MD - 10/26/2022 7:59 AM CDT Images from the original note were not included. Vascular Neurology Fellow Plan of Care Note Consuelo Darby is a 41 year old woman presenting to [facility] ED for acute left sensorimotor deficits, left gaze palsy, dysarthria and headache. 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 IV TNKwas administred within 2 hrs of LKW, she underwent MT with TICI 2b recanalization. Now s/p R decompressive hemicrani on 10/20. Left AV cusp vegetation found on SARAH c/f fibroelastoma vs marantic vegetation vs IE.AC indicated in light of SARAH finding however pending completion of infectious workup and ID consult. MRI brain with scattered cortical R hemisphere infarct and HI1 in stroke bed. Infectiousworkup negative to date and AC started. Stroke etiology: cardioembolic. Plan: - Heparin gtt; aPTT goal 60-80 - Vascular surgery consult for occluded R distal ext iliac a - Na goal 150 - 155 - SBP goal 140 - 160 - STAT CT head if acute clinical change - ICP monitoring NSGY following - maintain normothermic and euglycemic - PT/OT/SIGNALING PROJECT ENGINEER when stable - outpt follow-up for 3mm left upper lobe nodule Temp: [97.1 ??F (36.2 ??C)-98.9 ??F (37.2 ??C)] 97.1 ??F (36.2 ??C) Pulse: [82-115] 115 Resp: [16-28] 20 BP: (97-142)/(64-91) 133/73 Recent Labs Component Name 10/26/22 0002 WBC 16.1* Recent Labs Component Name 10/26/22 0002 10/25/22 0007 10/23/22202806/15/22 0757 12/09/18 0812 07/25/18205503/01/16 0817 SODIUM - - - - 138 135* 141 POTASSIUM 3.3* 4.0 4.1 - 3.8 3.8 3.6 CHLORIDE - - - - 102 103 110* CO2 24 25 23 - 24 21* 21* BUN 13 16 14 - 10 7 9 CREATININE 0.54* 0.48* 0.56 - 0.82 0.93 0.60 EGFR >90 >90 >90 - >60 >60 >60 GLUCOSE 113 116* 119* - 120* 105 83 CALCIUM 8.4 9.0 8.5 - 9.4 9.2 8.1* - = values in this interval not displayed. Sosa Degroot MD, PhD Vascular and Interventional Neurology Fellow * Emir Vail MD - 10/26/2022 7:35 AM CDT Images from the original note were not included. I have seen and examined the patient with the resident and I agree with the findings and plan of care as documented by the resident. Date of Service: 10/26/2022 Emir Vail MD Multidisciplinary rounds were held at 9am and the patient's care and recovery plan were reviewed and developed with the assembled team. Consuelo Darby is a 41 year old 41 year old??with GERD, tobacco, presented on 10/19 with Right MCA syndrome s/p TNK. CTA 1 M1 occlusion. S/P mechanical thrombectomy with R M1 recanalization and TICI2b. CT 10/20/22 with edema and mildshift. On exam, lid apraxia and following briskly on right; slight LLE movement. Hx of OCP use. S/Pdecompressive right hemicraniectomy. Echo showed a mobile aortic valve vegetation. Mechanism of infarct is the aortic valve vegetation of unknown etiology. Possibilities include infectious, autoimmune, aortic valve fibroelastoma. Cardiac CT was obtained to further characterize the lesion and showed a 6 mm lesion favored to represent a vegetation rather than a fibrosed hemangioma. CTA head/neck was reviewed with neuro-radiology and neuro-IR. There is question of two small focal outpouchings of the left A4 segment and left MCA. Although the vascular abnormalities present on CTAare more proximal and likely represent a small aneurysm, the possibility of associated mycotic aneurysms cannot be excluded. ID consult placed for evaluation and input and recommended broad spectrum ABx pending 48 hour bloodcultures. Blood cultures at 48 hours are negative Anticoagulation with heparin is reasonable although she has a sizable stroke and the risk of hemorrhage into this is present. - Anticoagulation with heparin gtt. - Appreciate input consulting teams - Continue q1h neurological monitoring. - Repeat CT at 0400 daily or if neurologic decline - Contact neurology immediately if neurologic decline - On ASA and statin, can discontinue aspirin after starting heparin gtt - Follow rheumatologic and hypercoagulable work up - Continue ABx pending cultures The case and plan was discussed extensively with the family who agreed with the plan and verbalizedtheir understanding of the potential risks and benefits. Problem List Right middle cerebral artery stroke (CMS/HCC) (POA: Unknown) Acute cerebrovascular accident (CVA) due to embolism of right middle cerebral artery (CMS/HCC) (POA: Yes) Nihss score 9 (POA: Yes) Received intravenous tissue plasminogen activator (tPA) in emergency department (POA: Yes) GERD (gastroesophageal reflux disease) (POA: Yes) Hemianopsia (POA: Yes) Weakness (POA: Yes) Left-sided sensory deficit present (POA: Yes) Gaze palsy (POA: Yes) Migraine (POA: Unknown) Hypertension (POA: Unknown) See Resident note for the remaining problem specific plan. 7 MEDICATIONS FOR CURRENT ENCOUNTER: SCHEDULED MEDICATIONS: *Hold/Avoid Medication, Other, 0800 and 2000 *Hold/Avoid Medication, Other, DIRECTED 0.9% NaCl injection 3 mL, Intracatheter, q8h 0.9% NaCl injection 3 mL, Intracatheter, q8h artificial tears ophthalmic ointment, Each Eye, q8h atorvastatin (Lipitor) tablet 80 mg, Enteral Tube, AT BEDTIME cefTRIAXone (Rocephin) 2,000 mg in 0.9% NaCl IV 50 mL IVPB, Intravenous, q12h chlorhexidine (Peridex) 0.12 % oral solution 15 mL, Mouth/Throat, BID gadobutrol (Gadavist) injection, Intravenous, Contrast - Once guaiFENesin (Robitussin) solution 10 mL, Enteral Tube, q12h iopamidol (Isovue 370) 76 % contrast, Intravenous, Contrast - Once lansoprazole (Prevacid) suspension 30 mg, Enteral Tube, QDAY BEFORE BREAKFAST loratadine (Claritin) tablet 10 mg, Enteral Tube, QDAY magnesium sulfate 1 g in 100 mL bolus, Intravenous, Once metoprolol tartrate IR (Lopressor) tablet 25 mg, Enteral Tube, q12h polyethylene glycol 3350 (Miralax) packet 17 g, Enteral Tube, QDAY potassium chloride (Klor-Con) packet 40 mEq, Enteral Tube, Once senna-docusate (Senokot-S) tablet 1 tablet, Enteral Tube, QDAY tamsulosin (Flomax) capsule 0.4 mg, Enteral Tube, QDAY vancomycin (Vancocin) 1,250 mg in 250 mL NaCl IVPB Premix, Intravenous, q8h vancomycin (Vancocin) IV dose per pharmacy, Does not apply, DIRECTED verapamil (Isoptin) tablet 40 mg, Enteral Tube, q8h vitamin D3 (Cholecalciferol) 25 MCG (1000 UNITS) tablet 2,000 Units, Enteral Tube, QDAY [COMPLETED] potassium chloride (Klor-Con) packet 40 mEq, Enteral Tube, Once ?? [] iopamidol (Isovue 370) 76 % contrast, Intravenous, Contrast - Once CONTINUOUS MEDICATIONS: ?? heparin 100 units/mL in dextrose 5 % infusion, Intravenous, Continuous PRN MEDICATIONS: Or 0.9% NaCl injection 1-10 mL, Intracatheter, PRN 0.9% NaCl injection 3 mL, Intracatheter, PRN acetaminophen (Tylenol) tablet 500 mg, Enteral Tube, q4h PRN dextrose 10 % IV bolus, Intravenous, PRN dextrose 10 % IV bolus, Intravenous, PRN fentaNYL (PF) (Sublimaze) injection 50 mcg, Intravenous, q2h PRN glucagon (Glucagen) injection 1 mg, Subcutaneous, PRN glucose (Diabetic Use) (Dex4 Glucose) oral liquid, Oral, PRN glucose (Diabetic Use) oral gel, Oral, PRN glucose chew tablet 4 tablet, Oral, PRN ?? oxymetazoline (Afrin) 0.05 % nasal spray 2 spray, Each Nostril, BID PRN Patient Vitals for the past 24 hrs: Temp Pulse Resp BP 10/26/22 0700 -- (!) 115 20 133/73 10/26/22 0600 97.1 ??F (36.2 ??C) 92 16 133/69 10/26/22 0500 -- 96 20 126/69 10/26/22 0400 98.5 ??F (36.9 ??C) 99 20 136/91 10/26/22 0300 -- 85 18 127/86 10/26/22 0200 98.7 ??F (37.1 ??C) 87 18 126/71 10/26/22 0100 -- 95 17 128/91 10/26/22 0000 98 ??F (36.7 ??C) 92 18 115/69 10/25/22 2300 -- 82 18 115/78 10/25/22 2200 97.8 ??F (36.6 ??C) 100 27 97/81 10/25/22 2102 -- 108 26 -- 10/25/22 2100 -- 108 28 142/76 10/25/22 2000 98.5 ??F (36.9 ??C) (!) 113 21 132/82 10/25/22 1800 98.9 ??F (37.2 ??C) (!) 112 21 122/78 10/25/22 1700 -- (!) 113 22 133/87 10/25/22 1600 97.6 ??F (36.4 ??C) 94 20 126/68 10/25/22 1500 -- (!) 112 22 139/70 10/25/22 1400 98 ??F (36.7 ??C) (!) 114 24 129/66 10/25/22 1300 -- (!) 110 24 131/76 10/25/22 1200 97.6 ??F (36.4 ??C) 102 19 126/83 10/25/22 1100 -- 98 22 132/65 10/25/22 1000 97.7 ??F (36.5 ??C) 83 21 112/71 10/25/22 0900 -- 98 21 124/66 10/25/22 0800 98 ??F (36.7 ??C) 90 20 118/64 Recent Labs Component Name 10/26/22 0002 10/25/22 0007 10/23/222028 NA 139 140 140 CL 105 106 110* CO2 24 25 23 BUN 13 16 14 CREATININE 0.54* 0.48* 0.56 CALCIUM 8.4 9.0 8.5 PHOS 3.5 3.7 3.1 Recent Labs Component Name 10/26/22 0002 10/25/22 0007 10/23/22202810/23/22 0129 10/22/22 0153 WBC 16.1* 16.6* 17.4* - - RBC 2.64* 2.65* 2.58* - - HGB 8.1* 8.2* 8.0* - - HCT 25.1* 25.1* 24.4* - - PLT - - - - 199 - = values in this interval not displayed. Recent Labs Component Name 10/20/22 0302 06/15/22 0757 CHOL 173 204* TRIG 201* 251* HDL 42 37* LDLCALC 91 117* Recent Labs Component Name 10/20/22 1015 HGBA1C 6.0* EAG 126 Recent Labs Component Name 10/26/22 0002 10/25/22 0007 10/23/222028 PLTCOUNT 446* 402* 310 * Consuelo Prado - 10/26/2022 7:31 AM CDT Images from the original note were not included. Neurocritical Care Progress Note Consuelo Darby Age: [age] year old Date of : 1980 Date of Admission: 10/19/2022 Hospital Day: 7 Subjective History of Present Illness Consuelo Darby is a 41 year old female who developed acute L sided weakness, L sided sensory deficits, and dysarthria. L sided weakness resolved in route and dysarthria improved in route. On arrival,R gaze palsy and L hemianopsia. NIHSS:7. Pt was given TNK. TICI2b revascularization of R MCA M1 occlusion.?? ICU Timeline: Consuelo Darby is a 41 year old female who developed acute L sided weakness, L sided sensory deficits, and dysarthria. L sided weakness resolved in route and dysarthria improved in route. On arrival,R gaze palsy and L hemianopsia. NIHSS:7. Pt was given TNK. TICI2b revascularization of R MCA M1 occlusion.?? Interval History: 10/23 - LEONCIO and ICP monitor removed 10/23 - SARAH showed 6x7 independently mobile mass on left coronary cusp.??CT cardio angio on 10/24 favored vegetation, rather than fibrosed hemangioma. 10/24 - Extubated 10/24 - Started on vanc and ceftriaxone 10/25 - Started on heparin (PTT goal of 60-80) Objective BP 133/73 Pulse (!) 115 Temp 97.1 ??F (36.2 ??C) (Axillary) Resp 20 Ht 1.626 m (5' 4 ) Wt95.3 kg (210 lb) SpO2 99% Temp (30hrs) Max:99.3 ??F (37.4 ??C) Body mass index is 36.05 kg/m??. Exam - General Con - NAD, afebrile Heent -??L scalp surgical site w/ carla, soft, pupils 3 mm bilaterally Neck - no masses, trachea midline CV - RRR, no chest wall tenderness Pulm -??2L NC Abd - soft, lower abdomen hematoma from femoral site is improving?? Exam - Neurologic Surgical site of hemicraniectomy is clean, dry, intact, soft to palpation Pupils 3 mm and reactive bilaterally Able to open eyes, follows commands intermittently Able to move RUE and RLE spontaneously Able to wiggle RLE digits Unable to wiggle LLE digits Gait Deferred Labs: Lab Results-Last 24 Hours Procedure Component Value Units Date/Time CARDIOLIPIN ANTIBODY IGA [[id number]] Collected: 10/23/222028 Order Status: Completed Specimen: Blood Updated: 10/26/22 1011 Cardiolipin Antibody IgA <10 APL Comment: INTERPRETIVE INFORMATION: Cardiolipin Antibodies, IgA <=11 APL: Negative 12-19 APL: Indeterminate 20-80 APL: Low to Moderately Positive 81 APL or above: High Positive Performed By: [facility] [address] [place] [id number] Microfilm Mounter: Boo Bond MD, PhD CLIA Number: [id number] VANCOMYCIN LEVEL TROUGH [[id number]] (Normal) Collected: 10/26/22 0838 Order Status: Completed Specimen: Blood Updated: 10/26/22 0959 Vancomycin Trough 14.0 ug/mL Narrative: See institution protocol. LAB MISC TEST [[id number]] Collected: 10/26/22 0737 Order Status: Sent Specimen: Blood Updated: 10/26/22 0739 PTT [facility] [[id number]] Order Status: Sent Specimen: Blood PTT [facility] [[id number]] (Abnormal) Collected: 10/26/2247 Order Status: Completed Specimen: Blood Updated: 10/26/22716 APTT 44.3 Seconds Comment: Suggested therapeutic range for full dose I.V. unfractionated heparin therapy for venous thromboembolism is 71 to 109 seconds. GLUCOSE - POINT OF CARE [[id number]] (Abnormal) Collected: 10/26/22711 Order Status: Completed Specimen: Blood Updated: 10/26/22712 Glucose WB/POC 144 mg/dL Specimen Type Cap Fingerstick LAB MISC TEST [[id number]] Order Status: Canceled Specimen: Blood PT-INR [facility] [[id number]] (Normal) Collected: 10/26/226 Order Status: Completed Specimen: Blood Updated: 10/26/22458 PT 13.6 Seconds INR 1.0 Comment: The suggested therapeutic range for standard coumadin (warfarin) therapy is an INR of 2.0-3.0. For high-risk patients (Mechanical Mitral Valve Prosthesis, etc.), the suggested prophylactic therapeutic range is an INR of 2.5-3.5. BETA-2 GLYCOPROTEIN 1 ANTIBODY IGA [[id number]] Collected: 10/23/222028 Order Status: Completed Specimen: Blood Updated: 10/26/22 0243 Beta-2 Glycoprotein Antibody IgA <10 TRUDI Comment: Performed By: [facility] [address] [place] [address] Microfilm Mounter: Boo Bond MD, PhD CLIA Number: [id number] BETA-2 GLYCOPROTEIN 1 ANTIBODY IGG/IGM PANEL [[id number]] Collected: 10/23/222028 Order Status: Completed Specimen: Blood Updated: 10/26/22 0243 Beta-2 Glycoprotein Antibody IgG <10 [facility] Beta-2 Glycoprotein Antibody IgM <10 [facility] Comment: INTERPRETIVE INFORMATION: [id number] I, IgG and IgM Antibody The persistent [...] other criteria phospholipid antibody tests. Performed By: [facility] [address] [place], [place] [id number] Microfilm Mounter: Boo Bond MD, PhD CLIA Number: [id number] CARDIOLIPIN ANTIBODY IGM [[id number]] Collected: 10/23/222028 Order Status: Completed Specimen: Blood Updated: 10/26/22231 Cardiolipin Antibody IgM <10 MPL Comment: INTERPRETIVE INFORMATION: Anti-Cardiolipin IgM <=12 MPL: [...] other criteria phospholipid antibody tests. Performed By: [facility] [address] [place], [place] [id number] Microfilm Mounter: Boo Bond MD, PhD CLIA Number: [id number] CARDIOLIPIN ANTIBODY IGG [[id number]] Collected: 10/23/222028 Order Status: Completed Specimen: Blood Updated: 10/26/22 023 Cardiolipin Antibody IgG <10 GPL Comment: INTERPRETIVE INFORMATION: Anti-Cardiolipin IgG Ab <=14 [...] other criteria phospholipid antibody tests. Performed By: [facility] [address] [place] [id number] Microfilm Mounter: Boo Bond MD, PhD CLIA Number: [id number] PTT [facility] [[id number]] (Abnormal) Collected: 10/26/22 0155 Order Status: Completed Specimen: Blood Updated: 10/26/22225 APTT 20.5 Seconds Comment: Suggested therapeutic range for full dose I.V. unfractionated heparin therapy for venous thromboembolism is 71 to 109 seconds. PHOSPHORUS BLOOD [[id number]] (Normal) Collected: 10/26/221 Order Status: Completed Specimen: Blood Updated: 10/26/2229 Phosphorus 3.5 mg/dL MAGNESIUM BLOOD [[id number]] (Normal) Collected: 10/26/221 Order Status: Completed Specimen: Blood Updated: 10/26/22 003 Magnesium 1.9 mg/dL BASIC METABOLIC PANEL (CALCIUM TOTAL) [[id number]] (Abnormal) Collected: 10/26/221 Order Status: Completed Specimen: Blood Updated: 10/26/22 0030 BUN 13 mg/dL Creatinine 0.54 mg/dL Sodium 139 mmol/L Potassium 3.3 mmol/L Chloride 105 mmol/L CO2 24 mmol/L Glucose 113 mg/dL Calcium 8.4 mg/dL Anion Gap 13 BUN/Creatinine Ratio 24 Osmolality Calculated 289 mOsm/kg eGFR by CKD-EPI >90 mL/min/1.73 m2 CBC W AUTO DIFFERENTIAL [[id number]] (Abnormal) Collected: 10/26/22 0002 Order Status: Completed Specimen: Blood Updated: 10/26/22 0012 WBC 16.1 10??3/uL RBC 2.64 10??6/uL Hemoglobin 8.1 g/dL Hematocrit 25.1 % MCV 95.1 fL MCH 30.7 pg MCHC 32.3 g/dL RDW-SD 46.2 fL RDW-CV 13.5 % Platelet Count 446 10??3/uL MPV 10.0 fL nRBC Absolute 0.04 10??3/uL nRBC Auto 0.2 /100 WBC Neutrophils % 63.5 % Lymphocytes % 22.7 % Monocytes % 8.3 % Eosinophils % 3.2 % Basophil % 0.4 % Neutrophils Absolute 10.24 10??3/uL Lymphocyte Absolute 3.65 10??3/uL Monocytes Absolute 1.34 10??3/uL Eosinophils Absolute 0.51 10??3/uL Basophils Absolute 0.06 10??3/uL Immature Granulocytes % 1.9 % Immature Granulocytes Absolute 0.30 GLUCOSE - POINT OF CARE [[id number]] Collected: 10/25/222313 Order Status: Completed Specimen: Blood Updated: 10/25/222314 Glucose WB/POC 114 mg/dL Specimen Type Cap Fingerstick PTT [facility] [[id number]] Order Status: Canceled Specimen: Blood PTT [facility] [[id number]] (Normal) Collected: 10/25/222101 Order Status: Completed Specimen: Blood Updated: 10/25/222131 APTT 33.3 Seconds Comment: Suggested therapeutic range for full dose I.V. unfractionated heparin therapy for venous thromboembolism is 71 to 109 seconds. GLUCOSE - POINT OF CARE [[id number]] (Abnormal) Collected: 10/25/221853 Order Status: Completed Specimen: Blood Updated: 08/16/23 1856 Glucose WB/POC 122 mg/dL Specimen Type Cap Fingerstick PT-INR [facility] [[id number]] (Normal) Collected: 10/25/221640 Order Status: Completed Specimen: Blood Updated: 10/25/221718 PT 13.4 Seconds INR 1.0 Comment: The suggested therapeutic range for standard coumadin (warfarin) therapy is an INR of 2.0-3.0. For high-risk patients (Mechanical Mitral Valve Prosthesis, etc.), the suggested prophylactic therapeutic range is an INR of 2.5-3.5. PTT [facility] [[id number]] (Normal) Collected: 10/25/221640 Order Status: Completed Specimen: Blood Updated: 10/25/221718 APTT 24.8 Seconds Comment: Suggested therapeutic range for full dose I.V. unfractionated heparin therapy for venous thromboembolism is 71 to 109 seconds. Imaging: CT CHEST ABDOMEN PELVIS W CONT Result Date: 10/25/2022 Impression: 1.Occlusion of the right distal external [...] verification. > Dictated by Clarisa Cantrell MD (resident services coordinator). I, Alexx Lopez have personally reviewed and interpreted this examination/study. > Interpreting Provider: Alexx Lopez on 10/25/2022 4:[address] HEAD WO CONTRAST Result Date: 10/25/2022 IMPRESSION: Redemonstrated postoperative changes consistent with right calvarial hemicraniectomy. Fluid collection overlying the lateral right cerebral hemisphere within the craniectomy defect containing some recent blood products. The overall size of this fluid collection is less than on previous study. In addition, there is less air/gas within this defect. Evolving large recent right cerebral hemisphere infarct with mass effect and approximately 2 mm of midline shift right to left. There appears to be slightly less mass effect and midline shift on today's study. Continued follow-up is recommended. Small recent cortical infarct in the lateral left frontal lobe as well as small recent infarc t in left martínez radiata which appears similar to previous study. Clinical correlation recommended.The report is dictated by Miranda Bowen MD (resident services coordinator) Joni Ornelas MD have personally reviewed and interpreted this examination/study. > Interpreting Provider: Joni Fabian MD on 10/25/2022 2:[address] CARDIAC ANGIO STRUCT MORPH Result Date: 10/25/2022 Impression: 1. 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 2. Patent coronary vessels within the limitation of the motion artifact given the elevated heart during this exam > Interpreting Provider: Pepe Gonzalez MD on 10/25/2022 12:03 AM MRI BRAIN WWO CONTRAST Result Date: 10/24/2022 IMPRESSION: 1.Redemonstration of postoperative changes of a right hemicraniectomy with expected postsurgical changes as outlined above. 2.Redemonstration of evolving large right MCA territory infarction with extensive cytotoxic edema and mild external herniation of the brain through the craniectomydefect. Persistent local mass effect on the right cerebral hemisphere, effacement of the right lateral ventricle, and approximately 3-4 mm [id number] midline shift, grossly similar to the prior. 3.Mild dilation of the left lateral ventricle may represent subtle left ventricular entrapment, overall grossly similar to prior. 4.Additional multiple foci of abnormal diffusion within the left frontotemporal lobes with associated T2 FLAIR hyperintensity representing additional small acute to subacute infarcts, likely of cardioembolic etiology. Findings communicated to Dr. Mohr by Dr. Major at 1138 hours on 10/24/2022 with readback comprehension and verification. Report dictated by Tim Major MD (resident services coordinator). IJasper MD have personally reviewed and interpreted this examination/study. > Interpreting Provider: Jasper Sifuentes MD on 10/24/2022 1:[address] HEAD WO CONTRAST Result Date: 10/23/2022 IMPRESSION: 1.Redemonstration of postsurgical changes of decompressive craniectomy and evolving right middle cerebral artery territory infarct. 2.No hemorrhagic transformation. 3.Extensive cytotoxic edema and mass effect with approximately 2 mm midline shift, [place] similar or slightly improved from prior. 4.Stable right intracranial pressure monitor. The report is dictated by Miranda Bowen MD(resident services coordinator) Jasper Ornelas MD have personally reviewed and interpreted this examination/study. > Interpreting Provider: Jasper Sifuentes MD on 10/23/2022 9:[address] HEAD WO CONTRAST Result Date: 10/22/2022 IMPRESSION: 1.Redemonstration of postsurgical changes of decompressive right hemicraniectomy for evolving right middle cerebral artery territory infarct. There is significant edema and mass effect with approximately 4 mm of midline shift, unchanged from prior. No evidence of new acute intracranial hemorrhage. > Interpreting Provider: Lonnie Rae MD on 10/22/2022 3:[address] HEAD WO CONTRAST Result Date: 10/22/2022 IMPRESSION: 1.Stable appearance of postsurgical changes of decompressive right hemicraniectomy for evolving right middle cerebral artery territory infarct. There is significant edema and mass effect with approximately 4 mm of midline shift, unchanged from prior. No evidence of new acute intracranial hemorrhage. Report dictated by Lorenzo Horta MD (nursing resident). Lonnie Ornelas MD have personally reviewed and interpreted this examination/study. > Interpreting Provider: Lonnie Rae MD on 10/22/2022 3:[address] HEAD WO CONTRAST Result Date: 10/20/2022 IMPRESSION: Interval postsurgical changes of decompressive right hemicraniectomy with ICP monitor and subdural drain in place. 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 > Dictated by Bassam Jovel M.D. (nursing resident) Gonzalez Ornelas MD have personally reviewed and interpreted this examination/study. > Interpreting Provider: Gonzalez Velasco MD on 10/20/2022 11:[address] HEAD NON CONTRAST Result Date: 10/20/2022 IMPRESSION: Findings consistent with a large acute area of infarction in the right cerebral hemisphere in the distribution of the right middle cerebral artery with mass effect and approximately 4 mm of midline shift right to left. There is no definite hemorrhagic transformation. There is hyperdensity of the right middle cerebral artery likely representing thrombus. Clinical correlation and continued close interval follow-up are recommended. Results discussed with the stroke team physician, Dr. Stephanie Hester, on 20 October 2022 approximately 1225 hours. > Interpreting Provider: Joni Fabian MD on 10/20/2022 12:[address] ANGIO BRAIN NECK STROKE Result Date: 10/19/2022 IMPRESSION: 1. Occlusion of the distal M1 [...] Lonnie Rae MD on 10/19/2022 8:[address] BRAIN - Stroke Result Date: 10/19/2022 IMPRESSION: 1. No acute intracranial hemorrhage. 2. [...] Lonnie Rae MD on 10/19/2022 8:15 AM Hospital Problems on Admission: Right middle cerebral artery stroke (CMS/HCC) (POA: Unknown) Acute cerebrovascular accident (CVA) due to embolism of right middle cerebral artery (CMS/HCC) (POA: Yes) Nihss score 9 (POA: Yes) Received intravenous tissue plasminogen activator (tPA) in emergency department (POA: Yes) GERD (gastroesophageal reflux disease) (POA: Yes) Hemianopsia (POA: Yes) Weakness (POA: Yes) Left-sided sensory deficit present (POA: Yes) Gaze palsy (POA: Yes) Migraine (POA: Unknown) Hypertension (POA: Unknown) Assessment Consuelo Darby is a 41 year old female presenting for R sided gaze preference, L hemianopsia, L arm and L leg hemiparesis, and L extinction. CTA showed RMCA M1 occlusion. S/P TNK and MT with TICI 2B recanalization. S/P right decompressive hemicraniectomy. SARAH showed vegetation on aortic side of Lcoronary cusp. ?? Possible differentials include infective endocarditis, nonbacterial thrombotic endocarditis, and fibroelastoma. ?? To workup IE, blood cultures have been sent and preliminary 24 hour read is no growth. Started vancand ceftriaxone empirically. Nonbacterial thrombotic endocarditis workup has been done. SARAH has been negative, noncontributory protein C and S. Normal lupus anticoag, cardiolipin, beta 2 glucoprotein antibodies. Family history of Sjogren in sister, daughter with celiac, children with immunodeficiency. ?? Another differential is fibroelastoma due to pedunculated structure on aortic valve. Diagnosis would need to be done by microscopy.?? Plan Neurological EVD open at 0: drained ICP: CPP: #??R MCA syndrome S/P TNK, mechanical thrombectomy, decompressive R hemicraniectomy? Plan: - Neurological checks q1 - Pupillometer checks q1, recorded NPI - PTT checks q4 for goal of 60-80 - Lipitor 80 daily - Head of bed > 30?? - Avoid hypoglycemia, hyponatremia, and hyperthermia ?? # Hx of migraines - continue verapamil 120 Cardiovascular Pulse Min: 75 Max: 147, BP Min: 95/52 Max: 174/91 # 6x7 mm independently mobile mass on aortic side of L coronary cusp - Cardio will continue to follow ?? # Hx of HTN - continue metoprolol 25 BID ?? - Blood pressure goal: SBP<180, map>70 Respiratory # weak cough reflex , difficulty bringing up secretions - bronchial hygiene orders for 4 times daily - 2 L NC - continue Robitussin - Aspiration precautions - Elevate head of bed - Maintain oxygen saturation > 92% - Monitor for respiratory distress Renal/Electrolytes Intake/Output Summary (Last 24 hours) at 10/26/2022 0732 Last data filed at 10/26/2022 0600 Gross per 24 hour Intake 1079 ml Output 2460 ml Net -1381 ml # urinary retention ?? - bladder scans, straight cath (threshold of 250 ml) ?? - Monitor intake and output - Replete electrolytes as needed Infectious Disease Temp (24hrs), Av ??F (36.7 ??C), Min:97.1 ??F (36.2 ??C), Max:98.9 ??F (37.2 ??C) - ID is following for possible IE etiology - continue vanc and ceftriaxone ?? - Monitor for fevers - Ramirez culture if febrile Gastrointestinal # Hx of GERD? 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 # Normocytic anemia - 8.2 from 8.0 yesterday - transfuse if Hgb < 7 ?? Workup for hypercoagulabilities: SARAH negative, noncontributory protein C and S, lupus anticoag, cardiolipin, beta 2 glucoprotein antibodies?? Musculoskeletal No active issues Disposition - PT/OT will continue to follow - helmet ordered prior to getting out of bed Feeds/Fluids: NG tube Analgesia: tylenol PRN Sedation: none Thromboprophylaxis: heparin HOB:??>30 degrees Ulcer Ppx:??Prevacid 30?? Glucose:??wnl HOB: >30 SBT: n/a, extubated BR: senna, miralax Indwelling lines: PIV x2 De-escalation: continue ICU Family: updated at bedside Cordero Kyle Johan Medical Student, MS3 [facility]. * Paris Mohr MD - 10/26/2022 6:55 AM CDT Images from the original note were not included. Neurocritical Care Progress Note Consuelo Darby Age: [age] year old Date of : 1980 Date of Admission: 10/19/2022 Hospital Day: 7 Subjective History of Present Illness Consuelo Darby is a 41yo M who developed acute onset L sided weakness, L-sided sensory deficits, and dysarthria. L sided weakness resolved in route and dysarthria improved in route. On arrival patient noted to L gaze plasy, L hemainopsia, mild dysarthria, and extinction. NIHSS: 7. Patient was givenTNK and code IVR was activated. TICI2b revascularization of the R MCA M1 occlusion. 10/19: Cardene drip for maintaining SBP <140 post MT. 10/20: Taken for hemicrani with nsg. Intubated 10/21: Off levo, prop and fent. On Precedex. Tolerating PSV. 10/22: CTH showed increased edema but no MLS. ICPs wnl. Tolerating PSV well. 10/23: aortic valve mobile vegetation identified on SARAH. BCX ordered. Held off on heparin due to bleeding risk and awaiting blood cultures. ICPm removed. On PSV. 10/24: Extubated to 4L NC. ID consulted. Started empiric abx vanc rocephin. MRI with acute subacute small infarcts in L MCA territory 10/25: started heparin drip with aPTT goals of 60-80. CT CAP: no masses or infections.prelim cx- no growth Interval History: No acute events overnight Objective BP 126/69 Pulse 96 Temp 98.5 ??F (36.9 ??C) (Axillary) Resp 20 Ht 1.626 m (5' 4 ) Wt 95.3kg (210 lb) SpO2 99% Temp (30hrs) Max:99.3 ??F (37.4 ??C) Body mass index is 36.05 kg/m??. Exam - Neurologic Intubated Communicates with thumbs up to answer yes and two fingers answer no. Pupils reactive bilaterally Cough and gag present Opens eyes to physical stimuli Moves RUE/RLE spont Follows commands on RUE/RLE LUE/LLE spontaneous foot movement and finger movement noted. Did not follow commands on left side. Con - afebrile Heent - carla on right side of head, soft scalp and MCA IRMA pulse present. S/p DHC Neck - no masses, trachea midline.NGT in place CV - no chest wall tenderness, tachycardia present, no MGR. Regular rhythm. Normal S1 and S2 Pulm - normal respiratory effort Abd - soft, NTND, bowel sounds present Labs: Reviewed. Imaging: reviewed Hospital Problems on Admission: Right middle cerebral artery stroke (CMS/HCC) (POA: Unknown) Acute cerebrovascular accident (CVA) due to embolism of right middle cerebral artery (CMS/HCC) (POA: Yes) Nihss score 9 (POA: Yes) Received intravenous tissue plasminogen activator (tPA) in emergency department (POA: Yes) GERD (gastroesophageal reflux disease) (POA: Yes) Hemianopsia (POA: Yes) Weakness (POA: Yes) Left-sided sensory deficit present (POA: Yes) Gaze palsy (POA: Yes) Migraine (POA: Unknown) Hypertension (POA: Unknown) Assessment Consuelo Darby is a 41 year old female presenting with R gaze preference, L hemianopsia, L arm and leg hemiparesis, and L extinction. CTA with RMCA M1 occlsuion. S/P TNK and MT with TICI 2B recanalization. Admitted to neuroICU for post MT and post TNK monitoring. S/P DHC on 10/20 and remained intubated after procedure. 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 Differentials include infective endocarditis, non-infective endocarditis and fibroelastoma Plan Neurological ICP 12-21 LEONCIO drain 45cc R MCA M1 occlusion s/p MT with TICI 2B recanalization S/P TNK administration. 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 Marquez in 10-14 days for wound check and staple removal. If patient is still inpatientat that time, please call NSGY for staple removal. - Neurological checks q1hr - Pupillometer checks q1hr with recorded NPIs q1hr - ASA 81 held while on heparin gtt - Lipitor 80g daily - Head of bed > 30?? Hx Migraines - On Amitriptyline 50 mg BID and verapamil 120 mg daily at home. Hold amitriptyline. Cardiovascular HR 75-133, BP Min: 95/52 Max: 174/91 Hx Hypertension - On Metoprolol 25 mg BID at home, resumed. 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 Preliminary bcx negative x3 - Continue empiric abx until final cultures result - Rheumatology consulted to evaluate for non-infective endocarditis - Sister with sjogrens and children with immunodeficiencies - SARAH and RF negative - ordered the following: - Anti Beta-2 glycoprotein Antibody IgA, IgG, IgM - Anti Cardiolipin Antibody IgA, IgG, IgM - Anti Phosphatidylserine Ab - CTS consulted for possible removal of vegetation. However, not a candidate at this time. - 10/25 started heparin drip. aptt goal 60-80, no boluses - Daily CTH while on heparin drip. - SBP goal < 160 No PRNs ordered at this time. Nursing staff told to call MD if consistently elevated blood pressures. Respiratory AHRF - Intubated after hemicrani on 10/20. Extubated 10/24, to ME - Bronchial hygiene q4h, vest and if able to cough will switch to aerobika - Aspiration precautions - Elevate head of bed 30-45 degrees - Frequent suctioning, NT suctioning as needed - Maintain oxygen saturation > 92% Renal/Electrolytes Intake/Output Summary (Last 24 hours) at 10/26/2022 0655 Last data filed at 10/26/2022 0600 Gross per 24 hour Intake 1079 ml Output 2460 ml Net -1381 ml Urinary retention - continue tamsulosin - straight cath with bladder US for retention of 300cc or more Electrolyte derangements - Replete electrolytes as needed Infectious Disease Temp (24hrs), Av.1 ??F (36.7 ??C), Min:97.6 ??F (36.4 ??C), Max:98.9 ??F (37.2 ??C) Leukocytosis, downtrending - f/u blood cultures - on empiric abx vanc and rocephin SOT 10/25 - Monitor for fevers - Ramirez culture if febrile Gastrointestinal Hx GERD - Lansoprozole 30 mg ordered. - Diet: Goal TF Vital 55cc/hr, FWF [id number] - GI ppx: Lansoprozole - Last BM: 10/22 - BM regimen: senna and miralax Endocrine Patient was taking oral contraceptive home medication. - A1c 6.0 - Accuchecks Hematology Recent Labs Component Name 10/26/22 0002 WBC 16.1* HGB 8.1* HCT 25.1* PLTCOUNT 446* No active issues DVT ppx: SCDs Hypercoaguable workup per stroke team. Musculoskeletal No active issues Disposition - PT/OT pending Feeds/Fluids: Tube Feeds Analgesia: fentanyl push Sedation: none Thromboprophylaxis: scd, heparin gtt HOB: HOB >30 degrees Ulcer Ppx: Lansozprozole 30 Glucose: wnl BR: senna and miralax Indwelling lines: 2 PIVs, NGT De-escalation: pending final bcx results Family: updated at bedside Paris Mohr MD Neurology Resident. PGY-3 [facility]. Associated attestation - Shahbaz Bowen MD - 10/27/2022 3:13 PM CDT NEURO R MCA infarct s/p TNK and thrombectomy 10/23: ASA per stroke team. keep SBP <180, Cerebral edema on CT this AM stable, Vegetation on aortic side of aortic valve found on SARAH with workup and management below. No needs for osmolar therapyto control ICPs, but use hypertonic saline bolus for ICP > 22 for > 5mins. MRI brain to f/u on aneurysm on prior CTA. 10/24: No acute changes in neuro-exam, LEONCIO and drain removed by NSGY 10/23 in preparation for startingheparin. We will f/u NSGY regarding flap fullness. MRI today showing petechial hemorrhages in the Rinfarct distribution, Small areas of sub-acute infarct on the L side consistent with showering likely with initial event. 10/25: no changes in neuro-exam. CT head today with stable findings. Starting heparin today as belowwill watch closely for signs of intracranial bleeding 10/26: Heparin initiated, no changes on neuroexam, but not therapeutic yet this AM RESP Acute resp failure, intubated due to changes in mental status prior to hemicraniectomy 10/23: reports of thick secretions, no infiltrate on CXR no fever. Will monitor if not worsening will proceed to extubation if continuing to meet criteria tomorrow. 10/24: RSBI 70s today, following commands, takes deep breath when asked. Extubated to NC 10/25: Doing well extubated, minimal O2 requirement. Trial of vest therapy today along with NT suctioning, out of bed to neurochair. 10/26: Hold NT suctioning while on heparin, awaiting to get into neurochair until she has a helmet which is ordered, fio2 decreased CVS Aortic vegetation 10/23: Vegetation discovered differential includes bacterial vegetation, auto- immunue thrombus, or fibroelastoma, no signs of valve dysfunction, will send blood cultures. Cardiac CT to see if further information can be elucidated. f/u with rheum re further workup. 10/24: awaiting read on cardiac CT, holding on starting heparin per stroke team 10/25: Incidentally clot found in the R EXTRUDING PRESS ADJUSTER, non-occulsive, with good pulses peripherally. 10/26: no acute changes, stroke team may get vascular surgery involved due to clot found yesterday RENAL/ Urinary Retention 10/23: c/w bladder scan and straight cath 10/24: some spontaneous urination overnight (incontinence) but having to be straight cath'd this AM 10/25: Switch to straight cathing for 250ml as opposed to 500mls today 10/26: continued requirement for straight cathing. ENDO -monitor for stress Hyperglycemia GI Nutrition at risk 10/23: TF paused for SARAH procedure briefly. No reports of intolerance. Last BM on 10/22 on a bowel regimen. Will pause for a couple hrs prior to extubation. Had a brief discussion with mother and on high likelihood of needing a PEG for nutritional support 10/24: c/w TF will pause temporarily if extubating today 10/25: Doing well from an airway perspective, will begin titration back to goal 10/26:TF and flushes at goal, had a bowel movment today, will continue with current regimen HEME Anemia 10/23: Will monitor for signs/sites of bleeding (craniectomy site/groin access site), non so far. 10/24: Hgb stable from yesterday, no external signs of bleeding 10/25: Hgb stable today. No bleeding 10/26 No signs of bleeding on heparin initiation Anticoagulation for possible non bacterial endocarditis 10/23: starting heparin has risk of hemorrhagic conversion after her large CVA. After discussion stroke service will hold on starting AC until BCX return. 10/24: After multi-disciplinary discussion holding on starting heparin at this time to give cx more time. 10/25: starting heparin today for goal ptt of 60-80, will have gentle titration 10/26: Ptt slowly creeping towards range as we desire due to high risk for having a hemorrhagic conversion ID WBC 10 on admission, then with what was likely Post procedure leukocytosis, now stable but elevatedwithout intervention. no fevers. 10/23: Send Blood cultures x2 10/24: Send Blood cultures x2 again. Stroke team consulting with ID to assist in decision to start abx 10/25: Started on abx (vanc/ceftriaxone) overnight as per ID recs. May be able to stop if all cx finalize to negative' 10/26: Bcx continue to be negative, additional serologies sent as per ID recs The present set of clinical problems have a high likelihood of sudden deterioration associated withsignificant morbidity and involve high complexity decision making to frequently assess, manipulate,and support vital systems function. Discontinuation of therapies, or advanced physiological and clinical monitoring, poses a significant threat of prolonged morbidity or mortality. Critical Care 30-74 minutes: 40 mins (Time involved in the performance of separately billable procedures, teaching, or reviewing educational material was not counted towards critical care time.) * Deyanira Richard RN - 10/26/2022 5:14 AM CDT Problem: ELOPEMENT/ABDUCTION Goal: Risk for elopement &/or abduction during hospitalization is minimized Outcome: Progressing Problem: Safety related to restraint use Goal: Absence of injury while restrained Outcome: Progressing Problem: Fall Risk Goal: Fall risk and fall related injury risk are minimized (interventions related to the fall risk can be found in the flowsheet documentation) Outcome: Progressing Problem: Skin Integrity Goal: Skin integrity is maintained or improved Outcome: Progressing Problem: Pain/Discomfort Goal: Patient exhibits reduced pain/discomfort as evidenced by pain scores Outcome: Progressing Goal: Patient uses pharmacological and non-pharmacological pain management strategies. Outcome: Progressing Goal: Patient verbalizes acceptable level of pain relief and ability to engage in desired activity. Outcome: Progressing Problem: Neurological Deficit Goal: Neurological status is stable or improving Outcome: Progressing Problem: Hemodynamic Status/Cardiac Output Goal: Patient has stable vital signs and fluid balance Outcome: Progressing Problem: Oxygenation/Respiratory Function Goal: Respiratory rate/effort will be within specified limits Outcome: Progressing Problem: Mobility Goal: Patient's mobility/activity will be maintained as optimum level for age, diagnosis and physical limitations Outcome: Progressing Goal: Continuum of care needs are further met through referral to outpatient services when appropriate. Outcome: Progressing Goal: Patient reports the ability to perform Activities of Daily Living. Outcome: Progressing Problem: Communication Impairment/Dysarthria Goal: Ability to express needs and understand communication Outcome: Progressing Problem: Nutrition Goal: Nutritional status is improving Outcome: Progressing Problem: Aspiration Precautions Goal: Patient's risk of aspiration is minimized Outcome: Progressing Problem: Glycemic Control Goal: Clinical indication of glycemia balance is achieved Outcome: Progressing Problem: Knowledge Deficit,Education,Discharge Plan Goal: The patient/family will understand cerebrovascular disease and its symptoms, treatment and management Outcome: Progressing Problem: Oral Intake: Inadequate oral intake Goal: Total intake will meet estimated nutrient needs Outcome: Progressing Problem: Swallowing Goal: LTG - Patient will tolerate the least restrictive diet consistency to allow for safe consumption of daily meals Outcome: Progressing Problem: Transfers Goal: STG - Transfer from bed to chair Outcome: Progressing Problem: Risk for Violence: Self-Directed or Other Directed Description: Diagnosis: Risk for self-directed Violence or Risk for Directed Violence Risk Factors: Biochemical/neurologic imbalances, impulsivity, manic excitement, psychotic symptomatology, rage reaction, restlessness Possibly Evidenced By: agitated behaviors, delusional thinking, hallucinations, loud/threatening/profane speech, poor impulse control, provocative behaviors, verbal threats against others, verbal threats against self Goal: Patient will verbalize control of feelings. Outcome: Progressing Goal: Patient will respond to interventions when potential or actual loss of control occurs. Outcome: Progressing Goal: Patient will refrain from provoking others to physical harm. Outcome: Progressing Goal: Patient will display nonviolent behaviors toward others in the hospital, with the aid of medications and nursing interventions. Outcome: Progressing Goal: Patient will seek help when experiencing aggressive impulses. Outcome: Progressing Goal: Patient will refrain from verbal threats and loud, profrane language toward others. Outcome: Progressing Goal: Patient will be safe and free from injury. Outcome: Progressing * Bulmaro Ochoa RN - 10/25/2022 6:02 PM CDT Care Coordination Progress Note Anticipated level of care at discharge: Home, Acute Rehab Facility: Anticipated level of care provider: None: Anticipated Discharge Date: 10/27/22: Discharge Plan: Pending patient's progress with medical treatment and care team recommendations. Pending updated PT, OT evaluation when appropriate. Per neurology notes 10/25/22:- 10/25: Doing well extubated, minimal O2 requirement. Trial of vest therapy today along with NT suctioning, out of bed to neurochair. 10/25: Started on abx overnight as per ID recs. May be able to stop if all cx finalize to negative ?? Orientation Level: Unable to Obtain: Family Support (Name and Phone): Extended Emergency Contact Information Primary Emergency Contact: MehnazHi [address]: [address] [place] [id number] [facility] Relation: Spouse Secondary Emergency Contact: Sandra Disla [facility] Mobile Relation: Mother Transportation at Discharge: Ambulance: READMISSION RISK SCORE is 15 at 6:02 PM 10/25/2022.: Name: Bulmaro Ochoa RN BSN manager in home [phone] * Barbara Arteaga - 10/25/2022 12:38 PM CDT Civil Technician offered support to Salo at bedside and asked him and Consuelo, who was awake, aboutreceiving the sacrament of the sick from a stitch bonding machine operator. Salo said yes and Consuelo seemed to give assent as well. Civil Technician asked if she would like prayer and Consuelo gave a thumbs up; signing teacher provided prayer in thanksgiving that she's extubated and giving thumbs up. Consuelo put her arm around Salo who w as leaning over her; signing teacher affirmed the couple's obvious love for each other. Civil Technician requestedSOS from our stitch bonding machine operator. chaplain Cici Ascom [phone] outbound call center representative [phone] * Paris Mohr MD - 10/25/2022 12:22 PM CDT Images from the original note were not included. Neurocritical Care Progress Note Consuelo Darby Age: [age] year old Date of : 1980 Date of Admission: 10/19/2022 Hospital Day: 6 Subjective History of Present Illness Consuelo Darby is a 41yo M who developed acute onset L sided weakness, L-sided sensory deficits, and dysarthria. L sided weakness resolved in route and dysarthria improved in route. On arrival patient noted to L gaze plasy, L hemainopsia, mild dysarthria, and extinction. NIHSS: 7. Patient was givenTNK and code IVR was activated. TICI2b revascularization of the R MCA M1 occlusion. 10/19: Cardene drip for maintaining SBP <140 post MT. 10/20: Taken for hemicrani with nsg. Intubated 10/21: Off levo, prop and fent. On Precedex. Tolerating PSV. 10/22: CTH showed increased edema but no MLS. ICPs wnl. Tolerating PSV well. 10/23: aortic valve mobile vegetation identified on SARAH. BCX ordered. Held off on heparin due to bleeding risk and awaiting blood cultures. ICPm removed. On PSV. 10/24: Extubated to 4L NC. ID consulted. Started empiric abx vanc rocephin. MRI with acute subacute small infarcts in L MCA territory Interval History: Afebrile overnight No worsening neuro exam. Has remained off of precedex. Required frequent suctioning overnight. O2 weaned to 2L Objective BP 126/83 Pulse 102 Temp 97.6 ??F (36.4 ??C) (Axillary) Resp 19 Ht 1.626 m (5' 4 ) Wt 95.3 kg (210 lb) SpO2 99% Temp (30hrs) Max:99.3 ??F (37.4 ??C) Body mass index is 36.05 kg/m??. Exam - Neurologic Intubated Comprehension intact, communicates with thumbs up to answer yes and two fingers answer no. Pupils reactive bilaterally Cough and gag present Opens eyes to physical stimuli Moves RUE/RLE spont Follows commands on RUE/RLE LUE/LLE spontaneous foot movement and finger movement noted. Did not follow commands on left side. Con - afebrile Heent - carla on right side of head, soft scalp and MCA IRMA pulse present. S/p [facility] Neck - no masses, trachea midline.NGT in place CV - no chest wall tenderness, tachycardia present, no MGR. Regular rhythm. Normal S1 and S2 Pulm - normal respiratory effort Abd - soft, NTND, bowel sounds present Labs: Reviewed. Imaging: reviewed Hospital Problems on Admission: Right middle cerebral artery stroke (CMS/HCC) (POA: Unknown) Acute cerebrovascular accident (CVA) due to embolism of right middle cerebral artery (CMS/HCC) (POA: Yes) Nihss score 9 (POA: Yes) Received intravenous tissue plasminogen activator (tPA) in emergency department (POA: Yes) GERD (gastroesophageal reflux disease) (POA: Yes) Hemianopsia (POA: Yes) Weakness (POA: Yes) Left-sided sensory deficit present (POA: Yes) Gaze palsy (POA: Yes) Migraine (POA: Unknown) Hypertension (POA: Unknown) Assessment Consuelo Darby is a 41 year old female presenting with R gaze preference, L hemianopsia, L arm and leg hemiparesis, and L extinction. CTA with RMCA M1 occlsuion. S/P TNK and MT with TICI 2B recanalization. Admitted to neuroICU for post MT and post TNK monitoring. S/P [facility] on 10/20 and remained intubated after procedure. 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 Differentials include infective endocarditis, non-infective endocarditis and fibroelastoma Plan Neurological ICP 12-21 LEONCIO drain 45cc R MCA M1 occlusion s/p MT with TICI 2B recanalization S/P TNK administration. 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 Hx Migraines - On Amitriptyline 50 mg BID and verapamil 120 mg daily at home. Hold amitriptyline. Cardiovascular HR 75-133, BP Min: 95/52 Max: 174/91 Hx Hypertension - On Metoprolol 25 mg BID at home, resumed. 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 Preliminary bcx negative - Continue empiric abx until final cultures result - Obtain mycoplasma PCR serum - Rheumatology consulted to evaluate for non-infective endocarditis - Sister with sjogrens and children with immunodeficiencies - SARAH and RF negative - ordered the following: - Anti Beta-2 glycoprotein Antibody IgA, IgG, IgM - Anti Cardiolipin Antibody IgA, IgG, IgM - Anti Phosphatidylserine Ab - CTS consulted for possible removal of vegetation. However, not a candidate at this time. - Order CTH, if no bleed then will start heparin drip with aPTT goals of 60-80, and no boluses - Will get daily CTH while on heparin drip - CT CAP, to evaluate for any possible infections or malignancy that may be the cause of aortic vegetation - SBP goal < 160 No PRNs ordered at this time. Nursing staff told to call MD if consistently elevated blood pressures. Respiratory AHRF - Intubated after hemicrani on 10/20. Extubated 10/24, to NC - Bronchial hygiene q4h, vest and if able to cough will switch to aerobika - Aspiration precautions - Elevate head of bed 30-45 degrees - Frequent suctioning, NT suctioning as needed - Maintain oxygen saturation > 92% Renal/Electrolytes Intake/Output Summary (Last 24 hours) at 10/25/2022 1413 Last data filed at 10/25/2022 1000 Gross per 24 hour Intake 764 ml Output 1500 ml Net -736 ml Urinary retention - continue tamsulosin - straight cath with bladder US for retention of 300cc or more Electrolyte derangements - Replete electrolytes as needed Infectious Disease Temp (24hrs), Av.5 ??F (36.9 ??C), Min:97.6 ??F (36.4 ??C), Max:99.3 ??F (37.4 ??C) Leukocytosis, downtrending - f/u blood cultures - on empiric abx vanc and rocephin SOT 10/25 - Monitor for fevers - Ramirez culture if febrile Gastrointestinal Hx GERD - Lansoprozole 30 mg ordered. - Diet: Goal TF Vital 55cc/hr, FWF [id number] - GI ppx: Lansoprozole - Last BM: 10/22 - BM regimen: senna and miralax Endocrine Patient was taking oral contraceptive home medication. - A1c 6.0 - Accuchecks Hematology Recent Labs Component Name 10/25/22 0007 WBC 16.6* HGB 8.2* HCT 25.1* PLTCOUNT 402* No active issues DVT ppx: SCDs, Lovenox Hypercoaguable workup per stroke team. Musculoskeletal No active issues Disposition - PT/OT pending Feeds/Fluids: Tube Feeds Analgesia: fentanyl push Sedation: none Thromboprophylaxis: scd, lovenox HOB: HOB 45 degrees Ulcer Ppx: Lansozprozole 30 Glucose: wnl BR: senna and miralax Indwelling lines: 2 PIVs, NGT De-escalation: ICU for at least 48 hours Family: updated at bedside Paris Mohr MD Neurology Resident. PGY-3 [facility]. Associated attestation - Shahbaz Bowen MD - 10/25/2022 3:50 PM CDT Examiner Attestation: Patient seen and examined. Resident note reviewed and discussed. I confirm the resident's documentation and findings except where revised on this note. Labs reviewed with team on rounds, see resident note for details Assessment and Plan: NEURO R MCA infarct s/p TNK and thrombectomy 10/23: ASA per stroke team. keep SBP <180, Cerebral edema on CT this AM stable, Vegetation on aortic side of aortic valve found on SARAH with workup and management below. No needs for osmolar therapyto control ICPs, but use hypertonic saline bolus for ICP > 22 for > 5mins. MRI brain to f/u on aneurysm on prior CTA. 10/24: No acute changes in neuro-exam, LEONCIO and drain removed by NSGY 10/23 in preparation for startingheparin. We will f/u NSGY regarding flap fullness. MRI today showing petechial hemorrhages in the Rinfarct distribution, Small areas of sub-acute infarct on the L side consistent with showering likely with initial event. 10/25: no changes in neuro-exam. CT head today with stable findings. Starting heparin today as belowwill watch closely for signs of intracranial bleeding RESP Acute resp failure, intubated due to changes in mental status prior to hemicraniectomy 10/23: reports of thick secretions, no infiltrate on CXR no fever. Will monitor if not worsening will proceed to extubation if continuing to meet criteria tomorrow. 10/24: RSBI 70s today, following commands, takes deep breath when asked. Extubated to NC 10/25: Doing well extubated, minimal O2 requirement. Trial of vest therapy today along with NT suctioning, out of bed to neurochair. CVS Aortic vegetation 10/23: Vegetation discovered differential includes bacterial vegetation, auto- immunue thrombus, or fibroelastoma, no signs of valve dysfunction, will send blood cultures. Cardiac CT to see if further information can be elucidated. f/u with rheum re further workup. 10/24: awaiting read on cardiac CT, holding on starting heparin per stroke team 10/25: Incidentally clot found in the R [employer]ING [employer], non-occulsive, with good pulses peripherally. RENAL/ Urinary Retention 10/23: c/w bladder scan and straight cath 10/24: some spontaneous urination overnight (incontinence) but having to be straight cath'd this AM 10/25: Switch to straight cathing for 250ml as opposed to 500mls today ENDO -monitor for stress Hyperglycemia GI Nutrition at risk 10/23: TF paused for SARAH procedure briefly. No reports of intolerance. Last BM on 10/22 on a bowel regimen. Will pause for a couple hrs prior to extubation. Had a brief discussion with mother and on high likelihood of needing a PEG for nutritional support 10/24: c/w TF will pause temporarily if extubating today 10/25: Doing well from an airway perspective, will begin titration back to goal HEME Anemia 10/23: Will monitor for signs/sites of bleeding (craniectomy site/groin access site), non so far. 10/24: Hgb stable from yesterday, no external signs of bleeding 10/25: Hgb stable today. No bleeding Anticoagulation for possible non bacterial endocarditis 10/23: starting heparin has risk of hemorrhagic conversion after her large CVA. After discussion stroke service will hold on starting AC until BCX return. 10/24: After multi-disciplinary discussion holding on starting heparin at this time to give cx more time. 10/25: starting heparin today for goal ptt of 60-80, will have gentle titration ID WBC 10 on admission, then with what was likely Post procedure leukocytosis, now stable but elevatedwithout intervention. no fevers. 10/23: Send Blood cultures x2 10/24: Send Blood cultures x2 again. Stroke team consulting with ID to assist in decision to start abx 10/25: Started on abx overnight as per ID recs. May be able to stop if all cx finalize to negative The present set of clinical problems have a high likelihood of sudden deterioration associated withsignificant morbidity and involve high complexity decision making to frequently assess, manipulate,and support vital systems function. Discontinuation of therapies, or advanced physiological and clinical monitoring, poses a significant threat of prolonged morbidity or mortality. Critical Care 30-74 minutes: 40 mins (Time involved in the performance of separately billable procedures, teaching, or reviewing educational material was not counted towards critical care time.) Shahbaz Bowen MD 10/25/2022 3:42 PM * Pardeep Parks RN - 10/25/2022 11:56 AM CDT Problem: Fall Risk Goal: Fall risk and fall related injury risk are minimized (interventions related to the fall risk can be found in the flowsheet documentation) Outcome: Progressing Problem: Skin Integrity Goal: Skin integrity is maintained or improved Outcome: Progressing Problem: Pain/Discomfort Goal: Patient exhibits reduced pain/discomfort as evidenced by pain scores Outcome: Progressing Problem: Neurological Deficit Goal: Neurological status is stable or improving Outcome: Progressing Problem: Hemodynamic Status/Cardiac Output Goal: Patient has stable vital signs and fluid balance Outcome: Progressing Problem: Oxygenation/Respiratory Function Goal: Respiratory rate/effort will be within specified limits Outcome: Progressing Problem: Aspiration Precautions Goal: Patient's risk of aspiration is minimized Outcome: Progressing * Valdez Rodriguez MD - 10/25/2022 9:56 AM CDT Neurosurgery Plan of Care Patient is OK for anticoagulation as needed for treatment of aortic valve pathology. If anticoagulation is initiated, please obtain CT head when patient reaches therapeutic PTT and call NSGY back forour evaluation. Additionally, patient is to return to Neurosurgery clinic to see Dr. Marquez in 10- 14 days for wound check and staple removal. If patient is still inpatient at that time, please call NSGY for staple removal. Valdez Rodriguez MD Neurosurgery Resident * Gianna Rose OT - 10/25/2022 9:50 AM CDT [facility] Department of Physical Medicine & Rehabilitation Progress Note Patient: Consuelo Darby [facility] Record Number: [id number] Date of : 1980 Age: [age] year old 10/25/22 0949 Missed Visit Missed Visit MD Cancel Per multidisciplinary rounds with primary team, cx therapy this date. Team also notified on rounds of need for helmet prior to initiating out of bed mobility. OT will continue to follow. * Iva Wilde PT - 10/25/2022 9:30 AM CDT [facility] Department of Physical Medicine & Rehabilitation Patient: Consuelo Darby [facility] Record Number: [id number] Date of : 1980 Age: [age] year old 10/25/22 0930 Missed Visit Missed Visit Cancel- Cancel for the day per stroke rounds * Liam Parks MD - 10/25/2022 8:00 AM CDT [facility] Infectious Diseases Progress Note Date of Admission: 10/19/2022 7:53 AM Length of Stay: Day 6 Room: 309/01 Attending: Emir Vail MD Subjective Since last seen by us, she has remained afebrile, hemodynamically stable, on oxygen at 2 L via nasal canula. WBC count slowly trending down. As per , no change in mental status, states that she is tired. Review of Systems Unable to perform ROS: Mental status change Antimicrobial History Current Antibiotics Vancomycin 10/25 - present Ceftriaxone 10/25 - present ?? [facility] Cefazolin 10/20 Vancomycin 10/20 Inpatient Medications ??? *Hold/Avoid Medication Other DIRECTED ??? *Hold/Avoid Medication Other 799 and 1999 ??? 0.9% NaCl 3 mL Intracatheter q8h ??? 0.9% NaCl 3 mL Intracatheter q8h ??? artificial tears Each Eye q8h ??? aspirin 81 mg Enteral Tube QDAY ??? atorvastatin 80 mg Enteral Tube AT BEDTIME ??? cefTRIAXone 2 g Intravenous q24h ??? chlorhexidine 15 mL Mouth/Throat BID ??? enoxaparin 40 mg Subcutaneous QDAY ??? gadobutrol Intravenous Contrast - Once ??? guaiFENesin 10 mL Enteral Tube q12h ??? iopamidol Intravenous Contrast - Once ??? lansoprazole 30 mg Enteral Tube QDAY BEFORE BREAKFAST ??? loratadine 10 mg Enteral Tube QDAY ??? metoprolol tartrate IR 25 mg Enteral Tube q12h ??? polyethylene glycol 3350 17 g Enteral Tube QDAY ??? senna-docusate 1 tablet Enteral Tube QDAY ??? tamsulosin 0.4 mg Enteral Tube QDAY ??? vancomycin 1,250 mg Intravenous q8h ??? vancomycin (VANCOCIN) IV dose per pharmacy Does not apply DIRECTED ??? verapamil 40 mg Enteral Tube q8h ??? Vitamin D3 (cholecalciferol) 2,000 Units Enteral Tube QDAY Objective Vitals BP 129/74 Pulse 90 Temp 97.8 ??F (36.6 ??C) (Axillary) Resp 21 Ht 1.626 m (5' 4 ) Wt 95.3kg (210 lb) SpO2 99% Temp (24hrs), Av.7 ??F (37.1 ??C), Min:97.7 ??F (36.5 ??C), Max:99.3 ??F (37.4 ??C) Physical Exam Physical Exam Vitals and nursing note reviewed. Constitutional: General: She is awake. She is not in acute distress. Appearance: She is ill-appearing. She is not toxic-appearing or diaphoretic. HENT: Head: Comments: Right hemicraniectomy surgical wound clean, no discharge or erythema Cardiovascular: Rate and Rhythm: Normal rate and regular rhythm. Pulses: Normal pulses. Heart sounds: Normal heart sounds. No murmur heard. No friction rub. No gallop. Pulmonary: Effort: Pulmonary effort is normal. No respiratory distress. Breath sounds: Normal breath sounds. No wheezing, rhonchi or rales. Chest: Breasts: Right: Normal. No mass. Left: Normal. No mass. Abdominal: General: Abdomen is flat. Bowel sounds are normal. There is no distension. Palpations: Abdomen is soft. Tenderness: There is no abdominal tenderness. Musculoskeletal: Right lower leg: No edema. Left lower leg: No edema. Neurological: Mental Status: She is disoriented and confused. Lines: left forearm PIV, left hand PIV Lab Review CBC: Recent Labs Component Name 10/25/22 00010/23/22202810/23/2212810/22/22 0153 WBC 16.6* 17.4* 16.7* - RBC 2.65* 2.58* 2.52* - HGB 8.2* 8.0* 7.8* - HCT 25.1* 24.4* 23.8* - MCV 94.7 94.6 94.4 - PLT - - - 199 BMP: Recent Labs Component Name 10/25/22 00010/23/22202810/23/2212810/20/22 0302 10/19/22 0824 06/15/22 0757 NA 140 140 140 - 139 138 CL 106 110* 108* - 108* 107 CO2 25 - 21* 23 BUN 16 14 13 - 13 12 CREATININE 0.48* 0.56 0.51* - 0.84 0.74 ALB - - - - 3.5 3.6 PROT - - - - 7.7 7.5 - = values in this interval not displayed. estimated creatinine clearance is 176.1 mL/min (A) (by C-G formula based on SCr of 0.48 mg/dL (L)). LFTs: Recent Labs Component Name 10/19/22 0824 06/15/22 0757 12/09/18 0812 07/25/18 2056 03/01/16 0817 02/18/16 1209 07/07/13 2319 ALKPHOS 52 44 56 52 111 - 55 ALT 16 9 17 12* 21 - 15 AST 19 17 18 20 25 - 10 ALBUMIN - - 4.5 4.3 2.5* - 3.8 LIPASE - - - - - - 157 - = values in this interval not displayed. Coagulation: Recent Labs Component Name 10/23/22202810/20/22 0302 10/19/22 08 PT 13.4 13.6 12.3 INR 1.0 1.1 0.9 PTT 21.4* 24.4 - Microbiology, Imaging and other diagnostic tests MICROBIOLOGY: Blood culture: 10/23 No growth 10/24 in process ?? Other serologies: 10/23 MRSA DNA by PCR not detected 10/25 HIV Antigen/Antibody 1 & 2 non-reactive 10/25 Hepatitis C Antibody non-reactive HISTOPATHOLOGY: None at this admission IMAGING & PROCEDURES: I have independently reviewed all pertinent imaging data. Reports available in EMR. Assessment and Recommendations Aortic valve vegetation Rule out infective endocarditis SARAH done as part of ischemic stroke work up Patient was admitted as a code stroke, noted to have right MCA stroke, s/p TNK and revascularization by interventional neurology; course complicated by cerebral edema s/p right hemicraniectomy by neurosurgery ID consulted for IE rule out in the setting of vegetation Blood cultures in process Rheumatologic and hypercoagulable work up in process Etiologies at this time include NBTE versus IE At this time, epidemiologically and assessing risk factors, this likely represent non-infectious process although will need further work up Blood cultures in process Can obtain imaging with CT chest, abdomen, pelvis w contrast to assess other occult infectious process or septic phenomena or other etiologies such as underlying malignancy Given inability to entirely rule out infection at this time, we consider reasonable to start empiric antibiotics to cover at least Staphylococcus and Streptococcus Further work up pending this results ?? Cardio-embolic/ischemic stroke Unusual for a 41-year-old patient with no significant risk factors for CVA ?Underlying process Considering hypercoagulable state, either hereditary or in the setting of OCPs and migraine Neurology, cardiology, and rheumatology following ?? Renal Function Renal Function estimated creatinine clearance is 176.1 mL/min (A) (by C-G formula based on SCr of 0.48 mg/dL (L)). Plan/Recommendations Continue vancomycin IV as per pharmacy protocol Continue ceftriaxone 2 g IV every 24 hours Please obtain Mycoplasma PCR in blood as part of culture negative endocarditis Follow blood cultures Follow rheumatologic and hypercoagulable work up Please obtain CT chest, abdomen, pelvis ideally with contrast if no contraindication Check CBC with auto diff and CMP weekly while on IV antibiotics Thank you for allowing us to participate in the care of this patient. We will continue to follow and monitor with you closely. Patient seen, examined, and case/plan were discussed with my attending physician, Dr. Delacruz. Case discussed with primary team. Liam Parks MD (PGY-5) Infectious Diseases Fellow [facility] Pager: [phone] ID Clinic Associated attestation - Arturo Delacruz MD - 10/25/2022 9:01 PM CDT ID ATTENDING ATTESTATION I discussed this patient with the fellow and I agree with the findings and plan of care as documented by the fellow. Additionally, I interviewed and examined the patient myself and reviewed labwork, relevant imaging, and relevant history. I agree with the assessment and plan as detailed in the fellow note with the following modifications/additional thoughts. Please see fellow note for full details. I spent 35 minutes in the care of this patient today, including chart review, history gathering, interview & exam of the patient, medical decision making, and coordination of care. . Arturo Delacruz MD PhD Home Care Nurse [facility] Infectious Disease * Consuelo Prado - 10/25/2022 7:51 AM CDT Images from the original note were not included. Neurocritical Care Progress Note Consuelo Darby Age: [age] year old Date of : 1980 Date of Admission: 10/19/2022 Hospital Day: 6 Subjective History of Present Illness Consuelo Darby is a 41 year old female who developed acute L sided weakness, L sided sensory deficits, and dysarthria. L sided weakness resolved in route and dysarthria improved in route. On arrival,R gaze palsy and L hemianopsia. NIHSS:7. Pt was given TNK. TICI2b revascularization of R MCA M1 occlusion.?? ICU Timeline: Consuelo Darby is a 41 year old female who developed acute L sided weakness, L sided sensory deficits, and dysarthria. L sided weakness resolved in route and dysarthria improved in route. On arrival,R gaze palsy and L hemianopsia. NIHSS:7. Pt was given TNK. TICI2b revascularization of R MCA M1 occlusion.?? Interval History: LEONCIO and ICP monitor removed 10/23. Extubated on 10/24. SARAH on 10/23 showed 6x7 independently mobile mass on left coronary cusp. CT cardio angio on 10/24 favored vegetation, rather than fibrosed hemangioma. Started on vanc and ceftriaxone 10/24. Objective BP 129/74 Pulse 90 Temp 97.8 ??F (36.6 ??C) (Axillary) Resp 21 Ht 1.626 m (5' 4 ) Wt 95.3kg (210 lb) SpO2 99% Temp (30hrs) Max:99.3 ??F (37.4 ??C) Body mass index is 36.05 kg/m??. Exam - General Con - NAD, afebrile Heent - L scalp surgical site w/ carla, soft, pupils 3 mm bilaterally Neck - no masses, trachea midline CV - RRR, no chest wall tenderness Pulm - 2L NC Abd - soft, lower abdomen hematoma from femoral site is improving Exam - Neurologic Surgical site of hemicraniectomy is clean, dry, intact, soft to palpation Pupils 3 mm and reactive bilaterally Cough reflex weak Able to open eyes, follows commands intermittently Able to move RUE and RLE spontaneously Slight movement of digits of LLE Gait Deferred Labs: Lab Results-Last 24 Hours Procedure Component Value Units Date/Time GLUCOSE - POINT OF CARE [[id number]] (Abnormal) Collected: 10/25/22 0756 Order Status: Completed Specimen: Blood Updated: 10/25/22746 Glucose WB/POC 123 mg/dL Specimen Type Cap Fingerstick HEPATITIS C AB SCREEN RFLX NAAT QUANT [[id number]] (Normal) Collected: 10/25/22138 Order Status: Completed Specimen: Blood Updated: 10/25/22255 Hepatitis C Antibody Non-reactive Comment: Hepatitis C Antibody screen indicates no serologic evidence of past or current infection with Hepatitis C Virus. Patients with unexplained liver disease who are immunocompromised or suspected of having acute Hepatitis C infection may benefit from Nucleic Acid Test (GAYLA) for Hepatitis C Viral RNA to confirm Hepatitis C status. HIV-1 HIV-2 ANTIBODY + HIV P24 AG PANEL [[id number]] (Normal) Collected: 10/25/22138 Order Status: Completed Specimen: Blood Updated: 10/25/22255 HIV Antigen/Antibody 1 & 2 Non-reactive Comment: No Laboratory evidence of HIV infection. MAGNESIUM BLOOD [[id number]] (Normal) Collected: 10/25/226 Order Status: Completed Specimen: Blood Updated: 10/25/2247 Magnesium 2.1 mg/dL PHOSPHORUS BLOOD [[id number]] (Normal) Collected: 10/25/226 Order Status: Completed Specimen: Blood Updated: 10/25/2247 Phosphorus 3.7 mg/dL BASIC METABOLIC PANEL (CALCIUM TOTAL) [[id number]] (Abnormal) Collected: 10/25/226 Order Status: Completed Specimen: Blood Updated: 10/25/2247 BUN 16 mg/dL Creatinine 0.48 mg/dL Sodium 140 mmol/L Potassium 4.0 mmol/L Chloride 106 mmol/L CO2 25 mmol/L Glucose 116 mg/dL Calcium 9.0 mg/dL Anion Gap 13 BUN/Creatinine Ratio 33 Osmolality Calculated 292 mOsm/kg eGFR by CKD-EPI >90 mL/min/1.73 m2 CBC W AUTO DIFFERENTIAL [[id number]] (Abnormal) Collected: 10/25/226 Order Status: Completed Specimen: Blood Updated: 10/25/2226 WBC 16.6 10??3/uL RBC 2.65 10??6/uL Hemoglobin 8.2 g/dL Hematocrit 25.1 % MCV 94.7 fL MCH 30.9 pg MCHC 32.7 g/dL RDW-SD 45.8 fL RDW-CV 13.4 % Platelet Count 402 10??3/uL MPV 10.2 fL nRBC Absolute 0.03 10??3/uL nRBC Auto 0.2 /100 WBC Neutrophils % 72.0 % Lymphocytes % 15.7 % Monocytes % 8.7 % Eosinophils % 2.1 % Basophil % 0.4 % Neutrophils Absolute 11.95 10??3/uL Lymphocyte Absolute 2.60 10??3/uL Monocytes Absolute 1.45 10??3/uL Eosinophils Absolute 0.34 10??3/uL Basophils Absolute 0.06 10??3/uL Immature Granulocytes % 1.1 % Immature Granulocytes Absolute 0.18 GLUCOSE - POINT OF CARE [[id number]] Collected: 10/24/222015 Order Status: Completed Specimen: Blood Updated: 10/24/222024 Glucose WB/POC 111 mg/dL Specimen Type Cap Fingerstick GLUCOSE - POINT OF CARE [[id number]] (Abnormal) Collected: 10/24/22 1237 Order Status: Completed Specimen: Blood Updated: 10/24/22 1734 Glucose WB/POC 130 mg/dL Specimen Type Cap Fingerstick GLUCOSE - POINT OF CARE [[id number]] Collected: 10/24/22 1710 Order Status: Completed Specimen: Blood Updated: 10/24/22 1711 Glucose WB/POC 112 mg/dL Specimen Type Cap Fingerstick LUPUS ANTICOAGULANT PANEL [[id number]] (Abnormal) Collected: 10/23/222028 Order Status: Completed Specimen: Blood Updated: 10/24/22 1058 APTT 21.4 Seconds PT 13.4 Seconds INR 1.0 STACLOT-LA Buffer 30.2 Seconds STACLOT-LA Phospholipid 26.9 Seconds STACLOT-LA Delta 3.3 Seconds Interpretation STACLOT-LA Negative Comment: Up to 15-20% of patients with lupus anticoagulant associated with antiphospholipid antibody syndrome (APAS) will have negative STACLOT-LA results. For these patients we recommend additional testing to include the Dilute Edgar Viper Venom Time (DRVVT) test. Immunoassay measurements of anti- cardiolipin and anti-beta-2 glycoprotein 1 are recommended if the DRVVT, and STACLOT-LA tests are negative and there is clinical suspicion of APAS. GLUCOSE - POINT OF CARE [[id number]] (Abnormal) Collected: 10/24/22 0915 Order Status: Completed Specimen: Blood Updated: 10/24/22 0916 Glucose WB/POC 130 mg/dL Specimen Type Cap Fingerstick Imaging: CT CARDIAC ANGIO STRUCT MORPH Result Date: 10/25/2022 Impression: 1. 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 2. Patent coronary vessels within the limitation of the motion artifact given the elevated heart during this exam > Interpreting Provider: Pepe Gonzalez MD on 10/25/2022 12:03 AM MRI BRAIN WWO CONTRAST Result Date: 10/24/2022 IMPRESSION: 1.Redemonstration of postoperative changes of a right hemicraniectomy with expected postsurgical changes as outlined above. 2.Redemonstration of evolving large right MCA territory infarction with extensive cytotoxic edema and mild external herniation of the brain through the craniectomydefect. Persistent local mass effect on the right cerebral hemisphere, effacement of the right lateral ventricle, and approximately 3-4 mm [id number] midline shift, grossly similar to the prior. 3.Mild dilation of the left lateral ventricle may represent subtle left ventricular entrapment, overall grossly similar to prior. 4.Additional multiple foci of abnormal diffusion within the left frontotemporal lobes with associated T2 FLAIR hyperintensity representing additional small acute to subacute infarcts, likely of cardioembolic etiology. Findings communicated to Dr. Mohr by Dr. Major at 1138 hours on 10/24/2022 with readback comprehension and verification. Report dictated by Tim Major MD (resident services coordinator). Jasper Ornelas MD have personally reviewed and interpreted this examination/study. > Interpreting Provider: Jasper Sifuentes MD on 10/24/2022 1:[address] HEAD WO CONTRAST Result Date: 10/23/2022 IMPRESSION: 1.Redemonstration of postsurgical changes of decompressive craniectomy and evolving right middle cerebral artery territory infarct. 2.No hemorrhagic transformation. 3.Extensive cytotoxic edema and mass effect with approximately 2 mm midline shift, [place] similar or slightly improved from prior. 4.Stable right intracranial pressure monitor. The report is dictated by Miranda Bowen MD(resident services coordinator) Jasper Ornelas MD have personally reviewed and interpreted this examination/study. > Interpreting Provider: Jasper Sifuentes MD on 10/23/2022 9:[address] HEAD WO CONTRAST Result Date: 10/22/2022 IMPRESSION: 1.Redemonstration of postsurgical changes of decompressive right hemicraniectomy for evolving right middle cerebral artery territory infarct. There is significant edema and mass effect with approximately 4 mm of midline shift, unchanged from prior. No evidence of new acute intracranial hemorrhage. > Interpreting Provider: Lonnie Rae MD on 10/22/2022 3:[address] HEAD WO CONTRAST Result Date: 10/22/2022 IMPRESSION: 1.Stable appearance of postsurgical changes of decompressive right hemicraniectomy for evolving right middle cerebral artery territory infarct. There is significant edema and mass effect with approximately 4 mm of midline shift, unchanged from prior. No evidence of new acute intracranial hemorrhage. Report dictated by Lorenzo Horta MD (nursing resident). I, Lonnie Rae MD have personally reviewed and interpreted this examination/study. > Interpreting Provider: Lonnie Rae MD on 10/22/2022 3:[address] HEAD WO CONTRAST Result Date: 10/20/2022 IMPRESSION: Interval postsurgical changes of decompressive right hemicraniectomy with ICP monitor and subdural drain in place. 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 > Dictated by Bassam Jovel M.D. (nursing resident) Gonzalez Ornelas MD have personally reviewed and interpreted this examination/study. > Interpreting Provider: Gonzalez Velasco MD on 10/20/2022 11:[address] HEAD NON CONTRAST Result Date: 10/20/2022 IMPRESSION: Findings consistent with a large acute area of infarction in the right cerebral hemisphere in the distribution of the right middle cerebral artery with mass effect and approximately 4 mm of midline shift right to left. There is no definite hemorrhagic transformation. There is hyperdensity of the right middle cerebral artery likely representing thrombus. Clinical correlation and continued close interval follow-up are recommended. Results discussed with the stroke team physician, Dr. Stephanie Hester, on 20 October 2022 approximately 1225 hours. > Interpreting Provider: Joni Fabian MD on 10/20/2022 12:[address] ANGIO BRAIN NECK STROKE Result Date: 10/19/2022 IMPRESSION: 1. Occlusion of the distal M1 [...] Lonnie Rae MD on 10/19/2022 8:[address] BRAIN - Stroke Result Date: 10/19/2022 IMPRESSION: 1. No acute intracranial hemorrhage. 2. [...] Lonnie Rae MD on 10/19/2022 8:15 AM Hospital Problems on Admission: Right middle cerebral artery stroke (CMS/HCC) (POA: Unknown) Acute cerebrovascular accident (CVA) due to embolism of right middle cerebral artery (CMS/HCC) (POA: Yes) Nihss score 9 (POA: Yes) Received intravenous tissue plasminogen activator (tPA) in emergency department (POA: Yes) GERD (gastroesophageal reflux disease) (POA: Yes) Hemianopsia (POA: Yes) Weakness (POA: Yes) Left-sided sensory deficit present (POA: Yes) Gaze palsy (POA: Yes) Migraine (POA: Unknown) Hypertension (POA: Unknown) Assessment Consuelo aDrby is a 41 year old female presenting for R sided gaze preference, L hemianopsia, L arm and L leg hemiparesis, and L extinction. CTA showed RMCA M1 occlusion. S/P TNK and MT with TICI 2B recanalization. S/P right decompressive hemicraniectomy. SARAH showed vegetation on aortic side of Lcoronary cusp. ?? Possible differentials include infective endocarditis, nonbacterial thrombotic endocarditis, and fibroelastoma. To workup IE, blood cultures have been sent and preliminary 24 hour read is no growth. Started vancand ceftriaxone empirically. Pending nonbacterial thrombotic endocarditis workup. SARAH has been negative, noncontributory proteinC and S. Pending lupus anticoag, cardiolipin, beta 2 glucoprotein antibodies. Family history of Sjogren in sister, daughter with celiac, children with immunodeficiency. Another differential is fibroelastoma due to pedunculated structure on aortic valve. Diagnosis would need to be done by microscopy. ?? Plan Neurological EVD open at 0: drained ICP: CPP: # R MCA syndrome S/P TNK, mechanical thrombectomy, decompressive R hemicraniectomy Plan: - Neurological checks q1 - Pupillometer checks q1, recorded NPI - Aspirin 81 mg daily - Lipitor 80 daily - Head of bed > 30?? - Avoid hypoglycemia, hyponatremia, and hyperthermia # Hx of migraines - continue verapamil 120 Cardiovascular Pulse Min: 75 Max: 147, BP Min: 95/52 Max: 174/91 # 6x7 mm independently mobile mass on aortic side of L coronary cusp - Cardio will continue to follow # Hx of HTN - continue metoprolol 25 BID - Blood pressure goal: SBP<180, map>70 Respiratory # acute respiratory faillure - bronchial hygiene order placed - continue Robitussin - Aspiration precautions - Elevate head of bed - Maintain oxygen saturation > 92% - Monitor for respiratory distress Renal/Electrolytes Intake/Output Summary (Last 24 hours) at 10/25/2022 0753 Last data filed at 10/25/2022 0600 Gross per 24 hour Intake 1000 ml Output 1425 ml Net -425 ml # urinary retention ?? - bladder scans, straight cath (threshold of 250 ml) - Monitor intake and output - Replete electrolytes as needed Infectious Disease Temp (24hrs), Av.8 ??F (37.1 ??C), Min:97.7 ??F (36.5 ??C), Max:99.3 ??F (37.4 ??C) - ID is following for possible IE etiology - continue vanc and ceftriaxone - CT chest, abdomen, pelvis ordered, per ID - Monitor for fevers - Ramirez culture if febrile Gastrointestinal # Hx of GERD ?? 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 # Normocytic anemia - 8.2 from 8.0 yesterday - transfuse if Hgb < 7 ?? DVT ppx: Lovenox started on 10/22, SCD ?? Workup for hypercoagulabilities: SARAH negative, noncontributory protein C and S - pending lupus anticoag, cardiolipin, beta 2 glucoprotein antibodies Musculoskeletal No active issues Disposition - PT/OT eval ordered Feeds/Fluids: NG tube Analgesia: tylenol PRN Sedation: none Thromboprophylaxis:Lovenox, SCDs in place HOB: >30 degrees Ulcer Ppx: Prevacid 30 Glucose: wnl HOB: >30 SBT: n/a, extubated BR: senna, miralax Indwelling lines: PIV x2 De-escalation: continue ICU Family: updated at bedside Cordero Kyle Prado Medical Student, MS3 [facility]. Associated attestation - Shahbaz Bowen MD - 10/25/2022 3:[address] Mohr's note for todays plan. * Emir Vail MD - 10/25/2022 7:47 AM CDT Images from the original note were not included. I have seen and examined the patient with the resident and I agree with the findings and plan of care as documented by the resident. Date of Service: 10/25/2022 Emir Vail MD Multidisciplinary rounds were held at 9am and the patient's care and recovery plan were reviewed and developed with the assembled team. Consuelo Darby is a 41 year old 41 year old??with GERD, tobacco, presented on 8/10 with Right MCA syndrome s/p TNK. CTA 1 M1 occlusion. S/P mechanical thrombectomy with R M1 recanalization and TICI2b. CT 10/20/22 with edema and mildshift. On exam, lid apraxia and following briskly on right; slight LLE movement. Hx of OCP use. S/Pdecompressive right hemicraniectomy. Echo showed a mobile aortic valve vegetation. Mechanism of infarct is the aortic valve vegetation of unknown etiology. Possibilities include infectious, autoimmune, aortic valve fibroelastoma. Cardiac CT was obtained to further characterize the lesion and showed a 6 mm lesion favored to represent a vegetation rather than a fibrosed hemangioma. Her CTA head/neck was reviewed with neuro-radiology and neuro-IR. There is question of two small focal outpouchings of the left A4 segment and left MCA. Although the vascular abnormalities present onCTA are more proximal and likely represent a small aneurysm, the possibility of associated mycotic aneurysms cannot be excluded. ID consult placed for evaluation and input and recommended broad spectrum ABx pending 48 hour bloodcultures. Anticoagulation with heparin is reasonable although she has a sizable stroke and the risk of hemorrhage into this is present. We will check CTH today for baseline prior to start of anticoagulation with heparin gtt. If blood cultures at 48 hours are negative continue with anticoagulation with heparin gtt. - Appreciate input consulting teams - Continue q1h neurological monitoring. - Repeat CT at 0400 daily or if neurologic decline - Contact neurology immediately if neurologic decline - On ASA and statin, can discontinue aspirin after starting heparin gtt - Follow rheumatologic and hypercoagulable work up The case and plan was discussed extensively with the family who agreed with the plan and verbalizedtheir understanding of the potential risks and benefits. Problem List Right middle cerebral artery stroke (CMS/HCC) (POA: Unknown) Acute cerebrovascular accident (CVA) due to embolism of right middle cerebral artery (CMS/HCC) (POA: Yes) Nihss score 9 (POA: Yes) Received intravenous tissue plasminogen activator (tPA) in emergency department (POA: Yes) GERD (gastroesophageal reflux disease) (POA: Yes) Hemianopsia (POA: Yes) Weakness (POA: Yes) Left-sided sensory deficit present (POA: Yes) Gaze palsy (POA: Yes) Migraine (POA: Unknown) Hypertension (POA: Unknown) See Resident note for the remaining problem specific plan. 6 MEDICATIONS FOR CURRENT ENCOUNTER: SCHEDULED MEDICATIONS: *Hold/Avoid Medication, Other, 0800 and 2000 *Hold/Avoid Medication, Other, DIRECTED 0.9% NaCl injection 3 mL, Intracatheter, q8h 0.9% NaCl injection 3 mL, Intracatheter, q8h artificial tears ophthalmic ointment, Each Eye, q8h aspirin chew tablet 81 mg, Enteral Tube, QDAY atorvastatin (Lipitor) tablet 80 mg, Enteral Tube, AT BEDTIME cefTRIAXone (Rocephin) 2,000 mg in 0.9% NaCl IV 50 mL IVPB, Intravenous, q24h chlorhexidine (Peridex) 0.12 % oral solution 15 mL, Mouth/Throat, BID enoxaparin (Lovenox) injection 40 mg, Subcutaneous, QDAY gadobutrol (Gadavist) injection, Intravenous, Contrast - Once guaiFENesin (Robitussin) solution 10 mL, Enteral Tube, q12h iopamidol (Isovue 370) 76 % contrast, Intravenous, Contrast - Once lansoprazole (Prevacid) suspension 30 mg, Enteral Tube, QDAY BEFORE BREAKFAST loratadine (Claritin) tablet 10 mg, Enteral Tube, QDAY metoprolol tartrate IR (Lopressor) tablet 25 mg, Enteral Tube, q12h polyethylene glycol 3350 (Miralax) packet 17 g, Enteral Tube, QDAY senna-docusate (Senokot-S) tablet 1 tablet, Enteral Tube, QDAY tamsulosin (Flomax) capsule 0.4 mg, Enteral Tube, QDAY vancomycin (Vancocin) 1,250 mg in 250 mL NaCl IVPB Premix, Intravenous, q8h vancomycin (Vancocin) IV dose per pharmacy, Does not apply, DIRECTED verapamil (Isoptin) tablet 40 mg, Enteral Tube, q8h vitamin D3 (Cholecalciferol) 25 MCG (1000 UNITS) tablet 2,000 Units, Enteral Tube, QDAY [COMPLETED] glycopyrrolate (Robinul) injection 0.2 mg, Intravenous, Once ?? [COMPLETED] vancomycin (Vancocin) 2,250 mg in 545 mL IVPB, Intravenous, Once ?? CONTINUOUS MEDICATIONS: PRN MEDICATIONS: Or 0.9% NaCl injection 1-10 mL, Intracatheter, PRN 0.9% NaCl injection 3 mL, Intracatheter, PRN acetaminophen (Tylenol) tablet 500 mg, Oral, q4h PRN dextrose 10 % IV bolus, Intravenous, PRN dextrose 10 % IV bolus, Intravenous, PRN fentaNYL (PF) (Sublimaze) injection 50 mcg, Intravenous, q2h PRN glucagon (Glucagen) injection 1 mg, Subcutaneous, PRN glucose (Diabetic Use) (Dex4 Glucose) oral liquid, Oral, PRN glucose (Diabetic Use) oral gel, Oral, PRN glucose chew tablet 4 tablet, Oral, PRN ?? oxymetazoline (Afrin) 0.05 % nasal spray 2 spray, Each Nostril, BID PRN Patient Vitals for the past 24 hrs: Temp Pulse Resp BP 10/25/22 0657 97.8 ??F (36.6 ??C) -- -- -- 10/25/22 0600 99.2 ??F (37.3 ??C) 90 21 129/74 10/25/22 0500 -- 95 20 141/81 10/25/22 0400 99 ??F (37.2 ??C) 101 15 123/82 10/25/22 0300 -- 101 16 121/97 10/25/22 0200 99.3 ??F (37.4 ??C) 98 18 122/69 10/25/22 0100 -- 93 25 117/74 10/25/22 0000 99.1 ??F (37.3 ??C) (!) 115 15 132/56 10/24/22 2300 -- 87 22 122/61 10/24/22 2200 97.7 ??F (36.5 ??C) 94 21 114/59 10/24/22 2100 -- (!) 114 29 124/73 10/24/22 2000 98.5 ??F (36.9 ??C) (!) 118 20 136/70 10/24/22 1900 -- (!) 142 23 158/70 10/24/22 1830 -- (!) 124 28 142/78 10/24/22 1800 -- 109 (!) 38 151/80 10/24/22 1730 -- 104 23 137/75 10/24/22 1700 -- 103 22 129/69 10/24/22 1630 -- 96 18 135/62 10/24/22 1600 99.2 ??F (37.3 ??C) (!) 112 22 131/70 10/24/22 1530 -- (!) 122 24 136/67 10/24/22 1500 -- (!) 128 22 132/98 10/24/22 1430 -- (!) 112 18 134/80 10/24/22 1400 -- (!) 120 20 144/86 10/24/22 1330 -- (!) 113 22 147/94 10/24/22 1300 -- 101 22 130/80 10/24/22 1230 -- 97 23 119/71 10/24/22 1200 98.9 ??F (37.2 ??C) 98 22 129/79 10/24/22 1130 -- 85 21 123/66 10/24/22 1104 -- 102 31 127/75 10/24/22 0954 -- 90 -- -- 10/24/22 0930 -- 98 21 114/67 10/24/22 0900 -- 86 23 113/69 10/24/22 0830 -- 94 21 124/67 10/24/22 0817 -- (!) 110 -- -- 10/24/22 0800 99.2 ??F (37.3 ??C) 105 23 128/75 Recent Labs Component Name 10/25/22 00010/23/22202810/23/22 0129 NA 140 140 140 CL 106 110* 108* CO2 25 23 25 BUN 16 14 13 CREATININE 0.48* 0.56 0.51* CALCIUM 9.0 8.5 8.3* PHOS 3.7 3.1 3.4 Recent Labs Component Name 10/25/22 00010/23/22202810/23/22 0129 10/22/22 0153 WBC 16.6* 17.4* 16.7* - RBC 2.65* 2.58* 2.52* - HGB 8.2* 8.0* 7.8* - HCT 25.1* 24.4* 23.8* - PLT - - - 199 Recent Labs Component Name 10/20/22 0302 06/15/22 0757 CHOL 173 204* TRIG 201* 251* HDL 42 37* LDLCALC 91 117* Recent Labs Component Name 10/20/22 1015 HGBA1C 6.0* EAG 126 Recent Labs Component Name 10/25/22 0007 10/23/22202810/23/22 0129 PLTCOUNT 402* 310 265 * Tim Marinelli MD - 10/25/2022 5:44 AM CDT Stroke Service Daily Progress Note Consuelo Darby Age: [age] year old Date of : 1980 Date of Admission: 10/19/2022 Hospital Day: 6 Subjective Consuelo Darby is a 41yo M hemiplegic migraine, GERD, GENESIS. who developed acute onset L sided weakness, L-sided sensory deficits, and dysarthria. L sided weakness resolved in route and dysarthria improved in route. On arrival patient noted to hae L gaze plasy, L hemainopsia, mild dysarthria, and extinction. NIHSS: 7. Patient was given TNK and code IVR was activated. TICI2b revascularization of theR MCA M1 occlusion. Admitted to ICU for post- thrombectomy monitoring. Repeat CTH showing edema in RMCA territory. On 10/20/22 patient taken for hemicraniectomy, post-op CTH showing stable midline shift. Initial hypercoag work up negative, repeat in [address], QDay CTH. NSGY following. CTH 10/22 showing large R MCA infarct, minimal midline. shift. Starting lovenox. -10/23- SARAH concerning for aortic cusp vegetations. Rheum, Cardiology and CT Surgery consulted. Blood clx ordered for plan to start heparin gtt after 24 prelim negative -10/24 - patient had a temp 100.2, increase in WBC. ID consulted. Started empiric abx. ?? Interval History: NAEON. Extubated yesterday to ME. Dentist evaluated, no concern for dental issues. CT cardiac resulted more concerning for vegetation. Plan for CT head and CTC/A/P and start heparin gtt after 48hr prelim blood clx no growth. Objective Patient Vitals for the past 24 hrs: BP Temp Temp src Pulse Resp SpO2 10/25/22 0300 121/97 -- -- 101 16 99 % 10/25/22 0200 122/69 99.3 ??F (37.4 ??C) Axillary 98 18 99 % 10/25/22 0100 117/74 -- -- 93 25 99 % 10/25/22 0000 132/56 99.1 ??F (37.3 ??C) -- (!) 115 15 98 % 10/24/22 2300 122/61 -- -- 87 22 100 % 10/24/22 2200 114/59 97.7 ??F (36.5 ??C) Axillary 94 21 97 % 10/24/22 2100 124/73 -- -- (!) 114 29 100 % 10/24/22 2000 136/70 98.5 ??F (36.9 ??C) Oral (!) 118 20 98 % 10/24/22 1900 158/70 -- -- (!) 142 23 99 % 10/24/22 1830 142/78 -- -- (!) 124 28 99 % 10/24/22 1800 151/80 -- -- 109 (!) 38 99 % 10/24/22 1730 137/75 -- -- 104 23 99 % 10/24/22 1700 129/69 -- -- 103 22 99 % 10/24/22 1630 135/62 -- -- 96 18 100 % 10/24/22 1600 131/70 99.2 ??F (37.3 ??C) Axillary (!) 112 22 100 % 10/24/22 1530 136/67 -- -- (!) 122 24 100 % 10/24/22 1500 132/98 -- -- (!) 128 22 99 % 10/24/22 1430 134/80 -- -- (!) 112 18 100 % 10/24/22 1408 -- -- -- -- -- 100 % 10/24/22 1400 144/86 -- -- (!) 120 20 97 % 10/24/22 1330 147/94 -- -- (!) 113 22 100 % 10/24/22 1300 130/80 -- -- 101 22 99 % 10/24/22 1230 119/71 -- -- 97 23 100 % 10/24/22 1200 129/79 98.9 ??F (37.2 ??C) Axillary 98 22 98 % 10/24/22 1130 123/66 -- -- 85 21 98 % 10/24/22 1104 127/75 -- -- 102 31 99 % 10/24/22 0954 -- -- -- 90 -- 99 % 10/24/22 0930 114/67 -- -- 98 21 97 % 10/24/22 0900 113/69 -- -- 86 23 99 % 10/24/22 0830 124/67 -- -- 94 21 99 % 10/24/22 0817 -- -- -- (!) 110 -- 100 % 10/24/22 0800 128/75 99.2 ??F (37.3 ??C) Axillary 105 23 99 % 10/24/22 0730 127/98 -- -- (!) 116 22 99 % 10/24/22 0700 134/79 -- -- 98 23 98 % 10/24/22 0600 144/77 98.7 ??F (37.1 ??C) Axillary (!) 116 24 100 % Intake/Output Summary (Last 24 hours) at 10/25/2022 0545 Last data filed at 10/25/2022 0200 Gross per 24 hour Intake 1684 ml Output 1425 ml Net 259 ml Exam: Cortical Function Mental Status Awake, alert, follows commands Orientation REYNOLD Language Aphasia Visual Powell Intact bilaterally to confrontation Neglect No visual neglect noted, no tactile neglect noted Cranial Nerves II Pupils 3 mm and bilaterally reactive to light. Fundoscopic exam not performed. VIII Hearing is intact bilaterally to finger rub. III/IV/ Extraocular muscles intact. No diplopia, ptosis, nystagmus or convergence abnormalities noted. IX/X Palate elevated symmetrically without phonation abnormalities noted. V Facial sensation symmetric to light touch and intact bilaterally. Corneal reflex not examined. XIHead turning and shoulder shrug are intact. VII No facial palsy noted. XII Tongue is midline with normal movements and no atrophy noted. Motor Function Movement No abnormalities noted Bulk No abnormalities noted Tone No abnormalities noted Moves RUE and RLE, tries to withdraw to pain in LUE and LLE Sensory Light Touch REYNOLD Noxious Stimuli Symmetric and intact bilaterally Labs: Recent Labs Component Name 10/25/22 0007 10/23/22202810/23/2212810/22/22 0153 WBC 16.6* 17.4* 16.7* - RBC 2.65* 2.58* 2.52* - HGB 8.2* 8.0* 7.8* - HCT 25.1* 24.4* 23.8* - PLT - - - 199 Recent Labs Component Name 10/25/22 00010/23/22202810/23/22128 NA 140 140 140 CL 106 110* 108* CO2 BUN 16 14 13 CREATININE 0.48* 0.56 0.51* CALCIUM 9.0 8.5 8.3* No results for input(s): MG in the last 34639 hours. Recent Labs Component Name 10/25/22 00010/23/22202810/23/22128 PHOS 3.7 3.1 3.4 Recent Labs Component Name 10/23/22202810/20/22 03010/19/22 0824 PT 13.4 13.6 12.3 INR 1.0 1.1 0.9 PTT 21.4* 24.4 - No results for input(s): A1C in the last 30948 hours. Recent Labs Component Name 10/20/22 0302 06/15/22 0757 CHOL 173 204* HDL 42 37* LDLCALC 91 117* TRIG 201* 251* Recent Labs Component Name 06/15/22 0757 TSH 1.873 No results for input(s): CKMB, CKTOTAL, CKMB, TROPONINI, BNP in the last [address] ANGIO BRAIN NECK STROKE Result Date: 10/19/2022 PROCEDURE: CT ANGIO BRAIN NECK STROKE, DATE/TIME OF EXAM: 10/19/2022 8:16 AM, LOCATION [facility] INDICATION: Code Stroke ADDITIONAL CLINICAL INFORMATION: Ordering Provider Reason For Exam: Technologist Note: Additional: EXAMINATION: 1. Computed tomographic (CT) angiography of the head with contrast 2. CT angiography of the neck with contrast TECHNIQUE: CT angiography of the headand neck was obtained after the uneventful administration [...] a concurrent noncontrasted head CT for detailed intracranialfindings including findings suggesting an acute right MCA [...] arteries are patent. The basilar artery is patentpatent. 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 IMPRESSION: 1. [...] Lonnie Rae MD on 10/19/2022 8:[address] BRAIN - Stroke Result Date: 10/19/2022 PROCEDURE: CT BRAIN STROKE, DATE/TIME OF EXAM: 10/19/2022 8:04 AM, LOCATION [facility] INDICATION: Code Stroke ADDITIONAL CLINICAL INFORMATION: Ordering [...] of scott-white matter differentiation in the right frontotemporallobes and the right insula, concerning for an acute infarct. There is suggestion of a hyperdense right MCA likely represent acute thrombus (series 5 image 25). No acute intracranial hemorrhage or intra- or extra-axial fluid collections are identified. The ventricles are of normal size, shape, and morphology. The basal cisterns are patent. No mass effect or midline shift is seen. The scott-white mat ter differentiation is normal. The visualized portions of [...] Lonnie Rae MD on 10/19/2022 8:15 AM Right middle cerebral artery stroke (CMS/HCC) (POA: Unknown) Acute cerebrovascular accident (CVA) due to embolism of right middle cerebral artery (CMS/HCC) (POA: Yes) Nihss score 9 (POA: Yes) Received intravenous tissue plasminogen activator (tPA) in emergency department (POA: Yes) GERD (gastroesophageal reflux disease) (POA: Yes) Hemianopsia (POA: Yes) Weakness (POA: Yes) Left-sided sensory deficit present (POA: Yes) Gaze palsy (POA: Yes) Migraine (POA: Unknown) Hypertension (POA: Unknown) Assessment ??oCnsuelo Darby is a 41 year old female who presented on 10/19 with Right MCA syndrome s/p TNK. CTA 1 M1 occlusion. S/P mechanical thrombectomy with R M1 recanalization and TICI2b. CT 10/20/22 with edema and mild shift. S/P decompressive right hemicraniectomy. Echo showed a mobile aortic valve vege tation. MRI brain with scattered cortical R hemisphere infarcts with petechial ?? Stroke Type: Ischemic Stroke Mechanism: ESUS ?? Plan Neurological ?? R M1 ischemic stroke; active - s/p TICI2b revascularization, TNK - s/p decompressive hemicrani on 10/20 for malignant MCA - HbA1C: 6.0, LDL: 91, Cardiac Enzymes; wnl - q1h vitals and neurological checks - ASA +statin - Repeat CT head ordered and will get CT C/A/P per ID recs at the same time - Repeat CT head at 4 am after heparin gtt started Core Measures TNK administration: yes Anti-thrombotic: ASA Statin: atorvastatin 80mg DVT prophylaxis: Lovenox Swallow Evaluation: pending PT/OT Evaluation: pending Smoking cessation: N/A Migraine - verapamil 40 TID GENESIS - cont home amitriptyline Cardiovascular ? 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 CT C/A/P/ ordered. - dentist evaled teeth, no concern - Follow blood cultures. If negative at 48 h will start heparin gtt - CT cardiac concerning more for vegetation ?? HTN: - home metop Blood Pressure Goals: SBP <160, map >70 Respiratory ? #AHRF - Extubated to NC - Aspiration precautions - Elevate head of bed - Maintain oxygen saturation > 92% - Monitor for respiratory distress Gastrointestinal ? No acute issues ??-NPO until passes swallow. 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 No acute issues ?? - Monitor intake and output - Replete electrolytes as needed Hematology ? No acute issues ?? - Transfuse for hemoglobin < 7.0 g/dL Endocrine ? Vit D deficiency - Vit D 2,000 U daily Infectious Disease ? Concern for vegetation on left coronary cusp ?? - ID consult. See details above Musculoskeletal ? No acute issues Disposition ? - PT/OT pending ?? Individual Modifiable Risk Factors Hypertension: no Hyperlipidemia: no Diabetes: no Atrial Fibrillation: no Tobacco: no Tim Marinelli PGY-4 Neurology resident * Deyanira Richard RN - 10/25/2022 2:26 AM CDT Problem: ELOPEMENT/ABDUCTION Goal: Risk for elopement &/or abduction during hospitalization is minimized Outcome: Progressing Problem: Safety related to restraint use Goal: Absence of injury while restrained Outcome: Progressing Problem: Fall Risk Goal: Fall risk and fall related injury risk are minimized (interventions related to the fall risk can be found in the flowsheet documentation) Outcome: Progressing Problem: Skin Integrity Goal: Skin integrity is maintained or improved Outcome: Progressing Problem: Pain/Discomfort Goal: Patient exhibits reduced pain/discomfort as evidenced by pain scores Outcome: Progressing Goal: Patient uses pharmacological and non-pharmacological pain management strategies. Outcome: Progressing Goal: Patient verbalizes acceptable level of pain relief and ability to engage in desired activity. Outcome: Progressing Problem: Neurological Deficit Goal: Neurological status is stable or improving Outcome: Progressing Problem: Hemodynamic Status/Cardiac Output Goal: Patient has stable vital signs and fluid balance Outcome: Progressing Problem: Oxygenation/Respiratory Function Goal: Respiratory rate/effort will be within specified limits Outcome: Progressing Problem: Mobility Goal: Patient's mobility/activity will be maintained as optimum level for age, diagnosis and physical limitations Outcome: Progressing Goal: Continuum of care needs are further met through referral to outpatient services when appropriate. Outcome: Progressing Goal: Patient reports the ability to perform Activities of Daily Living. Outcome: Progressing Problem: Communication Impairment/Dysarthria Goal: Ability to express needs and understand communication Outcome: Progressing Problem: Nutrition Goal: Nutritional status is improving Outcome: Progressing Problem: Aspiration Precautions Goal: Patient's risk of aspiration is minimized Outcome: Progressing Problem: Glycemic Control Goal: Clinical indication of glycemia balance is achieved Outcome: Progressing Problem: Knowledge Deficit,Education,Discharge Plan Goal: The patient/family will understand cerebrovascular disease and its symptoms, treatment and management Outcome: Progressing Problem: Oral Intake: Inadequate oral intake Goal: Total intake will meet estimated nutrient needs Outcome: Progressing Problem: Swallowing Goal: LTG - Patient will tolerate the least restrictive diet consistency to allow for safe consumption of daily meals Outcome: Progressing Problem: Transfers Goal: STG - Transfer from bed to chair Outcome: Progressing Problem: Risk for Violence: Self-Directed or Other Directed Description: Diagnosis: Risk for self-directed Violence or Risk for Directed Violence Risk Factors: Biochemical/neurologic imbalances, impulsivity, manic excitement, psychotic symptomatology, rage reaction, restlessness Possibly Evidenced By: agitated behaviors, delusional thinking, hallucinations, loud/threatening/profane speech, poor impulse control, provocative behaviors, verbal threats against others, verbal threats against self Goal: Patient will verbalize control of feelings. Outcome: Progressing Goal: Patient will respond to interventions when potential or actual loss of control occurs. Outcome: Progressing Goal: Patient will refrain from provoking others to physical harm. Outcome: Progressing Goal: Patient will display nonviolent behaviors toward others in the hospital, with the aid of medications and nursing interventions. Outcome: Progressing Goal: Patient will seek help when experiencing aggressive impulses. Outcome: Progressing Goal: Patient will refrain from verbal threats and loud, profrane language toward others. Outcome: Progressing Goal: Patient will be safe and free from injury. Outcome: Progressing * Sajan Del Rosario, PharmD - 10/25/2022 1:36 AM CDT ACTIVE CONSULTS TO PHARMACY/DISEASE STATE MONITORING Pharmacy Consult: Vancomycin Note: The latest IDSA/SIDP guideline for vancomycin therapeutic monitoring recommend monitoring thearea under the serum concentration vs. time curve for 0- 24 hours (AUC24) as the preferred therapeutic target for suspected/confirmed MRSA infections. The goal AUC 400-600 mg/L/hr has been shown to decrease overall drug exposure minimizing the risk of acute kidney injury without compromising clinical outcomes. Trough guided therapy and serial random level assessment is still appropriate in some patient populations. REF: https://www.idsociety.org/practice-guideline/vancomycin/ ASSESSMENT/PLAN Indication: suspected Sepsis with Goal Level: 15-20 mcg/ml ID consulted/following: No Assessment ?? Renal assessment: considered stable at this time as patient has Estimated Creatinine Clearance: 176.1 mL/min (A) (by C-G formula based on SCr of 0.48 mg/dL (L)). ?? Historical dosing data that influences current dosing decisions: No ?? History/current positive cultures for MRSA or other pertinent micro: No Plan ??? Regimen: o Loading dose: 2250 mg o Maintenance dose: 1250 mg, o Dosing interval: Q8 hr o This regimen calculates to provide a estimated trough = 12.6 mcg/mL and/or AUC of 507 mg-h/L ??? Monitoring o Will order a vancomycin trough level prior to subsequent maintenance dose on 10/26 at 0900 and adjust regimen if indicated. o Continue to monitor patient???s renal function and cultures as needed. Sajan Del Rosario PharmD 10/25/2022 6:26 AM [facility] Vancomycin Guideline SUBJECTIVE/OBJECTIVE Consuelo Darby is a 41 year old female. The primary encounter diagnosis was Right middle cerebralartery stroke (CMS/HCC). Diagnoses of Weakness, Gaze palsy, Hemianopsia, Left-sided sensory deficitpresent, Dysarthria, At high risk for bleeding after thrombolytic therapy, Acute cerebrovascular accident (CVA) due to embolism of right middle cerebral artery (CMS/HCC), and Nihss score 9 were also pertinent to this visit. Height: 5' 4 (162.6 cm) Wt 95.3 kg (210 lb) Body mass index is 36.05 kg/m??. Recent Labs Component Name 10/25/22 0007 10/23/22202810/23/22 0129 10/21/22 2316 CREATININE 0.48* 0.56 0.51* 0.65 BUN 16 14 13 16 WBC 16.6* 17.4* 16.7* 18.4* Dialysis Orders (72h ago, onward) None Radiocontrast within 72 hours The 3 most recent administrations since 10/22/2022 are shown below each listed medication. Other Order Route Dose Action Date gadobutrol (Gadavist) injection Intravenous 9.5 mL $ Given - Contrast 10/24/2022 iopamidol (Isovue 370) 76 % contrast Intravenous 86 mL $ Given - Contrast 10/23/2022 Vancomycin Administrations from MAY (last 72 hours) Date/Time Action Medication Dose Rate 10/25/22 0200 $ New Bag/Syringe vancomycin (Vancocin) 2,250 mg in 545 mL IVPB 2,250 mg 242.22 mL/hr No results for input(s): VANCORNDM, VANCTROUGH, VANCOTROUGH, VANCOPEAK in the last 69877 hours. * Jorge Dodd - 10/25/2022 12:30 AM CDT Sherwin Patel and Yared followed up with pt's , Salo and mother in law at bedside. Salo shared an update about pt and their girls. Salo expressed thanks for prayers and presence. Inquired of Salo if anointing of the sick sacrament might be of value and support to pt and himself.Salo expressed interest. Was going to ask pt. 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 Shared with Salo that Mass is held on Wednesdays at noon. 309/ Jorge Dodd 10/25/2022 12:35 AM * Vickie Muller MD - 10/24/2022 3:55 PM CDT Stroke Service Daily Progress Note Consuelo Darby Age: [age] year old Date of : 1980 Date of Admission: 10/19/2022 Hospital Day: 5 Subjective Consuelo Darby is a 41yo M who developed acute onset L sided weakness, L-sided sensory deficits, and dysarthria. L sided weakness resolved in route and dysarthria improved in route. On arrival patient noted to hae L gaze plasy, L hemainopsia, mild dysarthria, and extinction. NIHSS: 7. Patient was given TNK and code IVR was activated. TICI2b revascularization of the R MCA M1 occlusion. Admitted to ICU for post- thrombectomy monitoring. Repeat CTH showing edema in R MCA territory. On 10/20/22 patient taken for hemicraniectomy, post-op CTH showing stable midline shift. Initial hypercoag work up negative, repeat in [address], QDay CTH. NSGY following. CTH 10/22 showing large R MCA infarct, minimal midline shift. Starting lovenox. ?? Medical history significant for hemiplegic migraine, GERD, GENESIS. ?? Interval History: Patient had a fever of 100.3, tachycardia 110-115, WBC continue to increase, today 17.4, MRI brain with scattered cortical R hemisphere infarcts. Objective Patient Vitals for the past 24 hrs: BP Temp Temp src Pulse Resp SpO2 10/24/22 1530 136/67 -- -- (!) 122 24 100 % 10/24/22 1500 132/98 -- -- (!) 128 22 99 % 10/24/22 1430 134/80 -- -- (!) 112 18 100 % 10/24/22 1408 -- -- -- -- -- 100 % 10/24/22 1400 144/86 -- -- (!) 120 20 97 % 10/24/22 1330 147/94 -- -- (!) 113 22 100 % 10/24/22 1300 130/80 -- -- 101 22 99 % 10/24/22 1230 119/71 -- -- 97 23 100 % 10/24/22 1200 129/79 98.9 ??F (37.2 ??C) Axillary 98 22 98 % 10/24/22 1130 123/66 -- -- 85 21 98 % 10/24/22 1104 127/75 -- -- 102 31 99 % 10/24/22 0954 -- -- -- 90 -- 99 % 10/24/22 0930 114/67 -- -- 98 21 97 % 10/24/22 0900 113/69 -- -- 86 23 99 % 10/24/22 0830 124/67 -- -- 94 21 99 % 10/24/22 0817 -- -- -- (!) 110 -- 100 % 10/24/22 0800 128/75 99.2 ??F (37.3 ??C) Axillary 105 23 99 % 10/24/22 0730 127/98 -- -- (!) 116 22 99 % 10/24/22 0700 134/79 -- -- 98 23 98 % 10/24/22 0600 144/77 98.7 ??F (37.1 ??C) Axillary (!) 116 24 100 % 10/24/22 0500 131/70 -- -- 98 22 95 % 10/24/22 0446 -- -- -- 97 -- 94 % 10/24/22 0400 133/75 98.6 ??F (37 ??C) Axillary (!) 110 23 96 % 10/24/22 0300 142/85 -- -- (!) 123 19 99 % 10/24/22 0200 134/70 98.9 ??F (37.2 ??C) Axillary (!) 115 20 97 % 10/24/22 0100 117/61 -- -- 92 24 97 % 10/24/22 0008 -- -- -- 91 -- 99 % 10/24/22 0000 130/72 98.5 ??F (36.9 ??C) Axillary (!) 116 16 98 % 10/23/22 2300 97/80 -- -- (!) 112 20 99 % 10/23/22 2200 110/70 98.6 ??F (37 ??C) Axillary 105 21 97 % 10/23/222114 -- -- -- (!) 111 -- 99 % 10/23/22 211 119/61 -- -- 106 -- -- 10/23/22 2100 119/61 -- -- 96 21 95 % 10/23/22 2000 136/68 98.7 ??F (37.1 ??C) Axillary (!) 120 20 100 % 10/23/22 1900 115/56 -- -- 100 20 98 % 10/23/22 1845 114/69 -- -- 104 24 98 % 10/23/22 1830 117/60 -- -- 99 21 98 % 10/23/22 1815 120/60 -- -- 108 (!) 34 99 % 10/23/22 1800 110/60 -- -- 98 21 98 % 10/23/22 1745 110/59 -- -- 97 21 98 % 10/23/22 1730 113/59 -- -- 98 18 98 % 10/23/22 1715 111/60 -- -- 93 19 99 % 10/23/22 1700 104/59 -- -- 90 18 99 % 10/23/22 1645 101/55 -- -- 89 19 99 % 10/23/22 1630 106/57 -- -- 97 19 99 % 10/23/22 1615 100/58 -- -- 95 20 99 % 10/23/22 1600 107/56 (!) 100.2 ??F (37.9 ??C) Axillary 101 20 99 % Intake/Output Summary (Last 24 hours) at 10/24/2022 1556 Last data filed at 10/24/2022 1000 Gross per 24 hour Intake 1396 ml Output 625 ml Net 771 ml Exam: Cortical Function Mental Status Awake, alert, follows commands Orientation REYNOLD Language Aphasia Visual Powell Intact bilaterally to confrontation Neglect No visual neglect noted, no tactile neglect noted Cranial Nerves II Pupils 3 mm and bilaterally reactive to light. Fundoscopic exam not performed. VIII Hearing is intact bilaterally to finger rub. III/IV/ Extraocular muscles intact. No diplopia, ptosis, nystagmus or convergence abnormalities noted. IX/X Palate elevated symmetrically without phonation abnormalities noted. V Facial sensation symmetric to light touch and intact bilaterally. Corneal reflex not examined. XIHead turning and shoulder shrug are intact. VII No facial palsy noted. XII Tongue is midline with normal movements and no atrophy noted. Motor Function Movement No abnormalities noted Bulk No abnormalities noted Tone No abnormalities noted Moves RUE and RLE, did not move L side Sensory Light Touch REYNOLD Noxious Stimuli Symmetric and intact bilaterally Temperature Not tested Pallesthesia Not tested Cerebellar FNF DALE HKS Right REYNOLD Deferred REYNOLD Left REYNOLD Deferred REYNOLD Gait Deferred Labs: Recent Labs Component Name 10/23/22202810/23/2212810/22/223 10/21/22 2316 WBC 17.4* 16.7* - 18.4* RBC 2.58* 2.52* - 2.62* HGB 8.0* 7.8* - 8.1* HCT 24.4* 23.8* - 25.1* PLT - - 199 - Recent Labs Component Name 10/23/22202810/23/2212810/21/22 2316 NA 140 140 142 CL 110* 108* 111* CO2 23 25 20* BUN 14 13 16 CREATININE 0.56 0.51* 0.65 CALCIUM 8.5 8.3* 8.0* No results for input(s): MG in the last 15121 hours. Recent Labs Component Name 10/23/22202810/23/2212810/21/22 2316 PHOS 3.1 3.4 2.7* Recent Labs Component Name 10/23/22202810/20/22 0302 10/19/22 0824 PT 13.4 13.6 12.3 INR 1.0 1.1 0.9 PTT 21.4* 24.4 - No results for input(s): A1C in the last 36197 hours. Recent Labs Component Name 10/20/22 0302 06/15/22 0757 CHOL 173 204* HDL 42 37* LDLCALC 91 117* TRIG 201* 251* Recent Labs Component Name 06/15/22 0757 TSH 1.873 No results for input(s): CKMB, CKTOTAL, CKMB, TROPONINI, BNP in the last [address] ANGIO BRAIN NECK STROKE Result Date: 10/19/2022 PROCEDURE: CT ANGIO BRAIN NECK STROKE, DATE/TIME OF EXAM: 10/19/2022 8:16 AM, LOCATION [facility] INDICATION: Code Stroke ADDITIONAL CLINICAL INFORMATION: Ordering Provider Reason For Exam: Technologist Note: Additional: EXAMINATION: 1. Computed tomographic (CT) angiography of the head with contrast 2. CT angiography of the neck with contrast TECHNIQUE: CT angiography of the headand neck was obtained after the uneventful administration [...] a concurrent noncontrasted head CT for detailed intracranialfindings including findings suggesting an acute right MCA [...] arteries are patent. The basilar artery is patentpatent. 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 IMPRESSION: 1. [...] Lonnie Rae MD on 10/19/2022 8:[address] BRAIN - Stroke Result Date: 10/19/2022 PROCEDURE: CT BRAIN STROKE, DATE/TIME OF EXAM: 10/19/2022 8:04 AM, LOCATION [facility] INDICATION: Code Stroke ADDITIONAL CLINICAL INFORMATION: Ordering [...] of scott-white matter differentiation in the right frontotemporallobes and the right insula, concerning for an acute infarct. There is suggestion of a hyperdense right MCA likely represent acute thrombus (series 5 image 25). No acute intracranial hemorrhage or intra- or extra-axial fluid collections are identified. The ventricles are of normal size, shape, and morphology. The basal cisterns are patent. No mass effect or midline shift is seen. The scott-white mat ter differentiation is normal. The visualized portions of [...] Lonnie Rae MD on 10/19/2022 8:15 AM Right middle cerebral artery stroke (CMS/HCC) (POA: Unknown) Acute cerebrovascular accident (CVA) due to embolism of right middle cerebral artery (CMS/HCC) (POA: Yes) Nihss score 9 (POA: Yes) Received intravenous tissue plasminogen activator (tPA) in emergency department (POA: Yes) GERD (gastroesophageal reflux disease) (POA: Yes) Hemianopsia (POA: Yes) Weakness (POA: Yes) Left-sided sensory deficit present (POA: Yes) Gaze palsy (POA: Yes) Migraine (POA: Unknown) Hypertension (POA: Unknown) Assessment ??Consuelo Darby is a 41 year old female who presented on 10/19 with Right MCA syndrome s/p TNK. CTA 1 M1 occlusion. S/P mechanical thrombectomy with R M1 recanalization and TICI2b. CT 10/20/22 with edema and mild shift. S/P decompressive right hemicraniectomy. Echo showed a mobile aortic valve vege tation. MRI brain with scattered cortical R hemisphere infarcts. ?? Stroke Type: Ischemic Stroke Mechanism: ESUS ?? Plan ? Neurological ?? R M1 ischemic stroke; active - s/p TICI2b revascularization, TNK - CTH, CTA H/N, MRI Brain, MRI H/N - Qday CTH - HbA1C: 6.0, LDL: 91, Cardiac Enzymes; wnl - NPO until passes swallow. TF - q1h vitals and neurological checks - SARAH, RF, factor V leiden, complement, protein c, s, lupus anticoagulant panel, repeat in 1 week - Rheumatology following - Cardiology following - CTS following - Follow blood cultures. If negative at 48 h will start heparin gtt - ID consult Core Measures TNK administration: yes Anti-thrombotic: holding in setting of edema, swelling Statin: atorvastatin 80mg DVT prophylaxis: Lovenox Swallow Evaluation: pending PT/OT Evaluation: pending Smoking cessation: N/A Migraine - verapamil 40 TID GENESIS - cont home amitriptyline Cardiovascular ? Vegetation on left coronary cusp (non-bacterial thrombotic endocarditis, infective endocarditis)vs fibroelastoma. - Cardiology on board - Hemodynamic monitoring - Follow blood cultures - CTS following ?? HTN: - home metop Blood Pressure Goals: SBP <160, map >70 Respiratory ? #AHRF - Potential extubation candidate per neuro ICU - Aspiration precautions - Elevate head of bed - Maintain oxygen saturation > 92% - Monitor for respiratory distress Gastrointestinal ? No acute issues ?? 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 No acute issues ?? - Monitor intake and output - Replete electrolytes as needed Hematology ? No acute issues ?? - Avoid unnecessary IM injections and arterial punctures during the first 24 hours post-tPA - Evaluate puncture sites for bleeding or hematoma - Evaluate emesis, secretions, stool, and urine for blood - No nasogastric tube insertions during the first 24 hours post-tPA - Transfuse for hemoglobin < 7.0 g/dL Endocrine ? Vit D deficiency - Vit D 2,000 U daily Infectious Disease ? Concern for vegetation on left coronary cusp ?? - ID consult. See details above Musculoskeletal ? No acute issues Disposition ? - PT/OT pending ?? Individual Modifiable Risk Factors Hypertension: no Hyperlipidemia: no Diabetes: no Atrial Fibrillation: no Tobacco: no ?? Vickie Muller MD Neurology Resident * Kelli Mcdonough RCP - 10/24/2022 2:08 PM CDT Pt extubated by ACC. Pt on 4L NC. * Sosa Degroot MD - 10/24/2022 1:51 PM CDT Images from the original note were not included. Vascular Neurology Fellow Plan of Care Note Consuelo Darby is a 41 year old woman presenting to [facility] for acute left sensorimotor deficits, left gaze palsy, dysarthria and headache. 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 IV TNKwas administred within 2 hrs of LKW, she underwent MT with TICI 2b recanalization. Now s/p R decompressive hemicrani on 10/20. Left AV cusp vegetation found on SARAH c/f fibroelastoma vs marantic vegetation vs IE.AC indicated in light of SARAH finding however pending completion of infectious workup and ID consult. MRI brain with scattered cortical R hemisphere infarcts. Stroke etiology: cardioembolic. Plan: - Anticoagulation if negative infectious workup - Cardiac CT - ID consult - Na goal 150 - 155 - SBP goal 140 - 160 - ICP monitoring NSGY following - maintain normothermic and euglycemic - PT/OT/SIGNALING PROJECT ENGINEER when stable Temp: [98.5 ??F (36.9 ??C)-100.2 ??F (37.9 ??C)] 98.9 ??F (37.2 ??C) Pulse: [85-140] 113 Resp: [16-34] 22 BP: (97-147)/(55-98) 147/94 O2 %: [30 %] 30 % Recent Labs Component Name 10/23/222028 WBC 17.4* Recent Labs Component Name 10/23/22202810/23/22 0129 10/21/22 2316 06/15/22 0757 12/09/18 0812 07/25/186 03/01/16 0817 SODIUM - - - - 138 135* 141 POTASSIUM 4.1 3.4* 3.7 - 3.8 3.8 3.6 CHLORIDE - - - - 102 103 110* CO2 23 25 20* - 24 21* 21* BUN 14 13 16 - 10 7 9 CREATININE 0.56 0.51* 0.65 - 0.82 0.93 0.60 EGFR >90 >90 >90 - >60 >60 >60 GLUCOSE 119* 132* 120* - 120* 105 83 CALCIUM 8.5 8.3* 8.0* - 9.4 9.2 8.1* - = values in this interval not displayed. Sosa Degroot MD, PhD Vascular and Interventional Neurology Fellow * Jackelyn Flores RN - 10/24/2022 10:49 AM CDT Problem: ELOPEMENT/ABDUCTION Goal: Risk for elopement &/or abduction during hospitalization is minimized Outcome: Progressing Problem: Safety related to restraint use Goal: Absence of injury while restrained Outcome: Progressing Problem: Fall Risk Goal: Fall risk and fall related injury risk are minimized (interventions related to the fall risk can be found in the flowsheet documentation) Outcome: Progressing Problem: Skin Integrity Goal: Skin integrity is maintained or improved Outcome: Progressing Problem: Pain/Discomfort Goal: Patient exhibits reduced pain/discomfort as evidenced by pain scores Outcome: Progressing Goal: Patient uses pharmacological and non-pharmacological pain management strategies. Outcome: Progressing Goal: Patient verbalizes acceptable level of pain relief and ability to engage in desired activity. Outcome: Progressing Problem: Neurological Deficit Goal: Neurological status is stable or improving Outcome: Progressing Problem: Hemodynamic Status/Cardiac Output Goal: Patient has stable vital signs and fluid balance Outcome: Progressing Problem: Oxygenation/Respiratory Function Goal: Respiratory rate/effort will be within specified limits Outcome: Progressing Problem: Mobility Goal: Patient's mobility/activity will be maintained as optimum level for age, diagnosis and physical limitations Outcome: Progressing Goal: Continuum of care needs are further met through referral to outpatient services when appropriate. Outcome: Progressing Goal: Patient reports the ability to perform Activities of Daily Living. Outcome: Progressing Problem: Communication Impairment/Dysarthria Goal: Ability to express needs and understand communication Outcome: Progressing Problem: Nutrition Goal: Nutritional status is improving Outcome: Progressing Problem: Aspiration Precautions Goal: Patient's risk of aspiration is minimized Outcome: Progressing Problem: Glycemic Control Goal: Clinical indication of glycemia balance is achieved Outcome: Progressing Problem: Knowledge Deficit,Education,Discharge Plan Goal: The patient/family will understand cerebrovascular disease and its symptoms, treatment and management Outcome: Progressing Problem: Oral Intake: Inadequate oral intake Goal: Total intake will meet estimated nutrient needs Outcome: Progressing Problem: Swallowing Goal: LTG - Patient will tolerate the least restrictive diet consistency to allow for safe consumption of daily meals Outcome: Progressing Problem: Transfers Goal: STG - Transfer from bed to chair Outcome: Progressing Problem: Risk for Violence: Self-Directed or Other Directed Description: Diagnosis: Risk for self-directed Violence or Risk for Directed Violence Risk Factors: Biochemical/neurologic imbalances, impulsivity, manic excitement, psychotic symptomatology, rage reaction, restlessness Possibly Evidenced By: agitated behaviors, delusional thinking, hallucinations, loud/threatening/profane speech, poor impulse control, provocative behaviors, verbal threats against others, verbal threats against self Goal: Patient will verbalize control of feelings. Outcome: Progressing Goal: Patient will respond to interventions when potential or actual loss of control occurs. Outcome: Progressing Goal: Patient will refrain from provoking others to physical harm. Outcome: Progressing Goal: Patient will display nonviolent behaviors toward others in the hospital, with the aid of medications and nursing interventions. Outcome: Progressing Goal: Patient will seek help when experiencing aggressive impulses. Outcome: Progressing Goal: Patient will refrain from verbal threats and loud, profrane language toward others. Outcome: Progressing Goal: Patient will be safe and free from injury. Outcome: Progressing * Paris Mohr MD - 10/24/2022 10:34 AM CDT Images from the original note were not included. Neurocritical Care Progress Note Consuelo Darby Age: [age] year old Date of : 1980 Date of Admission: 10/19/2022 Hospital Day: 5 Subjective History of Present Illness Consuelo Darby is a 41yo M who developed acute onset L sided weakness, L-sided sensory deficits, and dysarthria. L sided weakness resolved in route and dysarthria improved in route. On arrival patient noted to L gaze plasy, L hemainopsia, mild dysarthria, and extinction. NIHSS: 7. Patient was givenTNK and code IVR was activated. TICI2b revascularization of the R MCA M1 occlusion. 10/19: Cardene drip for maintaining SBP <140 post MT. 10/20: Taken for hemicrani with nsg. Intubated 10/21: Off levo, prop and fent. On Precedex. Tolerating PSV. 10/22: CTH showed increased edema but no MLS. ICPs wnl. Tolerating PSV well. 10/23: aortic valve mobile vegetation identified on SARAH. BCX ordered. Held off on heparin due to bleeding risk and awaiting blood cultures. ICPm removed. On PSV. Interval History: No acute events overnight. No worsening neuro exam. Has remained off of precedex Objective BP 114/67 Pulse 98 Temp 99.2 ??F (37.3 ??C) (Axillary) Resp 21 Ht 1.626 m (5' 4 ) Wt 95.3kg (210 lb) SpO2 97% Temp (30hrs) Max:100.2 ??F (37.9 ??C) Body mass index is 36.05 kg/m??. Exam - Neurologic Intubated Comprehension intact, communicates with thumbs up to answer yes and two fingers answer no. Pupils reactive bilaterally Cough and gag present Opens eyes to physical stimuli Moves RUE/RLE spont Follows commands on RUE/RLE LUE/LLE no movement noted, noxious deferred Con - afebrile Heent - carla on right side of head, soft scalp and MCA IRMA pulse present. S/p DHC Neck - no masses, trachea midline. ETT and NGT in place CV - no chest wall tenderness, tachycardia, no MGR. Regular rhythm. Normal S1 and S2 Pulm - normal respiratory effort, intubated Abd - soft, NTND, bowel sounds present Labs: Reviewed. Imaging: ECHO: ??? Left??Ventricle: Left ventricle size is normal. Normal wall thickness. Normal systolic functionwith a visually estimated EF of 60 - 65%. Normal wall motion. Normal diastolic function. ??? Normal RV size and systolic function. ??? No significant valvular abnormalities. ??? Bubble study negative for shunt. ??? Normal IVC and visualized portion of aorta. Hospital Problems on Admission: Right middle cerebral artery stroke (CMS/HCC) (POA: Unknown) Acute cerebrovascular accident (CVA) due to embolism of right middle cerebral artery (CMS/HCC) (POA: Yes) Nihss score 9 (POA: Yes) Received intravenous tissue plasminogen activator (tPA) in emergency department (POA: Yes) GERD (gastroesophageal reflux disease) (POA: Yes) Hemianopsia (POA: Yes) Weakness (POA: Yes) Left-sided sensory deficit present (POA: Yes) Gaze palsy (POA: Yes) Migraine (POA: Unknown) Hypertension (POA: Unknown) Assessment Consuelo Darby is a 41 year old female presenting with R gaze preference, L hemianopsia, L arm and leg hemiparesis, and L extinction. CTA with RMCA M1 occlsuion. S/P TNK and MT with TICI 2B recanalization. Admitted to neuroICU for post MT and post TNK monitoring. S/P DHC on 10/20 and remained intubated after procedure. Found to have mobile mass on aortic valve on SARAH. Differentials include infective endocarditis, non-infective endocarditis and fibroelastoma Plan Neurological ICP 12-21 LEONCIO drain 45cc R MCA M1 occlusion s/p MT with TICI 2B recanalization S/P TNK administration. 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 - MRI brain ordered Hx Migraines - On Amitriptyline 50 mg BID and verapamil 120 mg daily at home. Hold amitriptyline. Cardiovascular HR 75-133, BP Min: 95/52 Max: 174/91 Hx Hypertension - On Metoprolol 25 mg BID at home, resumed. Endocarditis, infective vs non-infective vs fibroelastoma - Mobile mass on aortic valve seen on SARAH - UDS negative on admission, denies IV drug use - Blood cultures obtained. If blood cultures result negative, will start heparin drip with likely aPTT goal 60-80 and no boluses. If blood cultures are positive, will start antibiotics. - Rheumatology consulted to evaluate for non-infective endocarditis - Sister with sjogrens and children with immunodeficiencies - SARAH and RF negative - ordered the following: - Anti Beta-2 glycoprotein Antibody IgA, IgG, IgM - Anti Cardiolipin Antibody IgA, IgG, IgM - Anti Phosphatidylserine Ab - CTS consulted for possible removal of vegetation. However, not a candidate at this time. - SBP goal < 160 No PRNs ordered at this time. Nursing staff told to call MD if consistently elevated blood pressures. Respiratory AHRF - Intubated after hemicrani on 10/20. - On spontaneous mode - Will re-evaluate if safe to extubate after and if heparin is started - Aspiration precautions - Elevate head of bed - Maintain oxygen saturation > 92% - Monitor for respiratory distress Renal/Electrolytes Intake/Output Summary (Last 24 hours) at 10/24/2022 1034 Last data filed at 10/24/2022 0600 Gross per 24 hour Intake 1105.41 ml Output -- Net 1105.41 ml Decreased UOP- improved - Increase TF to goal - Monitor intake and output Urinary retention - continue tamsulosin - straight cath with bladder US as needed Hypokalemia - Replete electrolytes as needed Infectious Disease Temp (24hrs), Av ??F (37.2 ??C), Min:98.5 ??F (36.9 ??C), Max:100.2 ??F (37.9 ??C) Leukocytosis, downtrending Likely reactive, no fever. No ABx - f/u blood cultures - Monitor for fevers - Ramirez culture if febrile Gastrointestinal Hx GERD - Lansoprozole 30 mg ordered. - Diet: Goal TF Vital 55cc/hr, FWF [id number] - GI ppx: Lansoprozole - Last BM: 10/22 - BM regimen: senna and miralax Endocrine Patient was taking oral contraceptive home medication. - A1c 6.0 - Accuchecks Hematology Recent Labs Component Name 10/23/222028 WBC 17.4* HGB 8.0* HCT 24.4* PLTCOUNT 310 No active issues DVT ppx: SCDs, Lovenox Hypercoaguable workup per stroke team. Musculoskeletal No active issues Disposition - PT/OT pending Feeds/Fluids: Tube Feeds Analgesia: fentanyl push Sedation: none Thromboprophylaxis: scd, lovenox HOB: HOB 30 degrees Ulcer Ppx: Lansozprozole 30 Glucose: wnl SBT: on PSV BR: senna and miralax Indwelling lines: 2 PIVs, drain, OGT, ETT De-escalation: ICU for at least 48 hours Family: father and updated at bedside Paris Mohr MD Neurology Resident. PGY-3 [facility]. Associated attestation - Shahbaz Bowen MD - 10/24/2022 3:55 PM CDT Examiner Attestation: Patient seen and examined. Resident note reviewed and discussed. I confirm the resident's documentation and findings except where revised on this note. Labs reviewed with team on rounds, see resident note for details Assessment and Plan: NEURO R MCA infarct s/p TNK and thrombectomy 10/23: ASA per stroke team. keep SBP <180, Cerebral edema on CT this AM stable, Vegetation on aortic side of aortic valve found on SARAH with workup and management below. No needs for osmolar therapyto control ICPs, but use hypertonic saline bolus for ICP > 22 for > 5mins. MRI brain to f/u on aneurysm on prior CTA. 10/24: No acute changes in neuro-exam, LEONCIO and drain removed by NSGY 10/23 in preparation for startingheparin. We will f/u NSGY regarding flap fullness. MRI today showing petechial hemorrhages in the Rinfarct distribution, Small areas of sub-acute infarct on the L side consistent with showering likely with initial event. RESP Acute resp failure, intubated due to changes in mental status prior to hemicraniectomy 10/23: reports of thick secretions, no infiltrate on CXR no fever. Will monitor if not worsening will proceed to extubation if continuing to meet criteria tomorrow. 10/24: RSBI 70s today, following commands, takes deep breath when asked. Extubated to ME CVS Aortic vegetation 10/23: Vegetation discovered differential includes bacterial vegetation, auto- immunue thrombus, or fibroelastoma, no signs of valve dysfunction, will send blood cultures. Cardiac CT to see if further information can be elucidated. f/u with rheum re further workup. 10/24: awaiting read on cardiac CT, holding on starting heparin per stroke team RENAL/ Urinary Retention 10/23: c/w bladder scan and straight cath 10/24: some spontaneous urination overnight (incontinence) but having to be straight cath'd this AM ENDO -monitor for stress Hyperglycemia GI Nutrition at risk 10/23: TF paused for SARAH procedure briefly. No reports of intolerance. Last BM on 10/22 on a bowel regimen. Will pause for a couple hrs prior to extubation. Had a brief discussion with mother and on high likelihood of needing a PEG for nutritional support 10/24: c/w TF will pause temporarily if extubating today HEME Anemia 10/23: Will monitor for signs/sites of bleeding (craniectomy site/groin access site), non so far. 10/24: Hgb stable from yesterday, no external signs of bleeding Anticoagulation for possible non bacterial endocarditis 10/23: starting heparin has risk of hemorrhagic conversion after her large CVA. After discussion stroke service will hold on starting AC until BCX return. 10/24: will start heparin if cx negative with a goal ptt of 60-80, no bolus ID WBC 10 on admission, then with what was likely Post procedure leukocytosis, now stable but elevatedwithout intervention. no fevers. 10/23: Send Blood cultures x2 10/24: Send Blood cultures x2 again. Stroke team consulting with ID to assist in decision to start abx The present set of clinical problems have a high likelihood of sudden deterioration associated withsignificant morbidity and involve high complexity decision making to frequently assess, manipulate,and support vital systems function. Discontinuation of therapies, or advanced physiological and clinical monitoring, poses a significant threat of prolonged morbidity or mortality. Critical Care 30-74 minutes: 40 mins (Time involved in the performance of separately billable procedures, teaching, or reviewing educational material was not counted towards critical care time.) Shahbaz Bowen MD 10/24/2022 11:38 AM * Emir Vail MD - 10/24/2022 7:58 AM CDT Images from the original note were not included. I have seen and examined the patient with the resident and I agree with the findings and plan of care as documented by the resident. Date of Service: 10/24/2022 Emir Vail MD Multidisciplinary rounds were held at 9am and the patient's care and recovery plan were reviewed and developed with the assembled team. Consuelo Darby is a 41 year old 41 year old??with GERD, tobacco, presented on 10/19 with Right MCA syndrome s/p TNK. CTA 1 M1 occlusion. S/P mechanical thrombectomy with R M1 recanalization and TICI2b. CT 10/20/22 with edema and mildshift. On exam, lid apraxia and following briskly on right; slight LLE movement. Hx of OCP use. S/Pdecompressive right hemicraniectomy. Echo showed a mobile aortic valve vegetation. Mechanism of infarct is this aortic valve vegetation of unknown etiology. Possibilities include autoimmune, aortic valve fibroelastoma, infectious. At this time, the etiology of the vegetation is unclear and we have incomplete information. Anticoagulation with heparin is reasonable although she has a sizable stroke and the risk of hemorrhage into this is present. Her CTA was reviewed with neuro-radiology. There is question of two small focal outpouchings of theleft A4 segment and left MCA. Although the vascular abnormalities present on CTA are more proximal and likely represent a small aneurysm, the possibility of a mycotic aneurysms cannot be excluded. Will place consult for ID evaluation and input regarding starting broad spectrum ABx pending 48 hour blood cultures. We will check blood cultures at 48 hours and if negative proceed with anticoagulation with heparin gtt. - Appreciate input consulting teams - Cardiac CT to further characterize the lesion P - Continue Close neurological monitoring. - Repeat CT at 0400 daily or if neurologic decline - On ASA The case and plan was discussed extensively with the family who agreed with the plan and verbalizedtheir understanding of the potential risks and benefits. Problem List Right middle cerebral artery stroke (CMS/HCC) (POA: Unknown) Acute cerebrovascular accident (CVA) due to embolism of right middle cerebral artery (CMS/HCC) (POA: Yes) Nihss score 9 (POA: Yes) Received intravenous tissue plasminogen activator (tPA) in emergency department (POA: Yes) GERD (gastroesophageal reflux disease) (POA: Yes) Hemianopsia (POA: Yes) Weakness (POA: Yes) Left-sided sensory deficit present (POA: Yes) Gaze palsy (POA: Yes) Migraine (POA: Unknown) Hypertension (POA: Unknown) See Resident note for the remaining problem specific plan. 5 MEDICATIONS FOR CURRENT ENCOUNTER: SCHEDULED MEDICATIONS: *Hold/Avoid Medication, Other, 0800 and 2000 *Hold/Avoid Medication, Other, DIRECTED 0.9% NaCl injection 3 mL, Intracatheter, q8h 0.9% NaCl injection 3 mL, Intracatheter, q8h artificial tears ophthalmic ointment, Each Eye, q8h aspirin chew tablet 81 mg, Enteral Tube, QDAY atorvastatin (Lipitor) tablet 80 mg, Enteral Tube, AT BEDTIME chlorhexidine (Peridex) 0.12 % oral solution 15 mL, Mouth/Throat, BID enoxaparin (Lovenox) injection 40 mg, Subcutaneous, QDAY guaiFENesin (Robitussin) solution 10 mL, Enteral Tube, q12h iopamidol (Isovue 370) 76 % contrast, Intravenous, Contrast - Once lansoprazole (Prevacid) suspension 30 mg, Enteral Tube, QDAY BEFORE BREAKFAST loratadine (Claritin) tablet 10 mg, Enteral Tube, QDAY metoprolol tartrate IR (Lopressor) tablet 25 mg, Enteral Tube, q12h polyethylene glycol 3350 (Miralax) packet 17 g, Enteral Tube, QDAY senna-docusate (Senokot-S) tablet 1 tablet, Enteral Tube, QDAY tamsulosin (Flomax) capsule 0.4 mg, Oral, QDAY verapamil (Isoptin) tablet 40 mg, Enteral Tube, q8h vitamin D3 (Cholecalciferol) 25 MCG (1000 UNITS) tablet 2,000 Units, Enteral Tube, QDAY [COMPLETED] potassium chloride (Klor-Con) packet 20 mEq, Enteral Tube, Once ?? [COMPLETED] potassium chloride (Klor-Con) packet 40 mEq, Enteral Tube, Once CONTINUOUS MEDICATIONS: ?? dexmedeTOMIDine (Precedex) 400 mcg in 100 mL NS infusion premix, Intravenous, Continuous PRN MEDICATIONS: Or 0.9% NaCl injection 1-10 mL, Intracatheter, PRN 0.9% NaCl injection 3 mL, Intracatheter, PRN dextrose 10 % IV bolus, Intravenous, PRN dextrose 10 % IV bolus, Intravenous, PRN fentaNYL (PF) (Sublimaze) injection 50 mcg, Intravenous, q2h PRN glucagon (Glucagen) injection 1 mg, Subcutaneous, PRN glucose (Diabetic Use) (Dex4 Glucose) oral liquid, Oral, PRN glucose (Diabetic Use) oral gel, Oral, PRN ?? glucose chew tablet 4 tablet, Oral, PRN Patient Vitals for the past 24 hrs: Temp Pulse Resp BP 10/24/22 0700 -- 98 23 134/79 10/24/22 0600 98.7 ??F (37.1 ??C) (!) 116 24 144/77 10/24/22 0500 -- 98 22 131/70 10/24/22 0446 -- 97 -- -- 10/24/22 0400 98.6 ??F (37 ??C) (!) 110 23 133/75 10/24/22 0300 -- (!) 123 19 142/85 10/24/22 0200 98.9 ??F (37.2 ??C) (!) 115 20 134/70 10/24/22 0100 -- 92 24 117/61 10/24/22 0008 -- 91 -- -- 10/24/22 0000 98.5 ??F (36.9 ??C) (!) 116 16 130/72 10/23/22 2300 -- (!) 112 20 97/80 10/23/22 2200 98.6 ??F (37 ??C) 105 21 110/70 10/23/222114 -- (!) 111 -- -- 10/23/222113 -- 106 -- 119/61 10/23/22 2100 -- 96 21 119/61 10/23/22 2000 98.7 ??F (37.1 ??C) (!) 120 20 136/68 10/23/22 1900 -- 100 20 115/56 10/23/22 1845 -- 104 24 114/69 10/23/22 1830 -- 99 21 117/60 10/23/22 1815 -- 108 (!) 34 120/60 10/23/22 1800 -- 98 21 110/60 10/23/22 1745 -- 97 21 110/59 10/23/22 1730 -- 98 18 113/59 10/23/22 1715 -- 93 19 111/60 10/23/22 1700 -- 90 18 104/59 10/23/22 1645 -- 89 19 101/55 10/23/22 1630 -- 97 19 106/57 10/23/22 1615 -- 95 20 100/58 10/23/22 1600 (!) 100.2 ??F (37.9 ??C) 101 20 107/56 10/23/22 1545 -- 101 21 112/63 10/23/22 1530 -- 105 19 125/58 10/23/22 1515 -- (!) 140 21 136/80 10/23/22 1430 -- 96 17 118/66 10/23/22 1415 -- 89 19 118/57 10/23/22 1400 -- 96 20 118/58 10/23/22 1345 -- 97 18 115/76 10/23/22 1330 -- 87 18 105/61 10/23/22 1315 -- 89 19 102/56 10/23/22 1300 -- 100 23 106/65 10/23/22 1245 -- 86 19 97/58 10/23/22 1230 -- 109 12 103/65 10/23/22 1215 -- 91 18 100/57 10/23/22 1200 99.4 ??F (37.4 ??C) 86 20 98/56 10/23/22 1156 -- 86 -- -- 10/23/22 1145 -- 95 19 107/64 10/23/22 1130 -- 89 20 -- 10/23/22 1115 -- 92 20 95/52 10/23/22 1100 -- 91 20 99/55 10/23/22 1045 -- 89 21 103/54 10/23/22 1030 -- 92 20 104/56 10/23/22 1015 -- 94 20 114/75 10/23/22 1000 -- 96 21 104/53 10/23/22 0945 -- 98 19 112/56 10/23/22 0930 -- (!) 112 15 125/67 10/23/22 0915 -- (!) 142 28 (!) 151/116 10/23/22 0900 -- 96 16 130/63 10/23/22 0845 -- 104 21 136/69 10/23/22 0830 -- 102 20 133/73 10/23/22 0829 -- 103 -- -- 10/23/22 0815 -- 102 21 130/68 10/23/22 0800 98.2 ??F (36.8 ??C) (!) 135 29 159/75 Recent Labs Component Name 10/23/22202810/23/22 01210/21/22 2316 NA 140 140 142 CL 110* 108* 111* CO2 23 25 20* BUN 14 13 16 CREATININE 0.56 0.51* 0.65 CALCIUM 8.5 8.3* 8.0* PHOS 3.1 3.4 2.7* Recent Labs Component Name 10/23/22202810/23/2212810/22/22 0153 10/21/22 2316 WBC 17.4* 16.7* - 18.4* RBC 2.58* 2.52* - 2.62* HGB 8.0* 7.8* - 8.1* HCT 24.4* 23.8* - 25.1* PLT - - 199 - Recent Labs Component Name 10/20/22 0302 06/15/22 0757 CHOL 173 204* TRIG 201* 251* HDL 42 37* LDLCALC 91 117* Recent Labs Component Name 10/20/22 1015 HGBA1C 6.0* EAG 126 Recent Labs Component Name 10/23/22202810/23/22 0129 10/21/22 0753 PLTCOUNT 310 265 259 * Consuelo Prado - 10/24/2022 7:39 AM CDT Images from the original note were not included. Neurocritical Care Progress Note Consuelo Darby Age: [age] year old Date of : 1980 Date of Admission: 10/19/2022 Hospital Day: 5 Subjective History of Present Illness Consuelo Darby is a 41 year old female who developed acute L sided weakness, L sided sensory deficits, and dysarthria. L sided weakness resolved in route and dysarthria improved in route. On arrival,R gaze palsy and L hemianopsia. NIHSS:7. Pt was given TNK. TICI2b revascularization of R MCA M1 occlusion.?? ICU Timeline: Admitted to NeuroICU for post TNK and thrombectomy monitoring.??Started on cardene drip for BP above goal of SBP<140??on 10/19 that was unable to be controlled with prn pushes.??Underwent R decompressive hemicraniectomy 10/20. ICP monitor and dura repair placed. Intubated. Interval History: Remains intubated on spont mode. LEONCIO and ICP monitor removed 10/23. Scalp was soft, pulse felt on L IRMA territory, pulse absent on L MCA territory. SARAH on 10/23 showed 6x7 independently mobile mass on left coronary cusp. Objective BP 134/79 Pulse 98 Temp 98.7 ??F (37.1 ??C) (Axillary) Resp 23 Ht 1.626 m (5' 4 ) Wt 95.3kg (210 lb) SpO2 98% Temp (30hrs) Max:100.2 ??F (37.9 ??C) Body mass index is 36.05 kg/m??. Exam - General Con - NAD, afebrile Heent - L scalp surgical site w/ carla, soft, pupils 3 mm bilaterally Neck - no masses, trachea midline CV - RRR, no chest wall tenderness Pulm - intubated Abd - soft, lower abdomen hematoma from femoral site is improving Exam - Neurologic Intubated Surgical site of hemicraniectomy is clean, dry, intact, soft to palpation Pupils 3 mm and reactive bilaterally Cough and gag reflex deferred Able to open eyes but not against force Able to move RUE and RLE spontaneously No movement of LUE and LLE spontaneously Gait Deferred Labs: Lab Results-Last 24 Hours Procedure Component Value Units Date/Time BETA-2 GLYCOPROTEIN 1 ANTIBODY IGG/IGM PANEL [[id number]] Collected: 10/23/222028 Order Status: Sent Specimen: Blood Updated: 10/23/222118 CARDIOLIPIN ANTIBODY IGA [[id number]] Collected: 10/23/222028 Order Status: Sent Specimen: Blood Updated: 10/23/222118 CARDIOLIPIN ANTIBODY IGG [[id number]] Collected: 10/23/222028 Order Status: Sent Specimen: Blood Updated: 10/23/222118 BETA-2 GLYCOPROTEIN 1 ANTIBODY IGA [[id number]] Collected: 10/23/222028 Order Status: Sent Specimen: Blood Updated: 10/23/222118 CARDIOLIPIN ANTIBODY IGM [[id number]] Collected: 10/23/222028 Order Status: Sent Specimen: Blood Updated: 10/23/222118 PHOSPHORUS BLOOD [[id number]] (Normal) Collected: 10/23/222028 Order Status: Completed Specimen: Blood Updated: 10/23/222113 Phosphorus 3.1 mg/dL MAGNESIUM BLOOD [[id number]] (Normal) Collected: 10/23/222028 Order Status: Completed Specimen: Blood Updated: 10/23/222113 Magnesium 2.1 mg/dL BASIC METABOLIC PANEL (CALCIUM TOTAL) [[id number]] (Abnormal) Collected: 10/23/222028 Order Status: Completed Specimen: Blood Updated: 10/23/222113 BUN 14 mg/dL Creatinine 0.56 mg/dL Sodium 140 mmol/L Potassium 4.1 mmol/L Chloride 110 mmol/L CO2 23 mmol/L Glucose 119 mg/dL Calcium 8.5 mg/dL Anion Gap 11 BUN/Creatinine Ratio 25 Osmolality Calculated 292 mOsm/kg eGFR by CKD-EPI >90 mL/min/1.73 m2 CBC W AUTO DIFFERENTIAL [[id number]] (Abnormal) Collected: 10/23/222028 Order Status: Completed Specimen: Blood Updated: 10/23/222109 WBC 17.4 10??3/uL RBC 2.58 10??6/uL Hemoglobin 8.0 g/dL Hematocrit 24.4 % MCV 94.6 fL MCH 31.0 pg MCHC 32.8 g/dL RDW-SD 46.7 fL RDW-CV 13.6 % Platelet Count 310 10??3/uL MPV 10.4 fL nRBC Absolute 0.03 10??3/uL nRBC Auto 0.2 /100 WBC Neutrophils % 69.8 % Lymphocytes % 19.2 % Monocytes % 8.8 % Eosinophils % 1.1 % Basophil % 0.2 % Neutrophils Absolute 12.14 10??3/uL Lymphocyte Absolute 3.33 10??3/uL Monocytes Absolute 1.52 10??3/uL Eosinophils Absolute 0.19 10??3/uL Basophils Absolute 0.04 10??3/uL Immature Granulocytes % 0.9 % Immature Granulocytes Absolute 0.15 LAB MISC TEST [[id number]] Collected: 10/23/222028 Order Status: Sent Specimen: Blood Updated: 10/23/222053 LUPUS ANTICOAGULANT PANEL [[id number]] Collected: 10/23/222028 Order Status: Sent Specimen: Blood Updated: 10/23/222042 GLUCOSE - POINT OF CARE [[id number]] Collected: 10/23/221756 Order Status: Completed Specimen: Blood Updated: 10/23/221757 Glucose WB/POC 105 mg/dL Specimen Type Cap Fingerstick ERYTHROCYTE SEDIMENTATION RATE [[id number]] (Abnormal) Collected: 10/23/22 1547 Order Status: Completed Specimen: Blood Updated: 10/23/22 1625 Erythrocyte Sedimentation Rate Westergren 55 MM/HR C-REACTIVE PROTEIN [[id number]] (Abnormal) Collected: 10/23/22 1547 Order Status: Completed Specimen: Blood Updated: 10/23/22 1619 C-Reactive Protein 12.1 mg/dL GLUCOSE - POINT OF CARE [[id number]] Collected: 10/23/22 1124 Order Status: Completed Specimen: Blood Updated: 10/23/22 1125 Glucose WB/POC 113 mg/dL Specimen Type Cap Fingerstick Imaging: CT HEAD WO CONTRAST Result Date: 10/23/2022 IMPRESSION: 1.Redemonstration of postsurgical changes of decompressive craniectomy and evolving right middle cerebral artery territory infarct. 2.No hemorrhagic transformation. 3.Extensive cytotoxic edema and mass effect with approximately 2 mm midline shift, [place] similar or slightly improved from prior. 4.Stable right intracranial pressure monitor. The report is dictated by Miranda Bowen MD(resident services coordinator) Jasper Ornelas MD have personally reviewed and interpreted this examination/study. > Interpreting Provider: Jasper Sifuentes MD on 10/23/2022 9:[address] HEAD WO CONTRAST Result Date: 10/22/2022 IMPRESSION: 1.Redemonstration of postsurgical changes of decompressive right hemicraniectomy for evolving right middle cerebral artery territory infarct. There is significant edema and mass effect with approximately 4 mm of midline shift, unchanged from prior. No evidence of new acute intracranial hemorrhage. > Interpreting Provider: Lonnie Rae MD on 10/22/2022 3:[address] HEAD WO CONTRAST Result Date: 10/22/2022 IMPRESSION: 1.Stable appearance of postsurgical changes of decompressive right hemicraniectomy for evolving right middle cerebral artery territory infarct. There is significant edema and mass effect with approximately 4 mm of midline shift, unchanged from prior. No evidence of new acute intracranial hemorrhage. Report dictated by Lorenzo Horta MD (nursing resident). Lonnie Ornelas MD have personally reviewed and interpreted this examination/study. > Interpreting Provider: Lonnie Rae MD on 10/22/2022 3:[address] HEAD WO CONTRAST Result Date: 10/20/2022 IMPRESSION: Interval postsurgical changes of decompressive right hemicraniectomy with ICP monitor and subdural drain in place. 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 > Dictated by Bassam Jovel M.D. (nursing resident) I, Gonzalez Velasco MD have personally reviewed and interpreted this examination/study. > Interpreting Provider: Gonzalez Velasco MD on 10/20/2022 11:[address] HEAD NON CONTRAST Result Date: 10/20/2022 IMPRESSION: Findings consistent with a large acute area of infarction in the right cerebral hemisphere in the distribution of the right middle cerebral artery with mass effect and approximately 4 mm of midline shift right to left. There is no definite hemorrhagic transformation. There is hyperdensity of the right middle cerebral artery likely representing thrombus. Clinical correlation and continued close interval follow-up are recommended. Results discussed with the stroke team physician, Dr. Stephanie Hester, on 20 October 2022 approximately 1225 hours. > Interpreting Provider: Joni Fabian MD on 10/20/2022 12:[address] ANGIO BRAIN NECK STROKE Result Date: 10/19/2022 IMPRESSION: 1. Occlusion of the distal M1 [...] Lonnie Rae MD on 10/19/2022 8:[address] BRAIN - Stroke Result Date: 10/19/2022 IMPRESSION: 1. No acute intracranial hemorrhage. 2. [...] Lonnie Rae MD on 10/19/2022 8:15 AM Hospital Problems on Admission: Right middle cerebral artery stroke (CMS/HCC) (POA: Unknown) Acute cerebrovascular accident (CVA) due to embolism of right middle cerebral artery (CMS/HCC) (POA: Yes) Nihss score 9 (POA: Yes) Received intravenous tissue plasminogen activator (tPA) in emergency department (POA: Yes) GERD (gastroesophageal reflux disease) (POA: Yes) Hemianopsia (POA: Yes) Weakness (POA: Yes) Left-sided sensory deficit present (POA: Yes) Gaze palsy (POA: Yes) Migraine (POA: Unknown) Hypertension (POA: Unknown) Assessment Consuelo Darby is a 41 year old female presenting for R sided gaze preference, L hemianopsia, L arm and L leg hemiparesis, and L extinction. CTA showed RMCA M1 occlusion. S/P TNK and MT with TICI 2B recanalization. S/P right decompressive hemicraniectomy. SARAH showed vegetation on aortic side of Lcoronary cusp. Possible differentials include infective endocarditis, nonbacterial thrombotic endocarditis, and fibroelastoma. One differential is infective endocarditis. Workup with Barlow's criteria. No pathology collected of vegetation. Blood cultures x3 sent with pending results. If positive, will meet a major clinical criteria. No known predisposing heart condition, afebrile, workup for vascular phenomena being done with MRI for possible mycotic aneurysm. Another differential is nonbacterial thrombotic endocarditis. Workup has included SARAH which has been negative, noncontributory protein C and S. Pending lupus anticoag, cardiolipin, beta 2 glucoprotein antibodies. Family history of Sjogren in sister, daughter with celiac, children with immunodeficiency. Another differential is fibroelastoma due to pedunculated structure on aortic valve. Diagnosis would need to be done by microscopy. Plan Neurological EVD open at 0: drained ICP: CPP: # R MCA syndrome S/P TNK, mechanical thrombectomy, decompressive R hemicraniectomy Workup: - MRI pending - Stat CT head for any change in neurological examination Plan: - Neurological checks q1 - Aspirin 81 QDAY started 10/22 - Statin 80 mg - Head of bed > 30?? - Avoid hypoglycemia, hyponatremia, and hyperthermia Cardiovascular Pulse Min: 75 Max: 147, BP Min: 95/52 Max: 174/91 # 6x7 mm independently mobile mass on aortic side of L coronary cusp - Blood pressure goal: SBP<180, map>70 - PRN hydralazine IV and labetalol IV for SBP > 180 Respiratory # acute respiratory faillure, intubated - Aspiration precautions - started on Robitussin on 10/23 - Elevate head of bed - Maintain oxygen saturation > 92% - Monitor for respiratory distress Renal/Electrolytes Intake/Output Summary (Last 24 hours) at 10/24/2022 0739 Last data filed at 10/24/2022 0600 Gross per 24 hour Intake 1128.79 ml Output -- Net 1128.79 ml # urinary retention - bladder scans, straight cath - Monitor intake and output - Replete electrolytes as needed Infectious Disease Temp (24hrs), Av.9 ??F (37.2 ??C), Min:98.2 ??F (36.8 ??C), Max:100.2 ??F (37.9 ??C) No active issues - Monitor for fevers - Blood culture results pending, 3rd culture ordered - Ramirez culture if febrile Gastrointestinal # Hx of GERD - 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: when stable - Diet: NG tube - GI ppx: Prevacid - Last BM: 10/22 - BM regimen: senna, miralax Endocrine No active issues - f/u A1C - Accuchecks + SSI Hematology Recent Labs Component Name 10/23/222028 WBC 17.4* HGB 8.0* HCT 24.4* PLTCOUNT 310 #Leukocytosis - continue to monitor, likely reactive to post sonya # Normocytic anemia - 8.0 from 7.8 yesterday - transfuse if Hgb < 7 DVT ppx: Lovenox started on 10/22, SCD Workup for hypercoagulabilities: SARAH negative, noncontributory protein C and S - pending lupus anticoag, cardiolipin, beta 2 glucoprotein antibodies Musculoskeletal No active issues Disposition - PT/OT pending Feeds/Fluids: NG tube Analgesia: fentanyl PRN, tylenol PRN Sedation: Precedex d/c Thromboprophylaxis: Lovenox, SCDs in place HOB: >30 degrees Ulcer Ppx: Prevacid 30 Glucose: wnl SBT: PSV BR: senna, miralax Indwelling lines: 2 PIVs, drain, NG tube, ETT De-escalation: continue in ICU Family: family updated at bedside Cordero Kyle Prado Medical Student, MS3 [facility]. Associated attestation - Shahbaz Bowen MD - 10/24/2022 11:48 AM CDT Patient seen and examined with team on rounds on 10/24. [address] Mohr's note and my attestation for today's plans * Shauna Martines RN - 10/24/2022 7:33 AM CDT Problem: Safety related to restraint use Goal: Absence of injury while restrained Outcome: Progressing Problem: Fall Risk Goal: Fall risk and fall related injury risk are minimized (interventions related to the fall risk can be found in the flowsheet documentation) Outcome: Progressing Problem: Skin Integrity Goal: Skin integrity is maintained or improved Outcome: Progressing Problem: Pain/Discomfort Goal: Patient exhibits reduced pain/discomfort as evidenced by pain scores Outcome: Progressing Goal: Patient uses pharmacological and non-pharmacological pain management strategies. Outcome: Progressing Problem: Neurological Deficit Goal: Neurological status is stable or improving Outcome: Progressing Problem: Hemodynamic Status/Cardiac Output Goal: Patient has stable vital signs and fluid balance Outcome: Progressing Problem: Oxygenation/Respiratory Function Goal: Respiratory rate/effort will be within specified limits Outcome: Progressing Problem: Mobility Goal: Patient's mobility/activity will be maintained as optimum level for age, diagnosis and physical limitations Outcome: Progressing * Ananth Llanos MD - 10/24/2022 7:28 AM CDT CARDIOLOGY PROGRESS NOTE Patient: Consuelo Darby Age: [age] year old Date of : 1980 Date of Admission: 10/19/2022 Date: 10/24/2022 INTERVAL HISTORY: Patient is off sedation and able to follow simple commands. Patient remains intubated. Patient had one time temp of 100.2 yesterday. Her BC are pending. 10/25: Patient is off sedation and extubated. Able to follow simple commands. ADMITTING HISTORY: It was my pleasure to see . Consuelo Darby in consultation at [facility] on 10/23/2022 for evaluation of vegetation that was seen on SARAH. She is a pleasant 41 year old female with a history of HTN, Migraines, GERD, colonic polyps, got admitted to the hospital for acute onsetof left sided weakness, sensory deficits and dysarthria. She was noted to R MCA occlusion s/p TNK administration, mechanical thrombectomy with R M1 recanalization that was followed by decompressive right hemicraniectomy after CT from 10/20/22 showed edema and midline shift. Cardiology was consulted after SARAH showed Vegetation on non coronary cusp. This was corrected from previous note mentioning left coronary cusp Patient was sedated and intubated at the time of this encounter so history was obtained from chart review and patient's and mother. 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 Patient was found lying on the floor by her and she had left sided weakness and dysarthria. Patient has no known Cardiac history. She is very active and had not reported any anginal symptoms previously. Patient doesn't have any personal history of abortions, miscarriages or diagnosis of an autoimmune condition other than HELLP syndrome during her first in 2006. Patient's sister carried diagnosis of Sjogren syndrome. They denied any family history of cancers. ?? Patients family denied Consuelo reporting any symptoms of fever, chills, cough, joint pains, rash or unusual fatigue in last several months. ?? PAST MEDICAL HISTORY: HTN, migraines, GERD, HELLP syndrome with 1st in 2006 and colonic polyps ?? PAST SURGICAL HISTORY: Her has a past surgical history that includes section; colonoscopy;cholecystectomy, laparoscopic (02/22/2012); cholecystectomy; section (03/01/2016); colonoscopy (N/A, 08/25/2021); and colonoscopy with polypectomy (N/A, 08/25/2021). ?? FAMILY HISTORY: Her family history includes Cancer in her maternal grandfather; Diabetes in her maternal grandfather and maternal grandmother; Hypertension in her mother; Thyroid Disease in her mother. She She indicated that the status of her mother is unknown. She indicated that the status of her maternal grandmother is unknown. She indicated that the status of her maternal grandfather is unknown. ? 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 amitriptyline (Elavil) 50 MG tablet Take 2 (two) tablets by mouth at bedtime ??? Cetirizine HCl (ZYRTEC PO) Take 10 mg by mouth once daily ??? levonorgestrel-ethinyl estradiol (LESSINA-28) 0.1-20 MG-MCG tablet TAKE 1 TABLET BY MOUTH EVERYDAY FOR CONTROL Reasons: Control Treatment 84 tablet 4 ??? metoprolol tartrate IR (Lopressor) 25 MG tablet Take 1 (one) tablet by mouth 2 times daily ??? omeprazole (PriLOSEC) 20 MG capsule Take 20 mg by mouth daily before breakfast ??? verapamil SR 24hr (Verelan) 120 MG capsule Take 1 (one) capsule by mouth at bedtime ??? Vitamin D3, cholecalciferol, 50 MCG (2000 UT) tablet Take 2,000 Units by mouth once daily CURRENT MEDICATIONS: ??? *Hold/Avoid Medication Other DIRECTED ??? *Hold/Avoid Medication Other 0800 and 2000 ??? 0.9% NaCl 3 mL Intracatheter q8h ??? 0.9% NaCl 3 mL Intracatheter q8h ??? artificial tears Each Eye q8h ??? aspirin 81 mg Enteral Tube QDAY ??? atorvastatin 80 mg Enteral Tube AT BEDTIME ??? chlorhexidine 15 mL Mouth/Throat BID ??? enoxaparin 40 mg Subcutaneous QDAY ??? guaiFENesin 10 mL Enteral Tube q12h ??? iopamidol Intravenous Contrast - Once ??? lansoprazole 30 mg Enteral Tube QDAY BEFORE BREAKFAST ??? loratadine 10 mg Enteral Tube QDAY ??? metoprolol tartrate IR 25 mg Enteral Tube q12h ??? polyethylene glycol 3350 17 g Enteral Tube QDAY ??? senna-docusate 1 tablet Enteral Tube QDAY ??? tamsulosin 0.4 mg Oral QDAY ??? verapamil 40 mg Enteral Tube q8h ??? Vitamin D3 (cholecalciferol) 2,000 Units Enteral Tube QDAY dexmedeTOMIDine, 0-1.5 mcg/kg/hr, Last Rate: Stopped (10/23/22 1402) ?? REVIEW OF SYSTEMS: Review of Systems: Complete ROS not completed as patient was sedated and intubated at the time of encounter ?? PHYSICAL EXAM: General appearance: able to follow simple commands HEENT: [place] noted in the scalp Neck: The thyroid is not enlarged and is symmetric, without tenderness, masses or nodules. Chest: Clear to auscultation bilaterally. No wheeze/rhonchi, rales Heart: regular rhythm but tachycardic. S1, S2 normal. No murmurs, rubs or gallops. There is no jugular venous distension noted. Abdomen: Soft, non-tender, non-distended. No palpable masses. Bowel sounds audible on auscultation Extremities: No edema in lower extremities bilaterally. Pulses: 2+ radial and dorsalis pedis pulses bilaterally Intake/Output Summary (Last 24 hours) at 10/24/2022 0728 Last data filed at 10/24/2022 0600 Gross per 24 hour Intake 1128.79 ml Output -- Net 1128.79 ml Temp: [98.2 ??F (36.8 ??C)-100.2 ??F (37.9 ??C)] 98.7 ??F (37.1 ??C) Pulse: [86-142] 116 Resp: [12-34] 23 BP: (95-159)/(52-116) 144/77 O2 %: [30 %] 30 % BP 144/77 Pulse (!) 116 Temp 98.7 ??F (37.1 ??C) (Axillary) Resp 23 Ht 1.626 m (5' 4 ) Wt95.3 kg (210 lb) SpO2 98% DATA REVIEWED: LABS: CBC: Recent Labs Component Name 10/23/22202810/23/22 0129 10/22/22 0153 10/21/22 2316 WBC 17.4* 16.7* - 18.4* HGB 8.0* 7.8* - 8.1* HCT 24.4* 23.8* - 25.1* MCV 94.6 94.4 - 95.8 PLT - - 199 - Coagulation Panel: Recent Labs Component Name 10/20/22 0302 10/19/22 0824 10/19/22 0809 PT 13.6 12.3 - INR 1.1 0.9 0.9 PTT 24.4 - - BMP: Recent Labs Component Name 10/23/22202810/23/22 0129 10/21/22 2316 NA 140 140 142 CL 110* 108* 111* CO2 23 25 20* BUN 14 13 16 CREATININE 0.56 0.51* 0.65 CALCIUM 8.5 8.3* 8.0* No results for input(s): MG in the last 09270 hours. Recent Labs Component Name 10/23/22202810/23/2212810/21/22 231 PHOS 3.1 3.4 2.7* Hepatic Panel: Recent Labs Component Name 10/19/22 0824 06/15/22 0757 12/09/18 0812 AST 19 17 18 ALT 16 9 17 ALKPHOS 52 44 56 TBILI 0.1* 0.1* - ALB 3.5 3.6 - ABG: Recent Labs Component Name 10/21/22 0801 10/20/22 2246 10/20/22 1936 PH 7.40 7.36 7.36 PCO2 31* 32* 36 PO2 143* 179* 180* Cardiac Enzymes: No results for input(s): CKTOTAL, CKMB, TROPONINI in the last 34679 hours. Invalid input(s): CKMBINDEX Lipid Panel: Recent Labs Component Name 10/20/22 030 LDLCALC 91 HDL 42 Cardiac Enzymes: Troponin x 2: Negative (<3) ?? Lipid Panel: Recent Labs Component Name 10/20/22301 LDLCALC 91 HDL 42 ?? A1c: 6.0 ? Other labs: 1. Protein S activity: 134 2. Protein C activity: 150 3. LA- phospholipid: 33.2 seconds 4. SARAH: negative 5. RF: negative 6. Tissue transglutaminase: negative 7. C3: with in normal range 8. Lupus anticoagulant: negative 9. Toxicology screen: negative 10. ESR: 55 ?? Immunoassay measurements of anti-cardiolipin and anti-beta-2 glycoprotein 1 are recommended if the DRVVT, and STACLOT-LA tests are negative ?? IMAGIN. Cardiac CT: There is a 6 mm lesion involving the noncoronary cusp of the aortic valve, favored to represent a vegetation rather than a fibrosed hemangioma. Patent coronary vessels within the limitation of the motion artifact. 2. MRI Brain - 10/24/22: Redemonstration of postoperative changes of a right hemicraniectomy 2.Redemonstration of evolving large right MCA territory infarction with extensive cytotoxic edema and mild external herniation of the brain through the craniectomy defect. Persistent local mass effect on theright cerebral hemisphere, effacement of the right lateral ventricle, and approximately 3-4 mm [id number] midline shift, grossly similar to the prior. Mild dilation of the left lateral ventricle may represent subtle left ventricular entrapment, overall grossly similar to prior. Additional multiple foci of abnormal diffusion within the left frontotemporal lobes with associated T2 FLAIR hyperintensity representing additional small acute to subacute infarcts, likely of cardioembolic etiology. ?? ECG: - Sinus tachycardia without any changes concerning for ischemia ?? ECHO: ?? TTE: 10/20/22: ?Left??Ventricle: Left ventricle size is normal. Normal wall thickness. Normal systolic function with a visually estimated EF of 60 - 65%. Normal wall motion. Normal diastolic function. ?Normal RV size and systolic function. ?No significant valvular abnormalities. ?Bubble study negative for shunt. ?Normal IVC and visualized portion of aorta ?? SARAH: 10/20/22: ?Aortic??Valve: Valve structure is normal. There is a 6 x 7 mm independently mobile mass on the left coronary cusp. Differential includes vegetation ?Left??Atrium: No right to left intracardiac or extracardiac shunt present viewable with agitated saline, color Doppler and Valsalva maneuver. Normal sized appendage. Normal appendage flow velocity. No thrombus present in the left atrial appendage (MADELEINE). ?Left??Ventricle: Left ventricle size is normal. Hyperdynamic systolic function with a visually estimated EF of 75 - 80%. ?No hemodynamically significant valvular abnormality. ? CARDIAC STRESS TEST: None on file ?? HEART CATHETERIZATION: None on file ?? ASSESSMENT: # Aortic vegetation # R MCA infarct s/p TNK and thrombectomy # S/p Right hemicraniectomy In summary, she is a 41 year old female with a history of HTN, Migraines, GERD, colonic polyps admitted to [facility] for acute onset of left sided weakness, sensory deficits and dysarthria that started last .She was noted to have R MCA occlusion. Patient had TNK administration with no improvement for whichshe underwent mechanical thrombectomy with recanalization. Per Neuro team, this thrombectomy was dif ficult than usual. Patient later underwent decompressive right hemicraniectomy after CT from 10/20/22 showed edema and midline shift. Cardiology was consulted after SARAH showed Vegetation on the aorticvalve. ?? After reviewing the images, this vegetation/mass has a pedunculated structure and it measures 6 x 7mm in size. Differentials for this kind of vegetation in a young female include Infective endocarditis, non bacterial thrombotic endocarditis and fibroelastoma. ?? With respect to infectious cause, patient had no febrile symptoms prior to the incident per family,no known drug use history (negative toxicology screen) and patient also remained afebrile in the hospital without significant leukocytosis. This seems less likely in her case however given IE being the most common cause of vegetations, we should obtain complete infectious work up including 3 sets of blood cultures. Preliminary BC so far have been negative. ?? Fibroelastoma: It would be again very hard to say unless there we can see this under the microscopebut definitely a possibility. ?? Non bacterial thrombotic endocarditis/ Libman: Given her young age, family history of Sjogren (autoimmune) condition in her sister, a complete hypercoagulable and autoimmune work up should be obtained checking for conditions like SLE, antiphospholipid syndrome etc. Initial work up including SARAH, lupus anticoagulant, RF and other so far has come back negative. Cardiac CT shows a 6 mm lesion involving the noncoronary cusp of the aortic valve however this still doesn't help us differentiate the type of lesion. ?? PLAN: ?? - This vegetation could be hard to say if this is infectious vs non bacterial thrombotic vs Fibroelastoma. Best plan would be to complete infectious work up with 3 sets of blood cultures and do a complete hypercoagulable and autoimmune work up. Initial work up including SARAH, lupus anticoagulant, RFand other so far has come back negative. - Preliminary BC so far negative. Rheumatology & ID on board as well. - Start Heparin drip when able to optimize the further risk of developing another stroke. This was discussed with Neuro team who agreed as well since the risk of hemorrhagic conversion is high after a large stroke. Per neurosurgery note: no heparin bolus. ?? - Please involve CTS for possible extraction of this vegetation. ?? - Cardiology will follow with you ?? Thank you for your consultation and please do not hesitate to contact us with any question or concern. ? Ananth Llanos MD Resident - Cardiology Associated attestation - Tierney Laws MD - 10/25/2022 3:07 PM CDT ATTENDING ATTESTATION NOTE I have seen and examined the patient with the resident and I agree with the findings and plan of care as documented by the resident. More awake today. On exam, no murmurs. Blood cultures thus far negative. Rheum work up also thus far negative. Aortic valve mobile mass, aortic side Bacterial vs non-bacterial endocarditis vs fibroelastoma Acute CVA Post lysis and mechanical thrombectomy If cultures remains negative, consider anticoagulation to additional stroke prevention. 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 CT also showed AV vegetation. CTS consult for ultimate removal; likely will need recovery prior to ability to undergo bypass/cardiac surgery. Rest of plan as per the resident note. Date of Service: 10/25/22 Tierney Laws MD * Jarvis Gagnon MD - 10/24/2022 7:07 AM CDT Neurosurgery Daily Progress Note Consuelo Darby 10/24/22 Hospital Day: 5 Subjective: Remains intubated on spont mode. Rheumatology and Cardiology consulted due to concern for thrombotic endocarditis. LEONCIO and ICP monitor was removed yesterday, scalp flap full/tense this am. Objective: T: 98.7 ??F (37.1 ??C) [Temp Min: 98.2 ??F (36.8 ??C) Max: 100.2 ??F (37.9 ??C)] BP: 144/77[BP Min: 95/52 Max: 159/75] MAP: 95[MAP (mmHg) Min: 68 Max: 125] HR: (!) 116[Pulse Min: 86 Max: 142] RR: 24[Resp Min: 12 Max: 34] Sat: 100 %[SpO2 Min: 91 % Max: 100 %] Input/Output: 10/23 0701 - 10/24 0700 In: 172.8 [I.V.:97.8] Out: - Respiratory: ETT PEEP/CPAP: 5 cm H20 Pressure Support: 5 cm H2O OBSERVED PEAK INSPIRATORY PRESSURE (cm H2O): 13 cm H2O SET TIDAL VOLUME (mL): 450 ML Spontaneous Tidal Volume (mL): 389 ML EXHALED TIDAL VOLUME (ml): 371 ml Labs: Recent Labs Component Name 10/23/222028 WBC 17.4* HGB 8.0* HCT 24.4* PLTCOUNT 310 Recent Labs Component Name 10/23/222028 NA 140 POTASSIUM 4.1 CO2 23 BUN 14 CREATININE 0.56 CALCIUM 8.5 GLUCOSE 119* Recent Labs Component Name 10/20/22 0302 INR 1.1 PTT 24.4 Imaging: CT head wo contrast 10/20/2022 Interval postsurgical changes of decompressive right hemicraniectomy with ICP monitor and subdural drain in place. 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 CT head wo contrast 10/23/2022 1.Redemonstration of postsurgical changes of decompressive craniectomy and evolving right middle cerebral artery territory infarct. 2.No hemorrhagic transformation. 3.Extensive cytotoxic edema and mass effect with approximately 2 mm midline shift, [place] similar or slightly improved from prior. 4.Stable right intracranial pressure monitor. Diet: DIET NPO Except: NO EXCEPTIONS DIET TUBE FEEDING CONTINUOUS MEDICATIONS FOR CURRENT ENCOUNTER: SCHEDULED MEDICATIONS: *Hold/Avoid Medication, Other, 0800 and 2000 *Hold/Avoid Medication, Other, DIRECTED 0.9% NaCl injection 3 mL, Intracatheter, q8h 0.9% NaCl injection 3 mL, Intracatheter, q8h artificial tears ophthalmic ointment, Each Eye, q8h aspirin chew tablet 81 mg, Enteral Tube, QDAY atorvastatin (Lipitor) tablet 80 mg, Enteral Tube, AT BEDTIME chlorhexidine (Peridex) 0.12 % oral solution 15 mL, Mouth/Throat, BID enoxaparin (Lovenox) injection 40 mg, Subcutaneous, QDAY guaiFENesin (Robitussin) solution 10 mL, Enteral Tube, q12h iopamidol (Isovue 370) 76 % contrast, Intravenous, Contrast - Once lansoprazole (Prevacid) suspension 30 mg, Enteral Tube, QDAY BEFORE BREAKFAST loratadine (Claritin) tablet 10 mg, Enteral Tube, QDAY metoprolol tartrate IR (Lopressor) tablet 25 mg, Enteral Tube, q12h polyethylene glycol 3350 (Miralax) packet 17 g, Enteral Tube, QDAY senna-docusate (Senokot-S) tablet 1 tablet, Enteral Tube, QDAY tamsulosin (Flomax) capsule 0.4 mg, Oral, QDAY verapamil (Isoptin) tablet 40 mg, Enteral Tube, q8h vitamin D3 (Cholecalciferol) 25 MCG (1000 UNITS) tablet 2,000 Units, Enteral Tube, QDAY [COMPLETED] potassium chloride (Klor-Con) packet 20 mEq, Enteral Tube, Once ?? [COMPLETED] potassium chloride (Klor-Con) packet 40 mEq, Enteral Tube, Once CONTINUOUS MEDICATIONS: ?? dexmedeTOMIDine (Precedex) 400 mcg in 100 mL NS infusion premix, Intravenous, Continuous PRN MEDICATIONS: Or 0.9% NaCl injection 1-10 mL, Intracatheter, PRN 0.9% NaCl injection 3 mL, Intracatheter, PRN dextrose 10 % IV bolus, Intravenous, PRN dextrose 10 % IV bolus, Intravenous, PRN fentaNYL (PF) (Sublimaze) injection 50 mcg, Intravenous, q2h PRN glucagon (Glucagen) injection 1 mg, Subcutaneous, PRN glucose (Diabetic Use) (Dex4 Glucose) oral liquid, Oral, PRN glucose (Diabetic Use) oral gel, Oral, PRN ?? glucose chew tablet 4 tablet, Oral, PRN HEENT: Incision CDI with carla in place, scalp flap is full/tense - right periorbital swelling Neuro: Intubated, spontaneous eye opening, right gaze preference, right UE and LE moving spontaneously with good strength against resistance, left sided hemiparesis 1/5, sensation intact to noxious stimulation Assessment: 41 year old female with PMHx of GERD, tobacco use who presented on 10/19 with left sided weakness (NIHSS:7) secondary to right MCA territory infarct. CT angiogram of the brain right MCA M1 occlusion s/p mechanical thrombectomy with R M1 recanalization and TICI2b. CT 10/20/22 with worsening edema and midline shift resulting in progression to malignant MCA infarction now s/p right decompressive hemicraniectomy and ICPm insertion 10/[address] Marquez. Following the operation, she was transferred intubated to the ICU for close monitoring. ICPm and LEONCIO were removed 10/23. 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 Plan: Serial neuro checks q1hr,??HOB >??30 BP parameters per neuro ICU team, avoid hypertension Keep INR??<??1.3, PLts >100.000 Regular wound care, monitor for drainage/dehiscence Ok for ASA 81mg daily as needed per primary team Ok for therapeutic heparin gtt as needed per cardiology No heparin bolus, PTT goal 70 to [address] wo contrast once PTT therapeutic Stat head CT with any changes in neurologic exams Contact our service immediately with any changes in neurological examination or VS instability Overall care per neurology ICU team, neurosurgery to follow along Jarvis Gagnon MD 7:09 AM 10/24/22 * Vickie Muller MD - 10/23/2022 3:51 PM CDT Stroke Service Daily Progress Note Consuelo Darby Age: [age] year old Date of : 1980 Date of Admission: 10/19/2022 Hospital Day: 4 Subjective Consuelo Darby is a 41yo M who developed acute onset L sided weakness, L-sided sensory deficits, and dysarthria. L sided weakness resolved in route and dysarthria improved in route. On arrival patient noted to hae L gaze plasy, L hemainopsia, mild dysarthria, and extinction. NIHSS: 7. Patient was given TNK and code IVR was activated. TICI2b revascularization of the R MCA M1 occlusion. Admitted to ICU for post- thrombectomy monitoring. Repeat CTH showing edema in R MCA territory. On 10/20/22 patient taken for hemicraniectomy, post-op CTH showing stable midline shift. Initial hypercoag work up negative, repeat in [address], QDay CTH. NSGY following. CTH 10/22 showing large R MCA infarct, minimal midline shift. Starting lovenox. ?? Medical history significant for hemiplegic migraine, GERD, GENESIS. ?? Interval History: SARAH showed large vegetations on aortic side of L coronary cusp. Objective Patient Vitals for the past 24 hrs: BP Temp Temp src Pulse Resp SpO2 10/23/22 1615 100/58 -- -- 95 20 99 % 10/23/22 1600 107/56 (!) 100.2 ??F (37.9 ??C) Axillary 101 20 99 % 10/23/22 1545 112/63 -- -- 101 21 100 % 10/23/22 1530 125/58 -- -- 105 19 99 % 10/23/22 1515 136/80 -- -- (!) 140 21 98 % 10/23/22 1430 118/66 -- -- 96 17 99 % 10/23/22 1415 118/57 -- -- 89 19 98 % 10/23/22 1400 118/58 -- -- 96 20 97 % 10/23/22 1345 115/76 -- -- 97 18 98 % 10/23/22 1330 105/61 -- -- 87 18 100 % 10/23/22 1315 102/56 -- -- 89 19 99 % 10/23/22 1300 106/65 -- -- 100 23 98 % 10/23/22 1245 97/58 -- -- 86 19 98 % 10/23/22 1230 103/65 -- -- 109 12 99 % 10/23/22 1215 100/57 -- -- 91 18 99 % 10/23/22 1200 98/56 99.4 ??F (37.4 ??C) Axillary 86 20 99 % 10/23/22 1156 -- -- -- 86 -- 99 % 10/23/22 1145 107/64 -- -- 95 19 99 % 10/23/22 1130 -- -- -- 89 20 99 % 10/23/22 1115 95/52 -- -- 92 20 99 % 10/23/22 1100 99/55 -- -- 91 20 99 % 10/23/22 1045 103/54 -- -- 89 21 98 % 10/23/22 1030 104/56 -- -- 92 20 97 % 10/23/22 1015 114/75 -- -- 94 20 97 % 10/23/22 1000 104/53 -- -- 96 21 97 % 10/23/22 0945 112/56 -- -- 98 19 98 % 10/23/22 0930 125/67 -- -- (!) 112 15 98 % 10/23/22 0915 (!) 151/116 -- -- (!) 142 28 97 % 10/23/22 0900 130/63 -- -- 96 16 98 % 10/23/22 0845 136/69 -- -- 104 21 98 % 10/23/22 0830 133/73 -- -- 102 20 98 % 10/23/22 0829 -- -- -- 103 -- 98 % 10/23/22 0815 130/68 -- -- 102 21 98 % 10/23/22 0800 159/75 98.2 ??F (36.8 ??C) Axillary (!) 135 29 91 % 10/23/22 0745 142/78 -- -- 96 20 98 % 10/23/22 0730 144/70 -- -- 92 20 98 % 10/23/22 0715 146/72 -- -- 93 19 98 % 10/23/22 0700 146/79 -- -- 93 20 98 % 10/23/22 0600 136/75 98.4 ??F (36.9 ??C) Axillary 100 22 98 % 10/23/22 0500 150/78 -- -- 109 13 99 % 10/23/22 0414 -- -- -- 97 -- 98 % 10/23/22 0400 138/72 98.9 ??F (37.2 ??C) Axillary 91 20 99 % 10/23/22 0300 139/67 -- -- 93 20 97 % 10/23/22 0200 138/68 99.2 ??F (37.3 ??C) Axillary 90 15 99 % 10/23/22 0100 137/80 -- -- 102 16 97 % 10/23/22 0038 -- -- -- 96 -- 97 % 10/23/22 0000 135/67 99 ??F (37.2 ??C) Axillary 96 21 98 % 10/22/22 2300 126/67 -- -- 94 19 98 % 10/22/22 2200 123/68 99.4 ??F (37.4 ??C) Axillary 94 22 98 % 10/22/22 2100 133/72 -- -- 96 23 98 % 10/22/222022 -- -- -- 100 -- 98 % 10/22/22 2000 137/67 99.5 ??F (37.5 ??C) Axillary (!) 133 20 98 % 10/22/22 1900 144/70 -- -- (!) 125 13 97 % 10/22/22 1845 135/71 -- -- (!) 113 24 97 % 10/22/22 1830 134/69 -- -- (!) 111 9 97 % 10/22/22 1815 134/70 -- -- 103 21 98 % 10/22/22 1800 141/72 -- -- 105 22 97 % 10/22/22 1745 140/70 -- -- 109 24 98 % 10/22/22 1730 139/68 -- -- 106 23 98 % 10/22/22 1715 127/73 -- -- 107 21 98 % 10/22/22 1700 136/72 -- -- 98 21 99 % 10/22/22 1645 141/70 -- -- 98 21 98 % Intake/Output Summary (Last 24 hours) at 10/23/2022 1638 Last data filed at 10/23/2022 1402 Gross per 24 hour Intake 1134.79 ml Output 1245 ml Net -110.21 ml Exam: Cortical Function Mental Status Awake, alert, follows commands Orientation REYNOLD Language Aphasia Visual Powell Intact bilaterally to confrontation Neglect No visual neglect noted, no tactile neglect noted Cranial Nerves II Pupils 3 mm and bilaterally reactive to light. Fundoscopic exam not performed. VIII Hearing is intact bilaterally to finger rub. III/IV/ Extraocular muscles intact. No diplopia, ptosis, nystagmus or convergence abnormalities noted. IX/X Palate elevated symmetrically without phonation abnormalities noted. V Facial sensation symmetric to light touch and intact bilaterally. Corneal reflex not examined. XIHead turning and shoulder shrug are intact. VII No facial palsy noted. XII Tongue is midline with normal movements and no atrophy noted. Motor Function Movement No abnormalities noted Bulk No abnormalities noted Tone No abnormalities noted Moves RUE and RLE, did not move L side Sensory Light Touch REYNOLD Noxious Stimuli Symmetric and intact bilaterally Temperature Not tested Pallesthesia Not tested Cerebellar FNF DALE HKS Right REYNOLD Deferred REYNOLD Left REYNOLD Deferred REYNOLD Gait Deferred Labs: Recent Labs Component Name 10/23/22 0129 10/22/22 0153 10/21/22231510/21/22 0753 WBC 16.7* - 18.4* 18.6* RBC 2.52* - 2.62* 3.01* HGB 7.8* - 8.1* 9.4* HCT 23.8* - 25.1* 27.9* PLT - 199 - - Recent Labs Component Name 10/23/22 01210/21/22231510/21/22 0459 NA 140 142 142 CL 108* 111* 115* CO2 25 20* 16* BUN 13 16 12 CREATININE 0.51* 0.65 0.64 CALCIUM 8.3* 8.0* 8.2* No results for input(s): MG in the last 23213 hours. Recent Labs Component Name 10/23/22 0129 10/21/22 2316 10/21/22 0459 PHOS 3.4 2.7* 2.2* Recent Labs Component Name 10/20/22 0302 10/19/22 0824 10/19/22 0809 PT 13.6 12.3 - INR 1.1 0.9 0.9 PTT 24.4 - - No results for input(s): A1C in the last 69953 hours. Recent Labs Component Name 10/20/22 0302 06/15/22 0757 CHOL 173 204* HDL 42 37* LDLCALC 91 117* TRIG 201* 251* Recent Labs Component Name 06/15/22 0757 TSH 1.873 No results for input(s): CKMB, CKTOTAL, CKMB, TROPONINI, BNP in the last [address] ANGIO BRAIN NECK STROKE Result Date: 10/19/2022 PROCEDURE: CT ANGIO BRAIN NECK STROKE, DATE/TIME OF EXAM: 10/19/2022 8:16 AM, LOCATION [facility] INDICATION: Code Stroke ADDITIONAL CLINICAL INFORMATION: Ordering Provider Reason For Exam: Technologist Note: Additional: EXAMINATION: 1. Computed tomographic (CT) angiography of the head with contrast 2. CT angiography of the neck with contrast TECHNIQUE: CT angiography of the headand neck was obtained after the uneventful administration [...] a concurrent noncontrasted head CT for detailed intracranialfindings including findings suggesting an acute right MCA [...] arteries are patent. The basilar artery is patentpatent. 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 IMPRESSION: 1. [...] Lonnie Rae MD on 10/19/2022 8:[address] BRAIN - Stroke Result Date: 10/19/2022 PROCEDURE: CT BRAIN STROKE, DATE/TIME OF EXAM: 10/19/2022 8:04 AM, LOCATION [facility] INDICATION: Code Stroke ADDITIONAL CLINICAL INFORMATION: Ordering [...] of scott-white matter differentiation in the right frontotemporallobes and the right insula, concerning for an acute infarct. There is suggestion of a hyperdense right MCA likely represent acute thrombus (series 5 image 25). No acute intracranial hemorrhage or intra- or extra-axial fluid collections are identified. The ventricles are of normal size, shape, and morphology. The basal cisterns are patent. No mass effect or midline shift is seen. The scott-white mat ter differentiation is normal. The visualized portions of [...] Lonnie Rae MD on 10/19/2022 8:15 AM Right middle cerebral artery stroke (CMS/HCC) (POA: Unknown) Acute cerebrovascular accident (CVA) due to embolism of right middle cerebral artery (CMS/HCC) (POA: Yes) Nihss score 9 (POA: Yes) Received intravenous tissue plasminogen activator (tPA) in emergency department (POA: Yes) GERD (gastroesophageal reflux disease) (POA: Yes) Hemianopsia (POA: Yes) Weakness (POA: Yes) Left-sided sensory deficit present (POA: Yes) Gaze palsy (POA: Yes) Migraine (POA: Unknown) Hypertension (POA: Unknown) Assessment ??Consuelo Darby is a 41 year old female who presented on 10/19 with Right MCA syndrome s/p TNK. CTA 1 M1 occlusion. S/P mechanical thrombectomy with R M1 recanalization and TICI2b. CT 10/20/22 with edema and mild shift. S/P decompressive right hemicraniectomy. Echo today showed a mobile aortic valve vegetation. ?? Stroke Type: Ischemic Stroke Mechanism: ESUS ?? Plan ?? Stroke Workup; active - s/p TICI2b revascularization, TNK - CTH, CTA H/N, MRI Brain, MRI H/N - Qday CTH - HbA1C: 6.0, LDL: 91, Cardiac Enzymes; wnl - NPO until passes swallow. TF - q1h vitals and neurological checks - SARAH, RF, factor V leiden, complement, protein c, s, lupus anticoagulant panel, repeat in 1 week - Rheumatology consult - Cardiology consult - CTS consult - Blood cultures ?? Blood Pressure Goals: SBP<160, map>70 ? If tPA given, - repeat CT Head or MR Head in 24 hours to evaluate for bleed - if negative at 24 hours, okay to resume aspirin ? Neurological ?? R M1 ischemic stroke; active - s/p TICI2b revascularization, TNK - CTH, CTA H/N, MRI Brain, MRI H/N - Qday CTH - HbA1C: 6.0, LDL: 91, Cardiac Enzymes; wnl - NPO until passes swallow. TF - q1h vitals and neurological checks - SARAH, RF, factor V leiden, complement, protein c, s, lupus anticoagulant panel, repeat in 1 week - Rheumatology consult - Cardiology consult - CTS consult - Blood cultures - ASA 81, atorvastatin 80 - Stat CT head for any change in neurological examination - MRI Brain or repeat CTH 24 hours post-TNK - Head of bed > 30?? - Avoid hypoglycemia, hyponatremia, and hyperthermia ?? 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 No acute issues ?? - 12-lead EKG - Cardiac markers x 3 - Transthoracic ECHO ordered - Blood pressure goal: SBP<180, map>70 - PRN hydralazine IV and labetalol IV for SBP > 180 - Hemodynamic monitoring ?? HTN: - home metop - PRN hydralazine, labetalol Blood Pressure Goals: SBP <160, map >70 Respiratory ? #AHRF - potential extubation candidate per neuro ICU - Aspiration precautions - Elevate head of bed - Maintain oxygen saturation > 92% - Monitor for respiratory distress Gastrointestinal ? No acute issues ?? 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 No acute issues ?? - Monitor intake and output - Replete electrolytes as needed Hematology ? No acute issues ?? - Avoid unnecessary IM injections and arterial punctures during the first 24 hours post-tPA - Evaluate puncture sites for bleeding or hematoma - Evaluate emesis, secretions, stool, and urine for blood - No nasogastric tube insertions during the first 24 hours post-tPA - Transfuse for hemoglobin < 7.0 g/dL Endocrine ? Vit D deficiency - Vit D 2,000 U daily Infectious Disease ? No acute issues ?? - Monitor for fevers - Ramirez culture if febrile Musculoskeletal ? No acute issues Disposition ? - PT/OT pending ?? Individual Modifiable Risk Factors Hypertension: no Hyperlipidemia: no Diabetes: no Atrial Fibrillation: no Tobacco: no ?? Vickie Muller MD Neurology Resident * Bulmaro Ochoa RN - 10/23/2022 2:17 PM CDT Care Coordination Progress Note Anticipated level of care at discharge: Home, Acute Rehab Facility: Anticipated level of care provider: None: Anticipated Discharge Date: 10/27/22 Discharge Plan: Pending patient's progress with medical treatment and care team recommendations. Pending updated PT, OT evaluation when appropriate. 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 Blood cultures ordered UDS negative on admission Rheumatology consulted given family history of [facility] ICU for at least 48 hours. Orientation Level: Unable to Obtain: Family Support (Name and Phone): Extended Emergency Contact Information Primary Emergency Contact: Hi Darby Address: [address] [place] [address] [place] [address] [facility] Relation: Spouse Secondary Emergency Contact: Sandra Disla [facility] Mobile Relation: Mother Transportation at Discharge: Ambulance: READMISSION RISK SCORE is 16 at 2:17 PM 10/23/2022.: Name:Bulmaro Ochoa RN BSN manager in home [phone] * Laura Patel APRN-CNP - 10/23/2022 2:10 PM CDT Neurosurgery Plan of Care ICPm and LEONCIO drain removed at bedside, insertion sites closed with 3-0 monocryl suture. Patient tolerated procedure well. No complications. From a neurosurgical standpoint you can begin heparin drip for anticoagulation. No bolus, please obtain a CT head once therapeutic. Call neurosurgery and obtain a head CT stat for any acute decline in neuro exam. BRUCE Matthew * Sosa Degroot MD - 10/23/2022 2:01 PM CDT Images from the original note were not included. Vascular Neurology Fellow Plan of Care Note Consuelo Darby is a 41 year old woman presenting to [facility] ED for acute left sensorimotor deficits, left gaze palsy, dysarthria and headache. Early R frontotemporal hypodensity on CTH and R MCA-distalM1 occlusion on CTA. IV TNK was administred within 2 hrs of LKW, she underwent MT with TICI 2b recan alization. Now s/p R decompressive hemicrani on 10/20. SARAH revealed an aortic valve vegetation on the left cusp. Stroke etiology: embolic; AC indicated in light of SARAH finding. Will r/o infection. Plan: - MRI brain w/o - CT surgery and Cardiology consult; agree with Rheumatology consult - Na goal 150 - 155 - SBP goal 140 - 160 - ICP monitoring' NSGY following - maintain normothermic and euglycemic - PT/OT/SIGNALING PROJECT ENGINEER when stable Temp: [98.2 ??F (36.8 ??C)-99.5 ??F (37.5 ??C)] 99.4 ??F (37.4 ??C) Pulse: [86-142] 100 Resp: [9-] 23 BP: (95-159)/(52-116) 106/65 O2 %: [30 %] 30 % Recent Labs Component Name 10/23/22 0129 WBC 16.7* Recent Labs Component Name 10/23/22 0129 10/21/22 2316 10/21/22 0459 06/15/22 0757 12/09/18 0812 07/25/186 03/01/16 0817 SODIUM - - - - 138 135* 141 POTASSIUM 3.4* 3.7 4.8* - 3.8 3.8 3.6 CHLORIDE - - - - 102 103 110* CO2 25 20* 16* - 24 21* 21* BUN 13 16 12 - 10 7 9 CREATININE 0.51* 0.65 0.64 - 0.82 0.93 0.60 EGFR >90 >90 >90 - >60 >60 >60 GLUCOSE 132* 120* 169* - 120* 105 83 CALCIUM 8.3* 8.0* 8.2* - 9.4 9.2 8.1* - = values in this interval not displayed. Sosa Degroot MD, PhD Vascular and Interventional Neurology Fellow * Fariha Matta MD - 10/23/2022 12:13 PM CDT Neurosurgery Progress Note Consuelo Darby 10/23/22 Hospital Day: 4 Subjective: CT H was repeated a couple of times bc concerns of decline neurexam and was not following commands.Has remained intubated in the ICU. ICPs to high teens, back to her baseline exam. ICP M in place. We will pull the LEONCIO today but keep the ICP M. I removed the dressing this am and kept wound open to air and I discussed with Mom at bedside today. FU SARAH Significant Events: POD # 2 DECRA for Stroke. Objective: T: 98.2 ??F (36.8 ??C) [Temp Min: 98.2 ??F (36.8 ??C) Max: 99.5 ??F (37.5 ??C)] BP: 95/52[BP Min: 95/52 Max: 159/75] MAP: 70[MAP (mmHg) Min: 70 Max: 125] HR: 86[Pulse Min: 86 Max: 142] RR: 20[Resp Min: 9 Max: 29] Sat: 99 %[SpO2 Min: 91 % Max: 100 %] ICP: 17 mmHg[ICP #1 Min: 10 mmHg Max: 23 mmHg] ICP M in place. Input/Output: 10/22 0701 - 10/23 0700 In: 2432.8 [I.V.:649.8] Out: 1994 [Urine:1950; Drains:45] LEONCIO Drain: 45 (20) ml. Respiratory: PEEP/CPAP: 5 cm H20 Pressure Support: 5 cm H2O OBSERVED PEAK INSPIRATORY PRESSURE (cm H2O): 12 cm H2O SET TIDAL VOLUME (mL): 450 ML Spontaneous Tidal Volume (mL): 366 ML EXHALED TIDAL VOLUME (ml): 458 ml Labs: Recent Labs Component Name 10/23/22 012 WBC 16.7* HGB 7.8* HCT 23.8* PLTCOUNT 265 Recent Labs Component Name 10/23/22 012 NA 140 POTASSIUM 3.4* CO2 25 BUN 13 CREATININE 0.51* CALCIUM 8.3* GLUCOSE 132* Recent Labs Component Name 10/20/22 0302 INR 1.1 PTT 24.4 Imaging: FU CT H read at 2 pm and at 5 am Diet: DIET NPO Except: NO EXCEPTIONS DIET TUBE FEEDING CONTINUOUS MEDICATIONS FOR CURRENT ENCOUNTER: ?? SCHEDULED MEDICATIONS: ?? *Hold/Avoid Medication, Other, 0800 and 1999 ?? *Hold/Avoid Medication, Other, DIRECTED ?? 0.9% NaCl injection 3 mL, Intracatheter, q8h ?? 0.9% NaCl injection 3 mL, Intracatheter, q8h ?? artificial tears ophthalmic ointment, Each Eye, q8h ?? aspirin chew tablet 81 mg, Enteral Tube, QDAY ?? atorvastatin (Lipitor) tablet 80 mg, Enteral Tube, AT BEDTIME ?? chlorhexidine (Peridex) 0.12 % oral solution 15 mL, Mouth/Throat, BID ?? enoxaparin (Lovenox) injection 40 mg, Subcutaneous, QDAY ?? guaiFENesin (Robitussin) solution 10 mL, Enteral Tube, q12h ?? lansoprazole (Prevacid) suspension 30 mg, Enteral Tube, QDAY BEFORE BREAKFAST ?? loratadine (Claritin) tablet 10 mg, Enteral Tube, QDAY ?? metoprolol tartrate IR (Lopressor) tablet 25 mg, Enteral Tube, q12h ?? polyethylene glycol 3350 (Miralax) packet 17 g, Enteral Tube, QDAY ?? senna-docusate (Senokot-S) tablet 1 tablet, Enteral Tube, QDAY ?? tamsulosin (Flomax) capsule 0.4 mg, Oral, QDAY ?? verapamil (Isoptin) tablet 40 mg, Enteral Tube, q8h ?? vitamin D3 (Cholecalciferol) 25 MCG (1000 UNITS) tablet 2,000 Units, Enteral Tube, QDAY ?? [COMPLETED] potassium chloride (Klor-Con) packet 20 mEq, Enteral Tube, Once ?? [COMPLETED] potassium chloride (Klor-Con) packet 40 mEq, Enteral Tube, Once ?? CONTINUOUS MEDICATIONS: ?? dexmedeTOMIDine (Precedex) 400 mcg in 100 mL NS infusion premix, Intravenous, Continuous ?? propofol (Diprivan) infusion, Intravenous, Continuous ?? PRN MEDICATIONS: ?? Or ?? 0.9% NaCl injection 1-10 mL, Intracatheter, PRN ?? 0.9% NaCl injection 3 mL, Intracatheter, PRN ?? dextrose 10 % IV bolus, Intravenous, PRN ?? dextrose 10 % IV bolus, Intravenous, PRN ?? fentaNYL (PF) (Sublimaze) injection 50 mcg, Intravenous, q2h PRN ?? glucagon (Glucagen) injection 1 mg, Subcutaneous, PRN ?? glucose (Diabetic Use) (Dex4 Glucose) oral liquid, Oral, PRN ?? glucose (Diabetic Use) oral gel, Oral, PRN ?? glucose chew tablet 4 tablet, Oral, PRN ?? vancomycin (Vancocin) injection, , PRN HEENT: Incision CDI with dressing in place, scalp flap is full, LEONCIO to bulb suction, ICPm in place Neuro: Intubated, spontaneous eye opening, right gaze preference, right UE and LE moving spontaneously with good strength against resistance, left sided hemiparesis 1/, sensation intact to noxious stimulation ?? Assessment: 41 year old female with PMHx of GERD, tobacco use who presented on 10/19 with left sided weakness (NIHSS:7) secondary to right MCA territory infarct. CT angiogram of the brain right MCA M1 occlusion s/p mechanical thrombectomy with R M1 recanalization and TICI2b. CT 10/20/22 with worsening edema and midline shift resulting in progression to malignant MCA infarction now s/p right??decompressive hemicraniectomy and ICPm insertion 10/[address] Marquez.??Following the operation, she was transferred intubated to the ICU for close monitoring. ?? Plan: Serial neuro checks q1hr,??HOB >??30 BP parameters per neuro ICU team, avoid hypertension Keep INR??<??1.3, PLts >100.000 ICP goal < 20 mmHg, maintain??PbtO2??(tissue oxygenation) between??25 to 50 mm Hg Regular wound care, LEONCIO to bulb suction - empty/document q2hrs and PRN Ok for prophylactic heparin sc and ASA 81mg daily as needed per primary team Contact our service immediately with any changes in neurological examination or VS instability Overall care per neuro ICU team ?? Fariha Matta MD 12:13 PM 10/23/22 * Jakcelyn Flores RN - 10/23/2022 11:33 AM CDT Problem: ELOPEMENT/ABDUCTION Goal: Risk for elopement &/or abduction during hospitalization is minimized Outcome: Progressing Problem: Safety related to restraint use Goal: Absence of injury while restrained Outcome: Progressing Problem: Fall Risk Goal: Fall risk and fall related injury risk are minimized (interventions related to the fall risk can be found in the flowsheet documentation) Outcome: Progressing Problem: Skin Integrity Goal: Skin integrity is maintained or improved Outcome: Progressing Problem: Pain/Discomfort Goal: Patient exhibits reduced pain/discomfort as evidenced by pain scores Outcome: Progressing Goal: Patient uses pharmacological and non-pharmacological pain management strategies. Outcome: Progressing Goal: Patient verbalizes acceptable level of pain relief and ability to engage in desired activity. Outcome: Progressing Problem: Neurological Deficit Goal: Neurological status is stable or improving Outcome: Progressing Problem: Hemodynamic Status/Cardiac Output Goal: Patient has stable vital signs and fluid balance Outcome: Progressing Problem: Oxygenation/Respiratory Function Goal: Respiratory rate/effort will be within specified limits Outcome: Progressing Problem: Mobility Goal: Patient's mobility/activity will be maintained as optimum level for age, diagnosis and physical limitations Outcome: Progressing Goal: Continuum of care needs are further met through referral to outpatient services when appropriate. Outcome: Progressing Goal: Patient reports the ability to perform Activities of Daily Living. Outcome: Progressing Problem: Communication Impairment/Dysarthria Goal: Ability to express needs and understand communication Outcome: Progressing Problem: Nutrition Goal: Nutritional status is improving Outcome: Progressing Problem: Aspiration Precautions Goal: Patient's risk of aspiration is minimized Outcome: Progressing Problem: Glycemic Control Goal: Clinical indication of glycemia balance is achieved Outcome: Progressing Problem: Knowledge Deficit,Education,Discharge Plan Goal: The patient/family will understand cerebrovascular disease and its symptoms, treatment and management Outcome: Progressing Problem: Oral Intake: Inadequate oral intake Goal: Total intake will meet estimated nutrient needs Outcome: Progressing Problem: Swallowing Goal: LTG - Patient will tolerate the least restrictive diet consistency to allow for safe consumption of daily meals Outcome: Progressing Problem: Transfers Goal: STG - Transfer from bed to chair Outcome: Progressing Problem: Risk for Violence: Self-Directed or Other Directed Description: Diagnosis: Risk for self-directed Violence or Risk for Directed Violence Risk Factors: Biochemical/neurologic imbalances, impulsivity, manic excitement, psychotic symptomatology, rage reaction, restlessness Possibly Evidenced By: agitated behaviors, delusional thinking, hallucinations, loud/threatening/profane speech, poor impulse control, provocative behaviors, verbal threats against others, verbal threats against self Goal: Patient will verbalize control of feelings. Outcome: Progressing Goal: Patient will respond to interventions when potential or actual loss of control occurs. Outcome: Progressing Goal: Patient will refrain from provoking others to physical harm. Outcome: Progressing Goal: Patient will display nonviolent behaviors toward others in the hospital, with the aid of medications and nursing interventions. Outcome: Progressing Goal: Patient will seek help when experiencing aggressive impulses. Outcome: Progressing Goal: Patient will refrain from verbal threats and loud, profrane language toward others. Outcome: Progressing Goal: Patient will be safe and free from injury. Outcome: Progressing * Anita Richards - 10/23/2022 9:23 AM CDT Care Coordination Progress Note DISCHARGE PLAN: Chart reviewed Patient is not medically ready to transition to next level of care SARAH today Post acute recommendation: Undetermined; pending therapy evaluations Insurance authorization is required for post acute care needs Patient is an [employer] employee; [employer] for all post acute care needs Payer/Plan Subscriber Name Rel Member # Group # [id number] [facility]* CONSUELO DARBY [id number] [address] [id number] Anticipated level of care at discharge: Home, Acute Rehab Facility: Anticipated level of care provider: None: Anticipated Discharge Date: 10/26/22: Orientation Level: Unable to Obtain: Family Support (Name and Phone): Extended Emergency Contact Information Primary Emergency Contact: Hi Darby [address]: [address] [place] [address] [place] [address] [facility] Relation: Spouse Secondary Emergency Contact: Sandra Disla [facility] Mobile Relation: Mother Transportation at Discharge: Ambulance: READMISSION RISK SCORE is 16 at 9:23 AM 10/23/2022.: Name: Anita Richards * Emir Vail MD - 10/23/2022 8:16 AM CDT Images from the original note were not included. I have seen and examined the patient with the resident and I agree with the findings and plan of care as documented by the resident. Date of Service: 10/23/2022 Emir Vail MD Multidisciplinary rounds were held at 9am and the patient's care and recovery plan were reviewed and developed with the assembled team. Consuelo Darby is a 41 year old 41 year old??with GERD, tobacco, presented on 10/19 with Right MCA syndrome s/p TNK. CTA 1 M1 occlusion. S/P mechanical thrombectomy with R M1 recanalization and TICI2b. CT 10/20/22 with edema and mildshift. On exam, lid apraxia and following briskly on right; slight LLE movement. Hx of OCP use. S/Pdecompressive right hemicraniectomy. Echo today showed a mobile aortic valve vegetation. Mechanism of infarct is this aortic valve vegetation of unknown etiology. Possibilities include autoimmune, aortic valve fibroelastoma is a possibility, infectious. At this time, the etiology of the vegetation is unclear and we have incomplete information. Anticoagulation with heparin is reasonable although she has a sizable stroke and the risk of hemorrhage into this is present. We will check blood cultures for 24 hours and if negative proceed with Anticoagulation. In the meantime we will obtain blood cultures for 24 hours, ESR/CRP, MR brain and cardiac CT to further characterize the lesion. Will place consults and appreciate input from NCC, NSGY, rheumatology,cardiology, and CT surgery. If blood cultures x24 hours are negative we will proceed with anticoagulation. - Continue Close neurological monitoring. - Repeat CT at 0400 daily or if neurologic decline - On ASA The case and plan was discussed extensively with the family who agreed with the plan and verbalizedtheir understanding of the potential risks and benefits. Problem List Right middle cerebral artery stroke (CMS/HCC) (POA: Unknown) Acute cerebrovascular accident (CVA) due to embolism of right middle cerebral artery (CMS/HCC) (POA: Yes) Nihss score 9 (POA: Yes) Received intravenous tissue plasminogen activator (tPA) in emergency department (POA: Yes) GERD (gastroesophageal reflux disease) (POA: Yes) Hemianopsia (POA: Yes) Weakness (POA: Yes) Left-sided sensory deficit present (POA: Yes) Gaze palsy (POA: Yes) Migraine (POA: Unknown) Hypertension (POA: Unknown) See Resident note for the remaining problem specific plan. 4 MEDICATIONS FOR CURRENT ENCOUNTER: SCHEDULED MEDICATIONS: *Hold/Avoid Medication, Other, 0800 and 1999 *Hold/Avoid Medication, Other, DIRECTED 0.9% NaCl injection 3 mL, Intracatheter, q8h 0.9% NaCl injection 3 mL, Intracatheter, q8h artificial tears ophthalmic ointment, Each Eye, q8h aspirin chew tablet 81 mg, Enteral Tube, QDAY chlorhexidine (Peridex) 0.12 % oral solution 15 mL, Mouth/Throat, BID enoxaparin (Lovenox) injection 40 mg, Subcutaneous, QDAY lansoprazole (Prevacid) suspension 30 mg, Enteral Tube, QDAY BEFORE BREAKFAST loratadine (Claritin) tablet 10 mg, Enteral Tube, QDAY metoprolol tartrate IR (Lopressor) tablet 25 mg, Enteral Tube, q12h polyethylene glycol 3350 (Miralax) packet 17 g, Enteral Tube, QDAY potassium chloride (Klor-Con) packet 20 mEq, Enteral Tube, Once potassium chloride (Klor-Con) packet 40 mEq, Enteral Tube, Once senna-docusate (Senokot-S) tablet 1 tablet, Enteral Tube, QDAY tamsulosin (Flomax) capsule 0.4 mg, Oral, QDAY verapamil (Isoptin) tablet 40 mg, Enteral Tube, q8h vitamin D3 (Cholecalciferol) 25 MCG (1000 UNITS) tablet 2,000 Units, Enteral Tube, QDAY ?? [COMPLETED] isolyte-S pH 7.4 bolus, Intravenous, Once CONTINUOUS MEDICATIONS: ?? dexmedeTOMIDine (Precedex) 400 mcg in 100 mL NS infusion premix, Intravenous, Continuous PRN MEDICATIONS: Or 0.9% NaCl injection 1-10 mL, Intracatheter, PRN 0.9% NaCl injection 3 mL, Intracatheter, PRN dextrose 10 % IV bolus, Intravenous, PRN dextrose 10 % IV bolus, Intravenous, PRN fentaNYL (PF) (Sublimaze) injection 50 mcg, Intravenous, q2h PRN glucagon (Glucagen) injection 1 mg, Subcutaneous, PRN glucose (Diabetic Use) (Dex4 Glucose) oral liquid, Oral, PRN glucose (Diabetic Use) oral gel, Oral, PRN glucose chew tablet 4 tablet, Oral, PRN ?? vancomycin (Vancocin) injection, , PRN Patient Vitals for the past 24 hrs: Temp Pulse Resp BP 10/23/22 0730 -- 92 20 144/70 10/23/22 0715 -- 93 19 146/72 10/23/22 0700 -- 93 20 146/79 10/23/22 0600 98.4 ??F (36.9 ??C) 100 22 136/75 10/23/22 0500 -- 109 13 150/78 10/23/22 0414 -- 97 -- -- 10/23/22 0400 98.9 ??F (37.2 ??C) 91 20 138/72 10/23/22 0300 -- 93 20 139/67 10/23/22 0200 99.2 ??F (37.3 ??C) 90 15 138/68 10/23/22 0100 -- 102 16 137/80 10/23/22 0038 -- 96 -- -- 10/23/22 0000 99 ??F (37.2 ??C) 96 21 135/67 10/22/22 2300 -- 94 19 126/67 10/22/22 2200 99.4 ??F (37.4 ??C) 94 22 123/68 10/22/22 2100 -- 96 23 133/72 10/22/222022 -- 100 -- -- 10/22/22 2000 99.5 ??F (37.5 ??C) (!) 133 20 137/67 10/22/22 1900 -- (!) 125 13 144/70 10/22/22 1845 -- (!) 113 24 135/71 10/22/22 1830 -- (!) 111 9 134/69 10/22/22 1815 -- 103 21 134/70 10/22/22 1800 -- 105 22 141/72 10/22/22 1745 -- 109 24 140/70 10/22/22 1730 -- 106 23 139/68 10/22/22 1715 -- 107 21 127/73 10/22/22 1700 -- 98 21 136/72 10/22/22 1645 -- 98 21 141/70 10/22/22 1630 -- 99 23 139/66 10/22/22 1615 -- 97 22 137/71 10/22/22 1600 -- 101 22 136/69 10/22/22 1545 -- 96 20 134/66 10/22/22 1530 -- 89 19 134/66 10/22/22 1515 -- 89 21 -- 10/22/22 1500 -- 88 20 -- 10/22/22 1445 -- 98 20 -- 10/22/22 1430 -- 105 17 -- 10/22/22 1400 -- 97 22 134/74 10/22/22 1345 -- 102 21 128/72 10/22/22 1330 -- 98 20 126/74 10/22/22 1315 -- 98 25 123/71 10/22/22 1300 -- 101 22 121/69 10/22/22 1245 -- 109 24 132/88 10/22/22 1230 -- 93 20 116/63 10/22/22 1215 -- 96 20 120/79 10/22/22 1200 99.6 ??F (37.6 ??C) 105 (!) 33 123/78 10/22/22 1145 -- 83 20 119/64 10/22/22 1130 -- 98 22 121/71 10/22/22 1115 -- 86 22 121/72 10/22/22 1100 -- 85 21 117/69 10/22/22 1045 -- 95 26 127/76 10/22/22 1030 -- 88 23 119/73 10/22/22 1015 -- 85 25 126/71 10/22/22 1000 -- 99 16 138/76 10/22/22 0945 -- 78 22 134/69 10/22/22 0930 -- 86 22 127/70 10/22/22 0915 -- 81 23 127/63 10/22/22 0900 -- 104 (!) 35 128/71 10/22/22 0858 -- 81 19 128/71 10/22/22 0845 -- 83 19 127/62 10/22/22 0830 -- 87 19 126/64 Recent Labs Component Name 10/23/22 01210/21/22 2316 10/21/22 0459 NA 140 142 142 CL 108* 111* 115* CO2 25 20* 16* BUN 13 16 12 CREATININE 0.51* 0.65 0.64 CALCIUM 8.3* 8.0* 8.2* PHOS 3.4 2.7* 2.2* Recent Labs Component Name 10/23/22 0129 10/22/22 0153 10/21/22 2316 10/21/22 0753 WBC 16.7* - 18.4* 18.6* RBC 2.52* - 2.62* 3.01* HGB 7.8* - 8.1* 9.4* HCT 23.8* - 25.1* 27.9* PLT - 199 - - Recent Labs Component Name 10/20/22 0302 06/15/22 0757 CHOL 173 204* TRIG 201* 251* HDL 42 37* LDLCALC 91 117* Recent Labs Component Name 10/20/22 1015 HGBA1C 6.0* EAG 126 Recent Labs Component Name 10/23/22 0129 10/21/22 0753 10/21/22 0459 PLTCOUNT 265 259 260 * Shauna Martines RN - 10/23/2022 8:00 AM CDT Problem: Safety related to restraint use Goal: Absence of injury while restrained Outcome: Progressing Problem: Fall Risk Goal: Fall risk and fall related injury risk are minimized (interventions related to the fall risk can be found in the flowsheet documentation) Outcome: Progressing Problem: Skin Integrity Goal: Skin integrity is maintained or improved Outcome: Progressing Problem: Pain/Discomfort Goal: Patient exhibits reduced pain/discomfort as evidenced by pain scores Outcome: Progressing Goal: Patient uses pharmacological and non-pharmacological pain management strategies. Outcome: Progressing Problem: Neurological Deficit Goal: Neurological status is stable or improving Outcome: Progressing Problem: Hemodynamic Status/Cardiac Output Goal: Patient has stable vital signs and fluid balance Outcome: Progressing Problem: Oxygenation/Respiratory Function Goal: Respiratory rate/effort will be within specified limits Outcome: Progressing Problem: Nutrition Goal: Nutritional status is improving Outcome: Progressing Problem: Aspiration Precautions Goal: Patient's risk of aspiration is minimized Outcome: Progressing Problem: Glycemic Control Goal: Clinical indication of glycemia balance is achieved Outcome: Progressing * Shahbaz Bowen MD - 10/23/2022 7:44 AM CDT Neuro ICU Attending Progress Note Admit Date: 10/19/2022 Hospital Day: 5 Subjective: Admission / Interval History: No acute events overnight Scheduled Medications: ??? *Hold/Avoid Medication Other DIRECTED ??? *Hold/Avoid Medication Other 799 and 1999 ??? 0.9% NaCl 3 mL Intracatheter q8h ??? 0.9% NaCl 3 mL Intracatheter q8h ??? artificial tears Each Eye q8h ??? aspirin 81 mg Enteral Tube QDAY ??? chlorhexidine 15 mL Mouth/Throat BID ??? enoxaparin 40 mg Subcutaneous QDAY ??? lansoprazole 30 mg Enteral Tube QDAY BEFORE BREAKFAST ??? loratadine 10 mg Enteral Tube QDAY ??? metoprolol tartrate IR 25 mg Enteral Tube q12h ??? polyethylene glycol 3350 17 g Enteral Tube QDAY ??? potassium chloride 20 mEq Enteral Tube Once ??? potassium chloride 40 mEq Enteral Tube Once ??? senna-docusate 1 tablet Enteral Tube QDAY ??? tamsulosin 0.4 mg Oral QDAY ??? verapamil 40 mg Enteral Tube q8h ??? Vitamin D3 (cholecalciferol) 2,000 Units Enteral Tube QDAY Continuous Medications / Infusions: dexmedeTOMIDine, 0-1.5 mcg/kg/hr, Last Rate: Stopped (10/22/22 1255) PRN Medications: 0.9% NaCl, 1-10 mL, PRN 0.9% NaCl, 3 mL, PRN dextrose IV for hypoglycemia, 12.5 g, PRN Or dextrose IV for hypoglycemia, 25 g, PRN fentaNYL (PF), 50 mcg, q2h PRN glucagon, 1 mg, PRN glucose (Diabetic Use), , PRN glucose (Diabetic Use) gel, , PRN glucose chew tab, 16 g, PRN vancomycin, , PRN Objective: Patient Vitals for the past 8 hrs: BP Temp Temp src Pulse Resp SpO2 10/23/22 0730 144/70 -- -- 92 20 98 % 10/23/22 0715 146/72 -- -- 93 19 98 % 10/23/22 0414 -- -- -- 97 -- 98 % 10/23/22 0400 138/72 98.9 ??F (37.2 ??C) Axillary 91 20 99 % 10/23/22 0300 139/67 -- -- 93 20 97 % 10/23/22 0200 138/68 99.2 ??F (37.3 ??C) Axillary 90 15 99 % 10/23/22 0100 137/80 -- -- 102 16 97 % 10/23/22 0038 -- -- -- 96 -- 97 % 10/23/22 0000 135/67 99 ??F (37.2 ??C) Axillary 96 21 98 % Temp (24hrs), Av.3 ??F (37.4 ??C), Min:98.9 ??F (37.2 ??C), Max:99.6 ??F (37.6 ??C) Physical Examination: BP 144/70 Pulse 92 Temp 98.9 ??F (37.2 ??C) (Axillary) Resp 20 Ht 1.626 m (5' 4 ) Wt 95.3kg (210 lb) SpO2 98% GEN: NAD RESP: CTAB ABD: soft NT ND CVS: RRR No MRG NEURO: follows commands clearly in RUE and RLL, does not follow on L Examiner Attestation: Patient seen and examined. Resident note reviewed and discussed. I confirm the resident's documentation and findings except where revised on this note. Labs reviewed with team on rounds, see resident note for details Assessment / Plan: NEURO R MCA infarct s/p TNK and thrombectomy 10/23: ASA per stroke team. keep SBP <180, Cerebral edema on CT this AM stable, Vegetation on aortic side of aortic valve found on SARAH with workup and management below. No needs for osmolar therapyto control ICPs, but use hypertonic saline bolus for ICP > 22 for > 5mins. MRI brain to f/u on aneurysm on prior CTA. RESP Acute resp failure, intubated due to changes in mental status prior to hemicraniectomy 10/23 reports of thick secretions, no infiltrate on CXR no fever. Will monitor if not worsening willproceed to extubation if continuing to meet criteria on 10/24 CVS Aortic vegetation 10/23: Vegetation discovered, no signs of valve dysfunction, will send blood cultures. Cardiac CT tosee if further information can be elucidated. f/u with rheum re further workup. RENAL/ Urinary Retention 10/23: c/w bladder scan and straight cath ENDO -monitor for stress Hyperglycemia GI Malnutrition 10/23: TF paused for SARAH procedure briefly. No reports of intolerance. Last BM on 10/22 on a bowel regimen. Will pause for a couple hrs prior to extubation. Had a brief discussion with mother and on high likelihood of needing a PEG for nutritional HEME Anemia 10/23: Will monitor for signs/sites of bleeding (craniectomy site/groin access site), non so far. Anticoagulation for possible non bacterial endocarditis 10/23: starting heparin has risk of hemorrhagic conversion after her large CVA. After discussion stroke service will hold on starting AC until BCX return. ID WBC 10 on admission, then with what was likely Post procedure leukocytosis, now improving without intervention no fevers, increased post procedure, has only received glenis-procedural abx 10/23: Send Blood cultures x2 LINES PIVS Additional Information: The present set of clinical problems have a high likelihood of sudden deterioration associated withsignificant morbidity and involve high complexity decision making to frequently assess, manipulate,and support vital systems function. Discontinuation of therapies, or advanced physiological and clinical monitoring, poses a significant threat of prolonged morbidity or mortality. Critical Care 30-74 minutes: 40 mins (Time involved in the performance of separately billable procedures, teaching, or reviewing educational material was not counted towards critical care time.) Shahbaz Bowen MD 10/23/2022 7:45 AM * Jorge Dodd - 10/23/2022 7:12 AM CDT Chaplain Patel followed up with pt and family briefly. Pt's mom stayed the night, giving Ramirez break to go be with their two daughters. Offered mom care and support during this long process. Family continues to need support. [phone]/[id number] Jorge Dodd 10/23/2022 7:16 AM * Bob Weaver - 10/23/2022 7:09 AM CDT Images from the original note were not included. Neurology Critical Care Progress Note Consuelo Darby Age: [age] year old Date of : 1980 Date of Admission: 10/19/2022 Hospital Day: 4 Subjective Hospital Course: Consuelo Darby is a 41 year old female with a history of hypertension, migraines, and GERD who initially presented on 10/18 for sudden onset left sided weakness and dysarthria with initial NIHSS of 7s/p TNK and TlCl2b revascularization of R M1 occlusion and s/p hemicraniectomy on 10/20. Started on a nicardipine drip for SBP <140 after thrombectomy. Taken for hemicraniectomy and ICPm insertionon 10/20 for concern of MCA syndrome given worsening edema and midline shift. At that time she was intubated, was not extubated afterwards and transferred to ICU. Was on levophed following but has been without pressor requirement since 10/21. TTE for further stroke workup noncontributory. Interval History: No acute events overnight. Patient to go to SARAH today with cardiology today. Has had increased clear secretions which she has been able to cough up, started to worsen yesterday. Otherwise no new complaints from family, patient appears comfortable and without pain this am. --SARAH completed during our rounds, shows vegetation of the aortic valve most concerning for noninfective vs infective endocarditis. Of note, patient has a sister with Sjogren's. NG tube removed during procedure. Objective Patient Vitals for the past 24 hrs: BP Temp Temp src Pulse Resp SpO2 10/23/22 0414 -- -- -- 97 -- 98 % 10/23/22 0400 138/72 98.9 ??F (37.2 ??C) Axillary 91 20 99 % 10/23/22 0300 139/67 -- -- 93 20 97 % 10/23/22 0200 138/68 99.2 ??F (37.3 ??C) Axillary 90 15 99 % 10/23/22 0100 137/80 -- -- 102 16 97 % 10/23/22 0038 -- -- -- 96 -- 97 % 10/23/22 0000 135/67 99 ??F (37.2 ??C) Axillary 96 21 98 % 10/22/22 2300 126/67 -- -- 94 19 98 % 10/22/22 2200 123/68 99.4 ??F (37.4 ??C) Axillary 94 22 98 % 10/22/22 2100 133/72 -- -- 96 23 98 % 10/22/222022 -- -- -- 100 -- 98 % 10/22/221999 137/67 99.5 ??F (37.5 ??C) Axillary (!) 133 20 98 % 10/22/22 1900 144/70 -- -- (!) 125 13 97 % 10/22/22 1845 135/71 -- -- (!) 113 24 97 % 10/22/22 1830 134/69 -- -- (!) 111 9 97 % 10/22/22 1815 134/70 -- -- 103 21 98 % 10/22/22 1800 141/72 -- -- 105 22 97 % 10/22/22 1745 140/70 -- -- 109 24 98 % 10/22/22 1730 139/68 -- -- 106 23 98 % 10/22/22 1715 127/73 -- -- 107 21 98 % 10/22/22 1700 136/72 -- -- 98 21 99 % 10/22/22 1645 141/70 -- -- 98 21 98 % 10/22/22 1630 139/66 -- -- 99 23 99 % 10/22/22 1615 137/71 -- -- 97 22 98 % 10/22/22 1600 136/69 -- -- 101 22 100 % 10/22/22 1545 134/66 -- -- 96 20 95 % 10/22/22 1530 134/66 -- -- 89 19 96 % 10/22/22 1515 -- -- -- 89 21 96 % 10/22/22 1500 -- -- -- 88 20 97 % 10/22/22 1445 -- -- -- 98 20 98 % 10/22/22 1430 -- -- -- 105 17 99 % 10/22/22 1400 134/74 -- -- 97 22 99 % 10/22/22 1345 128/72 -- -- 102 21 96 % 10/22/22 1330 126/74 -- -- 98 20 98 % 10/22/22 1315 123/71 -- -- 98 25 99 % 10/22/22 1300 121/69 -- -- 101 22 98 % 10/22/22 1245 132/88 -- -- 109 24 98 % 10/22/22 1230 116/63 -- -- 93 20 98 % 10/22/22 1215 120/79 -- -- 96 20 98 % 10/22/22 1200 123/78 99.6 ??F (37.6 ??C) Axillary 105 (!) 33 98 % 10/22/22 1145 119/64 -- -- 83 20 97 % 10/22/22 1130 121/71 -- -- 98 22 96 % 10/22/22 1115 121/72 -- -- 86 22 96 % 10/22/22 1100 117/69 -- -- 85 21 98 % 10/22/22 1045 127/76 -- -- 95 26 99 % 10/22/22 1030 119/73 -- -- 88 23 97 % 10/22/22 1015 126/71 -- -- 85 25 98 % 10/22/22 1000 138/76 -- -- 99 16 99 % 10/22/22 0945 134/69 -- -- 78 22 97 % 10/22/22 0930 127/70 -- -- 86 22 97 % 10/22/22 0915 127/63 -- -- 81 23 97 % 10/22/22 0900 128/71 -- -- 104 (!) 35 95 % 10/22/22 0858 128/71 -- -- 81 19 96 % 10/22/22 0845 127/62 -- -- 83 19 96 % 10/22/22 0830 126/64 -- -- 87 19 95 % 10/22/22 0815 122/69 -- -- 102 19 95 % 10/22/22 0800 122/60 99.2 ??F (37.3 ??C) Axillary 85 20 94 % 10/22/22 0745 129/66 -- -- 82 17 98 % 10/22/22 0730 130/63 -- -- 79 19 100 % 10/22/22 0715 126/65 -- -- 86 (!) 33 98 % Intake/Output Summary (Last 24 hours) at 10/23/2022 0710 Last data filed at 10/23/2022 0400 Gross per 24 hour Intake 1685.78 ml Output 1995 ml Net -309.22 ml Exam: Intubated, precedex turned off Surgical site of sonya/crani is clean, dry, and intact, without discharge, warmth or erythema Pupils reactive bilaterally Cough and gag deferred Able to open L eye but not forceful, edema on R eye and unable to open Moves RUE/RLE spont Follows commands on RUE/RLE LUE/LLE no movement noted, noxious deferred Labs: Reviewed. Right middle cerebral artery stroke (CMS/HCC) (POA: Unknown) Acute cerebrovascular accident (CVA) due to embolism of right middle cerebral artery (CMS/HCC) (POA: Yes) Nihss score 9 (POA: Yes) Received intravenous tissue plasminogen activator (tPA) in emergency department (POA: Yes) GERD (gastroesophageal reflux disease) (POA: Yes) Hemianopsia (POA: Yes) Weakness (POA: Yes) Left-sided sensory deficit present (POA: Yes) Gaze palsy (POA: Yes) Migraine (POA: Unknown) Hypertension (POA: Unknown) Imaging Data: Reviewed. Assessment Consuelo Darby is a 41 year old female presenting for sudden onset left sided weakness and dysarthria, concerning for TIA/stroke s/p TNK and TiCi2b revascularization of M1 occlusion and s/p hemicraniectomy on 10/20. Vital signs remain stable. Physical exam with unchanged L sided weakness. Downtrending leukocytosis at 16 today, Hg down to 7.8. Repeat CT unchanged this AM. SARAH on 10/23 concerningfor noninfectious vs infectious endocarditis. NSGY, cardiology following, rheum onboard for workup of autoimmune causes of endocarditis. Stroke Type: Ischemic Stroke Mechanism (As per TOAST Classification): Cardioembolic Plan Neurological #R MCA M1 occlusion s/p MT with TICI 2B recanalization #S/P TNK administration #S/p hemicraniectomy #Malignant MCA syndrome Workup: --S/P hemicrani on 10/20 with NSGY --Repeat CTH 4 am 10/23 monitoring for increased brain swelling, appears stable no changes in edema or midline shift ?? Plan: --NSGY following --ICP goal < 20, PbtO2 between 25-50 --INR < 1.3, PLT > 100 --Ok for heparin sc and ASA 81 mg daily per NSGY --Neurological checks q1hr --Pupillometer checks q1hr with recorded NPIs q1hr --ICP less than 22, SBP less than 160 --3% HTS 250 cc bolus for ICP >22 for over 5 mins --Okay to start asa per NSGY 10/22 --Head of bed > 30?? --Avoid hypoglycemia, hyponatremia, and hyperthermia --ASA 81 mg started 10/22 --TTE normal --SARAH showing vegetation of the aortic valve, completed on 10/23 --Will check with NSGY before intiating heparin drip for concern of noninfective endocarditis, goalPTT 60-80 ?? #Hx Migraines --On Amitriptyline 50 mg BID and verapamil 120 mg daily at home. Holding amitriptyline. Cardiovascular Pulse Min: 75 Max: 147, BP Min: 100/83 Max: 174/91 #Aortic valve vegetation --SARAH on 10/23 showing vegetation on L coronary cusp, negative bubble study, no thrombus in atrial appendage --Most concerning for noninfective endocarditis as patient has been afebrile with a downtrending leukocytosis which is likely reactive in the setting of hemicrani. Still concern for infective endocarditis although she does not have any clinical manifestations of the disease; will order blood cultures --F/u blood cultures --Rheumatology consulted, appreciate recommendations --Will reach out to neurosurgery in regards to starting on heparin drip #Hx Hypertension --On Metoprolol 25 mg BID at home, will continue ?? --SBP goal < 160 ICP <22. No PRNs ordered at this time. Nursing staff told to call MD if consistently elevated blood pressures. Respiratory #AHRF --Intubated after hemicrani on 10/20. --On PSV, tolerating, FiO2 30% PEEP 5 --RSBI 90, still occasionally tachypneic --Will plan for extubation tomorrow in the AM #Increased secretions --Has been having increased clear secretions --CXR without concern for focal consolidation, concern for HAP/VAP low at this time --Will start mucinex today ?? --Aspiration precautions --Elevate head of bed --Maintain oxygen saturation > 92% --Monitor for respiratory distress Renal/Electrolytes Intake/Output Summary (Last 24 hours) at 10/23/2022 0710 Last data filed at 10/23/2022 0400 Gross per 24 hour Intake 1685.78 ml Output 1995 ml Net -309.22 ml #Decreased UOP --Most likely neurogenic bladder --Increase TF to goal --Urine output is adequate at about 1.9L over the last 24 hours, will continue with straight cath as she is not urinating Infectious Disease Temp (24hrs), Av.3 ??F (37.4 ??C), Min:98.9 ??F (37.2 ??C), Max:99.6 ??F (37.6 ??C) #Concern for endocarditis --WBC trending down, at 16 today --SARAH as above --Blood cultures as above --Concern for infection is low at this time --See cardiovascular above --Monitor for fevers --Ramirez culture if febrile Gastrointestinal #Hx GERD --Lansoprozole 30 mg ordered. --Diet: Goal TF --NG tube replaced s/p SARAH, KUB ordered --GI ppx: Lansoprozole --Last BM: a day ago --BM regimen: senna and miralax Endocrine No acute issues, all electrolytes within normal limits. Hypokalemic this AM, repleted, CTM --A1c 6.0 --Accuchecks Hematology Recent Labs Component Name 10/23/22 0129 WBC 16.7* HGB 7.8* HCT 23.8* PLTCOUNT 265 #Leukocytosis --Downtrending, likely reactive in the setting of hemicrani #Normocytic anemia --Hgb 7.8 --Blood loss from hemicrani vs. chronic disease now in the setting of suspected rheumatologic disease. Imaging continues to remain without hemorrhagic conversion of stroke, concern for intracranial hematoma is low --Transfuse if Hgb < 7.0 ?? DVT ppx: SCDs, Lovenox on 10/22 per nsg. ?? Hypercoaguable workup per stroke team. Protein c and s noncontributory, lupus anticoagulant, SARAH are both negative Musculoskeletal No active issues Disposition --PT/OT pending Feeds/Fluids: Tube Feeds Analgesia: Fentanyl pushes PRN, tylenol PRN Sedation: Precedex ordered, turned off Thromboprophylaxis: scd, lovenox HOB: HOB 30 degrees Ulcer Ppx: Lansozprozole 30 mg Glucose: wnl, accuchecks SBT: on PSV BR: senna and miralax Indwelling lines: 2 PIVs, drain, NGT to be replaced on 10/23, ETT since 10/20 De-escalation: ICU for at least 48 hours Family: best friend updated at bedside Case findings discussed with Dr. Andrés MD. [facility] * Paris Mohr MD - 10/23/2022 6:46 AM CDT Images from the original note were not included. Neurocritical Care Progress Note Consuelo Darby Age: [age] year old Date of : 1980 Date of Admission: 10/19/2022 Hospital Day: 4 Subjective History of Present Illness Consuelo Darby is a 41yo M who developed acute onset L sided weakness, L-sided sensory deficits, and dysarthria. L sided weakness resolved in route and dysarthria improved in route. On arrival patient noted to L gaze plasy, L hemainopsia, mild dysarthria, and extinction. NIHSS: 7. Patient was givenTNK and code IVR was activated. TICI2b revascularization of the R MCA M1 occlusion. 10/19: Cardene drip for maintaining SBP <140 post MT. 10/20: Taken for hemicrani with nsg. 10/21: Off levo, prop and fent. On Precedex. Tolerating PSV. 10/22: CTH showed increased edema but no MLS. ICPs wnl. Tolerating PSV well. Interval History: Overnight had a brief episode of non responsiveness after a BM. Later followed commands. CTH obtained with no new changes Objective BP 138/72 Pulse 97 Temp 98.9 ??F (37.2 ??C) (Axillary) Resp 20 Ht 1.626 m (5' 4 ) Wt 95.3kg (210 lb) SpO2 98% Temp (30hrs) Max:99.6 ??F (37.6 ??C) Body mass index is 36.05 kg/m??. Exam - Neurologic Intubated, sedated on precedex 0.4 Pupils reactive bilaterally Cough and gag present Does not open eyes (?eyelid apraxia) Moves RUE/RLE spont Follows commands on RUE/RLE LUE/LLE no movement noted, noxious deferred Labs: Reviewed. Imaging: ECHO: ??? Left??Ventricle: Left ventricle size is normal. Normal wall thickness. Normal systolic functionwith a visually estimated EF of 60 - 65%. Normal wall motion. Normal diastolic function. ??? Normal RV size and systolic function. ??? No significant valvular abnormalities. ??? Bubble study negative for shunt. ??? Normal IVC and visualized portion of aorta. Hospital Problems on Admission: Right middle cerebral artery stroke (CMS/HCC) (POA: Unknown) Acute cerebrovascular accident (CVA) due to embolism of right middle cerebral artery (CMS/HCC) (POA: Yes) Nihss score 9 (POA: Yes) Received intravenous tissue plasminogen activator (tPA) in emergency department (POA: Yes) GERD (gastroesophageal reflux disease) (POA: Yes) Hemianopsia (POA: Yes) Weakness (POA: Yes) Left-sided sensory deficit present (POA: Yes) Gaze palsy (POA: Yes) Migraine (POA: Unknown) Hypertension (POA: Unknown) Assessment Consuelo Darby is a 41 year old female presenting with R gaze preference, L hemianopsia, L arm and leg hemiparesis, and L extinction. CTA with RMCA M1 occlsuion. S/P TNK and MT with TICI 2B recanalization. Admitted to neuroICU for post MT and post TNK monitoring. Plan Neurological ICP 12-21 LEONCIO drain 45cc R MCA M1 occlusion s/p MT with TICI 2B recanalization S/P TNK administration Malignant MCA syndrome Workup: - Repeat CTH 4 am 10/21 monitoring for increased brain swelling - S/P hemicrani on 10/20 with nsg Plan: - NSG following - Neurological checks q1hr - Pupillometer checks q1hr with recorded NPIs q1hr - ICP less than 22, SBP less than 160 - 3% HTS 250 cc bolus for ICP >22 for over 5 mins - Okay to start asa per NSGY 10/22 - Head of bed > 30?? - Avoid hypoglycemia, hyponatremia, and hyperthermia Hx Migraines - On Amitriptyline 50 mg BID and verapamil 120 mg daily at home. Hold amitriptyline. Cardiovascular HR 75-133, BP Min: 100/83 Max: 174/91 Hx Hypertension - On Metoprolol 25 mg BID at home resumed. Endocarditis, infective vs non-infective - Vegetation on aortic valve (L coronary cusp) seen on SARAH - Will start heparin drip pending NSGY clearance given [facility]. - Blood cultures ordered - UDS negative on admission - Rheumatology consulted given family history of sjogrens - SBP goal < 160 ICP <22. No PRNs ordered at this time. Nursing staff told to call MD if consistently elevated blood pressures. Respiratory AHRF - Intubated after hemicrani on 10/20. - On spontaneous mode - Extubation possibly tomorrow after monitoring for cerebral edema. - Aspiration precautions - Elevate head of bed - Maintain oxygen saturation > 92% - Monitor for respiratory distress Renal/Electrolytes Intake/Output Summary (Last 24 hours) at 10/23/2022 0646 Last data filed at 10/23/2022 0400 Gross per 24 hour Intake 1685.78 ml Output 1995 ml Net -309.22 ml Decreased UOP- improving - Increase TF to goal - Monitor intake and output Hypokalemia - Replete electrolytes as needed Infectious Disease Temp (24hrs), Av.3 ??F (37.4 ??C), Min:98.9 ??F (37.2 ??C), Max:99.6 ??F (37.6 ??C) Leukocytosis, downtrending Likely reactive, no fever. No ABx - f/u blood cultures - Monitor for fevers - Ramirez culture if febrile Gastrointestinal Hx GERD - Lansoprozole 30 mg ordered. - Diet: Goal TF Vital 55cc/hr, FWF [id number] - GI ppx: Lansoprozole - Last BM: 10/22 - BM regimen: senna and miralax Endocrine Patient was taking oral contraceptive home medication. - A1c 6.0 - Accuchecks Hematology Recent Labs Component Name 10/23/22 0129 WBC 16.7* HGB 7.8* HCT 23.8* PLTCOUNT 265 No active issues DVT ppx: SCDs, Lovenox on 10/22 per nsg. Hypercoaguable workup per stroke team. Musculoskeletal No active issues Disposition - PT/OT pending Feeds/Fluids: Tube Feeds Analgesia: fentanyl push Sedation: precedex Thromboprophylaxis: scd, lovenox HOB: HOB 30 degrees Ulcer Ppx: Lansozprozole 30 Glucose: wnl SBT: on PSV BR: senna and miralax Indwelling lines: 2 PIVs, drain, OGT, ETT De-escalation: ICU for at least 48 hours Family: mom and updated at bedside Paris Mohr MD Neurology Resident. PGY-3 [facility]. * Jing Powers RCP - 10/22/2022 2:20 PM CDT Transport Start Time: 14:10 Transport Assisted by 1 # of Therapists Transport From: 3N Transport To: PR 3rd MI Total Transport Time: 25 min Patient transported with HOB @ 30-45 degrees? Yes Oral care performed & documented within 4 hours of transport on life support? unknown Patient's oral cavity suctioned, including above the airway cuff, prior to transport? Yes * Eli Alcaraz MD - 10/22/2022 1:05 PM CDT Images from the original note were not included. Neurocritical Care Progress Note Consuelo Darby Age: [age] year old Date of : 1980 Date of Admission: 10/19/2022 Hospital Day: 3 Subjective History of Present Illness Consuelo Darby is a 41yo M who developed acute onset L sided weakness, L-sided sensory deficits, and dysarthria. L sided weakness resolved in route and dysarthria improved in route. On arrival patient noted to L gaze plasy, L hemainopsia, mild dysarthria, and extinction. NIHSS: 7. Patient was givenTNK and code IVR was activated. TICI2b revascularization of the R MCA M1 occlusion. 10/19: Cardene drip for maintaining SBP <140 post MT. 10/20: Taken for hemicrani with nsg. 10/21: Off levo, prop and fent. On Precedex. Tolerating PSV. Interval History: NAEON. CTH showed increased edema but no MLS. ICPs wnl. Tolerating PSV well. Objective BP 120/79 Pulse 96 Temp 99.6 ??F (37.6 ??C) (Axillary) Resp 20 Ht 1.626 m (5' 4 ) Wt 95.3kg (210 lb) SpO2 98% Temp (30hrs) Max:100 ??F (37.8 ??C) Body mass index is 36.05 kg/m??. Exam - Neurologic Intubated, sedated on precedex 0.4 Pupils reactive bilaterally Cough and gag present Does not open eyes (?eyelid apraxia) Moves LUE/LLE spont Follows commands on LUE/LLE RUE/RLE no movement noted, noxious deferred Labs: Reviewed. Imaging: Reviewed. Hospital Problems on Admission: Right middle cerebral artery stroke (CMS/HCC) (POA: Unknown) Acute cerebrovascular accident (CVA) due to embolism of right middle cerebral artery (CMS/HCC) (POA: Yes) Nihss score 9 (POA: Yes) Received intravenous tissue plasminogen activator (tPA) in emergency department (POA: Yes) GERD (gastroesophageal reflux disease) (POA: Yes) Hemianopsia (POA: Yes) Weakness (POA: Yes) Left-sided sensory deficit present (POA: Yes) Gaze palsy (POA: Yes) Migraine (POA: Unknown) Hypertension (POA: Unknown) Assessment Consuelo Darby is a 41 year old female presenting with R gaze preference, L hemianopsia, L arm and leg hemiparesis, and L extinction. CTA with RMCA M1 occlsuion. S/P TNK and MT with TICI 2B recanalization. Admitted to neuroICU for post MT and post TNK monitoring. Plan Neurological R MCA M1 occlusion s/p MT with TICI 2B recanalization S/P TNK administration Malignant MCA syndrome Workup: - Repeat CTH 4 am 10/21 monitoring for increased brain swelling - S/P hemicrani on 10/20 with nsg Plan: - NSG following - Neurological checks q1hr - Pupillometer checks q1hr with recorded NPIs q1hr - ICP less than 22, SBP less than 160 - 3% HTS 250 cc bolus for ICP >22 for over 5 mins - Okay to start asa per NSGY 10/22 - Head of bed > 30?? - Avoid hypoglycemia, hyponatremia, and hyperthermia Hx Migraines - On Amitriptyline 50 mg BID and verapamil 120 mg daily at home. Hold amitriptyline. Cardiovascular Pulse Min: 75 Max: 147, BP Min: 100/83 Max: 174/91 Hx Hypertension - On Metoprolol 25 mg BID at home resumed. - SBP goal < 160 ICP <22. No PRNs ordered at this time. Nursing staff told to call MD if consistently elevated blood pressures. Respiratory AHRF - Intubated after hemicrani on 10/20. - On spontaneous mode - Extubation possibly tomorrow after monitoring for cerebral edema. - Aspiration precautions - Elevate head of bed - Maintain oxygen saturation > 92% - Monitor for respiratory distress Renal/Electrolytes Intake/Output Summary (Last 24 hours) at 10/22/2022 1305 Last data filed at 10/22/2022 1200 Gross per 24 hour Intake 1883.52 ml Output 780 ml Net 1103.52 ml Decreased UOP - Bolus isolyte 500 ml - Increase TF to goal - Monitor intake and output - Replete electrolytes as needed Infectious Disease Temp (24hrs), Av.3 ??F (37.4 ??C), Min:98.8 ??F (37.1 ??C), Max:100 ??F (37.8 ??C) Leukocytosis, stable Likely reactive, no fever. No ABx - Monitor for fevers - Ramirez culture if febrile Gastrointestinal Hx GERD - Lansoprozole 30 mg ordered. - Diet: Goal TF - GI ppx: Lansoprozole - Last BM: prior to admission - BM regimen: senna and miralax Endocrine Patient was taking oral contraceptive home medication. - A1c 6.0 - Accuchecks Hematology Recent Labs Component Name 10/21/22 3027 10/21/22 0753 WBC 18.4* 18.6* HGB 8.1* 9.4* HCT 25.1* 27.9* PLTCOUNT - 259 No active issues DVT ppx: SCDs, Lovenox on 10/22 per nsg. Hypercoaguable workup per stroke team. Musculoskeletal No active issues Disposition - PT/OT pending Feeds/Fluids: Tube Feeds Analgesia: fentanyl push Sedation: precedex Thromboprophylaxis: scd, lovenox HOB: HOB 30 degrees Ulcer Ppx: Lansozprozole 30 Glucose: wnl SBT: on PSV BR: senna and miralax Indwelling lines: 2 PIVs, drain, OGT, ETT De-escalation: ICU for at least 48 hours Family: best friend updated at bedside Eli Alcaraz MD Neurology Resident. [facility]. Associated attestation - Dary Garvey MD - 10/22/2022 4:36 PM CDT Neurologic Critical Care Attending I spent 35 minutes in full attendance with this critically-ill patient. Time spent was exclusive ofseparately billed procedures, treating other patients, and teaching time. I have reviewed and agreewith resident/medical student documentation. The patient is at high risk for complications and morbidity or mortality. The patient is criticallyill with vital organ impairment of failure with high probability of imminent or life-threatening deterioration in the patient's condition. Critical care was necessary to treat or prevent life-threatening deterioration of the following: Right middle cerebral artery stroke (CMS/HCC) (POA: Unknown) Acute cerebrovascular accident (CVA) due to embolism of right middle cerebral artery (CMS/HCC) (POA: Yes) Nihss score 9 (POA: Yes) Received intravenous tissue plasminogen activator (tPA) in emergency department (POA: Yes) GERD (gastroesophageal reflux disease) (POA: Yes) Hemianopsia (POA: Yes) Weakness (POA: Yes) Left-sided sensory deficit present (POA: Yes) Gaze palsy (POA: Yes) Migraine (POA: Unknown) Hypertension (POA: Unknown) The plan of care other than mentioned in resident/medical student note consists of: 1. Rt MCA infarct. Brain compression s/p DHC Q1NC, NPi Appreciate NSGY recs Secondary stroke prevention/workup per stroke team Keep ICP < 22, if > 22 and > 5 minutes, aminister 250cc 3% NACL CTH showed more cerebral edema this am Repeat CTH @ 4am tmr SBP < 180, MAP > 65 for now, will raise SBP cap if clinical signs of worsening cerebral edema 2. Acute resp insufficiency. SBT. Will not extubate given potential for more cerebral edema. Vent bundles 3. Dysphagia. TF advance to full 4. Monitor UOP, replete lytes 5. Leukocytosis. Likely reactive, CTM 6. Neurogenic bladder. Flomax, cont straight cath. Prefer NO puentes insertion PT OT, OOB today Dary Garvey MD Neurologic Critical Care Attending 10/22/2022 * Jackelyn Flores RN - 10/22/2022 11:25 AM CDT Problem: Safety related to restraint use Goal: Absence of injury while restrained Outcome: Progressing Problem: Fall Risk Goal: Fall risk and fall related injury risk are minimized (interventions related to the fall risk can be found in the flowsheet documentation) Outcome: Progressing Problem: Skin Integrity Goal: Skin integrity is maintained or improved Outcome: Progressing Problem: Pain/Discomfort Goal: Patient exhibits reduced pain/discomfort as evidenced by pain scores Outcome: Progressing Goal: Patient uses pharmacological and non-pharmacological pain management strategies. Outcome: Progressing Goal: Patient verbalizes acceptable level of pain relief and ability to engage in desired activity. Outcome: Progressing Problem: Neurological Deficit Goal: Neurological status is stable or improving Outcome: Progressing Problem: Hemodynamic Status/Cardiac Output Goal: Patient has stable vital signs and fluid balance Outcome: Progressing Problem: Oxygenation/Respiratory Function Goal: Respiratory rate/effort will be within specified limits Outcome: Progressing Problem: Mobility Goal: Patient's mobility/activity will be maintained as optimum level for age, diagnosis and physical limitations Outcome: Progressing Goal: Continuum of care needs are further met through referral to outpatient services when appropriate. Outcome: Progressing Goal: Patient reports the ability to perform Activities of Daily Living. Outcome: Progressing Problem: Communication Impairment/Dysarthria Goal: Ability to express needs and understand communication Outcome: Progressing Problem: Nutrition Goal: Nutritional status is improving Outcome: Progressing Problem: Aspiration Precautions Goal: Patient's risk of aspiration is minimized Outcome: Progressing Problem: Glycemic Control Goal: Clinical indication of glycemia balance is achieved Outcome: Progressing Problem: Knowledge Deficit,Education,Discharge Plan Goal: The patient/family will understand cerebrovascular disease and its symptoms, treatment and management Outcome: Progressing Problem: Oral Intake: Inadequate oral intake Goal: Total intake will meet estimated nutrient needs Outcome: Progressing Problem: Swallowing Goal: LTG - Patient will tolerate the least restrictive diet consistency to allow for safe consumption of daily meals Outcome: Progressing Problem: Transfers Goal: STG - Transfer from bed to chair Outcome: Progressing Problem: Risk for Violence: Self-Directed or Other Directed Description: Diagnosis: Risk for self-directed Violence or Risk for Directed Violence Risk Factors: Biochemical/neurologic imbalances, impulsivity, manic excitement, psychotic symptomatology, rage reaction, restlessness Possibly Evidenced By: agitated behaviors, delusional thinking, hallucinations, loud/threatening/profane speech, poor impulse control, provocative behaviors, verbal threats against others, verbal threats against self Goal: Patient will verbalize control of feelings. Outcome: Progressing Goal: Patient will respond to interventions when potential or actual loss of control occurs. Outcome: Progressing Goal: Patient will refrain from provoking others to physical harm. Outcome: Progressing Goal: Patient will display nonviolent behaviors toward others in the hospital, with the aid of medications and nursing interventions. Outcome: Progressing Goal: Patient will seek help when experiencing aggressive impulses. Outcome: Progressing Goal: Patient will refrain from verbal threats and loud, profrane language toward others. Outcome: Progressing Goal: Patient will be safe and free from injury. Outcome: Progressing Problem: ELOPEMENT/ABDUCTION Goal: Risk for elopement &/or abduction during hospitalization is minimized Outcome: Adequate for Discharge * Yared Chavira - 10/22/2022 11:02 AM CDT Civil Technician provided pastoral care and support to family at patient's bedside - patient's and older sister. With permission, Civil Technician provided compassionate touch and prayed for patient and her family. Yared Chavira 10/22/2022 11:03 AM * Jarvis Gagnon MD - 10/22/2022 9:01 AM CDT Neurosurgery Daily Progress Note Consuelo Darby 10/22/22 Hospital Day: 3 Subjective: No acute overnight events. Has remained intubated in the ICU. ICPs to high teens, otherwise stable neurologic exams. Objective: T: 99.2 ??F (37.3 ??C) [Temp Min: 98.8 ??F (37.1 ??C) Max: 100 ??F (37.8 ??C)] BP: 122/69[BP Min: 112/61 Max: 152/80] MAP: 85[MAP (mmHg) Min: 76 Max: 106] HR: 102[Pulse Min: 75 Max: 133] RR: 19[Resp Min: 14 Max: 33] Sat: 95 %[SpO2 Min: 94 % Max: 100 %] ICP: 17 mmHg[ICP #1 Min: 13 mmHg Max: 23 mmHg] Input/Output: 10/21 0701 - 10/22 0700 In: 1629.7 [I.V.:664.7] Out: 780 [Urine:700; Drains:80] LEONCIO/Other Drain: 80 cc of ss fluid output Respiratory: ETT PEEP/CPAP: 5 cm H20 Pressure Support: 5 cm H2O OBSERVED PEAK INSPIRATORY PRESSURE (cm H2O): 12 cm H2O SET TIDAL VOLUME (mL): 450 ML Spontaneous Tidal Volume (mL): 454 ML EXHALED TIDAL VOLUME (ml): 454 ml Labs: Recent Labs Component Name 10/21/22 2316 10/21/22 0753 WBC 18.4* 18.6* HGB 8.1* 9.4* HCT 25.1* 27.9* PLTCOUNT - 259 Recent Labs Component Name 10/21/22 2316 NA 142 POTASSIUM 3.7 CO2 20* BUN 16 CREATININE 0.65 CALCIUM 8.0* GLUCOSE 120* Recent Labs Component Name 10/20/22 0302 INR 1.1 PTT 24.4 Imaging: CT head wo contrast 10/20/2022 Interval postsurgical changes of decompressive right hemicraniectomy with ICP monitor and subdural drain in place. 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 Diet: DIET TUBE FEEDING CONTINUOUS DIET NPO Except: NO EXCEPTIONS MEDICATIONS FOR CURRENT ENCOUNTER: ?? SCHEDULED MEDICATIONS: ?? *Hold/Avoid Medication, Other, 0800 and 1999 ?? *Hold/Avoid Medication, Other, DIRECTED ?? 0.9% NaCl injection 3 mL, Intracatheter, q8h ?? 0.9% NaCl injection 3 mL, Intracatheter, q8h ?? artificial tears ophthalmic ointment, Each Eye, q8h ?? chlorhexidine (Peridex) 0.12 % oral solution 15 mL, Mouth/Throat, BID ?? enoxaparin (Lovenox) injection 40 mg, Subcutaneous, QDAY ?? lansoprazole (Prevacid) suspension 30 mg, Enteral Tube, QDAY BEFORE BREAKFAST ?? loratadine (Claritin) tablet 10 mg, Enteral Tube, QDAY ?? metoprolol tartrate IR (Lopressor) tablet 25 mg, Enteral Tube, BID ?? polyethylene glycol 3350 (Miralax) packet 17 g, Enteral Tube, QDAY ?? potassium - sodium phosphates (Phos-Nak) powder 2 packet, Enteral Tube, TID WC ?? senna-docusate (Senokot-S) tablet 1 tablet, Enteral Tube, QDAY ?? tamsulosin (Flomax) capsule 0.4 mg, Oral, QDAY ?? verapamil (Isoptin) tablet 40 mg, Enteral Tube, q8h ?? vitamin D3 (Cholecalciferol) 25 MCG (1000 UNITS) tablet 2,000 Units, Enteral Tube, QDAY ?? CONTINUOUS MEDICATIONS: ?? dexmedeTOMIDine (Precedex) 400 mcg in 100 mL NS infusion premix, Intravenous, Continuous ?? PRN MEDICATIONS: ?? Or ?? 0.9% NaCl injection 1-10 mL, Intracatheter, PRN ?? 0.9% NaCl injection 3 mL, Intracatheter, PRN ?? dextrose 10 % IV bolus, Intravenous, PRN ?? dextrose 10 % IV bolus, Intravenous, PRN ?? fentaNYL (PF) (Sublimaze) injection 50 mcg, Intravenous, q2h PRN ?? glucagon (Glucagen) injection 1 mg, Subcutaneous, PRN ?? glucose (Diabetic Use) (Dex4 Glucose) oral liquid, Oral, PRN ?? glucose (Diabetic Use) oral gel, Oral, PRN ?? glucose chew tablet 4 tablet, Oral, PRN ?? vancomycin (Vancocin) injection, , PRN HEENT: Incision CDI with dressing in place, scalp flap is full, LEONCIO to bulb suction, ICPm in place Neuro: Intubated, spontaneous eye opening, right gaze preference, right UE and LE moving spontaneously with good strength against resistance, left sided hemiparesis 1/5, sensation intact to noxious stimulation Assessment: 41 year old female with PMHx of GERD, tobacco use who presented on 10/19 with left sided weakness (NIHSS:7) secondary to right MCA territory infarct. CT angiogram of the brain right MCA M1 occlusion s/p mechanical thrombectomy with R M1 recanalization and TICI2b. CT 10/20/22 with worsening edema and midline shift resulting in progression to malignant MCA infarction now s/p right decompressive hemicraniectomy and ICPm insertion 10/[address] Marquez. Following the operation, she was transferred intubated to the ICU for close monitoring. Plan: Serial neuro checks q1hr,??HOB >??30 BP parameters per neuro ICU team, avoid hypertension Keep INR??<??1.3, PLts >100.000 ICP goal < 20 mmHg, maintain PbtO2 (tissue oxygenation) between 25 to 50 mm Hg Regular wound care, LEONCIO to bulb suction - empty/document q2hrs and PRN Ok for prophylactic heparin sc and ASA 81mg daily as needed per primary team Contact our service immediately with any changes in neurological examination or VS instability Overall care per neuro ICU team Jarvis Gagnon MD 9:01 AM 10/22/22 * Emir Vail MD - 10/22/2022 6:46 AM CDT I have seen and examined the patient with the resident and I agree with the findings and plan of care as documented by the resident. Date of Service: 10/22/2022 Emir Vail MD Multidisciplinary rounds were held at 9am and the patient's care and recovery plan were reviewed and developed with the assembled team. Consuelo Darby is a 41 year old 41 year old??with GERD, tobacco, presented on 10/19 with Right MCA syndrome s/p TNK. CTA 1 M1 occlusion. S/P mechanical thrombectomy with R M1 recanalization and TICI2b. CT 10/20/22 with edema and mildshift. On exam, lid apraxia and following briskly on right; slight LLE movement. Hx of OCP use. S/Pdecompressive right hemicraniectomy. Mechanism of infarct is ESUS. - Close neurological monitoring. - NSGY following - Repeat CT at 0400 daily or if neurologic decline - Holding ASA > Will start if okay will NSGY - MR pending - Protein c, s, lupus anticoagulant panel ordered -will need outpatient work-up Problem List Right middle cerebral artery stroke (CMS/HCC) (POA: Unknown) Acute cerebrovascular accident (CVA) due to embolism of right middle cerebral artery (CMS/HCC) (POA: Yes) Nihss score 9 (POA: Yes) Received intravenous tissue plasminogen activator (tPA) in emergency department (POA: Yes) GERD (gastroesophageal reflux disease) (POA: Yes) Hemianopsia (POA: Yes) Weakness (POA: Yes) Left-sided sensory deficit present (POA: Yes) Gaze palsy (POA: Yes) Migraine (POA: Unknown) Hypertension (POA: Unknown) See Resident note for the remaining problem specific plan. 3 MEDICATIONS FOR CURRENT ENCOUNTER: SCHEDULED MEDICATIONS: *Hold/Avoid Medication, Other, 0800 and 2000 *Hold/Avoid Medication, Other, DIRECTED 0.9% NaCl injection 3 mL, Intracatheter, q8h 0.9% NaCl injection 3 mL, Intracatheter, q8h artificial tears ophthalmic ointment, Each Eye, q8h chlorhexidine (Peridex) 0.12 % oral solution 15 mL, Mouth/Throat, BID enoxaparin (Lovenox) injection 40 mg, Subcutaneous, QDAY lansoprazole (Prevacid) suspension 30 mg, Enteral Tube, QDAY BEFORE BREAKFAST loratadine (Claritin) tablet 10 mg, Enteral Tube, QDAY metoprolol tartrate IR (Lopressor) tablet 25 mg, Enteral Tube, BID polyethylene glycol 3350 (Miralax) packet 17 g, Enteral Tube, QDAY potassium - sodium phosphates (Phos-Nak) powder 2 packet, Enteral Tube, TID WC senna-docusate (Senokot-S) tablet 1 tablet, Enteral Tube, QDAY tamsulosin (Flomax) capsule 0.4 mg, Oral, QDAY verapamil (Isoptin) tablet 40 mg, Enteral Tube, q8h vitamin D3 (Cholecalciferol) 25 MCG (1000 UNITS) tablet 2,000 Units, Enteral Tube, QDAY ?? [] iopamidol (Isovue 370) 76 % contrast, Intravenous, Contrast - Once CONTINUOUS MEDICATIONS: dexmedeTOMIDine (Precedex) 400 mcg in 100 mL NS infusion premix, Intravenous, Continuous ?? norepinephrine (Levophed) 8 mg/250 ml D5 infusion premix, Intravenous, Continuous PRN MEDICATIONS: Or 0.9% NaCl injection 1-10 mL, Intracatheter, PRN 0.9% NaCl injection 3 mL, Intracatheter, PRN dextrose 10 % IV bolus, Intravenous, PRN dextrose 10 % IV bolus, Intravenous, PRN fentaNYL (PF) (Sublimaze) injection 50 mcg, Intravenous, q2h PRN glucagon (Glucagen) injection 1 mg, Subcutaneous, PRN glucose (Diabetic Use) (Dex4 Glucose) oral liquid, Oral, PRN glucose (Diabetic Use) oral gel, Oral, PRN glucose chew tablet 4 tablet, Oral, PRN ?? vancomycin (Vancocin) injection, , PRN Patient Vitals for the past 24 hrs: Temp Pulse Resp BP 10/22/22 0400 99 ??F (37.2 ??C) 79 19 113/63 10/22/22 0331 -- 88 22 -- 10/22/22 0330 -- 88 -- -- 10/22/22 0300 -- 76 22 119/64 10/22/22 0200 98.8 ??F (37.1 ??C) 77 21 120/64 10/22/22 0100 -- 78 19 -- 10/22/22 0026 -- 79 21 -- 10/22/22 0019 -- 108 -- -- 10/22/22 0000 98.8 ??F (37.1 ??C) 80 19 117/63 10/21/22 2300 -- 78 17 113/60 10/21/22 2200 99.5 ??F (37.5 ??C) 87 19 128/79 10/21/22 2100 -- 78 18 115/69 10/21/222028 -- 84 -- 126/66 10/21/22 2000 99.1 ??F (37.3 ??C) 96 22 128/72 10/21/22 1943 -- 89 -- -- 10/21/22 1900 -- 86 21 119/67 10/21/22 1845 -- 90 22 124/65 10/21/22 1830 -- 88 22 118/63 10/21/22 1815 -- 94 22 117/60 10/21/22 1800 100 ??F (37.8 ??C) 87 20 120/67 10/21/22 1745 -- 92 19 119/64 10/21/22 1730 -- 92 19 122/64 10/21/22 1715 -- 90 19 118/66 10/21/22 1700 -- 89 19 115/66 10/21/22 1645 -- 86 19 116/63 10/21/22 1630 -- 89 19 112/61 10/21/22 1615 -- (!) 129 20 129/70 10/21/22 1600 100 ??F (37.8 ??C) 84 18 114/68 10/21/22 1545 -- 89 20 119/66 10/21/22 1530 -- 89 19 124/68 10/21/22 1515 -- 89 19 117/64 10/21/22 1500 -- 90 18 128/66 10/21/22 1445 -- 93 20 125/71 10/21/22 1430 -- 98 19 127/74 10/21/22 1415 -- 91 19 120/68 10/21/22 1400 -- 93 19 131/74 10/21/22 1345 -- 96 19 128/71 10/21/22 1330 -- 92 19 129/72 10/21/22 1315 -- 89 18 124/67 10/21/22 1300 -- (!) 133 14 139/78 10/21/22 1245 -- 91 19 126/74 10/21/22 1230 -- 87 18 126/72 10/21/22 1215 -- 98 14 128/76 10/21/22 1200 99.4 ??F (37.4 ??C) 87 19 125/73 10/21/22 1145 -- 84 18 127/72 10/21/22 1130 -- 85 18 125/75 10/21/22 1115 -- 90 19 122/69 10/21/22 1100 -- 85 18 126/71 10/21/22 1045 -- 86 17 121/70 10/21/22 1030 -- 86 17 126/72 10/21/22 1015 -- 89 16 128/76 10/21/22 1000 99.1 ??F (37.3 ??C) 92 17 128/72 10/21/22 0955 -- 93 17 132/77 10/21/22 0950 -- 94 24 132/72 10/21/22 0945 -- 91 17 130/80 10/21/22 0940 -- 94 17 132/77 10/21/22 0935 -- 102 19 131/75 10/21/22 0930 -- 100 17 137/76 10/21/22 0925 -- 101 17 146/77 10/21/22 0920 -- 94 17 152/80 10/21/22 0915 -- 97 31 148/76 10/21/22 0910 -- 98 17 143/78 10/21/22 0905 -- 97 19 123/70 10/21/22 0900 -- 97 18 144/74 10/21/22 0855 -- (!) 110 (!) 32 141/75 10/21/22 0850 -- 109 16 146/80 10/21/22 0845 -- 100 (!) 33 152/78 10/21/22 0840 -- 93 16 148/75 10/21/22 0835 -- 98 16 147/77 10/21/22 0830 -- 98 17 149/77 10/21/22 0825 -- 96 17 143/79 10/21/22 0820 -- 101 18 146/77 10/21/22 0815 -- 93 16 149/84 10/21/22 0810 -- 98 17 148/81 10/21/22 0805 -- 104 18 146/73 10/21/22 0800 98.8 ??F (37.1 ??C) (!) 118 (!) 35 144/70 10/21/22 0755 -- 106 17 158/82 10/21/22 0750 -- 105 17 154/80 10/21/22 0745 -- 107 17 149/78 10/21/22 0740 -- 106 17 144/80 10/21/22 0735 -- 105 17 148/77 10/21/22 0730 -- 104 16 154/74 10/21/22 0725 -- 103 16 149/79 10/21/22 0720 -- 103 16 146/80 10/21/22 0715 -- 102 17 154/77 10/21/22 0710 -- 102 17 148/78 10/21/22 0705 -- 102 16 145/74 10/21/22 0700 -- 103 17 153/75 Recent Labs Component Name 10/21/22 2316 10/21/22 0459 10/20/22 0302 NA 142 142 138 CL 111* 115* 108* CO2 20* 16* 21* BUN 16 12 6* CREATININE 0.65 0.64 0.50* CALCIUM 8.0* 8.2* 8.2* PHOS 2.7* 2.2* - Recent Labs Component Name 10/22/22 0153 10/21/22 2316 10/21/22 0753 10/21/22 0459 WBC - 18.4* 18.6* 18.7* RBC - 2.62* 3.01* 2.98* HGB - 8.1* 9.4* 9.4* HCT - 25.1* 27.9* 27.8* PLT 199 - - - Recent Labs Component Name 10/20/22 0302 06/15/22 0757 CHOL 173 204* TRIG 201* 251* HDL 42 37* LDLCALC 91 117* Recent Labs Component Name 10/20/22 1015 HGBA1C 6.0* EAG 126 Recent Labs Component Name 10/21/22 0753 10/21/22 0459 10/20/22 0302 PLTCOUNT 259 260 292 * Stephanie Hester MD - 10/22/2022 2:25 AM CDT Stroke Service Daily Progress Note Consuelo Darby Age: [age] year old Date of : 1980 Date of Admission: 10/19/2022 Hospital Day: 3 Subjective Consuelo Darby is a 41yo M who developed acute onset L sided weakness, L-sided sensory deficits, and dysarthria. L sided weakness resolved in route and dysarthria improved in route. On arrival patient noted to L gautam plasy, L hemainopsia, mild dysarthria, and extinction. NIHSS: 7. Patient was givenTNK and code IVR was activated. TICI2b revascularization of the R MCA M1 occlusion. Admitted to ICUfor post-thrombectomy monitoring. Repeat CTH showing edema in R MCA territory. Will CTM closely with repeat CT H in the AM tmmrw. On 10/20/22 patient taken for hemicraniectomy, post-op CTH showing stable midline shift. Initial hypercoag work up negative repeat in [address], QDay CTH. NSGY following. CTH 10/22 showing large R MCA infarct, minimal midline shift on my read. Final read pending. Starting lovenox. ?? Medical history significant for hemiplegic migraine, GERD, GENESIS ?? Interval History: NAEON. Repeat CTH showing large R MCA infarct, minimal midline shift on my read. Final read pending. Objective Patient Vitals for the past 24 hrs: BP Temp Temp src Pulse Resp SpO2 10/22/22 0100 -- -- -- 78 19 99 % 10/22/22 0026 -- -- -- 79 21 98 % 10/22/22 0019 -- -- -- 108 -- 98 % 10/22/22 0000 117/63 98.8 ??F (37.1 ??C) Axillary 80 19 98 % 10/21/22 2300 113/60 -- -- 78 17 97 % 10/21/22 2200 128/79 99.5 ??F (37.5 ??C) Axillary 87 19 98 % 10/21/22 2100 115/69 -- -- 78 18 97 % 10/21/222028 126/66 -- -- 84 -- -- 10/21/221999 128/72 99.1 ??F (37.3 ??C) Axillary 96 22 97 % 10/21/22 1943 -- -- -- 89 -- 96 % 10/21/22 1900 119/67 -- -- 86 21 95 % 10/21/22 1845 124/65 -- -- 90 22 95 % 10/21/22 1830 118/63 -- -- 88 22 95 % 10/21/22 1815 117/60 -- -- 94 22 94 % 10/21/22 1800 120/67 100 ??F (37.8 ??C) Axillary 87 20 97 % 10/21/22 1745 119/64 -- -- 92 19 96 % 10/21/22 1730 122/64 -- -- 92 19 97 % 10/21/22 1715 118/66 -- -- 90 19 97 % 10/21/22 1700 115/66 -- -- 89 19 97 % 10/21/22 1645 116/63 -- -- 86 19 96 % 10/21/22 1630 112/61 -- -- 89 19 96 % 10/21/22 1615 129/70 -- -- (!) 129 20 96 % 10/21/22 1600 114/68 100 ??F (37.8 ??C) Axillary 84 18 96 % 10/21/22 1545 119/66 -- -- 89 20 97 % 10/21/22 1530 124/68 -- -- 89 19 97 % 10/21/22 1515 117/64 -- -- 89 19 97 % 10/21/22 1500 128/66 -- -- 90 18 97 % 10/21/22 1445 125/71 -- -- 93 20 97 % 10/21/22 1430 127/74 -- -- 98 19 97 % 10/21/22 1415 120/68 -- -- 91 19 95 % 10/21/22 1400 131/74 -- -- 93 19 98 % 10/21/22 1345 128/71 -- -- 96 19 98 % 10/21/22 1330 129/72 -- -- 92 19 98 % 10/21/22 1315 124/67 -- -- 89 18 98 % 10/21/22 1300 139/78 -- -- (!) 133 14 94 % 10/21/22 1245 126/74 -- -- 91 19 98 % 10/21/22 1230 126/72 -- -- 87 18 98 % 10/21/22 1215 128/76 -- -- 98 14 96 % 10/21/22 1200 125/73 99.4 ??F (37.4 ??C) Axillary 87 19 98 % 10/21/22 1145 127/72 -- -- 84 18 98 % 10/21/22 1130 125/75 -- -- 85 18 97 % 10/21/22 1115 122/69 -- -- 90 19 98 % 10/21/22 1100 126/71 -- -- 85 18 98 % 10/21/22 1045 121/70 -- -- 86 17 98 % 10/21/22 1030 126/72 -- -- 86 17 98 % 10/21/22 1015 128/76 -- -- 89 16 96 % 10/21/22 1000 128/72 99.1 ??F (37.3 ??C) Axillary 92 17 98 % 10/21/22 0955 132/77 -- -- 93 17 98 % 10/21/22 0950 132/72 -- -- 94 24 97 % 10/21/22 0945 130/80 -- -- 91 17 98 % 10/21/22 0940 132/77 -- -- 94 17 97 % 10/21/22 0935 131/75 -- -- 102 19 97 % 10/21/22 0930 137/76 -- -- 100 17 97 % 10/21/22 0925 146/77 -- -- 101 17 97 % 10/21/22 0920 152/80 -- -- 94 17 97 % 10/21/22 0915 148/76 -- -- 97 31 97 % 10/21/22 0910 143/78 -- -- 98 17 97 % 10/21/22 0905 123/70 -- -- 97 19 96 % 10/21/22 0900 144/74 -- -- 97 18 96 % 10/21/22 0855 141/75 -- -- (!) 110 (!) 32 96 % 10/21/22 0850 146/80 -- -- 109 16 97 % 10/21/22 0845 152/78 -- -- 100 (!) 33 98 % 10/21/22 0840 148/75 -- -- 93 16 97 % 10/21/22 0835 147/77 -- -- 98 16 97 % 10/21/22 0830 149/77 -- -- 98 17 97 % 10/21/22 0825 143/79 -- -- 96 17 97 % 08/12/23 0820 146/77 -- -- 101 18 100 % 10/21/22 0815 149/84 -- -- 93 16 97 % 10/21/22 0810 148/81 -- -- 98 17 96 % 10/21/22 0805 146/73 -- -- 104 18 95 % 10/21/22 0800 144/70 98.8 ??F (37.1 ??C) Axillary (!) 118 (!) 35 97 % 10/21/22 0755 158/82 -- -- 106 17 97 % 10/21/22 0750 154/80 -- -- 105 17 96 % 10/21/22 0745 149/78 -- -- 107 17 97 % 10/21/22 0740 144/80 -- -- 106 17 97 % 10/21/22 0735 148/77 -- -- 105 17 97 % 10/21/22 0730 154/74 -- -- 104 16 97 % 10/21/22 0725 149/79 -- -- 103 16 97 % 10/21/22 0720 146/80 -- -- 103 16 97 % 10/21/22 0715 154/77 -- -- 102 17 97 % 10/21/22 0710 148/78 -- -- 102 17 97 % 10/21/22 0705 145/74 -- -- 102 16 97 % 10/21/22 0700 153/75 -- -- 103 17 97 % 10/21/22 0600 140/78 (!) 100.4 ??F (38 ??C) Bladder 108 28 97 % 10/21/22 0555 144/77 (!) 100.4 ??F (38 ??C) -- 105 30 97 % 10/21/22 0531 147/77 -- -- -- -- -- 10/21/22 0510 139/76 (!) 100.2 ??F (37.9 ??C) -- 103 23 97 % 10/21/22 0506 132/72 -- -- -- -- -- 10/21/22 0505 132/72 (!) 100.2 ??F (37.9 ??C) -- (!) 111 25 100 % 10/21/22 0500 142/68 (!) 100.2 ??F (37.9 ??C) Bladder 102 18 97 % 10/21/22 0400 130/63 (!) 100.4 ??F (38 ??C) -- 98 30 98 % 10/21/22 0300 130/73 (!) 100.4 ??F (38 ??C) Bladder 92 (!) 33 98 % 10/21/22 0236 -- (!) 100.4 ??F (38 ??C) -- 91 16 98 % Intake/Output Summary (Last 24 hours) at 10/22/2022 0225 Last data filed at 10/22/2022 0000 Gross per 24 hour Intake 1279.66 ml Output 820 ml Net 459.66 ml Exam: Cortical Function Mental Status Awake, alert, follows commands Orientation Aphasia Language Aphasia Visual Powell Intact bilaterally to confrontation Neglect No visual neglect noted, no tactile neglect noted Cranial Nerves II Pupils 3 mm and bilaterally reactive to light. Fundoscopic exam not performed. VIII Hearing is intact bilaterally to finger rub. III/IV/ Extraocular muscles intact. No diplopia, ptosis, nystagmus or convergence abnormalities noted. IX/X Palate elevated symmetrically without phonation abnormalities noted. V Facial sensation symmetric to light touch and intact bilaterally. Corneal reflex not examined. XIHead turning and shoulder shrug are intact. VII No facial palsy noted. XII Tongue is midline with normal movements and no atrophy noted. Motor Function Movement No abnormalities noted Bulk No abnormalities noted Tone No abnormalities noted Moves b/l LE, moves RUE, did not move LUE, but in brace Sensory Light Touch REYNOLD, aphsic Noxious Stimuli Symmetric and intact bilaterally Temperature Not tested Pallesthesia Not tested Cerebellar FNF DALE HKS Right REYNOLD Deferred REYNOLD Left REYNOLD Deferred REYNOLD Gait Deferred Labs: Recent Labs Component Name 10/22/22 0153 10/21/22231510/21/22 0753 10/21/22 0459 WBC - 18.4* 18.6* 18.7* RBC - 2.62* 3.01* 2.98* HGB - 8.1* 9.4* 9.4* HCT - 25.1* 27.9* 27.8* PLT 199 - - - Recent Labs Component Name 10/21/22 2316 10/21/229 10/20/22 0302 NA 142 142 138 CL 111* 115* 108* CO2 20* 16* 21* BUN 16 12 6* CREATININE 0.65 0.64 0.50* CALCIUM 8.0* 8.2* 8.2* No results for input(s): MG in the last 02194 hours. Recent Labs Component Name 10/21/22 2316 10/21/22 0459 PHOS 2.7* 2.2* Recent Labs Component Name 10/20/22 0302 10/19/22 0824 10/19/22 0809 PT 13.6 12.3 - INR 1.1 0.9 0.9 PTT 24.4 - - No results for input(s): A1C in the last 05428 hours. Recent Labs Component Name 10/20/22 0302 06/15/22 0757 CHOL 173 204* HDL 42 37* LDLCALC 91 117* TRIG 201* 251* Recent Labs Component Name 06/15/22 0757 TSH 1.873 No results for input(s): CKMB, CKTOTAL, CKMB, TROPONINI, BNP in the last [address] ANGIO BRAIN NECK STROKE Result Date: 10/19/2022 PROCEDURE: CT ANGIO BRAIN NECK STROKE, DATE/TIME OF EXAM: 10/19/2022 8:16 AM, LOCATION [facility] INDICATION: Code Stroke ADDITIONAL CLINICAL INFORMATION: Ordering Provider Reason For Exam: Technologist Note: Additional: EXAMINATION: 1. Computed tomographic (CT) angiography of the head with contrast 2. CT angiography of the neck with contrast TECHNIQUE: CT angiography of the headand neck was obtained after the uneventful administration [...] a concurrent noncontrasted head CT for detailed intracranialfindings including findings suggesting an acute right MCA [...] arteries are patent. The basilar artery is patentpatent. 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 IMPRESSION: 1. [...] Lonnie Rae MD on 10/19/2022 8:[address] BRAIN - Stroke Result Date: 10/19/2022 PROCEDURE: CT BRAIN STROKE, DATE/TIME OF EXAM: 10/19/2022 8:04 AM, LOCATION [facility] INDICATION: Code Stroke ADDITIONAL CLINICAL INFORMATION: Ordering [...] of scott-white matter differentiation in the right frontotemporallobes and the right insula, concerning for an acute infarct. There is suggestion of a hyperdense right MCA likely represent acute thrombus (series 5 image 25). No acute intracranial hemorrhage or intra- or extra-axial fluid collections are identified. The ventricles are of normal size, shape, and morphology. The basal cisterns are patent. No mass effect or midline shift is seen. The scott-white mat ter differentiation is normal. The visualized portions of [...] Lonnie Rae MD on 10/19/2022 8:15 AM Right middle cerebral artery stroke (CMS/HCC) (POA: Unknown) Acute cerebrovascular accident (CVA) due to embolism of right middle cerebral artery (CMS/HCC) (POA: Yes) Nihss score 9 (POA: Yes) Received intravenous tissue plasminogen activator (tPA) in emergency department (POA: Yes) GERD (gastroesophageal reflux disease) (POA: Yes) Hemianopsia (POA: Yes) Weakness (POA: Yes) Left-sided sensory deficit present (POA: Yes) Gaze palsy (POA: Yes) Migraine (POA: Unknown) Hypertension (POA: Unknown) Assessment ??Consuelo Darby is a 41 year old female presenting for left sided sensory loss, left gaze palsy,L hemianopsia, and left extinction. Given TNK and taken for mechanical thrombectomy. Will admit to neuro ICU for post-thrombectomy monitoring. Repeat CTH showing R MCA infarct, midline shift. S/p hemicrani, monitoring BP and ICP. ?? Stroke Type: Ischemic Stroke Mechanism: ESUS ?? Plan ?? TIA/Stroke Workup; active - Patient will be admitted to neuro ICU under the stroke service. - s/p TICI2b revascularization, TNK - CTH, CTA H/N, MRI Brain, MRI H/N - TTE: wnl - SARAH + Loop - Qday CTH - HbA1C: 6.0, LDL: 91, Cardiac Enzymes; wnl - NPO until passes swallow - q1h vitals and neurological checks - SARAH, RF, factor V leiden, complement, protein c, s, lupus anticoagulant panel, repeat in 1 week ?? Blood Pressure Goals: SBP<160, map>70 ? If tPA given, - repeat CT Head or MR Head in 24 hours to evaluate for bleed - if negative at 24 hours, okay to resume aspirin ?? Core Measures TNK administration: yes Anti-thrombotic: holding in setting of TNK Statin: atorvastatin 80mg DVT prophylaxis: lovenox Swallow Evaluation: pending PT/OT Evaluation: pending Smoking cessation; will assistant corporation counsel: N/A ?? Neurological ?? R M1 ischemic stroke; active - Stroke will be primary - Post-thrombectomy monitoring - q1h vitals and neurological checks - Stat CT head for any change in neurological examination - MRI Brain or repeat CTH 24 hours post-TNK - Head of bed > 30?? - Avoid hypoglycemia, hyponatremia, and hyperthermia - Protein c, s, lupus anticoagulant panel ?? Core Measures TNK administration: yes Anti-thrombotic: holding in setting of edema, swelling Statin: atorvastatin 80mg DVT prophylaxis: SCD Swallow Evaluation: pending PT/OT Evaluation: pending Smoking cessation; will assistant corporation counsel: N/A Migraine - verapamil 40 TID Cardiovascular ? No acute issues ?? - 12-lead EKG - Cardiac markers x 3 - Transthoracic ECHO ordered - Blood pressure goal: SBP<180, map>70 - PRN hydralazine IV and labetalol IV for SBP > 180 - Hemodynamic monitoring ?? HTN: - home metop - PRN hydralazine, labetalol SBP <160 Respiratory ? #AHRF ??- potential extubation candidate per neuro ICU - Aspiration precautions - Elevate head of bed - Maintain oxygen saturation > 92% - Monitor for respiratory distress Gastrointestinal ? No acute issues ?? 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 No acute issues ?? - Monitor intake and output - Replete electrolytes as needed Hematology ? No acute issues ?? - Avoid unnecessary IM injections and arterial punctures during the first 24 hours post-tPA - Evaluate puncture sites for bleeding or hematoma - Evaluate emesis, secretions, stool, and urine for blood - No nasogastric tube insertions during the first 24 hours post-tPA - Transfuse for hemoglobin < 7.0 g/dL Endocrine ? Vit D deficiency - Vit D Infectious Disease ? No acute issues ?? - Monitor for fevers - Ramirez culture if febrile Musculoskeletal ? No acute issues Disposition ? - PT/OT pending ?? Individual Modifiable Risk Factors Hypertension: no Hyperlipidemia: no Diabetes: no Atrial Fibrillation: no Tobacco: no ?? Additional Hospital Problems: GENESIS: cont home amitriptyline HTN: home metoprolol 25mg Vit D Deficiency: Vit D ?? Stephnaie Hester MD Neurology Resident * Shauna Martines RN - 10/22/2022 1:44 AM CDT Problem: Safety related to restraint use Goal: Absence of injury while restrained Outcome: Progressing Problem: Fall Risk Goal: Fall risk and fall related injury risk are minimized (interventions related to the fall risk can be found in the flowsheet documentation) Outcome: Progressing Problem: Skin Integrity Goal: Skin integrity is maintained or improved Outcome: Progressing Problem: Pain/Discomfort Goal: Patient exhibits reduced pain/discomfort as evidenced by pain scores Outcome: Progressing Goal: Patient uses pharmacological and non-pharmacological pain management strategies. Outcome: Progressing Problem: Neurological Deficit Goal: Neurological status is stable or improving Outcome: Progressing Problem: Hemodynamic Status/Cardiac Output Goal: Patient has stable vital signs and fluid balance Outcome: Progressing Problem: Oxygenation/Respiratory Function Goal: Respiratory rate/effort will be within specified limits Outcome: Progressing Problem: Nutrition Goal: Nutritional status is improving Outcome: Progressing Problem: Aspiration Precautions Goal: Patient's risk of aspiration is minimized Outcome: Progressing Problem: Glycemic Control Goal: Clinical indication of glycemia balance is achieved Outcome: Progressing Problem: Knowledge Deficit,Education,Discharge Plan Goal: The patient/family will understand cerebrovascular disease and its symptoms, treatment and management Outcome: Progressing * Jackelyn Flores RN - 10/21/2022 4:35 PM CDT Problem: ELOPEMENT/ABDUCTION Goal: Risk for elopement &/or abduction during hospitalization is minimized Outcome: Progressing Problem: Safety related to restraint use Goal: Absence of injury while restrained Outcome: Progressing Problem: Fall Risk Goal: Fall risk and fall related injury risk are minimized (interventions related to the fall risk can be found in the flowsheet documentation) Outcome: Progressing Problem: Skin Integrity Goal: Skin integrity is maintained or improved Outcome: Progressing Problem: Pain/Discomfort Goal: Patient exhibits reduced pain/discomfort as evidenced by pain scores Outcome: Progressing Goal: Patient uses pharmacological and non-pharmacological pain management strategies. Outcome: Progressing Goal: Patient verbalizes acceptable level of pain relief and ability to engage in desired activity. Outcome: Progressing Problem: Neurological Deficit Goal: Neurological status is stable or improving Outcome: Progressing Problem: Hemodynamic Status/Cardiac Output Goal: Patient has stable vital signs and fluid balance Outcome: Progressing Problem: Oxygenation/Respiratory Function Goal: Respiratory rate/effort will be within specified limits Outcome: Progressing Problem: Mobility Goal: Patient's mobility/activity will be maintained as optimum level for age, diagnosis and physical limitations Outcome: Progressing Goal: Continuum of care needs are further met through referral to outpatient services when appropriate. Outcome: Progressing Goal: Patient reports the ability to perform Activities of Daily Living. Outcome: Progressing Problem: Communication Impairment/Dysarthria Goal: Ability to express needs and understand communication Outcome: Progressing Problem: Nutrition Goal: Nutritional status is improving Outcome: Progressing Problem: Aspiration Precautions Goal: Patient's risk of aspiration is minimized Outcome: Progressing Problem: Glycemic Control Goal: Clinical indication of glycemia balance is achieved Outcome: Progressing Problem: Knowledge Deficit,Education,Discharge Plan Goal: The patient/family will understand cerebrovascular disease and its symptoms, treatment and management Outcome: Progressing Problem: Oral Intake: Inadequate oral intake Goal: Total intake will meet estimated nutrient needs Outcome: Progressing Problem: Swallowing Goal: LTG - Patient will tolerate the least restrictive diet consistency to allow for safe consumption of daily meals Outcome: Progressing Problem: Transfers Goal: STG - Transfer from bed to chair Outcome: Progressing Problem: Risk for Violence: Self-Directed or Other Directed Description: Diagnosis: Risk for self-directed Violence or Risk for Directed Violence Risk Factors: Biochemical/neurologic imbalances, impulsivity, manic excitement, psychotic symptomatology, rage reaction, restlessness Possibly Evidenced By: agitated behaviors, delusional thinking, hallucinations, loud/threatening/profane speech, poor impulse control, provocative behaviors, verbal threats against others, verbal threats against self Goal: Patient will verbalize control of feelings. Outcome: Progressing Goal: Patient will respond to interventions when potential or actual loss of control occurs. Outcome: Progressing Goal: Patient will refrain from provoking others to physical harm. Outcome: Progressing Goal: Patient will display nonviolent behaviors toward others in the hospital, with the aid of medications and nursing interventions. Outcome: Progressing Goal: Patient will seek help when experiencing aggressive impulses. Outcome: Progressing Goal: Patient will refrain from verbal threats and loud, profrane language toward others. Outcome: Progressing Goal: Patient will be safe and free from injury. Outcome: Progressing * Dary Garvey MD - 10/21/2022 1:23 PM CDT PLEASE LINK my note to Dr. Hinkle's note Neurologic Critical Care Attending I spent 35 minutes in full attendance with this critically-ill patient. Time spent was exclusive ofseparately billed procedures, treating other patients, and teaching time. I have reviewed and agreewith resident/medical student documentation. The patient is at high risk for complications and morbidity or mortality. The patient is criticallyill with vital organ impairment of failure with high probability of imminent or life-threatening deterioration in the patient's condition. Critical care was necessary to treat or prevent life-threatening deterioration of the following: Right middle cerebral artery stroke (CMS/HCC) (POA: Unknown) Acute cerebrovascular accident (CVA) due to embolism of right middle cerebral artery (CMS/HCC) (POA: Yes) Nihss score 9 (POA: Yes) Received intravenous tissue plasminogen activator (tPA) in emergency department (POA: Yes) GERD (gastroesophageal reflux disease) (POA: Yes) Hemianopsia (POA: Yes) Weakness (POA: Yes) Left-sided sensory deficit present (POA: Yes) Gaze palsy (POA: Yes) Migraine (POA: Unknown) Hypertension (POA: Unknown) The plan of care other than mentioned in resident/medical student note consists of: 1. Rt MCA infarct. Brain compression s/p DHC Q1NC, NPi Appreciate NSGY recs Secondary stroke prevention/workup per stroke team Keep ICP < 22, if > 22 and > 5 minutes, aminister 250cc 3% NACL Repeat CTH @ 4am tmr SBP < 160, MAP > 65 for now, will raise SBP cap if clinical signs of worsening cerebral edema 2. Acute resp insufficiency. SBT. Will not extubate given potential for more cerebral edema. Vent bundles 3. Dysphagia. TF 4. Monitor UOP, replete lytes 5. Leukocytosis. Likely reactive, CTM 6. Neurogenic bladder. Flomax, cont straight cath. Prefer NO puentes insertion PT/OT/SIGNALING PROJECT ENGINEER Dary Garvey MD Neurologic Critical Care Attending 10/21/2022 * Shania Arce SLP - 10/21/2022 12:27 PM CDT [facility] Department of Physical Medicine & Rehabilitation Progress Note Patient: Consuelo Darby Med Record Number: [id number] Date of : 1980 Age: [age] year old 10/21/22 1200 Therapy on Hold Therapy on Hold Surgery;New Order Required for Therapy Barb Lopes MS [facility]-SIGNALING PROJECT ENGINEER Speech Language Pathologist * Stephanie Hester MD - 10/21/2022 12:08 PM CDT Stroke Service Daily Progress Note Consuelo Darby Age: [age] year old Date of : 1980 Date of Admission: 10/19/2022 Hospital Day: 2 Subjective Consuelo Darby is a 41yo M who developed acute onset L sided weakness, L-sided sensory deficits, and dysarthria. L sided weakness resolved in route and dysarthria improved in route. On arrival patient noted to L gaze plasy, L hemainopsia, mild dysarthria, and extinction. NIHSS: 7. Patient was givenTNK and code IVR was activated. TICI2b revascularization of the R MCA M1 occlusion. Admitted to ICUfor post-thrombectomy monitoring. Repeat CTH showing edema in R MCA territory. Will CTM closely with repeat CT H in the AM tmmrw. On 10/20/22 patient taken for hemicraniectomy, post-op CTH showing stable midline shift. Initial hypercoag work up negative repeat in [address], QDay CTH. NSGY following. ?? Medical history significant for hemiplegic migraine, GERD, GENESIS ?? Interval History: patient taken for hemicraniectomy, post-op CTH showing stable midline shift. ICD in place, hyper NAfor >22, >5 mins Objective Patient Vitals for the past 24 hrs: BP Temp Temp src Pulse Resp SpO2 Height Weight 10/21/22 1145 127/72 -- -- 84 18 98 % -- -- 10/21/22 1130 125/75 -- -- 85 18 97 % -- -- 10/21/22 1115 122/69 -- -- 90 19 98 % -- -- 10/21/22 1100 126/71 -- -- 85 18 98 % -- -- 10/21/22 1045 121/70 -- -- 86 17 98 % -- -- 10/21/22 1030 126/72 -- -- 86 17 98 % -- -- 10/21/22 1015 128/76 -- -- 89 16 96 % -- -- 10/21/22 1000 128/72 99.1 ??F (37.3 ??C) Axillary 92 17 98 % -- -- 10/21/22 0955 132/77 -- -- 93 17 98 % -- -- 10/21/22 0950 132/72 -- -- 94 24 97 % -- -- 10/21/22 0945 130/80 -- -- 91 17 98 % -- -- 10/21/22 0940 132/77 -- -- 94 17 97 % -- -- 10/21/22 0935 131/75 -- -- 102 19 97 % -- -- 10/21/22 0930 137/76 -- -- 100 17 97 % -- -- 10/21/22 0925 146/77 -- -- 101 17 97 % -- -- 10/21/22 0920 152/80 -- -- 94 17 97 % -- -- 10/21/22 0915 148/76 -- -- 97 31 97 % -- -- 10/21/22 0910 143/78 -- -- 98 17 97 % -- -- 10/21/22 0905 123/70 -- -- 97 19 96 % -- -- 10/21/22 0900 144/74 -- -- 97 18 96 % -- -- 10/21/22 0855 141/75 -- -- (!) 110 (!) 32 96 % -- -- 10/21/22 0850 146/80 -- -- 109 16 97 % -- -- 10/21/22 0845 152/78 -- -- 100 (!) 33 98 % -- -- 10/21/22 0840 148/75 -- -- 93 16 97 % -- -- 10/21/22 0835 147/77 -- -- 98 16 97 % -- -- 10/21/22 0830 149/77 -- -- 98 17 97 % -- -- 10/21/22 0825 143/79 -- -- 96 17 97 % -- -- 10/21/22 0820 146/77 -- -- 101 18 100 % -- -- 10/21/22 0815 149/84 -- -- 93 16 97 % -- -- 10/21/22 0810 148/81 -- -- 98 17 96 % -- -- 10/21/22 0805 146/73 -- -- 104 18 95 % -- -- 10/21/22 0800 144/70 98.8 ??F (37.1 ??C) Axillary (!) 118 (!) 35 97 % -- -- 10/21/22 0755 158/82 -- -- 106 17 97 % -- -- 10/21/22 0750 154/80 -- -- 105 17 96 % -- -- 10/21/22 0745 149/78 -- -- 107 17 97 % -- -- 10/21/22 0740 144/80 -- -- 106 17 97 % -- -- 10/21/22 0735 148/77 -- -- 105 17 97 % -- -- 10/21/22 0730 154/74 -- -- 104 16 97 % -- -- 10/21/22 0725 149/79 -- -- 103 16 97 % -- -- 10/21/22 0720 146/80 -- -- 103 16 97 % -- -- 10/21/22 0715 154/77 -- -- 102 17 97 % -- -- 10/21/22 0710 148/78 -- -- 102 17 97 % -- -- 10/21/22 0705 145/74 -- -- 102 16 97 % -- -- 10/21/22 0700 153/75 -- -- 103 17 97 % -- -- 10/21/22 0600 140/78 (!) 100.4 ??F (38 ??C) Bladder 108 28 97 % -- -- 10/21/22 0555 144/77 (!) 100.4 ??F (38 ??C) -- 105 30 97 % -- -- 10/21/22 0531 147/77 -- -- -- -- -- -- -- 10/21/22 0510 139/76 (!) 100.2 ??F (37.9 ??C) -- 103 23 97 % -- -- 10/21/22 0506 132/72 -- -- -- -- -- -- -- 10/21/22 0505 132/72 (!) 100.2 ??F (37.9 ??C) -- (!) 111 25 100 % -- -- 10/21/22 0500 142/68 (!) 100.2 ??F (37.9 ??C) Bladder 102 18 97 % -- -- 10/21/22 0400 130/63 (!) 100.4 ??F (38 ??C) -- 98 30 98 % -- -- 10/21/22 0300 130/73 (!) 100.4 ??F (38 ??C) Bladder 92 (!) 33 98 % -- -- 10/21/22 0236 -- (!) 100.4 ??F (38 ??C) -- 91 16 98 % -- -- 10/21/22 0200 129/63 (!) 100.4 ??F (38 ??C) Bladder 89 16 98 % -- -- 10/21/22 0129 113/69 -- -- -- -- -- -- -- 10/21/22 0124 110/70 (!) 100.2 ??F (37.9 ??C) -- 92 16 98 % -- -- 10/21/22 0121 100/83 (!) 100.2 ??F (37.9 ??C) -- 88 16 98 % -- -- 10/21/22 0120 100/83 (!) 100.2 ??F (37.9 ??C) -- 90 16 98 % -- -- 10/21/22 0114 121/63 (!) 100.2 ??F (37.9 ??C) -- 88 16 98 % -- -- 10/21/22 0111 120/66 (!) 100.2 ??F (37.9 ??C) -- 87 16 98 % -- -- 10/21/22 0110 120/66 (!) 100.2 ??F (37.9 ??C) -- 87 16 98 % -- -- 10/21/22 0108 116/66 (!) 100.2 ??F (37.9 ??C) -- 88 16 97 % -- -- 10/21/22 0106 116/60 -- -- -- -- -- -- -- 10/21/22 0105 116/60 (!) 100.2 ??F (37.9 ??C) -- 88 16 97 % -- -- 10/21/22 0103 119/65 (!) 100.2 ??F (37.9 ??C) -- 89 17 96 % -- -- 10/21/22 0101 114/63 -- -- -- -- -- -- -- 10/21/22 0100 114/63 (!) 100.2 ??F (37.9 ??C) Bladder 86 18 96 % -- -- 10/21/22 0056 112/65 -- -- -- -- -- -- -- 10/21/22 0055 112/65 100 ??F (37.8 ??C) -- 86 18 100 % -- -- 10/21/22 0053 -- -- -- 92 -- 100 % -- -- 10/21/22 0050 126/75 (!) 100.2 ??F (37.9 ??C) -- 86 18 100 % -- -- 10/21/22 0045 118/71 (!) 100.2 ??F (37.9 ??C) Bladder 87 18 100 % -- -- 10/21/22 0040 113/70 (!) 100.2 ??F (37.9 ??C) -- 87 18 100 % -- -- 10/21/22 0035 117/69 (!) 100.2 ??F (37.9 ??C) -- 86 18 100 % -- -- 10/21/22 0030 110/63 (!) 100.2 ??F (37.9 ??C) -- 85 18 100 % -- -- 10/21/22 0025 114/65 (!) 100.4 ??F (38 ??C) -- 86 18 100 % -- -- 10/21/22 0020 119/65 (!) 100.2 ??F (37.9 ??C) -- 86 18 100 % -- -- 10/21/22 0010 134/57 100 ??F (37.8 ??C) -- (!) 114 20 100 % -- -- 10/21/22 0000 137/81 (!) 100.2 ??F (37.9 ??C) Bladder 102 18 100 % -- -- 10/20/22 2355 136/77 100 ??F (37.8 ??C) -- 105 18 100 % -- -- 10/20/22 2344 143/78 -- -- 105 -- -- -- -- 10/20/22 2318 136/82 -- -- -- -- -- -- -- 10/20/22 2300 142/76 99.7 ??F (37.6 ??C) Bladder 100 18 100 % -- -- 10/20/222199 -- -- -- 105 18 100 % -- -- 10/20/222124 -- 99.1 ??F (37.3 ??C) Axillary 102 18 100 % -- -- 10/20/222123 -- -- -- (!) 115 -- 100 % -- -- 10/20/22 1810 109/64 99 ??F (37.2 ??C) -- 102 21 96 % -- -- 08/11/23 1805 108/67 -- -- 101 13 96 % -- -- 10/20/22 1804 -- -- -- -- 12 -- -- -- 10/20/22 1800 116/60 -- -- (!) 110 20 96 % -- -- 10/20/22 1755 115/65 -- -- 101 14 96 % -- -- 10/20/22 1750 126/70 -- -- (!) 118 12 97 % -- -- 10/20/22 1745 137/75 99.1 ??F (37.3 ??C) Temporal 109 14 97 % -- -- 10/20/22 1730 130/88 -- -- 98 18 96 % -- -- 10/20/22 1715 126/70 -- -- 101 19 94 % -- -- 10/20/22 1700 122/76 -- -- (!) 117 15 97 % -- -- 10/20/22 1645 130/70 -- -- 106 24 96 % -- -- 10/20/22 1630 117/79 -- -- (!) 112 (!) 42 97 % -- -- 10/20/22 1615 116/68 -- -- (!) 110 20 98 % -- -- 10/20/22 1600 127/69 99.3 ??F (37.4 ??C) Axillary 105 11 98 % -- -- 10/20/22 1545 125/76 -- -- 105 15 95 % -- -- 10/20/22 1530 128/76 -- -- (!) 115 (!) 8 97 % -- -- 10/20/22 1515 -- -- -- (!) 131 27 96 % -- -- 10/20/22 1500 145/82 -- -- (!) 111 20 95 % -- -- 10/20/22 1445 139/75 -- -- (!) 124 20 96 % -- -- 10/20/22 1430 144/75 -- -- (!) 123 21 97 % -- -- 10/20/22 1415 141/81 -- -- (!) 125 12 98 % -- -- 10/20/22 1400 132/69 -- -- 103 18 98 % 1.626 m (5' 4 ) 95.3 kg (210 lb) 10/20/22 1345 136/79 -- -- (!) 113 20 96 % -- -- 10/20/22 1330 140/74 -- -- (!) 113 19 96 % -- -- 10/20/22 1315 135/76 -- -- (!) 113 22 98 % -- -- 10/20/22 1300 133/77 -- -- (!) 120 21 98 % -- -- 10/20/22 1245 137/73 -- -- (!) 115 22 97 % -- -- 10/20/22 1230 137/84 -- -- (!) 114 19 96 % -- -- 10/20/22 1215 135/76 -- -- (!) 116 20 97 % -- -- Intake/Output Summary (Last 24 hours) at 10/21/2022 1208 Last data filed at 10/21/2022 1000 Gross per 24 hour Intake 3286.64 ml Output 1495 ml Net 1791.64 ml Exam: Cortical Function Mental Status Awake, alert, follows commands Orientation aphasia Language aphasia Visual Powell Intact bilaterally to confrontation Neglect No visual neglect noted, no tactile neglect noted Cranial Nerves II Pupils 3 mm and bilaterally reactive to light. Fundoscopic exam not performed. VIII Hearing is intact bilaterally to finger rub. III/IV/ Extraocular muscles intact. No diplopia, ptosis, nystagmus or convergence abnormalities noted. IX/X Palate elevated symmetrically without phonation abnormalities noted. V Facial sensation symmetric to light touch and intact bilaterally. Corneal reflex not examined. XIHead turning and shoulder shrug are intact. VII No facial palsy noted. XII Tongue is midline with normal movements and no atrophy noted. Motor Function Movement No abnormalities noted Bulk No abnormalities noted Tone No abnormalities noted Moves b/l LE, moves RUE, did not move LUE, but in brace Sensory Light Touch REYNOLD, aphsic Noxious Stimuli Symmetric and intact bilaterally Temperature Not tested Pallesthesia Not tested Cerebellar FNF DALE HKS Right Intact Deferred Intact Left Intact Deferred Intact Gait Deferred Labs: Recent Labs Component Name 10/21/22 0753 10/21/22 0459 10/20/22 1640 10/20/22301 WBC 18.6* 18.7* - 19.5* RBC 3.01* 2.98* - 3.83 HGB 9.4* 9.4* 12.0 11.9* HCT 27.9* 27.8* 36.6 35.4 Recent Labs Component Name 10/21/22 0459 10/20/22 03010/19/22 0824 NA 142 138 139 CL 115* 108* 108* CO2 16* 21* 21* BUN 12 6* 13 CREATININE 0.64 0.50* 0.84 CALCIUM 8.2* 8.2* 8.9 No results for input(s): MG in the last 22683 hours. Recent Labs Component Name 10/21/22458 PHOS 2.2* Recent Labs Component Name 10/20/2230110/19/22 0824 10/19/22 0809 PT 13.6 12.3 - INR 1.1 0.9 0.9 PTT 24.4 - - No results for input(s): A1C in the last 18134 hours. Recent Labs Component Name 10/20/22 0302 06/15/22 0757 CHOL 173 204* HDL 42 37* LDLCALC 91 117* TRIG 201* 251* Recent Labs Component Name 06/15/22 0757 TSH 1.873 No results for input(s): CKMB, CKTOTAL, CKMB, TROPONINI, BNP in the last [address] ANGIO BRAIN NECK STROKE Result Date: 10/19/2022 PROCEDURE: CT ANGIO BRAIN NECK STROKE, DATE/TIME OF EXAM: 10/19/2022 8:16 AM, LOCATION [facility] INDICATION: Code Stroke ADDITIONAL CLINICAL INFORMATION: Ordering Provider Reason For Exam: Technologist Note: Additional: EXAMINATION: 1. Computed tomographic (CT) angiography of the head with contrast 2. CT angiography of the neck with contrast TECHNIQUE: CT angiography of the headand neck was obtained after the uneventful administration [...] a concurrent noncontrasted head CT for detailed intracranialfindings including findings suggesting an acute right MCA [...] arteries are patent. The basilar artery is patentpatent. 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 IMPRESSION: 1. [...] Lonnie Rae MD on 10/19/2022 8:[address] BRAIN - Stroke Result Date: 10/19/2022 PROCEDURE: CT BRAIN STROKE, DATE/TIME OF EXAM: 10/19/2022 8:04 AM, LOCATION [facility] INDICATION: Code Stroke ADDITIONAL CLINICAL INFORMATION: Ordering [...] of scott-white matter differentiation in the right frontotemporallobes and the right insula, concerning for an acute infarct. There is suggestion of a hyperdense right MCA likely represent acute thrombus (series 5 image 25). No acute intracranial hemorrhage or intra- or extra-axial fluid collections are identified. The ventricles are of normal size, shape, and morphology. The basal cisterns are patent. No mass effect or midline shift is seen. The scott-white mat ter differentiation is normal. The visualized portions of [...] Lonnie Rae MD on 10/19/2022 8:15 AM Right middle cerebral artery stroke (CMS/HCC) (POA: Unknown) Acute cerebrovascular accident (CVA) due to embolism of right middle cerebral artery (CMS/HCC) (POA: Yes) Nihss score 9 (POA: Yes) Received intravenous tissue plasminogen activator (tPA) in emergency department (POA: Yes) GERD (gastroesophageal reflux disease) (POA: Yes) Hemianopsia (POA: Yes) Weakness (POA: Yes) Left-sided sensory deficit present (POA: Yes) Gaze palsy (POA: Yes) Migraine (POA: Unknown) Hypertension (POA: Unknown) Assessment ??Consuelo Darby is a 41 year old female presenting for left sided sensory loss, left gaze palsy,L hemianopsia, and left extinction. Given TNK and taken for mechanical thrombectomy. Will admit to neuro ICU for post-thrombectomy monitoring. Repeat CTH showing R MCA infarct, midline shift. S/p hemicrani, monitoring BP and ICP. ?? Stroke Type: Ischemic Stroke Mechanism: ESUS ?? Plan ?? TIA/Stroke Workup; active - Patient will be admitted to neuro ICU under the stroke service. - s/p TICI2b revascularization, TNK - CTH, CTA H/N, MRI Brain, MRI H/N - TTE: wnl - SARAH + Loop - HbA1C: 6.0, LDL: 91, Cardiac Enzymes; wnl - NPO until passes swallow - q1h vitals and neurological checks - SARAH, RF, factor V leiden, complement, protein c, s, lupus anticoagulant panel, repeat in 1 week ?? Blood Pressure Goals: SBP<160, map>70 ? If tPA given, - repeat CT Head or MR Head in 24 hours to evaluate for bleed - if negative at 24 hours, okay to resume aspirin ?? Core Measures TNK administration: yes Anti-thrombotic: holding in setting of TNK Statin: atorvastatin 80mg DVT prophylaxis: SCD Swallow Evaluation: pending PT/OT Evaluation: pending Smoking cessation; will assistant corporation counsel: N/A ?? Neurological ?? R M1 ischemic stroke; active - Neurology critical care will be primary - Post-thrombectomy monitoring - q1h vitals and neurological checks - Stat CT head for any change in neurological examination - MRI Brain or repeat CTH 24 hours post-TNK - Head of bed > 30?? - Avoid hypoglycemia, hyponatremia, and hyperthermia - protein c, s, lupus anticoagulant panel ?? Core Measures TNK administration: yes Anti-thrombotic: holding in setting of edema, swelling Statin: atorvastatin 80mg DVT prophylaxis: SCD Swallow Evaluation: pending PT/OT Evaluation: pending Smoking cessation; will assistant corporation counsel: N/A Migraine - verapamil 40 TID Cardiovascular ? No acute issues ?? - 12-lead EKG - Cardiac markers x 3 - Transthoracic ECHO ordered - Blood pressure goal: SBP<180, map>70 - PRN hydralazine IV and labetalol IV for SBP > 180 - Hemodynamic monitoring ?? HTN: - home metop - PRN hydralazine, labetalol SBP <160 Respiratory ? No acute issues ?? - Aspiration precautions - Elevate head of bed - Maintain oxygen saturation > 92% - Monitor for respiratory distress Gastrointestinal ? No acute issues ?? 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 No acute issues ?? - Monitor intake and output - Replete electrolytes as needed Hematology ? No acute issues ?? - Avoid unnecessary IM injections and arterial punctures during the first 24 hours post-tPA - Evaluate puncture sites for bleeding or hematoma - Evaluate emesis, secretions, stool, and urine for blood - No nasogastric tube insertions during the first 24 hours post-tPA - Transfuse for hemoglobin < 7.0 g/dL Endocrine ? Vit D deficiency - Vit D Infectious Disease ? No acute issues ?? - Monitor for fevers - Ramirez culture if febrile Musculoskeletal ? No acute issues Disposition ? - PT/OT pending ?? Individual Modifiable Risk Factors Hypertension: no Hyperlipidemia: no Diabetes: no Atrial Fibrillation: no Tobacco: no ?? Additional Hospital Problems: GENESIS: cont home amitriptyline HTN: home metoprolol 25mg Vit D Deficiency: Vit D ?? Stephanie Hester MD Neurology Resident * Valdez Rodriguez MD - 10/21/2022 8:51 AM CDT Neurosurgery Progress Note Consuelo Dayami Darby 10/21/22 Hospital Day: 2 Subjective: No acute overnight events following surgery. Patient sedated this AM for agitation Significant Events: is a 41 year old female with no significant PMH who presented on 10/19 with acute L. Weakness, dysarthria. She was found to have R. M1 occlusion and is now s/p TNK and IVR revascularization. Neurosurgery was consulted on stroke day 2 for hemicrani watch. Patient medications include no blood thinners. 10/20/22: Decompressive craniectomy with insertion of ICP monitor 10/21/22: ICP controlled, patient sedated for agitation overnight. Neuro ICU working toward extubation Objective: T: 100 ??F (37.8 ??C) [Temp Min: 98.8 ??F (37.1 ??C) Max: 100.4 ??F (38 ??C)] BP: 122/64[BP Min: 100/83 Max: 158/82] MAP: 81[MAP (mmHg) Min: 71 Max: 106] HR: 92[Pulse Min: 84 Max: 133] RR: 19[Resp Min: 12 Max: 35] Sat: 97 %[SpO2 Min: 94 % Max: 100 %] ICP: 14 mmHg[ICP #1 Min: 9 mmHg Max: 23 mmHg] Input/Output: 10/20 0701 - 08/12 0700 In: 3119.5 [I.V.:2864.5] Out: 2695 [Urine:2625; Drains:70] LEONCIO/Other Drain: intact Respiratory: PEEP/CPAP: 5 cm H20 Pressure Support: 5 cm H2O OBSERVED PEAK INSPIRATORY PRESSURE (cm H2O): 12 cm H2O SET TIDAL VOLUME (mL): 450 ML Spontaneous Tidal Volume (mL): 460 ML EXHALED TIDAL VOLUME (ml): 460 ml Labs: Recent Labs Component Name 10/21/22 0753 WBC 18.6* HGB 9.4* HCT 27.9* PLTCOUNT 259 Recent Labs Component Name 10/21/22 0459 NA 142 POTASSIUM 4.8* CO2 16* BUN 12 CREATININE 0.64 CALCIUM 8.2* GLUCOSE 169* Recent Labs Component Name 10/20/22 0302 INR 1.1 PTT 24.4 Imaging: CT: IMPRESSION: ?? Interval postsurgical changes of decompressive right hemicraniectomy with ICP monitor and subdural drain in place. 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 Diet: DIET TUBE FEEDING CONTINUOUS DIET NPO Except: NO EXCEPTIONS Fluids: Per neuro MEDICATIONS FOR CURRENT ENCOUNTER: ?? SCHEDULED MEDICATIONS: ?? *Hold/Avoid Medication, Other, 0800 and 1999 ?? *Hold/Avoid Medication, Other, DIRECTED ?? 0.9% NaCl injection 3 mL, Intracatheter, q8h ?? 0.9% NaCl injection 3 mL, Intracatheter, q8h ?? artificial tears ophthalmic ointment, Each Eye, q8h ?? chlorhexidine (Peridex) 0.12 % oral solution 15 mL, Mouth/Throat, BID ?? lansoprazole (Prevacid) suspension 30 mg, Enteral Tube, QDAY BEFORE BREAKFAST ?? loratadine (Claritin) tablet 10 mg, Enteral Tube, QDAY ?? metoprolol tartrate IR (Lopressor) tablet 25 mg, Enteral Tube, BID ?? polyethylene glycol 3350 (Miralax) packet 17 g, Enteral Tube, QDAY ?? potassium - sodium phosphates (Phos-Nak) powder 2 packet, Enteral Tube, TID WC ?? senna-docusate (Senokot-S) tablet 1 tablet, Enteral Tube, QDAY ?? tamsulosin (Flomax) capsule 0.4 mg, Oral, QDAY ?? verapamil (Isoptin) tablet 40 mg, Enteral Tube, q8h ?? vitamin D3 (Cholecalciferol) 25 MCG (1000 UNITS) tablet 2,000 Units, Enteral Tube, QDAY ?? [COMPLETED] fentaNYL (PF) (Sublimaze) injection 25 mcg, Intravenous, Once ?? [] acetaminophen (Ofirmev) injection 1,000 mg, Intravenous, Once ?? [] iopamidol (Isovue 370) 76 % contrast, Intravenous, Contrast - Once ?? [START ON 10/22/2022] enoxaparin (Lovenox) injection 40 mg, Subcutaneous, QDAY ?? CONTINUOUS MEDICATIONS: ?? dexmedeTOMIDine (Precedex) 400 mcg in 100 mL NS infusion premix, Intravenous, Continuous ?? norepinephrine (Levophed) 8 mg/250 ml D5 infusion premix, Intravenous, Continuous ?? PRN MEDICATIONS: ?? Or ?? 0.9% NaCl injection 1-10 mL, Intracatheter, PRN ?? 0.9% NaCl injection 3 mL, Intracatheter, PRN ?? dextrose 10 % IV bolus, Intravenous, PRN ?? dextrose 10 % IV bolus, Intravenous, PRN ?? fentaNYL (PF) (Sublimaze) injection 50 mcg, Intravenous, q2h PRN ?? glucagon (Glucagen) injection 1 mg, Subcutaneous, PRN ?? glucose (Diabetic Use) (Dex4 Glucose) oral liquid, Oral, PRN ?? glucose (Diabetic Use) oral gel, Oral, PRN ?? glucose chew tablet 4 tablet, Oral, PRN ?? vancomycin (Vancocin) injection, , PRN General: intubated Neuro: PERRL, sedated, flexing to pain, +cough, +gag Assessment: 41 year old female s/p decompressive craniectomy after R M2 occlusion Plan: Maintain normotension Head of bed 30 degrees Monitor ICP and call NSGY for ICP greater than 22 Maintain LEONCIO drain and record output q4hr and PRN NA goal normonatremic Continue q1 neurochecks Valdez Rodriguez MD 5:51 PM 10/21/22 * Deyanira Russell, PT - 10/21/2022 8:23 AM CDT [facility] Department of Physical Medicine & Rehabilitation Progress Note Patient: Consuelo Darby Med Record Number: [id number] Date of : 1980 Age: [age] year old 10/21/22 0823 Therapy on Hold Therapy on Hold Surgery;New Order Required for Therapy * Sosa Degroot MD - 10/21/2022 7:42 AM CDT Images from the original note were not included. Vascular Neurology Fellow Plan of Care Note Consuelo Darby is a 41 year old woman presenting to [facility] ED for acute left sensorimotor deficits, left gaze palsy, dysarthria and headache. Early R frontotemporal hypodensity on CTH and R MCA-distalM1 occlusion on CTA. IV TNK was administred within 2 hrs of LKW, she underwent MT with TICI 2b recan alization. Now s/p R decompressive hemicrani on 10/20. Stroke etiology: embolic. No FHx of hypercoagulability or early loss. Will pursue stroke in young w/u given her age. Plan: - hyperosmotic therapy - Na goal 150 - 155 - SBP goal 140 - 160 - ICP monitoring - MRI brain w/o - maintain normothermic and euglycemic - pending SARAH w/ ILR - PT/OT/SIGNALING PROJECT ENGINEER when stable Temp: [99 ??F (37.2 ??C)-100.4 ??F (38 ??C)] 100.4 ??F (38 ??C) Pulse: [86-147] 103 Resp: [8-42] 17 BP: (100-153)/(60-88) 153/75 Arterial Line BP #1: (73-145)/(52-106) 86/81 O2 %: [30 %-40 %] 30 % Recent Labs Component Name 10/21/22458 WBC 18.7* Recent Labs Component Name 10/21/22 0459 10/20/22 0302 10/19/22 0824 06/15/22 0757 12/09/18 0812 07/25/18205503/01/16 0817 SODIUM - - - - 138 135* 141 POTASSIUM 4.8* 3.6 4.2 - 3.8 3.8 3.6 CHLORIDE - - - - 102 103 110* CO2 16* 21* 21* - 24 21* 21* BUN 12 6* 13 - 10 7 9 CREATININE 0.64 0.50* 0.84 - 0.82 0.93 0.60 EGFR >90 >90 >90 - >60 >60 >60 GLUCOSE 169* 140* 109 - 120* 105 83 CALCIUM 8.2* 8.2* 8.9 - 9.4 9.2 8.1* - = values in this interval not displayed. Sosa Degroot MD, PhD Vascular and Interventional Neurology Fellow * Gianna Rose OT - 10/21/2022 7:37 AM CDT [facility] Department of Physical Medicine & Rehabilitation Progress Note Patient: Consuelo Darby Med Record Number: [id number] Date of : 1980 Age: [age] year old 10/21/22 0700 Therapy on Hold Therapy on Hold Surgery;Chart Reviewed;New Order Required for Therapy * Consuelo Prado Kyle - 10/21/2022 7:33 AM CDT Images from the original note were not included. Neurocritical Care Progress Note Consuelo Darby Age: [age] year old Date of : 1980 Date of Admission: 10/19/2022 Hospital Day: 2 Subjective History of Present Illness Consuelo Darby is a 41 year old female who developed acute L sided weakness, L sided sensory deficits, and dysarthria. L sided weakness resolved in route and dysarthria improved in route. On arrival,R gaze palsy and L hemianopsia. NIHSS:7. Pt was given TNK. TICI2b revascularization of R MCA M1 occlusion. ICU Timeline: Admitted to NeuroICU for post TNK and thrombectomy monitoring. Started on cardene drip for BP abovegoal of SBP<140 on 10/19 that was unable to be controlled with prn pushes. Underwent R decompressive hemicraniectomy 10/20. ICP monitor and dura repair placed. Mechanically ventilated Objective BP 147/77 Pulse 98 Temp (!) 100.4 ??F (38 ??C) Resp 18 Ht 1.626 m (5' 4 ) Wt 95.3 kg (210lb) SpO2 97% Temp (30hrs) Max:100.4 ??F (38 ??C) Body mass index is 36.05 kg/m??. Exam - General Heent - right sided head surgical site is soft and intact (R MCA pulses absent, R IRMA pulses present) , pupils 2+ bilaterally Neck - no masses, trachea midline CV - RRR Pulm - mech ventilation Abd - soft Exam - Neurologic Cortical Function Unable to assess Motor Function Movement Normal passive movement Bulk Unable to assess Tone Unable to assess Sensory Unable to assess Cerebellar Unable to assess Gait Unable to assess Labs: Lab Results-Last 24 Hours Procedure Component Value Units Date/Time CBC W AUTO DIFFERENTIAL [[id number]] Order Status: Sent Specimen: Blood BLOOD GASES ART + COOX PANEL [[id number]] Order Status: Sent Specimen: Blood, arterial from Arterial Blood COMPLEMENT C3 [[id number]] (Normal) Collected: 10/21/22458 Order Status: Completed Specimen: Blood Updated: 10/21/22546 Complement C3 155 mg/dL MAGNESIUM BLOOD [[id number]] (Normal) Collected: 10/21/22458 Order Status: Completed Specimen: Blood Updated: 10/21/22546 Magnesium 2.2 mg/dL Comment: Hemolysis detected in this specimen. Hemolysis is known to cause elevations in this analyte. Caution should be exercised in the interpretation of this result. Recommend repeat testing if clinically indicated. BASIC METABOLIC PANEL (CALCIUM TOTAL) [[id number]] (Abnormal) Collected: 10/21/22458 Order Status: Completed Specimen: Blood Updated: 10/21/22546 BUN 12 mg/dL Creatinine 0.64 mg/dL Sodium 142 mmol/L Potassium 4.8 mmol/L Comment: Hemolysis detected in this specimen. Hemolysis may cause false elevations in potassium leading to pseudohyperkalemia or masked hypokalemia. Recommend repeat testing if clinically indicated. Chloride 115 mmol/L CO2 16 mmol/L Glucose 169 mg/dL Calcium 8.2 mg/dL Anion Gap 16 BUN/Creatinine Ratio 19 Osmolality Calculated 298 mOsm/kg eGFR by CKD-EPI >90 mL/min/1.73 m2 PHOSPHORUS BLOOD [[id number]] (Abnormal) Collected: 10/21/22458 Order Status: Completed Specimen: Blood Updated: 10/21/22545 Phosphorus 2.2 mg/dL TROPONIN-I HIGH SENSITIVE BASELINE + 1HR [[id number]] (Normal) Collected: 10/21/22458 Order Status: Completed Specimen: Blood Updated: 10/21/22545 Troponin I High Sensitive <3 ng/L RHEUMATOID FACTOR BLOOD QUANTITATIVE [[id number]] (Normal) Collected: 10/21/22458 Order Status: Completed Specimen: Blood Updated: 10/21/22535 Rheumatoid Factor <15 IU/mL Rheumatoid Factor Screen Negative CBC W/O DIFFERENTIAL [[id number]] (Abnormal) Collected: 10/21/22458 Order Status: Completed Specimen: Blood Updated: 10/21/22524 WBC 18.7 10??3/uL RBC 2.98 10??6/uL Hemoglobin 9.4 g/dL Hematocrit 27.8 % MCV 93.3 fL MCH 31.5 pg MCHC 33.8 g/dL RDW-SD 48.8 fL RDW-CV 14.3 % Platelet Count 260 10??3/uL MPV 10.6 fL nRBC Absolute 0.00 10??3/uL nRBC Auto 0.0 /100 WBC FACTOR V LEIDEN MUTATION PANEL [[id number]] Collected: 10/21/22458 Order Status: Sent Specimen: Blood Updated: 10/21/22509 TROPONIN-I HIGH SENSITIVE REFLEX 1HOUR [[id number]] Order Status: Sent Specimen: Blood SARAH BLOOD SCREEN W/REFLEX TITER [[id number]] Collected: 10/21/22458 Order Status: Sent Specimen: Blood Updated: 10/21/22505 GLUCOSE - POINT OF CARE [[id number]] (Abnormal) Collected: 10/21/22457 Order Status: Completed Specimen: Blood Updated: 10/21/22 050 Glucose WB/POC 166 mg/dL Specimen Type Cap Fingerstick GLUCOSE - POINT OF CARE [[id number]] (Abnormal) Collected: 10/21/22 0121 Order Status: Completed Specimen: Blood Updated: 10/21/22124 Glucose WB/POC 164 mg/dL Specimen Type Cap Fingerstick BLOOD GASES ART + COOX PANEL [[id number]] (Abnormal) Collected: 10/20/222245 Order Status: Completed Specimen: Blood, arterial from Arterial Blood Updated: 10/20/222252 pH Arterial 7.36 pH pO2 Arterial 179 mmHg pCO2 Arterial 32 mmHg HCO3 Arterial 18.1 mmol/L BE Arterial -6.5 mmol/L Oxyhemoglobin Arterial 97.5 % Dexoyhemoglobin (HHB) % <1.0 % Methemoglobin 0.8 % Carboxyhemoglobin 1.0 % O2 Content Arterial 14.1 ml/dL Hemoglobin by COOX 10.0 g/dL O2 Saturation Arterial 99 % FI O2 Arterial 40.0 % Narrative: Carboxyhemoglobin Normal Concentration: Non-smokers: 0-2%; Smokers: 0-9%; Toxic: >20% BLOOD GASES ART + COOX PANEL [[id number]] Order Status: Canceled Specimen: Blood, arterial from Arterial Blood BLOOD GAS ART+LYTES+METAB+COOX POC NOTIF [[id number]] Collected: 10/20/221926 Order Status: Completed Specimen: Other Updated: 10/20/222099 Comment Notification Label Only - See Separate Report BLOOD GAS+COOX+LYTES+METAB ARTERIAL POCT [[id number]] (Abnormal) Collected: 10/20/221935 Order Status: Completed Specimen: Blood, arterial from Arterial Blood Updated: 10/20/221935 pH Arterial 7.36 pH pO2 Arterial 180 mmHg pCO2 Arterial 36 mmHg HCO3 Arterial 20.3 mmol/L BE Arterial -4.6 mmol/L Oxyhemoglobin Arterial 97.1 % Dexoyhemoglobin (HHB) % 1.1 % Methemoglobin 0.8 % Carboxyhemoglobin 1.0 % Comment: Carboxyhemoglobin Normal Concentration: Non-smokers: 0-2%; Smokers: 0- 9%; Toxic: >20% O2 Content Arterial 13.4 ml/dL Hemoglobin by COOX 9.5 g/dL O2 Saturation Arterial 99 % Sodium Whole Blood 143 mmol/L Potassium Whole Blood 3.6 mmol/L Chloride WB 116 mmol/L Calcium Ionized 1.03 mmol/L Ionized Calcium pH Adjusted 1.01 mmol/L Anion Gap (AG) Arterial 10 mmol/L Glucose WB 155 mg/dL Lactic Acid Whole Blood 1.6 mmol/L HGB HCT PANEL [[id number]] (Normal) Collected: 10/20/22 1640 Order Status: Completed Specimen: Blood Updated: 10/20/22 1701 Hemoglobin 12.0 g/dL Hematocrit 36.6 % HEMOGLOBIN A1C [[id number]] (Abnormal) Collected: 10/20/22 1015 Order Status: Completed Specimen: Blood Updated: 10/20/22 1415 Hemoglobin A1c 6.0 % Estimated Average Glucose 126 mg/dL Comment: HbA1c Interpretation: Normal : < 5.7% Pre-diabetes: 5.7-6.4% Diabetes: Equal to or greater than 6.5% Test results diagnostic of diabetes should be repeated for confirmation. Treatment target values recommended by ADA and other clinical organizations should be used to evaluate metabolic control in patients. Reference: [place] [employer], Standards of Care in Diabetes -2020 In patients 70 years and older consider HbA1c target range of 7.0-7.5% (Reference: Ronal David et al. JAMDA. 2012) The Se[employer] assay for the measurement of HbA1c is a National Glycohemoglobin Standardization Program (NGSP) certified method. GLUCOSE - POINT OF CARE [[id number]] (Abnormal) Collected: 10/20/22 1132 Order Status: Completed Specimen: Blood Updated: 10/20/22 1142 Glucose WB/POC 124 mg/dL Specimen Type Cap Fingerstick LUPUS ANTICOAGULANT PANEL [[id number]] Collected: 10/20/22 0302 Order Status: Completed Specimen: Blood Updated: 10/20/22 1135 APTT 24.4 Seconds PT 13.6 Seconds INR 1.1 STACLOT-LA Buffer 37.8 Seconds STACLOT-LA Phospholipid 33.2 Seconds STACLOT-LA Delta 4.6 Seconds Interpretation STACLOT-LA Negative Comment: Up to 15-20% of patients with lupus anticoagulant associated with antiphospholipid antibody syndrome (APAS) will have negative STACLOT-LA results. For these patients we recommend additional testing to include the Dilute Edgar Viper Venom Time (DRVVT) test. Immunoassay measurements of anti- cardiolipin and anti-beta-2 glycoprotein 1 are recommended if the DRVVT, and STACLOT-LA tests are negative and there is clinical suspicion of APAS. GLUCOSE - POINT OF CARE [[id number]] (Abnormal) Collected: 10/20/22743 Order Status: Completed Specimen: Blood Updated: 10/20/22753 Glucose WB/POC 32 mg/dL Specimen Type Cap Fingerstick GLUCOSE - POINT OF CARE [[id number]] (Abnormal) Collected: 10/20/2247 Order Status: Completed Specimen: Blood Updated: 10/20/22753 Glucose WB/POC 118 mg/dL Specimen Type Cap Fingerstick Imaging: CT HEAD WO CONTRAST Result Date: 10/20/2022 IMPRESSION: Interval postsurgical changes of decompressive right hemicraniectomy with ICP monitor and subdural drain in place. 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 > Dictated by Bassam Jovel M.D. (nursing resident) IGonzalez MD have personally reviewed and interpreted this examination/study. > Interpreting Provider: Gonzalez Velasco MD on 10/20/2022 11:[address] HEAD NON CONTRAST Result Date: 10/20/2022 IMPRESSION: Findings consistent with a large acute area of infarction in the right cerebral hemisphere in the distribution of the right middle cerebral artery with mass effect and approximately 4 mm of midline shift right to left. There is no definite hemorrhagic transformation. There is hyperdensity of the right middle cerebral artery likely representing thrombus. Clinical correlation and continued close interval follow-up are recommended. Results discussed with the stroke team physician, Dr. Stephanie Hester, on 20 October 2022 approximately 1225 hours. > Interpreting Provider: Joni Fabian MD on 10/20/2022 12:[address] ANGIO BRAIN NECK STROKE Result Date: 10/19/2022 IMPRESSION: 1. Occlusion of the distal M1 [...] Lonnie Rae MD on 10/19/2022 8:[address] BRAIN - Stroke Result Date: 10/19/2022 IMPRESSION: 1. No acute intracranial hemorrhage. 2. [...] Lonnie Rae MD on 10/19/2022 8:15 AM Hospital Problems on Admission: Right middle cerebral artery stroke (CMS/HCC) (POA: Unknown) Acute cerebrovascular accident (CVA) due to embolism of right middle cerebral artery (CMS/HCC) (POA: Yes) Nihss score 9 (POA: Yes) Received intravenous tissue plasminogen activator (tPA) in emergency department (POA: Yes) GERD (gastroesophageal reflux disease) (POA: Yes) Hemianopsia (POA: Yes) Weakness (POA: Yes) Left-sided sensory deficit present (POA: Yes) Gaze palsy (POA: Yes) Migraine (POA: Unknown) Hypertension (POA: Unknown) Assessment Consuelo Darby is a 41 year old female presenting for R sided gaze preference, L hemianopsia, L arm and L leg hemiparesis, and L extinction. CTA showed RMCA M1 occlusion. S/P TNK and MT with TICI 2B recanalization. Admitted to neuroICU for post MT and post TNK monitoring. S/P right decompressive hemicraniectomy with ICP monitor and dura repair in place. Will attempt to extubate tomorrow. Lupus anticoagulant negative. Pending other workup of protein c,s Plan Neurological EVD open at 0: drained ICP: CPP: # Malignant R MCA syndrome s/p Plan: - Neurological checks q1 with documented NIH - CT 0400 on 10/22 to determine if safe for extubation - Aspirin holding - Head of bed > 30?? - Avoid hypoglycemia, hyponatremia, and hyperthermia Analgosedation: propofol Cardiovascular Pulse Min: 86 Max: 147, BP Min: 100/83 Max: 174/91 # HTN - continue metoprolol 25 BID SBP goal < 160 Respiratory No active issues - Aspiration precautions - Elevate head of bed - Maintain oxygen saturation > 92% - Monitor for respiratory distress Renal/Electrolytes Intake/Output Summary (Last 24 hours) at 10/21/2022 0733 Last data filed at 10/21/2022 0600 Gross per 24 hour Intake 3119.5 ml Output 2695 ml Net 424.5 ml No active issues - Monitor intake and output - Replete electrolytes as needed Infectious Disease Temp (24hrs), Av.8 ??F (37.7 ??C), Min:99 ??F (37.2 ??C), Max:100.4 ??F (38 ??C) No active issues - Monitor for fevers - Ramirez culture if febrile Gastrointestinal No 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 issues - 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 - Diet: NG - GI ppx: Prevacid 30 - Last BM: before admission - BM regimen: senna, miralax Endocrine No active issues - A1c 6 Hematology Recent Labs Component Name 10/21/22 0459 WBC 18.7* HGB 9.4* HCT 27.8* PLTCOUNT 260 No active issues DVT ppx: SCDs Musculoskeletal No active issues Disposition - PT/OT pending Feeds/Fluids: NG tube Analgesia: fentanyl Sedation: propofol Thromboprophylaxis: SCDs HOB: >30 Ulcer Ppx: Prevacid 30 Glucose: A1C 6 SBT: n/a, possible attempt tomorrow BR: senna, miralax Indwelling lines: 2 PIVs, endotracheal tube De-escalation: continue ICU Family: updated at bedside Cordero Kyle Johan Medical Student, MS3 [facility]. Associated attestation - Dary Garvey MD - 10/21/2022 1:22 PM CDT For Medical Student Practice Only * Emir Vail MD - 10/21/2022 7:18 AM CDT I have seen and examined the patient with the resident and I agree with the findings and plan of care as documented by the resident. Date of Service: 10/21/2022 Emir Vail MD Multidisciplinary rounds were held at 9am and the patient's care and recovery plan were reviewed and developed with the assembled team. Consuelo Darby is a 41 year old 41 year old??with GERD, tobacco, presented on 10/19 with Right MCA syndrome s/p TNK. CTA 1 M1 occlusion. S/P mechanical thrombectomy with R M1 recanalization and TICI2b. CT 10/20/22 with edema and mildshift. On exam, lid apraxia and following briskly on right; slight LLE movement. Hx of OCP use. S/Pdecompressive right hemicraniectomy. Mechanism of infarct is ESUS. - Close neurological monitoring. - NSG following - Repeat CT at 0400 daily or if neurologic decline - Holding ASA - MR pending - protein c, s, lupus anticoagulant panel ordered -will need outpatient work-up Problem List Right middle cerebral artery stroke (CMS/HCC) (POA: Unknown) Acute cerebrovascular accident (CVA) due to embolism of right middle cerebral artery (CMS/HCC) (POA: Yes) Nihss score 9 (POA: Yes) Received intravenous tissue plasminogen activator (tPA) in emergency department (POA: Yes) GERD (gastroesophageal reflux disease) (POA: Yes) Hemianopsia (POA: Yes) Weakness (POA: Yes) Left-sided sensory deficit present (POA: Yes) Gaze palsy (POA: Yes) Migraine (POA: Unknown) Hypertension (POA: Unknown) See Resident note for the remaining problem specific plan. 2 MEDICATIONS FOR CURRENT ENCOUNTER: ?? SCHEDULED MEDICATIONS: ?? *Hold/Avoid Medication, Other, 0800 and 1999 ?? *Hold/Avoid Medication, Other, DIRECTED ?? 0.9% NaCl injection 3 mL, Intracatheter, q8h ?? 0.9% NaCl injection 3 mL, Intracatheter, q8h ?? artificial tears ophthalmic ointment, Each Eye, q8h ?? chlorhexidine (Peridex) 0.12 % oral solution 15 mL, Mouth/Throat, BID ?? iopamidol (Isovue 370) 76 % contrast, Intravenous, Contrast - Once ?? lansoprazole (Prevacid) suspension 30 mg, Enteral Tube, QDAY BEFORE BREAKFAST ?? loratadine (Claritin) tablet 10 mg, Enteral Tube, QDAY ?? metoprolol tartrate IR (Lopressor) tablet 25 mg, Enteral Tube, BID ?? polyethylene glycol 3350 (Miralax) packet 17 g, Enteral Tube, QDAY ?? potassium - sodium phosphates (Phos-Nak) powder 2 packet, Oral, TID WC ?? senna-docusate (Senokot-S) tablet 1 tablet, Enteral Tube, QDAY ?? tamsulosin (Flomax) capsule 0.4 mg, Oral, QDAY ?? verapamil (Isoptin) tablet 40 mg, Enteral Tube, q8h ?? vitamin D3 (Cholecalciferol) 25 MCG (1000 UNITS) tablet 2,000 Units, Enteral Tube, QDAY ?? [COMPLETED] acetaminophen (Ofirmev) injection 1,000 mg, Intravenous, Once ?? [COMPLETED] fentaNYL (PF) (Sublimaze) injection 25 mcg, Intravenous, Once ?? [] acetaminophen (Ofirmev) injection 1,000 mg, Intravenous, Once ?? CONTINUOUS MEDICATIONS: ?? fentaNYL 2500 mcg/50mL (Sublimaze) infusion, Intravenous, Continuous ?? norepinephrine (Levophed) 8 mg/250 ml D5 infusion premix, Intravenous, Continuous ?? propofol (Diprivan) infusion, Intravenous, Continuous ?? PRN MEDICATIONS: ?? Or ?? 0.9% NaCl injection 1-10 mL, Intracatheter, PRN ?? 0.9% NaCl injection 3 mL, Intracatheter, PRN ?? dextrose 10 % IV bolus, Intravenous, PRN ?? dextrose 10 % IV bolus, Intravenous, PRN ?? fentaNYL (Sublimaze) bolus from infusion bag 50 mcg, Intravenous, BOLUS FROM BAG PRN ?? glucagon (Glucagen) injection 1 mg, Subcutaneous, PRN ?? glucose (Diabetic Use) (Dex4 Glucose) oral liquid, Oral, PRN ?? glucose (Diabetic Use) oral gel, Oral, PRN ?? glucose chew tablet 4 tablet, Oral, PRN ?? vancomycin (Vancocin) injection, , PRN Patient Vitals for the past 24 hrs: Temp Pulse Resp BP 10/21/22 0531 -- -- -- 147/77 10/21/22 0506 -- -- -- 132/72 10/21/22 0500 -- -- 18 -- 10/21/22 0400 (!) 100.4 ??F (38 ??C) 98 30 130/63 10/21/22 0300 (!) 100.4 ??F (38 ??C) 92 (!) 33 130/73 10/21/22 0236 (!) 100.4 ??F (38 ??C) 91 16 -- 10/21/22 0200 (!) 100.4 ??F (38 ??C) 89 16 129/63 10/21/22 0129 -- -- -- 113/69 10/21/22 0124 -- -- -- 110/70 10/21/22 0121 -- -- -- 100/83 10/21/22 0111 -- -- -- 120/66 10/21/22 0106 -- -- -- 116/60 10/21/22 0101 -- -- -- 114/63 10/21/22 0100 (!) 100.2 ??F (37.9 ??C) 86 18 114/63 10/21/22 0056 -- -- -- 112/65 10/21/22 0053 -- 92 -- -- 10/21/22 0045 (!) 100.2 ??F (37.9 ??C) 87 18 118/71 10/21/22 0000 (!) 100.2 ??F (37.9 ??C) 102 18 137/81 10/20/22 2344 -- 105 -- 143/78 10/20/22 2318 -- -- -- 136/82 10/20/22 2300 99.7 ??F (37.6 ??C) 100 18 142/76 10/20/220 -- 105 18 -- 10/20/222124 99.1 ??F (37.3 ??C) 102 18 -- 10/20/222123 -- (!) 115 -- -- 10/20/22 1810 99 ??F (37.2 ??C) 102 21 109/64 10/20/22 1805 -- 101 13 108/67 10/20/22 1804 -- -- 12 -- 10/20/22 1800 -- (!) 110 20 116/60 10/20/22 1755 -- 101 14 115/65 10/20/22 1750 -- (!) 118 12 126/70 10/20/22 1745 99.1 ??F (37.3 ??C) 109 14 137/75 10/20/22 1730 -- 98 18 130/88 10/20/22 1715 -- 101 19 126/70 10/20/22 1700 -- (!) 117 15 122/76 10/20/22 1645 -- 106 24 130/70 10/20/22 1630 -- (!) 112 (!) 42 117/79 10/20/22 1615 -- (!) 110 20 116/68 10/20/22 1600 99.3 ??F (37.4 ??C) 105 11 127/69 10/20/22 1545 -- 105 15 125/76 10/20/22 1530 -- (!) 115 (!) 8 128/76 10/20/22 1515 -- (!) 131 27 -- 10/20/22 1500 -- (!) 111 20 145/82 10/20/22 1445 -- (!) 124 20 139/75 10/20/22 1430 -- (!) 123 21 144/75 10/20/22 1415 -- (!) 125 12 141/81 10/20/22 1400 -- 103 18 132/69 10/20/22 1345 -- (!) 113 20 136/79 10/20/22 1330 -- (!) 113 19 140/74 10/20/22 1315 -- (!) 113 22 135/76 10/20/22 1300 -- (!) 120 21 133/77 10/20/22 1245 -- (!) 115 22 137/73 10/20/22 1230 -- (!) 114 19 137/84 10/20/22 1215 -- (!) 116 20 135/76 10/20/22 1200 99.1 ??F (37.3 ??C) (!) 133 16 141/78 10/20/22 1145 -- (!) 122 20 132/71 10/20/22 1130 -- (!) 112 20 -- 10/20/22 1115 -- (!) 114 19 -- 10/20/22 1100 -- (!) 147 22 -- 10/20/22 1045 -- (!) 126 21 -- 10/20/22 1030 -- (!) 134 (!) 34 -- 10/20/22 1015 -- (!) 125 25 -- 10/20/22 1000 -- (!) 123 22 145/67 10/20/22 0945 -- (!) 124 16 -- 10/20/22 0930 -- (!) 130 25 -- 10/20/22 0915 -- (!) 129 21 -- 10/20/22 0845 -- (!) 118 22 -- 10/20/22 0830 -- (!) 122 20 -- 10/20/22 0815 -- (!) 114 19 139/74 10/20/22 0730 98.9 ??F (37.2 ??C) (!) 128 (!) 38 -- Recent Labs Component Name 10/21/22 0459 10/20/22 0302 10/19/22 0824 NA 142 138 139 CL 115* 108* 108* CO2 16* 21* 21* BUN 12 6* 13 CREATININE 0.64 0.50* 0.84 CALCIUM 8.2* 8.2* 8.9 PHOS 2.2* - - Recent Labs Component Name 10/21/22 0459 10/20/22 1640 10/20/22 0302 10/19/22 0824 WBC 18.7* - 19.5* 10.9* RBC 2.98* - 3.83 4.73 HGB 9.4* 12.0 11.9* 14.4 HCT 27.8* 36.6 35.4 42.6 Recent Labs Component Name 10/20/22 0302 06/15/22 0757 CHOL 173 204* TRIG 201* 251* HDL 42 37* LDLCALC 91 117* Recent Labs Component Name 10/20/22 1015 HGBA1C 6.0* EAG 126 Recent Labs Component Name 10/21/22 0459 10/20/22 0302 10/19/22 0824 PLTCOUNT 260 292 342 * Shauna Martines RN - 10/21/2022 6:20 AM CDT Problem: ELOPEMENT/ABDUCTION Goal: Risk for elopement &/or abduction during hospitalization is minimized Outcome: Progressing Problem: Safety related to restraint use Goal: Absence of injury while restrained Outcome: Progressing Problem: Fall Risk Goal: Fall risk and fall related injury risk are minimized (interventions related to the fall risk can be found in the flowsheet documentation) Outcome: Progressing Problem: Skin Integrity Goal: Skin integrity is maintained or improved Outcome: Progressing Problem: Pain/Discomfort Goal: Patient exhibits reduced pain/discomfort as evidenced by pain scores Outcome: Progressing Goal: Patient uses pharmacological and non-pharmacological pain management strategies. Outcome: Progressing Problem: Neurological Deficit Goal: Neurological status is stable or improving Outcome: Progressing Problem: Hemodynamic Status/Cardiac Output Goal: Patient has stable vital signs and fluid balance Outcome: Progressing Problem: Oxygenation/Respiratory Function Goal: Respiratory rate/effort will be within specified limits Outcome: Progressing Problem: Aspiration Precautions Goal: Patient's risk of aspiration is minimized Outcome: Progressing Problem: Glycemic Control Goal: Clinical indication of glycemia balance is achieved Outcome: Progressing Problem: Knowledge Deficit,Education,Discharge Plan Goal: The patient/family will understand cerebrovascular disease and its symptoms, treatment and management Outcome: Progressing * Jorge Dodd - 10/21/2022 12:20 AM CDT Chaplain Patel followed family of pt throughout the evening assisting family with information from team while in OR and while family waited to see pt in ICU room post surgery. Accompanied family to bedside. Offered care and support and prayer. Pt's Salo is staying overnight. Opportunity to offer care and support to Salo after family left. Offered reflective listening. 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 Pt and Salo have two daughters, 6 and 15. Encouraged Salo in his honest conversation with the girls. Gave report to Cristina dallas for follow up overnight. 309 Jorge Dodd 10/21/2022 12:25 AM * Jackelyn Flores RN - 10/20/2022 6:17 PM CDT Problem: ELOPEMENT/ABDUCTION Goal: Risk for elopement &/or abduction during hospitalization is minimized Outcome: Progressing Problem: Fall Risk Goal: Fall risk and fall related injury risk are minimized (interventions related to the fall risk can be found in the flowsheet documentation) Outcome: Progressing Problem: Skin Integrity Goal: Skin integrity is maintained or improved Outcome: Progressing Problem: Pain/Discomfort Goal: Patient exhibits reduced pain/discomfort as evidenced by pain scores Outcome: Progressing Goal: Patient uses pharmacological and non-pharmacological pain management strategies. Outcome: Progressing Goal: Patient verbalizes acceptable level of pain relief and ability to engage in desired activity. Outcome: Progressing Problem: Neurological Deficit Goal: Neurological status is stable or improving Outcome: Progressing Problem: Hemodynamic Status/Cardiac Output Goal: Patient has stable vital signs and fluid balance Outcome: Progressing Problem: Oxygenation/Respiratory Function Goal: Respiratory rate/effort will be within specified limits Outcome: Progressing Problem: Mobility Goal: Patient's mobility/activity will be maintained as optimum level for age, diagnosis and physical limitations Outcome: Progressing Goal: Continuum of care needs are further met through referral to outpatient services when appropriate. Outcome: Progressing Goal: Patient reports the ability to perform Activities of Daily Living. Outcome: Progressing Problem: Communication Impairment/Dysarthria Goal: Ability to express needs and understand communication Outcome: Progressing Problem: Nutrition Goal: Nutritional status is improving Outcome: Progressing Problem: Aspiration Precautions Goal: Patient's risk of aspiration is minimized Outcome: Progressing Problem: Glycemic Control Goal: Clinical indication of glycemia balance is achieved Outcome: Progressing Problem: Knowledge Deficit,Education,Discharge Plan Goal: The patient/family will understand cerebrovascular disease and its symptoms, treatment and management Outcome: Progressing Problem: Oral Intake: Inadequate oral intake Goal: Total intake will meet estimated nutrient needs Outcome: Progressing Problem: Swallowing Goal: LTG - Patient will tolerate the least restrictive diet consistency to allow for safe consumption of daily meals Outcome: Progressing Problem: Transfers Goal: STG - Transfer from bed to chair Outcome: Progressing Problem: Safety related to restraint use Goal: Absence of injury while restrained Outcome: Adequate for Discharge * Jorge Dodd - 10/20/2022 5:49 PM CDT Civil Techniciandewayne Patel found pt's father in hallway crying. Dad shared that pt was headed to surgery emergently to remove part of her skull . Met mom and pt's spouse Salo. Offered pastoral presence and prayerfor mom and dad. Family is waiting in [facility]. Surgeon met family and knows where to follow up with them. This signing teacher will follow up. Ascom: [phone] Jorge Dodd 10/20/2022 5:51 PM * Rima Agarwal - 10/20/2022 3:08 PM CDT [facility] Physical Medicine and Rehabilitation Occupational Therapy Initial Evaluation Note Patient: Consuelo Darby Med Record Number: [id number] Date of : 1980 Age: [age] year old PPE worn by staff: gloves;mask - procedural PPE worn by patient: gown - patient, clean;socks - clean Co-treat with PT Tech: no Recommendations: Discharge Discharge Equipment Recommendations: To Be Determined OT Discharge Recommendations: Patient would benefit from intensive 3-hour multidisciplinary therapy This recommendation is made due to ongoing intensive OT functional needs: motivated to participate in therapy;functional mobility is significantly below baseline;patient has the need for more than one skilled therapy service Recommended Transportation Method: Stretcher/Ambulance In addition to the 1:1 evaluation of the patient, additional eval time was spent completing the chart review prior to the assessment, completing the multidisciplinary plan of care and education plan post evaluation and communicating results of the eval to other treatment team members. Nurse contacted regarding patient status and/or discharge plan. Physician Orders: Evaluation and Treat Activity Level: as tolerated PRECAUTIONS: FALLS SAFETY DIAGNOSIS: Patient Active Problem List: GERD (gastroesophageal reflux disease) Hemianopsia Weakness Left-sided sensory deficit present Gaze palsy Acute cerebrovascular accident (CVA) due to embolism of right middle cerebral artery (CMS/HCC) Nihss score 9 Received intravenous tissue plasminogen activator (tPA) in emergency department Migraine Hypertension Past Medical History: Diagnosis Date ??? Abdominal pain, right upper quadrant ??? GERD (gastroesophageal reflux disease) ??? History of hypertension gestational hypertension Home Situation: Type of Residence: Private Residence Lives with:: Spouse;Daughter;Children Handrails: Outdoor Home Structure: One Story Primary Bedroom: First Floor Primary Bathroom: First Floor Bathroom : Walk in Shower Equipment at Home: Walker-2 Wheeled;Chair-Shower Prior Level of Functioning: Mobility: Ambulate-In Community;Ambulate-In Home ;Driving Fallen Within 6 Mos: 1 Have Help at Home?: Yes, there is help at home now Who assists you at home?: Friends/Family (, and daughter is old enough to help, parents liveright next door.) How often is assistance provided?: was IND at baseline Oxygen at Home: No Activity at Home: Active;Driving;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[employer]) Vision: Corrected with glasses Hearing Exceptions: No impairment Who manages medications?: SELF Pain Assessment: Pain Location #1 Pain Scale/Observation: (unable to determine, pt is non verbal) OBJECTIVE: At start of therapy session, patient found in bed and with no alarm General Appearance: 41 year CF in NAD LDA: IV's: Peripheral line and Arterial line and Oxygen Nasal Cannula Edema: No edema noted REFER TO PT NOTE FOR VITALS Observations: VSS on RA Mental Status/Cognition: Orientation Level: Unable to Obtain (Pt can communicte with thumbs up 2/2 expressive aphasia) Cognition: Follows Commands-Consistent;Attention/concentration-normal for age;Processing-delayed;Impulsive (Pt tried to move before therapist were finished setting up) Note: Pt had expressive communication deficits and is able to give a thumbs up when in agreement tosomething, to demonstrate understanding or to say yes but was drowsy throughout session. Follows all simple commands, slightly impulsive but receptive to redirection. UE ROM: RUE: AROM WFL LUE: Deficits noted - left sided weakness for AROM, PROM intact Strength: RUE: WFL LUE: deficits noted - 0 out of 5 grossly UE Tone RUE: no abnormal tone noted LUE: flaccid Coordination: deficits noted in FNF , deficits noted in rapid alternating movement UE Proprioception RUE: WFL LUE: deficits noted UE Sensation RUE: intact LUE: no complaints of numbness or tingling Perception: Inattention/Neglect: Cues to attend left visual field;Cues to attend to left side of body (Pt presents with left sided neglect, right gaze preference, unable to track past midline.) Visual Motor Tracking: L eye does not track laterally;L eye does not track medially Note: During vision screen, pt was not unable to track therapist finger to the left. Pt was only able to track to the midline and did not demonstrate any head turning to go towards the left either. Some nystagmus was also noted. Mobility: A gait belt and non-slip socks were used for all out of bed activity this date. Bed Mobility: Supine to Sit: X 2;Moderate Assistance with HOB in semi-fowlers position Sit to Supine: (session ended in the bedside chair) Transfers: Sit to Stand: X 2;Maximum Assistance Stand to Sit: Maximum Assistance Bed to Chair: Maximum Assistance to Right Type of Transfer: Stand Pivot Transfer Transfer Device: Gait belt Functional Ambulation: Functional ambulation not attempted at this time due to pt's current endurance, drowsiness and leftsided weakness. Functional ambulation will be attempted at a more appropriate time. Balance: Balance Scales/Tests Used: Sitting: Static/Dynamic Sitting - Static: Fair - Sitting - Dynamic: Poor +;With One Upper Extremity Support Standing - Static: Poor;Without Upper Extremity Support (squad pivot for transfer) Standing - Dynamic: Poor Activities of Daily Living Feeding: Activity Does Not Occur Oral Facial Hygiene: Maximal Assistance (to help clean up saliva/drool) Bathing: Activity Does Not Occur Upper Body Dressing: Activity Does Not Occur Lower Body Dressing: Maximal Assistance (for socks) Toileting: Activity Does Not Occur (Pt is currently being straight cathed) Splint Issued/Checked: none ACTIVITY TOLERANCE: Patient's activity tolerance: fair. Modified [place]: Current Modified Maryann Score: 5 AM-PAC 6 Clicks Daily Activity Raw Score:: 9 TREATMENT / EDUCATION / INTERVENTIONS: While performing OT, Patient was instructed in:functional mobility training, stroke education and precautions Presented to patient who demonstrates Good understanding of instructions given. INFORMED CONSENT TO TREATMENT: Plan of care including recommended therapy, goals and frequency, discussed with patient who understands and agrees to proceed. ASSESSMENT: Functional performance limited due to: limited activities of daily living, decreased functional mobility, decreased functional balance, upper extremity functional impairments, decreased endurance andactivity tolerance, decreased coordination and decreased visual motor skills. Short Term Goals: Goal Formation With patient Patient will perform upper extremity dressing with minimal assist Patient will perform lower extremity dressing with minimal assist Patient will perform toileting with moderate assist Group Home Goal(s): Patient to discharge to appropriate next level of inpatient care. Plan: Plan: ADL training Adaptive equipment training Functional transfer training Functional balance training Endurance training Bed mobility training If patient is discharged from the facility, this note serves as a discharge summary if further occupational therapy visits did not occur. Refer to filed flowsheet for further details. Following therapy session, patient left in patient bedside chair, with green waffle cushion in place, with chair alarm on, with call light within reach, with family in room, with RN, Jackelyn aware. * Cass Benjamin SLP - 10/20/2022 11:50 AM CDT [facility] Physical Medicine and Rehabilitation Bedside Swallow Assessment Patient: Consuelo Darby Med Record Number: [id number] Date of : 1980 Age: [age] year old Patient Active Problem List: GERD (gastroesophageal reflux disease) Hemianopsia Weakness Left-sided sensory deficit present Gaze palsy Acute cerebrovascular accident (CVA) due to embolism of right middle cerebral artery (CMS/HCC) Nihss score 9 Received intravenous tissue plasminogen activator (tPA) in emergency department Migraine Hypertension Past Medical History: Diagnosis Date ??? Abdominal pain, right upper quadrant ??? GERD (gastroesophageal reflux disease) ??? History of hypertension gestational hypertension In addition to the 1:1 evaluation of the patient, additional eval time was spent completing the chart review prior to the assessment, completing the multidisciplinary plan of care and education plan post evaluation and communicating results of the eval to other treatment team members. PPE: PPE worn by staff: gloves;mask - procedural PPE worn by patient: gown - patient, clean Impressions: Pt presents with suspected moderate-severe oropharyngeal dysphagia with anterior spillage across consistencies with suspected degree of pharyngeal dysphagia given sluggish pharyngeal swallow response with PO trials provided at the bedside. Recommend Pt remain NPO with plan for NG placement for nutritional support and medication administration. SIGNALING PROJECT ENGINEER will continue to follow up for ongoin g assessment with further recommendations to follow. Recommendations: Diet Liquids Recommendation: NPO Diet Solids Recommendation: NPO Recommended Form of Meds: NPO;Feeding Tube Recommended Tests/Consults: Recommendations: Dysphagia Treatment;NPO;With Alternative Nutrition Discharge Recommendations: Patient will benefit from intense 3 hour per day multidisciplinary inpatient therapies Speech therapy is recommended to improve swallow function. SUBJECTIVE: Patient Goals: None stated, Pt nonverbal during visit Pain Assessment: Unable to determine given Pt nonverbal, no visible distress noted OBJECTIVE: Level of Consciousness: alert, suspect severe expressive aphasia given Pt was nonverbal, no commandfollowing appreciated during visit, question receptive language deficits vs oral apraxia. Orientation Level: unable to obtain Positioning: Seated in a chair Respiratory Status: room air Oral/Motor: Dentition: Normal Oral Hygiene : Within Functional Limits Labial/Facial: Impaired Tongue: Impaired Vocal Quality: Impaired Velopharyngeal Status: Impaired Oral Motor Coordination: Impaired Controls Secretions: No Swallow Trials: Thin Liquid: Presentation: (straw as pipette) Oral: Increased Anterior to Posterior Transit;Spillage Left;Spillage Right;Delayed Initiation Pharyngeal: Delayed Swallow;Decreased Laryngeal Elevation (audibly sluggish pharyngeal swallow, concerning for silent aspiration) Puree: Presentation: Spoon-Assisted Oral: Increased Anterior to Posterior Transit;Spillage Left;Spillage Right Pharyngeal: Delayed Swallow;Decreased Laryngeal Elevation Assessment: Risk For Aspiration: Moderate Primary Diagnostic Impression - Oral: Moderate;Severe Primary Diagnostic Impression - Pharyngeal: Moderate Education/Interventions: While performing SIGNALING PROJECT ENGINEER, Patient was instructed in: results of swallow evaluation and goals of treatment . Patient and spouse demonstrated Good understanding of instructions given. Nurse contacted regarding results of swallow evaluation and recommendations. INFORMED CONSENT TO TREATMENT: Plan of care including recommended therapy, goals and frequency, discussed with patient who understands and agrees to proceed. Short Term Goals Patient will demonstrate an improvement in oropharyngeal swallow function to warrant diet upgrade. Environmental Marketer Goal (s): Patient to be independent/baseline with functional mobility and self care and be able to safely discharge to prior level of care. Plan: Continue NPO status with plan for ongoing SIGNALING PROJECT ENGINEER follow up. Cass Lu M.S., [facility]-SIGNALING PROJECT ENGINEER Speech Language Pathologist [phone] * Bulmaro Ochoa RN - 10/20/2022 11:08 AM CDT Care Coordination Progress Note Anticipated level of care at discharge: Home, Acute Rehab Facility: Anticipated level of care provider: None: Anticipated Discharge Date: 10/26/22: Discharge Plan: Pending patient's progress with medical treatment and care team recommendations.Pending PT, OT, ST evaluation when appropriate. S/p TNK thrombectomy 10/19/22 , q1hr NC Orientation Level: Unable to Obtain (Pt can communicte with thumbs up 2/2 expressive aphasia): Family Support (Name and Phone): Extended Emergency Contact Information Primary Emergency Contact: Hi Darby Address: [address] [place] [address] [place] [address] [facility] Relation: Spouse Secondary Emergency Contact: Sandra Disla [facility] Mobile Relation: Mother Transportation at Discharge: Family: READMISSION RISK SCORE is 15 at 11:11 AM 10/20/2022.: Name: Bulmaro Ochoa RN BSN manager in home [phone] * Tia Morales PT - 10/20/2022 10:37 AM CDT [facility] Physical Medicine and Rehabilitation Physical Therapy Initial Evaluation Note Patient: Consuelo Darby Med Record Number: [id number] Date of : 1980 Age: [age] year old PPE worn by staff: gloves;mask - procedural PPE worn by patient: gown - patient, clean;socks - clean CoEval with OT due to unknown pt tolerance and assist level. Recommendations: Discharge PT Discharge Recommendations: Patient would benefit from intensive 3-hour multidisciplinary therapy This recommendation is made due to ongoing intensive PT functional needs: ability to actively participate in intensive therapy 3 hours/day, 5 days a week;patient has the need for more than one skilled therapy service;motivated to participate in therapy;not at baseline due to impaired ability to complete ADL's;functional mobility is significantly below baseline;likely to return to the community atdischarge with support system;patient and/or caregiver require specialized training;patient demonstrates a significant functional decline and would benefit from skilled therapy intervention to restore function;patient has the ability to progress and demonstrate measurable gains as a result of skilled therapy Recommended Transportation Method: Stretcher/Ambulance In addition to the 1:1 evaluation of the patient, additional eval time was spent completing the chart review prior to the assessment, completing the multidisciplinary plan of care and education plan post evaluation and communicating results of the eval to other treatment team members. Nurse and Occupational Therapy contacted regarding patient status and/or discharge plan. Physician Orders: Evaluation and Treat PRECAUTIONS: Weight Bearing Status: (No WB restrictions noted) Activity Level: Activity as Tolerated Other Precautions: L Neglect/Hemipegia DIAGNOSIS: Patient Active Problem List: GERD (gastroesophageal reflux disease) Hemianopsia Weakness Left-sided sensory deficit present Gaze palsy Acute cerebrovascular accident (CVA) due to embolism of right middle cerebral artery (CMS/HCC) Nihss score 9 Received intravenous tissue plasminogen activator (tPA) in emergency department Migraine Hypertension Past Medical History: Diagnosis Date ??? Abdominal pain, right upper quadrant ??? GERD (gastroesophageal reflux disease) ??? History of hypertension gestational hypertension SUBJECTIVE: Subjective: Pt agreeable to therapy evaluation via thumbs up. Pt presents with expressive aphasia at this time. Pt gives thumbs up for permission for family to assist answering prior level/living situation questions. Pt additionally maintains head turn and gaze towards Right side. PATIENT GOALS: Patient's Primary Concern: Recover enough to return home Home Situation: Type of Residence: Private Residence Lives with:: Spouse;Daughter;Children Steps to Enter: 8 Handrails: Outdoor Home Structure: One Story Primary Bedroom: First Floor Primary Bathroom: First Floor Bathroom : Walk in Shower Equipment at Home: Walker-2 Wheeled;Chair-Shower Prior Level of Functioning: Prior Level of Function Mobility: Ambulate-In Community;Ambulate-In Home ;Driving Fallen Within 6 Mos: 1 Have Help at Home?: Yes, there is help at home now Who assists you at home?: Friends/Family (, and daughter is old enough to help, parents liveright next door.) How often is assistance provided?: was IND at baseline Oxygen at Home: No Activity at Home: Active;Driving;Other (Comment) (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 General Appearance: adult male LDAs: IV's: Peripheral line and Oxygen Nasal Cannula Edema: no edema noted in bilateral lower extremities Vitals: (*Assess the 3 levels of oxygen saturations both for room air and 02 unless rest on room air is 88% or less). Rest BP: 114/84 (art line) HR: 124 Sp02 Sp02 98% Room Air 2 L O2 Ex/Gait/Activity Without 02 BP: HR: 120-135 Sp02 96% Room Air Ex/Gait/Activity With 02 BP: HR: Sp02 L O2 Post Activity BP: 106/53 (77) HR: 122 Sp02 Sp02 96% L O2 Room Air Observations: Pt denied dizziness, chest pain, SOB, and nausea during activity or position changes.In NAD throughout evaluation. Pt left on RA at end of session. Mental Status/Cognition: Level of Consciousness-Adult: Alert Orientation Level: Unable to Obtain (Pt can communicate with thumbs up, but does not verbalize 2/2 expressive aphasia) Cognition: Processing-delayed;Judgement-decreased;Safety awareness- decreased;Impulsive;Follows Commands-Consistent;Attention/concentration-normal for age ROM: RLE: AROM WFL LLE: PROM WFL, flaccid Strength: RLE:WFL LLE: flaccid Tone: RLE: no abnormal tone noted LLE: flaccid Coordination: RLE: WNL LLE: LLE flaccid at this time Sensation: RLE: intact, thumbs up to light touch RLE LLE: pt did not indicate that she could feel light touch on LLE Perception: Inattention/Neglect: Cues to attend left visual field;Cues to attend to left side of body (Pt unable to complete head turn or track eyes past midline towards L side) Visual Motor Tracking: L eye does not track laterally;Requires cues, head turns, or add eye shifts to track (Noted horizontal nystagmus when pt head manually turned towards L; pt's gaze remained towards R side while head turn to L) Mobility: A gait belt and non-slip socks were used for all out of bed activity this date. Bed Mobility: Supine to Sit: Moderate Assistance;X 2;Requires Verbal Cues for Technique;Requires Physical Cues for Technique with HOB in semi-fowlers position Sit to Supine: Activity Does Not Occur (Pt up in recliner at end of eval.) Transfers: Sit to Stand: Maximum Assistance;X 2 Stand to Sit: Maximum Assistance Bed to Chair: Maximum Assistance to Right;X 2 (Max A initially improving to Max x 1 during transfer) Type of Transfer: Stand Pivot Transfer Transfer Device: Gait belt Gait: Weight Bearing Status: (No WB restrictions noted) Distance Ambulated: (Pt unable to ambulate at this time 2/2 L hemiplegia and L sided neglect.) Balance: Balance Scales/Tests Used: Sitting: Static/Dynamic;Standing: Static/Dynamic Sitting - Static: Fair -;With One Upper Extremity Support Sitting - Dynamic: Poor +;With One Upper Extremity Support Standing - Static: Poor;Without Upper Extremity Support Standing - Dynamic: Poor ACTIVITY TOLERANCE: Patient's activity tolerance: fair plus TREATMENT/INTERVENTIONS: evaluation, bed mobility training, transfer training, balance activities and monitoring of vitals Modified Maryann: Current Modified [place] Score: 5 AM-PAC 6 Clicks Mobility Raw Score:: 10 EDUCATION: While performing PT, Patient was instructed in:functional mobility training, safety awareness/fall precautions , stroke education and precautions, discharge planning, use of call light Presented to patient who demonstrates thumbs up for majority of education and understanding of instructions given. Pt's family members educated on L neglect and strategies to help begin to improve attention to L side of body. INFORMED CONSENT TO TREATMENT: Plan of care including recommended therapy, goals and frequency, discussed with patient who understands and agrees to proceed. ASSESSMENT: Patient would benefit from additional Physical Therapy sessions to achieve the following functionalgoals to enhance independence. Short Term Goals: Goal Formation With patient/family Patient will perform bed mobility with moderate assist Patient will transfer sit to/from stand with moderate assist Patient will transfer bed to/from chair with moderate assist Group Home Goal(s): Patient to discharge to appropriate next level of inpatient care. Equipment Issued: gait belt Plan: Plan: Gait [...] patient left in patient bedside chair, with chair alarm on, with call light within reach, with family in room, with RN, Jackelyn aware, with therapy cues visible on white board. All lines, monitors, IV's, equipment in place and intact pre and post visit. Patient was in no discomfort and had no additional needs at conclusion of PT eval. * Cass Benjamin, SIGNALING PROJECT ENGINEER - 10/20/2022 10:33 AM CDT [facility] Department of Physical Medicine & Rehabilitation Progress Note Patient: Consuelo Darby Med Record Number: [id number] Date of : 1980 Age: [age] year old 10/20/22 1033 Missed Visit Missed Visit Pt with other disciplines x2 at time of visit this morning, will plan to follow up agian today for swallow eval Cass Lu M.S., [facility]-SIGNALING PROJECT ENGINEER Speech Language Pathologist [id number] * Jaime Drew MD - 10/20/2022 10:05 AM CDT Images from the original note were not included. Subjective 41 year old with GERD, tobacco, presented on 10/19 with left sided neglect (sensory and visual), LWK6:30, s/p TNK. CTA 1 M1 occlusion. Patient was taken to IR for a mechanical thrombectomy with R M1 recanalization and TICI2b results. Admitted to the ICU for post TNK and MT watch. BP within range. Tachycardic to 120-130s. +ve urinary retention. Moves right arm and leg in responses to commands and to communicate. Objective Patient Vitals for the past 6 hrs: Temp Pulse Resp BP BP Method 10/20/22 0845 -- (!) 118 22 -- -- 10/20/22 0830 -- (!) 122 20 -- -- 10/20/22 0815 -- (!) 114 19 139/74 Automatic 10/20/22 0730 98.9 ??F (37.2 ??C) (!) 128 (!) 38 -- -- 10/20/22 0715 -- (!) 120 20 -- -- 10/20/22 0700 -- (!) 112 21 141/70 Automatic 10/20/22 0600 -- (!) 121 22 127/66 Automatic 10/20/22 0500 -- (!) 123 18 140/65 Automatic Recent Labs Component Name 10/20/22 0302 10/19/22 0824 10/19/22 0808 06/15/22 0757 12/09/18 0812 07/25/18205503/01/16 0817 SODIUM - - - - 138 135* 141 POTASSIUM 3.6 4.2 - 5.1* 3.8 3.8 3.6 CHLORIDE - - - - 102 103 110* CO2 21* 21* - 23 24 21* 21* BUN 6* 13 - 12 10 7 9 CREATININE 0.50* 0.84 - 0.74 0.82 0.93 0.60 EGFR >90 >90 >90 >90 >60 >60 >60 GLUCOSE 140* 109 - 104 120* 105 83 CALCIUM 8.2* 8.9 - 8.9 9.4 9.2 8.1* Recent Labs Component Name 10/20/22 0302 WBC 19.5* HGB 11.9* HCT 35.4 PLTCOUNT 292 Physical Examination: Tachycardic to 120s Mental Status: somnolent, follows commands on right side CN: eyes are colosed, face symmetric Motor: left side weakness Sensory: neglect left side Gait was not assessed due to patient factors Assessment and Plan 41 year old with GERD, tobacco, presented on 10/19 with Right MCA syndrome s/p TNK. CTA 1 M1 occlusion. Patient was taken to IR for a mechanical thrombectomy with R M1 recanalization and TICI2b results. CT with edema and mild shift. - Please discuss case with NSGY - Continue serial neuroexams DWA Dr. Walter ?? Associated attestation - Jim Walter MD - 10/20/2022 10:22 AM CDT I saw and examined the [...] record, and communicating results to the patient/family/caregiver. Stroke Neurology and Neurocritical Care's input regarding management is most appreciated, particularly given the possibility of malignant edema. I met with her Mother, Sister and in the presence of the patient and discussed the procedure while reviewing imaging. I made it clear that the Primary Team is Stroke Neurology but made myself available if I can be of help. Jim Walter MD * Stephanie Hester MD - 10/20/2022 9:18 AM CDT Stroke Service Daily Progress Note Consuelo Darby Age: [age] year old Date of : 1980 Date of Admission: 10/19/2022 Hospital Day: 1 Subjective Consuelo Darby is a 41yo M who developed acute onset L sided weakness, L-sided sensory deficits, and dysarthria. L sided weakness resolved in route and dysarthria improved in route. On arrival patient noted to L gaze plasy, L hemainopsia, mild dysarthria, and extinction. NIHSS: 7. Patient was givenTNK and code IVR was activated. TICI2b revascularization of the R MCA M1 occlusion. Admitted to ICUfor post-thrombectomy monitoring. Repeat CTH showing edema in R MCA territory. Will CTM closely with repeat CT H in the AM tmmrw. ?? Medical history significant for hemiplegic migraine, GERD, GENESIS ?? Interval History: Patient had no acute events occur overnight. Repeat CTH showing R MCA infarct, midline shift. Closely monitoring. Objective Patient Vitals for the past 24 hrs: BP Temp Temp src Pulse Resp SpO2 10/20/22 0845 -- -- -- (!) 118 22 99 % 10/20/22 0830 -- -- -- (!) 122 20 99 % 10/20/22 0815 139/74 -- -- (!) 114 19 97 % 10/20/22 0745 -- -- -- -- -- 98 % 10/20/22 0730 -- 98.9 ??F (37.2 ??C) Oral (!) 128 (!) 38 98 % 10/20/22 0715 -- -- -- (!) 120 20 98 % 10/20/22 0700 141/70 -- -- (!) 112 21 98 % 10/20/22 0600 127/66 -- -- (!) 121 22 97 % 10/20/22 0500 140/65 -- -- (!) 123 18 98 % 10/20/22 0400 -- 97.6 ??F (36.4 ??C) Axillary (!) 130 24 98 % 10/20/22 0300 -- -- -- (!) 125 25 98 % 10/20/22 0200 133/58 98.3 ??F (36.8 ??C) Axillary (!) 121 25 98 % 10/20/22 0100 -- -- -- (!) 123 14 99 % 10/20/22 0045 155/84 -- -- -- -- -- 10/20/22 0000 137/61 98.2 ??F (36.8 ??C) Axillary (!) 112 20 98 % 10/19/22 2300 140/78 -- -- 107 23 98 % 10/19/22 2200 140/78 98.4 ??F (36.9 ??C) Axillary (!) 120 31 98 % 10/19/22 2100 136/82 -- -- 108 20 97 % 10/19/22 2047 144/79 -- -- -- -- -- 10/19/221999 132/71 97.7 ??F (36.5 ??C) Axillary (!) 137 14 97 % 10/19/22 1950 -- -- -- (!) 116 17 98 % 10/19/22 1945 -- -- -- (!) 125 16 97 % 10/19/22 1930 -- -- -- (!) 113 25 97 % 10/19/22 1915 -- -- -- (!) 116 25 97 % 08/10/23 1900 137/97 -- -- (!) 131 14 97 % 10/19/22 1845 -- -- -- (!) 110 (!) 0 98 % 10/19/22 1830 -- -- -- (!) 113 17 97 % 10/19/22 1815 -- -- -- (!) 121 26 97 % 10/19/22 1800 156/83 -- -- (!) 134 30 97 % 10/19/22 1745 -- -- -- (!) 118 28 98 % 10/19/22 1730 -- -- -- (!) 114 26 97 % 10/19/22 1715 -- -- -- (!) 120 26 97 % 10/19/22 1700 135/78 -- -- (!) 113 25 97 % 10/19/22 1645 -- -- -- (!) 116 26 97 % 10/19/22 1630 -- -- -- (!) 112 26 97 % 10/19/22 1615 126/84 -- -- (!) 112 27 98 % 10/19/22 1600 146/80 98.4 ??F (36.9 ??C) Oral (!) 121 29 97 % 10/19/22 1545 130/77 -- -- 106 26 98 % 10/19/22 1530 123/80 -- -- 105 28 98 % 10/19/22 1515 135/85 -- -- 100 25 98 % 10/19/22 1500 132/82 -- -- 99 23 98 % 10/19/22 1445 135/86 -- -- 96 27 99 % 10/19/22 1433 151/89 -- -- 94 22 99 % 10/19/22 1430 137/85 -- -- 97 27 99 % 10/19/22 1415 141/79 -- -- (!) 110 23 98 % 10/19/22 1414 152/91 -- -- 109 -- -- 10/19/22 1400 140/78 -- -- (!) 112 23 97 % 10/19/22 1345 138/77 -- -- (!) 120 24 98 % 10/19/22 1330 135/81 -- -- (!) 128 21 98 % 10/19/22 1315 132/82 -- -- (!) 114 25 98 % 10/19/22 1300 -- -- -- (!) 130 20 95 % 10/19/22 1245 120/73 -- -- 101 23 93 % 10/19/22 1230 125/74 -- -- 104 24 94 % 10/19/22 1215 123/72 -- -- (!) 111 21 95 % 10/19/22 1200 135/78 -- -- (!) 117 25 95 % 10/19/22 1145 123/66 -- -- (!) 112 20 94 % 10/19/22 1130 -- -- -- (!) 112 22 99 % 10/19/22 1115 -- 97.3 ??F (36.3 ??C) Axillary (!) 112 18 99 % 10/19/22 1100 -- -- -- (!) 110 23 99 % Intake/Output Summary (Last 24 hours) at 10/20/2022 0918 Last data filed at 10/20/2022 0627 Gross per 24 hour Intake 4699.15 ml Output 6125 ml Net -1425.85 ml Exam: Cortical Function Mental Status Awake, alert, follows commands Orientation aphasia Language aphasia Visual Powell Intact bilaterally to confrontation Neglect No visual neglect noted, no tactile neglect noted Cranial Nerves II Pupils 3 mm and bilaterally reactive to light. Fundoscopic exam not performed. VIII Hearing is intact bilaterally to finger rub. III/IV/ Extraocular muscles intact. No diplopia, ptosis, nystagmus or convergence abnormalities noted. IX/X Palate elevated symmetrically without phonation abnormalities noted. V Facial sensation symmetric to light touch and intact bilaterally. Corneal reflex not examined. XIHead turning and shoulder shrug are intact. VII No facial palsy noted. XII Tongue is midline with normal movements and no atrophy noted. Motor Function Movement No abnormalities noted Bulk No abnormalities noted Tone No abnormalities noted Moves b/l LE, moves RUE, did not move LUE, but in brace Sensory Light Touch REYNOLD, aphsic Noxious Stimuli Symmetric and intact bilaterally Temperature Not tested Pallesthesia Not tested Cerebellar FNF DALE HKS Right Intact Deferred Intact Left Intact Deferred Intact Gait Deferred Labs: Recent Labs Component Name 08/11/30110/19/2282306/15/22 0757 WBC 19.5* 10.9* 9.6 RBC 3.83 4.73 4.60 HGB 11.9* 14.4 14.1 HCT 35.4 42.6 42.5 Recent Labs Component Name 10/20/22 0302 10/19/2282306/15/22 0757 NA 138 139 138 CL 108* 108* 107 CO2 21* 21* 23 BUN 6* 13 12 CREATININE 0.50* 0.84 0.74 CALCIUM 8.2* 8.9 8.9 No results for input(s): MG in the last 28716 hours. No results for input(s): PHOS in the last 88506 hours. Recent Labs Component Name 10/19/2282310/19/22 0809 PT 12.3 - INR 0.9 0.9 No results for input(s): A1C in the last 23701 hours. Recent Labs Component Name 10/20/2230106/15/22 0757 CHOL 173 204* HDL 42 37* LDLCALC 91 117* TRIG 201* 251* Recent Labs Component Name 06/15/22 0757 TSH 1.873 No results for input(s): CKMB, CKTOTAL, CKMB, TROPONINI, BNP in the last [address] ANGIO BRAIN NECK STROKE Result Date: 10/19/2022 PROCEDURE: CT ANGIO BRAIN NECK STROKE, DATE/TIME OF EXAM: 10/19/2022 8:16 AM, LOCATION [facility] INDICATION: Code Stroke ADDITIONAL CLINICAL INFORMATION: Ordering Provider Reason For Exam: Technologist Note: Additional: EXAMINATION: 1. Computed tomographic (CT) angiography of the head with contrast 2. CT angiography of the neck with contrast TECHNIQUE: CT angiography of the headand neck was obtained after the uneventful administration [...] a concurrent noncontrasted head CT for detailed intracranialfindings including findings suggesting an acute right MCA [...] arteries are patent. The basilar artery is patentpatent. 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 IMPRESSION: 1. [...] Lonnie Rae MD on 10/19/2022 8:[address] BRAIN - Stroke Result Date: 10/19/2022 PROCEDURE: CT BRAIN STROKE, DATE/TIME OF EXAM: 10/19/2022 8:04 AM, LOCATION [facility] INDICATION: Code Stroke ADDITIONAL CLINICAL INFORMATION: Ordering [...] of scott-white matter differentiation in the right frontotemporallobes and the right insula, concerning for an acute infarct. There is suggestion of a hyperdense right MCA likely represent acute thrombus (series 5 image 25). No acute intracranial hemorrhage or intra- or extra-axial fluid collections are identified. The ventricles are of normal size, shape, and morphology. The basal cisterns are patent. No mass effect or midline shift is seen. The scott-white mat ter differentiation is normal. The visualized portions of [...] Lonnie Rae MD on 10/19/2022 8:15 AM Acute cerebrovascular accident (CVA) due to embolism of right middle cerebral artery (CMS/HCC) (POA: Yes) Nihss score 9 (POA: Yes) Received intravenous tissue plasminogen activator (tPA) in emergency department (POA: Yes) GERD (gastroesophageal reflux disease) (POA: Yes) Hemianopsia (POA: Yes) Weakness (POA: Yes) Left-sided sensory deficit present (POA: Yes) Gaze palsy (POA: Yes) Migraine (POA: Unknown) Hypertension (POA: Unknown) Assessment ??Consuelo Darby is a 41 year old female presenting for left sided sensory loss, left gaze palsy,L hemianopsia, and left extinction. Given TNK and taken for mechanical thrombectomy. Will admit to neuro ICU for post-thrombectomy monitoring. Repeat CTH showing R MCA infarct, midline shift. Will closely monitor, repeat CTH in the AM. ?? Stroke Type: Ischemic Stroke Mechanism: ESUS ?? Plan ?? TIA/Stroke Workup; active - Patient will be admitted to the stroke service. - s/p TICI2b revascularization, TNK - CTH, CTA H/N, MRI Brain, MRI H/N - TTE and Telemetry; if TTE negative, consider SARAH - HbA1C, Lipid Panel, Cardiac Enzymes - UDS: (-) - NPO until passes swallow - q1h vitals and neurological checks - SARAH, RF, factor V leiden, complement, protein c, s, lupus anticoagulant panel ?? Blood Pressure Goals: SBP<180, map>70 ? If tPA given, - repeat CT Head or MR Head in 24 hours to evaluate for bleed - if negative at 24 hours, okay to resume aspirin ?? Core Measures TNK administration: yes Anti-thrombotic: holding in setting of TNK Statin: atorvastatin 80mg DVT prophylaxis: SCD Swallow Evaluation: pending PT/OT Evaluation: pending Smoking cessation; will assistant corporation counsel: N/A ?? Neurological ?? R M1 ischemic stroke; active - Neurology critical care will be primary - Post-thrombectomy monitoring - q1h vitals and neurological checks - Stat CT head for any change in neurological examination - MRI Brain or repeat CTH 24 hours post-TNK - Head of bed > 30?? - Avoid hypoglycemia, hyponatremia, and hyperthermia - protein c, s, lupus anticoagulant panel ?? Core Measures TNK administration: yes Anti-thrombotic: holding in setting of TNK Statin: atorvastatin 80mg DVT prophylaxis: SCD Swallow Evaluation: pending PT/OT Evaluation: pending Smoking cessation; will assistant corporation counsel: N/A Migraine - verapamil 40 TID Cardiovascular ? No acute issues ?? - 12-lead EKG - Cardiac markers x 3 - Transthoracic ECHO ordered - Blood pressure goal: SBP<180, map>70 - PRN hydralazine IV and labetalol IV for SBP > 180 - Hemodynamic monitoring ?? HTN: - home metop - PRN hydralazine, labetalol SBP <180 Respiratory ? No acute issues ?? - Aspiration precautions - Elevate head of bed - Maintain oxygen saturation > 92% - Monitor for respiratory distress Gastrointestinal ? No acute issues ?? 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 No acute issues ?? - Monitor intake and output - Replete electrolytes as needed Hematology ? No acute issues ?? - Avoid unnecessary IM injections and arterial punctures during the first 24 hours post-tPA - Evaluate puncture sites for bleeding or hematoma - Evaluate emesis, secretions, stool, and urine for blood - No nasogastric tube insertions during the first 24 hours post-tPA - Transfuse for hemoglobin < 7.0 g/dL Endocrine ? Vit D deficiency - Vit D Infectious Disease ? No acute issues ?? - Monitor for fevers - Ramirez culture if febrile Musculoskeletal ? No acute issues Disposition ? - PT/OT pending ?? Individual Modifiable Risk Factors Hypertension: no Hyperlipidemia: no Diabetes: no Atrial Fibrillation: no Tobacco: no ?? Additional Hospital Problems: GENESIS: cont home amitriptyline HTN: home metoprolol 25mg Vit D Deficiency: Vit D ?? Stephanie Hester MD Neurology Resident * Consuelo Prado Kyle - 10/20/2022 6:50 AM CDT Images from the original note were not included. Neurology Critical Care Progress Note Consuelo Darby Age: [age] year old Date of : 1980 Date of Admission: 10/19/2022 Hospital Day: 1 Subjective HPI: Consuelo Darby is a 41 year old female who developed acute L sided weakness, L sided sensory deficits, and dysarthria. L sided weakness resolved in route and dysarthria improved in route. On arrival, R gaze palsy and L hemianopsia. NIHSS:7. Pt was given TNK. TICI2b revascularization of R MCA M1 occlusion. ICU Timeline: Admitted to NeuroICU for post TNK and thrombectomy monitoring. Started on cardene drip for BP above goal of SBP<140 on 10/19 that was unable to be controlled with prn pushes. Patient needs to lay flat so SIGNALING PROJECT ENGINEER swallow assessment not possible for the time being. Objective Patient Vitals for the past 24 hrs: BP Temp Temp src Pulse Resp SpO2 Height Weight 10/20/22 0600 127/66 -- -- (!) 121 22 97 % -- -- 10/20/22 0500 140/65 -- -- (!) 123 18 98 % -- -- 10/20/22 0400 -- 97.6 ??F (36.4 ??C) Axillary (!) 130 24 98 % -- -- 10/20/22 0300 -- -- -- (!) 125 25 98 % -- -- 10/20/22 0200 133/58 98.3 ??F (36.8 ??C) Axillary (!) 121 25 98 % -- -- 10/20/22 0100 -- -- -- (!) 123 14 99 % -- -- 10/20/22 0045 155/84 -- -- -- -- -- -- -- 10/20/22 0000 137/61 98.2 ??F (36.8 ??C) Axillary (!) 112 20 98 % -- -- 10/19/22 2300 140/78 -- -- 107 23 98 % -- -- 10/19/22 2200 140/78 98.4 ??F (36.9 ??C) Axillary (!) 120 31 98 % -- -- 10/19/22 2100 136/82 -- -- 108 20 97 % -- -- 10/19/22 2047 144/79 -- -- -- -- -- -- -- 10/19/221999 132/71 97.7 ??F (36.5 ??C) Axillary (!) 137 14 97 % -- -- 10/19/22 1950 -- -- -- (!) 116 17 98 % -- -- 10/19/22 1945 -- -- -- (!) 125 16 97 % -- -- 10/19/22 1930 -- -- -- (!) 113 25 97 % -- -- 10/19/22 1915 -- -- -- (!) 116 25 97 % -- -- 10/19/22 1900 137/97 -- -- (!) 131 14 97 % -- -- 10/19/22 1845 -- -- -- (!) 110 (!) 0 98 % -- -- 10/19/22 1830 -- -- -- (!) 113 17 97 % -- -- 10/19/22 1815 -- -- -- (!) 121 26 97 % -- -- 10/19/22 1800 156/83 -- -- (!) 134 30 97 % -- -- 10/19/22 1745 -- -- -- (!) 118 28 98 % -- -- 10/19/22 1730 -- -- -- (!) 114 26 97 % -- -- 10/19/22 1715 -- -- -- (!) 120 26 97 % -- -- 10/19/22 1700 135/78 -- -- (!) 113 25 97 % -- -- 10/19/22 1645 -- -- -- (!) 116 26 97 % -- -- 10/19/22 1630 -- -- -- (!) 112 26 97 % -- -- 10/19/22 1615 126/84 -- -- (!) 112 27 98 % -- -- 10/19/22 1600 146/80 98.4 ??F (36.9 ??C) Oral (!) 121 29 97 % -- -- 10/19/22 1545 130/77 -- -- 106 26 98 % -- -- 10/19/22 1530 123/80 -- -- 105 28 98 % -- -- 10/19/22 1515 135/85 -- -- 100 25 98 % -- -- 10/19/22 1500 132/82 -- -- 99 23 98 % -- -- 10/19/22 1445 135/86 -- -- 96 27 99 % -- -- 10/19/22 1433 151/89 -- -- 94 22 99 % -- -- 10/19/22 1430 137/85 -- -- 97 27 99 % -- -- 10/19/22 1415 141/79 -- -- (!) 110 23 98 % -- -- 10/19/22 1414 152/91 -- -- 109 -- -- -- -- 10/19/22 1400 140/78 -- -- (!) 112 23 97 % -- -- 10/19/22 1345 138/77 -- -- (!) 120 24 98 % -- -- 10/19/22 1330 135/81 -- -- (!) 128 21 98 % -- -- 10/19/22 1315 132/82 -- -- (!) 114 25 98 % -- -- 10/19/22 1300 -- -- -- (!) 130 20 95 % -- -- 10/19/22 1245 120/73 -- -- 101 23 93 % -- -- 10/19/22 1230 125/74 -- -- 104 24 94 % -- -- 10/19/22 1215 123/72 -- -- (!) 111 21 95 % -- -- 10/19/22 1200 135/78 -- -- (!) 117 25 95 % -- -- 10/19/22 1145 123/66 -- -- (!) 112 20 94 % -- -- 10/19/22 1130 -- -- -- (!) 112 22 99 % -- -- 10/19/22 1115 -- 97.3 ??F (36.3 ??C) Axillary (!) 112 18 99 % -- -- 10/19/22 1100 -- -- -- (!) 110 23 99 % -- -- 10/19/22 0833 160/96 -- -- -- -- -- -- -- 10/19/22 0827 174/91 98.5 ??F (36.9 ??C) Oral (!) 116 23 96 % 1.626 m (5' 4 ) 95.3 kg (210 lb 1.3 oz) 10/19/22 0803 174/91 -- -- (!) 116 23 96 % -- 95.3 kg (210 lb 1.3 oz) Intake/Output Summary (Last 24 hours) at 10/20/2022 0654 Last data filed at 10/20/2022 0627 Gross per 24 hour Intake 4699.15 ml Output 6125 ml Net -1425.85 ml Exam: Mental status: Awake, alert, Follows commands Language: expressive aphasia, comprehension intact Visual powell: gaze to right preference CN 3 - 12: II Pupils 3mm and bilaterally reactive to light. Fundoscopic exam not performed. VIII Hearing is intact bilaterally to finger rub. III/IV/ R gaze palsy and L hemianopsia IX/X Palate elevated symmetrically without phonation abnormalities noted. V Facial sensation symmetric to light touch and intact bilaterally. Corneal reflex not examined. XIHead turning and shoulder shrug are intact. VII No facial palsy noted. XII Tongue is midline with normal movements and no atrophy noted. Motor: Tone/bulk/Abnormal movements: None. Objective strength: Proximal Upper Distal Upper Proximal Lower Distal Lower Right 5/5 5/5 5/5 5/5 Left 03/16 03/16 03/16 03/16 Sensory LT: not tested PP: not tested Vibration: Deferred Proprioception: Deferred Cerebellar Unable to assess due to patient condition Gait Deferred Labs: Reviewed. Acute cerebrovascular accident (CVA) due to embolism of right middle cerebral artery (CMS/HCC) (POA: Yes) Nihss score 9 (POA: Yes) Received intravenous tissue plasminogen activator (tPA) in emergency department (POA: Yes) GERD (gastroesophageal reflux disease) (POA: Yes) Hemianopsia (POA: Yes) Weakness (POA: Yes) Left-sided sensory deficit present (POA: Yes) Gaze palsy (POA: Yes) Migraine (POA: Unknown) Hypertension (POA: Unknown) Imaging Data: CT ANGIO BRAIN NECK STROKE Result Date: 10/19/2022 IMPRESSION: 1. Occlusion of the distal M1 [...] Lonnie Rae MD on 10/19/2022 8:[address] BRAIN - Stroke Result Date: 10/19/2022 IMPRESSION: 1. No acute intracranial hemorrhage. 2. [...] Lonnie Rae MD on 10/19/2022 8:15 AM Assessment Consuelo Darby is a 41 year old female presenting for R sided gaze preference, L hemianopsia, L arm and L leg hemiparesis, and L extinction. CTA showed RMCA M1 occlusion. S/P TNK and MT with TICI 2B recanalization. Admitted to neuroICU for post MT and post TNK monitoring. There are various differentials for R MCA presentation in a 41 year old female. - Antiphospholipid syndrome is being worked up by checking for lupus anticoagulant. Less likely dueto no history of clotting issues or history of miscarriages. Has had 2 uncomplicated pregnancies. - Protein C and S deficiency is being worked up. Less likely due to no history of clotting issues. - Premature atherosclerosis is possible. Pt has many risk factors including BMI of 36, former smoker, hx of HTN, hypertriglyceridemia. Pt's mother's sister and brother (pt's uncle and aunt) has both had strokes. - 5 year history of levonorgestrel-ethinyl estradiol in the context of smoking history (ceased ~8 years ago) and migraines (unsure if with aura) can increase risk of stroke - illicit drugs can increase risk of stroke. Less likely due to negative tox screen on admission Stroke Type: Ischemic Stroke Mechanism (As per TOAST Classification): likely ESUS Plan Neurological # R MCA M1 occlusion s/p MT with TICI 2B recanalization S/P TNK administration # cerebral edema Workup: - MRI brain w/o contrast - protein c, s, lupus anticoagulant panel ordered - Stat CT head for any change in neurological examination Plan: - BP goals of SBP <180 - Neurosurgery consulted for hemicrani watch - Neurological checks q1hr - Aspirin holding - Head of bed > 30?? - Avoid hypoglycemia, hyponatremia, and hyperthermia Hx Migraines - holding home Amytriptiline 50 mg BID and verapamil 120 mg as patient needs to lie flat and SIGNALING PROJECT ENGINEER cannot evaluate. Cardiovascular Pulse Min: 94 Max: 137, BP Min: 120/73 Max: 174/91 Hx Hypertension - Continue Metoprolol 25 mg BID home medication Respiratory No active issues - Aspiration precautions - Elevate head of bed - Maintain oxygen saturation > 92% - Monitor for respiratory distress Renal/Electrolytes Intake/Output Summary (Last 24 hours) at 10/20/2022 0654 Last data filed at 10/20/2022 0627 Gross per 24 hour Intake 4699.15 ml Output 6125 ml Net -1425.85 ml No active issues - Monitor intake and output - Replete electrolytes as needed Infectious Disease Temp (24hrs), Av.1 ??F (36.7 ??C), Min:97.3 ??F (36.3 ??C), Max:98.5 ??F (36.9 ??C) No active issues - Monitor for fevers - Ramirez culture if febrile Gastrointestinal Hx GERD - Protonix 40 mg home medication ordered. - 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: pending SIGNALING PROJECT ENGINEER - Diet: starting tube feeding - Last BM - BM regimen: miralax and senna Endocrine Patient was taking oral contraceptive home medication. Hematology Recent Labs Component Name 10/20/22 0302 WBC 19.5* HGB 11.9* HCT 35.4 PLTCOUNT 292 Likely reactive leukocytosis Likely dilutional anemia from continuous NaCl infusion DVT ppx: SCDs Protein C, S, Lupus anticoagulant ordered given patient age and presentation with MCA occlusion. Musculoskeletal No active issues Disposition - PT/OT pending Feeds/Fluids: NG tube feeding Analgesia: tylenol IV Sedation: n/a Thromboprophylaxis: scd, enoxaparin HOB: flat until post thrombectomy time, then HOB 30 degrees Ulcer Ppx: protonix 40 Glucose: ha1c pending SBT: n/a BR: senna and miralax Indwelling lines: 2 PIVs, art line De-escalation: remain in ICU, neurosurgery consulted for hemnicrani watch Family: updated at bedside Case findings discussed with Dr. Guru MD Cordero Kyle Prado Medical Student, [address] Associated attestation - Dary Garvey MD - 10/20/2022 3:40 PM CDT For Medical Student Practice Only * Jackelyn Flores RN - 10/19/2022 4:55 PM CDT Julio C * Sosa Degroot MD - 10/19/2022 2:20 PM CDT Images from the original note were not included. Vascular Neurology Fellow Plan of Care Note Consuelo Darby is a 41 year old woman presenting to [facility] ED for acute left sensorimotor deficits, left gaze palsy, dysarthria and headache. Early R frontotemporal hypodensity on CTH and R MCA-distalM1 occlusion on CTA. IV TNK was administred within 2 hrs of LKW, she underwent MT with TICI 2b recan alization. Stroke etiology: embolic. No FHx of hypercoagulability or early loss. Will pursue stroke in young w/u given her age. Plan: - SBP goal <140 post-MT - repeat CTH at 24 hrs - MRI brain w/o - TTE w/ bubble and SARAH w/ ILR if TTE is unrevealing - normothermia and euglycemia Temp: [97.3 ??F (36.3 ??C)-98.5 ??F (36.9 ??C)] 97.3 ??F (36.3 ??C) Pulse: [101-130] 109 Resp: [18-25] 23 BP: (120-174)/(66-96) 152/91 Arterial Line BP #1: (111-158)/(60-105) 158/83 Recent Labs Component Name 10/19/22 0824 WBC 10.9* Recent Labs Component Name 10/19/22 0824 10/19/22 0808 06/15/22 0757 12/09/18 0812 07/25/18205503/01/16 0817 SODIUM - - - 138 135* 141 POTASSIUM 4.2 - 5.1* 3.8 3.8 3.6 CHLORIDE - - - 102 103 110* CO2 21* - 23 24 21* 21* BUN 13 - 12 10 7 9 CREATININE 0.84 - 0.74 0.82 0.93 0.60 EGFR >90 >90 >90 >60 >60 >60 GLUCOSE 109 - 104 120* 105 83 CALCIUM 8.9 - 8.9 9.4 9.2 8.1* Sosa Degroot MD, PhD Vascular and Interventional Neurology Fellow * Sima Gardner, SIGNALING PROJECT ENGINEER - 10/19/2022 1:20 PM CDT [facility] Department of Physical Medicine & Rehabilitation Progress Note Patient: Consuelo Darby Med Record Number: [id number] Date of : 1980 Age: [age] year old 10/19/22 1320 Missed Visit Missed Visit Other (Comment) SIGNALING PROJECT ENGINEER orders received and acknowledged. Per consultation with RN pt not cleared to sit up to participate in swallow evaluation until later this date. SIGNALING PROJECT ENGINEER will reattempt as appropriate. Speech Language Pathologist * Bulmaro Ochoa RN - 10/19/2022 1:07 PM CDT Stroke Psychosocial Assessment Case Management Screen completed, welcome letter given Met with: CM talked to patient's Hi Darby via phone. Lives with: Spouse Diagnosis: Diagnoses of Weakness, Gaze palsy, Hemianopsia, and Left-sided sensory deficit present were pertinent to this visit. Contacts/Support: Extended Emergency Contact Information Primary Emergency Contact: Hi Darby Address: [address] [place] [address] [place] [address] [facility] Relation: Spouse Secondary Emergency Contact: Sandra Disla [facility] Mobile Relation: Mother Insurance: Payer/Plan Subscriber Name Rel Member # Group # [id number]* CONSUELO DARBY [id number] [address] [address] Prior level of functioning: Independent with ADL's Cognition: Alert Mental Health History: None Employment/income status: Unknown Alcohol/Drug/Tobacco: None Prior Stroke: None Co-morbidities: None Medication Needs: Yes Established Resources: Community Resource Contact Information: SW Referral: Yes If patient requires HHC at discharge, he/she requests: Anticipated level of care provider: None Equipment at Home: None Recommended/Needed DME: Other - Comment (Pending PT, OT evaluation) PCP: Yvan Booth MD Transportation: Family Coping Strengths: Mother and are supportive. Short Term Goals: Environmental Marketer Goals: Family/Support included in planning: Yes Patient and Family Questions/Concerns: None at present. Discharge Plan: Anticipated level of care at discharge: Home, Acute Rehab Facility Anticipated Discharge Date: 10/26/22 Bulmaro Ochoa RN BSN manager in home [phone] * Yoon Cuadra PharmD - 10/19/2022 12:29 PM CDT [facility] Pharmacy Medication History Note The current home/prior to admission (ELECTRICAL AND INSTRUMENTATION MANAGER) medication list has been reviewed by a pharmacist. Outpatient medications were clarified with patient, medication bottles, and pharmacy records. Please note all medications may NOT have been clarified pending available information at the time. Current Updated Home Medications: Medications Prior to Admission Medication Sig Action Taken amitriptyline (Elavil) 50 MG tablet Take 2 (two) tablets by mouth at bedtime added Cetirizine HCl (ZYRTEC PO) Take 10 mg by mouth once daily added levonorgestrel-ethinyl estradiol (LESSINA-28) 0.1-20 MG-MCG tablet TAKE 1 TABLET BY MOUTH EVERY DAYFOR CONTROL Reasons: Control Treatment added metoprolol tartrate IR (Lopressor) 25 MG tablet Take 1 (one) tablet by mouth 2 times daily added omeprazole (PriLOSEC) 20 MG capsule Take 20 mg by mouth daily before breakfast added verapamil SR 24hr (Verelan) 120 MG capsule Take 1 (one) capsule by mouth at bedtime added Vitamin D3, cholecalciferol, 50 MCG (2000 UT) tablet Take 2,000 Units by mouth once daily added Additional recommendations/concerns Per the dispense report, the patient has tried rizatriptan 5 mg and 10 mg for migraines - last filled June 2022. She was able to self-report her home medications and mentioned using amitriptyline and verapamil only for migraines. Please note that this only serves as an updated medication list and all medical teams should continue to manage the patient as deemed most appropriate. If any questions about the home medication listarise please do not hesitate to contact the [facility] pharmacy dept ([phone]). Thank you. Assessment Completed by: Yoon Cuadra PharmD 10/19/2022 12:26 PM * Yeimy Booker RN - 10/19/2022 10:34 AM CDT Interventional Radiology Nursing - End Procedure Note Sedation: Anesthesia (MAC/General) Procedure start time: 0853 hours Procedure end time: 1015 hours Additional drugs: Verapamil 2.5 mg, Nitro 300 mcg Contrast: 60 mL of Isovue-300 Fluoroscopy time: 14.6 min documented in this encounter H&P Notes * Richi Anderson MD - 10/23/2022 8:46 AM CDT Transesophageal Echocardiogram (SARAH) Pre-Procedure Note HISTORY: Consuelo Darby is a 41 year old woman with: 1. BMI 36 2. R M1 stroke A. S/p tenecteplase and thrombectomy 10/19/22 B. Complicated by cerebral edema and midline shift s/p hemicraniectomy 10/20/22 3. Migraine without aura 4. Oral contraceptive use She presented with the above stroke and presents for SARAH with possible implantable loop recorder. PAST MEDICAL HISTORY: She has a past medical history of Abdominal pain, right upper quadrant, GERD (gastroesophageal reflux disease), and History of hypertension. PAST SURGICAL HISTORY: Her has a past surgical history that includes section; colonoscopy;cholecystectomy, laparoscopic (02/22/2012); cholecystectomy; section (03/01/2016); colonoscopy (N/A, 08/25/2021); and colonoscopy with polypectomy (N/A, 08/25/2021). 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 ??? amitriptyline (Elavil) 50 MG tablet ??? Cetirizine HCl (ZYRTEC PO) ??? levonorgestrel-ethinyl estradiol (LESSINA-28) 0.1-20 MG-MCG tablet ??? metoprolol tartrate IR (Lopressor) 25 MG tablet ??? omeprazole (PriLOSEC) 20 MG capsule ??? verapamil SR 24hr (Verelan) 120 MG capsule ??? Vitamin D3, cholecalciferol, 50 MCG (1999) tablet CURRENT MEDICATIONS: ??? *Hold/Avoid Medication Other DIRECTED ??? *Hold/Avoid Medication Other 0800 and 1999 ??? 0.9% NaCl 3 mL Intracatheter q8h ??? 0.9% NaCl 3 mL Intracatheter q8h ??? artificial tears Each Eye q8h ??? aspirin 81 mg Enteral Tube QDAY ??? chlorhexidine 15 mL Mouth/Throat BID ??? enoxaparin 40 mg Subcutaneous QDAY ??? guaiFENesin 10 mL Enteral Tube q12h ??? lansoprazole 30 mg Enteral Tube QDAY BEFORE BREAKFAST ??? loratadine 10 mg Enteral Tube QDAY ??? metoprolol tartrate IR 25 mg Enteral Tube q12h ??? polyethylene glycol 3350 17 g Enteral Tube QDAY ??? potassium chloride 20 mEq Enteral Tube Once ??? potassium chloride 40 mEq Enteral Tube Once ??? senna-docusate 1 tablet Enteral Tube QDAY ??? tamsulosin 0.4 mg Oral QDAY ??? verapamil 40 mg Enteral Tube q8h ??? Vitamin D3 (cholecalciferol) 2,000 Units Enteral Tube QDAY dexmedeTOMIDine, 0-1.5 mcg/kg/hr, Last Rate: Stopped (10/22/22 1255) REVIEW OF SYSTEMS: A complete 12-point review of systems was performed and negative except as detailed in HPI PHYSICAL EXAM: General: Acutely ill young woman intubated, restrained Eyes: Closed ENTM: ETT in place Neck: Supple, full range of motion Lungs: Clear to auscultation bilaterally Heart: Rhythm regular, S1 normal, S2 physiologically split, no murmurs or gallops Abdomen: Soft, non-tender, non-distended, normal bowel sounds Extremities: No cyanosis, clubbing, or edema Skin: Warm, dry, well perfused Neuro: Gives thumbs up, intubated ASSESSMENT & PLAN: Plan: - Proceed with SARAH with possible implantable loop recorder Cardiology High Risk Variables Fluid & Electrolyte Disorders - Acidosis and Mixed Disorder of Acid Base Balance, Obesity - Morbid (severe) obesity due to excess calories , Blood Loss Anemia, and Respiratory Failure - Acute respiratory failure with hypoxia and Acute respiratory failure with hypercapnia Were these present on admission? No * Jim Walter MD - 10/19/2022 12:39 PM CDT Images from the original note were not included. NEUROCRITICAL CARE SERVICE ATTESTATION I have discussed the case with the Resident. I have personally performed a history, physical exam, and my own medical decision making. Upon my evaluation, this patient had a high probability of imminent or life-threatening deterioration due to middle cerebral artery occlusion on the right with cortical signs and a worsening exam, which required my direct attention, intervention, and personal management. I have personally provided 33 minutes of critical care time exclusive of time spent on separately billable procedures. Time includes review of laboratory data, radiology results, discussion with consultants, and monitoring for potential decompensation. Interventions were performed as documented in the resident's note. I have reviewed the note and agree with the findings and plan with additions and modifications as listed below. Date of Service: 10/19/2022 Acute cerebrovascular accident (CVA) due to embolism of right middle cerebral artery (CMS/HCC) (POA: Yes) Nihss score 9 (POA: Yes) Received intravenous tissue plasminogen activator (tPA) in emergency department (POA: Yes) Hemianopsia (POA: Yes) Weakness (POA: Yes) Left-sided sensory deficit present (POA: Yes) Gaze palsy (POA: Yes) I evaluated this patient in the Emergency Department in the context of an Acute Stroke activation. She is within the systemic thrombolysis window and there are no contraindications. There is occlusion of the right middle cerebral artery and her symptoms are worsening. At the time of my examination the NIHSS is 9 and had previously documented as 6 and prior to that at 4. The ASPECTS is favorable and the likelihood of revascularization with TNK alone is low. I discussed the risks and benefits of thrombectomy with the patient as well as her Mother and her . I do not think the patient has capacity to consent given neglect and anosognosia but she was an active participant in the conversation. With all their questions answered we will proceed to IR. Jim Walter MD * Jaime Drew MD - 10/19/2022 8:38 AM CDT Neuro Intervention H & P Patient Name: Consuelo Darby Age: [age] year old Reason for Angiogram: mechanical Theormbectomy History: The patient is a 41 year old female who is here to undergo a cerebral angiogram. 41 with R MCA M1 occlusion, nihss 6, LKW 6:30am. Decision for MT: 8:30 The angiogram is going to be performed by Dr. Walter Physical Examination: Mental Status: awake, follows commands on right side CN: face symmetric Motor: left side weakness Sensory: neglect left side Gait was not assessed due to patient factors Labs Cr p INR p Plt p Sedation Risk Assessment Any oral intake after midnight? No Time of last oral intake: uknown Previous adverse reaction to conscious sedation or other types of anesthesia? No Aspiration risk? No History of substance abuse? No Possibility of ? No History of stridor, snoring, disturbed sleep or obstructive sleep apnea? No History of oropharyngeal surgery? No History of chronic analgesic drugs? No History of gastric outlet obstruction, intestinal obstruction or hiatal hernia? No Pre-procedure mRS (modified maryann score)- 4 ASA physical status classification: ASA 3 - Patient with moderate systemic disease with functional limitations Sedation Plan: General The risks and benefits for the procedure were explained in detail to patient and her . The risk of contrast reaction, damage to the femoral artery, and stroke were specifically mentioned. Written informed consent was obtained. Assessment/Plan 41 year old with GERD, tobacco, p/w left sided neglect both sensory and visual, LWK 6:30, s/p TNK. CTA 1 M1 occlusion. Will take to IR for a mechanical thrombectomy. Discussed with Vascular and Neuro-intervention attending Dr. Jose Angel Drew MD 10/19/2022 8:39 AM * Stephanie Hester MD - 10/19/2022 8:03 AM CDT [facility] Stroke History and Physical Consuelo Darby Age: [age] year old Date of : 1980 Date of Admission: 10/19/2022 Hospital Day: 0 Subjective COVID-19 Screening questionnaire for Code Stroke 1. Do you have a fever, cough, shortness of breath or other respiratory complaints? a. Yes b. No 2. Do you have nausea, vomiting, diarrhea or any other GI symptoms? a. Yes b. No 3. Have you recently traveled? (interstate or international) a. Yes b. No 4. Have you been around anyone who has been ill with similar symptoms? a. Yes b. No 5. Have you been in close contact with someone suspected or known to be positive for COVID-19? a. Yes b. No In addition to this list: Is this a young patient with few comorbidities that presents as an atypical candidate for acute stroke? N/A Patient is a 41 year old white female presents with L sided hemianopsia, L sided gaze palsy, and L sided sensory loss. CTH/CTA suggestive of M1, M2. Date last known well: 10/19/22 Time last known well: 6:30am Blood Glucose: 105 Blood Pressure: 174/91 Timeline EMS called N/A tPA started at [facility] N/A Code Stroke Paged 7:26am Arrival at [facility] ED 7:52am NIHSS Completed 7:56am [facility] 8:02am TNK orders placed 8:21am TNK begun 8:25am History of Present Illness Consuelo Darby is a 41yo M who developed acute onset L sided weakness, L-sided sensory deficits, and dysarthria. L sided weakness resolved in route and dysarthria improved in route. On arrival patient noted to Amy Johnson hemainopsia, mild dysarthria, and extinction. NIHSS: 7. Patient was givenTNK and code IVR was activated. TICI2b revascularization of the R MCA M1 occlusion. Medical history significant for hemiplegic migraine, GERD, GENESIS Past Medical History: Diagnosis Date ??? Abdominal [...] COLONOSCOPY REMOVAL OR ABLATION TUMOR/POLYP/LESION (ANY METHOD) (Not in a hospital admission) Allergy Allergies Allergen Reactions ??? 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 Cancer Maternal Grandfather Lung ??? Diabetes Maternal Grandfather ??? Diabetes Maternal Grandmother ??? Hypertension Mother ??? Thyroid Disease Mother Social History Social History Socioeconomic History ??? Marital status: Occupational History ??? 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 Smoking status: Former Packs/day: 0.50 Types: Cigarettes Quit date: 2014 Years since quittin.6 ??? Smokeless tobacco: Never Vaping Use ??? Vaping Use: Never used Substance and Sexual Activity ??? Alcohol use: No Alcohol/week: 0.0 - 1.7 standard drinks of alcohol Comment: Occasional ??? Drug use: No ??? Sexual activity: Yes Partners: Male control/protection: Pill Other Topics Concern ??? Special Diet No Review of Systems General - Denies changes in weight or appetite ENT - Denies dental or swallowing difficulties Cardiac - Denies chest pain or palpitations Pulmonary - Denies shortness of breath, cough, or sputum production Gastrointestinal - Denies abdominal pain or changes in bowel habits Genitourinary - Denies changes in bladder habits Endocrine - Denies heat or cold intolerance Musculoskeletal - Denies myalgias or arthralgias Hematological - Denies history of malignancy or blood abnormalities Neurological - See HPI Psychiatric - Denies depression or mood difficulties Objective Patient Vitals for the past 8 hrs: BP Pulse Resp SpO2 Weight 10/19/22 0803 174/91 (!) 116 23 96 % 95.3 kg (210 lb 1.3 oz) Exam: Cortical Function Mental Status Awake, alert, follows commands Orientation Person, place, time, and situation Language Fluency intact, comprehension intact, repetition intact Visual Powell Intact bilaterally to confrontation Neglect No visual neglect noted, no tactile neglect noted Cranial Nerves II Pupils 3 mm and bilaterally reactive to light. Fundoscopic exam not performed. VIII Hearing is intact bilaterally to finger rub. III/IV/ L gaze palsy, L hemianopsia IX/X Palate elevated symmetrically without phonation abnormalities noted. V Facial sensation symmetric to light touch and intact bilaterally. Corneal reflex not examined. XIHead turning and shoulder shrug are intact. VII No facial palsy noted. XII Tongue is midline with normal movements and no atrophy noted. Motor Function Movement No abnormalities noted Bulk No abnormalities noted Tone No abnormalities noted Proximal Upper Distal Upper Proximal Lower Distal Lower Right 5/5 5/5 5/5 5/5 Left 5/5 5/5 5/5 5/5 Muscle Stretch Reflexes BI TRI BR PAT ACH TOES Right 2 2 2 2 2 Down Left 2 2 2 2 2 Down Sensory Light Touch Absent in the LUE, LLE Noxious Stimuli Absent in the LUE, LLE Temperature Not tested Pallesthesia Not tested Cerebellar FNF DALE HKS Right Intact Deferred Intact Left Intact Deferred Intact Gait Deferred ECG: sinus tachy Ischemic Stroke Documentation Comorbidities GERD, hemiplegic migraine, GENESIS Cardiovascular/Cerebrovascular Comorbidities Chart Hx of HTN, but patient does not endorse NIHSS Stroke Scale: Interval: Baseline Time: 7:54am Person Administering Scale: Stephanie Hester MD 1a Level of consciousness 0 = Alert; keenly responsive. 1b LOC questions 0 = Answers both questions correctly. 1c LOC commands 0 = Performs both tasks correctly. 2 Best gaze 1 = Partial gaze palsy; gaze is abnormal in one or both eyes, but forced deviation or total gaze paresis is not present. 3 Visual 1 = Partial hemianopsia (or quadrantanopsia). 4 Facial Palsy 0 = Symmetrical movements. 5a Motor Left Arm 0 = No drift; limb holds 90 (or 45) degrees for full 10 seconds. 5b Motor Right Arm 0 = No drift; limb holds 90 (or 45) degrees for full 10 seconds. 6a Motor Left Leg 0 = No drift; leg holds 30 degree position for full 5 seconds. 6b Motor Right Leg 0 = No drift; leg holds 30 degree position for full 5 seconds. 7 Limb Ataxia 0 = Absent. 8 Sensory 2 = Severe or total sensory loss; patient is not aware of being touched in the face, arm,and leg. 9 Best Language 0 = No aphasia; normal. 10 Dysarthria 1 = [id number]-hl-[id number] dysarthria; patient slurs at least some words and, at worst, canbe understood with some difficulty. 11 Extinction/Inattention 2 = Profound sonya-inattention or extinction to more than one modality; does not recognize own hand or orients to only one side of space. Total - 7 TNK - INCLUSION criteria for treatment 0-3 hours from last known well: 1. Age greater than or equal to 18 years old? yes 2. Clinical presentation consistent with acute ischemic stroke? yes 3. Head CT excludes ICH as primary cause of stroke symptoms? yes TNK - EXCLUSION criteria for treatment 0-3 hours from last known well: 1. Current intracranial hemorrhage or subarachnoid hemorrhage? no 2. Active internal bleeding? no 3. Recent (<3 months) intracranial/intra-spinal surgery or serious head trauma? no 4. Presence of intracranial conditions that may increase the risk of bleeding (some neoplasms, AVMs, or aneurysms)? no 5. Bleeding diathesis? no 6. Current severe uncontrolled hypertension? no TNK - Additional EXCLUSION criteria for treatment 3-4.5 hours from last known well: 1. Age greater than 80 years old? no 2. NIHSS greater than 25? no 3. History of stroke and diabetes mellitus? no 4. Oral anticoagulant use regardless of INR? no The patient was informed that tenecteplase would be administered to treat their potentially disabling acute stroke symptoms. The risks, benefits, and alternatives were explained. Family was included in this discussion if immediately available. No objection to utilizing the medication was indicated. Tenecteplase Administered? Yes, Verbal Informed Consent Obtained from: Patient: Discussions to obtain informed consent for tenecteplase included: risk of bleeding, including in the brain, that can result in ; benefit of decreased functional disability; as well as alternatives, including no treatment or conservative treatment with antiplatelet therapy. Door to needle time >30 minutes: Yes Eligibility: Care-team unable to determine eligibility c/f hemiplegic migraine vs stroke Large Vessel Occlusion Suspected? Yes, Thrombectomy candidate?: Yes - IVR Activated Large Vessel Occlusion Suspected?: Yes IF YES - Thrombectomy Candidate?: Yes IF YES - IVR Activated: Yes Mechanical Thrombectomy - INCLUSION criteria: 1. Age greater than or equal to 18 years old? yes 2. Clinical presentation consistent with acute ischemic stroke? yes 3. Head CT excludes ICH as primary cause of stroke symptoms? yes Mechanical Thrombectomy - EXCLUSION criteria: 1. Evidence of proximal large vessel intracranial occlusion? no 2. Completed large infarction on neuroimaging? no 3. Baseline disability with modified [place] score greater than or equal to 3? no 4. Patient and/or family refusal of treatment? no 5. Mild/non-disabling neurological deficits? no * No active hospital problems. * Assessment Consuelo Darby is a 41 year old female presenting for left sided sensory loss, left gaze palsy, Lhemianopsia, and left extinction. Given TNK and taken for mechanical thrombectomy. Will admit to neuro ICU for post-thrombectomy monitoring. Stroke Type: Ischemic Stroke Mechanism: Cardioembolic vs Large Artery vs Cryptogenic Plan TIA/Stroke Workup; active - Patient will be admitted to the stroke service. - s/p TICI2b revascularization, TNK - CTH, CTA H/N, MRI Brain, MRI H/N - TTE and Telemetry; if TTE negative, consider SARAH - HbA1C, Lipid Panel, Cardiac Enzymes - UDS: (-) - NPO until passes swallow - q1h vitals and neurological checks - protein c, s, lupus anticoagulant panel Blood Pressure Goals: SBP<140, map>70 If tPA given, - repeat CT Head or MR Head in 24 hours to evaluate for bleed - if negative at 24 hours, okay to resume aspirin Core Measures TNK administration: yes Anti-thrombotic: holding in setting of TNK Statin: atorvastatin 80mg DVT prophylaxis: SCD Swallow Evaluation: pending PT/OT Evaluation: pending Smoking cessation; 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 - Avoid hypoglycemia, hyponatremia, and hyperthermia - protein c, s, lupus anticoagulant panel Core Measures TNK administration: yes Anti-thrombotic: holding in setting of TNK Statin: atorvastatin 80mg DVT prophylaxis: SCD Swallow Evaluation: pending PT/OT Evaluation: pending Smoking cessation; will assistant corporation counsel: N/A Cardiovascular No acute issues - 12-lead EKG - Cardiac markers x 3 - Transthoracic ECHO ordered - Blood pressure goal: SBP<140, map>70 - PRN hydralazine IV and labetalol IV for SBP > 140 - Hemodynamic monitoring HTN: - home metop and verapamil - PRN hydralazine, labetalol Respiratory No acute issues - Aspiration precautions - Elevate head of bed - Maintain oxygen saturation > 92% - Monitor for respiratory distress Gastrointestinal No acute issues - 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 Renal/Electrolytes No acute issues - Monitor intake and output - Replete electrolytes as needed Hematology No acute issues - Avoid unnecessary IM injections and arterial punctures during the first 24 hours post-tPA - Evaluate puncture sites for bleeding or hematoma - Evaluate emesis, secretions, stool, and urine for blood - No nasogastric tube insertions during the first 24 hours post-tPA - Transfuse for hemoglobin < 7.0 g/dL Endocrine Vit D deficiency - Vit D Infectious Disease No acute issues - Monitor for fevers - Ramirez culture if febrile Musculoskeletal No acute issues Disposition - PT/OT pending Individual Modifiable Risk Factors Hypertension: no Hyperlipidemia: no Diabetes: no Atrial Fibrillation: no Tobacco: no Additional Hospital Problems: GENESIS: cont home amitriptyline HTN: home metoprolol 25mg, verapamil 120mg Vit D Deficiency: Vit D Stephanie Hester MD Neurology Resident Associated attestation - Good Antunez MD - 10/20/2022 3:58 PM CDT Images from the original note were not included. I have seen and examined the patient with the resident and I agree with the findings and plan of care as documented by the resident. Date of Service: 10/20/2022 Good Antunez MD Multidisciplinary rounds were held at 9am and the patient's care and recovery plan were reviewed and developed with the assembled team. Conuselo Darby is a 41 year old F who presents with RMCA syndrome sp TNK and MT. Large infarctionon repeat CT, but mild midline shift. Lid apraxia and following briskly on right. Slight LLE movement. [facility] possible - repeat CT at 0400 on 10/21. Close neurological monitoring. ESUS marroquin including hypercoag and rheum panel. Hx of OCP use. Problem List Acute cerebrovascular accident (CVA) due to embolism of right middle cerebral artery (CMS/HCC) (POA: Yes) Nihss score 9 (POA: Yes) Received intravenous tissue plasminogen activator (tPA) in emergency department (POA: Yes) GERD (gastroesophageal reflux disease) (POA: Yes) Hemianopsia (POA: Yes) Weakness (POA: Yes) Left-sided sensory deficit present (POA: Yes) Gaze palsy (POA: Yes) Migraine (POA: Unknown) Hypertension (POA: Unknown) See Resident note for the remaining problem specific plan. 1 MEDICATIONS FOR CURRENT ENCOUNTER: SCHEDULED MEDICATIONS: *Hold/Avoid Medication, Other, 0800 and 2000 *Hold/Avoid Medication, Other, DIRECTED 0.9% NaCl injection 3 mL, Intracatheter, q8h 0.9% NaCl injection 3 mL, Intracatheter, q8h amitriptyline (Elavil) tablet 100 mg, Oral, AT BEDTIME iopamidol (Isovue 370) 76 % contrast, Intravenous, Contrast - Once loratadine (Claritin) tablet 10 mg, Oral, QDAY metoprolol tartrate IR (Lopressor) tablet 25 mg, Oral, BID pantoprazole EC (Protonix) tablet 40 mg, Oral, QDAY verapamil CR (Isoptin-SR) tablet 120 mg, Oral, AT BEDTIME vitamin D3 (Cholecalciferol) 25 MCG (1000 UNITS) tablet 2,000 Units, Oral, QDAY [COMPLETED] 0.9% NaCl IV bolus, Intravenous, Once [COMPLETED] acetaminophen (Ofirmev) injection 1,000 mg, Intravenous, Once [COMPLETED] acetaminophen (Ofirmev) injection 1,000 mg, Intravenous, Once CONTINUOUS MEDICATIONS: 0.9% NaCl infusion, Intravenous, Continuous niCARdipine (Cardene) 20 mg in 0.9% NaCl 200 mL infusion, Intravenous, Continuous PRN MEDICATIONS: Or 0.9% NaCl injection 1-10 mL, Intracatheter, PRN 0.9% NaCl injection 3 mL, Intracatheter, PRN hydrALAZINE (Apresoline) injection 10 mg, Intravenous, q20 min PRN labetalol (Normodyne; Trandate) injection 10 mg, Intravenous, q15 min PRN Patient Vitals for the past 24 hrs: Temp Pulse Resp BP 10/20/22 0600 -- (!) 121 22 127/66 10/20/22 0500 -- (!) 123 18 140/65 10/20/22 0400 97.6 ??F (36.4 ??C) (!) 130 24 -- 10/20/22 0300 -- (!) 125 25 -- 10/20/22 0200 98.3 ??F (36.8 ??C) (!) 121 25 133/58 10/20/22 0100 -- (!) 123 14 -- 10/20/22 0045 -- -- -- 155/84 10/20/22 0000 98.2 ??F (36.8 ??C) (!) 112 20 137/61 10/19/22 2300 -- 107 23 140/78 10/19/22 2200 98.4 ??F (36.9 ??C) (!) 120 31 140/78 10/19/22 2100 -- 108 20 136/82 10/19/222046 -- -- -- 144/79 10/19/221999 97.7 ??F (36.5 ??C) (!) 137 14 132/71 10/19/22 1950 -- (!) 116 17 -- 10/19/221944 -- (!) 125 16 -- 10/19/221929 -- (!) 113 25 -- 10/19/221914 -- (!) 116 25 -- 10/19/221899 -- (!) 131 14 137/97 10/19/221844 -- (!) 110 (!) 0 -- 10/19/221829 -- (!) 113 17 -- 10/19/22 181 -- (!) 121 26 -- 10/19/22 1800 -- (!) 134 30 156/83 10/19/22 1745 -- (!) 118 28 -- 10/19/22 1730 -- (!) 114 26 -- 10/19/22 1715 -- (!) 120 26 -- 10/19/22 1700 -- (!) 113 25 135/78 10/19/22 1645 -- (!) 116 26 -- 10/19/22 1630 -- (!) 112 26 -- 10/19/22 1615 -- (!) 112 27 126/84 10/19/22 1600 98.4 ??F (36.9 ??C) (!) 121 29 146/80 10/19/22 1545 -- 106 26 130/77 10/19/22 1530 -- 105 28 123/80 10/19/22 1515 -- 100 25 135/85 10/19/22 1500 -- 99 23 132/82 10/19/22 1445 -- 96 27 135/86 10/19/22 1433 -- 94 22 151/89 10/19/22 1430 -- 97 27 137/85 10/19/22 1415 -- (!) 110 23 141/79 10/19/22 1414 -- 109 -- 152/91 10/19/22 1400 -- (!) 112 23 140/78 10/19/22 1345 -- (!) 120 24 138/77 10/19/22 1330 -- (!) 128 21 135/81 10/19/22 1315 -- (!) 114 25 132/82 10/19/22 1300 -- (!) 130 20 -- 10/19/22 1245 -- 101 23 120/73 10/19/22 1230 -- 104 24 125/74 10/19/22 1215 -- (!) 111 21 123/72 10/19/22 1200 -- (!) 117 25 135/78 10/19/22 1145 -- (!) 112 20 123/66 10/19/22 1130 -- (!) 112 22 -- 10/19/22 1115 97.3 ??F (36.3 ??C) (!) 112 18 -- 10/19/22 1100 -- (!) 110 23 -- Recent Labs Component Name 10/20/2230110/19/2282306/15/22 0757 NA 138 139 138 CL 108* 108* 107 CO2 21* 21* 23 BUN 6* 13 12 CREATININE 0.50* 0.84 0.74 CALCIUM 8.2* 8.9 8.9 Recent Labs Component Name 10/20/2230110/19/2282306/15/22 0757 WBC 19.5* 10.9* 9.6 RBC 3.83 4.73 4.60 HGB 11.9* 14.4 14.1 HCT 35.4 42.6 42.5 Recent Labs Component Name 10/20/2230106/15/22 0757 CHOL 173 204* TRIG 201* 251* HDL 42 37* LDLCALC 91 117* No results for input(s): HGBA1C, A1C, [id number], EAG in the last 44260 hours. Recent Labs Component Name 10/20/2230110/19/2282306/15/22 0757 PLTCOUNT [id number] documented in this encounter Procedure Notes * Isacc Lizama MD - 11/05/2022 12:54 PM CDTProcedure(s): CO CATH BLADDER SIMPLE TEMP Pre-Procedure Diagnose(s): Urinary retention Post-Procedure Diagnose(s): Urinary retention Puentes Placement Procedure Note Indication: 42F admitted for stroke with urinary retention requiring indwelling puentes catheter placement. Patient has fever and had puentes removed for culture from fresh catheter, but nursing unable to replace. called for assistance. Procedure: The patient was positioned in the supine position. Betadine soaked swabs were then used to prepare the area in a sterile fashion, running the swabs over the meatus 3 separate times. A 14 Russian silicone puentes catheter was covered with sterile lubricant and was then introduced into the meatus and quickly advanced into the bladder. Position was verified by the free flow of clear urine from the bladder. The catheter balloon was then filled with 10 mL of saline solution. The urine collection system was secured in place. Complications: None Puentes Difficulty: Level 1 *The Puentes Difficulty Chart is a qualitative method for grading the difficulty in placing a puentes catheter. Please reference table below. Level Puentes [place] Sample Patient 1 Teaching Puentes (i.e. Medical student, Tech, RN) - Female without urologic history 2 Registered Nurse, Any Physician, Any Advanced Practitioner - Male >65 yo 3 Charge or Experienced Nurse, Urology AIRPORT PLANNER, Urologist - Multiple failed attempts 4 Urologist - Required Cystoscopy, simple 5 Urologist - Required Cystoscopy, complex Isacc Lizama MD Urology Resident 11/05/2022 12:56 PM * Sal Causey MD - 10/19/2022 1:12 PM CDTProcedure(s): ARTERIAL LINE ARTERIAL LINE PLACEMENT PROCEDURE NOTE Performed By: Sal Causey MD Indication: Strict BP monitoring Date: 10/19/2022 Time: 12:59 pm Site: L Radial artery Anesthesia: n/a Consent: Risks of hemorrhage, infection and adverse drug reaction were discussed Informed consent was obtained for the procedure, including sedation. Procedure Details: A time out was performed. My hands were washed immediately prior to the procedure. After an Hi test was performed to ensure adequate perfusion, the L wrist was prepped using chlorhexidine scrub and draped in sterile fashion using a three quarter sheet drape and sterile towels. The radial pulse was identified and the wrist was positioned in the usual fashion. No anesthetics were used during this procedure. US was used to identify radial artery. Using the Arrow Radial Arterial Line Kit, a needle was inserted into the radial artery. Catheter location was confirmed using US target sign and threading technique. Arterial blood was seen to pulsate in the flash chamber. The internal guidewire was advanced easily into the radial artery. The catheter was then advanced over the wire and the needle and wire were withdrawn. A sterile opsite was placed over the catheter at the insertion site. The patient tolerated the procedure without any hemodynamic compromise. At the time of procedure completion, the catheter was connected to the front desk monitor and calibrated. Appropriate waveform and blood pressure tracing was observed. Estimated blood loss is 10cc. Sal Causey MD PGY4 Neurology Resident Associated attestation - Dary Garvey MD - 10/19/2022 4:14 PM CDT I was present during entire procedure documented in this encounter Consult Notes * Jean Perry MD - 11/15/2022 12:43 PM CDT Dermatology Inpatient Consult Note Name: Consuelo Darby : 1980 Sex: female Date of Admission: 10/19/2022 Dermatology Attending: Neftali Reason for consultation: Rash HPI: Consuelo Darby is a 42 year old female with a PMH of migraine, GERD, HTN who presented with rightMCA stroke on 10/19/22. Revascularization performed, developed cerebral edema and had decompressive hemicraniectomy on 10/20 During stroke workup, vegetation found on aortic side of left coronary cusp.ID was consulted to rule out infective endocarditis, cultures negative to date, empiric antibioticswere started on 10/25 including vancomycin, ceftriaxone. On 11/05, ceftriaxone was stopped and switched to cefepime, and doxycycline was started. 11/10, a rash was noted to have started on the neck. Since it has spread to the extremities, and some of the trunk. Per family, the rash is pruritic. Family also notes that after first administration of vancomycin she developed a fever and a rash that resolved with benadryl. Has not been an issue since co- administering benadryl with vanc. Rash has dramatically improved with intensive skin care. Patient has remained afebrile. Eruption is no longer pruritic- patient only complains of itchiness at site of EKG lead adhesives. OTHER HISTORY HISTORIES Past Medical History: Diagnosis Date ??? Abdominal [...] file Occupational History ??? 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 Smoking status: Former Packs/day: 0.50 Types: Cigarettes Quit date: 2015 Years since quittin.6 ??? Smokeless tobacco: Never Vaping Use ??? [...] No Stress: No Stress Concern Present (10/19/2022) [employer] [place] [employer] - Occupational Stress Questionnaire ??? Feeling of Stress : Only a little Housing Stability: Low Risk (10/19/2022) Housing Stability Vital Sign ??? Unable to Pay for Housing in the Last Year: No ??? Number of Places Lived in the Last Year: 1 ??? Unstable Housing in the Last Year: No ALLERGIES: Allergies Allergen Reactions ??? 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 Current Outpatient Medications on File Prior to Encounter Medication Sig Dispense Refill ??? amitriptyline (Elavil) 50 MG tablet Take 2 (two) tablets by mouth at bedtime ??? Cetirizine HCl (ZYRTEC PO) Take 10 mg by mouth once daily ??? levonorgestrel-ethinyl estradiol (LESSINA-28) 0.1-20 MG-MCG tablet TAKE 1 TABLET BY MOUTH EVERYDAY FOR CONTROL Reasons: Control Treatment 84 tablet 4 ??? metoprolol tartrate IR (Lopressor) 25 MG tablet Take 1 (one) tablet by mouth 2 times daily ??? omeprazole (PriLOSEC) 20 MG capsule Take 20 mg by mouth daily before breakfast ??? verapamil SR 24hr (Verelan) 120 MG capsule Take 1 (one) capsule by mouth at bedtime ??? Vitamin D3, cholecalciferol, 50 MCG (2000 UT) tablet Take 2,000 Units by mouth once daily PHYSICAL EXAM: Temp (24hrs), Av.9 ??F (36.6 ??C), Min:97.5 ??F (36.4 ??C), Max:98.2 ??F (36.8 ??C) Vitals: 11/14/22 1946 11/14/22 2331 11/15/22 0349 11/15/22 0901 BP: 120/66 107/63 110/60 107/52 Pulse: 101 91 89 88 Resp: 16 Temp: 97.5 ??F (36.4 ??C) 98.2 ??F (36.8 ??C) 97.8 ??F (36.6 ??C) 98 ??F (36.7 ??C) SpO2: 100% 98% 96% 97% Weight: Height: Body mass index is 36.05 kg/m??. Physical Examination General: no acute distress Skin: full body skin exam was conducted and was normal with the following exceptions: ?? Morbilliform eruption noted on neck; chest, bilateral upper arms, thighs resolved ?? No LAD appreciated on exam ?? No facial edema or erythema appreciated See pictures in media tab DATA REVIEW MEDICATIONS FOR CURRENT ENCOUNTER: 0.9% NaCl injection 10-40 mL, Intracatheter, q8h 0.9% NaCl injection 3 mL, Intracatheter, q8h doxycycline monohydrate capsule 100 mg, Enteral Tube, q12h fentaNYL (PF) (Sublimaze) injection 25 mcg, Intravenous, Once guaiFENesin (Robitussin) solution 10 mL, Enteral Tube, q12h lansoprazole (Prevacid) suspension 30 mg, Enteral Tube, QDAY BEFORE BREAKFAST loratadine (Claritin) tablet 10 mg, Enteral Tube, QDAY meropenem (Merrem) 2,000 mg in 0.9% NaCl IV 140 mL IVPB, Intravenous, q8h metoprolol tartrate IR (Lopressor) tablet 25 mg, Enteral Tube, q12h perflutren lipid microsphere (Definity) injection 0.5 mL, Intravenous, intra- Procedure multiple tamsulosin (Flomax) capsule 0.4 mg, Enteral Tube, QDAY triamcinolone acetonide (Kenalog) 0.1 % ointment, Topical, BID verapamil (Isoptin) tablet 40 mg, Enteral Tube, q8h vitamin D3 (Cholecalciferol) 25 MCG (1000 UNITS) tablet 2,000 Units, Enteral Tube, QDAY [COMPLETED] 0.9% NaCl IV bolus, Intravenous, Once [COMPLETED] 0.9% NaCl IV bolus, Intravenous, Once [COMPLETED] lidocaine (Xylocaine) 1 % injection, Subcutaneous, Once Labs: Recent Labs Component Name 11/15/2221111/14/22 0239 11/13/22 0210 WBC 5.5 4.7 2.7* HGB 10.0* 9.9* 9.8* HCT 32.6* 32.8* 30.8* PLTCOUNT 404* 364 334 Recent Labs Component Name 11/15/222 06/15/22 0757 12/09/18 0812 SODIUM - - 138 POTASSIUM 4.0 - 3.8 CHLORIDE - - 102 CO2 26 - 24 BUN 12 - 10 CREATININE 0.50* - 0.82 GLUCOSE 115 - 120* CALCIUM 8.6 - 9.4 ALBUMIN - - 4.5 ALKPHOS 80 - 56 ALT 237* - 17 AST 104* - 18 TBIL - - 0.3 TPROT - - 8.4* EGFR >90 - >60 ANIONGAP 12 - 12 - = values in this interval not displayed. Cultures: Blood cultures, urine cultures negative to date. Assessment Consuelo Darby is a 42 year old female with history of HTN, GERD, migraine who presented with right MCA stroke . Dermatology was consulted 11/10/22 for rash eruption . 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 We favor the diagnosis to be exanthematous drug eruption as patient has continuedto improve off of cefepime (d/c'ed 11/12). ASSESSMENT: Exanthematous drug eruptions are the most common of all medication-induced drug rashes. Onset is usually within 7-10 days of exposure to the culprit drug, and the eruption may occur even if the offending medication has already been discontinued. Commonly implicated medications include aminopenicillins, sulfonamides, cephalosporins, aromatic anticonvulsants, allopurinol, and antiretrovirals (abacavir and nevirapine), among others. Among the patient's medications that are known to cause exanthematous drug eruption, per Cristiana's Pocketbook are cefepime, doxycycline, vancomycin, ceftriaxone. Of these, the most commonly reported is cefepime, which according to Cristiana's has a 1.8% chance of developing an exanthematous eruption. The others have been reported, but prevalence is not described by Cristiana. DRESS was considered in the differential diagnosis, however REGISCAR score is 0, making DRESS unlikely. Fever etiology favored to be related to vancomycin infusion or infection. . In this patient, the offending medication is most culprit is cefepime which was started on November 05 and discontinued 11/12. Vancomycin was discontinued 11/12 as well. Patient has remained afebrile. Eruption is no longer pruritic- patient only complains of itchiness at site of EKG lead adhesives. PLAN: - Discussed with patient and primary team that morbilliform drug reactions are non-life threateningand are not considered absolute contraindications to future treatment with cefepime (favored culprit) - Continue daily CBC with diff and CMP - Stop topical Benadryl cream (can be a cause of contact dermatitis) and is not effective as an antipruritic - Recommended family purchase Cerave anti-itch cream, if itching is bothersome enough - For adhesive sensitivity, when removed, use triamcinolone 0.1% ointment BID to affected areas - Advised RN to see if central supply could provide some hypoallergenic adhesives for patient Case was discussed with dermatology attending Dr. Lindsay, who agrees with the above A/P. Thank you for this consult. Dermatology will sign off but would be happy to answer any further questions. Jean Perry MD [facility] Dermatology Resident, PGY-4 Associated attestation - Jovany Lindsay MD - 11/15/2022 9:24 PM CDT Attending Physician Supervisory Note I have seen and examined the patient with the resident and I agree with the findings and plan of care as documented by the resident. Date of Service : 11/15/2022 Jovany Lindsay MD Professor Department of Dermatology [facility] * Jean Perry MD - 11/14/2022 5:00 PM CDT Dermatology Inpatient Consult Note Name: Consuelo Darby : 1980 Sex: female Date of Admission: 10/19/2022 Dermatology Attending: Neftali Reason for consultation: Rash HPI: Consuelo Darby is a 42 year old female with a PMH of migraine, GERD, HTN who presented with rightMCA stroke on 10/19/22. Revascularization performed, developed cerebral edema and had decompressive hemicraniectomy on 10/20 During stroke workup, vegetation found on aortic side of left coronary cusp.ID was consulted to rule out infective endocarditis, cultures negative to date, empiric antibioticswere started on 10/25 including vancomycin, ceftriaxone. On 11/05, ceftriaxone was stopped and switched to cefepime, and doxycycline was started. 11/10, a rash was noted to have started on the neck. Since it has spread to the extremities, and some of the trunk. Per family, the rash is pruritic. Family also notes that after first administration of vancomycin she developed a fever and a rash that resolved with benadryl. Has not been an issue since co- administering benadryl with vanc. Rash has dramatically improved with intensive skin care. OTHER HISTORY HISTORIES Past Medical History: Diagnosis Date ??? Abdominal [...] file Occupational History ??? 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 Smoking status: Former Packs/day: 0.50 Types: Cigarettes Quit date: 2015 Years since quittin.6 ??? Smokeless tobacco: Never Vaping Use ??? [...] No Stress: No Stress Concern Present (10/19/2022) [employer] [place] [employer] - Occupational Stress Questionnaire ??? Feeling of Stress : Only a little Housing Stability: Low Risk (10/19/2022) Housing Stability Vital Sign ??? Unable to Pay for Housing in the Last Year: No ??? Number of Places Lived in the Last Year: 1 ??? Unstable Housing in the Last Year: No ALLERGIES: Allergies Allergen Reactions ??? 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 Current Outpatient Medications on File Prior to Encounter Medication Sig Dispense Refill ??? amitriptyline (Elavil) 50 MG tablet Take 2 (two) tablets by mouth at bedtime ??? Cetirizine HCl (ZYRTEC PO) Take 10 mg by mouth once daily ??? levonorgestrel-ethinyl estradiol (LESSINA-28) 0.1-20 MG-MCG tablet TAKE 1 TABLET BY MOUTH EVERYDAY FOR CONTROL Reasons: Control Treatment 84 tablet 4 ??? metoprolol tartrate IR (Lopressor) 25 MG tablet Take 1 (one) tablet by mouth 2 times daily ??? omeprazole (PriLOSEC) 20 MG capsule Take 20 mg by mouth daily before breakfast ??? verapamil SR 24hr (Verelan) 120 MG capsule Take 1 (one) capsule by mouth at bedtime ??? Vitamin D3, cholecalciferol, 50 MCG (1999 UT) tablet Take 2,000 Units by mouth once daily PHYSICAL EXAM: Temp (24hrs), Av.7 ??F (36.5 ??C), Min:97.5 ??F (36.4 ??C), Max:97.9 ??F (36.6 ??C) Vitals: 11/13/22 2332 11/14/22 0408 11/14/22 0758 11/14/22 1215 BP: 108/67 112/61 105/58 111/73 Pulse: 82 91 79 84 Resp: 16 16 Temp: 97.5 ??F (36.4 ??C) 97.8 ??F (36.6 ??C) 97.9 ??F (36.6 ??C) 97.5 ??F (36.4 ??C) SpO2: 96% 99% 96% 99% Weight: Height: Body mass index is 36.05 kg/m??. Physical Examination General: no acute distress Skin: full body skin exam was conducted and was normal with the following exceptions: ?? Morbilliform eruption noted on neck; chest, bilateral upper arms, thighs resolved ?? No LAD appreciated on exam ?? No facial edema or erythema appreciated See pictures in media tab DATA REVIEW MEDICATIONS FOR CURRENT ENCOUNTER: 0.9% NaCl injection 10-40 mL, Intracatheter, q8h 0.9% NaCl injection 3 mL, Intracatheter, q8h doxycycline monohydrate capsule 100 mg, Enteral Tube, q12h guaiFENesin (Robitussin) solution 10 mL, Enteral Tube, q12h loratadine (Claritin) tablet 10 mg, Enteral Tube, QDAY meropenem (Merrem) 2,000 mg in 0.9% NaCl IV 140 mL IVPB, Intravenous, q8h metoprolol tartrate IR (Lopressor) tablet 25 mg, Enteral Tube, q12h perflutren lipid microsphere (Definity) injection 0.5 mL, Intravenous, intra- Procedure multiple tamsulosin (Flomax) capsule 0.4 mg, Enteral Tube, QDAY triamcinolone acetonide (Kenalog) 0.1 % ointment, Topical, BID verapamil (Isoptin) tablet 40 mg, Enteral Tube, q8h vitamin D3 (Cholecalciferol) 25 MCG (1000 UNITS) tablet 2,000 Units, Enteral Tube, QDAY [COMPLETED] enoxaparin (Lovenox) injection 100 mg, Subcutaneous, q12h [START ON 11/15/2022] lansoprazole (Prevacid) suspension 30 mg, Enteral Tube, QDAY BEFORE BREAKFAST Labs: Recent Labs Component Name 11/14/22 0239 11/13/22 0210 11/12/22 0532 WBC 4.7 2.7* 4.8 HGB 9.9* 9.8* 9.4* HCT 32.8* 30.8* 30.2* PLTCOUNT 364 334 333 Recent Labs Component Name 11/14/22 0239 06/15/22 0757 12/09/18 0812 SODIUM - - 138 POTASSIUM 3.9 - 3.8 CHLORIDE - - 102 CO2 25 - 24 BUN 11 - 10 CREATININE 0.51* - 0.82 GLUCOSE 109 - 120* CALCIUM 8.6 - 9.4 ALBUMIN - - 4.5 ALKPHOS 78 - 56 ALT 278* - 17 AST 158* - 18 TBIL - - 0.3 TPROT - - 8.4* EGFR >90 - >60 ANIONGAP 15 - 12 - = values in this interval not displayed. Cultures: Blood cultures, urine cultures negative to date. Assessment Consuelo Darby is a 42 year old female with history of HTN, GERD, migraine who presented with right MCA stroke . Dermatology was consulted 11/10/22 for rash eruption . 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 We favor the diagnosis to be exanthematous drug eruption as patient has continuedto improve off of cefepime (d/c'ed 11/12). ASSESSMENT: Exanthematous drug eruptions are the most common of all medication-induced drug rashes. Onset is usually within 7-10 days of exposure to the culprit drug, and the eruption may occur even if the offending medication has already been discontinued. Commonly implicated medications include aminopenicillins, sulfonamides, cephalosporins, aromatic anticonvulsants, allopurinol, and antiretrovirals (abacavir and nevirapine), among others. Among the patient's medications that are known to cause exanthematous drug eruption, per Cristiana's Pocketbook are cefepime, doxycycline, vancomycin, ceftriaxone. Of these, the most commonly reported is cefepime, which according to Cristiana's has a 1.8% chance of developing an exanthematous eruption. The others have been reported, but prevalence is not described by Cristiana. DRESS was considered in the differential diagnosis, however REGISCAR score is 0, making DRESS unlikely. Fever etiology favored to be related to vancomycin infusion or infection. . In this patient, the offending medication is most culprit is cefepime which was started on November 05 and discontinued 11/12. Vancomycin was discontinued 11/12 as well. PLAN: - Discussed with patient and primary team that morbilliform drug reactions are non-life threateningand are not considered absolute contraindications to future treatment with cefepime (favored culprit) - Continue daily CBC with diff and CMP - triamcinolone 0.1% ointment BID to affected areas - recommend obtaining urine eosinophil measurement Case was discussed with dermatology attending Dr. Lindsay, who agrees with the above A/P. Thank you for this consult. Dermatology will continue to follow. Jean Perry MD [facility] Dermatology Resident, PGY-4 Associated attestation - Jovany Lindsay MD - 11/15/2022 9:45 PM CDT Attending Physician Supervisory Note Discussed with resident, pt is improving. Pt was not seen by me. Jovany Lindsay MD Professor Department of Dermatology [facility] * Alhaji Otoole MD - 11/14/2022 7:57 AM CDTAssociated Order(s): IP CONSULT TO HEMATOLOGY [facility] Hematology/ Oncology CONSULT NOTE Admission Date: 10/19/2022 Patient: Consuelo Darby Sex: female Age: [age] year old Date of : 1980 Code Status: Full Code SUBJECTIVE Consult Question: Neutropenia History of Present Illness: This is a 42 year old female w/ pmhx hypertension, migraine, GERD who was admitted on 10/19 with RMCA occlusion s/p angiogram and revascularization by interventional radiology. Hospital course c/b cerebral edema, no s/p decompressive hemicraniectomy on 10/20/2022. Patient underwent SARAH for embolic/ stroke work up revealing vegetations on the aortic side of left coronary cusp. Cultures have been negative. She is on four weeks of broad spectrum antibiotics for possible culture negative infective antibiotics per ID recs. Hospital course complicated by persistent fevers despite hospitalizations. CTabdomen pelvis concerning for abscess under PEG tube too small fur surgery or IR intervention. Alsoinflammatory mass in right groin Noted from recent intervention, observed by vascular w/o interventions for now. MRI brain cannot rule out cerebritis/ meningitis. Patient's current antibiotic regimenis Meropenem and doxycycline. Vancomycin d/c for concerns of drug fevers. Patient has been afebrilefor greater than 30 hours. She is hemodynamically stable. No leukocytosis. Absolute neutrophils 0.75 on 11/13, from 3.37 on 11/12. Today absolute neutrophils is 1.50. No fevers, chills, chest pain, SOB. No nausea or vomiting. Past Medical History: Current Past Medical History Reviewed & Updated Past Medical History: Diagnosis Date ??? Abdominal pain, right upper quadrant ??? GERD (gastroesophageal reflux disease) ??? History of hypertension gestational hypertension Past Surgical History: Current Surgial History Reviewed & Updated Past Surgical History: Procedure Laterality Date ??? [...] N/A; ESOPHAGOGASTRODUODENOSCOPY (EGD) DIAGNOSTIC with PEG Placement Family History: Current Family History Reviewed & Updated Family History Problem Relation Name Age of Onset ??? Cancer Maternal Grandfather Lung ??? Diabetes Maternal Grandfather ??? Diabetes Maternal Grandmother ??? Hypertension Mother ??? Thyroid Disease Mother Social History: Current Social History Reviewed & Updated Social History Socioeconomic History ??? Marital status: Spouse name: Not on file ??? Number of children: Not on file ??? Years of education: Not on file ??? Highest education level: Not on file Occupational History ??? 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 Smoking status: Former Packs/day: 0.50 Types: Cigarettes Quit date: 2014 Years since quittin.6 ??? Smokeless tobacco: Never Vaping Use ??? [...] No Stress: No Stress Concern Present (10/19/2022) [place] [place] [employer] - Occupational Stress Questionnaire ??? Feeling of Stress : Only a little Housing Stability: Low Risk (10/19/2022) Housing Stability Vital Sign ??? Unable to Pay for Housing in the Last Year: No ??? Number of Places Lived in the Last Year: 1 ??? Unstable Housing in the Last Year: No Allergies: Current Allergies Reviewed & Updated Allergies Allergen Reactions ??? 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 Home Medications: Current Medications List Reviewed & Updated Current Medications amitriptyline (Elavil) 50 MG tablet Take 2 (two) tablets by mouth at bedtime Cetirizine HCl (ZYRTEC PO) Take 10 mg by mouth once daily levonorgestrel-ethinyl estradiol (LESSINA-28) 0.1-20 MG-MCG tablet TAKE 1 TABLET BY MOUTH EVERY DAYFOR CONTROL Reasons: Control Treatment metoprolol tartrate IR (Lopressor) 25 MG tablet Take 1 (one) tablet by mouth 2 times daily omeprazole (PriLOSEC) 20 MG capsule Take 20 mg by mouth daily before breakfast verapamil SR 24hr (Verelan) 120 MG capsule Take 1 (one) capsule by mouth at bedtime Vitamin D3, cholecalciferol, 50 MCG (2000 UT) tablet Take 2,000 Units by mouth once daily Review of Systems: PER HPI OBJECTIVE Vital Signs & Weight: Temp: [97.2 ??F (36.2 ??C)-97.9 ??F (36.6 ??C)] 97.9 ??F (36.6 ??C) Pulse: [76-91] 79 Resp: [16] 16 BP: (100-119)/(58-70) 105/58 Wt Readings from Last 3 Encounters: 11/06/22 95.3 kg (210 lb) 11/09/22 95.3 kg (210 lb 1.6 oz) 10/23/22 95.3 kg (210 lb) Intake Output: IO last 3 completed shifts In: 1140 (12 mL/kg) [Tube:380; Enteral:760] Out: 6400 (67.2 mL/kg) [Urine:6400 (1.9 mL/kg/hr)] Net: -5260 Weight: 95.3 kg Physical Exam: Physical Exam HENT: Head: Normocephalic and atraumatic. Comments: Post surgical edema on the right side of head Mouth/Throat: Mouth: Mucous membranes are moist. Cardiovascular: Rate and Rhythm: Normal rate and regular rhythm. Pulses: Normal pulses. Heart sounds: Normal heart sounds. Pulmonary: Effort: Pulmonary effort is normal. Breath sounds: Normal breath sounds. Abdominal: Palpations: Abdomen is soft. Skin: General: Skin is warm and dry. Capillary Refill: Capillary refill takes less than 2 seconds. Neurological: General: No focal deficit present. Mental Status: She is alert and oriented to person, place, and time. Psychiatric: Mood and Affect: Mood normal. Lab Results: Current Labs Reviewed CBC: Recent Labs Lab 11/14/22238 WBC 4.7 HGB 9.9* HCT 32.8* MCV 94.5 PLTCOUNT 364 BMP: Recent Labs Lab 11/14/22238 NA 140 POTASSIUM 3.9 CL 104 CO2 25 BUN 11 CREATININE 0.51* CALCIUM 8.6 MAGNESIUM 2.0 Hepatic: Recent Labs Lab 11/14/22238 AST 158* ALT 278* TBILI 0.3 ALKPHOS 78 ALB 2.4* PROT 6.5 Coagulation: Recent Labs Lab 11/14/22238 PT 15.9* INR 1.3 PTT 45.9* ABG: Recent Labs Lab 10/30/22 1333 PH 7.40 PCO2 39 PO2 228* Cardiac: No results for input(s): TROPONINI in the last 52718 hours. Amylase/Lipase: No results for input(s): CHELI in the last 08691 hours. Recent Labs Component Name 07/07/13 2319 LIPASE 157 Thyroid: Recent Labs Lab 11/13/22 0210 TSH 5.706* Lipid: Recent Labs Lab 10/20/22 0302 LDLCALC 91 HDL 42 Microbiology: Current Microbiology Reviewed Imaging & Studies: Current Imaging & Relevant Studies Reviewed ASSESSMENT & PLAN Primary Team: Neurology Consult Question: Neutropenia Assessment & Plan: # Mild to moderate neutropenia .75-1.50 Likely transient in the setting of infection vs antibiotics Recommend No intervention needed Continue to monitor for now Hem oncology will sign off for now. Thank you for this interesting consult. Please call consult team with any questions. The above assessment and plan will be discussed with the attending. This note is not final until attested by attending physician. Alhaji Otoole MD Internal Medicine Resident 11/14/2022 8:00 AM Associated attestation - Nancy Chua MD - 11/14/2022 3:27 PM CDT HEMATOLOGY/ONCOLOGY ATTENDING PHYSICIAN ATTESTATION: Date of Service: 11/14/2022 Patient was seen and examined independently and case discussed with the resident/fellow. I confirm their findings and agree with the plan of care as outlined. Mild/moderate neutropenia in setting of prolonged hospitalization complicated by CVA s/p thrombectomy, cerebral edema and midline shift s/p R hemicraniectomy, AV vegetations, RLE arterial occlusions s/p repair, PEG insertion, recurrent fevers, liver dysfunction, numerous antibiotics (cefazolin, vanco, cefrtriaxone, cefepime, metronidazole). Suspect myelosuppression multifactorial secondary to medications, inflammation. Unlikely primary hematologic disorder contributing and no indication for further hematologic workup or G-CSF administration as long as ANC >500. Hem/Onc consult service will sign off. Please don't hesitate to contact our service if we can be offurther assistance during current hospitalization. * Isacc Palacios MD - 11/12/2022 5:45 PM CDT [facility] INTERNAL MEDICINE CONSULT NOTE Admission Date: 10/19/2022 Patient: Consuelo Darby Sex: female Age: [age] year old Date of : 1980 Code Status: Full Code SUBJECTIVE Consult Question: elevated LFTs History of Present Illness: Consuelo Darby is a 42 year old female with past medical history notable for GERD, migraine who has an extended hospital course related to CVA. She presented on 10/19/2022 for acute stroke. She was found to have Right M1 occlusion s/p TNK and MT for LVO. Course further complicated by cerebral edema and midline shift s/p right hemicraniectomy. 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 Course further complicated by right femoral and iliac arterialocclusion which was repaired by vascular surgery 10/30. Peg tube placed 11/01. Fevers developed again11/03. CT scan showing fluid around PEG site, acute care surgery to OR 11/10 for gastropexy with retention sutures. She has had persistent fevers of uncertain source. 11/09 - LFTs mildly elevated in hepatocellular pattern, rising 9/3 to 266/220 (alt, ast respectively) for this internal medicine was consulted At bedside, patient is awake and interactive, history obtained from patient and family at bedside. No hx of liver disease to their knowledge, on chart review mild hepatocellular injury 2008 during a . LFTs were normal on presentation this admission. Gallbladder is surgically absent. She does endorse RUQ pain. 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 Abdominal pain, right upper quadrant ??? GERD (gastroesophageal reflux disease) ??? History of hypertension gestational hypertension Past Surgical History: Current Surgial History Reviewed & Updated Past Surgical History: Procedure Laterality Date ??? [...] N/A; ESOPHAGOGASTRODUODENOSCOPY (EGD) DIAGNOSTIC with PEG Placement Family History: Current Family History Reviewed & Updated Family History Problem Relation Name Age of Onset ??? Cancer Maternal Grandfather Lung ??? Diabetes Maternal Grandfather ??? Diabetes Maternal Grandmother ??? Hypertension Mother ??? Thyroid Disease Mother Social History: Current Social History Reviewed & Updated Social History Socioeconomic History ??? Marital status: Spouse name: Not on file ??? Number of children: Not on file ??? Years of education: Not on file ??? Highest education level: Not on file Occupational History ??? 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 Smoking status: Former Packs/day: 0.50 Types: Cigarettes Quit date: 2015 Years since quittin.6 ??? Smokeless tobacco: Never Vaping Use ??? [...] No Stress: No Stress Concern Present (10/19/2022) [employer] [employer] - Occupational Stress Questionnaire ??? Feeling of Stress : Only a little Housing Stability: Low Risk (10/19/2022) Housing Stability Vital Sign ??? Unable to Pay for Housing in the Last Year: No ??? Number of Places Lived in the Last Year: 1 ??? Unstable Housing in the Last Year: No Allergies: Current Allergies Reviewed & Updated Allergies Allergen Reactions ??? 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 Home Medications: Current Medications List Reviewed & Updated Current Medications amitriptyline (Elavil) 50 MG tablet Take 2 (two) tablets by mouth at bedtime Cetirizine HCl (ZYRTEC PO) Take 10 mg by mouth once daily levonorgestrel-ethinyl estradiol (LESSINA-28) 0.1-20 MG-MCG tablet TAKE 1 TABLET BY MOUTH EVERY DAYFOR CONTROL Reasons: Control Treatment metoprolol tartrate IR (Lopressor) 25 MG tablet Take 1 (one) tablet by mouth 2 times daily omeprazole (PriLOSEC) 20 MG capsule Take 20 mg by mouth daily before breakfast verapamil SR 24hr (Verelan) 120 MG capsule Take 1 (one) capsule by mouth at bedtime Vitamin D3, cholecalciferol, 50 MCG (1999 UT) tablet Take 2,000 Units by mouth once daily Review of Systems: Review of Systems Constitutional: Positive for chills and fever. Gastrointestinal: Positive for abdominal pain. Negative for diarrhea, nausea and vomiting. Skin: Positive for rash. OBJECTIVE Vital Signs & Weight: Temp: [97.9 ??F (36.6 ??C)-102.9 ??F (39.4 ??C)] 100.3 ??F (37.9 ??C) Pulse: [78-119] 119 Resp: [16-19] 19 BP: (93-135)/(52-77) 135/70 Wt Readings from Last 3 Encounters: 11/06/22 95.3 kg (210 lb) 11/09/22 95.3 kg (210 lb 1.6 oz) 10/23/22 95.3 kg (210 lb) Intake Output: IO last 3 completed shifts In: 1706 (17.9 mL/kg) [Tube:330; Enteral:1376] Out: 2550 (26.8 mL/kg) [Urine:2550 (0.7 mL/kg/hr)] Net: -844 Weight: 95.3 kg Physical Exam: Physical Exam Constitutional: Comments: Post surgical edema of the right head and face, no purulence noted around surgical incisions HENT: Mouth/Throat: Mouth: Mucous membranes are moist. Eyes: General: No scleral icterus. Pupils: Pupils are equal, round, and reactive to light. Cardiovascular: Rate and Rhythm: Normal rate and regular rhythm. Abdominal: General: Abdomen is flat. Palpations: Abdomen is soft. Comments: Hyperactive bowel sounds, peg site c/d/i, ttp RUQ Musculoskeletal: Comments: Right grain surgical incision c/d/i Skin: General: Skin is warm and dry. Capillary Refill: Capillary refill takes less than 2 seconds. Neurological: Mental Status: She is alert. Lab Results: Current Labs Reviewed CBC: Recent Labs Lab 11/12/22 0532 WBC 4.8 HGB 9.4* HCT 30.2* MCV 92.4 PLTCOUNT 333 BMP: Recent Labs Lab 11/12/22 0532 NA 136 POTASSIUM 3.3* CL 105 CO2 21* BUN 13 CREATININE 0.59 CALCIUM 7.8* MAGNESIUM 1.7 Hepatic: Recent Labs Lab 11/12/22 0532 AST 220* ALT 266* TBILI 0.3 ALKPHOS 75 ALB 2.5* PROT 6.5 Coagulation: Recent Labs Lab 11/12/22 0532 PT 22.1* INR 2.0 PTT 102.7* ABG: Recent Labs Lab 10/30/22 1333 PH 7.40 PCO2 39 PO2 228* Cardiac: No results for input(s): TROPONINI in the last 89408 hours. Amylase/Lipase: No results for input(s): CHELI in the last 73770 hours. Recent Labs Component Name 07/07/13 2319 LIPASE 157 Thyroid: Recent Labs Lab 11/06/22 0136 TSH 1.682 Lipid: Recent Labs Lab 10/20/22 0302 LDLCALC 91 HDL 42 Microbiology: Current Microbiology Reviewed Imaging & Studies: Current Imaging & Relevant Studies Reviewed Relevant labs reviewed as above also: HIV 4th gen -tiffany, hcv ab -tiffany, hbv ab+, hbv ag -tiffany ASSESSMENT & PLAN Primary Team: stroke Consult Question: elevated LFTS Assessment & Plan: Right middle cerebral artery stroke (CMS/HCC) (POA: Unknown) Acute cerebrovascular accident (CVA) due to embolism of right middle cerebral artery (CMS/HCC) (POA: Yes) Nihss score 9 (POA: Yes) Received intravenous tissue plasminogen activator (tPA) in emergency department (POA: Yes) GERD (gastroesophageal reflux disease) (POA: Yes) Hemianopsia (POA: Yes) Weakness (POA: Yes) Left-sided sensory deficit present (POA: Yes) Gaze palsy (POA: Yes) Migraine (POA: Unknown) Hypertension (POA: Unknown) Presence of externally removable percutaneous endoscopic gastrostomy (PEG) tube (CMS/HCC) (POA: Unknown) Anemia (POA: Yes) Hepatocellular injury (POA: No) # hepatocellular liver injury - mild - differential is broad at this time. Most suspect DILI secondary to beta lactam antibiotics or statin. Ischemic liver is possible as rise started after OR (lowest intraOP BP recorded 100/50) but this seems less likely. Given hypercoag state budd-chiari is also possible but less likely as patient on heparin - DILI from parenteral beta lactams is usually mild and self limited, current level of injury is not overall worrisome but should be trended - consider nonhepatic causes of elevations in ast/alt (rhabdomyolysis, hypothyroidism) ---Recommendations - obtain CK, repeat TSH reflex T4 - trend HFP daily - if LFTs rising tomorrow please obtain RUQ U/S with doppler across portal vein, EBV and CMV DNA PCR blood - agree with stopping cefe and flagyl and starting meropenem for this and recurrent fevers - agree with holding statin at this time - consult pharmacy for any other possible offending agents - limit tylenol to 2g daily (change order to 500 mg q6hrs) # recurrent fevers - no obvious source of infection at this time, appreciate ID input, recommend CSF sampling for viral etiologies of fever Thank you for this interesting consult. Internal Medicine will continue to follow. Please call consult team with any questions. Isacc Palacios MD Chief Resident Internal Medicine 11/12/2022 6:14 PM * Gisselle Jean Baptiste - 11/12/2022 2:12 PM CDT Images from the original note were not included. GENERAL MEDICINE INITIAL CONSULT NOTE Patient: Consuelo Darby 42 year old female Admit Date: 10/19/2022 Primary Team: Neurology REASON FOR CONSULT: Elevated LFTs SUBJECTIVE HISTORY OF PRESENT ILLNESS: Consuelo Darby is a 42 year old female with a PMHx of hemiplegic migraine, GERD, and GENESIS who presented on 10/19/2022 with acute ischemic stroke s/p right hemicraniectomy, and medicine team was consulted on 11/12/22 for elevated LFTs. En route left sided weakness and dysarthria improved, but was noted to have left gaze palsy, left hemianopsia, midl dysarthria, and extinction. She underwent TNK and TICI2b revascularization of the RMCA. Repeat CTH showed edema in the R MCA. Patient underwent right hemicraniectomy, post-op showingstable midline shift. Initial hypercoagulability workup was negative. 10/23 SARAH was concerning for Ao rtic vegetations and was placed on IV abx. On 11/05 patient developed fevers and was placed on broadspectrum antibiotics. On 10/23 patient was started on Lipitor was normal LFTs. Doxycycline and Cefepime were started 11/05 and Vancomycin was continued. Hepatic Function panel from 11/09 showed and elevated AST of 67 and ALTof 77. On 11/10 patient started to have RUQ pain per mother. On 11/10 Flagyl was added to abx regimen. On 11/12/22 hepatic functional panel show AST of 220 and ALT of 266. Patient has pain regimen including Tylenol 650mg q6h which she has been receiving 3-5 times per day. INTERVAL HISTORY: This AM patient follows commands and motions with a thumbs up with her right hand to answer questions. She confirms abdominal pain and tenderness to the RUQ, and confirms fevers as well. Mother reports patient had abdominal pain starting last Sunday after the PEG tube was adjusted, however that pain was in the upper middle abdomen. Patient history has been reviewed in the medical record - including PMHx, PSHx, Social & Familyhistories. CURRENT MEDS: ??? *Hold/Avoid Medication Other 799 and 1999 ??? 0.9% NaCl 10-40 mL Intracatheter q8h ??? 0.9% NaCl 3 mL Intracatheter q8h ??? acetaminophen 650 mg Enteral Tube q6h ??? doxycycline monohydrate 100 mg Enteral Tube q12h ??? enoxaparin 1 mg/kg Subcutaneous q12h ??? guaiFENesin 10 mL Enteral Tube q12h ??? [START ON 11/13/2022] lansoprazole 30 mg Enteral Tube QDAY BEFORE BREAKFAST ??? loratadine 10 mg Enteral Tube QDAY ??? meropenem 2,000 mg Intravenous q8h ??? metoprolol tartrate IR 25 mg Enteral Tube q12h ??? perflutren lipid microsphere 0.5 mL Intravenous intra-Procedure multiple ??? polyethylene glycol 3350 17 g Enteral Tube BID ??? senna-docusate 2 tablet Enteral Tube QDAY ??? sodium - potassium phosphates 1 tablet Enteral Tube BID ??? tamsulosin 0.4 mg Enteral Tube QDAY ??? vancomycin 1,500 mg Intravenous q8h ??? vancomycin (VANCOCIN) IV dose per pharmacy Does not apply DIRECTED ??? verapamil 40 mg Enteral Tube q8h ??? Vitamin D3 (cholecalciferol) 2,000 Units Enteral Tube QDAY OBJECTIVE VITALS I's & O's Temp: [97.9 ??F (36.6 ??C)-102.6 ??F (39.2 ??C)] 99.8 ??F (37.7 ??C) Pulse: [78-111] 103 Resp: [16-18] 17 BP: (93-124)/(52-77) 100/77 Estimated body mass index is 36.05 kg/m?? as calculated from the following: Height as of this encounter: 1.626 m (5' 4 ). Weight as of this encounter: 95.3 kg (210 lb). Intake/Output Summary (Last 24 hours) at 11/12/2022 1414 Last data filed at 11/12/2022 1015 Gross per 24 hour Intake 526 ml Output 1300 ml Net -774 ml General appearance: Alert, cooperative. Nonverbal. Head: Post-surgical changes present on cranium. PEERL. Opens eyes spontaneously. Lungs: No wheezes, crackles, or rhonchi appreciated. No use of accessory muscles. Heart: RRR, normal S1 and S2, no murmur noted. Abdomen: Soft, RUQ tenderness, non-distended. Bowel sounds normal. No masses, no organomegaly. Pulses: 2+ and symmetric. Skin: No skin ulcers or rash on cursory exam. Neurologic: Responsive, tracks eyes, follows commands. Doesn't move left extremities. Deloris present IV access site clean PERTINENT LABS Recent Labs Component Name 11/12/22 0532 10/27/22202810/27/22 0054 WBC 4.8 - 19.5* HGB 9.4* - 8.0* HCT 30.2* - 24.6* PLTCOUNT 333 - 519* PLATELET - - Occasional* - = values in this interval not displayed. Recent Labs Component Name 11/12/22 0532 11/11/22 1703 11/10/22 0223 06/15/22 0757 12/09/18 0812 07/25/18205503/01/16 0817 SODIUM - - - - 138 135* 141 POTASSIUM 3.3* 3.8 3.6 - 3.8 3.8 3.6 CHLORIDE - - - - 102 103 110* CO2 21* 22 24 - 24 21* 21* BUN 13 11 13 - 10 7 9 CREATININE 0.59 0.56 0.52* - 0.82 0.93 0.60 EGFR >90 >90 >90 - >60 >60 >60 GLUCOSE 120* 105 120* - 120* 105 83 CALCIUM 7.8* 8.4 8.4 - 9.4 9.2 8.1* - = values in this interval not displayed. Recent Labs Component Name 11/12/22 0532 11/09/22 0654 10/19/22 0824 AST 220* 67* 19 Component Name 11/12/22 11/09/22 10/19/22 0532 0654 0824 ALT 266* 77* 16 MICROBIOLOGY BC x2 (11/12/22): IP Current Antibiotics: Vancomycin and Meropenem PERTINENT IMAGING CT A/P 11/09/22: IMPRESSION: 1. Progressive soft tissue stranding with gas in the right inguinal region with an inflammatory mass encasing the right femoral vessels with mild narrowing of the femoral artery and moderate narrowing of the femoral vein. This could represent a postsurgical hematoma. Recommend correlation with symptoms and signs of superinfection. 2. Interval placement of a gastrostomy tube with a small gas and fluid collection along the inferior aspect of the gastrostomy tube insertion site and stomach, measuring 2.2 cm. ASSESSMENT AND PLAN Consuelo Darby is a 42 year old female who presented with acute ischemic stroke s/p hemicraniectomy with Medicine team consulted for elevated LFTs. Patient has been hepatocellular pattern of injurywithout signs of cholestasis and no current suspicion of hepatic ischemia suggesting drug induced he patocellular injury. #Elevated LFTs - LFTs up to ALT 266, AST 220 - Ddx: Hepatocellular injury pattern likely due to medication. Antibiotic induced liver injury possible, acetaminophen or statin induced injury less likely but possible; no cholestatic pattern nor isthere any sign of obstruction on CT. Additional possibility could be blood breakdown from hematoma or head surgery causing rise in LFTs - Has been receiving to 1950mg to 3250mg Acetaminophen per day - Was on Vanc, Flagyl, Doxy, and Cefepime, now switched to Vanc and Meropenem - Lipitor dc'ed per primary team - HepB Ag, HepC negative RECOMMENDATIONS - Limit Tylenol to 2g per day - OK to restart Lipitor for now given risks vs benefits, decision per primary team - Agree with switching Abx regimen to Vanc and Meropenem - Please obtain Hepatic Function Panel qd - Avoid hepatotoxins and maintain normotension - If LFT's continue to rise, obtain RUQ US The above recommendations have been discussed with the MEDICINE Consult attending, Dr. Palacios. See their attestation for further recommendations. Gisselle Washburnyer Internal Medicine, MS4 11/12/2022 Associated attestation - Isacc Palacios MD - 11/12/2022 6:18 PM CDT I have verified the documentation of the resident including all history, exam, and medical decision-making details. I have personally performed a physical exam and have personally reviewed the data to support my medical decision-making as outlined in their note. I agree with their assessment and plan other than any corrections/additions as documented below. Corrections/Additions: - See my independent consult note 11/12 Date of Service: 11/12/2022 Isacc Palacios MD * [place] Rodriguez MD - 11/12/2022 1:58 PM CDT Neurosurgery Consult Note Name: Consuelo Darby : 1980 Date of Admission:10/19/2022 Date of Consult:11/12/2022 1:58 PM Time of Evaluation: 10:00am Chief Complaint (CC): fever HISTORY OF PRESENT ILLNESS (HPI): Patient is a 42 year old female with past medical history including decompressive craniectomy foro stroke on 10/20/22. She presents to [facility] as a transfer 2/2 fever rfractory to abx treatement. {atient found to have abscess of PEG tube, but with refracctory fever and hx of DHC, patient received MRI with contrast. MRI demonstrates postoperative changes with no clear evidence of infectious fluid collection. Patient with no clear wound drainage, no changes in neurologic status. Patient continued to be on heparin drip for hypercoagulable state. Past Medical History: Diagnosis Date ??? Abdominal [...] N/A; ESOPHAGOGASTRODUODENOSCOPY (EGD) DIAGNOSTIC with PEG Placement Allergies Allergen Reactions ??? 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 Current Medications amitriptyline (Elavil) 50 MG tablet Take 2 (two) tablets by mouth at bedtime Cetirizine HCl (ZYRTEC PO) Take 10 mg by mouth once daily levonorgestrel-ethinyl estradiol (LESSINA-28) 0.1-20 MG-MCG tablet TAKE 1 TABLET BY MOUTH EVERY DAYFOR CONTROL Reasons: Control Treatment metoprolol tartrate IR (Lopressor) 25 MG tablet Take 1 (one) tablet by mouth 2 times daily omeprazole (PriLOSEC) 20 MG capsule Take 20 mg by mouth daily before breakfast verapamil SR 24hr (Verelan) 120 MG capsule Take 1 (one) capsule by mouth at bedtime Vitamin D3, cholecalciferol, 50 MCG (1999 UT) tablet Take 2,000 Units by mouth once daily Current Facility-Administered Medications Medication ??? *Hold/Avoid warfarin (Coumadin) tablet ??? 0.9% NaCl injection 10-40 mL ??? 0.9% NaCl injection 10-40 mL ??? 0.9% NaCl injection 3 mL And ??? 0.9% NaCl injection 3 mL ??? acetaminophen (Tylenol) tablet 650 mg ??? bisacodyl (Dulcolax) suppository 10 mg ??? diphenhydrAMINE-zinc acetate (Benadryl Extra Strength) 2-0.1 % cream ??? doxycycline monohydrate capsule 100 mg ??? enoxaparin (Lovenox) injection 100 mg ??? guaiFENesin (Robitussin) solution 10 mL ??? [START ON 11/13/2022] lansoprazole (Prevacid) suspension 30 mg ??? loratadine (Claritin) tablet 10 mg ??? meropenem (Merrem) 2,000 mg in 0.9% NaCl IV 140 mL IVPB ??? metoprolol tartrate IR (Lopressor) tablet 25 mg ??? oxyCODONE (immediate release) (Roxicodone) tablet 5 mg ??? perflutren lipid microsphere (Definity) injection 0.5 mL ??? polyethylene glycol 3350 (Miralax) packet 17 g ??? senna-docusate (Senokot-S) tablet 2 tablet ??? sodium - potassium phosphates (K Phos Neutral) tablet 1 tablet ??? tamsulosin (Flomax) capsule 0.4 mg ??? throat lozenge 1 lozenge ??? vancomycin (Vancocin) 1,500 mg in 500 mL NaCl IVPB Premix ??? vancomycin (Vancocin) IV dose per pharmacy ??? verapamil (Isoptin) tablet 40 mg ??? vitamin D3 (Cholecalciferol) 25 MCG (1000 UNITS) tablet 2,000 Units Social History Tobacco Use ??? Smoking status: Former Packs/day: 0.50 Types: Cigarettes Quit date: 2015 Years since quittin.6 ??? Smokeless tobacco: Never Vaping Use ??? Vaping Use: Never used Substance Use Topics ??? Alcohol use: No Alcohol/week: 0.0 - 1.7 standard drinks of alcohol Comment: Occasional Family History Problem Relation Name Age of Onset ??? Cancer Maternal Grandfather Lung ??? Diabetes Maternal Grandfather ??? Diabetes Maternal Grandmother ??? Hypertension Mother ??? Thyroid Disease Mother REVIEW OF SYSTEMS Deferred PHYSICAL EXAM BP 100/77 Pulse 103 Temp 99.8 ??F (37.7 ??C) (Axillary) Resp 17 Ht 1.626 m (5' 4 ) Wt 95.3 kg (210 lb) SpO2 96% General: NAD Neuro: Aphasic, PERRL, EOMI, face symmetric, tongue midline, sternocleidomastoid strong, follows commands with good strength on right, paretic on left (stable) Wound: incision remains well approximated and intact with no evidence of erythema, warmth, drainage. Flap is soft without fluctuance. LABORATORY Recent Labs Component Name 11/12/22 0532 WBC 4.8 HGB 9.4* HCT 30.2* PLTCOUNT 333 Recent Labs Component Name 11/12/22 0532 06/15/22 0757 12/09/18 0812 NA 136 - - POTASSIUM 3.3* - 3.8 CHLORIDE - - 102 CO2 21* - 24 BUN 13 - 10 CREATININE 0.59 - 0.82 GLUCOSE 120* - 120* - = values in this interval not displayed. Recent Labs Component Name 11/12/22 0532 INR 2.0 Ethanol: Lab results smartLinks are not currently available RADIOLOGY MRI: ?? IMPRESSION: ?? 1. Redemonstration of postsurgical changes from right decompressive hemicraniectomy and evolving large volume right MCA territory infarct as described above. Mild interval increase in the caliber of lateral and third ventricles could be secondary to decreased mass effect, less likely hydrocephalus, continued attention recommended on follow-up. ?? 2. Interval resolution of midline shift compared to prior MRI. Interval increased linear susceptibility along the medial margin of the infarction at the periventricular white matter could be secondary to hemosiderin deposition/petechial hemorrhages. ?? 3. Significant interval increase in the cortical [...] of evolving subacute infarction versus developing cerebritis. ?? 4. There is also interval increase restricted diffusion in the extra-axial fluid collection overlying the craniectomy site could be secondary to evolving blood products/postsurgical changes versus secondary to superimposed infection, clinical correlation is recommended. ?? These findings were discussed with patient's care provider, Dr. Tucker, stroke team, by on 11/10/2022 11:59 AM with read back verification. ?? Assessment: 42 year old female with prior C for stroke now with refractory fever. MRI wihtout clear discernible infectious fluid collection. No wound defect to explain fever. Plan: - Continue to monitor neurologic exam - Continue infectious workup for possible etiology of fever - Patient is OK for LP - AAT - HELIO - Will continue to follow peripherally Case discussed with Dr. Marquez. Valdez Rodriguez MD 11/12/2022 1:58 PM * Tim Rios MD - 11/12/2022 1:53 PM CDTAssociated Order(s): IP CONSULT TO DERMATOLOGY Dermatology Inpatient Consult Note Name: Consuelo Darby : 1980 Sex: female Date of Admission: 10/19/2022 Dermatology Attending: Neftali Reason for consultation: Rash x 2 days HPI: Consuelo Darby is a 42 year old female with a PMH of migraine, GERD, HTN who presented with rightMCA stroke on 10/19/22. Revascularization performed, developed cerebral edema and had decompressive hemicraniectomy on 10/20 During stroke workup, vegetation found on aortic side of left coronary cusp.ID was consulted to rule out infective endocarditis, cultures negative to date, empiric antibioticswere started on 10/25 including vancomycin, ceftriaxone. On 11/05, ceftriaxone was stopped and switched to cefepime, and doxycycline was started. 2 days ago, a rash was noted to have started on the neck. Since it has spread to the extremities, and some of the trunk. Per family, the rash is pruritic. Family also notes that after first administration of vancomycin she developed a rash that resolved with benadryl. Has not been an issue since co-administering benadryl with vanc. OTHER HISTORY HISTORIES Past Medical History: Diagnosis Date ??? Abdominal [...] N/A; ESOPHAGOGASTRODUODENOSCOPY (EGD) DIAGNOSTIC with PEG Placement Family History Problem Relation Name Age of [...] History ??? 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 Smoking status: Former Packs/day: 0.50 Types: Cigarettes Quit date: 2015 Years since quittin.6 ??? Smokeless tobacco: Never Vaping Use ??? [...] No Stress: No Stress Concern Present (10/19/2022) [employer] [place] [employer] - Occupational Stress Questionnaire ??? Feeling of Stress : Only a little Housing Stability: Low Risk (10/19/2022) Housing Stability Vital Sign ??? Unable to Pay for Housing in the Last Year: No ??? Number of Places Lived in the Last Year: 1 ??? Unstable Housing in the Last Year: No ALLERGIES: Allergies Allergen Reactions ??? 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 Current Outpatient Medications on File Prior to Encounter Medication Sig Dispense Refill ??? amitriptyline (Elavil) 50 MG tablet Take 2 (two) tablets by mouth at bedtime ??? Cetirizine HCl (ZYRTEC PO) Take 10 mg by mouth once daily ??? levonorgestrel-ethinyl estradiol (LESSINA-28) 0.1-20 MG-MCG tablet TAKE 1 TABLET BY MOUTH EVERYDAY FOR CONTROL Reasons: Control Treatment 84 tablet 4 ??? metoprolol tartrate IR (Lopressor) 25 MG tablet Take 1 (one) tablet by mouth 2 times daily ??? omeprazole (PriLOSEC) 20 MG capsule Take 20 mg by mouth daily before breakfast ??? verapamil SR 24hr (Verelan) 120 MG capsule Take 1 (one) capsule by mouth at bedtime ??? Vitamin D3, cholecalciferol, 50 MCG (2000 UT) tablet Take 2,000 Units by mouth once daily PHYSICAL EXAM: Temp (24hrs), Av.5 ??F (38.1 ??C), Min:97.9 ??F (36.6 ??C), Max:102.6 ??F (39.2 ??C) Vitals: 11/12/22 0713 11/12/22 1058 11/12/22 1156 11/12/22 1347 BP: 114/52 93/70 100/77 Pulse: 109 106 103 Resp: 17 17 Temp: (!) 101.2 ??F (38.4 ??C) (!) 102.2 ??F (39 ??C) (!) 102.6 ??F (39.2 ??C) 99.8 ??F (37.7 ??C) SpO2: 97% 94% 96% Weight: Height: Body mass index is 36.05 kg/m??. Physical Examination General: no acute distress Skin: full body skin exam was conducted and was normal with the following exceptions: ?? Morbilliform eruption noted on neck, chest, bilateral upper arms, thighs ?? No LAD appreciated on exam ?? No facial edema, erythema appreciated See pictures in media tab DATA REVIEW MEDICATIONS FOR CURRENT ENCOUNTER: *Hold/Avoid warfarin (Coumadin) tablet, Other, 0800 and 2000 0.9% NaCl injection 10-40 mL, Intracatheter, q8h 0.9% NaCl injection 3 mL, Intracatheter, q8h acetaminophen (Tylenol) tablet 650 mg, Enteral Tube, q6h doxycycline monohydrate capsule 100 mg, Enteral Tube, q12h enoxaparin (Lovenox) injection 100 mg, Subcutaneous, q12h guaiFENesin (Robitussin) solution 10 mL, Enteral Tube, q12h loratadine (Claritin) tablet 10 mg, Enteral Tube, QDAY meropenem (Merrem) 2,000 mg in 0.9% NaCl IV 140 mL IVPB, Intravenous, q8h metoprolol tartrate IR (Lopressor) tablet 25 mg, Enteral Tube, q12h perflutren lipid microsphere (Definity) injection 0.5 mL, Intravenous, intra- Procedure multiple polyethylene glycol 3350 (Miralax) packet 17 g, Enteral Tube, BID senna-docusate (Senokot-S) tablet 2 tablet, Enteral Tube, QDAY sodium - potassium phosphates (K Phos Neutral) tablet 1 tablet, Enteral Tube, BID tamsulosin (Flomax) capsule 0.4 mg, Enteral Tube, QDAY triamcinolone acetonide (Kenalog) 0.1 % ointment, Topical, BID verapamil (Isoptin) tablet 40 mg, Enteral Tube, q8h vitamin D3 (Cholecalciferol) 25 MCG (1000 UNITS) tablet 2,000 Units, Enteral Tube, QDAY [COMPLETED] magnesium sulfate 2 g in 50 mL bolus, Intravenous, Once [COMPLETED] pantoprazole (Protonix) injection 40 mg, Intravenous, QDAY [COMPLETED] potassium chloride (Klor-Con) packet 40 mEq, Enteral Tube, Once [COMPLETED] potassium chloride 40 mEq in 270 mL bolus, Intravenous, Once [COMPLETED] warfarin (Coumadin) tablet 5 mg, Enteral Tube, once warfarin [] gadobutrol (Gadavist) injection, Intravenous, Contrast - Once [] iopamidol (Isovue 370) 76 % contrast, Intravenous, Contrast - Once [START ON 11/13/2022] lansoprazole (Prevacid) suspension 30 mg, Enteral Tube, QDAY BEFORE BREAKFAST Labs: Recent Labs Component Name 11/12/22 0532 11/11/22 1703 11/10/22 2338 WBC 4.8 5.0 7.1 HGB 9.4* 9.9* 9.5* HCT 30.2* 31.9* 29.7* PLTCOUNT 333 332 297 Recent Labs Component Name 11/12/22 0532 06/15/22 0757 12/09/18 0812 SODIUM - - 138 POTASSIUM 3.3* - 3.8 CHLORIDE - - 102 CO2 21* - 24 BUN 13 - 10 CREATININE 0.59 - 0.82 GLUCOSE 120* - 120* CALCIUM 7.8* - 9.4 ALBUMIN - - 4.5 ALKPHOS 75 - 56 ALT 266* - 17 AST 220* - 18 TBIL - - 0.3 TPROT - - 8.4* EGFR >90 - >60 ANIONGAP 13 - 12 - = values in this interval not displayed. Pertinent Labs: ALT 266 AST 220 Cr 0.59 Eosinophils 6.1% of differential, however <10% Mycoplasma, chlamydia negative Cultures: Blood cultures, urine cultures negative to date. Assessment Consuelo Darby is a 42 year old female with history of HTN, GERD, migraine who presented with right MCA stroke . Dermatology was consulted for 2 day history of spreading rash. Plan 1. 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 We favor the diagnosis to be exanthematous drug eruption. Exanthematous drug eruptions are the most common of all medication-induced drug rashes. Onset is usually within 7-10 days of exposure to the culprit drug, and the eruption may occur even if the offending medication has already been discontinued. Commonly implicated medications include aminopenicillins, sulfonamides, cephalosporins, aromatic anticonvulsants, allopurinol, and antiretrovirals (abacavir and nevirapine), among others. Among the patient's medications that are known to cause exanthematous drug eruption, per [employer] are cefepime, doxycycline, vancomycin, ceftriaxone. Of these, the most commonly reported is cefepime, which according to Cristiana's has a 1.8% chance of developing an exanthematous eruption. The others have been reported, but prevalence is not described by Cristiana. DRESS was considered in the differential diagnosis, however REGISCAR score is 0, making DRESS unlikely. Fever etiology favored to be infectious per primary team. In this patient, the offending medication is most culprit is cefepime which was started on November 05. PLAN: - Discussed with patient and primary team that morbilliform drug reactions are non-life threateningand are not considered absolute contraindications to future treatment with cefepime - Per chart review, cefepime has been discontinued and is planned to be replaced with meropenem - Consider daily CBC with diff to and CMP if DRESS is on differential - triamcinolone 0.1% ointment BID to affected areas - Recommend TSH monitoring in addition to LFTs and Cr to assess end organ function - recommend urine eosinophil measurement Case was discussed with dermatology attending Dr. Lindsay, who agrees with the above A/P. Thank you for this consult. Dermatology will continue to follow. Tim Rios MD [facility] Dermatology Resident, PGY-2 Associated attestation - Jovany Lindsay MD - 11/15/2022 9:43 PM CDT Attending Physician Supervisory Note I have examined the patient's photo with the resident and I agree with the findings and plan of care as documented by the resident. Date of Service : 11/12/2022 MD Phillip Chaudhry Department of Dermatology [facility] * Emir Rooney PA-C - 11/10/2022 12:47 PM CDTAssociated Order(s): IP CONSULT TO INTERVENTIONAL RADIOLOGY Vascular & Interventional Radiology New Inpatient Consult Patient: Consuelo Darby Age: [age] year old Date of : 1980 Date of Admission: 10/19/2022 Date: 11/10/2022 Subjective: Referring physician: Dr Ojeda Reason for consult: abscess aspiration/drain placement HPI: 42 year old female with medical hx of obesity, GERD, HTN who previously presented to [facility] w/ complaints of acute onset of left sided weakness and dysarthria earlier this month. Pt found to have stroke s/p TNK and MT. Hospital course c/b development of cerebral edema w/ midline shift requiring he micraniectomy. SARAH performed demonstrated aortic valve vegetations. Previously started on abx for endocarditis. Pt has previously had GI PEG placed on 11/01. Fever yesterday so repeat CT ordered which demonstrated a small ~2 cm gas and fluid collection on inferior aspect of gastrostomy tube insertion site and stomach. VIR consulted for drainage of collection. Past Medical History: Diagnosis Date ??? Abdominal [...] N/A; ESOPHAGOGASTRODUODENOSCOPY (EGD) DIAGNOSTIC with PEG Placement Allergies Allergen Reactions ??? 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 Smoking status: Former Packs/day: 0.50 Types: Cigarettes Quit date: 2015 Years since quittin.6 ??? Smokeless tobacco: Never Vaping Use ??? Vaping Use: Never used Substance Use Topics ??? Alcohol use: No Alcohol/week: 0.0 - 1.7 standard drinks of alcohol Comment: Occasional Family History Problem Relation Name Age of Onset ??? Cancer Maternal Grandfather Lung ??? Diabetes Maternal Grandfather ??? Diabetes Maternal Grandmother ??? Hypertension Mother ??? Thyroid Disease Mother Pertinent aspects of the patient's past medical, surgical, family, and social history are mentionedin the HPI above. Remaining PSFH was also reviewed and is not pertinent to the presenting problem. ROS: Limited ROS performed Medications: Scheduled: ??? 0.9% NaCl 10-40 mL Intracatheter q8h ??? 0.9% NaCl 3 mL Intracatheter q8h ??? acetaminophen 650 mg Enteral Tube q6h ??? atorvastatin 80 mg Enteral Tube AT BEDTIME ??? cefepime 2 g Intravenous q8h ??? doxycycline monohydrate 100 mg Enteral Tube q12h ??? enoxaparin 1 mg/kg Subcutaneous q12h ??? gadobutrol Intravenous Contrast - Once ??? guaiFENesin 10 mL Enteral Tube q12h ??? iopamidol Intravenous Contrast - Once ??? lansoprazole 30 mg Enteral Tube QDAY BEFORE BREAKFAST ??? loratadine 10 mg Enteral Tube QDAY ??? metoprolol tartrate IR 25 mg Enteral Tube q12h ??? metroNIDAZOLE 500 mg Intravenous q8h ??? perflutren lipid microsphere 0.5 mL Intravenous intra-Procedure multiple ??? polyethylene glycol 3350 17 g Enteral Tube BID ??? senna-docusate 2 tablet Enteral Tube QDAY ??? tamsulosin 0.4 mg Enteral Tube QDAY ??? vancomycin 1,500 mg Intravenous q8h ??? vancomycin (VANCOCIN) IV dose per pharmacy Does not apply DIRECTED ??? verapamil 40 mg Enteral Tube q8h ??? Vitamin D3 (cholecalciferol) 2,000 Units Enteral Tube QDAY ??? warfarin Other QDay 1700 ??? warfarin 6 mg Enteral Tube once warfarin PRN: ??? 0.9% NaCl ??? SALINE LOCK, INSERT AND MAINTAIN AND 0.9% NaCl AND 0.9% NaCl ??? bisacodyl ??? diphenhydrAMINE-zinc acetate ??? oxyCODONE (immediate release) Infusions: Objective: Physical examination: BP 129/51 Pulse (!) 110 Temp (!) 100.3 ??F (37.9 ??C) (Axillary) Resp 17 Ht 1.626 m (5' 4 ) Wt 95.3 kg (210 lb) SpO2 98% Estimated body mass index is 36.05 kg/m?? as calculated from the following: Height as of this encounter: 1.626 m (5' 4 ). Weight as of this encounter: 95.3 kg (210 lb). General: NAD Eyes: anicteric, no lid lag ENT: atraumatic, MMM Neck: supple, trachea midline Lungs: normal respiratory effort, no accessory muscle use Cardiovascular: Regular rate Abdomen: soft, nontender, nondistended Psychiatric: Awake, alert Laboratory findings: Recent Labs Component Name 11/10/2222311/08/226 11/07/22 2234 10/27/229 10/27/22 0054 10/23/22 0129 10/22/22 0153 WBC 3.6 5.2 4.7 - 19.5* - - HGB 9.4* 10.4* 9.2* - 8.0* - - HCT 29.4* 33.1* 29.5* - 24.6* - - PLT - - - - - - 199 PLTCOUNT 302 360 325 - 519* - - PLATELET - - - - Occasional* - - - = values in this interval not displayed. Recent Labs Component Name 11/10/2222211/09/22 0237 11/08/22 0254 INR 1.8 1.6 1.6 Recent Labs Component Name 11/10/2222211/08/226 11/07/22 2234 NA 136 141 141 GLUCOSE 120* 107 107 CREATININE 0.52* 0.45* 0.53* EGFR >90 >90 >90 Recent Labs Component Name 11/09/22 0654 10/19/22 0824 06/15/22 0757 ALB 2.6* 3.5 3.6 TBILI 0.3 0.1* 0.1* ALT 77* 16 9 AST 67* 19 17 ALKPHOS 73 52 44 Imaging: Relevant imaging studies were personally reviewed by myself and the IR attending, Dr Rain. MRI BRAIN WWO CONTRAST Result Date: 11/10/2022 IMPRESSION: 1. Redemonstration of postsurgical changes from right decompressive hemicraniectomy andevolving large volume right MCA territory infarct as described above. Mild interval increase in thecaliber of lateral and third ventricles could be secondary to decreased mass effect, less likely hyd rocephalus, continued attention recommended on follow-up. 2. Interval [...] the extra-axial fluid collection overlying the craniectomy sitecould be secondary to evolving blood products/postsurgical changes versus secondary to superimposedinfection, clinical correlation is recommended. These findings were discussed with patient's care provider, Dr. Tucker, stroke team, by on 11/10/2022 11:59 AM with read back verification. > Interpreting Provider: Oriana Suarez MD on 11/10/2022 12:[address] ABDOMEN PELVIS W CONTRAST Result Date: 11/10/2022 IMPRESSION: 1. Progressive soft tissue stranding with gas in the right inguinal region with an inflammatory mass encasing the right femoral vessels with mild narrowing of the femoral artery and moderate narrowing of the femoral vein. This could represent a postsurgical hematoma. Recommend correlation with symptoms and signs of superinfection. 2. Interval placement of a gastrostomy tube with a smal l gas and fluid collection along the inferior aspect of the gastrostomy tube insertion site and stomach, measuring 2.2 cm. Findings communicated with Dr. Goyal at 2005 hours on 11/09/2022 > Interpreting Provider: Pepe Gonzalez MD on 11/10/2022 12:[address] ANGIO CHEST PULM EMBOLISM Result Date: 11/07/2022 Impression: 1.No evidence of acute pulmonary embolism. There is no radiographic evidence of right heart strain. 2.No other acute process within the chest. > Dictated by Tim Major MD (resident services coordinator). IAlexx have personally reviewed and interpreted this examination/study. > Interpreting Provider: Alexx Lopez on 11/07/2022 10:30 PM XR ABDOMEN KUB PORTABLE Result Date: 11/06/2022 IMPRESSION: Non-obstructive bowel gas pattern. Report dictated by Mc Castro MD, (resident services coordinator). Pepe Ornelas MD have personally reviewed and interpreted this examination/study. > Interpreting Provider: Pepe Gonzalez MD on 11/06/2022 10:[address] HEAD WO CONTRAST Result Date: 11/05/2022 IMPRESSION: 1. Redemonstration of post surgical changes from decompressive hemicraniectomy and evolving large right MCA territory subacute infarct. Interval increased linear hyperdense foci along thecortex of right frontal and parietal lobes could be secondary to evolving cortical laminar necrosisversus developing petechial hemorrhages. Continued attention recommended on short-term follow-up. However no hematoma noted. No evidence of midline shift. These findings were discussed with patient'scare provider, Dr. Roth with neurology, by on 11/05/2022 5:46 PM with read back verification. > Interpreting Provider: Oriana Suarez MD on 11/05/2022 5:48 PM Recommendations: 42 year old female with above medical/surgical hx (see above HPI) referred to VIR today for evaluation of aspiration vs drain placement of 2 cm fluid and gas collection on inferior aspect of gastrostomy tube insertion site and stomach seen on CT imaging performed yesterday, 11/09. Pertinent labs and relevant imaging studies were reviewed. Pt and imaging thoroughly reviewed with Dr. Rain. Collection too small at this time for VIR to target for aspiration or drain placement. The IR attending, Dr. Rain, is in agreement with the above recommendations. The case was discussed with Dr Ojeda from the referring service on 11/10/2022 at ~1230. Emir Rooney PA-C Interventional Radiology [phone] Associated attestation - César Rain MD - 11/13/2022 8:52 PM CDT Images from the original note were not included. VASCULAR & INTERVENTIONAL RADIOLOGY FACULTY ATTESTATION NOTE: I have verified the documentation of the Emir Rooney PA-C ,Vascular & Interventional Radiology, including all history, exam, and medical decision- making details. I have personally reviewed thedata to support my medical decision-making as outlined in the residents note including HPI, imagingand labs. I agree with the findings, assessment and plan as documented and arrive independently at the same conclusion. César Rain MD, DABR Medicinal Chemist, [facility]. Vascular and Interventional Radiologist Minimally Invasive Specialist Endovascular interventions for Peripheral Arterial Disease ( PAD) / DVT/ Varicose veins and Pulmonary Embolism Endovascular interventions for Dialysis access Prostate Artery Embolization for BPH in men Uterine Fibroid Embolization for Uterine fibroids in Women For Outpatient/ inpatient appointments : For referrals to VIR: Ambulatory Referral to Interventional Radiology ([id number]) [facility] Coordinator: [phone] [place] Inpatient consults: [id number] Hospital Coordinators : [phone] [facility] Inpatient consults:[phone] For Hospital to Hospital VIR Transfers * Isi Aguirre MD - 11/10/2022 9:57 AM CDTAssociated Order(s): IP CONSULT TO VASCULAR SURGERY Images from the original note were not included. Vascular Surgery Consult History and Physical Patient Name: Consuelo Darby Age/Gender: 42 year old female : 1980 Date: 11/10/2022 Reason for Consult: hematoma HPI: Consuelo Darby is a 42 year old female with a h/o R MCA stroke admitted 10/19 for R femoral access + suction thrombectomy + 8F angioseal closure; hemicraniectomy by NSGY 10/20,??who presented asa consult for occlusion identified on CT scan performed 10/25/22. Vascular surgery consulted for iatr ogenic vascular injury of the external iliac artery s/p R thrombectomy with bovine pericardial patch angioplasty. CT abdomen pelvis was obtained today due to persistent fevers without a source. CT scan was concerning for a hematoma vs. Infection of the right groin, thus vascular was reconsulted. Per family at bedside, the patient has been pointing at her right hip in pain. No leukocytosis. Past Medical History: Diagnosis Date ??? Abdominal [...] N/A; ESOPHAGOGASTRODUODENOSCOPY (EGD) DIAGNOSTIC with PEG Placement Allergies Allergen Reactions ??? 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 amitriptyline (Elavil) 50 MG tablet ??? Cetirizine HCl (ZYRTEC PO) ??? levonorgestrel-ethinyl estradiol (LESSINA-28) 0.1-20 MG-MCG tablet ??? metoprolol tartrate IR (Lopressor) 25 MG tablet ??? omeprazole (PriLOSEC) 20 MG capsule ??? verapamil SR 24hr (Verelan) 120 MG capsule ??? Vitamin D3, cholecalciferol, 50 MCG (2000 UT) tablet Inpatient Medications: Current Facility-Administered Medications Medication ??? 0.9% NaCl injection 10-40 mL ??? 0.9% NaCl injection 10-40 mL ??? 0.9% NaCl injection 3 mL And ??? 0.9% NaCl injection 3 mL ??? acetaminophen (Tylenol) tablet 650 mg ??? atorvastatin (Lipitor) tablet 80 mg ??? bisacodyl (Dulcolax) suppository 10 mg ??? cefepime (Maxipime) 2,000 mg in 0.9% NaCl IV 50 mL IVPB ??? diphenhydrAMINE-zinc acetate (Benadryl Extra Strength) 2-0.1 % cream ??? doxycycline monohydrate capsule 100 mg ??? enoxaparin (Lovenox) injection 100 mg ??? gadobutrol (Gadavist) injection ??? guaiFENesin (Robitussin) solution 10 mL ??? iopamidol (Isovue 370) 76 % contrast ??? lansoprazole (Prevacid) suspension 30 mg ??? loratadine (Claritin) tablet 10 mg ??? metoprolol tartrate IR (Lopressor) tablet 25 mg ??? oxyCODONE (immediate release) (Roxicodone) tablet 5 mg ??? perflutren lipid microsphere (Definity) injection 0.5 mL ??? polyethylene glycol 3350 (Miralax) packet 17 g ??? senna-docusate (Senokot-S) tablet 2 tablet ??? tamsulosin (Flomax) capsule 0.4 mg ??? vancomycin (Vancocin) 1,500 mg in 500 mL NaCl IVPB Premix ??? vancomycin (Vancocin) IV dose per pharmacy ??? verapamil (Isoptin) tablet 40 mg ??? vitamin D3 (Cholecalciferol) 25 MCG (1000 UNITS) tablet 2,000 Units ??? warfarin (Coumadin) dose per pharmacy Social History Tobacco Use ??? Smoking status: Former Packs/day: 0.50 Types: Cigarettes Quit date: 2015 Years since quittin.6 ??? Smokeless tobacco: Never Vaping Use ??? Vaping Use: Never used Substance Use Topics ??? Alcohol use: No Alcohol/week: 0.0 - 1.7 standard drinks of alcohol Comment: Occasional ??? Drug use: No Family History Problem Relation Name Age of Onset ??? Cancer Maternal Grandfather Lung ??? Diabetes Maternal Grandfather ??? Diabetes Maternal Grandmother ??? Hypertension Mother ??? Thyroid Disease Mother Problem List/Present on Admission: Right middle cerebral artery stroke (CMS/HCC) (POA: Unknown) Acute cerebrovascular accident (CVA) due to embolism of right middle cerebral artery (CMS/HCC) (POA: Yes) Nihss score 9 (POA: Yes) Received intravenous tissue plasminogen activator (tPA) in emergency department (POA: Yes) GERD (gastroesophageal reflux disease) (POA: Yes) Hemianopsia (POA: Yes) Weakness (POA: Yes) Left-sided sensory deficit present (POA: Yes) Gaze palsy (POA: Yes) Migraine (POA: Unknown) Hypertension (POA: Unknown) Presence of externally removable percutaneous endoscopic gastrostomy (PEG) tube (CMS/HCC) (POA: Unknown) REVIEW OF SYSTEMS Constitutional: As per HPI Eyes: Negative for visual changes CV: Negative for chest pain Pulm: Negative for dyspnea GI: As per HPI : Negative for dysuria, hematuria MSK: Negative for myalgias, arthralgias Skin: Negative for skin changes Neuro: Negative for weakness Remainder of ROS negative unless documented in HPI PHYSICAL EXAM Vitals: 11/09/22 2035 11/10/22 0503 11/10/22 0854 11/10/22 0933 BP: 121/68 115/52 103/53 Pulse: 107 102 97 95 Resp: 17 Temp: 98.7 ??F (37.1 ??C) (!) 101.2 ??F (38.4 ??C) 97.4 ??F (36.3 ??C) SpO2: 98% 96% 99% Weight: Height: Estimated body mass index is 36.05 kg/m?? as calculated from the following: Height as of this encounter: 1.626 m (5' 4 ). Weight as of this encounter: 95.3 kg (210 lb). Gen: NAD HEENT: AT/NC, EOMI, oropharynx clear CV: RRR Pulm: Nonlabored respirations Abd: Soft, nondistneded, G tube in place without signs of erythema MSK: R groin with incision with overlying glue c/d/i. No palpable hemataoma or fluctuance. No purulent drainage expressed. No signs of skin infection, necrosis, or ischemia. There is some induration under the incision. Neuro: Moving all extremities, Recent Labs: CBC: Recent Labs Component Name 11/10/2222310/23/22 0129 10/22/22 0153 WBC 3.6 - - HGB 9.4* - - HCT 29.4* - - PLT - - 199 - = values in this interval not displayed. BMP: Recent Labs Component Name 11/10/22222 NA 136 CL 105 CO2 24 BUN 13 CREATININE 0.52* Recent Labs Component Name 11/10/2222211/07/22 0305 11/06/22 2312 PT 20.5* - - PTT - - 63.4* INR 1.8 - - - = values in this interval not displayed. Imaging: MRI BRAIN WWO CONTRAST Result Date: 11/10/2022 IMPRESSION: 1. Redemonstration of postsurgical changes from right decompressive hemicraniectomy andevolving large volume right MCA territory infarct as described above. Mild interval increase in thecaliber of lateral and third ventricles could be secondary to decreased mass effect, less likely hyd rocephalus, continued attention recommended on follow-up. 2. Interval [...] the extra-axial fluid collection overlying the craniectomy sitecould be secondary to evolving blood products/postsurgical changes versus secondary to superimposedinfection, clinical correlation is recommended. These findings were discussed with patient's care provider, Dr. Tucker, stroke team, by on 11/10/2022 11:59 AM with read back verification. > Interpreting Provider: Oriana Suarez MD on 11/10/2022 12:[address] ABDOMEN PELVIS W CONTRAST Result Date: 11/10/2022 IMPRESSION: 1. Progressive soft tissue stranding with gas in the right inguinal region with an inflammatory mass encasing the right femoral vessels with mild narrowing of the femoral artery and moderate narrowing of the femoral vein. This could represent a postsurgical hematoma. Recommend correlation with symptoms and signs of superinfection. 2. Interval placement of a gastrostomy tube with a smal l gas and fluid collection along the inferior aspect of the gastrostomy tube insertion site and stomach, measuring 2.2 cm. Findings communicated with Dr. Goyal at 2005 hours on 11/09/2022 > Interpreting Provider: Pepe Gonzalez MD on 11/10/2022 12:[address] ANGIO CHEST PULM EMBOLISM Result Date: 11/07/2022 Impression: 1.No evidence of acute pulmonary embolism. There is no radiographic evidence of right heart strain. 2.No other acute process within the chest. > Dictated by Tim Major MD (resident services coordinator). IAlexx have personally reviewed and interpreted this examination/study. > Interpreting Provider: Alexx Lopez on 11/07/2022 10:30 PM XR ABDOMEN KUB PORTABLE Result Date: 11/06/2022 IMPRESSION: Non-obstructive bowel gas pattern. Report dictated by Mc Castro MD, (resident services coordinator). IPepe MD have personally reviewed and interpreted this examination/study. > Interpreting Provider: Pepe Gonzalez MD on 11/06/2022 10:[address] HEAD WO CONTRAST Result Date: 11/05/2022 IMPRESSION: 1. Redemonstration of post surgical changes from decompressive hemicraniectomy and evolving large right MCA territory subacute infarct. Interval increased linear hyperdense foci along thecortex of right frontal and parietal lobes could be secondary to evolving cortical laminar necrosisversus developing petechial hemorrhages. Continued attention recommended on short-term follow-up. However no hematoma noted. No evidence of midline shift. These findings were discussed with patient'scare provider, Dr. Roth with neurology, by on 11/05/2022 5:46 PM with read back verification. > Interpreting Provider: Oriana Suarez MD on 11/05/2022 5:48 PM Assessment and Plan: Consuelo Darby is a 42 year old female with a h/o R MCA stroke admitted 10/19 for R femoral access+ suction thrombectomy + 8F angioseal closure; hemicraniectomy by NSGY 10/20,??who presented as a consult for occlusion identified on CT scan performed 10/25/22. Vascular surgery initially consulted for iatrogenic vascular injury of the external iliac artery s/p R thrombectomy with bovine pericardialpatch angioplasty. Now re consulted for concerns for right groin hematoma vs. Abscess. - The overlying skin is healthy appearing without signs of infection. On palpation, she isn't tender and no purulent drainage is expressed - Further examination of her CT scan reveal a rim enhancing fluid collection where her G tube lays,may be source of fevers. Will defer to ACS - IV abx - will defer to primary team to further work up fever - No acute vascular surgery intervention Staff: Dr. Obed Aguirre MD General Surgery 11/10/2022 9:58 AM * Sindhu Sam MD - 11/10/2022 9:47 AM CDTAssociated Order(s): IP CONSULT TO GENERAL SURGERY Images from the original note were not included. Acute Care Surgery Consult History and Physical Patient Name: Consuelo Darby Age/Gender: 42 year old female : 1980 Date: 11/10/2022 Reason for Consult: HPI: Consuelo Darby is a 42 year old female who presented on 10/19/2022??as code stroke due to acute onset left sided weakness, left sided sensory deficits, and dysarthria. ??Found to have right MCAocculusion. She was taken to the OR for right decompressive hemicraniectomy on 10/20/2022. Patient also underwent to throbectomy on 10/30. She was noted to have high grade fevers on 11/03 and now on vanc, cefepime, and doxy. ACS consulted for 2cm rim-enhancing collection along inferior aspect of gastrostomy tube with smalllocule of gas seen on CT, concerning for possible gastric erosion by gastrostomy tube bumper. On exam today, patient has limited verbal responses. She and family at bedside report no BMs in the past 3-4 days, but she is passing flatus. She denies abdominal pain. PEG is in place with no surrounding signs of infection. PMH: HTN, CVA PSH: lap anselmo,Csection x2 Medications: warfarin, Lovenox, see below for complete list. Allergies: latex SocHx: former smoker, occasional alcohol use, no other drug use FMH: non-contributory Past Medical History: Diagnosis Date ??? Abdominal [...] N/A; ESOPHAGOGASTRODUODENOSCOPY (EGD) DIAGNOSTIC with PEG Placement Allergies Allergen Reactions ??? 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 amitriptyline (Elavil) 50 MG tablet ??? Cetirizine HCl (ZYRTEC PO) ??? levonorgestrel-ethinyl estradiol (LESSINA-28) 0.1-20 MG-MCG tablet ??? metoprolol tartrate IR (Lopressor) 25 MG tablet ??? omeprazole (PriLOSEC) 20 MG capsule ??? verapamil SR 24hr (Verelan) 120 MG capsule ??? Vitamin D3, cholecalciferol, 50 MCG (1999 UT) tablet Inpatient Medications: Current Facility-Administered Medications Medication ??? 0.9% NaCl injection 10-40 mL ??? 0.9% NaCl injection 10-40 mL ??? 0.9% NaCl injection 3 mL And ??? 0.9% NaCl injection 3 mL ??? acetaminophen (Tylenol) tablet 650 mg ??? atorvastatin (Lipitor) tablet 80 mg ??? bisacodyl (Dulcolax) suppository 10 mg ??? cefepime (Maxipime) 2,000 mg in 0.9% NaCl IV 50 mL IVPB ??? diphenhydrAMINE-zinc acetate (Benadryl Extra Strength) 2-0.1 % cream ??? doxycycline monohydrate capsule 100 mg ??? enoxaparin (Lovenox) injection 100 mg ??? gadobutrol (Gadavist) injection ??? guaiFENesin (Robitussin) solution 10 mL ??? iopamidol (Isovue 370) 76 % contrast ??? lansoprazole (Prevacid) suspension 30 mg ??? loratadine (Claritin) tablet 10 mg ??? metoprolol tartrate IR (Lopressor) tablet 25 mg ??? oxyCODONE (immediate release) (Roxicodone) tablet 5 mg ??? perflutren lipid microsphere (Definity) injection 0.5 mL ??? polyethylene glycol 3350 (Miralax) packet 17 g ??? senna-docusate (Senokot-S) tablet 2 tablet ??? tamsulosin (Flomax) capsule 0.4 mg ??? vancomycin (Vancocin) 1,500 mg in 500 mL NaCl IVPB Premix ??? vancomycin (Vancocin) IV dose per pharmacy ??? verapamil (Isoptin) tablet 40 mg ??? vitamin D3 (Cholecalciferol) 25 MCG (1000 UNITS) tablet 2,000 Units ??? warfarin (Coumadin) dose per pharmacy Social History Tobacco Use ??? Smoking status: Former Packs/day: 0.50 Types: Cigarettes Quit date: 2014 Years since quittin.6 ??? Smokeless tobacco: Never Vaping Use ??? Vaping Use: Never used Substance Use Topics ??? Alcohol use: No Alcohol/week: 0.0 - 1.7 standard drinks of alcohol Comment: Occasional ??? Drug use: No Family History Problem Relation Name Age of Onset ??? Cancer Maternal Grandfather Lung ??? Diabetes Maternal Grandfather ??? Diabetes Maternal Grandmother ??? Hypertension Mother ??? Thyroid Disease Mother Problem List/Present on Admission: Right middle cerebral artery stroke (CMS/HCC) (POA: Unknown) Acute cerebrovascular accident (CVA) due to embolism of right middle cerebral artery (CMS/HCC) (POA: Yes) Nihss score 9 (POA: Yes) Received intravenous tissue plasminogen activator (tPA) in emergency department (POA: Yes) GERD (gastroesophageal reflux disease) (POA: Yes) Hemianopsia (POA: Yes) Weakness (POA: Yes) Left-sided sensory deficit present (POA: Yes) Gaze palsy (POA: Yes) Migraine (POA: Unknown) Hypertension (POA: Unknown) Presence of externally removable percutaneous endoscopic gastrostomy (PEG) tube (CMS/HCC) (POA: Unknown) REVIEW OF SYSTEMS Constitutional: As per HPI Eyes: Negative for visual changes CV: Negative for chest pain Pulm: Negative for dyspnea GI: As per HPI : Negative for dysuria, hematuria MSK: Negative for myalgias, arthralgias Skin: Negative for skin changes Neuro: Negative for weakness Remainder of ROS negative unless documented in HPI PHYSICAL EXAM Vitals: 11/09/22 2035 11/10/22 0503 11/10/22 0854 11/10/22 0933 BP: 121/68 115/52 103/53 Pulse: 107 102 97 95 Resp: 17 Temp: 98.7 ??F (37.1 ??C) (!) 101.2 ??F (38.4 ??C) 97.4 ??F (36.3 ??C) SpO2: 98% 96% 99% Weight: Height: Estimated body mass index is 36.05 kg/m?? as calculated from the following: Height as of this encounter: 1.626 m (5' 4 ). Weight as of this encounter: 95.3 kg (210 lb). Gen: NAD, limited verbal responses HEENT: s/p hemicraniectomy CV: RRR Pulm: Nonlabored respirations Abd: Soft, NT, ND, PEG tube in place with no surrounding erythema or purulence MSK: WWP, no c/c/e Neuro: Limited verbal response Psych: Appropriate mood and affect Recent Labs: CBC: Recent Labs Component Name 11/10/2222310/23/22 0129 10/22/22 0153 WBC 3.6 - - HGB 9.4* - - HCT 29.4* - - PLT - - 199 - = values in this interval not displayed. BMP: Recent Labs Component Name 11/10/22222 NA 136 CL 105 CO2 24 BUN 13 CREATININE 0.52* Recent Labs Component Name 11/10/2222211/07/22 0305 11/06/22 2312 PT 20.5* - - PTT - - 63.4* INR 1.8 - - - = values in this interval not displayed. Imaging: MRI BRAIN WWO CONTRAST Result Date: 11/10/2022 IMPRESSION: 1. Redemonstration of postsurgical changes from right decompressive hemicraniectomy andevolving large volume right MCA territory infarct as described above. Mild interval increase in thecaliber of lateral and third ventricles could be secondary to decreased mass effect, less likely hyd rocephalus, continued attention recommended on follow-up. 2. Interval [...] the extra-axial fluid collection overlying the craniectomy sitecould be secondary to evolving blood products/postsurgical changes versus secondary to superimposedinfection, clinical correlation is recommended. These findings were discussed with patient's care provider, Dr. Tucker, stroke team, by on 11/10/2022 11:59 AM with read back verification. > Interpreting Provider: Oriana Suarez MD on 11/10/2022 12:[address] ABDOMEN PELVIS W CONTRAST Result Date: 11/10/2022 IMPRESSION: 1. Progressive soft tissue stranding with gas in the right inguinal region with an inflammatory mass encasing the right femoral vessels with mild narrowing of the femoral artery and moderate narrowing of the femoral vein. This could represent a postsurgical hematoma. Recommend correlation with symptoms and signs of superinfection. 2. Interval placement of a gastrostomy tube with a smal l gas and fluid collection along the inferior aspect of the gastrostomy tube insertion site and stomach, measuring 2.2 cm. Findings communicated with Dr. Goyal at 2005 hours on 11/09/2022 > Interpreting Provider: Pepe Gonzalez MD on 11/10/2022 12:[address] ANGIO CHEST PULM EMBOLISM Result Date: 11/07/2022 Impression: 1.No evidence of acute pulmonary embolism. There is no radiographic evidence of right heart strain. 2.No other acute process within the chest. > Dictated by Tim Major MD (resident services coordinator). I, Alexx Lopez have personally reviewed and interpreted this examination/study. > Interpreting Provider: Alexx Lopez on 11/07/2022 10:30 PM Assessment and Plan: Consuelo Darby is a 42 year old female who presented on 10/19/2022??as code stroke due to acute onset left sided weakness, left sided sensory deficits, and dysarthria. ??Found to have right MCA occulusion. She was taken to the OR for right decompressive hemicraniectomy on 10/20/2022. Patient also underwent to throbectomy on 10/30. She was noted to have high grade fevers on 11/03 and now on vanc, cefepime, and doxy. ACS consulted 11/10 for 2cm rim-enhancing collection along inferior aspect of gastrostomy tube with small locule of gas seen on CT, concerning for possible gastric erosion by gastrostomy tube bumper. - OR as level 3 for esophogastroduodenoscopy, possible exploratory laparotomy for possible gastric erosion by gastrostomy tube bumper. - Consent signed and in chart - NPO, holding tube feeds - Please hold lovenox and warfarin tonight in anticipation for surgery - INR 1.8, Warfarin reversal. Sindhu Sam MD Acute Care Surgery 11/10/22 Associated attestation - Jacques Novoa DO - 11/10/2022 7:06 PM CDT I examined patient with resident team on the date of service. I agree with above note and plan. Jacques Novoa DO * Salinas Chapin MD - 11/09/2022 10:01 AM CDTAssociated Order(s): IP CONSULT TO UROLOGY Images from the original note were not included. [facility] of Urologic Surgery New Consult Note Attending: Mariangel Sifuentes MD Patient Name: Consuelo Darby Age/Gender: 42 year old female : 1980 Date: 11/09/2022 Reason for Consult: Urinary Retention HPI: Consuelo Darby is a 42 year old female with hx of HTN, who presented to [facility] on 10/19/22 due to L sided weakness and dysarthria. She was found to have right sided MA stroke and underwent revascularization initially. Repeat CTH showed edema, and she underwent hemicraniectomy on 10/20/22. Furtherworkup with SARAH showed aortic cusp vegetations. During her stay, she developed urinary retention and has had Puentes catheter in place. Clamp trial was attempted yesterday, but no void trial performed.Pt did not have urge to void and Urology was consulted for further recommendations. Patient is nonverbal at this time. Febrile to 102.6, otherwise VSS on RA. WBC 5.2, Hgb 10.4. Cr 0.45. Has had good urine output. After clamp trial yesterday, patient was clamped for about 4 hours with draining of about 1L afterwards. No urinary issues prior to admission. PMH: HTN Medications: Allergies: lates PSH: hx of cholecystectomy, SocHx: former smoker FMH: noncontributory Past Medical History: Diagnosis Date ??? Abdominal pain, right upper quadrant ??? GERD (gastroesophageal reflux disease) ??? History of hypertension gestational hypertension No current facility-administered medications on file prior to encounter. Current Outpatient Medications on File Prior to Encounter Medication Sig Dispense Refill ??? amitriptyline (Elavil) 50 MG tablet Take 2 (two) tablets by mouth at bedtime ??? Cetirizine HCl (ZYRTEC PO) Take 10 mg by mouth once daily ??? levonorgestrel-ethinyl estradiol (LESSINA-28) 0.1-20 MG-MCG tablet TAKE 1 TABLET BY MOUTH EVERYDAY FOR CONTROL Reasons: Control Treatment 84 tablet 4 ??? metoprolol tartrate IR (Lopressor) 25 MG tablet Take 1 (one) tablet by mouth 2 times daily ??? omeprazole (PriLOSEC) 20 MG capsule Take 20 mg by mouth daily before breakfast ??? verapamil SR 24hr (Verelan) 120 MG capsule Take 1 (one) capsule by mouth at bedtime ??? Vitamin D3, cholecalciferol, 50 MCG (2000 UT) tablet Take 2,000 Units by mouth once daily Allergies Allergen Reactions ??? 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 [...] N/A; ESOPHAGOGASTRODUODENOSCOPY (EGD) DIAGNOSTIC with PEG Placement Social History Socioeconomic History ??? Marital status: Occupational History ??? 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 Smoking status: Former Packs/day: 0.50 Types: Cigarettes Quit date: 2015 Years since quittin.6 ??? Smokeless tobacco: Never Vaping Use ??? Vaping Use: Never used Substance and Sexual Activity ??? Alcohol use: No Alcohol/week: 0.0 - 1.7 standard drinks of alcohol Comment: Occasional ??? Drug use: No ??? Sexual activity: Yes Partners: Male control/protection: Pill Other Topics Concern ??? Special Diet No Family History Problem Relation Name Age of Onset ??? Cancer Maternal Grandfather Lung ??? Diabetes Maternal Grandfather ??? Diabetes Maternal Grandmother ??? Hypertension Mother ??? Thyroid Disease Mother REVIEW OF SYSTEMS Constitutional: Negative for fatigue, fevers, chills, weight change Eyes: Negative for visual changes CV: Negative for chest pain Pulm: Negative for dyspnea GI: Negative for abdominal pain, nausea, vomiting, diarrhea : concern for urinary retention MSK: Negative for myalgias, arthralgias Skin: Negative for skin changes Neuro: Negative for weakness Remainder of ROS negative unless documented in HPI PHYSICAL EXAM Vitals: 11/08/22 2030 11/08/22 2332 11/09/22 0442 11/09/22 0739 BP: 122/68 134/71 124/84 Pulse: 98 99 106 107 Resp: 18 Temp: 98.6 ??F (37 ??C) (!) 100.6 ??F (38.1 ??C) (!) 102.1 ??F (38.9 ??C) (!) 102.6 ??F (39.2 ??C) SpO2: 94% 98% 100% 95% Weight: Height: Estimated body mass index is 36.05 kg/m?? as calculated from the following: Height as of this encounter: 1.626 m (5' 4 ). Weight as of this encounter: 95.3 kg (210 lb). Gen: nonverbal, no acute distress HEENT: right half hair shaven CV: RRR Pulm: Nonlabored respirations Abd: Soft, NT/ND : Puentes draining clear yellow urine MSK: WWP, no cyanosis or edema Skin: Normal color and turgor, no lesions noted Neuro: Moving all extremities spontaneously, no focal deficits Psych: Appropriate mood and affect Recent Labs: CBC: Recent Labs Component Name 11/08/22 2346 10/23/22 0129 10/22/22 0153 WBC 5.2 - - HGB 10.4* - - HCT 33.1* - - PLT - - 199 - = values in this interval not displayed. BMP: Recent Labs Component Name 11/08/22 2346 NA 141 CL 107 CO2 24 BUN 9 CREATININE 0.45* Recent Labs Component Name 11/09/22 0237 11/07/22 0305 11/06/22 2312 PT 18.9* - - PTT - - 63.4* INR 1.6 - - - = values in this interval not displayed. Imaging: CTAP w Contrast ordered Microbiology: UCx negative 11/05/22 Pathology: none Assessment and Plan: Consuelo Darby is a 42 year old female who presented with right MCA stroke, with puentes in place and likely urinary retention. Puentes last replaced 11/04. - recommend void trial tomorrow as prior clamp trial is not good indication of ability to void spontaneously. Please having nursing remove Puentes tomorrow at 0400. Nursing communication placed - if unable to void and bladder scan after 6 hours is >400cc, please have nursing replace Puentes - recommend continuing IV abx (Vanc/Cefe/Doxy) and workup of fever. - If fails, plan to have outpatient void trial in 1 month due to significant neuro involvement withstroke. - please page with any questions - rest of care per primary Discussed with Dr. Bear Chapin MD PGY3 11/09/22 10:01 AM * Maru Mcduffie RN - 11/02/2022 10:00 AM CDTAssociated Order(s): IP CONSULT TO CASE MANAGEMENT Consult acknowledged. Stroke assessment completed 10/19. Maru Mcduffie RN [phone] Care Coordination Nurse Salon Coordinator * StanJanethharpalCass, MIRROR SILVERER-LEAD MANUFACTURING TECHNICIAN - 10/30/2022 8:17 AM CDTAssociated Order(s): IP CONSULT TO GASTROENTEROLOGY . GASTROENTEROLOGY CONSULT Consuelo Darby Age: [age] year old Date of : 1980 Date of Admission: 10/19/2022 Reason for Consult: PEG tube placement Requesting Team: Neurologist Subjective: History of Present Illness: Consuelo Darby is a 41 year old female with a PMH significant for GERD, HTN, Migraine, obesity, procedural/surgical history significant for c/section (03/01/2016), lap cholecystomy (02/22/2012) andcolonoscopy with polypectomy (08/25/2021) who presented on 10/19/2022 with acute left sided sensoryand motor deficits, dysarthria, left gaze palsy and left hemianopsia subsequently found to have an acute malignant right MCA infarction s/p tenecteplase and thrombectomy (10/19/2022), right sided vxlatz-bgqpea-atzabnoz decompressive sonya-craniectomy for refractory ICP (10/20/2022) and pending rightfemoral thrombectomy scheduled for (10/30/2022). 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 Future discharge planning includes PEG tube placement for which we were consulted. Last colonoscopy 08/25/2021. Aspirin: no NSAIDs no Anticoagulants: yes Tobacco: history of 1/2 ppd smoker, quit approximately 8 years prior. EtOH: no illicit drugs no Denies history of GI or liver disease, peptic ulcer disease, previous H. Pylori infection, or history of major GI bleeding. Denies confusion, abdominal distention, or LE edema. No personal or family history of liver diseaseincluding cirrhosis, or hepatitis. Denies history of IV drug use, blood transfusions, use of herbalproducts, or alcohol use. In the ER, vital signs: b/p 140/78, Pulse 107, Temp 98.4F, oxygen sat on RA 98%. Labs in ED showed Hgb 14.4, INR 0.9, platelet count 342, BUN 13. Past Medical History: Patient Active Problem List: GERD (gastroesophageal reflux disease) Hemianopsia Weakness Left-sided sensory deficit present Gaze palsy Acute cerebrovascular accident (CVA) due to embolism of right middle cerebral artery (CMS/HCC) Nihss score 9 Received intravenous tissue plasminogen activator (tPA) in emergency department Migraine Hypertension Right middle cerebral artery stroke (CMS/HCC) Past Medical History: Diagnosis Date ??? Abdominal [...] DECOMPRESSIVE HEMICRANIECTOMY, POSS ICP MONITOR, POSS EVD Medications: Medications Prior to Admission Medication Sig Dispense Refill ??? amitriptyline (Elavil) 50 MG tablet Take 2 (two) tablets by mouth at bedtime ??? Cetirizine HCl (ZYRTEC PO) Take 10 mg by mouth once daily ??? levonorgestrel-ethinyl estradiol (LESSINA-28) 0.1-20 MG-MCG tablet TAKE 1 TABLET BY MOUTH EVERYDAY FOR CONTROL Reasons: Control Treatment 84 tablet 4 ??? metoprolol tartrate IR (Lopressor) 25 MG tablet Take 1 (one) tablet by mouth 2 times daily ??? omeprazole (PriLOSEC) 20 MG capsule Take 20 mg by mouth daily before breakfast ??? verapamil SR 24hr (Verelan) 120 MG capsule Take 1 (one) capsule by mouth at bedtime ??? Vitamin D3, cholecalciferol, 50 MCG (1999) tablet Take 2,000 Units by mouth once daily Current Facility-Administered Medications Medication ??? 0.9% NaCl infusion rate and volume ??? 0.9% NaCl injection 3 mL And ??? 0.9% NaCl injection 1-10 mL ??? 0.9% NaCl injection 3 mL And ??? 0.9% NaCl injection 3 mL ??? acetaminophen (Tylenol) tablet 500 mg ??? atorvastatin (Lipitor) tablet 80 mg ??? cefTRIAXone (Rocephin) 2,000 mg in 0.9% NaCl IV 50 mL IVPB ??? dextrose 5 % and lactated ringers infusion ??? diphenhydrAMINE-zinc acetate (Benadryl Extra Strength) 2-0.1 % cream ??? guaiFENesin (Robitussin) solution 10 mL ??? heparin 100 units/mL in dextrose 5 % infusion ??? hydrocortisone (Hytone) 2.5 % ointment ??? lansoprazole (Prevacid) suspension 30 mg ??? loratadine (Claritin) tablet 10 mg ??? metoprolol tartrate IR (Lopressor) tablet 25 mg ??? polyethylene glycol 3350 (Miralax) packet 17 g ??? senna-docusate (Senokot-S) tablet 1 tablet ??? tamsulosin (Flomax) capsule 0.4 mg ??? vancomycin (Vancocin) 1,750 mg in 535 mL IVPB ??? vancomycin (Vancocin) IV dose per pharmacy ??? verapamil (Isoptin) tablet 40 mg ??? vitamin D3 (Cholecalciferol) 25 MCG (1000 UNITS) tablet 2,000 Units Allergies: Allergies Allergen Reactions ??? 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 Smoking status: Former Packs/day: 0.50 Types: Cigarettes Quit date: 2014 Years since quittin.6 ??? Smokeless tobacco: Never Vaping Use ??? Vaping Use: Never used Substance Use Topics ??? Alcohol use: No Alcohol/week: 0.0 - 1.7 standard drinks of alcohol Comment: Occasional Family History: family history includes Cancer in her maternal grandfather; Diabetes in her maternal grandfather and maternal grandmother; Hypertension in her mother; Thyroid Disease in her mother. Review of Systems: Extubated, nonverbal. Objective Physical Exam: BP 129/61 Pulse 78 Temp 98.4 ??F (36.9 ??C) (Axillary) Resp 17 Ht 1.626 m (5' 4 ) Wt 95.3kg (210 lb) SpO2 99% Wt Readings from Last 5 Encounters: 10/20/22 95.3 kg (210 lb) 10/23/22 95.3 kg (210 lb) 02/08/22 93.3 kg (205 lb 11.2 oz) 08/25/21 84.8 kg (187 lb) 01/10/21 80 kg (176 lb 6.4 oz) General:no acute distress, did not track with eyes nor follow verbal commands, Head: right sided head surgical sites intact. Eyes: spontaneously open,does not track, pupils reactive bilaterally. Mouth/Throat: oropharynx clear with no lesions, dry mucous membranes Neck: no jugular venous distension, no cervical lympadenopathy CV: regular rate and rhythm, no murmurs appreciated Resp: good bilateral air entry, no wheezes, no crackles, poor air flow lower lobes bilaterally Abd: normoactive BS, soft, nontender, non distended Extremities: no lower extremity edema, no cyanosis. Left foot boot intact. Skin: skin color and turgor normal, no rashes or lesions noted, bandage to left knee intact. Neuro: spontaneous intermittent movements noted to left extremities. Did not follow commands duringmy evaluation. Labs: Recent Labs Component Name 10/30/22 0237 10/30/22 0017 10/29/22 0214 10/29/22 0010 10/28/22 0125 10/27/22 2029 10/27/22 0608 10/27/22 0054 10/26/22 0426 10/26/22 0002 10/23/22 0129 10/22/22 0153 WBC - 17.9* - 21.3* - 21.1* - 19.5* - 16.1* - - HGB - 7.6* - 7.8* - 7.6* - 8.0* - 8.1* - - MCV - 96.0 - 96.1 - 96.0 - 94.6 - 95.1 - - PLT - - - - - - - - - - - 199 INR 1.0 - 1.0 - 1.0 - 1.1 - 1.0 - - - - = values in this interval not displayed. Recent Labs Component Name 10/30/22 0017 10/29/22 0010 10/28/22 0125 NA 141 138 138 CL 107 106 106 CO2 25 24 26 BUN 11 9 9 CREATININE 0.61 0.54* 0.54* Recent Labs Component Name 10/19/22 0824 06/15/22 0757 12/09/18 0812 AST 19 17 18 ALT 16 9 17 ALKPHOS 52 44 56 TBILI 0.1* 0.1* - ALB 3.5 3.6 - Imaging: CT HEAD WO CONTRAST Result Date: 10/28/2022 IMPRESSION: 1. Evolving right MCA subacute infarct status post decompressive craniectomy. Grossly unchanged right frontotemporal subdural hemorrhage. Grossly unchanged gyriform hyperdensity in the infarcted area may represent subarachnoid hemorrhage. No midline shift. Unchanged mildly dilated ventricles may represent mild hydrocephalus. 2. Unchanged small focus of hypoattenuation in the left frontal lobe likely represents additional subacute infarct. The report is dictated by Kayla Stevenson MD (resident services coordinator) 1 I, Lonnie Rae MD have personally reviewed and interpreted this examination/study. > Interpreting Provider: Lonnie Rae MD on 10/28/2022 9:[address] HEAD WO CONTRAST Result Date: 10/27/2022 IMPRESSION: 1. Redemonstration of evolving right MCA subacute infarct, status post right decompressive craniectomy. The extra-axial hematoma underlying the craniectomy site and subarachnoid hemorrhage in the right cerebral sulci are grossly unchanged. Mass effect on the right lateral ventricle is unchanged. No significant midline shift. 2. Small focus of likely a subacute infarct in the left frontal lobe is unchanged. > Interpreting Provider: Lonnie Rae MD on 10/27/2022 12:[address] HEAD WO CONTRAST Result Date: 10/26/2022 IMPRESSION: 1. Redemonstration of evolving large right MCA territory acute to subacute infarct without definite evidence of hemorrhagic transformation. Unchanged minimal leftward midline shift of about 2 mm at the level of foramen of Monro and effacement of the left lateral ventricle. 2. Redemonstration of postsurgical changes from right-sided decompressive hemicraniectomy, unchanged compared to prior study. These results were discussed with stroke resident Dr Mendez by Dr. Miranda Bowen at8:05 AM on 10/26/2022 with read back confirmation and closed-loop communication. The report is dictated by Miranda Bowen MD (resident services coordinator) Oriana Ornelas MD have personally reviewed and interpreted this examination/study. > Interpreting Provider: Oriana Suarez MD on 38:[address] CHEST ABDOMEN PELVIS W CONT Result Date: 10/25/2022 Impression: 1.Occlusion of the right distal external [...] verification. > Dictated by Clarisa Cantrell MD (resident services coordinator). IAlexx have personally reviewed and interpreted this examination/study. > Interpreting Provider: Alexx Lopez on 10/25/2022 4:[address] HEAD WO CONTRAST Result Date: 10/25/2022 IMPRESSION: Redemonstrated postoperative changes consistent with right calvarial hemicraniectomy. Fluid collection overlying the lateral right cerebral hemisphere within the craniectomy defect containing some recent blood products. The overall size of this fluid collection is less than on previous study. In addition, there is less air/gas within this defect. Evolving large recent right cerebral hemisphere infarct with mass effect and approximately 2 mm of midline shift right to left. There appears to be slightly less mass effect and midline shift on today's study. Continued follow-up is recommended. Small recent cortical infarct in the lateral left frontal lobe as well as small recent infarc t in left martínez radiata which appears similar to previous study. Clinical correlation recommended.The report is dictated by Miranda Bowen MD (resident services coordinator) Joni Ornelas MD have personally reviewed and interpreted this examination/study. > Interpreting Provider: Joni Fabian MD on 10/25/2022 2:[address] CARDIAC ANGIO STRUCT MORPH Result Date: 10/25/2022 Impression: 1. 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 2. Patent coronary vessels within the limitation of the motion artifact given the elevated heart during this exam > Interpreting Provider: Pepe Gonzalez MD on 10/25/2022 12:03 AM MRI BRAIN WWO CONTRAST Result Date: 10/24/2022 IMPRESSION: 1.Redemonstration of postoperative changes of a right hemicraniectomy with expected postsurgical changes as outlined above. 2.Redemonstration of evolving large right MCA territory infarction with extensive cytotoxic edema and mild external herniation of the brain through the craniectomydefect. Persistent local mass effect on the right cerebral hemisphere, effacement of the right lateral ventricle, and approximately 3-4 mm vyuvc-ec-wjeb midline shift, grossly similar to the prior. 3.Mild dilation of the left lateral ventricle may represent subtle left ventricular entrapment, overall grossly similar to prior. 4.Additional multiple foci of abnormal diffusion within the left frontotemporal lobes with associated T2 FLAIR hyperintensity representing additional small acute to subacute infarcts, likely of cardioembolic etiology. Findings communicated to Dr. Mohr by Dr. Major at 1138 hours on 10/24/2022 with readback comprehension and verification. Report dictated by Tim Major MD (resident services coordinator). I, Jasper Sifuentes MD have personally reviewed and interpreted this examination/study. > Interpreting Provider: Jasper Sifuentes MD on 10/24/2022 1:59 PM One light brown unformed Stool 10/29/2022. Clear yellow urine per indwelling puentes catheter. Assessment 41 year old female with a PMH significant for GERD, HTN, Migraine, obesity, procedural/surgical history significant for c/section (03/01/2016), lap cholecystomy (02/22/2012) and colonoscopy with polypectomy (08/25/2021) with acute malignant right MCA infarction with deficits including but not limited to dysphagia. Recommendations ?? percutaneous endoscopic gastrostomy tube placement once patient medically stable. ?? Nothing by feeding tube and hold heparin after midnight prior to procedure date. Above recommendations discussed with GI attending. We will continue to follow this patient with you. Please contact us with further questions ANCA Locke-CORBIN * Anita Richards - 10/28/2022 10:11 AM CDTAssociated Order(s): IP CONSULT TO FARM CONTRACTOR Social Work Consult Note Consult acknowledged Chart reviewed Reason for Consult: SW consulted by Bulmaro Ochoa RN for Patient Admission in facility Comments: Patient is tentatively scheduled for OR 10/30 for right femoral cutdown, thrombectomy, angiogram with possible intervention, possible vein harvest. Patient will need updated therapy orders and notes following surgery. Patient is an [employer] employee w/ [employer] insurance. [employer] [employer] Senior User Experience Architect Becky is following for disposition needs Discharge Plan: Post acute recommendation: Undetermined or Intense 3 hour per day multidisciplinary inpatient therapies Discharge Facility Information: [facility] Anticipated Discharge Date: 11/03/22 Payer/Plan Subscriber Name Rel Member # Group # [id number]* CONSUELO DARBY [id number] [address] [address] Emergency Contacts: Extended Emergency Contact Information Primary Emergency Contact: MehnazHi Address: [address] [place] [address] [place] [address] [facility] Relation: Spouse Secondary Emergency Contact: Sandra Disla [facility] Mobile Relation: Mother Thank you for the referral, JAYLENE Holcomb, HUMERA [facility] 10/28/2022 10:12 AM * Jovana Armstrong MD - 10/26/2022 12:24 PM CDT Vascular Surgery Consult Note ADMIT: 10/19/2022 7:53 AM LOS: 7 days 6 Days Post-Op 10/26/2022 Assessment: Consuelo Darby is a 41 year old female with a h/o recent R MCA M1 stroke s/p R femoral access for MCA thrombectomy and cerebral angiogram with 8F angioseal closure on 10/19 who presents as a consult for occlusion of the R EIA + proximal EXTRUDING PRESS ADJUSTER extending into the profunda with reconstitution identified on CT scan 10/25. Per review of angio images, stick appears to be high and correlates with location of occlusion - highly suspicious for iatrogenic vascular injury of the external iliac artery. She currently does not have signs of acute limb ischemia and is motor/sensory intact with a multiphasic DP signal present. Plan: - will order YING multilevel -frequent neurovascular checks - q1h - please call vascular surgery immediately if any ischemic changes present in the RLE -agree with heparin gtt, continue for now - Rest of care per primary team, please call with any questions or concerns Patient and plan discussed with Dr. Clay. History of Present Illness: Consuelo Darby is a 41 year old female with a h/o R MCA stroke admitted 10/19 for R femoral access+ suction thrombectomy + 8F angioseal closure; hemicraniectomy by NSGY 10/20, who presents as a consult for occlusion identified on CT scan performed 10/25/22. She is currently in the neuro ICU for recovery and is also being evaluated by cardiac surgery for a aortic valve vegetation concerning for endocarditis vs fibroelastoma. Per the pt's family at bedside, she has never had any problems with the arteries or veins in her legs. She has never had any previous vascular procedures. Neither family nor nursing have noticed pallor, ischemic changes to the RLE. The pt denies any pain in the RLE currently and has motor function.She is able to follow commands and give thumbs up/thumbs down for communication. ASA: no Statin: yes Antiplatelet: no Anticoagulant: yes - heparin gtt Past Medical History: Past Medical History: Diagnosis Date [...] DECOMPRESSIVE HEMICRANIECTOMY, POSS ICP MONITOR, POSS EVD Home Medications: Current Facility-Administered Medications Medication ??? *Hold/Avoid Medication ??? *Hold/Avoid Medication ??? 0.9% NaCl injection 3 mL And ??? 0.9% NaCl injection 1-10 mL ??? 0.9% NaCl injection 3 mL And ??? 0.9% NaCl injection 3 mL ??? acetaminophen (Tylenol) tablet 500 mg ??? atorvastatin (Lipitor) tablet 80 mg ??? cefTRIAXone (Rocephin) 2,000 mg in 0.9% NaCl IV 50 mL IVPB ??? dextrose 10 % IV bolus Or ??? dextrose 10 % IV bolus ??? diphenhydrAMINE-zinc acetate (Benadryl Extra Strength) 2-0.1 % cream ??? glucagon (Glucagen) injection 1 mg ??? glucose (Diabetic Use) (Dex4 Glucose) oral liquid ??? glucose (Diabetic Use) oral gel ??? glucose chew tablet 4 tablet ??? guaiFENesin (Robitussin) solution 10 mL ??? heparin 100 units/mL in dextrose 5 % infusion ??? iopamidol (Isovue 370) 76 % contrast ??? lansoprazole (Prevacid) suspension 30 mg ??? loratadine (Claritin) tablet 10 mg ??? metoprolol tartrate IR (Lopressor) tablet 25 mg ??? oxymetazoline (Afrin) 0.05 % nasal spray 2 spray ??? polyethylene glycol 3350 (Miralax) packet 17 g ??? senna-docusate (Senokot-S) tablet 1 tablet ??? tamsulosin (Flomax) capsule 0.4 mg ??? vancomycin (Vancocin) 1,250 mg in 250 mL NaCl IVPB Premix ??? vancomycin (Vancocin) IV dose per pharmacy ??? verapamil (Isoptin) tablet 40 mg ??? vitamin D3 (Cholecalciferol) 25 MCG (1000 UNITS) tablet 2,000 Units Allergies: Allergies Allergen Reactions ??? 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 Marital status: Occupational History ??? 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 Smoking status: Former Packs/day: 0.50 Types: Cigarettes Quit date: 2015 Years since quittin.6 ??? Smokeless tobacco: Never Vaping Use ??? Vaping Use: Never used Substance and Sexual Activity ??? Alcohol use: No Alcohol/week: 0.0 - 1.7 standard drinks of alcohol Comment: Occasional ??? Drug use: No ??? Sexual activity: Yes Partners: Male control/protection: Pill Other Topics Concern ??? Special Diet No Family History: Family History Problem Relation Name Age of Onset ??? Cancer Maternal Grandfather Lung ??? Diabetes Maternal Grandfather ??? Diabetes Maternal Grandmother ??? Hypertension Mother ??? Thyroid Disease Mother Review of Systems: Aside from systems mentioned in the HPI, all other systems are negative. Objective: BP 116/66 Pulse 92 Temp 97.6 ??F (36.4 ??C) (Axillary) Resp 20 Ht 1.626 m (5' 4 ) Wt 95.3kg (210 lb) SpO2 97% Physical Exam: Gen: NAD ENT: Hemicraniectomy incision appears c/d/i. NG in place. Resp: NLR CV: RRR Abd: Soft, Non-distended and Non-peritoneal, no rebound/guarding MSK: Both lower extremities are WWP, motor/sensory intact. No pallor or cyanosis. Bruising to the Rgroin region Vasc: RLE: multiphasic DP signal; faint PT signal; unable to palpate femoral with faint signal identified LLE: palpable DP, PT pulses Neuro: follows commands Labs: CBC: Lab results smartLinks are not currently available BMP: Lab results smartLinks are not currently available Recent Labs Component Name 10/26/22 0002 10/25/22 0007 10/23/22202810/23/22 0129 10/22/22 0153 WBC 16.1* 16.6* 17.4* - - HGB 8.1* 8.2* 8.0* - - HCT 25.1* 25.1* 24.4* - - PLT - - - - 199 - = values in this interval not displayed. Recent Labs Component Name 10/26/22 0002 10/25/22 0007 10/23/222028 NA 139 140 140 CL 105 106 110* CO2 24 25 23 BUN 13 16 14 CREATININE 0.54* 0.48* 0.56 CALCIUM 8.4 9.0 8.5 MAGNESIUM 1.9 2.1 2.1 Recent Labs Component Name 10/19/22 0824 06/15/22 0757 12/09/18 0812 PROT 7.7 7.5 - ALB 3.5 3.6 - TBILI 0.1* 0.1* - AST 19 17 18 ALT 16 9 17 ALKPHOS 52 44 56 Recent Labs Component Name 10/26/22 1124 10/26/22 0647 10/26/22 0426 10/26/22 0155 10/25/22 2102 10/25/22 1641 10/23/222028 INR - - 1.0 - - 1.0 1.0 PTT 51.1* 44.3* - 20.5* - 24.8 21.4* - = values in this interval not displayed. Imaging: CT HEAD WO CONTRAST Result Date: 10/26/2022 IMPRESSION: 1. Redemonstration of evolving large right MCA territory acute to subacute infarct without definite evidence of hemorrhagic transformation. Unchanged minimal leftward midline shift of about 2 mm at the level of foramen of Monro and effacement of the left lateral ventricle. 2. Redemonstration of postsurgical changes from right-sided decompressive hemicraniectomy, unchanged compared to prior study. These results were discussed with stroke resident Dr Mendez by Dr. Miranda Bowen at8:05 AM on 10/26/2022 with read back confirmation and closed-loop communication. The report is dictated by Miranda Bowen MD (resident services coordinator) I, Oriana Suarez MD have personally reviewed and interpreted this examination/study. > Interpreting Provider: Oriana Suarez MD on 38:[address] CHEST ABDOMEN PELVIS W CONT Result Date: 10/25/2022 Impression: 1.Occlusion of the right distal external [...] verification. > Dictated by Clarisa Cantrell MD (resident services coordinator). I, Alexx Lopez have personally reviewed and interpreted this examination/study. > Interpreting Provider: Alexx Lopez on 10/25/2022 4:16 PM Vascular Surgery High Risk Variables: Cardiac Arrhythmia: no Malnutrition: no Cardiomyopathy: no Chronic Kidney Disease: no Dementia: no Fluid & Electrolyte Disorders: no Respiratory Failure: no Shock: no Cachexia: no Coagulation Defect: [id number]-[id number] gtt Jovana Armstrong MD PGY-6 Vascular Surgery Fellow 10/26/22 12:25 PM * Hodan Oliveira RN - 10/25/2022 11:08 AM CDTAssociated Order(s): IP CONSULT TO RECOVERY AUDITOR I have been consulted due to the possibility or diagnosis of stroke, chart reviewed. Patient Name: Consuelo Darby Arrival: Start: Start (10/19/22819) EMS Activated Code Stroke: Yes Arrival Mode: EMS Arrival Service(document name here): [place] 1342 (10/19/22 08) EMS Glucose Bedside (mg/dL): 141 mg/dL (10/19/22819) EMS BP: 136/84 (10/19/22 08) Last Known Well: Last known to be well Last known well - Date: 10/19/22 (10/19/22 105) Last known well - Time: 0630 (10/19/22 1050) Initial NIHSS Score: NIH Total: 26 (10/19/22 1050) Last Documented NIHSS Score: NIH Total: 26 (10/24/221999) Initial Blood Pressure: BP: 174/91 (10/19/22 0803) Current Blood Pressure: BP: 112/71 (10/25/22 1000) Stroke Risk Factors: Sex, control use and Obesity/Inactivity Quality Measures - Risk Factor Modification VTE Prophylaxis by day 2: Received VTE Prophylaxis: Sequential Compression Device Anticoagulant if in Afib: NA SARAH/ILR: Received Interventions? S/p TNK and mechanical thrombectomy with TICI2b revascularization of right MCA M1 occlusion LDL= Recent Labs Component Name 10/20/22 0302 06/15/22 0757 LDLCALC 91 117* High Intensity Statin: Received HGBA1C = Recent Labs Component Name 10/20/22 1015 HGBA1C 6.0* Appropriate Diet for patient based on HgBA1c: Diabetic I) HGBA1C >6.5 Employee Communications Intern has been consulted per protocol to provide the patient with appropriate educational resources to better manage stroke risk factors. Diabetes plan of care based on A1c: Patient's A1c is less than 6.4%. For patients with A1c <6.4%, no further recommendations. Nursing Swallow Screen: Total Score of questionnaire (6 or greater did not advance to the water test): Total Row: 5 (10/19/221999) Water Test Results: Fail - (Clinical signs of aspiration noted) - Keep NPO, notify physician and place on aspiration precautions. (10/19/221999) Evaluated by Therapy: Pending Discharge Recommendation: Patient not medically stable for evaluation at this time. Personalized Stroke Education Added to AVS: Completed Depression Screen Score = Received Does not meet criteria for screening: Aphasia PHQ-2 PHQ-9 Nursing pending course of action: 1) Complete stroke/TIA education daily. 2) Individualize stroke care plan, document daily. 3) Complete neuro checks and document as ordered by MD. 4) Complete NIHSS per MD orders. (If patient has an NIHSS deviation of 4 or greater from baseline, or per nursing judgement, please call Neurologist and repeat swallow screen evaluation.) 5) Complete depression screener for patient's diagnosed with stroke/TIA on day 2 or prior to discharge to evaluate the patient's potential for developing depression. Imaging: CT CARDIAC ANGIO STRUCT MORPH Result Date: 10/25/2022 Impression: 1. 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 2. Patent coronary vessels within the limitation of the motion artifact given the elevated heart during this exam > Interpreting Provider: Pepe Gonzalez MD on 10/25/2022 12:03 AM MRI BRAIN WWO CONTRAST Result Date: 10/24/2022 IMPRESSION: 1.Redemonstration of postoperative changes of a right hemicraniectomy with expected postsurgical changes as outlined above. 2.Redemonstration of evolving large right MCA territory infarction with extensive cytotoxic edema and mild external herniation of the brain through the craniectomydefect. Persistent local mass effect on the right cerebral hemisphere, effacement of the right lateral ventricle, and approximately 3-4 mm [id number] midline shift, grossly similar to the prior. 3.Mild dilation of the left lateral ventricle may represent subtle left ventricular entrapment, overall grossly similar to prior. 4.Additional multiple foci of abnormal diffusion within the left frontotemporal lobes with associated T2 FLAIR hyperintensity representing additional small acute to subacute infarcts, likely of cardioembolic etiology. Findings communicated to Dr. Mohr by Dr. Major at 1138 hours on 10/24/2022 with readback comprehension and verification. Report dictated by Tim Major MD (resident services coordinator). Jasper Ornelas MD have personally reviewed and interpreted this examination/study. > Interpreting Provider: Jasper Sifuentes MD on 10/24/2022 1:[address] HEAD WO CONTRAST Result Date: 10/23/2022 IMPRESSION: 1.Redemonstration of postsurgical changes of decompressive craniectomy and evolving right middle cerebral artery territory infarct. 2.No hemorrhagic transformation. 3.Extensive cytotoxic edema and mass effect with approximately 2 mm midline shift, [place] similar or slightly improved from prior. 4.Stable right intracranial pressure monitor. The report is dictated by Miranda Bowen MD(resident services coordinator) Jasper Ornelas MD have personally reviewed and interpreted this examination/study. > Interpreting Provider: Jasper Sifuentes MD on 10/23/2022 9:[address] HEAD WO CONTRAST Result Date: 10/22/2022 IMPRESSION: 1.Redemonstration of postsurgical changes of decompressive right hemicraniectomy for evolving right middle cerebral artery territory infarct. There is significant edema and mass effect with approximately 4 mm of midline shift, unchanged from prior. No evidence of new acute intracranial hemorrhage. > Interpreting Provider: Lonnie Rae MD on 10/22/2022 3:[address] HEAD WO CONTRAST Result Date: 10/22/2022 IMPRESSION: 1.Stable appearance of postsurgical changes of decompressive right hemicraniectomy for evolving right middle cerebral artery territory infarct. There is significant edema and mass effect with approximately 4 mm of midline shift, unchanged from prior. No evidence of new acute intracranial hemorrhage. Report dictated by Lorenzo Horta MD (nursing resident). Lonnie Ornelas MD have personally reviewed and interpreted this examination/study. > Interpreting Provider: Lonnie Rae MD on 10/22/2022 3:[address] HEAD WO CONTRAST Result Date: 10/20/2022 IMPRESSION: Interval postsurgical changes of decompressive right hemicraniectomy with ICP monitor and subdural drain in place. 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 > Dictated by Bassam Jovel M.D. (nursing resident) Gonzalez Ornelas MD have personally reviewed and interpreted this examination/study. > Interpreting Provider: Gonzalez Velasco MD on 10/20/2022 11:[address] HEAD NON CONTRAST Result Date: 10/20/2022 IMPRESSION: Findings consistent with a large acute area of infarction in the right cerebral hemisphere in the distribution of the right middle cerebral artery with mass effect and approximately 4 mm of midline shift right to left. There is no definite hemorrhagic transformation. There is hyperdensity of the right middle cerebral artery likely representing thrombus. Clinical correlation and continued close interval follow-up are recommended. Results discussed with the stroke team physician, Dr. Stephanie Hester, on 20 October 2022 approximately 1225 hours. > Interpreting Provider: Joni Fabian MD on 10/20/2022 12:[address] ANGIO BRAIN NECK STROKE Result Date: 10/19/2022 IMPRESSION: 1. Occlusion of the distal M1 [...] Lonnie Rae MD on 10/19/2022 8:[address] BRAIN - Stroke Result Date: 10/19/2022 IMPRESSION: 1. No acute intracranial hemorrhage. 2. [...] Lonnie Rae MD on 10/19/2022 8:15 AM Thank you for allowing me to participate in the care of Consuelo Darby. Hodan Oliveira RN, BSN Stroke Navigator, [facility] Ascom: [phone] Email: [email or web address] * Ernestine Almanza DMD - 10/24/2022 8:34 PM CDT Images from the original note were not included. Dental consultation Ms. Darby was seen for a dental consultation. Limited exam due to limited opening. Exam revealed full dentition in good shape. There is no evidence of broken teeth or retained root tips. No evidence of large carious lesions on exam. Unable to examine posterior teeth and check third molars due to limited opening. was bedside and reports patient having her regularly scheduled dental prophylaxis about a month ago and believes she did not have any problems. Panorex recommended once patient is able to get it. Will discuss findings with primary team. 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 Hi Darby (Spouse) [phone] (Home Phone) Unit: [facility] 3N ICU Bed: 309 / 01 Current location: [facility] MRI * Liam Parks MD - 10/24/2022 1:06 PM CDT [facility] Infectious Diseases Consultation Patient Name: Consuelo Darby 1980 Room: [facility] Date of Admission: 10/19/2022 Date of Service: 10/24/2022 Primary Care Physician: Yvan Booth MD Attending Physician: Emir Vail MD Reason for Infectious Disease Consultation Aortic valve vegetation, infective endocarditis rule out History of Present Illness HPI: Consuelo Darby is a 41 year old female with a past medical history significant foressential hypertension, migraine, GERD. Patient [facility] to [facility] on 10/19/2022 as code stroke due to acute onset left sided weakness, left sided sensory deficits, and dysarthria. As per chart review, BIBEMS for code stroke, called EMS for after he found patient down on ground next to bed at 0645. LKW approximately 0630. EMS reports patient with left side hemiparesis, and non verbal on arrival. En route, EMS reports patient answers questions appropriately and speech cleared. On interview with today patient was in her usual state of health the day before prior to admission and that he heard her wake up after her alarmwent of and she went to the bathroom to get ready and after a few minutes he saw her on the ground.Upon further questioning, reports that she had been feeling in her usual state before this episodes and denies anything out of the ordinary in the last few days prior to onset of symptoms. Hedenies fever, chills, diaphoresis, chest pain, dyspnea, cough, sputum production, change in bowel habits, dysuria, weight changes, joint pains, rashes, sick contacts, insects or tick bites. She lives with in [place], [place]. 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 They recently went to a trip to [place] for vacation, she bathed in the sea but only up to her feet, no espinoza, went to a water park, denies eating any type of seafood while on vacation. de scribes her a indoor type, no recent hiking, farm animal exposure, wild animal exposure. She has a regular diet and denies raw food, seafood, unpasteurized milk. No other outdoor hobbies. She has yearly wellness exams and well woman exams. Family unsure if up to date with cancer screening. denies any recent dental issues and she has regular prophylactic teeth cleanings. She has a medical history significant for migraine for which she takes rizatriptan, and amitriptyline, she has hypertension for which she takes metoprolol and verapamil, GERD for which she takes Prilosec, and environmental allergies for which she takes Zyrtec as needed. She is on control with combined OCP levonorgestrel/ethinyl estradiol. Surgical history of two C-sections and cholecystectomy; denies foreign material implants. NKDA. Family history remarkable for Sjogren in sister and breast cancer in maternal aunt. Social history: past smoker, smoked for approximately 15 years, less than a pack a day and quit approximately 8 years ago, occasional alcohol consumption, denies drugs and IVDU. She was afebrile, hemodynamically stable on initial examination. Labs were remarkable for mild leukocytosis. Neurology was consulted on admission and underwent stroke protocol. She was found to have right MCA ischemic stroke. Interventional neurology was consulted and patient underwent diagnostic catheter cerebral angiogram and revascularization of right MCA occlusion on 10/19/2022. She was then transferred to the ICU for close monitoring. Hospital stay was complicated by developing cerebral edema for which neurosurgery was consulted and patient was taken to the OR for right decompressive hemicraniectomy on 10/20/2022. As part of embolic/ischemic stroke work up, patient also underwent SARAH andshowed vegetation on aortic side of left coronary cusp, negative bubble study, no thrombus in left atrial appendage. ID consulted to rule out IE. Medical History Past Medical History: Diagnosis Date ??? Abdominal pain, right upper quadrant ??? GERD (gastroesophageal reflux disease) ??? History of hypertension gestational hypertension Surgical History Past Surgical History: Procedure Laterality Date ??? Section ??? Section 03/01/2016 SECTION REPEAT ??? Cholecystectomy ??? Cholecystectomy, Laparoscopic 02/22/2012 N/A; LAPAROSCOPIC CHOLECYSTECTOMY SINGLE INCISION ??? COLONOSCOPY ??? COLONOSCOPY N/A 08/25/2021 HYPERPLASTIC, REPEAT 5 YEARS, AYLICHA ??? COLONOSCOPY WITH POLYPECTOMY N/A 08/25/2021 N/A; COLONOSCOPY REMOVAL OR ABLATION TUMOR/POLYP/LESION (ANY METHOD) Social History As per HPI Social History Socioeconomic History ??? Marital status: Spouse name: Not on file ??? Number of children: Not on file ??? Years of education: Not on file ??? Highest education level: Not on file Occupational History ??? 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 Smoking status: Former Packs/day: 0.50 Types: Cigarettes Quit date: 2015 Years since quittin.6 ??? Smokeless tobacco: Never Vaping Use ??? [...] No Stress: No Stress Concern Present (10/19/2022) [place] [employer] - Occupational Stress Questionnaire ??? Feeling of Stress : Only a little Housing Stability: Low Risk (10/19/2022) Housing Stability Vital Sign ??? Unable to Pay for Housing in the Last Year: No ??? Number of Places Lived in the Last Year: 1 ??? Unstable Housing in the Last Year: No Immunizations: Immunization History Administered Date(s) Administered ??? Covid Pfizer primary monovalent 12+ yr 0.3mL Purple cap 03/03/2020, 03/25/2020 ??? INFLUENZA 01/06/2013, 12/11/2015, 12/13/2018, 12/15/2019, 12/13/2020, 12/10/2021 ??? PPD 10/13/2020 ??? TDAP 12/21/2015 Family History Family History Problem Relation Name Age of Onset ??? Cancer Maternal Grandfather Lung ??? Diabetes Maternal Grandfather ??? Diabetes Maternal Grandmother ??? Hypertension Mother ??? Thyroid Disease Mother I have confirmed the past medical, surgical, family and social history. Review of Systems Review of Systems Unable to perform ROS: Mental status change Allergies Allergies Allergen Reactions ??? 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 Authorizing Provider amitriptyline (Elavil) 50 MG tablet Take 2 (two) tablets by mouth at bedtime 08/17/22 Armand Jacinto MD Cetirizine HCl (ZYRTEC PO) Take 10 mg by mouth once daily Armand Jacinto MD levonorgestrel-ethinyl estradiol (LESSINA-28) 0.1-20 MG-MCG tablet TAKE 1 TABLET BY MOUTH EVERY DAYFOR CONTROL Reasons: Control Treatment 02/08/22 Jean Joy MD metoprolol tartrate IR (Lopressor) 25 MG tablet Take 1 (one) tablet by mouth 2 times daily 08/15/22 Armand Jacinto MD omeprazole (PriLOSEC) 20 MG capsule Take 20 mg by mouth daily before breakfast Armand aJcinto MD verapamil SR 24hr (Verelan) 120 MG capsule Take 1 (one) capsule by mouth at bedtime 10/17/22 Armand Jacinto MD Vitamin D3, cholecalciferol, 50 MCG (1999 UT) tablet Take 2,000 Units by mouth once daily Armand Jacinto MD Inpatient Medications ??? *Hold/Avoid Medication Other DIRECTED ??? *Hold/Avoid Medication Other 00 and 1999 ??? 0.9% NaCl 3 mL Intracatheter q8h ??? 0.9% NaCl 3 mL Intracatheter q8h ??? artificial tears Each Eye q8h ??? aspirin 81 mg Enteral Tube QDAY ??? atorvastatin 80 mg Enteral Tube AT BEDTIME ??? chlorhexidine 15 mL Mouth/Throat BID ??? enoxaparin 40 mg Subcutaneous QDAY ??? gadobutrol Intravenous Contrast - Once ??? guaiFENesin 10 mL Enteral Tube q12h ??? iopamidol Intravenous Contrast - Once ??? lansoprazole 30 mg Enteral Tube QDAY BEFORE BREAKFAST ??? loratadine 10 mg Enteral Tube QDAY ??? metoprolol tartrate IR 25 mg Enteral Tube q12h ??? polyethylene glycol 3350 17 g Enteral Tube QDAY ??? senna-docusate 1 tablet Enteral Tube QDAY ??? tamsulosin 0.4 mg Oral QDAY ??? verapamil 40 mg Enteral Tube q8h ??? Vitamin D3 (cholecalciferol) 2,000 Units Enteral Tube QDAY Objective Vitals BP 119/71 Pulse 97 Temp 98.9 ??F (37.2 ??C) (Axillary) Resp 23 Ht 1.626 m (5' 4 ) Wt 95.3kg (210 lb) SpO2 100% Temp (24hrs), Av.9 ??F (37.2 ??C), Min:98.5 ??F (36.9 ??C), Max:100.2 ??F (37.9 ??C) Physical Exam Physical Exam Vitals and nursing note reviewed. Constitutional: General: She is awake. She is not in acute distress. Appearance: She is ill-appearing. She is not toxic-appearing or diaphoretic. HENT: Head: Comments: Right hemicraniectomy surgical wound clean, no discharge or erythema Cardiovascular: Rate and Rhythm: Normal rate and regular rhythm. Pulses: Normal pulses. Heart sounds: Normal heart sounds. No murmur heard. No friction rub. No gallop. Pulmonary: Effort: Pulmonary effort is normal. No respiratory distress. Breath sounds: Normal breath sounds. No wheezing, rhonchi or rales. Chest: Breasts: Right: Normal. No mass. Left: Normal. No mass. Abdominal: General: Abdomen is flat. Bowel sounds are normal. There is no distension. Palpations: Abdomen is soft. Tenderness: There is no abdominal tenderness. Musculoskeletal: Right lower leg: No edema. Left lower leg: No edema. Neurological: Mental Status: She is disoriented and confused. Lines: left forearm PIV, left hand PIV Lab Review CBC: Recent Labs Component Name 10/23/22202810/23/2212810/22/22 0153 10/21/22 2316 WBC 17.4* 16.7* - 18.4* RBC 2.58* 2.52* - 2.62* HGB 8.0* 7.8* - 8.1* HCT 24.4* 23.8* - 25.1* MCV 94.6 94.4 - 95.8 PLT - - 199 - BMP: Recent Labs Component Name 10/23/22202810/23/2212810/21/22231510/20/2230110/19/2282306/15/22 0757 NA 140 140 142 - 139 138 CL 110* 108* 111* - 108* 107 CO2 23 25 20* - 21* 23 BUN 14 13 16 - 13 12 CREATININE 0.56 0.51* 0.65 - 0.84 0.74 ALB - - - - 3.5 3.6 PROT - - - - 7.7 7.5 - = values in this interval not displayed. estimated creatinine clearance is 151 mL/min (by C-G formula based on SCr of 0.56 mg/dL). LFTs: Recent Labs Component Name 10/19/2282306/15/22 0757 12/09/18 0812 07/25/186 03/01/16 0817 02/18/16 1209 07/07/13 2319 ALKPHOS 52 44 56 52 111 - 55 ALT 16 9 17 12* 21 - 15 AST 19 17 18 20 25 - 10 ALBUMIN - - 4.5 4.3 2.5* - 3.8 LIPASE - - - - - - 157 - = values in this interval not displayed. Coagulation: Recent Labs Component Name 10/23/22202810/20/2230110/19/22823 PT 13.4 13.6 12.3 INR 1.0 1.1 0.9 PTT 21.4* 24.4 - Microbiology, Imaging and other diagnostic tests MICROBIOLOGY: Blood culture: 10/23 in process 10/24 in process Other serologies: 10/23 MRSA DNA by PCR not detected HISTOPATHOLOGY: None at this admission IMAGING & PROCEDURES: I have independently reviewed all pertinent images. Reports in chart. Assessment and Recommendations Aortic valve vegetation Rule out infective endocarditis SARAH done as part of ischemic stroke work up Patient was admitted as a code stroke, noted to have right MCA stroke, s/p TNK and revascularization by interventional neurology; course complicated by cerebral edema s/p right hemicraniectomy by neurosurgery ID consulted for IE rule out in the setting of vegetation Blood cultures in process Rheumatologic and hypercoagulable work up in process Etiologies at this time include NBTE versus IE At this time, epidemiologically and assessing risk factors, this likely represent non-infectious process although will need further work up Blood cultures in process Can obtain imaging with CT chest, abdomen, pelvis w contrast to assess other occult infectious process or septic phenomena or other etiologies such as underlying malignancy Given inability to entirely rule out infection at this time, we consider reasonable to start empiric antibiotics to cover at least Staphylococcus and Streptococcus Further work up pending this results Cardio-embolic/ischemic stroke Unusual for a 41-year-old patient with no significant risk factors for CVA ?Underlying process Considering hypercoagulable state, either hereditary or in the setting of OCPs and migraine Neurology, cardiology, and rheumatology following Renal Function estimated creatinine clearance is 151 mL/min (by C-G formula based on SCr of 0.56 mg/dL). Plan/Recommendations Start empiric treatment for suspected IE: -Vancomycin IV as per pharmacy protocol -Ceftriaxone 2 g IV every 24 hours Follow blood cultures Follow rheumatologic and hypercoagulable work up Please obtain CT chest, abdomen, pelvis ideally with contrast if no contraindication Please obtain hepatitis C screening with HCV antibody testing with reflex to NAAT, if not done previously Please obtain HIV screening with 4th generation test, if not done previously Check CBC with auto diff and CMP weekly while on IV antibiotics Thank you for allowing us to participate in the care of this patient. We will continue to follow and monitor with you closely. Patient seen, examined, and case/plan were discussed with my attending physician, Dr. Delacruz. Case was discussed with primary team. Liam Parks MD (PGY-5) Infectious Diseases Fellow [facility] Pager: [phone] ID Clinic Associated attestation - Arturo Delacruz MD - 10/24/2022 5:13 PM CDT ID ATTENDING ATTESTATION I discussed this patient with the fellow and I agree with the findings and plan of care as documented by the fellow. Additionally, I interviewed and examined the patient myself and reviewed labwork, relevant imaging, and relevant history. I agree with the assessment and plan as detailed in the fellow note with the following modifications/additional thoughts. Briefly: Conducted extensive history-taking with family at bedside, as described below; no clear signs/sx ofinfection prior to stroke. Will await early culture growth - reasonable to start empiric antibiotics awaiting this, but I suspect that blood cultures will be negative. Imaging in search of concomitant malignancy that would predispose to NBTE, and also to r/o other embolic phenomena or sequelae thereof. Appreciate rheumatology input. Please see fellow note for full details. I spent 80 minutes in the care of this patient today, including chart review, history gathering, interview & exam of the patient, medical decision making, and coordination of care. Arturo Delacruz MD PhD Home Care Nurse [facility] Infectious Disease * Josue Castellanos MD - 10/23/2022 11:10 PM CDTAssociated Order(s): IP CONSULT TO RHEUMATOLOGY Rheumatology Inpatient Consultation Note Patient: Consuelo Darby ( , 1980, 41 year old female) Encounter Date: 10/19/2022 Consult requested by: Dr. Emir Vail Primary service: Stroke Team Reason for Admission: Stroke with Right M1 occlusion Reason for Consultation: Concern for Non bacterial thrombotic endocarditis. Subjective History of Present Illness: 41 yo woman admitted on 10/19/22 for right MCA stroke, s/p Tenecteplase and decompressive right hemicraniectomy after presenting with Left sided weakness, dysarthria and left gaze palsy. 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 Patient is intubated and history was obtained from chart review and at the bedside. States this was the first such episode. Denies any skin rashes, photosensitivity, joint pain/ swelling/ AM stiffness, sores, ulcers, sicca symptoms, glandular swelling, fatigeu, fevers,night sweats, nail changes, painful or non painful lesions on palms/ soles, vision changes, SOB, recurrent dental infections/ caries, urinary symptoms. Past medical history: HTN, migraines, GERD, HELLP syndrome with 1st in 2006 and colonic polyps Past surgical history: Her has a past surgical history that includes section; colonoscopy;cholecystectomy, laparoscopic (02/22/2012); cholecystectomy; section (03/01/2016); colonoscopy (N/A, 08/25/2021); and colonoscopy with polypectomy (N/A, 08/25/2021). 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 2 kids with no miscarriages. Review of Systems: Other systems reviewed and negative or noncontributory except as stated in the HPI. Home Medications: No current outpatient medications on file. Adverse Drug Reactions: Allergies Allergen Reactions ??? 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 Covid Pfizer primary monovalent 12+ yr 0.3mL Purple cap 03/03/2020, 03/25/2020 ??? INFLUENZA 01/06/2013, 12/11/2015, 12/13/2018, 12/15/2019, 12/13/2020, 12/10/2021 ??? PPD 10/13/2020 ??? TDAP 12/21/2015 Social History: Social History Socioeconomic History ??? Marital status: Occupational History ??? 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 Smoking status: Former Packs/day: 0.50 Types: Cigarettes Quit date: 2014 Years since quittin.6 ??? Smokeless tobacco: Never Vaping Use ??? Vaping Use: Never used Substance and Sexual Activity ??? Alcohol use: No Alcohol/week: 0.0 - 1.7 standard drinks of alcohol Comment: Occasional ??? Drug use: No ??? Sexual activity: Yes Partners: Male control/protection: Pill Other Topics Concern ??? Special Diet No Family History: Family History Problem Relation Name Age of Onset ??? Cancer Maternal Grandfather Lung ??? Diabetes Maternal Grandfather ??? Diabetes Maternal Grandmother ??? Hypertension Mother ??? Thyroid Disease Mother Patient Care Team: Yvan Booth MD Patient Care Team: Yvan Booth MD as PCP - General Jean Joy MD as PCP - Jaden Garcia DO as PCP - Attributed-[facility] ST[facility] Objective Physical Exam BP 110/70 Pulse 105 Temp 98.6 ??F (37 ??C) (Axillary) Resp 21 Ht 1.626 m (5' 4 ) Wt 95.3 kg (210 lb) LMP 02/01/2022 (Approximate) SpO2 97% No BMI 36.05 kg/m?? GENERAL: NAD HEENT/NECK: Right eye closed and swollen. CHEST/LUNGS: Normal work of breathing, CTAB. CARDIOVASCULAR: Regular rhythm, crisp S1/S2. No ASCENCION. ABDOMEN: S/ND/NT. SKIN/NAILS: hemicraniectomy scar present. PSYCH: Alert, appropriately interactive. NEURO: Couldn't assess as she was intubated. Good hand membership manager bilaterally. MSK: No synovitis, dactylitis, or enthesitis. Labs: Reviewed, including those as noted below Results for orders placed or performed during the hospital encounter of 10/19/22 (from the past 2352 hour(s)) GLUCOSE - POINT OF CARE Result Value Ref Range Glucose WB/POC 105 70 - 115 mg/dL Specimen Type Cap Fingerstick CREATININE - POCT INTERFACED Result Value Ref Range Creatinine POCT 0.78 0.30 - 1.30 mg/dL eGFR >90 >90 mL/min/1.73 m2 INR WHOLE BLOOD - POINT OF CARE (IP) STROKE Result Value Ref Range INR 0.9 0.9 - 1.2 Device [id number] [place] [id number] EKG 12-LEAD Result Value Ref Range Ventricular Rate 129 BPM Atrial Rate 129 BPM P-R Interval 134 ms QRS Duration ms 90 ms Q-T Interval ms 318 ms QTC Calculation (Bezet) 465 ms Calculated P [place] 55 degrees Calculated R [place] 13 degrees Calculated T [place]lock 5 degrees Interpretation EKG SINUS TACHYCARDIA OTHERWISE NORMAL ECG NO PREVIOUS ECGS AVAILABLE Confirmed by FLORA OTT MD ([id number]) on 10/19/2022 5:38:23 PM CBC W AUTO DIFFERENTIAL Result Value Ref Range WBC 10.9 (H) 3.5 - 10.5 10??3/uL RBC 4.73 3.80 - 5.20 10??6/uL Hemoglobin 14.4 12.0 - 15.6 g/dL Hematocrit 42.6 35.0 - 45.0 % MCV 90.1 80.7 - 98.3 fL MCH 30.4 26.7 - 34.0 pg MCHC 33.8 30.8 - 35.9 g/dL RDW-SD 43.4 36.0 - 50.0 fL RDW-CV 13.1 11.2 - 14.8 % Platelet Count 342 150 - 400 10??3/uL MPV 10.4 9.4 - 12.9 fL nRBC Absolute 0.00 0 10??3/uL nRBC Auto 0.0 0 /100 WBC Neutrophils % 67.3 35.0 - 70.0 % Lymphocytes % 23.9 20.0 - 43.0 % Monocytes % 6.4 5.0 - 13.0 % Eosinophils % 1.4 0.0 - 6.0 % Basophil % 0.6 0.0 - 2.0 % Neutrophils Absolute 7.33 (H) 1.60 - 7.00 10??3/uL Lymphocyte Absolute 2.61 1.10 - 3.90 10??3/uL Monocytes Absolute 0.70 0.26 - 1.07 10??3/uL Eosinophils Absolute 0.15 0.00 - 0.47 10??3/uL Basophils Absolute 0.07 0.00 - 0.08 10??3/uL Immature Granulocytes % 0.4 0.0 - 1.0 % Immature Granulocytes Absolute 0.04 COMPREHENSIVE METABOLIC PANEL Result Value Ref Range BUN 13 7 - 26 mg/dL Creatinine 0.84 0.56 - 0.96 mg/dL Sodium 139 136 - 145 mmol/L Potassium 4.2 3.5 - 4.5 mmol/L Chloride 108 (H) 98 - 107 mmol/L CO2 21 (L) 22 - 29 mmol/L Glucose 109 70 - 115 mg/dL Calcium 8.9 8.4 - 10.2 mg/dL Protein Total 7.7 6.0 - 8.3 g/dL Albumin 3.5 3.4 - 5.0 g/dL Bilirubin Total 0.1 (L) 0.2 - 1.2 mg/dL Alkaline Phosphatase 52 40 - 150 U/L ALT 16 5 - 55 U/L AST 19 5 - 34 U/L Anion Gap 14 8 - 18 BUN/Creatinine Ratio 15 7 - 23 Osmolality Calculated 289 270 - 300 mOsm/kg Albumin/Globulin Ratio 0.8 (L) 1.1 - 2.3 eGFR by CKD-EPI >90 >=90 mL/min/1.73 m2 PT-INR [facility] Result Value Ref Range PT 12.3 12.1 - 14.8 Seconds INR 0.9 See Comment TYPE + SCREEN PANEL Result Value Ref Range Antibody Screen NEG ABO Rh B POS HCG URINE QUALITATIVE Result Value Ref Range Test Urine Negative Negative URINE DRUG SCREEN IMMUNOASSAY Result Value Ref Range Amphetamines Screen Urine Negative Negative: < 1000 ng/mL Barbiturates Screen Urine Negative Negative: < 200 ng/mL Benzodiazepine Screen Urine Negative Negative: < 200 ng/mL Opiates Urine Negative Negative: < 300 ng/mL Cocaine Metabolites Urine Negative Negative: < 300 ng/mL Phencyclidine Screen Urine Negative Negative: < 25 ng/ml Cannabinoids Screen Urine Negative Negative: <50 ng/mL Methadone Screen Urine Negative Negative: < 300 ng/mL Fentanyl Screen Urine Negative Negative: <1.5 ng/mL GLUCOSE - POINT OF CARE Result Value Ref Range Glucose WB/POC 140 (H) 70 - 115 mg/dL Specimen Type Cap Fingerstick PROTEIN C ACTIVITY Result Value Ref Range Protein C Activity 150 83 - 168 % PROTEIN S ACTIVITY Result Value Ref Range Protein S Activity 134 (H) 57 - 131 % LUPUS ANTICOAGULANT PANEL Result Value Ref Range APTT 24.4 23.0 - 38.4 Seconds PT 13.6 12.1 - 14.8 Seconds INR 1.1 See Comment [facility] Buffer 37.8 Seconds [facility] Phospholipid 33.2 Seconds [facility] Delta 4.6 <8.0 Seconds Interpretation [facility] Negative BASIC METABOLIC PANEL (CALCIUM TOTAL) Result Value Ref Range BUN 6 (L) 7 - 26 mg/dL Creatinine 0.50 (L) 0.56 - 0.96 mg/dL Sodium 138 136 - 145 mmol/L Potassium 3.6 3.5 - 4.5 mmol/L Chloride 108 (H) 98 - 107 mmol/L CO2 21 (L) 22 - 29 mmol/L Glucose 140 (H) 70 - 115 mg/dL Calcium 8.2 (L) 8.4 - 10.2 mg/dL Anion Gap 13 8 - 18 BUN/Creatinine Ratio 12 7 - 23 Osmolality Calculated 286 270 - 300 mOsm/kg eGFR by CKD-EPI >90 >=90 mL/min/1.73 m2 CBC W/O DIFFERENTIAL Result Value Ref Range WBC 19.5 (H) 3.5 - 10.5 10??3/uL RBC 3.83 3.80 - 5.20 10??6/uL Hemoglobin 11.9 (L) 12.0 - 15.6 g/dL Hematocrit 35.4 35.0 - 45.0 % MCV 92.4 80.7 - 98.3 fL MCH 31.1 26.7 - 34.0 pg MCHC 33.6 30.8 - 35.9 g/dL RDW-SD 45.7 36.0 - 50.0 fL RDW-CV 13.5 11.2 - 14.8 % Platelet Count 292 150 - 400 10??3/uL MPV 9.9 9.4 - 12.9 fL nRBC Absolute 0.00 0 10??3/uL nRBC Auto 0.0 0 /100 WBC LIPID PROFILE Result Value Ref Range Cholesterol Total 173 <200 mg/dL HDL 42 >40 mg/dL LDL Calculated 91 <100 mg/dL Triglycerides 201 (H) <150 mg/dL BLOOD TYPE VERIFICATION Result Value Ref Range ABO Rh B POS GLUCOSE - POINT OF CARE Result Value Ref Range Glucose WB/POC 32 (LL) 70 - 115 mg/dL Specimen Type Cap Fingerstick GLUCOSE - POINT OF CARE Result Value Ref Range Glucose WB/POC 118 (H) 70 - 115 mg/dL Specimen Type Cap Fingerstick HEMOGLOBIN A1C Result Value Ref Range Hemoglobin A1c 6.0 (H) <=5.6 % Estimated Average Glucose 126 mg/dL GLUCOSE - POINT OF CARE Result Value Ref Range Glucose WB/POC 124 (H) 70 - 115 mg/dL Specimen Type Cap Fingerstick ECHO TRANSTHORACIC W BUBBLE STUDY Result Value Ref Range BSA 2.2338859 m2 LV biplane EF 64 54 - 74 % LV A2C EF 66 52 - 76 % LV A4C EF 66 46 - 78 % LV stroke vol BP 53.52 cm3 LV stroke vol 2D teich 32.61 ml LV stroke index A4C MOD 28.051 ml LVIDd 3.67 3.8 - 5.2 cm LVIDs 2.58 2.2 - 3.5 cm IVSd 2D 0.919 0.6 - 0.9 cm LVPWd 1.19 cm Fractional Shortening 2D 30 28 - 44 % LV ESV BP 13.266 14 - 42 mL LV ESV index BP 6.3 8 - 24 mL/m2 LV ESV A2C 14.674 10 - 54 mL LV EDV BP 37.07 mL LV ESV A4C 10.694 12 - 60 mL LV EDV index BP 17.5 29 - 61 mL/m2 LV EDV A2C 31.046 41 - 133 mL LV EDV A4C 42.725 mL LV ESV 2D 24.198 14 - 42 mL LV EDV 2D 56.808 46 - 106 mL LVOT diam 2.1 cm LVOT area 3.46 cm2 LV RWT 0.65 LV Mahmood A2C 6.823 cm LV Mahmood A4C 7.092 cm IVS/LVPW 0.771 LV mass 2D 86.6232 66 - 150 g LV mass index 2D 40.92 44 - 88 g/m2 MV E pk arianna 73.89 cm/s MV AVG E/E' 9.22 MV A pk arianna 73.505 cm/s MV E A ratio 1.01 MV E' lateral arianna 7.905 cm/s MV DT 134 ms MV E' septal arianna 8.119 cm/s MV A duration 66 ms MV E/e' septal 9.1 MV E/e' lateral 9.347 LVOT pk arianna 0.90 m/s LVOT mn arianna 0.61 m/s LVOT mn grad 1.7 mmHg LVOT Cardiac Output 13.175 l/min Qp:Qs 0.70 LA ESV A2C MOD Index 15 ml/m2 LA ESV A4C MOD Index 18 ml/m2 LA size 3.162 2.7 - 3.8 cm LA vol BP A-L 38.34 mL RV-mahmood basal diam 2.2 2.5 - 4.1 cm RV-mahmood longitudinal diam 5.4 5.9 - 8.3 cm RVIDd 2.3 cm RVOT diam Doppler 1.787 cm RVOT area Doppler 2.51 cm2 RVOT stroke vol 37.42 cm3 RVOT VTI 14.926 cm TRICUSPID VALVE S PRIME VELOCITY 12.03 TAPSE 2.088 1.7 cm RVOT pk arianna 0.83 m/s RA area 11.985 cm2 AV mn grad 5 mmHg AV pk grad 10 mmHg AV mn arianna 1.09 m/s AV pk arianna 1.58 m/s AV VTI 24.342 cm LVOT pk grad 3.226 mmHg LVOT VTI 15.461 cm AV area planimetry 2.20 cm2 AV area index 1.1 cm2/m2 AV area cont VTI 2.3 cm2 AV area pk arianna 2.1 cm2 AV Doppler arianna index pk arianna 0.57 Dimensionless Index 0.635 MV mn grad 2 mmHg MV pk grad 3 mmHg MV mn arianna 0.62 m/s MV pk arianna 79.498 cm/s MV PHT 39 ms MV area PHT 5.64 cm2 MV area cont eq 3.34 cm2 MV VTI 16.006 cm MV decel slope 550.922 cm/s2 RVOT mn grad 1 mmHg RVOT pk grad 3 mmHg PV area cont eq 2.2 cm2 PV mn grad 3 mmHg PV pk arianna 107.295 cm/s PV pk grad 5 mmHg PV VTI 17.168 cm PV mn arianna 76.135 cm/s IVC size 0.9 cm Max Age Predicted HR 181 Target HR 154 [id number] 6.054 cm [id number] 5.318 cm LEFT VENTRICLE STROKE VOLUME BIPLANE METHOD OF DISKS 23.804 ml/m2 LVIDs index 1.22 1.3 - 2.1 cm/m2 LV LVIDd index 1.73 2.3 - 3.1 cm/m2 HGB HCT PANEL Result Value Ref Range Hemoglobin 12.0 12.0 - 15.6 g/dL Hematocrit 36.6 35.0 - 45.0 % BLOOD GAS ART+LYTES+METAB+COOX POC NOTIF Result Value Ref Range Comment Notification Label Only - See Separate Report BLOOD GAS+COOX+LYTES+METAB ARTERIAL POCT Result Value Ref Range pH Arterial 7.36 7.35 - 7.45 pH pO2 Arterial 180 (H) 80 - 100 mmHg pCO2 Arterial 36 35 - 45 mmHg HCO3 Arterial 20.3 20.0 - 30.0 mmol/L BE Arterial -4.6 (L) -2.0 - 2.0 mmol/L Oxyhemoglobin Arterial 97.1 % Dexoyhemoglobin (HHB) % 1.1 % Methemoglobin 0.8 0.0 - 2.0 % Carboxyhemoglobin 1.0 0.0 - 2.0 % O2 Content Arterial 13.4 Interpret within clinical context ml/dL Hemoglobin by COOX 9.5 (L) 12.0 - 15.6 g/dL O2 Saturation Arterial 99 90 - 100 % Sodium Whole Blood 143 135 - 145 mmol/L Potassium Whole Blood 3.6 3.5 - 5.5 mmol/L Chloride WB 116 (H) 78 - 107 mmol/L Calcium Ionized 1.03 mmol/L Ionized Calcium pH Adjusted 1.01 (L) 1.19 - 1.34 mmol/L Anion Gap (AG) Arterial 10 8 - 18 mmol/L Glucose WB 155 (H) 70 - 115 mg/dL Lactic Acid Whole Blood 1.6 <=2.0 mmol/L BLOOD GASES ART + COOX PANEL Result Value Ref Range pH Arterial 7.36 7.35 - 7.45 pH pO2 Arterial 179 (H) 80 - 100 mmHg pCO2 Arterial 32 (L) 35 - 45 mmHg HCO3 Arterial 18.1 (L) 20.0 - 30.0 mmol/L BE Arterial -6.5 (L) -2.0 - 2.0 mmol/L Oxyhemoglobin Arterial 97.5 % Dexoyhemoglobin (HHB) % <1.0 % Methemoglobin 0.8 0.0 - 2.0 % Carboxyhemoglobin 1.0 0.0 - 2.0 % O2 Content Arterial 14.1 Interpret within clinical context ml/dL Hemoglobin by COOX 10.0 (L) 12.0 - 15.6 g/dL O2 Saturation Arterial 99 90 - 100 % FI O2 Arterial 40.0 % GLUCOSE - POINT OF CARE Result Value Ref Range Glucose WB/POC 164 (H) 70 - 115 mg/dL Specimen Type Cap Fingerstick GLUCOSE - POINT OF CARE Result Value Ref Range Glucose WB/POC 166 (H) 70 - 115 mg/dL Specimen Type Cap Fingerstick TROPONIN-I HIGH SENSITIVE BASELINE + 1HR Result Value Ref Range Troponin I High Sensitive <3 <=14 ng/L BASIC METABOLIC PANEL (CALCIUM TOTAL) Result Value Ref Range BUN 12 7 - 26 mg/dL Creatinine 0.64 0.56 - 0.96 mg/dL Sodium 142 136 - 145 mmol/L Potassium 4.8 (H) 3.5 - 4.5 mmol/L Chloride 115 (H) 98 - 107 mmol/L CO2 16 (L) 22 - 29 mmol/L Glucose 169 (H) 70 - 115 mg/dL Calcium 8.2 (L) 8.4 - 10.2 mg/dL Anion Gap 16 8 - 18 BUN/Creatinine Ratio 19 7 - 23 Osmolality Calculated 298 270 - 300 mOsm/kg eGFR by CKD-EPI >90 >=90 mL/min/1.73 m2 CBC W/O DIFFERENTIAL Result Value Ref Range WBC 18.7 (H) 3.5 - 10.5 10??3/uL RBC 2.98 (L) 3.80 - 5.20 10??6/uL Hemoglobin 9.4 (L) 12.0 - 15.6 g/dL Hematocrit 27.8 (L) 35.0 - 45.0 % MCV 93.3 80.7 - 98.3 fL MCH 31.5 26.7 - 34.0 pg MCHC 33.8 30.8 - 35.9 g/dL RDW-SD 48.8 36.0 - 50.0 fL RDW-CV 14.3 11.2 - 14.8 % Platelet Count 260 150 - 400 10??3/uL MPV 10.6 9.4 - 12.9 fL nRBC Absolute 0.00 0 10??3/uL nRBC Auto 0.0 0 /100 WBC MAGNESIUM BLOOD Result Value Ref Range Magnesium 2.2 1.6 - 2.6 mg/dL PHOSPHORUS BLOOD Result Value Ref Range Phosphorus 2.2 (L) 2.9 - 5.1 mg/dL RHEUMATOID FACTOR BLOOD QUANTITATIVE Result Value Ref Range Rheumatoid Factor <15 <30 IU/mL Rheumatoid Factor Screen Negative Negative COMPLEMENT C3 Result Value Ref Range Complement C3 155 82 - 193 mg/dL SARAH BLOOD SCREEN W/REFLEX TITER Result Value Ref Range SARAH IgG None Detected None Detected TROPONIN-I HIGH SENSITIVE REFLEX 1HOUR Result Value Ref Range Troponin I High Sensitive <3 <=14 ng/L Delta Troponin I HS CBC W AUTO DIFFERENTIAL Result Value Ref Range WBC 18.6 (H) 3.5 - 10.5 10??3/uL RBC 3.01 (L) 3.80 - 5.20 10??6/uL Hemoglobin 9.4 (L) 12.0 - 15.6 g/dL Hematocrit 27.9 (L) 35.0 - 45.0 % MCV 92.7 80.7 - 98.3 fL MCH 31.2 26.7 - 34.0 pg MCHC 33.7 30.8 - 35.9 g/dL RDW-SD 47.8 36.0 - 50.0 fL RDW-CV 14.1 11.2 - 14.8 % Platelet Count 259 150 - 400 10??3/uL MPV 10.5 9.4 - 12.9 fL nRBC Absolute 0.00 0 10??3/uL nRBC Auto 0.0 0 /100 WBC Neutrophils % 86.9 (H) 35.0 - 70.0 % Lymphocytes % 7.3 (L) 20.0 - 43.0 % Monocytes % 5.1 5.0 - 13.0 % Eosinophils % 0.0 0.0 - 6.0 % Basophil % 0.1 0.0 - 2.0 % Neutrophils Absolute 16.12 (H) 1.60 - 7.00 10??3/uL Lymphocyte Absolute 1.36 1.10 - 3.90 10??3/uL Monocytes Absolute 0.94 0.26 - 1.07 10??3/uL Eosinophils Absolute 0.00 0.00 - 0.47 10??3/uL Basophils Absolute 0.02 0.00 - 0.08 10??3/uL Immature Granulocytes % 0.6 0.0 - 1.0 % Immature Granulocytes Absolute 0.12 BLOOD GASES ART + COOX PANEL Result Value Ref Range pH Arterial 7.40 7.35 - 7.45 pH pO2 Arterial 143 (H) 80 - 100 mmHg pCO2 Arterial 31 (L) 35 - 45 mmHg HCO3 Arterial 19.2 (L) 20.0 - 30.0 mmol/L BE Arterial -4.8 (L) -2.0 - 2.0 mmol/L Oxyhemoglobin Arterial 97.2 % Dexoyhemoglobin (HHB) % <1.0 % Methemoglobin <0.8 0.0 - 2.0 % Carboxyhemoglobin 1.4 0.0 - 2.0 % O2 Content Arterial 13.6 Interpret within clinical context ml/dL Hemoglobin by COOX 9.7 (L) 12.0 - 15.6 g/dL O2 Saturation Arterial 99 90 - 100 % FI O2 Arterial 30.0 % GLUCOSE - POINT OF CARE Result Value Ref Range Glucose WB/POC 127 (H) 70 - 115 mg/dL Specimen Type Cap Fingerstick GLUCOSE - POINT OF CARE Result Value Ref Range Glucose WB/POC 129 (H) 70 - 115 mg/dL Specimen Type Cap Fingerstick MAGNESIUM BLOOD Result Value Ref Range Magnesium 2.2 1.6 - 2.6 mg/dL PHOSPHORUS BLOOD Result Value Ref Range Phosphorus 2.7 (L) 2.9 - 5.1 mg/dL CBC W AUTO DIFFERENTIAL Result Value Ref Range WBC 18.4 (H) 3.5 - 10.5 10??3/uL RBC 2.62 (L) 3.80 - 5.20 10??6/uL Hemoglobin 8.1 (L) 12.0 - 15.6 g/dL Hematocrit 25.1 (L) 35.0 - 45.0 % MCV 95.8 80.7 - 98.3 fL MCH 30.9 26.7 - 34.0 pg MCHC 32.3 30.8 - 35.9 g/dL RDW-SD 48.6 36.0 - 50.0 fL RDW-CV 14.0 11.2 - 14.8 % Platelet Count MPV Immature Platelet Fraction nRBC Absolute 0.00 0 10??3/uL nRBC Auto 0.0 0 /100 WBC Neutrophils % 69.8 35.0 - 70.0 % Lymphocytes % 18.4 (L) 20.0 - 43.0 % Monocytes % 10.9 5.0 - 13.0 % Eosinophils % 0.1 0.0 - 6.0 % Basophil % 0.1 0.0 - 2.0 % Neutrophils Absolute 12.87 (H) 1.60 - 7.00 10??3/uL Lymphocyte Absolute 3.38 1.10 - 3.90 10??3/uL Monocytes Absolute 2.00 (H) 0.26 - 1.07 10??3/uL Eosinophils Absolute 0.01 0.00 - 0.47 10??3/uL Basophils Absolute 0.02 0.00 - 0.08 10??3/uL Immature Granulocytes % 0.7 0.0 - 1.0 % Immature Granulocytes Absolute 0.13 BASIC METABOLIC PANEL (CALCIUM TOTAL) Result Value Ref Range BUN 16 7 - 26 mg/dL Creatinine 0.65 0.56 - 0.96 mg/dL Sodium 142 136 - 145 mmol/L Potassium 3.7 3.5 - 4.5 mmol/L Chloride 111 (H) 98 - 107 mmol/L CO2 20 (L) 22 - 29 mmol/L Glucose 120 (H) 70 - 115 mg/dL Calcium 8.0 (L) 8.4 - 10.2 mg/dL Anion Gap 15 8 - 18 BUN/Creatinine Ratio 25 (H) 7 - 23 Osmolality Calculated 296 270 - 300 mOsm/kg eGFR by CKD-EPI >90 >=90 mL/min/1.73 m2 GLUCOSE - POINT OF CARE Result Value Ref Range Glucose WB/POC 171 (H) 70 - 115 mg/dL Specimen Type Venous PLATELET COUNT AUTO CITRATED BLOOD Result Value Ref Range Platelet Count Citrated Blood 199 150 - 400 10??3/uL GLUCOSE - POINT OF CARE Result Value Ref Range Glucose WB/POC 109 70 - 115 mg/dL Specimen Type Cap Fingerstick GLUCOSE - POINT OF CARE Result Value Ref Range Glucose WB/POC 98 70 - 115 mg/dL Specimen Type Cap Fingerstick GLUCOSE - POINT OF CARE Result Value Ref Range Glucose WB/POC 127 (H) 70 - 115 mg/dL Specimen Type Cap Fingerstick GLUCOSE - POINT OF CARE Result Value Ref Range Glucose WB/POC 124 (H) 70 - 115 mg/dL Specimen Type Cap Fingerstick MAGNESIUM BLOOD Result Value Ref Range Magnesium 2.0 1.6 - 2.6 mg/dL PHOSPHORUS BLOOD Result Value Ref Range Phosphorus 3.4 2.9 - 5.1 mg/dL CBC W AUTO DIFFERENTIAL Result Value Ref Range WBC 16.7 (H) 3.5 - 10.5 10??3/uL RBC 2.52 (L) 3.80 - 5.20 10??6/uL Hemoglobin 7.8 (L) 12.0 - 15.6 g/dL Hematocrit 23.8 (L) 35.0 - 45.0 % MCV 94.4 80.7 - 98.3 fL MCH 31.0 26.7 - 34.0 pg MCHC 32.8 30.8 - 35.9 g/dL RDW-SD 46.7 36.0 - 50.0 fL RDW-CV 13.5 11.2 - 14.8 % Platelet Count 265 150 - 400 10??3/uL MPV 10.3 9.4 - 12.9 fL nRBC Absolute 0.00 0 10??3/uL nRBC Auto 0.0 0 /100 WBC Neutrophils % 70.7 (H) 35.0 - 70.0 % Lymphocytes % 18.4 (L) 20.0 - 43.0 % Monocytes % 9.2 5.0 - 13.0 % Eosinophils % 0.6 0.0 - 6.0 % Basophil % 0.3 0.0 - 2.0 % Neutrophils Absolute 11.79 (H) 1.60 - 7.00 10??3/uL Lymphocyte Absolute 3.07 1.10 - 3.90 10??3/uL Monocytes Absolute 1.54 (H) 0.26 - 1.07 10??3/uL Eosinophils Absolute 0.10 0.00 - 0.47 10??3/uL Basophils Absolute 0.05 0.00 - 0.08 10??3/uL Immature Granulocytes % 0.8 0.0 - 1.0 % Immature Granulocytes Absolute 0.13 BASIC METABOLIC PANEL (CALCIUM TOTAL) Result Value Ref Range BUN 13 7 - 26 mg/dL Creatinine 0.51 (L) 0.56 - 0.96 mg/dL Sodium 140 136 - 145 mmol/L Potassium 3.4 (L) 3.5 - 4.5 mmol/L Chloride 108 (H) 98 - 107 mmol/L CO2 25 22 - 29 mmol/L Glucose 132 (H) 70 - 115 mg/dL Calcium 8.3 (L) 8.4 - 10.2 mg/dL Anion Gap 10 8 - 18 BUN/Creatinine Ratio 25 (H) 7 - 23 Osmolality Calculated 292 270 - 300 mOsm/kg eGFR by CKD-EPI >90 >=90 mL/min/1.73 m2 GLUCOSE - POINT OF CARE Result Value Ref Range Glucose WB/POC 113 70 - 115 mg/dL Specimen Type Cap Fingerstick MRSA DNA PCR Specimen: Nasal; Microbiology Result Value Ref Range MRSA DNA by PCR Not detected Not detected ERYTHROCYTE SEDIMENTATION RATE Result Value Ref Range Erythrocyte Sedimentation Rate Westergren 55 (H) 0 - 20 MM/HR C-REACTIVE PROTEIN Result Value Ref Range C-Reactive Protein 12.1 (H) <=0.5 mg/dL GLUCOSE - POINT OF CARE Result Value Ref Range Glucose WB/POC 105 70 - 115 mg/dL Specimen Type Cap Fingerstick MAGNESIUM BLOOD Result Value Ref Range Magnesium 2.1 1.6 - 2.6 mg/dL PHOSPHORUS BLOOD Result Value Ref Range Phosphorus 3.1 2.9 - 5.1 mg/dL CBC W AUTO DIFFERENTIAL Result Value Ref Range WBC 17.4 (H) 3.5 - 10.5 10??3/uL RBC 2.58 (L) 3.80 - 5.20 10??6/uL Hemoglobin 8.0 (L) 12.0 - 15.6 g/dL Hematocrit 24.4 (L) 35.0 - 45.0 % MCV 94.6 80.7 - 98.3 fL MCH 31.0 26.7 - 34.0 pg MCHC 32.8 30.8 - 35.9 g/dL RDW-SD 46.7 36.0 - 50.0 fL RDW-CV 13.6 11.2 - 14.8 % Platelet Count 310 150 - 400 10??3/uL MPV 10.4 9.4 - 12.9 fL nRBC Absolute 0.03 (H) 0 10??3/uL nRBC Auto 0.2 (H) 0 /100 WBC Neutrophils % 69.8 35.0 - 70.0 % Lymphocytes % 19.2 (L) 20.0 - 43.0 % Monocytes % 8.8 5.0 - 13.0 % Eosinophils % 1.1 0.0 - 6.0 % Basophil % 0.2 0.0 - 2.0 % Neutrophils Absolute 12.14 (H) 1.60 - 7.00 10??3/uL Lymphocyte Absolute 3.33 1.10 - 3.90 10??3/uL Monocytes Absolute 1.52 (H) 0.26 - 1.07 10??3/uL Eosinophils Absolute 0.19 0.00 - 0.47 10??3/uL Basophils Absolute 0.04 0.00 - 0.08 10??3/uL Immature Granulocytes % 0.9 0.0 - 1.0 % Immature Granulocytes Absolute 0.15 BASIC METABOLIC PANEL (CALCIUM TOTAL) Result Value Ref Range BUN 14 7 - 26 mg/dL Creatinine 0.56 0.56 - 0.96 mg/dL Sodium 140 136 - 145 mmol/L Potassium 4.1 3.5 - 4.5 mmol/L Chloride 110 (H) 98 - 107 mmol/L CO2 23 22 - 29 mmol/L Glucose 119 (H) 70 - 115 mg/dL Calcium 8.5 8.4 - 10.2 mg/dL Anion Gap 11 8 - 18 BUN/Creatinine Ratio 25 (H) 7 - 23 Osmolality Calculated 292 270 - 300 mOsm/kg eGFR by CKD-EPI >90 >=90 mL/min/1.73 m2 Other Studies: SARAH 10/23/22: ??? Aortic??Valve: Valve structure is normal. There is a 6 x 7 mm independently mobile mass on the left coronary cusp. Differential includes vegetation (non- bacterial thrombotic endocarditis, infective endocarditis) vs less likely fibroelastoma. ??? Left??Atrium: No right to left intracardiac or extracardiac shunt present viewable with agitated saline, color Doppler and Valsalva maneuver. Normal sized appendage. Normal appendage flow velocity. No thrombus present in the left atrial appendage (MADELEINE). ??? Left??Ventricle: Left ventricle size is normal. Hyperdynamic systolic function with a visually estimated EF of 75 - 80%. ??? No hemodynamically significant valvular abnormality. CT head 10/23/22: 1.Redemonstration of postsurgical changes of decompressive craniectomy and evolving right middle cerebral artery territory infarct. 2.No hemorrhagic transformation. 3.Extensive cytotoxic edema and mass effect with approximately 2 mm midline shift, [place] similar or slightly improved from prior. 4.Stable right intracranial pressure monitor. CT head 10/22/22: 1.Stable appearance of postsurgical changes of decompressive right hemicraniectomy for evolving right middle cerebral artery territory infarct. There is significant edema and mass effect with approximately 4 mm of midline shift, unchanged from prior. No evidence of new acute intracranial hemorrhage. CT head 10/22/22: 1.Redemonstration of postsurgical changes of decompressive right hemicraniectomy for evolving right middle cerebral artery territory infarct. There is significant edema and mass effect with approximately 4 mm of midline shift, unchanged from prior. No evidence of new acute intracranial hemorrhage. CT head 10/20/22: Interval postsurgical changes of decompressive right hemicraniectomy with ICP monitor and subdural drain in place. 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 CT head 10/20/22: Findings consistent with a large acute area of infarction in the right cerebral hemisphere in the distribution of the right middle cerebral artery with mass effect and approximately 4 mm of midline shift right to left. There is no definite hemorrhagic transformation. There is hyperdensity of the right middle cerebral artery likely representing thrombus. Clinical correlation and continued close interval follow-up are recommended. CT angio, brain, neck stroke: 1. Occlusion of the distal M1 segment and 2 proximal M2 segments of the right middle cerebral artery. A small early M2 segment of the right MCA is patent. Some reconstitution of the distal branches. 2. No large arterial occlusions or significant stenoses identified in the head or neck. CT brain stroke 10/19/22: 1. No acute intracranial hemorrhage. 2. Suggestion of subtle hypoattenuation with loss of scott-white matter differentiation in the right frontotemporal lobes and the right insula, concerning for an acute infarct in the right MCA distribution. An MRI is recommended to confirm this finding. There is suggestion of a hyperdense right MCA likely represent acute thrombus or an artifact. Assessment & Recommendations #. Right MCA stroke, s/p Tenecteplase and decompressive right hemicraniectomy: #. 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 Leucocytosis: She presented with Rt MCA stroke and found to have AV vegetation on SARAH.The vegetation could be thesource of stroke. Cardiology on board. Denies fevers, night sweats, IV use, SOB, arthralgias, skin lesions. Continues to have elevated WBC. -Differentials for valvular vegetations include Infective endocarditis vs. Non Bacterial Thromboticendocarditis vs. Fibroelastoma. - Most common causes of NBTE include SLE, APS, advanced malignancy. She has no clinical features orsymptoms of lupus (including negative SARAH) or Sjogren's. No clinical features of advanced malignancy. - Lupus anticoagulant negative on 10/20/22. We recommend further labs as below for work up of APS. SUMMARY OF RECOMMENDATIONS Labs: - Anti Beta-2 glycoprotein Antibody IgA, IgG, IgM - Anti Cardiolipin Antibody IgA, IgG, IgM - Anti Phosphatidylserine Ab Others: - Defer further ID/ hereditary coagulopathy workup to primary team. Primary team informed of the above recommendations. Rheumatology will continue to follow. Please contact the rheumatology fellow on- call with questions. This patient was seen and staffed with attending Dr. Jasso. Josue Castellanos MD Rheumatology Fellow [facility] Associated attestation - Gonzalez Jasso MD - 10/24/2022 7:49 AM CDT Rheumatology Attending Attestation: I have seen and examined the patient with the fellow and I agree with the findings and plan of careas documented by the fellow. Today???s evaluation to inform management recommendations included review of other providers??? documentation and review of diagnostic studies, as well as included coordination of care with other providers and patient counseling regarding their medical problems and management plan. Total time spent directly in patient care and care coordination: >35 mins. Date of Service: 10/23/22. Gonzalez Jasso MD, FACP Director, Rheumatology Fellowship Program Department of Internal Medicine [facility] * Jaden Ordaz, MIRROR SILVERER-LEAD MANUFACTURING TECHNICIAN - 10/23/2022 3:23 PM CDTAssociated Order(s): IP CONSULT TO CARD SURGERY - CARDIAC TEAM CARDIAC SURGERY Consult H&P Patient Name: Consuelo Darby : 1980 Private Graduate Recruiter: Dr. Stuart PCP: Yvan Booth MD Referring Facility: [facility]: Consuelo Darby is a 41 year old female with a past medical history significant for hypertension who is being evaluated for left aortic coronary cusp vegetation. Per chart review the patient presented to the hospital on 10/19 with right MCA syndrome, s/p TNK. CTA with M1 occlusion, s/p mechanical thrombectomy. S/p decompressive right hemicraniectomy. Today an echo was obtained showing a mobile aortic valve vegetation for which CTS was consulted. Cardiac risk factors include but not limited to hypertension. Cardiothoracic High Risk Variables N/A Were these Present on Admission? N/A Patient Active Problem List Diagnosis Date Noted ??? Acute cerebrovascular accident (CVA) due to embolism of right middle cerebral artery (CMS/HCC) 10/19/2022 Priority: High ??? Nihss score 9 10/19/2022 Priority: High ??? Received intravenous tissue plasminogen activator (tPA) in emergency department 10/19/2022 Priority: High ??? Hemianopsia 10/19/2022 Priority: Not Prioritized ??? Weakness 10/19/2022 Priority: Not Prioritized ??? Left-sided sensory deficit present 10/19/2022 Priority: Not Prioritized ??? 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 Migraine 10/19/2022 Priority: Not Prioritized ??? Hypertension 10/19/2022 Priority: Not Prioritized ??? Right middle cerebral artery stroke (CMS/HCC) 10/19/2022 ??? GERD (gastroesophageal reflux disease) Past Medical History: Diagnosis Date ??? Abdominal [...] COLONOSCOPY REMOVAL OR ABLATION TUMOR/POLYP/LESION (ANY METHOD) Medications Prior to Admission Medication Sig Dispense Refill ??? amitriptyline (Elavil) 50 MG tablet Take 2 (two) tablets by mouth at bedtime ??? Cetirizine HCl (ZYRTEC PO) Take 10 mg by mouth once daily ??? levonorgestrel-ethinyl estradiol (LESSINA-28) 0.1-20 MG-MCG tablet TAKE 1 TABLET BY MOUTH EVERYDAY FOR CONTROL Reasons: Control Treatment 84 tablet 4 ??? metoprolol tartrate IR (Lopressor) 25 MG tablet Take 1 (one) tablet by mouth 2 times daily ??? omeprazole (PriLOSEC) 20 MG capsule Take 20 mg by mouth daily before breakfast ??? verapamil SR 24hr (Verelan) 120 MG capsule Take 1 (one) capsule by mouth at bedtime ??? Vitamin D3, cholecalciferol, 50 MCG (2000 UT) tablet Take 2,000 Units by mouth once daily Allergies Allergen Reactions ??? 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 Smoking status: Former Packs/day: 0.50 Types: Cigarettes Quit date: 2014 Years since quittin.6 ??? Smokeless tobacco: Never Vaping Use ??? Vaping Use: Never used Substance Use Topics ??? Alcohol use: No Alcohol/week: 0.0 - 1.7 standard drinks of alcohol Comment: Occasional Family History Problem Relation Name Age of Onset ??? Cancer Maternal Grandfather Lung ??? Diabetes Maternal Grandfather ??? Diabetes Maternal Grandmother ??? Hypertension Mother ??? Thyroid Disease Mother Review of Systems Review of systems not obtained due to patient factors: Intubated, minimally responsive Objective: BP 136/80 Pulse (!) 140 Temp 99.4 ??F (37.4 ??C) (Axillary) Resp 21 Ht 1.626 m (5' 4 ) Wt95.3 kg (210 lb) SpO2 98% General appearance: Intubated, not sedated, not-alert HEENT: Right surgical scalp incision s/p hemicraniectomy, carla in place, ETT in place Heart: regular rhythm, normal S1 and S2, without murmurs, rubs or gallops Lungs: Mechanically ventilated, breath sounds normal and symmetric; no rales or wheezes Abdomen: soft without mass, non-tender, with normal bowel sounds Extremities: no clubbing, cyanosis, trace peripheral edema Data Review CBC: Recent Labs Component Name 10/23/22 0129 10/21/22 2316 10/21/22 0753 10/21/22 0459 WBC 16.7* 18.4* 18.6* 18.7* HGB 7.8* 8.1* 9.4* 9.4* HCT 23.8* 25.1* 27.9* 27.8* PLTCOUNT 265 - 259 260 BMP: Recent Labs Component Name 10/23/22 0129 10/21/22 2316 10/21/22 0459 06/15/22 0757 12/09/18 0812 07/25/18205503/01/16 0817 SODIUM - - - - 138 135* 141 POTASSIUM 3.4* 3.7 4.8* - 3.8 3.8 3.6 CHLORIDE - - - - 102 103 110* CO2 25 20* 16* - 24 21* 21* BUN 13 16 12 - 10 7 9 CREATININE 0.51* 0.65 0.64 - 0.82 0.93 0.60 GLUCOSE 132* 120* 169* - 120* 105 83 CALCIUM 8.3* 8.0* 8.2* - 9.4 9.2 8.1* - = values in this interval not displayed. Coagulation: Recent Labs Component Name 10/20/22 0302 10/19/22 0824 10/19/22 0809 PT 13.6 12.3 - INR 1.1 0.9 0.9 ABGs: Recent Labs Component Name 10/21/22 0801 10/20/22 2246 10/20/22 1936 FIO2 30.0 40.0 - PH 7.40 7.36 7.36 PCO2 31* 32* 36 BE -4.8* -6.5* -4.6* PO2 143* 179* 180* O2SAT 99 99 99 OND2HEQ 19.2* 18.1* 20.3 ECHO: TTE- Left??Ventricle: Left ventricle size is normal. Normal wall thickness. Normal systolic function with a visually estimated EF of 60 - 65%. Normal wall motion. Normal diastolic function. ??? Normal RV size and systolic function. ??? No significant valvular abnormalities. ??? Bubble study negative for shunt. ??? Normal IVC and visualized portion of aorta. SARAH with aortic valve vegetation Cath Performed: no ECG: Sinus tachycardia, no acute ST/T wave abnormalities Chest X-Ray: normal Assessment and Plan: DIAGNOSIS: Consuelo Darby is a 41 year old female with a past medical history significant for hypertension s/p right MCA occlusion s/p thrombectomy and hemicrainectomy who is being evaluated for newly found left aortic coronary cusp vegetation. Surgeon Staffed: To be staffed with Dr. Anne At this time, the patient does not present as a surgical candidate due to recent right MCA occlusion with thrombectomy and hemicraniectomy. The patient is at an increased risk for bleeding intraoperatively. She has not yet returned to her baseline with noted left sided weakness/ neglect. Thus far her infectious workup is negative. She is at jordan risk for additional thrombotic event, agree with parth holcomb per primary service. The patient will be staffed with Dr. Anne and final recommendations to follow. Jaden Ordaz APRN-LEAD MANUFACTURING TECHNICIAN 10/23/2022 3:25 PM Associated attestation - Mahad Anne MD - 10/30/2022 6:13 PM CDT Events noted. 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 S/p TPA and hemicraniotomy. S/p right femoral artery repair Recommend: Repeat SARAH when able. For persistent mass, options will be challenging given her overall functional status currently. * Ananth Llanos MD - 10/23/2022 1:23 PM CDT CARDIOLOGY CONSULTATION NOTE Patient: Consuelo Darby Age: [age] year old Date of : 1980 Date of Admission: 10/19/2022 Date: 10/23/2022 Reason for consult: Vegetation on SARAH HISTORY: It was my pleasure to see Ms. Consuelo Darby in consultation at [facility] on 10/23/2022 for evaluation of vegetation that was seen on SARAH. She is a pleasant 41 year old female with a history of HTN, Migraines, GERD, colonic polyps, got admitted to the hospital for acute onsetof left sided weakness, sensory deficits and dysarthria. She was noted to R MCA occlusion s/p TNK administration, mechanical thrombectomy with R M1 recanalization that was followed by decompressive right hemicraniectomy after CT from 10/20/22 showed edema and midline shift. Cardiology was consulted after SARAH showed Vegetation on aortic side of Left coronary cusp. Patient was sedated and intubated at the time of this encounter so history was obtained from chart review and patient's and mother. 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 Patient was found lying on the floor by her and she had left sided weakness and dysarthria. Patient has no known Cardiac history. She is very active and had not reported any anginal symptoms previously. Patient doesn't have any personal history of abortions, miscarriages or diagnosis of an autoimmune condition other than HELLP syndrome during her first in 2006. Patient's sister carried diagnosis of Sjogren syndrome. They denied any family history of cancers. Patients family denied Consuelo reporting any symptoms of fever, chills, cough, joint pains, rash or unusual fatigue in last several months. PAST MEDICAL HISTORY: HTN, migraines, GERD, HELLP syndrome with 1st in 2006 and colonic polyps PAST SURGICAL HISTORY: Her has a past surgical history that includes section; colonoscopy;cholecystectomy, laparoscopic (02/22/2012); cholecystectomy; section (03/01/2016); colonoscopy (N/A, 08/25/2021); and colonoscopy with polypectomy (N/A, 08/25/2021). 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 amitriptyline (Elavil) 50 MG tablet Take 2 (two) tablets by mouth at bedtime ??? Cetirizine HCl (ZYRTEC PO) Take 10 mg by mouth once daily ??? levonorgestrel-ethinyl estradiol (LESSINA-28) 0.1-20 MG-MCG tablet TAKE 1 TABLET BY MOUTH EVERYDAY FOR CONTROL Reasons: Control Treatment 84 tablet 4 ??? metoprolol tartrate IR (Lopressor) 25 MG tablet Take 1 (one) tablet by mouth 2 times daily ??? omeprazole (PriLOSEC) 20 MG capsule Take 20 mg by mouth daily before breakfast ??? verapamil SR 24hr (Verelan) 120 MG capsule Take 1 (one) capsule by mouth at bedtime ??? Vitamin D3, cholecalciferol, 50 MCG (2000 UT) tablet Take 2,000 Units by mouth once daily CURRENT MEDICATIONS: ??? *Hold/Avoid Medication Other DIRECTED ??? *Hold/Avoid Medication Other 0800 and 1999 ??? 0.9% NaCl 3 mL Intracatheter q8h ??? 0.9% NaCl 3 mL Intracatheter q8h ??? artificial tears Each Eye q8h ??? aspirin 81 mg Enteral Tube QDAY ??? atorvastatin 80 mg Enteral Tube AT BEDTIME ??? chlorhexidine 15 mL Mouth/Throat BID ??? enoxaparin 40 mg Subcutaneous QDAY ??? guaiFENesin 10 mL Enteral Tube q12h ??? lansoprazole 30 mg Enteral Tube QDAY BEFORE BREAKFAST ??? loratadine 10 mg Enteral Tube QDAY ??? metoprolol tartrate IR 25 mg Enteral Tube q12h ??? polyethylene glycol 3350 17 g Enteral Tube QDAY ??? senna-docusate 1 tablet Enteral Tube QDAY ??? tamsulosin 0.4 mg Oral QDAY ??? verapamil 40 mg Enteral Tube q8h ??? Vitamin D3 (cholecalciferol) 2,000 Units Enteral Tube QDAY dexmedeTOMIDine, 0-1.5 mcg/kg/hr, Last Rate: 0.2 mcg/kg/hr (10/23/22 1303) propofol, 0-50 mcg/kg/min, Last Rate: Stopped (10/23/22 130) REVIEW OF SYSTEMS: Review of Systems: Complete ROS not completed as patient was sedated and intubated at the time of encounter PHYSICAL EXAM: General appearance: sedated and intubated HEENT: Barrow noted in the scalp Neck: The thyroid is not enlarged and is symmetric, without tenderness, masses or nodules. Chest: Clear to auscultation bilaterally. No wheeze/rhonchi, rales Heart: regular rhythm but tachycardic. S1, S2 normal. No murmurs, rubs or gallops. There is no jugular venous distension noted. Abdomen: Soft, non-tender, non-distended. No palpable masses. Bowel sounds audible on auscultation Extremities: No edema in lower extremities bilaterally. Pulses: 2+ radial and dorsalis pedis pulses bilaterally Intake/Output Summary (Last 24 hours) at 10/23/2022 1324 Last data filed at 10/23/2022 0600 Gross per 24 hour Intake 1270.14 ml Output 1995 ml Net -724.86 ml Temp: [98.2 ??F (36.8 ??C)-99.5 ??F (37.5 ??C)] 99.4 ??F (37.4 ??C) Pulse: [86-142] 100 Resp: [9-29] 23 BP: (95-159)/(52-116) 106/65 O2 %: [30 %] 30 % BP 106/65 Pulse 100 Temp 99.4 ??F (37.4 ??C) (Axillary) Resp 23 Ht 1.626 m (5' 4 ) Wt 95.3 kg (210 lb) SpO2 98% DATA REVIEWED: LABS: CBC: Recent Labs Component Name 10/23/22 0129 10/22/22 0153 10/21/22 2316 10/21/22 0753 WBC 16.7* - 18.4* 18.6* HGB 7.8* - 8.1* 9.4* HCT 23.8* - 25.1* 27.9* MCV 94.4 - 95.8 92.7 PLT - 199 - - Coagulation Panel: Recent Labs Component Name 10/20/22 0302 10/19/22 0824 10/19/22 0809 PT 13.6 12.3 - INR 1.1 0.9 0.9 PTT 24.4 - - BMP: Recent Labs Component Name 10/23/22 0129 10/21/22 2316 10/21/22 0459 NA 140 142 142 CL 108* 111* 115* CO2 25 20* 16* BUN 13 16 12 CREATININE 0.51* 0.65 0.64 CALCIUM 8.3* 8.0* 8.2* No results for input(s): MG in the last 19120 hours. Recent Labs Component Name 10/23/22 0129 10/21/22 2316 10/21/22 0459 PHOS 3.4 2.7* 2.2* Hepatic Panel: Recent Labs Component Name 10/19/22 0824 06/15/22 0757 12/09/18 0812 AST 19 17 18 ALT 16 9 17 ALKPHOS 52 44 56 TBILI 0.1* 0.1* - ALB 3.5 3.6 - ABG: Recent Labs Component Name 10/21/22 0801 10/20/22 2246 10/20/22 1936 PH 7.40 7.36 7.36 PCO2 31* 32* 36 PO2 143* 179* 180* Cardiac Enzymes: Troponin x 2: Negative (<3) Lipid Panel: Recent Labs Component Name 10/20/22 0302 LDLCALC 91 HDL 42 A1c: 6.0 Other labs: 1. Protein S activity: 134 2. Protein C activity: 150 3. LA- phospholipid: 33.2 seconds 4. SARAH: negative 5. RF: negative 6. Tissue transglutaminase: negative 7. C3: with in normal range 8. Toxicology screen: negative Immunoassay measurements of anti-cardiolipin and anti-beta-2 glycoprotein 1 are recommended if the DRVVT, and STACLOT-LA tests are negative ECG: - Sinus tachycardia without any changes concerning for ischemia ECHO: TTE: 10/20/22: ??? Left??Ventricle: Left ventricle size is normal. Normal wall thickness. Normal systolic functionwith a visually estimated EF of 60 - 65%. Normal wall motion. Normal diastolic function. ??? Normal RV size and systolic function. ??? No significant valvular abnormalities. ??? Bubble study negative for shunt. ??? Normal IVC and visualized portion of aorta SARAH: 10/20/22: ??? Aortic??Valve: Valve structure is normal. There is a 6 x 7 mm independently mobile mass on the left coronary cusp. Differential includes vegetation ??? Left??Atrium: No right to left intracardiac or extracardiac shunt present viewable with agitated saline, color Doppler and Valsalva maneuver. Normal sized appendage. Normal appendage flow velocity. No thrombus present in the left atrial appendage (MADELEINE). ??? Left??Ventricle: Left ventricle size is normal. Hyperdynamic systolic function with a visually estimated EF of 75 - 80%. ??? No hemodynamically significant valvular abnormality. CARDIAC STRESS TEST: None on file HEART CATHETERIZATION: None on file ASSESSMENT: In summary, she is a 41 year old female with a history of HTN, Migraines, GERD, colonic polyps admitted to [facility] for acute onset of left sided weakness, sensory deficits and dysarthria that started last .She was noted to have R MCA occlusion. Patient had TNK administration with no improvement for whichshe underwent mechanical thrombectomy with recanalization. Per Neuro team, this thrombectomy was dif ficult than usual. Patient later underwent decompressive right hemicraniectomy after CT from 10/20/22 showed edema and midline shift. Cardiology was consulted after SARAH showed Vegetation on aortic side of Left coronary cusp. After reviewing the images, this vegetation/mass has a pedunculated structure and it measures 6 x 7mm in size. Differentials for this kind of vegetation in a young female include Infective endocarditis, non bacterial thrombotic endocarditis and fibroelastoma. With respect to infectious cause, patient had no febrile symptoms prior to the incident per family,no known drug use history (negative toxicology screen) and patient also remained afebrile in the hospital without significant leukocytosis. This seems less likely in her case however given IE being the most common cause of vegetations, we should obtain complete infectious work up including 3 sets of blood cultures. Fibroelastoma: It would be again very hard to say unless there we can see this under the microscopebut definitely a possibility. Non bacterial thrombotic endocarditis/ Libman: Given her young age, family history of Sjogren (autoimmune) condition in her sister, a complete hypercoagulable and autoimmune work up should be obtained checking for conditions like SLE, antiphospholipid syndrome etc. Initial work up including SARAH so far has come back negative. PLAN: - This vegetation could be hard to say if this is infectious vs non bacterial thrombotic vs Fibroelastoma. Best plan would be to complete infectious work up with 3 sets of blood cultures and do a complete hypercoagulable and autoimmune work up. This was already ordered by primary team. - If the infectious work up comes back negative, it would be reasonable to start Heparin drip. Thiswas discussed with Neuro ICU team who agreed with the plan. - Please involve CTS - Will follow up on Cardiac CT that was done today - Cardiology will follow with you Thank you for your consultation and please do not hesitate to contact us with any question or concern. Ananth Llanos MD Resident - Cardiology Associated attestation - Tierney Laws MD - 10/23/2022 10:05 PM CDT ATTENDING ATTESTATION NOTE I have seen and examined the patient with the resident and I agree with the findings and plan of care as documented by the resident. Patient with CVA found to have mobile mass on aortic side of the AV. Per family no prior hx of other medical issues. ON exam, normal cardiac sounds. Aortic valve mobile mass, aortic side Acute CVA Post lysis and mechanical thrombectomy Eval for infective endocarditis. Cultures pending. No systemic sings of infection. Also unusual site for bacterial vegetation (aortic side). Differential also includes ulk-mwkabeewv-hjdenbqagf-endocarditis (NBTE)/ Libman- Sachs vegetation. Follow up work for autoimmune disease (SLE, Anti phospholipid syndrome - thus far testing is negative. Consider also fibroelastoma. If infection ruled out, recommend anticoagulation. CTS consultation to discuss removal/ valve otherwise has normal function. Rest of plan as per the resident note. Date of Service: 10/23/22 Tierney Laws MD * Radames Hinkle MD - 10/21/2022 9:16 AM CDT Images from the original note were not included. Neurocritical Care Progress Note Consuelo Darby Age: [age] year old Date of : 1980 Date of Admission: 10/19/2022 Hospital Day: 3 Subjective History of Present Illness Consuelo Darby is a 41yo M who developed acute onset L sided weakness, L-sided sensory deficits, and dysarthria. L sided weakness resolved in route and dysarthria improved in route. On arrival patient noted to L gaze plasy, L hemainopsia, mild dysarthria, and extinction. NIHSS: 7. Patient was givenTNK and code IVR was activated. TICI2b revascularization of the R MCA M1 occlusion. 10/19: Cardene drip for maintaining SBP <140 post MT. 10/20: Taken for hemicrani with nsg. Interval History: No acute overnight events. Patient taken off of Levophed, Porpofol, and fentanyl. Switched to precedex for agitation. Saturating well on spontaneous mode. Objective BP 122/69 Pulse 102 Temp 99.2 ??F (37.3 ??C) (Axillary) Resp 19 Ht 1.626 m (5' 4 ) Wt 95.3 kg (210 lb) SpO2 95% Temp (30hrs) Max:100.4 ??F (38 ??C) Body mass index is 36.05 kg/m??. Exam - Neurologic Intubated, sedated on precedex Expressive aphasia Gaze preference right. 1/5 strength left arm and leg 5/5 strength right arm and leg Labs: Lab Results-Last 24 Hours Procedure Component Value Units Date/Time GLUCOSE - POINT OF CARE [[id number]] Collected: 10/22/22 0858 Order Status: Completed Specimen: Blood Updated: 10/22/22 0859 Glucose WB/POC 109 mg/dL Specimen Type Cap Fingerstick PLATELET COUNT AUTO CITRATED BLOOD [[id number]] (Normal) Collected: 10/22/22 0153 Order Status: Completed Specimen: Blood Updated: 10/22/22 0221 Platelet Count Citrated Blood 199 10??3/uL CBC W AUTO DIFFERENTIAL [[id number]] (Abnormal) Collected: 10/21/22 2316 Order Status: Completed Specimen: Blood Updated: 10/22/22 0026 WBC 18.4 10??3/uL RBC 2.62 10??6/uL Hemoglobin 8.1 g/dL Hematocrit 25.1 % MCV 95.8 fL MCH 30.9 pg MCHC 32.3 g/dL RDW-SD 48.6 fL RDW-CV 14.0 % Platelet Count -- Comment: Platelets are clumped, appear as decreased on the slide. A blue top citrated tube is required for a platelet count. Notified Shauna Martines RN at 1225 on 10/22/2022. MPV -- Comment: Unable to Report Immature Platelet Fraction -- Comment: Unable to Report nRBC Absolute 0.00 10??3/uL nRBC Auto 0.0 /100 WBC Neutrophils % 69.8 % Lymphocytes % 18.4 % Monocytes % 10.9 % Eosinophils % 0.1 % Basophil % 0.1 % Neutrophils Absolute 12.87 10??3/uL Lymphocyte Absolute 3.38 10??3/uL Monocytes Absolute 2.00 10??3/uL Eosinophils Absolute 0.01 10??3/uL Basophils Absolute 0.02 10??3/uL Immature Granulocytes % 0.7 % Immature Granulocytes Absolute 0.13 MAGNESIUM BLOOD [[id number]] (Normal) Collected: 10/21/222315 Order Status: Completed Specimen: Blood Updated: 10/21/222350 Magnesium 2.2 mg/dL PHOSPHORUS BLOOD [[id number]] (Abnormal) Collected: 10/21/222315 Order Status: Completed Specimen: Blood Updated: 10/21/222350 Phosphorus 2.7 mg/dL BASIC METABOLIC PANEL (CALCIUM TOTAL) [[id number]] (Abnormal) Collected: 10/21/222315 Order Status: Completed Specimen: Blood Updated: 10/21/222350 BUN 16 mg/dL Creatinine 0.65 mg/dL Sodium 142 mmol/L Potassium 3.7 mmol/L Chloride 111 mmol/L CO2 20 mmol/L Glucose 120 mg/dL Calcium 8.0 mg/dL Anion Gap 15 BUN/Creatinine Ratio 25 Osmolality Calculated 296 mOsm/kg eGFR by CKD-EPI >90 mL/min/1.73 m2 GLUCOSE - POINT OF CARE [[id number]] (Abnormal) Collected: 10/21/222317 Order Status: Completed Specimen: Blood Updated: 10/21/222322 Glucose WB/POC 171 mg/dL Specimen Type Venous PROTEIN S ACTIVITY [[id number]] (Abnormal) Collected: 08/11/23 0302 Order Status: Completed Specimen: Blood Updated: 10/21/22 2309 Protein S Activity 134 % Comment: INTERPRETIVE INFORMATION: Protein S, Functional Patients on warfarin may have decreased functional protein S values. Patients should be off warfarin therapy for two weeks for accurate measurement of functional protein S. Artificially increased functional protein S values may be due to heparin therapy or the presence of direct thrombin inhibitors or factor Xa inhibitors. Access complete set of age- and/or gender-specific reference intervals for this test in the [facility] Test Directory ([facility]). Performed By: [facility] [address] [place] [id number] [employer] Mounter: Boo Bond MD, PhD CLIA Number: [id number] PROTEIN C ACTIVITY [[id number]] Collected: 10/20/22301 Order Status: Completed Specimen: Blood Updated: 10/21/22 2244 Protein C Activity 150 % Comment: INTERPRETIVE INFORMATION: Protein C, Functional Patients [...] reference intervals for this test in the [facility] Test Directory ([facility]). Performed By: [facility] [address] [place] [id number] Microfilm Mounter: Boo Bond MD, PhD CLIA Number: [id number] GLUCOSE - POINT OF CARE [[id number]] (Abnormal) Collected: 10/21/221842 Order Status: Completed Specimen: Blood Updated: 10/21/22 184 Glucose WB/POC 129 mg/dL Specimen Type Cap Fingerstick GLUCOSE - POINT OF CARE [[id number]] (Abnormal) Collected: 10/21/22 1210 Order Status: Completed Specimen: Blood Updated: 10/21/22 1215 Glucose WB/POC 127 mg/dL Specimen Type Cap Fingerstick Imaging: CT ANGIO BRAIN NECK STROKE Result Date: 10/19/2022 IMPRESSION: 1. Occlusion of the distal M1 [...] Lonnie Rae MD on 10/19/2022 8:[address] BRAIN - Stroke Result Date: 10/19/2022 IMPRESSION: 1. No acute intracranial hemorrhage. 2. [...] Lonnie Rae MD on 10/19/2022 8:15 AM Hospital Problems on Admission: Right middle cerebral artery stroke (CMS/HCC) (POA: Unknown) Acute cerebrovascular accident (CVA) due to embolism of right middle cerebral artery (CMS/HCC) (POA: Yes) Nihss score 9 (POA: Yes) Received intravenous tissue plasminogen activator (tPA) in emergency department (POA: Yes) GERD (gastroesophageal reflux disease) (POA: Yes) Hemianopsia (POA: Yes) Weakness (POA: Yes) Left-sided sensory deficit present (POA: Yes) Gaze palsy (POA: Yes) Migraine (POA: Unknown) Hypertension (POA: Unknown) Assessment Consuelo Darby is a 41 year old female presenting with R gaze preference, L hemianopsia, L arm and leg hemiparesis, and L extinction. CTA with RMCA M1 occlsuion. S/P TNK and MT with TICI 2B recanalization. Admitted to neuroICU for post MT and post TNK monitoring. Plan Neurological EVD open at 0: drained ICP: CPP: R MCA M1 occlusion s/p MT with TICI 2B recanalization S/P TNK administration Malignant MCA syndrome Workup: - Repeat CTH 4 am 10/21 monitoring for increased brain swelling - S/P hemicrani on 10/20 with nsg Plan: - NSG following - Neurological checks q1hr - Pupillometer checks q1hr with recorded NPIs q1hr - ICP less than 22, SBP less than 160 - 3% HTS 250 cc bolus for ICP >22 for over 5 mins - Head of bed > 30?? - Avoid hypoglycemia, hyponatremia, and hyperthermia Hx Migraines - On Amytriptiline 50 mg BID and verapamil 120 mg daily at home. Continuing home medications Cardiovascular Pulse Min: 75 Max: 147, BP Min: 100/83 Max: 174/91 Hx Hypertension - On Metoprolol 25 mg BID at home resumed. - SBP goal < 160 ICP <22. No PRNs ordered at this time. Nursing staff told to call MD if consistently elevated blood pressures. Respiratory AHRF - Intubated after hemicrani on 10/20. - On spontaneous mode - Extubation tomorrow after monitoring for one more day. - Aspiration precautions - Elevate head of bed - Maintain oxygen saturation > 92% - Monitor for respiratory distress Renal/Electrolytes Intake/Output Summary (Last 24 hours) at 10/22/2022 0916 Last data filed at 10/22/2022 0751 Gross per 24 hour Intake 1383.86 ml Output 780 ml Net 603.86 ml No active issues - Monitor intake and output - Replete electrolytes as needed Infectious Disease Temp (24hrs), Av.3 ??F (37.4 ??C), Min:98.8 ??F (37.1 ??C), Max:100 ??F (37.8 ??C) No active issues - Monitor for fevers - Ramirez culture if febrile Gastrointestinal Hx GERD - Lansoprozole 30 mg ordered. - Diet: Trickle feeds - GI ppx: Lansoprozole - Last BM: prior to admission but has not received bowel regimen yet due to surgery yesterday. - BM regimen: senna and miralax started today Endocrine Patient was taking oral contraceptive home medication. - A1c 6.0 - Accuchecks + SSI Hematology Recent Labs Component Name 10/21/22 2316 10/21/22 0753 WBC 18.4* 18.6* HGB 8.1* 9.4* HCT 25.1* 27.9* PLTCOUNT - 259 No active issues DVT ppx: SCDs, Lovenox on 10/22 per nsg. Hypercoaguable workup per stroke team. Musculoskeletal No active issues Disposition - PT/OT pending Feeds/Fluids: Tube Feeds Analgesia: fentanyl push Sedation: precedex Thromboprophylaxis: scd, lovenox held till 10/22 post procedure per nsg HOB: HOB 30 degrees Ulcer Ppx: Lansozprozole 30 Glucose: ssi and accuchecks SBT: n/a BR: senna and miralax Indwelling lines: 2 PIVs and art line and ett De-escalation: ICU for at least 72 hours Family: updated at bedside Radames Hinkle MD Neurology Resident. [facility]. Associated attestation - Dary Garvey MD - 10/22/2022 4:29 PM CDT Please link to my note * Kirk Munguia, TIO/LD - 10/21/2022 8:49 AM CDTAssociated Order(s): IP CONSULT TO NUTRITIONAL SERV Clinical Nutrition Assessment Brief Synopsis: Patient is at Nutrition Risk; Specific criteria can be found in assessment below Nutrition Plan: Continue NPO Start Tube Feeding Pt receiving propofol at 22.87 ml/hr, providing 604 kcal/day. When On Propofol at 22.87ml/hr Vital High Protein at goal of 20 ml/hr +3 pkt of prostat Provides 780 kcal, 87 g protein, 84 g carbohydrate, 401 ml free water +50 ml q 6 hrs free water flush or per MD if on IVF +200 ml q4 hrs free water flush or per MD if not on additional fluids Start feeding rate at 20ml/hr, increase rate by 20ml/hr QD until goal met. When Off Propofol Vital High Protein at goal of 55 ml/hr. Provides 1320 kcal, 115 g protein, 148 g carbohydrate, 1103 ml free water +50 ml q 6 hrs free water flush or per MD if on IVF +100 ml q4 hrs free water flush or per MD if not on additional fluids Start feeding rate at 20ml/hr, increase rate by 20ml/hr QD until goal met. Recommendations to Physician: Start TF at 20 ml/hr, advance 20 ml q 24 hrs to be at goal by day 4 of intubation. *ESPEN guidelines recommend slow advancement rate for ICU patients* Comments: Consulted per vent protocol. Pt remains intubated and receiving propofol at 22.87 ml/hr, providing 604 kcal/day. Currently on TF Vital High Protein at 20ml/hr. See TF recs above for both onand off propofol. Unable to meet protein goal d/t high propofol rate. 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 On daily Senna. Labs reviewed, noted elevated K (4.8). RD to follow up per clinical nutrition guidelines. Assessment: Med/Surg History and Clinical Diagnoses: 41yo M who developed acute onset L sided weakness, L-sidedsensory deficits, and dysarthria. L sided weakness resolved in route and dysarthria improved in route. On arrival patient noted to L gaze plasy, L hemainopsia, mild dysarthria, and extinction. Height: 162.6 cm (5' 4 ) Weight: 95.3 kg (210 lb) BMI: Body mass index is 36.05 kg/m??. BMI Range: Severely Obese Class 2 IBW/lb (Calculated) Female: 120, Recent Weights/Methods 12/09/2018 0804 01/09/2020 1050 01/10/2021 1117 08/25/2021 0819 02/08/2022 1532 10/19/2022 0803 10/19/2022 0827 10/20/2022 1400 Weight: 81.6 kg (180 lb) 86.5 kg (190 lb 9.6 oz) 80 kg (176 lb 6.4 oz) 84.8 kg (187 lb) 93.3 kg (205 lb 11.2 oz) 95.3 kg (210 lb 1.3 oz) 95.3 kg (210 lb 1.3 oz) 95.3 kg (210 lb) Weight Method (Utilize Scales): Stated -- -- Standing -- -- Bedscale -- Wt Comments: monitoring Diet order accuracy Current diet order: NPO Current tube feeding order: vital HP @20ml/hr Nutrition recommendation: alter/change nutrition order P.O.Intake for the past 48 hrs: No data recorded Supplement(s) Consumed- Last 48 hours None Food Allergies: No known food allergies GI Concerns: None Chewing/Swallowing: Other (Comment) (has not been assessed by SIGNALING PROJECT ENGINEER) Pain affectingintake: No Estimated Needs: KCAL: 3989-1510 (20-25kcal/kg IBW) Protein (g): >110 (>2g/kg IBW) Fluid (ml): 1 ml/kcal Needs based on: Kcal/kg- (Comment) (55kcal/kg of IBW) Recommended Access Route: TF Laboratory values: Recent Labs Component Name 10/21/22 0459 10/20/22 0302 10/19/22 0824 10/19/22 0808 06/15/22 0757 12/09/18 0812 07/25/18205503/01/16 0817 0000 BUN 12 6* 13 - 12 10 7 9 - CREATININE 0.64 0.50* 0.84 - 0.74 0.82 0.93 0.60 - NA 142 138 139 - 138 - - - - POTASSIUM 4.8* 3.6 4.2 - 5.1* 3.8 3.8 3.6 - CL 115* 108* 108* - 107 - - - - CO2 16* 21* 21* - 23 24 21* 21* - GLUCOSE 169* 140* 109 - 104 120* 105 83 - CALCIUM 8.2* 8.2* 8.9 - 8.9 9.4 9.2 8.1* - PROT - - 7.7 - 7.5 - - - - ALB - - 3.5 - 3.6 - - - - TBILI - - 0.1* - 0.1* - - - - ALKPHOS - - 52 - 44 56 52 111 - ALT - - 16 - 9 17 12* 21 - AST - - 19 - 17 18 20 25 - ANIONGAP 16 13 14 - 13 12 11 10 - BCR 19 12 15 - 16 - - - - OSMOLALITY 298 286 289 - 286 - - - - AGRATIO - - 0.8* - 0.9* - - - - EGFR >90 >90 >90 - >90 >60 >60 >60 - EGFRAFR - - - - - >60 >60 >60 - - = values in this interval not displayed. Medications: Current Facility-Administered Medications Medication ??? *Hold/Avoid Medication ??? *Hold/Avoid Medication ??? 0.9% NaCl injection 3 mL And ??? 0.9% NaCl injection 1-10 mL ??? 0.9% NaCl injection 3 mL And ??? 0.9% NaCl injection 3 mL ??? artificial tears ophthalmic ointment ??? chlorhexidine (Peridex) 0.12 % oral solution 15 mL ??? dextrose 10 % IV bolus Or ??? dextrose 10 % IV bolus ??? fentaNYL (PF) (Sublimaze) injection 50 mcg ??? glucagon (Glucagen) injection 1 mg ??? glucose (Diabetic Use) (Dex4 Glucose) oral liquid ??? glucose (Diabetic Use) oral gel ??? glucose chew tablet 4 tablet ??? lansoprazole (Prevacid) suspension 30 mg ??? loratadine (Claritin) tablet 10 mg ??? metoprolol tartrate IR (Lopressor) tablet 25 mg ??? norepinephrine (Levophed) 8 mg/250 ml D5 infusion premix ??? phenylephrine 100 mcg/mL injection ADS Med ??? polyethylene glycol 3350 (Miralax) packet 17 g ??? potassium - sodium phosphates (Phos-Nak) powder 2 packet ??? senna-docusate (Senokot-S) tablet 1 tablet ??? tamsulosin (Flomax) capsule 0.4 mg ??? vancomycin (Vancocin) injection ??? verapamil (Isoptin) tablet 40 mg ??? vitamin D3 (Cholecalciferol) 25 MCG (1000 UNITS) tablet 2,000 Units Skin/Wound: WDL Education needed: Stroke Nutrition Therapy Education Provided: Prior to Discharge Nutrition Care Process (1) Nutrition Diagnostic Statement: Inadequate oral intake related to:: decreased ability to consume or tolerate food and/or fluids due to illness as evidenced by:: oral intake insufficient to meet estimated requirements Nutrition Diagnostic Statement Progress: Nutrition problem continues Nutrition Intervention: Meals and snacks: Monitoring: TF, BM, labs, meds, weight Evaluation: Nutrition Goal: Total intake will meet estimated nutrient needs Nutrition Goal Timeframe: Throughout stay Nutrition Goal Progress: Continue with current goal Ascom: [id number] Kirk Munguia Clinical Dietitian * Radames Hinkle MD - 10/20/2022 4:32 PM CDT Images from the original note were not included. Neurocritical Care Progress Note Consuelo Darby Age: [age] year old Date of : 1980 Date of Admission: 10/19/2022 Hospital Day: 1 Subjective History of Present Illness Consuelo Darby is a 41yo M who developed acute onset L sided weakness, L-sided sensory deficits, and dysarthria. L sided weakness resolved in route and dysarthria improved in route. On arrival patient noted to L gaze plasy, L hemainopsia, mild dysarthria, and extinction. NIHSS: 7. Patient was givenTNK and code IVR was activated. TICI2b revascularization of the R MCA M1 occlusion. 10/19: Cardene drip for maintaining SBP <140 post MT. Interval History: Overnight no acute events. Patient with CTH this AM demonstrating large infarction in L MCA territory with 4 mm midline shift. NGT placed for administration of trickle tube feeds and medications. Cardene drip stopped. BP parameters changed to SBP<180. NSG consulted for hemicrani watch. Offering hemicraniectomy for family due to significant midline shift within first 24 hours, they are willing to proceed with the procedure. Objective BP 127/69 Pulse 105 Temp 99.3 ??F (37.4 ??C) (Axillary) Resp 11 Ht 1.626 m (5' 4 ) Wt 95.3 kg (210 lb) SpO2 98% Temp (30hrs) Max:99.3 ??F (37.4 ??C) Body mass index is 36.05 kg/m??. Exam - Neurologic Awake intermittently Intermittently follows commands Expressive aphasia Gaze preference towards right unable to be overcome. 1/5 strength left arm and leg 5/5 strength right arm and leg Labs: Lab Results-Last 24 Hours Procedure Component Value Units Date/Time HGB HCT PANEL [[id number]] Updated: 10/20/22 1512 Order Status: Sent Specimen: Blood HEMOGLOBIN A1C [[id number]] (Abnormal) Collected: 10/20/22 1015 Order Status: Completed Specimen: Blood Updated: 10/20/22 1415 Hemoglobin A1c 6.0 % Estimated Average Glucose 126 mg/dL Comment: HbA1c Interpretation: Normal : < 5.7% Pre-diabetes: 5.7-6.4% Diabetes: Equal to or greater than 6.5% Test results diagnostic of diabetes should be repeated for confirmation. Treatment target values recommended by ADA and other clinical organizations should be used to evaluate metabolic control in patients. Reference: [place] [employer], Standards of Care in Diabetes -2020 In patients 70 years and older consider HbA1c target range of 7.0-7.5% (Reference: Ronal David et al. JAMDA. 2012) The Sebia assay for the measurement of HbA1c is a National Glycohemoglobin Standardization Program (NGSP) certified method. GLUCOSE - POINT OF CARE [[id number]] (Abnormal) Collected: 10/20/221131 Order Status: Completed Specimen: Blood Updated: 10/20/221141 Glucose WB/POC 124 mg/dL Specimen Type Cap Fingerstick LUPUS ANTICOAGULANT PANEL [[id number]] Collected: 10/20/22301 Order Status: Completed Specimen: Blood Updated: 10/20/221134 APTT 24.4 Seconds PT 13.6 Seconds INR 1.1 STACLOT-LA Buffer 37.8 Seconds STACLOT-LA Phospholipid 33.2 Seconds STACLOT-LA Delta 4.6 Seconds Interpretation STACLOT-LA Negative Comment: Up to 15-20% of patients with lupus anticoagulant associated with antiphospholipid antibody syndrome (APAS) will have negative STACLOT-LA results. For these patients we recommend additional testing to include the Dilute Edgar Viper Venom Time (DRVVT) test. Immunoassay measurements of anti- cardiolipin and anti-beta-2 glycoprotein 1 are recommended if the DRVVT, and STACLOT-LA tests are negative and there is clinical suspicion of APAS. GLUCOSE - POINT OF CARE [[id number]] (Abnormal) Collected: 10/20/22743 Order Status: Completed Specimen: Blood Updated: 10/20/22753 Glucose WB/POC 32 mg/dL Specimen Type Cap Fingerstick GLUCOSE - POINT OF CARE [[id number]] (Abnormal) Collected: 10/20/22746 Order Status: Completed Specimen: Blood Updated: 10/20/22753 Glucose WB/POC 118 mg/dL Specimen Type Cap Fingerstick BASIC METABOLIC PANEL (CALCIUM TOTAL) [[id number]] (Abnormal) Collected: 10/20/22301 Order Status: Completed Specimen: Blood Updated: 10/20/22335 BUN 6 mg/dL Creatinine 0.50 mg/dL Sodium 138 mmol/L Potassium 3.6 mmol/L Chloride 108 mmol/L CO2 21 mmol/L Glucose 140 mg/dL Calcium 8.2 mg/dL Anion Gap 13 BUN/Creatinine Ratio 12 Osmolality Calculated 286 mOsm/kg eGFR by CKD-EPI >90 mL/min/1.73 m2 LIPID PROFILE [[id number]] (Abnormal) Collected: 10/20/22301 Order Status: Completed Specimen: Blood Updated: 10/20/22333 Cholesterol Total 173 mg/dL HDL 42 mg/dL Comment: ATP III Classification of HDL Cholesterol: <40 mg/dL: Considered a major risk factor. >60 mg/dL: Considered a negative risk factor. LDL Calculated 91 mg/dL Comment: ATP III Classification of LDL Cholesterol: <100 mg/dL: Optimal 100 - 129 mg/dL: Near Optimal/Above Optimal 130 - 159 mg/dL: Borderline High 160 - 189 mg/dL: High >190 mg/dL: Very High Triglycerides 201 mg/dL Comment: ATP III Classification of Triglycerides: <150 mg/dL: Normal 150 - 199 mg/dL: Borderline High 200 - 400 mg/dL: High >500 mg/dL: Very High CBC W/O DIFFERENTIAL [[id number]] (Abnormal) Collected: 10/20/22301 Order Status: Completed Specimen: Blood Updated: 10/20/22329 WBC 19.5 10??3/uL RBC 3.83 10??6/uL Hemoglobin 11.9 g/dL Hematocrit 35.4 % MCV 92.4 fL MCH 31.1 pg MCHC 33.6 g/dL RDW-SD 45.7 fL RDW-CV 13.5 % Platelet Count 292 10??3/uL MPV 9.9 fL nRBC Absolute 0.00 10??3/uL nRBC Auto 0.0 /100 WBC PROTEIN S ACTIVITY [[id number]] Collected: 10/20/22301 Order Status: Sent Specimen: Blood Updated: 10/20/22308 PROTEIN C ACTIVITY [[id number]] Collected: 10/20/22301 Order Status: Sent Specimen: Blood Updated: 10/20/22308 GLUCOSE - POINT OF CARE [[id number]] (Abnormal) Collected: 10/19/221949 Order Status: Completed Specimen: Blood Updated: 10/19/221949 Glucose WB/POC 140 mg/dL Specimen Type Cap Fingerstick Imaging: CT ANGIO BRAIN NECK STROKE Result Date: 10/19/2022 IMPRESSION: 1. Occlusion of the distal M1 [...] Lonnie Rae MD on 10/19/2022 8:[address] BRAIN - Stroke Result Date: 10/19/2022 IMPRESSION: 1. No acute intracranial hemorrhage. 2. [...] Lonnie Rae MD on 10/19/2022 8:15 AM Hospital Problems on Admission: Acute cerebrovascular accident (CVA) due to embolism of right middle cerebral artery (CMS/HCC) (POA: Yes) Nihss score 9 (POA: Yes) Received intravenous tissue plasminogen activator (tPA) in emergency department (POA: Yes) GERD (gastroesophageal reflux disease) (POA: Yes) Hemianopsia (POA: Yes) Weakness (POA: Yes) Left-sided sensory deficit present (POA: Yes) Gaze palsy (POA: Yes) Migraine (POA: Unknown) Hypertension (POA: Unknown) Assessment Consuelo Darby is a 41 year old female presenting with R gaze preference, L hemianopsia, L arm and leg hemiparesis, and L extinction. CTA with RMCA M1 occlsuion. S/P TNK and MT with TICI 2B recanalization. Admitted to neuroICU for post MT and post TNK monitoring. Plan Neurological EVD open at 0: drained ICP: CPP: R MCA M1 occlusion s/p MT with TICI 2B recanalization S/P TNK administration Malignant MCA syndrome Workup: - CTH 24 hours post MT with significant infarction of R MCA territory and 4 mm midline shift. - MRI brain w/o contrast ordered by stroke team. - Protein C, S, Factor 5, SARAH, and Complement C3 pending. - Stat CT head for any change in neurological examination Plan: - NSG consulted for hemicrani watch. Offered hemicraniectomy to family this afternoon in light of significant midline shift. They are willing to proceed with the procedure - Neurological checks q1hr - Pupillometer checks q1hr with recorded NPIs q1hr - Aspirin holding - Head of bed > 30?? - Avoid hypoglycemia, hyponatremia, and hyperthermia Hx Migraines - On Amytriptiline 50 mg BID and verapamil 120 mg daily at home. Restarted medications. Cardiovascular Pulse Min: 94 Max: 147, BP Min: 120/73 Max: 174/91 Hx Hypertension - On Metoprolol 25 mg BID at home resumed. - SBP goal < 180. No PRNs ordered. If significantly elevated blood pressure, please call overnight MD to evaluate clinically for herniation. Respiratory - Aspiration precautions - Elevate head of bed - Maintain oxygen saturation > 92% - Monitor for respiratory distress Renal/Electrolytes Intake/Output Summary (Last 24 hours) at 10/20/2022 1632 Last data filed at 10/20/2022 1530 Gross per 24 hour Intake 3237.44 ml Output 6650 ml Net -3412.56 ml No active issues - Monitor intake and output - Replete electrolytes as needed Infectious Disease Temp (24hrs), Av.4 ??F (36.9 ??C), Min:97.6 ??F (36.4 ??C), Max:99.3 ??F (37.4 ??C) No active issues - Monitor for fevers - Ramirez culture if febrile Gastrointestinal Hx GERD - Protonix 40 mg home medication ordered. - Diet: Trickle feeds - GI ppx: Restarted Protonix 40 mg home medication - Last BM: prior to admission - BM regimen: senna and miralax started today Endocrine Patient was taking oral contraceptive home medication. - A1c 6.0 - Accuchecks + SSI Hematology Recent Labs Component Name 10/20/22 0302 WBC 19.5* HGB 11.9* HCT 35.4 PLTCOUNT 292 No active issues DVT ppx: SCDs Lupus anticoagulant negative. Protein C, S, Factor 5, SARAH, and Complement C3 pending. Musculoskeletal No active issues Disposition - PT/OT pending Feeds/Fluids: Tube Feeds Analgesia: tylenol IV for back pain Sedation: n/a Thromboprophylaxis: scd, lovenox HOB: HOB 30 degrees Ulcer Ppx: protonix 40 Glucose: ssi and accuchecks SBT: n/a BR: senna and miralax Indwelling lines: 2 PIVs and art line De-escalation: ICU for at least 72 hours Family: updated at bedside Radames Hinkle MD Neurology Resident. [facility]. Associated attestation - Dary Garvey MD - 10/20/2022 5:29 PM CDT Neurologic Critical Care Attending I spent 40 minutes in full attendance with this critically-ill patient. Time spent was exclusive ofseparately billed procedures, treating other patients, and teaching time. I have reviewed and agreewith resident/medical student documentation. The patient is at high risk for complications and morbidity or mortality. The patient is criticallyill with vital organ impairment of failure with high probability of imminent or life-threatening deterioration in the patient's condition. Critical care was necessary to treat or prevent life-threatening deterioration of the following: Acute cerebrovascular accident (CVA) due to embolism of right middle cerebral artery (CMS/HCC) (POA: Yes) Nihss score 9 (POA: Yes) Received intravenous tissue plasminogen activator (tPA) in emergency department (POA: Yes) GERD (gastroesophageal reflux disease) (POA: Yes) Hemianopsia (POA: Yes) Weakness (POA: Yes) Left-sided sensory deficit present (POA: Yes) Gaze palsy (POA: Yes) Migraine (POA: Unknown) Hypertension (POA: Unknown) The plan of care other than mentioned in resident/medical student note consists of: Malignant Rt MCA syndrome. Brain compression Secondary storke workup/prevention per stroke team NSGY consulted for [facility] watch Repeat CTH if exam change and give mannitol 1gm/kg q1NC and NPi HTN. Permissive HTN to allow perfusion for now. SBP CAP 180 unless clinical signs of herniation Dysphagia. NG and start TF Dary Garvey MD Neurologic Critical Care Attending 10/20/2022 * Kamari Mcfarlane MD - 10/20/2022 2:24 PM CDTAssociated Order(s): IP CONSULT TO NEUROSURGERY Neurosurgery Consult Note Name: Consuelo Darby :1980 Date of Admission:10/19/2022 Date of Consult::24 PM Time images reviewed: 2:30 PM Time patient examined: 2:30 PM Reason for consult: Hemicrani watch Consult Requested by: Stroke HISTORY OF PRESENT ILLNESS (HPI): Patient is a 41 year old female with no significant PMH who presented on 10/19 with acute L. Weakness, dysarthria. She was found to have R. M1 occlusion and is now s/p TNK and IVR revascularization. Neurosurgery was consulted on stroke day 2 for hemicrani watch. Patient medications include no blood thinners. [facility] NEUROSURGERY HIGH RISK VARIABLES Severe Brain Conditions - Compression of brain and Cerebral edema and Encephalopathy - Encephalopathy, unspecified Were these Present On Admission? Unknown Past Medical History: Diagnosis Date ??? Abdominal [...] COLONOSCOPY REMOVAL OR ABLATION TUMOR/POLYP/LESION (ANY METHOD) Current Facility-Administered Medications Medication ??? *Hold/Avoid Medication ??? *Hold/Avoid Medication ??? 0.9% NaCl injection 3 mL And ??? 0.9% NaCl injection 1-10 mL ??? 0.9% NaCl injection 3 mL And ??? 0.9% NaCl injection 3 mL ??? amitriptyline (Elavil) tablet 100 mg ??? enoxaparin (Lovenox) injection 40 mg ??? iopamidol (Isovue 370) 76 % contrast ??? lansoprazole (Prevacid) suspension 30 mg ??? [START ON 10/21/2022] loratadine (Claritin) tablet 10 mg ??? metoprolol tartrate IR (Lopressor) tablet 25 mg ??? tamsulosin (Flomax) capsule 0.4 mg ??? verapamil CR (Isoptin-SR) tablet 120 mg ??? [START ON 10/21/2022] vitamin D3 (Cholecalciferol) 25 MCG (1000 UNITS) tablet 2,000 Units Allergies Allergen Reactions ??? 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 Smoking status: Former Packs/day: 0.50 Types: Cigarettes Quit date: 2015 Years since quittin.6 ??? Smokeless tobacco: Never Vaping Use ??? Vaping Use: Never used Substance Use Topics ??? Alcohol use: No Alcohol/week: 0.0 - 1.7 standard drinks of alcohol Comment: Occasional Family History Problem Relation Name Age of Onset ??? Cancer Maternal Grandfather Lung ??? Diabetes Maternal Grandfather ??? Diabetes Maternal Grandmother ??? Hypertension Mother ??? Thyroid Disease Mother PHYSICAL EXAM BP 132/69 Pulse 103 Temp 99.1 ??F (37.3 ??C) (Oral) Resp 18 Ht 1.626 m (5' 4 ) Wt 95.3 kg(210 lb 1.3 oz) SpO2 98% General: awake, somnolent, falls asleep while being examined Neuro: GCS: 10 E3V1M6, ou=r, right gaze deviation, left facial droop, left weakness, follows commands in RUE and RLE. LABORATORY WBC: 20 Plt: 292 PT/PTT: WNL RADIOLOGY IMPRESSION: ?? Findings consistent with a large acute area of infarction in the right cerebral hemisphere in the distribution of the right middle cerebral artery with mass effect and approximately 4 mm of midline shift right to left. There is no definite hemorrhagic transformation. There is hyperdensity of the right middle cerebral artery likely representing thrombus. Clinical correlation and continued close interval follow-up are recommended. ?? Assessment/ Plan: Consuelo Darby is a 41 year old female with no significant PMH who presents with right M1 occlusion s/p TNK, MT on 10/19. Patient had CT scan this AM and she was noted to have 4 mm midline shift (from 0 mm yesterday). Patient currently GCS10, aphasic and somnolent but following commands briskly. Given amount of midline shift and somnolence, patient is at high risk of further neurologic decline. - Plan to OR for right decompressive hemicraniectomy, intracranial pressure monitor placement, possible external ventricular drain Case discussed with Dr. Marquez at 5 PM. Kamari Mcfarlane MD 10/20/2022 2:24 PM Associated attestation - Jazz Marquez MD - 10/21/2022 6:34 PM CDT ATTENDING ATTESTATION: I performed a history and physical examination of the patient and discussed management with Dr. Mcfarlane. I reviewed the resident's note and agree with the documented findings and plan of care. Jazz Marquez MD 10/20/2022 6:33 PM * Elida Yancey RN - 10/20/2022 8:51 AM CDTAssociated Order(s): IP CONSULT TO PHYSICAL MED AND REHAB [facility] Rehab has initiated an evaluation per stroke protocol. Will continue to follow for medical stability and tolerance/participation in therapies. Thank you for the referral. Elida Yancey RN, BSN Clinical Liaison [facility] [phone] * Stacy Lopez RD/OMAIRA - 10/20/2022 8:48 AM CDTAssociated Order(s): IP CONSULT TO NUTRITIONAL SERV Clinical Nutrition Assessment Brief Synopsis: Patient is at Nutrition Risk; Specific criteria can be found in assessment below Nutrition Plan: NPO until swallow evaluation Should patient fail swallow eval, recommend: Jevity 1.5 at 45 ml/hr. Provides 1620 kcal, 69 g protein, 233 g carbohydrate, 821 ml free water. +100 ml q4 hrs free water flush or per MD if not on additional fluids Recommendations to Physician: None Comments: Pt consulted per stroke protocol. Per neurology documentation, patient had ischemic stroke. Patient has not had swallow assessment yet this admission, recommend diet per ST. Pt unable to sit up during time of swallow assessment. No PO intake since prior to admit. See above for TF recommendations if needed. Elevated TG, no A1c in EMR. 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 Assessment: Med/Surg History and Clinical Diagnoses: 41yo M who developed acute onset L sided weakness, L-sidedsensory deficits, and dysarthria. L sided weakness resolved in route and dysarthria improved in route. On arrival patient noted to L gaze plasy, L hemainopsia, mild dysarthria, and extinction. Height: 162.6 cm (5' 4 ) Weight: 95.3 kg (210 lb 1.3 oz) BMI: Body mass index is 36.06 kg/m??. BMI Range: Obese Class 1 IBW/lb (Calculated) Female: 120, Recent Weights/Methods 12/04/2018 0935 12/09/2018 0804 01/09/2020 1050 01/10/2021 1117 08/25/2021 0819 02/08/2022 1532 10/19/2022 0803 10/19/2022 0827 Weight: 83.7 kg (184 lb 8 oz) 81.6 kg (180 lb) 86.5 kg (190 lb 9.6 oz) 80 kg (176 lb 6.4 oz) 84.8 kg (187 lb) 93.3 kg (205 lb 11.2 oz) 95.3 kg (210 lb 1.3 oz) 95.3 kg (210 lb 1.3 oz) Weight Method (Utilize Scales): -- Stated -- -- Standing -- -- Bedscale Wt Comments: reviewed, weight trending up from previous years Diet order accuracy Current diet order: NPO Nutrition recommendation: alter/change nutrition order P.O.Intake for the past 48 hrs: No data recorded Food Allergies: No known food allergies GI Concerns: None Chewing/Swallowing: Other (Comment) (has not been assessed by SIGNALING PROJECT ENGINEER) Pain affectingintake: No Estimated Needs: KCAL: 1650 (30kcal/kg of IBW) Protein (g): 55-66 (1.0-1.2gm/kg of IBW) Fluid (ml): 1 ml/kcal Needs based on: Kcal/kg- (Comment) (55kcal/kg of IBW) Recommended Access Route: PO Laboratory values: Recent Labs Component Name 10/20/22 0302 10/19/22 0824 10/19/22 0808 06/15/22 0757 12/09/18 0807/25/18205503/01/16 08 BUN 6* 13 - 12 10 7 9 CREATININE 0.50* 0.84 - 0.74 0.82 0.93 0.60 NA 138 139 - 138 - - - POTASSIUM 3.6 4.2 - 5.1* 3.8 3.8 3.6 CL 108* 108* - 107 - - - CO2 21* 21* - 23 24 21* 21* GLUCOSE 140* 109 - 104 120* 105 83 CALCIUM 8.2* 8.9 - 8.9 9.4 9.2 8.1* PROT - 7.7 - 7.5 - - - ALB - 3.5 - 3.6 - - - TBILI - 0.1* - 0.1* - - - ALKPHOS - 52 - 44 56 52 111 ALT - 16 - 9 17 12* 21 AST - 19 - 17 18 20 25 ANIONGAP 13 14 - 13 12 11 10 BCR 12 - 16 - - - OSMOLALITY 286 289 - 286 - - - AGRATIO - 0.8* - 0.9* - - - EGFR >90 >90 >90 >90 >60 >60 >60 EGFRAFR - - - - >60 >60 >60 Medications: Current Facility-Administered Medications Medication ??? *Hold/Avoid Medication ??? *Hold/Avoid Medication ??? 0.9% NaCl infusion ??? 0.9% NaCl injection 3 mL And ??? 0.9% NaCl injection 1-10 mL ??? 0.9% NaCl injection 3 mL And ??? 0.9% NaCl injection 3 mL ??? amitriptyline (Elavil) tablet 100 mg ??? labetalol (Normodyne; Trandate) injection 10 mg Or ??? hydrALAZINE (Apresoline) injection 10 mg ??? iopamidol (Isovue 370) 76 % contrast ??? loratadine (Claritin) tablet 10 mg ??? metoprolol tartrate IR (Lopressor) tablet 25 mg ??? niCARdipine (Cardene) 20 mg in 0.9% NaCl 200 mL infusion ??? pantoprazole EC (Protonix) tablet 40 mg ??? verapamil CR (Isoptin-SR) tablet 120 mg ??? vitamin D3 (Cholecalciferol) 25 MCG (1000 UNITS) tablet 2,000 Units Skin/Wound: WDL Education needed: Stroke Nutrition Therapy Education Provided: Prior to Discharge Nutrition Care Process (1) Nutrition Diagnostic Statement: Inadequate oral intake related to:: decreased ability to consume or tolerate food and/or fluids due to illness as evidenced by:: oral intake insufficient to meet estimated requirements Nutrition Diagnostic Statement Progress: New diagnostic statement established Nutrition Intervention: Meals and snacks: Monitoring: GI, PO intake, WT, labs, medications Evaluation: Nutrition Goal: Total intake will meet estimated nutrient needs Nutrition Goal Timeframe: Throughout stay Nutrition Goal Progress: New goal established Ascom [id number] * Radames Hinkle MD - 10/19/2022 3:48 PM CDT Images from the original note were not included. Neurocritical Care Progress Note Consuelo Darby Age: [age] year old Date of : 1980 Date of Admission: 10/19/2022 Hospital Day: 0 Subjective History of Present Illness Consuelo Darby is a 41yo M who developed acute onset L sided weakness, L-sided sensory deficits, and dysarthria. L sided weakness resolved in route and dysarthria improved in route. On arrival patient noted to L gaze plasy, L hemainopsia, mild dysarthria, and extinction. NIHSS: 7. Patient was givenTNK and code IVR was activated. TICI2b revascularization of the R MCA M1 occlusion. Interval History: Admitted to NeuroICU for post tnk and thrombectomy monitoring. Started on cardene drip for BP abovegoal of SBP<140 this afternoon that was unable to be controlled with prn pushes. Patient needs to lay flat so SIGNALING PROJECT ENGINEER swallow assessment not possible for the time being. Objective BP 126/84 Pulse (!) 112 Temp 98.4 ??F (36.9 ??C) (Oral) Resp 27 Ht 1.626 m (5' 4 ) Wt 95.3 kg (210 lb 1.3 oz) SpO2 98% Temp (30hrs) Max:98.5 ??F (36.9 ??C) Body mass index is 36.06 kg/m??. Exam - Neurologic Cortical Function Mental Status Awake, alert, intermittently follows commands. Orientation Unable to assess due to aphasia. Language Expressive aphasia. Able to comprehend. Unable to repeat. Visual Powell IGaze preference for right side. Neglect Intermittently neglects left side Cranial Nerves II Pupils 3mm and bilaterally reactive to light. Fundoscopic exam not performed. VIII Hearing is intact bilaterally to finger rub. III/IV/ L gaze palsy and L hemianopsia IX/X Palate elevated symmetrically without phonation abnormalities noted. V Facial sensation symmetric to light touch and intact bilaterally. Corneal reflex not examined. XIHead turning and shoulder shrug are intact. VII No facial palsy noted. XII Tongue is midline with normal movements and no atrophy noted. Motor Function Movement No abnormalities noted Bulk No abnormalities noted Tone No abnormalities noted Proximal Upper Distal Upper Proximal Lower Distal Lower Right 5/5 5/5 5/5 5/5 Left 1/5 1/5 1/5 1/5 Muscle Stretch Reflexes BI TRI BR PAT ACH TOES Right 2 2 2 2 2 Down Left 2 2 2 2 2 Down Sensory Light Touch Not tested Noxious Stimuli Symmetric and bilateral Temperature Not tested Pallesthesia Not tested Cerebellar REYNOLD due to patient condition Gait Deferred Labs: Lab Results-Last 24 Hours Procedure Component Value Units Date/Time URINE DRUG SCREEN IMMUNOASSAY [[id number]] (Normal) Collected: 10/19/22 1410 Order Status: Completed Specimen: Urine Updated: 10/19/22 1448 Amphetamines Screen Urine Negative Barbiturates Screen Urine Negative Benzodiazepine Screen Urine Negative Opiates Urine Negative Cocaine Metabolites Urine Negative Phencyclidine Screen Urine Negative Cannabinoids Screen Urine Negative Methadone Screen Urine Negative Fentanyl Screen Urine Negative Narrative: The Urine Toxicology Screening Panel does not screen for Propoxyphene, Meprobamate, Carisoprodol, Trazodone, bpci-xqf-objofyb medications and/or volatiles (Acetone, Isopropanol, Methanol or Ethylene Glycol). Ethanol, Salicylate, Acetaminophen, Tricyclic Antidepressants and several therapeutic drugsmay be individually assayed in serum or plasma specimen. Toxicology testing by the [facility] is an aid to medical diagnosisand treatment of patients. No documented chain of custody was maintained. Results are intended to be used for clinical purposes only. HCG URINE QUALITATIVE [[id number]] (Normal) Collected: 10/19/220 Order Status: Completed Specimen: Urine Updated: 10/19/221428 Test Urine Negative PT-INR [facility] [[id number]] (Normal) Collected: 10/19/22823 Order Status: Completed Specimen: Blood Updated: 10/19/22903 PT 12.3 Seconds INR 0.9 Comment: The suggested therapeutic range for standard coumadin (warfarin) therapy is an INR of 2.0-3.0. For high-risk patients (Mechanical Mitral Valve Prosthesis, etc.), the suggested prophylactic therapeutic range is an INR of 2.5-3.5. TROPONIN-I HIGH SENSITIVE BASELINE + 1HR [[id number]] Order Status: Sent Specimen: Blood HEMOGLOBIN A1C [[id number]] Order Status: Sent Specimen: Blood COMPREHENSIVE METABOLIC PANEL [[id number]] (Abnormal) Collected: 10/19/22823 Order Status: Completed Specimen: Blood Updated: 10/19/22856 BUN 13 mg/dL Creatinine 0.84 mg/dL Sodium 139 mmol/L Potassium 4.2 mmol/L Chloride 108 mmol/L CO2 21 mmol/L Glucose 109 mg/dL Calcium 8.9 mg/dL Protein Total 7.7 g/dL Albumin 3.5 g/dL Bilirubin Total 0.1 mg/dL Alkaline Phosphatase 52 U/L ALT 16 U/L AST 19 U/L Anion Gap 14 BUN/Creatinine Ratio 15 Osmolality Calculated 289 mOsm/kg Albumin/Globulin Ratio 0.8 eGFR by CKD-EPI >90 mL/min/1.73 m2 CBC W AUTO DIFFERENTIAL [[id number]] (Abnormal) Collected: 08/10/23 0824 Order Status: Completed Specimen: Blood Updated: 10/19/22 0839 WBC 10.9 10??3/uL RBC 4.73 10??6/uL Hemoglobin 14.4 g/dL Hematocrit 42.6 % MCV 90.1 fL MCH 30.4 pg MCHC 33.8 g/dL RDW-SD 43.4 fL RDW-CV 13.1 % Platelet Count 342 10??3/uL MPV 10.4 fL nRBC Absolute 0.00 10??3/uL nRBC Auto 0.0 /100 WBC Neutrophils % 67.3 % Lymphocytes % 23.9 % Monocytes % 6.4 % Eosinophils % 1.4 % Basophil % 0.6 % Neutrophils Absolute 7.33 10??3/uL Lymphocyte Absolute 2.61 10??3/uL Monocytes Absolute 0.70 10??3/uL Eosinophils Absolute 0.15 10??3/uL Basophils Absolute 0.07 10??3/uL Immature Granulocytes % 0.4 % Immature Granulocytes Absolute 0.04 HCG URINE QUALITATIVE [[id number]] Order Status: Canceled Specimen: Urine CREATININE - POCT INTERFACED [[id number]] (Normal) Collected: 10/19/22 0808 Order Status: Completed Specimen: Blood Updated: 10/19/22 0818 Creatinine POCT 0.78 mg/dL eGFR >90 mL/min/1.73 m2 GLUCOSE - POINT OF CARE [[id number]] Collected: 10/19/22 0756 Order Status: Completed Specimen: Blood Updated: 10/19/22 0801 Glucose WB/POC 105 mg/dL Specimen Type Cap Fingerstick Imaging: CT ANGIO BRAIN NECK STROKE Result Date: 10/19/2022 IMPRESSION: 1. Occlusion of the distal M1 [...] Lonnie Rae MD on 10/19/2022 8:[address] BRAIN - Stroke Result Date: 10/19/2022 IMPRESSION: 1. No acute intracranial hemorrhage. 2. [...] Lonnie Rae MD on 10/19/2022 8:15 AM Hospital Problems on Admission: Acute cerebrovascular accident (CVA) due to embolism of right middle cerebral artery (CMS/HCC) (POA: Yes) Nihss score 9 (POA: Yes) Received intravenous tissue plasminogen activator (tPA) in emergency department (POA: Yes) GERD (gastroesophageal reflux disease) (POA: Yes) Hemianopsia (POA: Yes) Weakness (POA: Yes) Left-sided sensory deficit present (POA: Yes) Gaze palsy (POA: Yes) Migraine (POA: Unknown) Hypertension (POA: Unknown) Assessment Consuelo Darby is a 41 year old female presenting with R gaze preference, L hemianopsia, L arm and leg hemiparesis, and L extinction. CTA with RMCA M1 occlsuion. S/P TNK and MT with TICI 2B recanalization. Admitted to neuroICU for post MT and post TNK monitoring. Plan Neurological EVD open at 0: drained ICP: CPP: R MCA M1 occlusion s/p MT with TICI 2B recanalization S/P TNK administration Workup: - CTH 24 hours post MT - MRI brain w/o contrast - protein c, s, lupus anticoagulant panel ordered - Stat CT head for any change in neurological examination Plan: - Strict BP goals per NeuroIR: MAP >70, SBP <140 - Post-tPA monitoring: for 24 hours - Neurological checks q1hr - Aspirin holding - Head of bed > 30?? - Avoid hypoglycemia, hyponatremia, and hyperthermia Hx Migraines - On Amytriptiline 50 mg BID and verapamil 120 mg daily at home. - holding as patient needs to lie flat and SIGNALING PROJECT ENGINEER cannot evaluate. Cardiovascular Pulse Min: 94 Max: 130, BP Min: 120/73 Max: 174/91 Hx Hypertension - On Metoprolol 25 mg BID at home - Holding as patient needs to lie flat and SIGNALING PROJECT ENGINEER cannot evaluate. Strict BP goal of SBP<140 and MAP>70 per neuroIR. BP unresponsive to multiple PRN pushes. Cardene drip initiated. Respiratory Hypoxemia - Requiring NC for adequate oxygen saturation - Will attempt to wean as patient's mentation improves. - Aspiration precautions - Elevate head of bed - Maintain oxygen saturation > 92% - Monitor for respiratory distress Renal/Electrolytes Intake/Output Summary (Last 24 hours) at 10/19/2022 1651 Last data filed at 10/19/2022 1400 Gross per 24 hour Intake 2400 ml Output 1400 ml Net 1000 ml No active issues - Monitor intake and output - Replete electrolytes as needed Infectious Disease Temp (24hrs), Av.1 ??F (36.7 ??C), Min:97.3 ??F (36.3 ??C), Max:98.5 ??F (36.9 ??C) No active issues - Monitor for fevers - Ramirez culture if febrile Gastrointestinal Hx GERD - Protonix 40 mg home medication ordered. - 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: pending - Diet:pending SIGNALING PROJECT ENGINEER swallow eval. IVF ordered till tomorrow afternoon in light of this. - GI ppx: not indicated - Last BM: - BM regimen: Endocrine Patient was taking oral contraceptive home medication. - f/u A1C - Accuchecks + SSI Hematology Recent Labs Component Name 10/19/22 0824 WBC 10.9* HGB 14.4 HCT 42.6 PLTCOUNT 342 No active issues DVT ppx: SCDs Protein C, S, Lupus anticoagulant ordered given patient age and presentation with MCA occlusion. Musculoskeletal No active issues Disposition - PT/OT pending Feeds/Fluids: NaCL continuous infusion until evaluation by SIGNALING PROJECT ENGINEER Analgesia: tylenol IV for back pain Sedation: n/a Thromboprophylaxis: scd HOB: flat until post thrombectomy time, then HOB 30 degrees Ulcer Ppx: protonix 40 Glucose: ha1c pending SBT: n/a BR: senna and miralax Indwelling lines: 2 PIVs and art line De-escalation: will remain in icu for next 24 hours at least till post MT 24 hour scan Family: updated at bedside Radames Hinkle MD Neurology Resident. [facility]. Associated attestation - Dary Garvey MD - 10/19/2022 8:55 PM CDT I have seen and examined the patient with the resident and I agree with the findings and plan of care as documented by the resident except for below: Plan of care for today: Rt MCA S/p TNK thrombectomy , q1hr NC SBP<140 and MAP > 70 per IR IVF while NPO Date of Service: 10/19/2022 Dary Garvey MD Neurologic Critical Care Attending * Anita Richards - 10/19/2022 12:18 PM CDTAssociated Order(s): IP CONSULT TO FARM CONTRACTOR Consult acknowledged New patient to Stroke Caseload Chart reviewed Stroke type: Ischemic Patient is currently undergoing medical interventions/evaluations; Cerebral angiogram today. Patient is not medically ready to transition to next level of care Post acute recommendation: Undetermined; pending skilled therapy evaluations Insurance authorization is required Payer/Plan Subscriber Name Rel Member # Group # [id number] [facility]* CONSUELO DARBY [id number] [address] [id number] Please refer to Nurse Salon Coordinator's Stroke Psychosocial Assessment note for additional information SW will continue to follow for disposition needs as appropriate Thank you for the referral, JAYLENE Holcomb, [facility] 10/19/2022 12:19 PM documented in this encounter OR Notes * Brief Op Note - Oriana Suarez MD - 11/15/2022 1:09 PM CDT Neuroradiology Procedure Note Type of Procedure: Lumbar puncture Indications: fever s/p craniectomy, concern for meningitis Procedure Details: Immediately prior to the procedure, universal protocol was performed. The patient was re-identifiedand the procedure confirmed with the patient's spouse and all other members of the procedure team. Indications, risks and benefits were explained to the patient's spouse and informed consent was obtained. The patient was sterilely prepped and draped. Local anesthesia used: 1.5 mL of 1% Lidocaine HCl Needle used: 20 gauge 5 inch spinal needle Spinal level accessed: L3-4 CSF appearance: clear Opening pressure: not measured Amount of CSF removed: 19 mL in 4 tubes Fluoroscopy time: 29 seconds Immediate complications: none The attending physician, Dr. Suarez, was present for the darden portions of the procedure. Please see the procedure dictation for full details regarding this procedure and its findings. Royer Stovall MD Human Resources Compensation Analyst 11/15/22 1:09 PM I , , was present for the darden and critical portions of the procedure * Brief Op Note - Maicol Quiroz DO - 11/10/2022 8:12 PM CDT Brief Op Note Procedure: EGD, percutaneous gastropexy with retention sutures Patient Name: Consuelo Darby Date of Service: 11/10/2022 Pre-Op Diagnosis: Eroding gastric tube Post-Op Diagnosis: gastric ulcer Surgeon(s) and Role: * Jean Saxena MD - Primary * Maicol Quiroz DO - Resident - Assisting * Jacques Novoa DO Anesthesia Type: general ETT Complications: none Findings: small erosion behind gastric bumper without signs of gastric perforation. EBL: minimal blood loss Urine Output : 200 uop IV Fluid Intake: 250 mL crystalloid Drains: Enteral - Percutaneous Endoscopic Gastrostomy Abdomen;Left;Upper (Active) Surrounding Skin Dry;Intact 11/10/22 08 Tube Status Infusing 11/10/22 174 Gastric Output Amount (mL) 20 ML 11/10/22 0800 Gastric Output Description None/NA 11/10/22 174 Position verified Auscultation 11/10/22 174 Gastric Residual Amount (ML) 20 ML 11/10/22 174 Gastric Flush Amount 100 ML 11/10/22 0800 Gastric Flush Type Water 11/10/22 0800 Output Amount (mL) 0 ML 11/08/22 0800 Site Assessment WDL 11/10/22 174 Dressing Type Gauze 11/10/22 174 Dressing Status Clean, Dry, Intact 11/10/22 0800 Site Care Cleansed 11/10/22 174 Graduated Cylinder Change Date 11/09/22 11/10/221740 Tube Feed Syringe Change Date 11/09/22 11/10/221740 Specimen(s): * No specimens in log * Implant(s): * No implants in log * Maicol Quiroz DO * Operative - Maicol Quiroz DO - 11/10/2022 8:12 PM CDT Operative Note Procedure: EGD, percutaneous gastropexy with retention sutures Patient Name: Consuelo Darby Date of Service: 11/10/2022 Pre-Op Diagnosis: Eroding gastric tube Post-Op Diagnosis: gastric ulcer Surgeon(s) and Role: * Jacques Novoa DO - Primary * Maicol Quiroz DO - Resident - Assisting Anesthesia Type: general ETT Complications: none Findings: small erosion behind loose gastric bumper without signs of gastric perforation. Indications for Procedure: Consuelo Darby is a 42 year old female who presented on 10/19/2022??as code stroke due to acute onset left sided weakness, left sided sensory deficits, and dysarthria. ??Found to have right MCA occulusion. She was taken to the OR for right decompressive hemicraniectomy on 10/20/2022. She had an iatrogenic vascular injury of the external iliac artery s/p R thrombectomy with bovine pericardial patch angioplasty 10/30/22. She was found to have a 2cm rim-enhancing collection along inferior aspect ofgastrostomy tube (tube placed 11/10) with small locule of gas seen on CT, concerning for possible gastric erosion by gastrostomy tube bumper. Plan to take patient to the OR for endoscopic evaluation ofthe gastric tube to ensure it is not eroding through the stomach. Details of Procedure: The patient was taken to the operating room and identified by name, medical record number, and dateof . An anesthesia timeout was performed identifying the correct patient, site, and procedure.All were in agreement and elected to proceed. The patient was transferred to the operating table, placed in the supine position. General anesthesia was induced without difficulty and the patient was intubated. Sequential compression devices were in place and pre- operative antibiotics were scheduled. After optimal positioning and padding of all pressure points, the abdomen was prepped and draped in the usual sterile fashion using betadine. A surgical timeout was performed identifying the correct patient, site, and procedure. All were in agreement and elected to proceed. An endoscope was inserted into the esophagus and advanced to the stomach. There was signs of mild gastritis. The gastric tube was evaluated and there was a small erosion behind the loose gastric bumper without signs of gastric perforation. No purulence or bleeding was noted at the site of the ulcer. We elected to pexy the stomach to the abdominal wall to ensure proper approximation for track formation. Using spinal needles under direct endoscopic guidance we percutaneously passed two sutures inand out of the stomach and tied them over a red rubber catheter. Care was taken not to tie these sutures too tight. The endoscope was removed there was no sign of injury to the esophagus upon removal. Patient remained intubated and was transferred back to the ICU in stable condition. At this point the procedure was concluded, anesthesia was terminated, the patient was extubated andtransported to the PACU in stable condition. All sponge/needle/instrument counts were reported to me as correct at the conclusion of the case. Dr. Novoa was present for all portions of the procedure. EBL: minimal blood loss Urine Output : 200 uop IV Fluid Intake: 250 mL crystalloid Drains: Enteral - Percutaneous Endoscopic Gastrostomy Abdomen;Left;Upper (Active) Surrounding Skin Dry;Intact 11/10/22 08 Tube Status Infusing 11/10/221740 Gastric Output Amount (mL) 20 ML 11/10/22 08 Gastric Output Description None/NA 11/10/221740 Position verified Auscultation 11/10/221740 Gastric Residual Amount (ML) 20 ML 11/10/22 174 Gastric Flush Amount 100 ML 11/10/22799 Gastric Flush Type Water 11/10/22799 Output Amount (mL) 0 ML 11/08/22 08 Site Assessment WDL 11/10/221740 Dressing Type Gauze 11/10/221740 Dressing Status Clean, Dry, Intact 11/10/22 0800 Site Care Cleansed 11/10/22 174 Graduated Cylinder Change Date 11/09/22 11/10/221740 Tube Feed Syringe Change Date 11/09/22 11/10/221740 Specimen(s): * No specimens in log * Implant(s): * No implants in log * Maicol Quiroz DO Associated attestation - Jacques Novoa DO - 11/13/2022 5:31 PM CDT I was present throughout the procedure and agree with the note above. Jacques Novoa DO 11/13/2022 5:31 PM * Brief Op Note - Rachna Huntley DO - 10/30/2022 11:31 AM CDT Brief Op Note Procedure: 1. R iliofemoral thrombectomy 2. RLE angiogram 3. R common femoral patch angioplasty Patient Name: Consuelo Darby Date of Service: 10/30/2022 Pre-Op Diagnosis: Right common femoral thrombosis Post-Op Diagnosis: Same Surgeon(s) and Role: * Valdez Clay MD - Primary * Gisselle Florentino MD Meteorologist In Charge(s): Rachna Huntley DO Anesthesia Type: general ETT Complications: none Findings: PT and AT signals completed at conclusion of case EBL: 200 mL Urine Output : 500 mL IV Fluid Intake: per anesthesia Drains: Enteral - Nasal/Oral Naso-gastric Nostril/Nare;Left (Active) Output Description None/NA 10/30/22 08 Tube Status Clamped 10/30/22 08 Surrounding Skin Dry;Intact 10/30/22 08 Site Assessment WDL 10/30/22 08 Tube Repositioned No 10/30/22 08 External Tube Length (cm) 64 cm 10/30/22 06 Position verified Auscultation 10/30/22 08 Residual Amount (ML) *Excluding Tungsten* 0 ML 10/29/22 1800 Flush Amount 100 ML 10/29/22 2000 Flush Type Water 10/29/221999 [REMOVED] Drain 1 Flat Anterior;Left;Upper Head (Removed) Drain Output Amount 20 ml 10/23/22 0400 Status Patent;Device Compressed 10/23/22 1200 Site/Line Assessment [employer] 10/23/22 1200 Dressing Type Not Applicable 10/23/22 1200 Dressing Status Other 10/23/22 1000 Output Description Serosanguinous 10/23/22 1200 [REMOVED] Enteral - Nasal/Oral Naso-gastric Nostril/Nare;Right (Removed) Output Description Yellow;Green;Bile 10/22/22 0600 Tube Status Clamped 10/23/22 0800 Surrounding Skin Dry;Intact 10/23/22 0800 Site Assessment [employer] 10/23/22 0800 Internal Tube Length (cm) 65 cm 10/23/22 08 Position verified X-Ray ;Stomach contents obtained 10/23/22 0800 Intake (ml) 90 ml 10/22/22 1800 Flush Amount 255 ML 10/23/22 0600 Flush Type Water 10/23/22 0600 [REMOVED] Enteral - Nasal/Oral Naso-gastric Nostril/Nare;Right (Removed) Tube Status Clamped 10/24/22 1000 Surrounding Skin Dry;Intact 10/24/22 1000 Site Assessment [employer] 10/24/22 1000 Internal Tube Length (cm) 65 cm 10/24/22 1000 Position verified Auscultation;Stomach contents obtained 10/24/22 1000 Intake (ml) 200 ml 10/24/22 0800 Flush Amount 295 ML 10/24/22 0600 Flush Type Water 10/24/22 0600 [REMOVED] Enteral - Nasal/Oral Naso-gastric Nostril/Nare;Right (Removed) Tube Status Infusing 10/28/22 2200 Surrounding Skin Dry;Intact 10/28/22 2200 Site Assessment [employer] 10/28/22 2200 Tube Repositioned No 10/28/22 2200 External Tube Length (cm) 65 cm 10/27/22 0600 Position verified Auscultation;Stomach contents obtained;X-Ray 10/28/22 2200 Intake (ml) 60 ml 10/24/22 1500 Residual Amount (ML) *Excluding Tungsten* 0 ML 10/28/22 1800 Flush Amount 100 ML 10/28/22 2000 Flush Type Water 10/28/221999 Specimen(s): ID Type Source Tests Collected by Time Destination A : right femoral thrombus Resection without Tumor Thrombus PATHOLOGY TISSUE Valdez Clay MD 10/30/2022 1218 Implant(s): Implant Name Type Inv. Item Serial No. Hostage Negotiator Lot No. LRB No. Used Action Patch Cv [id number] Vsgrd Bvn Pricrd Strl Patch Cv [id number] Vsgrd Bvn Pricrd Strl [employer] [id number] Right 1 Implanted Rachna Huntley DO * Operative - Valdez Clay MD - 10/30/2022 11:31 AM CDT Vascular Surgery Operative Note Patient Name: Consuelo Darby Date of Surgery: 10/30/2022 Surgeon: Dr Clay Meteorologist In Charge: Rachna Huntley DO; Gisselle Florentino MD Pre-Op Diagnosis: Right common femoral thrombosis Post-Op Diagnosis: Same Surgery Performed: 1. R iliofemoral thrombectomy 2. RLE angiogram 3. Repair of right common femoral artery with bovine pericardial patch angioplasty Anesthesia: GETA Indications: Patient is a 41 year old female who presented to the hospital with an acute stroke. Neuro interventional team was consulted and performed a percutaneous thrombectomy via a right femoral artery approach. Used a closure device at their access site and was subsequently found to have rightcommon femoral artery occlusion/thrombosis. She remained asymptomatic but YING was significantly decreased so decision was made to proceed to OR for thrombectomy. R/B/A were discussed with her , who signed consent on her behalf given her inability to sign for herself. Details of the Operation: The patient was brought to the operating room and placed in the supine position on the operating table. Anesthesia team was present for general endotracheal anesthesia. Perioperative antibiotics were given, a puentes was placed, SCDs were placed and cycling. The patient's bilateral groins were prepped and draped in sterile fashion. A timeout was performed with all pertinent parties present and included the correct patient, procedure and location. An incision was made over the right groin and carried down through the subcutaneous tissues. The inguinal ligament was identified and released from surrounding tissue. The common femoral artery was identified and dissected free at the level of the inguinal ligament, there was a faint pulse within it. Once dissected, the artery was encircled with a vessel loop. We carried our dissection distally through significant inflammatory changes. We were able to identify a piece of the closure device and discarded it from the field. Both the SFA and profunda were able to be dissected out and encircled with vessel loops. The patient was systemically heparinized and redosed as needed to keep her ACT > 250. The previous access site was visible and was extended transversely to create a window for ourFogarty catheter. A #3 and #4 were passed proximally and distally with return of mixed thrombus. This was sent for pathology. We had excellent inflow and back bleeding. The arteriotomy was closed using interrupted 5-0 Prolene suture. Once closed, a doppler was used to evaluate the signals within the vessel. The common femoral had an obstructive type signal and the signals in the profunda and SFA were weaker than expected. We, therefore, access the common femoral with a micro access kit and completed an angiogram. There was still a small luminal irregularity in the proximal common femoral withno filling of the SFA or profunda. We closed the arteriotomy created by our access sheath and proceeded with reopening our prior arteriotomy. We extended it longitudinally to gain better visualization of the vessel. A #5 Afatb was passed proximally and one more small piece of thrombus was retrieved. No further thrombus was retrieved distally. A bovine pericardial patch was used to complete a patch angioplasty of our longitudinal arteriotomy. This was sewn in with running 5-0 Prolene. Doppler was used to check signals in the feet and none were found. There was flow into the profunda but no flow into the SFA. The patch was reopened and a Aftab was again passed down the SFA. The back bleedi ng improved significantly but there was no identifiable thrombus retrieved. Signals in her foot were checked again and there was both an AT and PT signal found. The arteriotomy in the patch was closed with running 6-0 Prolene. Hemostasis was ensured. The incision was closed in multiple layers using2-0 and 3-0 Vicryl then 4-0 Monocryl for the skin. The wound was dressed with surgical glue. The patient tolerated the procedure well and was extubated successfully. Transferred to recovery area in satisfactory condition. Specimens: thrombus Sponge/Instrument Counts: correct Estimated Blood Loss: 200cc Findings: Right common femoral artery thrombosed, arterial closure device (Angioseal) appeared mal-deployed. IV Fluids: see anesthesia record Complications: none Implants: 1cm bovine pericardial patch Patient Disposition: to PACU Rachna Stock YukoDO 10/31/2022 10:59 AM I was present for all portions of this procedure. 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 Stuart Meteorologist In Charge(s): Richi Anderson MD Type of anesthesia: Dexmedetomidine and propofol per pump, details in MAR Administered 1% lidocaine orally. Sedation start: 903 Sedation stop: 949 Monitoring: Monitoring consisted of: heart rate, front desk monitor, continuous pulse oximetry, continuous capnography, frequent blood pressure checks, level of consciousness, IV access, constant attendance by RN until patient recovered and constant attendance until patient stable. Response: Vital signs stable, airway patent and O2 saturations greater than 92%. Patient status post procedure: Hemodynamically and neurologically stable. Complications: none Associated attestation - Jennifer Stuart MD - 10/23/2022 9:59 AM CDT I was present for the entire procedure. Jennifer Stuart MD * Brief Op Note - Kamari Mcfarlane MD - 10/20/2022 6:58 PM CDT Brief Op Note Procedure: RIGHT DECOMPRESSIVE HEMICRANIECTOMY, POSS ICP MONITOR, POSS EVD Patient Name: Consuelo Darby Date of Service: 10/20/2022 Pre-Op Diagnosis: Cerebrovascular accident (CVA), unspecified mechanism (CMS/HCC) [I63.9] Post-Op Diagnosis: same Surgeon(s) and Role: * Jazz Marquez MD - Primary * Kamari Mcfarlane MD - Resident - Assisting Anesthesia Type: general ETT Complications: none Findings: cerebral edema EBL: blood loss of 300 ml Urine Output : 700 mL IV Fluid Intake: Per anesthesia Drains: Enteral - Nasal/Oral Naso-gastric Nostril/Nare;Right (Active) Tube Status Clamped 10/20/22 1745 Surrounding Skin Dry;Intact 10/20/22 1600 Site Assessment WDL 10/20/22 1600 Internal Tube Length (cm) 65 cm 10/20/22 1600 Position verified Auscultation;Stomach contents obtained;X-Ray 10/20/22 1600 Intake (ml) 60 ml 10/20/22 1700 Specimen(s): * No specimens in log * Implant(s): Implant Name Type Inv. Item Serial No. Hostage Negotiator Lot No. LRB No. Used Action SYNTTHECEL DURA REPAIR [id number] Right 1 Implanted Kamari Mcfarlane MD * Operative - Jazz Marquez MD - 10/20/2022 6:58 PM CDT NAME: Consuelo Darby : 1980 DATE OF OPERATION: 10/20/2022 ATTENDING SURGEON: JAZZ MARQUEZ MD PREOPERATIVE DIAGNOSES: Malignant right MCA infarction POSTOPERATIVE DIAGNOSES: Same PROCEDURES PERFORMED: 1) Right sided mxnedo-wzxznrp-vknauhgk decompressive sonya-craniectomy for treatment of refractory intracranial hypertension 2) ICP monitor placement 3) Subgaleal drain insertion ATTENDING SURGEON: JAZZ MARQUEZ MD ASSISTANTS: Shawna Adkins M.D. ANESTHESIA: General. POSITION: Supine with head turned to the left BRIEF HISTORY: 41 year old female with PMHx of GERD, tobacco use who presented on 10/19 with left sided weakness (NIHSS:7) secondary to right MCA territory infarct. CT angiogram of the brain right MCA M1 occlusion s/p mechanical thrombectomy with R M1 recanalization and TICI2b. CT head on 10/20/22 showed worsening edema and midline shift resulting in progression to malignant MCA infarction. Given the above findings we discussed about risks and benefits of possible surgical intervention with patient's family whoelected to proceed with decompressive hemicraniectomy. Informed consent was obtained by patient's family. PROCEDURE IN DETAIL: The patient was brought to the operating room and after suitable time out for identification, placed on the operating room table. Once the airway and lines were secured, the patient was flipped supine with head turned to the left. The hair over the right scalp was removed. A standard trauma flap reverse question gisselle incision was designed on the right. Local anesthetic 1% marcaine with 1:100.000 epinephrine was injected. The incision was prepped and draped in the usual sterile fashion. Surgicaltimeout was performed. Skin incision was made with a 10-blade scalpel and carried down through the skin in the subgaleal plane to the level of pericranium and temporalis muscle fascia at the level ofzygoma. The myocutaneous flap was then retracted anteriorly after meticulous hemostasis was performed. Hemostasis was maintained using bipolar electrocautery. Three eduardo holes including one posteriorly at the parietal region, a second at the keyhole, and the last one inferiorly at the temporal squamous bone were made using the [employer] drill. The eduardo holes was undermined with a straight bone curette. After dissecting the dura carefully using a Sandee elevator then the craniotome B1 bit with a footplate was used to elevate the bone flap for a standard decompressive sonya-craniectomy. The bone flap was elevated using a [place] #1 dissector. The dura was adherent to the bone flap and opened during the craniotomy. A small right posterior temporal contusion was noted after removing of the bone flap, hemostasis was achieved using gelfoam and surgicel. The dura was further opened in a linear fashion using Metzenbaum scissors by creating multiple leaflets and retracted inferiorly. There was significant degree of diffuse cerebral swelling. The squamous temporal lobe was flattened down the level of the middle cranial fossa using Le[place]ell rongeurs. Once we were satisfied with the decompressionwe proceeded with meticulous intradural hemostasis using multiple rounds of irrigation followed by Surgiflo hemostatic matrix and bipolar electrocautery, followed by gelfoam with thrombin. A Raumedic ICP monitor catheter was inserted in the right frontal lobe and tunneled posteriorly away from the incision site. Synthecel onlay was utilized for duraplasty. The bone flap was sterily stored and sent to the bone bank for future cranioplasty. The ICPm was secured to the skin with silk 2-0 sutures. A subgaleal LEONCIO drain was then inserted and tunneled posteriorly. The LEONCIO drain was secured to the skin with multiple silk 2-0 sutures. After appropriate hemostasis was obtained, the wound was copiouslyirrigated, then approximated using 2-0 Vicryl sutures for the galea followed by 3-0 Vicryl deep dermal sutures. All counts were correct prior to skin closure. The skin was approximated using carla.At this point, the drapes were removed, and the table was turned back towards anesthesia. The patient was taken intubated and hemodynamically stable to the neuro ICU for close monitoring. ESTIMATED BLOOD LOSS: 300 mL. FINDINGS: Severe degree of diffuse cerebral swelling consistent with malignant right MCA infarction. DISPOSITION: ICU CONDITION: Stable. IMPLANTS: Implant Name Type Inv. Item Serial No. Hostage Negotiator Lot No. LRB No. Used Action Agent Hmst Thrmb Kt Surgiflo 2Ml Agent Hmst Thrmb Kt Surgiflo [employer] [id number] Right 1 Implanted SYNTTHECEL DURA REPAIR [id number] Right 1 Implanted [employer] [id number] Right 1 Implanted ATTENDING ATTESTATION: I reviewed the resident's note and agree with the documented findings. I was present for the entireprocedure. Jazz Marquez MD 10/25/2022 5:37 PM * Brief Op Note - Jaime Drew MD - 10/19/2022 10:19 AM CDT IVR Post-Operative/Procedure Progress Note Surgeon: Mitali Walter Meteorologist In Charge(s): Isak Monte Pre-Procedure Diagnosis:R MCA M1 occlusion Post-Procedure Diagnosis: Same Anesthesia: General Technical Procedure Performed: Diagnostic Catheter Cerebral Angiogram Findings: TICI2b revascularization of the R MCA M1 occlusion Status: Stable Complications: None Estimated Blood Loss: negligible Film interpretation to be dictated in PACS Additional Instructions: None The patient tolerated the procedure well without incident or complication and was returned to ICU in satisfactory condition. Jaime Drew MD Neurointervention Fellow documented in this encounter ED Notes * Cheli Lynch MD - 10/19/2022 5:42 PM CDT [facility] Emergency Department Emergency Medicine Resident Note History of Present Illness: Consuelo Darby is a 41 year old female with mhx of HTN, GERD, OCPs who p/w left sided weakness, nonverbal per spouse, and c/f stroke. Pt was BIBEMS. LKW 0630. Pt was found on ground next to bed. Ptis A&O x4 per EMS report, speech clear, answers questions, and left side flaccid. Pt was weak but moving left side on EMS eval. Pt notes headache similar in past to migraine MOREIRA. Has history of hemiplegic migraine. Past Medical History: Past Medical History: Diagnosis Date [...] COLONOSCOPY REMOVAL OR ABLATION TUMOR/POLYP/LESION (ANY METHOD) Home Medications: No current facility-administered medications on file prior to encounter. Current Outpatient Medications on File Prior to Encounter Medication Sig Dispense Refill ??? amitriptyline (Elavil) 50 MG tablet Take 2 (two) tablets by mouth at bedtime ??? Cetirizine HCl (ZYRTEC PO) Take 10 mg by mouth once daily ??? levonorgestrel-ethinyl estradiol (LESSINA-28) 0.1-20 MG-MCG tablet TAKE 1 TABLET BY MOUTH EVERYDAY FOR CONTROL Reasons: Control Treatment 84 tablet 4 ??? metoprolol tartrate IR (Lopressor) 25 MG tablet Take 1 (one) tablet by mouth 2 times daily ??? omeprazole (PriLOSEC) 20 MG capsule Take 20 mg by mouth daily before breakfast ??? verapamil SR 24hr (Verelan) 120 MG capsule Take 1 (one) capsule by mouth at bedtime ??? Vitamin D3, cholecalciferol, 50 MCG (2000 UT) tablet Take 2,000 Units by mouth once daily Allergies: Allergies Allergen Reactions ??? 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 Smoking status: Former Packs/day: 0.50 Types: Cigarettes Quit date: 2014 Years since quittin.6 ??? Smokeless tobacco: Never Vaping Use ??? Vaping Use: Never used Substance Use Topics ??? Alcohol use: No Alcohol/week: 0.0 - 1.7 standard drinks of alcohol Comment: Occasional Family History: Family History Problem Relation Name Age of Onset ??? Cancer Maternal Grandfather Lung ??? Diabetes Maternal Grandfather ??? Diabetes Maternal Grandmother ??? Hypertension Mother ??? Thyroid Disease Mother Review of Systems Positives are bolded, negatives are not Constitutional: fevers, chills HEENT: sore throat, eye pain Respiratory: shortness of breath, difficulty breathing Cardiac: chest pain, ARGUELLO GI: abdominal pain, n/v, constipation, diarrhea : dysuria MSK: new swelling, deformity, pain Skin: new rash, wound Neuro: new headache, focal weakness, changes in sensation, dizziness See above and also HPI, otherwise negative. Physical Exam BP 145/67 Pulse (!) 125 Temp 98.9 ??F (37.2 ??C) (Oral) Resp 25 Ht 1.626 m (5' 4 ) Wt 95.3 kg (210 lb 1.3 oz) SpO2 97% General: alert, well appearing, sitting comfortably in bed HEENT: nc/at, mmm, eomi, peerl Neck: no jvd, supple, non-tender, trachea midline Back: no obvious deformity, no midline tenderness Cardiac: S1 S2, tachy, no m/r/g, 2+ radials DPs PTs, chest wall non-tender Lung: ctab, speaking in sentences Extremities: no obvious injuries or deformities, no cyanosis, no peripheral edema Abdomen: ndnt, no pulsatile mass appreciated, BS+ Skin: no rashes, abrasions, ecchymosis appreciated, no cyanosis Neuro: aaox3 (time, place, person), cn2-12 grossly intact, moving all 4 extremities equally, sensation reduced to left face, arm, and leg, speech somewhat slurred Psych: Pleasant, appropriate situational affect, linear thought process Studies and Interpretation Pulse Oximetry Interpretation: Saturation: 96% Oxygen Delivery: Room Air Interpretation: No hypoxia at this time Initial Electrocardiogram Rate: 126 Rhythm: sinus, tachy [place]: Normal Intervals: No CO QRS QT prolongation ST/ T wave: No Christopher/d, no significant ST or T wave abnormalities. No evidence of heart block, arrhythmia, ACS equivalents Impression: sinus tachycardia Imaging: CT ANGIO BRAIN NECK STROKE Final Result PROCEDURE: CT ANGIO BRAIN NECK STROKE, DATE/TIME OF EXAM: 10/19/2022 8:16 AM, LOCATION [facility] INDICATION: Code Stroke ADDITIONAL CLINICAL INFORMATION: Ordering [...] likely originated from a callosal marginal artery. IMPRESSION: 1. [...] Lonnie Rae MD on 10/19/2022 8:[address] BRAIN - Stroke Final Result PROCEDURE: CT BRAIN STROKE, DATE/TIME OF EXAM: 10/19/2022 8:04 AM, LOCATION [facility] INDICATION: Code Stroke ADDITIONAL CLINICAL INFORMATION: Ordering [...] Lonnie Rae MD on 10/19/2022 8:15 AM IR INTRACRANIAL MECH THROMBECT (Results Pending) CT HEAD NON CONTRAST (Results Pending) MRI BRAIN NON CONTRAST (Results Pending) Labs: Labs Reviewed CBC W AUTO DIFFERENTIAL - Abnormal; Notable for the following components: Result Value WBC 10.9 (*) Neutrophils Absolute 7.33 (*) All other components within normal limits COMPREHENSIVE METABOLIC PANEL - Abnormal; Notable for the following components: Chloride 108 (*) CO2 21 (*) Bilirubin Total 0.1 (*) Albumin/Globulin Ratio 0.8 (*) All other components within normal limits BASIC METABOLIC PANEL (CALCIUM TOTAL) - Abnormal; Notable for the following components: BUN 6 (*) Creatinine 0.50 (*) Chloride 108 (*) CO2 21 (*) Glucose 140 (*) Calcium 8.2 (*) All other components within normal limits CBC W/O DIFFERENTIAL - Abnormal; Notable for the following components: WBC 19.5 (*) Hemoglobin 11.9 (*) All other components within normal limits LIPID PROFILE - Abnormal; Notable for the following components: Triglycerides 201 (*) All other components within normal limits GLUCOSE - POINT OF CARE - Abnormal; Notable for the following components: Glucose WB/POC 140 (*) All other components within normal limits GLUCOSE - POINT OF CARE - Abnormal; Notable for the following components: Glucose WB/POC 32 (*) All other components within normal limits GLUCOSE - POINT OF CARE - Abnormal; Notable for the following components: Glucose WB/POC 118 (*) All other components within normal limits PT-INR SLH - Normal HCG URINE QUALITATIVE - Normal URINE DRUG SCREEN IMMUNOASSAY - Normal Narrative: The Urine Toxicology Screening Panel does not screen for Propoxyphene, Meprobamate, Carisoprodol, Trazodone, oxmq-nhx-ogupeaw medications and/or volatiles (Acetone, Isopropanol, Methanol or Ethylene Glycol). Ethanol, Salicylate, Acetaminophen, Tricyclic Antidepressants and several therapeutic drugsmay be individually assayed in serum or plasma specimen. Toxicology testing by the [facility] is an aid to medical diagnosisand treatment of patients. No documented chain of custody was maintained. Results are intended to be used for clinical purposes only. CREATININE - POCT INTERFACED - Normal TROPONIN-I HIGH SENSITIVE BASELINE + 1HR PROTEIN C ACTIVITY PROTEIN S ACTIVITY LUPUS ANTICOAGULANT PANEL HEMOGLOBIN A1C HGB HCT PANEL INR WHOLE BLOOD - POINT OF CARE (IP) STROKE TYPE + SCREEN PANEL BLOOD TYPE VERIFICATION GLUCOSE - POINT OF CARE Medical Decision Making & ED Course: Clinical diagnosis: 1. Left sided weakness 2. Left gaze palsy 3. Left hemianopsia 4. Left sided sensory deficit 5. Dysarthria 6. Right MCA stroke DDx and thought process: 1. Ischemic stroke vs ICH vs hypoglycemia vs metabolic abnormality vs other Medical Decisions: Plan: 1. Therapeutic - tenecteplase 2. Evaluate labs, imaging 3. Consult neurology 4. Reassess ED Course: - Reviewed triage notes/prior records if available, vitals reviewed, pt assessed, orders placed. ED Course as of 10/20/22 1041 [place] Oct 19, 2022 0800 Pt evaled. Conversant in full sentences on RA. [AB] 0805 POC no hypoglc, 105. [AB] 0807 NIH score 7. LKW 1 hr. [AB] 0810 Verified hx gerd, htn, no other chronic medical conditions, use of OCPs. [AB] 0815 CT: IMPRESSION: 1. Occlusion of the distal M1 segment and 2 proximal M2 segments of the right middle cerebral artery. A small early M2 segment of the right MCA is patent. Some reconstitution of the distal branches. 2. No large arterial occlusions or significant stenoses identified in the head or neck. [AB] 0816 Likely neuro ICU and tnk [AB] 0824 Nursing giving tnk. Admitted to neuro icu. [AB] 0824 Admitted to neuro ICU. [AB] 1410 Not . Coags unremarkable. Leukocytosis of 10.9, no anemia, platelets wnl. No MARIA ELENA. No gross electrolyte abnormalities. Bicarb one point low at 21, chloride one point high at 108. AG 10, no gap. [AB] ED Course User Index [AB] Cheli Lynch MD Clinical Impressions as of 10/20/22 1041 Weakness - left Gaze palsy Hemianopsia Left-sided sensory deficit present Dysarthria Right middle cerebral artery stroke (CMS/HCC) At high risk for bleeding after thrombolytic therapy - Patient presents with c/f stroke with left sided symptoms including reports of weakness, loss of sensation, and dysarthria as well as left hemianopsia on exam. Neurology on board. NIH score 7. TNK administered. Pt admitted to ICU. IR brought on board by neuro. - I discussed the patient and my findings with the neuro team, and they have accepted the patient to their service for further management. Diagnosis: 1. Right middle cerebral artery stroke (CMS/HCC) 2. Weakness 3. Gaze palsy 4. Hemianopsia 5. Left-sided sensory deficit present 6. Dysarthria 7. At high risk for bleeding after thrombolytic therapy Disposition: Admitted to neuro ICU pending bed availability. Cheli Lynch MD, Emergency Medicine, PGY-2 * Helen Latif MD - 10/19/2022 9:02 AM CDT Patient seen and examined with Resident, Dr. Lynch. Please see their note for further details. I confirm and agree with the history, exam, assessment and plan. In addition I note/revise: Interval history: 41 year old presents via ambulance for evaluation as a code stroke . Patient reportedly with onset of left sided weakness noted started @630am today. States was in usual state whenawakened this morning. Medics and patient denies fall or injury. Patient c/o right sided MOREIRA. States she has had similar symptoms in the past with her migraines . Denies any other c/o. Stroke resident at initial evaluation on arrival, Brief evaluation and NIH scored en route to CT scanner outside of the ED suite. EM resident, stroke resident, and nursing escorts patient. Vitals: 10/19/22 0803 10/19/22 0827 10/19/22 0833 BP: 174/91 174/91 160/96 Pulse: (!) 116 (!) 116 Resp: Temp: 98.5 ??F (36.9 ??C) SpO2: 96% 96% Weight: 95.3 kg (210 lb 1.3 oz) 95.3 kg (210 lb 1.3 oz) Height: 1.626 m (5' 4 ) Exam: A&Ox4, WD HEENT:NC/AT, pupils 3mm and reactive, mild left facial weakness noted, left gaze palsy, no signs of trauma to face, no c-spine tenderness, no JVD CVS:+tachycardia with regular rhythm, radial and DP pulses palpable and symmetric Lungs:CTAx2 Abd: soft, ND Ext: moves all, no edema/deformity/rash Neuro: decrease strength LUE/LLE vs right side, decreased sensation to touch LUE, LLE, left face (see stroke note for NIH score and more details), gait no assessed Back: no bony tenderness/step-off Assessment/Plan: Acute onset of left sided weakness with a reported h/o hemiplegic migraines. Consider CVA (ischemic vs hemorrhagic). Differential would include recurrence of hemiplegic migraine, metabolic or electrolyte derangement, atypical seizure, other.Continue with stroke protocol. Patient wit hin window for thrombolysis. Await CT scan, stroke team recommendations, lab results. Continuous monitor Likely admit. See resident's note for detailed ED course and final dispo. Labs Reviewed CBC W AUTO DIFFERENTIAL - Abnormal; Notable for the following components: Result Value WBC 10.9 (*) Neutrophils Absolute 7.33 (*) All other components within normal limits COMPREHENSIVE METABOLIC PANEL - Abnormal; Notable for the following components: Chloride 108 (*) CO2 21 (*) Bilirubin Total 0.1 (*) Albumin/Globulin Ratio 0.8 (*) All other components within normal limits CREATININE - POCT INTERFACED - Normal PT-INR [facility] HCG URINE QUALITATIVE HCG URINE QUALITATIVE TROPONIN-I HIGH SENSITIVE BASELINE + 1HR HEMOGLOBIN A1C INR WHOLE BLOOD - POINT OF CARE (IP) STROKE TYPE + SCREEN PANEL BLOOD TYPE VERIFICATION GLUCOSE - POINT OF CARE CT ANGIO BRAIN NECK STROKE Final Result PROCEDURE: CT ANGIO BRAIN NECK STROKE, DATE/TIME OF EXAM: 10/19/2022 8:16 AM, LOCATION [facility] INDICATION: Code Stroke ADDITIONAL CLINICAL INFORMATION: Ordering [...] likely originated from a callosal marginal artery. IMPRESSION: 1. [...] Lonnie Rae MD on 10/19/2022 8:[address] BRAIN - Stroke Final Result PROCEDURE: CT BRAIN STROKE, DATE/TIME OF EXAM: 10/19/2022 8:04 AM, LOCATION [facility] INDICATION: Code Stroke ADDITIONAL CLINICAL INFORMATION: Ordering [...] Lonnie Rae MD on 10/19/2022 8:15 AM IR [facility]TRACRANIAL [facility] THROMBECT (Results Pending) CT HEAD NON CONTRAST (Results Pending) MRI BRAIN NON CONTRAST (Results Pending) ED course: Patient returned to the ED as EM resident informs me that stroke recommends TNK administration in light of CT findings and exam. Patient returned to the resuscitation bay. Dr. Walter and stroke resident at the bedside. I spoke with patient further as nursing starting TNK including answering any questions she may have. Patient states understanding of recommendations, risks/benefits of thrombolytics, and agrees with plan as well as ICU admission for close monitoring. (Please see EM resident's note for further details) 1. Right middle cerebral artery stroke (CMS/HCC) 2. Weakness 3. Gaze palsy 4. Hemianopsia 5. Left-sided sensory deficit present 6. Dysarthria 7. At high risk for bleeding after thrombolytic therapy 8. Acute cerebrovascular accident (CVA) due to embolism of right middle cerebral artery (CMS/HCC) 9. Nihss score 9 Disposition: Admit to Neuro ICU * Bharat Oreilly RN - 10/19/2022 8:27 AM CDT PT BIBEMS for code stroke. called EMS for Pt found down on ground next to bed at 0645. LKW approx 0630. EMS reports pts left side completely flaccid, and non verbal on arrival. En route EMS reports pt answers questions appropriately and speech cleared. Pt currently a&o x4, speech clear,and has left sided weakness. * Petra Babin - 10/19/2022 8:11 AM CDT Salo Darby () [phone] * Bharat Oreilly RN - 10/19/2022 8:02 AM CDT First slice * Jean Nam RN - 10/19/2022 7:53 AM CDT Bed: T04 Expected date: Expected time: Means of arrival: Comments: Code stroke @ 726 documented in this encounter Miscellaneous Notes * Clinical References JOHANA - Hodan Oliveira RN - 10/25/2022 11:31 AM CDT Images from the original note were not included. 05295 Prediabetes You have been diagnosed with prediabetes. This means that the level of sugar (glucose) in your blood is too high. If you have prediabetes, you are at risk for type 2 diabetes. Type 2 diabetes is whenthe level of glucose in the blood reaches a certain high level. With prediabetes, your blood sugar hasn?t reached this point yet. But it's higher than normal. It'svital to make lifestyle changes to lower your blood sugar and prevent diabetes. Why worry about prediabetes? Prediabetes is when the body?s cells have trouble using glucose in the blood for energy. As a result, too much glucose stays in the blood. This can affect how your heart and blood vessels work. Without changes in your diet and lifestyle, the problem can get worse. Once you have type 2 diabetes, it's ongoing (chronic). It needs to be managed for the rest of your life. Diabetes can harm your body and your health by damaging organs, such as your eyes and kidneys.It makes you more likely to have heart disease. And it can damage nerves and blood vessels. Who is at risk for prediabetes? The exact cause of prediabetes is not clear. But some risk factors make a person more likely to have it. These include: ?? A family history of type 2 diabetes ?? Being overweight ?? Being over age 35 ?? Have high blood pressure or high cholesterol ?? Having had gestational diabetes ?? Not being physically active ?? Being ?? Being [place] ?? Being ?? Being ?? Being ?? Being Diagnosing prediabetes Prediabetes may have no symptoms. Or you may have some of the symptoms of diabetes (see below). Thediagnosis is made with a blood test. You may have 1 or more of these blood tests: ?? Fasting glucose test.Blood is taken and tested after you have not eaten (fasted) for at least 8 hours. A normal test result is 99 milligrams per deciliter (mg/dL) or lower. Prediabetes is 100 to 125 mg/dL. Diabetes is 126 mg/dL or higher. ?? Glucose tolerance test.Your blood sugar is measured before and 2 hours after you drink a very sugary liquid. A normal test result is 139 mg/dL or lower. Prediabetes is 140 to 199 mg/dL. Diabetes is 200 mg/dL or higher. When this test is used for screening, make sure you have at least 5.25 ounces(150 grams) of carbohydrates per day for 3 days before the test. ?? Hemoglobin A1C (HbA1C). Your HbA1C is normal if it is below 5.7%. Prediabetes is 5.7% to 6.4%. Diabetes is 6.5% or higher. Treating prediabetes The best way to treat prediabetes is to lose at least 5% to 7% of your current weight and get at least 30 minutes of physical activity on most days of the week. If you sit for long periods of time, get up for short sessions of light activity every 30 minutes. These changes help your body?s cells use blood sugar better. Even a small amount of weight loss can help. Work with your healthcare provider to make a plan to eat well and be more active. Keep in mind that small changes can add up. Other changes in your lifestyle may make you less likely to develop diabetes. Taking medicine such as metformin may help. Your provider can talk with you about these. Stopping smoking will lower your risk of diabetes. Don't use e-cigarettes or vaping products. Ask your healthcare provider for a referral to a lifestyle intervention program. This program will help you get to and stay at a 7% weight loss and increase your physical activity. Follow-up care If not treated, prediabetes can turn into diabetes. This is a serious health condition. Take steps to stop this from happening. Follow the treatment plan you have been given. You may have your blood glucose tested again in about 12 months. Diabetes symptoms Tell your healthcare provider if you have any of these symptoms: ?? Always feel very tired ?? Feel very thirsty or hungry much of the time ?? Have to urinate often ?? Lose weight for no reason ?? Feel numbness or tingling in your fingers or toes ?? Have cuts or bruises that don?t seem to heal ?? Have blurry vision Last Reviewed Date: 2021 ?? 4158-3318 [employer]. All rights reserved. This information is not intended as a substitute for professional medical care. Always follow your healthcare professional's instructions. * Clinical References AVS - Hodan Oliveira RN - 10/25/2022 11:31 AM CDT 35217 Discharge Instructions for Stroke You have a high risk for a stroke, or a TIA (transient ischemic attack). During a stroke, blood stops flowing to part of your brain. This can damage areas in the brain that control other parts of thebody. Symptoms from a stroke depend on which part of the brain has been affected. Stroke risk factors Once you?ve had a stroke, you?re at greater risk for another one. Listed below are some other factors that can raise your risk for a stroke: ?? High blood pressure ?? High cholesterol ?? Cigarette or cigar smoking ?? Diabetes/prediates: A1c 6.0%. (Pre-diabetes range 5.7-6.4%) Continue to monitor this value with your primary care physician. Pre-diabetes education has been added to your MyChart. ?? Carotid or other artery disease ?? Atrial fibrillation, atrial flutter, or other heart disease ?? Not being physically active ?? Obesity ?? Certain blood disorders, such as sickle cell anemia ?? Drinking too much alcohol ?? Abusing street drugs ?? Race ?? Gender ?? Family history of stroke ?? Diet high in salty, fried, or greasy foods Changes in daily living Doing some everyday tasks may be hard after you?ve had a stroke. But you can learn new ways to manage. In fact, doing daily activities may help you to regain muscle strength. This can help your affected arm or leg work more normally. Be patient. Give yourself time to adjust. And appreciate the progress you make. Daily activities You may be at risk of falling. Make changes to your home to help you walk more easily. A therapist will decide if you need an assistive device, such as a cane or walker, to walk safely. You may need to see an occupational therapist (OT). Or you may see a physical therapist (PT). Thesehealthcare providers can help you to learn new ways of doing things. For example, you may need to make changes in how you bathe or dress. You may also need a speech therapist. This is someone who helps you speak normally again and be able to swallow. Tips for showering or bathing ?? Test the water temperature with a hand or foot that was not affected by the stroke. ?? Use grab bars, a shower seat, a handheld showerhead, and a long-handled brush. ?? Use any other device as advised by your therapists. Tips for getting dressed ?? Dress while sitting, starting with the affected side or limb. ?? Wear shirts that pull easily over your head. Wear pants or skirts with elastic waistbands. ?? Use zippers with loops attached to the pull tabs. Lifestyle changes ?? Take your medicines exactly as directed. Don?t skip doses. ?? Begin an exercise program. Ask your provider how to get started. Ask how much activity you should try to get every day or week. You can benefit from simple activities such as walking or gardening. ?? Limit how much alcohol you drink. ?? Control your cholesterol level. Follow your provider?s advice about how to do this. ?? If you are a smoker, quit now. Join a stop-smoking program to improve your chances of success. Ask your provider about medicines or other methods to help you quit. ?? Learn stress management methods. These can help you deal with stress in your home and work life. Diet Your healthcare provider will guide you on changes you may need to make to your diet. They may advise that you see a registered dietitian for help with changes. The changes can improve your cholesterol, blood pressure, and blood sugar. Changes may include: ?? Reducing the amount of fat and cholesterol you eat ?? Reducing the amount of salt (sodium) in your diet, especially if you have high blood pressure ?? Eating more vegetables and fruits ?? Eating more lean proteins, such as fish, poultry, and beans and peas (legumes) ?? Eating less red meat and processed meats ?? Using low-fat dairy products ?? Limiting vegetable oils and nut oils ?? Limiting sweets and processed foods such as chips, cookies, and baked goods ?? Not eating trans fats. These are often found in processed foods. Don't eat any food that has hydrogenated oils listed in its ingredients. Follow-up care ?? Keep your medical appointments. Close follow-up is important to stroke rehabilitation and recovery. ?? Some medicines require blood tests to check for progress or problems. Keep follow-up appointments for any blood tests ordered by your providers. Call 911 Call 911 right away if you have any of the following symptoms of stroke: ?? Weakness, tingling, or loss of feeling on one side of your face or body ?? Sudden double vision or trouble seeing in one or both eyes ?? Sudden trouble talking or slurred speech ?? Trouble understanding others ?? Sudden, severe headache ?? Dizziness, loss of balance, or a sense of falling ?? Blackouts or seizures B.E. F.A.S.T. is an easy way to remember the signs of stroke. When you see these signs, you know that you need to call 911 fast. Fadi SoaresSMelissa. stands for: ?? B is for balance. Sudden loss of balance or coordination. ?? E is for eyes. Vision changes in one or both eyes. ?? F is for face drooping. One side of the face is drooping or numb. When the person smiles, the smile is uneven. ?? A is for arm weakness. One arm is weak or numb. When the person lifts both arms at the same time, one arm may drift downward. ?? S is for speech difficulty. You may notice slurred speech or trouble speaking. The person can't repeat a simple sentence correctly when asked. ?? T is for time to call 911. If someone shows any of these symptoms, even if they go away, call 911 right away. Make note of the time the symptoms first appeared. Last Reviewed Date: 2021 ?? 1103-2266 [employer]. All rights reserved. This information is not intended as a substitute for professional medical care. Always follow your healthcare professional's instructions.This information has been modified by your health care provider with permission from the publisher. * Clinical References AVS - Hodan Oliveira RN - 10/25/2022 11:25 AM CDT Images from the original note were not included. 31031 Thrombolytic Therapy for Stroke An ischemic stroke occurs when blood flow to the brain is blocked. This is most often because of a blood clot in an artery in the brain or an artery leading to the brain. Treatment is needed right away to help dissolve the clot and restore normal blood flow. Restoring normal blood flow can limit damage to brain tissue and improve outcome. With thrombolytic therapy, a clot-busting medicine is used to dissolve the clot. The medicine may be given through an IV (intravenous) line. Or it may be directly sent to the site of the clot through a thin, flexible tube (catheter). Before the treatment ?? People with certain health problems have increased risks for problems with thrombolytic therapy.For this reason, a detailed health history must be taken to check whether it's safe to have the treatment. Tell your healthcare provider about any health problems you have. The provider will also askwhether you?ve had specific problems, such as a past stroke, head injury, or bleeding in the brain. ?? Tell the healthcare provider about all medicines you take. Mention if you take blood thinners (anticoagulants). Also mention if you take kzfr-ztj-ynnolss medicines, herbal medicines, or other supplements. ?? Tell your provider about any allergies you may have, including allergy to contrast dye. ?? Tell your healthcare provider if you use alcohol or tobacco products so that they can give you the safest possible care. ?? Tell your healthcare provider if you are or if you are . ?? Tell your healthcare provider if you have had recent surgery or a head injury. ?? Certain tests need to be done before the treatment. These include blood tests and imaging tests,such as a CT or MRI scan of the brain. ?? Treatment with a thrombolytic must start within 4.5 hours after symptoms start. ?? To be eligible, you must have symptoms that continue plus a diagnosis of ischemic stroke. ?? Your blood sugar will be checked to rule out low blood sugar as cause of symptoms. ?? Two IV lines will be placed in your hand or arm. ?? Your blood pressure may be lowered before giving a thrombolytic. During the treatment Through an IV line Clot-busting medicine is sent through an IV line in your arm or hand. It will travel through your blood until it reaches the clot. You?ll be watched closely throughout the treatment. You will stay inan intensive care unit or a stroke unit for at least 24 hours for monitoring. Your blood pressure must remain below 180/105 mmHg for the first 24 hours after therapy. Through a catheter ?? You are given medicine to numb the site where the catheter will be inserted. This is often the groin area. ?? The radiologist makes a small hole (puncture) in the artery. Then the provider puts the catheterinto the hole. Using X-rays, the provider carefully guides the catheter through the artery. ?? Contrast dye is injected through the catheter into the artery. This helps the artery show up clearly on X-ray images. The radiologist uses these images as a guide. They move the catheter through the artery to the clot. ?? When the catheter reaches the clot, the radiologist adds medicine or uses a device to dissolve the clot. ?? When the procedure is complete, the radiologist removes the catheter. ?? The staff will put pressure on the insertion site for a time to stop any bleeding. Once the bleeding has stopped, they will put a very tight bandage on the site. After the treatment After the treatment, you?ll need to stay in the hospital for at least several days. More imaging tests will be done to check how well the clot is dissolving. Other tests may also be done to help findthe cause of the stroke. If you have the catheter-directed thrombolysis, you will be taken to a recovery area to lie flat for a few hours. Your healthcare provider will talk with you about the results soon after the procedure. Depending on your test results and your health condition, you will either be discharged home or stay in the hospital. Once you are home: ?? Don?t drive for 24 hours or as advised by your provider. ?? Don't walk, bend, lift, or take stairs for 24 hours or as advised by your provider. ?? Don't lift anything over 5 pounds (2.27 kg) for 7 days. Follow any other instructions from your healthcare provider. Risks and possible complications ?? Bleeding in the brain or elsewhere in the body ?? Allergic reaction to the clot-busting medicine. This includes skin rash, itching, or swelling ofyour face or tongue. ?? Sharp pain or pain at the catheter insertion site that gets worse ?? Chest pain or pressure ?? Severe headache ?? Shortness of breath ?? Worsening of heart problems ?? Dizziness or lightheadedness ?? Nausea and vomiting ?? Follow-up care Recovery from a stroke can take several months or longer. Keep all follow-up appointments with yourhealthcare provider. These are needed to monitor your health and how well you are recovering. You may need other treatments such as medicines, rehab (rehabilitation), and surgery in the future. Your healthcare provider will talk about these with you as needed. Call 911 Call 911 or go to an ER (emergency room) right away if you have any of these signs of a stroke: ?? Sudden, unexplained numbness or weakness on a side of the body ?? Problems seeing, double vision, or blurry vision ?? Sudden confusion or problems with speech ?? Sudden dizziness, trouble walking, or problems with balance ?? Sudden, severe headache B.E. F.A.S.T. for stroke B.E. F.A.S.T. is an easy way to remember the signs of a stroke. When you see these signs, you will know that you need to call 911 fast. B.E. F.A.S.T. stands for: ?? B is for balance. Sudden loss of balance or coordination. ?? E is for eyes. Vision changes in one or both eyes. ?? F is for face drooping. One side of the face droops or is numb. When the person smiles, the smile is uneven. ?? A is for arm weakness. One arm is weak or numb. When the person lifts both arms at the same time, one arm may drift downward. ?? S is for speech difficulty. You may notice slurred speech or trouble speaking. The person can't repeat a simple sentence correctly when asked. ?? T is for time to call 911. If someone shows any of these symptoms, even if they go away, call 911 right away. Make note of the time the symptoms first appeared. If you are at risk for having a stroke: ?? Keep a list of important phone numbers next to your phone or in your cell phone list of contacts. Include your healthcare provider and relatives or friends you want to be contacted. ?? Carry a list of all medicines you take and the dosages of each, in your wallet. Include oanl-xva-dwmcmvr medicines, vitamins, and supplements. ?? Write a brief health history, including any other medical problems you have had and the dates. Keep this with the medicine list. You have received a clot-busting medicine (thrombolytic) during your hospital stay. Therefore, you are not eligible to receive thrombolytic therapy during the next three months. Other treatment options may be available to you. Please call 911 to get to the emergency room if you are having stroke-like symptoms. Last Reviewed Date: 2021 ?? 2983-8473 [employer]. All rights reserved. This information is not intended as a substitute for professional medical care. Always follow your healthcare professional's instructions. This information has been modified by your health care provider with permission from the publisher. * Clinical References AVS - Hodan Oliveira RN - 10/25/2022 11:25 AM CDT 04010 Understanding Mechanical Thrombectomy for Ischemic Stroke Mechanical thrombectomy is a procedure used to remove a blood clot in an artery. It?s most often used as an emergency treatment for some ischemic strokes. This is when a blood clot is blocking blood flow to the brain. Mechanical thrombectomy is a type of reperfusion therapy, which means restoring blood flow. This treatment is only done at special stroke centers. It should be done within 6 hours of the first symptoms of stroke or in some people, up to 24 hours. Why the procedure is done Mechanical thrombectomy is done to treat an ischemic stroke in people who have a blockage in a large artery. It can also be used for deep vein thrombosis. This is a blood clot in the legs or arms. How the procedure is done Mechanical thrombectomy is done by an interventional radiologist. This is a doctor who uses medicalimaging to do minimally invasive procedures. For this procedure, you will have general anesthesia. This will put you into a deep sleep-like state. Or you will have sedating anesthesia to make you relaxed and sleepy. Using a continuous X-ray (fluoroscopy), the doctor guides a special tube (catheter) through a bloodvessel. This is usually in the groin. The doctor moves the catheter to the area of the blood clot. The clot is then removed with a clot-removing device (thrombectomy device) at the tip of the catheter. The clot can also be removed by a catheter that uses suction (aspiration) to remove the clot. This procedure can be done even if you have been given clot-busting medicines such as alteplase or tPA. After the procedure After the treatment, you?ll need to stay in the hospital for at least several days. More imaging tests will be done to check how well the clot is dissolving. Other tests may also be done to help findwhat caused the stroke. You will be taken to a recovery area to lie flat for a few hours. Your healthcare team will closelywatch your heart rate, blood pressure, breathing, and nervous system status. Your healthcare provider will discuss the results with you soon after the procedure. Depending on your test results and your health condition, you will either be sent home or stay in the hospital. Once you are home: ?? Don?t drive for 24 hours or as advised by your provider. ?? Don't walk, bend, lift, or take stairs for 24 hours or as advised by your provider. ?? Don't lift anything over 5 pounds (2.27 kg) for 7 days. Follow any other instructions from your healthcare provider. Risks of the procedure Possible risks of this procedure include: ?? Damage to the artery ?? Bleeding in or around the brain ?? Bleeding at the site where the catheter is inserted ?? Breaking up the clot and having pieces travel to another artery ?? Blood vessel spasm ?? Stroke ?? When to call your healthcare provider Call your healthcare provider right away if you have any of these: ?? Swelling or pain that gets worse ?? Weakness or numbness near the area of your surgery ?? Bleeding from the incision or other places ?? Fever ?? Symptoms of a blood clot. These include swelling, pain, warmth, and redness. ?? Shortness of breath or trouble breathing ?? Chest pain Last Reviewed Date: 2021 ?? 5602-7125 [employer]. All rights reserved. This information is not intended as a substitute for professional medical care. Always follow your healthcare professional's instructions. * Clinical References AVS - Hodan Oliveira RN - 10/25/2022 11:25 AM CDT Images from the original note were not included. [id number] What Is Ischemic Stroke? The brain needs a constant supply of blood to work. During a stroke, blood stops flowing to part ofthe brain. The affected area is damaged. Its functions are harmed or even lost. Most strokes are caused by a blockage in a blood vessel that supplies the brain. This is an ischemic stroke. They can also occur if a blood vessel in the brain ruptures (hemorrhagic stroke). The carotids are large arteries that carry blood from the heart to the brain. From the heart to the brain The heart is a pump. It sends oxygen-rich blood out through blood vessels called arteries. If an artery between the heart and the brain is blocked, the brain can?t get enough oxygen. Some artery blockages are caused by fatty deposits (plaque). Arteries can also be blocked by blood clots. Some clotsform on the plaque. Others can form in the heart?especially in people with atrial fibrillation, an irregular heart rhythm. If a piece of plaque or clot breaks off and enters the bloodstream, it can block flow to the brain and cause a stroke. How a stroke occurs Ischemic stroke occurs when an artery that supplies the brain is greatly narrowed or blocked. This can be caused by a buildup of plaque. It can also occur when small pieces of plaque or blood clot (emboli) break off from the blood vessel or heart into the bloodstream. The emboli flow in the blood until they get stuck in a small blood vessel in the brain. Healthy arteries. In a healthy artery, the lining of the artery wall is smooth. This lets blood flow freely from the heart to the rest of the body. The brain gets all the blood it needs to function well. Damaged arteries. High blood pressure, cigarette smoking, high cholesterol, or other problems can roughen artery mejia. This allows plaque to build up in the mejia. Blood clots may also form on the plaque. This can narrow the artery and limit blood flow. Healthy arteries Damaged arteries Know the symptoms of a stroke ?? Weakness. You may feel a sudden weakness, tingling, or a loss of feeling on one side of your face or body including your arm or leg. ?? Vision problems. You may have sudden double vision or trouble seeing in one or both eyes. ?? Speech problems. You may have sudden trouble talking, slurred speech, or problems understanding others. ?? Movement problems. You may have sudden trouble walking, dizziness, a feeling of spinning, a lossof balance, a feeling of falling, or blackouts. Remember: If you have any of these symptoms, call 911 and your doctor as soon as possible. B.E. F.A.S.T. is an easy way to remember the signs of a stroke. When you see the signs, you will know what you need to call 911 fast. B.E. F.A.S.T. stands for: ?? B is for balance. Sudden loss of balance or coordination. ?? E is for eyes. Vision changes in one or both eyes. ?? F is for face drooping. One side of the face is drooping or numb. When the person smiles, the smile is uneven. ?? A is for arm weakness. One arm is weak or numb. When the person lifts both arms and the same time, one arm may drift downward. ?? S is for speech difficulty. You may notice slurred speech or trouble speaking. The person can't repeat a simple sentence correctly when asked. ?? T is for time to call 911. If someone shows any of these symptoms, even if they go away, call 911 right away. Make note of the time the symptoms first appeared. Last Reviewed Date: 2021 ?? [id number] [employer]. All rights reserved. This information is not intended as a substitute for professional medical care. Always follow your healthcare professional's instructions. * Coding Query - Shahbaz Bowen MD - 10/23/2022 6:21 PM CDT DOCUMENTATION CLARIFICATION REQUEST TO: Dr. Bowen FROM: Olga Mcintyre RN, CDS Email: [email or web address] Use the F2 function darden to complete the query. Click on ???Sign?? to file the note. Patient Name: Consuelo Darby Please review the clinical information below and clarify the severity of malnutrition as documented10/23 progress note Choices may include but are not limited to: ??? Nutrition at risk ??? Malnutrition ??? Unable to determine ??? 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 BMI: Body mass index is 36.05kg/m??. BMI Range: Severely Obese Class 2. o Treatment: Nutrition consult, enteral nutrition PROVIDER RESPONSE (Use F2 to respond) Nutrition at risk THIS DOCUMENT IS MAINTAINED A PERMANENT PART OF THE MEDICAL RECORD. documented in this encounter Plan of Treatment Scheduled Orders Name Type Priority Associated Diagnoses Orde r Schedule EKG 12-LEAD - If not done in ED ECG Routine Left-sided sensory deficit present ONCE for 1 Occurrences starting 10/19/2022 until 10/19/2022 PULSE OXIMETRY, SPOT Respiratory Care Routine ONCE for 1 Occu rrences starting 11/11/2022 until 11/11/2022 documented as of this encounter Procedures Procedure Name Priority Date/Time Associated Diagnosis Comments APHERESIS/TRANSFUSION ORDER 11/22/2022 2:11 PM CDT CARDIAC EKG ORDER 11/22/2022 2:1 1 PM CDT PTT [facility] Routine 11/17/2022 2:02 AM CDT PT-INR [facility] AM Draw 11/17/2022 2:02 AM CDT CBC W AUTO DIFFERENTIAL Routine 11/17/2022 2:02 AM CDT BASIC METABOLIC PANEL (CALCIUM TOTAL) Routine 11/17/2022 2:02 AM CDT PHOSPHORUS BLOOD Routine 11/17/2022 2:02 AM CDT HEPATIC FUNCTION PANEL Routine 11/17/2022 2:02 AM CDT MAGNESIUM BLOOD Routine 11/17/2022 2:[address] ABDOMEN PELVIS W CONTRAST Routine 11/16/2022 4:31 PM CDT Aortic valve vegetation (HCC) PTT [facility] Routine 11/16/2022 2:17 AM CDT PT-INR [facility] AM Draw 11/16/2022 2:17 AM CDT DIFFERENTIAL MANUAL Routine 11/16/2022 2 :17 AM CDT CBC W AUTO DIFFERENTIAL Routine 11/16/2022 2:17 AM CDT BASIC METABOLIC PANEL (CALCIUM TOTAL) Routine 11/16/2022 2:17 AM CDT PHOSPHORUS BLOOD Routine 11/16/2022 2:17 AM CDT MAGNESIUM BLOOD Routine 11/16/2022 2:17 AM CDT GRAM STAIN (LAB ORDERED) STAT 11/15/2022 12:27 PM CDT HOLD SPECIMEN CSF Routine 11/15/2022 12:25 PM CDT CULTURE CSF+GRAM STAIN STAT 11/15/2022 12:25 PM CDT MENINGITIS ENCEPHALITIS PCR PANEL CSF Routine 11/15/2022 12:25 PM CDT CULTURE CSF+GRAM STAIN STAT 11/15/2022 12:25 PM CDT CELL COUNT W DIFFERENTIAL CSF STAT 11/15/2022 12:25 PM CDT PROTEIN CSF STAT 11/15/2022 12:25 PM CDT GLUCOSE CSF STAT 11/15/2022 12:25 PM CDT CULTURE FUNGUS OTHER+FUNGUS SMEAR STAT 11/15/2022 12:17 PM CDT CULTURE AFB+SMEAR STAT 11/15/2022 12:17 PM CDT FL LUMBAR PUNCTURE Routine 11/15/2022 12:10 PM CDT Fever, unspecified fever cause EOSINOPHIL URINE SMEAR Routine 11/15/2022 9:57 AM CDT [facility] Routine 11/15/2022 2:12 AM CDT PT-INR [facility] AM Draw 11/15/2022 2:12 AM CDT CBC W AUTO DIFFERENTIAL Routine 11/15/2022 2:12 AM CDT BASIC METABOLIC PANEL (CALCIUM TOTAL) Routine 11/15/2022 2:12 AM CDT PHOSPHORUS BLOOD Routine 11/15/2022 2:12 AM CDT HEPATIC FUNCTION PANEL Routine 11/15/2022 2:12 AM CDT MAGNESIUM BLOOD Routine 11/15/2022 2:12 AM CDT US ABDOMEN LTD W COMP DOPPLER Routine 11/14/2022 9:24 AM CDT Transaminitis [facility] Routine 11/14/2022 2:39 AM CDT PT-[facility]R [facility] AM Draw 11/14/2022 2:39 AM CDT CBC W AUTO DIFFERENTIAL Routine 11/14/2022 2:39 AM CDT BASIC METABOLIC PANEL (CALCIUM TOTAL) Routine 11/14/2022 2:39 AM CDT PHOSPHORUS BLOOD Routine 11/14/2022 2:39 AM CDT HEPATIC FUNCTION PANEL Routine 11/14/2022 2:39 AM CDT MAGNESIUM BLOOD Routine 11/14/2022 2:39 AM CDT PREPARE RBC LEUKOREDUCED UNIT Routine 11/14/2022 1:17 AM CDT PREPARE FFP UNIT(S) STAT 11/14/2022 1 :17 AM CDT CYTOMEGALOVIRUS (CMV) QUANTITATIVE PLASMA Routine 11/13/2022 3:34 PM CDT MARY JO-HERBERT VIRUS QUANT BLOOD STL Routine 11/13/2022 3:34 PM CDT CK BLOOD Routine 11/13/2022 3:34 PM CDT GLUCOSE - POINT OF CARE Routine 11/13/2022 4:14 AM CDT [facility]TT [facility] Routine 11/13/2022 2:10 AM CDT PT-INR [facility] AM Draw 11/13/2022 2:10 AM CDT TSH REFLEX FREE T4 Routine 11/13/2022 2: 10 AM CDT CBC W AUTO DIFFERENTIAL Routine 11/13/2022 2:10 AM CDT BASIC METABOLIC PANEL (CALCIUM TOTAL) Routine 11/13/2022 2:10 AM CDT PHOSPHORUS BLOOD Routine 11/13/2022 2:10 AM CDT HEPATIC FUNCTION PANEL AM Draw 11/13/2022 2:10 AM CDT MAGNESIUM BLOOD Routine 11/13/2022 2:10 AM CDT T4 FREE Routine 11/13/2022 2:10 AM CDT GLUCOSE - POINT OF CARE Routine 11/12/2022 11:52 PM CDT XR CHEST 1VW PORTABLE Routine 11/12/2022 8:44 PM CDT Fever, unspecified fever cause GLUCOSE - POINT OF CARE Routine 11/12/2022 7:40 PM CDT P[facility] Timed 11/12/2022 5:32 AM CDT PT-INR [facility] AM Draw 11/12/2022 5:32 AM CDT CULTURE BLOOD Timed 11/12/2022 5:32 AM CDT CBC W AUTO DIFFERENTIAL Routine 11/12/2022 5:32 AM CDT BASIC METABOLIC PANEL (CALCIUM TOTAL) Routine 11/12/2022 5:32 AM CDT PHOSPHORUS BLOOD Routine 11/12/2022 5:32 AM CDT HEPATIC FUNCTION PANEL AM Draw 11/12/2022 5:32 AM CDT MAGNESIUM BLOOD Routine 11/12/2022 5:32 AM CDT GLUCOSE - POINT OF CARE Routine 11/12/2022 3:44 AM CDT PTT [facility] Timed 11/11/2022 11:51 PM CDT GLUCOSE - POINT OF CARE Routine 11/11/2022 11:33 PM CDT GLUCOSE - POINT OF CARE Routine 11/11/2022 9:25 PM CDT [facility] STAT 11/11/2022 5:03 PM CDT LACTIC ACID BLOOD REFLEX TO REPEAT STAT 11/11/2022 5:03 PM CDT CBC W AUTO DIFFERENTIAL Routine 11/11/2022 5:03 PM CDT BASIC METABOLIC PANEL (CALCIUM TOTAL) Routine 11/11/2022 5:03 PM CDT PHOSPHORUS BLOOD Routine 11/11/2022 5:03 PM CDT MAGNESIUM BLOOD Routine 11/11/2022 5:03 PM CDT PT EVAL AND TREAT Routine 11/11/2022 1:4 8 PM CDT [facility] Timed 11/11/2022 9:28 AM CDT PT-INR [facility] AM Draw 11/11/2022 9:28 AM CDT GLUCOSE - POINT OF CARE Routine 11/11/2022 4:48 AM CDT GLUCOSE - POINT OF CARE Routine 11/11/2022 12:33 AM CDT [facility] Timed 11/10/2022 11:38 PM CDT PT-[facility]R [facility] Timed 11/10/2022 11:38 PM CDT TYPE + SCREEN PANEL Routine 11/10/2022 11:38 PM CDT CBC W AUTO DIFFERENTIAL Routine 11/10/2022 11:38 PM CDT GLUCOSE - POINT OF CARE Routine 11/10/2022 11:28 PM CDT CO ED EGD FLEX TRANSORAL DX 11/10/2022 8:12 PM CDT Acquired gastric wall deformity CBC W AUTO DIFFERENTIAL Routine 11/10/2022 2:24 AM CDT PT-[facility] AM Draw 11/10/2022 2:23 AM CDT BASIC METABOLIC PANEL (CALCIUM TOTAL) Routine 11/10/2022 2:23 AM CDT PHOSPHORUS BLOOD Routine 11/10/2022 2:23 AM CDT MAGNESIUM BLOOD Routine 11/10/2022 2:23 AM CDT MRI BRAIN WWO CONTRAST STAT 11/09/2022 11:50 PM CDT Fever, unspecified fever cause CT ABDOMEN PELVIS W CONTRAST STAT 11/09/2022 4:47 PM CDT Aortic valve vegetation (HCC) HEPATIC FUNCTION PANEL AM Draw 11/09/2022 6:54 AM CDT VANCOMYCIN LEVEL TROUGH Timed 11/09/2022 6:54 AM CDT PT-[facility] AM Draw 11/09/2022 2:37 AM CDT CBC W AUTO DIFFERENTIAL Routine 11/08/2022 11:46 PM CDT BASIC METABOLIC PANEL (CALCIUM TOTAL) Routine 11/08/2022 11:46 PM CDT PHOSPHORUS BLOOD Routine 11/08/2022 11:46 PM CDT MAGNESIUM BLOOD Routine 11/08/2022 11:46 PM CDT VAS BILATERAL VENOUS DUPLEX LE STAT 11/08/2022 12:20 PM CDT Fever, unspecified fever cause VAS BILATERAL VENOUS DUPLEX UE STAT 11/08/2022 12:20 PM CDT Fever, unspecified fever cause PT-[facility]R [facility] AM Draw 11/08/2022 2:54 AM CDT CBC W AUTO DIFFERENTIAL Routine 11/07/2022 10:34 PM CDT BASIC METABOLIC PANEL (CALCIUM TOTAL) Routine 11/07/2022 10:34 PM CDT PHOSPHORUS BLOOD Routine 11/07/2022 10:34 PM CDT MAGNESIUM BLOOD Routine 11/07/2022 10:[address] ANGIO CHEST PULM EMBOLISM STAT 11/07/2022 5:22 PM CDT Fever, unspecified fever cause PT-[facility]R [facility] AM Draw 11/07/2022 3:05 AM CDT [facility] Timed 11/06/2022 11:12 PM CDT CBC W AUTO DIFFERENTIAL Routine 11/06/2022 11:12 PM CDT BASIC METABOLIC PANEL (CALCIUM TOTAL) Routine 11/06/2022 11:12 PM CDT PHOSPHORUS BLOOD Routine 11/06/2022 11:12 PM CDT MAGNESIUM BLOOD Routine 11/06/2022 11:12 PM CDT P[facility] Timed 11/06/2022 6:30 PM CDT ECHO COMPLETE W CONTRAST Routine 11/06/2022 1:49 PM CDT Fever, unspecified fever cause [facility] Timed 11/06/2022 7:40 AM CDT [facility] Timed 11/06/2022 1:36 AM CDT PT-[facility]R [facility] AM Draw 11/06/2022 1:36 AM CDT TSH REFLEX FREE T4 Routine 11/06/2022 1: 36 AM CDT C-REACTIVE PROTEIN JOSE GUADALUPE 11/06/2022 1: 36 AM CDT D-DIMER AM Draw 11/06/2022 1:36 AM CDT CBC W AUTO DIFFERENTIAL Routine 11/06/2022 1:36 AM CDT CBC W AUTO DIFFERENTIAL STAT 11/06/2022 1:36 AM CDT BASIC METABOLIC PANEL (CALCIUM TOTAL) Routine 11/06/2022 1:36 AM CDT PHOSPHORUS BLOOD Routine 11/06/2022 1:36 AM CDT MAGNESIUM BLOOD Routine 11/06/2022 1:36 AM CDT XR ABDOMEN KUB PORTABLE STAT 11/05/2022 5:28 PM CDT Fever, unspecified fever cause [facility]TT [facility] STAT 11/05/2022 4:58 PM CDT RESPIRATORY PANEL WITH SARS-COV-2 BY PCR ([facility]) Routine 11/05/2022 1:10 PM CDT CULTURE URINE Routine 11/05/2022 1:07 PM CDT URINALYSIS REFLEX TO MICROSCOPIC NO CULTURE Routine 11/05/2022 12:54 PM CDT CBC W AUTO DIFFERENTIAL Routine 11/05/2022 12:27 PM CDT BASIC METABOLIC PANEL (CALCIUM TOTAL) Routine 11/05/2022 11:24 AM CDT PHOSPHORUS BLOOD Routine 11/05/2022 11:24 AM CDT MAGNESIUM BLOOD Routine 11/05/2022 11:24 AM CDT BLOOD GAS ART+LYTES+METAB+COOX POC NOTIF STAT 11/05/2022 11:16 AM CDT Primary hypertension [facility]TT [facility] STAT 11/05/2022 11:15 AM CDT CULTURE BLOOD STAT 11/05/2022 10:54 AM CDT XR CHEST 1VW PORTABLE STAT 11/05/2022 9:37 AM CDT Fever, unspecified fever cause [facility] Timed 11/05/2022 3:50 AM CDT PT-INR [facility] AM Draw 11/05/2022 3:[address] HEAD WO CONTRAST Routine 11/05/2022 12:11 AM CDT Right middle cerebral artery stroke (HCC) PTT [facility] Timed 11/04/2022 9:28 PM CDT CBC W AUTO DIFFERENTIAL Routine 11/04/2022 9:28 PM CDT BASIC METABOLIC PANEL (CALCIUM TOTAL) Routine 11/04/2022 9:28 PM CDT PHOSPHORUS BLOOD Routine 11/04/2022 9:28 PM CDT MAGNESIUM BLOOD Routine 11/04/2022 9:28 PM CDT PTT [facility] Timed 11/04/2022 4:17 PM CDT PTT [facility] Timed 11/04/2022 9:31 AM CDT VANCOMYCIN LEVEL TROUGH Timed 11/04/2022 9:31 AM CDT P[facility] Timed 11/04/2022 5:53 AM CDT PT-INR [facility] Routine 11/04/2022 5:53 AM CDT BASIC METABOLIC PANEL (CALCIUM TOTAL) Routine 11/04/2022 5:53 AM CDT PHOSPHORUS BLOOD Routine 11/04/2022 5:53 AM CDT MAGNESIUM BLOOD Routine 11/04/2022 5:53 AM CDT PTT [facility] Timed 11/03/2022 11:53 PM CDT PT-INR [facility] AM Draw 11/03/2022 11:53 PM CDT [facility] STAT 11/03/2022 4:26 PM CDT P[facility] Timed 11/03/2022 10:48 AM CDT GLUCOSE - POINT OF CARE Routine 11/03/2022 5:20 AM CDT [facility] STAT 11/03/2022 4:49 AM CDT PT-INR [facility] AM Draw 11/03/2022 4:49 AM CDT P[facility] Timed 11/02/2022 10:21 PM CDT CBC W AUTO DIFFERENTIAL Routine 11/02/2022 10:21 PM CDT BASIC METABOLIC PANEL (CALCIUM TOTAL) Routine 11/02/2022 10:21 PM CDT PHOSPHORUS BLOOD Routine 11/02/2022 10:21 PM CDT MAGNESIUM BLOOD Routine 11/02/2022 10:21 PM CDT PTT [facility] Timed 11/02/2022 4:37 PM CDT PTT [facility] Timed 11/02/2022 11:12 AM CDT VANCOMYCIN LEVEL TROUGH Timed 11/02/2022 9:17 AM CDT OT EVAL AND TREAT Routine 11/02/2022 7:5 0 AM CDT [facility] STAT 11/02/2022 4:45 AM CDT HEPATITIS C AB SCREEN RFLX NAAT QUANT STAT 11/02/2022 4:45 AM CDT EXPOSURE HIV STAT 11/02/2022 4:45 AM CDT HEPATITIS B PANEL STAT 11/02/2022 4:4 5 AM CDT P[facility] Timed 11/02/2022 1:32 AM CDT PT-INR [facility] AM Draw 11/02/2022 1:32 AM CDT CBC W AUTO DIFFERENTIAL Routine 11/02/2022 1:32 AM CDT BASIC METABOLIC PANEL (CALCIUM TOTAL) Routine 11/02/2022 1:32 AM CDT PHOSPHORUS BLOOD Routine 11/02/2022 1:32 AM CDT MAGNESIUM BLOOD Routine 11/02/2022 1:32 AM CDT PREPARE RBC LEUKOREDUCED UNIT Routine 11/02/2022 1:17 AM CDT PREPARE RBC LEUKOREDUCED UNIT Routine 11/02/2022 1:17 AM CDT PREPARE RBC LEUKOREDUCED UNIT STAT 11/02/2022 1:17 AM CDT Right middle cerebral artery stroke (HCC) CT ABDOMEN WO CONTRAST Routine 2022 6:47 PM CDT 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) CO ED EGD FLEX TRANSORAL DX 2022 2:35 PM CDT Malnutrition, unspecified type (HCC) EGD Routine 2022 2:14 PM CDT PT EVAL AND TREAT Routine 2022 9:3 2 AM CDT PT EVAL AND TREAT Routine 2022 9:1 0 AM CDT PTT [facility] Routine 2022 8:48 AM CDT PTT [facility] Timed 2022 2:40 AM CDT PT-INR [facility] AM Draw 2022 2:40 AM CDT PTT [facility] Routine 2022 12:03 AM CDT CBC W AUTO DIFFERENTIAL Routine 2022 12:03 AM CDT BASIC METABOLIC PANEL (CALCIUM TOTAL) Routine 2022 12:03 AM CDT PHOSPHORUS BLOOD Routine 2022 12:03 AM CDT MAGNESIUM BLOOD Routine 2022 12:03 AM CDT PTT [facility] Timed 10/31/2022 10:11 PM CDT P[facility] Timed 10/31/2022 7:33 PM CDT PTT [facility] Timed 10/31/2022 3:[address] ABDOMEN PELVIS W CONTRAST Routine 10/31/2022 10:16 AM CDT Aortic valve vegetation (HCC) PTT [facility] Timed 10/31/2022 9:48 AM CDT VANCOMYCIN LEVEL TROUGH Timed 10/31/2022 9:48 AM CDT PT-INR [facility] AM Draw 10/31/2022 12:22 AM CDT CBC W AUTO DIFFERENTIAL Routine 10/31/2022 12:22 AM CDT BASIC METABOLIC PANEL (CALCIUM TOTAL) Routine 10/31/2022 12:22 AM CDT PHOSPHORUS BLOOD Routine 10/31/2022 12:22 AM CDT MAGNESIUM BLOOD Routine 10/31/2022 12:22 AM CDT PTT [facility] Timed 10/30/2022 9:24 PM CDT [facility] Timed 10/30/2022 8:[address] HEAD WO CONTRAST STAT 10/30/2022 8 :22 PM CDT Right middle cerebral artery stroke (HCC) PTT [facility] Timed 10/30/2022 4:59 PM CDT FL GLENN W ANGIO TEAM Routine 10/30/2022 2:40 PM CDT Acute lower limb ischemia TRANSFUSE RED BLOOD CELL LEUKOREDUCED UNIT(S) STAT 10/30/2022 1:51 PM CDT ACT LR - POCT ([facility]) Routine 10/30/2022 1:50 PM CDT BLOOD GAS+COOX+LYTES+METAB ARTERIAL POCT Routine 10/30/2022 1:33 PM CDT ACT LR - POCT ([facility]) Routine 10/30/2022 1:32 PM CDT BLOOD GAS+COOX+LYTES+METAB ARTERIAL POCT Routine 10/30/2022 12:59 PM CDT ACT LR - POCT ([facility]) Routine 10/30/2022 12:57 PM CDT TRANSFUSE RED BLOOD CELL LEUKOREDUCED UNIT(S) STAT 10/30/2022 12:57 PM CDT BLOOD GAS ART+LYTES+METAB+COOX POC NOTIF STAT 10/30/2022 12:50 PM CDT Primary hypertension ACT LR - POCT ([facility]) Routine 10/30/2022 12:26 PM CDT PATHOLOGY TISSUE Routine 10/30/2022 12:18 PM CDT Ischemia ACT LR - POCT ([facility]) Routine 10/30/2022 12:16 PM CDT ACT LR - POCT ([facility]) Routine 10/30/2022 12:07 PM CDT CO REMV ART CLOT ILIAC-POP,LEG INCIS 10/30/2022 11:31 AM CDT Ischemia Case Notes KW 10/27 Special Needs SUPINE; c-arm with angio ordered PREPARE RBC LEUKOREDUCED UNIT Routine 10/30/2022 10:38 AM CDT PTT [facility] Timed 10/30/2022 8:39 AM CDT PTT [facility] Timed 10/30/2022 2:37 AM CDT PT-INR [facility] AM Draw 10/30/2022 2:37 AM CDT DIFFERENTIAL MANUAL Routine 10/30/2022 12:17 AM CDT CBC W AUTO DIFFERENTIAL Routine 10/30/2022 12:17 AM CDT BASIC METABOLIC PANEL (CALCIUM TOTAL) Routine 10/30/2022 12:17 AM CDT HCG BETA BLOOD QUANTITATIVE JOSE GUADALUPE 10/30/2022 12:17 AM CDT PHOSPHORUS BLOOD Routine 10/30/2022 12:17 AM CDT MAGNESIUM BLOOD Routine 10/30/2022 12:17 AM CDT PTT [facility] Timed 10/29/2022 8:02 PM CDT P[facility] Timed 10/29/2022 3:41 PM CDT TYPE + SCREEN PANEL Routine 10/29/2022 11:19 AM CDT XR CHEST 1VW PORTABLE STAT 10/29/2022 10:29 AM CDT Hypoxia PTT [facility] Timed 10/29/2022 10:04 AM CDT [facility] Timed 10/29/2022 2:14 AM CDT PT-INR [facility] AM Draw 10/29/2022 2:14 AM CDT DIFFERENTIAL MANUAL Routine 10/29/2022 12:10 AM CDT CBC W AUTO DIFFERENTIAL Routine 10/29/2022 12:10 AM CDT BASIC METABOLIC PANEL (CALCIUM TOTAL) Routine 10/29/2022 12:10 AM CDT PHOSPHORUS BLOOD Routine 10/29/2022 12:10 AM CDT MAGNESIUM BLOOD Routine 10/29/2022 12:10 AM CDT XR ABDOMEN KUB STAT 10/28/2022 11:13 PM CDT Right middle cerebral artery stroke (HCC) GLUCOSE - POINT OF CARE Routine 10/28/2022 10:54 PM CDT PTT [facility] Timed 10/28/2022 9:00 PM CDT GLUCOSE - POINT OF CARE Routine 10/28/2022 5:26 PM CDT PTT [facility] Timed 10/28/2022 3:54 PM CDT GLUCOSE - POINT OF CARE Routine 10/28/2022 12:05 PM CDT PTT [facility] Timed 10/28/2022 9:20 AM CDT VANCOMYCIN LEVEL TROUGH Timed 10/28/2022 9:[address] HEAD WO CONTRAST Routine 10/28/2022 5 :27 AM CDT At high risk for bleeding after thrombolytic therapy GLUCOSE - POINT OF CARE Routine 10/28/2022 4:52 AM CDT XR ABDOMEN KUB PORTABLE STAT 10/28/2022 2:08 AM CDT Right middle cerebral artery stroke (HCC) PTT [facility] Timed 10/28/2022 1:25 AM CDT PT-INR [facility] AM Draw 10/28/2022 1:25 AM CDT BASIC METABOLIC PANEL (CALCIUM TOTAL) Routine 10/28/2022 1:25 AM CDT PHOSPHORUS BLOOD Routine 10/28/2022 1:25 AM CDT MAGNESIUM BLOOD Routine 10/28/2022 1:25 AM CDT GLUCOSE - POINT OF CARE Routine 10/28/2022 1:24 AM CDT DIFFERENTIAL MANUAL STAT 10/27/2022 8 :29 PM CDT CBC W AUTO DIFFERENTIAL STAT 10/27/2022 8:29 PM CDT PTT [facility] Timed 10/27/2022 6:55 PM CDT ANTITHROMBIN III ACTIVITY Routine 10/27/2022 6:55 PM CDT Right middle cerebral artery stroke (HCC) GLUCOSE - POINT OF CARE Routine 10/27/2022 4:56 PM CDT URINALYSIS REFLEX MICROSCOPIC REFLEX CULTURE Routine 10/27/2022 12:08 PM CDT CULTURE URINE STAT 10/27/2022 12:08 PM CDT PTT [facility] Timed 10/27/2022 11:58 AM CDT BARTONELLA HENSELAE ANTIBODY IGM Routine 10/27/2022 11:58 AM CDT BARTONELLA HENSELAE ANTIBODY IGG Routine 10/27/2022 11:58 AM CDT BARTONELLA SPECIES PCR Routine 10/27/2022 11:58 AM CDT Q FEVER IGG/IGM AB PANEL RFLX TITER Routine 10/27/2022 11:58 AM CDT MYCOPLASMA PNEUMONIAE AB IGG Routine 10/27/2022 11:58 AM CDT MYCOPLASMA PNEUMONIAE AB IGM Routine 10/27/2022 11:58 AM CDT CHLAMYDIA ANTIBODY IGG/IGM PANEL Routine 10/27/2022 11:58 AM CDT CULTURE BLOOD FUNGUS Timed 10/27/2022 11:58 AM CDT CULTURE BLOOD AFB Routine 10/27/2022 11:58 AM CDT GLUCOSE - POINT OF CARE Routine 10/27/2022 11:13 AM CDT XR CHEST 1VW PORTABLE STAT 10/27/2022 10:19 AM CDT Leukocytosis, unspecified type GLUCOSE - POINT OF CARE Routine 10/27/2022 6:33 AM CDT PTT [facility] Timed 10/27/2022 6:08 AM CDT PT-INR [facility] AM Draw 10/27/2022 6:[address] HEAD WO CONTRAST Routine 10/27/2022 5 :54 AM CDT 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) Aortic valve vegetation (HCC) PTT [facility] Timed 10/27/2022 12:54 AM CDT DIFFERENTIAL MANUAL Routine 10/27/2022 12:54 AM CDT CBC W AUTO DIFFERENTIAL Routine 10/27/2022 12:54 AM CDT BASIC METABOLIC PANEL (CALCIUM TOTAL) Routine 10/27/2022 12:54 AM CDT PHOSPHORUS BLOOD Routine 10/27/2022 12:54 AM CDT MAGNESIUM BLOOD Routine 10/27/2022 12:54 AM CDT PTT [facility] Timed 10/26/2022 9:12 PM CDT GLUCOSE - POINT OF CARE Routine 10/26/2022 6:33 PM CDT PTT [facility] Timed 10/26/2022 3:59 PM CDT VAS ARTERIAL MULTILEVEL LE JOSE GUADALUPE 10/26/2022 2:59 PM CDT Occlusion of external iliac artery (HCC) GLUCOSE - POINT OF CARE Routine 10/26/2022 12:15 PM CDT PTT [facility] Timed 10/26/2022 11:24 AM CDT VANCOMYCIN LEVEL TROUGH Timed 10/26/2022 8:38 AM CDT LAB MISC TEST STAT 10/26/2022 7:37 AM CDT GLUCOSE - POINT OF CARE Routine 10/26/2022 7:12 AM CDT PTT [facility] Timed 10/26/2022 6:[address] HEAD WO CONTRAST Routine 10/26/2022 4 :55 AM CDT Right middle cerebral artery stroke (HCC) PT-INR [facility] AM Draw 10/26/2022 4:26 AM CDT PTT [facility] Timed 10/26/2022 1:55 AM CDT CBC W AUTO DIFFERENTIAL Routine 10/26/2022 12:02 AM CDT BASIC METABOLIC PANEL (CALCIUM TOTAL) Routine 10/26/2022 12:02 AM CDT PHOSPHORUS BLOOD Routine 10/26/2022 12:02 AM CDT MAGNESIUM BLOOD Routine 10/26/2022 12:02 AM CDT GLUCOSE - POINT OF CARE Routine 10/25/2022 11:14 PM CDT PTT [facility] Timed 10/25/2022 9:02 PM CDT GLUCOSE - POINT OF CARE Routine 10/25/2022 6:54 PM CDT PTT [facility] Routine 10/25/2022 4:41 PM CDT PT-INR SL Routine 10/25/2022 4:[address] CHEST ABDOMEN PELVIS W CONT STAT 10/25/2022 12:55 PM CDT Right middle cerebral artery stroke (HCC) Aortic valve vegetation (HCC) CT HEAD WO CONTRAST STAT 10/25/2022 12:55 PM CDT Right middle cerebral artery stroke (HCC) Aortic valve vegetation (HCC) XR CHEST 1VW PORTABLE Routine 10/25/2022 9:40 AM CDT Right middle cerebral artery stroke (HCC) CULTURE BLOOD STAT 10/25/2022 9:00 AM CDT GLUCOSE - POINT OF CARE Routine 10/25/2022 7:46 AM CDT HEPATITIS C AB SCREEN RFLX NAAT QUANT Routine 10/25/2022 1:39 AM CDT HIV-1 HIV-2 ANTIBODY + HIV P24 AG PANEL Routine 10/25/2022 1:39 AM CDT CBC W AUTO DIFFERENTIAL Routine 10/25/2022 12:07 AM CDT BASIC METABOLIC PANEL (CALCIUM TOTAL) Routine 10/25/2022 12:07 AM CDT PHOSPHORUS BLOOD Routine 10/25/2022 12:07 AM CDT MAGNESIUM BLOOD Routine 10/25/2022 12:07 AM CDT GLUCOSE - POINT OF CARE Routine 10/24/2022 8:16 PM CDT GLUCOSE - POINT OF CARE Routine 10/24/2022 5:10 PM CDT OT EVAL AND TREAT Routine 10/24/2022 2:2 2 PM CDT PT EVAL AND TREAT Routine 10/24/2022 2:2 2 PM CDT EXTUBATION Routine 10/24/2022 2:05 PM CDT XR ABDOMEN KUB PORTABLE STAT 10/24/2022 2:04 PM CDT Dysarthria CULTURE BLOOD STAT 10/24/2022 1:13 PM CDT GLUCOSE - POINT OF CARE Routine 10/24/2022 12:37 PM CDT MRI BRAIN WWO CONTRAST STAT 10/24/2022 10:56 AM CDT 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) GLUCOSE - POINT OF CARE Routine 10/24/2022 9:15 AM CDT LAB MISC TEST Routine 10/23/2022 8:29 PM CDT LUPUS ANTICOAGULANT PANEL Routine 10/23/2022 8:29 PM CDT CARDIOLIPIN ANTIBODY IGA Routine 10/23/2022 8:29 PM CDT CARDIOLIPIN ANTIBODY IGM Routine 10/23/2022 8:29 PM CDT CARDIOLIPIN ANTIBODY IGG Routine 10/23/2022 8:29 PM CDT BETA-2 GLYCOPROTEIN 1 ANTIBODY IGA Routine 10/23/2022 8:29 PM CDT BETA-2 GLYCOPROTEIN 1 ANTIBODY IGG/IGM PANEL Routine 10/23/2022 8:29 PM CDT CBC W AUTO DIFFERENTIAL Routine 10/23/2022 8:29 PM CDT BASIC METABOLIC PANEL (CALCIUM TOTAL) Routine 10/23/2022 8:29 PM CDT PHOSPHORUS BLOOD Routine 10/23/2022 8:29 PM CDT MAGNESIUM BLOOD Routine 10/23/2022 8:29 PM CDT GLUCOSE - POINT OF CARE Routine 10/23/2022 5:57 PM CDT C-REACTIVE PROTEIN Routine 10/23/2022 3: 47 PM CDT ERYTHROCYTE SEDIMENTATION RATE Routine 10/23/2022 3:[address] CARDIAC ANGIO STRUCT MORPH STAT 10/23/2022 3:08 PM CDT 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) XR ABDOMEN KUB PORTABLE STAT 10/23/2022 1:52 PM CDT Dysarthria MRSA DNA PCR STAT 10/23/2022 12:34 PM CDT CULTURE BLOOD STAT 10/23/2022 12:16 PM CDT CULTURE BLOOD Timed 10/23/2022 12:05 PM CDT GLUCOSE - POINT OF CARE Routine 10/23/2022 11:24 AM CDT ECHO SARAH COMPLETE Routine 10/23/2022 9:0 7 AM CDT Right middle cerebral artery stroke (HCC) XR CHEST 1VW PORTABLE Routine 10/23/2022 8:35 AM CDT Right middle cerebral artery stroke (HCC) CT HEAD WO CONTRAST Routine 10/23/2022 5 :52 AM CDT Right middle cerebral artery stroke (HCC) CBC W AUTO DIFFERENTIAL Routine 10/23/2022 1:29 AM CDT BASIC METABOLIC PANEL (CALCIUM TOTAL) Routine 10/23/2022 1:29 AM CDT PHOSPHORUS BLOOD Routine 10/23/2022 1:29 AM CDT MAGNESIUM BLOOD Routine 10/23/2022 1:29 AM CDT GLUCOSE - POINT OF CARE Routine 10/22/2022 11:00 PM CDT GLUCOSE - POINT OF CARE Routine 10/22/2022 5:41 PM CDT GLUCOSE - POINT OF CARE Routine 10/22/2022 2:[address] HEAD WO CONTRAST STAT 10/22/2022 2 :32 PM CDT Right middle cerebral artery stroke (HCC) GLUCOSE - POINT OF CARE Routine 10/22/2022 8:[address] HEAD WO CONTRAST Routine 10/22/2022 5 :35 AM CDT Right middle cerebral artery stroke (HCC) PLATELET COUNT AUTO CITRATED BLOOD AM Draw 10/22/2022 1:53 AM CDT GLUCOSE - POINT OF CARE Routine 10/21/2022 11:18 PM CDT CBC W AUTO DIFFERENTIAL Routine 10/21/2022 11:16 PM CDT BASIC METABOLIC PANEL (CALCIUM TOTAL) Routine 10/21/2022 11:16 PM CDT PHOSPHORUS BLOOD Routine 10/21/2022 11:16 PM CDT MAGNESIUM BLOOD Routine 10/21/2022 11:16 PM CDT GLUCOSE - POINT OF CARE Routine 10/21/2022 6:43 PM CDT GLUCOSE - POINT OF CARE Routine 10/21/2022 12:10 PM CDT XR CHEST 1VW PORTABLE Routine 10/21/2022 8:53 AM CDT Weakness BLOOD GASES ART + COOX PANEL Routine 10/21/2022 8:01 AM CDT TROPONIN-I HIGH SENSITIVE REFLEX 1HOUR Timed 10/21/2022 7:53 AM CDT CBC W AUTO DIFFERENTIAL Routine 10/21/2022 7:53 AM CDT TROPONIN-I HIGH SENSITIVE BASELINE + 1HR STAT 10/21/2022 4:59 AM CDT FACTOR V LEIDEN MUTATION PANEL AM Draw 10/21/2022 4:59 AM CDT RHEUMATOID FACTOR BLOOD QUANTITATIVE AM Draw 10/21/2022 4:59 AM CDT SARAH BLOOD SCREEN W/REFLEX TITER AM Draw 10/21/2022 4:59 AM CDT CBC W/O DIFFERENTIAL Routine 10/21/2022 4:59 AM CDT BASIC METABOLIC PANEL (CALCIUM TOTAL) Routine 10/21/2022 4:59 AM CDT PHOSPHORUS BLOOD Routine 10/21/2022 4:59 AM CDT MAGNESIUM BLOOD Routine 10/21/2022 4:59 AM CDT COMPLEMENT C3 Routine 10/21/2022 4:59 AM CDT GLUCOSE - POINT OF CARE Routine 10/21/2022 4:58 AM CDT GLUCOSE - POINT OF CARE Routine 10/21/2022 1:21 AM CDT BLOOD GASES ART + COOX PANEL STAT 10/20/2022 10:[address] HEAD WO CONTRAST STAT 10/20/2022 9 :13 PM CDT 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) BLOOD GAS+COOX+LYTES+METAB ARTERIAL POCT Routine 10/20/2022 7:36 PM CDT BLOOD GAS ART+LYTES+METAB+COOX POC NOTIF STAT 10/20/2022 7:27 PM CDT Right middle cerebral artery stroke (HCC) CO REMOVE BRAIN FOREIGN BODY 10/20/2022 6:58 PM CDT Cerebrovascular accident (CVA), unspecified mechanism (HCC) Special Needs SUPINE HGB HCT PANEL Routine 10/20/2022 4:40 PM CDT ECHO COMPLETE W BUBBLE STUDY Routine 10/20/2022 4:05 PM CDT Left-sided sensory deficit present XR ABDOMEN KUB PORTABLE STAT 10/20/2022 12:43 PM CDT Right middle cerebral artery stroke (HCC) GLUCOSE - POINT OF CARE Routine 10/20/2022 11:32 AM CDT HEMOGLOBIN A1C JOSE GUADALUPE 10/20/2022 10:[address] HEAD WO CONTRAST Routine 10/20/2022 8 :17 AM CDT Left-sided sensory deficit present GLUCOSE - POINT OF CARE Routine 10/20/2022 7:47 AM CDT GLUCOSE - POINT OF CARE Routine 10/20/2022 7:44 AM CDT BLOOD TYPE VERIFICATION STAT 10/20/2022 4:00 AM CDT LUPUS ANTICOAGULANT PANEL AM Draw 10/20/2022 3:02 AM CDT PROTEIN C ACTIVITY AM Draw 10/20/2022 3: 02 AM CDT PROTEIN S ACTIVITY AM Draw 10/20/2022 3: 02 AM CDT CBC W/O DIFFERENTIAL Routine 10/20/2022 3:02 AM CDT BASIC METABOLIC PANEL (CALCIUM TOTAL) Routine 10/20/2022 3:02 AM CDT LIPID PROFILE Routine 10/20/2022 3:02 AM CDT GLUCOSE - POINT OF CARE Routine 10/19/2022 7:50 PM CDT HCG URINE QUALITATIVE STAT 10/19/2022 2:10 PM CDT URINE DRUG SCREEN IMMUNOASSAY Routine 10/19/2022 2:10 PM CDT IR INTRACRANIAL MECH THROMBECT STAT 10/19/2022 10:41 AM CDT Left-sided sensory deficit present OT EVAL AND TREAT Routine 10/19/2022 9:0 2 AM CDT PT EVAL AND TREAT Routine 10/19/2022 9:0 2 AM CDT PT-INR SL[facility] STAT 10/19/2022 8:24 AM CDT TYPE + SCREEN PANEL STAT 10/19/2022 8 :24 AM CDT CBC W AUTO DIFFERENTIAL STAT 10/19/2022 8:24 AM CDT COMPREHENSIVE METABOLIC PANEL STAT 10/19/2022 8:24 AM CDT EKG 12-LEAD STAT 10/19/2022 8:[address] ANGIO BRAIN NECK STROKE STAT 10/19/2022 8:15 AM CDT Weakness INR WHOLE BLOOD - POINT OF CARE (IP) STROKE Routine 10/19/2022 8:09 AM CDT CREATININE - POCT INTERFACED Routine 10/19/2022 8:[address] BRAIN STROKE STAT 10/19/2022 8:03 AM CDT Weakness GLUCOSE - POINT OF CARE Routine 10/19/2022 7:56 AM CDT CO ED EGD FLEX TRANSORAL DX Malnutrition, unspecified type (HCC) documented in this encounter Results * VAS ARTERIAL ANKLE ARM INDEX (12/26/2022 11:21 AM CDT) Anatomical Region Laterality Modality Ankle / Foot, Upper Extremity In travascular Ultrasound 12/26/2022 10:3 9 AM CDT Narrative Procedure Note Ulises Ahumada MD - 12/26/2022 Valdez Clay MD VASCULAR LAB ORDER NISSA * APHERESIS/TRANSFUSION ORDER (11/22/2022 2:11 PM CDT) Narrative 11/22/2022 2:11 PM CDT Ordered by an unspecified provider. Scanned Document NURSING - VITAL SIGN S AND ASSESSMENT * CARDIAC EKG ORDER (11/22/2022 2:11 PM CDT) Narrative 11/22/2022 2:11 PM CDT Ordered by an unspecified provider. Scanned Document CARDIAC SERVICES ORD ERABLES * (ABNORMAL) HEPATIC FUNCTION PANEL (11/17/2022 2:02 AM CDT) Protein Total 7.0 6.0 - 8.3 g/dL 023 3:10 AM CDT [facility] Albumin 2.8(L) 3.4 - 5.0 g/dL 11/17/2022 3:10 AM CDT [facility] Bilirubin Total 0.4 0.2 - 1.2 mg/dL 10/2022 3:10 AM [facility] Bilirubin Conjugated 0.1 0.1 - 0.5 mg/dL 11/17/2022 3:10 AM [facility] Bilirubin Unconjugated 0.3 Unconjugated Bilirubin is a calculated value: Reference ranges have not been established. mg/dL 11/17/2022 3:10 AM [facility] Alkaline Phosphatase 94 40 - 150 U/L 11/17/2022 3:10 AM [facility] ALT 257(H) 5 - 55 U/L 11/17/2022 3:10 AM [facility] AST 138(H) 5 - 34 U/L 11/17/2022 3:10 AM [facility] Albumin/Globulin Ratio 0.7(L) 1.1 - 2.3 11/17/2022 3:10 AM [facility] Blood BLOOD SPECIMEN / Unknown Lab Venipuncture / Unknown 11/17/2022 2:02 AM CDT 11/17/2022 2:40 AM CDT Good Antunez MD LAB - CHEMISTRY [place] BLACKMAN [address] [address], [facility] [phone] * PHOSPHORUS BLOOD (11/17/2022 2:02 AM CDT) Phosphorus 3.6 2.9 - 5.1 mg/dL 11/17/2022 3:10 AM T [facility] Blood BLOOD SPECIMEN / Unknown Lab Venipuncture / Unknown 11/17/2022 2:02 AM CDT 11/17/2022 2:40 AM CDT Good Antunez MD LAB - CHEMISTRY [place] BLACKMAN [address] [address], [place] [phone] * MAGNESIUM BLOOD (11/17/2022 2:02 AM CDT) Magnesium 2.5 1.6 - 2.6 mg/dL 11/17/2022 3:10 AM [facility] Blood BLOOD SPECIMEN / Unknown Lab Venipuncture / Unknown 11/17/2022 2:02 AM CDT 11/17/2022 2:40 AM CDT Good Antunez MD LAB - CHEMISTRY B[place] BLACKMAN [facility] Organization Address City/State/ZIP Co de Phone Number [facility] [address] [place] [address], [facility] [phone] * (ABNORMAL) BASIC METABOLIC PANEL (CALCIUM TOTAL) (11/17/2022 2:02 AM CDT) BUN 14 7 - 26 mg/dL 11/17/2022 3:10 AM [facility] Creatinine 0.62 0.56 - 0.96 mg/dL 11/17/2022 3:10 AM [facility] Sodium 138 136 - 145 mmol/L 11/17/2022 3:10 AM [facility] Potassium 4.0 3.5 - 4.5 mmol/L 11/17/2022 3:10 AM [facility] Chloride 99 98 - 107 mmol/L 11/17/2022 3:10 AM [facility] CO2 27 22 - 29 mmol/L 11/17/2022 3:10 AM [facility] Glucose 125(H) 70 - 115 mg/dL 11/17/2022 3:10 AM [facility] Calcium 8.9 8.4 - 10.2 mg/dL 11/17/2022 3:10 AM [facility] Anion Gap 12 6 - 16 11/17/2022 3:10 AM [facility] BUN/Creatinine Ratio 23 7 - 23 11/17/2022 3:10 AM [facility] Osmolality Calculated 288 270 - 300 mOsm/kg 11/17/2022 3:10 AM [facility] eGFR by CKD-EPI >90 >=90 mL/min/1.7 3 m2 11/17/2022 3:10 AM [facility] Blood BLOOD SPECIMEN / Unknown Lab Venipuncture / Unknown 11/17/2022 2:02 AM CDT 11/17/2022 2:40 AM CDT Good Antunez MD LAB - CHEMISTRY [place] BLACKMAN [facility] Organization Address City/State/ZIP Co de Phone Number [facility] [address] [place] [address], [facility] [phone] * (ABNORMAL) CBC W AUTO DIFFERENTIAL (11/17/2022 2:02 AM CDT) WBC 9.4 3.5 - 10.5 10? 3 /uL 11/17/2022 2:58 AM [facility] RBC 3.57(L) 3.80 - 5.20 10? 6 /uL 11/17/2022 2:58 AM [facility] Hemoglobin 10.4(L) 12.0 - 15.6 g/dL 11/17/2022 2:58 AM [facility] Hematocrit 33.4(L) 35.0 - 45.0 % 11/17/2022 2:58 AM [facility] MCV 93.6 80.7 - 98.3 fL 11/17/2022 2:58 AM [facility] MCH 29.1 26.7 - 34.0 pg 11/17/2022 2:58 AM [facility] MCHC 31.1 30.8 - 35.9 g/dL 11/17/2022 2:58 AM [facility] RDW-SD 52.4(H) 36.0 - 50.0 fL 11/17/2022 2:58 AM [facility] RDW-CV 15.9(H) 11.2 - 14.8 % 11/17/2022 2:58 AM [facility] Platelet Count 505(H) 150 - 400 10? 3 /uL 11/17/2022 2:58 AM [facility] MPV 11.0 9.4 - 12.9 fL 11/17/2022 2:58 AM [facility] nRBC Absolute 0.00 0 10? 3 /uL 11/17/2022 2:58 AM [facility] nRBC Auto 0.0 0 /100 WBC 11/17/2022 2:58 AM [facility] Neutrophils % 48.8 35.0 - 70.0 % 11/17/2022 2:58 AM [facility] Lymphocytes % 36.2 20.0 - 43.0 % 11/17/2022 2:58 AM [facility] Monocytes % 10.2 5.0 - 13.0 % 11/17/2022 2:58 AM [facility] Eosinophils % 3.1 0.0 - 6.0 % 11/17/2022 2:58 AM [facility] Basophil % 0.4 0.0 - 2.0 % 11/17/2022 2:58 AM [facility] Neutrophils Absolute 4.59 1.60 - 7.00 10? 3 /uL 11/17/2022 2:58 AM [facility] Lymphocyte Absolute 3.41 1.10 - 3.90 10? 3 /uL 11/17/2022 2:58 AM [facility] Monocytes Absolute 0.96 0.26 - 1.07 10? 3 /uL 11/17/2022 2:58 AM [facility] Eosinophils Absolute 0.29 0.00 - 0.47 10? 3 /uL 11/17/2022 2:58 AM [facility] Basophils Absolute 0.04 0.00 - 0.08 10? 3 /uL 11/17/2022 2:58 AM [facility] Immature Granulocytes % 1.3(H) 0.0 - 1.0 % 11/17/2022 2:58 AM [facility] Immature Granulocytes Absolute 0.12 11/17/2022 2:58 AM [facility] Blood BLOOD SPECIMEN / Unknown Lab Venipuncture / Unknown 11/17/2022 2:02 AM CDT 11/17/2022 2:39 AM CDT Good Antunez MD LAB - HEMATOLOGY ORD ERABLES [place] [id number] [place] [address], [facility] [phone] * PTT [facility] (11/17/2022 2:02 AM CDT) APTT 34.4 23.0 - 38.4 Seconds 11/17/2022 3:05 AM CDT [facility] Comment:Suggested therapeuti c range for full dose I.V. unfractionated heparin therapy for venous thromboembolism is 71 to 109 seconds. Blood BLOOD SPECIMEN / Unknown Lab Venipuncture / Unknown 11/17/2022 2:02 AM CDT 11/17/2022 2:39 AM CDT Good Antunez MD LAB - COAGULATION OR DERABLES Performing Organization Address City/[facility] Co de Phone Number [address] [address], [facility] [phone] * PT-INR [facility] (11/17/2022 2:02 AM CDT) PT 14.4 12.1 - 14.8 Seconds 11/17/2022 3:05 AM CDT [facility] INR 1.1 See Comment 11/17/2022 3:05 AM CDT [facility] Comment:The suggested therap eutic range for standard coumadin (warfarin) therapy is an INR of 2.0-3.0. For high-risk patients (Mechanical Mitral Valve Prosthesis, etc.), the suggested prophylactic therapeutic range is an INR of 2.5-3.5. Blood BLOOD SPECIMEN / Unknown Lab Venipuncture / Unknown 11/17/2022 2:02 AM CDT 11/17/2022 2:39 AM CDT Emir Vail MD LAB - COAGULATION OR DERABLES Performing Organization Address City/[facility]/ZIP Co de Phone Number [address] [address], [facility] [phone] * CT ABDOMEN PELVIS W CONTRAST (11/16/2022 4:31 PM CDT) Anatomical Region Laterality Modality Abdomen, Pelvis [...] resolved. > Dictated by Abdifatah Jean MD (resident services coordinator). I, Alexx Lopez have personally reviewed and interpreted this examination/study. > Interpreting Provider: Alexx Lopez on 11/17/2022 11:31 AM Narrative 11/17/2022 11:31 AM CDT PROCEDURE: ??CT ABDOMEN PELVIS W CONTRAST, DATE/TIME OF EXAM: ??11/16/2022 4:32 PM, LOCATION ??[facility] INDICATION: I33.0: Aortic valve vegetation ADDITIONAL CLINICAL [...] ABDOMEN PELVIS W CONTRAST, DATE/TIME OF EXAM: :32 PM, LOCATION [facility] INDICATION: I33.0: Aortic valve vegetation ADDITIONAL CLINICAL [...] resolved. > Dictated by Abdifatah Jean MD (resident services coordinator). I, Alexx Lopez have personally reviewed and interpreted this examination/study. > Interpreting Provider: Alexx Lopez on 11/17/2022 11:31 AM Good Antunez MD CT ORDERABLES * (ABNORMAL) DIFFERENTIAL MANUAL (11/16/2022 2:17 AM CDT) WBC (corrected for NRBC) 7.3 10? 3 /uL 11/16/2022 4:29 AM [facility] Total Cell Count 100 11/17/19 23 4:29 AM [facility] Neutrophils Absolute Manual 4.60 1.60 - 7.00 10? 3 /uL 11/16/2022 4:29 AM [facility] Comment:(BANDS+SEGS) x WBC = NEUT # (ANC) Lymphocyte Absolute Manual 1.75 1.10 - 3.90 10? 3 /uL 11/16/2022 4:29 AM [facility] Monocytes Absolute Manual 0.80 0.26 - 1.07 10? 3 /uL 11/16/2022 4:29 AM [facility] Eosinophils Absolute Manual 0.15 0.00 - 0.47 10? 3 /uL 11/16/2022 4:29 AM [facility] Band % Manual 1 0 - 10 % 11/16/2022 4:29 AM [facility] Neutrophil % Manual 62 35 - 70 % 11/16/2022 4:29 AM [facility] Lymphocyte % Manual 24 20 - 43 % 11/16/2022 4:29 AM [facility] Monocytes % Manual 11 5 - 13 % 11/16/2022 4:29 AM [facility] Eosinophils % Manual 2 0 - 6 % 11/16/2022 4:29 AM [facility] Platelet Estimate Adequate Adequate 11/16/2022 4:29 AM CDT [facility] Anisocytosis Occasional( A) None 11/16/2022 4:29 AM CDT [facility] Polychromasia Few(A) None 11/16/2022 4:29 AM CDT [facility] Ovalocytes Occasional( A) None 11/16/2022 4:29 AM CDT [facility] Eduardo Cells Occasional( A) None 11/16/2022 4:29 AM CDT [facility] Smudge Cells Rare(A) None 11/16/2022 4:29 AM CDT [facility] Blood BLOOD SPECIMEN / Unknown Lab Venipuncture / Unknown 11/16/2022 2:17 AM CDT 11/16/2022 3:01 AM CDT Good Antunez MD LAB - HEMATOLOGY ORD ERABLES Performing Organization Address City/[facility]/ZIP Co de Phone Number [address] [address], [facility] [phone] * PHOSPHORUS BLOOD (11/16/2022 2:17 AM CDT) Phosphorus 3.5 2.9 - 5.1 mg/dL 11/16/2022 3:30 AM CDT [facility] Blood BLOOD SPECIMEN / Unknown Lab Venipuncture / Unknown 11/16/2022 2:17 AM CDT 11/16/2022 3:02 AM CDT Good Antunez MD LAB - CHEMISTRY ORDDanyelle BLACKMAN [facility] [address] [place] [phone], [facility] [phone] * MAGNESIUM BLOOD (11/16/2022 2:17 AM CDT) Magnesium 2.4 1.6 - 2.6 mg/dL 11/16/2022 3:30 AM CDT [facility] Blood BLOOD SPECIMEN / Unknown Lab Venipuncture / Unknown 11/16/2022 2:17 AM CDT 11/16/2022 3:02 AM CDT Good Antunez MD LAB - CHEMISTRY [place] BLACKMAN [facility] [address] [place] [address], [facility] [phone] * (ABNORMAL) BASIC METABOLIC PANEL (CALCIUM TOTAL) (11/16/2022 2:17 AM CDT) BUN 13 7 - 26 mg/dL 11/16/2022 3:30 AM [facility] Creatinine 0.57 0.56 - 0.96 mg/dL 11/16/2022 3:30 AM [facility] Sodium 139 136 - 145 mmol/L 11/16/2022 3:30 AM [facility] Potassium 4.0 3.5 - 4.5 mmol/L 11/16/2022 3:30 AM [facility] Chloride 104 98 - 107 mmol/L 11/16/2022 3:30 AM [facility] CO2 27 22 - 29 mmol/L 11/16/2022 3:30 AM [facility] Glucose 129(H) 70 - 115 mg/dL 11/16/2022 3:30 AM [facility] Calcium 8.8 8.4 - 10.2 mg/dL 11/16/2022 3:30 AM [facility] Anion Gap 12 8 - 18 11/16/2022 3:30 AM [facility] BUN/Creatinine Ratio 23 7 - 23 11/16/2022 3:30 AM [facility] Osmolality Calculated 290 270 - 300 mOsm/kg 11/16/2022 3:30 AM [facility] eGFR by CKD-EPI >90 >=90 mL/min/1.7 3 m2 11/16/2022 3:30 AM [facility] Blood BLOOD SPECIMEN / Unknown Lab Venipuncture / Unknown 11/16/2022 2:17 AM CDT 11/16/2022 3:02 AM CDT Good Antunez MD LAB - CHEMISTRY [place] BLACKMAN [facility] [address] [place] [address], [facility] [phone] * (ABNORMAL) CBC W AUTO DIFFERENTIAL (11/16/2022 2:17 AM CDT) WBC 7.3 3.5 - 10.5 10? 3 /uL 11/16/2022 3:12 AM T [facility] RBC 3.49(L) 3.80 - 5.20 10? 6 /uL 11/16/2022 3:12 AM [facility] Hemoglobin 10.1(L) 12.0 - 15.6 g/dL 11/16/2022 3:12 AM [facility] Hematocrit 32.6(L) 35.0 - 45.0 % 11/16/2022 3:12 AM [facility] MCV 93.4 80.7 - 98.3 fL 11/16/2022 3:12 AM [facility] MCH 28.9 26.7 - 34.0 pg 11/16/2022 3:12 AM [facility] MCHC 31.0 30.8 - 35.9 g/dL 11/16/2022 3:12 AM [facility] RDW-SD 51.5(H) 36.0 - 50.0 fL 11/16/2022 3:12 AM [facility] RDW-CV 15.6(H) 11.2 - 14.8 % 11/16/2022 3:12 AM [facility] Platelet Count 446(H) 150 - 400 10? 3 /uL 11/16/2022 3:12 AM [facility] MPV 10.9 9.4 - 12.9 fL 11/16/2022 3:12 AM [facility] nRBC Absolute 0.00 0 10? 3 /uL 11/16/2022 3:12 AM [facility] nRBC Auto 0.0 0 /100 WBC 11/16/2022 3:12 AM [facility] Blood BLOOD SPECIMEN / Unknown Lab Venipuncture / Unknown 11/16/2022 2:17 AM CDT 11/16/2022 3:01 AM CDT Good Antunez MD LAB - HEMATOLOGY ORD ERABLES Performing Organization Address [facility]/ZIP Co de Phone Number [address] [address], [facility] [phone] * PTT [facility] (11/16/2022 2:17 AM CDT) APTT 26.0 23.0 - 38.4 Seconds 11/16/2022 3:23 AM CDT [facility] Comment:Suggested therapeuti c range for full dose I.V. unfractionated heparin therapy for venous thromboembolism is 71 to 109 seconds. Blood BLOOD SPECIMEN / Unknown Lab Venipuncture / Unknown 11/16/2022 2:17 AM CDT 11/16/2022 3:02 AM CDT Good Antunez MD LAB - COAGULATION OR DERABLES Performing Organization Address [facility] Co de Phone Number [address] [address], [facility] [phone] * PT-INR [facility] (11/16/2022 2:17 AM CDT) PT 13.9 12.1 - 14.8 Seconds 11/16/2022 3:23 AM CDT [facility] INR 1.1 See Comment 11/16/2022 3:23 AM CDT [facility] Comment:The suggested therap eutic range for standard coumadin (warfarin) therapy is an INR of 2.0-3.0. For high-risk patients (Mechanical Mitral Valve Prosthesis, etc.), the suggested prophylactic therapeutic range is an INR of 2.5-3.5. Blood BLOOD SPECIMEN / Unknown Lab Venipuncture / Unknown 11/16/2022 2:17 AM CDT 11/16/2022 3:02 AM CDT Emir Vail MD LAB - COAGULATION OR DERABLES Performing Organization Address City/[facility]/ZIP Co de Phone Number [address] [address], [facility] [phone] * GRAM STAIN (LAB ORDERED) (11/15/2022 12:27 PM CDT) Gram Stain No polymorphonuclear cells 11/15/2022 4:45 PM CDT [facility] Gram Stain No organisms seen 023 4:45 PM CDT [facility] Microbiology Collection / Unknown 11/15/2022 12:27 PM CDT 11/15/2022 12:27 PM CDT Good Antunez MD LAB - MICROBIOLOGY O DIONI [facility] [address] [place] [phone], [facility] [phone] * CULTURE CSF+GRAM STAIN (11/15/2022 12:25 PM CDT) Culture No growth ROSELIA 11/22/2022 4:18 AM CDT [facility] Gram Stain No polymorphonuclear cells 11/22/2022 4:18 AM CDT [facility] Gram Stain No organisms seen 023 4:18 AM CDT [facility] Cerebral spinal fluid CEREBROSPINAL FLUID SPECIMEN / Unknown Collection / Unknown 11/15/2022 12:25 PM CDT 11/15/2022 12:25 PM CDT Good Antunez MD LAB - MICROBIOLOGY O DIONI [facility] [address] [place] [address], [facility] [phone] * HOLD SPECIMEN CSF (11/15/2022 12:25 PM CDT) Specimen Hold 11/15/2022 1:32 PM CDT [facility] Comment:The Hold Sample has been received in the lab and will be held for 30 days. Cerebral spinal fluid CEREBROSPINAL FLUID SPECIMEN / Unknown Collection / Unknown 11/15/2022 12:25 PM CDT 11/15/2022 12:25 PM CDT Good Antunez MD LAB - BODY FLUID ORD ERABLES [facility] [address] [place] [address], [facility] [phone] * MENINGITIS ENCEPHALITIS PCR PANEL CSF (11/15/2022 12:25 PM CDT) Listeria monocytogenes PCR Not Detected 11/17/2022 7:00 AM CDT [facility] ([facility]) Escherichia coli K1 PCR Not Detected 11/17/2022 7:00 AM CDT [facility] ([facility]) Haemophilus influenzae PCR Not Detected 11/17/2022 7:00 AM CDT [facility] ([facility]) Neisseria meningitidis PCR Not Detected 11/17/2022 7:00 AM CDT [facility] ([facility]) Streptococcus agalactiae PCR Not Detected 11/17/2022 7:00 AM CDT [facility] ([facility]) Streptococcus pneumoniae PCR Not Detected 11/17/2022 7:00 AM CDT [facility] ([facility]) Cytomegalovirus PCR Not Detected 11/17/2022 7:00 AM CDT [facility] ([facility]) Enterovirus PCR Not Detected 11/17/2022 7:00 AM CDT [facility] ([facility]) Herpes Simplex Virus 1 PCR Not Detected 11/17/2022 7:00 AM CDT [facility] ([facility]) Herpes Simplex Virus 2 PCR Not Detected 11/17/2022 7:00 AM CDT [facility] ([facility]) Human Herpesvirus 6 PCR Not Detected 11/17/2022 7:00 AM CDT [facility] ([facility]) Human parechovirus PCR Not Detected 11/17/2022 7:00 AM CDT [facility] ([facility]) Varicella zoster virus PCR Not Detected 11/17/2022 7:00 AM CDT [facility] ([facility]) Cryptococcus neoformans/gattii PCR Not Detected 11/17/2022 7:00 AM CDT [facility] ([facility]) Comment: INTERPRETIVE INFORMATION: Meningitis Encephalitis Panel by [...] factors and other laboratory information. Performed By: [facility] [employer] [address] [place] [address] Microfilm Mounter: Boo Bond MD, PhD CLIA Number: [id number] Cerebral spinal fluid CEREBROSPINAL FLUID SPECIMEN / Unknown Collection / Unknown 11/15/2022 12:25 PM CDT 11/15/2022 12:25 PM CDT Good Antunez MD LAB - MICROBIOLOGY O RDERABLES [facility] ([facility]) [address] [place] [address], [facility] * CELL COUNT W DIFFERENTIAL CSF (11/15/2022 12:25 PM CDT) Color Fluid Colorless Colorless, Straw 11/15/2022 12:42 PM CDT [facility] Clarity Fluid Clear Clear 11/15/2022 12:42 PM CDT [facility] Volume Fluid 3.5 mL 11/15/2022 12:42 PM CDT [facility] WBC Calculation Fluid 1 0 - 5 x10e6/L 11/15/2022 12:42 PM CDT [facility] RBC Calculation 4 x10e6/L 12:42 PM CDT [facility] Xanthochromia Fluid Negative Negative 11/15/2022 12:42 PM CDT [facility] Differential 11/15/2022 12:42 PM CDT [facility] Comment:No differential perf ormed per procedure. Cerebral spinal fluid CEREBROSPINAL FLUID SPECIMEN / Unknown Collection / Unknown 11/15/2022 12:25 PM CDT 11/15/2022 12:25 PM CDT Narrative [facility] - 11/15/2022 12:42 PM CDT No reference ranges established for body fluid cell counts. The reference ranges provided are derived from published literature. The test results must be integrated into the clinical context for interpretation. Good Antunez MD LAB - BODY FLUID ORD ERABLES Performing Organization Address City/[facility]/ZIP Co de Phone Number [address] [address], [facility] [phone] * PROTEIN CSF (11/15/2022 12:25 PM CDT) Protein CSF 34 15 - 45 mg/dL 11/15/2022 1:15 PM CDT [facility] Cerebral spinal fluid CEREBROSPINAL FLUID SPECIMEN / Unknown Collection / Unknown 11/15/2022 12:25 PM CDT 11/15/2022 12:25 PM CDT Good Antunez MD LAB - BODY FLUID ORD ERABLES Performing Organization Address City/[facility]/ZIP Co de Phone Number [address] [address], [facility] [phone] * GLUCOSE CSF (11/15/2022 12:25 PM CDT) Glucose CSF 57 40 - 70 mg/dL 11/15/2022 1:15 PM CDT [facility] Cerebral spinal fluid CEREBROSPINAL FLUID SPECIMEN / Unknown Collection / Unknown 11/15/2022 12:25 PM CDT 11/15/2022 12:25 PM CDT Good Antunez MD LAB - BODY FLUID ORD ERABLES Performing Organization Address City/[facility]/ZIP Co de Phone Number [address] [address], [facility] [phone] * CULTURE FUNGUS OTHER+FUNGUS SMEAR (11/15/2022 12:17 PM CDT) Culture No fungus isolated ROSELIA 12/11/2022 7:[address] [facility] Fungus Stain No yeast or hyphae seen 12/11/2022 7:[address] [facility] Microbiology CEREBROSPINAL FLUID SPECIMEN / Unknown Collection / Unknown 11/15/2022 12:17 PM CDT 11/15/2022 12:29 PM CDT Good Antunez MD LAB - MICROBIOLOGY O RDDIMAS Performing Organization Address City/[facility]/ZIP Co de Phone Number [facility] [address] [place] [address], [facility] [phone] * CULTURE AFB+SMEAR (11/15/2022 12:17 PM CDT) Culture No acid-fast bacillus isolated 12/25/2022 7:40 AM CDT [facility] AFB Smear No acid-fast bacilli seen 12/25/2022 7:40 AM CDT [facility] Microbiology CEREBROSPINAL FLUID SPECIMEN / Unknown Collection / Unknown 11/15/2022 12:17 PM CDT 11/15/2022 12:29 PM CDT Good Antunez MD LAB - MICROBIOLOGY O DIONI Performing Organization Address City/[facility] Co de Phone Number [facility] [address] [place] [address], [facility] [phone] * FL LUMBAR PUNCTURE (11/15/2022 12:10 PM CDT) Anatomical Region Laterality Modality Spine Radiographic Irene ging 11/15/2022 1:13 PM CDT Impressions 11/15/2022 2:16 PM CDT IMPRESSION: 1.Successful lumbar puncture under fluoroscopic guidance at L3-L4. > Dictated by Royer Stovall MD (resident services coordinator). I, Oriana Suarez MD have personally reviewed and interpreted this examination/study. > Interpreting Provider: Oriana Suarez MD on 11/15/2022 2:16 PM Narrative 11/15/2022 2:16 PM CDT PROCEDURE: ??FL LUMBAR PUNCTURE, DATE/TIME OF EXAM: ??11/15/2022 1:24 PM, LOCATION ??[facility] INDICATION: R50.9: Fever, unspecified fever cause ADDITIONAL [...] DATE/TIME OF EXAM: 11/15/2022 1:24 PM, LOCATION [facility] INDICATION: R50.9: Fever, unspecified fever cause ADDITIONAL [...] L3-L4. > Dictated by Royer Stovall MD (resident services coordinator). I, Oriana Suarez MD have personally reviewed and interpreted this examination/study. > Interpreting Provider: Oriana Suarez MD on 11/15/2022 2:16 PM Good Antunez MD FLUOROSCOPY ORDERABL ES * (ABNORMAL) EOSINOPHIL URINE SMEAR (11/15/2022 9:57 AM CDT) Eosin Stain Urine Rare(A) None 11/15/2022 12:46 PM CDT [facility] Urine URINE SPECIMEN OBTAINED BY CLEAN CATCH PROCEDURE / Unknown Collection / Unknown 11/15/2022 9:57 AM CDT 11/15/2022 10:00 AM CDT Good Antunez MD LAB - URINE CHEMISTR Y ORDERABLES [facility] [address] [address], [facility] [phone] * (ABNORMAL) HEPATIC FUNCTION PANEL (11/15/2022 2:12 AM CDT) Protein Total 6.5 6.0 - 8.3 g/dL 023 3:40 AM CDT [facility] Albumin 2.5(L) 3.4 - 5.0 g/dL 11/15/2022 3:40 AM CDT [facility] Bilirubin Total 0.3 0.2 - 1.2 mg/dL 08/2022 3:40 AM CDT [facility] Bilirubin Conjugated 0.1 0.1 - 0.5 mg/dL 11/15/2022 3:40 AM T [facility] Bilirubin Unconjugated 0.2 Unconjugated Bilirubin is a calculated value: Reference ranges have not been established. mg/dL 11/15/2022 3:40 AM [facility] Alkaline Phosphatase 80 40 - 150 U/L 11/15/2022 3:40 AM [facility] ALT 237(H) 5 - 55 U/L 11/15/2022 3:40 AM T [facility] AST 104(H) 5 - 34 U/L 11/15/2022 3:40 AM [facility] Albumin/Globulin Ratio 0.6(L) 1.1 - 2.3 11/15/2022 3:40 AM T [facility] Blood BLOOD SPECIMEN / Unknown Lab Venipuncture / Unknown 11/15/2022 2:12 AM CDT 11/15/2022 3:07 AM CDT Good Antunez MD LAB - CHEMISTRY [facility] [facility] [address] [address], [facility] [phone] * PHOSPHORUS BLOOD (11/15/2022 2:12 AM CDT) Phosphorus 3.0 2.9 - 5.1 mg/dL 11/15/2022 3:38 AM CDT [facility] Blood BLOOD SPECIMEN / Unknown Lab Venipuncture / Unknown 11/15/2022 2:12 AM CDT 11/15/2022 3:07 AM CDT Good Antunez MD LAB - CHEMISTRY [place] [facility] [address] [address], [facility] [phone] * MAGNESIUM BLOOD (11/15/2022 2:12 AM CDT) Magnesium 2.0 1.6 - 2.6 mg/dL 11/15/2022 3:38 AM [facility] Blood BLOOD SPECIMEN / Unknown Lab Venipuncture / Unknown 11/15/2022 2:12 AM CDT 11/15/2022 3:07 AM T Good Antunez MD LAB - CHEMISTRY [facility] Organization Address City/State/ZIP Co de Phone Number [facility] [address] [place] [address], [facility] [phone] * (ABNORMAL) BASIC METABOLIC PANEL (CALCIUM TOTAL) (11/15/2022 2:12 AM CDT) BUN 12 7 - 26 mg/dL 11/15/2022 3:38 AM [facility] Creatinine 0.50(L) 0.56 - 0.96 mg/dL 11/15/2022 3:38 AM [facility] Sodium 137 136 - 145 mmol/L 11/15/2022 3:38 AM [facility] Potassium 4.0 3.5 - 4.5 mmol/L 11/15/2022 3:38 AM [facility] Chloride 103 98 - 107 mmol/L 11/15/2022 3:38 AM [facility] CO2 26 22 - 29 mmol/L 11/15/2022 3:38 AM [facility] Glucose 115 70 - 115 mg/dL 11/15/2022 3:38 AM [facility] Calcium 8.6 8.4 - 10.2 mg/dL 11/15/2022 3:38 AM [facility] Anion Gap 12 8 - 18 11/15/2022 3:38 AM [facility] BUN/Creatinine Ratio 24(H) 7 - 23 11/15/2022 3:38 AM [facility] Osmolality Calculated 285 270 - 300 mOsm/kg 11/15/2022 3:38 AM [facility] eGFR by CKD-EPI >90 >=90 mL/min/1.7 3 m2 11/15/2022 3:38 AM [facility] Blood BLOOD SPECIMEN / Unknown Lab Venipuncture / Unknown 11/15/2022 2:12 AM CDT 11/15/2022 3:07 AM CDT Good Antunez MD LAB - CHEMISTRY [facility] Organization Address City/State/ZIP Co de Phone Number [address] [address], [facility] [phone] * (ABNORMAL) CBC W AUTO DIFFERENTIAL (11/15/2022 2:12 AM CDT) WBC 5.5 3.5 - 10.5 10? 3 /uL 11/15/2022 3:13 AM CDT [facility] RBC 3.51(L) 3.80 - 5.20 10? 6 /uL 11/15/2022 3:13 AM [facility] Hemoglobin 10.0(L) 12.0 - 15.6 g/dL 11/15/2022 3:13 AM [facility] Hematocrit 32.6(L) 35.0 - 45.0 % 11/15/2022 3:13 AM [facility] MCV 92.9 80.7 - 98.3 fL 11/15/2022 3:13 AM [facility] MCH 28.5 26.7 - 34.0 pg 11/15/2022 3:13 AM T [facility] MCHC 30.7(L) 30.8 - 35.9 g/dL 11/15/2022 3:13 AM [facility] RDW-SD 50.4(H) 36.0 - 50.0 fL 11/15/2022 3:13 AM [facility] RDW-CV 15.2(H) 11.2 - 14.8 % 11/15/2022 3:13 AM [facility] Platelet Count 404(H) 150 - 400 10? 3 /uL 11/15/2022 3:13 AM [facility] MPV 11.1 9.4 - 12.9 fL 11/15/2022 3:13 AM [facility] nRBC Absolute 0.00 0 10? 3 /uL 11/15/2022 3:13 AM [facility] nRBC Auto 0.0 0 /100 WBC 11/15/2022 3:13 AM CDT [facility] Neutrophils % 44.1 35.0 - 70.0 % 11/15/2022 3:13 AM T [facility] Lymphocytes % 35.4 20.0 - 43.0 % 11/15/2022 3:13 AM T [facility] Monocytes % 8.9 5.0 - 13.0 % 11/15/2022 3:13 AM T [facility] Eosinophils % 10.3(H) 0.0 - 6.0 % 11/15/2022 3:13 AM T [facility] Basophil % 0.4 0.0 - 2.0 % 11/15/2022 3:13 AM T [facility] Neutrophils Absolute 2.43 1.60 - 7.00 10? 3 /uL 11/15/2022 3:13 AM T [facility] Lymphocyte Absolute 1.95 1.10 - 3.90 10? 3 /uL 11/15/2022 3:13 AM CDT [facility] Monocytes Absolute 0.49 0.26 - 1.07 10? 3 /uL 11/15/2022 3:13 AM CDT [facility] Eosinophils Absolute 0.57(H) 0.00 - 0.47 10? 3 /uL 11/15/2022 3:13 AM T [facility] Basophils Absolute 0.02 0.00 - 0.08 10? 3 /uL 11/15/2022 3:13 AM T [facility] Immature Granulocytes % 0.9 0.0 - 1.0 % 11/15/2022 3:13 AM T [facility] Immature Granulocytes Absolute 0.05 11/15/2022 3:13 AM T [facility] Blood BLOOD SPECIMEN / Unknown Lab Venipuncture / Unknown 11/15/2022 2:12 AM CDT 11/15/2022 3:07 AM CDT Good Antunez MD LAB - HEMATOLOGY ORD ERABLES [facility] [address] [place] [address], [facility] [phone] * PTT [facility] (11/15/2022 2:12 AM CDT) APTT 28.2 23.0 - 38.4 Seconds 11/15/2022 3:34 AM CDT [facility] Comment:Suggested therapeuti c range for full dose I.V. unfractionated heparin therapy for venous thromboembolism is 71 to 109 seconds. Blood BLOOD SPECIMEN / Unknown Lab Venipuncture / Unknown 11/15/2022 2:12 AM CDT 11/15/2022 3:08 AM CDT Good Antunez MD LAB - COAGULATION OR DERABLES [facility] [address] [place] [address], [facility] [phone] * PT-INR [facility] (11/15/2022 2:12 AM CDT) PT 14.3 12.1 - 14.8 Seconds 11/15/2022 3:34 AM CDT [facility] INR 1.1 See Comment 11/15/2022 3:34 AM CDT [facility] Comment:The suggested therap eutic range for standard coumadin (warfarin) therapy is an INR of 2.0-3.0. For high-risk patients (Mechanical Mitral Valve Prosthesis, etc.), the suggested prophylactic therapeutic range is an INR of 2.5-3.5. Blood BLOOD SPECIMEN / Unknown Lab Venipuncture / Unknown 11/15/2022 2:12 AM CDT 11/15/2022 3:08 AM CDT Emir Vail MD LAB - COAGULATION OR DERABLES [facility] [address] [place] [address], [facility] [phone] * US ABDOMEN LTD W COMP DOPPLER (11/14/2022 9:24 AM CDT) Anatomical Region Laterality Modality Abdomen Ultrasound 11/14/2022 9:18 AM CDT Impressions 11/14/2022 9:54 AM CDT IMPRESSION: 1.No discrete hepatic lesion or intrahepatic biliary ductal dilatation. 2.Patent hepatic vasculature. Borderline low velocity the main portal vein measuring 18 cm/s. 3.Status post cholecystectomy. > Dictated by Miranda Bowen MD (resident services coordinator). > Dictated by Miranda Bowen (Human Resources Compensation Analyst) 11/14/2022 9:18 AM HEATHER Ornelas MD have personally reviewed and interpreted [...] cholecystectomy. > Dictated by Miranda Bowen MD (resident services coordinator). > Dictated by Miranda Bowen (Human Resources Compensation Analyst) 11/14/2022 9:18 AM IHEATHER MD have personally reviewed and interpreted this examination/study. > Interpreting Provider: HEATHER FREGOSO MD on 11/14/2022 9:54 AM Good Antunez MD ORDERABLES * (ABNORMAL) HEPATIC FUNCTION PANEL (11/14/2022 2:39 AM CDT) Protein Total 6.5 6.0 - 8.3 g/dL 023 3:57 AM CDT [facility] Albumin 2.4(L) 3.4 - 5.0 g/dL 11/14/2022 3:57 AM CDT [facility] Bilirubin Total 0.3 0.2 - 1.2 mg/dL 07/2022 3:57 AM CDT [facility] Bilirubin Conjugated 0.1 0.1 - 0.5 mg/dL 11/14/2022 3:57 AM [facility] Bilirubin Unconjugated 0.2 Unconjugated Bilirubin is a calculated value: Reference ranges have not been established. mg/dL 11/14/2022 3:57 AM [facility] Alkaline Phosphatase 78 40 - 150 U/L 11/14/2022 3:57 AM [facility] ALT 278(H) 5 - 55 U/L 11/14/2022 3:57 AM [facility] AST 158(H) 5 - 34 U/L 11/14/2022 3:57 AM [facility] Albumin/Globulin Ratio 0.6(L) 1.1 - 2.3 11/14/2022 3:57 AM T [facility] Blood BLOOD SPECIMEN / Unknown Lab Venipuncture / Unknown 11/14/2022 2:39 AM CDT 11/14/2022 3:16 AM CDT Good Antunez MD LAB - CHEMISTRY [facility] Performing Organization Address City/[facility]/ZIP Co de Phone Number [address] [address], [facility] [phone] * PHOSPHORUS BLOOD (11/14/2022 2:39 AM CDT) Phosphorus 3.5 2.9 - 5.1 mg/dL 11/14/2022 3:54 AM T [facility] Blood BLOOD SPECIMEN / Unknown Lab Venipuncture / Unknown 11/14/2022 2:39 AM CDT 11/14/2022 3:16 AM CDT Good Antunez MD LAB - CHEMISTRY [place] [facility] [address] [address], [facility] [phone] * MAGNESIUM BLOOD (11/14/2022 2:39 AM CDT) Magnesium 2.0 1.6 - 2.6 mg/dL 11/14/2022 3:54 AM T [facility] Blood BLOOD SPECIMEN / Unknown Lab Venipuncture / Unknown 11/14/2022 2:39 AM CDT 11/14/2022 3:16 AM CDT Good Antunez MD LAB - CHEMISTRY [facility] [facility] Organization Address City/State/ZIP Co de Phone Number [facility] [address] [place] [address], [facility] [phone] * (ABNORMAL) BASIC METABOLIC PANEL (CALCIUM TOTAL) (11/14/2022 2:39 AM CDT) BUN 11 7 - 26 mg/dL 11/14/2022 3:54 AM [facility] Creatinine 0.51(L) 0.56 - 0.96 mg/dL 11/14/2022 3:54 AM [facility] Sodium 140 136 - 145 mmol/L 11/14/2022 3:54 AM [facility] Potassium 3.9 3.5 - 4.5 mmol/L 11/14/2022 3:54 AM [facility] Chloride 104 98 - 107 mmol/L 11/14/2022 3:54 AM [facility] CO2 25 22 - 29 mmol/L 11/14/2022 3:54 AM [facility] Glucose 109 70 - 115 mg/dL 11/14/2022 3:54 AM [facility] Calcium 8.6 8.4 - 10.2 mg/dL 11/14/2022 3:54 AM [facility] Anion Gap 15 8 - 18 11/14/2022 3:54 AM [facility] BUN/Creatinine Ratio 22 7 - 23 11/14/2022 3:54 AM [facility] Osmolality Calculated 290 270 - 300 mOsm/kg 11/14/2022 3:54 AM [facility] eGFR by CKD-EPI >90 >=90 mL/min/1.7 3 m2 11/14/2022 3:54 AM [facility] Blood BLOOD SPECIMEN / Unknown Lab Venipuncture / Unknown 11/14/2022 2:39 AM CDT 11/14/2022 3:16 AM CDT Good Antunez MD LAB - CHEMISTRY [facility] BLACKMAN [facility] Organization Address City/State/ZIP Co de Phone Number [facility] [address] [place] [id number], [facility] [phone] * (ABNORMAL) CBC W AUTO DIFFERENTIAL (11/14/2022 2:39 AM CDT) WBC 4.7 3.5 - 10.5 10? 3 /uL 11/14/2022 3:43 AM [facility] RBC 3.47(L) 3.80 - 5.20 10? 6 /uL 11/14/2022 3:43 AM [facility] Hemoglobin 9.9(L) 12.0 - 15.6 g/dL 11/14/2022 3:43 AM [facility] Hematocrit 32.8(L) 35.0 - 45.0 % 11/14/2022 3:43 AM [facility] MCV 94.5 80.7 - 98.3 fL 11/14/2022 3:43 AM [facility] MCH 28.5 26.7 - 34.0 pg 11/14/2022 3:43 AM [facility] MCHC 30.2(L) 30.8 - 35.9 g/dL 11/14/2022 3:43 AM [facility] RDW-SD 51.5(H) 36.0 - 50.0 fL 11/14/2022 3:43 AM [facility] RDW-CV 15.0(H) 11.2 - 14.8 % 11/14/2022 3:43 AM [facility] Platelet Count 364 150 - 400 10? 3 /uL 11/14/2022 3:43 AM [facility] MPV 11.2 9.4 - 12.9 fL 11/14/2022 3:43 AM [facility] nRBC Absolute 0.00 0 10? 3 /uL 11/14/2022 3:43 AM [facility] nRBC Auto 0.0 0 /100 WBC 11/14/2022 3:43 AM [facility] Neutrophils % 32.3(L) 35.0 - 70.0 % 11/14/2022 3:43 AM T [facility] Lymphocytes % 41.5 20.0 - 43.0 % 11/14/2022 3:43 AM [facility] Monocytes % 10.5 5.0 - 13.0 % 11/14/2022 3:43 AM [facility] Eosinophils % 13.8(H) 0.0 - 6.0 % 11/14/2022 3:43 AM T [facility] Basophil % 0.6 0.0 - 2.0 % 11/14/2022 3:43 AM [facility] Neutrophils Absolute 1.50(L) 1.60 - 7.00 10? 3 /uL 11/14/2022 3:43 AM T [facility] Lymphocyte Absolute 1.93 1.10 - 3.90 10? 3 /uL 11/14/2022 3:43 AM T [facility] Monocytes Absolute 0.49 0.26 - 1.07 10? 3 /uL 11/14/2022 3:43 AM T [facility] Eosinophils Absolute 0.64(H) 0.00 - 0.47 10? 3 /uL 11/14/2022 3:43 AM T [facility] Basophils Absolute 0.03 0.00 - 0.08 10? 3 /uL 11/14/2022 3:43 AM [facility] Immature Granulocytes % 1.3(H) 0.0 - 1.0 % 11/14/2022 3:43 AM T [facility] Immature Granulocytes Absolute 0.06 11/14/2022 3:43 AM [facility] Blood BLOOD SPECIMEN / Unknown Lab Venipuncture / Unknown 11/14/2022 2:39 AM CDT 11/14/2022 3:19 AM CDT Good Antunez MD LAB - HEMATOLOGY ORD ERABLES [facility] [address] [place] [address], [facility] [phone] * (ABNORMAL) PTT [facility] (11/14/2022 2:39 AM CDT) APTT 45.9(H) 23.0 - 38.4 Seconds 11/14/2022 3:39 AM CDT [facility] Comment:Suggested therapeuti c range for full dose I.V. unfractionated heparin therapy for venous thromboembolism is 71 to 109 seconds. Blood BLOOD SPECIMEN / Unknown Lab Venipuncture / Unknown 11/14/2022 2:39 AM CDT 11/14/2022 3:12 AM CDT Good Antunez MD LAB - COAGULATION OR DERABLES [facility] [address] [place] [address], [facility] [phone] * (ABNORMAL) PT-INR [facility] (11/14/2022 2:39 AM CDT) [facility] PT 15.9(H) 12.1 - 14.8 Seconds 11/14/2022 3:39 AM CDT [facility] INR 1.3 See Comment 11/14/2022 3:39 AM CDT [facility] Comment:The suggested therap eutic range for standard coumadin (warfarin) therapy is an INR of 2.0-3.0. For high-risk patients (Mechanical Mitral Valve Prosthesis, etc.), the suggested prophylactic therapeutic range is an INR of 2.5-3.5. Blood BLOOD SPECIMEN / Unknown Lab Venipuncture / Unknown 11/14/2022 2:39 AM CDT 11/14/2022 3:12 AM CDT Emir Vail MD LAB - COAGULATION OR DERABLES [facility] [address] [place] [address], [facility] [phone] * PREPARE FFP UNIT(S), 1 Units (11/14/2022 1:17 AM CDT) Pathologist [facility] Unit Description N/A [facility] BLOOD BANK LAB Blood Bank BLOOD SPECIMEN / Unknown 11/10/2022 11:51 PM CDT Good Antunez MD LAB - BLOOD BANK ORD ERABLES [facility] BLOOD BANK LAB [address] [place] [address], [facility] [phone] * PREPARE (CROSSMATCH) RBC UNIT(S), 2 Units (11/14/2022 1:17 AM CDT) Pathologist [facility] Unit Description AS1 LR PRBC [facility] BLOOD BANK LAB Unit ABO B [facility] BLOOD BANK LAB Unit Rh POS [facility] BLOOD BANK LAB Product Number R02 [facility] B LOOD BANK LAB Unit Donor # [id number] [facility] BLOOD [facility]ANK LAB Unit Status released [facility] BLOO D BANK LAB Product Code [id number] [facility] BLO OD BANK LAB Blood Type Barcode 7300 [facility] BLOOD BANK LAB Expiration Date S BLOOD BANK LAB Unit Description AS1 LR PRBC [facility] BLOOD BANK LAB Unit ABO B [facility] BLOOD BANK LAB Unit Rh POS [facility] BLOOD BANK LAB Product Number R02 [facility] B LOOD BANK LAB Unit Donor # [id number] [facility] BLOOD BANK LAB Unit Status released [facility] BLOO D BANK LAB Product Code [id number] [facility] BLO OD BANK LAB Blood Type Barcode 7300 [facility] BLOOD BANK LAB Expiration Date S BLOOD BANK LAB Blood Bank BLOOD SPECIMEN / Unknown 11/10/2022 11:51 PM CDT Good Antunez MD LAB - BLOOD BANK ORD ERABLES [facility] BLOOD BANK LAB [address] [place] [address], [facility] [phone] * CYTOMEGALOVIRUS (CMV) QUANTITATIVE PLASMA (11/13/2022 3:34 PM CDT) Pathologist [facility] CMV Quant by PCR, Interp Not detected Not detected 11/14/2022 12:[address] [facility] Blood BLOOD SPECIMEN / Unknown Lab Venipuncture / Unknown 11/13/2022 3:34 PM CDT 11/13/2022 3:53 PM CDT Narrative [facility] - 11/14/2022 12:40 PM CDT [...] Antunez MD LAB - CHEMISTRY BIBIANA BLACKMAN [facility] Organization Address City/State/ZIP Co de Phone Number [facility] [address] [place] [address], [facility] [phone] * MARY JO-HERBERT VIRUS QUANT BLOOD STL (11/13/2022 3:34 PM CDT) EBV Quant by PCR, Interp Not detected Not detected 11/14/2022 1:40 PM CDT [facility] Specimen Type Plasma 11/14/2022 1:40 PM CDT [facility] Blood BLOOD SPECIMEN / Unknown Lab Venipuncture / Unknown 11/13/2022 3:34 PM CDT 11/13/2022 3:53 PM CDT Narrative [facility] - 11/14/2022 1:40 PM CDT [...] and its performance characteristics determined by [facility]. ??It has not been cleared or approved [...] - CHEMISTRY BIBIANA BLACKMAN Performing Organization Address City/[facility]/ZIP Co de Phone Number [facility] [address] [place] [address], [facility] [phone] * CK BLOOD (11/13/2022 3:34 PM CDT) Pathologist [facility] CK Total 57 30 - 200 U/L 11/13/2022 4:17 PM CDT [facility] Blood BLOOD SPECIMEN / Unknown Lab Venipuncture / Unknown 11/13/2022 3:34 PM CDT 11/13/2022 3:52 PM CDT Good Antunez MD LAB - CHEMISTRY BIBIANA BLACKMAN [facility] [address] [place] [address], [place] [phone] * (ABNORMAL) GLUCOSE - POINT OF CARE (11/13/2022 4:14 AM CDT) Glucose WB/POC 120(H) 70 - 115 mg/dL 11/13/2022 4:27 AM CDT [facility] Specimen Type Cap Fingerstick 2022 4:27 AM CDT [facility] Blood BLOOD SPECIMEN / Unknown 11/13/2022 4:14 AM CDT 11/13/2022 4:27 AM CDT Good Antunez MD LAB - POINT OF CARE ORDERABLES Performing Organization Address City/[facility]/ZIP Co de Phone Number [address] [address], [facility] [phone] * T4 FREE (11/13/2022 2:10 AM CDT) Pathologist [facility] T4 Free 1.1 0.7 - 1.5 ng/dL 11/13/2022 4:05 AM CDT [facility] Blood BLOOD SPECIMEN / Unknown Lab Venipuncture / Unknown 11/13/2022 2:10 AM CDT 11/13/2022 2:44 AM CDT Good Antunez MD LAB - CHEMISTRY ORDE RABLES Performing Organization Address City/[facility]/ZIP Co de Phone Number [address] [address], [facility] [phone] * (ABNORMAL) HEPATIC FUNCTION PANEL (11/13/2022 2:10 AM CDT) [facility] Protein Total 6.5 6.0 - 8.3 g/dL 023 3:16 AM [facility] Albumin 2.4(L) 3.4 - 5.0 g/dL 11/13/2022 3:16 AM T [facility] Bilirubin Total 0.3 0.2 - 1.2 mg/dL 06/2022 3:16 AM T [facility] Bilirubin Conjugated 0.1 0.1 - 0.5 mg/dL 11/13/2022 3:16 AM [facility] Bilirubin Unconjugated 0.2 Unconjugated Bilirubin is a calculated value: Reference ranges have not been established. mg/dL 11/13/2022 3:16 AM [facility] Alkaline Phosphatase 77 40 - 150 U/L 11/13/2022 3:16 AM [facility] ALT 286(H) 5 - 55 U/L 11/13/2022 3:16 AM CDT [facility] AST 195(H) 5 - 34 U/L 11/13/2022 3:16 AM CDT [facility] Albumin/Globulin Ratio 0.6(L) 1.1 - 2.3 11/13/2022 3:16 AM CDT [facility] Blood BLOOD SPECIMEN / Unknown Lab Venipuncture / Unknown 11/13/2022 2:10 AM CDT 11/13/2022 2:44 AM CDT Good Antunez MD LAB - CHEMISTRY BIB[place]NA BLACKMAN [address] [address], [place] [phone] * PHOSPHORUS BLOOD (11/13/2022 2:10 AM CDT) Phosphorus 3.9 2.9 - 5.1 mg/dL 11/13/2022 3:16 AM CDT [facility] Blood BLOOD SPECIMEN / Unknown Lab Venipuncture / Unknown 11/13/2022 2:10 AM CDT 11/13/2022 2:44 AM CDT Good Antunez MD LAB - CHEMISTRY BIBIANA BLACKMAN Performing Organization Address City/[facility]/ZIP Co de Phone Number [address] [address], [place] [phone] * MAGNESIUM BLOOD (11/13/2022 2:10 AM CDT) Magnesium 2.2 1.6 - 2.6 mg/dL 11/13/2022 3:14 AM CDT [facility] Blood BLOOD SPECIMEN / Unknown Lab Venipuncture / Unknown 11/13/2022 2:10 AM CDT 11/13/2022 2:44 AM CDT Good Antunez MD LAB - CHEMISTRY BIBIANA BLACKMAN [address] [address], [facility] [phone] * (ABNORMAL) BASIC METABOLIC PANEL (CALCIUM TOTAL) (11/13/2022 2:10 AM CDT) BUN 11 7 - 26 mg/dL 11/13/2022 3:14 AM [facility] Creatinine 0.54(L) 0.56 - 0.96 mg/dL 11/13/2022 3:14 AM [facility] Sodium 138 136 - 145 mmol/L 11/13/2022 3:14 AM [facility] Potassium 3.9 3.5 - 4.5 mmol/L 11/13/2022 3:14 AM [facility] Chloride 107 98 - 107 mmol/L 11/13/2022 3:14 AM [facility] CO2 23 22 - 29 mmol/L 11/13/2022 3:14 AM [facility] Glucose 105 70 - 115 mg/dL 11/13/2022 3:14 AM [facility] Calcium 8.1(L) 8.4 - 10.2 mg/dL 11/13/2022 3:14 AM [facility] Anion Gap 12 8 - 18 11/13/2022 3:14 AM [facility] BUN/Creatinine Ratio 20 7 - 23 11/13/2022 3:14 AM [facility] Osmolality Calculated 286 270 - 300 mOsm/kg 11/13/2022 3:14 AM [facility] eGFR by CKD-EPI >90 >=90 mL/min/1.7 3 m2 11/13/2022 3:14 AM [facility] Blood BLOOD SPECIMEN / Unknown Lab Venipuncture / Unknown 11/13/2022 2:10 AM CDT 11/13/2022 2:44 AM CDT Good Antunez MD LAB - CHEMISTRY BIBIANA BLACKMAN [facility] Organization Address City/State/ZIP Co de Phone Number [facility] [address] [place] [address], [facility] [phone] * (ABNORMAL) CBC W AUTO DIFFERENTIAL (11/13/2022 2:10 AM CDT) WBC 2.7(L) 3.5 - 10.5 10? 3 /uL 11/13/2022 3:11 AM [facility] RBC 3.36(L) 3.80 - 5.20 10? 6 /uL 11/13/2022 3:11 AM [facility] Hemoglobin 9.8(L) 12.0 - 15.6 g/dL 11/13/2022 3:11 AM [facility] Hematocrit 30.8(L) 35.0 - 45.0 % 11/13/2022 3:11 AM [facility] MCV 91.7 80.7 - 98.3 fL 11/13/2022 3:11 AM [facility] MCH 29.2 26.7 - 34.0 pg 11/13/2022 3:11 AM [facility] MCHC 31.8 30.8 - 35.9 g/dL 11/13/2022 3:11 AM [facility] RDW-SD 49.2 36.0 - 50.0 fL 11/13/2022 3:11 AM [facility] RDW-CV 14.9(H) 11.2 - 14.8 % 11/13/2022 3:11 AM [facility] Platelet Count 334 150 - 400 10? 3 /uL 11/13/2022 3:11 AM [facility] MPV 11.0 9.4 - 12.9 fL 11/13/2022 3:11 AM [facility] nRBC Absolute 0.00 0 10? 3 /uL 11/13/2022 3:11 AM [facility] nRBC Auto 0.0 0 /100 WBC 11/13/2022 3:11 AM [facility] Neutrophils % 28.1(L) 35.0 - 70.0 % 11/13/2022 3:11 AM [facility] Lymphocytes % 45.3(H) 20.0 - 43.0 % 11/13/2022 3:11 AM [facility] Monocytes % 14.6(H) 5.0 - 13.0 % 11/13/2022 3:11 AM [facility] Eosinophils % 9.4(H) 0.0 - 6.0 % 11/13/2022 3:11 AM T [facility] Basophil % 0.4 0.0 - 2.0 % 11/13/2022 3:11 AM [facility] Neutrophils Absolute 0.75(L) 1.60 - 7.00 10? 3 /uL 11/13/2022 3:11 AM T [facility] Lymphocyte Absolute 1.21 1.10 - 3.90 10? 3 /uL 11/13/2022 3:11 AM [facility] Monocytes Absolute 0.39 0.26 - 1.07 10? 3 /uL 11/13/2022 3:11 AM [facility] Eosinophils Absolute 0.25 0.00 - 0.47 10? 3 /uL 11/13/2022 3:11 AM [facility] Basophils Absolute 0.01 0.00 - 0.08 10? 3 /uL 11/13/2022 3:11 AM [facility] Immature Granulocytes % 2.2(H) 0.0 - 1.0 % 11/13/2022 3:11 AM [facility] Immature Granulocytes Absolute 0.06 11/13/2022 3:11 AM [facility] Blood BLOOD SPECIMEN / Unknown Lab Venipuncture / Unknown 11/13/2022 2:10 AM CDT 11/13/2022 2:44 AM CDT Good Antunez MD LAB - HEMATOLOGY ORD ERABLES Performing Organization Address City/State/[facility] Co de Phone Number [facility] [address] [place] [address], [facility] [phone] * (ABNORMAL) PTT [facility] (11/13/2022 2:10 AM CDT) APTT 47.9(H) 23.0 - 38.4 Seconds 11/13/2022 2:56 AM [facility] Comment:Suggested therapeuti c range for full dose I.V. unfractionated heparin therapy for venous thromboembolism is 71 to 109 seconds. Blood BLOOD SPECIMEN / Unknown Lab Venipuncture / Unknown 11/13/2022 2:10 AM CDT 11/13/2022 2:39 AM CDT Good Antunez MD LAB - COAGULATION OR DERABLES Performing Organization Address [facility] Co de Phone Number [address] [address], [facility] [phone] * (ABNORMAL) PT-INR [facility] (11/13/2022 2:10 AM CDT) PT 17.7(H) 12.1 - 14.8 Seconds 11/13/2022 2:56 AM CDT [facility] INR 1.5 See Comment 11/13/2022 2:56 AM CDT [facility] Comment:The suggested therap eutic range for standard coumadin (warfarin) therapy is an INR of 2.0-3.0. For high-risk patients (Mechanical Mitral Valve Prosthesis, etc.), the suggested prophylactic therapeutic range is an INR of 2.5-3.5. Blood BLOOD SPECIMEN / Unknown Lab Venipuncture / Unknown 11/13/2022 2:10 AM CDT 11/13/2022 2:39 AM CDT Emir Vail MD LAB - COAGULATION OR DERABLES Performing Organization Address [facility] Co de Phone Number [address] [address], [facility] [phone] * (ABNORMAL) TSH REFLEX FREE T4 (11/13/2022 2:10 AM CDT) TSH 5.706(H) 0.350 - 4.940 uIU/mL 11/13/2022 3:33 AM CDT [facility] Blood BLOOD SPECIMEN / Unknown Lab Venipuncture / Unknown 11/13/2022 2:10 AM CDT 11/13/2022 2:44 AM CDT Good Antunez MD LAB - CHEMISTRY BIBIANA BLACKMAN [facility] [address] [place] [address], [place] [phone] * GLUCOSE - POINT OF CARE (11/12/2022 11:52 PM CDT) Glucose WB/POC 111 70 - 115 mg/dL 11/13/2022 12:06 AM CDT [facility] Specimen Type Cap Fingerstick 2022 12:06 AM CDT [facility] Blood BLOOD SPECIMEN / Unknown 11/12/2022 11:52 PM CDT 11/13/2022 12:06 AM CDT Good Antunez MD LAB - POINT OF CARE ORDERABLES [place] [id number] [place] [address], [place] [phone] * XR CHEST 1VW PORTABLE (11/12/2022 8:44 PM CDT) Anatomical Region Laterality Modality Chest Radiographic Irene ging 11/13/2022 10:4 6 AM CDT Narrative 11/13/2022 11:59 AM CDT PROCEDURE: ??XR CHEST 1VW PORTABLE, DATE/TIME OF EXAM: ??11/12/2022 8:45 PM, LOCATION ??[facility] INDICATION: R50.9: Fever, unspecified fever cause ADDITIONAL [...] abnormality. Report dictated by Agnes Olmos DO (resident services coordinator). I, Pepe Gonzalez MD have personally reviewed and interpreted this examination/study. > Interpreting Provider: Pepe Gonzalez MD on 11/13/2022 11:59 AM Procedure Note Pepe Gonzalez MD - 11/13/2022 PROCEDURE: XR CHEST 1VW PORTABLE, DATE/TIME OF EXAM: 11/12/2022 8:45 PM, LOCATION [facility] INDICATION: R50.9: Fever, unspecified fever cause ADDITIONAL [...] abnormality. Report dictated by Agnes Olmos DO (resident services coordinator). I, Pepe Gonzalez MD have personally reviewed and interpreted this examination/study. > Interpreting Provider: Pepe Gonzalez MD on 11/13/2022 11:59 AM Good Antunez MD DIAGNOSTIC IMAGING O RDERABLES * (ABNORMAL) GLUCOSE - POINT OF CARE (11/12/2022 7:40 PM CDT) Glucose WB/POC 117(H) 70 - 115 mg/dL 11/12/2022 7:43 PM CDT [facility] Specimen Type Cap Fingerstick 2022 7:43 PM CDT [facility] Blood BLOOD SPECIMEN / Unknown 11/12/2022 7:40 PM CDT 11/12/2022 7:43 PM CDT Good Antunez MD LAB - POINT OF CARE ORDERABLES Performing Organization Address [facility]/State/[facility] Co de Phone Number [facility] [address] [place] [address], [facility] [phone] * (ABNORMAL) PTT [facility] (11/12/2022 5:32 AM CDT) APTT 102.7(HH) 23.0 - 38.4 Seconds 11/12/2022 6:42 AM CDT [facility] Comment:Suggested therapeuti c range for full dose I.V. unfractionated heparin therapy for venous thromboembolism is 71 to 109 seconds. Blood BLOOD SPECIMEN / Unknown Lab Venipuncture / Unknown 11/12/2022 5:32 AM CDT 11/12/2022 6:08 AM CDT Good Antunez MD LAB - COAGULATION OR DERABLES Performing Organization Address [facility]/ZIP Co de Phone Number [address] [address], [facility] [phone] * (ABNORMAL) PHOSPHORUS BLOOD (11/12/2022 5:32 AM CDT) Phosphorus 2.5(L) 2.9 - 5.1 mg/dL 11/12/2022 6:45 AM CDT [facility] Blood BLOOD SPECIMEN / Unknown Lab Venipuncture / Unknown 11/12/2022 5:32 AM CDT 11/12/2022 6:16 AM CDT Good Antunez MD LAB - CHEMISTRY BIBIANA BLACKMAN Performing Organization Address [facility] Co de Phone Number [address] [address], [facility] [phone] * MAGNESIUM BLOOD (11/12/2022 5:32 AM CDT) Magnesium 1.7 1.6 - 2.6 mg/dL 11/12/2022 6:45 AM CDT [facility] Blood BLOOD SPECIMEN / Unknown Lab Venipuncture / Unknown 11/12/2022 5:32 AM CDT 11/12/2022 6:16 AM CDT Good Antunez MD LAB - CHEMISTRY BIBIANA BLACKMAN Performing Organization Address [facility]/ZIP Co de Phone Number [address] [address], [facility] [phone] * (ABNORMAL) BASIC METABOLIC PANEL (CALCIUM TOTAL) (11/12/2022 5:32 AM CDT) BUN 13 7 - 26 mg/dL 11/12/2022 6:45 AM CDT [facility] Creatinine 0.59 0.56 - 0.96 mg/dL 11/12/2022 6:45 AM [facility] Sodium 136 136 - 145 mmol/L 11/12/2022 6:45 AM [facility] Potassium 3.3(L) 3.5 - 4.5 mmol/L 11/12/2022 6:45 AM [facility] Chloride 105 98 - 107 mmol/L 11/12/2022 6:45 AM [facility] CO2 21(L) 22 - 29 mmol/L 11/12/2022 6:45 AM [facility] Glucose 120(H) 70 - 115 mg/dL 11/12/2022 6:45 AM [facility] Calcium 7.8(L) 8.4 - 10.2 mg/dL 11/12/2022 6:45 AM [facility] Anion Gap 13 8 - 18 11/12/2022 6:45 AM [facility] BUN/Creatinine Ratio 22 7 - 23 11/12/2022 6:45 AM [facility] Osmolality Calculated 283 270 - 300 mOsm/kg 11/12/2022 6:45 AM [facility] eGFR by CKD-EPI >90 >=90 mL/min/1.7 3 m2 11/12/2022 6:45 AM [facility] Blood BLOOD SPECIMEN / Unknown Lab Venipuncture / Unknown 11/12/2022 5:32 AM CDT 11/12/2022 6:16 AM T Good Antunez MD LAB - CHEMISTRY BIBIANA BLACKMAN [facility] Organization Address City/State/[facility] Co de Phone Number [facility] [address] [place] [phone] [phone] * (ABNORMAL) CBC W AUTO DIFFERENTIAL (11/12/2022 5:32 AM CDT) WBC 4.8 3.5 - 10.5 10? 3 /uL 11/12/2022 6:27 AM [facility] RBC 3.27(L) 3.80 - 5.20 10? 6 /uL 11/12/2022 6:27 AM [facility] Hemoglobin 9.4(L) 12.0 - 15.6 g/dL 11/12/2022 6:27 AM [facility] Hematocrit 30.2(L) 35.0 - 45.0 % 11/12/2022 6:27 AM [facility] MCV 92.4 80.7 - 98.3 fL 11/12/2022 6:27 AM [facility] MCH 28.7 26.7 - 34.0 pg 11/12/2022 6:27 AM [facility] MCHC 31.1 30.8 - 35.9 g/dL 11/12/2022 6:27 AM [facility] RDW-SD 48.6 36.0 - 50.0 fL 11/12/2022 6:27 AM [facility] RDW-CV 14.6 11.2 - 14.8 % 11/12/2022 6:27 AM [facility] Platelet Count 333 150 - 400 10? 3 /uL 11/12/2022 6:27 AM [facility] MPV 11.1 9.4 - 12.9 fL 11/12/2022 6:27 AM [facility] nRBC Absolute 0.00 0 10? 3 /uL 11/12/2022 6:27 AM [facility] nRBC Auto 0.0 0 /100 WBC 11/12/2022 6:27 AM [facility] Neutrophils % 70.4(H) 35.0 - 70.0 % 11/12/2022 6:27 AM [facility] Lymphocytes % 17.7(L) 20.0 - 43.0 % 11/12/2022 6:27 AM [facility] Monocytes % 4.6(L) 5.0 - 13.0 % 11/12/2022 6:27 AM [facility] Eosinophils % 6.1(H) 0.0 - 6.0 % 11/12/2022 6:27 AM [facility] Basophil % 0.2 0.0 - 2.0 % 11/12/2022 6:27 AM [facility] Neutrophils Absolute 3.37 1.60 - 7.00 10? 3 /uL 11/12/2022 6:27 AM [facility] Lymphocyte Absolute 0.85(L) 1.10 - 3.90 10? 3 /uL 11/12/2022 6:27 AM [facility] Monocytes Absolute 0.22(L) 0.26 - 1.07 10? 3 /uL 11/12/2022 6:27 AM [facility] Eosinophils Absolute 0.29 0.00 - 0.47 10? 3 /uL 11/12/2022 6:27 AM T [facility] Basophils Absolute 0.01 0.00 - 0.08 10? 3 /uL 11/12/2022 6:27 AM [facility] Immature Granulocytes % 1.0 0.0 - 1.0 % 11/12/2022 6:27 AM T [facility] Immature Granulocytes Absolute 0.05 11/12/2022 6:27 AM [facility] Blood BLOOD SPECIMEN / Unknown Lab Venipuncture / Unknown 11/12/2022 5:32 AM CDT 11/12/2022 6:15 AM CDT Good Antunez MD LAB - HEMATOLOGY ORD ERABLES [facility] [address] [place] [address], [facility] [phone] * (ABNORMAL) PT-INR [facility] (11/12/2022 5:32 AM CDT) PT 22.1(H) 12.1 - 14.8 Seconds 11/12/2022 6:42 AM T [facility] INR 2.0 See Comment 11/12/2022 6:42 AM [facility] Comment:The suggested therap eutic range for standard coumadin (warfarin) therapy is an INR of 2.0-3.0. For high-risk patients (Mechanical Mitral Valve Prosthesis, etc.), the suggested prophylactic therapeutic range is an INR of 2.5-3.5. Blood BLOOD SPECIMEN / Unknown Lab Venipuncture / Unknown 11/12/2022 5:32 AM CDT 11/12/2022 6:08 AM CDT Emir Vail MD LAB - COAGULATION OR DERABLES [facility] [address] [place] [address], [facility] [phone] * (ABNORMAL) HEPATIC FUNCTION PANEL (11/12/2022 5:32 AM CDT) Protein Total 6.5 6.0 - 8.3 g/dL 023 6:53 AM T [facility] Albumin 2.5(L) 3.4 - 5.0 g/dL 11/12/2022 6:53 AM T [facility] Bilirubin Total 0.3 0.2 - 1.2 mg/dL 05/2022 6:53 AM [facility] Bilirubin Conjugated 0.2 0.1 - 0.5 mg/dL 11/12/2022 6:53 AM [facility] Bilirubin Unconjugated 0.1 Unconjugated Bilirubin is a calculated value: Reference ranges have not been established. mg/dL 11/12/2022 6:53 AM [facility] Alkaline Phosphatase 75 40 - 150 U/L 11/12/2022 6:53 AM [facility] ALT 266(H) 5 - 55 U/L 11/12/2022 6:53 AM [facility] AST 220(H) 5 - 34 U/L 11/12/2022 6:53 AM [facility] Albumin/Globulin Ratio 0.6(L) 1.1 - 2.3 11/12/2022 6:53 AM [facility] Blood BLOOD SPECIMEN / Unknown Lab Venipuncture / Unknown 11/12/2022 5:32 AM CDT 11/12/2022 6:16 AM CDT Good Antunez MD LAB - CHEMISTRY BIBIANA BLACKMAN [facility] [address] [place] [address], [place] [phone] * CULTURE BLOOD (11/12/2022 5:32 AM CDT) Pathologist [facility] [place] Culture No growth day 5 ROSELIA 11/17/2022 10:01 AM CDT [facility] Blood PERIPHERAL BLOOD / Unknown Lab Venipuncture / Unknown 11/12/2022 5:32 AM CDT 11/12/2022 6:09 AM CDT Good Antunez MD LAB - MICROBIOLOGY O RDERABLES Performing Organization Address City/[facility]/ZIP Co de Phone Number [facility] [address] [place] [address], [facility] [phone] * (ABNORMAL) GLUCOSE - POINT OF CARE (11/12/2022 3:44 AM CDT) Pathologist [facility] [place] Glucose WB/POC 128(H) 70 - 115 mg/dL 11/12/2022 3:49 AM CDT [facility] Specimen Type Cap Fingerstick 2022 3:49 AM CDT [facility] Blood BLOOD SPECIMEN / Unknown 11/12/2022 3:44 AM CDT 11/12/2022 3:49 AM CDT Good Antunez MD LAB - POINT OF CARE ORDERABLES Performing Organization Address [facility] de Phone Number [address] [address], [facility] [phone] * (ABNORMAL) PTT [facility] (11/11/2022 11:51 PM CDT) Pathologist [facility] [place] APTT 78.8(H) 23.0 - 38.4 Seconds 11/12/2022 12:49 AM CDT [facility] Comment:Suggested therapeuti c range for full dose I.V. unfractionated heparin therapy for venous thromboembolism is 71 to 109 seconds. Blood BLOOD SPECIMEN / Unknown Venipuncture / Unknown 11/11/2022 11:51 PM CDT 11/11/2022 11:59 PM CDT Good Antunez MD LAB - COAGULATION OR DERABLES Performing Organization Address City/[facility]/ZIP Co de Phone Number [address] [place] [address], [place] [phone] * (ABNORMAL) GLUCOSE - POINT OF CARE (11/11/2022 11:33 PM CDT) Glucose WB/POC 129(H) 70 - 115 mg/dL 11/11/2022 11:38 PM CDT [facility] Specimen Type Cap Fingerstick 2022 11:38 PM CDT [facility] Blood BLOOD SPECIMEN / Unknown 11/11/2022 11:33 PM CDT 11/11/2022 11:38 PM CDT Good Antunez MD LAB - POINT OF CARE ORDERABLES [facility] [address] [place] [address], [place] [phone] * GLUCOSE - POINT OF CARE (11/11/2022 9:25 PM CDT) Glucose WB/POC 95 70 - 115 mg/dL 11/11/2022 9:30 PM CDT [facility] Specimen Type Cap Fingerstick 2022 9:30 PM CDT [facility] Blood BLOOD SPECIMEN / Unknown 11/11/2022 9:25 PM CDT 11/11/2022 9:30 PM CDT Good Antunez MD LAB - POINT OF CARE ORDERABLES [facility] [address] [place] [address], [place] [phone] * (ABNORMAL) PTT [facility] (11/11/2022 5:03 PM CDT) APTT 140.8(HH) 23.0 - 38.4 Seconds 11/11/2022 5:47 PM CDT [facility] Comment:Suggested therapeuti c range for full dose I.V. unfractionated heparin therapy for venous thromboembolism is 71 to 109 seconds. Blood BLOOD SPECIMEN / Unknown Venipuncture / Unknown 11/11/2022 5:03 PM CDT 11/11/2022 5:08 PM CDT Good Antunez MD LAB - COAGULATION OR DERABLES Performing Organization Address City/[facility]/ZIP Co de Phone Number [address] [address], [place] [phone] * PHOSPHORUS BLOOD (11/11/2022 5:03 PM CDT) Phosphorus 3.3 2.9 - 5.1 mg/dL 11/11/2022 5:34 PM CDT [facility] Blood BLOOD SPECIMEN / Unknown Venipuncture / Unknown 11/11/2022 5:03 PM CDT 11/11/2022 5:22 PM CDT Good Antunez MD LAB - CHEMISTRY BIBIANA BLACKMAN Performing Organization Address [facility] Co de Phone Number [address] [address], [place] [phone] * MAGNESIUM BLOOD (11/11/2022 5:03 PM CDT) Magnesium 2.0 1.6 - 2.6 mg/dL 11/11/2022 5:34 PM CDT [facility] Blood BLOOD SPECIMEN / Unknown Venipuncture / Unknown 11/11/2022 5:03 PM CDT 11/11/2022 5:22 PM CDT Good Antunez MD LAB - CHEMISTRY BIBIANA BLACKMAN Performing Organization Address City/[facility]/ZIP Co de Phone Number [address] [address], [place] [phone] * (ABNORMAL) BASIC METABOLIC PANEL (CALCIUM TOTAL) (11/11/2022 5:03 PM CDT) BUN 11 7 - 26 mg/dL 11/11/2022 5:34 PM CDT [facility] Creatinine 0.56 0.56 - 0.96 mg/dL 11/11/2022 5:34 PM [facility] Sodium 140 136 - 145 mmol/L 11/11/2022 5:34 PM [facility] Potassium 3.8 3.5 - 4.5 mmol/L 11/11/2022 5:34 PM [facility] Chloride 108(H) 98 - 107 mmol/L 11/11/2022 5:34 PM [facility] CO2 22 22 - 29 mmol/L 11/11/2022 5:34 PM [facility] Glucose 105 70 - 115 mg/dL 11/11/2022 5:34 PM [facility] Calcium 8.4 8.4 - 10.2 mg/dL 11/11/2022 5:34 PM [facility] Anion Gap 14 8 - 18 11/11/2022 5:34 PM [facility] BUN/Creatinine Ratio 20 7 - 23 11/11/2022 5:34 PM [facility] Osmolality Calculated 290 270 - 300 mOsm/kg 11/11/2022 5:34 PM [facility] eGFR by CKD-EPI >90 >=90 mL/min/1.7 3 m2 11/11/2022 5:34 PM [facility] Blood BLOOD SPECIMEN / Unknown Venipuncture / Unknown 11/11/2022 5:03 PM CDT 11/11/2022 5:22 PM CDT Good Antunez MD LAB - CHEMISTRY BIBIANA BLACKMAN [facility] Organization Address [facility]/State/ZIP Co de Phone Number [facility] [address] [place] [address] [phone] * (ABNORMAL) CBC W AUTO DIFFERENTIAL (11/11/2022 5:03 PM CDT) WBC 5.0 3.5 - 10.5 10? 3 /uL 11/11/2022 5:17 PM [facility] RBC 3.41(L) 3.80 - 5.20 10? 6 /uL 11/11/2022 5:17 PM [facility] Hemoglobin 9.9(L) 12.0 - 15.6 g/dL 11/11/2022 5:17 PM [facility] Hematocrit 31.9(L) 35.0 - 45.0 % 11/11/2022 5:17 PM [facility] MCV 93.5 80.7 - 98.3 fL 11/11/2022 5:17 PM [facility] MCH 29.0 26.7 - 34.0 pg 11/11/2022 5:17 PM [facility] MCHC 31.0 30.8 - 35.9 g/dL 11/11/2022 5:17 PM [facility] RDW-SD 49.3 36.0 - 50.0 fL 11/11/2022 5:17 PM [facility] RDW-CV 14.6 11.2 - 14.8 % 11/11/2022 5:17 PM [facility] Platelet Count 332 150 - 400 10? 3 /uL 11/11/2022 5:17 PM [facility] MPV 10.8 9.4 - 12.9 fL 11/11/2022 5:17 PM [facility] nRBC Absolute 0.00 0 10? 3 /uL 11/11/2022 5:17 PM [facility] nRBC Auto 0.0 0 /100 WBC 11/11/2022 5:17 PM [facility] Neutrophils % 64.9 35.0 - 70.0 % 11/11/2022 5:17 PM [facility] Lymphocytes % 23.3 20.0 - 43.0 % 11/11/2022 5:17 PM [facility] Monocytes % 8.2 5.0 - 13.0 % 11/11/2022 5:17 PM [facility] Eosinophils % 2.0 0.0 - 6.0 % 11/11/2022 5:17 PM [facility] Basophil % 0.4 0.0 - 2.0 % 11/11/2022 5:17 PM [facility] Neutrophils Absolute 3.23 1.60 - 7.00 10? 3 /uL 11/11/2022 5:17 PM [facility] Lymphocyte Absolute 1.16 1.10 - 3.90 10? 3 /uL 11/11/2022 5:17 PM CDT [facility] Monocytes Absolute 0.41 0.26 - 1.07 10? 3 /uL 11/11/2022 5:17 PM CDT [facility] Eosinophils Absolute 0.10 0.00 - 0.47 10? 3 /uL 11/11/2022 5:17 PM CDT [facility] Basophils Absolute 0.02 0.00 - 0.08 10? 3 /uL 11/11/2022 5:17 PM CDT [facility] Immature Granulocytes % 1.2(H) 0.0 - 1.0 % 11/11/2022 5:17 PM CDT [facility] Immature Granulocytes Absolute 0.06 11/11/2022 5:17 PM CDT [facility] Blood BLOOD SPECIMEN / Unknown Venipuncture / Unknown 11/11/2022 5:03 PM CDT 11/11/2022 5:11 PM CDT Good Antunez MD LAB - HEMATOLOGY ORD ERABLES [facility] [address] [place] [address], [place] [phone] * LACTIC ACID BLOOD REFLEX TO REPEAT (11/11/2022 5:03 PM CDT) Pathologist [facility] [place] Lactic Acid-Stat 1.0 <=2.0 mmol/L 11/11/2022 5:35 PM CDT [facility] Blood BLOOD SPECIMEN / Unknown Venipuncture / Unknown 11/11/2022 5:03 PM CDT 11/11/2022 5:09 PM CDT Good Antunez MD LAB - CHEMISTRY ORDDanyelle BLACKMAN [facility] [address] [place] [address], [place] [phone] * (ABNORMAL) PTT [facility] (11/11/2022 9:28 AM CDT) APTT 129.8(HH) 23.0 - 38.4 Seconds 11/11/2022 10:30 AM CDT [facility] Comment:Suggested therapeuti c range for full dose I.V. unfractionated heparin therapy for venous thromboembolism is 71 to 109 seconds. Blood BLOOD SPECIMEN / Unknown Venipuncture / Unknown 11/11/2022 9:28 AM CDT 11/11/2022 9:28 AM CDT Good Antunez MD LAB - COAGULATION OR DERABLES Performing Organization Address City/[facility]/ZIP Co de Phone Number [facility] [address] [place] [address], [facility] [phone] * (ABNORMAL) PT-INR [facility] (11/11/2022 9:28 AM CDT) PT 16.2(H) 12.1 - 14.8 Seconds 11/11/2022 10:30 AM CDT [facility] INR 1.3 See Comment 11/11/2022 10:30 AM T [facility] Comment:The suggested therap eutic range for standard coumadin (warfarin) therapy is an INR of 2.0-3.0. For high-risk patients (Mechanical Mitral Valve Prosthesis, etc.), the suggested prophylactic therapeutic range is an INR of 2.5-3.5. Blood BLOOD SPECIMEN / Unknown Venipuncture / Unknown 11/11/2022 9:28 AM CDT 11/11/2022 9:28 AM CDT Emir Vail MD LAB - COAGULATION OR DERABLES [facility] [address] [place] [address], [facility] [phone] * (ABNORMAL) GLUCOSE - POINT OF CARE (11/11/2022 4:48 AM CDT) Glucose WB/POC 148(H) 70 - 115 mg/dL 11/11/2022 8:15 AM CDT [facility] Specimen Type Cap Fingerstick 2022 8:15 AM CDT [facility] Blood BLOOD SPECIMEN / Unknown 11/11/2022 4:48 AM CDT 11/11/2022 8:15 AM CDT Good Antunez MD LAB - POINT OF CARE ORDERABLES Performing Organization Address City/[facility]/ZIP Co de Phone Number [address] [address], [place] [phone] * (ABNORMAL) GLUCOSE - POINT OF CARE (11/11/2022 12:33 AM CDT) [facility] Glucose WB/POC 130(H) 70 - 115 mg/dL 11/11/2022 12:37 AM CDT [facility] Specimen Type Cap Fingerstick 2022 12:37 AM CDT [facility] Blood BLOOD SPECIMEN / Unknown 11/11/2022 12:33 AM CDT 11/11/2022 12:37 AM CDT Good Antunez MD LAB - POINT OF CARE ORDERABLES Performing Organization Address City/[facility]/ZIP Co de Phone Number [facility] [address] [address], [place] [phone] * TYPE + SCREEN PANEL (11/10/2022 11:38 PM CDT) [facility] Antibody Screen NEG 12:45 AM CDT [facility] ABO Rh B POS 11/11/2022 12:45 AM CDT [facility] Blood Bank BLOOD SPECIMEN / Unknown Lab Venipuncture / Unknown 11/10/2022 11:38 PM CDT 11/10/2022 11:51 PM CDT Good Antunez MD LAB - BLOOD BANK ORD ERABLES Performing Organization Address City/[facility]/ZIP Co de Phone Number [facility] [address] [place] [address], [place] [phone] * (ABNORMAL) CBC W AUTO DIFFERENTIAL (11/10/2022 11:38 PM CDT) [facility] WBC 7.1 3.5 - 10.5 10? 3 /uL 11/11/2022 1:02 AM [facility] RBC 3.22(L) 3.80 - 5.20 10? 6 /uL 11/11/2022 1:02 AM [facility] Hemoglobin 9.5(L) 12.0 - 15.6 g/dL 11/11/2022 1:02 AM [facility] Hematocrit 29.7(L) 35.0 - 45.0 % 11/11/2022 1:02 AM [facility] MCV 92.2 80.7 - 98.3 fL 11/11/2022 1:02 AM [facility] MCH 29.5 26.7 - 34.0 pg 11/11/2022 1:02 AM [facility] MCHC 32.0 30.8 - 35.9 g/dL 11/11/2022 1:02 AM [facility] RDW-SD 48.4 36.0 - 50.0 fL 11/11/2022 1:02 AM [facility] RDW-CV 14.5 11.2 - 14.8 % 11/11/2022 1:02 AM [facility] Platelet Count 297 150 - 400 10? 3 /uL 11/11/2022 1:02 AM [facility] MPV 11.1 9.4 - 12.9 fL 11/11/2022 1:02 AM [facility] nRBC Absolute 0.00 0 10? 3 /uL 11/11/2022 1:02 AM [facility] nRBC Auto 0.0 0 /100 WBC 11/11/2022 1:02 AM [facility] Neutrophils % 85.3(H) 35.0 - 70.0 % 11/11/2022 1:02 AM [facility] Lymphocytes % 10.1(L) 20.0 - 43.0 % 11/11/2022 1:02 AM [facility] Monocytes % 3.0(L) 5.0 - 13.0 % 11/11/2022 1:02 AM [facility] Eosinophils % 0.1 0.0 - 6.0 % 11/11/2022 1:02 AM [facility] Basophil % 0.1 0.0 - 2.0 % 11/11/2022 1:02 AM [facility] Neutrophils Absolute 6.01 1.60 - 7.00 10? 3 /uL 11/11/2022 1:02 AM [facility] Lymphocyte Absolute 0.71(L) 1.10 - 3.90 10? 3 /uL 11/11/2022 1:02 AM [facility] Monocytes Absolute 0.21(L) 0.26 - 1.07 10? 3 /uL 11/11/2022 1:02 AM [facility] Eosinophils Absolute 0.01 0.00 - 0.47 10? 3 /uL 11/11/2022 1:02 AM [facility] Basophils Absolute 0.01 0.00 - 0.08 10? 3 /uL 11/11/2022 1:02 AM [facility] Immature Granulocytes % 1.4(H) 0.0 - 1.0 % 11/11/2022 1:02 AM [facility] Immature Granulocytes Absolute 0.10 11/11/2022 1:02 AM [facility] Blood BLOOD SPECIMEN / Unknown Lab Venipuncture / Unknown 11/10/2022 11:38 PM CDT 11/10/2022 11:50 PM CDT Good Antunez MD LAB - HEMATOLOGY ORD ERABLES [facility] [address] [place] [address], [facility] [phone] * PTT [facility] (11/10/2022 11:38 PM CDT) APTT 36.3 23.0 - 38.4 Seconds 11/11/2022 12:07 AM [facility] Comment:Suggested therapeuti c range for full dose I.V. unfractionated heparin therapy for venous thromboembolism is 71 to 109 seconds. Blood BLOOD SPECIMEN / Unknown Lab Venipuncture / Unknown 11/10/2022 11:38 PM CDT 11/10/2022 11:56 PM CDT Good Antunez MD LAB - COAGULATION OR DERABLES Performing Organization Address [facility]/ZIP Co de Phone Number [facility] [address] [place] [address], [facility] [phone] * (ABNORMAL) PT-INR [facility] (11/10/2022 11:38 PM CDT) PT 15.6(H) 12.1 - 14.8 Seconds 11/11/2022 12:07 AM CDT [facility] INR 1.3 See Comment 11/11/2022 12:07 AM CDT [facility] Comment:The suggested therap eutic range for standard coumadin (warfarin) therapy is an INR of 2.0-3.0. For high-risk patients (Mechanical Mitral Valve Prosthesis, etc.), the suggested prophylactic therapeutic range is an INR of 2.5-3.5. Blood BLOOD SPECIMEN / Unknown Lab Venipuncture / Unknown 11/10/2022 11:38 PM CDT 11/10/2022 11:56 PM CDT Good Antunez MD LAB - COAGULATION OR DERABLES Performing Organization Address [facility]/ZIP Co de Phone Number [address] [address], [place] [phone] * (ABNORMAL) GLUCOSE - POINT OF CARE (11/10/2022 11:28 PM CDT) Glucose WB/POC 117(H) 70 - 115 mg/dL 11/10/2022 11:33 PM CDT [facility] Specimen Type Cap Fingerstick 2022 11:33 PM CDT [facility] Blood BLOOD SPECIMEN / Unknown 11/10/2022 11:28 PM CDT 11/10/2022 11:32 PM CDT Good Antunez MD LAB - POINT OF CARE ORDERABLES Performing Organization Address City/[facility]/ZIP Co de Phone Number [address] [address], [place] [phone] * (ABNORMAL) CBC W AUTO DIFFERENTIAL (11/10/2022 2:24 AM T) WBC 3.6 3.5 - 10.5 10? 3 /uL 11/10/2022 2:57 AM [facility] RBC 3.23(L) 3.80 - 5.20 10? 6 /uL 11/10/2022 2:57 AM [facility] Hemoglobin 9.4(L) 12.0 - 15.6 g/dL 11/10/2022 2:57 AM [facility] Hematocrit 29.4(L) 35.0 - 45.0 % 11/10/2022 2:57 AM [facility] MCV 91.0 80.7 - 98.3 fL 11/10/2022 2:57 AM [facility] MCH 29.1 26.7 - 34.0 pg 11/10/2022 2:57 AM [facility] MCHC 32.0 30.8 - 35.9 g/dL 11/10/2022 2:57 AM [facility] RDW-SD 47.3 36.0 - 50.0 fL 11/10/2022 2:57 AM [facility] RDW-CV 14.3 11.2 - 14.8 % 11/10/2022 2:57 AM [facility] Platelet Count 302 150 - 400 10? 3 /uL 11/10/2022 2:57 AM [facility] MPV 10.9 9.4 - 12.9 fL 11/10/2022 2:57 AM [facility] nRBC Absolute 0.00 0 10? 3 /uL 11/10/2022 2:57 AM [facility] nRBC Auto 0.0 0 /100 WBC 11/10/2022 2:57 AM [facility] Neutrophils % 64.8 35.0 - 70.0 % 11/10/2022 2:57 AM [facility] Lymphocytes % 23.7 20.0 - 43.0 % 11/10/2022 2:57 AM [facility] Monocytes % 8.4 5.0 - 13.0 % 11/10/2022 2:57 AM CDT [facility] Eosinophils % 1.4 0.0 - 6.0 % 11/10/2022 2:57 AM [facility] Basophil % 0.3 0.0 - 2.0 % 11/10/2022 2:57 AM [facility] Neutrophils Absolute 2.32 1.60 - 7.00 10? 3 /uL 11/10/2022 2:57 AM [facility] Lymphocyte Absolute 0.85(L) 1.10 - 3.90 10? 3 /uL 11/10/2022 2:57 AM T [facility] Monocytes Absolute 0.30 0.26 - 1.07 10? 3 /uL 11/10/2022 2:57 AM [facility] Eosinophils Absolute 0.05 0.00 - 0.47 10? 3 /uL 11/10/2022 2:57 AM [facility] Basophils Absolute 0.01 0.00 - 0.08 10? 3 /uL 11/10/2022 2:57 AM [facility] Immature Granulocytes % 1.4(H) 0.0 - 1.0 % 11/10/2022 2:57 AM [facility] Immature Granulocytes Absolute 0.05 11/10/2022 2:57 AM [facility] Blood BLOOD SPECIMEN / Unknown Lab Venipuncture / Unknown 11/10/2022 2:24 AM CDT 11/10/2022 2:39 AM CDT Emir Vail MD LAB - HEMATOLOGY ORD ERABLES Performing Organization Address City/State/[facility] Co de Phone Number [facility] [address] [place] [address] [phone] * (ABNORMAL) PT-INR [facility] (11/10/2022 2:23 AM CDT) PT 20.5(H) 12.1 - 14.8 Seconds 11/10/2022 2:54 AM [facility] INR 1.8 See Comment 11/10/2022 2:54 AM [facility] Comment:The suggested therap eutic range for standard coumadin (warfarin) therapy is an INR of 2.0-3.0. For high-risk patients (Mechanical Mitral Valve Prosthesis, etc.), the suggested prophylactic therapeutic range is an INR of 2.5-3.5. Blood BLOOD SPECIMEN / Unknown Lab Venipuncture / Unknown 11/10/2022 2:23 AM CDT 11/10/2022 2:29 AM CDT Emir Vail MD LAB - COAGULATION OR DERABLES Performing Organization Address City/[facility] Co de Phone Number [facility] [address] [place] [address], [facility] [phone] * (ABNORMAL) BASIC METABOLIC PANEL (CALCIUM TOTAL) (11/10/2022 2:23 AM CDT) BUN 13 7 - 26 mg/dL 11/10/2022 3:12 AM [facility] Creatinine 0.52(L) 0.56 - 0.96 mg/dL 11/10/2022 3:12 AM [facility] Sodium 136 136 - 145 mmol/L 11/10/2022 3:12 AM [facility] Potassium 3.6 3.5 - 4.5 mmol/L 11/10/2022 3:12 AM [facility] Chloride 105 98 - 107 mmol/L 11/10/2022 3:12 AM [facility] CO2 24 22 - 29 mmol/L 11/10/2022 3:12 AM [facility] Glucose 120(H) 70 - 115 mg/dL 11/10/2022 3:12 AM [facility] Calcium 8.4 8.4 - 10.2 mg/dL 11/10/2022 3:12 AM [facility] Anion Gap 11 8 - 18 11/10/2022 3:12 AM [facility] BUN/Creatinine Ratio 25(H) 7 - 23 11/10/2022 3:12 AM [facility] Osmolality Calculated 283 270 - 300 mOsm/kg 11/10/2022 3:12 AM [facility] eGFR by CKD-EPI >90 >=90 mL/min/1.7 3 m2 11/10/2022 3:12 AM CDT [facility] Blood BLOOD SPECIMEN / Unknown Lab Venipuncture / Unknown 11/10/2022 2:23 AM CDT 11/10/2022 2:39 AM CDT Emir Vail MD LAB - CHEMISTRY [place] [facility] Performing Organization Address City/[facility]/ZIP Co de Phone Number [address] [address], [facility] [phone] * PHOSPHORUS BLOOD (11/10/2022 2:23 AM CDT) Phosphorus 3.9 2.9 - 5.1 mg/dL 11/10/2022 3:12 AM CDT [facility] Blood BLOOD SPECIMEN / Unknown Lab Venipuncture / Unknown 11/10/2022 2:23 AM CDT 11/10/2022 2:39 AM CDT Emir Vail MD LAB - CHEMISTRY [place] [facility] Performing Organization Address City/[facility]/ZIP Co de Phone Number [address] [address], [place] [phone] * MAGNESIUM BLOOD (11/10/2022 2:23 AM CDT) Magnesium 2.0 1.6 - 2.6 mg/dL 11/10/2022 3:12 AM CDT [facility] Blood BLOOD SPECIMEN / Unknown Lab Venipuncture / Unknown 11/10/2022 2:23 AM CDT 11/10/2022 2:39 AM CDT Emir Vail MD LAB - CHEMISTRY [place] [facility] Performing Organization Address City/[facility]/ZIP Co de Phone Number [address] [address], [place] [phone] * MRI BRAIN WWO CONTRAST (11/09/2022 11:50 PM CDT) Anatomical Region Laterality Modality Head Magnetic Resonan [...] DATE/TIME OF EXAM: ??11/09/2022 11:51 PM, LOCATION ??[facility] INDICATION: R50.9: Fever, unspecified fever cause ADDITIONAL [...] of the right lateral ventricle and the [id number] midline shift. Extensive susceptibility artifacts along the [...] CONTRAST, DATE/TIME OF EXAM: 11/09/2022 11:51PM, LOCATION [facility] INDICATION: R50.9: Fever, unspecified fever cause ADDITIONAL [...] of the right lateral ventricle and the [id number] midline shift. Extensive susceptibility artifacts along the [...] right lateral ventricle.. There is also small [id number] focus along the right temporal lobe (image [...] PM Jaime Drew MD MR ORDERABLES * CT ABDOMEN PELVIS W CONTRAST (11/09/2022 4:47 PM CDT) Anatomical Region Laterality Modality Abdomen, Pelvis Computed Tomogra phy 11/09/2022 11:5 7 PM CDT Impressions 11/10/2022 12:05 AM CDT IMPRESSION: 1. Progressive soft tissue stranding with gas in the right inguinal region with an inflammatory mass encasing the right femoral vessels with mild narrowing of the femoral artery and moderate narrowing of the femoral vein. This could represent a postsurgical hematoma. Recommend correlation with symptoms and signs of superinfection. 2. Interval placement of a gastrostomy tube with a small gas and fluid collection along the inferior aspect of the gastrostomy tube insertion site and stomach, measuring 2.2 cm. Findings communicated with Dr. Goyal at 2005 hours on 11/09/2022 > Interpreting Provider: Pepe Gonzalez MD on 11/10/2022 12:05 AM Narrative 11/10/2022 12:05 AM CDT PROCEDURE: ??CT ABDOMEN PELVIS W CONTRAST DATE/TIME OF EXAM: ??11/09/2022 4:49 PM CLINICAL INFORMATION: None relevant/not provided if blank. 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 TECHNIQUE: CT of the abdomen and pelvis was performed following intravenous contrast utilizing standard protocol. CT dose reduction technique was used, including Automated Exposure Control. CONTRAST: ?? IOPAMIDOL 76 % IV SOLN:100 mL FINDINGS: Lung bases are clear. Liver is normal. The gallbladder is absent. The spleen is normal. The pancreas is normal. There is a duodenal diverticulum. Both adrenal glands are normal. Both kidneys enhance symmetrically with no hydronephrosis. The urinary bladder is decompressed with a Puentes catheter. Uterus is normal. A gastrostomy tube is present. There is a 2 cm rim-enhancing collection along the inferior aspect of the gastrostomy tube with small locule of gas seen on series 6 image 67 measuring 2.2 cm. There is no bowel obstruction. There is progressive soft tissue stranding with a mass in the right groin measuring 4 cm with small locules of gas, likely inflammatory mass. There is mass effect on the right femoral artery with mild narrowing as marked narrowing of the femoral vein, encased by the collection. Abdominal aorta is normal in caliber. The portal vein is patent. No suspicious osseous lytic or blastic lesion. Procedure Note Pepe Gonzalez MD - 11/10/2022 PROCEDURE: CT ABDOMEN PELVIS W CONTRAST DATE/TIME OF EXAM: 11/09/2022 4:49 PM CLINICAL INFORMATION: None relevant/not provided if blank. 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 TECHNIQUE: CT of the abdomen and pelvis was performed following intravenouscontrast utilizing standard protocol. CT dose reduction technique was used, including Automated ExposureControl. CONTRAST: IOPAMIDOL 76 % IV SOLN:100 mL FINDINGS: Lung bases are clear. Liver is normal. The gallbladder is absent. The spleen is normal. The pancreas is normal. There is a duodenal diverticulum. Both adrenal glands are normal. Both kidneys enhance symmetrically withno hydronephrosis. The urinary bladder is decompressed with a Foleycatheter. Uterus is normal. A gastrostomy tube is present. There is a 2 cm rim-enhancing collection along the inferior aspect of the gastrostomy tube with small locule ofgas seen on series 6 image 67 measuring 2.2 cm. There is no bowelobstruction. There is progressive soft tissue stranding with a mass in the rightgroin measuring 4 cm with small locules of gas, likely inflammatory mass.There is mass effect on the right femoral artery with mild narrowing as marked narrowing of the femoral vein, encased by the collection. Abdominal aorta is normal in caliber. The portal vein is patent. No suspicious osseous lytic or blastic lesion. IMPRESSION: 1. Progressive soft tissue stranding with gas in the right inguinalregion with an inflammatory mass encasing the right femoral vessels with mild narrowing of the femoral artery and moderate narrowing of the femoralvein. This could represent a postsurgical hematoma. Recommend correlation with symptoms and signs of superinfection. 2. Interval placement of a gastrostomy tube with a small gas and fluid collection along the inferior aspect of the gastrostomy tube insertionsite and stomach, measuring 2.2 cm. Findings communicated with Dr. Goyal at 2005 hours on 11/09/2022 > Interpreting Provider: Pepe Gonzalez MD on 11/10/2022 12:05 AM Jaime Drew MD CT ORDERABLES * (ABNORMAL) HEPATIC FUNCTION PANEL (11/09/2022 6:54 AM CDT) Protein Total 7.3 6.0 - 8.3 g/dL 023 7:25 AM CDT [facility] Albumin 2.6(L) 3.4 - 5.0 g/dL 11/09/2022 7:25 AM CDT [facility] Bilirubin Total 0.3 0.2 - 1.2 mg/dL 10/12 7:25 AM CDT [facility] Bilirubin Conjugated 0.1 0.1 - 0.5 mg/dL 11/09/2022 7:25 AM CDT [facility] Bilirubin Unconjugated 0.2 Unconjugated Bilirubin is a calculated value: Reference ranges have not been established. mg/dL 11/09/2022 7:25 AM CDT [facility] Alkaline Phosphatase 73 40 - 150 U/L 11/09/2022 7:25 AM CDT [facility] ALT 77(H) 5 - 55 U/L 11/09/2022 7:25 AM CDT [facility] AST 67(H) 5 - 34 U/L 11/09/2022 7:25 AM CDT [facility] Albumin/Globulin Ratio 0.6(L) 1.1 - 2.3 11/09/2022 7:25 AM CDT [facility] Blood BLOOD SPECIMEN / Unknown Lab Venipuncture / Unknown 11/09/2022 6:54 AM CDT 11/09/2022 7:06 AM CDT Angelica Cruz MD LAB - CHEMISTRY BIBIANA BLACKMAN Performing Organization Address City/[facility]/ZIP Co de Phone Number [address] [address], [facility] [phone] * VANCOMYCIN LEVEL TROUGH (11/09/2022 6:54 AM CDT) Pathologist [facility] Vancomycin Trough 18.8 10.0 - 20.0 ug/mL 11/09/2022 7:24 AM CDT [facility] Blood BLOOD SPECIMEN / Unknown Lab Venipuncture / Unknown 11/09/2022 6:54 AM CDT 11/09/2022 6:57 AM CDT Narrative [facility] - 11/09/2022 7:24 AM CDT See institution protocol. Jaime Drew MD LAB - CHEMISTRY BIBIANA BLACKMAN Performing Organization Address City/[facility]/ZIP Co de Phone Number [address] [address], [place] [phone] * (ABNORMAL) PT-INR [facility] (11/09/2022 2:37 AM CDT) PT 18.9(H) 12.1 - 14.8 Seconds 11/09/2022 3:05 AM [facility] INR 1.6 See Comment 11/09/2022 3:05 AM [facility] Comment:The suggested therap eutic range for standard coumadin (warfarin) therapy is an INR of 2.0-3.0. For high-risk patients (Mechanical Mitral Valve Prosthesis, etc.), the suggested prophylactic therapeutic range is an INR of 2.5-3.5. Blood BLOOD SPECIMEN / Unknown Lab Venipuncture / Unknown 11/09/2022 2:37 AM CDT 11/09/2022 2:48 AM CDT Emir Vail MD LAB - COAGULATION OR DERABLES [facility] [address] [place] [address], [facility] [phone] * (ABNORMAL) BASIC METABOLIC PANEL (CALCIUM TOTAL) (11/08/2022 11:46 PM CDT) BUN 9 7 - 26 mg/dL 11/09/2022 12:23 AM [facility] Creatinine 0.45(L) 0.56 - 0.96 mg/dL 11/09/2022 12:23 AM [facility] Sodium 141 136 - 145 mmol/L 11/09/2022 12:23 AM [facility] Potassium 3.9 3.5 - 4.5 mmol/L 11/09/2022 12:23 AM [facility] Chloride 107 98 - 107 mmol/L 11/09/2022 12:23 AM [facility] CO2 24 22 - 29 mmol/L 11/09/2022 12:23 AM [facility] Glucose 107 70 - 115 mg/dL 11/09/2022 12:23 AM [facility] Calcium 8.5 8.4 - 10.2 mg/dL 11/09/2022 12:23 AM [facility] Anion Gap 14 8 - 18 11/09/2022 12:23 AM [facility] BUN/Creatinine Ratio 20 7 - 23 11/09/2022 12:23 AM [facility] Osmolality Calculated 291 270 - 300 mOsm/kg 11/09/2022 12:23 AM [facility] eGFR by CKD-EPI >90 >=90 mL/min/1.7 3 m2 11/09/2022 12:23 AM [facility] Blood BLOOD SPECIMEN / Unknown Lab Venipuncture / Unknown 11/08/2022 11:46 PM CDT 11/08/2022 11:57 PM CDT Emir Vail MD LAB - CHEMISTRY BIBIANA BLACKMAN [facility] Organization Address City/State/ZIP Co de Phone Number [facility] [address] [place] [address], [facility] [phone] * (ABNORMAL) CBC W AUTO DIFFERENTIAL (11/08/2022 11:46 PM CDT) WBC 5.2 3.5 - 10.5 10? 3 /uL 11/09/2022 12:10 AM [facility] RBC 3.59(L) 3.80 - 5.20 10? 6 /uL 11/09/2022 12:10 AM [facility] Hemoglobin 10.4(L) 12.0 - 15.6 g/dL 11/09/2022 12:10 AM [facility] Hematocrit 33.1(L) 35.0 - 45.0 % 11/09/2022 12:10 AM [facility] MCV 92.2 80.7 - 98.3 fL 11/09/2022 12:10 AM [facility] MCH 29.0 26.7 - 34.0 pg 11/09/2022 12:10 AM [facility] MCHC 31.4 30.8 - 35.9 g/dL 11/09/2022 12:10 AM [facility] RDW-SD 48.2 36.0 - 50.0 fL 11/09/2022 12:10 AM [facility] RDW-CV 14.2 11.2 - 14.8 % 11/09/2022 12:10 AM [facility] Platelet Count 360 150 - 400 10? 3 /uL 11/09/2022 12:10 AM [facility] MPV 10.7 9.4 - 12.9 fL 11/09/2022 12:10 AM [facility] nRBC Absolute 0.00 0 10? 3 /uL 11/09/2022 12:10 AM [facility] nRBC Auto 0.0 0 /100 WBC 11/09/2022 12:10 AM [facility] Neutrophils % 58.8 35.0 - 70.0 % 11/09/2022 12:10 AM [facility] Lymphocytes % 24.8 20.0 - 43.0 % 11/09/2022 12:10 AM [facility] Monocytes % 12.1 5.0 - 13.0 % 11/09/2022 12:10 AM [facility] Eosinophils % 2.9 0.0 - 6.0 % 11/09/2022 12:10 AM [facility] Basophil % 0.4 0.0 - 2.0 % 11/09/2022 12:10 AM [facility] Neutrophils Absolute 3.07 1.60 - 7.00 10? 3 /uL 11/09/2022 12:10 AM [facility] Lymphocyte Absolute 1.29 1.10 - 3.90 10? 3 /uL 11/09/2022 12:10 AM [facility] Monocytes Absolute 0.63 0.26 - 1.07 10? 3 /uL 11/09/2022 12:10 AM [facility] Eosinophils Absolute 0.15 0.00 - 0.47 10? 3 /uL 11/09/2022 12:10 AM [facility] Basophils Absolute 0.02 0.00 - 0.08 10? 3 /uL 11/09/2022 12:10 AM [facility] Immature Granulocytes % 1.0 0.0 - 1.0 % 11/09/2022 12:10 AM [facility] Immature Granulocytes Absolute 0.05 11/09/2022 12:10 AM [facility] Blood BLOOD SPECIMEN / Unknown Lab Venipuncture / Unknown 11/08/2022 11:46 PM CDT 11/08/2022 11:57 PM CDT Emir Vail MD LAB - HEMATOLOGY ORD DIMAS [address] [address], [place] [phone] * PHOSPHORUS BLOOD (11/08/2022 11:46 PM CDT) Phosphorus 3.8 2.9 - 5.1 mg/dL 11/09/2022 12:23 AM CDT [facility] Blood BLOOD SPECIMEN / Unknown Lab Venipuncture / Unknown 11/08/2022 11:46 PM CDT 11/08/2022 11:57 PM CDT Emir Vail MD LAB - CHEMISTRY BIBIANA BLACKMAN Performing Organization Address City/[facility]/ZIP Co de Phone Number [address] [address], [place] [phone] * MAGNESIUM BLOOD (11/08/2022 11:46 PM CDT) Magnesium 2.0 1.6 - 2.6 mg/dL 11/09/2022 12:23 AM CDT [facility] Blood BLOOD SPECIMEN / Unknown Lab Venipuncture / Unknown 11/08/2022 11:46 PM CDT 11/08/2022 11:57 PM CDT Emir Vail MD LAB - CHEMISTRY BIBIANA BLACKMAN Performing Organization Address City/[facility]/ZIP Co de Phone Number [address] [address], [place] [phone] * VAS BILATERAL VENOUS DUPLEX LE (11/08/2022 [...] Drew MD VASCULAR LAB ORDERAB LES * (ABNORMAL) PT-INR [facility] (11/08/2022 2:54 AM CDT) PT 18.3(H) 12.1 - 14.8 Seconds 11/08/2022 4:34 AM CDT [facility] INR 1.6 See Comment 11/08/2022 4:34 AM CDT [facility] Comment:The suggested therap eutic range for standard coumadin (warfarin) therapy is an INR of 2.0-3.0. For high-risk patients (Mechanical Mitral Valve Prosthesis, etc.), the suggested prophylactic therapeutic range is an INR of 2.5-3.5. Blood BLOOD SPECIMEN / Unknown Lab Venipuncture / Unknown 11/08/2022 2:54 AM CDT 11/08/2022 3:41 AM CDT Emir Vail MD LAB - COAGULATION OR DERABLES Performing Organization Address [facility]/State/[facility] Co de Phone Number [facility] [address] [place] [address], [facility] [phone] * (ABNORMAL) BASIC METABOLIC PANEL (CALCIUM TOTAL) (11/07/2022 10:34 PM CDT) BUN 8 7 - 26 mg/dL 11/08/2022 12:05 AM CDT [facility] Creatinine 0.53(L) 0.56 - 0.96 mg/dL 11/08/2022 12:05 AM CDT [facility] Sodium 141 136 - 145 mmol/L 11/08/2022 12:05 AM CDT [facility] Potassium 3.6 3.5 - 4.5 mmol/L 11/08/2022 12:05 AM [facility] Chloride 108(H) 98 - 107 mmol/L 11/08/2022 12:05 AM [facility] CO2 22 22 - 29 mmol/L 11/08/2022 12:05 AM [facility] Glucose 107 70 - 115 mg/dL 11/08/2022 12:05 AM [facility] Calcium 8.6 8.4 - 10.2 mg/dL 11/08/2022 12:05 AM [facility] Anion Gap 15 8 - 18 11/08/2022 12:05 AM [facility] BUN/Creatinine Ratio 15 7 - 23 11/08/2022 12:05 AM [facility] Osmolality Calculated 291 270 - 300 mOsm/kg 11/08/2022 12:05 AM [facility] eGFR by CKD-EPI >90 >=90 mL/min/1.7 3 m2 11/08/2022 12:05 AM [facility] Blood BLOOD SPECIMEN / Unknown Lab Venipuncture / Unknown 11/07/2022 10:34 PM CDT 11/07/2022 11:34 PM T Emir Vail MD LAB - CHEMISTRY ANKURE [facility] Organization Address [facility]/State/ZIP Co de Phone Number [facility] [address] [place] [address], [facility] [phone] * (ABNORMAL) CBC W AUTO DIFFERENTIAL (11/07/2022 10:34 PM CDT) WBC 4.7 3.5 - 10.5 10? 3 /uL 11/07/2022 11:51 PM [facility] RBC 3.18(L) 3.80 - 5.20 10? 6 /uL 11/07/2022 11:51 PM [facility] Hemoglobin 9.2(L) 12.0 - 15.6 g/dL 11/07/2022 11:51 PM [facility] Hematocrit 29.5(L) 35.0 - 45.0 % 11/07/2022 11:51 PM [facility] MCV 92.8 80.7 - 98.3 fL 11/07/2022 11:51 PM [facility] MCH 28.9 26.7 - 34.0 pg 11/07/2022 11:51 PM [facility] MCHC 31.2 30.8 - 35.9 g/dL 11/07/2022 11:51 PM [facility] RDW-SD 47.8 36.0 - 50.0 fL 11/07/2022 11:51 PM [facility] RDW-CV 14.1 11.2 - 14.8 % 11/07/2022 11:51 PM [facility] Platelet Count 325 150 - 400 10? 3 /uL 11/07/2022 11:51 PM [facility] MPV 11.0 9.4 - 12.9 fL 11/07/2022 11:51 PM [facility] nRBC Absolute 0.00 0 10? 3 /uL 11/07/2022 11:51 PM [facility] nRBC Auto 0.0 0 /100 WBC 11/07/2022 11:51 PM [facility] Neutrophils % 57.5 35.0 - 70.0 % 11/07/2022 11:51 PM [facility] Lymphocytes % 29.9 20.0 - 43.0 % 11/07/2022 11:51 PM [facility] Monocytes % 10.7 5.0 - 13.0 % 11/07/2022 11:51 PM [facility] Eosinophils % 1.3 0.0 - 6.0 % 11/07/2022 11:51 PM [facility] Basophil % 0.2 0.0 - 2.0 % 11/07/2022 11:51 PM [facility] Neutrophils Absolute 2.70 1.60 - 7.00 10? 3 /uL 11/07/2022 11:51 PM [facility] Lymphocyte Absolute 1.40 1.10 - 3.90 10? 3 /uL 11/07/2022 11:51 PM [facility] Monocytes Absolute 0.50 0.26 - 1.07 10? 3 /uL 11/07/2022 11:51 PM CDT [facility] Eosinophils Absolute 0.06 0.00 - 0.47 10? 3 /uL 11/07/2022 11:51 PM CDT [facility] Basophils Absolute 0.01 0.00 - 0.08 10? 3 /uL 11/07/2022 11:51 PM CDT [facility] Immature Granulocytes % 0.4 0.0 - 1.0 % 11/07/2022 11:51 PM CDT [facility] Immature Granulocytes Absolute 0.02 11/07/2022 11:51 PM CDT [facility] Blood BLOOD SPECIMEN / Unknown Lab Venipuncture / Unknown 11/07/2022 10:34 PM CDT 11/07/2022 11:34 PM CDT Emir Vail MD LAB - HEMATOLOGY ORD ERABLES Performing Organization Address City/[facility]/ZIP Co de Phone Number [address] [address], [facility] [phone] * PHOSPHORUS BLOOD (11/07/2022 10:34 PM CDT) Phosphorus 4.3 2.9 - 5.1 mg/dL 11/08/2022 12:05 AM CDT [facility] Blood BLOOD SPECIMEN / Unknown Lab Venipuncture / Unknown 11/07/2022 10:34 PM CDT 11/07/2022 11:34 PM CDT Emir Vail MD LAB - CHEMISTRY ORDE HIRAL [address] [address], [place] [phone] * (ABNORMAL) MAGNESIUM BLOOD (11/07/2022 10:34 PM CDT) Magnesium 2.8(H) 1.6 - 2.6 mg/dL 11/08/2022 12:05 AM CDT [facility] Blood BLOOD SPECIMEN / Unknown Lab Venipuncture / Unknown 11/07/2022 10:34 PM CDT 11/07/2022 11:34 PM CDT Emir Vail MD LAB - CHEMISTRY ORDDanyelle BLACKMAN [facility] [address] [place] [address], [facility] [phone] * CT ANGIO CHEST PULM EMBOLISM (11/07/2022 5:22 PM CDT) Anatomical Region Laterality Modality Chest Computed Tomogra phy 11/07/2022 5:34 PM CDT Impressions 11/07/2022 10:30 PM CDT Impression: 1.No evidence of acute pulmonary embolism. There is no radiographic evidence of right heart strain. 2.No other acute process within the chest. > Dictated by Tim Major MD (resident services coordinator). IAlexx have personally reviewed and interpreted this examination/study. > Interpreting Provider: Alexx Lopez on 11/07/2022 10:30 PM Narrative 11/07/2022 10:30 PM CDT PROCEDURE: ??CT ANGIO CHEST PULM EMBOLISM, DATE/TIME OF EXAM: ??11/07/2022 5:25 PM, LOCATION ??[facility] INDICATION: R50.9: Fever, unspecified fever cause ADDITIONAL [...] DATE/TIME OF EXAM: 11/07/2022 5:25 PM, LOCATION [facility] INDICATION: R50.9: Fever, unspecified fever cause ADDITIONAL [...] chest. > Dictated by Tim Major MD (resident services coordinator). I, Alexx Lopez have personally reviewed and interpreted this examination/study. > Interpreting Provider: Alexx Lopez on 11/07/2022 10:30 PM Jaime Drew MD CT ORDERABLES * (ABNORMAL) PT-INR [facility] (11/07/2022 3:05 AM CDT) PT 18.4(H) 12.1 - 14.8 Seconds 11/07/2022 4:26 AM CDT [facility] INR 1.6 See Comment 11/07/2022 4:26 AM T [facility] Comment:The suggested therap eutic range for standard coumadin (warfarin) therapy is an INR of 2.0-3.0. For high-risk patients (Mechanical Mitral Valve Prosthesis, etc.), the suggested prophylactic therapeutic range is an INR of 2.5-3.5. Blood BLOOD SPECIMEN / Unknown Lab Venipuncture / Unknown 11/07/2022 3:05 AM CDT 11/07/2022 3:51 AM CDT Emir Vail MD LAB - COAGULATION OR DERABLES Performing Organization Address City/[facility]/ZIP Co de Phone Number [address] [address], [facility] [phone] * (ABNORMAL) PTT [facility] (11/06/2022 11:12 PM CDT) APTT 63.4(H) 23.0 - 38.4 Seconds 11/07/2022 12:00 AM CDT [facility] Comment:Suggested therapeuti c range for full dose I.V. unfractionated heparin therapy for venous thromboembolism is 71 to 109 seconds. Blood BLOOD SPECIMEN / Unknown Lab Venipuncture / Unknown 11/06/2022 11:12 PM CDT 11/06/2022 11:42 PM CDT Jaime Drew MD LAB - COAGULATION OR DERABLES Performing Organization Address [facility]/ZIP Co de Phone Number [address] [address], [facility] [phone] * (ABNORMAL) BASIC METABOLIC PANEL (CALCIUM TOTAL) (11/06/2022 11:12 PM CDT) BUN 8 7 - 26 mg/dL 11/07/2022 12:13 AM CDT [facility] Creatinine 0.46(L) 0.56 - 0.96 mg/dL 11/07/2022 12:13 AM CDT [facility] Sodium 140 136 - 145 mmol/L 11/07/2022 12:13 AM CDT [facility] Potassium 3.6 3.5 - 4.5 mmol/L 11/07/2022 12:13 AM [facility] Chloride 108(H) 98 - 107 mmol/L 11/07/2022 12:13 AM [facility] CO2 22 22 - 29 mmol/L 11/07/2022 12:13 AM [facility] Glucose 107 70 - 115 mg/dL 11/07/2022 12:13 AM [facility] Calcium 8.5 8.4 - 10.2 mg/dL 11/07/2022 12:13 AM [facility] Anion Gap 14 8 - 18 11/07/2022 12:13 AM [facility] BUN/Creatinine Ratio 17 7 - 23 11/07/2022 12:13 AM [facility] Osmolality Calculated 289 270 - 300 mOsm/kg 11/07/2022 12:13 AM [facility] eGFR by CKD-EPI >90 >=90 mL/min/1.7 3 m2 11/07/2022 12:13 AM [facility] Blood BLOOD SPECIMEN / Unknown Lab Venipuncture / Unknown 11/06/2022 11:12 PM CDT 11/06/2022 11:44 PM CDT Emir Vail MD LAB - CHEMISTRY ORDE [facility] Organization Address City/State/ZIP Co de Phone Number [facility] [address] [place] [address], [facility] [phone] * (ABNORMAL) CBC W AUTO DIFFERENTIAL (11/06/2022 11:12 PM CDT) WBC 4.7 3.5 - 10.5 10? 3 /uL 11/06/2022 11:51 PM [facility] RBC 3.20(L) 3.80 - 5.20 10? 6 /uL 11/06/2022 11:51 PM [facility] Hemoglobin 9.3(L) 12.0 - 15.6 g/dL 11/06/2022 11:51 PM [facility] Hematocrit 29.5(L) 35.0 - 45.0 % 11/06/2022 11:51 PM [facility] MCV 92.2 80.7 - 98.3 fL 11/06/2022 11:51 PM [facility] MCH 29.1 26.7 - 34.0 pg 11/06/2022 11:51 PM [facility] MCHC 31.5 30.8 - 35.9 g/dL 11/06/2022 11:51 PM [facility] RDW-SD 47.7 36.0 - 50.0 fL 11/06/2022 11:51 PM [facility] RDW-CV 14.1 11.2 - 14.8 % 11/06/2022 11:51 PM [facility] Platelet Count 195 150 - 400 10? 3 /uL 11/06/2022 11:51 PM [facility] MPV 11.8 9.4 - 12.9 fL 11/06/2022 11:51 PM [facility] nRBC Absolute 0.00 0 10? 3 /uL 11/06/2022 11:51 PM [facility] nRBC Auto 0.0 0 /100 WBC 11/06/2022 11:51 PM [facility] Neutrophils % 47.0 35.0 - 70.0 % 11/06/2022 11:51 PM [facility] Lymphocytes % 36.7 20.0 - 43.0 % 11/06/2022 11:51 PM [facility] [facility] Monocytes % 11.9 5.0 - 13.0 % 11/06/2022 11:51 PM [facility] Eosinophils % 3.2 0.0 - 6.0 % 11/06/2022 11:51 PM [facility] Basophil % 0.4 0.0 - 2.0 % 11/06/2022 11:51 PM [facility] Neutrophils Absolute 2.21 1.60 - 7.00 10? 3 /uL 11/06/2022 11:51 PM [facility] Lymphocyte Absolute 1.73 1.10 - 3.90 10? 3 /uL 11/06/2022 11:51 PM [facility] Monocytes Absolute 0.56 0.26 - 1.07 10? 3 /uL 11/06/2022 11:51 PM [facility] Eosinophils Absolute 0.15 0.00 - 0.47 10? 3 /uL 11/06/2022 11:51 PM CDT [facility] Basophils Absolute 0.02 0.00 - 0.08 10? 3 /uL 11/06/2022 11:51 PM CDT [facility] Immature Granulocytes % 0.8 0.0 - 1.0 % 11/06/2022 11:51 PM CDT [facility] Immature Granulocytes Absolute 0.04 11/06/2022 11:51 PM CDT [facility] Blood BLOOD SPECIMEN / Unknown Lab Venipuncture / Unknown 11/06/2022 11:12 PM CDT 11/06/2022 11:44 PM CDT Emir Vail MD LAB - HEMATOLOGY ORD ERABLES [facility] [address] [place] [address], [facility] [phone] * PHOSPHORUS BLOOD (11/06/2022 11:12 PM CDT) Phosphorus 4.3 2.9 - 5.1 mg/dL 11/07/2022 12:13 AM CDT [facility] Blood BLOOD SPECIMEN / Unknown Lab Venipuncture / Unknown 11/06/2022 11:12 PM CDT 11/06/2022 11:44 PM CDT Emir Vail MD LAB - CHEMISTRY ORDE HIRAL [facility] [address] [place] [address], [facility] [phone] * MAGNESIUM BLOOD (11/06/2022 11:12 PM CDT) Magnesium 2.0 1.6 - 2.6 mg/dL 11/07/2022 12:13 AM CDT [facility] Blood BLOOD SPECIMEN / Unknown Lab Venipuncture / Unknown 11/06/2022 11:12 PM CDT 11/06/2022 11:44 PM CDT Emir Vail MD LAB - CHEMISTRY ORDE ANNEMARIEKAREN Performing Organization Address City/[facility]/ZIP Co de Phone Number [facility] [address] [place] [address], [place] [phone] * (ABNORMAL) PTT [facility] (11/06/2022 6:30 PM CDT) APTT 68.6(H) 23.0 - 38.4 Seconds 11/06/2022 7:03 PM CDT [facility] Comment:Suggested therapeuti c range for full dose I.V. unfractionated heparin therapy for venous thromboembolism is 71 to 109 seconds. Blood BLOOD SPECIMEN / Unknown Lab Venipuncture / Unknown 11/06/2022 6:30 PM CDT 11/06/2022 6:33 PM CDT Jaime Drew MD LAB - COAGULATION OR DERABLES Performing Organization Address [facility]/ZIP Co de Phone Number [facility] [address] [place] [address], [place] [phone] * ECHO COMPLETE W CONTRAST (11/06/2022 1:49 PM CDT) BSA [id number] m2 [facility] CV FUJ I PACS LV [...] PACS MV DT 168 ms [facility] CV FUJ I PACS MV E' septal arianna 10.702 cm/s [facility] CV FUJI PACS MV A duration 122 ms [facility] CV FUJI PACS MV E/e' septal 9.596 [facility] C V FUJI PACS MV E/e' lateral 7.262 [facility] CV FUJI PACS TR pk arianna 224.0 cm/s [facility] CV FUJ I PACS LVOT pk arianna 0.91 m/s [facility] CV F UJI PACS LVOT mn arianna 0.54 m/s [facility] CV F UJI PACS LVOT mn grad 1.4 mmHg [facility] CV FUJI PACS LVOT Cardiac Output 4.588 l/min [facility] CV FUJI PACS LVOT Cardiac Index 2.17 l/min/m2 [facility] CV FUJI PACS LA vol BP A-L 54.925 mL [facility] CV FUJI PACS RV-mahmood basal diam 3.2 2.5 - 4.1 cm [facility] CV FUJI PACS RV-mahmood longitudinal diam 8.8 5.9 - 8.3 cm [facility] CV FUJI PACS RVIDd 3.0 cm [facility] CV [email or web address]] I PACS RVOT VTI 17.595 cm [facility] CV [facility] [[email or web address]] I PACS TAPSE 2.324 1.7 cm [facility] CV [facility] [[email or web address]] I PACS RVOT pk arianna 0.85 m/s [facility] CV F U PACS RA area 19.252 cm2 [facility] CV [facility] [[email or web address]] I PACS AV mn grad 5 mmHg [facility] CV FU JI PACS AV pk grad 10 mmHg [facility] CV FU JI PACS AV mn arianna 1.02 m/s [facility] CV [facility] [[email or web address]] I PACS AV pk arianna 1.59 m/s [facility] CV [facility] [[email or web address]] I PACS AV VTI 31.153 cm [facility] CV [facility] [[email or web address] I PACS LVOT pk grad 3.307 mmHg [facility] CV FUJI PACS LVOT VTI 18.891 cm [facility] CV [facility] [[email or web address]] I PACS AV area cont VTI 2.5 [...] HR 153 [facility] CV FUJ I PACS [id number] 6.938 cm [facility] CV FUJ I PACS [id number] 6.869 cm [facility] CV FUJ I PACS [...] CV FUJ I PACS TV pk arianna [id number] cm/s [facility] CV FUJI PACS TV mn [...] Jaime Drew MD ECHO CUPID * (ABNORMAL) PTT [facility] (11/06/2022 7:40 AM CDT) APTT 97.1(H) 23.0 - 38.4 Seconds 11/06/2022 8:29 AM CDT [facility] Comment:Suggested therapeuti c range for full dose I.V. unfractionated heparin therapy for venous thromboembolism is 71 to 109 seconds. Blood BLOOD SPECIMEN / Unknown Lab Venipuncture / Unknown 11/06/2022 7:40 AM CDT 11/06/2022 8:12 AM CDT Jaime Drew MD LAB - COAGULATION OR DERABLES [facility] [address] [place] [address], [facility] [phone] * (ABNORMAL) PT-INR [facility] (11/06/2022 1:36 AM CDT) PT 17.1(H) 12.1 - 14.8 Seconds 11/06/2022 1:58 AM CDT [facility] INR 1.4 See Comment 11/06/2022 1:58 AM CDT [facility] Comment:The suggested therap eutic range for standard coumadin (warfarin) therapy is an INR of 2.0-3.0. For high-risk patients (Mechanical Mitral Valve Prosthesis, etc.), the suggested prophylactic therapeutic range is an INR of 2.5-3.5. Blood BLOOD SPECIMEN / Unknown Venipuncture / Unknown 11/06/2022 1:36 AM CDT 11/06/2022 1:39 AM CDT Emir Vail MD LAB - COAGULATION OR DERABLES Performing Organization Address [facility]/ZIP Co de Phone Number [address] [address], [facility] [phone] * (ABNORMAL) PTT [facility] (11/06/2022 1:36 AM CDT) APTT 100.4(HH) 23.0 - 38.4 Seconds 11/06/2022 1:58 AM CDT [facility] Comment:Suggested therapeuti c range for full dose I.V. unfractionated heparin therapy for venous thromboembolism is 71 to 109 seconds. Blood BLOOD SPECIMEN / Unknown Venipuncture / Unknown 11/06/2022 1:36 AM CDT 11/06/2022 1:39 AM CDT Jaime Drew MD LAB - COAGULATION OR DERABLES Performing Organization Address [facility] Co de Phone Number [address] [address], [facility] [phone] * (ABNORMAL) BASIC METABOLIC PANEL (CALCIUM TOTAL) (11/06/2022 1:36 AM CDT) Pathologist [facility] BUN 8 7 - 26 mg/dL 11/06/2022 2:10 AM [facility] Creatinine 0.56 0.56 - 0.96 mg/dL 11/06/2022 2:10 AM [facility] Sodium 139 136 - 145 mmol/L 11/06/2022 2:10 AM [facility] Potassium 3.5 3.5 - 4.5 mmol/L 11/06/2022 2:10 AM [facility] Chloride 111(H) 98 - 107 mmol/L 11/06/2022 2:10 AM [facility] CO2 21(L) 22 - 29 mmol/L 11/06/2022 2:10 AM [facility] Glucose 144(H) 70 - 115 mg/dL 11/06/2022 2:10 AM [facility] Calcium 8.3(L) 8.4 - 10.2 mg/dL 11/06/2022 2:10 AM [facility] Anion Gap 11 8 - 18 11/06/2022 2:10 AM [facility] BUN/Creatinine Ratio 14 7 - 23 11/06/2022 2:10 AM [facility] Osmolality Calculated 289 270 - 300 mOsm/kg 11/06/2022 2:10 AM [facility] eGFR by CKD-EPI >90 >=90 mL/min/1.7 3 m2 11/06/2022 2:10 AM [facility] Blood BLOOD SPECIMEN / Unknown Venipuncture / Unknown 11/06/2022 1:36 AM CDT 11/06/2022 1:42 AM CDT Emir Vail MD LAB - CHEMISTRY BIBIANA BLACKMAN [facility] Organization Address City/State/ZIP Co de Phone Number [address] [address] [phone] * (ABNORMAL) CBC W AUTO DIFFERENTIAL (11/06/2022 1:36 AM CDT) WBC 6.5 3.5 - 10.5 10? 3 /uL 11/06/2022 1:52 AM [facility] RBC 3.42(L) 3.80 - 5.20 10? 6 /uL 11/06/2022 1:52 AM [facility] Hemoglobin 10.0(L) 12.0 - 15.6 g/dL 11/06/2022 1:52 AM [facility] Hematocrit 32.8(L) 35.0 - 45.0 % 11/06/2022 1:52 AM [facility] MCV 95.9 80.7 - 98.3 fL 11/06/2022 1:52 AM [facility] MCH 29.2 26.7 - 34.0 pg 11/06/2022 1:52 AM [facility] MCHC 30.5(L) 30.8 - 35.9 g/dL 11/06/2022 1:52 AM [facility] RDW-SD 49.5 36.0 - 50.0 fL 11/06/2022 1:52 AM [facility] RDW-CV 14.2 11.2 - 14.8 % 11/06/2022 1:52 AM [facility] Platelet Count 155 150 - 400 10? 3 /uL 11/06/2022 1:52 AM [facility] MPV 10.9 9.4 - 12.9 fL 11/06/2022 1:52 AM [facility] nRBC Absolute 0.00 0 10? 3 /uL 11/06/2022 1:52 AM [facility] nRBC Auto 0.0 0 /100 WBC 11/06/2022 1:52 AM [facility] Neutrophils % 71.1(H) 35.0 - 70.0 % 11/06/2022 1:52 AM [facility] Lymphocytes % 19.0(L) 20.0 - 43.0 % 11/06/2022 1:52 AM [facility] Monocytes % 8.0 5.0 - 13.0 % 11/06/2022 1:52 AM [facility] Eosinophils % 0.5 0.0 - 6.0 % 11/06/2022 1:52 AM [facility] Basophil % 0.5 0.0 - 2.0 % 11/06/2022 1:52 AM [facility] Neutrophils Absolute 4.65 1.60 - 7.00 10? 3 /uL 11/06/2022 1:52 AM [facility] Lymphocyte Absolute 1.24 1.10 - 3.90 10? 3 /uL 11/06/2022 1:52 AM [facility] Monocytes Absolute 0.52 0.26 - 1.07 10? 3 /uL 11/06/2022 1:52 AM [facility] Eosinophils Absolute 0.03 0.00 - 0.47 10? 3 /uL 11/06/2022 1:52 AM [facility] Basophils Absolute 0.03 0.00 - 0.08 10? 3 /uL 11/06/2022 1:52 AM [facility] Immature Granulocytes % 0.9 0.0 - 1.0 % 11/06/2022 1:52 AM CDT [facility] Immature Granulocytes Absolute 0.06 11/06/2022 1:52 AM CDT [facility] Blood BLOOD SPECIMEN / Unknown Venipuncture / Unknown 11/06/2022 1:36 AM CDT 11/06/2022 1:42 AM CDT Emir Vail MD LAB - HEMATOLOGY ORD ERABLES [address] [address], [facility] [phone] * PHOSPHORUS BLOOD (11/06/2022 1:36 AM CDT) Phosphorus 3.6 2.9 - 5.1 mg/dL 11/06/2022 2:10 AM CDT [facility] Blood BLOOD SPECIMEN / Unknown Venipuncture / Unknown 11/06/2022 1:36 AM CDT 11/06/2022 1:42 AM CDT Emir Vail MD LAB - CHEMISTRY BIBIANA BLACKMAN Performing Organization Address City/[facility]/ZIP Co de Phone Number [address] [address], [facility] [phone] * MAGNESIUM BLOOD (11/06/2022 1:36 AM CDT) Magnesium 2.0 1.6 - 2.6 mg/dL 11/06/2022 2:10 AM CDT [facility] Blood BLOOD SPECIMEN / Unknown Venipuncture / Unknown 11/06/2022 1:36 AM CDT 11/06/2022 1:42 AM CDT Emir Vail MD LAB - CHEMISTRY ORDDanyelle BLACKMAN Performing Organization Address City/[facility]/ZIP Co de Phone Number [address] [address], [place] [phone] * (ABNORMAL) C-REACTIVE PROTEIN (11/06/2022 1:36 AM CDT) C-Reactive Protein 7.1(H) <=0.5 mg/dL 11/06/2022 2:08 AM [facility] Blood BLOOD SPECIMEN / Unknown Venipuncture / Unknown 11/06/2022 1:36 AM CDT 11/06/2022 1:40 AM CDT Jaime Drew MD LAB - CHEMISTRY BIBIANA BLACKMAN [facility] Organization Address City/[facility]/ZIP Co de Phone Number [facility] [address] [place] [address] [phone] * (ABNORMAL) CBC W AUTO DIFFERENTIAL (11/06/2022 1:36 AM CDT) WBC 7.9 3.5 - 10.5 10? 3 /uL 11/06/2022 1:45 AM [facility] RBC 3.28(L) 3.80 - 5.20 10? 6 /uL 11/06/2022 1:45 AM [facility] Hemoglobin 9.7(L) 12.0 - 15.6 g/dL 11/06/2022 1:45 AM [facility] Hematocrit 30.2(L) 35.0 - 45.0 % 11/06/2022 1:45 AM [facility] MCV 92.1 80.7 - 98.3 fL 11/06/2022 1:45 AM [facility] MCH 29.6 26.7 - 34.0 pg 11/06/2022 1:45 AM [facility] MCHC 32.1 30.8 - 35.9 g/dL 11/06/2022 1:45 AM [facility] RDW-SD 47.8 36.0 - 50.0 fL 11/06/2022 1:45 AM [facility] RDW-CV 14.2 11.2 - 14.8 % 11/06/2022 1:45 AM [facility] Platelet Count 247 150 - 400 10? 3 /uL 11/06/2022 1:45 AM [facility] MPV 10.7 9.4 - 12.9 fL 11/06/2022 1:45 AM [facility] nRBC Absolute 0.00 0 10? 3 /uL 11/06/2022 1:45 AM [facility] nRBC Auto 0.0 0 /100 WBC 11/06/2022 1:45 AM [facility] Neutrophils % 70.9(H) 35.0 - 70.0 % 11/06/2022 1:45 AM [facility] Lymphocytes % 17.4(L) 20.0 - 43.0 % 11/06/2022 1:45 AM [facility] Monocytes % 9.8 5.0 - 13.0 % 11/06/2022 1:45 AM [facility] Eosinophils % 0.4 0.0 - 6.0 % 11/06/2022 1:45 AM [facility] Basophil % 0.4 0.0 - 2.0 % 11/06/2022 1:45 AM [facility] Neutrophils Absolute 5.62 1.60 - 7.00 10? 3 /uL 11/06/2022 1:45 AM [facility] Lymphocyte Absolute 1.38 1.10 - 3.90 10? 3 /uL 11/06/2022 1:45 AM [facility] Monocytes Absolute 0.78 0.26 - 1.07 10? 3 /uL 11/06/2022 1:45 AM [facility] Eosinophils Absolute 0.03 0.00 - 0.47 10? 3 /uL 11/06/2022 1:45 AM [facility] Basophils Absolute 0.03 0.00 - 0.08 10? 3 /uL 11/06/2022 1:45 AM [facility] Immature Granulocytes % 1.1(H) 0.0 - 1.0 % 11/06/2022 1:45 AM [facility] Immature Granulocytes Absolute 0.09 11/06/2022 1:45 AM [facility] Blood BLOOD SPECIMEN / Unknown Venipuncture / Unknown 11/06/2022 1:36 AM CDT 11/06/2022 1:42 AM T Jaime Drew MD LAB - HEMATOLOGY ORD ERABLES Performing Organization Address [facility]/ZIP Co de Phone Number [facility] [address] [place] [address], [place] [phone] * TSH REFLEX FREE T4 (11/06/2022 1:36 AM CDT) [facility] TSH 1.682 0.350 - 4.940 uIU/mL 11/06/2022 2:28 AM CDT [facility] Blood BLOOD SPECIMEN / Unknown Venipuncture / Unknown 11/06/2022 1:36 AM CDT 11/06/2022 1:42 AM CDT Jaime Drew MD LAB - CHEMISTRY BIBIANA BLACKMAN Performing Organization Address [facility] Co de Phone Number [facility] [address] [place] [address], [facility] [phone] * (ABNORMAL) D-DIMER (11/06/2022 1:36 AM CDT) [facility] D-Dimer Quantitative 2.30(H) <=0.50 mcg/mL FEU 11/06/2022 1:54 AM CDT [facility] Comment: In the absence of clinical symptoms, [...] Drew MD LAB - COAGULATION OR DERABLES [address] [address], [facility] [phone] * XR ABDOMEN KUB PORTABLE (11/05/2022 5:28 PM CDT) Anatomical Region Laterality Modality Abdomen Radiographic Irene ging 11/06/2022 7:14 AM CDT Impressions 11/06/2022 10:30 PM CDT IMPRESSION: Non-obstructive bowel gas pattern. Report dictated by Mc Castro MD, (resident services coordinator). I, Pepe Gonzalez MD have personally reviewed and interpreted this examination/study. > Interpreting Provider: Pepe Gonzalez MD on 11/06/2022 10:30 PM Narrative 11/06/2022 10:30 PM CDT PROCEDURE: ??XR ABDOMEN KUB PORTABLE, DATE/TIME OF EXAM: ??11/05/2022 5:28 PM, LOCATION ??[facility] INDICATION: R50.9: Fever, unspecified fever cause ADDITIONAL [...] PORTABLE, DATE/TIME OF EXAM: 11/05/2022 5:28PM, LOCATION [facility] INDICATION: R50.9: Fever, unspecified fever cause ADDITIONAL [...] pattern. Report dictated by Mc Castro MD, (resident services coordinator). I, Pepe Gonzalez MD have personally reviewed and interpreted this examination/study. > Interpreting Provider: Pepe Gonzalez MD on 11/06/2022 10:30 PM Jaime Drew MD DIAGNOSTIC IMAGING O RDERABLES * PTT [facility] (11/05/2022 4:58 PM CDT) APTT 27.5 23.0 - 38.4 Seconds 11/05/2022 5:29 PM CDT [facility] Comment:Suggested therapeuti c range for full dose I.V. unfractionated heparin therapy for venous thromboembolism is 71 to 109 seconds. Blood BLOOD SPECIMEN / Unknown Venipuncture / Unknown 11/05/2022 4:58 PM CDT 11/05/2022 5:03 PM CDT Jaime Drew MD LAB - COAGULATION OR DERABLES Performing Organization Address City/State/[facility] Co de Phone Number [facility] [address] [place] [address], [facility] [phone] * RESPIRATORY PANEL WITH SARS-COV-2 BY PCR (STL) (11/05/2022 1:10 PM CDT) Adenovirus PCR Not detected Not detected 11/05/2022 5:32 PM CDT [facility] Coronavirus 229E PCR Not detected Not detected 11/05/2022 5:32 PM CDT [facility] Coronavirus HKU1 PCR Not detected Not detected 11/05/2022 5:32 PM CDT [facility] Coronavirus NL63 PCR Not detected Not detected 11/05/2022 5:32 PM CDT [facility] Coronavirus OC43 PCR Not detected Not detected 11/05/2022 5:32 PM CDT [facility] COVID-19 PCR Not detected Not detected 11/05/2022 5:32 PM CDT [facility] Human Metapneumovirus PCR Not detected Not detected 11/05/2022 5:32 PM CDT [facility] Human Rhinovirus/Enterov irus PCR Not detected Not detected 11/05/2022 5:32 PM CDT [facility] Influenza A PCR Not detected Not detected 11/05/2022 5:32 PM CDT [facility] Influenza B PCR Not detected Not detected 11/05/2022 5:32 PM CDT [facility] Parainfluenza Virus 1 PCR Not detected Not detected 11/05/2022 5:32 PM CDT [facility] Parainfluenza Virus 2 PCR Not detected Not detected 11/05/2022 5:[address] [facility] Parainfluenza Virus 3 PCR Not detected Not detected 11/05/2022 5:[address] [facility] Parainfluenza Virus 4 PCR Not detected Not detected 11/05/2022 5:[address] [facility] Respiratory Syncytial Virus PCR Not detected Not detected 11/05/2022 5:32 PM CDT [facility] Bordetella parapertussis PCR Not detected Not detected 11/05/2022 5:32 PM CDT [facility] Bordetella pertussis PCR Not detected Not detected 11/05/2022 5:[address] [facility] Chlamydia pneumoniae PCR Not detected Not detected 11/05/2022 5:32 PM CDT [facility] Mycoplasma pneumoniae PCR Not detected Not detected 11/05/2022 5:[address] [facility] Microbiology SPECIMEN FROM NASOPHARYNGEAL STRUCTURE / Unknown Collection / Unknown 11/05/2022 1:10 PM CDT 11/05/2022 1:41 PM CDT [facility] - 11/05/2022 5:32 PM CDT This nucleic amplification assay has received FDA authorization via the [employer]. Jaime Drew MD LAB - MICROBIOLOGY O RDERABLES [facility] [address] [place] [address], [facility] [phone] * CULTURE URINE (11/05/2022 1:07 PM CDT) Culture Urine No growth (<100 CFU/mL) ROSELIA 11/06/2022 4:17 PM CDT [facility] Urine URINE SPECIMEN OBTAINED BY SINGLE CATHETERIZATION OF URINARY BLADDER / Unknown Collection / Unknown 11/05/2022 1:07 PM CDT 11/05/2022 1:41 PM CDT Jaime Drew MD LAB - MICROBIOLOGY O RDERABLES [facility] [address] [place] [address], [facility] [phone] * (ABNORMAL) URINALYSIS REFLEX TO MICROSCOPIC NO CULTURE (11/05/2022 12:54 PM CDT) Color UA Yellow Straw, Yellow 11/05/2022 1:53 PM CDT [facility] Clarity UA Slt Cloudy(A) Clear 11/05/2022 1:53 PM CDT [facility] Specific [place] UA 1.016 1.005 - 1.030 11/05/2022 1:53 PM CDT [facility] pH UA 7.0 5.0 - 8.0 pH 11/05/2022 1:53 PM CDT [facility] Protein UA Negative Negative 11/05/2022 1:53 PM CDT [facility] Glucose UA Negative Negative 11/05/2022 1:53 PM CDT [facility] Ketone UA Negative Negative 11/05/2022 1:53 PM CDT [facility] Bilirubin UA Negative Negative 11/05/2022 1:53 PM CDT [facility] Blood UA 1+(A) Negative 11/05/2022 1:53 PM CDT [facility] Nitrite UA Negative Negative 11/05/2022 1:53 PM CDT [facility] Leukocyte Esterase Negative Negative 11/05/2022 1:53 PM CDT [facility] Urobilinogen UA Negative Negative mg/dL 11/05/2022 1:53 PM [facility] RBC UA 51-100(A) None Seen, 0-2, 3-5 /HPF 11/05/2022 1:53 PM [facility] WBC UA 6-10(A) None Seen, 0-5 /HPF 11/05/2022 1:53 PM T [facility] Bacteria UA Trace(A) None /HPF 11/05/2022 1:53 PM [facility] Squamous Epithelial Cells UA 0-2 None Seen, 0-2, 3-5 /HPF 11/05/2022 1:53 PM T [facility] Mucus UA 1+ /LPF 11/05/2022 1:53 PM [facility] Amorphous Crystals Rare(A) None /HPF 11/05/2022 1:53 PM [facility] Urine URINE SPECIMEN OBTAINED BY SINGLE CATHETERIZATION OF URINARY BLADDER / Unknown Collection / Unknown 11/05/2022 12:54 PM CDT 11/05/2022 1:41 PM CDT [facility] - 11/05/2022 1:53 PM CDT Jaime Drew MD LAB - URINALYSIS ORD ERABLES [facility] [address] [place] [id number], [facility] [phone] * (ABNORMAL) CBC W AUTO DIFFERENTIAL (11/05/2022 12:27 PM CDT) WBC 6.9 3.5 - 10.5 10? 3 /uL 11/05/2022 1:02 PM [facility] RBC 3.24(L) 3.80 - 5.20 10? 6 /uL 11/05/2022 1:02 PM [facility] Hemoglobin 9.7(L) 12.0 - 15.6 g/dL 11/05/2022 1:02 PM [facility] Hematocrit 29.6(L) 35.0 - 45.0 % 11/05/2022 1:02 PM [facility] MCV 91.4 80.7 - 98.3 fL 11/05/2022 1:02 PM [facility] MCH 29.9 26.7 - 34.0 pg 11/05/2022 1:02 PM [facility] MCHC 32.8 30.8 - 35.9 g/dL 11/05/2022 1:02 [facility] RDW-SD 47.6 36.0 - 50.0 fL 11/05/2022 1:02 [facility] RDW-CV 14.2 11.2 - 14.8 % 11/05/2022 1:02 PM [facility] Platelet Count 344 150 - 400 10? 3 /uL 11/05/2022 1:02 PM [facility] MPV 10.3 9.4 - 12.9 fL 11/05/2022 1:02 PM [facility] nRBC Absolute 0.00 0 10? 3 /uL 11/05/2022 1:02 PM [facility] nRBC Auto 0.0 0 /100 WBC 11/05/2022 1:02 [facility] Neutrophils % 62.1 35.0 - 70.0 % 11/05/2022 1:02 [facility] Lymphocytes % 22.5 20.0 - 43.0 % 11/05/2022 1:02 [facility] Monocytes % 13.2(H) 5.0 - 13.0 % 11/05/2022 1:02 [facility] Eosinophils % 0.9 0.0 - 6.0 % 11/05/2022 1:02 PM [facility] Basophil % 0.6 0.0 - 2.0 % 11/05/2022 1:02 PM [facility] Neutrophils Absolute 4.27 1.60 - 7.00 10? 3 /uL 11/05/2022 1:02 PM [facility] Lymphocyte Absolute 1.55 1.10 - 3.90 10? 3 /uL 11/05/2022 1:02 PM [facility] Monocytes Absolute 0.91 0.26 - 1.07 10? 3 /uL 11/05/2022 1:02 PM [facility] Eosinophils Absolute 0.06 0.00 - 0.47 10? 3 /uL 11/05/2022 1:02 PM [facility] Basophils Absolute 0.04 0.00 - 0.08 10? 3 /uL 11/05/2022 1:02 PM [facility] Immature Granulocytes % 0.7 0.0 - 1.0 % 11/05/2022 1:02 PM [facility] Immature Granulocytes Absolute 0.05 11/05/2022 1:02 PM [facility] Blood BLOOD SPECIMEN / Unknown Venipuncture / Unknown 11/05/2022 12:27 PM CDT 11/05/2022 12:45 PM T Emir Vail MD LAB - HEMATOLOGY ORD ERABLES [facility] [address] [place] [address], [facility] [phone] * (ABNORMAL) BASIC METABOLIC PANEL (CALCIUM TOTAL) (11/05/2022 11:24 AM CDT) BUN 8 7 - 26 mg/dL 11/05/2022 11:56 AM [facility] Creatinine 0.54(L) 0.56 - 0.96 mg/dL 11/05/2022 11:56 AM [facility] Sodium 139 136 - 145 mmol/L 11/05/2022 11:56 AM [facility] Potassium 3.8 3.5 - 4.5 mmol/L 11/05/2022 11:56 AM [facility] Chloride 104 98 - 107 mmol/L 11/05/2022 11:56 AM [facility] CO2 23 22 - 29 mmol/L 11/05/2022 11:56 AM [facility] Glucose 101 70 - 115 mg/dL 11/05/2022 11:56 AM [facility] Calcium 8.5 8.4 - 10.2 mg/dL 11/05/2022 11:56 AM [facility] Anion Gap 16 8 - 18 11/05/2022 11:56 AM [facility] BUN/Creatinine Ratio 15 7 - 23 11/05/2022 11:56 AM CDT [facility] Osmolality Calculated 286 270 - 300 mOsm/kg 11/05/2022 11:56 AM CDT [facility] eGFR by CKD-EPI >90 >=90 mL/min/1.7 3 m2 11/05/2022 11:56 AM CDT [facility] Blood BLOOD SPECIMEN / Unknown Venipuncture / Unknown 11/05/2022 11:24 AM CDT 11/05/2022 11:30 AM CDT Emir Vail MD LAB - CHEMISTRY ORDDanyelle BLACKMAN [facility] [address] [place] [address], [place] [phone] * PHOSPHORUS BLOOD (11/05/2022 11:24 AM CDT) Phosphorus 3.2 2.9 - 5.1 mg/dL 11/05/2022 11:56 AM CDT [facility] Blood BLOOD SPECIMEN / Unknown Venipuncture / Unknown 11/05/2022 11:24 AM CDT 11/05/2022 11:30 AM CDT Emir Vail MD LAB - CHEMISTRY BIBIANA BLACKMAN Performing Organization Address City/[facility]/ZIP Co de Phone Number [address] [address], [place] [phone] * MAGNESIUM BLOOD (11/05/2022 11:24 AM CDT) Magnesium 2.0 1.6 - 2.6 mg/dL 11/05/2022 11:56 AM CDT [facility] Blood BLOOD SPECIMEN / Unknown Venipuncture / Unknown 11/05/2022 11:24 AM CDT 11/05/2022 11:30 AM CDT Emir Vail MD LAB - CHEMISTRY BIBIANA BLACKMAN Performing Organization Address City/[facility]/ZIP Co de Phone Number [address] [address], [place] [phone] * BLOOD GAS ART+LYTES+METAB+COOX POC NOTIF (11/05/2022 11:16 AM CDT) Comment Notification Label Only - See Separate Report 11/05/2022 2:01 PM CDT [facility] Other MISCELLANEOUS SAMPLES / Unknown 11/05/2022 11:16 AM CDT 11/05/2022 12:52 PM CDT Manuel Ramirez MD LAB - BLOOD GASES ORDERABLES Performing Organization Address [facility]/ZIP Co de Phone Number [address] [address], [place] [phone] * (ABNORMAL) PTT [facility] (11/05/2022 11:15 AM CDT) APTT 48.8(H) 23.0 - 38.4 Seconds 11/05/2022 12:12 PM CDT [facility] Comment:Suggested therapeuti c range for full dose I.V. unfractionated heparin therapy for venous thromboembolism is 71 to 109 seconds. Blood BLOOD SPECIMEN / Unknown Lab Venipuncture / Unknown 11/05/2022 11:15 AM CDT 11/05/2022 11:23 AM CDT Jaime Drew MD LAB - COAGULATION OR DERABLES Performing Organization Address [facility]/ZIP Co de Phone Number [address] [address], [place] [phone] * CULTURE BLOOD (11/05/2022 10:54 AM CDT) Culture No growth day 5 ROSELIA 11/10/2022 2:[address] [facility] Blood PERIPHERAL BLOOD / Unknown Venipuncture / Unknown 11/05/2022 10:54 AM CDT 11/05/2022 11:23 AM CDT Jaime Drew MD LAB - MICROBIOLOGY O RDERABLES [facility] [address] [place], [place] [address], [facility] [phone] * XR CHEST 1VW PORTABLE (11/05/2022 9:37 AM CDT) Anatomical Region Laterality Modality Chest Radiographic Irene ging 11/05/2022 12:2 6 PM CDT Narrative 11/05/2022 2:40 PM CDT PROCEDURE: ??XR CHEST 1VW PORTABLE, DATE/TIME OF EXAM: ??11/05/2022 9:38 AM, LOCATION ??[facility] INDICATION: R50.9: Fever, unspecified fever cause ADDITIONAL CLINICAL INFORMATION: Ordering Provider Reason For Exam: ??consolidation COMPARISON: Chest radiograph 10/29/2022. FINDINGS/IMPRESSION: Previously seen feeding tube has been removed. These no confluent consolidation, pleural effusion, or pneumothorax is noted. The cardiomediastinal silhouette is stable. No acute osseous abnormality is noted. Report dictated by Christopher Tobin MD, MD (resident services coordinator). HEATHER Ornelas MD have personally reviewed and interpreted this examination/study. > Interpreting Provider: HEATHER FREGOSO MD on 11/05/2022 2:40 PM Procedure Note Heather Fregoso MD - 11/05/2022 PROCEDURE: XR CHEST 1VW PORTABLE, DATE/TIME OF EXAM: 11/05/2022 9:38AM, LOCATION [facility] INDICATION: R50.9: Fever, unspecified fever cause ADDITIONAL CLINICAL INFORMATION: Ordering Provider Reason For Exam: consolidation COMPARISON: Chest radiograph 10/29/2022. FINDINGS/IMPRESSION: Previously seen feeding tube has been removed. These no confluent consolidation, pleural effusion, or pneumothorax is noted. The cardiomediastinal silhouette is stable. No acute osseous abnormality is noted. Report dictated by Christopher Tobin MD, MD (resident services coordinator). HEATHER Ornelas MD have personally reviewed and interpreted this examination/study. > Interpreting Provider: HEATHER FREGOSO MD on 11/05/2022 2:40 PM Jaime Drew MD DIAGNOSTIC IMAGING O RDERABLES * (ABNORMAL) PTT [facility] (11/05/2022 3:50 AM CDT) APTT 77.4(H) 23.0 - 38.4 Seconds 11/05/2022 4:51 AM CDT [facility] Comment:Suggested therapeuti c range for full dose I.V. unfractionated heparin therapy for venous thromboembolism is 71 to 109 seconds. Blood BLOOD SPECIMEN / Unknown Lab Venipuncture / Unknown 11/05/2022 3:50 AM CDT 11/05/2022 4:35 AM CDT Jaime Drew MD LAB - COAGULATION OR DERABLES [address] [address], [facility] [phone] * (ABNORMAL) PT-INR [facility] (11/05/2022 3:50 AM CDT) PT 15.5(H) 12.1 - 14.8 Seconds 11/05/2022 4:51 AM CDT [facility] INR 1.3 See Comment 11/05/2022 4:51 AM CDT [facility] Comment:The suggested therap eutic range for standard coumadin (warfarin) therapy is an INR of 2.0-3.0. For high-risk patients (Mechanical Mitral Valve Prosthesis, etc.), the suggested prophylactic therapeutic range is an INR of 2.5-3.5. Blood BLOOD SPECIMEN / Unknown Lab Venipuncture / Unknown 11/05/2022 3:50 AM CDT 11/05/2022 4:35 AM CDT Emir Vail MD LAB - COAGULATION OR DERABLES [address] [address], [place] [phone] * CT HEAD WO CONTRAST (11/05/2022 12:11 AM CDT) Anatomical Region Laterality Modality Head Computed Tomogra phy 11/05/2022 5:36 PM CDT Impressions 11/05/2022 5:48 PM CDT IMPRESSION: 1. Redemonstration of post surgical changes from decompressive hemicraniectomy and evolving large right MCA territory subacute infarct. Interval increased linear hyperdense foci along the cortex of right frontal and parietal lobes could be secondary to evolving cortical laminar necrosis versus developing petechial hemorrhages. Continued attention recommended on short-term follow-up. However no hematoma noted. No evidence of midline shift. These findings were discussed with patient's care provider, Dr. Roth with neurology, by on 11/05/2022 5:46 PM with read back verification. > Interpreting Provider: Oriana Suarez MD on 11/05/2022 5:48 PM Narrative 11/05/2022 5:48 PM CDT PROCEDURE: ??CT HEAD WO CONTRAST DATE/TIME OF EXAM: ??11/05/2022 12:11 AM CLINICAL INFORMATION: None relevant/not provided if blank. 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 CT dose reduction technique was used, including Automated Exposure Control. FINDINGS: Redemonstration of postsurgical changes from decompressive right frontal parietotemporal craniectomy. 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 Unchanged evolving large right MCA territory infarction involving the right frontal parietal and temporal lobes. 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 No significant midline shift. Unchanged ex vacuo dilation of the right lateral ventricle. There is interval increase in cortical hyperdensity involving the right parietal, frontal lobes (image 11, 12, 14, series 3). Extra-axial fluid collection overlying the herniated right cerebral convexity measuring 1.5 cm in thickness, not significantly changed compared to prior study. No interval change in the scott-white matter differentiation. No significant opacification of the mastoid or paranasal sinuses. No acute soft tissue findings or calvarial findings. Procedure Note Oriana Suarez MD - 11/05/2022 PROCEDURE: CT HEAD WO CONTRAST DATE/TIME OF EXAM: 11/05/2022 12:11 AM CLINICAL INFORMATION: None relevant/not provided if blank. 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 CT dose reduction technique was used, including Automated ExposureControl. FINDINGS: Redemonstration of postsurgical changes from decompressive right frontal parietotemporal craniectomy. Unchanged herniation of the right frontoparietal and temporal lobes through the craniectomy defect.Unchanged evolving large right MCA territory infarction involving the rightfrontal parietal and temporal lobes. 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 Nosignificant midline shift. Unchanged ex vacuo dilation of the right lateralventricle. There is interval increase in cortical hyperdensity involving the right parietal, frontal lobes (image 11, 12, 14, series 3). Extra-axial fluid collection overlying the herniated right cerebral convexity measuring1.5 cm in thickness, not significantly changed compared to prior study. No interval change in the scott-white matter differentiation. Nosignificant opacification of the mastoid or paranasal sinuses. No acute soft tissue findings or calvarial findings. IMPRESSION: 1. Redemonstration of post surgical changes from decompressive hemicraniectomy and evolving large right MCA territory subacute infarct. Interval increased linear hyperdense foci along the cortex of rightfrontal and parietal lobes could be secondary to evolving cortical laminarnecrosis versus developing petechial hemorrhages. Continued attention recommendedon short-term follow-up. However no hematoma noted. No evidence of midline shift. These findings were discussed with patient's care provider, Dr. Gilmore neurology, by on 11/05/2022 5:46 PM with read back verification. > Interpreting Provider: Oriana Suarez MD on 11/05/2022 5:[address] MD [address] ORDERABLES * (ABNORMAL) PTT [facility] (11/04/2022 9:28 PM CDT) APTT 53.3(H) 23.0 - 38.4 Seconds 11/04/2022 9:50 PM CDT [facility] Comment:Suggested therapeuti c range for full dose I.V. unfractionated heparin therapy for venous thromboembolism is 71 to 109 seconds. Blood BLOOD SPECIMEN / Unknown Lab Venipuncture / Unknown 11/04/2022 9:28 PM CDT 11/04/2022 9:32 PM CDT Jim Walter MD LAB - COAGULATION O RDERABLES [facility] [address] [place] [address], [facility] [phone] * (ABNORMAL) BASIC METABOLIC PANEL (CALCIUM TOTAL) (11/04/2022 9:28 PM CDT) BUN 8 7 - 26 mg/dL 11/04/2022 9:57 PM [facility] Creatinine 0.55(L) 0.56 - 0.96 mg/dL 11/04/2022 9:57 PM [facility] Sodium 141 136 - 145 mmol/L 11/04/2022 9:57 PM [facility] Potassium 3.7 3.5 - 4.5 mmol/L 11/04/2022 9:57 PM [facility] Chloride 106 98 - 107 mmol/L 11/04/2022 9:57 PM [facility] CO2 25 22 - 29 mmol/L 11/04/2022 9:57 PM [facility] Glucose 106 70 - 115 mg/dL 11/04/2022 9:57 PM [facility] Calcium 8.3(L) 8.4 - 10.2 mg/dL 11/04/2022 9:57 PM [facility] Anion Gap 14 8 - 18 11/04/2022 9:57 PM [facility] BUN/Creatinine Ratio 15 7 - 23 11/04/2022 9:57 PM [facility] Osmolality Calculated 291 270 - 300 mOsm/kg 11/04/2022 9:57 PM [facility] eGFR by CKD-EPI >90 >=90 mL/min/1.7 3 m2 11/04/2022 9:57 PM [facility] Blood BLOOD SPECIMEN / Unknown Lab Venipuncture / Unknown 11/04/2022 9:28 PM CDT 11/04/2022 9:33 PM CDT Emir Vail MD LAB - CHEMISTRY BIBIANA BLACKMAN [facility] [address] [place] [address], [facility] [phone] * (ABNORMAL) CBC W AUTO DIFFERENTIAL (11/04/2022 9:28 PM CDT) WBC 8.4 3.5 - 10.5 10? 3 /uL 11/04/2022 9:36 PM CDT [facility] RBC 3.73(L) 3.80 - 5.20 10? 6 /uL 11/04/2022 9:36 PM T [facility] Hemoglobin 10.9(L) 12.0 - 15.6 g/dL 11/04/2022 9:36 PM [facility] Hematocrit 34.6(L) 35.0 - 45.0 % 11/04/2022 9:36 PM [facility] MCV 92.8 80.7 - 98.3 fL 11/04/2022 9:36 PM [facility] MCH 29.2 26.7 - 34.0 pg 11/04/2022 9:36 PM [facility] MCHC 31.5 30.8 - 35.9 g/dL 11/04/2022 9:36 PM [facility] RDW-SD 47.6 36.0 - 50.0 fL 11/04/2022 9:36 PM [facility] RDW-CV 14.0 11.2 - 14.8 % 11/04/2022 9:36 PM [facility] Platelet Count 383 150 - 400 10? 3 /uL 11/04/2022 9:36 PM [facility] MPV 9.9 9.4 - 12.9 fL 11/04/2022 9:36 PM [facility] nRBC Absolute 0.00 0 10? 3 /uL 11/04/2022 9:36 PM T [facility] nRBC Auto 0.0 0 /100 WBC 11/04/2022 9:36 PM CDT [facility] Neutrophils % 62.2 35.0 - 70.0 % 11/04/2022 9:36 PM CDT [facility] Lymphocytes % 22.7 20.0 - 43.0 % 11/04/2022 9:36 PM CDT [facility] Monocytes % 12.8 5.0 - 13.0 % 11/04/2022 9:36 PM CDT [facility] Eosinophils % 0.7 0.0 - 6.0 % 11/04/2022 9:36 PM CDT [facility] Basophil % 0.6 0.0 - 2.0 % 11/04/2022 9:36 PM CDT [facility] Neutrophils Absolute 5.22 1.60 - 7.00 10? 3 /uL 11/04/2022 9:36 PM CDT [facility] Lymphocyte Absolute 1.90 1.10 - 3.90 10? 3 /uL 11/04/2022 9:36 PM CDT [facility] Monocytes Absolute 1.07 0.26 - 1.07 10? 3 /uL 11/04/2022 9:36 PM CDT [facility] Eosinophils Absolute 0.06 0.00 - 0.47 10? 3 /uL 11/04/2022 9:36 PM CDT [facility] Basophils Absolute 0.05 0.00 - 0.08 10? 3 /uL 11/04/2022 9:36 PM CDT [facility] Immature Granulocytes % 1.0 0.0 - 1.0 % 11/04/2022 9:36 PM CDT [facility] Immature Granulocytes Absolute 0.08 11/04/2022 9:36 PM CDT [facility] Blood BLOOD SPECIMEN / Unknown Lab Venipuncture / Unknown 11/04/2022 9:28 PM CDT 11/04/2022 9:33 PM CDT Emir Vail MD LAB - HEMATOLOGY ORD ERABLES [facility] [address] [place] [address], [facility] [phone] * PHOSPHORUS BLOOD (11/04/2022 9:28 PM CDT) Phosphorus 3.4 2.9 - 5.1 mg/dL 11/04/2022 9:58 PM CDT [facility] Blood BLOOD SPECIMEN / Unknown Lab Venipuncture / Unknown 11/04/2022 9:28 PM CDT 11/04/2022 9:33 PM CDT Emir Vail MD LAB - CHEMISTRY BIBIANA BLACKMAN [address] [address], [place] [phone] * MAGNESIUM BLOOD (11/04/2022 9:28 PM CDT) [facility] Magnesium 2.3 1.6 - 2.6 mg/dL 11/04/2022 9:57 PM CDT [facility] Blood BLOOD SPECIMEN / Unknown Lab Venipuncture / Unknown 11/04/2022 9:28 PM CDT 11/04/2022 9:33 PM CDT Emir Vail MD LAB - CHEMISTRY BIBIANA BLACKMAN Performing Organization Address [facility]/ZIP Co de Phone Number [address] [address], [place] [phone] * (ABNORMAL) PTT [facility] (11/04/2022 4:17 PM CDT) [facility] APTT 131.0(HH) 23.0 - 38.4 Seconds 11/04/2022 4:47 PM CDT [facility] Comment:Suggested therapeuti c range for full dose I.V. unfractionated heparin therapy for venous thromboembolism is 71 to 109 seconds. Blood BLOOD SPECIMEN / Unknown Lab Venipuncture / Unknown 11/04/2022 4:17 PM CDT 11/04/2022 4:22 PM CDT Jim Walter MD LAB - COAGULATION O RDERABLES [address] [address], [place] [phone] * (ABNORMAL) PTT [facility] (11/04/2022 9:31 AM CDT) APTT 53.0(H) 23.0 - 38.4 Seconds 11/04/2022 10:55 AM CDT [facility] Comment:Suggested therapeuti c range for full dose I.V. unfractionated heparin therapy for venous thromboembolism is 71 to 109 seconds. Blood BLOOD SPECIMEN / Unknown Lab Venipuncture / Unknown 11/04/2022 9:31 AM CDT 11/04/2022 10:39 AM CDT Jim Walter MD LAB - COAGULATION O RDERABLES [facility] [address] [place] [address], [facility] [phone] * VANCOMYCIN LEVEL TROUGH (11/04/2022 9:31 AM CDT) Pathologist [facility] Vancomycin Trough 15.3 10.0 - 20.0 ug/mL 11/04/2022 11:04 AM CDT [facility] Blood BLOOD SPECIMEN / Unknown Lab Venipuncture / Unknown 11/04/2022 9:31 AM CDT 11/04/2022 10:39 AM CDT Narrative [facility] - 11/04/2022 11:04 AM CDT See institution protocol. Jim Walter MD LAB - CHEMISTRY ORD ERABLES Performing Organization Address City/[facility]/ZIP Co de Phone Number [facility] [address] [place] [address], [facility] [phone] * PT-INR [facility] (11/04/2022 5:53 AM CDT) Pathologist [facility] PT 14.5 12.1 - 14.8 Seconds 11/04/2022 6:15 AM CDT [facility] INR 1.1 See Comment 11/04/2022 6:15 AM CDT [facility] Comment:The suggested therap eutic range for standard coumadin (warfarin) therapy is an INR of 2.0-3.0. For high-risk patients (Mechanical Mitral Valve Prosthesis, etc.), the suggested prophylactic therapeutic range is an INR of 2.5-3.5. Blood BLOOD SPECIMEN / Unknown Lab Venipuncture / Unknown 11/04/2022 5:53 AM CDT 11/04/2022 5:59 AM CDT Jim Walter MD LAB - COAGULATION O RDERABLES Performing Organization Address [facility]/ZIP Co de Phone Number [address] [address], [facility] [phone] * PHOSPHORUS BLOOD (11/04/2022 5:53 AM CDT) Phosphorus 3.8 2.9 - 5.1 mg/dL 11/04/2022 6:34 AM CDT [facility] Blood BLOOD SPECIMEN / Unknown Lab Venipuncture / Unknown 11/04/2022 5:53 AM CDT 11/04/2022 6:05 AM CDT Jim Walter MD LAB - CHEMISTRY ORD ERABLES Performing Organization Address [facility] Co de Phone Number [address] [address], [facility] [phone] * MAGNESIUM BLOOD (11/04/2022 5:53 AM CDT) Pathologist [facility] Magnesium 2.0 1.6 - 2.6 mg/dL 11/04/2022 6:34 AM CDT [facility] Blood BLOOD SPECIMEN / Unknown Lab Venipuncture / Unknown 11/04/2022 5:53 AM CDT 11/04/2022 6:05 AM CDT Jim Walter MD LAB - CHEMISTRY ORD ERABLES Performing Organization Address [facility] Co de Phone Number [address] [address], [facility] [phone] * (ABNORMAL) BASIC METABOLIC PANEL (CALCIUM TOTAL) (11/04/2022 5:53 AM CDT) BUN 9 7 - 26 mg/dL 11/04/2022 6:34 AM [facility] Creatinine 0.56 0.56 - 0.96 mg/dL 11/04/2022 6:34 AM [facility] Sodium 139 136 - 145 mmol/L 11/04/2022 6:34 AM [facility] Potassium 3.6 3.5 - 4.5 mmol/L 11/04/2022 6:34 AM [facility] Chloride 104 98 - 107 mmol/L 11/04/2022 6:34 AM [facility] CO2 25 22 - 29 mmol/L 11/04/2022 6:34 AM [facility] Glucose 133(H) 70 - 115 mg/dL 11/04/2022 6:34 AM [facility] Calcium 8.6 8.4 - 10.2 mg/dL 11/04/2022 6:34 AM [facility] Anion Gap 14 8 - 18 11/04/2022 6:34 AM [facility] BUN/Creatinine Ratio 16 7 - 23 11/04/2022 6:34 AM [facility] Osmolality Calculated 289 270 - 300 mOsm/kg 11/04/2022 6:34 AM [facility] eGFR by CKD-EPI >90 >=90 mL/min/1.7 3 m2 11/04/2022 6:34 AM [facility] Blood BLOOD SPECIMEN / Unknown Lab Venipuncture / Unknown 11/04/2022 5:53 AM CDT 11/04/2022 6:05 AM T Jim Walter MD LAB - CHEMISTRY ORD ERABLES [facility] [address] [place] [address], [facility] [phone] * (ABNORMAL) PTT [facility] (11/04/2022 5:53 AM CDT) APTT 96.7(H) 23.0 - 38.4 Seconds 11/04/2022 6:15 AM [facility] Comment:Suggested therapeuti c range for full dose I.V. unfractionated heparin therapy for venous thromboembolism is 71 to 109 seconds. Blood BLOOD SPECIMEN / Unknown Lab Venipuncture / Unknown 11/04/2022 5:53 AM CDT 11/04/2022 5:59 AM CDT Jim Walter MD LAB - COAGULATION O RDERABLES Performing Organization Address [facility]/ZIP Co de Phone Number [address] [address], [facility] [phone] * PT-INR [facility] (11/03/2022 11:53 PM CDT) PT 14.2 12.1 - 14.8 Seconds 11/04/2022 12:45 AM CDT [facility] INR 1.1 See Comment 11/04/2022 12:45 AM CDT [facility] Comment:The suggested therap eutic range for standard coumadin (warfarin) therapy is an INR of 2.0-3.0. For high-risk patients (Mechanical Mitral Valve Prosthesis, etc.), the suggested prophylactic therapeutic range is an INR of 2.5-3.5. Blood BLOOD SPECIMEN / Unknown Venipuncture / Unknown 11/03/2022 11:53 PM CDT 11/04/2022 12:00 AM CDT Emir Vail MD LAB - COAGULATION OR DERABLES Performing Organization Address [facility]/ZIP Co de Phone Number [address] [address], [facility] [phone] * (ABNORMAL) PTT [facility] (11/03/2022 11:53 PM CDT) APTT 77.9(H) 23.0 - 38.4 Seconds 11/04/2022 12:45 AM CDT [facility] Comment:Suggested therapeuti c range for full dose I.V. unfractionated heparin therapy for venous thromboembolism is 71 to 109 seconds. Blood BLOOD SPECIMEN / Unknown Venipuncture / Unknown 11/03/2022 11:53 PM CDT 11/04/2022 12:00 AM CDT Jim Walter MD LAB - COAGULATION O DIONI Performing Organization Address [facility]/ZIP Co de Phone Number [address] [address], [place] [phone] * (ABNORMAL) PTT [facility] (11/03/2022 4:26 PM CDT) APTT 58.8(H) 23.0 - 38.4 Seconds 11/03/2022 5:58 PM CDT [facility] Comment:Suggested therapeuti c range for full dose I.V. unfractionated heparin therapy for venous thromboembolism is 71 to 109 seconds. Blood BLOOD SPECIMEN / Unknown Lab Venipuncture / Unknown 11/03/2022 4:26 PM CDT 11/03/2022 5:37 PM CDT Jim Walter MD LAB - COAGULATION Umm WHEATLEY Performing Organization Address [facility] Co de Phone Number [address] [address], [place] [phone] * (ABNORMAL) PTT [facility] (11/03/2022 10:48 AM CDT) APTT 84.5(H) 23.0 - 38.4 Seconds 11/03/2022 11:33 AM CDT [facility] Comment:Suggested therapeuti c range for full dose I.V. unfractionated heparin therapy for venous thromboembolism is 71 to 109 seconds. Blood BLOOD SPECIMEN / Unknown Lab Venipuncture / Unknown 11/03/2022 10:48 AM CDT 11/03/2022 10:55 AM CDT Jim Walter MD LAB - COAGULATION O DIONI Performing Organization Address [facility]/ZIP Co de Phone Number [address] [address], [place] [phone] * (ABNORMAL) GLUCOSE - POINT OF CARE (11/03/2022 5:20 AM CDT) Glucose WB/POC 126(H) 70 - 115 mg/dL 11/03/2022 4:58 PM CDT [facility] Specimen Type Cap Fingerstick 2022 4:58 PM CDT [facility] Blood BLOOD SPECIMEN / Unknown 11/03/2022 5:20 AM CDT 11/03/2022 4:58 PM CDT Jim Walter MD LAB - POINT OF CARE ORDERABLES Performing Organization Address [facility]/ZIP Co de Phone Number [address] [address], [facility] [phone] * (ABNORMAL) PTT [facility] (11/03/2022 4:49 AM CDT) Pathologist [facility] APTT 89.3(H) 23.0 - 38.4 Seconds 11/03/2022 5:35 AM CDT [facility] Comment:Suggested therapeuti c range for full dose I.V. unfractionated heparin therapy for venous thromboembolism is 71 to 109 seconds. Blood BLOOD SPECIMEN / Unknown Venipuncture / Unknown 11/03/2022 4:49 AM CDT 11/03/2022 5:04 AM CDT Jim Walter MD LAB - COAGULATION O RDERABLES Performing Organization Address [facility] Co de Phone Number [address] [address], [facility] [phone] * (ABNORMAL) PT-INR [facility] (11/03/2022 4:49 AM CDT) PT 15.1(H) 12.1 - 14.8 Seconds 11/03/2022 5:35 AM CDT [facility] INR 1.2 See Comment 11/03/2022 5:35 AM CDT [facility] Comment:The suggested therap eutic range for standard coumadin (warfarin) therapy is an INR of 2.0-3.0. For high-risk patients (Mechanical Mitral Valve Prosthesis, etc.), the suggested prophylactic therapeutic range is an INR of 2.5-3.5. Blood BLOOD SPECIMEN / Unknown Venipuncture / Unknown 11/03/2022 4:49 AM CDT 11/03/2022 5:05 AM CDT Emir Vail MD LAB - COAGULATION OR DERABLES [facility] [address] [place] [address], [facility] [phone] * (ABNORMAL) BASIC METABOLIC PANEL (CALCIUM TOTAL) (11/02/2022 10:21 PM CDT) BUN 11 7 - 26 mg/dL 11/02/2022 11:04 PM [facility] Creatinine 0.55(L) 0.56 - 0.96 mg/dL 11/02/2022 11:04 PM [facility] Sodium 138 136 - 145 mmol/L 11/02/2022 11:04 PM [facility] Potassium 3.9 3.5 - 4.5 mmol/L 11/02/2022 11:04 PM [facility] Chloride 103 98 - 107 mmol/L 11/02/2022 11:04 PM [facility] CO2 23 22 - 29 mmol/L 11/02/2022 11:04 PM [facility] Glucose 101 70 - 115 mg/dL 11/02/2022 11:04 PM [facility] Calcium 8.9 8.4 - 10.2 mg/dL 11/02/2022 11:04 PM [facility] Anion Gap 16 8 - 18 11/02/2022 11:04 PM [facility] BUN/Creatinine Ratio 20 7 - 23 11/02/2022 11:04 PM [facility] Osmolality Calculated 286 270 - 300 mOsm/kg 11/02/2022 11:04 PM [facility] eGFR by CKD-EPI >90 >=90 mL/min/1.7 3 m2 11/02/2022 11:04 PM [facility] Blood BLOOD SPECIMEN / Unknown Venipuncture / Unknown 11/02/2022 10:21 PM CDT 11/02/2022 10:37 PM CDT Emir Vail MD LAB - CHEMISTRY BIBIANA BLACKMAN [facility] Organization Address City/State/ZIP Co de Phone Number [facility] [address] [place] [address] [phone] * (ABNORMAL) CBC W AUTO DIFFERENTIAL (11/02/2022 10:21 PM CDT) WBC 13.3(H) 3.5 - 10.5 10? 3 /uL 11/02/2022 10:59 PM CDT [facility] RBC 3.44(L) 3.80 - 5.20 10? 6 /uL 11/02/2022 10:59 PM CDT [facility] Hemoglobin 10.3(L) 12.0 - 15.6 g/dL 11/02/2022 10:59 PM T [facility] Hematocrit 32.0(L) 35.0 - 45.0 % 11/02/2022 10:59 PM CDT [facility] MCV 93.0 80.7 - 98.3 fL 11/02/2022 10:59 PM CDT [facility] MCH 29.9 26.7 - 34.0 pg 11/02/2022 10:59 PM CDT [facility] MCHC 32.2 30.8 - 35.9 g/dL 11/02/2022 10:59 PM CDT [facility] RDW-SD 48.5 36.0 - 50.0 fL 11/02/2022 10:59 PM T [facility] RDW-CV 14.4 11.2 - 14.8 % 11/02/2022 10:59 PM CDT [facility] Platelet Count 405(H) 150 - 400 10? 3 /uL 11/02/2022 10:59 PM CDT [facility] MPV 10.4 9.4 - 12.9 fL 11/02/2022 10:59 PM CDT [facility] nRBC Absolute 0.00 0 10? 3 /uL 11/02/2022 10:59 PM CDT [facility] nRBC Auto 0.0 0 /100 WBC 11/02/2022 10:59 PM CDT [facility] Neutrophils % 69.8 35.0 - 70.0 % 11/02/2022 10:59 PM CDT [facility] Lymphocytes % 17.3(L) 20.0 - 43.0 % 11/02/2022 10:59 PM CDT [facility] Monocytes % 8.0 5.0 - 13.0 % 11/02/2022 10:59 PM CDT [facility] Eosinophils % 3.4 0.0 - 6.0 % 11/02/2022 10:59 PM CDT [facility] Basophil % 0.5 0.0 - 2.0 % 11/02/2022 10:59 PM CDT [facility] Neutrophils Absolute 9.29(H) 1.60 - 7.00 10? 3 /uL 11/02/2022 10:59 PM CDT [facility] Lymphocyte Absolute 2.30 1.10 - 3.90 10? 3 /uL 11/02/2022 10:59 PM CDT [facility] Monocytes Absolute 1.07 0.26 - 1.07 10? 3 /uL 11/02/2022 10:59 PM CDT [facility] Eosinophils Absolute 0.45 0.00 - 0.47 10? 3 /uL 11/02/2022 10:59 PM CDT [facility] Basophils Absolute 0.06 0.00 - 0.08 10? 3 /uL 11/02/2022 10:59 PM CDT [facility] Immature Granulocytes % 1.0 0.0 - 1.0 % 11/02/2022 10:59 PM CDT [facility] Immature Granulocytes Absolute 0.13 11/02/2022 10:59 PM T [facility] Blood BLOOD SPECIMEN / Unknown Venipuncture / Unknown 11/02/2022 10:21 PM CDT 11/02/2022 10:36 PM CDT Emir Vail MD LAB - HEMATOLOGY ORD ERABLES [facility] [address] [place] [address], [facility] [phone] * PHOSPHORUS BLOOD (11/02/2022 10:21 PM CDT) Phosphorus 4.2 2.9 - 5.1 mg/dL 11/02/2022 11:04 PM CDT [facility] Blood BLOOD SPECIMEN / Unknown Venipuncture / Unknown 11/02/2022 10:21 PM CDT 11/02/2022 10:37 PM CDT Emir Vail MD LAB - CHEMISTRY BIBIANA BLACKMAN [address] [address], [facility] [phone] * MAGNESIUM BLOOD (11/02/2022 10:21 PM CDT) Pathologist [facility] [place] Magnesium 1.9 1.6 - 2.6 mg/dL 11/02/2022 11:04 PM CDT [facility] Blood BLOOD SPECIMEN / Unknown Venipuncture / Unknown 11/02/2022 10:21 PM CDT 11/02/2022 10:37 PM CDT Emir Vail MD LAB - CHEMISTRY BIBIANA BLACKMAN Performing Organization Address [facility]/ZIP Co de Phone Number [address] [address], [place] [phone] * (ABNORMAL) PTT [facility] (11/02/2022 10:21 PM CDT) [facility] APTT 58.3(H) 23.0 - 38.4 Seconds 11/02/2022 11:01 PM CDT [facility] Comment:Suggested therapeuti c range for full dose I.V. unfractionated heparin therapy for venous thromboembolism is 71 to 109 seconds. Blood BLOOD SPECIMEN / Unknown Venipuncture / Unknown 11/02/2022 10:21 PM CDT 11/02/2022 10:36 PM CDT Jim Walter MD LAB - COAGULATION O RDERABLES [address] [address], [place] [phone] * (ABNORMAL) PTT [facility] (11/02/2022 4:37 PM CDT) APTT 69.8(H) 23.0 - 38.4 Seconds 11/02/2022 5:19 PM CDT [facility] Comment:Suggested therapeuti c range for full dose I.V. unfractionated heparin therapy for venous thromboembolism is 71 to 109 seconds. Blood BLOOD SPECIMEN / Unknown Lab Venipuncture / Unknown 11/02/2022 4:37 PM CDT 11/02/2022 4:52 PM CDT Jim Walter MD LAB - COAGULATION O DIONI Performing Organization Address [facility] Co de Phone Number [address] [address], [facility] [phone] * (ABNORMAL) PTT [facility] (11/02/2022 11:12 AM CDT) APTT 54.9(H) 23.0 - 38.4 Seconds 11/02/2022 11:57 AM CDT [facility] Comment:Suggested therapeuti c range for full dose I.V. unfractionated heparin therapy for venous thromboembolism is 71 to 109 seconds. Blood BLOOD SPECIMEN / Unknown Lab Venipuncture / Unknown 11/02/2022 11:12 AM CDT 11/02/2022 11:32 AM CDT Jim Walter MD LAB - COAGULATION Umm WHEATLEY Performing Organization Address City/[facility]/ZIP Co de Phone Number [address] [address], [place] [phone] * VANCOMYCIN LEVEL TROUGH (11/02/2022 9:17 AM CDT) Vancomycin Trough 13.2 10.0 - 20.0 ug/mL 11/02/2022 10:35 AM CDT [facility] Blood BLOOD SPECIMEN / Unknown Venipuncture / Unknown 11/02/2022 9:17 AM CDT 11/02/2022 9:20 AM CDT Narrative [facility] - 11/02/2022 10:35 AM CDT See institution protocol. Dary Garvey MD LAB - CHEMISTRY BIBIANA BLACKMAN Performing Organization Address [facility]/ZIP Co de Phone Number [address] [address], [place] [phone] * (ABNORMAL) PTT [facility] (11/02/2022 4:45 AM CDT) Pathologist [facility] [place] APTT 52.5(H) 23.0 - 38.4 Seconds 11/02/2022 5:20 AM CDT [facility] Comment:Suggested therapeuti c range for full dose I.V. unfractionated heparin therapy for venous thromboembolism is 71 to 109 seconds. Blood BLOOD SPECIMEN / Unknown Venipuncture / Unknown 11/02/2022 4:45 AM CDT 11/02/2022 4:59 AM CDT Jim Walter MD LAB - COAGULATION O RDERABLES Performing Organization Address [facility] Co de Phone Number [address] [address], [place] [phone] * HEPATITIS C AB SCREEN RFLX NAAT QUANT (11/02/2022 4:45 AM CDT) [facility] Hepatitis C Antibody Non-react tiffany Non-reac tive 11/02/2022 5:56 AM CDT [facility] Comment:Hepatitis C Antibody screen indicates no serologic [...] CDT Jim Walter MD LAB - CHEMISTRY ANKUR COCHRAN Performing Organization Address City/[facility]/ZIP Co de Phone Number [address] [address], [place] [phone] * (ABNORMAL) HEPATITIS B PANEL (11/02/2022 4:45 AM CDT) Pathologist [facility] [place] Hepatitis B Virus Surface Antibody Reactive(A ) Non-react tiffany 11/02/2022 5:55 AM CDT [facility] Comment: > 12 mIU/mL Hepatitis B surface Antibody (HBsAb). Reactive for HBsAb - individual is considered immune to Hepatitis B Virus infection. Hepatitis B Virus Surface Antigen Non-reacti ve Non-react tiffany 11/02/2022 5:55 AM CDT [facility] Hepatitis B Core Virus Antibody IgM Non-reacti ve Non-react tiffany 11/02/2022 5:55 AM CDT [facility] Blood BLOOD SPECIMEN / Unknown Venipuncture / Unknown 11/02/2022 4:45 AM CDT 11/02/2022 4:56 AM CDT Jim Walter MD LAB - CHEMISTRY ORD ERABLES [address] [address], [facility] [phone] * EXPOSURE HIV (11/02/2022 4:45 AM CDT) Pathologist [facility] [place] HIV Antigen/Antibo dy 1 & 2 Non-reacti ve Non-reacti ve 11/02/2022 5:56 AM CDT [facility] Blood BLOOD SPECIMEN / Unknown Venipuncture / Unknown 11/02/2022 4:45 AM CDT 11/02/2022 4:56 AM CDT Jim Walter MD LAB - CHEMISTRY ORD ERABLES [address] [address], [facility] [phone] * (ABNORMAL) PTT [facility] (11/02/2022 1:32 AM CDT) Pathologist [facility] [place] APTT 48.3(H) 23.0 - 38.4 Seconds 11/02/2022 2:53 AM CDT [facility] Comment:Suggested therapeuti c range for full dose I.V. unfractionated heparin therapy for venous thromboembolism is 71 to 109 seconds. Blood BLOOD SPECIMEN / Unknown Lab Venipuncture / Unknown 11/02/2022 1:32 AM CDT 11/02/2022 2:14 AM CDT Jim Walter MD LAB - COAGULATION O RDERABLES Performing Organization Address [facility] Co de Phone Number [facility] [address] [place] [address], [facility] [phone] * (ABNORMAL) PT-INR [facility] (11/02/2022 1:32 AM CDT) PT 15.1(H) 12.1 - 14.8 Seconds 11/02/2022 2:53 AM CDT [facility] INR 1.2 See Comment 11/02/2022 2:53 AM T [facility] Comment:The suggested therap eutic range for standard coumadin (warfarin) therapy is an INR of 2.0-3.0. For high-risk patients (Mechanical Mitral Valve Prosthesis, etc.), the suggested prophylactic therapeutic range is an INR of 2.5-3.5. Blood BLOOD SPECIMEN / Unknown Lab Venipuncture / Unknown 11/02/2022 1:32 AM CDT 11/02/2022 2:14 AM CDT Emir Vail MD LAB - COAGULATION OR DERABLES Performing Organization Address City/[facility]/ZIP Co de Phone Number [facility] [address] [place] [address], [place] [phone] * (ABNORMAL) BASIC METABOLIC PANEL (CALCIUM TOTAL) (11/02/2022 1:32 AM CDT) BUN 10 7 - 26 mg/dL 11/02/2022 2:44 AM CDT [facility] Creatinine 0.48(L) 0.56 - 0.96 mg/dL 11/02/2022 2:44 AM CDT [facility] Sodium 138 136 - 145 mmol/L 11/02/2022 2:44 AM [facility] Potassium 4.1 3.5 - 4.5 mmol/L 11/02/2022 2:44 AM [facility] Chloride 108(H) 98 - 107 mmol/L 11/02/2022 2:44 AM [facility] CO2 22 22 - 29 mmol/L 11/02/2022 2:44 AM [facility] Glucose 96 70 - 115 mg/dL 11/02/2022 2:44 AM [facility] Calcium 8.6 8.4 - 10.2 mg/dL 11/02/2022 2:44 AM [facility] Anion Gap 12 8 - 18 11/02/2022 2:44 AM [facility] BUN/Creatinine Ratio 21 7 - 11/02/2022 2:44 AM [facility] Osmolality Calculated 285 270 - 300 mOsm/kg 11/02/2022 2:44 AM [facility] eGFR by CKD-EPI >90 >=90 mL/min/1.7 3 m2 11/02/2022 2:44 AM [facility] Blood BLOOD SPECIMEN / Unknown Lab Venipuncture / Unknown 11/02/2022 1:32 AM CDT 11/02/2022 2:16 AM CDT Emir Vail MD LAB - CHEMISTRY ORDE [facility] Organization Address City/State/ZIP Co de Phone Number [facility] [address] [place] [address], [facility] [phone] * (ABNORMAL) CBC W AUTO DIFFERENTIAL (11/02/2022 1:32 AM CDT) WBC 19.3(H) 3.5 - 10.5 10? 3 /uL 11/02/2022 2:22 AM [facility] RBC 3.32(L) 3.80 - 5.20 10? 6 /uL 11/02/2022 2:22 AM [facility] Hemoglobin 10.0(L) 12.0 - 15.6 g/dL 11/02/2022 2:22 AM [facility] Hematocrit 31.1(L) 35.0 - 45.0 % 11/02/2022 2:22 AM [facility] MCV 93.7 80.7 - 98.3 fL 11/02/2022 2:22 AM [facility] MCH 30.1 26.7 - 34.0 pg 11/02/2022 2:22 AM [facility] MCHC 32.2 30.8 - 35.9 g/dL 11/02/2022 2:22 AM [facility] RDW-SD 49.4 36.0 - 50.0 fL 11/02/2022 2:22 AM [facility] RDW-CV 14.7 11.2 - 14.8 % 11/02/2022 2:22 AM [facility] Platelet Count 400 150 - 400 10? 3 /uL 11/02/2022 2:22 AM [facility] MPV 10.1 9.4 - 12.9 fL 11/02/2022 2:22 AM [facility] nRBC Absolute 0.02(H) 0 10? 3 /uL 11/02/2022 2:22 AM [facility] nRBC Auto 0.1(H) 0 /100 WBC 11/02/2022 2:22 AM [facility] Neutrophils % 76.4(H) 35.0 - 70.0 % 11/02/2022 2:22 AM [facility] Lymphocytes % 13.4(L) 20.0 - 43.0 % 11/02/2022 2:22 AM [facility] Monocytes % 7.3 5.0 - 13.0 % 11/02/2022 2:22 AM [facility] Eosinophils % 1.4 0.0 - 6.0 % 11/02/2022 2:22 AM [facility] Basophil % 0.3 0.0 - 2.0 % 11/02/2022 2:22 AM [facility] Neutrophils Absolute 14.73(H) 1.60 - 7.00 10? 3 /uL 11/02/2022 2:22 AM [facility] Lymphocyte Absolute 2.59 1.10 - 3.90 10? 3 /uL 11/02/2022 2:22 AM CDT [facility] Monocytes Absolute 1.40(H) 0.26 - 1.07 10? 3 /uL 11/02/2022 2:22 AM CDT [facility] Eosinophils Absolute 0.27 0.00 - 0.47 10? 3 /uL 11/02/2022 2:22 AM CDT [facility] Basophils Absolute 0.06 0.00 - 0.08 10? 3 /uL 11/02/2022 2:22 AM CDT [facility] Immature Granulocytes % 1.2(H) 0.0 - 1.0 % 11/02/2022 2:22 AM CDT [facility] Immature Granulocytes Absolute 0.23 11/02/2022 2:22 AM CDT [facility] Blood BLOOD SPECIMEN / Unknown Lab Venipuncture / Unknown 11/02/2022 1:32 AM CDT 11/02/2022 2:17 AM CDT Emir Vail MD LAB - HEMATOLOGY ORD ERABLES [address] [address], [facility] [phone] * PHOSPHORUS BLOOD (11/02/2022 1:32 AM CDT) Phosphorus 4.5 2.9 - 5.1 mg/dL 11/02/2022 2:44 AM CDT [facility] Blood BLOOD SPECIMEN / Unknown Lab Venipuncture / Unknown 11/02/2022 1:32 AM CDT 11/02/2022 2:16 AM CDT Emir Vail MD LAB - CHEMISTRY ORDE RABKAREN [address] [address], [facility] [phone] * MAGNESIUM BLOOD (11/02/2022 1:32 AM CDT) Magnesium 2.0 1.6 - 2.6 mg/dL 11/02/2022 2:44 AM CDT [facility] Blood BLOOD SPECIMEN / Unknown Lab Venipuncture / Unknown 11/02/2022 1:32 AM CDT 11/02/2022 2:16 AM CDT Emir Vail MD LAB - CHEMISTRY BIBIANA BLACKMAN [facility] [address] [place] [address], [facility] [phone] * PREPARE (CROSSMATCH) RBC UNIT(S), 3 Units (11/02/2022 1:17 AM CDT) Unit Description N/A [facility] BLOOD BANK LAB Blood Bank BLOOD SPECIMEN / Unknown 10/29/2022 11:32 AM CDT Valdez Clay MD LAB - BLOOD BANK O RDERABLES [facility] BLOOD [facility]ANK LAB [address] [place] [address], [facility] [phone] * PREPARE (CROSSMATCH) RBC UNIT(S), 2 Units (11/02/2022 1:17 AM CDT) Unit Description AS1 LR PRBC [facility] BLOOD BANK LAB Unit ABO B [facility] BLOOD BANK LAB Unit Rh POS [facility] BLOOD BANK LAB Product Number R02 [facility] B LOOD BANK LAB Unit Donor # [id number] [facility] BLOOD BANK LAB Unit Status released [facility] BLOO D BANK LAB Product Code [id number] [facility] BLO OD BANK LAB Blood Type Barcode 7300 [facility] BLOOD BANK LAB Expiration Date S BLOOD BANK LAB Unit Description AS1 LR PRBC [facility] BLOOD BANK LAB Unit ABO B [facility] BLOOD [facility]ANK LAB Unit Rh POS [facility] BLOOD BANK LAB Product Number R02 [facility] B LOOD BANK LAB Unit Donor # [id number] [facility] BLOOD BANK LAB Unit Status transfused [facility] BLO OD BANK LAB Product Code [id number] [facility] BLO OD BANK LAB Blood Type Barcode 7300 [facility] BLOOD BANK LAB Expiration Date S BLOOD BANK LAB Blood Bank BLOOD SPECIMEN / Unknown 10/29/2022 11:32 AM CDT Jim Walter MD LAB - BLOOD BANK OR DERABLES [facility] B[facility] [address] [place] [address], [facility] [phone] * PREPARE (CROSSMATCH) RBC UNIT(S), 2 Units (11/02/2022 1:17 AM CDT) Unit Description N/A [facility] BLOOD BANK LAB Blood Bank BLOOD SPECIMEN / Unknown 10/29/2022 11:32 AM CDT Jim Walter MD LAB - BLOOD BANK OR DERABLES Performing Organization Address City/[facility] Co de Phone Number [facility] BLOOD [facility] [address] [place] [address], [facility] [phone] * CT ABDOMEN WO CONTRAST (2022 6:47 PM CDT) Anatomical Region Laterality Modality Abdomen Computed Tomogra phy 2022 7:20 PM CDT Impressions 11/02/2022 1:18 AM CDT Impression: Interval placement of a percutaneous gastrostomy tube with intraluminal placement of tip and inflated balloon within the body/antrum of the stomach without complication, as clinically queried.. > Dictated by Tim Major MD (resident services coordinator). I, Pepe Gonzalez MD have personally reviewed and interpreted this examination/study. 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 > Dictated by Tim Major MD (resident services coordinator). I, Pepe Gonzalze MD have personally reviewed and interpreted this [...] ?Khanh Metz MD, Jerod Calderon (Fellow) Referring MD: ? Procedure: ?Upper GI endoscopy Indications: ?Oropharyngeal [...] insertion. The externally removable 24 Fr ? [employer] gastrostomy tube was lubricated. The G-tube was [...] Procedure Code(s): ? --- Professional --- ? 49500, Esophagogastroduoden oscopy, flexible, transoral; with directed ? placement of percutaneous gastrostomy tube Diagnosis Code(s): ?--- Professional --- ?K44.9, Diaphragmatic hernia without obstruction or ?gangrene ?K29.60, Other gastritis without bleeding ?R13.12, Dysphagia, oropharyngeal phase ?R29.818, Other symptoms and signs involving the ?nervous system ?Z43.1, Encounter for attention to gastrostomy CPT copyright 2021 [employer] Association. All rights reserved. The codes documented in this report are preliminary and upon mold technician review may be revised to meet current compliance requirements. Khanh Metz MD 2022 3:26:58 PM Note Initiated On: 2022 2:14 PM Number of Addenda: 0 ? [facility] ? [address] [place] [address] [facility] PROVATION 2022 2:14 PM CDT Khanh Metz MD GI PROCEDURE ORDERAB LES Performing Organization Address [facility] Co de Phone Number [facility] [employer]OVATION * (ABNORMAL) PTT [facility] (2022 8:48 AM CDT) APTT 43.6(H) 23.0 - 38.4 Seconds 2022 9:20 AM CDT [facility] Comment:Suggested therapeuti c range for full dose I.V. unfractionated heparin therapy for venous thromboembolism is 71 to 109 seconds. Blood BLOOD SPECIMEN / Unknown Venipuncture / Unknown 2022 8:48 AM CDT 2022 8:56 AM CDT Jim Walter MD LAB - COAGULATION O RDERABLES Performing Organization Address [facility]/ZIP Co de Phone Number [facility] [address] [place] [address], [place] [phone] * PT-INR [facility] (2022 2:40 AM CDT) PT 14.3 12.1 - 14.8 Seconds 2022 3:16 AM CDT [facility] INR 1.1 See Comment 2022 3:16 AM CDT [facility] Comment:The suggested therap eutic range for standard coumadin (warfarin) therapy is an INR of 2.0-3.0. For high-risk patients (Mechanical Mitral Valve Prosthesis, etc.), the suggested prophylactic therapeutic range is an INR of 2.5-3.5. Blood BLOOD SPECIMEN / Unknown Venipuncture / Unknown 2022 2:40 AM CDT 2022 2:47 AM CDT Emir Vail MD LAB - COAGULATION OR DERABLES Performing Organization Address [facility]/ZIP Co de Phone Number [address] [address], [facility] [phone] * (ABNORMAL) PTT [facility] (2022 2:40 AM CDT) APTT 67.7(H) 23.0 - 38.4 Seconds 2022 3:16 AM CDT [facility] Comment:Suggested therapeuti c range for full dose I.V. unfractionated heparin therapy for venous thromboembolism is 71 to 109 seconds. Blood BLOOD SPECIMEN / Unknown Venipuncture / Unknown 2022 2:40 AM CDT 2022 2:47 AM CDT Good Antunez MD LAB - COAGULATION OR DERABLES Performing Organization Address City/[facility]/ZIP Co de Phone Number [address] [address], [facility] [phone] * (ABNORMAL) PTT [facility] (2022 12:03 AM CDT) APTT 71.4(H) 23.0 - 38.4 Seconds 2022 12:45 AM CDT [facility] Comment:Suggested therapeuti c range for full dose I.V. unfractionated heparin therapy for venous thromboembolism is 71 to 109 seconds. Blood BLOOD SPECIMEN / Unknown Venipuncture / Unknown 2022 12:03 AM CDT 2022 12:18 AM CDT Jim Walter MD LAB - COAGULATION O RDERABLES [facility] [address] [place] [address], [facility] [phone] * (ABNORMAL) BASIC METABOLIC PANEL (CALCIUM TOTAL) (2022 12:03 AM CDT) BUN 8 7 - 26 mg/dL 2022 12:45 AM [facility] Creatinine 0.56 0.56 - 0.96 mg/dL 2022 12:45 AM [facility] Sodium 139 136 - 145 mmol/L 2022 12:45 AM [facility] Potassium 3.7 3.5 - 4.5 mmol/L 2022 12:45 AM [facility] Chloride 105 98 - 107 mmol/L 2022 12:45 AM [facility] CO2 25 22 - 29 mmol/L 2022 12:45 AM [facility] Glucose 128(H) 70 - 115 mg/dL 2022 12:45 AM [facility] Calcium 8.7 8.4 - 10.2 mg/dL 2022 12:45 AM [facility] Anion Gap 13 8 - 18 2022 12:45 AM [facility] BUN/Creatinine Ratio 14 7 - 23 2022 12:45 AM [facility] Osmolality Calculated 288 270 - 300 mOsm/kg 2022 12:45 AM [facility] eGFR by CKD-EPI >90 >=90 mL/min/1.7 3 m2 2022 12:45 AM [facility] Blood BLOOD SPECIMEN / Unknown Venipuncture / Unknown 2022 12:03 AM CDT 2022 12:18 AM CDT Emir Vail MD LAB - CHEMISTRY BIBIANA BLACKMAN [facility] Organization Address City/State/ZIP Co de Phone Number [facility] [address] [place] [address], [facility] [phone] * (ABNORMAL) CBC W AUTO DIFFERENTIAL (2022 12:03 AM CDT) WBC 20.6(H) 3.5 - 10.5 10? 3 /uL 2022 12:40 AM [facility] RBC 3.41(L) 3.80 - 5.20 10? 6 /uL 2022 12:40 AM [facility] Hemoglobin 10.1(L) 12.0 - 15.6 g/dL 2022 12:40 AM [facility] Hematocrit 31.6(L) 35.0 - 45.0 % 2022 12:40 AM [facility] MCV 92.7 80.7 - 98.3 fL 2022 12:40 AM [facility] MCH 29.6 26.7 - 34.0 pg 2022 12:40 AM [facility] MCHC 32.0 30.8 - 35.9 g/dL 2022 12:40 AM [facility] RDW-SD 49.7 36.0 - 50.0 fL 2022 12:40 AM [facility] RDW-CV 15.1(H) 11.2 - 14.8 % 2022 12:40 AM [facility] Platelet Count 437(H) 150 - 400 10? 3 /uL 2022 12:40 AM [facility] MPV 9.8 9.4 - 12.9 fL 2022 12:40 AM [facility] nRBC Absolute 0.03(H) 0 10? 3 /uL 2022 12:40 AM [facility] nRBC Auto 0.1(H) 0 /100 WBC 2022 12:40 AM [facility] Neutrophils % 71.7(H) 35.0 - 70.0 % 2022 12:40 AM [facility] Lymphocytes % 14.3(L) 20.0 - 43.0 % 2022 12:40 AM [facility] Monocytes % 9.6 5.0 - 13.0 % 2022 12:40 AM [facility] Eosinophils % 2.0 0.0 - 6.0 % 2022 12:40 AM [facility] Basophil % 0.4 0.0 - 2.0 % 2022 12:40 AM [facility] Neutrophils Absolute 14.76(H) 1.60 - 7.00 10? 3 /uL 2022 12:40 AM [facility] Lymphocyte Absolute 2.94 1.10 - 3.90 10? 3 /uL 2022 12:40 AM [facility] Monocytes Absolute 1.98(H) 0.26 - 1.07 10? 3 /uL 2022 12:40 AM [facility] Eosinophils Absolute 0.42 0.00 - 0.47 10? 3 /uL 2022 12:40 AM [facility] Basophils Absolute 0.08 0.00 - 0.08 10? 3 /uL 2022 12:40 AM [facility] Immature Granulocytes % 2.0(H) 0.0 - 1.0 % 2022 12:40 AM [facility] Immature Granulocytes Absolute 0.41 2022 12:40 AM [facility] Blood BLOOD SPECIMEN / Unknown Venipuncture / Unknown 2022 12:03 AM CDT 2022 12:18 AM CDT Emir Vail MD LAB - HEMATOLOGY ORD ERABLES [facility] [address] [place] [address], [facility] [phone] * PHOSPHORUS BLOOD (2022 12:03 AM CDT) Phosphorus 4.1 2.9 - 5.1 mg/dL 2022 12:45 AM CDT [facility] Blood BLOOD SPECIMEN / Unknown Venipuncture / Unknown 2022 12:03 AM CDT 2022 12:18 AM CDT Emir Vail MD LAB - CHEMISTRY BIBIANA BLACKMAN [address] [address], [facility] [phone] * MAGNESIUM BLOOD (2022 12:03 AM CDT) Magnesium 2.1 1.6 - 2.6 mg/dL 2022 12:45 AM CDT [facility] Blood BLOOD SPECIMEN / Unknown Venipuncture / Unknown 2022 12:03 AM CDT 2022 12:18 AM CDT Emir Vail MD LAB - CHEMISTRY BIBIANA BLACKMAN Performing Organization Address [facility]/ZIP Co de Phone Number [address] [address], [facility] [phone] * (ABNORMAL) PTT [facility] (10/31/2022 10:11 PM CDT) APTT 67.6(H) 23.0 - 38.4 Seconds 10/31/2022 11:16 PM CDT [facility] Comment:Suggested therapeuti c range for full dose I.V. unfractionated heparin therapy for venous thromboembolism is 71 to 109 seconds. Blood BLOOD SPECIMEN / Unknown Venipuncture / Unknown 10/31/2022 10:11 PM CDT 10/31/2022 10:24 PM CDT Jim Walter MD LAB - COAGULATION O RDERABLES [facility] [address] [address], [facility] [phone] * (ABNORMAL) PTT [facility] (10/31/2022 7:33 PM CDT) APTT 53.1(H) 23.0 - 38.4 Seconds 10/31/2022 8:18 PM CDT [facility] Comment:Suggested therapeuti c range for full dose I.V. unfractionated heparin therapy for venous thromboembolism is 71 to 109 seconds. Blood BLOOD SPECIMEN / Unknown Venipuncture / Unknown 10/31/2022 7:33 PM CDT 10/31/2022 7:51 PM CDT Good Antunez MD LAB - COAGULATION OR DERABLES [address] [address], [facility] [phone] * (ABNORMAL) PTT [facility] (10/31/2022 3:22 PM CDT) APTT 50.2(H) 23.0 - 38.4 Seconds 10/31/2022 3:51 PM CDT [facility] Comment:Suggested therapeuti c range for full dose I.V. unfractionated heparin therapy for venous thromboembolism is 71 to 109 seconds. Blood BLOOD SPECIMEN / Unknown Venipuncture / Unknown 10/31/2022 3:22 PM CDT 10/31/2022 3:27 PM CDT Good Antunez MD LAB - COAGULATION OR DERABLES [address] [address], [facility] [phone] * CT ABDOMEN PELVIS W CONTRAST (10/31/2022 10:16 AM CDT) Anatomical Region Laterality Modality Abdomen, Pelvis Computed Tomogra phy 10/31/2022 11:0 8 PM CDT Impressions 10/31/2022 11:17 PM CDT Impression: 1.Interval postsurgical changes to the distal right external iliac/proximal right common femoral arteries with previously seen thrombus in this region no longer visualized. There is however irregularity of the artery in this region with mild narrowing which is favored to represent postsurgical changes. Questionable flap within the proximal common femoral artery as detailed above. 2.Extensive soft tissue stranding, edema and fluid along with subcutaneous gas in the right groin likely representing postsurgical changes. Although there is focal fluid in this region, no rim-enhancing drainable fluid collections are appreciated at this time. > Interpreting Provider: Alexx Lopez on 10/31/2022 11:17 PM Narrative 10/31/2022 11:17 PM CDT PROCEDURE: ??CT ABDOMEN PELVIS W CONTRAST, DATE/TIME OF EXAM: ??10/31/2022 10:16 AM, LOCATION ??[facility] INDICATION: I33.0: Aortic valve vegetation ADDITIONAL CLINICAL INFORMATION: Ordering Provider Reason For Exam: ??abscess? Technologist Note: Additional: COMPARISON: CT chest abdomen and pelvis 10/25/2022. TECHNIQUE: CT of the abdomen and pelvis was performed following the uneventful administration of 100 mL of Isovue 370 intravenous contrast according to standard protocol. Findings: Lower Chest: Bibasilar subsegmental atelectasis present. Liver: Normal. Gallbladder and Bile Ducts: The gallbladder is absent. Spleen: Normal. Pancreas: Normal. Adrenals: Normal. Kidneys: Normal. Bladder: A Puentes catheter terminates within a decompressed urinary bladder. Gastrointestinal: Enteric tube terminates in the stomach. Duodenal diverticulum present. The stomach and visualized loops of large and small bowel are otherwise unremarkable. Normal appendix. Mesentery/Peritoneum/Retroperitoneum: Normal. Reproductive Organs: The uterus is normal. Vasculature: There is been interval postsurgical changes to the right common femoral/external iliac artery region with previously seen thrombus in this region no longer visualized. There is however irregularity of the distal right external iliac and proximal right common femoral artery and mild narrowing in this region likely resenting postsurgical changes. Questionable flap in the proximal common femoral artery (series 3 image 153). Bones: Bone windows demonstrate no suspicious lytic or blastic lesions. The visible osseous structures are intact. Soft tissues: There is extensive soft tissue stranding edema and fluid throughout the right groin with multiple foci of subcutaneous gas along likely represent post surgical changes. Although there is focal fluid was prominent at series 3, image 153 in this region no rim-enhancing drainable fluid collections are appreciated at this time. Procedure Note Alexx Lopez MD - 10/31/2022 PROCEDURE: CT ABDOMEN PELVIS W CONTRAST, DATE/TIME OF EXAM: 10/31/2022 10:16 AM, LOCATION [facility] INDICATION: I33.0: Aortic valve vegetation ADDITIONAL CLINICAL INFORMATION: Ordering Provider Reason For Exam: abscess? Technologist Note: Additional: COMPARISON: CT chest abdomen and pelvis 10/25/2022. TECHNIQUE: CT of the abdomen and pelvis was performed following the uneventful administration of 100 mL of Isovue 370 intravenous contrast according to standard protocol. Findings: Lower Chest: Bibasilar subsegmental atelectasis present. Liver: Normal. Gallbladder and Bile Ducts: The gallbladder is absent. Spleen: Normal. Pancreas: Normal. Adrenals: Normal. Kidneys: Normal. Bladder: A Puentes catheter terminates within a decompressed urinary bladder. Gastrointestinal: Enteric tube terminates in the stomach. Duodenal diverticulum present. The stomach and visualized loops of large andsmall bowel are otherwise unremarkable. Normal appendix. Mesentery/Peritoneum/Retroperitoneum: Normal. Reproductive Organs: The uterus is normal. Vasculature: There is been interval postsurgical changes to the right common femoral/external iliac artery region with previously seenthrombus in this region no longer visualized. There is however irregularity ofthe distal right external iliac and proximal right common femoral artery and mild narrowing in this region likely resenting postsurgical changes. Questionable flap in the proximal common femoral artery (series 3 image 153). Bones: Bone windows demonstrate no suspicious lytic or blastic lesions.The visible osseous structures are intact. Soft tissues: There is extensive soft tissue stranding edema and fluid throughout the right groin with multiple foci of subcutaneous gas along likely represent post surgical changes. Although there is focal fluidwas prominent at series 3, image 153 in this region no rim-enhancingdrainable fluid collections are appreciated at this time. Impression: 1.Interval postsurgical changes to the distal right externaliliac/proximal right common femoral arteries with previously seen thrombus in thisregion no longer visualized. There is however irregularity of the artery inthis region with mild narrowing which is favored to represent postsurgical changes. Questionable flap within the proximal common femoral artery as detailed above. 2.Extensive soft tissue stranding, edema and fluid along withsubcutaneous gas in the right groin likely representing postsurgical changes.Although there is focal fluid in this region, no rim-enhancing drainable fluid collections are appreciated at this time. > Interpreting Provider: lAexx Lopez on 10/31/2022 11:17 PM Jim Walter MD CT ORDERABLES * PTT [facility] (10/31/2022 9:48 AM CDT) [facility] APTT 27.2 23.0 - 38.4 Seconds 10/31/2022 10:23 AM CDT [facility] Comment:Suggested therapeuti c range for full dose I.V. unfractionated heparin therapy for venous thromboembolism is 71 to 109 seconds. Blood BLOOD SPECIMEN / Unknown Venipuncture / Unknown 10/31/2022 9:48 AM CDT 10/31/2022 9:54 AM CDT Good Antunez MD LAB - COAGULATION OR DERABLES Performing Organization Address City/[facility]/ZIP Co de Phone Number [address] [address], [facility] [phone] * (ABNORMAL) VANCOMYCIN LEVEL TROUGH (10/31/2022 9:48 AM CDT) [facility] Vancomycin Trough 25.4(HH) 10.0 - 20.0 ug/mL 10/31/2022 10:30 AM CDT [facility] Blood BLOOD SPECIMEN / Unknown Venipuncture / Unknown 10/31/2022 9:48 AM CDT 10/31/2022 9:51 AM CDT Narrative [facility] - 10/31/2022 10:30 AM CDT See institution protocol. Dary Garvey MD LAB - CHEMISTRY BIBIANA BLACKMAN Performing Organization Address City/[facility]/ZIP Co de Phone Number [address] [address], [place] [phone] * PT-INR [facility] (10/31/2022 12:22 AM CDT) [facility] PT 14.5 12.1 - 14.8 Seconds 10/31/2022 12:54 AM [facility] INR 1.1 See Comment 10/31/2022 12:54 AM [facility] Comment:The suggested therap eutic range for standard coumadin (warfarin) therapy is an INR of 2.0-3.0. For high-risk patients (Mechanical Mitral Valve Prosthesis, etc.), the suggested prophylactic therapeutic range is an INR of 2.5-3.5. Blood BLOOD SPECIMEN / Unknown Venipuncture / Unknown 10/31/2022 12:22 AM CDT 10/31/2022 12:30 AM T Emir Vail MD LAB - COAGULATION OR DERABLES Performing Organization Address [facility]/State/ZIP Co de Phone Number [facility] [address] [place] [address], [facility] [phone] * (ABNORMAL) BASIC METABOLIC PANEL (CALCIUM TOTAL) (10/31/2022 12:22 AM CD) BUN 8 7 - 26 mg/dL 10/31/2022 12:57 AM [facility] Creatinine 0.56 0.56 - 0.96 mg/dL 10/31/2022 12:57 AM [facility] Sodium 140 136 - 145 mmol/L 10/31/2022 12:57 AM [facility] Potassium 4.2 3.5 - 4.5 mmol/L 10/31/2022 12:57 AM [facility] Chloride 107 98 - 107 mmol/L 10/31/2022 12:57 AM [facility] CO2 24 22 - 29 mmol/L 10/31/2022 12:57 AM [facility] Glucose 119(H) 70 - 115 mg/dL 10/31/2022 12:57 AM [facility] Calcium 8.4 8.4 - 10.2 mg/dL 10/31/2022 12:57 AM [facility] Anion Gap 13 8 - 18 10/31/2022 12:57 AM [facility] BUN/Creatinine Ratio 14 7 - 23 10/31/2022 12:57 AM [facility] Osmolality Calculated 289 270 - 300 mOsm/kg 10/31/2022 12:57 AM [facility] eGFR by CKD-EPI >90 >=90 mL/min/1.7 3 m2 10/31/2022 12:57 AM [facility] Blood BLOOD SPECIMEN / Unknown Venipuncture / Unknown 10/31/2022 12:22 AM CDT 10/31/2022 12:30 AM T Emir Vail MD LAB - CHEMISTRY BIBIANA BLACKMAN [facility] Organization Address City/State/ZIP Co de Phone Number [facility] [address] [place] [address], [facility] [phone] * (ABNORMAL) CBC W AUTO DIFFERENTIAL (10/31/2022 12:22 AM [facility]) WBC 19.6(H) 3.5 - 10.5 10? 3 /uL 10/31/2022 12:40 AM [facility] RBC 3.30(L) 3.80 - 5.20 10? 6 /uL 10/31/2022 12:40 AM [facility] Hemoglobin 9.9(L) 12.0 - 15.6 g/dL 10/31/2022 12:40 AM [facility] Hematocrit 30.4(L) 35.0 - 45.0 % 10/31/2022 12:40 AM [facility] MCV 92.1 80.7 - 98.3 fL 10/31/2022 12:40 AM [facility] MCH 30.0 26.7 - 34.0 pg 10/31/2022 12:40 AM [facility] MCHC 32.6 30.8 - 35.9 g/dL 10/31/2022 12:40 AM [facility] RDW-SD 50.4(H) 36.0 - 50.0 fL 10/31/2022 12:40 AM [facility] RDW-CV 15.3(H) 11.2 - 14.8 % 10/31/2022 12:40 AM [facility] Platelet Count 442(H) 150 - 400 10? 3 /uL 10/31/2022 12:40 AM [facility] MPV 9.5 9.4 - 12.9 fL 10/31/2022 12:40 AM [facility] nRBC Absolute 0.15(H) 0 10? 3 /uL 10/31/2022 12:40 AM [facility] nRBC Auto 0.8(H) 0 /100 WBC 10/31/2022 12:40 AM [facility] Neutrophils % 74.0(H) 35.0 - 70.0 % 10/31/2022 12:40 AM [facility] Lymphocytes % 13.5(L) 20.0 - 43.0 % 10/31/2022 12:40 AM [facility] Monocytes % 8.3 5.0 - 13.0 % 10/31/2022 12:40 AM [facility] Eosinophils % 1.4 0.0 - 6.0 % 10/31/2022 12:40 AM [facility] Basophil % 0.4 0.0 - 2.0 % 10/31/2022 12:40 AM [facility] Neutrophils Absolute 14.54(H) 1.60 - 7.00 10? 3 /uL 10/31/2022 12:40 AM [facility] Lymphocyte Absolute 2.65 1.10 - 3.90 10? 3 /uL 10/31/2022 12:40 AM [facility] Monocytes Absolute 1.63(H) 0.26 - 1.07 10? 3 /uL 10/31/2022 12:40 AM [facility] Eosinophils Absolute 0.28 0.00 - 0.47 10? 3 /uL 10/31/2022 12:40 AM [facility] Basophils Absolute 0.07 0.00 - 0.08 10? 3 /uL 10/31/2022 12:40 AM [facility] Immature Granulocytes % 2.4(H) 0.0 - 1.0 % 10/31/2022 12:40 AM [facility] Immature Granulocytes Absolute 0.47 10/31/2022 12:40 AM [facility] Blood BLOOD SPECIMEN / Unknown Venipuncture / Unknown 10/31/2022 12:22 AM CDT 10/31/2022 12:30 AM CDT Emir Vail MD LAB - HEMATOLOGY ANKUR COCHRAN Performing Organization Address City/[facility]/ZIP Co de Phone Number [facility] [address] [place] [address], [place] [phone] * PHOSPHORUS BLOOD (10/31/2022 12:22 AM CDT) Phosphorus 4.1 2.9 - 5.1 mg/dL 10/31/2022 12:57 AM CDT [facility] Blood BLOOD SPECIMEN / Unknown Venipuncture / Unknown 10/31/2022 12:22 AM CDT 10/31/2022 12:30 AM CDT Emir Vail MD LAB - CHEMISTRY BIBIANA BLACKMAN Performing Organization Address City/[facility]/ZIP Co de Phone Number [facility] [address] [place] [address], [place] [phone] * MAGNESIUM BLOOD (10/31/2022 12:22 AM CDT) Magnesium 1.9 1.6 - 2.6 mg/dL 10/31/2022 12:57 AM CDT [facility] Blood BLOOD SPECIMEN / Unknown Venipuncture / Unknown 10/31/2022 12:22 AM CDT 10/31/2022 12:30 AM CDT Emir Vail MD LAB - CHEMISTRY BIBIANA BLACKMAN [facility] [address] [place] [address], [place] [phone] * PTT [facility] (10/30/2022 9:24 PM CDT) APTT 25.8 23.0 - 38.4 Seconds 10/30/2022 9:55 PM CDT [facility] Comment:Suggested therapeuti c range for full dose I.V. unfractionated heparin therapy for venous thromboembolism is 71 to 109 seconds. Blood BLOOD SPECIMEN / Unknown Venipuncture / Unknown 10/30/2022 9:24 PM CDT 10/30/2022 9:36 PM CDT Good Antunez MD LAB - COAGULATION OR DERABLES Performing Organization Address [facility]/ZIP Co de Phone Number [address] [address], [facility] [phone] * PTT [facility] (10/30/2022 8:32 PM CDT) APTT 27.9 23.0 - 38.4 Seconds 10/30/2022 9:06 PM CDT [facility] Comment:Suggested therapeuti c range for full dose I.V. unfractionated heparin therapy for venous thromboembolism is 71 to 109 seconds. Blood BLOOD SPECIMEN / Unknown Venipuncture / Unknown 10/30/2022 8:32 PM CDT 10/30/2022 8:41 PM CDT Good Antunez MD LAB - COAGULATION OR DERABLES Performing Organization Address [facility] Co de Phone Number [address] [address], [facility] [phone] * CT HEAD WO CONTRAST (10/30/2022 8:22 PM CDT) Anatomical Region Laterality Modality Head Computed Tomogra phy 10/31/2022 12:2 4 AM CDT Impressions 10/31/2022 1:26 AM CDT IMPRESSION: Compared to prior head CT 10/28/2022: 1.Re-demonstrated postsurgical changes of decompressive right frontoparietotemporal craniectomy with multiple overlying scalp carla. Evolving heterogeneous subdural hematoma along the right frontotemporal convexity measuring up to 8 mm in maximal thickness (/), previously measuring up to 9 mm in thickness. 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 Increased conspicuity of a thin hyperdensity along the cortex within this region suggestive of evolving cortical laminar necrosis. 3.Re-demonstrated small hypodensity of the left inferior frontal gyrus/frontal operculum, consistent with an evolving wimebwrf-pe-ekjxhfj infarct. 4.No significant midline shift. Similar-appearing size and configuration of the ventricles without evidence of hydrocephalus. Basal cisterns are patent. 5.No other convincing change. Partially imaged left nasoenteric tube. 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 EXAMINATION: CT scan of the head without intravenous contrast TECHNIQUE: CT of the head was performed without intravenous contrast according to standard protocol. CT dose reduction technique was used, including Automated Exposure Control. COMPARISON: Head CT 10/28/2022. Brain MRI 10/24/2022. FINDINGS: See impression. 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 EXAMINATION: CT scan of the head without intravenous contrast TECHNIQUE: CT of the head was performed without intravenous contrast according to standard protocol. CT dose reduction technique was used, including Automated Exposure Control. COMPARISON: Head CT 10/28/2022. Brain MRI 10/24/2022. FINDINGS: See impression. IMPRESSION: Compared to prior head CT 10/28/2022: 1.Re-demonstrated postsurgical changes of decompressive right frontoparietotemporal craniectomy with multiple overlying scalp carla. Evolving heterogeneous subdural hematoma along the right frontotemporal convexity measuring up to 8 mm in maximal thickness (5/32), previously measuring up to 9 mm in thickness. 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 Increased conspicuity of a thinhyperdensity along the cortex within this region suggestive of evolving corticallaminar necrosis. 3.Re-demonstrated small hypodensity of the left inferior frontal gyrus/frontal operculum, consistent with an evolving mnqymhjq-rc-vosfgru infarct. 4.No significant midline shift. Similar-appearing size and configurationof the ventricles without evidence of hydrocephalus. Basal cisterns are patent. 5.No other convincing change. Partially imaged left nasoenteric tube. > Interpreting Provider: Amanda Real MD, PhD on 10/31/2022 1:26 AM Jim Walter MD CT ORDERABLES * (ABNORMAL) PTT [facility] (10/30/2022 4:59 PM CDT) APTT 175.2(HH) 23.0 - 38.4 Seconds 10/30/2022 5:47 PM CDT [facility] Comment:Suggested therapeuti c range for full dose I.V. unfractionated heparin therapy for venous thromboembolism is 71 to 109 seconds. Blood BLOOD SPECIMEN / Unknown Venipuncture / Unknown 10/30/2022 4:59 PM CDT 10/30/2022 5:11 PM CDT Good Antunez MD LAB - COAGULATION OR DERABLES Performing Organization Address [facility]/ZIP Co de Phone Number [facility] [address] [address], [facility] [phone] * [place] GLENN Llamas ANGIO TEAM (10/30/2022 2:40 PM CDT) Narrative [facility] RADIOLOG[facility] - 10/30/2022 2:56 PM CDT Fluoroscopy was used for this exam in the OR. Please see the Operative report. Valdez Clay MD FLUOROSCOPY ORDERA BLES Performing Organization Address [facility]/ZIP Co de Phone Number [facility] * TRANSFUSE RED BLOOD CELL LEUKOREDUCED UNIT(S) (10/30/2022 2:20 PM CDT) Valdez Clay MD NURSING - BLOOD CO OD TRANSFUSION * TRANSFUSE RED BLOOD CELL LEUKOREDUCED UNIT(S) (10/30/2022 1:53 PM CDT) Valdez Clay MD NURSING - BLOOD CO OD TRANSFUSION * ACT LR - POCT ([facility]) (10/30/2022 1:50 PM CDT) ACT LR 287 See result comments sec 10/30/2022 6:37 PM CDT [facility] Blood BLOOD SPECIMEN / Unknown 10/30/2022 1:50 PM CDT 10/30/2022 6:37 PM CDT Narrative [facility] - 10/30/2022 6:37 PM CDT ACT-LR Therapeutics ranges are: Cardiac labor relations consultant = 200-300 seconds Sheath pull = ACT [...] Walter MD LAB - COAGULATION O RDERABLES [facility] [address] [place] [address], [facility] [phone] * (ABNORMAL) BLOOD GAS+COOX+LYTES+METAB ARTERIAL POCT (10/30/2022 1:33 PM CDT) pH Arterial 7.40 7.35 - 7.45 pH 10/30/2022 1:33 PM CDT [facility] pO2 Arterial 228(H) 80 - 100 mmHg 10/30/2022 1:33 PM CDT [facility] pCO2 Arterial 39 35 - 45 mmHg 1:33 PM CDT [facility] HCO3 Arterial 24.2 20.0 - 30.0 mmol/L 10/30/2022 1:33 PM CDT [facility] BE Arterial -0.5 -2.0 - 2.0 mmol/L 10/30/2022 1:33 PM [facility] Oxyhemoglobin Arterial 97.5 % 10/30/2022 1:33 PM [facility] Dexoyhemoglobin (HHB) % <1.0 % 10/30/2022 1:33 PM [facility] Methemoglobin <0.8 0.0 - 2.0 % 10/30/2022 1:33 PM [facility] Carboxyhemoglobin 1.4 0.0 - 2.0 % 2022 1:33 PM [facility] Comment:Carboxyhemoglobin No rmal Concentration: Non-smokers: 0-2%; Smokers: 0- 9%; Toxic: >20% O2 Content Arterial 11.3 Interpret within clinical context ml/dL 10/30/2022 1:33 PM [facility] Hemoglobin by COOX 7.8(L) 12.0 - 15.6 g/dL 10/30/2022 1:33 PM [facility] O2 Saturation Arterial 100 90 - 100 % 10/30/2022 1:33 PM [facility] Sodium Whole Blood 140 135 - 145 mmol/L 10/30/2022 1:33 PM [facility] Potassium Whole Blood 4.4 3.5 - 5.5 mmol/L 10/30/2022 1:33 PM [facility] Chloride WB 108(H) 78 - 107 mmol/L 10/30/2022 1:33 PM [facility] Calcium Ionized 1.30 mmol/L 1:33 PM [facility] Ionized Calcium pH Adjusted 1.30 1.19 - 1.34 mmol/L 10/30/2022 1:33 PM [facility] Anion Gap (AG) Arterial 12 8 - 18 mmol/L 10/30/2022 1:33 PM [facility] Glucose WB 127(H) 70 - 115 mg/dL 10/30/2022 1:33 PM [facility] Lactic Acid Whole Blood 0.9 <=2.0 mmol/L 10/30/2022 1:33 PM [facility] Blood, arterial ARTERIAL BLOOD SPECIMEN / Unknown 10/30/2022 1:33 PM CDT 10/30/2022 1:34 PM CDT Jim Walter MD LAB - POINT OF CARE ORDERABLES Performing Organization Address City/[facility]/ZIP Co de Phone Number [facility] [address] [place] [address], [place] [phone] * ACT LR - POCT ([facility]) (10/30/2022 1:32 PM CDT) ACT LR 171 See result comments sec 10/30/2022 6:37 PM CDT [facility] Blood BLOOD SPECIMEN / Unknown 10/30/2022 1:32 PM CDT 10/30/2022 6:37 PM CDT Narrative [facility] - 10/30/2022 6:37 PM CDT ACT-LR Therapeutics ranges are: Cardiac labor relations consultant = 200-300 seconds Sheath pull = ACT [...] Walter MD LAB - COAGULATION O RDERABLES Performing Organization Address City/[facility]/ZIP Co de Phone Number [facility] [address] [place] [address], [place] [phone] * (ABNORMAL) BLOOD GAS+COOX+LYTES+METAB ARTERIAL POCT (10/30/2022 12:59 PM CDT) pH Arterial 7.33(L) 7.35 - 7.45 pH 10/30/2022 12:59 PM CDT [facility] pO2 Arterial 208(H) 80 - 100 mmHg 10/30/2022 12:59 PM CDT [facility] pCO2 Arterial 49(H) 35 - 45 mmHg 12:59 PM [facility] HCO3 Arterial 25.8 20.0 - 30.0 mmol/L 10/30/2022 12:59 PM [facility] BE Arterial -0.2 -2.0 - 2.0 mmol/L 10/30/2022 12:59 PM [facility] Oxyhemoglobin Arterial 95.7 % 10/30/2022 12:59 PM [facility] Dexoyhemoglobin (HHB) % 1.6 % 10/30/2022 12:59 PM [facility] Methemoglobin 1.4 0.0 - 2.0 % 10/30/2022 12:59 PM [facility] Carboxyhemoglobin 1.3 0.0 - 2.0 % 2022 12:59 PM [facility] Comment:Carboxyhemoglobin No rmal Concentration: Non-smokers: 0-2%; Smokers: 0- 9%; Toxic: >20% O2 Content Arterial 10.2 Interpret within clinical context ml/dL 10/30/2022 12:59 PM [facility] Hemoglobin by COOX 7.2(L) 12.0 - 15.6 g/dL 10/30/2022 12:59 PM [facility] O2 Saturation Arterial 98 90 - 100 % 10/30/2022 12:59 PM [facility] Sodium Whole Blood 139 135 - 145 mmol/L 10/30/2022 12:59 PM [facility] Potassium Whole Blood 4.2 3.5 - 5.5 mmol/L 10/30/2022 12:59 PM [facility] Chloride WB 109(H) 78 - 107 mmol/L 10/30/2022 12:59 PM [facility] Calcium Ionized 1.08 mmol/L 12:59 PM [facility] Ionized Calcium pH Adjusted 1.05(L) 1.19 - 1.34 mmol/L 10/30/2022 12:59 PM [facility] Anion Gap (AG) Arterial 8 8 - 18 mmol/L 10/30/2022 12:59 PM [facility] Glucose WB 133(H) 70 - 115 mg/dL 10/30/2022 12:59 PM [facility] Lactic Acid Whole Blood 0.7 <=2.0 mmol/L 10/30/2022 12:59 PM CDT [facility] Blood, arterial ARTERIAL BLOOD SPECIMEN / Unknown 10/30/2022 12:59 PM CDT 10/30/2022 1:00 PM CDT Jim Walter MD LAB - POINT OF CARE ORDERABLES Performing Organization Address City/[facility]/ZIP Co de Phone Number [address] [address], [facility] [phone] * ACT LR - POCT ([facility]) (10/30/2022 12:57 PM CDT) ACT LR 228 See result comments sec 10/30/2022 6:37 PM CDT [facility] Blood BLOOD SPECIMEN / Unknown 10/30/2022 12:57 PM CDT 10/30/2022 6:37 PM CDT Narrative [facility] - 10/30/2022 6:37 PM CDT ACT-LR Therapeutics ranges are: Cardiac labor relations consultant = 200-300 seconds Sheath pull = ACT [...] Walter MD LAB - COAGULATION O RDERABLES [address] [address], [place] [phone] * BLOOD GAS ART+LYTES+METAB+COOX POC NOTIF (10/30/2022 12:50 PM CDT) Comment Notification Label Only - See Separate Report 10/30/2022 2:02 PM CDT [facility] Other MISCELLANEOUS SAMPLES / Unknown 10/30/2022 12:50 PM CDT 10/30/2022 12:54 PM CDT Manuel Ramirez MD LAB - BLOOD GASES ORDERABLES Performing Organization Address [facility] Co de Phone Number [facility] [address] [place] [address], [facility] [phone] * ACT LR - POCT ([facility]) (10/30/2022 12:26 PM CDT) ACT LR 260 See result comments sec 10/30/2022 6:37 PM CDT [facility] Blood BLOOD SPECIMEN / Unknown 10/30/2022 12:26 PM CDT 10/30/2022 6:37 PM CDT Narrative [facility] - 10/30/2022 6:37 PM CDT ACT-LR Therapeutics ranges are: Cardiac labor relations consultant = 200-300 seconds Sheath pull = ACT [...] Walter MD LAB - COAGULATION O RDERABLES Performing Organization Address [facility] Co de Phone Number [address] [address], [place] [phone] * PATHOLOGY TISSUE (10/30/2022 12:18 PM CDT) Case Report Surgical Pathology Report ? Case: [id number] ? Authorizing Provider: ??Valdez Clay MD ?Collected: ? 10/30/2022 12:18 PM ? Ordering Location: ? [facility] ICU ? Received: ?10/30/2022 01:28 PM ? Pathologist: ? Rayna Barrera MD ? Specimen: ?Thrombus, right femoral thrombus ? 11/04/2022 6:13 PM [facility] Final Diagnosis Thrombus, right femoral, thrombectomy (A): - Thrombus 11/04/2022 6:13 PM [facility] Microscopic Description and Comment Microscopic examination substantiates the final diagnosis. 11/04/2022 6:13 PM [facility] Clinical History The patient is a 41 year old woman with right common femoral thrombosis. 11/04/2022 6:13 PM [facility] Gross Description The requisition and specimen(s) are identified with the patient's name, Consuelo Darby. Received in formalin, specimen A , 1.7 x 0.7 x 0.3 cm aggregate of pink-ducnan to red thrombus material. Entirely submitted in cassette A1. RB/CC 11/04/2022 6:13 PM [facility] Path[facility] at [facility] 11/04/2022 6:13 PM [facility] Disclaimer The performance characteristics of all immunohistochemical and indirect immunofluorescence stains (if any) cited in this report were determined by the Histopathology Laboratory of [facility]. Some of these tests were developed by [...] the attending (teaching) pathologist. 11/04/2022 6:13 PM CDT [facility] Embedded Images 11/04/2022 6:13 PM CDT [facility] Resection without Tumor THROMBUS / Unknown 10/30/2022 12:18 PM CDT 10/30/2022 1:28 PM CDT Comment:Pre-op diagnosis: Critical limb-threatening ischemia Valdez Clay MD LAB - PATHOLOGY/ARJUN ROLON ORDERABLES Performing Organization Address [facility]/ZIP Co de Phone Number [facility] [address] [place] [address], [facility] [phone] * ACT LR - POCT ([facility]) (10/30/2022 12:16 PM CDT) ACT LR 223 See result comments sec 10/30/2022 6:37 PM CDT [facility] Blood BLOOD SPECIMEN / Unknown 10/30/2022 12:16 PM CDT 10/30/2022 6:37 PM CDT Narrative [facility] - 10/30/2022 6:37 PM CDT ACT-LR Therapeutics ranges are: Cardiac labor relations consultant = 200-300 seconds Sheath pull = ACT [...] Walter MD LAB - COAGULATION O RDERABLES Performing Organization Address [facility]/ZIP Co de Phone Number [facility] [address] [place] [address], [facility] [phone] * ACT LR - POCT ([facility]) (10/30/2022 12:07 PM CDT) ACT LR 121 See result comments sec 10/30/2022 6:37 PM CDT [facility] Blood BLOOD SPECIMEN / Unknown 10/30/2022 12:07 PM CDT 10/30/2022 6:37 PM CDT Narrative [facility] - 10/30/2022 6:37 PM CDT ACT-LR Therapeutics ranges are: Cardiac labor relations consultant = 200-300 seconds Sheath pull = ACT [...] Walter MD LAB - COAGULATION O RDERABLES Performing Organization Address City/[facility]/ZIP Co de Phone Number [address] [address], [place] [phone] * PREPARE (CROSSMATCH) RBC UNIT(S), 1 Units (10/30/2022 10:38 AM CDT) Pathologist [facility] Unit Description AS1 LR PRBC [facility] BLOOD [facility] LAB Unit ABO B [facility] B[facility]OD [facility] LAB Unit Rh POS [facility] LAB Product Number R02 [facility] B LOOD BANK LAB Unit Donor # [id number] [facility] B[facility]OD [facility] Unit Status transfused [facility] BLO OD BANK LAB Product Code [id number] [facility] BLO OD BANK LAB Blood Type Barcode 7300 [facility] B[facility] LAB Expiration Date [id number] S BLOOD BANK LAB Blood Bank BLOOD SPECIMEN / Unknown 10/29/2022 11:32 AM CDT Jim Walter MD LAB - BLOOD BANK OR DERABLES [facility] BLOOD [facility] LAB [address] [place] [address], [place] [phone] * (ABNORMAL) PTT [facility] (10/30/2022 8:39 AM CDT) APTT 96.2(H) 23.0 - 38.4 Seconds 10/30/2022 9:23 AM CDT [facility] Comment:Suggested therapeuti c range for full dose I.V. unfractionated heparin therapy for venous thromboembolism is 71 to 109 seconds. Blood BLOOD SPECIMEN / Unknown Venipuncture / Unknown 10/30/2022 8:39 AM CDT 10/30/2022 8:44 AM CDT Good Antunez MD LAB - COAGULATION OR DERABLES [facility] [address] [place] [address], [facility] [phone] * PT-INR [facility] (10/30/2022 2:37 AM CDT) [facility] PT 13.6 12.1 - 14.8 Seconds 10/30/2022 3:26 AM CDT [facility] INR 1.0 See Comment 10/30/2022 3:26 AM CDT [facility] Comment:The suggested therap eutic range for standard coumadin (warfarin) therapy is an INR of 2.0-3.0. For high-risk patients (Mechanical Mitral Valve Prosthesis, etc.), the suggested prophylactic therapeutic range is an INR of 2.5-3.5. Blood BLOOD SPECIMEN / Unknown Venipuncture / Unknown 10/30/2022 2:37 AM CDT 10/30/2022 2:46 AM CDT Emir Vail MD LAB - COAGULATION OR DERABLES [facility] [address] [place] [address], [facility] [phone] * (ABNORMAL) PTT [facility] (10/30/2022 2:37 AM CDT) APTT 77.7(H) 23.0 - 38.4 Seconds 10/30/2022 3:26 AM CDT [facility] Comment:Suggested therapeuti c range for full dose I.V. unfractionated heparin therapy for venous thromboembolism is 71 to 109 seconds. Blood BLOOD SPECIMEN / Unknown Venipuncture / Unknown 10/30/2022 2:37 AM CDT 10/30/2022 2:46 AM CDT Good Antunez MD LAB - COAGULATION OR DERABLES Performing Organization Address [facility] de Phone Number [address] [address], [facility] [phone] * HCG BETA BLOOD QUANTITATIVE (10/30/2022 12:17 AM CDT) [facility] Beta-hCG Total Quantitative <3 mIU/mL 10/30/2022 1:14 AM CDT [facility] Comment: HCG Numeric Result Interpretation: [...] BLOOD SPECIMEN / Unknown Venipuncture / Unknown 10/30/2022 12:17 AM CDT 10/30/2022 12:29 AM CDT Jim Walter MD LAB - CHEMISTRY ORD ERABLES Performing Organization Address [facility] Co de Phone Number [address] [address], [facility] [phone] * (ABNORMAL) DIFFERENTIAL MANUAL (10/30/2022 12:17 AM CDT) [facility] WBC (corrected for NRBC) 17.9 10? 3 /uL 10/30/2022 1:27 AM CDT [facility] Total Cell Count 100 10/31/19 1:27 AM CDT [facility] Neutrophils Absolute Manual 11.46(H) 1.60 - 7.00 10? 3 /uL 10/30/2022 1:27 AM [facility] Comment:(BANDS+SEGS) x WBC = NEUT # (ANC) Lymphocyte Absolute Manual 4.83(H) 1.10 - 3.90 10? 3 /uL 10/30/2022 1:27 AM [facility] Monocytes Absolute Manual 0.90 0.26 - 1.07 10? 3 /uL 10/30/2022 1:27 AM [facility] Basophil Absolute Manual 0.18(H) 0.00 - 0.08 10? 3 /uL 10/30/2022 1:27 AM [facility] Band % Manual 3 0 - 10 % 10/30/2022 1:27 AM [facility] Neutrophil % Manual 61 35 - 70 % 10/30/2022 1:27 AM [facility] Lymphocyte % Manual 27 20 - 43 % 10/30/2022 1:27 AM [facility] Monocytes % Manual 5 5 - 13 % 10/30/2022 1:27 AM [facility] Basophils % Manual 1 0 - 2 % 10/30/2022 1:27 AM [facility] Metamyelocyte % Manual 1(H) 0 % 10/30/2022 1:27 AM [facility] Myelocytes % Manual 2(H) 0 % 10/30/2022 1:27 AM [facility] nRBC Manual 1(H) 0 /100 WBC 10/30/2022 1:27 AM [facility] Platelet Estimate Increased(A ) Adequate 10/30/2022 1:27 AM [facility] Anisocytosis Occasional( A) None 10/30/2022 1:27 AM [facility] Macrocytosis Few(A) None 10/30/2022 1:27 AM [facility] Polychromasia Few(A) None 10/30/2022 1:27 AM [facility] [place] Bodies Rare(A) None 10/30/2022 1:27 AM [facility] Ovalocytes Rare(A) None 10/30/2022 1:27 AM [facility] Eduardo Cells Occasional( A) None 10/30/2022 1:27 AM [facility] Smudge Cells Rare(A) None 10/30/2022 1:27 AM [facility] Comment Platelet Platelet clumpled on the smear but appear increased. 10/30/2022 1:27 AM [facility] Blood BLOOD SPECIMEN / Unknown Venipuncture / Unknown 10/30/2022 12:17 AM CDT 10/30/2022 12:28 AM CDT Emir Vail MD LAB - HEMATOLOGY ORD ERABLES [facility] [address] [place] [address], [facility] [phone] * (ABNORMAL) BASIC METABOLIC PANEL (CALCIUM TOTAL) (10/30/2022 12:17 AM T) BUN 11 7 - 26 mg/dL 10/30/2022 1:03 AM [facility] Creatinine 0.61 0.56 - 0.96 mg/dL 10/30/2022 1:03 AM [facility] Sodium 141 136 - 145 mmol/L 10/30/2022 1:03 AM [facility] Potassium 4.0 3.5 - 4.5 mmol/L 10/30/2022 1:03 AM [facility] Chloride 107 98 - 107 mmol/L 10/30/2022 1:03 AM [facility] CO2 25 22 - 29 mmol/L 10/30/2022 1:03 AM [facility] Glucose 134(H) 70 - 115 mg/dL 10/30/2022 1:03 AM [facility] Calcium 8.8 8.4 - 10.2 mg/dL 10/30/2022 1:03 AM [facility] Anion Gap 13 8 - 18 10/30/2022 1:03 AM [facility] BUN/Creatinine Ratio 18 7 - 23 10/30/2022 1:03 AM [facility] Osmolality Calculated 293 270 - 300 mOsm/kg 10/30/2022 1:03 AM [facility] eGFR by CKD-EPI >90 >=90 mL/min/1.7 3 m2 10/30/2022 1:03 AM [facility] Blood BLOOD SPECIMEN / Unknown Venipuncture / Unknown 10/30/2022 12:17 AM CDT 10/30/2022 12:29 AM CDT Emir Vail MD LAB - CHEMISTRY BIB[place]NA BLACKMAN [facility] Organization Address City/State/ZIP Co de Phone Number [facility] [address] [place] [address], [facility] [phone] * (ABNORMAL) CBC W AUTO DIFFERENTIAL (10/30/2022 12:17 AM CDT) WBC 17.9(H) 3.5 - 10.5 10? 3 /uL 10/30/2022 12:45 AM [facility] Comment:The WBC count is cor rected by the instrument for nRBC's RBC 2.53(L) 3.80 - 5.20 10? 6 /uL 10/30/2022 12:45 AM [facility] Hemoglobin 7.6(L) 12.0 - 15.6 g/dL 10/30/2022 12:45 AM [facility] Hematocrit 24.3(L) 35.0 - 45.0 % 10/30/2022 12:45 AM [facility] MCV 96.0 80.7 - 98.3 fL 10/30/2022 12:45 AM [facility] MCH 30.0 26.7 - 34.0 pg 10/30/2022 12:45 AM [facility] MCHC 31.3 30.8 - 35.9 g/dL 10/30/2022 12:45 AM [facility] RDW-SD 47.9 36.0 - 50.0 fL 10/30/2022 12:45 AM [facility] RDW-CV 13.8 11.2 - 14.8 % 10/30/2022 12:45 AM [facility] Platelet Count 586(H) 150 - 400 10? 3 /uL 10/30/2022 12:45 AM [facility] MPV 10.4 9.4 - 12.9 fL 10/30/2022 12:45 AM [facility] [facility] nRBC Absolute 0.18(H) 0 10? 3 /uL 10/30/2022 12:45 AM CDT [facility] nRBC Auto 1.0(H) 0 /100 WBC 10/30/2022 12:45 AM CDT [facility] Blood BLOOD SPECIMEN / Unknown Venipuncture / Unknown 10/30/2022 12:17 AM CDT 10/30/2022 12:28 AM CDT Emir Vail MD LAB - HEMATOLOGY ORD ERAJESSE [address] [address], [place] [phone] * PHOSPHORUS BLOOD (10/30/2022 12:17 AM CDT) Phosphorus 5.1 2.9 - 5.1 mg/dL 10/30/2022 1:03 AM CDT [facility] Blood BLOOD SPECIMEN / Unknown Venipuncture / Unknown 10/30/2022 12:17 AM CDT 10/30/2022 12:29 AM CDT Emir Vail MD LAB - CHEMISTRY BIBIANA BLACKMAN Performing Organization Address City/[facility]/ZIP Co de Phone Number [address] [address], [place] [phone] * MAGNESIUM BLOOD (10/30/2022 12:17 AM CDT) Magnesium 2.1 1.6 - 2.6 mg/dL 10/30/2022 1:03 AM CDT [facility] Blood BLOOD SPECIMEN / Unknown Venipuncture / Unknown 10/30/2022 12:17 AM CDT 10/30/2022 12:29 AM CDT Emir Vail MD LAB - CHEMISTRY BIBIANA BLACKMAN Performing Organization Address City/[facility]/ZIP Co de Phone Number [address] [address], [place] [phone] * (ABNORMAL) PTT [facility] (10/29/2022 8:02 PM CDT) APTT 70.7(H) 23.0 - 38.4 Seconds 10/29/2022 8:41 PM CDT [facility] Comment:Suggested therapeuti c range for full dose I.V. unfractionated heparin therapy for venous thromboembolism is 71 to 109 seconds. Blood BLOOD SPECIMEN / Unknown Venipuncture / Unknown 10/29/2022 8:02 PM CDT 10/29/2022 8:14 PM CDT Good Antunez MD LAB - COAGULATION OR DERABLES Performing Organization Address City/[facility]/ZIP Co de Phone Number [address] [address], [facility] [phone] * (ABNORMAL) PTT [facility] (10/29/2022 3:41 PM CDT) APTT 64.4(H) 23.0 - 38.4 Seconds 10/29/2022 4:28 PM CDT [facility] Comment:Suggested therapeuti c range for full dose I.V. unfractionated heparin therapy for venous thromboembolism is 71 to 109 seconds. Blood BLOOD SPECIMEN / Unknown Venipuncture / Unknown 10/29/2022 3:41 PM CDT 10/29/2022 3:48 PM CDT Good Antunez MD LAB - COAGULATION OR DERABLES Performing Organization Address City/[facility]/ZIP Co de Phone Number [address] [address], [facility] [phone] * TYPE + SCREEN PANEL (10/29/2022 11:19 AM CDT) Antibody Screen NEG 12:14 PM CDT [facility] BLOOD BANK LAB ABO Rh B POS 10/29/2022 12:14 PM CDT [facility] BLOOD BANK LAB Blood Bank BLOOD SPECIMEN / Unknown Venipuncture / Unknown 10/29/2022 11:19 AM CDT 10/29/2022 11:32 AM CDT Jim Walter MD LAB - BLOOD BANK OR DERABLES [facility] BLOOD BANK LAB [address] [place] [address], [facility] [phone] * XR CHEST 1VW PORTABLE (10/29/2022 10:29 AM CDT) Anatomical Region Laterality Modality Chest Radiographic Irene ging 10/29/2022 11:3 8 AM CDT Narrative 10/29/2022 12:59 PM CDT PROCEDURE: ??XR CHEST 1VW PORTABLE, DATE/TIME OF EXAM: ??10/29/2022 10:29 AM, LOCATION ??[facility] INDICATION: R09.02: Hypoxia ADDITIONAL CLINICAL INFORMATION: Ordering Provider Reason For Exam: ??evaluate for hypoxia COMPARISON: Chest x-ray from 10/27/2022 FINDINGS/IMPRESSION: Enteric tube is seen coursing over the diaphragm without visualization of the distal tip. There is no focal consolidation, pleural effusion, or pneumothorax. The cardiomediastinal silhouette is normal. Report dictated by Jacques Russell DO (resident services coordinator). Jacques Ornelas DO have personally reviewed and interpreted this examination/study. > Interpreting Provider: Jacques Cole DO on 10/29/2022 12:59 PM Procedure Note Jacques Cole DO - 10/29/2022 PROCEDURE: XR CHEST 1VW PORTABLE, DATE/TIME OF EXAM: 10/29/2022 10:29AM, LOCATION [facility] INDICATION: R09.02: Hypoxia ADDITIONAL CLINICAL INFORMATION: Ordering Provider Reason For Exam: evaluate for hypoxia COMPARISON: Chest x-ray from 10/27/2022 FINDINGS/IMPRESSION: Enteric tube is seen coursing over the diaphragm without visualizationof the distal tip. There is no focal consolidation, pleural effusion, or pneumothorax. The cardiomediastinal silhouette is normal. Report dictated by Jacques Russell DO (resident services coordinator). Jacques Ornelas DO have personally reviewed and interpreted this examination/study. > Interpreting Provider: Jacques Cole DO on 10/29/2022 12:59 PM Jim Walter MD DIAGNOSTIC IMAGING ORDERABLES * (ABNORMAL) PTT [facility] (10/29/2022 10:04 AM CDT) APTT 60.5(H) 23.0 - 38.4 Seconds 10/29/2022 10:38 AM CDT [facility] Comment:Suggested therapeuti c range for full dose I.V. unfractionated heparin therapy for venous thromboembolism is 71 to 109 seconds. Blood BLOOD SPECIMEN / Unknown Venipuncture / Unknown 10/29/2022 10:04 AM CDT 10/29/2022 10:11 AM CDT Good Antunez MD LAB - COAGULATION OR DERABLES Performing Organization Address [facility] Co de Phone Number [address] [address], [facility] [phone] * PT-INR [facility] (10/29/2022 2:14 AM CDT) Pathologist [facility] PT 13.2 12.1 - 14.8 Seconds 10/29/2022 2:49 AM CDT [facility] INR 1.0 See Comment 10/29/2022 2:49 AM CDT [facility] Comment:The suggested therap eutic range for standard coumadin (warfarin) therapy is an INR of 2.0-3.0. For high-risk patients (Mechanical Mitral Valve Prosthesis, etc.), the suggested prophylactic therapeutic range is an INR of 2.5-3.5. Blood BLOOD SPECIMEN / Unknown Venipuncture / Unknown 10/29/2022 2:14 AM CDT 10/29/2022 2:24 AM CDT Emir Vail MD LAB - COAGULATION OR DERABLES Performing Organization Address [facility]/ZIP Co de Phone Number [address] [address], [place] [phone] * (ABNORMAL) PTT [facility] (10/29/2022 2:14 AM CDT) APTT 60.3(H) 23.0 - 38.4 Seconds 10/29/2022 2:49 AM [facility] Comment:Suggested therapeuti c range for full dose I.V. unfractionated heparin therapy for venous thromboembolism is 71 to 109 seconds. Blood BLOOD SPECIMEN / Unknown Venipuncture / Unknown 10/29/2022 2:14 AM CDT 10/29/2022 2:24 AM CDT Good Antunez MD LAB - COAGULATION OR DERABLES [facility] [address] [place] [address], [facility] [phone] * (ABNORMAL) DIFFERENTIAL MANUAL (10/29/2022 12:10 AM CDT) WBC (corrected for NRBC) 21.3 10? 3 /uL 10/29/2022 1:20 AM [facility] Total Cell Count 100 10/30/19 1:20 AM [facility] Neutrophils Absolute Manual 13.42(H) 1.60 - 7.00 10? 3 /uL 10/29/2022 1:20 AM [facility] Comment:(BANDS+SEGS) x WBC = NEUT # (ANC) Lymphocyte Absolute Manual 4.90(H) 1.10 - 3.90 10? 3 /uL 10/29/2022 1:20 AM [facility] Monocytes Absolute Manual 1.92(H) 0.26 - 1.07 10? 3 /uL 10/29/2022 1:20 AM [facility] Eosinophils Absolute Manual 0.64(H) 0.00 - 0.47 10? 3 /uL 10/29/2022 1:20 AM [facility] Band % Manual 3 0 - 10 % 10/29/2022 1:20 AM [facility] Neutrophil % Manual 60 35 - 70 % 10/29/2022 1:20 AM [facility] Lymphocyte % Manual 23 20 - 43 % 10/29/2022 1:20 AM [facility] Monocytes % Manual 9 5 - 13 % 10/29/2022 1:20 AM [facility] Eosinophils % Manual 3 0 - 6 % 10/29/2022 1:20 AM [facility] Metamyelocyte % Manual 2(H) 0 % 10/29/2022 1:20 AM [facility] nRBC Manual 1(H) 0 /100 WBC 10/29/2022 1:20 AM [facility] Platelet Estimate Increased (A) Adequate 10/29/2022 1:20 AM [facility] Macrocytosis 1+(A) None 10/29/2022 1:20 AM [facility] Polychromasia 1+(A) None 10/29/2022 1:20 AM [facility] Blood BLOOD SPECIMEN / Unknown Venipuncture / Unknown 10/29/2022 12:10 AM CDT 10/29/2022 12:16 AM CDT Emir Vail MD LAB - HEMATOLOGY ORD ERABLES Performing Organization Address [facility] Co de Phone Number [facility] [address] [place] [phone] [phone] * (ABNORMAL) BASIC METABOLIC PANEL (CALCIUM TOTAL) (10/29/2022 12:10 AM CDT) BUN 9 7 - 26 mg/dL 10/29/2022 12:44 AM [facility] Creatinine 0.54(L) 0.56 - 0.96 mg/dL 10/29/2022 12:44 AM [facility] Sodium 138 136 - 145 mmol/L 10/29/2022 12:44 AM [facility] Potassium 4.1 3.5 - 4.5 mmol/L 10/29/2022 12:44 AM [facility] Chloride 106 98 - 107 mmol/L 10/29/2022 12:44 AM [facility] CO2 24 22 - 29 mmol/L 10/29/2022 12:44 AM [facility] Glucose 110 70 - 115 mg/dL 10/29/2022 12:44 AM [facility] Calcium 8.8 8.4 - 10.2 mg/dL 10/29/2022 12:44 AM [facility] Anion Gap 12 8 - 18 10/29/2022 12:44 AM [facility] BUN/Creatinine Ratio 17 7 - 23 10/29/2022 12:44 AM [facility] Osmolality Calculated 285 270 - 300 mOsm/kg 10/29/2022 12:44 AM [facility] eGFR by CKD-EPI >90 >=90 mL/min/1.7 3 m2 10/29/2022 12:44 AM [facility] Blood BLOOD SPECIMEN / Unknown Venipuncture / Unknown 10/29/2022 12:10 AM CDT 10/29/2022 12:17 AM T Emir Vail MD LAB - CHEMISTRY BIBIANA BLACKMAN [facility] Organization Address City/State/ZIP Co de Phone Number [facility] [address] [place] [address], [facility] [phone] * (ABNORMAL) CBC W AUTO DIFFERENTIAL (10/29/2022 12:10 AM T) WBC 21.3(H) 3.5 - 10.5 10? 3 /uL 10/29/2022 12:32 AM [facility] RBC 2.54(L) 3.80 - 5.20 10? 6 /uL 10/29/2022 12:32 AM [facility] Hemoglobin 7.8(L) 12.0 - 15.6 g/dL 10/29/2022 12:32 AM [facility] Hematocrit 24.4(L) 35.0 - 45.0 % 10/29/2022 12:32 AM [facility] MCV 96.1 80.7 - 98.3 fL 10/29/2022 12:32 AM [facility] MCH 30.7 26.7 - 34.0 pg 10/29/2022 12:32 AM [facility] MCHC 32.0 30.8 - 35.9 g/dL 10/29/2022 12:32 AM [facility] RDW-SD 47.9 36.0 - 50.0 fL 10/29/2022 12:32 AM [facility] RDW-CV 14.0 11.2 - 14.8 % 10/29/2022 12:32 AM T [facility] Platelet Count 584(H) 150 - 400 10? 3 /uL 10/29/2022 12:32 AM T [facility] MPV 10.0 9.4 - 12.9 fL 10/29/2022 12:32 AM T [facility] nRBC Absolute 0.13(H) 0 10? 3 /uL 10/29/2022 12:32 AM CDT [facility] nRBC Auto 0.6(H) 0 /100 WBC 10/29/2022 12:32 AM T [facility] Blood BLOOD SPECIMEN / Unknown Venipuncture / Unknown 10/29/2022 12:10 AM CDT 10/29/2022 12:16 AM CDT Emir Vail MD LAB - HEMATOLOGY ORD ERABLES [address] [address], [facility] [phone] * PHOSPHORUS BLOOD (10/29/2022 12:10 AM CDT) Phosphorus 4.8 2.9 - 5.1 mg/dL 10/29/2022 12:44 AM CDT [facility] Blood BLOOD SPECIMEN / Unknown Venipuncture / Unknown 10/29/2022 12:10 AM CDT 10/29/2022 12:17 AM CDT Eimr Vail MD LAB - CHEMISTRY ORDE RABLES [facility] [address] [place] [address], [place] [phone] * MAGNESIUM BLOOD (10/29/2022 12:10 AM CDT) Magnesium 2.0 1.6 - 2.6 mg/dL 10/29/2022 12:44 AM CDT [facility] Blood BLOOD SPECIMEN / Unknown Venipuncture / Unknown 10/29/2022 12:10 AM CDT 10/29/2022 12:17 AM CDT Emir Vail MD LAB - CHEMISTRY BIBIANA BLACKMAN [facility] Organization Address City/State/ZIP Co de Phone Number [facility] [address] [place] [address], [facility] [phone] * XR ABDOMEN KUB (10/28/2022 11:13 PM CDT) Anatomical Region Laterality Modality Abdomen Radiographic Irene ging 10/29/2022 10:0 5 AM CDT Narrative 10/29/2022 12:49 PM CDT PROCEDURE: ??XR ABDOMEN KUB, DATE/TIME OF EXAM: ??10/28/2022 11:13 PM, LOCATION ??[facility] 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 Report dictated by Jacques Russell DO (resident services coordinator). Jacques Ornelas DO have personally reviewed and interpreted this examination/study. 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 Report dictated by Jacques Russell DO (resident services coordinator). Jacques Ornelas DO have personally reviewed and interpreted this examination/study. > Interpreting Provider: Jacques Cole DO on 10/29/2022 12:49 PM Jim Walter MD DIAGNOSTIC IMAGING ORDERABLES * GLUCOSE - POINT OF CARE (10/28/2022 10:54 PM CDT) Glucose WB/POC 105 70 - 115 mg/dL 10/28/2022 10:54 PM CDT [facility] Specimen Type Cap Fingerstick 2022 10:54 PM CDT [facility] Blood BLOOD SPECIMEN / Unknown 10/28/2022 10:54 PM CDT 10/28/2022 10:54 PM CDT Jim Walter MD LAB - POINT OF CARE ORDERABLES Performing Organization Address City/[facility]/ZIP Co de Phone Number [address] [address], [place] [phone] * (ABNORMAL) PTT [facility] (10/28/2022 9:00 PM CDT) APTT 62.1(H) 23.0 - 38.4 Seconds 10/28/2022 9:34 PM CDT [facility] Comment:Suggested therapeuti c range for full dose I.V. unfractionated heparin therapy for venous thromboembolism is 71 to 109 seconds. Blood BLOOD SPECIMEN / Unknown Venipuncture / Unknown 10/28/2022 9:00 PM CDT 10/28/2022 9:11 PM CDT Good Antunez MD LAB - COAGULATION OR DERABLES [address] [address], [place] [phone] * (ABNORMAL) GLUCOSE - POINT OF CARE (10/28/2022 5:26 PM CDT) Glucose WB/POC 118(H) 70 - 115 mg/dL 10/28/2022 5:38 PM CDT [facility] Specimen Type Cap Fingerstick 2022 5:38 PM CDT [facility] Blood BLOOD SPECIMEN / Unknown 10/28/2022 5:26 PM CDT 10/28/2022 5:38 PM CDT Jim Walter MD LAB - POINT OF CARE ORDERABLES Performing Organization Address City/[facility]/ZIP Co de Phone Number [address] [address], [place] [phone] * (ABNORMAL) PTT [facility] (10/28/2022 3:54 PM CDT) [facility] APTT 63.4(H) 23.0 - 38.4 Seconds 10/28/2022 4:32 PM CDT [facility] Comment:Suggested therapeuti c range for full dose I.V. unfractionated heparin therapy for venous thromboembolism is 71 to 109 seconds. Blood BLOOD SPECIMEN / Unknown Venipuncture / Unknown 10/28/2022 3:54 PM CDT 10/28/2022 4:10 PM CDT Good Antunez MD LAB - COAGULATION OR DERABLES Performing Organization Address [facility]/ZIP Co de Phone Number [address] [address], [place] [phone] * (ABNORMAL) GLUCOSE - POINT OF CARE (10/28/2022 12:05 PM CDT) [facility] Glucose WB/POC 125(H) 70 - 115 mg/dL 10/28/2022 12:12 PM CDT [facility] Specimen Type Cap Fingerstick 2022 12:12 PM CDT [facility] Blood BLOOD SPECIMEN / Unknown 10/28/2022 12:05 PM CDT 10/28/2022 12:12 PM CDT Jim Walter MD LAB - POINT OF CARE ORDERABLES Performing Organization Address [facility]/ZIP Co de Phone Number [address] [address], [place] [phone] * (ABNORMAL) PTT [facility] (10/28/2022 9:20 AM CDT) [facility] APTT 72.8(H) 23.0 - 38.4 Seconds 10/28/2022 9:53 AM CDT [facility] Comment:Suggested therapeuti c range for full dose I.V. unfractionated heparin therapy for venous thromboembolism is 71 to 109 seconds. Blood BLOOD SPECIMEN / Unknown Venipuncture / Unknown 10/28/2022 9:20 AM CDT 10/28/2022 9:27 AM CDT Good Antunez MD LAB - COAGULATION OR DERABLES Performing Organization Address City/[facility]/ZIP Co de Phone Number [address] [address], [facility] [phone] * VANCOMYCIN LEVEL TROUGH (10/28/2022 9:20 AM CDT) Pathologist [facility] Vancomycin Trough 16.5 10.0 - 20.0 ug/mL 10/28/2022 10:29 AM CDT [facility] Blood BLOOD SPECIMEN / Unknown Venipuncture / Unknown 10/28/2022 9:20 AM CDT 10/28/2022 9:25 AM CDT Narrative [facility] - 10/28/2022 10:29 AM CDT See institution protocol. Dary Garvey MD LAB - CHEMISTRY ORDE HIRAL Performing Organization Address [facility]/ZIP Co de Phone Number [address] [address], [facility] [phone] * CT HEAD WO CONTRAST (10/28/2022 5:27 AM CDT) Anatomical Region Laterality Modality Head Computed Tomogra phy 10/28/2022 7:57 AM CDT Impressions 10/28/2022 9:15 AM CDT IMPRESSION: 1. Evolving right MCA subacute infarct status post decompressive craniectomy. Grossly unchanged right frontotemporal subdural hemorrhage. Grossly unchanged gyriform hyperdensity in the infarcted area may represent subarachnoid hemorrhage. No midline shift. Unchanged mildly dilated ventricles may represent mild hydrocephalus. 2. Unchanged small focus of hypoattenuation in the left frontal lobe likely represents additional subacute infarct. The report is dictated by Kayla Stevenson MD (resident services coordinator) 1 I, Lonnie Rae MD have personally reviewed and interpreted this examination/study. > Interpreting Provider: Lonnie Rae MD on 10/28/2022 9:15 AM Narrative 10/28/2022 9:15 AM CDT PROCEDURE: ??CT HEAD WO CONTRAST, DATE/TIME OF EXAM: ??10/28/2022 5:28 AM, LOCATION ??[facility] INDICATION: Z91.89: At high risk for bleeding after thrombolytic therapy monitor for hemorrhagic bleed given heparin use in massive stroke EXAMINATION: Computed tomography (CT) of the head without contrast TECHNIQUE: CT of the head was performed without contrast according to standard protocol. CT dose reduction technique was used, including Automated Exposure Control. COMPARISON: CT head without contrast dated 10/27/2022 FINDINGS: Redemonstrated are postoperative changes of decompressive right frontoparietotemporal craniectomy, with multiple overlying scalp carla. Redemonstrated slightly heterogeneous subdural hemorrhage along the right frontotemporal convexity measuring 9 mm in the maximal thickness (series 3 image 17), without significant change compared to prior study. Redemonstrated evolving right MCA infarct. There is moderate mass effect on the right lateral ventricle. There is again associated mild external herniation through the craniectomy site. Unchanged gyriform hyperdensity within the infarcted area which may represent laminar necrosis. Small volume of subarachnoid hemorrhage cannot be completely ruled out. No new acute intracranial hemorrhage. The ventricles are mildly dilated compared to 10/19/2022, otherwise unchanged compared to 10/27/2022. The basal cisterns are patent. No midline shift is seen. Unchanged small focus of hypoattenuation in the left frontal lobe (series 3 image 20) likely represents a small subacute infarct. Partially visualized nasogastric tube. The visualized portions of the orbits, paranasal sinuses, and mastoids appear normal. No acute calvarial fracture is identified. Procedure Note Lonnie Rae MD - 10/28/2022 PROCEDURE: CT HEAD WO CONTRAST, DATE/TIME OF EXAM: 10/28/2022 5:28 AM, LOCATION [facility] INDICATION: Z91.89: At high risk for bleeding after thrombolytic therapy monitor for hemorrhagic bleed given heparin use in massive stroke EXAMINATION: Computed tomography (CT) of the head without contrast TECHNIQUE: CT of the head was performed without contrast according to standard protocol. CT dose reduction technique was used, including Automated Exposure Control. COMPARISON: CT head without contrast dated 10/27/2022 FINDINGS: Redemonstrated are postoperative changes of decompressive right frontoparietotemporal craniectomy, with multiple overlying scalpstaples. Redemonstrated slightly heterogeneous subdural hemorrhage along theright frontotemporal convexity measuring 9 mm in the maximal thickness (series3 image 17), without significant change compared to prior study. Redemonstrated evolving right MCA infarct. There is moderate mass effecton the right lateral ventricle. There is again associated mild external herniation through the craniectomy site. Unchanged gyriform hyperdensity within the infarcted area which may represent laminar necrosis. Small volume of subarachnoid hemorrhage cannot be completely ruled out. No new acute intracranial hemorrhage. The ventricles are mildly dilatedcompared to 10/19/2022, otherwise unchanged compared to 10/27/2022. The basalcisterns are patent. No midline shift is seen. Unchanged small focus of hypoattenuation in the left frontal lobe (series 3 image 20) likely represents a small subacute infarct. Partially visualized nasogastric tube. The visualized portions of the orbits, paranasal sinuses, and mastoids appear normal. No acute calvarial fracture is identified. IMPRESSION: 1. Evolving right MCA subacute infarct status post decompressive craniectomy. Grossly unchanged right frontotemporal subdural hemorrhage. Grossly unchanged gyriform hyperdensity in the infarcted area mayrepresent subarachnoid hemorrhage. No midline shift. Unchanged mildly dilated ventricles may represent mild hydrocephalus. 2. Unchanged small focus of hypoattenuation in the left frontal lobelikely represents additional subacute infarct. The report is dictated by Kayla Stevenson MD (resident services coordinator) 1 I, Lonnie Rae MD have personally reviewed and interpreted this examination/study. > Interpreting Provider: Lonnie Rae MD on 10/28/2022 9:15 AM Emri Vail MD CT ORDERABLES * (ABNORMAL) GLUCOSE - POINT OF CARE (10/28/2022 4:52 AM CDT) Glucose WB/POC 151(H) 70 - 115 mg/dL 10/28/2022 4:57 AM CDT [facility] Specimen Type Cap Fingerstick 2022 4:57 AM CDT [facility] Blood BLOOD SPECIMEN / Unknown 10/28/2022 4:52 AM CDT 10/28/2022 4:57 AM CDT Jim Walter MD LAB - POINT OF CARE ORDERABLES [facility] [address] [place] [address], [facility] [phone] * XR ABDOMEN KUB PORTABLE (10/28/2022 2:08 AM CDT) Anatomical Region Laterality Modality Abdomen Radiographic Irene ging 10/28/2022 10:4 1 AM CDT Narrative 10/28/2022 12:24 PM CDT EXAMINATION: XR ABDOMEN KUB PORTABLE HISTORY: 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 FINDINGS/IMPRESSION: Enteric tube courses below the diaphragm with the distal tip superimposing the antropyloric region. Report dictated by Martell Shetty MD (resident services coordinator). Jacques Ornelas DO have personally reviewed and interpreted this examination/study. 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 FINDINGS/IMPRESSION: Enteric tube courses below the diaphragm with the distal tipsuperimposing the antropyloric region. Report dictated by Martell Shetty MD (resident services coordinator). Jacques Ornelas DO have personally reviewed and interpreted this examination/study. > Interpreting Provider: Jacques Cole DO on 10/28/2022 12:24 PM Jim Walter MD DIAGNOSTIC IMAGING ORDERABLES * (ABNORMAL) PTT [facility] (10/28/2022 1:25 AM CDT) APTT 81.6(H) 23.0 - 38.4 Seconds 10/28/2022 1:55 AM CDT [facility] Comment:Suggested therapeuti c range for full dose I.V. unfractionated heparin therapy for venous thromboembolism is 71 to 109 seconds. Blood BLOOD SPECIMEN / Unknown Venipuncture / Unknown 10/28/2022 1:25 AM CDT 10/28/2022 1:31 AM CDT Good Antunez MD LAB - COAGULATION OR DERABLES Performing Organization Address [facility] Co de Phone Number [facility] [address] [place] [address], [facility] [phone] * PT-INR [facility] (10/28/2022 1:25 AM CDT) PT 13.6 12.1 - 14.8 Seconds 10/28/2022 1:55 AM T [facility] INR 1.0 See Comment 10/28/2022 1:55 AM T [facility] Comment:The suggested therap eutic range for standard coumadin (warfarin) therapy is an INR of 2.0-3.0. For high-risk patients (Mechanical Mitral Valve Prosthesis, etc.), the suggested prophylactic therapeutic range is an INR of 2.5-3.5. Blood BLOOD SPECIMEN / Unknown Venipuncture / Unknown 10/28/2022 1:25 AM CDT 10/28/2022 1:31 AM CDT Emir Vail MD LAB - COAGULATION OR DERABLES Performing Organization Address City/[facility] Co de Phone Number [facility] [address] [place] [address], [facility] [phone] * (ABNORMAL) BASIC METABOLIC PANEL (CALCIUM TOTAL) (10/28/2022 1:25 AM CDT) BUN 9 7 - 26 mg/dL 10/28/2022 1:57 AM CDT [facility] Creatinine 0.54(L) 0.56 - 0.96 mg/dL 10/28/2022 1:57 AM CDT [facility] Sodium 138 136 - 145 mmol/L 10/28/2022 1:57 AM [facility] Potassium 3.5 3.5 - 4.5 mmol/L 10/28/2022 1:57 AM [facility] Chloride 106 98 - 107 mmol/L 10/28/2022 1:57 AM [facility] CO2 26 22 - 29 mmol/L 10/28/2022 1:57 AM [facility] Glucose 134(H) 70 - 115 mg/dL 10/28/2022 1:57 AM [facility] Calcium 8.6 8.4 - 10.2 mg/dL 10/28/2022 1:57 AM [facility] Anion Gap 10 8 - 18 10/28/2022 1:57 AM [facility] BUN/Creatinine Ratio 17 7 - 10/28/2022 1:57 AM [facility] Osmolality Calculated 287 270 - 300 mOsm/kg 10/28/2022 1:57 AM [facility] eGFR by CKD-EPI >90 >=90 mL/min/1.7 3 m2 10/28/2022 1:57 AM [facility] Blood BLOOD SPECIMEN / Unknown Venipuncture / Unknown 10/28/2022 1:25 AM CDT 10/28/2022 1:31 AM CDT Emir Vail MD LAB - CHEMISTRY BIBIANA BLACKMAN [facility] [address] [place] [address], [facility] [phone] * PHOSPHORUS BLOOD (10/28/2022 1:25 AM CDT) Phosphorus 3.9 2.9 - 5.1 mg/dL 10/28/2022 1:57 AM T [facility] Blood BLOOD SPECIMEN / Unknown Venipuncture / Unknown 10/28/2022 1:25 AM CDT 10/28/2022 1:31 AM CDT Emir Vail MD LAB - CHEMISTRY BIBIANA BLACKMAN [facility] [address] [place] [address], [place] [phone] * MAGNESIUM BLOOD (10/28/2022 1:25 AM CDT) [facility] Magnesium 2.0 1.6 - 2.6 mg/dL 10/28/2022 1:57 AM CDT [facility] Blood BLOOD SPECIMEN / Unknown Venipuncture / Unknown 10/28/2022 1:25 AM CDT 10/28/2022 1:31 AM CDT Emir Vail MD LAB - CHEMISTRY BIBIANA BLACKMAN [address] [address], [place] [phone] * (ABNORMAL) GLUCOSE - POINT OF CARE (10/28/2022 1:24 AM CDT) [facility] Glucose WB/POC 143(H) 70 - 115 mg/dL 10/28/2022 1:29 AM CDT [facility] Specimen Type Cap Fingerstick 2022 1:29 AM CDT [facility] Blood BLOOD SPECIMEN / Unknown 10/28/2022 1:24 AM CDT 10/28/2022 1:29 AM CDT Jim Walter MD LAB - POINT OF CARE ORDERABLES [address] [address], [place] [phone] * (ABNORMAL) DIFFERENTIAL MANUAL (10/27/2022 8:29 PM CDT) [facility] WBC (corrected for NRBC) 21.1 10? 3 /uL 10/27/2022 9:20 PM CDT [facility] Total Cell Count 100 10/28/19 9:20 PM CDT [facility] Neutrophils Absolute Manual 12.87(H) 1.60 - 7.00 10? 3 /uL 10/27/2022 9:20 PM CDT [facility] Comment:(BANDS+SEGS) x WBC = NEUT # (ANC) Lymphocyte Absolute Manual 5.91(H) 1.10 - 3.90 10? 3 /uL 10/27/2022 9:20 PM [facility] Monocytes Absolute Manual 1.48(H) 0.26 - 1.07 10? 3 /uL 10/27/2022 9:20 PM [facility] Eosinophils Absolute Manual 0.42 0.00 - 0.47 10? 3 /uL 10/27/2022 9:20 PM [facility] Band % Manual 1 0 - 10 % 10/27/2022 9:20 PM [facility] Neutrophil % Manual 60 35 - 70 % 10/27/2022 9:20 PM [facility] Lymphocyte % Manual 28 20 - 43 % 10/27/2022 9:20 PM [facility] Monocytes % Manual 7 5 - 13 % 10/27/2022 9:20 PM [facility] Eosinophils % Manual 2 0 - 6 % 10/27/2022 9:20 PM [facility] Atypical Lymphocyte % Manual 1(H) 0 % 10/27/2022 9:20 PM [facility] Metamyelocyte % Manual 1(H) 0 % 10/27/2022 9:20 PM [facility] nRBC Manual 2(H) 0 /100 WBC 10/27/2022 9:20 PM [facility] Platelet Estimate Slightly Increased(A ) Adequate 10/27/2022 9:20 PM [facility] Anisocytosis Occasional( A) None 10/27/2022 9:20 PM [facility] Polychromasia Few(A) None 10/27/2022 9:20 PM [facility] Ovalocytes Occasional( A) None 10/27/2022 9:20 PM [facility] Ransom Cells Occasional( A) None 10/27/2022 9:20 PM [facility] Blood BLOOD SPECIMEN / Unknown Venipuncture / Unknown 10/27/2022 8:29 PM CDT 10/27/2022 8:36 PM CDT Jim Walter MD LAB - HEMATOLOGY OR DERABLES [facility] [address] [place] [address], [facility] [phone] * (ABNORMAL) CBC W AUTO DIFFERENTIAL (10/27/2022 8:29 PM CDT) WBC 21.1(H) 3.5 - 10.5 10? 3 /uL 10/27/2022 8:54 PM CDT [facility] RBC 2.52(L) 3.80 - 5.20 10? 6 /uL 10/27/2022 8:54 PM [facility] Hemoglobin 7.6(L) 12.0 - 15.6 g/dL 10/27/2022 8:54 PM [facility] Hematocrit 24.2(L) 35.0 - 45.0 % 10/27/2022 8:54 PM [facility] MCV 96.0 80.7 - 98.3 fL 10/27/2022 8:54 PM [facility] MCH 30.2 26.7 - 34.0 pg 10/27/2022 8:54 PM [facility] MCHC 31.4 30.8 - 35.9 g/dL 10/27/2022 8:54 PM [facility] RDW-SD 47.9 36.0 - 50.0 fL 10/27/2022 8:54 PM [facility] RDW-CV 13.8 11.2 - 14.8 % 10/27/2022 8:54 PM [facility] Platelet Count 486(H) 150 - 400 10? 3 /uL 10/27/2022 8:54 PM [facility] MPV 10.6 9.4 - 12.9 fL 10/27/2022 8:54 PM [facility] nRBC Absolute 0.11(H) 0 10? 3 /uL 10/27/2022 8:54 PM [facility] nRBC Auto 0.5(H) 0 /100 WBC 10/27/2022 8:54 PM [facility] Blood BLOOD SPECIMEN / Unknown Venipuncture / Unknown 10/27/2022 8:29 PM CDT 10/27/2022 8:36 PM CDT Jim Walter MD LAB - HEMATOLOGY OR DERABLES Performing Organization Address [facility]/ZIP Co de Phone Number [address] [address], [facility] [phone] * (ABNORMAL) PTT [facility] (10/27/2022 6:55 PM CDT) APTT 96.4(H) 23.0 - 38.4 Seconds 10/27/2022 7:28 PM CDT [facility] Comment:Suggested therapeuti c range for full dose I.V. unfractionated heparin therapy for venous thromboembolism is 71 to 109 seconds. Blood BLOOD SPECIMEN / Unknown Venipuncture / Unknown 10/27/2022 6:55 PM CDT 10/27/2022 7:06 PM CDT Jim Walter MD LAB - COAGULATION O RDERABLES Performing Organization Address [facility] Co de Phone Number [address] [address], [facility] [phone] * ANTITHROMBIN III ACTIVITY (10/27/2022 6:55 PM CDT) Pathologist [facility] Antithrombin III Activity 91.0 80.0 - 120.0 % 10/27/2022 7:42 PM CDT [facility] Blood BLOOD SPECIMEN / Unknown Venipuncture / Unknown 10/27/2022 6:55 PM CDT 10/27/2022 7:06 PM CDT Narrative [facility] - 10/27/2022 7:42 PM CDT Thrombin inhibitors (i.e., hirudin, argatroban...) present in the sample to be tested may lead to an over-estimation of the AT level. Shahbaz Bowen MD LAB - COAGULATION OR DERABLES Performing Organization Address [facility]/ZIP Co de Phone Number [address] [address], [facility] [phone] * (ABNORMAL) GLUCOSE - POINT OF CARE (10/27/2022 4:56 PM CDT) Glucose WB/POC 143(H) 70 - 115 mg/dL 10/27/2022 4:57 PM CDT [facility] Specimen Type Cap Fingerstick 2022 4:57 PM CDT [facility] Blood BLOOD SPECIMEN / Unknown 10/27/2022 4:56 PM CDT 10/27/2022 4:57 PM CDT Jim Walter MD LAB - POINT OF CARE ORDERABLES [facility] [address] [place] [address], [facility] [phone] * CULTURE URINE (10/27/2022 12:08 PM CDT) Pathologist [facility] Culture Urine No growth (<100 CFU/mL) ROSELIA 10/28/2022 10:36 PM CDT [facility] Urine URINE SPECIMEN OBTAINED BY CLEAN CATCH PROCEDURE / Unknown Collection / Unknown 10/27/2022 12:08 PM CDT 10/27/2022 12:17 PM CDT Emir Vail MD LAB - MICROBIOLOGY O RDERABLES [facility] [address] [place], [place] [address] [phone] * (ABNORMAL) URINALYSIS REFLEX MICROSCOPIC REFLEX CULTURE (10/27/2022 12:08 PM CDT) Color UA Yellow Straw, Yellow 10/27/2022 1:14 PM CDT [facility] Clarity UA Slt Cloudy(A) Clear 10/27/2022 1:14 PM CDT [facility] Specific Botkins UA 1.018 1.005 - 1.030 10/27/2022 1:14 PM CDT [facility] pH UA 6.0 5.0 - 8.0 pH 10/27/2022 1:14 PM CDT [facility] Protein UA Negative Negative 10/27/2022 1:14 PM CDT [facility] Glucose UA Negative Negative 10/27/2022 1:14 PM CDT [facility] Ketone UA Negative Negative 10/27/2022 1:14 PM CDT [facility] Bilirubin UA Negative Negative 10/27/2022 1:14 PM CDT [facility] Blood UA Negative Negative 10/27/2022 1:14 PM CDT [facility] Nitrite UA Negative Negative 10/27/2022 1:14 PM CDT [facility] Leukocyte Esterase Negative Negative 10/27/2022 1:14 PM CDT [facility] Urobilinogen UA Negative Negative mg/dL 10/27/2022 1:14 PM CDT [facility] Comment UA Microscopic not indicated. 10/27/2022 1:14 PM CDT [facility] Urine URINE SPECIMEN OBTAINED BY CLEAN CATCH PROCEDURE / Unknown Collection / Unknown 10/27/2022 12:08 PM CDT 10/27/2022 12:17 PM CDT Narrative [facility] - 10/27/2022 1:14 PM CDT Emir Vail MD LAB - URINALYSIS ORD ERABLES Performing Organization Address [facility]/State/ZIP Co de Phone Number [facility] [address] [place], [place] [phone], [facility] [phone] * MYCOPLASMA PNEUMONIAE AB IGM (10/27/2022 11:58 AM CDT) Mycoplasma Antibody IgM 0.09 <=0.76 U/L 10/29/2022 11:24 PM CDT [facility] ([facility]) Comment: INTERPRETIVE INFORMATION: ??Mycoplasma pneumoniae Ab, IgM [...] more ?than 12 months post-infection. Performed By: [facility] [address] [place] [address] Microfilm Mounter: Boo Bond MD, PhD CLIA Number: [id number] Blood BLOOD SPECIMEN / Unknown Venipuncture / Unknown 10/27/2022 11:58 AM CDT 10/27/2022 12:17 PM CDT Emir Vail MD LAB - SEROLOGY ORDER NISSA [facility] ([facility]) [address] [place] [address] * MYCOPLASMA PNEUMONIAE AB IGG (10/27/2022 11:58 AM CDT) Pathologist [facility] Mycoplasma Antibody IgG 0.05 <=0.09 U/L 10/29/2022 11:24 PM CDT [facility] ([facility]) Comment: INTERPRETIVE INFORMATION: ??Mycoplasma pneumoniae Ab, IgG [...] other is below 0.20 U/L. Performed By: [facility] [address] [place] [address] Microfilm Mounter: Boo Bond MD, PhD CLIA Number: [id number] Blood BLOOD SPECIMEN / Unknown Venipuncture / Unknown 10/27/2022 11:58 AM CDT 10/27/2022 12:16 PM CDT Emir Vail MD LAB - SEROLOGY ORDER NISSA Performing Organization Address City/[facility]/ZIP Co de Phone Number [facility] ([facility]) [address] [place] [address] * CHLAMYDIA ANTIBODY IGG/IGM PANEL (10/27/2022 11:58 AM CDT) [facility] C Pneumoniae Antibody IgG Titer <1:64 <1:64 10/29/2022 8:32 PM CDT [facility] ([facility]) Chlamydia Pneumoniae Antibody IgM Titer <1:20 <1:20 10/29/2022 8:32 PM CDT [facility] ([facility]) Chlamydia trachomatis Antibody IgM Titer <1:20 <1:20 10/29/2022 8:32 PM CDT [facility] ([facility]) Chlamydia psittacI Antibody IgM Titer <1:20 <1:20 10/29/2022 8:32 PM CDT [facility] ([facility]) Chlamydia trachomatis Antibody IgG Titer <1:64 <1:64 10/29/2022 8:32 PM CDT [facility] ([facility]) Chlamydia psittacI Antibody IgG Titer <1:64 <1:64 10/29/2022 8:32 PM CDT [facility] ([facility]) Comment: INTERPRETIVE INFORMATION: C. psittaci IgG Titer [...] developed and its performance characteristics determined by [facility]. It has not been cleared or approved by the [place] Food and Drug Administration. This test was performed in a CLIA certified laboratory and is intended for clinical purposes. Performed By: [facility] [address] [place] [id number] Microfilm Mounter: Boo Bond MD, PhD CLIA Number: [id number] Blood BLOOD SPECIMEN / Unknown Venipuncture / Unknown 10/27/2022 11:58 AM CDT 10/27/2022 12:17 PM CDT Emir Vail MD LAB - CHEMISTRY BIBIANA BLACKMAN [facility]) [address] [phone], [facility] * Q FEVER IGG/IGM AB PANEL RFLX TITER (10/27/2022 11:58 AM CDT) [facility] Coxiella burnetii Antibody IgG Phase 1 Screen Negative Negative 10/31/2022 12:29 AM CDT [facility] ([facility]) Comment: INTERPRETIVE INFORMATION: C. Burnetii Abs, IgG [...] 2 Screen Negative Negative 10/31/2022 12:29 AM CDT [facility] ([facility]) Comment: INTERPRETIVE INFORMATION: C. Burnetii Abs, IgG [...] 1 Screen Negative Negative 10/31/2022 12:29 AM [facility] ([facility]) Comment: Coxiella burnetii (Q-Fever) Antibody IgM, Phase [...] 2 Screen Negative Negative 10/31/2022 12:29 AM [facility] ([facility]) Comment: Coxiella burnetii (Q-Fever) Antibody IgM, Phase [...] acute infection or during convalescence. Performed By: [facility] [address] [place] [address] Microfilm Mounter: Boo Bond MD, PhD CLIA Number: [id number] Blood BLOOD SPECIMEN / Unknown Venipuncture / Unknown 10/27/2022 11:58 AM CDT 10/27/2022 12:16 PM CDT Emir Vail MD LAB - SEROLOGY ORDER NISSA Performing Organization Address City/[facility]/ZIP Co de Phone Number [facility]) [address] [place] [address] * BARTONELLA SPECIES PCR (10/27/2022 11:58 AM CDT) Bartonella Source Plasma 023 3:38 PM CDT [facility] ([facility]) Bartonella Species by PCR Not Detected 2022 3:38 PM CDT [facility]) Comment: NOT DETECTED - A negative result does not rule out the presence of PCR inhibitors in the patient specimen or assay specific nucleic acid in concentrations below the level of detection by the assay. INTERPRETIVE INFORMATION: Bartonella Species Detection by PCR This test was developed and its performance characteristics determined by [facility]. It has not been cleared or approved by the [place] Food and Drug Administration. This test was performed in a CLIA certified laboratory and is intended for clinical purposes. Performed By: [facility] [address] [place] [address] Microfilm Mounter: Boo Bond MD, PhD CLIA Number: [id number] Blood BLOOD SPECIMEN / Unknown Venipuncture / Unknown 10/27/2022 11:58 AM CDT 10/27/2022 12:16 PM CDT Emir Vail MD LAB - MICROBIOLOGY O RDERABLES [facility] ([facility]) [address] [place] [address] * BARTONELLA HENSELAE ANTIBODY IGG (10/27/2022 11:58 AM CDT) [facility] Bartonella henselae Antibody IgG <1:64 10/29/2022 8:33 PM CDT [email or web address] ([facility]) Comment: INTERPRETIVE INFORMATION: Bartonella henselae Ab, IgG [...] developed and its performance characteristics determined by [facility]. It has not been cleared or approved by the US Food and Drug Administration. This test was performed in a CLIA certified laboratory and is intended for clinical purposes. Performed By: [facility] [address] [place] [id number] Microfilm Mounter: Boo Bond MD, PhD CLIA Number: [id number] Blood BLOOD SPECIMEN / Unknown Venipuncture / Unknown 10/27/2022 11:58 AM CDT 10/27/2022 12:16 PM CDT Emir Vail MD LAB - SEROLOGY ORDER NISSA [facility]) [address] * BARTONELLA HENSELAE ANTIBODY IGM (10/27/2022 11:58 AM CDT) Bartonella henselae Antibody IgM < 1:16 10/29/2022 8:33 PM CDT [facility] ([facility]) Comment: INTERPRETIVE INFORMATION: Bartonella henselae Antibody, IgM [...] developed and its performance characteristics determined by [facility]. It has not been cleared or approved by the US Food and Drug Administration. This test was performed in a CLIA certified laboratory and is intended for clinical purposes. Performed By: [facility] [address] [place] [address] Microfilm Mounter: Boo Bond MD, PhD CLIA Number: [id number] Blood BLOOD SPECIMEN / Unknown Venipuncture / Unknown 10/27/2022 11:58 AM CDT 10/27/2022 12:16 PM CDT Emir Vail MD LAB - SEROLOGY ORDER NISSA [facility] ([facility]) [address] * CULTURE BLOOD AFB (10/27/2022 11:58 AM CDT) Culture No acid-fast bacillus isolated 12/04/2022 6:56 AM CDT [facility] Blood PERIPHERAL BLOOD / Unknown Venipuncture / Unknown 10/27/2022 11:58 AM CDT 10/27/2022 12:13 PM CDT Emir Vail MD LAB - MICROBIOLOGY O RDERABLES Performing Organization Address City/[facility]/ZIP Co de Phone Number [facility] [address] [place] [address] [phone] * CULTURE BLOOD FUNGUS (10/27/2022 11:58 AM CDT) Culture No fungus isolated ROSELIA 12/04/2022 6:38 AM CDT [facility] Blood PERIPHERAL BLOOD / Unknown Venipuncture / Unknown 10/27/2022 11:58 AM CDT 10/27/2022 12:13 PM CDT Emir Vail MD LAB - MICROBIOLOGY O RDERABLES Performing Organization Address City/[facility]/ZIP Co de Phone Number [facility] [address] [place] [phone] [place] [address] * (ABNORMAL) PTT [facility] (10/27/2022 11:58 AM CDT) APTT 44.7(H) 23.0 - 38.4 Seconds 10/27/2022 1:19 PM CDT [facility] Comment:Suggested therapeuti c range for full dose I.V. unfractionated heparin therapy for venous thromboembolism is 71 to 109 seconds. Blood BLOOD SPECIMEN / Unknown Venipuncture / Unknown 10/27/2022 11:58 AM CDT 10/27/2022 12:39 PM CDT Emir Vail MD LAB - COAGULATION OR DERABLES [address] [address], [facility] [phone] * (ABNORMAL) GLUCOSE - POINT OF CARE (10/27/2022 11:13 AM CDT) Glucose WB/POC 140(H) 70 - 115 mg/dL 10/27/2022 11:16 AM CDT [facility] Specimen Type Cap Fingerstick 2022 11:16 AM CDT [facility] Blood BLOOD SPECIMEN / Unknown 10/27/2022 11:13 AM CDT 10/27/2022 11:16 AM CDT Emir Vail MD LAB - POINT OF CARE ORDERABLES Performing Organization Address City/[facility]/ZIP Co de Phone Number [address] [address], [facility] [phone] * XR CHEST 1VW PORTABLE (10/27/2022 10:19 AM CDT) Anatomical Region Laterality Modality Chest Radiographic Irene ging 10/27/2022 1:44 PM CDT Narrative 10/27/2022 2:58 PM CDT PROCEDURE: ??XR CHEST 1VW PORTABLE, DATE/TIME OF EXAM: ??10/27/2022 10:19 AM, LOCATION ??[facility] INDICATION: D72.829: Leukocytosis, unspecified type ADDITIONAL CLINICAL INFORMATION: Ordering Provider Reason For Exam: ??any concern for pneumonia COMPARISON: Chest radiograph dated 10/25/2022. FINDINGS/IMPRESSION: Enteric tube courses below the diaphragm and out of the jvzoi-bl-aclw. RUQ surgical clips are present. No focal consolidation. No pleural effusion or pneumothorax. The cardiomediastinal silhouette is normal. Report dictated by Agnes Olmos DO (resident services coordinator). IPepe, MD have personally reviewed and interpreted this examination/study. > Interpreting Provider: Pepe Gonzalez MD on 10/27/2022 2:58 PM Procedure Note Pepe Gonzalez MD - 10/27/2022 PROCEDURE: XR CHEST 1VW PORTABLE, DATE/TIME OF EXAM: 10/27/2022 10:19AM, LOCATION [facility] INDICATION: D72.829: Leukocytosis, unspecified type ADDITIONAL CLINICAL INFORMATION: Ordering Provider Reason For Exam: any concern for pneumonia COMPARISON: Chest radiograph dated 10/25/2022. FINDINGS/IMPRESSION: Enteric tube courses below the diaphragm and out of the [id number] surgical clips are present. No focal consolidation. No pleural effusion or pneumothorax. The cardiomediastinal silhouette is normal. Report dictated by Agnes Olmos DO (resident services coordinator). Pepe Ornelas MD have personally reviewed and interpreted this examination/study. > Interpreting Provider: Pepe Gonzalez MD on 10/27/2022 2:58 PM Emir Vail MD DIAGNOSTIC IMAGING O RDERABLES * (ABNORMAL) GLUCOSE - POINT OF CARE (10/27/2022 6:33 AM CDT) Glucose WB/POC 128(H) 70 - 115 mg/dL 10/27/2022 6:39 AM CDT [facility] Specimen Type Cap Fingerstick 2022 6:39 AM CDT [facility] Blood BLOOD SPECIMEN / Unknown 10/27/2022 6:33 AM CDT 10/27/2022 6:39 AM CDT Emir Vail MD LAB - POINT OF CARE ORDERABLES [facility] [address], [place] [address], [facility] [phone] * (ABNORMAL) PTT [facility] (10/27/2022 6:08 AM CDT) APTT 58.6(H) 23.0 - 38.4 Seconds 10/27/2022 6:37 AM CDT [facility] Comment:Suggested therapeuti c range for full dose I.V. unfractionated heparin therapy for venous thromboembolism is 71 to 109 seconds. Blood BLOOD SPECIMEN / Unknown Venipuncture / Unknown 10/27/2022 6:08 AM CDT 10/27/2022 6:14 AM CDT Emir Vail MD LAB - COAGULATION OR DERABLES Performing Organization Address [facility] Co de Phone Number [facility] [address] [place] [address], [facility] [phone] * PT-INR [facility] (10/27/2022 6:08 AM CDT) PT 13.7 12.1 - 14.8 Seconds 10/27/2022 6:36 AM CDT [facility] INR 1.1 See Comment 10/27/2022 6:36 AM CDT [facility] Comment:The suggested therap eutic range for standard coumadin (warfarin) therapy is an INR of 2.0-3.0. For high-risk patients (Mechanical Mitral Valve Prosthesis, etc.), the suggested prophylactic therapeutic range is an INR of 2.5-3.5. Blood BLOOD SPECIMEN / Unknown Venipuncture / Unknown 10/27/2022 6:08 AM CDT 10/27/2022 6:14 AM CDT Emir Vail MD LAB - COAGULATION OR DERABLES Performing Organization Address [facility] Co de Phone Number [facility] [address] [place] [address], [facility] [phone] * CT HEAD WO CONTRAST (10/27/2022 5:54 AM CDT) Anatomical Region Laterality Modality Head Computed Tomogra phy 10/27/2022 11:5 4 AM CDT Impressions 10/27/2022 12:10 PM CDT IMPRESSION: 1. Redemonstration of evolving right MCA subacute infarct, status post right decompressive craniectomy. The extra-axial hematoma underlying the craniectomy site and subarachnoid hemorrhage in the right cerebral sulci are grossly unchanged. Mass effect on the right lateral ventricle is unchanged. No significant midline shift. 2. Small focus of likely a subacute infarct in the left frontal lobe is unchanged. 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 COMPARISON: 10/26/2022. FINDINGS: Redemonstration of postoperative changes of decompressive right cranioplasty. An evolving extra-axial hematoma is again noted in the craniotomy site. Small volume subarachnoid hemorrhage is is again seen in the right cerebral sulci. Again noted is herniation of the intracranial contents through the craniectomy defect. Again demonstrated is an evolving subacute infarct in the nearly entire right MCA distribution, grossly unchanged. There is persistent mass effect on the lateral ventricle. A small hypoattenuating focus is again noted in the left frontal lobe, which may represent a small subacute infarct. The ventricles are stable. The basal cisterns are patent. No midline shift. The scott-white matter differentiation is normal. The visualized portions of the orbits, paranasal sinuses, and mastoids appear normal. No acute calvarial fracture is identified. 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 COMPARISON: 10/26/2022. FINDINGS: Redemonstration of postoperative changes of decompressive right cranioplasty. An evolving extra-axial hematoma is again noted in the craniotomy site. Small volume subarachnoid hemorrhage is is again seenin the right cerebral sulci. Again noted is herniation of the intracranial contents through the craniectomy defect. Again demonstrated is an evolving subacute infarct in the nearly entire right MCA distribution, grossly unchanged. There is persistent masseffect on the lateral ventricle. A small hypoattenuating focus is again notedin the left frontal lobe, which may represent a small subacute infarct. The ventricles are stable. The basal cisterns are patent. No midlineshift. The scott-white matter differentiation is normal. The visualized portions of the orbits, paranasal sinuses, and mastoids appear normal. No acute calvarial fracture is identified. IMPRESSION: 1. Redemonstration of evolving right MCA subacute infarct, status post right decompressive craniectomy. The extra-axial hematoma underlying the craniectomy site and subarachnoid hemorrhage in the right cerebral sulci are grossly unchanged. Mass effect on the right lateral ventricle is unchanged. No significant midline shift. 2. Small focus of likely a subacute infarct in the left frontal lobe is unchanged. > Interpreting Provider: Lonnie Rae MD on 10/27/2022 12:10 PM Emir Vail MD CT ORDERABLES * (ABNORMAL) DIFFERENTIAL MANUAL (10/27/2022 12:54 AM CDT) WBC (corrected for NRBC) 19.5 10? 3 /uL 10/27/2022 4:31 AM CDT [facility] Total Cell Count 100 10/28/19 23 4:31 AM CDT [facility] Neutrophils Absolute Manual 12.09(H) 1.60 - 7.00 10? 3 /uL 10/27/2022 4:31 AM CDT [facility] Comment:(BANDS+SEGS) x WBC = NEUT # (ANC) Lymphocyte Absolute Manual 5.07(H) 1.10 - 3.90 10? 3 /uL 10/27/2022 4:31 AM [facility] Monocytes Absolute Manual 0.78 0.26 - 1.07 10? 3 /uL 10/27/2022 4:31 AM [facility] Eosinophils Absolute Manual 1.17(H) 0.00 - 0.47 10? 3 /uL 10/27/2022 4:31 AM [facility] Neutrophil % Manual 62 35 - 70 % 10/27/2022 4:31 AM [facility] Lymphocyte % Manual 26 20 - 43 % 10/27/2022 4:31 AM [facility] Monocytes % Manual 4(L) 5 - 13 % 10/27/2022 4:31 AM [facility] Eosinophils % Manual 6 0 - 6 % 10/27/2022 4:31 AM [facility] Metamyelocyte % Manual 1(H) 0 % 10/27/2022 4:31 AM [facility] Myelocytes % Manual 1(H) 0 % 10/27/2022 4:31 AM [facility] Platelet Estimate Increased (A) Adequate 10/27/2022 4:31 AM [facility] Polychromasia Occasiona l(A) None 10/27/2022 4:31 AM [facility] Ovalocytes Occasiona l(A) None 10/27/2022 4:31 AM [facility] Eduardo Cells Occasiona l(A) None 10/27/2022 4:31 AM [facility] Tear Drop Cells Occasiona l(A) None 10/27/2022 4:31 AM [facility] Smudge Cells Rare(A) None 10/27/2022 4:31 AM [facility] Large Platelet Count Occasiona l(A) None 10/27/2022 4:31 AM [facility] Blood BLOOD SPECIMEN / Unknown Venipuncture / Unknown 10/27/2022 12:54 AM CDT 10/27/2022 1:02 AM T Emir Vail MD LAB - HEMATOLOGY ORD ERABLES [facility] [address] [place] [address], [facility] [phone] * (ABNORMAL) PTT [facility] (10/27/2022 12:54 AM CDT) [facility] APTT 59.5(H) 23.0 - 38.4 Seconds 10/27/2022 1:25 AM [facility] Comment:Suggested therapeuti c range for full dose I.V. unfractionated heparin therapy for venous thromboembolism is 71 to 109 seconds. Blood BLOOD SPECIMEN / Unknown Venipuncture / Unknown 10/27/2022 12:54 AM CDT 10/27/2022 1:02 AM CDT Emir Vail MD LAB - COAGULATION OR DERABLES Performing Organization Address City/State/[facility] Co de Phone Number [facility] [address] [place] [address], [facility] [phone] * (ABNORMAL) BASIC METABOLIC PANEL (CALCIUM TOTAL) (10/27/2022 12:54 AM CDT) [facility] BUN 11 7 - 26 mg/dL 10/27/2022 1:28 AM [facility] Creatinine 0.53(L) 0.56 - 0.96 mg/dL 10/27/2022 1:28 AM [facility] Sodium 138 136 - 145 mmol/L 10/27/2022 1:28 AM [facility] Potassium 3.5 3.5 - 4.5 mmol/L 10/27/2022 1:28 AM [facility] Chloride 107 98 - 107 mmol/L 10/27/2022 1:28 AM [facility] CO2 24 22 - 29 mmol/L 10/27/2022 1:28 AM [facility] Glucose 137(H) 70 - 115 mg/dL 10/27/2022 1:28 AM [facility] Calcium 8.4 8.4 - 10.2 mg/dL 10/27/2022 1:28 AM [facility] Anion Gap 11 8 - 18 10/27/2022 1:28 AM [facility] BUN/Creatinine Ratio 21 7 - 23 10/27/2022 1:28 AM [facility] Osmolality Calculated 288 270 - 300 mOsm/kg 10/27/2022 1:28 AM [facility] eGFR by CKD-EPI >90 >=90 mL/min/1.7 3 m2 10/27/2022 1:28 AM [facility] Blood BLOOD SPECIMEN / Unknown Venipuncture / Unknown 10/27/2022 12:54 AM CDT 10/27/2022 1:02 AM CDT Emir Vail MD LAB - CHEMISTRY BIBIANA BLACKMAN [facility] Organization Address City/State/ZIP Co de Phone Number [facility] [address] [place] [address], [facility] [phone] * (ABNORMAL) CBC W AUTO DIFFERENTIAL (10/27/2022 12:54 AM CDT) WBC 19.5(H) 3.5 - 10.5 10? 3 /uL 10/27/2022 1:23 AM [facility] RBC 2.60(L) 3.80 - 5.20 10? 6 /uL 10/27/2022 1:23 AM [facility] Hemoglobin 8.0(L) 12.0 - 15.6 g/dL 10/27/2022 1:23 AM [facility] Hematocrit 24.6(L) 35.0 - 45.0 % 10/27/2022 1:23 AM [facility] MCV 94.6 80.7 - 98.3 fL 10/27/2022 1:23 AM [facility] MCH 30.8 26.7 - 34.0 pg 10/27/2022 1:23 AM [facility] MCHC 32.5 30.8 - 35.9 g/dL 10/27/2022 1:23 AM [facility] RDW-SD 45.8 36.0 - 50.0 fL 10/27/2022 1:23 AM [facility] RDW-CV 13.5 11.2 - 14.8 % 10/27/2022 1:23 AM [facility] Platelet Count 519(H) 150 - 400 10? 3 /uL 10/27/2022 1:23 AM CDT [facility] MPV 10.1 9.4 - 12.9 fL 10/27/2022 1:23 AM CDT [facility] nRBC Absolute 0.08(H) 0 10? 3 /uL 10/27/2022 1:23 AM CDT [facility] nRBC Auto 0.4(H) 0 /100 WBC 10/27/2022 1:23 AM CDT [facility] Blood BLOOD SPECIMEN / Unknown Venipuncture / Unknown 10/27/2022 12:54 AM CDT 10/27/2022 1:02 AM CDT Emir Vail MD LAB - HEMATOLOGY ORD ERABLES [address] [address], [facility] [phone] * PHOSPHORUS BLOOD (10/27/2022 12:54 AM CDT) Phosphorus 3.5 2.9 - 5.1 mg/dL 10/27/2022 1:28 AM CDT [facility] Blood BLOOD SPECIMEN / Unknown Venipuncture / Unknown 10/27/2022 12:54 AM CDT 10/27/2022 1:02 AM CDT Emir Vail MD LAB - CHEMISTRY ORDE HIRAL [address] [address], [facility] [phone] * MAGNESIUM BLOOD (10/27/2022 12:54 AM CDT) Magnesium 2.0 1.6 - 2.6 mg/dL 10/27/2022 1:28 AM CDT [facility] Blood BLOOD SPECIMEN / Unknown Venipuncture / Unknown 10/27/2022 12:54 AM CDT 10/27/2022 1:02 AM CDT Emir Vail MD LAB - CHEMISTRY ORDDanyelle BLACKMAN Performing Organization Address City/[facility]/ZIP Co de Phone Number [address] [address], [place] [phone] * (ABNORMAL) PTT [facility] (10/26/2022 9:12 PM CDT) APTT 65.0(H) 23.0 - 38.4 Seconds 10/26/2022 9:46 PM CDT [facility] Comment:Suggested therapeuti c range for full dose I.V. unfractionated heparin therapy for venous thromboembolism is 71 to 109 seconds. Blood BLOOD SPECIMEN / Unknown Venipuncture / Unknown 10/26/2022 9:12 PM CDT 10/26/2022 9:18 PM CDT Emir Vail MD LAB - COAGULATION OR DERABLES Performing Organization Address [facility]/ZIP Co de Phone Number [address] [address], [place] [phone] * (ABNORMAL) GLUCOSE - POINT OF CARE (10/26/2022 6:33 PM CDT) Glucose WB/POC 122(H) 70 - 115 mg/dL 10/26/2022 6:34 PM CDT [facility] Specimen Type Cap Fingerstick 2022 6:34 PM CDT [facility] Blood BLOOD SPECIMEN / Unknown 10/26/2022 6:33 PM CDT 10/26/2022 6:34 PM CDT Emir Vail MD LAB - POINT OF CARE ORDERABLES Performing Organization Address City/[facility]/ZIP Co de Phone Number [address] [address], [place] [phone] * (ABNORMAL) PTT [facility] (10/26/2022 3:59 PM CDT) APTT 52.9(H) 23.0 - 38.4 Seconds 10/26/2022 4:35 PM CDT [facility] Comment:Suggested therapeuti c range for full dose I.V. unfractionated heparin therapy for venous thromboembolism is 71 to 109 seconds. Blood BLOOD SPECIMEN / Unknown Venipuncture / Unknown 10/26/2022 3:59 PM CDT 10/26/2022 4:12 PM CDT Emir Vail MD LAB - COAGULATION OR DERABLES Performing Organization Address [facility]/ZIP Co de Phone Number [facility] [address] [place] [address], [place] [phone] * VAS ARTERIAL MULTILEVEL LE (10/26/2022 2:59 PM CDT) Anatomical Region Laterality Modality Intravascular Ul trasound 10/26/2022 1:32 AM CDT Narrative Procedure Note Daniella Jose MD - 10/27/2022 Emir Vail MD VASCULAR LAB ORDERAB LES * (ABNORMAL) GLUCOSE - POINT OF CARE (10/26/2022 12:15 PM CDT) Glucose WB/POC 122(H) 70 - 115 mg/dL 10/26/2022 12:16 PM CDT [facility] Specimen Type Cap Fingerstick 2022 12:16 PM CDT [facility] Blood BLOOD SPECIMEN / Unknown 10/26/2022 12:15 PM CDT 10/26/2022 12:16 PM CDT Emir Vail MD LAB - POINT OF CARE ORDERABLES Performing Organization Address City/[facility]/ZIP Co de Phone Number [facility] [address] [place] [address], [place] [phone] * (ABNORMAL) PTT [facility] (10/26/2022 11:24 AM CDT) APTT 51.1(H) 23.0 - 38.4 Seconds 10/26/2022 11:55 AM CDT [facility] Comment:Suggested therapeuti c range for full dose I.V. unfractionated heparin therapy for venous thromboembolism is 71 to 109 seconds. Blood BLOOD SPECIMEN / Unknown Venipuncture / Unknown 10/26/2022 11:24 AM CDT 10/26/2022 11:31 AM CDT Emir Vail MD LAB - COAGULATION OR DERABLES [address] [address], [facility] [phone] * VANCOMYCIN LEVEL TROUGH (10/26/2022 8:38 AM CDT) Vancomycin Trough 14.0 10.0 - 20.0 ug/mL 10/26/2022 9:59 AM CDT [facility] Blood BLOOD SPECIMEN / Unknown Venipuncture / Unknown 10/26/2022 8:38 AM CDT 10/26/2022 8:45 AM CDT Narrative [facility] - 10/26/2022 9:59 AM CDT See institution protocol. Emir Vail MD LAB - CHEMISTRY ORDE RABLES Performing Organization Address City/[facility]/ZIP Co de Phone Number [address] [address], [facility] [phone] * LAB MISC TEST (10/26/2022 7:37 AM CDT) Test Name mycoplasma PCR , blood 12/09/2022 1:25 PM CDT [email or web address] Test Result See Scanned Report 12/09/2022 1:25 PM CDT [facility] Comment Ref Lab [facility] 12/09/2022 1:25 PM CDT [facility] Blood BLOOD SPECIMEN / Unknown Venipuncture / Unknown 10/26/2022 7:37 AM CDT 10/26/2022 7:39 AM CDT Emir Vail MD LAB SEND OUT [email or web address] [address] [place] [address] * (ABNORMAL) GLUCOSE - POINT OF CARE (10/26/2022 7:12 AM CDT) Glucose WB/POC 144(H) 70 - 115 mg/dL 10/26/2022 7:13 AM CDT [facility] Specimen Type Cap Fingerstick 2022 7:13 AM CDT [facility] Blood BLOOD SPECIMEN / Unknown 10/26/2022 7:12 AM CDT 10/26/2022 7:13 AM CDT Emir Vail MD LAB - POINT OF CARE ORDERABLES Performing Organization Address City/[facility]/ZIP Co de Phone Number [address] [address], [place] [phone] * (ABNORMAL) PTT [facility] (10/26/2022 6:47 AM CDT) APTT 44.3(H) 23.0 - 38.4 Seconds 10/26/2022 7:17 AM CDT [facility] Comment:Suggested therapeuti c range for full dose I.V. unfractionated heparin therapy for venous thromboembolism is 71 to 109 seconds. Blood BLOOD SPECIMEN / Unknown Venipuncture / Unknown 10/26/2022 6:47 AM CDT 10/26/2022 6:52 AM CDT Emir Vail MD LAB - COAGULATION OR DERABLES Performing Organization Address City/[facility]/ZIP Co de Phone Number [address] [address], [place] [phone] * CT HEAD WO CONTRAST (10/26/2022 4:55 AM CDT) Anatomical Region Laterality Modality Head Computed Tomogra phy 10/26/2022 7:28 AM CDT Impressions 10/26/2022 8:19 AM CDT IMPRESSION: 1. Redemonstration of evolving large right MCA territory acute to subacute infarct without definite evidence of hemorrhagic transformation. Unchanged minimal leftward midline shift of about 2 mm at the level of foramen of Monro and effacement of the left lateral ventricle. 2. Redemonstration of postsurgical changes from right-sided decompressive hemicraniectomy, unchanged compared to prior study. These results were discussed with stroke resident Dr Mendez by Dr. Miranda Bowen at 8:05 AM on 10/26/2022 with read back confirmation and closed-loop communication. The report is dictated by Miranda Bowen MD (resident services coordinator) I, Oriana Suarez MD have personally reviewed and interpreted this examination/study. 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 COMPARISON: Comparison is made with a CT head dated 10/25/2022. FINDINGS: Redemonstration of postoperative changes of right decompressive hemicraniectomy. Redemonstration of large volume confluent acute infarct in the right MCA territory involving the right frontal parietal temporal and insular regions and basal ganglia. Redemonstration of mild herniation of the right frontoparietal and temporal regions through the craniectomy defect. Redemonstration of a curvilinear extra-axial/extracranial fluid collection overlying the right cerebral convexity containing debris and blood products, measuring about 7 mm in thickness not significantly changed compared to prior study. Redemonstration of linear foci of hyperdensity along the evolving infarct most likely secondary to prominent vasculature. No new hyperdense foci within the evolving infarct. No evidence of transtentorial or tonsillar herniation. Station a mass effect from the large evolving right MCA territory infarct with effacement of sulci, and effacement of the right lateral ventricle. There is a large area of recent infarction seen in the right hemisphere in the MCA territory with associated mass effect and some effacement of the right lateral ventricle grossly unchanged from prior. There are foci of hypoattenuation consistent with small evolving subacute to acute infarcts within the left frontal lobe periventricular white matter and left martínez radiata extending up to the left frontal subcortical regions also unchanged compared to prior study. No new intracranial hemorrhage or intra- or extra-axial fluid collections are identified. The left lateral ventricle, third and fourth ventricles are of normal size, shape, and morphology. The basal cisterns are patent. Leftward midline shift is approximately 2 mm as measured at the foramen of Monro, unchanged from yesterday. The visualized portions of the orbits, paranasal sinuses, and mastoids appear normal. No acute calvarial fracture is identified. 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 COMPARISON: Comparison is made with a CT head dated 10/25/2022. FINDINGS: Redemonstration of postoperative changes of right decompressive hemicraniectomy. Redemonstration of large volume confluent acute infarctin the right MCA territory involving the right frontal parietal temporaland insular regions and basal ganglia. Redemonstration of mild herniation of the right frontoparietal and temporal regions through the craniectomy defect. Redemonstration of a curvilinear extra-axial/extracranial fluid collection overlying the right cerebral convexity containing debris and blood products, measuring about 7 mm in thickness not significantlychanged compared to prior study. Redemonstration of linear foci of hyperdensity along the evolving infarct most likely secondary to prominentvasculature. No new hyperdense foci within the evolving infarct. No evidence of transtentorial or tonsillar herniation. Station a mass effect from the large evolving right MCA territoryinfarct with effacement of sulci, and effacement of the right lateral ventricle. There is a large area of recent infarction seen in the right hemispherein the MCA territory with associated mass effect and some effacement of the right lateral ventricle grossly unchanged from prior. There are foci of hypoattenuation consistent with small evolving subacute to acuteinfarcts within the left frontal lobe periventricular white matter and leftcorona radiata extending up to the left frontal subcortical regions alsounchanged compared to prior study. No new intracranial hemorrhage or intra- or extra-axial fluidcollections are identified. The left lateral ventricle, third and fourth ventriclesare of normal size, shape, and morphology. The basal cisterns are patent. Leftward midline shift is approximately 2 mm as measured at the foramenof Monro, unchanged from yesterday. The visualized portions of the orbits, paranasal sinuses, and mastoids appear normal. No acute calvarial fracture is identified. Partially visualized nasaltube IMPRESSION: 1. Redemonstration of evolving large right MCA territory acute tosubacute infarct without definite evidence of hemorrhagic transformation.Unchanged minimal leftward midline shift of about 2 mm at the level of foramen of Monro and effacement of the left lateral ventricle. 2. Redemonstration of postsurgical changes from right-sideddecompressive hemicraniectomy, unchanged compared to prior study. These results were discussed with stroke resident Dr Mendez by Dr. Miranda Bowen at 8:05 AM on 10/26/2022 with read back confirmation and closed-loop communication. The report is dictated by Miranda Bowen MD (resident services coordinator) I, Oriana Suarez MD have personally reviewed and interpreted this examination/study. > Interpreting Provider: Oriana Suarez MD on 10/26/2022 8:19 AM Emir Vail MD CT ORDERABLES * PT-INR [facility] (10/26/2022 4:26 AM CDT) PT 13.6 12.1 - 14.8 Seconds 10/26/2022 4:59 AM CDT [facility] INR 1.0 See Comment 10/26/2022 4:59 AM CDT [facility] Comment:The suggested therap eutic range for standard coumadin (warfarin) therapy is an INR of 2.0-3.0. For high-risk patients (Mechanical Mitral Valve Prosthesis, etc.), the suggested prophylactic therapeutic range is an INR of 2.5-3.5. Blood BLOOD SPECIMEN / Unknown Venipuncture / Unknown 10/26/2022 4:26 AM CDT 10/26/2022 4:32 AM CDT Emir Vail MD LAB - COAGULATION OR DERABLES Performing Organization Address [facility]/ZIP Co de Phone Number [address] [address], [facility] [phone] * (ABNORMAL) PTT [facility] (10/26/2022 1:55 AM CDT) APTT 20.5(L) 23.0 - 38.4 Seconds 10/26/2022 2:26 AM T [facility] Comment:Suggested therapeuti c range for full dose I.V. unfractionated heparin therapy for venous thromboembolism is 71 to 109 seconds. Blood BLOOD SPECIMEN / Unknown Venipuncture / Unknown 10/26/2022 1:55 AM CDT 10/26/2022 2:00 AM CDT Emir Vail MD LAB - COAGULATION OR DERABLES Performing Organization Address [facility]/ZIP Co de Phone Number [address] [address], [facility] [phone] * (ABNORMAL) BASIC METABOLIC PANEL (CALCIUM TOTAL) (10/26/2022 12:02 AM CDT) BUN 13 7 - 26 mg/dL 10/26/2022 12:30 AM [facility] Creatinine 0.54(L) 0.56 - 0.96 mg/dL 10/26/2022 12:30 AM [facility] Sodium 139 136 - 145 mmol/L 10/26/2022 12:30 AM [facility] Potassium 3.3(L) 3.5 - 4.5 mmol/L 10/26/2022 12:30 AM [facility] Chloride 105 98 - 107 mmol/L 10/26/2022 12:30 AM [facility] CO2 24 22 - 29 mmol/L 10/26/2022 12:30 AM [facility] Glucose 113 70 - 115 mg/dL 10/26/2022 12:30 AM [facility] Calcium 8.4 8.4 - 10.2 mg/dL 10/26/2022 12:30 AM [facility] Anion Gap 13 8 - 18 10/26/2022 12:30 AM [facility] BUN/Creatinine Ratio 24(H) 7 - 23 10/26/2022 12:30 AM [facility] Osmolality Calculated 289 270 - 300 mOsm/kg 10/26/2022 12:30 AM [facility] eGFR by CKD-EPI >90 >=90 mL/min/1.7 3 m2 10/26/2022 12:30 AM [facility] Blood BLOOD SPECIMEN / Unknown Venipuncture / Unknown 10/26/2022 12:02 AM CDT 10/26/2022 12:06 AM CDT Emir Vail MD LAB [facility] Organization Address City/[facility] Co de Phone Number [facility] [address] [place] [phone], [facility] [phone] * (ABNORMAL) CBC W AUTO DIFFERENTIAL (10/26/2022 12:02 AM CDT) WBC 16.1(H) 3.5 - 10.5 10? 3 /uL 10/26/2022 12:12 AM [facility] RBC 2.64(L) 3.80 - 5.20 10? 6 /uL 10/26/2022 12:12 AM [facility] Hemoglobin 8.1(L) 12.0 - 15.6 g/dL 10/26/2022 12:12 AM [facility] Hematocrit 25.1(L) 35.0 - 45.0 % 10/26/2022 12:12 AM [facility] MCV 95.1 80.7 - 98.3 fL 10/26/2022 12:12 AM [facility] MCH 30.7 26.7 - 34.0 pg 10/26/2022 12:12 AM [facility] MCHC 32.3 30.8 - 35.9 g/dL 10/26/2022 12:12 AM [facility] RDW-SD 46.2 36.0 - 50.0 fL 10/26/2022 12:12 AM [facility] RDW-CV 13.5 11.2 - 14.8 % 10/26/2022 12:12 AM [facility] Platelet Count 446(H) 150 - 400 10? 3 /uL 10/26/2022 12:12 AM [facility] MPV 10.0 9.4 - 12.9 fL 10/26/2022 12:12 AM [facility] nRBC Absolute 0.04(H) 0 10? 3 /uL 10/26/2022 12:12 AM [facility] nRBC Auto 0.2(H) 0 /100 WBC 10/26/2022 12:12 AM [facility] Neutrophils % 63.5 35.0 - 70.0 % 10/26/2022 12:12 AM [facility] Lymphocytes % 22.7 20.0 - 43.0 % 10/26/2022 12:12 AM [facility] Monocytes % 8.3 5.0 - 13.0 % 10/26/2022 12:12 AM [facility] Eosinophils % 3.2 0.0 - 6.0 % 10/26/2022 12:12 AM [facility] Basophil % 0.4 0.0 - 2.0 % 10/26/2022 12:12 AM [facility] Neutrophils Absolute 10.24(H) 1.60 - 7.00 10? 3 /uL 10/26/2022 12:12 AM [facility] Lymphocyte Absolute 3.65 1.10 - 3.90 10? 3 /uL 10/26/2022 12:12 AM [facility] Monocytes Absolute 1.34(H) 0.26 - 1.07 10? 3 /uL 10/26/2022 12:12 AM [facility] Eosinophils Absolute 0.51(H) 0.00 - 0.47 10? 3 /uL 10/26/2022 12:12 AM [facility] Basophils Absolute 0.06 0.00 - 0.08 10? 3 /uL 10/26/2022 12:12 AM CDT [facility] Immature Granulocytes % 1.9(H) 0.0 - 1.0 % 10/26/2022 12:12 AM CDT [facility] Immature Granulocytes Absolute 0.30 10/26/2022 12:12 AM CDT [facility] Blood BLOOD SPECIMEN / Unknown Venipuncture / Unknown 10/26/2022 12:02 AM CDT 10/26/2022 12:06 AM CDT Emir Vail MD LAB - HEMATOLOGY ORD DIMAS [address] [address], [place] [phone] * PHOSPHORUS BLOOD (10/26/2022 12:02 AM CDT) Phosphorus 3.5 2.9 - 5.1 mg/dL 10/26/2022 12:30 AM CDT [facility] Blood BLOOD SPECIMEN / Unknown Venipuncture / Unknown 10/26/2022 12:02 AM CDT 10/26/2022 12:06 AM CDT Emir Vail MD LAB - CHEMISTRY BIBIANA BLACKMAN [address] [address], [place] [phone] * MAGNESIUM BLOOD (10/26/2022 12:02 AM CDT) Magnesium 1.9 1.6 - 2.6 mg/dL 10/26/2022 12:30 AM CDT [facility] Blood BLOOD SPECIMEN / Unknown Venipuncture / Unknown 10/26/2022 12:02 AM CDT 10/26/2022 12:06 AM CDT Emir Vail MD LAB - CHEMISTRY BIB[place]NA BLACKMAN [address] [address], [place] [phone] * GLUCOSE - POINT OF CARE (10/25/2022 11:14 PM CDT) Glucose WB/POC 114 70 - 115 mg/dL 10/25/2022 11:15 PM CDT [facility] Specimen Type Cap Fingerstick 2022 11:15 PM CDT [facility] Blood BLOOD SPECIMEN / Unknown 10/25/2022 11:14 PM CDT 10/25/2022 11:15 PM CDT Emir Vail MD LAB - POINT OF CARE ORDERABLES [address] [address], [facility] [phone] * PTT [facility] (10/25/2022 9:02 PM CDT) APTT 33.3 23.0 - 38.4 Seconds 10/25/2022 9:32 PM CDT [facility] Comment:Suggested therapeuti c range for full dose I.V. unfractionated heparin therapy for venous thromboembolism is 71 to 109 seconds. Blood BLOOD SPECIMEN / Unknown Venipuncture / Unknown 10/25/2022 9:02 PM CDT 10/25/2022 9:10 PM CDT Emir Vail MD LAB - COAGULATION OR DERABLES [address] [address], [place] [phone] * (ABNORMAL) GLUCOSE - POINT OF CARE (10/25/2022 6:54 PM CDT) Glucose WB/POC 122(H) 70 - 115 mg/dL 10/25/2022 6:56 PM CDT [facility] Specimen Type Cap Fingerstick 2022 6:56 PM CDT [facility] Blood BLOOD SPECIMEN / Unknown 10/25/2022 6:54 PM CDT 10/25/2022 6:55 PM CDT Emir Vail MD LAB - POINT OF CARE ORDERABLES Performing Organization Address City/[facility]/ZIP Co de Phone Number [address] [address], [facility] [phone] * PTT [facility] (10/25/2022 4:41 PM CDT) APTT 24.8 23.0 - 38.4 Seconds 10/25/2022 5:19 PM CDT [facility] Comment:Suggested therapeuti c range for full dose I.V. unfractionated heparin therapy for venous thromboembolism is 71 to 109 seconds. Blood BLOOD SPECIMEN / Unknown Venipuncture / Unknown 10/25/2022 4:41 PM CDT 10/25/2022 4:55 PM CDT Emir Vail MD LAB - COAGULATION OR DERABLES Performing Organization Address [facility] Co de Phone Number [address] [address], [place] [phone] * PT-INR [facility] (10/25/2022 4:41 PM CDT) PT 13.4 12.1 - 14.8 Seconds 10/25/2022 5:19 PM CDT [facility] INR 1.0 See Comment 10/25/2022 5:19 PM CDT [facility] Comment:The suggested therap eutic range for standard coumadin (warfarin) therapy is an INR of 2.0-3.0. For high-risk patients (Mechanical Mitral Valve Prosthesis, etc.), the suggested prophylactic therapeutic range is an INR of 2.5-3.5. Blood BLOOD SPECIMEN / Unknown Venipuncture / Unknown 10/25/2022 4:41 PM CDT 10/25/2022 4:55 PM CDT Emir Vail MD LAB - COAGULATION OR DERABLES Performing Organization Address [facility] Co de Phone Number [address] [address], [place] [phone] * CT CHEST ABDOMEN PELVIS W CONT [...] verification. > Dictated by Clarisa Cantrell MD (resident services coordinator). I, Alexx Lopez have personally reviewed and interpreted this examination/study. > Interpreting Provider: Alexx Lopez on 10/25/2022 4:16 PM Narrative 10/25/2022 4:16 PM CDT PROCEDURE: ??CT CHEST ABDOMEN PELVIS W CONT, DATE/TIME OF EXAM: ??10/25/2022 12:56 PM, LOCATION ??[facility] INDICATION: I63.511: Right middle cerebral artery stroke [...] related to subcutaneous injections. Procedure Note Alexx Loepz MD - 10/25/2022 PROCEDURE: CT CHEST ABDOMEN PELVIS W CONT, DATE/TIME OF EXAM:10/25/2022 12:56 PM, LOCATION [facility] INDICATION: I63.511: Right middle cerebral artery stroke [...] verification. > Dictated by Clarisa Cantrell MD (resident services coordinator). I, Alexx Lopez have personally reviewed and interpreted this examination/study. > Interpreting Provider: Alexx Lopez on 10/25/2022 4:16 PM Emir Vail MD CT ORDERABLES * CT HEAD WO CONTRAST (10/25/2022 12:55 PM CDT) Anatomical Region Laterality Modality Head Computed Tomogra phy 10/25/2022 1:09 PM CDT Impressions 10/25/2022 2:51 PM CDT IMPRESSION: Redemonstrated postoperative changes consistent with right calvarial hemicraniectomy. Fluid collection overlying the lateral right cerebral hemisphere within the craniectomy defect containing some recent blood products. The overall size of this fluid collection is less than on previous study. In addition, there is less air/gas within this defect. Evolving large recent right cerebral hemisphere infarct with mass effect and approximately 2 mm of midline shift right to left. There appears to be slightly less mass effect and midline shift on today's study. Continued follow-up is recommended. Small recent cortical infarct in the lateral left frontal lobe as well as small recent infarct in left martínez radiata which appears similar to previous study. Clinical correlation recommended. The report is dictated by Miranda Bowen MD (resident services coordinator) I, Joni Fabian MD have personally reviewed and interpreted this examination/study. 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 CT dose reduction technique was used, including Automated Exposure Control. COMPARISON: Comparison is made with brain MR [address] head dated 10/23/2022 FINDINGS: There are postoperative changes of right hemicraniectomy. There is soft tissue thickening and skin carla overlying the operative defect. There is curvilinear fluid collection collection overlying the right cerebral convexity within the craniectomy defect containing some recent blood products and which measures approximately 22 mm in maximum thickness. There is a large area of recent infarction in the right cerebral hemisphere in the distribution in the distribution of the right middle cerebral artery. Mass effect is produced by this. There is a small amount of midline shift right to left of roughly 2 mm at the level of the foramen of Monro. There is some compression of the right lateral ventricle. The left lateral ventricle, third, and fourth ventricles are normal in size. There are foci of decreased attenuation consistent with small recent infarcts within the left frontal lobe and left martínez radiata. Bone window images demonstrate no signal suspicious lytic or blastic lesions. When today's study is compared to the parenchyma of 24 October [address] 23 October, there may be slightly less mass effect and midline shift on today's study and the fluid collection within the craniectomy defect overlying the lateral right cerebral hemisphere is slightly smaller. There has been interval removal of the drainage tube that was present within the craniectomy defect on previous brain CT and there is less air/gas within the operative defect relative to the previous brain CT. 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 CT dose reduction technique was used, including Automated Exposure Control. COMPARISON: Comparison is made with brain MR [address] head dated 10/23/2022 FINDINGS: There are postoperative changes of right hemicraniectomy. There is soft tissue thickening and skin carla overlying the operative defect. Thereis curvilinear fluid collection collection overlying the right cerebral convexity within the craniectomy defect containing some recent blood products and which measures approximately 22 mm in maximum thickness. There is a large area of recent infarction in the right cerebralhemisphere in the distribution in the distribution of the right middle cerebral artery. Mass effect is produced by this. There is a small amount ofmidline shift right to left of roughly 2 mm at the level of the foramen ofMonro. There is some compression of the right lateral ventricle. The leftlateral ventricle, third, and fourth ventricles are normal in size. There arefoci of decreased attenuation consistent with small recent infarcts withinthe left frontal lobe and left martínez radiata. Bone window images demonstrate no signal suspicious lytic or blastic lesions. When today's study is compared to the parenchyma of 24 October [address] 23 October, there may be slightly less mass effect and midline shift on today's study and the fluid collection within the craniectomy defect overlying the lateral right cerebral hemisphere is slightlysmaller. There has been interval removal of the drainage tube that was present within the craniectomy defect on previous brain CT and there is less air/gas within the operative defect relative to the previous brain CT. IMPRESSION: Redemonstrated postoperative changes consistent with right calvarial hemicraniectomy. Fluid collection overlying the lateral right cerebral hemisphere withinthe craniectomy defect containing some recent blood products. The overallsize of this fluid collection is less than on previous study. In addition,there is less air/gas within this defect. Evolving large recent right cerebral hemisphere infarct with mass effect and approximately 2 mm of midline shift right to left. There appears mini slightly less mass effect and midline shift on today's study. Continued follow-up is recommended. Small recent cortical infarct in the lateral left frontal lobe as wellas small recent infarct in left martínez radiata which appears similar to previous study. Clinical correlation recommended. The report is dictated by Miranda Bowen MD (resident services coordinator) Joni Ornelas MD have personally reviewed and interpreted this examination/study. 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 Enteric tube courses below the diaphragm and out of the [id number]. There is severe left rotation of the patient in this study. There is no focal consolidation, pleural effusion, or pneumothorax. The left upper lobe pulmonary nodule noted on chest CT from same day is not visualized on this plain film. The cardiomediastinal silhouette is normal. The visible bony thorax is intact. Report dictated by Royer Stovall MD (resident services coordinator). Alexx Ornelas have personally reviewed and interpreted this examination/study. 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 Enteric tube courses below the diaphragm and out of the [id number]. There is severe left rotation of the patient in this study. There is no focal consolidation, pleural effusion, or pneumothorax. The left upper lobe pulmonary nodule noted on chest CT from same day is not visualized on this plain film. The cardiomediastinal silhouette isnormal. The visible bony thorax is intact. Report dictated by Royer Stovall MD (resident services coordinator). I, Alexx Lopez have personally reviewed and interpreted this examination/study. > Interpreting Provider: Alexx Lopez on 10/26/2022 2:01 PM Shahbaz Bowen MD DIAGNOSTIC IMAGING O RDDIMAS * CULTURE BLOOD (10/25/2022 9:00 AM CDT) Pathologist [facility] Culture No growth day 5 ROSELIA 10/30/2022 1:30 PM CDT [facility] Blood PERIPHERAL BLOOD / Unknown Venipuncture / Unknown 10/25/2022 9:00 AM CDT 10/25/2022 9:21 AM CDT Emir Vail MD LAB - MICROBIOLOGY O DIONI [facility]CRO[facility] [address] [place] [address], [facility] [phone] * (ABNORMAL) GLUCOSE - POINT OF CARE (10/25/2022 7:46 AM CDT) Pathologist [facility] Glucose WB/POC 123(H) 70 - 115 mg/dL 10/25/2022 7:47 AM CDT [facility] Specimen Type Cap Fingerstick 2022 7:47 AM CDT [facility] Blood BLOOD SPECIMEN / Unknown 10/25/2022 7:46 AM CDT 10/25/2022 7:47 AM CDT Emir Vail MD LAB - POINT OF CARE ORDERABLES Performing Organization Address City/[facility]/ZIP Co de Phone Number [facility] [address] [place] [phone], [facility] [phone] * HEPATITIS C AB SCREEN RFLX NAAT QUANT (10/25/2022 1:39 AM CDT) Hepatitis C Antibody Non-react tiffany Non-reac tive 10/25/2022 2:56 AM CDT [facility] Comment:Hepatitis C Antibody screen indicates no serologic [...] CDT Emir Vail MD LAB - CHEMISTRY ORDE RABLES Performing Organization Address City/[facility]/ZIP Co de Phone Number [address] [address], [facility] [phone] * HIV-1 HIV-2 ANTIBODY + HIV P24 AG PANEL (10/25/2022 1:39 AM CDT) HIV Antigen/Antibod y 1 & 2 Non-reacti ve Non-react tiffany 10/25/2022 2:56 AM CDT [facility] Comment:No Laboratory eviden ce of HIV infection. Blood BLOOD SPECIMEN / Unknown Venipuncture / Unknown 10/25/2022 1:39 AM CDT 10/25/2022 1:56 AM CDT Emir Vail MD LAB - CHEMISTRY BIBIANA BLACKMAN [facility] [address] [place] [phone], [facility] [phone] * (ABNORMAL) BASIC METABOLIC PANEL (CALCIUM TOTAL) (10/25/2022 12:07 AM CDT) BUN 16 7 - 26 mg/dL 10/25/2022 12:48 AM [facility] Creatinine 0.48(L) 0.56 - 0.96 mg/dL 10/25/2022 12:48 AM [facility] Sodium 140 136 - 145 mmol/L 10/25/2022 12:48 AM [facility] Potassium 4.0 3.5 - 4.5 mmol/L 10/25/2022 12:48 AM [facility] Chloride 106 98 - 107 mmol/L 10/25/2022 12:48 AM [facility] CO2 25 22 - 29 mmol/L 10/25/2022 12:48 AM [facility] Glucose 116(H) 70 - 115 mg/dL 10/25/2022 12:48 AM [facility] Calcium 9.0 8.4 - 10.2 mg/dL 10/25/2022 12:48 AM [facility] Anion Gap 13 8 - 18 10/25/2022 12:48 AM [facility] BUN/Creatinine Ratio 33(H) 7 - 23 10/25/2022 12:48 AM [facility] Osmolality Calculated 292 270 - 300 mOsm/kg 10/25/2022 12:48 AM [facility] eGFR by CKD-EPI >90 >=90 mL/min/1.7 3 m2 10/25/2022 12:48 AM [facility] Blood BLOOD SPECIMEN / Unknown Venipuncture / Unknown 10/25/2022 12:07 AM CDT 10/25/2022 12:12 AM CDT Emir Vail MD LAB - CHEMISTRY BIBIANA BLACKMAN [facility] [address] [place] [phone] [phone] * (ABNORMAL) CBC W AUTO DIFFERENTIAL (10/25/2022 12:07 AM [facility]) WBC 16.6(H) 3.5 - 10.5 10? 3 /uL 10/25/2022 12:27 AM [facility] RBC 2.65(L) 3.80 - 5.20 10? 6 /uL 10/25/2022 12:27 AM [facility] Hemoglobin 8.2(L) 12.0 - 15.6 g/dL 10/25/2022 12:27 AM [facility] Hematocrit 25.1(L) 35.0 - 45.0 % 10/25/2022 12:27 AM [facility] MCV 94.7 80.7 - 98.3 fL 10/25/2022 12:27 AM [facility] MCH 30.9 26.7 - 34.0 pg 10/25/2022 12:27 AM [facility] MCHC 32.7 30.8 - 35.9 g/dL 10/25/2022 12:27 AM [facility] RDW-SD 45.8 36.0 - 50.0 fL 10/25/2022 12:27 AM [facility] RDW-CV 13.4 11.2 - 14.8 % 10/25/2022 12:27 AM [facility] Platelet Count 402(H) 150 - 400 10? 3 /uL 10/25/2022 12:27 AM [facility] MPV 10.2 9.4 - 12.9 fL 10/25/2022 12:27 AM [facility] nRBC Absolute 0.03(H) 0 10? 3 /uL 10/25/2022 12:27 AM [facility] nRBC Auto 0.2(H) 0 /100 WBC 10/25/2022 12:27 AM [facility] Neutrophils % 72.0(H) 35.0 - 70.0 % 10/25/2022 12:27 AM [facility] Lymphocytes % 15.7(L) 20.0 - 43.0 % 10/25/2022 12:27 AM [facility] Monocytes % 8.7 5.0 - 13.0 % 10/25/2022 12:27 AM [facility] Eosinophils % 2.1 0.0 - 6.0 % 10/25/2022 12:27 AM [facility] Basophil % 0.4 0.0 - 2.0 % 10/25/2022 12:27 AM [facility] Neutrophils Absolute 11.95(H) 1.60 - 7.00 10? 3 /uL 10/25/2022 12:27 AM [facility] Lymphocyte Absolute 2.60 1.10 - 3.90 10? 3 /uL 10/25/2022 12:27 AM [facility] Monocytes Absolute 1.45(H) 0.26 - 1.07 10? 3 /uL 10/25/2022 12:27 AM [facility] Eosinophils Absolute 0.34 0.00 - 0.47 10? 3 /uL 10/25/2022 12:27 AM [facility] Basophils Absolute 0.06 0.00 - 0.08 10? 3 /uL 10/25/2022 12:27 AM [facility] Immature Granulocytes % 1.1(H) 0.0 - 1.0 % 10/25/2022 12:27 AM [facility] Immature Granulocytes Absolute 0.18 10/25/2022 12:27 AM [facility] Blood BLOOD SPECIMEN / Unknown Venipuncture / Unknown 10/25/2022 12:07 AM CDT 10/25/2022 12:12 AM CDT Emir Vail MD LAB - HEMATOLOGY ORD ERABLES [address] [address], [facility] [phone] * PHOSPHORUS BLOOD (10/25/2022 12:07 AM CDT) Phosphorus 3.7 2.9 - 5.1 mg/dL 10/25/2022 12:48 AM [facility] Blood BLOOD SPECIMEN / Unknown Venipuncture / Unknown 10/25/2022 12:07 AM CDT 10/25/2022 12:12 AM CDT Emir Vail MD LAB - CHEMISTRY [facility] [address] [address], [place] [phone] * MAGNESIUM BLOOD (10/25/2022 12:07 AM CDT) Magnesium 2.1 1.6 - 2.6 mg/dL 10/25/2022 12:48 AM CDT [facility] Blood BLOOD SPECIMEN / Unknown Venipuncture / Unknown 10/25/2022 12:07 AM CDT 10/25/2022 12:12 AM CDT Emir Vail MD LAB - CHEMISTRY [facility]NA BLACKMAN Performing Organization Address City/[facility]/ZIP Co de Phone Number [address] [address], [place] [phone] * GLUCOSE - POINT OF CARE (10/24/2022 8:16 PM CDT) Glucose WB/POC 111 70 - 115 mg/dL 10/24/2022 8:25 PM CDT [facility] Specimen Type Cap Fingerstick 2022 8:25 PM CDT [facility] Blood BLOOD SPECIMEN / Unknown 10/24/2022 8:16 PM CDT 10/24/2022 8:25 PM CDT Emir Vail MD LAB - POINT OF CARE ORDERABLES [address] [address], [place] [phone] * GLUCOSE - POINT OF CARE (10/24/2022 5:10 PM CDT) Glucose WB/POC 112 70 - 115 mg/dL 10/24/2022 5:11 PM CDT [facility] Specimen Type Cap Fingerstick 2022 5:11 PM CDT [facility] Blood BLOOD SPECIMEN / Unknown 10/24/2022 5:10 PM CDT 10/24/2022 5:11 PM CDT Emir Vail MD LAB - POINT OF CARE ORDERABLES [facility] [address] [place] [address], [facility] [phone] * XR ABDOMEN KUB PORTABLE (10/24/2022 2:04 PM CDT) Anatomical Region Laterality Modality Abdomen Radiographic Irene ging 10/24/2022 2:13 PM CDT Narrative 10/24/2022 2:17 PM CDT PROCEDURE: ??XR ABDOMEN KUB PORTABLE, DATE/TIME OF EXAM: ??10/24/2022 2:04 PM, LOCATION ??[facility] INDICATION: R47.1: Dysarthria ADDITIONAL CLINICAL INFORMATION: Ordering Provider Reason For Exam: ??ngt placement COMPARISON: Portable KUB dated 10/23/2022 FINDINGS/IMPRESSION: The enteric tube courses below the diaphragm with tip superimposing the gastric pyloric region. Drafted by Agnes Olmos DO (resident services coordinator). Vanessa Ornelas MD have personally reviewed and interpreted this examination/study. > Interpreting Provider: Vanessa Kumar MD on 10/24/2022 2:17 PM Procedure Note Vanessa Kumar MD - 10/24/2022 PROCEDURE: XR ABDOMEN KUB PORTABLE, DATE/TIME OF EXAM: 10/24/2022 2:04PM, LOCATION [facility] INDICATION: R47.1: Dysarthria ADDITIONAL CLINICAL INFORMATION: Ordering Provider Reason For Exam: ngt placement COMPARISON: Portable KUB dated 10/23/2022 FINDINGS/IMPRESSION: The enteric tube courses below the diaphragm with tip superimposing the gastric pyloric region. Drafted by Agnes Olmos DO (resident services coordinator). I, Vanessa Kumar MD have personally reviewed and interpreted this examination/study. > Interpreting Provider: Vanessa Kumar MD on 32:17 PM Emir Vail MD DIAGNOSTIC IMAGING O RDERABLES * CULTURE BLOOD (10/24/2022 1:13 PM CDT) Culture No growth day 5 ROSELIA 10/29/2022 4:32 PM CDT [facility] Blood PERIPHERAL BLOOD / Unknown Venipuncture / Unknown 10/24/2022 1:13 PM CDT 10/24/2022 1:28 PM CDT Emir Vail MD LAB - MICROBIOLOGY O RDERABLES [facility] [address] [place] [address], [facility] [phone] * (ABNORMAL) GLUCOSE - POINT OF CARE (10/24/2022 12:37 PM CDT) Glucose WB/POC 130(H) 70 - 115 mg/dL 10/24/2022 5:34 PM CDT [facility] Specimen Type Cap Fingerstick 2022 5:34 PM CDT [facility] Blood BLOOD SPECIMEN / Unknown 10/24/2022 12:37 PM CDT 10/24/2022 5:34 PM CDT Emir Vail MD LAB - POINT OF CARE ORDERABLES [facility] [address] [place] [address], [place] [phone] * MRI BRAIN WWO CONTRAST (10/24/2022 10:56 AM CDT) Anatomical Region Laterality Modality Head Magnetic Resonan ce 10/24/2022 10:5 8 AM CDT Impressions 10/24/2022 1:59 PM CDT IMPRESSION: 1.Redemonstration of postoperative changes of a right hemicraniectomy with expected postsurgical changes as outlined above. 2.Redemonstration of evolving large right MCA territory infarction with extensive cytotoxic edema and mild external herniation of the brain through the craniectomy defect. Persistent local mass effect on the right cerebral hemisphere, effacement of the right lateral ventricle, and approximately 3-4 mm [id number]-wl-cnpi midline shift, grossly similar to the prior. 3.Mild dilation of the left lateral ventricle may represent subtle left ventricular entrapment, overall grossly similar to prior. 4.Additional multiple foci of abnormal diffusion within the left frontotemporal lobes with associated T2 FLAIR hyperintensity representing additional small acute to subacute infarcts, likely of cardioembolic etiology. Findings communicated to Dr. Mohr by Dr. Major at 1138 hours on 10/24/2022 with readback comprehension and verification. Report dictated by Tim Major MD (resident services coordinator). I, Jasper Sifuentes MD have personally reviewed and interpreted this examination/study. > Interpreting Provider: Jasper Sifuentes MD on 10/24/2022 1:59 PM Narrative 10/24/2022 1:59 PM CDT PROCEDURE: ??MRI BRAIN WWO CONTRAST, DATE/TIME OF EXAM: ??10/24/2022 10:56 AM, LOCATION ??[facility] INDICATION: I63.411: Acute cerebrovascular accident (CVA) due to embolism of right middle cerebral artery (CMS/HCC) ADDITIONAL CLINICAL INFORMATION: Ordering Provider Reason For Exam: ??Stroke workup Technologist Note: ??Does the patient have a defibrillator, pacemaker, aneurysm clips or implanted mechanical devices?->No Does the patient have metal implants or stents?->No Additional: ??None. EXAMINATION: Magnetic resonance imaging (MRI) of the brain without and with contrast CONTRAST: ??GADOBUTROL 1 MMOL/ML IV SSM SO:9.5 mL TECHNIQUE: MRI of the brain was performed prior to and following the uneventful administration of 9.5 mL intravenous GADAVIST contrast according to standard protocol. COMPARISON: CT of the head from 10/23/2022. FINDINGS: Redemonstration of postoperative changes of decompressive right hemicraniectomy with expected interval evolution of the previously seen postsurgical changes along the craniectomy site. Redemonstration of extra-axial collection along the craniectomy site containing extra-axial blood products and fluid, measuring approximately 2.4 cm in thickness, (series 9, image 13), previously measured approximately 2.5 cm, grossly unchanged from prior. Interval resolution/redistribution of the previously seen foci of pneumocephalus compared to the prior CT. Interval removal of the previously seen right intracranial pressure monitor. Redemonstration of extensive cytotoxic edema in the right frontotemporoparietal regions, the right insula, and the right basal ganglia, extending along the martínez radiata and the marginally along the lateral aspect of the right centrum semiovale compatible with evolving acute right MCA territory infarction. There is persistent local mass effect on the right cerebral hemisphere with effacement of the overlaying sulci, mild external herniation of the infarcted brain through the craniectomy defect, effacement of the right lateral ventricle, and approximately 3-4 mm ryqyv-pl-njwl midline shift at the level of the foramen of Monro, (series 13, image 18),, previously measured approximately 3 mm, (series 6, image 35), when remeasured, grossly similar to the prior. Extensive susceptibility artifacts along the craniectomy site compatible with expected postsurgical changes. There are additional scattered foci of restricted diffusion in the left frontoparietal region, extending along the subcortical white matter of the lateral left frontal lobe, the right martínez radiata, and the centrum semiovale, compatible with a small evolving acute to subacute infarcts. Otherwise, no new intracranial hemorrhage is identified. The ventricular caliber appears grossly stable compared to the prior. For reference, the diameter of the left ventricular trigone measures approximately 1.2 cm, (series 4, image 33), previously measured approximately 1.3 cm, (series 4, image 19). The basal cisterns are mildly effaced. The remaining ventricles are of normal size, shape, and morphology. Diffuse leptomeningeal enhancement along the right frontotemporoparietal infarcted area compatible with expected reactive changes. No enhancing lesions are otherwise identified. The corpus callosum and sella appear normal. The posterior fossa, brainstem, and craniocervical junction appear grossly stable. The visualized portions of the orbits appear grossly unremarkable. There is mild paranasal sinus disease. There is suspected minimal opacification in the right mastoid air cells. The remaining mastoid air cells appear grossly clear. Normal flow voids are demonstrated in the carotid arteries and basilar artery. The calvarium and visualized cervical spine otherwise appear normal. Procedure Note Jasper Sifuentes MD - 10/24/2022 PROCEDURE: MRI BRAIN WWO CONTRAST, DATE/TIME OF EXAM: 10/24/2022 10:56AM, LOCATION [facility] INDICATION: I63.411: Acute cerebrovascular accident (CVA) due to embolism of right middle cerebral artery (CMS/HCC) ADDITIONAL CLINICAL INFORMATION: Ordering Provider Reason For Exam: Stroke workup Technologist Note: Does the patient have a defibrillator, pacemaker, aneurysm clips or implanted mechanical devices?->No Does the patienthave metal implants or stents?->No Additional: None. EXAMINATION: Magnetic resonance imaging (MRI) of the brain without andwith contrast CONTRAST: GADOBUTROL 1 MMOL/ML IV SSM SO:9.5 mL TECHNIQUE: MRI of the brain was performed prior to and following the uneventful administration of 9.5 mL intravenous GADAVIST contrastaccording to standard protocol. COMPARISON: CT of the head from 10/23/2022. FINDINGS: Redemonstration of postoperative changes of decompressive right hemicraniectomy with expected interval evolution of the previously seen postsurgical changes along the craniectomy site. Redemonstration of extra-axial collection along the craniectomy site containing extra-axial blood products and fluid, measuring approximately 2.4 cm in thickness, (series 9, image 13), previously measured approximately 2.5 cm, grossly unchanged from prior. Interval resolution/redistribution of thepreviously seen foci of pneumocephalus compared to the prior CT. Interval removalof the previously seen right intracranial pressure monitor. Redemonstration of extensive cytotoxic edema in the right frontotemporoparietal regions, the right insula, and the right basal ganglia, extending along the martínez radiata and the marginally along the lateral aspect of the right centrum semiovale compatible with evolving acute right MCA territory infarction. There is persistent local masseffect on the right cerebral hemisphere with effacement of the overlayingsulci, mild external herniation of the infarcted brain through the craniectomy defect, effacement of the right lateral ventricle, and approximately 3-4mm ksufp-xt-vbsb midline shift at the level of the foramen of Monro,(series 13, image 18),, previously measured approximately 3 mm, (series 6, image 35), when remeasured, grossly similar to the prior. Extensive susceptibility artifacts along the craniectomy site compatible with expected postsurgical changes. There are additional scattered foci of restricted diffusion in the left frontoparietal region, extending along the subcortical white matter ofthe lateral left frontal lobe, the right martínez radiata, and the centrum semiovale, compatible with a small evolving acute to subacute infarcts. Otherwise, no new intracranial hemorrhage is identified. The ventricular caliber appears grossly stable compared to the prior. For reference, the diameter of the left ventricular trigone measures approximately 1.2 cm, (series 4, image 33), previously measured approximately 1.3 cm, (series4, image 19). The basal cisterns are mildly effaced. The remaining ventricles are of normal size, shape, and morphology.Diffuse leptomeningeal enhancement along the right frontotemporoparietalinfarcted area compatible with expected reactive changes. No enhancing lesions are otherwise identified. The corpus callosum and sella appear normal. The posterior fossa, brainstem, and craniocervical junction appear grossly stable. The visualized portions of the orbits appear grossly unremarkable. Thereis mild paranasal sinus disease. There is suspected minimal opacificationin the right mastoid air cells. The remaining mastoid air cells appeargrossly clear. Normal flow voids are demonstrated in the carotid arteries and basilar artery. The calvarium and visualized cervical spine otherwise appear normal. IMPRESSION: 1.Redemonstration of postoperative changes of a right hemicraniectomywith expected postsurgical changes as outlined above. 2.Redemonstration of evolving large right MCA territory infarction with extensive cytotoxic edema and mild external herniation of the brainthrough the craniectomy defect. Persistent local mass effect on the rightcerebral hemisphere, effacement of the right lateral ventricle, and approximately 3-4 mm juxjr-ic-shik midline shift, grossly similar to the prior. 3.Mild dilation of the left lateral ventricle may represent subtle left ventricular entrapment, overall grossly similar to prior. 4.Additional multiple foci of abnormal diffusion within the left frontotemporal lobes with associated T2 FLAIR hyperintensityrepresenting additional small acute to subacute infarcts, likely of cardioembolic etiology. Findings communicated to Dr. Mohr by Dr. Major at 1138 hours on 10/24/2022 with readback comprehension and verification. Report dictated by Tim Major MD (resident services coordinator). I, Jasper Sifuentes MD have personally reviewed and interpretedthis examination/study. > Interpreting Provider: Jasper Sifuentes MD on 10/24/2022 1:59 PM Emir Vail MD MR ORDERABLES * (ABNORMAL) GLUCOSE - POINT OF CARE (10/24/2022 9:15 AM CDT) Pathologist [facility] Glucose WB/POC 130(H) 70 - 115 mg/dL 10/24/2022 9:16 AM CDT [facility] Specimen Type Cap Fingerstick 2022 9:16 AM CDT [facility] Blood BLOOD SPECIMEN / Unknown 10/24/2022 9:15 AM CDT 10/24/2022 9:16 AM CDT Emir Vail MD LAB - POINT OF CARE ORDERABLES [facility] [address] [address], [facility] [phone] * LAB MISC TEST (10/23/2022 8:29 PM CDT) [facility] Test Name Phosphatidylserine Antibodies, IgG and IgM 10/27/2022 12:00 PM CDT [employer] [email or web address] Test Result See Scanned Report 10/27 12:00 PM CDT [facility] Comment Ref Lab [facility] 10/27/2022 12:00 PM CDT [facility] Blood BLOOD SPECIMEN / Unknown Venipuncture / Unknown 10/23/2022 8:29 PM CDT 10/23/2022 8:54 PM CDT Emir Vail MD LAB SEND OUT [email or web address] [address] [place] [address] * (ABNORMAL) LUPUS ANTICOAGULANT PANEL (10/23/2022 8:29 PM CDT) Pathologist [facility] APTT 21.4(L) 23.0 - 38.4 Seconds 10/24/2022 10:58 AM CDT [facility] PT 13.4 12.1 - 14.8 Seconds 10/24/2022 10:58 AM [facility] INR 1.0 See Comment 10/24/2022 10:58 AM [facility] Buffer 30.2 Seconds 023 10:58 AM [facility] Phospholipid 26.9 Seconds 10/24/2022 10:58 AM [facility] [place] Delta 3.3 <8.0 Seconds 10/24/2022 10:58 AM [facility] Interpretation [place] Negative 10/24/2022 10:58 AM [facility] Comment:Up to 15-20% of douglas ents with [...] Vail MD LAB - HEMATOLOGY ORD ERABLES [facility] [address] [place] [address], [facility] [phone] * CARDIOLIPIN ANTIBODY IGM (10/23/2022 8:29 PM CDT) Cardiolipin Antibody IgM <10 <=12 MPL 10/26/2022 1:32 AM CDT [facility] ([facility]) Comment: INTERPRETIVE INFORMATION: Anti-Cardiolipin IgM <=12 MPL: [...] other criteria phospholipid antibody tests. Performed By: [employer] [facility] [address] [place] [address] Microfilm Mounter: Boo Bond MD, PhD CLIA Number: [id number] Blood BLOOD SPECIMEN / Unknown Venipuncture / Unknown 10/23/2022 8:29 PM CDT 10/23/2022 9:18 PM CDT Emir Vail MD LAB - SEROLOGY ORDER NISSA [facility] ([facility]) [address] [place] [address], [facility] * CARDIOLIPIN ANTIBODY IGG (10/23/2022 8:29 PM CDT) [facility] Cardiolipin Antibody IgG <10 <=14 GPL 10/26/2022 1:32 AM CDT [facility] ([facility]) Comment: INTERPRETIVE INFORMATION: Anti-Cardiolipin IgG Ab <=14 [...] other criteria phospholipid antibody tests. Performed By: [facility] [address] [place] [address] Microfilm Mounter: Boo Bond MD, PhD CLIA Number: [id number] Blood BLOOD SPECIMEN / Unknown Venipuncture / Unknown 10/23/2022 8:29 PM CDT 10/23/2022 9:19 PM CDT Emir Vail MD LAB - SEROLOGY ORDER NISSA Performing Organization Address [facility] de Phone Number [facility]) [address] [place] [address] * CARDIOLIPIN ANTIBODY IGA (10/23/2022 8:29 PM CDT) Cardiolipin Antibody IgA <10 <=11 APL 10/26/2022 9:11 AM CDT [facility] ([facility]) Comment: INTERPRETIVE INFORMATION: Cardiolipin Antibodies, IgA <=11 APL: Negative 12-19 APL: Indeterminate 20-80 APL: Low to Moderately ??Positive 81 APL or above: High Positive Performed By: [facility] [address] [place] [address] Microfilm Mounter: Boo Bond MD, PhD CLIA Number: [id number] Blood BLOOD SPECIMEN / Unknown Venipuncture / Unknown 10/23/2022 8:29 PM CDT 10/23/2022 9:19 PM CDT Emir Vail MD LAB - SEROLOGY ORDER NISSA Performing Organization Address [facility] Co de Phone Number [facility]) [address] [place] [address] * BETA-2 GLYCOPROTEIN 1 ANTIBODY IGG/IGM PANEL (10/23/2022 8:29 PM CDT) Beta-2 Glycoprotein Antibody IgG <10 <=20 SGU 10/26/2022 1:43 AM CDT [facility] ([facility]) Beta-2 Glycoprotein Antibody IgM <10 <=20 SMU 10/26/2022 1:43 AM CDT [facility] [employer] ([facility]) Comment: INTERPRETIVE INFORMATION: [id number] I, IgG and IgM Antibody The persistent [...] other criteria phospholipid antibody tests. Performed By: [facility] [address] [place] [address] Microfilm Mounter: Boo Bond MD, PhD CLIA Number: [id number] Blood BLOOD SPECIMEN / Unknown Venipuncture / Unknown 10/23/2022 8:29 PM CDT 10/23/2022 9:19 PM CDT Emir Vail MD LAB - CHEMISTRY BIBIANA BLACKMAN [facility]) [address] [place] [address], [facility] * BETA-2 GLYCOPROTEIN 1 ANTIBODY IGA (10/23/2022 8:29 PM CDT) [facility] Beta-2 Glycoprotein Antibody IgA <10 <=20 TRUDI 10/26/2022 1:43 AM CDT [facility] [employer] ([facility]) Comment: Performed By: [facility] [address] [place] [address] Microfilm Mounter: Boo Bond MD, PhD CLIA Number: [id number] Blood BLOOD SPECIMEN / Unknown Venipuncture / Unknown 10/23/2022 8:29 PM CDT 10/23/2022 9:18 PM CDT Emir Vail MD LAB - SEROLOGY ORDER NISSA [facility]) [address] [place] [address], [facility] * (ABNORMAL) BASIC METABOLIC PANEL (CALCIUM TOTAL) (10/23/2022 8:29 PM CDT) BUN 14 7 - 26 mg/dL 10/23/2022 9:14 PM [facility] Creatinine 0.56 0.56 - 0.96 mg/dL 10/23/2022 9:14 PM [facility] Sodium 140 136 - 145 mmol/L 10/23/2022 9:14 PM [facility] Potassium 4.1 3.5 - 4.5 mmol/L 10/23/2022 9:14 PM [facility] Chloride 110(H) 98 - 107 mmol/L 10/23/2022 9:14 PM [facility] CO2 23 22 - 29 mmol/L 10/23/2022 9:14 PM [facility] Glucose 119(H) 70 - 115 mg/dL 10/23/2022 9:14 PM [facility] Calcium 8.5 8.4 - 10.2 mg/dL 10/23/2022 9:14 PM [facility] Anion Gap 11 8 - 18 10/23/2022 9:14 PM [facility] BUN/Creatinine Ratio 25(H) 7 - 23 10/23/2022 9:14 PM [facility] Osmolality Calculated 292 270 - 300 mOsm/kg 10/23/2022 9:14 PM [facility] eGFR by CKD-EPI >90 >=90 mL/min/1.7 3 m2 10/23/2022 9:14 PM [facility] Blood BLOOD SPECIMEN / Unknown Venipuncture / Unknown 10/23/2022 8:29 PM CDT 10/23/2022 8:48 PM CDT Emir Vail MD LAB - CHEMISTRY BIBIANA BLACKMAN [facility] [address] [place] [address], [facility] [phone] * (ABNORMAL) CBC W AUTO DIFFERENTIAL (10/23/2022 8:29 PM CDT) WBC 17.4(H) 3.5 - 10.5 10? 3 /uL 10/23/2022 9:10 PM T [facility] RBC 2.58(L) 3.80 - 5.20 10? 6 /uL 10/23/2022 9:10 PM [facility] Hemoglobin 8.0(L) 12.0 - 15.6 g/dL 10/23/2022 9:10 PM [facility] Hematocrit 24.4(L) 35.0 - 45.0 % 10/23/2022 9:10 PM [facility] MCV 94.6 80.7 - 98.3 fL 10/23/2022 9:10 PM [facility] MCH 31.0 26.7 - 34.0 pg 10/23/2022 9:10 PM [facility] MCHC 32.8 30.8 - 35.9 g/dL 10/23/2022 9:10 PM [facility] RDW-SD 46.7 36.0 - 50.0 fL 10/23/2022 9:10 PM [facility] RDW-CV 13.6 11.2 - 14.8 % 10/23/2022 9:10 PM [facility] Platelet Count 310 150 - 400 10? 3 /uL 10/23/2022 9:10 PM [facility] MPV 10.4 9.4 - 12.9 fL 10/23/2022 9:10 PM [facility] nRBC Absolute 0.03(H) 0 10? 3 /uL 10/23/2022 9:10 PM [facility] nRBC Auto 0.2(H) 0 /100 WBC 10/23/2022 9:10 PM [facility] Neutrophils % 69.8 35.0 - 70.0 % 10/23/2022 9:10 PM [facility] Lymphocytes % 19.2(L) 20.0 - 43.0 % 10/23/2022 9:10 PM [facility] Monocytes % 8.8 5.0 - 13.0 % 10/23/2022 9:10 PM [facility] Eosinophils % 1.1 0.0 - 6.0 % 10/23/2022 9:10 PM [facility] Basophil % 0.2 0.0 - 2.0 % 10/23/2022 9:10 PM [facility] Neutrophils Absolute 12.14(H) 1.60 - 7.00 10? 3 /uL 10/23/2022 9:10 PM [facility] Lymphocyte Absolute 3.33 1.10 - 3.90 10? 3 /uL 10/23/2022 9:10 PM [facility] Monocytes Absolute 1.52(H) 0.26 - 1.07 10? 3 /uL 10/23/2022 9:10 PM [facility] Eosinophils Absolute 0.19 0.00 - 0.47 10? 3 /uL 10/23/2022 9:10 PM [facility] Basophils Absolute 0.04 0.00 - 0.08 10? 3 /uL 10/23/2022 9:10 PM [facility] Immature Granulocytes % 0.9 0.0 - 1.0 % 10/23/2022 9:10 PM [facility] Immature Granulocytes Absolute 0.15 10/23/2022 9:10 PM [facility] Blood BLOOD SPECIMEN / Unknown Venipuncture / Unknown 10/23/2022 8:29 PM CDT 10/23/2022 8:58 PM T Emir Vail MD LAB - HEMATOLOGY ORD ERABLES [facility] [address] [place] [address], [place] [phone] * PHOSPHORUS BLOOD (10/23/2022 8:29 PM CDT) Phosphorus 3.1 2.9 - 5.1 mg/dL 10/23/2022 9:14 PM CDT [facility] Blood BLOOD SPECIMEN / Unknown Venipuncture / Unknown 10/23/2022 8:29 PM CDT 10/23/2022 8:48 PM CDT Emir Vail MD LAB - CHEMISTRY [facility] [address] [address], [place] [phone] * MAGNESIUM BLOOD (10/23/2022 8:29 PM CDT) Magnesium 2.1 1.6 - 2.6 mg/dL 10/23/2022 9:14 PM CDT [facility] Blood BLOOD SPECIMEN / Unknown Venipuncture / Unknown 10/23/2022 8:29 PM CDT 10/23/2022 8:48 PM CDT Emir Vail MD LAB - CHEMISTRY [facility] Performing Organization Address City/[facility]/ZIP Co de Phone Number [address] [address], [place] [phone] * GLUCOSE - POINT OF CARE (10/23/2022 5:57 PM CDT) Glucose WB/POC 105 70 - 115 mg/dL 10/23/2022 5:58 PM CDT [facility] Specimen Type Cap Fingerstick 2022 5:58 PM CDT [facility] Blood BLOOD SPECIMEN / Unknown 10/23/2022 5:57 PM CDT 10/23/2022 5:58 PM CDT Emir Vail MD LAB - POINT OF CARE ORDERABLES [address] [address], [facility] [phone] * (ABNORMAL) C-REACTIVE PROTEIN (10/23/2022 3:47 PM CDT) C-Reactive Protein 12.1(H) <=0.5 mg/dL 10/23/2022 4:19 PM CDT [facility] Blood BLOOD SPECIMEN / Unknown Line Draw / Unknown 10/23/2022 3:47 PM CDT 10/23/2022 3:55 PM CDT Emir Vail MD LAB - CHEMISTRY ORDE RABLES [address] [address], [facility] [phone] * (ABNORMAL) ERYTHROCYTE SEDIMENTATION RATE (10/23/2022 3:47 PM CDT) Erythrocyte Sedimentation Rate Westergren 55(H) 0 - 20 MM/HR 10/23/2022 4:25 PM CDT [facility] Blood BLOOD SPECIMEN / Unknown Line Draw / Unknown 10/23/2022 3:47 PM CDT 10/23/2022 3:59 PM CDT Emir Vail MD LAB - HEMATOLOGY ORD ERABLES [address] [address], [facility] [phone] * CT CARDIAC ANGIO STRUCT MORPH (10/23/2022 [...] DATE/TIME OF EXAM: ??10/23/2022 3:08 PM, LOCATION ??[facility] INDICATION: I63.411: Acute cerebrovascular accident (CVA) due [...] DATE/TIME OF EXAM: 10/23/2022 3:08 PM, LOCATION [facility] INDICATION: I63.411: Acute cerebrovascular accident (CVA) due [...] AM Emir Vail MD CT ORDERABLES * XR ABDOMEN KUB PORTABLE (10/23/2022 1:52 PM CDT) Anatomical Region Laterality Modality Abdomen Radiographic Irene ging 10/23/2022 2:39 PM CDT Narrative 10/24/2022 8:31 AM CDT PROCEDURE: ??XR ABDOMEN KUB PORTABLE, DATE/TIME OF EXAM: ??10/23/2022 1:53 PM, LOCATION ??[facility] INDICATION: R47.1: Dysarthria ADDITIONAL CLINICAL INFORMATION: Ordering Provider Reason For Exam: ??NGT placement COMPARISON: Portable KUB dated 10/20/2022 FINDINGS/IMPRESSION: The enteric tube courses below the diaphragm with tip superimposing the stomach. Drafted by Agnes Olmos DO (resident services coordinator). Vanessa Ornelas MD have personally reviewed and interpreted this examination/study. > Interpreting Provider: Vanessa Kumar MD on 10/24/2022 8:31 AM Procedure Note Vanessa Kumar MD - 10/24/2022 PROCEDURE: XR ABDOMEN KUB PORTABLE, DATE/TIME OF EXAM: 10/23/2022 1:53PM, LOCATION [facility] INDICATION: R47.1: Dysarthria ADDITIONAL CLINICAL INFORMATION: Ordering Provider Reason For Exam: NGT placement COMPARISON: Portable KUB dated 10/20/2022 FINDINGS/IMPRESSION: The enteric tube courses below the diaphragm with tip superimposing the stomach. Drafted by Agnes Olmos DO (resident services coordinator). Vanessa Ornelas MD have personally reviewed and interpreted this examination/study. > Interpreting Provider: Vanessa Kumar MD on 38:31 AM Emir Vail MD DIAGNOSTIC IMAGING O DIONI * MRSA DNA PCR (10/23/2022 12:34 PM CDT) MRSA DNA by PCR Not detected Not detected 10/23/2022 8:44 PM CDT [facility] Microbiology SPECIMEN FROM NASAL FOSSAE / Unknown Collection / Unknown 10/23/2022 12:34 PM CDT 10/23/2022 12:50 PM CDT Narrative [facility] - 10/23/2022 8:44 PM CDT Methicillin-resistant Staphylococcus aureus (MRSA) DNA is not detected (presumed not colonized with MRSA). Emir Vail MD LAB - MICROBIOLOGY O DIONI [facility] [address] [place], [place] [address], [facility] [phone] * CULTURE BLOOD (10/23/2022 12:16 PM CDT) Culture No growth day 5 ROSELIA 10/28/2022 5:02 PM CDT [facility] Blood PERIPHERAL BLOOD / Unknown Venipuncture / Unknown 10/23/2022 12:16 PM CDT 10/23/2022 12:28 PM CDT Emir Vail MD LAB - MICROBIOLOGY O DIONI [facility] [address] [place] [address], [facility] [phone] * CULTURE BLOOD (10/23/2022 12:05 PM CDT) [facility] Culture No growth day 5 ROSELIA 10/28/2022 5:02 PM CDT [facility] Blood PERIPHERAL BLOOD / Unknown Venipuncture / Unknown 10/23/2022 12:05 PM CDT 10/23/2022 12:28 PM CDT Emir Vail MD LAB - MICROBIOLOGY O DIONI Performing Organization Address City/[facility]/ZIP Co de Phone Number [facility] [address] [place] [address], [facility] [phone] * GLUCOSE - POINT OF CARE (10/23/2022 11:24 AM CDT) [facility] Glucose WB/POC 113 70 - 115 mg/dL 10/23/2022 11:25 AM CDT [facility] Specimen Type Cap Fingerstick 2022 11:25 AM CDT [facility] Blood BLOOD SPECIMEN / Unknown 10/23/2022 11:24 AM CDT 10/23/2022 11:25 AM CDT Emir Vail MD LAB - POINT OF CARE ORDERABLES [facility] [address] [place] [address], [place] [phone] * ECHO SARAH COMPLETE (10/23/2022 9:07 AM CDT) BSA 2.07 m2 [facility] CV FUJ I PACS Sinus of Valsalva 2.31 cm [facility] CV FUJI PACS ST junction 1.878 cm SSM CV F UJI PACS Max Age Predicted HR 181 S[facility] CV FUJI PACS Target HR 154 SSM CV FUJ I PACS Anatomical Region Laterality Modality Ultrasound Narrative 10/24/2022 9:42 AM CDT ?Aortic??Valve: Valve structure is normal. There is a 6 x 7 mm independently mobile mass on the left coronary cusp. Differential includes vegetation (non-bacterial thrombotic endocarditis, infective endocarditis) vs less likely fibroelastoma. ?Left??Atrium: No right to left intracardiac or extracardiac shunt present viewable with agitated saline, color Doppler and Valsalva maneuver. Normal sized appendage. Normal appendage flow velocity. No thrombus present in the left atrial appendage (MADELEINE). ?Left??Ventricle: Left ventricle size is normal. Hyperdynamic systolic function with a visually estimated EF of 75 - 80%. ?No hemodynamically significant valvular abnormality. Left Ventricle Left ventricle size is normal. Hyperdynamic systolic function with a visually estimated EF of 75 - 80%. Right Ventricle Right ventricle size is normal. Normal systolic function. Left Atrium Left atrium size is normal. No right to left intracardiac or extracardiac shunt present viewable with agitated saline, color Doppler and Valsalva maneuver. Normal sized appendage. Normal appendage flow velocity. No thrombus present in the left atrial appendage (MADELEINE). Normal flow patterns and equivocal dominance in the pulmonary veins. Right Atrium Right atrium size is normal. Mitral Valve Valve structure is normal. No regurgitation. No stenosis. Tricuspid Valve Valve structure is normal. No regurgitation. No stenosis. Aortic Valve Valve structure is normal. There is a 6 x 7 mm independently mobile mass on the left coronary cusp. Differential includes vegetation (non-bacterial thrombotic endocarditis, infective endocarditis) vs less likely fibroelastoma. No regurgitation. No stenosis. Pulmonic Valve Valve structure is normal. No regurgitation. No stenosis. Ascending Aorta Normal sized sinus of Valsalva (aortic root). Free of atherosclerosis Pericardium The pericardium is normal. No pericardial effusion. Study Details A complete echo was performed using complete 2D, color flow Doppler and spectral Doppler. During the study the esophageal, transgastric and descending thoracic views were captured. Saline (bubble) contrast was used during the study. Patient declined ultrasound contrast. The probe was inserted by the credit union field examiner. There was moderate probe insertion difficulty. Moderate sedation was given. Sedation was managed by the credit union field examiner. Lidocaine administered during the study. There were no complications during the procedure. Anesthesia provided by continuous infusion of dexmedetomidine and propofol, details in MAR. 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 Endotracheal tube terminates in the midthoracic trachea. There is no focal consolidation. No pleural effusion or pneumothorax. The cardiomediastinal silhouette is normal. No acute osseous abnormality. Report dictated by Agnes Olmos DO (resident services coordinator). IVanessa MD have personally reviewed and interpreted this examination/study. 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 Endotracheal tube terminates in the midthoracic trachea. There is no focal consolidation. No pleural effusion or pneumothorax.The cardiomediastinal silhouette is normal. No acute osseous abnormality. Report dictated by Agnes Olmos DO (resident services coordinator). Vanessa Ornelas MD have personally reviewed and interpreted this examination/study. > Interpreting Provider: Vanessa Kumar MD on 31:03 PM Shahbaz Bowen MD DIAGNOSTIC IMAGING O RDERABLES * CT HEAD WO CONTRAST (10/23/2022 5:52 AM CDT) Anatomical Region Laterality Modality Head Computed Tomogra phy 10/23/2022 7:20 AM CDT Impressions 10/23/2022 9:16 AM CDT IMPRESSION: 1.Redemonstration of postsurgical changes of decompressive craniectomy and evolving right middle cerebral artery territory infarct. 2.No hemorrhagic transformation. 3.Extensive cytotoxic edema and mass effect with approximately 2 mm midline shift, [place] similar or slightly improved from prior. 4.Stable right intracranial pressure monitor. The report is dictated by Miranda Bowen MD (resident services coordinator) Jasper Ornelas MD have personally reviewed and interpreted this examination/study. > Interpreting Provider: Jasper Sifuentes MD on 10/23/2022 9:16 AM Narrative 10/23/2022 9:16 AM CDT PROCEDURE: ??CT HEAD WO CONTRAST, DATE/TIME OF EXAM: ??10/23/2022 5:53 AM, LOCATION ??[facility] INDICATION: I63.511: Right middle cerebral artery stroke ([facility]/HCC) ADDITIONAL CLINICAL INFORMATION: Ordering Provider Reason For Exam: ??Edema Technologist Note: ??None Additional: ??None. EXAMINATION: Computed tomography (CT) of the head without contrast TECHNIQUE: CT of the head was performed without contrast according to standard protocol. CT dose reduction technique was used, including Automated Exposure Control. COMPARISON: Comparison is made with a CT head dated 10/22/2022. FINDINGS: Redemonstration of postoperative changes consistent of a right hemicraniectomy with underlying extra-axial blood products along the lateral cerebral convexity and small foci of pneumocephalus, slightly decreased or redistributed compared to prior. Unchanged appearance of a right intracranial pressure monitor. Extensive cytotoxic edema and mass effect in the right MCA territory with associated diffuse sulci effacement and right lateral ventricle effacement grossly unchanged from prior. There is a right to left midline shift measuring up to 2 mm, stable to mildly improved from prior. No new intracranial hemorrhage or intra- or extra-axial fluid collections are identified. The ventricular morphology is stable compared to prior exams. The basal cisterns are mildly effaced. The visualized portions of the orbits appear grossly unremarkable. Minimal opacification in the left ethmoid air cells. The imaged mastoid air cells appear grossly clear. A presumed nasogastric tube present. Mild dilation of the left lateral ventricle likely representing mild left ventricular entrapment. Hyperdensity along the right sylvian fissure compatible with right MCA thrombosis. No acute calvarial fracture is identified. There is soft tissue edema overlying the right hemicraniectomy site and right zygomatic region are essentially unchanged from prior. 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 EXAMINATION: Computed tomography (CT) of the head without contrast TECHNIQUE: CT of the head was performed without contrast according to standard protocol. CT dose reduction technique was used, including Automated Exposure Control. COMPARISON: Comparison is made with a CT head dated 10/22/2022. FINDINGS: Redemonstration of postoperative changes consistent of a right hemicraniectomy with underlying extra-axial blood products along the lateral cerebral convexity and small foci of pneumocephalus, slightly decreased or redistributed compared to prior. Unchanged appearance of a right intracranial pressure monitor. Extensive cytotoxic edema and mass effect in the right MCA territory with associated diffuse sulcieffacement and right lateral ventricle effacement grossly unchanged from prior.There is a right to left midline shift measuring up to 2 mm, stable to mildly improved from prior. No new intracranial hemorrhage or intra- or extra-axial fluid collections are identified. The ventricular morphologyis stable compared to prior exams. The basal cisterns are mildly effaced. The visualized portions of the orbits appear grossly unremarkable.Minimal opacification in the left ethmoid air cells. The imaged mastoid aircells appear grossly clear. A presumed nasogastric tube present. Mild dilationof the left lateral ventricle likely representing mild left ventricular entrapment. Hyperdensity along the right sylvian fissure compatible with right MCA thrombosis. No acute calvarial fracture is identified. There is soft tissue edema overlying the right hemicraniectomy site and right zygomatic region are essentially unchanged from prior. IMPRESSION: 1.Redemonstration of postsurgical changes of decompressive craniectomyand evolving right middle cerebral artery territory infarct. 2.No hemorrhagic transformation. 3.Extensive cytotoxic edema and mass effect with approximately 2 mmmidline shift, [place] similar or slightly improved from prior. 4.Stable right intracranial pressure monitor. The report is dictated by Miranda Bowen MD (resident services coordinator) I, Jasper Sifuentes MD have personally reviewed and interpretedthis examination/study. > Interpreting Provider: Jasper Sifuentes MD on 10/23/2022 9:16 AM Emir Vail MD CT ORDERABLES * (ABNORMAL) BASIC METABOLIC PANEL (CALCIUM TOTAL) (10/23/2022 1:29 AM CDT) BUN 13 7 - 26 mg/dL 10/23/2022 2:09 AM [facility] Creatinine 0.51(L) 0.56 - 0.96 mg/dL 10/23/2022 2:09 AM [facility] Sodium 140 136 - 145 mmol/L 10/23/2022 2:09 AM [facility] Potassium 3.4(L) 3.5 - 4.5 mmol/L 10/23/2022 2:09 AM [facility] Chloride 108(H) 98 - 107 mmol/L 10/23/2022 2:09 AM [facility] CO2 25 22 - 29 mmol/L 10/23/2022 2:09 AM [facility] Glucose 132(H) 70 - 115 mg/dL 10/23/2022 2:09 AM [facility] Calcium 8.3(L) 8.4 - 10.2 mg/dL 10/23/2022 2:09 AM [facility] Anion Gap 10 8 - 18 10/23/2022 2:09 AM [facility] BUN/Creatinine Ratio 25(H) 7 - 23 10/23/2022 2:09 AM [facility] Osmolality Calculated 292 270 - 300 mOsm/kg 10/23/2022 2:09 AM [facility] eGFR by CKD-EPI >90 >=90 mL/min/1.7 3 m2 10/23/2022 2:09 AM [facility] Blood BLOOD SPECIMEN / Unknown Venipuncture / Unknown 10/23/2022 1:29 AM CDT 10/23/2022 1:40 AM T Emir Vail MD LAB - CHEMISTRY ORDE [facility] Organization Address City/State/ZIP Co de Phone Number [facility] [address] [place] [address], [facility] [phone] * (ABNORMAL) CBC W AUTO DIFFERENTIAL (10/23/2022 1:29 AM CDT) WBC 16.7(H) 3.5 - 10.5 10? 3 /uL 10/23/2022 1:43 AM [facility] RBC 2.52(L) 3.80 - 5.20 10? 6 /uL 10/23/2022 1:43 AM [facility] Hemoglobin 7.8(L) 12.0 - 15.6 g/dL 10/23/2022 1:43 AM [facility] Hematocrit 23.8(L) 35.0 - 45.0 % 10/23/2022 1:43 AM [facility] MCV 94.4 80.7 - 98.3 fL 10/23/2022 1:43 AM [facility] MCH 31.0 26.7 - 34.0 pg 10/23/2022 1:43 AM [facility] MCHC 32.8 30.8 - 35.9 g/dL 10/23/2022 1:43 AM [facility] RDW-SD 46.7 36.0 - 50.0 fL 10/23/2022 1:43 AM [facility] RDW-CV 13.5 11.2 - 14.8 % 10/23/2022 1:43 AM [facility] Platelet Count 265 150 - 400 10? 3 /uL 10/23/2022 1:43 AM [facility] MPV 10.3 9.4 - 12.9 fL 10/23/2022 1:43 AM [facility] nRBC Absolute 0.00 0 10? 3 /uL 10/23/2022 1:43 AM [facility] nRBC Auto 0.0 0 /100 WBC 10/23/2022 1:43 AM [facility] Neutrophils % 70.7(H) 35.0 - 70.0 % 10/23/2022 1:43 AM [facility] Lymphocytes % 18.4(L) 20.0 - 43.0 % 10/23/2022 1:43 AM [facility] Monocytes % 9.2 5.0 - 13.0 % 10/23/2022 1:43 AM [facility] Eosinophils % 0.6 0.0 - 6.0 % 10/23/2022 1:43 AM [facility] Basophil % 0.3 0.0 - 2.0 % 10/23/2022 1:43 AM [facility] Neutrophils Absolute 11.79(H) 1.60 - 7.00 10? 3 /uL 10/23/2022 1:43 AM [facility] Lymphocyte Absolute 3.07 1.10 - 3.90 10? 3 /uL 10/23/2022 1:43 AM [facility] Monocytes Absolute 1.54(H) 0.26 - 1.07 10? 3 /uL 10/23/2022 1:43 AM [facility] Eosinophils Absolute 0.10 0.00 - 0.47 10? 3 /uL 10/23/2022 1:43 AM CDT [facility] Basophils Absolute 0.05 0.00 - 0.08 10? 3 /uL 10/23/2022 1:43 AM CDT [facility] Immature Granulocytes % 0.8 0.0 - 1.0 % 10/23/2022 1:43 AM CDT [facility] Immature Granulocytes Absolute 0.13 10/23/2022 1:43 AM CDT [facility] Blood BLOOD SPECIMEN / Unknown Venipuncture / Unknown 10/23/2022 1:29 AM CDT 10/23/2022 1:40 AM CDT Emir Vail MD LAB - HEMATOLOGY ORD DIMAS [facility] [address] [place] [address], [place] [phone] * PHOSPHORUS BLOOD (10/23/2022 1:29 AM CDT) Phosphorus 3.4 2.9 - 5.1 mg/dL 10/23/2022 2:09 AM CDT [facility] Blood BLOOD SPECIMEN / Unknown Venipuncture / Unknown 10/23/2022 1:29 AM CDT 10/23/2022 1:40 AM CDT Emir Vail MD LAB - CHEMISTRY [facility] Performing Organization Address City/[facility]/ZIP Co de Phone Number [facility] [address] [place] [address], [place] [phone] * MAGNESIUM BLOOD (10/23/2022 1:29 AM CDT) Magnesium 2.0 1.6 - 2.6 mg/dL 10/23/2022 2:09 AM CDT [facility] Blood BLOOD SPECIMEN / Unknown Venipuncture / Unknown 10/23/2022 1:29 AM CDT 10/23/2022 1:40 AM CDT Emir Vial MD LAB - CHEMISTRY [facility] BL[facility] [address] [place] [address], [place] [phone] * (ABNORMAL) GLUCOSE - POINT OF CARE (10/22/2022 11:00 PM CDT) Glucose WB/POC 124(H) 70 - 115 mg/dL 10/22/2022 11:05 PM CDT [facility] Specimen Type Cap Fingerstick 2022 11:05 PM CDT [facility] Blood BLOOD SPECIMEN / Unknown 10/22/2022 11:00 PM CDT 10/22/2022 11:05 PM CDT Emir Vail MD LAB - POINT OF CARE ORDERABLES Performing Organization Address City/[facility]/ZIP Co de Phone Number [address] [address], [place] [phone] * (ABNORMAL) GLUCOSE - POINT OF CARE (10/22/2022 5:41 PM CDT) Glucose WB/POC 127(H) 70 - 115 mg/dL 10/22/2022 5:42 PM CDT [facility] Specimen Type Cap Fingerstick 2022 5:42 PM CDT [facility] Blood BLOOD SPECIMEN / Unknown 10/22/2022 5:41 PM CDT 10/22/2022 5:42 PM CDT Emir Vail MD LAB - POINT OF CARE ORDERABLES [facility] [address] [place] [address], [place] [phone] * GLUCOSE - POINT OF CARE (10/22/2022 2:57 PM CDT) Glucose WB/POC 98 70 - 115 mg/dL 10/22/2022 2:59 PM CDT [facility] Specimen Type Cap Fingerstick 2022 2:59 PM CDT [facility] Blood BLOOD SPECIMEN / Unknown 10/22/2022 2:57 PM CDT 10/22/2022 2:59 PM CDT Emir Vail MD LAB - POINT OF CARE ORDERABLES [facility] [address] [place] [address], [facility] [phone] * CT HEAD WO CONTRAST (10/22/2022 2:32 PM CDT) Anatomical Region Laterality Modality Head Computed Tomogra phy 10/22/2022 2:38 PM CDT Impressions 10/22/2022 3:10 PM CDT IMPRESSION: 1.Stable appearance of postsurgical changes of decompressive right hemicraniectomy for evolving right middle cerebral artery territory infarct. There is significant edema and mass effect with approximately 4 mm of midline shift, unchanged from prior. No evidence of new acute intracranial hemorrhage. Report dictated by Lorenzo Horta MD (nursing resident). I, Lonnie Rae MD have personally reviewed and interpreted this examination/study. > Interpreting Provider: Lonnie Rae MD on 10/22/2022 3:10 PM Narrative 10/22/2022 3:10 PM CDT PROCEDURE: ??CT HEAD WO CONTRAST DATE/TIME OF EXAM: ??10/22/2022 2:33 PM CLINICAL INFORMATION: None relevant/not provided if blank. 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 FINDINGS: Redemonstration of post surgical changes of a right hemicraniectomy, and a right MCA infarct. Stable appearance of right intracranial pressure monitor. There are extra-axial blood products along the right lateral cerebral convexity at the craniectomy site with associated pneumocephalus consistent with postsurgical changes. There is extensive edema and mass effect in the right MCA territory. There is sulcal effacement and effacement of the right lateral ventricle. There is right to left midline shift measuring up to 4 mm, stable from prior There is no evidence of new acute intracranial hemorrhage. The ventricular morphology is stable compared to prior examination. The basilar cisterns are patent. The orbits appear normal. The paranasal sinuses are clear. The mastoid air cells are clear. Procedure Note Lonnie Rae MD - 10/22/2022 PROCEDURE: CT HEAD WO CONTRAST DATE/TIME OF EXAM: 10/22/2022 2:33 PM CLINICAL INFORMATION: None relevant/not provided if blank. 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 FINDINGS: Redemonstration of post surgical changes of a right hemicraniectomy, starr right MCA infarct. Stable appearance of right intracranial pressure monitor. There are extra-axial blood products along the right lateral cerebral convexity at the craniectomy site with associatedpneumocephalus consistent with postsurgical changes. There is extensive edema and mass effect in the right MCA territory.There is sulcal effacement and effacement of the right lateral ventricle.There is right to left midline shift measuring up to 4 mm, stable from prior There is no evidence of new acute intracranial hemorrhage. Theventricular morphology is stable compared to prior examination. The basilar cisterns are patent. The orbits appear normal. The paranasal sinuses are clear.The mastoid air cells are clear. IMPRESSION: 1.Stable appearance of postsurgical changes of decompressive right hemicraniectomy for evolving right middle cerebral artery territory infarct. There is significant edema and mass effect with approximately 4mm of midline shift, unchanged from prior. No evidence of new acute intracranial hemorrhage. Report dictated by Lorenzo Horta MD (nursing resident). I, Lonnie Rae MD have personally reviewed and interpreted this examination/study. > Interpreting Provider: Lonnie Rae MD on 10/22/2022 3:10 PM Emir Vail MD CT ORDERABLES * GLUCOSE - POINT OF CARE (10/22/2022 8:58 AM CDT) Glucose WB/POC 109 70 - 115 mg/dL 10/22/2022 8:59 AM CDT [facility] Specimen Type Cap Fingerstick 2022 8:59 AM CDT [facility] Blood BLOOD SPECIMEN / Unknown 10/22/2022 8:58 AM CDT 10/22/2022 8:59 AM CDT Emir Vail MD LAB - POINT OF CARE ORDERABLES [facility] [address] [place] [address], [facility] [phone] * CT HEAD WO CONTRAST (10/22/2022 5:35 AM CDT) Anatomical Region Laterality Modality Head Computed Tomogra phy 10/22/2022 3:16 PM CDT Impressions 10/22/2022 3:18 PM CDT IMPRESSION: 1.Redemonstration of postsurgical changes of decompressive right hemicraniectomy for evolving right middle cerebral artery territory infarct. There is significant edema and mass effect with approximately 4 mm of midline shift, unchanged from prior. No evidence of new acute intracranial hemorrhage. 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 COMPARISON: No prior study is available for comparison at the time of this dictation. FINDINGS: Redemonstration of post surgical changes of a right hemicraniectomy, and a right MCA infarct. Stable appearance of right intracranial pressure monitor. There are extra-axial blood products along the right lateral cerebral convexity at the craniectomy site with associated pneumocephalus consistent with postsurgical changes. There is extensive edema and mass effect in the right MCA territory. There is sulcal effacement and effacement of the right lateral ventricle. There is right to left midline shift measuring up to 4 mm, stable from prior There is no evidence of new acute intracranial hemorrhage. The ventricular morphology is stable compared to prior examination. The basilar cisterns are patent. The orbits appear normal. The paranasal sinuses are clear. The mastoid air cells are clear. 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 COMPARISON: No prior study is available for comparison at the time ofthis dictation. FINDINGS: Redemonstration of post surgical changes of a right hemicraniectomy, starr right MCA infarct. Stable appearance of right intracranial pressure monitor. There are extra-axial blood products along the right lateral cerebral convexity at the craniectomy site with associatedpneumocephalus consistent with postsurgical changes. There is extensive edema and mass effect in the right MCA territory.There is sulcal effacement and effacement of the right lateral ventricle.There is right to left midline shift measuring up to 4 mm, stable from prior There is no evidence of new acute intracranial hemorrhage. Theventricular morphology is stable compared to prior examination. The basilar cisterns are patent. The orbits appear normal. The paranasal sinuses are clear.The mastoid air cells are clear. IMPRESSION: 1.Redemonstration of postsurgical changes of decompressive right hemicraniectomy for evolving right middle cerebral artery territory infarct. There is significant edema and mass effect with approximately 4mm of midline shift, unchanged from prior. No evidence of new acute intracranial hemorrhage. > Interpreting Provider: Lonnie Rae MD on 10/22/2022 3:18 PM Emir Vail MD CT ORDERABLES * PLATELET COUNT AUTO CITRATED BLOOD (10/22/2022 1:53 AM CDT) Platelet Count Citrated Blood 199 150 - 400 10? 3 /uL 10/22/2022 2:21 AM CDT [facility] Blood BLOOD SPECIMEN / Unknown Venipuncture / Unknown 10/22/2022 1:53 AM CDT 10/22/2022 2:05 AM CDT Emir Vail MD LAB - HEMATOLOGY ORD ERABLES Performing Organization Address City/[facility]/ZIP Co de Phone Number [facility] [address] [place] [address], [facility] [phone] * (ABNORMAL) GLUCOSE - POINT OF CARE (10/21/2022 11:18 PM CDT) Glucose WB/POC 171(H) 70 - 115 mg/dL 10/21/2022 11:23 PM CDT [facility] Specimen Type Venous 10/21/2022 11:23 PM CDT [facility] Blood BLOOD SPECIMEN / Unknown 10/21/2022 11:18 PM CDT 10/21/2022 11:23 PM CDT Emir Vail MD LAB - POINT OF CARE ORDERABLES [facility] [address] [place] [address], [facility] [phone] * (ABNORMAL) BASIC METABOLIC PANEL (CALCIUM TOTAL) (10/21/2022 11:16 PM CDT) BUN 16 7 - 26 mg/dL 10/21/2022 11:51 PM T [facility] Creatinine 0.65 0.56 - 0.96 mg/dL 10/21/2022 11:51 PM T [facility] Sodium 142 136 - 145 mmol/L 10/21/2022 11:51 PM T [facility] Potassium 3.7 3.5 - 4.5 mmol/L 10/21/2022 11:51 PM T [facility] Chloride 111(H) 98 - 107 mmol/L 10/21/2022 11:51 PM T [facility] CO2 20(L) 22 - 29 mmol/L 10/21/2022 11:51 PM T [facility] Glucose 120(H) 70 - 115 mg/dL 10/21/2022 11:51 PM [facility] Calcium 8.0(L) 8.4 - 10.2 mg/dL 10/21/2022 11:51 PM [facility] Anion Gap 15 8 - 18 10/21/2022 11:51 PM [facility] BUN/Creatinine Ratio 25(H) 7 - 23 10/21/2022 11:51 PM [facility] Osmolality Calculated 296 270 - 300 mOsm/kg 10/21/2022 11:51 PM [facility] eGFR by CKD-EPI >90 >=90 mL/min/1.7 3 m2 10/21/2022 11:51 PM [facility] Blood BLOOD SPECIMEN / Unknown Venipuncture / Unknown 10/21/2022 11:16 PM CDT 10/21/2022 11:27 PM CDT Emir Vail MD LAB - [facility]Y [facility] Organization Address City/State/[facility] Co de Phone Number [facility] [address] [place] [address], [facility] [phone] * (ABNORMAL) CBC W AUTO DIFFERENTIAL (10/21/2022 11:16 PM CDT) WBC 18.4(H) 3.5 - 10.5 10? 3 /uL 10/22/2022 12:26 AM [facility] RBC 2.62(L) 3.80 - 5.20 10? 6 /uL 10/22/2022 12:26 AM [facility] Hemoglobin 8.1(L) 12.0 - 15.6 g/dL 10/22/2022 12:26 AM [facility] Hematocrit 25.1(L) 35.0 - 45.0 % 10/22/2022 12:26 AM [facility] MCV 95.8 80.7 - 98.3 fL 10/22/2022 12:26 AM [facility] MCH 30.9 26.7 - 34.0 pg 10/22/2022 12:26 AM [facility] MCHC 32.3 30.8 - 35.9 g/dL 10/22/2022 12:26 AM [facility] RDW-SD 48.6 36.0 - 50.0 fL 10/22/2022 12:26 AM [facility] RDW-CV 14.0 11.2 - 14.8 % 10/22/2022 12:26 AM [facility] Platelet Count 10/22/2022 12:26 AM [facility] Comment: Platelets are clumped, appear as decreased on the slide. ??A blue top citrated tube is required for a platelet count. ?? Notified Shauna Martines RN ??at 1225 on 10/22/2022. MPV 10/22/2022 12:26 AM [facility] Comment:Unable to Report Immature Platelet Fraction 10/22/2022 12:26 AM [facility] Comment:Unable to Report nRBC Absolute 0.00 0 10? 3 /uL 10/22/2022 12:26 AM [facility] nRBC Auto 0.0 0 /100 WBC 10/22/2022 12:26 AM [facility] Neutrophils % 69.8 35.0 - 70.0 % 10/22/2022 12:26 AM [facility] Lymphocytes % 18.4(L) 20.0 - 43.0 % 10/22/2022 12:26 AM [facility] Monocytes % 10.9 5.0 - 13.0 % 10/22/2022 12:26 AM [facility] Eosinophils % 0.1 0.0 - 6.0 % 10/22/2022 12:26 AM [facility] Basophil % 0.1 0.0 - 2.0 % 10/22/2022 12:26 AM [facility] Neutrophils Absolute 12.87(H) 1.60 - 7.00 10? 3 /uL 10/22/2022 12:26 AM [facility] Lymphocyte Absolute 3.38 1.10 - 3.90 10? 3 /uL 10/22/2022 12:26 AM [facility] Monocytes Absolute 2.00(H) 0.26 - 1.07 10? 3 /uL 10/22/2022 12:26 AM CDT [facility] Eosinophils Absolute 0.01 0.00 - 0.47 10? 3 /uL 10/22/2022 12:26 AM CDT [facility] Basophils Absolute 0.02 0.00 - 0.08 10? 3 /uL 10/22/2022 12:26 AM CDT [facility] Immature Granulocytes % 0.7 0.0 - 1.0 % 10/22/2022 12:26 AM CDT [facility] Immature Granulocytes Absolute 0.13 10/22/2022 12:26 AM CDT [facility] Blood BLOOD SPECIMEN / Unknown Venipuncture / Unknown 10/21/2022 11:16 PM CDT 10/21/2022 11:27 PM CDT Emir Vail MD LAB - HEMATOLOGY ORD ERABLES Performing Organization Address City/[facility]/ZIP Co de Phone Number [address] [address], [facility] [phone] * (ABNORMAL) PHOSPHORUS BLOOD (10/21/2022 11:16 PM CDT) Phosphorus 2.7(L) 2.9 - 5.1 mg/dL 10/21/2022 11:51 PM CDT [facility] Blood BLOOD SPECIMEN / Unknown Venipuncture / Unknown 10/21/2022 11:16 PM CDT 10/21/2022 11:27 PM CDT Emir Vail MD LAB - CHEMISTRY ORDDanyelle BLACKMAN [address] [address], [place] [phone] * MAGNESIUM BLOOD (10/21/2022 11:16 PM CDT) Magnesium 2.2 1.6 - 2.6 mg/dL 10/21/2022 11:51 PM CDT [facility] Blood BLOOD SPECIMEN / Unknown Venipuncture / Unknown 10/21/2022 11:16 PM CDT 10/21/2022 11:27 PM CDT Emir Vail MD LAB - CHEMISTRY [place] HIRAL [address] [address], [place] [phone] * (ABNORMAL) GLUCOSE - POINT OF CARE (10/21/2022 6:43 PM CDT) Glucose WB/POC 129(H) 70 - 115 mg/dL 10/21/2022 6:44 PM CDT [facility] Specimen Type Cap Fingerstick 2022 6:44 PM CDT [facility] Blood BLOOD SPECIMEN / Unknown 10/21/2022 6:43 PM CDT 10/21/2022 6:44 PM CDT Emir Vail MD LAB - POINT OF CARE ORDERABLES [address] [address], [place] [phone] * (ABNORMAL) GLUCOSE - POINT OF CARE (10/21/2022 12:10 PM CDT) Glucose WB/POC 127(H) 70 - 115 mg/dL 10/21/2022 12:15 PM CDT [facility] Specimen Type Cap Fingerstick 2022 12:15 PM CDT [facility] Blood BLOOD SPECIMEN / Unknown 10/21/2022 12:10 PM CDT 10/21/2022 12:14 PM CDT Emir Vail MD LAB - POINT OF CARE ORDERABLES [address] [address], [place] [phone] * XR CHEST 1VW PORTABLE (10/21/2022 8:53 AM CDT) Anatomical Region Laterality Modality Chest Radiographic Irene ging 10/21/2022 2:30 PM CDT Narrative 10/21/2022 5:59 PM CDT PROCEDURE: ??XR CHEST 1VW PORTABLE, DATE/TIME OF EXAM: ??10/21/2022 8:53 AM, LOCATION ??[facility] INDICATION: R53.1: Weakness ADDITIONAL CLINICAL INFORMATION: Ordering Provider Reason For Exam: ??post intubation COMPARISON: None. Chest radiograph FINDINGS/IMPRESSION: Lines, tubes, hardware: * An endotracheal tube seen with the tip appropriately positioned in the mid thoracic trachea. * Enteric tube is seen with its tip below the diaphragm out of the field of view. Minimal right basilar airspace opacification. Otherwise, no confluent consolidation. No pneumothorax is visible. The cardiomediastinal silhouette is normal. The visible bony thorax is intact. Report dictated by Christopher Tobin MD, MD (resident services coordinator). HEATHER Ornelas MD have personally reviewed and interpreted this examination/study. > Interpreting Provider: HEATHER FREGOSO MD on 10/21/2022 5:59 PM Procedure Note Heather Fregoso MD - 10/21/2022 PROCEDURE: XR CHEST 1VW PORTABLE, DATE/TIME OF EXAM: 10/21/2022 8:53AM, LOCATION [facility] INDICATION: R53.1: Weakness ADDITIONAL CLINICAL INFORMATION: Ordering Provider Reason For Exam: post intubation COMPARISON: None. Chest radiograph FINDINGS/IMPRESSION: Lines, tubes, hardware: * An endotracheal tube seen with the tip appropriately positioned in the mid thoracic trachea. * Enteric tube is seen with its tip below the diaphragm out of the fieldof view. Minimal right basilar airspace opacification. Otherwise, no confluent consolidation. No pneumothorax is visible. The cardiomediastinalsilhouette is normal. The visible bony thorax is intact. Report dictated by Christopher Tobin MD, MD (resident services coordinator). HEATHER Ornelas MD have personally reviewed and interpreted this examination/study. > Interpreting Provider: HEATHER FREGOSO MD on 10/21/2022 5:59 PM Emir Vail MD DIAGNOSTIC IMAGING O RDERABLES * (ABNORMAL) BLOOD GASES ART + COOX PANEL (10/21/2022 8:01 AM CDT) pH Arterial 7.40 7.35 - 7.45 pH 10/21/2022 8:09 AM [facility] pO2 Arterial 143(H) 80 - 100 mmHg 10/21/2022 8:09 AM [facility] pCO2 Arterial 31(L) 35 - 45 mmHg 8:09 AM [facility] HCO3 Arterial 19.2(L) 20.0 - 30.0 mmol/L 10/21/2022 8:09 AM [facility] BE Arterial -4.8(L) -2.0 - 2.0 mmol/L 10/21/2022 8:09 AM [facility] Oxyhemoglobin Arterial 97.2 % 10/21/2022 8:09 AM [facility] Dexoyhemoglobin (HHB) % <1.0 % 10/21/2022 8:09 AM [facility] Methemoglobin <0.8 0.0 - 2.0 % 10/21/2022 8:09 AM [facility] Carboxyhemoglobin 1.4 0.0 - 2.0 % 2022 8:09 AM [facility] O2 Content Arterial 13.6 Interpret within clinical context ml/dL 10/21/2022 8:09 AM [facility] Hemoglobin by COOX 9.7(L) 12.0 - 15.6 g/dL 10/21/2022 8:09 AM [facility] O2 Saturation Arterial 99 90 - 100 % 10/21/2022 8:09 AM [facility] FI O2 Arterial 30.0 % 10/21/2022 8:09 AM [facility] Blood, arterial ARTERIAL BLOOD SPECIMEN / Unknown Arterial Puncture / Unknown 10/21/2022 8:01 AM [facility] 10/21/2022 8:05 AM [facility] - 10/21/2022 8:09 AM [facility] Carboxyhemoglobin Normal Concentration: Non-smokers: 0-2%; Smokers: 0-9%; Toxic: >20% Emir Vail MD LAB - BLOOD GASES OR DERABLES [facility] [address] [place] [address] [phone] * (ABNORMAL) CBC W AUTO DIFFERENTIAL (10/21/2022 7:53 AM T) WBC 18.6(H) 3.5 - 10.5 10? 3 /uL 10/21/2022 8:11 AM [facility] RBC 3.01(L) 3.80 - 5.20 10? 6 /uL 10/21/2022 8:11 AM [facility] Hemoglobin 9.4(L) 12.0 - 15.6 g/dL 10/21/2022 8:11 AM [facility] Hematocrit 27.9(L) 35.0 - 45.0 % 10/21/2022 8:11 AM [facility] MCV 92.7 80.7 - 98.3 fL 10/21/2022 8:11 AM [facility] MCH 31.2 26.7 - 34.0 pg 10/21/2022 8:11 AM [facility] MCHC 33.7 30.8 - 35.9 g/dL 10/21/2022 8:11 AM [facility] RDW-SD 47.8 36.0 - 50.0 fL 10/21/2022 8:11 AM [facility] RDW-CV 14.1 11.2 - 14.8 % 10/21/2022 8:11 AM [facility] Platelet Count 259 150 - 400 10? 3 /uL 10/21/2022 8:11 AM [facility] MPV 10.5 9.4 - 12.9 fL 10/21/2022 8:11 AM [facility] nRBC Absolute 0.00 0 10? 3 /uL 10/21/2022 8:11 AM [facility] nRBC Auto 0.0 0 /100 WBC 10/21/2022 8:11 AM [facility] Neutrophils % 86.9(H) 35.0 - 70.0 % 10/21/2022 8:11 AM [facility] Lymphocytes % 7.3(L) 20.0 - 43.0 % 10/21/2022 8:11 AM [facility] Monocytes % 5.1 5.0 - 13.0 % 10/21/2022 8:11 AM [facility] Eosinophils % 0.0 0.0 - 6.0 % 10/21/2022 8:11 AM [facility] Basophil % 0.1 0.0 - 2.0 % 10/21/2022 8:11 AM [facility] Neutrophils Absolute 16.12(H) 1.60 - 7.00 10? 3 /uL 10/21/2022 8:11 AM [facility] Lymphocyte Absolute 1.36 1.10 - 3.90 10? 3 /uL 10/21/2022 8:11 AM [facility] Monocytes Absolute 0.94 0.26 - 1.07 10? 3 /uL 10/21/2022 8:11 AM [facility] Eosinophils Absolute 0.00 0.00 - 0.47 10? 3 /uL 10/21/2022 8:11 AM [facility] Basophils Absolute 0.02 0.00 - 0.08 10? 3 /uL 10/21/2022 8:11 AM [facility] Immature Granulocytes % 0.6 0.0 - 1.0 % 10/21/2022 8:11 AM [facility] Immature Granulocytes Absolute 0.12 10/21/2022 8:11 AM [facility] Blood BLOOD SPECIMEN / Unknown Line Draw / Unknown 10/21/2022 7:53 AM CDT 10/21/2022 8:06 AM CDT Emir Vail MD LAB - HEMATOLOGY ORD ERABLES [facility] [address] [place] [address], [facility] [phone] * TROPONIN-I HIGH SENSITIVE REFLEX 1HOUR (10/21/2022 7:53 AM CDT) Troponin I High Sensitive <3 <=14 ng/L 10/21/2022 8:54 AM [facility] Delta Troponin I HS 10/21/2022 8:54 AM [facility] Comment:Delta value intentio princess not calculated. Baseline to 1 hour specimen collection interval exceeded. Blood BLOOD SPECIMEN / Unknown Line Draw / Unknown 10/21/2022 7:53 AM CDT 10/21/2022 8:06 AM CDT Jim Walter MD LAB - CHEMISTRY ANKUR COCHRAN Performing Organization Address [facility]/ZIP Co de Phone Number [address] [address], [facility] [phone] * (ABNORMAL) PHOSPHORUS BLOOD (10/21/2022 4:59 AM CDT) Phosphorus 2.2(L) 2.9 - 5.1 mg/dL 10/21/2022 5:46 AM CDT [facility] Blood BLOOD SPECIMEN / Unknown Venipuncture / Unknown 10/21/2022 4:59 AM CDT 10/21/2022 5:09 AM CDT Good Antunez MD LAB - CHEMISTRY BIBIANA BLACKMAN Performing Organization Address [facility] Co de Phone Number [address] [address], [place] [phone] * MAGNESIUM BLOOD (10/21/2022 4:59 AM CDT) Magnesium 2.2 1.6 - 2.6 mg/dL 10/21/2022 5:47 AM CDT [facility] Comment:Hemolysis detected i n this specimen. Hemolysis is known to cause elevations in this analyte. Caution should be exercised in the interpretation of this result. Recommend repeat testing if clinically indicated. Blood BLOOD SPECIMEN / Unknown Venipuncture / Unknown 10/21/2022 4:59 AM CDT 10/21/2022 5:09 AM CDT Good Antunez MD LAB - CHEMISTRY BIBIANA BLACKMAN Performing Organization Address [facility]/ZIP Co de Phone Number [address] [address], [facility] [phone] * (ABNORMAL) CBC W/O DIFFERENTIAL (10/21/2022 4:59 AM CDT) WBC 18.7(H) 3.5 - 10.5 10? 3 /uL 10/21/2022 5:25 AM [facility] RBC 2.98(L) 3.80 - 5.20 10? 6 /uL 10/21/2022 5:25 AM [facility] Hemoglobin 9.4(L) 12.0 - 15.6 g/dL 10/21/2022 5:25 AM [facility] Hematocrit 27.8(L) 35.0 - 45.0 % 10/21/2022 5:25 AM [facility] MCV 93.3 80.7 - 98.3 fL 10/21/2022 5:25 AM [facility] MCH 31.5 26.7 - 34.0 pg 10/21/2022 5:25 AM [facility] MCHC 33.8 30.8 - 35.9 g/dL 10/21/2022 5:25 AM [facility] RDW-SD 48.8 36.0 - 50.0 fL 10/21/2022 5:25 AM [facility] RDW-CV 14.3 11.2 - 14.8 % 10/21/2022 5:25 AM [facility] Platelet Count 260 150 - 400 10? 3 /uL 10/21/2022 5:25 AM [facility] MPV 10.6 9.4 - 12.9 fL 10/21/2022 5:25 AM [facility] nRBC Absolute 0.00 0 10? 3 /uL 10/21/2022 5:25 AM [facility] nRBC Auto 0.0 0 /100 WBC 10/21/2022 5:25 AM [facility] Blood BLOOD SPECIMEN / Unknown Venipuncture / Unknown 10/21/2022 4:59 AM CDT 10/21/2022 5:10 AM T Good Antunez MD LAB - HEMATOLOGY ORD ERABLES [facility] [address] [place] [address], [facility] [phone] * (ABNORMAL) BASIC METABOLIC PANEL (CALCIUM TOTAL) (10/21/2022 4:59 AM CDT) BUN 12 7 - 26 mg/dL 10/21/2022 5:47 AM [facility] Creatinine 0.64 0.56 - 0.96 mg/dL 10/21/2022 5:47 AM [facility] Sodium 142 136 - 145 mmol/L 10/21/2022 5:47 AM [facility] Potassium 4.8(H) 3.5 - 4.5 mmol/L 10/21/2022 5:47 AM [facility] Comment:Hemolysis detected i n this specimen. Hemolysis may cause false elevations in potassium leading to pseudohyperkalemia or masked hypokalemia. Recommend repeat testing if clinically indicated. Chloride 115(H) 98 - 107 mmol/L 10/21/2022 5:47 AM [facility] CO2 16(L) 22 - 29 mmol/L 10/21/2022 5:47 AM [facility] [facility] Glucose 169(H) 70 - 115 mg/dL 10/21/2022 5:47 AM [facility] Calcium 8.2(L) 8.4 - 10.2 mg/dL 10/21/2022 5:47 AM [facility] Anion Gap 16 8 - 18 10/21/2022 5:47 AM [facility] BUN/Creatinine Ratio 19 7 - 23 10/10 5:47 AM [facility] Osmolality Calculated 298 270 - 300 mOsm/kg 10/21/2022 5:47 AM [facility] eGFR by CKD-EPI >90 >=90 mL/min/1. 73 m2 10/21/2022 5:47 AM [facility] Blood BLOOD SPECIMEN / Unknown Venipuncture / Unknown 10/21/2022 4:59 AM CDT 10/21/2022 5:09 AM CDT Good Antunez MD LAB - CHEMISTRY [facility] BLACK[facility] [address] [place] [address], [facility] [phone] * SARAH BLOOD SCREEN W/REFLEX TITER (10/21/2022 4:59 AM CDT) SARAH IgG None Detected None Detected 10/22/2022 10:36 PM CDT [facility] ([facility]) Comment: If suspicion of connective tissue disease is strong and SARAH EIA is negative, consider testing for SARAH by IFA ([id number]). INTERPRETIVE INFORMATION: Anti-Nuclear Antibodies (SARAH), IgG by EZIO Antinuclear Antibodies (SARAH), IgG by EZIO: SARAH specimens are screened using enzyme-linked immunosorbent assay (EZIO) methodology. All EZIO results reported as Detected are further tested by indirect fluorescent assay (IFA) using HEp-2 substrate with an IgG-specific conjugate. The SARAH EZIO screen is designed to detect antibodies against dsDNA, histones, SS-A (Ro), SS-B (La), Goodwin, Goodwin/[employer]PLOSIVE [employer]AL MANAGER, Scl-70, Sariah-1, centromeric proteins, other antigens extracted from the HEp-2 cell nucleus. SARAH EZIO assays have been reported to have lower sensitivities than SARAH IFA for systemic autoimmune rheumatic diseases (SARD). Negative results do not necessarily rule out SARD. Performed By: [facility] [address] [place] [address] Microfilm Mounter: Boo Bond MD, PhD CLIA Number: [id number] Blood BLOOD SPECIMEN / Unknown Venipuncture / Unknown 10/21/2022 4:59 AM CDT 10/21/2022 5:06 AM CDT Good Antunez MD LAB - CHEMISTRY BIBIANA BLACKMAN [facility]) [address] * FACTOR V LEIDEN MUTATION PANEL (10/21/2022 4:59 AM CDT) Pathologist [facility] Factor V Leiden Source Whole Blood 10/26/2022 4:46 PM CDT [facility] ([facility]) Factor V Leiden PCR/FRET Negative 10/26/2022 4:46 PM CDT [facility] [email or web address] ([facility]) Comment: Indication for testing: Assess genetic risk for thrombosis. NEGATIVE: The factor V Leiden variant, c.1601G>A; p.[id number], was not detected. This does not exclude [...] function in the F5 gene variant c.1601G>A (p.[id number]). Legacy nomenclature: [id number] (1691G>A) CLINICAL SENSITIVITY: 20-50 percent of individuals with an isolated VTE have the FVL variant. METHODOLOGY: Polymerase chain reaction and fluorescence monitoring. ANALYTICAL SENSITIVITY AND SPECIFICITY: 99 percent. LIMITATIONS: Diagnostic errors can occur due to rare sequence variations. F5 gene mutations, other than p.[id number], will not be detected. This test was developed and its performance characteristics determined by [facility]. It has not been cleared or approved by the [place] Food and Drug Administration. This test was performed in a CLIA certified laboratory and is intended for clinical purposes. Counseling and informed consent are recommended for genetic testing. Consent forms are available online. Performed By: [facility] [address] [place] [address] Microfilm Mounter: Boo Bond MD, PhD CLIA Number: [id number] Blood BLOOD SPECIMEN / Unknown Venipuncture / Unknown 10/21/2022 4:59 AM CDT 10/21/2022 5:10 AM CDT Good Antunez MD LAB - COAGULATION OR DERABLES Performing Organization Address City/[facility]/ZIP Co de Phone Number [facility] ([facility]) [address] [place] [address], [facility] * COMPLEMENT C3 (10/21/2022 4:59 AM CDT) [facility] Complement C3 155 82 - 193 mg/dL 10/21/2022 5:47 AM CDT [facility] Blood BLOOD SPECIMEN / Unknown Venipuncture / Unknown 10/21/2022 4:59 AM CDT 10/21/2022 5:09 AM CDT Good Antunez MD LAB - CHEMISTRY BIB[place]NA BLACKMAN Performing Organization Address [facility] Co de Phone Number [address] [address], [place] [phone] * RHEUMATOID FACTOR BLOOD QUANTITATIVE (10/21/2022 4:59 AM CDT) [facility] Rheumatoid Factor <15 <30 IU/mL 10/21/2022 5:36 AM CDT [facility] Rheumatoid Factor Screen Negative Negative 10/21/2022 5:36 AM CDT [facility] Blood BLOOD SPECIMEN / Unknown Venipuncture / Unknown 10/21/2022 4:59 AM CDT 10/21/2022 5:06 AM CDT Good Antunez MD LAB - CHEMISTRY [facility]NA BLACKMAN Performing Organization Address City/[facility]/ZIP Co de Phone Number [address] [address], [place] [phone] * TROPONIN-I HIGH SENSITIVE BASELINE + 1HR (10/21/2022 4:59 AM CDT) Troponin I High Sensitive <3 <=14 ng/L 10/21/2022 5:46 AM CDT [facility] Blood BLOOD SPECIMEN / Unknown Venipuncture / Unknown 10/21/2022 4:59 AM CDT 10/21/2022 5:09 AM CDT Jim Walter MD LAB - CHEMISTRY ORD ERABLES [facility] [address] [place] [address], [place] [phone] * (ABNORMAL) GLUCOSE - POINT OF CARE (10/21/2022 4:58 AM CDT) Glucose WB/POC 166(H) 70 - 115 mg/dL 10/21/2022 5:02 AM CDT [facility] Specimen Type Cap Fingerstick 2022 5:02 AM CDT [facility] Blood BLOOD SPECIMEN / Unknown 10/21/2022 4:58 AM CDT 10/21/2022 5:02 AM CDT Emir Vail MD LAB - POINT OF CARE ORDERABLES [facility] [address] [place] [address], [place] [phone] * (ABNORMAL) GLUCOSE - POINT OF CARE (10/21/2022 1:21 AM CDT) Glucose WB/POC 164(H) 70 - 115 mg/dL 10/21/2022 1:25 AM CDT [facility] Specimen Type Cap Fingerstick 2022 1:25 AM CDT [facility] Blood BLOOD SPECIMEN / Unknown 10/21/2022 1:21 AM CDT 10/21/2022 1:25 AM CDT Emir Vail MD LAB - POINT OF CARE ORDERABLES [facility] [address] [place] [address], [facility] [phone] * (ABNORMAL) BLOOD GASES ART + COOX PANEL (10/20/2022 10:46 PM CDT) pH Arterial 7.36 7.35 - 7.45 pH 10/20/2022 10:53 PM [facility] pO2 Arterial 179(H) 80 - 100 mmHg 10/20/2022 10:53 PM [facility] pCO2 Arterial 32(L) 35 - 45 mmHg 10:53 PM [facility] HCO3 Arterial 18.1(L) 20.0 - 30.0 mmol/L 10/20/2022 10:53 PM [facility] BE Arterial -6.5(L) -2.0 - 2.0 mmol/L 10/20/2022 10:53 PM [facility] Oxyhemoglobin Arterial 97.5 % 10/20/2022 10:53 PM [facility] Dexoyhemoglobin (HHB) % <1.0 % 10/20/2022 10:53 PM [facility] Methemoglobin 0.8 0.0 - 2.0 % 10/20/2022 10:53 PM [facility] Carboxyhemoglobin 1.0 0.0 - 2.0 % 2022 10:53 PM [facility] O2 Content Arterial 14.1 Interpret within clinical context ml/dL 10/20/2022 10:53 PM [facility] Hemoglobin by COOX 10.0(L) 12.0 - 15.6 g/dL 10/20/2022 10:53 PM [facility] O2 Saturation Arterial 99 90 - 100 % 10/20/2022 10:53 PM [facility] FI O2 Arterial 40.0 % 10/20/2022 10:53 PM [facility] Blood, arterial ARTERIAL BLOOD SPECIMEN / Unknown Arterial Puncture / Unknown 10/20/2022 10:46 PM CDT 10/20/2022 10:51 PM CDT Narrative [facility] - 10/20/2022 10:53 PM CDT Carboxyhemoglobin Normal Concentration: Non-smokers: 0-2%; Smokers: 0-9%; Toxic: >20% Emir Vail MD LAB - BLOOD GASES OR DERABLES [facility] [address] [place] [address], [facility] [phone] * CT HEAD WO CONTRAST (10/20/2022 9:13 PM CDT) Anatomical Region Laterality Modality Head Computed Tomogra phy 10/20/2022 9:15 PM CDT Impressions 10/20/2022 11:06 PM CDT IMPRESSION: Interval postsurgical changes of decompressive right hemicraniectomy with ICP monitor and subdural drain in place. 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 > Dictated by Bassam Jovel M.D. (nursing resident) I, Gonzalez Velasco MD have personally reviewed and interpreted this examination/study. > Interpreting Provider: Gonzalez Velasco MD on 10/20/2022 11:06 PM Narrative 10/20/2022 11:06 PM CDT DATE/TIME OF EXAM: ??10/20/2022 9:13 PM, LOCATION ??[facility] INDICATION: I63.411: Acute cerebrovascular accident (CVA) due to embolism of right middle cerebral artery (CMS/HCC) ADDITIONAL CLINICAL INFORMATION: Ordering Provider Reason For Exam: ??[facility] COMPARISON: Multiple prior studies, most recently CT head dated 10/20/2022 at 8:19 AM TECHNIQUE: CT of the head was performed without contrast according to standard protocol. FINDINGS: There has been interval postsurgical changes of right hemicraniectomy for management of cerebral edema following right MCA territory infarct. A right-sided subdural drain is in place. There is redemonstration of evolving right middle cerebral artery territory infarct, with associated edema and mass effect with sulcal effacement, effacement of the right lateral ventricle, and sgibc-[id number] midline shift measuring up to 4 mm and stable from prior (series 5, image 36). A catheter is seen terminating within the region of the right parietal lobe, likely representing an ICP monitor. No evidence of acute intracranial hemorrhage. The ventricular morphology is stable from prior, without evidence of obstructive hydrocephalus. The basilar cisterns are patent. The scott-white matter differentiation otherwise appears normal. The orbits appear normal. The paranasal sinuses are clear. The mastoid air cells are clear. No soft tissue abnormality is identified. Procedure Note Gonzalez Velasco MD - 10/20/2022 DATE/TIME OF EXAM: 10/20/2022 9:13 PM, LOCATION [facility] INDICATION: I63.411: Acute cerebrovascular accident (CVA) due to embolism of right middle cerebral artery (CMS/HCC) ADDITIONAL CLINICAL INFORMATION: Ordering Provider Reason For Exam: [facility] COMPARISON: Multiple prior studies, most recently CT head dated 10/20/2022 at 8:19 AM TECHNIQUE: CT of the head was performed without contrast according to standard protocol. FINDINGS: There has been interval postsurgical changes of right hemicraniectomyfor management of cerebral edema following right MCA territory infarct. A right-sided subdural drain is in place. There is redemonstration of evolving right middle cerebral artery territory infarct, with associated edema and mass effect with sulcal effacement, effacement of the right lateral ventricle, and mnphg-dl-jdlj midline shift measuring up to 4 mmand stable from prior (series 5, image 36). A catheter is seen terminating within the region of the right parietal lobe, likely representing an ICP monitor. No evidence of acute intracranial hemorrhage. The ventricular morphologyis stable from prior, without evidence of obstructive hydrocephalus. The basilar cisterns are patent. The scott-white matter differentiation otherwise appears normal. The orbits appear normal. The paranasalsinuses are clear. The mastoid air cells are clear. No soft tissue abnormalityis identified. IMPRESSION: Interval postsurgical changes of decompressive right hemicraniectomywith ICP monitor and subdural drain in place. Evolving right middle cerebral artery territory infarct with ongoing right to left shift ofapproximately 4 mm, unchanged from prior. > Dictated by Bassam Jovel M.D. (nursing resident) Gonzalez Ornelas MD have personally reviewed and interpreted this examination/study. > Interpreting Provider: Gonzalez Velasco MD on 10/20/2022 11:06 PM Emir Vail MD CT ORDERABLES * (ABNORMAL) BLOOD GAS+COOX+LYTES+METAB ARTERIAL POCT (10/20/2022 7:36 PM CDT) pH Arterial 7.36 7.35 - 7.45 pH 10/20/2022 7:36 PM [facility] pO2 Arterial 180(H) 80 - 100 mmHg 10/20/2022 7:36 PM [facility] pCO2 Arterial 36 35 - 45 mmHg 7:36 PM [facility] HCO3 Arterial 20.3 20.0 - 30.0 mmol/L 10/20/2022 7:36 PM [facility] BE Arterial -4.6(L) -2.0 - 2.0 mmol/L 10/20/2022 7:36 PM [facility] Oxyhemoglobin Arterial 97.1 % 10/20/2022 7:36 PM [facility] Dexoyhemoglobin (HHB) % 1.1 % 10/20/2022 7:36 PM [facility] Methemoglobin 0.8 0.0 - 2.0 % 10/20/2022 7:36 PM [facility] Carboxyhemoglobin 1.0 0.0 - 2.0 % 2022 7:36 PM [facility] Comment:Carboxyhemoglobin No rmal Concentration: Non-smokers: 0-2%; Smokers: 0- 9%; Toxic: >20% O2 Content Arterial 13.4 Interpret within clinical context ml/dL 10/20/2022 7:36 PM [facility] Hemoglobin by COOX 9.5(L) 12.0 - 15.6 g/dL 10/20/2022 7:36 PM [facility] O2 Saturation Arterial 99 90 - 100 % 10/20/2022 7:36 PM [facility] Sodium Whole Blood 143 135 - 145 mmol/L 10/20/2022 7:36 PM [facility] Potassium Whole Blood 3.6 3.5 - 5.5 mmol/L 10/20/2022 7:36 PM CDT [facility] Chloride WB 116(H) 78 - 107 mmol/L 10/20/2022 7:36 PM CDT [facility] Calcium Ionized 1.03 mmol/L 7:36 PM CDT [facility] Ionized Calcium pH Adjusted 1.01(L) 1.19 - 1.34 mmol/L 10/20/2022 7:36 PM CDT [facility] Anion Gap (AG) Arterial 10 8 - 18 mmol/L 10/20/2022 7:36 PM CDT [facility] Glucose WB 155(H) 70 - 115 mg/dL 10/20/2022 7:36 PM CDT [facility] Lactic Acid Whole Blood 1.6 <=2.0 mmol/L 10/20/2022 7:36 PM CDT [facility] Blood, arterial ARTERIAL BLOOD SPECIMEN / Unknown 10/20/2022 7:36 PM CDT 10/20/2022 7:36 PM CDT Emir Vail MD LAB - POINT OF CARE ORDERABLES [address] [address], [place] [phone] * BLOOD GAS ART+LYTES+METAB+COOX POC NOTIF (10/20/2022 7:27 PM CDT) Comment Notification Label Only - See Separate Report 10/20/2022 9:00 PM CDT [facility] Other MISCELLANEOUS SAMPLES / Unknown 10/20/2022 7:27 PM CDT 10/20/2022 7:32 PM CDT Lianet Diaz MD LAB - BLOOD GASES OR DERABLES [address] [address], [place] [phone] * HGB HCT PANEL (10/20/2022 4:40 PM CDT) Hemoglobin 12.0 12.0 - 15.6 g/dL 10/20/2022 5:01 PM CDT [facility] Hematocrit 36.6 35.0 - 45.0 % 10/20/2022 5:01 PM CDT [facility] Blood BLOOD SPECIMEN / Unknown Venipuncture / Unknown 10/20/2022 4:40 PM CDT 10/20/2022 4:56 PM CDT Good Antunez MD LAB - HEMATOLOGY ORD ERABLES [facility] [address] [place] [address], [facility] [phone] * ECHO COMPLETE W BUBBLE STUDY (10/20/2022 4:05 PM CDT) BSA 2.8809127 m2 SSM CV FUJ I PACS LV biplane EF 64 54 - 74 % SSM CV FUJI PACS LV A2C EF 66 52 - 76 % SSM CV FUJ I PACS LV A4C EF 66 46 - 78 % SSM CV FUJ I PACS LVOT stroke vol 53.52 cm3 SSM CV FUJI PACS LV stroke vol 2D teich 32.61 ml SSM CV FUJI PACS LV stroke vol index A4C MOD 28.051 ml SSM CV FUJI PACS LVIDd 3.67 3.8 - 5.2 cm SSM CV FUJI PACS LVIDs 2.58 2.2 - 3.5 cm SSM CV FUJI PACS IVSd 2D 0.919 0.6 - 0.9 cm SSM CV FUJI PACS LVPWd 1.19 cm SSM CV FUJ I PACS Fractional Shortening 2D 30 28 - 44 % SSM CV FUJI PACS LV ESV BP 13.266 14 - 42 mL SSM CV FUJI PACS LV ESV index BP 6.3 8 - 24 mL/m2 SSM CV FUJI PACS LV ESV A2C 14.674 10 - 54 mL SSM CV FUJI PACS LV EDV BP 37.07 mL SSM CV FUJ I PACS LV ESV A4C 10.694 12 - 60 mL SSM CV FUJI PACS LV EDV index BP 17.5 29 - 61 mL/m2 SSM CV FUJI PACS LV EDV A2C 31.046 41 - 133 mL SSM CV FUJI PACS LV EDV A4C 42.725 mL SSM CV FU JI PACS LV ESV 2D 24.198 14 - 42 mL SSM CV FUJI PACS LV EDV 2D 56.808 46 - 106 mL SSM CV FUJI PACS LVOT diam 2.1 cm SSM CV FUJ I PACS LVOT area 3.46 cm2 SSM CV [email or web address]] I PACS LV RWT 0.65 SSM CV FUJ I PACS LV Mahmood A2C 6.823 cm SSM CV F UJI PACS LV Mahmood A4C 7.092 cm SSM CV F UJI PACS IVS/LVPW 0.771 SSM CV [facility] [[email or web address]] I PACS LV mass 2D 86.6232 66 - 150 g SSM CV FUJI PACS LV mass index 2D 40.92 44 - 88 g/m2 SSM CV FUJI PACS MV E pk arianna 73.89 cm/s SSM CV F UJI PACS MV avg E/e' ratio 9.22 SS M CV FUJI PACS MV A pk arianna 73.505 cm/s SSM CV F UJI PACS MV E A ratio 1.01 SSM CV FUJI PACS MV E' lateral arianna 7.905 cm/s SS M CV FUJI PACS MV DT 134 ms SSM CV [facility] [[email or web address]] I PACS MV E' septal arianna 8.119 cm/s SSM CV FUJI PACS MV A duration 66 ms SSM CV [facility] [email or web address]]I PACS MV E/e' septal 9.1 SSM C V FUJI PACS MV E/e' lateral 9.347 SSM CV FUJI PACS LVOT pk arianna 0.90 m/s SSM CV F UJI PACS LVOT mn arianna 0.61 m/s SSM CV F UJI PACS LVOT mn grad 1.7 mmHg SSM CV FUJI PACS LVOT Cardiac Output 13.175 l/min SSM CV FUJI PACS Qp:Qs 0.70 SSM CV FUJ I PACS LA ESV A2C MOD Index 15 ml/m2 SSM CV FUJI PACS LA ESV A4C MOD Index 18 ml/m2 SSM CV FUJI PACS LA size 3.162 2.7 - 3.8 cm SSM CV FUJI PACS LA vol BP A-L 38.34 mL SSM CV FUJI PACS RV-mahmood basal diam 2.2 2.5 - 4.1 cm SSM CV FUJI PACS RV-mahmood longitudinal diam 5.4 5.9 - 8.3 cm SSM CV FUJI PACS RVIDd 2.3 cm SSM CV FUJ I PACS RVOT diam Doppler 1.787 cm SS M CV FUJI PACS RVOT area Doppler 2.51 cm2 SS M CV FUJI PACS RVOT stroke vol 37.42 cm3 SSM CV FUJI PACS RVOT VTI 14.926 cm SSM CV FUJ I PACS TV S' arianna 12.03 SSM CV FUJ I PACS TAPSE 2.088 1.7 cm SSM CV FUJ I PACS RVOT pk arianna 0.83 m/s SSM CV F UJI PACS RA area 11.985 cm2 SSM CV FUJ I PACS AV mn grad 5 mmHg SSM CV FU JI PACS AV pk grad 10 mmHg SSM CV FU JI PACS AV mn arianna 1.09 m/s SSM CV FUJ I PACS AV pk arianna 1.58 m/s SSM CV FUJ I PACS AV VTI 24.342 cm SSM CV FUJ I PACS LVOT pk grad 3.226 mmHg SSM CV FUJI PACS LVOT VTI 15.461 cm SSM CV FUJ I PACS AV area planimetry 2.20 cm2 SSM CV FUJI PACS AV area index 1.1 cm2/m2 SSM CV FUJI PACS AV area cont VTI 2.3 cm2 SSM CV FUJI PACS AV area pk arianna 2.1 cm2 SSM C V FUJI PACS AV Doppler arianna index pk arianna 0.57 SSM CV FUJI PACS Dimensionless Index 0.635 SSM CV FUJI PACS MV mn grad 2 mmHg SSM CV FU JI PACS MV pk grad 3 mmHg SSM CV FU JI PACS MV mn arianna 0.62 m/s SSM CV FUJ I PACS MV pk arianna 79.498 cm/s SSM CV FUJ I PACS MV PHT 39 ms SSM CV FUJ I PACS MV area PHT 5.64 cm2 SSM CV F UJI PACS MV area cont eq 3.34 cm2 SSM CV FUJI PACS MV VTI 16.006 cm SSM CV FUJ I PACS MV decel slope 550.922 cm/s2 SSM C V FUJI PACS RVOT mn grad 1 mmHg SSM CV FUJI PACS RVOT pk grad 3 mmHg SSM CV FUJI PACS PV area cont eq 2.2 cm2 SSM CV FUJI PACS PV mn grad 3 mmHg SSM CV FU JI PACS PV pk arianna 107.295 cm/s SSM CV FUJ I PACS PV pk grad 5 mmHg SSM CV FU JI PACS PV VTI 17.168 cm SSM CV FUJ I PACS PV mn arianna 76.135 cm/s SSM CV FUJ I PACS IVC size 0.9 cm SSM CV FUJ I PACS Max Age Predicted HR 181 SSM CV FUJI PACS Target HR 154 SSM CV FUJ I PACS [id number] 6.054 cm SSM CV FUJ I PACS [id number] 5.318 cm SSM CV FUJ I PACS LV stroke vol BP 23.804 ml/m2 SSM CV FUJI PACS LVIDs index 1.22 1.3 - 2.1 cm/m2 SSM CV FUJI PACS LV LVIDd index 1.73 2.3 - 3.1 cm/m2 SSM CV FUJI PACS Anatomical Region Laterality Modality Ultrasound Narrative 10/20/2022 11:22 PM CDT ?Left??Ventricle: Left ventricle size is normal. Normal wall thickness. Normal systolic function with a visually estimated EF of 60 - 65%. Normal wall motion. Normal diastolic function. ?Normal RV size and systolic function. ?No significant valvular abnormalities. ?Bubble study negative for shunt. ?Normal IVC and visualized portion of aorta. Left Ventricle Left ventricle size is normal. Normal wall thickness. Normal systolic function with a visually estimated EF of 60 - 65%. Normal wall motion. Normal diastolic function. Right Ventricle Right ventricle size is normal. Normal systolic function. Left Atrium Left atrium size is normal. Right Atrium Right atrium size is normal. IVC/SVC IVC diameter is less than or equal to 21 mm and decreases greater than 50% during inspiration; therefore the estimated right atrial pressure is normal (~3 mmHg). Mitral Valve Valve structure is normal. No restricted motion. Trace regurgitation. No stenosis. Tricuspid Valve Valve structure is normal. No restricted motion. Trace regurgitation. No stenosis. Aortic Valve Valve structure is trileaflet. No restricted motion. No regurgitation. No stenosis. Pulmonic Valve Valve structure is normal. No restricted motion. No regurgitation. No stenosis. Ascending Aorta Normal sized sinus of Valsalva (aortic root) and ascending aorta. Pericardium No pericardial effusion. Study Details Study quality was adequate. A complete color Doppler, spectral Doppler and M- mode echocardiogram was performed. The apical, parasternal, subcostal and suprasternal views were obtained. Saline ultrasound enhancing agent used. Patient exhibited sinus tachycardia. Technical difficulties due to patient's clinical status, patient's body habitus and patient positioning. Jim Walter MD ECHO CUPID * XR ABDOMEN KUB PORTABLE (10/20/2022 12:43 PM CDT) Anatomical Region Laterality Modality Abdomen Radiographic Irene ging 10/20/2022 1:09 PM CDT Narrative 10/20/2022 3:31 PM CDT PROCEDURE: ??XR ABDOMEN KUB PORTABLE DATE/TIME OF EXAM: ??10/20/2022 12:44 PM Indication: I63.511: Right middle cerebral artery stroke (CMS/HCC) Evaluation of NG tube placement COMPARISON: None. FINDINGS/IMPRESSION: An enteric tube is seen coursing into the stomach with its tip and side-port in the gastric body. Report dictated by Royer Stovall MD (resident services coordinator). I, Amanda Prieto MD have personally reviewed and interpreted this examination/study. > Interpreting Provider: Amanda Prieto MD on 10/20/2022 3:31 PM Procedure Note Amanda Prieto MD - 10/20/2022 PROCEDURE: XR ABDOMEN KUB PORTABLE DATE/TIME OF EXAM: 10/20/2022 12:44 PM Indication: I63.511: Right middle cerebral artery stroke (CMS/HCC) Evaluation of NG tube placement COMPARISON: None. FINDINGS/IMPRESSION: An enteric tube is seen coursing into the stomach with its tip and side-port in the gastric body. Report dictated by Royer Stovall MD (resident services coordinator). I, Amanda Prieto MD have personally reviewed and interpreted this examination/study. > Interpreting Provider: Amanda Prieto MD on 10/20/2022 3:31 PM Good Antunez MD DIAGNOSTIC IMAGING O RDERABLES * (ABNORMAL) GLUCOSE - POINT OF CARE (10/20/2022 11:32 AM CDT) Glucose WB/POC 124(H) 70 - 115 mg/dL 10/20/2022 11:42 AM CDT [facility] Specimen Type Cap Fingerstick 2022 11:42 AM CDT [facility] Blood BLOOD SPECIMEN / Unknown 10/20/2022 11:32 AM CDT 10/20/2022 11:42 AM CDT Good Antunez MD LAB - POINT OF CARE ORDERABLES Performing Organization Address City/State/[facility] Co de Phone Number [facility] [address] [place] [id number], [facility] [phone] * (ABNORMAL) HEMOGLOBIN A1C (10/20/2022 10:15 AM CDT) Hemoglobin A1c 6.0(H) <=5.6 % 10/20/2022 2:15 PM CDT [facility] Estimated Average Glucose 126 mg/dL 10/20/2022 2:15 PM T [facility] Comment: HbA1c Interpretation: Normal : < 5.7% Pre-diabetes: 5.7-6.4% Diabetes: Equal to or greater than 6.5% Test results diagnostic of diabetes should be repeated for confirmation. Treatment target values recommended by ADA and other clinical organizations should be used to evaluate metabolic control in patients. Reference: [place] [employer], Standards of Care in Diabetes [...] Good Antunez MD LAB - CHEMISTRY BIBIANA Santamaria Organization Address City/State/ZIP Co de Phone Number [place] [id number] [place] [address], [facility] [phone] * CT HEAD NON CONTRAST (10/20/2022 8:17 AM CDT) Anatomical Region Laterality Modality Head Computed Tomogra phy 10/20/2022 12:1 7 PM CDT Impressions 10/20/2022 12:27 PM CDT IMPRESSION: Findings consistent with a large acute area of infarction in the right cerebral hemisphere in the distribution of the right middle cerebral artery with mass effect and approximately 4 mm of midline shift right to left. There is no definite hemorrhagic transformation. There is hyperdensity of the right middle cerebral artery likely representing thrombus. Clinical correlation and continued close interval follow-up are recommended. Results discussed with the stroke team physician, Dr. Stephanie Hester, on 20 October 2022 approximately 1225 hours. > Interpreting Provider: Joni Fabian MD on 10/20/2022 12:27 PM Narrative 10/20/2022 12:27 PM CDT PROCEDURE: ??CT HEAD WO CONTRAST DATE/TIME OF EXAM: ??10/20/2022 8:19 AM CLINICAL INFORMATION: None relevant/not provided if blank. Indication: R44.9: Left-sided sensory deficit present Additional History: Follow-up of acute stroke COMPARISON: Noncontrast brain CT 19 October 2022. TECHNIQUE: Noncontrast CT brain was performed utilizing standard protocol. CT dose reduction technique was used, including Automated Exposure Control. FINDINGS: There is no definite acute intracranial hemorrhage. There is a large confluent area of decreased attenuation within the right cerebral hemisphere consistent with a large acute infarct in the distribution of the right middle cerebral artery. Mass effect is produced approximately 4 mm of midline shift right to left. There is some mild effacement of the right side of the suprasellar cistern. There is increased attenuation within the region of the right middle cerebral artery likely representing thrombus. There is some effacement of the right lateral and third ventricles due to the mass effect related to the acute infarct. The left lateral and fourth ventricles are within normal limits in size. No definite areas of abnormal attenuation within the left cerebral hemisphere. Bone window images are negative for depressed skull fracture. When comparison is made to the previous study of 19 October 2022 there has been progression of the acute infarct in the right middle cerebral artery distribution which is larger in size and with new mass effect and midline shift. Procedure Note Joni Fabian MD - 10/20/2022 PROCEDURE: CT HEAD WO CONTRAST DATE/TIME OF EXAM: 10/20/2022 8:19 AM CLINICAL INFORMATION: None relevant/not provided if blank. Indication: R44.9: Left-sided sensory deficit present Additional History: Follow-up of acute stroke COMPARISON: Noncontrast brain CT 19 October 2022. TECHNIQUE: Noncontrast CT brain was performed utilizing standard protocol. CT dose reduction technique was used, including Automated ExposureControl. FINDINGS: There is no definite acute intracranial hemorrhage. There is a large confluent area of decreased attenuation within theright cerebral hemisphere consistent with a large acute infarct in the distribution of the right middle cerebral artery. Mass effect isproduced approximately 4 mm of midline shift right to left. There is some mild effacement of the right side of the suprasellar cistern. There isincreased attenuation within the region of the right middle cerebral artery likely representing thrombus. There is some effacement of the right lateral and third ventricles dueto the mass effect related to the acute infarct. The left lateral andfourth ventricles are within normal limits in size. No definite areas of abnormal attenuation within the left cerebral hemisphere. Bone window images are negative for depressed skull fracture. When comparison is made to the previous study of 19 October 2022 therehas been progression of the acute infarct in the right middle cerebralartery distribution which is larger in size and with new mass effect andmidline shift. IMPRESSION: Findings consistent with a large acute area of infarction in the right cerebral hemisphere in the distribution of the right middle cerebralartery with mass effect and approximately 4 mm of midline shift right to left. There is no definite hemorrhagic transformation. There is hyperdensityof the right middle cerebral artery likely representing thrombus. Clinical correlation and continued close interval follow-up are recommended. Results discussed with the stroke team physician, Dr. Stephanie Hester, on20 October 2022 approximately 1225 hours. > Interpreting Provider: Joni Fabian MD on 10/20/2022 12:27 PM Jim Walter MD CT ORDERABLES * (ABNORMAL) GLUCOSE - POINT OF CARE (10/20/2022 7:47 AM CDT) Glucose WB/POC 118(H) 70 - 115 mg/dL 10/20/2022 7:54 AM CDT [facility] Specimen Type Cap Fingerstick 2022 7:54 AM CDT [facility] Blood BLOOD SPECIMEN / Unknown 10/20/2022 7:47 AM CDT 10/20/2022 7:54 AM CDT Good Antunez MD LAB - POINT OF CARE ORDERABLES [address] [address], [place] [phone] * (ABNORMAL) GLUCOSE - POINT OF CARE (10/20/2022 7:44 AM CDT) Glucose WB/POC 32(LL) 70 - 115 mg/dL 10/20/2022 7:54 AM CDT [facility] Specimen Type Cap Fingerstick 2022 7:54 AM CDT [facility] Blood BLOOD SPECIMEN / Unknown 10/20/2022 7:44 AM CDT 10/20/2022 7:54 AM CDT Good Antunez MD LAB - POINT OF CARE ORDERABLES [address] [address], [place] [phone] * BLOOD TYPE VERIFICATION (10/20/2022 4:00 AM CDT) ABO Rh B POS 10/20/2022 4:3 7 AM CDT [facility] Blood Bank BLOOD SPECIMEN / Unknown Venipuncture / Unknown 10/20/2022 4:00 AM CDT 10/20/2022 4:07 AM CDT Tim Callahan MD LAB - BLOOD BANK ORD ERABLES [facility] [address] [place] [address] [phone] * (ABNORMAL) CBC W/O DIFFERENTIAL (10/20/2022 3:02 AM CDT) WBC 19.5(H) 3.5 - 10.5 10? 3 /uL 10/20/2022 3:30 AM [facility] RBC 3.83 3.80 - 5.20 10? 6 /uL 10/20/2022 3:30 AM [facility] Hemoglobin 11.9(L) 12.0 - 15.6 g/dL 10/20/2022 3:30 AM [facility] Hematocrit 35.4 35.0 - 45.0 % 10/20/2022 3:30 AM [facility] MCV 92.4 80.7 - 98.3 fL 10/20/2022 3:30 AM [facility] MCH 31.1 26.7 - 34.0 pg 10/20/2022 3:30 AM [facility] MCHC 33.6 30.8 - 35.9 g/dL 10/20/2022 3:30 AM [facility] RDW-SD 45.7 36.0 - 50.0 fL 10/20/2022 3:30 AM [facility] RDW-CV 13.5 11.2 - 14.8 % 10/20/2022 3:30 AM [facility] Platelet Count 292 150 - 400 10? 3 /uL 10/20/2022 3:30 AM [facility] MPV 9.9 9.4 - 12.9 fL 10/20/2022 3:30 AM [facility] nRBC Absolute 0.00 0 10? 3 /uL 10/20/2022 3:30 AM [facility] nRBC Auto 0.0 0 /100 WBC 10/20/2022 3:30 AM [facility] Blood BLOOD SPECIMEN / Unknown Venipuncture / Unknown 10/20/2022 3:02 AM CDT 10/20/2022 3:09 AM T Jim Walter MD LAB - HEMATOLOGY OR DERABLES [facility] [address] [place] [address], [facility] [phone] * (ABNORMAL) BASIC METABOLIC PANEL (CALCIUM TOTAL) (10/20/2022 3:02 AM CDT) BUN 6(L) 7 - 26 mg/dL 10/20/2022 3:36 AM [facility] Creatinine 0.50(L) 0.56 - 0.96 mg/dL 10/20/2022 3:36 AM [facility] Sodium 138 136 - 145 mmol/L 10/20/2022 3:36 AM [facility] Potassium 3.6 3.5 - 4.5 mmol/L 10/20/2022 3:36 AM [facility] Chloride 108(H) 98 - 107 mmol/L 10/20/2022 3:36 AM [facility] CO2 21(L) 22 - 29 mmol/L 10/20/2022 3:36 AM [facility] Glucose 140(H) 70 - 115 mg/dL 10/20/2022 3:36 AM [facility] Calcium 8.2(L) 8.4 - 10.2 mg/dL 10/20/2022 3:36 AM [facility] Anion Gap 13 8 - 18 10/20/2022 3:36 AM [facility] BUN/Creatinine Ratio 12 7 - 23 10/20/2022 3:36 AM [facility] Osmolality Calculated 286 270 - 300 mOsm/kg 10/20/2022 3:36 AM [facility] eGFR by CKD-EPI >90 >=90 mL/min/1.7 3 m2 10/20/2022 3:36 AM [facility] Blood BLOOD SPECIMEN / Unknown Venipuncture / Unknown 10/20/2022 3:02 AM CDT 10/20/2022 3:09 AM CDT Jim Walter MD LAB - CHEMISTRY ORD ERABLES [facility] [address] [place] [address], [facility] [phone] * LUPUS ANTICOAGULANT PANEL (10/20/2022 3:02 AM CDT) APTT 24.4 23.0 - 38.4 Seconds 10/20/2022 11:35 AM [facility] PT 13.6 12.1 - 14.8 Seconds 10/20/2022 11:35 AM [facility] INR 1.1 See Comment 10/20/2022 11:35 AM [facility] [employer] Buffer 37.8 Seconds 023 11:35 AM [facility] [employer] Phospholipid 33.2 Seconds 10/20/2022 11:35 AM [facility] [employer] Delta 4.6 <8.0 Seconds 10/20/2022 11:35 AM [facility] Interpretation [place] Negative 10/20/2022 11:35 AM [facility] Comment:Up to 15-20% of douglas ents with [...] Antunez MD LAB - HEMATOLOGY ORD ERABLES [facility] [address] [place] [address], [facility] [phone] * (ABNORMAL) PROTEIN S ACTIVITY (10/20/2022 3:02 AM CDT) Protein S Activity 134(H) 57 - 131 % 10/21/2022 10:09 PM CDT [facility] ([facility]) Comment: INTERPRETIVE INFORMATION: Protein S, Functional Patients [...] reference intervals for this test in the [facility] Test Directory ([facility]). Performed By: [facility] [address] [place] [address] Microfilm Mounter: Boo Bond MD, PhD CLIA Number: [id number] Blood BLOOD SPECIMEN / Unknown Venipuncture / Unknown 10/20/2022 3:02 AM CDT 10/20/2022 3:09 AM CDT Good Antunez MD LAB - COAGULATION OR DERABLES [facility]) [address] [place] [address] * PROTEIN C ACTIVITY (10/20/2022 3:02 AM CDT) Protein C Activity 150 83 - 168 % 10/21/2022 9:44 PM CDT [facility] ([facility]) Comment: INTERPRETIVE INFORMATION: Protein C, Functional Patients [...] reference intervals for this test in the [facility] Test Directory ([facility]). Performed By: [facility] [address] [place] [address] Microfilm Mounter: Boo Bond MD, PhD CLIA Number: [id number] Blood BLOOD SPECIMEN / Unknown Venipuncture / Unknown 10/20/2022 3:02 AM CDT 10/20/2022 3:09 AM CDT Good Antunez MD LAB - COAGULATION OR DERABLES [facility] ([facility]) [address] [place] [address], [facility] * (ABNORMAL) LIPID PROFILE (10/20/2022 3:02 AM CDT) Cholesterol Total 173 <200 mg/dL 10/20/2022 3:34 AM T [facility] HDL 42 >40 mg/dL 10/20/2022 3:34 AM [facility] Comment: ATP III Classification of HDL Cholesterol: ? <40 mg/dL: ??Considered a major risk factor. ? >60 mg/dL: ??Considered a negative risk factor. ? LDL Calculated 91 <100 mg/dL 10/20/2022 3:34 AM [facility] Comment: ATP III Classification of LDL Cholesterol: ?<100 mg/dL: ??Optimal ? 100 - 129 mg/dL: ??Near Optimal/Above Optimal ? 130 - 159 mg/dL: ??Borderline High ? 160 - 189 mg/dL: ??High ?>190 mg/dL: ??Very High ? Triglycerides 201(H) <150 mg/dL 10/20/2022 3:34 AM [facility] Comment: ATP III Classification of Triglycerides: ?<150 mg/dL: ??Normal ? 150 - 199 mg/dL: ??Borderline High ? 200 - 400 mg/dL: ??High ?>500 mg/dL: ??Very High Blood BLOOD SPECIMEN / Unknown Venipuncture / Unknown 10/20/2022 3:02 AM CDT 10/20/2022 3:09 AM CDT Jim Walter MD LAB - CHEMISTRY ORD ERABLES Performing Organization Address City/[facility]/ZIP Co de Phone Number [address] [address], [facility] [phone] * (ABNORMAL) GLUCOSE - POINT OF CARE (10/19/2022 7:50 PM CDT) Glucose WB/POC 140(H) 70 - 115 mg/dL 10/19/2022 7:50 PM CDT [facility] Specimen Type Cap Fingerstick 2022 7:50 PM CDT [facility] Blood BLOOD SPECIMEN / Unknown 10/19/2022 7:50 PM CDT 10/19/2022 7:50 PM CDT Good Antunez MD LAB - POINT OF CARE ORDERABLES Performing Organization Address [facility]/ZIP Co de Phone Number [address] [address], [place] [phone] * URINE DRUG SCREEN IMMUNOASSAY (10/19/2022 2:10 PM CDT) [facility] Amphetamines Screen Urine Negative Negative: < 1000 ng/mL 10/19/2022 2:48 PM CDT [facility] Barbiturates Screen Urine Negative Negative: < 200 ng/mL 10/19/2022 2:48 PM CDT [facility] Benzodiazepine Screen Urine Negative Negative: < 200 ng/mL 10/19/2022 2:48 PM CDT [facility] Opiates Urine Negative Negative: < 300 ng/mL 10/19/2022 2:48 PM CDT [facility] Cocaine Metabolites Urine Negative Negative: < 300 ng/mL 10/19/2022 2:48 PM CDT [facility] Phencyclidine Screen Urine Negative Negative: < 25 ng/ml 10/19/2022 2:48 PM CDT [facility] Cannabinoids Screen Urine Negative Negative: <50 ng/mL 10/19/2022 2:48 PM CDT [facility] Methadone Screen Urine Negative Negative: < 300 ng/mL 10/19/2022 2:48 PM CDT [facility] Fentanyl Screen Urine Negative Negative: <1.5 ng/mL 10/19/2022 2:48 PM CDT [facility] Urine URINE / Unknown Collection / Unknown 10/19/2022 2:10 PM CDT 10/19/2022 2:15 PM CDT Narrative [facility] - 10/19/2022 2:48 PM CDT The Urine Toxicology Screening Panel does not screen for Propoxyphene, Meprobamate, Carisoprodol, Trazodone, [id number] medications and/or volatiles (Acetone, Isopropanol, Methanol or Ethylene Glycol). Ethanol, Salicylate, Acetaminophen, Tricyclic Antidepressants and several therapeutic drugs may be individually assayed in serum or plasma specimen. Toxicology testing by the [facility] is an aid to medical diagnosis and treatment of patients. No documented chain of custody was maintained. Results are intended to be used for clinical purposes only. ? Good Antunez MD LAB - URINE CHEMISTR Y ORDERABLES Performing Organization Address [facility]/State/[facility] Co de Phone Number [facility] [address] [place] [address], [facility] [phone] * HCG URINE QUALITATIVE (10/19/2022 2:10 PM CDT) Test Urine Negative Negative 10/19/2022 2:29 PM CDT [facility] Urine URINE / Unknown Collection / Unknown 10/19/2022 2:10 PM CDT 10/19/2022 2:15 PM CDT Tim Callahan MD LAB - URINALYSIS ORD ERABLES [facility] [address] [place] [address], [facility] [phone] * IR INTRACRANIAL [facility] THROMBECT (10/19/2022 10:41 AM CDT) Anatomical Region [...] 11/07/2022 9:21 AM CDT PROCEDURE: ??IR INTRACRANIAL [facility] THROMBECT DATE/TIME OF EXAM: ??10/19/2022 10:41 AM [...] Time to Reperfusion: 9:54 Final TICI: 2b Pit Slagman: Dr. Mitali Walter Meteorologist In Charge(s): Isak Monte Vessels: Ultrasound Guided Access of Femoral Artery Ultrasound Guided Access of Radial Artery Arterial line placement in the right radial artery Right Common Carotid Artery Angiogram: Cerebral Intracranial Catheterization Mechanical Thrombectomy with Retrievable Stent and Reperfusion Catheter Angiography Through the Existing Catheter Right Femoral Artery Angiogram Anesthesia: General Anesthesia was performed and monitored by an attending Anesthesiologist and their technical services assistant throughout the entirety of the case [...] artery demonstrated a patent vessel. A 5 new zealander sheath was placed in the radial artery [...] Following a series of exchanges, a 8 Russian sheath sheath was placed in the right femoral artery. A Guide and a 6 Russian Penumbra Select Serrano 2 catheter along with a [...] system. Hemostasis was achieved using a 8 Russian Angio-Seal closure device. Hemostasis was immediate at [...] Walter MD - 11/07/2022 PROCEDURE: [facility] DATE/TIME OF EXAM: 10/19/2022 10:41 AM [...] Time to Reperfusion: 9:54 Final TICI: 2b Pit Slagman: Dr. Mitali Walter Meteorologist In Charge(s): Isak Monte Vessels: Ultrasound Guided Access of Femoral Artery Ultrasound Guided Access of Radial Artery Arterial line placement in the right radial artery Right Common Carotid Artery Angiogram: Cerebral Intracranial Catheterization Mechanical Thrombectomy with Retrievable Stent and Reperfusion Catheter Angiography Through the Existing Catheter Right Femoral Artery Angiogram Anesthesia: General Anesthesia was performed and monitored by an attending Anesthesiologist and their technical services assistant throughout the entirety of the case [...] artery demonstrated a patent vessel. A 5 new zealander sheath was placedin the radial artery and was used as an arterial line. Limited ultrasoundof the common femoral artery demonstrated a patent vessel. The take off ofthe profunda and other arteries were identified. A scott scale image was documented. The right common femoral artery was accessed using a micropuncture needle. The needle entry was documented. Following aseries of exchanges, a 8 Russian sheath sheath was placed in the right femoral artery. A Guide and a 6 Russian [employer] Select Serrano 2 catheter along with a [...] arterial system.Hemostasis was achieved using a 8 Russian Angio-Seal closure device. Hemostasis was immediate at [...] AM Emir Vail MD IR ORDERABLES * TYPE + SCREEN PANEL (10/19/2022 8:24 AM CDT) Antibody Screen NEG 9:34 AM CDT [facility] ABO Rh B POS 10/19/2022 9:34 AM CDT [facility] Blood Bank BLOOD SPECIMEN / Unknown Venipuncture / Unknown 10/19/2022 8:24 AM CDT 10/19/2022 8:44 AM CDT Tim Callahan MD LAB - BLOOD BANK ORD ERABLES Performing Organization Address [facility] Co de Phone Number [facility] [address] [place] [phone] [phone] * PT-INR [facility] (10/19/2022 8:24 AM CDT) Pathologist [facility] PT 12.3 12.1 - 14.8 Seconds 10/19/2022 9:04 AM CDT [facility] INR 0.9 See Comment 10/19/2022 9:04 AM CDT [facility] Comment:The suggested therap eutic range for standard coumadin (warfarin) therapy is an INR of 2.0-3.0. For high-risk patients (Mechanical Mitral Valve Prosthesis, etc.), the suggested prophylactic therapeutic range is an INR of 2.5-3.5. Blood BLOOD SPECIMEN / Unknown Venipuncture / Unknown 10/19/2022 8:24 AM CDT 10/19/2022 8:31 AM CDT Tim Callahan MD LAB - COAGULATION OR DERABLES Performing Organization Address [facility]/ZIP Co de Phone Number [address] [phone] [phone] * (ABNORMAL) COMPREHENSIVE METABOLIC PANEL (10/19/2022 8:24 AM [facility]) BUN 13 7 - 26 mg/dL 10/19/2022 8:57 AM [facility] Creatinine 0.84 0.56 - 0.96 mg/dL 10/19/2022 8:57 AM [facility] Sodium 139 136 - 145 mmol/L 10/19/2022 8:57 AM [facility] Potassium 4.2 3.5 - 4.5 mmol/L 10/19/2022 8:57 AM [facility] Chloride 108(H) 98 - 107 mmol/L 10/19/2022 8:57 AM [facility] CO2 21(L) 22 - 29 mmol/L 10/19/2022 8:57 AM [facility] Glucose 109 70 - 115 mg/dL 10/19/2022 8:57 AM [facility] Calcium 8.9 8.4 - 10.2 mg/dL 10/19/2022 8:57 AM [facility] Protein Total 7.7 6.0 - 8.3 g/dL 10/19/2022 8:57 AM [facility] Albumin 3.5 3.4 - 5.0 g/dL 10/19/2022 8:57 AM [facility] Bilirubin Total 0.1(L) 0.2 - 1.2 mg/dL 10/19/2022 8:57 AM [facility] Alkaline Phosphatase 52 40 - 150 U/L 10/19/2022 8:57 AM [facility] ALT 16 5 - 55 U/L 10/19/2022 8:57 AM [facility] AST 19 5 - 34 U/L 10/19/2022 8:57 AM [facility] Anion Gap 14 8 - 18 10/19/2022 8:57 AM [facility] BUN/Creatinine Ratio 15 7 - 23 10/19/2022 8:57 AM [facility] Osmolality Calculated 289 270 - 300 mOsm/kg 10/19/2022 8:57 AM [facility] Albumin/Globulin Ratio 0.8(L) 1.1 - 2.3 10/19/2022 8:57 AM [facility] eGFR by CKD-EPI >90 >=90 mL/min/1.7 3 m2 10/19/2022 8:57 AM [facility] Blood BLOOD SPECIMEN / Unknown Venipuncture / Unknown 10/19/2022 8:24 AM CDT 10/19/2022 8:31 AM CDT Tim Callahan MD LAB - CHEMISTRY ORDE HIRAL [facility] Organization Address City/State/ZIP Co de Phone Number [facility] [address] [place] [address] [phone] * (ABNORMAL) CBC W AUTO DIFFERENTIAL (10/19/2022 8:24 AM CDT) WBC 10.9(H) 3.5 - 10.5 10? 3 /uL 10/19/2022 8:39 AM [facility] RBC 4.73 3.80 - 5.20 10? 6 /uL 10/19/2022 8:39 AM [facility] Hemoglobin 14.4 12.0 - 15.6 g/dL 10/19/2022 8:39 AM [facility] Hematocrit 42.6 35.0 - 45.0 % 10/19/2022 8:39 AM [facility] MCV 90.1 80.7 - 98.3 fL 10/19/2022 8:39 AM [facility] MCH 30.4 26.7 - 34.0 pg 10/19/2022 8:39 AM [facility] MCHC 33.8 30.8 - 35.9 g/dL 10/19/2022 8:39 AM [facility] RDW-SD 43.4 36.0 - 50.0 fL 10/19/2022 8:39 AM [facility] RDW-CV 13.1 11.2 - 14.8 % 10/19/2022 8:39 AM [facility] Platelet Count 342 150 - 400 10? 3 /uL 10/19/2022 8:39 AM [facility] MPV 10.4 9.4 - 12.9 fL 10/19/2022 8:39 AM [facility] nRBC Absolute 0.00 0 10? 3 /uL 10/19/2022 8:39 AM [facility] nRBC Auto 0.0 0 /100 WBC 10/19/2022 8:39 AM [facility] Neutrophils % 67.3 35.0 - 70.0 % 10/19/2022 8:39 AM [facility] Lymphocytes % 23.9 20.0 - 43.0 % 10/19/2022 8:39 AM [facility] Monocytes % 6.4 5.0 - 13.0 % 10/19/2022 8:39 AM [facility] [facility] Eosinophils % 1.4 0.0 - 6.0 % 10/19/2022 8:39 AM [facility] Basophil % 0.6 0.0 - 2.0 % 10/19/2022 8:39 AM [facility] Neutrophils Absolute 7.33(H) 1.60 - 7.00 10? 3 /uL 10/19/2022 8:39 AM [facility] Lymphocyte Absolute 2.61 1.10 - 3.90 10? 3 /uL 10/19/2022 8:39 AM [facility] Monocytes Absolute 0.70 0.26 - 1.07 10? 3 /uL 10/19/2022 8:39 AM [facility] Eosinophils Absolute 0.15 0.00 - 0.47 10? 3 /uL 10/19/2022 8:39 AM [facility] Basophils Absolute 0.07 0.00 - 0.08 10? 3 /uL 10/19/2022 8:39 AM [facility] Immature Granulocytes % 0.4 0.0 - 1.0 % 10/19/2022 8:39 AM [facility] Immature Granulocytes Absolute 0.04 10/19/2022 8:39 AM [facility] Blood BLOOD SPECIMEN / Unknown Venipuncture / Unknown 10/19/2022 8:24 AM T 10/19/2022 8:31 AM CDT Tim Callahan MD LAB - HEMATOLOGY ORD ERABLES Performing Organization Address [facility]/ZIP Co de Phone Number [facility] [address] [place] [address], [facility] [phone] * EKG 12-LEAD (10/19/2022 8:22 AM CDT) Ventricular Rate 129 BPM [facility] Atrial Rate 129 BPM [facility] P-R Interval 134 ms [facility] QRS Duration ms 90 ms [facility] MUSE Q-T Interval ms 318 ms [facility] M[facility] QTC Calculation (Bezet) 465 ms [facility] Calculated P [place] 55 degrees [facility] Calculated R [place] 13 degrees [facility] Calculated T [place] 5 degrees [facility] MUSE Interpretation EKG SINUS TACHYCARDIA OTHERWISE NORMAL ECG NO PREVIOUS ECGS AVAILABLE Confirmed by FLORA OTT MD ([id number]) on 10/19/2022 5:38:23 PM [facility] MUSE 10/19/2022 8:22 AM CDT 10/19/2022 5:38 PM CDT Tim Callahan MD ECG ORDERABLES Performing Organization Address [facility] Co de Phone Number [facility] * CT ANGIO BRAIN NECK STROKE (10/19/2022 [...] DATE/TIME OF EXAM: ??10/19/2022 8:16 AM, LOCATION ??[facility] INDICATION: Code Stroke ADDITIONAL CLINICAL INFORMATION: Ordering [...] ANGIO BRAIN NECK STROKE, DATE/TIME OF EXAM: 38:16 AM, LOCATION [facility] INDICATION: Code Stroke ADDITIONAL CLINICAL INFORMATION: Ordering [...] 0.9 - 1.2 10/19/2022 8:18 AM CDT [facility] Device [id number] 10/19/2022 8:18 AM CDT [facility] [place] [id number] 10/19/2022 8:18 AM CDT [facility] Blood BLOOD SPECIMEN / Unknown 10/19/2022 8:09 AM CDT 10/19/2022 8:18 AM CDT Provider Unknown LAB - POINT OF CARE ORDERABLES Performing Organization Address City/[facility]/ZIP Co de Phone Number [facility] [address] [place] [address], [facility] [phone] * CREATININE - POCT INTERFACED (10/19/2022 8:08 AM CDT) [facility] Creatinine POCT 0.78 0.30 - 1.30 mg/dL 10/19/2022 8:18 AM CDT [facility] eGFR >90 >90 mL/min/1.7 3 m2 10/19/2022 8:18 AM CDT [facility] Blood BLOOD SPECIMEN / Unknown 10/19/2022 8:08 AM CDT 10/19/2022 8:18 AM CDT Provider Unknown LAB - POINT OF CARE ORDERABLES Performing Organization Address City/[facility]/ZIP Co de Phone Number [facility] [address] [place] [address], [facility] [phone] * CT BRAIN - Stroke (10/19/2022 8:03 [...] DATE/TIME OF EXAM: ??10/19/2022 8:04 AM, LOCATION ??[facility] INDICATION: Code Stroke ADDITIONAL CLINICAL INFORMATION: Ordering [...] DATE/TIME OF EXAM: 10/19/2022 8:04 AM, LOCATION [facility] INDICATION: Code Stroke ADDITIONAL CLINICAL INFORMATION: Ordering [...] AM Tim Callahan MD CT ORDERABLES * GLUCOSE - POINT OF CARE (10/19/2022 7:56 AM CDT) Glucose WB/POC 105 70 - 115 mg/dL 10/19/2022 8:01 AM CDT [facility] Specimen Type Cap Fingerstick 2022 8:01 AM CDT [facility] Blood BLOOD SPECIMEN / Unknown 10/19/2022 7:56 AM CDT 10/19/2022 8:01 AM CDT Provider Unknown LAB - POINT OF CARE ORDERABLES Performing Organization Address City/State/[facility] Co de Phone Number [facility] [address] [place] [address], [facility] [phone] documented in this encounter Visit Diagnoses Diagnosis 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 Unspecified cerebral artery occlusion with cerebral infarction Weakness Other malaise and fatigue Gaze palsy Palsy of conjugate gaze Hemianopsia 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 Left-sided sensory deficit present Other general symptoms Dysarthria Right middle cerebral artery stroke (HCC) Unspecified cerebral artery occlusion with cerebral infarction At high risk for bleeding after thrombolytic therapy 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) Nihss score 9 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 Cold extremity without peripheral vascular disease Other symptoms involving skin and integumentary tissues Acute lower limb ischemia Leukocytosis, unspecified type Received intravenous tissue plasminogen activator (tPA) in emergency department Hypoxia Hypoxemia Ischemia Unspecified circulatory system disorder Primary hypertension Unspecified essential hypertension Iliac artery occlusion, 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) Fever, unspecified fever cause Drug eruption Dermatitis due to drugs and medicines taken internally Hepatocellular injury Unspecified chronic liver disease without mention of alcohol Transaminitis Nonspecific elevation of levels of transaminase or lactic acid dehydrogenase (LDH) 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 Urinary retention Retention of urine, unspecified Hemianopsia 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 Weakness Other malaise and fatigue Left-sided sensory deficit present Other general symptoms Gaze palsy Palsy of conjugate gaze 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) Nihss score 9 Received intravenous tissue plasminogen activator (tPA) in emergency department Migraine Hypertension Unspecified essential hypertension GERD (gastroesophageal reflux disease) Esophageal reflux 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) Anemia Anemia, unspecified Hepatocellular injury Unspecified chronic liver disease without mention of alcohol Iliac artery occlusion, 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 Right AC preferred site. Current Rate 10/20/2022 6:27 AM CDT 75 mL/hr $ New Bag/Syringe 10/19/2022 1:30 PM CDT 75 mL/ hr Rate Change 10/19/2022 12:50 PM CDT 75 mL/hr 0.9% NaCl injection 10 mL 10 mL, Intracatheter, ONCE, 1 dose, On Sun10/19/22 at 0845, Flush line before tenecteplase administration. $ Given 10/19/2022 8:31 AM CDT 10 mL 0.9% NaCl injection 10 mL 10 mL, Intracatheter, ONCE, 1 dose, On Sun10/19/22 at 0845, Flush line after tenecteplae administration $ Given 10/19/2022 8:33 AM CDT 10 mL 0.9% NaCl injection 10-40 mL 10-40 mL, Intracatheter, EVERY 8 HOURS, First dose on Sun11/07/22 at 1630, Until Discontinued, Flush each lumen of mid-line with 10ml NS IVP every 8 hours (regardless of continuous IV infusion). Flushing may be contraindicated if concentrated drips are infusing. $ Given 11/15/2022 9:33 PM CDT 10 mL $ Given 11/15/2022 1:50 PM CDT 10 mL $ Given 11/14/2022 8:26 PM CDT 10 mL 0.9% NaCl injection 10-40 mL 10-40 mL, Intravenous, PRN, Other, mid-line flush, Starting on Sun11/07/22 at 1545, Until Sun11/17/22 at 1626, Flush each lumen of mid-line with 10ml NS IVP before and after medication/solution administration, before and after blood product administration, when obtaining blood sample, discard 5-10ml blood, then obtain sample. Upon completion, pulse flush with 20ml sterile NS IVP and PRN to determine patency. 0.9% NaCl injection 10-40 mL 10-40 mL, Intracatheter, EVERY 8 HOURS, First dose on Sun11/16/22 at 1400, Until Discontinued, Flush each lumen of mid-line with 10ml NS IVP every 8 hours (regardless of continuous IV infusion). Flushing may be contraindicated if concentrated drips are infusing. 0.9% NaCl injection 10-40 mL 10-40 mL, Intravenous, PRN, Other, mid-line flush, Starting on Sun11/16/22 at 1042, Until Sun11/17/22 at 1626, Flush each lumen of mid-line with 10ml NS IVP before and after medication/solution administration, before and after blood product administration, when obtaining blood sample, discard 5-10ml blood, then obtain sample. Upon completion, pulse flush with 20ml sterile NS IVP and PRN to determine patency. 0.9% NaCl injection 3 mL 3 mL, Intracatheter, EVERY 8 HOURS, First dose on Sun10/19/22 at 0830, Until Discontinued, Flush peripheral IV catheter with 3 mL of normal saline every 8 hours. $ Given 2022 10:34 PM CDT 3 mL $ Given 2022 6:04 AM CDT 3 mL $ Given 10/31/2022 8:19 PM CDT 3 mL 0.9% NaCl injection 3 mL 3 mL, Intracatheter, EVERY 8 HOURS, First dose on [place] 10/19/22 at 0900, Until Discontinued $ Given 11/17/2022 5:34 AM CDT 3 mL $ Given 11/16/2022 9:46 PM CDT 3 mL $ Given 11/16/2022 3:13 PM CDT 3 mL 0.9% NaCl injection 3 mL 3 mL, Intracatheter, PRN, Other, peripheral line flush, Starting on Sun10/19/22 at 0820, Until Sun11/17/22 at 1626, Flush after each use and blood draws. $ Given 11/16/2022 5:57 AM CDT 3 mL $ Given 11/12/2022 9:44 PM CDT 3 mL $ Given 11/09/2022 6:36 AM CDT 3 mL 0.9% NaCl IV bolus 1,000 mL, at 1,935.48 mL/hr, Administer over 31 Minutes, ONCE, 1 dose, On [place] 10/19/22 at 1200 $ New Bag/Syringe 10/19/2022 11:44 AM CDT 1,000 mL 1935.48 mL/hr 0.9% NaCl IV bolus 500 mL, at 491.8 mL/hr, Administer over 61 Minutes, ONCE, 1 dose, On [facility] 11/04/22 at 1445 $ New Bag/Syringe 11/04/2022 6:16 PM CDT 500 mL 491.8 mL/hr 0.9% NaCl IV bolus 500 mL, at 1,875 mL/hr, Administer over 16 Minutes, ONCE, 1 dose, On Sun11/05/22 at 1545 $ New Bag/Syringe 11/05/2022 5:33 PM CDT 500 mL 1875 mL/hr 0.9% NaCl IV bolus 500 mL, at 967.74 mL/hr, Administer over 31 Minutes, ONCE, 1 dose, On Sun11/07/22 at 2045 $ New Bag/Syringe 11/07/2022 9:05 PM CDT 500 mL 967.74 mL/hr 0.9% NaCl IV bolus 1,000 mL, at 983.61 mL/hr, Administer over 61 Minutes, ONCE, 1 dose, On Sun11/08/22 at 1115 $ New Bag/Syringe 11/08/2022 1:28 PM CDT 1,000 mL 983.61 mL/hr 0.9% NaCl IV bolus 1,000 mL, at 983.61 mL/hr, Administer over 61 Minutes, ONCE, 1 dose, On Sun11/14/22 at 1800 $ New Bag/Syringe 11/14/2022 6:01 PM CDT 1,000 mL 983.61 mL/hr 0.9% NaCl IV bolus 500 mL, at 491.8 mL/hr, Administer over 61 Minutes, ONCE, 1 dose, On Sun11/15/22 at 0830 $ New Bag/Syringe 11/15/2022 10:01 AM CDT 500 mL 491.8 mL/hr acetaminophen (Ofirmev) injection 1,000 mg 1,000 mg, at 400 mL/hr, Intravenous, ONCE, 1 dose, On Sun10/19/22 at 1730, See Micromedex for renal dosing guidelines. Patient preference for lesser PRN pain meds may be honored when the patient requests a less strong medication, a lower dose, or a less intrusive route of administration when the lesser drug, dose and route have been ordered for the patient. This patient request must be documented in the MAR. $ New Bag/Syringe 10/19/2022 5:25 PM CDT 1,000 mg 400 mL/hr acetaminophen (Ofirmev) injection 1,000 mg 1,000 mg, at 400 mL/hr, Intravenous, ONCE, 1 dose, On Sun10/20/22 at 0415, See Micromedex for renal dosing guidelines. Patient preference for lesser PRN pain meds may be honored when the patient requests a less strong medication, a lower dose, or a less intrusive route of administration when the lesser drug, dose and route have been ordered for the patient. This patient request must be documented in the MAR. $ New Bag/Syringe 10/20/2022 4:11 AM CDT 1,000 mg 400 mL/hr acetaminophen (Ofirmev) injection 1,000 mg 1,000 mg, at 400 mL/hr, Intravenous, ONCE, 1 dose, On Sun10/20/22 at 1215, See ScraperWikiedex for renal dosing guidelines. Patient preference for lesser PRN pain meds may be honored when the patient requests a less strong medication, a lower dose, or a less intrusive route of administration when the lesser drug, dose and route have been ordered for the patient. This patient request must be documented in the MAR., Does your patient have an order for nothing by mouth or per tube (including meds) and a contraindication to rectal administration? Yes, Does your patient have a contraindication to NSAIDs (ie CrCl < 60 ml/min, increased risk of bleed, hypersensitivity to ASA or NSAIDs)? No, Is your patient either post-op colorectal, cardio-thoracic, or a case lasting > 5 hours? No $ New Bag/Syringe 10/20/2022 12:22 PM CDT 1,000 mg 400 mL/hr acetaminophen (Tylenol) tablet 500 mg 500 mg, Enteral Tube, EVERY 4 HOURS PRN, Headache, Starting on Sun10/25/22 at 2152, Until 11/05/22 at 1146, Patient preference for lesser PRN pain meds may be honored when the patient requests a less strong medication, a lower dose, or a less intrusive route of administration when the lesser drug, dose and route have been ordered for the patient. This patient request must be documented in the MAR. $ Given 11/05/2022 10:57 AM CDT 500 mg G Tube $ Given 11/05/2022 12:31 AM CDT 500 mg G Tube $ Given 11/04/2022 8:39 AM CDT 500 mg G Tube acetaminophen (Tylenol) tablet 500 mg 500 mg, Enteral Tube, EVERY 6 HOURS, First dose (after last modification) on Sun11/13/22 at 1800, Until Discontinued, Patient preference for lesser PRN pain meds may be honored when the patient requests a less strong medication, a lower dose, or a less intrusive route of administration when the lesser drug, dose and route have been ordered for the patient. This patient request must be documented in the MAR. $ Given 11/14/2022 5:02 AM CDT 500 mg G Tube $ Given 11/13/2022 11:32 PM CDT 500 mg G Tube $ Given 11/13/2022 5:34 PM CDT 500 mg G Tube acetaminophen (Tylenol) tablet 500 mg 500 mg, Enteral Tube, EVERY 6 HOURS PRN, Fever, Mild Pain, Moderate Pain, Starting on Sun11/14/22 at 1100, Until Sun11/17/22 at 1626, Patient preference for lesser PRN pain meds may be honored when the patient requests a less strong medication, a lower dose, or a less intrusive route of administration when the lesser drug, dose and route have been ordered for the patient. This patient request must be documented in the MAR. $ Given 11/17/2022 5:34 AM CDT 500 mg G Tube $ Given 11/16/2022 4:09 PM CDT 500 mg G Tube $ Given 11/15/2022 1:52 PM CDT 500 mg G Tube acetaminophen (Tylenol) tablet 650 mg 650 mg, Enteral Tube, EVERY 6 HOURS, First dose (after last modification) on Sun11/05/22 at 1700, Until Discontinued, Patient preference for lesser PRN pain meds may be honored when the patient requests a less strong medication, a lower dose, or a less intrusive route of administration when the lesser drug, dose and route have been ordered for the patient. This patient request must be documented in the MAR. $ Given 11/13/2022 12:19 PM CDT 650 mg G Tube $ Given 11/13/2022 5:27 AM CDT 650 mg G Tube $ Given 11/12/2022 11:20 PM CDT 650 mg G Tube artificial tears ophthalmic ointment Each Eye, EVERY 8 HOURS, First dose on Sun10/20/22 at 2245, Until Discontinued $ Given 10/26/2022 6:24 AM CDT $ Given 10/25/2022 8:46 PM CDT $ Given 10/25/2022 2:44 PM CDT aspirin chew tablet 81 mg 81 mg, Enteral Tube, DAILY, First dose on Sun10/22/22 at 1400, Until Discontinued $ Given 10/25/2022 8:34 AM CDT 81 mg NG Tu be $ Given 10/24/2022 8:03 AM CDT 81 mg NG Tube $ Given 10/23/2022 9:06 AM CDT 81 mg NG Tube atorvastatin (Lipitor) tablet 80 mg 80 mg, Enteral Tube, AT BEDTIME, First dose on Sun10/23/22 at 2100, Until Discontinued $ Given 11/11/2022 8:09 PM CDT 80 mg G Tub e $ Given 11/11/2022 12:57 AM CDT 80 mg G Tube $ Given 11/09/2022 8:44 PM CDT 80 mg G Tube bisacodyl (Dulcolax) suppository 10 mg 10 mg, Rectal, DAILY PRN, Constipation, Starting on Sun11/05/22 at 0730, Until Sun11/17/22 at 1626, Third line for constipation $ Given 11/05/2022 10:57 AM CDT 10 mg cefepime (Maxipime) 2,000 mg in 0.9% NaCl IV 50 mL IVPB 2,000 mg (2 g), at 100 mL/hr, Intravenous, EVERY 8 HOURS, First dose on Sun11/05/22 at 1600, Until Discontinued, Indication for anti-infective therapy: Suspected infection, Site of anti-infective therapy: Blood $ New Bag/Syringe 11/11/2022 11:57 PM CDT 2,000 mg 100 mL/hr $ New Bag/Syringe 11/11/2022 4:18 PM CDT 2,000 mg 100 mL /hr $ New Bag/Syringe 11/11/2022 8:09 AM CDT 2,000 mg 100 mL /hr cefTRIAXone (Rocephin) 2,000 mg in 0.9% NaCl IV 50 mL IVPB 2,000 mg (2 g), at 100 mL/hr, Intravenous, EVERY 24 HOURS, First dose on Sun10/25/22 at 0200, Until Discontinued, Ceftriaxone can cause precipitation when administered with calcium-containing fluids, including LR. Flush lines with a compatible fluid, such as D5W or NS before and after ceftriaxone dose. Admin through separate lumens is acceptable. , Indication for anti-infective therapy: Suspected infection, Site of anti-infective therapy: Blood $ New Bag/Syringe 10/25/2022 2:07 AM CDT 2,000 mg 100 mL/hr cefTRIAXone (Rocephin) 2,000 mg in 0.9% NaCl IV 50 mL IVPB 2,000 mg (2 g), at 100 mL/hr, Intravenous, EVERY 12 HOURS, 57 doses, First dose (after last modification) on Sun10/25/22 at 1415, Last dose on Sun11/22/22 at 1415, Ceftriaxone can cause precipitation when administered with calcium-containing fluids, including LR. Flush lines with a compatible fluid, such as D5W or NS before and after ceftriaxone dose. Admin through separate lumens is acceptable. , Indication for anti-infective therapy: Suspected infection, Site of anti-infective therapy: Blood $ New Bag/Syringe 11/05/2022 3:06 AM CDT 2,000 mg 100 mL/hr $ New Bag/Syringe 11/04/2022 2:25 PM CDT 2,000 mg 100 mL /hr $ New Bag/Syringe 11/04/2022 3:38 AM CDT 2,000 mg 100 mL /hr chlorhexidine (Peridex) 0.12 % oral solution 15 mL 15 mL, Mouth/Throat, 2 TIMES DAILY, First dose on Sun10/20/22 at 2245, Until Discontinued, Swab oral mucosa for 30 seconds. Do not brush teeth immediately after use. . WASTE DISPOSAL INSTRUCTIONS: Black Bin Disposal required. $ Given 10/26/2022 8:24 AM CDT 15 mL $ Given 10/25/2022 8:45 PM CDT 15 mL $ Given 10/25/2022 8:33 AM CDT 15 mL dexmedeTOMIDine (Precedex) 400 mcg in 100 mL NS infusion premix 0-1.5 mcg/kg/hr ? 95.3 kg (0-35.7375 mL/hr, rounded to 0-35.74 mL/hr), Intravenous, CONTINUOUS, Starting on 10/21/22 at 0930, Until Tu10/24/22 at 0916, Above RASS goal: Assess and treat pain first if CPOT greater than 2. If agitation persists Increase rate per order. At RASS goal and no change in 4 hours: Decrease rate per order. Below RASS goal (unarousable): Hold infusion until at goal RASS then restart at 50% previous rate. If significant hemodynamic changes notify physician for instructions. Notify physician for inability to reach goals despite maximal dosage. Note: The CPOT goal should be achieved first with the use of the ordered analgesic medication prior to targeting RASS goal with the sedative. Hold medication and call physician if HR less than 40 bpm, Titration Parameters: Standard Parameters, Indication: Sedation, Initiate infusion at: 0.2 mcg/kg/hr, Titrate infusion by: 0.1 mcg/kg/hr, Titrate every: 30 minutes, Notify physician if: Unachievable RASS goal despite max dose, Titration Priority: 1st $ New Bag/Syringe 10/23/2022 1:03 PM CDT 0.2 mcg/kg/hr 4.77 mL/hr Rate Change 10/23/2022 12:19 PM CDT 0.4 mcg/kg/hr 9.53 mL/ hr Rate Change 10/23/2022 9:27 AM CDT 0.6 mcg/kg/hr 14.3 mL/h r dextrose 5 % and 0.9% NaCl infusion at 100 mL/hr, Intravenous, CONTINUOUS, Starting on Sun11/10/22 at 1330, Until 11/11/22 at 0131 $ New Bag/Syringe 11/10/2022 1:53 PM CDT 100 mL/hr dextrose 5 % and 0.9% NaCl infusion at 75 mL/hr, Intravenous, CONTINUOUS, Starting on 11/11/22 at 0145, Until 11/11/22 at 0744 $ New Bag/Syringe 11/11/2022 1:53 AM CDT 75 mL/hr dextrose 5 % and lactated ringers infusion at 75 mL/hr, Intravenous, CONTINUOUS, Starting on Sun10/29/22 at 0700, Until Sun10/31/22 at 1554, Please start once NPO order goes into effect at 0000 on 10/30/22 Current Rate 10/30/2022 8:38 PM CDT 75 mL /hr Restarted 10/30/2022 8:37 PM CDT 75 mL/hr Current Rate 10/30/2022 10:27 AM CDT 75 mL/hr diphenhydrAMINE (Benadryl) capsule 25 mg 25 mg, Enteral Tube, ONCE, 1 dose, On Sun11/07/22 at 2045 $ Given 11/07/2022 9:08 PM CDT 25 mg G Tube diphenhydrAMINE (Benadryl) injection 25 mg 25 mg, Intravenous, ONCE, 1 dose, On Sun10/27/22 at 2030, Administer IV at a rate not exceeding 25 mg/min. Can dilute in 5-10 mL NS as needed for patient comfort. $ Given 10/27/2022 8:34 PM CDT 25 mg diphenhydrAMINE (Benadryl) injection 25 mg 25 mg, Intravenous, ONCE, 1 dose, On 11/04/22 at 1500, Administer IV at a rate not exceeding 25 mg/min. Can dilute in 5-10 mL NS as needed for patient comfort. $ Given 11/04/2022 3:40 PM CDT 25 mg diphenhydrAMINE (Benadryl) injection 25 mg 25 mg, Intravenous, ONCE, 1 dose, On 11/05/22 at 1545, Administer IV at a rate not exceeding 25 mg/min. Can dilute in 5-10 mL NS as needed for patient comfort. $ Given 11/05/2022 3:52 PM CDT 25 mg diphenhydrAMINE-zinc acetate (Benadryl Extra Strength) 2-0.1 % cream Topical, PRN, Itching, Starting on [place] 10/26/22 at 1020, Until 11/11/22 at 1551, Apply to affected areas $ Given 11/09/2022 9:05 AM CDT $ Given 11/08/2022 4:45 PM CDT $ Given 11/03/2022 9:16 AM CDT diphenhydrAMINE-zinc acetate (Benadryl Extra Strength) 2-0.1 % cream Topical, PRN, Itching, Starting on 11/11/22 at 1513, Until 11/15/22 at 1253, Apply to affected areas of rash $ Given 11/12/2022 10:48 AM CDT $ Given 11/11/2022 4:19 PM CDT doxycycline monohydrate capsule 100 mg 100 mg, Enteral Tube, EVERY 12 HOURS, First dose on 11/05/22 at 2100, Until Discontinued, Administer at least 2 hours before or 4 hours after antacids, sucralfate, metals (eg, iron, zinc), multivitamin preparations, tube feeds Administer with 8 oz of water to prevent localized caustic injury. Flush thoroughly with water if administered by enteral tube., Indication for anti-infective therapy: Suspected infection, Site of anti-infective therapy: Blood, Urine/Genitourinary, Upper Respiratory, Lower Respiratory, FINE HAIRER $ Given 11/17/2022 9:10 AM CDT 100 mg G Tub e $ Given 11/16/2022 9:47 PM CDT 100 mg G Tube $ Given 11/16/2022 10:04 AM CDT 100 mg G Tube enoxaparin (Lovenox) injection 100 mg 100 mg (rounded from 95.3 mg = 1 mg/kg ? 95.3 kg), Subcutaneous, EVERY 12 HOURS, First dose on Sun11/08/22 at 1000, Until Discontinued, (for prefilled syringes) do not expel air bubble from the syringe prior to the injection Remind Patient to not rub injection site. Could cause hematoma. $ Given 11/10/2022 9:31 AM CDT 100 mg Abd Left Lower Quadr ant $ Given 11/09/2022 8:43 PM CDT 100 mg Ab d Left Lower Quadrant $ Given 11/09/2022 9:03 AM CDT 100 mg Ab d Left Lower Quadrant enoxaparin (Lovenox) injection 100 mg 100 mg (rounded from 95.3 mg = 1 mg/kg ? 95.3 kg), Subcutaneous, EVERY 12 HOURS, 2 doses, First dose on Sun11/07/22 at 1300, Last dose on Sun11/08/22 at 0100, (for prefilled syringes) do not expel air bubble from the syringe prior to the injection Remind Patient to not rub injection site. Could cause hematoma. $ Given 11/07/2022 11:24 PM CDT 100 mg Abdominal Tissue $ Given 11/07/2022 12:58 PM CDT 100 mg A bd Left Lower Quadrant enoxaparin (Lovenox) injection 100 mg 100 mg (rounded from 95.3 mg = 1 mg/kg ? 95.3 kg), Subcutaneous, EVERY 12 HOURS, 3 doses, First dose on Sun11/12/22 at 2100, Last dose on Sun11/13/22 at 2100, (for prefilled syringes) do not expel air bubble from the syringe prior to the injection Remind Patient to not rub injection site. Could cause hematoma. $ Given 11/13/2022 9:15 PM CDT 100 mg Abd Left Lower Quadr ant $ Given 11/13/2022 8:28 AM CDT 100 mg Ab dominal Tissue $ Given 11/12/2022 9:43 PM CDT 100 mg Ab dominal Tissue enoxaparin (Lovenox) injection 100 mg 100 mg (rounded from 95.3 mg = 1 mg/kg ? 95.3 kg), Subcutaneous, EVERY 12 HOURS, First dose on [place] 11/16/22 at 0830, Until Discontinued, (for prefilled syringes) do not expel air bubble from the syringe prior to the injection Remind Patient to not rub injection site. Could cause hematoma. $ Given 11/17/2022 9:09 AM CDT 100 mg Abd Left Lower Quadr ant $ Given 11/16/2022 9:46 PM CDT 100 mg Ab dominal Tissue $ Given 11/16/2022 10:04 AM CDT 100 mg A bd Left Lower Quadrant enoxaparin (Lovenox) injection 40 mg 40 mg, Subcutaneous, DAILY, First dose on Sun10/20/22 at 1015, Until Discontinued, (for prefilled syringes) do not expel air bubble from the syringe prior to the injection Remind Patient to not rub injection site. Could cause hematoma. $ Given 10/20/2022 12:22 PM CDT 40 mg Abd Left Upper Quadr ant enoxaparin (Lovenox) injection 40 mg 40 mg, Subcutaneous, DAILY, First dose on Sun10/22/22 at 0800, Until Discontinued, (for prefilled syringes) do not expel air bubble from the syringe prior to the injection Remind Patient to not rub injection site. Could cause hematoma. $ Given 10/25/2022 8:33 AM CDT 40 mg Abdominal Tissue $ Given 10/24/2022 8:03 AM CDT 40 mg Ab d Right Upper Quadrant $ Given 10/23/2022 9:06 AM CDT 40 mg Ab d Right Upper Quadrant fentaNYL (PF) (Sublimaze) injection 25 mcg 25 mcg, Intravenous, ONCE, 1 dose, On Sun10/20/22 at 2230, Patient preference for lesser PRN pain meds may be honored when the patient requests a less strong medication, a lower dose, or a less intrusive route of administration when the lesser drug, dose and route have been ordered for the patient. This patient request must be documented in the MAR. $ Given 10/20/2022 10:21 PM CDT 25 mcg fentaNYL (PF) (Sublimaze) injection 50 mcg 50 mcg, Intravenous, EVERY 10 MIN PRN, Moderate Pain, 4 doses, Starting on Sun11/10/22 at 2057, Until 11/12/22 at 0803, Maximum total of 4 doses. If patient reaches max total dose, please [...] documented in the MAR., PACU $ Given 11/10/2022 9:36 PM CDT 50 mcg fentaNYL (Sublimaze) bolus from infusion bag 50 mcg 50 mcg, Intravenous, BOLUS FROM BAG PRN, CPOT goal, Starting on Sun10/20/22 at 2310, Until 10/21/22 at 0846, Bolus from bag every 5 minutes to reach CPOT goal. Can give bolus before anticipated painful stimuli. Contact physician if unable to achieve CPOT goal after administering 4 boluses. If a sedative is ordered, titrate/administer opioid first to achieve CPOT goal, followed by titration/administration of sedative to achieve RASS goal. Bolus From Bag 10/21/2022 4:15 AM CDT 50 mcg Bolus From Bag 10/21/2022 12:11 AM CDT 50 mcg fentaNYL 2500 mcg/50mL (Sublimaze) infusion 0-200 mcg/hr (0-4 mL/hr), Intravenous, CONTINUOUS, Starting on Sun10/20/22 at 2345, Until 10/21/22 at 0845, Above CPOT goal: bolus every 5 minutes until goal CPOT then increase rate per order. Can give bolus before anticipated painful stimuli. Contact physician if unable to achieve CPOT goal after administering 4 boluses. At CPOT goal and no change in 4 hours: Decrease rate per order If significant hemodynamic changes, notify physician for instructions. Notify physician for inability to reach goals despite maximal dosage. If a sedative is ordered, titrate/administer opioid first to achieve CPOT goal, followed by titration/administration of sedative to achieve RASS goal., Titration Parameters: Analgesia, Indication: Analgesia, Initiate infusion at: 25 mcg/hr, Titrate infusion by: 25 mcg/hr, Titrate every: 5 minutes, Notify physician if: Unachievable CPOT goal despite max dose Rate Change 10/20/2022 11:59 PM CDT 75 mcg/hr 1.5 mL/hr Rate Change 10/20/2022 11:42 PM CDT 50 mcg/hr 1 mL/hr $ New Bag/Syringe 10/20/2022 11:34 PM CDT 25 mcg/hr 0.5 m L/hr gadobutrol (Gadavist) injection Intravenous, CONTRAST ONCE, Starting on Sun10/24/22 at 1026, Until Sun10/26/22 at 1025 $ Given - Contrast 10/24/2022 10:26 AM CDT 9.5 mL gadobutrol (Gadavist) injection Intravenous, CONTRAST ONCE, Starting on Sun11/09/22 at 2350, Until 11/11/22 at 2349 $ Given - Contrast 11/09/2022 11:50 PM CDT 9 mL glycopyrrolate (Robinul) injection 0.2 mg 0.2 mg, Intravenous, ONCE, 1 dose, On Sun10/24/22 at 1445 $ Given 10/24/2022 2:32 PM CDT 0.2 mg guaiFENesin (Robitussin) solution 10 mL 10 mL, Enteral Tube, EVERY 12 HOURS, First dose on Sun10/23/22 at 0915, Until Discontinued $ Given 11/17/2022 9:10 AM CDT 10 mL G Tube $ Given 11/16/2022 9:47 PM CDT 10 mL G Tube $ Given 11/16/2022 12:07 PM CDT 10 mL G Tube heparin 100 units/mL in dextrose 5 % infusion 500-2,150 Units/hr (5-21.5 mL/hr), Intravenous, CONTINUOUS, Starting on Sun10/25/22 at 1600, Until Sun10/30/22 at 2359, Initial rate 1200 units/hr APTT(sec) RATE CHANGE less than 40: increase by 100 units/hr, 40-59.9: increase by 100 units/hr, 60-80: NO CHANGE (therapeutic range), 80.1-90: decrease by 150 units/hr, greater than 90: Hold heparin for 1 hour and reduce rate by 200 units/hr Draw aPTT 4 hours after infusion is initiated. Repeat aPTT 4 hours after any rate change or 4 hours after heparin is restarted. Notify physician if 2 consecutive aPTT's are greater than 80 Notify physician if aPTT is greater than 80 Notify physician if patient requires greater than 2000 units/hr If heparin is interrupted for any reason other than described in the table, notify the physician. $ New Bag/Syringe 10/30/2022 10:51 PM CDT 1,650 Units/hr 16.5 mL/hr $ New Bag/Syringe 10/30/2022 8:06 AM CDT 1,650 Units/hr 16 .5 mL/hr $ New Bag/Syringe 10/29/2022 3:39 PM CDT 1,650 Units/hr 16 .5 mL/hr heparin 100 units/mL in dextrose 5 % infusion 850-2,150 Units/hr (8.5-21.5 mL/hr), Intravenous, CONTINUOUS, Starting on Sun10/31/22 at 1015, Until Sun10/31/22 at 1056, Initial rate 1450 units/hr APTT(sec) RATE CHANGE less than 59: increase by 350 units/hr, 59-68.9: increase by 200 units/hr, 69-110: NO CHANGE (therapeutic range), 110.1-121: decrease by 100 units/hr, 121.1-141: decrease by 200 units/hr, greater than 141: Hold heparin for 1 hour and reduce rate by 300 units/hr Draw aPTT 6 hours after infusion is initiated. Repeat aPTT 6 hours after any rate change or 6 hours after heparin is restarted. After two consecutive aPTTs drawn 6 hours apart are therapeutic, order aPTT to be drawn the following a.m. and daily and adjust per nomogram. Notify physician if 2 consecutive aPTT's are greater than 140 If heparin is interrupted for any reason other than described in the table, notify the physician. If heparin is to be restarted after an interruption of more than 4 hours, give 4000 units IV bolus and resume infusion at same rate as before the interruption. Current Rate 10/31/2022 10:41 AM CDT 1,450 Units/hr 14.5 mL/hr $ New Bag/Syringe 10/31/2022 10:41 AM CDT 1,450 Units/hr 1 4.5 mL/hr heparin 100 units/mL in dextrose 5 % infusion 500-2,150 Units/hr (5-21.5 mL/hr), Intravenous, CONTINUOUS, Starting on Sun10/31/22 at 1130, Until Sun11/03/22 at 2124, Initial rate 1450 units/hr APTT(sec) RATE CHANGE less than 40: increase by 100 units/hr, 40-59.9: increase by 100 units/hr, 60-80: NO CHANGE (therapeutic range), 80.1-90: decrease by 150 units/hr, greater than 90: Hold heparin for 1 hour and reduce rate by 200 units/hr Draw aPTT 4 hours after infusion is initiated. Repeat aPTT 4 hours after any rate change or 4 hours after heparin is restarted. Notify physician if 2 consecutive aPTT's are greater than 80 Notify physician if aPTT is greater than 80 Notify physician if patient requires greater than 2000 units/hr If heparin is interrupted for any reason other than described in the table, notify the physician. Rate Change 11/03/2022 6:03 PM CDT 1,550 Units/hr 15.5 mL/hr Rate Change 11/03/2022 11:47 AM CDT 1,450 Units/hr 14.5 mL /hr Rate Change 11/03/2022 6:42 AM CDT 1,600 Units/hr 16 mL/hr heparin 100 units/mL in dextrose 5 % infusion 500-2,150 Units/hr (5-21.5 mL/hr), Intravenous, CONTINUOUS, Starting on Sun11/03/22 at 2130, Until Sun11/07/22 at 1233, Initial rate 1450 units/hr APTT(sec) RATE CHANGE less than 40: increase by 100 units/hr, 40-59.9: increase by 100 units/hr, 60-80: NO CHANGE (therapeutic range), 80.1-90: decrease by 150 units/hr, greater than 90: Hold heparin for 1 hour and reduce rate by 200 units/hr Draw aPTT 4 hours after infusion is initiated. Repeat aPTT 4 hours after any rate change or 4 hours after heparin is restarted. Notify physician if 2 consecutive aPTT's are greater than 80 Notify physician if aPTT is greater than 80 Notify physician if patient requires greater than 2000 units/hr If heparin is interrupted for any reason other than described in the table, notify the physician. $ New Bag/Syringe 11/06/2022 10:56 AM CDT 1,050 Units/hr 10.5 mL/hr $ New Bag/Syringe 11/06/2022 3:42 AM CDT 1,250 Units/hr 12 .5 mL/hr Rate Change 11/05/2022 5:36 PM CDT 1,450 Units/hr 14.5 mL/ hr heparin 100 units/mL in dextrose 5 % infusion 850-2,150 Units/hr (8.5-21.5 mL/hr), Intravenous, CONTINUOUS, Starting on 11/11/22 at 0100, Until 11/12/22 at 1044, Initial rate 1450 units/hr APTT(sec) RATE CHANGE less than 59: bolus + increase by 350 units/hr, 59-68.9: bolus + increase by 200 units/hr, 69-110: NO CHANGE (therapeutic range), 110.1-121: decrease by 100 units/hr, 121.1-141: decrease by 200 units/hr, greater than 141: Hold heparin for 1 hour and reduce rate by 300 units/hr Draw aPTT 6 hours after infusion is initiated. Repeat aPTT 6 hours after any rate change or 6 hours after heparin is restarted. After two consecutive aPTTs drawn 6 hours apart are therapeutic, order aPTT to be drawn the following a.m. and daily and adjust per nomogram. Notify physician if 2 consecutive aPTT's are greater than 140 If heparin is interrupted for any reason other than described in the table, notify the physician. If heparin is to be restarted after an interruption of more than 4 hours, give 4000 units IV bolus and resume infusion at same rate as before the interruption. $ New Bag/Syringe 11/11/2022 6:00 PM CDT 1,050 Units/hr 10.5 mL/hr $ New Bag/Syringe 11/11/2022 10:48 AM CDT 1,250 Units/hr 1 2.5 mL/hr $ New Bag/Syringe 11/11/2022 1:09 AM CDT 1,450 Units/hr 14 .5 mL/hr heparinized saline 2 units/mL infusion Other, CONTINUOUS PRN, Starting on [place] 10/19/22 at 0929, Until [place] 10/19/22 at 0929, Intra-op $ New Bag/Syringe 10/19/2022 9:29 AM CDT 5,500 mL hydrocortisone (Hytone) 2.5 % ointment Topical, 3 TIMES DAILY PRN, rash and itching, Starting on Sun10/27/22 at 2013, Until 10/28/22 at 0927, Apply to itchy rash $ Given 10/27/2022 8:34 PM CDT Abdominal Tissue hydrocortisone (Hytone) 2.5 % ointment Topical, 4 TIMES DAILY, First dose (after last modification) on 10/28/22 at 1300, Until Discontinued, Apply to itchy rash $ Given 2022 8:49 AM CDT $ Given 10/31/2022 8:18 PM CDT $ Given 10/31/2022 4:53 PM CDT Ab d Left Lower Quadrant iopamidol (Isovue 300) 61 % contrast ONCE PRN, Starting on Sun10/19/22 at 0935, Until Sun10/19/22 at 0935, Intra-op $ Given 10/19/2022 9:35 AM CDT 60 mL iopamidol (Isovue 370) 76 % contrast Intravenous, CONTRAST ONCE, Starting on Sun10/19/22 at 0805, Until 10/21/22 at 0804 $ Given - Contrast 10/19/2022 8:06 AM CDT 100 mL iopamidol (Isovue 370) 76 % contrast Intravenous, CONTRAST ONCE, Starting on Sun10/23/22 at 1443, Until Sun10/25/22 at 1442 $ Given - Contrast 10/23/2022 2:45 PM CDT 86 mL iopamidol (Isovue 370) 76 % contrast Intravenous, CONTRAST ONCE, Starting on Sun10/25/22 at 1220, Until Sun10/27/22 at 1219 $ Given - Contrast 10/25/2022 12:39 PM CDT 100 mL iopamidol (Isovue 370) 76 % contrast Intravenous, CONTRAST ONCE, Starting on Sun10/31/22 at 1005, Until Sun11/02/22 at 1004 $ Given - Contrast 10/31/2022 10:09 AM CDT 100 mL iopamidol (Isovue 370) 76 % contrast Intravenous, CONTRAST ONCE, Starting on Sun11/07/22 at 1712, Until [place] 11/09/22 at 1711 $ Given - Contrast 11/07/2022 5:14 PM CDT 100 mL iopamidol (Isovue 370) 76 % contrast Intravenous, CONTRAST ONCE, Starting on [place] 11/09/22 at 1636, Until 11/11/22 at 1635 $ Given - Contrast 11/09/2022 4:37 PM CDT 100 mL iopamidol (Isovue 370) 76 % contrast Intravenous, CONTRAST ONCE, Starting on [place] 11/16/22 at 1624, Until Sun11/17/22 at 1626 $ Given - Contrast 11/16/2022 4:24 PM CDT 100 mL isolyte-S pH 7.4 bolus 500 mL, at 967.74 mL/hr, Administer over 31 Minutes, ONCE, 1 dose, On Sun10/22/22 at 0930 $ New Bag/Syringe 10/22/2022 9:43 AM CDT 500 mL 967.74 mL/hr ketorolac (Toradol) injection 15 mg 15 mg, Intravenous, ONCE, 1 dose, On Sun11/04/22 at 1445 $ Given 11/04/2022 3:39 PM CDT 15 mg ketorolac (Toradol) injection 15 mg 15 mg, Intravenous, Once, 1 dose, On Sun11/05/22 at 1530 $ Given 11/05/2022 3:52 PM CDT 15 mg ketorolac (Toradol) injection 15 mg 15 mg, Intravenous, ONCE, 1 dose, On Sun11/07/22 at 2045 $ Given 11/07/2022 9:08 PM CDT 15 mg labetalol (Normodyne; Trandate) injection 10 mg 10 mg, Intravenous, EVERY 15 MIN PRN, Hypertension, see nursing instructions, Starting on [place] 10/19/22 at 0901, Until Sun10/20/22 at 1259, IVP over 1-2 minutes until target blood pressure goal is reached. If BP out of goal range after 2 doses may use alternative agent or contact physician. Cumulative dose not to exceed 300 mg/24 hrs. Exclusion criteria for Labetolol: Asthma, Cardiac Failure, Heart Block, Heart rate less than 60, or Severe Cardiac Abnormalites. $ Given 10/19/2022 2:33 PM CDT 10 mg $ Given 10/19/2022 2:14 PM CDT 10 mg $ Given 10/19/2022 10:17 AM CDT 5 mg lansoprazole (Prevacid) suspension 30 mg 30 mg, Enteral Tube, DAILY BEFORE BREAKFAST, First dose on Sun10/20/22 at 1045, Until Discontinued, Refrigerate. Shake well before using. $ Given 11/10/2022 5:02 AM CDT 30 mg G Tube $ Given 11/09/2022 6:32 AM CDT 30 mg G Tube $ Given 11/08/2022 7:00 AM CDT 30 mg G Tube lansoprazole (Prevacid) suspension 30 mg 30 mg, Enteral Tube, DAILY BEFORE BREAKFAST, First dose on Sun11/13/22 at 0700, Until Discontinued, Refrigerate. Shake well before using. $ Given 11/13/2022 5:39 AM CDT 30 mg G Tube lansoprazole (Prevacid) suspension 30 mg 30 mg, Enteral Tube, DAILY BEFORE BREAKFAST, First dose (after last reorder) on Sun11/15/22 at 0700, Until Discontinued, Refrigerate. Shake well before using. $ Given 11/17/2022 5:34 AM CDT 30 mg G Tu be $ Given 11/16/2022 5:56 AM CDT 30 mg G Tube $ Given 11/15/2022 5:44 AM CDT 30 mg G Tube lidocaine (Xylocaine MPF) 2% injection ADS Med 1 dose, Starting on Sun10/19/22 at 1257, Until Sun10/19/22 at 1300, Created by cabinet override $ Given 10/19/2022 1:00 PM CDT 2 mL lidocaine (Xylocaine) 1 % injection Subcutaneous, ONCE PRN, Starting on Sun10/19/22 at 0853, Until Sun10/19/22 at 0853, Intra-op $ Given 10/19/2022 8:53 AM CDT 10 mL Right Groin lidocaine (Xylocaine) 1 % injection Subcutaneous, ONCE PRN, Starting on Sun10/19/22 at 0909, Until Sun10/19/22 at 0909, Intra-op $ Given 10/19/2022 9:09 AM CDT 3 mL Right Wrist lidocaine (Xylocaine) 1 % injection Subcutaneous, ONCE, 1 dose, On Sun11/15/22 at 1215 $ Given 11/15/2022 11:58 AM CDT 1.5 mL See Comments loratadine (Claritin) tablet 10 mg 10 mg, Enteral Tube, DAILY, First dose (after last modification) on [facility] 10/21/22 at 0900, Until Discontinued $ Given 11/17/2022 9:10 AM CDT 10 mg G Tube $ Given 11/16/2022 10:04 AM CDT 10 mg G Tube $ Given 11/15/2022 9:20 AM CDT 10 mg G Tube magnesium sulfate 1 g in 100 mL bolus 1 g, at 100 mL/hr, Administer over 60 Minutes, Intravenous, ONCE, 1 dose, On [facility] 10/26/22 at 0730, Infuse at 1 gm/hr $ New Bag/Syringe 10/26/2022 7:25 AM CDT 1 g 100 mL/hr magnesium sulfate 1 g in 100 mL bolus 1 g, at 100 mL/hr, Administer over 60 Minutes, Intravenous, ONCE, 1 dose, On [facility] 10/31/22 at 0215, Infuse at 1 gm/hr $ New Bag/Syringe 10/31/2022 2:28 AM CDT 1 g 100 mL/hr magnesium sulfate 1 g in 100 mL bolus 1 g, at 100 mL/hr, Administer over 60 Minutes, Intravenous, ONCE, 1 dose, On [place] 11/05/22 at 1545, Infuse at 1 gm/hr Give faster than 30 minutes $ New Bag/Syringe 11/05/2022 4:17 PM CDT 1 g 100 mL/hr magnesium sulfate 2 g in 50 mL bolus 2 g, at 25 mL/hr, Administer over 120 Minutes, Intravenous, ONCE, 1 dose, On [facility] 11/04/22 at 1445, Infuse at 1 gm/hr $ New Bag/Syringe 11/04/2022 3:54 PM CDT 2 g 25 mL/hr magnesium sulfate 2 g in 50 mL bolus 2 g, at 25 mL/hr, Administer over 120 Minutes, Intravenous, ONCE, 1 dose, On Sun11/07/22 at 2045, Infuse at 1 gm/hr $ New Bag/Syringe 11/07/2022 9:08 PM CDT 2 g 25 mL/hr magnesium sulfate 2 g in 50 mL bolus 2 g, at 25 mL/hr, Administer over 120 Minutes, Intravenous, ONCE, 1 dose, On Sun11/12/22 at 0800, Infuse at 1 gm/hr $ New Bag/Syringe 11/12/2022 8:26 AM CDT 2 g 25 mL/hr meropenem (Merrem) 2,000 mg in 0.9% NaCl IV 140 mL IVPB 2,000 mg, at 280 mL/hr, Intravenous, EVERY 8 HOURS, First dose on Sun11/12/22 at 0830, Until Discontinued, Indication for restricted (Tier 2) anti-infective therapy (empiric or definitive treatment): Worsening/not improving on Zosyn or Cefepime $ New Bag/Syringe 11/17/2022 1:27 PM CDT 2,000 mg 280 mL/hr $ New Bag/Syringe 11/17/2022 4:08 AM CDT 2,000 mg 280 mL /hr $ New Bag/Syringe 11/16/2022 9:46 PM CDT 2,000 mg 280 mL /hr metoclopramide (Reglan) tablet 10 mg 10 mg, Enteral Tube, ONCE, 1 dose, On Sun11/07/22 at 2045 $ Given 11/07/2022 9:08 PM CDT 10 mg G Tube metoprolol tartrate IR (Lopressor) tablet 25 mg 25 mg, Enteral Tube, 2 TIMES DAILY, First dose (after last modification) on Sun10/20/22 at 1200, Until Discontinued $ Given 10/22/2022 8:00 PM CDT 25 mg NG Tu be $ Given 10/22/2022 9:38 AM CDT 25 mg NG Tube $ Given 10/21/2022 8:29 PM CDT 25 mg NG Tube metoprolol tartrate IR (Lopressor) tablet 25 mg 25 mg, Enteral Tube, EVERY 12 HOURS, First dose (after last modification) on Sun10/23/22 at 0900, Until Discontinued, Please hold for SBP < 90 mmHg $ Given 11/17/2022 9:10 AM CDT 25 mg G Tub e $ Given 11/16/2022 9:48 PM CDT 25 mg G Tube $ Given 11/16/2022 10:03 AM CDT 25 mg G Tube metroNIDAZOLE (Flagyl) 500 mg in 100 mL IVPB 500 mg, at 200 mL/hr, Intravenous, EVERY 8 HOURS, First dose on Sun11/10/22 at 1300, Until Discontinued, Controlled Room Temperature, Indication for anti-infective therapy: Documented infection, Site of anti-infective therapy: Intra-abdominal $ New Bag/Syringe 11/12/2022 5:06 AM CDT 500 mg 200 mL/hr $ New Bag/Syringe 11/11/2022 8:13 PM CDT 500 mg 200 mL /hr $ New Bag/Syringe 11/11/2022 1:08 PM CDT 500 mg 200 mL /hr metroNIDAZOLE (Flagyl) tablet 500 mg 500 mg, Oral, EVERY 8 HOURS, First dose on Sun11/05/22 at 1615, Until Discontinued, May take with food or milk., Indication for anti-infective therapy: Suspected infection, Site of anti-infective therapy: Blood, Lower Respiratory, FINE HAIRER, Upper Respiratory $ Given 11/05/2022 3:52 PM CDT 500 mg niCARdipine (Cardene) 20 mg in 0.9% NaCl 200 mL infusion 0-15 mg/hr (0-150 mL/hr), Intravenous, CONTINUOUS, Starting on [place] 10/19/22 at 1530, Until Sun10/20/22 at 1145, Maintain sbp less than 140 and map greater than 70. Change the infusion site every 12 hours if a peripheral vein is used, Titration Parameters: Standard Parameters, Indication: Stroke-Hypertension, Initiate infusion at: 5 mg/hr, Titrate infusion by: 2.5 mg/hr, Titrate every: 5 minutes, To maintain a: SBP less than 140 mmHg, Notify physician if: SBP greater than 140 mmHg despite max dose Rate Change 10/20/2022 10:36 AM CDT 5 mg/hr 50 mL/hr $ New Bag/Syringe 10/20/2022 7:47 AM CDT 7.5 mg/hr 75 mL/ hr $ New Bag/Syringe 10/20/2022 5:02 AM CDT 7.5 mg/hr 75 mL/ hr nitroGLYCERIN 200 mcg/ml in dextrose 5 % 300 mcg, verapamil (Isoptin) 2,500 mcg 2.5 mL ONCE PRN, Starting on Sun10/19/22 at 0924, Until Sun10/19/22 at 0924, Intra-op $ Given 10/19/2022 9:24 AM CDT norepinephrine (Levophed) 8 mg/250 ml D5 infusion premix 0-0.6 mcg/kg/min ? 95.3 kg (0-107.2125 mL/hr, rounded to 0-107.21 mL/hr), Intravenous, CONTINUOUS, Starting on 10/21/22 at 0000, Until Sun10/22/22 at 0900, Central line required if infused longer than 48 hours or infusing multiple vasopressors, Titration Parameters: Standard Parameters, Indication: Hypotension, Initiate infusion at: 0.05 mcg/kg/min, Titrate infusion by: If current rate 0.01 to 0.1 mcg/kg/min, titrate by 0.01 mcg/kg/min. If current rate 0.11 to 0.3 mcg/kg/min, titrate by 0.02 mcg/kg/min. If current rate 0.31 mcg/kg/min to the max ordered dose, titrate by 0.05 mcg/kg/min., Titrate every: 1 minute, To maintain a: MAP greater than or equal to 65 mmHg, Notify physician if: MAP less than 65 mmHg despite max dose $ New Bag/Syringe 10/21/2022 8:48 AM CDT 0.05 mcg/kg/min 8.93 mL/hr $ New Bag/Syringe 10/21/2022 8:36 AM CDT 0.06 mcg/kg/min 1 0.72 mL/hr Rate Change 10/21/2022 7:38 AM CDT 0.07 mcg/kg/min 12.51 m L/hr oxyCODONE (immediate release) (Roxicodone) tablet 5 mg 5 mg, Enteral Tube, EVERY 6 HOURS PRN, Moderate Pain, Mild Pain, Starting on Sun10/31/22 at 1437, Until Sun11/01/22 at 1036, Patient preference for lesser PRN pain meds may be honored when the patient requests a less strong medication, a lower dose, or a less intrusive route of administration when the lesser drug, dose and route have been ordered for the patient. This patient request must be documented in the MAR. $ Given 2022 1:31 AM CDT 5 mg NG Tu be $ Given 10/31/2022 2:46 PM CDT 5 mg NG Tube oxyCODONE (immediate release) (Roxicodone) tablet 5 mg 5 mg, Enteral Tube, EVERY 6 HOURS PRN, CPOT >2, Starting on Sun11/01/22 at 1035, Until Sun11/17/22 at 1626, Patient preference for lesser PRN pain meds may be honored when the patient requests a less strong medication, a lower dose, or a less intrusive route of administration when the lesser drug, dose and route have been ordered for the patient. This patient request must be documented in the MAR. $ Given 11/16/2022 5:41 PM CDT 5 mg G Tube $ Given 11/16/2022 10:03 AM CDT 5 mg G Tube $ Given 11/16/2022 3:44 AM CDT 5 mg G Tube oxymetazoline (Afrin) 0.05 % nasal spray 2 spray 2 spray, Each Nostril, 2 TIMES DAILY PRN, Nasal Congestion, Prior to NT suction if it hasnt already been admistered in the past 12 hrs, 14 doses, Starting on Sun10/24/22 at 1702, Until Sun10/27/22 at 1701, . WASTE DISPOSAL INSTRUCTIONS: Black Bin Disposal required. $ Given 10/25/2022 9:49 AM CDT 2 sprays pantoprazole (Protonix) injection 40 mg 40 mg, Intravenous, DAILY, 2 doses, First dose on 11/11/22 at 0900, Last dose on 11/12/22 at 0900, For every 40 mg of pantoprazole mix with 10 mL Normal Saline (final concentration = 4 mg/mL). Inject SLOWLY over 2 min. $ Given 11/12/2022 9:57 AM CDT 40 mg $ Given 11/11/2022 9:45 AM CDT 40 mg pantoprazole EC (Protonix) tablet 40 mg 40 mg, Oral, DAILY, First dose on Sun11/13/22 at 1930, Until Discontinued, Do not crush, chew, or cut in half. $ Given 11/14/2022 8:08 AM CDT 40 mg $ Given 11/13/2022 8:02 PM CDT 40 mg perflutren lipid microsphere (Definity) injection 0.5 mL 0.5 mL, Intravenous, INTRA-PROCEDURE MULTIPLE, 6 doses, Starting on Sun11/06/22 at 1308, Until Sun11/17/22 at 1626, For Echo Procedure - Per Protocol Give slowly Shake well before using. $ Given 11/06/2022 1:48 PM CDT 0.5 mL phenylephrine HCl (Jonathon-Synephrine) 20 mg in 0.9% NaCl IV 250 mL infusion 0-1.8 mcg/kg/min ? 95.3 kg (0-128.655 mL/hr, rounded to 0-128.66 mL/hr), Intravenous, CONTINUOUS, Starting on Sun10/21/22 at 0000, Until Sun10/20/22 at 2320, Central line required if infused longer than 48 hours or infusing multiple vasopressors CENTRAL LINE REQUIRED, Titration Parameters: Standard Parameters, Indication: Hypotension, Initiate infusion at: 0.2 mcg/kg/min, Titrate infusion by: If current rate 0-0.6 mcg/kg/min, titrate by 0.1 mcg/kg/min. If current rate 0.61-1.8 mcg/kg/min, titrate by 0.2 mcg/kg/min., Titrate every: 1 minute, To maintain a: MAP greater than or equal to 65 mmHg, Notify physician if: MAP less than 65 mmHg despite max dose $ New Bag/Syringe 10/20/2022 11:18 PM CDT 1.2 mcg/kg/min 85.77 mL/hr polyethylene glycol 3350 (Miralax) packet 17 g 17 g, Enteral Tube, DAILY, First dose on Sun10/20/22 at 1730, Until Discontinued, Mix in 8 ounces of water, juice, soda, coffee or tea prior to administration $ Given 11/08/2022 9:38 AM CDT 17 g G Tube $ Given 11/07/2022 10:00 AM CDT 17 g G Tube $ Given 11/05/2022 10:58 AM CDT 17 g G Tube polyethylene glycol 3350 (Miralax) packet 17 g 17 g, Enteral Tube, 2 TIMES DAILY, First dose (after last modification) on Sun11/08/22 at 2100, Until Discontinued, Mix in 8 ounces of water, juice, soda, coffee or tea prior to administration $ Given 11/13/2022 8:28 AM CDT 17 g G Tube $ Given 11/12/2022 9:43 PM CDT 17 g G Tube $ Given 11/12/2022 9:57 AM CDT 17 g G Tube polyethylene glycol 3350 (Miralax) packet 17 g 17 g, Enteral Tube, DAILY PRN, Constipation, Starting on Sun11/14/22 at 1100, Until Sun11/17/22 at 1626, First line for constipation Mix in 8 ounces of water, juice, soda, coffee or tea prior to administration potassium - sodium phosphates (Phos-Nak) powder 2 packet 2 packet, Enteral Tube, 3 TIMES DAILY WITH MEALS, First dose (after last modification) on Sun10/21/22 at 0800, Until Discontinued, Mix contents of packet in 6 to 8 ounces of water and drink, may taste better if cold Contains Phos 8 mmol, K+ 7 mEq, Na 7 mEq per packet $ Given 10/22/2022 6:07 PM CDT 2 packets NG Tube $ Given 10/22/2022 12:32 PM CDT 2 packets N G Tube $ Given 10/22/2022 9:38 AM CDT 2 packets NG Tube potassium chloride (Klor-Con) packet 20 mEq 20 mEq, Enteral Tube, ONCE, 1 dose, On Sun10/23/22 at 1000, DISSOLVE IN 120 ML OF COLD WATER OR JUICE AND DRINK SLOWLY $ Given 10/23/2022 11:22 AM CDT 20 mEq NG Tube potassium chloride (Klor-Con) packet 20 mEq 20 mEq, Oral, ONCE, 1 dose, On Sun11/08/22 at 0800, DISSOLVE IN 120 ML OF COLD WATER OR JUICE AND DRINK SLOWLY $ Given 11/08/2022 9:38 AM CDT 20 mEq potassium chloride (Klor-Con) packet 20 mEq 20 mEq, Enteral Tube, ONCE, 1 dose, On Sun11/08/22 at 0815, DISSOLVE IN 120 ML OF COLD WATER OR JUICE AND DRINK SLOWLY $ Given 11/08/2022 9:29 AM CDT 20 mEq G Tube potassium chloride (Klor-Con) packet 20 mEq 20 mEq, Enteral Tube, ONCE, 1 dose, On Sun11/10/22 at 0745, DISSOLVE IN 120 ML OF COLD WATER OR JUICE AND DRINK SLOWLY $ Given 11/10/2022 9:31 AM CDT 20 mEq G Tube potassium chloride (Klor-Con) packet 40 mEq 40 mEq, Enteral Tube, ONCE, 1 dose, On Sun10/23/22 at 0715, DISSOLVE IN 120 ML OF COLD WATER OR JUICE AND DRINK SLOWLY $ Given 10/23/2022 9:05 AM CDT 40 mEq NG Tube potassium chloride (Klor-Con) packet 40 mEq 40 mEq, Enteral Tube, ONCE, 1 dose, On [place] 10/26/22 at 0145, DISSOLVE IN 120 ML OF COLD WATER OR JUICE AND DRINK SLOWLY $ Given 10/26/2022 2:24 AM CDT 40 mEq NG Tube potassium chloride (Klor-Con) packet 40 mEq 40 mEq, Enteral Tube, ONCE, 1 dose, On [place] 10/26/22 at 0745, DISSOLVE IN 120 ML OF COLD WATER OR JUICE AND DRINK SLOWLY $ Given 10/26/2022 8:25 AM CDT 40 mEq NG Tube potassium chloride (Klor-Con) packet 40 mEq 40 mEq, Enteral Tube, ONCE, 1 dose, On 10/28/22 at 0845, DISSOLVE IN 120 ML OF COLD WATER OR JUICE AND DRINK SLOWLY $ Given 10/28/2022 8:31 AM CDT 40 mEq NG Tube potassium chloride (Klor-Con) packet 40 mEq 40 mEq, Enteral Tube, ONCE, 1 dose, On Sun11/01/22 at 0315, DISSOLVE IN 120 ML OF COLD WATER OR JUICE AND DRINK SLOWLY $ Given 2022 6:03 AM CDT 40 mEq NG Tube potassium chloride (Klor-Con) packet 40 mEq 40 mEq, Enteral Tube, ONCE, 1 dose, On Sun11/12/22 at 1400, DISSOLVE IN 120 ML OF COLD WATER OR JUICE AND DRINK SLOWLY $ Given 11/12/2022 1:53 PM CDT 40 mEq G Tube potassium chloride 40 mEq in 270 mL bolus 40 mEq, at 67.5 mL/hr, Administer over 4 Hours, Intravenous, ONCE, 1 dose, On Sun11/06/22 at 0900 $ New Bag/Syringe 11/06/2022 10:43 AM CDT 40 mEq 67.5 mL/hr potassium chloride 40 mEq in 270 mL bolus 40 mEq, at 67.5 mL/hr, Administer over 4 Hours, Intravenous, ONCE, 1 dose, On Sun11/07/22 at 1000 $ New Bag/Syringe 11/07/2022 1:03 PM CDT 40 mEq 67.5 mL/hr potassium chloride 40 mEq in 270 mL bolus 40 mEq, at 67.5 mL/hr, Administer over 4 Hours, Intravenous, ONCE, 1 dose, On Sun11/12/22 at 0800 $ New Bag/Syringe 11/12/2022 8:14 AM CDT 40 mEq 67.5 mL/hr prochlorperazine (Compazine) injection 10 mg 10 mg, Intravenous, ONCE, 1 dose, On 11/04/22 at 1500, Max intravenous rate = 5 mg/min $ Given 11/04/2022 3:39 PM CDT 10 mg prochlorperazine (Compazine) injection 10 mg 10 mg, Intravenous, ONCE, 1 dose, On 11/05/22 at 1545, Max intravenous rate = 5 mg/min $ Given 11/05/2022 3:52 PM CDT 10 mg propofol (Diprivan) 1000 mg in 100 mL infusion ADS Med 1 dose, Starting on Sun10/23/22 at 0917, Until Sun10/23/22 at 2129, Created by cabinet override Vial and Tubing should be changed and/or discarded every 12 hours. propofol (Diprivan) infusion 0-50 mcg/kg/min ? 95.3 kg (0-28.59 mL/hr), Intravenous, CONTINUOUS, Starting on Sun10/20/22 at 2245, Until 10/21/22 at 0845, Above RASS goal: Assess and treat pain first if CPOT greater than 2. If agitation persists increase rate per order. At RASS goal and no change in 4 hours: Decrease rate per order. Below RASS goal (unarousable): Hold infusion until at goal RASS then restart at 50% previous rate. If significant hemodynamic changes notify physician for instructions. Notify physician for inability to reach goals despite maximal dosage. Note: The CPOT goal should be achieved first with the use of the ordered analgesic medication prior to targeting RASS goal with the sedative. Vial and Tubing should be changed and/or discarded every 12 hours., Titration Parameters: Standard Parameters, Indication: Sedation, Initiate infusion at: 5 mcg/kg/min, Titrate infusion by: 5 mcg/kg/min, Titrate every: 2 minutes, Notify physician if: Unachievable RASS goal despite max dose, Titration Priority: 1st Rate Change 10/21/2022 7:41 AM CDT 40 mcg/kg/min 22.87 mL/hr $ New Bag/Syringe 10/21/2022 4:48 AM CDT 45 mcg/kg/min 25. 73 mL/hr $ New Bag/Syringe 10/21/2022 12:14 AM CDT 45 mcg/kg/min 25 .73 mL/hr propofol (Diprivan) infusion 0-50 mcg/kg/min ? 95.3 kg (0-28.59 mL/hr), Intravenous, CONTINUOUS, Starting on Sun10/23/22 at 1000, Until Sun10/23/22 at 1422, Above RASS goal: Assess and treat pain first if CPOT greater than 2. If agitation persists increase rate per order. At RASS goal and no change in 4 hours: Decrease rate per order. Below RASS goal (unarousable): Hold infusion until at goal RASS then restart at 50% previous rate. If significant hemodynamic changes notify physician for instructions. Notify physician for inability to reach goals despite maximal dosage. Note: The CPOT goal should be achieved first with the use of the ordered analgesic medication prior to targeting RASS goal with the sedative. Vial and Tubing should be changed and/or discarded every 12 hours., Titration Parameters: Standard Parameters, Indication: Sedation, Initiate infusion at: 5 mcg/kg/min, Titrate infusion by: 5 mcg/kg/min, Titrate every: 2 minutes, Notify physician if: Unachievable RASS goal despite max dose, Titration Priority: 1st Rate Change 10/23/2022 12:35 PM CDT 5 mcg/kg/min 2.86 mL/hr Rate Change 10/23/2022 12:20 PM CDT 10 mcg/kg/min 5.72 mL/ hr Bolus Current Bag/Med 10/23/2022 9:34 AM CDT prothrombin complex human (Kcentra) injection 2,116 Units 2,116 Units, at 504 mL/hr, Intravenous, ONCE, 1 dose, On Sun11/10/22 at 1800, Must be given with primary line DOSE CALCULATED on FACTOR IX UNITS Pharmacy to round DOSE to nearest whole vial size Use chart below if rate not auto-populated < 30 kg = 0-504 ml/hr (7.2 ml/kg/hr) 30-40 kg = 252 ml/hr 40-45 kg = 288 ml/hr? 45-50 kg = ??324 ml/hr 50-55 kg = 360 ml/hr 55-60 kg = 396 ml/hr 60-65 kg = 432 ml/hr 65-70 kg = 468 ml/hr >70 kg = 504 ml/hr Max Rate 504 ml/hr $ New Bag/Syringe 11/10/2022 6:49 PM CDT 2,116 Units 504 mL/hr senna-docusate (Senokot-S) tablet 1 tablet 1 tablet, Enteral Tube, DAILY, First dose on Sun10/20/22 at 1730, Until Discontinued $ Given 11/04/2022 8:39 AM CDT 1 tablet G Tube $ Given 11/03/2022 9:15 AM CDT 1 tablet G Tube $ Given 11/02/2022 9:34 AM CDT 1 tablet G Tube senna-docusate (Senokot-S) tablet 2 tablet 2 tablet, Enteral Tube, DAILY, First dose (after last modification) on Sun11/05/22 at 0900, Until Discontinued $ Given 11/14/2022 8:08 AM CDT 2 tablets G Tube $ Given 11/13/2022 8:29 AM CDT 2 tablets G Tube $ Given 11/12/2022 9:58 AM CDT 2 tablets G Tube senna-docusate (Senokot-S) tablet 2 tablet 2 tablet, Enteral Tube, DAILY PRN, Constipation, Starting on Sun11/14/22 at 1100, Until Sun11/17/22 at 1626, Second line for constipation sodium - potassium phosphates (K Phos Neutral) tablet 1 tablet 1 tablet, Enteral Tube, 2 TIMES DAILY, 2 doses, First dose on Sun11/12/22 at 0900, Last dose on Sun11/12/22 at 2100, Contains Phos 8 mmol, K+ 1.1 mEq, Na 13 mEq per tablet $ Given 11/12/2022 9:43 PM CDT 1 tablet J Tub e $ Given 11/12/2022 9:59 AM CDT 1 tablet G Tube tamsulosin (Flomax) capsule 0.4 mg 0.4 mg, Oral, DAILY, First dose on Sun10/20/22 at 0945, Until Discontinued, At the same time every day after a meal. Do not crush or chew. May open capsule and administer contents per tube but do not crush, chew, or dissolve granules. $ Given 10/24/2022 8:04 AM CDT 0.4 mg NG Tube $ Given 10/23/2022 9:06 AM CDT 0.4 mg $ Given 10/22/2022 9:38 AM CDT 0.4 mg NG Tube tamsulosin (Flomax) capsule 0.4 mg 0.4 mg, Enteral Tube, DAILY, First dose (after last modification) on Sun10/25/22 at 0900, Until Discontinued, At the same time every day after a meal. Do not crush or chew. May open capsule and administer contents per tube but do not crush, chew, or dissolve granules. $ Given 11/17/2022 9:10 AM CDT 0.4 mg G Tube $ Given 11/16/2022 10:04 AM CDT 0.4 mg G Tube $ Given 11/15/2022 9:20 AM CDT 0.4 mg G Tube tenecteplase (TNKase) injection 24 mg 24 mg (rounded from 23.825 mg = 0.25 mg/kg ? 95.3 kg), Intravenous, ONCE, 1 dose, On [place] 10/19/22 at 0845, Give rapid bolus over 5 seconds. May administer when BP at or less than 185/110. Blood pressure management after that per the Target Blood Pressure order below. Dilute to 5 mg/mL; Administer over 5 seconds, The patient and or family members understand the potential risks and benefits from treatment. I understand, Upon review of the above inclusion/exclusion criteria, thrombolytic administration is deemed appropriate for this patient. Criteria Reviewed $ Given 10/19/2022 8:32 AM CDT 24 mg triamcinolone acetonide (Kenalog) 0.1 % ointment Topical, 2 TIMES DAILY, First dose on Sun11/12/22 at 2100, Until Discontinued, Apply to affected areas 2 times daily $ Given 11/15/2022 9:30 AM CDT $ Given 11/14/2022 8:26 PM CDT $ Given 11/14/2022 8:14 AM CDT triamcinolone acetonide (Kenalog) 0.1 % ointment Topical, 2 TIMES DAILY, First dose on Sun11/15/22 at 1330, Until Discontinued, Apply to itchy areas on skin, especially at sites where adhesives are placed, twice daily. $ Given 11/17/2022 9:10 AM CDT $ Given 11/15/2022 9:43 PM CDT $ Given 11/15/2022 1:48 PM CDT vancomycin (Vancocin) 1,250 mg in 250 mL NaCl IVPB Premix 1,250 mg, at 200 mL/hr, Intravenous, EVERY 8 HOURS, First dose on Sun10/25/22 at 1000, Until Discontinued, Indication for anti-infective therapy: Suspected infection, Site of anti-infective therapy: Blood $ New Bag/Syringe 10/26/2022 10:12 AM CDT 1,250 mg 200 mL/hr $ New Bag/Syringe 10/26/2022 2:20 AM CDT 1,250 mg 200 mL /hr $ New Bag/Syringe 10/25/2022 5:56 PM CDT 1,250 mg 200 mL /hr vancomycin (Vancocin) 1,500 mg in 500 mL NaCl IVPB Premix 1,500 mg, at 333.33 mL/hr, Intravenous, EVERY 8 HOURS, First dose (after last modification) on Sun10/26/22 at 1800, Until Discontinued, Indication for anti-infective therapy: Suspected infection, Site of anti-infective therapy: Blood, FINE HAIRER $ New Bag/Syringe 10/28/2022 11:34 AM CDT 1,500 mg 333.33 mL/hr $ New Bag/Syringe 10/28/2022 2:40 AM CDT 1,500 mg 333.33 mL/hr $ New Bag/Syringe 10/27/2022 6:57 PM CDT 1,500 mg 333.33 mL/hr vancomycin (Vancocin) 1,500 mg in 500 mL NaCl IVPB Premix 1,500 mg, at 333.33 mL/hr, Intravenous, EVERY 8 HOURS, First dose (after last modification) on Sun10/31/22 at 1600, Until Discontinued, Indication for anti-infective therapy: Suspected infection, Site of anti-infective therapy: FINE HAIRER $ New Bag/Syringe 11/08/2022 2:16 AM CDT 1,500 mg 333.33 mL/hr $ New Bag/Syringe 11/07/2022 6:24 PM CDT 1,500 mg 333.33 mL/hr $ New Bag/Syringe 11/07/2022 10:59 AM CDT 1,500 mg 333.3 3 mL/hr vancomycin (Vancocin) 1,500 mg in 500 mL NaCl IVPB Premix 1,500 mg, at 333.33 mL/hr, Intravenous, EVERY 8 HOURS, First dose on Sun11/08/22 at 1600, Until Discontinued, Indication for anti-infective therapy: Documented infection, Site of anti-infective therapy: Blood $ New Bag/Syringe 11/12/2022 11:56 AM CDT 1,500 mg 333.33 mL/hr $ New Bag/Syringe 11/12/2022 1:58 AM CDT 1,500 mg 333.33 mL/hr $ New Bag/Syringe 11/11/2022 6:03 PM CDT 1,500 mg 333.33 mL/hr vancomycin (Vancocin) 1,750 mg in 535 mL IVPB 1,750 mg, at 305.71 mL/hr, Intravenous, EVERY 8 HOURS, First dose on Sun10/28/22 at 1900, Until Discontinued, Indication for anti-infective therapy: Suspected infection, Site of anti-infective therapy: FINE HAIRER $ New Bag/Syringe 10/31/2022 4:26 AM CDT 1,750 mg 305.71 mL/hr Current Rate 10/30/2022 8:38 PM CDT 305.71 mL/h r Restarted 10/30/2022 8:37 PM CDT 305.71 mL/hr vancomycin (Vancocin) 2,250 mg in 545 mL IVPB 2,250 mg, at 242.22 mL/hr, Intravenous, ONCE, 1 dose, On Sun10/25/22 at 0200, Indication for anti-infective therapy: Suspected infection, Site of anti-infective therapy: Blood $ New Bag/Syringe 10/25/2022 2:00 AM CDT 2,250 mg 242.22 mL/hr verapamil (Isoptin) tablet 40 mg 40 mg, Enteral Tube, EVERY 8 HOURS, First dose on Sun10/20/22 at 1515, Until Discontinued $ Given 11/17/2022 2:04 PM CDT 40 mg G Tube $ Given 11/17/2022 5:34 AM CDT 40 mg G Tube $ Given 11/16/2022 9:55 PM CDT 40 mg G Tube vitamin D3 (Cholecalciferol) 25 MCG (1000 UNITS) tablet 2,000 Units 2,000 Units, Enteral Tube, DAILY, First dose (after last modification) on Sun10/21/22 at 0900, Until Discontinued, 1000 units = 25 mcg $ Given 11/17/2022 9:10 AM CDT 2,000 Units G T ube $ Given 11/16/2022 10:04 AM CDT 2,000 Units G Tube $ Given 11/15/2022 9:20 AM CDT 2,000 Units G Tube warfarin (Coumadin) dose per pharmacy Other, DAILY AT 1700, First dose on Sun11/17/22 at 1700, Until Discontinued, Call pharmacy daily for warfarin order if not already available. Do not delete or modify this order unless you are discontinuing warfarin!, Diagnosis requiring anticoagulation? embolism and documental femoral vessel thrombus, INR GOAL: 2.0-3.0 warfarin (Coumadin) tablet 5 mg 5 mg, Enteral Tube, ONCE WARFARIN, 1 dose, On Sun11/03/22 at 1700, . WASTE DISPOSAL INSTRUCTIONS: P-Listed item. Special Disposal Required. . $ Given 11/03/2022 6:14 PM CDT 5 mg G Tube warfarin (Coumadin) tablet 5 mg 5 mg, Enteral Tube, ONCE WARFARIN, 1 dose, On 11/04/22 at 1700, . WASTE DISPOSAL INSTRUCTIONS: P-Listed item. Special Disposal Required. . $ Given 11/04/2022 6:12 PM CDT 5 mg G Tube warfarin (Coumadin) tablet 5 mg 5 mg, Enteral Tube, ONCE WARFARIN, 1 dose, On 11/05/22 at 1700, . WASTE DISPOSAL INSTRUCTIONS: P-Listed item. Special Disposal Required. . $ Given 11/05/2022 4:14 PM CDT 5 mg G Tube warfarin (Coumadin) tablet 5 mg 5 mg, Enteral Tube, ONCE WARFARIN, 1 dose, On 11/06/22 at 1700, . WASTE DISPOSAL INSTRUCTIONS: P-Listed item. Special Disposal Required. . $ Given 11/06/2022 6:10 PM CDT 5 mg G Tube warfarin (Coumadin) tablet 5 mg 5 mg, Enteral Tube, ONCE WARFARIN, 1 dose, On Tu11/07/22 at 1700, . WASTE DISPOSAL INSTRUCTIONS: P-Listed item. Special Disposal Required. . $ Given 11/07/2022 6:07 PM CDT 5 mg G Tube warfarin (Coumadin) tablet 5 mg 5 mg, Enteral Tube, ONCE WARFARIN, 1 dose, On 11/11/22 at 1700, . WASTE DISPOSAL INSTRUCTIONS: P-Listed item. Special Disposal Required. . $ Given 11/11/2022 4:21 PM CDT 5 mg G Tube warfarin (Coumadin) tablet 5 mg 5 mg, Oral, ONCE WARFARIN, 1 dose, On Sun11/17/22 at 1700, . WASTE DISPOSAL INSTRUCTIONS: P-Listed item. Special Disposal Required. . warfarin (Coumadin) tablet 6 mg 6 mg, Enteral Tube, ONCE WARFARIN, 1 dose, On Sun11/08/22 at 1700, . WASTE DISPOSAL INSTRUCTIONS: P-Listed item. Special Disposal Required. . $ Given 11/08/2022 4:24 PM CDT 6 mg G Tube warfarin (Coumadin) tablet 6 mg 6 mg, Enteral Tube, ONCE WARFARIN, 1 dose, On Sun11/09/22 at 1700, . WASTE DISPOSAL INSTRUCTIONS: P-Listed item. Special Disposal Required. . $ Given 11/09/2022 5:46 PM CDT 6 mg G Tube [id number] (HOG) enema 360 mL 360 mL, Rectal, ONCE, 1 dose, On Sun11/05/22 at 2015 $ Given 11/05/2022 8:27 PM CDT 360 mL documented in this encounter Active and Recently Administered Medications Times are shown in CDT. Scheduled Medication Order 11/15/2022 11/16/2022 11/17/2022 0.9% NaCl injection 10-40 mL 10-40 mL, Intracatheter, EVERY 8 HOURS, First dose on Sun11/07/22 at 1630, Until Discontinued, Flush each lumen of mid-line with 10ml NS IVP every 8 hours (regardless of continuous IV infusion). Flushing may be contraindicated if concentrated drips are infusing. 0548 (Not Administered - Provider: Bess John RN - Reason: See Comments)1350 ($ Given - Provider: Radha Covarrubias RN)2133 ($ Given - Provider: Shruti Samuel RN) 0627 (Not Administered - Provider: Shruti Samuel RN - Reason: IV Currently Infusing)1536 (Not Administered - Provider: Tasha Clay RN - Reason: See Comments - Comment: no indication)2148 (Not Administered - Provider: Carrillo Avilez RN - Reason: See Comments) 0545 (Not Administered - Provider: Carrillo Avilez RN - Reason: See Comments)1330 (Not Administered - Provider: Chin Cabello, AMBROSE - Reason: IV Currently Infusing) 0.9% NaCl injection 10-40 mL 10-40 mL, Intracatheter, EVERY 8 HOURS, First dose on Sun11/16/22 at 1400, Until Discontinued, Flush each lumen of mid-line with 10ml NS IVP every 8 hours (regardless of continuous IV infusion). Flushing may be contraindicated if concentrated drips are infusing. 1535 (Not Administered - Provider: Tasha Clay RN - Reason: See Comments - Comment: NO INDICATION)2147 (Not Administered - Provider: Carrillo Avilez RN - Reason: See Comments - Comment: Flushed Left PIV) 0546 (Not Administered - Provider: Carrillo Avilez RN - Reason: See Comments)1330 (Not Administered - Provider: Chin Cabello RN - Reason: IV Currently Infusing) 0.9% NaCl injection 3 mL(Linked Group 1) 3 mL, Intracatheter, EVERY 8 HOURS, First dose on Sun10/19/22 at 0900, Until Discontinued 0545 ($ Given - Provider: Bess John RN)1350 ($ Given - Provider: Radha Covarrubias RN)2134 ($ Given - Provider: Shruti Samuel RN) 0557 ($ Given - Provider: Shruti Samuel, AMBROSE)1513 ($ Given - Provider: Tasha Clay, AMBROSE)2146 ($ Given - Provider: Carrillo Avilez RN) 0534 ($ Given - Provider: Carrillo Avilez RN)1330 (Not Administered - Provider: Chin Cabello, AMBROSE - Reason: IV Currently Infusing) 0.9% NaCl IV bolus (COMPLETED) 500 mL, at 491.8 mL/hr, Administer over 61 Minutes, ONCE, 1 dose, On Sun11/15/22 at 0830 1001 ($ New Bag/Syringe - Provider: Radha Covarrubias, RN)1454 (Stopped - Provider: Radha Covarrubias, RN) doxycycline monohydrate capsule 100 mg 100 mg, Enteral Tube, EVERY 12 HOURS, First dose on Sun11/05/22 at 2100, Until Discontinued, Administer at least 2 hours before or 4 hours after antacids, sucralfate, metals (eg, iron, zinc), multivitamin preparations, tube feeds Administer with 8 oz of water to prevent localized caustic injury. Flush thoroughly with water if administered by enteral tube., Indication for anti-infective therapy: Suspected infection, Site of anti-infective therapy: Blood, Urine/Genitourinary, Upper Respiratory, Lower Respiratory, FINE HAIRER 0920 ($ Given - Provider: Radha Covarrubias RN)212 ($ Given - Provider: Shruti Samuel RN) 1004 ($ Given - Provider: Tasha Clay, AMBROSE)2146 ($ Given - Provider: Carrillo Avilez, AMBROSE) 0910 ($ Given - Provider: Chin Cabello, RN) enoxaparin (Lovenox) injection 100 mg 100 mg (rounded from 95.3 mg = 1 mg/kg ? 95.3 kg), Subcutaneous, EVERY 12 HOURS, First dose on [place] 11/16/22 at 0830, Until Discontinued, (for prefilled syringes) do not expel air bubble from the syringe prior to the injection Remind Patient to not rub injection site. Could cause hematoma. 1004 ($ Given - Provider: Tasha Clay, AMBROSE)2145 ($ Given - Provider: Carrillo Avilez, AMBROSE) 0909 ($ Given - Provider: Chin Cabello, RN) guaiFENesin (Robitussin) solution 10 mL 10 mL, Enteral Tube, EVERY 12 HOURS, First dose on Sun10/23/22 at 0915, Until Discontinued 0920 ($ Given - Provider: Radha Covarrubias RN)2131 ($ Given - Provider: Shruti Samuel RN) 1207 ($ Given - Provider: Tasha Clay RN - Comment: AM dose given late)2146 ($ Given - Provider: Carrillo Avilez, AMBROSE) 0910 ($ Given - Provider: Chin Cabello, AMBROSE) iopamidol (Isovue 370) 76 % contrast Intravenous, CONTRAST ONCE, Starting on [place] 11/16/22 at 1624, Until 11/17/22 at 1626 1624 ($ Given - Contrast - Provider: Ana Montaño, RT(R)CT) lansoprazole (Prevacid) suspension 30 mg 30 mg, Enteral Tube, DAILY BEFORE BREAKFAST, First dose (after last reorder) on Sun11/15/22 at 0700, Until Discontinued, Refrigerate. Shake well before using. 0544 ($ Given - Provider: Bess John RN) 0556 ($ Given - Provider: Shruti Samuel RN) 0534 ($ Given - Provider: Carrillo Avilez, AMBROSE) lidocaine (Xylocaine) 1 % injection (COMPLETED) Subcutaneous, ONCE, 1 dose, On Sun11/15/22 at 1215 1158 ($ Given - Provider: Josesito Alexis, RT(R) - Comment: Lumbar Region) loratadine (Claritin) tablet 10 mg 10 mg, Enteral Tube, DAILY, First dose (after last modification) on Sun10/21/22 at 0900, Until Discontinued 0920 ($ Given - Provider: Radha Covarrubias RN) 1004 ($ Given - Provider: Tasha Clay, AMBROSE) 0910 ($ Given - Provider: Chin Cabello RN) meropenem (Merrem) 2,000 mg in 0.9% NaCl IV 140 mL IVPB 2,000 mg, at 280 mL/hr, Intravenous, EVERY 8 HOURS, First dose on Sun11/12/22 at 0830, Until Discontinued, Indication for restricted (Tier 2) anti-infective therapy (empiric or definitive treatment): Worsening/not improving on Zosyn or Cefepime 0213 ($ New Bag/Syringe - Provider: Bess John RN)0249 (Stopped - Provider: Bess John RN)1002 ($ New Bag/Syringe - Provider: Radha Covarrubias RN)1032 (Stopped - Provider: Radha Covarrubias RN)1724 ($ New Bag/Syringe - Provider: Radha Covarrubias RN)1758 (Stopped - Provider: Radha Covarrubias RN) 0406 ($ New Bag/Syringe - Provider: Shruti Samuel RN)0438 (Stopped - Provider: Shruti Samuel RN)1209 ($ New Bag/Syringe - Provider: Tasha Clay, AMBROSE)1246 (Stopped - Provider: Tasha Clay, RN)2146 ($ New Bag/Syringe - Provider: Carrillo Avilez, AMBROSE)2226 (Stopped - Provider: Carrillo Avilez, AMBROSE) 0408 ($ New Bag/Syringe - Provider: Carrillo Avilez RN)0443 (Stopped - Provider: Carrillo Aivlez RN)1327 ($ New Bag/Syringe - Provider: Chin Cabello, RN)1403 (Stopped - Provider: Chin Cabello, RN) metoprolol tartrate IR (Lopressor) tablet 25 mg 25 mg, Enteral Tube, EVERY 12 HOURS, First dose (after last modification) on Sun10/23/22 at 0900, Until Discontinued, Please hold for SBP < 90 mmHg 0920 ($ Given - Provider: Radha Covarrubias RN)2129 ($ Given - Provider: Shruti Samuel RN) 1003 ($ Given - Provider: Tasha Clay, RN)2148 ($ Given - Provider: Carrillo Avilez, AMBROSE) 0910 ($ Given - Provider: Chin Cabello, RN) perflutren lipid microsphere (Definity) injection 0.5 mL 0.5 mL, Intravenous, INTRA-PROCEDURE MULTIPLE, 6 doses, Starting on Sun11/06/22 at 1308, Until Sun11/17/22 at 1626, For Echo Procedure - Per Protocol Give slowly Shake well before using. tamsulosin (Flomax) capsule 0.4 mg 0.4 mg, Enteral Tube, DAILY, First dose (after last modification) on Sun10/25/22 at 0900, Until Discontinued, At the same time every day after a meal. Do not crush or chew. May open capsule and administer contents per tube but do not crush, chew, or dissolve granules. 0920 ($ Given - Provider: Radha Covarrubias RN) 1004 ($ Given - Provider: Tasha Clay, RN) 0910 ($ Given - Provider: Chin Cabello, RN) triamcinolone acetonide (Kenalog) 0.1 % ointment (CANCELED) Topical, 2 TIMES DAILY, First dose on Sun11/12/22 at 2100, Until Discontinued, Apply to affected areas 2 times daily 0930 ($ Given - Provider: Radha Covarrubias RN) triamcinolone acetonide (Kenalog) 0.1 % ointment Topical, 2 TIMES DAILY, First dose on Sun11/15/22 at 1330, Until Discontinued, Apply to itchy areas on skin, especially at sites where adhesives are placed, twice daily. 1348 ($ Given - Provider: Radha Covarrubias RN)2143 ($ Given - Provider: Shruti Samuel RN) 1012 (Not Administered - Provider: Tasha Clay RN - Reason: Refused-Patient)2149 (Not Administered - Provider: Carrillo Avilez RN - Reason: Refused-Patient) 0910 ($ Given - Provider: Chin Cabello, AMBROSE) verapamil (Isoptin) tablet 40 mg 40 mg, Enteral Tube, EVERY 8 HOURS, First dose on Sun10/20/22 at 1515, Until Discontinued 0545 ($ Given - Provider: Bess John RN)1348 ($ Given - Provider: Radha Covarrubias RN)2133 ($ Given - Provider: Shruti Samuel RN) 0556 ($ Given - Provider: Shruti Samuel RN)1512 ($ Given - Provider: Tasha Clay RN)2155 ($ Given - Provider: Carrillo Avilez RN) 0534 ($ Given - Provider: Carrillo vAilez RN)1404 ($ Given - Provider: Chin Cabello, AMBROSE) vitamin D3 (Cholecalciferol) 25 MCG (1000 UNITS) tablet 2,000 Units 2,000 Units, Enteral Tube, DAILY, First dose (after last modification) on Sun10/21/22 at 0900, Until Discontinued, 1000 units = 25 mcg 0920 ($ Given - Provider: Radha Covarrubias RN) 1004 ($ Given - Provider: Tasha Clay RN) 0910 ($ Given - Provider: Chin Cabello, AMBROSE) warfarin (Coumadin) dose per pharmacy Other, DAILY AT 1700, First dose on Sun11/17/22 at 1700, Until Discontinued, Call pharmacy daily for warfarin order if not already available. Do not delete or modify this order unless you are discontinuing warfarin!, Diagnosis requiring anticoagulation? embolism and documental femoral vessel thrombus, INR GOAL: 2.0-3.0 warfarin (Coumadin) tablet 5 mg 5 mg, Oral, ONCE WARFARIN, 1 dose, On Sun11/17/22 at 1700, . WASTE DISPOSAL INSTRUCTIONS: P-Listed item. Special Disposal Required. . PRN Medication Order 11/15/2022 11/16/2022 11/17/2022 0.9% NaCl injection 10-40 mL 10-40 mL, Intravenous, PRN, Other, mid-line flush, Starting on Sun11/07/22 at 1545, Until Sun11/17/22 at 1626, Flush each lumen of mid-line with 10ml NS IVP before and after medication/solution administration, before and after blood product administration, when obtaining blood sample, discard 5-10ml blood, then obtain sample. Upon completion, pulse flush with 20ml sterile NS IVP and PRN to determine patency. 0.9% NaCl injection 10-40 mL 10-40 mL, Intravenous, PRN, Other, mid-line flush, Starting on Sun11/16/22 at 1042, Until Sun11/17/22 at 1626, Flush each lumen of mid-line with 10ml NS IVP before and after medication/solution administration, before and after blood product administration, when obtaining blood sample, discard 5-10ml blood, then obtain sample. Upon completion, pulse flush with 20ml sterile NS IVP and PRN to determine patency. 0.9% NaCl injection 3 mL(Linked Group 1) 3 mL, Intracatheter, PRN, Other, peripheral line flush, Starting on Sun10/19/22 at 0820, Until Sun11/17/22 at 1626, Flush after each use and blood draws. 0557 ($ Given - Provider: Shruti Samuel RN) acetaminophen (Tylenol) tablet 500 mg 500 mg, Enteral Tube, EVERY 6 HOURS PRN, Fever, Mild Pain, Moderate Pain, Starting on Sun11/14/22 at 1100, Until Sun11/17/22 at 1626, Patient preference for lesser PRN pain meds may be honored when the patient requests a less strong medication, a lower dose, or a less intrusive route of administration when the lesser drug, dose and route have been ordered for the patient. This patient request must be documented in the MAR. 0622 ($ Given - Provider: Bess John RN)1352 ($ Given - Provider: Radha Covarrubias RN) 1609 ($ Given - Provider: Tasha Clay RN) 0534 ($ Given - Provider: Carrillo Avilez RN) bisacodyl (Dulcolax) suppository 10 mg 10 mg, Rectal, DAILY PRN, Constipation, Starting on Sun11/05/22 at 0730, Until Sun11/17/22 at 1626, Third line for constipation oxyCODONE (immediate release) (Roxicodone) tablet 5 mg 5 mg, Enteral Tube, EVERY 6 HOURS PRN, CPOT >2, Starting on Sun11/01/22 at 1035, Until Sun11/17/22 at 1626, Patient preference for lesser PRN pain meds may be honored when the patient requests a less strong medication, a lower dose, or a less intrusive route of administration when the lesser drug, dose and route have been ordered for the patient. This patient request must be documented in the MAR. 0921 ($ Given - Provider: Radha Covarrubias RN) 0340 ($ Given - Provider: Shruti Samuel RN)1003 ($ Given - Provider: Tasha Clay RN)1740 ($ Given - Provider: Tasha Clay RN) polyethylene glycol 3350 (Miralax) packet 17 g 17 g, Enteral Tube, DAILY PRN, Constipation, Starting on Sun11/14/22 at 1100, Until Sun11/17/22 at 1626, First line for constipation Mix in 8 ounces of water, juice, soda, coffee or tea prior to administration senna-docusate (Senokot-S) tablet 2 tablet 2 tablet, Enteral Tube, DAILY PRN, Constipation, Starting on Sun11/14/22 at 1100, Until Sun11/17/22 at 1626, Second line for constipation Linked Groups Order Group 1: SALINE LOCK, INSERT AND MAINTAIN (CANCELED) Routine, CONTINUOUS, Starting on Sun10/19/22 at 0830, Until Specified, IN OPPOSITE ARM., New collection, Task Completed: Yes And 0.9% NaCl injection 3 mLJump to med 3 mL, Intracatheter, EVERY 8 HOURS, First dose on Sun10/19/22 at 0900, Until Discontinued And 0.9% NaCl injection 3 mLJump to med 3 mL, Intracatheter, PRN, Other, peripheral line flush, Starting on Sun10/19/22 at 0820, Until 11/17/22 at 1626, Flush after each use and blood draws. documented in this encounter Additional Health Concerns Infection Onset Date Last Indicated Resolved Time COVID-19 Under Investigation 11/05/2022 11/05/2022 11/05/2022 5:32 PM CDT documented as of this encounter Care Teams Gym Teacher Relationship Specialty Start Date End Date Jean Joy MD PCP - OBGYN 12/27/07 Yvan Booth MD [address] [place] [id number] PCP - General 11/04/09 01/04/23 Jaden Thakur DO [address] [place] [address] [id number] PCP - Attributed-[facility] 09/10/19 06/28/23 documented as of this encounter
--- OUTSIDE RECORDS SUMMARY | 2024-03-19 20:38 | XMS_ITS | Encounter Summary ---
Author Organization [facility] Address [address] [place] [address] Care Team Providers Care Pharmacy Picking Technician Name Role Phone Jean Joy MD Unavailable [phone] Yvan Booth MD Primary Care Provider [phone] Jaden Thakur DO Unavailable [phone] Reason for Visit * Auth/Cert (Routine) Specialty Diagnoses / Procedures Referred By Contac t Referred To Contact Referral ID Status Reason Start Date Expiration Date Visits Re quested Visits Authorized [id number] 1 1 Encounter Details Date Type Department Care Team (Late st Contact Info) Description 11/10/2022 7:14 PM CDT Anesthesia Event [facility] [address] [place] [id number] Ashly Schaeffer MD [address] [place] [id number] Edmar Shanks Anes Asst [address] [place] [address] Anesthesia Record Procedure Summary Procedure Name Responsible Anesthesiologist Anesthesia Start Time Anesthesia Stop Time EGD, POSS. EX-LAP LEVEL 3 @ 1500 (Abdomen) Ashly Schaeffer MD 11/10/22191311/10/222056 Events Date Time Event Comment 11/10/2022 1622 1914 An Start 1913 Pt In Room 1914 An Start Data 1916 PT Reassessment 1919 Induction 1922 An Intubation 1950 Anes Ready 1950 Time Out Anesthesia part icipated in timeout at the time documented in the record by nursing 1950 Proc Start 1953 Quick Note Continuing vanc omycin from pre-op 2038 Proc Stop 2038 An Emergence 2046 Extubation 2046 ANPTO2 2046 an stop data 2046 Pt out of Room 2056 An Stop Meds Name Total fentaNYL 100 mcg/2ml injection 200 mcg propofol 200mg/20mL injection 120 mg rocuronium 50 mg/5 mL injection 80 mg dexamethasone 10 mg/ml PF injection 4 mg sugammadex 200 mg/2mL injection 400 mg vancomycin (Vancocin) 1,500 mg in 500 mL NaCl IVPB Premix 0 mg esmolol 100 mg/10mL injection 20 mg * Agents Name Insp. N2O Exp. Sevoflurane Exp. N2O O2 Air Insp. Sevoflurane * Blood No blood administrations on file. Lines, Drains, and Airways Type Details Placement Removal Procedural Site (Incision) 10/20/22; 2116; Right; Head; Bacitracin ointment. carla 4x4, telfa,mediport tape ; 11/17/22; 215410/20/22 2116 by Germaine Loja RN 11/17/22 215 by Generic, Auto Release Procedural Site (Incision) 10/30/22; 1439; Right; Groin; CLOSURE, RIGHT GROIN SUTURED.EXOFIN SKIN GLUE; 11/17/22; 215410/30/22 1439 by Alfreda Richards RN 11/17/22 215 by Generic, Auto Release Enteral - 11/01/22; 1445 (Per GI note); PEG; Abdomen, Left, Upper; 24 (Per GI note); 01/10/23; 1646; Not present on admission, removal date unknown 11/01/22 1445 by Jessica Enriquez RN 01/10/23 1646 by Dixie Fuentes RN Peripheral IV Date: 11/07/22; Time : 1527; Orientation: Left, Posterior; Placed By: AMBROSE Canchola 11/07/22 1527 by Jesika Naranjo RN 11/15/22 1510 by Radha Covarrubias RN Peripheral IV Date: 11/10/22; Time : 0000; Orientation: Left 11/10/22 0000 by Michelle Arce RN 11/15/22 1500 by Stacy Mcintyre RN Urethral Catheter 11/10/22 (acevedo was inserted by urology team); 1300; Non-latex; (acevedo was inserted by urology team); 16; 10 mL; 11/17/22; 215411/10/22 1300 by Michelle Arce RN 11/17/222154 by Generic, Auto Release Peripheral IV Date: 11/10/22; Time : 184; Orientation: Left; Placed By: Timoteo Stock RN; Tolerance: Well 11/10/221844 by Haleigh Jain RN 11/11/22 1000 by Michelle Arce RN ETT Date: 11/10/22; Time : 193; Placed By: Ashly Schaeffer MD; Vent: easy mask; Induction: Standard IV; Blade Type: Video; Blade Size: 3; Laryngoscopy View: Grade 1 (full cords); Intubation Adjuncts: Stylet; Tube: Endotracheal Tube; Placement: Oral; Tube Type: Cuffed-inflated; Tube Size(mm): 7 MM; Depth of Insertion: 22 CM; Measured From: lips; Attempts: 1; Cuff Infated: Air; Verified By: Direct visualization, Bilateral breath sounds, Chest Auscultation, CO2 Monitor 11/10/221932 by Fly Barton DO 11/10/222046 by Fly Barton DO Procedural Site (Incision) 11/10/22; 2104; Abdomen; EGD SCOPE # [id number] USED FOR THE EGD; 11/17/22; 215411/10/222104 by Germaine Loja RN 11/17/222154 by Generic, Auto Release documented in this [...] Recorded Patient Health Questionnaire-2 Score 0 11/15/2022 [facility] - Occupational [...] as of this encounter Progress Notes * Tim Strange DO - 11/14/2022 8:05 AM CDT ANESTHESIA POSTOP EVALUATION NOTE Procedure: EGD, POSS. 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 * Ashly Schaeffer MD - 11/10/2022 9:45 PM CDT ANESTHESIA POSTOP EVALUATION NOTE Procedure: EGD, POSS. EX-LAP LEVEL 3 @ 1500 (Abdomen) Consuelo Darby is a 42 year old female Patient Vitals for the past 6 hrs: BP Temp Pulse Resp SpO2 Pain Rating Score #1 Pain Scale/Observation Pulse - (SPO2/Cuff) 11/10/22 1600 -- -- -- -- -- 2 N -- 11/10/22 1645 -- -- -- -- -- 3 -- -- 11/10/22 1839 115/59 (!) 102 ??F (38.9 ??C) 105 20 -- 0 N -- 11/10/22 1841 -- -- 102 18 95 % -- -- 103 bpm 11/10/22 1855 117/69 -- 105 21 91 % -- -- 105 bpm 11/10/22 1900 -- -- -- -- 94 % -- -- -- 11/10/222054 136/41 99.4 ??F (37.4 ??C) (!) 114 26 100 % -- F;B -- 11/10/222099 129/58 -- (!) 113 (!) 33 100 % -- -- -- 11/10/222104 126/64 -- (!) 116 20 100 % -- -- -- 11/10/222109 126/64 -- (!) 112 23 97 % -- F;B -- 11/10/222114 127/64 -- (!) 111 24 95 % -- -- -- 11/10/222119 125/63 -- (!) 111 23 95 % -- -- -- 11/10/222124 125/62 -- 109 24 94 % -- F;B -- 11/10/222129 123/65 -- (!) 110 25 94 % -- -- -- 11/10/222134 127/70 -- (!) 112 26 94 % -- -- -- 11/10/222135 -- -- -- -- -- -- F;B -- 11/10/222139 119/59 -- 108 20 90 % -- -- -- Anesthesia Type: general ETT Pre-op Diagnosis Codes: * 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 * Ashly Schaeffer MD - 11/10/2022 4:16 PM CDT ANESTHESIA PREOPERATIVE EVALUATION NOTE Procedure: EGD, POSS. EX-LAP LEVEL 3 @ 1500 (Abdomen) EXPLORATORY LAPAROTOMY (Abdomen) Vitals: Patient Vitals for the past 6 hrs: BP Temp Pulse SpO2 Pain Rating Score #1 11/10/22 1501 119/69 98.7 ??F (37.1 ??C) 104 99 % -- 11/10/22 1332 -- -- -- -- 0 11/10/22 1222 129/51 (!) 100.3 ??F (37.9 ??C) (!) 110 98 % -- LMP: Patient's last menstrual period was 02/01/2022 (approximate). OB Status: Continuous Control ANESTHESIA PRE-EVALUATION NOTE History of Present Illness: 42F p/w M1 occlusion s/p TNK and MT and TICI2b revascularization. TTE showed mobile aortic valve vegetation. Developed MCA syndrome s/p hemicrani. MT c/b R iliac and common femoral a. occlusion s/p thrombectomy. - Fever:Has glenis PEG fluid collection, too small for IR to drain. Tube feeds stopped at 1:30 pm today Previous Airway Management: ETT Placed: ETT Size: 7 Blade Size: 3 Mask Airway: Easy Physical Exam: No Orientation X3 Neck ROM: limited Lungs: clear to ausculation bilaterally ANESTHESIA PLAN ASA Score: 4 E Anesthesia Plan: general ETT Planned Induction: intravenous Planned Postop Destination: PACU (Per surgery) Anesthetic Plan discussion was: Consented (Per surgery) Use of blood product discussion was: Consented The patient's procedural Anesthetic Plan was discussed with the anesthesiologist, attending, resident and cafe assistant. BMI, Height, Weight Tobacco History Estimated body mass index is 36.05 kg/m?? as calculated from the following: Height as of this encounter: 1.626 m (5' 4 ). Weight as of this encounter: 95.3 kg (210 lb). Social History Tobacco Use Smoking Status Former ??? Packs/day: 0.50 ??? Types: Cigarettes ??? Quit date: 2014 ??? Years since quittin.6 Smokeless Tobacco Never Vaping Use ??? Vaping Use: Never used Alcohol History Drug History Social History Substance and Sexual Activity Alcohol Use No ??? Alcohol/week: 0.0 - 1.7 standard drinks of alcohol Comment: Occasional Social History Substance and Sexual Activity Drug Use No Outpatient Medications: Inpatient Medications: No outpatient medications have been marked as taking for the 10/19/22 encounter (Hospital Encounter). Current Facility-Administered Medications Medication Dose Last Admin ??? 0.9% NaCl 10-40 mL 10 mL at 11/10/22 1314 ??? 0.9% NaCl 10-40 mL ??? 0.9% NaCl 3 mL 3 mL at 11/10/22 1313 And ??? 0.9% NaCl 3 mL 3 mL at 11/09/22 0636 ??? acetaminophen 650 mg 650 mg at 11/10/22 1312 ??? atorvastatin 80 mg 80 mg at 11/09/22 2044 ??? bisacodyl 10 mg 10 mg at 11/05/22 1057 ??? cefepime 2 g Stopped at 11/10/22 0829 ??? dextrose 5 % and 0.9% NaCl New Bag at 11/10/22 1353 ??? diphenhydrAMINE-zinc acetate Given at 11/09/22 0905 ??? doxycycline monohydrate 100 mg 100 mg at 11/10/22 0932 ??? enoxaparin 1 mg/kg 100 mg at 11/10/22 0931 ??? gadobutrol 9 mL at 11/09/22 2350 ??? guaiFENesin 10 mL 10 mL at 11/10/22 0931 ??? iopamidol 100 mL at 11/09/22 1637 ??? lansoprazole 30 mg 30 mg at 11/10/22 0502 ??? loratadine 10 mg 10 mg at 11/10/22 0933 ??? metoprolol tartrate IR 25 mg 25 mg at 11/10/22 0933 ??? metroNIDAZOLE 500 mg Stopped at 11/10/22 1313 ??? oxyCODONE (immediate release) 5 mg 5 mg at 11/08/22 0929 ??? perflutren lipid microsphere 0.5 mL 0.5 mL at 11/06/22 1348 ??? polyethylene glycol 3350 17 g 17 g at 11/10/22 0934 ??? senna-docusate 2 tablet 2 tablet at 11/10/22 0932 ??? tamsulosin 0.4 mg 0.4 mg at 11/10/22 0933 ??? vancomycin 1,500 mg Stopped at 11/10/22 1119 ??? vancomycin (VANCOCIN) IV dose per pharmacy ??? verapamil 40 mg 40 mg at 11/10/22 1311 ??? Vitamin D3 (cholecalciferol) 2,000 Units 2,000 Units at 11/10/22 0933 ??? warfarin ??? warfarin 6 mg Allergies: Allergies Allergen Reactions ??? 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 Acute cerebrovascular accident (CVA) due to embolism of right middle cerebral artery (CMS/HCC) 10/19/2022 Priority: High ??? Nihss score 9 10/19/2022 Priority: High ??? Received intravenous tissue plasminogen activator (tPA) in emergency department 10/19/2022 Priority: High ??? Presence of externally removable percutaneous endoscopic gastrostomy (PEG) tube ([facility]/HCC) 2022 Priority: Not Prioritized ??? Hemianopsia 10/19/2022 [...] N/A; ESOPHAGOGASTRODUODENOSCOPY (EGD) DIAGNOSTIC with PEG Placement SENIOR WEB ARCHITECT Status: Patient's last menstrual period was 02/01/2022 (approximate). Continuous Control OB History Para Term AB [...] SARSCOV2 Not detected Recent Labs Component Name 10/19/22 1410 HCGURINE Negative Recent Labs Base Name 11/03/22 0520 [id number] 126* SPECIMENTYPE Cap Fingerstick Recent Labs Component Name 11/10/22 0224 10/23/22 0129 10/22/22 0153 WBC 3.6 - - RBC 3.23* - - HCT 29.4* - - HGB 9.4* - - PLTCOUNT 302 - - PLT - - 199 MCV 91.0 - - MCH 29.1 - - MCHC 32.0 - - MPV 10.9 - - - = values in this interval not displayed. Recent Labs Component Name 10/29/22 1119 ABORH B POS ABSCG NEG Recent Labs Component Name 11/05/22 1254 BLOODU 1+* WBCU 6-10* NITRITE Negative PROTEINU Negative Recent Labs Component Name 11/10/22222 POTASSIUM 3.6 CALCIUM 8.4 CO2 24 GLUCOSE 120* BUN 13 CREATININE 0.52* Recent Labs Component Name 11/10/22222 MAGNESIUM 2.0 Recent Labs Component Name 11/10/22222 PHOS 3.9 Recent Labs Component Name 10/30/22 1333 PH 7.40 PO2 228* PCO2 39 BE -0.5 Recent Labs Component Name 11/10/2222211/07/22 0305 11/06/22 2312 PTT - - 63.4* PT 20.5* - - INR 1.8 - - - = values in this interval not displayed. Recent Labs Component Name 11/06/22 0136 TSH 1.682 No results found for requested labs within last 120 days. Recent Labs Result Component Current Result Alkaline Phosphatase 73 (11/09/2022) ALT 77 (H) (11/09/2022) Anion Gap (AG) Arterial 12 (10/30/2022) Anion Gap 11 (11/10/2022) AST 67 (H) (11/09/2022) eGFR by CKD-EPI >90 (11/10/2022) documented in this encounter Procedure Notes * Fly Barton DO - 11/10/2022 7:32 PM CDTAssociated Order(s): ETT Placement Endotracheal Tube Placement: Patient Location: OR. Procedure: intubation (32230). Procedure Section: Sedation: IV sedation. Indications for Airway Management: airway protection Procedure pretreatments used? Yes Induction: standard IV Patient Position: sniffing Mask Ventilation: easy. Blade Type: Video Blade [...] auscultation and CO2 monitor Tube secured with: adhesive tape. Dentition unchanged? Yes Difficult Airway? No. Staff Section Anesthesia Provider: Ashly Schaeffer MD Provider #1: Fly Barton DO, Performed the procedure. documented in this encounter Miscellaneous Notes * Addendum Note - Tim Strange DO - 11/14/2022 8:07 AM CDT Addendum created 11/14/22806 by Tim Strange DO Clinical Note Signed * Anesthesia Transfer of Care - Fly Barton DO - 11/10/2022 8:57 PM CDT ANESTHESIA TRANSFER OF CARE NOTE Today's Date: 11/10/2022 Date of : 1980 Patient: Consuelo Darby Procedure(s): EGD, POSS. 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 -- Dispensed IK EVERY 8 HOURS 10/19/22 0821 10/19/22 0820 0.9% NaCl injection 3 mL See Hyperspace for full Linked Orders Report. -- Dispensed IK PRN 10/19/22 0821 11/05/22 1700 acetaminophen (Tylenol) tablet 650 mg -- Dispensed Enteral Tube EVERY 6 HOURS 11/05/22 1146 10/23/22 2100 atorvastatin (Lipitor) tablet 80 mg -- Dispensed Enteral Tube AT BEDTIME 10/23/22 1122 11/05/22 0730 bisacodyl (Dulcolax) suppository 10 mg -- Dispensed RE DAILY PRN 11/05/22 0730 11/05/22 1600 cefepime (Maxipime) 2,000 mg in 0.9% NaCl IV 50 mL IVPB -- Dispensed IV EVERY 8 HOURS 11/05/22 1528 11/10/22 1930 dexAMETHasone Sod Phosphate PF injection -- Sent IV PRN 11/10/22 1930 11/10/22 1330 dextrose 5 % and 0.9% NaCl infusion -- Dispensed IV CONTINUOUS 11/10/22 1248 10/26/22 1020 diphenhydrAMINE-zinc acetate (Benadryl Extra Strength) 2-0.1 % cream -- Dispensed TP PRN 10/26/22 1021 11/05/22 2100 doxycycline monohydrate capsule 100 mg -- Dispensed Enteral Tube EVERY 12 HOURS 11/05/22 1654 11/10/22 2045 esmolol (Brevibloc) injection -- Sent IV PRN 11/10/22 2046 11/10/22 1920 fentaNYL (PF) (Sublimaze) injection -- Sent IV PRN 11/10/22 1923 11/09/22 2350 gadobutrol (Gadavist) injection 11/11/22 2349 Dispensed IV CONTRAST ONCE 11/09/22 2350 10/23/22 0915 guaiFENesin (Robitussin) solution 10 mL -- Dispensed Enteral Tube EVERY 12 HOURS 10/23/22 0845 11/09/22 1636 iopamidol (Isovue 370) 76 % contrast 11/11/22 1635 Dispensed IV CONTRAST ONCE 11/09/22 1636 10/20/22 1045 lansoprazole (Prevacid) suspension 30 mg -- Dispensed Enteral Tube DAILY BEFORE BREAKFAST 10/20/22 1032 10/21/22 0900 loratadine (Claritin) tablet 10 mg -- Dispensed Enteral Tube DAILY 10/20/22 1029 10/23/22 0900 metoprolol tartrate IR (Lopressor) tablet 25 mg Note to Pharmacy: OP sig: Take 1 (one) tablet by mouth 2 times daily -- Dispensed Enteral Tube EVERY 12 HOURS 10/23/22 0716 11/10/22 1300 metroNIDAZOLE (Flagyl) 500 mg in 100 mL IVPB -- Dispensed IV EVERY 8 HOURS 11/10/22 1215 11/01/22 1035 oxyCODONE (immediate release) (Roxicodone) tablet 5 mg -- Dispensed Enteral Tube EVERY 6 HOURS PRN 11/01/22 1036 11/06/22 1308 perflutren lipid microsphere (Definity) injection 0.5 mL -- Verified IV INTRA-PROCEDURE MULTIPLE 11/06/22 1309 11/08/22 2100 polyethylene glycol 3350 (Miralax) packet 17 g -- Dispensed Enteral Tube 2 TIMES DAILY 11/08/22 1823 11/10/22 0745 potassium chloride (Klor-Con) packet 20 mEq 11/10/22 0931 Completed Enteral Tube ONCE 11/10/22 0724 11/10/22 1920 propofol (Diprivan) injection -- Sent IV PRN 11/10/22 1923 11/10/22 1800 prothrombin complex human (Kcentra) injection 2,116 Units 11/10/22 1849 Completed IV ONCE 11/10/22 1748 11/10/22 1920 rocuronium (Zemuron) injection -- Sent IV PRN 11/10/22 1924 11/05/22 0900 senna-docusate (Senokot-S) tablet 2 tablet -- Dispensed Enteral Tube DAILY 11/05/22 0730 11/10/22 2040 sugammadex (Bridion) injection -- Sent IV PRN 11/10/22 2040 10/25/22 0900 tamsulosin (Flomax) capsule 0.4 mg -- Dispensed Enteral Tube DAILY 10/24/22 1421 11/08/22 1600 vancomycin (Vancocin) 1,500 mg in 500 mL NaCl IVPB Premix -- Dispensed IV EVERY 8 HOURS 11/08/22 1531 11/08/22 1518 vancomycin (Vancocin) IV dose per pharmacy 12/07/22 1417 Verified XX DIRECTED 11/08/22 1518 10/20/22 1515 verapamil (Isoptin) tablet 40 mg -- Dispensed Enteral Tube EVERY 8 HOURS 10/20/22 1513 10/21/22 0900 vitamin D3 (Cholecalciferol) 25 MCG (1000 UNITS) tablet 2,000 Units Note to Pharmacy: OP sig: Take 2,000 Units by mouth once daily -- Dispensed Enteral Tube DAILY 10/20/22 1029 Post-op Diagnosis: * 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 Allergies Allergen Reactions ??? 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: Patient Vitals for the past 3 hrs: BP Temp Pulse Resp SpO2 Pain Rating Score #1 11/10/22 1900 -- -- -- -- 94 % -- 11/10/22 1855 117/69 -- 105 21 91 % -- 11/10/22 1841 -- -- 102 18 95 % -- 11/10/22 1839 115/59 (!) 102 ??F (38.9 ??C) 105 20 -- 0 Lines, Drains, and Airways Type Details Placement Removal Enteral - 11/01/22; 1445 (Per GI note); PEG; Abdomen, Left, Upper; 24 (Per GI note) 11/01/22 1445 by Jessica Enriquez RN Peripheral IV Date: 11/07/22; Time: 152; Orientation: Left, Posterior; Location: Forearm; Placed By: AMBROSE Canchola; Gauge: 20 Gauge 11/07/22 1527 by Jesika Naranjo RN Peripheral IV Date: 11/10/22; Time: 184; Orientation: Left; Location: Antecubital; Placed By: Timoteo Stock RN; Gauge: 22 Gauge ; Tolerance: Well 11/10/22 184 by Haleigh Jain RN ETT Date: 11/10/22; Time: 1932; Placed By: Ashly Schaeffer MD; Vent: easy mask; Induction: Standard IV; Blade Type: Video; Blade Size: 3; Laryngoscopy View: Grade 1 (full cords); Intubation Adjuncts: Stylet; Tube: Endotracheal Tube; Placement: Oral; Tube Type: Cuffed-inflated; Tube Size(mm): 7 MM;Depth of Insertion: 22 CM; Measured From: lips; Attempts: 1; Cuff Infated: Air; Verified By: Directvisualization, Bilateral breath sounds, Chest Auscultation, CO2 Monitor 11/10/221932 by Fly Barton DO 11/10/222046 by Fly Barton DO Intraprocedure I/O Totals None Patient Transfer Location: PACU Transport Airway: supplemental O2 Transport Monitoring: heart rate and continuous pulse oximetry Complications: None Handoff Given? Yes Checklist or Protocol - The darden handoff [...] understanding of report from the receiving PACUteam. Fly Barton DO documented in this encounter Plan of Treatment Not on file documented as of this encounter Procedures Procedure Name Priority Date/Time Associated Diagnosis Comments ENDOTRACHEAL TUBE NOTE Routine 11/10/2022 7:32 PM CDT documented in this encounter Results * ETT LINE PERFORMABLE (11/10/2022 7:32 PM CDT) Narrative Fly Barton DO - 11/10/2022 7:32 PM CDT Fly Barton DO ? 11/10/2022 ??7:33 PM Endotracheal Tube Placement: ? Patient Location: OR. Procedure: intubation (44885). Procedure Section: ?? Sedation: IV sedation. Indications [...] Airway? ??No. Staff Section ? Anesthesia Provider: Aslhy Schaeffer MD ? Provider #1: Fly Barton DO, Performed the procedure. Ashly Schaeffer MD GENERAL ANESTHESIA O RDERABLES documented in this encounter Visit Diagnoses Not on filedocumented in this encounter Administered Medications Inactive Administered Medications - up to 3 most recent administrations Medication Order MAR Action Action Date Dose Rate Site dexAMETHasone Sod Phosphate PF injection Intravenous, PRN, Starting on Sun11/10/22 at 1930, Until Sun11/10/22 at 2056, Anesthesia Intra-op $ Given 11/10/2022 7:30 PM CDT 4 mg esmolol (Brevibloc) injection Intravenous, PRN, Starting on Sun11/10/22 at 5, Until Sun11/10/22 at 2056, Anesthesia Intra-op $ Given 11/10/2022 8:45 PM CDT 20 mg fentaNYL (PF) (Sublimaze) injection Intravenous, PRN, Starting on Sun11/10/22 at 1920, Until Sun11/10/22 at 2056, Anesthesia Intra-op $ Given 11/10/2022 8:24 PM CDT 100 mcg $ Given 11/10/2022 7:55 PM CDT 50 mcg $ Given 11/10/2022 7:20 PM CDT 50 mcg propofol (Diprivan) injection Intravenous, PRN, Starting on Sun11/10/22 at 1920, Until Sun11/10/22 at 2056, Anesthesia Intra-op $ Given 11/10/2022 7:20 PM CDT 120 mg rocuronium (Zemuron) injection Intravenous, PRN, Starting on Sun11/10/22 at 1920, Until Sun11/10/22 at 2056, Anesthesia Intra-op $ Given 11/10/2022 8:07 PM CDT 20 mg $ Given 11/10/2022 7:20 PM CDT 60 mg sugammadex (Bridion) injection Intravenous, PRN, Starting on Sun11/10/22 at 2040, Until Sun11/10/22 at 2057, Anesthesia Intra-op $ Given 11/10/2022 8:40 PM CDT 400 mg documented in this encounter Care Teams Pharmacy Picking Technician Relationship Specialty Start Date End Date Jean Joy MD PCP - OBGYN 12/27/07 Yvan Booth MD [address] [place] [phone] PCP - General 11/04/09 01/04/23 Jaden Thakur DO [address] [place] [address] [id number] PCP - Attributed-[facility] 09/10/19 06/28/23 documented as of this encounter
--- OUTSIDE RECORDS SUMMARY | 2024-03-19 20:40 | XMS_ITS | Encounter Summary ---
Author Organization [facility] Address [address] [facility] [place] [address] Care Team Providers Care Logistics Coordinator Name Role Phone Jean Joy MD Unavailable [phone] Yvan Booth MD Primary Care Provider [phone] Jaden Thakur DO Unavailable [phone] Reason for Visit * Reason Comments Altered [...] Referred By Jimena t Referred To Contact Referral ID Status Reason Start Date Expiration Date Visits Re quested Visits Authorized [id number] 1 1 Encounter Details Date Type Department Care Team (Late st Contact Info) Description 11/10/2022 7:20 PM CDT - 11/10/2022 10:05 PM CDT Surgery [facility] [address] [place] [address] Jacques Novoa DO [address] [facility] 2L DIV [place] [address] FREDRICK LOVE. EX-LAP LEVEL 3 @ 1500 Surgery Details Date/Time Status Location OR Service Patient Class Case Cl ass Case Type Trauma Case? 11/10/2022 7:20 PM Posted [facility] OR OR 11 General Inpatient Urgent < 6 Hrs Panel 1 Procedure LRB Anes Op Region Wound Class Comments EGD, POSS. EX-LAP LEVEL 3 @ 1500 N/A General Abdomen Dirty or Infected EGD with Gastropexy Surgeon Surgeon Role Service Panel Maicol Quiroz, DO Resident - Assisting General 1 Jacques Novoa, Primary General 1 documented in this encounter Social History Tobacco [...] Date Recorded Patient Health Questionnaire-2 Score 0 11/02/2022 [place] [facility] - Occupational Stress [...] Sign Reading Time Taken Comments Blood Pressure 118/65 11/10/2022 9:55 PM CDT Pulse 102 11/10/2022 9:55 PM CDT Temperature 37.4 ??C (99.4 ??F) 11/10/2022 8:55 PM CD T Respiratory Rate 19 11/10/2022 9:55 PM CDT Oxygen Saturation 93% 11/10/2022 9:55 PM CDT Inhaled Oxygen Concentration 30% 10/24/2022 2 [...] CDT Physician Discharge Summary Patient ID: Consuelo Darby [id number] 42 year old 1980 Admit date: 10/19/2022 [...] and patch angioplasty. 10/31: CT A/P obtained 2/ concern for abscess by GI team while [...] this admission: CBC: Recent Labs Lab Units 11/17/22 0202 11/16/22 0217 11/15/22 0212 11/14/22 0239 11/13/22 0210 WBC 10??3/uL 9.4 7.3 5.5 4.7 2.7* RBC 10??6/uL 3.57* 3.49* 3.51* 3.47* 3.36* HGB g/dL 10.4* 10.1* 10.0* 9.9* 9.8* HCT % 33.4* 32.6* 32.6* 32.8* 30.8* BMP: Recent Labs Lab Units 11/17/22 0202 11/16/22 0217 11/15/22 0212 11/14/22 0239 11/13/22 0210 NA mmol/L 138 139 137 140 138 CL mmol/L 99 104 103 104 107 CO2 mmol/L 27 27 26 25 23 BUN mg/dL 14 13 12 11 11 CREATININE mg/dL 0.62 0.57 0.50* 0.51* 0.54* CALCIUM mg/dL 8.9 8.8 8.6 8.6 8.1* Magnesium: No results for input(s): MG in the last 168 hours. Phosphorus: Recent Labs Lab Units 11/17/22 02011/16/2221611/15/2221111/14/2223811/13/22 0210 PHOS mg/dL 3.6 3.5 3.0 3.5 3.9 Coagulation: Recent Labs Lab Units 11/17/22 02011/16/22 0217 11/15/22 02111/14/22 02311/13/22 0210 PT Seconds 14.4 13.9 14.3 15.9* 17.7* INR 1.1 1.1 1.1 1.3 1.5 Endocrine: Recent Labs Lab Units 11/13/22 021 TSH uIU/mL 5.706* LFTs: Recent Labs Lab Units 11/17/2220111/15/2221111/14/22 023 AST U/L 138* 104* 158* ALT U/L [...] resolved. > Dictated by Abdifatah Jean MD (residential sales). Alexx Ornelas have personally reviewed and interpreted this examination/study. > Interpreting Provider: Alexx Lopez on 11/17/2022 11:31 AM FL LUMBAR PUNCTURE Result Date: 11/15/2022 IMPRESSION: 1.Successful lumbar puncture under fluoroscopic guidance at L3-L4. > Dictated by Royer Stovall MD (residential sales). Oriana Ornelas MD have personally reviewed and interpreted this examination/study. > Interpreting Provider: Oriana Suarez MD on 11/15/2022 2:16 PM US ABDOMEN LTD W COMP DOPPLER Result Date: 11/14/2022 IMPRESSION: 1.No discrete hepatic lesion or intrahepatic biliary ductal dilatation. 2.Patent hepatic vasculature. Borderline low velocity the main portal vein measuring 18 cm/s. 3.Status post cholecystectomy. > Dictated by Miranda Bowen MD (residential sales). > Dictated by Miranda Bowen (Refractory Furnace Designer) 11/14/2022 9:18 AM HEATHER Ornelas MD have [...] MD . Specialty: Neurological Surgery Contact information: [address] [place] [address] OF NEUROSURGERY [facility] [address] Contact information for after-discharge care Destination [facility] (ALL LOCATIONS) . Service: Inpatient Rehabilitation Contact information: [address] [place] [address] Discharge Instructions You have been scheduled with Dr. Wlater for follow up in regards to your stroke and hospital stay.If the time and/or day of this appointment doesn't work for you, please call [phone] to make changes. Continue Doxycycline and Meropenem [...] incision after showering. Call our office at [phone] for: Chills/fever/Temp greater than 101 degrees If your incision has drainage, swelling, redness, or if it opens. If your foot becomes cold, painful, you have problems moving it, or it changes color After hours number is [phone] and ask for vascular surgery Follow up in clinic with Dr Clay in 4 weeks with vascular studies prior to appt; you will be contacted regarding this To make or change an appt call [phone] Urology Follow-up You have a follow up appointment with Dottie Monreal NP on SundayDecember 06 at 9:45am. Thisis at the [facility], located at [address] [place] [address], [facility] [address]. The clinic number is [phone]. It is very important that you make [...] appointment doesn't work for you, please call [phone] to make changes. We may consider hypercoagulability [...] incision after showering. Call our office at [phone] for: Chills/fever/Temp greater than 101 degrees If your incision has drainage, swelling, redness, or if it opens. If your foot becomes cold, painful, you have problems moving it, or it changes color After hours number is [phone] and ask for vascular surgery Follow up in clinic with Dr Clay in 4 weeks with vascular studies prior to appt; you will be contacted regarding this To make or change an appt call [phone] Urology Follow-up You have a follow up appointment with Dottie Monreal NP on SundayDecember 06 at 9:45am. Thisis at the [facility], located at [address] [facility], [place] [address]. The clinic number is [phone]. It is very important that you make [...] 11/17/2022 12/26/2022 Vitamin D3, cholecalciferol, 50 MCG (1999 [place]) [...] PM CDT Report given to Katelyn at [facility]. * Anita Richards - 11/17/2022 12:50 PM CDT Facility Transfer Note Actual level of care at discharge: Acute Rehab Facility Discharge Facility Information: [facility] ([address] [place] [address]) [place] Made Aware of Special Needs (if applicable): JAMIE RN Call Report to: [phone] Fax D/C Orders to:[phone] Date/time of transfer: 11/17/2022 @ 2p Trip# [id number] Transportation: [facility] [phone] Certificate of Medical Necessity rationale: Rt middle [...] contact #: Dr. Frias Completed and Signed [id number] (if applicable): NA Family/Other Notified of Transfer (name/phone): Patient/spouse notified Authorization for Fpc Facility: ARU rec'd Authorization for Transportation: NA Verified Qualifying Stay(Skilled Only): NOT APPLICABLE Comments: SW faxed discharge to facility orders, after visit summary, and the MAR report to the accepting facility. Thank you, JAYLENE Holcomb, HUMERA [facility] 11/17/2022 12:50 PM * Elida Yancey RN - 11/17/2022 12:14 PM CDT [facility] has accepted this patient and she is in agreement to be transfered to acute rehab on the [facility] room 303. Patient and family updated at bedside. Room is ready. Accepting physician is Dr. Frias. May fax discharge orders to [phone]. May call report to [phone]. If needed, Kelp Gatherer can be reached at [phone]. Thank you for the referral. Elida Yancey RN, BSN Clinical Liaison [facility] [phone] * Chin Cabello RN - 11/17/2022 11:06 [...] Rehab Facility: Anticipated level of care provider: [facility]: Anticipated Discharge Date: 11/17/22: Discharge Plan: [facility] Rehab [facility] pending bed availability. Orientation Level: Oriented to Person;Oriented to Place;Oriented to Situation: Family Support (Name and Phone): Extended Emergency Contact Information Primary Emergency Contact: MehnazHi Address: [address] [place] [address] [place] [address] [facility] Relation: Spouse Secondary Emergency Contact: Sandra Disla [facility] Mobile Relation: Mother Transportation at Discharge: Ambulance: READMISSION RISK SCORE is 17 at 12:58 PM 11/17/2022.: Name: Maru Mcduffie, RN 6866 * Roderick Hernández, PharmD - 11/17/2022 9:47 AM CDT Warfarin per Pharmacy Protocol S/O Consuelo Darby 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 Adverse events related to anticoagulation: None Labs Recent Labs Component Name 11/17/2220111/16/2221611/15/22211 PT 14.4 13.9 14.3 INR 1.1 1.1 1.1 Recent Labs Component Name 11/17/22 02011/16/2221611/15/22211 PTT 34.4 26.0 28.2 Recent Labs Component Name 11/17/22 0202 11/16/2221611/15/22211 HGB 10.4* 10.1* 10.0* HCT 33.4* 32.6* 32.6* PLTCOUNT 505* 446* 404* Recent Labs Component Name 11/17/22 0202 06/15/22 0757 12/09/18 0812 ALBUMIN - - 4.5 ALT [...] 4. Warfarin education completed on 11/06 Roderick Hernández PharmD 11/17/2022 9:26 AM * Good Antunez MD [...] cerebritis or infections.LP not concerning, however. -- alfonzo PEG fluid collection: Improved on abx - [...] 98.2 ??F (36.8 ??C) 100 16 137/68 11/16/22 2026 97.2 ??F (36.2 ??C) 97 16 116/65 11/16/22 1737 97.2 ??F (36.2 ??C) 86 -- 109/66 11/16/22 1513 -- -- -- 114/54 11/16/22 1003 -- 91 -- 111/59 Recent Labs Component Name 11/17/22 0202 11/16/227 11/15/22 021 NA 138 139 137 CL 99 104 103 CO2 27 27 26 BUN 14 13 12 CREATININE 0.62 0.57 0.50* CALCIUM 8.9 8.8 8.6 PHOS 3.6 3.5 3.0 Recent Labs Component Name 11/17/22 0202 11/16/22 0217 11/15/22 0212 10/23/22 0129 10/22/22 0153 WBC 9.4 7.3 5.5 [...] 126 Recent Labs Component Name 11/17/22 0202 11/16/22 0217 11/15/22 0212 10/27/22202810/27/22 0054 PLTCOUNT 505* 446* 404* - 519* [...] arrival patient noted to janete Amy astorga, Amy hemainopsia, mild dysarthria, and extinction. NIHSS: 7. [...] bilaterally ?? Labs: Recent Labs Component Name 11/16/22 0217 11/15/22 0212 11/14/22 0239 10/23/22 0129 10/22/22 0153 WBC 7.3 5.5 4.7 - - RBC 3.49* 3.51* 3.47* - - HGB 10.1* 10.0* 9.9* - - HCT 32.6* 32.6* 32.8* - - PLT - - - - 199 - = values in this interval not displayed. Recent Labs Component Name 11/16/22 0217 11/15/222 11/14/22238 NA 139 137 140 CL 104 103 104 CO2 27 26 25 BUN 13 12 11 CREATININE 0.57 0.50* 0.51* CALCIUM 8.8 8.6 8.6 No results for input(s): MG in the last 44797 hours. Recent Labs Component Name 11/16/22 0217 11/15/222 11/14/22238 PHOS 3.5 3.0 3.5 Recent Labs Component Name 11/16/2221611/15/2221111/14/22238 PT 13.9 14.3 15.9* INR 1.1 1.1 1.3 PTT 26.0 28.2 45.9* No results for input(s): A1C in the last 28476 hours. Recent Labs Component Name 10/20/22 0302 [...] cholecystectomy. > Dictated by Miranda Bowen MD (residential sales). > Dictated by Miranda Bowen (Refractory Furnace Designer) 11/14/2022 9:18 AM IHEATHER MD have personally reviewed and interpreted this examination/study. > Interpreting Provider: HEATHER FREGOSO MD on 11/14/2022 9:54 AM XR CHEST 1VW PORTABLE Result Date: 11/13/2022 PROCEDURE: XR CHEST 1VW PORTABLE, DATE/TIME OF EXAM: 11/12/2022 8:45 PM, LOCATION [facility] INDICATION: R50.9: Fever, unspecified fever cause [...] abnormality. Report dictated by Agnes Olmos DO (residential sales). IPepe MD have p ersonally reviewed and interpreted this examination/study. > Interpreting Provider: Pepe Gonzalez MD on 11/13/2022 11:59 AM MRI BRAIN WWO CONTRAST Result Date: 11/10/2022 PROCEDURE: MRI BRAIN WWO CONTRAST, DATE/TIME OF EXAM: 11/09/2022 11:51 PM, LOCATION [facility] INDICATION: R50.9: Fever, unspecified fever [...] of the right lateral ventricle and the rilqm-qd-fbvo midline shift. Extensive susceptibility artifacts along the [...] DATE/TIME OF EXAM: 11/07/2022 5:25 PM, LOCATION [facility] INDICATION: R50.9: Fever, unspecified fever [...] chest. > Dictated by Tim Major MD (residential sales). IAlexx have personally reviewed and interpreted this [...] m-mode, color and spectralDoppler echocardiography. [facility] THROMBECT Result Date: 11/07/2022 PROCEDURE: [facility] THROMBECT DATE/TIME OF EXAM: 10/19/2022 10:41 AM [...] Time to Reperfusion: 9:54 Final TICI: 2b Rigging Engineer: Dr. Mitali Walter Liner Roll Changer(s): Isak Monte Vessels: Ultrasound Guided Access of Femoral Artery Ultrasound Guided Access of Radial Artery Arterial line placement in the right radial artery Right Common Carotid Artery Angiogram: Cerebral Intracranial Catheterization Mechanical Thrombectomy with Retrievable Stent and Reperfusion Catheter Angiography Through the Existing Catheter Right Femoral Artery Angiogram Anesthesia: General Anesthesia was performed and monitored by an attending Anesthesiologist and their social human services assistants throughout the entirety of the case Procedural [...] artery demonstrated a patent vessel. A 5 fijian sheath was placed in the radial artery [...] Following a series of exchanges, a 8 Georgian sheath sheath was placed in the right femoralartery. A Guide and a 6 Georgian Siterra Select Serrano 2 catheter along with a [...] system. Hemostasis was achieved using a 8 Georgian Angio-Seal closure device. Hemostasis was immediate at [...] DATE/TIME OF EXAM: 11/05/2022 5:28 PM, LOCATION [facility] INDICATION: R50.9: Fever, unspecified fever [...] pattern. Report dictated by Mc Castro MD, (residential sales). Pepe Ornelas MD have personally reviewed and [...] DATE/TIME OF EXAM: 11/05/2022 9:38 AM, LOCATION [facility] INDICATION: R50.9: Fever, unspecified fever cause ADDITIONAL CLINICAL INFORMATION: Ordering Provider Reason For Exam: consolidation COMPARISON: Chest radiograph 10/29/2022. FINDINGS/IMPRESSION: Previously seen feeding tube has been removed. These no confluent consolidation, pleural effusion, or pneumothorax is noted. The cardiomediastinal silhouette is stable. No acute osseous abnormality is noted. Report dictated by Christopher Tobin MD, (residential sales). IHEATHER MD have personally reviewed and interpreted this examination/study. > Interpreting Provider: HEATHER FREGOSO MD on 11/05/2022 2:[address] ABDOMEN WO CONTRAST Result Date: 11/02/2022 PROCEDURE: CT ABDOMEN WO CONTRAST, DATE/TIME OF EXAM: 2022 6:47 PM, LOCATION [facility] INDICATION: Z93.1: Presence of externally [...] queried.. > Dictated by Tim Major MD (residential sales). I, Pepe Gonzalez MD have personallyreviewed and interpreted this examination/study. > Interpreting Provider: Pepe Gonzalez MD on 11/02/2022 1:[address] ABDOMEN PELVIS W CONTRAST Result Date: 10/31/2022 PROCEDURE: CT ABDOMEN PELVIS W CONTRAST, DATE/TIME OF EXAM: 10/31/2022 10:16 AM, LOCATION [facility] INDICATION: I33.0: Aortic valve vegetation [...] DATE/TIME OF EXAM: 10/30/2022 8:22 PM, LOCATION: [facility] HISTORY: I63.511: Right middle cerebral artery stroke [...] frontal gyrus/frontal operculum, consistent with an evolving wseeluad-bv-srzljcj infarct. 4.No significant midline shift. Similar-appearing size and configuration of the ventricles without evidence of hydrocephalus. Basal cisterns are patent. 5.No other convincing change. Partially imaged left nasoenteric tube. > Interpreting Provider: Amanda Real MD, PhD on 10/31/2022 1:26 AM CO GLENN W ANGIO TEAM Result Date: 10/30/2022 Fluoroscopy was used for this exam in the OR. Please see the Operative report. XR CHEST 1VW PORTABLE Result Date: 10/29/2022 PROCEDURE: XR CHEST 1VW PORTABLE, DATE/TIME OF EXAM: 10/29/2022 10:29 AM, LOCATION [facility] INDICATION: R09.02: Hypoxia ADDITIONAL CLINICAL INFORMATION: Ordering Provider Reason For Exam: evaluate for hypoxia COMPARISON: Chest x-ray from 10/27/2022 FINDINGS/IMPRESSION: Enteric tube is seen coursing over the diaphragm without visualization of the distal tip. There is no focal consolidation, pleural effusion, or pneumothorax. The cardiomediastinal silhouette is normal. Report dictated by Jacques Russell DO (residential sales). I, Jacques Cole DO have personally reviewed and interpreted this examination/study. 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 Report dictated by Jacques Russell DO (residential sales). Jacques Ornelas DO have personally reviewed and interpreted this examination/study. 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 FINDINGS/IMPRESSION: Enteric tube courses below the diaphragm with the distal tip superimposing the antropyloric region. Report dictated by Martell Shetty MD (residential sales). Jacques Ornelas DO have personally reviewed and interpreted this examination/study. > Interpreting Provider: Jacques Cole DO on 10/28/2022 12:[address] HEAD WO CONTRAST Result Date: 10/28/2022 PROCEDURE: CT HEAD WO CONTRAST, DATE/TIME OF EXAM: 10/28/2022 5:28 AM, LOCATION [facility] INDICATION: Z91.89: At high risk for bleeding [...] report is dictated by Kayla Stevenson MD (residential sales) 1 I, Lonnie Rae MD have personally reviewed and interpreted this examination/study. > Interpreting Provider: Lonnie Rae MD on 10/28/2022 9:15 AM XR CHEST 1VW PORTABLE Result Date: 10/27/2022 PROCEDURE: XR CHEST 1VW PORTABLE, DATE/TIME OF EXAM: 10/27/2022 10:19 AM, LOCATION [facility] INDICATION: D72.829: Leukocytosis, unspecified type ADDITIONAL CLINICAL INFORMATION: Ordering Provider Reason For Exam: any concern for pneumonia COMPARISON: Chest radiograph dated 10/25/2022. FINDINGS/IMPRESSION: Enteric tube courses below the diaphragm and out of the lhsmv-gc-bjlh. RUQ surgical clips are present. No focal consolidation. No pleural effusion or pneumothorax. The cardiomediastinal silhouette is normal. Report dictated by Agnes Olmos DO (residential sales). Pepe Ornelas MD have personally reviewed and interpreted this examination/study. 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 Enteric tube courses below the diaphragm and out of the snhvs-tq-gxsr. There is severe left rotation of the patient in this study. There is no focal consolidation, pleural effusion, or pneumothorax. The left upper lobe pulmonary nodule noted on chest CT from same day is not visualized on this plain film. The cardiomediastinal silhouette is normal. The visible bony thorax is intact. Report dictated by Royer Stovall MD (residential sales). I, Alexx Lopez have personally reviewed and interpreted this examination/study. > Interpreting Provider: Alexx Lopez on 10/26/2022 2:[address] HEAD WO CONTRAST Result Date: 10/26/2022 PROCEDURE: CT HEAD WO CONTRAST, DATE/TIME OF EXAM: 10/26/2022 4:55 AM, LOCATION [facility] INDICATION: I63.511: Right middle cerebral [...] report is dictated by Miranda Bowen MD (residential sales) I, Oriana Suarez MD have personally reviewed and interpreted this examination/study. > Interpreting Provider: Oriana Suarez MD on 38:[address] CHEST ABDOMEN PELVIS W CONT Result Date: 10/25/2022 PROCEDURE: CT CHEST ABDOMEN PELVIS W CONT, DATE/TIME OF EXAM: 10/25/2022 12:56 PM, LOCATION [facility] INDICATION: I63.511: Right middle cerebral artery [...] verification. > Dictated by Clarisa Cantrell MD (residential sales). I, Alexx Lopez have personally reviewed and interpreted this examination/study. > Interpreting Provider: Alexx Lopez on 10/25/2022 4:[address] HEAD WO CONTRAST Result Date: 10/25/2022 PROCEDURE: CT HEAD WO CONTRAST, DATE/TIME OF EXAM: 10/25/2022 12:56 PM, LOCATION [facility] INDICATION: I63.511: Right middle cerebral artery [...] report is dictated by Miranda Bowen MD (residential sales) I, Joni Fabian MD have personally reviewed and interpreted this examination/study. > Interpreting Provider: Joni Fabian MD on 10/25/2022 2:[address] CARDIAC ANGIO STRUCT MORPH Result Date: 10/25/2022 PROCEDURE: CT CARDIAC ANGIO STRUCT MORPH, DATE/TIME OF EXAM: 10/23/2022 3:08 PM, LOCATION [facility] INDICATION: I63.411: Acute cerebrovascular accident [...] DATE/TIME OF EXAM: 10/24/2022 2:04 PM, LOCATION [facility] INDICATION: R47.1: Dysarthria ADDITIONAL CLINICAL INFORMATION: Ordering Provider Reason For Exam: ngt placement COMPARISON: Portable KUB dated 10/23/2022 FINDINGS/IMPRESSION: The enteric tube courses below the diaphragm with tip superimposing the gastric pyloric region. Drafted by Taryn RUBIN (residential sales). I, Vanessa Kumar MD have personally reviewed and interpreted this examination/study. > Interpreting Provider: Vanessa Kumar MD on 10/24/2022 2:17 PM MRI BRAIN WWO CONTRAST Result Date: 10/24/2022 PROCEDURE: MRI BRAIN WWO CONTRAST, DATE/TIME OF EXAM: 10/24/2022 10:56 AM, LOCATION [facility] INDICATION: I63.411: Acute cerebrovascular accident [...] right lateral ventricle, and approximately 3-4 mm dqvyd-zk-wfap midline shift at the level of the [...] right lateral ventricle, and approximately 3-4 mm uikdw-yy-zyhw midline shift, grossly similar to the prior. [...] verification. Report dictated by Tim Major MD (residential sales). Jasper Ornelas MD have personally reviewed and interpreted this examination/study. > Interpreting Provider: Jasper Sifuentes MD on 10/24/2022 1:59 PM XR CHEST 1VW PORTABLE Result Date: 10/24/2022 PROCEDURE: XR CHEST 1VW PORTABLE, DATE/TIME OF EXAM: 10/23/2022 8:24 AM, LOCATION [facility] INDICATION: I63.511: Right middle cerebral artery stroke (CMS/HCC) ADDITIONAL CLINICAL INFORMATION: Ordering Provider Reason For Exam: OETT position COMPARISON: Chest radiograph dated 10/21/2022 FINDINGS/IMPRESSION: The enteric tube courses below the diaphragm out of the inferior ksyad-zu-gnau. Endotracheal tube terminates in the midthoracic trachea. There is no focal consolidation. No pleural effusion or pneumothorax. The cardiomediastinal silhouette is normal. No acute osseous abnormality. Report dictated by Agnes Olmos DO (residential sales). Vanessa Ornelas MD have personally reviewed and [...] DATE/TIME OF EXAM: 10/23/2022 1:53 PM, LOCATION [facility] INDICATION: R47.1: Dysarthria ADDITIONAL CLINICAL INFORMATION: Ordering Provider ReasonFor Exam: NGT placement COMPARISON: Portable KUB dated 10/20/2022 FINDINGS/IMPRESSION: The enteric tube courses below the diaphragm with tip superimposing the stomach. Drafted by Agnes Olmos DO (residential sales). I, Vanesas Kumar MD have personally reviewed and interpreted this examination/study. > Interpreting Provider: Vanessa Kumar MD on 10/24/2022 8:[address] HEAD WO CONTRAST Result Date: 10/23/2022 PROCEDURE: CT HEAD WO CONTRAST, DATE/TIME OF EXAM: 10/23/2022 5:53 AM, LOCATION [facility] INDICATION: I63.511: Right middle cerebral [...] The report is dictated by Miranda Bowen MD(residential sales) I, Jasper Sifuentes MD have personally reviewed and interpreted this examination/study. > Interpreting Provider: Jasper Sifuentes MD on 10/23/2022 9:[address] HEAD WO CONTRAST Result Date: 10/22/2022 PROCEDURE: CT HEAD WO CONTRAST, DATE/TIME OF EXAM: 10/22/2022 5:35 AM, LOCATION [facility] INDICATION: I63.511: Right middle cerebral [...] hemorrhage. Report dictated by Lorenzo Horta MD (residential sales). ILonnie MD have personally reviewed and interpreted this examination/study. > Interpreting Provider: Lonnie Rae MD on 10/22/2022 3:10 PM XR CHEST 1VW PORTABLE Result Date: 10/21/2022 PROCEDURE: XR CHEST 1VW PORTABLE, DATE/TIME OF EXAM: 10/21/2022 8:53 AM, LOCATION [facility] INDICATION: R53.1: Weakness ADDITIONAL CLINICAL INFORMATION: Ordering [...] Report dictated by Christopher Tobin MD, MD (residential sales). 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 > Dictated by Bassam Jovel M.D. (residential sales) Gonzalez Ornelas MD have personally reviewed and [...] body. Report dictated by Royer Stovall MD (residential sales). Amanda Ornelas MD have personally reviewed and [...] DATE/TIME OF EXAM: 10/19/2022 8:16 AM, LOCATION [facility] INDICATION: Code Stroke ADDITIONAL CLINICAL [...] DATE/TIME OF EXAM: 10/19/2022 8:04 AM, LOCATION [facility] INDICATION: Code Stroke ADDITIONAL CLINICAL [...] prefers location for rehab Discharge Facility Information: [facility] ([address] [place] [address]) SW notified [facility] Wax EngraverElida to begin insurance auth Insurance authorization is required for post acute care needs Payer/Plan Subscriber Name Rel Member # Group # [employer] [facility] [employer]* CONSUELO DARBY [id number] [address] [id number] Anticipated level of care at discharge: Acute Rehab Facility: Anticipated level of care provider: [facility]: Anticipated Discharge Date: 11/17/22: Orientation Level: Oriented to Person;Oriented to Place;Oriented to Time: Family Support (Name and Phone): Extended Emergency Contact Information Primary Emergency Contact: PjlubnaHi Address: [address] [place] [address] [place] [address] [facility] Relation: Spouse Secondary Emergency Contact: Sandra Disla [facility] [employer] Relation: Mother Transportation at Discharge: Ambulance: READMISSION RISK SCORE is 16 at 3:39 PM 11/16/2022.: Name: Anita Richards * Jerry Leigh SLP - 11/16/2022 1:30 PM CDT [facility] Language Evaluation and Swallow Therapy Patient: Consuelo Darby Med Record Number: [id number] Date of : 1980 Age: [age] year old PPE: n95, gloves Impressions: Patient's speech and language assessed via the WAB. Patient demonstrated a mild expressive language deficit, with halting speech and slow processing. Patient completed PO trial of multiple ice chips and attempted to drink from the straw but was unable to achieve adequate suction. MULTI SITE LEASING CONSULTANT utilized straw as a pipette and patient [...] assessing the following: ??? Spontaneous Speech/ Content: 09/18 ??? Fluency: 07/19 ??? Auditory Verbal Comprehension/Yes/No [...] to demonstrate gains in problem solving/abstract reasoning. Conveyor Operator Goals: Patient to be independent/baseline with speech/language/cognitive/swallowing to beable to safely discharge to prior level of care. If patient is discharged from the facility, this note serves as a discharge note if further speech therapy visits did not occur. Jerry Valle M.A., [facility]MULTI SITE LEASING CONSULTANT Speech Language Pathologist [phone] * Shania Troy, OT - 11/16/2022 12:[address] 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 LDA: PIV, PEG, puentes catheter Mental Status/Cognition: [...] ACTIVITY TOLERANCE: Patient's activity tolerance: fair Modified Wetmore: Current Modified Wetmore Score: 5 AM-PAC 6 Clicks Daily Activity [...] with good endurance and with minimal pain Jail Goal(s): Patient to discharge to appropriate next [...] cerebritis or infections. ID recommends LP. -- alfonzo PEG fluid collection: Discussing with IR. - Urology replaced curtis (11/09-) Problem List Right middle cerebral artery [...] 88 16 107/52 Recent Labs Component Name 11/16/2221611/15/2221111/14/22 023 NA 139 137 140 CL 104 103 104 CO2 27 26 25 BUN 13 12 11 CREATININE 0.57 0.50* 0.51* CALCIUM 8.8 8.6 8.6 PHOS 3.5 3.0 3.5 Recent Labs Component Name 11/16/2221611/15/2221111/14/22 0239 10/23/22 0129 10/22/22 0153 WBC 7.3 [...] 6.0* EAG 126 Recent Labs Component Name 11/16/2221611/15/22 0212 11/14/22 0239 10/27/22 2029 10/27/22 0054 PLTCOUNT 446* 404* 364 - 519* [...] cerebritis or infections. ID recommends LP. -- alfonzo PEG fluid collection: Discussing with IR. - [...] 91 -- 107/63 Recent Labs Component Name 11/15/2221111/14/2223811/13/22 021 NA 137 140 138 CL 103 104 107 CO2 26 25 23 BUN 12 11 11 CREATININE 0.50* 0.51* 0.54* CALCIUM 8.6 8.6 8.1* PHOS 3.0 3.5 3.9 Recent Labs Component Name 11/15/2221111/14/2223811/13/2220910/23/22 0129 10/22/22 0153 WBC 5.5 4.7 2.7* [...] follow up tomorrow. chaplain Cici Ascom [phone] at home independent call center agent [phone] * Shania Troy OT - 11/15/2022 10:52 AM CDT [facility] Department of Physical Medicine & Rehabilitation Progress Note Patient: Consuelo Darby Med Record Number: [id number] Date of : 1980 Age: [age] year old 11/15/22 1146 Missed Visit Missed Visit Procedure Off Floor Pt off the floor for LP at time of OT attempt. OT will continue to follow and attempt treatment session at a later time/date as appropriate. * Rosa Vegas, PT - 11/15/2022 10:40 AM CDT [facility] Department of Physical Medicine & Rehabilitation Progress Note Patient: Consuelo Darby Med Record Number: [id number] Date of : 1980 Age: [age] year [...] bilaterally ?? Labs: Recent Labs Component Name 11/15/2221111/14/2223811/13/2220910/23/22 0129 10/22/22 0153 WBC 5.5 4.7 2.7* - - RBC 3.51* 3.47* 3.36* - - HGB 10.0* 9.9* 9.8* - - HCT 32.6* 32.8* 30.8* - - PLT - - - - 199 - = values in this interval not displayed. Recent Labs Component Name 11/15/2221111/14/2223811/13/22209 NA 137 140 138 CL 103 104 107 CO2 26 25 23 BUN 12 11 11 CREATININE 0.50* 0.51* 0.54* CALCIUM 8.6 8.6 8.1* No results for input(s): MG in the last 65113 hours. Recent Labs Component Name 11/15/2221111/14/2223811/13/22209 PHOS 3.0 3.5 3.9 Recent Labs Component Name 11/15/2221111/14/2223811/13/22209 PT 14.3 15.9* 17.7* INR 1.1 1.3 1.5 PTT 28.2 45.9* 47.9* No results for input(s): A1C in the last 90582 hours. Recent Labs Component Name 10/20/22 0302 [...] cholecystectomy. > Dictated by Miranda Bowen MD (residential sales). > Dictated by Miranda Bowen (Refractory Furnace Designer) 11/14/2022 9:18 AM IHEATHER MD have personally reviewed and interpreted this examination/study. > Interpreting Provider: HEATHER FREGOSO MD on 11/14/2022 9:54 AM XR CHEST 1VW PORTABLE Result Date: 11/13/2022 PROCEDURE: XR CHEST 1VW PORTABLE, DATE/TIME OF EXAM: 11/12/2022 8:45 PM, LOCATION [facility] INDICATION: R50.9: Fever, unspecified fever cause [...] abnormality. Report dictated by Agnes Olmos DO (residential sales). I, Pepe Gonzalez MD have p ersonally reviewed and interpreted this examination/study. > Interpreting Provider: Pepe Gonzalez MD on 11/13/2022 11:59 AM MRI BRAIN WWO CONTRAST Result Date: 11/10/2022 PROCEDURE: MRI BRAIN WWO CONTRAST, DATE/TIME OF EXAM: 11/09/2022 11:51 PM, LOCATION [facility] INDICATION: R50.9: Fever, unspecified fever [...] of the right lateral ventricle and the nsdnr-nv-sahi midline shift. Extensive susceptibility artifacts along the [...] DATE/TIME OF EXAM: 11/07/2022 5:25 PM, LOCATION [facility] INDICATION: R50.9: Fever, unspecified fever [...] chest. > Dictated by Tim Major MD (residential sales). I, Alexx Renemily have personally reviewed and interpreted this examination/study. [...] Time to Reperfusion: 9:54 Final TICI: 2b Rigging Engineer: Dr. Mitali Walter Liner Roll Changer(s): Isak Monte Vessels: Ultrasound Guided Access of Femoral Artery Ultrasound Guided Access of Radial Artery Arterial line placement in the right radial artery Right Common Carotid Artery Angiogram: Cerebral Intracranial Catheterization Mechanical Thrombectomy with Retrievable Stent and Reperfusion Catheter Angiography Through the Existing Catheter Right Femoral Artery Angiogram Anesthesia: General Anesthesia was performed and monitored by an attending Anesthesiologist and their social human services assistants throughout the entirety of the case Procedural [...] artery demonstrated a patent vessel. A 5 fijian sheath was placed in the radial artery [...] Following a series of exchanges, a 8 Georgian sheath sheath was placed in the right femoralartery. A Guide and a 6 Georgian Penumbra Select Serrano 2 catheter along with [...] system. Hemostasis was achieved using a 8 Georgian Angio-Seal closure device. Hemostasis was immediate at [...] DATE/TIME OF EXAM: 11/05/2022 5:28 PM, LOCATION [facility] INDICATION: R50.9: Fever, unspecified fever [...] pattern. Report dictated by Mc Castro MD, (residential sales). I, Pepe Gonzalez MD have personally reviewed [...] DATE/TIME OF EXAM: 11/05/2022 9:38 AM, LOCATION [facility] INDICATION: R50.9: Fever, unspecified fever cause ADDITIONAL CLINICAL INFORMATION: Ordering Provider Reason For Exam: consolidation COMPARISON: Chest radiograph 10/29/2022. FINDINGS/IMPRESSION: Previously seen feeding tube has been removed. These no confluent consolidation, pleural effusion, or pneumothorax is noted. The cardiomediastinal silhouette is stable. No acute osseous abnormality is noted. Report dictated by Christopher Tobin MD, MD (residential sales). I, HEATHER FREGOSO MD have personally reviewed and interpreted this examination/study. > Interpreting Provider: HEATHER FREGOSO MD on 11/05/2022 2:[address] ABDOMEN WO CONTRAST Result Date: 11/02/2022 PROCEDURE: CT ABDOMEN WO CONTRAST, DATE/TIME OF EXAM: 2022 6:47 PM, LOCATION [facility] INDICATION: Z93.1: Presence of externally [...] queried.. > Dictated by Tim Major MD (residential sales). I, Pepe Gonzalez MD have personallyreviewed and interpreted this examination/study. > Interpreting Provider: Pepe Gonzalez MD on 11/02/2022 1:[address] ABDOMEN PELVIS W CONTRAST Result Date: 10/31/2022 PROCEDURE: CT ABDOMEN PELVIS W CONTRAST, DATE/TIME OF EXAM: 10/31/2022 10:16 AM, LOCATION [facility] INDICATION: I33.0: Aortic valve vegetation [...] DATE/TIME OF EXAM: 10/30/2022 8:22 PM, LOCATION: [facility] HISTORY: I63.511: Right middle cerebral artery stroke [...] frontal gyrus/frontal operculum, consistent with an evolving fsqpuodl-em-xxpuxlh infarct. 4.No significant midline shift. Similar-appearing size and configuration of the ventricles without evidence of hydrocephalus. Basal cisterns are patent. 5.No other convincing change. Partially imaged left nasoenteric tube. > Interpreting Provider: Amanda Real MD, PhD on 10/31/2022 1:26 AM [place] [facility] W ANGIO TEAM Result Date: 10/30/2022 Fluoroscopy was used for this exam in the OR. Please see the Operative report. XR CHEST 1VW PORTABLE Result Date: 10/29/2022 PROCEDURE: XR CHEST 1VW PORTABLE, DATE/TIME OF EXAM: 10/29/2022 10:29 AM, LOCATION [facility] INDICATION: R09.02: Hypoxia ADDITIONAL CLINICAL INFORMATION: Ordering Provider Reason For Exam: evaluate for hypoxia COMPARISON: Chest x-ray from 10/27/2022 FINDINGS/IMPRESSION: Enteric tube is seen coursing over the diaphragm without visualization of the distal tip. There is no focal consolidation, pleural effusion, or pneumothorax. The cardiomediastinal silhouette is normal. Report dictated by Jacques Russell DO (residential sales). Jacques Ornelas DO have personally reviewed and interpreted this examination/study. 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 Report dictated by Jacques Russell DO (residential sales). Jacques Ornelas DO have personally reviewed and interpreted this examination/study. 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 FINDINGS/IMPRESSION: Enteric tube courses below the diaphragm with the distal tip superimposing the antropyloric region. Report dictated by Martell Shetty MD (residential sales). Jacques Ornelas DO have personally reviewed and interpreted this examination/study. > Interpreting Provider: Jacqueslucila Cole, on 10/28/2022 12:[address] HEAD WO CONTRAST Result Date: 10/28/2022 PROCEDURE: CT HEAD WO CONTRAST, DATE/TIME OF EXAM: 10/28/2022 5:28 AM, LOCATION [facility] INDICATION: Z91.89: At high risk for bleeding [...] report is dictated by Kayla Stevenson MD (residential sales) 1 I, Lonnie Rae MD have personally reviewed and interpreted this examination/study. > Interpreting Provider: Lonnie Rae MD on 10/28/2022 9:15 AM XR CHEST 1VW PORTABLE Result Date: 10/27/2022 PROCEDURE: XR CHEST 1VW PORTABLE, DATE/TIME OF EXAM: 10/27/2022 10:19 AM, LOCATION [facility] INDICATION: D72.829: Leukocytosis, unspecified type ADDITIONAL CLINICAL INFORMATION: Ordering Provider Reason For Exam: any concern for pneumonia COMPARISON: Chest radiograph dated 10/25/2022. FINDINGS/IMPRESSION: Enteric tube courses below the diaphragm and out of the obpag-sb-idhk. RUQ surgical clips are present. No focal consolidation. No pleural effusion or pneumothorax. The cardiomediastinal silhouette is normal. Report dictated by Agnes Olmos DO (residential sales). I, Pepe Gonzalez MD have personally reviewed and interpreted this examination/study. > Interpreting Provider: Pepe Gonzalez MD on 10/27/2022 2:[address] HEAD WO CONTRAST Result Date: 10/27/2022 PROCEDURE: CT HEAD WO CONTRAST, DATE/TIME OF EXAM: 10/27/2022 5:54 AM, LOCATION [facility] INDICATION: I63.511: Right middle cerebral [...] DATE/TIME OF EXAM: 10/25/2022 9:41 AM, LOCATION [facility] INDICATION: I63.511: Right middle cerebral artery stroke ([facility]/HCC) ADDITIONAL CLINICAL INFORMATION: Ordering Provider Reason For Exam: Atlectasis/mucus plugging Comparison: Chest x-ray from10/23/2022, and CT chest, abdomen, pelvis from same day FINDINGS/IMPRESSION: Interval removal of theendotracheal tube. Enteric tube courses below the diaphragm and out of the mccdu-zu-eyak. There is severe left rotation of the patient in this study. There is no focal consolidation, pleural effusion, or pneumothorax. The left upper lobe pulmonary nodule noted on chest CT from same day is not visualized on this plain film. The cardiomediastinal silhouette is normal. The visible bony thorax is intact. Report dictated by Royer Stovall MD (residential sales). I, Alexx Lopez have personally reviewed and interpreted this examination/study. > Interpreting Provider: Alexx Lopez on 10/26/2022 2:[address] HEAD WO CONTRAST Result Date: 10/26/2022 PROCEDURE: CT HEAD WO CONTRAST, DATE/TIME OF EXAM: 10/26/2022 4:55 AM, LOCATION [facility] INDICATION: I63.511: Right middle cerebral artery stroke ([facility]/HCC) ADDITIONAL CLINICAL INFORMATION: Ordering Provider Reason For [...] report is dictated by Miranda Bowen MD (residential sales) I, Oriana Suarez MD have personally reviewed and interpreted this examination/study. > Interpreting Provider: Oriana Suarez MD on 38:[address] CHEST ABDOMEN PELVIS W CONT Result Date: 10/25/2022 PROCEDURE: CT CHEST ABDOMEN PELVIS W CONT, DATE/TIME OF EXAM: 10/25/2022 12:56 PM, LOCATION [facility] INDICATION: I63.511: Right middle cerebral artery [...] verification. > Dictated by Clarisa Cantrell MD (residential sales). I, Alexx Lopez have personally reviewed and interpreted this examination/study. > Interpreting Provider: Alexx Lopez on 10/25/2022 4:[address] HEAD WO CONTRAST Result Date: 10/25/2022 PROCEDURE: CT HEAD WO CONTRAST, DATE/TIME OF EXAM: 10/25/2022 12:56 PM, LOCATION [facility] INDICATION: I63.511: Right middle cerebral artery [...] report is dictated by Miranda Bowen MD (residential sales) I, Joni Fabian MD have personally reviewed and interpreted this examination/study. > Interpreting Provider: Joni Fabian MD on 10/25/2022 2:[address] CARDIAC ANGIO STRUCT MORPH Result Date: 10/25/2022 PROCEDURE: CT CARDIAC ANGIO STRUCT MORPH, DATE/TIME OF EXAM: 10/23/2022 3:08 PM, LOCATION [facility] INDICATION: I63.411: Acute cerebrovascular accident [...] DATE/TIME OF EXAM: 10/24/2022 2:04 PM, LOCATION [facility] INDICATION: R47.1: Dysarthria ADDITIONAL CLINICAL INFORMATION: Ordering Provider ReasonFor Exam: ngt placement COMPARISON: Portable KUB dated 10/23/2022 FINDINGS/IMPRESSION: The enteric tube courses below the diaphragm with tip superimposing the gastric pyloric region. Drafted by Agnes Olmos DO (residential sales). I, Vanessa Kumar MD have personally reviewed and interpreted this examination/study. > Interpreting Provider: Vanessa Kumar MD on 10/24/2022 2:17 PM MRI BRAIN WWO CONTRAST Result Date: 10/24/2022 PROCEDURE: MRI BRAIN WWO CONTRAST, DATE/TIME OF EXAM: 10/24/2022 10:56 AM, LOCATION [facility] INDICATION: I63.411: Acute cerebrovascular accident [...] right lateral ventricle, and approximately 3-4 mm bxmuw-ap-vmvf midline shift at the level of the [...] right lateral ventricle, and approximately 3-4 mm rcsdi-ec-togn midline shift, grossly similar to the prior. [...] verification. Report dictated by Tim Major MD (residential sales). I, Jasper Sifuentes MD have personally reviewed and interpreted this examination/study. > Interpreting Provider: Jasper Sifuentes MD on 10/24/2022 1:59 PM XR CHEST 1VW PORTABLE Result Date: 10/24/2022 PROCEDURE: XR CHEST 1VW PORTABLE, DATE/TIME OF EXAM: 10/23/2022 8:24 AM, LOCATION [facility] INDICATION: I63.511: Right middle cerebral artery stroke (CMS/HCC) ADDITIONAL CLINICAL INFORMATION: Ordering Provider Reason For Exam: OETT position COMPARISON: Chest radiograph dated 10/21/2022 FINDINGS/IMPRESSION: The enteric tube courses below the diaphragm out of the inferior urleo-rm-rmzl. Endotracheal tube terminates in the midthoracic trachea. There is no focal consolidation. No pleural effusion or pneumothorax. The cardiomediastinal silhouette is normal. No acute osseous abnormality. Report dictated by Agnes Olmos DO (residential sales). Vanessa Ornelas MD have personally reviewed and [...] DATE/TIME OF EXAM: 10/23/2022 1:53 PM, LOCATION [facility] INDICATION: R47.1: Dysarthria ADDITIONAL CLINICAL INFORMATION: Ordering Provider ReasonFor Exam: NGT placement COMPARISON: Portable KUB dated 10/20/2022 FINDINGS/IMPRESSION: The enteric tube courses below the diaphragm with tip superimposing the stomach. Drafted by Agnes Olmos DO (residential sales). Vanessa Ornelas MD have personally reviewed and interpreted this examination/study. > Interpreting Provider: Vanessa Kumar MD on 10/24/2022 8:[address] HEAD WO CONTRAST Result Date: 10/23/2022 PROCEDURE: CT HEAD WO CONTRAST, DATE/TIME OF EXAM: 10/23/2022 5:53 AM, LOCATION [facility] INDICATION: I63.511: Right middle cerebral [...] The report is dictated by Miranda Bowen MD(residential sales) I, Jasper Sifuentes MD have personally reviewed and interpreted this examination/study. > Interpreting Provider: Jasper Sifuentes MD on 10/23/2022 9:[address] HEAD WO CONTRAST Result Date: 10/22/2022 PROCEDURE: CT HEAD WO CONTRAST, DATE/TIME OF EXAM: 10/22/2022 5:35 AM, LOCATION [facility] INDICATION: I63.511: Right middle cerebral [...] hemorrhage. Report dictated by Lorenzo Horta MD (residential sales). Lonnie Ornelas MD have personally reviewed and interpreted this examination/study. > Interpreting Provider: Lonnie Rae MD on 10/22/2022 3:10 PM XR CHEST 1VW PORTABLE Result Date: 10/21/2022 PROCEDURE: XR CHEST 1VW PORTABLE, DATE/TIME OF EXAM: 10/21/2022 8:53 AM, LOCATION [facility] INDICATION: R53.1: Weakness ADDITIONAL CLINICAL INFORMATION: Ordering [...] Report dictated by Christopher Tobin MD, MD (residential sales). HEATHER Ornelas MD have personally reviewed and [...] DATE/TIME OF EXAM: 10/20/2022 9:13 PM, LOCATION [facility] INDICATION: I63.411: Acute cerebrovascular accident (CVA) due to embolism of right middle cerebral artery (CMS/HCC) ADDITIONAL CLINICAL INFORMATION: Ordering Provider Reason For Exam: [facility] COMPARISON: Multiple prior studies, most recently CT [...] effacement, effacement of theright lateral ventricle, and znuab-fc-pgir midline shift measuring up to 4 mm [...] prior. > Dictated by Bassam Jovel M.D. (residential sales) IGonzalez MD have personally reviewed and interpreted [...] body. Report dictated by Royer Stovall MD (residential sales). I, Amanda Prieto MD have personally reviewed [...] DATE/TIME OF EXAM: 10/19/2022 8:16 AM, LOCATION [facility] INDICATION: Code Stroke ADDITIONAL CLINICAL [...] DATE/TIME OF EXAM: 10/19/2022 8:04 AM, LOCATION [facility] INDICATION: Code Stroke ADDITIONAL CLINICAL [...] Yes) Hepatocellular injury (POA: No) Assessment Consuelo R Mehnaz??is a 41 year [...] stable or improving Outcome: Progressing * Shania Troy, OT - 11/14/2022 3:[address] 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 LDA: PIV, PEG, puentes [...] TOLERANCE: Patient's activity tolerance: fair minus Modified Wetmore: Current Modified Maryann Score: 5 AM-PAC 6 [...] with good endurance and with minimal pain Conveyor Operator Goal(s): Patient to discharge to appropriate next [...] within reach, with family in room, with RNRadha, with therapy cues visible on white board. * Jerry Leigh SLP - 11/14/2022 3:[address] [facility] Physical Medicine and Rehabilitation Swallow and Speech Treatment Patient: Consuelo [facility] Record Number: [id number] Date of : 1980 Age: [age] year [...] Impression - Pharyngeal: Moderate Treatment/Education/Interventions: While performing MULTI SITE LEASING CONSULTANT, Patient and sister was instructed in: goals [...] precautions., Patient will follow recommended swallowing strategies. Jail Goal (s): Patient to be independent/baseline with functional mobility and self care and be able to safely discharge to prior level of care. Jerry Valle M.A., CCC-MULTI SITE LEASING CONSULTANT Speech Language Pathologist [phone] * Solomon Brush DO - 11/14/2022 1:34 PM CDT [facility] Patient: Consuelo Darby Age: [age] year old Date of : 1980 Date of Admission: 10/19/2022 Date: 11/14/2022 Reason for consult: elevated liver enzymes Consult team: Neuro stroke HISTORY: I saw . Consuelo Darby in consultation at [facility] on 11/14/2022 for evaluation of her elevated [...] REVIEWED: LABS: CBC: Recent Labs Component Name 11/14/22 0239 11/13/22 0210 11/12/22 0532 10/23/22 0129 10/22/22 0153 WBC 4.7 2.7* 4.8 - - HGB 9.9* 9.8* 9.4* - - HCT 32.8* 30.8* 30.2* - - MCV 94.5 91.7 92.4 - - PLT - - - - 199 - = values in this interval not displayed. Coagulation Panel: Recent Labs Component Name 11/14/2223811/13/22 0210 11/12/22 0532 PT 15.9* 17.7* 22.1* INR 1.3 1.5 2.0 PTT 45.9* 47.9* 102.7* BMP: Recent Labs Component Name 11/14/2223811/13/22 0210 11/12/22 0532 NA 140 138 136 CL 104 107 105 CO2 25 21* BUN 11 11 13 CREATININE 0.51* 0.54* 0.59 CALCIUM 8.6 8.1* 7.8* Recent Labs Component Name 11/14/2223811/13/22 02111/12/22 0532 MAGNESIUM 2.0 2.2 1.7 Recent Labs Component Name 11/14/2223811/13/22 0210 11/12/22 0532 PHOS 3.5 3.9 2.5* Hepatic Panel: Recent Labs Component Name 11/14/2223811/13/22 0210 11/12/22 0532 AST 158* 195* 220* [...] Thyroid Studies: Recent Labs Component Name 11/13/22 021 TSH 5.706* Cardiac Enzymes: Recent Labs Component [...] until attested/co-signed by the attending physician. Solomon Brush, IM Resident PGY-1 [facility] Associated attestation - Cory Villarreal MD - [...] Pain affecting intake: No Estimated Needs: KCAL: [id number] (30-35 kcal/kg IBW) Protein (g): 82g (1.5 [...] Progress: Continue with current goal Orquidea Pederson RD/ABIMBOLA, MELVA Ascom: [phone] * Rosa Vegas, PT - 11/14/2022 10:[address] [facility] Physical Medicine and Rehabilitation Physical Therapy Progress Note Patient: Consuelo Darby Med Record Number: [id number] Date of : 1980 Age: [age] year [...] therapeutic exercises, and monitoring of vitals Modified [place]: Current Modified [place] Score: 5 AM-PAC 6 Clicks Mobility Raw [...] EOB x10 minutes with minimal assist ?? Jail Goal(s): Patient to discharge to appropriate next [...] results for input(s): MG in the last 26623 hours. Recent Labs Component Name 11/14/22 0239 11/13/22 0210 11/12/22 0532 PHOS 3.5 3.9 2.5* Recent Labs Component Name 11/14/22 0239 11/13/22 0210 11/12/22 0532 PT 15.9* 17.7* 22.1* INR 1.3 1.5 2.0 PTT 45.9* 47.9* 102.7* No results for input(s): A1C in the last 47779 hours. Recent Labs Component Name 10/20/22 0302 06/15/22 0757 CHOL 173 204* HDL 42 37* LDLCALC 91 117* TRIG 201* 251* Recent Labs Component Name 11/13/22 021 TSH 5.706* Recent Labs Component Name 11/13/22 1534 CKTOTAL 57 XR CHEST 1VW PORTABLE Result Date: 11/13/2022 PROCEDURE: XR CHEST 1VW PORTABLE, DATE/TIME OF EXAM: 11/12/2022 8:45 PM, LOCATION [facility] INDICATION: R50.9: Fever, unspecified fever cause [...] abnormality. Report dictated by Agnes Olmos DO (residential sales). I, Pepe Gonzalez MD have p ersonally reviewed and interpreted this examination/study. > Interpreting Provider: Pepe Gonzalez MD on 11/13/2022 11:59 AM MRI BRAIN WWO CONTRAST Result Date: 11/10/2022 PROCEDURE: MRI BRAIN WWO CONTRAST, DATE/TIME OF EXAM: 11/09/2022 11:51 PM, LOCATION [facility] INDICATION: R50.9: Fever, unspecified fever [...] of the right lateral ventricle and the eklzo-gi-ccvh midline shift. Extensive susceptibility artifacts along the [...] DATE/TIME OF EXAM: 11/07/2022 5:25 PM, LOCATION [facility] INDICATION: R50.9: Fever, unspecified fever [...] chest. > Dictated by Tim Major MD (residential sales). I, Alexx Lopez have personally reviewed and [...] Time to Reperfusion: 9:54 Final TICI: 2b Rigging Engineer: Dr. Mitali Walter Liner Roll Changer(s): Isak Monte Vessels: Ultrasound Guided Access of Femoral Artery Ultrasound Guided Access of Radial Artery Arterial line placement in the right radial artery Right Common Carotid Artery Angiogram: Cerebral Intracranial Catheterization Mechanical Thrombectomy with Retrievable Stent and Reperfusion Catheter Angiography Through the Existing Catheter Right Femoral Artery Angiogram Anesthesia: General Anesthesia was performed and monitored by an attending Anesthesiologist and their social human services assistants throughout the entirety of the case Procedural [...] artery demonstrated a patent vessel. A 5 fijian sheath was placed in the radial artery [...] Following a series of exchanges, a 8 Georgian sheath sheath was placed in the right femoralartery. A Guide and a 6 Georgian Siterra Select Serrano 2 catheter along with a [...] system. Hemostasis was achieved using a 8 Georgian Angio-Seal closure device. Hemostasis was immediate at [...] DATE/TIME OF EXAM: 11/05/2022 5:28 PM, LOCATION [facility] INDICATION: R50.9: Fever, unspecified fever [...] pattern. Report dictated by Mc Castro MD, (residential sales). Pepe Ornelas MD have personally reviewed and [...] DATE/TIME OF EXAM: 11/05/2022 9:38 AM, LOCATION [facility] INDICATION: R50.9: Fever, unspecified fever cause ADDITIONAL CLINICAL INFORMATION: Ordering Provider Reason For Exam: consolidation COMPARISON: Chest radiograph 10/29/2022. FINDINGS/IMPRESSION: Previously seen feeding tube has been removed. These no confluent consolidation, pleural effusion, or pneumothorax is noted. The cardiomediastinal silhouette is stable. No acute osseous abnormality is noted. Report dictated by Christopher Tobin MD, (residential sales). I, HEATHER FREGOSO MD have personally reviewed and interpreted this examination/study. > Interpreting Provider: HEATHER FREGOSO MD on 11/05/2022 2:[address] ABDOMEN WO CONTRAST Result Date: 11/02/2022 PROCEDURE: CT ABDOMEN WO CONTRAST, DATE/TIME OF EXAM: 2022 6:47 PM, LOCATION [facility] INDICATION: Z93.1: Presence of externally [...] queried.. > Dictated by Tim Major MD (residential sales). I, Pepe Gonzalez MD have personallyreviewed and interpreted this examination/study. > Interpreting Provider: Pepe Gonzalez MD on 11/02/2022 1:[address] ABDOMEN PELVIS W CONTRAST Result Date: 10/31/2022 PROCEDURE: CT ABDOMEN PELVIS W CONTRAST, DATE/TIME OF EXAM: 10/31/2022 10:16 AM, LOCATION [facility] INDICATION: I33.0: Aortic valve vegetation [...] DATE/TIME OF EXAM: 10/30/2022 8:22 PM, LOCATION: [facility] HISTORY: I63.511: Right middle cerebral artery stroke [...] frontal gyrus/frontal operculum, consistent with an evolving tipajkjg-wy-lzttthi infarct. 4.No significant midline shift. Similar-appearing size and configuration of the ventricles without evidence of hydrocephalus. Basal cisterns are patent. 5.No other convincing change. Partially imaged left nasoenteric tube. > Interpreting Provider: Amanda Real MD, PhD on 10/31/2022 1:26 AM [facility] W ANGIO TEAM Result Date: 10/30/2022 Fluoroscopy was used for this exam in the OR. Please see the Operative report. XR CHEST 1VW PORTABLE Result Date: 10/29/2022 PROCEDURE: XR CHEST 1VW PORTABLE, DATE/TIME OF EXAM: 10/29/2022 10:29 AM, LOCATION [facility] INDICATION: R09.02: Hypoxia ADDITIONAL CLINICAL INFORMATION: Ordering Provider Reason For Exam: evaluate for hypoxia COMPARISON: Chest x-ray from 10/27/2022 FINDINGS/IMPRESSION: Enteric tube is seen coursing over the diaphragm without visualization of the distal tip. There is no focal consolidation, pleural effusion, or pneumothorax. The cardiomediastinal silhouette is normal. Report dictated by Jacques Russell DO (residential sales). I, Jacques Cole DO have personally reviewed and interpreted this examination/study. 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 Report dictated by Jacques Russell DO (residential sales). Jacques Ornelas DO have personally reviewed and interpreted this examination/study. 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 FINDINGS/IMPRESSION: Enteric tube courses below the diaphragm with the distal tip superimposing the antropyloric region. Report dictated by Martell Shetty MD (residential sales). Jacques Ornelas DO have personally reviewed and interpreted this examination/study. > Interpreting Provider: Jacques Cole DO on 10/28/2022 12:[address] HEAD WO CONTRAST Result Date: 10/28/2022 PROCEDURE: CT HEAD WO CONTRAST, DATE/TIME OF EXAM: 10/28/2022 5:28 AM, LOCATION [facility] INDICATION: Z91.89: At high risk for bleeding [...] report is dictated by Kayla Stevenson MD (residential sales) 1 I, Lonnie Rae MD have personally reviewed and interpreted this examination/study. > Interpreting Provider: Lonnie Rae MD on 10/28/2022 9:15 AM XR CHEST 1VW PORTABLE Result Date: 10/27/2022 PROCEDURE: XR CHEST 1VW PORTABLE, DATE/TIME OF EXAM: 10/27/2022 10:19 AM, LOCATION [facility] INDICATION: D72.829: Leukocytosis, unspecified type ADDITIONAL CLINICAL INFORMATION: Ordering Provider Reason For Exam: any concern for pneumonia COMPARISON: Chest radiograph dated 10/25/2022. FINDINGS/IMPRESSION: Enteric tube courses below the diaphragm and out of the smqpu-gv-mjrr. RUQ surgical clips are present. No focal consolidation. No pleural effusion or pneumothorax. The cardiomediastinal silhouette is normal. Report dictated by Agnes Olmos DO (residential sales). IPepe MD have personally reviewed and interpreted this examination/study. 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 Enteric tube courses below the diaphragm and out of the jjzdo-mf-wsjq. There is severe left rotation of the patient in this study. There is no focal consolidation, pleural effusion, or pneumothorax. The left upper lobe pulmonary nodule noted on chest CT from same day is not visualized on this plain film. The cardiomediastinal silhouette is normal. The visible bony thorax is intact. Report dictated by Royer Stovall MD (residential sales). I, Alexx Lopez have personally reviewed and interpreted this examination/study. > Interpreting Provider: Alexx Lopez on 10/26/2022 2:[address] HEAD WO CONTRAST Result Date: 10/26/2022 PROCEDURE: CT HEAD WO CONTRAST, DATE/TIME OF EXAM: 10/26/2022 4:55 AM, LOCATION [facility] INDICATION: I63.511: Right middle cerebral [...] report is dictated by Miranda Bowen MD (residential sales) I, Oriana Suarez MD have personally reviewed and interpreted this examination/study. > Interpreting Provider: Oriana Suarez MD on 38:[address] CHEST ABDOMEN PELVIS W CONT Result Date: 10/25/2022 PROCEDURE: CT CHEST ABDOMEN PELVIS W CONT, DATE/TIME OF EXAM: 10/25/2022 12:56 PM, LOCATION [facility] INDICATION: I63.511: Right middle cerebral artery [...] verification. > Dictated by Clarisa Cantrell MD (residential sales). I, Alexx Lopez have personally reviewed and interpreted this examination/study. > Interpreting Provider: Alexx Lopez on 10/25/2022 4:[address] HEAD WO CONTRAST Result Date: 10/25/2022 PROCEDURE: CT HEAD WO CONTRAST, DATE/TIME OF EXAM: 10/25/2022 12:56 PM, LOCATION [facility] INDICATION: I63.511: Right middle cerebral artery [...] report is dictated by Miranda Bowen MD (residential sales) I, Joni Fabian MD have personally reviewed and interpreted this examination/study. > Interpreting Provider: Joni Fabian MD on 10/25/2022 2:[address] CARDIAC ANGIO STRUCT MORPH Result Date: 10/25/2022 PROCEDURE: CT CARDIAC ANGIO STRUCT MORPH, DATE/TIME OF EXAM: 10/23/2022 3:08 PM, LOCATION [facility] INDICATION: I63.411: Acute cerebrovascular accident [...] mitral valve is normal. Aorta: Normal caliber withno significant disease. Extra cardiac findings: Chest: Nasogastric tube partially visualized. Upperabdomen: No significant findings in the available limited [...] DATE/TIME OF EXAM: 10/24/2022 2:04 PM, LOCATION [facility] INDICATION: R47.1: Dysarthria ADDITIONAL CLINICAL INFORMATION: Ordering Provider ReasonFor Exam: ngt placement COMPARISON: Portable KUB dated 10/23/2022 FINDINGS/IMPRESSION: The enteric tube courses below the diaphragm with tip superimposing the gastric pyloric region. Drafted by Agnes Olmos DO (residential sales). I, Vanessa Kumar MD have personally reviewed and interpreted this examination/study. > Interpreting Provider: Vanessa Kumar MD on 10/24/2022 2:17 PM MRI BRAIN WWO CONTRAST Result Date: 10/24/2022 PROCEDURE: MRI BRAIN WWO CONTRAST, DATE/TIME OF EXAM: 10/24/2022 10:56 AM, LOCATION [facility] INDICATION: I63.411: Acute cerebrovascular accident [...] right lateral ventricle, and approximately 3-4 mm lontf-pn-kiwn midline shift at the level of the [...] right lateral ventricle, and approximately 3-4 mm zvkpk-nd-swil midline shift, grossly similar to the prior. [...] verification. Report dictated by Tim Major MD (residential sales). IJasper MD have personally reviewed and interpreted this examination/study. > Interpreting Provider: Jasper Sifuentes MD on 10/24/2022 1:59 PM XR CHEST 1VW PORTABLE Result Date: 10/24/2022 PROCEDURE: XR CHEST 1VW PORTABLE, DATE/TIME OF EXAM: 10/23/2022 8:24 AM, LOCATION [facility] INDICATION: I63.511: Right middle cerebral artery stroke (CMS/HCC) ADDITIONAL CLINICAL INFORMATION: Ordering Provider Reason For Exam: OETT position COMPARISON: Chest radiograph dated 10/21/2022 FINDINGS/IMPRESSION: The enteric tube courses below the diaphragm out of the inferior nadan-fg-bhvu. Endotracheal tube terminates in the midthoracic trachea. There is no focal consolidation. No pleural effusion or pneumothorax. The cardiomediastinal silhouette is normal. No acute osseous abnormality. Report dictated by Agnes Olmos DO (residential sales). Vanessa Ornelas MD have personally reviewed and [...] DATE/TIME OF EXAM: 10/23/2022 1:53 PM, LOCATION [facility] INDICATION: R47.1: Dysarthria ADDITIONAL CLINICAL INFORMATION: Ordering Provider ReasonFor Exam: NGT placement COMPARISON: Portable KUB dated 10/20/2022 FINDINGS/IMPRESSION: The enteric tube courses below the diaphragm with tip superimposing the stomach. Drafted by Agnes Olmos DO (residential sales). I, Vanessa Kumar MD have personally reviewed and interpreted this examination/study. > Interpreting Provider: Vanessa Kumar MD on 10/24/2022 8:[address] HEAD WO CONTRAST Result Date: 10/23/2022 PROCEDURE: CT HEAD WO CONTRAST, DATE/TIME OF EXAM: 10/23/2022 5:53 AM, LOCATION [facility] INDICATION: I63.511: Right middle cerebral [...] The report is dictated by Miranda Bowen MD(residential sales) I, Jasper Sifuentes MD have personally reviewed and interpreted this examination/study. > Interpreting Provider: Jasper Sifuentes MD on 10/23/2022 9:[address] HEAD WO CONTRAST Result Date: 10/22/2022 PROCEDURE: CT HEAD WO CONTRAST, DATE/TIME OF EXAM: 10/22/2022 5:35 AM, LOCATION [facility] INDICATION: I63.511: Right middle cerebral [...] hemorrhage. Report dictated by Lorenzo Horta MD (residential sales). ILonnie MD have personally reviewed and interpreted this examination/study. > Interpreting Provider: Lonnie Rae MD on 10/22/2022 3:10 PM XR CHEST 1VW PORTABLE Result Date: 10/21/2022 PROCEDURE: XR CHEST 1VW PORTABLE, DATE/TIME OF EXAM: 10/21/2022 8:53 AM, LOCATION [facility] INDICATION: R53.1: Weakness ADDITIONAL CLINICAL INFORMATION: Ordering [...] Report dictated by Christopher Tobin MD, MD (residential sales). I, HEATHER FREGOSO MD have personally reviewed [...] DATE/TIME OF EXAM: 10/20/2022 9:13 PM, LOCATION [facility] INDICATION: I63.411: Acute cerebrovascular accident (CVA) due to embolism of right middle cerebral artery (CMS/HCC) ADDITIONAL CLINICAL INFORMATION: Ordering Provider Reason For Exam: [facility] COMPARISON: Multiple prior studies, most recently CT [...] effacement, effacement of theright lateral ventricle, and gpuzk-ct-kocf midline shift measuring up to 4 mm [...] prior. > Dictated by Bassam Jovel M.D. (residential sales) Gonzalez Ornelas MD have personally reviewed and [...] body. Report dictated by Royer Stovall MD (residential sales). Amanda Ornelas MD have personally reviewed and [...] DATE/TIME OF EXAM: 10/19/2022 8:16 AM, LOCATION [facility] INDICATION: Code Stroke ADDITIONAL CLINICAL [...] DATE/TIME OF EXAM: 10/19/2022 8:04 AM, LOCATION [facility] INDICATION: Code Stroke ADDITIONAL CLINICAL [...] Parks MD - 11/14/2022 8:55 AM CDT [facility] Infectious Diseases Progress Note Date of Admission: 10/19/2022 7:53 AM Length of Stay: Room: [facility] Attending: Good Antunez MD Subjective Since last seen by us, she remains afebrile, hemodynamically stable, on room air. No acute events overnight, no acute distress, no new complaints. Unchanged mental status. Review of Systems Unable to perform ROS: Mental status change Antimicrobial History Current Antibiotics Meropenem 11/12 - present Doxycycline 11/05 - present Prior Antibiotics At [facility] Cefazolin 10/20 Vancomycin 10/20; 10/25 - [...] Lab Review CBC: Recent Labs Component Name 11/14/22 0239 11/13/22 0210 11/12/22 0532 10/23/22 0129 10/22/22 0153 WBC 4.7 2.7* 4.8 - - RBC 3.47* 3.36* 3.27* - - HGB 9.9* 9.8* 9.4* - - HCT 32.8* 30.8* 30.2* - - MCV 94.5 91.7 92.4 - - PLT - - - - 199 - = values in this interval not displayed. BMP: Recent Labs Component Name 11/14/2223811/13/2220911/12/22 0532 NA 140 138 136 CL 104 107 105 CO2 25 23 21* BUN 11 11 13 CREATININE 0.51* 0.54* 0.59 ALB 2.4* 2.4* 2.5* PROT 6.5 6.5 6.5 estimated creatinine clearance is 164.1 mL/min (A) (by C-G formula based on SCr of 0.51 mg/dL (L)). LFTs: Recent Labs Component Name 11/14/2223811/13/2220911/12/22 0532 06/15/22 0757 12/09/18 0812 07/25/18 2056 03/01/16 [...] not displayed. 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 I agree with the findings and plan of care as documented by the house mover. 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 Gilberto Pastrana MD, PhD, SAMANTHA * Good Antunez MD - 11/14/2022 8:37 [...] cerebritis or infections. ID recommends LP. -- alfonzo PEG fluid collection: Discussing with IR. - Urology replaced curtis (11/09-) Problem List Right middle cerebral artery [...] 1214 97.2 ??F (36.2 ??C) 83 16 115/68 Recent Labs Component Name 11/14/22 0239 11/13/22 0210 11/12/22 0532 NA 140 138 136 CL 104 107 105 CO2 25 23 21* BUN 11 11 13 CREATININE 0.51* 0.54* 0.59 CALCIUM 8.6 8.1* 7.8* PHOS 3.5 3.9 2.5* Recent Labs Component Name 11/14/22 0239 11/13/22 0210 11/12/22 0532 10/23/22 01210/22/22 0153 WBC 4.7 2.7* [...] 6.0* EAG 126 Recent Labs Component Name 11/14/22 0239 11/13/22 0210 11/12/22 0532 10/27/22202810/27/22 0054 PLTCOUNT 364 334 333 - 519* [...] (37.1 ??C) Axillary 92 -- 96 % 11/12/225 101/52 98.5 ??F (36.9 ??C) Axillary 91 -- 96 % 11/12/222158 -- 98.6 ??F (37 ??C) Oral -- -- -- 11/12/221938 111/57 99.1 ??F (37.3 ??C) Oral 100 -- 95 % 11/12/221918 -- 99.6 ??F (37.6 ??C) Oral -- [...] bilaterally ?? Labs: Recent Labs Component Name 11/13/2220911/12/2253111/11/22 1703 10/23/22 0129 10/22/22 0153 WBC 2.7* 4.8 5.0 - - RBC 3.36* 3.27* 3.41* - - HGB 9.8* 9.4* 9.9* - - HCT 30.8* 30.2* 31.9* - - PLT - - - - 199 - = values in this interval not displayed. Recent Labs Component Name 11/13/2220911/12/2253111/11/22 1703 NA 138 136 140 CL 107 105 108* CO2 23 21* 22 BUN 11 13 11 CREATININE 0.54* 0.59 0.56 CALCIUM 8.1* 7.8* 8.4 No results for input(s): MG in the last 99027 hours. Recent Labs Component Name 11/13/2220911/12/2253123 1703 PHOS 3.9 2.5* 3.3 Recent Labs Component Name 11/13/22 0210 11/12/22 0532 11/11/22 2351 11/11/22 1703 11/11/22 0928 PT 17.7* 22.1* - - 16.2* INR 1.5 2.0 - - 1.3 PTT 47.9* 102.7* 78.8* - 129.8* - = values in this interval not displayed. No results for input(s): A1C in the last 09803 hours. Recent Labs Component Name 10/20/22 0302 06/15/22 0757 CHOL 173 204* HDL 42 37* LDLCALC 91 117* TRIG 201* 251* Recent Labs Component Name 11/13/22 021 TSH 5.706* No results for input(s): CKMB, CKTOTAL, CKMB, TROPONINI, BNP in the last 00922 hours. XR CHEST 1VW PORTABLE Result Date: 11/13/2022 PROCEDURE: XR CHEST 1VW PORTABLE, DATE/TIME OF EXAM: 11/12/2022 8:45 PM, LOCATION [facility] INDICATION: R50.9: Fever, unspecified fever cause [...] abnormality. Report dictated by Agnes Olmos DO (residential sales). I, Pepe Gonzalez MD have p ersonally reviewed and interpreted this examination/study. > Interpreting Provider: Pepe Gonzalez MD on 11/13/2022 11:59 AM MRI BRAIN WWO CONTRAST Result Date: 11/10/2022 PROCEDURE: MRI BRAIN WWO CONTRAST, DATE/TIME OF EXAM: 11/09/2022 11:51 PM, LOCATION [facility] INDICATION: R50.9: Fever, unspecified fever [...] of the right lateral ventricle and the lqqvj-tc-ddur midline shift. Extensive susceptibility artifacts along the [...] DATE/TIME OF EXAM: 11/07/2022 5:25 PM, LOCATION [facility] INDICATION: R50.9: Fever, unspecified fever [...] chest. > Dictated by Tim Major MD (residential sales). I, Alexx Lopez have personally reviewed and [...] m-mode, color and spectralDoppler echocardiography. [facility] THROM[facility] Result Date: 11/07/2022 PROCEDURE: [facility] THROMBECT DATE/TIME OF EXAM: 10/19/2022 10:41 AM [...] Time to Reperfusion: 9:54 Final TICI: 2b Rigging Engineer: Dr. Mitali Walter Liner Roll Changer(s): Isak Monte Vessels: Ultrasound Guided Access of Femoral Artery Ultrasound Guided Access of Radial Artery Arterial line placement in the right radial artery Right Common Carotid Artery Angiogram: Cerebral Intracranial Catheterization Mechanical Thrombectomy with Retrievable Stent and Reperfusion Catheter Angiography Through the Existing Catheter Right Femoral Artery Angiogram Anesthesia: General Anesthesia was performed and monitored by an attending Anesthesiologist and their social human services assistants throughout the entirety of the case Procedural [...] artery demonstrated a patent vessel. A 5 fijian sheath was placed in the radial artery [...] Following a series of exchanges, a 8 Georgian sheath sheath was placed in the right femoralartery. A Guide and a 6 Georgian Siterra Select Serrano 2 catheter along with a [...] system. Hemostasis was achieved using a 8 Georgian Angio-Seal closure device. Hemostasis was immediate at [...] DATE/TIME OF EXAM: 11/05/2022 5:28 PM, LOCATION [facility] INDICATION: R50.9: Fever, unspecified fever [...] pattern. Report dictated by Mc Castro MD, (residential sales). Pepe Ornelas MD have personally reviewed and [...] DATE/TIME OF EXAM: 11/05/2022 9:38 AM, LOCATION [facility] INDICATION: R50.9: Fever, unspecified fever cause ADDITIONAL CLINICAL INFORMATION: Ordering Provider Reason For Exam: consolidation COMPARISON: Chest radiograph 10/29/2022. FINDINGS/IMPRESSION: Previously seen feeding tube has been removed. These no confluent consolidation, pleural effusion, or pneumothorax is noted. The cardiomediastinal silhouette is stable. No acute osseous abnormality is noted. Report dictated by Christopher Tobin MD, (residential sales). I, HEATHER FREGOSO MD have personally reviewed and interpreted this examination/study. > Interpreting Provider: HEATHER FREGOSO MD on 11/05/2022 2:[address] ABDOMEN WO CONTRAST Result Date: 11/02/2022 PROCEDURE: CT ABDOMEN WO CONTRAST, DATE/TIME OF EXAM: 2022 6:47 PM, LOCATION [facility] INDICATION: Z93.1: Presence of externally [...] queried.. > Dictated by Tim Major MD (residential sales). I, Pepe Gonzalez MD have personallyreviewed and interpreted this examination/study. > Interpreting Provider: Pepe Gonzalez MD on 11/02/2022 1:[address] ABDOMEN PELVIS W CONTRAST Result Date: 10/31/2022 PROCEDURE: CT ABDOMEN PELVIS W CONTRAST, DATE/TIME OF EXAM: 10/31/2022 10:16 AM, LOCATION [facility] INDICATION: I33.0: Aortic valve vegetation ADDITIONAL CLINICAL INFORMATION: Ordering Provider Reason For Exam: abscess? Technologist Note: Additional: COMPARISON: CT chest abdomen and pelvis 10/25/2022. TECHNIQUE: CT of the abdomen and pelvis was performed following the uneventfuladministration of 100 mL of Isovue 370 intravenous contrast according to standard protocol. Findings: Lower Chest: Bibasilar subsegmental atelectasis present. Liver: Normal. Gallbladder and Bile Ducts: The gallbladder is absent. Spleen: Normal. Pancreas: Normal. Adrenals: Normal. Kidneys: Normal. Bladder: A Puentes catheter terminates within a decompressed urinary bladder. Gastrointestinal: Enterictube terminates in the stomach. Duodenal diverticulum present. [...] mild narrowing in this region likely resenting postsur gical changes. Questionable flap in the proximal common femoral artery (series 3 image 153). Bones:Bone windows demonstrate no suspicious lytic or blastic lesions. The visible osseous structures areintact. Soft tissues: There is extensive soft tissue stranding edema and fluid throughout the rightgroin with multiple foci of subcutaneous gas along likely represent post surgical changes. Althoughthere is focal fluid was prominent at series 3, image 153 in this region no rim-enhancing drainablefluid collections are appreciated at this time. 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 4.No significant midline shift. Similar-appearing size and configuration of the ventricles without evidence of hydrocephalus. Basal cisterns are patent. 5.No other convincing change. Partially imaged left nasoenteric tube. > Interpreting Provider: Amanda Real MD, PhD on 10/31/2022 1:26 AM CO GL[facility] Farhad ANGIO TEAM Result Date: 10/30/2022 Fluoroscopy was used for this exam in the OR. Please see the Operative report. XR CHEST 1VW PORTABLE Result Date: 10/29/2022 PROCEDURE: XR CHEST 1VW PORTABLE, DATE/TIME OF EXAM: 10/29/2022 10:29 AM, LOCATION [facility] INDICATION: R09.02: Hypoxia ADDITIONAL CLINICAL INFORMATION: Ordering Provider Reason For Exam: evaluate for hypoxia COMPARISON: Chest x-ray from 10/27/2022 FINDINGS/IMPRESSION: Enteric tube is seen coursing over the diaphragm without visualization of the distal tip. There is no focal consolidation, pleural effusion, or pneumothorax. The cardiomediastinal silhouette is normal. Report dictated by Jacques Russell DO (residential sales). I, Jacques Cole DO have personally reviewed and interpreted this examination/study. 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 Report dictated by Jacques Russell DO (residential sales). Jacques Ornelas DO have personally reviewed and interpreted this examination/study. 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 FINDINGS/IMPRESSION: Enteric tube courses below the diaphragm with the distal tip superimposing the antropyloric region. Report dictated by Martell Shetty MD (residential sales). Jacques Ornelas DO have personally reviewed and interpreted this examination/study. > Interpreting Provider: Jacques Cole DO on 10/28/2022 12:[address] HEAD WO CONTRAST Result Date: 10/28/2022 PROCEDURE: CT HEAD WO CONTRAST, DATE/TIME OF EXAM: 10/28/2022 5:28 AM, LOCATION [facility] INDICATION: Z91.89: At high risk for bleeding [...] report is dictated by Kayla Stevenson MD (residential sales) 1 ILonnie MD have personally reviewed and interpreted this examination/study. > Interpreting Provider: Lonnie Rae MD on 10/28/2022 9:15 AM XR CHEST 1VW PORTABLE Result Date: 10/27/2022 PROCEDURE: XR CHEST 1VW PORTABLE, DATE/TIME OF EXAM: 10/27/2022 10:19 AM, LOCATION [facility] INDICATION: D72.829: Leukocytosis, unspecified type ADDITIONAL CLINICAL INFORMATION: Ordering Provider Reason For Exam: any concern for pneumonia COMPARISON: Chest radiograph dated 10/25/2022. FINDINGS/IMPRESSION: Enteric tube courses below the diaphragm and out of the hmwha-vt-eeql. RUQ surgical clips are present. No focal consolidation. No pleural effusion or pneumothorax. The cardiomediastinal silhouette is normal. Report dictated by Agnes Olmos DO (residential sales). Pepe Ornelas MD have personally reviewed and interpreted this examination/study. > Interpreting Provider: Pepe Gonzalez MD on 10/27/2022 2:[address] HEAD WO CONTRAST Result Date: 10/27/2022 PROCEDURE: CT HEAD WO CONTRAST, DATE/TIME OF EXAM: 10/27/2022 5:54 AM, LOCATION [facility] INDICATION: I63.511: Right middle cerebral [...] cisterns are patent. No midline shift. The csott-white matter differentiation is normal. 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 Enteric tube courses below the diaphragm and out of the umczj-jr-duoz. There is severe left rotation of the patient in this study. There is no focal consolidation, pleural effusion, or pneumothorax. The left upper lobe pulmonary nodule noted on chest CT from same day is not visualized on this plain film. The cardiomediastinal silhouette is normal. The visible bony thorax is intact. Report dictated by Royer Stovall MD (residential sales). I, Alexx Lopez have personally reviewed and interpreted this examination/study. > Interpreting Provider: Alexx Lopez on 10/26/2022 2:[address] HEAD WO CONTRAST Result Date: 10/26/2022 PROCEDURE: CT HEAD WO CONTRAST, DATE/TIME OF EXAM: 10/26/2022 4:55 AM, LOCATION [facility] INDICATION: I63.511: Right middle cerebral [...] report is dictated by Miranda Bowen MD (residential sales) I, Oriana Suarez MD have personally reviewed and interpreted this examination/study. > Interpreting Provider: Oriana Suarez MD on 38:[address] CHEST ABDOMEN PELVIS W CONT Result Date: 10/25/2022 PROCEDURE: CT CHEST ABDOMEN PELVIS W CONT, DATE/TIME OF EXAM: 10/25/2022 12:56 PM, LOCATION [facility] INDICATION: I63.511: Right middle cerebral artery [...] verification. > Dictated by Clarisa Cantrell MD (residential sales). IAlexx have personally reviewed and interpreted this examination/study. > Interpreting Provider: Alexx Lopez on 10/25/2022 4:[address] HEAD WO CONTRAST Result Date: 10/25/2022 PROCEDURE: CT HEAD WO CONTRAST, DATE/TIME OF EXAM: 10/25/2022 12:56 PM, LOCATION [facility] INDICATION: I63.511: Right middle cerebral artery stroke ([facility]) I33.0: Aortic valve vegetation ADDITIONAL CLINICAL INFORMATION: [...] report is dictated by Miranda Bowen MD (residential sales) I, Joni Fabian MD have personally reviewed and interpreted this examination/study. > Interpreting Provider: Joni Fabian MD on 10/25/2022 2:[address] CARDIAC ANGIO STRUCT MORPH Result Date: 10/25/2022 PROCEDURE: CT CARDIAC ANGIO STRUCT MORPH, DATE/TIME OF EXAM: 10/23/2022 3:08 PM, LOCATION [facility] INDICATION: I63.411: Acute cerebrovascular accident [...] and two on the left. Pericardium: Normal thick ness with no significant effusion or calcium present. Cardiac valves: There is a 6 mm lesion involving the noncoronary cusp of the aortic valve. The mitral valve is normal. Aorta: Normal caliber withno significant disease. Extra cardiac findings: Chest: Nasogastric tube partially visualized. Upperabdomen: No significant findings in the available limited [...] DATE/TIME OF EXAM: 10/24/2022 2:04 PM, LOCATION [facility] INDICATION: R47.1: Dysarthria ADDITIONAL CLINICAL INFORMATION: Ordering Provider ReasonFor Exam: ngt placement COMPARISON: Portable KUB dated 10/23/2022 FINDINGS/IMPRESSION: The enteric tube courses below the diaphragm with tip superimposing the gastric pyloric region. Drafted by Agnes Olmos DO (residential sales). I, Vanessa Kumar MD have personally reviewed and interpreted this examination/study. > Interpreting Provider: Vanessa Kumar MD on 10/24/2022 2:17 PM MRI BRAIN WWO CONTRAST Result Date: 10/24/2022 PROCEDURE: MRI BRAIN WWO CONTRAST, DATE/TIME OF EXAM: 10/24/2022 10:56 AM, LOCATION [facility] INDICATION: I63.411: Acute cerebrovascular accident [...] right lateral ventricle, and approximately 3-4 mm nozcl-un-aucw midline shift at the level of the [...] right lateral ventricle, and approximately 3-4 mm omdat-vl-waaq midline shift, grossly similar to the prior. 3.Mild dilation of the left lateral ventricle may represent subtle left ventricular entrapment, overall grossly similar to prior. 4.Additional multiple foci of abnormal diffusion within the left frontotemporal lobes with associated T2 FLAIR hyperintensity representing additional small acute to subacute infarcts, likely of cardioembolic etiology. Findings communicated to Dr. oMhr by Dr. Major at 1138 hours on 10/24/2022 with readback comprehension and verification. Report dictated by Tim Major MD (residential sales). Jasper Ornelas MD have personally reviewed and interpreted this examination/study. 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 Endotracheal tube terminates in the midthoracic trachea. There is no focal consolidation. No pleural effusion or pneumothorax. The cardiomediastinal silhouette is normal. No acute osseous abnormality. Report dictated by Agnes Olmos DO (residential sales). Vanessa Ornelas MD have personally reviewed and [...] DATE/TIME OF EXAM: 10/23/2022 1:53 PM, LOCATION [facility] INDICATION: R47.1: Dysarthria ADDITIONAL CLINICAL INFORMATION: Ordering Provider ReasonFor Exam: NGT placement COMPARISON: Portable KUB dated 10/20/2022 FINDINGS/IMPRESSION: The enteric tube courses below the diaphragm with tip superimposing the stomach. Drafted by Agnes Olmos DO (residential sales). I, Vanessa Kumar MD have personally reviewed and interpreted this examination/study. > Interpreting Provider: Vanessa Kumar MD on 10/24/2022 8:[address] HEAD WO CONTRAST Result Date: 10/23/2022 PROCEDURE: CT HEAD WO CONTRAST, DATE/TIME OF EXAM: 10/23/2022 5:53 AM, LOCATION [facility] INDICATION: I63.511: Right middle cerebral [...] The report is dictated by Miranda Bowen MD(residential sales) I, Jasper Sifuentes MD have personally reviewed and interpreted this examination/study. > Interpreting Provider: Jasper Sifuentes MD on 10/23/2022 9:[address] HEAD WO CONTRAST Result Date: 10/22/2022 PROCEDURE: CT HEAD WO CONTRAST, DATE/TIME OF EXAM: 10/22/2022 5:35 AM, LOCATION [facility] INDICATION: I63.511: Right middle cerebral [...] hemorrhage. Report dictated by Lorenzo Horta MD (residential sales). ILonnie MD have personally reviewed and interpreted this examination/study. > Interpreting Provider: Lonnie Rae MD on 10/22/2022 3:10 PM XR CHEST 1VW PORTABLE Result Date: 10/21/2022 PROCEDURE: XR CHEST 1VW PORTABLE, DATE/TIME OF EXAM: 10/21/2022 8:53 AM, LOCATION [facility] INDICATION: R53.1: Weakness ADDITIONAL CLINICAL INFORMATION: Ordering [...] Report dictated by Christopher Tobin MD, MD (residential sales). I, HEATHER FREGOSO MD have personally reviewed [...] DATE/TIME OF EXAM: 10/20/2022 9:13 PM, LOCATION [facility] INDICATION: I63.411: Acute cerebrovascular accident (CVA) due to embolism of right middle cerebral artery (CMS/HCC) ADDITIONAL CLINICAL INFORMATION: Ordering Provider Reason For Exam: [facility] COMPARISON: Multiple prior studies, most recently CT [...] effacement, effacement of theright lateral ventricle, and zkgis-hi-zvhf midline shift measuring up to 4 mm [...] prior. > Dictated by Bassam Jovel M.D. (residential sales) Gonzalez Ornelas MD have personally reviewed and [...] body. Report dictated by Royer Stovall MD (residential sales). Amanda Ornelas MD have personally reviewed and [...] DATE/TIME OF EXAM: 10/19/2022 8:16 AM, LOCATION [facility] INDICATION: Code Stroke ADDITIONAL CLINICAL [...] DATE/TIME OF EXAM: 10/19/2022 8:04 AM, LOCATION [facility] INDICATION: Code Stroke ADDITIONAL CLINICAL [...] Baig MD - 11/13/2022 2:12 PM CDT [facility] Patient: Consuelo Darby Age: [age] year old Date of : 1980 Date of Admission: 10/19/2022 Date: 11/13/2022 Reason for consult: elevated liver enzymes Consult team: Neuro stroke HISTORY: I saw Ms. Consuelo Darby in consultation at [facility] on 11/13/2022 for evaluation of her elevated [...] REVIEWED: LABS: CBC: Recent Labs Component Name 11/13/2220911/12/22 0532 11/11/22 1703 10/23/22 0129 10/22/22 0153 WBC 2.7* 4.8 5.0 - - HGB 9.8* 9.4* 9.9* - - HCT 30.8* 30.2* 31.9* - - MCV 91.7 92.4 93.5 - - PLT - - - - 199 - = values in this interval not displayed. Coagulation Panel: Recent Labs Component Name 11/13/2220911/12/22 0532 11/11/22 2351 11/11/22 17011/11/22 0928 PT 17.7* 22.1* - - 16.2* INR 1.5 2.0 - - 1.3 PTT 47.9* 102.7* 78.8* - 129.8* - = values in this interval not displayed. BMP: Recent Labs Component Name 11/13/2220911/12/22 0532 11/11/22 170 NA 138 136 140 CL 107 105 108* CO2 23 21* 22 BUN 11 13 11 CREATININE 0.54* 0.59 0.56 CALCIUM 8.1* 7.8* 8.4 Recent Labs Component Name 11/13/2220911/12/22 0532 11/11/22 1703 MAGNESIUM 2.2 1.7 2.0 Recent Labs Component Name 11/13/2220911/12/22 0532 11/11/22 1703 PHOS 3.9 2.5* 3.3 Hepatic Panel: Recent Labs Component Name 11/13/2220911/12/22 0532 11/09/22 0654 AST 195* 220* 67* [...] input(s): CKTOTAL, CKMB, TROPONINI in the last 30232 hours. Invalid input(s): CKMBINDEX Lipid Panel: Recent [...] Triana COTA - 11/13/2022 1:20 PM CDT [facility] Physical Medicine and Rehabilitation Occupational Therapy Splint [...] splint re-applied. RN Radha richards. 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 and Will continue to monitor [...] Surgery Resident, PGY1 11/13/2022 11:27 * Tia Pizarro, PT - 11/13/2022 10:[address] [facility] Physical Medicine and Rehabilitation Physical Therapy Progress Note Patient: Consuelo Darby Med Record Number: [id number] Date of : 1980 Age: [age] year [...] EOB with R UE support on Maria Luisa Steady and bilat knee blocking during initiation [...] focus on posture and head/trunk alignment Modified [place]: Current Modified Maryann Score: 5 AM-PAC 6 [...] sit EOB x10 minutes with minimal assist Jail Goal(s): Patient to discharge to appropriate next [...] Parks MD - 11/13/2022 8:36 AM CDT [facility] Infectious Diseases Progress Note Date of Admission: 10/19/2022 7:53 AM Length of Stay: Day Room: [facility] Attending: Good Antunez MD Subjective Since last [...] Doxycycline 11/05 - present Prior Antibiotics At [facility] Cefazolin 10/20 Vancomycin 10/20; 10/25 - [...] 107 105 108* - - CO2 23 * 22 - - BUN 11 13 11 [...] DVT At this time 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 I agree with the findings and plan of care as documented by the house mover. 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 ID recommends LP. -- alfonzo PEG fluid collection: Discussing with IR. - [...] 98.5 ??F (36.9 ??C) 91 -- 101/52 11/12/222158 98.6 ??F (37 ??C) -- -- -- 11/12/221938 99.1 ??F (37.3 ??C) 100 -- 111/57 11/12/221918 99.6 ??F (37.6 ??C) -- -- -- 11/12/22 1719 (!) 100.3 ??F (37.9 ??C) -- -- -- 11/12/22 1553 (!) 102.9 ??F (39.4 ??C) (!) 119 19 135/70 11/12/22 1347 99.8 ??F (37.7 ??C) 103 -- 100/77 11/12/22 1156 (!) 102.6 ??F (39.2 ??C) 106 17 93/70 11/12/22 1058 (!) 102.2 ??F (39 ??C) -- -- -- Recent Labs Component Name 11/13/2220911/12/22 0532 11/11/22 1703 NA 138 136 140 CL 107 105 108* CO2 23 21* 22 BUN 11 13 11 CREATININE 0.54* 0.59 0.56 CALCIUM 8.1* 7.8* 8.4 PHOS 3.9 2.5* 3.3 Recent Labs Component Name 11/13/2220911/12/22 0532 11/11/22 17010/23/22 0129 10/22/22 0153 WBC 2.7* 4.8 5.0 [...] 6.0* EAG 126 Recent Labs Component Name 11/13/2220911/12/22 0532 11/11/22 17010/27/22202810/27/22 0054 PLTCOUNT 334 333 [...] Chin OT - 11/12/2022 3:59 PM CDT [facility] Physical Medicine and Rehabilitation Occupational Therapy Splint [...] while patient in hospital. ?? 11/12/2022 * Michelle Arce RN - 11/12/2022 3:26 PM CDT Problem: [...] CDT Stroke Service Daily Progress Note Consuelo Stock Mehnaz Age: [age] year old Date of : [...] and patch angioplasty. 10/31: CT A/P obtained 2/ concern for abscess by GI team while [...] bilaterally ? Labs: Recent Labs Component Name 11/12/2253111/11/22170211/10/228 10/23/22 0129 10/22/22 0153 WBC 4.8 5.0 7.1 - - RBC 3.27* 3.41* 3.22* - - HGB 9.4* 9.9* 9.5* - - HCT 30.2* 31.9* 29.7* - - PLT - - - - 199 - = values in this interval not displayed. Recent Labs Component Name 11/12/2253111/11/22170211/10/22222 NA 136 140 136 CL 105 108* 105 CO2 21* 22 24 BUN 13 11 13 CREATININE 0.59 0.56 0.52* CALCIUM 7.8* 8.4 8.4 No results for input(s): MG in the last 09474 hours. Recent Labs Component Name 11/12/2253111/11/22170211/10/22222 PHOS 2.5* 3.3 3.9 Recent Labs Component Name 11/12/2253111/11/22235011/11/22170211/11/22 0928 11/10/22 2338 PT 22.1* - - 16.2* 15.6* INR 2.0 - - 1.3 1.3 PTT 102.7* 78.8* 140.8* 129.8* 36.3 No results for input(s): A1C in the last 43698 hours. Recent Labs Component Name 10/20/22 0302 06/15/22 0757 CHOL 173 204* HDL 42 37* LDLCALC 91 117* TRIG 201* 251* Recent Labs Component Name 11/06/22 0136 TSH 1.682 No results for input(s): CKMB, CKTOTAL, CKMB, TROPONINI, BNP in the last 26192 hours. MRI BRAIN WWO CONTRAST Result Date: 11/10/2022 PROCEDURE: MRI BRAIN WWO CONTRAST, DATE/TIME OF EXAM: 11/09/2022 11:51 PM, LOCATION [facility] INDICATION: R50.9: Fever, unspecified fever [...] of the right lateral ventricle and the xgwuy-pd-ooaz midline shift. Extensive susceptibility artifacts along the [...] DATE/TIME OF EXAM: 11/07/2022 5:25 PM, LOCATION [facility] INDICATION: R50.9: Fever, unspecified fever [...] chest. > Dictated by Tim Major MD (residential sales). I, Alexx Lopez have personally reviewed and [...] Time to Reperfusion: 9:54 Final TICI: 2b Rigging Engineer: Dr. Mitali Walter Liner Roll Changer(s): Isak Monte Vessels: Ultrasound Guided Access of Femoral Artery Ultrasound Guided Access of Radial Artery Arterial line placement in the right radial artery Right Common Carotid Artery Angiogram: Cerebral Intracranial Catheterization Mechanical Thrombectomy with Retrievable Stent and Reperfusion Catheter Angiography Through the Existing Catheter Right Femoral Artery Angiogram Anesthesia: General Anesthesia was performed and monitored by an attending Anesthesiologist and their social human services assistants throughout the entirety of the case Procedural [...] artery demonstrated a patent vessel. A 5 fijian sheath was placed in the radial artery [...] Following a series of exchanges, a 8 Georgian sheath sheath was placed in the right femoralartery. A Guide and a 6 Georgian Siterra Select Serrano 2 catheter along with a [...] system. Hemostasis was achieved using a 8 Georgian Angio-Seal closure device. Hemostasis was immediate at [...] DATE/TIME OF EXAM: 11/05/2022 5:28 PM, LOCATION [facility] INDICATION: R50.9: Fever, unspecified fever [...] pattern. Report dictated by Mc Castro MD, (residential sales). I, Pepe Gonzalez MD have personally reviewed [...] DATE/TIME OF EXAM: 11/05/2022 9:38 AM, LOCATION [facility] INDICATION: R50.9: Fever, unspecified fever cause ADDITIONAL CLINICAL INFORMATION: Ordering Provider Reason For Exam: consolidation COMPARISON: Chest radiograph 10/29/2022. FINDINGS/IMPRESSION: Previously seen feeding tube has been removed. These no confluent consolidation, pleural effusion, or pneumothorax is noted. The cardiomediastinal silhouette is stable. No acute osseous abnormality is noted. Report dictated by Christopher Tobin MD, MD (residential sales). I, HEATHER FREGOSO MD have personally reviewed and interpreted this examination/study. > Interpreting Provider: HEATHER FREGOSO MD on 11/05/2022 2:[address] ABDOMEN WO CONTRAST Result Date: 11/02/2022 PROCEDURE: CT ABDOMEN WO CONTRAST, DATE/TIME OF EXAM: 2022 6:47 PM, LOCATION [facility] INDICATION: Z93.1: Presence of externally [...] queried.. > Dictated by Tim Major MD (residential sales). I, Pepe Gonzalez MD have personallyreviewed and interpreted this examination/study. 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 4.No significant midline shift. Similar-appearing size [...] DATE/TIME OF EXAM: 10/29/2022 10:29 AM, LOCATION [facility] INDICATION: R09.02: Hypoxia ADDITIONAL CLINICAL INFORMATION: Ordering Provider Reason For Exam: evaluate for hypoxia COMPARISON: Chest x-ray from 10/27/2022 FINDINGS/IMPRESSION: Enteric tube is seen coursing over the diaphragm without visualization of the distal tip. There is no focal consolidation, pleural effusion, or pneumothorax. The cardiomediastinal silhouette is normal. Report dictated by Jacques Russell DO (residential sales). Jacques Ornelas DO have personally reviewed and interpreted this examination/study. 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 Report dictated by Jacques Russell DO (residential sales). Jacques Ornelas DO have personally reviewed and interpreted this examination/study. 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 FINDINGS/IMPRESSION: Enteric tube courses below the diaphragm with the distal tip superimposing the antropyloric region. Report dictated by Martell Shetty MD (residential sales). Jacques Ornelas DO have personally reviewed and interpreted this examination/study. > Interpreting Provider: Jacques Cole DO on 10/28/2022 12:[address] HEAD WO CONTRAST Result Date: 10/28/2022 PROCEDURE: CT HEAD WO CONTRAST, DATE/TIME OF EXAM: 10/28/2022 5:28 AM, LOCATION [facility] INDICATION: Z91.89: At high risk for bleeding [...] report is dictated by Kayla Stevenson MD (residential sales) 1 I, Lonnie Rae MD have personally reviewed and interpreted this examination/study. > Interpreting Provider: Lonnie Rae MD on 10/28/2022 9:15 AM XR CHEST 1VW PORTABLE Result Date: 10/27/2022 PROCEDURE: XR CHEST 1VW PORTABLE, DATE/TIME OF EXAM: 10/27/2022 10:19 AM, LOCATION [facility] INDICATION: D72.829: Leukocytosis, unspecified type ADDITIONAL CLINICAL INFORMATION: Ordering Provider Reason For Exam: any concern for pneumonia COMPARISON: Chest radiograph dated 10/25/2022. FINDINGS/IMPRESSION: Enteric tube courses below the diaphragm and out of the hxzbj-ia-vvmg. RUQ surgical clips are present. No focal consolidation. No pleural effusion or pneumothorax. The cardiomediastinal silhouette is normal. Report dictated by Agnes Olmos DO (residential sales). I, Pepe Gonzalez MD have personally reviewed and interpreted this examination/study. 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 Enteric tube courses below the diaphragm and out of the lozio-ie-ssaa. There is severe left rotation of the patient in this study. There is no focal consolidation, pleural effusion, or pneumothorax. The left upper lobe pulmonary nodule noted on chest CT from same day is not visualized on this plain film. The cardiomediastinal silhouette is normal. The visible bony thorax is intact. Report dictated by Royer Stovall MD (residential sales). I, Alexx Lopez have personally reviewed and interpreted this examination/study. > Interpreting Provider: Alexx Lopez on 10/26/2022 2:[address] HEAD WO CONTRAST Result Date: 10/26/2022 PROCEDURE: CT HEAD WO CONTRAST, DATE/TIME OF EXAM: 10/26/2022 4:55 AM, LOCATION [facility] INDICATION: I63.511: Right middle cerebral [...] report is dictated by Miranda Bowen MD (residential sales) IOriana MD have personally reviewed and interpreted this examination/study. > Interpreting Provider: Oriana Suarez MD on 38:[address] CHEST ABDOMEN PELVIS W CONT Result Date: 10/25/2022 PROCEDURE: CT CHEST ABDOMEN PELVIS W CONT, DATE/TIME OF EXAM: 10/25/2022 12:56 PM, LOCATION [facility] INDICATION: I63.511: Right middle cerebral artery [...] verification. > Dictated by Clarisa Cantrell MD (residential sales). I, Alexx Lopez have personally reviewed and interpreted this examination/study. > Interpreting Provider: Alexx Lopez on 10/25/2022 4:[address] HEAD WO CONTRAST Result Date: 10/25/2022 PROCEDURE: CT HEAD WO CONTRAST, DATE/TIME OF EXAM: 10/25/2022 12:56 PM, LOCATION [facility] INDICATION: I63.511: Right middle cerebral artery [...] report is dictated by Miranda Bowen MD (residential sales) I, Joni Fabian MD have personally reviewed and interpreted this examination/study. > Interpreting Provider: Joni Fabian MD on 10/25/2022 2:[address] CARDIAC ANGIO STRUCT MORPH Result Date: 10/25/2022 PROCEDURE: CT CARDIAC ANGIO STRUCT MORPH, DATE/TIME OF EXAM: 10/23/2022 3:08 PM, LOCATION [facility] INDICATION: I63.411: Acute cerebrovascular accident [...] DATE/TIME OF EXAM: 10/24/2022 2:04 PM, LOCATION [facility] INDICATION: R47.1: Dysarthria ADDITIONAL CLINICAL INFORMATION: Ordering Provider ReasonFor Exam: ngt placement COMPARISON: Portable KUB dated 10/23/2022 FINDINGS/IMPRESSION: The enteric tube courses below the diaphragm with tip superimposing the gastric pyloric region. Drafted by Agnes Olmos DO (residential sales). I, Vanessa Kumar MD have personally reviewed and interpreted this examination/study. > Interpreting Provider: Vanessa Kumar MD on 10/24/2022 2:17 PM MRI BRAIN WWO CONTRAST Result Date: 10/24/2022 PROCEDURE: MRI BRAIN WWO CONTRAST, DATE/TIME OF EXAM: 10/24/2022 10:56 AM, LOCATION [facility] INDICATION: I63.411: Acute cerebrovascular accident [...] right lateral ventricle, and approximately 3-4 mm fqwaw-jx-vptb midline shift at the level of the [...] right lateral ventricle, and approximately 3-4 mm ikfzi-eu-mvtv midline shift, grossly similar to the prior. [...] verification. Report dictated by Tim Major MD (residential sales). I, Jasper Sifuentes MD have personally reviewed and interpreted this examination/study. 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 Endotracheal tube terminates in the midthoracic trachea. There is no focal consolidation. No pleural effusion or pneumothorax. The cardiomediastinal silhouette is normal. No acute osseous abnormality. Report dictated by Agnes Olmos DO (residential sales). Vanessa Ornelas MD have personally reviewed and [...] DATE/TIME OF EXAM: 10/23/2022 1:53 PM, LOCATION [facility] INDICATION: R47.1: Dysarthria ADDITIONAL CLINICAL INFORMATION: Ordering Provider ReasonFor Exam: NGT placement COMPARISON: Portable KUB dated 10/20/2022 FINDINGS/IMPRESSION: The enteric tube courses below the diaphragm with tip superimposing the stomach. Drafted by Agnes Olmos DO (residential sales). Vanessa Ornelas MD have personally reviewed and interpreted this examination/study. > Interpreting Provider: Vanessa Kumar MD on 10/24/2022 8:[address] HEAD WO CONTRAST Result Date: 10/23/2022 PROCEDURE: CT HEAD WO CONTRAST, DATE/TIME OF EXAM: 10/23/2022 5:53 AM, LOCATION [facility] INDICATION: I63.511: Right middle cerebral artery stroke ([facility]) ADDITIONAL CLINICAL INFORMATION: Ordering Provider Reason For [...] The report is dictated by Miranda Bowen MD(residential sales) IJasper MD have personally reviewed and interpreted this examination/study. > Interpreting Provider: Jasper Sifuentes MD on 10/23/2022 9:[address] HEAD WO CONTRAST Result Date: 10/22/2022 PROCEDURE: CT HEAD WO CONTRAST, DATE/TIME OF EXAM: 10/22/2022 5:35 AM, LOCATION [facility] INDICATION: I63.511: Right middle cerebral [...] hemorrhage. Report dictated by Lorenzo Horta MD (residential sales). Lonnie Ornelas MD have personally reviewed and interpreted this examination/study. > Interpreting Provider: Lonnie Rae MD on 10/22/2022 3:10 PM XR CHEST 1VW PORTABLE Result Date: 10/21/2022 PROCEDURE: XR CHEST 1VW PORTABLE, DATE/TIME OF EXAM: 10/21/2022 8:53 AM, LOCATION [facility] INDICATION: R53.1: Weakness ADDITIONAL CLINICAL INFORMATION: Ordering [...] Report dictated by Christopher Tobin MD, MD (residential sales). HEATHER Ornelas MD have personally reviewed and [...] DATE/TIME OF EXAM: 10/20/2022 9:13 PM, LOCATION [facility] INDICATION: I63.411: Acute cerebrovascular accident (CVA) due to embolism of right middle cerebral artery (CMS/HCC) ADDITIONAL CLINICAL INFORMATION: Ordering Provider Reason For Exam: [facility] COMPARISON: Multiple prior studies, most recently CT [...] effacement, effacement of theright lateral ventricle, and dbyil-hf-jxly midline shift measuring up to 4 mm [...] prior. > Dictated by Bassam Jovel M.D. (residential sales) I, Gonzalez Velasco MD have personally reviewed [...] body. Report dictated by Royer Stovall MD (residential sales). I, Amanda Prieto MD have personally reviewed [...] DATE/TIME OF EXAM: 10/19/2022 8:16 AM, LOCATION [facility] INDICATION: Code Stroke ADDITIONAL CLINICAL [...] DATE/TIME OF EXAM: 10/19/2022 8:04 AM, LOCATION [facility] INDICATION: Code Stroke ADDITIONAL CLINICAL [...] common femoral thrombectomy and patch angioplasty by [facility] surgery - Vascular Sx reconsulted for hematoma: [...] chest, abdomen and pelvis with contrast: -- alfonzo PEG fluid collection: Discussing with IR. -- [...] 84 18 123/78 Recent Labs Component Name 11/12/2253111/11/22170211/10/22 0223 NA 136 140 136 CL 105 108* 105 CO2 21* 22 24 BUN 13 11 13 CREATININE 0.59 0.56 0.52* CALCIUM 7.8* 8.4 8.4 PHOS 2.5* 3.3 3.9 Recent Labs Component Name 11/12/2253111/11/22170211/10/22 2338 10/23/22 0129 10/22/22 0153 WBC 4.8 [...] Cruz MD - 11/12/2022 7:47 AM CDT [facility] Infectious Diseases Progress Note Admitted on: 10/19/2022 7:53 AM Hospital stay: Room: [facility] Attending: Good Antunez MD Reason for ID [...] Intake/Output Summary (Last 24 hours) at 11/12/2022 0741 Last data filed at 11/12/2022 0529 Gross [...] LABS CBC: Recent Labs Component Name 11/12/22 0511/11/22170211/10/22 2338 10/23/22 0129 10/22/22 0153 WBC 4.8 5.0 7.1 - - RBC 3.27* 3.41* 3.22* - - HGB 9.4* 9.9* 9.5* - - HCT 30.2* 31.9* 29.7* - - MCV 92.4 93.5 92.2 - - PLT - - - - 199 - = values in this interval not displayed. BMP: Recent Labs Component Name 11/12/22 0532 11/11/22 17011/10/22 0223 11/09/22 0654 10/20/22 0302 10/19/22 0824 [...] LP with CSF analysis to eval of CONSTRUCTION CODE ADMINISTRATOR infection, neurosurgery initially had less suspicion of CONSTRUCTION CODE ADMINISTRATOR infection, LP was deferred. Discussed again today. [...] ??? S/p 10/20 with neurosurgery for R sided??qgxdzp-yfzzzlr-tbauoklx??decompressive sonya-craniectomy??for??treatment of??refractory intracranial hypertension. 7. Renal function: [...] team. Angelica Cruz M.D. Infectious Diseases Pager [phone] * Ventura Zendejas Jr., PharmD - 11/12/2022 [...] 1980 Date of Admission: 10/19/2022 Hospital Day: Subjective Consuelo Darby is a 41yo woman [...] On heparin gtt. Warfarin bridge. INR 1.4. 9/: underwent gastric erosion for abscess underlying peg [...] (36.4 ??C) -- 77 -- 97 % 09/02/23 0057 121/70 -- -- 102 -- -- 11/11/22 0013 130/74 -- -- 100 -- 94 % 11/10/222340 126/68 -- -- 104 -- -- 11/10/225 125/79 -- -- 107 -- -- 11/10/220 138/80 -- -- (!) 115 -- 95 % 11/10/222241 133/81 -- -- (!) 110 -- 94 % 11/10/222232 138/74 99.9 ??F (37.7 ??C) -- (!) 118 -- 96 % 11/10/222154 118/65 -- -- 102 19 93 % 11/10/222149 119/63 -- -- 103 19 92 % 11/10/222144 116/59 -- -- 105 19 91 % 11/10/222139 119/59 -- -- 108 20 90 % [...] -- -- 105 21 91 % 11/10/22 184 -- -- -- 102 18 95 % 11/10/22 183 115/59 (!) 102 ??F (38.9 ??C) Axillary [...] bilaterally ? Labs: Recent Labs Component Name 11/10/22233711/10/2222311/08/22234510/23/22 0129 10/22/22 0153 WBC 7.1 3.6 5.2 - - RBC 3.22* 3.23* 3.59* - - HGB 9.5* 9.4* 10.4* - - HCT 29.7* 29.4* 33.1* - - PLT - - - - 199 - = values in this interval not displayed. Recent Labs Component Name 11/10/2222211/08/22234511/07/222233 NA 136 141 141 CL 105 107 108* CO2 24 24 22 BUN 13 9 8 CREATININE 0.52* 0.45* 0.53* CALCIUM 8.4 8.5 8.6 No results for input(s): MG in the last 73905 hours. Recent Labs Component Name 11/10/2222211/08/22234511/07/222233 PHOS 3.9 3.8 4.3 Recent Labs Component Name 11/11/22 0928 11/10/22 2338 11/10/22 0223 11/07/22 0305 11/06/22 2312 PT 16.2* 15.6* 20.5* - - INR 1.3 1.3 1.8 - - PTT 129.8* 36.3 - - 63.4* - = values in this interval not displayed. No results for input(s): A1C in the last 28544 hours. Recent Labs Component Name 10/20/22 0302 06/15/22 0757 CHOL 173 204* HDL 42 37* LDLCALC 91 117* TRIG 201* 251* Recent Labs Component Name 11/06/22 0136 TSH 1.682 No results for input(s): CKMB, CKTOTAL, CKMB, TROPONINI, BNP in the last 01055 hours. MRI BRAIN WWO CONTRAST Result Date: 11/10/2022 PROCEDURE: MRI BRAIN WWO CONTRAST, DATE/TIME OF EXAM: 11/09/2022 11:51 PM, LOCATION [facility] INDICATION: R50.9: Fever, unspecified fever [...] of the right lateral ventricle and the omnbj-bc-vlps midline shift. Extensive susceptibility artifacts along the [...] DATE/TIME OF EXAM: 11/07/2022 5:25 PM, LOCATION [facility] INDICATION: R50.9: Fever, unspecified fever [...] chest. > Dictated by Tim Major MD (residential sales). I, Alexx Lopez have personally reviewed and [...] Time to Reperfusion: 9:54 Final TICI: 2b Rigging Engineer: Dr. Mitali Walter Liner Roll Changer(s): Isak Monte Vessels: Ultrasound Guided Access of Femoral Artery Ultrasound Guided Access of Radial Artery Arterial line placement in the right radial artery Right Common Carotid Artery Angiogram: Cerebral Intracranial Catheterization Mechanical Thrombectomy with Retrievable Stent and Reperfusion Catheter Angiography Through the Existing Catheter Right Femoral Artery Angiogram Anesthesia: General Anesthesia was performed and monitored by an attending Anesthesiologist and their social human services assistants throughout the entirety of the case Procedural [...] artery demonstrated a patent vessel. A 5 fijian sheath was placed in the radial artery [...] Following a series of exchanges, a 8 Georgian sheath sheath was placed in the right femoralartery. A Guide and a 6 Georgian Penumbra Select Serrano 2 catheter along with [...] system. Hemostasis was achieved using a 8 Georgian Angio-Seal closure device. Hemostasis was immediate at [...] DATE/TIME OF EXAM: 11/05/2022 5:28 PM, LOCATION [facility] INDICATION: R50.9: Fever, unspecified fever [...] pattern. Report dictated by Mc Castro MD, (residential sales). I, Pepe Gonzalez MD have personally reviewed [...] DATE/TIME OF EXAM: 11/05/2022 9:38 AM, LOCATION [facility] INDICATION: R50.9: Fever, unspecified fever cause ADDITIONAL CLINICAL INFORMATION: Ordering Provider Reason For Exam: consolidation COMPARISON: Chest radiograph 10/29/2022. FINDINGS/IMPRESSION: Previously seen feeding tube has been removed. These no confluent consolidation, pleural effusion, or pneumothorax is noted. The cardiomediastinal silhouette is stable. No acute osseous abnormality is noted. Report dictated by Christopher Tobin MD, MD (residential sales). I, HEATHER FREGOSO MD have personally reviewed and interpreted this examination/study. > Interpreting Provider: HEATHER FREGOSO MDon 11/05/2022 2:[address] ABDOMEN WO CONTRAST Result Date: 11/02/2022 PROCEDURE: CT ABDOMEN WO CONTRAST, DATE/TIME OF EXAM: 2022 6:47 PM, LOCATION [facility] INDICATION: Z93.1: Presence of externally [...] queried.. > Dictated by Tim Major MD (residential sales). I, Pepe Gonzalez MD have personallyreviewed and interpreted this examination/study. > Interpreting Provider: Pepe Gonzalez MD on 11/02/2022 1:[address] ABDOMEN PELVIS W CONTRAST Result Date: 10/31/2022 PROCEDURE: CT ABDOMEN PELVIS W CONTRAST, DATE/TIME OF EXAM: 10/31/2022 10:16 AM, LOCATION [facility] INDICATION: I33.0: Aortic valve vegetation [...] DATE/TIME OF EXAM: 10/30/2022 8:22 PM, LOCATION: [facility] HISTORY: I63.511: Right middle cerebral artery stroke [...] frontal gyrus/frontal operculum, consistent with an evolving vactzumu-bt-rotxrkr infarct. 4.No significant midline shift. Similar-appearing size and configuration of the ventricles without evidence of hydrocephalus. Basal cisterns are patent. 5.No other convincing change. Partially imaged left nasoenteric tube. > Interpreting Provider: Amanda Real MD, PhD on 10/31/2022 1:26 AM [facility] ANGIO TEAM Result Date: 10/30/2022 Fluoroscopy was used for this exam in the OR. Please see the Operative report. XR CHEST 1VW PORTABLE Result Date: 10/29/2022 PROCEDURE: XR CHEST 1VW PORTABLE, DATE/TIME OF EXAM: 10/29/2022 10:29 AM, LOCATION [facility] INDICATION: R09.02: Hypoxia ADDITIONAL CLINICAL INFORMATION: Ordering Provider Reason For Exam: evaluate for hypoxia COMPARISON: Chest x-ray from 10/27/2022 FINDINGS/IMPRESSION: Enteric tube is seen coursing over the diaphragm without visualization of the distal tip. There is no focal consolidation, pleural effusion, or pneumothorax. The cardiomediastinal silhouette is normal. Report dictated by Jacques Russell DO (residential sales). Jacques Ornelas DO have personally reviewed and interpreted this examination/study. 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 Report dictated by Jacques Russell DO (residential sales). Jacques Ornelas DO have personally reviewed and interpreted this examination/study. 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 FINDINGS/IMPRESSION: Enteric tube courses below the diaphragm with the distal tip superimposing the antropyloric region. Report dictated by Martell Shetty MD (residential sales). I, Jacques Cole DO have personally reviewed and interpreted this examination/study. > Interpreting Provider: Jacques Cole DO on 10/28/2022 12:[address] HEAD WO CONTRAST Result Date: 10/28/2022 PROCEDURE: CT HEAD WO CONTRAST, DATE/TIME OF EXAM: 10/28/2022 5:28 AM, LOCATION [facility] INDICATION: Z91.89: At high risk for bleeding [...] report is dictated by Kayla Stevenson MD (residential sales) 1 I, Lonnie Rae MD have personally reviewed and interpreted this examination/study. > Interpreting Provider: Lonnie Rae MD on 10/28/2022 9:15 AM XR CHEST 1VW PORTABLE Result Date: 10/27/2022 PROCEDURE: XR CHEST 1VW PORTABLE, DATE/TIME OF EXAM: 10/27/2022 10:19 AM, LOCATION [facility] INDICATION: D72.829: Leukocytosis, unspecified type ADDITIONAL CLINICAL INFORMATION: Ordering Provider Reason For Exam: any concern for pneumonia COMPARISON: Chest radiograph dated 10/25/2022. FINDINGS/IMPRESSION: Enteric tube courses below the diaphragm and out of the vqadi-fb-ifit. RUQ surgical clips are present. No focal consolidation. No pleural effusion or pneumothorax. The cardiomediastinal silhouette is normal. Report dictated by Agnes Olmos DO (residential sales). I, Pepe Gonzalez MD have personally reviewed and interpreted this examination/study. > Interpreting Provider: Pepe Gonzalez MD on 10/27/2022 2:[address] HEAD WO CONTRAST Result Date: 10/27/2022 PROCEDURE: CT HEAD WO CONTRAST, DATE/TIME OF EXAM: 10/27/2022 5:54 AM, LOCATION [facility] INDICATION: I63.511: Right middle cerebral [...] DATE/TIME OF EXAM: 10/25/2022 9:41 AM, LOCATION [facility] INDICATION: I63.511: Right middle cerebral artery stroke ([facility]/HCC) ADDITIONAL CLINICAL INFORMATION: Ordering Provider Reason For Exam: Atlectasis/mucus plugging Comparison: Chest x-ray from10/23/2022, and CT chest, abdomen, pelvis from same day FINDINGS/IMPRESSION: Interval removal of theendotracheal tube. Enteric tube courses below the diaphragm and out of the jpxjc-os-bdbe. There is severe left rotation of the patient in this study. There is no focal consolidation, pleural effusion, or pneumothorax. The left upper lobe pulmonary nodule noted on chest CT from same day is not visualized on this plain film. The cardiomediastinal silhouette is normal. The visible bony thorax is intact. Report dictated by Royer Stovall MD (residential sales). IAlexx have personally reviewed and interpreted this examination/study. > Interpreting Provider: Alexx Lopez on 10/26/2022 2:[address] HEAD WO CONTRAST Result Date: 10/26/2022 PROCEDURE: CT HEAD WO CONTRAST, DATE/TIME OF EXAM: 10/26/2022 4:55 AM, LOCATION [facility] INDICATION: I63.511: Right middle cerebral artery stroke ([facility]/HCC) ADDITIONAL CLINICAL INFORMATION: Ordering Provider Reason For [...] report is dictated by Miranda Bowen MD (residential sales) I, Oriana Suarez MD have personally reviewed and interpreted this examination/study. > Interpreting Provider: Oriana Suarez MD on 38:[address] CHEST ABDOMEN PELVIS W CONT Result Date: 10/25/2022 PROCEDURE: CT CHEST ABDOMEN PELVIS W CONT, DATE/TIME OF EXAM: 10/25/2022 12:56 PM, LOCATION [facility] INDICATION: I63.511: Right middle cerebral artery [...] verification. > Dictated by Clarisa Cantrell MD (residential sales). I, Alexx Lopez have personally reviewed and interpreted this examination/study. > Interpreting Provider: Alexx Lopez on 10/25/2022 4:[address] HEAD WO CONTRAST Result Date: 10/25/2022 PROCEDURE: CT HEAD WO CONTRAST, DATE/TIME OF EXAM: 10/25/2022 12:56 PM, LOCATION [facility] INDICATION: I63.511: Right middle cerebral artery [...] report is dictated by Miranda Bowen MD (residential sales) I, Joni Fabian MD have personally reviewed and interpreted this examination/study. > Interpreting Provider: Joni Fabian MD on 10/25/2022 2:[address] CARDIAC ANGIO STRUCT MORPH Result Date: 10/25/2022 PROCEDURE: CT CARDIAC ANGIO STRUCT MORPH, DATE/TIME OF EXAM: 10/23/2022 3:08 PM, LOCATION [facility] INDICATION: I63.411: Acute cerebrovascular accident [...] DATE/TIME OF EXAM: 10/24/2022 2:04 PM, LOCATION [facility] INDICATION: R47.1: Dysarthria ADDITIONAL CLINICAL INFORMATION: Ordering Provider ReasonFor Exam: ngt placement COMPARISON: Portable KUB dated 10/23/2022 FINDINGS/IMPRESSION: The enteric tube courses below the diaphragm with tip superimposing the gastric pyloric region. Drafted by Agnes Olmos DO (residential sales). I, Vanessa Kumar MD have personally reviewed and interpreted this examination/study. > Interpreting Provider: Vanessa Kumar MD on 10/24/2022 2:17 PM MRI BRAIN WWO CONTRAST Result Date: 10/24/2022 PROCEDURE: MRI BRAIN WWO CONTRAST, DATE/TIME OF EXAM: 10/24/2022 10:56 AM, LOCATION [facility] INDICATION: I63.411: Acute cerebrovascular accident [...] right lateral ventricle, and approximately 3-4 mm osadn-pl-lfou midline shift at the level of the [...] right lateral ventricle, and approximately 3-4 mm wjxsp-zm-jxku midline shift, grossly similar to the prior. 3.Mild dilation of the left lateral ventricle may represent subtle left ventricular entrapment, overall grossly similar to prior. 4.Additional multiple foci of abnormal diffusion within the left frontotemporal lobes with associated T2 FLAIR hyperintensity representing additional small acute to subacute infarcts, likely of cardioembolic etiology. Findings communicated to Dr. Mohr by Dr. Mjaor at 1138 hours on 10/24/2022 with readback comprehension and verification. Report dictated by Tim Major MD (residential sales). IJasper MD have personally reviewed and interpreted this examination/study. 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 Endotracheal tube terminates in the midthoracic trachea. There is no focal consolidation. No pleural effusion or pneumothorax. The cardiomediastinal silhouette is normal. No acute osseous abnormality. Report dictated by Agnes Olmos DO (residential sales). Vanessa Ornelas MD have personally reviewed and [...] DATE/TIME OF EXAM: 10/23/2022 1:53 PM, LOCATION [facility] INDICATION: R47.1: Dysarthria ADDITIONAL CLINICAL INFORMATION: Ordering Provider ReasonFor Exam: NGT placement COMPARISON: Portable KUB dated 10/20/2022 FINDINGS/IMPRESSION: The enteric tube courses below the diaphragm with tip superimposing the stomach. Drafted by Agnes Olmos DO (residential sales). Vanessa Ornelas MD have personally reviewed and interpreted this examination/study. > Interpreting Provider: Vanessa Kumar MD on 10/24/2022 8:[address] HEAD WO CONTRAST Result Date: 10/23/2022 PROCEDURE: CT HEAD WO CONTRAST, DATE/TIME OF EXAM: 10/23/2022 5:53 AM, LOCATION [facility] INDICATION: I63.511: Right middle cerebral [...] The report is dictated by Miranda Bowen MD(residential sales) IJasper MD have personally reviewed and interpreted this examination/study. > Interpreting Provider: Jasper Sifuentes MD on 10/23/2022 9:[address] HEAD WO CONTRAST Result Date: 10/22/2022 PROCEDURE: CT HEAD WO CONTRAST, DATE/TIME OF EXAM: 10/22/2022 5:35 AM, LOCATION [facility] INDICATION: I63.511: Right middle cerebral [...] hemorrhage. Report dictated by Lorenzo Horta MD (residential sales). Lonnie Ornelas MD have personally reviewed and interpreted this examination/study. > Interpreting Provider: Lonnie Rae MD on 10/22/2022 3:10 PM XR CHEST 1VW PORTABLE Result Date: 10/21/2022 PROCEDURE: XR CHEST 1VW PORTABLE, DATE/TIME OF EXAM: 10/21/2022 8:53 AM, LOCATION [facility] INDICATION: R53.1: Weakness ADDITIONAL CLINICAL INFORMATION: Ordering [...] Report dictated by Christopher Tobin MD, MD (residential sales). 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 > Dictated by Bassam Jovel M.D. (residential sales) I, Gonzalez Velasco MD have personally reviewed [...] body. Report dictated by Royer Stovall MD (residential sales). I, Amanda Prieot MD have personally reviewed and interpreted this [...] DATE/TIME OF EXAM: 10/19/2022 8:16 AM, LOCATION [facility] INDICATION: Code Stroke ADDITIONAL CLINICAL [...] DATE/TIME OF EXAM: 10/19/2022 8:04 AM, LOCATION [facility] INDICATION: Code Stroke ADDITIONAL CLINICAL [...] thrombectomy and patch angioplasty by vas surgery - Vascular Sx reconsulted for hematoma: [...] 124/76 Pulse: 77 90 84 83 Resp: Temp: 97.5 ??F (36.4 ??C) 98.8 ??F [...] 360 325 BMP Recent Labs Component Name 11/10/2222211/08/22234511/07/22223311/06/222311 NA 136 [...] 44 56 Coag Recent Labs Component Name 11/11/2228 11/10/22233711/10/2222211/09/22 0237 11/07/22 0305 11/06/22 2312 11/06/22 1830 PT 16.2* 15.6* 20.5* 18.9* - - - PTT 129.8* 36.3 - - - 63.4* 68.6* INR 1.3 1.3 1.8 1.6 - - - - = values in this interval not displayed. Urine: UA Recent Labs Component Name 11/10/22 0223 11/08/22 2346 11/07/22 2234 11/06/22 2312 11/06/22 0136 11/05/22 1254 10/28/22 0125 10/27/22 1208 [...] Haleigh Narayan - 11/11/2022 12:00 PM CDT [facility] Physical Medicine and Rehabilitation Occupational Therapy Splint [...] Labs: Recent Labs Component Name 11/10/22 2338 11/10/22 0224 11/10/22 0223 11/09/22 0237 11/08/22 2346 11/08/22 [...] chest. > Dictated by Tim Major MD (residential sales). IAlexx have personally reviewed and interpreted this [...] pattern. Report dictated by Mc Castro MD, (residential sales). Pepe Ornelas MD have personally reviewed and [...] queried.. > Dictated by Tim Major MD (residential sales). Pepe Ornelas MD have personallyreviewed and interpreted [...] frontal gyrus/frontal operculum, consistent with an evolving epykeokt-jt-ozbnrtl infarct. 4.No significant midline shift. Similar-appearing size [...] report is dictated by Kayla Stevenson MD (residential sales) 1 I, Lonnie Rae MD have personally [...] report is dictated by Miranda Bowen MD (residential sales) Oriana Ornelas MD have personally reviewed and [...] verification. > Dictated by Clarisa Cantrell MD (residential sales). Alexx Ornelas have personally reviewed and interpreted [...] report is dictated by Miranda Bowen MD (residential sales) Joni Ornelas MD have personally reviewed and [...] right lateral ventricle, and approximately 3-4 mm yytin-tl-fkok midline shift, grossly similar to the prior. [...] verification. Report dictated by Tim Major MD (residential sales). Jasper Ornelas MD have personally reviewed and [...] The report is dictated by Miranda Bowen MD(residential sales) Jasper Ornelas MD have personally reviewed and [...] hemorrhage. Report dictated by Lorenzo Horta MD (residential sales). Lonnie Ornelas MD have personally reviewed and [...] prior. > Dictated by Bassam Jovel M.D. (residential sales) Gonzalez Ornelas MD have personally reviewed and [...] patient's care provider, Dr. Hester by Dr. Rea via telephone at 8:19 AM on 10/19/2022 [...] on 10/19/2022 8:15 AM Procedure and Consults [facility] (From admission, onward) Start Ordered 11/10/22 1245 [...] 10/28/22 0150 10/27/22 1745 IP CONSULT TO HAND BUTTON SPLITTER ONCE Provider: (Not yet assigned) 10/27/22 1733 [...] 10/19/22 0902 10/19/22 0900 IP CONSULT TO HAND BUTTON SPLITTER ONCE Provider: (Not yet assigned) 10/19/22 0902 10/19/22 0900 IP CONSULT TO CASE MANAGEMENT ONCE Provider: (Not yet assigned) 10/19/22 0902 10/19/22 0900 IP CONSULT TO NUTRITIONAL SERV ONCE Provider: (Not yet assigned) 10/19/22 0902 10/19/22 0900 CONSULT TO REHAB ONCE Provider: (Not yet assigned) 10/19/22 0902 10/19/22 0845 IR INTRACRANIAL MECH THROMBECT RAD ONE TIME 10/19/22 0843 10/19/22 0800 CONSULT TO SHIP DESIGN TEACHER ONCE Provider: (Not yet assigned) 10/19/22 0756 10/19/[address] BRAIN - Stroke RAD ONE TIME 10/19/22 0756 10/19/22799 CT ANGIO BRAIN NECK STROKE RAD ONE TIME 10/19/22755 Report Endoscopy POC Date Value Ref Range [...] needle insertion. The externally removable 24 Fr Ramez-m2p-labs gastrostomy tube was lubricated. The G-tube was [...] non-darden portions. Procedure Code(s): --- Professional --- 12414, Esophagogastroduodenoscopy, flexible, transoral; with directed placement of percutaneous gastrostomy tube Diagnosis Code(s): --- Professional --- K44.9, Diaphragmatic hernia without obstruction or gangrene K29.60, Other gastritis without bleeding R13.12, Dysphagia, oropharyngeal phase R29.818, Other symptoms and signs involving the nervous system Z43.1, Encounter for attention to gastrostomy CPT copyright 2021 [employer]. All rights reserved. The codes documented in this report are preliminary and upon [facility]pl[facility] chemist review may be revised to meet current compliance requirements. Khanh Metz MD 2022 3:26:58 PM Note Initiated On: 2022 2:14 PM Number of Addenda: [address] [address] 08/25/2021 Final _ Patient Name: Consuelo Darby Procedure Date: 08/25/2021 9:58 AM Date of : 1980 Admit Type: Outpatient Age: 40 Room: ROOM 1 Gender: Female Attending MD: Sathya Foster MD _ Procedure: Colonoscopy Indications: High risk colon cancer surveillance: Personal history of colonic polyps, Last colonoscopy: 2011 Providers: Sathya Foster MD, Tia Rico RN, Zeinab Marina RN, Marlayna F. Ant, ASSET MANAGEMENT COORDINATOR (Anesthesia Staff) Medicines: Propofol per Anesthesia Complications: [...] the patient. Procedure Code(s): --- Professional --- 95000, Colonoscopy, flexible; with biopsy, single or multiple --- Technical --- 86661, Colonoscopy, flexible; with biopsy, single or multiple Diagnosis Code(s): --- Professional --- Z86.010, Personal history of colonic polyps K63.5, Polyp of colon K57.30, Diverticulosis of large intestine without perforation or abscess without bleeding --- Technical --- Z86.010, Personal history of colonic polyps K63.5, Polyp of colon K57.30, Diverticulosis of large intestine without perforation or abscess without bleeding CPT copyright 2019 [employer]. All rights reserved. The codes documented in this report are preliminary and upon hplc chemist review may be revised to meet current [...] PGY IV Division of Gastroenterology and Hepatology [facility] Associated attestation - Carlos West MD - 11/11/2022 3:54 PM CDT I have seen and examined the patient with the Fellow and I agree with the findings and plan of careas documented by the Fellow. Continue antibiotics per ID recommendations Carlos West MD PhD laborer beam house Director, Division of Gastroenterology and Hepatology Co-Director, [facility] * Good Antunez MD [...] chest, abdomen and pelvis with contrast: -- alfonzo PEG fluid collection: Discussing with IR. -- [...] 11/10/222099 -- (!) 113 (!) 33 129/58 11/10/222054 99.4 ??F (37.4 ??C) (!) 114 26 136/41 11/10/22 1855 -- 105 21 117/69 11/10/22 184 -- 102 18 -- 11/10/22 1839 (!) 102 ??F (38.9 ??C) 105 20 115/59 11/10/22 1501 98.7 ??F (37.1 ??C) 104 -- 119/69 11/10/22 1222 (!) 100.3 ??F (37.9 ??C) (!) 110 -- 129/51 11/10/22 0933 -- 95 -- -- 11/10/22 0854 97.4 ??F (36.3 ??C) 97 -- 103/53 Recent Labs Component Name 11/10/2222211/08/22234511/07/224 NA 136 141 141 CL 105 107 108* CO2 24 24 22 BUN 13 9 8 CREATININE 0.52* 0.45* 0.53* CALCIUM 8.4 8.5 8.6 PHOS 3.9 3.8 4.3 Recent Labs Component Name 11/10/22 2338 11/10/2222311/08/22234510/23/22 0129 10/22/22 0153 WBC 7.1 3.6 5.2 [...] 6.0* EAG 126 Recent Labs Component Name 11/10/22 2338 11/10/22 0224 11/08/22 2346 10/27/22202810/27/22 0054 PLTCOUNT 297 302 360 - 519* PLATELET - - - - Occasional* - = values in this interval not displayed. * Sylvia Wyman, PT - 11/11/2022 8:29 AM CDT [facility] Department of Physical Medicine & Rehabilitation Progress Note Patient: Consuelo Darby [facility] Record Number: [id number] Date of : 1980 Age: [age] year old 11/11/22 0829 Therapy on Hold Therapy on Hold Surgery;New Order Required for Therapy * Haleigh Narayan - 11/11/2022 8:07 AM CDT 11/11/22 0800 Therapy on Hold Therapy on Hold Surgery;New Order Required for Therapy * Shania Arce SLP - 11/11/2022 7:43 AM CDT [facility] Department of Physical Medicine & Rehabilitation Progress Note Patient: Consuelo Darby [facility] Record Number: [id number] Date of : 1980 Age: [age] year old 11/11/22 0700 Therapy on Hold Therapy on Hold Surgery;New Order Required for Therapy Barb Lopes MS [facility]MULTI SITE LEASING CONSULTANT Speech Language Pathologist * Maicol Quiroz DO [...] Troy OT - 11/10/2022 3:[address] [facility] Physical Medicine and Rehabilitation Occupational Therapy Progress Note Patient: Consuelo Darby Med Record Number: [id number] Date of : 1980 Age: [age] year old PPE worn by staff: gloves;mask - surgical appliances salesperson: Cheli Recommendations: Discharge OT Discharge Recommendations: Patient [...] Appearance: Pt in bed upon [facility], sister present in room during session. LDA: [...] splint fitting appropriately, skin integrity intact. Modified Maryann: Current Modified Wetmore Score: 5 AM-PAC 6 Clicks Daily Activity [...] with good endurance and with minimal pain Jail Goal(s): Patient to discharge to appropriate next [...] Otoole MD - 11/10/2022 2:32 PM CDT [facility] Infectious Diseases Progress Note Admitted on: 10/19/2022 7:53 AM Hospital stay: Room: 522/ Attending: Jaime Drew MD Reason for ID [...] NaCl, , Last Rate: 100 mL/hr at 11/10/22 1353 PRN Medications ??? 0.9% NaCl ??? [...] mood/affect LABS CBC: Recent Labs Component Name 11/10/2222311/08/226 11/07/22223310/23/22 0129 10/22/22 0153 WBC 3.6 5.2 4.7 - - RBC 3.23* 3.59* 3.18* - - HGB 9.4* 10.4* 9.2* - - HCT 29.4* 33.1* 29.5* - - MCV 91.0 92.2 92.8 - - PLT - - - - 199 - = values in this interval not displayed. BMP: Recent Labs Component Name 11/10/2222211/09/2265311/08/22234511/07/22223310/20/22 0302 10/19/22 0824 06/15/22 0757 NA 136 [...] 0.52 mg/dL (L)). Recent Labs Component Name 11/09/2254 10/19/2282306/15/22 0757 ALT 77* 16 9 AST [...] Cruz MD - 11/11/2022 9:42 AM CDT [facility] Infectious Diseases Attending Note Documentation Date/Time: 11/10/2022, [...] LP with CSF analysis to eval of CONSTRUCTION CODE ADMINISTRATOR infection. Personally discussed with neurology team, they [...] S/p 10/20 with neurosurgery for R sided zutrlp-ncrrlyr-emoyrnot decompressive sonya-craniectomy for treatment of refractory intracranial hypertension. Transaminitis. Renal function: Estimated Creatinine Clearance: 161 mL/min (A) (by C-G formula based on SCr of 0.52mg/dL (L)). Plan/Recommendations: - Start metronidazole. Continue IV vancomycin, cefepime and doxycycline. - Follow blood cultures until final - Consider LP with CSF analysis to eval of CONSTRUCTION CODE ADMINISTRATOR infection. - Monitor right groin change. If [...] chest, abdomen and pelvis with contrast: -- alfonzo PEG fluid collection: Discussing with IR. -- [...] -1650 ml Labs: Recent Labs Component Name 10/20/22 0302 06/15/22 0757 CHOL 173 204* TRIG 201* 251* HDL 42 37* LDLCALC 91 117* Recent Labs Component Name 10/20/22 1015 HGBA1C 6.0* Recent Labs Component Name 11/10/22 02211/08/22 2346 11/07/22 2234 11/06/22 2312 NA 136 141 141 140 POTASSIUM 3.6 3.9 3.6 3.6 CL 105 107 108* 108* CO2 24 24 22 22 BUN 13 9 8 8 CREATININE 0.52* 0.45* 0.53* 0.46* CALCIUM 8.4 8.5 8.6 8.5 MAGNESIUM 2.0 2.0 2.8* 2.0 PHOS 3.9 3.8 4.3 4.3 Recent Labs Component Name 11/10/2222311/08/22 2346 11/07/22 2234 11/06/22 2312 WBC 3.6 5.2 4.7 4.7 HGB 9.4* 10.4* 9.2* 9.3* HCT 29.4* 33.1* 29.5* 29.5* PLTCOUNT 302 360 325 195 RBC 3.23* 3.59* 3.18* 3.20* Recent Labs Component Name 11/10/2222211/09/22 0237 11/08/22 0254 11/07/22 0305 11/06/22 2312 [...] Date/Time RESPIRATORY PANEL WITH SARS-COV-2 BY PCR ([facility]) [[id number]] (Normal) Collected: 11/05/22 1310 Lab Status: Final [...] via the [place] Pathway. CULTURE URINE [[id number]] (Normal) Collected: 11/05/22 1307 Lab Status: Final result Specimen: Urine Cath Straight Updated: 11/06/22 1617 Culture Urine No growth (<100 CFU/mL) CULTURE BLOOD [[id number]] (Normal) Collected: 11/05/22 1054 Lab Status: Final result Specimen: Blood Peripheral Updated: 11/10/22 1400 Culture No growth day 5 CULTURE URINE [[id number]] (Normal) Collected: 10/27/22 1208 Lab Status: Final result Specimen: Urine Clean Catch Updated: 10/28/22 2236 Culture Urine No growth (<100 CFU/mL) CULTURE BLOOD FUNGUS [[id number]] (Normal) Collected: 10/27/22 1158 Lab Status: Preliminary result Specimen: Blood Peripheral Updated: 11/06/22 0848 Culture No fungus isolated CULTURE BLOOD AFB [[id number]] (Normal) Collected: 10/27/22 1158 Lab Status: Preliminary result Specimen: Blood Peripheral Updated: 11/06/22 1135 Culture No acid-fast bacillus isolated BARTONELLA SPECIES PCR [[id number]] Collected: 10/27/22 1158 Lab Status: Final result [...] developed and its performance characteristics determined by [facility]. It has not been cleared or approved by the US Food and Drug Administration. This test was performed in a CLIA certified laboratory and is intended for clinical purposes. Performed By: [facility] [address] [place] [address] Film Spooler: Boo Bond MD, PhD CLIA Number: [id number] CULTURE BLOOD [[id number]] (Normal) Collected: 10/25/22 0900 Lab Status: Final result Specimen: Blood Peripheral Updated: 10/30/22 1330 Culture No growth day 5 CULTURE BLOOD [[id number]] (Normal) Collected: 10/24/22 1313 Lab Status: Final result Specimen: Blood Peripheral Updated: 10/29/22 1632 Culture No growth day 5 MRSA DNA PCR [[id number]] (Normal) Collected: 10/23/22 1234 Lab Status: Final result Specimen: Microbiology from Nasal Updated: 10/23/22 2044 MRSA DNA by PCR Not detected Narrative: Methicillin-resistant Staphylococcus aureus (MRSA) DNA is not detected (presumed not colonized withMRSA). CULTURE BLOOD [[id number]] (Normal) Collected: 10/23/22 1216 Lab Status: Final result Specimen: Blood Peripheral Updated: 10/28/22 1702 Culture No growth day 5 CULTURE BLOOD [[id number]] (Normal) Collected: 10/23/22 1205 Lab Status: Final [...] presence of the primary team staff, residents, PT/OT/MULTI SITE LEASING CONSULTANT and CM/SW. Jaime Drew MD Vascular and [...] Isi Aguirre MD Vascular Surgery * Humaira Fernandes SLP - 11/10/2022 1:45 PM CDT [facility] Department of Physical Medicine & Rehabilitation Progress Note Patient: Consuelo Darby Med Record Number: [id number] Date of : 1980 Age: [age] year old 11/10/22 1300 Missed Visit Missed Visit Other (Comment) Attempted 2x to see patient for dysphagia tx, patient working with other therapy disciplines. ST will continue to follow * Maria Luisa Scott APRN-BISQUE GRADER - 11/10/2022 12:07 PM CDT Puentes Placement [...] uretheral opening 3 separate times. A 16 Georgian Silicone puentes catheter was covered with sterile [...] catheter. Please reference table below. Level Puentes Griggs Sample Patient 1 Teaching Puentes (i.e. Medical student, Tech, RN) - Female without urologic history 2 Registered Nurse, Any Physician, Any Advanced Practitioner - Male >65 yo 3 Charge or Experienced Nurse, Urology COMBINE MECHANIC, Urologist - Multiple failed attempts 4 Urologist - Required Cystoscopy, simple 5 Urologist - Required Cystoscopy, complex Patient has latex allergy- silicone catheter was used. Plan: - 16F silicone puentes placed - Keep puentes in place until VT in urology clinic - F/u on 12/06 with Dottie Monreal NP - Family at bedside and updated on [...] [place], PT - 11/10/2022 10:[address] [facility] Physical Medicine and Rehabilitation Physical Therapy Progress Note Patient: Consuelo Darby [facility] Record Number: [id number] Date of : 1980 Age: [age] year [...] treatment using a 'yes' head nod. Patient's rpiuay-xs-kbc present and provides positive encouragement to patient [...] Steady, sitting and standing balance training Modified Wetmore: Current Modified Wetmore Score: 5 AM-PAC 6 Clicks Mobility Raw [...] EOB x10 minutes with minimal assist ?? Jail Goal(s): Patient to discharge to appropriate next [...] Rehab Facility: Anticipated level of care provider: [facility] (ALL LOCATIONS): Anticipated Discharge Date: 11/13/22: Discharge Plan: [facility] Rehab once medically ready. Orientation Level: Oriented X4: Family Support (Name and Phone): Extended Emergency Contact Information Primary Emergency Contact: MehnazHi Address: [address] [place] [address] [place] [address] [facility] Relation: Spouse Secondary Emergency Contact: Sandra Disla [facility] Mobile Relation: Mother Transportation at Discharge: Ambulance: [...] alert Labs: Recent Labs Component Name 11/10/22 0224 11/10/22 0223 11/09/22 0237 11/08/22 2346 11/08/22 [...] chest. > Dictated by Tim Major MD (residential sales). I, Alexx Lopez have personally reviewed and interpreted this examination/study. > Interpreting Provider: Alexx Lopez on 11/07/2022 10:30 PM XR ABDOMEN KUB PORTABLE Result Date: 11/06/2022 IMPRESSION: Non-obstructive bowel gas pattern. Report dictated by Mc Castro MD, (residential sales). I, Pepe Gonzalez MD have personally reviewed [...] to rule out progression April Quintana MD Supervisor Sintering Plantlaborer beam house at [facility] [employer] and Advanced Endoscopist Division of Gastroenterology & [...] LUE and LLE ?? Sensory Light Touch REYONLD Noxious Stimuli Symmetric and intact bilaterally ?? Labs: Recent Labs Component Name 11/10/2222311/08/22 2346 11/07/22 2234 10/23/22 0129 10/22/22 0153 [...] results for input(s): MG in the last 66422 hours. Recent Labs Component Name 11/10/2222211/08/22234511/07/222233 PHOS 3.9 3.8 4.3 Recent Labs Component Name 11/10/2222211/09/22 0237 11/08/22 0254 11/07/22 0305 11/06/22 2312 11/06/22 1830 11/06/22 0740 PT 20.5* 18.9* 18.3* - - - - INR 1.8 1.6 1.6 - - - - PTT - - - - 63.4* 68.6* 97.1* - = values in this interval not displayed. No results for input(s): A1C in the last 50641 hours. Recent Labs Component Name 10/20/22 0302 06/15/22 0757 CHOL 173 204* HDL 42 37* LDLCALC 91 117* TRIG 201* 251* Recent Labs Component Name 11/06/22 0136 TSH 1.682 No results for input(s): CKMB, CKTOTAL, CKMB, TROPONINI, BNP in the last [address] ABDOMEN PELVIS W CONTRAST Result [...] DATE/TIME OF EXAM: 11/07/2022 5:25 PM, LOCATION [facility] INDICATION: R50.9: Fever, unspecified fever [...] chest. > Dictated by Tim Major MD (residential sales). I, Alexx Lopez have personally reviewed and [...] Time to Reperfusion: 9:54 Final TICI: 2b Rigging Engineer: Dr. Mitali Walter Liner Roll Changer(s): Isak Monte Vessels: Ultrasound Guided Access of Femoral Artery Ultrasound Guided Access of Radial Artery Arterial line placement in the right radial artery Right Common Carotid Artery Angiogram: Cerebral Intracranial Catheterization Mechanical Thrombectomy with Retrievable Stent and Reperfusion Catheter Angiography Through the Existing Catheter Right Femoral Artery Angiogram Anesthesia: General Anesthesia was performed and monitored by an attending Anesthesiologist and their social human services assistants throughout the entirety of the case Procedural [...] artery demonstrated a patent vessel. A 5 fijian sheath was placed in the radial artery [...] Following a series of exchanges, a 8 Georgian sheath sheath was placed in the right femoralartery. A Guide and a 6 Georgian Proximetryumbra Select Serrano 2 catheter along with a [...] system. Hemostasis was achieved using a 8 Georgian Angio-Seal closure device. Hemostasis was immediate at [...] DATE/TIME OF EXAM: 11/05/2022 5:28 PM, LOCATION [facility] INDICATION: R50.9: Fever, unspecified fever [...] pattern. Report dictated by Mc Castro MD, (residential sales). Pepe Ornelas MD have personally reviewed and [...] DATE/TIME OF EXAM: 11/05/2022 9:38 AM, LOCATION [facility] INDICATION: R50.9: Fever, unspecified fever cause ADDITIONAL CLINICAL INFORMATION: Ordering Provider Reason For Exam: consolidation COMPARISON: Chest radiograph 10/29/2022. FINDINGS/IMPRESSION: Previously seen feeding tube has been removed. These no confluent consolidation, pleural effusion, or pneumothorax is noted. The cardiomediastinal silhouette is stable. No acute osseous abnormality is noted. Report dictated by Christopher Tobin MD, (residential sales). I, HEATHER FREGOSO MD have personally reviewed and interpreted this examination/study. > Interpreting Provider: HEATHER FREGOSO MD on 11/05/2022 2:[address] ABDOMEN WO CONTRAST Result Date: 11/02/2022 PROCEDURE: CT ABDOMEN WO CONTRAST, DATE/TIME OF EXAM: 2022 6:47 PM, LOCATION [facility] INDICATION: Z93.1: Presence of externally [...] queried.. > Dictated by Tim Major MD (residential sales). I, Pepe Gonzalez MD have personallyreviewed and interpreted this examination/study. > Interpreting Provider: Pepe Gonzalez MD on 11/02/2022 1:[address] ABDOMEN PELVIS W CONTRAST Result Date: 10/31/2022 PROCEDURE: CT ABDOMEN PELVIS W CONTRAST, DATE/TIME OF EXAM: 10/31/2022 10:16 AM, LOCATION [facility] INDICATION: I33.0: Aortic valve vegetation [...] DATE/TIME OF EXAM: 10/30/2022 8:22 PM, LOCATION: [facility] HISTORY: I63.511: Right middle cerebral artery stroke [...] frontal gyrus/frontal operculum, consistent with an evolving nxaspqae-ot-kdbksjg infarct. 4.No significant midline shift. Similar-appearing size and configuration of the ventricles without evidence of hydrocephalus. Basal cisterns are patent. 5.No other convincing change. Partially imaged left nasoenteric tube. > Interpreting Provider: Amanda Real MD, PhD on 10/31/2022 1:26 AM [facility] ANGIO TEAM Result Date: 10/30/2022 Fluoroscopy was used for this exam in the OR. Please see the Operative report. XR CHEST 1VW PORTABLE Result Date: 10/29/2022 PROCEDURE: XR CHEST 1VW PORTABLE, DATE/TIME OF EXAM: 10/29/2022 10:29 AM, LOCATION [facility] INDICATION: R09.02: Hypoxia ADDITIONAL CLINICAL INFORMATION: Ordering Provider Reason For Exam: evaluate for hypoxia COMPARISON: Chest x-ray from 10/27/2022 FINDINGS/IMPRESSION: Enteric tube is seen coursing over the diaphragm without visualization of the distal tip. There is no focal consolidation, pleural effusion, or pneumothorax. The cardiomediastinal silhouette is normal. Report dictated by Jacques Russell DO (residential sales). I, Jacques Cole DO have personally reviewed and interpreted this examination/study. 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 Report dictated by Jacques Russell DO (residential sales). Jacques Ornelas DO have personally reviewed and interpreted this examination/study. 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 FINDINGS/IMPRESSION: Enteric tube courses below the diaphragm with the distal tip superimposing the antropyloric region. Report dictated by Martell Shetty MD (residential sales). Jaqcues Ornelas DO have personally reviewed and interpreted this examination/study. > Interpreting Provider: Jacques Cole DO on 10/28/2022 12:[address] HEAD WO CONTRAST Result Date: 10/28/2022 PROCEDURE: CT HEAD WO CONTRAST, DATE/TIME OF EXAM: 10/28/2022 5:28 AM, LOCATION [facility] INDICATION: Z91.89: At high risk for bleeding [...] report is dictated by Kayla Stevenson MD (residential sales) 1 I, Lonnie Rae MD have personally reviewed and interpreted this examination/study. > Interpreting Provider: Lonnie Rae MD on 10/28/2022 9:15 AM XR CHEST 1VW PORTABLE Result Date: 10/27/2022 PROCEDURE: XR CHEST 1VW PORTABLE, DATE/TIME OF EXAM: 10/27/2022 10:19 AM, LOCATION [facility] INDICATION: D72.829: Leukocytosis, unspecified type ADDITIONAL CLINICAL INFORMATION: Ordering Provider Reason For Exam: any concern for pneumonia COMPARISON: Chest radiograph dated 10/25/2022. FINDINGS/IMPRESSION: Enteric tube courses below the diaphragm and out of the ermha-lz-xkhz. RUQ surgical clips are present. No focal consolidation. No pleural effusion or pneumothorax. The cardiomediastinal silhouette is normal. Report dictated by Agnes Olmos DO (residential sales). I, Pepe Gonzalez MD have personally reviewed and interpreted this examination/study. 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 Enteric tube courses below the diaphragm and out of the wcxwh-tv-lybn. There is severe left rotation of the patient in this study. There is no focal consolidation, pleural effusion, or pneumothorax. The left upper lobe pulmonary nodule noted on chest CT from same day is not visualized on this plain film. The cardiomediastinal silhouette is normal. The visible bony thorax is intact. Report dictated by Royer Stovall MD (residential sales). I, Alexx Lopez have personally reviewed and interpreted this examination/study. > Interpreting Provider: Alexx Lopez on 10/26/2022 2:[address] HEAD WO CONTRAST Result Date: 10/26/2022 PROCEDURE: CT HEAD WO CONTRAST, DATE/TIME OF EXAM: 10/26/2022 4:55 AM, LOCATION [facility] INDICATION: I63.511: Right middle cerebral [...] report is dictated by Miranda Bowen MD (residential sales) I, Oriana Suarez MD have personally reviewed and interpreted this examination/study. > Interpreting Provider: Oriana Suarez MD on 38:[address] CHEST ABDOMEN PELVIS W CONT Result Date: 10/25/2022 PROCEDURE: CT CHEST ABDOMEN PELVIS W CONT, DATE/TIME OF EXAM: 10/25/2022 12:56 PM, LOCATION [facility] INDICATION: I63.511: Right middle cerebral artery [...] verification. > Dictated by Clarisa Cantrell MD (residential sales). I, Alexx Lopez have personally reviewed and interpreted this examination/study. > Interpreting Provider: Alexx Lopez on 10/25/2022 4:[address] HEAD WO CONTRAST Result Date: 10/25/2022 PROCEDURE: CT HEAD WO CONTRAST, DATE/TIME OF EXAM: 10/25/2022 12:56 PM, LOCATION [facility] INDICATION: I63.511: Right middle cerebral artery [...] report is dictated by Miranda Bowen MD (residential sales) I, Joni Fabian MD have personally reviewed and interpreted this examination/study. > Interpreting Provider: Joni Fabian MD on 10/25/2022 2:[address] CARDIAC ANGIO STRUCT MORPH Result Date: 10/25/2022 PROCEDURE: CT CARDIAC ANGIO STRUCT MORPH, DATE/TIME OF EXAM: 10/23/2022 3:08 PM, LOCATION [facility] INDICATION: I63.411: Acute cerebrovascular accident [...] DATE/TIME OF EXAM: 10/24/2022 2:04 PM, LOCATION [facility] INDICATION: R47.1: Dysarthria ADDITIONAL CLINICAL INFORMATION: Ordering Provider ReasonFor Exam: ngt placement COMPARISON: Portable KUB dated 10/23/2022 FINDINGS/IMPRESSION: The enteric tube courses below the diaphragm with tip superimposing the gastric pyloric region. Drafted by Agnes Olmos DO (residential sales). I, Vanessa Kumar MD have personally reviewed and interpreted this examination/study. > Interpreting Provider: Vanessa Kumar MD on 10/24/2022 2:17 PM MRI BRAIN WWO CONTRAST Result Date: 10/24/2022 PROCEDURE: MRI BRAIN WWO CONTRAST, DATE/TIME OF EXAM: 10/24/2022 10:56 AM, LOCATION [facility] INDICATION: I63.411: Acute cerebrovascular accident [...] right lateral ventricle, and approximately 3-4 mm zpgzn-ye-xlkl midline shift at the level of the [...] right lateral ventricle, and approximately 3-4 mm hgxkt-ie-gbtk midline shift, grossly similar to the prior. [...] verification. Report dictated by Tim Major MD (residential sales). Jasper Ornelas MD have personally reviewed and interpreted this examination/study. 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 Endotracheal tube terminates in the midthoracic trachea. There is no focal consolidation. No pleural effusion or pneumothorax. The cardiomediastinal silhouette is normal. No acute osseous abnormality. Report dictated by Agnes Olmos DO (residential sales). Vanessa Ornelas MD have personally reviewed and [...] DATE/TIME OF EXAM: 10/23/2022 1:53 PM, LOCATION [facility] INDICATION: R47.1: Dysarthria ADDITIONAL CLINICAL INFORMATION: Ordering Provider ReasonFor Exam: NGT placement COMPARISON: Portable KUB dated 10/20/2022 FINDINGS/IMPRESSION: The enteric tube courses below the diaphragm with tip superimposing the stomach. Drafted by Agnes Olmos DO (residential sales). I, Vanessa Kumar MD have personally reviewed and interpreted this examination/study. > Interpreting Provider: Vanessa Kumar MD on 10/24/2022 8:[address] HEAD WO CONTRAST Result Date: 10/23/2022 PROCEDURE: CT HEAD WO CONTRAST, DATE/TIME OF EXAM: 10/23/2022 5:53 AM, LOCATION [facility] INDICATION: I63.511: Right middle cerebral [...] The report is dictated by Miranda Bowen MD(residential sales) IJasper MD have personally reviewed and interpreted this examination/study. > Interpreting Provider: Jasper Sifuentes MD on 10/23/2022 9:[address] HEAD WO CONTRAST Result Date: 10/22/2022 PROCEDURE: CT HEAD WO CONTRAST, DATE/TIME OF EXAM: 10/22/2022 5:35 AM, LOCATION [facility] INDICATION: I63.511: Right middle cerebral [...] hemorrhage. Report dictated by Lorenzo Horta MD (residential sales). I, Lonnie Rae MD have personally reviewed and interpreted this examination/study. > Interpreting Provider: Lonnie Rae MD on 10/22/2022 3:10 PM XR CHEST 1VW PORTABLE Result Date: 10/21/2022 PROCEDURE: XR CHEST 1VW PORTABLE, DATE/TIME OF EXAM: 10/21/2022 8:53 AM, LOCATION [facility] INDICATION: R53.1: Weakness ADDITIONAL CLINICAL INFORMATION: Ordering [...] Report dictated by Christopher Tobin MD, MD (residential sales). I, HEATHER FREGOSO MD have personally reviewed [...] DATE/TIME OF EXAM: 10/20/2022 9:13 PM, LOCATION [facility] INDICATION: I63.411: Acute cerebrovascular accident (CVA) due to embolism of right middle cerebral artery (CMS/HCC) ADDITIONAL CLINICAL INFORMATION: Ordering Provider Reason For Exam: [facility] COMPARISON: Multiple prior studies, most recently CT [...] effacement, effacement of theright lateral ventricle, and qwwnb-xr-hyyj midline shift measuring up to 4 mm [...] prior. > Dictated by Bassam Jovel M.D. (residential sales) Gonzalez Ornelas MD have personally reviewed and [...] body. Report dictated by Royer Stovall MD (residential sales). Amanda Ornelas MD have personally reviewed and [...] DATE/TIME OF EXAM: 10/19/2022 8:16 AM, LOCATION [facility] INDICATION: Code Stroke ADDITIONAL CLINICAL [...] DATE/TIME OF EXAM: 10/19/2022 8:04 AM, LOCATION [facility] INDICATION: Code Stroke ADDITIONAL CLINICAL [...] tube (CMS/HCC) (POA: Unknown) Assessment Consuelo R Pjlubna??is a 41 year old??female who??presented on 10/19 [...] vasc surgery - Vascular Sx reconsulted for hematoma [...] 100.6 ??F (38.1 ??C) 99 -- 122/68 08/30/23 2030 98.6 ??F (37 ??C) 98 18 [...] 3.6 Recent Labs Component Name 11/08/22 2346 11/07/224 11/06/22 2312 11/06/22 0136 WBC 5.2 4.7 [...] Date/Time RESPIRATORY PANEL WITH SARS-COV-2 BY PCR (STL) [[id number]] (Normal) Collected: 11/05/22 1310 Lab Status: Final [...] via the [place] Pathway. CULTURE URINE [[id number]] (Normal) Collected: 11/05/22 1307 Lab Status: Final result Specimen: Urine Cath Straight Updated: 11/06/22 1617 Culture Urine No growth (<100 CFU/mL) CULTURE BLOOD [[id number]] (Normal) Collected: 11/05/22 1054 Lab Status: Preliminary result Specimen: Blood Peripheral Updated: 11/07/22 1401 Culture No growth CULTURE URINE [[id number]] (Normal) Collected: 10/27/22 1208 Lab Status: Final result Specimen: Urine Clean Catch Updated: 10/28/22 2236 Culture Urine No growth (<100 CFU/mL) CULTURE BLOOD FUNGUS [[id number]] (Normal) Collected: 10/27/22 1158 Lab Status: Preliminary result Specimen: Blood Peripheral Updated: 11/06/22 0848 Culture No fungus isolated CULTURE BLOOD AFB [[id number]] (Normal) Collected: 10/27/22 1158 Lab Status: Preliminary result Specimen: Blood Peripheral Updated: 11/06/22 1135 Culture No acid-fast bacillus isolated BARTONELLA SPECIES PCR [[id number]] Collected: 10/27/22 1158 Lab Status: Final result [...] developed and its performance characteristics determined by [facility]. It has not been cleared or approved by the [place] Food and Drug Administration. This test was performed in a CLIA certified laboratory and is intended for clinical purposes. Performed By: [facility] [address] [place] [id number] Film Spooler: Boo Bond MD, PhD CLIA Number: [id number] CULTURE BLOOD [[id number]] (Normal) Collected: 10/25/22 0900 Lab Status: Final result Specimen: Blood Peripheral Updated: 10/30/22 1330 Culture No growth day 5 CULTURE BLOOD [[id number]] (Normal) Collected: 10/24/22 1313 Lab Status: Final result Specimen: Blood Peripheral Updated: 10/29/22 1632 Culture No growth day 5 MRSA DNA PCR [[id number]] (Normal) Collected: 10/23/22 1234 Lab Status: Final result Specimen: Microbiology from Nasal Updated: 10/23/22 2044 MRSA DNA by PCR Not detected Narrative: Methicillin-resistant Staphylococcus aureus (MRSA) DNA is not detected (presumed not colonized withMRSA). CULTURE BLOOD [[id number]] (Normal) Collected: 10/23/22 1216 Lab Status: Final result Specimen: Blood Peripheral Updated: 10/28/22 1702 Culture No growth day 5 CULTURE BLOOD [[id number]] (Normal) Collected: 10/23/22 1205 Lab Status: Final [...] presence of the primary team staff, residents, PT/OT/MULTI SITE LEASING CONSULTANT and CM/SW. Jaime Drew MD Vascular and [...] Admission: 10/19/2022 Hospital Day: 21 Subjective Consuelo Kvale is a 41yo woman hemiplegic migraine,??GERD, GENESIS. who developed acute onset L sided weakness, L-sided sensory deficits, and dysarthria. L sided weakness resolved in route and dysarthriaimproved in route. On arrival patient noted to kurtis astorga, Amy hemainopsia, mild dysarthria, and extinction. NIHSS: 7. [...] bilaterally ? Labs: Recent Labs Component Name 11/08/22 2346 11/07/22 2234 11/06/22 2312 10/23/22 0129 10/22/22 0153 WBC 5.2 4.7 4.7 - - RBC 3.59* 3.18* 3.20* - - HGB 10.4* 9.2* 9.3* - - HCT 33.1* 29.5* 29.5* - - PLT - - - - 199 - = values in this interval not displayed. Recent Labs Component Name 11/08/22 2346 11/07/224 11/06/22 2312 NA 141 141 140 CL 107 108* 108* CO2 24 22 22 BUN 9 8 8 CREATININE 0.45* 0.53* 0.46* CALCIUM 8.5 8.6 8.5 No results for input(s): MG in the last 67962 hours. Recent Labs Component Name 11/08/22 2346 11/07/224 11/06/22 2312 PHOS 3.8 4.3 4.3 Recent Labs Component Name 11/09/22 0237 11/08/22 0254 11/07/22 0305 11/06/22 2312 11/06/22 1830 11/06/22 0740 PT 18.9* 18.3* 18.4* - - - INR 1.6 1.6 1.6 - - - PTT - - - 63.4* 68.6* 97.1* No results for input(s): A1C in the last 92622 hours. Recent Labs Component Name 10/20/22 0302 06/15/22 0757 CHOL 173 204* HDL 42 37* LDLCALC 91 117* TRIG 201* 251* Recent Labs Component Name 11/06/22 0136 TSH 1.682 No results for input(s): CKMB, CKTOTAL, CKMB, TROPONINI, BNP in the last [address] ANGIO CHEST PULM EMBOLISM Result Date: 11/07/2022 PROCEDURE: CT ANGIO CHEST PULM EMBOLISM, DATE/TIME OF EXAM: 11/07/2022 5:25 PM, LOCATION [facility] INDICATION: R50.9: Fever, unspecified fever [...] chest. > Dictated by Tim Major MD (residential sales). I, Alexx Lopez have personally reviewed and [...] Time to Reperfusion: 9:54 Final TICI: 2b Rigging Engineer: Dr. Mitali Walter Liner Roll Changer(s): Isak Monte Vessels: Ultrasound Guided Access of Femoral Artery Ultrasound Guided Access of Radial Artery Arterial line placement in the right radial artery Right Common Carotid Artery Angiogram: Cerebral Intracranial Catheterization Mechanical Thrombectomy with Retrievable Stent and Reperfusion Catheter Angiography Through the Existing Catheter Right Femoral Artery Angiogram Anesthesia: General Anesthesia was performed and monitored by an attending Anesthesiologist and their social human services assistants throughout the entirety of the case Procedural [...] artery demonstrated a patent vessel. A 5 fijian sheath was placed in the radial artery [...] Following a series of exchanges, a 8 Georgian sheath sheath was placed in the right femoralartery. A Guide and a 6 Georgian Penumbra Select Serrano 2 catheter along with [...] system. Hemostasis was achieved using a 8 Georgian Angio-Seal closure device. Hemostasis was immediate at [...] DATE/TIME OF EXAM: 11/05/2022 5:28 PM, LOCATION [facility] INDICATION: R50.9: Fever, unspecified fever [...] pattern. Report dictated by Mc Castro MD, (residential sales). I, Pepe Gonzalez MD have personally reviewed [...] DATE/TIME OF EXAM: 11/05/2022 9:38 AM, LOCATION [facility] INDICATION: R50.9: Fever, unspecified fever cause ADDITIONAL CLINICAL INFORMATION: Ordering Provider Reason For Exam: consolidation COMPARISON: Chest radiograph 10/29/2022. FINDINGS/IMPRESSION: Previously seen feeding tube has been removed. These no confluent consolidation, pleural effusion, or pneumothorax is noted. The cardiomediastinal silhouette is stable. No acute osseous abnormality is noted. Report dictated by Christopher Tobin MD, (residential sales). I, HEATHER FREGOSO MD have personally reviewed and interpreted this examination/study. > Interpreting Provider: HEATHER FREGOSO MD on 11/05/2022 2:[address] ABDOMEN WO CONTRAST Result Date: 11/02/2022 PROCEDURE: CT ABDOMEN WO CONTRAST, DATE/TIME OF EXAM: 2022 6:47 PM, LOCATION [facility] INDICATION: Z93.1: Presence of externally [...] queried.. > Dictated by Tim Major MD (residential sales). I, Pepe Gonzalez MD have personallyreviewed and interpreted this examination/study. > Interpreting Provider: Pepe Gonzalez MD on 11/02/2022 1:[address] ABDOMEN PELVIS W CONTRAST Result Date: 10/31/2022 PROCEDURE: CT ABDOMEN PELVIS W CONTRAST, DATE/TIME OF EXAM: 10/31/2022 10:16 AM, LOCATION [facility] INDICATION: I33.0: Aortic valve vegetation [...] DATE/TIME OF EXAM: 10/30/2022 8:22 PM, LOCATION: [facility] HISTORY: I63.511: Right middle cerebral artery stroke [...] up to 8 mm in maximal thickness (/32), previously measuring up to 9 mm in [...] frontal gyrus/frontal operculum, consistent with an evolving mmnqhrou-rg-kholcxm infarct. 4.No significant midline shift. Similar-appearing size and configuration of the ventricles without evidence of hydrocephalus. Basal cisterns are patent. 5.No other convincing change. Partially imaged left nasoenteric tube. > Interpreting Provider: Amanda Real MD, PhD on 10/31/2022 1:26 AM [facility] ANGIO TEAM Result Date: 10/30/2022 Fluoroscopy was used for this exam in the OR. Please see the Operative report. XR CHEST 1VW PORTABLE Result Date: 10/29/2022 PROCEDURE: XR CHEST 1VW PORTABLE, DATE/TIME OF EXAM: 10/29/2022 10:29 AM, LOCATION [facility] INDICATION: R09.02: Hypoxia ADDITIONAL CLINICAL INFORMATION: Ordering Provider Reason For Exam: evaluate for hypoxia COMPARISON: Chest x-ray from 10/27/2022 FINDINGS/IMPRESSION: Enteric tube is seen coursing over the diaphragm without visualization of the distal tip. There is no focal consolidation, pleural effusion, or pneumothorax. The cardiomediastinal silhouette is normal. Report dictated by Jacques Russell DO (residential sales). Jacques Ornelas DO have personally reviewed and interpreted this examination/study. 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 Report dictated by Jacques Russell DO (residential sales). Jacques Ornelas DO have personally reviewed and interpreted this examination/study. 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 FINDINGS/IMPRESSION: Enteric tube courses below the diaphragm with the distal tip superimposing the antropyloric region. Report dictated by Martell Shetty MD (residential sales). I, Jacques Cole DO have personally reviewed and interpreted this examination/study. > Interpreting Provider: Jacques Cole DO on 10/28/2022 12:[address] HEAD WO CONTRAST Result Date: 10/28/2022 PROCEDURE: CT HEAD WO CONTRAST, DATE/TIME OF EXAM: 10/28/2022 5:28 AM, LOCATION [facility] INDICATION: Z91.89: At high risk for bleeding [...] report is dictated by Kayla Stevenson MD (residential sales) 1 ILonnie MD have personally reviewed and interpreted this examination/study. > Interpreting Provider: Lonnie Rae MD on 10/28/2022 9:15 AM XR CHEST 1VW PORTABLE Result Date: 10/27/2022 PROCEDURE: XR CHEST 1VW PORTABLE, DATE/TIME OF EXAM: 10/27/2022 10:19 AM, LOCATION [facility] INDICATION: D72.829: Leukocytosis, unspecified type ADDITIONAL CLINICAL INFORMATION: Ordering Provider Reason For Exam: any concern for pneumonia COMPARISON: Chest radiograph dated 10/25/2022. FINDINGS/IMPRESSION: Enteric tube courses below the diaphragm and out of the cuvgm-uk-ajid. RUQ surgical clips are present. No focal consolidation. No pleural effusion or pneumothorax. The cardiomediastinal silhouette is normal. Report dictated by Agnes Olmos DO (residential sales). IPepe MD have personally reviewed and interpreted this examination/study. 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 Enteric tube courses below the diaphragm and out of the ycxlv-sv-mjow. There is severe left rotation of the patient in this study. There is no focal consolidation, pleural effusion, or pneumothorax. The left upper lobe pulmonary nodule noted on chest CT from same day is not visualized on this plain film. The cardiomediastinal silhouette is normal. The visible bony thorax is intact. Report dictated by Royer Stovall MD (residential sales). Alexx Ornelas have personally reviewed and interpreted this examination/study. > Interpreting Provider: Alexx Lopez on 10/26/2022 2:[address] HEAD WO CONTRAST Result Date: 10/26/2022 PROCEDURE: CT HEAD WO CONTRAST, DATE/TIME OF EXAM: 10/26/2022 4:55 AM, LOCATION [facility] INDICATION: I63.511: Right middle cerebral [...] report is dictated by Miranda Bowen MD (residential sales) I, Oriana Suarez MD have personally reviewed and interpreted this examination/study. > Interpreting Provider: Oriana Suarez MD on 38:[address] CHEST ABDOMEN PELVIS W CONT Result Date: 10/25/2022 PROCEDURE: CT CHEST ABDOMEN PELVIS W CONT, DATE/TIME OF EXAM: 10/25/2022 12:56 PM, LOCATION [facility] INDICATION: I63.511: Right middle cerebral artery [...] verification. > Dictated by Clarisa Cantrell MD (residential sales). I, Alexx Lopez have personally reviewed and interpreted this examination/study. > Interpreting Provider: Alexx Lopez on 10/25/2022 4:[address] HEAD WO CONTRAST Result Date: 10/25/2022 PROCEDURE: CT HEAD WO CONTRAST, DATE/TIME OF EXAM: 10/25/2022 12:56 PM, LOCATION [facility] INDICATION: I63.511: Right middle cerebral artery [...] report is dictated by Miranda Bowen MD (residential sales) I, Joni Fabian MD have personally reviewed and interpreted this examination/study. > Interpreting Provider: Joni Fabian MD on 10/25/2022 2:[address] CARDIAC ANGIO STRUCT MORPH Result Date: 10/25/2022 PROCEDURE: CT CARDIAC ANGIO STRUCT MORPH, DATE/TIME OF EXAM: 10/23/2022 3:08 PM, LOCATION [facility] INDICATION: I63.411: Acute cerebrovascular accident [...] DATE/TIME OF EXAM: 10/24/2022 2:04 PM, LOCATION [facility] INDICATION: R47.1: Dysarthria ADDITIONAL CLINICAL INFORMATION: Ordering Provider ReasonFor Exam: ngt placement COMPARISON: Portable KUB dated 10/23/2022 FINDINGS/IMPRESSION: The enteric tube courses below the diaphragm with tip superimposing the gastric pyloric region. Drafted by Agnes Olmos DO (residential sales). I, Vanessa Kumar MD have personally reviewed and interpreted this examination/study. > Interpreting Provider: Vanessa Kumar MD on 10/24/2022 2:17 PM MRI BRAIN WWO CONTRAST Result Date: 10/24/2022 PROCEDURE: MRI BRAIN WWO CONTRAST, DATE/TIME OF EXAM: 10/24/2022 10:56 AM, LOCATION [facility] INDICATION: I63.411: Acute cerebrovascular accident [...] right lateral ventricle, and approximately 3-4 mm pxqwx-ud-rnzx midline shift at the level of the [...] right lateral ventricle, and approximately 3-4 mm izkdy-ek-yxkg midline shift, grossly similar to the prior. [...] verification. Report dictated by Tim Major MD (residential sales). IJasper MD have personally reviewed and interpreted this examination/study. 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 Endotracheal tube terminates in the midthoracic trachea. There is no focal consolidation. No pleural effusion or pneumothorax. The cardiomediastinal silhouette is normal. No acute osseous abnormality. Report dictated by Agnes Olmos DO (residential sales). I, Vanessa Kumar MD have personally reviewed [...] DATE/TIME OF EXAM: 10/23/2022 1:53 PM, LOCATION [facility] INDICATION: R47.1: Dysarthria ADDITIONAL CLINICAL INFORMATION: Ordering Provider ReasonFor Exam: NGT placement COMPARISON: Portable KUB dated 10/20/2022 FINDINGS/IMPRESSION: The enteric tube courses below the diaphragm with tip superimposing the stomach. Drafted by Agnes Olmos DO (residential sales). I, Vanessa Kumar MD have personally reviewed and interpreted this examination/study. > Interpreting Provider: Vanessa Kumar MD on 10/24/2022 8:[address] HEAD WO CONTRAST Result Date: 10/23/2022 PROCEDURE: CT HEAD WO CONTRAST, DATE/TIME OF EXAM: 10/23/2022 5:53 AM, LOCATION [facility] INDICATION: I63.511: Right middle cerebral [...] The report is dictated by Miranda Bowen MD(residential sales) IJasper MD have personally reviewed and interpreted this examination/study. > Interpreting Provider: Jasper Sifuentes MD on 10/23/2022 9:[address] HEAD WO CONTRAST Result Date: 10/22/2022 PROCEDURE: CT HEAD WO CONTRAST, DATE/TIME OF EXAM: 10/22/2022 5:35 AM, LOCATION [facility] INDICATION: I63.511: Right middle cerebral [...] hemorrhage. Report dictated by Lorenzo Horta MD (residential sales). I, Lonnie Rae MD have personally reviewed and interpreted this examination/study. > Interpreting Provider: Lonnie Rae MD on 10/22/2022 3:10 PM XR CHEST 1VW PORTABLE Result Date: 10/21/2022 PROCEDURE: XR CHEST 1VW PORTABLE, DATE/TIME OF EXAM: 10/21/2022 8:53 AM, LOCATION [facility] INDICATION: R53.1: Weakness ADDITIONAL CLINICAL INFORMATION: Ordering [...] Report dictated by Christopher Tobin MD, MD (residential sales). I, HEATHER FREGOSO MD have personally reviewed [...] DATE/TIME OF EXAM: 10/20/2022 9:13 PM, LOCATION [facility] INDICATION: I63.411: Acute cerebrovascular accident (CVA) due to embolism of right middle cerebral artery (CMS/HCC) ADDITIONAL CLINICAL INFORMATION: Ordering Provider Reason For Exam: [facility] COMPARISON: Multiple prior studies, most recently CT [...] effacement, effacement of theright lateral ventricle, and lgwza-ek-awmv midline shift measuring up to 4 mm [...] prior. > Dictated by Bassam Jovel M.D. (residential sales) Gonzalez Ornelas MD have personally reviewed and [...] body. Report dictated by Royer Stovall MD (residential sales). Amanda Ornelas MD have personally reviewed and [...] DATE/TIME OF EXAM: 10/19/2022 8:16 AM, LOCATION [facility] INDICATION: Code Stroke ADDITIONAL CLINICAL [...] DATE/TIME OF EXAM: 10/19/2022 8:04 AM, LOCATION [facility] INDICATION: Code Stroke ADDITIONAL CLINICAL [...] 36.05 kg/m??. Serum creatinine: 0.45 mg/dL (L) 11/08/222345 Estimated creatinine clearance: 186 mL/min (A) * [...] needed. Shania Jha, PharmD 1:28 PM 11/09/2022 [facility] Vancomycin Guideline SUBJECTIVE/OBJECTIVE Consuelo Darby is a [...] 8 WBC 5.2 4.7 4.7 6.5 7.9 @[id number]@ Dialysis Orders (72h ago, onward) None Radiocontrast within 72 hours The 3 most recent administrations since 11/06/2022 are shown below each listed medication. Other Order Route Dose Action Date iopamidol (Isovue 370) 76 % contrast Intravenous 100 mL $ Given - Contrast 11/07/2022 perflutren lipid microsphere (Definity) injection 0.5 mL Intravenous 0.5 mL $ Given 11/06/2022 Vancomycin Administrations from MAR (last 72 hours) [...] Troy, OT - 11/09/2022 1:[address] 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 * Rosa Vegas, PT - 11/09/2022 10:[address] [facility] Physical Medicine and Rehabilitation Physical Therapy Progress Note Patient: Consuelo Darby Med Record Number: [id number] Date of : 1980 Age: [age] year [...] with no alarm; family member and RN [place] present General Appearance: Adult female, in NAD; [...] therapeutic exercises, and monitoring of vitals Modified Wetmore: Current Modified Maryann Score: 5 AM-PAC 6 [...] EOB x10 minutes with minimal assist ?? Jail Goal(s): Patient to discharge to appropriate next [...] visible on white board. * Isamar Ochoa APRN-CNP - 11/09/2022 9:35 AM CDT PLAN OF [...] Facility Information: [facility] Anticipated level of care at discharge: Acute Rehab Facility: Anticipated level of care provider: [facility] (ALL LOCATIONS): Anticipated Discharge Date: 11/10/22: Orientation Level: Oriented X4: Family Support (Name and Phone): Extended Emergency Contact Information Primary Emergency Contact: Hi Darby Address: [address] [place] [address] [place] [address] [facility] Relation: Spouse Secondary Emergency Contact: Sandra Disla [facility] Mobile Relation: Mother Transportation at Discharge: Ambulance: READMISSION RISK SCORE is 16 at 9:12 AM 11/09/2022.: Name: Anita Richards * Alhaji Otoole MD - 11/09/2022 8:33 AM CDT [facility] Infectious Diseases Progress Note Admitted on: 10/19/2022 7:53 AM Hospital stay: Room: [facility] Attending: Jaime Drew MD Reason for [...] CBC: Recent Labs Component Name 11/08/22 2346 11/07/224 11/06/22 2312 10/23/22 0129 10/22/22 0153 WBC 5.2 4.7 4.7 - - RBC 3.59* 3.18* 3.20* - - HGB 10.4* 9.2* 9.3* - - HCT 33.1* 29.5* 29.5* - - MCV 92.2 92.8 92.2 - - PLT - - - - 199 - = values in this interval not displayed. BMP: Recent Labs Component Name 11/09/22 0654 11/08/22 2346 11/07/224 11/06/22 2312 10/20/22 0302 10/19/22 0824 06/15/22 0757 NA - 141 141 140 - [...] (L)). Recent Labs Component Name 11/09/22 0654 10/19/22 0824 06/15/22 0757 ALT 77* 16 9 AST 67* [...] Cruz MD - 11/10/2022 9:03 AM CDT [facility] Infectious Diseases Attending Note Documentation Date/Time: 11/09/2022, [...] S/p 10/20 with neurosurgery for R sided vphkvx-xffsqux-wdcyetdi decompressive sonya-craniectomy for treatment of refractory intracranial [...] 118/64 11/08/22 0650 -- 109 -- 143/80 08/30/23 0430 98.9 ??F (37.2 ??C) 103 -- 139/70 11/08/22 0051 98.8 ??F (37.1 ??C) 102 -- 147/73 11/07/22 2001 98.2 ??F (36.8 ??C) 104 18 119/57 Intake/Output Summary (Last 24 hours) at 11/08/2022 1650 Last data filed at 11/08/2022 0800 Gross per 24 hour Intake 1095 ml Output 3500 ml Net -2405 ml Labs: Recent Labs Component Name 10/20/2230106/15/22 0757 CHOL 173 204* TRIG 201* 251* HDL 42 37* LDLCALC 91 117* Recent Labs Component Name 10/20/22 1015 HGBA1C 6.0* Recent Labs Component Name 11/07/22223311/06/22231111/06/22 0136 11/05/22 1124 NA 141 140 139 139 POTASSIUM 3.6 3.6 3.5 3.8 CL 108* 108* 111* 104 CO2 22 22 21* 23 BUN 8 8 8 8 CREATININE 0.53* 0.46* 0.56 0.54* CALCIUM 8.6 8.5 8.3* 8.5 MAGNESIUM 2.8* 2.0 2.0 2.0 PHOS 4.3 4.3 3.6 3.2 Recent Labs Component Name 11/07/22223311/06/22231111/06/22 0136 11/05/22 1227 WBC 4.7 4.7 6.5 7.9 6.9 HGB 9.2* 9.3* 10.0* 9.7* 9.7* HCT 29.5* 29.5* 32.8* 30.2* 29.6* PLTCOUNT 325 195 155 247 344 RBC 3.18* 3.20* 3.42* 3.28* 3.24* Recent Labs Component Name 11/08/22 02511/07/2230411/06/22231111/06/22 1830 11/06/22 0740 11/06/22 0136 PT 18.3* [...] Date/Time RESPIRATORY PANEL WITH SARS-COV-2 BY PCR (STL) [[id number]] (Normal) Collected: 11/05/22 1310 Lab Status: Final [...] via the [place] Pathway. CULTURE URINE [[id number]] (Normal) Collected: 11/05/22 1307 Lab Status: Final result Specimen: Urine Cath Straight Updated: 11/06/22 1617 Culture Urine No growth (<100 CFU/mL) CULTURE BLOOD [[id number]] (Normal) Collected: 11/05/22 1054 Lab Status: Preliminary result Specimen: Blood Peripheral Updated: 11/07/22 1401 Culture No growth CULTURE URINE [[id number]] (Normal) Collected: 10/27/22 1208 Lab Status: Final result Specimen: Urine Clean Catch Updated: 10/28/22 2236 Culture Urine No growth (<100 CFU/mL) CULTURE BLOOD FUNGUS [[id number]] (Normal) Collected: 10/27/22 1158 Lab Status: Preliminary result Specimen: Blood Peripheral Updated: 11/06/22 0848 Culture No fungus isolated CULTURE BLOOD AFB [[id number]] (Normal) Collected: 10/27/22 1158 Lab Status: Preliminary result Specimen: Blood Peripheral Updated: 11/06/22 1135 Culture No acid-fast bacillus isolated BARTONELLA SPECIES PCR [[id number]] Collected: 10/27/22 1158 Lab Status: Final result [...] developed and its performance characteristics determined by [facility]. It has not been cleared or approved by the US Food and Drug Administration. This test was performed in a CLIA certified laboratory and is intended for clinical purposes. Performed By: [facility] [address] [place] [address] Film Spooler: Boo Bond MD, PhD CLIA Number: [id number] CULTURE BLOOD [[id number]] (Normal) Collected: 10/25/22 0900 Lab Status: Final result Specimen: Blood Peripheral Updated: 10/30/22 1330 Culture No growth day 5 CULTURE BLOOD [[id number]] (Normal) Collected: 10/24/22 1313 Lab Status: Final result Specimen: Blood Peripheral Updated: 10/29/22 1632 Culture No growth day 5 MRSA DNA PCR [[id number]] (Normal) Collected: 10/23/22 1234 Lab Status: Final result Specimen: Microbiology from Nasal Updated: 10/23/22 2044 MRSA DNA by PCR Not detected Narrative: Methicillin-resistant Staphylococcus aureus (MRSA) DNA is not detected (presumed not colonized withMRSA). CULTURE BLOOD [[id number]] (Normal) Collected: 10/23/22 1216 Lab Status: Final result Specimen: Blood Peripheral Updated: 10/28/22 1702 Culture No growth day 5 CULTURE BLOOD [[id number]] (Normal) Collected: 10/23/22 1205 Lab Status: Final [...] presence of the primary team staff, residents, PT/OT/MULTI SITE LEASING CONSULTANT and CM/SW. Jaime Drew MD Vascular and [...] needed. Maicol Oden, PharmD 3:58 PM 11/08/2022 [facility] Vancomycin Guideline SUBJECTIVE/OBJECTIVE Consuelo Darby is a [...] WBC 4.7 4.7 6.5 7.9 6.9 - @[id number]@ Dialysis Orders (72h ago, onward) None Radiocontrast within 72 hours The 3 most recent administrations since 11/05/2022 are shown below each listed medication. Other Order Route Dose Action Date iopamidol (Isovue 370) 76 % contrast Intravenous 100 mL $ Given - Contrast 11/07/2022 perflutren lipid microsphere (Definity) injection 0.5 mL Intravenous 0.5 mL $ Given 11/06/2022 Vancomycin Administrations from MAR (last 72 hours) [...] Leigh, JOSETTE - 11/08/2022 3:[address] [facility] Physical Medicine and Rehabilitation Swallow Treatment Patient: Consuelo Darby Med Record Number: [id number] Date of : 1980 Age: [age] year [...] Impression - Pharyngeal: Severe Treatment/Education/Interventions: While performing MULTI SITE LEASING CONSULTANT, Patient and sister was instructed in: goals [...] precautions., Patient will follow recommended swallowing strategies. Jail Goal (s): Patient to be independent/baseline with functional mobility and self care and be able to safely discharge to prior level of care. Jerry Valle M.A., [facility])-MULTI SITE LEASING CONSULTANT Speech Language Pathologist [phone] * Jose Elias [...] Otoole MD - 11/08/2022 3:10 PM CDT [facility] Infectious Diseases Progress Note Admitted on: 10/19/2022 7:53 AM Hospital stay: Day Room: [facility]/ Attending: Jaime Drew MD Reason for ID [...] Lines: LABS CBC: Recent Labs Component Name 11/07/22223311/06/22 2312 11/06/22 0136 10/23/22 0129 10/22/22 0153 WBC 4.7 4.7 6.5 7.9 - - RBC 3.18* 3.20* 3.42* 3.28* - - HGB 9.2* 9.3* 10.0* 9.7* - - HCT 29.5* 29.5* 32.8* 30.2* - - MCV 92.8 92.2 95.9 92.1 - - PLT - - - - 199 - = values in this interval not displayed. BMP: Recent Labs Component Name 11/07/22223311/06/22231111/06/226 10/20/22 0302 10/19/22 0824 06/15/22 0757 NA [...] Cruz MD - 11/09/2022 6:55 AM CDT [facility] Infectious Diseases Attending Note Documentation Date/Time: 11/08/2022, [...] S/p 10/20 with neurosurgery for R sided fuxoty-idkoisw-awdflobg decompressive sonya-craniectomy for treatment of refractory intracranial [...] None: Anticipated Discharge Date: 11/10/22: Discharge Plan: [facility] Rehab once medically ready. Pt febrile and being evaluated. ID following. Pending heparin gtt + warfarin bridge Orientation Level: Oriented to Person;Oriented to Place: Family Support (Name and Phone): Extended Emergency Contact Information Primary Emergency Contact: Hi Darby Address: [address] [place] [address] [place] [address] [facility] Relation: Spouse Secondary Emergency Contact: Sandra Disla [facility] Mobile Relation: Mother Transportation at Discharge: Ambulance: READMISSION RISK SCORE is 16 at 2:49 PM 11/08/2022.: Name: Maru Mcduffie RN [phone] * Rosa Vegas, PT - 11/08/2022 2:[address] [facility] Physical Medicine and Rehabilitation Physical Therapy Progress Note Patient: Consuelo Darby Med Record Number: [id number] Date of : 1980 Age: [age] year [...] balance activities, and monitoring of vitals Modified Maryann: Current Modified Wetmore Score: 5 AM-PAC 6 Clicks Mobility Raw [...] EOB x10 minutes with minimal assist ?? Jail Goal(s): Patient to discharge to appropriate next [...] Troy, OT - 11/08/2022 11:[address] 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 LDA: [...] splint fitting appropriately, skin integrity intact. Modified Wetmore: Current Modified Wetmore Score: 5 AM-PAC 6 Clicks Daily Activity [...] with good endurance and with minimal pain Jail Goal(s): Patient to discharge to appropriate next [...] within reach, with family in room, with RNJose Elias aware, with therapy cues visible on white [...] bilaterally ?? Labs: Recent Labs Component Name 11/07/22223311/06/22231111/06/226 10/23/22 0129 10/22/22 0153 WBC 4.7 4.7 6.5 7.9 - - RBC 3.18* 3.20* 3.42* 3.28* - - HGB 9.2* 9.3* 10.0* 9.7* - - HCT 29.5* 29.5* 32.8* 30.2* - - PLT - - - - 199 - = values in this interval not displayed. Recent Labs Component Name 11/07/22223311/06/22231111/06/22135 NA 141 140 139 CL 108* 108* 111* CO2 22 22 21* BUN 8 8 8 CREATININE 0.53* 0.46* 0.56 CALCIUM 8.6 8.5 8.3* No results for input(s): MG in the last 53277 hours. Recent Labs Component Name 11/07/22223311/06/22231111/06/22135 PHOS 4.3 4.3 3.6 Recent Labs Component Name 11/08/22 0254 11/07/22 0305 11/06/22231111/06/22 1830 11/06/22 0740 11/06/22135 PT 18.3* 18.4* - - - 17.1* INR 1.6 1.6 - - - 1.4 PTT - - 63.4* 68.6* 97.1* 100.4* No results for input(s): A1C in the last 63056 hours. Recent Labs Component Name 10/20/22 0302 06/15/22 0757 CHOL 173 204* HDL 42 37* LDLCALC 91 117* TRIG 201* 251* Recent Labs Component Name 11/06/22 0136 TSH 1.682 No results for input(s): CKMB, CKTOTAL, CKMB, TROPONINI, BNP in the last [address] ANGIO CHEST PULM EMBOLISM Result Date: 11/07/2022 PROCEDURE: CT ANGIO CHEST PULM EMBOLISM, DATE/TIME OF EXAM: 11/07/2022 5:25 PM, LOCATION [facility] INDICATION: R50.9: Fever, unspecified fever [...] chest. > Dictated by Tim Major MD (residential sales). IAlexx have personally reviewed and interpreted this [...] m-mode, color and spectralDoppler echocardiography. [facility] THROMBECT Result Date: 11/07/2022 PROCEDURE: [facility] THROMBECT DATE/TIME OF EXAM: 10/19/2022 10:41 AM [...] Time to Reperfusion: 9:54 Final TICI: 2b Rigging Engineer: Dr. Mitali Walter Liner Roll Changer(s): Isak Monte Vessels: Ultrasound Guided Access of Femoral Artery Ultrasound Guided Access of Radial Artery Arterial line placement in the right radial artery Right Common Carotid Artery Angiogram: Cerebral Intracranial Catheterization Mechanical Thrombectomy with Retrievable Stent and Reperfusion Catheter Angiography Through the Existing Catheter Right Femoral Artery Angiogram Anesthesia: General Anesthesia was performed and monitored by an attending Anesthesiologist and their social human services assistants throughout the entirety of the case Procedural [...] artery demonstrated a patent vessel. A 5 fijian sheath was placed in the radial artery [...] Following a series of exchanges, a 8 Georgian sheath sheath was placed in the right femoralartery. A Guide and a 6 Georgian Penumbra Select Serrano 2 catheter along with [...] system. Hemostasis was achieved using a 8 Georgian Angio-Seal closure device. Hemostasis was immediate at [...] DATE/TIME OF EXAM: 11/05/2022 5:28 PM, LOCATION [facility] INDICATION: R50.9: Fever, unspecified fever [...] pattern. Report dictated by Mc Castro MD, (residential sales). Pepe Ornelas MD have personally reviewed and [...] DATE/TIME OF EXAM: 11/05/2022 9:38 AM, LOCATION [facility] INDICATION: R50.9: Fever, unspecified fever cause ADDITIONAL CLINICAL INFORMATION: Ordering Provider Reason For Exam: consolidation COMPARISON: Chest radiograph 10/29/2022. FINDINGS/IMPRESSION: Previously seen feeding tube has been removed. These no confluent consolidation, pleural effusion, or pneumothorax is noted. The cardiomediastinal silhouette is stable. No acute osseous abnormality is noted. Report dictated by Christopher Tobin MD, MD (residential sales). HEATHER Ornelas MD have personally reviewed and interpreted this examination/study. > Interpreting Provider: HEATHER FREGOSO MD on 11/05/2022 2:[address] ABDOMEN WO CONTRAST Result Date: 11/02/2022 PROCEDURE: CT ABDOMEN WO CONTRAST, DATE/TIME OF EXAM: 2022 6:47 PM, LOCATION [facility] INDICATION: Z93.1: Presence of externally [...] queried.. > Dictated by Tim Major MD (residential sales). Pepe Ornelas MD have personallyreviewed and interpreted this examination/study. > Interpreting Provider: Pepe Gonzalez MD on 11/02/2022 1:[address] ABDOMEN PELVIS W CONTRAST Result Date: 10/31/2022 PROCEDURE: CT ABDOMEN PELVIS W CONTRAST, DATE/TIME OF EXAM: 10/31/2022 10:16 AM, LOCATION [facility] INDICATION: I33.0: Aortic valve vegetation [...] DATE/TIME OF EXAM: 10/30/2022 8:22 PM, LOCATION: [facility] HISTORY: I63.511: Right middle cerebral artery stroke [...] frontal gyrus/frontal operculum, consistent with an evolving mdmsadlm-ih-mjlzvph infarct. 4.No significant midline shift. Similar-appearing size [...] DATE/TIME OF EXAM: 10/29/2022 10:29 AM, LOCATION [facility] INDICATION: R09.02: Hypoxia ADDITIONAL CLINICAL INFORMATION: Ordering Provider Reason For Exam: evaluate for hypoxia COMPARISON: Chest x-ray from 10/27/2022 FINDINGS/IMPRESSION: Enteric tube is seen coursing over the diaphragm without visualization of the distal tip. There is no focal consolidation, pleural effusion, or pneumothorax. The cardiomediastinal silhouette is normal. Report dictated by Jacques Russell DO (residential sales). Jacques Ornelas DO have personally reviewed and interpreted this examination/study. 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 Report dictated by Jacques Russell DO (residential sales). Jacques Ornelas DO have personally reviewed and interpreted this examination/study. 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 FINDINGS/IMPRESSION: Enteric tube courses below the diaphragm with the distal tip superimposing the antropyloric region. Report dictated by Martell Shetty MD (residential sales). Jacques Ornelas DO have personally reviewed and interpreted this examination/study. > Interpreting Provider: Jacques Cole DO on 10/28/2022 12:[address] HEAD WO CONTRAST Result Date: 10/28/2022 PROCEDURE: CT HEAD WO CONTRAST, DATE/TIME OF EXAM: 10/28/2022 5:28 AM, LOCATION [facility] INDICATION: Z91.89: At high risk for bleeding [...] report is dictated by Kayla Stevenson MD (residential sales) 1 I, Lonnie Rae MD have personally reviewed and interpreted this examination/study. > Interpreting Provider: Lonnie Rae MD on 10/28/2022 9:15 AM XR CHEST 1VW PORTABLE Result Date: 10/27/2022 PROCEDURE: XR CHEST 1VW PORTABLE, DATE/TIME OF EXAM: 10/27/2022 10:19 AM, LOCATION [facility] INDICATION: D72.829: Leukocytosis, unspecified type ADDITIONAL CLINICAL INFORMATION: Ordering Provider Reason For Exam: any concern for pneumonia COMPARISON: Chest radiograph dated 10/25/2022. FINDINGS/IMPRESSION: Enteric tube courses below the diaphragm and out of the whcdo-vm-lkja. RUQ surgical clips are present. No focal consolidation. No pleural effusion or pneumothorax. The cardiomediastinal silhouette is normal. Report dictated by Agnes Olmos DO (residential sales). I, Pepe Gonzalez MD have personally reviewed and interpreted this examination/study. 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 Enteric tube courses below the diaphragm and out of the lbini-du-qrag. There is severe left rotation of the patient in this study. There is no focal consolidation, pleural effusion, or pneumothorax. The left upper lobe pulmonary nodule noted on chest CT from same day is not visualized on this plain film. The cardiomediastinal silhouette is normal. The visible bony thorax is intact. Report dictated by Royer Stovall MD (residential sales). I, Alexx Lopez have personally reviewed and interpreted this examination/study. > Interpreting Provider: Alexx Lopez on 10/26/2022 2:[address] HEAD WO CONTRAST Result Date: 10/26/2022 PROCEDURE: CT HEAD WO CONTRAST, DATE/TIME OF EXAM: 10/26/2022 4:55 AM, LOCATION [facility] INDICATION: I63.511: Right middle cerebral [...] communication. The report is dictated by Miranda Bowne MD (residential sales) I, Oriana Suarez MD have personally reviewed and interpreted this examination/study. > Interpreting Provider: Oriana Suarez MD on 38:[address] CHEST ABDOMEN PELVIS W CONT Result Date: 10/25/2022 PROCEDURE: CT CHEST ABDOMEN PELVIS W CONT, DATE/TIME OF EXAM: 10/25/2022 12:56 PM, LOCATION [facility] INDICATION: I63.511: Right middle cerebral artery [...] verification. > Dictated by Clarisa Cantrell MD (residential sales). I, Alexx Lopez have personally reviewed and interpreted this examination/study. > Interpreting Provider: Alexx Lopez on 10/25/2022 4:[address] HEAD WO CONTRAST Result Date: 10/25/2022 PROCEDURE: CT HEAD WO CONTRAST, DATE/TIME OF EXAM: 10/25/2022 12:56 PM, LOCATION [facility] INDICATION: I63.511: Right middle cerebral artery [...] report is dictated by Miranda Bowen MD (residential sales) I, Joni Fabian MD have personally reviewed and interpreted this examination/study. > Interpreting Provider: Joni Fabian MD on 10/25/2022 2:[address] CARDIAC ANGIO STRUCT MORPH Result Date: 10/25/2022 PROCEDURE: CT CARDIAC ANGIO STRUCT MORPH, DATE/TIME OF EXAM: 10/23/2022 3:08 PM, LOCATION [facility] INDICATION: I63.411: Acute cerebrovascular accident [...] DATE/TIME OF EXAM: 10/24/2022 2:04 PM, LOCATION [facility] INDICATION: R47.1: Dysarthria ADDITIONAL CLINICAL INFORMATION: Ordering Provider ReasonFor Exam: ngt placement COMPARISON: Portable KUB dated 10/23/2022 FINDINGS/IMPRESSION: The enteric tube courses below the diaphragm with tip superimposing the gastric pyloric region. Drafted by Agnes Olmos DO (residential sales). I, Vanessa Kumar MD have personally reviewed and interpreted this examination/study. > Interpreting Provider: Vanessa Kumar MD on 10/24/2022 2:17 PM MRI BRAIN WWO CONTRAST Result Date: 10/24/2022 PROCEDURE: MRI BRAIN WWO CONTRAST, DATE/TIME OF EXAM: 10/24/2022 10:56 AM, LOCATION [facility] INDICATION: I63.411: Acute cerebrovascular accident [...] right lateral ventricle, and approximately 3-4 mm odooj-yv-dfxa midline shift at the level of the [...] right lateral ventricle, and approximately 3-4 mm eebfk-cf-gfeg midline shift, grossly similar to the prior. [...] verification. Report dictated by Tim Major MD (residential sales). I, Jasper Sifuentes MD have personally reviewed and interpreted this examination/study. > Interpreting Provider: Jasper Sifuentes MD on 10/24/2022 1:59 PM XR CHEST 1VW PORTABLE Result Date: 10/24/2022 PROCEDURE: XR CHEST 1VW PORTABLE, DATE/TIME OF EXAM: 10/23/2022 8:24 AM, LOCATION [facility] INDICATION: I63.511: Right middle cerebral artery stroke (CMS/HCC) ADDITIONAL CLINICAL INFORMATION: Ordering Provider Reason For Exam: OETT position COMPARISON: Chest radiograph dated 10/21/2022 FINDINGS/IMPRESSION: The enteric tube courses below the diaphragm out of the inferior wnyve-ej-mkmg. Endotracheal tube terminates in the midthoracic trachea. There is no focal consolidation. No pleural effusion or pneumothorax. The cardiomediastinal silhouette is normal. No acute osseous abnormality. Report dictated by Agnes Olmos DO (residential sales). Vanessa Ornelasl, MD have personally reviewed and interpreted this [...] DATE/TIME OF EXAM: 10/23/2022 1:53 PM, LOCATION [facility] INDICATION: R47.1: Dysarthria ADDITIONAL CLINICAL INFORMATION: Ordering Provider ReasonFor Exam: NGT placement COMPARISON: Portable KUB dated 10/20/2022 FINDINGS/IMPRESSION: The enteric tube courses below the diaphragm with tip superimposing the stomach. Drafted by Agnes Olmos DO (residential sales). I, Vanessa Kumar MD have personally reviewed and interpreted this examination/study. > Interpreting Provider: Vanessa Kumar MD on 10/24/2022 8:[address] HEAD WO CONTRAST Result Date: 10/23/2022 PROCEDURE: CT HEAD WO CONTRAST, DATE/TIME OF EXAM: 10/23/2022 5:53 AM, LOCATION [facility] INDICATION: I63.511: Right middle cerebral [...] The report is dictated by Miranda Bowen MD(residential sales) IJasper MD have personally reviewed and interpreted this examination/study. > Interpreting Provider: Jasper Sifuentes MD on 10/23/2022 9:[address] HEAD WO CONTRAST Result Date: 10/22/2022 PROCEDURE: CT HEAD WO CONTRAST, DATE/TIME OF EXAM: 10/22/2022 5:35 AM, LOCATION [facility] INDICATION: I63.511: Right middle cerebral [...] hemorrhage. Report dictated by Lorenzo Horta MD (residential sales). I, Lonnie Rae MD have personally reviewed and interpreted this examination/study. > Interpreting Provider: Lonnie Rae MD on 10/22/2022 3:10 PM XR CHEST 1VW PORTABLE Result Date: 10/21/2022 PROCEDURE: XR CHEST 1VW PORTABLE, DATE/TIME OF EXAM: 10/21/2022 8:53 AM, LOCATION [facility] INDICATION: R53.1: Weakness ADDITIONAL CLINICAL INFORMATION: Ordering [...] intact. Report dictated by Christopher Tobin MD, (residential sales). IHEATHER MD have personally reviewed and interpreted [...] DATE/TIME OF EXAM: 10/20/2022 9:13 PM, LOCATION [facility] INDICATION: I63.411: Acute cerebrovascular accident (CVA) due to embolism of right middle cerebral artery (CMS/HCC) ADDITIONAL CLINICAL INFORMATION: Ordering Provider Reason For Exam: [facility] COMPARISON: Multiple prior studies, most recently CT [...] effacement, effacement of theright lateral ventricle, and rhlds-po-waqy midline shift measuring up to 4 mm [...] prior. > Dictated by Bassam Jovel M.D. (residential sales) Gonzalez Ornelas MD have personally reviewed and [...] body. Report dictated by Royer Stovall MD (residential sales). Amanda Ornelas MD have personally reviewed and [...] DATE/TIME OF EXAM: 10/19/2022 8:16 AM, LOCATION [facility] INDICATION: Code Stroke ADDITIONAL CLINICAL [...] DATE/TIME OF EXAM: 10/19/2022 8:04 AM, LOCATION [facility] INDICATION: Code Stroke ADDITIONAL CLINICAL [...] bowel regimen, per MAY. Labs reviewed -- filippo wnl. Will continue to monitor per clinical [...] Pain affecting intake: No Estimated Needs: KCAL: 2862-9282 (30-35 kcal/kg IBW) Protein (g): 82g (1.5 g/kg IBW) Fluid (ml): 1 ml/kcal Needs based on: (IBW of 54.5kg) Recommended Access Route: TF Laboratory values: Recent Labs Component Name 11/06/22 2312 11/06/22 0136 11/05/22 1124 10/20/22 0302 10/19/22 0824 10/19/22 0808 06/15/22 0757 12/09/18 0812 07/25/18205503/01/16 0817 0000 BUN 8 8 8 - [...] Progress: Continue with current goal Orquidea Pederson RD/ABIMBOLA, LD Ascom: [phone] * Rosa Vegas, PT - 11/07/2022 2:[address] [facility] Physical Medicine and Rehabilitation Physical Therapy Progress Note Patient: Consuelo Darby Med Record Number: [id number] Date of : 1980 Age: [age] year old PPE worn by staff: gloves;mask - procedural PPE worn by patient: gown - patient, clean;socks - clean Tech: Sary, PT student Recommendations: PT Discharge Recommendations: Patient [...] with BUE supported on table: reaching to roller picker object with RUE and placing object on various targets to L side of midline ACTIVITY TOLERANCE: Patient's activity tolerance: fair plus. TREATMENT/INTERVENTIONS: Patient seen for bed mobility training, sitting balance training, and seated therapeutic exercises with emphasis on neutral spine posture and gaze to midline/L side Modified Maryann: Current Modified Maryann Score: 5 [...] EOB x10 minutes with minimal assist ?? Conveyor Operator Goal(s): Patient to discharge to appropriate next [...] intact bilaterally Labs: Recent Labs Component Name 11/06/22231111/06/2213511/05/22 1227 10/23/22 0129 10/22/22 0153 WBC 4.7 6.5 7.9 6.9 - - RBC 3.20* 3.42* 3.28* 3.24* - - HGB 9.3* 10.0* 9.7* 9.7* - - HCT 29.5* 32.8* 30.2* 29.6* - - PLT - - - - 199 - = values in this interval not displayed. Recent Labs Component Name 11/06/22231111/06/2213511/05/22 1124 NA 140 139 139 CL 108* 111* 104 CO2 22 21* 23 BUN 8 8 8 CREATININE 0.46* 0.56 0.54* CALCIUM 8.5 8.3* 8.5 No results for input(s): MG in the last 53781 hours. Recent Labs Component Name 11/06/22 2312 11/06/22 0136 11/05/22 1124 PHOS 4.3 3.6 3.2 Recent Labs Component Name 11/07/22 0305 11/06/22 2312 11/06/22 1830 11/06/22 0740 11/06/22 0136 11/05/22 1115 11/05/22 0350 PT 18.4* - - - 17.1* - 15.5* INR 1.6 - - - 1.4 - 1.3 PTT - 63.4* 68.6* 97.1* 100.4* - 77.4* - = values in this interval not displayed. No results for input(s): A1C in the last 46796 hours. Recent Labs Component Name 10/20/22 0302 06/15/22 0757 CHOL 173 204* HDL 42 37* LDLCALC 91 117* TRIG 201* 251* Recent Labs Component Name 11/06/22 0136 TSH 1.682 No results for input(s): CKMB, CKTOTAL, CKMB, TROPONINI, BNP in the last [address] ANGIO BRAIN NECK STROKE Result [...] 130/82 11/06/222122 -- 86 -- (!) 135/101 11/06/221952 98.1 ??F (36.7 ??C) 84 18 [...] Name 11/06/22 2312 11/06/22 0136 11/05/22 1124 11/04/22 2128 NA 140 139 139 141 POTASSIUM 3.6 [...] Date/Time RESPIRATORY PANEL WITH SARS-COV-2 BY PCR (STL) [[id number]] (Normal) Collected: 11/05/22 1310 Lab Status: Final [...] via the [place] Pathway. CULTURE URINE [[id number]] (Normal) Collected: 11/05/22 1307 Lab Status: Final result Specimen: Urine Cath Straight Updated: 11/06/22 1617 Culture Urine No growth (<100 CFU/mL) CULTURE BLOOD [[id number]] (Normal) Collected: 11/05/22 1054 Lab Status: Preliminary result Specimen: Blood Peripheral Updated: 11/06/22 1400 Culture No growth 24 hours CULTURE URINE [[id number]] (Normal) Collected: 10/27/22 1208 Lab Status: Final result Specimen: Urine Clean Catch Updated: 10/28/22 2236 Culture Urine No growth (<100 CFU/mL) CULTURE BLOOD FUNGUS [[id number]] (Normal) Collected: 10/27/22 1158 Lab Status: Preliminary result Specimen: Blood Peripheral Updated: 11/06/22 0848 Culture No fungus isolated CULTURE BLOOD AFB [[id number]] (Normal) Collected: 10/27/22 1158 Lab Status: Preliminary result Specimen: Blood Peripheral Updated: 11/06/22 1135 Culture No acid-fast bacillus isolated BARTONELLA SPECIES PCR [[id number]] Collected: 10/27/22 1158 Lab Status: Final result [...] developed and its performance characteristics determined by [facility]. It has not been cleared or approved by the US Food and Drug Administration. This test was performed in a CLIA certified laboratory and is intended for clinical purposes. Performed By: [facility] [address] [place] [address] Film Spooler: Boo Bond MD, PhD CLIA Number: [id number] CULTURE BLOOD [[id number]] (Normal) Collected: 10/25/22 0900 Lab Status: Final result Specimen: Blood Peripheral Updated: 10/30/22 1330 Culture No growth day 5 CULTURE BLOOD [[id number]] (Normal) Collected: 10/24/22 1313 Lab Status: Final result Specimen: Blood Peripheral Updated: 10/29/22 1632 Culture No growth day 5 MRSA DNA PCR [[id number]] (Normal) Collected: 10/23/22 1234 Lab Status: Final result Specimen: Microbiology from Nasal Updated: 10/23/22 2044 MRSA DNA by PCR Not detected Narrative: Methicillin-resistant Staphylococcus aureus (MRSA) DNA is not detected (presumed not colonized withMRSA). CULTURE BLOOD [[id number]] (Normal) Collected: 10/23/22 1216 Lab Status: Final result Specimen: Blood Peripheral Updated: 10/28/22 1702 Culture No growth day 5 CULTURE BLOOD [[id number]] (Normal) Collected: 10/23/22 1205 Lab Status: Final [...] presence of the primary team staff, residents, PT/OT/MULTI SITE LEASING CONSULTANT and CM/SW. Jaime Drew MD Vascular and Interventional Neurology * Shania Troy OT - 11/07/2022 11:[address] [facility] Physical Medicine and Rehabilitation Occupational Therapy Progress Note Patient: Consuelo Darby Med Record Number: [id number] Date of : 1980 Age: [age] year old PPE worn by staff: gloves;mask - surgical appliances salesperson: Cheli Recommendations: Discharge OT Discharge Recommendations: Patient [...] Pt in semi fowlers upon arrival in [facility], sister present in room during session. LDA: [...] ACTIVITY TOLERANCE: Patient's activity tolerance: fair Modified Wetmore: Current Modified Wetmore Score: 5 AM-PAC 6 Clicks Daily Activity [...] with good endurance and with minimal pain Jail Goal(s): Patient to discharge to appropriate next [...] Leigh SLP - 11/07/2022 10:[address] [facility] Physical Medicine and Rehabilitation Swallow Treatment Patient: Consuelo Darby Med Record Number: [id number] Date of : 1980 Age: [age] year [...] Impression - Pharyngeal: Severe Treatment/Education/Interventions: While performing MULTI SITE LEASING CONSULTANT, Patient and sister was instructed in: goals [...] precautions., Patient will follow recommended swallowing strategies. Jail Goal (s): Patient to be independent/baseline with functional mobility and self care and be able to safely discharge to prior level of care. Jerry Valle M.A., [facility])-MULTI SITE LEASING CONSULTANT Speech Language Pathologist [phone] * Jaye Odell [...] Otoole MD - 11/07/2022 9:00 AM CDT [facility] Infectious Diseases Progress Note Admitted on: 10/19/2022 7:53 AM Hospital stay: Room: [facility]/ Attending: Jaime Drew MD Reason for ID [...] Cruz MD - 11/08/2022 11:42 AM CDT [facility] Infectious Diseases Attending Note Documentation Date/Time: 11/07/2022, [...] S/p 10/20 with neurosurgery for R sided nwjdyz-ypzskxy-euavbqxk decompressive sonya-craniectomy for treatment of refractory intracranial [...] elopement &/or abduction during hospitalization is minimized 11/07/2022537 by Awilda Li RN Outcome: Progressing 11/07/2022537 by Awilda Li RN Outcome: Progressing Problem: Pain/Discomfort Goal: Patient uses pharmacological and non-pharmacological pain management strategies. 11/07/2022537 by Awilda Li RN Outcome: Progressing [...] refrain from provoking others to physical harm. 11/07/2022537 by Awilda Li RN Outcome: Progressing [...] PM CDT Rapid Response [place] [address] Patient: Consuelo Darby : 1980 Location: [facility] Rapid Response Nurse (BANQUET COOK) continued rounding for follow up of pt's elevated temperature. Pt had a recent hemicraniectomy and ID was consulted and antibiotic regimen adjusted for coverage of endocarditis with possible vegetation. At the time of Night BANQUET COOK's rounding the pt's temp is 99.1 with [...] bilaterally Labs: Recent Labs Component Name 11/06/22 01311/05/22 1227 11/04/22212710/23/22 0129 10/22/22 0153 WBC 6.5 7.9 6.9 8.4 - - RBC 3.42* 3.28* 3.24* 3.73* - - HGB 10.0* 9.7* 9.7* 10.9* - - HCT 32.8* 30.2* 29.6* 34.6* - - PLT - - - - 199 - = values in this interval not displayed. Recent Labs Component Name 11/06/22 01311/05/22 1124 11/04/222127 NA 139 139 141 CL 111* 104 106 CO2 21* 23 25 BUN 8 8 8 CREATININE 0.56 0.54* 0.55* CALCIUM 8.3* 8.5 8.3* No results for input(s): MG in the last 87832 hours. Recent Labs Component Name 11/06/22 0136 11/05/22 1124 11/04/228 PHOS 3.6 3.2 3.4 Recent Labs Component Name 11/06/22 0740 11/06/22 0136 11/05/22 1658 11/05/22 1115 11/05/22 0350 11/04/22 0931 11/04/22 0553 PT - 17.1* - - 15.5* - 14.5 INR - 1.4 - - 1.3 - 1.1 PTT 97.1* 100.4* 27.5 - 77.4* - 96.7* - = values in this interval not displayed. No results for input(s): A1C in the last 48320 hours. Recent Labs Component Name 10/20/22 0302 06/15/22 0757 CHOL 173 204* HDL 42 37* LDLCALC 91 117* TRIG 201* 251* Recent Labs Component Name 11/06/22 0136 TSH 1.682 No results for input(s): CKMB, CKTOTAL, CKMB, TROPONINI, BNP in the last [address] ANGIO BRAIN NECK STROKE Result [...] None: Anticipated Discharge Date: 11/08/22: Discharge Plan: [facility] rehab once medically ready. SW following. On warfarin bridge now. Developed fever- consulted ID, broaden abx, Cxs, Ddimer, TSH Orientation Level: Unable to Obtain;Other (Comment) (Patient was more alert this date. Patient awares surrounding and responded to the question by gesture.): Family Support (Name and Phone): Extended Emergency Contact Information Primary Emergency Contact: Hi Darby Address: [address] [place] [address] [place] [address] [facility] Relation: Spouse Secondary Emergency Contact: Sandra Disla [facility] Mobile Relation: Mother Transportation at Discharge: Ambulance: READMISSION RISK SCORE is 16 at 3:24 PM 11/06/2022.: Name: Maru Mcduffie RN [phone] * Shania Troy OT - 11/06/2022 3:17 PM CDT [facility] Physical Medicine and Rehabilitation Occupational Therapy Splint [...] mg, Enteral Tube, once warfarin ?? [COMPLETED] ksznk-ell-ysyvqsnt (HOG) enema 360 mL, Rectal, Once CONTINUOUS [...] Date/Time RESPIRATORY PANEL WITH SARS-COV-2 BY PCR (STL) [[id number]] (Normal) Collected: 11/05/22 1310 Lab Status: Final [...] via the [place] Pathway. CULTURE URINE [[id number]] Collected: 11/05/22 1307 Lab Status: In process Specimen: Urine Cath Straight Updated: 11/05/22 1341 CULTURE BLOOD [[id number]] (Normal) Collected: 11/05/22 1054 Lab Status: Preliminary result Specimen: Blood Peripheral Updated: 11/06/22 1400 Culture No growth 24 hours CULTURE URINE [[id number]] (Normal) Collected: 10/27/22 1208 Lab Status: Final result Specimen: Urine Clean Catch Updated: 10/28/22 2236 Culture Urine No growth (<100 CFU/mL) CULTURE BLOOD FUNGUS [[id number]] (Normal) Collected: 10/27/22 1158 Lab Status: Preliminary result Specimen: Blood Peripheral Updated: 11/06/22 0848 Culture No fungus isolated CULTURE BLOOD AFB [[id number]] (Normal) Collected: 10/27/22 1158 Lab Status: Preliminary result Specimen: Blood Peripheral Updated: 11/06/22 1135 Culture No acid-fast bacillus isolated BARTONELLA SPECIES PCR [[id number]] Collected: 10/27/22 1158 Lab Status: Final result [...] developed and its performance characteristics determined by [facility]. It has not been cleared or approved by the US Food and Drug Administration. This test was performed in a CLIA certified laboratory and is intended for clinical purposes. Performed By: [facility] [address] [place] [address] Film Spooler: Boo Bond MD, PhD CLIA Number: [id number] CULTURE BLOOD [[id number]] (Normal) Collected: 10/25/22 0900 Lab Status: Final result Specimen: Blood Peripheral Updated: 10/30/22 1330 Culture No growth day 5 CULTURE BLOOD [[id number]] (Normal) Collected: 10/24/22 1313 Lab Status: Final result Specimen: Blood Peripheral Updated: 10/29/22 1632 Culture No growth day 5 MRSA DNA PCR [[id number]] (Normal) Collected: 10/23/22 1234 Lab Status: Final result Specimen: Microbiology from Nasal Updated: 10/23/22 2044 MRSA DNA by PCR Not detected Narrative: Methicillin-resistant Staphylococcus aureus (MRSA) DNA is not detected (presumed not colonized withMRSA). CULTURE BLOOD [[id number]] (Normal) Collected: 10/23/22 1216 Lab Status: Final result Specimen: Blood Peripheral Updated: 10/28/22 1702 Culture No growth day 5 CULTURE BLOOD [[id number]] (Normal) Collected: 10/23/22 1205 Lab Status: Final [...] presence of the primary team staff, residents, PT/OT/MULTI SITE LEASING CONSULTANT and CM/SW. Jaime Drew MD Vascular and [...] changes in diet or consulting a health floor care technician before changes are made. Potential for other medications to interact with warfarin therapy and advised not to take start or discontinue any medication or uxjf-xkt-empnbqg medication without the advice of their health floor care technician. Signs and symptoms of bleeding were explained as warfarin increases the risk of bleeding. Gave written documentation to have INR checked 1 to 5 days of discharge. The patient and her family (, Father, and Aunt) verbalized understanding. Opportunities for questions provided. Jonah Montana, PharmD Candidate 2023 Shania Jha PharmD 11/06/2022 12:59 PM Department of Pharmacy, Ext: [phone] * Ankit Spivey - 11/06/2022 11:[address] [facility] Physical Medicine and Rehabilitation Physical Therapy Progress Note Patient: Consuelo Darby Med Record Number: [id number] Date of : 1980 Age: [age] year [...] monitoring of vitals and cognitive stimulation Modified Wetmore: Current Modified Wetmore Score: 5 AM-PAC 6 Clicks Mobility Raw [...] EOB x10 minutes with minimal assist ?? 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 I agree with the findings as described in the note, including the history, interval changes, ROS, examination, objective data interpretation, impression and plan as documented. Angelica Cruz MD Infectious Diseases Attending * Zenia Heath - 11/06/2022 9:12 AM CDT Discharge spares scheduler received request from to schedule a follow up appointment with CT Scan. This typewriter repairer sent a request via [employer] to [facility] to assist with scheduling an appointment. The patient's chart will be updated once an appointment has been made. The patient will continued to be followed for their discharge planning needs. 11/06/2022 Zenia Heath 3 * Melany Cali RN - 11/06/2022 8:32 AM CDT Rapid Response Nurse Rounding Note [address] [address] Patient: Consuelo Darby : 1980 Location: Rapid [...] 1:33 AM CDT Ptt scheduled for 2144. Dietitian Helper couldn't get vein and wasn't notified. I [...] PM CDT Rapid Response [place] [address] Patient: Consuelo Darby : 1980 Location: [facility]/ Patient rounding completed by BANQUET COOK, respirations even and unlabored. Continued fevers, however, [...] Perry OT - 11/05/2022 2:54 PM CDT [facility] Physical Medicine and Rehabilitation Occupational Therapy Splint [...] Ramsey MD - 11/05/2022 1:34 PM CDT [facility] Infectious Diseases Progress Note Admitted on: 10/19/2022 7:53 AM Hospital stay: Room: [facility]/ Attending: Jaime Drew MD Reason for IDf/u: [...] or tick bites. She lives with in [place], [place]. 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 They recently went to a trip to [place] for vacation, she bathed in the sea [...] the nurse, she has some discharged [facility]. U/A and Ucx were sent. SUBJECTIVE [...] heparin, 500-2,150 Units/hr, Last Rate: 1,350 Units/hr (11/04/22 2212) PRN Medications ??? SALINE LOCK, INSERT AND [...] BMP: Recent Labs Component Name 11/05/22 1124 11/04/228 11/04/22 0553 10/20/22 0302 10/19/22 0824 06/15/22 0757 [...] Clarity UA Clear Slt Cloudy ! Specific Alexander UA 1.005 - 1.030 1.016 pH UA [...] 102.2 ??F (39 ??C) 103 -- 126/74 11/05/22 1118 (!) 103 ??F (39.4 ??C) -- [...] 103 ??F (39.4 ??C) -- -- -- 11/04/229 -- (!) 110 -- 154/76 11/04/225 99.8 ??F (37.7 ??C) 109 18 146/72 [...] 3.9 CL 104 106 104 103 CO2 BUN 8 8 9 11 CREATININE 0.54* 0.55* 0.56 0.55* CALCIUM 8.5 8.3* 8.6 8.9 MAGNESIUM 2.0 2.3 2.0 1.9 PHOS 3.2 3.4 3.8 4.2 Recent Labs Component Name 11/04/22212711/02/22 2221 11/02/22 0132 11/01/22 0003 WBC 8.4 [...] Procedure Component Value - Date/Time CULTURE BLOOD [[id number]] Collected: 11/05/22 1054 Lab Status: In process Specimen: Blood Peripheral Updated: 11/05/22 1123 CULTURE URINE [[id number]] Lab Status: No result Specimen: Urine Cath Straight RESPIRATORY PANEL WITH SARS-COV-2 BY PCR (STL) [[id number]] Lab Status: No result Specimen: Microbiology from Nasopharyngeal CULTURE URINE [[id number]] (Normal) Collected: 10/27/22 1208 Lab Status: Final result Specimen: Urine Clean Catch Updated: 10/28/22 2236 Culture Urine No growth (<100 CFU/mL) CULTURE BLOOD FUNGUS [[id number]] (Normal) Collected: 10/27/22 115 Lab Status: Preliminary result Specimen: Blood Peripheral Updated: 10/30/22 0628 Culture No fungus isolated CULTURE BLOOD AFB [[id number]] (Normal) Collected: 10/27/22 115 Lab Status: Preliminary result Specimen: Blood Peripheral Updated: 10/30/22 0750 Culture No acid-fast bacillus isolated BARTONELLA SPECIES PCR [[id number]] Collected: 10/27/22 115 Lab Status: Final result [...] developed and its performance characteristics determined by [facility]. It has not been cleared or approved by the US Food and Drug Administration. This test was performed in a CLIA certified laboratory and is intended for clinical purposes. Performed By: [facility] [address] [place] [address] Film Spooler: Boo Bond MD, PhD CLIA Number: [id number] CULTURE BLOOD [[id number]] (Normal) Collected: 10/25/22 0900 Lab Status: Final result Specimen: Blood Peripheral Updated: 10/30/22 1330 Culture No growth day 5 CULTURE BLOOD [[id number]] (Normal) Collected: 10/24/22 1313 Lab Status: Final result Specimen: Blood Peripheral Updated: 10/29/22 1632 Culture No growth day 5 MRSA DNA PCR [[id number]] (Normal) Collected: 10/23/22 1234 Lab Status: Final result Specimen: Microbiology from Nasal Updated: 10/23/222043 MRSA DNA by PCR Not detected Narrative: Methicillin-resistant Staphylococcus aureus (MRSA) DNA is not detected (presumed not colonized withMRSA). CULTURE BLOOD [[id number]] (Normal) Collected: 10/23/22 1216 Lab Status: Final result Specimen: Blood Peripheral Updated: 10/28/22 1702 Culture No growth day 5 CULTURE BLOOD [[id number]] (Normal) Collected: 10/23/22 1205 Lab Status: Final [...] presence of the primary team staff, residents, PT/OT/MULTI SITE LEASING CONSULTANT and CM/SW. Jaime Drew MD Vascular and [...] (37.7 ??C) Axillary 109 18 97 % 11/04/22 1712 146/88 99.9 ??F (37.7 ??C) Oral 93 [...] intact bilaterally Labs: Recent Labs Component Name 11/04/22212711/02/22 2221 11/02/22 0132 10/23/22 0129 10/22/22 0153 WBC 8.4 13.3* 19.3* - - RBC 3.73* 3.44* 3.32* - - HGB 10.9* 10.3* 10.0* - - HCT 34.6* 32.0* 31.1* - - PLT - - - - 199 - = values in this interval not displayed. Recent Labs Component Name 11/04/22212711/04/22 0553 11/02/222220 NA 141 139 138 CL 106 104 103 CO2 25 25 23 BUN 8 9 11 CREATININE 0.55* 0.56 0.55* CALCIUM 8.3* 8.6 8.9 No results for input(s): MG in the last 49635 hours. Recent Labs Component Name 11/04/22212711/04/2253 11/02/222220 PHOS 3.4 3.8 4.2 Recent Labs Component Name 11/05/22 0350 11/04/22212711/04/22 1617 11/04/22 0931 11/04/22 0553 11/03/22 2353 PT 15.5* - - - 14.5 14.2 INR 1.3 - - - 1.1 1.1 PTT 77.4* 53.3* 131.0* - 96.7* 77.9* - = values in this interval not displayed. No results for input(s): A1C in the last 13386 hours. Recent Labs Component Name 10/20/22 0302 06/15/22 0757 CHOL 173 204* HDL 42 37* LDLCALC 91 117* TRIG 201* 251* Recent Labs Component Name 06/15/22 0757 TSH 1.873 No results for input(s): CKMB, CKTOTAL, CKMB, TROPONINI, BNP in the last [address] ANGIO BRAIN NECK STROKE Result [...] no Vickie Muller MD Neurology Resident * Jovanni Mcgrath, PharmD - 11/05/2022 8:18 AM CDT ACTIVE [...] Lopez OT - 11/05/2022 7:50 AM CDT [facility] Acute Rehab update: Patient not yet medically ready to transfer to [place] today. Per bedside RN Shahab, patient remains on heparin drip this morning. Notified team, no documented BM since 10/30. U CL will follow up tomorrow. Thanks! Gianna Lopez OTR/Amy Clinical Liaison [facility] [phone] * Susi Glez MD - 11/05/2022 7:29 AM CDT Neurosurgery called to bedside. Patient reportedly hit her head while being adjusted in bed underneath crani site. Patient began complaining of severe headaches. On exam, patient somnolent but awakens to gentle stimulation, follows commands on RUE and RLE. Repeat CT shows stable hemicrani site, no signs of ICH [place] removed at bedside today. Wound healing well. [...] findings of outpatient SARAH. Lul Miguel PA-C [phone] * Awilda Li RN - 11/05/2022 6:37 [...] Lopez OT - 11/04/2022 2:40 PM CDT [facility] Acute Rehab update: Per Dr. Muller - patient likely to be medically ready for d/c tomorrow. Will follow up in the morning. Would have private room available at [facility]. Addendum: Per chart review, last documented BM 10/30 - would need more recent BM before patient can transfer to rehab once team determines she is medically ready. Thanks for referral, Gianna Lopez OTR/L Clinical Liaison [facility] [phone] * Jaime Drew MD - 11/04/2022 1:21 [...] 3.7 CL 104 103 108* 105 CO2 BUN 9 11 10 8 CREATININE 0.56 [...] Procedure Component Value - Date/Time CULTURE URINE [[id number]] (Normal) Collected: 10/27/22 1208 Lab Status: Final result Specimen: Urine Clean Catch Updated: 10/28/22 2236 Culture Urine No growth (<100 CFU/mL) CULTURE BLOOD FUNGUS [[id number]] (Normal) Collected: 10/27/22 115 Lab Status: Preliminary result Specimen: Blood Peripheral Updated: 10/30/22 0628 Culture No fungus isolated CULTURE BLOOD AFB [[id number]] (Normal) Collected: 10/27/221157 Lab Status: Preliminary result Specimen: Blood Peripheral Updated: 10/30/22 0750 Culture No acid-fast bacillus isolated BARTONELLA SPECIES PCR [[id number]] Collected: 10/27/221157 Lab Status: Final result Specimen: [...] developed and its performance characteristics determined by [facility]. It has not been cleared or approved by the US Food and Drug Administration. This test was performed in a CLIA certified laboratory and is intended for clinical purposes. Performed By: [facility] [address] [place] [address] Film Spooler: Boo Bond MD, PhD CLIA Number: [id number] CULTURE BLOOD [[id number]] (Normal) Collected: 10/25/22 0900 Lab Status: Final result Specimen: Blood Peripheral Updated: 10/30/22 1330 Culture No growth day 5 CULTURE BLOOD [[id number]] (Normal) Collected: 10/24/22 1313 Lab Status: Final result Specimen: Blood Peripheral Updated: 10/29/22 1632 Culture No growth day 5 MRSA DNA PCR [[id number]] (Normal) Collected: 10/23/22 1234 Lab Status: Final result Specimen: Microbiology from Nasal Updated: 10/23/22 2044 MRSA DNA by PCR Not detected Narrative: Methicillin-resistant Staphylococcus aureus (MRSA) DNA is not detected (presumed not colonized withMRSA). CULTURE BLOOD [[id number]] (Normal) Collected: 10/23/22 1216 Lab Status: Final result Specimen: Blood Peripheral Updated: 10/28/22 1702 Culture No growth day 5 CULTURE BLOOD [[id number]] (Normal) Collected: 10/23/22 1205 Lab Status: Final [...] presence of the primary team staff, residents, PT/OT/MULTI SITE LEASING CONSULTANT and CM/SW. Jaime Drew MD Vascular and Interventional Neurology * Jovanni Mcgrath, PharmD - 11/04/2022 12:47 PM CDT ACTIVE CONSULTS TO PHARMACY/DISEASE STATE MONITORING Pharmacy Consult: Vancomycin ASSESSMENT/PLAN Indication: suspected infective endocarditis c/b septic emboli to CONSTRUCTION CODE ADMINISTRATOR Goal Trough: 15-20 mcg/ml ID consulted/following: Yes [...] needed. Jovanni Mcgrath, PharmD 12:41 PM 11/04/2022 [facility] Vancomycin Guideline SUBJECTIVE/OBJECTIVE Consuelo Darby is a [...] 8 WBC - 13.3* 19.3* 20.6* 19.6* @[id number]@ Dialysis Orders (72h ago, onward) None Vancomycin Administrations from MAR (last 72 hours) [...] who is agreeable to private room at [facility] if it becomes available before [facility]. [facility] liaison aware and following for admission. Orientation Level: Oriented to Person: Family Support (Name and Phone): Extended Emergency Contact Information Primary Emergency Contact: Hi Darby Address: [address] [place] [address] [place] [address] [facility] Relation: Spouse Secondary Emergency Contact: Sandra Disla [facility] Mobile Relation: Mother Transportation at Discharge: Ambulance: READMISSION RISK SCORE is 16 at 12:46 PM 11/04/2022.: Name: JAYLENE Haines * Bess Triana COTA - 11/04/2022 11:14 AM CDT [facility] Physical Medicine and Rehabilitation Occupational Therapy Splint Check Note Patient Name Consuelo Darby Date of 1980 Age [age] year old Type of Splint: Left foot drop and resting hand Splint Issued by: Not applicable-follow up visit Splint Check Completed: No issues noted. Skin intact and splint fitting appropriately Treatment Plan: [employer] E Business Developer education completed.; 2 hrs on 2 hrs off. 11/04/2022 * Jovanni Mcgrath, ManuelD - 11/04/2022 10:20 AM CDT ACTIVE CONSULTS [...] INR 3. Bridging therapy with heparin drip @IMAN@ Consuelo Darby is a 42 year [...] intact bilaterally Labs: Recent Labs Component Name 11/02/22222011/02/22 0132 11/01/22 0003 10/23/22 0129 10/22/22 0153 WBC 13.3* 19.3* 20.6* - - RBC 3.44* 3.32* 3.41* - - HGB 10.3* 10.0* 10.1* - - HCT 32.0* 31.1* 31.6* - - PLT - - - - 199 - = values in this interval not displayed. Recent Labs Component Name 11/04/22 0553 11/02/22222011/02/22 013 NA 139 138 138 CL 104 103 108* CO2 BUN 9 11 10 CREATININE 0.56 0.55* 0.48* CALCIUM 8.6 8.9 8.6 No results for input(s): MG in the last 19777 hours. Recent Labs Component Name 11/04/22 0553 11/02/22222011/02/22 0132 PHOS 3.8 4.2 4.5 Recent Labs Component Name 11/04/22 0553 11/03/22 2353 11/03/22 1626 11/03/22 1048 11/03/22 0449 PT 14.5 14.2 - - 15.1* INR 1.1 1.1 - - 1.2 PTT 96.7* 77.9* 58.8* - 89.3* - = values in this interval not displayed. No results for input(s): A1C in the last 31501 hours. Recent Labs Component Name 10/20/22 0302 06/15/22 0757 CHOL 173 204* HDL 42 37* LDLCALC 91 117* TRIG 201* 251* Recent Labs Component Name 06/15/22 0757 TSH 1.873 No results for input(s): CKMB, CKTOTAL, CKMB, TROPONINI, BNP in the last [address] ANGIO BRAIN NECK STROKE Result [...] no Atrial Fibrillation: no Tobacco: no Vickie Mullre MD Neurology Resident * Jabari Black, PharmD [...] 36.05 kg/m??. Serum creatinine: 0.55 mg/dL (L) 11/02/22 2221 Estimated creatinine clearance: 152.2 mL/min (A) * [...] in route. On arrival patient noted to kurtis astorga, Amy hemainopsia, mild dysarthria, andextinction. NIHSS: 7. S/p [...] intact bilaterally Labs: Recent Labs Component Name 11/02/22222011/02/2213111/01/22 0003 10/23/22 0129 10/22/22 0153 WBC 13.3* 19.3* 20.6* - - RBC 3.44* 3.32* 3.41* - - HGB 10.3* 10.0* 10.1* - - HCT 32.0* 31.1* 31.6* - - PLT - - - - 199 - = values in this interval not displayed. Recent Labs Component Name 11/02/22222011/02/2213111/01/22 0003 NA 138 138 139 CL 103 108* 105 CO2 BUN 11 10 8 CREATININE 0.55* 0.48* 0.56 CALCIUM 8.9 8.6 8.7 No results for input(s): MG in the last 17883 hours. Recent Labs Component Name 11/02/22222011/02/222 11/01/22 0003 PHOS 4.2 4.5 4.1 Recent Labs Component Name 11/03/22 1048 11/03/22 0449 11/02/22222011/02/22 0445 11/02/22 0132 11/01/22 0848 11/01/22 0240 PT - 15.1* - - 15.1* - 14.3 INR - 1.2 - - 1.2 - 1.1 PTT 84.5* 89.3* 58.3* - 48.3* - 67.7* - = values in this interval not displayed. No results for input(s): A1C in the last 61175 hours. Recent Labs Component Name 10/20/22 0302 06/15/22 0757 CHOL 173 204* HDL 42 37* LDLCALC 91 117* TRIG 201* 251* Recent Labs Component Name 06/15/22 0757 TSH 1.873 No results for input(s): CKMB, CKTOTAL, CKMB, TROPONINI, BNP in the last [address] ANGIO BRAIN NECK STROKE Result [...] of Service: 11/03/2022 Jim Walter MD * WoodrowShania, OT - 11/03/2022 3:[address] 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 LDA: PIV, puentes catheter, PEG Mental Status/Cognition: [...] ACTIVITY TOLERANCE: Patient's activity tolerance: good Modified Wetmore: Current Modified Wetmore Score: 5 AM-PAC 6 Clicks Daily Activity [...] with good endurance and with minimal pain Conveyor Operator Goal(s): Patient to discharge to appropriate next [...] Hinojosa RN - 11/03/2022 3:03 PM CDT [facility] has been accepted, Insurance authorization obtained, pending private room. Pt agreeable to [facility] location. Please contact weekend liaison for bed availability if pt is medically ready for transfer. Liaison can be contacted by phone or [employer] Chat. ?? Weekend Liaison: Gianna Lopez Thank you for the referral. Becky Hinojosa RN, BSN Senior Clinical Liaison [facility] [phone] * Maru Mcduffie RN - 11/03/2022 12:39 PM CDT [...] Contact Information Primary Emergency Contact: MehnazHi Address: [address] [place] [id number] [facility] Relation: Spouse Secondary Emergency Contact: Sandra Disla [facility] Mobile Relation: Mother Transportation at Discharge: Ambulance: READMISSION RISK SCORE is 16 at 12:39 PM 11/03/2022.: Name: Maru Mcduffie RN [id number] * Salinas Infante MSW - 11/03/2022 10:35 AM CDT SW was notified pt recd for IRF/acute rehab. Previous SW spoke to [facility] and they are following up w/ pt family at bedside to discuss. SW to follow. 1110 - SW notified pt family agreeable to [facility] Rehab. SW also called and spoke w/ pt Salo to discuss questions he had regarding pt insurance and disability. SW encouraged Salo to call pt's insurance for specific questions regarding it as SW is unable to answer these. JESSY also advised we can send a referral to [facility] for disability application and Salo was agreeable. JESSY to follow. * Ankit Spivey - 11/03/2022 10:[address] [facility] Physical Medicine and Rehabilitation Physical Therapy Progress Note Patient: Consuelo Darby Med Record Number: [id number] Date of : 1980 Age: [age] year [...] monitoring of vitals and cognitive stimulation Modified Wetmore: Current Modified Wetmore Score: 5 AM-PAC 6 Clicks Mobility Raw [...] EOB x10 minutes with minimal assist ?? Jail Goal(s): Patient to discharge to appropriate next [...] cues visible on white board. * Orquidea Pederson, TIO/MELVA - 11/03/2022 8:12 AM CDT Clinical Nutrition [...] Pain affecting intake: No Estimated Needs: KCAL: 2060-1110 (30-35 kcal/kg IBW) Protein (g): 82g (1.5 [...] Progress: Continue with current goal Orquidea Pederson RD/ABIMBOLA, MELVA Ascom: [id number] * Jessica Enriquez RN - [...] stable or improving Outcome: Progressing * Shania Troy, OT - 11/02/2022 12:[address] [facility] Physical Medicine and Rehabilitation Occupational Therapy Progress Note Patient: Consuelo Darby Med Record Number: [id number] Date of : 1980 Age: [age] year [...] Appearance: Pt in bed upon arrival in [facility]. LDA: PIV, puentes catheter, PEG Vitals: (*Assess [...] ACTIVITY TOLERANCE: Patient's activity tolerance: fair Modified Wetmore: Current Modified Maryann Score: 5 AM-PAC 6 [...] with good endurance and with minimal pain Conveyor Operator Goal(s): Patient to discharge to appropriate next [...] suspected infective endocarditis c/b septic emboli to CONSTRUCTION CODE ADMINISTRATOR Goal Trough: 15-20 mcg/ml ID consulted/following: Yes [...] needed. Shania Jha, PharmD 12:30 PM 11/02/2022 [facility] Vancomycin Guideline SUBJECTIVE/OBJECTIVE Consuelo Darby is a [...] 8 11 WBC 19.3* 20.6* 19.6* 17.9* @[id number]@ Dialysis Orders (72h ago, onward) None Radiocontrast [...] Ankit Spivey - 11/02/2022 11:[address] [facility] Physical Medicine and Rehabilitation Physical Therapy Progress Note Patient: Consuelo Darby Med Record Number: [id number] Date of : 1980 Age: [age] year [...] monitoring of vitals and cognitive stimulation Modified Wetmore: Current Modified Wetmore Score: 5 AM-PAC 6 Clicks Mobility Raw [...] sit EOB x10 minutes with minimal assist Jail Goal(s): Patient to discharge to appropriate next [...] frontal gyrus/frontal operculum, consistent with an evolving dnfpbztm-vw-dlwomgl infarct. 4.No significant midline shift. Similar-appearing size [...] report is dictated by Kayla Stevenson MD (residential sales) 1 I, Lonnie Rae MD have personally [...] report is dictated by Miranda Bowen MD (residential sales) Oriana Ornelas MD have personally reviewed and [...] verification. > Dictated by Clarisa Cantrell MD (residential sales). [employer]Alexx have personally reviewed and interpreted this [...] report is dictated by Miranda Bowen MD (residential sales) Joni Ornelas MD have personally reviewed and [...] right lateral ventricle, and approximately 3-4 mm gxxiq-su-kftr midline shift, grossly similar to the prior. [...] verification. Report dictated by Tim Major MD (residential sales). I, Jasper Sifuentes MD have personally reviewed [...] insertion. The externally removable 24 Fr Ramez- m2p-labs gastrostomy tube was lubricated. The G-tube was [...] be performed given no participation in of MULTI SITE LEASING CONSULTANT evaluation S/p peg placed 11/01 Recommendations: - [...] Jerod Calderon MD Gastroenterology & Hepatology Fellow [facility] Associated attestation - Khanh Metz MD - 11/02/2022 10:43 AM CDT I have personally seen and examined this patient. I agree with the house mover's findings, assessment and plan as outlined. Doing well. Some pain at PEG site Site clean, dry. No cellulitis CT reviewed. Good position May start TF's today * Bridgett Zazueta, MULTI SITE LEASING CONSULTANT - 11/02/2022 9:[address] [facility] Physical Medicine and Rehabilitation Bedside Swallow Assessment Patient: Consuelo Darby Med Record Number: [id number] Date of : 1980 Age: [age] year [...] clear and barely audible. Education/Interventions: While performing MULTI SITE LEASING CONSULTANT, Patient, spouse, mother and father and RN [...] oropharyngeal swallow function to warrant diet upgrade. Conveyor Operator Goal (s): Other: patient will tolerate least [...] and patch angioplasty. 10/31: CT A/P obtained 2/ concern for abscess by GI team while [...] bilaterally Labs: Recent Labs Component Name 11/02/22 01311/01/22 0003 10/31/22 0022 10/23/22 0129 10/22/22 0153 WBC 19.3* 20.6* 19.6* - - RBC 3.32* 3.41* 3.30* - - HGB 10.0* 10.1* 9.9* - - HCT 31.1* 31.6* 30.4* - - PLT - - - - 199 - = values in this interval not displayed. Recent Labs Component Name 11/02/22 01311/01/22 0003 10/31/22 0022 NA 138 139 140 CL 108* 105 107 CO2 22 25 24 BUN 10 8 8 CREATININE 0.48* 0.56 0.56 CALCIUM 8.6 8.7 8.4 No results for input(s): MG in the last 13836 hours. Recent Labs Component Name 11/02/22 01311/01/22 0003 10/31/22 0022 PHOS 4.5 4.1 4.1 Recent Labs Component Name 11/02/22 0445 11/02/22 0132 11/01/22 0848 11/01/22 0240 10/31/22 0948 10/31/22 0022 PT - 15.1* - 14.3 - 14.5 INR - 1.2 - 1.1 - 1.1 PTT 52.5* 48.3* 43.6* 67.7* - - - = values in this interval not displayed. No results for input(s): A1C in the last 76190 hours. Recent Labs Component Name 10/20/22 0302 06/15/22 0757 CHOL 173 204* HDL 42 37* LDLCALC 91 117* TRIG 201* 251* Recent Labs Component Name 06/15/22 0757 TSH 1.873 No results for input(s): CKMB, CKTOTAL, CKMB, TROPONINI, BNP in the last [address] ANGIO BRAIN NECK STROKE Result [...] level for age, diagnosis and physical limitations 2022 181 by Radha Covarrubias RN Outcome: Progressing 2022 1635 by Radha Covarrubias RN Outcome: Progressing Goal: Continuum of care needs are further met through referral to outpatient services when appropriate. 2022 181 by Radha Covarrubias RN Outcome: Progressing 2022 1635 by Radha Covarrubias RN Outcome: Progressing Goal: Patient reports the ability to perform Activities of Daily Living. 2022 181 by Radha Covarrubias RN Outcome: Progressing 2022 1635 by Radha Covarrubias RN Outcome: Progressing Problem: Communication Impairment/Dysarthria Goal: Ability to express needs and understand communication 2022 181 by Radha Covarrubias RN Outcome: Progressing 2022 1635 by Radha Covarrubias RN Outcome: Progressing Problem: Nutrition Goal: Nutritional status is improving 11/01/20221809 by Radha Covarrubias RN Outcome: Progressing 2022 1635 by Radha Covarrubias RN Outcome: Progressing Problem: Glycemic Control Goal: Clinical indication of glycemia balance is achieved 11/01/20221809 by Radha Covarrubias RN Outcome: Progressing 2022 1635 by Radha Covarrubias RN Outcome: Progressing Problem: Knowledge Deficit,Education,Discharge Plan Goal: The patient/family will understand cerebrovascular disease and its symptoms, treatment and management 2022 181 by Radha Covarrubias RN Outcome: [...] allow for safe consumption of daily meals 2022 181 by Radha Covarrubias RN Outcome: [...] or actual loss of control occurs. 2022 181 by Radha Covarrubias RN Outcome: Progressing 2022 1635 by Radha Covarrubias RN Outcome: Progressing Goal: Patient will refrain from provoking others to physical harm. 11/01/20221809 by Radha Covarrubias RN Outcome: Progressing 2022 1635 by Radha Covarrubias RN Outcome: Progressing Goal: Patient will display nonviolent behaviors toward others in the hospital, with the aid of medications and nursing interventions. 2022 181 by Radha Covarrubias RN Outcome: Progressing 2022 1635 by Radha Covarrubias RN Outcome: Progressing Goal: Patient will seek help when experiencing aggressive impulses. 11/01/20221809 by Radha Covarrubias RN Outcome: Progressing 2022 1635 by Radha Covarrubias RN Outcome: Progressing Goal: Patient will refrain from verbal threats and loud, profrane language toward others. 11/01/20221809 by Radha Covarrubias RN Outcome: Progressing 2022 1635 by Radha Covarrubias RN Outcome: Progressing Goal: Patient will be safe and free from injury. 2022 181 by Radha Covarrubias RN Outcome: Progressing 2022 1635 by Radha Covarrubias RN Outcome: Progressing Problem: Skin Integrity Goal: Skin integrity is maintained or improved 11/01/20221809 by Radha Covarrubias RN Outcome: Progressing [...] 2022 4:07 PM CDT Pt transferred to [facility], DOC and family notified. Four eyes skin check done with Jaye BOGGS, surgical sight to L. Head with carla, incision sight to R. Femoral area, puentes and L. Hand brace noted. * Cass Benjamin SLP - 2022 3:49 PM CDT [facility] Department of Physical Medicine & Rehabilitation Progress Note Patient: Consuelo Darby Med Record Number: [id number] Date of : 1980 Age: [age] year old 11/01/22 1549 Therapy on Hold Therapy on Hold Chart Reviewed; Pt s/p EGD with PEG under general anesthesia. New Order Required for Therapy Cass Lu M.S., [facility])-MULTI SITE LEASING CONSULTANT Speech Language Pathologist [id number] * Jerod Calderon [...] Jerod Calderon MD Gastroenterology & Hepatology Fellow [facility] * Elizabeth William PT - 2022 3:08 PM CDT [facility] Department of Physical Medicine & Rehabilitation Progress Note Patient: Consuelo Stock [employer] Record Number: [id number] Date of : 1980 Age: [age] year old 11/01/22 1508 Missed Visit Missed Visit Procedure Off Floor (going for PEG today) * Ronda Crawley OT - 2022 1:30 PM CDT [facility] Department of Physical Medicine & Rehabilitation Progress Note Patient: Consuelo Darby [employer] Record Number: [id number] Date of : 1980 Age: [age] year [...] -- -- -- 75 -- 96 % 10/31/222017 129/58 -- -- 97 -- -- 10/31/221999 -- 98.3 ??F (36.8 ??C) Axillary 105 [...] results for input(s): MG in the last 40683 hours. Recent Labs Component Name 11/01/22 0003 [...] results for input(s): A1C in the last 03083 hours. Recent Labs Component Name 10/20/22 0302 06/15/22 0757 CHOL 173 204* HDL 42 37* LDLCALC 91 117* TRIG 201* 251* Recent Labs Component Name 06/15/22 0757 TSH 1.873 No results for input(s): CKMB, CKTOTAL, CKMB, TROPONINI, BNP in the last [address] ANGIO BRAIN NECK STROKE Result Date: 10/19/2022 PROCEDURE: CT ANGIO BRAIN NECK STROKE, DATE/TIME OF EXAM: 10/19/2022 8:16 AM, LOCATION [facility] INDICATION: Code Stroke ADDITIONAL CLINICAL [...] DATE/TIME OF EXAM: 10/19/2022 8:04 AM, LOCATION [facility] INDICATION: Code Stroke ADDITIONAL CLINICAL [...] occlusion of the R EIA + proximal BUSINESS INFORMATION ANALYST 10/26: reached goal aptt overnight. Neuro exam [...] for occlusion of R EIA and proximal BUSINESS INFORMATION ANALYST. Thrombectomy and patch angioplasty done 10/31: GI [...] (POA: Unknown) Hypertension (POA: Unknown) Assessment Consuelo R Kvale is a 42 year old female presenting [...] occlusion of the R EIA + proximal BUSINESS INFORMATION ANALYST likely iatrogenic Plan Neurological R MCA M1 occlusion s/p MT with TICI 2B recanalization S/P TNK administration. S/P [facility] Malignant MCA syndrome - S/P hemicrani [...] - Diet: Goal TF Vital 55cc/hr, FWF [id number] - GI ppx: Lansoprozole - Last BM: [...] #Occlusion of the R EIA + proximal BUSINESS INFORMATION ANALYST likely iatrogenic - vascular surgery; OR today [...] bedside Fariha Rosales MD Neurology Resident. PGY-3 [facility]. Associated attestation - Julio Cesar Arriaza MD [...] get it in a day or two. Land Leasing Information Clerk asked how Consuelo's vascular surgery went and Sandra shared that Consuelo's leg was hurting; Consuelo held up 4 fingers when asked to rate her pain scale. RN at bedside and indicated he had just administered pain meds. 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 Yoon Cuadra, PharmD 1:04 PM 10/31/2022 [facility] Vancomycin Guideline * Ronda Crawley OT - 10/31/2022 2:12 PM CDT [facility] Physical Medicine and Rehabilitation Occupational Therapy Splint [...] results for input(s): MG in the last 92883 hours. Recent Labs Component Name 10/31/22 0022 [...] results for input(s): A1C in the last 48326 hours. Recent Labs Component Name 10/20/22 0302 06/15/22 0757 CHOL 173 204* HDL 42 37* LDLCALC 91 117* TRIG 201* 251* Recent Labs Component Name 06/15/22 0757 TSH 1.873 No results for input(s): CKMB, CKTOTAL, CKMB, TROPONINI, BNP in the last [address] ANGIO BRAIN NECK STROKE Result Date: 10/19/2022 PROCEDURE: CT ANGIO BRAIN NECK STROKE, DATE/TIME OF EXAM: 10/19/2022 8:16 AM, LOCATION [facility] INDICATION: Code Stroke ADDITIONAL CLINICAL [...] DATE/TIME OF EXAM: 10/19/2022 8:04 AM, LOCATION [facility] INDICATION: Code Stroke ADDITIONAL CLINICAL [...] cessation: N/A Migraine - verapamil 40 TID GENESSI - cont home amitriptyline Cardiovascular ? Vegetation [...] Other (Comment) (has not been assessed by MULTI SITE LEASING CONSULTANT) Pain affectingintake: No Estimated Needs: KCAL: 3834-4685 (25-30kcal/kg of IBW) Protein (g): 66-77 (1.2-1.4gm/kg of IBW) Fluid (ml): 1 ml/kcal Needs based on: Kcal/kg- (Comment) (55kcal/kg of IBW) Recommended Access Route: TF Laboratory values: Recent Labs Component Name 10/31/22 0022 10/30/22 0017 10/29/22 0010 10/20/22 0302 10/19/22 0824 10/19/22 0808 06/15/22 0757 12/09/18 0812 07/25/186 03/01/16 0817 0000 BUN 8 11 9 - [...] occlusion of the R EIA + proximal BUSINESS INFORMATION ANALYST 10/26: reached goal aptt overnight. Neuro exam [...] for occlusion of R EIA and proximal BUSINESS INFORMATION ANALYST. 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 S/P [facility] Malignant MCA syndrome - S/P hemicrani [...] not a candidate at this time. - 8/16 started heparin drip. aptt goal 60-80, no [...] after hemicrani on 10/20. Extubated 10/24, to NH - Bronchial hygiene q4h, vest and if [...] - Diet: Goal TF Vital 55cc/hr, FWF 006nmr5n - GI ppx: Lansoprozole - Last BM: 10/30 - BM regimen: senna and miralax - GI consult for PEG placement. Will follow up Endocrine Patient was taking oral contraceptive home medication. - A1c 6.0 - Accuchecks Hematology Recent Labs Component Name 10/31/22 0022 10/27/22202810/27/22 0054 WBC 19.6* - 19.5* HGB 9.9* - 8.0* HCT 30.4* - 24.6* PLTCOUNT 442* - 519* PLATELET - - Occasional* - = values in this interval not displayed. #Occlusion of the R EIA + proximal BUSINESS INFORMATION ANALYST likely iatrogenic - vascular surgery; OR today [...] bedside Fariha Rosales MD Neurology Resident. PGY-3 [facility]. Associated attestation - Julio Cesar Arriaza MD [...] Wt 95.3 kg (210 lb) SpO2 95% Wt Readings from [...] 10/29/22 0214 10/29/22 0010 10/28/22 0125 10/27/22 20210/27/22 0608 10/27/22 0054 10/23/22 0129 10/22/22 0153 [...] frontal gyrus/frontal operculum, consistent with an evolving ebhzxepr-sz-knswbhe infarct. 4.No significant midline shift. Similar-appearing size [...] infarct. The report is dictated by Kayla Setvenson MD (residential sales) 1 ILonnie MD have personally reviewed and [...] report is dictated by Miranda Bowen MD (residential sales) Oriana Ornelas MD have personally reviewed and [...] verification. > Dictated by Clarisa Cantrell MD (residential sales). [employer] have personally reviewed and interpreted this [...] report is dictated by Miranda Bowen MD (residential sales) Joni Ornelas MD have personally reviewed and [...] right lateral ventricle, and approximately 3-4 mm ynlgd-ko-jowu midline shift, grossly similar to the prior. [...] verification. Report dictated by Tim Major MD (residential sales). I, Jasper Sifuentes MD have personally reviewed [...] be performed given no participation in of MULTI SITE LEASING CONSULTANT evaluation Patient seems to have a functional [...] Jerod Calderon MD Gastroenterology & Hepatology Fellow [facility] Associated attestation - Khanh Metz MD - 10/31/2022 2:27 PM CDT I have personally seen and examined this patient. I agree with the house mover's findings, assessment and plan as outlined. In [...] report is dictated by Miranda Bowen MD (residential sales) Oriana Ornelas MD have personally reviewed and [...] verification. > Dictated by Clarisa Cantrell MD (residential sales). [employer] have personally reviewed and interpreted this [...] report is dictated by Miranda Bowen MD (residential sales) Joni Ornelas MD have personally reviewed and [...] right lateral ventricle, and approximately 3-4 mm iaygs-gj-cofo midline shift, grossly similar to the prior. [...] verification. Report dictated by Tim Major MD (residential sales). I, Jasper Sifuentes MD have personally reviewed [...] occlusion of the R EIA + proximal BUSINESS INFORMATION ANALYST extending into the profunda with reconstitution identified [...] ABIs. Message sent to schedulers, please call [phone] to reschedule. Patient can call [phone] for any incision or wound concerns. Patient [...] (36.7 ??C) Axillary 80 18 99 % 08/ 2300 113/58 -- -- 75 17 97 [...] Information Primary Emergency Contact: Hi Darby Address: [address] [place] [id number] [facility] Relation: Spouse Secondary Emergency Contact: Sandra Disla [facility] Mobile Relation: Mother Transportation at Discharge: Ambulance: READMISSION RISK SCORE is 15 at 7:22 PM 10/30/2022.: Name: Bulmaro Ochoa RN PHYSICIAN OFFICE manager reliability [phone] * Vickie Muller MD - 10/30/2022 6:26 [...] 128/80 -- -- 98 28 96 % 10/29/222099 139/77 -- -- 107 27 96 % 10/29/221999 136/67 98.3 ??F (36.8 ??C) Oral 90 [...] intact bilaterally Labs: Recent Labs Component Name 10/30/221610/29/22 00110/27/22202810/23/22 0129 10/22/22 0153 WBC 17.9* 21.3* 21.1* - - RBC 2.53* 2.54* 2.52* - - HGB 7.6* 7.8* 7.6* - - HCT 24.3* 24.4* 24.2* - - PLT - - - - 199 - = values in this interval not displayed. Recent Labs Component Name 10/30/221610/29/22 0010 10/28/22 0125 NA 141 138 138 CL 107 106 106 CO2 25 24 26 BUN 11 9 9 CREATININE 0.61 0.54* 0.54* CALCIUM 8.8 8.8 8.6 No results for input(s): MG in the last 27364 hours. Recent Labs Component Name 10/30/22 0017 [...] results for input(s): A1C in the last 26520 hours. Recent Labs Component Name 10/20/22 0302 06/15/22 0757 CHOL 173 204* HDL 42 37* LDLCALC 91 117* TRIG 201* 251* Recent Labs Component Name 06/15/22 0757 TSH 1.873 No results for input(s): CKMB, CKTOTAL, CKMB, TROPONINI, BNP in the last [address] ANGIO BRAIN NECK STROKE Result Date: 10/19/2022 PROCEDURE: CT ANGIO BRAIN NECK STROKE, DATE/TIME OF EXAM: 10/19/2022 8:16 AM, LOCATION [facility] INDICATION: Code Stroke ADDITIONAL CLINICAL [...] DATE/TIME OF EXAM: 10/19/2022 8:04 AM, LOCATION [facility] INDICATION: Code Stroke ADDITIONAL CLINICAL [...] Leigh SLP - 10/30/2022 1:30 PM CDT [facility] Department of Physical Medicine & Rehabilitation Progress Note Patient: Consuelo Darby [facility] Record Number: [id number] Date of : 1980 Age: [age] year old 10/30/22 1300 Therapy on Hold Therapy on Hold Surgery;Chart Reviewed;New Order Required for Therapy Jerry Valle M.A., [facility]MULTI SITE LEASING CONSULTANT Speech Language Pathologist [id number] * Ronda Crawley OT - 10/30/2022 1:14 PM CDT [facility] Department of Physical Medicine & Rehabilitation Progress Note Patient: Consuelo Darby Med Record Number: [id number] Date of : 1980 Age: [age] year [...] occlusion of the R EIA + proximal BUSINESS INFORMATION ANALYST 10/26: reached goal aptt overnight. Neuro exam [...] for occlusion of R EIA and proximal BUSINESS INFORMATION ANALYST Objective BP 139/74 Pulse 80 Temp 98.1 [...] occlusion of the R EIA + proximal BUSINESS INFORMATION ANALYST likely iatrogenic Plan Neurological R MCA M1 occlusion s/p MT with TICI 2B recanalization S/P TNK administration. S/P [facility] Malignant MCA syndrome - S/P hemicrani [...] after hemicrani on 10/20. Extubated 10/24, to NH - Bronchial hygiene q4h, vest and if [...] - Diet: Goal TF Vital 55cc/hr, FWF 950cvk3o - GI ppx: Lansoprozole - Last BM: [...] #Occlusion of the R EIA + proximal BUSINESS INFORMATION ANALYST likely iatrogenic - vascular surgery; OR today [...] bedside Fariha Rosales MD Neurology Resident. PGY-3 [facility]. * Edgardo Suarez RN - 10/30/2022 10:53 AM CDT HOB elevated, Neuro checks, NPO for procedure, doppler RLE pedals. * Edgardo Suarez RN - 10/30/2022 9:50 AM CDT Report given to GAS PUMP ATTENDANT. Pt trans to OR with RN and OR personnel. On monitor. Arrived in PACU. * Sosa Degroot MD - 10/30/2022 8:48 AM CDT Images from the original note were not included. Vascular Neurology Fellow Plan of Care Note Consuelo Darby is a 41 year old woman presenting to [facility] with right MCA syndrome and found [...] thrombectomy - maintain normothermic and euglycemic - PT/OT/MULTI SITE LEASING CONSULTANT - outpt follow-up for 3mm left upper [...] 0010 10/28/22 0125 06/15/22 0757 12/09/18 0812 07/25/18 2056 03/01/16 0817 SODIUM - - - - [...] PhD Vascular and Interventional Neurology Fellow * Consuelo Prado - 10/30/2022 7:47 AM CDT Images from [...] for occlusion of R EIA and proximal BUSINESS INFORMATION ANALYST Objective BP 129/61 Pulse 78 Temp 98.4 [...] Component Value Units Date/Time VANCOMYCIN LEVEL TROUGH [[id number]] Order Status: Sent Specimen: Blood PTT [facility] [[id number]] (Abnormal) Collected: 10/30/22236 Order Status: Completed Specimen: Blood Updated: 10/30/22325 APTT 77.7 Seconds Comment: Suggested therapeutic range for full dose I.V. unfractionated heparin therapy for venous thromboembolism is 71 to 109 seconds. PT-INR [facility] [[id number]] (Normal) Collected: 10/30/22236 Order Status: Completed Specimen: Blood Updated: 10/30/22325 PT 13.6 Seconds INR 1.0 Comment: The suggested therapeutic range for standard coumadin (warfarin) therapy is an INR of 2.0-3.0. For high-risk patients (Mechanical Mitral Valve Prosthesis, etc.), the suggested prophylactic therapeutic range is an INR of 2.5-3.5. PTT [facility] [[id number]] Order Status: Sent Specimen: Blood DIFFERENTIAL MANUAL [[id number]] (Abnormal) Collected: 10/30/2216 Order Status: Completed Specimen: [...] Increased Anisocytosis Occasional Macrocytosis Few Polychromasia Few [place] Bodies Rare Ovalocytes Rare [place] Cells Occasional Smudge Cells Rare Comment Platelet Platelet clumpled on the smear but appear increased. HCG BETA BLOOD QUANTITATIVE [[id number]] Collected: 10/30/2216 Order Status: Completed Specimen: Blood Updated: 10/30/22113 Beta-hCG Total Quantitative <3 mIU/mL Comment: HCG Numeric Result Interpretation: Non- Females: < 5 mIU/mL Post-Menopausal Females: < 7 mIU/mL This assay is cleared for use in the early detection of only. It is not approved for any other uses such as tumor marker screening, tumor marker monitoring, etc. and should not be used for any other purposes. PHOSPHORUS BLOOD [[id number]] (Normal) Collected: 10/30/2216 Order Status: Completed Specimen: Blood Updated: 10/30/22102 Phosphorus 5.1 mg/dL MAGNESIUM BLOOD [[id number]] (Normal) Collected: 10/30/2216 Order Status: Completed Specimen: Blood Updated: 10/30/22102 Magnesium 2.1 mg/dL BASIC METABOLIC PANEL (CALCIUM TOTAL) [[id number]] (Abnormal) Collected: 10/30/2216 Order Status: Completed Specimen: Blood Updated: 10/30/22102 BUN 11 mg/dL Creatinine 0.61 mg/dL Sodium 141 mmol/L Potassium 4.0 mmol/L Chloride 107 mmol/L CO2 25 mmol/L Glucose 134 mg/dL Calcium 8.8 mg/dL Anion Gap 13 BUN/Creatinine Ratio 18 Osmolality Calculated 293 mOsm/kg eGFR by CKD-EPI >90 mL/min/1.73 m2 CBC W AUTO DIFFERENTIAL [[id number]] (Abnormal) Collected: 10/30/2216 Order Status: Completed Specimen: Blood Updated: 10/30/2244 WBC 17.9 10??3/uL Comment: The WBC count is corrected by the instrument for nRBC's RBC 2.53 10??6/uL Hemoglobin 7.6 g/dL Hematocrit 24.3 % MCV 96.0 fL MCH 30.0 pg MCHC 31.3 g/dL RDW-SD 47.9 fL RDW-CV 13.8 % Platelet Count 586 10??3/uL MPV 10.4 fL nRBC Absolute 0.18 10??3/uL nRBC Auto 1.0 /100 WBC HCG URINE QUALITATIVE [[id number]] Collected: 10/30/2220 Order Status: Canceled Specimen: Urine Updated: 10/30/2226 MYCOPLASMA PNEUMONIAE AB IGM [[id number]] Collected: 10/27/221157 Order Status: Completed Specimen: Blood Updated: 10/30/2223 [...] more than 12 months post-infection. Performed By: [facility] [address] [place] [address] Film Spooler: Boo Bond MD, PhD CLIA Number: [id number] MYCOPLASMA PNEUMONIAE AB IGG [[id number]] Collected: 10/27/221157 Order Status: Completed Specimen: Blood Updated: 10/30/2223 Mycoplasma Antibody IgG 0.05 U/L Comment: INTERPRETIVE [...] other is below 0.20 U/L. Performed By: [facility] [address] [place] [address] Film Spooler: Boo Bond MD, PhD CLIA Number: [id number] BARTONELLA HENSELAE ANTIBODY IGM [[id number]] Collected: 10/27/221157 Order Status: Completed Specimen: Blood [...] developed and its performance characteristics determined by [facility]. It has not been cleared or approved by the [place] Food and Drug Administration. This test was performed in a CLIA certified laboratory and is intended for clinical purposes. Performed By: [facility] [address] [place], [place] [id number] Film Spooler: Boo Bond MD, PhD CLIA Number: [id number] BARTONELLA HENSELAE ANTIBODY IGG [[id number]] Collected: 10/27/221157 Order Status: Completed Specimen: Blood [...] developed and its performance characteristics determined by [facility]. It has not been cleared or approved by the [place] Food and Drug Administration. This test was performed in a CLIA certified laboratory and is intended for clinical purposes. Performed By: [facility] [address] [place] [address] Film Spooler: Boo Bond MD, PhD CLIA Number: [id number] CHLAMYDIA ANTIBODY IGG/IGM PANEL [[id number]] Collected: 10/27/22 1158 Order Status: Completed Specimen: Blood Updated: 10/29/22 2132 C Pneumoniae Antibody IgG Titer <1:64 Chlamydia [...] developed and its performance characteristics determined by [facility]. It has not been cleared or approved by the [place] Food and Drug Administration. This test was performed in a CLIA certified laboratory and is intended for clinical purposes. Performed By: [facility] [address] [place] [address] Film Spooler: Boo Bond MD, PhD CLIA Number: [id number] PTT [facility] [[id number]] (Abnormal) Collected: 10/29/222001 Order Status: Completed Specimen: Blood Updated: 10/29/22 204 APTT 70.7 Seconds Comment: Suggested therapeutic range for full dose I.V. unfractionated heparin therapy for venous thromboembolism is 71 to 109 seconds. PTT [facility] [[id number]] (Abnormal) Collected: 10/29/22 1541 Order Status: Completed Specimen: Blood Updated: 10/29/22 1628 APTT 64.4 Seconds Comment: Suggested therapeutic range for full dose I.V. unfractionated heparin therapy for venous thromboembolism is 71 to 109 seconds. PTT [facility] [[id number]] (Abnormal) Collected: 10/29/22 1004 Order Status: Completed [...] report is dictated by Kayla Stevenson MD (residential sales) 1 I, Lonnie Rae MD have personally [...] report is dictated by Miranda Bowen MD (residential sales) Oriana Ornelas MD have personally reviewed and [...] verification. > Dictated by Clarisa Cantrell MD (residential sales). [employer] have personally reviewed and interpreted this [...] report is dictated by Miranda Bowen MD (residential sales) Joni Ornelas MD have personally reviewed and [...] right lateral ventricle, and approximately 3-4 mm knfiv-pt-hqkn midline shift, grossly similar to the prior. [...] verification. Report dictated by Tim Major MD (residential sales). Jasper Ornelas MD have personally reviewed and [...] The report is dictated by Miranda Bowen MD(residential sales) Jasper Ornelas MD have personally reviewed and [...] hemorrhage. Report dictated by Lorenzo Horta MD (residential sales). Lonnie Ornelas MD have personally reviewed and [...] prior. > Dictated by Bassam Jovel M.D. (residential sales) Gonzalez Ornelas MD have personally reviewed and [...] febrile Gastrointestinal # Hx of GERD - MULTI SITE LEASING CONSULTANT swallow evaluation: when stable - Diet: NG [...] #Occlusion of the R EIA + proximal BUSINESS INFORMATION ANALYST likely iatrogenic - vascular surgery following - [...] bedside Cordero Kyle Johan Medical Student, MS3 [facility]. Associated attestation - Julio Cesar Arriaza MD [...] Wt 95.3 kg (210 lb) SpO2 95% Patient Active Problem List: GERD (gastroesophageal reflux disease) Hemianopsia Weakness Left-sided sensory deficit present Gaze palsy Acute cerebrovascular accident (CVA) due to embolism of right middle cerebral artery (CMS/HCC) Nihss score 9 Received intravenous tissue plasminogen activator (tPA) in emergency department Migraine Hypertension Right middle cerebral artery stroke (CMS/HCC) Juli oCesar Arriaza MD 10/30/2022 Neurocritical Care The patient [...] commands RECENT LABS: Recent Labs Component Name 10/30/22 0017 10/29/22 [...] report is dictated by Miranda Bowen MD (residential sales) Oriana Ornelas MD have personally reviewed and [...] verification. > Dictated by Clarisa Cantrell MD (residential sales). [employer] have personally reviewed and interpreted this [...] report is dictated by Miranda Bowen MD (residential sales) Joni Ornelas MD have personally reviewed and [...] right lateral ventricle, and approximately 3-4 mm npedu-cn-ozix midline shift, grossly similar to the prior. [...] verification. Report dictated by Tim Major MD (residential sales). I, Jasper Sifuentes MD have personally reviewed [...] occlusion of the R EIA + proximal BUSINESS INFORMATION ANALYST extending into the profunda with reconstitution identified [...] occlusion of the R EIA + proximal BUSINESS INFORMATION ANALYST 10/26: reached goal aptt overnight. Neuro exam [...] occlusion of the R EIA + proximal BUSINESS INFORMATION ANALYST likely iatrogenic Plan Neurological R MCA M1 occlusion s/p MT with TICI 2B recanalization S/P TNK administration. S/P [facility] Malignant MCA syndrome - S/P hemicrani [...] after hemicrani on 10/20. Extubated 10/24, to NH - Bronchial hygiene q4h, vest and if [...] - Diet: Goal TF Vital 55cc/hr, FWF [id number] - GI ppx: Lansoprozole - Last BM: [...] #Occlusion of the R EIA + proximal BUSINESS INFORMATION ANALYST likely iatrogenic - vascular surgery following - [...] bedside Paris Mohr MD Neurology Resident. PGY-3 [facility]. Associated attestation - Shahbaz Bowen MD - [...] 10/25: Incidentally clot found in the R BUSINESS INFORMATION ANALYST, non-occlusive, with good pulses peripherally. 10/26: no [...] TF will pause temporarily if extubating today 8: Doing well from an airway perspective, will [...] to find an infection this likely is signs sales representative of an inflammatory response from CVA [...] Intake 280 ml Output 2275 ml Net -1994 ml Exam: Cortical Function Mental Status Awake, [...] intact bilaterally Labs: Recent Labs Component Name 10/29/22910/27/22202810/27/225310/23/2212810/22/22 0153 WBC 21.3* 21.1* 19.5* - - RBC 2.54* 2.52* 2.60* - - HGB 7.8* 7.6* 8.0* - - HCT 24.4* 24.2* 24.6* - - PLT - - - - 199 - = values in this interval not displayed. Recent Labs Component Name 10/29/22910/28/2212410/27/22 0054 NA 138 138 138 CL 106 106 107 CO2 24 26 24 BUN 9 9 11 CREATININE 0.54* 0.54* 0.53* CALCIUM 8.8 8.6 8.4 No results for input(s): MG in the last 29269 hours. Recent Labs Component Name 10/29/2210/28/23 0125 10/27/22 0054 PHOS 4.8 3.9 3.5 [...] results for input(s): A1C in the last 05650 hours. Recent Labs Component Name 10/20/22 0302 06/15/22 0757 CHOL 173 204* HDL 42 37* LDLCALC 91 117* TRIG 201* 251* Recent Labs Component Name 06/15/22 0757 TSH 1.873 No results for input(s): CKMB, CKTOTAL, CKMB, TROPONINI, BNP in the last [address] ANGIO BRAIN NECK STROKE Result Date: 10/19/2022 PROCEDURE: CT ANGIO BRAIN NECK STROKE, DATE/TIME OF EXAM: 10/19/2022 8:16 AM, LOCATION [facility] INDICATION: Code Stroke ADDITIONAL CLINICAL [...] DATE/TIME OF EXAM: 10/19/2022 8:04 AM, LOCATION [facility] INDICATION: Code Stroke ADDITIONAL CLINICAL [...] swallow. TF - Consider PEG tube - MULTI SITE LEASING CONSULTANT swallow evaluation Renal/Electrolytes ? No acute issues [...] Hamm COTA - 10/29/2022 1:02 PM CDT [facility] Physical Medicine and Rehabilitation Occupational Therapy Splint [...] heparin, 500-2,150 Units/hr, Last Rate: 1,650 Units/hr (10/29/2212) PRN Medications: 0.9% NaCl, 1-10 mL, PRN [...] RECENT LABS: Recent Labs Component Name 10/29/22 00110/27/22202810/27/225310/23/2212810/22/22 0153 WBC 21.3* 21.1* 19.5* - - HGB 7.8* 7.6* 8.0* - - HCT 24.4* 24.2* 24.6* - - MCV 96.1 96.0 94.6 - - PLT - - - - 199 - = values in this interval not displayed. Recent Labs Component Name 10/29/22910/28/2212410/27/2253 NA 138 138 138 POTASSIUM 4.1 3.5 3.5 CL 106 106 107 CO2 24 26 24 BUN 9 9 11 CREATININE 0.54* 0.54* 0.53* CALCIUM 8.8 8.6 8.4 MAGNESIUM 2.0 2.0 2.0 PHOS 4.8 3.9 3.5 Recent Labs Component Name 10/19/22823 06/15/22 0757 12/09/18 0812 PROT 7.7 7.5 [...] report is dictated by Miranda Bowen MD (residential sales) Oriana Ornelas MD have personally reviewed and [...] verification. > Dictated by Clarisa Cantrell MD (residential sales). Alexx Ornelas have personally reviewed and interpreted [...] report is dictated by Miranda Bowen MD (residential sales) Joni Ornelas MD have personally reviewed and [...] right lateral ventricle, and approximately 3-4 mm gcgef-hc-cdff midline shift, grossly similar to the prior. [...] verification. Report dictated by Tim Major MD (residential sales). IJasper MD have personally reviewed and interpreted [...] occlusion of the R EIA + proximal BUSINESS INFORMATION ANALYST extending into the profunda with reconstitution identified [...] Hamm COTA - 10/28/2022 3:25 PM CDT [facility] Physical Medicine and Rehabilitation Occupational Therapy Splint [...] ASSESSMENT/PLAN Indication: endocarditis c/b septic emboli to CONSTRUCTION CODE ADMINISTRATOR Goal trough: 15-20 mcg/mL Assessment: ?? Day [...] TBD Lucretia Barrett PharmD 10/28/2022 3:16 PM [facility] Vancomycin Guideline * Valdez Oshea RN - [...] intact bilaterally Labs: Recent Labs Component Name 10/27/22202810/27/225310/26/22 0002 10/23/22 0129 10/22/22 0153 WBC 21.1* 19.5* 16.1* - - RBC 2.52* 2.60* 2.64* - - HGB 7.6* 8.0* 8.1* - - HCT 24.2* 24.6* 25.1* - - PLT - - - - 199 - = values in this interval not displayed. Recent Labs Component Name 10/28/2212410/27/224 10/26/22 0002 NA 138 138 139 CL 106 107 105 CO2 26 24 24 BUN 9 11 13 CREATININE 0.54* 0.53* 0.54* CALCIUM 8.6 8.4 8.4 No results for input(s): MG in the last 33550 hours. Recent Labs Component Name 10/28/22 0125 [...] results for input(s): A1C in the last 93241 hours. Recent Labs Component Name 10/20/22 0302 06/15/22 0757 CHOL 173 204* HDL 42 37* LDLCALC 91 117* TRIG 201* 251* Recent Labs Component Name 06/15/22 0757 TSH 1.873 No results for input(s): CKMB, CKTOTAL, CKMB, TROPONINI, BNP in the last [address] ANGIO BRAIN NECK STROKE Result Date: 10/19/2022 PROCEDURE: CT ANGIO BRAIN NECK STROKE, DATE/TIME OF EXAM: 10/19/2022 8:16 AM, LOCATION [facility] INDICATION: Code Stroke ADDITIONAL CLINICAL [...] DATE/TIME OF EXAM: 10/19/2022 8:04 AM, LOCATION [facility] INDICATION: Code Stroke ADDITIONAL CLINICAL [...] swallow. TF - Consider PEG tube - MULTI SITE LEASING CONSULTANT swallow evaluation Renal/Electrolytes ? No acute issues [...] occlusion of the R EIA + proximal BUSINESS INFORMATION ANALYST 10/26: reached goal aptt overnight. Neuro exam [...] post MT and post TNK monitoring. S/P [facility] on 10/20 and remained intubated after procedure. 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 Differentials include infective endocarditis, non-infective endocarditis and fibroelastoma Found to have occlusion of the R EIA + proximal BUSINESS INFORMATION ANALYST likely iatrogenic Plan Neurological R MCA M1 occlusion s/p MT with TICI 2B recanalization S/P TNK administration. S/P [facility] Malignant MCA syndrome - S/P hemicrani [...] after hemicrani on 10/20. Extubated 10/24, to NH - Bronchial hygiene q4h, vest and if [...] - Diet: Goal TF Vital 55cc/hr, FWF [id number] - GI ppx: Lansoprozole - Last BM: 10/22 - BM regimen: senna and miralax Endocrine Patient was taking oral contraceptive home medication. - A1c 6.0 - Accuchecks Hematology Recent Labs Component Name 10/27/22202810/27/22 0054 WBC 21.1* 19.5* HGB 7.6* 8.0* HCT 24.2* 24.6* PLTCOUNT 486* 519* PLATELET - Occasional* #Occlusion of the R EIA + proximal BUSINESS INFORMATION ANALYST likely iatrogenic - vascular surgery following - [...] bedside Tim Marinelli MD Neurology Resident. PGY-4 [facility]. Associated attestation - Shahbaz Bowen MD - [...] 10/25: Incidentally clot found in the R BUSINESS INFORMATION ANALYST, non-occlusive, with good pulses peripherally. 10/26: no [...] Nutrition at risk 10/23: TF paused for SRAAH procedure briefly. No reports of intolerance. Last [...] to find an infection this likely is signs sales representative of an inflammatory response from CVA [...] occlusion of the R EIA + proximal BUSINESS INFORMATION ANALYST 10/26: reached goal aptt overnight. Neuro exam [...] occlusion of the R EIA + proximal BUSINESS INFORMATION ANALYST likely iatrogenic Plan Neurological ICP 12-21 LEONCIO drain 45cc R MCA M1 occlusion s/p MT with TICI 2B recanalization S/P TNK administration. S/P [facility] Malignant MCA syndrome - S/P hemicrani [...] after hemicrani on 10/20. Extubated 10/24, to NH - Bronchial hygiene q4h, vest and if [...] - Diet: Goal TF Vital 55cc/hr, FWF [id number] - GI ppx: Lansoprozole - Last BM: 10/22 - BM regimen: senna and miralax Endocrine Patient was taking oral contraceptive home medication. - A1c 6.0 - Accuchecks Hematology Recent Labs Component Name 10/27/22 0054 WBC 19.5* HGB 8.0* HCT 24.6* PLTCOUNT 519* PLATELET Occasional* #Occlusion of the R EIA + proximal BUSINESS INFORMATION ANALYST likely iatrogenic - vascular surgery following - [...] bedside Paris Mohr MD Neurology Resident. PGY-3 [facility]. Associated attestation - Shahbaz Bowen MD - [...] 10/25: Incidentally clot found in the R BUSINESS INFORMATION ANALYST, non-occlusive, with good pulses peripherally. 10/26: no [...] to find an infection this likely is signs sales representative of an inflammatory response from CVA + return of euvolemia. Continuing with ceftriaxone and vanc. Critical Care 30-74 minutes: 40 mins (Time involved in the performance of separately billable procedures, teaching, or reviewing educational material was not counted towards critical care time.) * Sima Gardner, JOSETTE - 10/27/2022 3:[address] [facility] Physical Medicine and Rehabilitation Swallow Treatment Patient: Consuelo Darby [facility] Record Number: [id number] Date of : 1980 Age: [age] year [...] Pharyngeal: (P) Moderate;Severe (Suspected) Treatment/Education/Interventions: While performing MULTI SITE LEASING CONSULTANT, Patient and spouse was instructed in: results of swallow evaluation and recommendations for NPO status given patient's elevated aspiration risk. Patient demonstrated Questionable understanding of instructions given. Nurse contacted regarding results of treatment session. INFORMED CONSENT TO TREATMENT: Plan of care is discussed but patient with questionable understanding. Short Term Goals Patient will participate in an instrumental swallow assessment as appropriate. Jail Goal (s): Patient to discharge to appropriate [...] intact bilaterally Labs: Recent Labs Component Name 10/27/22 0054 10/26/22 [...] results for input(s): MG in the last 76793 hours. Recent Labs Component Name 10/27/22 0054 10/26/22 0002 10/25/22 000 PHOS 3.5 3.5 3.7 Recent Labs Component Name 10/27/22 1158 10/27/22 0608 10/27/22 0054 10/26/22 0647 10/26/22 0426 10/25/22 2102 10/25/22 1641 PT - 13.7 - - 13.6 - 13.4 INR - 1.1 - - 1.0 - 1.0 PTT 44.7* 58.6* 59.5* - - - 24.8 - = values in this interval not displayed. No results for input(s): A1C in the last 32183 hours. Recent Labs Component Name 10/20/22 0302 06/15/22 0757 CHOL 173 204* HDL 42 37* LDLCALC 91 117* TRIG 201* 251* Recent Labs Component Name 06/15/22 075 TSH 1.873 No results for input(s): CKMB, CKTOTAL, CKMB, TROPONINI, BNP in the last [address] ANGIO BRAIN NECK STROKE Result Date: 10/19/2022 PROCEDURE: CT ANGIO BRAIN NECK STROKE, DATE/TIME OF EXAM: 10/19/2022 8:16 AM, LOCATION [facility] INDICATION: Code Stroke ADDITIONAL CLINICAL [...] DATE/TIME OF EXAM: 10/19/2022 8:04 AM, LOCATION [facility] INDICATION: Code Stroke ADDITIONAL CLINICAL [...] - NPO until passes swallow. TF - MULTI SITE LEASING CONSULTANT swallow evaluation Renal/Electrolytes ? No acute issues [...] Contact Information Primary Emergency Contact: MehnazHi Address: [address] [place] [id number] [facility] Relation: Spouse Secondary Emergency Contact: Sandra Disla [facility] Mobile Relation: Mother Transportation at Discharge: Ambulance: READMISSION RISK SCORE is 15 at 2:22 PM 10/27/2022.: Name: Bulmaro Ochoa RN BSN manager reliability [phone] * Agnes Erazo PT - 10/27/2022 11:[address] [facility] Physical Medicine and Rehabilitation Physical Therapy Re-evaluation Note Patient: Consuelo Darby Med Record Number: [id number] Date of : 1980 Age: [age] year [...] bed mobility training and balance activities Modified Maryann: Current Modified Wetmore Score: 5 AM-PAC 6 Clicks Mobility Raw [...] sit EOB x10 minutes with minimal assist Conveyor Operator Goal(s): Patient to discharge to appropriate next [...] reach, with family in room. * Ronda Crawley, OT - 10/27/2022 8:[address] 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 Prior Level of Functioning: Mobility: Ambulate-In Community;Independent;Without Assistive [...] TOLERANCE: Patient's activity tolerance: poor plus. Modified Wetmore: Current Modified Maryann Score: 5 AM-PAC 6 [...] with good endurance and with minimal pain Jail Goal(s): Patient to discharge to appropriate next [...] Parks MD - 10/27/2022 8:46 AM CDT [facility] Infectious Diseases Progress Note Date of Admission: 10/19/2022 7:53 AM Length of Stay: Day 8 Room: [facility]/ Attending: Emir Vail MD Subjective Since last seen by us, she has remained afebrile, hemodynamically stable, on room air. Slowly improving mental status. WBC trending up. Vascular surgery following for possible thrombectomy. Review of Systems Unable to perform ROS: Mental status change Antimicrobial History Current Antibiotics Vancomycin 10/25 - present Ceftriaxone 10/25 - present ?? Prior Antibiotics At U Cefazolin 10/20 Vancomycin 10/20 Inpatient Medications ??? [...] 107 105 106 - 108* 107 CO2 24 24 25 - 21* 23 BUN 11 13 16 - 13 12 CREATININE 0.53* 0.54* 0.48* - 0.84 0.74 ALB - - - - 3.5 3.6 PROT - - - - 7.7 7.5 - = values in this interval not displayed. estimated creatinine clearance is 159.5 mL/min (A) (by C-G formula based on SCr of 0.53 mg/dL (L)). LFTs: Recent Labs Component Name 10/19/22 0824 06/15/22 0757 12/09/18 0812 07/25/18205503/01/16 0817 02/18/16 1209 07/07/13 2319 ALKPHOS 52 [...] 10/26/22 0426 10/25/22 2102 10/25/22 1641 PT 13.7 - - - 13.6 [...] will need to follow up in the [facility] ID clinic; we will schedule appointment While on outpatient IV antibiotics, they will need weekly CBC with diff, CMP to monitor for adverseevents These labs will need to be faxed to [phone] (attention: Liam Parks MD) Infectious Disease will [...] Liam Parks MD (PGY-5) Infectious Diseases Fellow [employer] [facility] [employer] Pager: [phone] ID Clinic Associated attestation - Arturo Delacruz [...] of care. . Arturo Delacruz MD PhD Supervisor [employer] [facility] Infectious Disease * Consuelo Prado Kyle - 10/27/2022 8:32 AM CDT Images from [...] Value Units Date/Time BARTONELLA HENSELAE ANTIBODY IGM [[id number]] Order Status: Sent Specimen: Blood BARTONELLA HENSELAE ANTIBODY IGG [[id number]] Order Status: Sent Specimen: Blood Q FEVER IGG/IGM AB PANEL RFLX TITER [[id number]] Order Status: Sent Specimen: Blood CHLAMYDIA ANTIBODY IGG/IGM PANEL [[id number]] Order Status: Sent Specimen: Blood MYCOPLASMA PNEUMONIAE AB IGG [[id number]] Order Status: Sent Specimen: Blood MYCOPLASMA PNEUMONIAE AB IGM [[id number]] Order Status: Sent Specimen: Blood PTT [facility] [[id number]] Order Status: Sent Specimen: Blood GLUCOSE - POINT OF CARE [[id number]] (Abnormal) Collected: 10/27/22632 Order Status: Completed Specimen: Blood Updated: 10/27/22638 Glucose WB/POC 128 mg/dL Specimen Type Cap Fingerstick PTT [facility] [[id number]] (Abnormal) Collected: 10/27/22607 Order Status: Completed Specimen: Blood Updated: 10/27/22636 APTT 58.6 Seconds Comment: Suggested therapeutic range for full dose I.V. unfractionated heparin therapy for venous thromboembolism is 71 to 109 seconds. PT-INR [facility] [[id number]] (Normal) Collected: 10/27/22607 Order Status: Completed Specimen: Blood Updated: 10/27/22635 PT 13.7 Seconds INR 1.1 Comment: The suggested therapeutic range for standard coumadin (warfarin) therapy is an INR of 2.0-3.0. For high-risk patients (Mechanical Mitral Valve Prosthesis, etc.), the suggested prophylactic therapeutic range is an INR of 2.5-3.5. DIFFERENTIAL MANUAL [[id number]] (Abnormal) Collected: 10/27/2253 Order Status: Completed Specimen: Blood Updated: 10/27/22 [...] Platelet Estimate Increased Polychromasia Occasional Ovalocytes Occasional Eduardo Cells Occasional Tear Drop Cells Occasional Smudge Cells Rare Large Platelet Count Occasional PHOSPHORUS BLOOD [[id number]] (Normal) Collected: 10/27/2253 Order Status: Completed Specimen: Blood Updated: 10/27/22127 Phosphorus 3.5 mg/dL MAGNESIUM BLOOD [[id number]] (Normal) Collected: 10/27/2253 Order Status: Completed Specimen: Blood Updated: 10/27/22127 Magnesium 2.0 mg/dL BASIC METABOLIC PANEL (CALCIUM TOTAL) [[id number]] (Abnormal) Collected: 10/27/2253 Order Status: Completed Specimen: Blood Updated: 10/27/22127 BUN 11 mg/dL Creatinine 0.53 mg/dL Sodium 138 mmol/L Potassium 3.5 mmol/L Chloride 107 mmol/L CO2 24 mmol/L Glucose 137 mg/dL Calcium 8.4 mg/dL Anion Gap 11 BUN/Creatinine Ratio 21 Osmolality Calculated 288 mOsm/kg eGFR by CKD-EPI >90 mL/min/1.73 m2 PTT [facility] [[id number]] (Abnormal) Collected: 10/27/2253 Order Status: Completed Specimen: Blood Updated: 10/27/22124 APTT 59.5 Seconds Comment: Suggested therapeutic range for full dose I.V. unfractionated heparin therapy for venous thromboembolism is 71 to 109 seconds. CBC W AUTO DIFFERENTIAL [[id number]] (Abnormal) Collected: 10/27/22 0054 Order Status: Completed Specimen: Blood Updated: 10/27/22 0123 WBC 19.5 10??3/uL RBC 2.60 10??6/uL Hemoglobin 8.0 g/dL Hematocrit 24.6 % MCV 94.6 fL MCH 30.8 pg MCHC 32.5 g/dL RDW-SD 45.8 fL RDW-CV 13.5 % Platelet Count 519 10??3/uL MPV 10.1 fL nRBC Absolute 0.08 10??3/uL nRBC Auto 0.4 /100 WBC PTT [facility] [[id number]] (Abnormal) Collected: 10/26/222 Order Status: Completed Specimen: Blood Updated: 10/26/222145 APTT 65.0 Seconds Comment: Suggested therapeutic range for full dose I.V. unfractionated heparin therapy for venous thromboembolism is 71 to 109 seconds. GLUCOSE - POINT OF CARE [[id number]] (Abnormal) Collected: 10/26/22 1833 Order Status: Completed Specimen: Blood Updated: 10/26/22 1834 Glucose WB/POC 122 mg/dL Specimen Type Cap Fingerstick FACTOR V LEIDEN MUTATION PANEL [[id number]] Collected: 10/21/22 0459 Order Status: Completed Specimen: Blood Updated: 10/26/22 1746 Factor V Leiden Source Whole Blood Factor V Leiden PCR/FRET Negative Comment: Indication for testing: Assess genetic risk for thrombosis. NEGATIVE: The factor V Leiden variant, c.1601G>A; p.[id number], was not detected. This does not exclude [...] function in the F5 gene variant c.1601G>A (p.Cim927Oni). Legacy nomenclature: R506Q (1691G>A) CLINICAL SENSITIVITY: 20-50 percent of individuals with an isolated VTE have the FVL variant. METHODOLOGY: Polymerase chain reaction and fluorescence monitoring. ANALYTICAL SENSITIVITY AND SPECIFICITY: 99 percent. LIMITATIONS: Diagnostic errors can occur due to rare sequence variations. F5 gene mutations, other than p.Kla232Kxf, will not be detected. This test was developed and its performance characteristics determined by [facility]. It has not been cleared or approved by the [place] Food and Drug Administration. This test was performed in a CLIA certified laboratory and is intended for clinical purposes. Counseling and informed consent are recommended for genetic testing. Consent forms are available online. Performed By: [facility] [address] [place] [address] Film Spooler: Boo Bond MD, PhD CLIA Number: [id number] PTT [facility] [[id number]] (Abnormal) Collected: 10/26/22 1559 Order Status: Completed Specimen: Blood Updated: 10/26/22 1635 APTT 52.9 Seconds Comment: Suggested therapeutic range for full dose I.V. unfractionated heparin therapy for venous thromboembolism is 71 to 109 seconds. GLUCOSE - POINT OF CARE [[id number]] (Abnormal) Collected: 10/26/22 1215 Order Status: Completed Specimen: Blood Updated: 10/26/22 1216 Glucose WB/POC 122 mg/dL Specimen Type Cap Fingerstick PTT [facility] [[id number]] Order Status: Canceled Specimen: Blood PTT [facility] [[id number]] (Abnormal) Collected: 10/26/22 1124 Order Status: Completed Specimen: Blood Updated: 10/26/22 1155 APTT 51.1 Seconds Comment: Suggested therapeutic range for full dose I.V. unfractionated heparin therapy for venous thromboembolism is 71 to 109 seconds. CARDIOLIPIN ANTIBODY IGA [[id number]] Collected: 10/23/222028 Order Status: Completed Specimen: Blood Updated: 10/26/22 1011 Cardiolipin Antibody IgA <10 APL Comment: INTERPRETIVE INFORMATION: Cardiolipin Antibodies, IgA <=11 APL: Negative 12-19 APL: Indeterminate 20-80 APL: Low to Moderately Positive 81 APL or above: High Positive Performed By: [facility] [address] [place] [address] Film Spooler: Boo Bond MD, PhD CLIA Number: [id number] VANCOMYCIN LEVEL TROUGH [[id number]] (Normal) Collected: 10/26/22 0838 Order Status: Completed [...] report is dictated by Miranda Bowen MD (residential sales) I, Oriana Suarez MD have personally reviewed and interpreted this examination/study. > Interpreting Provider: Oriana Suarez MD on :[address] CHEST ABDOMEN PELVIS W CONT [...] verification. > Dictated by Clarisa Cantrell MD (residential sales). IAlexx have personally reviewed and interpreted this [...] report is dictated by Miranda Bowen MD (residential sales) Join Ornelas MD have personally reviewed and interpreted [...] right lateral ventricle, and approximately 3-4 mm nwtdt-uo-scuw midline shift, grossly similar to the prior. [...] verification. Report dictated by Tim Major MD (residential sales). Jasper Ornelas MD have personally reviewed and [...] The report is dictated by Miranda Bowen MD(residential sales) Jasper Ornelas MD have personally reviewed and [...] hemorrhage. Report dictated by Lorenzo Horta MD (residential sales). Lonnie Ornelas MD have personally reviewed and [...] prior. > Dictated by Bassam Jovel M.D. (residential sales) Gonzalez Ornelas MD have personally reviewed and [...] febrile Gastrointestinal # Hx of GERD? - MULTI SITE LEASING CONSULTANT swallow evaluation:??when stable - Diet:??NG tube - [...] De-escalation: continue ICU?? Family:??updated at bedside? Consuelo Brown Medical Student, MS3 [facility]. * Emir Vail MD - 10/27/2022 7:54 [...] report is dictated by Miranda Bowen MD (residential sales) Oriana Ornelas MD have personally reviewed and [...] verification. > Dictated by Clarisa Cantrell MD (residential sales). Alexx Ornelas have personally reviewed and interpreted [...] report is dictated by Miranda Bowen MD (residential sales) Joni Ornelas MD have personally reviewed and [...] right lateral ventricle, and approximately 3-4 mm hsgpe-ws-mxai midline shift, grossly similar to the prior. [...] verification. Report dictated by Tim Major MD (residential sales). IJasper MD have personally reviewed and interpreted [...] occlusion of the R EIA + proximal BUSINESS INFORMATION ANALYST extending into the profunda with reconstitution identified [...] status: Occupational History ??? 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 Smoking status: [...] CTAB. CARDIOVASCULAR: Regular rhythm, crisp S1/S2. No NICKY. ABDOMEN: S/ND/NT. SKIN/NAILS: hemicraniectomy scar present. PSYCH: Alert, appropriately interactive. NEURO: Following commands. Good hand intellectual property counsel bilaterally. MSK: No synovitis, dactylitis, or enthesitis. [...] Range INR 0.9 0.9 - 1.2 Device [id number] Rigging Engineer ID [id number] EKG 12-LEAD Result Value Ref Range Ventricular Rate 129 BPM Atrial Rate 129 BPM P-R Interval 134 ms QRS Duration ms 90 ms Q-T Interval ms 318 ms QTC Calculation (Bezet) 465 ms Calculated P [place] 55 degrees Calculated R [place] 13 degrees Calculated T [place] 5 degrees Interpretation EKG SINUS TACHYCARDIA OTHERWISE NORMAL ECG NO PREVIOUS ECGS AVAILABLE Confirmed by SWATHI OTT MDSHORE ([id number]) on 10/19/2022 5:38:23 PM CBC W AUTO [...] by CKD-EPI >90 >=90 mL/min/1.73 m2 PT-INR [facility] Result Value Ref Range PT 12.3 12.1 [...] BUBBLE STUDY Result Value Ref Range BSA 2.9859558 m2 LV biplane EF 64 54 - [...] Age Predicted HR 181 Target HR 154 [id number] 6.054 cm SXJBS9BE 5.318 cm LEFT VENTRICLE STROKE VOLUME BIPLANE [...] right lateral ventricle, and approximately 3-4 mm nbghv-ls-gyqo midline shift, grossly similar to the prior. [...] Jasso. ?? Josue Castellanos MD Rheumatology Fellow [facility] Associated attestation - Gonzalez Jasso MD - [...] Rheumatology Fellowship Program Department of Internal Medicine [facility] * Liv Lugo MD - 10/26/2022 1:18 [...] Erazo, PT - 10/26/2022 1:15 PM CDT [facility] Department of Physical Medicine & Rehabilitation Progress Note Patient: Consuelo Darby Med Record Number: [id number] Date of : 1980 Age: [age] year old 10/26/22 1300 Missed Visit Missed Visit Other (Comment) (awaiting helmet) * Yoon Cuadra, PharmD - 10/26/2022 12:54 PM CDT Vancomycin Per Pharmacy - Follow-Up Note Subjective Consuelo Darby is a 41 year old female receiving vancomycin dosed per pharmacy. Indication for anti-infective therapy: suspected infection Site of anti-infective therapy: CONSTRUCTION CODE ADMINISTRATOR. Goal trough 15-20 mcg/mL. Objective Day of [...] 14.0 - - - Vancomycin Administrations from [facility] (last 72 hours) [...] the [facility] pharmacy department ([phone]) with any questions. Yoon Cuadra PharmD 10/26/2022 12:47 PM Resources: Vancomycin Protocol * Jerry Leigh SLP - 10/26/2022 11:[address] [facility] Physical Medicine and Rehabilitation Bedside Swallow Assessment Patient: Consuelo Darby Med Record Number: [id number] Date of : 1980 Age: [age] year [...] Impression - Pharyngeal: Moderate Education/Interventions: While performing MULTI SITE LEASING CONSULTANT, Patient and spouse was instructed in: goals [...] precautions., Patient will follow recommended swallowing strategies. Conveyor Operator Goal (s): Patient to be independent/baseline with functional mobility and self care and be able to safely discharge to prior level of care. Jerry Valle M.A., [facility])-MULTI SITE LEASING CONSULTANT Speech Language Pathologist [phone] * Pardeep Parks [...] Crawley OT - 10/26/2022 11:34 AM CDT [facility] Department of Physical Medicine & Rehabilitation Progress Note Patient: Consuelo Darby Med Record Number: [id number] Date of : 1980 Age: [age] year [...] Information Primary Emergency Contact: Hi Darby Address: [address] [place] [id number] [facility] Relation: Spouse Secondary Emergency Contact: Sandra Disla [facility] Mobile Relation: Mother Transportation at Discharge: Ambulance: READMISSION RISK SCORE is 14 at 9:22 AM 10/26/2022.: Name: Bulmaro Ochoa RN BSN manager reliability [phone] * Vickie Muller MD - 10/26/2022 9:18 [...] (36.6 ??C) Axillary 100 27 100 % 10/25/222101 -- -- -- 108 26 100 % [...] Name 10/26/22 0002 10/25/22 0007 10/23/22202810/23/22 0129 10/22/223 WBC 16.1* 16.6* 17.4* - - RBC [...] results for input(s): MG in the last 88688 hours. Recent Labs Component Name 10/26/22 0002 10/25/22 0007 10/23/222028 PHOS 3.5 3.7 3.1 Recent Labs Component Name 10/26/22 0647 10/26/22 0426 10/26/22 0155 10/25/22 2102 10/25/22 1641 10/23/222028 PT - 13.6 - - 13.4 13.4 INR - 1.0 - - 1.0 1.0 PTT 44.3* - 20.5* 33.3 24.8 21.4* No results for input(s): A1C in the last 38759 hours. Recent Labs Component Name 10/20/22 0302 06/15/22 0757 CHOL 173 204* HDL 42 37* LDLCALC 91 117* TRIG 201* 251* Recent Labs Component Name 06/15/22 0757 TSH 1.873 No results for input(s): CKMB, CKTOTAL, CKMB, TROPONINI, BNP in the last [address] ANGIO BRAIN NECK STROKE Result Date: 10/19/2022 PROCEDURE: CT ANGIO BRAIN NECK STROKE, DATE/TIME OF EXAM: 10/19/2022 8:16 AM, LOCATION [facility] INDICATION: Code Stroke ADDITIONAL CLINICAL [...] DATE/TIME OF EXAM: 10/19/2022 8:04 AM, LOCATION [facility] INDICATION: Code Stroke ADDITIONAL CLINICAL [...] issues ??-NPO until passes swallow. TF - MULTI SITE LEASING CONSULTANT swallow evaluation Renal/Electrolytes ? No acute issues [...] Other (Comment) (has not been assessed by MULTI SITE LEASING CONSULTANT) Pain affectingintake: No Estimated Needs: KCAL: 5411-0544 (25-30kcal/kg of IBW) Protein (g): 66-77 (1.2-1.4gm/kg of IBW) Fluid (ml): 1 ml/kcal Needs based on: Kcal/kg- (Comment) (55kcal/kg of IBW) Recommended Access Route: TF Laboratory values: Recent Labs Component Name 10/26/22 0002 10/25/22 0007 10/23/22202810/20/22 0302 10/19/22 0824 10/19/22 0808 06/15/22 0757 12/09/18 0812 07/25/18205503/01/16 0817 0000 BUN 13 16 14 - 13 - 12 10 7 9 - CREATININE 0.54* 0.48* [...] Delacruz MD - 10/26/2022 8:16 AM CDT [facility] Infectious Diseases Progress Note Date of Admission: 10/19/2022 7:53 AM Length of Stay: Day 7 Room: 309/01 Attending: Emir Vail MD Subjective No acute events overnight. Afebrile. Pt cannot verbalize but makes thumbs up sign. Antimicrobial History Current Antibiotics Vancomycin 10/25 - present Ceftriaxone 10/25 - present ?? Prior Antibiotics At U Cefazolin 10/20 Vancomycin 10/20 Inpatient Medications ??? [...] 110* - 108* 107 CO2 24 25 23 - * 23 BUN 13 16 14 - 13 12 [...] 0426 10/26/22 0155 10/25/22 2102 10/25/22 1641 10/23/229 PT - 13.6 - - 13.4 13.4 [...] fever serology -Chlamydia serologies, IgG and IgM, [facility]#[id number] -Mycoplasma serologies, IgG and IgM, [facility]#[id number] Follow blood cultures Follow rheumatologic and hypercoagulable work up Check CBC with auto diff and CMP weekly while on IV antibiotics Thank you for allowing us to participate in the care of this patient. We will continue to follow and monitor with you closely. Arturo Delacruz MD PhD Supervisor [employer] [facility] Infectious Disease Pager: [phone] 40 minutes spent in the care of this patient, including review of inpatient documentation, review of actual radiology images and interpretations, patient history/exam, and counseling. * Sosa Degroot MD - 10/26/2022 7:59 AM CDT Images from the original note were not included. Vascular Neurology Fellow Plan of Care Note Consuelo Darby is a 41 year old woman presenting to [facility] ED for acute left sensorimotor deficits, left [...] following - maintain normothermic and euglycemic - PT/OT/MULTI SITE LEASING CONSULTANT when stable - outpt follow-up for 3mm [...] Component Value Units Date/Time CARDIOLIPIN ANTIBODY IGA [[id number]] Collected: 10/23/222028 Order Status: Completed Specimen: Blood Updated: 10/26/22 1011 Cardiolipin Antibody IgA <10 APL Comment: INTERPRETIVE INFORMATION: Cardiolipin Antibodies, IgA <=11 APL: Negative 12-19 APL: Indeterminate 20-80 APL: Low to Moderately Positive 81 APL or above: High Positive Performed By: [facility] [address] [place] [address] Film Spooler: Boo Bond MD, PhD CLIA Number: [id number] VANCOMYCIN LEVEL TROUGH [[id number]] (Normal) Collected: 10/26/22837 Order Status: Completed Specimen: Blood Updated: 10/26/22958 Vancomycin Trough 14.0 ug/mL Narrative: See institution protocol. LAB MISC TEST [[id number]] Collected: 10/26/22736 Order Status: Sent Specimen: Blood Updated: 10/26/2239 PTT [facility] [[id number]] Order Status: Sent Specimen: Blood PTT [facility] [[id number]] (Abnormal) Collected: 10/26/22 0647 Order Status: Completed Specimen: Blood Updated: 10/26/22716 APTT 44.3 Seconds Comment: Suggested therapeutic range for full dose I.V. unfractionated heparin therapy for venous thromboembolism is 71 to 109 seconds. GLUCOSE - POINT OF CARE [[id number]] (Abnormal) Collected: 10/26/2212 Order Status: Completed Specimen: Blood Updated: 10/26/22712 Glucose WB/POC 144 mg/dL Specimen Type Cap Fingerstick LAB MISC TEST [[id number]] Order Status: Canceled Specimen: Blood PT-INR [facility] [[id number]] (Normal) Collected: 10/26/22 0426 Order Status: Completed Specimen: Blood Updated: 10/26/22458 PT 13.6 Seconds INR 1.0 Comment: The suggested therapeutic range for standard coumadin (warfarin) therapy is an INR of 2.0-3.0. For high-risk patients (Mechanical Mitral Valve Prosthesis, etc.), the suggested prophylactic therapeutic range is an INR of 2.5-3.5. BETA-2 GLYCOPROTEIN 1 ANTIBODY IGA [[id number]] Collected: 10/23/222028 Order Status: Completed Specimen: Blood Updated: 10/26/22 0243 Beta-2 Glycoprotein Antibody IgA <10 TRUDI Comment: Performed By: [facility] [address] [place] [address] Film Spooler: Boo Bond MD, PhD CLIA Number: [id number] BETA-2 GLYCOPROTEIN 1 ANTIBODY IGG/IGM PANEL [[id number]] Collected: 10/23/222028 Order Status: Completed Specimen: Blood Updated: 10/26/22 0243 Beta-2 Glycoprotein Antibody IgG <10 SGU Beta-2 Glycoprotein Antibody IgM <10 SMU Comment: INTERPRETIVE INFORMATION: [id number] I, IgG and IgM Antibody The persistent [...] other criteria phospholipid antibody tests. Performed By: [facility] [address] [place] [address] Film Spooler: Boo Bond MD, PhD CLIA Number: [id number] CARDIOLIPIN ANTIBODY IGM [[id number]] Collected: 10/23/222028 Order Status: Completed Specimen: Blood Updated: 10/26/22 0232 Cardiolipin Antibody IgM <10 MPL Comment: INTERPRETIVE [...] other criteria phospholipid antibody tests. Performed By: [facility] [address] [place], [place] [id number] Film Spooler: Boo Bond MD, PhD CLIA Number: [id number] CARDIOLIPIN ANTIBODY IGG [[id number]] Collected: 10/23/222028 Order Status: Completed Specimen: Blood Updated: 10/26/22231 Cardiolipin Antibody IgG <10 GPL Comment: INTERPRETIVE [...] other criteria phospholipid antibody tests. Performed By: [facility] [address] [place], [place] [id number] Film Spooler: Boo Bond MD, PhD CLIA Number: [id number] PTT [facility] [[id number]] (Abnormal) Collected: 10/26/22154 Order Status: Completed Specimen: Blood Updated: 10/26/22225 APTT 20.5 Seconds Comment: Suggested therapeutic range for full dose I.V. unfractionated heparin therapy for venous thromboembolism is 71 to 109 seconds. PHOSPHORUS BLOOD [[id number]] (Normal) Collected: 10/26/221 Order Status: Completed Specimen: Blood Updated: 10/26/2229 Phosphorus 3.5 mg/dL MAGNESIUM BLOOD [[id number]] (Normal) Collected: 10/26/221 Order Status: Completed Specimen: Blood Updated: 10/26/2229 Magnesium 1.9 mg/dL BASIC METABOLIC PANEL (CALCIUM TOTAL) [[id number]] (Abnormal) Collected: 10/26/221 Order Status: Completed Specimen: Blood Updated: 10/26/2229 BUN 13 mg/dL Creatinine 0.54 mg/dL Sodium 139 mmol/L Potassium 3.3 mmol/L Chloride 105 mmol/L CO2 24 mmol/L Glucose 113 mg/dL Calcium 8.4 mg/dL Anion Gap 13 BUN/Creatinine Ratio 24 Osmolality Calculated 289 mOsm/kg eGFR by CKD-EPI >90 mL/min/1.73 m2 CBC W AUTO DIFFERENTIAL [[id number]] (Abnormal) Collected: 10/26/221 Order Status: Completed Specimen: Blood Updated: 10/26/22 001 WBC 16.1 10??3/uL RBC 2.64 10??6/uL Hemoglobin [...] Absolute 0.30 GLUCOSE - POINT OF CARE [[id number]] Collected: 10/25/222313 Order Status: Completed Specimen: Blood Updated: 10/25/222314 Glucose WB/POC 114 mg/dL Specimen Type Cap Fingerstick PTT [facility] [[id number]] Order Status: Canceled Specimen: Blood PTT [facility] [[id number]] (Normal) Collected: 10/25/222101 Order Status: Completed Specimen: Blood Updated: 10/25/222131 APTT 33.3 Seconds Comment: Suggested therapeutic range for full dose I.V. unfractionated heparin therapy for venous thromboembolism is 71 to 109 seconds. GLUCOSE - POINT OF CARE [[id number]] (Abnormal) Collected: 10/25/221853 Order Status: Completed Specimen: Blood Updated: 10/25/221855 Glucose WB/POC 122 mg/dL Specimen Type Cap Fingerstick PT-INR [facility] [[id number]] (Normal) Collected: 10/25/221640 Order Status: Completed Specimen: Blood Updated: 10/25/221718 PT 13.4 Seconds INR 1.0 Comment: The suggested therapeutic range for standard coumadin (warfarin) therapy is an INR of 2.0-3.0. For high-risk patients (Mechanical Mitral Valve Prosthesis, etc.), the suggested prophylactic therapeutic range is an INR of 2.5-3.5. PTT [facility] [[id number]] (Normal) Collected: 10/25/221640 Order Status: Completed Specimen: [...] verification. > Dictated by Clarisa Cantrell MD (residential sales). [employer] have personally reviewed and interpreted this [...] report is dictated by Miranda Bowen MD (residential sales) Joni Ornelas MD have personally reviewed and [...] right lateral ventricle, and approximately 3-4 mm [id number]-bl-[id number] midline shift, grossly similar to the prior. [...] verification. Report dictated by Tim Major MD (residential sales). Jasper Ornelas MD have personally reviewed and [...] The report is dictated by Miranda Bowen MD(residential sales) Jasper Ornelas MD have personally reviewed and [...] hemorrhage. Report dictated by Lorenzo Horta MD (residential sales). Lonnie Ornelas MD have personally reviewed and [...] prior. > Dictated by Bassam Jovel M.D. (residential sales) I, Gonzalez Velasco MD have personally reviewed [...] febrile Gastrointestinal # Hx of GERD? - MULTI SITE LEASING CONSULTANT swallow evaluation:??when stable - Diet:??NG tube - [...] De-escalation: continue ICU Family: updated at bedside Consuelo Brown Medical Student, MS3 [facility]. * Paris Mohr MD - 10/26/2022 6:55 [...] TICI 2B recanalization S/P TNK administration. S/P [facility] Malignant MCA syndrome - S/P hemicrani [...] after hemicrani on 10/20. Extubated 10/24, to NH - Bronchial hygiene q4h, vest and if able to cough will switch to aerobika - Aspiration precautions - Elevate head of bed 30-45 degrees - Frequent suctioning, NT suctioning as needed - Maintain oxygen saturation > 92% Renal/Electrolytes Intake/Output Summary (Last 24 hours) at 10/26/2022 0607 Last data filed at 10/26/2022 0600 Gross [...] - Diet: Goal TF Vital 55cc/hr, FWF [id number] - GI ppx: Lansoprozole - Last BM: [...] bedside Paris Mohr MD Neurology Resident. PGY-3 [facility]. Associated attestation - Shahbaz Bowen MD - [...] 10/25: Incidentally clot found in the R BUSINESS INFORMATION ANALYST, non-occulsive, with good pulses peripherally. 10/26: no [...] Information Primary Emergency Contact: Hi Darby Address: [address] [place] [address] [place] [address] [facility] Relation: Spouse Secondary Emergency Contact: Sandra Disla [facility] Mobile Relation: Mother Transportation at Discharge: Ambulance: READMISSION RISK SCORE is 15 at 6:02 PM 10/25/2022.: Name: Bulmaro Ochoa RN BSN manager reliability [phone] * Barbara Arteaga - 10/25/2022 12:38 PM CDT offered support to Salo at bedside and asked him and Consuelo, who was awake, aboutreceiving the sacrament of the sick from a clinical research tech. Salo said yes and Consuelo seemed to give assent as well. Land Leasing Information Clerk asked if she would like prayer and Consuelo gave a thumbs up; corporate strategist provided prayer in thanksgiving that she's extubated and giving thumbs up. Consuelo put her arm around Salo who w as leaning over her; corporate strategist affirmed the couple's obvious love for each other. requestedSOS from our clinical research tech. chaplain Cici Ascom [phone] at home independent call center agent [phone] * Paris Mohr MD - 10/25/2022 12:22 [...] - Diet: Goal TF Vital 55cc/hr, FWF [id number] - GI ppx: Lansoprozole - Last BM: [...] bedside Paris Mohr MD Neurology Resident. PGY-3 [facility]. Associated attestation - Shahbaz Bowen MD - [...] 10/25: Incidentally clot found in the R BUSINESS INFORMATION ANALYST, non-occulsive, with good pulses peripherally. RENAL/ Urinary [...] Rose OT - 10/25/2022 9:50 AM CDT [facility] Department of Physical Medicine & Rehabilitation Progress Note Patient: Consuelo Darby Med Record Number: [id number] Date of : 1980 Age: [age] year old 10/25/22 0949 Missed Visit Missed Visit MD Cancel Per multidisciplinary rounds with primary team, cx therapy this date. Team also notified on rounds of need for helmet prior to initiating out of bed mobility. OT will continue to follow. * Iva Wilde, PT - 10/25/2022 9:30 AM CDT [facility] Department of Physical Medicine & Rehabilitation Patient: Consuelo Darby Med Record Number: [id number] Date of : 1980 Age: [age] year old 10/25/22 0930 Missed Visit Missed Visit Cancel- Cancel for the day per stroke rounds * Liam Parks MD - 10/25/2022 8:00 AM CDT [facility] Infectious Diseases Progress Note Date of Admission: 10/19/2022 7:53 AM Length of Stay: Day 6 Room: [facility]/ Attending: Emir Vail MD Subjective Since last [...] 10/25 - present ?? Prior Antibiotics At [facility] Cefazolin 10/20 Vancomycin 10/20 Inpatient Medications [...] Review CBC: Recent Labs Component Name 10/25/22 0007 10/23/22202810/23/22 0129 10/22/22 0153 WBC 16.6* 17.4* 16.7* - RBC 2.65* 2.58* 2.52* - HGB 8.2* 8.0* 7.8* - HCT 25.1* 24.4* 23.8* - MCV 94.7 94.6 94.4 - PLT - - - 199 BMP: Recent Labs Component Name 10/25/22 0007 10/23/22202810/23/229 10/20/2230110/19/2282306/15/22 0757 NA 140 140 140 - 139 138 CL 106 110* 108* - 108* 107 CO2 23 25 - 21* 23 BUN 16 14 13 - 13 12 CREATININE 0.48* 0.56 0.51* - 0.84 0.74 ALB - - - - 3.5 3.6 PROT - - - - 7.7 7.5 - = values in this interval not displayed. estimated creatinine clearance is 176.1 mL/min (A) (by C-G formula based on SCr of 0.48 mg/dL (L)). LFTs: Recent Labs Component Name 10/19/2224 06/15/227 12/09/18 0812 07/25/18 2056 03/01/16 0817 02/18/16 [...] Liam Parks MD (PGY-5) Infectious Diseases Fellow [facility] Pager: [phone] [facility] Associated attestation - Arturo Delacruz MD [...] of care. . Arturo Delacruz MD PhD Supervisor [employer] [facility] Infectious Disease * Consuelo Prado - [...] Units Date/Time GLUCOSE - POINT OF CARE [[id number]] (Abnormal) Collected: 10/25/22745 Order Status: Completed Specimen: Blood Updated: 10/25/22746 Glucose WB/POC 123 mg/dL Specimen Type Cap Fingerstick HEPATITIS C AB SCREEN RFLX NAAT QUANT [[id number]] (Normal) Collected: 10/25/22138 Order Status: Completed Specimen: [...] HIV-2 ANTIBODY + HIV P24 AG PANEL [[id number]] (Normal) Collected: 10/25/22138 Order Status: Completed Specimen: Blood Updated: 10/25/22255 HIV Antigen/Antibody 1 & 2 Non-reactive Comment: No Laboratory evidence of HIV infection. MAGNESIUM BLOOD [[id number]] (Normal) Collected: 10/25/226 Order Status: Completed Specimen: Blood Updated: 10/25/2247 Magnesium 2.1 mg/dL PHOSPHORUS BLOOD [[id number]] (Normal) Collected: 10/25/226 Order Status: Completed Specimen: Blood Updated: 10/25/2247 Phosphorus 3.7 mg/dL BASIC METABOLIC PANEL (CALCIUM TOTAL) [[id number]] (Abnormal) Collected: 10/25/226 Order Status: Completed Specimen: Blood Updated: 10/25/22 0048 BUN 16 mg/dL Creatinine 0.48 mg/dL Sodium 140 mmol/L Potassium 4.0 mmol/L Chloride 106 mmol/L CO2 25 mmol/L Glucose 116 mg/dL Calcium 9.0 mg/dL Anion Gap 13 BUN/Creatinine Ratio 33 Osmolality Calculated 292 mOsm/kg eGFR by CKD-EPI >90 mL/min/1.73 m2 CBC W AUTO DIFFERENTIAL [[id number]] (Abnormal) Collected: 10/25/226 Order Status: Completed Specimen: Blood Updated: 10/25/22 0027 WBC 16.6 10??3/uL RBC 2.65 10??6/uL Hemoglobin [...] Absolute 0.18 GLUCOSE - POINT OF CARE [[id number]] Collected: 10/24/22 2016 Order Status: Completed Specimen: Blood Updated: 10/24/222024 Glucose WB/POC 111 mg/dL Specimen Type Cap Fingerstick GLUCOSE - POINT OF CARE [[id number]] (Abnormal) Collected: 10/24/22 1237 Order Status: Completed Specimen: Blood Updated: 10/24/22 1734 Glucose WB/POC 130 mg/dL Specimen Type Cap Fingerstick GLUCOSE - POINT OF CARE [[id number]] Collected: 10/24/22 1710 Order Status: Completed Specimen: Blood Updated: 10/24/22 171 Glucose WB/POC 112 mg/dL Specimen Type Cap Fingerstick LUPUS ANTICOAGULANT PANEL [[id number]] (Abnormal) Collected: 10/23/222028 Order Status: Completed Specimen: [...] of APAS. GLUCOSE - POINT OF CARE [[id number]] (Abnormal) Collected: 10/24/22914 Order Status: Completed Specimen: Blood Updated: 10/24/2216 Glucose WB/POC 130 mg/dL Specimen Type Cap [...] right lateral ventricle, and approximately 3-4 mm tvvhn-ge-bwrg midline shift, grossly similar to the prior. [...] verification. Report dictated by Tim Major MD (residential sales). Jasper Ornelas MD have personally reviewed and [...] The report is dictated by Miranda Bowen MD(residential sales) Jasper Ornelas MD have personally reviewed and [...] hemorrhage. Report dictated by Lorenzo Horta MD (residential sales). Lonnie Ornelas MD have personally reviewed and [...] prior. > Dictated by Bassam Jovel M.D. (residential sales) I, Gonzalez Velasco MD have personally reviewed [...] Gastrointestinal # Hx of GERD ?? - MULTI SITE LEASING CONSULTANT swallow evaluation: when stable - Diet: NG [...] bedside Cordero Kyle Prado Medical Student, MS3 [facility]. Associated attestation - Shahbaz Bowen MD - [...] 3.1 3.4 Recent Labs Component Name 10/25/22 0007 10/23/22202810/23/229 10/22/22 0153 WBC 16.6* 17.4* 16.7* - RBC 2.65* 2.58* 2.52* - HGB 8.2* 8.0* 7.8* - HCT 25.1* 24.4* 23.8* - PLT - - - 199 Recent Labs Component Name 10/20/22 0302 06/15/22 0757 CHOL 173 204* TRIG 201* 251* HDL 42 37* LDLCALC 91 117* Recent Labs Component Name 10/20/22 1015 HGBA1C 6.0* EAG 126 Recent Labs Component Name 10/25/22 00010/23/22202810/23/22 0129 PLTCOUNT 402* 310 265 * Tim [...] ?? Interval History: NAEON. Extubated yesterday to NH. Dentist evaluated, no concern for dental issues. [...] intact bilaterally Labs: Recent Labs Component Name 10/25/22610/23/22202810/23/2212810/22/22 0153 WBC 16.6* 17.4* 16.7* - RBC 2.65* 2.58* 2.52* - HGB 8.2* 8.0* 7.8* - HCT 25.1* 24.4* 23.8* - PLT - - - 199 Recent Labs Component Name 10/25/22610/23/22202810/23/22128 NA 140 140 140 CL 106 110* 108* CO2 25 23 25 BUN 16 14 13 CREATININE 0.48* 0.56 0.51* CALCIUM 9.0 8.5 8.3* No results for input(s): MG in the last 69744 hours. Recent Labs Component Name 10/25/22610/23/22202810/23/22128 PHOS 3.7 3.1 3.4 Recent Labs Component Name 10/23/22202810/20/22 03010/19/22 0824 PT 13.4 13.6 12.3 INR 1.0 1.1 0.9 PTT 21.4* 24.4 - No results for input(s): A1C in the last 73096 hours. Recent Labs Component Name 10/20/2230106/15/22 0757 CHOL 173 204* HDL 42 37* LDLCALC 91 117* TRIG 201* 251* Recent Labs Component Name 06/15/22 0757 TSH 1.873 No results for input(s): CKMB, CKTOTAL, CKMB, TROPONINI, BNP in the last [address] ANGIO BRAIN NECK STROKE Result Date: 10/19/2022 PROCEDURE: CT ANGIO BRAIN NECK STROKE, DATE/TIME OF EXAM: 10/19/2022 8:16 AM, LOCATION [facility] INDICATION: Code Stroke ADDITIONAL CLINICAL [...] DATE/TIME OF EXAM: 10/19/2022 8:04 AM, LOCATION [facility] INDICATION: Code Stroke ADDITIONAL CLINICAL [...] issues ??-NPO until passes swallow. TF - MULTI SITE LEASING CONSULTANT swallow evaluation Renal/Electrolytes ? No acute issues [...] function and cultures as needed. Sajan Del Rosario, PharmD 10/25/2022 6:26 AM [facility] Vancomycin Guideline SUBJECTIVE/OBJECTIVE Consuelo Darby is a [...] Given - Contrast 10/23/2022 Vancomycin Administrations from [facility] (last 72 hours) Date/Time Action Medication Dose Rate 10/25/22 0200 $ New Bag/Syringe vancomycin (Vancocin) 2,250 mg in 545 mL IVPB 2,250 mg 242.22 mL/hr No results for input(s): VANCORNDM, VANCTROUGH, VANCOTROUGH, VANCOPEAK in the last 86676 hours. * Jorge Dodd - 10/25/2022 12:30 [...] to ask pt. Will send message to [facility] Barbara estes, for followup and contacting clinical research tech once clear wishes of pt are known. [...] arrival patient noted to janete Amy astorga, Amy hemainopsia, mild dysarthria, and extinction. NIHSS: 7. [...] -- -- (!) 111 -- 99 % 10/23/222113 119/61 -- -- 106 -- -- 10/23/22 2100 119/61 -- -- 96 21 95 % 10/23/221999 136/68 98.7 ??F (37.1 ??C) Axillary (!) [...] Gait Deferred Labs: Recent Labs Component Name 10/23/22202810/23/22 0129 10/22/22 0153 10/21/22 2316 WBC 17.4* 16.7* - 18.4* RBC 2.58* 2.52* - 2.62* HGB 8.0* 7.8* - 8.1* HCT 24.4* 23.8* - 25.1* PLT - - 199 - Recent Labs Component Name 10/23/22202810/23/22 0129 10/21/22 2316 NA 140 140 142 CL 110* 108* 111* CO2 23 25 20* BUN 14 13 16 CREATININE 0.56 0.51* 0.65 CALCIUM 8.5 8.3* 8.0* No results for input(s): MG in the last 53357 hours. Recent Labs Component Name 10/23/22202810/23/2212810/21/22 231 PHOS 3.1 3.4 2.7* Recent Labs Component Name 10/23/22202810/20/22 0302 10/19/22 0824 PT 13.4 13.6 12.3 INR 1.0 1.1 0.9 PTT 21.4* 24.4 - No results for input(s): A1C in the last 45084 hours. Recent Labs Component Name 10/20/22 0302 06/15/22 0757 CHOL 173 204* HDL 42 37* LDLCALC 91 117* TRIG 201* 251* Recent Labs Component Name 06/15/22 0757 TSH 1.873 No results for input(s): CKMB, CKTOTAL, CKMB, TROPONINI, BNP in the last [address] ANGIO BRAIN NECK STROKE Result Date: 10/19/2022 PROCEDURE: CT ANGIO BRAIN NECK STROKE, DATE/TIME OF EXAM: 10/19/2022 8:16 AM, LOCATION [facility] INDICATION: Code Stroke ADDITIONAL CLINICAL [...] DATE/TIME OF EXAM: 10/19/2022 8:04 AM, [facility] [facility] INDICATION: Code Stroke ADDITIONAL CLINICAL [...] Gastrointestinal ? No acute issues ?? - MULTI SITE LEASING CONSULTANT swallow evaluation Renal/Electrolytes ? No acute issues [...] following - maintain normothermic and euglycemic - PT/OT/MULTI SITE LEASING CONSULTANT when stable Temp: [98.5 ??F (36.9 ??C)-100.2 ??F (37.9 ??C)] 98.9 ??F (37.2 ??C) Pulse: [85-140] 113 Resp: [16-34] 22 BP: (97-147)/(55-98) 147/94 O2 %: [30 %] 30 % Recent Labs Component Name 10/23/222028 WBC 17.4* Recent Labs Component Name 10/23/22202810/23/22 0129 10/21/22 2316 06/15/22 0757 12/09/18 0807/25/18205503/01/16 0817 SODIUM - - - - 138 [...] - Diet: Goal TF Vital 55cc/hr, FWF [id number] - GI ppx: Lansoprozole - Last BM: [...] bedside Paris Mohr MD Neurology Resident. PGY-3 [facility]. Associated attestation - Shahbaz Bowen MD - [...] takes deep breath when asked. Extubated to [place] [facility] Aortic vegetation 10/23: Vegetation discovered differential [...] -- -- 10/23/222113 -- 106 -- 119/61 10/23/222099 -- 96 21 119/61 10/23/221999 98.7 ??F (37.1 ??C) (!) 120 20 136/68 10/23/22 1900 -- 100 20 115/56 10/23/22 1845 -- 104 24 114/69 10/23/22 1830 -- 99 21 117/60 10/23/22 181 -- 108 (!) 34 120/60 10/23/22 1800 [...] 29 159/75 Recent Labs Component Name 10/23/22202810/23/22 0129 10/21/22 [...] Date/Time BETA-2 GLYCOPROTEIN 1 ANTIBODY IGG/IGM PANEL [[id number]] Collected: 10/23/222028 Order Status: Sent Specimen: Blood Updated: 10/23/222118 CARDIOLIPIN ANTIBODY IGA [[id number]] Collected: 10/23/222028 Order Status: Sent Specimen: Blood Updated: 10/23/222118 CARDIOLIPIN ANTIBODY IGG [[id number]] Collected: 10/23/222028 Order Status: Sent Specimen: Blood Updated: 10/23/222118 BETA-2 GLYCOPROTEIN 1 ANTIBODY IGA [[id number]] Collected: 10/23/222028 Order Status: Sent Specimen: Blood Updated: 10/23/222118 CARDIOLIPIN ANTIBODY IGM [[id number]] Collected: 10/23/222028 Order Status: Sent Specimen: Blood Updated: 10/23/222118 PHOSPHORUS BLOOD [[id number]] (Normal) Collected: 10/23/222028 Order Status: Completed Specimen: Blood Updated: 10/23/222113 Phosphorus 3.1 mg/dL MAGNESIUM BLOOD [[id number]] (Normal) Collected: 10/23/222028 Order Status: Completed Specimen: Blood Updated: 10/23/222113 Magnesium 2.1 mg/dL BASIC METABOLIC PANEL (CALCIUM TOTAL) [[id number]] (Abnormal) Collected: 10/23/222028 Order Status: Completed Specimen: Blood Updated: 10/23/222113 BUN 14 mg/dL Creatinine 0.56 mg/dL Sodium 140 mmol/L Potassium 4.1 mmol/L Chloride 110 mmol/L CO2 23 mmol/L Glucose 119 mg/dL Calcium 8.5 mg/dL Anion Gap 11 BUN/Creatinine Ratio 25 Osmolality Calculated 292 mOsm/kg eGFR by CKD-EPI >90 mL/min/1.73 m2 CBC W AUTO DIFFERENTIAL [[id number]] (Abnormal) Collected: 10/23/222028 Order Status: Completed Specimen: [...] Immature Granulocytes Absolute 0.15 LAB MISC TEST [[id number]] Collected: 10/23/222028 Order Status: Sent Specimen: Blood Updated: 10/23/222053 LUPUS ANTICOAGULANT PANEL [[id number]] Collected: 10/23/222028 Order Status: Sent Specimen: Blood Updated: 10/23/222042 GLUCOSE - POINT OF CARE [[id number]] Collected: 10/23/221756 Order Status: Completed Specimen: Blood Updated: 10/23/221757 Glucose WB/POC 105 mg/dL Specimen Type Cap Fingerstick ERYTHROCYTE SEDIMENTATION RATE [[id number]] (Abnormal) Collected: 10/23/22 154 Order Status: Completed Specimen: Blood Updated: 10/23/22 1625 Erythrocyte Sedimentation Rate Westergren 55 MM/HR C-REACTIVE PROTEIN [[id number]] (Abnormal) Collected: 10/23/22 1547 Order Status: Completed Specimen: Blood Updated: 10/23/22 1619 C-Reactive Protein 12.1 mg/dL GLUCOSE - POINT OF CARE [[id number]] Collected: 10/23/22 1124 Order Status: Completed Specimen: [...] The report is dictated by Miranda Bowen MD(residential sales) I, Jasper Sifuentes MD have personally reviewed [...] hemorrhage. Report dictated by Lorenzo Horta MD (residential sales). ILonnie MD have personally reviewed and interpreted [...] prior. > Dictated by Bassam Jovel M.D. (residential sales) Gonzalez Ornelas MD have personally reviewed and [...] febrile Gastrointestinal # Hx of GERD - MULTI SITE LEASING CONSULTANT swallow evaluation: when stable - Diet: NG [...] bedside Cordero Kyle Prado Medical Student, MS3 [facility]. Associated attestation - Shahbaz Bowen MD - [...] see Ms. Consuelo Darby in consultation at [facility] on 10/23/2022 for evaluation of vegetation that [...] appearance: able to follow simple commands HEENT: [place] noted in the scalp Neck: The thyroid [...] Intake/Output Summary (Last 24 hours) at 10/24/2022 0775 Last data filed at 10/24/2022 0600 Gross [...] REVIEWED: LABS: CBC: Recent Labs Component Name 10/23/22202810/23/2212810/22/223 10/21/222315 WBC 17.4* 16.7* - 18.4* HGB 8.0* 7.8* - 8.1* HCT 24.4* 23.8* - 25.1* MCV 94.6 94.4 - 95.8 PLT - - 199 - Coagulation Panel: Recent Labs Component Name 10/20/22 03010/19/22 0810/19/22 0809 PT 13.6 12.3 - INR 1.1 0.9 0.9 PTT 24.4 - - BMP: Recent Labs Component Name 10/23/22202810/23/2212810/21/222315 NA 140 140 142 CL 110* 108* 111* CO2 23 25 20* BUN 14 13 16 CREATININE 0.56 0.51* 0.65 CALCIUM 8.5 8.3* 8.0* No results for input(s): MG in the last 07870 hours. Recent Labs Component Name 10/23/22202810/23/2212810/21/222315 PHOS 3.1 3.4 2.7* Hepatic Panel: Recent [...] input(s): CKTOTAL, CKMB, TROPONINI in the last 27162 hours. Invalid input(s): CKMBINDEX Lipid Panel: Recent Labs Component Name 10/20/22 0302 LDLCALC 91 HDL 42 Cardiac Enzymes: Troponin x 2: Negative (<3) ?? Lipid Panel: Recent Labs Component Name 10/20/22 0302 LDLCALC 91 HDL 42 ?? A1c: 6.0 [...] right lateral ventricle, and approximately 3-4 mm mkymz-co-waen midline shift, grossly similar to the prior. [...] Labs Component Name 10/23/22 0129 10/22/22 0153 10/21/226 10/21/22 0753 WBC 16.7* - 18.4* 18.6* RBC 2.52* - 2.62* 3.01* HGB 7.8* - 8.1* 9.4* HCT 23.8* - 25.1* 27.9* PLT - 199 - - Recent Labs Component Name 10/23/22 01210/21/22 2316 10/21/22 0459 NA 140 142 142 CL 108* 111* 115* CO2 25 20* 16* BUN 13 16 12 CREATININE 0.51* 0.65 0.64 CALCIUM 8.3* 8.0* 8.2* No results for input(s): MG in the last 61600 hours. Recent Labs Component Name 10/23/22 0129 10/21/22 2316 10/21/22 0459 PHOS 3.4 2.7* 2.2* Recent Labs Component Name 10/20/22 0302 10/19/22 0824 10/19/22 0809 PT 13.6 12.3 - INR 1.1 0.9 0.9 PTT 24.4 - - No results for input(s): A1C in the last 54936 hours. Recent Labs Component Name 10/20/22 0302 06/15/22 0757 CHOL 173 204* HDL 42 37* LDLCALC 91 117* TRIG 201* 251* Recent Labs Component Name 06/15/22 0757 TSH 1.873 No results for input(s): CKMB, CKTOTAL, CKMB, TROPONINI, BNP in the last [address] ANGIO BRAIN NECK STROKE Result Date: 10/19/2022 PROCEDURE: CT ANGIO BRAIN NECK STROKE, DATE/TIME OF EXAM: 10/19/2022 8:16 AM, LOCATION [facility] INDICATION: Code Stroke ADDITIONAL CLINICAL [...] DATE/TIME OF EXAM: 10/19/2022 8:04 AM, LOCATION [facility] INDICATION: Code Stroke ADDITIONAL CLINICAL [...] pending PT/OT Evaluation: pending Smoking cessation; will staff genetic counselor: N/A Migraine - verapamil 40 TID GENESIS [...] Gastrointestinal ? No acute issues ?? - MULTI SITE LEASING CONSULTANT swallow evaluation Renal/Electrolytes ? No acute issues [...] start heparin drip pending NSGY clearance given [facility]. Blood cultures ordered UDS negative on admission Rheumatology consulted given family history of Sjogrens ICU for at least 48 hours. Orientation Level: Unable to Obtain: Family Support (Name and Phone): Extended Emergency Contact Information Primary Emergency Contact: Hi Darby Address: [address] [place] [id number] [facility] Relation: Spouse Secondary Emergency Contact: Sandra Disla [facility] Mobile Relation: Mother Transportation at Discharge: Ambulance: READMISSION RISK SCORE is 16 at 2:17 PM 10/23/2022.: Name:Bulmaro Ochoa RN BSN manager reliability [phone] * Laura Patel APRN-ASHOK - 10/23/2022 2:10 PM CDT Neurosurgery Plan [...] for any acute decline in neuro exam. Laura Patel, [employer] * Sosa Degroot MD - 10/23/2022 2:01 [...] following - maintain normothermic and euglycemic - PT/OT/MULTI SITE LEASING CONSULTANT when stable Temp: [98.2 ??F (36.8 ??C)-99.5 ??F (37.5 ??C)] 99.4 ??F (37.4 ??C) Pulse: [86-142] 100 Resp: [9-29] 23 BP: (95-159)/(52-116) 106/65 O2 %: [30 %] 30 % Recent Labs Component Name 10/23/22 012 WBC 16.7* Recent Labs Component Name 10/23/22 0129 10/21/22 2316 10/21/22 0459 06/15/22 0757 12/09/18 0812 07/25/18 2056 03/01/16 0817 SODIUM - - - - [...] 12:13 PM CDT Neurosurgery Progress Note Consuelo Stock Mehnaz 10/23/22 Hospital Day: 4 Subjective: CT H [...] In: 2432.8 [I.V.:649.8] Out: 1994 [Urine:1950; Drains:45] ELONCIO Drain: 45 (20) ml. Respiratory: PEEP/CPAP: 5 cm H20 Pressure Support: 5 cm H2O OBSERVED PEAK INSPIRATORY PRESSURE (cm H2O): 12 cm H2O SET TIDAL VOLUME (mL): 450 ML Spontaneous Tidal Volume (mL): 366 ML EXHALED TIDAL VOLUME (ml): 458 ml Labs: Recent Labs Component Name 10/23/22 012 WBC 16.7* HGB 7.8* HCT 23.8* PLTCOUNT 265 Recent Labs Component Name 10/23/22 0129 NA 140 POTASSIUM 3.4* CO2 25 BUN [...] hemiparesis 1/5, sensation intact to noxious stimulation ?? Assessment: [...] hemicraniectomy and ICPm insertion 10/[address] Marquze.??Following the operation, she was transferred intubated to [...] Fariha Matta MD 12:13 PM 10/23/22 * Jackelyn Flores RN - 10/23/2022 11:33 AM CDT [...] post acute care needs Patient is an [employer] employee; [employer] for all post acute care needs Payer/Plan Subscriber Name Rel Member # Group # [id number] CHANDLEREarl CONSUELO DARBY Juma [id number] [address] [id number] Anticipated level of care at discharge: Home, Acute Rehab Facility: Anticipated level of care provider: None: Anticipated Discharge Date: 10/26/22: Orientation Level: Unable to Obtain: Family Support (Name and Phone): Extended Emergency Contact Information Primary Emergency Contact: Hi Darby Address: [address] [place] [address] [place] [address] [facility] Relation: Spouse Secondary Emergency Contact: Sandra Disla [facility] Mobile Relation: Mother Transportation at Discharge: Ambulance: [...] 123/68 10/22/22 2100 -- 96 23 133/72 10/22/22 2023 -- 100 -- -- 10/22/22 2000 99.5 [...] 19 126/64 Recent Labs Component Name 10/23/22 0129 10/21/22 [...] fevers, increased post procedure, has only received alfonzo-procedural abx 10/23: Send Blood cultures x2 LINES [...] long process. Family continues to need support. 309/ Jorge Dodd 10/23/2022 7:16 AM * Bob [...] BP Temp Temp src Pulse Resp SpO2 10/23/224 -- -- -- 97 -- 98 % [...] (37.4 ??C) Axillary 94 22 98 % 10/22/222099 133/72 -- -- 96 23 98 % [...] discussed with Dr. Andrés MD. Bob Weaver [facility] * Paris Mohr MD - [...] route. On arrival patient noted to Amy astorga, L hemainopsia, mild dysarthria, and [...] start heparin drip pending NSGY clearance given [facility]. - Blood cultures ordered - UDS [...] - Diet: Goal TF Vital 55cc/hr, FWF [id number] - GI ppx: Lansoprozole - Last BM: [...] bedside Paris Mohr MD Neurology Resident. PGY-3 [facility]. * Jing Powers, [facility] - 10/22/2022 2:20 PM CDT Transport Start Time: 14:10 Transport Assisted by 1 # of Therapists Transport From: 3N Transport To: CT 3rd FL Total Transport Time: 25 min Patient transported [...] Accuchecks Hematology Recent Labs Component Name 10/21/22 2316 [...] at bedside Eli Alcaraz MD Neurology Resident. [facility]. Associated attestation - Dary Garvey MD - [...] Yared Chavira - 10/22/2022 11:02 AM CDT Land Leasing Information Clerk provided pastoral care and support to family at patient's bedside - patient's and older sister. With permission, Land Leasing Information Clerk provided compassionate touch and prayed for patient and her family. Yared Chavira 10/22/2022 11:03 AM * Jarvis Gagnon MD - 10/22/2022 9:01 AM CDT Neurosurgery Daily Progress Note Consuelo Stock Mehnaz 10/22/22 Hospital Day: 3 Subjective: No acute [...] MEDICATIONS: ?? *Hold/Avoid Medication, Other, 0800 and 2000 ?? *Hold/Avoid Medication, Other, DIRECTED ?? 0.9% [...] 103 17 153/75 Recent Labs Component Name 10/21/22231510/21/229 10/20/22 030 NA 142 142 138 CL 111* 115* 108* CO2 20* 16* 21* BUN 16 12 6* CREATININE 0.65 0.64 0.50* CALCIUM 8.0* 8.2* 8.2* PHOS 2.7* 2.2* - Recent Labs Component Name 10/22/22 0153 10/21/22231510/21/22 0753 10/21/229 WBC - 18.4* 18.6* 18.7* RBC - [...] 115/69 -- -- 78 18 97 % 10/21/22 202 126/66 -- -- 84 -- -- 10/21/221999 [...] 148/76 -- -- 97 31 97 % 08/12/23 0910 143/78 -- -- 98 17 97 [...] 143/79 -- -- 96 17 97 % 10/21/22 0820 146/77 -- -- 101 18 [...] Labs: Recent Labs Component Name 10/22/22 0153 10/21/22 2316 10/21/22 0753 10/21/22 0459 WBC - 18.4* 18.6* 18.7* RBC - 2.62* 3.01* 2.98* HGB - 8.1* 9.4* 9.4* HCT - 25.1* 27.9* 27.8* PLT 199 - - - Recent Labs Component Name 10/21/22 2316 10/21/229 10/20/22 030 NA 142 142 138 CL 111* 115* 108* CO2 20* 16* 21* BUN 16 12 6* CREATININE 0.65 0.64 0.50* CALCIUM 8.0* 8.2* 8.2* No results for input(s): MG in the last 15815 hours. Recent Labs Component Name 10/21/22 2316 10/21/22 0459 PHOS 2.7* 2.2* Recent Labs Component Name 10/20/22 0302 10/19/22 0824 10/19/22 0809 PT 13.6 12.3 - INR 1.1 0.9 0.9 PTT 24.4 - - No results for input(s): A1C in the last 76748 hours. Recent Labs Component Name 10/20/22 0302 06/15/22 0757 CHOL 173 204* HDL 42 37* LDLCALC 91 117* TRIG 201* 251* Recent Labs Component Name 06/15/22 0757 TSH 1.873 No results for input(s): CKMB, CKTOTAL, CKMB, TROPONINI, BNP in the last [address] ANGIO BRAIN NECK STROKE Result Date: 10/19/2022 PROCEDURE: CT ANGIO BRAIN NECK STROKE, DATE/TIME OF EXAM: 10/19/2022 8:16 AM, LOCATION [facility] INDICATION: Code Stroke ADDITIONAL CLINICAL [...] DATE/TIME OF EXAM: 10/19/2022 8:04 AM, LOCATION [facility] INDICATION: Code Stroke ADDITIONAL CLINICAL INFORMATION: [...] pending PT/OT Evaluation: pending Smoking cessation; will staff genetic counselor: N/A ?? Neurological ?? R M1 ischemic [...] pending PT/OT Evaluation: pending Smoking cessation; will staff genetic counselor: N/A Migraine - verapamil 40 TID Cardiovascular [...] Gastrointestinal ? No acute issues ?? - MULTI SITE LEASING CONSULTANT swallow evaluation Renal/Electrolytes ? No acute issues [...] ?? Stephanie Hester MD Neurology Resident * Shauna Martines [...] cont straight cath. Prefer NO puentes insertion PT/OT/MULTI SITE LEASING CONSULTANT Dary Garvey MD Neurologic Critical Care Attending 10/21/2022 * Shania Arce SLP - 10/21/2022 12:27 PM CDT [facility] Department of Physical Medicine & Rehabilitation Progress Note Patient: Consuelo Daryb Med Record Number: [id number] Date of : 1980 Age: [age] year old 10/21/22 1200 Therapy on Hold Therapy on Hold Surgery;New Order Required for Therapy Barb Lopes MS [facility])-MULTI SITE LEASING CONSULTANT Speech Language Pathologist * Stephanie Hester MD - 10/21/2022 12:08 PM CDT Stroke Service Daily Progress Note Consuelo Darby Age: [age] year old Date of : 1980 Date of Admission: 10/19/2022 Hospital Day: 2 Subjective Consuelo Kvale is a 41yo M who developed acute [...] 28 97 % -- -- 10/21/22 0555 144/ (!) 100.4 ??F (38 ??C) -- 105 [...] -- 102 21 96 % -- -- 10/20/22 180 108/67 -- -- 101 13 96 % -- -- 10/20/221803 -- -- -- -- 12 -- -- [...] Deferred Labs: Recent Labs Component Name 10/21/22 07510/21/2245810/20/22 1640 10/20/22301 WBC 18.6* 18.7* - 19.5* RBC 3.01* 2.98* - 3.83 HGB 9.4* 9.4* 12.0 11.9* HCT 27.9* 27.8* 36.6 35.4 Recent Labs Component Name 10/21/2245810/20/22 03010/19/22 0824 NA 142 138 139 CL 115* 108* 108* CO2 16* 21* 21* BUN 12 6* 13 CREATININE 0.64 0.50* 0.84 CALCIUM 8.2* 8.2* 8.9 No results for input(s): MG in the last 15651 hours. Recent Labs Component Name 10/21/22458 PHOS 2.2* Recent Labs Component Name 10/20/22 0302 10/19/22 0824 10/19/22 0809 PT 13.6 12.3 - INR 1.1 0.9 0.9 PTT 24.4 - - No results for input(s): A1C in the last 32558 hours. Recent Labs Component Name 10/20/22 03006/15/22756 CHOL 173 204* HDL 42 37* LDLCALC 91 117* TRIG 201* 251* Recent Labs Component Name 06/15/22 075 TSH 1.873 No results for input(s): CKMB, CKTOTAL, CKMB, TROPONINI, BNP in the last [address] ANGIO BRAIN NECK STROKE Result Date: 10/19/2022 PROCEDURE: CT ANGIO BRAIN NECK STROKE, DATE/TIME OF EXAM: 10/19/2022 8:16 AM, LOCATION [facility] INDICATION: Code Stroke ADDITIONAL CLINICAL [...] DATE/TIME OF EXAM: 10/19/2022 8:04 AM, LOCATION [facility] INDICATION: Code Stroke ADDITIONAL CLINICAL [...] pending PT/OT Evaluation: pending Smoking cessation; will staff genetic counselor: N/A ?? Neurological ?? R M1 ischemic [...] pending PT/OT Evaluation: pending Smoking cessation; will staff genetic counselor: N/A Migraine - verapamil 40 TID Cardiovascular [...] Gastrointestinal ? No acute issues ?? - MULTI SITE LEASING CONSULTANT swallow evaluation Renal/Electrolytes ? No acute issues [...] Max: 23 mmHg] Input/Output: 10/20 0701 - 10/21 0700 In: 3119.5 [I.V.:2864.5] Out: 2695 [Urine:2625; [...] PRN NA goal normonatremic Continue q1 neurochecks Valedz Rodriguez MD 5:51 PM 10/21/22 * Deyanira Russell, PT - 10/21/2022 8:23 AM CDT [facility] Department of Physical Medicine & Rehabilitation Progress Note Patient: Consuelo Darby Med Record Number: [id number] Date of : 1980 Age: [age] year [...] euglycemic - pending SARAH w/ ILR - PT/OT/MULTI SITE LEASING CONSULTANT when stable Temp: [99 ??F (37.2 ??C)-100.4 ??F (38 ??C)] 100.4 ??F (38 ??C) Pulse: [86-147] 103 Resp: [8-42] 17 BP: (100-153)/(60-88) 153/75 Arterial Line BP #1: (73-145)/(52-106) 86/81 O2 %: [30 %-40 %] 30 % Recent Labs Component Name 10/21/22 0459 WBC 18.7* Recent Labs Component Name 10/21/22 [...] Rose OT - 10/21/2022 7:37 AM CDT [facility] Department of Physical Medicine & Rehabilitation Progress Note Patient: Consuelo Darby Med Record Number: [id number] Date of : 1980 Age: [age] year old 10/21/22 0700 Therapy on Hold Therapy on Hold Surgery;Chart Reviewed;New Order Required for Therapy * Consuelo Prado Bin - 10/21/2022 7:33 AM CDT Images from [...] Value Units Date/Time CBC W AUTO DIFFERENTIAL [[id number]] Order Status: Sent Specimen: Blood BLOOD GASES ART + COOX PANEL [[id number]] Order Status: Sent Specimen: Blood, arterial from Arterial Blood COMPLEMENT C3 [[id number]] (Normal) Collected: 10/21/22 0459 Order Status: Completed Specimen: Blood Updated: 10/21/22546 Complement C3 155 mg/dL MAGNESIUM BLOOD [[id number]] (Normal) Collected: 10/21/22458 Order Status: Completed Specimen: Blood Updated: 10/21/22546 Magnesium 2.2 mg/dL Comment: Hemolysis detected in this specimen. Hemolysis is known to cause elevations in this analyte. Caution should be exercised in the interpretation of this result. Recommend repeat testing if clinically indicated. BASIC METABOLIC PANEL (CALCIUM TOTAL) [[id number]] (Abnormal) Collected: 10/21/22458 Order Status: Completed Specimen: [...] by CKD-EPI >90 mL/min/1.73 m2 PHOSPHORUS BLOOD [[id number]] (Abnormal) Collected: 10/21/22458 Order Status: Completed Specimen: Blood Updated: 10/21/22545 Phosphorus 2.2 mg/dL TROPONIN-I HIGH SENSITIVE BASELINE + 1HR [[id number]] (Normal) Collected: 10/21/22458 Order Status: Completed Specimen: Blood Updated: 10/21/22545 Troponin I High Sensitive <3 ng/L RHEUMATOID FACTOR BLOOD QUANTITATIVE [[id number]] (Normal) Collected: 10/21/22458 Order Status: Completed Specimen: Blood Updated: 10/21/22535 Rheumatoid Factor <15 IU/mL Rheumatoid Factor Screen Negative CBC W/O DIFFERENTIAL [[id number]] (Abnormal) Collected: 10/21/22458 Order Status: Completed Specimen: Blood Updated: 10/21/22524 WBC 18.7 10??3/uL RBC 2.98 10??6/uL Hemoglobin 9.4 g/dL Hematocrit 27.8 % MCV 93.3 fL MCH 31.5 pg MCHC 33.8 g/dL RDW-SD 48.8 fL RDW-CV 14.3 % Platelet Count 260 10??3/uL MPV 10.6 fL nRBC Absolute 0.00 10??3/uL nRBC Auto 0.0 /100 WBC FACTOR V LEIDEN MUTATION PANEL [[id number]] Collected: 10/21/22458 Order Status: Sent Specimen: Blood Updated: 10/21/22 0510 TROPONIN-I HIGH SENSITIVE REFLEX 1HOUR [[id number]] Order Status: Sent Specimen: Blood SARAH BLOOD SCREEN W/REFLEX TITER [[id number]] Collected: 10/21/22458 Order Status: Sent Specimen: Blood Updated: 10/21/22 0506 GLUCOSE - POINT OF CARE [[id number]] (Abnormal) Collected: 10/21/22457 Order Status: Completed Specimen: Blood Updated: 10/21/22 0502 Glucose WB/POC 166 mg/dL Specimen Type Cap Fingerstick GLUCOSE - POINT OF CARE [[id number]] (Abnormal) Collected: 10/21/22120 Order Status: Completed Specimen: Blood Updated: 10/21/22124 Glucose WB/POC 164 mg/dL Specimen Type Cap Fingerstick BLOOD GASES ART + COOX PANEL [[id number]] (Abnormal) Collected: 10/20/22 2246 Order Status: Completed Specimen: Blood, arterial from [...] >20% BLOOD GASES ART + COOX PANEL [[id number]] Order Status: Canceled Specimen: Blood, arterial from Arterial Blood BLOOD GAS ART+LYTES+METAB+COOX POC NOTIF [[id number]] Collected: 10/20/221926 Order Status: Completed Specimen: Other Updated: 10/20/222099 Comment Notification Label Only - See Separate Report BLOOD GAS+COOX+LYTES+METAB ARTERIAL POCT [[id number]] (Abnormal) Collected: 10/20/221935 Order Status: Completed Specimen: [...] Whole Blood 1.6 mmol/L HGB HCT PANEL [[id number]] (Normal) Collected: 10/20/22 1640 Order Status: Completed Specimen: Blood Updated: 10/20/22 1701 Hemoglobin 12.0 g/dL Hematocrit 36.6 % HEMOGLOBIN A1C [[id number]] (Abnormal) Collected: 10/20/22 1015 Order Status: Completed [...] to evaluate metabolic control in patients. Reference: [place] [employer], Standards of Care in Diabetes -2020 In patients 70 years and older consider HbA1c target range of 7.0-7.5% (Reference: Ronal David et al. JAMDA. 2012) The Sebia assay for the measurement of HbA1c is a National Glycohemoglobin Standardization Program (NGSP) certified method. GLUCOSE - POINT OF CARE [[id number]] (Abnormal) Collected: 10/20/22 1132 Order Status: Completed Specimen: Blood Updated: 10/20/22 1142 Glucose WB/POC 124 mg/dL Specimen Type Cap Fingerstick LUPUS ANTICOAGULANT PANEL [[id number]] Collected: 10/20/22 0302 Order Status: Completed Specimen: [...] of APAS. GLUCOSE - POINT OF CARE [[id number]] (Abnormal) Collected: 10/20/2244 Order Status: Completed Specimen: Blood Updated: 10/20/22 0754 Glucose WB/POC 32 mg/dL Specimen Type Cap Fingerstick GLUCOSE - POINT OF CARE [[id number]] (Abnormal) Collected: 10/20/2247 Order Status: Completed Specimen: Blood Updated: 10/20/22 0754 Glucose WB/POC 118 mg/dL Specimen Type Cap Fingerstick Imaging: CT HEAD WO CONTRAST Result Date: 10/20/2022 IMPRESSION: Interval postsurgical changes of decompressive right hemicraniectomy with ICP monitor and subdural drain in place. 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 > Dictated by Bassam Jovel M.D. (residential sales) I, Gonzalez Velasco MD have personally reviewed [...] (POA: Unknown) Hypertension (POA: Unknown) Assessment Consuelo R Kvale is a 41 year old female presenting [...] if febrile Gastrointestinal No active issues - MULTI SITE LEASING CONSULTANT swallow evaluation: failed - Diet: NG - [...] De-escalation: continue ICU Family: updated at bedside Consuelo Brown Medical Student, MS3 [facility]. Associated attestation - Dary Garvey MD - [...] 99.7 ??F (37.6 ??C) 100 18 142/76 10/20/22 2200 -- 105 18 -- 10/20/225 99.1 ??F (37.3 ??C) 102 18 -- [...] - - Recent Labs Component Name 10/21/22 04510/20/22 1640 10/20/22 0302 10/19/22 0824 WBC 18.7* [...] Salo after family left. Offered reflective listening. 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 Pt and Salo have two daughters, 6 and 15. Encouraged Salo in his honest conversation with the girls. Gave report to night Cristina estes for follow up overnight. 309/01 Jorge Dodd 10/21/2022 12:25 AM * Jackelyn [...] Jorge Dodd - 10/20/2022 5:49 PM CDT Land Leasing Information Clerk Doni found pt's father in [facility] crying. Dad shared that pt was headed to surgery emergently to remove part of her skull . Met mom and pt's spouse Salo. Offered pastoral presence and prayer for mom and dad. Family is waiting in [facility]. Surgeon met family and knows where to follow up with them. This corporate strategist will follow up. Ascom: [phone] Jorge Dodd 10/20/2022 5:51 PM * Rima Agarwal - 10/20/2022 3:[address] 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 Modified Wetmore: Current Modified Wetmore Score: 5 AM-PAC 6 Clicks Daily Activity [...] Patient will perform toileting with moderate assist Jail Goal(s): Patient to discharge to appropriate next [...] within reach, with family in room, with RNJackelyn aware. * Cass Benjamin SLP - 10/20/2022 11:[address] [facility] Physical Medicine and Rehabilitation Bedside Swallow Assessment Patient: Consuelo Darby Med Record Number: [id number] Date of : 1980 Age: [age] year [...] placement for nutritional support and medication administration. MULTI SITE LEASING CONSULTANT will continue to follow up for ongoin [...] Impression - Pharyngeal: Moderate Education/Interventions: While performing MULTI SITE LEASING CONSULTANT, Patient was instructed in: results of swallow [...] oropharyngeal swallow function to warrant diet upgrade. Jail Goal (s): Patient to be independent/baseline with functional mobility and self care and be able to safely discharge to prior level of care. Plan: Continue NPO status with plan for ongoing MULTI SITE LEASING CONSULTANT follow up. Cass Lu M.S., [facility]MULTI SITE LEASING CONSULTANT Speech Language Pathologist [phone] * Bulmaro Ochoa [...] Information Primary Emergency Contact: Hi Darby Address: [address] [place] [id number] [facility] Relation: Spouse Secondary Emergency Contact: Sandra Disla [facility] Mobile Relation: Mother Transportation at Discharge: Family: READMISSION RISK SCORE is 15 at 11:11 AM 10/20/2022.: Name: Bulmaro Ochoa RN BSN manager reliability [phone] * Tia Morales, PT - 10/20/2022 10:[address] 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 All lines, monitors, IV's, equipment in place and intact pre and post visit. Patient was in no discomfort and had no additional needs at conclusion of PT eval. * Cass Benjamin SLP - 10/20/2022 10:33 AM CDT [facility] Department of Physical Medicine & Rehabilitation Progress Note Patient: Consuelo Darby Med Record Number: [id number] Date of : 1980 Age: [age] year old 10/20/22 1033 Missed Visit Missed Visit Pt with other disciplines x2 at time of visit this morning, will plan to follow up agian today for swallow terra Lu M.S., [facility])-MULTI SITE LEASING CONSULTANT Speech Language Pathologist [phone] * Jaime Drew [...] -- -- (!) 116 25 97 % 10/19/22 1900 137/97 -- -- (!) 131 [...] Gait Deferred Labs: Recent Labs Component Name 10/20/2230110/19/2282306/15/22 075 WBC 19.5* 10.9* 9.6 RBC 3.83 4.73 4.60 HGB 11.9* 14.4 14.1 HCT 35.4 42.6 42.5 Recent Labs Component Name 10/20/2230110/19/2282306/15/22 075 NA 138 139 138 CL 108* 108* 107 CO2 21* 21* 23 BUN 6* 13 12 CREATININE 0.50* 0.84 0.74 CALCIUM 8.2* 8.9 8.9 No results for input(s): MG in the last 17763 hours. No results for input(s): PHOS in the last 97376 hours. Recent Labs Component Name 10/19/2282310/19/22 0809 PT 12.3 - INR 0.9 0.9 No results for input(s): A1C in the last 15420 hours. Recent Labs Component Name 10/20/2230106/15/22 075 CHOL 173 204* HDL 42 37* LDLCALC 91 117* TRIG 201* 251* Recent Labs Component Name 06/15/22 075 TSH 1.873 No results for input(s): CKMB, CKTOTAL, CKMB, TROPONINI, BNP in the last [address] ANGIO BRAIN NECK STROKE Result Date: 10/19/2022 PROCEDURE: CT ANGIO BRAIN NECK STROKE, DATE/TIME OF EXAM: 10/19/2022 8:16 AM, LOCATION [facility] INDICATION: Code Stroke ADDITIONAL CLINICAL [...] DATE/TIME OF EXAM: 10/19/2022 8:04 AM, LOCATION [facility] INDICATION: Code Stroke ADDITIONAL CLINICAL [...] pending PT/OT Evaluation: pending Smoking cessation; will staff genetic counselor: N/A ?? Neurological ?? R M1 ischemic [...] pending PT/OT Evaluation: pending Smoking cessation; will staff genetic counselor: N/A Migraine - verapamil 40 TID Cardiovascular [...] Gastrointestinal ? No acute issues ?? - MULTI SITE LEASING CONSULTANT swallow evaluation Renal/Electrolytes ? No acute issues [...] Hester MD Neurology Resident * Consuelo Prado - 10/20/2022 6:50 AM CDT Images from [...] pushes. Patient needs to lay flat so MULTI SITE LEASING CONSULTANT swallow assessment not possible for the time [...] -- 108 20 97 % -- -- 10/19/227 144/79 -- -- -- -- -- -- -- 10/19/221999 132/71 97.7 ??F (36.5 ??C) Axillary (!) 137 14 97 % -- -- 10/19/22 1950 -- -- -- (!) 116 17 98 % -- -- 10/19/221944 -- -- -- (!) 125 16 97 % -- -- 10/19/220 -- -- -- (!) 113 25 97 [...] 5/5 5/5 Left 1/5 1/5 1/5 1/5 Sensory LT: not tested PP: not tested [...] as patient needs to lie flat and MULTI SITE LEASING CONSULTANT cannot evaluate. Cardiovascular Pulse Min: 94 Max: [...] Protonix 40 mg home medication ordered. - MULTI SITE LEASING CONSULTANT swallow evaluation: pending MULTI SITE LEASING CONSULTANT - Diet: starting tube feeding - Last [...] updated at bedside Case findings discussed with MD Consuelo Hessg Medical Student, M3 [facility]. Associated attestation - Dary Garvey MD - 10/20/2022 3:40 PM CDT For Medical Student Practice Only * Jackelyn Flores RN - 10/19/2022 4:55 PM CDT [facility] * Sosa Degroot MD - 10/19/2022 2:20 [...] Vascular and Interventional Neurology Fellow * Sima Gardner SLP - 10/19/2022 1:20 PM CDT [facility] Department of Physical Medicine & Rehabilitation Progress Note Patient: Consuelo Darby Med Record Number: [id number] Date of : 1980 Age: [age] year old 10/19/22 1320 Missed Visit Missed Visit Other (Comment) MULTI SITE LEASING CONSULTANT orders received and acknowledged. Per consultation with RN pt not cleared to sit up to participate in swallow evaluation until later this date. MULTI SITE LEASING CONSULTANT will reattempt as appropriate. Speech Language Pathologist [...] Information Primary Emergency Contact: Hi Darby Address: [address] [place] [address] [place] [address] [facility] Relation: Spouse Secondary Emergency Contact: Sandra Disla [facility] Mobile Relation: Mother Insurance: Payer/Plan Subscriber Name Rel Member # Group # [employer]* CONSUELO DARBY [id number] [address] [id number] Prior level of functioning: Independent with ADL's [...] Mother and are supportive. Short Term Goals: Conveyor Operator Goals: Family/Support included in planning: Yes Patient and Family Questions/Concerns: None at present. 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 Thank you. Assessment Completed by: Yoon Cuadra [...] D3, cholecalciferol, 50 MCG (1999 [place]) tablet CURRENT MEDICATIONS: ??? *Hold/Avoid Medication Other [...] Hester MD - 10/19/2022 8:03 AM CDT [facility] Stroke History and Physical Consuelo Darby Age: [...] No aphasia; normal. 10 Dysarthria 1 = Tnlc-cv-atdyzfis dysarthria; patient slurs at least some words [...] neuroimaging? no 3. Baseline disability with modified Wetmore score greater than or equal to 3? [...] pending PT/OT Evaluation: pending Smoking cessation; will staff genetic counselor: N/A Neurological R M1 ischemic stroke; active [...] pending PT/OT Evaluation: pending Smoking cessation; will staff genetic counselor: N/A Cardiovascular No acute issues - 12-lead [...] respiratory distress Gastrointestinal No acute issues - MULTI SITE LEASING CONSULTANT swallow evaluation Renal/Electrolytes No acute issues - [...] Consuelo Darby is a 41 year old F who presents with RMCA syndrome sp TNK and MT. Large infarctionon repeat CT, but mild midline shift. Lid apraxia and following briskly on right. Slight LLE movement. DCH possible - repeat CT at 0400 on [...] 20 136/82 10/19/222046 -- -- -- 144/79 10/19/22 2000 97.7 ??F (36.5 ??C) (!) 137 14 132/71 10/19/22 1950 -- (!) 116 17 -- 10/19/22 1945 -- (!) 125 16 -- 10/19/22 1930 -- (!) 113 25 -- 10/19/22 1915 -- (!) 116 25 -- 10/19/22 1900 -- (!) 131 14 137/97 10/19/22 1845 -- (!) 110 (!) 0 -- 10/19/22 1830 -- (!) 113 17 -- 10/19/22 1815 -- (!) 121 26 -- 10/19/22 1800 [...] 110 23 -- Recent Labs Component Name 10/20/2230110/19/22 0806/15/22 0757 NA 138 139 138 CL 108* 108* 107 CO2 21* 21* 23 BUN 6* 13 12 CREATININE 0.50* 0.84 0.74 CALCIUM 8.2* 8.9 8.9 Recent Labs Component Name 10/20/2230110/19/22 0806/15/22 0757 WBC 19.5* 10.9* 9.6 RBC 3.83 4.73 4.60 HGB 11.9* 14.4 14.1 HCT 35.4 42.6 42.5 Recent Labs Component Name 10/20/2230106/15/22 0757 CHOL 173 204* TRIG 201* 251* HDL 42 37* LDLCALC 91 117* No results for input(s): HGBA1C, A1C, GKFQEXSGJ6M, EAG in the last 52397 hours. Recent Labs Component Name 10/20/2230110/19/22 0806/15/22 0757 PLTCOUNT 292 342 358 documented in this encounter Procedure Notes * Isacc Lizama MD - 11/05/2022 12:54 PM CDTProcedure(s): DC CATH BLADDER SIMPLE TEMP Pre-Procedure Diagnose(s): Urinary [...] the meatus 3 separate times. A 14 Georgian silicone puentes catheter was covered with sterile [...] catheter. Please reference table below. Level Puentes Griggs Sample Patient 1 Teaching Puentes (i.e. Medical student, Tech, RN) - Female without urologic history 2 Registered Nurse, Any Physician, Any Advanced Practitioner - Male >65 yo 3 Charge or Experienced Nurse, Urology COMBINE MECHANIC, Urologist - Multiple failed attempts 4 Urologist [...] completion, the catheter was connected to the hand inserter operator and calibrated. Appropriate waveform and blood pressure [...] file Occupational History ??? 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 Smoking status: [...] Stress: No Stress Concern Present (10/19/2022) [place] [facility] [employer]ational Health - Occupational Stress Questionnaire [...] Subcutaneous, Once Labs: Recent Labs Component Name 11/15/22 0212 11/14/22 0239 11/13/22 0210 WBC 5.5 4.7 2.7* HGB 10.0* 9.9* 9.8* HCT 32.6* 32.8* 30.8* PLTCOUNT 404* 364 334 Recent Labs Component Name 11/15/22 0212 06/15/22 0757 12/09/18 0812 SODIUM - - [...] answer any further questions. Jean Perry MD [facility] Dermatology Resident, PGY-4 Associated attestation - Jovany Lindsay MD - 11/15/2022 9:24 PM CDT Attending Physician Supervisory Note I have seen and examined the patient with the resident and I agree with the findings and plan of care as documented by the resident. Date of Service : 11/15/2022 Jovany Lindsay MD Professor Department of Dermatology [facility] * Jean Perry MD - 11/14/2022 5:00 [...] Occupational History ??? 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 Smoking status: [...] Stress: No Stress Concern Present (10/19/2022) [place] [facility] [employer]ational [employer] - Occupational Stress Questionnaire [...] will continue to follow. Jean Perry MD [facility] Dermatology Resident, PGY-4 Associated attestation - Jovany Lindsay MD - 11/15/2022 9:45 PM CDT Attending Physician Supervisory Note Discussed with resident, pt is improving. Pt was not seen by me. Jovany Lindsay MD Professor Department of Dermatology [facility] * Alhaji Otoole MD - 11/14/2022 7:57 AM CDTAssociated Order(s): IP CONSULT TO HEMATOLOGY [facility] Hematology/ Oncology CONSULT NOTE Admission Date: 10/19/2022 [...] file Occupational History ??? 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 Smoking status: [...] Stress: No Stress Concern Present (10/19/2022) [place] [facility] Occupational Health - Occupational Stress Questionnaire [...] Allergen Reactions ??? Latex Rash 02/07/2012 Contacted uLrdes in OR scheduling and advised of allergy [...] results for input(s): TROPONINI in the last 33600 hours. Amylase/Lipase: No results for input(s): CHELI in the last 92569 hours. Recent Labs Component Name 07/07/13 2319 [...] Palacios MD - 11/12/2022 5:45 PM CDT [facility] INTERNAL MEDICINE CONSULT NOTE Admission Date: 10/19/2022 [...] LFTs mildly elevated in hepatocellular pattern, rising 11/12 to 266/220 (alt, ast respectively) for this [...] RUQ pain. 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 Past Medical History: Current Past Medical [...] History ??? 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 Smoking status: [...] Stress: No Stress Concern Present (10/19/2022) [place] [facility] [employer]ational Health - Occupational Stress Questionnaire [...] results for input(s): TROPONINI in the last 43749 hours. Amylase/Lipase: No results for input(s): CHELI in the last 04018 hours. Recent Labs Component Name 07/07/13 2319 [...] Medicine 11/12/2022 6:14 PM * Gisselle Jean Baptitse - 11/12/2022 2:12 PM CDT Images from [...] Familyhistories. CURRENT MEDS: ??? *Hold/Avoid Medication Other 0800 and 1999 ??? 0.9% NaCl 10-40 mL [...] eyes, follows commands. Doesn't move left extremities. Puentes present IV access site clean PERTINENT LABS [...] See their attestation for further recommendations. Gisselle Jean Baptiste Internal Medicine, MS4 11/12/2022 Associated attestation - [...] file Occupational History ??? 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 Smoking status: [...] Stress: No Stress Concern Present (10/19/2022) [place] [facility] [employer] - Occupational Stress Questionnaire [...] will continue to follow. Tim Rios MD [facility] Dermatology Resident, PGY-2 Associated attestation - Jovany Lindsay MD - 11/15/2022 9:43 PM CDT Attending Physician Supervisory Note I have examined the patient's photo with the resident and I agree with the findings and plan of care as documented by the resident. Date of Service : 11/12/2022 Jovany Lindsay MD Professor Department of Dermatology [facility] * Emir Rooney PA-C - 11/10/2022 12:47 [...] obesity, GERD, HTN who previously presented to [facility] w/ complaints of acute onset of left [...] alert Laboratory findings: Recent Labs Component Name 11/10/22 0224 11/08/22 2346 11/07/22 2234 10/27/22 2029 10/27/22 0054 10/23/22 0129 10/22/22 0153 WBC [...] displayed. Recent Labs Component Name 11/10/22 0223 11/09/22 0237 11/08/22 0254 INR 1.8 1.6 1.6 Recent Labs Component Name 11/10/22 0223 11/08/22 2346 11/07/22 2234 NA 136 141 141 GLUCOSE [...] chest. > Dictated by Tim Major MD (residential sales). Alexx Ornelas have personally reviewed and interpreted this examination/study. > Interpreting Provider: Alexx Lopez on 11/07/2022 10:30 PM XR ABDOMEN KUB PORTABLE Result Date: 11/06/2022 IMPRESSION: Non-obstructive bowel gas pattern. Report dictated by Mc Castro MD, (residential sales). Pepe Ornelas MD have personally reviewed and [...] at ~1230. Emir Rooney PA-C Interventional Radiology [phone] Associated attestation - César Rain MD - [...] the same conclusion. César Rain MD, DABR Business Assistant, [facility]. Vascular and Interventional Radiologist Minimally Invasive Specialist Endovascular interventions for Peripheral Arterial Disease ( PAD) / DVT/ Varicose veins and Pulmonary Embolism Endovascular interventions for Dialysis access Prostate Artery Embolization for BPH in men Uterine Fibroid Embolization for Uterine fibroids in Women For Outpatient/ inpatient appointments : For referrals to VIR: Ambulatory Referral to Interventional Radiology ([id number]) [facility] Coordinator: [phone] [place] Inpatient consults: COMBINE MECHANIC Ascom [phone] [facility] Hospital Coordinators : [phone] [facility] Inpatient consults:[phone] For Hospital to Hospital VIR Transfers * [...] chest. > Dictated by Tim Major MD (residential sales). I, Alexx Lopez have personally reviewed and interpreted this examination/study. > Interpreting Provider: Alexx Lopez on 11/07/2022 10:30 PM XR ABDOMEN KUB PORTABLE Result Date: 11/06/2022 IMPRESSION: Non-obstructive bowel gas pattern. Report dictated by Mc Castro MD, (residential sales). I, Pepe Gonzalez MD have personally reviewed [...] this interval not displayed. Imaging: MRI BRAIN O CONTRAST Result Date: 11/10/2022 IMPRESSION: 1. Redemonstration [...] chest. > Dictated by Tim Major MD (residential sales). I, Alexx Lopez have personally reviewed and [...] from the original note were not included. [facility] Division of Urologic Surgery New Consult Note [...] status: Occupational History ??? 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 Smoking status: [...] Stroke assessment completed 10/19. Maru Mcduffie RN [phone] Care Coordination Nurse Product Development Director * Cass Gomez APRN-ASHOK - 10/30/2022 8:17 AM CDTAssociated Order(s): IP [...] s/p tenecteplase and thrombectomy (10/19/2022), right sided fzvyhj-tbfpkc-aqmvqwen decompressive sonya-craniectomy for refractory ICP (10/20/2022) and [...] 0017 10/29/22 0214 10/29/22 0010 10/28/22 0125 10/27/22202810/27/22 0608 10/27/22 0054 10/26/22 0426 10/26/22 0002 [...] report is dictated by Kayla Stevenson MD (residential sales) 1 I, Lonnie Rae MD have personally [...] report is dictated by Miranda Bowen MD (residential sales) Oriana Ornelas MD have personally reviewed and [...] verification. > Dictated by Clarisa Cantrell MD (residential sales). Alexx Ornelas have personally reviewed and interpreted [...] report is dictated by Miranda Bowen MD (residential sales) Joni Ornelas MD have personally reviewed and [...] right lateral ventricle, and approximately 3-4 mm lrtwk-hg-hruo midline shift, grossly similar to the prior. [...] verification. Report dictated by Tim Major MD (residential sales). I, Jasper Sifuentes MD have personally reviewed [...] 10:11 AM CDTAssociated Order(s): IP CONSULT TO HAND BUTTON SPLITTER Social Work Consult Note Consult acknowledged Chart reviewed Reason for Consult: SW consulted by Bulmaro Ochoa RN for Patient Admission in facility Comments: Patient is tentatively scheduled for OR 10/30 for right femoral cutdown, thrombectomy, angiogram with possible intervention, possible vein harvest. Patient will need updated therapy orders and notes following surgery. Patient is an [employer] employee w/ [employer] insurance. [facility] [employer] [facility] Wax Engraver Becky is following for disposition needs Discharge Plan: Post acute recommendation: Undetermined or Intense 3 hour per day multidisciplinary inpatient therapies Discharge Facility Information: [facility] Anticipated Discharge Date: 11/03/22 Payer/Plan Subscriber Name Rel Member # Group # [employer] - [facility] WELL* CONSUELO DARBY Juma [id number] [address] [address] Emergency Contacts: Extended Emergency Contact Information Primary Emergency Contact: Hi Darby Address: [address] [place] [address] [place] [address] [facility] Relation: Spouse Secondary Emergency Contact: Sandra Disla [employer] Mobile Relation: Mother Thank you for the referral, JAYLENE Holcomb MBA [facility] 10/28/2022 10:12 AM * Jovana Armstrong [...] occlusion of the R EIA + proximal BUSINESS INFORMATION ANALYST extending into the profunda with reconstitution identified [...] History ??? 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 Smoking status: [...] 10/22/22152 WBC 16.1* 16.6* 17.4* - - HGB [...] report is dictated by Miranda Bowen MD (residential sales) Oriana Ornelas MD have personally reviewed and [...] verification. > Dictated by Clarisa Cantrell MD (residential sales). I, Alexx Lopez have personally reviewed and interpreted this examination/study. > Interpreting Provider: Alexx Lopez on 10/25/2022 4:16 PM Vascular Surgery High Risk Variables: Cardiac Arrhythmia: no Malnutrition: no Cardiomyopathy: no Chronic Kidney Disease: no Dementia: no Fluid & Electrolyte Disorders: no Respiratory Failure: no Shock: no Cachexia: no Coagulation Defect: [id number]-gci gtt Jovana Armstrong MD PGY-6 Vascular Surgery Fellow 10/26/22 12:25 PM * Hodan Oliveira RN - 10/25/2022 11:08 AM CDTAssociated Order(s): IP CONSULT TO SHIP DESIGN TEACHER I have been consulted due to the possibility or diagnosis of stroke, chart reviewed. Patient Name: Consuelo Darby Arrival: Start: Start (10/19/22819) EMS Activated Code Stroke: Yes Arrival Mode: EMS Arrival Service(document name here): [place] 1342 (10/19/22 08) EMS Glucose Bedside (mg/dL): 141 mg/dL (10/19/22 08) EMS BP: 136/84 (10/19/22 08) Last Known Well: Last known to be well Last known well - Date: 10/19/22 (10/19/22 1050) Last known well - Time: 06 (10/19/22 1050) Initial NIHSS Score: NIH Total: [...] based on HgBA1c: Diabetic I) HGBA1C >6.5 It Intern has been consulted per protocol to [...] right lateral ventricle, and approximately 3-4 mm lnnsd-ke-gxlx midline shift, grossly similar to the prior. [...] verification. Report dictated by Tim Major MD (residential sales). I, Jasper Sifuentes MD have personally reviewed [...] The report is dictated by Miranda Bowen MD(residential sales) Jasper Ornelas MD have personally reviewed and [...] hemorrhage. Report dictated by Lorenzo Horta MD (residential sales). Lonnie Ornelas MD have personally reviewed and [...] prior. > Dictated by Bassam Jovel M.D. (residential sales) Gonzalez Ornelas MD have personally reviewed and [...] Darby. Hodan Oliveira RN, BSN Stroke Navigator, [facility] Ascom: [phone] Email: [email or web address] * Ernestine Almanza DMD - 10/24/2022 8:34 [...] Race: White/ Ethnicity: Not or Origin Languages Mongolian [facility] [place] [facility] [address] Employer: [employer] CSN: [id number] [facility]: [id number] E#: [id number] Contact Information [phone] (Home Phone) [phone] (Work Phone) Alternate Environmental Director ?? +1 more?? Hi Darby (Spouse) [phone] (Home Phone) Unit: [facility] 3N ICU Bed: 309 / 01 Current location: [facility] MRI * Liam Parks MD - 10/24/2022 1:06 PM CDT [facility] Infectious Diseases Consultation Patient Name: Consuelo Darby 1980 Room: 309[facility] Date of Admission: 10/19/2022 Date of Service: [...] or tick bites. She lives with in [place], [place]. 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 They recently went to a trip to [place] for vacation, she bathed in the sea [...] TUMOR/POLYP/LESION (ANY METHOD) Social History As per [facility] Social History Socioeconomic History ??? Marital status: Spouse name: Not on file ??? Number of children: Not on file ??? Years of education: Not on file ??? Highest education level: Not on file Occupational History ??? 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 Smoking status: [...] Stress: No Stress Concern Present (10/19/2022) [employer] [place] [facility] [employer] [facility] - Occupational Stress Questionnaire [...] History Current Antibiotics None Prior Antibiotics At [facility] Cefazolin 10/20 Vancomycin 10/20 Home Medications Prior to Admission medications Medication Sig Start Date End Date Taking? Authorizing Provider amitriptyline (Elavil) 50 MG tablet Take 2 (two) tablets by mouth at bedtime 08/17/22 Provider, MD Armand Cetirizine HCl (ZYRTEC PO) Take 10 mg [...] mg by mouth daily before breakfast Armand Jacinto MD verapamil SR 24hr (Verelan) 120 MG capsule Take 1 (one) capsule by mouth at bedtime 10/17/22 Armand Jacinto MD Vitamin D3, cholecalciferol, 50 MCG (1999) tablet Take 2,000 Units by mouth once daily Armand Jacinto MD Inpatient Medications ??? *Hold/Avoid Medication Other DIRECTED ??? *Hold/Avoid Medication Other 08 and 1999 ??? 0.9% NaCl 3 mL [...] 199 - BMP: Recent Labs Component Name 10/23/22202810/23/2212810/21/22 2316 10/20/22 0302 10/19/22 0824 06/15/22 0757 NA 140 140 142 - 139 [...] 0.56 mg/dL). LFTs: Recent Labs Component Name 10/19/22 0824 [...] Liam Parks MD (PGY-[id number]) Infectious Diseases Fellow [facility] Pager: [phone] ID Clinic Associated attestation - Arturo Delacruz [...] coordination of care. 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 Smoking status: [...] Team: Yvan Booth MD as PCP - Jean Monson MD as PCP - Jaden Garcia DO [...] CTAB. CARDIOVASCULAR: Regular rhythm, crisp S1/S2. No NICKY. ABDOMEN: S/ND/NT. SKIN/NAILS: hemicraniectomy scar present. PSYCH: Alert, appropriately interactive. NEURO: Couldn't assess as she was intubated. Good hand intellectual property counsel bilaterally. MSK: No synovitis, dactylitis, or enthesitis. [...] Range INR 0.9 0.9 - 1.2 Device [id number] Rigging Engineer ID [id number] EKG 12-LEAD Result Value Ref Range Ventricular Rate 129 BPM Atrial Rate 129 BPM P-R Interval 134 ms QRS Duration ms 90 ms Q-T Interval ms 318 ms QTC Calculation (Bezet) 465 ms Calculated P [place] 55 degrees Calculated R [place] 13 degrees Calculated T [place] 5 degrees Interpretation EKG SINUS TACHYCARDIA OTHERWISE NORMAL ECG NO PREVIOUS ECGS AVAILABLE Confirmed by FLORA OTT MD ([id number]) on 10/19/2022 5:38:23 PM CBC W AUTO [...] by CKD-EPI >90 >=90 mL/min/1.73 m2 PT-INR [facility] Result Value Ref Range PT 12.3 12.1 [...] BUBBLE STUDY Result Value Ref Range BSA 2.8028793 m2 LV biplane EF 64 54 - [...] Age Predicted HR 181 Target HR 154 FNHAC1WH 6.054 cm [id number] 5.318 cm LEFT VENTRICLE STROKE VOLUME BIPLANE [...] Dr. Jasso. Josue Castellanos MD Rheumatology Fellow [facility] [employer] Associated attestation - Gonzalez Jasso MD - [...] Rheumatology Fellowship Program Department of Internal Medicine [facility] * Jaden Ordaz, DIRECTOR OF REVENUE-BISQUE GRADER - 10/23/2022 3:23 PM CDTAssociated Order(s): IP CONSULT TO CARD SURGERY - CARDIAC TEAM CARDIAC SURGERY Consult H&P Patient Name: Consuelo Darby : 1980 Private City Council Member: Dr. Stuart PCP: Yvan Booth MD Referring Facility: [facility] Subjective: Consuelo Darby is a 41 year old [...] CBC: Recent Labs Component Name 10/23/22 0129 10/21/22231510/21/22 0753 10/21/22 0459 WBC 16.7* 18.4* 18.6* [...] 143* 179* 180* O2SAT 99 99 99 TAP2DYY 19.2* 18.1* 20.3 ECHO: TTE- Left??Ventricle: Left [...] risk for additional thrombotic event, agree with he jodie gtt per primary service. The patient will be staffed with Dr. Anne and final recommendations to follow. Jaden Ordaz APRN-BISQUE GRADER 10/23/2022 3:25 PM Associated attestation - Mahad [...] see . Consuelo Darby in consultation at [facility] on 10/23/2022 for evaluation of vegetation that [...] propofol, 0-50 mcg/kg/min, Last Rate: Stopped (10/23/22 1303) REVIEW OF SYSTEMS: Review of Systems: Complete ROS not completed as patient was sedated and intubated at the time of encounter PHYSICAL EXAM: General appearance: sedated and intubated HEENT: [place] noted in the scalp Neck: The thyroid [...] 10/21/22231510/21/22 0753 WBC 16.7* - 18.4* 18.6* HGB [...] results for input(s): MG in the last 67080 hours. Recent Labs Component Name 10/23/22 0129 10/21/22 23110/21/22 0459 PHOS 3.4 2.7* 2.2* Hepatic Panel: [...] bacterial vegetation (aortic side). Differential also includes hew-ohqzhqgpz-srdrqgoqgz-endocarditis (NBTE)/ Libman- Sachs vegetation. Follow up work [...] Units Date/Time GLUCOSE - POINT OF CARE [[id number]] Collected: 10/22/22 0858 Order Status: Completed Specimen: Blood Updated: 10/22/22 0859 Glucose WB/POC 109 mg/dL Specimen Type Cap Fingerstick PLATELET COUNT AUTO CITRATED BLOOD [[id number]] (Normal) Collected: 10/22/22 015 Order Status: Completed Specimen: Blood Updated: 10/22/22 0221 Platelet Count Citrated Blood 199 10??3/uL CBC W AUTO DIFFERENTIAL [[id number]] (Abnormal) Collected: 10/21/222315 Order Status: Completed Specimen: Blood Updated: 10/22/22 [...] % Immature Granulocytes Absolute 0.13 MAGNESIUM BLOOD [[id number]] (Normal) Collected: 10/21/222315 Order Status: Completed Specimen: Blood Updated: 10/21/22 2351 Magnesium 2.2 mg/dL PHOSPHORUS BLOOD [[id number]] (Abnormal) Collected: 10/21/222315 Order Status: Completed Specimen: Blood Updated: 10/21/22 235 Phosphorus 2.7 mg/dL BASIC METABOLIC PANEL (CALCIUM TOTAL) [[id number]] (Abnormal) Collected: 10/21/222315 Order Status: Completed Specimen: Blood Updated: 10/21/222350 BUN 16 mg/dL Creatinine 0.65 mg/dL Sodium 142 mmol/L Potassium 3.7 mmol/L Chloride 111 mmol/L CO2 20 mmol/L Glucose 120 mg/dL Calcium 8.0 mg/dL Anion Gap 15 BUN/Creatinine Ratio 25 Osmolality Calculated 296 mOsm/kg eGFR by CKD-EPI >90 mL/min/1.73 m2 GLUCOSE - POINT OF CARE [[id number]] (Abnormal) Collected: 10/21/222317 Order Status: Completed Specimen: Blood Updated: 10/21/222322 Glucose WB/POC 171 mg/dL Specimen Type Venous PROTEIN S ACTIVITY [[id number]] (Abnormal) Collected: 10/20/22301 Order Status: Completed Specimen: Blood Updated: 10/21/222308 Protein S Activity 134 % Comment: INTERPRETIVE [...] reference intervals for this test in the [employer] Test Directory (IngBoo). Performed By: [facility] [address] [place] [address] Film Spooler: Boo Bond MD, PhD CLIA Number: [id number] PROTEIN C ACTIVITY [[id number]] Collected: 10/20/22301 Order Status: Completed Specimen: Blood [...] reference intervals for this test in the [employer] Test Directory (IngBoo). Performed By: [facility] [address] [place] [address] Film Spooler: Boo Bond MD, PhD CLIA Number: [id number] GLUCOSE - POINT OF CARE [[id number]] (Abnormal) Collected: 10/21/221842 Order Status: Completed Specimen: Blood Updated: 10/21/22 184 Glucose WB/POC 129 mg/dL Specimen Type Cap Fingerstick GLUCOSE - POINT OF CARE [[id number]] (Abnormal) Collected: 10/21/22 1210 Order Status: Completed [...] at bedside Radames Hinkle MD Neurology Resident. [facility]. 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 On daily Senna. Labs reviewed, noted elevated [...] Other (Comment) (has not been assessed by MULTI SITE LEASING CONSULTANT) Pain affectingintake: No Estimated Needs: KCAL: 1309-4400 (20-25kcal/kg IBW) Protein (g): >110 (>2g/kg IBW) [...] Component Value Units Date/Time HGB HCT PANEL [[id number]] Updated: 10/20/22 1512 Order Status: Sent Specimen: Blood HEMOGLOBIN A1C [[id number]] (Abnormal) Collected: 10/20/22 1015 Order Status: Completed [...] to evaluate metabolic control in patients. Reference: [place] [employer], Standards of Care in Diabetes -2020 In patients 70 years and older consider HbA1c target range of 7.0-7.5% (Reference: Ronal David et al. JAMDA. 2012) The Sebia assay for the measurement of HbA1c is a National Glycohemoglobin Standardization Program (NGSP) certified method. GLUCOSE - POINT OF CARE [[id number]] (Abnormal) Collected: 10/20/22 113 Order Status: Completed Specimen: Blood Updated: 10/20/22 114 Glucose WB/POC 124 mg/dL Specimen Type Cap Fingerstick LUPUS ANTICOAGULANT PANEL [[id number]] Collected: 10/20/22 0302 Order Status: Completed Specimen: Blood Updated: 10/20/221134 [...] of APAS. GLUCOSE - POINT OF CARE [[id number]] (Abnormal) Collected: 10/20/22743 Order Status: Completed Specimen: Blood Updated: 10/20/22753 Glucose WB/POC 32 mg/dL Specimen Type Cap Fingerstick GLUCOSE - POINT OF CARE [[id number]] (Abnormal) Collected: 10/20/22746 Order Status: Completed Specimen: Blood Updated: 10/20/22753 Glucose WB/POC 118 mg/dL Specimen Type Cap Fingerstick BASIC METABOLIC PANEL (CALCIUM TOTAL) [[id number]] (Abnormal) Collected: 10/20/22301 Order Status: Completed Specimen: Blood Updated: 10/20/22335 BUN 6 mg/dL Creatinine 0.50 mg/dL Sodium 138 mmol/L Potassium 3.6 mmol/L Chloride 108 mmol/L CO2 21 mmol/L Glucose 140 mg/dL Calcium 8.2 mg/dL Anion Gap 13 BUN/Creatinine Ratio 12 Osmolality Calculated 286 mOsm/kg eGFR by CKD-EPI >90 mL/min/1.73 m2 LIPID PROFILE [[id number]] (Abnormal) Collected: 10/20/22301 Order Status: Completed Specimen: [...] >500 mg/dL: Very High CBC W/O DIFFERENTIAL [[id number]] (Abnormal) Collected: 10/20/22301 Order Status: Completed Specimen: Blood Updated: 10/20/22 0330 WBC 19.5 10??3/uL RBC 3.83 10??6/uL Hemoglobin 11.9 g/dL Hematocrit 35.4 % MCV 92.4 fL MCH 31.1 pg MCHC 33.6 g/dL RDW-SD 45.7 fL RDW-CV 13.5 % Platelet Count 292 10??3/uL MPV 9.9 fL nRBC Absolute 0.00 10??3/uL nRBC Auto 0.0 /100 WBC PROTEIN S ACTIVITY [[id number]] Collected: 10/20/22301 Order Status: Sent Specimen: Blood Updated: 10/20/22308 PROTEIN C ACTIVITY [[id number]] Collected: 10/20/22301 Order Status: Sent Specimen: Blood Updated: 10/20/22308 GLUCOSE - POINT OF CARE [[id number]] (Abnormal) Collected: 10/19/221949 Order Status: Completed Specimen: [...] at bedside Radames Hinkle MD Neurology Resident. [facility]. Associated attestation - Dary Garvey MD - [...] workup/prevention per stroke team NSGY consulted for [facility] watch Repeat CTH if exam change [...] Darby :1980 Date of Admission:10/19/2022 Date of Consult:32:24 PM Time images reviewed: 2:30 PM Time [...] IP CONSULT TO PHYSICAL MED AND REHAB [facility] Rehab has initiated an evaluation per stroke protocol. Will continue to follow for medical stability and tolerance/participation in therapies. Thank you for the referral. Elida Yancey RN, BSN Clinical Liaison [facility] [phone] * Stacy Lopez RD/OMAIRA - 10/20/2022 8:48 [...] Elevated TG, no A1c in EMR. 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 Assessment: Med/Surg History and Clinical Diagnoses: 41yo [...] Other (Comment) (has not been assessed by MULTI SITE LEASING CONSULTANT) Pain affectingintake: No Estimated Needs: KCAL: 1650 (30kcal/kg of IBW) Protein (g): 55-66 (1.0-1.2gm/kg of IBW) Fluid (ml): 1 ml/kcal Needs based on: Kcal/kg- (Comment) (55kcal/kg of IBW) Recommended Access Route: PO Laboratory values: Recent Labs Component Name 10/20/22 0302 10/19/22 0824 10/19/22 0808 06/15/22 0757 12/09/18 0812 07/25/18205503/01/16 0817 BUN 6* 13 - 12 10 7 [...] - 13 12 11 10 BCR 12 15 - 16 - - - OSMOLALITY 286 [...] Nutrition Goal Progress: New goal established Ascom 6232 * Radames Hinkle MD - 10/19/2022 3:48 [...] pushes. Patient needs to lay flat so MULTI SITE LEASING CONSULTANT swallow assessment not possible for the time [...] Value Units Date/Time URINE DRUG SCREEN IMMUNOASSAY [[id number]] (Normal) Collected: 10/19/221409 Order Status: Completed Specimen: Urine Updated: 10/19/221447 Amphetamines Screen Urine Negative Barbiturates Screen Urine Negative Benzodiazepine Screen Urine Negative Opiates Urine Negative Cocaine Metabolites Urine Negative Phencyclidine Screen Urine Negative Cannabinoids Screen Urine Negative Methadone Screen Urine Negative Fentanyl Screen Urine Negative Narrative: The Urine Toxicology Screening Panel does not screen for Propoxyphene, Meprobamate, Carisoprodol, Trazodone, ficp-hxm-ulbrixa medications and/or volatiles (Acetone, Isopropanol, Methanol or Ethylene Glycol). Ethanol, Salicylate, Acetaminophen, Tricyclic Antidepressants and several therapeutic drugsmay be individually assayed in serum or plasma specimen. Toxicology testing by the [facility] is an aid to medical diagnosisand treatment of patients. No documented chain of custody was maintained. Results are intended to be used for clinical purposes only. HCG URINE QUALITATIVE [[id number]] (Normal) Collected: 10/19/221409 Order Status: Completed Specimen: Urine Updated: 10/19/221428 Test Urine Negative PT-INR [facility] [[id number]] (Normal) Collected: 10/19/22 08 Order Status: Completed Specimen: Blood Updated: 10/19/22903 PT 12.3 Seconds INR 0.9 Comment: The suggested therapeutic range for standard coumadin (warfarin) therapy is an INR of 2.0-3.0. For high-risk patients (Mechanical Mitral Valve Prosthesis, etc.), the suggested prophylactic therapeutic range is an INR of 2.5-3.5. TROPONIN-I HIGH SENSITIVE BASELINE + 1HR [[id number]] Order Status: Sent Specimen: Blood HEMOGLOBIN A1C [[id number]] Order Status: Sent Specimen: Blood COMPREHENSIVE METABOLIC PANEL [[id number]] (Abnormal) Collected: 10/19/22823 Order Status: Completed Specimen: [...] >90 mL/min/1.73 m2 CBC W AUTO DIFFERENTIAL [[id number]] (Abnormal) Collected: 10/19/22823 Order Status: Completed Specimen: Blood Updated: 10/19/22838 WBC 10.9 10??3/uL RBC 4.73 10??6/uL Hemoglobin [...] Immature Granulocytes Absolute 0.04 HCG URINE QUALITATIVE [[id number]] Order Status: Canceled Specimen: Urine CREATININE - POCT INTERFACED [[id number]] (Normal) Collected: 10/19/22807 Order Status: Completed Specimen: Blood Updated: 10/19/22817 Creatinine POCT 0.78 mg/dL eGFR >90 mL/min/1.73 m2 GLUCOSE - POINT OF CARE [[id number]] Collected: 10/19/22 0756 Order Status: Completed Specimen: Blood Updated: 10/19/22 08 Glucose WB/POC 105 mg/dL Specimen Type Cap [...] as patient needs to lie flat and MULTI SITE LEASING CONSULTANT cannot evaluate. Cardiovascular Pulse Min: 94 Max: 130, BP Min: 120/73 Max: 174/91 Hx Hypertension - On Metoprolol 25 mg BID at home - Holding as patient needs to lie flat and MULTI SITE LEASING CONSULTANT cannot evaluate. Strict BP goal of SBP<140 [...] Protonix 40 mg home medication ordered. - MULTI SITE LEASING CONSULTANT swallow evaluation: pending - Diet:pending MULTI SITE LEASING CONSULTANT swallow eval. IVF ordered till tomorrow afternoon [...] Feeds/Fluids: NaCL continuous infusion until evaluation by MULTI SITE LEASING CONSULTANT Analgesia: tylenol IV for back pain Sedation: [...] at bedside Radames Hinkle MD Neurology Resident. [facility]. 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 Patient is not medically ready to transition to next level of care Post acute recommendation: Undetermined; pending skilled therapy evaluations Insurance authorization is required Payer/Plan Subscriber Name Rel Member # Group # [employer]* CONSUELO DARBY [id number] [address] [address] Please refer to Nurse Product Development Director's Stroke Psychosocial Assessment note for additional information SW will continue to follow for disposition needs as appropriate Thank you for the referral, JAYLENE Holcomb, HUMERA [facility] 10/19/2022 12:19 PM documented in this [...] procedure and its findings. Royer Stovall MD Refractory Furnace Designer 11/15/22 1:09 PM I , , was [...] 174 Gastric Flush Amount 100 ML 11/10/22 08 Gastric Flush Type Water 11/10/22 08 Output Amount (mL) 0 ML 11/08/22 08 Site Assessment WDL 11/10/22 174 Dressing Type Gauze 11/10/22 174 Dressing Status Clean, Dry, Intact 11/10/22 08 Site Care Cleansed 11/10/22 174 Graduated Cylinder Change Date 11/09/22 11/10/22 174 Tube Feed Syringe Change Date 11/09/22 11/10/22 174 Specimen(s): * No specimens in log * [...] at the conclusion of the case. Dr. Bright was present for all portions of the procedure. EBL: minimal blood loss Urine Output : 200 uop IV Fluid Intake: 250 mL crystalloid Drains: Enteral - Percutaneous Endoscopic Gastrostomy Abdomen;Left;Upper (Active) Surrounding Skin Dry;Intact 11/10/22 08 Tube Status Infusing 11/10/22 174 Gastric Output Amount (mL) 20 ML 11/10/22 0800 Gastric Output Description None/NA 11/10/22 174 Position verified Auscultation 11/10/221740 Gastric Residual Amount (ML) 20 ML 11/10/22 174 Gastric Flush Amount 100 ML 11/10/22 08 Gastric Flush Type Water 11/10/22 08 Output Amount (mL) 0 ML 11/08/22 08 Site Assessment WDL 11/10/22 174 Dressing Type Gauze 11/10/22 174 Dressing Status Clean, Dry, Intact 11/10/22 08 Site Care Cleansed 11/10/22 174 Graduated Cylinder Change Date 11/09/22 11/10/22 174 Tube Feed Syringe Change Date 11/09/22 11/10/22 174 Specimen(s): * No specimens in log * [...] MD - Primary * Gisselle Florentino MD Liner Roll Changer(s): Rachna Huntley DO Anesthesia Type: general ETT Complications: none Findings: PT and AT signals completed at conclusion of case EBL: 200 mL Urine Output : 500 mL IV Fluid Intake: per anesthesia Drains: Enteral - Nasal/Oral Naso-gastric Nostril/Nare;Left (Active) Output Description None/NA 10/30/22 0800 Tube Status Clamped 10/30/22 0800 Surrounding Skin Dry;Intact 10/30/22 0800 Site Assessment [facility] 10/30/22 0800 Tube Repositioned No 10/30/22 0800 External Tube Length (cm) 64 cm 10/30/22 0600 Position verified Auscultation 10/30/22 0800 Residual Amount (ML) *Excluding Tungsten* 0 ML 10/29/22 1800 Flush Amount 100 ML 10/29/22 2000 Flush Type Water 10/29/22 2000 [REMOVED] Drain 1 Flat Anterior;Left;Upper Head (Removed) Drain Output Amount 20 ml 10/23/22 0400 Status Patent;Device Compressed 10/23/22 1200 Site/Line Assessment [facility] 10/23/22 1200 Dressing Type Not Applicable 10/23/22 1200 Dressing Status Other 10/23/22 1000 Output Description Serosanguinous 10/23/22 1200 [REMOVED] Enteral - Nasal/Oral Naso-gastric Nostril/Nare;Right (Removed) Output Description Yellow;Green;Bile 10/22/22 0600 Tube Status Clamped 10/23/22 0800 Surrounding Skin Dry;Intact 10/23/22 0800 Site Assessment [facility] 10/23/22 0800 Internal Tube Length (cm) 65 cm 10/23/22 0800 Position verified X-Ray ;Stomach contents obtained 10/23/22 0800 Intake (ml) 90 ml 10/22/22 1800 Flush Amount 255 ML 10/23/22 0600 Flush Type Water 10/23/22 0600 [REMOVED] Enteral - Nasal/Oral Naso-gastric Nostril/Nare;Right (Removed) Tube Status Clamped 10/24/22 1000 Surrounding Skin Dry;Intact 10/24/22 1000 Site Assessment [facility] 10/24/22 1000 Internal Tube Length (cm) 65 cm 10/24/22 1000 Position verified Auscultation;Stomach contents obtained 10/24/22 1000 Intake (ml) 200 ml 10/24/22 0800 Flush Amount 295 ML 10/24/22 0600 Flush Type Water 10/24/22 0600 [REMOVED] Enteral - Nasal/Oral Naso-gastric Nostril/Nare;Right (Removed) Tube Status Infusing 10/28/22 220 Surrounding Skin Dry;Intact 10/28/22 220 Site Assessment WDL 10/28/22 220 Tube Repositioned No 10/28/22 220 External Tube Length (cm) 65 cm 10/27/22 [...] Implant Name Type Inv. Item Serial No. Protection Agent Lot No. LRB No. Used Action Patch Cv 6X1Cm Vsgrd Bvn Pricrd Strl Patch Cv 6X1Cm Vsgrd Bvn Pricrd Strl [employer] [id number] Right 1 Implanted Rachna Huntley DO * Operative - Valdez Clay MD - 10/30/2022 11:31 AM CDT Vascular Surgery Operative Note Patient Name: Consuelo Darby Date of Surgery: 10/30/2022 Surgeon: Dr Clay Liner Roll Changer: Rachna Huntley DO; Gisselle Florentino MD Pre-Op [...] better visualization of the vessel. A #5 Aftab was passed proximally and one more small [...] pericardial patch Patient Disposition: to PACU Rachna Huntley DO 10/31/2022 10:59 AM I was present for all portions of this procedure. 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 Stuart Liner Roll Changer(s): Richi Anderson MD Type of anesthesia: Dexmedetomidine and propofol per pump, details in MAR Administered 1% lidocaine orally. Sedation start: 903 Sedation stop: 949 Monitoring: Monitoring consisted of: heart rate, hand inserter operator, continuous pulse oximetry, continuous capnography, frequent blood [...] Implant Name Type Inv. Item Serial No. Protection Agent Lot No. LRB No. Used Action SYNTTHECEL DURA REPAIR [id number] Right 1 Implanted Kamari Mcfarlane MD * Operative - Jazz Marquez MD - 10/20/2022 6:58 PM CDT NAME: Consuelo Darby : 1980 DATE OF OPERATION: 10/20/2022 ATTENDING SURGEON: JAZZ MARQUEZ MD PREOPERATIVE DIAGNOSES: Malignant right MCA infarction POSTOPERATIVE DIAGNOSES: Same PROCEDURES PERFORMED: 1) Right sided ogxxir-qbzrhwx-eqxygpvb decompressive sonya-craniectomy for treatment of refractory intracranial [...] temporal squamous bone were made using the Caterva drill. The eduardo holes was undermined with a straight bone curette. After dissecting the dura carefully using a Red Willow elevator then the craniotome B1 bit with a footplate was used to elevate the bone flap for a standard decompressive sonya-craniectomy. The bone flap was elevated using a Hemet #1 dissector. The dura was adherent to [...] Implant Name Type Inv. Item Serial No. Protection Agent Lot No. LRB No. Used Action Agent Hmst Thrmb Kt Surgiflo 2Ml Agent Hmst Thrmb Kt Surgiflo 2Ml [employer] [id number] Right 1 Implanted SYNTTHECEL DURA REPAIR [id number] Right 1 Implanted [employer] Adhesion Barrier [id number] Right 1 Implanted ATTENDING ATTESTATION: I reviewed the resident's note and agree with the documented findings. I was present for the entireprocedure. Jazz Marquez MD 10/25/2022 5:37 PM * Brief Op Note - Jaime Drew MD - 10/19/2022 10:19 AM CDT IVR Post-Operative/Procedure Progress Note Surgeon: Mitali Walter Liner Roll Changer(s): Isak Monte Pre-Procedure Diagnosis:R MCA M1 occlusion [...] Lynch MD - 10/19/2022 5:42 PM CDT [facility] Emergency Department Emergency Medicine Resident Note History [...] Initial Electrocardiogram Rate: 126 Rhythm: sinus, tachy [place]: Normal Intervals: No DC QRS QT prolongation ST/ T wave: No Christopher/d, no significant ST or T wave abnormalities. No evidence of heart block, arrhythmia, ACS equivalents Impression: sinus tachycardia Imaging: CT ANGIO BRAIN NECK STROKE Final Result PROCEDURE: CT ANGIO BRAIN NECK STROKE, DATE/TIME OF EXAM: 10/19/2022 8:16 AM, LOCATION [facility] INDICATION: Code Stroke ADDITIONAL CLINICAL [...] DATE/TIME OF EXAM: 10/19/2022 8:04 AM, LOCATION [facility] INDICATION: Code Stroke ADDITIONAL CLINICAL [...] not screen for Propoxyphene, Meprobamate, Carisoprodol, Trazodone, qufr-xpi-nufnzrb medications and/or volatiles (Acetone, Isopropanol, Methanol or Ethylene Glycol). Ethanol, Salicylate, Acetaminophen, Tricyclic Antidepressants and several therapeutic drugsmay be individually assayed in serum or plasma specimen. Toxicology testing by the [facility] is an aid to medical diagnosisand [...] or injury. Patient c/o right sided MOREIRA. Preston has had similar symptoms in the past [...] DATE/TIME OF EXAM: 10/19/2022 8:16 AM, LOCATION [facility] INDICATION: Code Stroke ADDITIONAL CLINICAL [...] DATE/TIME OF EXAM: 10/19/2022 8:04 AM, LOCATION [facility] INDICATION: Code Stroke ADDITIONAL CLINICAL [...] 10/19/2022 8:11 AM CDT Salo Darby () [phone] * Bharat Oreilly RN - 10/19/2022 8:02 AM CDT First slice * Jean Nam RN - 10/19/2022 7:53 AM CDT Bed: T04 Expected date: Expected time: Means of arrival: Comments: Code stroke @ 726 documented in this encounter Miscellaneous Notes * Clinical References JOHANA - Hodan Oliveira RN - 10/25/2022 11:31 AM CDT Images from the original note were not included. 52241 Prediabetes You have been diagnosed with prediabetes. [...] being physically active ?? Being ?? Being Somali ?? Being ?? Being ?? Being ?? [...] blurry vision Last Reviewed Date: 2021 ?? [id number] [employer]. All rights reserved. This information is not intended as a substitute for professional medical care. Always follow your healthcare professional's instructions. * Clinical References AVS - Hodan Oliveira RN - 10/25/2022 11:31 AM CDT 09487 Discharge Instructions for Stroke You have a [...] first appeared. Last Reviewed Date: 2021 ?? [id number] [employer]. All rights reserved. This information is not intended as a substitute for professional medical care. Always follow your healthcare professional's instructions.This information has been modified by your health care provider with permission from the publisher. * Clinical References AVS - Hodan Oliveira RN - 10/25/2022 11:25 AM CDT Images from the original note were not included. 04751 Thrombolytic Therapy for Stroke An ischemic stroke [...] thinners (anticoagulants). Also mention if you take yyaw-duf-huscuzp medicines, herbal medicines, or other supplements. ?? [...] dosages of each, in your wallet. Include behq-ljn-fjdhghh medicines, vitamins, and supplements. ?? Write a [...] stroke-like symptoms. Last Reviewed Date: 2021 ?? [id number] [employer]. All rights reserved. This information is not intended as a substitute for professional medical care. Always follow your healthcare professional's instructions. This information has been modified by your health care provider with permission from the publisher. * Clinical References AVS - Hodan Oliveira RN - 10/25/2022 11:25 AM CDT 02552 Understanding Mechanical Thrombectomy for Ischemic Stroke Mechanical [...] Chest pain Last Reviewed Date: 2021 ?? [id number] [employer]. All rights reserved. This information is not intended as a substitute for professional medical care. Always follow your healthcare professional's instructions. * Clinical References AVS - Hodan Oliveira RN - 10/25/2022 11:25 AM CDT Images from the original note were not included. 62005 What Is Ischemic Stroke? The brain needs [...] first appeared. Last Reviewed Date: 2021 ?? [id number] [employer]. All rights reserved. This information is not intended as a substitute for professional medical care. Always follow your healthcare professional's instructions. * Coding Query - Shahbaz Bowen MD - 10/23/2022 6:21 PM CDT DOCUMENTATION CLARIFICATION REQUEST TO: Dr. Bowen FROM: Olga Mcintyre RN, CDS Email: [email or web address] Use the F2 function darden to complete [...] 2:02 AM CDT HEPATIC FUNCTION PANEL Routine 2:02 AM CDT MAGNESIUM BLOOD Routine 11/17/2022 [...] PM CDT HOLD SPECIMEN CSF Routine 11/15/2022 12: 25 PM CDT CULTURE CSF+GRAM STAIN STAT 12:25 PM CDT MENINGITIS ENCEPHALITIS PCR PANEL CSF Routine 11/15/2022 12:25 PM CDT CULTURE CSF+GRAM STAIN STAT 12:25 PM CDT CELL COUNT W DIFFERENTIAL CSF STAT 11/15/2022 12:25 PM CDT PROTEIN CSF STAT 11/15/2022 12:25 PM CDT GLUCOSE CSF STAT 11/15/2022 12:25 PM CDT CULTURE FUNGUS OTHER+FUNGUS SMEAR STAT 11/15/2022 12:17 PM CDT CULTURE AFB+SMEAR STAT 11/15/2022 12: 17 PM CDT FL LUMBAR PUNCTURE Routine 11/15/2022 12 :10 PM CDT Fever, unspecified fever cause EOSINOPHIL URINE SMEAR Routine 9:57 AM CDT PTT [facility] Routine 11/15/2022 2:12 AM CDT PT-INR [facility] AM Draw 11/15/2022 2:12 AM CDT CBC W AUTO DIFFERENTIAL Routine 11/15/2022 2:12 AM CDT BASIC METABOLIC PANEL (CALCIUM TOTAL) Routine 11/15/2022 2:12 AM CDT PHOSPHORUS BLOOD Routine 11/15/2022 2:12 AM CDT HEPATIC FUNCTION PANEL Routine 2:12 AM CDT MAGNESIUM BLOOD Routine 11/15/2022 [...] 2:39 AM CDT HEPATIC FUNCTION PANEL Routine 2:39 AM CDT MAGNESIUM BLOOD Routine 11/14/2022 [...] AM CDT HEPATIC FUNCTION PANEL AM Draw 2:10 AM CDT MAGNESIUM BLOOD Routine 11/13/2022 [...] AM CDT HEPATIC FUNCTION PANEL AM Draw 5:32 AM CDT MAGNESIUM BLOOD Routine 11/12/2022 [...] CDT TYPE + SCREEN PANEL Routine 11/10/2022 1 1:38 PM CDT CBC W AUTO DIFFERENTIAL Routine 11/10/2022 11:38 PM CDT GLUCOSE - POINT OF CARE Routine 11/10/2022 11:28 PM CDT DC ED EGD FLEX TRANSORAL DX 11/10/2022 8:12 PM CDT Acquired gastric wall deformity CBC W AUTO DIFFERENTIAL Routine 11/10/2022 2:24 AM CDT PT-INR [facility] AM Draw 11/10/2022 2:23 AM CDT BASIC METABOLIC PANEL (CALCIUM TOTAL) Routine 11/10/2022 2:23 AM CDT PHOSPHORUS BLOOD Routine 11/10/2022 2:23 AM CDT MAGNESIUM BLOOD Routine 11/10/2022 2:23 AM CDT MRI BRAIN WWO CONTRAST STAT 11:50 PM CDT Fever, unspecified fever cause CT ABDOMEN PELVIS W CONTRAST STAT 11/09/2022 4:47 PM CDT Aortic valve vegetation (HCC) HEPATIC FUNCTION PANEL AM Draw 6:54 AM CDT VANCOMYCIN LEVEL TROUGH Timed 11/09/2022 6:54 AM CDT PT-INR [facility] AM Draw 11/09/2022 2:37 AM CDT CBC W AUTO DIFFERENTIAL Routine 11/08/2022 11:46 PM CDT BASIC METABOLIC PANEL (CALCIUM TOTAL) Routine 11/08/2022 11:46 PM CDT PHOSPHORUS BLOOD Routine 11/08/2022 11:4 6 PM CDT MAGNESIUM BLOOD Routine 11/08/2022 11:46 [...] 10:34 PM CDT PHOSPHORUS BLOOD Routine 11/07/2022 10:3 4 PM CDT MAGNESIUM BLOOD Routine 11/07/2022 10:[address] ANGIO CHEST PULM EMBOLISM STAT 11/07/2022 5:22 PM CDT Fever, unspecified fever cause PT-INR [facility] AM Draw 11/07/2022 3:05 AM CDT PTT [facility] Timed 11/06/2022 11:12 PM CDT CBC W AUTO DIFFERENTIAL Routine 11/06/2022 11:12 PM CDT BASIC METABOLIC PANEL (CALCIUM TOTAL) Routine 11/06/2022 11:12 PM CDT PHOSPHORUS BLOOD Routine 11/06/2022 11:1 2 PM CDT MAGNESIUM BLOOD Routine 11/06/2022 11:12 [...] CDT RESPIRATORY PANEL WITH SARS-COV-2 BY PCR (STL) Routine 11/05/2022 1:10 PM CDT CULTURE URINE Routine 11/05/2022 1:07 PM CDT URINALYSIS REFLEX TO MICROSCOPIC NO CULTURE Routine 11/05/2022 12:54 PM CDT CBC W AUTO DIFFERENTIAL Routine 11/05/2022 12:27 PM CDT BASIC METABOLIC PANEL (CALCIUM TOTAL) Routine 11/05/2022 11:24 AM CDT PHOSPHORUS BLOOD Routine 11/05/2022 11:2 4 AM CDT MAGNESIUM BLOOD Routine 11/05/2022 11:24 [...] CDT CT HEAD WO CONTRAST Routine 11/05/2022 1 2:11 AM CDT Right middle cerebral artery stroke [...] 10:21 PM CDT PHOSPHORUS BLOOD Routine 11/02/2022 10:2 1 PM CDT MAGNESIUM BLOOD Routine 11/02/2022 10:21 [...] stroke (HCC) CT ABDOMEN WO CONTRAST Routine 6:47 PM CDT 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) EGD Routine 2022 2:14 PM CDT [...] 12:03 AM CDT PHOSPHORUS BLOOD Routine 2022 12:0 3 AM CDT MAGNESIUM BLOOD Routine 2022 12:03 [...] 12:22 AM CDT PHOSPHORUS BLOOD Routine 10/31/2022 12:2 2 AM CDT MAGNESIUM BLOOD Routine 10/31/2022 12:22 [...] 1:51 PM CDT ACT LR - POCT ([facility]) Routine 10/30/2022 1:50 PM CDT BLOOD GAS+COOX+LYTES+METAB ARTERIAL POCT Routine 10/30/2022 1:33 PM CDT ACT LR - POCT ([facility]) Routine 10/30/2022 1:32 PM CDT BLOOD GAS+COOX+LYTES+METAB ARTERIAL POCT Routine 10/30/2022 12:59 PM CDT ACT LR - POCT ([facility]) Routine 10/30/2022 12:57 PM CDT TRANSFUSE RED BLOOD CELL LEUKOREDUCED UNIT(S) STAT 10/30/2022 12:57 PM CDT BLOOD GAS ART+LYTES+METAB+COOX POC NOTIF STAT 10/30/2022 12:50 PM CDT Primary hypertension ACT LR - POCT ([facility]) Routine 10/30/2022 12:26 PM CDT PATHOLOGY TISSUE Routine 10/30/2022 12:1 8 PM CDT Ischemia ACT LR - POCT ([facility]) Routine 10/30/2022 12:16 PM CDT ACT LR - POCT ([facility]) Routine 10/30/2022 12:07 PM CDT PREPARE RBC LEUKOREDUCED UNIT Routine 10/30/2022 10:38 AM CDT PTT [facility] Timed 10/30/2022 8:39 AM CDT PTT [facility] Timed 10/30/2022 2:37 AM CDT PT-INR [facility] AM Draw 10/30/2022 2:37 AM CDT DIFFERENTIAL MANUAL Routine 10/30/2022 1 2:17 AM CDT CBC W AUTO DIFFERENTIAL Routine 10/30/2022 12:17 AM CDT BASIC METABOLIC PANEL (CALCIUM TOTAL) Routine 10/30/2022 12:17 AM CDT HCG BETA BLOOD QUANTITATIVE JOSE GUADALUPE 10/30/2022 12:17 AM CDT PHOSPHORUS BLOOD Routine 10/30/2022 12:1 7 AM CDT MAGNESIUM BLOOD Routine 10/30/2022 12:17 AM CDT PTT [facility] Timed 10/29/2022 8:02 PM CDT PTT [facility] Timed 10/29/2022 3:41 PM CDT TYPE + SCREEN PANEL Routine 10/29/2022 1 1:19 AM CDT XR CHEST 1VW PORTABLE STAT 10/29/2022 10:29 AM CDT Hypoxia PTT [facility] Timed 10/29/2022 10:04 AM CDT PTT [facility] Timed 10/29/2022 2:14 AM CDT PT-INR [facility] AM Draw 10/29/2022 2:14 AM CDT DIFFERENTIAL MANUAL Routine 10/29/2022 1 2:10 AM CDT CBC W AUTO DIFFERENTIAL Routine 10/29/2022 12:10 AM CDT BASIC METABOLIC PANEL (CALCIUM TOTAL) Routine 10/29/2022 12:10 AM CDT PHOSPHORUS BLOOD Routine 10/29/2022 12:1 0 AM CDT MAGNESIUM BLOOD Routine 10/29/2022 12:10 [...] 11:58 AM CDT BARTONELLA SPECIES PCR Routine 11:58 AM CDT Q FEVER IGG/IGM AB PANEL RFLX TITER Routine 10/27/2022 11:58 AM CDT MYCOPLASMA PNEUMONIAE AB IGG Routine 10/27/2022 11:58 AM CDT MYCOPLASMA PNEUMONIAE AB IGM Routine 10/27/2022 11:58 AM CDT CHLAMYDIA ANTIBODY IGG/IGM PANEL Routine 10/27/2022 11:58 AM CDT CULTURE BLOOD FUNGUS Timed 10/27/2022 11:58 AM CDT CULTURE BLOOD AFB Routine 10/27/2022 11: 58 AM CDT GLUCOSE - POINT OF CARE [...] 12:54 AM CDT DIFFERENTIAL MANUAL Routine 10/27/2022 1 2:54 AM CDT CBC W AUTO DIFFERENTIAL Routine 10/27/2022 12:54 AM CDT BASIC METABOLIC PANEL (CALCIUM TOTAL) Routine 10/27/2022 12:54 AM CDT PHOSPHORUS BLOOD Routine 10/27/2022 12:5 4 AM CDT MAGNESIUM BLOOD Routine 10/27/2022 12:54 [...] 12:02 AM CDT PHOSPHORUS BLOOD Routine 10/26/2022 12:0 2 AM CDT MAGNESIUM BLOOD Routine 10/26/2022 12:02 AM CDT GLUCOSE - POINT OF CARE Routine 10/25/2022 11:14 PM CDT PTT [facility] Timed 10/25/2022 9:02 PM CDT GLUCOSE - POINT OF CARE Routine 10/25/2022 6:54 PM CDT PTT [facility] Routine 10/25/2022 4:41 PM CDT PT-INR [facility] Routine 10/25/2022 4:[address] CHEST ABDOMEN PELVIS W CONT STAT 10/25/2022 12:55 PM CDT Right middle cerebral artery stroke (HCC) Aortic valve vegetation (HCC) CT HEAD WO CONTRAST STAT 10/25/2022 1 2:55 PM CDT Right middle cerebral artery stroke [...] 12:07 AM CDT PHOSPHORUS BLOOD Routine 10/25/2022 12:0 7 AM CDT MAGNESIUM BLOOD Routine 10/25/2022 12:07 [...] PM CDT MRI BRAIN WWO CONTRAST STAT 10:56 AM CDT Acute cerebrovascular accident (CVA) [...] 11:16 PM CDT PHOSPHORUS BLOOD Routine 10/21/2022 11:1 6 PM CDT MAGNESIUM BLOOD Routine 10/21/2022 11:16 [...] CDT Right middle cerebral artery stroke (HCC) HGB HCT PANEL Routine 10/20/2022 4:40 PM [...] OF CARE Routine 10/19/2022 7:56 AM CDT documented in this encounter Results * VAS [...] 6.0 - 8.3 g/dL 023 3:10 AM [facility] Albumin 2.8(L) 3.4 - 5.0 g/dL 11/17/2022 3:10 AM [facility] Bilirubin Total 0.4 0.2 - 1.2 mg/dL 10/2022 3:10 AM [facility] Bilirubin Conjugated 0.1 0.1 - 0.5 mg/dL 11/17/2022 3:10 AM [facility] Bilirubin Unconjugated 0.3 Unconjugated Bilirubin is a calculated value: Reference ranges have not been established. mg/dL 11/17/2022 3:10 AM [facility] Alkaline Phosphatase 94 40 - 150 U/L 11/17/2022 3:10 AM [facility] ALT 257(H) 5 - 55 U/L 11/17/2022 3:10 AM [facility] AST 138(H) 5 - 34 U/L 11/17/2022 3:10 AM [facility] Albumin/Globulin Ratio 0.7(L) 1.1 - 2.3 11/17/2022 3:10 AM [facility] Blood BLOOD SPECIMEN / Unknown Lab Venipuncture / Unknown 11/17/2022 2:02 AM CDT 11/17/2022 2:40 AM CDT Good Antunez MD LAB - CHEMISTRY [place] BLACKMAN [address] [address], [facility] [phone] * PHOSPHORUS BLOOD (11/17/2022 2:02 AM CDT) Pathologist [facility] Phosphorus 3.6 2.9 - 5.1 mg/dL 11/17/2022 3:10 AM [facility] Blood BLOOD SPECIMEN / Unknown Lab Venipuncture / Unknown 11/17/2022 2:02 AM CDT 11/17/2022 2:40 AM CDT Good Antunez MD LAB - CHEMISTRY [place] BLACKMAN Performing Organization Address City/[facility]/ZIP Co de Phone Number [address] [address], [facility] [phone] * MAGNESIUM BLOOD (11/17/2022 2:02 AM CDT) Pathologist [facility] Magnesium 2.5 1.6 - 2.6 mg/dL 11/17/2022 3:10 AM T [facility] Blood BLOOD SPECIMEN / Unknown Lab Venipuncture / Unknown 11/17/2022 2:02 AM CDT 11/17/2022 2:40 AM CDT Good Antunez MD LAB - CHEMISTRY [place] BLACKMAN Performing Organization Address [facility]/ZIP Co de Phone Number [address] [address], [facility] [phone] * (ABNORMAL) BASIC METABOLIC PANEL (CALCIUM TOTAL) (11/17/2022 2:02 AM CDT) Pathologist [facility] BUN 14 7 - 26 mg/dL 11/17/2022 3:10 AM [facility] Creatinine 0.62 0.56 - 0.96 mg/dL 11/17/2022 3:10 AM [facility] Sodium 138 136 - 145 mmol/L 11/17/2022 3:10 AM [facility] Potassium 4.0 3.5 - 4.5 mmol/L 11/17/2022 3:10 AM [facility] Chloride 99 98 - 107 mmol/L 11/17/2022 3:10 AM [facility] CO2 27 22 - 29 mmol/L 11/17/2022 3:10 AM [facility] Glucose 125(H) 70 - 115 mg/dL 11/17/2022 3:10 AM [facility] Calcium 8.9 8.4 - 10.2 mg/dL 11/17/2022 3:10 AM [facility] Anion Gap 12 6 - 16 11/17/2022 3:10 AM [facility] BUN/Creatinine Ratio 23 7 - 23 11/17/2022 3:10 AM [facility] Osmolality Calculated 288 270 - 300 mOsm/kg 11/17/2022 3:10 AM [facility] eGFR by CKD-EPI >90 >=90 mL/min/1.7 3 m2 11/17/2022 3:10 AM [facility] Blood BLOOD SPECIMEN / Unknown Lab Venipuncture / Unknown 11/17/2022 2:02 AM CDT 11/17/2022 2:40 AM T Good Antunez MD LAB - CHEMISTRY [facility] Organization Address City/State/ZIP Co de Phone Number [facility] [address] [place] [address], [facility] [phone] * (ABNORMAL) CBC W AUTO DIFFERENTIAL (11/17/2022 2:02 AM CDT) WBC 9.4 3.5 - 10.5 10? 3 /uL 11/17/2022 2:58 AM [facility] RBC 3.57(L) 3.80 - 5.20 10? 6 /uL 11/17/2022 2:58 AM [facility] Hemoglobin 10.4(L) 12.0 - 15.6 g/dL 11/17/2022 2:58 AM [facility] Hematocrit 33.4(L) 35.0 - 45.0 % 11/17/2022 2:58 AM [facility] MCV 93.6 80.7 - 98.3 fL 11/17/2022 2:58 AM [facility] MCH 29.1 26.7 - 34.0 pg 11/17/2022 2:58 AM [facility] MCHC 31.1 30.8 - 35.9 g/dL 11/17/2022 2:58 AM [facility] RDW-SD 52.4(H) 36.0 - 50.0 fL 11/17/2022 2:58 AM [facility] RDW-CV 15.9(H) 11.2 - 14.8 % 11/17/2022 2:58 AM [facility] Platelet Count 505(H) 150 - 400 10? 3 /uL 11/17/2022 2:58 AM [facility] MPV 11.0 9.4 - 12.9 fL 11/17/2022 2:58 AM [facility] nRBC Absolute 0.00 0 10? 3 /uL 11/17/2022 2:58 AM [facility] nRBC Auto 0.0 0 /100 WBC 11/17/2022 2:58 AM [facility] Neutrophils % 48.8 35.0 - 70.0 % 11/17/2022 2:58 AM [facility] Lymphocytes % 36.2 20.0 - 43.0 % 11/17/2022 2:58 AM [facility] Monocytes % 10.2 5.0 - 13.0 % 11/17/2022 2:58 AM [facility] Eosinophils % 3.1 0.0 - 6.0 % 11/17/2022 2:58 AM [facility] Basophil % 0.4 0.0 - 2.0 % 11/17/2022 2:58 AM [facility] Neutrophils Absolute 4.59 1.60 - 7.00 10? 3 /uL 11/17/2022 2:58 AM [facility] Lymphocyte Absolute 3.41 1.10 - 3.90 10? 3 /uL 11/17/2022 2:58 AM [facility] Monocytes Absolute 0.96 0.26 - 1.07 10? 3 /uL 11/17/2022 2:58 AM [facility] Eosinophils Absolute 0.29 0.00 - 0.47 10? 3 /uL 11/17/2022 2:58 AM [facility] Basophils Absolute 0.04 0.00 - 0.08 10? 3 /uL 11/17/2022 2:58 AM [facility] Immature Granulocytes % 1.3(H) 0.0 - 1.0 % 11/17/2022 2:58 AM [facility] Immature Granulocytes Absolute 0.12 11/17/2022 2:58 AM T [facility] Blood BLOOD SPECIMEN / Unknown Lab Venipuncture / Unknown 11/17/2022 2:02 AM CDT 11/17/2022 2:39 AM CDT Good Antunez MD LAB - HEMATOLOGY ORD ERABLES Performing Organization Address [facility] Co de Phone Number [address] [address], [facility] [phone] * PTT [facility] (11/17/2022 2:02 AM CDT) APTT 34.4 23.0 - 38.4 Seconds 11/17/2022 3:05 AM [facility] Comment:Suggested therapeuti c range for full dose I.V. unfractionated heparin therapy for venous thromboembolism is 71 to 109 seconds. Blood BLOOD SPECIMEN / Unknown Lab Venipuncture / Unknown 11/17/2022 2:02 AM CDT 11/17/2022 2:39 AM CDT Good Antunez MD LAB - COAGULATION OR DERABLES Performing Organization Address [facility] Co de Phone Number [address] [address], [facility] [phone] * PT-INR [facility] (11/17/2022 2:02 AM CDT) PT 14.4 12.1 - 14.8 Seconds 11/17/2022 3:05 AM [facility] INR 1.1 See Comment 11/17/2022 3:05 AM [facility] Comment:The suggested therap eutic range for standard coumadin (warfarin) therapy is an INR of 2.0-3.0. For high-risk patients (Mechanical Mitral Valve Prosthesis, etc.), the suggested prophylactic therapeutic range is an INR of 2.5-3.5. Blood BLOOD SPECIMEN / Unknown Lab Venipuncture / Unknown 11/17/2022 2:02 AM CDT 11/17/2022 2:39 AM CDT Emir Vail MD LAB - COAGULATION OR DERABLES [place] [id number] [place] [address], [facility] [phone] * CT ABDOMEN PELVIS W CONTRAST (11/16/2022 [...] resolved. > Dictated by Abdifatah Jean MD (residential sales). I, Alexx Lopez have personally reviewed and interpreted this examination/study. > Interpreting Provider: Alexx Lopez on 11/17/2022 11:31 AM Narrative 11/17/2022 11:31 AM CDT PROCEDURE: ??CT ABDOMEN PELVIS W CONTRAST, DATE/TIME OF EXAM: ??11/16/2022 4:32 PM, LOCATION ??[facility] INDICATION: I33.0: Aortic valve vegetation [...] CONTRAST, DATE/TIME OF EXAM: 34:32 PM, LOCATION [facility] INDICATION: I33.0: Aortic valve vegetation [...] resolved. > Dictated by Abdifatah Jean MD (residential sales). I, Alexx Lopez have personally reviewed and interpreted this examination/study. > Interpreting Provider: Alexx Lopez on 11/17/2022 11:31 AM Good Antunez MD CT ORDERABLES * (ABNORMAL) DIFFERENTIAL MANUAL (11/16/2022 2:17 AM CDT) WBC (corrected for NRBC) 7.3 10? 3 /uL 11/16/2022 4:29 AM [facility] Total Cell Count 100 11/17/19 23 4:29 AM [facility] Neutrophils Absolute Manual 4.60 1.60 - 7.00 10? 3 /uL 11/16/2022 4:29 AM [facility] Comment:(BANDS+SEGS) x WBC = NEUT # (ANC) Lymphocyte Absolute Manual 1.75 1.10 - 3.90 10? 3 /uL 11/16/2022 4:29 AM [facility] Monocytes Absolute Manual 0.80 0.26 - 1.07 10? 3 /uL 11/16/2022 4:29 AM [facility] Eosinophils Absolute Manual 0.15 0.00 - 0.47 10? 3 /uL 11/16/2022 4:29 AM [facility] Band % Manual 1 0 - 10 % 11/16/2022 4:29 AM [facility] Neutrophil % Manual 62 35 - 70 % 11/16/2022 4:29 AM [facility] Lymphocyte % Manual 24 20 - 43 % 11/16/2022 4:29 AM [facility] Monocytes % Manual 11 5 - 13 % 11/16/2022 4:29 AM [facility] Eosinophils % Manual 2 0 - 6 % 11/16/2022 4:29 AM [facility] Platelet Estimate Adequate Adequate 11/16/2022 4:29 AM [facility] Anisocytosis Occasional( A) None 11/16/2022 4:29 AM [facility] Polychromasia Few(A) None 11/16/2022 4:29 AM [facility] Ovalocytes Occasional( A) None 11/16/2022 4:29 AM [facility] Riverside Cells Occasional( A) None 11/16/2022 4:29 AM [facility] Smudge Cells Rare(A) None 11/16/2022 4:29 AM [facility] Blood BLOOD SPECIMEN / Unknown Lab Venipuncture / Unknown 11/16/2022 2:17 AM CDT 11/16/2022 3:01 AM CDT Good Antunez MD LAB - HEMATOLOGY ORD ERABLES [address] [address], [facility] [phone] * PHOSPHORUS BLOOD (11/16/2022 2:17 AM CDT) Phosphorus 3.5 2.9 - 5.1 mg/dL 11/16/2022 3:30 AM T [facility] Blood BLOOD SPECIMEN / Unknown Lab Venipuncture / Unknown 11/16/2022 2:17 AM CDT 11/16/2022 3:02 AM CDT Good Antunez MD LAB - CHEMISTRY ORDDanyelle BLACKMAN [address] [address], [place] [phone] * MAGNESIUM BLOOD (11/16/2022 2:17 AM CDT) Magnesium 2.4 1.6 - 2.6 mg/dL 11/16/2022 3:30 AM [facility] Blood BLOOD SPECIMEN / Unknown Lab Venipuncture / Unknown 11/16/2022 2:17 AM CDT 11/16/2022 3:02 AM CDT Good Antunez MD LAB - CHEMISTRY BIBIANA BLACKMAN [facility] Organization Address City/State/ZIP Co de Phone Number [facility] [address] [place] [address], [facility] [phone] * (ABNORMAL) BASIC METABOLIC PANEL (CALCIUM TOTAL) (11/16/2022 2:17 AM CDT) BUN 13 7 - 26 mg/dL 11/16/2022 3:30 AM [facility] Creatinine 0.57 0.56 - 0.96 mg/dL 11/16/2022 3:30 AM [facility] Sodium 139 136 - 145 mmol/L 11/16/2022 3:30 AM [facility] Potassium 4.0 3.5 - 4.5 mmol/L 11/16/2022 3:30 AM [facility] Chloride 104 98 - 107 mmol/L 11/16/2022 3:30 AM [facility] CO2 27 22 - 29 mmol/L 11/16/2022 3:30 AM [facility] Glucose 129(H) 70 - 115 mg/dL 11/16/2022 3:30 AM [facility] Calcium 8.8 8.4 - 10.2 mg/dL 11/16/2022 3:30 AM [facility] Anion Gap 12 8 - 18 11/16/2022 3:30 AM [facility] BUN/Creatinine Ratio 23 7 - 23 11/16/2022 3:30 AM [facility] Osmolality Calculated 290 270 - 300 mOsm/kg 11/16/2022 3:30 AM [facility] eGFR by CKD-EPI >90 >=90 mL/min/1.7 3 m2 11/16/2022 3:30 AM [facility] Blood BLOOD SPECIMEN / Unknown Lab Venipuncture / Unknown 11/16/2022 2:17 AM CDT 11/16/2022 3:02 AM CDT Good Antunez MD LAB - CHEMISTRY BIBIANA BLACKMAN [facility] Organization Address City/State/ZIP Co de Phone Number [facility] [address] [place] [address] [phone] * (ABNORMAL) CBC W AUTO DIFFERENTIAL (11/16/2022 2:17 AM CDT) WBC 7.3 3.5 - 10.5 10? 3 /uL 11/16/2022 3:12 AM [facility] RBC 3.49(L) 3.80 - 5.20 10? 6 /uL 11/16/2022 3:12 AM [facility] Hemoglobin 10.1(L) 12.0 - 15.6 g/dL 11/16/2022 3:12 AM [facility] Hematocrit 32.6(L) 35.0 - 45.0 % 11/16/2022 3:12 AM [facility] MCV 93.4 80.7 - 98.3 fL 11/16/2022 3:12 AM [facility] MCH 28.9 26.7 - 34.0 pg 11/16/2022 3:12 AM [facility] MCHC 31.0 30.8 - 35.9 g/dL 11/16/2022 3:12 AM [facility] RDW-SD 51.5(H) 36.0 - 50.0 fL 11/16/2022 3:12 AM [facility] RDW-CV 15.6(H) 11.2 - 14.8 % 11/16/2022 3:12 AM [facility] Platelet Count 446(H) 150 - 400 10? 3 /uL 11/16/2022 3:12 AM [facility] MPV 10.9 9.4 - 12.9 fL 11/16/2022 3:12 AM CDT [facility] nRBC Absolute 0.00 0 10? 3 /uL 11/16/2022 3:12 AM CDT [facility] nRBC Auto 0.0 0 /100 WBC 11/16/2022 3:12 AM CDT [facility] Blood BLOOD SPECIMEN / Unknown Lab Venipuncture / Unknown 11/16/2022 2:17 AM CDT 11/16/2022 3:01 AM CDT Good Antunez MD LAB - HEMATOLOGY ORD ERABLES [facility] [address] [place] [address], [facility] [phone] * PTT [facility] (11/16/2022 2:17 AM CDT) APTT 26.0 23.0 - 38.4 Seconds 11/16/2022 3:23 AM T [facility] Comment:Suggested therapeuti c range for full dose I.V. unfractionated heparin therapy for venous thromboembolism is 71 to 109 seconds. Blood BLOOD SPECIMEN / Unknown Lab Venipuncture / Unknown 11/16/2022 2:17 AM CDT 11/16/2022 3:02 AM CDT Good Antunez MD LAB - COAGULATION OR DERABLES [facility] [address] [place] [address], [facility] [phone] * PT-INR [facility] (11/16/2022 2:17 AM CDT) PT 13.9 12.1 - 14.8 Seconds 11/16/2022 3:23 AM CDT [facility] INR 1.1 See Comment 11/16/2022 3:23 AM T [facility] Comment:The suggested therap eutic range for standard coumadin (warfarin) therapy is an INR of 2.0-3.0. For high-risk patients (Mechanical Mitral Valve Prosthesis, etc.), the suggested prophylactic therapeutic range is an INR of 2.5-3.5. Blood BLOOD SPECIMEN / Unknown Lab Venipuncture / Unknown 11/16/2022 2:17 AM CDT 11/16/2022 3:02 AM CDT Emir Vail MD LAB - COAGULATION OR DERABLES Performing Organization Address City/[facility]/ZIP Co de Phone Number [address] [address], [facility] [phone] * GRAM STAIN (LAB ORDERED) (11/15/2022 12:27 PM CDT) Gram Stain No polymorphonuclear cells 11/15/2022 4:45 PM CDT [facility] Gram Stain No organisms seen 023 4:45 PM CDT [facility] Microbiology Collection / Unknown 11/15/2022 12:27 PM CDT 11/15/2022 12:27 PM CDT Good Antunez MD LAB - MICROBIOLOGY O RDJINBLES Performing Organization Address City/[facility]/ZIP Co de Phone Number [address] [address], [facility] [phone] * CULTURE CSF+GRAM STAIN (11/15/2022 12:25 PM CDT) Culture No growth ROSELIA 11/22/2022 4:18 AM CDT [facility] MICROBIOLOG[facility] Gram Stain No polymorphonuclear cells 11/22/2022 4:18 AM CDT [facility]CROBI[facility] Gram Stain No organisms seen 023 4:18 AM CDT [facility] Cerebral spinal fluid CEREBROSPINAL FLUID SPECIMEN / Unknown Collection / Unknown 11/15/2022 12:25 PM CDT 11/15/2022 12:25 PM CDT Good Antunez MD LAB - MICROBIOLOGY O RDERABLES Performing Organization Address City/[facility]/ZIP Co de Phone Number [facility] [address] [place] [address], [facility] [phone] * HOLD SPECIMEN CSF (11/15/2022 12:25 PM CDT) Specimen Hold 11/15/2022 1:32 PM CDT [facility] Comment:The Hold Sample has been received in the lab and will be held for 30 days. Cerebral spinal fluid CEREBROSPINAL FLUID SPECIMEN / Unknown Collection / Unknown 11/15/2022 12:25 PM CDT 11/15/2022 12:25 PM CDT Good Antunez MD LAB - BODY FLUID ORD ERABLES [facility] [address] [place] [address], [facility] [phone] * MENINGITIS ENCEPHALITIS PCR PANEL CSF (11/15/2022 12:25 PM CDT) Listeria monocytogenes PCR Not Detected 11/17/2022 7:00 AM CDT [facility] ([facility]) Escherichia coli K1 PCR Not Detected 11/17/2022 7:00 AM CDT [facility] ([facility]) Haemophilus influenzae PCR Not Detected 11/17/2022 7:00 AM CDT [facility] ([facility]) Neisseria meningitidis PCR Not Detected 11/17/2022 7:00 AM CDT [facility] ([facility]) Streptococcus agalactiae PCR Not Detected 11/17/2022 7:00 AM CDT [facility] ([facility]) Streptococcus pneumoniae PCR Not Detected 11/17/2022 7:00 AM CDT [facility] ([facility]) Cytomegalovirus PCR Not Detected 11/17/2022 7:00 AM CDT [facility] ([facility]) Enterovirus PCR Not Detected 11/17/2022 7:00 AM CDT [facility] ([facility]) Herpes Simplex Virus 1 PCR Not Detected 11/17/2022 7:00 AM CDT [facility] ([facility]) Herpes Simplex Virus 2 PCR Not Detected 11/17/2022 7:00 AM CDT [facility] ([facility]) Human Herpesvirus 6 PCR Not Detected 11/17/2022 7:00 AM CDT [facility] ([facility]) Human parechovirus PCR Not Detected 11/17/2022 7:00 AM CDT [facility] ([facility]) Varicella zoster virus PCR Not Detected 11/17/2022 7:00 AM CDT [facility] ([facility]) Cryptococcus neoformans/gattii PCR Not Detected 11/17/2022 7:00 AM CDT [facility] ([facility]) Comment: INTERPRETIVE INFORMATION: Meningitis Encephalitis Panel by [...] factors and other laboratory information. Performed By: [place] [address] Film Spooler: Boo Bond MD, PhD CLIA Number: [id number] Cerebral spinal fluid CEREBROSPINAL FLUID SPECIMEN / Unknown Collection / Unknown 11/15/2022 12:25 PM CDT 11/15/2022 12:25 PM CDT Good Antunez MD LAB - MICROBIOLOGY O RDERABLES [facility] [address] [place] [address], [facility] * CELL COUNT W DIFFERENTIAL CSF (11/15/2022 12:25 PM CDT) Color Fluid Colorless Colorless, Straw 11/15/2022 12:42 PM CDT [facility] Clarity Fluid Clear Clear 11/15/2022 12:42 PM CDT [facility] Volume Fluid 3.5 mL 11/15/2022 12:42 PM CDT [facility] WBC Calculation Fluid 1 0 - 5 x10e6/L 11/15/2022 12:42 PM [facility] RBC Calculation 4 x10e6/L 12:42 PM CDT [facility] Xanthochromia Fluid Negative Negative 11/15/2022 12:42 PM CDT [facility] Differential 11/15/2022 12:42 PM T [facility] Comment:No differential perf ormed per procedure. Cerebral spinal fluid CEREBROSPINAL FLUID SPECIMEN / Unknown Collection / Unknown 11/15/2022 12:25 PM CDT 11/15/2022 12:25 PM CDT Narrative [facility] - 11/15/2022 12:42 PM CDT No reference ranges established for body fluid cell counts. The reference ranges provided are derived from published literature. The test results must be integrated into the clinical context for interpretation. Good Antunez MD LAB - BODY FLUID ORD ERABLES [address] [address], [place] [phone] * PROTEIN CSF (11/15/2022 12:25 PM CDT) Protein CSF 34 15 - 45 mg/dL 11/15/2022 1:15 PM CDT [facility] Cerebral spinal fluid CEREBROSPINAL FLUID SPECIMEN / Unknown Collection / Unknown 11/15/2022 12:25 PM CDT 11/15/2022 12:25 PM CDT Good Antunez MD LAB - BODY FLUID ORD ERABLES Performing Organization Address City/[facility]/ZIP Co de Phone Number [address] [address], [place] [phone] * GLUCOSE CSF (11/15/2022 12:25 PM CDT) Glucose CSF 57 40 - 70 mg/dL 11/15/2022 1:15 PM CDT [facility] Cerebral spinal fluid CEREBROSPINAL FLUID SPECIMEN / Unknown Collection / Unknown 11/15/2022 12:25 PM CDT 11/15/2022 12:25 PM CDT Good Antunez MD LAB - BODY FLUID ORD ERABLES Performing Organization Address City/[facility]/ZIP Co de Phone Number [address] [address], [place] [phone] * CULTURE FUNGUS OTHER+FUNGUS SMEAR (11/15/2022 12:17 PM CDT) Culture No fungus isolated ROSELIA 12/11/2022 7:18 AM CDT [facility]CRO[facility] Fungus Stain No yeast or hyphae seen 12/11/2022 7:18 AM CDT [facility] Microbiology CEREBROSPINAL FLUID SPECIMEN / Unknown Collection / Unknown 11/15/2022 12:17 PM CDT 11/15/2022 12:29 PM CDT Good Antunez MD LAB - MICROBIOLOGY O RDERABLES [facility] [address] [place] [address], [facility] [phone] * CULTURE AFB+SMEAR (11/15/2022 12:17 PM CDT) Culture No acid-fast bacillus isolated 12/25/2022 7:40 AM CDT [facility] MICROBIOLOGY AFB Smear No acid-fast bacilli seen 12/25/2022 7:40 AM CDT [facility] Microbiology CEREBROSPINAL FLUID SPECIMEN / Unknown Collection / Unknown 11/15/2022 12:17 PM CDT 11/15/2022 12:29 PM CDT Good Antunez MD LAB - MICROBIOLOGY O RDERABLES [facility] [address] [place] [address], [facility] [phone] * FL LUMBAR PUNCTURE (11/15/2022 12:10 PM CDT) Anatomical Region Laterality Modality Spine Radiographic Irene ging 11/15/2022 1:13 PM CDT Impressions 11/15/2022 2:16 PM CDT IMPRESSION: 1.Successful lumbar puncture under fluoroscopic guidance at L3-L4. > Dictated by Royer Stovall MD (residential sales). I, Oriana Suarez MD have personally reviewed and interpreted this examination/study. > Interpreting Provider: Oriana Suarez MD on 11/15/2022 2:16 PM Narrative 11/15/2022 2:16 PM CDT PROCEDURE: ??FL LUMBAR PUNCTURE, DATE/TIME OF EXAM: ??11/15/2022 1:24 PM, LOCATION ??[facility] INDICATION: R50.9: Fever, unspecified fever [...] DATE/TIME OF EXAM: 11/15/2022 1:24 PM, LOCATION [facility] INDICATION: R50.9: Fever, unspecified fever [...] L3-L4. > Dictated by Royer Stovall MD (residential sales). I, Oriana Suarez MD have personally reviewed and interpreted this examination/study. > Interpreting Provider: Oriana Suarez MD on 11/15/2022 2:16 PM Good Antunez MD FLUOROSCOPY ORDERABL ES * (ABNORMAL) EOSINOPHIL URINE SMEAR (11/15/2022 9:57 AM CDT) Pathologist [facility] Eosin Stain Urine Rare(A) None 11/15/2022 12:46 PM CDT [facility] Urine URINE SPECIMEN OBTAINED BY CLEAN CATCH PROCEDURE / Unknown Collection / Unknown 11/15/2022 9:57 AM CDT 11/15/2022 10:00 AM CDT Good Antunez MD LAB - URINE CHEMISTR Y ORDERABLES [facility] [address] [place] [address], [facility] [phone] * (ABNORMAL) HEPATIC FUNCTION PANEL (11/15/2022 2:12 AM CDT) Pathologist [facility] Protein Total 6.5 6.0 - 8.3 g/dL 023 3:40 AM [facility] Albumin 2.5(L) 3.4 - 5.0 g/dL 11/15/2022 3:40 AM [facility] Bilirubin Total 0.3 0.2 - 1.2 mg/dL 08/2022 3:40 AM [facility] Bilirubin Conjugated 0.1 0.1 - 0.5 mg/dL 11/15/2022 3:40 AM [facility] Bilirubin Unconjugated 0.2 Unconjugated Bilirubin is a calculated value: Reference ranges have not been established. mg/dL 11/15/2022 3:40 AM [facility] Alkaline Phosphatase 80 40 - 150 U/L 11/15/2022 3:40 AM [facility] ALT 237(H) 5 - 55 U/L 11/15/2022 3:40 AM [facility] AST 104(H) 5 - 34 U/L 11/15/2022 3:40 AM [facility] Albumin/Globulin Ratio 0.6(L) 1.1 - 2.3 11/15/2022 3:40 AM [facility] Blood BLOOD SPECIMEN / Unknown Lab Venipuncture / Unknown 11/15/2022 2:12 AM CDT 11/15/2022 3:07 AM CDT Good Antnuez MD LAB - CHEMISTRY [facility] Organization Address [facility]/State/[facility] Co de Phone Number [address] [address] [phone] * PHOSPHORUS BLOOD (11/15/2022 2:12 AM CDT) Phosphorus 3.0 2.9 - 5.1 mg/dL 11/15/2022 3:38 AM [facility] Blood BLOOD SPECIMEN / Unknown Lab Venipuncture / Unknown 11/15/2022 2:12 AM CDT 11/15/2022 3:07 AM CDT Good Antunez MD LAB - CHEMISTRY [place] BLACKMAN [facility] [address] [place] [address], [facility] [phone] * MAGNESIUM BLOOD (11/15/2022 2:12 AM CDT) Pathologist [facility] Magnesium 2.0 1.6 - 2.6 mg/dL 11/15/2022 3:38 AM T [facility] Blood BLOOD SPECIMEN / Unknown Lab Venipuncture / Unknown 11/15/2022 2:12 AM CDT 11/15/2022 3:07 AM CDT Good Antunez MD LAB - CHEMISTRY [place] BLACKMAN Performing Organization Address [facility]/ZIP Co de Phone Number [address] [address], [facility] [phone] * (ABNORMAL) BASIC METABOLIC PANEL (CALCIUM TOTAL) (11/15/2022 2:12 AM CDT) Pathologist [facility] BUN 12 7 - 26 mg/dL 11/15/2022 3:38 AM [facility] Creatinine 0.50(L) 0.56 - 0.96 mg/dL 11/15/2022 3:38 AM [facility] Sodium 137 136 - 145 mmol/L 11/15/2022 3:38 AM [facility] Potassium 4.0 3.5 - 4.5 mmol/L 11/15/2022 3:38 AM [facility] Chloride 103 98 - 107 mmol/L 11/15/2022 3:38 AM [facility] CO2 26 22 - 29 mmol/L 11/15/2022 3:38 AM [facility] Glucose 115 70 - 115 mg/dL 11/15/2022 3:38 AM [facility] Calcium 8.6 8.4 - 10.2 mg/dL 11/15/2022 3:38 AM [facility] Anion Gap 12 8 - 18 11/15/2022 3:38 AM [facility] BUN/Creatinine Ratio 24(H) 7 - 23 11/15/2022 3:38 AM [facility] Osmolality Calculated 285 270 - 300 mOsm/kg 11/15/2022 3:38 AM [facility] eGFR by CKD-EPI >90 >=90 mL/min/1.7 3 m2 11/15/2022 3:38 AM [facility] Blood BLOOD SPECIMEN / Unknown Lab Venipuncture / Unknown 11/15/2022 2:12 AM CDT 11/15/2022 3:07 AM CDT Good Antunez MD LAB - CHEMISTRY [place] BLACKMAN [facility] Organization Address City/State/ZIP Co de Phone Number [facility] [address] [place] [address], [facility] [phone] * (ABNORMAL) CBC W AUTO DIFFERENTIAL (11/15/2022 2:12 AM T) WBC 5.5 3.5 - 10.5 10? 3 /uL 11/15/2022 3:13 AM [facility] RBC 3.51(L) 3.80 - 5.20 10? 6 /uL 11/15/2022 3:13 AM [facility] Hemoglobin 10.0(L) 12.0 - 15.6 g/dL 11/15/2022 3:13 AM [facility] Hematocrit 32.6(L) 35.0 - 45.0 % 11/15/2022 3:13 AM [facility] MCV 92.9 80.7 - 98.3 fL 11/15/2022 3:13 AM [facility] MCH 28.5 26.7 - 34.0 pg 11/15/2022 3:13 AM [facility] MCHC 30.7(L) 30.8 - 35.9 g/dL 11/15/2022 3:13 AM [facility] RDW-SD 50.4(H) 36.0 - 50.0 fL 11/15/2022 3:13 AM [facility] RDW-CV 15.2(H) 11.2 - 14.8 % 11/15/2022 3:13 AM [facility] Platelet Count 404(H) 150 - 400 10? 3 /uL 11/15/2022 3:13 AM [facility] MPV 11.1 9.4 - 12.9 fL 11/15/2022 3:13 AM [facility] nRBC Absolute 0.00 0 10? 3 /uL 11/15/2022 3:13 AM [facility] nRBC Auto 0.0 0 /100 WBC 11/15/2022 3:13 AM [facility] Neutrophils % 44.1 35.0 - 70.0 % 11/15/2022 3:13 AM [facility] Lymphocytes % 35.4 20.0 - 43.0 % 11/15/2022 3:13 AM [facility] Monocytes % 8.9 5.0 - 13.0 % 11/15/2022 3:13 AM [facility] Eosinophils % 10.3(H) 0.0 - 6.0 % 11/15/2022 3:13 AM [facility] Basophil % 0.4 0.0 - 2.0 % 11/15/2022 3:13 AM [facility] Neutrophils Absolute 2.43 1.60 - 7.00 10? 3 /uL 11/15/2022 3:13 AM [facility] Lymphocyte Absolute 1.95 1.10 - 3.90 10? 3 /uL 11/15/2022 3:13 AM [facility] Monocytes Absolute 0.49 0.26 - 1.07 10? 3 /uL 11/15/2022 3:13 AM [facility] Eosinophils Absolute 0.57(H) 0.00 - 0.47 10? 3 /uL 11/15/2022 3:13 AM [facility] Basophils Absolute 0.02 0.00 - 0.08 10? 3 /uL 11/15/2022 3:13 AM [facility] Immature Granulocytes % 0.9 0.0 - 1.0 % 11/15/2022 3:13 AM [facility] Immature Granulocytes Absolute 0.05 11/15/2022 3:13 AM [facility] Blood BLOOD SPECIMEN / Unknown Lab Venipuncture / Unknown 11/15/2022 2:12 AM CDT 11/15/2022 3:07 AM CDT Good Antunez MD LAB - HEMATOLOGY ORD ERABLES Performing Organization Address [facility]/ZIP Co de Phone Number [address] [address], [facility] [phone] * PTT [facility] (11/15/2022 2:12 AM CDT) APTT 28.2 23.0 - 38.4 Seconds 11/15/2022 3:34 AM CDT [facility] Comment:Suggested therapeuti c range for full dose I.V. unfractionated heparin therapy for venous thromboembolism is 71 to 109 seconds. Blood BLOOD SPECIMEN / Unknown Lab Venipuncture / Unknown 11/15/2022 2:12 AM CDT 11/15/2022 3:08 AM CDT Good Antunez MD LAB - COAGULATION OR DERABLES Performing Organization Address [facility] Co de Phone Number [address] [address], [facility] [phone] * PT-INR [facility] (11/15/2022 2:12 AM CDT) PT 14.3 12.1 - 14.8 Seconds 11/15/2022 3:34 AM CDT [facility] INR 1.1 See Comment 11/15/2022 3:34 AM CDT [facility] Comment:The suggested therap eutic range [...] Organization Address [facility]/ZIP Co de Phone Number [facility] [address] [place] [address], [facility] [phone] * US ABDOMEN LTD W COMP DOPPLER (11/14/2022 9:24 AM CDT) Anatomical Region Laterality Modality Abdomen Ultrasound 11/14/2022 9:18 AM CDT Impressions 11/14/2022 9:54 AM CDT IMPRESSION: 1.No discrete hepatic lesion or intrahepatic biliary ductal dilatation. 2.Patent hepatic vasculature. Borderline low velocity the main portal vein measuring 18 cm/s. 3.Status post cholecystectomy. > Dictated by Miranda Bowen MD (residential sales). > Dictated by Miranda Bowen (Refractory Furnace Designer) 11/14/2022 9:18 AM IHEATHER MD have personally [...] cholecystectomy. > Dictated by Miranda Bowen MD (residential sales). > Dictated by Miranda Bowen (Refractory Furnace Designer) 11/14/2022 9:18 AM IHEATHER MD have personally reviewed and interpreted this examination/study. > Interpreting Provider: HEATHER FREGOSO MD on 11/14/2022 9:54 AM Good Antunez MD US ORDERABLES * (ABNORMAL) HEPATIC FUNCTION PANEL (11/14/2022 2:39 AM CDT) Protein Total 6.5 6.0 - 8.3 g/dL 023 3:57 AM [facility] Albumin 2.4(L) 3.4 - 5.0 g/dL 11/14/2022 3:57 AM [facility] Bilirubin Total 0.3 0.2 - 1.2 mg/dL 07/2022 3:57 AM [facility] Bilirubin Conjugated 0.1 0.1 - 0.5 mg/dL 11/14/2022 3:57 AM [facility] Bilirubin Unconjugated 0.2 Unconjugated Bilirubin is a calculated value: Reference ranges have not been established. mg/dL 11/14/2022 3:57 AM [facility] Alkaline Phosphatase 78 40 - 150 U/L 11/14/2022 3:57 AM [facility] ALT 278(H) 5 - 55 U/L 11/14/2022 3:57 AM [facility] AST 158(H) 5 - 34 U/L 11/14/2022 3:57 AM [facility] Albumin/Globulin Ratio 0.6(L) 1.1 - 2.3 11/14/2022 3:57 AM [facility] Blood BLOOD SPECIMEN / Unknown Lab Venipuncture / Unknown 11/14/2022 2:39 AM CDT 11/14/2022 3:16 AM CDT Good Antunez MD LAB - CHEMISTRY [place] BLACKMAN Performing Organization Address [facility] de Phone Number [address] [address], [facility] [phone] * PHOSPHORUS BLOOD (11/14/2022 2:39 AM CDT) Phosphorus 3.5 2.9 - 5.1 mg/dL 11/14/2022 3:54 AM T [facility] Blood BLOOD SPECIMEN / Unknown Lab Venipuncture / Unknown 11/14/2022 2:39 AM CDT 11/14/2022 3:16 AM CDT Good Antunez MD LAB - CHEMISTRY B[place] BLACKMAN [facility] [address] [place] [address], [facility] [phone] * MAGNESIUM BLOOD (11/14/2022 2:39 AM CDT) [facility] Magnesium 2.0 1.6 - 2.6 mg/dL 11/14/2022 3:54 AM [facility] Blood BLOOD SPECIMEN / Unknown Lab Venipuncture / Unknown 11/14/2022 2:39 AM CDT 11/14/2022 3:16 AM CDT Good Antunez MD LAB - CHEMISTRY [place] BLACKMAN [address] [address], [facility] [phone] * (ABNORMAL) BASIC METABOLIC PANEL (CALCIUM TOTAL) (11/14/2022 2:39 AM CDT) [facility] BUN 11 7 - 26 mg/dL 11/14/2022 3:54 AM [facility] Creatinine 0.51(L) 0.56 - 0.96 mg/dL 11/14/2022 3:54 AM [facility] Sodium 140 136 - 145 mmol/L 11/14/2022 3:54 AM [facility] Potassium 3.9 3.5 - 4.5 mmol/L 11/14/2022 3:54 AM [facility] Chloride 104 98 - 107 mmol/L 11/14/2022 3:54 AM [facility] CO2 25 22 - 29 mmol/L 11/14/2022 3:54 AM [facility] Glucose 109 70 - 115 mg/dL 11/14/2022 3:54 AM [facility] Calcium 8.6 8.4 - 10.2 mg/dL 11/14/2022 3:54 AM [facility] Anion Gap 15 8 - 18 11/14/2022 3:54 AM [facility] BUN/Creatinine Ratio 22 7 - 23 11/14/2022 3:54 AM [facility] Osmolality Calculated 290 270 - 300 mOsm/kg 11/14/2022 3:54 AM [facility] eGFR by CKD-EPI >90 >=90 mL/min/1.7 3 m2 11/14/2022 3:54 AM [facility] Blood BLOOD SPECIMEN / Unknown Lab Venipuncture / Unknown 11/14/2022 2:39 AM CDT 11/14/2022 3:16 AM CDT Good Antunez MD LAB - CHEMISTRY [place] [facility] Organization Address City/State/ZIP Co de Phone Number [facility] [address] [place] [address], [facility] [phone] * (ABNORMAL) CBC W AUTO DIFFERENTIAL (11/14/2022 2:39 AM CDT) WBC 4.7 3.5 - 10.5 10? 3 /uL 11/14/2022 3:43 AM [facility] RBC 3.47(L) 3.80 - 5.20 10? 6 /uL 11/14/2022 3:43 AM [facility] Hemoglobin 9.9(L) 12.0 - 15.6 g/dL 11/14/2022 3:43 AM [facility] Hematocrit 32.8(L) 35.0 - 45.0 % 11/14/2022 3:43 AM [facility] MCV 94.5 80.7 - 98.3 fL 11/14/2022 3:43 AM [facility] MCH 28.5 26.7 - 34.0 pg 11/14/2022 3:43 AM [facility] MCHC 30.2(L) 30.8 - 35.9 g/dL 11/14/2022 3:43 AM [facility] RDW-SD 51.5(H) 36.0 - 50.0 fL 11/14/2022 3:43 AM [facility] RDW-CV 15.0(H) 11.2 - 14.8 % 11/14/2022 3:43 AM [facility] Platelet Count 364 150 - 400 10? 3 /uL 11/14/2022 3:43 AM [facility] MPV 11.2 9.4 - 12.9 fL 11/14/2022 3:43 AM [facility] nRBC Absolute 0.00 0 10? 3 /uL 11/14/2022 3:43 AM [facility] nRBC Auto 0.0 0 /100 WBC 11/14/2022 3:43 AM [facility] Neutrophils % 32.3(L) 35.0 - 70.0 % 11/14/2022 3:43 AM [facility] Lymphocytes % 41.5 20.0 - 43.0 % 11/14/2022 3:43 AM [facility] Monocytes % 10.5 5.0 - 13.0 % 11/14/2022 3:43 AM [facility] Eosinophils % 13.8(H) 0.0 - 6.0 % 11/14/2022 3:43 AM [facility] Basophil % 0.6 0.0 - 2.0 % 11/14/2022 3:43 AM [facility] Neutrophils Absolute 1.50(L) 1.60 - 7.00 10? 3 /uL 11/14/2022 3:43 AM [facility] Lymphocyte Absolute 1.93 1.10 - 3.90 10? 3 /uL 11/14/2022 3:43 AM [facility] Monocytes Absolute 0.49 0.26 - 1.07 10? 3 /uL 11/14/2022 3:43 AM [facility] Eosinophils Absolute 0.64(H) 0.00 - 0.47 10? 3 /uL 11/14/2022 3:43 AM [facility] Basophils Absolute 0.03 0.00 - 0.08 10? 3 /uL 11/14/2022 3:43 AM [facility] Immature Granulocytes % 1.3(H) 0.0 - 1.0 % 11/14/2022 3:43 AM [facility] Immature Granulocytes Absolute 0.06 11/14/2022 3:43 AM [facility] Blood BLOOD SPECIMEN / Unknown Lab Venipuncture / Unknown 11/14/2022 2:39 AM CDT 11/14/2022 3:19 AM CDT Good Antunez MD LAB - HEMATOLOGY ORD ERABLES Performing Organization Address [facility] Co de Phone Number [address] [address], [facility] [phone] * (ABNORMAL) PTT [facility] (11/14/2022 2:39 AM CDT) APTT 45.9(H) 23.0 - 38.4 Seconds 11/14/2022 3:39 AM CDT [facility] Comment:Suggested therapeuti c range for full dose I.V. unfractionated heparin therapy for venous thromboembolism is 71 to 109 seconds. Blood BLOOD SPECIMEN / Unknown Lab Venipuncture / Unknown 11/14/2022 2:39 AM CDT 11/14/2022 3:12 AM CDT Good Antunez MD LAB - COAGULATION OR DERABLES Performing Organization Address [facility] Co de Phone Number [address] [address], [facility] [phone] * (ABNORMAL) PT-INR [facility] (11/14/2022 2:39 AM CDT) PT 15.9(H) 12.1 - 14.8 Seconds 11/14/2022 3:39 AM CDT [facility] INR 1.3 See Comment 11/14/2022 3:39 AM CDT [facility] Comment:The suggested therap eutic range for standard coumadin (warfarin) therapy is an INR of 2.0-3.0. For high-risk patients (Mechanical Mitral Valve Prosthesis, etc.), the suggested prophylactic therapeutic range is an INR of 2.5-3.5. Blood BLOOD SPECIMEN / Unknown Lab Venipuncture / Unknown 11/14/2022 2:39 AM CDT 11/14/2022 3:12 AM CDT Emir Vail MD LAB - COAGULATION OR DERABLES [facility] [address] [place] [address], [facility] [phone] * PREPARE FFP UNIT(S), 1 Units (11/14/2022 1:17 AM CDT) Unit Description N/A [facility] Blood Bank BLOOD SPECIMEN / Unknown 11/10/2022 11:51 PM CDT Good Antunez MD LAB - BLOOD BANK ORD ERABLES Performing Organization Address [facility]/ZIP Co de Phone Number [facility] [address] [place] [address], [facility] [phone] * PREPARE (CROSSMATCH) RBC UNIT(S), 2 Units (11/14/2022 1:17 AM CDT) Unit Description AS1 LR PRBC [facility] Unit ABO B [facility] Unit Rh POS [facility] Product Number R02 [facility] B LOOD [facility]ANK LAB Unit Donor # [id number] [facility] Unit Status released [facility] BLOO D BANK LAB Product Code [id number] [facility] OD [facility] Blood Type Barcode 7300 [facility] Expiration Date S BLOOD BANK LAB Unit Description AS1 LR PRBC [facility] Unit ABO B [facility] Unit Rh POS [facility] B[facility] Product Number R02 [facility] B LOOD BANK LAB Unit Donor # [id number] [facility] Unit Status released [facility] BLOO D [facility] Product Code [id number] [facility] BLO OD [facility] LAB Blood Type Barcode 7300 [facility] B[facility] Expiration Date S BLOOD BANK LAB Blood Bank BLOOD SPECIMEN / Unknown 11/10/2022 11:51 PM CDT Good Antunez MD LAB - BLOOD BANK ORD ERABLES Performing Organization Address City/[facility]/ZIP Co de Phone Number [facility] [address] [place] [address], [facility] [phone] * CYTOMEGALOVIRUS (CMV) QUANTITATIVE PLASMA (11/13/2022 3:34 PM CDT) [facility] CMV Quant by PCR, Interp Not detected Not detected 11/14/2022 12:40 PM CDT [facility] Blood BLOOD SPECIMEN / Unknown Lab Venipuncture / Unknown 11/13/2022 3:34 PM CDT 11/13/2022 3:53 PM CDT Narrative [facility] - 11/14/2022 12:40 PM CDT The [...] Antunez MD LAB - CHEMISTRY BIB[place]NA BLACKMAN [facility] [address] [place] [address], [facility] [phone] * MARY JO-HERBERT VIRUS QUANT BLOOD STL (11/13/2022 3:34 PM CDT) [facility] EBV Quant by PCR, Interp Not detected Not detected 11/14/2022 1:40 PM CDT [facility] Specimen Type Plasma 11/14/2022 1:40 PM CDT [facility] Blood BLOOD SPECIMEN / Unknown Lab Venipuncture / Unknown 11/13/2022 3:34 PM CDT 11/13/2022 3:53 PM CDT Narrative [facility] - 11/14/2022 1:40 PM CDT DNA [...] developed and its performance characteristics determined by [facility]. ??It has not been cleared or approved [...] - CHEMISTRY BIB[place]NA BLACKMAN Performing Organization Address City/[facility]/ZIP Co de Phone Number [facility] [address] [place], [place] [id number] [place] [address] * CK BLOOD (11/13/2022 3:34 PM CDT) [facility] CK Total 57 30 - 200 U/L 11/13/2022 4:17 PM CDT [facility] Blood BLOOD SPECIMEN / Unknown Lab Venipuncture / Unknown 11/13/2022 3:34 PM CDT 11/13/2022 3:52 PM CDT Good Antunez MD LAB - CHEMISTRY B[place]NA BLACKMAN Performing Organization Address City/[facility]/ZIP Co de Phone Number [facility] [address] [place] [address], [place] [phone] * (ABNORMAL) GLUCOSE - POINT OF CARE (11/13/2022 4:14 AM CDT) [facility] Glucose WB/POC 120(H) 70 - 115 mg/dL 11/13/2022 4:27 AM CDT [facility] Specimen Type Cap Fingerstick 2022 4:27 AM CDT [facility] Blood BLOOD SPECIMEN / Unknown 11/13/2022 4:14 AM CDT 11/13/2022 4:27 AM CDT Good Atnunez MD LAB - POINT OF CARE ORDERABLES [address] [address], [place] [phone] * T4 FREE (11/13/2022 2:10 AM CDT) [facility] T4 Free 1.1 0.7 - 1.5 ng/dL 11/13/2022 4:05 AM CDT [facility] Blood BLOOD SPECIMEN / Unknown Lab Venipuncture / Unknown 11/13/2022 2:10 AM CDT 11/13/2022 2:44 AM CDT Good Antunez MD LAB - CHEMISTRY ORDE RABLES [address] [address], [place] [phone] * (ABNORMAL) HEPATIC FUNCTION PANEL (11/13/2022 2:10 AM CDT) [facility] Protein Total 6.5 6.0 - 8.3 g/dL 023 3:16 AM CDT [facility] Albumin 2.4(L) 3.4 - 5.0 g/dL 11/13/2022 3:16 AM CDT [facility] Bilirubin Total 0.3 0.2 - 1.2 mg/dL 06/2022 3:16 AM CDT [facility] Bilirubin Conjugated 0.1 0.1 - 0.5 mg/dL 11/13/2022 3:16 AM T [facility] Bilirubin Unconjugated 0.2 Unconjugated Bilirubin is a calculated value: Reference ranges have not been established. mg/dL 11/13/2022 3:16 AM CDT [facility] Alkaline Phosphatase 77 40 - 150 U/L 11/13/2022 3:16 AM T [facility] ALT 286(H) 5 - 55 U/L 11/13/2022 3:16 AM T [facility] AST 195(H) 5 - 34 U/L 11/13/2022 3:16 AM [facility] Albumin/Globulin Ratio 0.6(L) 1.1 - 2.3 11/13/2022 3:16 AM T [facility] Blood BLOOD SPECIMEN / Unknown Lab Venipuncture / Unknown 11/13/2022 2:10 AM CDT 11/13/2022 2:44 AM CDT Good Antunez MD LAB - CHEMISTRY B[place]NA BLACKMAN [address] [address], [facility] [phone] * PHOSPHORUS BLOOD (11/13/2022 2:10 AM CDT) Phosphorus 3.9 2.9 - 5.1 mg/dL 11/13/2022 3:16 AM CDT [facility] Blood BLOOD SPECIMEN / Unknown Lab Venipuncture / Unknown 11/13/2022 2:10 AM CDT 11/13/2022 2:44 AM CDT Good Antunez MD LAB - CHEMISTRY [place] BLACKMAN [address] [address], [facility] [phone] * MAGNESIUM BLOOD (11/13/2022 2:10 AM CDT) Magnesium 2.2 1.6 - 2.6 mg/dL 11/13/2022 3:14 AM [facility] Blood BLOOD SPECIMEN / Unknown Lab Venipuncture / Unknown 11/13/2022 2:10 AM CDT 11/13/2022 2:44 AM CDT Good Antunez MD LAB - CHEMISTRY BIB[place]NA BLACKMAN [facility] Organization Address City/State/ZIP Co de Phone Number [facility] [address] [place] [address], [facility] [phone] * (ABNORMAL) BASIC METABOLIC PANEL (CALCIUM TOTAL) (11/13/2022 2:10 AM CDT) BUN 11 7 - 26 mg/dL 11/13/2022 3:14 AM [facility] Creatinine 0.54(L) 0.56 - 0.96 mg/dL 11/13/2022 3:14 AM [facility] Sodium 138 136 - 145 mmol/L 11/13/2022 3:14 AM [facility] Potassium 3.9 3.5 - 4.5 mmol/L 11/13/2022 3:14 AM [facility] Chloride 107 98 - 107 mmol/L 11/13/2022 3:14 AM [facility] CO2 23 22 - 29 mmol/L 11/13/2022 3:14 AM [facility] Glucose 105 70 - 115 mg/dL 11/13/2022 3:14 AM [facility] Calcium 8.1(L) 8.4 - 10.2 mg/dL 11/13/2022 3:14 AM [facility] Anion Gap 12 8 - 18 11/13/2022 3:14 AM [facility] BUN/Creatinine Ratio 20 7 - 23 11/13/2022 3:14 AM [facility] Osmolality Calculated 286 270 - 300 mOsm/kg 11/13/2022 3:14 AM [facility] eGFR by CKD-EPI >90 >=90 mL/min/1.7 3 m2 11/13/2022 3:14 AM [facility] Blood BLOOD SPECIMEN / Unknown Lab Venipuncture / Unknown 11/13/2022 2:10 AM CDT 11/13/2022 2:44 AM CDT Good Antunez MD LAB - CHEMISTRY BIB[place]NA BLACKMAN [facility] Organization Address City/State/ZIP Co de Phone Number [facility] [address] [place] [address], [facility] [phone] * (ABNORMAL) CBC W AUTO DIFFERENTIAL (11/13/2022 2:10 AM CDT) WBC 2.7(L) 3.5 - 10.5 10? 3 /uL 11/13/2022 3:11 AM T [facility] RBC 3.36(L) 3.80 - 5.20 10? 6 /uL 11/13/2022 3:11 AM [facility] Hemoglobin 9.8(L) 12.0 - 15.6 g/dL 11/13/2022 3:11 AM [facility] Hematocrit 30.8(L) 35.0 - 45.0 % 11/13/2022 3:11 AM [facility] MCV 91.7 80.7 - 98.3 fL 11/13/2022 3:11 AM [facility] MCH 29.2 26.7 - 34.0 pg 11/13/2022 3:11 AM [facility] MCHC 31.8 30.8 - 35.9 g/dL 11/13/2022 3:11 AM [facility] RDW-SD 49.2 36.0 - 50.0 fL 11/13/2022 3:11 AM [facility] RDW-CV 14.9(H) 11.2 - 14.8 % 11/13/2022 3:11 AM [facility] Platelet Count 334 150 - 400 10? 3 /uL 11/13/2022 3:11 AM [facility] MPV 11.0 9.4 - 12.9 fL 11/13/2022 3:11 AM [facility] nRBC Absolute 0.00 0 10? 3 /uL 11/13/2022 3:11 AM [facility] nRBC Auto 0.0 0 /100 WBC 11/13/2022 3:11 AM [facility] Neutrophils % 28.1(L) 35.0 - 70.0 % 11/13/2022 3:11 AM [facility] Lymphocytes % 45.3(H) 20.0 - 43.0 % 11/13/2022 3:11 AM [facility] Monocytes % 14.6(H) 5.0 - 13.0 % 11/13/2022 3:11 AM [facility] Eosinophils % 9.4(H) 0.0 - 6.0 % 11/13/2022 3:11 AM [facility] Basophil % 0.4 0.0 - 2.0 % 11/13/2022 3:11 AM [facility] Neutrophils Absolute 0.75(L) 1.60 - 7.00 10? 3 /uL 11/13/2022 3:11 AM [facility] Lymphocyte Absolute 1.21 1.10 - 3.90 10? 3 /uL 11/13/2022 3:11 AM [facility] Monocytes Absolute 0.39 0.26 - 1.07 10? 3 /uL 11/13/2022 3:11 AM [facility] Eosinophils Absolute 0.25 0.00 - 0.47 10? 3 /uL 11/13/2022 3:11 AM [facility] Basophils Absolute 0.01 0.00 - 0.08 10? 3 /uL 11/13/2022 3:11 AM [facility] Immature Granulocytes % 2.2(H) 0.0 - 1.0 % 11/13/2022 3:11 AM [facility] Immature Granulocytes Absolute 0.06 11/13/2022 3:11 AM [facility] Blood BLOOD SPECIMEN / Unknown Lab Venipuncture / Unknown 11/13/2022 2:10 AM CDT 11/13/2022 2:44 AM T Good Antunez MD LAB - HEMATOLOGY ORD ERABLES [facility] [address] [place] [address], [facility] [phone] * (ABNORMAL) PTT [facility] (11/13/2022 2:10 AM CDT) APTT 47.9(H) 23.0 - 38.4 Seconds 11/13/2022 2:56 AM CDT [facility] Comment:Suggested therapeuti c range for full dose I.V. unfractionated heparin therapy for venous thromboembolism is 71 to 109 seconds. Blood BLOOD SPECIMEN / Unknown Lab Venipuncture / Unknown 11/13/2022 2:10 AM CDT 11/13/2022 2:39 AM CDT Good Antunez MD LAB - COAGULATION OR DERABLES [address] [address], [facility] [phone] * (ABNORMAL) PT-INR [facility] (11/13/2022 2:10 AM CDT) Pathologist [facility] PT 17.7(H) 12.1 - 14.8 Seconds 11/13/2022 2:56 AM CDT [facility] INR 1.5 See Comment 11/13/2022 2:56 AM CDT [facility] Comment:The suggested therap eutic range for standard coumadin (warfarin) therapy is an INR of 2.0-3.0. For high-risk patients (Mechanical Mitral Valve Prosthesis, etc.), the suggested prophylactic therapeutic range is an INR of 2.5-3.5. Blood BLOOD SPECIMEN / Unknown Lab Venipuncture / Unknown 11/13/2022 2:10 AM CDT 11/13/2022 2:39 AM CDT Emir Vail MD LAB - COAGULATION OR DERABLES [address] [address], [facility] [phone] * (ABNORMAL) TSH REFLEX FREE T4 (11/13/2022 2:10 AM CDT) TSH 5.706(H) 0.350 - 4.940 uIU/mL 11/13/2022 3:33 AM CDT [facility] Blood BLOOD SPECIMEN / Unknown Lab Venipuncture / Unknown 11/13/2022 2:10 AM CDT 11/13/2022 2:44 AM CDT Good Antunez MD LAB - CHEMISTRY ORDE HIRAL Performing Organization Address City/[facility]/ZIP Co de Phone Number [address] [address], [place] [phone] * GLUCOSE - POINT OF CARE (11/12/2022 11:52 PM CDT) Glucose WB/POC 111 70 - 115 mg/dL 11/13/2022 12:06 AM CDT [facility] Specimen Type Cap Fingerstick 2022 12:06 AM CDT [facility] Blood BLOOD SPECIMEN / Unknown 11/12/2022 11:52 PM CDT 11/13/2022 12:06 AM CDT Good Antunze MD LAB - POINT OF CARE ORDERABLES Performing Organization Address City/[facility]/ZIP Co de Phone Number [address] [address], [place] [phone] * XR CHEST 1VW PORTABLE (11/12/2022 8:44 PM CDT) Anatomical Region Laterality Modality Chest Radiographic Irene ging 11/13/2022 10:4 6 AM CDT Narrative 11/13/2022 11:59 AM CDT PROCEDURE: ??XR CHEST 1VW PORTABLE, DATE/TIME OF EXAM: ??11/12/2022 8:45 PM, LOCATION ??[facility] INDICATION: R50.9: Fever, unspecified fever [...] abnormality. Report dictated by Agnes Olmos DO (residential sales). Pepe Ornelas MD have personally reviewed and interpreted this examination/study. > Interpreting Provider: Pepe Gonzalez MD on 11/13/2022 11:59 AM Procedure Note Pepe Gonzalez MD - 11/13/2022 PROCEDURE: XR CHEST 1VW PORTABLE, DATE/TIME OF EXAM: 11/12/2022 8:45 PM, LOCATION [facility] INDICATION: R50.9: Fever, unspecified fever [...] abnormality. Report dictated by Agnes Olmos DO (residential sales). Pepe Ornelas MD have personally reviewed and interpreted this examination/study. > Interpreting Provider: Pepe Gonzalez MD on 11/13/2022 11:59 AM Good Antunez MD DIAGNOSTIC IMAGING O RDERABLES * (ABNORMAL) GLUCOSE - POINT OF CARE (11/12/2022 7:40 PM CDT) Glucose WB/POC 117(H) 70 - 115 mg/dL 11/12/2022 7:43 PM CDT [facility] Specimen Type Cap Fingerstick 2022 7:43 PM CDT [facility] Blood BLOOD SPECIMEN / Unknown 11/12/2022 7:40 PM CDT 11/12/2022 7:43 PM CDT Good Antunez MD LAB - POINT OF CARE ORDERABLES [facility] [address] [place] [address], [facility] [phone] * (ABNORMAL) PTT [facility] (11/12/2022 5:32 AM CDT) APTT 102.7(HH) 23.0 - 38.4 Seconds 11/12/2022 6:42 AM CDT [facility] Comment:Suggested therapeuti c range for full dose I.V. unfractionated heparin therapy for venous thromboembolism is 71 to 109 seconds. Blood BLOOD SPECIMEN / Unknown Lab Venipuncture / Unknown 11/12/2022 5:32 AM CDT 11/12/2022 6:08 AM CDT Good Antunez MD LAB - COAGULATION OR DERABLES Performing Organization Address [facility]/ZIP Co de Phone Number [address] [address], [facility] [phone] * (ABNORMAL) PHOSPHORUS BLOOD (11/12/2022 5:32 AM CDT) Phosphorus 2.5(L) 2.9 - 5.1 mg/dL 11/12/2022 6:45 AM CDT [facility] Blood BLOOD SPECIMEN / Unknown Lab Venipuncture / Unknown 11/12/2022 5:32 AM CDT 11/12/2022 6:16 AM CDT Good Antunez MD LAB - CHEMISTRY BIB[place]NA BLACKMAN Performing Organization Address [facility] Co de Phone Number [address] [address], [place] [phone] * MAGNESIUM BLOOD (11/12/2022 5:32 AM CDT) Magnesium 1.7 1.6 - 2.6 mg/dL 11/12/2022 6:45 AM CDT [facility] Blood BLOOD SPECIMEN / Unknown Lab Venipuncture / Unknown 11/12/2022 5:32 AM CDT 11/12/2022 6:16 AM CDT Good Antunez MD LAB - CHEMISTRY B[place]NA BLACKMAN Performing Organization Address City/[facility]/ZIP Co de Phone Number [facility] [address] [place] [address], [facility] [phone] * (ABNORMAL) BASIC METABOLIC PANEL (CALCIUM TOTAL) (11/12/2022 5:32 AM CDT) BUN 13 7 - 26 mg/dL 11/12/2022 6:45 AM [facility] Creatinine 0.59 0.56 - 0.96 mg/dL 11/12/2022 6:45 AM [facility] Sodium 136 136 - 145 mmol/L 11/12/2022 6:45 AM [facility] Potassium 3.3(L) 3.5 - 4.5 mmol/L 11/12/2022 6:45 AM [facility] Chloride 105 98 - 107 mmol/L 11/12/2022 6:45 AM [facility] CO2 21(L) 22 - 29 mmol/L 11/12/2022 6:45 AM [facility] Glucose 120(H) 70 - 115 mg/dL 11/12/2022 6:45 AM [facility] Calcium 7.8(L) 8.4 - 10.2 mg/dL 11/12/2022 6:45 AM [facility] Anion Gap 13 8 - 18 11/12/2022 6:45 AM [facility] BUN/Creatinine Ratio 22 7 - 23 11/12/2022 6:45 AM [facility] Osmolality Calculated 283 270 - 300 mOsm/kg 11/12/2022 6:45 AM [facility] eGFR by CKD-EPI >90 >=90 mL/min/1.7 3 m2 11/12/2022 6:45 AM [facility] Blood BLOOD SPECIMEN / Unknown Lab Venipuncture / Unknown 11/12/2022 5:32 AM CDT 11/12/2022 6:[address] [facility] Good Antunez MD LAB - CHEMISTRY BIBIANA BLACKMAN [facility] Organization Address City/State/ZIP Co de Phone Number [facility] [address] [place] [phone], [facility] [phone] * (ABNORMAL) CBC W AUTO DIFFERENTIAL (11/12/2022 5:[address] [facility]) WBC 4.8 3.5 - 10.5 10? 3 /uL 11/12/2022 6:27 AM [facility] RBC 3.27(L) 3.80 - 5.20 10? 6 /uL 11/12/2022 6:27 AM [facility] Hemoglobin 9.4(L) 12.0 - 15.6 g/dL 11/12/2022 6:27 AM [facility] Hematocrit 30.2(L) 35.0 - 45.0 % 11/12/2022 6:27 AM [facility] MCV 92.4 80.7 - 98.3 fL 11/12/2022 6:27 AM [facility] MCH 28.7 26.7 - 34.0 pg 11/12/2022 6:27 AM [facility] MCHC 31.1 30.8 - 35.9 g/dL 11/12/2022 6:27 AM [facility] RDW-SD 48.6 36.0 - 50.0 fL 11/12/2022 6:27 AM [facility] RDW-CV 14.6 11.2 - 14.8 % 11/12/2022 6:27 AM [facility] Platelet Count 333 150 - 400 10? 3 /uL 11/12/2022 6:27 AM [facility] MPV 11.1 9.4 - 12.9 fL 11/12/2022 6:27 AM [facility] nRBC Absolute 0.00 0 10? 3 /uL 11/12/2022 6:27 AM [facility] nRBC Auto 0.0 0 /100 WBC 11/12/2022 6:27 AM [facility] Neutrophils % 70.4(H) 35.0 - 70.0 % 11/12/2022 6:27 AM [facility] Lymphocytes % 17.7(L) 20.0 - 43.0 % 11/12/2022 6:27 AM [facility] Monocytes % 4.6(L) 5.0 - 13.0 % 11/12/2022 6:27 AM [facility] Eosinophils % 6.1(H) 0.0 - 6.0 % 11/12/2022 6:27 AM [facility] Basophil % 0.2 0.0 - 2.0 % 11/12/2022 6:27 AM [facility] Neutrophils Absolute 3.37 1.60 - 7.00 10? 3 /uL 11/12/2022 6:27 AM [facility] Lymphocyte Absolute 0.85(L) 1.10 - 3.90 10? 3 /uL 11/12/2022 6:27 AM [facility] Monocytes Absolute 0.22(L) 0.26 - 1.07 10? 3 /uL 11/12/2022 6:27 AM [facility] Eosinophils Absolute 0.29 0.00 - 0.47 10? 3 /uL 11/12/2022 6:27 AM [facility] Basophils Absolute 0.01 0.00 - 0.08 10? 3 /uL 11/12/2022 6:27 AM [facility] Immature Granulocytes % 1.0 0.0 - 1.0 % 11/12/2022 6:27 AM [facility] Immature Granulocytes Absolute 0.05 11/12/2022 6:27 AM [facility] Blood BLOOD SPECIMEN / Unknown Lab Venipuncture / Unknown 11/12/2022 5:32 AM CDT 11/12/2022 6:15 AM CDT Good Antunez MD LAB - HEMATOLOGY ORD ERABLES [facility] [address] [place] [address], [facility] [phone] * (ABNORMAL) PT-INR [facility] (11/12/2022 5:32 AM CDT) PT 22.1(H) 12.1 - 14.8 Seconds 11/12/2022 6:42 AM [facility] INR 2.0 See Comment 11/12/2022 6:42 AM [facility] Comment:The suggested therap eutic range for standard coumadin (warfarin) therapy is an INR of 2.0-3.0. For high-risk patients (Mechanical Mitral Valve Prosthesis, etc.), the suggested prophylactic therapeutic range is an INR of 2.5-3.5. Blood BLOOD SPECIMEN / Unknown Lab Venipuncture / Unknown 11/12/2022 5:32 AM CDT 11/12/2022 6:08 AM CDT Emir Vail MD LAB - COAGULATION OR DERABLES [facility] [address] [place] [address], [facility] [phone] * (ABNORMAL) HEPATIC FUNCTION PANEL (11/12/2022 5:32 AM CDT) Protein Total 6.5 6.0 - 8.3 g/dL 023 6:53 AM [facility] Albumin 2.5(L) 3.4 - 5.0 g/dL 11/12/2022 6:53 AM [facility] [facility] Bilirubin Total 0.3 0.2 - 1.2 mg/dL 05/2022 6:53 AM [facility] Bilirubin Conjugated 0.2 0.1 - 0.5 mg/dL 11/12/2022 6:53 AM [facility] Bilirubin Unconjugated 0.1 Unconjugated Bilirubin is a calculated value: Reference ranges have not been established. mg/dL 11/12/2022 6:53 AM [facility] Alkaline Phosphatase 75 40 - 150 U/L 11/12/2022 6:53 AM [facility] ALT 266(H) 5 - 55 U/L 11/12/2022 6:53 AM [facility] AST 220(H) 5 - 34 U/L 11/12/2022 6:53 AM [facility] Albumin/Globulin Ratio 0.6(L) 1.1 - 2.3 11/12/2022 6:53 AM [facility] Blood BLOOD SPECIMEN / Unknown Lab Venipuncture / Unknown 11/12/2022 5:32 AM CDT 11/12/2022 6:16 AM CDT Good Antunez MD LAB - CHEMISTRY [place] BL[facility]MAN Performing Organization Address City/[facility]/ZIP Co de Phone Number [facility] [address] [place] [address], [place] [phone] * CULTURE BLOOD (11/12/2022 5:32 AM CDT) Pathologist [facility] Culture No growth day 5 ROSELIA 11/17/2022 10:01 AM CDT [facility] MICRO[facility]OLOG[facility] Blood PERIPHERAL BLOOD / Unknown Lab Venipuncture / Unknown 11/12/2022 5:32 AM CDT 11/12/2022 6:09 AM CDT Good Antunez MD LAB - MICROBIOLOGY O RDERABLES Performing Organization Address City/[facility]/ZIP Co de Phone Number [facility] MICRO[facility] [address] [place] [address], [facility] [phone] * (ABNORMAL) GLUCOSE - POINT OF CARE (11/12/2022 3:44 AM CDT) Pathologist [facility] Glucose WB/POC 128(H) 70 - 115 mg/dL 11/12/2022 3:49 AM CDT [facility] Specimen Type Cap Fingerstick 2022 3:49 AM CDT [facility] Blood BLOOD SPECIMEN / Unknown 11/12/2022 3:44 AM CDT 11/12/2022 3:49 AM CDT Good Antunez MD LAB - POINT OF CARE ORDERABLES Performing Organization Address City/[facility]/ZIP Co de Phone Number [facility] [address] [place] [address], [place] [phone] * (ABNORMAL) PTT [facility] (11/11/2022 11:51 PM CDT) APTT 78.8(H) 23.0 - 38.4 Seconds 11/12/2022 12:49 AM CDT [facility] Comment:Suggested therapeuti c range for full dose I.V. unfractionated heparin therapy for venous thromboembolism is 71 to 109 seconds. Blood BLOOD SPECIMEN / Unknown Venipuncture / Unknown 11/11/2022 11:51 PM CDT 11/11/2022 11:59 PM CDT Good Antunez MD LAB - COAGULATION OR DERABLES Performing Organization Address City/[facility]/ZIP Co de Phone Number [address] [address], [place] [phone] * (ABNORMAL) GLUCOSE - POINT OF CARE (11/11/2022 11:33 PM CDT) Glucose WB/POC 129(H) 70 - 115 mg/dL 11/11/2022 11:38 PM CDT [facility] Specimen Type Cap Fingerstick 2022 11:38 PM CDT [facility] Blood BLOOD SPECIMEN / Unknown 11/11/2022 11:33 PM CDT 11/11/2022 11:38 PM CDT Good Antunez MD LAB - POINT OF CARE ORDERABLES Performing Organization Address [facility] Co de Phone Number [address] [address], [place] [phone] * GLUCOSE - POINT OF CARE (11/11/2022 9:25 PM CDT) Glucose WB/POC 95 70 - 115 mg/dL 11/11/2022 9:30 PM CDT [facility] Specimen Type Cap Fingerstick 2022 9:30 PM CDT [facility] Blood BLOOD SPECIMEN / Unknown 11/11/2022 9:25 PM CDT 11/11/2022 9:30 PM CDT Good Antunez MD LAB - POINT OF CARE ORDERABLES Performing Organization Address City/[facility]/ZIP Co de Phone Number [address] [address], [place] [phone] * (ABNORMAL) PTT [facility] (11/11/2022 5:03 PM CDT) APTT 140.8(HH) 23.0 - 38.4 Seconds 11/11/2022 5:47 PM CDT [facility] Comment:Suggested therapeuti c range for full dose I.V. unfractionated heparin therapy for venous thromboembolism is 71 to 109 seconds. Blood BLOOD SPECIMEN / Unknown Venipuncture / Unknown 11/11/2022 5:03 PM CDT 11/11/2022 5:08 PM CDT Good Antunez MD LAB - COAGULATION OR DERABLES Performing Organization Address City/[facility]/ZIP Co de Phone Number [address] [address], [facility] [phone] * PHOSPHORUS BLOOD (11/11/2022 5:03 PM CDT) Phosphorus 3.3 2.9 - 5.1 mg/dL 11/11/2022 5:34 PM CDT [facility] Blood BLOOD SPECIMEN / Unknown Venipuncture / Unknown 11/11/2022 5:03 PM CDT 11/11/2022 5:22 PM CDT Good Antunez MD LAB - CHEMISTRY [place] BLACKMAN Performing Organization Address [facility]/ZIP Co de Phone Number [address] [address], [facility] [phone] * MAGNESIUM BLOOD (11/11/2022 5:03 PM CDT) Magnesium 2.0 1.6 - 2.6 mg/dL 11/11/2022 5:34 PM CDT [facility] Blood BLOOD SPECIMEN / Unknown Venipuncture / Unknown 11/11/2022 5:03 PM CDT 11/11/2022 5:22 PM CDT Good Antunez MD LAB - CHEMISTRY [place] BLACKMAN [facility] [address] [place] [address], [facility] [phone] * (ABNORMAL) BASIC METABOLIC PANEL (CALCIUM TOTAL) (11/11/2022 5:03 PM CDT) BUN 11 7 - 26 mg/dL 11/11/2022 5:34 PM [facility] Creatinine 0.56 0.56 - 0.96 mg/dL 11/11/2022 5:34 PM [facility] Sodium 140 136 - 145 mmol/L 11/11/2022 5:34 PM [facility] Potassium 3.8 3.5 - 4.5 mmol/L 11/11/2022 5:34 PM [facility] Chloride 108(H) 98 - 107 mmol/L 11/11/2022 5:34 PM [facility] CO2 22 22 - 29 mmol/L 11/11/2022 5:34 PM [facility] Glucose 105 70 - 115 mg/dL 11/11/2022 5:34 PM [facility] Calcium 8.4 8.4 - 10.2 mg/dL 11/11/2022 5:34 PM [facility] Anion Gap 14 8 - 18 11/11/2022 5:34 PM [facility] BUN/Creatinine Ratio 20 7 - 23 11/11/2022 5:34 PM [facility] Osmolality Calculated 290 270 - 300 mOsm/kg 11/11/2022 5:34 PM [facility] eGFR by CKD-EPI >90 >=90 mL/min/1.7 3 m2 11/11/2022 5:34 PM [facility] Blood BLOOD SPECIMEN / Unknown Venipuncture / Unknown 11/11/2022 5:03 PM CDT 11/11/2022 5:[address] [facility] Good Antunez MD LAB - CHEMISTRY ORDE HIRAL [facility] Organization Address City/State/ZIP Co de Phone Number [facility] [address] [place] [address], [facility] [phone] * (ABNORMAL) CBC W AUTO DIFFERENTIAL (11/11/2022 5:[address] [facility]) WBC 5.0 3.5 - 10.5 10? 3 /uL 11/11/2022 5:17 PM [facility] RBC 3.41(L) 3.80 - 5.20 10? 6 /uL 11/11/2022 5:17 PM [facility] Hemoglobin 9.9(L) 12.0 - 15.6 g/dL 11/11/2022 5:17 PM [facility] Hematocrit 31.9(L) 35.0 - 45.0 % 11/11/2022 5:17 PM [facility] MCV 93.5 80.7 - 98.3 fL 11/11/2022 5:17 PM [facility] MCH 29.0 26.7 - 34.0 pg 11/11/2022 5:17 PM [facility] MCHC 31.0 30.8 - 35.9 g/dL 11/11/2022 5:17 PM [facility] RDW-SD 49.3 36.0 - 50.0 fL 11/11/2022 5:17 PM [facility] RDW-CV 14.6 11.2 - 14.8 % 11/11/2022 5:17 PM [facility] Platelet Count 332 150 - 400 10? 3 /uL 11/11/2022 5:17 PM [facility] MPV 10.8 9.4 - 12.9 fL 11/11/2022 5:17 PM [facility] nRBC Absolute 0.00 0 10? 3 /uL 11/11/2022 5:17 PM [facility] nRBC Auto 0.0 0 /100 WBC 11/11/2022 5:17 PM [facility] Neutrophils % 64.9 35.0 - 70.0 % 11/11/2022 5:17 PM [facility] Lymphocytes % 23.3 20.0 - 43.0 % 11/11/2022 5:17 PM [facility] Monocytes % 8.2 5.0 - 13.0 % 11/11/2022 5:17 PM [facility] Eosinophils % 2.0 0.0 - 6.0 % 11/11/2022 5:17 PM CDT [facility] Basophil % 0.4 0.0 - 2.0 % 11/11/2022 5:17 PM CDT [facility] Neutrophils Absolute 3.23 1.60 - 7.00 10? 3 /uL 11/11/2022 5:17 PM CDT [facility] Lymphocyte Absolute 1.16 1.10 - 3.90 10? 3 /uL 11/11/2022 5:17 PM CDT [facility] Monocytes Absolute 0.41 0.26 - 1.07 10? 3 /uL 11/11/2022 5:17 PM CDT [facility] Eosinophils Absolute 0.10 0.00 - 0.47 10? 3 /uL 11/11/2022 5:17 PM CDT [facility] Basophils Absolute 0.02 0.00 - 0.08 10? 3 /uL 11/11/2022 5:17 PM CDT [facility] Immature Granulocytes % 1.2(H) 0.0 - 1.0 % 11/11/2022 5:17 PM CDT [facility] Immature Granulocytes Absolute 0.06 11/11/2022 5:17 PM CDT [facility] Blood BLOOD SPECIMEN / Unknown Venipuncture / Unknown 11/11/2022 5:03 PM CDT 11/11/2022 5:11 PM CDT Good Antunez MD LAB - HEMATOLOGY ORD ERABLES [address] [address] [phone] * LACTIC ACID BLOOD REFLEX TO REPEAT (11/11/2022 5:03 PM CDT) Lactic Acid-Stat 1.0 <=2.0 mmol/L 11/11/2022 5:35 PM CDT [facility] Blood BLOOD SPECIMEN / Unknown Venipuncture / Unknown 11/11/2022 5:03 PM CDT 11/11/2022 5:09 PM CDT Good Antunez MD LAB - CHEMISTRY [facility] HIRAL Performing Organization Address [facility]/ZIP Co de Phone Number [address] [address], [facility] [phone] * (ABNORMAL) PTT [facility] (11/11/2022 9:28 AM CDT) APTT 129.8(HH) 23.0 - 38.4 Seconds 11/11/2022 10:30 AM CDT [facility] Comment:Suggested therapeuti c range for full dose I.V. unfractionated heparin therapy for venous thromboembolism is 71 to 109 seconds. Blood BLOOD SPECIMEN / Unknown Venipuncture / Unknown 11/11/2022 9:28 AM CDT 11/11/2022 9:28 AM CDT Good Antunez MD LAB - COAGULATION OR DERABLES Performing Organization Address [facility] Co de Phone Number [address] [address], [facility] [phone] * (ABNORMAL) PT-INR [facility] (11/11/2022 9:28 AM CDT) PT 16.2(H) 12.1 - 14.8 Seconds 11/11/2022 10:30 AM CDT [facility] INR 1.3 See Comment 11/11/2022 10:30 AM T [facility] Comment:The suggested therap eutic range for [...] Organization Address [facility]/ZIP Co de Phone Number [address] [address], [place] [phone] * (ABNORMAL) GLUCOSE - POINT OF CARE (11/11/2022 4:48 AM CDT) Glucose WB/POC 148(H) 70 - 115 mg/dL 11/11/2022 8:15 AM CDT [facility] Specimen Type Cap Fingerstick 2022 8:15 AM CDT [facility] Blood BLOOD SPECIMEN / Unknown 11/11/2022 4:48 AM CDT 11/11/2022 8:15 AM CDT Good Antunez MD LAB - POINT OF CARE ORDERABLES [address] [address], [place] [phone] * (ABNORMAL) GLUCOSE - POINT OF CARE (11/11/2022 12:33 AM CDT) Glucose WB/POC 130(H) 70 - 115 mg/dL 11/11/2022 12:37 AM CDT [facility] Specimen Type Cap Fingerstick 2022 12:37 AM CDT [facility] Blood BLOOD SPECIMEN / Unknown 11/11/2022 12:33 AM CDT 11/11/2022 12:37 AM CDT Good Antunez MD LAB - POINT OF CARE ORDERABLES [address] [address], [place] [phone] * TYPE + SCREEN PANEL (11/10/2022 11:38 PM CDT) Antibody Screen NEG 12:45 AM CDT [facility] ABO Rh B POS 11/11/2022 12:45 AM CDT [facility] Blood Bank BLOOD SPECIMEN / Unknown Lab Venipuncture / Unknown 11/10/2022 11:38 PM CDT 11/10/2022 11:51 PM CDT Good Antunez MD LAB - BLOOD BANK ORD ERABLES [facility] [address] [place] [address], [facility] [phone] * (ABNORMAL) CBC W AUTO DIFFERENTIAL (11/10/2022 11:38 PM CDT) WBC 7.1 3.5 - 10.5 10? 3 /uL 11/11/2022 1:02 AM [facility] RBC 3.22(L) 3.80 - 5.20 10? 6 /uL 11/11/2022 1:02 AM [facility] Hemoglobin 9.5(L) 12.0 - 15.6 g/dL 11/11/2022 1:02 AM [facility] Hematocrit 29.7(L) 35.0 - 45.0 % 11/11/2022 1:02 AM [facility] MCV 92.2 80.7 - 98.3 fL 11/11/2022 1:02 AM [facility] MCH 29.5 26.7 - 34.0 pg 11/11/2022 1:02 AM [facility] MCHC 32.0 30.8 - 35.9 g/dL 11/11/2022 1:02 AM [facility] RDW-SD 48.4 36.0 - 50.0 fL 11/11/2022 1:02 AM [facility] RDW-CV 14.5 11.2 - 14.8 % 11/11/2022 1:02 AM [facility] Platelet Count 297 150 - 400 10? 3 /uL 11/11/2022 1:02 AM [facility] MPV 11.1 9.4 - 12.9 fL 11/11/2022 1:02 AM [facility] nRBC Absolute 0.00 0 10? 3 /uL 11/11/2022 1:02 AM [facility] nRBC Auto 0.0 0 /100 WBC 11/11/2022 1:02 AM [facility] Neutrophils % 85.3(H) 35.0 - 70.0 % 11/11/2022 1:02 AM [facility] Lymphocytes % 10.1(L) 20.0 - 43.0 % 11/11/2022 1:02 AM [facility] Monocytes % 3.0(L) 5.0 - 13.0 % 11/11/2022 1:02 AM [facility] Eosinophils % 0.1 0.0 - 6.0 % 11/11/2022 1:02 AM [facility] Basophil % 0.1 0.0 - 2.0 % 11/11/2022 1:02 AM [facility] Neutrophils Absolute 6.01 1.60 - 7.00 10? 3 /uL 11/11/2022 1:02 AM [facility] Lymphocyte Absolute 0.71(L) 1.10 - 3.90 10? 3 /uL 11/11/2022 1:02 AM [facility] Monocytes Absolute 0.21(L) 0.26 - 1.07 10? 3 /uL 11/11/2022 1:02 AM [facility] Eosinophils Absolute 0.01 0.00 - 0.47 10? 3 /uL 11/11/2022 1:02 AM [facility] Basophils Absolute 0.01 0.00 - 0.08 10? 3 /uL 11/11/2022 1:02 AM [facility] Immature Granulocytes % 1.4(H) 0.0 - 1.0 % 11/11/2022 1:02 AM [facility] Immature Granulocytes Absolute 0.10 11/11/2022 1:02 AM [facility] Blood BLOOD SPECIMEN / Unknown Lab Venipuncture / Unknown 11/10/2022 11:38 PM CDT 11/10/2022 11:50 PM CDT Good Antunez MD LAB - HEMATOLOGY ORD ERABLES [facility] [address] [place] [address], [facility] [phone] * PTT [facility] (11/10/2022 11:38 PM CDT) APTT 36.3 23.0 - 38.4 Seconds 11/11/2022 12:07 AM T [facility] Comment:Suggested therapeuti c range for full dose I.V. unfractionated heparin therapy for venous thromboembolism is 71 to 109 seconds. Blood BLOOD SPECIMEN / Unknown Lab Venipuncture / Unknown 11/10/2022 11:38 PM CDT 11/10/2022 11:56 PM CDT Good Antunez MD LAB - COAGULATION OR DERABLES Performing Organization Address City/[facility]/ZIP Co de Phone Number [facility] [address] [place] [address], [facility] [phone] * (ABNORMAL) PT-INR [facility] (11/10/2022 11:38 PM CDT) [facility] PT 15.6(H) 12.1 - 14.8 Seconds 11/11/2022 12:07 AM T [facility] INR 1.3 See Comment 11/11/2022 12:07 AM [facility] Comment:The suggested therap eutic range for standard coumadin (warfarin) therapy is an INR of 2.0-3.0. For high-risk patients (Mechanical Mitral Valve Prosthesis, etc.), the suggested prophylactic therapeutic range is an INR of 2.5-3.5. Blood BLOOD SPECIMEN / Unknown Lab Venipuncture / Unknown 11/10/2022 11:38 PM CDT 11/10/2022 11:56 PM CDT Good Antunez MD LAB - COAGULATION OR DERABLES Performing Organization Address City/[facility]/ZIP Co de Phone Number [facility] [address] [place] [address], [place] [phone] * (ABNORMAL) GLUCOSE - POINT OF CARE (11/10/2022 11:28 PM CDT) Pathologist [facility] Glucose WB/POC 117(H) 70 - 115 mg/dL 11/10/2022 11:33 PM CDT [facility] Specimen Type Cap Fingerstick 2022 11:33 PM [facility] Blood BLOOD SPECIMEN / Unknown 11/10/2022 11:28 PM CDT 11/10/2022 11:32 PM CDT Good Antunez MD LAB - POINT OF CARE ORDERABLES [facility] [address] [place] [address], [facility] [phone] * (ABNORMAL) CBC W AUTO DIFFERENTIAL (11/10/2022 2:24 AM CDT) WBC 3.6 3.5 - 10.5 10? 3 /uL 11/10/2022 2:57 AM [facility] RBC 3.23(L) 3.80 - 5.20 10? 6 /uL 11/10/2022 2:57 AM [facility] Hemoglobin 9.4(L) 12.0 - 15.6 g/dL 11/10/2022 2:57 AM [facility] Hematocrit 29.4(L) 35.0 - 45.0 % 11/10/2022 2:57 AM [facility] MCV 91.0 80.7 - 98.3 fL 11/10/2022 2:57 AM [facility] MCH 29.1 26.7 - 34.0 pg 11/10/2022 2:57 AM [facility] MCHC 32.0 30.8 - 35.9 g/dL 11/10/2022 2:57 AM [facility] RDW-SD 47.3 36.0 - 50.0 fL 11/10/2022 2:57 AM [facility] RDW-CV 14.3 11.2 - 14.8 % 11/10/2022 2:57 AM [facility] Platelet Count 302 150 - 400 10? 3 /uL 11/10/2022 2:57 AM [facility] MPV 10.9 9.4 - 12.9 fL 11/10/2022 2:57 AM [facility] nRBC Absolute 0.00 0 10? 3 /uL 11/10/2022 2:57 AM [facility] nRBC Auto 0.0 0 /100 WBC 11/10/2022 2:57 AM [facility] Neutrophils % 64.8 35.0 - 70.0 % 11/10/2022 2:57 AM [facility] Lymphocytes % 23.7 20.0 - 43.0 % 11/10/2022 2:57 AM [facility] Monocytes % 8.4 5.0 - 13.0 % 11/10/2022 2:57 AM [facility] Eosinophils % 1.4 0.0 - 6.0 % 11/10/2022 2:57 AM [facility] Basophil % 0.3 0.0 - 2.0 % 11/10/2022 2:57 AM [facility] Neutrophils Absolute 2.32 1.60 - 7.00 10? 3 /uL 11/10/2022 2:57 AM [facility] Lymphocyte Absolute 0.85(L) 1.10 - 3.90 10? 3 /uL 11/10/2022 2:57 AM [facility] Monocytes Absolute 0.30 0.26 - 1.07 10? 3 /uL 11/10/2022 2:57 AM [facility] Eosinophils Absolute 0.05 0.00 - 0.47 10? 3 /uL 11/10/2022 2:57 AM [facility] Basophils Absolute 0.01 0.00 - 0.08 10? 3 /uL 11/10/2022 2:57 AM [facility] Immature Granulocytes % 1.4(H) 0.0 - 1.0 % 11/10/2022 2:57 AM [facility] Immature Granulocytes Absolute 0.05 11/10/2022 2:57 AM [facility] Blood BLOOD SPECIMEN / Unknown Lab Venipuncture / Unknown 11/10/2022 2:24 AM CDT 11/10/2022 2:39 AM T Emir Vail MD LAB - HEMATOLOGY ORD ERABLES [facility] [address] [place] [address], [facility] [phone] * (ABNORMAL) PT-INR [facility] (11/10/2022 2:23 AM CDT) PT 20.5(H) 12.1 - 14.8 Seconds 11/10/2022 2:54 AM [facility] INR 1.8 See Comment 11/10/2022 2:54 AM [facility] Comment:The suggested therap eutic range [...] Organization Address [facility] Co de Phone Number [facility] [address] [place] [address] [phone] * (ABNORMAL) BASIC METABOLIC PANEL (CALCIUM TOTAL) (11/10/2022 2:23 AM CDT) Pathologist [facility] BUN 13 7 - 26 mg/dL 11/10/2022 3:12 AM [facility] Creatinine 0.52(L) 0.56 - 0.96 mg/dL 11/10/2022 3:12 AM [facility] Sodium 136 136 - 145 mmol/L 11/10/2022 3:12 AM [facility] Potassium 3.6 3.5 - 4.5 mmol/L 11/10/2022 3:12 AM [facility] Chloride 105 98 - 107 mmol/L 11/10/2022 3:12 AM [facility] CO2 24 22 - 29 mmol/L 11/10/2022 3:12 AM [facility] Glucose 120(H) 70 - 115 mg/dL 11/10/2022 3:12 AM [facility] Calcium 8.4 8.4 - 10.2 mg/dL 11/10/2022 3:12 AM [facility] Anion Gap 11 8 - 18 11/10/2022 3:12 AM CDT [facility] BUN/Creatinine Ratio 25(H) 7 - 23 11/10/2022 3:12 AM CDT [facility] Osmolality Calculated 283 270 - 300 mOsm/kg 11/10/2022 3:12 AM CDT [facility] eGFR by CKD-EPI >90 >=90 mL/min/1.7 3 m2 11/10/2022 3:12 AM CDT [facility] Blood BLOOD SPECIMEN / Unknown Lab Venipuncture / Unknown 11/10/2022 2:23 AM CDT 11/10/2022 2:39 AM CDT Emir Vail MD LAB - CHEMISTRY [facility] [address] [id number], [facility] [phone] * PHOSPHORUS BLOOD (11/10/2022 2:23 AM CDT) Phosphorus 3.9 2.9 - 5.1 mg/dL 11/10/2022 3:12 AM CDT [facility] Blood BLOOD SPECIMEN / Unknown Lab Venipuncture / Unknown 11/10/2022 2:23 AM CDT 11/10/2022 2:39 AM CDT Emir Vail MD LAB - CHEMISTRY [facility] [address] [place] [id number], [facility] [phone] * MAGNESIUM BLOOD (11/10/2022 2:23 AM CDT) Magnesium 2.0 1.6 - 2.6 mg/dL 11/10/2022 3:12 AM CDT [facility] Blood BLOOD SPECIMEN / Unknown Lab Venipuncture / Unknown 11/10/2022 2:23 AM CDT 11/10/2022 2:39 AM CDT Emir Vail MD LAB - CHEMISTRY [facility] [address] [place] [address], [facility] [phone] * MRI BRAIN WWO CONTRAST (11/09/2022 11:50 [...] DATE/TIME OF EXAM: ??11/09/2022 11:51 PM, LOCATION ??[facility] INDICATION: R50.9: Fever, unspecified fever [...] of the right lateral ventricle and the [id number] midline shift. Extensive susceptibility artifacts along the [...] CONTRAST, DATE/TIME OF EXAM: 11/09/2022 11:51PM, LOCATION [facility] INDICATION: R50.9: Fever, unspecified fever [...] of the right lateral ventricle and the [id number] midline shift. Extensive susceptibility artifacts along the [...] right lateral ventricle.. There is also small [id number] focus along the right temporal lobe (image [...] Protein Total 7.3 6.0 - 8.3 g/dL 7:25 AM [facility] Albumin 2.6(L) 3.4 - 5.0 g/dL 11/09/2022 7:25 AM [facility] Bilirubin Total 0.3 0.2 - 1.2 mg/dL 10/12 7:25 AM [facility] Bilirubin Conjugated 0.1 0.1 - 0.5 mg/dL 11/09/2022 7:25 AM [facility] Bilirubin Unconjugated 0.2 Unconjugated Bilirubin is a calculated value: Reference ranges have not been established. mg/dL 11/09/2022 7:25 AM [facility] Alkaline Phosphatase 73 40 - 150 U/L 11/09/2022 7:25 AM [facility] ALT 77(H) 5 - 55 U/L 11/09/2022 7:25 AM [facility] AST 67(H) 5 - 34 U/L 11/09/2022 7:25 AM [facility] Albumin/Globulin Ratio 0.6(L) 1.1 - 2.3 11/09/2022 7:25 AM [facility] Blood BLOOD SPECIMEN / Unknown Lab Venipuncture / Unknown 11/09/2022 6:54 AM CDT 11/09/2022 7:06 AM CDT Angelica Cruz MD LAB - CHEMISTRY [facility] Organization Address City/State/[facility] de Phone Number [facility] [address] [place] [id number] [phone] * VANCOMYCIN LEVEL TROUGH (11/09/2022 6:54 AM CDT) [facility] Vancomycin Trough 18.8 10.0 - 20.0 ug/mL 11/09/2022 7:24 AM [facility] Blood BLOOD SPECIMEN / Unknown Lab Venipuncture / Unknown 11/09/2022 6:54 AM CDT 11/09/2022 6:57 AM CDT Narrative [facility] - 11/09/2022 7:24 AM CDT See institution protocol. Jaime Drew MD LAB - CHEMISTRY [facility] Performing Organization Address City/[place] Hospital/ZIP Co de Phone Number [address] [address], [facility] [phone] * (ABNORMAL) PT-INR [facility] (11/09/2022 2:37 AM CDT) PT 18.9(H) 12.1 - 14.8 Seconds 11/09/2022 3:05 AM CDT [facility] INR 1.6 See Comment 11/09/2022 3:05 AM T [facility] Comment:The suggested therap eutic range for [...] Organization Address [facility]/ZIP Co de Phone Number [address] [address], [facility] [phone] * (ABNORMAL) BASIC METABOLIC PANEL (CALCIUM TOTAL) (11/08/2022 11:46 PM CDT) BUN 9 7 - 26 mg/dL 11/09/2022 12:23 AM CDT [facility] Creatinine 0.45(L) 0.56 - 0.96 mg/dL 11/09/2022 12:23 AM T [facility] Sodium 141 136 - 145 mmol/L 11/09/2022 12:23 AM T [facility] Potassium 3.9 3.5 - 4.5 mmol/L 11/09/2022 12:23 AM T [facility] Chloride 107 98 - 107 mmol/L 11/09/2022 12:23 AM T [facility] CO2 24 22 - 29 mmol/L 11/09/2022 12:23 AM [facility] Glucose 107 70 - 115 mg/dL 11/09/2022 12:23 AM [facility] Calcium 8.5 8.4 - 10.2 mg/dL 11/09/2022 12:23 AM [facility] Anion Gap 14 8 - 18 11/09/2022 12:23 AM [facility] BUN/Creatinine Ratio 20 7 - 23 11/09/2022 12:23 AM [facility] Osmolality Calculated 291 270 - 300 mOsm/kg 11/09/2022 12:23 AM [facility] eGFR by CKD-EPI >90 >=90 mL/min/1.7 3 m2 11/09/2022 12:23 AM [facility] Blood BLOOD SPECIMEN / Unknown Lab Venipuncture / Unknown 11/08/2022 11:46 PM CDT 11/08/2022 11:57 PM CDT Emir Vail MD LAB - CHEMISTRY BIBIANA BLACKMAN [facility] Organization Address City/State/ZIP Co de Phone Number [facility] [address] [place] [address], [facility] [phone] * (ABNORMAL) CBC W AUTO DIFFERENTIAL (11/08/2022 11:46 PM CDT) WBC 5.2 3.5 - 10.5 10? 3 /uL 11/09/2022 12:10 AM [facility] RBC 3.59(L) 3.80 - 5.20 10? 6 /uL 11/09/2022 12:10 AM [facility] Hemoglobin 10.4(L) 12.0 - 15.6 g/dL 11/09/2022 12:10 AM [facility] Hematocrit 33.1(L) 35.0 - 45.0 % 11/09/2022 12:10 AM [facility] MCV 92.2 80.7 - 98.3 fL 11/09/2022 12:10 AM [facility] MCH 29.0 26.7 - 34.0 pg 11/09/2022 12:10 AM [facility] MCHC 31.4 30.8 - 35.9 g/dL 11/09/2022 12:10 AM [facility] RDW-SD 48.2 36.0 - 50.0 fL 11/09/2022 12:10 AM [facility] RDW-CV 14.2 11.2 - 14.8 % 11/09/2022 12:10 AM [facility] Platelet Count 360 150 - 400 10? 3 /uL 11/09/2022 12:10 AM [facility] MPV 10.7 9.4 - 12.9 fL 11/09/2022 12:10 AM [facility] nRBC Absolute 0.00 0 10? 3 /uL 11/09/2022 12:10 AM [facility] nRBC Auto 0.0 0 /100 WBC 11/09/2022 12:10 AM [facility] Neutrophils % 58.8 35.0 - 70.0 % 11/09/2022 12:10 AM [facility] Lymphocytes % 24.8 20.0 - 43.0 % 11/09/2022 12:10 AM [facility] Monocytes % 12.1 5.0 - 13.0 % 11/09/2022 12:10 AM [facility] Eosinophils % 2.9 0.0 - 6.0 % 11/09/2022 12:10 AM [facility] Basophil % 0.4 0.0 - 2.0 % 11/09/2022 12:10 AM [facility] Neutrophils Absolute 3.07 1.60 - 7.00 10? 3 /uL 11/09/2022 12:10 AM [facility] Lymphocyte Absolute 1.29 1.10 - 3.90 10? 3 /uL 11/09/2022 12:10 AM [facility] Monocytes Absolute 0.63 0.26 - 1.07 10? 3 /uL 11/09/2022 12:10 AM [facility] Eosinophils Absolute 0.15 0.00 - 0.47 10? 3 /uL 11/09/2022 12:10 AM [facility] Basophils Absolute 0.02 0.00 - 0.08 10? 3 /uL 11/09/2022 12:10 AM CDT [facility] Immature Granulocytes % 1.0 0.0 - 1.0 % 11/09/2022 12:10 AM CDT [facility] Immature Granulocytes Absolute 0.05 11/09/2022 12:10 AM CDT [facility] Blood BLOOD SPECIMEN / Unknown Lab Venipuncture / Unknown 11/08/2022 11:46 PM CDT 11/08/2022 11:57 PM CDT Emir Vail MD LAB - HEMATOLOGY ORD ERAJESSE [address] [address], [place] [phone] * PHOSPHORUS BLOOD (11/08/2022 11:46 PM CDT) Phosphorus 3.8 2.9 - 5.1 mg/dL 11/09/2022 12:23 AM CDT [facility] Blood BLOOD SPECIMEN / Unknown Lab Venipuncture / Unknown 11/08/2022 11:46 PM CDT 11/08/2022 11:57 PM CDT Emir Vail MD LAB - CHEMISTRY BIBIANA BLACKMAN Performing Organization Address City/[facility]/ZIP Co de Phone Number [address] [address], [place] [phone] * MAGNESIUM BLOOD (11/08/2022 11:46 PM CDT) Magnesium 2.0 1.6 - 2.6 mg/dL 11/09/2022 12:23 AM CDT [facility] Blood BLOOD SPECIMEN / Unknown Lab Venipuncture / Unknown 11/08/2022 11:46 PM CDT 11/08/2022 11:57 PM CDT Emir Vail MD LAB - CHEMISTRY BIBAINA BLACKMAN [address] [address], [place] [phone] * VAS BILATERAL VENOUS DUPLEX LE (11/08/2022 [...] VASCULAR LAB ORDERAB LES * (ABNORMAL) PT-INR [facility] (11/08/2022 2:54 AM CDT) PT 18.3(H) 12.1 - 14.8 Seconds 11/08/2022 4:34 AM CDT [facility] INR 1.6 See Comment 11/08/2022 4:34 AM CDT [facility] Comment:The suggested therap eutic range for standard coumadin (warfarin) therapy is an INR of 2.0-3.0. For high-risk patients (Mechanical Mitral Valve Prosthesis, etc.), the suggested prophylactic therapeutic range is an INR of 2.5-3.5. Blood BLOOD SPECIMEN / Unknown Lab Venipuncture / Unknown 11/08/2022 2:54 AM CDT 11/08/2022 3:41 AM CDT Emir Vail MD LAB - COAGULATION OR DERABLES [facility] [address] [place] [address], [facility] [phone] * (ABNORMAL) BASIC METABOLIC PANEL (CALCIUM TOTAL) (11/07/2022 10:34 PM CDT) BUN 8 7 - 26 mg/dL 11/08/2022 12:05 AM [facility] Creatinine 0.53(L) 0.56 - 0.96 mg/dL 11/08/2022 12:05 AM [facility] Sodium 141 136 - 145 mmol/L 11/08/2022 12:05 AM [facility] Potassium 3.6 3.5 - 4.5 mmol/L 11/08/2022 12:05 AM [facility] Chloride 108(H) 98 - 107 mmol/L 11/08/2022 12:05 AM [facility] CO2 22 22 - 29 mmol/L 11/08/2022 12:05 AM [facility] Glucose 107 70 - 115 mg/dL 11/08/2022 12:05 AM [facility] Calcium 8.6 8.4 - 10.2 mg/dL 11/08/2022 12:05 AM [facility] Anion Gap 15 8 - 18 11/08/2022 12:05 AM [facility] BUN/Creatinine Ratio 15 7 - 23 11/08/2022 12:05 AM [facility] Osmolality Calculated 291 270 - 300 mOsm/kg 11/08/2022 12:05 AM [facility] eGFR by CKD-EPI >90 >=90 mL/min/1.7 3 m2 11/08/2022 12:05 AM [facility] Blood BLOOD SPECIMEN / Unknown Lab Venipuncture / Unknown 11/07/2022 10:34 PM CDT 11/07/2022 11:34 PM CDT Emir Vail MD LAB - CHEMISTRY BIBIANA BLACKMAN [facility] Organization Address City/State/ZIP Co de Phone Number [facility] [address] [place] [address], [facility] [phone] * (ABNORMAL) CBC W AUTO DIFFERENTIAL (11/07/2022 10:34 PM CDT) WBC 4.7 3.5 - 10.5 10? 3 /uL 11/07/2022 11:51 PM [facility] RBC 3.18(L) 3.80 - 5.20 10? 6 /uL 11/07/2022 11:51 PM [facility] Hemoglobin 9.2(L) 12.0 - 15.6 g/dL 11/07/2022 11:51 PM [facility] Hematocrit 29.5(L) 35.0 - 45.0 % 11/07/2022 11:51 PM [facility] MCV 92.8 80.7 - 98.3 fL 11/07/2022 11:51 PM [facility] MCH 28.9 26.7 - 34.0 pg 11/07/2022 11:51 PM [facility] MCHC 31.2 30.8 - 35.9 g/dL 11/07/2022 11:51 PM [facility] RDW-SD 47.8 36.0 - 50.0 fL 11/07/2022 11:51 PM [facility] RDW-CV 14.1 11.2 - 14.8 % 11/07/2022 11:51 PM [facility] Platelet Count 325 150 - 400 10? 3 /uL 11/07/2022 11:51 PM [facility] MPV 11.0 9.4 - 12.9 fL 11/07/2022 11:51 PM [facility] nRBC Absolute 0.00 0 10? 3 /uL 11/07/2022 11:51 PM [facility] nRBC Auto 0.0 0 /100 WBC 11/07/2022 11:51 PM [facility] Neutrophils % 57.5 35.0 - 70.0 % 11/07/2022 11:51 PM [facility] Lymphocytes % 29.9 20.0 - 43.0 % 11/07/2022 11:51 PM [facility] Monocytes % 10.7 5.0 - 13.0 % 11/07/2022 11:51 PM [facility] Eosinophils % 1.3 0.0 - 6.0 % 11/07/2022 11:51 PM [facility] Basophil % 0.2 0.0 - 2.0 % 11/07/2022 11:51 PM CDT [facility] Neutrophils Absolute 2.70 1.60 - 7.00 10? 3 /uL 11/07/2022 11:51 PM CDT [facility] Lymphocyte Absolute 1.40 1.10 - 3.90 10? 3 /uL 11/07/2022 11:51 PM CDT [facility] Monocytes Absolute 0.50 0.26 - 1.07 10? 3 /uL 11/07/2022 11:51 PM CDT [facility] Eosinophils Absolute 0.06 0.00 - 0.47 10? 3 /uL 11/07/2022 11:51 PM CDT [facility] Basophils Absolute 0.01 0.00 - 0.08 10? 3 /uL 11/07/2022 11:51 PM CDT [facility] Immature Granulocytes % 0.4 0.0 - 1.0 % 11/07/2022 11:51 PM CDT [facility] Immature Granulocytes Absolute 0.02 11/07/2022 11:51 PM CDT [facility] Blood BLOOD SPECIMEN / Unknown Lab Venipuncture / Unknown 11/07/2022 10:34 PM CDT 11/07/2022 11:34 PM CDT Emir Vail MD LAB - HEMATOLOGY ORD JINBLES [address] [address], [facility] [phone] * PHOSPHORUS BLOOD (11/07/2022 10:34 PM CDT) Phosphorus 4.3 2.9 - 5.1 mg/dL 11/08/2022 12:05 AM CDT [facility] Blood BLOOD SPECIMEN / Unknown Lab Venipuncture / Unknown 11/07/2022 10:34 PM CDT 11/07/2022 11:34 PM CDT Emir Vail MD LAB - CHEMISTRY ORDDanyelle BLACKMAN [address] [address], [place] [phone] * (ABNORMAL) MAGNESIUM BLOOD (11/07/2022 10:34 PM CDT) Magnesium 2.8(H) 1.6 - 2.6 mg/dL 11/08/2022 12:05 AM CDT [facility] Blood BLOOD SPECIMEN / Unknown Lab Venipuncture / Unknown 11/07/2022 10:34 PM CDT 11/07/2022 11:34 PM CDT Emir Vail MD LAB - CHEMISTRY ORDE HIRAL [facility] [address] [place] [address], [facility] [phone] * CT ANGIO CHEST PULM EMBOLISM (11/07/2022 5:22 PM CDT) Anatomical Region Laterality Modality Chest Computed Tomogra phy 11/07/2022 5:34 PM CDT Impressions 11/07/2022 10:30 PM CDT Impression: 1.No evidence of acute pulmonary embolism. There is no radiographic evidence of right heart strain. 2.No other acute process within the chest. > Dictated by Tim Major MD (residential sales). I, Alexx Lopez have personally reviewed and interpreted this examination/study. > Interpreting Provider: Alexx Lopez on 11/07/2022 10:30 PM Narrative 11/07/2022 10:30 PM CDT PROCEDURE: ??CT ANGIO CHEST PULM EMBOLISM, DATE/TIME OF EXAM: ??11/07/2022 5:25 PM, LOCATION ??[facility] INDICATION: R50.9: Fever, unspecified fever [...] DATE/TIME OF EXAM: 11/07/2022 5:25 PM, LOCATION [facility] INDICATION: R50.9: Fever, unspecified fever [...] chest. > Dictated by Tim Major MD (residential sales). IAlexx have personally reviewed and interpreted this examination/study. > Interpreting Provider: Alexx Lopez on 11/07/2022 10:30 PM Jaime Drew MD CT ORDERABLES * (ABNORMAL) PT-INR [facility] (11/07/2022 3:05 AM CDT) PT 18.4(H) 12.1 - 14.8 Seconds 11/07/2022 4:26 AM CDT [facility] INR 1.6 See Comment 11/07/2022 4:26 AM CDT [facility] Comment:The suggested therap eutic range for standard coumadin (warfarin) therapy is an INR of 2.0-3.0. For high-risk patients (Mechanical Mitral Valve Prosthesis, etc.), the suggested prophylactic therapeutic range is an INR of 2.5-3.5. Blood BLOOD SPECIMEN / Unknown Lab Venipuncture / Unknown 11/07/2022 3:05 AM CDT 11/07/2022 3:51 AM CDT Emir Vail MD LAB - COAGULATION OR DERABLES Performing Organization Address City/[facility]/ZIP Co de Phone Number [address] [address], [place] [phone] * (ABNORMAL) PTT [facility] (11/06/2022 11:12 PM CDT) Pathologist [facility] APTT 63.4(H) 23.0 - 38.4 Seconds 11/07/2022 12:00 AM CDT [facility] Comment:Suggested therapeuti c range for full dose I.V. unfractionated heparin therapy for venous thromboembolism is 71 to 109 seconds. Blood BLOOD SPECIMEN / Unknown Lab Venipuncture / Unknown 11/06/2022 11:12 PM CDT 11/06/2022 11:42 PM CDT Jaime Drew MD LAB - COAGULATION OR DERABLES Performing Organization Address City/[facility]/ZIP Co de Phone Number [address] [address], [place] [phone] * (ABNORMAL) BASIC METABOLIC PANEL (CALCIUM TOTAL) (11/06/2022 11:12 PM CDT) Pathologist [facility] BUN 8 7 - 26 mg/dL 11/07/2022 12:13 AM [facility] Creatinine 0.46(L) 0.56 - 0.96 mg/dL 11/07/2022 12:13 AM [facility] Sodium 140 136 - 145 mmol/L 11/07/2022 12:13 AM [facility] Potassium 3.6 3.5 - 4.5 mmol/L 11/07/2022 12:13 AM [facility] Chloride 108(H) 98 - 107 mmol/L 11/07/2022 12:13 AM [facility] CO2 22 22 - 29 mmol/L 11/07/2022 12:13 AM [facility] Glucose 107 70 - 115 mg/dL 11/07/2022 12:13 AM [facility] Calcium 8.5 8.4 - 10.2 mg/dL 11/07/2022 12:13 AM [facility] Anion Gap 14 8 - 18 11/07/2022 12:13 AM [facility] BUN/Creatinine Ratio 17 7 - 23 11/07/2022 12:13 AM [facility] Osmolality Calculated 289 270 - 300 mOsm/kg 11/07/2022 12:13 AM [facility] eGFR by CKD-EPI >90 >=90 mL/min/1.7 3 m2 11/07/2022 12:13 AM [facility] Blood BLOOD SPECIMEN / Unknown Lab Venipuncture / Unknown 11/06/2022 11:12 PM CDT 11/06/2022 11:44 PM CDT Emir Vail MD LAB - CHEMISTRY BIBIANA BLACKMAN [facility] Organization Address City/State/ZIP Co de Phone Number [facility] [address] [place] [address], [facility] [phone] * (ABNORMAL) CBC W AUTO DIFFERENTIAL (11/06/2022 11:12 PM CDT) Pathologist [facility] WBC 4.7 3.5 - 10.5 10? 3 /uL 11/06/2022 11:51 PM [facility] RBC 3.20(L) 3.80 - 5.20 10? 6 /uL 11/06/2022 11:51 PM [facility] Hemoglobin 9.3(L) 12.0 - 15.6 g/dL 11/06/2022 11:51 PM [facility] Hematocrit 29.5(L) 35.0 - 45.0 % 11/06/2022 11:51 PM [facility] MCV 92.2 80.7 - 98.3 fL 11/06/2022 11:51 PM [facility] MCH 29.1 26.7 - 34.0 pg 11/06/2022 11:51 PM [facility] MCHC 31.5 30.8 - 35.9 g/dL 11/06/2022 11:51 PM [facility] RDW-SD 47.7 36.0 - 50.0 fL 11/06/2022 11:51 PM [facility] RDW-CV 14.1 11.2 - 14.8 % 11/06/2022 11:51 PM [facility] Platelet Count 195 150 - 400 10? 3 /uL 11/06/2022 11:51 PM [facility] MPV 11.8 9.4 - 12.9 fL 11/06/2022 11:51 PM [facility] nRBC Absolute 0.00 0 10? 3 /uL 11/06/2022 11:51 PM [facility] nRBC Auto 0.0 0 /100 WBC 11/06/2022 11:51 PM [facility] Neutrophils % 47.0 35.0 - 70.0 % 11/06/2022 11:51 PM [facility] Lymphocytes % 36.7 20.0 - 43.0 % 11/06/2022 11:51 PM [facility] Monocytes % 11.9 5.0 - 13.0 % 11/06/2022 11:51 PM [facility] Eosinophils % 3.2 0.0 - 6.0 % 11/06/2022 11:51 PM [facility] Basophil % 0.4 0.0 - 2.0 % 11/06/2022 11:51 PM [facility] Neutrophils Absolute 2.21 1.60 - 7.00 10? 3 /uL 11/06/2022 11:51 PM CDT [facility] Lymphocyte Absolute 1.73 1.10 - 3.90 10? 3 /uL 11/06/2022 11:51 PM CDT [facility] Monocytes Absolute 0.56 0.26 - 1.07 10? 3 /uL 11/06/2022 11:51 PM CDT [facility] Eosinophils Absolute 0.15 0.00 - 0.47 10? 3 /uL 11/06/2022 11:51 PM CDT [facility] Basophils Absolute 0.02 0.00 - 0.08 10? 3 /uL 11/06/2022 11:51 PM CDT [facility] Immature Granulocytes % 0.8 0.0 - 1.0 % 11/06/2022 11:51 PM CDT [facility] Immature Granulocytes Absolute 0.04 11/06/2022 11:51 PM CDT [facility] Blood BLOOD SPECIMEN / Unknown Lab Venipuncture / Unknown 11/06/2022 11:12 PM CDT 11/06/2022 11:44 PM CDT Emir Vail MD LAB - HEMATOLOGY ORD DIMAS [address] [address], [facility] [phone] * PHOSPHORUS BLOOD (11/06/2022 11:12 PM CDT) Phosphorus 4.3 2.9 - 5.1 mg/dL 11/07/2022 12:13 AM CDT [facility] Blood BLOOD SPECIMEN / Unknown Lab Venipuncture / Unknown 11/06/2022 11:12 PM CDT 11/06/2022 11:44 PM CDT Emir Vail MD LAB - CHEMISTRY ORDE HIRAL [address] [address], [place] [phone] * MAGNESIUM BLOOD (11/06/2022 11:12 PM CDT) Magnesium 2.0 1.6 - 2.6 mg/dL 11/07/2022 12:13 AM CDT [facility] Blood BLOOD SPECIMEN / Unknown Lab Venipuncture / Unknown 11/06/2022 11:12 PM CDT 11/06/2022 11:44 PM CDT Emir Vail MD LAB - CHEMISTRY ORDDanyelle BLACKMAN [facility] [address] [place] [address], [place] [phone] * (ABNORMAL) PTT [facility] (11/06/2022 6:30 PM CDT) Pathologist [facility] APTT 68.6(H) 23.0 - 38.4 Seconds 11/06/2022 7:03 PM CDT [facility] Comment:Suggested therapeuti c range for full dose I.V. unfractionated heparin therapy for venous thromboembolism is 71 to 109 seconds. Blood BLOOD SPECIMEN / Unknown Lab Venipuncture / Unknown 11/06/2022 6:30 PM CDT 11/06/2022 6:33 PM CDT Jaime Drew MD LAB - COAGULATION OR DERABLES Performing Organization Address City/[facility]/ZIP Co de Phone Number [facility] [address] [place] [address], [place] [phone] * ECHO COMPLETE W CONTRAST (11/06/2022 1:49 PM CDT) BSA [id number] m2 [facility] CV FUJ I PACS LV [...] PACS MV DT 168 ms [facility] CV [facility] I PACS MV E' septal arianna 10.702 cm/s [facility] CV FUJI PACS MV A duration 122 ms [facility] CV FUJI PACS MV E/e' septal 9.596 [facility] C V FUJI PACS MV E/e' lateral 7.262 [facility] pk arianna 224.0 cm/s [facility] CV [facility] I PACS LVOT pk arianna 0.91 m/s [facility] CV F UJI PACS LVOT mn arianna 0.54 m/s [facility] CV F UJI PACS LVOT mn grad 1.4 mmHg [facility] CV FUJI PACS LVOT Cardiac Output 4.588 l/min [facility] CV FUJI PACS LVOT Cardiac Index 2.17 l/min/m2 [facility] CV FUJI PACS LA vol BP A-L 54.925 mL [facility] RV-mahmood basal diam 3.2 2.5 - 4.1 cm [facility]-mahmood longitudinal diam 8.8 5.9 - 8.3 cm [facility] RVIDd 3.0 cm [facility] CV [facility] I PACS RVOT VTI 17.595 cm [facility] CV [facility] I PACS TAPSE 2.324 1.7 cm [facility] CV [facility] I PACS RVOT pk arianna 0.85 m/s [facility] CV F UJI PACS RA area 19.252 cm2 [facility] CV [facility] I PACS AV mn grad 5 mmHg [...] HR 153 [facility] CV FUJ I PACS [id number] 6.938 cm SSM CV FUJ I PACS [id number] 6.869 cm [facility] CV FUJ I PACS [...] - 34 mL/m2 [facility] CV FUJI PACS RV-mahomod mid diam 3.0 1.9 - 3.5 cm [...] CV FUJ I PACS TV pk arianna [id number] cm/s [facility] CV FUJI PACS TV mn [...] Drew MD ECHO CUPID * (ABNORMAL) PTT [facility] (11/06/2022 7:40 AM CDT) APTT 97.1(H) 23.0 - 38.4 Seconds 11/06/2022 8:29 AM CDT [facility] Comment:Suggested therapeuti c range for full dose I.V. unfractionated heparin therapy for venous thromboembolism is 71 to 109 seconds. Blood BLOOD SPECIMEN / Unknown Lab Venipuncture / Unknown 11/06/2022 7:40 AM CDT 11/06/2022 8:12 AM CDT Jaime Drew MD LAB - COAGULATION OR DERABLES [facility] [address] [place] [id number], [facility] [phone] * (ABNORMAL) PT-INR [facility] (11/06/2022 1:36 AM CDT) PT 17.1(H) 12.1 - 14.8 Seconds 11/06/2022 1:58 AM CDT [facility] INR 1.4 See Comment 11/06/2022 1:58 AM CDT [facility] Comment:The suggested therap eutic range for [...] Organization Address [facility] Co de Phone Number [address] [phone], [facility] [phone] * (ABNORMAL) PTT [facility] (11/06/2022 1:36 AM CDT) APTT 100.4(HH) 23.0 - 38.4 Seconds 11/06/2022 1:58 AM T [facility] Comment:Suggested therapeuti c range for full dose I.V. unfractionated heparin therapy for venous thromboembolism is 71 to 109 seconds. Blood BLOOD SPECIMEN / Unknown Venipuncture / Unknown 11/06/2022 1:36 AM CDT 11/06/2022 1:39 AM CDT Jaime Drew MD LAB - COAGULATION OR DERABLES Performing Organization Address [facility] Co de Phone Number [address] [phone], [facility] [phone] * (ABNORMAL) BASIC METABOLIC PANEL (CALCIUM TOTAL) (11/06/2022 1:36 AM CDT) BUN 8 7 - 26 mg/dL 11/06/2022 2:10 AM T [facility] Creatinine 0.56 0.56 - 0.96 mg/dL 11/06/2022 2:10 AM T [facility] Sodium 139 136 - 145 mmol/L 11/06/2022 2:10 AM T [facility] Potassium 3.5 3.5 - 4.5 mmol/L 11/06/2022 2:10 AM [facility] Chloride 111(H) 98 - 107 mmol/L 11/06/2022 2:10 AM [facility] CO2 21(L) 22 - 29 mmol/L 11/06/2022 2:10 AM [facility] Glucose 144(H) 70 - 115 mg/dL 11/06/2022 2:10 AM [facility] Calcium 8.3(L) 8.4 - 10.2 mg/dL 11/06/2022 2:10 AM [facility] Anion Gap 11 8 - 18 11/06/2022 2:10 AM [facility] BUN/Creatinine Ratio 14 7 - 23 11/06/2022 2:10 AM [facility] Osmolality Calculated 289 270 - 300 mOsm/kg 11/06/2022 2:10 AM [facility] eGFR by CKD-EPI >90 >=90 mL/min/1.7 3 m2 11/06/2022 2:10 AM [facility] Blood BLOOD SPECIMEN / Unknown Venipuncture / Unknown 11/06/2022 1:36 AM CDT 11/06/2022 1:42 AM CDT Emir Vail MD LAB - CHEMISTRY ANKURE [facility] Organization Address City/State/ZIP Co de Phone Number [facility] [address] [place] [address], [facility] [phone] * (ABNORMAL) CBC W AUTO DIFFERENTIAL (11/06/2022 1:36 AM CDT) WBC 6.5 3.5 - 10.5 10? 3 /uL 11/06/2022 1:52 AM T [facility] RBC 3.42(L) 3.80 - 5.20 10? 6 /uL 11/06/2022 1:52 AM [facility] Hemoglobin 10.0(L) 12.0 - 15.6 g/dL 11/06/2022 1:52 AM T [facility] Hematocrit 32.8(L) 35.0 - 45.0 % 11/06/2022 1:52 AM [facility] MCV 95.9 80.7 - 98.3 fL 11/06/2022 1:52 AM [facility] MCH 29.2 26.7 - 34.0 pg 11/06/2022 1:52 AM [facility] MCHC 30.5(L) 30.8 - 35.9 g/dL 11/06/2022 1:52 AM [facility] RDW-SD 49.5 36.0 - 50.0 fL 11/06/2022 1:52 AM [facility] RDW-CV 14.2 11.2 - 14.8 % 11/06/2022 1:52 AM [facility] Platelet Count 155 150 - 400 10? 3 /uL 11/06/2022 1:52 AM [facility] MPV 10.9 9.4 - 12.9 fL 11/06/2022 1:52 AM [facility] nRBC Absolute 0.00 0 10? 3 /uL 11/06/2022 1:52 AM [facility] nRBC Auto 0.0 0 /100 WBC 11/06/2022 1:52 AM [facility] Neutrophils % 71.1(H) 35.0 - 70.0 % 11/06/2022 1:52 AM [facility] Lymphocytes % 19.0(L) 20.0 - 43.0 % 11/06/2022 1:52 AM [facility] Monocytes % 8.0 5.0 - 13.0 % 11/06/2022 1:52 AM [facility] Eosinophils % 0.5 0.0 - 6.0 % 11/06/2022 1:52 AM [facility] Basophil % 0.5 0.0 - 2.0 % 11/06/2022 1:52 AM [facility] Neutrophils Absolute 4.65 1.60 - 7.00 10? 3 /uL 11/06/2022 1:52 AM [facility] Lymphocyte Absolute 1.24 1.10 - 3.90 10? 3 /uL 11/06/2022 1:52 AM [facility] Monocytes Absolute 0.52 0.26 - 1.07 10? 3 /uL 11/06/2022 1:52 AM CDT [facility] Eosinophils Absolute 0.03 0.00 - 0.47 10? 3 /uL 11/06/2022 1:52 AM CDT [facility] Basophils Absolute 0.03 0.00 - 0.08 10? 3 /uL 11/06/2022 1:52 AM CDT [facility] Immature Granulocytes % 0.9 0.0 - 1.0 % 11/06/2022 1:52 AM CDT [facility] Immature Granulocytes Absolute 0.06 11/06/2022 1:52 AM CDT [facility] Blood BLOOD SPECIMEN / Unknown Venipuncture / Unknown 11/06/2022 1:36 AM CDT 11/06/2022 1:42 AM CDT Emir Vail MD LAB - HEMATOLOGY ORD ERABLES [address] [address], [facility] [phone] * PHOSPHORUS BLOOD (11/06/2022 1:36 AM CDT) Phosphorus 3.6 2.9 - 5.1 mg/dL 11/06/2022 2:10 AM CDT [facility] Blood BLOOD SPECIMEN / Unknown Venipuncture / Unknown 11/06/2022 1:36 AM CDT 11/06/2022 1:42 AM CDT Emir Vail MD LAB - CHEMISTRY ORDDanyelle BLACKMAN [address] [address], [facility] [phone] * MAGNESIUM BLOOD (11/06/2022 1:36 AM CDT) Magnesium 2.0 1.6 - 2.6 mg/dL 11/06/2022 2:10 AM CDT [facility] Blood BLOOD SPECIMEN / Unknown Venipuncture / Unknown 11/06/2022 1:36 AM CDT 11/06/2022 1:42 AM CDT Emir Vail MD LAB - [facility]STRY [facility] Performing Organization Address City/[facility]/ZIP Co de Phone Number [address] [address], [facility] [phone] * (ABNORMAL) C-REACTIVE PROTEIN (11/06/2022 1:36 AM CDT) Pathologist [facility] C-Reactive Protein 7.1(H) <=0.5 mg/dL 11/06/2022 2:08 AM CDT [facility] Blood BLOOD SPECIMEN / Unknown Venipuncture / Unknown 11/06/2022 1:36 AM CDT 11/06/2022 1:40 AM CDT Jaime Drew MD LAB - CHEMISTRY [place] BLACKMAN Performing Organization Address [facility]/ZIP Co de Phone Number [address] [address], [facility] [phone] * (ABNORMAL) CBC W AUTO DIFFERENTIAL (11/06/2022 1:36 AM CDT) Pathologist [facility] WBC 7.9 3.5 - 10.5 10? 3 /uL 11/06/2022 1:45 AM [facility] RBC 3.28(L) 3.80 - 5.20 10? 6 /uL 11/06/2022 1:45 AM [facility] Hemoglobin 9.7(L) 12.0 - 15.6 g/dL 11/06/2022 1:45 AM [facility] Hematocrit 30.2(L) 35.0 - 45.0 % 11/06/2022 1:45 AM [facility] MCV 92.1 80.7 - 98.3 fL 11/06/2022 1:45 AM T [facility] MCH 29.6 26.7 - 34.0 pg 11/06/2022 1:45 AM [facility] MCHC 32.1 30.8 - 35.9 g/dL 11/06/2022 1:45 AM [facility] RDW-SD 47.8 36.0 - 50.0 fL 11/06/2022 1:45 AM [facility] RDW-CV 14.2 11.2 - 14.8 % 11/06/2022 1:45 AM [facility] Platelet Count 247 150 - 400 10? 3 /uL 11/06/2022 1:45 AM [facility] MPV 10.7 9.4 - 12.9 fL 11/06/2022 1:45 AM [facility] nRBC Absolute 0.00 0 10? 3 /uL 11/06/2022 1:45 AM [facility] nRBC Auto 0.0 0 /100 WBC 11/06/2022 1:45 AM [facility] Neutrophils % 70.9(H) 35.0 - 70.0 % 11/06/2022 1:45 AM [facility] Lymphocytes % 17.4(L) 20.0 - 43.0 % 11/06/2022 1:45 AM [facility] Monocytes % 9.8 5.0 - 13.0 % 11/06/2022 1:45 AM [facility] Eosinophils % 0.4 0.0 - 6.0 % 11/06/2022 1:45 AM [facility] Basophil % 0.4 0.0 - 2.0 % 11/06/2022 1:45 AM [facility] Neutrophils Absolute 5.62 1.60 - 7.00 10? 3 /uL 11/06/2022 1:45 AM [facility] Lymphocyte Absolute 1.38 1.10 - 3.90 10? 3 /uL 11/06/2022 1:45 AM [facility] Monocytes Absolute 0.78 0.26 - 1.07 10? 3 /uL 11/06/2022 1:45 AM [facility] Eosinophils Absolute 0.03 0.00 - 0.47 10? 3 /uL 11/06/2022 1:45 AM [facility] Basophils Absolute 0.03 0.00 - 0.08 10? 3 /uL 11/06/2022 1:45 AM [facility] Immature Granulocytes % 1.1(H) 0.0 - 1.0 % 11/06/2022 1:45 AM CDT [facility] Immature Granulocytes Absolute 0.09 11/06/2022 1:45 AM CDT [facility] Blood BLOOD SPECIMEN / Unknown Venipuncture / Unknown 11/06/2022 1:36 AM CDT 11/06/2022 1:42 AM CDT Jaime Drew MD LAB - HEMATOLOGY ORD ERABLES Performing Organization Address [facility]/ZIP Co de Phone Number [address] [address], [facility] [phone] * TSH REFLEX FREE T4 (11/06/2022 1:36 AM CDT) Pathologist [facility] TSH 1.682 0.350 - 4.940 uIU/mL 11/06/2022 2:28 AM CDT [facility] Blood BLOOD SPECIMEN / Unknown Venipuncture / Unknown 11/06/2022 1:36 AM CDT 11/06/2022 1:42 AM CDT Jaime Drew MD LAB - CHEMISTRY ORDE RABLES Performing Organization Address [facility] Co de Phone Number [address] [address], [facility] [phone] * (ABNORMAL) D-DIMER (11/06/2022 1:36 AM CDT) D-Dimer Quantitative 2.30(H) <=0.50 mcg/mL FEU 11/06/2022 1:54 AM CDT [facility] Comment: In the absence of clinical [...] - COAGULATION OR DERABLES Performing Organization Address City/State/[facility] Co de Phone Number [address] [address], [facility] [phone] * XR ABDOMEN KUB PORTABLE (11/05/2022 5:28 PM CDT) Anatomical Region Laterality Modality Abdomen Radiographic Irene ging 11/06/2022 7:14 AM CDT Impressions 11/06/2022 10:30 PM CDT IMPRESSION: Non-obstructive bowel gas pattern. Report dictated by Mc Castro MD, (residential sales). I, Pepe Gonzalez MD have personally reviewed and interpreted this examination/study. > Interpreting Provider: Pepe Gonzalez MD on 11/06/2022 10:30 PM Narrative 11/06/2022 10:30 PM CDT PROCEDURE: ??XR ABDOMEN KUB PORTABLE, DATE/TIME OF EXAM: ??11/05/2022 5:28 PM, LOCATION ??[facility] INDICATION: R50.9: Fever, unspecified fever [...] PORTABLE, DATE/TIME OF EXAM: 11/05/2022 5:28PM, LOCATION [facility] INDICATION: R50.9: Fever, unspecified fever [...] pattern. Report dictated by Mc Castro MD, (residential sales). I, Pepe Gonzalez MD have personally reviewed and interpreted this examination/study. > Interpreting Provider: Pepe Gonzalez MD on 11/06/2022 10:30 PM Jaime Drew MD DIAGNOSTIC IMAGING O RDERABLES * PTT [facility] (11/05/2022 4:58 PM CDT) APTT 27.5 23.0 - 38.4 Seconds 11/05/2022 5:29 PM CDT [facility] Comment:Suggested therapeuti c range for full dose I.V. unfractionated heparin therapy for venous thromboembolism is 71 to 109 seconds. Blood BLOOD SPECIMEN / Unknown Venipuncture / Unknown 11/05/2022 4:58 PM CDT 11/05/2022 5:03 PM CDT Jaime Drew MD LAB - COAGULATION OR DERABLES [facility] [address] [place] [address], [place] [phone] * RESPIRATORY PANEL WITH SARS-COV-2 BY PCR (STL) (11/05/2022 1:10 PM CDT) [facility] Adenovirus PCR Not detected Not detected 11/05/2022 [...] 11/05/2022 5:32 PM CDT [facility] Parainfluenza Virus 1 PCR Not detected Not detected 11/05/2022 5:32 PM CDT [facility] Parainfluenza Virus 2 PCR Not detected Not detected 11/05/2022 5:32 PM CDT [facility] Parainfluenza Virus 3 PCR Not detected Not detected 11/05/2022 5:32 PM CDT [facility] Parainfluenza Virus 4 PCR Not detected Not detected 11/05/2022 5:32 PM CDT [facility] Respiratory Syncytial Virus PCR Not detected Not detected 11/05/2022 5:32 PM CDT [facility] Bordetella parapertussis PCR Not detected Not detected 11/05/2022 5:32 PM CDT [facility] Bordetella pertussis PCR Not detected Not detected 11/05/2022 5:32 PM CDT [facility] Chlamydia pneumoniae PCR Not detected Not detected 11/05/2022 5:32 PM CDT [facility] Mycoplasma pneumoniae PCR Not detected Not detected 11/05/2022 5:32 PM CDT [facility] Microbiology SPECIMEN FROM NASOPHARYNGEAL STRUCTURE / Unknown Collection / Unknown 11/05/2022 1:10 PM CDT 11/05/2022 1:41 PM CDT Narrative [facility] - 11/05/2022 5:32 PM CDT This nucleic amplification assay has received FDA authorization via the [employer]. Jaime Drew MD LAB - MICROBIOLOGY O DIONI Performing Organization Address [facility]/ZIP Co de Phone Number [facility] [address] [place] [address], [facility] [phone] * CULTURE URINE (11/05/2022 1:07 PM CDT) Culture Urine No growth (<100 CFU/mL) ROSELIA 11/06/2022 4:17 PM CDT [facility] Urine URINE SPECIMEN OBTAINED BY SINGLE CATHETERIZATION OF URINARY BLADDER / Unknown Collection / Unknown 11/05/2022 1:07 PM CDT 11/05/2022 1:41 PM CDT Jaime Drew MD LAB - MICROBIOLOGY O DIONI Performing Organization Address [facility]/ZIP Co de Phone Number [facility] [address] [place] [address], [facility] [phone] * (ABNORMAL) URINALYSIS REFLEX TO MICROSCOPIC NO CULTURE (11/05/2022 12:54 PM CDT) Color UA Yellow Straw, Yellow 11/05/2022 1:53 PM CDT [facility] Clarity UA Slt Cloudy(A) Clear 11/05/2022 1:53 PM CDT [facility] Specific Alexander UA 1.016 1.005 - 1.030 11/05/2022 1:53 PM CDT [facility] pH UA 7.0 5.0 - 8.0 pH 11/05/2022 1:53 PM CDT [facility] Protein UA Negative Negative 11/05/2022 1:53 PM CDT [facility] Glucose UA Negative Negative 11/05/2022 1:53 PM CDT [facility] Ketone UA Negative Negative 11/05/2022 1:53 PM CDT [facility] Bilirubin UA Negative Negative 11/05/2022 1:53 PM CDT [facility] Blood UA 1+(A) Negative 11/05/2022 1:53 PM CDT [facility] Nitrite UA Negative Negative 11/05/2022 1:53 PM CDT [facility] Leukocyte Esterase Negative Negative 11/05/2022 1:53 PM CDT [facility] Urobilinogen UA Negative Negative mg/dL 11/05/2022 1:53 PM CDT [facility] RBC UA 51-100(A) None Seen, 0-2, 3-5 /HPF 11/05/2022 1:53 PM CDT [facility] WBC UA 6-10(A) None Seen, 0-5 /HPF 11/05/2022 1:53 PM CDT [facility] Bacteria UA Trace(A) None /HPF 11/05/2022 1:53 PM CDT [facility] Squamous Epithelial Cells UA 0-2 None Seen, 0-2, 3-5 /HPF 11/05/2022 1:53 PM CDT [facility] Mucus UA 1+ /LPF 11/05/2022 1:53 PM CDT [facility] Amorphous Crystals Rare(A) None /HPF 11/05/2022 1:53 PM CDT [facility] Urine URINE SPECIMEN OBTAINED BY SINGLE CATHETERIZATION OF URINARY BLADDER / Unknown Collection / Unknown 11/05/2022 12:54 PM CDT 11/05/2022 1:41 PM CDT Narrative [facility] - 11/05/2022 1:53 PM CDT Jaime Drew MD LAB - URINALYSIS ORD ERABLES [facility] [address] [place] [address], [facility] [phone] * (ABNORMAL) CBC W AUTO DIFFERENTIAL (11/05/2022 12:27 PM CDT) WBC 6.9 3.5 - 10.5 10? 3 /uL 11/05/2022 1:02 PM CDT [facility] RBC 3.24(L) 3.80 - 5.20 10? 6 /uL 11/05/2022 1:02 PM [facility] Hemoglobin 9.7(L) 12.0 - 15.6 g/dL 11/05/2022 1:02 [facility] Hematocrit 29.6(L) 35.0 - 45.0 % 11/05/2022 1:02 PM [facility] MCV 91.4 80.7 - 98.3 fL 11/05/2022 1:02 PM [facility] MCH 29.9 26.7 - 34.0 pg 11/05/2022 1:02 PM [facility] MCHC 32.8 30.8 - 35.9 g/dL 11/05/2022 1:02 PM [facility] RDW-SD 47.6 36.0 - 50.0 fL 11/05/2022 1:02 [facility] RDW-CV 14.2 11.2 - 14.8 % 11/05/2022 1:02 PM [facility] Platelet Count 344 150 - 400 10? 3 /uL 11/05/2022 1:02 [facility] MPV 10.3 9.4 - 12.9 fL 11/05/2022 1:02 [facility] nRBC Absolute 0.00 0 10? 3 /uL 11/05/2022 1:02 [facility] nRBC Auto 0.0 0 /100 WBC 11/05/2022 1:02 [facility] Neutrophils % 62.1 35.0 - 70.0 % 11/05/2022 1:02 [facility] Lymphocytes % 22.5 20.0 - 43.0 % 11/05/2022 1:02 [facility] Monocytes % 13.2(H) 5.0 - 13.0 % 11/05/2022 1:02 [facility] Eosinophils % 0.9 0.0 - 6.0 % 11/05/2022 1:02 [facility] Basophil % 0.6 0.0 - 2.0 % 11/05/2022 1:02 [facility] Neutrophils Absolute 4.27 1.60 - 7.00 10? 3 /uL 11/05/2022 1:02 PM [facility] Lymphocyte Absolute 1.55 1.10 - 3.90 10? 3 /uL 11/05/2022 1:02 PM [facility] Monocytes Absolute 0.91 0.26 - 1.07 10? 3 /uL 11/05/2022 1:02 PM [facility] Eosinophils Absolute 0.06 0.00 - 0.47 10? 3 /uL 11/05/2022 1:02 PM [facility] Basophils Absolute 0.04 0.00 - 0.08 10? 3 /uL 11/05/2022 1:02 PM [facility] Immature Granulocytes % 0.7 0.0 - 1.0 % 11/05/2022 1:02 PM [facility] Immature Granulocytes Absolute 0.05 11/05/2022 1:02 PM [facility] Blood BLOOD SPECIMEN / Unknown Venipuncture / Unknown 11/05/2022 12:27 PM CDT 11/05/2022 12:45 PM CDT Emir Vail MD LAB - HEMATOLOGY ORD ERABLES [facility] [address] [place] [address] [phone] * (ABNORMAL) BASIC METABOLIC PANEL (CALCIUM TOTAL) (11/05/2022 11:24 AM CDT) BUN 8 7 - 26 mg/dL 11/05/2022 11:56 AM [facility] Creatinine 0.54(L) 0.56 - 0.96 mg/dL 11/05/2022 11:56 AM [facility] Sodium 139 136 - 145 mmol/L 11/05/2022 11:56 AM [facility] Potassium 3.8 3.5 - 4.5 mmol/L 11/05/2022 11:56 AM [facility] Chloride 104 98 - 107 mmol/L 11/05/2022 11:56 AM [facility] CO2 23 22 - 29 mmol/L 11/05/2022 11:56 AM [facility] Glucose 101 70 - 115 mg/dL 11/05/2022 11:56 AM [facility] Calcium 8.5 8.4 - 10.2 mg/dL 11/05/2022 11:56 AM [facility] Anion Gap 16 8 - 18 11/05/2022 11:56 AM [facility] BUN/Creatinine Ratio 15 7 - 23 11/05/2022 11:56 AM [facility] Osmolality Calculated 286 270 - 300 mOsm/kg 11/05/2022 11:56 AM [facility] eGFR by CKD-EPI >90 >=90 mL/min/1.7 3 m2 11/05/2022 11:56 AM [facility] Blood BLOOD SPECIMEN / Unknown Venipuncture / Unknown 11/05/2022 11:24 AM CDT 11/05/2022 11:30 AM CDT Emir Vail MD LAB - CHEMISTRY ORDDanyelle BLACKMAN [address] [address], [facility] [phone] * PHOSPHORUS BLOOD (11/05/2022 11:24 AM CDT) Phosphorus 3.2 2.9 - 5.1 mg/dL 11/05/2022 11:56 AM T [facility] Blood BLOOD SPECIMEN / Unknown Venipuncture / Unknown 11/05/2022 11:24 AM CDT 11/05/2022 11:30 AM CDT Emir Vail MD LAB - CHEMISTRY [place] BLACKMAN [address] [address], [facility] [phone] * MAGNESIUM BLOOD (11/05/2022 11:24 AM CDT) Magnesium 2.0 1.6 - 2.6 mg/dL 11/05/2022 11:56 AM T [facility] Blood BLOOD SPECIMEN / Unknown Venipuncture / Unknown 11/05/2022 11:24 AM CDT 11/05/2022 11:30 AM CDT Emir Vail MD LAB - CHEMISTRY [place] BLACKMAN Performing Organization Address City/[facility]/ZIP Co de Phone Number [address] [address], [place] [phone] * BLOOD GAS ART+LYTES+METAB+COOX POC NOTIF (11/05/2022 11:16 AM CDT) Comment Notification Label Only - See Separate Report 11/05/2022 2:01 PM CDT [facility] Other MISCELLANEOUS SAMPLES / Unknown 11/05/2022 11:16 AM CDT 11/05/2022 12:52 PM CDT Manuel Ramirez MD LAB - BLOOD GASES ORDERABLES Performing Organization Address [facility]/ZIP Co de Phone Number [address] [address], [place] [phone] * (ABNORMAL) PTT [facility] (11/05/2022 11:15 AM CDT) Pathologist [facility] APTT 48.8(H) 23.0 - 38.4 Seconds 11/05/2022 12:12 PM CDT [facility] Comment:Suggested therapeuti c range for full dose I.V. unfractionated heparin therapy for venous thromboembolism is 71 to 109 seconds. Blood BLOOD SPECIMEN / Unknown Lab Venipuncture / Unknown 11/05/2022 11:15 AM CDT 11/05/2022 11:23 AM CDT Jaime Drew MD LAB - COAGULATION OR DERABLES Performing Organization Address City/[facility]/ZIP Co de Phone Number [address] [address], [place] [phone] * CULTURE BLOOD (11/05/2022 10:54 AM CDT) Pathologist [facility] Culture No growth day 5 ROSELIA 11/10/2022 2:00 PM CDT [facility] Blood PERIPHERAL BLOOD / Unknown Venipuncture / Unknown 11/05/2022 10:54 AM CDT 11/05/2022 11:23 AM CDT Jaime Drew MD LAB - MICROBIOLOGY O RDERABLES [facility] [address] [place] [address], [facility] [phone] * XR CHEST 1VW PORTABLE (11/05/2022 9:37 AM CDT) Anatomical Region Laterality Modality Chest Radiographic Irene ging 11/05/2022 12:2 6 PM CDT Narrative 11/05/2022 2:40 PM CDT PROCEDURE: ??XR CHEST 1VW PORTABLE, DATE/TIME OF EXAM: ??11/05/2022 9:38 AM, LOCATION ??[facility] INDICATION: R50.9: Fever, unspecified fever cause ADDITIONAL CLINICAL INFORMATION: Ordering Provider Reason For Exam: ??consolidation COMPARISON: Chest radiograph 10/29/2022. FINDINGS/IMPRESSION: Previously seen feeding tube has been removed. These no confluent consolidation, pleural effusion, or pneumothorax is noted. The cardiomediastinal silhouette is stable. No acute osseous abnormality is noted. Report dictated by Christopher Tobin MD, MD (residential sales). I, HEATHER FREGOSO MD have personally reviewed and interpreted this examination/study. > Interpreting Provider: HEATHER FRGEOSO MD on 11/05/2022 2:40 PM Procedure Note Heather Fregoso MD - 11/05/2022 PROCEDURE: XR CHEST 1VW PORTABLE, DATE/TIME OF EXAM: 11/05/2022 9:38AM, LOCATION [facility] INDICATION: R50.9: Fever, unspecified fever cause ADDITIONAL CLINICAL INFORMATION: Ordering Provider Reason For Exam: consolidation COMPARISON: Chest radiograph 10/29/2022. FINDINGS/IMPRESSION: Previously seen feeding tube has been removed. These no confluent consolidation, pleural effusion, or pneumothorax is noted. The cardiomediastinal silhouette is stable. No acute osseous abnormality is noted. Report dictated by Christopher Tobin MD, MD (residential sales). I, HEATHER FREGOSO MD have personally reviewed and interpreted this examination/study. > Interpreting Provider: HEATHER FREGOSO MD on 11/05/2022 2:40 PM Jaime Drew MD DIAGNOSTIC IMAGING O RDERABLES * (ABNORMAL) PTT [facility] (11/05/2022 3:50 AM CDT) APTT 77.4(H) 23.0 - 38.4 Seconds 11/05/2022 4:51 AM CDT [facility] Comment:Suggested therapeuti c range for full dose I.V. unfractionated heparin therapy for venous thromboembolism is 71 to 109 seconds. Blood BLOOD SPECIMEN / Unknown Lab Venipuncture / Unknown 11/05/2022 3:50 AM CDT 11/05/2022 4:35 AM CDT Jaime Drew MD LAB - COAGULATION OR DERABLES [facility] [address] [place] [address], [facility] [phone] * (ABNORMAL) PT-INR [facility] (11/05/2022 3:50 AM CDT) PT 15.5(H) 12.1 - 14.8 Seconds 11/05/2022 4:51 AM CDT [facility] INR 1.3 See Comment 11/05/2022 4:51 AM CDT [facility] Comment:The suggested therap eutic range for standard coumadin (warfarin) therapy is an INR of 2.0-3.0. For high-risk patients (Mechanical Mitral Valve Prosthesis, etc.), the suggested prophylactic therapeutic range is an INR of 2.5-3.5. Blood BLOOD SPECIMEN / Unknown Lab Venipuncture / Unknown 11/05/2022 3:50 AM CDT 11/05/2022 4:35 AM CDT Emir Vail MD LAB - COAGULATION OR DERABLES [facility] [address] [place] [address], [facility] [phone] * CT HEAD WO CONTRAST (11/05/2022 12:11 [...] Walter MD CT ORDERABLES * (ABNORMAL) PTT [facility] (11/04/2022 9:28 PM CDT) APTT 53.3(H) 23.0 - 38.4 Seconds 11/04/2022 9:50 PM CDT [facility] Comment:Suggested therapeuti c range for full dose I.V. unfractionated heparin therapy for venous thromboembolism is 71 to 109 seconds. Blood BLOOD SPECIMEN / Unknown Lab Venipuncture / Unknown 11/04/2022 9:28 PM CDT 11/04/2022 9:32 PM CDT Jim Walter MD LAB - COAGULATION O RDERABLES [facility] [address] [place] [id number], [facility] [phone] * (ABNORMAL) BASIC METABOLIC PANEL (CALCIUM TOTAL) (11/04/2022 9:28 PM CDT) Pathologist [facility] BUN 8 7 - 26 mg/dL 11/04/2022 9:57 PM [facility] Creatinine 0.55(L) 0.56 - 0.96 mg/dL 11/04/2022 9:57 PM [facility] Sodium 141 136 - 145 mmol/L 11/04/2022 9:57 PM [facility] Potassium 3.7 3.5 - 4.5 mmol/L 11/04/2022 9:57 PM [facility] Chloride 106 98 - 107 mmol/L 11/04/2022 9:57 PM [facility] CO2 25 22 - 29 mmol/L 11/04/2022 9:57 PM [facility] Glucose 106 70 - 115 mg/dL 11/04/2022 9:57 PM [facility] Calcium 8.3(L) 8.4 - 10.2 mg/dL 11/04/2022 9:57 PM [facility] Anion Gap 14 8 - 18 11/04/2022 9:57 PM [facility] BUN/Creatinine Ratio 15 7 - 23 11/04/2022 9:57 PM [facility] Osmolality Calculated 291 270 - 300 mOsm/kg 11/04/2022 9:57 PM [facility] eGFR by CKD-EPI >90 >=90 mL/min/1.7 3 m2 11/04/2022 9:57 PM [facility] Blood BLOOD SPECIMEN / Unknown Lab Venipuncture / Unknown 11/04/2022 9:28 PM CDT 11/04/2022 9:33 PM CDT Emir Vail MD LAB - CHEMISTRY ANKURE HIRAL [facility] Organization Address City/State/ZIP Co de Phone Number [facility] [address] [place] [address], [facility] [phone] * (ABNORMAL) CBC W AUTO DIFFERENTIAL (11/04/2022 9:28 PM CDT) WBC 8.4 3.5 - 10.5 10? 3 /uL 11/04/2022 9:36 PM [facility] RBC 3.73(L) 3.80 - 5.20 10? 6 /uL 11/04/2022 9:36 PM [facility] Hemoglobin 10.9(L) 12.0 - 15.6 g/dL 11/04/2022 9:36 PM [facility] Hematocrit 34.6(L) 35.0 - 45.0 % 11/04/2022 9:36 PM [facility] MCV 92.8 80.7 - 98.3 fL 11/04/2022 9:36 PM [facility] MCH 29.2 26.7 - 34.0 pg 11/04/2022 9:36 PM [facility] MCHC 31.5 30.8 - 35.9 g/dL 11/04/2022 9:36 PM [facility] RDW-SD 47.6 36.0 - 50.0 fL 11/04/2022 9:36 PM [facility] RDW-CV 14.0 11.2 - 14.8 % 11/04/2022 9:36 PM [facility] Platelet Count 383 150 - 400 10? 3 /uL 11/04/2022 9:36 PM [facility] MPV 9.9 9.4 - 12.9 fL 11/04/2022 9:36 PM [facility] nRBC Absolute 0.00 0 10? 3 /uL 11/04/2022 9:36 PM [facility] nRBC Auto 0.0 0 /100 WBC 11/04/2022 9:36 PM [facility] Neutrophils % 62.2 35.0 - 70.0 % 11/04/2022 9:36 PM [facility] Lymphocytes % 22.7 20.0 - 43.0 % 11/04/2022 9:36 PM [facility] Monocytes % 12.8 5.0 - 13.0 % 11/04/2022 9:36 PM [facility] Eosinophils % 0.7 0.0 - 6.0 % 11/04/2022 9:36 PM [facility] Basophil % 0.6 0.0 - 2.0 % 11/04/2022 9:36 PM [facility] Neutrophils Absolute 5.22 1.60 - 7.00 10? 3 /uL 11/04/2022 9:36 PM [facility] Lymphocyte Absolute 1.90 1.10 - 3.90 10? 3 /uL 11/04/2022 9:36 PM [facility] Monocytes Absolute 1.07 0.26 - 1.07 10? 3 /uL 11/04/2022 9:36 PM [facility] Eosinophils Absolute 0.06 0.00 - 0.47 10? 3 /uL 11/04/2022 9:36 PM [facility] Basophils Absolute 0.05 0.00 - 0.08 10? 3 /uL 11/04/2022 9:36 PM [facility] Immature Granulocytes % 1.0 0.0 - 1.0 % 11/04/2022 9:36 PM [facility] Immature Granulocytes Absolute 0.08 11/04/2022 9:36 PM [facility] Blood BLOOD SPECIMEN / Unknown Lab Venipuncture / Unknown 11/04/2022 9:28 PM CDT 11/04/2022 9:33 PM CDT Emir Vail MD LAB - HEMATOLOGY ANKUR COCHRAN [address] [address], [place] [phone] * PHOSPHORUS BLOOD (11/04/2022 9:28 PM CDT) Phosphorus 3.4 2.9 - 5.1 mg/dL 11/04/2022 9:58 PM CDT [facility] Blood BLOOD SPECIMEN / Unknown Lab Venipuncture / Unknown 11/04/2022 9:28 PM CDT 11/04/2022 9:33 PM CDT Emir Vail MD LAB - CHEMISTRY BIB[facility]NA BLACKMAN Performing Organization Address City/[facility]/ZIP Co de Phone Number [address] [address], [place] [phone] * MAGNESIUM BLOOD (11/04/2022 9:28 PM CDT) Magnesium 2.3 1.6 - 2.6 mg/dL 11/04/2022 9:57 PM CDT [facility] Blood BLOOD SPECIMEN / Unknown Lab Venipuncture / Unknown 11/04/2022 9:28 PM CDT 11/04/2022 9:33 PM CDT Emir Vail MD LAB - CHEMISTRY [facility] BLACKMAN [address] [address], [place] [phone] * (ABNORMAL) PTT [facility] (11/04/2022 4:17 PM CDT) APTT 131.0(HH) 23.0 - 38.4 Seconds 11/04/2022 4:47 PM CDT [facility] Comment:Suggested therapeuti c range for full dose I.V. unfractionated heparin therapy for venous thromboembolism is 71 to 109 seconds. Blood BLOOD SPECIMEN / Unknown Lab Venipuncture / Unknown 11/04/2022 4:17 PM CDT 11/04/2022 4:22 PM CDT Jim Walter MD LAB - COAGULATION O RDERABLES Performing Organization Address City/[facility]/ZIP Co de Phone Number [facility] [address] [place] [address], [place] [phone] * (ABNORMAL) PTT [facility] (11/04/2022 9:31 AM CDT) APTT 53.0(H) 23.0 - 38.4 Seconds 11/04/2022 10:55 AM CDT [facility] Comment:Suggested therapeuti c range for full dose I.V. unfractionated heparin therapy for venous thromboembolism is 71 to 109 seconds. Blood BLOOD SPECIMEN / Unknown Lab Venipuncture / Unknown 11/04/2022 9:31 AM CDT 11/04/2022 10:39 AM CDT Jim Walter MD LAB - COAGULATION O RDERABLES Performing Organization Address [facility]/ZIP Co de Phone Number [address] [address], [place] [phone] * VANCOMYCIN LEVEL TROUGH (11/04/2022 9:31 AM CDT) Vancomycin Trough 15.3 10.0 - 20.0 ug/mL 11/04/2022 11:04 AM CDT [facility] Blood BLOOD SPECIMEN / Unknown Lab Venipuncture / Unknown 11/04/2022 9:31 AM CDT 11/04/2022 10:39 AM CDT Narrative [facility] - 11/04/2022 11:04 AM CDT See institution protocol. Jim Walter MD LAB - CHEMISTRY ORD ERABLES Performing Organization Address City/[facility]/ZIP Co de Phone Number [address] [address], [place] [phone] * PT-INR [facility] (11/04/2022 5:53 AM CDT) PT 14.5 12.1 - 14.8 Seconds 11/04/2022 6:15 AM CDT [facility] INR 1.1 See Comment 11/04/2022 6:15 AM CDT [facility] Comment:The suggested therap eutic range for standard coumadin (warfarin) therapy is an INR of 2.0-3.0. For high-risk patients (Mechanical Mitral Valve Prosthesis, etc.), the suggested prophylactic therapeutic range is an INR of 2.5-3.5. Blood BLOOD SPECIMEN / Unknown Lab Venipuncture / Unknown 11/04/2022 5:53 AM CDT 11/04/2022 5:59 AM CDT Jim Walter MD LAB - COAGULATION O RDERABLES Performing Organization Address City/[facility]/ZIP Co de Phone Number [address] [address], [facility] [phone] * PHOSPHORUS BLOOD (11/04/2022 5:53 AM CDT) Phosphorus 3.8 2.9 - 5.1 mg/dL 11/04/2022 6:34 AM CDT [facility] Blood BLOOD SPECIMEN / Unknown Lab Venipuncture / Unknown 11/04/2022 5:53 AM CDT 11/04/2022 6:05 AM CDT Jim Walter MD LAB - CHEMISTRY ORD ERABLES [address] [address], [facility] [phone] * MAGNESIUM BLOOD (11/04/2022 5:53 AM CDT) Magnesium 2.0 1.6 - 2.6 mg/dL 11/04/2022 6:34 AM CDT [facility] Blood BLOOD SPECIMEN / Unknown Lab Venipuncture / Unknown 11/04/2022 5:53 AM CDT 11/04/2022 6:05 AM CDT Jim Walter MD LAB - CHEMISTRY ORD ERABLES Performing Organization Address City/[facility]/ZIP Co de Phone Number [facility] [address] [place] [address], [facility] [phone] * (ABNORMAL) BASIC METABOLIC PANEL (CALCIUM TOTAL) (11/04/2022 5:53 AM CDT) BUN 9 7 - 26 mg/dL 11/04/2022 6:34 AM [facility] Creatinine 0.56 0.56 - 0.96 mg/dL 11/04/2022 6:34 AM [facility] Sodium 139 136 - 145 mmol/L 11/04/2022 6:34 AM [facility] Potassium 3.6 3.5 - 4.5 mmol/L 11/04/2022 6:34 AM [facility] Chloride 104 98 - 107 mmol/L 11/04/2022 6:34 AM [facility] CO2 25 22 - 29 mmol/L 11/04/2022 6:34 AM [facility] Glucose 133(H) 70 - 115 mg/dL 11/04/2022 6:34 AM [facility] Calcium 8.6 8.4 - 10.2 mg/dL 11/04/2022 6:34 AM [facility] Anion Gap 14 8 - 18 11/04/2022 6:34 AM [facility] BUN/Creatinine Ratio 16 7 - 23 11/04/2022 6:34 AM [facility] Osmolality Calculated 289 270 - 300 mOsm/kg 11/04/2022 6:34 AM [facility] eGFR by CKD-EPI >90 >=90 mL/min/1.7 3 m2 11/04/2022 6:34 AM [facility] Blood BLOOD SPECIMEN / Unknown Lab Venipuncture / Unknown 11/04/2022 5:53 AM CDT 11/04/2022 6:05 AM CDT Jim Walter MD LAB - CHEMISTRY ORD ERABLES Performing Organization Address City/State/[facility] Co de Phone Number [address] [address], [facility] [phone] * (ABNORMAL) PTT [facility] (11/04/2022 5:53 AM CDT) APTT 96.7(H) 23.0 - 38.4 Seconds 11/04/2022 6:15 AM CDT [facility] Comment:Suggested therapeuti c range for full dose I.V. unfractionated heparin therapy for venous thromboembolism is 71 to 109 seconds. Blood BLOOD SPECIMEN / Unknown Lab Venipuncture / Unknown 11/04/2022 5:53 AM CDT 11/04/2022 5:59 AM CDT Jim Walter MD LAB - COAGULATION O RDERABLES Performing Organization Address [facility] Co de Phone Number [address] [address], [facility] [phone] * PT-INR [facility] (11/03/2022 11:53 PM CDT) PT 14.2 12.1 - 14.8 Seconds 11/04/2022 12:45 AM CDT [facility] INR 1.1 See Comment 11/04/2022 12:45 AM CDT [facility] Comment:The suggested therap eutic range for [...] Organization Address [facility]/ZIP Co de Phone Number [address] [address], [facility] [phone] * (ABNORMAL) PTT [facility] (11/03/2022 11:53 PM CDT) APTT 77.9(H) 23.0 - 38.4 Seconds 11/04/2022 12:45 AM CDT [facility] Comment:Suggested therapeuti c range for full dose I.V. unfractionated heparin therapy for venous thromboembolism is 71 to 109 seconds. Blood BLOOD SPECIMEN / Unknown Venipuncture / Unknown 11/03/2022 11:53 PM CDT 11/04/2022 12:00 AM CDT Jim Walter MD LAB - COAGULATION O DIONI Performing Organization Address City/[facility]/ZIP Co de Phone Number [address] [address], [facility] [phone] * (ABNORMAL) PTT [facility] (11/03/2022 4:26 PM CDT) APTT 58.8(H) 23.0 - 38.4 Seconds 11/03/2022 5:58 PM CDT [facility] Comment:Suggested therapeuti c range for full dose I.V. unfractionated heparin therapy for venous thromboembolism is 71 to 109 seconds. Blood BLOOD SPECIMEN / Unknown Lab Venipuncture / Unknown 11/03/2022 4:26 PM CDT 11/03/2022 5:37 PM CDT Jim Walter MD LAB - COAGULATION O DIONI Performing Organization Address City/[facility]/ZIP Co de Phone Number [address] [address], [facility] [phone] * (ABNORMAL) PTT [facility] (11/03/2022 10:48 AM CDT) APTT 84.5(H) 23.0 - 38.4 Seconds 11/03/2022 11:33 AM CDT [facility] Comment:Suggested therapeuti c range for full dose I.V. unfractionated heparin therapy for venous thromboembolism is 71 to 109 seconds. Blood BLOOD SPECIMEN / Unknown Lab Venipuncture / Unknown 11/03/2022 10:48 AM CDT 11/03/2022 10:55 AM CDT Jim Walter MD LAB - COAGULATION O RDERABLES Performing Organization Address City/[facility]/ZIP Co de Phone Number [address] [address], [place] [phone] * (ABNORMAL) GLUCOSE - POINT OF CARE (11/03/2022 5:20 AM CDT) [facility] Glucose WB/POC 126(H) 70 - 115 mg/dL 11/03/2022 4:58 PM CDT [facility] Specimen Type Cap Fingerstick 2022 4:58 PM CDT [facility] Blood BLOOD SPECIMEN / Unknown 11/03/2022 5:20 AM CDT 11/03/2022 4:58 PM CDT Jim Walter MD LAB - POINT OF CARE ORDERABLES Performing Organization Address [facility] Co de Phone Number [address] [address], [place] [phone] * (ABNORMAL) PTT [facility] (11/03/2022 4:49 AM CDT) [facility] APTT 89.3(H) 23.0 - 38.4 Seconds 11/03/2022 5:35 AM CDT [facility] Comment:Suggested therapeuti c range for full dose I.V. unfractionated heparin therapy for venous thromboembolism is 71 to 109 seconds. Blood BLOOD SPECIMEN / Unknown Venipuncture / Unknown 11/03/2022 4:49 AM CDT 11/03/2022 5:04 AM CDT Jim Walter MD LAB - COAGULATION O RDDIMAS Performing Organization Address City/[facility]/ZIP Co de Phone Number [address] [address], [place] [phone] * (ABNORMAL) PT-INR [facility] (11/03/2022 4:49 AM CDT) [facility] PT 15.1(H) 12.1 - 14.8 Seconds 11/03/2022 5:35 AM [facility] INR 1.2 See Comment 11/03/2022 5:35 AM [facility] Comment:The suggested therap eutic range for standard coumadin (warfarin) therapy is an INR of 2.0-3.0. For high-risk patients (Mechanical Mitral Valve Prosthesis, etc.), the suggested prophylactic therapeutic range is an INR of 2.5-3.5. Blood BLOOD SPECIMEN / Unknown Venipuncture / Unknown 11/03/2022 4:49 AM CDT 11/03/2022 5:05 AM CDT Emir Vail MD LAB - COAGULATION OR DERABLES [facility] [address] [place] [address], [facility] [phone] * (ABNORMAL) BASIC METABOLIC PANEL (CALCIUM TOTAL) (11/02/2022 10:21 PM CDT) Pathologist [facility] BUN 11 7 - 26 mg/dL 11/02/2022 11:04 PM [facility] Creatinine 0.55(L) 0.56 - 0.96 mg/dL 11/02/2022 11:04 PM [facility] Sodium 138 136 - 145 mmol/L 11/02/2022 11:04 PM [facility] Potassium 3.9 3.5 - 4.5 mmol/L 11/02/2022 11:04 PM [facility] Chloride 103 98 - 107 mmol/L 11/02/2022 11:04 PM [facility] CO2 23 22 - 29 mmol/L 11/02/2022 11:04 PM [facility] Glucose 101 70 - 115 mg/dL 11/02/2022 11:04 PM [facility] Calcium 8.9 8.4 - 10.2 mg/dL 11/02/2022 11:04 PM [facility] Anion Gap 16 8 - 18 11/02/2022 11:04 PM [facility] BUN/Creatinine Ratio 20 7 - 23 11/02/2022 11:04 PM [facility] Osmolality Calculated 286 270 - 300 mOsm/kg 11/02/2022 11:04 PM [facility] eGFR by CKD-EPI >90 >=90 mL/min/1.7 3 m2 11/02/2022 11:04 PM [facility] Blood BLOOD SPECIMEN / Unknown Venipuncture / Unknown 11/02/2022 10:21 PM CDT 11/02/2022 10:37 PM CDT Emir Vail MD LAB - CHEMISTRY BIB[facility] BLACKMAN [facility] Organization Address City/State/ZIP Co de Phone Number [facility] [address] [place] [address], [facility] [phone] * (ABNORMAL) CBC W AUTO DIFFERENTIAL (11/02/2022 10:21 PM CDT) WBC 13.3(H) 3.5 - 10.5 10? 3 /uL 11/02/2022 10:59 PM [facility] RBC 3.44(L) 3.80 - 5.20 10? 6 /uL 11/02/2022 10:59 PM [facility] Hemoglobin 10.3(L) 12.0 - 15.6 g/dL 11/02/2022 10:59 PM [facility] Hematocrit 32.0(L) 35.0 - 45.0 % 11/02/2022 10:59 PM [facility] MCV 93.0 80.7 - 98.3 fL 11/02/2022 10:59 PM [facility] MCH 29.9 26.7 - 34.0 pg 11/02/2022 10:59 PM [facility] MCHC 32.2 30.8 - 35.9 g/dL 11/02/2022 10:59 PM [facility] RDW-SD 48.5 36.0 - 50.0 fL 11/02/2022 10:59 PM [facility] RDW-CV 14.4 11.2 - 14.8 % 11/02/2022 10:59 PM [facility] Platelet Count 405(H) 150 - 400 10? 3 /uL 11/02/2022 10:59 PM [facility] MPV 10.4 9.4 - 12.9 fL 11/02/2022 10:59 PM [facility] nRBC Absolute 0.00 0 10? 3 /uL 11/02/2022 10:59 PM [facility] nRBC Auto 0.0 0 /100 WBC 11/02/2022 10:59 PM [facility] Neutrophils % 69.8 35.0 - 70.0 % 11/02/2022 10:59 PM [facility] Lymphocytes % 17.3(L) 20.0 - 43.0 % 11/02/2022 10:59 PM [facility] Monocytes % 8.0 5.0 - 13.0 % 11/02/2022 10:59 PM [facility] Eosinophils % 3.4 0.0 - 6.0 % 11/02/2022 10:59 PM [facility] Basophil % 0.5 0.0 - 2.0 % 11/02/2022 10:59 PM [facility] Neutrophils Absolute 9.29(H) 1.60 - 7.00 10? 3 /uL 11/02/2022 10:59 PM [facility] Lymphocyte Absolute 2.30 1.10 - 3.90 10? 3 /uL 11/02/2022 10:59 PM [facility] Monocytes Absolute 1.07 0.26 - 1.07 10? 3 /uL 11/02/2022 10:59 PM [facility] Eosinophils Absolute 0.45 0.00 - 0.47 10? 3 /uL 11/02/2022 10:59 PM [facility] Basophils Absolute 0.06 0.00 - 0.08 10? 3 /uL 11/02/2022 10:59 PM [facility] Immature Granulocytes % 1.0 0.0 - 1.0 % 11/02/2022 10:59 PM [facility] Immature Granulocytes Absolute 0.13 11/02/2022 10:59 PM [facility] Blood BLOOD SPECIMEN / Unknown Venipuncture / Unknown 11/02/2022 10:21 PM CDT 11/02/2022 10:36 PM CDT Emir Vail MD LAB - HEMATOLOGY ANKUR COCHRAN Performing Organization Address City/[facility]/ZIP Co de Phone Number [address] [address], [place] [phone] * PHOSPHORUS BLOOD (11/02/2022 10:21 PM CDT) Phosphorus 4.2 2.9 - 5.1 mg/dL 11/02/2022 11:04 PM CDT [facility] Blood BLOOD SPECIMEN / Unknown Venipuncture / Unknown 11/02/2022 10:21 PM CDT 11/02/2022 10:37 PM CDT Emir Vail MD LAB - CHEMISTRY BIB[facility]NA BLACKMAN Performing Organization Address City/[facility]/ZIP Co de Phone Number [address] [address], [place] [phone] * MAGNESIUM BLOOD (11/02/2022 10:21 PM CDT) Magnesium 1.9 1.6 - 2.6 mg/dL 11/02/2022 11:04 PM CDT [facility] Blood BLOOD SPECIMEN / Unknown Venipuncture / Unknown 11/02/2022 10:21 PM CDT 11/02/2022 10:37 PM CDT Emir Vail MD LAB - CHEMISTRY B[facility]NA BLACKMAN [address] [address], [place] [phone] * (ABNORMAL) PTT [facility] (11/02/2022 10:21 PM CDT) APTT 58.3(H) 23.0 - 38.4 Seconds 11/02/2022 11:01 PM CDT [facility] Comment:Suggested therapeuti c range for full dose I.V. unfractionated heparin therapy for venous thromboembolism is 71 to 109 seconds. Blood BLOOD SPECIMEN / Unknown Venipuncture / Unknown 11/02/2022 10:21 PM CDT 11/02/2022 10:36 PM CDT Jim Walter MD LAB - COAGULATION O DIONI [facility] [address] [place] [address], [place] [phone] * (ABNORMAL) PTT [facility] (11/02/2022 4:37 PM CDT) APTT 69.8(H) 23.0 - 38.4 Seconds 11/02/2022 5:19 PM CDT [facility] Comment:Suggested therapeuti c range for full dose I.V. unfractionated heparin therapy for venous thromboembolism is 71 to 109 seconds. Blood BLOOD SPECIMEN / Unknown Lab Venipuncture / Unknown 11/02/2022 4:37 PM CDT 11/02/2022 4:52 PM CDT Jim Walter MD LAB - COAGULATION O DIONI [facility] [address] [place] [address], [place] [phone] * (ABNORMAL) PTT [facility] (11/02/2022 11:12 AM CDT) APTT 54.9(H) 23.0 - 38.4 Seconds 11/02/2022 11:57 AM CDT [facility] Comment:Suggested therapeuti c range for full dose I.V. unfractionated heparin therapy for venous thromboembolism is 71 to 109 seconds. Blood BLOOD SPECIMEN / Unknown Lab Venipuncture / Unknown 11/02/2022 11:12 AM CDT 11/02/2022 11:32 AM CDT Jim Walter MD LAB - COAGULATION O DIONI [facility] [address] [place] [address], [place] [phone] * VANCOMYCIN LEVEL TROUGH (11/02/2022 9:17 AM CDT) Pathologist [facility] Vancomycin Trough 13.2 10.0 - 20.0 ug/mL 11/02/2022 10:35 AM CDT [facility] Blood BLOOD SPECIMEN / Unknown Venipuncture / Unknown 11/02/2022 9:17 AM CDT 11/02/2022 9:20 AM CDT Narrative [facility] - 11/02/2022 10:35 AM CDT See institution protocol. Dary Garvey MD LAB - CHEMISTRY BIB[facility]NA BLACKMAN Performing Organization Address [facility]/ZIP Co de Phone Number [address] [address], [facility] [phone] * (ABNORMAL) PTT [facility] (11/02/2022 4:45 AM CDT) [facility] APTT 52.5(H) 23.0 - 38.4 Seconds 11/02/2022 5:20 AM CDT [facility] Comment:Suggested therapeuti c range for full dose I.V. unfractionated heparin therapy for venous thromboembolism is 71 to 109 seconds. Blood BLOOD SPECIMEN / Unknown Venipuncture / Unknown 11/02/2022 4:45 AM CDT 11/02/2022 4:59 AM CDT Jim Walter MD LAB - COAGULATION O RDERAJESSE Performing Organization Address [facility]/ZIP Co de Phone Number [address] [address], [place] [phone] * HEPATITIS C AB SCREEN RFLX NAAT QUANT (11/02/2022 4:45 AM CDT) [facility] Hepatitis C Antibody Non-react tiffany Non-reac tive 11/02/2022 5:56 AM CDT [facility] Comment:Hepatitis C Antibody screen indicates no [...] - CHEMISTRY ORD ERABLES Performing Organization Address City/[facility]/ZIP Co de Phone Number [address] [address], [facility] [phone] * (ABNORMAL) HEPATITIS B PANEL (11/02/2022 4:45 AM CDT) Hepatitis B Virus Surface Antibody Reactive(A ) Non-react tiffany 11/02/2022 5:55 AM CDT [facility] Comment: > 12 mIU/mL Hepatitis B surface Antibody (HBsAb). Reactive for HBsAb - individual is considered immune to Hepatitis B Virus infection. Hepatitis B Virus Surface Antigen Non-reacti ve Non-react tiffany 11/02/2022 5:55 AM CDT [facility] Hepatitis B Core Virus Antibody IgM Non-reacti ve Non-react tiffany 11/02/2022 5:55 AM CDT [facility] Blood BLOOD SPECIMEN / Unknown Venipuncture / Unknown 11/02/2022 4:45 AM CDT 11/02/2022 4:56 AM CDT Jim Walter MD LAB - CHEMISTRY ORD ERABLES Performing Organization Address City/[facility]/ZIP Co de Phone Number [address] [address], [facility] [phone] * EXPOSURE HIV (11/02/2022 4:45 AM CDT) HIV Antigen/Antibo dy 1 & 2 Non-reacti ve Non-reacti ve 11/02/2022 5:56 AM CDT [facility] Blood BLOOD SPECIMEN / Unknown Venipuncture / Unknown 11/02/2022 4:45 AM CDT 11/02/2022 4:56 AM CDT Jim Walter MD LAB - CHEMISTRY ORD ERABLES Performing Organization Address [facility] Co de Phone Number [address] [address], [facility] [phone] * (ABNORMAL) PTT [facility] (11/02/2022 1:32 AM CDT) APTT 48.3(H) 23.0 - 38.4 Seconds 11/02/2022 2:53 AM CDT [facility] Comment:Suggested therapeuti c range for full dose I.V. unfractionated heparin therapy for venous thromboembolism is 71 to 109 seconds. Blood BLOOD SPECIMEN / Unknown Lab Venipuncture / Unknown 11/02/2022 1:32 AM CDT 11/02/2022 2:14 AM CDT Jim Walter MD LAB - COAGULATION O RDERABLES Performing Organization Address [facility] Co de Phone Number [address] [address], [place] [phone] * (ABNORMAL) PT-INR [facility] (11/02/2022 1:32 AM CDT) PT 15.1(H) 12.1 - 14.8 Seconds 11/02/2022 2:53 AM CDT [facility] INR 1.2 See Comment 11/02/2022 2:53 AM CDT [facility] Comment:The suggested therap eutic range for [...] Organization Address [facility]/ZIP Co de Phone Number [address] [address], [place] [phone] * (ABNORMAL) BASIC METABOLIC PANEL (CALCIUM TOTAL) (11/02/2022 1:32 AM CDT) Pathologist [facility] BUN 10 7 - 26 mg/dL 11/02/2022 2:44 AM [facility] Creatinine 0.48(L) 0.56 - 0.96 mg/dL 11/02/2022 2:44 AM [facility] Sodium 138 136 - 145 mmol/L 11/02/2022 2:44 AM [facility] Potassium 4.1 3.5 - 4.5 mmol/L 11/02/2022 2:44 AM [facility] Chloride 108(H) 98 - 107 mmol/L 11/02/2022 2:44 AM [facility] CO2 22 22 - 29 mmol/L 11/02/2022 2:44 AM [facility] Glucose 96 70 - 115 mg/dL 11/02/2022 2:44 AM [facility] Calcium 8.6 8.4 - 10.2 mg/dL 11/02/2022 2:44 AM [facility] Anion Gap 12 8 - 18 11/02/2022 2:44 AM [facility] BUN/Creatinine Ratio 21 7 - 23 11/02/2022 2:44 AM [facility] Osmolality Calculated 285 270 - 300 mOsm/kg 11/02/2022 2:44 AM [facility] eGFR by CKD-EPI >90 >=90 mL/min/1.7 3 m2 11/02/2022 2:44 AM [facility] Blood BLOOD SPECIMEN / Unknown Lab Venipuncture / Unknown 11/02/2022 1:32 AM CDT 11/02/2022 2:16 AM CDT Emir Vail MD LAB - CHEMISTRY [facility] [facility] Organization Address City/State/ZIP Co de Phone Number [facility] [address] [place] [address], [facility] [phone] * (ABNORMAL) CBC W AUTO DIFFERENTIAL (11/02/2022 1:32 AM CDT) Pathologist [facility] WBC 19.3(H) 3.5 - 10.5 10? 3 /uL 11/02/2022 2:22 AM [facility] RBC 3.32(L) 3.80 - 5.20 10? 6 /uL 11/02/2022 2:22 AM [facility] Hemoglobin 10.0(L) 12.0 - 15.6 g/dL 11/02/2022 2:22 AM [facility] Hematocrit 31.1(L) 35.0 - 45.0 % 11/02/2022 2:22 AM [facility] MCV 93.7 80.7 - 98.3 fL 11/02/2022 2:22 AM [facility] MCH 30.1 26.7 - 34.0 pg 11/02/2022 2:22 AM [facility] MCHC 32.2 30.8 - 35.9 g/dL 11/02/2022 2:22 AM [facility] RDW-SD 49.4 36.0 - 50.0 fL 11/02/2022 2:22 AM [facility] RDW-CV 14.7 11.2 - 14.8 % 11/02/2022 2:22 AM [facility] Platelet Count 400 150 - 400 10? 3 /uL 11/02/2022 2:22 AM [facility] MPV 10.1 9.4 - 12.9 fL 11/02/2022 2:22 AM [facility] nRBC Absolute 0.02(H) 0 10? 3 /uL 11/02/2022 2:22 AM [facility] nRBC Auto 0.1(H) 0 /100 WBC 11/02/2022 2:22 AM [facility] Neutrophils % 76.4(H) 35.0 - 70.0 % 11/02/2022 2:22 AM [facility] Lymphocytes % 13.4(L) 20.0 - 43.0 % 11/02/2022 2:22 AM [facility] Monocytes % 7.3 5.0 - 13.0 % 11/02/2022 2:22 AM [facility] Eosinophils % 1.4 0.0 - 6.0 % 11/02/2022 2:22 AM CDT [facility] Basophil % 0.3 0.0 - 2.0 % 11/02/2022 2:22 AM T [facility] Neutrophils Absolute 14.73(H) 1.60 - 7.00 10? 3 /uL 11/02/2022 2:22 AM CDT [facility] Lymphocyte Absolute 2.59 1.10 - 3.90 10? 3 /uL 11/02/2022 2:22 AM T [facility] Monocytes Absolute 1.40(H) 0.26 - 1.07 10? 3 /uL 11/02/2022 2:22 AM T [facility] Eosinophils Absolute 0.27 0.00 - 0.47 10? 3 /uL 11/02/2022 2:22 AM T [facility] Basophils Absolute 0.06 0.00 - 0.08 10? 3 /uL 11/02/2022 2:22 AM T [facility] Immature Granulocytes % 1.2(H) 0.0 - 1.0 % 11/02/2022 2:22 AM [facility] Immature Granulocytes Absolute 0.23 11/02/2022 2:22 AM [facility] Blood BLOOD SPECIMEN / Unknown Lab Venipuncture / Unknown 11/02/2022 1:32 AM CDT 11/02/2022 2:17 AM CDT Emir Vail MD LAB - HEMATOLOGY ORD [facility] Organization Address City/State/[facility] Co de Phone Number [facility] [address] [place] [address], [facility] [phone] * PHOSPHORUS BLOOD (11/02/2022 1:32 AM CDT) [facility] Phosphorus 4.5 2.9 - 5.1 mg/dL 11/02/2022 2:44 AM T [facility] Blood BLOOD SPECIMEN / Unknown Lab Venipuncture / Unknown 11/02/2022 1:32 AM CDT 11/02/2022 2:16 AM CDT Emir Vail MD LAB - CHEMISTRY ORDE HIRAL Performing Organization Address City/[facility]/ZIP Co de Phone Number [facility] [address] [place] [address], [place] [phone] * MAGNESIUM BLOOD (11/02/2022 1:32 AM CDT) Pathologist [facility] Magnesium 2.0 1.6 - 2.6 mg/dL 11/02/2022 2:44 AM CDT [facility] Blood BLOOD SPECIMEN / Unknown Lab Venipuncture / Unknown 11/02/2022 1:32 AM CDT 11/02/2022 2:16 AM CDT Emir Vail MD LAB - CHEMISTRY [place] [facility]MAN Performing Organization Address City/[facility]/ZIP Co de Phone Number [facility] [address] [place] [address], [place] [phone] * PREPARE (CROSSMATCH) RBC UNIT(S), 3 Units (11/02/2022 1:17 AM CDT) Pathologist [facility] Unit Description N/A [facility] Blood Bank BLOOD SPECIMEN / Unknown 10/29/2022 11:32 AM CDT Valdez Clay MD LAB - BLOOD BANK O RDERABLES Performing Organization Address [facility]/ZIP Co de Phone Number [facility] [address] [place] [address], [place] [phone] * PREPARE (CROSSMATCH) RBC UNIT(S), 2 Units (11/02/2022 1:17 AM CDT) Unit Description AS1 LR PRBC [facility] Unit ABO B [facility] Unit Rh POS [facility] Product Number R02 [facility] B LOOD [facility]ANK LAB Unit Donor # [id number] [facility] Unit Status released [facility] BLOO D BANK LAB Product Code [id number] [facility] Blood Type Barcode 7300 [facility] Expiration Date S BLOOD BANK LAB Unit Description AS1 LR PRBC [facility] Unit ABO B [facility] Unit Rh POS [facility] Product Number R02 [facility] B LOOD BANK LAB Unit Donor # [id number] [facility] Unit Status transfused [facility] BLO OD [facility]ANK LAB Product Code [id number] [facility] OD [facility] Blood Type Barcode 7300 [facility] Expiration Date S BLOOD BANK LAB Blood Bank BLOOD SPECIMEN / Unknown 10/29/2022 11:32 AM CDT Jim Walter MD LAB - BLOOD BANK OR DERABLES [facility] [address] [place] [address], [facility] [phone] * PREPARE (CROSSMATCH) RBC UNIT(S), 2 Units (11/02/2022 1:17 AM CDT) Unit Description N/A [facility] Blood Bank BLOOD SPECIMEN / Unknown 10/29/2022 11:32 AM CDT Jim Walter MD LAB - BLOOD BANK OR DERABLES [facility] [address] [place] [address], [facility] [phone] * CT ABDOMEN WO CONTRAST (2022 6:47 PM CDT) Anatomical Region Laterality Modality Abdomen Computed Tomogra phy 2022 7:20 PM CDT Impressions 11/02/2022 1:18 AM CDT Impression: Interval placement of a percutaneous gastrostomy tube with intraluminal placement of tip and inflated balloon within the body/antrum of the stomach without complication, as clinically queried.. > Dictated by Tim Major MD (residential sales). I, Pepe Gonzalez MD have personally reviewed and interpreted this examination/study. > Interpreting Provider: Pepe Gonzalez MD on 11/02/2022 1:18 AM Narrative 11/02/2022 1:18 AM CDT PROCEDURE: ??CT ABDOMEN WO CONTRAST, DATE/TIME OF EXAM: ??2022 6:47 PM, LOCATION ??[facility] INDICATION: Z93.1: Presence of externally [...] CONTRAST, DATE/TIME OF EXAM: 2022 6:47PM, LOCATION [facility] INDICATION: Z93.1: Presence of externally [...] queried.. > Dictated by Tim Major MD (residential sales). I, Pepe Gonzalez MD have personally reviewed [...] insertion. The externally removable 24 Fr ? Ramez-Cook gastrostomy tube was lubricated. The G-tube [...] Procedure Code(s): ? --- Professional --- ? 33004, Esophagogastroduoden oscopy, flexible, transoral; with directed ? placement of percutaneous gastrostomy tube Diagnosis Code(s): ?--- Professional --- ?K44.9, Diaphragmatic hernia without obstruction or ?gangrene ?K29.60, Other gastritis without bleeding ?R13.12, Dysphagia, oropharyngeal phase ?R29.818, Other symptoms and signs involving the ?nervous system ?Z43.1, Encounter for attention to gastrostomy CPT copyright 2021 [employer]. All rights reserved. The codes documented in this report are preliminary and upon hplc chemist review may be revised to meet current compliance requirements. Khanh Metz MD 2022 3:26:58 PM Note Initiated On: 2022 2:14 PM Number of Addenda: 0 ? [facility] ? [address] [place] [address] [facility] 2022 2:14 PM CDT Khanh Metz MD GI PROCEDURE ORDERAB LES [facility] * (ABNORMAL) PTT [facility] (2022 8:48 AM CDT) APTT 43.6(H) 23.0 - 38.4 Seconds 2022 9:20 AM CDT [facility] Comment:Suggested therapeuti c range for full dose I.V. unfractionated heparin therapy for venous thromboembolism is 71 to 109 seconds. Blood BLOOD SPECIMEN / Unknown Venipuncture / Unknown 2022 8:48 AM CDT 2022 8:56 AM CDT Jim Walter MD LAB - COAGULATION O RDERABLES Performing Organization Address City/[facility]/ZIP Co de Phone Number [address] [address], [place] [phone] * PT-INR [facility] (2022 2:40 AM CDT) PT 14.3 12.1 - 14.8 Seconds 2022 3:16 AM CDT [facility] INR 1.1 See Comment 2022 3:16 AM CDT [facility] Comment:The suggested therap eutic range for standard coumadin (warfarin) therapy is an INR of 2.0-3.0. For high-risk patients (Mechanical Mitral Valve Prosthesis, etc.), the suggested prophylactic therapeutic range is an INR of 2.5-3.5. Blood BLOOD SPECIMEN / Unknown Venipuncture / Unknown 2022 2:40 AM CDT 2022 2:47 AM CDT Emir Vail MD LAB - COAGULATION OR DERABLES Performing Organization Address City/[facility]/ZIP Co de Phone Number [address] [address], [place] [phone] * (ABNORMAL) PTT [facility] (2022 2:40 AM CDT) APTT 67.7(H) 23.0 - 38.4 Seconds 2022 3:16 AM CDT [facility] Comment:Suggested therapeuti c range for full dose I.V. unfractionated heparin therapy for venous thromboembolism is 71 to 109 seconds. Blood BLOOD SPECIMEN / Unknown Venipuncture / Unknown 2022 2:40 AM CDT 2022 2:47 AM CDT Good Antunez MD LAB - COAGULATION OR DERABLES [address] [place] [address], [facility] [phone] * (ABNORMAL) PTT [facility] (2022 12:03 AM CDT) [facility] APTT 71.4(H) 23.0 - 38.4 Seconds 2022 12:45 AM [facility] Comment:Suggested therapeuti c range for full dose I.V. unfractionated heparin therapy for venous thromboembolism is 71 to 109 seconds. Blood BLOOD SPECIMEN / Unknown Venipuncture / Unknown 2022 12:03 AM CDT 2022 12:18 AM CDT Jim Walter MD LAB - COAGULATION O RDERABLES [facility] [address] [place] [address], [facility] [phone] * (ABNORMAL) BASIC METABOLIC PANEL (CALCIUM TOTAL) (2022 12:03 AM CDT) [facility] BUN 8 7 - 26 mg/dL 2022 12:45 AM [facility] Creatinine 0.56 0.56 - 0.96 mg/dL 2022 12:45 AM [facility] Sodium 139 136 - 145 mmol/L 2022 12:45 AM [facility] Potassium 3.7 3.5 - 4.5 mmol/L 2022 12:45 AM [facility] Chloride 105 98 - 107 mmol/L 2022 12:45 AM [facility] CO2 25 22 - 29 mmol/L 2022 12:45 AM [facility] Glucose 128(H) 70 - 115 mg/dL 2022 12:45 AM [facility] Calcium 8.7 8.4 - 10.2 mg/dL 2022 12:45 AM [facility] Anion Gap 13 8 - 18 2022 12:45 AM [facility] BUN/Creatinine Ratio 14 7 - 23 2022 12:45 AM [facility] Osmolality Calculated 288 270 - 300 mOsm/kg 2022 12:45 AM [facility] eGFR by CKD-EPI >90 >=90 mL/min/1.7 3 m2 2022 12:45 AM [facility] Blood BLOOD SPECIMEN / Unknown Venipuncture / Unknown 2022 12:03 AM CDT 2022 12:18 AM CDT Emir Vail MD LAB - CHEMISTRY [place] [facility] Organization Address City/State/ZIP Co de Phone Number [facility] [address] [place] [address], [facility] [phone] * (ABNORMAL) CBC W AUTO DIFFERENTIAL (2022 12:03 AM CDT) WBC 20.6(H) 3.5 - 10.5 10? 3 /uL 2022 12:40 AM [facility] RBC 3.41(L) 3.80 - 5.20 10? 6 /uL 2022 12:40 AM [facility] Hemoglobin 10.1(L) 12.0 - 15.6 g/dL 2022 12:40 AM [facility] Hematocrit 31.6(L) 35.0 - 45.0 % 2022 12:40 AM [facility] MCV 92.7 80.7 - 98.3 fL 2022 12:40 AM [facility] MCH 29.6 26.7 - 34.0 pg 2022 12:40 AM [facility] MCHC 32.0 30.8 - 35.9 g/dL 2022 12:40 AM [facility] RDW-SD 49.7 36.0 - 50.0 fL 2022 12:40 AM [facility] RDW-CV 15.1(H) 11.2 - 14.8 % 2022 12:40 AM [facility] Platelet Count 437(H) 150 - 400 10? 3 /uL 2022 12:40 AM [facility] MPV 9.8 9.4 - 12.9 fL 2022 12:40 AM [facility] nRBC Absolute 0.03(H) 0 10? 3 /uL 2022 12:40 AM [facility] nRBC Auto 0.1(H) 0 /100 WBC 2022 12:40 AM [facility] Neutrophils % 71.7(H) 35.0 - 70.0 % 2022 12:40 AM [facility] Lymphocytes % 14.3(L) 20.0 - 43.0 % 2022 12:40 AM [facility] Monocytes % 9.6 5.0 - 13.0 % 2022 12:40 AM [facility] Eosinophils % 2.0 0.0 - 6.0 % 2022 12:40 AM [facility] Basophil % 0.4 0.0 - 2.0 % 2022 12:40 AM [facility] Neutrophils Absolute 14.76(H) 1.60 - 7.00 10? 3 /uL 2022 12:40 AM [facility] Lymphocyte Absolute 2.94 1.10 - 3.90 10? 3 /uL 2022 12:40 AM [facility] Monocytes Absolute 1.98(H) 0.26 - 1.07 10? 3 /uL 2022 12:40 AM [facility] Eosinophils Absolute 0.42 0.00 - 0.47 10? 3 /uL 2022 12:40 AM [facility] Basophils Absolute 0.08 0.00 - 0.08 10? 3 /uL 2022 12:40 AM [facility] Immature Granulocytes % 2.0(H) 0.0 - 1.0 % 2022 12:40 AM [facility] Immature Granulocytes Absolute 0.41 2022 12:40 AM [facility] Blood BLOOD SPECIMEN / Unknown Venipuncture / Unknown 2022 12:03 AM CDT 2022 12:18 AM CDT Emir Vail MD LAB - HEMATOLOGY ORD [place] [address] [address], [place] [phone] * PHOSPHORUS BLOOD (2022 12:03 AM CDT) Phosphorus 4.1 2.9 - 5.1 mg/dL 2022 12:45 AM CDT [facility] Blood BLOOD SPECIMEN / Unknown Venipuncture / Unknown 2022 12:03 AM CDT 2022 12:18 AM CDT Emir Vail MD LAB - CHEMISTRY [place] [facility] Performing Organization Address City/[facility]/ZIP Co de Phone Number [address] [address], [place] [phone] * MAGNESIUM BLOOD (2022 12:03 AM CDT) Magnesium 2.1 1.6 - 2.6 mg/dL 2022 12:45 AM CDT [facility] Blood BLOOD SPECIMEN / Unknown Venipuncture / Unknown 2022 12:03 AM CDT 2022 12:18 AM CDT Emir Vail MD LAB - CHEMISTRY [place] [facility] [address] [address], [place] [phone] * (ABNORMAL) PTT [facility] (10/31/2022 10:11 PM CDT) APTT 67.6(H) 23.0 - 38.4 Seconds 10/31/2022 11:16 PM CDT [facility] Comment:Suggested therapeuti c range for full dose I.V. unfractionated heparin therapy for venous thromboembolism is 71 to 109 seconds. Blood BLOOD SPECIMEN / Unknown Venipuncture / Unknown 10/31/2022 10:11 PM CDT 10/31/2022 10:24 PM CDT Jim Walter MD LAB - COAGULATION O RDERABLES Performing Organization Address [facility] Co de Phone Number [address] [address], [facility] [phone] * (ABNORMAL) PTT [facility] (10/31/2022 7:33 PM CDT) APTT 53.1(H) 23.0 - 38.4 Seconds 10/31/2022 8:18 PM CDT [facility] Comment:Suggested therapeuti c range for full dose I.V. unfractionated heparin therapy for venous thromboembolism is 71 to 109 seconds. Blood BLOOD SPECIMEN / Unknown Venipuncture / Unknown 10/31/2022 7:33 PM CDT 10/31/2022 7:51 PM CDT Good Antunez MD LAB - COAGULATION OR DERABLES Performing Organization Address [facility] Co de Phone Number [address] [address], [facility] [phone] * (ABNORMAL) PTT [facility] (10/31/2022 3:22 PM CDT) APTT 50.2(H) 23.0 - 38.4 Seconds 10/31/2022 3:51 PM CDT [facility] Comment:Suggested therapeuti c range for full dose I.V. unfractionated heparin therapy for venous thromboembolism is 71 to 109 seconds. Blood BLOOD SPECIMEN / Unknown Venipuncture / Unknown 10/31/2022 3:22 PM CDT 10/31/2022 3:27 PM CDT Good Antunez MD LAB - COAGULATION OR DERABLES Performing Organization Address City/[facility] Co de Phone Number [address] [place] [address], [facility] [phone] * CT ABDOMEN PELVIS W CONTRAST (10/31/2022 [...] DATE/TIME OF EXAM: ??10/31/2022 10:16 AM, LOCATION ??[facility] INDICATION: I33.0: Aortic valve vegetation [...] DATE/TIME OF EXAM: 10/31/2022 10:16 AM, LOCATION [facility] INDICATION: I33.0: Aortic valve vegetation [...] Provider: Alexx Lopez on 10/31/2022 11:17 PM Jim Walter MD [address] ORDERABLES * PTT [facility] (10/31/2022 9:48 AM CDT) APTT 27.2 23.0 - 38.4 Seconds 10/31/2022 10:23 AM CDT [facility] Comment:Suggested therapeuti c range for full dose I.V. unfractionated heparin therapy for venous thromboembolism is 71 to 109 seconds. Blood BLOOD SPECIMEN / Unknown Venipuncture / Unknown 10/31/2022 9:48 AM CDT 10/31/2022 9:54 AM CDT Good Antunez MD LAB - COAGULATION OR DERABLES Performing Organization Address [facility] Co de Phone Number [address] [address], [facility] [phone] * (ABNORMAL) VANCOMYCIN LEVEL TROUGH (10/31/2022 9:48 AM CDT) Vancomycin Trough 25.4(HH) 10.0 - 20.0 ug/mL 10/31/2022 10:30 AM CDT [facility] Blood BLOOD SPECIMEN / Unknown Venipuncture / Unknown 10/31/2022 9:48 AM CDT 10/31/2022 9:51 AM CDT Narrative [facility] - 10/31/2022 10:30 AM CDT See institution protocol. Dary Garvey MD LAB - CHEMISTRY ORDE HIRAL [facility] [address] [place] [address], [facility] [phone] * PT-INR [facility] (10/31/2022 12:22 AM CDT) PT 14.5 12.1 - 14.8 Seconds 10/31/2022 12:54 AM CDT [facility] INR 1.1 See Comment 10/31/2022 12:54 AM T [facility] Comment:The suggested therap eutic range for standard coumadin (warfarin) therapy is an INR of 2.0-3.0. For high-risk patients (Mechanical Mitral Valve Prosthesis, etc.), the suggested prophylactic therapeutic range is an INR of 2.5-3.5. Blood BLOOD SPECIMEN / Unknown Venipuncture / Unknown 10/31/2022 12:22 AM CDT 10/31/2022 12:30 AM CDT Emir Vail MD LAB - COAGULATION OR DERABLES [facility] [address] [place] [address], [facility] [phone] * (ABNORMAL) BASIC METABOLIC PANEL (CALCIUM TOTAL) (10/31/2022 12:22 AM CDT) BUN 8 7 - 26 mg/dL 10/31/2022 12:57 AM CDT [facility] Creatinine 0.56 0.56 - 0.96 mg/dL 10/31/2022 12:57 AM CDT [facility] Sodium 140 136 - 145 mmol/L 10/31/2022 12:57 AM T [facility] Potassium 4.2 3.5 - 4.5 mmol/L 10/31/2022 12:57 AM CDT [facility] Chloride 107 98 - 107 mmol/L 10/31/2022 12:57 AM T [facility] CO2 24 22 - 29 mmol/L 10/31/2022 12:57 AM [facility] Glucose 119(H) 70 - 115 mg/dL 10/31/2022 12:57 AM [facility] Calcium 8.4 8.4 - 10.2 mg/dL 10/31/2022 12:57 AM [facility] Anion Gap 13 8 - 18 10/31/2022 12:57 AM [facility] BUN/Creatinine Ratio 14 7 - 23 10/31/2022 12:57 AM [facility] Osmolality Calculated 289 270 - 300 mOsm/kg 10/31/2022 12:57 AM [facility] eGFR by CKD-EPI >90 >=90 mL/min/1.7 3 m2 10/31/2022 12:57 AM [facility] Blood BLOOD SPECIMEN / Unknown Venipuncture / Unknown 10/31/2022 12:22 AM CDT 10/31/2022 12:[address] [facility] Emir Vail MD LAB - CHEMISTRY [place] BLACKMAN [facility] Organization Address City/State/ZIP Co de Phone Number [facility] [address] [place] [address], [facility] [phone] * (ABNORMAL) CBC W AUTO DIFFERENTIAL (10/31/2022 12:[address] [facility]) WBC 19.6(H) 3.5 - 10.5 10? 3 /uL 10/31/2022 12:40 AM [facility] RBC 3.30(L) 3.80 - 5.20 10? 6 /uL 10/31/2022 12:40 AM [facility] Hemoglobin 9.9(L) 12.0 - 15.6 g/dL 10/31/2022 12:40 AM [facility] Hematocrit 30.4(L) 35.0 - 45.0 % 10/31/2022 12:40 AM [facility] MCV 92.1 80.7 - 98.3 fL 10/31/2022 12:40 AM [facility] MCH 30.0 26.7 - 34.0 pg 10/31/2022 12:40 AM [facility] MCHC 32.6 30.8 - 35.9 g/dL 10/31/2022 12:40 AM [facility] RDW-SD 50.4(H) 36.0 - 50.0 fL 10/31/2022 12:40 AM [facility] RDW-CV 15.3(H) 11.2 - 14.8 % 10/31/2022 12:40 AM [facility] Platelet Count 442(H) 150 - 400 10? 3 /uL 10/31/2022 12:40 AM [facility] MPV 9.5 9.4 - 12.9 fL 10/31/2022 12:40 AM [facility] nRBC Absolute 0.15(H) 0 10? 3 /uL 10/31/2022 12:40 AM [facility] nRBC Auto 0.8(H) 0 /100 WBC 10/31/2022 12:40 AM [facility] Neutrophils % 74.0(H) 35.0 - 70.0 % 10/31/2022 12:40 AM [facility] Lymphocytes % 13.5(L) 20.0 - 43.0 % 10/31/2022 12:40 AM [facility] Monocytes % 8.3 5.0 - 13.0 % 10/31/2022 12:40 AM [facility] Eosinophils % 1.4 0.0 - 6.0 % 10/31/2022 12:40 AM [facility] Basophil % 0.4 0.0 - 2.0 % 10/31/2022 12:40 AM [facility] Neutrophils Absolute 14.54(H) 1.60 - 7.00 10? 3 /uL 10/31/2022 12:40 AM [facility] Lymphocyte Absolute 2.65 1.10 - 3.90 10? 3 /uL 10/31/2022 12:40 AM [facility] Monocytes Absolute 1.63(H) 0.26 - 1.07 10? 3 /uL 10/31/2022 12:40 AM [facility] Eosinophils Absolute 0.28 0.00 - 0.47 10? 3 /uL 10/31/2022 12:40 AM CDT [facility] Basophils Absolute 0.07 0.00 - 0.08 10? 3 /uL 10/31/2022 12:40 AM CDT [facility] Immature Granulocytes % 2.4(H) 0.0 - 1.0 % 10/31/2022 12:40 AM CDT [facility] Immature Granulocytes Absolute 0.47 10/31/2022 12:40 AM CDT [facility] Blood BLOOD SPECIMEN / Unknown Venipuncture / Unknown 10/31/2022 12:22 AM CDT 10/31/2022 12:30 AM CDT Emir Vail MD LAB - HEMATOLOGY ORD [facility]IMAS Performing Organization Address City/[facility]/ZIP Co de Phone Number [facility] [address] [place] [phone], [place] [phone] * PHOSPHORUS BLOOD (10/31/2022 12:22 AM CDT) Phosphorus 4.1 2.9 - 5.1 mg/dL 10/31/2022 12:57 AM CDT [facility] Blood BLOOD SPECIMEN / Unknown Venipuncture / Unknown 10/31/2022 12:22 AM CDT 10/31/2022 12:30 AM CDT Emir Vail MD LAB - CHEMISTRY [facility] Performing Organization Address City/[facility]/ZIP Co de Phone Number [facility] [address] [place] [phone], [place] [phone] * MAGNESIUM BLOOD (10/31/2022 12:22 AM CDT) Magnesium 1.9 1.6 - 2.6 mg/dL 10/31/2022 12:57 AM CDT [facility] Blood BLOOD SPECIMEN / Unknown Venipuncture / Unknown 10/31/2022 12:22 AM CDT 10/31/2022 12:30 AM CDT Emir Vail MD LAB - CHEMISTRY [facility] [facility] [address] [id number], [facility] [phone] * PTT [facility] (10/30/2022 9:24 PM CDT) APTT 25.8 23.0 - 38.4 Seconds 10/30/2022 9:55 PM CDT [facility] Comment:Suggested therapeuti c range for full dose I.V. unfractionated heparin therapy for venous thromboembolism is 71 to 109 seconds. Blood BLOOD SPECIMEN / Unknown Venipuncture / Unknown 10/30/2022 9:24 PM CDT 10/30/2022 9:36 PM CDT Good Antunez MD LAB - COAGULATION OR DERABLES Performing Organization Address City/[facility]/ZIP Co de Phone Number [address] [address], [place] [phone] * PTT [facility] (10/30/2022 8:32 PM CDT) APTT 27.9 23.0 - 38.4 Seconds 10/30/2022 9:06 PM CDT [facility] Comment:Suggested therapeuti c range for full dose I.V. unfractionated heparin therapy for venous thromboembolism is 71 to 109 seconds. Blood BLOOD SPECIMEN / Unknown Venipuncture / Unknown 10/30/2022 8:32 PM CDT 10/30/2022 8:41 PM CDT Good Antunez MD LAB - COAGULATION OR DERABLES [address] [address], [place] [phone] * CT HEAD WO CONTRAST (10/30/2022 8:22 [...] frontal gyrus/frontal operculum, consistent with an evolving vggpeswy-st-toxyhby infarct. 4.No significant midline shift. Similar-appearing size and configuration of the ventricles without evidence of hydrocephalus. Basal cisterns are patent. 5.No other convincing change. Partially imaged left nasoenteric tube. 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 4.No significant midline shift. Similar-appearing size and configurationof the ventricles without evidence of hydrocephalus. Basal cisterns are patent. 5.No other convincing change. Partially imaged left nasoenteric tube. > Interpreting Provider: Amanda Real MD, PhD on 10/31/2022 1:26 AM Jim Walter MD CT ORDERABLES * (ABNORMAL) PTT [facility] (10/30/2022 4:59 PM CDT) APTT 175.2(HH) 23.0 - 38.4 Seconds 10/30/2022 5:47 PM CDT [facility] Comment:Suggested therapeuti c range for full dose I.V. unfractionated heparin therapy for venous thromboembolism is 71 to 109 seconds. Blood BLOOD SPECIMEN / Unknown Venipuncture / Unknown 10/30/2022 4:59 PM CDT 10/30/2022 5:11 PM CDT Good Antunez MD LAB - COAGULATION OR DERABLES [address] [address], [place] [phone] * FL GLENN W ANGIO TEAM (10/30/2022 2:40 PM CDT) Narrative [facility] - 10/30/2022 2:56 PM CDT Fluoroscopy was used for this exam in the OR. Please see the Operative report. Valdez Clay MD FLUOROSCOPY ORDERA BLES Performing Organization Address City/[facility]/ZIP Co de Phone Number [facility] * TRANSFUSE RED BLOOD CELL LEUKOREDUCED UNIT(S) (10/30/2022 2:20 PM CDT) Valdez Clay MD NURSING - BLOOD DC OD TRANSFUSION * TRANSFUSE RED BLOOD CELL LEUKOREDUCED UNIT(S) (10/30/2022 1:53 PM CDT) Valdez Clay MD NURSING - BLOOD DC OD TRANSFUSION * ACT LR - POCT ([facility]) (10/30/2022 1:50 PM CDT) ACT LR 287 See result comments sec 10/30/2022 6:37 PM CDT [facility] Blood BLOOD SPECIMEN / Unknown 10/30/2022 1:50 PM CDT 10/30/2022 6:37 PM CDT Narrative [facility] - 10/30/2022 6:37 PM CDT ACT-LR Therapeutics ranges are: Cardiac laborer tanbark = 200-300 seconds Sheath pull = ACT [...] Walter MD LAB - COAGULATION O RDERABLES [address] [address], [place] [phone] * (ABNORMAL) BLOOD GAS+COOX+LYTES+METAB ARTERIAL POCT (10/30/2022 1:33 PM CDT) pH Arterial 7.40 7.35 - 7.45 pH 10/30/2022 1:33 PM [facility] pO2 Arterial 228(H) 80 - 100 mmHg 10/30/2022 1:33 PM [facility] pCO2 Arterial 39 35 - 45 mmHg 1:33 PM [facility] HCO3 Arterial 24.2 20.0 - 30.0 mmol/L 10/30/2022 1:33 PM [facility] BE Arterial -0.5 -2.0 - 2.0 mmol/L 10/30/2022 1:33 PM [facility] Oxyhemoglobin Arterial 97.5 % 10/30/2022 1:33 PM [facility] Dexoyhemoglobin (HHB) % <1.0 % 10/30/2022 1:33 PM [facility] Methemoglobin <0.8 0.0 - 2.0 % 10/30/2022 1:33 PM [facility] Carboxyhemoglobin 1.4 0.0 - 2.0 % 2022 1:33 PM [facility] Comment:Carboxyhemoglobin No rmal Concentration: Non-smokers: 0-2%; Smokers: 0- 9%; Toxic: >20% O2 Content Arterial 11.3 Interpret within clinical context ml/dL 10/30/2022 1:33 PM [facility] Hemoglobin by COOX 7.8(L) 12.0 - 15.6 g/dL 10/30/2022 1:33 PM [facility] O2 Saturation Arterial 100 90 - 100 % 10/30/2022 1:33 PM [facility] Sodium Whole Blood 140 135 - 145 mmol/L 10/30/2022 1:33 PM [facility] Potassium Whole Blood 4.4 3.5 - 5.5 mmol/L 10/30/2022 1:33 PM [facility] Chloride WB 108(H) 78 - 107 mmol/L 10/30/2022 1:33 PM [facility] Calcium Ionized 1.30 mmol/L 1:33 PM [facility] Ionized Calcium pH Adjusted 1.30 1.19 - 1.34 mmol/L 10/30/2022 1:33 PM CDT [facility] Anion Gap (AG) Arterial 12 8 - 18 mmol/L 10/30/2022 1:33 PM CDT [facility] Glucose WB 127(H) 70 - 115 mg/dL 10/30/2022 1:33 PM CDT [facility] Lactic Acid Whole Blood 0.9 <=2.0 mmol/L 10/30/2022 1:33 PM CDT [facility] Blood, arterial ARTERIAL BLOOD SPECIMEN / Unknown 10/30/2022 1:33 PM CDT 10/30/2022 1:34 PM CDT Jim Walter MD LAB - POINT OF CARE ORDERABLES Performing Organization Address [facility] Co de Phone Number [address] [address], [place] [phone] * ACT LR - POCT ([facility]) (10/30/2022 1:32 PM CDT) ACT LR 171 See result comments sec 10/30/2022 6:37 PM CDT [facility] Blood BLOOD SPECIMEN / Unknown 10/30/2022 1:32 PM CDT 10/30/2022 6:37 PM CDT Narrative [facility] - 10/30/2022 6:37 PM CDT ACT-LR Therapeutics ranges are: Cardiac laborer tanbark = 200-300 seconds Sheath pull = ACT [...] - COAGULATION O RDERABLES Performing Organization Address [facility] Co de Phone Number [address] [address], [place] [phone] * (ABNORMAL) BLOOD GAS+COOX+LYTES+METAB ARTERIAL POCT (10/30/2022 12:[address] [facility]) pH Arterial 7.33(L) 7.35 - 7.45 pH 10/30/2022 12:59 PM [facility] pO2 Arterial 208(H) 80 - 100 mmHg 10/30/2022 12:59 PM [facility] pCO2 Arterial 49(H) 35 - 45 mmHg 12:59 PM [facility] HCO3 Arterial 25.8 20.0 - 30.0 mmol/L 10/30/2022 12:59 PM [facility] BE Arterial -0.2 -2.0 - 2.0 mmol/L 10/30/2022 12:59 PM [facility] Oxyhemoglobin Arterial 95.7 % 10/30/2022 12:59 PM [facility] Dexoyhemoglobin (HHB) % 1.6 % 10/30/2022 12:59 PM [facility] Methemoglobin 1.4 0.0 - 2.0 % 10/30/2022 12:59 PM [facility] Carboxyhemoglobin 1.3 0.0 - 2.0 % 2022 12:59 PM [facility] Comment:Carboxyhemoglobin No rmal Concentration: Non-smokers: 0-2%; Smokers: 0- 9%; Toxic: >20% O2 Content Arterial 10.2 Interpret within clinical context ml/dL 10/30/2022 12:59 PM [facility] Hemoglobin by COOX 7.2(L) 12.0 - 15.6 g/dL 10/30/2022 12:59 PM [facility] O2 Saturation Arterial 98 90 - 100 % 10/30/2022 12:59 PM [facility] Sodium Whole Blood 139 135 - 145 mmol/L 10/30/2022 12:59 PM [facility] Potassium Whole Blood 4.2 3.5 - 5.5 mmol/L 10/30/2022 12:59 PM [facility] Chloride WB 109(H) 78 - 107 mmol/L 10/30/2022 12:59 PM [facility] Calcium Ionized 1.08 mmol/L 12:59 PM CDT [facility] Ionized Calcium pH Adjusted 1.05(L) 1.19 - 1.34 mmol/L 10/30/2022 12:59 PM CDT [facility] Anion Gap (AG) Arterial 8 8 - 18 mmol/L 10/30/2022 12:59 PM CDT [facility] Glucose WB 133(H) 70 - 115 mg/dL 10/30/2022 12:59 PM CDT [facility] Lactic Acid Whole Blood 0.7 <=2.0 mmol/L 10/30/2022 12:59 PM CDT [facility] Blood, arterial ARTERIAL BLOOD SPECIMEN / Unknown 10/30/2022 12:59 PM CDT 10/30/2022 1:00 PM CDT Jim Walter MD LAB - POINT OF CARE ORDERABLES Performing Organization Address [facility]/ZIP Co de Phone Number [address] [address], [facility] [phone] * ACT LR - POCT ([facility]) (10/30/2022 12:57 PM CDT) ACT LR 228 See result comments sec 10/30/2022 6:37 PM CDT [facility] Blood BLOOD SPECIMEN / Unknown 10/30/2022 12:57 PM CDT 10/30/2022 6:37 PM CDT Narrative [facility] - 10/30/2022 6:37 PM CDT ACT-LR Therapeutics ranges are: Cardiac laborer tanbark = 200-300 seconds Sheath pull = ACT [...] - COAGULATION O RDERABLES Performing Organization Address City/[facility]/ZIP Co de Phone Number [address] [address], [place] [phone] * BLOOD GAS ART+LYTES+METAB+COOX POC NOTIF (10/30/2022 12:50 PM CDT) Comment Notification Label Only - See Separate Report 10/30/2022 2:02 PM CDT [facility] Other MISCELLANEOUS SAMPLES / Unknown 10/30/2022 12:50 PM CDT 10/30/2022 12:54 PM CDT Manuel Ramirez MD LAB - BLOOD GASES ORDERABLES [facility] [address] [place] [address], [facility] [phone] * ACT LR - POCT ([facility]) (10/30/2022 12:26 PM CDT) Pathologist [facility] ACT LR 260 See result comments sec 10/30/2022 6:37 PM CDT [facility] Blood BLOOD SPECIMEN / Unknown 10/30/2022 12:26 PM CDT 10/30/2022 6:37 PM CDT Narrative [facility] - 10/30/2022 6:37 PM CDT ACT-LR Therapeutics ranges are: Cardiac laborer tanbark = 200-300 seconds Sheath pull = ACT [...] Walter MD LAB - COAGULATION O RDERABLES [facility] [address] [place] [address], [place] [phone] * PATHOLOGY TISSUE (10/30/2022 12:18 PM CDT) Case Report Surgical Pathology Report ? Case: [id number] ? Authorizing Provider: ??Valdez Clay MD ?Collected: ? 10/30/2022 12:18 PM ? Ordering Location: ? [facility] ICU ? Received: ?10/30/2022 01:28 PM ? Pathologist: ? Rayna Barrera MD ? Specimen: ?Thrombus, right femoral thrombus ? 11/04/2022 6:13 PM CDT [facility] Final Diagnosis Thrombus, right femoral, thrombectomy (A): - Thrombus 11/04/2022 6:13 PM CDT [facility] Microscopic Description and Comment Microscopic examination substantiates the final diagnosis. 11/04/2022 6:13 PM CDT [facility] Clinical History The patient is [...] in cassette A1. RB/CC 11/04/2022 6:13 PM CDT [facility] Pathologist [facility] 11/04/2022 6:13 PM CDT [facility] Disclaimer The performance characteristics of all immunohistochemical and indirect immunofluorescence stains (if any) cited in this report were determined by the Histopathology Laboratory of [facility]. Some of these tests were developed [...] attending (teaching) pathologist. 11/04/2022 6:13 PM CDT [facility] Embedded Images 11/04/2022 6:13 PM CDT [facility] Resection without Tumor THROMBUS / Unknown 10/30/2022 12:18 PM CDT 10/30/2022 1:28 PM CDT Comment:Pre-op diagnosis: Critical limb-threatening ischemia Valdez Clay MD LAB - PATHOLOGY/CY TOLOGY ORDERABLES Performing Organization Address City/State/[facility] Co de Phone Number [facility] [address] [phone] * ACT LR - POCT ([facility]) (10/30/2022 12:16 PM CDT) ACT LR 223 See result comments sec 10/30/2022 6:37 PM CDT [facility] Blood BLOOD SPECIMEN / Unknown 10/30/2022 12:16 PM CDT 10/30/2022 6:37 PM CDT Narrative [facility] - 10/30/2022 6:37 PM CDT ACT-LR Therapeutics ranges are: Cardiac laborer tanbark = 200-300 seconds Sheath pull = ACT [...] Jim Walter MD LAB - COAGULATION O RDJINBLES Performing Organization Address City/[facility]/ZIP Co de Phone Number [facility] [address] [place] [address], [place] [phone] * ACT LR - POCT ([facility]) (10/30/2022 12:07 PM CDT) ACT LR 121 See result comments sec 10/30/2022 6:37 PM CDT [facility] Blood BLOOD SPECIMEN / Unknown 10/30/2022 12:07 PM CDT 10/30/2022 6:37 PM CDT Narrative [facility] - 10/30/2022 6:37 PM CDT ACT-LR Therapeutics ranges are: Cardiac laborer tanbark = 200-300 seconds Sheath pull = ACT [...] - COAGULATION O DIONI Performing Organization Address [facility]/ZIP Co de Phone Number [facility] [address] [place] [address], [place] [phone] * PREPARE (CROSSMATCH) RBC UNIT(S), 1 Units (10/30/2022 10:38 AM CDT) Unit Description AS1 LR PRBC [facility] Unit ABO B [facility] Unit Rh POS [facility] Product Number R02 [facility] LO[facility] Unit Donor # [id number] [facility] Unit Status transfused [facility] OD [facility] Product Code N4781D84 [facility] Blood Type Barcode 7300 [facility] Expiration Date [id number] S BLOOD BANK LAB Blood Bank BLOOD SPECIMEN / Unknown 10/29/2022 11:32 AM CDT Jim Walter MD LAB - BLOOD BANK OR DERABLES Performing Organization Address [facility] Co de Phone Number [facility] [address] [place] [address], [facility] [phone] * (ABNORMAL) PTT [facility] (10/30/2022 8:39 AM CDT) APTT 96.2(H) 23.0 - 38.4 Seconds 10/30/2022 9:23 AM CDT [facility] Comment:Suggested therapeuti c range for full dose I.V. unfractionated heparin therapy for venous thromboembolism is 71 to 109 seconds. Blood BLOOD SPECIMEN / Unknown Venipuncture / Unknown 10/30/2022 8:39 AM CDT 10/30/2022 8:44 AM CDT Good Antunez MD LAB - COAGULATION OR DERABLES Performing Organization Address [facility] de Phone Number [facility] [address] [place] [address], [facility] [phone] * PT-INR [facility] (10/30/2022 2:37 AM CDT) PT 13.6 12.1 - 14.8 Seconds 10/30/2022 3:26 AM CDT [facility] INR 1.0 See Comment 10/30/2022 3:26 AM CDT [facility] Comment:The suggested therap eutic [...] Organization Address [facility] Co de Phone Number [facility] [address] [place] [address], [facility] [phone] * (ABNORMAL) PTT [facility] (10/30/2022 2:37 AM CDT) Pathologist [facility] APTT 77.7(H) 23.0 - 38.4 Seconds 10/30/2022 3:26 AM CDT [facility] Comment:Suggested therapeuti c range for full dose I.V. unfractionated heparin therapy for venous thromboembolism is 71 to 109 seconds. Blood BLOOD SPECIMEN / Unknown Venipuncture / Unknown 10/30/2022 2:37 AM CDT 10/30/2022 2:46 AM CDT Good Antunez MD LAB - COAGULATION OR DERABLES Performing Organization Address [facility] de Phone Number [facility] [address] [place] [address], [facility] [phone] * HCG BETA BLOOD QUANTITATIVE (10/30/2022 12:17 AM CDT) [facility] Beta-hCG Total Quantitative <3 mIU/mL 10/30/2022 1:14 AM CDT [facility] Comment: HCG Numeric Result Interpretation: ? [...] Organization Address [facility] Co de Phone Number [facility] [address] [place] [address], [place] [phone] * (ABNORMAL) DIFFERENTIAL MANUAL (10/30/2022 12:[address] [facility]) WBC (corrected for NRBC) 17.9 10? 3 /uL 10/30/2022 1:27 AM [facility] Total Cell Count 100 10/31/19 1:27 AM [facility] Neutrophils Absolute Manual 11.46(H) 1.60 - 7.00 10? 3 /uL 10/30/2022 1:27 AM [facility] Comment:(BANDS+SEGS) x WBC = NEUT # (ANC) Lymphocyte Absolute Manual 4.83(H) 1.10 - 3.90 10? 3 /uL 10/30/2022 1:27 AM [facility] Monocytes Absolute Manual 0.90 0.26 - 1.07 10? 3 /uL 10/30/2022 1:27 AM [facility] Basophil Absolute Manual 0.18(H) 0.00 - 0.08 10? 3 /uL 10/30/2022 1:27 AM [facility] Band % Manual 3 0 - 10 % 10/30/2022 1:27 AM [facility] Neutrophil % Manual 61 35 - 70 % 10/30/2022 1:27 AM [facility] Lymphocyte % Manual 27 20 - 43 % 10/30/2022 1:27 AM [facility] Monocytes % Manual 5 5 - 13 % 10/30/2022 1:27 AM [facility] Basophils % Manual 1 0 - 2 % 10/30/2022 1:27 AM [facility] Metamyelocyte % Manual 1(H) 0 % 10/30/2022 1:27 AM [facility] Myelocytes % Manual 2(H) 0 % 10/30/2022 1:27 AM [facility] nRBC Manual 1(H) 0 /100 WBC 10/30/2022 1:27 AM [facility] Platelet Estimate Increased(A ) Adequate 10/30/2022 1:27 AM [facility] Anisocytosis Occasional( A) None 10/30/2022 1:27 AM [facility] Macrocytosis Few(A) None 10/30/2022 1:27 AM [facility] Polychromasia Few(A) None 10/30/2022 1:27 AM [facility] [place] Bodies Rare(A) None 10/30/2022 1:27 AM [facility] Ovalocytes Rare(A) None 10/30/2022 1:27 AM [facility] Eduardo Cells Occasional( A) None 10/30/2022 1:27 AM [facility] Smudge Cells Rare(A) None 10/30/2022 1:27 AM [facility] Comment Platelet Platelet clumpled on the smear but appear increased. 10/30/2022 1:27 AM [facility] Blood BLOOD SPECIMEN / Unknown Venipuncture / Unknown 10/30/2022 12:17 AM CDT 10/30/2022 12:28 AM CDT Emir Vail MD LAB - HEMATOLOGY ORD ERABLES Performing Organization Address [facility] Co de Phone Number [facility] [address] [place] [phone] [phone] * (ABNORMAL) BASIC METABOLIC PANEL (CALCIUM TOTAL) (10/30/2022 12:17 AM CDT) BUN 11 7 - 26 mg/dL 10/30/2022 1:03 AM [facility] Creatinine 0.61 0.56 - 0.96 mg/dL 10/30/2022 1:03 AM [facility] Sodium 141 136 - 145 mmol/L 10/30/2022 1:03 AM [facility] Potassium 4.0 3.5 - 4.5 mmol/L 10/30/2022 1:03 AM [facility] Chloride 107 98 - 107 mmol/L 10/30/2022 1:03 AM [facility] CO2 25 22 - 29 mmol/L 10/30/2022 1:03 AM [facility] Glucose 134(H) 70 - 115 mg/dL 10/30/2022 1:03 AM [facility] Calcium 8.8 8.4 - 10.2 mg/dL 10/30/2022 1:03 AM [facility] Anion Gap 13 8 - 18 10/30/2022 1:03 AM [facility] BUN/Creatinine Ratio 18 7 - 23 10/30/2022 1:03 AM [facility] Osmolality Calculated 293 270 - 300 mOsm/kg 10/30/2022 1:03 AM [facility] eGFR by CKD-EPI >90 >=90 mL/min/1.7 3 m2 10/30/2022 1:03 AM [facility] Blood BLOOD SPECIMEN / Unknown Venipuncture / Unknown 10/30/2022 12:17 AM CDT 10/30/2022 12:29 AM T Emir Vail MD LAB - CHEMISTRY ORDE HIRAL [facility] Organization Address City/State/ZIP Co de Phone Number [facility] [address] [place] [address], [facility] [phone] * (ABNORMAL) CBC W AUTO DIFFERENTIAL (10/30/2022 12:17 AM CDT) WBC 17.9(H) 3.5 - 10.5 10? 3 /uL 10/30/2022 12:45 AM [facility] Comment:The WBC count is cor rected by the instrument for nRBC's RBC 2.53(L) 3.80 - 5.20 10? 6 /uL 10/30/2022 12:45 AM [facility] Hemoglobin 7.6(L) 12.0 - 15.6 g/dL 10/30/2022 12:45 AM [facility] Hematocrit 24.3(L) 35.0 - 45.0 % 10/30/2022 12:45 AM [facility] MCV 96.0 80.7 - 98.3 fL 10/30/2022 12:45 AM [facility] MCH 30.0 26.7 - 34.0 pg 10/30/2022 12:45 AM [facility] MCHC 31.3 30.8 - 35.9 g/dL 10/30/2022 12:45 AM [facility] RDW-SD 47.9 36.0 - 50.0 fL 10/30/2022 12:45 AM CDT [facility] RDW-CV 13.8 11.2 - 14.8 % 10/30/2022 12:45 AM CDT [facility] Platelet Count 586(H) 150 - 400 10? 3 /uL 10/30/2022 12:45 AM CDT [facility] MPV 10.4 9.4 - 12.9 fL 10/30/2022 12:45 AM CDT [facility] nRBC Absolute 0.18(H) 0 10? 3 /uL 10/30/2022 12:45 AM CDT [facility] nRBC Auto 1.0(H) 0 /100 WBC 10/30/2022 12:45 AM CDT [facility] Blood BLOOD SPECIMEN / Unknown Venipuncture / Unknown 10/30/2022 12:17 AM CDT 10/30/2022 12:28 AM CDT Emir Vail MD LAB - HEMATOLOGY ORD ERABLES [address] [address], [facility] [phone] * PHOSPHORUS BLOOD (10/30/2022 12:17 AM CDT) Phosphorus 5.1 2.9 - 5.1 mg/dL 10/30/2022 1:03 AM CDT [facility] Blood BLOOD SPECIMEN / Unknown Venipuncture / Unknown 10/30/2022 12:17 AM CDT 10/30/2022 12:29 AM CDT Emir Vail MD LAB - CHEMISTRY ORDE HIRAL [address] [address], [place] [phone] * MAGNESIUM BLOOD (10/30/2022 12:17 AM CDT) Magnesium 2.1 1.6 - 2.6 mg/dL 10/30/2022 1:03 AM CDT [facility] Blood BLOOD SPECIMEN / Unknown Venipuncture / Unknown 10/30/2022 12:17 AM CDT 10/30/2022 12:29 AM CDT Emir Vail MD LAB - CHEMISTRY [place] [facility] [address] [place] [address], [place] [phone] * (ABNORMAL) PTT [facility] (10/29/2022 8:02 PM CDT) APTT 70.7(H) 23.0 - 38.4 Seconds 10/29/2022 8:41 PM CDT [facility] Comment:Suggested therapeuti c range for full dose I.V. unfractionated heparin therapy for venous thromboembolism is 71 to 109 seconds. Blood BLOOD SPECIMEN / Unknown Venipuncture / Unknown 10/29/2022 8:02 PM CDT 10/29/2022 8:14 PM CDT Good Antunez MD LAB - COAGULATION OR DERABLES Performing Organization Address [facility]/ZIP Co de Phone Number [address] [address], [place] [phone] * (ABNORMAL) PTT [facility] (10/29/2022 3:41 PM CDT) APTT 64.4(H) 23.0 - 38.4 Seconds 10/29/2022 4:28 PM CDT [facility] Comment:Suggested therapeuti c range for full dose I.V. unfractionated heparin therapy for venous thromboembolism is 71 to 109 seconds. Blood BLOOD SPECIMEN / Unknown Venipuncture / Unknown 10/29/2022 3:41 PM CDT 10/29/2022 3:48 PM CDT Good Antunez MD LAB - COAGULATION OR DERABLES Performing Organization Address City/[facility]/ZIP Co de Phone Number 16 [address] [address], [place] [phone] * TYPE + SCREEN PANEL (10/29/2022 11:19 AM CDT) Antibody Screen NEG 12:14 PM CDT [facility] ABO Rh B POS 10/29/2022 12:14 PM CDT [facility] Blood Bank BLOOD SPECIMEN / Unknown Venipuncture / Unknown 10/29/2022 11:19 AM CDT 10/29/2022 11:32 AM CDT Jim Walter MD LAB - BLOOD BANK OR DERABLES [facility] [address] [place] [address], [facility] [phone] * XR CHEST 1VW PORTABLE (10/29/2022 10:29 AM CDT) Anatomical Region Laterality Modality Chest Radiographic Irene ging 10/29/2022 11:3 8 AM CDT Narrative 10/29/2022 12:59 PM CDT PROCEDURE: ??XR CHEST 1VW PORTABLE, DATE/TIME OF EXAM: ??10/29/2022 10:29 AM, LOCATION ??[facility] INDICATION: R09.02: Hypoxia ADDITIONAL CLINICAL INFORMATION: Ordering Provider Reason For Exam: ??evaluate for hypoxia COMPARISON: Chest x-ray from 10/27/2022 FINDINGS/IMPRESSION: Enteric tube is seen coursing over the diaphragm without visualization of the distal tip. There is no focal consolidation, pleural effusion, or pneumothorax. The cardiomediastinal silhouette is normal. Report dictated by Jacques Russell DO (residential sales). I, Jacques Cole DO have personally reviewed and interpreted this examination/study. > Interpreting Provider: Jacques Cole DO on 10/29/2022 12:59 PM Procedure Note Jacques Cole DO - 10/29/2022 PROCEDURE: XR CHEST 1VW PORTABLE, DATE/TIME OF EXAM: 10/29/2022 10:29AM, LOCATION [facility] INDICATION: R09.02: Hypoxia ADDITIONAL CLINICAL INFORMATION: Ordering Provider Reason For Exam: evaluate for hypoxia COMPARISON: Chest x-ray from 10/27/2022 FINDINGS/IMPRESSION: Enteric tube is seen coursing over the diaphragm without visualizationof the distal tip. There is no focal consolidation, pleural effusion, or pneumothorax. The cardiomediastinal silhouette is normal. Report dictated by Jacques Russell DO (residential sales). I, Jacques Cole DO have personally reviewed and interpreted this examination/study. > Interpreting Provider: Jacques Cole DO on 10/29/2022 12:59 PM Jim Walter MD DIAGNOSTIC IMAGING ORDERABLES * (ABNORMAL) PTT [facility] (10/29/2022 10:04 AM CDT) APTT 60.5(H) 23.0 - 38.4 Seconds 10/29/2022 10:38 AM CDT [facility] Comment:Suggested therapeuti c range for full dose I.V. unfractionated heparin therapy for venous thromboembolism is 71 to 109 seconds. Blood BLOOD SPECIMEN / Unknown Venipuncture / Unknown 10/29/2022 10:04 AM CDT 10/29/2022 10:11 AM CDT Good Antunez MD LAB - COAGULATION OR DERABLES [facility] [address] [place] [address], [facility] [phone] * PT-INR [facility] (10/29/2022 2:14 AM CDT) PT 13.2 12.1 - 14.8 Seconds 10/29/2022 2:49 AM CDT [facility] INR 1.0 See Comment 10/29/2022 2:49 AM CDT [facility] Comment:The suggested therap eutic range for [...] Organization Address [facility]/ZIP Co de Phone Number [address] [address], [facility] [phone] * (ABNORMAL) PTT [facility] (10/29/2022 2:14 AM CDT) Pathologist [facility] APTT 60.3(H) 23.0 - 38.4 Seconds 10/29/2022 2:49 AM CDT [facility] Comment:Suggested therapeuti c range for full dose I.V. unfractionated heparin therapy for venous thromboembolism is 71 to 109 seconds. Blood BLOOD SPECIMEN / Unknown Venipuncture / Unknown 10/29/2022 2:14 AM CDT 10/29/2022 2:24 AM CDT Good Antunez MD LAB - COAGULATION OR DERABLES Performing Organization Address [facility] Co de Phone Number [address] [address], [facility] [phone] * (ABNORMAL) DIFFERENTIAL MANUAL (10/29/2022 12:10 AM CDT) [facility] WBC (corrected for NRBC) 21.3 10? 3 /uL 10/29/2022 1:20 AM CDT [facility] Total Cell Count 100 10/30/19 1:20 AM T [facility] Neutrophils Absolute Manual 13.42(H) 1.60 - 7.00 10? 3 /uL 10/29/2022 1:20 AM T [facility] Comment:(BANDS+SEGS) x WBC = NEUT # (ANC) Lymphocyte Absolute Manual 4.90(H) 1.10 - 3.90 10? 3 /uL 10/29/2022 1:20 AM CDT [facility] Monocytes Absolute Manual 1.92(H) 0.26 - 1.07 10? 3 /uL 10/29/2022 1:20 AM CDT [facility] Eosinophils Absolute Manual 0.64(H) 0.00 - 0.47 10? 3 /uL 10/29/2022 1:20 AM [facility] Band % Manual 3 0 - 10 % 10/29/2022 1:20 AM [facility] Neutrophil % Manual 60 35 - 70 % 10/29/2022 1:20 AM [facility] Lymphocyte % Manual 23 20 - 43 % 10/29/2022 1:20 AM [facility] Monocytes % Manual 9 5 - 13 % 10/29/2022 1:20 AM [facility] Eosinophils % Manual 3 0 - 6 % 10/29/2022 1:20 AM [facility] Metamyelocyte % Manual 2(H) 0 % 10/29/2022 1:20 AM [facility] nRBC Manual 1(H) 0 /100 WBC 10/29/2022 1:20 AM [facility] Platelet Estimate Increased (A) Adequate 10/29/2022 1:20 AM [facility] Macrocytosis 1+(A) None 10/29/2022 1:20 AM [facility] Polychromasia 1+(A) None 10/29/2022 1:20 AM [facility] Blood BLOOD SPECIMEN / Unknown Venipuncture / Unknown 10/29/2022 12:10 AM CDT 10/29/2022 12:16 AM CDT Emir Vail MD LAB - HEMATOLOGY ORD ERABLES [facility] [address] [place] [address], [facility] [phone] * (ABNORMAL) BASIC METABOLIC PANEL (CALCIUM TOTAL) (10/29/2022 12:10 AM CDT) BUN 9 7 - 26 mg/dL 10/29/2022 12:44 AM [facility] Creatinine 0.54(L) 0.56 - 0.96 mg/dL 10/29/2022 12:44 AM [facility] Sodium 138 136 - 145 mmol/L 10/29/2022 12:44 AM [facility] Potassium 4.1 3.5 - 4.5 mmol/L 10/29/2022 12:44 AM [facility] Chloride 106 98 - 107 mmol/L 10/29/2022 12:44 AM [facility] CO2 24 22 - 29 mmol/L 10/29/2022 12:44 AM [facility] Glucose 110 70 - 115 mg/dL 10/29/2022 12:44 AM [facility] Calcium 8.8 8.4 - 10.2 mg/dL 10/29/2022 12:44 AM [facility] Anion Gap 12 8 - 18 10/29/2022 12:44 AM [facility] BUN/Creatinine Ratio 17 7 - 23 10/29/2022 12:44 AM [facility] Osmolality Calculated 285 270 - 300 mOsm/kg 10/29/2022 12:44 AM [facility] eGFR by CKD-EPI >90 >=90 mL/min/1.7 3 m2 10/29/2022 12:44 AM [facility] Blood BLOOD SPECIMEN / Unknown Venipuncture / Unknown 10/29/2022 12:10 AM CDT 10/29/2022 12:17 AM T Emir Vail MD LAB - CHEMISTRY ORDE [facility] Organization Address City/State/[facility] Co de Phone Number [facility] [address] [place] [address], [facility] [phone] * (ABNORMAL) CBC W AUTO DIFFERENTIAL (10/29/2022 12:10 AM CDT) WBC 21.3(H) 3.5 - 10.5 10? 3 /uL 10/29/2022 12:32 AM [facility] RBC 2.54(L) 3.80 - 5.20 10? 6 /uL 10/29/2022 12:32 AM [facility] Hemoglobin 7.8(L) 12.0 - 15.6 g/dL 10/29/2022 12:32 AM [facility] Hematocrit 24.4(L) 35.0 - 45.0 % 10/29/2022 12:32 AM [facility] MCV 96.1 80.7 - 98.3 fL 10/29/2022 12:32 AM CDT [facility] MCH 30.7 26.7 - 34.0 pg 10/29/2022 12:32 AM T [facility] MCHC 32.0 30.8 - 35.9 g/dL 10/29/2022 12:32 AM T [facility] RDW-SD 47.9 36.0 - 50.0 fL 10/29/2022 12:32 AM T [facility] RDW-CV 14.0 11.2 - 14.8 % 10/29/2022 12:32 AM [facility] Platelet Count 584(H) 150 - 400 10? 3 /uL 10/29/2022 12:32 AM T [facility] MPV 10.0 9.4 - 12.9 fL 10/29/2022 12:32 AM [facility] nRBC Absolute 0.13(H) 0 10? 3 /uL 10/29/2022 12:32 AM [facility] nRBC Auto 0.6(H) 0 /100 WBC 10/29/2022 12:32 AM [facility] Blood BLOOD SPECIMEN / Unknown Venipuncture / Unknown 10/29/2022 12:10 AM CDT 10/29/2022 12:16 AM CDT Emir Vail MD LAB - HEMATOLOGY ORD DIMAS [facility] [address] [place] [address], [facility] [phone] * PHOSPHORUS BLOOD (10/29/2022 12:10 AM CDT) Phosphorus 4.8 2.9 - 5.1 mg/dL 10/29/2022 12:44 AM T [facility] Blood BLOOD SPECIMEN / Unknown Venipuncture / Unknown 10/29/2022 12:10 AM CDT 10/29/2022 12:17 AM CDT Emir Vail MD LAB - CHEMISTRY ORDE HIRAL [facility] [address] [place] [address], [facility] [phone] * MAGNESIUM BLOOD (10/29/2022 12:10 AM CDT) Magnesium 2.0 1.6 - 2.6 mg/dL 10/29/2022 12:44 AM CDT [facility] Blood BLOOD SPECIMEN / Unknown Venipuncture / Unknown 10/29/2022 12:10 AM CDT 10/29/2022 12:17 AM CDT Emir Vail MD LAB - CHEMISTRY ORDE HIRAL [address] [address], [facility] [phone] * XR ABDOMEN KUB (10/28/2022 11:13 PM CDT) Anatomical Region Laterality Modality Abdomen Radiographic Irene ging 10/29/2022 10:0 5 AM CDT Narrative 10/29/2022 12:49 PM CDT PROCEDURE: ??XR ABDOMEN KUB, DATE/TIME OF EXAM: ??10/28/2022 11:13 PM, LOCATION ??[facility] 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 Report dictated by Jacques Russell DO (residential sales). IJacques DO have personally reviewed and interpreted this examination/study. 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 Report dictated by Jacques Russell DO (residential sales). I, Jacques Cole DO have personally reviewed and interpreted this examination/study. > Interpreting Provider: Jacques Cole DO on 10/29/2022 12:49 PM Jim Walter MD DIAGNOSTIC IMAGING ORDERABLES * GLUCOSE - POINT OF CARE (10/28/2022 10:54 PM CDT) Glucose WB/POC 105 70 - 115 mg/dL 10/28/2022 10:54 PM CDT [facility] Specimen Type Cap Fingerstick 2022 10:54 PM CDT [facility] Blood BLOOD SPECIMEN / Unknown 10/28/2022 10:54 PM CDT 10/28/2022 10:54 PM CDT Jim Walter MD LAB - POINT OF CARE ORDERABLES [address] [address], [place] [phone] * (ABNORMAL) PTT [facility] (10/28/2022 9:00 PM CDT) APTT 62.1(H) 23.0 - 38.4 Seconds 10/28/2022 9:34 PM CDT [facility] Comment:Suggested therapeuti c range for full dose I.V. unfractionated heparin therapy for venous thromboembolism is 71 to 109 seconds. Blood BLOOD SPECIMEN / Unknown Venipuncture / Unknown 10/28/2022 9:00 PM CDT 10/28/2022 9:11 PM CDT Good Antunez MD LAB - COAGULATION OR DERABLES [address] [address], [place] [phone] * (ABNORMAL) GLUCOSE - POINT OF CARE (10/28/2022 5:26 PM CDT) Glucose WB/POC 118(H) 70 - 115 mg/dL 10/28/2022 5:38 PM CDT [facility] Specimen Type Cap Fingerstick 2022 5:38 PM CDT [facility] Blood BLOOD SPECIMEN / Unknown 10/28/2022 5:26 PM CDT 10/28/2022 5:38 PM CDT Jim Walter MD LAB - POINT OF CARE ORDERABLES Performing Organization Address City/[facility]/ZIP Co de Phone Number [address] [address], [place] [phone] * (ABNORMAL) PTT [facility] (10/28/2022 3:54 PM CDT) APTT 63.4(H) 23.0 - 38.4 Seconds 10/28/2022 4:32 PM CDT [facility] Comment:Suggested therapeuti c range for full dose I.V. unfractionated heparin therapy for venous thromboembolism is 71 to 109 seconds. Blood BLOOD SPECIMEN / Unknown Venipuncture / Unknown 10/28/2022 3:54 PM CDT 10/28/2022 4:10 PM CDT Good Antunez MD LAB - COAGULATION OR DERABLES Performing Organization Address City/[facility]/ZIP Co de Phone Number [address] [address], [place] [phone] * (ABNORMAL) GLUCOSE - POINT OF CARE (10/28/2022 12:05 PM CDT) Glucose WB/POC 125(H) 70 - 115 mg/dL 10/28/2022 12:12 PM CDT [facility] Specimen Type Cap Fingerstick 2022 12:12 PM CDT [facility] Blood BLOOD SPECIMEN / Unknown 10/28/2022 12:05 PM CDT 10/28/2022 12:12 PM CDT Jim Walter MD LAB - POINT OF CARE ORDERABLES Performing Organization Address [facility] Co de Phone Number [address] [address], [facility] [phone] * (ABNORMAL) PTT [facility] (10/28/2022 9:20 AM CDT) APTT 72.8(H) 23.0 - 38.4 Seconds 10/28/2022 9:53 AM CDT [facility] Comment:Suggested therapeuti c range for full dose I.V. unfractionated heparin therapy for venous thromboembolism is 71 to 109 seconds. Blood BLOOD SPECIMEN / Unknown Venipuncture / Unknown 10/28/2022 9:20 AM CDT 10/28/2022 9:27 AM CDT oGod Antunez MD LAB - COAGULATION OR DERABLES Performing Organization Address [facility] Co de Phone Number [address] [address], [facility] [phone] * VANCOMYCIN LEVEL TROUGH (10/28/2022 9:20 AM CDT) Pathologist [facility] Vancomycin Trough 16.5 10.0 - 20.0 ug/mL 10/28/2022 10:29 AM CDT [facility] Blood BLOOD SPECIMEN / Unknown Venipuncture / Unknown 10/28/2022 9:20 AM CDT 10/28/2022 9:25 AM CDT Narrative [facility] - 10/28/2022 10:29 AM CDT See institution protocol. Dary Garvey MD LAB - CHEMISTRY [facility] Performing Organization Address [facility] Co de Phone Number [address] [address], [facility] [phone] * CT HEAD WO CONTRAST (10/28/2022 5:27 [...] report is dictated by Kayla Stevenson MD (residential sales) 1 I, Lonnie Rae MD have personally reviewed and interpreted this examination/study. > Interpreting Provider: Lonnie Rae MD on 10/28/2022 9:15 AM Narrative 10/28/2022 9:15 AM CDT PROCEDURE: ??CT HEAD WO CONTRAST, DATE/TIME OF EXAM: ??10/28/2022 5:28 AM, LOCATION ??[facility] INDICATION: Z91.89: At high risk for bleeding [...] DATE/TIME OF EXAM: 10/28/2022 5:28 AM, LOCATION [facility] INDICATION: Z91.89: At high risk for bleeding [...] report is dictated by Kayla Stevenson MD (residential sales) 1 Lonnie Ornelas MD have personally reviewed and interpreted this examination/study. > Interpreting Provider: Lonnie Rae MD on 10/28/2022 9:15 AM Emir Vail MD CT ORDERABLES * (ABNORMAL) GLUCOSE - POINT OF CARE (10/28/2022 4:52 AM CDT) Glucose WB/POC 151(H) 70 - 115 mg/dL 10/28/2022 4:57 AM CDT [facility] Specimen Type Cap Fingerstick 2022 4:57 AM CDT [facility] Blood BLOOD SPECIMEN / Unknown 10/28/2022 4:52 AM CDT 10/28/2022 4:57 AM CDT Jim Walter MD LAB - POINT OF CARE ORDERABLES [address] [address], [facility] [phone] * XR ABDOMEN KUB PORTABLE (10/28/2022 2:08 AM CDT) Anatomical Region Laterality Modality Abdomen Radiographic Irene ging 10/28/2022 10:4 1 AM CDT Narrative 10/28/2022 12:24 PM CDT EXAMINATION: XR ABDOMEN KUB PORTABLE HISTORY: 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 FINDINGS/IMPRESSION: Enteric tube courses below the diaphragm with the distal tip superimposing the antropyloric region. Report dictated by Martell Shetty MD (residential sales). IJacques DO have personally reviewed and interpreted this examination/study. 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 FINDINGS/IMPRESSION: Enteric tube courses below the diaphragm with the distal tipsuperimposing the antropyloric region. Report dictated by Martell Shetty MD (residential sales). I, Jacques Cole DO have personally reviewed and interpreted this examination/study. > Interpreting Provider: Jacques Cole DO on 10/28/2022 12:24 PM Jim Walter MD DIAGNOSTIC IMAGING ORDERABLES * (ABNORMAL) PTT [facility] (10/28/2022 1:25 AM CDT) APTT 81.6(H) 23.0 - 38.4 Seconds 10/28/2022 1:55 AM CDT [facility] Comment:Suggested therapeuti c range for full dose I.V. unfractionated heparin therapy for venous thromboembolism is 71 to 109 seconds. Blood BLOOD SPECIMEN / Unknown Venipuncture / Unknown 10/28/2022 1:25 AM CDT 10/28/2022 1:31 AM CDT Good Antunez MD LAB - COAGULATION OR DERABLES Performing Organization Address [facility] Co de Phone Number [address] [address], [employer] [phone] * PT-INR [facility] (10/28/2022 1:25 AM CDT) PT 13.6 12.1 - 14.8 Seconds 10/28/2022 1:55 AM CDT [facility] INR 1.0 See Comment 10/28/2022 1:55 AM CDT [facility] Comment:The suggested therap eutic range for [...] Organization Address [facility]/ZIP Co de Phone Number [address] [address], [facility] [phone] * (ABNORMAL) BASIC METABOLIC PANEL (CALCIUM TOTAL) (10/28/2022 1:25 AM CDT) Pathologist [facility] BUN 9 7 - 26 mg/dL 10/28/2022 1:57 AM [facility] Creatinine 0.54(L) 0.56 - 0.96 mg/dL 10/28/2022 1:57 AM [facility] Sodium 138 136 - 145 mmol/L 10/28/2022 1:57 AM [facility] Potassium 3.5 3.5 - 4.5 mmol/L 10/28/2022 1:57 AM [facility] Chloride 106 98 - 107 mmol/L 10/28/2022 1:57 AM [facility] CO2 26 22 - 29 mmol/L 10/28/2022 1:57 AM [facility] Glucose 134(H) 70 - 115 mg/dL 10/28/2022 1:57 AM [facility] Calcium 8.6 8.4 - 10.2 mg/dL 10/28/2022 1:57 AM [facility] Anion Gap 10 8 - 18 10/28/2022 1:57 AM [facility] BUN/Creatinine Ratio 17 7 - 23 10/28/2022 1:57 AM [facility] Osmolality Calculated 287 270 - 300 mOsm/kg 10/28/2022 1:57 AM [facility] eGFR by CKD-EPI >90 >=90 mL/min/1.7 3 m2 10/28/2022 1:57 AM [facility] Blood BLOOD SPECIMEN / Unknown Venipuncture / Unknown 10/28/2022 1:25 AM CDT 10/28/2022 1:31 AM T Emir Vail MD LAB - CHEMISTRY [facility] Organization Address City/State/ZIP Co de Phone Number [facility] [address] [place] [address], [facility] [phone] * PHOSPHORUS BLOOD (10/28/2022 1:25 AM CDT) Pathologist [facility] Phosphorus 3.9 2.9 - 5.1 mg/dL 10/28/2022 1:57 AM CDT [facility] Blood BLOOD SPECIMEN / Unknown Venipuncture / Unknown 10/28/2022 1:25 AM CDT 10/28/2022 1:31 AM CDT Emir Vail MD LAB - CHEMISTRY [facility] [address] [address], [place] [phone] * MAGNESIUM BLOOD (10/28/2022 1:25 AM CDT) Magnesium 2.0 1.6 - 2.6 mg/dL 10/28/2022 1:57 AM CDT [facility] Blood BLOOD SPECIMEN / Unknown Venipuncture / Unknown 10/28/2022 1:25 AM CDT 10/28/2022 1:31 AM CDT Emir Vail MD LAB - CHEMISTRY [facility] Performing Organization Address City/[facility]/ZIP Co de Phone Number [address] [address], [place] [phone] * (ABNORMAL) GLUCOSE - POINT OF CARE (10/28/2022 1:24 AM CDT) Glucose WB/POC 143(H) 70 - 115 mg/dL 10/28/2022 1:29 AM CDT [facility] Specimen Type Cap Fingerstick 2022 1:29 AM CDT [facility] Blood BLOOD SPECIMEN / Unknown 10/28/2022 1:24 AM CDT 10/28/2022 1:29 AM CDT Jim Walter MD LAB - POINT OF CARE ORDERABLES Performing Organization Address City/[facility]/ZIP Co de Phone Number [address] [address], [place] [phone] * (ABNORMAL) DIFFERENTIAL MANUAL (10/27/2022 8:29 PM CDT) WBC (corrected for NRBC) 21.1 10? 3 /uL 10/27/2022 9:20 PM [facility] Total Cell Count 100 10/28/19 9:20 PM [facility] Neutrophils Absolute Manual 12.87(H) 1.60 - 7.00 10? 3 /uL 10/27/2022 9:20 PM [facility] Comment:(BANDS+SEGS) x WBC = NEUT # (ANC) Lymphocyte Absolute Manual 5.91(H) 1.10 - 3.90 10? 3 /uL 10/27/2022 9:20 PM [facility] Monocytes Absolute Manual 1.48(H) 0.26 - 1.07 10? 3 /uL 10/27/2022 9:20 PM [facility] Eosinophils Absolute Manual 0.42 0.00 - 0.47 10? 3 /uL 10/27/2022 9:20 PM [facility] Band % Manual 1 0 - 10 % 10/27/2022 9:20 PM [facility] Neutrophil % Manual 60 35 - 70 % 10/27/2022 9:20 PM [facility] Lymphocyte % Manual 28 20 - 43 % 10/27/2022 9:20 PM [facility] Monocytes % Manual 7 5 - 13 % 10/27/2022 9:20 PM [facility] Eosinophils % Manual 2 0 - 6 % 10/27/2022 9:20 PM [facility] Atypical Lymphocyte % Manual 1(H) 0 % 10/27/2022 9:20 PM [facility] Metamyelocyte % Manual 1(H) 0 % 10/27/2022 9:20 PM [facility] nRBC Manual 2(H) 0 /100 WBC 10/27/2022 9:20 PM [facility] Platelet Estimate Slightly Increased(A ) Adequate 10/27/2022 9:20 PM [facility] Anisocytosis Occasional( A) None 10/27/2022 9:20 PM [facility] Polychromasia Few(A) None 10/27/2022 9:20 PM [facility] Ovalocytes Occasional( A) None 10/27/2022 9:20 PM CDT [facility] Eduardo Cells Occasional( A) None 10/27/2022 9:20 PM [facility] Blood BLOOD SPECIMEN / Unknown Venipuncture / Unknown 10/27/2022 8:29 PM CDT 10/27/2022 8:36 PM CDT Jim Walter MD LAB - HEMATOLOGY OR DERABLES Performing Organization Address City/State/[facility] Co de Phone Number [facility] [address] [place] [address], [facility] [phone] * (ABNORMAL) CBC W AUTO DIFFERENTIAL (10/27/2022 8:29 PM CDT) WBC 21.1(H) 3.5 - 10.5 10? 3 /uL 10/27/2022 8:54 PM [facility] RBC 2.52(L) 3.80 - 5.20 10? 6 /uL 10/27/2022 8:54 PM [facility] Hemoglobin 7.6(L) 12.0 - 15.6 g/dL 10/27/2022 8:54 PM [facility] Hematocrit 24.2(L) 35.0 - 45.0 % 10/27/2022 8:54 PM [facility] MCV 96.0 80.7 - 98.3 fL 10/27/2022 8:54 PM [facility] MCH 30.2 26.7 - 34.0 pg 10/27/2022 8:54 PM [facility] MCHC 31.4 30.8 - 35.9 g/dL 10/27/2022 8:54 PM [facility] RDW-SD 47.9 36.0 - 50.0 fL 10/27/2022 8:54 PM [facility] RDW-CV 13.8 11.2 - 14.8 % 10/27/2022 8:54 PM [facility] Platelet Count 486(H) 150 - 400 10? 3 /uL 10/27/2022 8:54 PM [facility] MPV 10.6 9.4 - 12.9 fL 10/27/2022 8:54 PM [facility] [facility] nRBC Absolute 0.11(H) 0 10? 3 /uL 10/27/2022 8:54 PM CDT [facility] nRBC Auto 0.5(H) 0 /100 WBC 10/27/2022 8:54 PM CDT [facility] Blood BLOOD SPECIMEN / Unknown Venipuncture / Unknown 10/27/2022 8:29 PM CDT 10/27/2022 8:36 PM CDT Jim Walter MD LAB - HEMATOLOGY OR DERABLES Performing Organization Address [facility]/ZIP Co de Phone Number [address] [address], [facility] [phone] * (ABNORMAL) PTT [facility] (10/27/2022 6:55 PM CDT) APTT 96.4(H) 23.0 - 38.4 Seconds 10/27/2022 7:28 PM CDT [facility] Comment:Suggested therapeuti c range for full dose I.V. unfractionated heparin therapy for venous thromboembolism is 71 to 109 seconds. Blood BLOOD SPECIMEN / Unknown Venipuncture / Unknown 10/27/2022 6:55 PM CDT 10/27/2022 7:06 PM CDT Jim Walter MD LAB - COAGULATION O RDERABLES Performing Organization Address [facility]/ZIP Co de Phone Number [address] [address], [place] [phone] * ANTITHROMBIN III ACTIVITY (10/27/2022 6:55 PM CDT) Antithrombin III Activity 91.0 80.0 - 120.0 % 10/27/2022 7:42 PM CDT [facility] Blood BLOOD SPECIMEN / Unknown Venipuncture / Unknown 10/27/2022 6:55 PM CDT 10/27/2022 7:06 PM CDT Narrative [facility] - 10/27/2022 7:42 PM CDT Thrombin inhibitors (i.e., hirudin, argatroban...) present in the sample to be tested may lead to an over-estimation of the AT level. Shahbaz Bowen MD LAB - COAGULATION OR DERABLES Performing Organization Address [facility]/ZIP Co de Phone Number [address] [address], [place] [phone] * (ABNORMAL) GLUCOSE - POINT OF CARE (10/27/2022 4:56 PM CDT) [facility] Glucose WB/POC 143(H) 70 - 115 mg/dL 10/27/2022 4:57 PM CDT [facility] Specimen Type Cap Fingerstick 2022 4:57 PM CDT [facility] Blood BLOOD SPECIMEN / Unknown 10/27/2022 4:56 PM CDT 10/27/2022 4:57 PM CDT Jim Walter MD LAB - POINT OF CARE ORDERABLES Performing Organization Address [facility]/ZIP Co de Phone Number [address] [address], [place] [phone] * CULTURE URINE (10/27/2022 12:08 PM CDT) Pathologist [facility] Culture Urine No growth (<100 CFU/mL) ROSELIA 10/28/2022 10:36 PM CDT [facility] Urine URINE SPECIMEN OBTAINED BY CLEAN CATCH PROCEDURE / Unknown Collection / Unknown 10/27/2022 12:08 PM CDT 10/27/2022 12:17 PM CDT Emir Vail MD LAB - MICROBIOLOGY O RDERABLES Performing Organization Address City/[facility]/ZIP Co de Phone Number [facility] [address] [place] [address], [place] [phone] * (ABNORMAL) URINALYSIS REFLEX MICROSCOPIC REFLEX CULTURE (10/27/2022 12:08 PM CDT) Color UA Yellow Straw, Yellow 10/27/2022 1:14 PM CDT [facility] Clarity UA Slt Cloudy(A) Clear 10/27/2022 1:14 PM CDT [facility] Specific Alexander UA 1.018 1.005 - 1.030 10/27/2022 1:14 PM CDT [facility] pH UA 6.0 5.0 - 8.0 pH 10/27/2022 1:14 PM CDT [facility] Protein UA Negative Negative 10/27/2022 1:14 PM CDT [facility] Glucose UA Negative Negative 10/27/2022 1:14 PM CDT [facility] Ketone UA Negative Negative 10/27/2022 1:14 PM CDT [facility] Bilirubin UA Negative Negative 10/27/2022 1:14 PM CDT [facility] Blood UA Negative Negative 10/27/2022 1:14 PM CDT [facility] Nitrite UA Negative Negative 10/27/2022 1:14 PM CDT [facility] Leukocyte Esterase Negative Negative 10/27/2022 1:14 PM CDT [facility] Urobilinogen UA Negative Negative mg/dL 10/27/2022 1:14 PM CDT [facility] Comment UA Microscopic not indicated. 10/27/2022 1:14 PM CDT [facility] Urine URINE SPECIMEN OBTAINED BY CLEAN CATCH PROCEDURE / Unknown Collection / Unknown 10/27/2022 12:08 PM CDT 10/27/2022 12:17 PM CDT Narrative [facility] - 10/27/2022 1:14 PM CDT Emir Vail MD LAB - URINALYSIS ORD ERABLES [facility] [address] [place] [phone], [facility] [phone] * MYCOPLASMA PNEUMONIAE AB IGM (10/27/2022 11:58 AM CDT) Mycoplasma Antibody IgM 0.09 <=0.76 U/L 10/29/2022 11:24 PM CDT [facility] ([facility]) Comment: INTERPRETIVE INFORMATION: ??Mycoplasma pneumoniae Ab, IgM [...] more ?than 12 months post-infection. Performed By: [facility] [address] [place] [address] Film Spooler: Boo Bond MD, PhD CLIA Number: [id number] Blood BLOOD SPECIMEN / Unknown Venipuncture / Unknown 10/27/2022 11:58 AM CDT 10/27/2022 12:17 PM CDT Emir Vail MD LAB - SEROLOGY ORDER NISSA [facility] [employer] ([facility]) [address] [place] [address], [facility] * MYCOPLASMA PNEUMONIAE AB IGG (10/27/2022 11:58 AM CDT) Pathologist [facility] Mycoplasma Antibody IgG 0.05 <=0.09 U/L 10/29/2022 11:24 PM CDT [facility] ([facility]) Comment: INTERPRETIVE INFORMATION: ??Mycoplasma pneumoniae Ab, IgG [...] other is below 0.20 U/L. Performed By: [facility] [address] [place] [address] Film Spooler: Boo Bond MD, PhD CLIA Number: [id number] Blood BLOOD SPECIMEN / Unknown Venipuncture / Unknown 10/27/2022 11:58 AM CDT 10/27/2022 12:16 PM CDT Emir Vail MD LAB - SEROLOGY ORDER NISSA [facility] [address] [place] [address], [facility] * CHLAMYDIA ANTIBODY IGG/IGM PANEL (10/27/2022 11:58 AM CDT) C Pneumoniae Antibody IgG Titer <1:64 <1:64 10/29/2022 8:32 PM CDT [facility] ([facility]) Chlamydia Pneumoniae Antibody IgM Titer <1:20 <1:20 10/29/2022 8:32 PM CDT [facility]) Chlamydia trachomatis Antibody IgM Titer <1:20 <1:20 10/29/2022 8:32 PM CDT [facility]) Chlamydia psittacI Antibody IgM Titer <1:20 <1:20 10/29/2022 8:32 PM CDT [facility]) Chlamydia trachomatis Antibody IgG Titer <1:64 <1:64 10/29/2022 8:32 PM CDT [facility]) Chlamydia psittacI Antibody IgG Titer <1:64 <1:64 10/29/2022 8:32 PM CDT [facility]) Comment: INTERPRETIVE INFORMATION: C. psittaci IgG Titer [...] developed and its performance characteristics determined by [employer]. It has not been cleared or approved by the [place] Food and Drug Administration. This test was performed in a CLIA certified laboratory and is intended for clinical purposes. Performed By: [facility] [address] [place] [address] Film Spooler: Boo Bond MD, PhD CLIA Number: [id number] Blood BLOOD SPECIMEN / Unknown Venipuncture / Unknown 10/27/2022 11:58 AM CDT 10/27/2022 12:17 PM CDT Emir Vail MD LAB - CHEMISTRY [place] [employer] ([facility]) [address] [place] [address], [facility] * Q FEVER IGG/IGM AB PANEL RFLX TITER (10/27/2022 11:58 AM CDT) [facility] Coxiella burnetii Antibody IgG Phase 1 Screen Negative Negative 10/31/2022 12:29 AM CDT [employer] ([facility]) Comment: INTERPRETIVE INFORMATION: C. Burnetii Abs, IgG [...] 2 Screen Negative Negative 10/31/2022 12:29 AM [facility] ([facility]) Comment: INTERPRETIVE INFORMATION: C. Burnetii Abs, IgG [...] 1 Screen Negative Negative 10/31/2022 12:29 AM [facility] ([facility]) Comment: Coxiella burnetii (Q-Fever) Antibody IgM, Phase [...] 2 Screen Negative Negative 10/31/2022 12:29 AM [facility] ([facility]) Comment: Coxiella burnetii (Q-Fever) Antibody IgM, Phase [...] acute infection or during convalescence. Performed By: [facility] [address] [place] [address] Film Spooler: Boo Bond MD, PhD CLIA Number: [id number] Blood BLOOD SPECIMEN / Unknown Venipuncture / Unknown 10/27/2022 11:58 AM CDT 10/27/2022 12:16 PM CDT Emir Vail MD LAB - SEROLOGY ORDER NISSA [facility]) [address] [place] [address] * BARTONELLA SPECIES PCR (10/27/2022 11:58 AM CDT) [facility] Bartonella Source Plasma 023 3:38 PM CDT [facility]) Bartonella Species by PCR Not Detected 2022 3:38 PM CDT [facility]) Comment: NOT DETECTED - A negative result does not rule out the presence of PCR inhibitors in the patient specimen or assay specific nucleic acid in concentrations below the level of detection by the assay. INTERPRETIVE INFORMATION: Bartonella Species Detection by PCR This test was developed and its performance characteristics determined by [facility]. It has not been cleared or approved by the [place] Food and Drug Administration. This test was performed in a CLIA certified laboratory and is intended for clinical purposes. Performed By: [facility] [address] [place] [address] Film Spooler: Boo Bond MD, PhD CLIA Number: [id number] Blood BLOOD SPECIMEN / Unknown Venipuncture / Unknown 10/27/2022 11:58 AM CDT 10/27/2022 12:16 PM CDT Emir Vail MD LAB - MICROBIOLOGY O RDERABLES [facility] [employer] ([facility]) [address] [place] [address], [facility] * BARTONELLA HENSELAE ANTIBODY IGG (10/27/2022 11:58 AM CDT) Bartonella henselae Antibody IgG <1:64 10/29/2022 8:[address] [facility] [employer] ([facility]) Comment: INTERPRETIVE INFORMATION: Bartonella henselae Ab, IgG [...] developed and its performance characteristics determined by [facility]. It has not been cleared or approved by the US Food and Drug Administration. This test was performed in a CLIA certified laboratory and is intended for clinical purposes. Performed By: [facility] [address] [place] [address] Film Spooler: Boo Bond MD, PhD CLIA Number: [id number] Blood BLOOD SPECIMEN / Unknown Venipuncture / Unknown 10/27/2022 11:58 AM CDT 10/27/2022 12:16 PM CDT Emir Vail MD LAB - SEROLOGY ORDER NISSA [facility]) [address] [place] [address], [facility] * BARTONELLA HENSELAE ANTIBODY IGM (10/27/2022 11:58 AM CDT) Bartonella henselae Antibody IgM < 1:16 10/29/2022 8:33 PM CDT [facility] ([facility]) Comment: INTERPRETIVE INFORMATION: Bartonella henselae Antibody, IgM [...] developed and its performance characteristics determined by [employer]. It has not been cleared or approved by the US Food and Drug Administration. This test was performed in a CLIA certified laboratory and is intended for clinical purposes. Performed By: [facility] [employer] [address] [place] [address] Film Spooler: Boo Bond MD, PhD CLIA Number: [id number] Blood BLOOD SPECIMEN / Unknown Venipuncture / Unknown 10/27/2022 11:58 AM CDT 10/27/2022 12:16 PM CDT Emir Vail MD LAB - SEROLOGY ORDER NISSA Performing Organization Address [facility] Co de Phone Number [facility] ([facility]) [address] [place] [address] * CULTURE BLOOD AFB (10/27/2022 11:58 AM CDT) Culture No acid-fast bacillus isolated 12/04/2022 6:56 AM CDT [facility] Blood PERIPHERAL BLOOD / Unknown Venipuncture / Unknown 10/27/2022 11:58 AM CDT 10/27/2022 12:13 PM CDT Emir Vail MD LAB - MICROBIOLOGY O RDERABLES Performing Organization Address [facility] Co de Phone Number [facility] [address] [place] [address], [facility] [phone] * CULTURE BLOOD FUNGUS (10/27/2022 11:58 AM CDT) Culture No fungus isolated ROSELIA 12/04/2022 6:38 AM CDT [facility] Blood PERIPHERAL BLOOD / Unknown Venipuncture / Unknown 10/27/2022 11:58 AM CDT 10/27/2022 12:13 PM CDT Emir Vail MD LAB - MICROBIOLOGY O RDERABLES Performing Organization Address City/[facility]/ZIP Co de Phone Number [facility] [address] [place] [id number] [phone] * (ABNORMAL) PTT [facility] (10/27/2022 11:58 AM CDT) APTT 44.7(H) 23.0 - 38.4 Seconds 10/27/2022 1:19 PM CDT [facility] Comment:Suggested therapeuti c range for full dose I.V. unfractionated heparin therapy for venous thromboembolism is 71 to 109 seconds. Blood BLOOD SPECIMEN / Unknown Venipuncture / Unknown 10/27/2022 11:58 AM CDT 10/27/2022 12:39 PM CDT Emir Vail MD LAB - COAGULATION OR DERABLES [facility] [address] [place] [address], [facility] [phone] * (ABNORMAL) GLUCOSE - POINT OF CARE (10/27/2022 11:13 AM CDT) Pathologist [facility] Glucose WB/POC 140(H) 70 - 115 mg/dL 10/27/2022 11:16 AM CDT [facility] Specimen Type Cap Fingerstick 2022 11:16 AM CDT [facility] Blood BLOOD SPECIMEN / Unknown 10/27/2022 11:13 AM CDT 10/27/2022 11:16 AM CDT Emir Vail MD LAB - POINT OF CARE ORDERABLES [facility] [address] [place] [address], [place] [phone] * XR CHEST 1VW PORTABLE (10/27/2022 10:19 AM CDT) Anatomical Region Laterality Modality Chest Radiographic Irene ging 10/27/2022 1:44 PM CDT Narrative 10/27/2022 2:58 PM CDT PROCEDURE: ??XR CHEST 1VW PORTABLE, DATE/TIME OF EXAM: ??10/27/2022 10:19 AM, LOCATION ??[facility] INDICATION: D72.829: Leukocytosis, unspecified type ADDITIONAL CLINICAL INFORMATION: Ordering Provider Reason For Exam: ??any concern for pneumonia COMPARISON: Chest radiograph dated 10/25/2022. FINDINGS/IMPRESSION: Enteric tube courses below the diaphragm and out of the nygjx-ze-nsjm. RUQ surgical clips are present. No focal consolidation. No pleural effusion or pneumothorax. The cardiomediastinal silhouette is normal. Report dictated by Agnes Olmos DO (residential sales). Pepe Ornelas MD have personally reviewed and interpreted this examination/study. > Interpreting Provider: Pepe Gonzalez MD on 10/27/2022 2:58 PM Procedure Note Pepe Gonzalez MD - 10/27/2022 PROCEDURE: XR CHEST 1VW PORTABLE, DATE/TIME OF EXAM: 10/27/2022 10:19AM, LOCATION [facility] INDICATION: D72.829: Leukocytosis, unspecified type ADDITIONAL CLINICAL INFORMATION: Ordering Provider Reason For Exam: any concern for pneumonia COMPARISON: Chest radiograph dated 10/25/2022. FINDINGS/IMPRESSION: Enteric tube courses below the diaphragm and out of the czlcj-qw-ztxo.RUQ surgical clips are present. No focal consolidation. No pleural effusion or pneumothorax. The cardiomediastinal silhouette is normal. Report dictated by Agnes Olmos DO (residential sales). Pepe Ornelas MD have personally reviewed and interpreted this examination/study. > Interpreting Provider: Pepe Gonzalez MD on 10/27/2022 2:58 PM Emir Vail MD DIAGNOSTIC IMAGING O DIONI * (ABNORMAL) GLUCOSE - POINT OF CARE (10/27/2022 6:33 AM CDT) Glucose WB/POC 128(H) 70 - 115 mg/dL 10/27/2022 6:39 AM CDT [facility] Specimen Type Cap Fingerstick 2022 6:39 AM CDT [facility] Blood BLOOD SPECIMEN / Unknown 10/27/2022 6:33 AM CDT 10/27/2022 6:39 AM CDT Emir Vail MD LAB - POINT OF CARE ORDERABLES Performing Organization Address [facility] Co de Phone Number [facility] [address] [place] [phone], [facility] [phone] * (ABNORMAL) PTT [facility] (10/27/2022 6:08 AM CDT) APTT 58.6(H) 23.0 - 38.4 Seconds 10/27/2022 6:37 AM CDT [facility] Comment:Suggested therapeuti c range for full dose I.V. unfractionated heparin therapy for venous thromboembolism is 71 to 109 seconds. Blood BLOOD SPECIMEN / Unknown Venipuncture / Unknown 10/27/2022 6:08 AM CDT 10/27/2022 6:14 AM CDT Emir Vail MD LAB - COAGULATION OR DERABLES Performing Organization Address [facility] Co de Phone Number [address] [address], [facility] [phone] * PT-INR [facility] (10/27/2022 6:08 AM CDT) PT 13.7 12.1 - 14.8 Seconds 10/27/2022 6:36 AM CDT [facility] INR 1.1 See Comment 10/27/2022 6:36 AM CDT [facility] Comment:The suggested therap eutic range for [...] Organization Address [facility] Co de Phone Number [facility] [address] [place] [phone], [facility] [phone] * CT HEAD WO CONTRAST (10/27/2022 5:54 [...] DATE/TIME OF EXAM: ??10/27/2022 5:54 AM, LOCATION ??[facility] INDICATION: I63.511: Right middle cerebral [...] DATE/TIME OF EXAM: 10/27/2022 5:54 AM, LOCATION [facility] INDICATION: I63.511: Right middle cerebral [...] 19.5 10? 3 /uL 10/27/2022 4:31 AM [facility] Total Cell Count 100 10/28/19 4:31 AM [facility] Neutrophils Absolute Manual 12.09(H) 1.60 - 7.00 10? 3 /uL 10/27/2022 4:31 AM [facility] Comment:(BANDS+SEGS) x WBC = NEUT # (ANC) Lymphocyte Absolute Manual 5.07(H) 1.10 - 3.90 10? 3 /uL 10/27/2022 4:31 AM [facility] Monocytes Absolute Manual 0.78 0.26 - 1.07 10? 3 /uL 10/27/2022 4:31 AM [facility] Eosinophils Absolute Manual 1.17(H) 0.00 - 0.47 10? 3 /uL 10/27/2022 4:31 AM [facility] Neutrophil % Manual 62 35 - 70 % 10/27/2022 4:31 AM [facility] Lymphocyte % Manual 26 20 - 43 % 10/27/2022 4:31 AM [facility] Monocytes % Manual 4(L) 5 - 13 % 10/27/2022 4:31 AM [facility] Eosinophils % Manual 6 0 - 6 % 10/27/2022 4:31 AM [facility] Metamyelocyte % Manual 1(H) 0 % 10/27/2022 4:31 AM [facility] Myelocytes % Manual 1(H) 0 % 10/27/2022 4:31 AM [facility] Platelet Estimate Increased (A) Adequate 10/27/2022 4:31 AM [facility] Polychromasia Occasiona l(A) None 10/27/2022 4:31 AM [facility] Ovalocytes Occasiona l(A) None 10/27/2022 4:31 AM [facility] Riverside Cells Occasiona l(A) None 10/27/2022 4:31 AM [facility] Tear Drop Cells Occasiona l(A) None 10/27/2022 4:31 AM [facility] Smudge Cells Rare(A) None 10/27/2022 4:31 AM [facility] Large Platelet Count Occasiona l(A) None 10/27/2022 4:31 AM CDT [facility] Blood BLOOD SPECIMEN / Unknown Venipuncture / Unknown 10/27/2022 12:54 AM CDT 10/27/2022 1:02 AM CDT Emir Vail MD LAB - HEMATOLOGY ORD ERABLES Performing Organization Address City/[facility]/ZIP Co de Phone Number [address] [address], [facility] [phone] * (ABNORMAL) PTT [facility] (10/27/2022 12:54 AM CDT) APTT 59.5(H) 23.0 - 38.4 Seconds 10/27/2022 1:25 AM T [facility] Comment:Suggested therapeuti c range for full dose I.V. unfractionated heparin therapy for venous thromboembolism is 71 to 109 seconds. Blood BLOOD SPECIMEN / Unknown Venipuncture / Unknown 10/27/2022 12:54 AM CDT 10/27/2022 1:02 AM CDT Emir Vail MD LAB - COAGULATION OR DERABLES Performing Organization Address [facility]/ZIP Co de Phone Number [address] [address], [facility] [phone] * (ABNORMAL) BASIC METABOLIC PANEL (CALCIUM TOTAL) (10/27/2022 12:54 AM CDT) BUN 11 7 - 26 mg/dL 10/27/2022 1:28 AM CDT [facility] Creatinine 0.53(L) 0.56 - 0.96 mg/dL 10/27/2022 1:28 AM CDT [facility] Sodium 138 136 - 145 mmol/L 10/27/2022 1:28 AM T [facility] Potassium 3.5 3.5 - 4.5 mmol/L 10/27/2022 1:28 AM T [facility] Chloride 107 98 - 107 mmol/L 10/27/2022 1:28 AM CDT [facility] CO2 24 22 - 29 mmol/L 10/27/2022 1:28 AM [facility] Glucose 137(H) 70 - 115 mg/dL 10/27/2022 1:28 AM [facility] Calcium 8.4 8.4 - 10.2 mg/dL 10/27/2022 1:28 AM [facility] Anion Gap 11 8 - 18 10/27/2022 1:28 AM [facility] BUN/Creatinine Ratio 21 7 - 23 10/27/2022 1:28 AM [facility] Osmolality Calculated 288 270 - 300 mOsm/kg 10/27/2022 1:28 AM [facility] eGFR by CKD-EPI >90 >=90 mL/min/1.7 3 m2 10/27/2022 1:28 AM [facility] Blood BLOOD SPECIMEN / Unknown Venipuncture / Unknown 10/27/2022 12:54 AM CDT 10/27/2022 1:02 AM T Emir Vail MD LAB - CHEMISTRY ORDE [facility] Organization Address City/State/ZIP Co de Phone Number [facility] [address] [place] [address], [facility] [phone] * (ABNORMAL) CBC W AUTO DIFFERENTIAL (10/27/2022 12:54 AM CDT) WBC 19.5(H) 3.5 - 10.5 10? 3 /uL 10/27/2022 1:23 AM [facility] RBC 2.60(L) 3.80 - 5.20 10? 6 /uL 10/27/2022 1:23 AM [facility] Hemoglobin 8.0(L) 12.0 - 15.6 g/dL 10/27/2022 1:23 AM [facility] Hematocrit 24.6(L) 35.0 - 45.0 % 10/27/2022 1:23 AM [facility] MCV 94.6 80.7 - 98.3 fL 10/27/2022 1:23 AM [facility] MCH 30.8 26.7 - 34.0 pg 10/27/2022 1:23 AM CDT [facility] MCHC 32.5 30.8 - 35.9 g/dL 10/27/2022 1:23 AM [facility] RDW-SD 45.8 36.0 - 50.0 fL 10/27/2022 1:23 AM [facility] RDW-CV 13.5 11.2 - 14.8 % 10/27/2022 1:23 AM [facility] Platelet Count 519(H) 150 - 400 10? 3 /uL 10/27/2022 1:23 AM T [facility] MPV 10.1 9.4 - 12.9 fL 10/27/2022 1:23 AM [facility] nRBC Absolute 0.08(H) 0 10? 3 /uL 10/27/2022 1:23 AM [facility] nRBC Auto 0.4(H) 0 /100 WBC 10/27/2022 1:23 AM T [facility] Blood BLOOD SPECIMEN / Unknown Venipuncture / Unknown 10/27/2022 12:54 AM CDT 10/27/2022 1:02 AM CDT Emir Vail MD LAB - HEMATOLOGY ORD ERABLES [address] [address], [place] [phone] * PHOSPHORUS BLOOD (10/27/2022 12:54 AM CDT) Phosphorus 3.5 2.9 - 5.1 mg/dL 10/27/2022 1:28 AM T [facility] Blood BLOOD SPECIMEN / Unknown Venipuncture / Unknown 10/27/2022 12:54 AM CDT 10/27/2022 1:02 AM CDT Emir Vail MD LAB - CHEMISTRY ORDE HIRAL [address] [address], [place] [phone] * MAGNESIUM BLOOD (10/27/2022 12:54 AM CDT) Magnesium 2.0 1.6 - 2.6 mg/dL 10/27/2022 1:28 AM CDT [facility] Blood BLOOD SPECIMEN / Unknown Venipuncture / Unknown 10/27/2022 12:54 AM CDT 10/27/2022 1:02 AM CDT Emir Vail MD LAB - CHEMISTRY [facility] Performing Organization Address City/[facility]/ZIP Co de Phone Number [facility] [address] [place] [id number], [place] [phone] * (ABNORMAL) PTT [facility] (10/26/2022 9:12 PM CDT) APTT 65.0(H) 23.0 - 38.4 Seconds 10/26/2022 9:46 PM CDT [facility] Comment:Suggested therapeuti c range for full dose I.V. unfractionated heparin therapy for venous thromboembolism is 71 to 109 seconds. Blood BLOOD SPECIMEN / Unknown Venipuncture / Unknown 10/26/2022 9:12 PM CDT 10/26/2022 9:18 PM CDT Emir Vail MD LAB - COAGULATION OR DERABLES Performing Organization Address [facility] Co de Phone Number [address] [address], [place] [phone] * (ABNORMAL) GLUCOSE - POINT OF CARE (10/26/2022 6:33 PM CDT) Glucose WB/POC 122(H) 70 - 115 mg/dL 10/26/2022 6:34 PM CDT [facility] Specimen Type Cap Fingerstick 2022 6:34 PM CDT [facility] Blood BLOOD SPECIMEN / Unknown 10/26/2022 6:33 PM CDT 10/26/2022 6:34 PM CDT Emir Vail MD LAB - POINT OF CARE ORDERABLES Performing Organization Address City/[facility] Co de Phone Number [facility] [address] [place] [address], [facility] [phone] * (ABNORMAL) PTT [facility] (10/26/2022 3:59 PM CDT) APTT 52.9(H) 23.0 - 38.4 Seconds 10/26/2022 4:35 PM CDT [facility] Comment:Suggested therapeuti c range for full dose I.V. unfractionated heparin therapy for venous thromboembolism is 71 to 109 seconds. Blood BLOOD SPECIMEN / Unknown Venipuncture / Unknown 10/26/2022 3:59 PM CDT 10/26/2022 4:12 PM CDT Emir Vail MD LAB - COAGULATION OR DERABLES Performing Organization Address [facility] de Phone Number [facility] [address] [place] [address], [facility] [phone] * VAS ARTERIAL MULTILEVEL LE (10/26/2022 2:59 PM CDT) Anatomical Region Laterality Modality Intravascular Ul trasound 10/26/2022 1:32 AM CDT Narrative Procedure Note Daniella Jose MD - 10/27/2022 Emir Vail MD VASCULAR LAB ORDERAB LES * (ABNORMAL) GLUCOSE - POINT OF CARE (10/26/2022 12:15 PM CDT) Glucose WB/POC 122(H) 70 - 115 mg/dL 10/26/2022 12:16 PM CDT [facility] Specimen Type Cap Fingerstick 2022 12:16 PM CDT [facility] Blood BLOOD SPECIMEN / Unknown 10/26/2022 12:15 PM CDT 10/26/2022 12:16 PM CDT Emir Vail MD LAB - POINT OF CARE ORDERABLES Performing Organization Address [facility]/State/ZIP Co de Phone Number [facility] [address] [place] [address], [facility] [phone] * (ABNORMAL) PTT [facility] (10/26/2022 11:24 AM CDT) Pathologist [facility] APTT 51.1(H) 23.0 - 38.4 Seconds 10/26/2022 11:55 AM CDT [facility] Comment:Suggested therapeuti c range for full dose I.V. unfractionated heparin therapy for venous thromboembolism is 71 to 109 seconds. Blood BLOOD SPECIMEN / Unknown Venipuncture / Unknown 10/26/2022 11:24 AM CDT 10/26/2022 11:31 AM CDT Emir Vail MD LAB - COAGULATION OR DERABLES Performing Organization Address City/[facility]/ZIP Co de Phone Number [address] [address], [facility] [phone] * VANCOMYCIN LEVEL TROUGH (10/26/2022 8:38 AM CDT) [facility] Vancomycin Trough 14.0 10.0 - 20.0 ug/mL 10/26/2022 9:59 AM CDT [facility] Blood BLOOD SPECIMEN / Unknown Venipuncture / Unknown 10/26/2022 8:38 AM CDT 10/26/2022 8:45 AM CDT Narrative [facility] - 10/26/2022 9:59 AM CDT See institution protocol. Emir Vail MD LAB - CHEMISTRY ORDE RABLES [address] [address], [facility] [phone] * LAB MISC TEST (10/26/2022 7:37 AM CDT) Pathologist [facility] Test Name mycoplasma PCR , blood 12/09/2022 1:25 PM CDT [facility] Test Result See Scanned Report 12/09/2022 1:25 PM CDT [facility] Comment Ref Lab [facility] 12/09/2022 1:25 PM CDT [facility] Blood BLOOD SPECIMEN / Unknown Venipuncture / Unknown 10/26/2022 7:37 AM CDT 10/26/2022 7:39 AM CDT Emir Vail MD LAB SEND OUT Performing Organization Address City/[facility]/ZIP Co de Phone Number [facility] [address] [place] [address] * (ABNORMAL) GLUCOSE - POINT OF CARE (10/26/2022 7:12 AM CDT) Glucose WB/POC 144(H) 70 - 115 mg/dL 10/26/2022 7:13 AM CDT [facility] Specimen Type Cap Fingerstick 2022 7:13 AM CDT [facility] Blood BLOOD SPECIMEN / Unknown 10/26/2022 7:12 AM CDT 10/26/2022 7:13 AM CDT Emir Vail MD LAB - POINT OF CARE ORDERABLES Performing Organization Address [facility]/ZIP Co de Phone Number [address] [address], [place] [phone] * (ABNORMAL) PTT [facility] (10/26/2022 6:47 AM CDT) APTT 44.3(H) 23.0 - 38.4 Seconds 10/26/2022 7:17 AM CDT [facility] Comment:Suggested therapeuti c range for full dose I.V. unfractionated heparin therapy for venous thromboembolism is 71 to 109 seconds. Blood BLOOD SPECIMEN / Unknown Venipuncture / Unknown 10/26/2022 6:47 AM CDT 10/26/2022 6:52 AM CDT Emir Vail MD LAB - COAGULATION OR DERABLES Performing Organization Address City/[facility]/ZIP Co de Phone Number [address] [address], [place] [phone] * CT HEAD WO CONTRAST (10/26/2022 4:55 [...] report is dictated by Miranda Bowen MD (residential sales) I, Oriana Suarez MD have personally reviewed and interpreted this examination/study. 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 > Interpreting Provider: Oriana Suarez MD on 10/26/2022 8:19 AM Emir Vail MD CT ORDERABLES * PT-INR [facility] (10/26/2022 4:26 AM CDT) PT 13.6 12.1 - 14.8 Seconds 10/26/2022 4:59 AM CDT [facility] INR 1.0 See Comment 10/26/2022 4:59 AM CDT [facility] Comment:The suggested therap eutic range for [...] Organization Address [facility]/ZIP Co de Phone Number [address] [address], [facility] [phone] * (ABNORMAL) PTT [facility] (10/26/2022 1:55 AM CDT) APTT 20.5(L) 23.0 - 38.4 Seconds 10/26/2022 2:26 AM CDT [facility] Comment:Suggested therapeuti c range for full dose I.V. unfractionated heparin therapy for venous thromboembolism is 71 to 109 seconds. Blood BLOOD SPECIMEN / Unknown Venipuncture / Unknown 10/26/2022 1:55 AM CDT 10/26/2022 2:00 AM CDT Emir Vail MD LAB - COAGULATION OR DERABLES [address] [address], [facility] [phone] * (ABNORMAL) BASIC METABOLIC PANEL (CALCIUM TOTAL) (10/26/2022 12:02 AM CDT) BUN 13 7 - 26 mg/dL 10/26/2022 12:30 AM CDT [facility] Creatinine 0.54(L) 0.56 - 0.96 mg/dL 10/26/2022 12:30 AM CDT [facility] Sodium 139 136 - 145 mmol/L 10/26/2022 12:30 AM [facility] Potassium 3.3(L) 3.5 - 4.5 mmol/L 10/26/2022 12:30 AM [facility] Chloride 105 98 - 107 mmol/L 10/26/2022 12:30 AM [facility] CO2 24 22 - 29 mmol/L 10/26/2022 12:30 AM [facility] Glucose 113 70 - 115 mg/dL 10/26/2022 12:30 AM [facility] Calcium 8.4 8.4 - 10.2 mg/dL 10/26/2022 12:30 AM [facility] Anion Gap 13 8 - 18 10/26/2022 12:30 AM [facility] BUN/Creatinine Ratio 24(H) 7 - 23 10/26/2022 12:30 AM [facility] Osmolality Calculated 289 270 - 300 mOsm/kg 10/26/2022 12:30 AM [facility] eGFR by CKD-EPI >90 >=90 mL/min/1.7 3 m2 10/26/2022 12:30 AM [facility] Blood BLOOD SPECIMEN / Unknown Venipuncture / Unknown 10/26/2022 12:02 AM CDT 10/26/2022 12:06 AM T Emir Vail MD LAB - CHEMISTRY BIBIANA BLACKMAN [facility] Organization Address City/State/[facility] Co de Phone Number [facility] [address] [place] [address], [facility] [phone] * (ABNORMAL) CBC W AUTO DIFFERENTIAL (10/26/2022 12:02 AM CDT) WBC 16.1(H) 3.5 - 10.5 10? 3 /uL 10/26/2022 12:12 AM [facility] RBC 2.64(L) 3.80 - 5.20 10? 6 /uL 10/26/2022 12:12 AM [facility] Hemoglobin 8.1(L) 12.0 - 15.6 g/dL 10/26/2022 12:12 AM [facility] Hematocrit 25.1(L) 35.0 - 45.0 % 10/26/2022 12:12 AM [facility] MCV 95.1 80.7 - 98.3 fL 10/26/2022 12:12 AM [facility] MCH 30.7 26.7 - 34.0 pg 10/26/2022 12:12 AM [facility] MCHC 32.3 30.8 - 35.9 g/dL 10/26/2022 12:12 AM [facility] RDW-SD 46.2 36.0 - 50.0 fL 10/26/2022 12:12 AM [facility] RDW-CV 13.5 11.2 - 14.8 % 10/26/2022 12:12 AM [facility] Platelet Count 446(H) 150 - 400 10? 3 /uL 10/26/2022 12:12 AM [facility] MPV 10.0 9.4 - 12.9 fL 10/26/2022 12:12 AM [facility] nRBC Absolute 0.04(H) 0 10? 3 /uL 10/26/2022 12:12 AM [facility] nRBC Auto 0.2(H) 0 /100 WBC 10/26/2022 12:12 AM [facility] Neutrophils % 63.5 35.0 - 70.0 % 10/26/2022 12:12 AM [facility] Lymphocytes % 22.7 20.0 - 43.0 % 10/26/2022 12:12 AM [facility] Monocytes % 8.3 5.0 - 13.0 % 10/26/2022 12:12 AM [facility] Eosinophils % 3.2 0.0 - 6.0 % 10/26/2022 12:12 AM [facility] Basophil % 0.4 0.0 - 2.0 % 10/26/2022 12:12 AM [facility] Neutrophils Absolute 10.24(H) 1.60 - 7.00 10? 3 /uL 10/26/2022 12:12 AM [facility] Lymphocyte Absolute 3.65 1.10 - 3.90 10? 3 /uL 10/26/2022 12:12 AM CDT [facility] Monocytes Absolute 1.34(H) 0.26 - 1.07 10? 3 /uL 10/26/2022 12:12 AM CDT [facility] Eosinophils Absolute 0.51(H) 0.00 - 0.47 10? 3 /uL 10/26/2022 12:12 AM CDT [facility] Basophils Absolute 0.06 0.00 - 0.08 10? 3 /uL 10/26/2022 12:12 AM CDT [facility] Immature Granulocytes % 1.9(H) 0.0 - 1.0 % 10/26/2022 12:12 AM CDT [facility] Immature Granulocytes Absolute 0.30 10/26/2022 12:12 AM CDT [facility] Blood BLOOD SPECIMEN / Unknown Venipuncture / Unknown 10/26/2022 12:02 AM CDT 10/26/2022 12:06 AM CDT Emir Vail MD LAB - HEMATOLOGY ORD ERABLES [address] [address], [facility] [phone] * PHOSPHORUS BLOOD (10/26/2022 12:02 AM CDT) Phosphorus 3.5 2.9 - 5.1 mg/dL 10/26/2022 12:30 AM T [facility] Blood BLOOD SPECIMEN / Unknown Venipuncture / Unknown 10/26/2022 12:02 AM CDT 10/26/2022 12:06 AM CDT Emir Vail MD LAB - CHEMISTRY ORDDanyelle BLACKMAN [address] [address], [facility] [phone] * MAGNESIUM BLOOD (10/26/2022 12:02 AM CDT) Magnesium 1.9 1.6 - 2.6 mg/dL 10/26/2022 12:30 AM CDT [facility] Blood BLOOD SPECIMEN / Unknown Venipuncture / Unknown 10/26/2022 12:02 AM CDT 10/26/2022 12:06 AM CDT Emir Vail MD LAB - CHEMISTRY BIBIANA BLACKMAN Performing Organization Address City/[facility]/ZIP Co de Phone Number [facility] [address] [place] [address], [place] [phone] * GLUCOSE - POINT OF CARE (10/25/2022 11:14 PM CDT) Glucose WB/POC 114 70 - 115 mg/dL 10/25/2022 11:15 PM CDT [facility] Specimen Type Cap Fingerstick 2022 11:15 PM CDT [facility] Blood BLOOD SPECIMEN / Unknown 10/25/2022 11:14 PM CDT 10/25/2022 11:15 PM CDT Emir Vail MD LAB - POINT OF CARE ORDERABLES Performing Organization Address [facility]/ZIP Co de Phone Number [address] [address], [place] [phone] * PTT [facility] (10/25/2022 9:02 PM CDT) APTT 33.3 23.0 - 38.4 Seconds 10/25/2022 9:32 PM CDT [facility] Comment:Suggested therapeuti c range for full dose I.V. unfractionated heparin therapy for venous thromboembolism is 71 to 109 seconds. Blood BLOOD SPECIMEN / Unknown Venipuncture / Unknown 10/25/2022 9:02 PM CDT 10/25/2022 9:10 PM CDT Emir Vail MD LAB - COAGULATION OR DERABLES Performing Organization Address City/[facility]/ZIP Co de Phone Number [facility] [address] [place] [address], [place] [phone] * (ABNORMAL) GLUCOSE - POINT OF CARE (10/25/2022 6:54 PM CDT) Glucose WB/POC 122(H) 70 - 115 mg/dL 10/25/2022 6:56 PM CDT [facility] Specimen Type Cap Fingerstick 2022 6:56 PM CDT [facility] Blood BLOOD SPECIMEN / Unknown 10/25/2022 6:54 PM CDT 10/25/2022 6:55 PM CDT Emir Vail MD LAB - POINT OF CARE ORDERABLES Performing Organization Address [facility]/ZIP Co de Phone Number [address] [address], [facility] [phone] * PTT [facility] (10/25/2022 4:41 PM CDT) APTT 24.8 23.0 - 38.4 Seconds 10/25/2022 5:19 PM CDT [facility] Comment:Suggested therapeuti c range for full dose I.V. unfractionated heparin therapy for venous thromboembolism is 71 to 109 seconds. Blood BLOOD SPECIMEN / Unknown Venipuncture / Unknown 10/25/2022 4:41 PM CDT 10/25/2022 4:55 PM CDT Emir Vail MD LAB - COAGULATION OR DERABLES Performing Organization Address [facility] Co de Phone Number [address] [address], [place] [phone] * PT-INR [facility] (10/25/2022 4:41 PM CDT) PT 13.4 12.1 - 14.8 Seconds 10/25/2022 5:19 PM CDT [facility] INR 1.0 See Comment 10/25/2022 5:19 PM CDT [facility] Comment:The suggested therap eutic range for standard coumadin (warfarin) therapy is an INR of 2.0-3.0. For high-risk patients (Mechanical Mitral Valve Prosthesis, etc.), the suggested prophylactic therapeutic range is an INR of 2.5-3.5. Blood BLOOD SPECIMEN / Unknown Venipuncture / Unknown 10/25/2022 4:41 PM CDT 10/25/2022 4:55 PM CDT Emir Vail MD LAB - COAGULATION OR DERABLES [facility] [address] [place] [address], [facility] [phone] * CT CHEST ABDOMEN PELVIS W CONT [...] verification. > Dictated by Clarisa Cantrell MD (residential sales). I, Alexx Lopez have personally reviewed and interpreted this examination/study. > Interpreting Provider: Alexx Lopez on 10/25/2022 4:16 PM Narrative 10/25/2022 4:16 PM CDT PROCEDURE: ??CT CHEST ABDOMEN PELVIS W CONT, DATE/TIME OF EXAM: ??10/25/2022 12:56 PM, LOCATION ??[facility] INDICATION: I63.511: Right middle cerebral [...] CONT, DATE/TIME OF EXAM:10/25/2022 12:56 PM, LOCATION [facility] INDICATION: I63.511: Right middle cerebral [...] verification. > Dictated by Clarisa Cantrell MD (residential sales). I, Alexx Lopez have personally reviewed and [...] report is dictated by Miranda Bowen MD (residential sales) I, Joni Fabian MD have personally reviewed and interpreted this examination/study. 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 Enteric tube courses below the diaphragm and out of the [id number]. There is severe left rotation of the patient in this study. There is no focal consolidation, pleural effusion, or pneumothorax. The left upper lobe pulmonary nodule noted on chest CT from same day is not visualized on this plain film. The cardiomediastinal silhouette is normal. The visible bony thorax is intact. Report dictated by Royer Stovall MD (residential sales). Alexx Ornelas have personally reviewed and interpreted this examination/study. 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 Enteric tube courses below the diaphragm and out of the [id number]. There is severe left rotation of the patient in this study. There is no focal consolidation, pleural effusion, or pneumothorax. The left upper lobe pulmonary nodule noted on chest CT from same day is not visualized on this plain film. The cardiomediastinal silhouette isnormal. The visible bony thorax is intact. Report dictated by Royer Stovall MD (residential sales). Alexx Ornelas have personally reviewed and interpreted this examination/study. > Interpreting Provider: Alexx Lopez on 10/26/2022 2:01 PM Shahbaz Bowen MD DIAGNOSTIC IMAGING O RDERABLES * CULTURE BLOOD (10/25/2022 9:00 AM CDT) Culture No growth day 5 ROSELIA 10/30/2022 1:30 PM CDT [facility] Blood PERIPHERAL BLOOD / Unknown Venipuncture / Unknown 10/25/2022 9:00 AM CDT 10/25/2022 9:21 AM CDT Emir Vail MD LAB - MICROBIOLOGY O RDERABLES [facility] [address] [place] [address], [facility] [phone] * (ABNORMAL) GLUCOSE - POINT OF CARE (10/25/2022 7:46 AM CDT) Pathologist [facility] Glucose WB/POC 123(H) 70 - 115 mg/dL 10/25/2022 7:47 AM CDT [facility] Specimen Type Cap Fingerstick 2022 7:47 AM CDT [facility] Blood BLOOD SPECIMEN / Unknown 10/25/2022 7:46 AM CDT 10/25/2022 7:47 AM CDT Emir Vail MD LAB - POINT OF CARE ORDERABLES Performing Organization Address City/[facility]/ZIP Co de Phone Number [address] [address], [place] [phone] * HEPATITIS C AB SCREEN RFLX NAAT QUANT (10/25/2022 1:39 AM CDT) [facility] Hepatitis C Antibody Non-react tiffany Non-reac tive 10/25/2022 2:56 AM CDT [facility] Comment:Hepatitis C Antibody screen indicates no [...] CDT Emir Vail MD LAB - CHEMISTRY ANKURE HIRAL [address] [address], [place] [phone] * HIV-1 HIV-2 ANTIBODY + HIV P24 AG PANEL (10/25/2022 1:39 AM CDT) Pathologist [facility] HIV Antigen/Antibod y 1 & 2 Non-reacti ve Non-react tiffany 10/25/2022 2:56 AM [facility] Comment:No Laboratory eviden ce of HIV infection. Blood BLOOD SPECIMEN / Unknown Venipuncture / Unknown 10/25/2022 1:39 AM CDT 10/25/2022 1:56 AM CDT Emir Vail MD LAB - CHEMISTRY BIBIANA BLACKMAN [facility] [address] [place] [address], [facility] [phone] * (ABNORMAL) BASIC METABOLIC PANEL (CALCIUM TOTAL) (10/25/2022 12:07 AM CDT) Pathologist [facility] BUN 16 7 - 26 mg/dL 10/25/2022 12:48 AM [facility] Creatinine 0.48(L) 0.56 - 0.96 mg/dL 10/25/2022 12:48 AM [facility] Sodium 140 136 - 145 mmol/L 10/25/2022 12:48 AM [facility] Potassium 4.0 3.5 - 4.5 mmol/L 10/25/2022 12:48 AM [facility] Chloride 106 98 - 107 mmol/L 10/25/2022 12:48 AM [facility] CO2 25 22 - 29 mmol/L 10/25/2022 12:48 AM [facility] Glucose 116(H) 70 - 115 mg/dL 10/25/2022 12:48 AM [facility] Calcium 9.0 8.4 - 10.2 mg/dL 10/25/2022 12:48 AM [facility] Anion Gap 13 8 - 18 10/25/2022 12:48 AM [facility] BUN/Creatinine Ratio 33(H) 7 - 23 10/25/2022 12:48 AM [facility] Osmolality Calculated 292 270 - 300 mOsm/kg 10/25/2022 12:48 AM [facility] eGFR by CKD-EPI >90 >=90 mL/min/1.7 3 m2 10/25/2022 12:48 AM [facility] Blood BLOOD SPECIMEN / Unknown Venipuncture / Unknown 10/25/2022 12:07 AM CDT 10/25/2022 12:12 AM CDT Emir Vail MD LAB - CHEMISTRY BIBIANA BLACKMAN [facility] Organization Address City/State/ZIP Co de Phone Number [facility] [address] [place] [address], [facility] [phone] * (ABNORMAL) CBC W AUTO DIFFERENTIAL (10/25/2022 12:07 AM T) WBC 16.6(H) 3.5 - 10.5 10? 3 /uL 10/25/2022 12:27 AM [facility] RBC 2.65(L) 3.80 - 5.20 10? 6 /uL 10/25/2022 12:27 AM [facility] Hemoglobin 8.2(L) 12.0 - 15.6 g/dL 10/25/2022 12:27 AM [facility] Hematocrit 25.1(L) 35.0 - 45.0 % 10/25/2022 12:27 AM [facility] MCV 94.7 80.7 - 98.3 fL 10/25/2022 12:27 AM [facility] MCH 30.9 26.7 - 34.0 pg 10/25/2022 12:27 AM [facility] MCHC 32.7 30.8 - 35.9 g/dL 10/25/2022 12:27 AM [facility] RDW-SD 45.8 36.0 - 50.0 fL 10/25/2022 12:27 AM [facility] RDW-CV 13.4 11.2 - 14.8 % 10/25/2022 12:27 AM [facility] Platelet Count 402(H) 150 - 400 10? 3 /uL 10/25/2022 12:27 AM [facility] MPV 10.2 9.4 - 12.9 fL 10/25/2022 12:27 AM [facility] nRBC Absolute 0.03(H) 0 10? 3 /uL 10/25/2022 12:27 AM [facility] nRBC Auto 0.2(H) 0 /100 WBC 10/25/2022 12:27 AM [facility] Neutrophils % 72.0(H) 35.0 - 70.0 % 10/25/2022 12:27 AM [facility] Lymphocytes % 15.7(L) 20.0 - 43.0 % 10/25/2022 12:27 AM [facility] Monocytes % 8.7 5.0 - 13.0 % 10/25/2022 12:27 AM [facility] Eosinophils % 2.1 0.0 - 6.0 % 10/25/2022 12:27 AM [facility] Basophil % 0.4 0.0 - 2.0 % 10/25/2022 12:27 AM [facility] Neutrophils Absolute 11.95(H) 1.60 - 7.00 10? 3 /uL 10/25/2022 12:27 AM [facility] Lymphocyte Absolute 2.60 1.10 - 3.90 10? 3 /uL 10/25/2022 12:27 AM [facility] Monocytes Absolute 1.45(H) 0.26 - 1.07 10? 3 /uL 10/25/2022 12:27 AM [facility] Eosinophils Absolute 0.34 0.00 - 0.47 10? 3 /uL 10/25/2022 12:27 AM [facility] Basophils Absolute 0.06 0.00 - 0.08 10? 3 /uL 10/25/2022 12:27 AM [facility] Immature Granulocytes % 1.1(H) 0.0 - 1.0 % 10/25/2022 12:27 AM [facility] Immature Granulocytes Absolute 0.18 10/25/2022 12:27 AM [facility] Blood BLOOD SPECIMEN / Unknown Venipuncture / Unknown 10/25/2022 12:07 AM CDT 10/25/2022 12:12 AM T Emir Vail MD LAB - HEMATOLOGY ORD ERABLES [address] [address], [place] [phone] * PHOSPHORUS BLOOD (10/25/2022 12:07 AM CDT) Phosphorus 3.7 2.9 - 5.1 mg/dL 10/25/2022 12:48 AM CDT [facility] Blood BLOOD SPECIMEN / Unknown Venipuncture / Unknown 10/25/2022 12:07 AM CDT 10/25/2022 12:12 AM CDT Emir Vail MD LAB - CHEMISTRY [place] [facility]MAN Performing Organization Address City/[facility]/ZIP Co de Phone Number [address] [address], [place] [phone] * MAGNESIUM BLOOD (10/25/2022 12:07 AM CDT) Magnesium 2.1 1.6 - 2.6 mg/dL 10/25/2022 12:48 AM CDT [facility] Blood BLOOD SPECIMEN / Unknown Venipuncture / Unknown 10/25/2022 12:07 AM CDT 10/25/2022 12:12 AM CDT Emir Vail MD LAB - CHEMISTRY [place] [address] [address], [place] [phone] * GLUCOSE - POINT OF CARE (10/24/2022 8:16 PM CDT) Glucose WB/POC 111 70 - 115 mg/dL 10/24/2022 8:25 PM CDT [facility] Specimen Type Cap Fingerstick 2022 8:25 PM CDT [facility] Blood BLOOD SPECIMEN / Unknown 10/24/2022 8:16 PM CDT 10/24/2022 8:25 PM CDT Emir Vail MD LAB - POINT OF CARE ORDERABLES Performing Organization Address City/[facility]/ZIP Co de Phone Number [facility] [address] [place] [address], [place] [phone] * GLUCOSE - POINT OF CARE (10/24/2022 5:10 PM CDT) Glucose WB/POC 112 70 - 115 mg/dL 10/24/2022 5:11 PM CDT [facility] Specimen Type Cap Fingerstick 2022 5:11 PM CDT [facility] Blood BLOOD SPECIMEN / Unknown 10/24/2022 5:10 PM CDT 10/24/2022 5:11 PM CDT Emir Vail MD LAB - POINT OF CARE ORDERABLES Performing Organization Address City/[facility]/ZIP Co de Phone Number [address] [address], [place] [phone] * XR ABDOMEN KUB PORTABLE (10/24/2022 2:04 PM CDT) Anatomical Region Laterality Modality Abdomen Radiographic Irene ging 10/24/2022 2:13 PM CDT Narrative 10/24/2022 2:17 PM CDT PROCEDURE: ??XR ABDOMEN KUB PORTABLE, DATE/TIME OF EXAM: ??10/24/2022 2:04 PM, LOCATION ??[facility] INDICATION: R47.1: Dysarthria ADDITIONAL CLINICAL INFORMATION: Ordering Provider Reason For Exam: ??ngt placement COMPARISON: Portable KUB dated 10/23/2022 FINDINGS/IMPRESSION: The enteric tube courses below the diaphragm with tip superimposing the gastric pyloric region. Drafted by Agnes Olmos DO (residential sales). I, Vanessa Kumar MD have personally reviewed and interpreted this examination/study. > Interpreting Provider: Vanessa Kumar MD on 10/24/2022 2:17 PM Procedure Note Vanessa Kumar MD - 10/24/2022 PROCEDURE: XR ABDOMEN KUB PORTABLE, DATE/TIME OF EXAM: 10/24/2022 2:04PM, LOCATION [facility] INDICATION: R47.1: Dysarthria ADDITIONAL CLINICAL INFORMATION: Ordering Provider Reason For Exam: ngt placement COMPARISON: Portable KUB dated 10/23/2022 FINDINGS/IMPRESSION: The enteric tube courses below the diaphragm with tip superimposing the gastric pyloric region. Drafted by Agnes Olmos DO (residential sales). I, Vanessa Kumar MD have personally reviewed and interpreted this examination/study. > Interpreting Provider: Vanessa Kumar MD on 32:17 PM Emir Vail MD DIAGNOSTIC IMAGING O RDERABLES * CULTURE BLOOD (10/24/2022 1:13 PM CDT) Culture No growth day 5 ROSELIA 10/29/2022 4:32 PM CDT [facility] Blood PERIPHERAL BLOOD / Unknown Venipuncture / Unknown 10/24/2022 1:13 PM CDT 10/24/2022 1:28 PM CDT Emir Vail MD LAB - MICROBIOLOGY O RDERABLES [facility] [address] [place] [address], [facility] [phone] * (ABNORMAL) GLUCOSE - POINT OF CARE (10/24/2022 12:37 PM CDT) Glucose WB/POC 130(H) 70 - 115 mg/dL 10/24/2022 5:34 PM CDT [facility] Specimen Type Cap Fingerstick 2022 5:34 PM CDT [facility] Blood BLOOD SPECIMEN / Unknown 10/24/2022 12:37 PM CDT 10/24/2022 5:34 PM CDT Emir Vail MD LAB - POINT OF CARE ORDERABLES [facility] [address] [place] [address] [phone] * MRI BRAIN WWO CONTRAST (10/24/2022 10:56 [...] right lateral ventricle, and approximately 3-4 mm pqfpf-bs-kaut midline shift, grossly similar to the prior. [...] verification. Report dictated by Tim Major MD (residential sales). I, Jasper Sifuentes MD have personally reviewed and interpreted this examination/study. > Interpreting Provider: Jasper Sifuentes MD on 10/24/2022 1:59 PM Narrative 10/24/2022 1:59 PM CDT PROCEDURE: ??MRI BRAIN WWO CONTRAST, DATE/TIME OF EXAM: ??10/24/2022 10:56 AM, LOCATION ??[facility] INDICATION: I63.411: Acute cerebrovascular accident [...] right lateral ventricle, and approximately 3-4 mm nozhh-df-ozhd midline shift at the level of the [...] CONTRAST, DATE/TIME OF EXAM: 10/24/2022 10:56AM, LOCATION [facility] INDICATION: I63.411: Acute cerebrovascular accident [...] the right lateral ventricle, and approximately 3-4mm wvjky-vd-aypa midline shift at the level of the [...] right lateral ventricle, and approximately 3-4 mm axlyj-zt-eqiu midline shift, grossly similar to the prior. [...] verification. Report dictated by Tim Major MD (residential sales). I, Jasper Sifuentes MD have personally reviewed and interpretedthis examination/study. > Interpreting Provider: Jasper Sifuentes MD on 10/24/2022 1:59 PM Emir Vail MD MR ORDERABLES * (ABNORMAL) GLUCOSE - POINT OF CARE (10/24/2022 9:15 AM CDT) [facility] Glucose WB/POC 130(H) 70 - 115 mg/dL 10/24/2022 9:16 AM CDT [facility] Specimen Type Cap Fingerstick 2022 9:16 AM CDT [facility] Blood BLOOD SPECIMEN / Unknown 10/24/2022 9:15 AM CDT 10/24/2022 9:16 AM CDT Emir Vail MD LAB - POINT OF CARE ORDERABLES Performing Organization Address [facility]/State/ZIP Co de Phone Number [facility] [address] [place] [address], [facility] [phone] * LAB MISC TEST (10/23/2022 8:29 PM CDT) Pathologist [facility] Test Name Phosphatidylserine Antibodies, IgG and IgM 10/27/2022 12:00 PM CDT [facility] Test Result See Scanned Report 10/27 12:00 PM CDT [facility] Comment Ref Lab [facility] 10/27/2022 12:00 PM CDT [facility] Blood BLOOD SPECIMEN / Unknown Venipuncture / Unknown 10/23/2022 8:29 PM CDT 10/23/2022 8:54 PM CDT Emir Vail MD LAB SEND OUT [address] [address] * (ABNORMAL) LUPUS ANTICOAGULANT PANEL (10/23/2022 8:29 PM CDT) APTT 21.4(L) 23.0 - 38.4 Seconds 10/24/2022 10:58 AM CDT [facility] PT 13.4 12.1 - 14.8 Seconds 10/24/2022 10:58 AM [facility] INR 1.0 See Comment 10/24/2022 10:58 AM T [facility] [place] Buffer 30.2 Seconds 023 10:58 AM [facility] [place] Phospholipid 26.9 Seconds 10/24/2022 10:58 AM [facility] [place] Delta 3.3 <8.0 Seconds 10/24/2022 10:58 AM [facility] Interpretation [place] Negative 10/24/2022 10:58 AM [facility] Comment:Up to 15-20% of douglas [...] Vail MD LAB - HEMATOLOGY ORD ERABLES [facility] [address] [place] [address], [facility] [phone] * CARDIOLIPIN ANTIBODY IGM (10/23/2022 8:29 PM CDT) Cardiolipin Antibody IgM <10 <=12 MPL 10/26/2022 1:32 AM CDT [employer] ([facility]) Comment: INTERPRETIVE INFORMATION: Anti-Cardiolipin IgM <=12 MPL: [...] other criteria phospholipid antibody tests. Performed By: [facility] [address] [place] [address] Film Spooler: Boo Bond MD, PhD CLIA Number: [id number] Blood BLOOD SPECIMEN / Unknown Venipuncture / Unknown 10/23/2022 8:29 PM CDT 10/23/2022 9:18 PM CDT Emir Vail MD LAB - SEROLOGY ORDER NISSA [employer] [facility]) [address] * CARDIOLIPIN ANTIBODY IGG (10/23/2022 8:29 PM CDT) Cardiolipin Antibody IgG <10 <=14 GPL 10/26/2022 1:32 AM CDT [employer] ([facility]) Comment: INTERPRETIVE INFORMATION: Anti-Cardiolipin IgG Ab <=14 [...] other criteria phospholipid antibody tests. Performed By: [facility] [address] [place] [address] Film Spooler: Boo Bond MD, PhD CLIA Number: [id number] Blood BLOOD SPECIMEN / Unknown Venipuncture / Unknown 10/23/2022 8:29 PM CDT 10/23/2022 9:19 PM CDT Eimr Vail MD LAB - SEROLOGY ORDER NISSA MED[employer] or Bro [facility]) [address] [place] [address], [facility] * CARDIOLIPIN ANTIBODY IGA (10/23/2022 8:29 PM CDT) Cardiolipin Antibody IgA <10 <=11 APL 10/26/2022 9:[address] [facility] [employer] ([facility]) Comment: INTERPRETIVE INFORMATION: Cardiolipin Antibodies, IgA <=11 APL: Negative 12-19 APL: Indeterminate 20-80 APL: Low to Moderately ??Positive 81 APL or above: High Positive Performed By: [facility] [address] [place] [address] Film Spooler: Boo Bond MD, PhD CLIA Number: [id number] Blood BLOOD SPECIMEN / Unknown Venipuncture / Unknown 10/23/2022 8:29 PM CDT 10/23/2022 9:19 PM CDT Emir Vail MD LAB - SEROLOGY ORDER NISSA Performing Organization Address [facility]/State/ZIP Co de Phone Number [employer] [facility]) [address] [place] [address], [facility] * BETA-2 GLYCOPROTEIN 1 ANTIBODY IGG/IGM PANEL (10/23/2022 8:29 PM CDT) Beta-2 Glycoprotein Antibody IgG <10 <=20 SGU 10/26/2022 1:43 AM CDT [employer] ([facility]) Beta-2 Glycoprotein Antibody IgM <10 <=20 SMU 10/26/2022 1:43 AM CDT [employer] [facility]) Comment: INTERPRETIVE INFORMATION: [id number] I, IgG and IgM Antibody The persistent [...] other criteria phospholipid antibody tests. Performed By: [facility] [address] [place] [address] Film Spooler: Boo Bond MD, PhD CLIA Number: [id number] Blood BLOOD SPECIMEN / Unknown Venipuncture / Unknown 10/23/2022 8:29 PM CDT 10/23/2022 9:19 PM CDT Emir Vail MD LAB - CHEMISTRY ORDE HIRAL [facility] [employer] ([facility]) [address] * BETA-2 GLYCOPROTEIN 1 ANTIBODY IGA (10/23/2022 8:29 PM CDT) [facility] Beta-2 Glycoprotein Antibody IgA <10 <=20 TRUDI 10/26/2022 1:43 AM CDT [facility] ([facility]) Comment: Performed By: [facility] [address] [place] [address] Film Spooler: Boo Bond MD, PhD CLIA Number: [id number] Blood BLOOD SPECIMEN / Unknown Venipuncture / Unknown 10/23/2022 8:29 PM CDT 10/23/2022 9:18 PM CDT Emir Vail MD LAB - SEROLOGY ORDER NISSA [facility]) [address] * (ABNORMAL) BASIC METABOLIC PANEL (CALCIUM TOTAL) (10/23/2022 8:29 PM CDT) [facility] BUN 14 7 - 26 mg/dL 10/23/2022 9:14 PM CDT [facility] Creatinine 0.56 0.56 - 0.96 mg/dL 10/23/2022 9:14 PM T [facility] Sodium 140 136 - 145 mmol/L 10/23/2022 9:14 PM T [facility] Potassium 4.1 3.5 - 4.5 mmol/L 10/23/2022 9:14 PM T [facility] Chloride 110(H) 98 - 107 mmol/L 10/23/2022 9:14 PM CDT [facility] CO2 23 22 - 29 mmol/L 10/23/2022 9:14 PM T [facility] Glucose 119(H) 70 - 115 mg/dL 10/23/2022 9:14 PM T [facility] Calcium 8.5 8.4 - 10.2 mg/dL 10/23/2022 9:14 PM T [facility] Anion Gap 11 8 - 18 10/23/2022 9:14 PM [facility] BUN/Creatinine Ratio 25(H) 7 - 23 10/23/2022 9:14 PM [facility] Osmolality Calculated 292 270 - 300 mOsm/kg 10/23/2022 9:14 PM [facility] eGFR by CKD-EPI >90 >=90 mL/min/1.7 3 m2 10/23/2022 9:14 PM [facility] Blood BLOOD SPECIMEN / Unknown Venipuncture / Unknown 10/23/2022 8:29 PM CDT 10/23/2022 8:48 PM CDT Emir Vail MD LAB - CHEMISTRY ORDE HIRAL [facility] Organization Address City/State/ZIP Co de Phone Number [facility] [address] [place] [address], [facility] [phone] * (ABNORMAL) CBC W AUTO DIFFERENTIAL (10/23/2022 8:29 PM CDT) WBC 17.4(H) 3.5 - 10.5 10? 3 /uL 10/23/2022 9:10 PM [facility] RBC 2.58(L) 3.80 - 5.20 10? 6 /uL 10/23/2022 9:10 PM [facility] Hemoglobin 8.0(L) 12.0 - 15.6 g/dL 10/23/2022 9:10 PM [facility] Hematocrit 24.4(L) 35.0 - 45.0 % 10/23/2022 9:10 PM [facility] MCV 94.6 80.7 - 98.3 fL 10/23/2022 9:10 PM [facility] MCH 31.0 26.7 - 34.0 pg 10/23/2022 9:10 PM [facility] MCHC 32.8 30.8 - 35.9 g/dL 10/23/2022 9:10 PM [facility] RDW-SD 46.7 36.0 - 50.0 fL 10/23/2022 9:10 PM [facility] RDW-CV 13.6 11.2 - 14.8 % 10/23/2022 9:10 PM [facility] Platelet Count 310 150 - 400 10? 3 /uL 10/23/2022 9:10 PM [facility] MPV 10.4 9.4 - 12.9 fL 10/23/2022 9:10 PM [facility] nRBC Absolute 0.03(H) 0 10? 3 /uL 10/23/2022 9:10 PM [facility] nRBC Auto 0.2(H) 0 /100 WBC 10/23/2022 9:10 PM [facility] Neutrophils % 69.8 35.0 - 70.0 % 10/23/2022 9:10 PM [facility] Lymphocytes % 19.2(L) 20.0 - 43.0 % 10/23/2022 9:10 PM [facility] Monocytes % 8.8 5.0 - 13.0 % 10/23/2022 9:10 PM [facility] Eosinophils % 1.1 0.0 - 6.0 % 10/23/2022 9:10 PM [facility] Basophil % 0.2 0.0 - 2.0 % 10/23/2022 9:10 PM [facility] Neutrophils Absolute 12.14(H) 1.60 - 7.00 10? 3 /uL 10/23/2022 9:10 PM [facility] Lymphocyte Absolute 3.33 1.10 - 3.90 10? 3 /uL 10/23/2022 9:10 PM [facility] Monocytes Absolute 1.52(H) 0.26 - 1.07 10? 3 /uL 10/23/2022 9:10 PM [facility] Eosinophils Absolute 0.19 0.00 - 0.47 10? 3 /uL 10/23/2022 9:10 PM [facility] Basophils Absolute 0.04 0.00 - 0.08 10? 3 /uL 10/23/2022 9:10 PM [facility] Immature Granulocytes % 0.9 0.0 - 1.0 % 10/23/2022 9:10 PM [facility] Immature Granulocytes Absolute 0.15 10/23/2022 9:10 PM CDT [facility] Blood BLOOD SPECIMEN / Unknown Venipuncture / Unknown 10/23/2022 8:29 PM CDT 10/23/2022 8:58 PM CDT Emir Vail MD LAB - HEMATOLOGY ORD DIMAS [address] [address], [place] [phone] * PHOSPHORUS BLOOD (10/23/2022 8:29 PM CDT) Phosphorus 3.1 2.9 - 5.1 mg/dL 10/23/2022 9:14 PM CDT [facility] Blood BLOOD SPECIMEN / Unknown Venipuncture / Unknown 10/23/2022 8:29 PM CDT 10/23/2022 8:48 PM CDT Emir Vail MD LAB - CHEMISTRY [place] BLACK[place] [address] [address], [place] [phone] * MAGNESIUM BLOOD (10/23/2022 8:29 PM CDT) Magnesium 2.1 1.6 - 2.6 mg/dL 10/23/2022 9:14 PM CDT [facility] Blood BLOOD SPECIMEN / Unknown Venipuncture / Unknown 10/23/2022 8:29 PM CDT 10/23/2022 8:48 PM CDT Emir Vail MD LAB - CHEMISTRY [place] BLACK[place] [address] [address], [place] [phone] * GLUCOSE - POINT OF CARE (10/23/2022 5:57 PM CDT) Glucose WB/POC 105 70 - 115 mg/dL 10/23/2022 5:58 PM CDT [facility] Specimen Type Cap Fingerstick 2022 5:58 PM CDT [facility] Blood BLOOD SPECIMEN / Unknown 10/23/2022 5:57 PM CDT 10/23/2022 5:58 PM CDT Emir Vail MD LAB - POINT OF CARE ORDERABLES Performing Organization Address City/[facility]/ZIP Co de Phone Number [address] [address], [place] [phone] * (ABNORMAL) C-REACTIVE PROTEIN (10/23/2022 3:47 PM CDT) C-Reactive Protein 12.1(H) <=0.5 mg/dL 10/23/2022 4:19 PM CDT [facility] Blood BLOOD SPECIMEN / Unknown Line Draw / Unknown 10/23/2022 3:47 PM CDT 10/23/2022 3:55 PM CDT Emir Vail MD LAB - CHEMISTRY ORDE RABKAREN Performing Organization Address City/[facility]/ZIP Co de Phone Number [address] [address], [place] [phone] * (ABNORMAL) ERYTHROCYTE SEDIMENTATION RATE (10/23/2022 3:47 PM CDT) Erythrocyte Sedimentation Rate Westergren 55(H) 0 - 20 MM/HR 10/23/2022 4:25 PM CDT [facility] Blood BLOOD SPECIMEN / Unknown Line Draw / Unknown 10/23/2022 3:47 PM CDT 10/23/2022 3:59 PM CDT Emir Vail MD LAB - HEMATOLOGY ORD ERABLES Performing Organization Address City/[facility]/ZIP Co de Phone Number [address] [address], [place] [phone] * CT CARDIAC ANGIO STRUCT MORPH (10/23/2022 [...] DATE/TIME OF EXAM: ??10/23/2022 3:08 PM, LOCATION ??[facility] INDICATION: I63.411: Acute cerebrovascular accident [...] DATE/TIME OF EXAM: 10/23/2022 3:08 PM, LOCATION [facility] INDICATION: I63.411: Acute cerebrovascular accident [...] DATE/TIME OF EXAM: ??10/23/2022 1:53 PM, LOCATION ??[facility] INDICATION: R47.1: Dysarthria ADDITIONAL CLINICAL INFORMATION: Ordering Provider Reason For Exam: ??NGT placement COMPARISON: Portable KUB dated 10/20/2022 FINDINGS/IMPRESSION: The enteric tube courses below the diaphragm with tip superimposing the stomach. Drafted by Agnes Olmos DO (residential sales). Vanessa Ornelas MD have personally reviewed and interpreted this examination/study. > Interpreting Provider: Vanessa Kumar MD on 10/24/2022 8:31 AM Procedure Note Vanessa Kumar MD - 10/24/2022 PROCEDURE: XR ABDOMEN KUB PORTABLE, DATE/TIME OF EXAM: 10/23/2022 1:53PM, LOCATION [facility] INDICATION: R47.1: Dysarthria ADDITIONAL CLINICAL INFORMATION: Ordering Provider Reason For Exam: NGT placement COMPARISON: Portable KUB dated 10/20/2022 FINDINGS/IMPRESSION: The enteric tube courses below the diaphragm with tip superimposing the stomach. Drafted by Agnes Olmos DO (residential sales). Vanessa Ornelas MD have personally reviewed and interpreted this examination/study. > Interpreting Provider: Vanessa Kumar MD on 38:31 AM Emir Vail MD DIAGNOSTIC IMAGING O DIONI * MRSA DNA PCR (10/23/2022 12:34 PM CDT) MRSA DNA by PCR Not detected Not detected 10/23/2022 8:44 PM CDT [facility] Microbiology SPECIMEN FROM NASAL FOSSAE / Unknown Collection / Unknown 10/23/2022 12:34 PM CDT 10/23/2022 12:50 PM CDT Narrative [facility] - 10/23/2022 8:44 PM CDT Methicillin-resistant Staphylococcus aureus (MRSA) DNA is not detected (presumed not colonized with MRSA). Emir Vail MD LAB - MICROBIOLOGY O DIONI Performing Organization Address City/[facility]/ZIP Co de Phone Number [facility] [address] [place] [address], [facility] [phone] * CULTURE BLOOD (10/23/2022 12:16 PM CDT) Culture No growth day 5 ROSELIA 10/28/2022 5:02 PM CDT [facility] Blood PERIPHERAL BLOOD / Unknown Venipuncture / Unknown 10/23/2022 12:16 PM CDT 10/23/2022 12:28 PM CDT Emir Vail MD LAB - MICROBIOLOGY O DIONI Performing Organization Address City/[facility] Co de Phone Number [facility] [address] [place] [address], [facility] [phone] * CULTURE BLOOD (10/23/2022 12:05 PM CDT) Culture No growth day 5 ROSELIA 10/28/2022 5:02 PM CDT [facility] Blood PERIPHERAL BLOOD / Unknown Venipuncture / Unknown 10/23/2022 12:05 PM CDT 10/23/2022 12:28 PM CDT Emir Vail MD LAB - MICROBIOLOGY O DIONI Performing Organization Address City/[facility]/ZIP Co de Phone Number [facility] [address] [place] [address], [facility] [phone] * GLUCOSE - POINT OF CARE (10/23/2022 11:24 AM CDT) Glucose WB/POC 113 70 - 115 mg/dL 10/23/2022 11:25 AM CDT [facility] Specimen Type Cap Fingerstick 2022 11:25 AM CDT [facility] Blood BLOOD SPECIMEN / Unknown 10/23/2022 11:24 AM CDT 10/23/2022 11:25 AM CDT Emir Vail MD LAB - POINT OF CARE ORDERABLES [facility] [address] [place] [address], [place] [phone] * ECHO SARAH COMPLETE (10/23/2022 9:07 AM [...] contrast. The probe was inserted by the dip dyer. There was moderate probe insertion difficulty. Moderate sedation was given. Sedation was managed by the dip dyer. Lidocaine administered during the study. 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 Endotracheal tube terminates in the midthoracic trachea. There is no focal consolidation. No pleural effusion or pneumothorax. The cardiomediastinal silhouette is normal. No acute osseous abnormality. Report dictated by Agnes Olmos DO (residential sales). IVanessa MD have personally reviewed and interpreted this examination/study. 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 Endotracheal tube terminates in the midthoracic trachea. There is no focal consolidation. No pleural effusion or pneumothorax.The cardiomediastinal silhouette is normal. No acute osseous abnormality. Report dictated by Agnes Olmos DO (residential sales). Vanessa Ornelas MD have personally reviewed and [...] report is dictated by Miranda Bowen MD (residential sales) Jasper Ornelas MD have personally reviewed and interpreted this examination/study. > Interpreting Provider: Jasper Sifuentes MD on 10/23/2022 9:16 AM Narrative 10/23/2022 9:16 AM CDT PROCEDURE: ??CT HEAD WO CONTRAST, DATE/TIME OF EXAM: ??10/23/2022 5:53 AM, LOCATION ??[facility] INDICATION: I63.511: Right middle cerebral [...] DATE/TIME OF EXAM: 10/23/2022 5:53 AM, LOCATION [facility] INDICATION: I63.511: Right middle cerebral [...] report is dictated by Miranda Bowen MD (residential sales) I, Jasper Sifuentes MD have personally reviewed and interpretedthis examination/study. > Interpreting Provider: Jasper Sifuentes MD on 10/23/2022 9:16 AM Emir Vail MD CT ORDERABLES * (ABNORMAL) BASIC METABOLIC PANEL (CALCIUM TOTAL) (10/23/2022 1:29 AM CDT) BUN 13 7 - 26 mg/dL 10/23/2022 2:09 AM CDT [facility] Creatinine 0.51(L) 0.56 - 0.96 mg/dL 10/23/2022 2:09 AM [facility] Sodium 140 136 - 145 mmol/L 10/23/2022 2:09 AM [facility] Potassium 3.4(L) 3.5 - 4.5 mmol/L 10/23/2022 2:09 AM [facility] Chloride 108(H) 98 - 107 mmol/L 10/23/2022 2:09 AM [facility] CO2 25 22 - 29 mmol/L 10/23/2022 2:09 AM [facility] Glucose 132(H) 70 - 115 mg/dL 10/23/2022 2:09 AM [facility] Calcium 8.3(L) 8.4 - 10.2 mg/dL 10/23/2022 2:09 AM [facility] Anion Gap 10 8 - 18 10/23/2022 2:09 AM [facility] BUN/Creatinine Ratio 25(H) 7 - 23 10/23/2022 2:09 AM [facility] Osmolality Calculated 292 270 - 300 mOsm/kg 10/23/2022 2:09 AM [facility] eGFR by CKD-EPI >90 >=90 mL/min/1.7 3 m2 10/23/2022 2:09 AM [facility] Blood BLOOD SPECIMEN / Unknown Venipuncture / Unknown 10/23/2022 1:29 AM CDT 10/23/2022 1:40 AM T Emir Vail MD LAB - CHEMISTRY BIBIANA BLACKMAN [facility] Organization Address City/State/ZIP Co de Phone Number [facility] [address] [place] [address], [facility] [phone] * (ABNORMAL) CBC W AUTO DIFFERENTIAL (10/23/2022 1:29 AM CDT) WBC 16.7(H) 3.5 - 10.5 10? 3 /uL 10/23/2022 1:43 AM [facility] RBC 2.52(L) 3.80 - 5.20 10? 6 /uL 10/23/2022 1:43 AM [facility] Hemoglobin 7.8(L) 12.0 - 15.6 g/dL 10/23/2022 1:43 AM [facility] Hematocrit 23.8(L) 35.0 - 45.0 % 10/23/2022 1:43 AM [facility] MCV 94.4 80.7 - 98.3 fL 10/23/2022 1:43 AM [facility] MCH 31.0 26.7 - 34.0 pg 10/23/2022 1:43 AM [facility] MCHC 32.8 30.8 - 35.9 g/dL 10/23/2022 1:43 AM [facility] RDW-SD 46.7 36.0 - 50.0 fL 10/23/2022 1:43 AM [facility] RDW-CV 13.5 11.2 - 14.8 % 10/23/2022 1:43 AM [facility] Platelet Count 265 150 - 400 10? 3 /uL 10/23/2022 1:43 AM [facility] MPV 10.3 9.4 - 12.9 fL 10/23/2022 1:43 AM [facility] nRBC Absolute 0.00 0 10? 3 /uL 10/23/2022 1:43 AM [facility] nRBC Auto 0.0 0 /100 WBC 10/23/2022 1:43 AM [facility] Neutrophils % 70.7(H) 35.0 - 70.0 % 10/23/2022 1:43 AM [facility] Lymphocytes % 18.4(L) 20.0 - 43.0 % 10/23/2022 1:43 AM [facility] Monocytes % 9.2 5.0 - 13.0 % 10/23/2022 1:43 AM [facility] Eosinophils % 0.6 0.0 - 6.0 % 10/23/2022 1:43 AM [facility] Basophil % 0.3 0.0 - 2.0 % 10/23/2022 1:43 AM [facility] Neutrophils Absolute 11.79(H) 1.60 - 7.00 10? 3 /uL 10/23/2022 1:43 AM CDT [facility] Lymphocyte Absolute 3.07 1.10 - 3.90 10? 3 /uL 10/23/2022 1:43 AM CDT [facility] Monocytes Absolute 1.54(H) 0.26 - 1.07 10? 3 /uL 10/23/2022 1:43 AM CDT [facility] Eosinophils Absolute 0.10 0.00 - 0.47 10? 3 /uL 10/23/2022 1:43 AM CDT [facility] Basophils Absolute 0.05 0.00 - 0.08 10? 3 /uL 10/23/2022 1:43 AM CDT [facility] Immature Granulocytes % 0.8 0.0 - 1.0 % 10/23/2022 1:43 AM CDT [facility] Immature Granulocytes Absolute 0.13 10/23/2022 1:43 AM CDT [facility] Blood BLOOD SPECIMEN / Unknown Venipuncture / Unknown 10/23/2022 1:29 AM CDT 10/23/2022 1:40 AM CDT Emir Vail MD LAB - HEMATOLOGY ORD ERABLES [address] [address], [facility] [phone] * PHOSPHORUS BLOOD (10/23/2022 1:29 AM CDT) Phosphorus 3.4 2.9 - 5.1 mg/dL 10/23/2022 2:09 AM CDT [facility] Blood BLOOD SPECIMEN / Unknown Venipuncture / Unknown 10/23/2022 1:29 AM CDT 10/23/2022 1:40 AM CDT Emir Vail MD LAB - CHEMISTRY ORDaDnyelle BLACKMAN [address] [address], [facility] [phone] * MAGNESIUM BLOOD (10/23/2022 1:29 AM CDT) Magnesium 2.0 1.6 - 2.6 mg/dL 10/23/2022 2:09 AM CDT [facility] Blood BLOOD SPECIMEN / Unknown Venipuncture / Unknown 10/23/2022 1:29 AM CDT 10/23/2022 1:40 AM CDT Emir Vail MD LAB - CHEMISTRY BIBIANA BLACKMAN [address] [address], [place] [phone] * (ABNORMAL) GLUCOSE - POINT OF CARE (10/22/2022 11:00 PM CDT) Pathologist [facility] Glucose WB/POC 124(H) 70 - 115 mg/dL 10/22/2022 11:05 PM CDT [facility] Specimen Type Cap Fingerstick 2022 11:05 PM CDT [facility] Blood BLOOD SPECIMEN / Unknown 10/22/2022 11:00 PM CDT 10/22/2022 11:05 PM CDT Emir Vail MD LAB - POINT OF CARE ORDERABLES Performing Organization Address City/[facility]/ZIP Co de Phone Number [address] [address], [place] [phone] * (ABNORMAL) GLUCOSE - POINT OF CARE (10/22/2022 5:41 PM CDT) Pathologist [facility] Glucose WB/POC 127(H) 70 - 115 mg/dL 10/22/2022 5:42 PM CDT [facility] Specimen Type Cap Fingerstick 2022 5:42 PM CDT [facility] Blood BLOOD SPECIMEN / Unknown 10/22/2022 5:41 PM CDT 10/22/2022 5:42 PM CDT Emir Vail MD LAB - POINT OF CARE ORDERABLES [address] [address], [place] [phone] * GLUCOSE - POINT OF CARE (10/22/2022 2:57 PM CDT) Glucose WB/POC 98 70 - 115 mg/dL 10/22/2022 2:59 PM CDT [facility] Specimen Type Cap Fingerstick 2022 2:59 PM CDT [facility] Blood BLOOD SPECIMEN / Unknown 10/22/2022 2:57 PM CDT 10/22/2022 2:59 PM CDT Emir Vail MD LAB - POINT OF CARE ORDERABLES [facility] [address] [place] [address], [facility] [phone] * CT HEAD WO CONTRAST (10/22/2022 2:32 [...] hemorrhage. Report dictated by Lorenzo Horta MD (residential sales). I, Lonnie Rae MD have personally reviewed [...] hemorrhage. Report dictated by Lorenzo Horta MD (residential sales). I, Lonnie Rae MD have personally reviewed and interpreted this examination/study. > Interpreting Provider: Lonnie Rae MD on 10/22/2022 3:10 PM Emir Vail MD CT ORDERABLES * GLUCOSE - POINT OF CARE (10/22/2022 8:58 AM CDT) Glucose WB/POC 109 70 - 115 mg/dL 10/22/2022 8:59 AM CDT [facility] Specimen Type Cap Fingerstick 2022 8:59 AM CDT [facility] Blood BLOOD SPECIMEN / Unknown 10/22/2022 8:58 AM CDT 10/22/2022 8:59 AM CDT Emir Vail MD LAB - POINT OF CARE ORDERABLES [address] [address], [facility] [phone] * CT HEAD WO CONTRAST (10/22/2022 5:35 [...] DATE/TIME OF EXAM: ??10/22/2022 5:35 AM, LOCATION ??[facility] INDICATION: I63.511: Right middle cerebral [...] DATE/TIME OF EXAM: 10/22/2022 5:35 AM, LOCATION [facility] INDICATION: I63.511: Right middle cerebral [...] AUTO CITRATED BLOOD (10/22/2022 1:53 AM CDT) [facility] Platelet Count Citrated Blood 199 150 - 400 10? 3 /uL 10/22/2022 2:21 AM CDT [facility] Blood BLOOD SPECIMEN / Unknown Venipuncture / Unknown 10/22/2022 1:53 AM CDT 10/22/2022 2:05 AM CDT Emir Vail MD LAB - HEMATOLOGY ORD ERABLES [address] [address], [facility] [phone] * (ABNORMAL) GLUCOSE - POINT OF CARE (10/21/2022 11:18 PM CDT) [facility] Glucose WB/POC 171(H) 70 - 115 mg/dL 10/21/2022 11:23 PM CDT [facility] Specimen Type Venous 10/21/2022 11:23 PM CDT [facility] Blood BLOOD SPECIMEN / Unknown 10/21/2022 11:18 PM CDT 10/21/2022 11:23 PM CDT Emir Vail MD LAB - POINT OF CARE ORDERABLES [address] [address], [place] [phone] * (ABNORMAL) BASIC METABOLIC PANEL (CALCIUM TOTAL) (10/21/2022 11:16 PM CDT) [facility] BUN 16 7 - 26 mg/dL 10/21/2022 11:51 PM CDT [facility] Creatinine 0.65 0.56 - 0.96 mg/dL 10/21/2022 11:51 PM CDT [facility] Sodium 142 136 - 145 mmol/L 10/21/2022 11:51 PM [facility] Potassium 3.7 3.5 - 4.5 mmol/L 10/21/2022 11:51 PM [facility] Chloride 111(H) 98 - 107 mmol/L 10/21/2022 11:51 PM [facility] CO2 20(L) 22 - 29 mmol/L 10/21/2022 11:51 PM [facility] Glucose 120(H) 70 - 115 mg/dL 10/21/2022 11:51 PM [facility] Calcium 8.0(L) 8.4 - 10.2 mg/dL 10/21/2022 11:51 PM [facility] Anion Gap 15 8 - 18 10/21/2022 11:51 PM [facility] BUN/Creatinine Ratio 25(H) 7 - 23 10/21/2022 11:51 PM [facility] Osmolality Calculated 296 270 - 300 mOsm/kg 10/21/2022 11:51 PM [facility] eGFR by CKD-EPI >90 >=90 mL/min/1.7 3 m2 10/21/2022 11:51 PM [facility] Blood BLOOD SPECIMEN / Unknown Venipuncture / Unknown 10/21/2022 11:16 PM CDT 10/21/2022 11:27 PM CDT Emir Vail MD LAB - CHEMISTRY BIBIANA BLACKMAN [facility] Organization Address City/State/[facility] Co de Phone Number [facility] [address] [place] [address], [facility] [phone] * (ABNORMAL) CBC W AUTO DIFFERENTIAL (10/21/2022 11:16 PM CDT) WBC 18.4(H) 3.5 - 10.5 10? 3 /uL 10/22/2022 12:26 AM [facility] RBC 2.62(L) 3.80 - 5.20 10? 6 /uL 10/22/2022 12:26 AM [facility] Hemoglobin 8.1(L) 12.0 - 15.6 g/dL 10/22/2022 12:26 AM [facility] Hematocrit 25.1(L) 35.0 - 45.0 % 10/22/2022 12:26 AM [facility] MCV 95.8 80.7 - 98.3 fL 10/22/2022 12:26 AM [facility] MCH 30.9 26.7 - 34.0 pg 10/22/2022 12:26 AM [facility] MCHC 32.3 30.8 - 35.9 g/dL 10/22/2022 12:26 AM [facility] RDW-SD 48.6 36.0 - 50.0 fL 10/22/2022 12:26 AM [facility] RDW-CV 14.0 11.2 - 14.8 % 10/22/2022 12:26 AM [facility] Platelet Count 10/22/2022 12:26 AM [facility] Comment: Platelets are clumped, appear as decreased on the slide. ??A blue top citrated tube is required for a platelet count. ?? Notified Shauna Martines RN ??at 1225 on 10/22/2022. MPV 10/22/2022 12:26 AM [facility] Comment:Unable to Report Immature Platelet Fraction 10/22/2022 12:26 AM [facility] Comment:Unable to Report nRBC Absolute 0.00 0 10? 3 /uL 10/22/2022 12:26 AM [facility] nRBC Auto 0.0 0 /100 WBC 10/22/2022 12:26 AM [facility] Neutrophils % 69.8 35.0 - 70.0 % 10/22/2022 12:26 AM [facility] Lymphocytes % 18.4(L) 20.0 - 43.0 % 10/22/2022 12:26 AM [facility] Monocytes % 10.9 5.0 - 13.0 % 10/22/2022 12:26 AM [facility] Eosinophils % 0.1 0.0 - 6.0 % 10/22/2022 12:26 AM [facility] Basophil % 0.1 0.0 - 2.0 % 10/22/2022 12:26 AM [facility] Neutrophils Absolute 12.87(H) 1.60 - 7.00 10? 3 /uL 10/22/2022 12:26 AM [facility] Lymphocyte Absolute 3.38 1.10 - 3.90 10? 3 /uL 10/22/2022 12:26 AM [facility] Monocytes Absolute 2.00(H) 0.26 - 1.07 10? 3 /uL 10/22/2022 12:26 AM [facility] Eosinophils Absolute 0.01 0.00 - 0.47 10? 3 /uL 10/22/2022 12:26 AM [facility] Basophils Absolute 0.02 0.00 - 0.08 10? 3 /uL 10/22/2022 12:26 AM [facility] Immature Granulocytes % 0.7 0.0 - 1.0 % 10/22/2022 12:26 AM [facility] Immature Granulocytes Absolute 0.13 10/22/2022 12:26 AM [facility] Blood BLOOD SPECIMEN / Unknown Venipuncture / Unknown 10/21/2022 11:16 PM CDT 10/21/2022 11:27 PM CDT Emir Vail MD LAB - HEMATOLOGY ORD ERABLES [address] [address], [facility] [phone] * (ABNORMAL) PHOSPHORUS BLOOD (10/21/2022 11:16 PM CDT) Phosphorus 2.7(L) 2.9 - 5.1 mg/dL 10/21/2022 11:51 PM CDT [facility] Blood BLOOD SPECIMEN / Unknown Venipuncture / Unknown 10/21/2022 11:16 PM CDT 10/21/2022 11:27 PM CDT Emir Vail MD LAB - CHEMISTRY ORDDanyelle BLACKMAN [address] [address], [place] [phone] * MAGNESIUM BLOOD (10/21/2022 11:16 PM CDT) Magnesium 2.2 1.6 - 2.6 mg/dL 10/21/2022 11:51 PM CDT [facility] Blood BLOOD SPECIMEN / Unknown Venipuncture / Unknown 10/21/2022 11:16 PM CDT 10/21/2022 11:27 PM CDT Emir Vail MD LAB - CHEMISTRY ORDE HIRAL [facility] [address] [place] [address], [place] [phone] * (ABNORMAL) GLUCOSE - POINT OF CARE (10/21/2022 6:43 PM CDT) Glucose WB/POC 129(H) 70 - 115 mg/dL 10/21/2022 6:44 PM CDT [facility] Specimen Type Cap Fingerstick 2022 6:44 PM CDT [facility] Blood BLOOD SPECIMEN / Unknown 10/21/2022 6:43 PM CDT 10/21/2022 6:44 PM CDT Emir Vail MD LAB - POINT OF CARE ORDERABLES [facility] [address] [place] [address], [place] [phone] * (ABNORMAL) GLUCOSE - POINT OF CARE (10/21/2022 12:10 PM CDT) Glucose WB/POC 127(H) 70 - 115 mg/dL 10/21/2022 12:15 PM CDT [facility] Specimen Type Cap Fingerstick 2022 12:15 PM CDT [facility] Blood BLOOD SPECIMEN / Unknown 10/21/2022 12:10 PM CDT 10/21/2022 12:14 PM CDT Emir Vail MD LAB - POINT OF CARE ORDERABLES [place] [id number] [place] [address], [facility] [phone] * XR CHEST 1VW PORTABLE (10/21/2022 8:53 AM CDT) Anatomical Region Laterality Modality Chest Radiographic Irene ging 10/21/2022 2:30 PM CDT Narrative 10/21/2022 5:59 PM CDT PROCEDURE: ??XR CHEST 1VW PORTABLE, DATE/TIME OF EXAM: ??10/21/2022 8:53 AM, LOCATION ??[facility] INDICATION: R53.1: Weakness ADDITIONAL CLINICAL INFORMATION: Ordering [...] Report dictated by Christopher Tobin MD, MD (residential sales). HEATHER Ornelas MD have personally reviewed and interpreted this examination/study. > Interpreting Provider: HEATHER FREGOSO MD on 10/21/2022 5:59 PM Procedure Note Heather Fregoso MD - 10/21/2022 PROCEDURE: XR CHEST 1VW PORTABLE, DATE/TIME OF EXAM: 10/21/2022 8:53AM, LOCATION [facility] INDICATION: R53.1: Weakness ADDITIONAL CLINICAL INFORMATION: Ordering [...] Report dictated by Christopher Tobin MD, MD (residential sales). HEATHER Ornelas MD have personally reviewed and interpreted this examination/study. > Interpreting Provider: HEATHER FREGOSO MD on 10/21/2022 5:59 PM Emir Vail MD DIAGNOSTIC IMAGING O RDERABLES * (ABNORMAL) BLOOD GASES ART + COOX PANEL (10/21/2022 8:[address] [facility]) pH Arterial 7.40 7.35 - 7.45 pH 10/21/2022 8:09 AM [facility] pO2 Arterial 143(H) 80 - 100 mmHg 10/21/2022 8:09 AM [facility] pCO2 Arterial 31(L) 35 - 45 mmHg 8:09 AM [facility] HCO3 Arterial 19.2(L) 20.0 - 30.0 mmol/L 10/21/2022 8:09 AM [facility] BE Arterial -4.8(L) -2.0 - 2.0 mmol/L 10/21/2022 8:09 AM [facility] Oxyhemoglobin Arterial 97.2 % 10/21/2022 8:09 AM [facility] Dexoyhemoglobin (HHB) % <1.0 % 10/21/2022 8:09 AM [facility] Methemoglobin <0.8 0.0 - 2.0 % 10/21/2022 8:09 AM [facility] Carboxyhemoglobin 1.4 0.0 - 2.0 % 2022 8:09 AM [facility] O2 Content Arterial 13.6 Interpret within clinical context ml/dL 10/21/2022 8:09 AM [facility] Hemoglobin by COOX 9.7(L) 12.0 - 15.6 g/dL 10/21/2022 8:09 AM [facility] O2 Saturation Arterial 99 90 - 100 % 10/21/2022 8:09 AM [facility] FI O2 Arterial 30.0 % 10/21/2022 8:09 AM [facility] Blood, arterial ARTERIAL BLOOD SPECIMEN / Unknown Arterial Puncture / Unknown 10/21/2022 8:01 AM CDT 10/21/2022 8:05 AM CDT [facility] - 10/21/2022 8:09 AM CDT Carboxyhemoglobin Normal Concentration: Non-smokers: 0-2%; Smokers: 0-9%; Toxic: >20% Emir Vail MD LAB - BLOOD GASES OR DERABLES [facility] [address] [place] [address] [phone] * (ABNORMAL) CBC W AUTO DIFFERENTIAL (10/21/2022 7:53 AM CDT) WBC 18.6(H) 3.5 - 10.5 10? 3 /uL 10/21/2022 8:11 AM [facility] RBC 3.01(L) 3.80 - 5.20 10? 6 /uL 10/21/2022 8:11 AM [facility] Hemoglobin 9.4(L) 12.0 - 15.6 g/dL 10/21/2022 8:11 AM [facility] Hematocrit 27.9(L) 35.0 - 45.0 % 10/21/2022 8:11 AM [facility] MCV 92.7 80.7 - 98.3 fL 10/21/2022 8:11 AM [facility] MCH 31.2 26.7 - 34.0 pg 10/21/2022 8:11 AM [facility] MCHC 33.7 30.8 - 35.9 g/dL 10/21/2022 8:11 AM [facility] RDW-SD 47.8 36.0 - 50.0 fL 10/21/2022 8:11 AM [facility] RDW-CV 14.1 11.2 - 14.8 % 10/21/2022 8:11 AM [facility] Platelet Count 259 150 - 400 10? 3 /uL 10/21/2022 8:11 AM [facility] MPV 10.5 9.4 - 12.9 fL 10/21/2022 8:11 AM [facility] nRBC Absolute 0.00 0 10? 3 /uL 10/21/2022 8:11 AM [facility] nRBC Auto 0.0 0 /100 WBC 10/21/2022 8:11 AM [facility] Neutrophils % 86.9(H) 35.0 - 70.0 % 10/21/2022 8:11 AM [facility] Lymphocytes % 7.3(L) 20.0 - 43.0 % 10/21/2022 8:11 AM [facility] Monocytes % 5.1 5.0 - 13.0 % 10/21/2022 8:11 AM [facility] Eosinophils % 0.0 0.0 - 6.0 % 10/21/2022 8:11 AM [facility] Basophil % 0.1 0.0 - 2.0 % 10/21/2022 8:11 AM [facility] Neutrophils Absolute 16.12(H) 1.60 - 7.00 10? 3 /uL 10/21/2022 8:11 AM [facility] Lymphocyte Absolute 1.36 1.10 - 3.90 10? 3 /uL 10/21/2022 8:11 AM [facility] Monocytes Absolute 0.94 0.26 - 1.07 10? 3 /uL 10/21/2022 8:11 AM [facility] Eosinophils Absolute 0.00 0.00 - 0.47 10? 3 /uL 10/21/2022 8:11 AM [facility] Basophils Absolute 0.02 0.00 - 0.08 10? 3 /uL 10/21/2022 8:11 AM [facility] Immature Granulocytes % 0.6 0.0 - 1.0 % 10/21/2022 8:11 AM [facility] Immature Granulocytes Absolute 0.12 10/21/2022 8:11 AM [facility] Blood BLOOD SPECIMEN / Unknown Line Draw / Unknown 10/21/2022 7:53 AM CDT 10/21/2022 8:06 AM T Emir Vail MD LAB - HEMATOLOGY ORD ERABLES [facility] [address] [place] [address], [facility] [phone] * TROPONIN-I HIGH SENSITIVE REFLEX 1HOUR (10/21/2022 7:53 AM CDT) Troponin I High Sensitive <3 <=14 ng/L 10/21/2022 8:54 AM CDT [facility] Delta Troponin I HS 10/21/2022 8:54 AM CDT [facility] Comment:Delta value intentio princess not calculated. Baseline to 1 hour specimen collection interval exceeded. Blood BLOOD SPECIMEN / Unknown Line Draw / Unknown 10/21/2022 7:53 AM CDT 10/21/2022 8:06 AM CDT Jim Walter MD LAB - CHEMISTRY ORD DIMAS Performing Organization Address City/[facility]/ZIP Co de Phone Number [address] [address], [facility] [phone] * (ABNORMAL) PHOSPHORUS BLOOD (10/21/2022 4:59 AM CDT) Pathologist [facility] Phosphorus 2.2(L) 2.9 - 5.1 mg/dL 10/21/2022 5:46 AM CDT [facility] Blood BLOOD SPECIMEN / Unknown Venipuncture / Unknown 10/21/2022 4:59 AM CDT 10/21/2022 5:09 AM CDT Good Antunez MD LAB - CHEMISTRY ORDDanyelle BLACKMAN [address] [address], [facility] [phone] * MAGNESIUM BLOOD (10/21/2022 4:59 AM CDT) Magnesium 2.2 1.6 - 2.6 mg/dL 10/21/2022 5:47 AM CDT [facility] Comment:Hemolysis detected i n this specimen. [...] Organization Address City/State/ZIP Co de Phone Number [facility] [address] [place] [address], [facility] [phone] * (ABNORMAL) CBC W/O DIFFERENTIAL (10/21/2022 4:59 AM CDT) WBC 18.7(H) 3.5 - 10.5 10? 3 /uL 10/21/2022 5:25 AM CDT [facility] RBC 2.98(L) 3.80 - 5.20 10? 6 /uL 10/21/2022 5:25 AM [facility] Hemoglobin 9.4(L) 12.0 - 15.6 g/dL 10/21/2022 5:25 AM [facility] Hematocrit 27.8(L) 35.0 - 45.0 % 10/21/2022 5:25 AM [facility] MCV 93.3 80.7 - 98.3 fL 10/21/2022 5:25 AM [facility] MCH 31.5 26.7 - 34.0 pg 10/21/2022 5:25 AM [facility] MCHC 33.8 30.8 - 35.9 g/dL 10/21/2022 5:25 AM [facility] RDW-SD 48.8 36.0 - 50.0 fL 10/21/2022 5:25 AM [facility] RDW-CV 14.3 11.2 - 14.8 % 10/21/2022 5:25 AM [facility] Platelet Count 260 150 - 400 10? 3 /uL 10/21/2022 5:25 AM [facility] MPV 10.6 9.4 - 12.9 fL 10/21/2022 5:25 AM [facility] nRBC Absolute 0.00 0 10? 3 /uL 10/21/2022 5:25 AM [facility] nRBC Auto 0.0 0 /100 WBC 10/21/2022 5:25 AM [facility] Blood BLOOD SPECIMEN / Unknown Venipuncture / Unknown 10/21/2022 4:59 AM CDT 10/21/2022 5:10 AM CDT Good Antunez MD LAB - HEMATOLOGY ORD ERABLES [facility] [address] [place] [address], [facility] [phone] * (ABNORMAL) BASIC METABOLIC PANEL (CALCIUM TOTAL) (10/21/2022 4:59 AM CDT) BUN 12 7 - 26 mg/dL 10/21/2022 5:47 AM [facility] Creatinine 0.64 0.56 - 0.96 mg/dL 10/21/2022 5:47 AM [facility] Sodium 142 136 - 145 mmol/L 10/21/2022 5:47 AM [facility] Potassium 4.8(H) 3.5 - 4.5 mmol/L 10/21/2022 5:47 AM [facility] Comment:Hemolysis detected i n this specimen. Hemolysis may cause false elevations in potassium leading to pseudohyperkalemia or masked hypokalemia. Recommend repeat testing if clinically indicated. Chloride 115(H) 98 - 107 mmol/L 10/21/2022 5:47 AM [facility] CO2 16(L) 22 - 29 mmol/L 10/21/2022 5:47 AM [facility] Glucose 169(H) 70 - 115 mg/dL 10/21/2022 5:47 AM [facility] Calcium 8.2(L) 8.4 - 10.2 mg/dL 10/21/2022 5:47 AM [facility] Anion Gap 16 8 - 18 10/21/2022 5:47 AM [facility] BUN/Creatinine Ratio 19 7 - 23 10/10 5:47 AM [facility] Osmolality Calculated 298 270 - 300 mOsm/kg 10/21/2022 5:47 AM [facility] eGFR by CKD-EPI >90 >=90 mL/min/1. 73 m2 10/21/2022 5:47 AM CDT [facility] Blood BLOOD SPECIMEN / Unknown Venipuncture / Unknown 10/21/2022 4:59 AM CDT 10/21/2022 5:09 AM CDT Good Antunez MD LAB - CHEMISTRY [place] [facility] [address] [place] [address], [facility] [phone] * SARAH BLOOD SCREEN W/REFLEX TITER (10/21/2022 4:59 AM CDT) SARAH IgG None Detected None Detected 10/22/2022 10:36 PM CDT [facility] ([facility]) Comment: If suspicion of connective tissue disease is strong and SARAH EIA is negative, consider testing for SARAH by IFA ([id number]). INTERPRETIVE INFORMATION: Anti-Nuclear Antibodies (SARAH), IgG by EZIO Antinuclear Antibodies (SARAH), IgG by EZIO: SARAH specimens are screened using enzyme-linked immunosorbent assay (EZIO) methodology. All EZIO results reported as Detected are further tested by indirect fluorescent assay (IFA) using HEp-2 substrate with an IgG-specific conjugate. The SARAH EZIO screen is designed to detect antibodies against dsDNA, histones, SS-A (Ro), SS-B (La), Goodwin, Goodwin/RECREATION ATTENDANT SUPERVISOR, Scl-70, Sariah-1, centromeric proteins, other antigens extracted from the HEp-2 cell nucleus. SARAH EZIO assays have been reported to have lower sensitivities than SARAH IFA for systemic autoimmune rheumatic diseases (SARD). Negative results do not necessarily rule out SARD. Performed By: [facility] [address] [place] [id number] Film Spooler: Boo Bond MD, PhD CLIA Number: [id number] Blood BLOOD SPECIMEN / Unknown Venipuncture / Unknown 10/21/2022 4:59 AM CDT 10/21/2022 5:06 AM CDT Good Antunez MD LAB - CHEMISTRY [place] BLACK[place] [facility] Managed Methods [facility]) [address] [place] [address], [facility] * FA[facility] MUTATION PANEL (10/21/2022 4:59 AM CDT) [facility] Factor V Leiden Source Whole Blood 10/26/2022 4:46 PM CDT [employer] ([facility]) Factor V Leiden PCR/FRET Negative 10/26/2022 4:[address] [facility] Managed Methods ([facility]) Comment: Indication for testing: Assess genetic risk for thrombosis. NEGATIVE: The factor V Leiden variant, c.1601G>A; p.Vua142Fmi, was not detected. This does not exclude [...] function in the F5 gene variant c.1601G>A (p.Goq090Tof). Legacy nomenclature: [id number] (1691G>A) CLINICAL SENSITIVITY: 20-50 percent of individuals with an isolated VTE have the FVL variant. METHODOLOGY: Polymerase chain reaction and fluorescence monitoring. ANALYTICAL SENSITIVITY AND SPECIFICITY: 99 percent. LIMITATIONS: Diagnostic errors can occur due to rare sequence variations. F5 gene mutations, other than p.Gqs963Rdl, will not be detected. This test was developed and its performance characteristics determined by [facility]. It has not been cleared or approved by the [place] Food and Drug Administration. This test was performed in a CLIA certified laboratory and is intended for clinical purposes. Counseling and informed consent are recommended for genetic testing. Consent forms are available online. Performed By: [address] [address] Film Spooler: Boo Bond MD, PhD CLIA Number: [id number] Blood BLOOD SPECIMEN / Unknown Venipuncture / Unknown 10/21/2022 4:59 AM CDT 10/21/2022 5:10 AM CDT Good Antunez MD LAB - COAGULATION OR DERABLES Performing Organization Address City/[facility]/ZIP Co de Phone Number [facility] ([facility]) [address] [place] [id number] * COMPLEMENT C3 (10/21/2022 4:59 AM CDT) Pathologist [facility] Complement C3 155 82 - 193 mg/dL 10/21/2022 5:47 AM CDT [facility] Blood BLOOD SPECIMEN / Unknown Venipuncture / Unknown 10/21/2022 4:59 AM CDT 10/21/2022 5:09 AM CDT Good Antunez MD LAB - CHEMISTRY ORDDanyelle BLACKMAN [address] [address], [facility] [phone] * RHEUMATOID FACTOR BLOOD QUANTITATIVE (10/21/2022 4:59 AM CDT) Pathologist [facility] Rheumatoid Factor <15 <30 IU/mL 10/21/2022 5:36 AM CDT [facility] Rheumatoid Factor Screen Negative Negative 10/21/2022 5:36 AM CDT [facility] Blood BLOOD SPECIMEN / Unknown Venipuncture / Unknown 10/21/2022 4:59 AM CDT 10/21/2022 5:06 AM CDT Good Antunez MD LAB - CHEMISTRY ORDE HIRAL Performing Organization Address City/[facility]/ZIP Co de Phone Number [address] [address], [place] [phone] * TROPONIN-I HIGH SENSITIVE BASELINE + 1HR (10/21/2022 4:59 AM CDT) Troponin I High Sensitive <3 <=14 ng/L 10/21/2022 5:46 AM CDT [facility] Blood BLOOD SPECIMEN / Unknown Venipuncture / Unknown 10/21/2022 4:59 AM CDT 10/21/2022 5:09 AM CDT Jim Walter MD LAB - CHEMISTRY ORD DIMAS Performing Organization Address [facility]/ZIP Co de Phone Number [address] [address], [place] [phone] * (ABNORMAL) GLUCOSE - POINT OF CARE (10/21/2022 4:58 AM CDT) Glucose WB/POC 166(H) 70 - 115 mg/dL 10/21/2022 5:02 AM CDT [facility] Specimen Type Cap Fingerstick 2022 5:02 AM CDT [facility] Blood BLOOD SPECIMEN / Unknown 10/21/2022 4:58 AM CDT 10/21/2022 5:02 AM CDT Emir Vail MD LAB - POINT OF CARE ORDERABLES Performing Organization Address City/[facility]/ZIP Co de Phone Number [address] [address], [place] [phone] * (ABNORMAL) GLUCOSE - POINT OF CARE (10/21/2022 1:21 AM CDT) Glucose WB/POC 164(H) 70 - 115 mg/dL 10/21/2022 1:25 AM [facility] Specimen Type Cap Fingerstick 2022 1:25 AM [facility] Blood BLOOD SPECIMEN / Unknown 10/21/2022 1:21 AM CDT 10/21/2022 1:25 AM CDT Emir Vail MD LAB - POINT OF CARE ORDERABLES [facility] [address] [place] [address], [facility] [phone] * (ABNORMAL) BLOOD GASES ART + COOX PANEL (10/20/2022 10:46 PM CDT) [facility] pH Arterial 7.36 7.35 - 7.45 pH 10/20/2022 10:53 PM [facility] pO2 Arterial 179(H) 80 - 100 mmHg 10/20/2022 10:53 PM [facility] pCO2 Arterial 32(L) 35 - 45 mmHg 10:53 PM [facility] HCO3 Arterial 18.1(L) 20.0 - 30.0 mmol/L 10/20/2022 10:53 PM [facility] BE Arterial -6.5(L) -2.0 - 2.0 mmol/L 10/20/2022 10:53 PM [facility] Oxyhemoglobin Arterial 97.5 % 10/20/2022 10:53 PM [facility] Dexoyhemoglobin (HHB) % <1.0 % 10/20/2022 10:53 PM [facility] Methemoglobin 0.8 0.0 - 2.0 % 10/20/2022 10:53 PM [facility] Carboxyhemoglobin 1.0 0.0 - 2.0 % 2022 10:53 PM [facility] O2 Content Arterial 14.1 Interpret within clinical context ml/dL 10/20/2022 10:53 PM [facility] Hemoglobin by COOX 10.0(L) 12.0 - 15.6 g/dL 10/20/2022 10:53 PM CDT [facility] O2 Saturation Arterial 99 90 - 100 % 10/20/2022 10:53 PM CDT [facility] FI O2 Arterial 40.0 % 10/20/2022 10:53 PM CDT [facility] Blood, arterial ARTERIAL BLOOD SPECIMEN / Unknown Arterial Puncture / Unknown 10/20/2022 10:46 PM CDT 10/20/2022 10:51 PM CDT Narrative [facility] - 10/20/2022 10:53 PM CDT Carboxyhemoglobin Normal Concentration: Non-smokers: 0-2%; Smokers: 0-9%; Toxic: >20% Emir Vail MD LAB - BLOOD GASES OR DERABLES [facility] [address] [place] [address], [facility] [phone] * CT HEAD WO CONTRAST (10/20/2022 9:13 [...] prior. > Dictated by Bassam Jovel M.D. (residential sales) I, Gonzalez Velasco MD have personally reviewed and interpreted this examination/study. 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 (CMS/HCC) ADDITIONAL CLINICAL INFORMATION: Ordering Provider Reason For Exam: ??[facility] COMPARISON: Multiple prior studies, most recently CT [...] effacement of the right lateral ventricle, and [id number] midline shift measuring up to 4 mm [...] DATE/TIME OF EXAM: 10/20/2022 9:13 PM, LOCATION [facility] INDICATION: I63.411: Acute cerebrovascular accident (CVA) due to embolism of right middle cerebral artery (CMS/HCC) ADDITIONAL CLINICAL INFORMATION: Ordering Provider Reason For Exam: [facility] COMPARISON: Multiple prior studies, most recently CT [...] effacement of the right lateral ventricle, and yveci-bv-[id number] midline shift measuring up to 4 mmand [...] prior. > Dictated by Bassam Jovel M.D. (residential sales) I, Gonzalez Velasco MD have personally reviewed and interpreted this examination/study. > Interpreting Provider: Gonzalez Velasco MD on 10/20/2022 11:06 PM Emir Vail MD CT ORDERABLES * (ABNORMAL) BLOOD GAS+COOX+LYTES+METAB ARTERIAL POCT (10/20/2022 7:36 PM CDT) pH Arterial 7.36 7.35 - 7.45 pH 10/20/2022 7:36 PM [facility] pO2 Arterial 180(H) 80 - 100 mmHg 10/20/2022 7:36 PM [facility] pCO2 Arterial 36 35 - 45 mmHg 7:36 PM [facility] HCO3 Arterial 20.3 20.0 - 30.0 mmol/L 10/20/2022 7:36 PM [facility] BE Arterial -4.6(L) -2.0 - 2.0 mmol/L 10/20/2022 7:36 PM [facility] Oxyhemoglobin Arterial 97.1 % 10/20/2022 7:36 PM [facility] Dexoyhemoglobin (HHB) % 1.1 % 10/20/2022 7:36 PM [facility] Methemoglobin 0.8 0.0 - 2.0 % 10/20/2022 7:36 PM [facility] Carboxyhemoglobin 1.0 0.0 - 2.0 % 2022 7:36 PM [facility] Comment:Carboxyhemoglobin No rmal Concentration: Non-smokers: 0-2%; Smokers: 0- 9%; Toxic: >20% O2 Content Arterial 13.4 Interpret within clinical context ml/dL 10/20/2022 7:36 PM [facility] Hemoglobin by COOX 9.5(L) 12.0 - 15.6 g/dL 10/20/2022 7:36 PM [facility] O2 Saturation Arterial 99 90 - 100 % 10/20/2022 7:36 PM [facility] Sodium Whole Blood 143 135 - 145 mmol/L 10/20/2022 7:36 PM [facility] Potassium Whole Blood 3.6 3.5 - 5.5 mmol/L 10/20/2022 7:36 PM [facility] Chloride WB 116(H) 78 - 107 mmol/L 10/20/2022 7:36 PM [facility] Calcium Ionized 1.03 mmol/L 7:36 PM [facility] Ionized Calcium pH Adjusted 1.01(L) 1.19 - 1.34 mmol/L 10/20/2022 7:36 PM [facility] Anion Gap (AG) Arterial 10 8 - 18 mmol/L 10/20/2022 7:36 PM [facility] Glucose WB 155(H) 70 - 115 mg/dL 10/20/2022 7:36 PM [facility] Lactic Acid Whole Blood 1.6 <=2.0 mmol/L 10/20/2022 7:36 PM [facility] Blood, arterial ARTERIAL BLOOD SPECIMEN / Unknown 10/20/2022 7:36 PM CDT 10/20/2022 7:36 PM CDT Emir Vail MD LAB - POINT OF CARE ORDERABLES [facility] [address] [place] [address], [facility] [phone] * BLOOD GAS ART+LYTES+METAB+COOX POC NOTIF (10/20/2022 7:27 PM CDT) Comment Notification Label Only - See Separate Report 10/20/2022 9:00 PM [facility] Other MISCELLANEOUS SAMPLES / Unknown 10/20/2022 7:27 PM CDT 10/20/2022 7:32 PM CDT Lianet Diaz MD LAB - BLOOD GASES OR DERABLES [address] [address], [facility] [phone] * HGB HCT PANEL (10/20/2022 4:40 PM CDT) Hemoglobin 12.0 12.0 - 15.6 g/dL 10/20/2022 5:01 PM CDT [facility] Hematocrit 36.6 35.0 - 45.0 % 10/20/2022 5:01 PM CDT [facility] Blood BLOOD SPECIMEN / Unknown Venipuncture / Unknown 10/20/2022 4:40 PM CDT 10/20/2022 4:56 PM CDT Good Antunez MD LAB - HEMATOLOGY ORD ERABLES Performing Organization Address City/[facility]/ZIP Co de Phone Number [address] [address], [facility] [phone] * ECHO COMPLETE W BUBBLE STUDY (10/20/2022 4:05 PM CDT) BSA [id number] m2 [facility] CV FUJ I PACS LV [...] PACS LVOT diam 2.1 cm SSM CV [facility] I PACS LVOT area 3.46 cm2 [facility] CV [facility] I PACS LV RWT 0.65 [facility] CV [facility] I PACS LV Mahmood A2C 6.823 cm SSM CV F UJI PACS LV Mahmood A4C 7.092 cm S[facility] CV F UJI PACS IVS/LVPW 0.771 SSM CV [facility] I PACS LV mass 2D 86.6232 66 - 150 g [facility] mass index 2D 40.92 44 - 88 g/m2 [facility] E pk arianna 73.89 cm/s S[facility] CV F UJI PACS MV avg E/e' ratio 9.22 SS [facility] A pk arianna 73.505 cm/s [facility] CV F UJI PACS MV E A ratio 1.01 SSM CV FUJI PACS MV E' lateral arianna 7.905 cm/s SS M CV FUJI PACS MV DT 134 ms SSM CV FUJ I PACS MV E' septal arianna 8.119 cm/s SSM CV FUJI PACS MV A duration 66 ms SSM CV FUJI PACS MV E/e' septal 9.1 SSM C [...] SSM CV FUJ I PACS AV pk airanna 1.58 m/s SSM CV FUJ I PACS [...] HR 154 SSM CV FUJ I PACS [id number] 6.054 cm SSM CV FUJ I PACS [id number] 5.318 cm SSM CV FUJ I PACS [...] body. Report dictated by Royer Stovall MD (residential sales). IAmanda MD have personally reviewed and interpreted this [...] body. Report dictated by Royer Stovall MD (residential sales). I, Amanda Prieto MD have personally reviewed and interpreted this examination/study. > Interpreting Provider: Amanda Prieto MD on 10/20/2022 3:31 PM Good Antunez MD DIAGNOSTIC IMAGING O RDERABLES * (ABNORMAL) GLUCOSE - POINT OF CARE (10/20/2022 11:32 AM CDT) Glucose WB/POC 124(H) 70 - 115 mg/dL 10/20/2022 11:42 AM CDT [facility] Specimen Type Cap Fingerstick 2022 11:42 AM CDT [facility] Blood BLOOD SPECIMEN / Unknown 10/20/2022 11:32 AM CDT 10/20/2022 11:42 AM CDT Good Antunez MD LAB - POINT OF CARE ORDERABLES [facility] [address] [place] [address], [facility] [phone] * (ABNORMAL) HEMOGLOBIN A1C (10/20/2022 10:15 AM CDT) Hemoglobin A1c 6.0(H) <=5.6 % 10/20/2022 2:15 PM CDT [facility] Estimated Average Glucose 126 mg/dL 10/20/2022 2:15 PM CDT [facility] Comment: HbA1c Interpretation: Normal : < 5.7% Pre-diabetes: 5.7-6.4% Diabetes: Equal to or greater than 6.5% Test results diagnostic of diabetes should be repeated for confirmation. Treatment target values recommended by ADA and other clinical organizations should be used to evaluate metabolic control in patients. Reference: [place] [employer], Standards of Care in Diabetes [...] Organization Address City/State/ZIP Co de Phone Number [address] [address], [facility] [phone] * CT HEAD NON CONTRAST (10/20/2022 8:17 [...] - 115 mg/dL 10/20/2022 7:54 AM CDT [facility] Specimen Type Cap Fingerstick 2022 7:54 AM CDT [facility] Blood BLOOD SPECIMEN / Unknown 10/20/2022 7:47 AM CDT 10/20/2022 7:54 AM CDT Good Antunez MD LAB - POINT OF CARE ORDERABLES Performing Organization Address City/[facility]/ZIP Co de Phone Number [address] [address], [facility] [phone] * (ABNORMAL) GLUCOSE - POINT OF CARE (10/20/2022 7:44 AM CDT) Glucose WB/POC 32(LL) 70 - 115 mg/dL 10/20/2022 7:54 AM CDT [facility] Specimen Type Cap Fingerstick 2022 7:54 AM CDT [facility] Blood BLOOD SPECIMEN / Unknown 10/20/2022 7:44 AM CDT 10/20/2022 7:54 AM CDT Good Antunez MD LAB - POINT OF CARE ORDERABLES [address] [place] [address], [facility] [phone] * BLOOD TYPE VERIFICATION (10/20/2022 4:00 AM CDT) ABO Rh B POS 10/20/2022 4:3 7 AM CDT [facility] B[facility] LAB Blood Bank BLOOD SPECIMEN / Unknown Venipuncture / Unknown 10/20/2022 4:00 AM CDT 10/20/2022 4:07 AM CDT Tim Callahan MD LAB - BLOOD BANK ORD ERABLES [facility] [address] [place] [address], [facility] [phone] * (ABNORMAL) CBC W/O DIFFERENTIAL (10/20/2022 3:02 AM CDT) WBC 19.5(H) 3.5 - 10.5 10? 3 /uL 10/20/2022 3:30 AM [facility] RBC 3.83 3.80 - 5.20 10? 6 /uL 10/20/2022 3:30 AM [facility] Hemoglobin 11.9(L) 12.0 - 15.6 g/dL 10/20/2022 3:30 AM [facility] Hematocrit 35.4 35.0 - 45.0 % 10/20/2022 3:30 AM [facility] MCV 92.4 80.7 - 98.3 fL 10/20/2022 3:30 AM [facility] MCH 31.1 26.7 - 34.0 pg 10/20/2022 3:30 AM [facility] MCHC 33.6 30.8 - 35.9 g/dL 10/20/2022 3:30 AM [facility] RDW-SD 45.7 36.0 - 50.0 fL 10/20/2022 3:30 AM [facility] RDW-CV 13.5 11.2 - 14.8 % 10/20/2022 3:30 AM [facility] Platelet Count 292 150 - 400 10? 3 /uL 10/20/2022 3:30 AM [facility] MPV 9.9 9.4 - 12.9 fL 10/20/2022 3:30 AM [facility] nRBC Absolute 0.00 0 10? 3 /uL 10/20/2022 3:30 AM [facility] nRBC Auto 0.0 0 /100 WBC 10/20/2022 3:30 AM [facility] Blood BLOOD SPECIMEN / Unknown Venipuncture / Unknown 10/20/2022 3:02 AM CDT 10/20/2022 3:09 AM CDT Jim Walter MD LAB - HEMATOLOGY OR DERABLES [facility] [address] [place] [address], [facility] [phone] * (ABNORMAL) BASIC METABOLIC PANEL (CALCIUM TOTAL) (10/20/2022 3:02 AM CDT) BUN 6(L) 7 - 26 mg/dL 10/20/2022 3:36 AM [facility] Creatinine 0.50(L) 0.56 - 0.96 mg/dL 10/20/2022 3:36 AM [facility] Sodium 138 136 - 145 mmol/L 10/20/2022 3:36 AM [facility] Potassium 3.6 3.5 - 4.5 mmol/L 10/20/2022 3:36 AM [facility] Chloride 108(H) 98 - 107 mmol/L 10/20/2022 3:36 AM [facility] CO2 21(L) 22 - 29 mmol/L 10/20/2022 3:36 AM [facility] Glucose 140(H) 70 - 115 mg/dL 10/20/2022 3:36 AM [facility] Calcium 8.2(L) 8.4 - 10.2 mg/dL 10/20/2022 3:36 AM [facility] Anion Gap 13 8 - 18 10/20/2022 3:36 AM [facility] BUN/Creatinine Ratio 12 7 - 23 10/20/2022 3:36 AM [facility] Osmolality Calculated 286 270 - 300 mOsm/kg 10/20/2022 3:36 AM [facility] eGFR by CKD-EPI >90 >=90 mL/min/1.7 3 m2 10/20/2022 3:36 AM [facility] Blood BLOOD SPECIMEN / Unknown Venipuncture / Unknown 10/20/2022 3:02 AM CDT 10/20/2022 3:09 AM CDT Jim Walter MD LAB - CHEMISTRY ORD ERABLES [facility] [address] [place] [address], [facility] [phone] * LUPUS ANTICOAGULANT PANEL (10/20/2022 3:02 AM CDT) APTT 24.4 23.0 - 38.4 Seconds 10/20/2022 11:35 AM [facility] PT 13.6 12.1 - 14.8 Seconds 10/20/2022 11:35 AM [facility] INR 1.1 See Comment 10/20/2022 11:35 AM [facility] [place] Buffer 37.8 Seconds 023 11:35 AM [facility] [place] Phospholipid 33.2 Seconds 10/20/2022 11:35 AM [facility] [place] Delta 4.6 <8.0 Seconds 10/20/2022 11:35 AM [facility] Interpretation [place] Negative 10/20/2022 11:35 AM [facility] Comment:Up to 15-20% of douglas [...] Antunez MD LAB - HEMATOLOGY ORD ERABLES [facility] [place] [address] [place] [address], [facility] [phone] * (ABNORMAL) PROTEIN S ACTIVITY (10/20/2022 3:02 AM CDT) Protein S Activity 134(H) 57 - 131 % 10/21/2022 10:[address] [facility] [employer] ([facility]) Comment: INTERPRETIVE INFORMATION: Protein S, Functional Patients [...] reference intervals for this test in the [facility] Test Directory ([employer]). Performed By: [facility] [address] [place] [address] Film Spooler: Boo Bond MD, PhD CLIA Number: [id number] Blood BLOOD SPECIMEN / Unknown Venipuncture / Unknown 10/20/2022 3:02 AM CDT 10/20/2022 3:09 AM CDT Good Antunez MD LAB - COAGULATION OR DERABLES [facility] [employer] ([facility]) [address] [place], [place] [id number] * PROTEIN C ACTIVITY (10/20/2022 3:02 AM CDT) Protein C Activity 150 83 - 168 % 10/21/2022 9:[address] [facility] [employer] ([facility]) Comment: INTERPRETIVE INFORMATION: Protein C, Functional Patients [...] reference intervals for this test in the [facility] Test Directory ([employer]). Performed By: [facility] [employer] [address] [place] [address] Film Spooler: Boo Bond MD, PhD CLIA Number: [id number] Blood BLOOD SPECIMEN / Unknown Venipuncture / Unknown 10/20/2022 3:02 AM CDT 10/20/2022 3:09 AM CDT Good Antunez MD LAB - COAGULATION OR DERABLES [facility] [employer] ([facility]) [address] [place] [address], [facility] * (ABNORMAL) LIPID PROFILE (10/20/2022 3:02 AM CDT) [facility] Signature Cholesterol Total 173 <200 mg/dL 10/20/2022 3:34 AM T [facility] HDL 42 >40 mg/dL 10/20/2022 3:34 AM [facility] Comment: ATP III Classification of HDL Cholesterol: ? <40 mg/dL: ??Considered a major risk factor. ? >60 mg/dL: ??Considered a negative risk factor. ? LDL Calculated 91 <100 mg/dL 10/20/2022 3:34 AM [facility] Comment: ATP III Classification of LDL Cholesterol: ?<100 mg/dL: ??Optimal ? 100 - 129 mg/dL: ??Near Optimal/Above Optimal ? 130 - 159 mg/dL: ??Borderline High ? 160 - 189 mg/dL: ??High ?>190 mg/dL: ??Very High ? Triglycerides 201(H) <150 mg/dL 10/20/2022 3:34 AM CDT [facility] Comment: ATP III Classification of Triglycerides: ?<150 mg/dL: ??Normal ? 150 - 199 mg/dL: ??Borderline High ? 200 - 400 mg/dL: ??High ?>500 mg/dL: ??Very High Blood BLOOD SPECIMEN / Unknown Venipuncture / Unknown 10/20/2022 3:02 AM CDT 10/20/2022 3:09 AM CDT Jim Walter MD LAB - CHEMISTRY ORD ERABLES Performing Organization Address City/[facility]/ZIP Co de Phone Number [address] [address], [place] [phone] * (ABNORMAL) GLUCOSE - POINT OF CARE (10/19/2022 7:50 PM CDT) Glucose WB/POC 140(H) 70 - 115 mg/dL 10/19/2022 7:50 PM CDT [facility] Specimen Type Cap Fingerstick 2022 7:50 PM CDT [facility] Blood BLOOD SPECIMEN / Unknown 10/19/2022 7:50 PM CDT 10/19/2022 7:50 PM CDT Good Antunez MD LAB - POINT OF CARE ORDERABLES Performing Organization Address [facility]/ZIP Co de Phone Number [address] [address], [place] [phone] * URINE DRUG SCREEN IMMUNOASSAY (10/19/2022 2:10 PM CDT) Amphetamines Screen Urine Negative Negative: < 1000 ng/mL 10/19/2022 2:48 PM CDT [facility] Barbiturates Screen Urine Negative Negative: < 200 ng/mL 10/19/2022 2:48 PM CDT [facility] Benzodiazepine Screen Urine Negative Negative: < 200 ng/mL 10/19/2022 2:48 PM CDT [facility] Opiates Urine Negative Negative: < 300 ng/mL 10/19/2022 2:48 PM CDT [facility] Cocaine Metabolites Urine Negative Negative: < 300 ng/mL 10/19/2022 2:48 PM CDT [facility] Phencyclidine Screen Urine Negative Negative: < 25 ng/ml 10/19/2022 2:48 PM CDT [facility] Cannabinoids Screen Urine Negative Negative: <50 ng/mL 10/19/2022 2:48 PM CDT [facility] Methadone Screen Urine Negative Negative: < 300 ng/mL 10/19/2022 2:48 PM CDT [facility] Fentanyl Screen Urine Negative Negative: <1.5 ng/mL 10/19/2022 2:48 PM CDT [facility] Urine URINE / Unknown Collection / Unknown 10/19/2022 2:10 PM CDT 10/19/2022 2:15 PM CDT Narrative [facility] - 10/19/2022 2:48 PM CDT The Urine Toxicology Screening Panel does not screen for Propoxyphene, Meprobamate, Carisoprodol, Trazodone, [id number] medications and/or volatiles (Acetone, Isopropanol, Methanol or Ethylene Glycol). Ethanol, Salicylate, Acetaminophen, Tricyclic Antidepressants and several therapeutic drugs may be individually assayed in serum or plasma specimen. Toxicology testing by the [facility] is an aid to medical diagnosis and treatment of patients. No documented chain of custody was maintained. Results are intended to be used for clinical purposes only. ? Good Antunez MD LAB - URINE CHEMISTR Y ORDERABLES Performing Organization Address City/[facility]/ZIP Co de Phone Number [facility] [address] [place] [phone], [facility] [phone] * HCG URINE QUALITATIVE (10/19/2022 2:10 PM CDT) Test Urine Negative Negative 10/19/2022 2:29 PM CDT [facility] Urine URINE / Unknown Collection / Unknown 10/19/2022 2:10 PM CDT 10/19/2022 2:15 PM CDT Tim Callahan MD LAB - URINALYSIS ORD ERABLES Performing Organization Address [facility] Co de Phone Number [address] [phone], [facility] [phone] * IR INTRACRANIAL MECH THROMBECT (10/19/2022 10:41 AM CDT) Anatomical Region [...] 11/07/2022 9:21 AM CDT PROCEDURE: ??IR INTRACRANIAL MECH THROMBECT DATE/TIME OF EXAM: ??10/19/2022 10:41 AM [...] Time to Reperfusion: 9:54 Final TICI: 2b Rigging Engineer: Dr. Mitali Walter Liner Roll Changer(s): Isak Monte Vessels: Ultrasound Guided Access of Femoral Artery Ultrasound Guided Access of Radial Artery Arterial line placement in the right radial artery Right Common Carotid Artery Angiogram: Cerebral Intracranial Catheterization Mechanical Thrombectomy with Retrievable Stent and Reperfusion Catheter Angiography Through the Existing Catheter Right Femoral Artery Angiogram Anesthesia: General Anesthesia was performed and monitored by an attending Anesthesiologist and their social human services assistants throughout the entirety of the case Procedural [...] artery demonstrated a patent vessel. A 5 fijian sheath was placed in the radial artery [...] Following a series of exchanges, a 8 Georgian sheath sheath was placed in the right femoral artery. A Guide and a 6 Georgian Penumbra Select Serrano 2 catheter along with [...] system. Hemostasis was achieved using a 8 Georgian Angio-Seal closure device. Hemostasis was immediate at [...] Walter MD - 11/07/2022 PROCEDURE: [facility] TH[facility] DATE/TIME OF EXAM: 10/19/2022 10:41 AM [...] Time to Reperfusion: 9:54 Final TICI: 2b Rigging Engineer: Dr. Mitali Walter Liner Roll Changer(s): Isak Monte Vessels: Ultrasound Guided Access of Femoral Artery Ultrasound Guided Access of Radial Artery Arterial line placement in the right radial artery Right Common Carotid Artery Angiogram: Cerebral Intracranial Catheterization Mechanical Thrombectomy with Retrievable Stent and Reperfusion Catheter Angiography Through the Existing Catheter Right Femoral Artery Angiogram Anesthesia: General Anesthesia was performed and monitored by an attending Anesthesiologist and their social human services assistants throughout the entirety of the case Procedural [...] artery demonstrated a patent vessel. A 5 fijian sheath was placedin the radial artery and was used as an arterial line. Limited ultrasoundof the common femoral artery demonstrated a patent vessel. The take off ofthe profunda and other arteries were identified. A scott scale image was documented. The right common femoral artery was accessed using a micropuncture needle. The needle entry was documented. Following aseries of exchanges, a 8 Georgian sheath sheath was placed in the right femoral artery. A Guide and a 6 Georgian Proximetryumbfrintit Select Serrano 2 catheter along with a [...] arterial system.Hemostasis was achieved using a 8 Georgian Angio-Seal closure device. Hemostasis was immediate at [...] 0 Final TICI: 2b I, Dr. Jim Wlater, was present and performed/supervised theentire procedure. I, Jim Walter MD have personally reviewed and interpreted this examination/study. > Interpreting Provider: Jim Walter MD on 11/07/2022 9:21 AM Emir Vail MD IR ORDERABLES * TYPE + SCREEN PANEL (10/19/2022 8:24 AM CDT) Antibody Screen NEG 9:34 AM CDT [facility]OD [facility] ABO Rh B POS 10/19/2022 9:34 AM CDT [facility] Blood Bank BLOOD SPECIMEN / Unknown Venipuncture / Unknown 10/19/2022 8:24 AM CDT 10/19/2022 8:44 AM CDT Tim Callahan MD LAB - BLOOD BANK ORD ERABLES [facility] [address] [place] [address], [facility] [phone] * PT-INR [facility] (10/19/2022 8:24 AM CDT) PT 12.3 12.1 - 14.8 Seconds 10/19/2022 9:04 AM CDT [facility] INR 0.9 See Comment 10/19/2022 9:04 AM CDT [facility] Comment:The suggested therap eutic range for standard coumadin (warfarin) therapy is an INR of 2.0-3.0. For high-risk patients (Mechanical Mitral Valve Prosthesis, etc.), the suggested prophylactic therapeutic range is an INR of 2.5-3.5. Blood BLOOD SPECIMEN / Unknown Venipuncture / Unknown 10/19/2022 8:24 AM CDT 10/19/2022 8:31 AM CDT Tim Callahan MD LAB - COAGULATION OR DERABLES [facility] [address] [place] [address], [facility] [phone] * (ABNORMAL) COMPREHENSIVE METABOLIC PANEL (10/19/2022 8:24 AM CDT) BUN 13 7 - 26 mg/dL 10/19/2022 8:57 AM [facility] Creatinine 0.84 0.56 - 0.96 mg/dL 10/19/2022 8:57 AM [facility] Sodium 139 136 - 145 mmol/L 10/19/2022 8:57 AM [facility] Potassium 4.2 3.5 - 4.5 mmol/L 10/19/2022 8:57 AM [facility] Chloride 108(H) 98 - 107 mmol/L 10/19/2022 8:57 AM [facility] CO2 21(L) 22 - 29 mmol/L 10/19/2022 8:57 AM [facility] Glucose 109 70 - 115 mg/dL 10/19/2022 8:57 AM [facility] Calcium 8.9 8.4 - 10.2 mg/dL 10/19/2022 8:57 AM [facility] Protein Total 7.7 6.0 - 8.3 g/dL 10/19/2022 8:57 AM [facility] Albumin 3.5 3.4 - 5.0 g/dL 10/19/2022 8:57 AM [facility] Bilirubin Total 0.1(L) 0.2 - 1.2 mg/dL 10/19/2022 8:57 AM [facility] Alkaline Phosphatase 52 40 - 150 U/L 10/19/2022 8:57 AM [facility] ALT 16 5 - 55 U/L 10/19/2022 8:57 AM [facility] AST 19 5 - 34 U/L 10/19/2022 8:57 AM [facility] Anion Gap 14 8 - 18 10/19/2022 8:57 AM [facility] BUN/Creatinine Ratio 15 7 - 23 10/19/2022 8:57 AM [facility] Osmolality Calculated 289 270 - 300 mOsm/kg 10/19/2022 8:57 AM [facility] Albumin/Globulin Ratio 0.8(L) 1.1 - 2.3 10/19/2022 8:57 AM [facility] eGFR by CKD-EPI >90 >=90 mL/min/1.7 3 m2 10/19/2022 8:57 AM [facility] Blood BLOOD SPECIMEN / Unknown Venipuncture / Unknown 10/19/2022 8:24 AM CDT 10/19/2022 8:31 AM T Tim Callahan MD LAB - CHEMISTRY ORDE [facility] Organization Address City/State/ZIP Co de Phone Number [facility] [address] [place] [address], [facility] [phone] * (ABNORMAL) CBC W AUTO DIFFERENTIAL (10/19/2022 8:24 AM T) WBC 10.9(H) 3.5 - 10.5 10? 3 /uL 10/19/2022 8:39 AM [facility] RBC 4.73 3.80 - 5.20 10? 6 /uL 10/19/2022 8:39 AM [facility] Hemoglobin 14.4 12.0 - 15.6 g/dL 10/19/2022 8:39 AM [facility] Hematocrit 42.6 35.0 - 45.0 % 10/19/2022 8:39 AM [facility] MCV 90.1 80.7 - 98.3 fL 10/19/2022 8:39 AM [facility] MCH 30.4 26.7 - 34.0 pg 10/19/2022 8:39 AM [facility] MCHC 33.8 30.8 - 35.9 g/dL 10/19/2022 8:39 AM [facility] RDW-SD 43.4 36.0 - 50.0 fL 10/19/2022 8:39 AM [facility] RDW-CV 13.1 11.2 - 14.8 % 10/19/2022 8:39 AM [facility] Platelet Count 342 150 - 400 10? 3 /uL 10/19/2022 8:39 AM [facility] MPV 10.4 9.4 - 12.9 fL 10/19/2022 8:39 AM [facility] nRBC Absolute 0.00 0 10? 3 /uL 10/19/2022 8:39 AM [facility] nRBC Auto 0.0 0 /100 WBC 10/19/2022 8:39 AM [facility] Neutrophils % 67.3 35.0 - 70.0 % 10/19/2022 8:39 AM [facility] Lymphocytes % 23.9 20.0 - 43.0 % 10/19/2022 8:39 AM [facility] Monocytes % 6.4 5.0 - 13.0 % 10/19/2022 8:39 AM [facility] Eosinophils % 1.4 0.0 - 6.0 % 10/19/2022 8:39 AM [facility] Basophil % 0.6 0.0 - 2.0 % 10/19/2022 8:39 AM [facility] Neutrophils Absolute 7.33(H) 1.60 - 7.00 10? 3 /uL 10/19/2022 8:39 AM [facility] Lymphocyte Absolute 2.61 1.10 - 3.90 10? 3 /uL 10/19/2022 8:39 AM [facility] Monocytes Absolute 0.70 0.26 - 1.07 10? 3 /uL 10/19/2022 8:39 AM [facility] Eosinophils Absolute 0.15 0.00 - 0.47 10? 3 /uL 10/19/2022 8:39 AM [facility] Basophils Absolute 0.07 0.00 - 0.08 10? 3 /uL 10/19/2022 8:39 AM CDT [facility] Immature Granulocytes % 0.4 0.0 - 1.0 % 10/19/2022 8:39 AM CDT [facility] Immature Granulocytes Absolute 0.04 10/19/2022 8:39 AM CDT [facility] Blood BLOOD SPECIMEN / Unknown Venipuncture / Unknown 10/19/2022 8:24 AM CDT 10/19/2022 8:31 AM CDT Tim Callahan MD LAB - HEMATOLOGY ORD ERABLES [facility] [address] [place] [address], [facility] [phone] * EKG 12-LEAD (10/19/2022 8:22 AM CDT) Ventricular Rate 129 BPM [facility] MUSE Atrial Rate 129 BPM [facility] MUSE P-R Interval 134 ms [facility] MUSE QRS Duration ms 90 ms [facility] MUSE Q-T Interval ms 318 ms [facility] MUSE QTC Calculation (Bezet) 465 ms [facility] MUSE Calculated P [place] 55 degrees [facility] MUSE Calculated R [place] 13 degrees SL MUSE Calculated T [place] 5 degrees SL MUSE Interpretation EKG SINUS TACHYCARDIA OTHERWISE NORMAL ECG NO PREVIOUS ECGS AVAILABLE Confirmed by SWATHI OTT MDSHORE ([id number]) on 10/19/2022 5:38:23 PM [facility] MUSE 10/19/2022 8:22 AM CDT 10/19/2022 5:38 PM CDT Tim Callahan MD ECG ORDERABLES [facility] MUSE * CT ANGIO BRAIN NECK STROKE [...] DATE/TIME OF EXAM: ??10/19/2022 8:16 AM, LOCATION ??[facility] INDICATION: Code Stroke ADDITIONAL CLINICAL [...] a callosal marginal artery. Procedure Note Lonnie aRe MD - 10/19/2022 PROCEDURE: CT ANGIO BRAIN NECK STROKE, DATE/TIME OF EXAM: :16 AM, LOCATION [facility] INDICATION: Code Stroke ADDITIONAL CLINICAL [...] 0.9 - 1.2 10/19/2022 8:18 AM CDT [facility] Device [id number] 10/19/2022 8:18 AM CDT [facility] Rigging Engineer ID [id number] 10/19/2022 8:18 AM CDT [facility] Blood BLOOD SPECIMEN / Unknown 10/19/2022 8:09 AM CDT 10/19/2022 8:18 AM CDT Provider Unknown LAB - POINT OF CARE ORDERABLES [address] [address], [facility] [phone] * CREATININE - POCT INTERFACED (10/19/2022 8:08 AM CDT) Creatinine POCT 0.78 0.30 - 1.30 mg/dL 10/19/2022 8:18 AM CDT [facility] eGFR >90 >90 mL/min/1.7 3 m2 10/19/2022 8:18 AM CDT [facility] Blood BLOOD SPECIMEN / Unknown 10/19/2022 8:08 AM CDT 10/19/2022 8:18 AM CDT Provider Unknown LAB - POINT OF CARE ORDERABLES [address] [address], [place] [phone] * CT BRAIN - Stroke (10/19/2022 8:03 [...] DATE/TIME OF EXAM: ??10/19/2022 8:04 AM, LOCATION ??[facility] INDICATION: Code Stroke ADDITIONAL CLINICAL [...] DATE/TIME OF EXAM: 10/19/2022 8:04 AM, LOCATION [facility] INDICATION: Code Stroke ADDITIONAL CLINICAL [...] - 115 mg/dL 10/19/2022 8:01 AM CDT [facility] Specimen Type Cap Fingerstick 2022 8:01 AM CDT [facility] Blood BLOOD SPECIMEN / Unknown 10/19/2022 7:56 AM CDT 10/19/2022 8:01 AM CDT Provider Unknown LAB - POINT OF CARE ORDERABLES [facility] [address] [place] [address], [facility] [phone] documented in this encounter Visit Diagnoses Diagnosis [...] removable percutaneous endoscopic gastrostomy (PEG) tube (HCC) Acquired gastric wall deformity Other specified disorder of stomach and duodenum Iliac artery occlusion, 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 documented in this encounter Admitting Diagnoses Diagnosis Right middle cerebral artery stroke (HCC) Unspecified cerebral artery occlusion with cerebral infarction documented in this encounter Administered Medications Inactive Administered Medications - up to 3 most recent administrations Medication Order MAR Action Action Date Dose Rate Site 0.9% NaCl injection 10-40 mL 10-40 mL, [...] dose on Sun10/19/22 at 0900, Until Discontinued $ Given 11/17/2022 5:34 AM CDT 3 mL $ Given 11/16/2022 9:46 PM CDT 3 mL $ Given 11/16/2022 3:13 PM CDT 3 mL 0.9% NaCl injection 3 mL 3 mL, Intracatheter, PRN, Other, peripheral line flush, Starting on Katy 10/19/22 at 0820, Until Sun11/17/22 at 1626, Flush after each use and blood draws. $ Given 11/16/2022 5:57 AM CDT 3 mL $ Given 11/12/2022 9:44 PM CDT 3 mL $ Given 11/09/2022 6:36 AM CDT 3 mL acetaminophen (Tylenol) tablet 500 mg 500 mg, Enteral Tube, EVERY 6 HOURS PRN, Fever, Mild Pain, Moderate Pain, Starting on 11/14/22 at 1100, Until Sun11/17/22 at 1626, Patient [...] 1:52 PM CDT 500 mg G Tube bisacodyl (Dulcolax) suppository 10 mg 10 mg, Rectal, DAILY PRN, Constipation, Starting on Sun11/05/22 at 0730, Until Sun11/17/22 at 1626, Third line for constipation $ Given 11/05/2022 10:57 AM CDT 10 mg doxycycline monohydrate capsule 100 mg 100 mg, [...] therapy: Blood, Urine/Genitourinary, Upper Respiratory, Lower Respiratory, CONSTRUCTION CODE ADMINISTRATOR $ Given 11/17/2022 9:10 AM CDT 100 [...] 100 mg A bd Left Lower Quadrant guaiFENesin (Robitussin) solution 10 mL 10 mL, Enteral Tube, EVERY 12 HOURS, First dose on 10/23/22 at 0915, Until Discontinued $ Given 11/17/2022 9:10 AM CDT 10 mL G Tube $ Given 11/16/2022 9:47 PM CDT 10 mL G Tube $ Given 11/16/2022 12:07 PM CDT 10 mL G Tube iopamidol (Isovue 370) 76 % contrast Intravenous, CONTRAST ONCE, Starting on Katy 11/16/22 at 1624, Until 11/17/22 at 1626 $ Given - Contrast 11/16/2022 4:24 PM CDT 100 mL lansoprazole (Prevacid) suspension 30 mg 30 mg, Enteral Tube, DAILY BEFORE BREAKFAST, First dose (after last reorder) on 11/15/22 at 0700, Until Discontinued, Refrigerate. Shake well before using. $ Given 11/17/2022 5:34 AM CDT 30 mg G Tube $ Given 11/16/2022 5:56 AM CDT 30 mg G Tube $ Given 11/15/2022 5:44 AM CDT 30 mg G Tube loratadine (Claritin) tablet 10 mg 10 mg, Enteral Tube, DAILY, First dose (after last modification) on 10/21/22 at 0900, Until Discontinued $ Given 11/17/2022 9:10 AM CDT 10 mg G Tube $ Given 11/16/2022 10:04 AM CDT 10 mg G Tube $ Given 11/15/2022 9:20 AM CDT 10 mg G Tube meropenem (Merrem) 2,000 mg in 0.9% NaCl [...] PM CDT 2,000 mg 280 mL /hr metoprolol tartrate IR (Lopressor) tablet 25 mg 25 mg, Enteral Tube, EVERY 12 HOURS, First dose (after last modification) on Sun10/23/22 at 0900, Until Discontinued, Please hold for SBP < 90 mmHg $ Given 11/17/2022 9:10 AM CDT 25 mg G Tub e $ Given 11/16/2022 9:48 PM CDT 25 mg G Tube $ Given 11/16/2022 10:03 AM CDT 25 mg G Tube oxyCODONE (immediate release) (Roxicodone) tablet 5 [...] 3:44 AM CDT 5 mg G Tube perflutren lipid microsphere (Definity) injection 0.5 mL 0.5 mL, Intravenous, INTRA-PROCEDURE MULTIPLE, 6 doses, Starting on Sun11/06/22 at 1308, Until Sun11/17/22 at 1626, For Echo Procedure - Per Protocol Give slowly Shake well before using. $ Given 11/06/2022 1:48 PM CDT 0.5 mL polyethylene glycol 3350 (Miralax) packet 17 g [...] Sun11/17/22 at 1626, Second line for constipation tamsulosin (Flomax) capsule 0.4 mg 0.4 mg, [...] 9:20 AM CDT 0.4 mg G Tube triamcinolone acetonide (Kenalog) 0.1 % ointment Topical, 2 TIMES DAILY, First dose on Sun11/15/22 at 1330, Until Discontinued, Apply to itchy areas on skin, especially at sites where adhesives are placed, twice daily. $ Given 11/17/2022 9:10 AM CDT $ Given 11/15/2022 9:43 PM CDT $ Given 11/15/2022 1:48 PM CDT verapamil (Isoptin) tablet 40 mg 40 mg, [...] INSTRUCTIONS: P-Listed item. Special Disposal Required. . documented in this encounter Active and Recently [...] Samuel, AMBROSE)1513 ($ Given - Provider: Tasha Clay RN)2146 ($ Given - Provider: Carrillo Avilez RN) 0534 ($ Given - Provider: Carrillo Avilez RN)1330 (Not Administered - Provider: Chin Cabello RN - Reason: IV Currently Infusing) 0.9% NaCl IV bolus (COMPLETED) 500 mL, at 491.8 mL/hr, Administer over 61 Minutes, ONCE, 1 dose, On Sun11/15/22 at 0830 1001 ($ New Bag/Syringe - Provider: Radha Covarrubias, AMBROSE)1454 (Stopped - Provider: Radha Covarrubias RN) doxycycline monohydrate capsule 100 mg 100 [...] therapy: Blood, Urine/Genitourinary, Upper Respiratory, Lower Respiratory, CONSTRUCTION CODE ADMINISTRATOR 0920 ($ Given - Provider: Radha Covarrubias RN)212 ($ Given - Provider: Shruti Samuel, AMBROSE) 1004 ($ Given - Provider: Tasha Clay, AMBROSE)2146 ($ Given - Provider: Carrillo Avilez, AMBROSE) 0910 ($ Given - Provider: Chin Cabello, RN) enoxaparin (Lovenox) injection 100 mg 100 mg (rounded from 95.3 mg = 1 mg/kg ? 95.3 kg), Subcutaneous, EVERY 12 HOURS, First dose on Sun11/16/22 at 0830, Until Discontinued, (for prefilled syringes) do not expel air bubble from the syringe prior to the injection Remind Patient to not rub injection site. Could cause hematoma. 1004 ($ Given - Provider: Tasha Clay RN)2145 ($ Given - Provider: Carrillo Avilez RN) 0909 ($ Given - Provider: Chin Cabello, RN) guaiFENesin (Robitussin) solution 10 mL 10 mL, Enteral Tube, EVERY 12 HOURS, First dose on Sun10/23/22 at 0915, Until Discontinued 0920 ($ Given - Provider: Radha Covarrubias RN)213 ($ Given - Provider: Shruti Samuel, AMBROSE) 1207 ($ Given - Provider: Tasha Clay RN - Comment: AM dose given late)2146 ($ Given - Provider: Carrillo Avilez RN) 0910 ($ Given - Provider: Chin Cabello, RN) iopamidol (Isovue 370) 76 % contrast Intravenous, CONTRAST ONCE, Starting on Katy 11/16/22 at 1624, Until Sun11/17/22 at 1626 1624 ($ Given - Contrast - Provider: Ana Montaño, RT(R)CT) lansoprazole (Prevacid) suspension 30 mg 30 mg, Enteral Tube, DAILY BEFORE BREAKFAST, First dose (after last reorder) on Sun11/15/22 at 0700, Until Discontinued, Refrigerate. Shake well before using. 0544 ($ Given - Provider: Bess John RN) 0556 ($ Given - Provider: Shruti Samuel, RN) 0534 ($ Given - Provider: Carrillo Avilez, AMBROSE) lidocaine (Xylocaine) 1 % injection (COMPLETED) Subcutaneous, ONCE, 1 dose, On 11/15/22 at 1215 1158 ($ Given - Provider: Josesito Alexis, RT(R) - Comment: Lumbar Region) loratadine (Claritin) tablet 10 mg 10 mg, Enteral Tube, DAILY, First dose (after last modification) on 10/21/22 at 0900, Until Discontinued 0920 ($ Given - Provider: Radha Covarrubias RN) 1004 ($ Given - Provider: Tasha Clay, AMBROSE) 0910 ($ Given - Provider: Chin Cabello RN) meropenem (Merrem) 2,000 mg in 0.9% NaCl IV 140 mL IVPB 2,000 mg, at 280 mL/hr, Intravenous, EVERY 8 HOURS, First dose on 11/12/22 at 0830, Until Discontinued, Indication for restricted [...] 0406 ($ New Bag/Syringe - Provider: Shruti Samuel, AMBROSE)0438 (Stopped - Provider: Shruti Samuel, RN)1209 ($ New Bag/Syringe - Provider: Tasha Clay, AMBROSE)1246 (Stopped - Provider: Tasha Clay, RN)2146 ($ New Bag/Syringe - Provider: Carrillo Avilez, AMBROSE)2226 (Stopped - Provider: Carrillo Avilez, RN) 0408 ($ New Bag/Syringe - Provider: Carrillo Avilez, AMBROSE)0443 (Stopped - Provider: Carrillo Avilez, RN)1327 ($ New Bag/Syringe - Provider: Chin [...] 0534 ($ Given - Provider: Carrillo Avilez RN)1404 ($ Given - Provider: Chin Cabello, [...] MAR. 0921 ($ Given - Provider: Radha Covarrubias, AMBROSE) 0344 ($ Given - Provider: Shruti Samuel RN)1003 ($ Given - Provider: Tasha Clay, AMBROSE)1741 ($ Given - Provider: Tasha Clay, RN) polyethylene glycol 3350 (Miralax) packet 17 [...] documented as of this encounter Care Teams Logistics Coordinator Relationship Specialty Start Date End Date Jean Joy MD PCP - OBGYN 12/27/07 Yvan Booth MD [address] [place] [phone] PCP - General 11/04/09 01/04/23 Jaden Thakur DO [address] [place] [address] [phone] PCP - Attributed-[facility] [facility] 09/10/19 06/28/23 documented as of this encounter
--- OUTSIDE RECORDS SUMMARY | 2024-03-19 20:40 | XMS_ITS | Encounter Summary ---
Author Organization [facility] Address [address] [place] [address] Care Team Providers Care Underwriting Specialist Name Role Phone Jean Joy MD Unavailable Yvan Booth MD Primary Care Provider [phone] Jaden Thakur DO Unavailable [phone] Reason for Visit * Auth/Cert (Routine) Specialty Diagnoses / Procedures Referred By Contac t Referred To Contact Referral ID Status Reason Start Date Expiration Date Visits Re quested Visits Authorized [id number] 1 1 Encounter Details Date Type Department Care Team (Late st Contact Info) Description 2022 2:23 PM CDT Anesthesia Event [facility] [address] [place] [id number] [place] [address] [place] [phone] Maria Luisa Garvin Anes Asst [address] [place] [address] Anesthesia Record Procedure Summary Procedure Name Responsible Anesthesiologist Anesthesia Start Time Anesthesia Stop Time ESOPHAGOGASTRODUODENOSCOPY ( EGD) DIAGNOSTIC with PEG Placement (Esophagus) Trevor Kearney MD 11/01/22 1423 11/01/22 1520 Events Date Time Event Comment 2022 1416 1423 An Start 1423 Pt In Room 1423 An Start Data 1424 PT Reassessment 1426 Timeout Anesthesia part icipated in timeout at the time documented in the record by nursing. 1428 Induction 1428 Anes Ready 1435 Proc Start 1507 Quick Note SCOPE OUT 1509 Proc Stop 1513 An Emergence 1514 Quick Note PUTTING BINDER ON 1519 an stop data 1520 Pt out of Room 1520 An Stop Meds Name Total lidocaine PF 2% 100 mg propofol 200mg/20mL injection 150 mg propofol 500 mg/50 mL injection 387.87 m g glycopyrrolate 0.4 mg/2mL injection 0.1 mg NS (0.9% NaCl) 600 mL * Agents Name Insp. N2O Exp. N2O O2 * Blood No blood administrations on file. Lines, Drains, and Airways Type Details Placement Removal Peripheral IV Orientation: Anterio r, Left; Placed By: Yassine Suarez RN; Tolerance: Well 10/31/22 1825 by 11/06/22 1658 by Zeinab Vargas RN Puncture Site 10/19/22; 0854; Dr Walter; Right; Femoral; Arterial; Dr Walter; 11/06/22; 1327 10/19/22 0854 by Yeimy Booker RN 11/06/22 1327 by Zeinab Vargas RN Puncture Site 10/19/22; 0910; Dr Walter; Right; Radial; Arterial; 11/06/22; 1327 10/19/22 0910 by Yeimy Booker RN 11/06/22 1327 by Zeinab Vargas RN Puncture Site 10/19/22; 0915; Dr Walter; Right; Femoral; Arterial; 11/06/22; 1328 10/19/22 0915 by Yeimy Booker RN 11/06/22 1328 by Zeinab Vargas RN Procedural Site (Incision) 10/20/22; 6; Right; Head; Bacitracin ointment. carla 4x4, telfa,mediport tape ; 11/17/22; 215410/20/222115 by Germaine Loja RN 11/17/222154 by Generic, Auto Release Urethral Catheter 10/26/22; 1000; Luis Angel Parks RN; Straight-tip; No; 16; 10 mL; Yes, Seal Intact; 1; Well; 11/05/22; Per protocol; elizabeth lizama RN 10/26/22 1000 by Pardeep Parks RN 11/05/22 0000 by Vanessa Saldivar RN Gastric Tube 10/28/22; 2300; NGT; Nostril/Nare, Left; 11/01/22; 1900; (Not present on assessment); Other (Comments) 10/28/22 2300 by Karina Cottrell RN 11/01/22 1900 by Jessica Enriquez RN Procedural Site (Incision) 10/30/22; 1439; Right; Groin; CLOSURE, RIGHT GROIN SUTURED.EXOFIN SKIN GLUE; 11/17/22; 21510/30/22 1439 by Alfreda Richards RN 11/17/22 215 by Generic, Auto Release Peripheral IV Date: 10/31/22; Time : 0236; Orientation: Left, Posterior; Placed By: AMBROSE Acuña; Tolerance: Well 10/31/22 0236 by Ascencion Wade RN 11/06/22 1659 by Zeinab Vargas RN Gastric Tube 11/01/22; 1445; Dr. Metz; Other (PEG Tube); Left; 6; 24; Well; 11/04/22 11/01/22 1445 by Jackelyn Espinal RN 11/04/22 0000 by Zeinab Vargas RN Enteral - 11/01/22; 1445 (Per GI note); PEG; Abdomen, Left, Upper; 24 (Per GI note); 01/10/23; 1646; Not present on admission, removal date unknown 11/01/22 1445 by Jessica Enriquez RN 01/10/23 1646 by Dixie Fuentes RN documented in this encounter Social History Tobacco [...] Recorded Patient Health Questionnaire-2 Score 0 11/02/2022 [facility] - [...] as of this encounter Progress Notes * Trevor Kearney MD - 2022 3:25 PM CDT ANESTHESIA POSTOP EVALUATION NOTE Procedure: ESOPHAGOGASTRODUODENOSCOPY (EGD) DIAGNOSTIC with PEG Placement (Esophagus) Consuelo Darby is a 42 year old female Patient Vitals for the past 6 hrs: BP Temp Pulse Resp SpO2 Pain Rating Score #1 Pain Scale/Observation Pulse - (SPO2/Cuff) 11/01/22 1000 -- -- 90 13 96 % -- CPOT -- 11/01/22 1100 -- -- 88 21 95 % -- CPOT -- 11/01/22 1200 126/59 97.8 ??F (36.6 ??C) 84 17 96 % -- CPOT -- 11/01/22 1300 128/66 -- 94 17 97 % -- CPOT 96 bpm 11/01/22 1351 144/65 98.5 ??F (36.9 ??C) 92 20 96 % 0 N 92 bpm 11/01/22 1400 129/71 -- 97 22 96 % -- -- 97 bpm 11/01/22 1524 133/94 -- -- -- -- -- -- -- 11/01/22 1525 129/73 98 ??F (36.7 ??C) 90 25 97 % 0 N 91 bpm 11/01/22 1530 142/78 -- 99 18 97 % -- -- 99 bpm 11/01/22 1535 137/67 -- -- -- -- -- -- -- 11/01/22 1536 -- -- 85 24 98 % 0 N 86 bpm Anesthesia Type: general Pre-op Diagnosis Codes: * Malnutrition, unspecified type (CMS/HCC) [E46] Mental Status: sufficiently recovered from acute administration of anesthesia to participate in theevaluation and awake Neuro Status: No numbness, tingling or visual disturbances Respiratory Function: natural Cardiac Function: stable Postop Pain: acceptable to the patient Postop Hydration: adequate Postop Nausea: none Assessment: no apparent anesthetic complications, patient tolerated procedure well and no evidence of recall Patient Disposition: Release from Anesthesia Care NOTABLE EVENTS: No notable events documented. * Trevor Kearney MD - 2022 2:09 PM CDT ANESTHESIA PREOPERATIVE EVALUATION NOTE Procedure: ESOPHAGOGASTRODUODENOSCOPY (EGD) DIAGNOSTIC with PEG Placement (Esophagus) NPO status: Since Midnight (2022 1:58 PM) Vitals: No data found. LMP: No LMP recorded (lmp unknown). (Menstrual status: Continuous Control). OB Status: Continuous Control ANESTHESIA PRE-EVALUATION NOTE History of Present Illness: Patient is a 41 year old female with PMH of HTN, GERD, GENESIS who developed acute L-sided sensory and motor deficits, dysarthria, L gaze palsy, L hemianopsia. Code IVR was activated and underwent [id number] of R MCA M1 occlusion on 10/19/2022. Underwent R decompressive hemicraniectomy on 10/20/2022. 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 Plan for Peg tube placement today (case was cancelled yesterday for recent heparin admin.) Previous Airway Management: ETT Placed: Intubation Adjuncts: Eschmann Stylet ETT Size: 7 Blade Type: MAC Blade Size: 3 GradeGrade: 1 Mask Airway: Easy The patient is a current non-smoker (Quit in 2014). The patient was not instructed to abstain from smoking on day of procedure. The patient did not smoke on the day of the procedure. Physical Exam: Orientation X3: unable to assess. Neck ROM: limited TM Distance: > 3 FB Heart: normal - S1 S2 Lungs: clear to ausculation bilaterally Abdomen Exam: obese and soft Physical Exam Additional Comments: Pt is aphasic and only able to answer yes/no questions with a thumbs up for yes and two fingers for no. Follows commands on RUE/RLE only. Unable to open mouth for airway exam. Chart review today 10/31/22. Review of Systems: History of anesthetic complications: No Malignant Hyperthermia: No GERD: Yes Poor Exercise Tolerance: Yes (left side weakness) Recent Chest Pain: No Shortness of Breath: No (family member endorses increased congestion and coughing up phlegm) AICD/Pacemaker: No Renal Disease: No Diagnostic Tests: ECG(s) reviewed: Yes (10/19/22 - sinus tachycardia, 129 bpm) Chest X-Ray(s) reviewed: Yes. Echo(s) reviewed: Yes. Lab(s) reviewed: Yes (PTT 64.4 on heparin gtt, WBC 21.3, Hgb 7.8 - stable, Plt 584). Other Findings: CT Head WO Contrast - 10/28/2022 1. Evolving right MCA subacute infarct status post decompressive craniectomy. Grossly unchanged right frontotemporal subdural hemorrhage. Grossly unchanged gyriform hyperdensity in the infarcted area may represent subarachnoid hemorrhage. No midline shift. Unchanged mildly dilated ventricles may represent mild hydrocephalus. 2. Unchanged small focus of hypoattenuation in the left frontal lobe likely represents additional subacute infarct. MRI Brain WWO Contrast - 10/24/22 1.Redemonstration of postoperative changes of a right hemicraniectomy with expected postsurgical changes as outlined above. 2.Redemonstration of evolving large right MCA territory infarction with extensive cytotoxic edema and mild external herniation of the brain through the craniectomy defect. Persistent local mass effect on the right cerebral hemisphere, effacement of the right lateral ventricle, and approximately 3-4 mm gmcma-py-vrbi midline shift, grossly similar to the prior. 3.Mild dilation of the left lateral ventricle may represent subtle left ventricular entrapment, overall grossly similar to prior. 4.Additional multiple foci of abnormal diffusion within the left frontotemporal lobes with associated T2 FLAIR hyperintensity representing additional small acute to subacute infarcts, likely of cardioembolic etiology. CT Cardiac Angio - 10/23/22 1. 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 2. Patent coronary vessels within the limitation of the motion artifact given the elevated heart during this exam SARAH - 10/23/22 ??? Aortic??Valve: Valve structure is normal. There [...] 80%. ??? No hemodynamically significant valvular abnormality. TTE - 10/20/22 ??? Left??Ventricle: Left ventricle size is normal. Normal wall thickness. Normal systolic functionwith a visually estimated EF of 60 - 65%. Normal wall motion. Normal diastolic function. ??? Normal RV size and systolic function. ??? No significant valvular abnormalities. ??? Bubble study negative for shunt. ??? Normal IVC and visualized portion of aorta. ANESTHESIA PLAN ASA Score: 4 NPO Status: No solids since midnight and No liquids within 2 hours Anesthesia Plan: general ETT, MAC, TIVA and general Planned Induction: intravenous Planned Postop Destination: ICU (Pt is aphazic) Anesthetic Plan discussion was: Consented The patient's procedural Anesthetic Plan was discussed with the anesthesiologist, social and human services assistant and HEEL SANDER. Overall additional findings/comments: Sandra Zavala APRN-HEEL SANDER 10/31/2022 1:24 PM Chart review . BMI, Height, Weight Tobacco History Estimated body mass index is 36.03 kg/m?? as calculated from the following: Height as of 10/23/22: 1.626 m (5' 4.02 ). Weight as of 10/23/22: 95.3 kg (210 lb). Social History Tobacco [...] have been marked as taking for the 11/01/22 encounter (Anesthesia Event) with Maria Luisa Garvin Anes Asst. No current facility-administered medications for this visit. Facility-Administered Medications Ordered in Other Visits Medication Dose Last Admin ??? 0.9% NaCl 3 mL 3 mL at 11/01/22 0604 And ??? 0.9% NaCl 1-10 mL ??? 0.9% NaCl 3 mL 3 mL at 11/01/22 0604 And ??? 0.9% NaCl 3 mL ??? acetaminophen 500 mg 500 mg at 11/01/22 0132 ??? atorvastatin 80 mg 80 mg at 10/31/22 2018 ??? cefTRIAXone 2 g Stopped at 11/01/22 0243 ??? diphenhydrAMINE-zinc acetate Given at 10/31/22 2018 ??? guaiFENesin 10 mL 10 mL at 10/31/22 2018 ??? heparin 500-2,150 Units/hr Stopped at 11/01/22 0803 ??? iopamidol 100 mL at 10/31/22 1009 ??? lansoprazole 30 mg 30 mg at 11/01/22 0603 ??? loratadine 10 mg 10 mg at 10/31/22 1031 ??? metoprolol tartrate IR 25 mg 25 mg at 10/31/22 2018 ??? oxyCODONE (immediate release) 5 mg ??? polyethylene glycol 3350 17 g 17 g at 10/31/22 1236 ??? senna-docusate 1 tablet 1 tablet at 10/31/22 1235 ??? tamsulosin 0.4 mg 0.4 mg at 10/31/22 1031 ??? vancomycin 1,500 mg Stopped at 11/01/22 0909 ??? vancomycin (VANCOCIN) IV dose per pharmacy ??? verapamil 40 mg 40 mg at 11/01/22 0603 ??? Vitamin D3 (cholecalciferol) 2,000 Units 2,000 Units at 10/31/22 1031 Allergies: Allergies Allergen Reactions ??? 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 (Menstrual [...] F P Comments: Severe PIH Name: Lizabeth Covosiel Vaccine: Lab Results: Recent Labs Component Name 10/19/22 1410 HCGURINE Negative Recent Labs Base Name 10/28/22 2254 [id number] 105 SPECIMENTYPE Cap Fingerstick Recent Labs Component Name 11/01/22 0003 10/23/22 0129 10/22/22 0153 WBC 20.6* - - RBC 3.41* - - HCT 31.6* - - HGB 10.1* - - PLTCOUNT 437* - - PLT - - 199 MCV 92.7 - - MCH 29.6 - - MCHC 32.0 - - MPV 9.8 - - - = values in this interval not displayed. Recent Labs Component Name 10/29/22 1119 ABORH B POS ABSCG NEG Recent Labs Component Name 10/27/22 1208 BLOODU Negative NITRITE Negative PROTEINU Negative Recent Labs Component Name 11/01/22 0003 POTASSIUM 3.7 CALCIUM 8.7 CO2 25 GLUCOSE 128* BUN 8 CREATININE 0.56 Recent Labs Component Name 11/01/22 0003 MAGNESIUM 2.1 Recent Labs Component Name 11/01/22 0003 PHOS 4.1 Recent Labs Component Name 10/30/22 1333 PH 7.40 PO2 228* PCO2 39 BE -0.5 Recent Labs Component Name 11/01/22 0848 11/01/22 0240 PTT 43.6* 67.7* PT - 14.3 INR - 1.1 No results found for requested labs within last 120 days. Recent Labs Result Component Current Result Alkaline Phosphatase 52 (10/19/2022) ALT 16 (10/19/2022) Anion Gap (AG) Arterial 12 (10/30/2022) Anion Gap 13 (2022) AST 19 (10/19/2022) eGFR by CKD-EPI >90 (2022) documented in this encounter Miscellaneous Notes * Anesthesia Transfer of Care - Maria Luisa Garvin Anegunner Asst - 2022 3:20 PM CDT ANESTHESIA TRANSFER OF CARE NOTE Today's Date: 2022 Date of : 1980 Patient: Consuelo Darby Procedure(s) with comments: ESOPHAGOGASTRODUODENOSCOPY (EGD) DIAGNOSTIC with PEG Placement - PEG Tube Placement 24FR Surgeon(s): Primary: Khanh Metz MD Fellow: Devyn Jesus DO Preop Diagnosis: Pre-op Diagnois: * Malnutrition, unspecified type (CMS/HCC) [E46] Pre-op Meds (From admission, onward) Start Stop Status Route Frequency Ordered 11/01/22 1423 0.9% NaCl infusion -- Sent IV CONTINUOUS PRN 11/01/22 1426 10/19/22 0755 0.9% NaCl injection 1-10 mL See Hyperspace for full Linked Orders Report. -- Dispensed IK PRN 10/19/22 0756 10/19/22 0830 0.9% NaCl injection 3 mL See Hyperspace for full Linked Orders Report. -- Dispensed IK EVERY 8 HOURS 10/19/22 0756 10/19/22 0900 0.9% NaCl injection 3 mL See Hyperspace for full Linked Orders Report. -- Dispensed IK EVERY 8 HOURS 10/19/22 0821 10/19/22 0820 0.9% NaCl injection 3 mL See Hyperspace for full Linked Orders Report. -- Dispensed IK PRN 10/19/22 0821 10/25/22 2152 acetaminophen (Tylenol) tablet 500 mg -- Dispensed Enteral Tube EVERY 4 HOURS PRN 10/25/22 2152 10/23/22 2100 atorvastatin (Lipitor) tablet 80 mg -- Dispensed Enteral Tube AT BEDTIME 10/23/22 1122 10/25/22 1407 cefTRIAXone (Rocephin) 2,000 mg in 0.9% NaCl IV 50 mL IVPB -- Dispensed IV EVERY 12 HOURS 10/25/22 0925 10/26/22 1020 diphenhydrAMINE-zinc acetate (Benadryl Extra Strength) 2-0.1 % cream -- Dispensed TP PRN 10/26/22 1021 11/01/22 1423 glycopyrrolate (Robinul) injection -- Sent IV PRN 11/01/22 1426 10/23/22 0915 guaiFENesin (Robitussin) solution 10 mL -- Dispensed Enteral Tube EVERY 12 HOURS 10/23/22 0845 10/31/22 1130 heparin 100 units/mL in dextrose 5 % infusion 11/05/22 1929 Dispensed IV CONTINUOUS 10/31/22 1056 10/31/22 1005 iopamidol (Isovue 370) 76 % contrast 11/02/22 1004 Dispensed IV CONTRAST ONCE 10/31/22 1005 10/20/22 1045 lansoprazole (Prevacid) suspension 30 mg -- Dispensed Enteral Tube DAILY BEFORE BREAKFAST 10/20/22 1032 11/01/22 1428 lidocaine HCl (PF) (Xylocaine MPF) 2 % injection -- Sent IV PRN 11/01/22 1429 10/21/22 0900 loratadine (Claritin) tablet 10 mg -- Dispensed Enteral Tube DAILY 10/20/22 1029 10/23/22 0900 metoprolol tartrate IR (Lopressor) tablet 25 mg Note to Pharmacy: OP sig: Take 1 (one) tablet by mouth 2 times daily -- Dispensed Enteral Tube EVERY 12 HOURS 10/23/22 0716 11/01/22 1035 oxyCODONE (immediate release) (Roxicodone) tablet 5 mg -- Verified Enteral Tube EVERY 6 HOURS PRN 11/01/22 1036 10/20/22 1730 polyethylene glycol 3350 (Miralax) packet 17 g -- Dispensed Enteral Tube DAILY 10/20/22 1652 11/01/22 0315 potassium chloride (Klor-Con) packet 40 mEq 11/01/22 0603 Completed Enteral Tube ONCE 11/01/22 0256 11/01/22 1428 propofol (Diprivan) infusion -- Sent IV CONTINUOUS PRN 11/01/22 1429 11/01/22 1435 propofol (Diprivan) injection -- Sent IV PRN 11/01/22 1437 10/20/22 1730 senna-docusate (Senokot-S) tablet 1 tablet -- Dispensed Enteral Tube DAILY 10/20/22 1652 10/25/22 0900 tamsulosin (Flomax) capsule 0.4 mg -- Dispensed Enteral Tube DAILY 10/24/22 1421 10/31/22 1600 vancomycin (Vancocin) 1,500 mg in 500 mL NaCl IVPB Premix -- Dispensed IV EVERY 8 HOURS 10/31/22 1532 10/25/22 0128 vancomycin (Vancocin) IV dose per pharmacy -- Verified XX DIRECTED 10/25/22 0128 10/20/22 1515 verapamil (Isoptin) tablet 40 mg -- Dispensed Enteral Tube EVERY 8 HOURS 10/20/22 1513 10/21/22 0900 vitamin D3 (Cholecalciferol) 25 MCG (1000 UNITS) tablet 2,000 Units Note to Pharmacy: OP sig: Take 2,000 Units by mouth once daily -- Dispensed Enteral Tube DAILY 10/20/22 1029 Post-op Diagnosis: * Malnutrition, unspecified type (CMS/[facility]) [E46] . Allergies Allergen Reactions ??? 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: Patient Vitals for the past 3 hrs: BP Temp Pulse Resp SpO2 Pain Rating Score #1 11/01/22 1400 129/71 -- 97 22 96 % -- 11/01/22 1351 144/65 98.5 ??F (36.9 ??C) 92 20 96 % 0 11/01/22 1300 128/66 -- 94 17 97 % -- Lines, Drains, and Airways Type Details Placement Removal Gastric Tube 10/28/22; 2299; NGT; Nostril/Nare, Left 10/28/22 230 by Karina Cottrell RN Peripheral IV Date: 10/31/22; Time: 235; Orientation: Left, Posterior; Location: Forearm; Placed By: AMBROSE Acuña; Gauge: 18 Gauge; Tolerance: Well 10/31/22 0236 by Ascencion Wade RN Peripheral IV Orientation: Anterior, Left; Location: Hand; Placed By: Yassine Suarez RN; Gauge: 20 Gauge; Tolerance: Well 10/31/22 1825 Gastric Tube 11/01/22; 1445; Dr. Metz; Other (PEG Tube); Left; 6; 24; Well 11/01/22 1445 by Jackelyn Espinal RN Intraprocedure I/O Totals Intake NS (0.9% NaCl) 600.00 mL Total Intake 600 mL Patient Transfer Location: Endo Recovery Transport Airway: spontaneous respirations Complications: None Handoff Given? Yes Checklist or [...] understanding of report from the receiving PACUteam. Mac Cook documented in this encounter Plan of Treatment Not on file documented as of this encounter Visit Diagnoses Not on filedocumented in this encounter Administered Medications Inactive Administered Medications - up to 3 most recent administrations Medication Order MAR Action Action Date Dose Rate Site 0.9% NaCl infusion Intravenous, CONTINUOUS PRN, Starting on Sun11/01/22 at 1423, Until Sun11/01/22 at 1520, Anesthesia Intra-op $ New Bag/Syringe 2022 2:23 PM CDT glycopyrrolate (Robinul) injection Intravenous, PRN, Starting on Sun11/01/22 at 1423, Until Sun11/01/22 at 1520, Anesthesia Intra-op $ Given 2022 2:23 PM CDT 0.1 mg lidocaine HCl (PF) (Xylocaine MPF) 2 % injection Intravenous, PRN, Starting on Sun11/01/22 at 1428, Until Sun11/01/22 at 1520, Anesthesia Intra-op $ Given 2022 2:28 PM CDT 100 mg propofol (Diprivan) infusion Intravenous, CONTINUOUS PRN, Starting on Sun11/01/22 at 1428, Until Sun11/01/22 at 1520, Anesthesia Intra-op Rate Change 2022 2:44 PM CDT 115 mcg/kg/min 65.757 mL/hr Rate Change 2022 2:35 PM CDT 100 mcg/kg/min 57.18 mL /hr $ New Bag/Syringe 2022 2:28 PM CDT 75 mcg/kg/min 42. 885 mL/hr propofol (Diprivan) injection Intravenous, PRN, Starting on Sun11/01/22 at 1435, Until Sun11/01/22 at 1520, Anesthesia Intra-op $ Given 2022 2:54 PM CDT 25 mg $ Given 2022 2:40 PM CDT 25 mg $ Given 2022 2:35 PM CDT 50 mg documented in this encounter Care Teams Underwriting Specialist Relationship Specialty Start Date End Date Jean Joy MD PCP - OBGYN 12/27/07 Yvan Booth MD [address] [place] [phone] PCP - General 11/04/09 01/04/23 Jaden Thakur DO [address] [place] [id number] PCP - Attributed-[facility] 09/10/19 06/28/23 documented as of this encounter
--- OUTSIDE RECORDS SUMMARY | 2024-03-19 20:42 | XMS_ITS | Encounter Summary ---
Author Organization [facility] Address [address] [place] [address] Care Team Providers Care Confectionery Laboratory Manager Name Role Phone Jean Joy MD Unavailable [phone] Yvan Booth MD Primary Care Provider [phone] Jaden Thakur DO Unavailable [phone] Reason for Visit * Reason Comments Altered [...] Expiration Date Visits Re quested Visits Authorized [id number] 1 1 Encounter Details Date Type Department Care Team (Latest Contact Info) Description 2022 3:00 PM CDT - 2022 3:30 PM CDT Surgery [facility] [address] [place] [address] Khanh Metz MD [address] [facility] [address] [facility] [address] ESOPHAGOGASTRODUODENOSCOPY (EGD) DIAGNOSTIC with PEG Placement Surgery Details Date/Time Status Location OR Service Patient Class Case Class Case Type Trauma Case? 2022 3:00 PM Posted [facility] Endoscopy ENDO 1 Gastroenterology Inpatient Urgent < 24 Hrs Panel 1 Procedure LRB Anes Op Region Wound Class Comments ESOPHAGOGASTRODUODENOSCOPY ( EGD) DIAGNOSTIC with PEG Placement N/A MAC Esophagus Clean Conta minated PEG Tube Placement 24FR Surgeon Surgeon Role Service Panel Khanh Metz MD Primary Gastroenterology 1 Devyn Jesus DO Fellow Gastroenterology 1 documented in this encounter Social History [...] Recorded Patient Health Questionnaire-2 Score 0 11/02/2022 [facility] - [...] Sign Reading Time Taken Comments Blood Pressure 142/78 2022 3:30 PM CDT Pulse 99 2022 3:30 PM CDT Temperature 36.7 ??C (98 ??F) 2022 3:25 PM CDT Respiratory Rate 18 2022 3:30 PM CDT Oxygen Saturation 97% 2022 3:30 PM CDT Inhaled Oxygen Concentration 30% 10/24/2022 2 :00 PM CDT Weight 95.3 kg (210 lb) 10/20/2022 2:00 PM CDT Height 162.6 cm (5' 4 ) 10/20/2022 2:00 PM CDT Body Mass Index 36.05 11/06/2022 11:48 [...] Physician Discharge Summary Patient ID: Consuelo Darby [id number] 42 year old 1980 Admit date: 10/19/2022 [...] > Dictated by Abdifatah Jean MD (residential program director). Alexx Ornelas have personally reviewed and interpreted this examination/study. > Interpreting Provider: Alexx Lopez on 11/17/2022 11:31 AM FL LUMBAR PUNCTURE Result Date: 11/15/2022 IMPRESSION: 1.Successful lumbar puncture under fluoroscopic guidance at L3-L4. > Dictated by Royer Stovall MD (residential program director). Oriana Ornelas MD have personally reviewed and interpreted this examination/study. > Interpreting Provider: Oriana Suarez MD on 11/15/2022 2:16 PM US ABDOMEN LTD W COMP DOPPLER Result Date: 11/14/2022 IMPRESSION: 1.No discrete hepatic lesion or intrahepatic biliary ductal dilatation. 2.Patent hepatic vasculature. Borderline low velocity the main portal vein measuring 18 cm/s. 3.Status post cholecystectomy. > Dictated by Miranda Bowen MD (residential program director). > Dictated by Miranda Bowen (Sheet Combining Operator) 11/14/2022 9:18 AM HEATHER Ornelas MD have [...] MD . Specialty: Neurological Surgery Contact information: [facility] [facility] [address] Contact information for after-discharge care Destination [facility] (ALL LOCATIONS) . Service: Inpatient Rehabilitation Contact information: [address] [place] [address] Discharge Instructions You have been scheduled with Dr. Walter for follow up in regards to your stroke and hospital stay.If the time and/or day of this appointment doesn't work for you, please call [phone] to make changes. Continue Doxycycline and Meropenem [...] incision after showering. Call our office at [phone] for: Chills/fever/Temp greater than 101 degrees If your incision has drainage, swelling, redness, or if it opens. If your foot becomes cold, painful, you have problems moving it, or it changes color After hours number is [phone] and ask for vascular surgery Follow up in clinic with Dr Clay in 4 weeks with vascular studies prior to appt; you will be contacted regarding this To make or change an appt call [phone] Urology Follow-up You have a follow up appointment with Dottie Monreal NP on SundayDecember 06 at 9:45am. Thisis at the [facility], located at [address] [place] [address], [place] [address]. The clinic number is [phone]. It is very important that you make [...] appointment doesn't work for you, please call [phone] to make changes. We may consider hypercoagulability [...] incision after showering. Call our office at [phone] for: Chills/fever/Temp greater than 101 degrees If your incision has drainage, swelling, redness, or if it opens. If your foot becomes cold, painful, you have problems moving it, or it changes color After hours number is [phone] and ask for vascular surgery Follow up in clinic with Dr Clay in 4 weeks with vascular studies prior to appt; you will be contacted regarding this To make or change an appt call [phone] Urology Follow-up You have a follow up appointment with Dottie Monreal NP on SundayDecember 06 at 9:45am. Thisis at the [facility], located at [address], [place]. The clinic number is [phone]. It is very important that you make [...] of this encounter Progress Notes * Chin Cabello, AMBROSE - 11/17/2022 12:57 PM CDT Report given to Katelyn at [facility]. * Anita Richards - 11/17/2022 12:50 PM CDT Facility Transfer Note Actual level of care at discharge: Acute Rehab Facility Discharge Facility Information: [facility] ([address] [place] [address]) [place] Made Aware of Special Needs (if applicable): JAMIE RN Call Report to: [phone] Fax D/C Orders to:[phone] Date/time of transfer: 11/17/2022 @ 2pm Trip# [id number] Transportation: [facility] [phone] Certificate of Medical Necessity rationale: Rt middle [...] contact #: Dr. Frias Completed and Signed [id number] (if applicable): NA Family/Other Notified of Transfer (name/phone): Patient/spouse notified Authorization for Snf Facility: ARU rec'd Authorization for Transportation: NA Verified Qualifying Stay(Skilled Only): NOT APPLICABLE Comments: SW faxed discharge to facility orders, after visit summary, and the MAR report to the accepting facility. Thank you, JAYLENE Holcomb, HUMERA [facility] 11/17/2022 12:50 PM * Elida Yancey RN - 11/17/2022 12:14 PM CDT [facility] has accepted this patient and she is in agreement to be transfered to acute rehab on the [facility] room 303. Patient and family updated at bedside. Room is ready. Accepting physician is Dr. Frias. May fax discharge orders to [phone]. May call report to [phone]. If needed, Loader Technician can be reached at [phone]. Thank you for the referral. Elida Yancey RN, BSN Clinical Liaison [facility] [phone] * Chin Cabello RN - 11/17/2022 11:06 [...] Rehab Facility: Anticipated level of care provider: [facility]: Anticipated Discharge Date: 11/17/22: Discharge Plan: [facility] Rehab [facility] pending bed availability. Orientation Level: Oriented to Person;Oriented to Place;Oriented to Situation: Family Support (Name and Phone): Extended Emergency Contact Information Primary Emergency Contact: Hi Darby Address: [address] [place] [address] [place] [address] [facility] Relation: Spouse Secondary Emergency Contact: Sandra Disla [facility] Mobile Relation: Mother Transportation at Discharge: Ambulance: READMISSION RISK SCORE is 17 at 12:58 PM 11/17/2022.: Name: Maru Mcduffie, RN 4469 * Roderick Hernández, PharmD - 11/17/2022 9:47 [...] Warfarin education completed on 11/06 Roderick Hernández, PharmAbiola 11/17/2022 9:26 AM * Good Antunez MD [...] 111/59 Recent Labs Component Name 11/17/22 0202 11/16/22 0217 11/15/22 021 NA 138 139 137 CL [...] Recent Labs Component Name 11/16/22 0217 11/15/222 11/14/22 0239 NA 139 137 140 CL 104 103 104 CO2 27 26 25 BUN 13 12 11 CREATININE 0.57 0.50* 0.51* CALCIUM 8.8 8.6 8.6 No results for input(s): MG in the last 82084 hours. Recent Labs Component Name 11/16/22 0217 11/15/222 11/14/22238 PHOS 3.5 3.0 3.5 Recent Labs Component Name 11/16/2221611/15/2221111/14/22238 PT 13.9 14.3 15.9* INR 1.1 1.1 1.3 PTT 26.0 28.2 45.9* No results for input(s): A1C in the last 19602 hours. Recent Labs Component Name 10/20/22 0302 [...] > Dictated by Miranda Bowen MD (residential program director). > Dictated by Miranda Bowen (Sheet Combining Operator) 11/14/2022 9:18 AM IHEATHER MD have personally reviewed and interpreted this examination/study. > Interpreting Provider: HEATHER FREGOSO MD on 11/14/2022 9:54 AM XR CHEST 1VW PORTABLE Result Date: 11/13/2022 PROCEDURE: XR CHEST 1VW PORTABLE, DATE/TIME OF EXAM: 11/12/2022 8:45 PM, LOCATION [facility] INDICATION: R50.9: Fever, unspecified fever cause [...] Report dictated by Agnes Olmos DO (residential program director). IPepe MD have p ersonally reviewed and interpreted this examination/study. > Interpreting Provider: Pepe Gonzalez MD on 11/13/2022 11:59 AM MRI BRAIN WWO CONTRAST Result Date: 11/10/2022 PROCEDURE: MRI BRAIN WWO CONTRAST, DATE/TIME OF EXAM: 11/09/2022 11:51 PM, LOCATION [facility] INDICATION: R50.9: Fever, unspecified fever cause [...] of the right lateral ventricle and the hapst-zl-vkra midline shift. Extensive susceptibility artifacts along the [...] DATE/TIME OF EXAM: 11/07/2022 5:25 PM, LOCATION [facility] INDICATION: R50.9: Fever, unspecified fever cause [...] > Dictated by Tim Major MD (residential program director). I, Alexx Lopez have personally reviewed and [...] m-mode, color and spectralDoppler echocardiography. IR INTRACRANIAL [facility] THROMBECT Result Date: 11/07/2022 PROCEDURE: IR [facility]IAL [facility] DATE/TIME OF EXAM: 10/19/2022 10:41 AM [...] Time to Reperfusion: 9:54 Final TICI: 2b Juvenile Officer: Dr. Mitali Walter Track Fitter(s): Isak Monte Vessels: Ultrasound Guided Access of Femoral Artery Ultrasound Guided Access of Radial Artery Arterial line placement in the right radial artery Right Common Carotid Artery Angiogram: Cerebral Intracranial Catheterization Mechanical Thrombectomy with Retrievable Stent and Reperfusion Catheter Angiography Through the Existing Catheter Right Femoral Artery Angiogram Anesthesia: General Anesthesia was performed and monitored by an attending Anesthesiologist and their food trades assistants throughout the entirety of the case [...] artery demonstrated a patent vessel. A 5 tuvaluan sheath was placed in the radial artery [...] Following a series of exchanges, a 8 Wallisian sheath sheath was placed in the right femoralartery. A Guide and a 6 Wallisian Icarus AscendingumbTextádo Select Serrano 2 catheter along with a [...] system. Hemostasis was achieved using a 8 Wallisian Angio-Seal closure device. Hemostasis was immediate at [...] DATE/TIME OF EXAM: 11/05/2022 5:28 PM, LOCATION [facility] INDICATION: R50.9: Fever, unspecified fever cause [...] Report dictated by Mc Castro MD, (residential program director). Pepe Ornelas MD have personally reviewed and [...] DATE/TIME OF EXAM: 11/05/2022 9:38 AM, LOCATION [facility] INDICATION: R50.9: Fever, unspecified fever cause ADDITIONAL CLINICAL INFORMATION: Ordering Provider Reason For Exam: consolidation COMPARISON: Chest radiograph 10/29/2022. FINDINGS/IMPRESSION: Previously seen feeding tube has been removed. These no confluent consolidation, pleural effusion, or pneumothorax is noted. The cardiomediastinal silhouette is stable. No acute osseous abnormality is noted. Report dictated by Christopher Tobin MD, MD (residential program director). IHEATHER MD have personally reviewed and interpreted this examination/study. > Interpreting Provider: HEATHER FREGOSO MD on 11/05/2022 2:[address] ABDOMEN WO CONTRAST Result Date: 11/02/2022 PROCEDURE: CT ABDOMEN WO CONTRAST, DATE/TIME OF EXAM: 2022 6:47 PM, LOCATION [facility] INDICATION: Z93.1: Presence of externally removable [...] > Dictated by Tim Major MD (residential program director). I, Pepe Gonzalez MD have personallyreviewed and interpreted this examination/study. > Interpreting Provider: Pepe Gonzalez MD on 11/02/2022 1:[address] ABDOMEN PELVIS W CONTRAST Result Date: 10/31/2022 PROCEDURE: CT ABDOMEN PELVIS W CONTRAST, DATE/TIME OF EXAM: 10/31/2022 10:16 AM, LOCATION [facility] INDICATION: I33.0: Aortic valve vegetation ADDITIONAL [...] DATE/TIME OF EXAM: 10/30/2022 8:22 PM, LOCATION: [facility] HISTORY: I63.511: Right middle cerebral artery [...] frontal gyrus/frontal operculum, consistent with an evolving skotmxfm-mp-cvbxbaa infarct. 4.No significant midline shift. Similar-appearing size and configuration of the ventricles without evidence of hydrocephalus. Basal cisterns are patent. 5.No other convincing change. Partially imaged left nasoenteric tube. > Interpreting Provider: Amanda Real MD, PhD on 10/31/2022 1:26 AM [facility] ANGIO TEAM Result Date: 10/30/2022 Fluoroscopy was used for this exam in the OR. Please see the Operative report. XR CHEST 1VW PORTABLE Result Date: 10/29/2022 PROCEDURE: XR CHEST 1VW PORTABLE, DATE/TIME OF EXAM: 10/29/2022 10:29 AM, LOCATION [facility] INDICATION: R09.02: Hypoxia ADDITIONAL CLINICAL INFORMATION: Ordering Provider Reason For Exam: evaluate for hypoxia COMPARISON: Chest x-ray from 10/27/2022 FINDINGS/IMPRESSION: Enteric tube is seen coursing over the diaphragm without visualization of the distal tip. There is no focal consolidation, pleural effusion, or pneumothorax. The cardiomediastinal silhouette is normal. Report dictated by Jacques Russell DO (residential program director). I, Jacques Cole DO have personally reviewed and interpreted this examination/study. 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 Report dictated by Jacques Russell DO (residential program director). Jacques Ornelas DO have personally reviewed and interpreted this examination/study. 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 FINDINGS/IMPRESSION: Enteric tube courses below the diaphragm with the distal tip superimposing the antropyloric region. Report dictated by Martell Shetty MD (residential program director). Jacques Ornelas DO have personally reviewed and interpreted this examination/study. > Interpreting Provider: Jacques Cole DO on 10/28/2022 12:[address] HEAD WO CONTRAST Result Date: 10/28/2022 PROCEDURE: CT HEAD WO CONTRAST, DATE/TIME OF EXAM: 10/28/2022 5:28 AM, LOCATION [facility] INDICATION: Z91.89: At high risk for [...] is dictated by Kayla Stevenson MD (residential program director) 1 I, Lonnie Rae MD have personally reviewed and interpreted this examination/study. > Interpreting Provider: Lonnie Rae MD on 10/28/2022 9:15 AM XR CHEST 1VW PORTABLE Result Date: 10/27/2022 PROCEDURE: XR CHEST 1VW PORTABLE, DATE/TIME OF EXAM: 10/27/2022 10:19 AM, LOCATION [facility] INDICATION: D72.829: Leukocytosis, unspecified type ADDITIONAL CLINICAL INFORMATION: Ordering Provider Reason For Exam: any concern for pneumonia COMPARISON: Chest radiograph dated 10/25/2022. FINDINGS/IMPRESSION: Enteric tube courses below the diaphragm and out of the qistr-yo-fhwh. RUQ surgical clips are present. No focal consolidation. No pleural effusion or pneumothorax. The cardiomediastinal silhouette is normal. Report dictated by Agnes Olmos DO (residential program director). Pepe Ornelas MD have personally reviewed and interpreted this examination/study. 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 Enteric tube courses below the diaphragm and out of the lwytg-qe-abvk. There is severe left rotation of the patient in this study. There is no focal consolidation, pleural effusion, or pneumothorax. The left upper lobe pulmonary nodule noted on chest CT from same day is not visualized on this plain film. The cardiomediastinal silhouette is normal. The visible bony thorax is intact. Report dictated by Royer Stovall MD (residential program director). IAlexx have personally reviewed and interpreted this examination/study. > Interpreting Provider: Alexx Lopez on 10/26/2022 2:[address] HEAD WO CONTRAST Result Date: 10/26/2022 PROCEDURE: CT HEAD WO CONTRAST, DATE/TIME OF EXAM: 10/26/2022 4:55 AM, LOCATION [facility] INDICATION: I63.511: Right middle cerebral artery [...] is dictated by Miranda Bowen MD (residential program director) I, Oriana Suarez MD have personally reviewed and interpreted this examination/study. > Interpreting Provider: Oriana Suarez MD on 38:[address] CHEST ABDOMEN PELVIS W CONT Result Date: 10/25/2022 PROCEDURE: CT CHEST ABDOMEN PELVIS W CONT, DATE/TIME OF EXAM: 10/25/2022 12:56 PM, LOCATION [facility] INDICATION: I63.511: Right middle cerebral artery [...] > Dictated by Clarisa Cantrell MD (residential program director). I, Alexx Lopez have personally reviewed and interpreted this examination/study. > Interpreting Provider: Alexx Lopez on 10/25/2022 4:[address] HEAD WO CONTRAST Result Date: 10/25/2022 PROCEDURE: CT HEAD WO CONTRAST, DATE/TIME OF EXAM: 10/25/2022 12:56 PM, LOCATION [facility] INDICATION: I63.511: Right middle [...] is dictated by Miranda Bowen MD (residential program director) I, Joni Fabian MD have personally reviewed and interpreted this examination/study. > Interpreting Provider: Joni Fabian MD on 10/25/2022 2:[address] CARDIAC ANGIO STRUCT MORPH Result Date: 10/25/2022 PROCEDURE: CT CARDIAC ANGIO STRUCT MORPH, DATE/TIME OF EXAM: 10/23/2022 3:08 PM, LOCATION [facility] INDICATION: I63.411: Acute cerebrovascular accident (CVA) [...] DATE/TIME OF EXAM: 10/24/2022 2:04 PM, LOCATION [facility] INDICATION: R47.1: Dysarthria ADDITIONAL CLINICAL INFORMATION: Ordering Provider ReasonFor Exam: ngt placement COMPARISON: Portable KUB dated 10/23/2022 FINDINGS/IMPRESSION: The enteric tube courses below the diaphragm with tip superimposing the gastric pyloric region. Drafted by Agnes Olmos DO (residential program director). I, Vanessa Kumar MD have personally reviewed and interpreted this examination/study. > Interpreting Provider: Vanessa Kumar MD on 10/24/2022 2:17 PM MRI BRAIN WWO CONTRAST Result Date: 10/24/2022 PROCEDURE: MRI BRAIN WWO CONTRAST, DATE/TIME OF EXAM: 10/24/2022 10:56 AM, LOCATION [facility] INDICATION: I63.411: Acute cerebrovascular accident (CVA) [...] right lateral ventricle, and approximately 3-4 mm fjveb-zq-zcye midline shift at the level of the [...] right lateral ventricle, and approximately 3-4 mm wzaod-jj-equj midline shift, grossly similar to the prior. [...] Report dictated by Tim Major MD (residential program director). Jasper Ornelas MD have personally reviewed and interpreted this examination/study. 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 Endotracheal tube terminates in the midthoracic trachea. There is no focal consolidation. No pleural effusion or pneumothorax. The cardiomediastinal silhouette is normal. No acute osseous abnormality. Report dictated by Agnes Olmos DO (residential program director). Vanessa Ornelas MD have personally reviewed and [...] DATE/TIME OF EXAM: 10/23/2022 1:53 PM, LOCATION [facility] INDICATION: R47.1: Dysarthria ADDITIONAL CLINICAL INFORMATION: Ordering Provider ReasonFor Exam: NGT placement COMPARISON: Portable KUB dated 10/20/2022 FINDINGS/IMPRESSION: The enteric tube courses below the diaphragm with tip superimposing the stomach. Drafted by Agnes Olmos DO (residential program director). I, Vanessa Kumar MD have personally reviewed and interpreted this examination/study. > Interpreting Provider: Vanessa Kumar MD on 10/24/2022 8:[address] HEAD WO CONTRAST Result Date: 10/23/2022 PROCEDURE: CT HEAD WO CONTRAST, DATE/TIME OF EXAM: 10/23/2022 5:53 AM, LOCATION [facility] INDICATION: I63.511: Right middle cerebral artery [...] report is dictated by Miranda Bowen MD(residential program director) I, Jasper Sifuentes MD have personally reviewed and interpreted this examination/study. > Interpreting Provider: Jasper Sifuentes MD on 10/23/2022 9:[address] HEAD WO CONTRAST Result Date: 10/22/2022 PROCEDURE: CT HEAD WO CONTRAST, DATE/TIME OF EXAM: 10/22/2022 5:35 AM, LOCATION [facility] INDICATION: I63.511: Right middle cerebral artery [...] hemorrhage. Report dictated by Lorenzo Horta MD (resident associate). ILonnie MD have personally reviewed and interpreted this examination/study. > Interpreting Provider: Lonnie Rae MD on 10/22/2022 3:10 PM XR CHEST 1VW PORTABLE Result Date: 10/21/2022 PROCEDURE: XR CHEST 1VW PORTABLE, DATE/TIME OF EXAM: 10/21/2022 8:53 AM, LOCATION [facility] INDICATION: R53.1: Weakness ADDITIONAL CLINICAL INFORMATION: [...] dictated by Christopher Tobin MD, MD (residential program director). I, HEATHER FREGOSO MD have personally reviewed [...] DATE/TIME OF EXAM: 10/20/2022 9:13 PM, LOCATION [facility] INDICATION: I63.411: Acute cerebrovascular accident (CVA) due to embolism of right middle cerebral artery (CMS/HCC) ADDITIONAL CLINICAL INFORMATION: Ordering Provider Reason For Exam: [facility] COMPARISON: Multiple prior studies, most recently CT [...] effacement, effacement of theright lateral ventricle, and uomkn-bl-jkzi midline shift measuring up to 4 mm [...] prior. > Dictated by Bassam Jovel M.D. (resident associate) Gonzalez Ornelas MD have personally reviewed and [...] Report dictated by Royer Stovall MD (residential program director). Amanda Ornelas MD have personally reviewed and [...] DATE/TIME OF EXAM: 10/19/2022 8:16 AM, LOCATION [facility] INDICATION: Code Stroke ADDITIONAL CLINICAL INFORMATION: [...] DATE/TIME OF EXAM: 10/19/2022 8:04 AM, LOCATION [facility] INDICATION: Code Stroke ADDITIONAL CLINICAL INFORMATION: [...] prefers location for rehab Discharge Facility Information: [facility] ([address] [place] [address]) SW notified [facility] CENTER Manager VanElida to begin insurance auth Insurance authorization is required for post acute care needs Payer/Plan Subscriber Name Rel Member # Group # [facility]* CONSUELO DARBY [id number] [address] [address] Anticipated level of care at discharge: Acute Rehab Facility: Anticipated level of care provider: [facility]: Anticipated Discharge Date: 11/17/22: Orientation Level: Oriented to Person;Oriented to Place;Oriented to Time: Family Support (Name and Phone): Extended Emergency Contact Information Primary Emergency Contact: RickHi calvo Address: [address] [place] [address] [place] [address] [facility] Relation: Spouse Secondary Emergency Contact: Sandra Disla [facility] [employer] Relation: Mother Transportation at Discharge: Ambulance: READMISSION RISK SCORE is 16 at 3:39 PM 11/16/2022.: Name: Anita Richards * Jerry Leigh SLP - 11/16/2022 1:30 PM CDT [facility] Language Evaluation and Swallow Therapy Patient: Consuelo Darby Med Record Number: [id number] Date of : 1980 Age: [age] year old PPE: n95, gloves Impressions: Patient's speech and language assessed via the WAB. Patient demonstrated a mild expressive language deficit, with halting speech and slow processing. Patient completed PO trial of multiple ice chips and attempted to drink from the straw but was unable to achieve adequate suction. S[employer] utilized straw as a pipette and patient [...] to demonstrate gains in problem solving/abstract reasoning. Chcf Goals: Patient to be independent/baseline with speech/language/cognitive/swallowing to beable to safely discharge to prior level of care. If patient is discharged from the facility, this note serves as a discharge note if further speech therapy visits did not occur. Jerry Valle M.A., [facility]-S[employer] [employer] Speech Language Pathologist [phone] * Shania Troy, OT - 11/16/2022 12:01 PM CDT [facility] Physical Medicine and Rehabilitation Occupational Therapy Progress Note Patient: Consuelo Darby Med Record Number: [id number] Date of : 1980 Age: [age] year old PPE worn by staff: gloves;mask - surgical elastic knitter: Cheli Recommendations: Discharge OT Discharge Recommendations: Patient [...] Appearance: Pt in bed upon arrival in [facility]. LDA: PIV, PEG, puentes catheter Mental Status/Cognition: [...] ACTIVITY TOLERANCE: Patient's activity tolerance: fair Modified [place]: Current Modified [place] Score: 5 AM-PAC 6 Clicks Daily Activity [...] with good endurance and with minimal pain Special Collections Librarian Goal(s): Patient to discharge to appropriate next [...] within reach, with family in room, with RNTasha aware, with therapy cues visible on white [...] 16 107/52 Recent Labs Component Name 11/16/2221611/15/2221111/14/22 0239 NA 139 137 140 CL 104 [...] Troy OT - 11/15/2022 10:52 AM CDT [facility] Department of Physical Medicine & Rehabilitation Progress Note Patient: Consuelo Darby Med Record Number: [id number] Date of : 1980 Age: [age] year old 11/15/22 1146 Missed Visit Missed Visit Procedure Off Floor Pt off the floor for LP at time of OT attempt. OT will continue to follow and attempt treatment session at a later time/date as appropriate. * Rosa Vegas, PT - 11/15/2022 10:40 AM CDT [facility] Department of Physical Medicine & Rehabilitation Progress Note Patient: Consuelo Darby Med Record Number: [id number] Date of : 1980 Age: [age] year [...] results for input(s): MG in the last 60905 hours. Recent Labs Component Name 11/15/2221111/14/2223811/13/22209 PHOS 3.0 3.5 3.9 Recent Labs Component Name 11/15/2221111/14/2223811/13/22209 PT 14.3 15.9* 17.7* INR 1.1 1.3 1.5 PTT 28.2 45.9* 47.9* No results for input(s): A1C in the last 06071 hours. Recent Labs Component Name 10/20/22 0302 06/15/22 0757 CHOL 173 204* HDL 42 37* LDLCALC 91 117* TRIG 201* 251* Recent Labs Component Name 09/04/23 0210 TSH 5.706* Recent Labs Component Name [...] > Dictated by Miranda Bowen MD (residential program director). > Dictated by Miranda Bowen (Sheet Combining Operator) 11/14/2022 9:18 AM IHEATHER MD have personally reviewed and interpreted this examination/study. > Interpreting Provider: HEATHER FREGOSO MD on 11/14/2022 9:54 AM XR CHEST 1VW PORTABLE Result Date: 11/13/2022 PROCEDURE: XR CHEST 1VW PORTABLE, DATE/TIME OF EXAM: 11/12/2022 8:45 PM, LOCATION [facility] INDICATION: R50.9: Fever, unspecified fever cause [...] Report dictated by Agnes Olmos DO (residential program director). I, Pepe Gonzalez MD have p ersonally reviewed and interpreted this examination/study. > Interpreting Provider: Pepe Gonzalez MD on 11/13/2022 11:59 AM MRI BRAIN WWO CONTRAST Result Date: 11/10/2022 PROCEDURE: MRI BRAIN WWO CONTRAST, DATE/TIME OF EXAM: 11/09/2022 11:51 PM, LOCATION [facility] INDICATION: R50.9: Fever, unspecified fever cause [...] of the right lateral ventricle and the aoktg-ec-mxwf midline shift. Extensive susceptibility artifacts along the [...] DATE/TIME OF EXAM: 11/07/2022 5:25 PM, LOCATION [facility] INDICATION: R50.9: Fever, unspecified fever cause [...] > Dictated by Tim Major MD (residential program director). I, Alexx Renemily have personally reviewed and [...] Time to Reperfusion: 9:54 Final TICI: 2b Juvenile Officer: Dr. Mitali Walter Track Fitter(s): Isak Monte Vessels: Ultrasound Guided Access of Femoral Artery Ultrasound Guided Access of Radial Artery Arterial line placement in the right radial artery Right Common Carotid Artery Angiogram: Cerebral Intracranial Catheterization Mechanical Thrombectomy with Retrievable Stent and Reperfusion Catheter Angiography Through the Existing Catheter Right Femoral Artery Angiogram Anesthesia: General Anesthesia was performed and monitored by an attending Anesthesiologist and their food trades assistants throughout the entirety of the case [...] artery demonstrated a patent vessel. A 5 tuvaluan sheath was placed in the radial artery [...] Following a series of exchanges, a 8 Wallisian sheath sheath was placed in the right femoralartery. A Guide and a 6 Wallisian Penumbra Select Serrano 2 catheter along with [...] system. Hemostasis was achieved using a 8 Wallisian Angio-Seal closure device. Hemostasis was immediate at the end of the closure procedure. The right dorsalis pedis pulse was palpable at the end of the closure procedure. The patient tolerated the procedure without immediate complications. She was returned to the recovery area in hemodynamically stable condition. The estimated blood loss was less than 10 mL. A total of 14.6 minutes of fluoroscopic time and60 ml of Isovue-300 contrast were utilized for [...] the mechanical thrombectomy was performed a TICI2b revascularizationon the MCA territory was visualized. Impression: 1. [...] DATE/TIME OF EXAM: 11/05/2022 5:28 PM, LOCATION [facility] INDICATION: R50.9: Fever, unspecified fever cause [...] Report dictated by Mc Castro MD, (residential program director). I, Pepe Gonzalez MD have personally reviewed [...] DATE/TIME OF EXAM: 11/05/2022 9:38 AM, LOCATION [facility] INDICATION: R50.9: Fever, unspecified fever cause ADDITIONAL CLINICAL INFORMATION: Ordering Provider Reason For Exam: consolidation COMPARISON: Chest radiograph 10/29/2022. FINDINGS/IMPRESSION: Previously seen feeding tube has been removed. These no confluent consolidation, pleural effusion, or pneumothorax is noted. The cardiomediastinal silhouette is stable. No acute osseous abnormality is noted. Report dictated by Christopher Tobin MD, MD (residential program director). I, HEATHER FREGOSO MD have personally reviewed and interpreted this examination/study. > Interpreting Provider: HEATHER FREGOSO MD on 11/05/2022 2:[address] ABDOMEN WO CONTRAST Result Date: 11/02/2022 PROCEDURE: CT ABDOMEN WO CONTRAST, DATE/TIME OF EXAM: 2022 6:47 PM, LOCATION [facility] INDICATION: Z93.1: Presence of externally removable [...] > Dictated by Tim Major MD (residential program director). I, Pepe Gonzalez MD have personallyreviewed and interpreted this examination/study. > Interpreting Provider: Pepe Gonzalez MD on 11/02/2022 1:[address] ABDOMEN PELVIS W CONTRAST Result Date: 10/31/2022 PROCEDURE: CT ABDOMEN PELVIS W CONTRAST, DATE/TIME OF EXAM: 10/31/2022 10:16 AM, LOCATION [facility] INDICATION: I33.0: Aortic valve vegetation ADDITIONAL [...] DATE/TIME OF EXAM: 10/30/2022 8:22 PM, LOCATION: [facility] HISTORY: I63.511: Right middle cerebral artery [...] frontal gyrus/frontal operculum, consistent with an evolving fdcgcuxs-uq-qrkdjkz infarct. 4.No significant midline shift. Similar-appearing size and configuration of the ventricles without evidence of hydrocephalus. Basal cisterns are patent. 5.No other convincing change. Partially imaged left nasoenteric tube. > Interpreting Provider: Amanda Real MD, PhD on 10/31/2022 1:26 AM [facility] ANGIO TEAM Result Date: 10/30/2022 Fluoroscopy was used for this exam in the OR. Please see the Operative report. XR CHEST 1VW PORTABLE Result Date: 10/29/2022 PROCEDURE: XR CHEST 1VW PORTABLE, DATE/TIME OF EXAM: 10/29/2022 10:29 AM, LOCATION [facility] INDICATION: R09.02: Hypoxia ADDITIONAL CLINICAL INFORMATION: Ordering Provider Reason For Exam: evaluate for hypoxia COMPARISON: Chest x-ray from 10/27/2022 FINDINGS/IMPRESSION: Enteric tube is seen coursing over the diaphragm without visualization of the distal tip. There is no focal consolidation, pleural effusion, or pneumothorax. The cardiomediastinal silhouette is normal. Report dictated by Jacques Russell DO (residential program director). Jacques Ornelas DO have personally reviewed and interpreted this examination/study. 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 Report dictated by Jacques Russell DO (residential program director). Jacques Ornelas DO have personally reviewed and interpreted this examination/study. 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 FINDINGS/IMPRESSION: Enteric tube courses below the diaphragm with the distal tip superimposing the antropyloric region. Report dictated by Martell Shetty MD (residential program director). Jacques Ornelas DO have personally reviewed and interpreted this examination/study. > Interpreting Provider: Jacques Cole, on 10/28/2022 12:[address] HEAD WO CONTRAST Result Date: 10/28/2022 PROCEDURE: CT HEAD WO CONTRAST, DATE/TIME OF EXAM: 10/28/2022 5:28 AM, LOCATION [facility] INDICATION: Z91.89: At high risk for [...] is dictated by Kayla Stevenson MD (residential program director) 1 I, Lonnie Rae MD have personally reviewed and interpreted this examination/study. > Interpreting Provider: Lonnie Rae MD on 10/28/2022 9:15 AM XR CHEST 1VW PORTABLE Result Date: 10/27/2022 PROCEDURE: XR CHEST 1VW PORTABLE, DATE/TIME OF EXAM: 10/27/2022 10:19 AM, LOCATION [facility] INDICATION: D72.829: Leukocytosis, unspecified type ADDITIONAL CLINICAL INFORMATION: Ordering Provider Reason For Exam: any concern for pneumonia COMPARISON: Chest radiograph dated 10/25/2022. FINDINGS/IMPRESSION: Enteric tube courses below the diaphragm and out of the ngqtu-hs-pnyb. RUQ surgical clips are present. No focal consolidation. No pleural effusion or pneumothorax. The cardiomediastinal silhouette is normal. Report dictated by Agnes Olmos DO (residential program director). I, Pepe Gonzalez MD have personally reviewed and interpreted this examination/study. > Interpreting Provider: Pepe Gonzalez MD on 10/27/2022 2:[address] HEAD WO CONTRAST Result Date: 10/27/2022 PROCEDURE: CT HEAD WO CONTRAST, DATE/TIME OF EXAM: 10/27/2022 5:54 AM, LOCATION [facility] INDICATION: I63.511: Right middle cerebral artery [...] DATE/TIME OF EXAM: 10/25/2022 9:41 AM, LOCATION [facility] INDICATION: I63.511: Right middle cerebral artery stroke ([facility]/HCC) ADDITIONAL CLINICAL INFORMATION: Ordering Provider Reason For Exam: Atlectasis/mucus plugging Comparison: Chest x-ray from10/23/2022, and CT chest, abdomen, pelvis from same day FINDINGS/IMPRESSION: Interval removal of theendotracheal tube. Enteric tube courses below the diaphragm and out of the agyhq-zs-qwne. There is severe left rotation of the patient in this study. There is no focal consolidation, pleural effusion, or pneumothorax. The left upper lobe pulmonary nodule noted on chest CT from same day is not visualized on this plain film. The cardiomediastinal silhouette is normal. The visible bony thorax is intact. Report dictated by Royer Stovall MD (residential program director). I, Alexx Lopez have personally reviewed and interpreted this examination/study. > Interpreting Provider: Alexx Lopez on 10/26/2022 2:[address] HEAD WO CONTRAST Result Date: 10/26/2022 PROCEDURE: CT HEAD WO CONTRAST, DATE/TIME OF EXAM: 10/26/2022 4:55 AM, LOCATION [facility] INDICATION: I63.511: Right middle cerebral artery stroke ([facility]/HCC) ADDITIONAL CLINICAL INFORMATION: Ordering Provider Reason [...] is dictated by Miranda Bowen MD (residential program director) I, Oriana Suarez MD have personally reviewed and interpreted this examination/study. > Interpreting Provider: Oriana Suarez MD on 38:[address] CHEST ABDOMEN PELVIS W CONT Result Date: 10/25/2022 PROCEDURE: CT CHEST ABDOMEN PELVIS W CONT, DATE/TIME OF EXAM: 10/25/2022 12:56 PM, LOCATION [facility] INDICATION: I63.511: Right middle cerebral artery [...] > Dictated by Clarisa Cantrell MD (residential program director). I, Alexx Lopez have personally reviewed and interpreted this examination/study. > Interpreting Provider: Alexx Lopez on 10/25/2022 4:[address] HEAD WO CONTRAST Result Date: 10/25/2022 PROCEDURE: CT HEAD WO CONTRAST, DATE/TIME OF EXAM: 10/25/2022 12:56 PM, LOCATION [facility] INDICATION: I63.511: Right middle [...] is dictated by Miranda Bowen MD (residential program director) I, Joni Fabian MD have personally reviewed and interpreted this examination/study. > Interpreting Provider: Joni Fabian MD on 10/25/2022 2:[address] CARDIAC ANGIO STRUCT MORPH Result Date: 10/25/2022 PROCEDURE: CT CARDIAC ANGIO STRUCT MORPH, DATE/TIME OF EXAM: 10/23/2022 3:08 PM, LOCATION [facility] INDICATION: I63.411: Acute cerebrovascular accident (CVA) [...] DATE/TIME OF EXAM: 10/24/2022 2:04 PM, LOCATION [facility] INDICATION: R47.1: Dysarthria ADDITIONAL CLINICAL INFORMATION: Ordering Provider ReasonFor Exam: ngt placement COMPARISON: Portable KUB dated 10/23/2022 FINDINGS/IMPRESSION: The enteric tube courses below the diaphragm with tip superimposing the gastric pyloric region. Drafted by Agnes Olmos DO (residential program director). I, Vanessa Kumar MD have personally reviewed and interpreted this examination/study. > Interpreting Provider: Vanessa Kumar MD on 10/24/2022 2:17 PM MRI BRAIN WWO CONTRAST Result Date: 10/24/2022 PROCEDURE: MRI BRAIN WWO CONTRAST, DATE/TIME OF EXAM: 10/24/2022 10:56 AM, LOCATION [facility] INDICATION: I63.411: Acute cerebrovascular accident (CVA) [...] right lateral ventricle, and approximately 3-4 mm siisy-aj-ayst midline shift at the level of the [...] right lateral ventricle, and approximately 3-4 mm mrvja-el-ixlm midline shift, grossly similar to the prior. [...] Report dictated by Tim Major MD (residential program director). I, Jasper Sifuentes MD have personally reviewed and interpreted this examination/study. 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 Endotracheal tube terminates in the midthoracic trachea. There is no focal consolidation. No pleural effusion or pneumothorax. The cardiomediastinal silhouette is normal. No acute osseous abnormality. Report dictated by Agnes Olmos DO (residential program director). Vanessa Ornelas MD have personally reviewed and [...] DATE/TIME OF EXAM: 10/23/2022 1:53 PM, LOCATION [facility] INDICATION: R47.1: Dysarthria ADDITIONAL CLINICAL INFORMATION: Ordering Provider ReasonFor Exam: NGT placement COMPARISON: Portable KUB dated 10/20/2022 FINDINGS/IMPRESSION: The enteric tube courses below the diaphragm with tip superimposing the stomach. Drafted by Agnes Olmos DO (residential program director). Vanessa Ornelas MD have personally reviewed and interpreted this examination/study. > Interpreting Provider: Vanessa Kumar MD on 10/24/2022 8:[address] HEAD WO CONTRAST Result Date: 10/23/2022 PROCEDURE: CT HEAD WO CONTRAST, DATE/TIME OF EXAM: 10/23/2022 5:53 AM, LOCATION [facility] INDICATION: I63.511: Right middle cerebral artery [...] report is dictated by Miranda Bowen MD(residential program director) I, Jasper Sifuentes MD have personally reviewed and interpreted this examination/study. > Interpreting Provider: Jasper Sifuentes MD on 10/23/2022 9:[address] HEAD WO CONTRAST Result Date: 10/22/2022 PROCEDURE: CT HEAD WO CONTRAST, DATE/TIME OF EXAM: 10/22/2022 5:35 AM, LOCATION [facility] INDICATION: I63.511: Right middle cerebral artery [...] hemorrhage. Report dictated by Lorenzo Horta MD (resident associate). Lonnie Ornelas MD have personally reviewed and interpreted this examination/study. > Interpreting Provider: Lonnie Rae MD on 10/22/2022 3:10 PM XR CHEST 1VW PORTABLE Result Date: 10/21/2022 PROCEDURE: XR CHEST 1VW PORTABLE, DATE/TIME OF EXAM: 10/21/2022 8:53 AM, LOCATION [facility] INDICATION: R53.1: Weakness ADDITIONAL CLINICAL INFORMATION: [...] dictated by Christopher Tobin MD, MD (residential program director). HEATHER Ornelas MD have personally reviewed and [...] DATE/TIME OF EXAM: 10/20/2022 9:13 PM, LOCATION [facility] INDICATION: I63.411: Acute cerebrovascular accident (CVA) due to embolism of right middle cerebral artery (CMS/HCC) ADDITIONAL CLINICAL INFORMATION: Ordering Provider Reason For Exam: [facility] COMPARISON: Multiple prior studies, most recently CT [...] effacement, effacement of theright lateral ventricle, and bpilo-si-oflq midline shift measuring up to 4 mm [...] prior. > Dictated by Bassam Jovel M.D. (resident associate) I, Gonzalez Velasco MD have personally reviewed [...] Report dictated by Royer Stovall MD (residential program director). I, Amanda Prieto MD have personally reviewed [...] DATE/TIME OF EXAM: 10/19/2022 8:16 AM, LOCATION [facility] INDICATION: Code Stroke ADDITIONAL CLINICAL INFORMATION: [...] DATE/TIME OF EXAM: 10/19/2022 8:04 AM, LOCATION [facility] INDICATION: Code Stroke ADDITIONAL CLINICAL INFORMATION: [...] Hepatocellular injury (POA: No) Assessment Consuelo R Rickdaniel??is a 41 year old??female who??presented on 10/19 [...] Attending. Karishma Ojeda MD Neurology Resident * Rahda Covarrubias RN - 11/14/2022 5:22 PM CDT [...] Troy OT - 11/14/2022 3:13 PM CDT [facility] Physical Medicine and Rehabilitation Occupational Therapy Progress Note Patient: Consuelo Darby Med Record Number: [id number] Date of : 1980 Age: [age] year old PPE worn by staff: gloves;mask - surgical elastic knitter: Cheli Reevaluation not indicated this date s/p [...] Appearance: Pt in bed upon arrival in [facility], finishing with PT. LDA: PIV, PEG, puentes [...] TOLERANCE: Patient's activity tolerance: fair minus Modified [place]: Current Modified [place] Score: 5 AM-PAC 6 Clicks Daily Activity [...] with good endurance and with minimal pain Chcf Goal(s): Patient to discharge to appropriate next [...] Leigh SLP - 11/14/2022 3:01 PM CDT [facility] Physical Medicine and Rehabilitation Swallow and Speech Treatment Patient: Consuelo Darby Med Record Number: [id number] Date of : 1980 Age: [age] year [...] Impression - Pharyngeal: Moderate Treatment/Education/Interventions: While performing SENIOR LITIGATION [place], Patient and sister was instructed in: goals [...] precautions., Patient will follow recommended swallowing strategies. Special Collections Librarian Goal (s): Patient to be independent/baseline with functional mobility and self care and be able to safely discharge to prior level of care. Jerry Valle M.A., CCC-SENIOR L[employer]IGATION [employer] Speech Language Pathologist [phone] * Solomon Brush DO - 11/14/2022 1:34 PM CDT [facility] MEDICINE CONSULTATION Patient: Consuelo Darby Age: [age] year old Date of : 1980 Date of Admission: 10/19/2022 Date: 11/14/2022 Reason for consult: elevated liver enzymes Consult team: Neuro stroke HISTORY: I saw . Consuelo Darby in consultation at [facility] on 11/14/2022 for evaluation of her [...] 47.9* 102.7* BMP: Recent Labs Component Name 11/14/22 02311/13/22 0210 11/12/22 0532 NA 140 138 136 [...] attending physician. Solomon Brush, IM Resident PGY-1 [facility] Associated attestation - Cory Villarreal MD [...] Pain affecting intake: No Estimated Needs: KCAL: [id number] (30-35 kcal/kg IBW) Protein (g): 82g (1.5 [...] Vegas, PT - 11/14/2022 10:00 AM CDT [facility] Physical Medicine and Rehabilitation Physical Therapy Progress Note Patient: Consuelo Darby Med Record Number: [id number] Date of : 1980 Age: [age] year [...] monitoring of vitals Modified Maryann: Current Modified [place] Score: 5 AM-PAC 6 Clicks Mobility Raw [...] EOB x10 minutes with minimal assist ?? Special Collections Librarian Goal(s): Patient to discharge to appropriate next [...] results for input(s): MG in the last 51848 hours. Recent Labs Component Name 11/14/22 0239 11/13/22 0210 11/12/22 0532 PHOS 3.5 3.9 2.5* Recent Labs Component Name 11/14/22 0239 11/13/22 0210 11/12/22 0532 PT 15.9* 17.7* 22.1* INR 1.3 1.5 2.0 PTT 45.9* 47.9* 102.7* No results for input(s): A1C in the last 12230 hours. Recent Labs Component Name 10/20/22 0302 06/15/22 0757 CHOL 173 204* HDL 42 37* LDLCALC 91 117* TRIG 201* 251* Recent Labs Component Name 11/13/22 021 TSH 5.706* Recent Labs Component Name 11/13/22 1534 CKTOTAL 57 XR CHEST 1VW PORTABLE Result Date: 11/13/2022 PROCEDURE: XR CHEST 1VW PORTABLE, DATE/TIME OF EXAM: 11/12/2022 8:45 PM, LOCATION [facility] INDICATION: R50.9: Fever, unspecified fever cause [...] Report dictated by Agnes Olmos DO (residential program director). I, Pepe Gonzalez MD have p ersonally reviewed and interpreted this examination/study. > Interpreting Provider: Pepe Gonzalez MD on 11/13/2022 11:59 AM MRI BRAIN WWO CONTRAST Result Date: 11/10/2022 PROCEDURE: MRI BRAIN WWO CONTRAST, DATE/TIME OF EXAM: 11/09/2022 11:51 PM, LOCATION [facility] INDICATION: R50.9: Fever, unspecified fever cause [...] of the right lateral ventricle and the rizkr-wz-hgns midline shift. Extensive susceptibility artifacts along the [...] DATE/TIME OF EXAM: 11/07/2022 5:25 PM, LOCATION [facility] INDICATION: R50.9: Fever, unspecified fever cause [...] > Dictated by Tim Major MD (residential program director). I, Alexx Lopez have personally reviewed and [...] Time to Reperfusion: 9:54 Final TICI: 2b Juvenile Officer: Dr. Mitali Walter Track Fitter(s): Isak Monte Vessels: Ultrasound Guided Access of Femoral Artery Ultrasound Guided Access of Radial Artery Arterial line placement in the right radial artery Right Common Carotid Artery Angiogram: Cerebral Intracranial Catheterization Mechanical Thrombectomy with Retrievable Stent and Reperfusion Catheter Angiography Through the Existing Catheter Right Femoral Artery Angiogram Anesthesia: General Anesthesia was performed and monitored by an attending Anesthesiologist and their food trades assistants throughout the entirety of the case [...] artery demonstrated a patent vessel. A 5 tuvaluan sheath was placed in the radial artery [...] Following a series of exchanges, a 8 Wallisian sheath sheath was placed in the right femoralartery. A Guide and a 6 Wallisian Icarus AscendingumbTextádo Select Serrano 2 catheter along with a [...] system. Hemostasis was achieved using a 8 Wallisian Angio-Seal closure device. Hemostasis was immediate at [...] DATE/TIME OF EXAM: 11/05/2022 5:28 PM, LOCATION [facility] INDICATION: R50.9: Fever, unspecified fever cause [...] Report dictated by Mc Castro MD, (residential program director). Pepe Ornelas MD have personally reviewed and [...] DATE/TIME OF EXAM: 11/05/2022 9:38 AM, LOCATION [facility] INDICATION: R50.9: Fever, unspecified fever cause ADDITIONAL CLINICAL INFORMATION: Ordering Provider Reason For Exam: consolidation COMPARISON: Chest radiograph 10/29/2022. FINDINGS/IMPRESSION: Previously seen feeding tube has been removed. These no confluent consolidation, pleural effusion, or pneumothorax is noted. The cardiomediastinal silhouette is stable. No acute osseous abnormality is noted. Report dictated by Christopher Tobin MD, (residential program director). IHEATHER MD have personally reviewed and interpreted this examination/study. > Interpreting Provider: HEATHER FREGOSO MD on 11/05/2022 2:[address] ABDOMEN WO CONTRAST Result Date: 11/02/2022 PROCEDURE: CT ABDOMEN WO CONTRAST, DATE/TIME OF EXAM: 2022 6:47 PM, LOCATION [facility] INDICATION: Z93.1: Presence of externally removable [...] > Dictated by Tim Major MD (residential program director). I, Pepe Gonzalez MD have personallyreviewed and interpreted this examination/study. > Interpreting Provider: Pepe Gonzalez MD on 11/02/2022 1:[address] ABDOMEN PELVIS W CONTRAST Result Date: 10/31/2022 PROCEDURE: CT ABDOMEN PELVIS W CONTRAST, DATE/TIME OF EXAM: 10/31/2022 10:16 AM, LOCATION [facility] INDICATION: I33.0: Aortic valve vegetation ADDITIONAL [...] DATE/TIME OF EXAM: 10/30/2022 8:22 PM, LOCATION: [facility] HISTORY: I63.511: Right middle cerebral artery [...] frontal gyrus/frontal operculum, consistent with an evolving xdepxhft-ax-qqlmgqo infarct. 4.No significant midline shift. Similar-appearing size and configuration of the ventricles without evidence of hydrocephalus. Basal cisterns are patent. 5.No other convincing change. Partially imaged left nasoenteric tube. > Interpreting Provider: Amanda Real MD, PhD on 10/31/2022 1:26 AM [facility] ANGIO TEAM Result Date: 10/30/2022 Fluoroscopy was used for this exam in the OR. Please see the Operative report. XR CHEST 1VW PORTABLE Result Date: 10/29/2022 PROCEDURE: XR CHEST 1VW PORTABLE, DATE/TIME OF EXAM: 10/29/2022 10:29 AM, LOCATION [facility] INDICATION: R09.02: Hypoxia ADDITIONAL CLINICAL INFORMATION: Ordering Provider Reason For Exam: evaluate for hypoxia COMPARISON: Chest x-ray from 10/27/2022 FINDINGS/IMPRESSION: Enteric tube is seen coursing over the diaphragm without visualization of the distal tip. There is no focal consolidation, pleural effusion, or pneumothorax. The cardiomediastinal silhouette is normal. Report dictated by Jacques Russell DO (residential program director). I, Jacques Cole DO have personally reviewed and interpreted this examination/study. 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 Report dictated by Jacques Russell DO (residential program director). Jacques Ornelas DO have personally reviewed and interpreted this examination/study. 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 FINDINGS/IMPRESSION: Enteric tube courses below the diaphragm with the distal tip superimposing the antropyloric region. Report dictated by Martell Shetty MD (residential program director). Jacques Ornelas DO have personally reviewed and interpreted this examination/study. > Interpreting Provider: Jacques Cole DO on 10/28/2022 12:[address] HEAD WO CONTRAST Result Date: 10/28/2022 PROCEDURE: CT HEAD WO CONTRAST, DATE/TIME OF EXAM: 10/28/2022 5:28 AM, LOCATION [facility] INDICATION: Z91.89: At high risk for [...] is dictated by Kayla Stevenson MD (residential program director) 1 I, Lonnie Rae MD have personally reviewed and interpreted this examination/study. > Interpreting Provider: Lonnie Rae MD on 10/28/2022 9:15 AM XR CHEST 1VW PORTABLE Result Date: 10/27/2022 PROCEDURE: XR CHEST 1VW PORTABLE, DATE/TIME OF EXAM: 10/27/2022 10:19 AM, LOCATION [facility] INDICATION: D72.829: Leukocytosis, unspecified type ADDITIONAL CLINICAL INFORMATION: Ordering Provider Reason For Exam: any concern for pneumonia COMPARISON: Chest radiograph dated 10/25/2022. FINDINGS/IMPRESSION: Enteric tube courses below the diaphragm and out of the rfjly-bf-abzu. RUQ surgical clips are present. No focal consolidation. No pleural effusion or pneumothorax. The cardiomediastinal silhouette is normal. Report dictated by Agnes Olmos DO (residential program director). IPepe MD have personally reviewed and interpreted this examination/study. 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 Enteric tube courses below the diaphragm and out of the dclyf-zd-fofe. There is severe left rotation of the patient in this study. There is no focal consolidation, pleural effusion, or pneumothorax. The left upper lobe pulmonary nodule noted on chest CT from same day is not visualized on this plain film. The cardiomediastinal silhouette is normal. The visible bony thorax is intact. Report dictated by Royer Stovall MD (residential program director). I, Alexx Lopez have personally reviewed and interpreted this examination/study. 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 The visualized portions of the [...] is dictated by Miranda Bowen MD (residential program director) I, Oriana Suarez MD have personally reviewed and interpreted this examination/study. > Interpreting Provider: Oriana Suarez MD on 38:[address] CHEST ABDOMEN PELVIS W CONT Result Date: 10/25/2022 PROCEDURE: CT CHEST ABDOMEN PELVIS W CONT, DATE/TIME OF EXAM: 10/25/2022 12:56 PM, LOCATION [facility] INDICATION: I63.511: Right middle cerebral artery [...] > Dictated by Clarisa Cantrell MD (residential program director). I, Alexx Lopez have personally reviewed and interpreted this examination/study. > Interpreting Provider: Alexx Lopez on 10/25/2022 4:[address] HEAD WO CONTRAST Result Date: 10/25/2022 PROCEDURE: CT HEAD WO CONTRAST, DATE/TIME OF EXAM: 10/25/2022 12:56 PM, LOCATION [facility] INDICATION: I63.511: Right middle [...] is dictated by Miranda Bowen MD (residential program director) I, Joni Fabian MD have personally reviewed and interpreted this examination/study. > Interpreting Provider: Joni Fabian MD on 10/25/2022 2:[address] CARDIAC ANGIO STRUCT MORPH Result Date: 10/25/2022 PROCEDURE: CT CARDIAC ANGIO STRUCT MORPH, DATE/TIME OF EXAM: 10/23/2022 3:08 PM, LOCATION [facility] INDICATION: I63.411: Acute cerebrovascular accident (CVA) [...] DATE/TIME OF EXAM: 10/24/2022 2:04 PM, LOCATION [facility] INDICATION: R47.1: Dysarthria ADDITIONAL CLINICAL INFORMATION: Ordering Provider ReasonFor Exam: ngt placement COMPARISON: Portable KUB dated 10/23/2022 FINDINGS/IMPRESSION: The enteric tube courses below the diaphragm with tip superimposing the gastric pyloric region. Drafted by Agnes Olmos DO (residential program director). I, Vanessa Kumar MD have personally reviewed and interpreted this examination/study. > Interpreting Provider: Vanessa Kumar MD on 10/24/2022 2:17 PM MRI BRAIN WWO CONTRAST Result Date: 10/24/2022 PROCEDURE: MRI BRAIN WWO CONTRAST, DATE/TIME OF EXAM: 10/24/2022 10:56 AM, LOCATION [facility] INDICATION: I63.411: Acute cerebrovascular accident (CVA) [...] right lateral ventricle, and approximately 3-4 mm lwhkr-ml-vovk midline shift at the level of the [...] right lateral ventricle, and approximately 3-4 mm hjhot-mp-aocu midline shift, grossly similar to the prior. [...] Report dictated by Tim Major MD (residential program director). IJasper MD have personally reviewed and interpreted this examination/study. 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 Endotracheal tube terminates in the midthoracic trachea. There is no focal consolidation. No pleural effusion or pneumothorax. The cardiomediastinal silhouette is normal. No acute osseous abnormality. Report dictated by Agnes Olmos DO (residential program director). Vanessa Ornelas MD have personally reviewed and [...] DATE/TIME OF EXAM: 10/23/2022 1:53 PM, LOCATION [facility] INDICATION: R47.1: Dysarthria ADDITIONAL CLINICAL INFORMATION: Ordering Provider ReasonFor Exam: NGT placement COMPARISON: Portable KUB dated 10/20/2022 FINDINGS/IMPRESSION: The enteric tube courses below the diaphragm with tip superimposing the stomach. Drafted by Agnes Olmos DO (residential program director). I, Vanessa Kumar MD have personally reviewed and interpreted this examination/study. > Interpreting Provider: Vanessa Kumar MD on 10/24/2022 8:[address] HEAD WO CONTRAST Result Date: 10/23/2022 PROCEDURE: CT HEAD WO CONTRAST, DATE/TIME OF EXAM: 10/23/2022 5:53 AM, LOCATION [facility] INDICATION: I63.511: Right middle cerebral artery [...] extra-axial fluid collections are identified. The ventricular morpholo gy is stable compared to prior exams. The [...] report is dictated by Miranda Bowen MD(residential program director) I, Jasper Sifuentes MD have personally reviewed and interpreted this examination/study. > Interpreting Provider: Jasper Sifuentes MD on 10/23/2022 9:[address] HEAD WO CONTRAST Result Date: 10/22/2022 PROCEDURE: CT HEAD WO CONTRAST, DATE/TIME OF EXAM: 10/22/2022 5:35 AM, LOCATION [facility] INDICATION: I63.511: Right middle cerebral artery [...] hemorrhage. Report dictated by Lorenzo Horta MD (resident associate). ILonnie MD have personally reviewed and interpreted this examination/study. > Interpreting Provider: Lonnie Rae MD on 10/22/2022 3:10 PM XR CHEST 1VW PORTABLE Result Date: 10/21/2022 PROCEDURE: XR CHEST 1VW PORTABLE, DATE/TIME OF EXAM: 10/21/2022 8:53 AM, LOCATION [facility] INDICATION: R53.1: Weakness ADDITIONAL CLINICAL INFORMATION: [...] dictated by Christopher Tobin MD, MD (residential program director). I, HEATHER FREGOSO MD have personally reviewed [...] DATE/TIME OF EXAM: 10/20/2022 9:13 PM, LOCATION [facility] INDICATION: I63.411: Acute cerebrovascular accident (CVA) due to embolism of right middle cerebral artery (CMS/HCC) ADDITIONAL CLINICAL INFORMATION: Ordering Provider Reason For Exam: [facility] COMPARISON: Multiple prior studies, most recently CT [...] effacement, effacement of theright lateral ventricle, and lsecn-me-cdfh midline shift measuring up to 4 mm [...] prior. > Dictated by Bassam Jovel M.D. (resident associate) Gonzalez Ornelas MD have personally reviewed and [...] Report dictated by Royer Stovall MD (residential program director). Amanda Ornelas MD have personally reviewed and [...] DATE/TIME OF EXAM: 10/19/2022 8:16 AM, LOCATION [facility] INDICATION: Code Stroke ADDITIONAL CLINICAL INFORMATION: [...] DATE/TIME OF EXAM: 10/19/2022 8:04 AM, LOCATION [facility] INDICATION: Code Stroke ADDITIONAL CLINICAL INFORMATION: Ordering Provider Reason For Exam: Technologist Note: Additional: EXAMINATION: Computed tomography (CT) of the head without contrast TECHNIQUE: CT of the head was performed without contrast according to standard protocol. COMPARISON: No prior study is available for comparison at the time of this dictation. FINDINGS: There is suggestionof subtle hypoattenuation with loss of scott-white matter [...] or midline shift is seen. The scott-white ma tter differentiation is normal. The visualized portions of [...] Parks MD - 11/14/2022 8:55 AM CDT [facility] Infectious Diseases Progress Note Date of Admission: 10/19/2022 7:53 AM Length of Stay: Room: [facility] Attending: Good Antunez MD Subjective Since last seen by us, she remains afebrile, hemodynamically stable, on room air. No acute events overnight, no acute distress, no new complaints. Unchanged mental status. Review of Systems Unable to perform ROS: Mental status change Antimicrobial History Current Antibiotics Meropenem 11/12 - present Doxycycline 11/05 - present Prior Antibiotics At [facility] Cefazolin 10/20 Vancomycin 10/20; 10/25 - Ceftriaxone [...] DVT At this time most concerning for -RELATIONSHIP EXECUTIVE infection, MRI cannot rule out cerebritis/meningitis, needs [...] Liam Parks MD (PGY-5) Infectious Diseases Fellow [facility] Pager: [phone] ID Clinic Associated attestation - Gilberto Pastrana MD - 11/14/2022 10:00 PM CDT I have reviewed the record and independently examined the patient. I agree with the findings and plan of care as documented by the loader malt house. 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 Labs: Recent Labs Component Name 11/13/2220911/12/2253111/11/22170210/23/22 0129 10/22/22 0153 WBC 2.7* 4.8 5.0 - - RBC 3.36* 3.27* 3.41* - - HGB 9.8* 9.4* 9.9* - - HCT 30.8* 30.2* 31.9* - - PLT - - - - 199 - = values in this interval not displayed. Recent Labs Component Name 11/13/2220911/12/2253111/11/22 170 NA 138 136 140 CL 107 105 108* CO2 23 21* 22 BUN 11 13 11 CREATININE 0.54* 0.59 0.56 CALCIUM 8.1* 7.8* 8.4 No results for input(s): MG in the last 64503 hours. Recent Labs Component Name 11/13/2220911/12/2253111/11/22 1703 PHOS 3.9 2.5* 3.3 Recent Labs Component Name 11/13/22 0210 11/12/22 0532 11/11/22 2351 11/11/22 1703 11/11/22 0928 PT 17.7* 22.1* - - 16.2* INR 1.5 2.0 - - 1.3 PTT 47.9* 102.7* 78.8* - 129.8* - = values in this interval not displayed. No results for input(s): A1C in the last 45851 hours. Recent Labs Component Name 10/20/22 0302 06/15/22 0757 CHOL 173 204* HDL 42 37* LDLCALC 91 117* TRIG 201* 251* Recent Labs Component Name 11/13/22 021 TSH 5.706* No results for input(s): CKMB, CKTOTAL, CKMB, TROPONINI, BNP in the last 99430 hours. XR CHEST 1VW PORTABLE Result Date: 11/13/2022 PROCEDURE: XR CHEST 1VW PORTABLE, DATE/TIME OF EXAM: 11/12/2022 8:45 PM, LOCATION [facility] INDICATION: R50.9: Fever, unspecified fever cause [...] Report dictated by Agnes Olmos DO (residential program director). I, Pepe Gonzalez MD have p ersonally reviewed and interpreted this examination/study. > Interpreting Provider: Pepe Gonzalez MD on 11/13/2022 11:59 AM MRI BRAIN WWO CONTRAST Result Date: 11/10/2022 PROCEDURE: MRI BRAIN WWO CONTRAST, DATE/TIME OF EXAM: 11/09/2022 11:51 PM, LOCATION [facility] INDICATION: R50.9: Fever, unspecified fever cause [...] of the right lateral ventricle and the tdlaf-gy-ycqr midline shift. Extensive susceptibility artifacts along the [...] DATE/TIME OF EXAM: 11/07/2022 5:25 PM, LOCATION [facility] INDICATION: R50.9: Fever, unspecified fever cause [...] > Dictated by Tim Major MD (residential program director). I, Alexx Lopez have personally reviewed and [...] m-mode, color and spectralDoppler echocardiography. IR INTRACRANIAL [facility] THROMBECT Result Date: 11/07/2022 PROCEDURE: IR INTRACRANIAL [facility] THROMBECT DATE/TIME OF EXAM: 10/19/2022 10:41 [...] Time to Reperfusion: 9:54 Final TICI: 2b Juvenile Officer: Dr. Mitali Walter Track Fitter(s): Isak Monte Vessels: Ultrasound Guided Access of Femoral Artery Ultrasound Guided Access of Radial Artery Arterial line placement in the right radial artery Right Common Carotid Artery Angiogram: Cerebral Intracranial Catheterization Mechanical Thrombectomy with Retrievable Stent and Reperfusion Catheter Angiography Through the Existing Catheter Right Femoral Artery Angiogram Anesthesia: General Anesthesia was performed and monitored by an attending Anesthesiologist and their food trades assistants throughout the entirety of the case [...] artery demonstrated a patent vessel. A 5 tuvaluan sheath was placed in the radial artery [...] Following a series of exchanges, a 8 Wallisian sheath sheath was placed in the right femoralartery. A Guide and a 6 Wallisian StyleFeeder Select Serrano 2 catheter along with a [...] system. Hemostasis was achieved using a 8 Wallisian Angio-Seal closure device. Hemostasis was immediate at [...] DATE/TIME OF EXAM: 11/05/2022 5:28 PM, LOCATION [facility] INDICATION: R50.9: Fever, unspecified fever cause [...] Report dictated by Mc Castro MD, (residential program director). Pepe Ornelas MD have personally reviewed and [...] DATE/TIME OF EXAM: 11/05/2022 9:38 AM, LOCATION [facility] INDICATION: R50.9: Fever, unspecified fever cause ADDITIONAL CLINICAL INFORMATION: Ordering Provider Reason For Exam: consolidation COMPARISON: Chest radiograph 10/29/2022. FINDINGS/IMPRESSION: Previously seen feeding tube has been removed. These no confluent consolidation, pleural effusion, or pneumothorax is noted. The cardiomediastinal silhouette is stable. No acute osseous abnormality is noted. Report dictated by Christopher Tobin MD, (residential program director). I, HEATHER FREGOSO MD have personally reviewed and interpreted this examination/study. > Interpreting Provider: HEATHER FREGOSO MD on 11/05/2022 2:[address] ABDOMEN WO CONTRAST Result Date: 11/02/2022 PROCEDURE: CT ABDOMEN WO CONTRAST, DATE/TIME OF EXAM: 2022 6:47 PM, LOCATION [facility] INDICATION: Z93.1: Presence of externally removable [...] complication, as clinically queried.. > Dictated by iTm Major MD (residential program director). I, Pepe Gonzalez MD have personallyreviewed and interpreted this examination/study. 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 EXAMINATION: CT scanof the head without intravenous contrast TECHNIQUE: CT of the head was performed without intravenous contrast according to standard protocol. CT dose reduction technique was used, including AutomatedExposure Control. COMPARISON: Head CT 10/28/2022. Brain MRI [...] frontal gyrus/frontal operculum, consistent with an evolving uyadccry-rr-mtwcfak infarct. 4.No significant midline shift. Similar-appearing size and configuration of the ventricles without evidence of hydrocephalus. Basal cisterns are patent. 5.No other convincing change. Partially imaged left nasoenteric tube. > Interpreting Provider: Amanda Real MD, PhD on 10/31/2022 1:26 AM [facility] ANGIO TEAM Result Date: 10/30/2022 Fluoroscopy was used for this exam in the OR. Please see the Operative report. XR CHEST 1VW PORTABLE Result Date: 10/29/2022 PROCEDURE: XR CHEST 1VW PORTABLE, DATE/TIME OF EXAM: 10/29/2022 10:29 AM, LOCATION [facility] INDICATION: R09.02: Hypoxia ADDITIONAL CLINICAL INFORMATION: Ordering Provider Reason For Exam: evaluate for hypoxia COMPARISON: Chest x-ray from 10/27/2022 FINDINGS/IMPRESSION: Enteric tube is seen coursing over the diaphragm without visualization of the distal tip. There is no focal consolidation, pleural effusion, or pneumothorax. The cardiomediastinal silhouette is normal. Report dictated by Jacques Russell DO (residential program director). I, Jacques Cole DO have personally reviewed and interpreted this examination/study. 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 Report dictated by Jacques Russell DO (residential program director). Jacques Ornelas DO have personally reviewed and interpreted this examination/study. 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 FINDINGS/IMPRESSION: Enteric tube courses below the diaphragm with the distal tip superimposing the antropyloric region. Report dictated by Martell Shetty MD (residential program director). Jacques Ornelas DO have personally reviewed and interpreted this examination/study. > Interpreting Provider: Jacques Cole DO on 10/28/2022 12:[address] HEAD WO CONTRAST Result Date: 10/28/2022 PROCEDURE: CT HEAD WO CONTRAST, DATE/TIME OF EXAM: 10/28/2022 5:28 AM, LOCATION [facility] INDICATION: Z91.89: At high risk for [...] is dictated by Kayla Stevenson MD (residential program director) 1 Lonnie Ornelas MD have personally reviewed and interpreted this examination/study. > Interpreting Provider: Lonnie Rae MD on 10/28/2022 9:15 AM XR CHEST 1VW PORTABLE Result Date: 10/27/2022 PROCEDURE: XR CHEST 1VW PORTABLE, DATE/TIME OF EXAM: 10/27/2022 10:19 AM, LOCATION [facility] INDICATION: D72.829: Leukocytosis, unspecified type ADDITIONAL CLINICAL INFORMATION: Ordering Provider Reason For Exam: any concern for pneumonia COMPARISON: Chest radiograph dated 10/25/2022. FINDINGS/IMPRESSION: Enteric tube courses below the diaphragm and out of the ichjj-bz-jpmc. RUQ surgical clips are present. No focal consolidation. No pleural effusion or pneumothorax. The cardiomediastinal silhouette is normal. Report dictated by Agnes Olmos DO (residential program director). Pepe Ornelas MD have personally reviewed and interpreted this examination/study. 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 Enteric tube courses below the diaphragm and out of the knclq-ex-sihw. There is severe left rotation of the patient in this study. There is no focal consolidation, pleural effusion, or pneumothorax. The left upper lobe pulmonary nodule noted on chest CT from same day is not visualized on this plain film. The cardiomediastinal silhouette is normal. The visible bony thorax is intact. Report dictated by Royer Stovall MD (residential program director). IAlexx have personally reviewed and interpreted this examination/study. > Interpreting Provider: Alexx Lopez on 10/26/2022 2:[address] HEAD WO CONTRAST Result Date: 10/26/2022 PROCEDURE: CT HEAD WO CONTRAST, DATE/TIME OF EXAM: 10/26/2022 4:55 AM, LOCATION [facility] INDICATION: I63.511: Right middle cerebral artery [...] is dictated by Miranda Bowen MD (residential program director) IOriana MD have personally reviewed and interpreted this examination/study. > Interpreting Provider: Oriana Suarez MD on 38:[address] CHEST ABDOMEN PELVIS W CONT Result Date: 10/25/2022 PROCEDURE: CT CHEST ABDOMEN PELVIS W CONT, DATE/TIME OF EXAM: 10/25/2022 12:56 PM, LOCATION [facility] INDICATION: I63.511: Right middle cerebral artery [...] > Dictated by Clarisa Cantrell MD (residential program director). I, Alexx Lopez have personally reviewed and interpreted this examination/study. 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 > Interpreting Provider: Joni Fabian MD on 10/25/2022 2:[address] CARDIAC ANGIO STRUCT MORPH Result Date: 10/25/2022 PROCEDURE: CT CARDIAC ANGIO STRUCT MORPH, DATE/TIME OF EXAM: 10/23/2022 3:08 PM, LOCATION [facility] INDICATION: I63.411: Acute cerebrovascular accident (CVA) [...] DATE/TIME OF EXAM: 10/24/2022 2:04 PM, LOCATION [facility] INDICATION: R47.1: Dysarthria ADDITIONAL CLINICAL INFORMATION: Ordering Provider ReasonFor Exam: ngt placement COMPARISON: Portable KUB dated 10/23/2022 FINDINGS/IMPRESSION: The enteric tube courses below the diaphragm with tip superimposing the gastric pyloric region. Drafted by Agnes Olmos DO (residential program director). I, Vanessa Kumar MD have personally reviewed and interpreted this examination/study. > Interpreting Provider: Vanessa Kumar MD on 10/24/2022 2:17 PM MRI BRAIN WWO CONTRAST Result Date: 10/24/2022 PROCEDURE: MRI BRAIN WWO CONTRAST, DATE/TIME OF EXAM: 10/24/2022 10:56 AM, LOCATION [facility] INDICATION: I63.411: Acute cerebrovascular accident (CVA) [...] right lateral ventricle, and approximately 3-4 mm dndxi-ke-qkbj midline shift at the level of the [...] right lateral ventricle, and approximately 3-4 mm wimhb-yo-xhgr midline shift, grossly similar to the prior. [...] Report dictated by Tim Major MD (residential program director). Jasper Ornelas MD have personally reviewed and interpreted this examination/study. 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 Endotracheal tube terminates in the midthoracic trachea. There is no focal consolidation. No pleural effusion or pneumothorax. The cardiomediastinal silhouette is normal. No acute osseous abnormality. Report dictated by Agnes Olmos DO (residential program director). Vanessa Ornelas MD have personally reviewed and [...] DATE/TIME OF EXAM: 10/23/2022 1:53 PM, LOCATION [facility] INDICATION: R47.1: Dysarthria ADDITIONAL CLINICAL INFORMATION: Ordering Provider ReasonFor Exam: NGT placement COMPARISON: Portable KUB dated 10/20/2022 FINDINGS/IMPRESSION: The enteric tube courses below the diaphragm with tip superimposing the stomach. Drafted by Agnes Olmos DO (residential program director). I, Vanessa Kumar MD have personally reviewed and interpreted this examination/study. > Interpreting Provider: Vanessa Kumar MD on 10/24/2022 8:[address] HEAD WO CONTRAST Result Date: 10/23/2022 PROCEDURE: CT HEAD WO CONTRAST, DATE/TIME OF EXAM: 10/23/2022 5:53 AM, LOCATION [facility] INDICATION: I63.511: Right middle cerebral artery [...] report is dictated by Miranda Bowen MD(residential program director) IJasper MD have personally reviewed and interpreted this examination/study. > Interpreting Provider: Jasper Sifuentes MD on 10/23/2022 9:[address] HEAD WO CONTRAST Result Date: 10/22/2022 PROCEDURE: CT HEAD WO CONTRAST, DATE/TIME OF EXAM: 10/22/2022 5:35 AM, LOCATION [facility] INDICATION: I63.511: Right middle cerebral artery [...] hemorrhage. Report dictated by Lorenzo Horta MD (resident associate). ILonnie MD have personally reviewed and interpreted this examination/study. > Interpreting Provider: Lonnie Rae MD on 10/22/2022 3:10 PM XR CHEST 1VW PORTABLE Result Date: 10/21/2022 PROCEDURE: XR CHEST 1VW PORTABLE, DATE/TIME OF EXAM: 10/21/2022 8:53 AM, LOCATION [facility] INDICATION: R53.1: Weakness ADDITIONAL CLINICAL INFORMATION: [...] dictated by Christopher Tobin MD, MD (residential program director). I, HEATHER FREGOSO MD have personally reviewed [...] DATE/TIME OF EXAM: 10/20/2022 9:13 PM, LOCATION [facility] INDICATION: I63.411: Acute cerebrovascular accident (CVA) due to embolism of right middle cerebral artery (CMS/HCC) ADDITIONAL CLINICAL INFORMATION: Ordering Provider Reason For Exam: [facility] COMPARISON: Multiple prior studies, most recently CT [...] effacement, effacement of theright lateral ventricle, and azloe-xs-dqys midline shift measuring up to 4 mm [...] prior. > Dictated by Bassam Jovel M.D. (resident associate) Gonzalez Ornelas MD have personally reviewed and [...] Report dictated by Royer Stovall MD (residential program director). Amanda Ornelas MD have personally reviewed and [...] DATE/TIME OF EXAM: 10/19/2022 8:16 AM, LOCATION [facility] INDICATION: Code Stroke ADDITIONAL CLINICAL INFORMATION: [...] DATE/TIME OF EXAM: 10/19/2022 8:04 AM, LOCATION [facility] INDICATION: Code Stroke ADDITIONAL CLINICAL INFORMATION: [...] MD - 11/13/2022 2:12 PM CDT [facility] MEDICINE CONSULTATION Patient: Consuelo Darby Age: [age] year old Date of : 1980 Date of Admission: 10/19/2022 Date: 11/13/2022 Reason for consult: elevated liver enzymes Consult team: Neuro stroke HISTORY: I saw Ms. Consuelo Darby in consultation at [facility] on 11/13/2022 for evaluation of her [...] input(s): CKTOTAL, CKMB, TROPONINI in the last 70801 hours. Invalid input(s): CKMBINDEX Lipid Panel: Recent [...] Triana COTA - 11/13/2022 1:20 PM CDT [facility] Physical Medicine and Rehabilitation Occupational Therapy Splint [...] break at this time so splint re-applied. AMBROSE richards. 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 and Will continue to monitor [...] General Surgery Resident, PGY1 11/13/2022 11:27 * Simi Johnson Tia Amy, PT - 11/13/2022 10:25 AM CDT [facility] Physical Medicine and Rehabilitation Physical Therapy Progress Note Patient: Consuelo Darby Med Record Number: [id number] Date of : 1980 Age: [age] year [...] and head/trunk alignment Modified Maryann: Current Modified [place] Score: 5 AM-PAC 6 Clicks Mobility Raw [...] sit EOB x10 minutes with minimal assist Ch[facility] Goal(s): Patient to discharge to appropriate next [...] in room, with RN in room, with RNRadha aware, with therapy cues visible on white board. * Liam Parks MD - 11/13/2022 8:36 AM CDT [facility] Infectious Diseases Progress Note Date of Admission: 10/19/2022 7:53 AM Length of Stay: Day 25 Room: [facility] Attending: Good Antunez MD Subjective Since last [...] Doxycycline 11/05 - present Prior Antibiotics At [facility] Cefazolin 10/20 Vancomycin 10/20; 10/25 - Ceftriaxone [...] DVT At this time most concerning for -RELATIONSHIP EXECUTIVE infection, MRI cannot rule out cerebritis/meningitis, needs [...] Liam Parks MD (PGY-5) Infectious Diseases [facility] Pager: [phone] ID Clinic Associated attestation - Gilberto Pastrana MD - 11/13/2022 5:57 PM CDT I have reviewed the record and independently examined the patient. I agree with the findings and plan of care as documented by the loader malt house. Consuelo Darby is a 42 year old [...] ??F (37.3 ??C) 100 -- 111/57 11/12/22 191 99.6 ??F (37.6 ??C) -- -- -- 11/12/22 1719 (!) 100.3 ??F (37.9 ??C) -- -- -- 11/12/22 1553 (!) 102.9 ??F (39.4 ??C) (!) 119 19 135/70 11/12/22 1347 99.8 ??F (37.7 ??C) 103 -- 100/77 11/12/22 1156 (!) 102.6 ??F (39.2 ??C) 106 17 93/70 11/12/22 1058 (!) 102.2 ??F (39 ??C) -- -- -- Recent Labs Component Name 11/13/220 11/12/22 0532 11/11/22 1703 NA 138 136 140 CL 107 105 108* CO2 23 21* 22 BUN 11 13 11 CREATININE 0.54* 0.59 0.56 CALCIUM 8.1* 7.8* 8.4 PHOS 3.9 2.5* 3.3 Recent Labs Component Name 11/13/22 0210 11/12/22 0532 11/11/22170210/23/2212810/22/22 0153 WBC 2.7* 4.8 5.0 - - [...] Chin OT - 11/12/2022 3:59 PM CDT [facility] Physical Medicine and Rehabilitation Occupational Therapy Splint [...] bilaterally ? Labs: Recent Labs Component Name 11/12/2253111/11/22170211/10/22 2338 10/23/22 [...] results for input(s): MG in the last 17342 hours. Recent Labs Component Name 11/12/2253111/11/22170211/10/22222 PHOS 2.5* 3.3 3.9 Recent Labs Component Name 11/12/2253111/11/22 23511/11/22170211/11/22 0928 11/10/22 2338 PT 22.1* - - 16.2* 15.6* INR 2.0 - - 1.3 1.3 PTT 102.7* 78.8* 140.8* 129.8* 36.3 No results for input(s): A1C in the last 88154 hours. Recent Labs Component Name 10/20/22 0302 06/15/22 0757 CHOL 173 204* HDL 42 37* LDLCALC 91 117* TRIG 201* 251* Recent Labs Component Name 11/06/22 0136 TSH 1.682 No results for input(s): CKMB, CKTOTAL, CKMB, TROPONINI, BNP in the last 74625 hours. MRI BRAIN WWO CONTRAST Result Date: 11/10/2022 PROCEDURE: MRI BRAIN WWO CONTRAST, DATE/TIME OF EXAM: 11/09/2022 11:51 PM, LOCATION [facility] INDICATION: R50.9: Fever, unspecified fever cause [...] of the right lateral ventricle and the vscgf-jr-aobo midline shift. Extensive susceptibility artifacts along the [...] DATE/TIME OF EXAM: 11/07/2022 5:25 PM, LOCATION [facility] INDICATION: R50.9: Fever, unspecified fever cause [...] > Dictated by Tim Major MD (residential program director). Alexx Ornelas have personally reviewed and interpreted [...] Time to Reperfusion: 9:54 Final TICI: 2b Juvenile Officer: Dr. Mitali Walter Track Fitter(s): Isak Monte Vessels: Ultrasound Guided Access of Femoral Artery Ultrasound Guided Access of Radial Artery Arterial line placement in the right radial artery Right Common Carotid Artery Angiogram: Cerebral Intracranial Catheterization Mechanical Thrombectomy with Retrievable Stent and Reperfusion Catheter Angiography Through the Existing Catheter Right Femoral Artery Angiogram Anesthesia: General Anesthesia was performed and monitored by an attending Anesthesiologist and their food trades assistants throughout the entirety of the case [...] artery demonstrated a patent vessel. A 5 tuvaluan sheath was placed in the radial artery [...] Following a series of exchanges, a 8 Wallisian sheath sheath was placed in the right femoralartery. A Guide and a 6 Wallisian Penumbra Select Serrano 2 catheter along with [...] system. Hemostasis was achieved using a 8 Wallisian Angio-Seal closure device. Hemostasis was immediate at [...] DATE/TIME OF EXAM: 11/05/2022 5:28 PM, LOCATION [facility] INDICATION: R50.9: Fever, unspecified fever cause [...] Report dictated by Mc Castro MD, (residential program director). I, Pepe Gonzalez MD have personally reviewed [...] DATE/TIME OF EXAM: 11/05/2022 9:38 AM, LOCATION [facility] INDICATION: R50.9: Fever, unspecified fever cause ADDITIONAL CLINICAL INFORMATION: Ordering Provider Reason For Exam: consolidation COMPARISON: Chest radiograph 10/29/2022. FINDINGS/IMPRESSION: Previously seen feeding tube has been removed. These no confluent consolidation, pleural effusion, or pneumothorax is noted. The cardiomediastinal silhouette is stable. No acute osseous abnormality is noted. Report dictated by Christopher Tobin MD, MD (residential program director). I, HEATHER FREGOSO MD have personally reviewed and interpreted this examination/study. > Interpreting Provider: HEATHER FREGOSO MD on 11/05/2022 2:[address] ABDOMEN WO CONTRAST Result Date: 11/02/2022 PROCEDURE: CT ABDOMEN WO CONTRAST, DATE/TIME OF EXAM: 2022 6:47 PM, LOCATION [facility] INDICATION: Z93.1: Presence of externally removable [...] > Dictated by Tim Major MD (residential program director). I, Pepe Gonzalez MD have personallyreviewed and interpreted this examination/study. > Interpreting Provider: Pepe Gonzalez MD on 11/02/2022 1:[address] ABDOMEN PELVIS W CONTRAST Result Date: 10/31/2022 PROCEDURE: CT ABDOMEN PELVIS W CONTRAST, DATE/TIME OF EXAM: 10/31/2022 10:16 AM, LOCATION [facility] INDICATION: I33.0: Aortic valve vegetation ADDITIONAL [...] DATE/TIME OF EXAM: 10/30/2022 8:22 PM, LOCATION: [facility] HISTORY: I63.511: Right middle cerebral artery [...] frontal gyrus/frontal operculum, consistent with an evolving kxcbgjwy-nj-qveemcx infarct. 4.No significant midline shift. Similar-appearing size [...] DATE/TIME OF EXAM: 10/29/2022 10:29 AM, LOCATION [facility] INDICATION: R09.02: Hypoxia ADDITIONAL CLINICAL INFORMATION: Ordering Provider Reason For Exam: evaluate for hypoxia COMPARISON: Chest x-ray from 10/27/2022 FINDINGS/IMPRESSION: Enteric tube is seen coursing over the diaphragm without visualization of the distal tip. There is no focal consolidation, pleural effusion, or pneumothorax. The cardiomediastinal silhouette is normal. Report dictated by Jacques Russell DO (residential program director). Jacques Ornelas DO have personally reviewed and interpreted this examination/study. 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 Report dictated by Jacques Russell DO (residential program director). Jacques Ornelas DO have personally reviewed and interpreted this examination/study. 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 FINDINGS/IMPRESSION: Enteric tube courses below the diaphragm with the distal tip superimposing the antropyloric region. Report dictated by Martell Shetty MD (residential program director). Jacques Ornelas DO have personally reviewed and interpreted this examination/study. > Interpreting Provider: Jacques Cole DO on 10/28/2022 12:[address] HEAD WO CONTRAST Result Date: 10/28/2022 PROCEDURE: CT HEAD WO CONTRAST, DATE/TIME OF EXAM: 10/28/2022 5:28 AM, LOCATION [facility] INDICATION: Z91.89: At high risk for [...] is dictated by Kayla Stevenson MD (residential program director) 1 I, Lonnie Rae MD have personally reviewed and interpreted this examination/study. > Interpreting Provider: Lonnie Rae MD on 10/28/2022 9:15 AM XR CHEST 1VW PORTABLE Result Date: 10/27/2022 PROCEDURE: XR CHEST 1VW PORTABLE, DATE/TIME OF EXAM: 10/27/2022 10:19 AM, LOCATION [facility] INDICATION: D72.829: Leukocytosis, unspecified type ADDITIONAL CLINICAL INFORMATION: Ordering Provider Reason For Exam: any concern for pneumonia COMPARISON: Chest radiograph dated 10/25/2022. FINDINGS/IMPRESSION: Enteric tube courses below the diaphragm and out of the mssqw-ov-dcpm. RUQ surgical clips are present. No focal consolidation. No pleural effusion or pneumothorax. The cardiomediastinal silhouette is normal. Report dictated by Agnes Olmos DO (residential program director). I, Pepe Gonzalez MD have personally reviewed and interpreted this examination/study. 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 Enteric tube courses below the diaphragm and out of the ecvzf-zg-geqr. There is severe left rotation of the patient in this study. There is no focal consolidation, pleural effusion, or pneumothorax. The left upper lobe pulmonary nodule noted on chest CT from same day is not visualized on this plain film. The cardiomediastinal silhouette is normal. The visible bony thorax is intact. Report dictated by Royer Stovall MD (residential program director). I, Alexx Lopez have personally reviewed and interpreted this examination/study. > Interpreting Provider: Alexx Lopez on 10/26/2022 2:[address] HEAD WO CONTRAST Result Date: 10/26/2022 PROCEDURE: CT HEAD WO CONTRAST, DATE/TIME OF EXAM: 10/26/2022 4:55 AM, LOCATION [facility] INDICATION: I63.511: Right middle cerebral artery [...] is dictated by Miranda Bowen MD (residential program director) I, Oriana Suarez MD have personally reviewed and interpreted this examination/study. > Interpreting Provider: Oriana Suarez MD on 38:[address] CHEST ABDOMEN PELVIS W CONT Result Date: 10/25/2022 PROCEDURE: CT CHEST ABDOMEN PELVIS W CONT, DATE/TIME OF EXAM: 10/25/2022 12:56 PM, LOCATION [facility] INDICATION: I63.511: Right middle cerebral artery [...] > Dictated by Clarisa Cantrell MD (residential program director). I, Alexx Lopez have personally reviewed and interpreted this examination/study. > Interpreting Provider: Alexx Lopez on 10/25/2022 4:[address] HEAD WO CONTRAST Result Date: 10/25/2022 PROCEDURE: CT HEAD WO CONTRAST, DATE/TIME OF EXAM: 10/25/2022 12:56 PM, LOCATION [facility] INDICATION: I63.511: Right middle [...] is dictated by Miranda Bowen MD (residential program director) I, Joni Fabian MD have personally reviewed and interpreted this examination/study. > Interpreting Provider: Joni Fabian MD on 10/25/2022 2:[address] CARDIAC ANGIO STRUCT MORPH Result Date: 10/25/2022 PROCEDURE: CT CARDIAC ANGIO STRUCT MORPH, DATE/TIME OF EXAM: 10/23/2022 3:08 PM, LOCATION [facility] INDICATION: I63.411: Acute cerebrovascular accident (CVA) [...] DATE/TIME OF EXAM: 10/24/2022 2:04 PM, LOCATION [facility] INDICATION: R47.1: Dysarthria ADDITIONAL CLINICAL INFORMATION: Ordering Provider ReasonFor Exam: ngt placement COMPARISON: Portable KUB dated 10/23/2022 FINDINGS/IMPRESSION: The enteric tube courses below the diaphragm with tip superimposing the gastric pyloric region. Drafted by Agens Olmos DO (residential program director). I, Vanessa Kumar MD have personally reviewed and interpreted this examination/study. > Interpreting Provider: Vanessa Kumar MD on 10/24/2022 2:17 PM MRI BRAIN WWO CONTRAST Result Date: 10/24/2022 PROCEDURE: MRI BRAIN WWO CONTRAST, DATE/TIME OF EXAM: 10/24/2022 10:56 AM, LOCATION [facility] INDICATION: I63.411: Acute cerebrovascular accident (CVA) [...] right lateral ventricle, and approximately 3-4 mm wjjpy-qp-sgfk midline shift at the level of the [...] right lateral ventricle, and approximately 3-4 mm bxpcm-wt-qczu midline shift, grossly similar to the prior. [...] comprehension and verification. Report dictated by Tim Maojr MD (residential program director). I, Jasper Sifuentes MD have personally reviewed and interpreted this examination/study. 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 Endotracheal tube terminates in the midthoracic trachea. There is no focal consolidation. No pleural effusion or pneumothorax. The cardiomediastinal silhouette is normal. No acute osseous abnormality. Report dictated by Agnes Olmos DO (residential program director). Vanessa Ornelas MD have personally reviewed and [...] DATE/TIME OF EXAM: 10/23/2022 1:53 PM, LOCATION [facility] INDICATION: R47.1: Dysarthria ADDITIONAL CLINICAL INFORMATION: Ordering Provider ReasonFor Exam: NGT placement COMPARISON: Portable KUB dated 10/20/2022 FINDINGS/IMPRESSION: The enteric tube courses below the diaphragm with tip superimposing the stomach. Drafted by Agnes Olmos DO (residential program director). Vanessa Ornelas MD have personally reviewed and interpreted this examination/study. > Interpreting Provider: Vanessa Kumar MD on 10/24/2022 8:[address] HEAD WO CONTRAST Result Date: 10/23/2022 PROCEDURE: CT HEAD WO CONTRAST, DATE/TIME OF EXAM: 10/23/2022 5:53 AM, LOCATION [facility] INDICATION: I63.511: Right middle cerebral artery [...] report is dictated by Miranda Bowen MD(residential program director) I, Jasper Sifuentes MD have personally reviewed and interpreted this examination/study. 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 COMPARISON: No prior study is available for comparison at the time of this dictation. FINDINGS: Redemonstration of post surgical changes of a right hemicraniectomy, and a right MCA infarct. Stable appearance of right intracra nial pressure monitor. There are extra-axial blood products along the right lateral cerebral convexity at the craniectomy site with associated pneumocephalus consistent with postsurgical changes. There is extensive edema and mass effect in the right MCA territory. There is sulcal effacement and effa cement of the right lateral ventricle. There is [...] hemorrhage. Report dictated by Lorenzo Horta MD (resident associate). I, Lonnie Rae MD have personally reviewed and interpreted this examination/study. > Interpreting Provider: Lonnie Rae MD on 10/22/2022 3:10 PM XR CHEST 1VW PORTABLE Result Date: 10/21/2022 PROCEDURE: XR CHEST 1VW PORTABLE, DATE/TIME OF EXAM: 10/21/2022 8:53 AM, LOCATION [facility] INDICATION: R53.1: Weakness ADDITIONAL CLINICAL INFORMATION: [...] dictated by Christopher Tobin MD, MD (residential program director). IHEATHER MD have personally reviewed and interpreted [...] DATE/TIME OF EXAM: 10/20/2022 9:13 PM, LOCATION [facility] INDICATION: I63.411: Acute cerebrovascular accident (CVA) due to embolism of right middle cerebral artery (CMS/HCC) ADDITIONAL CLINICAL INFORMATION: Ordering Provider Reason For Exam: [facility] COMPARISON: Multiple prior studies, most recently CT [...] effacement, effacement of theright lateral ventricle, and hfacu-ia-qnel midline shift measuring up to 4 mm [...] prior. > Dictated by Bassam Jovel M.D. (resident associate) I, Gonzalez Velasco MD have personally reviewed [...] Report dictated by Royer Stovall MD (residential program director). I, Amanda Prieto MD have personally reviewed [...] DATE/TIME OF EXAM: 10/19/2022 8:16 AM, LOCATION [facility] INDICATION: Code Stroke ADDITIONAL CLINICAL INFORMATION: [...] DATE/TIME OF EXAM: 10/19/2022 8:04 AM, LOCATION [facility] INDICATION: Code Stroke ADDITIONAL CLINICAL INFORMATION: [...] common femoral thrombectomy and patch angioplasty by [facility] surgery - Vascular Sx reconsulted for hematoma: [...] cardiology and vascular surgery - Urology replaced curtis (11/09-) - Ddimer was high: w/u -ve [...] 100.4 ??F (38 ??C) -- -- -- 11/11/22 2010 97.9 ??F (36.6 ??C) 78 16 110/53 11/11/22 1918 98.3 ??F (36.8 ??C) 78 16 117/63 11/11/22 1631 98.3 ??F (36.8 ??C) 83 18 124/76 11/11/22 1311 98.8 ??F (37.1 ??C) 84 18 123/78 Recent Labs Component Name 11/12/22 0532 11/11/22 17011/10/22 0223 NA 136 140 136 CL 105 [...] Cruz MD - 11/12/2022 7:47 AM CDT [facility] Infectious Diseases Progress Note Admitted on: 10/19/2022 7:53 AM Hospital stay: Room: [facility] Attending: Good Antunez MD Reason for ID [...] LP with CSF analysis to eval of RELATIONSHIP EXECUTIVE infection, neurosurgery initially had less suspicion of RELATIONSHIP EXECUTIVE infection, LP was deferred. Discussed again today. [...] ??? S/p 10/20 with neurosurgery for R sided??dqzpks-hbxmlam-qaqorpbb??decompressive sonya-craniectomy??for??treatment of??refractory intracranial hypertension. 7. Renal function: [...] team. Angelica Cruz M.D. Infectious Diseases Pager [phone] * Ventura Zendejas Jr., PharmD - 11/12/2022 [...] 130/74 -- -- 100 -- 94 % 11/10/221 126/68 -- -- 104 -- -- 11/10/225 125/79 -- -- 107 -- -- 11/10/22 [...] -- -- (!) 116 20 100 % 11/10/22 2100 129/58 -- -- (!) 113 (!) 33 [...] results for input(s): MG in the last 31656 hours. Recent Labs Component Name 11/10/2222211/08/22234511/07/22 2234 PHOS 3.9 3.8 4.3 Recent Labs Component Name 11/11/2292711/10/2211/10/23 0223 11/07/22 0305 11/06/22 2312 PT 16.2* 15.6* 20.5* - - INR 1.3 1.3 1.8 - - PTT 129.8* 36.3 - - 63.4* - = values in this interval not displayed. No results for input(s): A1C in the last 95671 hours. Recent Labs Component Name 10/20/22 0302 06/15/22 0757 CHOL 173 204* HDL 42 37* LDLCALC 91 117* TRIG 201* 251* Recent Labs Component Name 11/06/22 0136 TSH 1.682 No results for input(s): CKMB, CKTOTAL, CKMB, TROPONINI, BNP in the last 68857 hours. MRI BRAIN WWO CONTRAST Result Date: 11/10/2022 PROCEDURE: MRI BRAIN WWO CONTRAST, DATE/TIME OF EXAM: 11/09/2022 11:51 PM, LOCATION [facility] INDICATION: R50.9: Fever, unspecified fever cause [...] of the right lateral ventricle and the hwgri-lr-vqov midline shift. Extensive susceptibility artifacts along the [...] DATE/TIME OF EXAM: 11/07/2022 5:25 PM, LOCATION [facility] INDICATION: R50.9: Fever, unspecified fever cause [...] > Dictated by Tim Major MD (residential program director). I, Alexx Lopez have personally reviewed and [...] Time to Reperfusion: 9:54 Final TICI: 2b Juvenile Officer: Dr. Mitali Walter Track Fitter(s): Isak Monte Vessels: Ultrasound Guided Access of Femoral Artery Ultrasound Guided Access of Radial Artery Arterial line placement in the right radial artery Right Common Carotid Artery Angiogram: Cerebral Intracranial Catheterization Mechanical Thrombectomy with Retrievable Stent and Reperfusion Catheter Angiography Through the Existing Catheter Right Femoral Artery Angiogram Anesthesia: General Anesthesia was performed and monitored by an attending Anesthesiologist and their food trades assistants throughout the entirety of the case [...] artery demonstrated a patent vessel. A 5 tuvaluan sheath was placed in the radial artery [...] Following a series of exchanges, a 8 Wallisian sheath sheath was placed in the right femoralartery. A Guide and a 6 Wallisian SprayCoolra Select Serrano 2 catheter along with a [...] system. Hemostasis was achieved using a 8 Wallisian Angio-Seal closure device. Hemostasis was immediate at [...] DATE/TIME OF EXAM: 11/05/2022 5:28 PM, LOCATION [facility] INDICATION: R50.9: Fever, unspecified fever cause [...] Report dictated by Mc Castro MD, (residential program director). I, Pepe Gonzalez MD have personally reviewed [...] DATE/TIME OF EXAM: 11/05/2022 9:38 AM, LOCATION [facility] INDICATION: R50.9: Fever, unspecified fever cause ADDITIONAL CLINICAL INFORMATION: Ordering Provider Reason For Exam: consolidation COMPARISON: Chest radiograph 10/29/2022. FINDINGS/IMPRESSION: Previously seen feeding tube has been removed. These no confluent consolidation, pleural effusion, or pneumothorax is noted. The cardiomediastinal silhouette is stable. No acute osseous abnormality is noted. Report dictated by Christopher Tobin MD, MD (residential program director). I, HEATHER FREGOSO MD have personally reviewed and interpreted this examination/study. > Interpreting Provider: HEATHER FREGOSO MDon 11/05/2022 2:[address] ABDOMEN WO CONTRAST Result Date: 11/02/2022 PROCEDURE: CT ABDOMEN WO CONTRAST, DATE/TIME OF EXAM: 2022 6:47 PM, LOCATION [facility] INDICATION: Z93.1: Presence of externally removable [...] > Dictated by Tim Major MD (residential program director). I, Pepe Gonzalez MD have personallyreviewed and interpreted this examination/study. > Interpreting Provider: Pepe Gonzalez MD on 11/02/2022 1:[address] ABDOMEN PELVIS W CONTRAST Result Date: 10/31/2022 PROCEDURE: CT ABDOMEN PELVIS W CONTRAST, DATE/TIME OF EXAM: 10/31/2022 10:16 AM, LOCATION [facility] INDICATION: I33.0: Aortic valve vegetation ADDITIONAL [...] DATE/TIME OF EXAM: 10/30/2022 8:22 PM, LOCATION: [facility] HISTORY: I63.511: Right middle cerebral artery [...] frontal gyrus/frontal operculum, consistent with an evolving pvkyeogs-ch-vatafrc infarct. 4.No significant midline shift. Similar-appearing size [...] DATE/TIME OF EXAM: 10/29/2022 10:29 AM, LOCATION [facility] INDICATION: R09.02: Hypoxia ADDITIONAL CLINICAL INFORMATION: Ordering Provider Reason For Exam: evaluate for hypoxia COMPARISON: Chest x-ray from 10/27/2022 FINDINGS/IMPRESSION: Enteric tube is seen coursing over the diaphragm without visualization of the distal tip. There is no focal consolidation, pleural effusion, or pneumothorax. The cardiomediastinal silhouette is normal. Report dictated by Jacques Russell DO (residential program director). Jacques Ornelas DO have personally reviewed and interpreted this examination/study. 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 Report dictated by Jacques Russell DO (residential program director). Jacques Ornelas DO have personally reviewed and interpreted this examination/study. 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 FINDINGS/IMPRESSION: Enteric tube courses below the diaphragm with the distal tip superimposing the antropyloric region. Report dictated by Martell Shetty MD (residential program director). I, Jacques Cole DO have personally reviewed and interpreted this examination/study. > Interpreting Provider: Jacques Cole DO on 10/28/2022 12:[address] HEAD WO CONTRAST Result Date: 10/28/2022 PROCEDURE: CT HEAD WO CONTRAST, DATE/TIME OF EXAM: 10/28/2022 5:28 AM, LOCATION [facility] INDICATION: Z91.89: At high risk for [...] is dictated by Kayla Stevenson MD (residential program director) 1 Lonnie Ornelas MD have personally reviewed and interpreted this examination/study. > Interpreting Provider: Lonnie Rae MD on 10/28/2022 9:15 AM XR CHEST 1VW PORTABLE Result Date: 10/27/2022 PROCEDURE: XR CHEST 1VW PORTABLE, DATE/TIME OF EXAM: 10/27/2022 10:19 AM, LOCATION [facility] INDICATION: D72.829: Leukocytosis, unspecified type ADDITIONAL CLINICAL INFORMATION: Ordering Provider Reason For Exam: any concern for pneumonia COMPARISON: Chest radiograph dated 10/25/2022. FINDINGS/IMPRESSION: Enteric tube courses below the diaphragm and out of the trani-og-dflc. RUQ surgical clips are present. No focal consolidation. No pleural effusion or pneumothorax. The cardiomediastinal silhouette is normal. Report dictated by Agnes Olmos DO (residential program director). IPepe MD have personally reviewed and interpreted this examination/study. > Interpreting Provider: Pepe Gonzalez MD on 10/27/2022 2:[address] HEAD WO CONTRAST Result Date: 10/27/2022 PROCEDURE: CT HEAD WO CONTRAST, DATE/TIME OF EXAM: 10/27/2022 5:54 AM, LOCATION [facility] INDICATION: I63.511: Right middle cerebral artery [...] DATE/TIME OF EXAM: 10/25/2022 9:41 AM, LOCATION [facility] INDICATION: I63.511: Right middle cerebral artery stroke ([facility]/HCC) ADDITIONAL CLINICAL INFORMATION: Ordering Provider Reason For Exam: Atlectasis/mucus plugging Comparison: Chest x-ray from10/23/2022, and CT chest, abdomen, pelvis from same day FINDINGS/IMPRESSION: Interval removal of theendotracheal tube. Enteric tube courses below the diaphragm and out of the clspg-zg-kpoq. There is severe left rotation of the patient in this study. There is no focal consolidation, pleural effusion, or pneumothorax. The left upper lobe pulmonary nodule noted on chest CT from same day is not visualized on this plain film. The cardiomediastinal silhouette is normal. The visible bony thorax is intact. Report dictated by Royer Stovall MD (residential program director). IAlexx have personally reviewed and interpreted this examination/study. > Interpreting Provider: Alexx Lopez on 10/26/2022 2:[address] HEAD WO CONTRAST Result Date: 10/26/2022 PROCEDURE: CT HEAD WO CONTRAST, DATE/TIME OF EXAM: 10/26/2022 4:55 AM, LOCATION [facility] INDICATION: I63.511: Right middle cerebral artery stroke ([facility]/HCC) ADDITIONAL CLINICAL INFORMATION: Ordering Provider Reason [...] is dictated by Miranda Bowen MD (residential program director) IOriana MD have personally reviewed and interpreted this examination/study. > Interpreting Provider: Oriana Suarez MD on 38:[address] CHEST ABDOMEN PELVIS W CONT Result Date: 10/25/2022 PROCEDURE: CT CHEST ABDOMEN PELVIS W CONT, DATE/TIME OF EXAM: 10/25/2022 12:56 PM, LOCATION [facility] INDICATION: I63.511: Right middle cerebral artery [...] comprehension and verification. > Dictated by Clarisa Cantrlel MD (residential program director). I, Alexx Lopez have personally reviewed and interpreted this examination/study. > Interpreting Provider: Alexx Lopez on 10/25/2022 4:[address] HEAD WO CONTRAST Result Date: 10/25/2022 PROCEDURE: CT HEAD WO CONTRAST, DATE/TIME OF EXAM: 10/25/2022 12:56 PM, LOCATION [facility] INDICATION: I63.511: Right middle [...] is dictated by Miranda Bowen MD (residential program director) I, Joni Fabian MD have personally reviewed and interpreted this examination/study. > Interpreting Provider: Joni Fabian MD on 10/25/2022 2:[address] CARDIAC ANGIO STRUCT MORPH Result Date: 10/25/2022 PROCEDURE: CT CARDIAC ANGIO STRUCT MORPH, DATE/TIME OF EXAM: 10/23/2022 3:08 PM, LOCATION [facility] INDICATION: I63.411: Acute cerebrovascular accident (CVA) [...] DATE/TIME OF EXAM: 10/24/2022 2:04 PM, LOCATION [facility] INDICATION: R47.1: Dysarthria ADDITIONAL CLINICAL INFORMATION: Ordering Provider ReasonFor Exam: ngt placement COMPARISON: Portable KUB dated 10/23/2022 FINDINGS/IMPRESSION: The enteric tube courses below the diaphragm with tip superimposing the gastric pyloric region. Drafted by Agnes Olmos DO (residential program director). I, Vanessa Kumar MD have personally reviewed and interpreted this examination/study. > Interpreting Provider: Vanessa Kumar MD on 10/24/2022 2:17 PM MRI BRAIN WWO CONTRAST Result Date: 10/24/2022 PROCEDURE: MRI BRAIN WWO CONTRAST, DATE/TIME OF EXAM: 10/24/2022 10:56 AM, LOCATION [facility] INDICATION: I63.411: Acute cerebrovascular accident (CVA) [...] right lateral ventricle, and approximately 3-4 mm ipihd-lp-dvlx midline shift at the level of the [...] right lateral ventricle, and approximately 3-4 mm qvnac-iz-pjha midline shift, grossly similar to the prior. [...] Report dictated by Tim Major MD (residential program director). I, Jasper Sifuentes MD have personally reviewed and interpreted this examination/study. 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 Endotracheal tube terminates in the midthoracic trachea. There is no focal consolidation. No pleural effusion or pneumothorax. The cardiomediastinal silhouette is normal. No acute osseous abnormality. Report dictated by Agnes Olmos DO (residential program director). Vanessa Ornelas MD have personally reviewed and [...] DATE/TIME OF EXAM: 10/23/2022 1:53 PM, LOCATION [facility] INDICATION: R47.1: Dysarthria ADDITIONAL CLINICAL INFORMATION: Ordering Provider ReasonFor Exam: NGT placement COMPARISON: Portable KUB dated 10/20/2022 FINDINGS/IMPRESSION: The enteric tube courses below the diaphragm with tip superimposing the stomach. Drafted by Agnes Olmos DO (residential program director). Vanessa Ornelas MD have personally reviewed and interpreted this examination/study. > Interpreting Provider: Vanessa Kumar MD on 10/24/2022 8:[address] HEAD WO CONTRAST Result Date: 10/23/2022 PROCEDURE: CT HEAD WO CONTRAST, DATE/TIME OF EXAM: 10/23/2022 5:53 AM, LOCATION [facility] INDICATION: I63.511: Right middle cerebral artery [...] report is dictated by Miranda Bowen MD(residential program director) Jasper Ornelas MD have personally reviewed and interpreted this examination/study. > Interpreting Provider: Jasper Sifuentes MD on 10/23/2022 9:[address] HEAD WO CONTRAST Result Date: 10/22/2022 PROCEDURE: CT HEAD WO CONTRAST, DATE/TIME OF EXAM: 10/22/2022 5:35 AM, LOCATION [facility] INDICATION: I63.511: Right middle cerebral artery [...] hemorrhage. Report dictated by Lorenzo Horta MD (resident associate). Lonnie Ornelas MD have personally reviewed and interpreted this examination/study. > Interpreting Provider: Lonnie Rae MD on 10/22/2022 3:10 PM XR CHEST 1VW PORTABLE Result Date: 10/21/2022 PROCEDURE: XR CHEST 1VW PORTABLE, DATE/TIME OF EXAM: 10/21/2022 8:53 AM, LOCATION [facility] INDICATION: R53.1: Weakness ADDITIONAL CLINICAL INFORMATION: [...] dictated by Christopher Tobin MD, MD (residential program director). HEATHER Ornelas MD have personally reviewed and [...] DATE/TIME OF EXAM: 10/20/2022 9:13 PM, LOCATION [facility] INDICATION: I63.411: Acute cerebrovascular accident (CVA) due to embolism of right middle cerebral artery (CMS/HCC) ADDITIONAL CLINICAL INFORMATION: Ordering Provider Reason For Exam: [facility] COMPARISON: Multiple prior studies, most recently CT [...] effacement, effacement of theright lateral ventricle, and dgxzp-lk-mpvk midline shift measuring up to 4 mm [...] prior. > Dictated by Bassam Jovel M.D. (resident associate) IGonzalez MD have personally reviewed and interpreted [...] Report dictated by Royer Stovall MD (residential program director). I, Amanda Prieto MD have personally reviewed [...] DATE/TIME OF EXAM: 10/19/2022 8:16 AM, LOCATION [facility] INDICATION: Code Stroke ADDITIONAL CLINICAL INFORMATION: [...] DATE/TIME OF EXAM: 10/19/2022 8:04 AM, LOCATION [facility] INDICATION: Code Stroke ADDITIONAL CLINICAL INFORMATION: [...] 360 325 BMP Recent Labs Component Name 11/10/2222211/08/22234511/07/22223311/06/22 231 NA 136 141 141 140 POTASSIUM 3.6 [...] Coag Recent Labs Component Name 11/11/22 0928 11/10/22233711/10/2222211/09/22 0237 11/07/22 0305 11/06/22 2312 11/06/22 [...] Haleigh Narayan - 11/11/2022 12:00 PM CDT [facility] Physical Medicine and Rehabilitation Occupational Therapy Splint [...] Component Name 11/10/22 2338 11/10/22 0224 11/10/22 02211/09/22 0237 11/08/22 2346 11/08/22 0254 11/07/22 2234 [...] interval not displayed. Recent Labs Component Name 11/10/2222211/08/22 2346 11/07/22 2234 NA 136 141 141 [...] > Dictated by Tim Major MD (residential program director). IAlexx have personally reviewed and interpreted this [...] Report dictated by Mc Castro MD, (residential program director). Pepe Ornelas MD have personally reviewed and [...] > Dictated by Tim Major MD (residential program director). Pepe Ornelas MD have personallyreviewed and interpreted [...] frontal gyrus/frontal operculum, consistent with an evolving cwxicaza-zy-jqddwom infarct. 4.No significant midline shift. Similar-appearing size [...] is dictated by Kayla Stevenson MD (residential program director) 1 I, Lonnie Rae MD have personally [...] is dictated by Miranda Bowen MD (residential program director) Oriana Ornelsa MD have personally reviewed and interpreted this [...] > Dictated by Clarisa Cantrell MD (residential program director). IAlexx have personally reviewed and interpreted this [...] is dictated by Miranda Bowen MD (residential program director) Joni Ornelas MD have personally reviewed and [...] right lateral ventricle, and approximately 3-4 mm khval-tz-dtti midline shift, grossly similar to the prior. [...] Report dictated by Tim Major MD (residential program director). I, Jasper Sifuentes MD have personally reviewed [...] report is dictated by Miranda Bowen MD(residential program director) Jasper Ornelas MD have personally reviewed and [...] hemorrhage. Report dictated by Lorenzo Horta MD (resident associate). Lonnie Ornelas MD have personally reviewed and [...] prior. > Dictated by Bassam Jovel M.D. (resident associate) Gonzalez Ornelas MD have personally reviewed and [...] on 10/19/2022 8:15 AM Procedure and Consults [facility] (From admission, onward) Start Ordered 11/10/22 [...] 10/28/22 0150 10/27/22 1745 IP CONSULT TO RECORDS MANAGEMENT DIRECTOR ONCE Provider: (Not yet assigned) 10/27/22 1733 [...] 10/19/22 0902 10/19/22 0900 IP CONSULT TO RECORDS MANAGEMENT DIRECTOR ONCE Provider: (Not yet assigned) 10/19/22 0902 10/19/22 0900 IP CONSULT TO CASE MANAGEMENT ONCE Provider: (Not yet assigned) 10/19/22 0902 10/19/22 0900 IP CONSULT TO NUTRITIONAL SERV ONCE Provider: (Not yet assigned) 10/19/22 0902 10/19/22 0900 CONSULT TO REHAB ONCE Provider: (Not yet assigned) 10/19/22 0902 10/19/22 0845 IR INTRACRANIAL MECH THROMBECT RAD ONE TIME 10/19/22 0843 10/19/22 0800 CONSULT TO PRODUCT SCIENTIST ONCE Provider: (Not yet assigned) 10/19/22 0756 [...] needle insertion. The externally removable 24 Fr Ramez-Fileboard gastrostomy tube was lubricated. The G-tube was [...] non-darden portions. Procedure Code(s): --- Professional --- 79672, Esophagogastroduodenoscopy, flexible, transoral; with directed placement of percutaneous gastrostomy tube Diagnosis Code(s): --- Professional --- K44.9, Diaphragmatic hernia without obstruction or gangrene K29.60, Other gastritis without bleeding R13.12, Dysphagia, oropharyngeal phase R29.818, Other symptoms and signs involving the nervous system Z43.1, Encounter for attention to gastrostomy CPT copyright 2021 [employer]. All rights reserved. The codes documented in this report are preliminary and upon orderlies teacher review may be revised to meet current compliance requirements. Khanh Metz MD 2022 3:26:58 PM Note Initiated On: 2022 2:14 PM Number of Addenda: [address] [address] 08/25/2021 Final _ Patient Name: Consuelo Darby Procedure Date: 08/25/2021 9:58 AM Date of : 1980 Admit Type: Outpatient Age: 40 Room: ROOM 1 Gender: Female Attending MD: Sathya Foster MD _ Procedure: Colonoscopy Indications: High risk colon cancer surveillance: Personal history of colonic polyps, Last colonoscopy: 2011 Providers: Sathya Foster MD, Tia Rico RN, Zeinab Marina RN, Aminata Cain, SWAGER OPERATOR (Anesthesia Staff) Medicines: Propofol per Anesthesia Complications: [...] the patient. Procedure Code(s): --- Professional --- 50633, Colonoscopy, flexible; with biopsy, single or multiple --- Technical --- 94661, Colonoscopy, flexible; with biopsy, single or multiple Diagnosis Code(s): --- Professional --- Z86.010, Personal history of colonic polyps K63.5, Polyp of colon K57.30, Diverticulosis of large intestine without perforation or abscess without bleeding --- Technical --- Z86.010, Personal history of colonic polyps K63.5, Polyp of colon K57.30, Diverticulosis of large intestine without perforation or abscess without bleeding CPT copyright 2019 [employer]. All rights reserved. The codes documented in this report are preliminary and upon orderlies teacher review may be revised to meet current [...] PGY IV Division of Gastroenterology and Hepatology [facility] Associated attestation - Carlos West MD - 11/11/2022 3:54 PM CDT I have seen and examined the patient with the Fellow and I agree with the findings and plan of careas documented by the Fellow. Continue antibiotics per ID recommendations Carlos West MD PhD diamond wheel molder Director, Division of Gastroenterology and Hepatology Co-Director, [facility] * Good Antunez MD - [...] (37.4 ??C) (!) 114 26 136/41 11/10/22 185 -- 105 21 117/69 11/10/22 184 -- [...] Wyman, PT - 11/11/2022 8:29 AM CDT [facility] Department of Physical Medicine & Rehabilitation Progress Note Patient: Consuelo Darby [facility] Record Number: [id number] Date of : 1980 Age: [age] year old 11/11/22 0829 Therapy on Hold Therapy on Hold Surgery;New Order Required for Therapy * Haleigh Narayan - 11/11/2022 8:07 AM CDT 11/11/22 0800 Therapy on Hold Therapy on Hold Surgery;New Order Required for Therapy * Shania Arce SLP - 11/11/2022 7:43 AM CDT [facility] Department of Physical Medicine & Rehabilitation Progress Note Patient: Consuelo Darby [facility] Record Number: [id number] Date of : 1980 Age: [age] year old 11/11/22 0700 Therapy on Hold Therapy on Hold Surgery;New Order Required for Therapy Barb Lopes MS [facility] [place] Speech Language Pathologist * Maicol Quiroz DO [...] Troy OT - 11/10/2022 3:30 PM CDT [facility] Physical Medicine and Rehabilitation Occupational Therapy Progress Note Patient: Consuelo Darby Med Record Number: [id number] Date of : 1980 Age: [age] year old PPE worn by staff: gloves;mask - surgical elastic knitter: Cheli Recommendations: Discharge OT Discharge Recommendations: Patient [...] Appearance: Pt in bed upon arrival in [facility], sister present in room during session. LDA: [...] splint fitting appropriately, skin integrity intact. Modified [place]: Current Modified Maryann Score: 5 AM-PAC 6 [...] with good endurance and with minimal pain Chcf Goal(s): Patient to discharge to appropriate next [...] Otoole MD - 11/10/2022 2:32 PM CDT [facility] Infectious Diseases Progress Note Admitted on: 10/19/2022 7:53 AM Hospital stay: Room: 2/ Attending: Jaime Drew MD Reason for ID consultation: Fever, culture negative infective endocarditis Brief History and Hospital Course: Consuelo Darby??is a 41 year old?female??with a past medical history significant for essential hypertension, migraine, GERD.?Patient presented to [facility] on??10/19/2022??as code stroke due to acute onset [...] LABS CBC: Recent Labs Component Name 11/10/2222311/08/226 11/07/224 10/23/22 0129 10/22/22 0153 WBC 3.6 5.2 4.7 - - RBC 3.23* 3.59* 3.18* - - HGB 9.4* 10.4* 9.2* - - HCT 29.4* 33.1* 29.5* - - MCV 91.0 92.2 92.8 - - PLT - - - - 199 - = values in this interval not displayed. BMP: Recent Labs Component Name 11/10/2222211/09/2254 11/08/22234511/07/22223310/20/22 0302 10/19/22 0824 06/15/22 0757 NA 136 [...] Cruz MD - 11/11/2022 9:42 AM CDT [facility] Infectious Diseases Attending Note Documentation Date/Time: [...] LP with CSF analysis to eval of RELATIONSHIP EXECUTIVE infection. Personally discussed with neurology team, they [...] S/p 10/20 with neurosurgery for R sided gnaudr-rpmnumx-aufnhkjh decompressive sonya-craniectomy for treatment of refractory intracranial hypertension. Transaminitis. Renal function: Estimated Creatinine Clearance: 161 mL/min (A) (by C-G formula based on SCr of 0.52mg/dL (L)). Plan/Recommendations: - Start metronidazole. Continue IV vancomycin, cefepime and doxycycline. - Follow blood cultures until final - Consider LP with CSF analysis to eval of RELATIONSHIP EXECUTIVE infection. - Monitor right groin change. If [...] HGBA1C 6.0* Recent Labs Component Name 11/10/22 0223 11/08/22 2346 11/07/22 2234 11/06/22 2312 NA 136 141 141 140 POTASSIUM 3.6 3.9 3.6 3.6 CL 105 107 108* 108* CO2 24 24 22 22 BUN 13 9 8 8 CREATININE 0.52* 0.45* 0.53* 0.46* CALCIUM 8.4 8.5 8.6 8.5 MAGNESIUM 2.0 2.0 2.8* 2.0 PHOS 3.9 3.8 4.3 4.3 Recent Labs Component Name 11/10/22 02211/08/22 2346 11/07/22 2234 11/06/22 2312 WBC 3.6 [...] Date/Time RESPIRATORY PANEL WITH SARS-COV-2 BY PCR ([facility]) [[id number]] (Normal) Collected: 11/05/22 1310 Lab Status: Final [...] via the [place] Pathway. CULTURE URINE [[id number]] (Normal) Collected: 11/05/22 1307 Lab Status: Final result Specimen: Urine Cath Straight Updated: 11/06/22 1617 Culture Urine No growth (<100 CFU/mL) CULTURE BLOOD [[id number]] (Normal) Collected: 11/05/22 1054 Lab Status: Final result Specimen: Blood Peripheral Updated: 11/10/22 1400 Culture No growth day 5 CULTURE URINE [[id number]] (Normal) Collected: 10/27/22 1208 Lab Status: Final result Specimen: Urine Clean Catch Updated: 10/28/22 2236 Culture Urine No growth (<100 CFU/mL) CULTURE BLOOD FUNGUS [[id number]] (Normal) Collected: 10/27/22 1158 Lab Status: Preliminary result Specimen: Blood Peripheral Updated: 11/06/22 0848 Culture No fungus isolated CULTURE BLOOD AFB [[id number]] (Normal) Collected: 10/27/22 1158 Lab Status: Preliminary result Specimen: Blood Peripheral Updated: 11/06/22 1135 Culture No acid-fast bacillus isolated BARTONELLA SPECIES PCR [[id number]] Collected: 10/27/22 1158 Lab Status: Final result [...] developed and its performance characteristics determined by [facility]. It has not been cleared or approved by the US Food and Drug Administration. This test was performed in a CLIA certified laboratory and is intended for clinical purposes. Performed By: [facility] [address] [place] [address] Bilingual Receptionist: Boo Bond MD, PhD CLIA Number: [id number] CULTURE BLOOD [[id number]] (Normal) Collected: 10/25/22 0900 Lab Status: Final result Specimen: Blood Peripheral Updated: 10/30/22 1330 Culture No growth day 5 CULTURE BLOOD [[id number]] (Normal) Collected: 10/24/22 1313 Lab Status: Final result Specimen: Blood Peripheral Updated: 10/29/22 1632 Culture No growth day 5 MRSA DNA PCR [[id number]] (Normal) Collected: 10/23/22 1234 Lab Status: Final result Specimen: Microbiology from Nasal Updated: 10/23/22 2044 MRSA DNA by PCR Not detected Narrative: Methicillin-resistant Staphylococcus aureus (MRSA) DNA is not detected (presumed not colonized withMRSA). CULTURE BLOOD [[id number]] (Normal) Collected: 10/23/22 1216 Lab Status: Final result Specimen: Blood Peripheral Updated: 10/28/22 1702 Culture No growth day 5 CULTURE BLOOD [[id number]] (Normal) Collected: 10/23/22 1205 Lab Status: Final [...] presence of the primary team staff, residents, PT/OT/SENIOR LITIGATION PARALEGAL and CM/SW. Jaime Drew MD Vascular and [...] Fernandes SLP - 11/10/2022 1:45 PM CDT [facility] Department of Physical Medicine & Rehabilitation Progress Note Patient: Consuelo Darby Med Record Number: [id number] Date of : 1980 Age: [age] year old 11/10/22 1300 Missed Visit Missed Visit Other (Comment) Attempted 2x to see patient for dysphagia tx, patient working with other therapy disciplines. ST will continue to follow * Maria Luisa Scott APRN-ASHOK - 11/10/2022 12:07 PM CDT Puentes Placement [...] uretheral opening 3 separate times. A 16 Wallisian Silicone puentes catheter was covered with sterile [...] for grading the difficulty in placing a punetes catheter. Please reference table below. Level Puentes [place] Sample Patient 1 Teaching Puentes (i.e. Medical student, Tech, RN) - Female without urologic history 2 Registered Nurse, Any Physician, Any Advanced Practitioner - Male >65 yo 3 Charge or Experienced Nurse, Urology SOLE MOLDING MACHINE OPERATOR, Urologist - Multiple failed attempts 4 Urologist [...] kg/m??. Serum creatinine: 0.52 mg/dL (L) 11/10/22 022 Estimated creatinine clearance: 161 mL/min (A) * Rosa Vegas, PT - 11/10/2022 10:05 AM CDT [facility] Physical Medicine and Rehabilitation Physical Therapy Progress Note Patient: Consuelo Darby Med Record Number: [id number] Date of : 1980 Age: [age] year [...] treatment using a 'yes' head nod. Patient's xbeqot-iy-lif present and provides positive encouragement to patient [...] Steady, sitting and standing balance training Modified [place]: Current Modified [place] Score: 5 AM-PAC 6 Clicks Mobility Raw [...] EOB x10 minutes with minimal assist ?? Chcf Goal(s): Patient to discharge to appropriate next [...] Rehab Facility: Anticipated level of care provider: [facility] (ALL LOCATIONS): Anticipated Discharge Date: 11/13/22: Discharge Plan: [facility] Rehab once medically ready. Orientation Level: Oriented X4: Family Support (Name and Phone): Extended Emergency Contact Information Primary Emergency Contact: Hi Darby Address: [address] [place] [address] [place] [address] [facility] Relation: Spouse Secondary Emergency Contact: Sandra Disla [facility] Mobile Relation: Mother Transportation at Discharge: [...] process within the chest. > Dictated by Tmi Major MD (residential program director). I, Alexx Lopez have personally reviewed and interpreted this examination/study. > Interpreting Provider: Alexx Lopez on 11/07/2022 10:30 PM XR ABDOMEN KUB PORTABLE Result Date: 11/06/2022 IMPRESSION: Non-obstructive bowel gas pattern. Report dictated by Mc Castro MD, (residential program director). I, Pepe Gonzalez MD have personally reviewed [...] to rule out progression April Quintana MD Oxyacetylene Welderdiamond wheel molder at [facility] Field Property Loss Specialist and Advanced Endoscopist Division of Gastroenterology & [...] arrival patient noted to janete Amy florez plasberonica, L hemainopsia, mild dysarthria, and extinction. NIHSS: [...] interval not displayed. Recent Labs Component Name 11/10/2222211/08/22 23411/07/22 2234 NA 136 141 141 CL 105 107 108* CO2 24 24 22 BUN 13 9 8 CREATININE 0.52* 0.45* 0.53* CALCIUM 8.4 8.5 8.6 No results for input(s): MG in the last 01273 hours. Recent Labs Component Name 11/10/2222211/08/22234511/07/22 2234 [...] results for input(s): A1C in the last 38400 hours. Recent Labs Component Name 10/20/22 0302 06/15/22 0757 CHOL 173 204* HDL 42 37* LDLCALC 91 117* TRIG 201* 251* Recent Labs Component Name 11/06/22 0136 TSH 1.682 No results for input(s): CKMB, CKTOTAL, CKMB, TROPONINI, BNP in the last [address] ABDOMEN PELVIS W CONTRAST Result [...] DATE/TIME OF EXAM: 11/07/2022 5:25 PM, LOCATION [facility] INDICATION: R50.9: Fever, unspecified fever cause [...] > Dictated by Tim Major MD (residential program director). I, Alexx Lopez have personally reviewed and [...] Time to Reperfusion: 9:54 Final TICI: 2b Juvenile Officer: Dr. Mitali Walter Track Fitter(s): Isak Monte Vessels: Ultrasound Guided Access of Femoral Artery Ultrasound Guided Access of Radial Artery Arterial line placement in the right radial artery Right Common Carotid Artery Angiogram: Cerebral Intracranial Catheterization Mechanical Thrombectomy with Retrievable Stent and Reperfusion Catheter Angiography Through the Existing Catheter Right Femoral Artery Angiogram Anesthesia: General Anesthesia was performed and monitored by an attending Anesthesiologist and their food trades assistants throughout the entirety of the case [...] artery demonstrated a patent vessel. A 5 tuvaluan sheath was placed in the radial artery [...] Following a series of exchanges, a 8 Wallisian sheath sheath was placed in the right femoralartery. A Guide and a 6 Wallisian Penumbra Select Serrano 2 catheter along with [...] system. Hemostasis was achieved using a 8 Wallisian Angio-Seal closure device. Hemostasis was immediate at [...] DATE/TIME OF EXAM: 11/05/2022 5:28 PM, LOCATION [facility] INDICATION: R50.9: Fever, unspecified fever cause [...] Report dictated by Mc Castro MD, (residential program director). Pepe Ornelas MD have personally reviewed and [...] DATE/TIME OF EXAM: 11/05/2022 9:38 AM, LOCATION [facility] INDICATION: R50.9: Fever, unspecified fever cause ADDITIONAL CLINICAL INFORMATION: Ordering Provider Reason For Exam: consolidation COMPARISON: Chest radiograph 10/29/2022. FINDINGS/IMPRESSION: Previously seen feeding tube has been removed. These no confluent consolidation, pleural effusion, or pneumothorax is noted. The cardiomediastinal silhouette is stable. No acute osseous abnormality is noted. Report dictated by Christopher Tboin MD, MD (residential program director). I, HEATHER FREGOSO MD have personally reviewed and interpreted this examination/study. > Interpreting Provider: HEATHER FREGOSO MD on 11/05/2022 2:[address] ABDOMEN WO CONTRAST Result Date: 11/02/2022 PROCEDURE: CT ABDOMEN WO CONTRAST, DATE/TIME OF EXAM: 2022 6:47 PM, LOCATION [facility] INDICATION: Z93.1: Presence of externally removable [...] > Dictated by Tim Major MD (residential program director). I, Pepe Gonzalez MD have personallyreviewed and interpreted this examination/study. > Interpreting Provider: Pepe Gonzalez MD on 11/02/2022 1:[address] ABDOMEN PELVIS W CONTRAST Result Date: 10/31/2022 PROCEDURE: CT ABDOMEN PELVIS W CONTRAST, DATE/TIME OF EXAM: 10/31/2022 10:16 AM, LOCATION [facility] INDICATION: I33.0: Aortic valve vegetation ADDITIONAL [...] DATE/TIME OF EXAM: 10/30/2022 8:22 PM, LOCATION: [facility] HISTORY: I63.511: Right middle cerebral artery [...] frontal gyrus/frontal operculum, consistent with an evolving ufdqnkkv-po-uzubrkz infarct. 4.No significant midline shift. Similar-appearing size and configuration of the ventricles without evidence of hydrocephalus. Basal cisterns are patent. 5.No other convincing change. Partially imaged left nasoenteric tube. > Interpreting Provider: Amanda Real MD, PhD on 10/31/2022 1:26 AM [facility] ANGIO TEAM Result Date: 10/30/2022 Fluoroscopy was used for this exam in the OR. Please see the Operative report. XR CHEST 1VW PORTABLE Result Date: 10/29/2022 PROCEDURE: XR CHEST 1VW PORTABLE, DATE/TIME OF EXAM: 10/29/2022 10:29 AM, LOCATION [facility] INDICATION: R09.02: Hypoxia ADDITIONAL CLINICAL INFORMATION: Ordering Provider Reason For Exam: evaluate for hypoxia COMPARISON: Chest x-ray from 10/27/2022 FINDINGS/IMPRESSION: Enteric tube is seen coursing over the diaphragm without visualization of the distal tip. There is no focal consolidation, pleural effusion, or pneumothorax. The cardiomediastinal silhouette is normal. Report dictated by Jacques Russell DO (residential program director). I, Jacques Cole DO have personally reviewedand interpreted this examination/study. 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 Report dictated by Jacques Russell DO (residential program director). Jacques Ornelas DO have personally reviewed and interpreted this examination/study. 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 FINDINGS/IMPRESSION: Enteric tube courses below the diaphragm with the distal tip superimposing the antropyloric region. Report dictated by Martell Shetty MD (residential program director). Jacques Ornelas DO have personally reviewed and interpreted this examination/study. > Interpreting Provider: Jacques Cole DO on 10/28/2022 12:[address] HEAD WO CONTRAST Result Date: 10/28/2022 PROCEDURE: CT HEAD WO CONTRAST, DATE/TIME OF EXAM: 10/28/2022 5:28 AM, LOCATION [facility] INDICATION: Z91.89: At high risk for [...] is dictated by Kayla Stevenson MD (residential program director) 1 I, Lonnie Rae MD have personally reviewed and interpreted this examination/study. > Interpreting Provider: Lonnie Rae MD on 10/28/2022 9:15 AM XR CHEST 1VW PORTABLE Result Date: 10/27/2022 PROCEDURE: XR CHEST 1VW PORTABLE, DATE/TIME OF EXAM: 10/27/2022 10:19 AM, LOCATION [facility] INDICATION: D72.829: Leukocytosis, unspecified type ADDITIONAL CLINICAL INFORMATION: Ordering Provider Reason For Exam: any concern for pneumonia COMPARISON: Chest radiograph dated 10/25/2022. FINDINGS/IMPRESSION: Enteric tube courses below the diaphragm and out of the tdcob-pp-lzpn. RUQ surgical clips are present. No focal consolidation. No pleural effusion or pneumothorax. The cardiomediastinal silhouette is normal. Report dictated by Agnes Olmos DO (residential program director). Pepe Ornelas MD have personally reviewed and interpreted this examination/study. 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 Enteric tube courses below the diaphragm and out of the krwfw-gv-idmu. There is severe left rotation of the patient in this study. There is no focal consolidation, pleural effusion, or pneumothorax. The left upper lobe pulmonary nodule noted on chest CT from same day is not visualized on this plain film. The cardiomediastinal silhouette is normal. The visible bony thorax is intact. Report dictated by Royer Stovall MD (residential program director). I, Alexx Lopez have personally reviewed and interpreted this examination/study. > Interpreting Provider: Alexx Lopez on 10/26/2022 2:[address] HEAD WO CONTRAST Result Date: 10/26/2022 PROCEDURE: CT HEAD WO CONTRAST, DATE/TIME OF EXAM: 10/26/2022 4:55 AM, LOCATION [facility] INDICATION: I63.511: Right middle cerebral artery [...] is dictated by Miranda Bowen MD (residential program director) IOriana MD have personally reviewed and interpreted this examination/study. > Interpreting Provider: Oriana Suarez MD on 38:[address] CHEST ABDOMEN PELVIS W CONT Result Date: 10/25/2022 PROCEDURE: CT CHEST ABDOMEN PELVIS W CONT, DATE/TIME OF EXAM: 10/25/2022 12:56 PM, LOCATION [facility] INDICATION: I63.511: Right middle cerebral artery [...] > Dictated by Clarisa Cantrell MD (residential program director). I, Alexx Lopez have personally reviewed and interpreted this examination/study. > Interpreting Provider: Alexx Lopez on 10/25/2022 4:[address] HEAD WO CONTRAST Result Date: 10/25/2022 PROCEDURE: CT HEAD WO CONTRAST, DATE/TIME OF EXAM: 10/25/2022 12:56 PM, LOCATION [facility] INDICATION: I63.511: Right middle [...] is dictated by Miranda Bowen MD (residential program director) I, Joni Fabian MD have personally reviewed and interpreted this examination/study. > Interpreting Provider: Joni Fabian MD on 10/25/2022 2:[address] CARDIAC ANGIO STRUCT MORPH Result Date: 10/25/2022 PROCEDURE: CT CARDIAC ANGIO STRUCT MORPH, DATE/TIME OF EXAM: 10/23/2022 3:08 PM, LOCATION [facility] INDICATION: I63.411: Acute cerebrovascular accident (CVA) [...] DATE/TIME OF EXAM: 10/24/2022 2:04 PM, LOCATION [facility] INDICATION: R47.1: Dysarthria ADDITIONAL CLINICAL INFORMATION: Ordering Provider ReasonFor Exam: ngt placement COMPARISON: Portable KUB dated 10/23/2022 FINDINGS/IMPRESSION: The enteric tube courses below the diaphragm with tip superimposing the gastric pyloric region. Drafted by Agnes Olmos DO (residential program director). I, Vanessa Kumar MD have personally reviewed and interpreted this examination/study. > Interpreting Provider: Vanessa Kumar MD on 10/24/2022 2:17 PM MRI BRAIN WWO CONTRAST Result Date: 10/24/2022 PROCEDURE: MRI BRAIN WWO CONTRAST, DATE/TIME OF EXAM: 10/24/2022 10:56 AM, LOCATION [facility] INDICATION: I63.411: Acute cerebrovascular accident (CVA) [...] right lateral ventricle, and approximately 3-4 mm xwvgr-ws-gfum midline shift at the level of the [...] right lateral ventricle, and approximately 3-4 mm jfxka-tp-nnee midline shift, grossly similar to the prior. [...] Report dictated by Tim Major MD (residential program director). Jasper Ornelas MD have personally reviewed and interpreted this examination/study. 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 Endotracheal tube terminates in the midthoracic trachea. There is no focal consolidation. No pleural effusion or pneumothorax. The cardiomediastinal silhouette is normal. No acute osseous abnormality. Report dictated by Agnes Olmos DO (residential program director). Vanessa Ornelas MD have personally reviewed and [...] DATE/TIME OF EXAM: 10/23/2022 1:53 PM, LOCATION [facility] INDICATION: R47.1: Dysarthria ADDITIONAL CLINICAL INFORMATION: Ordering Provider ReasonFor Exam: NGT placement COMPARISON: Portable KUB dated 10/20/2022 FINDINGS/IMPRESSION: The enteric tube courses below the diaphragm with tip superimposing the stomach. Drafted by Agnes Olmos DO (residential program director). I, Vanessa Kumar MD have personally reviewed and interpreted this examination/study. > Interpreting Provider: Vanessa Kumar MD on 10/24/2022 8:[address] HEAD WO CONTRAST Result Date: 10/23/2022 PROCEDURE: CT HEAD WO CONTRAST, DATE/TIME OF EXAM: 10/23/2022 5:53 AM, LOCATION [facility] INDICATION: I63.511: Right middle cerebral artery [...] report is dictated by Miranda Bowen MD(residential program director) IJasper MD have personally reviewed and interpreted this examination/study. > Interpreting Provider: Jasper Sifuentes MD on 10/23/2022 9:[address] HEAD WO CONTRAST Result Date: 10/22/2022 PROCEDURE: CT HEAD WO CONTRAST, DATE/TIME OF EXAM: 10/22/2022 5:35 AM, LOCATION [facility] INDICATION: I63.511: Right middle cerebral artery [...] hemorrhage. Report dictated by Lorenzo Horta MD (resident associate). I, Lonnie Rae MD have personally reviewed and interpreted this examination/study. > Interpreting Provider: Lonnie Rae MD on 10/22/2022 3:10 PM XR CHEST 1VW PORTABLE Result Date: 10/21/2022 PROCEDURE: XR CHEST 1VW PORTABLE, DATE/TIME OF EXAM: 10/21/2022 8:53 AM, LOCATION [facility] INDICATION: R53.1: Weakness ADDITIONAL CLINICAL INFORMATION: [...] dictated by Christopher Tobin MD, MD (residential program director). I, HEATHER FREGOSO MD have personally reviewed [...] DATE/TIME OF EXAM: 10/20/2022 9:13 PM, LOCATION [facility] INDICATION: I63.411: Acute cerebrovascular accident (CVA) due to embolism of right middle cerebral artery (CMS/HCC) ADDITIONAL CLINICAL INFORMATION: Ordering Provider Reason For Exam: [facility] COMPARISON: Multiple prior studies, most recently CT [...] effacement, effacement of theright lateral ventricle, and xaddg-zn-utdx midline shift measuring up to 4 mm [...] prior. > Dictated by Bassam Jovel M.D. (resident associate) Gonzalez Ornelas MD have personally reviewed and [...] Report dictated by Royer Stovall MD (residential program director). Amanda Ornelas MD have personally reviewed and [...] DATE/TIME OF EXAM: 10/19/2022 8:16 AM, LOCATION [facility] INDICATION: Code Stroke ADDITIONAL CLINICAL INFORMATION: [...] DATE/TIME OF EXAM: 10/19/2022 8:04 AM, LOCATION [facility] INDICATION: Code Stroke ADDITIONAL CLINICAL INFORMATION: [...] Hypertension:??no Hyperlipidemia:??no Diabetes:??no Atrial Fibrillation:??no Tobacco:??no ?? Haroon,liane updated this morning. Case findings discussed with [...] HGBA1C 6.0* Recent Labs Component Name 11/08/22 23411/07/22223311/06/22 23111/06/22 0136 NA 141 141 140 139 POTASSIUM 3.9 3.6 3.6 3.5 CL 107 108* 108* 111* CO2 24 22 22 21* BUN 9 8 8 8 CREATININE 0.45* 0.53* 0.46* 0.56 CALCIUM 8.5 8.6 8.5 8.3* MAGNESIUM 2.0 2.8* 2.0 2.0 PHOS 3.8 4.3 4.3 3.6 Recent Labs Component Name 11/08/22 23411/07/22223311/06/22231111/06/22 0136 WBC 5.2 4.7 4.7 6.5 7.9 [...] RESPIRATORY PANEL WITH SARS-COV-2 BY PCR (STL) [[id number]] (Normal) Collected: 11/05/22 1310 Lab Status: Final [...] via the [place] Pathway. CULTURE URINE [[id number]] (Normal) Collected: 11/05/22 1307 Lab Status: Final result Specimen: Urine Cath Straight Updated: 11/06/22 1617 Culture Urine No growth (<100 CFU/mL) CULTURE BLOOD [[id number]] (Normal) Collected: 11/05/22 1054 Lab Status: Preliminary result Specimen: Blood Peripheral Updated: 11/07/22 1401 Culture No growth CULTURE URINE [[id number]] (Normal) Collected: 10/27/22 1208 Lab Status: Final result Specimen: Urine Clean Catch Updated: 10/28/22 2236 Culture Urine No growth (<100 CFU/mL) CULTURE BLOOD FUNGUS [[id number]] (Normal) Collected: 10/27/22 1158 Lab Status: Preliminary result Specimen: Blood Peripheral Updated: 11/06/22 0848 Culture No fungus isolated CULTURE BLOOD AFB [[id number]] (Normal) Collected: 10/27/22 1158 Lab Status: Preliminary result Specimen: Blood Peripheral Updated: 11/06/22 1135 Culture No acid-fast bacillus isolated BARTONELLA SPECIES PCR [[id number]] Collected: 10/27/22 1158 Lab Status: Final result [...] developed and its performance characteristics determined by [facility]. It has not been cleared or approved by the US Food and Drug Administration. This test was performed in a CLIA certified laboratory and is intended for clinical purposes. Performed By: [facility] [address] [place] [address] Bilingual Receptionist: Boo Bond MD, PhD CLIA Number: [id number] CULTURE BLOOD [[id number]] (Normal) Collected: 10/25/22 0900 Lab Status: Final result Specimen: Blood Peripheral Updated: 10/30/22 1330 Culture No growth day 5 CULTURE BLOOD [[id number]] (Normal) Collected: 10/24/22 1313 Lab Status: Final result Specimen: Blood Peripheral Updated: 10/29/22 1632 Culture No growth day 5 MRSA DNA PCR [[id number]] (Normal) Collected: 10/23/22 1234 Lab Status: Final result Specimen: Microbiology from Nasal Updated: 10/23/22 2044 MRSA DNA by PCR Not detected Narrative: Methicillin-resistant Staphylococcus aureus (MRSA) DNA is not detected (presumed not colonized withMRSA). CULTURE BLOOD [[id number]] (Normal) Collected: 10/23/22 1216 Lab Status: Final result Specimen: Blood Peripheral Updated: 10/28/22 1702 Culture No growth day 5 CULTURE BLOOD [[id number]] (Normal) Collected: 10/23/22 1205 Lab Status: Final [...] presence of the primary team staff, residents, PT/OT/SENIOR LITIGATION PARALEGAL and CM/SW. Jaime Drew MD Vascular and [...] displayed. Recent Labs Component Name 11/08/22 2346 11/07/22 2234 11/06/22 2312 NA 141 141 140 CL 107 108* 108* CO2 24 22 22 BUN 9 8 8 CREATININE 0.45* 0.53* 0.46* CALCIUM 8.5 8.6 8.5 No results for input(s): MG in the last 54275 hours. Recent Labs Component Name 11/08/22 2346 11/07/22 2234 11/06/22 2312 PHOS 3.8 4.3 4.3 Recent Labs Component Name 11/09/22 0237 11/08/22 0254 11/07/22 0305 11/06/22 2312 11/06/22 1830 11/06/22 0740 PT 18.9* 18.3* 18.4* - - - INR 1.6 1.6 1.6 - - - PTT - - - 63.4* 68.6* 97.1* No results for input(s): A1C in the last 17665 hours. Recent Labs Component Name 10/20/22 0302 06/15/22 0757 CHOL 173 204* HDL 42 37* LDLCALC 91 117* TRIG 201* 251* Recent Labs Component Name 11/06/22 0136 TSH 1.682 No results for input(s): CKMB, CKTOTAL, CKMB, TROPONINI, BNP in the last [address] ANGIO CHEST PULM EMBOLISM Result Date: 11/07/2022 PROCEDURE: CT ANGIO CHEST PULM EMBOLISM, DATE/TIME OF EXAM: 11/07/2022 5:25 PM, LOCATION [facility] INDICATION: R50.9: Fever, unspecified fever cause [...] > Dictated by Tim Major MD (residential program director). I, Alexx Lopez have personally reviewed and [...] Time to Reperfusion: 9:54 Final TICI: 2b Juvenile Officer: Dr. Mitali Walter Track Fitter(s): Isak Monte Vessels: Ultrasound Guided Access of Femoral Artery Ultrasound Guided Access of Radial Artery Arterial line placement in the right radial artery Right Common Carotid Artery Angiogram: Cerebral Intracranial Catheterization Mechanical Thrombectomy with Retrievable Stent and Reperfusion Catheter Angiography Through the Existing Catheter Right Femoral Artery Angiogram Anesthesia: General Anesthesia was performed and monitored by an attending Anesthesiologist and their food trades assistants throughout the entirety of the case [...] artery demonstrated a patent vessel. A 5 tuvaluan sheath was placed in the radial artery [...] Following a series of exchanges, a 8 Wallisian sheath sheath was placed in the right femoralartery. A Guide and a 6 Wallisian Penumbra Select Serrano 2 catheter along with [...] system. Hemostasis was achieved using a 8 Wallisian Angio-Seal closure device. Hemostasis was immediate at [...] DATE/TIME OF EXAM: 11/05/2022 5:28 PM, LOCATION [facility] INDICATION: R50.9: Fever, unspecified fever cause [...] Report dictated by Mc Castro MD, (residential program director). I, Pepe Gonzalez MD have personally reviewed [...] DATE/TIME OF EXAM: 11/05/2022 9:38 AM, LOCATION [facility] INDICATION: R50.9: Fever, unspecified fever cause ADDITIONAL CLINICAL INFORMATION: Ordering Provider Reason For Exam: consolidation COMPARISON: Chest radiograph 10/29/2022. FINDINGS/IMPRESSION: Previously seen feeding tube has been removed. These no confluent consolidation, pleural effusion, or pneumothorax is noted. The cardiomediastinal silhouette is stable. No acute osseous abnormality is noted. Report dictated by Christopher Tobin MD, MD (residential program director). I, HEATHER FREGOSO MD have personally reviewed and interpreted this examination/study. > Interpreting Provider: HEATHER FREGOSO MD on 11/05/2022 2:[address] ABDOMEN WO CONTRAST Result Date: 11/02/2022 PROCEDURE: CT ABDOMEN WO CONTRAST, DATE/TIME OF EXAM: 2022 6:47 PM, LOCATION [facility] INDICATION: Z93.1: Presence of externally removable [...] as clinically queried.. > Dictated by Tim Majro MD (residential program director). I, Pepe Gonzalez MD have personallyreviewed and interpreted this examination/study. > Interpreting Provider: Pepe Gonzalez MD on 11/02/2022 1:[address] ABDOMEN PELVIS W CONTRAST Result Date: 10/31/2022 PROCEDURE: CT ABDOMEN PELVIS W CONTRAST, DATE/TIME OF EXAM: 10/31/2022 10:16 AM, LOCATION [facility] INDICATION: I33.0: Aortic valve vegetation ADDITIONAL [...] DATE/TIME OF EXAM: 10/30/2022 8:22 PM, LOCATION: [facility] HISTORY: I63.511: Right middle cerebral artery [...] frontal gyrus/frontal operculum, consistent with an evolving prcqaqfu-nc-vjkzgax infarct. 4.No significant midline shift. Similar-appearing size [...] DATE/TIME OF EXAM: 10/29/2022 10:29 AM, LOCATION [facility] INDICATION: R09.02: Hypoxia ADDITIONAL CLINICAL INFORMATION: Ordering Provider Reason For Exam: evaluate for hypoxia COMPARISON: Chest x-ray from 10/27/2022 FINDINGS/IMPRESSION: Enteric tube is seen coursing over the diaphragm without visualization of the distal tip. There is no focal consolidation, pleural effusion, or pneumothorax. The cardiomediastinal silhouette is normal. Report dictated by Jacques Russell DO (residential program director). Jacques Ornelas DO have personally reviewed and interpreted this examination/study. 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 Report dictated by Jacques Russell DO (residential program director). Jacques Ornelas DO have personally reviewed and interpreted this examination/study. 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 FINDINGS/IMPRESSION: Enteric tube courses below the diaphragm with the distal tip superimposing the antropyloric region. Report dictated by Martell Shetty MD (residential program director). I, Jacques Cole DO have personally reviewed and interpreted this examination/study. > Interpreting Provider: Jacques Cole DO on 10/28/2022 12:[address] HEAD WO CONTRAST Result Date: 10/28/2022 PROCEDURE: CT HEAD WO CONTRAST, DATE/TIME OF EXAM: 10/28/2022 5:28 AM, LOCATION [facility] INDICATION: Z91.89: At high risk for [...] is dictated by Kayla Stevenson MD (residential program director) 1 Lonnie Ornelas MD have personally reviewed and interpreted this examination/study. > Interpreting Provider: Lonnie Rae MD on 10/28/2022 9:15 AM XR CHEST 1VW PORTABLE Result Date: 10/27/2022 PROCEDURE: XR CHEST 1VW PORTABLE, DATE/TIME OF EXAM: 10/27/2022 10:19 AM, LOCATION [facility] INDICATION: D72.829: Leukocytosis, unspecified type ADDITIONAL CLINICAL INFORMATION: Ordering Provider Reason For Exam: any concern for pneumonia COMPARISON: Chest radiograph dated 10/25/2022. FINDINGS/IMPRESSION: Enteric tube courses below the diaphragm and out of the gcjzd-qq-tdwd. RUQ surgical clips are present. No focal consolidation. No pleural effusion or pneumothorax. The cardiomediastinal silhouette is normal. Report dictated by Agnes Olmos DO (residential program director). IPepe MD have personally reviewed and interpreted this examination/study. 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 Enteric tube courses below the diaphragm and out of the jjumu-dt-aowi. There is severe left rotation of the patient in this study. There is no focal consolidation, pleural effusion, or pneumothorax. The left upper lobe pulmonary nodule noted on chest CT from same day is not visualized on this plain film. The cardiomediastinal silhouette is normal. The visible bony thorax is intact. Report dictated by Royer Stovall MD (residential program director). Alexx Ornelas have personally reviewed and interpreted this examination/study. > Interpreting Provider: Alexx Lopez on 10/26/2022 2:[address] HEAD WO CONTRAST Result Date: 10/26/2022 PROCEDURE: CT HEAD WO CONTRAST, DATE/TIME OF EXAM: 10/26/2022 4:55 AM, LOCATION [facility] INDICATION: I63.511: Right middle cerebral artery [...] is dictated by Miranda Bowen MD (residential program director) I, Oriana Suarez MD have personally reviewed and interpreted this examination/study. > Interpreting Provider: Oriana Suarez MD on 38:[address] CHEST ABDOMEN PELVIS W CONT Result Date: 10/25/2022 PROCEDURE: CT CHEST ABDOMEN PELVIS W CONT, DATE/TIME OF EXAM: 10/25/2022 12:56 PM, LOCATION [facility] INDICATION: I63.511: Right middle cerebral artery [...] > Dictated by Clarisa Cantrell MD (residential program director). I, Alexx Lopez have personally reviewed and interpreted this examination/study. > Interpreting Provider: Alexx Lopez on 10/25/2022 4:[address] HEAD WO CONTRAST Result Date: 10/25/2022 PROCEDURE: CT HEAD WO CONTRAST, DATE/TIME OF EXAM: 10/25/2022 12:56 PM, LOCATION [facility] INDICATION: I63.511: Right middle [...] is dictated by Miranda Bowen MD (residential program director) I, Joni Fabian MD have personally reviewed and interpreted this examination/study. > Interpreting Provider: Joni Fabian MD on 10/25/2022 2:[address] CARDIAC ANGIO STRUCT MORPH Result Date: 10/25/2022 PROCEDURE: CT CARDIAC ANGIO STRUCT MORPH, DATE/TIME OF EXAM: 10/23/2022 3:08 PM, LOCATION [facility] INDICATION: I63.411: Acute cerebrovascular accident (CVA) [...] DATE/TIME OF EXAM: 10/24/2022 2:04 PM, LOCATION [facility] INDICATION: R47.1: Dysarthria ADDITIONAL CLINICAL INFORMATION: Ordering Provider ReasonFor Exam: ngt placement COMPARISON: Portable KUB dated 10/23/2022 FINDINGS/IMPRESSION: The enteric tube courses below the diaphragm with tip superimposing the gastric pyloric region. Drafted by Agnes Olmos DO (residential program director). I, Vanessa Kumar MD have personally reviewed and interpreted this examination/study. > Interpreting Provider: Vanessa Kumar MD on 10/24/2022 2:17 PM MRI BRAIN WWO CONTRAST Result Date: 10/24/2022 PROCEDURE: MRI BRAIN WWO CONTRAST, DATE/TIME OF EXAM: 10/24/2022 10:56 AM, LOCATION [facility] INDICATION: I63.411: Acute cerebrovascular accident (CVA) [...] expected interval evolution of the previously seen pos tsurgical changes along the craniectomy site. Redemonstration of extra-axial collection along the craniectomy site containing extra-axial blood products and fluid, measuring approximately 2.4 cm in thickness, (series 9, image 13), previously measured approximately 2.5 cm, grossly unchanged from prior. Interval resolution/redistribution of the previously seen foci of pneumocephalus compared to theprior CT. Interval removal of the previously seen [...] right lateral ventricle, and approximately 3-4 mm fxvcb-dv-vxrd midline shift at the level ofthe foramen of Monro, (series 13, image 18),, previously measured approximately 3 mm, (series 6, image 35), when remeasured, grossly similar to the prior. Extensive susceptibility artifacts along thecraniectomy site compatible with expected postsurgical changes. There are additional scattered fociof restricted diffusion in the left frontoparietal region, [...] The basal cisterns are mildly effaced. The r emaining ventricles are of normal size, shape, and morphology. Diffuse leptomeningeal enhancement along the right frontotemporoparietal infarcted area compatible with expected reactive changes. No enhancing lesions are otherwise identified. The corpus callosum and sella appear normal. The posteriorfossa, brainstem, and craniocervical junction appear grossly stable. The visualized portions of theorbits appear grossly unremarkable. There is mild paranasal sinus disease. There is suspected minimal opacification in the right mastoid air cells. The remaining mastoid air cells appear grossly clear. Normal flow voids are demonstrated in the carotid arteries and basilar artery. The calvarium and v isualized cervical spine otherwise appear normal. IMPRESSION: 1.Redemonstration of postoperative changes of a right hemicraniectomy with expected postsurgical changes as outlined above. 2.Redemonstration of evolving large right MCA territory infarction with extensive cytotoxic edema and mild external herniation of the brain through the craniectomydefect. Persistent local mass effect on the right cerebral hemisphere, effacement of the right lateral ventricle, and approximately 3-4 mm kdpsa-jm-sfjf midline shift, grossly similar to the prior. [...] Report dictated by Tim Major MD (residential program director). IJasper MD have personally reviewed and interpreted this examination/study. 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 Endotracheal tube terminates in the midthoracic trachea. There is no focal consolidation. No pleural effusion or pneumothorax. The cardiomediastinal silhouette is normal. No acute osseous abnormality. Report dictated by Agnes Olmos DO (residential program director). I, Vanessa Kumar MD have personally reviewed [...] DATE/TIME OF EXAM: 10/23/2022 1:53 PM, LOCATION [facility] INDICATION: R47.1: Dysarthria ADDITIONAL CLINICAL INFORMATION: Ordering Provider ReasonFor Exam: NGT placement COMPARISON: Portable KUB dated 10/20/2022 FINDINGS/IMPRESSION: The enteric tube courses below the diaphragm with tip superimposing the stomach. Drafted by Agnes Olmos DO (residential program director). I, Vanessa Kumar MD have personally reviewed and interpreted this examination/study. > Interpreting Provider: Vanessa Kumar MD on 10/24/2022 8:[address] HEAD WO CONTRAST Result Date: 10/23/2022 PROCEDURE: CT HEAD WO CONTRAST, DATE/TIME OF EXAM: 10/23/2022 5:53 AM, LOCATION [facility] INDICATION: I63.511: Right middle cerebral artery [...] report is dictated by Miranda Bowen MD(residential program director) Jasper Ornelas MD have personally reviewed and interpreted this examination/study. > Interpreting Provider: Jasper Sifuentes MD on 10/23/2022 9:[address] HEAD WO CONTRAST Result Date: 10/22/2022 PROCEDURE: CT HEAD WO CONTRAST, DATE/TIME OF EXAM: 10/22/2022 5:35 AM, LOCATION [facility] INDICATION: I63.511: Right middle cerebral artery [...] hemorrhage. Report dictated by Lorenzo Horta MD (resident associate). I, Lonnie Rae MD have personally reviewed and interpreted this examination/study. > Interpreting Provider: Lonnie Rae MD on 10/22/2022 3:10 PM XR CHEST 1VW PORTABLE Result Date: 10/21/2022 PROCEDURE: XR CHEST 1VW PORTABLE, DATE/TIME OF EXAM: 10/21/2022 8:53 AM, LOCATION [facility] INDICATION: R53.1: Weakness ADDITIONAL CLINICAL INFORMATION: [...] dictated by Christopher Tobin MD, MD (residential program director). I, HEATHER FREGOSO MD have personally reviewed [...] DATE/TIME OF EXAM: 10/20/2022 9:13 PM, LOCATION [facility] INDICATION: I63.411: Acute cerebrovascular accident (CVA) due to embolism of right middle cerebral artery (CMS/HCC) ADDITIONAL CLINICAL INFORMATION: Ordering Provider Reason For Exam: [facility] COMPARISON: Multiple prior studies, most recently CT [...] effacement, effacement of theright lateral ventricle, and zbmjp-fi-cjbg midline shift measuring up to 4 mm [...] prior. > Dictated by Bassam Jovel M.D. (resident associate) Gonzalez Ornelas MD have personally reviewed and [...] Report dictated by Royer Stovall MD (residential program director). Amanda Ornelas MD have personally reviewed and [...] DATE/TIME OF EXAM: 10/19/2022 8:16 AM, LOCATION [facility] INDICATION: Code Stroke ADDITIONAL CLINICAL INFORMATION: [...] DATE/TIME OF EXAM: 10/19/2022 8:04 AM, LOCATION [facility] INDICATION: Code Stroke ADDITIONAL CLINICAL INFORMATION: [...] hours 4. Warfarin education completed on 11/06. Shaina Jha, PharmD Subjective/Objective Consuelo Darby is a [...] needed. Shania Jha, PharmD 1:28 PM 11/09/2022 [facility] Vancomycin Guideline SUBJECTIVE/OBJECTIVE Consuelo Darby is a [...] 8 WBC 5.2 4.7 4.7 6.5 7.9 @[id number]@ Dialysis Orders (72h ago, onward) None Radiocontrast [...] [place], OT - 11/09/2022 1:03 PM CDT [facility] Physical Medicine and Rehabilitation Occupational Therapy Progress Note Patient: Consuelo Darby Med Record Number: [id number] Date of : 1980 Age: [age] year old PPE worn by staff: gloves;mask - surgical elastic knitter: Cheli Recommendations: Discharge OT Discharge Recommendations: Patient [...] Appearance: Pt in bed upon arrival in [facility], two family members present in room during [...] with good endurance and with minimal pain Special Collections Librarian Goal(s): Patient to discharge to appropriate next [...] [place], PT - 11/09/2022 10:30 AM CDT [facility] Physical Medicine and Rehabilitation Physical Therapy Progress Note Patient: Consuelo Darby Med Record Number: [id number] Date of : 1980 Age: [age] year [...] and with no alarm; family member and AMBROSE Zambrano present General Appearance: Adult female, in NAD; [...] monitoring of vitals Modified Maryann: Current Modified [place] Score: 5 AM-PAC 6 Clicks Mobility Raw [...] EOB x10 minutes with minimal assist ?? Special Collections Librarian Goal(s): Patient to discharge to appropriate next [...] day multidisciplinary inpatient therapies Discharge Facility Information: [facility] Anticipated level of care at discharge: Acute Rehab Facility: Anticipated level of care provider: [facility] (ALL LOCATIONS): Anticipated Discharge Date: 11/10/22: Orientation Level: Oriented X4: Family Support (Name and Phone): Extended Emergency Contact Information Primary Emergency Contact: Hi Darby Address: [address] [place] [address] [place] [address] [facility] Relation: Spouse Secondary Emergency Contact: Sandra Disla [facility] Mobile Relation: Mother Transportation at Discharge: Ambulance: READMISSION RISK SCORE is 16 at 9:12 AM 11/09/2022.: Name: Anita Richards * Alhaji Otoole MD - 11/09/2022 8:33 AM CDT [facility] Infectious Diseases Progress Note Admitted on: 10/19/2022 7:53 AM Hospital stay: Room: [facility] Attending: Jaime Drew MD Reason for ID consultation: Fever, culture negative infective endocarditis Brief History and Hospital Course: Consuelo Darby??is a 41 year old?female??with a past medical history significant for essential hypertension, migraine, GERD.?Patient presented to [facility] on??10/19/2022??as code stroke due to acute onset [...] started having a high grade fever on 8/25 so ID is re-consulted.??Now on Van, Cefepime [...] Recent Labs Component Name 11/08/22 2346 11/07/224 11/06/22231110/23/22 0129 10/22/22 0153 WBC 5.2 4.7 4.7 - - RBC 3.59* 3.18* 3.20* - - HGB 10.4* 9.2* 9.3* - - HCT 33.1* 29.5* 29.5* - - MCV 92.2 92.8 92.2 - - PLT - - - - 199 - = values in this interval not displayed. BMP: Recent Labs Component Name 11/09/22 0654 11/08/22 2346 11/07/22223311/06/222 10/20/22 0302 10/19/22 0824 06/15/22 0757 NA [...] Cruz MD - 11/10/2022 9:03 AM CDT [facility] Infectious Diseases Attending Note Documentation Date/Time: [...] S/p 10/20 with neurosurgery for R sided bwnwdw-cuykgdh-praylttj decompressive sonya-craniectomy for treatment of refractory intracranial [...] 98.8 ??F (37.1 ??C) 102 -- 147/73 11/07/222000 98.2 ??F (36.8 ??C) 104 18 119/57 Intake/Output Summary (Last 24 hours) at 11/08/2022 1650 Last data filed at 11/08/2022 0800 Gross per 24 hour Intake 1095 ml Output 3500 ml Net -2405 ml Labs: Recent Labs Component Name 10/20/22 03006/15/22 0757 CHOL 173 204* TRIG 201* 251* [...] Date/Time RESPIRATORY PANEL WITH SARS-COV-2 BY PCR ([facility]) [[id number]] (Normal) Collected: 11/05/22 1310 Lab Status: Final [...] via the [place] Pathway. CULTURE URINE [[id number]] (Normal) Collected: 11/05/22 1307 Lab Status: Final result Specimen: Urine Cath Straight Updated: 11/06/22 1617 Culture Urine No growth (<100 CFU/mL) CULTURE BLOOD [[id number]] (Normal) Collected: 11/05/22 1054 Lab Status: Preliminary result Specimen: Blood Peripheral Updated: 11/07/22 1401 Culture No growth CULTURE URINE [[id number]] (Normal) Collected: 10/27/22 1208 Lab Status: Final result Specimen: Urine Clean Catch Updated: 10/28/22 2236 Culture Urine No growth (<100 CFU/mL) CULTURE BLOOD FUNGUS [[id number]] (Normal) Collected: 10/27/22 1158 Lab Status: Preliminary result Specimen: Blood Peripheral Updated: 11/06/22 0848 Culture No fungus isolated CULTURE BLOOD AFB [[id number]] (Normal) Collected: 10/27/22 1158 Lab Status: Preliminary result Specimen: Blood Peripheral Updated: 11/06/22 1135 Culture No acid-fast bacillus isolated BARTONELLA SPECIES PCR [[id number]] Collected: 10/27/22 1158 Lab Status: Final result [...] developed and its performance characteristics determined by [facility]. It has not been cleared or approved by the US Food and Drug Administration. This test was performed in a CLIA certified laboratory and is intended for clinical purposes. Performed By: [facility] [address] [place] [address] Bilingual Receptionist: Boo Bond MD, PhD CLIA Number: [id number] CULTURE BLOOD [[id number]] (Normal) Collected: 10/25/22 0900 Lab Status: Final result Specimen: Blood Peripheral Updated: 10/30/22 1330 Culture No growth day 5 CULTURE BLOOD [[id number]] (Normal) Collected: 10/24/22 1313 Lab Status: Final result Specimen: Blood Peripheral Updated: 10/29/22 1632 Culture No growth day 5 MRSA DNA PCR [[id number]] (Normal) Collected: 10/23/22 1234 Lab Status: Final result Specimen: Microbiology from Nasal Updated: 10/23/22 2044 MRSA DNA by PCR Not detected Narrative: Methicillin-resistant Staphylococcus aureus (MRSA) DNA is not detected (presumed not colonized withMRSA). CULTURE BLOOD [[id number]] (Normal) Collected: 10/23/22 1216 Lab Status: Final result Specimen: Blood Peripheral Updated: 10/28/22 1702 Culture No growth day 5 CULTURE BLOOD [[id number]] (Normal) Collected: 10/23/22 1205 Lab Status: Final [...] presence of the primary team staff, residents, PT/OT/SENIOR LITIGATION PARALEGAL and CM/SW. Jaime Drew MD Vascular and [...] 0931 11/02/22 0917 10/31/22 0948 10/28/22 0920 [facility] 15.3 13.2 25.4* 16.5 Will continue current [...] needed. Maicol Oden, PharmD 3:58 PM 11/08/2022 [facility] Vancomycin Guideline SUBJECTIVE/OBJECTIVE Consuelo Darby is a [...] WBC 4.7 4.7 6.5 7.9 6.9 - @[id number]@ Dialysis Orders (72h ago, onward) None Radiocontrast [...] Leigh, JOSETTE - 11/08/2022 3:51 PM CDT [facility] Swallow Treatment Patient: Consuelo Darby Med Record Number: [id number] Date of : 1980 Age: [age] year [...] Impression - Pharyngeal: Severe Treatment/Education/Interventions: While performing SENIOR LITIGATION PARALEGAL, Patient and sister was instructed in: goals [...] precautions., Patient will follow recommended swallowing strategies. Chcf Goal (s): Patient to be independent/baseline with functional mobility and self care and be able to safely discharge to prior level of care. Jerry Valle M.A., ALONZO-SENIOR LITIGATION PARALEGAL Speech Language Pathologist [phone] * Jose Elias [...] Otoole MD - 11/08/2022 3:10 PM CDT [facility] Infectious Diseases Progress Note Admitted on: 10/19/2022 7:53 AM Hospital stay: Room: [facility]/ Attending: Jaime Drew MD Reason for ID consultation: Fever, culture negative infective endocarditis Brief History and Hospital Course: Consuelo Darby??is a 41 year old?female??with a past medical history significant for essential hypertension, migraine, GERD.?Patient presented to [facility] on??10/19/2022??as code stroke due to acute onset [...] Cruz MD - 11/09/2022 6:55 AM CDT [facility] Infectious Diseases Attending Note Documentation Date/Time: [...] S/p 10/20 with neurosurgery for R sided ljvdgw-waklizh-ijhlkvyz decompressive sonya-craniectomy for treatment of refractory intracranial [...] None: Anticipated Discharge Date: 11/10/22: Discharge Plan: [facility] Rehab once medically ready. Pt febrile and being evaluated. ID following. Pending heparin gtt + warfarin bridge Orientation Level: Oriented to Person;Oriented to Place: Family Support (Name and Phone): Extended Emergency Contact Information Primary Emergency Contact: Hi Darby Address: [address] [place] [address] [place] [address] [facility] Relation: Spouse Secondary Emergency Contact: Sandra Disla [facility] Mobile Relation: Mother Transportation at Discharge: Ambulance: READMISSION RISK SCORE is 16 at 2:49 PM 11/08/2022.: Name: Maru Mcduffie RN [phone] * Rosa Vegas, PT - 11/08/2022 2:06 PM CDT [facility] Physical Therapy Progress Note Patient: Consuelo Darby Med Record Number: [id number] Date of : 1980 Age: [age] year [...] balance activities, and monitoring of vitals Modified [place]: Current Modified Maryann Score: 5 AM-PAC 6 [...] EOB x10 minutes with minimal assist ?? Chcf Goal(s): Patient to discharge to appropriate next [...] Troy, OT - 11/08/2022 11:32 AM CDT [facility] Occupational Therapy Progress Note Patient: Consuelo Darby Med Record Number: [id number] Date of : 1980 Age: [age] year old PPE worn by staff: gloves;mask - surgical elastic knitter: Cheli Recommendations: Discharge OT Discharge Recommendations: Patient [...] Appearance: Pt in bed upon arrival in [facility], MIL present in room during session. LDA: [...] splint fitting appropriately, skin integrity intact. Modified [place]: Current Modified [place] Score: 5 AM-PAC 6 Clicks Daily Activity [...] with good endurance and with minimal pain Special Collections Librarian Goal(s): Patient to discharge to appropriate next [...] results for input(s): MG in the last 57654 hours. Recent Labs Component Name 11/07/22223311/06/22231111/06/22 013 PHOS 4.3 4.3 3.6 Recent Labs Component Name 11/08/22 0254 11/07/22 0305 11/06/22231111/06/22 1830 11/06/22 0740 11/06/22 0136 PT 18.3* 18.4* - - - 17.1* INR 1.6 1.6 - - - 1.4 PTT - - 63.4* 68.6* 97.1* 100.4* No results for input(s): A1C in the last 52939 hours. Recent Labs Component Name 10/20/22 0302 06/15/22 0757 CHOL 173 204* HDL 42 37* LDLCALC 91 117* TRIG 201* 251* Recent Labs Component Name 11/06/22 0136 TSH 1.682 No results for input(s): CKMB, CKTOTAL, CKMB, TROPONINI, BNP in the last [address] ANGIO CHEST PULM EMBOLISM Result Date: 11/07/2022 PROCEDURE: CT ANGIO CHEST PULM EMBOLISM, DATE/TIME OF EXAM: 11/07/2022 5:25 PM, LOCATION [facility] INDICATION: R50.9: Fever, unspecified fever cause [...] > Dictated by Tim Major MD (residential program director). IAlexx have personally reviewed and interpreted this [...] m-mode, color and spectralDoppler echocardiography. IR INTRACRANIAL [facility] THROMBECT Result Date: 11/07/2022 PROCEDURE: IR INTRACRANIAL [facility] THROMBECT DATE/TIME OF EXAM: 10/19/2022 10:41 [...] Time to Reperfusion: 9:54 Final TICI: 2b Juvenile Officer: Dr. Mitali Walter Track Fitter(s): Isak Monte Vessels: Ultrasound Guided Access of Femoral Artery Ultrasound Guided Access of Radial Artery Arterial line placement in the right radial artery Right Common Carotid Artery Angiogram: Cerebral Intracranial Catheterization Mechanical Thrombectomy with Retrievable Stent and Reperfusion Catheter Angiography Through the Existing Catheter Right Femoral Artery Angiogram Anesthesia: General Anesthesia was performed and monitored by an attending Anesthesiologist and their food trades assistants throughout the entirety of the case [...] artery demonstrated a patent vessel. A 5 tuvaluan sheath was placed in the radial artery [...] Following a series of exchanges, a 8 Wallisian sheath sheath was placed in the right femoralartery. A Guide and a 6 Wallisian Penumbra Select Serrano 2 catheter along with [...] system. Hemostasis was achieved using a 8 Wallisian Angio-Seal closure device. Hemostasis was immediate at [...] DATE/TIME OF EXAM: 11/05/2022 5:28 PM, LOCATION [facility] INDICATION: R50.9: Fever, unspecified fever cause [...] Report dictated by Mc Castro MD, (residential program director). Pepe Ornelas MD have personally reviewed and [...] DATE/TIME OF EXAM: 11/05/2022 9:38 AM, LOCATION [facility] INDICATION: R50.9: Fever, unspecified fever cause ADDITIONAL CLINICAL INFORMATION: Ordering Provider Reason For Exam: consolidation COMPARISON: Chest radiograph 10/29/2022. FINDINGS/IMPRESSION: Previously seen feeding tube has been removed. These no confluent consolidation, pleural effusion, or pneumothorax is noted. The cardiomediastinal silhouette is stable. No acute osseous abnormality is noted. Report dictated by Christophre Tobin MD, MD (residential program director). HEATHER Ornelas MD have personally reviewed and interpreted this examination/study. > Interpreting Provider: HEATHER FREGOSO MD on 11/05/2022 2:[address] ABDOMEN WO CONTRAST Result Date: 11/02/2022 PROCEDURE: CT ABDOMEN WO CONTRAST, DATE/TIME OF EXAM: 2022 6:47 PM, LOCATION [facility] INDICATION: Z93.1: Presence of externally removable [...] > Dictated by Tim Major MD (residential program director). Pepe Ornelas MD have personallyreviewed and interpreted this examination/study. > Interpreting Provider: Pepe Gonzalez MD on 11/02/2022 1:[address] ABDOMEN PELVIS W CONTRAST Result Date: 10/31/2022 PROCEDURE: CT ABDOMEN PELVIS W CONTRAST, DATE/TIME OF EXAM: 10/31/2022 10:16 AM, LOCATION [facility] INDICATION: I33.0: Aortic valve vegetation ADDITIONAL [...] DATE/TIME OF EXAM: 10/30/2022 8:22 PM, LOCATION: [facility] HISTORY: I63.511: Right middle cerebral artery [...] frontal gyrus/frontal operculum, consistent with an evolving vyvindem-yt-moknwzk infarct. 4.No significant midline shift. Similar-appearing size [...] DATE/TIME OF EXAM: 10/29/2022 10:29 AM, LOCATION [facility] INDICATION: R09.02: Hypoxia ADDITIONAL CLINICAL INFORMATION: Ordering Provider Reason For Exam: evaluate for hypoxia COMPARISON: Chest x-ray from 10/27/2022 FINDINGS/IMPRESSION: Enteric tube is seen coursing over the diaphragm without visualization of the distal tip. There is no focal consolidation, pleural effusion, or pneumothorax. The cardiomediastinal silhouette is normal. Report dictated by Jacques Russell DO (residential program director). Jacques Ornelas DO have personally reviewed and interpreted this examination/study. 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 Report dictated by Jacques Russell DO (residential program director). Jacques Ornelas DO have personally reviewed and interpreted this examination/study. 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 FINDINGS/IMPRESSION: Enteric tube courses below the diaphragm with the distal tip superimposing the antropyloric region. Report dictated by Martell Shetty MD (residential program director). Jacques Ornelas DO have personally reviewed and interpreted this examination/study. > Interpreting Provider: Jacques Cole DO on 10/28/2022 12:[address] HEAD WO CONTRAST Result Date: 10/28/2022 PROCEDURE: CT HEAD WO CONTRAST, DATE/TIME OF EXAM: 10/28/2022 5:28 AM, LOCATION [facility] INDICATION: Z91.89: At high risk for [...] is dictated by Kayla Stevenson MD (residential program director) 1 I, Lonnie Rae MD have personally reviewed and interpreted this examination/study. > Interpreting Provider: Lonnie Rae MD on 10/28/2022 9:15 AM XR CHEST 1VW PORTABLE Result Date: 10/27/2022 PROCEDURE: XR CHEST 1VW PORTABLE, DATE/TIME OF EXAM: 10/27/2022 10:19 AM, LOCATION [facility] INDICATION: D72.829: Leukocytosis, unspecified type ADDITIONAL CLINICAL INFORMATION: Ordering Provider Reason For Exam: any concern for pneumonia COMPARISON: Chest radiograph dated 10/25/2022. FINDINGS/IMPRESSION: Enteric tube courses below the diaphragm and out of the omuoi-ei-bisx. RUQ surgical clips are present. No focal consolidation. No pleural effusion or pneumothorax. The cardiomediastinal silhouette is normal. Report dictated by Agnes Olmos DO (residential program director). I, Pepe Gonzalez MD have personally reviewed and interpreted this examination/study. 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 Enteric tube courses below the diaphragm and out of the lvqyf-hk-fdpq. There is severe left rotation of the patient in this study. There is no focal consolidation, pleural effusion, or pneumothorax. The left upper lobe pulmonary nodule noted on chest CT from same day is not visualized on this plain film. The cardiomediastinal silhouette is normal. The visible bony thorax is intact. Report dictated by Royer Stovall MD (residential program director). I, Alexx Lopez have personally reviewed and interpreted this examination/study. > Interpreting Provider: Alexx Lopez on 10/26/2022 2:[address] HEAD WO CONTRAST Result Date: 10/26/2022 PROCEDURE: CT HEAD WO CONTRAST, DATE/TIME OF EXAM: 10/26/2022 4:55 AM, LOCATION [facility] INDICATION: I63.511: Right middle cerebral artery [...] is dictated by Miranda Bowen MD (residential program director) I, Oriana Suarez MD have personally reviewed and interpreted this examination/study. > Interpreting Provider: Oriana Suarez MD on 38:[address] CHEST ABDOMEN PELVIS W CONT Result Date: 10/25/2022 PROCEDURE: CT CHEST ABDOMEN PELVIS W CONT, DATE/TIME OF EXAM: 10/25/2022 12:56 PM, [facility] INDICATION: I63.511: Right middle cerebral artery [...] > Dictated by Clarisa Cantrell MD (residential program director). I, Alexx Lopez have personally reviewed and interpreted this examination/study. > Interpreting Provider: Alexx Lopez on 10/25/2022 4:[address] HEAD WO CONTRAST Result Date: 10/25/2022 PROCEDURE: CT HEAD WO CONTRAST, DATE/TIME OF EXAM: 10/25/2022 12:56 PM, LOCATION [facility] INDICATION: I63.511: Right middle [...] is dictated by Miranda Bowen MD (residential program director) I, Joni Fabian MD have personally reviewed and interpreted this examination/study. > Interpreting Provider: Joni Fabian MD on 10/25/2022 2:[address] CARDIAC ANGIO STRUCT MORPH Result Date: 10/25/2022 PROCEDURE: CT CARDIAC ANGIO STRUCT MORPH, DATE/TIME OF EXAM: 10/23/2022 3:08 PM, LOCATION [facility] INDICATION: I63.411: Acute cerebrovascular accident (CVA) [...] DATE/TIME OF EXAM: 10/24/2022 2:04 PM, LOCATION [facility] INDICATION: R47.1: Dysarthria ADDITIONAL CLINICAL INFORMATION: Ordering Provider ReasonFor Exam: ngt placement COMPARISON: Portable KUB dated 10/23/2022 FINDINGS/IMPRESSION: The enteric tube courses below the diaphragm with tip superimposing the gastric pyloric region. Drafted by Agnes Olmos DO (residential program director). I, Vanessa Kumar MD have personally reviewed and interpreted this examination/study. > Interpreting Provider: Vanessa Kumar MD on 10/24/2022 2:17 PM MRI BRAIN WWO CONTRAST Result Date: 10/24/2022 PROCEDURE: MRI BRAIN WWO CONTRAST, DATE/TIME OF EXAM: 10/24/2022 10:56 AM, LOCATION [facility] INDICATION: I63.411: Acute cerebrovascular accident (CVA) [...] right lateral ventricle, and approximately 3-4 mm ywyeq-ue-njjw midline shift at the level of the [...] right lateral ventricle, and approximately 3-4 mm sofyn-iv-fjis midline shift, grossly similar to the prior. [...] Report dictated by Tim Major MD (residential program director). I, Jasper Sifuentes MD have personally reviewed and interpreted this examination/study. 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 Endotracheal tube terminates in the midthoracic trachea. There is no focal consolidation. No pleural effusion or pneumothorax. The cardiomediastinal silhouette is normal. No acute osseous abnormality. Report dictated by Agnes Olmos DO (residential program director). Vanessa Ornelas MD have personally reviewed and [...] DATE/TIME OF EXAM: 10/23/2022 1:53 PM, LOCATION [facility] INDICATION: R47.1: Dysarthria ADDITIONAL CLINICAL INFORMATION: Ordering Provider ReasonFor Exam: NGT placement COMPARISON: Portable KUB dated 10/20/2022 FINDINGS/IMPRESSION: The enteric tube courses below the diaphragm with tip superimposing the stomach. Drafted by Agnes Olmos DO (residential program director). I, Vanessa Kumar MD have personally reviewed and interpreted this examination/study. > Interpreting Provider: Vanessa Kumar MD on 10/24/2022 8:[address] HEAD WO CONTRAST Result Date: 10/23/2022 PROCEDURE: CT HEAD WO CONTRAST, DATE/TIME OF EXAM: 10/23/2022 5:53 AM, LOCATION [facility] INDICATION: I63.511: Right middle cerebral artery [...] report is dictated by Miranda Bowen MD(residential program director) IJasper MD have personally reviewed and interpreted this examination/study. > Interpreting Provider: Jasper Sifuentes MD on 10/23/2022 9:[address] HEAD WO CONTRAST Result Date: 10/22/2022 PROCEDURE: CT HEAD WO CONTRAST, DATE/TIME OF EXAM: 10/22/2022 5:35 AM, LOCATION [facility] INDICATION: I63.511: Right middle cerebral artery [...] hemorrhage. Report dictated by Lorenzo Horta MD (resident associate). I, Lonnie Rae MD have personally reviewed and interpreted this examination/study. > Interpreting Provider: Lonnie Rae MD on 10/22/2022 3:10 PM XR CHEST 1VW PORTABLE Result Date: 10/21/2022 PROCEDURE: XR CHEST 1VW PORTABLE, DATE/TIME OF EXAM: 10/21/2022 8:53 AM, LOCATION [facility] INDICATION: R53.1: Weakness ADDITIONAL CLINICAL INFORMATION: [...] Report dictated by Christopher Tobin MD, (residential program director). I, HEATHER FREGOSO MD have personally reviewed [...] DATE/TIME OF EXAM: 10/20/2022 9:13 PM, LOCATION [facility] INDICATION: I63.411: Acute cerebrovascular accident (CVA) due to embolism of right middle cerebral artery (CMS/HCC) ADDITIONAL CLINICAL INFORMATION: Ordering Provider Reason For Exam: [facility] COMPARISON: Multiple prior studies, most recently CT [...] effacement, effacement of theright lateral ventricle, and neiti-oh-gzgn midline shift measuring up to 4 mm [...] prior. > Dictated by Bassam Jovel M.D. (resident associate) Gonzalez Ornelas MD have personally reviewed and [...] Report dictated by Royer Stovall MD (residential program director). Amanda Ornelas MD have personally reviewed and [...] DATE/TIME OF EXAM: 10/19/2022 8:16 AM, LOCATION [facility] INDICATION: Code Stroke ADDITIONAL CLINICAL INFORMATION: [...] DATE/TIME OF EXAM: 10/19/2022 8:04 AM, LOCATION [facility] INDICATION: Code Stroke ADDITIONAL CLINICAL INFORMATION: [...] or improving Outcome: Progressing * Orquidea Pederson, TIO/MELVA - 11/07/2022 2:21 PM CDT Clinical Nutrition [...] Pain affecting intake: No Estimated Needs: KCAL: 3076-2699 (30-35 kcal/kg IBW) Protein (g): 82g (1.5 [...] Vegas, PT - 11/07/2022 2:02 PM CDT [facility] Physical Therapy Progress Note Patient: Consuelo Darby Med Record Number: [id number] Date of : 1980 Age: [age] year [...] with BUE supported on table: reaching to pickup driver object with RUE and placing object on various targets to L side of midline ACTIVITY TOLERANCE: Patient's activity tolerance: fair plus. TREATMENT/INTERVENTIONS: Patient seen for bed mobility training, sitting balance training, and seated therapeutic exercises with emphasis on neutral spine posture and gaze to midline/L side Modified [place]: Current Modified [place] Score: 5 AM-PAC 6 Clicks Mobility Raw [...] EOB x10 minutes with minimal assist ?? Chcf Goal(s): Patient to discharge to appropriate next [...] results for input(s): MG in the last 06832 hours. Recent Labs Component Name 11/06/22 2312 [...] results for input(s): A1C in the last 48961 hours. Recent Labs Component Name 10/20/22 0302 06/15/22 0757 CHOL 173 204* HDL 42 37* LDLCALC 91 117* TRIG 201* 251* Recent Labs Component Name 11/06/22 0136 TSH 1.682 No results for input(s): CKMB, CKTOTAL, CKMB, TROPONINI, BNP in the last [address] ANGIO BRAIN NECK STROKE Result [...] RESPIRATORY PANEL WITH SARS-COV-2 BY PCR ([facility]) [[id number]] (Normal) Collected: 11/05/22 1310 Lab Status: Final [...] via the [place] Pathway. CULTURE URINE [[id number]] (Normal) Collected: 11/05/22 1307 Lab Status: Final result Specimen: Urine Cath Straight Updated: 11/06/22 1617 Culture Urine No growth (<100 CFU/mL) CULTURE BLOOD [[id number]] (Normal) Collected: 11/05/22 1054 Lab Status: Preliminary result Specimen: Blood Peripheral Updated: 11/06/22 1400 Culture No growth 24 hours CULTURE URINE [[id number]] (Normal) Collected: 10/27/22 1208 Lab Status: Final result Specimen: Urine Clean Catch Updated: 10/28/22 2236 Culture Urine No growth (<100 CFU/mL) CULTURE BLOOD FUNGUS [[id number]] (Normal) Collected: 10/27/22 1158 Lab Status: Preliminary result Specimen: Blood Peripheral Updated: 11/06/22 0848 Culture No fungus isolated CULTURE BLOOD AFB [[id number]] (Normal) Collected: 10/27/22 1158 Lab Status: Preliminary result Specimen: Blood Peripheral Updated: 11/06/22 1135 Culture No acid-fast bacillus isolated BARTONELLA SPECIES PCR [[id number]] Collected: 10/27/22 1158 Lab Status: Final result [...] developed and its performance characteristics determined by [facility]. It has not been cleared or approved by the [place] Food and Drug Administration. This test was performed in a CLIA certified laboratory and is intended for clinical purposes. Performed By: [facility] [address] [place] [id number] Bilingual Receptionist: Boo Bond MD, PhD CLIA Number: [id number] CULTURE BLOOD [[id number]] (Normal) Collected: 10/25/22 0900 Lab Status: Final result Specimen: Blood Peripheral Updated: 10/30/22 1330 Culture No growth day 5 CULTURE BLOOD [[id number]] (Normal) Collected: 10/24/22 1313 Lab Status: Final result Specimen: Blood Peripheral Updated: 10/29/22 1632 Culture No growth day 5 MRSA DNA PCR [[id number]] (Normal) Collected: 10/23/22 1234 Lab Status: Final result Specimen: Microbiology from Nasal Updated: 10/23/22 2044 MRSA DNA by PCR Not detected Narrative: Methicillin-resistant Staphylococcus aureus (MRSA) DNA is not detected (presumed not colonized withMRSA). CULTURE BLOOD [[id number]] (Normal) Collected: 10/23/22 1216 Lab Status: Final result Specimen: Blood Peripheral Updated: 10/28/22 1702 Culture No growth day 5 CULTURE BLOOD [[id number]] (Normal) Collected: 10/23/22 1205 Lab Status: Final [...] presence of the primary team staff, residents, PT/OT/SENIOR LITIGATION PARALEGAL and CM/JESSY. Jaime Drew MD Vascular and Interventional Neurology * Shania Troy OT - 11/07/2022 11:56 AM CDT [facility] Physical Medicine and Rehabilitation Occupational Therapy Progress Note Patient: Consuelo Darby Med Record Number: [id number] Date of : 1980 Age: [age] year old PPE worn by staff: gloves;mask - surgical elastic knitter: Cheli Recommendations: Discharge OT Discharge Recommendations: Patient [...] Pt in semi fowlers upon arrival in [facility], sister present in room during session. LDA: [...] ACTIVITY TOLERANCE: Patient's activity tolerance: fair Modified [place]: Current Modified [place] Score: 5 AM-PAC 6 Clicks Daily Activity [...] with good endurance and with minimal pain Chcf Goal(s): Patient to discharge to appropriate next [...] Leigh SLP - 11/07/2022 10:50 AM CDT [facility] Physical Medicine and Rehabilitation Swallow Treatment Patient: Consuelo Darby Med Record Number: [id number] Date of : 1980 Age: [age] year [...] Impression - Pharyngeal: Severe Treatment/Education/Interventions: While performing SENIOR LITIGATION PARALEGAL, Patient and sister was instructed in: goals [...] precautions., Patient will follow recommended swallowing strategies. Chcf Goal (s): Patient to be independent/baseline with functional mobility and self care and be able to safely discharge to prior level of care. 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 Brief History and Hospital Course: Consuelo Darby??is a 41 year old?female??with a past medical history significant for essential hypertension, migraine, GERD.?Patient presented to [facility] on??10/19/2022??as code stroke due to acute onset [...] LABS CBC: Recent Labs Component Name 11/06/22 23111/06/22 0136 [...] Cruz MD - 11/08/2022 11:42 AM CDT [facility] Infectious Diseases Attending Note Documentation Date/Time: [...] PMH of HTN, migraine, GERD, presented to [facility] on 10/19/2022 as code stroke due to acute onset left sided weakness, left sided sensory deficits, and dysarthria. Found to have right MCA occulusion. Assessment: 41 year old female with PMH of HTN, migraine, GERD, presented to [facility] on 10/19/2022 as code stroke due to [...] S/p 10/20 with neurosurgery for R sided sjmuxu-kpykouk-vovjtdye decompressive sonya-craniectomy for treatment of refractory intracranial [...] Li RN Outcome: Progressing 11/07/2022537 by Awilda iL RN Outcome: Progressing Problem: Pain/Discomfort Goal: Patient [...] from bed to chair 11/07/2022537 by Awilda iL RN Outcome: Progressing 11/07/2022537 by Awilda Li [...] PM CDT Rapid Response Nurse Rounding Note [address] [address] Patient: Consuelo Darby : 1980 Location: [facility] Rapid Response Nurse (PILOT SAFETY INSPECTOR) continued rounding for follow up of pt's elevated temperature. Pt had a recent hemicraniectomy and ID was consulted and antibiotic regimen adjusted for coverage of endocarditis with possible vegetation. At the time of Night PILOT SAFETY INSPECTOR's rounding the pt's temp is 99.1 with [...] intact bilaterally Labs: Recent Labs Component Name 11/06/2213511/05/22 1227 11/04/22212710/23/22 0129 10/22/22 0153 WBC 6.5 7.9 6.9 8.4 - - RBC 3.42* 3.28* 3.24* 3.73* - - HGB 10.0* 9.7* 9.7* 10.9* - - HCT 32.8* 30.2* 29.6* 34.6* - - PLT - - - - 199 - = values in this interval not displayed. Recent Labs Component Name 11/06/2213511/05/22 1124 11/04/222127 NA 139 139 141 CL 111* 104 106 CO2 21* 23 25 BUN 8 8 8 CREATININE 0.56 0.54* 0.55* CALCIUM 8.3* 8.5 8.3* No results for input(s): MG in the last 18814 hours. Recent Labs Component Name 11/06/22 01311/05/22 1124 11/04/222127 PHOS 3.6 3.2 3.4 Recent [...] results for input(s): A1C in the last 16981 hours. Recent Labs Component Name 10/20/22 0302 06/15/22 0757 CHOL 173 204* HDL 42 37* LDLCALC 91 117* TRIG 201* 251* Recent Labs Component Name 11/06/22 0136 TSH 1.682 No results for input(s): CKMB, CKTOTAL, CKMB, TROPONINI, BNP in the last [address] ANGIO BRAIN NECK STROKE Result [...] None: Anticipated Discharge Date: 11/08/22: Discharge Plan: [facility] rehab once medically ready. SW following. On warfarin bridge now. Developed fever- consulted ID, broaden abx, Cxs, Ddimer, TSH Orientation Level: Unable to Obtain;Other (Comment) (Patient was more alert this date. Patient awares surrounding and responded to the question by gesture.): Family Support (Name and Phone): Extended Emergency Contact Information Primary Emergency Contact: Hi Darby Address: [address] [place] [address] [place] [address] [facility] Relation: Spouse Secondary Emergency Contact: Sandra Disla [facility] Mobile Relation: Mother Transportation at Discharge: Ambulance: READMISSION RISK SCORE is 16 at 3:24 PM 11/06/2022.: Name: Maru Mcduffie RN 2426 * Shania Troy OT - 11/06/2022 3:17 PM CDT [facility] Physical Medicine and Rehabilitation Occupational Therapy Splint [...] mg, Enteral Tube, once warfarin ?? [COMPLETED] syffq-evn-fbfaeamt (HOG) enema 360 mL, Rectal, Once CONTINUOUS [...] RESPIRATORY PANEL WITH SARS-COV-2 BY PCR (STL) [[id number]] (Normal) Collected: 11/05/22 1310 Lab Status: Final [...] via the [place] Pathway. CULTURE URINE [[id number]] Collected: 11/05/22 1307 Lab Status: In process Specimen: Urine Cath Straight Updated: 11/05/22 1341 CULTURE BLOOD [[id number]] (Normal) Collected: 11/05/22 1054 Lab Status: Preliminary result Specimen: Blood Peripheral Updated: 11/06/22 1400 Culture No growth 24 hours CULTURE URINE [[id number]] (Normal) Collected: 10/27/22 1208 Lab Status: Final result Specimen: Urine Clean Catch Updated: 10/28/22 2236 Culture Urine No growth (<100 CFU/mL) CULTURE BLOOD FUNGUS [[id number]] (Normal) Collected: 10/27/22 1158 Lab Status: Preliminary result Specimen: Blood Peripheral Updated: 11/06/22 0848 Culture No fungus isolated CULTURE BLOOD AFB [[id number]] (Normal) Collected: 10/27/22 1158 Lab Status: Preliminary result Specimen: Blood Peripheral Updated: 11/06/22 1135 Culture No acid-fast bacillus isolated BARTONELLA SPECIES PCR [[id number]] Collected: 10/27/22 1158 Lab Status: Final result [...] developed and its performance characteristics determined by [facility]. It has not been cleared or approved by the US Food and Drug Administration. This test was performed in a CLIA certified laboratory and is intended for clinical purposes. Performed By: [facility] [address] [place] [address] Bilingual Receptionist: Boo Bond MD, PhD CLIA Number: [id number] CULTURE BLOOD [[id number]] (Normal) Collected: 10/25/22 0900 Lab Status: Final result Specimen: Blood Peripheral Updated: 10/30/22 1330 Culture No growth day 5 CULTURE BLOOD [[id number]] (Normal) Collected: 10/24/22 1313 Lab Status: Final result Specimen: Blood Peripheral Updated: 10/29/22 1632 Culture No growth day 5 MRSA DNA PCR [[id number]] (Normal) Collected: 10/23/22 1234 Lab Status: Final result Specimen: Microbiology from Nasal Updated: 10/23/22 2044 MRSA DNA by PCR Not detected Narrative: Methicillin-resistant Staphylococcus aureus (MRSA) DNA is not detected (presumed not colonized withMRSA). CULTURE BLOOD [[id number]] (Normal) Collected: 10/23/22 1216 Lab Status: Final result Specimen: Blood Peripheral Updated: 10/28/22 1702 Culture No growth day 5 CULTURE BLOOD [[id number]] (Normal) Collected: 10/23/22 1205 Lab Status: Final [...] presence of the primary team staff, residents, PT/OT/SENIOR LITIGATION PARALEGAL and CM/SW. Jaime Drew MD Vascular and [...] changes in diet or consulting a health child care development specialist before changes are made. Potential for other medications to interact with warfarin therapy and advised not to take start or discontinue any medication or qrym-pmm-hfjcqry medication without the advice of their health child care development specialist. Signs and symptoms of bleeding were explained as warfarin increases the risk of bleeding. Gave written documentation to have INR checked 1 to 5 days of discharge. The patient and her family (, Father, and Aunt) verbalized understanding. Opportunities for questions provided. oJnah Montana, PharmD Candidate 2023 Shania Jha PharmD 11/06/2022 12:59 PM Department of Pharmacy, Ext: [phone] * Ankit Spivey - 11/06/2022 11:38 AM CDT [facility] Physical Medicine and Rehabilitation Physical Therapy Progress Note Patient: Consuelo Daryb Med Record Number: [id number] Date of : 1980 Age: [age] year [...] monitoring of vitals and cognitive stimulation Modified [place]: Current Modified [place] Score: 5 AM-PAC 6 Clicks Mobility Raw [...] EOB x10 minutes with minimal assist ?? Chcf Goal(s): Patient to discharge to appropriate next [...] Otoole MD - 11/06/2022 9:24 AM CDT [facility] Infectious Diseases Progress Note Admitted on: 10/19/2022 7:53 AM Hospital stay: Room: [facility] Attending: Jaime Drew MD Reason for ID consultation: Fever, culture negative infective endocarditis Brief History and Hospital Course: Consuelo Darby??is a 41 year old?female??with a past medical history significant for essential hypertension, migraine, GERD.?Patient presented to [facility] on??10/19/2022??as code stroke due to acute onset [...] Intake/Output Summary (Last 24 hours) at 11/06/2022 6483 Last data filed at 11/06/2022 0557 Gross [...] 0136 11/05/22 1124 11/04/228 10/20/22 0302 10/19/22 0824 06/15/22 0757 NA [...] Cruz MD - 11/07/2022 8:57 PM CDT [facility] Infectious Diseases Attending Note Documentation Date/Time: 11/06/2022, 9:14 PM The patient was seen and evaluated with Internal Medicine resident Alhaji Otoole M.D. I agree with the findings as described in the note, including the history, interval changes, ROS, examination, objective data interpretation, impression and plan as documented. Angelica Cruz MD Infectious Diseases Attending * Zenia Heath - 11/06/2022 9:12 AM CDT Discharge production control scheduler received request from to schedule a follow up appointment with CT Scan. This automatic typewriter inspector sent a request via [employer] to [facility] to assist with scheduling an appointment. The patient's chart will be updated once an appointment has been made. The patient will continued to be followed for their discharge planning needs. 11/06/2022 Zenia Heath 3 * Melany Cali RN - 11/06/2022 8:32 AM CDT Rapid Response Nurse Rounding Note [address] [address] Patient: Consuelo Darby : 1980 Location: Rapid [...] 1:33 AM CDT Ptt scheduled for 2144. Supervisor [employer] couldn't get vein and wasn't notified. I [...] PM CDT Rapid [place] [address] Patient: Consuelo Darby : 1980 Location: [facility]/ Patient rounding completed by PILOT SAFETY INSPECTOR, respirations even and unlabored. Continued fevers, however, [...] Perry OT - 11/05/2022 2:54 PM CDT [facility] Physical Medicine and Rehabilitation Occupational Therapy Splint [...] Ramsey MD - 11/05/2022 1:34 PM CDT [facility] Infectious Diseases Progress Note Admitted on: 10/19/2022 7:53 AM Hospital stay: Day Room: [facility] Attending: Jaime Drew MD Reason for IDf/u: Fever cx negative endocarditis Brief History and Hospital Course: Consuelo Darby is a 41 year old female with a past medical history significant for essential hypertension, migraine, GERD. ?? Patient presented to [facility] on 10/19/2022 as code stroke due to [...] or tick bites. She lives with in [place], [place]. 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 They recently went to a trip to [place] for vacation, she bathed in the sea [...] the nurse, she has some discharged from [facility] today. U/A and Ucx were sent. SUBJECTIVE [...] heparin, 500-2,150 Units/hr, Last Rate: 1,350 Units/hr (11/04/222) PRN Medications ??? SALINE LOCK, INSERT AND [...] Clarity UA Clear Slt Cloudy ! Specific [place] UA 1.005 - 1.030 1.016 pH UA [...] -- 11/04/229 -- (!) 110 -- 154/76 11/04/22 2055 [...] Procedure Component Value - Date/Time CULTURE BLOOD [[id number]] Collected: 11/05/22 1054 Lab Status: In process Specimen: Blood Peripheral Updated: 11/05/22 1123 CULTURE URINE [[id number]] Lab Status: No result Specimen: Urine Cath Straight RESPIRATORY PANEL WITH SARS-COV-2 BY PCR (STL) [[id number]] Lab Status: No result Specimen: Microbiology from Nasopharyngeal CULTURE URINE [[id number]] (Normal) Collected: 10/27/22 1208 Lab Status: Final result Specimen: Urine Clean Catch Updated: 10/28/22 2236 Culture Urine No growth (<100 CFU/mL) CULTURE BLOOD FUNGUS [[id number]] (Normal) Collected: 10/27/22 115 Lab Status: Preliminary result Specimen: Blood Peripheral Updated: 10/30/22 0628 Culture No fungus isolated CULTURE BLOOD AFB [[id number]] (Normal) Collected: 10/27/22 115 Lab Status: Preliminary result Specimen: Blood Peripheral Updated: 10/30/22 0750 Culture No acid-fast bacillus isolated BARTONELLA SPECIES PCR [[id number]] Collected: 10/27/22 115 Lab Status: Final result [...] developed and its performance characteristics determined by [facility]. It has not been cleared or approved by the US Food and Drug Administration. This test was performed in a CLIA certified laboratory and is intended for clinical purposes. Performed By: [facility] [address] [place] [address] Bilingual Receptionist: Boo Bond MD, PhD CLIA Number: [id number] CULTURE BLOOD [[id number]] (Normal) Collected: 10/25/22 0900 Lab Status: Final result Specimen: Blood Peripheral Updated: 10/30/22 1330 Culture No growth day 5 CULTURE BLOOD [[id number]] (Normal) Collected: 10/24/22 1313 Lab Status: Final result Specimen: Blood Peripheral Updated: 10/29/22 1632 Culture No growth day 5 MRSA DNA PCR [[id number]] (Normal) Collected: 10/23/22 1234 Lab Status: Final result Specimen: Microbiology from Nasal Updated: 10/23/222043 MRSA DNA by PCR Not detected Narrative: Methicillin-resistant Staphylococcus aureus (MRSA) DNA is not detected (presumed not colonized withMRSA). CULTURE BLOOD [[id number]] (Normal) Collected: 10/23/22 1216 Lab Status: Final result Specimen: Blood Peripheral Updated: 10/28/22 1702 Culture No growth day 5 CULTURE BLOOD [[id number]] (Normal) Collected: 10/23/22 1205 Lab Status: Final [...] presence of the primary team staff, residents, PT/OT/SENIOR LITIGATION PARALEGAL and CM/SW. Jaime Drew MD Vascular and [...] taken Interval History: NSGY to remove carla 8/28 Objective Patient Vitals for the past 24 [...] 138 CL 106 104 103 CO2 25 23 BUN 8 9 11 CREATININE 0.55* 0.56 0.55* CALCIUM 8.3* 8.6 8.9 No results for input(s): MG in the last 54582 hours. Recent Labs Component Name 11/04/22212711/04/2253 11/02/222220 PHOS 3.4 3.8 4.2 Recent Labs Component Name 11/05/22 0350 11/04/22212711/04/22 1617 11/04/22 0931 11/04/22 0553 11/03/22 2353 PT 15.5* - - - 14.5 14.2 INR 1.3 - - - 1.1 1.1 PTT 77.4* 53.3* 131.0* - 96.7* 77.9* - = values in this interval not displayed. No results for input(s): A1C in the last 75792 hours. Recent Labs Component Name 10/20/22 0302 06/15/22 0757 CHOL 173 204* HDL 42 37* LDLCALC 91 117* TRIG 201* 251* Recent Labs Component Name 06/15/22 0757 TSH 1.873 No results for input(s): CKMB, CKTOTAL, CKMB, TROPONINI, BNP in the last [address] ANGIO BRAIN NECK STROKE Result [...] Lopez OT - 11/05/2022 7:50 AM CDT [facility] Acute Rehab update: Patient not yet medically ready to transfer to [place] today. Per bedside RN Shahab, patient remains on heparin drip this morning. Notified team, no documented BM since 10/30. U CL will follow up tomorrow. Thanks! Gianna Lopez OTR/Amy Clinical Liaison [facility] [phone] * Susi Glez MD - 11/05/2022 7:29 AM CDT Neurosurgery called to bedside. Patient reportedly hit her head while being adjusted in bed underneath crani site. Patient began complaining of severe headaches. On exam, patient somnolent but awakens to gentle stimulation, follows commands on RUE and RLE. Repeat CT shows stable hemicrani site, no signs of ICH [place] removed at bedside today. Wound healing well. [...] findings of outpatient SARAH. Lul Miguel PA-C [phone] * Awilda Li RN - 11/05/2022 6:37 [...] Lopez OT - 11/04/2022 2:40 PM CDT [facility] Acute Rehab update: Per Dr. Muller - patient likely to be medically ready for d/c tomorrow. Will follow up in the morning. Would have private room available at [facility]. Addendum: Per chart review, last documented BM 10/30 - would need more recent BM before patient can transfer to rehab once team determines she is medically ready. Thanks for referral, Gianna Lopez OTR/L Clinical Liaison [facility] [phone] * Jaime Drew MD - 11/04/2022 1:21 [...] Procedure Component Value - Date/Time CULTURE URINE [[id number]] (Normal) Collected: 10/27/22 1208 Lab Status: Final result Specimen: Urine Clean Catch Updated: 10/28/22 2236 Culture Urine No growth (<100 CFU/mL) CULTURE BLOOD FUNGUS [[id number]] (Normal) Collected: 10/27/22 115 Lab Status: Preliminary result Specimen: Blood Peripheral Updated: 10/30/22 0628 Culture No fungus isolated CULTURE BLOOD AFB [[id number]] (Normal) Collected: 10/27/221157 Lab Status: Preliminary result Specimen: Blood Peripheral Updated: 10/30/22 0750 Culture No acid-fast bacillus isolated BARTONELLA SPECIES PCR [[id number]] Collected: 10/27/221157 Lab Status: Final result Specimen: [...] developed and its performance characteristics determined by [facility]. It has not been cleared or approved by the US Food and Drug Administration. This test was performed in a CLIA certified laboratory and is intended for clinical purposes. Performed By: [facility] [address] [place] [address] Bilingual Receptionist: Boo Bond MD, PhD CLIA Number: [id number] CULTURE BLOOD [[id number]] (Normal) Collected: 10/25/22 0900 Lab Status: Final result Specimen: Blood Peripheral Updated: 10/30/22 1330 Culture No growth day 5 CULTURE BLOOD [[id number]] (Normal) Collected: 10/24/22 1313 Lab Status: Final result Specimen: Blood Peripheral Updated: 10/29/22 1632 Culture No growth day 5 MRSA DNA PCR [[id number]] (Normal) Collected: 10/23/22 1234 Lab Status: Final result Specimen: Microbiology from Nasal Updated: 10/23/22 2044 MRSA DNA by PCR Not detected Narrative: Methicillin-resistant Staphylococcus aureus (MRSA) DNA is not detected (presumed not colonized withMRSA). CULTURE BLOOD [[id number]] (Normal) Collected: 10/23/22 1216 Lab Status: Final result Specimen: Blood Peripheral Updated: 10/28/22 1702 Culture No growth day 5 CULTURE BLOOD [[id number]] (Normal) Collected: 10/23/22 1205 Lab Status: Final [...] presence of the primary team staff, residents, PT/OT/SENIOR LITIGATION PARALEGAL and CM/SW. Jaime Drew MD Vascular and Interventional Neurology * Jovanni Mcgrath, PharmD - 11/04/2022 12:47 PM CDT ACTIVE CONSULTS TO PHARMACY/DISEASE STATE MONITORING Pharmacy Consult: Vancomycin ASSESSMENT/PLAN Indication: suspected infective endocarditis c/b septic emboli to RELATIONSHIP EXECUTIVE Goal Trough: 15-20 mcg/ml ID consulted/following: Yes [...] needed. Jovanni Mcgrath, PharmD 12:41 PM 11/04/2022 [facility] Vancomycin Guideline SUBJECTIVE/OBJECTIVE Consuelo Darby is a [...] 8 WBC - 13.3* 19.3* 20.6* 19.6* @[id number]@ Dialysis Orders (72h ago, onward) None Vancomycin Administrations from [facility] (last 72 hours) Date/Time Action Medication Dose [...] who is agreeable to private room at [facility] if it becomes available before [facility]. [facility] liaison aware and following for admission. Orientation Level: Oriented to Person: Family Support (Name and Phone): Extended Emergency Contact Information Primary Emergency Contact: Hi Darby Address: [address] [place] [address] [place] [address] [facility] Relation: Spouse Secondary Emergency Contact: Sandra Disla [facility] Mobile Relation: Mother Transportation at Discharge: Ambulance: READMISSION RISK SCORE is 16 at 12:46 PM 11/04/2022.: Name: JAYLENE Haines * Bess Triana COTA - 11/04/2022 11:14 AM CDT [facility] Physical Medicine and Rehabilitation Occupational Therapy Splint Check Note Patient Name Consuelo Darby Date of 1980 Age [age] year old Type of Splint: Left foot drop and resting hand Splint Issued by: Not applicable-follow up visit Splint Check Completed: No issues noted. Skin intact and splint fitting appropriately Treatment Plan: Cell Repairer education completed.; 2 hrs on 2 hrs off. 11/04/2022 * Jovanni Mcgrath PharmD - 11/04/2022 10:20 AM CDT ACTIVE CONSULTS TO PHARMACY/DISEASE STATE MONITORING Pharmacy Consult: Warfarin Management ASSESSMENT/PLAN Warfarin Indication for anticoagulation: DVT and Ischemic Stroke due to septic emboli Warfarin schedule prior to this encounter: New start Warfarin Dose History Date INR Dose (mg) Comments 8/25 1.2 5 mg New start with heparin [...] results for input(s): MG in the last 34991 hours. Recent Labs Component Name 11/04/22 0553 11/02/22 22211/02/22 0132 PHOS 3.8 4.2 4.5 Recent Labs Component Name 11/04/22 0553 11/03/22 2353 11/03/22 1626 11/03/22 1048 11/03/22 0449 PT 14.5 14.2 - - 15.1* INR 1.1 1.1 - - 1.2 PTT 96.7* 77.9* 58.8* - 89.3* - = values in this interval not displayed. No results for input(s): A1C in the last 88716 hours. Recent Labs Component Name 10/20/22 0302 06/15/22 0757 CHOL 173 204* HDL 42 37* LDLCALC 91 117* TRIG 201* 251* Recent Labs Component Name 06/15/22 0757 TSH 1.873 No results for input(s): CKMB, CKTOTAL, CKMB, TROPONINI, BNP in the last [address] ANGIO BRAIN NECK STROKE Result [...] (PEG) tube (CMS/HCC) (POA: Unknown) Assessment ??Consuelo Draby is a 41 year old female who [...] route. On arrival patient noted to Amy Gilmore hemainopsia, mild dysarthria, andextinction. NIHSS: 7. S/p [...] results for input(s): MG in the last 86420 hours. Recent Labs Component Name 11/02/22222011/02/22 0132 [...] results for input(s): A1C in the last 42437 hours. Recent Labs Component Name 10/20/22 0302 06/15/22 0757 CHOL 173 204* HDL 42 37* LDLCALC 91 117* TRIG 201* 251* Recent Labs Component Name 06/15/22 0757 TSH 1.873 No results for input(s): CKMB, CKTOTAL, CKMB, TROPONINI, BNP in the last [address] ANGIO BRAIN NECK STROKE Result [...] detail with the patient's care provider, Dr. eHster by Dr. Rae via telephone at 8:10 [...] Troy, OT - 11/03/2022 3:16 PM CDT [facility] Physical Medicine and Rehabilitation Occupational Therapy Progress Note Patient: Consuelo Darby Med Record Number: [id number] Date of : 1980 Age: [age] year old PPE worn by staff: gloves;mask - surgical elastic knitter: Cheli Recommendations: Discharge OT Discharge Recommendations: Patient [...] Appearance: Pt in bed upon arrival in [facility]. LDA: PIV, puentes catheter, PEG Mental Status/Cognition: [...] ACTIVITY TOLERANCE: Patient's activity tolerance: good Modified [place]: Current Modified Maryann Score: 5 AM-PAC 6 [...] with good endurance and with minimal pain Special Collections Librarian Goal(s): Patient to discharge to appropriate next [...] obtained, pending private room. Pt agreeable to [facility] location. Please contact weekend liaison for bed availability if pt is medically ready for transfer. Liaison can be contacted by phone or Gigaom Chat. ?? Weekend Liaison: Gianna Lopez Thank you for the referral. Becky Hinojosa RN, BSN Senior Clinical Liaison [facility] [phone] * Maru Mcduffie RN - 11/03/2022 12:39 [...] Information Primary Emergency Contact: Hi Darby Address: [address] [place] [phone] [facility] Relation: Spouse Secondary Emergency Contact: Sandra Disla [facility] Mobile Relation: Mother Transportation at Discharge: Ambulance: READMISSION RISK SCORE is 16 at 12:39 PM 11/03/2022.: Name: Maru Mcduffie RN [phone] * Salinas Infante MSW - 11/03/2022 10:35 AM CDT SW was notified pt recd for IRF/acute rehab. Previous SW spoke to [facility] and they are following up w/ pt family at bedside to discuss. SW to follow. 1110 - SW notified pt family agreeable to [facility] Rehab. JESSY also called and spoke w/ pt Salo to discuss questions he had regarding pt insurance and disability. JESSY encouraged Salo to call pt's insurance for specific questions regarding it as SW is unable to answer these. JESSY also advised we can send a referral to [facility] for disability application and Salo was agreeable. JESSY to follow. * Ankit Spivey - 11/03/2022 10:14 AM CDT [facility] Physical Medicine and Rehabilitation Physical Therapy Progress Note Patient: Consuelo Darby Med Record Number: [id number] Date of : 1980 Age: [age] year [...] monitoring of vitals and cognitive stimulation Modified [place]: Current Modified [place] Score: 5 AM-PAC 6 Clicks Mobility Raw [...] EOB x10 minutes with minimal assist ?? Special Collections Librarian Goal(s): Patient to discharge to appropriate next [...] Pain affecting intake: No Estimated Needs: KCAL: [id number] (30-35 kcal/kg IBW) Protein (g): 82g (1.5 [...] Troy, OT - 11/02/2022 12:52 PM CDT [facility] Physical Medicine and Rehabilitation Occupational Therapy Progress Note Patient: Consuelo Darby Med Record Number: [id number] Date of : 1980 Age: [age] year [...] Appearance: Pt in bed upon arrival in [facility]. LDA: PIV, puentes catheter, PEG Vitals: (*Assess [...] ACTIVITY TOLERANCE: Patient's activity tolerance: fair Modified [place]: Current Modified [place] Score: 5 AM-PAC 6 Clicks Daily Activity [...] with good endurance and with minimal pain Special Collections Librarian Goal(s): Patient to discharge to appropriate next [...] suspected infective endocarditis c/b septic emboli to RELATIONSHIP EXECUTIVE Goal Trough: 15-20 mcg/ml ID consulted/following: Yes [...] needed. Shania Jha, PharmD 12:30 PM 11/02/2022 [facility] Vancomycin Guideline SUBJECTIVE/OBJECTIVE Consuelo Darby is a [...] 8 11 WBC 19.3* 20.6* 19.6* 17.9* @[id number]@ Dialysis Orders (72h ago, onward) None Radiocontrast [...] Ankit Spivey - 11/02/2022 11:41 AM CDT [facility] Physical Medicine and Rehabilitation Physical Therapy Progress Note Patient: Consuelo Darby Med Record Number: [id number] Date of : 1980 Age: [age] year [...] monitoring of vitals and cognitive stimulation Modified Maryann: Current Modified [place] Score: 5 AM-PAC 6 Clicks Mobility Raw [...] sit EOB x10 minutes with minimal assist [facility] Goal(s): Patient to discharge to appropriate next [...] frontal gyrus/frontal operculum, consistent with an evolving ruaowbmu-qs-mplafby infarct. 4.No significant midline shift. Similar-appearing size [...] is dictated by Kayla Stevenson MD (residential program director) 1 I, Lonnie Rae MD have personally [...] is dictated by Miranda Bowen MD (residential program director) Oriana Ornelas MD have personally reviewed and [...] > Dictated by Clarisa Cantrell MD (residential program director). IAlexx have personally reviewed and interpreted this [...] is dictated by Miranda Bowen MD (residential program director) Joni Ornelas MD have personally reviewed and [...] right lateral ventricle, and approximately 3-4 mm uexcs-jn-ylgq midline shift, grossly similar to the prior. [...] Report dictated by Tim Major MD (residential program director). I, Jasper Sifuentes MD have personally reviewed [...] be performed given no participation in of SENIOR LITIGATION PARALEGAL evaluation S/p peg placed 11/01 Recommendations: - [...] Jerod Calderon MD Gastroenterology & Hepatology Fellow [facility] Associated attestation - Khanh Metz MD - 11/02/2022 10:43 AM CDT I have personally seen and examined this patient. I agree with the loader malt house's findings, assessment and plan as outlined. Doing well. Some pain at PEG site Site clean, dry. No cellulitis CT reviewed. Good position May start TF's today * Bridgett Zazueta, SENIOR LITIGATION PARALEGAL - 11/02/2022 9:44 AM CDT [facility] Physical Medicine and Rehabilitation Bedside Swallow Assessment Patient: Consuelo Darby Med Record Number: [id number] Date of : 1980 Age: [age] year [...] clear and barely audible. Education/Interventions: While performing SENIOR LITIGATION PARALEGAL, Patient, spouse, mother and father and RN [...] oropharyngeal swallow function to warrant diet upgrade. Special Collections Librarian Goal (s): Other: patient will tolerate least [...] 139 140 CL 108* 105 107 CO2 24 BUN 10 8 8 CREATININE 0.48* 0.56 0.56 CALCIUM 8.6 8.7 8.4 No results for input(s): MG in the last 49802 hours. Recent Labs Component Name 11/02/22 01311/01/22 [...] results for input(s): A1C in the last 31102 hours. Recent Labs Component Name 10/20/22 0302 06/15/22 0757 CHOL 173 204* HDL 42 37* LDLCALC 91 117* TRIG 201* 251* Recent Labs Component Name 06/15/22 0757 TSH 1.873 No results for input(s): CKMB, CKTOTAL, CKMB, TROPONINI, BNP in the last [address] ANGIO BRAIN NECK STROKE Result [...] elopement &/or abduction during hospitalization is minimized 11/01/20220 by Radha Covarrubias RN Outcome: Progressing 2022 1635 by Radha Covarrubias RN Outcome: Progressing Problem: Pain/Discomfort Goal: Patient uses pharmacological and non-pharmacological pain management strategies. 11/01/20220 by Radha Covarrubias RN Outcome: Progressing 2022 [...] referral to outpatient services when appropriate. 2022 1810 by Radha Covarrubias RN Outcome: [...] Total intake will meet estimated nutrient needs 2022 1810 by Radha Covarrubias RN Outcome: Progressing 2022 1635 by Radha Covarrubias RN Outcome: Progressing Problem: Swallowing Goal: LTG - Patient will tolerate the least restrictive diet consistency to allow for safe consumption of daily meals 2022 1810 by Radha Covarrubias RN Outcome: Progressing 2022 1635 by Radha Covarrubias RN Outcome: Progressing Problem: Transfers Goal: STG - Transfer from bed to chair 2022 181 by Radha Covarrubias RN Outcome: [...] Goal: Patient will verbalize control of feelings. 2022 181 by Radha Covarrubias RN Outcome: Progressing 2022 1635 by Radha Covarrubias RN Outcome: Progressing Goal: Patient will respond to interventions when potential or actual loss of control occurs. 2022 181 by Radha Covarrubias RN Outcome: Progressing 2022 1635 by Radha Covarrubias RN Outcome: Progressing Goal: Patient will refrain from provoking others to physical harm. 2022 181 by Radha Covarrubias RN Outcome: [...] be safe and free from injury. 2022 1810 by Radha Covarrubias RN Outcome: [...] 2022 4:07 PM CDT Pt transferred to [facility], DOC and family notified. Four eyes skin check done with Jaye BOGGS, surgical sight to L. Head with carla, incision sight to R. Femoral area, puentes and L. Hand brace noted. * Cass Benjamin SLP - 2022 3:49 PM CDT [facility] Department of Physical Medicine & Rehabilitation Progress Note Patient: Consuelo Darby Med Record Number: [id number] Date of : 1980 Age: [age] year old 11/01/22 1549 Therapy on Hold Therapy on Hold Chart Reviewed; Pt s/p EGD with PEG under general anesthesia. New Order Required for Therapy Cass Lu M.S., [facility]-SENIOR LITIGATION PARALEGAL Speech Language Pathologist [id number] * Jerod Calderon [...] Jerod Calderon MD Gastroenterology & Hepatology Fellow [facility] * Elizabeth William PT - 2022 3:08 PM CDT [facility] Department of Physical Medicine & Rehabilitation Progress Note Patient: Consuelo [employer] Record Number: [id number] Date of : 1980 Age: [age] year old 11/01/22 1508 Missed Visit Missed Visit Procedure Off Floor (going for PEG today) * Ronda Crawley OT - 2022 1:30 PM CDT [facility] Department of Physical Medicine & Rehabilitation Progress Note Patient: Consuelo [employer] Record Number: [id number] Date of : 1980 Age: [age] year [...] results for input(s): MG in the last 69897 hours. Recent Labs Component Name 11/01/22 0003 [...] results for input(s): A1C in the last 29985 hours. Recent Labs Component Name 10/20/22 0302 06/15/22 0757 CHOL 173 204* HDL 42 37* LDLCALC 91 117* TRIG 201* 251* Recent Labs Component Name 06/15/22 0757 TSH 1.873 No results for input(s): CKMB, CKTOTAL, CKMB, TROPONINI, BNP in the last [address] ANGIO BRAIN NECK STROKE Result Date: 10/19/2022 PROCEDURE: CT ANGIO BRAIN NECK STROKE, DATE/TIME OF EXAM: 10/19/2022 8:16 AM, LOCATION [facility] INDICATION: Code Stroke ADDITIONAL CLINICAL INFORMATION: [...] DATE/TIME OF EXAM: 10/19/2022 8:04 AM, LOCATION [facility] INDICATION: Code Stroke ADDITIONAL CLINICAL INFORMATION: [...] occlusion of the R EIA + proximal HIDE WASHER 10/26: reached goal aptt overnight. Neuro exam [...] for occlusion of R EIA and proximal HIDE WASHER. Thrombectomy and patch angioplasty done 10/31: GI [...] occlusion of the R EIA + proximal HIDE WASHER likely iatrogenic Plan Neurological R MCA M1 occlusion s/p MT with TICI 2B recanalization S/P TNK administration. S/P [facility] Malignant MCA syndrome - S/P hemicrani on [...] - Diet: Goal TF Vital 55cc/hr, FWF [id number] - GI ppx: Lansoprozole - Last BM: [...] #Occlusion of the R EIA + proximal HIDE WASHER likely iatrogenic - vascular surgery; OR today for right femoral cutdown, thrombectomy, angiogram with possible intervention, possible vein harvest. - Thrombus sent for pathology on 8/21. Will follow up - DP pulses present DVT ppx: heparin gtt Musculoskeletal No active issues Disposition - PT/OT pending Feeds/Fluids: Tube Feeds. Paused right now Analgesia: tylenol Sedation: none Thromboprophylaxis: scd, heparin gtt HOB: HOB >30 degrees Ulcer Ppx: Lansozprozole 30 Glucose: wnl BR: senna and miralax Indwelling lines: 2 PIVs, NGT Family: updated at bedside Fariha Rosales MD Neurology Resident. PGY-3 [facility]. Associated attestation - Julio Cesar Arriaza [...] Barbara Arteaga - 10/31/2022 4:45 PM CDT Teleprinter offered support to Consuelo, her Salo and mom Sandra; systems engineering manager asked if Consuelo hadgotten her peg today and Salo said she would get it in a day or two. Teleprinter asked how Consuelo's vascular surgery went and Sandra shared that Consuelo's leg was hurting; Consuelo held up 4 fingers when asked to rate her pain scale. RN at bedside and indicated he had just administered pain meds. 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 Yoon Cuadra, PharmD 1:04 PM 10/31/2022 [facility] Vancomycin Guideline * Ronda Crawley OT - 10/31/2022 2:12 PM CDT [facility] Physical Medicine and Rehabilitation Occupational Therapy Splint [...] results for input(s): MG in the last 06969 hours. Recent Labs Component Name 10/31/22 0022 [...] results for input(s): A1C in the last 87178 hours. Recent Labs Component Name 10/20/22 0302 06/15/22 0757 CHOL 173 204* HDL 42 37* LDLCALC 91 117* TRIG 201* 251* Recent Labs Component Name 06/15/22 0757 TSH 1.873 No results for input(s): CKMB, CKTOTAL, CKMB, TROPONINI, BNP in the last [address] ANGIO BRAIN NECK STROKE Result Date: 10/19/2022 PROCEDURE: CT ANGIO BRAIN NECK STROKE, DATE/TIME OF EXAM: 10/19/2022 8:16 AM, LOCATION [facility] INDICATION: Code Stroke ADDITIONAL CLINICAL INFORMATION: [...] DATE/TIME OF EXAM: 10/19/2022 8:04 AM, LOCATION [facility] INDICATION: Code Stroke ADDITIONAL CLINICAL INFORMATION: [...] Other (Comment) (has not been assessed by SENIOR LITIGATION PARALEGAL) Pain affectingintake: No Estimated Needs: KCAL: [phone] (25-30kcal/kg of IBW) Protein (g): 66-77 (1.2-1.4gm/kg [...] occlusion of the R EIA + proximal HIDE WASHER 10/26: reached goal aptt overnight. Neuro exam [...] for occlusion of R EIA and proximal HIDE WASHER. Thrombectomy and patch angioplasty done Interval History: [...] occlusion of the R EIA + proximal HIDE WASHER likely iatrogenic Plan Neurological R MCA M1 occlusion s/p MT with TICI 2B recanalization S/P TNK administration. S/P [facility] Malignant MCA syndrome - S/P hemicrani on [...] after hemicrani on 10/20. Extubated 10/24, to [place] - Bronchial hygiene q4h, vest and if [...] - Diet: Goal TF Vital 55cc/hr, FWF [id number] - GI ppx: Lansoprozole - Last BM: [...] #Occlusion of the R EIA + proximal HIDE WASHER likely iatrogenic - vascular surgery; OR today [...] bedside Fariha Rosales MD Neurology Resident. PGY-3 [facility]. Associated attestation - Julio Cesar Arriaza [...] frontal gyrus/frontal operculum, consistent with an evolving sdsmhkzq-nc-lalwlck infarct. 4.No significant midline shift. Similar-appearing size [...] is dictated by Kayla Stevenson MD (residential program director) 1 ILonnie MD have personally reviewed and [...] is dictated by Miranda Bowen MD (residential program director) Oriana Ornelas MD have personally reviewed and [...] > Dictated by Clarisa Cantrell MD (residential program director). IAlexx have personally reviewed and interpreted this [...] is dictated by Miranda Bowen MD (residential program director) Joni Ornelas MD have personally reviewed and [...] right lateral ventricle, and approximately 3-4 mm lnnth-iu-mhks midline shift, grossly similar to the prior. [...] Report dictated by Tim Major MD (residential program director). I, Jasper Sifuentes MD have personally reviewed [...] be performed given no participation in of SENIOR LITIGATION PARALEGAL evaluation Patient seems to have a functional [...] Jerod Calderon MD Gastroenterology & Hepatology Fellow [facility] Associated attestation - Khanh Metz MD - 10/31/2022 2:27 PM CDT I have personally seen and examined this patient. I agree with the loader malt house's findings, assessment and plan as outlined. In [...] is dictated by Miranda Bowen MD (residential program director) Oriana Ornelas MD have personally reviewed and [...] > Dictated by Clarisa Cantrell MD (residential program director). IAlexx have personally reviewed and interpreted this [...] is dictated by Miranda Bowen MD (residential program director) Joni Ornelas MD have personally reviewed and [...] right lateral ventricle, and approximately 3-4 mm cuibp-zv-gogf midline shift, grossly similar to the prior. [...] Report dictated by Tim Major MD (residential program director). IJasper MD have personally reviewed and interpreted [...] occlusion of the R EIA + proximal HIDE WASHER extending into the profunda with reconstitution identified [...] ABIs. Message sent to schedulers, please call [phone] to reschedule. Patient can call [phone] for any incision or wound concerns. Patient [...] Information Primary Emergency Contact: Hi Darby Address: [address] [place] [phone] [facility] Relation: Spouse Secondary Emergency Contact: Sandra Disla [facility] Mobile Relation: Mother Transportation at Discharge: Ambulance: READMISSION RISK SCORE is 15 at 7:22 PM 10/30/2022.: Name: Bulmaro Ochoa RN BSN fleet dispatch manager [phone] * Vickie Muller MD - 10/30/2022 6:26 PM CDT Stroke Service Daily Progress Note Consuelorobert Darby Age: [age] year old Date of [...] bilaterally Labs: Recent Labs Component Name 10/30/221610/29/22 0010 10/27/22202810/23/22 [...] results for input(s): MG in the last 25784 hours. Recent Labs Component Name 10/30/22 0017 [...] results for input(s): A1C in the last 69961 hours. Recent Labs Component Name 10/20/22 0302 06/15/22 0757 CHOL 173 204* HDL 42 37* LDLCALC 91 117* TRIG 201* 251* Recent Labs Component Name 06/15/22 0757 TSH 1.873 No results for input(s): CKMB, CKTOTAL, CKMB, TROPONINI, BNP in the last [address] ANGIO BRAIN NECK STROKE Result Date: 10/19/2022 PROCEDURE: CT ANGIO BRAIN NECK STROKE, DATE/TIME OF EXAM: 10/19/2022 8:16 AM, LOCATION [facility] INDICATION: Code Stroke ADDITIONAL CLINICAL INFORMATION: [...] DATE/TIME OF EXAM: 10/19/2022 8:04 AM, LOCATION [facility] INDICATION: Code Stroke ADDITIONAL CLINICAL INFORMATION: [...] Leigh SLP - 10/30/2022 1:30 PM CDT [facility] Department of Physical Medicine & Rehabilitation Progress Note Patient: Consuelo Darby Med Record Number: [id number] Date of : 1980 Age: [age] year old 10/30/22 1300 Therapy on Hold Therapy on Hold Surgery;Chart Reviewed;New Order Required for Therapy Jerry Valle M.A., [facility]-SENIOR LITIGATION PARALEGAL Speech Language Pathologist [id number] * Ronda Crawley OT - 10/30/2022 1:14 PM CDT [facility] Department of Physical Medicine & Rehabilitation Progress Note Patient: Consuelo Darby Med Record Number: [id number] Date of : 1980 Age: [age] year [...] occlusion of the R EIA + proximal HIDE WASHER 10/26: reached goal aptt overnight. Neuro exam [...] for occlusion of R EIA and proximal HIDE WASHER Objective BP 139/74 Pulse 80 Temp 98.1 [...] occlusion of the R EIA + proximal HIDE WASHER likely iatrogenic Plan Neurological R MCA M1 occlusion s/p MT with TICI 2B recanalization S/P TNK administration. S/P [facility] Malignant MCA syndrome - S/P hemicrani on [...] after hemicrani on 10/20. Extubated 10/24, to [place] - Bronchial hygiene q4h, vest and if [...] - Diet: Goal TF Vital 55cc/hr, FWF 930ker1c - GI ppx: Lansoprozole - Last BM: [...] #Occlusion of the R EIA + proximal HIDE WASHER likely iatrogenic - vascular surgery; OR today [...] bedside Fariha Rosales MD Neurology Resident. PGY-3 [facility]. * Edgardo Suarez RN - 10/30/2022 10:53 AM CDT HOB elevated, Neuro checks, NPO for procedure, doppler RLE pedals. * Edgardo Suarez RN - 10/30/2022 9:50 AM CDT Report given to TYPEWRITER ASSEMBLY AND PARTS INSPECTOR. Pt trans to OR with RN and [...] thrombectomy - maintain normothermic and euglycemic - PT/OT/SENIOR LITIGATION PARALEGAL - outpt follow-up for 3mm left upper [...] of 60-80) 10/26 - Reached PTT goal, upentes catheter placed 10/28 - Rash over R flank, benadryl and hydrocortisone cream 10/30 - In OR with vascular surgery for occlusion of R EIA and proximal HIDE WASHER Objective BP 129/61 Pulse 78 Temp 98.4 [...] Component Value Units Date/Time VANCOMYCIN LEVEL TROUGH [[id number]] Order Status: Sent Specimen: Blood PTT [facility] [[id number]] (Abnormal) Collected: 10/30/22236 Order Status: Completed Specimen: Blood Updated: 10/30/22325 APTT 77.7 Seconds Comment: Suggested therapeutic range for full dose I.V. unfractionated heparin therapy for venous thromboembolism is 71 to 109 seconds. PT-INR [facility] [[id number]] (Normal) Collected: 10/30/22236 Order Status: Completed Specimen: Blood Updated: 10/30/22325 PT 13.6 Seconds INR 1.0 Comment: The suggested therapeutic range for standard coumadin (warfarin) therapy is an INR of 2.0-3.0. For high-risk patients (Mechanical Mitral Valve Prosthesis, etc.), the suggested prophylactic therapeutic range is an INR of 2.5-3.5. PTT [facility] [[id number]] Order Status: Sent Specimen: Blood DIFFERENTIAL MANUAL [[id number]] (Abnormal) Collected: 10/30/2216 Order Status: Completed Specimen: [...] Increased Anisocytosis Occasional Macrocytosis Few Polychromasia Few Rios-Funkley Bodies Rare Ovalocytes Rare Eduardo Cells Occasional Smudge Cells Rare Comment Platelet Platelet clumpled on the smear but appear increased. HCG BETA BLOOD QUANTITATIVE [[id number]] Collected: 10/30/2216 Order Status: Completed Specimen: Blood [...] used for any other purposes. PHOSPHORUS BLOOD [[id number]] (Normal) Collected: 10/30/2216 Order Status: Completed Specimen: Blood Updated: 10/30/22102 Phosphorus 5.1 mg/dL MAGNESIUM BLOOD [[id number]] (Normal) Collected: 10/30/2216 Order Status: Completed Specimen: Blood Updated: 10/30/22102 Magnesium 2.1 mg/dL BASIC METABOLIC PANEL (CALCIUM TOTAL) [[id number]] (Abnormal) Collected: 10/30/2216 Order Status: Completed Specimen: Blood Updated: 10/30/22102 BUN 11 mg/dL Creatinine 0.61 mg/dL Sodium 141 mmol/L Potassium 4.0 mmol/L Chloride 107 mmol/L CO2 25 mmol/L Glucose 134 mg/dL Calcium 8.8 mg/dL Anion Gap 13 BUN/Creatinine Ratio 18 Osmolality Calculated 293 mOsm/kg eGFR by CKD-EPI >90 mL/min/1.73 m2 CBC W AUTO DIFFERENTIAL [[id number]] (Abnormal) Collected: 10/30/2216 Order Status: Completed Specimen: [...] Auto 1.0 /100 WBC HCG URINE QUALITATIVE [[id number]] Collected: 10/30/2220 Order Status: Canceled Specimen: Urine Updated: 10/30/2226 MYCOPLASMA PNEUMONIAE AB IGM [[id number]] Collected: 10/27/221157 Order Status: Completed Specimen: Blood [...] more than 12 months post-infection. Performed By: [facility] [address] [place] [id number] Bilingual Receptionist: Boo Bond MD, PhD CLIA Number: [id number] MYCOPLASMA PNEUMONIAE AB IGG [[id number]] Collected: 10/27/221157 Order Status: Completed Specimen: Blood [...] other is below 0.20 U/L. Performed By: [facility] [address] [place] [address] Bilingual Receptionist: Boo Bond MD, PhD CLIA Number: [id number] BARTONELLA HENSELAE ANTIBODY IGM [[id number]] Collected: 10/27/221157 Order Status: Completed Specimen: Blood [...] developed and its performance characteristics determined by [facility]. It has not been cleared or approved by the [place] Food and Drug Administration. This test was performed in a CLIA certified laboratory and is intended for clinical purposes. Performed By: [facility] [address] [place] [address] Bilingual Receptionist: Boo Bond MD, PhD CLIA Number: [id number] BARTONELLA HENSELAE ANTIBODY IGG [[id number]] Collected: 10/27/221157 Order Status: Completed Specimen: Blood [...] developed and its performance characteristics determined by [facility]. It has not been cleared or approved by the [place] Food and Drug Administration. This test was performed in a CLIA certified laboratory and is intended for clinical purposes. Performed By: [facility] [address] [place] [address] Bilingual Receptionist: Boo Bond MD, PhD CLIA Number: [id number] CHLAMYDIA ANTIBODY IGG/IGM PANEL [[id number]] Collected: 10/27/22 1158 Order Status: Completed Specimen: [...] developed and its performance characteristics determined by [facility]. It has not been cleared or approved by the US Food and Drug Administration. This test was performed in a CLIA certified laboratory and is intended for clinical purposes. Performed By: [facility] [address] [place] [address] Bilingual Receptionist: Boo Bond MD, PhD CLIA Number: [id number] PTT [facility] [[id number]] (Abnormal) Collected: 10/29/222001 Order Status: Completed Specimen: Blood Updated: 10/29/22 204 APTT 70.7 Seconds Comment: Suggested therapeutic range for full dose I.V. unfractionated heparin therapy for venous thromboembolism is 71 to 109 seconds. PTT [facility] [[id number]] (Abnormal) Collected: 10/29/22 1541 Order Status: Completed Specimen: Blood Updated: 10/29/22 1628 APTT 64.4 Seconds Comment: Suggested therapeutic range for full dose I.V. unfractionated heparin therapy for venous thromboembolism is 71 to 109 seconds. PTT [facility] [[id number]] (Abnormal) Collected: 10/29/22 1004 Order Status: Completed [...] is dictated by Kayla Stevenson MD (residential program director) 1 I, Lonnie Rae MD have personally [...] is dictated by Miranda Bowen MD (residential program director) Oriana Ornelas MD have personally reviewed and [...] > Dictated by Clarisa Cantrell MD (residential program director). [employer]Alexx have personally reviewed and interpreted this [...] is dictated by Miranda Bowen MD (residential program director) Joni Ornelas MD have personally reviewed and [...] right lateral ventricle, and approximately 3-4 mm rkgdb-hu-ngae midline shift, grossly similar to the prior. [...] Report dictated by Tim Major MD (residential program director). Jasper Ornelas MD have personally reviewed and [...] report is dictated by Miranda Bowen MD(residential program director) Jasper Ornelas MD have personally reviewed and [...] hemorrhage. Report dictated by Lorenzo Horta MD (resident associate). ILonnie MD have personally reviewed and interpreted [...] prior. > Dictated by Bassam Jovel M.D. (resident associate) Gonzalez Ornelas MD have personally reviewed and [...] 2022 approximately 1225 hours. > Interpreting Provider: oJni Fabian MD on 10/20/2022 12:[address] [...] febrile Gastrointestinal # Hx of GERD - SENIOR LITIGATION PARALEGAL swallow evaluation: when stable - Diet: NG [...] #Occlusion of the R EIA + proximal HIDE WASHER likely iatrogenic - vascular surgery following - [...] bedside Cordero Kyle Johan Medical Student, MS3 [facility]. Associated attestation - Julio Cesar Arriaza [...] is dictated by Miranda Bowen MD (residential program director) Oriana Ornelas MD have personally reviewed and [...] discussed with Dr. Mohr by Dr. Clarisa aCntrell at 10/25/2022 3:03 PM with read back comprehension and verification. > Dictated by Clarisa Cantrell MD (residential program director). [employer]Alexx have personally reviewed and interpreted this [...] is dictated by Miranda Bowen MD (residential program director) Joni Ornelas MD have personally reviewed and [...] right lateral ventricle, and approximately 3-4 mm [id number]-en-gsxx midline shift, grossly similar to the prior. [...] Report dictated by Tim Major MD (residential program director). I, Jasper Sifuentes MD have personally reviewed [...] occlusion of the R EIA + proximal HIDE WASHER extending into the profunda with reconstitution identified [...] occlusion of the R EIA + proximal HIDE WASHER 10/26: reached goal aptt overnight. Neuro exam [...] occlusion of the R EIA + proximal HIDE WASHER likely iatrogenic Plan Neurological R MCA M1 occlusion s/p MT with TICI 2B recanalization S/P TNK administration. S/P [facility] Malignant MCA syndrome - S/P hemicrani on [...] after hemicrani on 10/20. Extubated 10/24, to CO - Bronchial hygiene q4h, vest and if [...] - Diet: Goal TF Vital 55cc/hr, FWF [id number] - GI ppx: Lansoprozole - Last BM: [...] #Occlusion of the R EIA + proximal HIDE WASHER likely iatrogenic - vascular surgery following - [...] bedside Paris Mohr MD Neurology Resident. PGY-3 [facility]. Associated attestation - Shahbaz Bowen MD [...] 10/25: Incidentally clot found in the R HIDE WASHER, non-occlusive, with good pulses peripherally. 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 Recent Labs Component Name 10/29/22910/28/22 0125 10/27/22 0054 PHOS 4.8 3.9 3.5 [...] results for input(s): A1C in the last 08940 hours. Recent Labs Component Name 10/20/22 0302 06/15/22 0757 CHOL 173 204* HDL 42 37* LDLCALC 91 117* TRIG 201* 251* Recent Labs Component Name 06/15/22 0757 TSH 1.873 No results for input(s): CKMB, CKTOTAL, CKMB, TROPONINI, BNP in the last [address] ANGIO BRAIN NECK STROKE Result Date: 10/19/2022 PROCEDURE: CT ANGIO BRAIN NECK STROKE, DATE/TIME OF EXAM: 10/19/2022 8:16 AM, LOCATION [facility] INDICATION: Code Stroke ADDITIONAL CLINICAL INFORMATION: [...] DATE/TIME OF EXAM: 10/19/2022 8:04 AM, LOCATION [facility] INDICATION: Code Stroke ADDITIONAL CLINICAL INFORMATION: [...] swallow. TF - Consider PEG tube - SENIOR LITIGATION PARALEGAL swallow evaluation Renal/Electrolytes ? No acute issues [...] Hamm COTA - 10/29/2022 1:02 PM CDT [facility] Physical Medicine and Rehabilitation Occupational Therapy Splint [...] displayed. Recent Labs Component Name 10/29/22 0010 10/28/2212410/27/2253 NA 138 138 138 POTASSIUM 4.1 3.5 3.5 CL 106 106 107 CO2 24 26 24 BUN 9 9 11 CREATININE 0.54* 0.54* 0.53* CALCIUM 8.8 8.6 8.4 MAGNESIUM 2.0 2.0 2.0 PHOS 4.8 3.9 3.5 Recent Labs Component Name 10/19/2282306/23 0757 12/09/18 0812 PROT 7.7 7.5 - [...] is dictated by Miranda Bowen MD (residential program director) Oriana Ornelas MD have personally reviewed and [...] > Dictated by Clarisa Cantrell MD (residential program director). Alexx Ornelas have personally reviewed and interpreted [...] is dictated by Miranda Bowen MD (residential program director) Joni Ornelas MD have personally reviewed and [...] right lateral ventricle, and approximately 3-4 mm nsdtp-cn-vgjf midline shift, grossly similar to the prior. [...] Report dictated by Tim Major MD (residential program director). Jasper Ornelas MD have personally reviewed and [...] occlusion of the R EIA + proximal HIDE WASHER extending into the profunda with reconstitution identified [...] Hamm COTA - 10/28/2022 3:25 PM CDT [facility] Physical Medicine and Rehabilitation Occupational Therapy Splint [...] ASSESSMENT/PLAN Indication: endocarditis c/b septic emboli to RELATIONSHIP EXECUTIVE Goal trough: 15-20 mcg/mL Assessment: ?? Day [...] TBD Lucretia Barrett PharmD 10/28/2022 3:16 PM [facility] Vancomycin Guideline * Valdez Oshea RN - [...] results for input(s): MG in the last 66299 hours. Recent Labs Component Name 10/28/22 0125 [...] results for input(s): A1C in the last 19980 hours. Recent Labs Component Name 10/20/22 0302 06/15/22 0757 CHOL 173 204* HDL 42 37* LDLCALC 91 117* TRIG 201* 251* Recent Labs Component Name 06/15/22 0757 TSH 1.873 No results for input(s): CKMB, CKTOTAL, CKMB, TROPONINI, BNP in the last [address] ANGIO BRAIN NECK STROKE Result Date: 10/19/2022 PROCEDURE: CT ANGIO BRAIN NECK STROKE, DATE/TIME OF EXAM: 10/19/2022 8:16 AM, LOCATION [facility] INDICATION: Code Stroke ADDITIONAL CLINICAL INFORMATION: [...] DATE/TIME OF EXAM: 10/19/2022 8:04 AM, LOCATION [facility] INDICATION: Code Stroke ADDITIONAL CLINICAL INFORMATION: [...] swallow. TF - Consider PEG tube - SENIOR LITIGATION PARALEGAL swallow evaluation Renal/Electrolytes ? No acute issues [...] occlusion of the R EIA + proximal HIDE WASHER 10/26: reached goal aptt overnight. Neuro exam [...] post MT and post TNK monitoring. S/P C on 10/20 and remained intubated after procedure. 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 Differentials include infective endocarditis, non-infective endocarditis and fibroelastoma Found to have occlusion of the R EIA + proximal HIDE WASHER likely iatrogenic Plan Neurological R MCA M1 [...] after hemicrani on 10/20. Extubated 10/24, to CO - Bronchial hygiene q4h, vest and if [...] - Diet: Goal TF Vital 55cc/hr, FWF [id number] - GI ppx: Lansoprozole - Last BM: 10/22 - BM regimen: senna and miralax Endocrine Patient was taking oral contraceptive home medication. - A1c 6.0 - Accuchecks Hematology Recent Labs Component Name 10/27/22202810/27/22 0054 WBC 21.1* 19.5* HGB 7.6* 8.0* HCT 24.2* 24.6* PLTCOUNT 486* 519* PLATELET - Occasional* #Occlusion of the R EIA + proximal HIDE WASHER likely iatrogenic - vascular surgery following - [...] bedside Tim Marinelli MD Neurology Resident. PGY-4 [facility]. Associated attestation - Shahbaz Bowen MD [...] 10/25: Incidentally clot found in the R HIDE WASHER, non-occlusive, with good pulses peripherally. 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 Neuro exam [...] occlusion of the R EIA + proximal HIDE WASHER likely iatrogenic Plan Neurological ICP 12-21 LEONCIO [...] after hemicrani on 10/20. Extubated 10/24, to CO - Bronchial hygiene q4h, vest and if [...] - Diet: Goal TF Vital 55cc/hr, FWF [id number] - GI ppx: Lansoprozole - Last BM: 10/22 - BM regimen: senna and miralax Endocrine Patient was taking oral contraceptive home medication. - A1c 6.0 - Accuchecks Hematology Recent Labs Component Name 10/27/22 0054 WBC 19.5* HGB 8.0* HCT 24.6* PLTCOUNT 519* PLATELET Occasional* #Occlusion of the R EIA + proximal HIDE WASHER likely iatrogenic - vascular surgery following - [...] bedside Paris Mohr MD Neurology Resident. PGY-3 [facility]. Associated attestation - Shahbaz Bowen MD [...] 10/25: Incidentally clot found in the R HIDE WASHER, non-occlusive, with good pulses peripherally. 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 Continuing with ceftriaxone and vanc. Critical Care 30-74 minutes: 40 mins (Time involved in the performance of separately billable procedures, teaching, or reviewing educational material was not counted towards critical care time.) * Sima Gardner, SENIOR LITIGATION PARALEGAL - 10/27/2022 3:56 PM CDT [facility] Physical Medicine and Rehabilitation Swallow Treatment Patient: Consuelo Darby [facility] Record Number: [id number] Date of : 1980 Age: [age] year [...] Pharyngeal: (P) Moderate;Severe (Suspected) Treatment/Education/Interventions: While performing SENIOR LITIGATION PARALEGAL, Patient and spouse was instructed in: results of swallow evaluation and recommendations for NPO status given patient's elevated aspiration risk. Patient demonstrated Questionable understanding of instructions given. Nurse contacted regarding results of treatment session. INFORMED CONSENT TO TREATMENT: Plan of care is discussed but patient with questionable understanding. Short Term Goals Patient will participate in an instrumental swallow assessment as appropriate. Chcf Goal (s): Patient to discharge to appropriate [...] results for input(s): MG in the last 72039 hours. Recent Labs Component Name 10/27/22 0054 [...] results for input(s): A1C in the last 43479 hours. Recent Labs Component Name 10/20/22 0302 06/15/22 0757 CHOL 173 204* HDL 42 37* LDLCALC 91 117* TRIG 201* 251* Recent Labs Component Name 06/15/22 075 TSH 1.873 No results for input(s): CKMB, CKTOTAL, CKMB, TROPONINI, BNP in the last [address] ANGIO BRAIN NECK STROKE Result Date: 10/19/2022 PROCEDURE: CT ANGIO BRAIN NECK STROKE, DATE/TIME OF EXAM: 10/19/2022 8:16 AM, LOCATION [facility] INDICATION: Code Stroke ADDITIONAL CLINICAL INFORMATION: [...] - NPO until passes swallow. TF - SENIOR LITIGATION PARALEGAL swallow evaluation Renal/Electrolytes ? No acute issues [...] Extended Emergency Contact Information Primary Emergency Contact: RickHi calvo Address: [address] [place] [id number] [facility] Relation: Spouse Secondary Emergency Contact: Sandra Disla [facility] Mobile Relation: Mother Transportation at Discharge: Ambulance: READMISSION RISK SCORE is 15 at 2:22 PM 10/27/2022.: Name: Bulmaro Ochoa RN BSN fleet dispatch manager [phone] * Agnes Erazo PT - 10/27/2022 11:46 AM CDT [facility] Physical Medicine and Rehabilitation Physical Therapy Re-evaluation Note Patient: Consuelo Darby Med Record Number: [id number] Date of : 1980 Age: [age] year [...] and balance activities Modified Maryann: Current Modified Maryann Score: 5 [...] sit EOB x10 minutes with minimal assist Special Collections Librarian Goal(s): Patient to discharge to appropriate next [...] Crawley, OT - 10/27/2022 8:57 AM CDT [facility] Physical Medicine and Rehabilitation Occupational Therapy Re-Evaluation Note Patient: Consuelo Darby Med Record Number: [id number] Date of : 1980 Age: [age] year [...] Additional Information (OT): 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 Modified [place]: Current Modified [place] Score: 5 AM-PAC 6 Clicks Daily Activity [...] with good endurance and with minimal pain Chcf Goal(s): Patient to discharge to appropriate next [...] within reach, with family in room, with RNValdez. * Liam Parks MD - 10/27/2022 8:46 AM CDT [facility] Infectious Diseases Progress Note Date of Admission: 10/19/2022 7:53 AM Length of Stay: Day 8 Room: [facility]/ Attending: Emir Vail MD Subjective Since last [...] Name 10/19/22 0824 06/15/22 0757 12/09/18 0812 05/16/19 205503/01/16 0817 02/18/16 1209 07/07/13 2319 ALKPHOS 52 [...] will need to follow up in the [facility] ID clinic; we will schedule appointment While on outpatient IV antibiotics, they will need weekly CBC with diff, CMP to monitor for adverseevents These labs will need to be faxed to [phone] (attention: Liam Parks MD) Infectious Disease will [...] Liam Parks MD (PGY-5) Infectious Diseases Fellow [facility] Pager: [phone] ID Clinic Associated attestation - Arturo Delacruz [...] of care. . Arturo Delacruz MD PhD Oxyacetylene Welder [facility] Infectious Disease * Consuelo Prado - 10/27/2022 8:32 AM CDT Images from [...] Value Units Date/Time BARTONELLA HENSELAE ANTIBODY IGM [[id number]] Order Status: Sent Specimen: Blood BARTONELLA HENSELAE ANTIBODY IGG [[id number]] Order Status: Sent Specimen: Blood Q FEVER IGG/IGM AB PANEL RFLX TITER [[id number]] Order Status: Sent Specimen: Blood CHLAMYDIA ANTIBODY IGG/IGM PANEL [[id number]] Order Status: Sent Specimen: Blood MYCOPLASMA PNEUMONIAE AB IGG [[id number]] Order Status: Sent Specimen: Blood MYCOPLASMA PNEUMONIAE AB IGM [[id number]] Order Status: Sent Specimen: Blood PTT [facility] [[id number]] Order Status: Sent Specimen: Blood GLUCOSE - POINT OF CARE [[id number]] (Abnormal) Collected: 10/27/22632 Order Status: Completed Specimen: Blood Updated: 10/27/22638 Glucose WB/POC 128 mg/dL Specimen Type Cap Fingerstick PTT [facility] [[id number]] (Abnormal) Collected: 10/27/22607 Order Status: Completed Specimen: Blood Updated: 10/27/22636 APTT 58.6 Seconds Comment: Suggested therapeutic range for full dose I.V. unfractionated heparin therapy for venous thromboembolism is 71 to 109 seconds. PT-INR [facility] [[id number]] (Normal) Collected: 10/27/22607 Order Status: Completed Specimen: Blood Updated: 10/27/22635 PT 13.7 Seconds INR 1.1 Comment: The suggested therapeutic range for standard coumadin (warfarin) therapy is an INR of 2.0-3.0. For high-risk patients (Mechanical Mitral Valve Prosthesis, etc.), the suggested prophylactic therapeutic range is an INR of 2.5-3.5. DIFFERENTIAL MANUAL [[id number]] (Abnormal) Collected: 10/27/2253 Order Status: Completed Specimen: [...] Rare Large Platelet Count Occasional PHOSPHORUS BLOOD [[id number]] (Normal) Collected: 10/27/2253 Order Status: Completed Specimen: Blood Updated: 10/27/22127 Phosphorus 3.5 mg/dL MAGNESIUM BLOOD [[id number]] (Normal) Collected: 10/27/2253 Order Status: Completed Specimen: Blood Updated: 10/27/22127 Magnesium 2.0 mg/dL BASIC METABOLIC PANEL (CALCIUM TOTAL) [[id number]] (Abnormal) Collected: 10/27/2253 Order Status: Completed Specimen: Blood Updated: 10/27/22127 BUN 11 mg/dL Creatinine 0.53 mg/dL Sodium 138 mmol/L Potassium 3.5 mmol/L Chloride 107 mmol/L CO2 24 mmol/L Glucose 137 mg/dL Calcium 8.4 mg/dL Anion Gap 11 BUN/Creatinine Ratio 21 Osmolality Calculated 288 mOsm/kg eGFR by CKD-EPI >90 mL/min/1.73 m2 PTT [facility] [[id number]] (Abnormal) Collected: 10/27/2253 Order Status: Completed Specimen: Blood Updated: 10/27/22124 APTT 59.5 Seconds Comment: Suggested therapeutic range for full dose I.V. unfractionated heparin therapy for venous thromboembolism is 71 to 109 seconds. CBC W AUTO DIFFERENTIAL [[id number]] (Abnormal) Collected: 10/27/22 0054 Order Status: Completed Specimen: Blood Updated: 10/27/22 0123 WBC 19.5 10??3/uL RBC 2.60 10??6/uL Hemoglobin 8.0 g/dL Hematocrit 24.6 % MCV 94.6 fL MCH 30.8 pg MCHC 32.5 g/dL RDW-SD 45.8 fL RDW-CV 13.5 % Platelet Count 519 10??3/uL MPV 10.1 fL nRBC Absolute 0.08 10??3/uL nRBC Auto 0.4 /100 WBC PTT [facility] [[id number]] (Abnormal) Collected: 10/26/222 Order Status: Completed Specimen: Blood Updated: 10/26/222145 APTT 65.0 Seconds Comment: Suggested therapeutic range for full dose I.V. unfractionated heparin therapy for venous thromboembolism is 71 to 109 seconds. GLUCOSE - POINT OF CARE [[id number]] (Abnormal) Collected: 10/26/221832 Order Status: Completed Specimen: Blood Updated: 10/26/224 Glucose WB/POC 122 mg/dL Specimen Type Cap Fingerstick FACTOR V LEIDEN MUTATION PANEL [[id number]] Collected: 10/21/22 0459 Order Status: Completed Specimen: Blood Updated: 10/26/22 1746 Factor V Leiden Source Whole Blood Factor V Leiden PCR/FRET Negative Comment: Indication for testing: Assess genetic risk for thrombosis. NEGATIVE: The factor V Leiden variant, c.1601G>A; p.Khi672Xix, was not detected. This does not exclude [...] function in the F5 gene variant c.1601G>A (p.Mvn139Rzw). Legacy nomenclature: [id number] (1691G>A) CLINICAL SENSITIVITY: 20-50 percent of individuals with an isolated VTE have the FVL variant. METHODOLOGY: Polymerase chain reaction and fluorescence monitoring. ANALYTICAL SENSITIVITY AND SPECIFICITY: 99 percent. LIMITATIONS: Diagnostic errors can occur due to rare sequence variations. F5 gene mutations, other than p.Ewd007Ipx, will not be detected. This test was developed and its performance characteristics determined by [facility]. It has not been cleared or approved by the US Food and Drug Administration. This test was performed in a CLIA certified laboratory and is intended for clinical purposes. Counseling and informed consent are recommended for genetic testing. Consent forms are available online. Performed By: [facility] [address] [place] [address] Bilingual Receptionist: Boo Bond MD, PhD CLIA Number: [id number] PTT [facility] [[id number]] (Abnormal) Collected: 10/26/22 1559 Order Status: Completed Specimen: Blood Updated: 10/26/22 1635 APTT 52.9 Seconds Comment: Suggested therapeutic range for full dose I.V. unfractionated heparin therapy for venous thromboembolism is 71 to 109 seconds. GLUCOSE - POINT OF CARE [[id number]] (Abnormal) Collected: 10/26/22 1215 Order Status: Completed Specimen: Blood Updated: 10/26/22 1216 Glucose WB/POC 122 mg/dL Specimen Type Cap Fingerstick [facility]TT [facility] [[id number]] Order Status: Canceled Specimen: Blood PTT [facility] [[id number]] (Abnormal) Collected: 10/26/22 1124 Order Status: Completed Specimen: Blood Updated: 10/26/22 1155 APTT 51.1 Seconds Comment: Suggested therapeutic range for full dose I.V. unfractionated heparin therapy for venous thromboembolism is 71 to 109 seconds. CARDIOLIPIN ANTIBODY IGA [[id number]] Collected: 10/23/222028 Order Status: Completed Specimen: Blood Updated: 10/26/22 1011 Cardiolipin Antibody IgA <10 APL Comment: INTERPRETIVE INFORMATION: Cardiolipin Antibodies, IgA <=11 APL: Negative 12-19 APL: Indeterminate 20-80 APL: Low to Moderately Positive 81 APL or above: High Positive Performed By: [facility] [address] [place] [address] Bilingual Receptionist: Boo Bond MD, PhD CLIA Number: [id number] VANCOMYCIN LEVEL TROUGH [[id number]] (Normal) Collected: 10/26/22 0838 Order Status: Completed [...] results were discussed with stroke resident Dr Menedz by Dr. Miranda Bowen at8:05 AM on 10/26/2022 with read back confirmation and closed-loop communication. The report is dictated by Miranda Bowen MD (residential program director) I, Oriana Suarez MD have personally reviewed [...] > Dictated by Clarisa Cantrell MD (residential program director). [employer]Alexx have personally reviewed and interpreted this [...] is dictated by Miranda Bowen MD (residential program director) Joni Ornelas MD have personally reviewed and [...] right lateral ventricle, and approximately 3-4 mm ltgyh-xl-xbsb midline shift, grossly similar to the prior. [...] Report dictated by Tim Major MD (residential program director). Jasper Ornelas MD have personally reviewed and [...] report is dictated by Miranda Bowen MD(residential program director) Jasper Ornelas MD have personally reviewed and [...] hemorrhage. Report dictated by Lorenzo Horta MD (resident associate). ILonnie MD have personally reviewed and interpreted [...] prior. > Dictated by Bassam Jovel M.D. (resident associate) Gonzalez Ornelas MD have personally reviewed and [...] febrile Gastrointestinal # Hx of GERD? - SENIOR LITIGATION PARALEGAL swallow evaluation:??when stable - Diet:??NG tube - [...] at bedside? Consuelo Brown Medical Student, MS3 [facility]. * Emir Vail MD - 10/27/2022 [...] is dictated by Miranda Bowen MD (residential program director) Oriana Ornelas MD have personally reviewed and [...] > Dictated by Clarisa Cantrell MD (residential program director). Alexx Ornelas have personally reviewed and interpreted [...] is dictated by Miranda Bowen MD (residential program director) Joni Ornelas MD have personally reviewed and [...] right lateral ventricle, and approximately 3-4 mm vskxz-sn-bgxk midline shift, grossly similar to the prior. [...] Report dictated by Tim Major MD (residential program director). IJasper MD have personally reviewed and interpreted [...] occlusion of the R EIA + proximal HIDE WASHER extending into the profunda with reconstitution identified [...] status: Occupational History ??? 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 Smoking status: [...] appropriately interactive. NEURO: Following commands. Good hand birthing nurse bilaterally. MSK: No synovitis, dactylitis, or enthesitis. [...] Range INR 0.9 0.9 - 1.2 Device [id number] Juvenile Officer ID [id number] EKG 12-LEAD Result Value Ref Range Ventricular Rate 129 BPM Atrial Rate 129 BPM P-R Interval 134 ms QRS Duration ms 90 ms Q-T Interval ms 318 ms QTC Calculation (Bezet) 465 ms Calculated P [place] 55 degrees Calculated R [place] 13 degrees Calculated T [place] 5 degrees Interpretation EKG SINUS TACHYCARDIA OTHERWISE NORMAL ECG NO PREVIOUS ECGS AVAILABLE Confirmed by FLORA OTT MD ([id number]) on 10/19/2022 5:38:23 PM CBC W AUTO [...] by CKD-EPI >90 >=90 mL/min/1.73 m2 PT-INR [facility] Result Value Ref Range PT 12.3 12.1 [...] BUBBLE STUDY Result Value Ref Range BSA 2.4142151 m2 LV biplane EF 64 54 - [...] Age Predicted HR 181 Target HR 154 [id number] 6.054 cm [id number] 5.318 cm LEFT VENTRICLE STROKE VOLUME BIPLANE [...] right lateral ventricle, and approximately 3-4 mm qwzrv-nd-rbib midline shift, grossly similar to the prior. [...] Jasso. ?? Josue Castellanos MD Rheumatology Fellow [facility] Associated attestation - Gonzalez Jasso MD [...] Rheumatology Fellowship Program Department of Internal Medicine [facility] * Liv Lugo MD - 10/26/2022 [...] Erazo, PT - 10/26/2022 1:15 PM CDT [facility] Department of Physical Medicine & Rehabilitation Progress Note Patient: Consuelo Darby Med Record Number: [id number] Date of : 1980 Age: [age] year old 10/26/22 1300 Missed Visit Missed Visit Other (Comment) (awaiting helmet) * Yoon Cuadra, PharmD - 10/26/2022 12:54 PM CDT Vancomycin Per Pharmacy - Follow-Up Note Subjective Consuelo Darby is a 41 year old female receiving vancomycin dosed per pharmacy. Indication for anti-infective therapy: suspected infection Site of anti-infective therapy: [employer] [facility]. Goal trough 15-20 mcg/mL. Objective Day of [...] monitor patient's renal function. Please contact the [facility] pharmacy department ([phone]) with any questions. Yoon Cuadra PharmD 10/26/2022 12:47 PM Resources: Vancomycin Protocol * Jerry Leigh SLP - 10/26/2022 11:55 AM CDT [facility] Physical Medicine and Rehabilitation Bedside Swallow Assessment Patient: Consuelo Darby Med Record Number: [id number] Date of : 1980 Age: [age] year [...] Impression - Pharyngeal: Moderate Education/Interventions: While performing SENIOR LITIGATION PARALEGAL, Patient and spouse was instructed in: goals [...] precautions., Patient will follow recommended swallowing strategies. Special Collections Librarian Goal (s): Patient to be independent/baseline with functional mobility and self care and be able to safely discharge to prior level of care. Jerry Valle M.A., [facility]-SENIOR LITIGATION PARALEGAL Speech Language Pathologist [phone] * Pardeep Parks [...] Crawley OT - 10/26/2022 11:34 AM CDT [facility] Department of Physical Medicine & Rehabilitation Progress Note Patient: Consuelo Darby Med Record Number: [id number] Date of : 1980 Age: [age] year [...] Information Primary Emergency Contact: Hi Darby Address: [address] [place] [address] [place] [address] [facility] Relation: Spouse Secondary Emergency Contact: Sandra Disla [facility] Mobile Relation: Mother Transportation at Discharge: Ambulance: READMISSION RISK SCORE is 14 at 9:22 AM 10/26/2022.: Name: Bulmaro Ochoa RN BSN fleet dispatch manager [phone] * Vickie Muller MD - 10/26/2022 9:18 [...] results for input(s): MG in the last 39539 hours. Recent Labs Component Name 10/26/22 0002 10/25/22 0007 10/23/222028 PHOS 3.5 3.7 3.1 Recent Labs Component Name 10/26/22 0647 10/26/22 0426 10/26/22 0155 10/25/22 2102 10/25/22 1641 10/23/222028 PT - 13.6 - - 13.4 13.4 INR - 1.0 - - 1.0 1.0 PTT 44.3* - 20.5* 33.3 24.8 21.4* No results for input(s): A1C in the last 58781 hours. Recent Labs Component Name 10/20/22 0302 06/15/22 0757 CHOL 173 204* HDL 42 37* LDLCALC 91 117* TRIG 201* 251* Recent Labs Component Name 06/15/22 0757 TSH 1.873 No results for input(s): CKMB, CKTOTAL, CKMB, TROPONINI, BNP in the last [address] ANGIO BRAIN NECK STROKE Result Date: 10/19/2022 PROCEDURE: CT ANGIO BRAIN NECK STROKE, DATE/TIME OF EXAM: 10/19/2022 8:16 AM, LOCATION [facility] INDICATION: Code Stroke ADDITIONAL CLINICAL INFORMATION: [...] DATE/TIME OF EXAM: 10/19/2022 8:04 AM, LOCATION [facility] INDICATION: Code Stroke ADDITIONAL CLINICAL INFORMATION: [...] issues ??-NPO until passes swallow. TF - SENIOR LITIGATION PARALEGAL swallow evaluation Renal/Electrolytes ? No acute issues [...] Other (Comment) (has not been assessed by SENIOR LITIGATION PARALEGAL) Pain affectingintake: No Estimated Needs: KCAL: [id number] (25-30kcal/kg of IBW) Protein (g): 66-77 (1.2-1.4gm/kg [...] Delacruz MD - 10/26/2022 8:16 AM CDT [facility] Infectious Diseases Progress Note Date of [...] * 23 BUN 13 16 14 - 12 CREATININE 0.54* 0.48* 0.56 - 0.84 [...] fever serology -Chlamydia serologies, IgG and IgM, [facility]#[id number] -Mycoplasma serologies, IgG and IgM, [facility]#[id number] Follow blood cultures Follow rheumatologic and hypercoagulable work up Check CBC with auto diff and CMP weekly while on IV antibiotics Thank you for allowing us to participate in the care of this patient. We will continue to follow and monitor with you closely. Arturo Delacruz MD PhD Oxyacetylene Welder [facility] Infectious Disease Pager: [phone] 40 minutes spent in the care of this patient, including review of inpatient documentation, review of actual radiology images and interpretations, patient history/exam, and counseling. * Sosa Degroot MD - 10/26/2022 7:59 AM CDT Images from the original note were not included. Vascular Neurology Fellow Plan of Care Note Consuelo Darby is a 41 year old woman presenting to [facility] ED for acute left sensorimotor deficits, left [...] following - maintain normothermic and euglycemic - PT/OT/SENIOR LITIGATION PARALEGAL when stable - outpt follow-up for 3mm [...] Component Value Units Date/Time CARDIOLIPIN ANTIBODY IGA [[id number]] Collected: 10/23/222028 Order Status: Completed Specimen: Blood Updated: 10/26/22 1011 Cardiolipin Antibody IgA <10 APL Comment: INTERPRETIVE INFORMATION: Cardiolipin Antibodies, IgA <=11 APL: Negative 12-19 APL: Indeterminate 20-80 APL: Low to Moderately Positive 81 APL or above: High Positive Performed By: [facility] [address] [place] [address] Bilingual Receptionist: Boo Bond MD, PhD CLIA Number: [id number] VANCOMYCIN LEVEL TROUGH [[id number]] (Normal) Collected: 10/26/22837 Order Status: Completed Specimen: Blood Updated: 10/26/2259 Vancomycin Trough 14.0 ug/mL Narrative: See institution protocol. LAB MISC TEST [[id number]] Collected: 10/26/2237 Order Status: Sent Specimen: Blood Updated: 10/26/2239 PTT [facility] [[id number]] Order Status: Sent Specimen: Blood PTT [facility] [[id number]] (Abnormal) Collected: 10/26/22 0647 Order Status: Completed Specimen: Blood Updated: 10/26/22716 APTT 44.3 Seconds Comment: Suggested therapeutic range for full dose I.V. unfractionated heparin therapy for venous thromboembolism is 71 to 109 seconds. GLUCOSE - POINT OF CARE [[id number]] (Abnormal) Collected: 10/26/22 0712 Order Status: Completed Specimen: Blood Updated: 10/26/22712 Glucose WB/POC 144 mg/dL Specimen Type Cap Fingerstick LAB MISC TEST [[id number]] Order Status: Canceled Specimen: Blood PT-INR [facility] [[id number]] (Normal) Collected: 10/26/22 0426 Order Status: Completed Specimen: Blood Updated: 10/26/22458 PT 13.6 Seconds INR 1.0 Comment: The suggested therapeutic range for standard coumadin (warfarin) therapy is an INR of 2.0-3.0. For high-risk patients (Mechanical Mitral Valve Prosthesis, etc.), the suggested prophylactic therapeutic range is an INR of 2.5-3.5. BETA-2 GLYCOPROTEIN 1 ANTIBODY IGA [[id number]] Collected: 10/23/222028 Order Status: Completed Specimen: Blood Updated: 10/26/22 0243 Beta-2 Glycoprotein Antibody IgA <10 TRUDI Comment: Performed By: [facility] [address] [place] [address] Bilingual Receptionist: Boo Bond MD, PhD CLIA Number: [id number] BETA-2 GLYCOPROTEIN 1 ANTIBODY IGG/IGM PANEL [[id number]] Collected: 10/23/222028 Order Status: Completed Specimen: Blood Updated: 10/26/22 0243 Beta-2 Glycoprotein Antibody IgG <10 SGU Beta-2 Glycoprotein Antibody IgM <10 SMU Comment: INTERPRETIVE INFORMATION: [id number] I, IgG and IgM Antibody The persistent [...] other criteria phospholipid antibody tests. Performed By: [facility] [address] [place] [address] Bilingual Receptionist: Boo Bond MD, PhD CLIA Number: [id number] CARDIOLIPIN ANTIBODY IGM [[id number]] Collected: 10/23/222028 Order Status: Completed Specimen: Blood [...] other criteria phospholipid antibody tests. Performed By: [facility] [address] [place], [place] [id number] Bilingual Receptionist: Boo Bond MD, PhD CLIA Number: [id number] CARDIOLIPIN ANTIBODY IGG [[id number]] Collected: 10/23/222028 Order Status: Completed Specimen: Blood [...] other criteria phospholipid antibody tests. Performed By: [facility] [address] [place], [place] [id number] Bilingual Receptionist: Boo Bond MD, PhD CLIA Number: [id number] PTT [facility] [[id number]] (Abnormal) Collected: 10/26/225 Order Status: Completed Specimen: Blood Updated: 10/26/22225 APTT 20.5 Seconds Comment: Suggested therapeutic range for full dose I.V. unfractionated heparin therapy for venous thromboembolism is 71 to 109 seconds. PHOSPHORUS BLOOD [[id number]] (Normal) Collected: 10/26/221 Order Status: Completed Specimen: Blood Updated: 10/26/2229 Phosphorus 3.5 mg/dL MAGNESIUM BLOOD [[id number]] (Normal) Collected: 10/26/221 Order Status: Completed Specimen: Blood Updated: 10/26/2229 Magnesium 1.9 mg/dL BASIC METABOLIC PANEL (CALCIUM TOTAL) [[id number]] (Abnormal) Collected: 10/26/221 Order Status: Completed Specimen: Blood Updated: 10/26/2229 BUN 13 mg/dL Creatinine 0.54 mg/dL Sodium 139 mmol/L Potassium 3.3 mmol/L Chloride 105 mmol/L CO2 24 mmol/L Glucose 113 mg/dL Calcium 8.4 mg/dL Anion Gap 13 BUN/Creatinine Ratio 24 Osmolality Calculated 289 mOsm/kg eGFR by CKD-EPI >90 mL/min/1.73 m2 CBC W AUTO DIFFERENTIAL [[id number]] (Abnormal) Collected: 10/26/221 Order Status: Completed Specimen: [...] Absolute 0.30 GLUCOSE - POINT OF CARE [[id number]] Collected: 10/25/222313 Order Status: Completed Specimen: Blood Updated: 10/25/222314 Glucose WB/POC 114 mg/dL Specimen Type Cap Fingerstick PTT [facility] [[id number]] Order Status: Canceled Specimen: Blood PTT [facility] [[id number]] (Normal) Collected: 10/25/222101 Order Status: Completed Specimen: Blood Updated: 10/25/222131 APTT 33.3 Seconds Comment: Suggested therapeutic range for full dose I.V. unfractionated heparin therapy for venous thromboembolism is 71 to 109 seconds. GLUCOSE - POINT OF CARE [[id number]] (Abnormal) Collected: 10/25/221853 Order Status: Completed Specimen: Blood Updated: 10/25/221855 Glucose WB/POC 122 mg/dL Specimen Type Cap Fingerstick PT-INR [facility] [[id number]] (Normal) Collected: 10/25/221640 Order Status: Completed Specimen: Blood Updated: 10/25/221718 PT 13.4 Seconds INR 1.0 Comment: The suggested therapeutic range for standard coumadin (warfarin) therapy is an INR of 2.0-3.0. For high-risk patients (Mechanical Mitral Valve Prosthesis, etc.), the suggested prophylactic therapeutic range is an INR of 2.5-3.5. PTT [facility] [[id number]] (Normal) Collected: 10/25/22 164 Order Status: Completed Specimen: Blood Updated: 10/25/221718 [...] > Dictated by Clarisa Cantrell MD (residential program director). [employer] have personally reviewed and interpreted this [...] is dictated by Miranda Bowen MD (residential program director) Joni Ornelas MD have personally reviewed and [...] right lateral ventricle, and approximately 3-4 mm msczt-ts-jhft midline shift, grossly similar to the prior. [...] Report dictated by Tim Major MD (residential program director). Jasper Ornelas MD have personally reviewed and [...] report is dictated by Miranda Bowen MD(residential program director) Jasper Ornelas MD have personally reviewed and [...] hemorrhage. Report dictated by Lorenzo Horta MD (resident associate). Lonnie Ornelas MD have personally reviewed and [...] prior. > Dictated by Bassam Jovel M.D. (resident associate) Ceci, Gonzalez Velasco MD have personally reviewed and [...] febrile Gastrointestinal # Hx of GERD? - SENIOR LITIGATION PARALEGAL swallow evaluation:??when stable - Diet:??NG tube - [...] at bedside Consuelo Brown Medical Student, MS3 [facility]. * Paris Mohr MD - 10/26/2022 [...] TICI 2B recanalization S/P TNK administration. S/P [facility] Malignant MCA syndrome - S/P hemicrani on [...] after hemicrani on 10/20. Extubated 10/24, to CO - Bronchial hygiene q4h, vest and if [...] - Diet: Goal TF Vital 55cc/hr, FWF 030aft1r - GI ppx: Lansoprozole - Last BM: [...] bedside Paris Mohr MD Neurology Resident. PGY-3 [facility]. Associated attestation - Shahbaz Bowen MD [...] 10/25: Incidentally clot found in the R HIDE WASHER, non-occulsive, with good pulses peripherally. 10/26: no [...] Contact Information Primary Emergency Contact: MehnazHi Address: [address] [place] [address] [place] [address] [facility] Relation: Spouse Secondary Emergency Contact: Sandra Disla [facility] Mobile Relation: Mother Transportation at Discharge: Ambulance: READMISSION RISK SCORE is 15 at 6:02 PM 10/25/2022.: Name: Bulmaro Ochoa RN BSN fleet dispatch manager [phone] * Barbara Arteaga - 10/25/2022 12:38 PM CDT offered support to Salo at bedside and asked him and Consuelo, who was awake, aboutreceiving the sacrament of the sick from a subassemblies wirer. Salo said yes and Consuelo seemed to give assent as well. Teleprinter asked if she would like prayer and Consuelo gave a thumbs up; systems engineering manager provided prayer in thanksgiving that she's extubated and giving thumbs up. Consuelo put her arm around Salo who w as leaning over her; systems engineering manager affirmed the couple's obvious love for each other. requestedSOS from our subassemblies wirer. chaplain Cici Ascom [phone] at home independent [...] - Diet: Goal TF Vital 55cc/hr, FWF 178vgo6b - GI ppx: Lansoprozole - Last BM: [...] bedside Paris Mohr MD Neurology Resident. PGY-3 [facility]. Associated attestation - Shahbaz Bowen MD [...] 10/25: Incidentally clot found in the R HIDE WASHER, non-occulsive, with good pulses peripherally. RENAL/ Urinary [...] Rose OT - 10/25/2022 9:50 AM CDT [facility] Department of Physical Medicine & Rehabilitation Progress Note Patient: Consuelo Darby Med Record Number: [id number] Date of : 1980 Age: [age] year old 10/25/22 0949 Missed Visit Missed Visit MD Cancel Per multidisciplinary rounds with primary team, cx therapy this date. Team also notified on rounds of need for helmet prior to initiating out of bed mobility. OT will continue to follow. * Iva Wilde, PT - 10/25/2022 9:30 AM CDT [facility] Department of Physical Medicine & Rehabilitation Patient: Consuelo Darby Med Record Number: [id number] Date of : 1980 Age: [age] year old 10/25/22 0930 Missed Visit Missed Visit Cancel- Cancel for the day per stroke rounds * Liam Parks MD - 10/25/2022 8:00 AM CDT [facility] Infectious Diseases Progress Note Date of Admission: 10/19/2022 7:53 AM Length of Stay: Day 6 Room: [facility]/ Attending: Emir Vail MD Subjective Since last [...] 10/25 - present ?? Prior Antibiotics At [facility] Cefazolin 10/20 Vancomycin 10/20 Inpatient Medications ??? [...] CBC: Recent Labs Component Name 10/25/22 0007 10/23/229 10/23/22 0129 10/22/22 0153 WBC 16.6* 17.4* 16.7* - RBC 2.65* 2.58* 2.52* - HGB 8.2* 8.0* 7.8* - HCT 25.1* 24.4* 23.8* - MCV 94.7 94.6 94.4 - PLT - - - 199 BMP: Recent Labs Component Name 10/25/22 0007 10/23/22202810/23/22 0129 10/20/22 0302 10/19/2282306/15/22 075 NA 140 140 140 - 139 138 CL 106 110* 108* - 108* 107 CO2 25 23 25 - 21* 23 BUN 16 14 13 - 13 12 CREATININE 0.48* 0.56 0.51* - 0.84 0.74 ALB - - - - 3.5 3.6 PROT - - - - 7.7 7.5 - = values in this interval not displayed. estimated creatinine clearance is 176.1 mL/min (A) (by C-G formula based on SCr of 0.48 mg/dL (L)). LFTs: Recent Labs Component Name 10/19/2282306/15/227 12/09/18 0812 07/25/18 2056 03/01/16 0817 02/18/16 [...] Liam Parks MD (PGY-5) Infectious Diseases Fellow [facility] Pager: [phone] [facility] Associated attestation - Arturo Delacruz MD [...] of care. . Arturo Delacruz MD PhD Oxyacetylene Welder [facility] Infectious Disease * Consuelo Prado - 10/25/2022 [...] Units Date/Time GLUCOSE - POINT OF CARE [[id number]] (Abnormal) Collected: 10/25/22745 Order Status: Completed Specimen: Blood Updated: 10/25/22746 Glucose WB/POC 123 mg/dL Specimen Type Cap Fingerstick HEPATITIS C AB SCREEN RFLX NAAT QUANT [[id number]] (Normal) Collected: 10/25/22138 Order Status: Completed Specimen: [...] HIV-2 ANTIBODY + HIV P24 AG PANEL [[id number]] (Normal) Collected: 10/25/22138 Order Status: Completed Specimen: Blood Updated: 10/25/22255 HIV Antigen/Antibody 1 & 2 Non-reactive Comment: No Laboratory evidence of HIV infection. MAGNESIUM BLOOD [[id number]] (Normal) Collected: 10/25/226 Order Status: Completed Specimen: Blood Updated: 10/25/2247 Magnesium 2.1 mg/dL PHOSPHORUS BLOOD [[id number]] (Normal) Collected: 10/25/226 Order Status: Completed Specimen: Blood Updated: 10/25/2247 Phosphorus 3.7 mg/dL BASIC METABOLIC PANEL (CALCIUM TOTAL) [[id number]] (Abnormal) Collected: 08/16/23 0007 Order Status: Completed Specimen: Blood Updated: 10/25/22 0048 BUN 16 mg/dL Creatinine 0.48 mg/dL Sodium 140 mmol/L Potassium 4.0 mmol/L Chloride 106 mmol/L CO2 25 mmol/L Glucose 116 mg/dL Calcium 9.0 mg/dL Anion Gap 13 BUN/Creatinine Ratio 33 Osmolality Calculated 292 mOsm/kg eGFR by CKD-EPI >90 mL/min/1.73 m2 CBC W AUTO DIFFERENTIAL [[id number]] (Abnormal) Collected: 10/25/22 0007 Order Status: Completed Specimen: Blood Updated: 10/25/22 [...] Absolute 0.18 GLUCOSE - POINT OF CARE [[id number]] Collected: 10/24/222015 Order Status: Completed Specimen: Blood Updated: 10/24/222024 Glucose WB/POC 111 mg/dL Specimen Type Cap Fingerstick GLUCOSE - POINT OF CARE [[id number]] (Abnormal) Collected: 10/24/22 1237 Order Status: Completed Specimen: Blood Updated: 10/24/22 173 Glucose WB/POC 130 mg/dL Specimen Type Cap Fingerstick GLUCOSE - POINT OF CARE [[id number]] Collected: 10/24/22 171 Order Status: Completed Specimen: Blood Updated: 10/24/22 171 Glucose WB/POC 112 mg/dL Specimen Type Cap Fingerstick LUPUS ANTICOAGULANT PANEL [[id number]] (Abnormal) Collected: 10/23/222028 Order Status: Completed Specimen: [...] of APAS. GLUCOSE - POINT OF CARE [[id number]] (Abnormal) Collected: 10/24/22914 Order Status: Completed Specimen: Blood Updated: 10/24/22915 Glucose WB/POC 130 mg/dL Specimen Type Cap [...] right lateral ventricle, and approximately 3-4 mm bzkuj-yw-wkoz midline shift, grossly similar to the prior. [...] Report dictated by Tim Major MD (residential program director). Jasper Ornelas MD have personally reviewed and [...] report is dictated by Miranda Bowen MD(residential program director) Jasper Ornelas MD have personally reviewed and [...] hemorrhage. Report dictated by Lorenzo Horta MD (resident associate). Lonnie Ornelas MD have personally reviewed and [...] mm, unchanged from prior. > Dictated by Bassamamy Jovel M.D. (resident associate) IGonzalez MD have personally reviewed and interpreted [...] approximately 1225 hours. > Interpreting Provider: Joni Fabain MD on 10/20/2022 12:[address] ANGIO [...] Suggestion of subtle hypoattenuation with loss of csott-white matter differentiation in the right frontotemporal lobes [...] Gastrointestinal # Hx of GERD ?? - SENIOR LITIGATION PARALEGAL swallow evaluation: when stable - Diet: NG [...] at bedside Consuelo Brown Medical Student, MS3 [facility]. Associated attestation - Shahbaz Bowen MD [...] 105 23 128/75 Recent Labs Component Name 08/16610/23/22202810/23/22 0129 NA 140 140 140 CL 106 110* 108* CO2 25 23 25 BUN 16 14 13 CREATININE 0.48* 0.56 0.51* CALCIUM 9.0 8.5 8.3* PHOS 3.7 3.1 3.4 Recent Labs Component Name 10/25/22 0007 10/23/22202810/23/2212810/22/22 [...] 6.0* EAG 126 Recent Labs Component Name 10/25/22610/23/22202810/23/22 0129 PLTCOUNT 402* 310 265 * Tim [...] ?? Interval History: NAEON. Extubated yesterday to [place]. Dentist evaluated, no concern for dental issues. [...] results for input(s): MG in the last 91933 hours. Recent Labs Component Name 10/25/22610/23/22202810/23/22128 PHOS 3.7 3.1 3.4 Recent Labs Component Name 10/23/22202810/20/22 0302 10/19/22 0824 PT 13.4 13.6 12.3 INR 1.0 1.1 0.9 PTT 21.4* 24.4 - No results for input(s): A1C in the last 86732 hours. Recent Labs Component Name 10/20/2230106/15/22 0757 CHOL 173 204* HDL 42 37* LDLCALC 91 117* TRIG 201* 251* Recent Labs Component Name 06/15/22 0757 TSH 1.873 No results for input(s): CKMB, CKTOTAL, CKMB, TROPONINI, BNP in the last [address] ANGIO BRAIN NECK STROKE Result Date: 10/19/2022 PROCEDURE: CT ANGIO BRAIN NECK STROKE, DATE/TIME OF EXAM: 10/19/2022 8:16 AM, LOCATION [facility] INDICATION: Code Stroke ADDITIONAL CLINICAL INFORMATION: [...] DATE/TIME OF EXAM: 10/19/2022 8:04 AM, LOCATION [facility] INDICATION: Code Stroke ADDITIONAL CLINICAL INFORMATION: [...] issues ??-NPO until passes swallow. TF - SENIOR LITIGATION PARALEGAL swallow evaluation Renal/Electrolytes ? No acute issues [...] Sajan Del Rosario, PharmD 10/25/2022 6:26 AM [facility] Vancomycin Guideline SUBJECTIVE/OBJECTIVE Consuelo Darby is a [...] Given - Contrast 10/23/2022 Vancomycin Administrations from [facility] (last 72 hours) Date/Time Action Medication Dose Rate 10/25/22 0200 $ New Bag/Syringe vancomycin (Vancocin) 2,250 mg in 545 mL IVPB 2,250 mg 242.22 mL/hr No results for input(s): VANCORNDM, VANCTROUGH, VANCOTROUGH, VANCOPEAK in the last 36314 hours. * Jorge Dodd - 10/25/2022 12:30 [...] to ask pt. Will send message to [facility] Barbara estes, for followup and contacting once clear wishes of pt are known. Shared with Salo that Mass is held on Wednesdays at noon. 309/01 Jorge Dodd 10/25/2022 12:35 AM * Vickie [...] On arrival patient noted to janete Amy Johnson hemainopsia, mild dysarthria, and extinction. [...] results for input(s): MG in the last 58967 hours. Recent Labs Component Name 10/23/22202810/23/22 01210/21/22 231 PHOS 3.1 3.4 2.7* Recent Labs Component Name 10/23/22202810/20/22 0302 10/19/22 0824 PT 13.4 13.6 12.3 INR 1.0 1.1 0.9 PTT 21.4* 24.4 - No results for input(s): A1C in the last 88836 hours. Recent Labs Component Name 10/20/22 0302 06/15/22 0757 CHOL 173 204* HDL 42 37* LDLCALC 91 117* TRIG 201* 251* Recent Labs Component Name 06/15/22 0757 TSH 1.873 No results for input(s): CKMB, CKTOTAL, CKMB, TROPONINI, BNP in the last [address] ANGIO BRAIN NECK STROKE Result Date: 10/19/2022 PROCEDURE: CT ANGIO BRAIN NECK STROKE, DATE/TIME OF EXAM: 10/19/2022 8:16 AM, LOCATION [facility] INDICATION: Code Stroke ADDITIONAL CLINICAL INFORMATION: [...] DATE/TIME OF EXAM: 10/19/2022 8:04 AM, LOCATION [facility] INDICATION: Code Stroke ADDITIONAL CLINICAL INFORMATION: [...] Gastrointestinal ? No acute issues ?? - SENIOR LITIGATION PARALEGAL swallow evaluation Renal/Electrolytes ? No acute issues [...] following - maintain normothermic and euglycemic - PT/OT/SENIOR LITIGATION PARALEGAL when stable Temp: [98.5 ??F (36.9 ??C)-100.2 ??F (37.9 ??C)] 98.9 ??F (37.2 ??C) Pulse: [85-140] 113 Resp: [16-34] 22 BP: (97-147)/(55-98) 147/94 O2 %: [30 %] 30 % Recent Labs Component Name 10/23/222028 WBC 17.4* Recent Labs Component Name 10/23/22202810/23/22 0129 10/21/22 2316 06/15/22 0757 12/09/18 0812 07/25/18205503/01/16 0817 SODIUM [...] - Diet: Goal TF Vital 55cc/hr, FWF 592bqd3q - GI ppx: Lansoprozole - Last BM: [...] bedside Paris Mohr MD Neurology Resident. PGY-3 [facility]. Associated attestation - Shahbaz Bowen MD [...] takes deep breath when asked. Extubated to [place] [facility] Aortic vegetation 10/23: Vegetation discovered differential [...] 130/63 10/23/22 0845 -- 104 21 136/69 08/14/23 0830 -- 102 20 133/73 10/23/22 0829 [...] 3.1 3.4 2.7* Recent Labs Component Name 10/23/22202810/23/229 10/22/22 0153 10/21/22 2316 WBC 17.4* 16.7* [...] Date/Time BETA-2 GLYCOPROTEIN 1 ANTIBODY IGG/IGM PANEL [[id number]] Collected: 10/23/222028 Order Status: Sent Specimen: Blood Updated: 10/23/222118 CARDIOLIPIN ANTIBODY IGA [[id number]] Collected: 10/23/222028 Order Status: Sent Specimen: Blood Updated: 10/23/222118 CARDIOLIPIN ANTIBODY IGG [[id number]] Collected: 10/23/222028 Order Status: Sent Specimen: Blood Updated: 10/23/222118 BETA-2 GLYCOPROTEIN 1 ANTIBODY IGA [[id number]] Collected: 10/23/222028 Order Status: Sent Specimen: Blood Updated: 10/23/222118 CARDIOLIPIN ANTIBODY IGM [[id number]] Collected: 10/23/222028 Order Status: Sent Specimen: Blood Updated: 10/23/222118 PHOSPHORUS BLOOD [[id number]] (Normal) Collected: 10/23/222028 Order Status: Completed Specimen: Blood Updated: 10/23/222113 Phosphorus 3.1 mg/dL MAGNESIUM BLOOD [[id number]] (Normal) Collected: 10/23/222028 Order Status: Completed Specimen: Blood Updated: 10/23/222113 Magnesium 2.1 mg/dL BASIC METABOLIC PANEL (CALCIUM TOTAL) [[id number]] (Abnormal) Collected: 10/23/222028 Order Status: Completed Specimen: Blood Updated: 10/23/222113 BUN 14 mg/dL Creatinine 0.56 mg/dL Sodium 140 mmol/L Potassium 4.1 mmol/L Chloride 110 mmol/L CO2 23 mmol/L Glucose 119 mg/dL Calcium 8.5 mg/dL Anion Gap 11 BUN/Creatinine Ratio 25 Osmolality Calculated 292 mOsm/kg eGFR by CKD-EPI >90 mL/min/1.73 m2 CBC W AUTO DIFFERENTIAL [[id number]] (Abnormal) Collected: 10/23/222028 Order Status: Completed Specimen: [...] Immature Granulocytes Absolute 0.15 LAB MISC TEST [[id number]] Collected: 10/23/222028 Order Status: Sent Specimen: Blood Updated: 10/23/222053 LUPUS ANTICOAGULANT PANEL [[id number]] Collected: 10/23/222028 Order Status: Sent Specimen: Blood Updated: 10/23/222042 GLUCOSE - POINT OF CARE [[id number]] Collected: 10/23/221756 Order Status: Completed Specimen: Blood Updated: 10/23/221757 Glucose WB/POC 105 mg/dL Specimen Type Cap Fingerstick ERYTHROCYTE SEDIMENTATION RATE [[id number]] (Abnormal) Collected: 10/23/22 154 Order Status: Completed Specimen: Blood Updated: 10/23/22 1625 Erythrocyte Sedimentation Rate Westergren 55 MM/HR C-REACTIVE PROTEIN [[id number]] (Abnormal) Collected: 10/23/22 1547 Order Status: Completed Specimen: Blood Updated: 10/23/22 1619 C-Reactive Protein 12.1 mg/dL GLUCOSE - POINT OF CARE [[id number]] Collected: 10/23/22 1124 Order Status: Completed Specimen: [...] report is dictated by Miranda Bowen MD(residential program director) I, Jasper Sifuentes MD have personally reviewed [...] hemorrhage. Report dictated by Lorenzo Horta MD (resident associate). ILonnie MD have personally reviewed and interpreted [...] prior. > Dictated by Bassam Jovel M.D. (resident associate) Gonzalez Ornelas MD have personally reviewed and [...] febrile Gastrointestinal # Hx of GERD - SENIOR LITIGATION PARALEGAL swallow evaluation: when stable - Diet: NG [...] bedside Cordero Kyle Prado Medical Student, MS3 [facility]. Associated attestation - Shahbaz Bowen MD [...] see Ms. Consuelo Darby in consultation at [facility] on 10/23/2022 for evaluation of vegetation [...] appearance: able to follow simple commands HEENT: Carla noted in the scalp Neck: The thyroid [...] Intake/Output Summary (Last 24 hours) at 10/24/2022 0462 Last data filed at 10/24/2022 0600 Gross [...] Recent Labs Component Name 10/20/22 0302 10/19/22 0810/19/22 0809 PT 13.6 12.3 - INR 1.1 0.9 0.9 PTT 24.4 - - BMP: Recent Labs Component Name 10/23/22202810/23/2212810/21/222315 NA 140 140 142 CL 110* 108* 111* CO2 23 25 20* BUN 14 13 16 CREATININE 0.56 0.51* 0.65 CALCIUM 8.5 8.3* 8.0* No results for input(s): MG in the last 24746 hours. Recent Labs Component Name 10/23/22202810/23/2212810/21/22 231 [...] input(s): CKTOTAL, CKMB, TROPONINI in the last 26462 hours. Invalid input(s): CKMBINDEX Lipid Panel: Recent [...] right lateral ventricle, and approximately 3-4 mm wionu-jy-ruio midline shift, grossly similar to the prior. [...] -- -- (!) 111 9 97 % 08/13/23 1815 134/70 -- -- 103 21 98 [...] results for input(s): MG in the last 86806 hours. Recent Labs Component Name 10/23/22 0129 10/21/22 2316 10/21/22 0459 PHOS 3.4 2.7* 2.2* Recent Labs Component Name 10/20/22 0302 10/19/22 0824 10/19/22 0809 PT 13.6 12.3 - INR 1.1 0.9 0.9 PTT 24.4 - - No results for input(s): A1C in the last 73864 hours. Recent Labs Component Name 10/20/22 0302 06/15/22 0757 CHOL 173 204* HDL 42 37* LDLCALC 91 117* TRIG 201* 251* Recent Labs Component Name 06/15/22 0757 TSH 1.873 No results for input(s): CKMB, CKTOTAL, CKMB, TROPONINI, BNP in the last [address] ANGIO BRAIN NECK STROKE Result Date: 10/19/2022 PROCEDURE: CT ANGIO BRAIN NECK STROKE, DATE/TIME OF EXAM: 10/19/2022 8:16 AM, LOCATION [facility] INDICATION: Code Stroke ADDITIONAL CLINICAL INFORMATION: [...] DATE/TIME OF EXAM: 10/19/2022 8:04 AM, LOCATION [facility] INDICATION: Code Stroke ADDITIONAL CLINICAL INFORMATION: [...] pending PT/OT Evaluation: pending Smoking cessation; will grief counsellor: N/A Migraine - verapamil 40 TID GENESIS [...] Gastrointestinal ? No acute issues ?? - SENIOR LITIGATION [place]GAL swallow evaluation Renal/Electrolytes ? No acute issues [...] start heparin drip pending NSGY clearance given [facility]. Blood cultures ordered UDS negative on admission Rheumatology consulted given family history of [facility] ICU for at least 48 hours. Orientation Level: Unable to Obtain: Family Support (Name and Phone): Extended Emergency Contact Information Primary Emergency Contact: Hi Darby Address: [address] [place] [phone] [facility] Relation: Spouse Secondary Emergency Contact: Sandra Disla [facility] Mobile Relation: Mother Transportation at Discharge: Ambulance: READMISSION RISK SCORE is 16 at 2:17 PM 10/23/2022.: Name:Bulmaro Ochoa RN BSN fleet dispatch manager [phone] * Laura Patel APRN-VOCAL PERFORMER - 10/23/2022 2:10 PM CDT Neurosurgery Plan [...] acute decline in neuro exam. Laura Patel, AMANDA-VOCAL PERFORMER * Sosa Degroot MD - 10/23/2022 2:01 [...] following - maintain normothermic and euglycemic - PT/OT/SENIOR LITIGATION [place]ALEGAL when stable Temp: [98.2 ??F (36.8 ??C)-99.5 [...] post acute care needs Patient is an [employer] employee; [employer] for all post acute care needs Payer/Plan Subscriber Name Rel Member # Group # [id number] JORGE RICKDANIELCONSUELO Dayami Dennison [id number] [id number] Anticipated level of care at discharge: Home, Acute Rehab Facility: Anticipated level of care provider: None: Anticipated Discharge Date: 10/26/22: Orientation Level: Unable to Obtain: Family Support (Name and Phone): Extended Emergency Contact Information Primary Emergency Contact: Hi Darby Address: [address] [place] [address] [place] [address] [facility] Relation: Spouse Secondary Emergency Contact: Sandra Disla [facility] Mobile Relation: Mother Transportation at Discharge: [...] 6.0* EAG 126 Recent Labs Component Name 10/23/229 10/21/22 0753 10/21/22 0459 PLTCOUNT 265 259 [...] per 24 hour Intake 1685.78 ml Output 1994 ml Net -309.22 ml #Decreased UOP --Most [...] discussed with Dr. Andrés MD. Bob Weaver [facility] * Paris Mohr MD - [...] start heparin drip pending NSGY clearance given [facility]. - Blood cultures ordered - UDS negative [...] - Diet: Goal TF Vital 55cc/hr, FWF 149ndf8m - GI ppx: Lansoprozole - Last BM: [...] bedside Paris Mohr MD Neurology Resident. PGY-3 [facility]. * Jing Powers, [facility] - 10/22/2022 2:20 PM CDT Transport Start Time: 14:10 Transport Assisted by 1 # of Therapists Transport From: 3N Transport To: ID 3rd [place] Total Transport Time: 25 min [...] at bedside Eli Alcaraz MD Neurology Resident. [facility]. Associated attestation - Dary Garvey MD [...] Yared Chavira - 10/22/2022 11:02 AM CDT Teleprinter provided pastoral care and support to family at patient's bedside - patient's and older sister. With permission, Teleprinter provided compassionate touch and prayed for patient [...] Labs Component Name 10/22/22 0153 10/21/22231510/21/22 0753 10/21/22458 WBC - 18.4* 18.6* 18.7* RBC - 2.62* 3.01* 2.98* HGB - 8.1* 9.4* 9.4* HCT - 25.1* 27.9* 27.8* PLT 199 - - - Recent Labs Component Name 10/20/22 0302 06/15/22 075 CHOL 173 204* TRIG 201* 251* HDL [...] results for input(s): MG in the last 39049 hours. Recent Labs Component Name 10/21/22 2316 10/21/22 0459 PHOS 2.7* 2.2* Recent Labs Component Name 10/20/22 0302 10/19/22 0824 10/19/22 0809 PT 13.6 12.3 - INR 1.1 0.9 0.9 PTT 24.4 - - No results for input(s): A1C in the last 45437 hours. Recent Labs Component Name 10/20/22 0302 06/15/22 0757 CHOL 173 204* HDL 42 37* LDLCALC 91 117* TRIG 201* 251* Recent Labs Component Name 06/15/22 075 TSH 1.873 No results for input(s): CKMB, CKTOTAL, CKMB, TROPONINI, BNP in the last [address] ANGIO BRAIN NECK STROKE Result Date: 10/19/2022 PROCEDURE: CT ANGIO BRAIN NECK STROKE, DATE/TIME OF EXAM: 10/19/2022 8:16 AM, LOCATION [facility] INDICATION: Code Stroke ADDITIONAL CLINICAL INFORMATION: [...] DATE/TIME OF EXAM: 10/19/2022 8:04 AM, LOCATION [facility] INDICATION: Code Stroke ADDITIONAL CLINICAL INFORMATION: [...] pending PT/OT Evaluation: pending Smoking cessation; will grief counsellor: N/A ?? Neurological ?? R M1 ischemic [...] pending PT/OT Evaluation: pending Smoking cessation; will grief counsellor: N/A Migraine - verapamil 40 TID Cardiovascular [...] Gastrointestinal ? No acute issues ?? - SENIOR LITIGATION PARALEGAL swallow evaluation Renal/Electrolytes ? No acute issues [...] cont straight cath. Prefer NO puentes insertion PT/OT/SENIOR LITIGATION PARALEGAL Dary Garvey MD Neurologic Critical Care Attending 10/21/2022 * Shania Arce SLP - 10/21/2022 12:27 PM CDT [facility] Department of Physical Medicine & Rehabilitation Progress Note Patient: Consuelo Darby Med Record Number: [id number] Date of : 1980 Age: [age] year old 10/21/22 1200 Therapy on Hold Therapy on Hold Surgery;New Order Required for Therapy Barb Lopes MS [facility]-SENIOR LITIGATION [place] Speech Language Pathologist * Stephanie Hester MD [...] (!) 115 -- 100 % -- -- 10/20/221809 109/64 99 ??F (37.2 ??C) -- 102 [...] 36.6 35.4 Recent Labs Component Name 10/21/2245810/20/22 0302 10/19/22 0824 NA 142 138 139 CL 115* 108* 108* CO2 16* 21* 21* BUN 12 6* 13 CREATININE 0.64 0.50* 0.84 CALCIUM 8.2* 8.2* 8.9 No results for input(s): MG in the last 41607 hours. Recent Labs Component Name 10/21/22458 PHOS 2.2* Recent Labs Component Name 10/20/22 0302 10/19/22 0824 10/19/22 0809 PT 13.6 12.3 - INR 1.1 0.9 0.9 PTT 24.4 - - No results for input(s): A1C in the last 35171 hours. Recent Labs Component Name 10/20/22 03006/15/22 075 CHOL 173 204* HDL 42 37* LDLCALC 91 117* TRIG 201* 251* Recent Labs Component Name 06/15/22 075 TSH 1.873 No results for input(s): CKMB, CKTOTAL, CKMB, TROPONINI, BNP in the last [address] ANGIO BRAIN NECK STROKE Result Date: 10/19/2022 PROCEDURE: CT ANGIO BRAIN NECK STROKE, DATE/TIME OF EXAM: 10/19/2022 8:16 AM, LOCATION [facility] INDICATION: Code Stroke ADDITIONAL CLINICAL INFORMATION: [...] DATE/TIME OF EXAM: 10/19/2022 8:04 AM, LOCATION [facility] INDICATION: Code Stroke ADDITIONAL CLINICAL INFORMATION: [...] pending PT/OT Evaluation: pending Smoking cessation; will grief counsellor: N/A ?? Neurological ?? R M1 ischemic [...] pending PT/OT Evaluation: pending Smoking cessation; will grief counsellor: N/A Migraine - verapamil 40 TID Cardiovascular [...] Gastrointestinal ? No acute issues ?? - SENIOR LITIGATION PARALEGAL swallow evaluation Renal/Electrolytes ? No acute issues [...] Rodriguez MD 5:51 PM 10/21/22 * Deyanira Russell PT - 10/21/2022 8:23 AM CDT [facility] Department of Physical Medicine & Rehabilitation Progress Note Patient: Consuelo Darby Med Record Number: [id number] Date of : 1980 Age: [age] year [...] euglycemic - pending SARAH w/ ILR - PT/OT/SENIOR LITIGATION PARALEGAL when stable Temp: [99 ??F (37.2 ??C)-100.4 [...] Rose OT - 10/21/2022 7:37 AM CDT [facility] Department of Physical Medicine & Rehabilitation Progress Note Patient: Consuelo Darby Med Record Number: [id number] Date of : 1980 Age: [age] year [...] Value Units Date/Time CBC W AUTO DIFFERENTIAL [[id number]] Order Status: Sent Specimen: Blood BLOOD GASES ART + COOX PANEL [[id number]] Order Status: Sent Specimen: Blood, arterial from Arterial Blood COMPLEMENT C3 [[id number]] (Normal) Collected: 10/21/22 045 Order Status: Completed Specimen: Blood Updated: 10/21/22546 Complement C3 155 mg/dL MAGNESIUM BLOOD [[id number]] (Normal) Collected: 10/21/22458 Order Status: Completed Specimen: Blood Updated: 10/21/22546 Magnesium 2.2 mg/dL Comment: Hemolysis detected in this specimen. Hemolysis is known to cause elevations in this analyte. Caution should be exercised in the interpretation of this result. Recommend repeat testing if clinically indicated. BASIC METABOLIC PANEL (CALCIUM TOTAL) [[id number]] (Abnormal) Collected: 10/21/22458 Order Status: Completed Specimen: [...] by CKD-EPI >90 mL/min/1.73 m2 PHOSPHORUS BLOOD [[id number]] (Abnormal) Collected: 10/21/22458 Order Status: Completed Specimen: Blood Updated: 10/21/22545 Phosphorus 2.2 mg/dL TROPONIN-I HIGH SENSITIVE BASELINE + 1HR [[id number]] (Normal) Collected: 10/21/22458 Order Status: Completed Specimen: Blood Updated: 10/21/22545 Troponin I High Sensitive <3 ng/L RHEUMATOID FACTOR BLOOD QUANTITATIVE [[id number]] (Normal) Collected: 10/21/22458 Order Status: Completed Specimen: Blood Updated: 10/21/22535 Rheumatoid Factor <15 IU/mL Rheumatoid Factor Screen Negative CBC W/O DIFFERENTIAL [[id number]] (Abnormal) Collected: 10/21/22458 Order Status: Completed Specimen: Blood Updated: 10/21/22524 WBC 18.7 10??3/uL RBC 2.98 10??6/uL Hemoglobin 9.4 g/dL Hematocrit 27.8 % MCV 93.3 fL MCH 31.5 pg MCHC 33.8 g/dL RDW-SD 48.8 fL RDW-CV 14.3 % Platelet Count 260 10??3/uL MPV 10.6 fL nRBC Absolute 0.00 10??3/uL nRBC Auto 0.0 /100 WBC FACTOR V LEIDEN MUTATION PANEL [[id number]] Collected: 10/21/22458 Order Status: Sent Specimen: Blood Updated: 10/21/22 0510 TROPONIN-I HIGH SENSITIVE REFLEX 1HOUR [[id number]] Order Status: Sent Specimen: Blood SARAH BLOOD SCREEN W/REFLEX TITER [[id number]] Collected: 10/21/22458 Order Status: Sent Specimen: Blood Updated: 10/21/22 0506 GLUCOSE - POINT OF CARE [[id number]] (Abnormal) Collected: 10/21/22457 Order Status: Completed Specimen: Blood Updated: 10/21/22 0502 Glucose WB/POC 166 mg/dL Specimen Type Cap Fingerstick GLUCOSE - POINT OF CARE [[id number]] (Abnormal) Collected: 10/21/22120 Order Status: Completed Specimen: Blood Updated: 10/21/22124 Glucose WB/POC 164 mg/dL Specimen Type Cap Fingerstick BLOOD GASES ART + COOX PANEL [[id number]] (Abnormal) Collected: 10/20/22 2246 Order Status: Completed [...] >20% BLOOD GASES ART + COOX PANEL [[id number]] Order Status: Canceled Specimen: Blood, arterial from Arterial Blood BLOOD GAS ART+LYTES+METAB+COOX POC NOTIF [[id number]] Collected: 10/20/221926 Order Status: Completed Specimen: Other Updated: 10/20/222099 Comment Notification Label Only - See Separate Report BLOOD GAS+COOX+LYTES+METAB ARTERIAL POCT [[id number]] (Abnormal) Collected: 10/20/221935 Order Status: Completed Specimen: [...] Whole Blood 1.6 mmol/L HGB HCT PANEL [[id number]] (Normal) Collected: 10/20/22 1640 Order Status: Completed Specimen: Blood Updated: 10/20/22 1701 Hemoglobin 12.0 g/dL Hematocrit 36.6 % HEMOGLOBIN A1C [[id number]] (Abnormal) Collected: 10/20/22 1015 Order Status: Completed [...] to evaluate metabolic control in patients. Reference: [employer] Diabetes Association, Standards of Care in Diabetes -2020 In patients 70 years and older consider HbA1c target range of 7.0-7.5% (Reference: Ronal David et al. JAMDA. 2012) The Sebia assay for the measurement of HbA1c is a National Glycohemoglobin Standardization Program (NGSP) certified method. GLUCOSE - POINT OF CARE [[id number]] (Abnormal) Collected: 10/20/22 1132 Order Status: Completed Specimen: Blood Updated: 10/20/22 1142 Glucose WB/POC 124 mg/dL Specimen Type Cap Fingerstick LUPUS ANTICOAGULANT PANEL [[id number]] Collected: 10/20/22 0302 Order Status: Completed Specimen: [...] of APAS. GLUCOSE - POINT OF CARE [[id number]] (Abnormal) Collected: 10/20/22 0744 Order Status: Completed Specimen: Blood Updated: 10/20/22 0754 Glucose WB/POC 32 mg/dL Specimen Type Cap Fingerstick GLUCOSE - POINT OF CARE [[id number]] (Abnormal) Collected: 10/20/2247 Order Status: Completed Specimen: [...] prior. > Dictated by Bassam Jovel M.D. (resident associate) I, Gonzalez Velasco MD have personally reviewed [...] detail with the patient's care provider, Dr. Hetser by Dr. Rae via telephone at 8:19 [...] if febrile Gastrointestinal No active issues - SENIOR LITIGATION PARALEGAL swallow evaluation: failed - Diet: NG - [...] bedside Cordero Kyle Prado Medical Student, MS3 [facility]. Associated attestation - Dary Garvey MD [...] Salo after family left. Offered reflective listening. 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. Pt and Salo have two daughters, 6 and 15. Encouraged Salo in his honest conversation with the girls. Gave report to night Cristina estes for follow up overnight. 309/ Jorge Dodd 10/21/2022 12:25 AM * Jackelyn [...] Jorge Dodd - 10/20/2022 5:49 PM CDT Teleprinter Doni found pt's father in [facility] crying. Dad shared that pt was headed to surgery emergently to remove part of her skull . Met mom and pt's spouse Salo. Offered pastoral presence and prayerfor mom and dad. Family is waiting in [facility]. Surgeon met family and knows where to follow up with them. This systems engineering manager will follow up. 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) Vision: Corrected with glasses Hearing Exceptions: [...] ACTIVITY TOLERANCE: Patient's activity tolerance: fair. Modified Maryann: Current Modified [place] Score: 5 AM-PAC 6 Clicks Daily Activity [...] Patient will perform toileting with moderate assist Chcf Goal(s): Patient to discharge to appropriate next [...] Benjamin SLP - 10/20/2022 11:50 AM CDT [facility] Physical Medicine and Rehabilitation Bedside Swallow Assessment Patient: Consuelo Darby Med Record Number: [id number] Date of : 1980 Age: [age] year [...] placement for nutritional support and medication administration. SENIOR LITIGATION [place]GAL will continue to follow up for ongoin [...] Impression - Pharyngeal: Moderate Education/Interventions: While performing SENIOR LITIGATION [place]ALEGAL, Patient was instructed in: results of swallow [...] oropharyngeal swallow function to warrant diet upgrade. Chcf Goal (s): Patient to be independent/baseline with functional mobility and self care and be able to safely discharge to prior level of care. Plan: Continue NPO status with plan for ongoing SENIOR LITIGATION [place]ALEGAL follow up. Cass Lu M.S., [facility]-SENIOR LITIG[facility] [place] Speech Language Pathologist [phone] * Bulmaro Ochoa [...] Information Primary Emergency Contact: Hi Darby Address: [address] [place] [phone] [facility] Relation: Spouse Secondary Emergency Contact: Sandra Disla [facility] Mobile Relation: Mother Transportation at Discharge: Family: READMISSION RISK SCORE is 15 at 11:11 AM 10/20/2022.: Name: Bulmaro Ochoa RN BSN fleet dispatch manager [phone] * Tia Morales, PT - 10/20/2022 10:37 AM CDT [facility] Physical Medicine and Rehabilitation Physical Therapy Initial Evaluation Note Patient: Consuelo Darby Med Record Number: [id number] Date of : 1980 Age: [age] year [...] Active;Driving;Other (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) Vision: Corrected with glasses Hearing Exceptions: [...] monitoring of vitals Modified Maryann: Current Modified [place] Score: 5 AM-PAC 6 Clicks Mobility Raw [...] transfer bed to/from chair with moderate assist Chcf Goal(s): Patient to discharge to appropriate next [...] at conclusion of PT eval. * Cass Benjamni SLP - 10/20/2022 10:33 AM CDT [facility] Department of Physical Medicine & Rehabilitation Progress Note Patient: Consuelo Darby Med Record Number: [id number] Date of : 1980 Age: [age] year old 10/20/22 1033 Missed Visit Missed Visit Pt with other disciplines x2 at time of visit this morning, will plan to follow up agian today for swallow jeromeal Cass uL M.S., [facility]-SENIOR LITIGATION [place] Speech Language Pathologist [phone] * Jaime Drew [...] 0824 10/19/22 0808 06/15/22 0757 12/09/18 0812 07/25/18 2056 03/01/16 [...] 35.4 42.6 42.5 Recent Labs Component Name 10/20/2230110/19/2224 06/15/22 075 NA 138 139 138 CL 108* 108* 107 CO2 21* 21* 23 BUN 6* 13 12 CREATININE 0.50* 0.84 0.74 CALCIUM 8.2* 8.9 8.9 No results for input(s): MG in the last 89049 hours. No results for input(s): PHOS in the last 10204 hours. Recent Labs Component Name 10/19/2282310/19/22 0809 PT 12.3 - INR 0.9 0.9 No results for input(s): A1C in the last 41599 hours. Recent Labs Component Name 10/20/2230106/15/22 075 CHOL 173 204* HDL 42 37* LDLCALC 91 117* TRIG 201* 251* Recent Labs Component Name 06/15/22 075 TSH 1.873 No results for input(s): CKMB, CKTOTAL, CKMB, TROPONINI, BNP in the last [address] ANGIO BRAIN NECK STROKE Result Date: 10/19/2022 PROCEDURE: CT ANGIO BRAIN NECK STROKE, DATE/TIME OF EXAM: 10/19/2022 8:16 AM, LOCATION [facility] INDICATION: Code Stroke ADDITIONAL CLINICAL INFORMATION: [...] DATE/TIME OF EXAM: 10/19/2022 8:04 AM, LOCATION [facility] INDICATION: Code Stroke ADDITIONAL CLINICAL INFORMATION: [...] pending PT/OT Evaluation: pending Smoking cessation; will grief counsellor: N/A ?? Neurological ?? R M1 ischemic [...] pending PT/OT Evaluation: pending Smoking cessation; will grief counsellor: N/A Migraine - verapamil 40 TID Cardiovascular [...] Gastrointestinal ? No acute issues ?? - SENIOR LITIGATION [place]GAL swallow evaluation Renal/Electrolytes ? No acute issues [...] 10/19/2022 Hospital Day: 1 Subjective HPI: Consuelo Dabry is a 41 year old female who developed acute L sided weakness, L sided sensory deficits, and dysarthria. L sided weakness resolved in route and dysarthria improved in route. On arrival, R gaze palsy and L hemianopsia. NIHSS:7. Pt was given TNK. TICI2b revascularization of R MCA M1 occlusion. ICU Timeline: Admitted to NeuroICU for post TNK and thrombectomy monitoring. Started on jefe beyerip for BP above goal of SBP<140 on 10/19 that was unable to be controlled with prn pushes. Patient needs to lay flat so SENIOR LITIGATION PARALEGAL swallow assessment not possible for the time [...] (!) 120 31 98 % -- -- 10/19/222099 136/82 -- -- 108 20 97 % -- -- 10/19/227 144/79 -- -- -- -- -- -- -- 10/19/221999 132/71 97.7 ??F (36.5 ??C) Axillary (!) 137 14 97 % -- -- 10/19/22 1950 -- -- -- (!) 116 17 98 % -- -- 10/19/221944 -- -- -- (!) 125 16 97 % -- -- 10/19/221929 -- -- -- (!) 113 25 97 [...] as patient needs to lie flat and SENIOR LITIGATION PARALEGAL cannot evaluate. Cardiovascular Pulse Min: 94 Max: [...] Protonix 40 mg home medication ordered. - SENIOR LITIGATION PARALEGAL swallow evaluation: pending SENIOR LITIGATION PARALEGAL - Diet: starting tube feeding - Last [...] at bedside Case findings discussed with Dr. Garvey, MD Consuelo Brown Medical Student, M3 [facility]. Associated attestation - Dary Garvey MD [...] Gardner SLP - 10/19/2022 1:20 PM CDT [facility] Department of Physical Medicine & Rehabilitation Progress Note Patient: Consuelo Darby Med Record Number: [id number] Date of : 1980 Age: [age] year old 10/19/22 1320 Missed Visit Missed Visit Other (Comment) SENIOR LITIGATION PARALEGAL orders received and acknowledged. Per consultation with RN pt not cleared to sit up to participate in swallow evaluation until later this date. SENIOR LITIGATION PARALEGAL will reattempt as appropriate. Speech Language Pathologist [...] Information Primary Emergency Contact: Hi Darby Address: [address] [place] [address] [place] [address] [facility] Relation: Spouse Secondary Emergency Contact: Sandra Disla [facility] Mobile Relation: Mother Insurance: Payer/Plan Subscriber Name Rel Member # Group # [employer] [facility]* CONSUELO DARBY [id number] [address] [address] Prior level of functioning: Independent with ADL's [...] Mother and are supportive. Short Term Goals: Special Collections Librarian Goals: Family/Support included in planning: Yes Patient and Family Questions/Concerns: None at present. Discharge Plan: Anticipated level of care at discharge: Home, Acute Rehab Facility Anticipated Discharge Date: 10/26/22 Bulmaro Ochoa RN BSN fleet dispatch manager [phone] * Yoon Cuadra PharmD - 10/19/2022 12:29 PM CDT [facility] Pharmacy Medication History Note The current home/prior to admission (MANAGER WIRELESS) medication list has been reviewed by a [...] please do not hesitate to contact the [facility] pharmacy dept ([id number]). Thank you. Assessment Completed by: Yoon Cuadra [...] Hester MD - 10/19/2022 8:03 AM CDT [facility] Stroke History and Physical Consuelo Darby [...] N/A Code Stroke Paged 7:26am Arrival at [facility] ED 7:52am NIHSS Completed 7:56am First Imaging [...] No aphasia; normal. 10 Dysarthria 1 = Mrxu-wr-fwliktng dysarthria; patient slurs at least some words [...] neuroimaging? no 3. Baseline disability with modified Maryann score greater than or equal to 3? [...] pending PT/OT Evaluation: pending Smoking cessation; will grief counsellor: N/A Neurological R M1 ischemic stroke; active [...] pending PT/OT Evaluation: pending Smoking cessation; will grief counsellor: N/A Cardiovascular No acute issues - 12-lead [...] respiratory distress Gastrointestinal No acute issues - SENIOR LITIGATION PARALEGAL swallow evaluation Renal/Electrolytes No acute issues - [...] 110 23 -- Recent Labs Component Name 10/20/22 03010/19/22 0824 06/15/22 0757 NA 138 139 138 CL 108* 108* 107 CO2 21* 21* 23 BUN 6* 13 12 CREATININE 0.50* 0.84 0.74 CALCIUM 8.2* 8.9 8.9 Recent Labs Component Name 10/20/22 03010/19/22 0824 06/15/22 0757 WBC 19.5* 10.9* 9.6 RBC 3.83 4.73 4.60 HGB 11.9* 14.4 14.1 HCT 35.4 42.6 42.5 Recent Labs Component Name 10/20/22 03006/15/22 0757 CHOL 173 204* TRIG 201* 251* HDL 42 37* LDLCALC 91 117* No results for input(s): HGBA1C, A1C, JWBCOMVHD6A, EAG in the last 88487 hours. Recent Labs Component Name 10/20/2230110/19/22 0824 06/15/22 0757 PLTCOUNT [id number] documented in this encounter Procedure Notes * Isacc Lizama MD - 11/05/2022 12:54 PM CDTProcedure(s): [place] CATH BLADDER SIMPLE TEMP Pre-Procedure Diagnose(s): Urinary [...] the meatus 3 separate times. A 14 Wallisian silicone puentes catheter was covered with sterile [...] catheter. Please reference table below. Level Puentes Unicoi Sample Patient 1 Teaching Puentes (i.e. Medical student, Tech, RN) - Female without urologic history 2 Registered Nurse, Any Physician, Any Advanced Practitioner - Male >65 yo 3 Charge or Experienced Nurse, Urology SOLE MOLDING MACHINE OPERATOR, Urologist - Multiple failed attempts 4 Urologist [...] completion, the catheter was connected to the conveyor monitor and calibrated. Appropriate waveform and blood pressure tracing was observed. Estimated blood loss is 10cc. Sal Causey MD PGY4 Neurology Resident Associated attestation - Dary Garevy MD - 10/19/2022 4:14 PM CDT I [...] file Occupational History ??? 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 Smoking status: [...] No Stress: No Stress Concern Present (10/19/2022) [place] [employer] - Occupational Stress Questionnaire [...] answer any further questions. Jean Perry MD [facility] Dermatology Resident, PGY-4 Associated attestation - Jovany Lindsay MD - 11/15/2022 9:24 PM CDT Attending Physician Supervisory Note I have seen and examined the patient with the resident and I agree with the findings and plan of care as documented by the resident. Date of Service : 11/15/2022 Jovany Lindsay MD Professor Department of Dermatology [facility] * Jean Perry MD - 11/14/2022 [...] History ??? 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 Smoking status: [...] No Stress: No Stress Concern Present (10/19/2022) [place] [employer] - Occupational Stress Questionnaire [...] will continue to follow. Jean Perry MD [facility] Dermatology Resident, PGY-4 Associated attestation - Jovany Lindsay MD - 11/15/2022 9:45 PM CDT Attending Physician Supervisory Note Discussed with resident, pt is improving. Pt was not seen by me. Jovany Lindsay MD Professor Department of Dermatology [facility] * Alhaji Otoole MD - 11/14/2022 7:57 AM CDTAssociated Order(s): IP CONSULT TO HEMATOLOGY [facility] Hematology/ Oncology CONSULT NOTE Admission Date: [...] file Occupational History ??? 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 Smoking status: [...] No Stress: No Stress Concern Present (10/19/2022) [place] [employer] [employer] - Occupational Stress Questionnaire [...] results for input(s): TROPONINI in the last 13212 hours. Amylase/Lipase: No results for input(s): CHELI in the last 54133 hours. Recent Labs Component Name 07/07/13 2319 [...] Palacios MD - 11/12/2022 5:45 PM CDT [facility] INTERNAL MEDICINE CONSULT NOTE Admission Date: [...] RUQ pain. 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 Smoking status: [...] No Stress: No Stress Concern Present (10/19/2022) [place] [employer] [employer] - Occupational Stress Questionnaire [...] results for input(s): TROPONINI in the last 03635 hours. Amylase/Lipase: No results for input(s): CHELI in the last 58021 hours. Recent Labs Component Name 07/07/13 2319 [...] file Occupational History ??? 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 Smoking status: [...] No Stress: No Stress Concern Present (10/19/2022) [place] [employer] [employer] - Occupational Stress Questionnaire [...] will continue to follow. Tim Rios MD [facility] Dermatology Resident, PGY-2 Associated attestation - Jovany Lindsay MD - 11/15/2022 9:43 PM CDT Attending Physician Supervisory Note I have examined the patient's photo with the resident and I agree with the findings and plan of care as documented by the resident. Date of Service : 11/12/2022 Jovany Lindsay MD Professor Department of Dermatology [facility] * Emir Rooney PA-C - 11/10/2022 [...] > Dictated by Tim Major MD (residential program director). Alexx Ornelas have personally reviewed and interpreted this examination/study. > Interpreting Provider: Alexx Lopez on 11/07/2022 10:30 PM XR ABDOMEN KUB PORTABLE Result Date: 11/06/2022 IMPRESSION: Non-obstructive bowel gas pattern. Report dictated by Mc Castro MD, (residential program director). Pepe Ornelas MD have personally reviewed and [...] at ~1230. Emir Rooney PA-C Interventional Radiology [phone] Associated attestation - César Rain MD - [...] the same conclusion. César Rain MD, DABR Gastrointestinal Technician, [facility]. Vascular and Interventional Radiologist Minimally Invasive Specialist Endovascular interventions for Peripheral Arterial Disease ( PAD) / DVT/ Varicose veins and Pulmonary Embolism Endovascular interventions for Dialysis access Prostate Artery Embolization for BPH in men Uterine Fibroid Embolization for Uterine fibroids in Women For Outpatient/ inpatient appointments : For referrals to VIR: Ambulatory Referral to Interventional Radiology ([id number]) [facility] Coordinator: [phone] [place] Inpatient consults: SOLE MOLDING MACHINE OPERATOR Ascom [phone] [facility] Hospital Coordinators : [phone] [facility] Inpatient consults:[phone] For Hospital to Hospital VIR Transfers * [...] > Dictated by Tim Major MD (residential program director). IAlexx have personally reviewed and interpreted this examination/study. > Interpreting Provider: Alexx Lopez on 11/07/2022 10:30 PM XR ABDOMEN KUB PORTABLE Result Date: 11/06/2022 IMPRESSION: Non-obstructive bowel gas pattern. Report dictated by Mc Castro MD, (residential program director). I, Pepe Gonzalez MD have personally reviewed [...] > Dictated by Tim Major MD (residential program director). I, Alexx Lopez have personally reviewed and [...] from the original note were not included. [facility] Division of Urologic Surgery New Consult Note [...] status: Occupational History ??? 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 Smoking status: [...] Stroke assessment completed 10/19. Maru Mcduffie RN [phone] Care Coordination Nurse Clothing And Textiles Teacher * Cass Gomez APRN-VOCAL PERFORMER - 10/30/2022 8:17 AM CDTAssociated Order(s): IP [...] s/p tenecteplase and thrombectomy (10/19/2022), right sided jtxkhs-faagcs-mnpxopls decompressive sonya-craniectomy for refractory ICP (10/20/2022) and [...] is dictated by Kayla Stevenson MD (residential program director) 1 I, Lonnie Rae MD have personally [...] is dictated by Miranda Bowen MD (residential program director) Oriana Ornelas MD have personally reviewed and [...] > Dictated by Clarisa Cantrell MD (residential program director). Alexx Ornelas have personally reviewed and interpreted [...] is dictated by Miranda Bowen MD (residential program director) Joni Ornelas MD have personally reviewed and [...] right lateral ventricle, and approximately 3-4 mm iieeh-bm-lkkx midline shift, grossly similar to the prior. [...] Report dictated by Tim Major MD (residential program director). IJasper MD have personally reviewed and interpreted [...] you. Please contact us with further questions SCOTT Locke * Anita Richards - 10/28/2022 10:11 AM CDTAssociated Order(s): IP CONSULT TO RECORDS MANAGEMENT DIRECTOR Social Work Consult Note Consult acknowledged Chart reviewed Reason for Consult: SW consulted by Bulmaro Ochoa RN for Patient Admission in facility Comments: Patient is tentatively scheduled for OR 10/30 for right femoral cutdown, thrombectomy, angiogram with possible intervention, possible vein harvest. Patient will need updated therapy orders and notes following surgery. Patient is an [employer] [facility] employee w/ [employer] insurance. [employer] [facility] Manager Van Becky is following for disposition needs Discharge Plan: Post acute recommendation: Undetermined or Intense 3 hour per day multidisciplinary inpatient therapies Discharge Facility Information: [facility] Anticipated Discharge Date: 11/03/22 Payer/Plan Subscriber Name Rel Member # Group # [facility] WELL* RICKDANIELCONSUELO Dayami Dennison [id number] [address] [address] Emergency Contacts: Extended Emergency Contact Information Primary Emergency Contact: Hi Darby Address: [address] [place] [address] [place] [address] [facility] Relation: Spouse Secondary Emergency Contact: Sandra Disla [facility] [employer] Relation: Mother Thank you for the referral, JAYLENE Holcomb, HUMERA [facility] 10/28/2022 10:12 AM * Jovana Armstrong MD [...] occlusion of the R EIA + proximal HIDE WASHER extending into the profunda with reconstitution identified [...] 140 CL 105 106 110* CO2 24 23 BUN 13 16 14 CREATININE 0.54* [...] is dictated by Miranda Bowen MD (residential program director) Oriana Ornelas MD have personally reviewed and [...] > Dictated by Clarisa Cantrell MD (residential program director). I, Alexx Lopez have personally reviewed and interpreted this examination/study. > Interpreting Provider: Alexx Lopez on 10/25/2022 4:16 PM Vascular Surgery High Risk Variables: Cardiac Arrhythmia: no Malnutrition: no Cardiomyopathy: no Chronic Kidney Disease: no Dementia: no Fluid & Electrolyte Disorders: no Respiratory Failure: no Shock: no Cachexia: no Coagulation Defect: ppw-kftjhngt-mdc gtt Jovana Armstrong MD PGY-6 Vascular Surgery Fellow 10/26/22 12:25 PM * Hodan Oliveira RN - 10/25/2022 11:08 AM CDTAssociated Order(s): IP CONSULT TO PRODUCT SCIENTIST I have been consulted due to the possibility or diagnosis of stroke, chart reviewed. Patient Name: Consuelo Darby Arrival: Start: Start (10/19/22 08) EMS Activated Code Stroke: Yes Arrival Mode: EMS Arrival Service(document name here): [place] [id number] (10/19/22 08) EMS Glucose Bedside (mg/dL): 141 mg/dL (10/19/22 08) EMS BP: 136/84 (10/19/22 08) Last Known Well: Last known to be well Last known well - Date: 10/19/22 (10/19/22 1050) Last known well - Time: 06 (10/19/22 105) Initial NIHSS Score: NIH Total: 26 (10/19/22 [...] based on HgBA1c: Diabetic I) HGBA1C >6.5 Eyeglass Maker has been consulted per protocol to provide [...] right lateral ventricle, and approximately 3-4 mm lksbk-hy-plde midline shift, grossly similar to the prior. [...] Report dictated by Tim Major MD (residential program director). I, Jasper Sifuentes MD have personally reviewed [...] report is dictated by Miranda Bowen MD(residential program director) Jasper Ornelas MD have personally reviewed and [...] hemorrhage. Report dictated by Lorenzo Horta MD (resident associate). Lonnie Ornelas MD have personally reviewed and [...] prior. > Dictated by Bassam Jovel M.D. (resident associate) Gonzalez Ornelas MD have personally reviewed and interpreted this examination/study. > Interpreting Provider: Gonzalze Velasco MD on 10/20/2022 11:[address] [...] Darby. Hodan Oliveira RN, BSN Stroke Navigator, [facility] Ascom: [phone] Email: [email or web address] * Ernestine Almanza DMD - 10/24/2022 8:34 [...] Race: White/ Ethnicity: Not or Origin Languages Azeri [employer] [facility] [address] Employer: [employer] CSN: [id number] [facility]: [id number] E#: [id number] Contact Information [phone] (Home Phone) [phone] (Work Phone) Alternate Product Specialist ?? +1 more?? Hi Darby (Spouse) [phone] (Home Phone) Unit: [facility] 3N ICU Bed: 309 / 01 Current location: [facility] MRI * Liam Parks MD - 10/24/2022 1:06 PM CDT [facility] Infectious Diseases Consultation Patient Name: Consuelo Darby 1980 Room: [facility] Date of Admission: 10/19/2022 Date of Service: 10/24/2022 Primary Care Physician: Yvan Booth MD Attending Physician: Emir Vail MD Reason for Infectious Disease Consultation Aortic valve vegetation, infective endocarditis rule out History of Present Illness HPI: Consuelo Darby is a 41 year old female with a past medical history significant foressential hypertension, migraine, GERD. Patient presented to [facility] on 10/19/2022 as code stroke due to [...] or tick bites. She lives with in [place], [place]. 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 They recently went to a trip to [place] for vacation, she bathed in the sea [...] TUMOR/POLYP/LESION (ANY METHOD) Social History As per [facility] Social History Socioeconomic History ??? Marital status: Spouse name: Not on file ??? Number of children: Not on file ??? Years of education: Not on file ??? Highest education level: Not on file Occupational History ??? 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 Smoking status: [...] No Stress: No Stress Concern Present (10/19/2022) [place] [employer] - Occupational Stress Questionnaire [...] History Current Antibiotics None Prior Antibiotics At [facility] Cefazolin 10/20 Vancomycin 10/20 Home Medications Prior [...] Liam Parks MD (PGY-5) Infectious Diseases Fellow [facility] Pager: [phone] ID Clinic Associated attestation - Arturo Delacruz [...] coordination of care. 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, smoked from age [age] yrs0.5-1 ppd, no [...] Occupational History ??? 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 Smoking status: [...] assess as she was intubated. Good hand birthing nurse bilaterally. MSK: No synovitis, dactylitis, or enthesitis. [...] Range INR 0.9 0.9 - 1.2 Device [id number] Juvenile Officer ID [id number] EKG 12-LEAD Result Value Ref Range Ventricular Rate 129 BPM Atrial Rate 129 BPM P-R Interval 134 ms QRS Duration ms 90 ms Q-T Interval ms 318 ms QTC Calculation (Bezet) 465 ms Calculated P [place] 55 degrees Calculated R [place] 13 degrees Calculated T [place] 5 degrees Interpretation EKG SINUS TACHYCARDIA OTHERWISE NORMAL ECG NO PREVIOUS ECGS AVAILABLE Confirmed by FLORA OTT MD ([id number]) on 10/19/2022 5:38:23 PM CBC W AUTO [...] by CKD-EPI >90 >=90 mL/min/1.73 m2 PT-INR [facility] Result Value Ref Range PT 12.3 12.1 [...] BUBBLE STUDY Result Value Ref Range BSA 2.0097868 m2 LV biplane EF 64 54 - [...] Age Predicted HR 181 Target HR 154 JBDID1EJ 6.054 cm EPRNA2HY 5.318 cm LEFT VENTRICLE STROKE VOLUME BIPLANE [...] Dr. Jasso. Josue Castellanos MD Rheumatology Fellow [facility] [employer] Associated attestation - Gonzalez [...] Rheumatology Fellowship Program Department of Internal Medicine [facility] * Jaden Ordaz, PHOTOGRAPHIC HAND DEVELOPER-VOCAL PERFORMER - 10/23/2022 3:23 PM CDTAssociated Order(s): IP CONSULT TO CARD SURGERY - CARDIAC TEAM CARDIAC SURGERY Consult H&P Patient Name: Consuelo Darby : 1980 Private Tar Chaser: Dr. Stuart PCP: Yvan Booth MD Referring Facility: [facility] Subjective: Consuelo Darby is a 41 year [...] CBC: Recent Labs Component Name 10/23/22 0129 10/21/226 10/21/22 0753 10/21/22 0459 WBC 16.7* 18.4* [...] 143* 179* 180* O2SAT 99 99 99 LUR1FOK 19.2* 18.1* 20.3 ECHO: TTE- Left??Ventricle: Left [...] and final recommendations to follow. Jaden Ordaz APRN-VOCAL PERFORMER 10/23/2022 3:25 PM Associated attestation - Mahad [...] see . Consuelo Darby in consultation at [facility] on 10/23/2022 for evaluation of vegetation [...] EXAM: General appearance: sedated and intubated HEENT: [place] noted in the scalp Neck: The thyroid [...] results for input(s): MG in the last 39490 hours. Recent Labs Component Name 10/23/22 0129 [...] bacterial vegetation (aortic side). Differential also includes mwu-dezhebcyn-zuogtdtwmy-endocarditis (NBTE)/ Libman- Sachs vegetation. Follow up work [...] Units Date/Time GLUCOSE - POINT OF CARE [[id number]] Collected: 10/22/22 0858 Order Status: Completed Specimen: Blood Updated: 10/22/22 0859 Glucose WB/POC 109 mg/dL Specimen Type Cap Fingerstick PLATELET COUNT AUTO CITRATED BLOOD [[id number]] (Normal) Collected: 10/22/22 0153 Order Status: Completed Specimen: Blood Updated: 10/22/22 0221 Platelet Count Citrated Blood 199 10??3/uL CBC W AUTO DIFFERENTIAL [[id number]] (Abnormal) Collected: 10/21/222315 Order Status: Completed Specimen: [...] % Immature Granulocytes Absolute 0.13 MAGNESIUM BLOOD [[id number]] (Normal) Collected: 10/21/222315 Order Status: Completed Specimen: Blood Updated: 10/21/22 2351 Magnesium 2.2 mg/dL PHOSPHORUS BLOOD [[id number]] (Abnormal) Collected: 10/21/222315 Order Status: Completed Specimen: Blood Updated: 10/21/22 235 Phosphorus 2.7 mg/dL BASIC METABOLIC PANEL (CALCIUM TOTAL) [[id number]] (Abnormal) Collected: 10/21/222315 Order Status: Completed Specimen: Blood Updated: 10/21/222350 BUN 16 mg/dL Creatinine 0.65 mg/dL Sodium 142 mmol/L Potassium 3.7 mmol/L Chloride 111 mmol/L CO2 20 mmol/L Glucose 120 mg/dL Calcium 8.0 mg/dL Anion Gap 15 BUN/Creatinine Ratio 25 Osmolality Calculated 296 mOsm/kg eGFR by CKD-EPI >90 mL/min/1.73 m2 GLUCOSE - POINT OF CARE [[id number]] (Abnormal) Collected: 10/21/222317 Order Status: Completed Specimen: Blood Updated: 10/21/222322 Glucose WB/POC 171 mg/dL Specimen Type Venous PROTEIN S ACTIVITY [[id number]] (Abnormal) Collected: 10/20/22 030 Order Status: Completed Specimen: Blood Updated: 10/21/22 [...] reference intervals for this test in the [facility] Test Directory ([employer]). Performed By: [facility] [address] [place] [address] Bilingual Receptionist: Boo Bond MD, PhD CLIA Number: [id number] PROTEIN C ACTIVITY [[id number]] Collected: 10/20/22301 Order Status: Completed Specimen: Blood [...] reference intervals for this test in the [facility] Test Directory ([employer]). Performed By: [facility] [address] [place] [address] Bilingual Receptionist: Boo Bond MD, PhD CLIA Number: [id number] GLUCOSE - POINT OF CARE [[id number]] (Abnormal) Collected: 10/21/221842 Order Status: Completed Specimen: Blood Updated: 10/21/22 184 Glucose WB/POC 129 mg/dL Specimen Type Cap Fingerstick GLUCOSE - POINT OF CARE [[id number]] (Abnormal) Collected: 10/21/22 1210 Order Status: Completed [...] at bedside Radames Hinkle MD Neurology Resident. [facility]. Associated attestation - Dary Garvey MD [...] No GI issues noted, Last BM was MANAGER WIRELESS. On daily Senna. Labs reviewed, noted elevated [...] Other (Comment) (has not been assessed by SENIOR LITIGATION PARALEGAL) Pain affectingintake: No Estimated Needs: KCAL: 0386-4883 (20-25kcal/kg IBW) Protein (g): >110 (>2g/kg IBW) [...] Component Value Units Date/Time HGB HCT PANEL [[id number]] Updated: 10/20/22 1512 Order Status: Sent Specimen: Blood HEMOGLOBIN A1C [[id number]] (Abnormal) Collected: 10/20/22 1015 Order Status: Completed [...] to evaluate metabolic control in patients. Reference: [place] Diabetes Association, Standards of Care in Diabetes -2020 In patients 70 years and older consider HbA1c target range of 7.0-7.5% (Reference: Ronal David et al. JAMDA. 2012) The Sebia assay for the measurement of HbA1c is a National Glycohemoglobin Standardization Program (NGSP) certified method. GLUCOSE - POINT OF CARE [[id number]] (Abnormal) Collected: 10/20/22 113 Order Status: Completed Specimen: Blood Updated: 10/20/22 114 Glucose WB/POC 124 mg/dL Specimen Type Cap Fingerstick LUPUS ANTICOAGULANT PANEL [[id number]] Collected: 10/20/22 0302 Order Status: Completed Specimen: Blood Updated: 10/20/225 APTT 24.4 Seconds PT 13.6 Seconds INR [...] of APAS. GLUCOSE - POINT OF CARE [[id number]] (Abnormal) Collected: 10/20/22743 Order Status: Completed Specimen: Blood Updated: 10/20/22753 Glucose WB/POC 32 mg/dL Specimen Type Cap Fingerstick GLUCOSE - POINT OF CARE [[id number]] (Abnormal) Collected: 10/20/22746 Order Status: Completed Specimen: Blood Updated: 10/20/22753 Glucose WB/POC 118 mg/dL Specimen Type Cap Fingerstick BASIC METABOLIC PANEL (CALCIUM TOTAL) [[id number]] (Abnormal) Collected: 10/20/22301 Order Status: Completed Specimen: Blood Updated: 10/20/22335 BUN 6 mg/dL Creatinine 0.50 mg/dL Sodium 138 mmol/L Potassium 3.6 mmol/L Chloride 108 mmol/L CO2 21 mmol/L Glucose 140 mg/dL Calcium 8.2 mg/dL Anion Gap 13 BUN/Creatinine Ratio 12 Osmolality Calculated 286 mOsm/kg eGFR by CKD-EPI >90 mL/min/1.73 m2 LIPID PROFILE [[id number]] (Abnormal) Collected: 10/20/22301 Order Status: Completed Specimen: [...] >500 mg/dL: Very High CBC W/O DIFFERENTIAL [[id number]] (Abnormal) Collected: 10/20/22301 Order Status: Completed Specimen: Blood Updated: 10/20/22 0330 WBC 19.5 10??3/uL RBC 3.83 10??6/uL Hemoglobin 11.9 g/dL Hematocrit 35.4 % MCV 92.4 fL MCH 31.1 pg MCHC 33.6 g/dL RDW-SD 45.7 fL RDW-CV 13.5 % Platelet Count 292 10??3/uL MPV 9.9 fL nRBC Absolute 0.00 10??3/uL nRBC Auto 0.0 /100 WBC PROTEIN S ACTIVITY [[id number]] Collected: 10/20/22301 Order Status: Sent Specimen: Blood Updated: 10/20/22308 PROTEIN C ACTIVITY [[id number]] Collected: 10/20/22301 Order Status: Sent Specimen: Blood Updated: 10/20/22308 GLUCOSE - POINT OF CARE [[id number]] (Abnormal) Collected: 10/19/221949 Order Status: Completed Specimen: [...] at bedside Radames Hinkle MD Neurology Resident. [facility]. Associated attestation - Dary Garvey MD [...] workup/prevention per stroke team NSGY consulted for [facility] watch Repeat CTH if exam change and [...] watch. Patient medications include no blood thinners. [facility] NEUROSURGERY HIGH RISK VARIABLES Severe Brain Conditions [...] IP CONSULT TO PHYSICAL MED AND REHAB [facility] Rehab has initiated an evaluation per stroke protocol. Will continue to follow for medical stability and tolerance/participation in therapies. Thank you for the referral. Elida Yancey RN, BSN Clinical Liaison [facility] [phone] * Stacy Lopez RD/OMAIRA - 10/20/2022 8:48 [...] Elevated TG, no A1c in EMR. BM MANAGER WIRELESS. Assessment: Med/Surg History and Clinical Diagnoses: 41yo [...] Other (Comment) (has not been assessed by [employer]ENIOR LITIGATION [facility]ALE[facility]) Pain affectingintake: No Estimated Needs: KCAL: 1650 [...] Nutrition Goal Progress: New goal established Ascom 3073 * Radames Hinkle MD - 10/19/2022 3:48 [...] pushes. Patient needs to lay flat so S[employer] LITIG[employer] [facility]ALE[facility] swallow assessment not possible for the time [...] 5/5 5/5 5/5 Left 1/5 1/5 1/5 /5 Muscle Stretch Reflexes BI TRI BR PAT ACH TOES Right 2 2 2 2 2 Down Left 2 2 2 2 2 Down Sensory Light Touch Not tested Noxious Stimuli Symmetric and bilateral Temperature Not tested Pallesthesia Not tested Cerebellar REYNOLD due to patient condition Gait Deferred Labs: Lab Results-Last 24 Hours Procedure Component Value Units Date/Time URINE DRUG SCREEN IMMUNOASSAY [[id number]] (Normal) Collected: 10/19/221409 Order Status: Completed Specimen: Urine Updated: 10/19/221447 Amphetamines Screen Urine Negative Barbiturates Screen Urine Negative Benzodiazepine Screen Urine Negative Opiates Urine Negative Cocaine Metabolites Urine Negative Phencyclidine Screen Urine Negative Cannabinoids Screen Urine Negative Methadone Screen Urine Negative Fentanyl Screen Urine Negative Narrative: The Urine Toxicology Screening Panel does not screen for Propoxyphene, Meprobamate, Carisoprodol, Trazodone, uzoj-syz-yiaorut medications and/or volatiles (Acetone, Isopropanol, Methanol or Ethylene Glycol). Ethanol, Salicylate, Acetaminophen, Tricyclic Antidepressants and several therapeutic drugsmay be individually assayed in serum or plasma specimen. Toxicology testing by the [facility] Laboratory is an aid to medical diagnosisand treatment of patients. No documented chain of custody was maintained. Results are intended to be used for clinical purposes only. HCG URINE QUALITATIVE [[id number]] (Normal) Collected: 10/19/221409 Order Status: Completed Specimen: Urine Updated: 10/19/221428 Test Urine Negative PT-INR [facility] [[id number]] (Normal) Collected: 10/19/22 0824 Order Status: Completed Specimen: Blood Updated: 10/19/22 09 PT 12.3 Seconds INR 0.9 Comment: The suggested therapeutic range for standard coumadin (warfarin) therapy is an INR of 2.0-3.0. For high-risk patients (Mechanical Mitral Valve Prosthesis, etc.), the suggested prophylactic therapeutic range is an INR of 2.5-3.5. TROPONIN-I HIGH SENSITIVE BASELINE + 1HR [[id number]] Order Status: Sent Specimen: Blood HEMOGLOBIN A1C [[id number]] Order Status: Sent Specimen: Blood COMPREHENSIVE METABOLIC PANEL [[id number]] (Abnormal) Collected: 10/19/22823 Order Status: Completed Specimen: [...] >90 mL/min/1.73 m2 CBC W AUTO DIFFERENTIAL [[id number]] (Abnormal) Collected: 10/19/22823 Order Status: Completed Specimen: [...] Immature Granulocytes Absolute 0.04 HCG URINE QUALITATIVE [[id number]] Order Status: Canceled Specimen: Urine CREATININE - POCT INTERFACED [[id number]] (Normal) Collected: 10/19/22807 Order Status: Completed Specimen: Blood Updated: 10/19/22817 Creatinine POCT 0.78 mg/dL eGFR >90 mL/min/1.73 m2 GLUCOSE - POINT OF CARE [[id number]] Collected: 10/19/22 0756 Order Status: Completed Specimen: [...] as patient needs to lie flat and SENIOR LITIGATION [facility]GAL cannot evaluate. Cardiovascular Pulse Min: 94 Max: 130, BP Min: 120/73 Max: 174/91 Hx Hypertension - On Metoprolol 25 mg BID at home - Holding as patient needs to lie flat and SENIOR LITIGATION PARALEGAL cannot evaluate. Strict BP goal of SBP<140 [...] Protonix 40 mg home medication ordered. - [employer]ITIGATION [employer] swallow evaluation: pending - Diet:pending [employer] [facility] swallow eval. IVF ordered till tomorrow afternoon [...] Feeds/Fluids: NaCL continuous infusion until evaluation by [employer]ENIOR LITIGATION [facility]GAL Analgesia: tylenol IV for back pain Sedation: [...] at bedside Radames Hinkle MD Neurology Resident. [facility]. Associated attestation - Dary Garvey MD [...] 12:18 PM CDTAssociated Order(s): IP CONSULT TO RECORDS MANAGEMENT DIRECTOR Consult acknowledged New patient to Stroke Caseload Chart reviewed Stroke type: Ischemic Patient is currently undergoing medical interventions/evaluations; Cerebral angiogram today. Patient is not medically ready to transition to next level of care Post acute recommendation: Undetermined; pending skilled therapy evaluations Insurance authorization is required Payer/Plan Subscriber Name Rel Member # Group # [id number] [id number] [employer]* CONSUELO DARBY Dayami Dennison [id number] [address] [address] Please refer to Nurse [employer] Text[employer] Teacher's Stroke Psychosocial Assessment note for additional information SW will continue to follow for disposition needs as appropriate Thank you for the referral, JAYLENE Holcomb MBA [facility] 10/19/2022 12:19 PM documented in this encounter [...] procedure and its findings. Royer Stovall MD Sheet Combining Operator 11/15/22 1:09 PM I , , was [...] MD - Primary * Gisselle Florentino MD Track Fitter(s): Rachna Yuko, DO Anesthesia Type: general ETT Complications: none Findings: PT and AT signals completed at conclusion of case EBL: 200 mL Urine Output : 500 mL IV Fluid Intake: per anesthesia Drains: Enteral - Nasal/Oral Naso-gastric Nostril/Nare;Left (Active) Output Description None/NA 10/30/22 0800 Tube Status Clamped 10/30/22 0800 Surrounding Skin Dry;Intact 10/30/22 0800 Site Assessment [facility] 10/30/22 0800 Tube Repositioned No 10/30/22 0800 External Tube Length (cm) 64 cm 10/30/22 0600 Position verified Auscultation 10/30/22 0800 Residual Amount (ML) *Excluding Tungsten* 0 ML 10/29/22 1800 Flush Amount 100 ML 10/29/22 2000 Flush Type Water 10/29/22 2000 [REMOVED] Drain 1 Flat Anterior;Left;Upper Head (Removed) Drain Output Amount 20 ml 10/23/22 0400 Status Patent;Device Compressed 10/23/22 1200 Site/Line Assessment [facility] 10/23/22 1200 Dressing Type Not Applicable 10/23/22 1200 Dressing Status Other 10/23/22 1000 Output Description Serosanguinous 10/23/22 1200 [REMOVED] Enteral - Nasal/Oral Naso-gastric Nostril/Nare;Right (Removed) Output Description Yellow;Green;Bile 10/22/22 0600 Tube Status Clamped 10/23/22 0800 Surrounding Skin Dry;Intact 10/23/22 0800 Site Assessment [facility] 10/23/22 0800 Internal Tube Length (cm) 65 cm 10/23/22 0800 Position verified X-Ray ;Stomach contents obtained 10/23/22 0800 Intake (ml) 90 ml 10/22/22 1800 Flush Amount 255 ML 10/23/22 0600 Flush Type Water 10/23/22 0600 [REMOVED] Enteral - Nasal/Oral Naso-gastric Nostril/Nare;Right (Removed) Tube Status Clamped 10/24/22 1000 Surrounding Skin Dry;Intact 10/24/22 1000 Site Assessment [facility] 10/24/22 1000 Internal Tube Length (cm) 65 cm 10/24/22 1000 Position verified Auscultation;Stomach contents obtained 10/24/22 1000 Intake (ml) 200 ml 10/24/22 0800 Flush Amount 295 ML 10/24/22 0600 Flush Type Water 10/24/22 0600 [REMOVED] Enteral - Nasal/Oral Naso-gastric Nostril/Nare;Right (Removed) Tube Status Infusing 10/28/22 2200 Surrounding Skin Dry;Intact 10/28/22 2200 Site Assessment [facility] 10/28/22 2200 Tube Repositioned No 10/28/22 220 External Tube [...] Implant Name Type Inv. Item Serial No. Special Education Administrator Lot No. LRB No. Used Action Patch Cv 6X1Cm Vsgrd Bvn Pricrd Strl Patch Cv 6X1Cm Vsgrd Bvn Pricrd Strl [employer] [id number] Right 1 Implanted Rachna Huntley DO * Operative - Valdez Clay MD - 10/30/2022 11:31 AM CDT Vascular Surgery Operative Note Patient Name: Consuelo Darby Date of Surgery: 10/30/2022 Surgeon: Dr Clay Track Fitter: Rachna Huntley DO; Gisselle Florentino MD Pre-Op [...] and the signals in the profunda and SFAwere weaker than expected. We, therefore, access the common femoral with a micro access kit and completed an angiogram. There was still a small luminal irregularity in the proximal common femoral with no filling of the SFA or profunda. We [...] was sewn in with running 5-0 Prolene. Dopplerwas used to check signals in the feet and none were found. There was flow into the profunda but no flow into the SFA. The patch was reopened and a Aftab was again passed down the SFA. The back bleeding improved significantly but there was no identifiable thrombus retrieved. Signals in her foot were checked again and there was both an AT and PT signal found. The arteriotomy in the patch was closed with running 6-0 Prolene. Hemostasis was ensured. 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 Stuart Track Fitter(s): Richi Anderson MD Type of anesthesia: Dexmedetomidine and propofol per pump, details in MAR Administered 1% lidocaine orally. Sedation start: 903 Sedation stop: 949 Monitoring: Monitoring consisted of: heart rate, conveyor monitor, continuous pulse oximetry, continuous capnography, frequent [...] Implant Name Type Inv. Item Serial No. Special Education Administrator Lot No. LRB No. Used Action SYNTTHECEL DURA REPAIR [id number] Right 1 Implanted Kamari Mcfarlane MD * Operative - Jazz Marquez MD - 10/20/2022 6:58 PM CDT NAME: Consuelo Darby : 1980 DATE OF OPERATION: 10/20/2022 ATTENDING SURGEON: JAZZ MARQUEZ MD PREOPERATIVE DIAGNOSES: Malignant right MCA infarction POSTOPERATIVE DIAGNOSES: Same PROCEDURES PERFORMED: 1) Right sided fbcyii-pkbjlyy-uujptlaf decompressive sonya-craniectomy for treatment of refractory intracranial [...] temporal squamous bone were made using the Clever Cloud drill. The eduardo holes was undermined with a straight bone curette. After dissecting the dura carefully using a Bolivar elevator then the craniotome B1 bit with a footplate was used to elevate the bone flap for a standard decompressive sonya-craniectomy. The bone flap was elevated using a Lunenburg #1 dissector. The dura was adherent to [...] Implant Name Type Inv. Item Serial No. Special Education Administrator Lot No. LRB No. Used Action Agent Hmst Thrmb Kt Surgiflo 2Ml Agent Hmst Thrmb Kt Surgiflo 2Ml [employer] [id number] Right 1 Implanted SYNTTHECEL DURA REPAIR [id number] Right 1 Implanted [employer] Adhesion Barrier [id number] Right 1 Implanted ATTENDING ATTESTATION: I reviewed the resident's note and agree with the documented findings. I was present for the entireprocedure. Jazz Marquez MD 10/25/2022 5:37 PM * Brief Op Note - Jaime Drew MD - 10/19/2022 10:19 AM CDT IVR Post-Operative/Procedure Progress Note Surgeon: Mitali Walter Track Fitter(s): Isak Monte Pre-Procedure Diagnosis:R MCA M1 occlusion [...] Lynch MD - 10/19/2022 5:42 PM CDT [facility] Emergency Department Emergency Medicine Resident Note [...] Initial Electrocardiogram Rate: 126 Rhythm: sinus, tachy [place]: Normal Intervals: No [place] QRS QT prolongation ST/ T wave: No Christopher/d, no significant ST or T wave abnormalities. No evidence of heart block, arrhythmia, ACS equivalents Impression: sinus tachycardia Imaging: CT ANGIO BRAIN NECK STROKE Final Result PROCEDURE: CT ANGIO BRAIN NECK STROKE, DATE/TIME OF EXAM: 10/19/2022 8:16 AM, LOCATION [facility] INDICATION: Code Stroke ADDITIONAL CLINICAL INFORMATION: [...] DATE/TIME OF EXAM: 10/19/2022 8:04 AM, LOCATION [facility] INDICATION: Code Stroke ADDITIONAL CLINICAL INFORMATION: [...] MD on 10/19/2022 8:15 AM IR [facility]IAL [facility] THROMBECT (Results Pending) CT HEAD NON [...] not screen for Propoxyphene, Meprobamate, Carisoprodol, Trazodone, kkru-qwh-dxozmgw medications and/or volatiles (Acetone, Isopropanol, Methanol or Ethylene Glycol). Ethanol, Salicylate, Acetaminophen, Tricyclic Antidepressants and several therapeutic drugsmay be individually assayed in serum or plasma specimen. Toxicology testing by the [facility] Laboratory is an aid to medical [...] DATE/TIME OF EXAM: 10/19/2022 8:16 AM, LOCATION [facility] INDICATION: Code Stroke ADDITIONAL CLINICAL INFORMATION: [...] DATE/TIME OF EXAM: 10/19/2022 8:04 AM, LOCATION [facility] INDICATION: Code Stroke ADDITIONAL CLINICAL INFORMATION: [...] 10/19/2022 8:11 AM CDT Salo Darby () [phone] * Bharat Oreilly RN - 10/19/2022 8:02 AM CDT First slice * Jean Nam RN - 10/19/2022 7:53 AM CDT Bed: T04 Expected date: Expected time: Means of arrival: Comments: Code stroke @ 726 documented in this encounter Miscellaneous Notes * Clinical References AVS - Hodan Oliveira RN - 10/25/2022 11:31 AM CDT Images from the original note were not included. 26042 Prediabetes You have been diagnosed with prediabetes. [...] being physically active ?? Being ?? Being Chinese ?? Being ?? Being ?? Being ?? [...] blurry vision Last Reviewed Date: 2021 ?? 4369-3899 [employer]. All rights reserved. This information is not intended as a substitute for professional medical care. Always follow your healthcare professional's instructions. * Clinical References AVS - Hodan Oliveira RN - 10/25/2022 11:31 AM CDT 39040 Discharge Instructions for Stroke You have a [...] first appeared. Last Reviewed Date: 2021 ?? 0781-1883 [employer]. All rights reserved. This information is not intended as a substitute for professional medical care. Always follow your healthcare professional's instructions.This information has been modified by your health care provider with permission from the publisher. * Clinical References AVS - Hodan Oliveira RN - 10/25/2022 11:25 AM CDT Images from the original note were not included. 12798 Thrombolytic Therapy for Stroke An ischemic stroke [...] thinners (anticoagulants). Also mention if you take peud-zah-bsyxnmy medicines, herbal medicines, or other supplements. ?? [...] dosages of each, in your wallet. Include eiab-jbd-ggslpkh medicines, vitamins, and supplements. ?? Write a [...] stroke-like symptoms. Last Reviewed Date: 2021 ?? 0261-2691 [employer]. All rights reserved. This information is not intended as a substitute for professional medical care. Always follow your healthcare professional's instructions. This information has been modified by your health care provider with permission from the publisher. * Clinical References AVS - Hodan Oliveira RN - 10/25/2022 11:25 AM CDT 14101 Understanding Mechanical Thrombectomy for Ischemic Stroke Mechanical [...] Chest pain Last Reviewed Date: 2021 ?? 0266-4223 [employer]. All rights reserved. This information is not intended as a substitute for professional medical care. Always follow your healthcare professional's instructions. * Clinical References AVS - Hodan Oliveira RN - 10/25/2022 11:25 AM CDT Images from the original note were not included. 15503 What Is Ischemic Stroke? The brain needs [...] first appeared. Last Reviewed Date: 2021 ?? 3370-1706 [employer]. All rights reserved. This information is not intended as a substitute for professional medical care. Always follow your healthcare professional's instructions. * Coding Query - Shahbaz Bowen MD - 10/23/2022 6:21 PM CDT DOCUMENTATION CLARIFICATION REQUEST TO: Dr. Bowen FROM: Olga Mcintyre RN, CDS Email: [email or web address] Use the F2 function darden to complete [...] OF CARE Routine 11/10/2022 11:28 PM CDT CBC W AUTO DIFFERENTIAL Routine 11/10/2022 2:24 [...] removable percutaneous endoscopic gastrostomy (PEG) tube (HCC) [place] [facility] EGD FLEX TRANSORAL DX 2022 2:35 [...] PM CDT ACT LR - POCT ([facility]) Routine 10/30/2022 1:50 PM CDT BLOOD GAS+COOX+LYTES+METAB ARTERIAL POCT Routine 10/30/2022 1:33 PM CDT ACT LR - POCT ([facility]) Routine 10/30/2022 1:32 PM CDT BLOOD GAS+COOX+LYTES+METAB ARTERIAL POCT Routine 10/30/2022 12:59 PM CDT ACT LR - POCT ([facility]) Routine 10/30/2022 12:57 PM CDT TRANSFUSE RED BLOOD CELL LEUKOREDUCED UNIT(S) STAT 10/30/2022 12:57 PM CDT BLOOD GAS ART+LYTES+METAB+COOX POC NOTIF STAT 10/30/2022 12:50 PM CDT Primary hypertension ACT LR - POCT ([facility]) Routine 10/30/2022 12:26 PM CDT PATHOLOGY TISSUE Routine 10/30/2022 12:1 8 PM CDT Ischemia ACT LR - POCT ([facility]) Routine 10/30/2022 12:16 PM CDT ACT LR - POCT ([facility]) Routine 10/30/2022 12:07 PM CDT PREPARE RBC [...] 6.0 - 8.3 g/dL 023 3:10 AM [facility] Albumin 2.8(L) 3.4 - 5.0 g/dL 11/17/2022 3:10 AM [facility] Bilirubin Total 0.4 0.2 - 1.2 mg/dL 10/2022 3:10 AM [facility] Bilirubin Conjugated 0.1 0.1 - 0.5 mg/dL 11/17/2022 3:10 AM [facility] Bilirubin Unconjugated 0.3 Unconjugated Bilirubin is a calculated value: Reference ranges have not been established. mg/dL 11/17/2022 3:10 AM [facility] Alkaline Phosphatase 94 40 - 150 U/L 11/17/2022 3:10 AM [facility] ALT 257(H) 5 - 55 U/L 11/17/2022 3:10 AM [facility] AST 138(H) 5 - 34 U/L 11/17/2022 3:10 AM [facility] Albumin/Globulin Ratio 0.7(L) 1.1 - 2.3 11/17/2022 3:10 AM [facility] Blood BLOOD SPECIMEN / Unknown Lab Venipuncture / Unknown 11/17/2022 2:02 AM CDT 11/17/2022 2:40 AM CDT Good Antunez MD LAB - CHEMISTRY [facility] BLACKMAN [address] [address], [facility] [phone] * PHOSPHORUS BLOOD (11/17/2022 2:02 AM CDT) Phosphorus 3.6 2.9 - 5.1 mg/dL 11/17/2022 3:10 AM [facility] Blood BLOOD SPECIMEN / Unknown Lab Venipuncture / Unknown 11/17/2022 2:02 AM CDT 11/17/2022 2:40 AM CDT Good Antunez MD LAB - CHEMISTRY [place] BLACKMAN [address] [address], [facility] [phone] * MAGNESIUM BLOOD (11/17/2022 2:02 AM CDT) Pathologist [facility] Magnesium 2.5 1.6 - 2.6 mg/dL 11/17/2022 3:10 AM T [facility] Blood BLOOD SPECIMEN / Unknown Lab Venipuncture / Unknown 11/17/2022 2:02 AM CDT 11/17/2022 2:40 AM CDT Good Antunez MD LAB - CHEMISTRY [facility] BLACKMAN Performing Organization Address [facility]/ZIP Co de Phone Number [address] [address], [facility] [phone] * (ABNORMAL) BASIC METABOLIC PANEL (CALCIUM TOTAL) (11/17/2022 2:02 AM CDT) Pathologist [facility] BUN 14 7 - 26 mg/dL 11/17/2022 3:10 AM [facility] Creatinine 0.62 0.56 - 0.96 mg/dL 11/17/2022 3:10 AM [facility] Sodium 138 136 - 145 mmol/L 11/17/2022 3:10 AM [facility] Potassium 4.0 3.5 - 4.5 mmol/L 11/17/2022 3:10 AM [facility] Chloride 99 98 - 107 mmol/L 11/17/2022 3:10 AM [facility] CO2 27 22 - 29 mmol/L 11/17/2022 3:10 AM [facility] Glucose 125(H) 70 - 115 mg/dL 11/17/2022 3:10 AM [facility] Calcium 8.9 8.4 - 10.2 mg/dL 11/17/2022 3:10 AM [facility] Anion Gap 12 6 - 16 11/17/2022 3:10 AM [facility] BUN/Creatinine Ratio 23 7 - 23 11/17/2022 3:10 AM [facility] Osmolality Calculated 288 270 - 300 mOsm/kg 11/17/2022 3:10 AM [facility] eGFR by CKD-EPI >90 >=90 mL/min/1.7 3 m2 11/17/2022 3:10 AM [facility] Blood BLOOD SPECIMEN / Unknown Lab Venipuncture / Unknown 11/17/2022 2:02 AM CDT 11/17/2022 2:40 AM T Good Antunez MD LAB - CHEMISTRY [facility] Organization Address City/State/ZIP Co de Phone Number [facility] [address] [place] [address], [facility] [phone] * (ABNORMAL) CBC W AUTO DIFFERENTIAL (11/17/2022 2:02 AM CDT) WBC 9.4 3.5 - 10.5 10? 3 /uL 11/17/2022 2:58 AM [facility] RBC 3.57(L) 3.80 - 5.20 10? 6 /uL 11/17/2022 2:58 AM [facility] Hemoglobin 10.4(L) 12.0 - 15.6 g/dL 11/17/2022 2:58 AM [facility] Hematocrit 33.4(L) 35.0 - 45.0 % 11/17/2022 2:58 AM [facility] MCV 93.6 80.7 - 98.3 fL 11/17/2022 2:58 AM [facility] MCH 29.1 26.7 - 34.0 pg 11/17/2022 2:58 AM [facility] MCHC 31.1 30.8 - 35.9 g/dL 11/17/2022 2:58 AM [facility] RDW-SD 52.4(H) 36.0 - 50.0 fL 11/17/2022 2:58 AM [facility] RDW-CV 15.9(H) 11.2 - 14.8 % 11/17/2022 2:58 AM [facility] Platelet Count 505(H) 150 - 400 10? 3 /uL 11/17/2022 2:58 AM [facility] MPV 11.0 9.4 - 12.9 fL 11/17/2022 2:58 AM [facility] nRBC Absolute 0.00 0 10? 3 /uL 11/17/2022 2:58 AM [facility] nRBC Auto 0.0 0 /100 WBC 11/17/2022 2:58 AM [facility] Neutrophils % 48.8 35.0 - 70.0 % 11/17/2022 2:58 AM [facility] Lymphocytes % 36.2 20.0 - 43.0 % 11/17/2022 2:58 AM [facility] Monocytes % 10.2 5.0 - 13.0 % 11/17/2022 2:58 AM [facility] Eosinophils % 3.1 0.0 - 6.0 % 11/17/2022 2:58 AM [facility] Basophil % 0.4 0.0 - 2.0 % 11/17/2022 2:58 AM [facility] Neutrophils Absolute 4.59 1.60 - 7.00 10? 3 /uL 11/17/2022 2:58 AM [facility] Lymphocyte Absolute 3.41 1.10 - 3.90 10? 3 /uL 11/17/2022 2:58 AM [facility] Monocytes Absolute 0.96 0.26 - 1.07 10? 3 /uL 11/17/2022 2:58 AM [facility] Eosinophils Absolute 0.29 0.00 - 0.47 10? 3 /uL 11/17/2022 2:58 AM [facility] Basophils Absolute 0.04 0.00 - 0.08 10? 3 /uL 11/17/2022 2:58 AM [facility] Immature Granulocytes % 1.3(H) 0.0 - 1.0 % 11/17/2022 2:58 AM [facility] Immature Granulocytes Absolute 0.12 11/17/2022 2:58 AM T [facility] Blood BLOOD SPECIMEN / Unknown Lab Venipuncture / Unknown 11/17/2022 2:02 AM CDT 11/17/2022 2:39 AM CDT Good Antunez MD LAB - HEMATOLOGY ORD ERABLES Performing Organization Address [facility]/ZIP Co de Phone Number [address] [address], [facility] [phone] * PTT [facility] (11/17/2022 2:02 AM CDT) APTT 34.4 23.0 - 38.4 Seconds 11/17/2022 3:05 AM [facility] Comment:Suggested therapeuti c range for full dose I.V. unfractionated heparin therapy for venous thromboembolism is 71 to 109 seconds. Blood BLOOD SPECIMEN / Unknown Lab Venipuncture / Unknown 11/17/2022 2:02 AM CDT 11/17/2022 2:39 AM CDT Good Antunez MD LAB - COAGULATION OR DERABLES Performing Organization Address [facility] Co de Phone Number [address] [address], [facility] [phone] * PT-INR [facility] (11/17/2022 2:02 AM CDT) PT 14.4 12.1 - 14.8 Seconds 11/17/2022 3:05 AM [facility] INR 1.1 See Comment 11/17/2022 3:05 AM [facility] Comment:The suggested therap eutic range for standard coumadin (warfarin) therapy is an INR of 2.0-3.0. For high-risk patients (Mechanical Mitral Valve Prosthesis, etc.), the suggested prophylactic therapeutic range is an INR of 2.5-3.5. Blood BLOOD SPECIMEN / Unknown Lab Venipuncture / Unknown 11/17/2022 2:02 AM CDT 11/17/2022 2:39 AM CDT Emir Vail MD LAB - COAGULATION OR DERABLES [id number] [place] [address], [facility] [phone] * CT ABDOMEN PELVIS W CONTRAST (11/16/2022 [...] > Dictated by Abdifatah Jean MD (residential program director). I, Alexx Lopez have personally reviewed and interpreted this examination/study. > Interpreting Provider: Alexx Loepz on 11/17/2022 11:31 AM Narrative 11/17/2022 11:31 AM CDT PROCEDURE: ??CT ABDOMEN PELVIS W CONTRAST, DATE/TIME OF EXAM: ??11/16/2022 4:32 PM, LOCATION ??[facility] INDICATION: I33.0: Aortic valve vegetation ADDITIONAL [...] CONTRAST, DATE/TIME OF EXAM: :32 PM, LOCATION [facility] INDICATION: I33.0: Aortic valve vegetation ADDITIONAL [...] > Dictated by Abdifatah Jean MD (residential program director). I, Alexx Lopez have personally reviewed and interpreted this examination/study. > Interpreting Provider: Alexx Lopez on 11/17/2022 11:31 AM Good Antunez MD CT ORDERABLES * (ABNORMAL) DIFFERENTIAL MANUAL (11/16/2022 2:17 AM CDT) WBC (corrected for NRBC) 7.3 10? 3 /uL 11/16/2022 4:29 AM [facility] Total Cell Count 100 11/17/19 23 4:29 AM [facility] Neutrophils Absolute Manual 4.60 1.60 - 7.00 10? 3 /uL 11/16/2022 4:29 AM [facility] Comment:(BANDS+SEGS) x WBC = NEUT # (ANC) Lymphocyte Absolute Manual 1.75 1.10 - 3.90 10? 3 /uL 11/16/2022 4:29 AM [facility] Monocytes Absolute Manual 0.80 0.26 - 1.07 10? 3 /uL 11/16/2022 4:29 AM [facility] Eosinophils Absolute Manual 0.15 0.00 - 0.47 10? 3 /uL 11/16/2022 4:29 AM [facility] Band % Manual 1 0 - 10 % 11/16/2022 4:29 AM [facility] Neutrophil % Manual 62 35 - 70 % 11/16/2022 4:29 AM [facility] Lymphocyte % Manual 24 20 - 43 % 11/16/2022 4:29 AM [facility] Monocytes % Manual 11 5 - 13 % 11/16/2022 4:29 AM [facility] Eosinophils % Manual 2 0 - 6 % 11/16/2022 4:29 AM [facility] Platelet Estimate Adequate Adequate 11/16/2022 4:29 AM [facility] Anisocytosis Occasional( A) None 11/16/2022 4:29 AM [facility] Polychromasia Few(A) None 11/16/2022 4:29 AM [facility] Ovalocytes Occasional( A) None 11/16/2022 4:29 AM [facility] Eduardo Cells Occasional( A) None 11/16/2022 4:29 AM [facility] Smudge Cells Rare(A) None 11/16/2022 4:29 AM [facility] Blood BLOOD SPECIMEN / Unknown Lab Venipuncture / Unknown 11/16/2022 2:17 AM CDT 11/16/2022 3:01 AM CDT Good Antunez MD LAB - HEMATOLOGY ORD ERABLES [address] [address], [place] [phone] * PHOSPHORUS BLOOD (11/16/2022 2:17 AM CDT) Phosphorus 3.5 2.9 - 5.1 mg/dL 11/16/2022 3:30 AM T [facility] Blood BLOOD SPECIMEN / Unknown Lab Venipuncture / Unknown 11/16/2022 2:17 AM CDT 11/16/2022 3:02 AM CDT Good Antunez MD LAB - CHEMISTRY ORDDanyelle BLACKMAN [address] [address], [place] [phone] * MAGNESIUM BLOOD (11/16/2022 2:17 AM CDT) Magnesium 2.4 1.6 - 2.6 mg/dL 11/16/2022 3:30 AM [facility] Blood BLOOD SPECIMEN / Unknown Lab Venipuncture / Unknown 11/16/2022 2:17 AM CDT 11/16/2022 3:02 AM CDT Good Antunez MD LAB - CHEMISTRY [place] BLACKMAN [facility] Organization Address City/State/ZIP Co de Phone Number [facility] [address] [place] [address], [facility] [phone] * (ABNORMAL) BASIC METABOLIC PANEL (CALCIUM TOTAL) (11/16/2022 2:17 AM CDT) BUN 13 7 - 26 mg/dL 11/16/2022 3:30 AM [facility] Creatinine 0.57 0.56 - 0.96 mg/dL 11/16/2022 3:30 AM [facility] Sodium 139 136 - 145 mmol/L 11/16/2022 3:30 AM [facility] Potassium 4.0 3.5 - 4.5 mmol/L 11/16/2022 3:30 AM [facility] Chloride 104 98 - 107 mmol/L 11/16/2022 3:30 AM [facility] CO2 27 22 - 29 mmol/L 11/16/2022 3:30 AM [facility] Glucose 129(H) 70 - 115 mg/dL 11/16/2022 3:30 AM [facility] Calcium 8.8 8.4 - 10.2 mg/dL 11/16/2022 3:30 AM [facility] Anion Gap 12 8 - 18 11/16/2022 3:30 AM [facility] BUN/Creatinine Ratio 23 7 - 23 11/16/2022 3:30 AM [facility] Osmolality Calculated 290 270 - 300 mOsm/kg 11/16/2022 3:30 AM [facility] eGFR by CKD-EPI >90 >=90 mL/min/1.7 3 m2 11/16/2022 3:30 AM [facility] Blood BLOOD SPECIMEN / Unknown Lab Venipuncture / Unknown 11/16/2022 2:17 AM CDT 11/16/2022 3:02 AM CDT Good Antunez MD LAB - CHEMISTRY [place]NA BLACKMAN [facility] Organization Address City/State/ZIP Co de Phone Number [facility] [address] [place] [address], [facility] [phone] * (ABNORMAL) CBC W AUTO DIFFERENTIAL (11/16/2022 2:17 AM CDT) WBC 7.3 3.5 - 10.5 10? 3 /uL 11/16/2022 3:12 AM [facility] RBC 3.49(L) 3.80 - 5.20 10? 6 /uL 11/16/2022 3:12 AM [facility] Hemoglobin 10.1(L) 12.0 - 15.6 g/dL 11/16/2022 3:12 AM [facility] Hematocrit 32.6(L) 35.0 - 45.0 % 11/16/2022 3:12 AM [facility] MCV 93.4 80.7 - 98.3 fL 11/16/2022 3:12 AM [facility] MCH 28.9 26.7 - 34.0 pg 11/16/2022 3:12 AM [facility] MCHC 31.0 30.8 - 35.9 g/dL 11/16/2022 3:12 AM [facility] RDW-SD 51.5(H) 36.0 - 50.0 fL 11/16/2022 3:12 AM [facility] RDW-CV 15.6(H) 11.2 - 14.8 % 11/16/2022 3:12 AM [facility] Platelet Count 446(H) 150 - 400 10? 3 /uL 11/16/2022 3:12 AM [facility] MPV 10.9 9.4 - 12.9 fL 11/16/2022 3:12 AM CDT [facility] nRBC Absolute 0.00 0 10? 3 /uL 11/16/2022 3:12 AM CDT [facility] nRBC Auto 0.0 0 /100 WBC 11/16/2022 3:12 AM CDT [facility] Blood BLOOD SPECIMEN / Unknown Lab Venipuncture / Unknown 11/16/2022 2:17 AM CDT 11/16/2022 3:01 AM CDT Good Antunez MD LAB - HEMATOLOGY ORD ERABLES [facility] [address] [place] [address], [facility] [phone] * PTT [facility] (11/16/2022 2:17 AM CDT) APTT 26.0 23.0 - 38.4 Seconds 11/16/2022 3:23 AM T [facility] Comment:Suggested therapeuti c range for full dose I.V. unfractionated heparin therapy for venous thromboembolism is 71 to 109 seconds. Blood BLOOD SPECIMEN / Unknown Lab Venipuncture / Unknown 11/16/2022 2:17 AM CDT 11/16/2022 3:02 AM CDT Good Antunez MD LAB - COAGULATION OR DERABLES Performing Organization Address City/[facility]/ZIP Co de Phone Number [facility] [address] [place] [address], [place] [phone] * PT-INR [facility] (11/16/2022 2:17 AM CDT) PT 13.9 12.1 - 14.8 Seconds 11/16/2022 3:23 AM CDT [facility] INR 1.1 See Comment 11/16/2022 3:23 AM T [facility] Comment:The suggested therap eutic range for standard coumadin (warfarin) therapy is an INR of 2.0-3.0. For high-risk patients (Mechanical Mitral Valve Prosthesis, etc.), the suggested prophylactic therapeutic range is an INR of 2.5-3.5. Blood BLOOD SPECIMEN / Unknown Lab Venipuncture / Unknown 11/16/2022 2:17 AM CDT 11/16/2022 3:02 AM CDT Emir Vail MD LAB - COAGULATION OR DERABLES Performing Organization Address City/[facility]/ZIP Co de Phone Number [address] [address], [facility] [phone] * GRAM STAIN (LAB ORDERED) (11/15/2022 12:27 PM CDT) Gram Stain No polymorphonuclear cells 11/15/2022 4:45 PM CDT [facility] Gram Stain No organisms seen 023 4:45 PM CDT [facility] Microbiology Collection / Unknown 11/15/2022 12:27 PM CDT 11/15/2022 12:27 PM CDT Good Antunez MD LAB - MICROBIOLOGY O RDERABLES Performing Organization Address City/[facility]/ZIP Co de Phone Number [address] [address], [facility] [phone] * CULTURE CSF+GRAM STAIN (11/15/2022 12:25 PM CDT) Culture No growth ROSELIA 11/22/2022 4:18 AM CDT [facility] MICROBIOLOGY Gram Stain No polymorphonuclear cells 11/22/2022 4:18 AM CDT [facility] MICROBIOLOG[facility] Gram Stain No organisms seen 023 4:18 AM CDT [facility] MICRO[facility] Cerebral spinal fluid CEREBROSPINAL FLUID SPECIMEN / Unknown Collection / Unknown 11/15/2022 12:25 PM CDT 11/15/2022 12:25 PM CDT Good Antunez MD LAB - MICROBIOLOGY O RDERABLES Performing Organization Address City/[facility]/ZIP Co de Phone Number [facility] MICROBIOLOG[facility] [address] [place] [address], [facility] [phone] * HOLD SPECIMEN CSF (11/15/2022 12:25 PM CDT) Specimen Hold 11/15/2022 1:32 PM CDT [facility] Comment:The Hold Sample has been received in the lab and will be held for 30 days. Cerebral spinal fluid CEREBROSPINAL FLUID SPECIMEN / Unknown Collection / Unknown 11/15/2022 12:25 PM CDT 11/15/2022 12:25 PM CDT Good Antunez MD LAB - BODY FLUID ORD ERABLES [facility] [address] [place] [address], [facility] [phone] * MENINGITIS ENCEPHALITIS PCR PANEL CSF (11/15/2022 12:25 PM CDT) Listeria monocytogenes PCR Not Detected 11/17/2022 7:00 AM CDT [facility] ([facility]) Escherichia coli K1 PCR Not Detected 11/17/2022 7:00 AM CDT [facility] ([facility]) Haemophilus influenzae PCR Not Detected 11/17/2022 7:00 AM CDT [facility] ([facility]) Neisseria meningitidis PCR Not Detected 11/17/2022 7:00 AM CDT [facility] ([facility]) Streptococcus agalactiae PCR Not Detected 11/17/2022 7:00 AM CDT [facility] ([facility]) Streptococcus pneumoniae PCR Not Detected 11/17/2022 7:00 AM CDT [facility] ([facility]) Cytomegalovirus PCR Not Detected 11/17/2022 7:00 AM CDT [facility] ([facility]) Enterovirus PCR Not Detected 11/17/2022 7:00 AM CDT [facility] ([facility]) Herpes Simplex Virus 1 PCR Not Detected 11/17/2022 7:00 AM CDT [facility] ([facility]) Herpes Simplex Virus 2 PCR Not Detected 11/17/2022 7:00 AM CDT [facility] ([facility]) Human Herpesvirus 6 PCR Not Detected 11/17/2022 7:00 AM CDT [facility] ([facility]) Human parechovirus PCR Not Detected 11/17/2022 7:00 AM CDT [facility] ([facility]) Varicella zoster virus PCR Not Detected 11/17/2022 7:00 AM CDT [facility] ([facility]) Cryptococcus neoformans/gattii PCR Not Detected 11/17/2022 7:00 AM CDT [facility] ([facility]) Comment: INTERPRETIVE INFORMATION: Meningitis Encephalitis Panel by [...] factors and other laboratory information. Performed By: [place] [address] Bilingual Receptionist: Boo Bond MD, PhD CLIA Number: [id number] Cerebral spinal fluid CEREBROSPINAL FLUID SPECIMEN / Unknown Collection / Unknown 11/15/2022 12:25 PM CDT 11/15/2022 12:25 PM CDT Good Antunez MD LAB - MICROBIOLOGY O RDERABLES [facility] [address] [place] [address], [facility] * CELL COUNT W DIFFERENTIAL CSF (11/15/2022 12:25 PM CDT) Color Fluid Colorless Colorless, Straw 11/15/2022 12:42 PM CDT [facility] Clarity Fluid Clear Clear 11/15/2022 12:42 PM CDT [facility] Volume Fluid 3.5 mL 11/15/2022 12:42 PM CDT [facility] WBC Calculation Fluid 1 0 - 5 x10e6/L 11/15/2022 12:42 PM T [facility] RBC Calculation 4 x10e6/L 12:42 PM CDT [facility] Xanthochromia Fluid Negative Negative 11/15/2022 12:42 PM CDT [facility] Differential 11/15/2022 12:42 PM CDT [facility] Comment:No differential perf ormed per procedure. Cerebral spinal fluid CEREBROSPINAL FLUID SPECIMEN / Unknown Collection / Unknown 11/15/2022 12:25 PM CDT 11/15/2022 12:25 PM CDT Narrative [facility] - 11/15/2022 12:42 PM CDT No reference ranges established for body fluid cell counts. The reference ranges provided are derived from published literature. The test results must be integrated into the clinical context for interpretation. Good Antunez MD LAB - BODY FLUID ORD ERABLES [address] [address], [place] [phone] * PROTEIN CSF (11/15/2022 12:25 PM CDT) Protein CSF 34 15 - 45 mg/dL 11/15/2022 1:15 PM CDT [facility] Cerebral spinal fluid CEREBROSPINAL FLUID SPECIMEN / Unknown Collection / Unknown 11/15/2022 12:25 PM CDT 11/15/2022 12:25 PM CDT Good Antunez MD LAB - BODY FLUID ORD ERABLES Performing Organization Address City/[facility]/ZIP Co de Phone Number [address] [address], [place] [phone] * GLUCOSE CSF (11/15/2022 12:25 PM CDT) Glucose CSF 57 40 - 70 mg/dL 11/15/2022 1:15 PM CDT [facility] Cerebral spinal fluid CEREBROSPINAL FLUID SPECIMEN / Unknown Collection / Unknown 11/15/2022 12:25 PM CDT 11/15/2022 12:25 PM CDT Good Antunez MD LAB - BODY FLUID ORD ERABLES [address] [address], [place] [phone] * CULTURE FUNGUS OTHER+FUNGUS SMEAR (11/15/2022 12:17 PM CDT) Culture No fungus isolated ROSELIA 12/11/2022 7:18 AM CDT [facility] MICROBIOLOG[facility] Fungus Stain No yeast or hyphae seen 12/11/2022 7:18 AM CDT [facility] Microbiology CEREBROSPINAL FLUID SPECIMEN / Unknown Collection / Unknown 11/15/2022 12:17 PM CDT 11/15/2022 12:29 PM CDT Good Antunez MD LAB - MICROBIOLOGY O RDERABLES [facility]CRO[facility] [address] [place] [address], [facility] [phone] * CULTURE AFB+SMEAR (11/15/2022 12:17 PM CDT) Culture No acid-fast bacillus isolated 12/25/2022 7:40 AM CDT [facility] MICRO[facility] AFB Smear No acid-fast bacilli seen 12/25/2022 7:40 AM CDT [facility] Microbiology CEREBROSPINAL FLUID SPECIMEN / Unknown Collection / Unknown 11/15/2022 12:17 PM CDT 11/15/2022 12:29 PM CDT Good Antunez MD LAB - MICROBIOLOGY O RDERABLES [facility] MICRO[facility] [address] [place] [address], [facility] [phone] * FL LUMBAR PUNCTURE (11/15/2022 12:10 PM CDT) Anatomical Region Laterality Modality Spine Radiographic Irene ging 11/15/2022 1:13 PM CDT Impressions 11/15/2022 2:16 PM CDT IMPRESSION: 1.Successful lumbar puncture under fluoroscopic guidance at L3-L4. > Dictated by Royer Stovall MD (residential program director). I, Oriana Suarez MD have personally reviewed and interpreted this examination/study. > Interpreting Provider: Oriana Suarez MD on 11/15/2022 2:16 PM Narrative 11/15/2022 2:16 PM CDT PROCEDURE: ??FL LUMBAR PUNCTURE, DATE/TIME OF EXAM: ??11/15/2022 1:24 PM, LOCATION ??[facility] INDICATION: R50.9: Fever, unspecified fever cause [...] DATE/TIME OF EXAM: 11/15/2022 1:24 PM, LOCATION [facility] INDICATION: R50.9: Fever, unspecified fever cause [...] > Dictated by Royer Stovall MD (residential program director). I, Oriana Suarez MD have personally reviewed and interpreted this examination/study. > Interpreting Provider: Oriana Suarez MD on 11/15/2022 2:16 PM Good Antunez MD FLUOROSCOPY ORDERABL ES * (ABNORMAL) EOSINOPHIL URINE SMEAR (11/15/2022 9:57 AM CDT) Pathologist [facility] Eosin Stain Urine Rare(A) None 11/15/2022 12:46 PM CDT [facility] Urine URINE SPECIMEN OBTAINED BY CLEAN CATCH PROCEDURE / Unknown Collection / Unknown 11/15/2022 9:57 AM CDT 11/15/2022 10:00 AM CDT Good Antunez MD LAB - URINE CHEMISTR Y ORDERABLES [facility] [address] [place] [address], [facility] [phone] * (ABNORMAL) HEPATIC FUNCTION PANEL (11/15/2022 2:12 AM CDT) Protein Total 6.5 6.0 - 8.3 g/dL 023 3:40 AM [facility] Albumin 2.5(L) 3.4 - 5.0 g/dL 11/15/2022 3:40 AM [facility] Bilirubin Total 0.3 0.2 - 1.2 mg/dL 08/2022 3:40 AM [facility] Bilirubin Conjugated 0.1 0.1 - 0.5 mg/dL 11/15/2022 3:40 AM [facility] Bilirubin Unconjugated 0.2 Unconjugated Bilirubin is a calculated value: Reference ranges have not been established. mg/dL 11/15/2022 3:40 AM [facility] Alkaline Phosphatase 80 40 - 150 U/L 11/15/2022 3:40 AM [facility] ALT 237(H) 5 - 55 U/L 11/15/2022 3:40 AM [facility] AST 104(H) 5 - 34 U/L 11/15/2022 3:40 AM [facility] Albumin/Globulin Ratio 0.6(L) 1.1 - 2.3 11/15/2022 3:40 AM [facility] Blood BLOOD SPECIMEN / Unknown Lab Venipuncture / Unknown 11/15/2022 2:12 AM CDT 11/15/2022 3:07 AM CDT Good Antunez MD LAB - CHEMISTRY [facility] Organization Address [facility]/State/[facility] Co de Phone Number [address] [address] [phone] * PHOSPHORUS BLOOD (11/15/2022 2:12 AM CDT) Phosphorus 3.0 2.9 - 5.1 mg/dL 11/15/2022 3:38 AM [facility] Blood BLOOD SPECIMEN / Unknown Lab Venipuncture / Unknown 11/15/2022 2:12 AM CDT 11/15/2022 3:07 AM CDT Good Antunez MD LAB - CHEMISTRY B[place] BLACKMAN [address] [address], [facility] [phone] * MAGNESIUM BLOOD (11/15/2022 2:12 AM CDT) Magnesium 2.0 1.6 - 2.6 mg/dL 11/15/2022 3:38 AM T [facility] Blood BLOOD SPECIMEN / Unknown Lab Venipuncture / Unknown 11/15/2022 2:12 AM CDT 11/15/2022 3:07 AM CDT Good Antunez MD LAB - CHEMISTRY B[place]NA BLACKMAN Performing Organization Address [facility]/ZIP Co de Phone Number [address] [address], [facility] [phone] * (ABNORMAL) BASIC METABOLIC PANEL (CALCIUM TOTAL) (11/15/2022 2:12 AM CDT) BUN 12 7 - 26 mg/dL 11/15/2022 3:38 AM [facility] Creatinine 0.50(L) 0.56 - 0.96 mg/dL 11/15/2022 3:38 AM [facility] Sodium 137 136 - 145 mmol/L 11/15/2022 3:38 AM [facility] Potassium 4.0 3.5 - 4.5 mmol/L 11/15/2022 3:38 AM [facility] Chloride 103 98 - 107 mmol/L 11/15/2022 3:38 AM [facility] CO2 26 22 - 29 mmol/L 11/15/2022 3:38 AM [facility] Glucose 115 70 - 115 mg/dL 11/15/2022 3:38 AM [facility] Calcium 8.6 8.4 - 10.2 mg/dL 11/15/2022 3:38 AM [facility] Anion Gap 12 8 - 18 11/15/2022 3:38 AM [facility] BUN/Creatinine Ratio 24(H) 7 - 23 11/15/2022 3:38 AM [facility] Osmolality Calculated 285 270 - 300 mOsm/kg 11/15/2022 3:38 AM [facility] eGFR by CKD-EPI >90 >=90 mL/min/1.7 3 m2 11/15/2022 3:38 AM [facility] Blood BLOOD SPECIMEN / Unknown Lab Venipuncture / Unknown 11/15/2022 2:12 AM CDT 11/15/2022 3:07 AM CDT Good Antunez MD LAB - CHEMISTRY [place] BLACKMAN [facility] Organization Address City/State/ZIP Co de Phone Number [facility] [address] [place] [address], [facility] [phone] * (ABNORMAL) CBC W AUTO DIFFERENTIAL (11/15/2022 2:12 AM CDT) WBC 5.5 3.5 - 10.5 10? 3 /uL 11/15/2022 3:13 AM [facility] RBC 3.51(L) 3.80 - 5.20 10? 6 /uL 11/15/2022 3:13 AM [facility] Hemoglobin 10.0(L) 12.0 - 15.6 g/dL 11/15/2022 3:13 AM [facility] Hematocrit 32.6(L) 35.0 - 45.0 % 11/15/2022 3:13 AM [facility] MCV 92.9 80.7 - 98.3 fL 11/15/2022 3:13 AM [facility] MCH 28.5 26.7 - 34.0 pg 11/15/2022 3:13 AM [facility] MCHC 30.7(L) 30.8 - 35.9 g/dL 11/15/2022 3:13 AM [facility] RDW-SD 50.4(H) 36.0 - 50.0 fL 11/15/2022 3:13 AM [facility] RDW-CV 15.2(H) 11.2 - 14.8 % 11/15/2022 3:13 AM [facility] Platelet Count 404(H) 150 - 400 10? 3 /uL 11/15/2022 3:13 AM [facility] MPV 11.1 9.4 - 12.9 fL 11/15/2022 3:13 AM [facility] nRBC Absolute 0.00 0 10? 3 /uL 11/15/2022 3:13 AM [facility] nRBC Auto 0.0 0 /100 WBC 11/15/2022 3:13 AM [facility] Neutrophils % 44.1 35.0 - 70.0 % 11/15/2022 3:13 AM [facility] Lymphocytes % 35.4 20.0 - 43.0 % 11/15/2022 3:13 AM [facility] Monocytes % 8.9 5.0 - 13.0 % 11/15/2022 3:13 AM [facility] Eosinophils % 10.3(H) 0.0 - 6.0 % 11/15/2022 3:13 AM [facility] Basophil % 0.4 0.0 - 2.0 % 11/15/2022 3:13 AM [facility] Neutrophils Absolute 2.43 1.60 - 7.00 10? 3 /uL 11/15/2022 3:13 AM [facility] Lymphocyte Absolute 1.95 1.10 - 3.90 10? 3 /uL 11/15/2022 3:13 AM [facility] Monocytes Absolute 0.49 0.26 - 1.07 10? 3 /uL 11/15/2022 3:13 AM [facility] Eosinophils Absolute 0.57(H) 0.00 - 0.47 10? 3 /uL 11/15/2022 3:13 AM [facility] Basophils Absolute 0.02 0.00 - 0.08 10? 3 /uL 11/15/2022 3:13 AM [facility] Immature Granulocytes % 0.9 0.0 - 1.0 % 11/15/2022 3:13 AM [facility] Immature Granulocytes Absolute 0.05 11/15/2022 3:13 AM [facility] Blood BLOOD SPECIMEN / Unknown Lab Venipuncture / Unknown 11/15/2022 2:12 AM CDT 11/15/2022 3:07 AM CDT Good Antunez MD LAB - HEMATOLOGY ORD ERABLES Performing Organization Address [facility]/ZIP Co de Phone Number [address] [address], [facility] [phone] * PTT [facility] (11/15/2022 2:12 AM CDT) APTT 28.2 23.0 - 38.4 Seconds 11/15/2022 3:34 AM CDT [facility] Comment:Suggested therapeuti c range for full dose I.V. unfractionated heparin therapy for venous thromboembolism is 71 to 109 seconds. Blood BLOOD SPECIMEN / Unknown Lab Venipuncture / Unknown 11/15/2022 2:12 AM CDT 11/15/2022 3:08 AM CDT Good Antunez MD LAB - COAGULATION OR DERABLES Performing Organization Address [facility] de Phone Number [address] [address], [facility] [phone] * PT-INR [facility] (11/15/2022 2:12 AM CDT) PT 14.3 12.1 - 14.8 Seconds 11/15/2022 3:34 AM CDT [facility] INR 1.1 See Comment 11/15/2022 3:34 AM CDT [facility] Comment:The suggested therap eutic range for standard coumadin (warfarin) therapy is an INR of 2.0-3.0. For high-risk patients (Mechanical Mitral Valve Prosthesis, etc.), the suggested prophylactic therapeutic range is an INR of 2.5-3.5. Blood BLOOD SPECIMEN / Unknown Lab Venipuncture / Unknown 11/15/2022 2:12 AM CDT 11/15/2022 3:08 AM CDT Emir Vail MD LAB - COAGULATION OR DERABLES Performing Organization Address [facility]/ZIP Co de Phone Number [facility] [address] [place] [address], [facility] [phone] * US ABDOMEN LTD W COMP DOPPLER (11/14/2022 9:24 AM CDT) Anatomical Region Laterality Modality Abdomen Ultrasound 11/14/2022 9:18 AM CDT Impressions 11/14/2022 9:54 AM CDT IMPRESSION: 1.No discrete hepatic lesion or intrahepatic biliary ductal dilatation. 2.Patent hepatic vasculature. Borderline low velocity the main portal vein measuring 18 cm/s. 3.Status post cholecystectomy. > Dictated by Miranda Bowen MD (residential program director). > Dictated by Miranda Bowen (Sheet Combining Operator) 11/14/2022 9:18 AM IHEATHER MD have personally [...] > Dictated by Miranda Bowen MD (residential program director). > Dictated by Miranda Bowen (Sheet Combining Operator) 11/14/2022 9:18 AM IHEATHER MD have personally reviewed and interpreted this examination/study. > Interpreting Provider: HEATHER FREGOSO MD on 11/14/2022 9:54 AM Good Antunez MD US ORDERABLES * (ABNORMAL) HEPATIC FUNCTION PANEL (11/14/2022 2:39 AM CDT) Protein Total 6.5 6.0 - 8.3 g/dL 023 3:57 AM [facility] Albumin 2.4(L) 3.4 - 5.0 g/dL 11/14/2022 3:57 AM [facility] Bilirubin Total 0.3 0.2 - 1.2 mg/dL 07/2022 3:57 AM [facility] Bilirubin Conjugated 0.1 0.1 - 0.5 mg/dL 11/14/2022 3:57 AM [facility] Bilirubin Unconjugated 0.2 Unconjugated Bilirubin is a calculated value: Reference ranges have not been established. mg/dL 11/14/2022 3:57 AM [facility] Alkaline Phosphatase 78 40 - 150 U/L 11/14/2022 3:57 AM [facility] ALT 278(H) 5 - 55 U/L 11/14/2022 3:57 AM [facility] AST 158(H) 5 - 34 U/L 11/14/2022 3:57 AM [facility] Albumin/Globulin Ratio 0.6(L) 1.1 - 2.3 11/14/2022 3:57 AM [facility] Blood BLOOD SPECIMEN / Unknown Lab Venipuncture / Unknown 11/14/2022 2:39 AM CDT 11/14/2022 3:16 AM CDT Good Antunez MD LAB - CHEMISTRY BIBIANA BLACKMAN Performing Organization Address City/[facility] de Phone Number [address] [address], [facility] [phone] * PHOSPHORUS BLOOD (11/14/2022 2:39 AM CDT) Phosphorus 3.5 2.9 - 5.1 mg/dL 11/14/2022 3:54 AM T [facility] Blood BLOOD SPECIMEN / Unknown Lab Venipuncture / Unknown 11/14/2022 2:39 AM CDT 11/14/2022 3:16 AM CDT Good Antunez MD LAB - CHEMISTRY BIB[place]NA BLACKMAN [address] [address], [facility] [phone] * MAGNESIUM BLOOD (11/14/2022 2:39 AM CDT) [facility] Magnesium 2.0 1.6 - 2.6 mg/dL 11/14/2022 3:54 AM [facility] Blood BLOOD SPECIMEN / Unknown Lab Venipuncture / Unknown 11/14/2022 2:39 AM CDT 11/14/2022 3:16 AM CDT Good Antunez MD LAB - CHEMISTRY BIB[place]NA BLACKMAN Performing Organization Address City/[facility]/ZIP Co de Phone Number [address] [address], [facility] [phone] * (ABNORMAL) BASIC METABOLIC PANEL (CALCIUM TOTAL) (11/14/2022 2:39 AM CDT) [facility] BUN 11 7 - 26 mg/dL 11/14/2022 3:54 AM [facility] Creatinine 0.51(L) 0.56 - 0.96 mg/dL 11/14/2022 3:54 AM [facility] Sodium 140 136 - 145 mmol/L 11/14/2022 3:54 AM [facility] Potassium 3.9 3.5 - 4.5 mmol/L 11/14/2022 3:54 AM [facility] Chloride 104 98 - 107 mmol/L 11/14/2022 3:54 AM [facility] CO2 25 22 - 29 mmol/L 11/14/2022 3:54 AM [facility] Glucose 109 70 - 115 mg/dL 11/14/2022 3:54 AM [facility] Calcium 8.6 8.4 - 10.2 mg/dL 11/14/2022 3:54 AM [facility] Anion Gap 15 8 - 18 11/14/2022 3:54 AM [facility] BUN/Creatinine Ratio 22 7 - 23 11/14/2022 3:54 AM [facility] Osmolality Calculated 290 270 - 300 mOsm/kg 11/14/2022 3:54 AM [facility] eGFR by CKD-EPI >90 >=90 mL/min/1.7 3 m2 11/14/2022 3:54 AM [facility] Blood BLOOD SPECIMEN / Unknown Lab Venipuncture / Unknown 11/14/2022 2:39 AM CDT 11/14/2022 3:16 AM CDT Good Antunez MD LAB - CHEMISTRY BIBIANA BLACKMAN [facility] Organization Address City/State/ZIP Co de Phone Number [facility] [address] [place] [address], [facility] [phone] * (ABNORMAL) CBC W AUTO DIFFERENTIAL (11/14/2022 2:39 AM CDT) WBC 4.7 3.5 - 10.5 10? 3 /uL 11/14/2022 3:43 AM [facility] RBC 3.47(L) 3.80 - 5.20 10? 6 /uL 11/14/2022 3:43 AM [facility] Hemoglobin 9.9(L) 12.0 - 15.6 g/dL 11/14/2022 3:43 AM [facility] Hematocrit 32.8(L) 35.0 - 45.0 % 11/14/2022 3:43 AM [facility] MCV 94.5 80.7 - 98.3 fL 11/14/2022 3:43 AM [facility] MCH 28.5 26.7 - 34.0 pg 11/14/2022 3:43 AM [facility] MCHC 30.2(L) 30.8 - 35.9 g/dL 11/14/2022 3:43 AM [facility] RDW-SD 51.5(H) 36.0 - 50.0 fL 11/14/2022 3:43 AM [facility] RDW-CV 15.0(H) 11.2 - 14.8 % 11/14/2022 3:43 AM [facility] Platelet Count 364 150 - 400 10? 3 /uL 11/14/2022 3:43 AM [facility] MPV 11.2 9.4 - 12.9 fL 11/14/2022 3:43 AM [facility] nRBC Absolute 0.00 0 10? 3 /uL 11/14/2022 3:43 AM [facility] nRBC Auto 0.0 0 /100 WBC 11/14/2022 3:43 AM [facility] Neutrophils % 32.3(L) 35.0 - 70.0 % 11/14/2022 3:43 AM [facility] Lymphocytes % 41.5 20.0 - 43.0 % 11/14/2022 3:43 AM [facility] Monocytes % 10.5 5.0 - 13.0 % 11/14/2022 3:43 AM [facility] Eosinophils % 13.8(H) 0.0 - 6.0 % 11/14/2022 3:43 AM [facility] Basophil % 0.6 0.0 - 2.0 % 11/14/2022 3:43 AM [facility] Neutrophils Absolute 1.50(L) 1.60 - 7.00 10? 3 /uL 11/14/2022 3:43 AM [facility] Lymphocyte Absolute 1.93 1.10 - 3.90 10? 3 /uL 11/14/2022 3:43 AM [facility] Monocytes Absolute 0.49 0.26 - 1.07 10? 3 /uL 11/14/2022 3:43 AM [facility] Eosinophils Absolute 0.64(H) 0.00 - 0.47 10? 3 /uL 11/14/2022 3:43 AM [facility] Basophils Absolute 0.03 0.00 - 0.08 10? 3 /uL 11/14/2022 3:43 AM [facility] Immature Granulocytes % 1.3(H) 0.0 - 1.0 % 11/14/2022 3:43 AM [facility] Immature Granulocytes Absolute 0.06 11/14/2022 3:43 AM [facility] Blood BLOOD SPECIMEN / Unknown Lab Venipuncture / Unknown 11/14/2022 2:39 AM CDT 11/14/2022 3:19 AM CDT Good Antunez MD LAB - HEMATOLOGY ORD ERABLES Performing Organization Address [facility] Co de Phone Number [address] [address], [facility] [phone] * (ABNORMAL) PTT [facility] (11/14/2022 2:39 AM CDT) APTT 45.9(H) 23.0 - 38.4 Seconds 11/14/2022 3:39 AM CDT [facility] Comment:Suggested therapeuti c range for full dose I.V. unfractionated heparin therapy for venous thromboembolism is 71 to 109 seconds. Blood BLOOD SPECIMEN / Unknown Lab Venipuncture / Unknown 11/14/2022 2:39 AM CDT 11/14/2022 3:12 AM CDT Good Antunez MD LAB - COAGULATION OR DERABLES Performing Organization Address [facility] de Phone Number [address] [address], [facility] [phone] * (ABNORMAL) PT-INR [facility] (11/14/2022 2:39 AM CDT) PT 15.9(H) 12.1 - 14.8 Seconds 11/14/2022 3:39 AM CDT [facility] INR 1.3 See Comment 11/14/2022 3:39 AM CDT [facility] Comment:The suggested therap eutic range for standard coumadin (warfarin) therapy is an INR of 2.0-3.0. For high-risk patients (Mechanical Mitral Valve Prosthesis, etc.), the suggested prophylactic therapeutic range is an INR of 2.5-3.5. Blood BLOOD SPECIMEN / Unknown Lab Venipuncture / Unknown 11/14/2022 2:39 AM CDT 11/14/2022 3:12 AM CDT Emir Vail MD LAB - COAGULATION OR DERABLES [facility] [address] [place] [address], [place] [phone] * PREPARE FFP UNIT(S), 1 Units (11/14/2022 1:17 AM CDT) Unit Description N/A [facility] Blood Bank BLOOD SPECIMEN / Unknown 11/10/2022 11:51 PM CDT Good Antunez MD LAB - BLOOD BANK ORD ERABLES Performing Organization Address City/[facility]/ZIP Co de Phone Number [facility] [address] [place] [address], [facility] [phone] * PREPARE (CROSSMATCH) RBC UNIT(S), 2 Units (11/14/2022 1:17 AM CDT) Unit Description AS1 LR PRBC [facility] Unit ABO B [facility] Unit Rh POS [facility] Product Number R02 [facility] Unit Donor # [id number] [facility] Unit Status released [facility] Product Code [id number] [facility] Blood Type Barcode 7300 [facility] Expiration Date S [facility] LAB Unit Description AS1 LR PRBC [facility] Unit ABO B [facility] Unit Rh POS [facility] Product Number R02 [facility] Unit Donor # [id number] [facility] Unit Status released [facility] Product Code [id number] [facility] Blood Type Barcode 7300 [facility] Expiration Date S BLOOD BANK LAB Blood Bank BLOOD SPECIMEN / Unknown 11/10/2022 11:51 PM CDT Good Antunez MD LAB - BLOOD BANK ORD ERABLES Performing Organization Address City/[facility]/ZIP Co de Phone Number [facility] [address] [place] [address], [place] [phone] * CYTOMEGALOVIRUS (CMV) QUANTITATIVE PLASMA (11/13/2022 3:34 PM CDT) [facility] CMV Quant by PCR, Interp Not detected Not detected 11/14/2022 12:40 PM CDT [facility] Blood BLOOD SPECIMEN / Unknown Lab Venipuncture / Unknown 11/13/2022 3:34 PM CDT 11/13/2022 3:53 PM CDT Narrative [facility] - 11/14/2022 12:40 PM CDT [...] Antunez MD LAB - CHEMISTRY BIB[place]NA BLACKMAN [facility] [address] [place] [address], [facility] [phone] * MARY JO-HERBERT VIRUS QUANT BLOOD STL (11/13/2022 3:34 PM CDT) [facility] EBV Quant by PCR, Interp Not detected Not detected 11/14/2022 1:40 PM CDT [facility] Specimen Type Plasma 11/14/2022 1:40 PM CDT [facility] Blood BLOOD SPECIMEN / Unknown Lab Venipuncture / Unknown 11/13/2022 3:34 PM CDT 11/13/2022 3:53 PM CDT Narrative [facility] - 11/14/2022 1:40 PM CDT [...] developed and its performance characteristics determined by [facility]. ??It has not been cleared or [...] - CHEMISTRY BIBIANA BLACKMAN Performing Organization Address City/[facility]/ZIP Co de Phone Number [facility] [address] [place] [address], [facility] [phone] * CK BLOOD (11/13/2022 3:34 PM CDT) [facility] CK Total 57 30 - 200 U/L 11/13/2022 4:17 PM CDT [facility] Blood BLOOD SPECIMEN / Unknown Lab Venipuncture / Unknown 11/13/2022 3:34 PM CDT 11/13/2022 3:52 PM CDT Good Antunez MD LAB - CHEMISTRY BIB[place]NA BLACKMAN Performing Organization Address City/[facility]/ZIP Co de Phone Number [address] [address], [place] [phone] * (ABNORMAL) GLUCOSE - POINT OF CARE (11/13/2022 4:14 AM CDT) [facility] Glucose WB/POC 120(H) 70 - 115 mg/dL 11/13/2022 4:27 AM CDT [facility] Specimen Type Cap Fingerstick 2022 4:27 AM CDT [facility] Blood BLOOD SPECIMEN / Unknown 11/13/2022 4:14 AM CDT 11/13/2022 4:27 AM CDT Good Antunez MD LAB - POINT OF CARE ORDERABLES [address] [address], [place] [phone] * T4 FREE (11/13/2022 2:10 AM CDT) [facility] T4 Free 1.1 0.7 - 1.5 ng/dL 11/13/2022 4:05 AM CDT [facility] Blood BLOOD SPECIMEN / Unknown Lab Venipuncture / Unknown 11/13/2022 2:10 AM CDT 11/13/2022 2:44 AM CDT Good Antunez MD LAB - CHEMISTRY ORDE RABLES [facility] [address] [place] [address], [place] [phone] * (ABNORMAL) HEPATIC FUNCTION PANEL (11/13/2022 2:10 AM CDT) [facility] Protein Total 6.5 6.0 - 8.3 g/dL 023 3:16 AM CDT [facility] Albumin 2.4(L) 3.4 - 5.0 g/dL 11/13/2022 3:16 AM CDT [facility] Bilirubin Total 0.3 0.2 - 1.2 mg/dL 06/2022 3:16 AM CDT [facility] Bilirubin Conjugated 0.1 0.1 - 0.5 mg/dL 11/13/2022 3:16 AM T [facility] Bilirubin Unconjugated 0.2 Unconjugated Bilirubin is a calculated value: Reference ranges have not been established. mg/dL 11/13/2022 3:16 AM CDT [facility] Alkaline Phosphatase 77 40 - 150 U/L 11/13/2022 3:16 AM T [facility] ALT 286(H) 5 - 55 U/L 11/13/2022 3:16 AM T [facility] AST 195(H) 5 - 34 U/L 11/13/2022 3:16 AM [facility] Albumin/Globulin Ratio 0.6(L) 1.1 - 2.3 11/13/2022 3:16 AM T [facility] Blood BLOOD SPECIMEN / Unknown Lab Venipuncture / Unknown 11/13/2022 2:10 AM CDT 11/13/2022 2:44 AM CDT Good Antunez MD LAB - CHEMISTRY BIB[place]NA BLACKMAN [address] [address], [facility] [phone] * PHOSPHORUS BLOOD (11/13/2022 2:10 AM CDT) Phosphorus 3.9 2.9 - 5.1 mg/dL 11/13/2022 3:16 AM CDT [facility] Blood BLOOD SPECIMEN / Unknown Lab Venipuncture / Unknown 11/13/2022 2:10 AM CDT 11/13/2022 2:44 AM CDT Good Antunez MD LAB - CHEMISTRY BIB[place]NA BLACKMAN [address] [address], [facility] [phone] * MAGNESIUM BLOOD (11/13/2022 2:10 AM CDT) Magnesium 2.2 1.6 - 2.6 mg/dL 11/13/2022 3:14 AM [facility] Blood BLOOD SPECIMEN / Unknown Lab Venipuncture / Unknown 11/13/2022 2:10 AM CDT 11/13/2022 2:44 AM CDT Good Antunez MD LAB - CHEMISTRY BIBIANA BLACKMAN [facility] Organization Address City/State/ZIP Co de Phone Number [facility] [address] [place] [address], [facility] [phone] * (ABNORMAL) BASIC METABOLIC PANEL (CALCIUM TOTAL) (11/13/2022 2:10 AM CDT) BUN 11 7 - 26 mg/dL 11/13/2022 3:14 AM [facility] Creatinine 0.54(L) 0.56 - 0.96 mg/dL 11/13/2022 3:14 AM [facility] Sodium 138 136 - 145 mmol/L 11/13/2022 3:14 AM [facility] Potassium 3.9 3.5 - 4.5 mmol/L 11/13/2022 3:14 AM [facility] Chloride 107 98 - 107 mmol/L 11/13/2022 3:14 AM [facility] CO2 23 22 - 29 mmol/L 11/13/2022 3:14 AM [facility] Glucose 105 70 - 115 mg/dL 11/13/2022 3:14 AM [facility] Calcium 8.1(L) 8.4 - 10.2 mg/dL 11/13/2022 3:14 AM [facility] Anion Gap 12 8 - 18 11/13/2022 3:14 AM [facility] BUN/Creatinine Ratio 20 7 - 23 11/13/2022 3:14 AM [facility] Osmolality Calculated 286 270 - 300 mOsm/kg 11/13/2022 3:14 AM [facility] eGFR by CKD-EPI >90 >=90 mL/min/1.7 3 m2 11/13/2022 3:14 AM [facility] Blood BLOOD SPECIMEN / Unknown Lab Venipuncture / Unknown 11/13/2022 2:10 AM CDT 11/13/2022 2:44 AM CDT Good Antunez MD LAB - CHEMISTRY BIBIANA BLACKMAN [facility] Organization Address City/State/ZIP Co de Phone Number [facility] [address] [place] [address], [facility] [phone] * (ABNORMAL) CBC W AUTO DIFFERENTIAL (11/13/2022 2:10 AM CDT) WBC 2.7(L) 3.5 - 10.5 10? 3 /uL 11/13/2022 3:11 AM T [facility] RBC 3.36(L) 3.80 - 5.20 10? 6 /uL 11/13/2022 3:11 AM [facility] Hemoglobin 9.8(L) 12.0 - 15.6 g/dL 11/13/2022 3:11 AM [facility] Hematocrit 30.8(L) 35.0 - 45.0 % 11/13/2022 3:11 AM [facility] MCV 91.7 80.7 - 98.3 fL 11/13/2022 3:11 AM [facility] MCH 29.2 26.7 - 34.0 pg 11/13/2022 3:11 AM [facility] MCHC 31.8 30.8 - 35.9 g/dL 11/13/2022 3:11 AM [facility] RDW-SD 49.2 36.0 - 50.0 fL 11/13/2022 3:11 AM [facility] RDW-CV 14.9(H) 11.2 - 14.8 % 11/13/2022 3:11 AM [facility] Platelet Count 334 150 - 400 10? 3 /uL 11/13/2022 3:11 AM [facility] MPV 11.0 9.4 - 12.9 fL 11/13/2022 3:11 AM [facility] nRBC Absolute 0.00 0 10? 3 /uL 11/13/2022 3:11 AM [facility] nRBC Auto 0.0 0 /100 WBC 11/13/2022 3:11 AM [facility] Neutrophils % 28.1(L) 35.0 - 70.0 % 11/13/2022 3:11 AM [facility] Lymphocytes % 45.3(H) 20.0 - 43.0 % 11/13/2022 3:11 AM [facility] Monocytes % 14.6(H) 5.0 - 13.0 % 11/13/2022 3:11 AM [facility] Eosinophils % 9.4(H) 0.0 - 6.0 % 11/13/2022 3:11 AM [facility] Basophil % 0.4 0.0 - 2.0 % 11/13/2022 3:11 AM [facility] Neutrophils Absolute 0.75(L) 1.60 - 7.00 10? 3 /uL 11/13/2022 3:11 AM [facility] Lymphocyte Absolute 1.21 1.10 - 3.90 10? 3 /uL 11/13/2022 3:11 AM [facility] Monocytes Absolute 0.39 0.26 - 1.07 10? 3 /uL 11/13/2022 3:11 AM [facility] Eosinophils Absolute 0.25 0.00 - 0.47 10? 3 /uL 11/13/2022 3:11 AM [facility] Basophils Absolute 0.01 0.00 - 0.08 10? 3 /uL 11/13/2022 3:11 AM [facility] Immature Granulocytes % 2.2(H) 0.0 - 1.0 % 11/13/2022 3:11 AM [facility] Immature Granulocytes Absolute 0.06 11/13/2022 3:11 AM [facility] Blood BLOOD SPECIMEN / Unknown Lab Venipuncture / Unknown 11/13/2022 2:10 AM CDT 11/13/2022 2:44 AM T Good Antunez MD LAB - HEMATOLOGY ORD ERABLES [facility] [address] [place] [address], [facility] [phone] * (ABNORMAL) PTT [facility] (11/13/2022 2:10 AM CDT) APTT 47.9(H) 23.0 - 38.4 Seconds 11/13/2022 2:56 AM CDT [facility] Comment:Suggested therapeuti c range for full dose I.V. unfractionated heparin therapy for venous thromboembolism is 71 to 109 seconds. Blood BLOOD SPECIMEN / Unknown Lab Venipuncture / Unknown 11/13/2022 2:10 AM CDT 11/13/2022 2:39 AM CDT Good Antunez MD LAB - COAGULATION OR DERABLES [address] [address], [facility] [phone] * (ABNORMAL) PT-INR [facility] (11/13/2022 2:10 AM CDT) Pathologist [facility] PT 17.7(H) 12.1 - 14.8 Seconds 11/13/2022 2:56 AM CDT [facility] INR 1.5 See Comment 11/13/2022 2:56 AM CDT [facility] Comment:The suggested therap eutic range for standard coumadin (warfarin) therapy is an INR of 2.0-3.0. For high-risk patients (Mechanical Mitral Valve Prosthesis, etc.), the suggested prophylactic therapeutic range is an INR of 2.5-3.5. Blood BLOOD SPECIMEN / Unknown Lab Venipuncture / Unknown 11/13/2022 2:10 AM CDT 11/13/2022 2:39 AM CDT Emir Vail MD LAB - COAGULATION OR DERABLES [address] [address], [facility] [phone] * (ABNORMAL) TSH REFLEX FREE T4 (11/13/2022 2:10 AM CDT) TSH 5.706(H) 0.350 - 4.940 uIU/mL 11/13/2022 3:33 AM CDT [facility] Blood BLOOD SPECIMEN / Unknown Lab Venipuncture / Unknown 11/13/2022 2:10 AM CDT 11/13/2022 2:44 AM CDT Good Antunez MD LAB - CHEMISTRY ORDE HIRAL Performing Organization Address City/[facility]/ZIP Co de Phone Number [address] [address], [place] [phone] * GLUCOSE - POINT OF CARE (11/12/2022 11:52 PM CDT) Glucose WB/POC 111 70 - 115 mg/dL 11/13/2022 12:06 AM CDT [facility] Specimen Type Cap Fingerstick 2022 12:06 AM CDT [facility] Blood BLOOD SPECIMEN / Unknown 11/12/2022 11:52 PM CDT 11/13/2022 12:06 AM CDT Good Antunez MD LAB - POINT OF CARE ORDERABLES Performing Organization Address City/[facility]/ZIP Co de Phone Number [address] [address], [place] [phone] * XR CHEST 1VW PORTABLE (11/12/2022 8:44 PM CDT) Anatomical Region Laterality Modality Chest Radiographic Irene ging 11/13/2022 10:4 6 AM CDT Narrative 11/13/2022 11:59 AM CDT PROCEDURE: ??XR CHEST 1VW PORTABLE, DATE/TIME OF EXAM: ??11/12/2022 8:45 PM, LOCATION ??[facility] INDICATION: R50.9: Fever, unspecified fever cause [...] Report dictated by Agnes Olmos DO (residential program director). Pepe Ornelas MD have personally reviewed and interpreted this examination/study. > Interpreting Provider: Pepe Gonzalez MD on 11/13/2022 11:59 AM Procedure Note Pepe Gonzalez MD - 11/13/2022 PROCEDURE: XR CHEST 1VW PORTABLE, DATE/TIME OF EXAM: 11/12/2022 8:45 PM, LOCATION [facility] INDICATION: R50.9: Fever, unspecified fever cause [...] Report dictated by Agnes Olmos DO (residential program director). Pepe Ornelas MD have personally reviewed and interpreted this examination/study. > Interpreting Provider: Pepe Gonzalez MD on 11/13/2022 11:59 AM Good Antunez MD DIAGNOSTIC IMAGING O RDERABLES * (ABNORMAL) GLUCOSE - POINT OF CARE (11/12/2022 7:40 PM CDT) Glucose WB/POC 117(H) 70 - 115 mg/dL 11/12/2022 7:43 PM CDT [facility] Specimen Type Cap Fingerstick 2022 7:43 PM CDT [facility] Blood BLOOD SPECIMEN / Unknown 11/12/2022 7:40 PM CDT 11/12/2022 7:43 PM CDT Good Antunez MD LAB - POINT OF CARE ORDERABLES [facility] [address] [place] [address], [facility] [phone] * (ABNORMAL) PTT [facility] (11/12/2022 5:32 AM CDT) APTT 102.7(HH) 23.0 - 38.4 Seconds 11/12/2022 6:42 AM CDT [facility] Comment:Suggested therapeuti c range for full dose I.V. unfractionated heparin therapy for venous thromboembolism is 71 to 109 seconds. Blood BLOOD SPECIMEN / Unknown Lab Venipuncture / Unknown 11/12/2022 5:32 AM CDT 11/12/2022 6:08 AM CDT Good Antunez MD LAB - COAGULATION OR DERABLES Performing Organization Address [facility]/ZIP Co de Phone Number [address] [address], [facility] [phone] * (ABNORMAL) PHOSPHORUS BLOOD (11/12/2022 5:32 AM CDT) Phosphorus 2.5(L) 2.9 - 5.1 mg/dL 11/12/2022 6:45 AM CDT [facility] Blood BLOOD SPECIMEN / Unknown Lab Venipuncture / Unknown 11/12/2022 5:32 AM CDT 11/12/2022 6:16 AM CDT Good Antunez MD LAB - CHEMISTRY [place] [facility] Performing Organization Address [facility] Co de Phone Number [address] [address], [place] [phone] * MAGNESIUM BLOOD (11/12/2022 5:32 AM CDT) Magnesium 1.7 1.6 - 2.6 mg/dL 11/12/2022 6:45 AM CDT [facility] Blood BLOOD SPECIMEN / Unknown Lab Venipuncture / Unknown 11/12/2022 5:32 AM CDT 11/12/2022 6:16 AM CDT Good Antunez MD LAB - CHEMISTRY [place] BLACK[facility] [address] [place] [address], [facility] [phone] * (ABNORMAL) BASIC METABOLIC PANEL (CALCIUM TOTAL) (11/12/2022 5:32 AM CDT) BUN 13 7 - 26 mg/dL 11/12/2022 6:45 AM [facility] Creatinine 0.59 0.56 - 0.96 mg/dL 11/12/2022 6:45 AM [facility] Sodium 136 136 - 145 mmol/L 11/12/2022 6:45 AM [facility] Potassium 3.3(L) 3.5 - 4.5 mmol/L 11/12/2022 6:45 AM [facility] Chloride 105 98 - 107 mmol/L 11/12/2022 6:45 AM [facility] CO2 21(L) 22 - 29 mmol/L 11/12/2022 6:45 AM [facility] Glucose 120(H) 70 - 115 mg/dL 11/12/2022 6:45 AM [facility] Calcium 7.8(L) 8.4 - 10.2 mg/dL 11/12/2022 6:45 AM [facility] Anion Gap 13 8 - 18 11/12/2022 6:45 AM [facility] BUN/Creatinine Ratio 22 7 - 23 11/12/2022 6:45 AM [facility] Osmolality Calculated 283 270 - 300 mOsm/kg 11/12/2022 6:45 AM [facility] eGFR by CKD-EPI >90 >=90 mL/min/1.7 3 m2 11/12/2022 6:45 AM [facility] Blood BLOOD SPECIMEN / Unknown Lab Venipuncture / Unknown 11/12/2022 5:32 AM CDT 11/12/2022 6:16 AM [facility] Good Antunez MD LAB - CHEMISTRY BIIBANA BLACKMAN [facility] [address] [place] [phone] [phone] * (ABNORMAL) CBC W AUTO DIFFERENTIAL (11/12/2022 5:32 AM [facility]) WBC 4.8 3.5 - 10.5 10? 3 /uL 11/12/2022 6:27 AM [facility] RBC 3.27(L) 3.80 - 5.20 10? 6 /uL 11/12/2022 6:27 AM [facility] Hemoglobin 9.4(L) 12.0 - 15.6 g/dL 11/12/2022 6:27 AM [facility] Hematocrit 30.2(L) 35.0 - 45.0 % 11/12/2022 6:27 AM [facility] MCV 92.4 80.7 - 98.3 fL 11/12/2022 6:27 AM [facility] MCH 28.7 26.7 - 34.0 pg 11/12/2022 6:27 AM [facility] MCHC 31.1 30.8 - 35.9 g/dL 11/12/2022 6:27 AM [facility] RDW-SD 48.6 36.0 - 50.0 fL 11/12/2022 6:27 AM [facility] RDW-CV 14.6 11.2 - 14.8 % 11/12/2022 6:27 AM [facility] Platelet Count 333 150 - 400 10? 3 /uL 11/12/2022 6:27 AM [facility] MPV 11.1 9.4 - 12.9 fL 11/12/2022 6:27 AM [facility] nRBC Absolute 0.00 0 10? 3 /uL 11/12/2022 6:27 AM [facility] nRBC Auto 0.0 0 /100 WBC 11/12/2022 6:27 AM [facility] Neutrophils % 70.4(H) 35.0 - 70.0 % 11/12/2022 6:27 AM [facility] Lymphocytes % 17.7(L) 20.0 - 43.0 % 11/12/2022 6:27 AM [facility] Monocytes % 4.6(L) 5.0 - 13.0 % 11/12/2022 6:27 AM [facility] Eosinophils % 6.1(H) 0.0 - 6.0 % 11/12/2022 6:27 AM [facility] Basophil % 0.2 0.0 - 2.0 % 11/12/2022 6:27 AM [facility] Neutrophils Absolute 3.37 1.60 - 7.00 10? 3 /uL 11/12/2022 6:27 AM [facility] Lymphocyte Absolute 0.85(L) 1.10 - 3.90 10? 3 /uL 11/12/2022 6:27 AM [facility] Monocytes Absolute 0.22(L) 0.26 - 1.07 10? 3 /uL 11/12/2022 6:27 AM [facility] Eosinophils Absolute 0.29 0.00 - 0.47 10? 3 /uL 11/12/2022 6:27 AM [facility] Basophils Absolute 0.01 0.00 - 0.08 10? 3 /uL 11/12/2022 6:27 AM [facility] Immature Granulocytes % 1.0 0.0 - 1.0 % 11/12/2022 6:27 AM [facility] Immature Granulocytes Absolute 0.05 11/12/2022 6:27 AM [facility] Blood BLOOD SPECIMEN / Unknown Lab Venipuncture / Unknown 11/12/2022 5:32 AM CDT 11/12/2022 6:15 AM CDT Good Antunez MD LAB - HEMATOLOGY ORD ERABLES [facility] [address] [place] [address], [facility] [phone] * (ABNORMAL) PT-INR [facility] (11/12/2022 5:32 AM CDT) PT 22.1(H) 12.1 - 14.8 Seconds 11/12/2022 6:42 AM [facility] INR 2.0 See Comment 11/12/2022 6:42 AM [facility] Comment:The suggested therap eutic range for standard coumadin (warfarin) therapy is an INR of 2.0-3.0. For high-risk patients (Mechanical Mitral Valve Prosthesis, etc.), the suggested prophylactic therapeutic range is an INR of 2.5-3.5. Blood BLOOD SPECIMEN / Unknown Lab Venipuncture / Unknown 11/12/2022 5:32 AM CDT 11/12/2022 6:08 AM CDT Emir Vail MD LAB - COAGULATION OR DERABLES [facility] [address] [place] [address], [facility] [phone] * (ABNORMAL) HEPATIC FUNCTION PANEL (11/12/2022 5:32 AM CDT) Protein Total 6.5 6.0 - 8.3 g/dL 023 6:53 AM [facility] Albumin 2.5(L) 3.4 - 5.0 g/dL 11/12/2022 6:53 AM [facility] Bilirubin Total 0.3 0.2 - 1.2 mg/dL 05/2022 6:53 AM [facility] Bilirubin Conjugated 0.2 0.1 - 0.5 mg/dL 11/12/2022 6:53 AM [facility] Bilirubin Unconjugated 0.1 Unconjugated Bilirubin is a calculated value: Reference ranges have not been established. mg/dL 11/12/2022 6:53 AM [facility] Alkaline Phosphatase 75 40 - 150 U/L 11/12/2022 6:53 AM [facility] ALT 266(H) 5 - 55 U/L 11/12/2022 6:53 AM [facility] AST 220(H) 5 - 34 U/L 11/12/2022 6:53 AM [facility] Albumin/Globulin Ratio 0.6(L) 1.1 - 2.3 11/12/2022 6:53 AM [facility] Blood BLOOD SPECIMEN / Unknown Lab Venipuncture / Unknown 11/12/2022 5:32 AM CDT 11/12/2022 6:16 AM CDT Good Antunez MD LAB - CHEMISTRY BIBIANA BLACKMAN Performing Organization Address City/[facility]/ZIP Co de Phone Number [facility] [address] [place] [address], [place] [phone] * CULTURE BLOOD (11/12/2022 5:32 AM CDT) Pathologist [facility] Culture No growth day 5 ROSELIA 11/17/2022 10:01 AM CDT [facility] MICROBIOLOGY Blood PERIPHERAL BLOOD / Unknown Lab Venipuncture / Unknown 11/12/2022 5:32 AM CDT 11/12/2022 6:09 AM CDT Good Antunez MD LAB - MICROBIOLOGY O RDERABLES Performing Organization Address City/[facility]/ZIP Co de Phone Number [facility]CROBIOLOG[facility] [address] [place] [address], [facility] [phone] * (ABNORMAL) GLUCOSE - POINT OF CARE (11/12/2022 3:44 AM CDT) Pathologist [facility] Glucose WB/POC 128(H) 70 - 115 mg/dL 11/12/2022 3:49 AM CDT [facility] Specimen Type Cap Fingerstick 2022 3:49 AM CDT [facility] Blood BLOOD SPECIMEN / Unknown 11/12/2022 3:44 AM CDT 11/12/2022 3:49 AM CDT Good Antunez MD LAB - POINT OF CARE ORDERABLES Performing Organization Address City/[facility]/ZIP Co de Phone Number [facility] [address] [place] [address], [place] [phone] * (ABNORMAL) PTT [facility] (11/11/2022 11:51 PM CDT) Pathologist [facility] APTT 78.8(H) 23.0 - 38.4 Seconds 11/12/2022 12:49 AM CDT [facility] Comment:Suggested therapeuti c range for full dose I.V. unfractionated heparin therapy for venous thromboembolism is 71 to 109 seconds. Blood BLOOD SPECIMEN / Unknown Venipuncture / Unknown 11/11/2022 11:51 PM CDT 11/11/2022 11:59 PM CDT Good Antunez MD LAB - COAGULATION OR DERABLES Performing Organization Address City/[facility]/ZIP Co de Phone Number [address] [address], [place] [phone] * (ABNORMAL) GLUCOSE - POINT OF CARE (11/11/2022 11:33 PM CDT) Glucose WB/POC 129(H) 70 - 115 mg/dL 11/11/2022 11:38 PM CDT [facility] Specimen Type Cap Fingerstick 2022 11:38 PM CDT [facility] Blood BLOOD SPECIMEN / Unknown 11/11/2022 11:33 PM CDT 11/11/2022 11:38 PM CDT Good Antunez MD LAB - POINT OF CARE ORDERABLES Performing Organization Address [facility] Co de Phone Number [address] [address], [place] [phone] * GLUCOSE - POINT OF CARE (11/11/2022 9:25 PM CDT) Glucose WB/POC 95 70 - 115 mg/dL 11/11/2022 9:30 PM CDT [facility] Specimen Type Cap Fingerstick 2022 9:30 PM CDT [facility] Blood BLOOD SPECIMEN / Unknown 11/11/2022 9:25 PM CDT 11/11/2022 9:30 PM CDT Good Antunez MD LAB - POINT OF CARE ORDERABLES Performing Organization Address City/[facility]/ZIP Co de Phone Number [address] [address], [place] [phone] * (ABNORMAL) PTT [facility] (11/11/2022 5:03 PM CDT) APTT 140.8(HH) 23.0 - 38.4 Seconds 11/11/2022 5:47 PM CDT [facility] Comment:Suggested therapeuti c range for full dose I.V. unfractionated heparin therapy for venous thromboembolism is 71 to 109 seconds. Blood BLOOD SPECIMEN / Unknown Venipuncture / Unknown 11/11/2022 5:03 PM CDT 11/11/2022 5:08 PM CDT Good Antunez MD LAB - COAGULATION OR DERABLES Performing Organization Address City/[facility]/ZIP Co de Phone Number [address] [address], [facility] [phone] * PHOSPHORUS BLOOD (11/11/2022 5:03 PM CDT) Phosphorus 3.3 2.9 - 5.1 mg/dL 11/11/2022 5:34 PM CDT [facility] Blood BLOOD SPECIMEN / Unknown Venipuncture / Unknown 11/11/2022 5:03 PM CDT 11/11/2022 5:22 PM CDT Good Antunez MD LAB - CHEMISTRY BIBIANA BLACKMAN Performing Organization Address [facility]/ZIP Co de Phone Number [address] [address], [facility] [phone] * MAGNESIUM BLOOD (11/11/2022 5:03 PM CDT) Magnesium 2.0 1.6 - 2.6 mg/dL 11/11/2022 5:34 PM CDT [facility] Blood BLOOD SPECIMEN / Unknown Venipuncture / Unknown 11/11/2022 5:03 PM CDT 11/11/2022 5:22 PM CDT Good Antunez MD LAB - CHEMISTRY BIBIANA BLACKMAN [facility] [address] [place] [address], [facility] [phone] * (ABNORMAL) BASIC METABOLIC PANEL (CALCIUM TOTAL) (11/11/2022 5:03 PM CDT) BUN 11 7 - 26 mg/dL 11/11/2022 5:34 PM [facility] Creatinine 0.56 0.56 - 0.96 mg/dL 11/11/2022 5:34 PM [facility] Sodium 140 136 - 145 mmol/L 11/11/2022 5:34 PM [facility] Potassium 3.8 3.5 - 4.5 mmol/L 11/11/2022 5:34 PM [facility] Chloride 108(H) 98 - 107 mmol/L 11/11/2022 5:34 PM [facility] CO2 22 22 - 29 mmol/L 11/11/2022 5:34 PM [facility] Glucose 105 70 - 115 mg/dL 11/11/2022 5:34 PM [facility] Calcium 8.4 8.4 - 10.2 mg/dL 11/11/2022 5:34 PM [facility] Anion Gap 14 8 - 18 11/11/2022 5:34 PM [facility] BUN/Creatinine Ratio 20 7 - 23 11/11/2022 5:34 PM [facility] Osmolality Calculated 290 270 - 300 mOsm/kg 11/11/2022 5:34 PM [facility] eGFR by CKD-EPI >90 >=90 mL/min/1.7 3 m2 11/11/2022 5:34 PM [facility] Blood BLOOD SPECIMEN / Unknown Venipuncture / Unknown 11/11/2022 5:03 PM CDT 11/11/2022 5:22 PM T Good Antunez MD LAB - CHEMISTRY ORDE HIRAL [facility] Organization Address City/State/ZIP Co de Phone Number [facility] [address] [place] [address], [facility] [phone] * (ABNORMAL) CBC W AUTO DIFFERENTIAL (11/11/2022 5:03 PM [facility]) [facility] Signature WBC 5.0 3.5 - 10.5 10? 3 /uL 11/11/2022 5:17 PM [facility] RBC 3.41(L) 3.80 - 5.20 10? 6 /uL 11/11/2022 5:17 PM [facility] Hemoglobin 9.9(L) 12.0 - 15.6 g/dL 11/11/2022 5:17 PM [facility] Hematocrit 31.9(L) 35.0 - 45.0 % 11/11/2022 5:17 PM [facility] MCV 93.5 80.7 - 98.3 fL 11/11/2022 5:17 PM [facility] MCH 29.0 26.7 - 34.0 pg 11/11/2022 5:17 PM [facility] MCHC 31.0 30.8 - 35.9 g/dL 11/11/2022 5:17 PM [facility] RDW-SD 49.3 36.0 - 50.0 fL 11/11/2022 5:17 PM [facility] RDW-CV 14.6 11.2 - 14.8 % 11/11/2022 5:17 PM [facility] Platelet Count 332 150 - 400 10? 3 /uL 11/11/2022 5:17 PM [facility] MPV 10.8 9.4 - 12.9 fL 11/11/2022 5:17 PM [facility] nRBC Absolute 0.00 0 10? 3 /uL 11/11/2022 5:17 PM [facility] nRBC Auto 0.0 0 /100 WBC 11/11/2022 5:17 PM [facility] Neutrophils % 64.9 35.0 - 70.0 % 11/11/2022 5:17 PM [facility] Lymphocytes % 23.3 20.0 - 43.0 % 11/11/2022 5:17 PM [facility] Monocytes % 8.2 5.0 - 13.0 % 11/11/2022 5:17 PM [facility] Eosinophils % 2.0 0.0 - 6.0 % 11/11/2022 5:17 PM [facility] Basophil % 0.4 0.0 - 2.0 % 11/11/2022 5:17 PM T [facility] Neutrophils Absolute 3.23 1.60 - 7.00 10? 3 /uL 11/11/2022 5:17 PM CDT [facility] Lymphocyte Absolute 1.16 1.10 - 3.90 10? 3 /uL 11/11/2022 5:17 PM CDT [facility] Monocytes Absolute 0.41 0.26 - 1.07 10? 3 /uL 11/11/2022 5:17 PM T [facility] Eosinophils Absolute 0.10 0.00 - 0.47 10? 3 /uL 11/11/2022 5:17 PM T [facility] Basophils Absolute 0.02 0.00 - 0.08 10? 3 /uL 11/11/2022 5:17 PM T [facility] Immature Granulocytes % 1.2(H) 0.0 - 1.0 % 11/11/2022 5:17 PM T [facility] Immature Granulocytes Absolute 0.06 11/11/2022 5:17 PM CDT [facility] Blood BLOOD SPECIMEN / Unknown Venipuncture / Unknown 11/11/2022 5:03 PM CDT 11/11/2022 5:11 PM CDT Good Antunez MD LAB - HEMATOLOGY ORD ERABLES Performing Organization Address [facility]/State/[facility] Co de Phone Number [address] [phone] [phone] * LACTIC ACID BLOOD REFLEX TO REPEAT (11/11/2022 5:03 PM CDT) Lactic Acid-Stat 1.0 <=2.0 mmol/L 11/11/2022 5:35 PM CDT [facility] Blood BLOOD SPECIMEN / Unknown Venipuncture / Unknown 11/11/2022 5:03 PM CDT 11/11/2022 5:09 PM CDT Good Antunez MD LAB - CHEMISTRY BIBIANA BLACKMAN Performing Organization Address [facility]/ZIP Co de Phone Number [address] [address], [facility] [phone] * (ABNORMAL) PTT [facility] (11/11/2022 9:28 AM CDT) APTT 129.8(HH) 23.0 - 38.4 Seconds 11/11/2022 10:30 AM [facility] Comment:Suggested therapeuti c range for full dose I.V. unfractionated heparin therapy for venous thromboembolism is 71 to 109 seconds. Blood BLOOD SPECIMEN / Unknown Venipuncture / Unknown 11/11/2022 9:28 AM CDT 11/11/2022 9:28 AM CDT Good Antunez MD LAB - COAGULATION OR DERABLES Performing Organization Address [facility] Co de Phone Number [address] [address], [facility] [phone] * (ABNORMAL) PT-INR [facility] (11/11/2022 9:28 AM CDT) PT 16.2(H) 12.1 - 14.8 Seconds 11/11/2022 10:30 AM [facility] INR 1.3 See Comment 11/11/2022 10:30 AM T [facility] Comment:The suggested therap eutic range for standard coumadin (warfarin) therapy is an INR of 2.0-3.0. For high-risk patients (Mechanical Mitral Valve Prosthesis, etc.), the suggested prophylactic therapeutic range is an INR of 2.5-3.5. Blood BLOOD SPECIMEN / Unknown Venipuncture / Unknown 11/11/2022 9:28 AM CDT 11/11/2022 9:28 AM CDT Emir Vail MD LAB - COAGULATION OR DERABLES Performing Organization Address City/[facility]/ZIP Co de Phone Number [address] [address], [facility] [phone] * (ABNORMAL) GLUCOSE - POINT OF CARE (11/11/2022 4:48 AM CDT) Glucose WB/POC 148(H) 70 - 115 mg/dL 11/11/2022 8:15 AM CDT [facility] Specimen Type Cap Fingerstick 2022 8:15 AM CDT [facility] Blood BLOOD SPECIMEN / Unknown 11/11/2022 4:48 AM CDT 11/11/2022 8:15 AM CDT Good Antunez MD LAB - POINT OF CARE ORDERABLES [address] [address], [facility] [phone] * (ABNORMAL) GLUCOSE - POINT OF CARE (11/11/2022 12:33 AM CDT) Glucose WB/POC 130(H) 70 - 115 mg/dL 11/11/2022 12:37 AM CDT [facility] Specimen Type Cap Fingerstick 2022 12:37 AM CDT [facility] Blood BLOOD SPECIMEN / Unknown 11/11/2022 12:33 AM CDT 11/11/2022 12:37 AM CDT Good Antunez MD LAB - POINT OF CARE ORDERABLES [address] [address], [facility] [phone] * TYPE + SCREEN PANEL (11/10/2022 11:38 PM CDT) Antibody Screen NEG 12:45 AM CDT [facility] ABO Rh B POS 11/11/2022 12:45 AM CDT [facility] Blood Bank BLOOD SPECIMEN / Unknown Lab Venipuncture / Unknown 11/10/2022 11:38 PM CDT 11/10/2022 11:51 PM CDT Good Antunez MD LAB - BLOOD BANK ORD ERABLES [facility] [address] [place] [address], [facility] [phone] * (ABNORMAL) CBC W AUTO DIFFERENTIAL (11/10/2022 11:38 PM CDT) WBC 7.1 3.5 - 10.5 10? 3 /uL 11/11/2022 1:02 AM [facility] RBC 3.22(L) 3.80 - 5.20 10? 6 /uL 11/11/2022 1:02 AM [facility] Hemoglobin 9.5(L) 12.0 - 15.6 g/dL 11/11/2022 1:02 AM [facility] Hematocrit 29.7(L) 35.0 - 45.0 % 11/11/2022 1:02 AM [facility] MCV 92.2 80.7 - 98.3 fL 11/11/2022 1:02 AM [facility] MCH 29.5 26.7 - 34.0 pg 11/11/2022 1:02 AM [facility] MCHC 32.0 30.8 - 35.9 g/dL 11/11/2022 1:02 AM [facility] RDW-SD 48.4 36.0 - 50.0 fL 11/11/2022 1:02 AM [facility] RDW-CV 14.5 11.2 - 14.8 % 11/11/2022 1:02 AM [facility] Platelet Count 297 150 - 400 10? 3 /uL 11/11/2022 1:02 AM [facility] MPV 11.1 9.4 - 12.9 fL 11/11/2022 1:02 AM [facility] nRBC Absolute 0.00 0 10? 3 /uL 11/11/2022 1:02 AM [facility] nRBC Auto 0.0 0 /100 WBC 11/11/2022 1:02 AM [facility] Neutrophils % 85.3(H) 35.0 - 70.0 % 11/11/2022 1:02 AM [facility] Lymphocytes % 10.1(L) 20.0 - 43.0 % 11/11/2022 1:02 AM [facility] Monocytes % 3.0(L) 5.0 - 13.0 % 11/11/2022 1:02 AM [facility] Eosinophils % 0.1 0.0 - 6.0 % 11/11/2022 1:02 AM [facility] Basophil % 0.1 0.0 - 2.0 % 11/11/2022 1:02 AM [facility] Neutrophils Absolute 6.01 1.60 - 7.00 10? 3 /uL 11/11/2022 1:02 AM [facility] Lymphocyte Absolute 0.71(L) 1.10 - 3.90 10? 3 /uL 11/11/2022 1:02 AM [facility] Monocytes Absolute 0.21(L) 0.26 - 1.07 10? 3 /uL 11/11/2022 1:02 AM [facility] Eosinophils Absolute 0.01 0.00 - 0.47 10? 3 /uL 11/11/2022 1:02 AM [facility] Basophils Absolute 0.01 0.00 - 0.08 10? 3 /uL 11/11/2022 1:02 AM [facility] Immature Granulocytes % 1.4(H) 0.0 - 1.0 % 11/11/2022 1:02 AM [facility] Immature Granulocytes Absolute 0.10 11/11/2022 1:02 AM [facility] Blood BLOOD SPECIMEN / Unknown Lab Venipuncture / Unknown 11/10/2022 11:38 PM CDT 11/10/2022 11:50 PM CDT Good Antunez MD LAB - HEMATOLOGY ORD ERABLES [facility] [address] [place] [address], [facility] [phone] * PTT [facility] (11/10/2022 11:38 PM CDT) APTT 36.3 23.0 - 38.4 Seconds 11/11/2022 12:07 AM [facility] Comment:Suggested therapeuti c range for full dose I.V. unfractionated heparin therapy for venous thromboembolism is 71 to 109 seconds. Blood BLOOD SPECIMEN / Unknown Lab Venipuncture / Unknown 11/10/2022 11:38 PM CDT 11/10/2022 11:56 PM CDT Good Antunez MD LAB - COAGULATION OR DERABLES Performing Organization Address City/[facility]/ZIP Co de Phone Number [facility] [address] [place] [address], [facility] [phone] * (ABNORMAL) PT-INR [facility] (11/10/2022 11:38 PM CDT) [facility] PT 15.6(H) 12.1 - 14.8 Seconds 11/11/2022 12:07 AM T [facility] INR 1.3 See Comment 11/11/2022 12:07 AM [facility] Comment:The suggested therap eutic range for standard coumadin (warfarin) therapy is an INR of 2.0-3.0. For high-risk patients (Mechanical Mitral Valve Prosthesis, etc.), the suggested prophylactic therapeutic range is an INR of 2.5-3.5. Blood BLOOD SPECIMEN / Unknown Lab Venipuncture / Unknown 11/10/2022 11:38 PM CDT 11/10/2022 11:56 PM CDT Good Antunez MD LAB - COAGULATION OR DERABLES Performing Organization Address City/[facility]/ZIP Co de Phone Number [facility] [address] [place] [address], [facility] [phone] * (ABNORMAL) GLUCOSE - POINT OF CARE (11/10/2022 11:28 PM CDT) [facility] Glucose WB/POC 117(H) 70 - 115 mg/dL 11/10/2022 11:33 PM CDT [facility] Specimen Type Cap Fingerstick 2022 11:33 PM [facility] Blood BLOOD SPECIMEN / Unknown 11/10/2022 11:28 PM CDT 11/10/2022 11:32 PM CDT Good Antunez MD LAB - POINT OF CARE ORDERABLES [facility] [address] [place] [address], [facility] [phone] * (ABNORMAL) CBC W AUTO DIFFERENTIAL (11/10/2022 2:24 AM CDT) WBC 3.6 3.5 - 10.5 10? 3 /uL 11/10/2022 2:57 AM [facility] RBC 3.23(L) 3.80 - 5.20 10? 6 /uL 11/10/2022 2:57 AM [facility] Hemoglobin 9.4(L) 12.0 - 15.6 g/dL 11/10/2022 2:57 AM [facility] Hematocrit 29.4(L) 35.0 - 45.0 % 11/10/2022 2:57 AM [facility] MCV 91.0 80.7 - 98.3 fL 11/10/2022 2:57 AM [facility] MCH 29.1 26.7 - 34.0 pg 11/10/2022 2:57 AM [facility] MCHC 32.0 30.8 - 35.9 g/dL 11/10/2022 2:57 AM [facility] RDW-SD 47.3 36.0 - 50.0 fL 11/10/2022 2:57 AM [facility] RDW-CV 14.3 11.2 - 14.8 % 11/10/2022 2:57 AM [facility] Platelet Count 302 150 - 400 10? 3 /uL 11/10/2022 2:57 AM [facility] MPV 10.9 9.4 - 12.9 fL 11/10/2022 2:57 AM [facility] nRBC Absolute 0.00 0 10? 3 /uL 11/10/2022 2:57 AM [facility] nRBC Auto 0.0 0 /100 WBC 11/10/2022 2:57 AM [facility] Neutrophils % 64.8 35.0 - 70.0 % 11/10/2022 2:57 AM [facility] Lymphocytes % 23.7 20.0 - 43.0 % 11/10/2022 2:57 AM [facility] Monocytes % 8.4 5.0 - 13.0 % 11/10/2022 2:57 AM [facility] Eosinophils % 1.4 0.0 - 6.0 % 11/10/2022 2:57 AM [facility] Basophil % 0.3 0.0 - 2.0 % 11/10/2022 2:57 AM [facility] Neutrophils Absolute 2.32 1.60 - 7.00 10? 3 /uL 11/10/2022 2:57 AM [facility] Lymphocyte Absolute 0.85(L) 1.10 - 3.90 10? 3 /uL 11/10/2022 2:57 AM [facility] Monocytes Absolute 0.30 0.26 - 1.07 10? 3 /uL 11/10/2022 2:57 AM [facility] Eosinophils Absolute 0.05 0.00 - 0.47 10? 3 /uL 11/10/2022 2:57 AM [facility] Basophils Absolute 0.01 0.00 - 0.08 10? 3 /uL 11/10/2022 2:57 AM [facility] Immature Granulocytes % 1.4(H) 0.0 - 1.0 % 11/10/2022 2:57 AM [facility] Immature Granulocytes Absolute 0.05 11/10/2022 2:57 AM [facility] Blood BLOOD SPECIMEN / Unknown Lab Venipuncture / Unknown 11/10/2022 2:24 AM CDT 11/10/2022 2:39 AM T Emir Vail MD LAB - HEMATOLOGY ORD ERABLES [facility] [address] [place] [address], [facility] [phone] * (ABNORMAL) PT-INR [facility] (11/10/2022 2:23 AM CDT) PT 20.5(H) 12.1 - 14.8 Seconds 11/10/2022 2:54 AM T [facility] INR 1.8 See Comment 11/10/2022 2:54 AM [facility] Comment:The suggested therap eutic range for standard coumadin (warfarin) therapy is an INR of 2.0-3.0. For high-risk patients (Mechanical Mitral Valve Prosthesis, etc.), the suggested prophylactic therapeutic range is an INR of 2.5-3.5. Blood BLOOD SPECIMEN / Unknown Lab Venipuncture / Unknown 11/10/2022 2:23 AM CDT 11/10/2022 2:29 AM CDT Emir Vail MD LAB - COAGULATION OR DERABLES Performing Organization Address [facility] Co de Phone Number [facility] [address] [place] [address] [phone] * (ABNORMAL) BASIC METABOLIC PANEL (CALCIUM TOTAL) (11/10/2022 2:23 AM CDT) Pathologist [facility] BUN 13 7 - 26 mg/dL 11/10/2022 3:12 AM [facility] Creatinine 0.52(L) 0.56 - 0.96 mg/dL 11/10/2022 3:12 AM [facility] Sodium 136 136 - 145 mmol/L 11/10/2022 3:12 AM [facility] Potassium 3.6 3.5 - 4.5 mmol/L 11/10/2022 3:12 AM [facility] Chloride 105 98 - 107 mmol/L 11/10/2022 3:12 AM [facility] CO2 24 22 - 29 mmol/L 11/10/2022 3:12 AM [facility] Glucose 120(H) 70 - 115 mg/dL 11/10/2022 3:12 AM [facility] Calcium 8.4 8.4 - 10.2 mg/dL 11/10/2022 3:12 AM [facility] Anion Gap 11 8 - 18 11/10/2022 3:12 AM CDT [facility] BUN/Creatinine Ratio 25(H) 7 - 23 11/10/2022 3:12 AM CDT [facility] Osmolality Calculated 283 270 - 300 mOsm/kg 11/10/2022 3:12 AM CDT [facility] eGFR by CKD-EPI >90 >=90 mL/min/1.7 3 m2 11/10/2022 3:12 AM CDT [facility] Blood BLOOD SPECIMEN / Unknown Lab Venipuncture / Unknown 11/10/2022 2:23 AM CDT 11/10/2022 2:39 AM CDT Emir Vail MD LAB - CHEMISTRY BIBIANA BLACKMAN [facility] [address] [place] [address], [facility] [phone] * PHOSPHORUS BLOOD (11/10/2022 2:23 AM CDT) Phosphorus 3.9 2.9 - 5.1 mg/dL 11/10/2022 3:12 AM CDT [facility] Blood BLOOD SPECIMEN / Unknown Lab Venipuncture / Unknown 11/10/2022 2:23 AM CDT 11/10/2022 2:39 AM CDT Emir Vail MD LAB - CHEMISTRY BIBIANA BLACKMAN [facility] [address] [place] [address], [facility] [phone] * MAGNESIUM BLOOD (11/10/2022 2:23 AM CDT) Magnesium 2.0 1.6 - 2.6 mg/dL 11/10/2022 3:12 AM CDT [facility] Blood BLOOD SPECIMEN / Unknown Lab Venipuncture / Unknown 11/10/2022 2:23 AM CDT 11/10/2022 2:39 AM CDT Emir Vail MD LAB - CHEMISTRY BIBIANA BLACKMAN [facility] [address] [place] [address], [facility] [phone] * MRI BRAIN WWO CONTRAST (11/09/2022 11:50 [...] DATE/TIME OF EXAM: ??11/09/2022 11:51 PM, LOCATION ??[facility] INDICATION: R50.9: Fever, unspecified fever cause [...] of the right lateral ventricle and the [id number] midline shift. Extensive susceptibility artifacts along the [...] CONTRAST, DATE/TIME OF EXAM: 11/09/2022 11:51PM, LOCATION [facility] INDICATION: R50.9: Fever, unspecified fever cause [...] of the right lateral ventricle and the [id number] midline shift. Extensive susceptibility artifacts along the [...] right lateral ventricle.. There is also small [id number] focus along the right temporal lobe (image [...] 7.3 6.0 - 8.3 g/dL 7:25 AM [facility] Albumin 2.6(L) 3.4 - 5.0 g/dL 11/09/2022 7:25 AM [facility] Bilirubin Total 0.3 0.2 - 1.2 mg/dL 10/12 7:25 AM [facility] Bilirubin Conjugated 0.1 0.1 - 0.5 mg/dL 11/09/2022 7:25 AM [facility] Bilirubin Unconjugated 0.2 Unconjugated Bilirubin is a calculated value: Reference ranges have not been established. mg/dL 11/09/2022 7:25 AM [facility] Alkaline Phosphatase 73 40 - 150 U/L 11/09/2022 7:25 AM [facility] ALT 77(H) 5 - 55 U/L 11/09/2022 7:25 AM [facility] AST 67(H) 5 - 34 U/L 11/09/2022 7:25 AM [facility] Albumin/Globulin Ratio 0.6(L) 1.1 - 2.3 11/09/2022 7:25 AM [facility] Blood BLOOD SPECIMEN / Unknown Lab Venipuncture / Unknown 11/09/2022 6:54 AM CDT 11/09/2022 7:06 AM CDT Angelica Cruz MD LAB - CHEMISTRY BIBIANA BLACKMAN [facility] Organization Address City/[facility] de Phone Number [address] [address] [phone] * VANCOMYCIN LEVEL TROUGH (11/09/2022 6:54 AM CDT) Vancomycin Trough 18.8 10.0 - 20.0 ug/mL 11/09/2022 7:24 AM [facility] Blood BLOOD SPECIMEN / Unknown Lab Venipuncture / Unknown 11/09/2022 6:54 AM CDT 11/09/2022 6:57 AM CDT Narrative [facility] - 11/09/2022 7:24 AM CDT See institution protocol. Jaime Drew MD LAB - CHEMISTRY ORDE HIRAL Performing Organization Address City/[facility]/ZIP Co de Phone Number [address] [address], [facility] [phone] * (ABNORMAL) PT-INR [facility] (11/09/2022 2:37 AM CDT) PT 18.9(H) 12.1 - 14.8 Seconds 11/09/2022 3:05 AM CDT [facility] INR 1.6 See Comment 11/09/2022 3:05 AM T [facility] Comment:The suggested therap eutic range for standard coumadin (warfarin) therapy is an INR of 2.0-3.0. For high-risk patients (Mechanical Mitral Valve Prosthesis, etc.), the suggested prophylactic therapeutic range is an INR of 2.5-3.5. Blood BLOOD SPECIMEN / Unknown Lab Venipuncture / Unknown 11/09/2022 2:37 AM CDT 11/09/2022 2:48 AM CDT Emir Vail MD LAB - COAGULATION OR DERABLES Performing Organization Address City/[facility]/ZIP Co de Phone Number [address] [address], [facility] [phone] * (ABNORMAL) BASIC METABOLIC PANEL (CALCIUM TOTAL) (11/08/2022 11:46 PM CDT) BUN 9 7 - 26 mg/dL 11/09/2022 12:23 AM CDT [facility] Creatinine 0.45(L) 0.56 - 0.96 mg/dL 11/09/2022 12:23 AM T [facility] Sodium 141 136 - 145 mmol/L 11/09/2022 12:23 AM T [facility] Potassium 3.9 3.5 - 4.5 mmol/L 11/09/2022 12:23 AM T [facility] Chloride 107 98 - 107 mmol/L 11/09/2022 12:23 AM T [facility] CO2 24 22 - 29 mmol/L 11/09/2022 12:23 AM [facility] Glucose 107 70 - 115 mg/dL 11/09/2022 12:23 AM [facility] Calcium 8.5 8.4 - 10.2 mg/dL 11/09/2022 12:23 AM [facility] Anion Gap 14 8 - 18 11/09/2022 12:23 AM [facility] BUN/Creatinine Ratio 20 7 - 23 11/09/2022 12:23 AM [facility] Osmolality Calculated 291 270 - 300 mOsm/kg 11/09/2022 12:23 AM [facility] eGFR by CKD-EPI >90 >=90 mL/min/1.7 3 m2 11/09/2022 12:23 AM [facility] Blood BLOOD SPECIMEN / Unknown Lab Venipuncture / Unknown 11/08/2022 11:46 PM CDT 11/08/2022 11:57 PM CDT Emir Vail MD LAB - CHEMISTRY ORDE HIRAL [facility] Organization Address City/State/ZIP Co de Phone Number [facility] [address] [place] [address], [facility] [phone] * (ABNORMAL) CBC W AUTO DIFFERENTIAL (11/08/2022 11:46 PM CDT) WBC 5.2 3.5 - 10.5 10? 3 /uL 11/09/2022 12:10 AM [facility] RBC 3.59(L) 3.80 - 5.20 10? 6 /uL 11/09/2022 12:10 AM [facility] Hemoglobin 10.4(L) 12.0 - 15.6 g/dL 11/09/2022 12:10 AM [facility] Hematocrit 33.1(L) 35.0 - 45.0 % 11/09/2022 12:10 AM [facility] MCV 92.2 80.7 - 98.3 fL 11/09/2022 12:10 AM [facility] MCH 29.0 26.7 - 34.0 pg 11/09/2022 12:10 AM [facility] MCHC 31.4 30.8 - 35.9 g/dL 11/09/2022 12:10 AM [facility] RDW-SD 48.2 36.0 - 50.0 fL 11/09/2022 12:10 AM [facility] RDW-CV 14.2 11.2 - 14.8 % 11/09/2022 12:10 AM [facility] Platelet Count 360 150 - 400 10? 3 /uL 11/09/2022 12:10 AM [facility] MPV 10.7 9.4 - 12.9 fL 11/09/2022 12:10 AM [facility] nRBC Absolute 0.00 0 10? 3 /uL 11/09/2022 12:10 AM [facility] nRBC Auto 0.0 0 /100 WBC 11/09/2022 12:10 AM [facility] Neutrophils % 58.8 35.0 - 70.0 % 11/09/2022 12:10 AM [facility] Lymphocytes % 24.8 20.0 - 43.0 % 11/09/2022 12:10 AM [facility] Monocytes % 12.1 5.0 - 13.0 % 11/09/2022 12:10 AM [facility] Eosinophils % 2.9 0.0 - 6.0 % 11/09/2022 12:10 AM [facility] Basophil % 0.4 0.0 - 2.0 % 11/09/2022 12:10 AM [facility] Neutrophils Absolute 3.07 1.60 - 7.00 10? 3 /uL 11/09/2022 12:10 AM [facility] Lymphocyte Absolute 1.29 1.10 - 3.90 10? 3 /uL 11/09/2022 12:10 AM [facility] Monocytes Absolute 0.63 0.26 - 1.07 10? 3 /uL 11/09/2022 12:10 AM [facility] Eosinophils Absolute 0.15 0.00 - 0.47 10? 3 /uL 11/09/2022 12:10 AM [facility] Basophils Absolute 0.02 0.00 - 0.08 10? 3 /uL 11/09/2022 12:10 AM CDT [facility] Immature Granulocytes % 1.0 0.0 - 1.0 % 11/09/2022 12:10 AM CDT [facility] Immature Granulocytes Absolute 0.05 11/09/2022 12:10 AM CDT [facility] Blood BLOOD SPECIMEN / Unknown Lab Venipuncture / Unknown 11/08/2022 11:46 PM CDT 11/08/2022 11:57 PM CDT Emir Vail MD LAB - HEMATOLOGY ORD ERAJESSE [address] [address], [place] [phone] * PHOSPHORUS BLOOD (11/08/2022 11:46 PM CDT) Phosphorus 3.8 2.9 - 5.1 mg/dL 11/09/2022 12:23 AM CDT [facility] Blood BLOOD SPECIMEN / Unknown Lab Venipuncture / Unknown 11/08/2022 11:46 PM CDT 11/08/2022 11:57 PM CDT Emir Vail MD LAB - CHEMISTRY BIBIANA BLACKMAN Performing Organization Address City/[facility]/ZIP Co de Phone Number [address] [address], [place] [phone] * MAGNESIUM BLOOD (11/08/2022 11:46 PM CDT) Magnesium 2.0 1.6 - 2.6 mg/dL 11/09/2022 12:23 AM CDT [facility] Blood BLOOD SPECIMEN / Unknown Lab Venipuncture / Unknown 11/08/2022 11:46 PM CDT 11/08/2022 11:57 PM CDT Emir Vail MD LAB - CHEMISTRY BIBIANA BLACKMAN [address] [address], [place] [phone] * VAS BILATERAL VENOUS DUPLEX LE (11/08/2022 [...] VASCULAR LAB ORDERAB LES * (ABNORMAL) PT-INR [facility] (11/08/2022 2:54 AM CDT) PT 18.3(H) 12.1 - 14.8 Seconds 11/08/2022 4:34 AM CDT [facility] INR 1.6 See Comment 11/08/2022 4:34 AM CDT [facility] Comment:The suggested therap eutic range for standard coumadin (warfarin) therapy is an INR of 2.0-3.0. For high-risk patients (Mechanical Mitral Valve Prosthesis, etc.), the suggested prophylactic therapeutic range is an INR of 2.5-3.5. Blood BLOOD SPECIMEN / Unknown Lab Venipuncture / Unknown 11/08/2022 2:54 AM CDT 11/08/2022 3:41 AM CDT Emir Vail MD LAB - COAGULATION OR DERABLES [facility] [address] [place] [address], [facility] [phone] * (ABNORMAL) BASIC METABOLIC PANEL (CALCIUM TOTAL) (11/07/2022 10:34 PM CDT) BUN 8 7 - 26 mg/dL 11/08/2022 12:05 AM [facility] Creatinine 0.53(L) 0.56 - 0.96 mg/dL 11/08/2022 12:05 AM [facility] Sodium 141 136 - 145 mmol/L 11/08/2022 12:05 AM [facility] Potassium 3.6 3.5 - 4.5 mmol/L 11/08/2022 12:05 AM [facility] Chloride 108(H) 98 - 107 mmol/L 11/08/2022 12:05 AM [facility] CO2 22 22 - 29 mmol/L 11/08/2022 12:05 AM [facility] Glucose 107 70 - 115 mg/dL 11/08/2022 12:05 AM [facility] Calcium 8.6 8.4 - 10.2 mg/dL 11/08/2022 12:05 AM [facility] Anion Gap 15 8 - 18 11/08/2022 12:05 AM [facility] BUN/Creatinine Ratio 15 7 - 23 11/08/2022 12:05 AM [facility] Osmolality Calculated 291 270 - 300 mOsm/kg 11/08/2022 12:05 AM [facility] eGFR by CKD-EPI >90 >=90 mL/min/1.7 3 m2 11/08/2022 12:05 AM [facility] Blood BLOOD SPECIMEN / Unknown Lab Venipuncture / Unknown 11/07/2022 10:34 PM CDT 11/07/2022 11:34 PM CDT Emir Vail MD LAB - CHEMISTRY BIBIANA BLACKMAN [facility] Organization Address City/State/ZIP Co de Phone Number [address] [address], [facility] [phone] * (ABNORMAL) CBC W AUTO DIFFERENTIAL (11/07/2022 10:34 PM CDT) Pathologist [facility] WBC 4.7 3.5 - 10.5 10? 3 /uL 11/07/2022 11:51 PM [facility] RBC 3.18(L) 3.80 - 5.20 10? 6 /uL 11/07/2022 11:51 PM [facility] Hemoglobin 9.2(L) 12.0 - 15.6 g/dL 11/07/2022 11:51 PM [facility] Hematocrit 29.5(L) 35.0 - 45.0 % 11/07/2022 11:51 PM [facility] MCV 92.8 80.7 - 98.3 fL 11/07/2022 11:51 PM [facility] MCH 28.9 26.7 - 34.0 pg 11/07/2022 11:51 PM [facility] MCHC 31.2 30.8 - 35.9 g/dL 11/07/2022 11:51 PM [facility] RDW-SD 47.8 36.0 - 50.0 fL 11/07/2022 11:51 PM [facility] RDW-CV 14.1 11.2 - 14.8 % 11/07/2022 11:51 PM [facility] Platelet Count 325 150 - 400 10? 3 /uL 11/07/2022 11:51 PM [facility] MPV 11.0 9.4 - 12.9 fL 11/07/2022 11:51 PM [facility] nRBC Absolute 0.00 0 10? 3 /uL 11/07/2022 11:51 PM [facility] nRBC Auto 0.0 0 /100 WBC 11/07/2022 11:51 PM [facility] Neutrophils % 57.5 35.0 - 70.0 % 11/07/2022 11:51 PM [facility] Lymphocytes % 29.9 20.0 - 43.0 % 11/07/2022 11:51 PM [facility] Monocytes % 10.7 5.0 - 13.0 % 11/07/2022 11:51 PM [facility] Eosinophils % 1.3 0.0 - 6.0 % 11/07/2022 11:51 PM [facility] Basophil % 0.2 0.0 - 2.0 % 11/07/2022 11:51 PM CDT [facility] Neutrophils Absolute 2.70 1.60 - 7.00 10? 3 /uL 11/07/2022 11:51 PM CDT [facility] Lymphocyte Absolute 1.40 1.10 - 3.90 10? 3 /uL 11/07/2022 11:51 PM CDT [facility] Monocytes Absolute 0.50 0.26 - 1.07 10? 3 /uL 11/07/2022 11:51 PM CDT [facility] Eosinophils Absolute 0.06 0.00 - 0.47 10? 3 /uL 11/07/2022 11:51 PM CDT [facility] Basophils Absolute 0.01 0.00 - 0.08 10? 3 /uL 11/07/2022 11:51 PM CDT [facility] Immature Granulocytes % 0.4 0.0 - 1.0 % 11/07/2022 11:51 PM CDT [facility] Immature Granulocytes Absolute 0.02 11/07/2022 11:51 PM CDT [facility] Blood BLOOD SPECIMEN / Unknown Lab Venipuncture / Unknown 11/07/2022 10:34 PM CDT 11/07/2022 11:34 PM CDT Emir Vail MD LAB - HEMATOLOGY ORD JINBLES [address] [address], [facility] [phone] * PHOSPHORUS BLOOD (11/07/2022 10:34 PM CDT) Phosphorus 4.3 2.9 - 5.1 mg/dL 11/08/2022 12:05 AM CDT [facility] Blood BLOOD SPECIMEN / Unknown Lab Venipuncture / Unknown 11/07/2022 10:34 PM CDT 11/07/2022 11:34 PM CDT Emir Vail MD LAB - CHEMISTRY ORDDanyelle BLACKMAN [address] [address], [place] [phone] * (ABNORMAL) MAGNESIUM BLOOD (11/07/2022 10:34 PM CDT) Magnesium 2.8(H) 1.6 - 2.6 mg/dL 11/08/2022 12:05 AM CDT [facility] Blood BLOOD SPECIMEN / Unknown Lab Venipuncture / Unknown 11/07/2022 10:34 PM CDT 11/07/2022 11:34 PM CDT Emir Vail MD LAB - CHEMISTRY ORDE HIRAL [facility] Organization Address City/State/ZIP Co de Phone Number [facility] [address] [place] [address], [facility] [phone] * CT ANGIO CHEST PULM EMBOLISM (11/07/2022 5:22 PM CDT) Anatomical Region Laterality Modality Chest Computed Tomogra phy 11/07/2022 5:34 PM CDT Impressions 11/07/2022 10:30 PM CDT Impression: 1.No evidence of acute pulmonary embolism. There is no radiographic evidence of right heart strain. 2.No other acute process within the chest. > Dictated by Tim Major MD (residential program director). I, Alexx Lopez have personally reviewed and interpreted this examination/study. > Interpreting Provider: Alexx Lopez on 11/07/2022 10:30 PM Narrative 11/07/2022 10:30 PM CDT PROCEDURE: ??CT ANGIO CHEST PULM EMBOLISM, DATE/TIME OF EXAM: ??11/07/2022 5:25 PM, LOCATION ??[facility] INDICATION: R50.9: Fever, unspecified fever cause [...] DATE/TIME OF EXAM: 11/07/2022 5:25 PM, LOCATION [facility] INDICATION: R50.9: Fever, unspecified fever cause [...] > Dictated by Tim Major MD (residential program director). IAlexx have personally reviewed and interpreted this examination/study. > Interpreting Provider: Alexx Lopez on 11/07/2022 10:30 PM Jaime Drew MD CT ORDERABLES * (ABNORMAL) PT-INR [facility] (11/07/2022 3:05 AM CDT) PT 18.4(H) 12.1 - 14.8 Seconds 11/07/2022 4:26 AM CDT [facility] INR 1.6 See Comment 11/07/2022 4:26 AM CDT [facility] Comment:The suggested therap eutic range for standard coumadin (warfarin) therapy is an INR of 2.0-3.0. For high-risk patients (Mechanical Mitral Valve Prosthesis, etc.), the suggested prophylactic therapeutic range is an INR of 2.5-3.5. Blood BLOOD SPECIMEN / Unknown Lab Venipuncture / Unknown 11/07/2022 3:05 AM CDT 11/07/2022 3:51 AM CDT Emir Vail MD LAB - COAGULATION OR DERABLES Performing Organization Address City/[facility]/ZIP Co de Phone Number [address] [address], [place] [phone] * (ABNORMAL) PTT [facility] (11/06/2022 11:12 PM CDT) APTT 63.4(H) 23.0 - 38.4 Seconds 11/07/2022 12:00 AM CDT [facility] Comment:Suggested therapeuti c range for full dose I.V. unfractionated heparin therapy for venous thromboembolism is 71 to 109 seconds. Blood BLOOD SPECIMEN / Unknown Lab Venipuncture / Unknown 11/06/2022 11:12 PM CDT 11/06/2022 11:42 PM CDT Jaime Drew MD LAB - COAGULATION OR DERABLES [address] [address], [place] [phone] * (ABNORMAL) BASIC METABOLIC PANEL (CALCIUM TOTAL) (11/06/2022 11:12 PM CDT) Pathologist [facility] BUN 8 7 - 26 mg/dL 11/07/2022 12:13 AM [facility] Creatinine 0.46(L) 0.56 - 0.96 mg/dL 11/07/2022 12:13 AM [facility] Sodium 140 136 - 145 mmol/L 11/07/2022 12:13 AM [facility] Potassium 3.6 3.5 - 4.5 mmol/L 11/07/2022 12:13 AM [facility] Chloride 108(H) 98 - 107 mmol/L 11/07/2022 12:13 AM [facility] CO2 22 22 - 29 mmol/L 11/07/2022 12:13 AM [facility] Glucose 107 70 - 115 mg/dL 11/07/2022 12:13 AM [facility] Calcium 8.5 8.4 - 10.2 mg/dL 11/07/2022 12:13 AM [facility] Anion Gap 14 8 - 18 11/07/2022 12:13 AM [facility] BUN/Creatinine Ratio 17 7 - 23 11/07/2022 12:13 AM [facility] Osmolality Calculated 289 270 - 300 mOsm/kg 11/07/2022 12:13 AM [facility] eGFR by CKD-EPI >90 >=90 mL/min/1.7 3 m2 11/07/2022 12:13 AM [facility] Blood BLOOD SPECIMEN / Unknown Lab Venipuncture / Unknown 11/06/2022 11:12 PM CDT 11/06/2022 11:44 PM CDT Emir Vail MD LAB - CHEMISTRY BIBIANA BLACKMAN [facility] Organization Address City/State/ZIP Co de Phone Number [facility] [address] [place] [phone], [facility] [phone] * (ABNORMAL) CBC W AUTO DIFFERENTIAL (11/06/2022 11:12 PM CDT) Pathologist [facility] WBC 4.7 3.5 - 10.5 10? 3 /uL 11/06/2022 11:51 PM [facility] RBC 3.20(L) 3.80 - 5.20 10? 6 /uL 11/06/2022 11:51 PM [facility] Hemoglobin 9.3(L) 12.0 - 15.6 g/dL 11/06/2022 11:51 PM [facility] Hematocrit 29.5(L) 35.0 - 45.0 % 11/06/2022 11:51 PM [facility] MCV 92.2 80.7 - 98.3 fL 11/06/2022 11:51 PM [facility] MCH 29.1 26.7 - 34.0 pg 11/06/2022 11:51 PM [facility] MCHC 31.5 30.8 - 35.9 g/dL 11/06/2022 11:51 PM [facility] RDW-SD 47.7 36.0 - 50.0 fL 11/06/2022 11:51 PM [facility] RDW-CV 14.1 11.2 - 14.8 % 11/06/2022 11:51 PM [facility] Platelet Count 195 150 - 400 10? 3 /uL 11/06/2022 11:51 PM [facility] MPV 11.8 9.4 - 12.9 fL 11/06/2022 11:51 PM [facility] nRBC Absolute 0.00 0 10? 3 /uL 11/06/2022 11:51 PM [facility] nRBC Auto 0.0 0 /100 WBC 11/06/2022 11:51 PM [facility] Neutrophils % 47.0 35.0 - 70.0 % 11/06/2022 11:51 PM [facility] Lymphocytes % 36.7 20.0 - 43.0 % 11/06/2022 11:51 PM [facility] Monocytes % 11.9 5.0 - 13.0 % 11/06/2022 11:51 PM [facility] Eosinophils % 3.2 0.0 - 6.0 % 11/06/2022 11:51 PM [facility] Basophil % 0.4 0.0 - 2.0 % 11/06/2022 11:51 PM [facility] Neutrophils Absolute 2.21 1.60 - 7.00 10? 3 /uL 11/06/2022 11:51 PM CDT [facility] Lymphocyte Absolute 1.73 1.10 - 3.90 10? 3 /uL 11/06/2022 11:51 PM CDT [facility] Monocytes Absolute 0.56 0.26 - 1.07 10? 3 /uL 11/06/2022 11:51 PM CDT [facility] Eosinophils Absolute 0.15 0.00 - 0.47 10? 3 /uL 11/06/2022 11:51 PM CDT [facility] Basophils Absolute 0.02 0.00 - 0.08 10? 3 /uL 11/06/2022 11:51 PM CDT [facility] Immature Granulocytes % 0.8 0.0 - 1.0 % 11/06/2022 11:51 PM CDT [facility] Immature Granulocytes Absolute 0.04 11/06/2022 11:51 PM CDT [facility] Blood BLOOD SPECIMEN / Unknown Lab Venipuncture / Unknown 11/06/2022 11:12 PM CDT 11/06/2022 11:44 PM CDT Emir Vail MD LAB - HEMATOLOGY [facility] [address] [address], [place] [phone] * PHOSPHORUS BLOOD (11/06/2022 11:12 PM CDT) Phosphorus 4.3 2.9 - 5.1 mg/dL 11/07/2022 12:13 AM CDT [facility] Blood BLOOD SPECIMEN / Unknown Lab Venipuncture / Unknown 11/06/2022 11:12 PM CDT 11/06/2022 11:44 PM CDT Emir Vail MD LAB - CHEMISTRY [facility] [address] [address], [place] [phone] * MAGNESIUM BLOOD (11/06/2022 11:12 PM CDT) Magnesium 2.0 1.6 - 2.6 mg/dL 11/07/2022 12:13 AM CDT [facility] Blood BLOOD SPECIMEN / Unknown Lab Venipuncture / Unknown 11/06/2022 11:12 PM CDT 11/06/2022 11:44 PM CDT Emir Vail MD LAB - CHEMISTRY [place] [facility] [address] [place] [address], [place] [phone] * (ABNORMAL) PTT [facility] (11/06/2022 6:30 PM CDT) Pathologist [facility] APTT 68.6(H) 23.0 - 38.4 Seconds 11/06/2022 7:03 PM CDT [facility] Comment:Suggested therapeuti c range for full dose I.V. unfractionated heparin therapy for venous thromboembolism is 71 to 109 seconds. Blood BLOOD SPECIMEN / Unknown Lab Venipuncture / Unknown 11/06/2022 6:30 PM CDT 11/06/2022 6:33 PM CDT Jaime Drew MD LAB - COAGULATION OR DERABLES Performing Organization Address City/[facility]/ZIP Co de Phone Number [facility] [address] [place] [id number], [place] [phone] * ECHO COMPLETE W CONTRAST (11/06/2022 1:49 PM CDT) BSA [id number] m2 [facility] FUJ I PACS LV [...] PACS MV E/e' lateral 7.262 [facility] TR pk arianna 224.0 cm/s [facility] I PACS LVOT pk arianna 0.91 m/s [...] 3.2 2.5 - 4.1 cm [facility] P[facility] RV-mahmood longitudinal diam 8.8 5.9 - 8.3 cm [facility] FUJI PACS RVIDd 3.0 cm [facility] I PACS RVOT VTI 17.595 cm [facility] I PACS TAPSE 2.324 1.7 cm [facility] I PACS RVOT pk arianna 0.85 m/s [facility] F UJI PACS RA area 19.252 cm2 [facility] I PACS AV mn grad 5 mmHg [...] HR 153 [facility] FUJ I PACS [id number] 6.938 cm [facility] FUJ I PACS [id number] 6.869 cm [facility] CV FUJ I PACS [...] CV FUJ I PACS TV pk arianna [phone] cm/s [facility] FUJI PACS TV mn [...] Drew MD ECHO CUPID * (ABNORMAL) PTT [facility] (11/06/2022 7:40 AM CDT) APTT 97.1(H) 23.0 - 38.4 Seconds 11/06/2022 8:29 AM CDT [facility] Comment:Suggested therapeuti c range for full dose I.V. unfractionated heparin therapy for venous thromboembolism is 71 to 109 seconds. Blood BLOOD SPECIMEN / Unknown Lab Venipuncture / Unknown 11/06/2022 7:40 AM CDT 11/06/2022 8:12 AM CDT Jaime Drew MD LAB - COAGULATION OR DERABLES [facility] [address] [place] [id number], [facility] [phone] * (ABNORMAL) PT-INR [facility] (11/06/2022 1:36 AM CDT) PT 17.1(H) 12.1 - 14.8 Seconds 11/06/2022 1:58 AM CDT [facility] INR 1.4 See Comment 11/06/2022 1:58 AM CDT [facility] Comment:The suggested therap eutic range for standard coumadin (warfarin) therapy is an INR of 2.0-3.0. For high-risk patients (Mechanical Mitral Valve Prosthesis, etc.), the suggested prophylactic therapeutic range is an INR of 2.5-3.5. Blood BLOOD SPECIMEN / Unknown Venipuncture / Unknown 11/06/2022 1:36 AM CDT 11/06/2022 1:39 AM CDT Emir Vail MD LAB - COAGULATION OR DERABLES Performing Organization Address [facility] Co de Phone Number [address] [address], [facility] [phone] * (ABNORMAL) PTT [facility] (11/06/2022 1:36 AM CDT) APTT 100.4(HH) 23.0 - 38.4 Seconds 11/06/2022 1:58 AM CDT [facility] Comment:Suggested therapeuti c range for full dose I.V. unfractionated heparin therapy for venous thromboembolism is 71 to 109 seconds. Blood BLOOD SPECIMEN / Unknown Venipuncture / Unknown 11/06/2022 1:36 AM CDT 11/06/2022 1:39 AM CDT Jaime Drew MD LAB - COAGULATION OR DERABLES Performing Organization Address [facility] Co de Phone Number [address] [address], [facility] [phone] * (ABNORMAL) BASIC METABOLIC PANEL (CALCIUM TOTAL) (11/06/2022 1:36 AM CDT) BUN 8 7 - 26 mg/dL 11/06/2022 2:10 AM T [facility] Creatinine 0.56 0.56 - 0.96 mg/dL 11/06/2022 2:10 AM T [facility] Sodium 139 136 - 145 mmol/L 11/06/2022 2:10 AM T [facility] Potassium 3.5 3.5 - 4.5 mmol/L 11/06/2022 2:10 AM [facility] Chloride 111(H) 98 - 107 mmol/L 11/06/2022 2:10 AM [facility] CO2 21(L) 22 - 29 mmol/L 11/06/2022 2:10 AM [facility] Glucose 144(H) 70 - 115 mg/dL 11/06/2022 2:10 AM [facility] Calcium 8.3(L) 8.4 - 10.2 mg/dL 11/06/2022 2:10 AM [facility] Anion Gap 11 8 - 18 11/06/2022 2:10 AM [facility] BUN/Creatinine Ratio 14 7 - 23 11/06/2022 2:10 AM [facility] Osmolality Calculated 289 270 - 300 mOsm/kg 11/06/2022 2:10 AM [facility] eGFR by CKD-EPI >90 >=90 mL/min/1.7 3 m2 11/06/2022 2:10 AM [facility] Blood BLOOD SPECIMEN / Unknown Venipuncture / Unknown 11/06/2022 1:36 AM CDT 11/06/2022 1:42 AM CDT Emir Vail MD LAB - CHEMISTRY [facility] Organization Address City/State/ZIP Co de Phone Number [facility] [address] [place] [address], [facility] [phone] * (ABNORMAL) CBC W AUTO DIFFERENTIAL (11/06/2022 1:36 AM CDT) WBC 6.5 3.5 - 10.5 10? 3 /uL 11/06/2022 1:52 AM T [facility] RBC 3.42(L) 3.80 - 5.20 10? 6 /uL 11/06/2022 1:52 AM [facility] Hemoglobin 10.0(L) 12.0 - 15.6 g/dL 11/06/2022 1:52 AM T [facility] Hematocrit 32.8(L) 35.0 - 45.0 % 11/06/2022 1:52 AM [facility] MCV 95.9 80.7 - 98.3 fL 11/06/2022 1:52 AM [facility] MCH 29.2 26.7 - 34.0 pg 11/06/2022 1:52 AM [facility] MCHC 30.5(L) 30.8 - 35.9 g/dL 11/06/2022 1:52 AM [facility] RDW-SD 49.5 36.0 - 50.0 fL 11/06/2022 1:52 AM [facility] RDW-CV 14.2 11.2 - 14.8 % 11/06/2022 1:52 AM [facility] Platelet Count 155 150 - 400 10? 3 /uL 11/06/2022 1:52 AM [facility] MPV 10.9 9.4 - 12.9 fL 11/06/2022 1:52 AM [facility] nRBC Absolute 0.00 0 10? 3 /uL 11/06/2022 1:52 AM [facility] nRBC Auto 0.0 0 /100 WBC 11/06/2022 1:52 AM [facility] Neutrophils % 71.1(H) 35.0 - 70.0 % 11/06/2022 1:52 AM [facility] Lymphocytes % 19.0(L) 20.0 - 43.0 % 11/06/2022 1:52 AM [facility] Monocytes % 8.0 5.0 - 13.0 % 11/06/2022 1:52 AM [facility] Eosinophils % 0.5 0.0 - 6.0 % 11/06/2022 1:52 AM [facility] Basophil % 0.5 0.0 - 2.0 % 11/06/2022 1:52 AM [facility] Neutrophils Absolute 4.65 1.60 - 7.00 10? 3 /uL 11/06/2022 1:52 AM [facility] Lymphocyte Absolute 1.24 1.10 - 3.90 10? 3 /uL 11/06/2022 1:52 AM [facility] Monocytes Absolute 0.52 0.26 - 1.07 10? 3 /uL 11/06/2022 1:52 AM CDT [facility] Eosinophils Absolute 0.03 0.00 - 0.47 10? 3 /uL 11/06/2022 1:52 AM CDT [facility] Basophils Absolute 0.03 0.00 - 0.08 10? 3 /uL 11/06/2022 1:52 AM CDT [facility] Immature Granulocytes % 0.9 0.0 - 1.0 % 11/06/2022 1:52 AM CDT [facility] Immature Granulocytes Absolute 0.06 11/06/2022 1:52 AM CDT [facility] Blood BLOOD SPECIMEN / Unknown Venipuncture / Unknown 11/06/2022 1:36 AM CDT 11/06/2022 1:42 AM CDT Emir Vail MD LAB - HEMATOLOGY ORD ERABLES Performing Organization Address City/[facility]/ZIP Co de Phone Number [address] [address], [facility] [phone] * PHOSPHORUS BLOOD (11/06/2022 1:36 AM CDT) Phosphorus 3.6 2.9 - 5.1 mg/dL 11/06/2022 2:10 AM CDT [facility] Blood BLOOD SPECIMEN / Unknown Venipuncture / Unknown 11/06/2022 1:36 AM CDT 11/06/2022 1:42 AM CDT Emir Vail MD LAB - CHEMISTRY ORDDanyelle BLACKMAN [address] [address], [facility] [phone] * MAGNESIUM BLOOD (11/06/2022 1:36 AM CDT) Magnesium 2.0 1.6 - 2.6 mg/dL 11/06/2022 2:10 AM CDT [facility] Blood BLOOD SPECIMEN / Unknown Venipuncture / Unknown 11/06/2022 1:36 AM CDT 11/06/2022 1:42 AM CDT Emir Vail MD LAB - CHEMISTRY [facility] [address] [address], [facility] [phone] * (ABNORMAL) C-REACTIVE PROTEIN (11/06/2022 1:36 AM CDT) Pathologist [facility] C-Reactive Protein 7.1(H) <=0.5 mg/dL 11/06/2022 2:08 AM CDT [facility] Blood BLOOD SPECIMEN / Unknown Venipuncture / Unknown 11/06/2022 1:36 AM CDT 11/06/2022 1:40 AM CDT Jaime Drew MD LAB - CHEMISTRY [facility] [facility] Performing Organization Address [facility]/ZIP Co de Phone Number [address] [address], [facility] [phone] * (ABNORMAL) CBC W AUTO DIFFERENTIAL (11/06/2022 1:36 AM CDT) Pathologist [facility] WBC 7.9 3.5 - 10.5 10? 3 /uL 11/06/2022 1:45 AM [facility] RBC 3.28(L) 3.80 - 5.20 10? 6 /uL 11/06/2022 1:45 AM [facility] Hemoglobin 9.7(L) 12.0 - 15.6 g/dL 11/06/2022 1:45 AM [facility] Hematocrit 30.2(L) 35.0 - 45.0 % 11/06/2022 1:45 AM [facility] MCV 92.1 80.7 - 98.3 fL 11/06/2022 1:45 AM [facility] MCH 29.6 26.7 - 34.0 pg 11/06/2022 1:45 AM [facility] MCHC 32.1 30.8 - 35.9 g/dL 11/06/2022 1:45 AM [facility] RDW-SD 47.8 36.0 - 50.0 fL 11/06/2022 1:45 AM [facility] RDW-CV 14.2 11.2 - 14.8 % 11/06/2022 1:45 AM [facility] Platelet Count 247 150 - 400 10? 3 /uL 11/06/2022 1:45 AM [facility] MPV 10.7 9.4 - 12.9 fL 11/06/2022 1:45 AM [facility] nRBC Absolute 0.00 0 10? 3 /uL 11/06/2022 1:45 AM [facility] nRBC Auto 0.0 0 /100 WBC 11/06/2022 1:45 AM [facility] Neutrophils % 70.9(H) 35.0 - 70.0 % 11/06/2022 1:45 AM [facility] Lymphocytes % 17.4(L) 20.0 - 43.0 % 11/06/2022 1:45 AM [facility] Monocytes % 9.8 5.0 - 13.0 % 11/06/2022 1:45 AM [facility] Eosinophils % 0.4 0.0 - 6.0 % 11/06/2022 1:45 AM [facility] Basophil % 0.4 0.0 - 2.0 % 11/06/2022 1:45 AM [facility] Neutrophils Absolute 5.62 1.60 - 7.00 10? 3 /uL 11/06/2022 1:45 AM [facility] Lymphocyte Absolute 1.38 1.10 - 3.90 10? 3 /uL 11/06/2022 1:45 AM [facility] Monocytes Absolute 0.78 0.26 - 1.07 10? 3 /uL 11/06/2022 1:45 AM [facility] Eosinophils Absolute 0.03 0.00 - 0.47 10? 3 /uL 11/06/2022 1:45 AM [facility] Basophils Absolute 0.03 0.00 - 0.08 10? 3 /uL 11/06/2022 1:45 AM [facility] Immature Granulocytes % 1.1(H) 0.0 - 1.0 % 11/06/2022 1:45 AM CDT [facility] Immature Granulocytes Absolute 0.09 11/06/2022 1:45 AM CDT [facility] Blood BLOOD SPECIMEN / Unknown Venipuncture / Unknown 11/06/2022 1:36 AM CDT 11/06/2022 1:42 AM CDT Jaime Drew MD LAB - HEMATOLOGY ORD ERABLES Performing Organization Address [facility]/ZIP Co de Phone Number [address] [address], [facility] [phone] * TSH REFLEX FREE T4 (11/06/2022 1:36 AM CDT) Pathologist [facility] TSH 1.682 0.350 - 4.940 uIU/mL 11/06/2022 2:28 AM CDT [facility] Blood BLOOD SPECIMEN / Unknown Venipuncture / Unknown 11/06/2022 1:36 AM CDT 11/06/2022 1:42 AM CDT Jaime Drew MD LAB - CHEMISTRY ORDE RABLES Performing Organization Address [facility] Co de Phone Number [address] [address], [facility] [phone] * (ABNORMAL) D-DIMER (11/06/2022 1:36 AM CDT) D-Dimer Quantitative 2.30(H) <=0.50 mcg/mL FEU 11/06/2022 1:54 AM CDT [facility] Comment: In the absence of clinical [...] - COAGULATION OR DERABLES Performing Organization Address [facility]/State/[facility] Co de Phone Number [facility] [address] [address], [facility] [phone] * XR ABDOMEN KUB PORTABLE (11/05/2022 5:28 PM CDT) Anatomical Region Laterality Modality Abdomen Radiographic Irene ging 11/06/2022 7:14 AM CDT Impressions 11/06/2022 10:30 PM CDT IMPRESSION: Non-obstructive bowel gas pattern. Report dictated by Mc Castro MD, (residential program director). I, Pepe Gonzalez MD have personally reviewed and interpreted this examination/study. > Interpreting Provider: Pepe Gonzalez MD on 11/06/2022 10:30 PM Narrative 11/06/2022 10:30 PM CDT PROCEDURE: ??XR ABDOMEN KUB PORTABLE, DATE/TIME OF EXAM: ??11/05/2022 5:28 PM, LOCATION ??[facility] INDICATION: R50.9: Fever, unspecified fever cause [...] PORTABLE, DATE/TIME OF EXAM: 11/05/2022 5:28PM, LOCATION [facility] INDICATION: R50.9: Fever, unspecified fever cause [...] Report dictated by Mc Castro MD, (residential program director). I, Pepe Gonzalez MD have personally reviewed and interpreted this examination/study. > Interpreting Provider: Pepe Gonzalez MD on 11/06/2022 10:30 PM Jaime Drew MD DIAGNOSTIC IMAGING O RDERABLES * PTT [facility] (11/05/2022 4:58 PM CDT) APTT 27.5 23.0 - 38.4 Seconds 11/05/2022 5:29 PM CDT [facility] Comment:Suggested therapeuti c range for full dose I.V. unfractionated heparin therapy for venous thromboembolism is 71 to 109 seconds. Blood BLOOD SPECIMEN / Unknown Venipuncture / Unknown 11/05/2022 4:58 PM CDT 11/05/2022 5:03 PM CDT Jaime Drew MD LAB - COAGULATION OR DERABLES [facility] [address] [place] [address], [place] [phone] * RESPIRATORY PANEL WITH SARS-COV-2 BY PCR (STL) (11/05/2022 1:10 PM CDT) Pathologist [facility] Adenovirus PCR Not detected Not detected 11/05/2022 [...] PM CDT 11/05/2022 1:41 PM CDT Narrative [facility] - 11/05/2022 5:32 PM CDT This nucleic amplification assay has received FDA authorization via the [employer]. Jaime Drew MD LAB - MICROBIOLOGY O DIONI Performing Organization Address [facility]/ZIP Co de Phone Number [facility] [address] [place] [phone] * CULTURE URINE (11/05/2022 1:07 PM CDT) Culture Urine No growth (<100 CFU/mL) ROSELIA 11/06/2022 4:17 PM CDT [facility] Urine URINE SPECIMEN OBTAINED BY SINGLE CATHETERIZATION OF URINARY BLADDER / Unknown Collection / Unknown 11/05/2022 1:07 PM CDT 11/05/2022 1:41 PM CDT Jaime Drew MD LAB - MICROBIOLOGY O DIONI Performing Organization Address [facility] Co de Phone Number [facility] [address] [place] [address], [facility] [phone] * (ABNORMAL) URINALYSIS REFLEX TO MICROSCOPIC NO CULTURE (11/05/2022 12:54 PM CDT) Color UA Yellow Straw, Yellow 11/05/2022 1:53 PM CDT [facility] Clarity UA Slt Cloudy(A) Clear 11/05/2022 1:53 PM CDT [facility] Specific [place] UA 1.016 1.005 - 1.030 11/05/2022 1:53 PM CDT [facility] pH UA 7.0 5.0 - 8.0 pH 11/05/2022 1:53 PM CDT [facility] Protein UA Negative Negative 11/05/2022 1:53 PM CDT [facility] Glucose UA Negative Negative 11/05/2022 1:53 PM CDT [facility] Ketone UA Negative Negative 11/05/2022 1:53 PM CDT [facility] Bilirubin UA Negative Negative 11/05/2022 1:53 PM CDT [facility] Blood UA 1+(A) Negative 11/05/2022 1:53 PM CDT [facility] Nitrite UA Negative Negative 11/05/2022 1:53 PM CDT [facility] Leukocyte Esterase Negative Negative 11/05/2022 1:53 PM CDT [facility] Urobilinogen UA Negative Negative mg/dL 11/05/2022 1:53 PM CDT [facility] RBC UA 51-100(A) None Seen, 0-2, 3-5 /HPF 11/05/2022 1:53 PM CDT [facility] WBC UA 6-10(A) None Seen, 0-5 /HPF 11/05/2022 1:53 PM CDT [facility] Bacteria UA Trace(A) None /HPF 11/05/2022 1:53 PM CDT [facility] Squamous Epithelial Cells UA 0-2 None Seen, 0-2, 3-5 /HPF 11/05/2022 1:53 PM CDT [facility] Mucus UA 1+ /LPF 11/05/2022 1:53 PM CDT [facility] Amorphous Crystals Rare(A) None /HPF 11/05/2022 1:53 PM CDT [facility] Urine URINE SPECIMEN OBTAINED BY SINGLE CATHETERIZATION OF URINARY BLADDER / Unknown Collection / Unknown 11/05/2022 12:54 PM CDT 11/05/2022 1:41 PM CDT Narrative [facility] - 11/05/2022 1:53 PM CDT Jaime Drew MD LAB - URINALYSIS ORD ERABLES [facility] [address] [place] [address], [facility] [phone] * (ABNORMAL) CBC W AUTO DIFFERENTIAL (11/05/2022 12:27 PM CDT) WBC 6.9 3.5 - 10.5 10? 3 /uL 11/05/2022 1:02 PM CDT [facility] RBC 3.24(L) 3.80 - 5.20 10? 6 /uL 11/05/2022 1:[address] [facility] Hemoglobin 9.7(L) 12.0 - 15.6 g/dL 11/05/2022 1:[address] [facility] Hematocrit 29.6(L) 35.0 - 45.0 % 11/05/2022 1:[address] [facility] MCV 91.4 80.7 - 98.3 fL 11/05/2022 1:[address] [facility] MCH 29.9 26.7 - 34.0 pg 11/05/2022 1:[address] [facility] MCHC 32.8 30.8 - 35.9 g/dL 11/05/2022 1:[address] [facility] RDW-SD 47.6 36.0 - 50.0 fL 11/05/2022 1:[address] [facility] RDW-CV 14.2 11.2 - 14.8 % 11/05/2022 1:[address] [facility] Platelet Count 344 150 - 400 10? 3 /uL 11/05/2022 1:[address] [facility] MPV 10.3 9.4 - 12.9 fL 11/05/2022 1:[address] [facility] nRBC Absolute 0.00 0 10? 3 /uL 11/05/2022 1:[address] [facility] nRBC Auto 0.0 0 /100 WBC 11/05/2022 1:[address] [facility] Neutrophils % 62.1 35.0 - 70.0 % 11/05/2022 1:[address] [facility] Lymphocytes % 22.5 20.0 - 43.0 % 11/05/2022 1:[address] [facility] Monocytes % 13.2(H) 5.0 - 13.0 % 11/05/2022 1:[address] [facility] Eosinophils % 0.9 0.0 - 6.0 % 11/05/2022 1:[address] [facility] Basophil % 0.6 0.0 - 2.0 % 11/05/2022 1:[address] [facility] Neutrophils Absolute 4.27 1.60 - 7.00 10? 3 /uL 11/05/2022 1:02 PM [facility] Lymphocyte Absolute 1.55 1.10 - 3.90 10? 3 /uL 11/05/2022 1:02 PM [facility] Monocytes Absolute 0.91 0.26 - 1.07 10? 3 /uL 11/05/2022 1:02 PM [facility] Eosinophils Absolute 0.06 0.00 - 0.47 10? 3 /uL 11/05/2022 1:02 PM [facility] Basophils Absolute 0.04 0.00 - 0.08 10? 3 /uL 11/05/2022 1:02 PM [facility] Immature Granulocytes % 0.7 0.0 - 1.0 % 11/05/2022 1:02 PM [facility] Immature Granulocytes Absolute 0.05 11/05/2022 1:02 PM [facility] Blood BLOOD SPECIMEN / Unknown Venipuncture / Unknown 11/05/2022 12:27 PM CDT 11/05/2022 12:45 PM CDT Emir Vail MD LAB - HEMATOLOGY ORD ERABLES [facility] [address] [place] [address], [facility] [phone] * (ABNORMAL) BASIC METABOLIC PANEL (CALCIUM TOTAL) (11/05/2022 11:24 AM CDT) BUN 8 7 - 26 mg/dL 11/05/2022 11:56 AM [facility] Creatinine 0.54(L) 0.56 - 0.96 mg/dL 11/05/2022 11:56 AM [facility] Sodium 139 136 - 145 mmol/L 11/05/2022 11:56 AM [facility] Potassium 3.8 3.5 - 4.5 mmol/L 11/05/2022 11:56 AM [facility] Chloride 104 98 - 107 mmol/L 11/05/2022 11:56 AM [facility] CO2 23 22 - 29 mmol/L 11/05/2022 11:56 AM [facility] Glucose 101 70 - 115 mg/dL 11/05/2022 11:56 AM [facility] Calcium 8.5 8.4 - 10.2 mg/dL 11/05/2022 11:56 AM [facility] Anion Gap 16 8 - 18 11/05/2022 11:56 AM [facility] BUN/Creatinine Ratio 15 7 - 23 11/05/2022 11:56 AM [facility] Osmolality Calculated 286 270 - 300 mOsm/kg 11/05/2022 11:56 AM [facility] eGFR by CKD-EPI >90 >=90 mL/min/1.7 3 m2 11/05/2022 11:56 AM [facility] Blood BLOOD SPECIMEN / Unknown Venipuncture / Unknown 11/05/2022 11:24 AM CDT 11/05/2022 11:30 AM CDT Emir Vail MD LAB - CHEMISTRY [facility] BLACK[facility] [address] [address], [facility] [phone] * PHOSPHORUS BLOOD (11/05/2022 11:24 AM CDT) Phosphorus 3.2 2.9 - 5.1 mg/dL 11/05/2022 11:56 AM T [facility] Blood BLOOD SPECIMEN / Unknown Venipuncture / Unknown 11/05/2022 11:24 AM CDT 11/05/2022 11:30 AM CDT Emir Vail MD LAB - CHEMISTRY [place] BLACK[facility] [address] [address], [place] [phone] * MAGNESIUM BLOOD (11/05/2022 11:24 AM CDT) Magnesium 2.0 1.6 - 2.6 mg/dL 11/05/2022 11:56 AM T [facility] Blood BLOOD SPECIMEN / Unknown Venipuncture / Unknown 11/05/2022 11:24 AM CDT 11/05/2022 11:30 AM CDT Emir Vail MD LAB - CHEMISTRY [place] BLACKMAN Performing Organization Address City/[facility]/ZIP Co de Phone Number [address] [address], [place] [phone] * BLOOD GAS ART+LYTES+METAB+COOX POC NOTIF (11/05/2022 11:16 AM CDT) Comment Notification Label Only - See Separate Report 11/05/2022 2:01 PM CDT [facility] Other MISCELLANEOUS SAMPLES / Unknown 11/05/2022 11:16 AM CDT 11/05/2022 12:52 PM CDT Manuel Ramirez MD LAB - BLOOD GASES ORDERABLES Performing Organization Address [facility]/ZIP Co de Phone Number [address] [address], [place] [phone] * (ABNORMAL) PTT [facility] (11/05/2022 11:15 AM CDT) Pathologist [facility] APTT 48.8(H) 23.0 - 38.4 Seconds 11/05/2022 12:12 PM CDT [facility] Comment:Suggested therapeuti c range for full dose I.V. unfractionated heparin therapy for venous thromboembolism is 71 to 109 seconds. Blood BLOOD SPECIMEN / Unknown Lab Venipuncture / Unknown 11/05/2022 11:15 AM CDT 11/05/2022 11:23 AM CDT Jaime Drew MD LAB - COAGULATION OR DERABLES Performing Organization Address City/[facility]/ZIP Co de Phone Number [address] [address], [place] [phone] * CULTURE BLOOD (11/05/2022 10:54 AM CDT) Pathologist [facility] Culture No growth day 5 ROSELIA 11/10/2022 2:00 PM CDT [facility] Blood PERIPHERAL BLOOD / Unknown Venipuncture / Unknown 11/05/2022 10:54 AM CDT 11/05/2022 11:23 AM CDT Jaime Drew MD LAB - MICROBIOLOGY O RDERABLES [facility] [address] [place] [address], [facility] [phone] * XR CHEST 1VW PORTABLE (11/05/2022 9:37 AM CDT) Anatomical Region Laterality Modality Chest Radiographic Irene ging 11/05/2022 12:2 6 PM CDT Narrative 11/05/2022 2:40 PM CDT PROCEDURE: ??XR CHEST 1VW PORTABLE, DATE/TIME OF EXAM: ??11/05/2022 9:38 AM, LOCATION ??[facility] INDICATION: R50.9: Fever, unspecified fever cause ADDITIONAL CLINICAL INFORMATION: Ordering Provider Reason For Exam: ??consolidation COMPARISON: Chest radiograph 10/29/2022. FINDINGS/IMPRESSION: Previously seen feeding tube has been removed. These no confluent consolidation, pleural effusion, or pneumothorax is noted. The cardiomediastinal silhouette is stable. No acute osseous abnormality is noted. Report dictated by Christopher Tobin MD, MD (residential program director). I, HEATHER FREGOSO MD have personally reviewed and interpreted this examination/study. > Interpreting Provider: HEATHER FREGOSO MD on 11/05/2022 2:40 PM Procedure Note Heather Fregoso MD - 11/05/2022 PROCEDURE: XR CHEST 1VW PORTABLE, DATE/TIME OF EXAM: 11/05/2022 9:38AM, LOCATION [facility] INDICATION: R50.9: Fever, unspecified fever cause ADDITIONAL CLINICAL INFORMATION: Ordering Provider Reason For Exam: consolidation COMPARISON: Chest radiograph 10/29/2022. FINDINGS/IMPRESSION: Previously seen feeding tube has been removed. These no confluent consolidation, pleural effusion, or pneumothorax is noted. The cardiomediastinal silhouette is stable. No acute osseous abnormality is noted. Report dictated by Christopher Tobin MD, MD (residential program director). I, HEATHER FREGOSO MD have personally reviewed and interpreted this examination/study. > Interpreting Provider: HEATHER FREGOSO MD on 11/05/2022 2:40 PM Jaime Drew MD DIAGNOSTIC IMAGING O RDERABLES * (ABNORMAL) PTT [facility] (11/05/2022 3:50 AM CDT) APTT 77.4(H) 23.0 - 38.4 Seconds 11/05/2022 4:51 AM CDT [facility] Comment:Suggested therapeuti c range for full dose I.V. unfractionated heparin therapy for venous thromboembolism is 71 to 109 seconds. Blood BLOOD SPECIMEN / Unknown Lab Venipuncture / Unknown 11/05/2022 3:50 AM CDT 11/05/2022 4:35 AM CDT Jaime Drew MD LAB - COAGULATION OR DERABLES [facility] [address] [place] [address], [facility] [phone] * (ABNORMAL) PT-INR [facility] (11/05/2022 3:50 AM CDT) PT 15.5(H) 12.1 - 14.8 Seconds 11/05/2022 4:51 AM CDT [facility] INR 1.3 See Comment 11/05/2022 4:51 AM CDT [facility] Comment:The suggested therap eutic range for standard coumadin (warfarin) therapy is an INR of 2.0-3.0. For high-risk patients (Mechanical Mitral Valve Prosthesis, etc.), the suggested prophylactic therapeutic range is an INR of 2.5-3.5. Blood BLOOD SPECIMEN / Unknown Lab Venipuncture / Unknown 11/05/2022 3:50 AM CDT 11/05/2022 4:35 AM CDT Emir Vail MD LAB - COAGULATION OR DERABLES [facility] [address] [place] [address], [facility] [phone] * CT HEAD WO CONTRAST (11/05/2022 12:11 [...] Walter MD CT ORDERABLES * (ABNORMAL) PTT [facility] (11/04/2022 9:28 PM CDT) APTT 53.3(H) 23.0 - 38.4 Seconds 11/04/2022 9:50 PM CDT [facility] Comment:Suggested therapeuti c range for full dose I.V. unfractionated heparin therapy for venous thromboembolism is 71 to 109 seconds. Blood BLOOD SPECIMEN / Unknown Lab Venipuncture / Unknown 11/04/2022 9:28 PM CDT 11/04/2022 9:32 PM CDT Jim Walter MD LAB - COAGULATION O RDERABLES [facility] [address] [place] [address], [facility] [phone] * (ABNORMAL) BASIC METABOLIC PANEL (CALCIUM TOTAL) (11/04/2022 9:28 PM CDT) Pathologist [facility] BUN 8 7 - 26 mg/dL 11/04/2022 9:57 PM [facility] Creatinine 0.55(L) 0.56 - 0.96 mg/dL 11/04/2022 9:57 PM [facility] Sodium 141 136 - 145 mmol/L 11/04/2022 9:57 PM [facility] Potassium 3.7 3.5 - 4.5 mmol/L 11/04/2022 9:57 PM [facility] Chloride 106 98 - 107 mmol/L 11/04/2022 9:57 PM [facility] CO2 25 22 - 29 mmol/L 11/04/2022 9:57 PM [facility] Glucose 106 70 - 115 mg/dL 11/04/2022 9:57 PM [facility] Calcium 8.3(L) 8.4 - 10.2 mg/dL 11/04/2022 9:57 PM [facility] Anion Gap 14 8 - 18 11/04/2022 9:57 PM [facility] BUN/Creatinine Ratio 15 7 - 23 11/04/2022 9:57 PM [facility] Osmolality Calculated 291 270 - 300 mOsm/kg 11/04/2022 9:57 PM [facility] eGFR by CKD-EPI >90 >=90 mL/min/1.7 3 m2 11/04/2022 9:57 PM [facility] Blood BLOOD SPECIMEN / Unknown Lab Venipuncture / Unknown 11/04/2022 9:28 PM CDT 11/04/2022 9:33 PM CDT Emir Vail MD LAB - CHEMISTRY ORDE HIRAL [facility] Organization Address City/State/ZIP Co de Phone Number [facility] [address] [place] [address], [facility] [phone] * (ABNORMAL) CBC W AUTO DIFFERENTIAL (11/04/2022 9:28 PM CDT) WBC 8.4 3.5 - 10.5 10? 3 /uL 11/04/2022 9:36 PM [facility] RBC 3.73(L) 3.80 - 5.20 10? 6 /uL 11/04/2022 9:36 PM [facility] Hemoglobin 10.9(L) 12.0 - 15.6 g/dL 11/04/2022 9:36 PM [facility] Hematocrit 34.6(L) 35.0 - 45.0 % 11/04/2022 9:36 PM [facility] MCV 92.8 80.7 - 98.3 fL 11/04/2022 9:36 PM [facility] MCH 29.2 26.7 - 34.0 pg 11/04/2022 9:36 PM [facility] MCHC 31.5 30.8 - 35.9 g/dL 11/04/2022 9:36 PM [facility] RDW-SD 47.6 36.0 - 50.0 fL 11/04/2022 9:36 PM [facility] RDW-CV 14.0 11.2 - 14.8 % 11/04/2022 9:36 PM [facility] Platelet Count 383 150 - 400 10? 3 /uL 11/04/2022 9:36 PM [facility] MPV 9.9 9.4 - 12.9 fL 11/04/2022 9:36 PM [facility] nRBC Absolute 0.00 0 10? 3 /uL 11/04/2022 9:36 PM [facility] nRBC Auto 0.0 0 /100 WBC 11/04/2022 9:36 PM [facility] Neutrophils % 62.2 35.0 - 70.0 % 11/04/2022 9:36 PM [facility] Lymphocytes % 22.7 20.0 - 43.0 % 11/04/2022 9:36 PM [facility] Monocytes % 12.8 5.0 - 13.0 % 11/04/2022 9:36 PM [facility] Eosinophils % 0.7 0.0 - 6.0 % 11/04/2022 9:36 PM [facility] Basophil % 0.6 0.0 - 2.0 % 11/04/2022 9:36 PM [facility] Neutrophils Absolute 5.22 1.60 - 7.00 10? 3 /uL 11/04/2022 9:36 PM [facility] Lymphocyte Absolute 1.90 1.10 - 3.90 10? 3 /uL 11/04/2022 9:36 PM [facility] Monocytes Absolute 1.07 0.26 - 1.07 10? 3 /uL 11/04/2022 9:36 PM [facility] Eosinophils Absolute 0.06 0.00 - 0.47 10? 3 /uL 11/04/2022 9:36 PM [facility] Basophils Absolute 0.05 0.00 - 0.08 10? 3 /uL 11/04/2022 9:36 PM [facility] Immature Granulocytes % 1.0 0.0 - 1.0 % 11/04/2022 9:36 PM [facility] Immature Granulocytes Absolute 0.08 11/04/2022 9:36 PM [facility] Blood BLOOD SPECIMEN / Unknown Lab Venipuncture / Unknown 11/04/2022 9:28 PM CDT 11/04/2022 9:33 PM CDT Emir Vail MD LAB - HEMATOLOGY ANKUR COCHRAN [address] [address], [place] [phone] * PHOSPHORUS BLOOD (11/04/2022 9:28 PM CDT) Phosphorus 3.4 2.9 - 5.1 mg/dL 11/04/2022 9:58 PM CDT [facility] Blood BLOOD SPECIMEN / Unknown Lab Venipuncture / Unknown 11/04/2022 9:28 PM CDT 11/04/2022 9:33 PM CDT Emir Vail MD LAB - CHEMISTRY BIBIANA BLACKMAN Performing Organization Address City/[facility]/ZIP Co de Phone Number [address] [address], [place] [phone] * MAGNESIUM BLOOD (11/04/2022 9:28 PM CDT) Magnesium 2.3 1.6 - 2.6 mg/dL 11/04/2022 9:57 PM CDT [facility] Blood BLOOD SPECIMEN / Unknown Lab Venipuncture / Unknown 11/04/2022 9:28 PM CDT 11/04/2022 9:33 PM CDT Emir Vail MD LAB - CHEMISTRY BIB[place]NA BLACKMAN [address] [address], [place] [phone] * (ABNORMAL) PTT [facility] (11/04/2022 4:17 PM CDT) APTT 131.0(HH) 23.0 - 38.4 Seconds 11/04/2022 4:47 PM CDT [facility] Comment:Suggested therapeuti c range for full dose I.V. unfractionated heparin therapy for venous thromboembolism is 71 to 109 seconds. Blood BLOOD SPECIMEN / Unknown Lab Venipuncture / Unknown 11/04/2022 4:17 PM CDT 11/04/2022 4:22 PM CDT Jim Walter MD LAB - COAGULATION O RDERABLES Performing Organization Address City/[facility]/ZIP Co de Phone Number [facility] [address] [place] [address], [place] [phone] * (ABNORMAL) PTT [facility] (11/04/2022 9:31 AM CDT) APTT 53.0(H) 23.0 - 38.4 Seconds 11/04/2022 10:55 AM CDT [facility] Comment:Suggested therapeuti c range for full dose I.V. unfractionated heparin therapy for venous thromboembolism is 71 to 109 seconds. Blood BLOOD SPECIMEN / Unknown Lab Venipuncture / Unknown 11/04/2022 9:31 AM CDT 11/04/2022 10:39 AM CDT Jim Walter MD LAB - COAGULATION O RDERABLES Performing Organization Address [facility]/ZIP Co de Phone Number [address] [address], [place] [phone] * VANCOMYCIN LEVEL TROUGH (11/04/2022 9:31 AM CDT) Vancomycin Trough 15.3 10.0 - 20.0 ug/mL 11/04/2022 11:04 AM CDT [facility] Blood BLOOD SPECIMEN / Unknown Lab Venipuncture / Unknown 11/04/2022 9:31 AM CDT 11/04/2022 10:39 AM CDT Narrative [facility] - 11/04/2022 11:04 AM CDT See institution protocol. Jim Walter MD LAB - CHEMISTRY ORD ERABLES Performing Organization Address City/[facility]/ZIP Co de Phone Number [address] [address], [place] [phone] * PT-INR [facility] (11/04/2022 5:53 AM CDT) PT 14.5 12.1 - 14.8 Seconds 11/04/2022 6:15 AM CDT [facility] INR 1.1 See Comment 11/04/2022 6:15 AM CDT [facility] Comment:The suggested therap eutic range for standard coumadin (warfarin) therapy is an INR of 2.0-3.0. For high-risk patients (Mechanical Mitral Valve Prosthesis, etc.), the suggested prophylactic therapeutic range is an INR of 2.5-3.5. Blood BLOOD SPECIMEN / Unknown Lab Venipuncture / Unknown 11/04/2022 5:53 AM CDT 11/04/2022 5:59 AM CDT Jim Walter MD LAB - COAGULATION O RDERABLES Performing Organization Address City/[facility]/ZIP Co de Phone Number [address] [address], [facility] [phone] * PHOSPHORUS BLOOD (11/04/2022 5:53 AM CDT) Phosphorus 3.8 2.9 - 5.1 mg/dL 11/04/2022 6:34 AM CDT [facility] Blood BLOOD SPECIMEN / Unknown Lab Venipuncture / Unknown 11/04/2022 5:53 AM CDT 11/04/2022 6:05 AM CDT Jim Walter MD LAB - CHEMISTRY ORD ERABLES [address] [address], [facility] [phone] * MAGNESIUM BLOOD (11/04/2022 5:53 AM CDT) Magnesium 2.0 1.6 - 2.6 mg/dL 11/04/2022 6:34 AM CDT [facility] Blood BLOOD SPECIMEN / Unknown Lab Venipuncture / Unknown 11/04/2022 5:53 AM CDT 11/04/2022 6:05 AM CDT Jim Walter MD LAB - CHEMISTRY ORD ERABLES [facility] [address] [place] [address], [facility] [phone] * (ABNORMAL) BASIC METABOLIC PANEL (CALCIUM TOTAL) (11/04/2022 5:53 AM CDT) BUN 9 7 - 26 mg/dL 11/04/2022 6:34 AM [facility] Creatinine 0.56 0.56 - 0.96 mg/dL 11/04/2022 6:34 AM [facility] Sodium 139 136 - 145 mmol/L 11/04/2022 6:34 AM [facility] Potassium 3.6 3.5 - 4.5 mmol/L 11/04/2022 6:34 AM [facility] Chloride 104 98 - 107 mmol/L 11/04/2022 6:34 AM [facility] CO2 25 22 - 29 mmol/L 11/04/2022 6:34 AM [facility] Glucose 133(H) 70 - 115 mg/dL 11/04/2022 6:34 AM [facility] Calcium 8.6 8.4 - 10.2 mg/dL 11/04/2022 6:34 AM [facility] Anion Gap 14 8 - 18 11/04/2022 6:34 AM [facility] BUN/Creatinine Ratio 16 7 - 23 11/04/2022 6:34 AM [facility] Osmolality Calculated 289 270 - 300 mOsm/kg 11/04/2022 6:34 AM [facility] eGFR by CKD-EPI >90 >=90 mL/min/1.7 3 m2 11/04/2022 6:34 AM [facility] Blood BLOOD SPECIMEN / Unknown Lab Venipuncture / Unknown 11/04/2022 5:53 AM CDT 11/04/2022 6:05 AM CDT Jim Walter MD LAB - CHEMISTRY ORD ERABLES Performing Organization Address City/[facility] Co de Phone Number [address] [address], [facility] [phone] * (ABNORMAL) PTT [facility] (11/04/2022 5:53 AM CDT) APTT 96.7(H) 23.0 - 38.4 Seconds 11/04/2022 6:15 AM CDT [facility] Comment:Suggested therapeuti c range for full dose I.V. unfractionated heparin therapy for venous thromboembolism is 71 to 109 seconds. Blood BLOOD SPECIMEN / Unknown Lab Venipuncture / Unknown 11/04/2022 5:53 AM CDT 11/04/2022 5:59 AM CDT Jim Walter MD LAB - COAGULATION O RDERABLES Performing Organization Address [facility] Co de Phone Number [address] [address], [facility] [phone] * PT-INR [facility] (11/03/2022 11:53 PM CDT) PT 14.2 12.1 - 14.8 Seconds 11/04/2022 12:45 AM CDT [facility] INR 1.1 See Comment 11/04/2022 12:45 AM CDT [facility] Comment:The suggested therap eutic range for standard coumadin (warfarin) therapy is an INR of 2.0-3.0. For high-risk patients (Mechanical Mitral Valve Prosthesis, etc.), the suggested prophylactic therapeutic range is an INR of 2.5-3.5. Blood BLOOD SPECIMEN / Unknown Venipuncture / Unknown 11/03/2022 11:53 PM CDT 11/04/2022 12:00 AM CDT Emir Vail MD LAB - COAGULATION OR DERABLES Performing Organization Address [facility]/ZIP Co de Phone Number [address] [address], [facility] [phone] * (ABNORMAL) PTT [facility] (11/03/2022 11:53 PM CDT) APTT 77.9(H) 23.0 - 38.4 Seconds 11/04/2022 12:45 AM CDT [facility] Comment:Suggested therapeuti c range for full dose I.V. unfractionated heparin therapy for venous thromboembolism is 71 to 109 seconds. Blood BLOOD SPECIMEN / Unknown Venipuncture / Unknown 11/03/2022 11:53 PM CDT 11/04/2022 12:00 AM CDT Jim Walter MD LAB - COAGULATION O DIONI Performing Organization Address City/[facility]/ZIP Co de Phone Number [address] [address], [facility] [phone] * (ABNORMAL) PTT [facility] (11/03/2022 4:26 PM CDT) APTT 58.8(H) 23.0 - 38.4 Seconds 11/03/2022 5:58 PM CDT [facility] Comment:Suggested therapeuti c range for full dose I.V. unfractionated heparin therapy for venous thromboembolism is 71 to 109 seconds. Blood BLOOD SPECIMEN / Unknown Lab Venipuncture / Unknown 11/03/2022 4:26 PM CDT 11/03/2022 5:37 PM CDT Jim Walter MD LAB - COAGULATION Umm WHEATLEY Performing Organization Address City/[facility]/ZIP Co de Phone Number [address] [address], [facility] [phone] * (ABNORMAL) PTT [facility] (11/03/2022 10:48 AM CDT) APTT 84.5(H) 23.0 - 38.4 Seconds 11/03/2022 11:33 AM CDT [facility] Comment:Suggested therapeuti c range for full dose I.V. unfractionated heparin therapy for venous thromboembolism is 71 to 109 seconds. Blood BLOOD SPECIMEN / Unknown Lab Venipuncture / Unknown 11/03/2022 10:48 AM CDT 11/03/2022 10:55 AM CDT Jim Walter MD LAB - COAGULATION O RDERABLES Performing Organization Address City/[facility]/ZIP Co de Phone Number [address] [address], [place] [phone] * (ABNORMAL) GLUCOSE - POINT OF CARE (11/03/2022 5:20 AM CDT) [facility] Glucose WB/POC 126(H) 70 - 115 mg/dL 11/03/2022 4:58 PM CDT [facility] Specimen Type Cap Fingerstick 2022 4:58 PM CDT [facility] Blood BLOOD SPECIMEN / Unknown 11/03/2022 5:20 AM CDT 11/03/2022 4:58 PM CDT Jim Walter MD LAB - POINT OF CARE ORDERABLES Performing Organization Address [facility] Co de Phone Number [address] [address], [place] [phone] * (ABNORMAL) PTT [facility] (11/03/2022 4:49 AM CDT) [facility] APTT 89.3(H) 23.0 - 38.4 Seconds 11/03/2022 5:35 AM CDT [facility] Comment:Suggested therapeuti c range for full dose I.V. unfractionated heparin therapy for venous thromboembolism is 71 to 109 seconds. Blood BLOOD SPECIMEN / Unknown Venipuncture / Unknown 11/03/2022 4:49 AM CDT 11/03/2022 5:04 AM CDT Jim Walter MD LAB - COAGULATION O DIONI Performing Organization Address City/[facility]/ZIP Co de Phone Number [address] [address], [place] [phone] * (ABNORMAL) PT-INR [facility] (11/03/2022 4:49 AM CDT) [facility] PT 15.1(H) 12.1 - 14.8 Seconds 11/03/2022 5:35 AM [facility] INR 1.2 See Comment 11/03/2022 5:35 AM [facility] Comment:The suggested therap eutic range for standard coumadin (warfarin) therapy is an INR of 2.0-3.0. For high-risk patients (Mechanical Mitral Valve Prosthesis, etc.), the suggested prophylactic therapeutic range is an INR of 2.5-3.5. Blood BLOOD SPECIMEN / Unknown Venipuncture / Unknown 11/03/2022 4:49 AM CDT 11/03/2022 5:05 AM CDT Emir Vail MD LAB - COAGULATION OR DERABLES [facility] [address] [place] [address], [facility] [phone] * (ABNORMAL) BASIC METABOLIC PANEL (CALCIUM TOTAL) (11/02/2022 10:21 PM CDT) Pathologist [facility] BUN 11 7 - 26 mg/dL 11/02/2022 11:04 PM [facility] Creatinine 0.55(L) 0.56 - 0.96 mg/dL 11/02/2022 11:04 PM [facility] Sodium 138 136 - 145 mmol/L 11/02/2022 11:04 PM [facility] Potassium 3.9 3.5 - 4.5 mmol/L 11/02/2022 11:04 PM [facility] Chloride 103 98 - 107 mmol/L 11/02/2022 11:04 PM [facility] CO2 23 22 - 29 mmol/L 11/02/2022 11:04 PM [facility] Glucose 101 70 - 115 mg/dL 11/02/2022 11:04 PM [facility] Calcium 8.9 8.4 - 10.2 mg/dL 11/02/2022 11:04 PM [facility] Anion Gap 16 8 - 18 11/02/2022 11:04 PM [facility] BUN/Creatinine Ratio 20 7 - 23 11/02/2022 11:04 PM [facility] Osmolality Calculated 286 270 - 300 mOsm/kg 11/02/2022 11:04 PM [facility] eGFR by CKD-EPI >90 >=90 mL/min/1.7 3 m2 11/02/2022 11:04 PM [facility] Blood BLOOD SPECIMEN / Unknown Venipuncture / Unknown 11/02/2022 10:21 PM CDT 11/02/2022 10:37 PM CDT Emir Vail MD LAB - CHEMISTRY [facility] BLACKMAN [facility] Organization Address City/State/ZIP Co de Phone Number [facility] [address] [place] [address], [facility] [phone] * (ABNORMAL) CBC W AUTO DIFFERENTIAL (11/02/2022 10:21 PM CDT) WBC 13.3(H) 3.5 - 10.5 10? 3 /uL 11/02/2022 10:59 PM [facility] RBC 3.44(L) 3.80 - 5.20 10? 6 /uL 11/02/2022 10:59 PM [facility] Hemoglobin 10.3(L) 12.0 - 15.6 g/dL 11/02/2022 10:59 PM [facility] Hematocrit 32.0(L) 35.0 - 45.0 % 11/02/2022 10:59 PM [facility] MCV 93.0 80.7 - 98.3 fL 11/02/2022 10:59 PM [facility] MCH 29.9 26.7 - 34.0 pg 11/02/2022 10:59 PM [facility] MCHC 32.2 30.8 - 35.9 g/dL 11/02/2022 10:59 PM [facility] RDW-SD 48.5 36.0 - 50.0 fL 11/02/2022 10:59 PM [facility] RDW-CV 14.4 11.2 - 14.8 % 11/02/2022 10:59 PM CDT [facility] Platelet Count 405(H) 150 - 400 10? 3 /uL 11/02/2022 10:59 PM [facility] MPV 10.4 9.4 - 12.9 fL 11/02/2022 10:59 PM [facility] nRBC Absolute 0.00 0 10? 3 /uL 11/02/2022 10:59 PM [facility] nRBC Auto 0.0 0 /100 WBC 11/02/2022 10:59 PM [facility] Neutrophils % 69.8 35.0 - 70.0 % 11/02/2022 10:59 PM [facility] Lymphocytes % 17.3(L) 20.0 - 43.0 % 11/02/2022 10:59 PM [facility] Monocytes % 8.0 5.0 - 13.0 % 11/02/2022 10:59 PM [facility] Eosinophils % 3.4 0.0 - 6.0 % 11/02/2022 10:59 PM [facility] Basophil % 0.5 0.0 - 2.0 % 11/02/2022 10:59 PM [facility] Neutrophils Absolute 9.29(H) 1.60 - 7.00 10? 3 /uL 11/02/2022 10:59 PM [facility] Lymphocyte Absolute 2.30 1.10 - 3.90 10? 3 /uL 11/02/2022 10:59 PM [facility] Monocytes Absolute 1.07 0.26 - 1.07 10? 3 /uL 11/02/2022 10:59 PM [facility] Eosinophils Absolute 0.45 0.00 - 0.47 10? 3 /uL 11/02/2022 10:59 PM [facility] Basophils Absolute 0.06 0.00 - 0.08 10? 3 /uL 11/02/2022 10:59 PM [facility] Immature Granulocytes % 1.0 0.0 - 1.0 % 11/02/2022 10:59 PM [facility] Immature Granulocytes Absolute 0.13 11/02/2022 10:59 PM [facility] Blood BLOOD SPECIMEN / Unknown Venipuncture / Unknown 11/02/2022 10:21 PM CDT 11/02/2022 10:36 PM CDT Emir Vail MD LAB - HEMATOLOGY ANKUR COCHRAN Performing Organization Address City/[facility]/ZIP Co de Phone Number [address] [address], [place] [phone] * PHOSPHORUS BLOOD (11/02/2022 10:21 PM CDT) Phosphorus 4.2 2.9 - 5.1 mg/dL 11/02/2022 11:04 PM CDT [facility] Blood BLOOD SPECIMEN / Unknown Venipuncture / Unknown 11/02/2022 10:21 PM CDT 11/02/2022 10:37 PM CDT Emir Vail MD LAB - CHEMISTRY BIBIANA BLACKMAN Performing Organization Address City/[facility]/ZIP Co de Phone Number [address] [address], [place] [phone] * MAGNESIUM BLOOD (11/02/2022 10:21 PM CDT) Magnesium 1.9 1.6 - 2.6 mg/dL 11/02/2022 11:04 PM CDT [facility] Blood BLOOD SPECIMEN / Unknown Venipuncture / Unknown 11/02/2022 10:21 PM CDT 11/02/2022 10:37 PM CDT Emir Vail MD LAB - CHEMISTRY BIBIANA BLACKMAN [address] [address], [place] [phone] * (ABNORMAL) PTT [facility] (11/02/2022 10:21 PM CDT) APTT 58.3(H) 23.0 - 38.4 Seconds 11/02/2022 11:01 PM CDT [facility] Comment:Suggested therapeuti c range for full dose I.V. unfractionated heparin therapy for venous thromboembolism is 71 to 109 seconds. Blood BLOOD SPECIMEN / Unknown Venipuncture / Unknown 11/02/2022 10:21 PM CDT 11/02/2022 10:36 PM CDT Jim Walter MD LAB - COAGULATION O DIONI [facility] [address] [place] [address], [place] [phone] * (ABNORMAL) PTT [facility] (11/02/2022 4:37 PM CDT) APTT 69.8(H) 23.0 - 38.4 Seconds 11/02/2022 5:19 PM CDT [facility] Comment:Suggested therapeuti c range for full dose I.V. unfractionated heparin therapy for venous thromboembolism is 71 to 109 seconds. Blood BLOOD SPECIMEN / Unknown Lab Venipuncture / Unknown 11/02/2022 4:37 PM CDT 11/02/2022 4:52 PM CDT Jim Walter MD LAB - COAGULATION O DIONI Performing Organization Address City/[facility]/ZIP Co de Phone Number [facility] [address] [place] [address], [place] [phone] * (ABNORMAL) PTT [facility] (11/02/2022 11:12 AM CDT) APTT 54.9(H) 23.0 - 38.4 Seconds 11/02/2022 11:57 AM CDT [facility] Comment:Suggested therapeuti c range for full dose I.V. unfractionated heparin therapy for venous thromboembolism is 71 to 109 seconds. Blood BLOOD SPECIMEN / Unknown Lab Venipuncture / Unknown 11/02/2022 11:12 AM CDT 11/02/2022 11:32 AM CDT Jim Walter MD LAB - COAGULATION O DIONI [facility] [address] [place] [address], [place] [phone] * VANCOMYCIN LEVEL TROUGH (11/02/2022 9:17 AM CDT) Pathologist [facility] Vancomycin Trough 13.2 10.0 - 20.0 ug/mL 11/02/2022 10:35 AM CDT [facility] Blood BLOOD SPECIMEN / Unknown Venipuncture / Unknown 11/02/2022 9:17 AM CDT 11/02/2022 9:20 AM CDT Narrative [facility] - 11/02/2022 10:35 AM CDT See institution protocol. Dary Garvey MD LAB - CHEMISTRY BIBIANA BLACKMAN Performing Organization Address [facility]/ZIP Co de Phone Number [address] [address], [facility] [phone] * (ABNORMAL) PTT [facility] (11/02/2022 4:45 AM CDT) [facility] APTT 52.5(H) 23.0 - 38.4 Seconds 11/02/2022 5:20 AM CDT [facility] Comment:Suggested therapeuti c range for full dose I.V. unfractionated heparin therapy for venous thromboembolism is 71 to 109 seconds. Blood BLOOD SPECIMEN / Unknown Venipuncture / Unknown 11/02/2022 4:45 AM CDT 11/02/2022 4:59 AM CDT Jim Walter MD LAB - COAGULATION O RDERAJESSE Performing Organization Address [facility]/ZIP Co de Phone Number [address] [address], [facility] [phone] * HEPATITIS C AB SCREEN RFLX NAAT QUANT (11/02/2022 4:45 AM CDT) [facility] Hepatitis C Antibody Non-react tiffany Non-reac tive 11/02/2022 5:56 AM CDT [facility] Comment:Hepatitis C Antibody screen indicates no [...] - CHEMISTRY ORD ERABLES Performing Organization Address City/[facility]/ZIP Co de Phone Number [address] [phone], [facility] [phone] * (ABNORMAL) HEPATITIS B PANEL (11/02/2022 4:45 AM CDT) Hepatitis B Virus Surface Antibody Reactive(A ) Non-react tiffany 11/02/2022 5:55 AM CDT [facility] Comment: > 12 mIU/mL Hepatitis B surface Antibody (HBsAb). Reactive for HBsAb - individual is considered immune to Hepatitis B Virus infection. Hepatitis B Virus Surface Antigen Non-reacti ve Non-react tiffany 11/02/2022 5:55 AM CDT [facility] Hepatitis B Core Virus Antibody IgM Non-reacti ve Non-react tiffany 11/02/2022 5:55 AM CDT [facility] Blood BLOOD SPECIMEN / Unknown Venipuncture / Unknown 11/02/2022 4:45 AM CDT 11/02/2022 4:56 AM CDT Jim Walter MD LAB - CHEMISTRY ORD ERABLES Performing Organization Address City/[facility]/ZIP Co de Phone Number [address] [phone], [facility] [phone] * EXPOSURE HIV (11/02/2022 4:45 AM CDT) HIV Antigen/Antibo dy 1 & 2 Non-reacti ve Non-reacti ve 11/02/2022 5:56 AM CDT [facility] Blood BLOOD SPECIMEN / Unknown Venipuncture / Unknown 11/02/2022 4:45 AM CDT 11/02/2022 4:56 AM CDT Jim Walter MD LAB - CHEMISTRY ORD ERABLES Performing Organization Address [facility] Co de Phone Number [address] [address], [facility] [phone] * (ABNORMAL) PTT [facility] (11/02/2022 1:32 AM CDT) APTT 48.3(H) 23.0 - 38.4 Seconds 11/02/2022 2:53 AM CDT [facility] Comment:Suggested therapeuti c range for full dose I.V. unfractionated heparin therapy for venous thromboembolism is 71 to 109 seconds. Blood BLOOD SPECIMEN / Unknown Lab Venipuncture / Unknown 11/02/2022 1:32 AM CDT 11/02/2022 2:14 AM CDT Jim Walter MD LAB - COAGULATION O RDERABLES Performing Organization Address [facility] Co de Phone Number [address] [address], [facility] [phone] * (ABNORMAL) PT-INR [facility] (11/02/2022 1:32 AM CDT) PT 15.1(H) 12.1 - 14.8 Seconds 11/02/2022 2:53 AM CDT [facility] INR 1.2 See Comment 11/02/2022 2:53 AM CDT [facility] Comment:The suggested therap eutic range for standard coumadin (warfarin) therapy is an INR of 2.0-3.0. For high-risk patients (Mechanical Mitral Valve Prosthesis, etc.), the suggested prophylactic therapeutic range is an INR of 2.5-3.5. Blood BLOOD SPECIMEN / Unknown Lab Venipuncture / Unknown 11/02/2022 1:32 AM CDT 11/02/2022 2:14 AM CDT Emir Vail MD LAB - COAGULATION OR DERABLES Performing Organization Address [facility]/ZIP Co de Phone Number [address] [address], [place] [phone] * (ABNORMAL) BASIC METABOLIC PANEL (CALCIUM TOTAL) (11/02/2022 1:32 AM CDT) [facility] BUN 10 7 - 26 mg/dL 11/02/2022 2:44 AM [facility] Creatinine 0.48(L) 0.56 - 0.96 mg/dL 11/02/2022 2:44 AM [facility] Sodium 138 136 - 145 mmol/L 11/02/2022 2:44 AM [facility] Potassium 4.1 3.5 - 4.5 mmol/L 11/02/2022 2:44 AM [facility] Chloride 108(H) 98 - 107 mmol/L 11/02/2022 2:44 AM [facility] CO2 22 22 - 29 mmol/L 11/02/2022 2:44 AM [facility] Glucose 96 70 - 115 mg/dL 11/02/2022 2:44 AM [facility] Calcium 8.6 8.4 - 10.2 mg/dL 11/02/2022 2:44 AM [facility] Anion Gap 12 8 - 18 11/02/2022 2:44 AM [facility] BUN/Creatinine Ratio 21 7 - 23 11/02/2022 2:44 AM [facility] Osmolality Calculated 285 270 - 300 mOsm/kg 11/02/2022 2:44 AM [facility] eGFR by CKD-EPI >90 >=90 mL/min/1.7 3 m2 11/02/2022 2:44 AM [facility] Blood BLOOD SPECIMEN / Unknown Lab Venipuncture / Unknown 11/02/2022 1:32 AM CDT 11/02/2022 2:16 AM CDT Emir Vail MD LAB - CHEMISTRY [facility] Organization Address City/State/ZIP Co de Phone Number [facility] [address] [place] [address], [facility] [phone] * (ABNORMAL) CBC W AUTO DIFFERENTIAL (11/02/2022 1:32 AM CDT) [facility] WBC 19.3(H) 3.5 - 10.5 10? 3 /uL 11/02/2022 2:22 AM [facility] RBC 3.32(L) 3.80 - 5.20 10? 6 /uL 11/02/2022 2:22 AM [facility] Hemoglobin 10.0(L) 12.0 - 15.6 g/dL 11/02/2022 2:22 AM [facility] Hematocrit 31.1(L) 35.0 - 45.0 % 11/02/2022 2:22 AM [facility] MCV 93.7 80.7 - 98.3 fL 11/02/2022 2:22 AM [facility] MCH 30.1 26.7 - 34.0 pg 11/02/2022 2:22 AM [facility] MCHC 32.2 30.8 - 35.9 g/dL 11/02/2022 2:22 AM [facility] RDW-SD 49.4 36.0 - 50.0 fL 11/02/2022 2:22 AM [facility] RDW-CV 14.7 11.2 - 14.8 % 11/02/2022 2:22 AM [facility] Platelet Count 400 150 - 400 10? 3 /uL 11/02/2022 2:22 AM [facility] MPV 10.1 9.4 - 12.9 fL 11/02/2022 2:22 AM [facility] nRBC Absolute 0.02(H) 0 10? 3 /uL 11/02/2022 2:22 AM [facility] nRBC Auto 0.1(H) 0 /100 WBC 11/02/2022 2:22 AM [facility] Neutrophils % 76.4(H) 35.0 - 70.0 % 11/02/2022 2:22 AM [facility] Lymphocytes % 13.4(L) 20.0 - 43.0 % 11/02/2022 2:22 AM [facility] Monocytes % 7.3 5.0 - 13.0 % 11/02/2022 2:22 AM [facility] Eosinophils % 1.4 0.0 - 6.0 % 11/02/2022 2:22 AM CDT [facility] Basophil % 0.3 0.0 - 2.0 % 11/02/2022 2:22 AM T [facility] Neutrophils Absolute 14.73(H) 1.60 - 7.00 10? 3 /uL 11/02/2022 2:22 AM CDT [facility] Lymphocyte Absolute 2.59 1.10 - 3.90 10? 3 /uL 11/02/2022 2:22 AM T [facility] Monocytes Absolute 1.40(H) 0.26 - 1.07 10? 3 /uL 11/02/2022 2:22 AM [facility] Eosinophils Absolute 0.27 0.00 - 0.47 10? 3 /uL 11/02/2022 2:22 AM T [facility] Basophils Absolute 0.06 0.00 - 0.08 10? 3 /uL 11/02/2022 2:22 AM [facility] Immature Granulocytes % 1.2(H) 0.0 - 1.0 % 11/02/2022 2:22 AM [facility] Immature Granulocytes Absolute 0.23 11/02/2022 2:22 AM [facility] Blood BLOOD SPECIMEN / Unknown Lab Venipuncture / Unknown 11/02/2022 1:32 AM CDT 11/02/2022 2:17 AM CDT Emir Vail MD LAB - HEMATOLOGY ORD ERABLES Performing Organization Address City/State/[facility] Co de Phone Number [facility] [address] [place] [address], [facility] [phone] * PHOSPHORUS BLOOD (11/02/2022 1:32 AM CDT) Pathologist [facility] Phosphorus 4.5 2.9 - 5.1 mg/dL 11/02/2022 2:44 AM T [facility] Blood BLOOD SPECIMEN / Unknown Lab Venipuncture / Unknown 11/02/2022 1:32 AM CDT 11/02/2022 2:16 AM CDT Emir Vail MD LAB - [facility] Performing Organization Address City/[facility]/ZIP Co de Phone Number [facility] [address] [place] [address], [place] [phone] * MAGNESIUM BLOOD (11/02/2022 1:32 AM CDT) Pathologist [facility] Magnesium 2.0 1.6 - 2.6 mg/dL 11/02/2022 2:44 AM CDT [facility] Blood BLOOD SPECIMEN / Unknown Lab Venipuncture / Unknown 11/02/2022 1:32 AM CDT 11/02/2022 2:16 AM CDT Emir Vail MD LAB - CHEMISTRY [facility]NA BLACKMAN Performing Organization Address City/[facility]/ZIP Co de Phone Number [facility] [address] [place] [address], [place] [phone] * PREPARE (CROSSMATCH) RBC UNIT(S), 3 Units (11/02/2022 1:17 AM CDT) Pathologist [facility] Unit Description N/A [facility] Blood Bank BLOOD SPECIMEN / Unknown 10/29/2022 11:32 AM CDT Valdez Clay MD LAB - BLOOD BANK O RDERABLES Performing Organization Address [facility]/ZIP Co de Phone Number [facility] [address] [place] [address], [place] [phone] * PREPARE (CROSSMATCH) RBC UNIT(S), 2 Units (11/02/2022 1:17 AM CDT) Unit Description AS1 LR PRBC [facility] Unit ABO B [facility] Unit Rh POS [facility] Product Number R02 [facility] Unit Donor # [id number] [facility] Unit Status released [facility] Product Code [id number] [facility] Blood Type Barcode 7300 [facility] Expiration Date S [facility] Unit Description AS1 LR PRBC [facility] Unit ABO B [facility] Unit Rh POS [facility] Product Number R02 [facility] Unit Donor # [id number] [facility] Unit Status transfused [facility] Product Code [id number] [facility] Blood Type Barcode 7300 [facility] Expiration Date S BLOOD BANK LAB Blood Bank BLOOD SPECIMEN / Unknown 10/29/2022 11:32 AM CDT Jim Walter MD LAB - BLOOD BANK OR DERABLES [facility] [address] [place] [address], [facility] [phone] * PREPARE (CROSSMATCH) RBC UNIT(S), 2 Units (11/02/2022 1:17 AM CDT) Unit Description N/A [facility] Blood Bank BLOOD SPECIMEN / Unknown 10/29/2022 11:32 AM CDT Jim Walter MD LAB - BLOOD BANK OR DERABLES [facility] [address] [place] [address], [facility] [phone] * CT ABDOMEN WO CONTRAST (2022 6:47 PM CDT) Anatomical Region Laterality Modality Abdomen Computed Tomogra phy 2022 7:20 PM CDT Impressions 11/02/2022 1:18 AM CDT Impression: Interval placement of a percutaneous gastrostomy tube with intraluminal placement of tip and inflated balloon within the body/antrum of the stomach without complication, as clinically queried.. > Dictated by Tim Major MD (residential program director). I, Pepe Gonzalez MD have personally reviewed and interpreted this examination/study. > Interpreting Provider: Pepe Gonzalez MD on 11/02/2022 1:18 AM Narrative 11/02/2022 1:18 AM CDT PROCEDURE: ??CT ABDOMEN WO CONTRAST, DATE/TIME OF EXAM: ??2022 6:47 PM, LOCATION ??[facility] INDICATION: Z93.1: Presence of externally removable [...] CONTRAST, DATE/TIME OF EXAM: 2022 6:47PM, LOCATION [facility] INDICATION: Z93.1: Presence of externally removable [...] > Dictated by Tim Major MD (residential program director). I, Pepe Gonzalez MD have personally reviewed [...] Procedure Code(s): ? --- Professional --- ? 30353, Esophagogastroduoden oscopy, flexible, transoral; with directed ? placement of percutaneous gastrostomy tube Diagnosis Code(s): ?--- Professional --- ?K44.9, Diaphragmatic hernia without obstruction or ?gangrene ?K29.60, Other gastritis without bleeding ?R13.12, Dysphagia, oropharyngeal phase ?R29.818, Other symptoms and signs involving the ?nervous system ?Z43.1, Encounter for attention to gastrostomy CPT copyright 2021 [employer]. All rights reserved. The codes documented in this report are preliminary and upon orderlies teacher review may be revised to meet current compliance requirements. Khanh Metz MD 2022 3:26:58 PM Note Initiated On: 2022 2:14 PM Number of Addenda: 0 ? [facility] ? [address] [place], [place] [id number] [place] [address] PROVATION 2022 2:14 PM CDT Khanh Metz MD GI PROCEDURE ORDERAB LES [facility] [employer] * (ABNORMAL) PTT [facility] (2022 8:48 AM CDT) APTT 43.6(H) 23.0 - 38.4 Seconds 2022 9:20 AM CDT [facility] Comment:Suggested therapeuti c range for full dose I.V. unfractionated heparin therapy for venous thromboembolism is 71 to 109 seconds. Blood BLOOD SPECIMEN / Unknown Venipuncture / Unknown 2022 8:48 AM CDT 2022 8:56 AM CDT Jim Walter MD LAB - COAGULATION O RDERABLES Performing Organization Address City/[facility]/ZIP Co de Phone Number [address] [address], [place] [phone] * PT-INR [facility] (2022 2:40 AM CDT) PT 14.3 12.1 - 14.8 Seconds 2022 3:16 AM CDT [facility] INR 1.1 See Comment 2022 3:16 AM CDT [facility] Comment:The suggested therap eutic range for standard coumadin (warfarin) therapy is an INR of 2.0-3.0. For high-risk patients (Mechanical Mitral Valve Prosthesis, etc.), the suggested prophylactic therapeutic range is an INR of 2.5-3.5. Blood BLOOD SPECIMEN / Unknown Venipuncture / Unknown 2022 2:40 AM CDT 2022 2:47 AM CDT Emir Vail MD LAB - COAGULATION OR DERABLES Performing Organization Address City/[facility]/ZIP Co de Phone Number [address] [address], [place] [phone] * (ABNORMAL) PTT [facility] (2022 2:40 AM CDT) APTT 67.7(H) 23.0 - 38.4 Seconds 2022 3:16 AM CDT [facility] Comment:Suggested therapeuti c range for full dose I.V. unfractionated heparin therapy for venous thromboembolism is 71 to 109 seconds. Blood BLOOD SPECIMEN / Unknown Venipuncture / Unknown 2022 2:40 AM CDT 2022 2:47 AM CDT Good Antunez MD LAB - COAGULATION OR DERABLES [address] [place] [address], [facility] [phone] * (ABNORMAL) PTT [facility] (2022 12:03 AM CDT) APTT 71.4(H) 23.0 - 38.4 Seconds 2022 12:45 AM [facility] Comment:Suggested therapeuti c range for full dose I.V. unfractionated heparin therapy for venous thromboembolism is 71 to 109 seconds. Blood BLOOD SPECIMEN / Unknown Venipuncture / Unknown 2022 12:03 AM CDT 2022 12:18 AM CDT Jim Walter MD LAB - COAGULATION O RDERABLES [facility] [address] [place] [address], [facility] [phone] * (ABNORMAL) BASIC METABOLIC PANEL (CALCIUM TOTAL) (2022 12:03 AM CDT) [facility] BUN 8 7 - 26 mg/dL 2022 12:45 AM [facility] Creatinine 0.56 0.56 - 0.96 mg/dL 2022 12:45 AM [facility] Sodium 139 136 - 145 mmol/L 2022 12:45 AM [facility] Potassium 3.7 3.5 - 4.5 mmol/L 2022 12:45 AM [facility] Chloride 105 98 - 107 mmol/L 2022 12:45 AM [facility] CO2 25 22 - 29 mmol/L 2022 12:45 AM [facility] Glucose 128(H) 70 - 115 mg/dL 2022 12:45 AM [facility] Calcium 8.7 8.4 - 10.2 mg/dL 2022 12:45 AM [facility] Anion Gap 13 8 - 18 2022 12:45 AM [facility] BUN/Creatinine Ratio 14 7 - 23 2022 12:45 AM [facility] Osmolality Calculated 288 270 - 300 mOsm/kg 2022 12:45 AM [facility] eGFR by CKD-EPI >90 >=90 mL/min/1.7 3 m2 2022 12:45 AM [facility] Blood BLOOD SPECIMEN / Unknown Venipuncture / Unknown 2022 12:03 AM CDT 2022 12:18 AM CDT Emir Vail MD LAB - CHEMISTRY [facility] Organization Address City/State/ZIP Co de Phone Number [facility] [address] [place] [address], [facility] [phone] * (ABNORMAL) CBC W AUTO DIFFERENTIAL (2022 12:03 AM CDT) WBC 20.6(H) 3.5 - 10.5 10? 3 /uL 2022 12:40 AM [facility] RBC 3.41(L) 3.80 - 5.20 10? 6 /uL 2022 12:40 AM [facility] Hemoglobin 10.1(L) 12.0 - 15.6 g/dL 2022 12:40 AM [facility] Hematocrit 31.6(L) 35.0 - 45.0 % 2022 12:40 AM [facility] MCV 92.7 80.7 - 98.3 fL 2022 12:40 AM [facility] MCH 29.6 26.7 - 34.0 pg 2022 12:40 AM [facility] MCHC 32.0 30.8 - 35.9 g/dL 2022 12:40 AM [facility] RDW-SD 49.7 36.0 - 50.0 fL 2022 12:40 AM [facility] RDW-CV 15.1(H) 11.2 - 14.8 % 2022 12:40 AM [facility] Platelet Count 437(H) 150 - 400 10? 3 /uL 2022 12:40 AM [facility] MPV 9.8 9.4 - 12.9 fL 2022 12:40 AM [facility] nRBC Absolute 0.03(H) 0 10? 3 /uL 2022 12:40 AM [facility] nRBC Auto 0.1(H) 0 /100 WBC 2022 12:40 AM [facility] Neutrophils % 71.7(H) 35.0 - 70.0 % 2022 12:40 AM [facility] Lymphocytes % 14.3(L) 20.0 - 43.0 % 2022 12:40 AM [facility] Monocytes % 9.6 5.0 - 13.0 % 2022 12:40 AM [facility] Eosinophils % 2.0 0.0 - 6.0 % 2022 12:40 AM [facility] Basophil % 0.4 0.0 - 2.0 % 2022 12:40 AM [facility] Neutrophils Absolute 14.76(H) 1.60 - 7.00 10? 3 /uL 2022 12:40 AM [facility] Lymphocyte Absolute 2.94 1.10 - 3.90 10? 3 /uL 2022 12:40 AM [facility] Monocytes Absolute 1.98(H) 0.26 - 1.07 10? 3 /uL 2022 12:40 AM [facility] Eosinophils Absolute 0.42 0.00 - 0.47 10? 3 /uL 2022 12:40 AM [facility] Basophils Absolute 0.08 0.00 - 0.08 10? 3 /uL 2022 12:40 AM [facility] Immature Granulocytes % 2.0(H) 0.0 - 1.0 % 2022 12:40 AM [facility] Immature Granulocytes Absolute 0.41 2022 12:40 AM [facility] Blood BLOOD SPECIMEN / Unknown Venipuncture / Unknown 2022 12:03 AM CDT 2022 12:18 AM CDT Emir Vail MD LAB - HEMATOLOGY ORD DIMAS [address] [address], [place] [phone] * PHOSPHORUS BLOOD (2022 12:03 AM CDT) Phosphorus 4.1 2.9 - 5.1 mg/dL 2022 12:45 AM CDT [facility] Blood BLOOD SPECIMEN / Unknown Venipuncture / Unknown 2022 12:03 AM CDT 2022 12:18 AM CDT Emir Vail MD LAB - CHEMISTRY [facility] BLACKMAN Performing Organization Address City/[facility]/ZIP Co de Phone Number [address] [address], [place] [phone] * MAGNESIUM BLOOD (2022 12:03 AM CDT) Magnesium 2.1 1.6 - 2.6 mg/dL 2022 12:45 AM CDT [facility] Blood BLOOD SPECIMEN / Unknown Venipuncture / Unknown 2022 12:03 AM CDT 2022 12:18 AM CDT Emir Vail MD LAB - CHEMISTRY [facility] BLACKMAN [address] [address], [place] [phone] * (ABNORMAL) PTT [facility] (10/31/2022 10:11 PM CDT) APTT 67.6(H) 23.0 - 38.4 Seconds 10/31/2022 11:16 PM CDT [facility] Comment:Suggested therapeuti c range for full dose I.V. unfractionated heparin therapy for venous thromboembolism is 71 to 109 seconds. Blood BLOOD SPECIMEN / Unknown Venipuncture / Unknown 10/31/2022 10:11 PM CDT 10/31/2022 10:24 PM CDT Jim Walter MD LAB - COAGULATION O RDERABLES Performing Organization Address City/[facility] Co de Phone Number [address] [address], [facility] [phone] * (ABNORMAL) PTT [facility] (10/31/2022 7:33 PM CDT) APTT 53.1(H) 23.0 - 38.4 Seconds 10/31/2022 8:18 PM CDT [facility] Comment:Suggested therapeuti c range for full dose I.V. unfractionated heparin therapy for venous thromboembolism is 71 to 109 seconds. Blood BLOOD SPECIMEN / Unknown Venipuncture / Unknown 10/31/2022 7:33 PM CDT 10/31/2022 7:51 PM CDT Good Antunez MD LAB - COAGULATION OR DERABLES Performing Organization Address [facility] Co de Phone Number [address] [address], [facility] [phone] * (ABNORMAL) PTT [facility] (10/31/2022 3:22 PM CDT) APTT 50.2(H) 23.0 - 38.4 Seconds 10/31/2022 3:51 PM CDT [facility] Comment:Suggested therapeuti c range for full dose I.V. unfractionated heparin therapy for venous thromboembolism is 71 to 109 seconds. 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 unfractionated heparin therapy for venous thromboembolism is 71 to 109 seconds. Blood BLOOD SPECIMEN / Unknown Venipuncture / Unknown 10/31/2022 9:48 AM CDT 10/31/2022 9:54 AM CDT Good Antunez MD LAB - COAGULATION OR DERABLES Performing Organization Address [facility] Co de Phone Number [address] [address], [facility] [phone] * (ABNORMAL) VANCOMYCIN LEVEL TROUGH (10/31/2022 9:48 AM CDT) Vancomycin Trough 25.4(HH) 10.0 - 20.0 ug/mL 10/31/2022 10:30 AM CDT [facility] Blood BLOOD SPECIMEN / Unknown Venipuncture / Unknown 10/31/2022 9:48 AM CDT 10/31/2022 9:51 AM CDT Narrative [facility] - 10/31/2022 10:30 AM CDT See institution protocol. Dary Garvey MD LAB - CHEMISTRY ORDDanyelle BLACKMAN [facility] [address] [place] [address], [facility] [phone] * PT-INR [facility] (10/31/2022 12:22 AM CDT) PT 14.5 12.1 - 14.8 Seconds 10/31/2022 12:54 AM CDT [facility] INR 1.1 See Comment 10/31/2022 12:54 AM T [facility] Comment:The suggested therap eutic range for standard coumadin (warfarin) therapy is an INR of 2.0-3.0. For high-risk patients (Mechanical Mitral Valve Prosthesis, etc.), the suggested prophylactic therapeutic range is an INR of 2.5-3.5. Blood BLOOD SPECIMEN / Unknown Venipuncture / Unknown 10/31/2022 12:22 AM CDT 10/31/2022 12:30 AM CDT Emir Vail MD LAB - COAGULATION OR DERABLES [facility] [address] [place] [address], [facility] [phone] * (ABNORMAL) BASIC METABOLIC PANEL (CALCIUM TOTAL) (10/31/2022 12:22 AM CDT) BUN 8 7 - 26 mg/dL 10/31/2022 12:57 AM CDT [facility] Creatinine 0.56 0.56 - 0.96 mg/dL 10/31/2022 12:57 AM CDT [facility] Sodium 140 136 - 145 mmol/L 10/31/2022 12:57 AM CDT [facility] Potassium 4.2 3.5 - 4.5 mmol/L 10/31/2022 12:57 AM CDT [facility] Chloride 107 98 - 107 mmol/L 10/31/2022 12:57 AM T [facility] CO2 24 22 - 29 mmol/L 10/31/2022 12:57 AM [facility] Glucose 119(H) 70 - 115 mg/dL 10/31/2022 12:57 AM [facility] Calcium 8.4 8.4 - 10.2 mg/dL 10/31/2022 12:57 AM [facility] Anion Gap 13 8 - 18 10/31/2022 12:57 AM [facility] BUN/Creatinine Ratio 14 7 - 23 10/31/2022 12:57 AM [facility] Osmolality Calculated 289 270 - 300 mOsm/kg 10/31/2022 12:57 AM [facility] eGFR by CKD-EPI >90 >=90 mL/min/1.7 3 m2 10/31/2022 12:57 AM [facility] Blood BLOOD SPECIMEN / Unknown Venipuncture / Unknown 10/31/2022 12:22 AM CDT 10/31/2022 12:30 AM [facility] Emir Vail MD LAB - CHEMISTRY BIB[facility]NA BLACKMAN [facility] Organization Address City/State/ZIP Co de Phone Number [facility] [address] [place] [address], [facility] [phone] * (ABNORMAL) CBC W AUTO DIFFERENTIAL (10/31/2022 12:22 AM [facility]) WBC 19.6(H) 3.5 - 10.5 10? 3 /uL 10/31/2022 12:40 AM [facility] RBC 3.30(L) 3.80 - 5.20 10? 6 /uL 10/31/2022 12:40 AM [facility] Hemoglobin 9.9(L) 12.0 - 15.6 g/dL 10/31/2022 12:40 AM [facility] Hematocrit 30.4(L) 35.0 - 45.0 % 10/31/2022 12:40 AM [facility] MCV 92.1 80.7 - 98.3 fL 10/31/2022 12:40 AM [facility] MCH 30.0 26.7 - 34.0 pg 10/31/2022 12:40 AM [facility] MCHC 32.6 30.8 - 35.9 g/dL 10/31/2022 12:40 AM [facility] RDW-SD 50.4(H) 36.0 - 50.0 fL 10/31/2022 12:40 AM [facility] RDW-CV 15.3(H) 11.2 - 14.8 % 10/31/2022 12:40 AM [facility] Platelet Count 442(H) 150 - 400 10? 3 /uL 10/31/2022 12:40 AM [facility] MPV 9.5 9.4 - 12.9 fL 10/31/2022 12:40 AM [facility] nRBC Absolute 0.15(H) 0 10? 3 /uL 10/31/2022 12:40 AM [facility] nRBC Auto 0.8(H) 0 /100 WBC 10/31/2022 12:40 AM [facility] Neutrophils % 74.0(H) 35.0 - 70.0 % 10/31/2022 12:40 AM [facility] Lymphocytes % 13.5(L) 20.0 - 43.0 % 10/31/2022 12:40 AM [facility] Monocytes % 8.3 5.0 - 13.0 % 10/31/2022 12:40 AM [facility] Eosinophils % 1.4 0.0 - 6.0 % 10/31/2022 12:40 AM [facility] Basophil % 0.4 0.0 - 2.0 % 10/31/2022 12:40 AM [facility] Neutrophils Absolute 14.54(H) 1.60 - 7.00 10? 3 /uL 10/31/2022 12:40 AM [facility] Lymphocyte Absolute 2.65 1.10 - 3.90 10? 3 /uL 10/31/2022 12:40 AM [facility] Monocytes Absolute 1.63(H) 0.26 - 1.07 10? 3 /uL 10/31/2022 12:40 AM [facility] Eosinophils Absolute 0.28 0.00 - 0.47 10? 3 /uL 10/31/2022 12:40 AM CDT [facility] Basophils Absolute 0.07 0.00 - 0.08 10? 3 /uL 10/31/2022 12:40 AM CDT [facility] Immature Granulocytes % 2.4(H) 0.0 - 1.0 % 10/31/2022 12:40 AM CDT [facility] Immature Granulocytes Absolute 0.47 10/31/2022 12:40 AM CDT [facility] Blood BLOOD SPECIMEN / Unknown Venipuncture / Unknown 10/31/2022 12:22 AM CDT 10/31/2022 12:30 AM CDT Emir Vail MD LAB - HEMATOLOGY ORD DIMAS [facility] [address] [place] [id number], [place] [phone] * PHOSPHORUS BLOOD (10/31/2022 12:22 AM CDT) Phosphorus 4.1 2.9 - 5.1 mg/dL 10/31/2022 12:57 AM CDT [facility] Blood BLOOD SPECIMEN / Unknown Venipuncture / Unknown 10/31/2022 12:22 AM CDT 10/31/2022 12:30 AM CDT Emir Vail MD LAB - CHEMISTRY [facility] Performing Organization Address City/[facility]/ZIP Co de Phone Number [facility] [address] [place] [id number], [place] [phone] * MAGNESIUM BLOOD (10/31/2022 12:22 AM CDT) Magnesium 1.9 1.6 - 2.6 mg/dL 10/31/2022 12:57 AM CDT [facility] Blood BLOOD SPECIMEN / Unknown Venipuncture / Unknown 10/31/2022 12:22 AM CDT 10/31/2022 12:30 AM CDT Emir Vail MD LAB - CHEMISTRY [facility] [address] [id number], [facility] [phone] * PTT [facility] (10/30/2022 9:24 PM CDT) APTT 25.8 23.0 - 38.4 Seconds 10/30/2022 9:55 PM CDT [facility] Comment:Suggested therapeuti c range for full dose I.V. unfractionated heparin therapy for venous thromboembolism is 71 to 109 seconds. Blood BLOOD SPECIMEN / Unknown Venipuncture / Unknown 10/30/2022 9:24 PM CDT 10/30/2022 9:36 PM CDT Good Antunez MD LAB - COAGULATION OR DERABLES Performing Organization Address [facility]/ZIP Co de Phone Number [address] [address], [place] [phone] * PTT [facility] (10/30/2022 8:32 PM CDT) APTT 27.9 23.0 - 38.4 Seconds 10/30/2022 9:06 PM CDT [facility] Comment:Suggested therapeuti c range for full dose I.V. unfractionated heparin therapy for venous thromboembolism is 71 to 109 seconds. Blood BLOOD SPECIMEN / Unknown Venipuncture / Unknown 10/30/2022 8:32 PM CDT 10/30/2022 8:41 PM CDT Good Antunez MD LAB - COAGULATION OR DERABLES [address] [address], [place] [phone] * CT HEAD WO CONTRAST (10/30/2022 8:22 [...] frontal gyrus/frontal operculum, consistent with an evolving jahmcvda-vb-kazlzmf infarct. 4.No significant midline shift. Similar-appearing size and configuration of the ventricles without evidence of hydrocephalus. Basal cisterns are patent. 5.No other convincing change. Partially imaged left nasoenteric tube. 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 4.No significant midline shift. Similar-appearing size and configurationof the ventricles without evidence of hydrocephalus. Basal cisterns are patent. 5.No other convincing change. Partially imaged left nasoenteric tube. > Interpreting Provider: Amanda Real MD, PhD on 10/31/2022 1:26 AM Jim Walter MD CT ORDERABLES * (ABNORMAL) PTT [facility] (10/30/2022 4:59 PM CDT) APTT 175.2(HH) 23.0 - 38.4 Seconds 10/30/2022 5:47 PM CDT [facility] Comment:Suggested therapeuti c range for full dose I.V. unfractionated heparin therapy for venous thromboembolism is 71 to 109 seconds. Blood BLOOD SPECIMEN / Unknown Venipuncture / Unknown 10/30/2022 4:59 PM CDT 10/30/2022 5:11 PM CDT Good Antunez MD LAB - COAGULATION OR DERABLES [facility] [address] [place] [address], [facility] [phone] * FL GLENN W ANGIO TEAM (10/30/2022 2:40 PM CDT) Narrative [facility] - 10/30/2022 2:56 PM CDT Fluoroscopy was used for this exam in the OR. Please see the Operative report. Valdez Clay MD FLUOROSCOPY ORDERA BLES [facility] * TRANSFUSE RED BLOOD CELL LEUKOREDUCED UNIT(S) (10/30/2022 2:20 PM CDT) Valdez Clay MD NURSING - BLOOD [place] OD TRANSFUSION * TRANSFUSE RED BLOOD CELL LEUKOREDUCED UNIT(S) (10/30/2022 1:53 PM CDT) Valdez Clay MD NURSING - BLOOD W[place] OD TRANSFUSION * ACT LR - POCT ([facility]) (10/30/2022 1:50 PM CDT) Pathologist [facility] ACT LR 287 See result comments sec 10/30/2022 6:37 PM CDT [facility] Blood BLOOD SPECIMEN / Unknown 10/30/2022 1:50 PM CDT 10/30/2022 6:37 PM CDT Narrative [facility] - 10/30/2022 6:37 PM CDT ACT-LR Therapeutics ranges are: Cardiac builder's labourer = 200-300 seconds Sheath pull = ACT [...] Walter MD LAB - COAGULATION O RDERABLES [address] [address], [facility] [phone] * (ABNORMAL) BLOOD GAS+COOX+LYTES+METAB ARTERIAL POCT (10/30/2022 1:33 PM CDT) pH Arterial 7.40 7.35 - 7.45 pH 10/30/2022 1:33 PM [facility] pO2 Arterial 228(H) 80 - 100 mmHg 10/30/2022 1:33 PM [facility] pCO2 Arterial 39 35 - 45 mmHg 1:33 PM [facility] HCO3 Arterial 24.2 20.0 - 30.0 mmol/L 10/30/2022 1:33 PM [facility] BE Arterial -0.5 -2.0 - 2.0 mmol/L 10/30/2022 1:33 PM [facility] Oxyhemoglobin Arterial 97.5 % 10/30/2022 1:33 PM [facility] Dexoyhemoglobin (HHB) % <1.0 % 10/30/2022 1:33 PM [facility] Methemoglobin <0.8 0.0 - 2.0 % 10/30/2022 1:33 PM [facility] Carboxyhemoglobin 1.4 0.0 - 2.0 % 2022 1:33 PM [facility] Comment:Carboxyhemoglobin No rmal Concentration: Non-smokers: 0-2%; Smokers: 0- 9%; Toxic: >20% O2 Content Arterial 11.3 Interpret within clinical context ml/dL 10/30/2022 1:33 PM [facility] Hemoglobin by COOX 7.8(L) 12.0 - 15.6 g/dL 10/30/2022 1:33 PM [facility] O2 Saturation Arterial 100 90 - 100 % 10/30/2022 1:33 PM [facility] Sodium Whole Blood 140 135 - 145 mmol/L 10/30/2022 1:33 PM [facility] Potassium Whole Blood 4.4 3.5 - 5.5 mmol/L 10/30/2022 1:33 PM [facility] Chloride WB 108(H) 78 - 107 mmol/L 10/30/2022 1:33 PM [facility] Calcium Ionized 1.30 mmol/L 1:33 PM [facility] Ionized Calcium pH Adjusted 1.30 1.19 - 1.34 mmol/L 10/30/2022 1:33 PM CDT [facility] Anion Gap (AG) Arterial 12 8 - 18 mmol/L 10/30/2022 1:33 PM CDT [facility] Glucose WB 127(H) 70 - 115 mg/dL 10/30/2022 1:33 PM CDT [facility] Lactic Acid Whole Blood 0.9 <=2.0 mmol/L 10/30/2022 1:33 PM CDT [facility] Blood, arterial ARTERIAL BLOOD SPECIMEN / Unknown 10/30/2022 1:33 PM CDT 10/30/2022 1:34 PM CDT Jim Walter MD LAB - POINT OF CARE ORDERABLES Performing Organization Address [facility]/ZIP Co de Phone Number [address] [address], [place] [phone] * ACT LR - POCT ([facility]) (10/30/2022 1:32 PM CDT) ACT LR 171 See result comments sec 10/30/2022 6:37 PM CDT [facility] Blood BLOOD SPECIMEN / Unknown 10/30/2022 1:32 PM CDT 10/30/2022 6:37 PM CDT Narrative [facility] - 10/30/2022 6:37 PM CDT ACT-LR Therapeutics ranges are: Cardiac builder's labourer = 200-300 seconds Sheath pull = ACT [...] - COAGULATION O RDERABLES Performing Organization Address [facility]/ZIP Co de Phone Number [address] [address], [place] [phone] * (ABNORMAL) BLOOD GAS+COOX+LYTES+METAB ARTERIAL POCT (10/30/2022 12:59 PM [facility]) pH Arterial 7.33(L) 7.35 - 7.45 pH 10/30/2022 12:59 PM [facility] pO2 Arterial 208(H) 80 - 100 mmHg 10/30/2022 12:59 PM [facility] pCO2 Arterial 49(H) 35 - 45 mmHg 12:59 PM [facility] HCO3 Arterial 25.8 20.0 - 30.0 mmol/L 10/30/2022 12:59 PM [facility] BE Arterial -0.2 -2.0 - 2.0 mmol/L 10/30/2022 12:59 PM [facility] Oxyhemoglobin Arterial 95.7 % 10/30/2022 12:59 PM [facility] Dexoyhemoglobin (HHB) % 1.6 % 10/30/2022 12:59 PM [facility] Methemoglobin 1.4 0.0 - 2.0 % 10/30/2022 12:59 PM [facility] Carboxyhemoglobin 1.3 0.0 - 2.0 % 2022 12:59 PM [facility] Comment:Carboxyhemoglobin No rmal Concentration: Non-smokers: 0-2%; Smokers: 0- 9%; Toxic: >20% O2 Content Arterial 10.2 Interpret within clinical context ml/dL 10/30/2022 12:59 PM [facility] Hemoglobin by COOX 7.2(L) 12.0 - 15.6 g/dL 10/30/2022 12:59 PM [facility] O2 Saturation Arterial 98 90 - 100 % 10/30/2022 12:59 PM [facility] Sodium Whole Blood 139 135 - 145 mmol/L 10/30/2022 12:59 PM [facility] Potassium Whole Blood 4.2 3.5 - 5.5 mmol/L 10/30/2022 12:59 PM [facility] Chloride WB 109(H) 78 - 107 mmol/L 10/30/2022 12:59 PM [facility] Calcium Ionized 1.08 mmol/L 12:59 PM CDT [facility] Ionized Calcium pH Adjusted 1.05(L) 1.19 - 1.34 mmol/L 10/30/2022 12:59 PM CDT [facility] Anion Gap (AG) Arterial 8 8 - 18 mmol/L 10/30/2022 12:59 PM CDT [facility] Glucose WB 133(H) 70 - 115 mg/dL 10/30/2022 12:59 PM CDT [facility] Lactic Acid Whole Blood 0.7 <=2.0 mmol/L 10/30/2022 12:59 PM CDT [facility] Blood, arterial ARTERIAL BLOOD SPECIMEN / Unknown 10/30/2022 12:59 PM CDT 10/30/2022 1:00 PM CDT Jim Walter MD LAB - POINT OF CARE ORDERABLES Performing Organization Address [facility] Co de Phone Number [address] [address], [facility] [phone] * ACT LR - POCT ([facility]) (10/30/2022 12:57 PM CDT) ACT LR 228 See result comments sec 10/30/2022 6:37 PM CDT [facility] Blood BLOOD SPECIMEN / Unknown 10/30/2022 12:57 PM CDT 10/30/2022 6:37 PM CDT Narrative [facility] - 10/30/2022 6:37 PM CDT ACT-LR Therapeutics ranges are: Cardiac builder's labourer = 200-300 seconds Sheath pull = ACT [...] - COAGULATION O RDERABLES Performing Organization Address [facility]/ZIP Co de Phone Number [address] [address], [place] [phone] * BLOOD GAS ART+LYTES+METAB+COOX POC NOTIF (10/30/2022 12:50 PM CDT) Comment Notification Label Only - See Separate Report 10/30/2022 2:02 PM CDT [facility] Other MISCELLANEOUS SAMPLES / Unknown 10/30/2022 12:50 PM CDT 10/30/2022 12:54 PM CDT Manuel Ramirez MD LAB - BLOOD GASES ORDERABLES [address] [address], [facility] [phone] * ACT LR - POCT ([facility]) (10/30/2022 12:26 PM CDT) Pathologist [facility] ACT LR 260 See result comments sec 10/30/2022 6:37 PM CDT [facility] Blood BLOOD SPECIMEN / Unknown 10/30/2022 12:26 PM CDT 10/30/2022 6:37 PM CDT Narrative [facility] - 10/30/2022 6:37 PM CDT ACT-LR Therapeutics ranges are: Cardiac builder's labourer = 200-300 seconds Sheath pull = ACT [...] Walter MD LAB - COAGULATION O RDERABLES [address] [address], [place] [phone] * PATHOLOGY TISSUE (10/30/2022 12:18 PM CDT) Case Report Surgical Pathology Report ? Case: [id number] ? Authorizing Provider: ??Valdez Clay MD ?Collected: ? 10/30/2022 12:18 PM ? Ordering Location: ? [facility] ICU ? Received: ?10/30/2022 01:28 PM ? Pathologist: ? Rayna Barrera MD ? Specimen: ?Thrombus, right femoral thrombus ? 11/04/2022 6:13 PM CDT [facility] Final Diagnosis Thrombus, right femoral, [...] CDT [facility] Pathologist Location at [facility] 11/04/2022 6:13 PM CDT [facility] Disclaimer The performance characteristics of all immunohistochemical and indirect immunofluorescence stains (if any) cited in this report were determined by the Histopathology Laboratory of [facility]. Some of these tests [...] attending (teaching) pathologist. 11/04/2022 6:13 PM CDT [facility] Embedded Images 11/04/2022 6:13 PM CDT [facility] Resection without Tumor THROMBUS / Unknown 10/30/2022 12:18 PM CDT 10/30/2022 1:28 PM CDT Comment:Pre-op diagnosis: Critical limb-threatening ischemia Valdez Clay MD LAB - PATHOLOGY/CY TOLOGY ORDERABLES Performing Organization Address City/State/[facility] Co de Phone Number [facility] [address] [phone] * ACT LR - POCT ([facility]) (10/30/2022 12:16 PM CDT) ACT LR 223 See result comments sec 10/30/2022 6:37 PM CDT [facility] Blood BLOOD SPECIMEN / Unknown 10/30/2022 12:16 PM CDT 10/30/2022 6:37 PM CDT Narrative [facility] - 10/30/2022 6:37 PM CDT ACT-LR Therapeutics ranges are: Cardiac builder's labourer = 200-300 seconds Sheath pull = ACT [...] - COAGULATION O RDDIMAS Performing Organization Address City/[facility]/ZIP Co de Phone Number [facility] [address] [place] [address], [place] [phone] * ACT LR - POCT ([facility]) (10/30/2022 12:07 PM CDT) Pathologist [facility] ACT LR 121 See result comments sec 10/30/2022 6:37 PM CDT [facility] Blood BLOOD SPECIMEN / Unknown 10/30/2022 12:07 PM CDT 10/30/2022 6:37 PM CDT Narrative [facility] - 10/30/2022 6:37 PM CDT ACT-LR Therapeutics ranges are: Cardiac builder's labourer = 200-300 seconds Sheath pull = ACT [...] - COAGULATION O DIONI Performing Organization Address [facility]/ZIP Co de Phone Number [facility] [address] [place] [address], [place] [phone] * PREPARE (CROSSMATCH) RBC UNIT(S), 1 Units (10/30/2022 10:38 AM CDT) Unit Description AS1 LR PRBC [facility] Unit ABO B [facility] Unit Rh POS [facility] Product Number R02 [facility] Unit Donor # [id number] [facility] Unit Status transfused [facility] Product Code [id number] [facility] Blood Type Barcode 7300 [facility] Expiration Date [id number] S [facility] LAB Blood Bank BLOOD SPECIMEN / Unknown 10/29/2022 11:32 AM CDT Jim Walter MD LAB - BLOOD BANK OR DERABLES Performing Organization Address [facility] Co de Phone Number [facility] [address] [place] [address], [facility] [phone] * (ABNORMAL) PTT [facility] (10/30/2022 8:39 AM CDT) APTT 96.2(H) 23.0 - 38.4 Seconds 10/30/2022 9:23 AM CDT [facility] Comment:Suggested therapeuti c range for full dose I.V. unfractionated heparin therapy for venous thromboembolism is 71 to 109 seconds. Blood BLOOD SPECIMEN / Unknown Venipuncture / Unknown 10/30/2022 8:39 AM CDT 10/30/2022 8:44 AM CDT Good Antunez MD LAB - COAGULATION OR DERABLES Performing Organization Address [facility] de Phone Number [facility] [address] [place] [address], [facility] [phone] * PT-INR [facility] (10/30/2022 2:37 AM CDT) PT 13.6 12.1 - 14.8 Seconds 10/30/2022 3:26 AM CDT [facility] INR 1.0 See Comment 10/30/2022 3:26 AM CDT [facility] Comment:The suggested therap eutic range for standard coumadin (warfarin) therapy is an INR of 2.0-3.0. For high-risk patients (Mechanical Mitral Valve Prosthesis, etc.), the suggested prophylactic therapeutic range is an INR of 2.5-3.5. Blood BLOOD SPECIMEN / Unknown Venipuncture / Unknown 10/30/2022 2:37 AM CDT 10/30/2022 2:46 AM CDT Emir Vail MD LAB - COAGULATION OR DERABLES Performing Organization Address [facility]/ZIP Co de Phone Number [facility] [address] [place] [address], [facility] [phone] * (ABNORMAL) PTT [facility] (10/30/2022 2:37 AM CDT) Pathologist [facility] APTT 77.7(H) 23.0 - 38.4 Seconds 10/30/2022 3:26 AM CDT [facility] Comment:Suggested therapeuti c range for full dose I.V. unfractionated heparin therapy for venous thromboembolism is 71 to 109 seconds. Blood BLOOD SPECIMEN / Unknown Venipuncture / Unknown 10/30/2022 2:37 AM CDT 10/30/2022 2:46 AM CDT Good Antunez MD LAB - COAGULATION OR DERABLES Performing Organization Address [facility] de Phone Number [facility] [address] [place] [address], [facility] [phone] * HCG BETA BLOOD QUANTITATIVE (10/30/2022 12:17 AM CDT) [facility] Beta-hCG Total Quantitative <3 mIU/mL 10/30/2022 1:14 AM CDT [facility] Comment: HCG Numeric Result Interpretation: ? [...] - CHEMISTRY ORD ERABLES Performing Organization Address [facility] de Phone Number [facility] [address] [place] [address], [facility] [phone] * (ABNORMAL) DIFFERENTIAL MANUAL (10/30/2022 12:17 AM T) WBC (corrected for NRBC) 17.9 10? 3 /uL 10/30/2022 1:27 AM [facility] Total Cell Count 100 10/31/19 1:27 AM [facility] Neutrophils Absolute Manual 11.46(H) 1.60 - 7.00 10? 3 /uL 10/30/2022 1:27 AM [facility] Comment:(BANDS+SEGS) x WBC = NEUT # (ANC) Lymphocyte Absolute Manual 4.83(H) 1.10 - 3.90 10? 3 /uL 10/30/2022 1:27 AM [facility] Monocytes Absolute Manual 0.90 0.26 - 1.07 10? 3 /uL 10/30/2022 1:27 AM [facility] Basophil Absolute Manual 0.18(H) 0.00 - 0.08 10? 3 /uL 10/30/2022 1:27 AM [facility] Band % Manual 3 0 - 10 % 10/30/2022 1:27 AM [facility] Neutrophil % Manual 61 35 - 70 % 10/30/2022 1:27 AM [facility] Lymphocyte % Manual 27 20 - 43 % 10/30/2022 1:27 AM [facility] Monocytes % Manual 5 5 - 13 % 10/30/2022 1:27 AM [facility] Basophils % Manual 1 0 - 2 % 10/30/2022 1:27 AM [facility] Metamyelocyte % Manual 1(H) 0 % 10/30/2022 1:27 AM [facility] Myelocytes % Manual 2(H) 0 % 10/30/2022 1:27 AM [facility] nRBC Manual 1(H) 0 /100 WBC 10/30/2022 1:27 AM [facility] Platelet Estimate Increased(A ) Adequate 10/30/2022 1:27 AM [facility] Anisocytosis Occasional( A) None 10/30/2022 1:27 AM [facility] Macrocytosis Few(A) None 10/30/2022 1:27 AM [facility] Polychromasia Few(A) None 10/30/2022 1:27 AM [facility] Rios-Funkley Bodies Rare(A) None 10/30/2022 1:27 AM [facility] Ovalocytes Rare(A) None 10/30/2022 1:27 AM [facility] Eduardo Cells Occasional( A) None 10/30/2022 1:27 AM [facility] Smudge Cells Rare(A) None 10/30/2022 1:27 AM [facility] Comment Platelet Platelet clumpled on the smear but appear increased. 10/30/2022 1:27 AM [facility] Blood BLOOD SPECIMEN / Unknown Venipuncture / Unknown 10/30/2022 12:17 AM CDT 10/30/2022 12:28 AM CDT Emir Vail MD LAB - HEMATOLOGY ORD ERABLES Performing Organization Address [facility] Co de Phone Number [facility] [address] [place] [phone] [phone] * (ABNORMAL) BASIC METABOLIC PANEL (CALCIUM TOTAL) (10/30/2022 12:17 AM CDT) BUN 11 7 - 26 mg/dL 10/30/2022 1:03 AM [facility] Creatinine 0.61 0.56 - 0.96 mg/dL 10/30/2022 1:03 AM [facility] Sodium 141 136 - 145 mmol/L 10/30/2022 1:03 AM [facility] Potassium 4.0 3.5 - 4.5 mmol/L 10/30/2022 1:03 AM [facility] Chloride 107 98 - 107 mmol/L 10/30/2022 1:03 AM [facility] CO2 25 22 - 29 mmol/L 10/30/2022 1:03 AM [facility] Glucose 134(H) 70 - 115 mg/dL 10/30/2022 1:03 AM [facility] Calcium 8.8 8.4 - 10.2 mg/dL 10/30/2022 1:03 AM [facility] Anion Gap 13 8 - 18 10/30/2022 1:03 AM [facility] BUN/Creatinine Ratio 18 7 - 23 10/30/2022 1:03 AM [facility] Osmolality Calculated 293 270 - 300 mOsm/kg 10/30/2022 1:03 AM [facility] eGFR by CKD-EPI >90 >=90 mL/min/1.7 3 m2 10/30/2022 1:03 AM [facility] Blood BLOOD SPECIMEN / Unknown Venipuncture / Unknown 10/30/2022 12:17 AM CDT 10/30/2022 12:29 AM T Emir Vail MD LAB - CHEMISTRY [facility] Organization Address City/State/ZIP Co de Phone Number [facility] [address] [place] [address], [facility] [phone] * (ABNORMAL) CBC W AUTO DIFFERENTIAL (10/30/2022 12:17 AM CDT) WBC 17.9(H) 3.5 - 10.5 10? 3 /uL 10/30/2022 12:45 AM [facility] Comment:The WBC count is cor rected by the instrument for nRBC's RBC 2.53(L) 3.80 - 5.20 10? 6 /uL 10/30/2022 12:45 AM [facility] Hemoglobin 7.6(L) 12.0 - 15.6 g/dL 10/30/2022 12:45 AM [facility] Hematocrit 24.3(L) 35.0 - 45.0 % 10/30/2022 12:45 AM [facility] MCV 96.0 80.7 - 98.3 fL 10/30/2022 12:45 AM [facility] MCH 30.0 26.7 - 34.0 pg 10/30/2022 12:45 AM [facility] MCHC 31.3 30.8 - 35.9 g/dL 10/30/2022 12:45 AM [facility] RDW-SD 47.9 36.0 - 50.0 fL 10/30/2022 12:45 AM CDT [facility] RDW-CV 13.8 11.2 - 14.8 % 10/30/2022 12:45 AM CDT [facility] Platelet Count 586(H) 150 - 400 10? 3 /uL 10/30/2022 12:45 AM CDT [facility] MPV 10.4 9.4 - 12.9 fL 10/30/2022 12:45 AM CDT [facility] nRBC Absolute 0.18(H) 0 10? 3 /uL 10/30/2022 12:45 AM CDT [facility] nRBC Auto 1.0(H) 0 /100 WBC 10/30/2022 12:45 AM CDT [facility] Blood BLOOD SPECIMEN / Unknown Venipuncture / Unknown 10/30/2022 12:17 AM CDT 10/30/2022 12:28 AM CDT Emir Vail MD LAB - HEMATOLOGY ORD ERABLES [address] [address], [facility] [phone] * PHOSPHORUS BLOOD (10/30/2022 12:17 AM CDT) Phosphorus 5.1 2.9 - 5.1 mg/dL 10/30/2022 1:03 AM CDT [facility] Blood BLOOD SPECIMEN / Unknown Venipuncture / Unknown 10/30/2022 12:17 AM CDT 10/30/2022 12:29 AM CDT Emir Vail MD LAB - CHEMISTRY [facility] [address] [address], [place] [phone] * MAGNESIUM BLOOD (10/30/2022 12:17 AM CDT) Magnesium 2.1 1.6 - 2.6 mg/dL 10/30/2022 1:03 AM CDT [facility] Blood BLOOD SPECIMEN / Unknown Venipuncture / Unknown 10/30/2022 12:17 AM CDT 10/30/2022 12:29 AM CDT Emir Vail MD LAB - CHEMISTRY [place] [facility] [address] [place] [id number], [place] [phone] * (ABNORMAL) PTT [facility] (10/29/2022 8:02 PM CDT) APTT 70.7(H) 23.0 - 38.4 Seconds 10/29/2022 8:41 PM CDT [facility] Comment:Suggested therapeuti c range for full dose I.V. unfractionated heparin therapy for venous thromboembolism is 71 to 109 seconds. Blood BLOOD SPECIMEN / Unknown Venipuncture / Unknown 10/29/2022 8:02 PM CDT 10/29/2022 8:14 PM CDT Good Antunez MD LAB - COAGULATION OR DERABLES Performing Organization Address City/[facility]/ZIP Co de Phone Number [address] [address], [place] [phone] * (ABNORMAL) PTT [facility] (10/29/2022 3:41 PM CDT) APTT 64.4(H) 23.0 - 38.4 Seconds 10/29/2022 4:28 PM CDT [facility] Comment:Suggested therapeuti c range for full dose I.V. unfractionated heparin therapy for venous thromboembolism is 71 to 109 seconds. Blood BLOOD SPECIMEN / Unknown Venipuncture / Unknown 10/29/2022 3:41 PM CDT 10/29/2022 3:48 PM CDT Good Antunez MD LAB - COAGULATION OR DERABLES [address] [address], [place] [phone] * TYPE + SCREEN PANEL (10/29/2022 11:19 AM CDT) Antibody Screen NEG 12:14 PM CDT [facility] ABO Rh B POS 10/29/2022 12:14 PM CDT [facility] Blood Bank BLOOD SPECIMEN / Unknown Venipuncture / Unknown 10/29/2022 11:19 AM CDT 10/29/2022 11:32 AM CDT Jim Walter MD LAB - BLOOD BANK OR DERABLES [facility] [address] [place] [address], [facility] [phone] * XR CHEST 1VW PORTABLE (10/29/2022 10:29 AM CDT) Anatomical Region Laterality Modality Chest Radiographic Irene ging 10/29/2022 11:3 8 AM CDT Narrative 10/29/2022 12:59 PM CDT PROCEDURE: ??XR CHEST 1VW PORTABLE, DATE/TIME OF EXAM: ??10/29/2022 10:29 AM, LOCATION ??[facility] INDICATION: R09.02: Hypoxia ADDITIONAL CLINICAL INFORMATION: Ordering Provider Reason For Exam: ??evaluate for hypoxia COMPARISON: Chest x-ray from 10/27/2022 FINDINGS/IMPRESSION: Enteric tube is seen coursing over the diaphragm without visualization of the distal tip. There is no focal consolidation, pleural effusion, or pneumothorax. The cardiomediastinal silhouette is normal. Report dictated by Jacques Russell DO (residential program director). I, Jacques Cole DO have personally reviewed and interpreted this examination/study. > Interpreting Provider: Jacques Cole DO on 10/29/2022 12:59 PM Procedure Note Jacques Cole DO - 10/29/2022 PROCEDURE: XR CHEST 1VW PORTABLE, DATE/TIME OF EXAM: 10/29/2022 10:29AM, LOCATION [facility] INDICATION: R09.02: Hypoxia ADDITIONAL CLINICAL INFORMATION: Ordering Provider Reason For Exam: evaluate for hypoxia COMPARISON: Chest x-ray from 10/27/2022 FINDINGS/IMPRESSION: Enteric tube is seen coursing over the diaphragm without visualizationof the distal tip. There is no focal consolidation, pleural effusion, or pneumothorax. The cardiomediastinal silhouette is normal. Report dictated by Jacques Russell DO (residential program director). I, Jacques Cole DO have personally reviewed and interpreted this examination/study. > Interpreting Provider: Jacques Cole DO on 10/29/2022 12:59 PM Jmi Walter MD DIAGNOSTIC IMAGING ORDERABLES * (ABNORMAL) PTT [facility] (10/29/2022 10:04 AM CDT) APTT 60.5(H) 23.0 - 38.4 Seconds 10/29/2022 10:38 AM CDT [facility] Comment:Suggested therapeuti c range for full dose I.V. unfractionated heparin therapy for venous thromboembolism is 71 to 109 seconds. Blood BLOOD SPECIMEN / Unknown Venipuncture / Unknown 10/29/2022 10:04 AM CDT 10/29/2022 10:11 AM CDT Good Antunez MD LAB - COAGULATION OR DERABLES [facility] [address] [place] [address], [facility] [phone] * PT-INR [facility] (10/29/2022 2:14 AM CDT) PT 13.2 12.1 - 14.8 Seconds 10/29/2022 2:49 AM CDT [facility] INR 1.0 See Comment 10/29/2022 2:49 AM CDT [facility] Comment:The suggested therap eutic range for standard coumadin (warfarin) therapy is an INR of 2.0-3.0. For high-risk patients (Mechanical Mitral Valve Prosthesis, etc.), the suggested prophylactic therapeutic range is an INR of 2.5-3.5. Blood BLOOD SPECIMEN / Unknown Venipuncture / Unknown 10/29/2022 2:14 AM CDT 10/29/2022 2:24 AM CDT Emir Vail MD LAB - COAGULATION OR DERABLES Performing Organization Address [facility]/ZIP Co de Phone Number [address] [address], [facility] [phone] * (ABNORMAL) PTT [facility] (10/29/2022 2:14 AM CDT) Pathologist [facility] APTT 60.3(H) 23.0 - 38.4 Seconds 10/29/2022 2:49 AM CDT [facility] Comment:Suggested therapeuti c range for full dose I.V. unfractionated heparin therapy for venous thromboembolism is 71 to 109 seconds. Blood BLOOD SPECIMEN / Unknown Venipuncture / Unknown 10/29/2022 2:14 AM CDT 10/29/2022 2:24 AM CDT Good Antunez MD LAB - COAGULATION OR DERABLES Performing Organization Address [facility] Co de Phone Number [address] [address], [facility] [phone] * (ABNORMAL) DIFFERENTIAL MANUAL (10/29/2022 12:10 AM CDT) [facility] WBC (corrected for NRBC) 21.3 10? 3 /uL 10/29/2022 1:20 AM CDT [facility] Total Cell Count 100 10/30/19 23 1:20 AM T [facility] Neutrophils Absolute Manual 13.42(H) 1.60 - 7.00 10? 3 /uL 10/29/2022 1:20 AM T [facility] Comment:(BANDS+SEGS) x WBC = NEUT # (ANC) Lymphocyte Absolute Manual 4.90(H) 1.10 - 3.90 10? 3 /uL 10/29/2022 1:20 AM T [facility] Monocytes Absolute Manual 1.92(H) 0.26 - 1.07 10? 3 /uL 10/29/2022 1:20 AM T [facility] Eosinophils Absolute Manual 0.64(H) 0.00 - 0.47 10? 3 /uL 10/29/2022 1:20 AM [facility] Band % Manual 3 0 - 10 % 10/29/2022 1:20 AM [facility] Neutrophil % Manual 60 35 - 70 % 10/29/2022 1:20 AM [facility] Lymphocyte % Manual 23 20 - 43 % 10/29/2022 1:20 AM [facility] Monocytes % Manual 9 5 - 13 % 10/29/2022 1:20 AM [facility] Eosinophils % Manual 3 0 - 6 % 10/29/2022 1:20 AM [facility] Metamyelocyte % Manual 2(H) 0 % 10/29/2022 1:20 AM [facility] nRBC Manual 1(H) 0 /100 WBC 10/29/2022 1:20 AM [facility] Platelet Estimate Increased (A) Adequate 10/29/2022 1:20 AM [facility] Macrocytosis 1+(A) None 10/29/2022 1:20 AM [facility] Polychromasia 1+(A) None 10/29/2022 1:20 AM [facility] Blood BLOOD SPECIMEN / Unknown Venipuncture / Unknown 10/29/2022 12:10 AM CDT 10/29/2022 12:16 AM CDT Emir Vail MD LAB - HEMATOLOGY ORD ERABLES Performing Organization Address City/State/[facility] Co de Phone Number [facility] [address] [place] [phone], [facility] [phone] * (ABNORMAL) BASIC METABOLIC PANEL (CALCIUM TOTAL) (10/29/2022 12:10 AM CDT) BUN 9 7 - 26 mg/dL 10/29/2022 12:44 AM [facility] Creatinine 0.54(L) 0.56 - 0.96 mg/dL 10/29/2022 12:44 AM [facility] Sodium 138 136 - 145 mmol/L 10/29/2022 12:44 AM [facility] Potassium 4.1 3.5 - 4.5 mmol/L 10/29/2022 12:44 AM [facility] Chloride 106 98 - 107 mmol/L 10/29/2022 12:44 AM [facility] CO2 24 22 - 29 mmol/L 10/29/2022 12:44 AM [facility] Glucose 110 70 - 115 mg/dL 10/29/2022 12:44 AM [facility] Calcium 8.8 8.4 - 10.2 mg/dL 10/29/2022 12:44 AM [facility] Anion Gap 12 8 - 18 10/29/2022 12:44 AM [facility] BUN/Creatinine Ratio 17 7 - 23 10/29/2022 12:44 AM [facility] Osmolality Calculated 285 270 - 300 mOsm/kg 10/29/2022 12:44 AM [facility] eGFR by CKD-EPI >90 >=90 mL/min/1.7 3 m2 10/29/2022 12:44 AM [facility] Blood BLOOD SPECIMEN / Unknown Venipuncture / Unknown 10/29/2022 12:10 AM CDT 10/29/2022 12:17 AM T Emir Vail MD LAB - CHEMISTRY [facility] Organization Address City/State/[facility] Co de Phone Number [facility] [address] [place] [phone], [facility] [phone] * (ABNORMAL) CBC W AUTO DIFFERENTIAL (10/29/2022 12:10 AM CDT) WBC 21.3(H) 3.5 - 10.5 10? 3 /uL 10/29/2022 12:32 AM [facility] RBC 2.54(L) 3.80 - 5.20 10? 6 /uL 10/29/2022 12:32 AM [facility] Hemoglobin 7.8(L) 12.0 - 15.6 g/dL 10/29/2022 12:32 AM [facility] Hematocrit 24.4(L) 35.0 - 45.0 % 10/29/2022 12:32 AM [facility] MCV 96.1 80.7 - 98.3 fL 10/29/2022 12:32 AM CDT [facility] MCH 30.7 26.7 - 34.0 pg 10/29/2022 12:32 AM T [facility] MCHC 32.0 30.8 - 35.9 g/dL 10/29/2022 12:32 AM [facility] RDW-SD 47.9 36.0 - 50.0 fL 10/29/2022 12:32 AM [facility] RDW-CV 14.0 11.2 - 14.8 % 10/29/2022 12:32 AM [facility] Platelet Count 584(H) 150 - 400 10? 3 /uL 10/29/2022 12:32 AM T [facility] MPV 10.0 9.4 - 12.9 fL 10/29/2022 12:32 AM [facility] nRBC Absolute 0.13(H) 0 10? 3 /uL 10/29/2022 12:32 AM [facility] nRBC Auto 0.6(H) 0 /100 WBC 10/29/2022 12:32 AM [facility] Blood BLOOD SPECIMEN / Unknown Venipuncture / Unknown 10/29/2022 12:10 AM CDT 10/29/2022 12:16 AM CDT Emir Vail MD LAB - HEMATOLOGY ORD JINBLES [facility] [address] [place] [address], [facility] [phone] * PHOSPHORUS BLOOD (10/29/2022 12:10 AM CDT) Phosphorus 4.8 2.9 - 5.1 mg/dL 10/29/2022 12:44 AM T [facility] Blood BLOOD SPECIMEN / Unknown Venipuncture / Unknown 10/29/2022 12:10 AM CDT 10/29/2022 12:17 AM CDT Emir Vail MD LAB - CHEMISTRY ORDE HIRAL [facility] [address] [place] [address], [facility] [phone] * MAGNESIUM BLOOD (10/29/2022 12:10 AM CDT) Magnesium 2.0 1.6 - 2.6 mg/dL 10/29/2022 12:44 AM CDT [facility] Blood BLOOD SPECIMEN / Unknown Venipuncture / Unknown 10/29/2022 12:10 AM CDT 10/29/2022 12:17 AM CDT Emir Vail MD LAB - CHEMISTRY ORDE HIRAL [address] [address], [facility] [phone] * XR ABDOMEN KUB (10/28/2022 11:13 PM CDT) Anatomical Region Laterality Modality Abdomen Radiographic Irene ging 10/29/2022 10:0 5 AM CDT Narrative 10/29/2022 12:49 PM CDT PROCEDURE: ??XR ABDOMEN KUB, DATE/TIME OF EXAM: ??10/28/2022 11:13 PM, LOCATION ??[facility] 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 Report dictated by Jacques Russell DO (residential program director). IJacques DO have personally reviewed and interpreted this examination/study. 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 Report dictated by Jacques Russell DO (residential program director). I, Jacques Cole DO have personally reviewed and interpreted this examination/study. > Interpreting Provider: Jacques Cole DO on 10/29/2022 12:49 PM Jim Walter MD DIAGNOSTIC IMAGING ORDERABLES * GLUCOSE - POINT OF CARE (10/28/2022 10:54 PM CDT) Glucose WB/POC 105 70 - 115 mg/dL 10/28/2022 10:54 PM CDT [facility] Specimen Type Cap Fingerstick 2022 10:54 PM CDT [facility] Blood BLOOD SPECIMEN / Unknown 10/28/2022 10:54 PM CDT 10/28/2022 10:54 PM CDT Jim Walter MD LAB - POINT OF CARE ORDERABLES [address] [address], [place] [phone] * (ABNORMAL) PTT [facility] (10/28/2022 9:00 PM CDT) APTT 62.1(H) 23.0 - 38.4 Seconds 10/28/2022 9:34 PM CDT [facility] Comment:Suggested therapeuti c range for full dose I.V. unfractionated heparin therapy for venous thromboembolism is 71 to 109 seconds. Blood BLOOD SPECIMEN / Unknown Venipuncture / Unknown 10/28/2022 9:00 PM CDT 10/28/2022 9:11 PM CDT Good Antunez MD LAB - COAGULATION OR DERABLES [address] [address], [place] [phone] * (ABNORMAL) GLUCOSE - POINT OF CARE (10/28/2022 5:26 PM CDT) Glucose WB/POC 118(H) 70 - 115 mg/dL 10/28/2022 5:38 PM CDT [facility] Specimen Type Cap Fingerstick 2022 5:38 PM CDT [facility] Blood BLOOD SPECIMEN / Unknown 10/28/2022 5:26 PM CDT 10/28/2022 5:38 PM CDT Jim Walter MD LAB - POINT OF CARE ORDERABLES Performing Organization Address City/[facility]/ZIP Co de Phone Number [address] [address], [place] [phone] * (ABNORMAL) PTT [facility] (10/28/2022 3:54 PM CDT) APTT 63.4(H) 23.0 - 38.4 Seconds 10/28/2022 4:32 PM CDT [facility] Comment:Suggested therapeuti c range for full dose I.V. unfractionated heparin therapy for venous thromboembolism is 71 to 109 seconds. Blood BLOOD SPECIMEN / Unknown Venipuncture / Unknown 10/28/2022 3:54 PM CDT 10/28/2022 4:10 PM CDT Good Antunez MD LAB - COAGULATION OR DERABLES [address] [address], [place] [phone] * (ABNORMAL) GLUCOSE - POINT OF CARE (10/28/2022 12:05 PM CDT) Glucose WB/POC 125(H) 70 - 115 mg/dL 10/28/2022 12:12 PM CDT [facility] Specimen Type Cap Fingerstick 2022 12:12 PM CDT [facility] Blood BLOOD SPECIMEN / Unknown 10/28/2022 12:05 PM CDT 10/28/2022 12:12 PM CDT Jim Walter MD LAB - POINT OF CARE ORDERABLES Performing Organization Address [facility] Co de Phone Number [address] [address], [facility] [phone] * (ABNORMAL) PTT [facility] (10/28/2022 9:20 AM CDT) APTT 72.8(H) 23.0 - 38.4 Seconds 10/28/2022 9:53 AM CDT [facility] Comment:Suggested therapeuti c range for full dose I.V. unfractionated heparin therapy for venous thromboembolism is 71 to 109 seconds. Blood BLOOD SPECIMEN / Unknown Venipuncture / Unknown 10/28/2022 9:20 AM CDT 10/28/2022 9:27 AM CDT Good Antunez MD LAB - COAGULATION OR DERABLES Performing Organization Address [facility] Co de Phone Number [address] [address], [facility] [phone] * VANCOMYCIN LEVEL TROUGH (10/28/2022 9:20 AM CDT) Pathologist [facility] Vancomycin Trough 16.5 10.0 - 20.0 ug/mL 10/28/2022 10:29 AM CDT [facility] Blood BLOOD SPECIMEN / Unknown Venipuncture / Unknown 10/28/2022 9:20 AM CDT 10/28/2022 9:25 AM CDT Narrative [facility] - 10/28/2022 10:29 AM CDT See institution protocol. Dary Garvey MD LAB - CHEMISTRY [facility] Performing Organization Address [facility] Co de Phone Number [address] [address], [facility] [phone] * CT HEAD WO CONTRAST (10/28/2022 5:27 [...] is dictated by Kayla Stevenson MD (residential program director) 1 I, Lonnie Rae MD have personally reviewed and interpreted this examination/study. > Interpreting Provider: Lonnie Rae MD on 10/28/2022 9:15 AM Narrative 10/28/2022 9:15 AM CDT PROCEDURE: ??CT HEAD WO CONTRAST, DATE/TIME OF EXAM: ??10/28/2022 5:28 AM, LOCATION ??[facility] INDICATION: Z91.89: At high risk for [...] DATE/TIME OF EXAM: 10/28/2022 5:28 AM, LOCATION [facility] INDICATION: Z91.89: At high risk for [...] is dictated by Kayla Stevenson MD (residential program director) 1 Lonnie Ornelas MD have personally reviewed and interpreted this examination/study. > Interpreting Provider: Lonnie Rae MD on 10/28/2022 9:15 AM Emir Vail MD CT ORDERABLES * (ABNORMAL) GLUCOSE - POINT OF CARE (10/28/2022 4:52 AM CDT) Glucose WB/POC 151(H) 70 - 115 mg/dL 10/28/2022 4:57 AM CDT [facility] Specimen Type Cap Fingerstick 2022 4:57 AM CDT [facility] Blood BLOOD SPECIMEN / Unknown 10/28/2022 4:52 AM CDT 10/28/2022 4:57 AM CDT Jim Walter MD LAB - POINT OF CARE ORDERABLES [address] [address], [facility] [phone] * XR ABDOMEN KUB PORTABLE (10/28/2022 2:08 [...] Report dictated by Martell Shetty MD (residential program director). IJacques DO have personally reviewed and interpreted this examination/study. 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 FINDINGS/IMPRESSION: Enteric tube courses below the diaphragm with the distal tipsuperimposing the antropyloric region. Report dictated by Martell Shetty MD (residential program director). I, Jacques Cole DO have personally reviewed and interpreted this examination/study. > Interpreting Provider: Jacques Cole DO on 10/28/2022 12:24 PM Jim Walter MD DIAGNOSTIC IMAGING ORDERABLES * (ABNORMAL) PTT [facility] (10/28/2022 1:25 AM CDT) APTT 81.6(H) 23.0 - 38.4 Seconds 10/28/2022 1:55 AM CDT [facility] Comment:Suggested therapeuti c range for full dose I.V. unfractionated heparin therapy for venous thromboembolism is 71 to 109 seconds. Blood BLOOD SPECIMEN / Unknown Venipuncture / Unknown 10/28/2022 1:25 AM CDT 10/28/2022 1:31 AM CDT Good Antunez MD LAB - COAGULATION OR DERABLES Performing Organization Address [facility] Co de Phone Number [address] [address], [place] [phone] * PT-INR [facility] (10/28/2022 1:25 AM CDT) PT 13.6 12.1 - 14.8 Seconds 10/28/2022 1:55 AM CDT [facility] INR 1.0 See Comment 10/28/2022 1:55 AM CDT [facility] Comment:The suggested therap eutic range for standard coumadin (warfarin) therapy is an INR of 2.0-3.0. For high-risk patients (Mechanical Mitral Valve Prosthesis, etc.), the suggested prophylactic therapeutic range is an INR of 2.5-3.5. Blood BLOOD SPECIMEN / Unknown Venipuncture / Unknown 10/28/2022 1:25 AM CDT 10/28/2022 1:31 AM CDT Emir Vail MD LAB - COAGULATION OR DERABLES Performing Organization Address [facility]/ZIP Co de Phone Number [address] [address], [facility] [phone] * (ABNORMAL) BASIC METABOLIC PANEL (CALCIUM TOTAL) (10/28/2022 1:25 AM CDT) Pathologist [facility] BUN 9 7 - 26 mg/dL 10/28/2022 1:57 AM [facility] Creatinine 0.54(L) 0.56 - 0.96 mg/dL 10/28/2022 1:57 AM [facility] Sodium 138 136 - 145 mmol/L 10/28/2022 1:57 AM [facility] Potassium 3.5 3.5 - 4.5 mmol/L 10/28/2022 1:57 AM [facility] Chloride 106 98 - 107 mmol/L 10/28/2022 1:57 AM [facility] CO2 26 22 - 29 mmol/L 10/28/2022 1:57 AM [facility] Glucose 134(H) 70 - 115 mg/dL 10/28/2022 1:57 AM [facility] Calcium 8.6 8.4 - 10.2 mg/dL 10/28/2022 1:57 AM [facility] Anion Gap 10 8 - 18 10/28/2022 1:57 AM [facility] BUN/Creatinine Ratio 17 7 - 23 10/28/2022 1:57 AM [facility] Osmolality Calculated 287 270 - 300 mOsm/kg 10/28/2022 1:57 AM [facility] eGFR by CKD-EPI >90 >=90 mL/min/1.7 3 m2 10/28/2022 1:57 AM [facility] Blood BLOOD SPECIMEN / Unknown Venipuncture / Unknown 10/28/2022 1:25 AM CDT 10/28/2022 1:31 AM T Emir Vail MD LAB - CHEMISTRY [facility] Organization Address City/State/ZIP Co de Phone Number [facility] [address] [place] [address], [facility] [phone] * PHOSPHORUS BLOOD (10/28/2022 1:25 AM CDT) Pathologist [facility] Phosphorus 3.9 2.9 - 5.1 mg/dL 10/28/2022 1:57 AM CDT [facility] Blood BLOOD SPECIMEN / Unknown Venipuncture / Unknown 10/28/2022 1:25 AM CDT 10/28/2022 1:31 AM CDT Emir Vail MD LAB - CHEMISTRY [facility] [address] [address], [place] [phone] * MAGNESIUM BLOOD (10/28/2022 1:25 AM CDT) Magnesium 2.0 1.6 - 2.6 mg/dL 10/28/2022 1:57 AM CDT [facility] Blood BLOOD SPECIMEN / Unknown Venipuncture / Unknown 10/28/2022 1:25 AM CDT 10/28/2022 1:31 AM CDT Emir Vail MD LAB - CHEMISTRY ORDDanyelle BLACKMAN Performing Organization Address City/[facility]/ZIP Co de Phone Number [address] [address], [place] [phone] * (ABNORMAL) GLUCOSE - POINT OF CARE (10/28/2022 1:24 AM CDT) Glucose WB/POC 143(H) 70 - 115 mg/dL 10/28/2022 1:29 AM CDT [facility] Specimen Type Cap Fingerstick 2022 1:29 AM CDT [facility] Blood BLOOD SPECIMEN / Unknown 10/28/2022 1:24 AM CDT 10/28/2022 1:29 AM CDT Jim Walter MD LAB - POINT OF CARE ORDERABLES Performing Organization Address City/[facility]/ZIP Co de Phone Number [address] [address], [place] [phone] * (ABNORMAL) DIFFERENTIAL MANUAL (10/27/2022 8:29 PM CDT) WBC (corrected for NRBC) 21.1 10? 3 /uL 10/27/2022 9:20 PM [facility] Total Cell Count 100 10/28/19 9:20 PM [facility] Neutrophils Absolute Manual 12.87(H) 1.60 - 7.00 10? 3 /uL 10/27/2022 9:20 PM [facility] Comment:(BANDS+SEGS) x WBC = NEUT # (ANC) Lymphocyte Absolute Manual 5.91(H) 1.10 - 3.90 10? 3 /uL 10/27/2022 9:20 PM [facility] Monocytes Absolute Manual 1.48(H) 0.26 - 1.07 10? 3 /uL 10/27/2022 9:20 PM [facility] Eosinophils Absolute Manual 0.42 0.00 - 0.47 10? 3 /uL 10/27/2022 9:20 PM [facility] Band % Manual 1 0 - 10 % 10/27/2022 9:20 PM [facility] Neutrophil % Manual 60 35 - 70 % 10/27/2022 9:20 PM [facility] Lymphocyte % Manual 28 20 - 43 % 10/27/2022 9:20 PM [facility] Monocytes % Manual 7 5 - 13 % 10/27/2022 9:20 PM [facility] Eosinophils % Manual 2 0 - 6 % 10/27/2022 9:20 PM [facility] Atypical Lymphocyte % Manual 1(H) 0 % 10/27/2022 9:20 PM [facility] Metamyelocyte % Manual 1(H) 0 % 10/27/2022 9:20 PM [facility] nRBC Manual 2(H) 0 /100 WBC 10/27/2022 9:20 PM [facility] Platelet Estimate Slightly Increased(A ) Adequate 10/27/2022 9:20 PM [facility] Anisocytosis Occasional( A) None 10/27/2022 9:20 PM [facility] Polychromasia Few(A) None 10/27/2022 9:20 PM [facility] Ovalocytes Occasional( A) None 10/27/2022 9:20 PM CDT [facility] [place] Cells Occasional( A) None 10/27/2022 9:20 PM [facility] Blood BLOOD SPECIMEN / Unknown Venipuncture / Unknown 10/27/2022 8:29 PM CDT 10/27/2022 8:36 PM CDT Jim Walter MD LAB - HEMATOLOGY OR DERABLES Performing Organization Address [facility]/State/[facility] Co de Phone Number [facility] [address] [place] [address], [facility] [phone] * (ABNORMAL) CBC W AUTO DIFFERENTIAL (10/27/2022 8:29 PM CDT) WBC 21.1(H) 3.5 - 10.5 10? 3 /uL 10/27/2022 8:54 PM [facility] RBC 2.52(L) 3.80 - 5.20 10? 6 /uL 10/27/2022 8:54 PM [facility] Hemoglobin 7.6(L) 12.0 - 15.6 g/dL 10/27/2022 8:54 PM [facility] Hematocrit 24.2(L) 35.0 - 45.0 % 10/27/2022 8:54 PM [facility] MCV 96.0 80.7 - 98.3 fL 10/27/2022 8:54 PM [facility] MCH 30.2 26.7 - 34.0 pg 10/27/2022 8:54 PM [facility] MCHC 31.4 30.8 - 35.9 g/dL 10/27/2022 8:54 PM [facility] RDW-SD 47.9 36.0 - 50.0 fL 10/27/2022 8:54 PM [facility] RDW-CV 13.8 11.2 - 14.8 % 10/27/2022 8:54 PM [facility] Platelet Count 486(H) 150 - 400 10? 3 /uL 10/27/2022 8:54 PM [facility] MPV 10.6 9.4 - 12.9 fL 10/27/2022 8:54 PM CDT [facility] nRBC Absolute 0.11(H) 0 10? 3 /uL 10/27/2022 8:54 PM CDT [facility] nRBC Auto 0.5(H) 0 /100 WBC 10/27/2022 8:54 PM CDT [facility] Blood BLOOD SPECIMEN / Unknown Venipuncture / Unknown 10/27/2022 8:29 PM CDT 10/27/2022 8:36 PM CDT Jim Walter MD LAB - HEMATOLOGY OR DERABLES Performing Organization Address [facility]/ZIP Co de Phone Number [address] [address], [facility] [phone] * (ABNORMAL) PTT [facility] (10/27/2022 6:55 PM CDT) APTT 96.4(H) 23.0 - 38.4 Seconds 10/27/2022 7:28 PM CDT [facility] Comment:Suggested therapeuti c range for full dose I.V. unfractionated heparin therapy for venous thromboembolism is 71 to 109 seconds. Blood BLOOD SPECIMEN / Unknown Venipuncture / Unknown 10/27/2022 6:55 PM CDT 10/27/2022 7:06 PM CDT Jim Walter MD LAB - COAGULATION O RDERABLES Performing Organization Address [facility]/ZIP Co de Phone Number [address] [address], [place] [phone] * ANTITHROMBIN III ACTIVITY (10/27/2022 6:55 PM CDT) Antithrombin III Activity 91.0 80.0 - 120.0 % 10/27/2022 7:42 PM CDT [facility] Blood BLOOD SPECIMEN / Unknown Venipuncture / Unknown 10/27/2022 6:55 PM CDT 10/27/2022 7:06 PM CDT Narrative [facility] - 10/27/2022 7:42 PM CDT Thrombin inhibitors (i.e., hirudin, argatroban...) present in the sample to be tested may lead to an over-estimation of the AT level. Shahbaz Bowen MD LAB - COAGULATION OR DERABLES Performing Organization Address [facility]/ZIP Co de Phone Number [address] [address], [place] [phone] * (ABNORMAL) GLUCOSE - POINT OF CARE (10/27/2022 4:56 PM CDT) Pathologist [facility] Glucose WB/POC 143(H) 70 - 115 mg/dL 10/27/2022 4:57 PM CDT [facility] Specimen Type Cap Fingerstick 2022 4:57 PM CDT [facility] Blood BLOOD SPECIMEN / Unknown 10/27/2022 4:56 PM CDT 10/27/2022 4:57 PM CDT Jim Walter MD LAB - POINT OF CARE ORDERABLES Performing Organization Address [facility]/ZIP Co de Phone Number [address] [address], [place] [phone] * CULTURE URINE (10/27/2022 12:08 PM CDT) Pathologist [facility] Culture Urine No growth (<100 CFU/mL) ROSELIA 10/28/2022 10:36 PM CDT [facility] MICROBIOLOGY Urine URINE SPECIMEN OBTAINED BY CLEAN CATCH PROCEDURE / Unknown Collection / Unknown 10/27/2022 12:08 PM CDT 10/27/2022 12:17 PM CDT Emir Vail MD LAB - MICROBIOLOGY O RDERABLES Performing Organization Address City/[facility]/ZIP Co de Phone Number [facility]CRO[facility] [address] [place] [address], [place] [phone] * (ABNORMAL) URINALYSIS REFLEX MICROSCOPIC REFLEX CULTURE (10/27/2022 12:08 PM CDT) Color UA Yellow Straw, Yellow 10/27/2022 1:14 PM CDT [facility] Clarity UA t Cloudy(A) Clear 10/27/2022 1:14 PM CDT [facility] Specific [place] UA 1.018 1.005 - 1.030 10/27/2022 1:14 PM CDT [facility] pH UA 6.0 5.0 - 8.0 pH 10/27/2022 1:14 PM CDT [facility] Protein UA Negative Negative 10/27/2022 1:14 PM CDT [facility] Glucose UA Negative Negative 10/27/2022 1:14 PM CDT [facility] Ketone UA Negative Negative 10/27/2022 1:14 PM CDT [facility] Bilirubin UA Negative Negative 10/27/2022 1:14 PM CDT [facility] Blood UA Negative Negative 10/27/2022 1:14 PM CDT [facility] Nitrite UA Negative Negative 10/27/2022 1:14 PM CDT [facility] Leukocyte Esterase Negative Negative 10/27/2022 1:14 PM CDT [facility] Urobilinogen UA Negative Negative mg/dL 10/27/2022 1:14 PM CDT [facility] Comment UA Microscopic not indicated. 10/27/2022 1:14 PM CDT [facility] Urine URINE SPECIMEN OBTAINED BY CLEAN CATCH PROCEDURE / Unknown Collection / Unknown 10/27/2022 12:08 PM CDT 10/27/2022 12:17 PM CDT Narrative [facility] - 10/27/2022 1:14 PM CDT Emir Vail MD LAB - URINALYSIS ORD ERABLES [facility] [address] [place] [address], [facility] [phone] * MYCOPLASMA PNEUMONIAE AB IGM (10/27/2022 11:58 AM CDT) Mycoplasma Antibody IgM 0.09 <=0.76 U/L 10/29/2022 11:24 PM CDT [facility] ([facility]) Comment: INTERPRETIVE INFORMATION: ??Mycoplasma pneumoniae Ab, IgM [...] more ?than 12 months post-infection. Performed By: [facility] [address] [place] [address] Bilingual Receptionist: Boo Bond MD, PhD CLIA Number: [id number] Blood BLOOD SPECIMEN / Unknown Venipuncture / Unknown 10/27/2022 11:58 AM CDT 10/27/2022 12:17 PM CDT Emir Vail MD LAB - SEROLOGY ORDER NISSA [facility] [employer] ([facility]) [address] [place] [address], [facility] * MYCOPLASMA PNEUMONIAE AB IGG (10/27/2022 11:58 AM CDT) Pathologist [facility] Mycoplasma Antibody IgG 0.05 <=0.09 U/L 10/29/2022 11:24 PM CDT [facility] ([facility]) Comment: INTERPRETIVE INFORMATION: ??Mycoplasma pneumoniae Ab, IgG [...] other is below 0.20 U/L. Performed By: [facility] [address] [place] [address] Bilingual Receptionist: Boo Bond MD, PhD CLIA Number: [id number] Blood BLOOD SPECIMEN / Unknown Venipuncture / Unknown 10/27/2022 11:58 AM CDT 10/27/2022 12:16 PM CDT Emir Vail MD LAB - SEROLOGY ORDER NISSA [facility] [address] [place] [address], [facility] * CHLAMYDIA ANTIBODY IGG/IGM PANEL (10/27/2022 11:58 AM CDT) C Pneumoniae Antibody IgG Titer <1:64 <1:64 10/29/2022 8:32 PM CDT [facility] ([facility]) Chlamydia Pneumoniae Antibody IgM Titer <1:20 <1:20 10/29/2022 8:32 PM CDT [facility] Chlamydia trachomatis Antibody IgM Titer <1:20 <1:20 10/29/2022 8:32 PM CDT [facility] Chlamydia psittacI Antibody IgM Titer <1:20 <1:20 10/29/2022 8:32 PM CDT [facility] Chlamydia trachomatis Antibody IgG Titer <1:64 <1:64 10/29/2022 8:32 PM CDT [facility] ([facility]) Chlamydia psittacI Antibody IgG Titer <1:64 <1:64 10/29/2022 8:32 PM CDT [facility] ([facility]) Comment: INTERPRETIVE INFORMATION: C. psittaci IgG Titer [...] developed and its performance characteristics determined by [employer]. It has not been cleared or approved by the US Food and Drug Administration. This test was performed in a CLIA certified laboratory and is intended for clinical purposes. Performed By: [facility] [address] [place] [address] Bilingual Receptionist: Boo Bond MD, PhD CLIA Number: [id number] Blood BLOOD SPECIMEN / Unknown Venipuncture / Unknown 10/27/2022 11:58 AM CDT 10/27/2022 12:17 PM CDT Emir Vail MD LAB - CHEMISTRY BIBIANA BLACKMAN [employer] ([facility]) [address] [place] [address], [facility] * Q FEVER IGG/IGM AB PANEL RFLX TITER (10/27/2022 11:58 AM CDT) [facility] Coxiella burnetii Antibody IgG Phase 1 Screen Negative Negative 10/31/2022 12:29 AM CDT [employer] ([facility]) Comment: INTERPRETIVE INFORMATION: C. Burnetii Abs, IgG [...] Negative Negative 10/31/2022 12:29 AM [facility] ([facility]) Comment: INTERPRETIVE INFORMATION: C. Burnetii Abs, IgG [...] Negative Negative 10/31/2022 12:29 AM [facility] ([facility]) Comment: Coxiella burnetii (Q-Fever) Antibody IgM, Phase [...] Negative Negative 10/31/2022 12:29 AM [facility] ([facility]) Comment: Coxiella burnetii (Q-Fever) Antibody IgM, Phase [...] acute infection or during convalescence. Performed By: [facility] [address] [place] [address] Bilingual Receptionist: Boo Bond MD, PhD CLIA Number: [id number] Blood BLOOD SPECIMEN / Unknown Venipuncture / Unknown 10/27/2022 11:58 AM CDT 10/27/2022 12:16 PM CDT Emir Vail MD LAB - SEROLOGY ORDER NISSA [facility] [address] [place] [address] * BARTONELLA SPECIES PCR (10/27/2022 11:58 AM CDT) [facility] Bartonella Source Plasma 023 3:38 PM CDT [facility] Bartonella Species by PCR Not Detected 2022 3:38 PM CDT [facility] Comment: NOT DETECTED - A negative result does not rule out the presence of PCR inhibitors in the patient specimen or assay specific nucleic acid in concentrations below the level of detection by the assay. INTERPRETIVE INFORMATION: Bartonella Species Detection by PCR This test was developed and its performance characteristics determined by [employer]. It has not been cleared or approved by the US Food and Drug Administration. This test was performed in a CLIA certified laboratory and is intended for clinical purposes. Performed By: [facility] [address] [place] [address] Bilingual Receptionist: Boo Bond MD, PhD CLIA Number: [id number] Blood BLOOD SPECIMEN / Unknown Venipuncture / Unknown 10/27/2022 11:58 AM CDT 10/27/2022 12:16 PM CDT Emir Vail MD LAB - MICROBIOLOGY O RDERABLES [facility] [employer] ([facility]) [address] [place] [address], [facility] * BARTONELLA HENSELAE ANTIBODY IGG (10/27/2022 11:58 AM CDT) Bartonella henselae Antibody IgG <1:64 10/29/2022 8:[address] [facility] [employer] ([facility]) Comment: INTERPRETIVE INFORMATION: Bartonella henselae Ab, IgG [...] developed and its performance characteristics determined by [facility]. It has not been cleared or approved by the US Food and Drug Administration. This test was performed in a CLIA certified laboratory and is intended for clinical purposes. Performed By: [facility] [address] [place] [address] Bilingual Receptionist: Boo Bond MD, PhD CLIA Number: [id number] Blood BLOOD SPECIMEN / Unknown Venipuncture / Unknown 10/27/2022 11:58 AM CDT 10/27/2022 12:16 PM CDT Emir Vail MD LAB - SEROLOGY ORDER NISSA [facility] [address] [place] [address], [facility] * BARTONELLA HENSELAE ANTIBODY IGM (10/27/2022 11:58 AM CDT) Bartonella henselae Antibody IgM < 1:16 10/29/2022 8:33 PM CDT [facility] ([facility]) Comment: INTERPRETIVE INFORMATION: Bartonella henselae Antibody, IgM [...] developed and its performance characteristics determined by [employer]. It has not been cleared or approved by the US Food and Drug Administration. This test was performed in a CLIA certified laboratory and is intended for clinical purposes. Performed By: [facility] [employer] [address] [place] [address] Bilingual Receptionist: Boo Bond MD, PhD CLIA Number: [id number] Blood BLOOD SPECIMEN / Unknown Venipuncture / Unknown 10/27/2022 11:58 AM CDT 10/27/2022 12:16 PM CDT Emir Vail MD LAB - SEROLOGY ORDER NISSA Performing Organization Address City/[facility] Co de Phone Number [facility] ([facility]) [address] [place], [place] [id number] * CULTURE BLOOD AFB (10/27/2022 11:58 AM CDT) Culture No acid-fast bacillus isolated 12/04/2022 6:56 AM CDT [facility]CRO[facility] Blood PERIPHERAL BLOOD / Unknown Venipuncture / Unknown 10/27/2022 11:58 AM CDT 10/27/2022 12:13 PM CDT Emir Vail MD LAB - MICROBIOLOGY O RDERABLES Performing Organization Address [facility] Co de Phone Number [facility] [address] [place] [address], [facility] [phone] * CULTURE BLOOD FUNGUS (10/27/2022 11:58 AM CDT) Culture No fungus isolated ROSELIA 12/04/2022 6:38 AM CDT [facility] Blood PERIPHERAL BLOOD / Unknown Venipuncture / Unknown 10/27/2022 11:58 AM CDT 10/27/2022 12:13 PM CDT Emir Vail MD LAB - MICROBIOLOGY O RDERABLES Performing Organization Address City/[facility]/ZIP Co de Phone Number [facility] [address] [place] [address] [phone] * (ABNORMAL) PTT [facility] (10/27/2022 11:58 AM CDT) APTT 44.7(H) 23.0 - 38.4 Seconds 10/27/2022 1:19 PM CDT [facility] Comment:Suggested therapeuti c range for full dose I.V. unfractionated heparin therapy for venous thromboembolism is 71 to 109 seconds. Blood BLOOD SPECIMEN / Unknown Venipuncture / Unknown 10/27/2022 11:58 AM CDT 10/27/2022 12:39 PM CDT Emir Vail MD LAB - COAGULATION OR DERABLES [facility] [address] [place] [address], [facility] [phone] * (ABNORMAL) GLUCOSE - POINT OF CARE (10/27/2022 11:13 AM CDT) Pathologist [facility] Glucose WB/POC 140(H) 70 - 115 mg/dL 10/27/2022 11:16 AM CDT [facility] Specimen Type Cap Fingerstick 2022 11:16 AM CDT [facility] Blood BLOOD SPECIMEN / Unknown 10/27/2022 11:13 AM CDT 10/27/2022 11:16 AM CDT Emir Vail MD LAB - POINT OF CARE ORDERABLES [facility] [address] [place] [address], [place] [phone] * XR CHEST 1VW PORTABLE (10/27/2022 10:19 AM CDT) Anatomical Region Laterality Modality Chest Radiographic Irene ging 10/27/2022 1:44 PM CDT Narrative 10/27/2022 2:58 PM CDT PROCEDURE: ??XR CHEST 1VW PORTABLE, DATE/TIME OF EXAM: ??10/27/2022 10:19 AM, LOCATION ??[facility] INDICATION: D72.829: Leukocytosis, unspecified type ADDITIONAL CLINICAL INFORMATION: Ordering Provider Reason For Exam: ??any concern for pneumonia COMPARISON: Chest radiograph dated 10/25/2022. FINDINGS/IMPRESSION: Enteric tube courses below the diaphragm and out of the vfokb-oj-lhcj. RUQ surgical clips are present. No focal consolidation. No pleural effusion or pneumothorax. The cardiomediastinal silhouette is normal. Report dictated by Agnes Olmos DO (residential program director). Pepe Ornelas MD have personally reviewed and interpreted this examination/study. > Interpreting Provider: Pepe Gonzalez MD on 10/27/2022 2:58 PM Procedure Note Pepe Gonzalez MD - 10/27/2022 PROCEDURE: XR CHEST 1VW PORTABLE, DATE/TIME OF EXAM: 10/27/2022 10:19AM, LOCATION [facility] INDICATION: D72.829: Leukocytosis, unspecified type ADDITIONAL CLINICAL INFORMATION: Ordering Provider Reason For Exam: any concern for pneumonia COMPARISON: Chest radiograph dated 10/25/2022. FINDINGS/IMPRESSION: Enteric tube courses below the diaphragm and out of the slikg-[id number]-[id number].RUQ surgical clips are present. No focal consolidation. No pleural effusion or pneumothorax. The cardiomediastinal silhouette is normal. Report dictated by Agnes Olmos DO (residential program director). Pepe Ornelas MD have personally reviewed and interpreted this examination/study. > Interpreting Provider: Pepe Gonzalez MD on 10/27/2022 2:58 PM Emir Vail MD DIAGNOSTIC IMAGING O RDERAJESSE * (ABNORMAL) GLUCOSE - POINT OF CARE (10/27/2022 6:33 AM CDT) Glucose WB/POC 128(H) 70 - 115 mg/dL 10/27/2022 6:39 AM CDT [facility] Specimen Type Cap Fingerstick 2022 6:39 AM CDT [facility] Blood BLOOD SPECIMEN / Unknown 10/27/2022 6:33 AM CDT 10/27/2022 6:39 AM CDT Emir Vail MD LAB - POINT OF CARE ORDERABLES Performing Organization Address [facility] Co de Phone Number [address] [address], [facility] [phone] * (ABNORMAL) PTT [facility] (10/27/2022 6:08 AM CDT) APTT 58.6(H) 23.0 - 38.4 Seconds 10/27/2022 6:37 AM CDT [facility] Comment:Suggested therapeuti c range for full dose I.V. unfractionated heparin therapy for venous thromboembolism is 71 to 109 seconds. Blood BLOOD SPECIMEN / Unknown Venipuncture / Unknown 10/27/2022 6:08 AM CDT 10/27/2022 6:14 AM CDT Emir Vail MD LAB - COAGULATION OR DERABLES Performing Organization Address [facility] Co de Phone Number [address] [address], [facility] [phone] * PT-INR [facility] (10/27/2022 6:08 AM CDT) PT 13.7 12.1 - 14.8 Seconds 10/27/2022 6:36 AM CDT [facility] INR 1.1 See Comment 10/27/2022 6:36 AM CDT [facility] Comment:The suggested therap eutic range for standard coumadin (warfarin) therapy is an INR of 2.0-3.0. For high-risk patients (Mechanical Mitral Valve Prosthesis, etc.), the suggested prophylactic therapeutic range is an INR of 2.5-3.5. Blood BLOOD SPECIMEN / Unknown Venipuncture / Unknown 10/27/2022 6:08 AM CDT 10/27/2022 6:14 AM CDT Emir Vail MD LAB - COAGULATION OR DERABLES Performing Organization Address [facility] Co de Phone Number [facility] [address] [place] [address], [facility] [phone] * CT HEAD WO CONTRAST (10/27/2022 5:54 [...] DATE/TIME OF EXAM: ??10/27/2022 5:54 AM, LOCATION ??[facility] INDICATION: I63.511: Right middle cerebral artery [...] DATE/TIME OF EXAM: 10/27/2022 5:54 AM, LOCATION [facility] INDICATION: I63.511: Right middle cerebral artery [...] 19.5 10? 3 /uL 10/27/2022 4:31 AM [facility] Total Cell Count 100 10/28/19 4:31 AM [facility] Neutrophils Absolute Manual 12.09(H) 1.60 - 7.00 10? 3 /uL 10/27/2022 4:31 AM [facility] Comment:(BANDS+SEGS) x WBC = NEUT # (ANC) Lymphocyte Absolute Manual 5.07(H) 1.10 - 3.90 10? 3 /uL 10/27/2022 4:31 AM [facility] Monocytes Absolute Manual 0.78 0.26 - 1.07 10? 3 /uL 10/27/2022 4:31 AM [facility] Eosinophils Absolute Manual 1.17(H) 0.00 - 0.47 10? 3 /uL 10/27/2022 4:31 AM [facility] Neutrophil % Manual 62 35 - 70 % 10/27/2022 4:31 AM [facility] Lymphocyte % Manual 26 20 - 43 % 10/27/2022 4:31 AM [facility] Monocytes % Manual 4(L) 5 - 13 % 10/27/2022 4:31 AM [facility] Eosinophils % Manual 6 0 - 6 % 10/27/2022 4:31 AM [facility] Metamyelocyte % Manual 1(H) 0 % 10/27/2022 4:31 AM [facility] Myelocytes % Manual 1(H) 0 % 10/27/2022 4:31 AM [facility] Platelet Estimate Increased (A) Adequate 10/27/2022 4:31 AM [facility] Polychromasia Occasiona l(A) None 10/27/2022 4:31 AM [facility] Ovalocytes Occasiona l(A) None 10/27/2022 4:31 AM [facility] [place] Cells Occasiona l(A) None 10/27/2022 4:31 AM [facility] Tear Drop Cells Occasiona l(A) None 10/27/2022 4:31 AM [facility] Smudge Cells Rare(A) None 10/27/2022 4:31 AM [facility] Large Platelet Count Occasiona l(A) None 10/27/2022 4:31 AM [facility] Blood BLOOD SPECIMEN / Unknown Venipuncture / Unknown 10/27/2022 12:54 AM CDT 10/27/2022 1:02 AM CDT Emir Vail MD LAB - HEMATOLOGY ORD ERABLES Performing Organization Address City/[facility]/ZIP Co de Phone Number [address] [address], [facility] [phone] * (ABNORMAL) PTT [facility] (10/27/2022 12:54 AM CDT) APTT 59.5(H) 23.0 - 38.4 Seconds 10/27/2022 1:25 AM [facility] Comment:Suggested therapeuti c range for full dose I.V. unfractionated heparin therapy for venous thromboembolism is 71 to 109 seconds. Blood BLOOD SPECIMEN / Unknown Venipuncture / Unknown 10/27/2022 12:54 AM CDT 10/27/2022 1:02 AM CDT Emir Vail MD LAB - COAGULATION OR DERABLES Performing Organization Address [facility]/ZIP Co de Phone Number [address] [address], [facility] [phone] * (ABNORMAL) BASIC METABOLIC PANEL (CALCIUM TOTAL) (10/27/2022 12:54 AM CDT) BUN 11 7 - 26 mg/dL 10/27/2022 1:28 AM [facility] Creatinine 0.53(L) 0.56 - 0.96 mg/dL 10/27/2022 1:28 AM [facility] Sodium 138 136 - 145 mmol/L 10/27/2022 1:28 AM [facility] Potassium 3.5 3.5 - 4.5 mmol/L 10/27/2022 1:28 AM [facility] Chloride 107 98 - 107 mmol/L 10/27/2022 1:28 AM [facility] CO2 24 22 - 29 mmol/L 10/27/2022 1:28 AM [facility] Glucose 137(H) 70 - 115 mg/dL 10/27/2022 1:28 AM [facility] Calcium 8.4 8.4 - 10.2 mg/dL 10/27/2022 1:28 AM [facility] Anion Gap 11 8 - 18 10/27/2022 1:28 AM [facility] BUN/Creatinine Ratio 21 7 - 23 10/27/2022 1:28 AM [facility] Osmolality Calculated 288 270 - 300 mOsm/kg 10/27/2022 1:28 AM [facility] eGFR by CKD-EPI >90 >=90 mL/min/1.7 3 m2 10/27/2022 1:28 AM [facility] Blood BLOOD SPECIMEN / Unknown Venipuncture / Unknown 10/27/2022 12:54 AM CDT 10/27/2022 1:02 AM T Emir Vail MD LAB [facility] Organization Address City/State/ZIP Co de Phone Number [facility] [address] [place] [address], [facility] [phone] * (ABNORMAL) CBC W AUTO DIFFERENTIAL (10/27/2022 12:54 AM CDT) WBC 19.5(H) 3.5 - 10.5 10? 3 /uL 10/27/2022 1:23 AM [facility] RBC 2.60(L) 3.80 - 5.20 10? 6 /uL 10/27/2022 1:23 AM [facility] Hemoglobin 8.0(L) 12.0 - 15.6 g/dL 10/27/2022 1:23 AM [facility] Hematocrit 24.6(L) 35.0 - 45.0 % 10/27/2022 1:23 AM [facility] MCV 94.6 80.7 - 98.3 fL 10/27/2022 1:23 AM [facility] MCH 30.8 26.7 - 34.0 pg 10/27/2022 1:23 AM CDT [facility] MCHC 32.5 30.8 - 35.9 g/dL 10/27/2022 1:23 AM T [facility] RDW-SD 45.8 36.0 - 50.0 fL 10/27/2022 1:23 AM [facility] RDW-CV 13.5 11.2 - 14.8 % 10/27/2022 1:23 AM T [facility] Platelet Count 519(H) 150 - 400 10? 3 /uL 10/27/2022 1:23 AM T [facility] MPV 10.1 9.4 - 12.9 fL 10/27/2022 1:23 AM [facility] nRBC Absolute 0.08(H) 0 10? 3 /uL 10/27/2022 1:23 AM T [facility] nRBC Auto 0.4(H) 0 /100 WBC 10/27/2022 1:23 AM T [facility] Blood BLOOD SPECIMEN / Unknown Venipuncture / Unknown 10/27/2022 12:54 AM CDT 10/27/2022 1:02 AM CDT Emir Vail MD LAB - HEMATOLOGY ORD ERABLES [address] [address], [facility] [phone] * PHOSPHORUS BLOOD (10/27/2022 12:54 AM CDT) Phosphorus 3.5 2.9 - 5.1 mg/dL 10/27/2022 1:28 AM CDT [facility] Blood BLOOD SPECIMEN / Unknown Venipuncture / Unknown 10/27/2022 12:54 AM CDT 10/27/2022 1:02 AM CDT Emir Vail MD LAB - CHEMISTRY ORDE HIRAL [address] [address], [place] [phone] * MAGNESIUM BLOOD (10/27/2022 12:54 AM CDT) Magnesium 2.0 1.6 - 2.6 mg/dL 10/27/2022 1:28 AM CDT [facility] Blood BLOOD SPECIMEN / Unknown Venipuncture / Unknown 10/27/2022 12:54 AM CDT 10/27/2022 1:02 AM CDT Emir Vail MD LAB - CHEMISTRY BIBIANA BLACKMAN Performing Organization Address City/[facility]/ZIP Co de Phone Number [address] [address], [place] [phone] * (ABNORMAL) PTT [facility] (10/26/2022 9:12 PM CDT) APTT 65.0(H) 23.0 - 38.4 Seconds 10/26/2022 9:46 PM CDT [facility] Comment:Suggested therapeuti c range for full dose I.V. unfractionated heparin therapy for venous thromboembolism is 71 to 109 seconds. Blood BLOOD SPECIMEN / Unknown Venipuncture / Unknown 10/26/2022 9:12 PM CDT 10/26/2022 9:18 PM CDT Emir Vail MD LAB - COAGULATION OR DERABLES Performing Organization Address [facility]/ZIP Co de Phone Number [address] [address], [place] [phone] * (ABNORMAL) GLUCOSE - POINT OF CARE (10/26/2022 6:33 PM CDT) Glucose WB/POC 122(H) 70 - 115 mg/dL 10/26/2022 6:34 PM CDT [facility] Specimen Type Cap Fingerstick 2022 6:34 PM CDT [facility] Blood BLOOD SPECIMEN / Unknown 10/26/2022 6:33 PM CDT 10/26/2022 6:34 PM CDT Emir Vail MD LAB - POINT OF CARE ORDERABLES Performing Organization Address City/[facility] Co de Phone Number [facility] [address] [place] [address], [facility] [phone] * (ABNORMAL) PTT [facility] (10/26/2022 3:59 PM CDT) APTT 52.9(H) 23.0 - 38.4 Seconds 10/26/2022 4:35 PM CDT [facility] Comment:Suggested therapeuti c range for full dose I.V. unfractionated heparin therapy for venous thromboembolism is 71 to 109 seconds. Blood BLOOD SPECIMEN / Unknown Venipuncture / Unknown 10/26/2022 3:59 PM CDT 10/26/2022 4:12 PM CDT Emir Vail MD LAB - COAGULATION OR DERABLES Performing Organization Address [facility] de Phone Number [facility] [address] [place] [phone], [facility] [phone] * VAS ARTERIAL MULTILEVEL LE (10/26/2022 2:59 PM CDT) Anatomical Region Laterality Modality Intravascular Ul trasound 10/26/2022 1:32 AM CDT Narrative Procedure Note Daniella Jose MD - 10/27/2022 Emir Vail MD VASCULAR LAB ORDERAB LES * (ABNORMAL) GLUCOSE - POINT OF CARE (10/26/2022 12:15 PM CDT) Glucose WB/POC 122(H) 70 - 115 mg/dL 10/26/2022 12:16 PM CDT [facility] Specimen Type Cap Fingerstick 2022 12:16 PM CDT [facility] Blood BLOOD SPECIMEN / Unknown 10/26/2022 12:15 PM CDT 10/26/2022 12:16 PM CDT Emir Vail MD LAB - POINT OF CARE ORDERABLES Performing Organization Address [facility]/State/ZIP Co de Phone Number [facility] [address] [place] [phone], [facility] [phone] * (ABNORMAL) PTT [facility] (10/26/2022 11:24 AM CDT) Pathologist [facility] APTT 51.1(H) 23.0 - 38.4 Seconds 10/26/2022 11:55 AM CDT [facility] Comment:Suggested therapeuti c range for full dose I.V. unfractionated heparin therapy for venous thromboembolism is 71 to 109 seconds. Blood BLOOD SPECIMEN / Unknown Venipuncture / Unknown 10/26/2022 11:24 AM CDT 10/26/2022 11:31 AM CDT Emir Vail MD LAB - COAGULATION OR DERABLES Performing Organization Address City/[facility]/ZIP Co de Phone Number [address] [address], [facility] [phone] * VANCOMYCIN LEVEL TROUGH (10/26/2022 8:38 AM CDT) [facility] Vancomycin Trough 14.0 10.0 - 20.0 ug/mL 10/26/2022 9:59 AM CDT [facility] Blood BLOOD SPECIMEN / Unknown Venipuncture / Unknown 10/26/2022 8:38 AM CDT 10/26/2022 8:45 AM CDT Narrative [facility] - 10/26/2022 9:59 AM CDT See institution protocol. Emir Vail MD LAB - CHEMISTRY ORDE RABLES [address] [address], [facility] [phone] * LAB MISC TEST (10/26/2022 7:37 AM CDT) Pathologist [facility] Test Name mycoplasma PCR , blood 12/09/2022 1:25 PM CDT [facility] Test Result See Scanned Report 12/09/2022 1:25 PM CDT [facility] Comment Ref Lab [facility] 12/09/2022 1:25 PM CDT [facility] Blood BLOOD SPECIMEN / Unknown Venipuncture / Unknown 10/26/2022 7:37 AM CDT 10/26/2022 7:39 AM CDT Emir Vail MD LAB SEND OUT Performing Organization Address City/[facility]/ZIP Co de Phone Number [employer] [address] [place] [address] * (ABNORMAL) GLUCOSE - POINT OF CARE (10/26/2022 7:12 AM CDT) Glucose WB/POC 144(H) 70 - 115 mg/dL 10/26/2022 7:13 AM CDT [facility] Specimen Type Cap Fingerstick 2022 7:13 AM CDT [facility] Blood BLOOD SPECIMEN / Unknown 10/26/2022 7:12 AM CDT 10/26/2022 7:13 AM CDT Emir Vail MD LAB - POINT OF CARE ORDERABLES Performing Organization Address [facility]/ZIP Co de Phone Number [address] [address], [place] [phone] * (ABNORMAL) PTT [facility] (10/26/2022 6:47 AM CDT) APTT 44.3(H) 23.0 - 38.4 Seconds 10/26/2022 7:17 AM CDT [facility] Comment:Suggested therapeuti c range for full dose I.V. unfractionated heparin therapy for venous thromboembolism is 71 to 109 seconds. Blood BLOOD SPECIMEN / Unknown Venipuncture / Unknown 10/26/2022 6:47 AM CDT 10/26/2022 6:52 AM CDT Emir Vail MD LAB - COAGULATION OR DERABLES Performing Organization Address City/[facility]/ZIP Co de Phone Number [address] [address], [place] [phone] * CT HEAD WO CONTRAST (10/26/2022 4:55 [...] is dictated by Miranda Bowen MD (residential program director) I, Oriana Suarez MD have personally reviewed and interpreted this examination/study. 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 > Interpreting Provider: Oriana Suarez MD on 10/26/2022 8:19 AM Emir Vail MD CT ORDERABLES * PT-INR [facility] (10/26/2022 4:26 AM CDT) PT 13.6 12.1 - 14.8 Seconds 10/26/2022 4:59 AM CDT [facility] INR 1.0 See Comment 10/26/2022 4:59 AM CDT [facility] Comment:The suggested therap eutic range for standard coumadin (warfarin) therapy is an INR of 2.0-3.0. For high-risk patients (Mechanical Mitral Valve Prosthesis, etc.), the suggested prophylactic therapeutic range is an INR of 2.5-3.5. Blood BLOOD SPECIMEN / Unknown Venipuncture / Unknown 10/26/2022 4:26 AM CDT 10/26/2022 4:32 AM CDT Emir Vail MD LAB - COAGULATION OR DERABLES Performing Organization Address City/[facility]/ZIP Co de Phone Number [address] [address], [facility] [phone] * (ABNORMAL) PTT [facility] (10/26/2022 1:55 AM CDT) APTT 20.5(L) 23.0 - 38.4 Seconds 10/26/2022 2:26 AM CDT [facility] Comment:Suggested therapeuti c range for full dose I.V. unfractionated heparin therapy for venous thromboembolism is 71 to 109 seconds. Blood BLOOD SPECIMEN / Unknown Venipuncture / Unknown 10/26/2022 1:55 AM CDT 10/26/2022 2:00 AM CDT Emir Vail MD LAB - COAGULATION OR DERABLES [address] [address], [facility] [phone] * (ABNORMAL) BASIC METABOLIC PANEL (CALCIUM TOTAL) (10/26/2022 12:02 AM CDT) BUN 13 7 - 26 mg/dL 10/26/2022 12:30 AM CDT [facility] Creatinine 0.54(L) 0.56 - 0.96 mg/dL 10/26/2022 12:30 AM CDT [facility] Sodium 139 136 - 145 mmol/L 10/26/2022 12:30 AM [facility] Potassium 3.3(L) 3.5 - 4.5 mmol/L 10/26/2022 12:30 AM [facility] Chloride 105 98 - 107 mmol/L 10/26/2022 12:30 AM [facility] CO2 24 22 - 29 mmol/L 10/26/2022 12:30 AM [facility] Glucose 113 70 - 115 mg/dL 10/26/2022 12:30 AM [facility] Calcium 8.4 8.4 - 10.2 mg/dL 10/26/2022 12:30 AM [facility] Anion Gap 13 8 - 18 10/26/2022 12:30 AM [facility] BUN/Creatinine Ratio 24(H) 7 - 23 10/26/2022 12:30 AM [facility] Osmolality Calculated 289 270 - 300 mOsm/kg 10/26/2022 12:30 AM [facility] eGFR by CKD-EPI >90 >=90 mL/min/1.7 3 m2 10/26/2022 12:30 AM [facility] Blood BLOOD SPECIMEN / Unknown Venipuncture / Unknown 10/26/2022 12:02 AM CDT 10/26/2022 12:06 AM [facility] Emir Vail MD LAB - CHEMISTRY [facility]NA BLACKMAN [facility] Organization Address City/State/[facility] Co de Phone Number [facility] [address] [place] [address], [facility] [phone] * (ABNORMAL) CBC W AUTO DIFFERENTIAL (10/26/2022 12:02 AM CDT) WBC 16.1(H) 3.5 - 10.5 10? 3 /uL 10/26/2022 12:12 AM [facility] RBC 2.64(L) 3.80 - 5.20 10? 6 /uL 10/26/2022 12:12 AM [facility] Hemoglobin 8.1(L) 12.0 - 15.6 g/dL 10/26/2022 12:12 AM [facility] Hematocrit 25.1(L) 35.0 - 45.0 % 10/26/2022 12:12 AM [facility] MCV 95.1 80.7 - 98.3 fL 10/26/2022 12:12 AM [facility] MCH 30.7 26.7 - 34.0 pg 10/26/2022 12:12 AM [facility] MCHC 32.3 30.8 - 35.9 g/dL 10/26/2022 12:12 AM [facility] RDW-SD 46.2 36.0 - 50.0 fL 10/26/2022 12:12 AM [facility] RDW-CV 13.5 11.2 - 14.8 % 10/26/2022 12:12 AM [facility] Platelet Count 446(H) 150 - 400 10? 3 /uL 10/26/2022 12:12 AM [facility] MPV 10.0 9.4 - 12.9 fL 10/26/2022 12:12 AM [facility] nRBC Absolute 0.04(H) 0 10? 3 /uL 10/26/2022 12:12 AM [facility] nRBC Auto 0.2(H) 0 /100 WBC 10/26/2022 12:12 AM [facility] Neutrophils % 63.5 35.0 - 70.0 % 10/26/2022 12:12 AM [facility] Lymphocytes % 22.7 20.0 - 43.0 % 10/26/2022 12:12 AM [facility] Monocytes % 8.3 5.0 - 13.0 % 10/26/2022 12:12 AM [facility] Eosinophils % 3.2 0.0 - 6.0 % 10/26/2022 12:12 AM [facility] Basophil % 0.4 0.0 - 2.0 % 10/26/2022 12:12 AM [facility] Neutrophils Absolute 10.24(H) 1.60 - 7.00 10? 3 /uL 10/26/2022 12:12 AM [facility] Lymphocyte Absolute 3.65 1.10 - 3.90 10? 3 /uL 10/26/2022 12:12 AM CDT [facility] Monocytes Absolute 1.34(H) 0.26 - 1.07 10? 3 /uL 10/26/2022 12:12 AM CDT [facility] Eosinophils Absolute 0.51(H) 0.00 - 0.47 10? 3 /uL 10/26/2022 12:12 AM CDT [facility] Basophils Absolute 0.06 0.00 - 0.08 10? 3 /uL 10/26/2022 12:12 AM CDT [facility] Immature Granulocytes % 1.9(H) 0.0 - 1.0 % 10/26/2022 12:12 AM CDT [facility] Immature Granulocytes Absolute 0.30 10/26/2022 12:12 AM CDT [facility] Blood BLOOD SPECIMEN / Unknown Venipuncture / Unknown 10/26/2022 12:02 AM CDT 10/26/2022 12:06 AM CDT Emir Vail MD LAB - HEMATOLOGY ORD ERABLES [address] [address], [facility] [phone] * PHOSPHORUS BLOOD (10/26/2022 12:02 AM CDT) Phosphorus 3.5 2.9 - 5.1 mg/dL 10/26/2022 12:30 AM T [facility] Blood BLOOD SPECIMEN / Unknown Venipuncture / Unknown 10/26/2022 12:02 AM CDT 10/26/2022 12:06 AM CDT Emir Vail MD LAB - CHEMISTRY ORDDanyelle BLACKMAN [address] [address], [facility] [phone] * MAGNESIUM BLOOD (10/26/2022 12:02 AM CDT) Magnesium 1.9 1.6 - 2.6 mg/dL 10/26/2022 12:30 AM CDT [facility] Blood BLOOD SPECIMEN / Unknown Venipuncture / Unknown 10/26/2022 12:02 AM CDT 10/26/2022 12:06 AM CDT Emir Vail MD LAB - CHEMISTRY ORDE HIRAL Performing Organization Address City/[facility]/ZIP Co de Phone Number [facility] [address] [place] [phone], [place] [phone] * GLUCOSE - POINT OF CARE (10/25/2022 11:14 PM CDT) Glucose WB/POC 114 70 - 115 mg/dL 10/25/2022 11:15 PM CDT [facility] Specimen Type Cap Fingerstick 2022 11:15 PM CDT [facility] Blood BLOOD SPECIMEN / Unknown 10/25/2022 11:14 PM CDT 10/25/2022 11:15 PM CDT Emir Vail MD LAB - POINT OF CARE ORDERABLES Performing Organization Address [facility]/ZIP Co de Phone Number [address] [address], [place] [phone] * PTT [facility] (10/25/2022 9:02 PM CDT) APTT 33.3 23.0 - 38.4 Seconds 10/25/2022 9:32 PM CDT [facility] Comment:Suggested therapeuti c range for full dose I.V. unfractionated heparin therapy for venous thromboembolism is 71 to 109 seconds. Blood BLOOD SPECIMEN / Unknown Venipuncture / Unknown 10/25/2022 9:02 PM CDT 10/25/2022 9:10 PM CDT Emir Vail MD LAB - COAGULATION OR DERABLES Performing Organization Address City/[facility]/ZIP Co de Phone Number [facility] [address] [place] [phone], [place] [phone] * (ABNORMAL) GLUCOSE - POINT OF CARE (10/25/2022 6:54 PM CDT) Glucose WB/POC 122(H) 70 - 115 mg/dL 10/25/2022 6:56 PM CDT [facility] Specimen Type Cap Fingerstick 2022 6:56 PM CDT [facility] Blood BLOOD SPECIMEN / Unknown 10/25/2022 6:54 PM CDT 10/25/2022 6:55 PM CDT Emir Vail MD LAB - POINT OF CARE ORDERABLES Performing Organization Address [facility]/ZIP Co de Phone Number [address] [address], [place] [phone] * PTT [facility] (10/25/2022 4:41 PM CDT) APTT 24.8 23.0 - 38.4 Seconds 10/25/2022 5:19 PM CDT [facility] Comment:Suggested therapeuti c range for full dose I.V. unfractionated heparin therapy for venous thromboembolism is 71 to 109 seconds. Blood BLOOD SPECIMEN / Unknown Venipuncture / Unknown 10/25/2022 4:41 PM CDT 10/25/2022 4:55 PM CDT Emir Vail MD LAB - COAGULATION OR DERABLES Performing Organization Address [facility]/ZIP Co de Phone Number [address] [address], [place] [phone] * PT-INR [facility] (10/25/2022 4:41 PM CDT) PT 13.4 12.1 - 14.8 Seconds 10/25/2022 5:19 PM CDT [facility] INR 1.0 See Comment 10/25/2022 5:19 PM CDT [facility] Comment:The suggested therap eutic range for standard coumadin (warfarin) therapy is an INR of 2.0-3.0. For high-risk patients (Mechanical Mitral Valve Prosthesis, etc.), the suggested prophylactic therapeutic range is an INR of 2.5-3.5. Blood BLOOD SPECIMEN / Unknown Venipuncture / Unknown 10/25/2022 4:41 PM CDT 10/25/2022 4:55 PM CDT Emir Vail MD LAB - COAGULATION OR DERABLES [id number] [place] [address], [facility] [phone] * CT CHEST ABDOMEN PELVIS W CONT [...] > Dictated by Clarisa Cantrell MD (residential program director). I, Alexx Lopez have personally reviewed and interpreted this examination/study. > Interpreting Provider: Alexx Lopez on 10/25/2022 4:16 PM Narrative 10/25/2022 4:16 PM CDT PROCEDURE: ??CT CHEST ABDOMEN PELVIS W CONT, DATE/TIME OF EXAM: ??10/25/2022 12:56 PM, LOCATION ??[facility] INDICATION: I63.511: Right middle cerebral artery [...] CONT, DATE/TIME OF EXAM:10/25/2022 12:56 PM, LOCATION [facility] INDICATION: I63.511: Right middle cerebral artery [...] > Dictated by Clarisa Cantrell MD (residential program director). I, Alexx Lopez have personally reviewed and [...] is dictated by Miranda Bowen MD (residential program director) I, Joni Fabian MD have personally reviewed and interpreted this examination/study. 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 ([facility]) I33.0: Aortic valve vegetation ADDITIONAL CLINICAL INFORMATION: [...] DATE/TIME OF EXAM: 10/25/2022 12:56 PM, LOCATION [facility] INDICATION: I63.511: Right middle cerebral artery [...] is dictated by Miranda Bowen MD (residential program director) I, Joni Fabian MD have personally reviewed [...] DATE/TIME OF EXAM: ??10/25/2022 9:41 AM, LOCATION ??[facility] 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 Enteric tube courses below the diaphragm and out of the [id number]. There is severe left rotation of the patient in this study. There is no focal consolidation, pleural effusion, or pneumothorax. The left upper lobe pulmonary nodule noted on chest CT from same day is not visualized on this plain film. The cardiomediastinal silhouette is normal. The visible bony thorax is intact. Report dictated by Royer Stovall MD (residential program director). Alexx Ornelas have personally reviewed and interpreted this examination/study. 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 Enteric tube courses below the diaphragm and out of the [id number]. There is severe left rotation of the patient in this study. There is no focal consolidation, pleural effusion, or pneumothorax. The left upper lobe pulmonary nodule noted on chest CT from same day is not visualized on this plain film. The cardiomediastinal silhouette isnormal. The visible bony thorax is intact. Report dictated by Royer Stovall MD (residential program director). Alexx Ornelas have personally reviewed and interpreted this examination/study. > Interpreting Provider: Alexx Lopez on 10/26/2022 2:01 PM Shahbaz Bowen MD DIAGNOSTIC IMAGING O RDERABLES * CULTURE BLOOD (10/25/2022 9:00 AM CDT) Culture No growth day 5 ROSELIA 10/30/2022 1:30 PM CDT [facility] Blood PERIPHERAL BLOOD / Unknown Venipuncture / Unknown 10/25/2022 9:00 AM CDT 10/25/2022 9:21 AM CDT Emir Vail MD LAB - MICROBIOLOGY O RDERABLES [facility] [address] [place] [address], [facility] [phone] * (ABNORMAL) GLUCOSE - POINT OF CARE (10/25/2022 7:46 AM CDT) Glucose WB/POC 123(H) 70 - 115 mg/dL 10/25/2022 7:47 AM CDT [facility] Specimen Type Cap Fingerstick 2022 7:47 AM CDT [facility] Blood BLOOD SPECIMEN / Unknown 10/25/2022 7:46 AM CDT 10/25/2022 7:47 AM CDT Emir Vail MD LAB - POINT OF CARE ORDERABLES Performing Organization Address City/[facility]/ZIP Co de Phone Number [address] [address], [place] [phone] * HEPATITIS C AB SCREEN RFLX NAAT QUANT (10/25/2022 1:39 AM CDT) [facility] Hepatitis C Antibody Non-react tiffany Non-reac tive 10/25/2022 2:56 AM CDT [facility] Comment:Hepatitis C Antibody screen indicates no [...] Vail MD LAB - CHEMISTRY BIBIANA BLACKMAN [address] [address], [place] [phone] * HIV-1 HIV-2 ANTIBODY + HIV P24 AG PANEL (10/25/2022 1:39 AM CDT) [facility] HIV Antigen/Antibod y 1 & 2 Non-reacti ve Non-react tiffany 10/25/2022 2:56 AM [facility] Comment:No Laboratory eviden ce of HIV infection. Blood BLOOD SPECIMEN / Unknown Venipuncture / Unknown 10/25/2022 1:39 AM CDT 10/25/2022 1:56 AM CDT Emir Vail MD LAB - CHEMISTRY BIBIANA BLACKMAN [facility] [address] [place] [address], [facility] [phone] * (ABNORMAL) BASIC METABOLIC PANEL (CALCIUM TOTAL) (10/25/2022 12:07 AM CDT) [facility] BUN 16 7 - 26 mg/dL 10/25/2022 12:48 AM [facility] Creatinine 0.48(L) 0.56 - 0.96 mg/dL 10/25/2022 12:48 AM [facility] Sodium 140 136 - 145 mmol/L 10/25/2022 12:48 AM [facility] Potassium 4.0 3.5 - 4.5 mmol/L 10/25/2022 12:48 AM [facility] Chloride 106 98 - 107 mmol/L 10/25/2022 12:48 AM [facility] CO2 25 22 - 29 mmol/L 10/25/2022 12:48 AM [facility] Glucose 116(H) 70 - 115 mg/dL 10/25/2022 12:48 AM [facility] Calcium 9.0 8.4 - 10.2 mg/dL 10/25/2022 12:48 AM [facility] Anion Gap 13 8 - 18 10/25/2022 12:48 AM [facility] BUN/Creatinine Ratio 33(H) 7 - 23 10/25/2022 12:48 AM [facility] Osmolality Calculated 292 270 - 300 mOsm/kg 10/25/2022 12:48 AM [facility] eGFR by CKD-EPI >90 >=90 mL/min/1.7 3 m2 10/25/2022 12:48 AM [facility] Blood BLOOD SPECIMEN / Unknown Venipuncture / Unknown 10/25/2022 12:07 AM CDT 10/25/2022 12:12 AM CDT Emir Vail MD LAB - CHEMISTRY BIB[facility]NA BLACKMAN [facility] Organization Address City/State/ZIP Co de Phone Number [facility] [address] [place] [address], [facility] [phone] * (ABNORMAL) CBC W AUTO DIFFERENTIAL (10/25/2022 12:07 AM T) WBC 16.6(H) 3.5 - 10.5 10? 3 /uL 10/25/2022 12:27 AM [facility] RBC 2.65(L) 3.80 - 5.20 10? 6 /uL 10/25/2022 12:27 AM [facility] Hemoglobin 8.2(L) 12.0 - 15.6 g/dL 10/25/2022 12:27 AM [facility] Hematocrit 25.1(L) 35.0 - 45.0 % 10/25/2022 12:27 AM [facility] MCV 94.7 80.7 - 98.3 fL 10/25/2022 12:27 AM [facility] MCH 30.9 26.7 - 34.0 pg 10/25/2022 12:27 AM [facility] MCHC 32.7 30.8 - 35.9 g/dL 10/25/2022 12:27 AM [facility] RDW-SD 45.8 36.0 - 50.0 fL 10/25/2022 12:27 AM [facility] RDW-CV 13.4 11.2 - 14.8 % 10/25/2022 12:27 AM [facility] Platelet Count 402(H) 150 - 400 10? 3 /uL 10/25/2022 12:27 AM [facility] MPV 10.2 9.4 - 12.9 fL 10/25/2022 12:27 AM [facility] nRBC Absolute 0.03(H) 0 10? 3 /uL 10/25/2022 12:27 AM [facility] nRBC Auto 0.2(H) 0 /100 WBC 10/25/2022 12:27 AM [facility] Neutrophils % 72.0(H) 35.0 - 70.0 % 10/25/2022 12:27 AM [facility] Lymphocytes % 15.7(L) 20.0 - 43.0 % 10/25/2022 12:27 AM [facility] Monocytes % 8.7 5.0 - 13.0 % 10/25/2022 12:27 AM [facility] Eosinophils % 2.1 0.0 - 6.0 % 10/25/2022 12:27 AM [facility] Basophil % 0.4 0.0 - 2.0 % 10/25/2022 12:27 AM [facility] Neutrophils Absolute 11.95(H) 1.60 - 7.00 10? 3 /uL 10/25/2022 12:27 AM [facility] Lymphocyte Absolute 2.60 1.10 - 3.90 10? 3 /uL 10/25/2022 12:27 AM [facility] Monocytes Absolute 1.45(H) 0.26 - 1.07 10? 3 /uL 10/25/2022 12:27 AM [facility] Eosinophils Absolute 0.34 0.00 - 0.47 10? 3 /uL 10/25/2022 12:27 AM [facility] Basophils Absolute 0.06 0.00 - 0.08 10? 3 /uL 10/25/2022 12:27 AM [facility] Immature Granulocytes % 1.1(H) 0.0 - 1.0 % 10/25/2022 12:27 AM [facility] Immature Granulocytes Absolute 0.18 10/25/2022 12:27 AM [facility] Blood BLOOD SPECIMEN / Unknown Venipuncture / Unknown 10/25/2022 12:07 AM CDT 10/25/2022 12:12 AM T Emir Vail MD LAB - HEMATOLOGY ORD ERABLES [address] [address], [place] [phone] * PHOSPHORUS BLOOD (10/25/2022 12:07 AM CDT) Phosphorus 3.7 2.9 - 5.1 mg/dL 10/25/2022 12:48 AM CDT [facility] Blood BLOOD SPECIMEN / Unknown Venipuncture / Unknown 10/25/2022 12:07 AM CDT 10/25/2022 12:12 AM CDT Emir Vail MD LAB - CHEMISTRY [facility] [address] [address], [place] [phone] * MAGNESIUM BLOOD (10/25/2022 12:07 AM CDT) Magnesium 2.1 1.6 - 2.6 mg/dL 10/25/2022 12:48 AM CDT [facility] Blood BLOOD SPECIMEN / Unknown Venipuncture / Unknown 10/25/2022 12:07 AM CDT 10/25/2022 12:12 AM CDT Emir Vail MD LAB - CHEMISTRY [place] [facility] [address] [address], [place] [phone] * GLUCOSE - POINT OF CARE (10/24/2022 8:16 PM CDT) Glucose WB/POC 111 70 - 115 mg/dL 10/24/2022 8:25 PM CDT [facility] Specimen Type Cap Fingerstick 2022 8:25 PM CDT [facility] Blood BLOOD SPECIMEN / Unknown 10/24/2022 8:16 PM CDT 10/24/2022 8:25 PM CDT Emir Vail MD LAB - POINT OF CARE ORDERABLES Performing Organization Address City/[facility]/ZIP Co de Phone Number [facility] [address] [place] [id number], [place] [phone] * GLUCOSE - POINT OF CARE (10/24/2022 5:10 PM CDT) Glucose WB/POC 112 70 - 115 mg/dL 10/24/2022 5:11 PM CDT [facility] Specimen Type Cap Fingerstick 2022 5:11 PM CDT [facility] Blood BLOOD SPECIMEN / Unknown 10/24/2022 5:10 PM CDT 10/24/2022 5:11 PM CDT Emir Vail MD LAB - POINT OF CARE ORDERABLES Performing Organization Address City/[facility]/ZIP Co de Phone Number [address] [address], [place] [phone] * XR ABDOMEN KUB PORTABLE (10/24/2022 2:04 PM CDT) Anatomical Region Laterality Modality Abdomen Radiographic Irene ging 10/24/2022 2:13 PM CDT Narrative 10/24/2022 2:17 PM CDT PROCEDURE: ??XR ABDOMEN KUB PORTABLE, DATE/TIME OF EXAM: ??10/24/2022 2:04 PM, LOCATION ??[facility] INDICATION: R47.1: Dysarthria ADDITIONAL CLINICAL INFORMATION: Ordering Provider Reason For Exam: ??ngt placement COMPARISON: Portable KUB dated 10/23/2022 FINDINGS/IMPRESSION: The enteric tube courses below the diaphragm with tip superimposing the gastric pyloric region. Drafted by Agnes Olmos DO (residential program director). I, Vanessa Kumar MD have personally reviewed and interpreted this examination/study. > Interpreting Provider: Vanessa Kumar MD on 10/24/2022 2:17 PM Procedure Note Vanessa Kumar MD - 10/24/2022 PROCEDURE: XR ABDOMEN KUB PORTABLE, DATE/TIME OF EXAM: 10/24/2022 2:04PM, LOCATION [facility] INDICATION: R47.1: Dysarthria ADDITIONAL CLINICAL INFORMATION: Ordering Provider Reason For Exam: ngt placement COMPARISON: Portable KUB dated 10/23/2022 FINDINGS/IMPRESSION: The enteric tube courses below the diaphragm with tip superimposing the gastric pyloric region. Drafted by Agnes Olmos DO (residential program director). I, Vanessa Kumar MD have personally reviewed and interpreted this examination/study. > Interpreting Provider: Vanessa Kumar MD on 32:17 PM Emir Vail MD DIAGNOSTIC IMAGING O RDERABLES * CULTURE BLOOD (10/24/2022 1:13 PM CDT) Pathologist [facility] Culture No growth day 5 ROSELIA 10/29/2022 4:32 PM CDT [facility] MICROBIOLOGY Blood PERIPHERAL BLOOD / Unknown Venipuncture / Unknown 10/24/2022 1:13 PM CDT 10/24/2022 1:28 PM CDT Emir Vail MD LAB - MICROBIOLOGY O RDERABLES [facility] MICROBIOLOGY [address] [place] [address], [facility] [phone] * (ABNORMAL) GLUCOSE - POINT OF CARE (10/24/2022 12:37 PM CDT) Glucose WB/POC 130(H) 70 - 115 mg/dL 10/24/2022 5:34 PM CDT [facility] Specimen Type Cap Fingerstick 2022 5:34 PM CDT [facility] Blood BLOOD SPECIMEN / Unknown 10/24/2022 12:37 PM CDT 10/24/2022 5:34 PM CDT Emir Vail MD LAB - POINT OF CARE ORDERABLES [facility] [address] [address] [phone] * MRI BRAIN WWO CONTRAST (10/24/2022 10:56 [...] right lateral ventricle, and approximately 3-4 mm bhapa-ko-alkc midline shift, grossly similar to the prior. [...] Report dictated by Tim Major MD (residential program director). I, Jasper Sifuentes MD have personally reviewed and interpreted this examination/study. > Interpreting Provider: Jasper Sifuentes MD on 10/24/2022 1:59 PM Narrative 10/24/2022 1:59 PM CDT PROCEDURE: ??MRI BRAIN WWO CONTRAST, DATE/TIME OF EXAM: ??10/24/2022 10:56 AM, LOCATION ??[facility] INDICATION: I63.411: Acute cerebrovascular accident (CVA) [...] right lateral ventricle, and approximately 3-4 mm xmfcb-ao-aunu midline shift at the level of the [...] CONTRAST, DATE/TIME OF EXAM: 10/24/2022 10:56AM, LOCATION [facility] INDICATION: I63.411: Acute cerebrovascular accident (CVA) [...] the right lateral ventricle, and approximately 3-4mm xeusp-gw-uwbi midline shift at the level of the [...] right lateral ventricle, and approximately 3-4 mm gppsu-ba-balw midline shift, grossly similar to the prior. [...] Report dictated by Tim Major MD (residential program director). I, Jasper Sifuentes MD have personally reviewed and interpretedthis examination/study. > Interpreting Provider: Jasper Sifuentes MD on 10/24/2022 1:59 PM Emir Vail MD MR ORDERABLES * (ABNORMAL) GLUCOSE - POINT OF CARE (10/24/2022 9:15 AM CDT) [facility] Glucose WB/POC 130(H) 70 - 115 mg/dL 10/24/2022 9:16 AM CDT [facility] Specimen Type Cap Fingerstick 2022 9:16 AM CDT [facility] Blood BLOOD SPECIMEN / Unknown 10/24/2022 9:15 AM CDT 10/24/2022 9:16 AM CDT Emir Vail MD LAB - POINT OF CARE ORDERABLES [facility] [address] [place] [address], [facility] [phone] * LAB MISC TEST (10/23/2022 8:29 PM CDT) Pathologist [facility] Test Name Phosphatidylserine Antibodies, IgG and IgM 10/27/2022 12:00 PM CDT [facility] Test Result See Scanned Report 10/27 12:00 PM CDT [facility] Comment Ref Lab [facility] 10/27/2022 12:00 PM CDT [facility] Blood BLOOD SPECIMEN / Unknown Venipuncture / Unknown 10/23/2022 8:29 PM CDT 10/23/2022 8:54 PM CDT Emir Vail MD LAB SEND OUT [facility] [place] [address] * (ABNORMAL) LUPUS ANTICOAGULANT PANEL (10/23/2022 8:29 PM CDT) APTT 21.4(L) 23.0 - 38.4 Seconds 10/24/2022 10:58 AM CDT [facility] PT 13.4 12.1 - 14.8 Seconds 10/24/2022 10:58 AM [facility] INR 1.0 See Comment 10/24/2022 10:58 AM [facility] [employer] Buffer 30.2 Seconds 023 10:58 AM [facility] [place] Phospholipid 26.9 Seconds 10/24/2022 10:58 AM [facility] [place] Delta 3.3 <8.0 Seconds 10/24/2022 10:58 AM [facility] Interpretation [place] Negative 10/24/2022 10:58 AM [facility] Comment:Up to 15-20% of douglas ents [...] Vail MD LAB - HEMATOLOGY ORD ERABLES [facility] [address] [place] [address], [facility] [phone] * CARDIOLIPIN ANTIBODY IGM (10/23/2022 8:29 PM CDT) Cardiolipin Antibody IgM <10 <=12 MPL 10/26/2022 1:32 AM CDT [facility] ([facility]) Comment: INTERPRETIVE INFORMATION: Anti-Cardiolipin IgM <=12 MPL: [...] other criteria phospholipid antibody tests. Performed By: [facility] [address] [place] [address] Bilingual Receptionist: Boo Bond MD, PhD CLIA Number: [id number] Blood BLOOD SPECIMEN / Unknown Venipuncture / Unknown 10/23/2022 8:29 PM CDT 10/23/2022 9:18 PM CDT Emir Vail MD LAB - SEROLOGY ORDER NISSA [facility]) [address] * CARDIOLIPIN ANTIBODY IGG (10/23/2022 8:29 PM CDT) Pathologist [facility] Cardiolipin Antibody IgG <10 <=14 GPL 10/26/2022 1:32 AM CDT [facility] ([facility]) Comment: INTERPRETIVE INFORMATION: Anti-Cardiolipin IgG Ab <=14 [...] other criteria phospholipid antibody tests. Performed By: [facility] [address] [place] [address] Bilingual Receptionist: Boo Bond MD, PhD CLIA Number: [id number] Blood BLOOD SPECIMEN / Unknown Venipuncture / Unknown 10/23/2022 8:29 PM CDT 10/23/2022 9:19 PM CDT Emir Vail MD LAB - SEROLOGY ORDER NISSA [facility]) [address] [place] [address], [facility] * CARDIOLIPIN ANTIBODY IGA (10/23/2022 8:29 PM CDT) Cardiolipin Antibody IgA <10 <=11 APL 10/26/2022 9:[address] [facility] ([facility]) Comment: INTERPRETIVE INFORMATION: Cardiolipin Antibodies, IgA <=11 APL: Negative 12-19 APL: Indeterminate 20-80 APL: Low to Moderately ??Positive 81 APL or above: High Positive Performed By: [facility] [address] [place] [address] Bilingual Receptionist: Boo Bond MD, PhD CLIA Number: [id number] Blood BLOOD SPECIMEN / Unknown Venipuncture / Unknown 10/23/2022 8:29 PM CDT 10/23/2022 9:19 PM CDT Emir Vail MD LAB - SEROLOGY ORDER NISSA [facility]) [address] [place] [address], [facility] * BETA-2 GLYCOPROTEIN 1 ANTIBODY IGG/IGM PANEL (10/23/2022 8:29 PM CDT) Beta-2 Glycoprotein Antibody IgG <10 <=20 SGU 10/26/2022 1:43 AM CDT [employer] ([facility]) Beta-2 Glycoprotein Antibody IgM <10 <=20 SMU 10/26/2022 1:43 AM CDT [facility]) Comment: INTERPRETIVE INFORMATION: H2Sbimmaxjscsy I, IgG and IgM Antibody The persistent [...] other criteria phospholipid antibody tests. Performed By: [facility] [address] [id number] Bilingual Receptionist: Boo Bond MD, PhD CLIA Number: [id number] Blood BLOOD SPECIMEN / Unknown Venipuncture / Unknown 10/23/2022 8:29 PM CDT 10/23/2022 9:19 PM CDT Emir Vail MD LAB - CHEMISTRY ORDE HIRAL [facility] [employer] ([facility]) [address] * BETA-2 GLYCOPROTEIN 1 ANTIBODY IGA (10/23/2022 8:29 PM CDT) [facility] Beta-2 Glycoprotein Antibody IgA <10 <=20 TRUDI 10/26/2022 1:43 AM CDT [facility] ([facility]) Comment: Performed By: [facility] [address] [place] [address] Bilingual Receptionist: Boo Bond MD, PhD CLIA Number: [id number] Blood BLOOD SPECIMEN / Unknown Venipuncture / Unknown 10/23/2022 8:29 PM CDT 10/23/2022 9:18 PM CDT Emir Vail MD LAB - SEROLOGY ORDER NISSA Performing Organization Address City/[facility]/ZIP Co de Phone Number [facility]) [address] [place] [address] * (ABNORMAL) BASIC METABOLIC PANEL (CALCIUM TOTAL) (10/23/2022 8:29 PM CDT) [facility] BUN 14 7 - 26 mg/dL 10/23/2022 9:14 PM CDT [facility] Creatinine 0.56 0.56 - 0.96 mg/dL 10/23/2022 9:14 PM CDT [facility] Sodium 140 136 - 145 mmol/L 10/23/2022 9:14 PM T [facility] Potassium 4.1 3.5 - 4.5 mmol/L 10/23/2022 9:14 PM T [facility] Chloride 110(H) 98 - 107 mmol/L 10/23/2022 9:14 PM CDT [facility] CO2 23 22 - 29 mmol/L 10/23/2022 9:14 PM T [facility] Glucose 119(H) 70 - 115 mg/dL 10/23/2022 9:14 PM T [facility] Calcium 8.5 8.4 - 10.2 mg/dL 10/23/2022 9:14 PM T [facility] Anion Gap 11 8 - 18 10/23/2022 9:14 PM [facility] BUN/Creatinine Ratio 25(H) 7 - 23 10/23/2022 9:14 PM [facility] Osmolality Calculated 292 270 - 300 mOsm/kg 10/23/2022 9:14 PM [facility] eGFR by CKD-EPI >90 >=90 mL/min/1.7 3 m2 10/23/2022 9:14 PM [facility] Blood BLOOD SPECIMEN / Unknown Venipuncture / Unknown 10/23/2022 8:29 PM CDT 10/23/2022 8:48 PM CDT Emir Vail MD LAB - CHEMISTRY [facility] Organization Address City/State/ZIP Co de Phone Number [facility] [address] [place] [address], [facility] [phone] * (ABNORMAL) CBC W AUTO DIFFERENTIAL (10/23/2022 8:29 PM CDT) WBC 17.4(H) 3.5 - 10.5 10? 3 /uL 10/23/2022 9:10 PM [facility] RBC 2.58(L) 3.80 - 5.20 10? 6 /uL 10/23/2022 9:10 PM [facility] Hemoglobin 8.0(L) 12.0 - 15.6 g/dL 10/23/2022 9:10 PM [facility] Hematocrit 24.4(L) 35.0 - 45.0 % 10/23/2022 9:10 PM [facility] MCV 94.6 80.7 - 98.3 fL 10/23/2022 9:10 PM [facility] MCH 31.0 26.7 - 34.0 pg 10/23/2022 9:10 PM [facility] MCHC 32.8 30.8 - 35.9 g/dL 10/23/2022 9:10 PM [facility] RDW-SD 46.7 36.0 - 50.0 fL 10/23/2022 9:10 PM [facility] RDW-CV 13.6 11.2 - 14.8 % 10/23/2022 9:10 PM [facility] Platelet Count 310 150 - 400 10? 3 /uL 10/23/2022 9:10 PM [facility] MPV 10.4 9.4 - 12.9 fL 10/23/2022 9:10 PM [facility] nRBC Absolute 0.03(H) 0 10? 3 /uL 10/23/2022 9:10 PM [facility] nRBC Auto 0.2(H) 0 /100 WBC 10/23/2022 9:10 PM [facility] Neutrophils % 69.8 35.0 - 70.0 % 10/23/2022 9:10 PM [facility] Lymphocytes % 19.2(L) 20.0 - 43.0 % 10/23/2022 9:10 PM [facility] Monocytes % 8.8 5.0 - 13.0 % 10/23/2022 9:10 PM [facility] Eosinophils % 1.1 0.0 - 6.0 % 10/23/2022 9:10 PM [facility] Basophil % 0.2 0.0 - 2.0 % 10/23/2022 9:10 PM [facility] Neutrophils Absolute 12.14(H) 1.60 - 7.00 10? 3 /uL 10/23/2022 9:10 PM [facility] Lymphocyte Absolute 3.33 1.10 - 3.90 10? 3 /uL 10/23/2022 9:10 PM [facility] Monocytes Absolute 1.52(H) 0.26 - 1.07 10? 3 /uL 10/23/2022 9:10 PM [facility] Eosinophils Absolute 0.19 0.00 - 0.47 10? 3 /uL 10/23/2022 9:10 PM [facility] Basophils Absolute 0.04 0.00 - 0.08 10? 3 /uL 10/23/2022 9:10 PM [facility] Immature Granulocytes % 0.9 0.0 - 1.0 % 10/23/2022 9:10 PM [facility] Immature Granulocytes Absolute 0.15 10/23/2022 9:10 PM CDT [facility] Blood BLOOD SPECIMEN / Unknown Venipuncture / Unknown 10/23/2022 8:29 PM CDT 10/23/2022 8:58 PM CDT Emir Vail MD LAB - HEMATOLOGY ORD DIMAS [address] [address], [place] [phone] * PHOSPHORUS BLOOD (10/23/2022 8:29 PM CDT) Phosphorus 3.1 2.9 - 5.1 mg/dL 10/23/2022 9:14 PM CDT [facility] Blood BLOOD SPECIMEN / Unknown Venipuncture / Unknown 10/23/2022 8:29 PM CDT 10/23/2022 8:48 PM CDT Emir Vail MD LAB - CHEMISTRY [facility] [address] [address], [place] [phone] * MAGNESIUM BLOOD (10/23/2022 8:29 PM CDT) Magnesium 2.1 1.6 - 2.6 mg/dL 10/23/2022 9:14 PM CDT [facility] Blood BLOOD SPECIMEN / Unknown Venipuncture / Unknown 10/23/2022 8:29 PM CDT 10/23/2022 8:48 PM CDT Emir Vail MD LAB - CHEMISTRY [facility] [address] [address], [place] [phone] * GLUCOSE - POINT OF CARE (10/23/2022 5:57 PM CDT) Glucose WB/POC 105 70 - 115 mg/dL 10/23/2022 5:58 PM CDT [facility] Specimen Type Cap Fingerstick 2022 5:58 PM CDT [facility] Blood BLOOD SPECIMEN / Unknown 10/23/2022 5:57 PM CDT 10/23/2022 5:58 PM CDT Emir Vail MD LAB - POINT OF CARE ORDERABLES Performing Organization Address City/[facility]/ZIP Co de Phone Number [address] [address], [place] [phone] * (ABNORMAL) C-REACTIVE PROTEIN (10/23/2022 3:47 PM CDT) C-Reactive Protein 12.1(H) <=0.5 mg/dL 10/23/2022 4:19 PM CDT [facility] Blood BLOOD SPECIMEN / Unknown Line Draw / Unknown 10/23/2022 3:47 PM CDT 10/23/2022 3:55 PM CDT Emir Vail MD LAB - CHEMISTRY ORDE RABLES Performing Organization Address City/[facility]/ZIP Co de Phone Number [address] [address], [place] [phone] * (ABNORMAL) ERYTHROCYTE SEDIMENTATION RATE (10/23/2022 3:47 PM CDT) Erythrocyte Sedimentation Rate Westergren 55(H) 0 - 20 MM/HR 10/23/2022 4:25 PM CDT [facility] Blood BLOOD SPECIMEN / Unknown Line Draw / Unknown 10/23/2022 3:47 PM CDT 10/23/2022 3:59 PM CDT Emir Vail MD LAB - HEMATOLOGY ORD ERABLES Performing Organization Address [facility]/ZIP Co de Phone Number [address] [address], [place] [phone] * CT CARDIAC ANGIO STRUCT MORPH (10/23/2022 [...] DATE/TIME OF EXAM: ??10/23/2022 3:08 PM, LOCATION ??[facility] INDICATION: I63.411: Acute cerebrovascular accident (CVA) [...] DATE/TIME OF EXAM: 10/23/2022 3:08 PM, LOCATION [facility] INDICATION: I63.411: Acute cerebrovascular accident (CVA) [...] DATE/TIME OF EXAM: ??10/23/2022 1:53 PM, LOCATION ??[facility] INDICATION: R47.1: Dysarthria ADDITIONAL CLINICAL INFORMATION: Ordering Provider Reason For Exam: ??NGT placement COMPARISON: Portable KUB dated 10/20/2022 FINDINGS/IMPRESSION: The enteric tube courses below the diaphragm with tip superimposing the stomach. Drafted by Agnes Olmos DO (residential program director). Vanessa Ornelas MD have personally reviewed and interpreted this examination/study. > Interpreting Provider: Vanessa Kumar MD on 10/24/2022 8:31 AM Procedure Note Vanessa Kumar MD - 10/24/2022 PROCEDURE: XR ABDOMEN KUB PORTABLE, DATE/TIME OF EXAM: 10/23/2022 1:53PM, LOCATION [facility] INDICATION: R47.1: Dysarthria ADDITIONAL CLINICAL INFORMATION: Ordering Provider Reason For Exam: NGT placement COMPARISON: Portable KUB dated 10/20/2022 FINDINGS/IMPRESSION: The enteric tube courses below the diaphragm with tip superimposing the stomach. Drafted by Agnes Olmos DO (residential program director). Vanessa Ornelas MD have personally reviewed and interpreted this examination/study. > Interpreting Provider: Vanessa Kumar MD on 38:31 AM Emir Vail MD DIAGNOSTIC IMAGING O RDERAJESSE * MRSA DNA PCR (10/23/2022 12:34 PM CDT) MRSA DNA by PCR Not detected Not detected 10/23/2022 8:44 PM CDT [facility] MICROBIOLOGY Microbiology SPECIMEN FROM NASAL FOSSAE / Unknown Collection / Unknown 10/23/2022 12:34 PM CDT 10/23/2022 12:50 PM CDT Narrative [facility] MICROBIOLOGY - 10/23/2022 8:44 PM CDT Methicillin-resistant Staphylococcus aureus (MRSA) DNA is not detected (presumed not colonized with MRSA). Emir Vail MD LAB - MICROBIOLOGY O DIONI Performing Organization Address City/[facility]/ZIP Co de Phone Number [facility] MICROBIOLOGY [address] [place] [address], [facility] [phone] * CULTURE BLOOD (10/23/2022 12:16 PM CDT) Culture No growth day 5 ROSELIA 10/28/2022 5:02 PM CDT [facility] MICROBIOLOGY Blood PERIPHERAL BLOOD / Unknown Venipuncture / Unknown 10/23/2022 12:16 PM CDT 10/23/2022 12:28 PM CDT Emir Vail MD LAB - MICROBIOLOGY O DIONI Performing Organization Address City/[facility]/ZIP Co de Phone Number [facility] MICROBIOLOGY [address] [place] [address], [facility] [phone] * CULTURE BLOOD (10/23/2022 12:05 PM CDT) Culture No growth day 5 ROSELIA 10/28/2022 5:02 PM CDT [facility] MICROBIOLOGY Blood PERIPHERAL BLOOD / Unknown Venipuncture / Unknown 10/23/2022 12:05 PM CDT 10/23/2022 12:28 PM CDT Emir Vail MD LAB - MICROBIOLOGY O DIONI [facility] MICROBIOLOGY [address] [place] [address], [facility] [phone] * GLUCOSE - POINT OF CARE (10/23/2022 11:24 AM CDT) Glucose WB/POC 113 70 - 115 mg/dL 10/23/2022 11:25 AM CDT [facility] Specimen Type Cap Fingerstick 2022 11:25 AM CDT [facility] Blood BLOOD SPECIMEN / Unknown 10/23/2022 11:24 AM CDT 10/23/2022 11:25 AM CDT Emir Vail MD LAB - POINT OF CARE ORDERABLES [facility] [address] [place] [address], [place] [phone] * ECHO SARAH COMPLETE (10/23/2022 9:07 AM [...] contrast. The probe was inserted by the general worker. There was moderate probe insertion difficulty. Moderate sedation was given. Sedation was managed by the general worker. Lidocaine administered during the study. 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 Endotracheal tube terminates in the midthoracic trachea. There is no focal consolidation. No pleural effusion or pneumothorax. The cardiomediastinal silhouette is normal. No acute osseous abnormality. Report dictated by Agnes Olmos DO (residential program director). IVanessa MD have personally reviewed and interpreted this examination/study. 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 Endotracheal tube terminates in the midthoracic trachea. There is no focal consolidation. No pleural effusion or pneumothorax.The cardiomediastinal silhouette is normal. No acute osseous abnormality. Report dictated by Agnes Olmos DO (residential program director). Vanessa Ornelas MD have personally reviewed and [...] is dictated by Miranda Bowen MD (residential program director) Jasper Ornelas MD have personally reviewed and interpreted this examination/study. > Interpreting Provider: Jasper Sifuentes MD on 10/23/2022 9:16 AM Narrative 10/23/2022 9:16 AM CDT PROCEDURE: ??CT HEAD WO CONTRAST, DATE/TIME OF EXAM: ??10/23/2022 5:53 AM, LOCATION ??[facility] INDICATION: I63.511: Right middle cerebral artery [...] DATE/TIME OF EXAM: 10/23/2022 5:53 AM, LOCATION [facility] INDICATION: I63.511: Right middle cerebral artery [...] is dictated by Miranda Bowen MD (residential program director) IJasper MD have personally reviewed and interpretedthis examination/study. > Interpreting Provider: Jasper Sifuentes MD on 10/23/2022 9:16 AM Emir Vail MD CT ORDERABLES * (ABNORMAL) BASIC METABOLIC PANEL (CALCIUM TOTAL) (10/23/2022 1:29 AM CDT) BUN 13 7 - 26 mg/dL 10/23/2022 2:09 AM CDT [facility] Creatinine 0.51(L) 0.56 - 0.96 mg/dL 10/23/2022 2:09 AM [facility] Sodium 140 136 - 145 mmol/L 10/23/2022 2:09 AM [facility] Potassium 3.4(L) 3.5 - 4.5 mmol/L 10/23/2022 2:09 AM [facility] Chloride 108(H) 98 - 107 mmol/L 10/23/2022 2:09 AM [facility] CO2 25 22 - 29 mmol/L 10/23/2022 2:09 AM [facility] Glucose 132(H) 70 - 115 mg/dL 10/23/2022 2:09 AM [facility] Calcium 8.3(L) 8.4 - 10.2 mg/dL 10/23/2022 2:09 AM [facility] Anion Gap 10 8 - 18 10/23/2022 2:09 AM [facility] BUN/Creatinine Ratio 25(H) 7 - 23 10/23/2022 2:09 AM [facility] Osmolality Calculated 292 270 - 300 mOsm/kg 10/23/2022 2:09 AM [facility] eGFR by CKD-EPI >90 >=90 mL/min/1.7 3 m2 10/23/2022 2:09 AM [facility] Blood BLOOD SPECIMEN / Unknown Venipuncture / Unknown 10/23/2022 1:29 AM CDT 10/23/2022 1:40 AM T Emir Vail MD LAB - CHEMISTRY [facility] Organization Address City/State/ZIP Co de Phone Number [facility] [address] [place] [address], [facility] [phone] * (ABNORMAL) CBC W AUTO DIFFERENTIAL (10/23/2022 1:29 AM CDT) WBC 16.7(H) 3.5 - 10.5 10? 3 /uL 10/23/2022 1:43 AM [facility] RBC 2.52(L) 3.80 - 5.20 10? 6 /uL 10/23/2022 1:43 AM [facility] Hemoglobin 7.8(L) 12.0 - 15.6 g/dL 10/23/2022 1:43 AM [facility] Hematocrit 23.8(L) 35.0 - 45.0 % 10/23/2022 1:43 AM [facility] MCV 94.4 80.7 - 98.3 fL 10/23/2022 1:43 AM [facility] MCH 31.0 26.7 - 34.0 pg 10/23/2022 1:43 AM [facility] MCHC 32.8 30.8 - 35.9 g/dL 10/23/2022 1:43 AM [facility] RDW-SD 46.7 36.0 - 50.0 fL 10/23/2022 1:43 AM [facility] RDW-CV 13.5 11.2 - 14.8 % 10/23/2022 1:43 AM [facility] Platelet Count 265 150 - 400 10? 3 /uL 10/23/2022 1:43 AM [facility] MPV 10.3 9.4 - 12.9 fL 10/23/2022 1:43 AM [facility] nRBC Absolute 0.00 0 10? 3 /uL 10/23/2022 1:43 AM [facility] nRBC Auto 0.0 0 /100 WBC 10/23/2022 1:43 AM [facility] Neutrophils % 70.7(H) 35.0 - 70.0 % 10/23/2022 1:43 AM [facility] Lymphocytes % 18.4(L) 20.0 - 43.0 % 10/23/2022 1:43 AM [facility] Monocytes % 9.2 5.0 - 13.0 % 10/23/2022 1:43 AM [facility] Eosinophils % 0.6 0.0 - 6.0 % 10/23/2022 1:43 AM [facility] Basophil % 0.3 0.0 - 2.0 % 10/23/2022 1:43 AM [facility] Neutrophils Absolute 11.79(H) 1.60 - 7.00 10? 3 /uL 10/23/2022 1:43 AM CDT [facility] Lymphocyte Absolute 3.07 1.10 - 3.90 10? 3 /uL 10/23/2022 1:43 AM CDT [facility] Monocytes Absolute 1.54(H) 0.26 - 1.07 10? 3 /uL 10/23/2022 1:43 AM CDT [facility] Eosinophils Absolute 0.10 0.00 - 0.47 10? 3 /uL 10/23/2022 1:43 AM CDT [facility] Basophils Absolute 0.05 0.00 - 0.08 10? 3 /uL 10/23/2022 1:43 AM CDT [facility] Immature Granulocytes % 0.8 0.0 - 1.0 % 10/23/2022 1:43 AM CDT [facility] Immature Granulocytes Absolute 0.13 10/23/2022 1:43 AM CDT [facility] Blood BLOOD SPECIMEN / Unknown Venipuncture / Unknown 10/23/2022 1:29 AM CDT 10/23/2022 1:40 AM CDT Emir Vail MD LAB - HEMATOLOGY ORD ERABLES [address] [address], [facility] [phone] * PHOSPHORUS BLOOD (10/23/2022 1:29 AM CDT) Phosphorus 3.4 2.9 - 5.1 mg/dL 10/23/2022 2:09 AM CDT [facility] Blood BLOOD SPECIMEN / Unknown Venipuncture / Unknown 10/23/2022 1:29 AM CDT 10/23/2022 1:40 AM CDT Emir Vail MD LAB - CHEMISTRY BIBIANA BLACKMAN [address] [address], [facility] [phone] * MAGNESIUM BLOOD (10/23/2022 1:29 AM CDT) Magnesium 2.0 1.6 - 2.6 mg/dL 10/23/2022 2:09 AM CDT [facility] Blood BLOOD SPECIMEN / Unknown Venipuncture / Unknown 10/23/2022 1:29 AM CDT 10/23/2022 1:40 AM CDT Emir Vail MD LAB - CHEMISTRY BIBIANA BLACKMAN [address] [address], [place] [phone] * (ABNORMAL) GLUCOSE - POINT OF CARE (10/22/2022 11:00 PM CDT) Glucose WB/POC 124(H) 70 - 115 mg/dL 10/22/2022 11:05 PM CDT [facility] Specimen Type Cap Fingerstick 2022 11:05 PM CDT [facility] Blood BLOOD SPECIMEN / Unknown 10/22/2022 11:00 PM CDT 10/22/2022 11:05 PM CDT Emir Vail MD LAB - POINT OF CARE ORDERABLES Performing Organization Address City/[facility]/ZIP Co de Phone Number [address] [address], [place] [phone] * (ABNORMAL) GLUCOSE - POINT OF CARE (10/22/2022 5:41 PM CDT) Glucose WB/POC 127(H) 70 - 115 mg/dL 10/22/2022 5:42 PM CDT [facility] Specimen Type Cap Fingerstick 2022 5:42 PM CDT [facility] Blood BLOOD SPECIMEN / Unknown 10/22/2022 5:41 PM CDT 10/22/2022 5:42 PM CDT Emir Vail MD LAB - POINT OF CARE ORDERABLES [address] [address], [facility] [phone] * GLUCOSE - POINT OF CARE (10/22/2022 2:57 PM CDT) Glucose WB/POC 98 70 - 115 mg/dL 10/22/2022 2:59 PM CDT [facility] Specimen Type Cap Fingerstick 2022 2:59 PM CDT [facility] Blood BLOOD SPECIMEN / Unknown 10/22/2022 2:57 PM CDT 10/22/2022 2:59 PM CDT Emir Vail MD LAB - POINT OF CARE ORDERABLES [facility] [address] [place] [address], [facility] [phone] * CT HEAD WO CONTRAST (10/22/2022 2:32 [...] hemorrhage. Report dictated by Lorenzo Horta MD (resident associate). I, Lonnie Rae MD have personally reviewed [...] hemorrhage. Report dictated by Lorenzo Horta MD (resident associate). I, Lonnie Rae MD have personally reviewed and interpreted this examination/study. > Interpreting Provider: Lonnie Rae MD on 10/22/2022 3:10 PM Emir Vail MD CT ORDERABLES * GLUCOSE - POINT OF CARE (10/22/2022 8:58 AM CDT) Glucose WB/POC 109 70 - 115 mg/dL 10/22/2022 8:59 AM CDT [facility] Specimen Type Cap Fingerstick 2022 8:59 AM CDT [facility] Blood BLOOD SPECIMEN / Unknown 10/22/2022 8:58 AM CDT 10/22/2022 8:59 AM CDT Emir Vail MD LAB - POINT OF CARE ORDERABLES Performing Organization Address City/State/[facility] Co de Phone Number [address] [address], [facility] [phone] * CT HEAD WO CONTRAST (10/22/2022 5:35 [...] DATE/TIME OF EXAM: ??10/22/2022 5:35 AM, LOCATION ??[facility] INDICATION: I63.511: Right middle cerebral artery [...] DATE/TIME OF EXAM: 10/22/2022 5:35 AM, LOCATION [facility] INDICATION: I63.511: Right middle cerebral artery [...] AUTO CITRATED BLOOD (10/22/2022 1:53 AM CDT) [facility] Platelet Count Citrated Blood 199 150 - 400 10? 3 /uL 10/22/2022 2:21 AM CDT [facility] Blood BLOOD SPECIMEN / Unknown Venipuncture / Unknown 10/22/2022 1:53 AM CDT 10/22/2022 2:05 AM CDT Emir Vail MD LAB - HEMATOLOGY ORD ERABLES [address] [address], [place] [phone] * (ABNORMAL) GLUCOSE - POINT OF CARE (10/21/2022 11:18 PM CDT) [facility] Glucose WB/POC 171(H) 70 - 115 mg/dL 10/21/2022 11:23 PM CDT [facility] Specimen Type Venous 10/21/2022 11:23 PM CDT [facility] Blood BLOOD SPECIMEN / Unknown 10/21/2022 11:18 PM CDT 10/21/2022 11:23 PM CDT Emir Vail MD LAB - POINT OF CARE ORDERABLES [address] [address], [place] [phone] * (ABNORMAL) BASIC METABOLIC PANEL (CALCIUM TOTAL) (10/21/2022 11:16 PM CDT) [facility] BUN 16 7 - 26 mg/dL 10/21/2022 11:51 PM CDT [facility] Creatinine 0.65 0.56 - 0.96 mg/dL 10/21/2022 11:51 PM CDT [facility] Sodium 142 136 - 145 mmol/L 10/21/2022 11:51 PM [facility] Potassium 3.7 3.5 - 4.5 mmol/L 10/21/2022 11:51 PM [facility] Chloride 111(H) 98 - 107 mmol/L 10/21/2022 11:51 PM [facility] CO2 20(L) 22 - 29 mmol/L 10/21/2022 11:51 PM [facility] Glucose 120(H) 70 - 115 mg/dL 10/21/2022 11:51 PM [facility] Calcium 8.0(L) 8.4 - 10.2 mg/dL 10/21/2022 11:51 PM [facility] Anion Gap 15 8 - 18 10/21/2022 11:51 PM [facility] BUN/Creatinine Ratio 25(H) 7 - 23 10/21/2022 11:51 PM [facility] Osmolality Calculated 296 270 - 300 mOsm/kg 10/21/2022 11:51 PM [facility] eGFR by CKD-EPI >90 >=90 mL/min/1.7 3 m2 10/21/2022 11:51 PM [facility] Blood BLOOD SPECIMEN / Unknown Venipuncture / Unknown 10/21/2022 11:16 PM CDT 10/21/2022 11:27 PM CDT Emir Vail MD LAB - CHEMISTRY BIBIANA BLACKMAN [facility] Organization Address City/State/ZIP Co de Phone Number [facility] [address] [place] [address], [facility] [phone] * (ABNORMAL) CBC W AUTO DIFFERENTIAL (10/21/2022 11:16 PM CDT) WBC 18.4(H) 3.5 - 10.5 10? 3 /uL 10/22/2022 12:26 AM [facility] RBC 2.62(L) 3.80 - 5.20 10? 6 /uL 10/22/2022 12:26 AM [facility] Hemoglobin 8.1(L) 12.0 - 15.6 g/dL 10/22/2022 12:26 AM [facility] Hematocrit 25.1(L) 35.0 - 45.0 % 10/22/2022 12:26 AM [facility] MCV 95.8 80.7 - 98.3 fL 10/22/2022 12:26 AM [facility] MCH 30.9 26.7 - 34.0 pg 10/22/2022 12:26 AM [facility] MCHC 32.3 30.8 - 35.9 g/dL 10/22/2022 12:26 AM [facility] RDW-SD 48.6 36.0 - 50.0 fL 10/22/2022 12:26 AM [facility] RDW-CV 14.0 11.2 - 14.8 % 10/22/2022 12:26 AM [facility] Platelet Count 10/22/2022 12:26 AM [facility] Comment: Platelets are clumped, appear as decreased on the slide. ??A blue top citrated tube is required for a platelet count. ?? Notified Shauna Martines RN ??at 1225 on 10/22/2022. MPV 10/22/2022 12:26 AM [facility] Comment:Unable to Report Immature Platelet Fraction 10/22/2022 12:26 AM [facility] Comment:Unable to Report nRBC Absolute 0.00 0 10? 3 /uL 10/22/2022 12:26 AM [facility] nRBC Auto 0.0 0 /100 WBC 10/22/2022 12:26 AM [facility] Neutrophils % 69.8 35.0 - 70.0 % 10/22/2022 12:26 AM [facility] Lymphocytes % 18.4(L) 20.0 - 43.0 % 10/22/2022 12:26 AM [facility] Monocytes % 10.9 5.0 - 13.0 % 10/22/2022 12:26 AM [facility] Eosinophils % 0.1 0.0 - 6.0 % 10/22/2022 12:26 AM [facility] Basophil % 0.1 0.0 - 2.0 % 10/22/2022 12:26 AM [facility] Neutrophils Absolute 12.87(H) 1.60 - 7.00 10? 3 /uL 10/22/2022 12:26 AM [facility] Lymphocyte Absolute 3.38 1.10 - 3.90 10? 3 /uL 10/22/2022 12:26 AM [facility] Monocytes Absolute 2.00(H) 0.26 - 1.07 10? 3 /uL 10/22/2022 12:26 AM [facility] Eosinophils Absolute 0.01 0.00 - 0.47 10? 3 /uL 10/22/2022 12:26 AM [facility] Basophils Absolute 0.02 0.00 - 0.08 10? 3 /uL 10/22/2022 12:26 AM [facility] Immature Granulocytes % 0.7 0.0 - 1.0 % 10/22/2022 12:26 AM [facility] Immature Granulocytes Absolute 0.13 10/22/2022 12:26 AM [facility] Blood BLOOD SPECIMEN / Unknown Venipuncture / Unknown 10/21/2022 11:16 PM CDT 10/21/2022 11:27 PM CDT Emir Vail MD LAB - HEMATOLOGY ORD ERABLES [address] [address], [place] [phone] * (ABNORMAL) PHOSPHORUS BLOOD (10/21/2022 11:16 PM CDT) Phosphorus 2.7(L) 2.9 - 5.1 mg/dL 10/21/2022 11:51 PM CDT [facility] Blood BLOOD SPECIMEN / Unknown Venipuncture / Unknown 10/21/2022 11:16 PM CDT 10/21/2022 11:27 PM CDT Emir Vail MD LAB - CHEMISTRY ORDDanyelle BLACKMAN [address] [address], [place] [phone] * MAGNESIUM BLOOD (10/21/2022 11:16 PM CDT) Magnesium 2.2 1.6 - 2.6 mg/dL 10/21/2022 11:51 PM CDT [facility] Blood BLOOD SPECIMEN / Unknown Venipuncture / Unknown 10/21/2022 11:16 PM CDT 10/21/2022 11:27 PM CDT Emir Vial MD LAB - CHEMISTRY ORDE HIRAL [facility] [address] [place] [address], [place] [phone] * (ABNORMAL) GLUCOSE - POINT OF CARE (10/21/2022 6:43 PM CDT) Glucose WB/POC 129(H) 70 - 115 mg/dL 10/21/2022 6:44 PM CDT [facility] Specimen Type Cap Fingerstick 2022 6:44 PM CDT [facility] Blood BLOOD SPECIMEN / Unknown 10/21/2022 6:43 PM CDT 10/21/2022 6:44 PM CDT Emir Vail MD LAB - POINT OF CARE ORDERABLES [facility] [address] [place] [address], [place] [phone] * (ABNORMAL) GLUCOSE - POINT OF CARE (10/21/2022 12:10 PM CDT) Glucose WB/POC 127(H) 70 - 115 mg/dL 10/21/2022 12:15 PM CDT [facility] Specimen Type Cap Fingerstick 2022 12:15 PM CDT [facility] Blood BLOOD SPECIMEN / Unknown 10/21/2022 12:10 PM CDT 10/21/2022 12:14 PM CDT Emir Vail MD LAB - POINT OF CARE ORDERABLES [facility] [address] [place] [address], [facility] [phone] * XR CHEST 1VW PORTABLE (10/21/2022 8:53 AM CDT) Anatomical Region Laterality Modality Chest Radiographic Irene ging 10/21/2022 2:30 PM CDT Narrative 10/21/2022 5:59 PM CDT PROCEDURE: ??XR CHEST 1VW PORTABLE, DATE/TIME OF EXAM: ??10/21/2022 8:53 AM, LOCATION ??[facility] INDICATION: R53.1: Weakness ADDITIONAL CLINICAL INFORMATION: [...] dictated by Christopher Tobin MD, MD (residential program director). HEATHER Ornelas MD have personally reviewed and interpreted this examination/study. > Interpreting Provider: HEATHER FREGOSO MD on 10/21/2022 5:59 PM Procedure Note Heather Fregoso MD - 10/21/2022 PROCEDURE: XR CHEST 1VW PORTABLE, DATE/TIME OF EXAM: 10/21/2022 8:53AM, LOCATION [facility] INDICATION: R53.1: Weakness ADDITIONAL CLINICAL INFORMATION: [...] dictated by Christopher Tobin MD, MD (residential program director). HEATHER Ornelas MD have personally reviewed and interpreted this examination/study. > Interpreting Provider: HEATHER FREGOSO MD on 10/21/2022 5:59 PM Emir Vail MD DIAGNOSTIC IMAGING O RDERABLES * (ABNORMAL) BLOOD GASES ART + COOX PANEL (10/21/2022 8:01 AM [facility]) pH Arterial 7.40 7.35 - 7.45 pH 10/21/2022 8:09 AM [facility] pO2 Arterial 143(H) 80 - 100 mmHg 10/21/2022 8:09 AM [facility] pCO2 Arterial 31(L) 35 - 45 mmHg 8:09 AM [facility] HCO3 Arterial 19.2(L) 20.0 - 30.0 mmol/L 10/21/2022 8:09 AM [facility] BE Arterial -4.8(L) -2.0 - 2.0 mmol/L 10/21/2022 8:09 AM [facility] Oxyhemoglobin Arterial 97.2 % 10/21/2022 8:09 AM [facility] Dexoyhemoglobin (HHB) % <1.0 % 10/21/2022 8:09 AM [facility] Methemoglobin <0.8 0.0 - 2.0 % 10/21/2022 8:09 AM [facility] Carboxyhemoglobin 1.4 0.0 - 2.0 % 2022 8:09 AM [facility] O2 Content Arterial 13.6 Interpret within clinical context ml/dL 10/21/2022 8:09 AM [facility] Hemoglobin by COOX 9.7(L) 12.0 - 15.6 g/dL 10/21/2022 8:09 AM [facility] O2 Saturation Arterial 99 90 - 100 % 10/21/2022 8:09 AM [facility] FI O2 Arterial 30.0 % 10/21/2022 8:09 AM [facility] Blood, arterial ARTERIAL BLOOD SPECIMEN / Unknown Arterial Puncture / Unknown 10/21/2022 8:01 AM CDT 10/21/2022 8:05 AM CDT [facility] - 10/21/2022 8:09 AM CDT Carboxyhemoglobin Normal Concentration: Non-smokers: 0-2%; Smokers: 0-9%; Toxic: >20% Emir Vail MD LAB - BLOOD GASES OR DERABLES Performing Organization Address City/State/[facility] Co de Phone Number [facility] [address] [place] [address], [facility] [phone] * (ABNORMAL) CBC W AUTO DIFFERENTIAL (10/21/2022 7:53 AM CDT) WBC 18.6(H) 3.5 - 10.5 10? 3 /uL 10/21/2022 8:11 AM [facility] RBC 3.01(L) 3.80 - 5.20 10? 6 /uL 10/21/2022 8:11 AM [facility] Hemoglobin 9.4(L) 12.0 - 15.6 g/dL 10/21/2022 8:11 AM [facility] Hematocrit 27.9(L) 35.0 - 45.0 % 10/21/2022 8:11 AM [facility] MCV 92.7 80.7 - 98.3 fL 10/21/2022 8:11 AM [facility] MCH 31.2 26.7 - 34.0 pg 10/21/2022 8:11 AM [facility] MCHC 33.7 30.8 - 35.9 g/dL 10/21/2022 8:11 AM [facility] RDW-SD 47.8 36.0 - 50.0 fL 10/21/2022 8:11 AM [facility] RDW-CV 14.1 11.2 - 14.8 % 10/21/2022 8:11 AM [facility] Platelet Count 259 150 - 400 10? 3 /uL 10/21/2022 8:11 AM [facility] MPV 10.5 9.4 - 12.9 fL 10/21/2022 8:11 AM [facility] nRBC Absolute 0.00 0 10? 3 /uL 10/21/2022 8:11 AM [facility] nRBC Auto 0.0 0 /100 WBC 10/21/2022 8:11 AM [facility] Neutrophils % 86.9(H) 35.0 - 70.0 % 10/21/2022 8:11 AM [facility] Lymphocytes % 7.3(L) 20.0 - 43.0 % 10/21/2022 8:11 AM [facility] Monocytes % 5.1 5.0 - 13.0 % 10/21/2022 8:11 AM [facility] Eosinophils % 0.0 0.0 - 6.0 % 10/21/2022 8:11 AM [facility] Basophil % 0.1 0.0 - 2.0 % 10/21/2022 8:11 AM [facility] Neutrophils Absolute 16.12(H) 1.60 - 7.00 10? 3 /uL 10/21/2022 8:11 AM [facility] Lymphocyte Absolute 1.36 1.10 - 3.90 10? 3 /uL 10/21/2022 8:11 AM [facility] Monocytes Absolute 0.94 0.26 - 1.07 10? 3 /uL 10/21/2022 8:11 AM [facility] Eosinophils Absolute 0.00 0.00 - 0.47 10? 3 /uL 10/21/2022 8:11 AM [facility] Basophils Absolute 0.02 0.00 - 0.08 10? 3 /uL 10/21/2022 8:11 AM [facility] Immature Granulocytes % 0.6 0.0 - 1.0 % 10/21/2022 8:11 AM [facility] Immature Granulocytes Absolute 0.12 10/21/2022 8:11 AM [facility] Blood BLOOD SPECIMEN / Unknown Line Draw / Unknown 10/21/2022 7:53 AM CDT 10/21/2022 8:06 AM T Emir Vail MD LAB - HEMATOLOGY ORD ERABLES [facility] [address] [address], [facility] [phone] * TROPONIN-I HIGH SENSITIVE REFLEX 1HOUR (10/21/2022 7:53 AM CDT) Troponin I High Sensitive <3 <=14 ng/L 10/21/2022 8:54 AM CDT [facility] Delta Troponin I HS 10/21/2022 8:54 AM CDT [facility] Comment:Delta value intentio princess not calculated. Baseline to 1 hour specimen collection interval exceeded. Blood BLOOD SPECIMEN / Unknown Line Draw / Unknown 10/21/2022 7:53 AM CDT 10/21/2022 8:06 AM CDT Jim Walter MD LAB - CHEMISTRY ORD DIMAS Performing Organization Address City/[facility]/ZIP Co de Phone Number [address] [address], [facility] [phone] * (ABNORMAL) PHOSPHORUS BLOOD (10/21/2022 4:59 AM CDT) Pathologist [facility] Phosphorus 2.2(L) 2.9 - 5.1 mg/dL 10/21/2022 5:46 AM CDT [facility] Blood BLOOD SPECIMEN / Unknown Venipuncture / Unknown 10/21/2022 4:59 AM CDT 10/21/2022 5:09 AM CDT Good Antunez MD LAB - CHEMISTRY ORDDanyelle BLACKMAN [address] [address], [facility] [phone] * MAGNESIUM BLOOD (10/21/2022 4:59 AM CDT) Magnesium 2.2 1.6 - 2.6 mg/dL 10/21/2022 5:47 AM CDT [facility] Comment:Hemolysis detected i n this specimen. Hemolysis is known to cause elevations in this analyte. Caution should be exercised in the interpretation of this result. Recommend repeat testing if clinically indicated. Blood BLOOD SPECIMEN / Unknown Venipuncture / Unknown 10/21/2022 4:59 AM CDT 10/21/2022 5:09 AM CDT Good Antunez MD LAB - CHEMISTRY BIBIANA BLACKMAN [facility] Organization Address City/State/ZIP Co de Phone Number [facility] [address] [place] [address], [facility] [phone] * (ABNORMAL) CBC W/O DIFFERENTIAL (10/21/2022 4:59 AM CDT) WBC 18.7(H) 3.5 - 10.5 10? 3 /uL 10/21/2022 5:25 AM [facility] RBC 2.98(L) 3.80 - 5.20 10? 6 /uL 10/21/2022 5:25 AM [facility] Hemoglobin 9.4(L) 12.0 - 15.6 g/dL 10/21/2022 5:25 AM [facility] Hematocrit 27.8(L) 35.0 - 45.0 % 10/21/2022 5:25 AM [facility] MCV 93.3 80.7 - 98.3 fL 10/21/2022 5:25 AM [facility] MCH 31.5 26.7 - 34.0 pg 10/21/2022 5:25 AM [facility] MCHC 33.8 30.8 - 35.9 g/dL 10/21/2022 5:25 AM [facility] RDW-SD 48.8 36.0 - 50.0 fL 10/21/2022 5:25 AM [facility] RDW-CV 14.3 11.2 - 14.8 % 10/21/2022 5:25 AM [facility] Platelet Count 260 150 - 400 10? 3 /uL 10/21/2022 5:25 AM [facility] MPV 10.6 9.4 - 12.9 fL 10/21/2022 5:25 AM [facility] nRBC Absolute 0.00 0 10? 3 /uL 10/21/2022 5:25 AM [facility] nRBC Auto 0.0 0 /100 WBC 10/21/2022 5:25 AM [facility] Blood BLOOD SPECIMEN / Unknown Venipuncture / Unknown 10/21/2022 4:59 AM CDT 10/21/2022 5:10 AM CDT Good Antunez MD LAB - HEMATOLOGY ORD ERABLES [facility] [address] [place] [address], [facility] [phone] * (ABNORMAL) BASIC METABOLIC PANEL (CALCIUM TOTAL) (10/21/2022 4:59 AM CDT) BUN 12 7 - 26 mg/dL 10/21/2022 5:47 AM [facility] Creatinine 0.64 0.56 - 0.96 mg/dL 10/21/2022 5:47 AM [facility] Sodium 142 136 - 145 mmol/L 10/21/2022 5:47 AM [facility] Potassium 4.8(H) 3.5 - 4.5 mmol/L 10/21/2022 5:47 AM [facility] Comment:Hemolysis detected i n this specimen. Hemolysis may cause false elevations in potassium leading to pseudohyperkalemia or masked hypokalemia. Recommend repeat testing if clinically indicated. Chloride 115(H) 98 - 107 mmol/L 10/21/2022 5:47 AM [facility] CO2 16(L) 22 - 29 mmol/L 10/21/2022 5:47 AM [facility] Glucose 169(H) 70 - 115 mg/dL 10/21/2022 5:47 AM [facility] Calcium 8.2(L) 8.4 - 10.2 mg/dL 10/21/2022 5:47 AM [facility] Anion Gap 16 8 - 18 10/21/2022 5:47 AM [facility] BUN/Creatinine Ratio 19 7 - 23 10/10 5:47 AM [facility] Osmolality Calculated 298 270 - 300 mOsm/kg 10/21/2022 5:47 AM [facility] eGFR by CKD-EPI >90 >=90 mL/min/1. 73 m2 10/21/2022 5:47 AM CDT [facility] Blood BLOOD SPECIMEN / Unknown Venipuncture / Unknown 10/21/2022 4:59 AM CDT 10/21/2022 5:09 AM CDT Good Antunez MD LAB - CHEMISTRY BIBIANA BLACKMAN [facility] [address] [place] [address], [facility] [phone] * SARAH BLOOD SCREEN W/REFLEX TITER (10/21/2022 4:59 AM CDT) SARAH IgG None Detected None Detected 10/22/2022 10:36 PM CDT [employer] ([facility]) Comment: If suspicion of connective tissue disease is strong and SARAH EIA is negative, consider testing for SARAH by IFA ([id number]). INTERPRETIVE INFORMATION: Anti-Nuclear Antibodies (SARAH), IgG by EZIO Antinuclear Antibodies (SARAH), IgG by EZIO: SARAH specimens are screened using enzyme-linked immunosorbent assay (EZIO) methodology. All EZIO results reported as Detected are further tested by indirect fluorescent assay (IFA) using HEp-2 substrate with an IgG-specific conjugate. The SARAH EZIO screen is designed to detect antibodies against dsDNA, histones, SS-A (Ro), SS-B (La), Goodwin, Goodwin/[employer], Scl-70, Sariah-1, centromeric proteins, other antigens extracted from the HEp-2 cell nucleus. SARAH EZIO assays have been reported to have lower sensitivities than SARAH IFA for systemic autoimmune rheumatic diseases (SARD). Negative results do not necessarily rule out SARD. Performed By: [employer] [address] [place] [address] Bilingual Receptionist: Boo Bond MD, PhD CLIA Number: [id number] Blood BLOOD SPECIMEN / Unknown Venipuncture / Unknown 10/21/2022 4:59 AM CDT 10/21/2022 5:06 AM CDT Good Antunez MD LAB - CHEMISTRY BIBIANA BLACKMAN [facility] vocaltap [facility]) [address] [place] [address], [facility] * FACTOR V LEIDEN MUTATION PANEL (10/21/2022 4:59 AM CDT) [facility] Signature Factor V Leiden Source Whole Blood 10/26/2022 4:[address] [facility] ([facility]) Factor V Leiden PCR/FRET Negative 10/26/2022 4:[address] [facility] ([facility]) Comment: Indication for testing: Assess genetic risk for thrombosis. NEGATIVE: The factor V Leiden variant, c.1601G>A; p.[id number], was not detected. This does not exclude [...] function in the F5 gene variant c.1601G>A (p.[id number]). Legacy nomenclature: [id number] (1691G>A) CLINICAL SENSITIVITY: 20-50 percent of individuals with an isolated VTE have the FVL variant. METHODOLOGY: Polymerase chain reaction and fluorescence monitoring. ANALYTICAL SENSITIVITY AND SPECIFICITY: 99 percent. LIMITATIONS: Diagnostic errors can occur due to rare sequence variations. F5 gene mutations, other than p.[id number], will not be detected. This test was developed and its performance characteristics determined by [facility]. It has not been cleared or approved by the [place] Food and Drug Administration. This test was performed in a CLIA certified laboratory and is intended for clinical purposes. Counseling and informed consent are recommended for genetic testing. Consent forms are available online. Performed By: [address] [address] Bilingual Receptionist: Boo Bond MD, PhD CLIA Number: [id number] Blood BLOOD SPECIMEN / Unknown Venipuncture / Unknown 10/21/2022 4:59 AM CDT 10/21/2022 5:10 AM CDT Good Antunez MD LAB - COAGULATION OR DERABLES Performing Organization Address City/[facility]/ZIP Co de Phone Number [facility] ([facility]) [address] [place] [id number] * COMPLEMENT C3 (10/21/2022 4:59 AM CDT) [facility] Complement C3 155 82 - 193 mg/dL 10/21/2022 5:47 AM CDT [facility] Blood BLOOD SPECIMEN / Unknown Venipuncture / Unknown 10/21/2022 4:59 AM CDT 10/21/2022 5:09 AM CDT Good Antunez MD LAB - CHEMISTRY [facility] [address] [address], [facility] [phone] * RHEUMATOID FACTOR BLOOD QUANTITATIVE (10/21/2022 4:59 AM CDT) [facility] Rheumatoid Factor <15 <30 IU/mL 10/21/2022 5:36 AM CDT [facility] Rheumatoid Factor Screen Negative Negative 10/21/2022 5:36 AM CDT [facility] Blood BLOOD SPECIMEN / Unknown Venipuncture / Unknown 10/21/2022 4:59 AM CDT 10/21/2022 5:06 AM CDT Good Antunez MD LAB - CHEMISTRY [facility] Performing Organization Address City/[facility]/ZIP Co de Phone Number [address] [address], [place] [phone] * TROPONIN-I HIGH SENSITIVE BASELINE + 1HR (10/21/2022 4:59 AM CDT) Troponin I High Sensitive <3 <=14 ng/L 10/21/2022 5:46 AM CDT [facility] Blood BLOOD SPECIMEN / Unknown Venipuncture / Unknown 10/21/2022 4:59 AM CDT 10/21/2022 5:09 AM CDT Jim Walter MD LAB - CHEMISTRY [facility] Performing Organization Address [facility]/ZIP Co de Phone Number [address] [address], [place] [phone] * (ABNORMAL) GLUCOSE - POINT OF CARE (10/21/2022 4:58 AM CDT) Glucose WB/POC 166(H) 70 - 115 mg/dL 10/21/2022 5:02 AM CDT [facility] Specimen Type Cap Fingerstick 2022 5:02 AM CDT [facility] Blood BLOOD SPECIMEN / Unknown 10/21/2022 4:58 AM CDT 10/21/2022 5:02 AM CDT Emir Vail MD LAB - POINT OF CARE ORDERABLES Performing Organization Address City/[facility]/ZIP Co de Phone Number [address] [address], [place] [phone] * (ABNORMAL) GLUCOSE - POINT OF CARE (10/21/2022 1:21 AM CDT) Glucose WB/POC 164(H) 70 - 115 mg/dL 10/21/2022 1:25 AM [facility] Specimen Type Cap Fingerstick 2022 1:25 AM [facility] Blood BLOOD SPECIMEN / Unknown 10/21/2022 1:21 AM CDT 10/21/2022 1:25 AM CDT Emir Vail MD LAB - POINT OF CARE ORDERABLES [facility] [address] [place] [address], [facility] [phone] * (ABNORMAL) BLOOD GASES ART + COOX PANEL (10/20/2022 10:46 PM CDT) [facility] pH Arterial 7.36 7.35 - 7.45 pH 10/20/2022 10:53 PM [facility] pO2 Arterial 179(H) 80 - 100 mmHg 10/20/2022 10:53 PM [facility] pCO2 Arterial 32(L) 35 - 45 mmHg 10:53 PM [facility] HCO3 Arterial 18.1(L) 20.0 - 30.0 mmol/L 10/20/2022 10:53 PM [facility] BE Arterial -6.5(L) -2.0 - 2.0 mmol/L 10/20/2022 10:53 PM [facility] Oxyhemoglobin Arterial 97.5 % 10/20/2022 10:53 PM [facility] Dexoyhemoglobin (HHB) % <1.0 % 10/20/2022 10:53 PM [facility] Methemoglobin 0.8 0.0 - 2.0 % 10/20/2022 10:53 PM [facility] Carboxyhemoglobin 1.0 0.0 - 2.0 % 2022 10:53 PM [facility] O2 Content Arterial 14.1 Interpret within clinical context ml/dL 10/20/2022 10:53 PM [facility] Hemoglobin by COOX 10.0(L) 12.0 - 15.6 g/dL 10/20/2022 10:53 PM CDT [facility] O2 Saturation Arterial 99 90 - 100 % 10/20/2022 10:53 PM CDT [facility] FI O2 Arterial 40.0 % 10/20/2022 10:53 PM CDT [facility] Blood, arterial ARTERIAL BLOOD SPECIMEN / Unknown Arterial Puncture / Unknown 10/20/2022 10:46 PM CDT 10/20/2022 10:51 PM CDT Narrative [facility] - 10/20/2022 10:53 PM CDT Carboxyhemoglobin Normal Concentration: Non-smokers: 0-2%; Smokers: 0-9%; Toxic: >20% Emir Vail MD LAB - BLOOD GASES OR DERABLES [facility] [address] [place] [address], [facility] [phone] * CT HEAD WO CONTRAST (10/20/2022 9:13 [...] prior. > Dictated by Bassam Jovel M.D. (resident associate) I, Gonzalez Velasco MD have personally reviewed and interpreted this examination/study. 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 (CMS/HCC) ADDITIONAL CLINICAL INFORMATION: Ordering Provider Reason For Exam: ??[facility] COMPARISON: Multiple prior studies, most recently CT [...] effacement of the right lateral ventricle, and [id number]-[id number] midline shift measuring up to 4 mm [...] DATE/TIME OF EXAM: 10/20/2022 9:13 PM, LOCATION [facility] INDICATION: I63.411: Acute cerebrovascular accident (CVA) due to embolism of right middle cerebral artery (CMS/HCC) ADDITIONAL CLINICAL INFORMATION: Ordering Provider Reason For Exam: [facility] COMPARISON: Multiple prior studies, most recently CT [...] effacement of the right lateral ventricle, and ihqjr-ph-medq midline shift measuring up to 4 mmand [...] prior. > Dictated by Bassam Jovel M.D. (resident associate) I, Gonzalez Velasco MD have personally reviewed and interpreted this examination/study. > Interpreting Provider: Gonzalez Velasco MD on 10/20/2022 11:06 PM Emir Vail MD CT ORDERABLES * (ABNORMAL) BLOOD GAS+COOX+LYTES+METAB ARTERIAL POCT (10/20/2022 7:36 PM CDT) pH Arterial 7.36 7.35 - 7.45 pH 10/20/2022 7:36 PM [facility] pO2 Arterial 180(H) 80 - 100 mmHg 10/20/2022 7:36 PM [facility] pCO2 Arterial 36 35 - 45 mmHg 7:36 PM [facility] HCO3 Arterial 20.3 20.0 - 30.0 mmol/L 10/20/2022 7:36 PM [facility] BE Arterial -4.6(L) -2.0 - 2.0 mmol/L 10/20/2022 7:36 PM [facility] Oxyhemoglobin Arterial 97.1 % 10/20/2022 7:36 PM [facility] Dexoyhemoglobin (HHB) % 1.1 % 10/20/2022 7:36 PM [facility] Methemoglobin 0.8 0.0 - 2.0 % 10/20/2022 7:36 PM [facility] Carboxyhemoglobin 1.0 0.0 - 2.0 % 2022 7:36 PM [facility] Comment:Carboxyhemoglobin No rmal Concentration: Non-smokers: 0-2%; Smokers: 0- 9%; Toxic: >20% O2 Content Arterial 13.4 Interpret within clinical context ml/dL 10/20/2022 7:36 PM [facility] Hemoglobin by COOX 9.5(L) 12.0 - 15.6 g/dL 10/20/2022 7:36 PM [facility] O2 Saturation Arterial 99 90 - 100 % 10/20/2022 7:36 PM [facility] Sodium Whole Blood 143 135 - 145 mmol/L 10/20/2022 7:36 PM T [facility] Potassium Whole Blood 3.6 3.5 - 5.5 mmol/L 10/20/2022 7:36 PM [facility] Chloride WB 116(H) 78 - 107 mmol/L 10/20/2022 7:36 PM [facility] Calcium Ionized 1.03 mmol/L 7:36 PM [facility] Ionized Calcium pH Adjusted 1.01(L) 1.19 - 1.34 mmol/L 10/20/2022 7:36 PM [facility] Anion Gap (AG) Arterial 10 8 - 18 mmol/L 10/20/2022 7:36 PM [facility] Glucose WB 155(H) 70 - 115 mg/dL 10/20/2022 7:36 PM [facility] Lactic Acid Whole Blood 1.6 <=2.0 mmol/L 10/20/2022 7:36 PM [facility] Blood, arterial ARTERIAL BLOOD SPECIMEN / Unknown 10/20/2022 7:36 PM CDT 10/20/2022 7:36 PM CDT Emir Vail MD LAB - POINT OF CARE ORDERABLES [facility] [address] [place] [address], [facility] [phone] * BLOOD GAS ART+LYTES+METAB+COOX POC NOTIF (10/20/2022 7:27 PM CDT) Comment Notification Label Only - See Separate Report 10/20/2022 9:00 PM T [facility] Other MISCELLANEOUS SAMPLES / Unknown 10/20/2022 7:27 PM CDT 10/20/2022 7:32 PM CDT Lianet Diaz MD LAB - BLOOD GASES OR DERABLES [address] [address], [facility] [phone] * HGB HCT PANEL (10/20/2022 4:40 PM CDT) Hemoglobin 12.0 12.0 - 15.6 g/dL 10/20/2022 5:01 PM CDT [facility] Hematocrit 36.6 35.0 - 45.0 % 10/20/2022 5:01 PM CDT [facility] Blood BLOOD SPECIMEN / Unknown Venipuncture / Unknown 10/20/2022 4:40 PM CDT 10/20/2022 4:56 PM CDT Good Antunez MD LAB - HEMATOLOGY ORD ERABLES Performing Organization Address City/[facility]/ZIP Co de Phone Number [address] [address], [facility] [phone] * ECHO COMPLETE W BUBBLE STUDY (10/20/2022 4:05 PM CDT) BSA [id number] m2 [facility] FUJ I PACS LV [...] PACS LVOT diam 2.1 cm [facility] CV [facility] I PACS LVOT area 3.46 cm2 [facility] I PACS LV RWT 0.65 [facility] I PACS LV Mahmood A2C 6.823 cm [facility] CV F UJI PACS LV Mahmood A4C 7.092 cm [facility] F UJI PACS IVS/LVPW 0.771 [facility] CV [facility] I PACS LV mass 2D 86.6232 66 [...] HR 154 [facility] CV FUJ I PACS [id number] 6.054 cm [facility] CV FUJ I PACS [id number] 5.318 cm [facility] CV FUJ I PACS [...] Report dictated by Royer Stovall MD (residential program director). IAmanda MD have personally reviewed and interpreted [...] Report dictated by Royer Stovall MD (residential program director). I, Amanda Prieto MD have personally reviewed and interpreted this examination/study. > Interpreting Provider: Amanda Prieto MD on 10/20/2022 3:31 PM Good Antunez MD DIAGNOSTIC IMAGING O RDERABLES * (ABNORMAL) GLUCOSE - POINT OF CARE (10/20/2022 11:32 AM CDT) Glucose WB/POC 124(H) 70 - 115 mg/dL 10/20/2022 11:42 AM CDT [facility] Specimen Type Cap Fingerstick 2022 11:42 AM CDT [facility] Blood BLOOD SPECIMEN / Unknown 10/20/2022 11:32 AM CDT 10/20/2022 11:42 AM CDT Good Antunez MD LAB - POINT OF CARE ORDERABLES [facility] [address] [place] [address], [facility] [phone] * (ABNORMAL) HEMOGLOBIN A1C (10/20/2022 10:15 AM CDT) Hemoglobin A1c 6.0(H) <=5.6 % 10/20/2022 2:15 PM CDT [facility] Estimated Average Glucose 126 mg/dL 10/20/2022 2:15 PM CDT [facility] Comment: HbA1c Interpretation: Normal : < 5.7% Pre-diabetes: 5.7-6.4% Diabetes: Equal to or greater than 6.5% Test results diagnostic of diabetes should be repeated for confirmation. Treatment target values recommended by ADA and other clinical organizations should be used to evaluate metabolic control in patients. Reference: [employer], Standards of Care in Diabetes [...] Antunez MD LAB - CHEMISTRY [facility] Organization Address City/State/ZIP Co de Phone Number [address] [address], [facility] [phone] * CT HEAD NON CONTRAST (10/20/2022 8:17 [...] - 115 mg/dL 10/20/2022 7:54 AM CDT [facility] Specimen Type Cap Fingerstick 2022 7:54 AM CDT [facility] Blood BLOOD SPECIMEN / Unknown 10/20/2022 7:47 AM CDT 10/20/2022 7:54 AM CDT Good Antunez MD LAB - POINT OF CARE ORDERABLES Performing Organization Address City/[facility]/ZIP Co de Phone Number [address] [address], [facility] [phone] * (ABNORMAL) GLUCOSE - POINT OF CARE (10/20/2022 7:44 AM CDT) Glucose WB/POC 32(LL) 70 - 115 mg/dL 10/20/2022 7:54 AM CDT [facility] Specimen Type Cap Fingerstick 2022 7:54 AM CDT [facility] Blood BLOOD SPECIMEN / Unknown 10/20/2022 7:44 AM CDT 10/20/2022 7:54 AM CDT Good Antunez MD LAB - POINT OF CARE ORDERABLES [address] [place] [address], [facility] [phone] * BLOOD TYPE VERIFICATION (10/20/2022 4:00 AM CDT) ABO Rh B POS 10/20/2022 4:3 7 AM CDT [facility] Blood Bank BLOOD SPECIMEN / Unknown Venipuncture / Unknown 10/20/2022 4:00 AM CDT 10/20/2022 4:07 AM CDT Tim Callahan MD LAB - BLOOD BANK ORD ERABLES [facility] [address] [place] [address], [facility] [phone] * (ABNORMAL) CBC W/O DIFFERENTIAL (10/20/2022 3:02 AM CDT) WBC 19.5(H) 3.5 - 10.5 10? 3 /uL 10/20/2022 3:30 AM [facility] RBC 3.83 3.80 - 5.20 10? 6 /uL 10/20/2022 3:30 AM [facility] Hemoglobin 11.9(L) 12.0 - 15.6 g/dL 10/20/2022 3:30 AM [facility] Hematocrit 35.4 35.0 - 45.0 % 10/20/2022 3:30 AM [facility] MCV 92.4 80.7 - 98.3 fL 10/20/2022 3:30 AM [facility] MCH 31.1 26.7 - 34.0 pg 10/20/2022 3:30 AM [facility] MCHC 33.6 30.8 - 35.9 g/dL 10/20/2022 3:30 AM [facility] RDW-SD 45.7 36.0 - 50.0 fL 10/20/2022 3:30 AM [facility] RDW-CV 13.5 11.2 - 14.8 % 10/20/2022 3:30 AM [facility] Platelet Count 292 150 - 400 10? 3 /uL 10/20/2022 3:30 AM [facility] MPV 9.9 9.4 - 12.9 fL 10/20/2022 3:30 AM [facility] nRBC Absolute 0.00 0 10? 3 /uL 10/20/2022 3:30 AM [facility] nRBC Auto 0.0 0 /100 WBC 10/20/2022 3:30 AM [facility] Blood BLOOD SPECIMEN / Unknown Venipuncture / Unknown 10/20/2022 3:02 AM CDT 10/20/2022 3:09 AM CDT Jim Walter MD LAB - HEMATOLOGY OR DERABLES [facility] [address] [place] [address], [facility] [phone] * (ABNORMAL) BASIC METABOLIC PANEL (CALCIUM TOTAL) (10/20/2022 3:02 AM CDT) BUN 6(L) 7 - 26 mg/dL 10/20/2022 3:36 AM [facility] Creatinine 0.50(L) 0.56 - 0.96 mg/dL 10/20/2022 3:36 AM [facility] Sodium 138 136 - 145 mmol/L 10/20/2022 3:36 AM [facility] Potassium 3.6 3.5 - 4.5 mmol/L 10/20/2022 3:36 AM [facility] Chloride 108(H) 98 - 107 mmol/L 10/20/2022 3:36 AM [facility] CO2 21(L) 22 - 29 mmol/L 10/20/2022 3:36 AM [facility] Glucose 140(H) 70 - 115 mg/dL 10/20/2022 3:36 AM [facility] Calcium 8.2(L) 8.4 - 10.2 mg/dL 10/20/2022 3:36 AM [facility] Anion Gap 13 8 - 18 10/20/2022 3:36 AM [facility] BUN/Creatinine Ratio 12 7 - 23 10/20/2022 3:36 AM [facility] Osmolality Calculated 286 270 - 300 mOsm/kg 10/20/2022 3:36 AM [facility] eGFR by CKD-EPI >90 >=90 mL/min/1.7 3 m2 10/20/2022 3:36 AM [facility] Blood BLOOD SPECIMEN / Unknown Venipuncture / Unknown 10/20/2022 3:02 AM CDT 10/20/2022 3:09 AM CDT Jim Walter MD LAB - CHEMISTRY ORD ERABLES [facility] [address] [place] [address], [facility] [phone] * LUPUS ANTICOAGULANT PANEL (10/20/2022 3:02 AM CDT) APTT 24.4 23.0 - 38.4 Seconds 10/20/2022 11:35 AM [facility] PT 13.6 12.1 - 14.8 Seconds 10/20/2022 11:35 AM [facility] INR 1.1 See Comment 10/20/2022 11:35 AM [facility] STACLOT-LA Buffer 37.8 Seconds 023 11:35 AM [facility] [employer]ACL[employer] Phospholipid 33.2 Seconds 10/20/2022 11:35 AM [facility] [place]ACL[employer]-LA Delta 4.6 <8.0 Seconds 10/20/2022 11:35 AM [facility] Interpretation STACLOT-LA Negative 10/20/2022 11:35 AM [facility] Comment:Up to 15-20% of douglas ents [...] Antunez MD LAB - HEMATOLOGY ORD ERABLES [facility] [place] [address] [place] [address], [facility] [phone] * (ABNORMAL) PROTEIN S ACTIVITY (10/20/2022 3:02 AM CDT) Protein S Activity 134(H) 57 - 131 % 10/21/2022 10:[address] [facility] ([facility]) Comment: INTERPRETIVE INFORMATION: Protein S, Functional Patients [...] reference intervals for this test in the [facility] Laboratory Test Directory ([employer]). Performed By: [employer] [address] [place] [address] Bilingual Receptionist: Boo Bond MD, PhD CLIA Number: [id number] Blood BLOOD SPECIMEN / Unknown Venipuncture / Unknown 10/20/2022 3:02 AM CDT 10/20/2022 3:09 AM CDT Good Antunez MD LAB - COAGULATION OR DERABLES [facility] ([facility]) [address] [place], [place] [address] * PROTEIN C ACTIVITY (10/20/2022 3:02 AM CDT) Protein C Activity 150 83 - 168 % 10/21/2022 9:44 PM CDT [facility] ([facility]) Comment: INTERPRETIVE INFORMATION: Protein C, Functional Patients [...] reference intervals for this test in the [facility] Test Directory ([employer]). Performed By: [facility] [employer] [address] [place] [address] Bilingual Receptionist: Boo Bond MD, PhD CLIA Number: [id number] Blood BLOOD SPECIMEN / Unknown Venipuncture / Unknown 10/20/2022 3:02 AM CDT 10/20/2022 3:09 AM CDT Good Antunez MD LAB - COAGULATION OR DERABLES [facility] [employer] ([facility]) [address] [place] [phone], [facility] * (ABNORMAL) LIPID PROFILE (10/20/2022 3:02 AM CDT) [facility] Signature Cholesterol Total 173 <200 mg/dL 10/20/2022 3:34 AM T [facility] HDL 42 >40 mg/dL 10/20/2022 3:34 AM [facility] Comment: ATP III Classification of HDL Cholesterol: ? <40 mg/dL: ??Considered a major risk factor. ? >60 mg/dL: ??Considered a negative risk factor. ? LDL Calculated 91 <100 mg/dL 10/20/2022 3:34 AM [facility] Comment: ATP III Classification of LDL [...] - CHEMISTRY ORD ERABLES Performing Organization Address City/[facility]/ZIP Co de Phone Number [address] [address], [place] [phone] * (ABNORMAL) GLUCOSE - POINT OF CARE (10/19/2022 7:50 PM CDT) Glucose WB/POC 140(H) 70 - 115 mg/dL 10/19/2022 7:50 PM CDT [facility] Specimen Type Cap Fingerstick 2022 7:50 PM CDT [facility] Blood BLOOD SPECIMEN / Unknown 10/19/2022 7:50 PM CDT 10/19/2022 7:50 PM CDT Good Antunez MD LAB - POINT OF CARE ORDERABLES Performing Organization Address City/[facility]/ZIP Co de Phone Number [address] [address], [place] [phone] * URINE DRUG SCREEN IMMUNOASSAY (10/19/2022 2:10 PM CDT) Amphetamines Screen Urine Negative Negative: < 1000 ng/mL 10/19/2022 2:48 PM CDT [facility] Barbiturates Screen Urine Negative Negative: < 200 ng/mL 10/19/2022 2:48 PM CDT [facility] Benzodiazepine Screen Urine Negative Negative: < 200 ng/mL 10/19/2022 2:48 PM CDT [facility] Opiates Urine Negative Negative: < 300 ng/mL 10/19/2022 2:48 PM CDT [facility] Cocaine Metabolites Urine Negative Negative: < 300 ng/mL 10/19/2022 2:48 PM CDT [facility] Phencyclidine Screen Urine Negative Negative: < 25 ng/ml 10/19/2022 2:48 PM CDT [facility] Cannabinoids Screen Urine Negative Negative: <50 ng/mL 10/19/2022 2:48 PM CDT [facility] Methadone Screen Urine Negative Negative: < 300 ng/mL 10/19/2022 2:48 PM CDT [facility] Fentanyl Screen Urine Negative Negative: <1.5 ng/mL 10/19/2022 2:48 PM CDT [facility] Urine URINE / Unknown Collection / Unknown 10/19/2022 2:10 PM CDT 10/19/2022 2:15 PM CDT Narrative [facility] - 10/19/2022 2:48 PM CDT The Urine Toxicology Screening Panel does not screen for Propoxyphene, Meprobamate, Carisoprodol, Trazodone, qgnf-pbk-htpucmv medications and/or volatiles (Acetone, Isopropanol, Methanol or Ethylene Glycol). Ethanol, Salicylate, Acetaminophen, Tricyclic Antidepressants and several therapeutic drugs may be individually assayed in serum or plasma specimen. Toxicology testing by the [facility] is an aid to medical diagnosis and treatment of patients. No documented chain of custody was maintained. Results are intended to be used for clinical purposes only. ? Good Antunez MD LAB - URINE CHEMISTR Y ORDERABLES Performing Organization Address City/[facility]/ZIP Co de Phone Number [facility] [address] [place] [address], [facility] [phone] * HCG URINE QUALITATIVE (10/19/2022 2:10 PM CDT) Test Urine Negative Negative 10/19/2022 2:29 PM CDT [facility] Urine URINE / Unknown Collection / Unknown 10/19/2022 2:10 PM CDT 10/19/2022 2:15 PM CDT Tim Callahan MD LAB - URINALYSIS ORD ERABLES Performing Organization Address [facility] Co de Phone Number [address] [address], [facility] [phone] * [facility] (10/19/2022 10:41 AM CDT) Anatomical Region [...] Time to Reperfusion: 9:54 Final TICI: 2b Juvenile Officer: Dr. Mitali Walter Track Fitter(s): Isak Monte Vessels: Ultrasound Guided Access of Femoral Artery Ultrasound Guided Access of Radial Artery Arterial line placement in the right radial artery Right Common Carotid Artery Angiogram: Cerebral Intracranial Catheterization Mechanical Thrombectomy with Retrievable Stent and Reperfusion Catheter Angiography Through the Existing Catheter Right Femoral Artery Angiogram Anesthesia: General Anesthesia was performed and monitored by an attending Anesthesiologist and their food trades assistants throughout the entirety of the case [...] artery demonstrated a patent vessel. A 5 tuvaluan sheath was placed in the radial artery [...] Following a series of exchanges, a 8 Wallisian sheath sheath was placed in the right femoral artery. A Guide and a 6 Wallisian Penumbra Select Serrano 2 catheter along with [...] system. Hemostasis was achieved using a 8 Wallisian Angio-Seal closure device. Hemostasis was immediate at [...] Walter MD - 11/07/2022 PROCEDURE: [facility] DATE/TIME OF EXAM: 10/19/2022 10:41 AM [...] Time to Reperfusion: 9:54 Final TICI: 2b Juvenile Officer: Dr. Mitali Walter Track Fitter(s): Isak Monte Vessels: Ultrasound Guided Access of Femoral Artery Ultrasound Guided Access of Radial Artery Arterial line placement in the right radial artery Right Common Carotid Artery Angiogram: Cerebral Intracranial Catheterization Mechanical Thrombectomy with Retrievable Stent and Reperfusion Catheter Angiography Through the Existing Catheter Right Femoral Artery Angiogram Anesthesia: General Anesthesia was performed and monitored by an attending Anesthesiologist and their food trades assistants throughout the entirety of the case [...] artery demonstrated a patent vessel. A 5 tuvaluan sheath was placedin the radial artery and was used as an arterial line. Limited ultrasoundof the common femoral artery demonstrated a patent vessel. The take off ofthe profunda and other arteries were identified. A scott scale image was documented. The right common femoral artery was accessed using a micropuncture needle. The needle entry was documented. Following aseries of exchanges, a 8 Wallisian sheath sheath was placed in the right femoral artery. A Guide and a 6 Wallisian StyleFeeder Select Serrano 2 catheter along with a [...] arterial system.Hemostasis was achieved using a 8 Wallisian Angio-Seal closure device. Hemostasis was immediate at [...] CDT) Antibody Screen NEG 9:34 AM CDT [facility] ABO Rh B POS 10/19/2022 9:34 AM CDT [facility] Blood Bank BLOOD SPECIMEN / Unknown Venipuncture / Unknown 10/19/2022 8:24 AM CDT 10/19/2022 8:44 AM CDT Tim Callahan MD LAB - BLOOD BANK ORD ERABLES [facility] [address] [place] [address], [facility] [phone] * PT-INR [facility] (10/19/2022 8:24 AM CDT) PT 12.3 12.1 - 14.8 Seconds 10/19/2022 9:04 AM CDT [facility] INR 0.9 See Comment 10/19/2022 9:04 AM CDT [facility] Comment:The suggested therap eutic range for standard coumadin (warfarin) therapy is an INR of 2.0-3.0. For high-risk patients (Mechanical Mitral Valve Prosthesis, etc.), the suggested prophylactic therapeutic range is an INR of 2.5-3.5. Blood BLOOD SPECIMEN / Unknown Venipuncture / Unknown 10/19/2022 8:24 AM CDT 10/19/2022 8:31 AM CDT Tim Callahan MD LAB - COAGULATION OR DERABLES [facility] [address] [place] [address], [facility] [phone] * (ABNORMAL) COMPREHENSIVE METABOLIC PANEL (10/19/2022 8:24 AM CDT) BUN 13 7 - 26 mg/dL 10/19/2022 8:57 AM [facility] Creatinine 0.84 0.56 - 0.96 mg/dL 10/19/2022 8:57 AM [facility] Sodium 139 136 - 145 mmol/L 10/19/2022 8:57 AM [facility] Potassium 4.2 3.5 - 4.5 mmol/L 10/19/2022 8:57 AM [facility] Chloride 108(H) 98 - 107 mmol/L 10/19/2022 8:57 AM [facility] CO2 21(L) 22 - 29 mmol/L 10/19/2022 8:57 AM [facility] Glucose 109 70 - 115 mg/dL 10/19/2022 8:57 AM [facility] Calcium 8.9 8.4 - 10.2 mg/dL 10/19/2022 8:57 AM [facility] Protein Total 7.7 6.0 - 8.3 g/dL 10/19/2022 8:57 AM [facility] Albumin 3.5 3.4 - 5.0 g/dL 10/19/2022 8:57 AM [facility] Bilirubin Total 0.1(L) 0.2 - 1.2 mg/dL 10/19/2022 8:57 AM [facility] Alkaline Phosphatase 52 40 - 150 U/L 10/19/2022 8:57 AM [facility] ALT 16 5 - 55 U/L 10/19/2022 8:57 AM [facility] AST 19 5 - 34 U/L 10/19/2022 8:57 AM [facility] Anion Gap 14 8 - 18 10/19/2022 8:57 AM [facility] BUN/Creatinine Ratio 15 7 - 23 10/19/2022 8:57 AM [facility] Osmolality Calculated 289 270 - 300 mOsm/kg 10/19/2022 8:57 AM [facility] Albumin/Globulin Ratio 0.8(L) 1.1 - 2.3 10/19/2022 8:57 AM [facility] [facility] eGFR by CKD-EPI >90 >=90 mL/min/1.7 3 m2 10/19/2022 8:57 AM [facility] Blood BLOOD SPECIMEN / Unknown Venipuncture / Unknown 10/19/2022 8:24 AM CDT 10/19/2022 8:31 AM T Tim Callahan MD LAB - CHEMISTRY [facility] Organization Address City/State/ZIP Co de Phone Number [facility] [address] [place] [address], [facility] [phone] * (ABNORMAL) CBC W AUTO DIFFERENTIAL (10/19/2022 8:24 AM CDT) WBC 10.9(H) 3.5 - 10.5 10? 3 /uL 10/19/2022 8:39 AM [facility] RBC 4.73 3.80 - 5.20 10? 6 /uL 10/19/2022 8:39 AM [facility] Hemoglobin 14.4 12.0 - 15.6 g/dL 10/19/2022 8:39 AM [facility] Hematocrit 42.6 35.0 - 45.0 % 10/19/2022 8:39 AM [facility] MCV 90.1 80.7 - 98.3 fL 10/19/2022 8:39 AM [facility] MCH 30.4 26.7 - 34.0 pg 10/19/2022 8:39 AM [facility] MCHC 33.8 30.8 - 35.9 g/dL 10/19/2022 8:39 AM [facility] RDW-SD 43.4 36.0 - 50.0 fL 10/19/2022 8:39 AM [facility] RDW-CV 13.1 11.2 - 14.8 % 10/19/2022 8:39 AM [facility] Platelet Count 342 150 - 400 10? 3 /uL 10/19/2022 8:39 AM [facility] MPV 10.4 9.4 - 12.9 fL 10/19/2022 8:39 AM [facility] nRBC Absolute 0.00 0 10? 3 /uL 10/19/2022 8:39 AM [facility] nRBC Auto 0.0 0 /100 WBC 10/19/2022 8:39 AM [facility] Neutrophils % 67.3 35.0 - 70.0 % 10/19/2022 8:39 AM [facility] Lymphocytes % 23.9 20.0 - 43.0 % 10/19/2022 8:39 AM [facility] Monocytes % 6.4 5.0 - 13.0 % 10/19/2022 8:39 AM [facility] Eosinophils % 1.4 0.0 - 6.0 % 10/19/2022 8:39 AM [facility] Basophil % 0.6 0.0 - 2.0 % 10/19/2022 8:39 AM [facility] Neutrophils Absolute 7.33(H) 1.60 - 7.00 10? 3 /uL 10/19/2022 8:39 AM [facility] Lymphocyte Absolute 2.61 1.10 - 3.90 10? 3 /uL 10/19/2022 8:39 AM [facility] Monocytes Absolute 0.70 0.26 - 1.07 10? 3 /uL 10/19/2022 8:39 AM [facility] Eosinophils Absolute 0.15 0.00 - 0.47 10? 3 /uL 10/19/2022 8:39 AM [facility] Basophils Absolute 0.07 0.00 - 0.08 10? 3 /uL 10/19/2022 8:39 AM CDT [facility] Immature Granulocytes % 0.4 0.0 - 1.0 % 10/19/2022 8:39 AM CDT [facility] Immature Granulocytes Absolute 0.04 10/19/2022 8:39 AM CDT [facility] Blood BLOOD SPECIMEN / Unknown Venipuncture / Unknown 10/19/2022 8:24 AM CDT 10/19/2022 8:31 AM CDT Tim Callahan MD LAB - HEMATOLOGY ORD ERABLES [facility] [address] [place] [address], [facility] [phone] * EKG 12-LEAD (10/19/2022 8:22 AM CDT) Ventricular Rate 129 BPM [facility] Atrial Rate 129 BPM [facility] P-R Interval 134 ms [facility] QRS Duration ms 90 ms [facility] Q-T Interval ms 318 ms [facility] QTC Calculation (Bezet) 465 ms [facility] Calculated P [place] 55 degrees [facility] MUSE Calculated R [place] 13 degrees [facility] MUSE Calculated T [place] 5 degrees SL MUSE Interpretation EKG SINUS TACHYCARDIA OTHERWISE NORMAL ECG NO PREVIOUS ECGS AVAILABLE Confirmed by SWATHI OTT MDSHORE ([id number]) on 10/19/2022 5:38:23 PM [facility] 10/19/2022 8:22 AM CDT 10/19/2022 5:38 PM CDT Tim Callahan MD ECG ORDERABLES [facility] * CT ANGIO BRAIN NECK STROKE [...] DATE/TIME OF EXAM: ??10/19/2022 8:16 AM, LOCATION ??[facility] INDICATION: Code Stroke ADDITIONAL CLINICAL INFORMATION: [...] STROKE, DATE/TIME OF EXAM: :16 AM, LOCATION [facility] INDICATION: Code Stroke ADDITIONAL CLINICAL INFORMATION: [...] withreadback comprehension and verification. > Interpreting Provider: Lonine Rae MD on 10/19/2022 8:57 AM Tim Callahan MD CT ORDERABLES * INR WHOLE BLOOD - POINT OF CARE (IP) STROKE (10/19/2022 8:09 AM CDT) INR 0.9 0.9 - 1.2 10/19/2022 8:18 AM CDT [facility] Device [id number] 10/19/2022 8:18 AM CDT [facility] Juvenile Officer ID [id number] 10/19/2022 8:18 AM CDT [facility] Blood BLOOD SPECIMEN / Unknown 10/19/2022 8:09 AM CDT 10/19/2022 8:18 AM CDT Provider Unknown LAB - POINT OF CARE ORDERABLES [address] [address], [facility] [phone] * CREATININE - POCT INTERFACED (10/19/2022 8:08 AM CDT) Creatinine POCT 0.78 0.30 - 1.30 mg/dL 10/19/2022 8:18 AM CDT [facility] eGFR >90 >90 mL/min/1.7 3 m2 10/19/2022 8:18 AM CDT [facility] Blood BLOOD SPECIMEN / Unknown 10/19/2022 8:08 AM CDT 10/19/2022 8:18 AM CDT Provider Unknown LAB - POINT OF CARE ORDERABLES [address] [address], [place] [phone] * CT BRAIN - Stroke (10/19/2022 8:03 [...] DATE/TIME OF EXAM: ??10/19/2022 8:04 AM, LOCATION ??[facility] INDICATION: Code Stroke ADDITIONAL CLINICAL INFORMATION: [...] DATE/TIME OF EXAM: 10/19/2022 8:04 AM, LOCATION [facility] INDICATION: Code Stroke ADDITIONAL CLINICAL INFORMATION: [...] - 115 mg/dL 10/19/2022 8:01 AM CDT [facility] Specimen Type Cap Fingerstick 2022 8:01 AM CDT [facility] Blood BLOOD SPECIMEN / Unknown 10/19/2022 7:56 AM CDT 10/19/2022 8:01 AM CDT Provider Unknown LAB - POINT OF CARE ORDERABLES [facility] [address] [place] [address], [facility] [phone] documented in this encounter Visit Diagnoses Diagnosis [...] removable percutaneous endoscopic gastrostomy (PEG) tube (HCC) Malnutrition, unspecified type (HCC) Iliac artery occlusion, right (HCC) Embolism and [...] Fever, Mild Pain, Moderate Pain, Starting on Tu11/14/22 at 1100, Until Sun11/17/22 at 1626, Patient [...] therapy: Blood, Urine/Genitourinary, Upper Respiratory, Lower Respiratory, RELATIONSHIP EXECUTIVE $ Given 11/17/2022 9:10 AM CDT 100 [...] EVERY 8 HOURS, First dose on Katy 11/16/22 at 1400, Until Discontinued, Flush each lumen [...] on [place]y 10/19/22 at 0900, Until Discontinued 0545 ($ Given [...] therapy: Blood, Urine/Genitourinary, Upper Respiratory, Lower Respiratory, RELATIONSHIP EXECUTIVE 0920 ($ Given - Provider: Radha Covarrubias RN)2128 ($ Given - Provider: Shruti Samuel, AMBROSE) [...] dose on Sun10/23/22 at 0915, Until Discontinued 09 ($ Given - Provider: Radha Covarrubias RN)2131 ($ Given - Provider: Shruti Samuel RN) 1207 ($ Given - Provider: Tasha Clay RN - Comment: AM dose given late)2146 ($ Given - Provider: Carrillo Avilez RN) 09 ($ Given - Provider: Chin Cabello, RN) [...] RN) 0910 ($ Given - Provider: Chin Cabello [...] ($ New Bag/Syringe - Provider: Tasha Clay, RN)1246 (Stopped - Provider: Tasha Clay, RN)2146 ($ New Bag/Syringe - Provider: Carrillo Avilez, AMBROSE)2226 (Stopped - Provider: Carrillo Avilez, RN) 0408 ($ New Bag/Syringe - Provider: Carrillo Avilez, RN)0443 (Stopped - Provider: Carrillo Avilez, AMBROSE)1327 ($ New Bag/Syringe - Provider: Chin Cabello, [...] Clay, RN)2148 ($ Given - Provider: Carrillo Avilez RN) [...] RN) 1012 (Not Administered - Provider: Tasha Clay, AMBROSE - Reason: Refused-Patient)2149 (Not Administered - Provider: Carrillo Avilez RN - Reason: Refused-Patient) 0910 ($ Given - Provider: Chin Cabello, RN) verapamil (Isoptin) tablet 40 mg 40 mg, Enteral Tube, EVERY 8 HOURS, First dose on Sun10/20/22 at 1515, Until Discontinued 0545 ($ Given - Provider: Bess John RN)1348 ($ Given - Provider: Radha Covarrubias, AMBROSE)2133 ($ Given - Provider: Shruti Samuel RN) 0556 ($ Given - Provider: Shruti Samuel RN)1512 ($ Given - Provider: Tasha Clay, AMBROSE)2155 ($ Given - Provider: Carrillo Avilez, AMBROSE) 0534 ($ Given - Provider: Carrillo Avilez, AMBROSE)1404 ($ Given - Provider: Chin Cabello, RN) vitamin D3 (Cholecalciferol) 25 MCG (1000 UNITS) tablet 2,000 Units 2,000 Units, Enteral Tube, DAILY, First dose (after last modification) on Sun10/21/22 at 0900, Until Discontinued, 1000 units = 25 mcg 0920 ($ Given - Provider: Radha Covarrubias RN) 1004 ($ Given - Provider: Tasha Clay, AMBROSE) 0910 ($ Given - Provider: Chin Cabello, RN) warfarin (Coumadin) dose per pharmacy Other, DAILY [...] request must be documented in the MAR. 09 ($ Given - Provider: Radha Covarrubias, RN) 0344 ($ Given - Provider: Shruti Samuel [...] documented as of this encounter Care Teams Confectionery Laboratory Manager Relationship Specialty Start Date End Date Jean Joy MD PCP - OBGYN 12/27/07 Yvan Booth MD [address] [place] [address] PCP - General 11/04/09 01/04/23 Jaden Thakur DO [address] [place] [address] [phone] PCP - Attributed-[facility] EHP STL 09/10/19 06/28/23 documented as of this encounter
--- OUTSIDE RECORDS SUMMARY | 2024-03-19 20:42 | XMS_ITS | Encounter Summary ---
Author Organization [facility] Address [address] [facility] [place] [address] Care Team Providers Care Civil Process Server Name Role Phone Jean Joy MD Unavailable [phone] Yvan Booth MD Primary Care Provider [phone] Jaden Thakur DO Unavailable [phone] Encounter Details Date Type Department Care Team (Late st Contact Info) Description 10/31/2022 1:48 PM CDT Anesthesia Event [facility] [address] [place] [address] She Ryan MD [address] [place] [address] [place] [address] Becky Escobedo, ELASTIC ATTACHER CHAINSTITCH-EXTRUSION OPERATOR [address] [place] [address] Anesthesia Record Procedure Summary Procedure Name Responsible Anesthesiologist Anesthesia Start Time Anesthesia Stop Time ESOPHAGOGASTRODUODENOSCOPY ( EGD) DIAGNOSTIC with PEG Placement (Esophagus) Events No events on file. Meds * Agents No agents on file. * Blood No blood administrations on file. Lines, Drains, and Airways No LDAs on file. documented in this encounter Social History Tobacco [...] Recorded Patient Health Questionnaire-2 Score 0 11/02/2022 [facility] Occupat [facility] - Occupational Stress [...] or have serious hearing difficult y? No 10/19/2022 Is person blind or have serious difficulty seein g? No 10/19/2022 Does person have serious dif ficulty walking/climbing stairs? Yes 10/19/2022 Does person have difficulty dressing/bathing? Ye s 10/19/2022 Does person have difficulty doing errands alone? Yes 10/19/2022 Cognitive Status Response Date of Assessm ent Does person have difficulty concentrating/remembering/making decisions? No 10/19/2022 documented as of this encounter Progress Notes * She Ryan MD - 10/31/2022 1:17 PM CDT ANESTHESIA PREOPERATIVE EVALUATION NOTE Procedure: ESOPHAGOGASTRODUODENOSCOPY (EGD) DIAGNOSTIC with PEG Placement (Esophagus) NPO status: Since Midnight (10/30/2022 9:54 AM) Vitals: Patient Vitals for the past 6 hrs: BP Temp Pulse Resp SpO2 Pain Rating Score #1 10/31/22 1031 136/68 -- 88 -- -- -- 10/31/22 0800 135/72 98.2 ??F (36.8 ??C) 75 19 95 % 0 LMP: Patient's last menstrual period was 02/01/2022 (approximate). OB Status: Continuous Control ANESTHESIA PRE-EVALUATION NOTE History of Present Illness: Patient is a 41 year old female with PMH of HTN, GERD, GENESIS who developed acute L-sided sensory and motor deficits, dysarthria, L gaze palsy, L hemianopsia. 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 Underwent R decompressive hemicraniectomy on 10/20/2022. 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 Plan for Peg tube placement today. Previous Airway Management: ETT Placed: Intubation Adjuncts: [...] right lateral ventricle, and approximately 3-4 mm [id number] midline shift, grossly similar to the prior. [...] Anesthetic Plan was discussed with the anesthesiologist, medical assistant dermatology and EXTRUSION OPERATOR. Overall additional findings/comments: Sandra Zavala APRN-CORY 10/31/2022 1:24 PM Chart review . BMI, [...] 0.9% NaCl 3 mL 3 mL at 10/31/22 0559 And ??? 0.9% NaCl 1-10 mL ??? 0.9% NaCl 3 mL 3 mL at 10/31/22 0600 And ??? 0.9% NaCl 3 mL ??? acetaminophen 500 mg 500 mg at 10/31/22 0608 ??? atorvastatin 80 mg 80 mg at 10/30/22 2140 ??? cefTRIAXone 2 g Stopped at 10/31/22 0300 ??? dextrose 5 % and lactated ringers Rate Verify at 10/30/22 2038 ??? diphenhydrAMINE-zinc acetate Given at 10/30/22 2142 ??? guaiFENesin 10 mL 10 mL at 10/31/22 1031 ??? heparin 500-2,150 Units/hr ??? hydrocortisone Given at 10/31/22 1032 ??? iopamidol 100 mL at 10/31/22 1009 ??? lactated ringers ??? lansoprazole 30 mg 30 mg at 10/31/22 0613 ??? loratadine 10 mg 10 mg at 10/31/22 1031 ??? metoprolol tartrate IR 25 mg 25 mg at 10/31/22 1031 ??? polyethylene glycol 3350 17 g 17 g at 10/31/22 1236 ??? senna-docusate 1 tablet 1 tablet at 10/31/22 1235 ??? tamsulosin 0.4 mg 0.4 mg at 10/31/22 1031 ??? vancomycin 1,750 mg Stopped at 10/31/22 0613 ??? vancomycin (VANCOCIN) IV dose per pharmacy ??? verapamil 40 mg 40 mg at 10/31/22 0559 ??? Vitamin D3 (cholecalciferol) 2,000 Units 2,000 [...] REPAIR OF FEMORAL ARTERY WITH PATCH. ANGIOGRAM OVERSEER KOSHER KITCHEN Status: Patient's last menstrual period was 02/01/2022 [...] Negative Recent Labs Base Name 10/28/22 2254 [id number] 105 SPECIMENTYPE Cap Fingerstick Recent Labs Component Name 10/31/22 0022 10/23/22 0129 10/22/22 0153 WBC 19.6* - - RBC 3.30* - - HCT 30.4* - - HGB 9.9* - - PLTCOUNT 442* - - PLT - - 199 MCV 92.1 - - MCH 30.0 - - MCHC 32.6 - - MPV 9.5 - - - = values in this interval not displayed. Recent Labs Component Name 10/29/22 1119 ABORH B POS ABSCG NEG Recent Labs Component Name 10/27/22 1208 BLOODU Negative NITRITE Negative PROTEINU Negative Recent Labs Component Name 10/31/22 0022 POTASSIUM 4.2 CALCIUM 8.4 CO2 24 GLUCOSE 119* BUN 8 CREATININE 0.56 Recent Labs Component Name 10/31/22 0022 MAGNESIUM 1.9 Recent Labs Component Name 10/31/22 0022 PHOS 4.1 Recent Labs Component Name 10/30/22 1333 PH 7.40 PO2 228* PCO2 39 BE -0.5 Recent Labs Component Name 10/31/22 0948 10/31/22 0022 PTT 27.2 - PT - 14.5 INR - 1.1 No results found for requested labs within last 120 days. Recent Labs Result Component Current Result Alkaline Phosphatase 52 (10/19/2022) ALT 16 (10/19/2022) Anion Gap (AG) Arterial 12 (10/30/2022) Anion Gap 13 (10/31/2022) AST 19 (10/19/2022) eGFR by CKD-EPI >90 (10/31/2022) documented in this encounter Plan of Treatment Not on file documented as of this encounter Visit Diagnoses Not on filedocumented in this encounter Care Teams Civil Process Server Relationship Specialty Start Date End Date Jean Joy MD PCP - OBGYN 12/27/07 Yvan Booth MD [address] [place] [phone] PCP - General 11/04/09 01/04/23 Jaden Thakur DO [address] [place] [address] [phone] PCP - Attributed-[facility] EHP STL 09/10/19 06/28/23 documented as of this encounter
--- OUTSIDE RECORDS SUMMARY | 2024-03-19 20:42 | XMS_ITS | Encounter Summary ---
Author Organization [facility] Address [address] [facility] [place] [address] Care Team Providers Care Program Medical Director Name Role Phone Jean Joy MD Unavailable [phone] Yvan Booth MD Primary Care Provider [phone] Jaden Thakur DO Unavailable [phone] Arlyn Hernandez RN Unavailable Arlyn Hernandez RN Unavailable [phone] Doreen Aviles Unavailable Jaden Thakur DO Primary Care Provider + Encounter Details Date Type Department Care Team (Late st Contact Info) Description 10/31/2022 Telephone [facility] - Centralized Scheduling [address] [place] [address] Emir Vail MD [address] [facility] [place] [address] Social History Tobacco Use Types Packs/Day Years [...] Recorded Patient Health Questionnaire-2 Score 0 11/02/2022 [facility] [...] slept in a correction (including now)? No 10/19/2022 Sex and Gender [...] No 10/19/2022 documented as of this encounter Plan of Treatment Not on file documented as of this encounter Visit Diagnoses Not on filedocumented in this encounter Additional Health Concerns Infection Onset Date Last Indicated Resolved Time COVID-19 Under Investigation 11/05/2022 11/05/2022 11/05/2022 5:32 PM CDT documented as of this encounter Care Teams Program Medical Director Relationship Specialty Start Date End Date Jean Joy MD PCP - OBGYN 12/27/07 Yvan Booth MD [address] [place] [phone] PCP - General 11/04/09 01/04/23 Jaden Thakur DO [address] [place] [id number] PCP - Attributed-[facility] EHP STL 09/10/19 06/28/23 Jaden Thakur DO [address] [place] [id number] PCP - General Family Medicine Geriatric Medicine 01/05/23 Arlyn Hernandez RN Post Acute Medical Laboratory TechniciansPackage Crimper 11/20/22 Arlyn Hernandez RN Post Acute Medical Laboratory TechniciansPackage Crimper 11/21/22 Doreen Aviles Care Coordination Specialist Care Management 11/30/22 01/18/23 documented as of this encounter
--- OUTSIDE RECORDS SUMMARY | 2024-03-19 20:44 | XMS_ITS | Encounter Summary ---
Author Organization [facility] Address [address] [facility] [place] [address] Care Team Providers Care Supervisory Geographer Name Role Phone Jean Joy MD Unavailable [phone] Yvan Booth MD Primary Care Provider Jaden Thakur DO Unavailable Reason for Visit * Auth/Cert (Routine) Specialty Diagnoses / Procedures Referred By Contac t Referred To Contact Referral ID Status Reason Start Date Expiration Date Visits Re quested Visits Authorized [id number] 1 1 Encounter Details Date Type Department Care Team (Latest Contact Info) Description 10/23/2022 9:07 AM CDT - 10/23/2022 11:59 PM CDT Hospital Encounter [facility] - Cardiac Head Cd Reactor Operator [address] [place] [phone] Emir Vail MD [address] [place] [address] [place] [phone] Discharge Disposition: Home or Self Care Social [...] very hard 10/19/2022 PHQ-2 Answer Date Recorded PHQ2 TOTAL SCORE 0 02/08/2022 [facility] - Occupational [...] No 10/19/2022 documented as of this encounter Medications at [...] mg subcutaneously every 12 hours 11/17/2022 01/05/2023 levonorgestrel-ethin yl estradiol (LESSINA-28) 0.1-20 MG-MCG tabletIndications:Co ntraceptive Therapy TAKE 1 TABLET BY MOUTH EVERY DAY FOR CONTROL Reasons: Control Treatment 84 tablet 4 02/08/2022 11/17/2022 meropenem 1 g 2,000 mg in 0.9% NaCl IV 0.9 % 100 mL 2,000 (two thousand) mg by Intravenous route every 8 hours for 5 days 0 11/17/2022 11/22/2022 omeprazole (PriLOSEC) 20 MG capsule Take 20 mg by mouth daily before breakfast triamcinolone acetonide (Kenalog) 0.1 % ointment Apply to affected area 2 times daily 11/17/2022 11/17/2022 triamcinolone acetonide (Kenalog) 0.1 % ointment Apply to affected area 2 times daily as needed 11/17/2022 12/26/2022 Vitamin D3, cholecalciferol, 50 MCG (1999 [place]) tablet Take 1 (one) tablet by mouth once daily 01/05/2023 warfarin (Coumadin) 5 MG tabletIndications:Em bolvalentina Take 1 (one) tablet by mouth once daily Please prescribe warfarin based on pharmacy orders and bridge with enoxaparin; INR goal 2-3 Reasons: Blood Vessel Obstruction by Foreign Substance or Clot 11/17/2022 01/09/2023 documented as of this encounter Plan of Treatment Not on file documented as of this encounter Procedures Procedure Name Priority Date/Time Associated Diagnosis Comments ECHO SARAH COMPLETE Routine 10/23/2022 9:0 7 AM CDT Right middle cerebral artery stroke (HCC) documented in this encounter Results * ECHO SARAH COMPLETE (10/23/2022 9:07 AM [...] contrast. The probe was inserted by the stylist apprentice. There was moderate probe insertion difficulty. Moderate sedation was given. Sedation was managed by the stylist apprentice. Lidocaine administered during the study. There were no complications during the procedure. Anesthesia provided by continuous infusion of dexmedetomidine and propofol, details in MAR. Emir Vail MD ECHO CUPID documented in this encounter Visit Diagnoses Not on filedocumented in this encounter Care Teams Supervisory Geographer Relationship Specialty Start Date End Date Jean Joy MD PCP - OBGYN 12/27/07 Yvan Booth MD [address] [place] [address] PCP - General 11/04/09 01/04/23 Jaden Thakur DO [address] [place] [id number] PCP - Attributed-[facility] EHP STL 09/10/19 06/28/23 documented as of this encounter
--- OUTSIDE RECORDS SUMMARY | 2024-03-19 20:44 | XMS_ITS | Encounter Summary ---
Author Organization [facility] Address [address] [facility] [place] [address] Care Team Providers Care Interior Design Assistant Name Role Phone Jean Joy MD Unavailable [phone] Yvan Booth MD Primary Care Provider [phone] Jaden Thakur DO Unavailable Reason for Visit * Auth/Cert (Routine) Specialty Diagnoses / Procedures Referred By Contac t Referred To Contact Referral ID Status Reason Start Date Expiration Date Visits Re quested Visits Authorized [id number] 1 1 Encounter Details Date Type Department Care Team (Late st Contact Info) Description 10/20/2022 6:12 PM CDT Anesthesia Event [facility] [address] [place] [id number] Lianet Diaz MD Relocated/no information available Anesthesia Record Procedure Summary Procedure Name Responsible Anesthesiologist Anesthesia Start Time Anesthesia Stop Time RIGHT DECOMPRESSIVE HEMICRANIECTOMY, POSS ICP MONITOR, POSS EVD (Right) Lianet Diaz MD 10/20/22 1812 10/20/228 Events Date Time Event Comment 10/20/2022 1729 1812 An Start 1812 Pt In Room 1812 An Start Data 1816 PT Reassessment 181 Induction 1819 An Intubation 182 Insert Art Line 1830 Anes Ready 1857 Time Out Anesthesia part icipated in timeout at the time documented in the record by nursing 1859 Proc Start 193 Quick Note PPV 9% 2032 Proc Stop 2039 An Emergence 2039 Extubation 2039 ANPTO2 2039 an stop data 2047 Pt out of Room 2117 An Stop Meds Name Total ceFAZolin 2,000 mg IVPB 2 g fentaNYL 100 mcg/2ml injection 100 mcg lidocaine PF 2% 100 mg propofol 200mg/20mL injection 200 mg propofol 200mg/20mL 81.01 mg rocuronium 50 mg/5 mL injection 120 mg phenylephrine 100 mcg/mL syringe 9.32 mg dexamethasone 10 mg/ml PF injection 10 m g esmolol 100 mg/10mL injection 20 mg hypertonic 3% NaCl infusion 250 mL calcium chloride 10% injection 1 g NS (0.9% NaCl) 800 mL NS (0.9% NaCl) 1,000 mL * Agents Name Insp. N2O Exp. Sevoflurane Exp. N2O O2 Flow - Auxiliary O2 Air Insp. Sevoflurane * Blood No blood administrations on file. Lines, Drains, and Airways Type Details Placement Removal Peripheral IV Date: 10/19/22; Time : 0752; Orientation: Left, Posterior 10/19/22 0752 by Bharat Oreilly RN 10/23/22 0600 by Shauna Martines RN Peripheral IV Date: 10/19/22; Time : 0815; Orientation: Right 10/19/22 0815 by Bharat Oreilly RN 10/23/22 0600 by Shauna Martines RN Puncture Site 10/19/22; 0854; Dr Walter; [...] RN 11/06/22 1328 by Zeinab Vargas RN Gastric Tube 10/20/22; 1157; Mitchell Flores RN; NGT; Nostril/Nare, Right; 65; 16; Well; 10/23/22; 09; Cardiology MD; Other (Comments) (per MD for SARAH) 10/20/22 1157 by Jackelyn Flores RN 10/23/22 09 by Jackelyn Flores RN ETT Date: 10/20/22; Time : 1819; Placed By: Mac Chandra Asst; Vent: easy mask; Induction: Standard IV; Blade Type: Video; Blade Size: 3; Laryngoscopy View: Grade 1 (full cords); Tube: Endotracheal Tube; Placement: Oral; Tube Type: Cuffed-inflated; Tube Size(mm): 7 MM; Depth of Insertion: 20 CM; Measured From: lips; Attempts: 1; Cuff Infated: Air; Verified By: Direct visualization, Bilateral breath sounds, Chest Auscultation, CO2 Monitor 10/20/22 1819 by Sue Conrad, 10/24/22 1410 by Jackelyn Flores RN Urethral Catheter 10/20/22; 1837; Non-latex; No; 16; 10 mL; 1; General Anesthesia; 10/21/22; 0600; Per order; AMBROSE Villatoro 10/20/22 1837 by Germaine Loja RN 10/21/22 0600 by Jackelyn Flores RN Drain 10/20/22; 1942; 1; Flat; 10; Anterior, Left, Upper; Head; 10/23/22; 1340; Per order; Isak Scott APRN 10/20/22 1942 by Germaine Loja RN 10/23/22 1340 by Jackelyn Flores RN Procedural Site (Incision) 10/20/22; 2115; Right; Head; Bacitracin ointment. carla 4x4, telfa,mediport [...] Date Recorded PHQ2 TOTAL SCORE 0 02/08/2022 [facility] - Occupational Stress [...] as of this encounter Progress Notes * Juan Franz MD - 10/23/2022 9:31 AM CDT ANESTHESIA POSTOP EVALUATION NOTE Procedure: RIGHT DECOMPRESSIVE HEMICRANIECTOMY, POSS ICP MONITOR, POSS EVD (Right) Consuelo Darby is a 41 year old female Patient Vitals for the past 6 hrs: BP Temp Pulse Resp SpO2 Pain Rating Score #1 Pain Scale/Observation 10/23/22 0400 138/72 98.9 ??F (37.2 ??C) 91 20 99 % 0 CPOT 10/23/22 0414 -- -- 97 -- 98 % -- -- 10/23/22 0500 150/78 -- 109 13 99 % -- -- 10/23/22 0600 136/75 98.4 ??F (36.9 ??C) 100 22 98 % 0 CPOT 10/23/22 0700 146/79 -- 93 20 98 % -- -- 10/23/22 0715 146/72 -- 93 19 98 % -- -- 10/23/22 0730 144/70 -- 92 20 98 % -- -- 10/23/22 0745 142/78 -- 96 20 98 % -- -- 10/23/22 0800 159/75 98.2 ??F (36.8 ??C) (!) 135 29 91 % -- CPOT 10/23/22 0815 130/68 -- 102 21 98 % -- -- 10/23/22 0829 -- -- 103 -- 98 % -- -- 10/23/22 0830 133/73 -- 102 20 98 % -- -- 08/14/23 0845 136/69 -- 104 21 98 % -- -- 10/23/22 0900 130/63 -- 96 16 98 % -- -- 10/23/22 0915 (!) 151/116 -- (!) 142 28 97 % -- -- Anesthesia Type: general ETT Pre-op Diagnosis Codes: * Cerebrovascular accident (CVA), unspecified mechanism (CMS/HCC) [I63.9] Mental Status: unresponsive and neurologic status has returned to expected level of consciousness Neuro Status: other - please comment (unable to assess) Respiratory Function: mechanical ventilation and supported Cardiac Function: stable Postop Pain: no pain Postop Hydration: requires support Postop Nausea: none Assessment: no apparent anesthetic complications, patient tolerated procedure well and no evidence of recall Patient Disposition: Release from Anesthesia Care NOTABLE EVENTS: No notable events documented. * Lianet Diaz MD - 10/20/2022 9:19 PM CDT ANESTHESIA POSTOP EVALUATION NOTE Procedure: RIGHT DECOMPRESSIVE HEMICRANIECTOMY, POSS ICP MONITOR, POSS EVD (Right) Consuelo Darby is a 41 year old female Patient Vitals for the past 6 hrs: BP Temp Pulse Resp SpO2 Pain Scale/Observation 10/20/22 1530 128/76 -- (!) 115 (!) 8 97 % -- 10/20/22 1545 125/76 -- 105 15 95 % -- 10/20/22 1600 127/69 99.3 ??F (37.4 ??C) 105 11 98 % B 10/20/22 1615 116/68 -- (!) 110 20 98 % -- 10/20/22 1630 117/79 -- (!) 112 (!) 42 97 % -- 10/20/22 1645 130/70 -- 106 24 96 % -- 10/20/22 1700 122/76 -- (!) 117 15 97 % -- 10/20/22 1715 126/70 -- 101 19 94 % -- 10/20/22 1730 130/88 -- 98 18 96 % -- 10/20/22 1745 137/75 99.1 ??F (37.3 ??C) 109 14 97 % -- 10/20/22 1750 126/70 -- (!) 118 12 97 % -- 10/20/22 1755 115/65 -- 101 14 96 % -- 10/20/22 1800 116/60 -- (!) 110 20 96 % -- 10/20/22 1804 -- -- -- 12 -- -- 10/20/22 1805 108/67 -- 101 13 96 % -- 10/20/22 1810 109/64 99 ??F (37.2 ??C) 102 21 96 % -- Anesthesia Type: general ETT Pre-op Diagnosis Codes: * Cerebrovascular accident (CVA), unspecified mechanism (CMS/HCC) [I63.9] Mental Status: sedated (intubated and sedated) Respiratory Function: supported, mechanical ventilation and requires O2 Cardiac Function: unstable/require support Assessment: no apparent anesthetic complications NOTABLE EVENTS: No notable events documented. * Lianet Diaz MD - 10/20/2022 5:18 PM CDT ANESTHESIA PREOPERATIVE EVALUATION NOTE Procedure: level 2 Vitals: Patient Vitals for the past 6 hrs: BP Temp Pulse Resp SpO2 10/20/22 1645 130/70 -- 106 24 96 % 10/20/22 1630 117/79 -- (!) 112 (!) 42 97 % 10/20/22 1615 116/68 -- (!) 110 20 98 % 10/20/22 1600 127/69 99.3 ??F (37.4 ??C) 105 11 98 % 10/20/22 1545 125/76 -- 105 15 95 % 10/20/22 1530 128/76 -- (!) 115 (!) 8 97 % 10/20/22 1515 -- -- (!) 131 27 96 % 10/20/22 1500 145/82 -- (!) 111 20 95 % 10/20/22 1445 139/75 -- (!) 124 20 96 % 10/20/22 1430 144/75 -- (!) 123 21 97 % 10/20/22 1415 141/81 -- (!) 125 12 98 % 10/20/22 1400 132/69 -- 103 18 98 % 10/20/22 1345 136/79 -- (!) 113 20 96 % 10/20/22 1330 140/74 -- (!) 113 19 96 % 10/20/22 1315 135/76 -- (!) 113 22 98 % 10/20/22 1300 133/77 -- (!) 120 21 98 % 10/20/22 1245 137/73 -- (!) 115 22 97 % 10/20/22 1230 137/84 -- (!) 114 19 96 % 10/20/22 1215 135/76 -- (!) 116 20 97 % 10/20/22 1200 141/78 99.1 ??F (37.3 ??C) (!) 133 16 97 % 10/20/22 1145 132/71 -- (!) 122 20 95 % 10/20/22 1130 -- -- (!) 112 20 97 % LMP: Patient's last menstrual period was 02/01/2022 (approximate). OB Status: Continuous Control ANESTHESIA PRE-EVALUATION NOTE History of Present Illness: 41yo M who developed acute onset L sided weakness, L-sided sensory deficits, and dysarthria. L sided weakness resolved in route and dysarthria improved in route. On arrival patient noted to L gaze plasy, L hemainopsia, mild dysarthria, and extinction. NIHSS: 7. Patient was given TNK and code IVR was activated.??TICI2b revascularization of the R MCA M1 occlusion. To OR as level 2 for decompressivecraniotomy ?? Physical Exam: No Orientation X3 (pt is aphasic) Review of Systems: GERD: Yes ANESTHESIA PLAN ASA Score: 3 E NPO Status: No solids since midnight Anesthesia Plan: general ETT Planned Induction: intravenous Planned Adjuncts: art line Planned Postop Destination: ICU ICU Plans: hemodynamic monitoring and ventilation (Per surgery, pt aphasic and doesnot follow commands) The patient's procedural Anesthetic Plan was discussed with the PILE DRIVING SETTER, resident, technical assistant and attending. BMI, Height, Weight Tobacco History Estimated body [...] Facility-Administered Medications Medication Dose Last Admin ??? *Hold/Avoid Medication ??? *Hold/Avoid Medication ??? 0.9% NaCl 3 mL 3 mL at 10/20/22 1436 And ??? 0.9% NaCl 1-10 mL ??? 0.9% NaCl 3 mL 3 mL at 10/20/22 1436 And ??? 0.9% NaCl 3 mL ??? acetaminophen 1,000 mg ??? amitriptyline 100 mg ??? enoxaparin 40 mg 40 mg at 10/20/22 1222 ??? iopamidol 100 mL at 10/19/22 0806 ??? lansoprazole 30 mg 30 mg at 10/20/22 1504 ??? [START ON 10/21/2022] loratadine 10 mg ??? metoprolol tartrate IR 25 mg 25 mg at 10/20/22 1504 ??? polyethylene glycol 3350 17 g ??? senna-docusate 1 tablet ??? tamsulosin 0.4 mg 0.4 mg at 10/20/22 1504 ??? verapamil 40 mg 40 mg at 10/20/22 1654 ??? [START ON 10/21/2022] Vitamin D3 (cholecalciferol) 2,000 Units Allergies: Allergies Allergen Reactions ??? [...] ??? Hypertension 10/19/2022 Priority: Not Prioritized ??? 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 Status: Patient's last menstrual period was 02/01/2022 [...] 1410 HCGURINE Negative Recent Labs Base Name 10/20/22 1132 [id number] 124* SPECIMENTYPE Cap Fingerstick Recent Labs Component Name 10/20/22 1640 10/20/22 0302 WBC - 19.5* RBC - 3.83 HCT 36.6 35.4 HGB 12.0 11.9* PLTCOUNT - 292 MCV - 92.4 MCH - 31.1 MCHC - 33.6 MPV - 9.9 Recent Labs Component Name 10/20/22 0400 10/19/22 0824 ABORH B POS B POS ABSCG - NEG Recent Labs Component Name 10/20/22 0302 POTASSIUM 3.6 CALCIUM 8.2* CO2 21* GLUCOSE 140* BUN 6* CREATININE 0.50* Recent Labs Component Name 10/20/22 0302 PTT 24.4 PT 13.6 INR 1.1 No results found for requested labs within last 120 days. Recent Labs Result Component Current Result Alkaline Phosphatase 52 (10/19/2022) ALT 16 (10/19/2022) Anion Gap 13 (10/20/2022) AST 19 (10/19/2022) eGFR by CKD-EPI >90 (10/20/2022) documented in this encounter Procedure Notes * Sue Conrad DO - 10/20/2022 6:58 PM CDTAssociated Order(s): Arterial Line Placement Arterial Line Placement Procedure Note Patient Location: OR. Procedure: Arterial Line ([id number]). Procedure Section Indications: continuous blood pressure monitoring. Consent: informed [...] Time: 10/20/2022 6:26 PM. Local Anesthetic Used? No Staff Section Anesthesia Provider: Valdez Patiño Anes Asst, Performed the procedure * Sue Conrad DO - 10/20/2022 6:52 PM CDTAssociated Order(s): ETT Placement Endotracheal Tube Placement: Patient Location: OR. Intubation Event Date/Time: 10/20/2022 6:19 PM Procedure: intubation ([id number]). Procedure Section: Sedation: under general anesthesia. Indications for Airway Management: anesthesia Induction: standard IV Patient Position: sniffing Mask [...] Yes Difficult Airway? No. Procedure Start Time: 10/20/2022 6:19 PM. Staff Section Anesthesia Provider: Valdez Patiño Anes Assyohana, Performed the procedure documented in this encounter Miscellaneous Notes * Anesthesia Transfer of Care - Sathya Paris MD - 10/20/2022 9:19 PM CDT ANESTHESIA TRANSFER OF CARE NOTE Today's Date: 10/20/2022 Date of : 1980 Patient: Consuelo Darby Procedure(s): RIGHT DECOMPRESSIVE HEMICRANIECTOMY, POSS ICP MONITOR, POSS EVD Surgeon(s): Primary: Jazz Martin MD Resident - Assisting: Kamari Mcfarlane MD Preop Diagnosis: Pre-op Diagnois: * Cerebrovascular accident (CVA), unspecified mechanism (CMS/HCC) [I63.9] Pre-op Meds (From admission, onward) Start Stop Status Route Frequency Ordered 10/19/22 0820 *Hold/Avoid Medication -- Verified OTHER DIRECTED 10/19/22 0821 10/19/22 0830 *Hold/Avoid Medication -- Verified OTHER EVERY 12 HOURS (08 and 20) 10/19/22 0821 10/19/22 0900 0.9% NaCl infusion 10/20/22 1200 Dispensed IV CONTINUOUS 10/19/22 0821 10/19/22 0755 0.9% NaCl injection 1-10 mL [...] Report. -- Dispensed IK PRN 10/19/22 0821 10/20/22 0415 acetaminophen (Ofirmev) injection 1,000 mg 10/20/22 0502 Completed IV ONCE 10/20/22 0359 10/20/22 1215 acetaminophen (Ofirmev) injection 1,000 mg 10/20/22 1237 Completed IV ONCE 10/20/22 1151 10/20/22 1730 acetaminophen (Ofirmev) injection 1,000 mg 10/21/22 0529 Verified IV ONCE 10/20/22 1706 10/20/22 2100 amitriptyline (Elavil) tablet 100 mg Note to Pharmacy: OP sig: Take 2 (two) tablets by mouth at bedtime -- Verified Enteral Tube AT BEDTIME 10/20/22 1029 10/20/22 1015 enoxaparin (Lovenox) injection 40 mg -- Dispensed SC DAILY 10/20/22 0931 10/19/22 0805 iopamidol (Isovue 370) 76 % contrast 10/21/22 0804 Dispensed IV CONTRAST ONCE 10/19/22 0805 10/20/22 1045 lansoprazole (Prevacid) suspension 30 mg -- Dispensed Enteral Tube DAILY BEFORE BREAKFAST 10/20/22 1032 10/20/22 194 lidocaine 1% (Xylocaine) - EPINEPHrine 1:100,000 injection -- Sent PRN 10/20/22 1947 10/21/22 0900 loratadine (Claritin) tablet 10 mg -- Verified Enteral Tube DAILY 10/20/22 1029 10/20/22 1200 metoprolol tartrate IR (Lopressor) tablet 25 mg Note to Pharmacy: OP sig: Take 1 (one) tablet by mouth 2 times daily -- Dispensed Enteral Tube 2 TIMES DAILY 10/20/22 1150 10/20/22 1730 polyethylene glycol 3350 (Miralax) packet 17 g -- Verified Enteral Tube DAILY 10/20/22 1652 10/20/22 1730 senna-docusate (Senokot-S) tablet 1 tablet -- Verified Enteral Tube DAILY 10/20/22 16510/20/22 0945 tamsulosin (Flomax) capsule 0.4 mg -- Dispensed PO DAILY 10/20/22 0914 10/20/221947 thrombin (Thrombogen; Thrombostat) kit -- Sent PRN 10/20/22194710/20/221948 thrombin (Thrombogen; Thrombostat) vial -- Sent PRN 10/20/22200110/20/22 151 verapamil (Isoptin) tablet 40 mg -- Dispensed Enteral Tube EVERY 8 HOURS 10/20/22 15110/21/22 0900 vitamin D3 (Cholecalciferol) 25 MCG (1000 UNITS) tablet 2,000 Units Note to Pharmacy: OP sig: Take 2,000 Units by mouth once daily -- Verified Enteral Tube DAILY 10/20/22 1029 Post-op Diagnosis: * Cerebrovascular accident (CVA), unspecified mechanism (CMS/HCC) [I63.9] . Allergies Allergen Reactions ??? 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 Lines, Drains, and Airways Type Details Placement Removal Peripheral IV Date: 10/19/22; Time: 751; Orientation: Left, Posterior; Location: Hand; Gauge: 18 Gauge 10/19/22 075 by Bharat Oreilly RN Peripheral IV Date: 10/19/22; Time: 08; Orientation: Right; Location: Antecubital; Gauge: 18 Gauge 10/19/22 0815 by Bharat Oreilly RN Gastric Tube 10/20/22; 1157; Mitchell Flores RN; NGT; Nostril/Nare, Right; 65; 16; Well 10/20/22 1157 by Jackelyn Flores RN ETT Date: 10/20/22; Time: 1818; Placed By: Mac Chandra Asst; Vent: easy mask; Induction: Standard IV; Blade Type: Video; Blade Size: 3; Laryngoscopy View: Grade 1 (full cords); Tube: Endotracheal Tube; Placement: Oral; Tube Type: Cuffed-inflated; Tube Size(mm): 7 MM; Depth of Insertion: 20 CM; Measured From: lips; Attempts: 1; Cuff Infated: Air; Verified By: Direct visualization, Bilateral breath sounds, Chest Auscultation, CO2 Monitor 10/20/221818 by Sue Conrad DO 10/20/222039by Albina Iniguez MD Intraprocedure I/O Totals Intake NS (0.9% NaCl) 1800.00 mL phenylephrine 100 mcg/mL syringe 28.73 mL Total Intake 1828.73 mL Output Urine 700 mL Total Output 700 mL Net Net Volume 1128.73 mL Patient Transfer Location: ICU Transport Airway: intubation and ventilatory assistance with bag valve mask Transport Monitoring: heart rate, continuous pulse oximetry, frequent blood pressure checks and insurance examiner Complications: None Handoff Given? Yes Sathya Paris MD documented in this encounter Plan of Treatment Not on file documented as of this encounter Procedures Procedure Name Priority Date/Time Associated Diagnosis Comments ARTERIAL LINE NOTE Routine 10/20/2022 6: 58 PM CDT ENDOTRACHEAL TUBE NOTE Routine 10/20/2022 6:52 PM CDT documented in this encounter Results * ARTERIAL LINE PERFORMABLE (10/20/2022 6:58 PM CDT) Narrative Sue Conrad DO - 10/20/2022 6:58 PM CDT Sue Conrad DO ? 10/20/2022 ??6:59 PM Arterial Line Placement Procedure Note Patient Location: OR. Procedure: Arterial Line ([id number]). Procedure Section ?? Indications: continuous blood pressure [...] Patiño Anes Asst, Performed the procedure Lianet Daiz MD GENERAL ANESTHESIA O DIONI * ETT LINE PERFORMABLE (10/20/2022 6:52 PM CDT) Narrative Sue Conrad DO - 10/20/2022 6:52 PM CDT Sue Conrad, DO ? 10/20/2022 ??6:53 PM Endotracheal Tube Placement: ? Patient Location: OR. Intubation Event Date/Time: ??10/20/2022 6:19 PM Procedure: intubation ([id number]). Procedure Section: ?? Sedation: under general anesthesia. [...] procedure Lianet Diaz MD GENERAL ANESTHESIA O DIONI documented in this encounter Visit Diagnoses Not on filedocumented in this encounter Administered Medications Inactive Administered Medications - up to 3 most recent administrations Medication Order MAR Action Action Date Dose Rate Site 0.9% NaCl infusion Intravenous, CONTINUOUS PRN, Starting on Sun10/20/22 at 1807, Until Sun10/20/22 at 2118, Anesthesia Intra-op $ New Bag/Syringe 10/20/2022 6:07 PM CDT 0.9% NaCl infusion Intravenous, CONTINUOUS PRN, Starting on Sun10/20/22 at 1919, Until Sun10/20/22 at 2117, Anesthesia Intra-op $ New Bag/Syringe 10/20/2022 7:19 PM CDT calcium chloride 10 % injection Intravenous, PRN, Starting on Sun10/20/22 at 1939, Until Sun10/20/22 at 2117, Anesthesia Intra-op $ Given 10/20/2022 7:39 PM CDT 1 g ceFAZolin (Ancef) 2,000 mg in 50 mL IVPB Intravenous, PRN, Starting on Sun10/20/22 at 1850, Until Sun10/20/22 at 2117, Anesthesia Intra-op $ Given 10/20/2022 6:50 PM CDT 2 g dexAMETHasone Sod Phosphate PF injection Intravenous, PRN, Starting on Sun10/20/22 at 1925, Until Sun10/20/22 at 2117, Anesthesia Intra-op $ Given 10/20/2022 7:25 PM CDT 10 mg esmolol (Brevibloc) injection Intravenous, PRN, Starting on Sun10/20/22 at 1838, Until Sun10/20/22 at 2117, Anesthesia Intra-op $ Given 10/20/2022 6:38 PM CDT 20 mg fentaNYL (PF) (Sublimaze) injection Intravenous, PRN, Starting on Sun10/20/22 at 1856, Until Sun10/20/22 at 2117, Anesthesia Intra-op $ Given 10/20/2022 8:06 PM CDT 50 mcg $ Given 10/20/2022 6:56 PM CDT 50 mcg hypertonic 3% NaCl infusion Intravenous, PRN, Starting on Sun10/20/22 at 1916, Until Sun10/20/22 at 2117, Anesthesia Intra-op $ Given 10/20/2022 7:16 PM CDT 250 mL lidocaine HCl (PF) (Xylocaine MPF) 2 % injection Intravenous, PRN, Starting on Sun10/20/22 at 1816, Until Sun10/20/22 at 2117, Anesthesia Intra-op $ Given 10/20/2022 6:16 PM CDT 100 mg phenylephrine 100 mcg/mL injection Intravenous, PRN, Starting on Sun10/20/22 at 1900, Until Sun10/20/22 at 2117, Anesthesia Intra-op Rate Change 10/20/2022 8:57 PM CDT 1.5 mcg/kg/min 85.77 mL/hr Rate Change 10/20/2022 8:47 PM CDT 1 mcg/kg/min 57.18 mL/h r Rate Change 10/20/2022 8:17 PM CDT 0.7 mcg/kg/min 40.026 m L/hr propofol (Diprivan) injection Intravenous, PRN, Starting on Sun10/20/22 at 1816, Until Sun10/20/22 at 2117, Anesthesia Intra-op $ Given 10/20/2022 8:06 PM CDT 20 mg $ Given 10/20/2022 8:00 PM CDT 20 mg $ Given 10/20/2022 6:56 PM CDT 40 mg propofol (Diprivan) injection Intravenous (Continuous Infusion), CONTINUOUS PRN, Starting on Sun10/20/22 at 2044, Until Sun10/20/22 at 2117, Anesthesia Intra-op $ New Bag/Syringe 10/20/2022 8:44 PM CDT 25 mcg/kg/min 14.295 mL/hr rocuronium (Zemuron) injection Intravenous, PRN, Starting on Sun10/20/22 at 1816, Until Sun10/20/22 at 2117, Anesthesia Intra-op $ Given 10/20/2022 8:29 PM CDT 20 mg $ Given 10/20/2022 7:50 PM CDT 20 mg $ Given 10/20/2022 7:12 PM CDT 30 mg documented in this encounter Care Teams Interior Design Assistant Relationship Specialty Start Date End Date Jean Joy MD PCP - OBGYN 12/27/07 Yvan Booth MD [address] [place] [id number] PCP - General 11/04/09 01/04/23 Jaden Thakur DO [facility][note 3][address] [place] [address] PCP - Attributed-[facility] 09/10/19 06/28/23 documented as of this encounter
--- OUTSIDE RECORDS SUMMARY | 2024-03-19 20:44 | XMS_ITS | Encounter Summary ---
Author Organization [facility] Address [address] [facility] [place] [address] Care Team Providers Care Motion Picture Camera Operator Name Role Phone Jean Joy MD Unavailable [phone] Yvan Booth MD Primary Care Provider [phone] Jaden Thakur DO Unavailable [phone] Reason for Visit * Auth/Cert (Routine) Specialty Diagnoses / Procedures Referred By Contac t Referred To Contact Referral ID Status Reason Start Date Expiration Date Visits Re quested Visits Authorized [id number] 1 1 Encounter Details Date Type Department Care Team (Late st Contact Info) Description 10/30/2022 10:15 AM CDT Anesthesia Event [facility] [address] [place] [id number] Manuel Ramirez MD [address] [place] [address] [place] [address] Heena Ackerman Anes Asst [address] [place] [address] Anesthesia Record Procedure Summary Procedure Name Responsible Anesthesiologist Anesthesia Start Time Anesthesia Stop Time RIGHT ILEO femoral thrombectomy VIA CUTDOWN. REPAIR OF FEMORAL ARTERY WITH PATCH. ANGIOGRAM (Right: Groin) Manuel Ramirez MD 10/30/22 1015 10/30/22 1451 Events Date Time Event Comment 10/30/2022 0943 1008 Quick Note LIS Cramer ready to bring patient to [facility] 2 OR. Performed interview with patient and report from PACU holding nurse. Waiting for graphics coordinator to transfer to OR. 1015 An Start 1020 Pt In Room 1021 An Start Data 1027 PT Reassessment 1039 Quick Note Existing NG -pl aced to suction befor induction. 1041 Induction 1044 An Intubation 1101 Insert Art Line Bilateral ra dial arteries attempted (under US guidance) with no success. Left brachial artery access gained with US guidance. 1106 Handoff 1114 Insert Art Line 1115 Anes Ready 1130 Time Out Anesthesia part icipated in timeout at the time documented in the record by nursing 1131 Proc Start 1207 Quick Note ACT 121 1214 Quick Note ACT 223 1225 Quick Note ACT 260 1332 Quick Note ACT 171 1348 Quick Note ACT 287 1417 Proc Stop 1423 An Emergence 1427 Extubation 1431 ANPTO2 1431 an stop data 1431 Pt out of Room 1451 An Stop Meds Name Total midazolam 2 mg/2mL injection 2 mg fentaNYL 100 mcg/2ml injection 100 mcg lidocaine PF 2% 60 mg propofol 200mg/20mL injection 170 mg rocuronium 50 mg/5 mL injection 120 mg phenylephrine 100 mcg/mL syringe 500 mcg ondansetron 4mg/2mL injection 4 mg sugammadex 200 mg/2mL injection 200 mg vancomycin (Vancocin) 1,750 mg in 535 mL IVPB 1,750 mg HYDROmorphone (Dilaudid) 2 mg/ml injecti on 1.6 mg heparin 100 units/mL in dextrose 5 % inf usion Cannot be calculated heparin 1000 units/ml injection 17,000 U nits calcium chloride 10% injection 1 g Isolyte-S infusion 800 mL Isolyte-S infusion 400 mL NS (0.9% NaCl) 150 mL * Agents Name Insp. N2O Exp. Sevoflurane Exp. N2O O2 Air Insp. Sevoflurane * Blood Name Total RBC UNIT 700 mL Lines, Drains, and Airways Type Details Placement Removal Puncture Site 10/19/22; 0854; Dr Walter; Right; [...] Zeinab Vargas RN Procedural Site (Incision) 10/20/22; 2115; Right; Head; Bacitracin ointment. carla 4x4, telfa,mediport tape ; 11/17/22; 215410/20/222115 by Germaine Loja RN 11/17/222154 by Generic, Auto Release Urethral Catheter 10/26/22; 1000; Luis Angel Parks RN; Straight-tip; No; 16; 10 mL; Yes, Seal Intact; 1; Well; 11/05/22; Per protocol; elizabeth lizama RN 10/26/22 1000 by Pardeep Parks RN 11/05/22 0000 by Vanessa Saldivar, RN Peripheral IV Date: 10/27/22; Time : 0458; Orientation: Left; Tolerance: Well 10/27/22 0458 by Adry Roper RN 11/01/22 1000 by Dixie Laws RN Gastric Tube 10/28/22; 2300; NGT; Nostril/Nare, Left; 11/01/22; 1900; (Not present on assessment); Other (Comments) 10/28/22 2300 by Karina Cottrell RN 11/01/22 1900 by Jessica Enriquez, AMBROSE Peripheral IV Date: 10/30/22; Time : 0238; Orientation: Anterior, Right; Placed By: AMBROSE Sandoval 10/30/22 0238 by Karina Cottrell RN 10/30/22 1900 by Ascencion Wade RN ETT Date: 10/30/22; Time : 1044; Placed By: Sandra Zavala APRN-ANGIOGRAPHY TECHNOLOGIST; Vent: easy mask; Induction: Standard IV; Blade Type: Milana; Blade Size: 3; Laryngoscopy View: Grade 1 (full cords); Intubation Adjuncts: Stylet; Tube: Endotracheal Tube; Placement: Oral; Tube Type: Cuffed-inflated; Tube Size(mm): 7 MM; Depth of Insertion: 21 CM; Measured From: teeth; Attempts: 1; Cuff Infated: Air; Cuff Vol(mL): 6 mL; Verified By: Direct visualization, Bilateral breath sounds, Chest Auscultation, CO2 Monitor, CO2 Detector 10/30/22 1044 by Sandra Zavala APRN-CRNA 10/30/22 1427 by Sandra Zavala APRN-CRNA Arterial Line Date: 10/30/22; Time : 1114; Placed By: Manuel Ramirez MD; Location: radial; Orientation: Left; Gauge: 20; Line Secured: Taped; Tolerance: Well 10/30/22 1114 by Sandra Zavala APRN-CRNA 11/01/22 1000 by Pati Weaver RN Procedural Site (Incision) 10/30/22; 1439; Right; Groin; CLOSURE, RIGHT GROIN SUTURED.EXOFIN SKIN GLUE; 11/17/22; 215410/30/22 1439 by Alfreda Richards RN 11/17/222154 by Elicia, Auto Release documented in this [...] Date Recorded Patient Health Questionnaire-2 Score 0 2022 [place] [employer] - Occupational Stress [...] of this encounter Progress Notes * Trevor Gupta DO - 10/31/2022 8:10 AM CDT ANESTHESIA POSTOP EVALUATION NOTE Procedure: RIGHT ILEO femoral thrombectomy VIA CUTDOWN. REPAIR OF FEMORAL ARTERY WITH PATCH. ANGIOGRAM (Right: Groin) Consuelo Darby is a 41 year old female Patient Vitals for the past 6 hrs: BP Temp Pulse Resp SpO2 Pain Rating Score #1 Pain Scale/Observation 10/31/22 0300 -- -- 87 23 96 % -- -- 10/31/22 0400 -- 98.6 ??F (37 ??C) 82 20 97 % 0 CPOT 10/31/22 0500 -- -- 83 20 98 % -- -- 10/31/22 0600 -- -- 96 18 96 % 0 CPOT 10/31/22 0608 -- -- -- -- -- 5 -- 10/31/22 0700 -- -- 73 21 97 % -- -- 10/31/22 0800 135/72 98.2 ??F (36.8 ??C) 75 19 95 % 0 CPOT Anesthesia Type: general ETT Pre-op Diagnosis Codes: * Ischemia [I99.8] Mental Status: awake, alert and oriented Neuro Status: No numbness, tingling or visual disturbances Respiratory Function: natural Cardiac Function: stable Postop Pain: acceptable to the patient Postop Hydration: adequate Postop Nausea: none Assessment: no apparent anesthetic complications, patient tolerated procedure well and no evidence of recall Patient Disposition: Release from Anesthesia Care Additional Comments: Aphasic at baseline. Family present at bedside as well as patients nurse. Bothconfirm she is at her baseline mental status. No apparent issues related to anesthesia post operatively NOTABLE EVENTS: No notable events documented. Associated attestation - Manuel Ramirez MD - 11/06/2022 6:34 PM CDT Patient seen and evaluated by resident. Manuel Ramirez MD * Manuel Ramirez MD - 10/30/2022 4:16 PM CDT ANESTHESIA POSTOP EVALUATION NOTE Procedure: RIGHT ILEO femoral thrombectomy VIA CUTDOWN. REPAIR OF FEMORAL ARTERY WITH PATCH. ANGIOGRAM (Right: Groin) Consuelo Darby is a 41 year old female Patient Vitals for the past 6 hrs: BP Temp Pulse Resp SpO2 Pain Scale/Observation 10/30/22 1435 140/82 98.6 ??F (37 ??C) 96 15 100 % -- 10/30/22 1439 140/82 -- 95 10 100 % -- 10/30/22 1440 -- -- 95 13 100 % N;B 10/30/22 1445 -- -- 94 14 100 % -- 10/30/22 1500 -- -- 99 13 100 % -- 10/30/22 1510 -- -- 101 15 93 % -- 10/30/22 1520 -- -- 99 15 92 % -- 10/30/22 1535 147/90 -- 100 14 98 % -- 10/30/22 1600 -- -- 100 15 98 % -- Anesthesia Type: general ETT Pre-op Diagnosis Codes: * Ischemia [I99.8] Mental Status: awake and neurologic status has returned to preoperative level Respiratory Function: natural Cardiac Function: stable Postop Pain: adequate Postop Hydration: adequate Postop Nausea: none Assessment: no apparent anesthetic complications and patient tolerated procedure well Patient Disposition: Follow Up Needed NOTABLE EVENTS: No notable events documented. * Manuel Ramirez MD - 10/29/2022 8:45 PM CDT ANESTHESIA PREOPERATIVE EVALUATION NOTE Procedure: right femoral cutdown, thrombectomy (Right) angiogram with possible intervention, possible vein harvest (Right) Vitals: Patient Vitals for the past 6 hrs: BP Temp Pulse Resp SpO2 Pain Rating Score #1 10/29/22 2112 -- -- -- -- -- 5 10/29/22 1900 128/84 -- 100 20 98 % -- 10/29/22 1800 133/75 98.7 ??F (37.1 ??C) 85 20 98 % 0 10/29/22 1712 -- -- -- -- -- 4 10/29/22 1700 134/76 -- 101 23 97 % -- 10/29/22 1600 128/75 98.4 ??F (36.9 ??C) 105 19 97 % 0 LMP: Patient's last menstrual period was 02/01/2022 (approximate). OB Status: Continuous Control ANESTHESIA PRE-EVALUATION NOTE History of Present Illness: Patient is a 41 year old female with PMH of HTN, GERD, GENESIS who developed acute L-sided sensory and motor deficits, dysarthria, L gaze palsy, L hemianopsia. Code IVR was activated and underwent [id number] of R MCA M1 occlusion on 10/19/2022. Underwent R decompressive hemicraniectomy on 10/20/2022. 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 Pt is on a heparin gtt with plans to continue until patient is transported to pre op area per vascular surgery. Previous Airway Management: ETT Placed: ETT Size: 7 Blade Type: Video Blade Size: 3 GradeGrade: 1 Mask Airway: Easy Current non-smoker: unknown. The patient was not instructed to abstain [...] Unable to open mouth for airway exam. Review of Systems: History of anesthetic complications: No Malignant Hyperthermia: No GERD: Yes Recent Chest Pain: No Shortness of [...] right lateral ventricle, and approximately 3-4 mm [id number] midline shift, grossly similar to the prior. [...] Normal IVC and visualized portion of aorta. PAT evaluation start: (INSERT IN SIDE-BAR IMMEDIATELY AFTER DIAGNOSTIC TESTS. (F2 left / right click to select options below. CTRL-Z to undo) - if BP is poorly controlled (eg SBP >180 or DBP >110) then contact Dr. Pitt or FARHAD This evaluation was based on in patient visit I. Perioperative Cardiac Risk Index Stratification based on 2014 ACC/AHA Guidelines for patients undergoing noncardiac surgery Perioperative risk of a Major Adverse Cardiac Event (MACE) during hospitalization. Add one point (0-6) for each positive RCRI (Revised Cardiac Risk Indicator) 1. Is the surgery high-risk? NO and YES -Major open suprainguinal vascular 2. History of ischemic heart disease? NO If yes then paste summary of most recent cath / stress tests under Other Additional Findings/Comments section above: 3. History of CHF? no If yes then paste summary of most recent TTE / SARAH under Other Additional Findings/Comments sectionabove: New Murmur? no if yes and without recent echocardiogram then may need TTE contact Dr. Pitt or FARHAD 4. History of cerebrovascular disease? Prior TIA or stroke yes If yes then paste summary of most any relevant neurovascular imaging or carotid duplex results under Other Additional Findings/Comments section above: Carotid bruit ? no if yes and symptomatic then may need carotid duplex - contact Dr. Pitt or AIC 5. Insulin-dependent Diabetes? NO A1c: Recent Labs Component Name 10/20/22 1015 HGBA1C 6.0* EAG 126 6. Preoperative creatinine > 2 mg/dl? no Baseline Cr? 0.54 Total RCRI / MACE score 2 Points >= 6.6% If MACE < 1%, no further testing [...] further workup may beindicated. II. Consults: NO Copy and paste relevant results. Follow up N/A III. CIEDs Does patient have a CIED (cardiovascular implantable electronic device eg: PM, AICD)? no If yes then copy and paste interrogation report here. Timing of interrogation should be within 1 year for PM and Within 6 months for AICD [employer] Information needed (tool builder, mode, indication for CIED, battery life, magnet function): If Biotronik device AND PM dependent AND surgical site above umbilicus then call local office at [phone] to schedule reprogramming of CIED (into asynchronous mode for PM and or turn off AICD if magnet mode not option) and write plan here. Please also call Dr Pitt or AIC. IV. Anticoagulants Is patient receiving chronic antiplatelet/ anticoagulant medications? What is periop plan ? YES - plan is to hold heparin gtt when patient transports to pre-op area (patients with mechanical heart valves OR atrial fib on coumadin with a CHADS- VASc > 7 OR recentVTE within 3 months may need bridging) Follow up N/A V. Previous blood transfusion? unknown If yes AND EBL > 250ml then patient needs a recent T&S. Order T&S if none recently. If this is a phone review then patient needs to come in PRIOR to DOS for a T&S (call Dr Pitt or FARHAD) to arrange. Order a 2nd T&S (re-type) for DOS If no previous blood product transfusion AND EBL >250 then order a T&S for DOS only VII. Known MANUEL or STOP-BANG> 5 no Snoring, feel Tired, Observed apnea, high blood Pressure, BMI >35, Age > 50, Neck circumference > 18 If pt has STOP-BANG >=5 with undiagnosed MANUEL and is being admitted then order: IP Consult to [facility] [employer] [facility] (comment regarding consult for undiagnosed MANUEL) - Follow steps 2 and 3 above If pt has STOP-BANG >=5 with undiagnosed MANUEL and is outpatient and interested in setting up a sleep study then: - send MashMango message to MANA and cc Dr. Pitt The patient was educated about potential implications of MANUEL on their perioperative course and recommendations for follow-up care and disease management were addressed, including inpatient consult tosleep medicine as above no VIII. Known or suspected difficult airway no and complete previous airway management section above If yes then: update Epic problem list to include: difficult airway and call Dr. Pitt or AIC IX. Frailty screen: No data recorded X. Suboxone (Buprenorphine / Naloxone) therapy? N/A XI. Most recent EKG (summarize, do not copy and paste): sinus tachycardia at 129 bpm - 8/10/23 EKG needed within 6 months if: (ASA >= 3 OR any RCRI) AND non-low risk procedure XII. Additional testing needed within 3 months prior to DOS (if possible, else on DOS) - CBC w/o diff if ASA >= 3 OR expected blood loss >250 OR previously abnormal - BMP if ASA >= 3 AND non low- risk procedure / previously abnormal - CMP (instead of BMP) for patient with chronic liver disease or previously abnormal -PT/ PTT/ INR if recent use of anticoagulants OR scheduled for major vascular procedures including aortic and carotid stents / aneurysm coiling / TIPS - A1c within 3 months Additional testing needed on DOS : - EPOC blood glucose for patients w/ DM - EPOC whole blood K+ for patient with ESRD or poorly controlled K+ Labs ordered today including PAT and surgeon orders: none Labs/ tests ordered or in need of review on DOS: hCG and T&C 2 units PRBCs Summary: Consuelo Darby is a 41 year old female presenting for right femoral cutdown, thrombectomy (Right) angiogram with possible intervention, possible vein harvest (Right). They have an ASA score of 4 and a RCRI / MACE score of 2 Points >= 6.6% Follow up results - have ALL the above ordered labs and vital signs been reviewed? YES - with the following notable abnormalities PTT 64.4 on heparin gtt, WBC 21.3, Hgb 7.8 - stable,Plt 584 They ARE OPTIMIZED - PAT EVALUATION COMPLETE George Deras DO 10/29/2022 9:17 PM for this procedure. Preoperative plan was not discussed w/ PAT attending (date and name). (please note that ALL RESIDENT charts must be discussed with the PAT director or designated person) PLEASE REMEMBER TO REFRESH THE VITAL SIGNS ABOVE BEFORE CLOSING ENCOUNTER PAT evaluation end: ANESTHESIA PLAN ASA Score: 4 NPO Status: No solids since midnight and No liquids within 2 hours Anesthesia Plan: general ETT Planned Induction: intravenous Planned Adjuncts: art line Planned Postop Destination: PACU Anesthetic plan was discussed with: spouse Anesthetic Plan discussion was: Consented Use of blood products were discussed with: spouse Use of blood product discussion was: Consented The patient's procedural Anesthetic Plan was discussed with the ANGIOGRAPHY TECHNOLOGIST. Overall additional findings/comments: Patient awake, alert but aphasic and does not follow commands. Plan for GETA With peripheral IVs and invasive arterial BP Monitoring. Hb 7.3 ( will have 3 units PRBC crossmatched and available in room). BMI, Height, Weight Tobacco History Estimated body [...] 0.9% NaCl 3 mL 3 mL at 10/29/22 1400 And ??? 0.9% NaCl 1-10 mL ??? 0.9% NaCl 3 mL 3 mL at 10/29/222105 And ??? 0.9% NaCl 3 mL ??? acetaminophen 500 mg 500 mg at 10/29/222111 ??? atorvastatin 80 mg 80 mg at 10/29/222105 ??? cefTRIAXone 2 g Stopped at 10/29/22 1433 ??? dextrose 5 % and lactated ringers ??? diphenhydrAMINE-zinc acetate Given at 10/28/22 1555 ??? guaiFENesin 10 mL 10 mL at 10/29/222105 ??? heparin 500-2,150 Units/hr 1,650 Units/hr at 10/29/22 1539 ??? hydrocortisone Given at 10/29/222108 ??? lansoprazole 30 mg 30 mg at 10/29/22 0624 ??? loratadine 10 mg 10 mg at 10/29/22 0917 ??? metoprolol tartrate IR 25 mg 25 mg at 10/29/222105 ??? polyethylene glycol 3350 17 g 17 g at 10/28/22 0831 ??? senna-docusate 1 tablet 1 tablet at 10/28/22 0829 ??? tamsulosin 0.4 mg 0.4 mg at 10/29/22 09 ??? vancomycin 1,750 mg Stopped at 10/29/222102 ??? vancomycin (VANCOCIN) IV dose per pharmacy ??? verapamil 40 mg 40 mg at 10/29/222105 ??? Vitamin D3 (cholecalciferol) 2,000 Units 2,000 Units at 10/29/22916 Allergies: Allergies Allergen Reactions ??? Latex Rash [...] DECOMPRESSIVE HEMICRANIECTOMY, POSS ICP MONITOR, POSS EVD ROUTE AIDE Status: Patient's last menstrual period was 02/01/2022 [...] Negative Recent Labs Base Name 10/28/22 2254 [id number] 105 SPECIMENTYPE Cap Fingerstick Recent Labs Component Name 10/29/22 0010 10/23/22 0129 10/22/22 0153 WBC 21.3* - - RBC 2.54* - - HCT 24.4* - - HGB 7.8* - - PLTCOUNT 584* - - PLT - - 199 MCV 96.1 - - MCH 30.7 - - MCHC 32.0 - - MPV 10.0 - - - = values in this interval not displayed. Recent Labs Component Name 10/29/22 1119 ABORH B POS ABSCG NEG Recent Labs Component Name 10/27/22 1208 BLOODU Negative NITRITE Negative PROTEINU Negative Recent Labs Component Name 10/29/22 0010 POTASSIUM 4.1 CALCIUM 8.8 CO2 24 GLUCOSE 110 BUN 9 CREATININE 0.54* Recent Labs Component Name 10/29/22 0010 MAGNESIUM 2.0 Recent Labs Component Name 10/29/22 0010 PHOS 4.8 Recent Labs Component Name 10/21/22 0801 PH 7.40 PO2 143* PCO2 31* BE -4.8* Recent Labs Component Name 10/29/22200110/29/22 1004 10/29/22 0214 PTT 70.7* - 60.3* PT - - 13.2 INR - - 1.0 - = values in this interval not displayed. No results found for requested labs within last 120 days. Recent Labs Result Component Current Result Alkaline Phosphatase 52 (10/19/2022) ALT 16 (10/19/2022) Anion Gap (AG) Arterial 10 (10/20/2022) Anion Gap 12 (10/29/2022) AST 19 (10/19/2022) eGFR by CKD-EPI >90 (10/29/2022) documented in this encounter Procedure Notes * Sandra Zavala APRN-CRNA - 10/30/2022 12:00 PM CDTAssociated Order(s): ETT Placement Endotracheal Tube Placement: Patient Location: OR. Intubation Event Date/Time: 10/30/2022 10:44 AM Procedure: intubation (00498). Procedure Section: Sedation: under general anesthesia. Indications for Airway Management: anesthesia Induction: standard IV Patient Position: sniffing Mask Ventilation: easy. Blade Type: Milana Blade Size: 3 Laryngoscopy View: grade 1 (full cords) Intubation Adjuncts: stylet Tube: endotracheal tube Placement: oral Tube type: cuff - inflated Tube Size (MM): 7 Depth of Insertion (CM): 21 Measured From: teeth Cuff volume (mL): 6 Cuff Inflated With: air Number of Attempts: 1. Placement Verified By: direct visualization, chest auscultation, CO2 detector, CO2 monitor and bilateral breath sounds CXR Findings: ETT in proper place. Tube secured with: adhesive tape. Dentition unchanged? Yes Difficult Airway? No. Procedure Start Time: 10/30/2022 10:44 AM. Staff Section Anesthesia Provider: Sandra Zavala APRN-CRNA, Performed the procedure Additional Comments: Teeth and soft tissue as preop.. * Sandra Zavala APRN-CRNA - 10/30/2022 11:39 AM CDTAssociated Order(s): Arterial Line Placement Arterial Line Placement Procedure Note Patient Location: OR. Procedure: Arterial Line (10281). Procedure Section Indications: hypotension and blood sampling needed. Skin Prep: Chloraprep. Orientation: Left. Site: radial. Site Identification: ultrasound guided with sterile sleeve and gel. Sterile Technique: small sterile fenestrated drape, sterile gloves, mask and cap. Gauge: 20. Seldinger Technique Used? Yes Number of Attempts: 2. Line Secured with: Tegaderm and tape. Procedure Tolerance: tolerated well. Events: none. Procedure Start Time: 10/30/2022 11:14 AM. Patient Sedated? Yes Sedation Types: general anesthesia Staff Section Anesthesia Provider: Manuel Ramirez MD, Performed the procedure Additional Comments: Atraumatic placement of Silvana.. documented in this encounter Miscellaneous Notes * Addendum Note - Sandra Zavala APRN-CRNA - 10/31/2022 12:36 PM CDT Addendum created 10/31/22 1236 by Sandra Zavala APRN-CRNA Intraprocedure Meds edited, Orders acknowledged in Narrator * Addendum Note - Trevor Gupta DO - 10/31/2022 8:11 AM CDT Addendum created 10/31/22 0811 by Trevor Gupta DO Clinical Note Signed * Anesthesia Transfer of Care - Sandra Zavala APRN-CRNA - 10/30/2022 2:50 PM CDT ANESTHESIA TRANSFER OF CARE NOTE Today's Date: 10/30/2022 Date of : 1980 Patient: Consuelo R [place] Procedure(s): RIGHT ILEO femoral thrombectomy VIA CUTDOWN. REPAIR OF FEMORAL ARTERY WITH PATCH. ANGIOGRAM Surgeon(s): Primary: Valdez Clay MD Preop Diagnosis: Pre-op Diagnois: * Ischemia [I99.8] Pre-op Meds (From admission, onward) Start Stop Status Route Frequency Ordered 10/30/22 0557 0.9% NaCl infusion rate and volume 10/31/22 0556 Verified IV ONCE PRN 10/30/22 0558 10/30/22 1034 0.9% NaCl infusion rate and volume 10/31/22 1033 Verified IV ONCE PRN 10/30/22 1036 10/19/22 0755 0.9% NaCl injection 1-10 mL [...] Tube EVERY 4 HOURS PRN 10/25/22 2152 10/30/22 1258 albuterol-ipratropium (Duo-Neb) nebulizer solution 3 mL 10/30/23 1257 Verified IN POST-OP MULTIPLE 10/30/22 1258 10/23/22 2100 atorvastatin (Lipitor) tablet 80 mg -- Dispensed Enteral Tube AT BEDTIME 10/23/22 1122 10/25/22 1407 cefTRIAXone (Rocephin) 2,000 mg in 0.9% NaCl IV 50 mL IVPB -- Dispensed IV EVERY 12 HOURS 10/25/22 0925 10/29/22 0700 dextrose 5 % and lactated ringers infusion -- Dispensed IV CONTINUOUS 10/29/22 0620 10/30/22 1258 diphenhydrAMINE (Benadryl) injection 25 mg -- Verified IV ONCE PRN 10/30/22 1258 10/30/22 1258 diphenhydrAMINE (Benadryl) injection 25 mg -- Verified IV POST-OP MULTIPLE 10/30/22 1258 10/26/22 1020 diphenhydrAMINE-zinc acetate (Benadryl Extra Strength) 2-0.1 % cream -- Dispensed TP PRN 10/26/22 1021 10/30/22 1258 fentaNYL (PF) (Sublimaze) injection 12.5 mcg -- Verified IV EVERY 5 MIN PRN 10/30/22 1258 10/30/22 1258 fentaNYL (PF) (Sublimaze) injection 25 mcg -- Verified IV EVERY 5 MIN PRN 10/30/22 1258 10/30/22 1258 glycopyrrolate (Robinul) injection 0.2 mg -- Verified IV ONCE PRN 10/30/22 1258 10/23/22 0915 guaiFENesin (Robitussin) solution 10 mL -- Dispensed Enteral Tube EVERY 12 HOURS 10/23/22 0845 10/25/22 1600 heparin 100 units/mL in dextrose 5 % infusion -- Dispensed IV CONTINUOUS 10/25/22 1522 10/30/22 1258 hydrALAZINE (Apresoline) injection 5 mg -- Verified IV POST-OP MULTIPLE 10/30/22 1258 10/28/22 1300 hydrocortisone (Hytone) 2.5 % ointment -- Verified TP 4 TIMES DAILY 10/28/22 0927 10/30/22 1258 HYDROmorphone (Dilaudid) injection 0.5 mg -- Verified IV EVERY 10 MIN PRN 10/30/22 1258 10/30/22 1258 labetalol (Normodyne; Trandate) injection 5 mg -- Verified IV POST-OP MULTIPLE 10/30/22 1258 10/30/22 1300 lactated ringers infusion 10/30/23 1259 Dispensed IV CONTINUOUS 10/30/22 1258 10/20/22 1045 lansoprazole (Prevacid) suspension 30 mg -- Dispensed Enteral Tube DAILY BEFORE BREAKFAST 10/20/22 1032 10/21/22 0900 loratadine (Claritin) tablet 10 mg -- Dispensed Enteral Tube DAILY 10/20/22 1029 10/23/22 0900 metoprolol tartrate IR (Lopressor) tablet 25 mg Note to Pharmacy: OP sig: Take 1 (one) tablet by mouth 2 times daily -- Dispensed Enteral Tube EVERY 12 HOURS 10/23/22 0716 10/30/22 1258 naloxone (Narcan) injection 0.04 mg -- Verified IV POST-OP MULTIPLE 10/30/22 1258 10/30/22 1258 ondansetron (Zofran) injection 4 mg -- Verified IV ONCE PRN 10/30/22 1258 10/20/22 1730 polyethylene glycol 3350 (Miralax) packet 17 g -- Dispensed Enteral Tube DAILY 10/20/22 1652 10/30/22 1258 prochlorperazine (Compazine) injection 10 mg -- Verified IV ONCE PRN 10/30/22 1258 10/20/22 1730 senna-docusate (Senokot-S) tablet 1 tablet -- Dispensed Enteral Tube DAILY 10/20/22 1652 10/25/22 0900 tamsulosin (Flomax) capsule 0.4 mg -- Dispensed Enteral Tube DAILY 10/24/22 1421 10/28/22 1900 vancomycin (Vancocin) 1,750 mg in 535 mL IVPB -- Dispensed IV EVERY 8 HOURS 10/28/22 1237 10/25/22 0128 vancomycin (Vancocin) IV dose per [...] Tube DAILY 10/20/22 1029 Post-op Diagnosis: * Ischemia [I99.8] . Allergies Allergen Reactions ??? 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: Patient Vitals for the past 3 hrs: BP Pulse Resp SpO2 10/30/22 1445 -- 94 14 100 % 10/30/22 1440 -- 95 13 100 % 10/30/22 1439 140/82 95 10 100 % 10/30/22 1435 140/82 96 15 100 % Lines, Drains, and Airways Type Details Placement Removal Peripheral IV Date: 10/27/22; Time: 0458; Orientation: Left; Location: Antecubital; Gauge: 18 Gauge; Tolerance: Well 10/27/22 0458 by Adry Lezama RN Gastric Tube 10/28/22; 2300; NGT; Nostril/Nare, Left 10/28/22 2300 by Karina Cottrell RN Peripheral IV Date: 10/30/22; Time: 0238; Orientation: Anterior, Right; Location: Forearm; Placed By: AMBROSE Sandoval; Gauge: 20 Gauge 10/30/22 0238 by Karina Cottrell RN ETT Date: 10/30/22; Time: 1044; Placed By: AMOR Giraldo; Vent: easy mask; Induction: Standard IV; Blade Type: Milana; Blade Size: 3; Laryngoscopy View: Grade 1 (full cords); IntubationAdjuncts: Stylet; Tube: Endotracheal Tube; Placement: Oral; Tube Type: Cuffed-inflated; Tube Size(mm): 7 MM; Depth of Insertion: 21 CM; Measured From: teeth; Attempts: 1; Cuff Infated: Air; Cuff Vol(mL): 6 mL; Verified By: Direct visualization, Bilateral breath sounds, Chest Auscultation, CO2 Monitor, CO2 Detector 10/30/22 1044 by Sandra Zavala APRN- CRNA 10/30/22 1427 by Sandra Zavala APRN-CRNA Arterial Line Date: 10/30/22; Time: 1114; Placed By: Manuel Ramirez MD; Location: radial; Orientation: Left; Gauge: 20; Line Secured: Taped; Tolerance: Well 10/30/22 1114 by Sandra Zavala APRN-CRNA Intraprocedure I/O Totals Intake Isolyte-S infusion 1200.00 mL NS (0.9% NaCl) 150.00 mL vancomycin (Vancocin) 1,750 mg in 535 mL IVPB 1605.56 mL TRANSFUSE RED BLOOD CELL LEUKOREDUCED UNIT(S) 700.00 mL Total Intake 3655.56 mL Output Urine 650 mL Estimated Blood Loss 400 mL Other 20 mL Total Output 1070 mL Net Net Volume 2585.56 mL Patient Transfer Location: ICU Transport Airway: supplemental O2, spontaneous respirations and oral airway (O2 Facemask 10L) Transport Monitoring: heart rate, continuous pulse oximetry, frequent blood pressure checks and social media specialist Complications: None Handoff Given? Yes AMOR Giraldo documented in this encounter Plan of Treatment Not on file documented as of this encounter Procedures Procedure Name Priority Date/Time Associated Diagnosis Comments ENDOTRACHEAL TUBE NOTE Routine 10/30/2022 12:00 PM CDT ARTERIAL LINE NOTE Routine 10/30/2022 11 :39 AM CDT documented in this encounter Results * ETT LINE PERFORMABLE (10/30/2022 12:00 PM CDT) Narrative Sandra Zavala APRN-CRNA - 10/30/2022 12:00 PM CDT Sandra Zavala APRN-CRNA ? 10/30/2022 12:00 PM Endotracheal Tube Placement: ? Patient Location: OR. Intubation Event Date/Time: ??10/30/2022 10:44 AM Procedure: intubation (04479). Procedure Section: ?? Sedation: under general anesthesia. [...] (10/30/2022 11:39 AM CDT) Narrative Sandra Zavala APRN-ANGIOGRAPHY TECHNOLOGIST - 10/30/2022 11:39 AM CDT Sandra Zavala APRN-ANGIOGRAPHY TECHNOLOGIST ? 10/30/2022 11:41 AM Arterial Line Placement Procedure Note Patient Location: OR. Procedure: Arterial Line ([id number]). Procedure Section ?? Indications: hypotension and blood [...] Manuel Ramirez MD GENERAL ANESTHESI A ORDERABLES documented in this encounter Visit Diagnoses Not on filedocumented in this encounter Administered Medications Inactive Administered Medications - up to 3 most recent administrations Medication Order MAR Action Action Date Dose Rate Site 0.9% NaCl infusion Intravenous, CONTINUOUS PRN, Starting on Sun10/30/22 at 1255, Until Sun10/30/22 at 1450, Anesthesia Intra-op $ New Bag/Syringe 10/30/2022 12:55 PM CDT calcium chloride 10 % injection Intravenous, PRN, Starting on Sun10/30/22 at 1324, Until Sun10/30/22 at 1450, Anesthesia Intra-op $ Given 10/30/2022 1:24 PM CDT 1 g fentaNYL (PF) (Sublimaze) injection Intravenous, PRN, Starting on Sun10/30/22 at 1041, Until Sun10/30/22 at 1450, Anesthesia Intra-op $ Given 10/30/2022 10:41 AM CDT 100 mcg heparin injection Intravenous, PRN, Starting on Sun10/30/22 at 1209, Until Sun10/30/22 at 1450, Anesthesia Intra-op $ Given 10/30/2022 1:44 PM CDT 4,000 Units $ Given 10/30/2022 1:14 PM CDT 2,000 Units $ Given 10/30/2022 12:19 PM CDT 2,000 Units HYDROmorphone (Dilaudid) injection Intravenous, PRN, Starting on Sun10/30/22 at 1143, Until Sun10/30/22 at 1450, Anesthesia Intra-op $ Given 10/30/2022 2:04 PM CDT 0.2 mg $ Given 10/30/2022 12:53 PM CDT 0.6 mg $ Given 10/30/2022 12:45 PM CDT 0.2 mg isolyte-S pH 7.4 infusion Intravenous, CONTINUOUS PRN, Starting on Sun10/30/22 at 1021, Until Sun10/30/22 at 1450, Anesthesia Intra-op $ New Bag/Syringe 10/30/2022 10:21 AM CDT isolyte-S pH 7.4 infusion Intravenous, CONTINUOUS PRN, Starting on Sun10/30/22 at 1114, Until Sun10/30/22 at 1450, Anesthesia Intra-op $ New Bag/Syringe 10/30/2022 11:14 AM CDT lidocaine HCl (PF) (Xylocaine MPF) 2 % injection Intravenous, PRN, Starting on Sun10/30/22 at 1041, Until Sun10/30/22 at 1450, Anesthesia Intra-op $ Given 10/30/2022 10:41 AM CDT 60 mg midazolam (Versed) injection Intravenous, PRN, Starting on Sun10/30/22 at 1015, Until Sun10/31/22 at 1235, Anesthesia Intra-op $ Given 10/30/2022 10:15 AM CDT 2 mg ondansetron (Zofran) injection Intravenous, PRN, Starting on Sun10/30/22 at 1233, Until Sun10/30/22 at 1450, Anesthesia Intra-op $ Given 10/30/2022 12:33 PM CDT 4 mg phenylephrine 100 mcg/mL injection Intravenous, PRN, Starting on Sun10/30/22 at 1137, Until Sun10/30/22 at 1450, Anesthesia Intra-op $ Given 10/30/2022 12:41 PM CDT 100 mcg $ Given 10/30/2022 12:35 PM CDT 100 mcg $ Given 10/30/2022 12:09 PM CDT 100 mcg propofol (Diprivan) injection Intravenous, PRN, Starting on Sun10/30/22 at 1132, Until Sun10/30/22 at 1450, Anesthesia Intra-op $ Given 10/30/2022 2:06 PM CDT 20 mg $ Given 10/30/2022 11:32 AM CDT 50 mg $ Given 10/30/2022 10:42 AM CDT 100 mg rocuronium (Zemuron) injection Intravenous, PRN, Starting on Sun10/30/22 at 1132, Until Sun10/30/22 at 1450, Anesthesia Intra-op $ Given 10/30/2022 12:58 PM CDT 20 mg $ Given 10/30/2022 11:32 AM CDT 25 mg $ Given 10/30/2022 10:42 AM CDT 75 mg sugammadex (Bridion) injection Intravenous, PRN, Starting on Sun10/30/22 at 1406, Until Sun10/30/22 at 1450, Anesthesia Intra-op $ Given 10/30/2022 2:06 PM CDT 200 mg TRANSFUSE RED BLOOD CELL LEUKOREDUCED UNIT(S) STAT, Suggested rate RBC's 1-2 mL/min (60-120 ml/hr) for first 15 minutes then as rapidly as tolerated, approximately 4 ml/min or 240 ml/hour. Usually given over 1-2 hours. For recipients at risk of fluid overload, may adjust flow rate to as low as 1 ml/kg/hour. 19th edition Technical Manual. 2017. AABB $ New Bag/Syringe 10/30/2022 12:57 PM CDT TRANSFUSE RED BLOOD CELL LEUKOREDUCED UNIT(S) STAT, Suggested rate RBC's 1-2 mL/min (60-120 ml/hr) for first 15 minutes then as rapidly as tolerated, approximately 4 ml/min or 240 ml/hour. Usually given over 1-2 hours. For recipients at risk of fluid overload, may adjust flow rate to as low as 1 ml/kg/hour. 19th edition Technical Manual. 2017. AABB $ New Bag/Syringe 10/30/2022 1:51 PM CDT vancomycin (Vancocin) 1,750 mg in 535 mL IVPB 1,750 mg, at 305.71 mL/hr, Intravenous, EVERY 8 HOURS, First dose on 10/28/22 at 1900, Until Discontinued, Indication for anti-infective therapy: Suspected infection, Site of anti-infective therapy: ENDOSCOPY TECHNICAN $ New Bag/Syringe 10/31/2022 4:26 AM CDT 1,750 mg 305.71 mL/hr Current Rate 10/30/2022 8:38 PM CDT 305.71 mL/h r Restarted 10/30/2022 8:37 PM CDT 305.71 mL/hr documented in this encounter Care Teams Motion Picture Camera Operator Relationship Specialty Start Date End Date Jean Joy MD PCP - OBGYN 12/27/07 Yvan Booth MD [address] [place] [id number] PCP - General 11/04/09 01/04/23 Jaden Thakur DO [address] [place] [id number] PCP - Attributed-[facility] 09/10/19 06/28/23 documented as of this encounter
--- OUTSIDE RECORDS SUMMARY | 2024-03-19 20:44 | XMS_ITS | Encounter Summary ---
Author Organization [facility] Address [address] [place] [address] Care Team Providers Care Pharmaceutical Development Technician Name Role Phone Jean Joy MD Unavailable Yvan Booth MD Primary Care Provider [phone] Jaden Thakur DO Unavailable [phone] Reason for Visit * Reason Comments Altered [...] Expiration Date Visits Re quested Visits Authorized [id number] 1 1 Encounter Details Date Type Department Care Team (Late st Contact Info) Description 10/30/2022 11:54 AM CDT - 10/30/2022 3:29 PM CDT Surgery [facility] [address] [place] [id number] Valdez Clay MD [address] [facility] [address] [place] [address] RIGHT ILEO femoral thrombectomy VIA CUTDOWN. REPAIR OF FEMORAL ARTERY WITH PATCH. ANGIOGRAM Surgery Details Date/Time Status Location OR Service Patient Class Case Class Case Type Trauma Case? 10/30/2022 11:[address] [facility] OR Hybrid OR 2 Vascular Inpatient Work Ins >24 Hrs to 5 Days Panel 1 Procedure LRB Anes Op Region Wound Class Comments RIGHT ILEO femoral thrombect silvio VIA CUTDOWN. REPAIR OF FEMORAL ARTERY WITH PATCH. ANGIOGRAM Right General Groin Clean Surgeon Surgeon Role Service Panel Valdez Clay MD Primary Vascular 1 Gisselle Florentino MD Vascular 1 Case Notes KW 10/27 Special Needs SUPINE; c-arm with angio ordered documented in this encounter Social History Tobacco [...] Date Recorded PHQ2 TOTAL SCORE 0 02/08/2022 [facility] - Occupational [...] place to sleep or slept in a prison (including now)? No 10/19/2022 Sex and Gender Information Value Date Recorded Sex Assigned at Not on file Gender Identity Not on file Sexual Orientation Not on file documented as of this encounter Last Filed Vital Signs Vital Sign Reading Time Taken Comments Blood Pressure 140/82 10/30/2022 2:39 PM CDT Pulse 99 10/30/2022 3:20 PM CDT Temperature 37 ??C (98.6 ??F) 10/30/2022 2:35 PM CDT Respiratory Rate 15 10/30/2022 3:20 PM CDT Oxygen Saturation 92% 10/30/2022 3:20 PM CDT Inhaled Oxygen Concentration 30% 10/24/2022 [...] Physician Discharge Summary Patient ID: Consuelo Darby [id number] 42 year old 1980 Admit date: 10/19/2022 [...] 11/17/22 0202 11/16/22 0217 11/15/22 0212 11/14/22 02311/13/22 0210 NA mmol/L 138 139 137 140 [...] Lab Units 11/17/22 0202 11/16/22 0217 11/15/22 02111/14/22 02311/13/22 0210 PT Seconds 14.4 13.9 14.3 15.9* 17.7* INR 1.1 1.1 1.1 1.3 1.5 Endocrine: Recent Labs Lab Units 11/13/22209 TSH uIU/mL 5.706* LFTs: Recent Labs Lab Units 11/17/2220111/15/2221111/14/22238 AST U/L 138* 104* 158* ALT U/L [...] > Dictated by Abdifatah Jean MD (residential installer). Alexx Ornelas have personally reviewed and interpreted this examination/study. > Interpreting Provider: Alexx Lopez on 11/17/2022 11:31 AM FL LUMBAR PUNCTURE Result Date: 11/15/2022 IMPRESSION: 1.Successful lumbar puncture under fluoroscopic guidance at L3-L4. > Dictated by Royer Stovall MD (residential installer). Oriana Ornelas MD have personally reviewed and interpreted this examination/study. > Interpreting Provider: Oriana Suarez MD on 11/15/2022 2:16 PM US ABDOMEN LTD W COMP DOPPLER Result Date: 11/14/2022 IMPRESSION: 1.No discrete hepatic lesion or intrahepatic biliary ductal dilatation. 2.Patent hepatic vasculature. Borderline low velocity the main portal vein measuring 18 cm/s. 3.Status post cholecystectomy. > Dictated by Miranda Bowen MD (residential installer). > Dictated by Miranda Bowen (Behavioral School Counselors) 11/14/2022 9:18 AM HEATHER Ornelas MD have [...] MD . Specialty: Neurological Surgery Contact information: [facility] OF NEUR[facility]URGERY [facility] [address] Contact information for after-discharge care Destination [facility] (ALL LOCATIONS) . Service: Inpatient Rehabilitation Contact information: [address] [place] [id number] Discharge Instructions You have been scheduled with Dr. Walter for follow up in regards to your stroke and hospital stay.If the time and/or day of this appointment doesn't work for you, please call [phone] to make changes. Continue Doxycycline and Meropenem [...] incision after showering. Call our office at [phone] for: Chills/fever/Temp greater than 101 degrees If your incision has drainage, swelling, redness, or if it opens. If your foot becomes cold, painful, you have problems moving it, or it changes color After hours number is [phone] and ask for vascular surgery Follow up in clinic with Dr Clay in 4 weeks with vascular studies prior to appt; you will be contacted regarding this To make or change an appt call [phone] Urology Follow-up You have a follow up appointment with Dottie Monreal NP on SundayDecember 06 at 9:45am. Thisis at the [facility], located at [address] [place] [address], [facility] [address]. The clinic number is [phone]. It is very important that you make [...] appointment doesn't work for you, please call [phone] to make changes. We may consider hypercoagulability [...] incision after showering. Call our office at [phone] for: Chills/fever/Temp greater than 101 degrees If your incision has drainage, swelling, redness, or if it opens. If your foot becomes cold, painful, you have problems moving it, or it changes color After hours number is [phone] and ask for vascular surgery Follow up in clinic with Dr Clay in 4 weeks with vascular studies prior to appt; you will be contacted regarding this To make or change an appt call [phone] Urology Follow-up You have a follow up appointment with Dottie Monreal NP on SundayDecember 06 at 9:45am. Thisis at the [place] office, located at [address], [place] [address]. The clinic number is [phone]. It is very important that you make [...] PM CDT Report given to Katelyn at [facility]. * Anita Richards - 11/17/2022 12:50 PM CDT Facility Transfer Note Actual level of care at discharge: Acute Rehab Facility Discharge Facility Information: [facility] ([address] [place] [address]) [place] Made Aware of Special Needs (if applicable): JAMIE RN Call Report to: [phone] Fax D/C Orders to:[phone] Date/time of transfer: 11/17/2022 @ m Trip# [id number] Transportation: [facility] [phone] Certificate of Medical Necessity rationale: Rt middle [...] contact #: Dr. Frias Completed and Signed [id number] (if applicable): NA Family/Other Notified of Transfer (name/phone): Patient/spouse notified Authorization for [facility] Facility: ARU rec'd Authorization for Transportation: NA Verified Qualifying Stay(Skilled Only): NOT APPLICABLE Comments: SW faxed discharge to facility orders, after visit summary, and the MAR report to the accepting facility. Thank you, JAYLENE Holcomb, [facility] 11/17/2022 12:50 PM * Elida Yancey RN - 11/17/2022 12:14 PM CDT [facility] has accepted this patient and she is in agreement to be transfered to acute rehab on the [facility] room 303. Patient and family updated at bedside. Room is ready. Accepting physician is Dr. Frias. May fax discharge orders to [phone]. May call report to [phone]. If needed, Business Solutions Architect can be reached at [phone]. Thank you for the referral. Elida Yancey RN, BSN Clinical Liaison [facility] [phone] * Chin Cabello RN - 11/17/2022 11:06 [...] Rehab Facility: Anticipated level of care provider: [facility]: Anticipated Discharge Date: 11/17/22: Discharge Plan: [facility] Re[facility] pending bed availability. Orientation Level: Oriented to Person;Oriented to Place;Oriented to Situation: Family Support (Name and Phone): Extended Emergency Contact Information Primary Emergency Contact: MehnazHi Address: [address] [place] [address] [place] [address] [facility] Relation: Spouse Secondary Emergency Contact: Sandra Disla [facility] Mobile Relation: Mother Transportation at Discharge: Ambulance: READMISSION RISK SCORE is 17 at 12:58 PM 11/17/2022.: Name: Maru Mcduffie RN 2426 * Roderick Hernández, PharmD - 11/17/2022 9:47 AM CDT Warfarin per Pharmacy Protocol S/O Consueol Darby is on warfarin for ischemic stroke [...] mg Hep gtt started and warfarin restarted 9/3 2.0 3 mg INR response may be [...] 111/59 Recent Labs Component Name 11/17/22 0202 11/16/2221611/15/22 021 NA 138 139 137 CL 99 [...] interval not displayed. Recent Labs Component Name 11/16/227 11/15/2221111/14/22 023 NA 139 137 140 CL 104 103 104 CO2 27 26 25 BUN 13 12 11 CREATININE 0.57 0.50* 0.51* CALCIUM 8.8 8.6 8.6 No results for input(s): MG in the last 32170 hours. Recent Labs Component Name 11/16/227 11/15/222 11/14/22238 PHOS 3.5 3.0 3.5 Recent Labs Component Name 11/16/2221611/15/2221111/14/22238 PT 13.9 14.3 15.9* INR 1.1 1.1 1.3 PTT 26.0 28.2 45.9* No results for input(s): A1C in the last 22855 hours. Recent Labs Component Name 10/20/22 0302 [...] > Dictated by Miranda Bowen MD (residential installer). > Dictated by Miranda Bowen (Behavioral School Counselors) 11/14/2022 9:18 AM IHEATHER MD have personally reviewed and interpreted this examination/study. > Interpreting Provider: HEATHER FREGOSO MD on 11/14/2022 9:54 AM XR CHEST 1VW PORTABLE Result Date: 11/13/2022 PROCEDURE: XR CHEST 1VW PORTABLE, DATE/TIME OF EXAM: 11/12/2022 8:45 PM, LOCATION [facility] INDICATION: R50.9: Fever, unspecified fever cause [...] Report dictated by Agnes Olmos DO (residential installer). IPepe MD have p ersonally reviewed and interpreted this examination/study. > Interpreting Provider: Pepe Gonzalez MD on 11/13/2022 11:59 AM MRI BRAIN WWO CONTRAST Result Date: 11/10/2022 PROCEDURE: MRI BRAIN WWO CONTRAST, DATE/TIME OF EXAM: 11/09/2022 11:51 PM, LOCATION [facility] INDICATION: R50.9: Fever, unspecified fever cause [...] of the right lateral ventricle and the debkx-xh-yila midline shift. Extensive susceptibility artifacts along the [...] DATE/TIME OF EXAM: 11/07/2022 5:25 PM, LOCATION [facility] INDICATION: R50.9: Fever, unspecified fever cause [...] > Dictated by Tim Major MD (residential installer). IAlexx have personally reviewed and interpreted this [...] m-mode, color and spectralDoppler echocardiography. IR INTRACRANIAL [facility] THROMBECT Result Date: 11/07/2022 PROCEDURE: IR [facility] TH[facility] DATE/TIME OF EXAM: 10/19/2022 10:41 [...] Time to Reperfusion: 9:54 Final TICI: 2b Administrative Fellow: Dr. Mitali Walter Supervisor Paper Products(s): Isak Monte Vessels: Ultrasound Guided Access of Femoral Artery Ultrasound Guided Access of Radial Artery Arterial line placement in the right radial artery Right Common Carotid Artery Angiogram: Cerebral Intracranial Catheterization Mechanical Thrombectomy with Retrievable Stent and Reperfusion Catheter Angiography Through the Existing Catheter Right Femoral Artery Angiogram Anesthesia: General Anesthesia was performed and monitored by an attending Anesthesiologist and their executive chef assistant throughout the entirety of the case [...] artery demonstrated a patent vessel. A 5 v[place] citizen sheath was placed in the radial artery [...] Following a series of exchanges, a 8 Turkmen sheath sheath was placed in the right femoralartery. A Guide and a 6 Turkmen [employer] 2 catheter along with a [...] system. Hemostasis was achieved using a 8 Turkmen Angio-Seal closure device. Hemostasis was immediate at [...] DATE/TIME OF EXAM: 11/05/2022 5:28 PM, LOCATION [facility] INDICATION: R50.9: Fever, unspecified fever cause [...] Report dictated by Mc Castro MD, (residential installer). Pepe Ornelas MD have personally reviewed and [...] DATE/TIME OF EXAM: 11/05/2022 9:38 AM, LOCATION [facility] INDICATION: R50.9: Fever, unspecified fever cause ADDITIONAL CLINICAL INFORMATION: Ordering Provider Reason For Exam: consolidation COMPARISON: Chest radiograph 10/29/2022. FINDINGS/IMPRESSION: Previously seen feeding tube has been removed. These no confluent consolidation, pleural effusion, or pneumothorax is noted. The cardiomediastinal silhouette is stable. No acute osseous abnormality is noted. Report dictated by Christopher Tobin MD, (residential installer). I, HEATHER FREGOSO MD have personally reviewed and interpreted this examination/study. > Interpreting Provider: HEATHER FREGOSO MD on 11/05/2022 2:[address] ABDOMEN WO CONTRAST Result Date: 11/02/2022 PROCEDURE: CT ABDOMEN WO CONTRAST, DATE/TIME OF EXAM: 2022 6:47 PM, LOCATION [facility] INDICATION: Z93.1: Presence of externally removable [...] > Dictated by Tim Major MD (residential installer). I, Pepe Gonzalez MD have personallyreviewed and interpreted this examination/study. > Interpreting Provider: Pepe Gonzalez MD on 11/02/2022 1:[address] ABDOMEN PELVIS W CONTRAST Result Date: 10/31/2022 PROCEDURE: CT ABDOMEN PELVIS W CONTRAST, DATE/TIME OF EXAM: 10/31/2022 10:16 AM, LOCATION [facility] INDICATION: I33.0: Aortic valve vegetation ADDITIONAL [...] DATE/TIME OF EXAM: 10/30/2022 8:22 PM, LOCATION: [facility] HISTORY: I63.511: Right middle cerebral artery [...] frontal gyrus/frontal operculum, consistent with an evolving aszhitos-cr-ahhlqzx infarct. 4.No significant midline shift. Similar-appearing size and configuration of the ventricles without evidence of hydrocephalus. Basal cisterns are patent. 5.No other convincing change. Partially imaged left nasoenteric tube. > Interpreting Provider: Amanda Real MD, PhD on 10/31/2022 1:26 AM MD GLENN Farhad ANGIO TEAM Result Date: 10/30/2022 Fluoroscopy was used for this exam in the OR. Please see the Operative report. XR CHEST 1VW PORTABLE Result Date: 10/29/2022 PROCEDURE: XR CHEST 1VW PORTABLE, DATE/TIME OF EXAM: 10/29/2022 10:29 AM, LOCATION [facility] INDICATION: R09.02: Hypoxia ADDITIONAL CLINICAL INFORMATION: Ordering Provider Reason For Exam: evaluate for hypoxia COMPARISON: Chest x-ray from 10/27/2022 FINDINGS/IMPRESSION: Enteric tube is seen coursing over the diaphragm without visualization of the distal tip. There is no focal consolidation, pleural effusion, or pneumothorax. The cardiomediastinal silhouette is normal. Report dictated by Jacques Russell DO (residential installer). I, Jacques Cole DO have personally reviewed and interpreted this examination/study. 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 Report dictated by Jacques Russell DO (residential installer). Jacques Ornelas DO have personally reviewed and interpreted this examination/study. 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 FINDINGS/IMPRESSION: Enteric tube courses below the diaphragm with the distal tip superimposing the antropyloric region. Report dictated by Martell Shetty MD (residential installer). Jacques Ornelas DO have personally reviewed and interpreted this examination/study. > Interpreting Provider: Jacques Cole DO on 10/28/2022 12:[address] HEAD WO CONTRAST Result Date: 10/28/2022 PROCEDURE: CT HEAD WO CONTRAST, DATE/TIME OF EXAM: 10/28/2022 5:28 AM, LOCATION [facility] INDICATION: Z91.89: At high risk for [...] is dictated by Kayla Stevenson MD (residential installer) 1 ILonnie MD have personally reviewed and interpreted this examination/study. > Interpreting Provider: Lonnie Rae MD on 10/28/2022 9:15 AM XR CHEST 1VW PORTABLE Result Date: 10/27/2022 PROCEDURE: XR CHEST 1VW PORTABLE, DATE/TIME OF EXAM: 10/27/2022 10:19 AM, LOCATION [facility] INDICATION: D72.829: Leukocytosis, unspecified type ADDITIONAL CLINICAL INFORMATION: Ordering Provider Reason For Exam: any concern for pneumonia COMPARISON: Chest radiograph dated 10/25/2022. FINDINGS/IMPRESSION: Enteric tube courses below the diaphragm and out of the wgcif-hr-hpwy. RUQ surgical clips are present. No focal consolidation. No pleural effusion or pneumothorax. The cardiomediastinal silhouette is normal. Report dictated by Agnes Olmos DO (residential installer). Pepe Ornelas MD have personally reviewed and interpreted this examination/study. 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 Enteric tube courses below the diaphragm and out of the amlym-vg-felx. There is severe left rotation of the patient in this study. There is no focal consolidation, pleural effusion, or pneumothorax. The left upper lobe pulmonary nodule noted on chest CT from same day is not visualized on this plain film. The cardiomediastinal silhouette is normal. The visible bony thorax is intact. Report dictated by Royer Stovall MD (residential installer). I, Alexx Lopez have personally reviewed and interpreted this examination/study. > Interpreting Provider: Alexx Lopez on 10/26/2022 2:[address] HEAD WO CONTRAST Result Date: 10/26/2022 PROCEDURE: CT HEAD WO CONTRAST, DATE/TIME OF EXAM: 10/26/2022 4:55 AM, LOCATION [facility] INDICATION: I63.511: Right middle cerebral artery [...] is dictated by Miranda Bowen MD (residential installer) I, Oriana Suarez MD have personally reviewed and interpreted this examination/study. > Interpreting Provider: Oriana Suarez MD on 38:[address] CHEST ABDOMEN PELVIS W CONT Result Date: 10/25/2022 PROCEDURE: CT CHEST ABDOMEN PELVIS W CONT, DATE/TIME OF EXAM: 10/25/2022 12:56 PM, LOCATION [facility] INDICATION: I63.511: Right middle cerebral [...] > Dictated by Clarisa Cantrell MD (residential installer). I, Alexx Lopez have personally reviewed and interpreted this examination/study. > Interpreting Provider: Alexx Lopez on 10/25/2022 4:[address] HEAD WO CONTRAST Result Date: 10/25/2022 PROCEDURE: CT HEAD WO CONTRAST, DATE/TIME OF EXAM: 10/25/2022 12:56 PM, LOCATION [facility] INDICATION: I63.511: Right middle cerebral artery [...] is dictated by Miranda Bowen MD (residential installer) I, Joni Fabian MD have personally reviewed and interpreted this examination/study. > Interpreting Provider: Joni Fabian MD on 10/25/2022 2:[address] CARDIAC ANGIO STRUCT MORPH Result Date: 10/25/2022 PROCEDURE: CT CARDIAC ANGIO STRUCT MORPH, DATE/TIME OF EXAM: 10/23/2022 3:08 PM, LOCATION [facility] INDICATION: I63.411: Acute cerebrovascular accident (CVA) [...] DATE/TIME OF EXAM: 10/24/2022 2:04 PM, LOCATION [facility] INDICATION: R47.1: Dysarthria ADDITIONAL CLINICAL INFORMATION: Ordering Provider ReasonFor Exam: ngt placement COMPARISON: Portable KUB dated 10/23/2022 FINDINGS/IMPRESSION: The enteric tube courses below the diaphragm with tip superimposing the gastric pyloric region. Drafted by Agnes Olmos DO (residential installer). I, Vanessa Kumar MD have personally reviewed and interpreted this examination/study. > Interpreting Provider: Vanessa Kumar MD on 10/24/2022 2:17 PM MRI BRAIN WWO CONTRAST Result Date: 10/24/2022 PROCEDURE: MRI BRAIN WWO CONTRAST, DATE/TIME OF EXAM: 10/24/2022 10:56 AM, LOCATION [facility] INDICATION: I63.411: Acute cerebrovascular accident (CVA) [...] right lateral ventricle, and approximately 3-4 mm czgfh-xa-lnfv midline shift at the level of the [...] right lateral ventricle, and approximately 3-4 mm bsnrn-cf-pnmn midline shift, grossly similar to the prior. [...] Report dictated by Tim Major MD (residential installer). IJasper MD have personally reviewed and interpreted this examination/study. > Interpreting Provider: Jasper Sifuentes MD on 10/24/2022 1:59 PM XR CHEST 1VW PORTABLE Result Date: 10/24/2022 PROCEDURE: XR CHEST 1VW PORTABLE, DATE/TIME OF EXAM: 10/23/2022 8:24 AM, LOCATION [facility] INDICATION: I63.511: Right middle cerebral artery stroke (CMS/HCC) ADDITIONAL CLINICAL INFORMATION: Ordering Provider Reason For Exam: OETT position COMPARISON: Chest radiograph dated 10/21/2022 FINDINGS/IMPRESSION: The enteric tube courses below the diaphragm out of the inferior tthkg-jc-gews. Endotracheal tube terminates in the midthoracic trachea. There is no focal consolidation. No pleural effusion or pneumothorax. The cardiomediastinal silhouette is normal. No acute osseous abnormality. Report dictated by Agnes Olmos DO (residential installer). Vanessa Ornelas MD have personally reviewed and [...] DATE/TIME OF EXAM: 10/23/2022 1:53 PM, LOCATION [facility] INDICATION: R47.1: Dysarthria ADDITIONAL CLINICAL INFORMATION: Ordering Provider Reason For Exam: NGT placement COMPARISON: Portable KUB dated 10/20/2022 FINDINGS/IMPRESSION: The enteric tube courses below the diaphragm with tip superimposing the stomach. Drafted by Agnes Olmos DO (residential installer). I, Vanessa Kumar MD have personally reviewed and interpreted thisexamination/study. > Interpreting Provider: Vanessa Kumar MD on 10/24/2022 8:[address] HEAD WO CONTRAST Result Date: 10/23/2022 PROCEDURE: CT HEAD WO CONTRAST, DATE/TIME OF EXAM: 10/23/2022 5:53 AM, LOCATION [facility] INDICATION: I63.511: Right middle cerebral artery [...] report is dictated by Miranda Bowen MD(residential installer) I, Jasper Sifuentes MD have personally reviewed and interpreted this examination/study. > Interpreting Provider: Jasper Sifuentes MD on 10/23/2022 9:[address] HEAD WO CONTRAST Result Date: 10/22/2022 PROCEDURE: CT HEAD WO CONTRAST, DATE/TIME OF EXAM: 10/22/2022 5:35 AM, LOCATION [facility] INDICATION: I63.511: Right middle cerebral artery [...] hemorrhage. Report dictated by Lorenzo Horta MD (vice president sales). I, Lonnie Rae MD have personally reviewed and interpreted this examination/study. > Interpreting Provider: Lonnie Rae MD on 10/22/2022 3:10 PM XR CHEST 1VW PORTABLE Result Date: 10/21/2022 PROCEDURE: XR CHEST 1VW PORTABLE, DATE/TIME OF EXAM: 10/21/2022 8:53 AM, LOCATION [facility] INDICATION: R53.1: Weakness ADDITIONAL CLINICAL INFORMATION: [...] dictated by Christopher Tobin MD, MD (residential installer). I, HEATHER FREGOSO MD have personally reviewed [...] DATE/TIME OF EXAM: 10/20/2022 9:13 PM, LOCATION [facility] INDICATION: I63.411: Acute cerebrovascular accident (CVA) due to embolism of right middle cerebral artery (CMS/HCC) ADDITIONAL CLINICAL INFORMATION: Ordering Provider Reason For Exam: [facility] COMPARISON: Multiple prior studies, most recently [...] effacement, effacement of theright lateral ventricle, and tledb-sx-fwbv midline shift measuring up to 4 mm [...] prior. > Dictated by Bassam Jovel M.D. (vice president sales) Gonzalez Ornelas MD have personally reviewed [...] Report dictated by Royer Stovall MD (residential installer). 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 insurance auth Insurance authorization is required for post acute care needs Payer/Plan Subscriber Name Rel Member # Group # [id number] WELL* CONSUELO DARBY [id number] [address] [address] Anticipated level of care at discharge: Acute Rehab Facility: Anticipated level of care provider: [facility]: Anticipated Discharge Date: 11/17/22: Orientation Level: Oriented to Person;Oriented to Place;Oriented to Time: Family Support (Name and Phone): Extended Emergency Contact Information Primary Emergency Contact: Hi Darby Address: [address] [place] [id number] [facility] Relation: Spouse Secondary Emergency Contact: Sandra Disla [facility] Mobile Relation: Mother Transportation at Discharge: Ambulance: READMISSION RISK SCORE is 16 at 3:39 PM 11/16/2022.: Name: Anita Richards * Jerry Leigh SLP - 11/16/2022 1:30 PM CDT [facility] Language Evaluation and Swallow Therapy Patient: Consuelo Darby Med Record Number: [id number] Date of : 1980 Age: [age] year old PPE: n95, gloves Impressions: Patient's speech and language assessed via the WAB. Patient demonstrated a mild expressive language deficit, with halting speech and slow processing. Patient completed PO trial of multiple ice chips and attempted to drink from the straw but was unable to achieve adequate suction. FIXED CAPITAL CLERK utilized straw as a pipette and patient [...] to demonstrate gains in problem solving/abstract reasoning. Resolution Analyst Goals: Patient to be independent/baseline with speech/language/cognitive/swallowing to beable to safely discharge to prior level of care. If patient is discharged from the facility, this note serves as a discharge note if further speech therapy visits did not occur. Jerry Valle M.A., [facility]-FIXED CAPITAL CLERK Speech Language Pathologist [phone] * Shania Troy OT - 11/16/2022 12:01 PM CDT [facility] Physical Medicine and Rehabilitation Occupational Therapy Progress Note Patient: Consuelo Darby Med Record Number: [id number] Date of : 1980 Age: [age] year old PPE worn by staff: gloves;mask - cardiovascular surgical tech: Cheli Recommendations: Discharge OT Discharge Recommendations: Patient [...] Appearance: Pt in bed upon arrival in [facility]. LDA: PIV, PEG, puentes catheter [...] activity tolerance: fair Modified Maryann: Current Modified [place] Score: 5 AM-PAC 6 Clicks Daily Activity [...] with good endurance and with minimal pain Resolution Analyst Goal(s): Patient to discharge to appropriate next [...] 6.0* EAG 126 Recent Labs Component Name 11/16/2221611/15/2221111/14/22 0239 10/27/22 2029 10/27/22 0054 PLTCOUNT 446* [...] 91 -- 107/63 Recent Labs Component Name 11/15/2221111/14/22 0239 11/13/22 0210 NA 137 140 138 CL 103 104 107 CO2 26 25 23 BUN 12 11 11 CREATININE 0.50* 0.51* 0.54* CALCIUM 8.6 8.6 8.1* PHOS 3.0 3.5 3.9 Recent Labs Component Name 11/15/2221111/14/22 0239 11/13/22 0210 10/23/22 0129 10/22/22 0153 [...] 6.0* EAG 126 Recent Labs Component Name 11/15/222 11/14/22 0239 11/13/22 0210 10/27/22202810/27/22 0054 PLTCOUNT 404* 364 334 - [...] follow up tomorrow. chaplain Cici Ascom [phone] market investigator [phone] * Shania Troy OT - 11/15/2022 10:52 AM CDT [facility] Department of Physical Medicine & Rehabilitation Progress Note Patient: Consuelo Darby Med Record Number: [id number] Date of : 1980 Age: [age] year old 11/15/22 1146 Missed Visit Missed Visit Procedure Off Floor Pt off the floor for LP at time of OT attempt. OT will continue to follow and attempt treatment session at a later time/date as appropriate. * Rosa Vegas, PT - 11/15/2022 10:40 AM CDT [facility] Department of Physical Medicine & Rehabilitation Progress Note Patient: Consuelo Darby Med Record Number: [id number] Date of : 1980 Age: [age] year [...] results for input(s): MG in the last 82718 hours. Recent Labs Component Name 11/15/2221111/14/2223811/13/22209 PHOS 3.0 3.5 3.9 Recent Labs Component Name 11/15/2221111/14/2223811/13/22209 PT 14.3 15.9* 17.7* INR 1.1 1.3 1.5 PTT 28.2 45.9* 47.9* No results for input(s): A1C in the last 68850 hours. Recent Labs Component Name 10/20/22 0302 [...] > Dictated by Miranda Bowen MD (residential installer). > Dictated by Miranda Bowen ([employer]) 11/14/2022 9:18 AM IHEATHER MD have personally reviewed and interpreted this examination/study. > Interpreting Provider: HEATHER FREGOSO MD on 11/14/2022 9:54 AM XR CHEST 1VW PORTABLE Result Date: 11/13/2022 PROCEDURE: XR CHEST 1VW PORTABLE, DATE/TIME OF EXAM: 11/12/2022 8:45 PM, LOCATION [facility] INDICATION: R50.9: Fever, unspecified fever cause [...] Report dictated by Agnes Olmos DO (residential installer). I, Pepe Gonzalez MD have p ersonally reviewed and interpreted this examination/study. > Interpreting Provider: Pepe Gonzalez MD on 11/13/2022 11:59 AM MRI BRAIN WWO CONTRAST Result Date: 11/10/2022 PROCEDURE: MRI BRAIN WWO CONTRAST, DATE/TIME OF EXAM: 11/09/2022 11:51 PM, LOCATION [facility] INDICATION: R50.9: Fever, unspecified fever cause [...] of the right lateral ventricle and the rxozl-gh-bikc midline shift. Extensive susceptibility artifacts along the [...] DATE/TIME OF EXAM: 11/07/2022 5:25 PM, LOCATION [facility] INDICATION: R50.9: Fever, unspecified fever cause [...] > Dictated by Tim Major MD (residential installer). I, Alexxmat Lopez have personally reviewed and interpreted this [...] THROMBECT Result Date: 11/07/2022 PROCEDURE: IR INTRACRANIAL [facility] THROMBECT DATE/TIME OF EXAM: 10/19/2022 10:41 AM [...] Time to Reperfusion: 9:54 Final TICI: 2b Administrative Fellow: Dr. Mitali Walter Supervisor Paper Products(s): Isak Monte Vessels: Ultrasound Guided Access of Femoral Artery Ultrasound Guided Access of Radial Artery Arterial line placement in the right radial artery Right Common Carotid Artery Angiogram: Cerebral Intracranial Catheterization Mechanical Thrombectomy with Retrievable Stent and Reperfusion Catheter Angiography Through the Existing Catheter Right Femoral Artery Angiogram Anesthesia: General Anesthesia was performed and monitored by an attending Anesthesiologist and their executive chef assistant throughout the entirety of the case [...] artery demonstrated a patent vessel. A 5 vatican citizen sheath was placed in the radial artery [...] Following a series of exchanges, a 8 Turkmen sheath sheath was placed in the right femoralartery. A Guide and a 6 Turkmen Penumbra Select Serrano 2 catheter along with [...] system. Hemostasis was achieved using a 8 Turkmen Angio-Seal closure device. Hemostasis was immediate at [...] DATE/TIME OF EXAM: 11/05/2022 5:28 PM, LOCATION [facility] INDICATION: R50.9: Fever, unspecified fever cause [...] Report dictated by Mc Castro MD, (residential installer). I, Pepe Gonzalez MD have personally reviewed [...] DATE/TIME OF EXAM: 11/05/2022 9:38 AM, LOCATION [facility] INDICATION: R50.9: Fever, unspecified fever cause ADDITIONAL CLINICAL INFORMATION: Ordering Provider Reason For Exam: consolidation COMPARISON: Chest radiograph 10/29/2022. FINDINGS/IMPRESSION: Previously seen feeding tube has been removed. These no confluent consolidation, pleural effusion, or pneumothorax is noted. The cardiomediastinal silhouette is stable. No acute osseous abnormality is noted. Report dictated by Christopher Tobin MD, (residential installer). I, HEATHER FREGOSO MD have personally reviewed and interpreted this examination/study. > Interpreting Provider: HEATHER FREGOSO MD on 11/05/2022 2:[address] ABDOMEN WO CONTRAST Result Date: 11/02/2022 PROCEDURE: CT ABDOMEN WO CONTRAST, DATE/TIME OF EXAM: 2022 6:47 PM, LOCATION [facility] INDICATION: Z93.1: Presence of externally removable [...] > Dictated by Tim Major MD (residential installer). I, Pepe Gonzalez MD have personallyreviewed and interpreted this examination/study. > Interpreting Provider: Pepe Gonzalez MD on 11/02/2022 1:[address] ABDOMEN PELVIS W CONTRAST Result Date: 10/31/2022 PROCEDURE: CT ABDOMEN PELVIS W CONTRAST, DATE/TIME OF EXAM: 10/31/2022 10:16 AM, LOCATION [facility] INDICATION: I33.0: Aortic valve vegetation ADDITIONAL [...] DATE/TIME OF EXAM: 10/30/2022 8:22 PM, LOCATION: [facility] HISTORY: I63.511: Right middle cerebral artery [...] frontal gyrus/frontal operculum, consistent with an evolving xgmtcjtl-fw-lfhpssq infarct. 4.No significant midline shift. Similar-appearing size and configuration of the ventricles without evidence of hydrocephalus. Basal cisterns are patent. 5.No other convincing change. Partially imaged left nasoenteric tube. > Interpreting Provider: Amanda Real MD, PhD on 10/31/2022 1:26 AM MD GLENN W ANGIO TEAM Result Date: 10/30/2022 Fluoroscopy was used for this exam in the OR. Please see the Operative report. XR CHEST 1VW PORTABLE Result Date: 10/29/2022 PROCEDURE: XR CHEST 1VW PORTABLE, DATE/TIME OF EXAM: 10/29/2022 10:29 AM, LOCATION [facility] INDICATION: R09.02: Hypoxia ADDITIONAL CLINICAL INFORMATION: Ordering Provider Reason For Exam: evaluate for hypoxia COMPARISON: Chest x-ray from 10/27/2022 FINDINGS/IMPRESSION: Enteric tube is seen coursing over the diaphragm without visualization of the distal tip. There is no focal consolidation, pleural effusion, or pneumothorax. The cardiomediastinal silhouette is normal. Report dictated by Jacques Russell DO (residential installer). Jacques Ornelas DO have personally reviewed and interpreted this examination/study. 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 Report dictated by Jacques Russell DO (residential installer). Jacques Ornelas DO have personally reviewed and interpreted this examination/study. 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 FINDINGS/IMPRESSION: Enteric tube courses below the diaphragm with the distal tip superimposing the antropyloric region. Report dictated by Martell Shetty MD (residential installer). I, Jacques Cole DO have personally reviewed and interpreted this examination/study. > Interpreting Provider: Jacques Cole DO on 10/28/2022 12:[address] HEAD WO CONTRAST Result Date: 10/28/2022 PROCEDURE: CT HEAD WO CONTRAST, DATE/TIME OF EXAM: 10/28/2022 5:28 AM, LOCATION [facility] INDICATION: Z91.89: At high risk for [...] is dictated by Kayla Stevenson MD (residential installer) 1 ILonnie MD have personally reviewed and interpreted this examination/study. > Interpreting Provider: Lonnie Rae MD on 10/28/2022 9:15 AM XR CHEST 1VW PORTABLE Result Date: 10/27/2022 PROCEDURE: XR CHEST 1VW PORTABLE, DATE/TIME OF EXAM: 10/27/2022 10:19 AM, LOCATION [facility] INDICATION: D72.829: Leukocytosis, unspecified type ADDITIONAL CLINICAL INFORMATION: Ordering Provider Reason For Exam: any concern for pneumonia COMPARISON: Chest radiograph dated 10/25/2022. FINDINGS/IMPRESSION: Enteric tube courses below the diaphragm and out of the vypnc-pn-hrim. RUQ surgical clips are present. No focal consolidation. No pleural effusion or pneumothorax. The cardiomediastinal silhouette is normal. Report dictated by Agnes Olmos DO (residential installer). I, Pepe Gonzalez MD have personally reviewed and interpreted this examination/study. 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 Enteric tube courses below the diaphragm and out of the micjn-ip-fhyt. There is severe left rotation of the patient in this study. There is no focal consolidation, pleural effusion, or pneumothorax. The left upper lobe pulmonary nodule noted on chest CT from same day is not visualized on this plain film. The cardiomediastinal silhouette is normal. The visible bony thorax is intact. Report dictated by Royer Stovall MD (residential installer). I, Alexx Lopez have personally reviewed and interpreted this examination/study. > Interpreting Provider: Alexx Lopez on 10/26/2022 2:[address] HEAD WO CONTRAST Result Date: 10/26/2022 PROCEDURE: CT HEAD WO CONTRAST, DATE/TIME OF EXAM: 10/26/2022 4:55 AM, LOCATION [facility] INDICATION: I63.511: Right middle cerebral artery [...] is dictated by Miranda Bowen MD (residential installer) I, Oriana Suarez MD have personally reviewed and interpreted this examination/study. > Interpreting Provider: Oriana Suarez MD on 38:[address] CHEST ABDOMEN PELVIS W CONT Result Date: 10/25/2022 PROCEDURE: CT CHEST ABDOMEN PELVIS W CONT, DATE/TIME OF EXAM: 10/25/2022 12:56 PM, LOCATION [facility] INDICATION: I63.511: Right middle cerebral [...] > Dictated by Clarisa Cantrell MD (residential installer). I, Alexx Lopez have personally reviewed and interpreted this examination/study. > Interpreting Provider: Alexx Lopez on 10/25/2022 4:[address] HEAD WO CONTRAST Result Date: 10/25/2022 PROCEDURE: CT HEAD WO CONTRAST, DATE/TIME OF EXAM: 10/25/2022 12:56 PM, LOCATION [facility] INDICATION: I63.511: Right middle cerebral artery stroke ([facility]) I33.0: Aortic valve vegetation ADDITIONAL CLINICAL INFORMATION: [...] is dictated by Miranda Bowen MD (residential installer) I, Joni Fabian MD have personally reviewed and interpreted this examination/study. > Interpreting Provider: Joni Fabian MD on 10/25/2022 2:[address] CARDIAC ANGIO STRUCT MORPH Result Date: 10/25/2022 PROCEDURE: CT CARDIAC ANGIO STRUCT MORPH, DATE/TIME OF EXAM: 10/23/2022 3:08 PM, LOCATION [facility] INDICATION: I63.411: Acute cerebrovascular accident (CVA) [...] DATE/TIME OF EXAM: 10/24/2022 2:04 PM, LOCATION [facility] INDICATION: R47.1: Dysarthria ADDITIONAL CLINICAL INFORMATION: Ordering Provider Reason For Exam: ngt placement COMPARISON: Portable KUB dated 10/23/2022 FINDINGS/IMPRESSION: The enteric tube courses below the diaphragm with tip superimposing the gastric pyloric region. Drafted by Taryn RUBIN (residential installer). I, Vanessa Kumar MD have personally reviewed and interpreted this examination/study. > Interpreting Provider: Vanessa Kumar MD on 10/24/2022 2:17 PM MRI BRAIN WWO CONTRAST Result Date: 10/24/2022 PROCEDURE: MRI BRAIN WWO CONTRAST, DATE/TIME OF EXAM: 10/24/2022 10:56 AM, LOCATION [facility] INDICATION: I63.411: Acute cerebrovascular accident (CVA) [...] right lateral ventricle, and approximately 3-4 mm rhsds-xc-ljvb midline shift at the level of the [...] right lateral ventricle, and approximately 3-4 mm rjcbh-sg-lgjd midline shift, grossly similar to the prior. [...] Report dictated by Tim Major MD (residential installer). I, Jasper Sifuentes MD have personally reviewed and interpreted this examination/study. > Interpreting Provider: Jasper Sifuentes MD on 10/24/2022 1:59 PM XR CHEST 1VW PORTABLE Result Date: 10/24/2022 PROCEDURE: XR CHEST 1VW PORTABLE, DATE/TIME OF EXAM: 10/23/2022 8:24 AM, LOCATION [facility] INDICATION: I63.511: Right middle cerebral artery stroke ([facility]/HCC) ADDITIONAL CLINICAL INFORMATION: Ordering Provider Reason For Exam: OETT position COMPARISON: Chest radiograph dated 10/21/2022 FINDINGS/IMPRESSION: The enteric tube courses below the diaphragm out of the inferior pdave-gy-tcpd. Endotracheal tube terminates in the midthoracic trachea. There is no focal consolidation. No pleural effusion or pneumothorax. The cardiomediastinal silhouette is normal. No acute osseous abnormality. Report dictated by Agnes Olmos DO (residential installer). Vanessa Ornelas MD have personally reviewed and [...] DATE/TIME OF EXAM: 10/23/2022 1:53 PM, LOCATION [facility] INDICATION: R47.1: Dysarthria ADDITIONAL CLINICAL INFORMATION: Ordering Provider ReasonFor Exam: NGT placement COMPARISON: Portable KUB dated 10/20/2022 FINDINGS/IMPRESSION: The enteric tube courses below the diaphragm with tip superimposing the stomach. Drafted by Agnes Olmos DO (residential installer). Vanessa Ornelas MD have personally reviewed and interpreted this examination/study. > Interpreting Provider: Vanessa Kumar MD on 10/24/2022 8:[address] HEAD WO CONTRAST Result Date: 10/23/2022 PROCEDURE: CT HEAD WO CONTRAST, DATE/TIME OF EXAM: 10/23/2022 5:53 AM, LOCATION [facility] INDICATION: I63.511: Right middle cerebral artery [...] report is dictated by Miranda Bowen MD(residential installer) IJasper MD have personally reviewed and interpreted this examination/study. > Interpreting Provider: Jasper Sifuentes MD on 10/23/2022 9:[address] HEAD WO CONTRAST Result Date: 10/22/2022 PROCEDURE: CT HEAD WO CONTRAST, DATE/TIME OF EXAM: 10/22/2022 5:35 AM, LOCATION [facility] INDICATION: I63.511: Right middle cerebral artery [...] hemorrhage. Report dictated by Lorenzo Horta MD (vice president sales). ILonnie MD have personally reviewed and interpreted this examination/study. > Interpreting Provider: Lonnie Rae MD on 10/22/2022 3:10 PM XR CHEST 1VW PORTABLE Result Date: 10/21/2022 PROCEDURE: XR CHEST 1VW PORTABLE, DATE/TIME OF EXAM: 10/21/2022 8:53 AM, LOCATION [facility] INDICATION: R53.1: Weakness ADDITIONAL CLINICAL INFORMATION: [...] dictated by Christopher Tobin MD, MD (residential installer). HEATHER Ornelas MD have personally reviewed and [...] DATE/TIME OF EXAM: 10/20/2022 9:13 PM, LOCATION [facility] INDICATION: I63.411: Acute cerebrovascular accident (CVA) due to embolism of right middle cerebral artery (CMS/HCC) ADDITIONAL CLINICAL INFORMATION: Ordering Provider Reason For Exam: [facility] COMPARISON: Multiple prior studies, most recently [...] effacement, effacement of theright lateral ventricle, and ysfqt-vs-sgzq midline shift measuring up to 4 mm [...] prior. > Dictated by Bassam Jovel M.D. (vice president sales) Gonzalez Ornelas MD have personally reviewed [...] Report dictated by Royer Stovall MD (residential installer). I, Amanda Prieto MD have personally reviewed [...] DATE/TIME OF EXAM: 10/19/2022 8:16 AM, LOCATION [facility] INDICATION: Code Stroke ADDITIONAL CLINICAL INFORMATION: [...] DATE/TIME OF EXAM: 10/19/2022 8:04 AM, LOCATION [facility] INDICATION: Code Stroke ADDITIONAL CLINICAL INFORMATION: [...] Troy OT - 11/14/2022 3:13 PM CDT [facility] Physical Medicine and Rehabilitation Occupational Therapy Progress Note Patient: Consuelo Darby Med Record Number: [id number] Date of : 1980 Age: [age] year old PPE worn by staff: gloves;mask - cardiovascular surgical tech: Cheli Reevaluation not indicated this date s/p [...] Appearance: Pt in bed upon arrival in [facility], finishing with PT. LDA: PIV, [...] TOLERANCE: Patient's activity tolerance: fair minus Modified H[place]: Current Modified [place] Score: 5 AM-PAC 6 Clicks Daily Activity [...] with good endurance and with minimal pain Resolution Analyst Goal(s): Patient to discharge to appropriate next [...] reach, with family in room, with RN, Radha aware, with therapy cues visible on white board. * Jerry Leigh, JOSETTE - 11/14/2022 3:01 PM CDT [facility] Physical Medicine and Rehabilitation Swallow and Speech Treatment Patient: Consuelo Darby Med Record Number: [id number] Date of : 1980 Age: [age] year [...] Impression - Pharyngeal: Moderate Treatment/Education/Interventions: While performing FIXED CAPITAL CLERK, Patient and sister was instructed in: goals [...] precautions., Patient will follow recommended swallowing strategies. Resolution Analyst Goal (s): Patient to be independent/baseline with functional mobility and self care and be able to safely discharge to prior level of care. Jerry Valle M.A., [facility]-FIXED CAPITAL CLERK Speech Language Pathologist [phone] * Solomon Brush DO - 11/14/2022 1:34 PM CDT [facility] MEDICINE CONSULTATION Patient: Consuelo Darby Age: [age] year old Date of : 1980 Date of Admission: 10/19/2022 Date: 11/14/2022 Reason for consult: elevated liver enzymes Consult team: Neuro stroke HISTORY: I saw . Consuelo Darby in consultation at [facility] on 11/14/2022 for evaluation of her [...] displayed. Coagulation Panel: Recent Labs Component Name 11/14/22 02311/13/22 0210 11/12/22 0532 PT 15.9* 17.7* 22.1* INR 1.3 1.5 2.0 PTT 45.9* 47.9* 102.7* BMP: Recent Labs Component Name 11/14/22 02311/13/22 0210 11/12/22 0532 NA 140 138 136 CL 104 107 105 CO2 21* BUN 11 11 13 CREATININE 0.51* 0.54* 0.59 CALCIUM 8.6 8.1* 7.8* Recent Labs Component Name 11/14/2223811/13/22 02111/12/22 0532 MAGNESIUM 2.0 2.2 1.7 Recent Labs Component Name 11/14/22 02311/13/22 0210 11/12/22 0532 PHOS 3.5 3.9 2.5* [...] until attested/co-signed by the attending physician. Solomon rBush, IM Resident PGY-1 [facility] Associated attestation - Cory Villarreal MD [...] Pain affecting intake: No Estimated Needs: KCAL: [id number] (30-35 kcal/kg IBW) Protein (g): 82g (1.5 [...] Vegas, PT - 11/14/2022 10:00 AM CDT [facility] Physical Medicine and Rehabilitation Physical Therapy Progress Note Patient: Consuelo Darby Med Record Number: [id number] Date of : 1980 Age: [age] year [...] therapeutic exercises, and monitoring of vitals Modified [place]: Current Modified [place] Score: 5 AM-PAC 6 Clicks Mobility Raw [...] EOB x10 minutes with minimal assist ?? Resolution Analyst Goal(s): Patient to discharge to appropriate next [...] results for input(s): MG in the last 81260 hours. Recent Labs Component Name 11/14/22 0239 11/13/22 0210 11/12/22 0532 PHOS 3.5 3.9 2.5* Recent Labs Component Name 11/14/22 0239 11/13/22 0210 11/12/22 0532 PT 15.9* 17.7* 22.1* INR 1.3 1.5 2.0 PTT 45.9* 47.9* 102.7* No results for input(s): A1C in the last 33376 hours. Recent Labs Component Name 10/20/22 0302 06/15/22 0757 CHOL 173 204* HDL 42 37* LDLCALC 91 117* TRIG 201* 251* Recent Labs Component Name 11/13/22 021 TSH 5.706* Recent Labs Component Name 11/13/22 1534 CKTOTAL 57 XR CHEST 1VW PORTABLE Result Date: 11/13/2022 PROCEDURE: XR CHEST 1VW PORTABLE, DATE/TIME OF EXAM: 11/12/2022 8:45 PM, LOCATION [facility] INDICATION: R50.9: Fever, unspecified fever cause [...] Report dictated by Agnes Olmos DO (residential installer). I, Pepe Gonzalez MD have p ersonally reviewed and interpreted this examination/study. > Interpreting Provider: Pepe Gonzalez MD on 11/13/2022 11:59 AM MRI BRAIN WWO CONTRAST Result Date: 11/10/2022 PROCEDURE: MRI BRAIN WWO CONTRAST, DATE/TIME OF EXAM: 11/09/2022 11:51 PM, LOCATION [facility] INDICATION: R50.9: Fever, unspecified fever cause [...] of the right lateral ventricle and the wpyck-xw-wtkt midline shift. Extensive susceptibility artifacts along the [...] DATE/TIME OF EXAM: 11/07/2022 5:25 PM, LOCATION [facility] INDICATION: R50.9: Fever, unspecified fever cause [...] > Dictated by Tim Major MD (residential installer). I, Alexx Lopez have personally reviewed and [...] m-mode, color and spectralDoppler echocardiography. IR INTRACRANIAL [facility] THROMBECT Result Date: 11/07/2022 PROCEDURE: [facility] DATE/TIME OF EXAM: 10/19/2022 10:41 [...] Time to Reperfusion: 9:54 Final TICI: 2b Administrative Fellow: Dr. Mitali Walter Supervisor Paper Products(s): Isak Monte Vessels: Ultrasound Guided Access of Femoral Artery Ultrasound Guided Access of Radial Artery Arterial line placement in the right radial artery Right Common Carotid Artery Angiogram: Cerebral Intracranial Catheterization Mechanical Thrombectomy with Retrievable Stent and Reperfusion Catheter Angiography Through the Existing Catheter Right Femoral Artery Angiogram Anesthesia: General Anesthesia was performed and monitored by an attending Anesthesiologist and their executive chef assistant throughout the entirety of the case [...] artery demonstrated a patent vessel. A 5 v[place] citizen sheath was placed in the radial artery [...] Following a series of exchanges, a 8 Turkmen sheath sheath was placed in the right femoralartery. A Guide and a 6 Turkmen Hojoki Select Serrano 2 catheter along with a [...] system. Hemostasis was achieved using a 8 Turkmen Angio-Seal closure device. Hemostasis was immediate at [...] DATE/TIME OF EXAM: 11/05/2022 5:28 PM, LOCATION [facility] INDICATION: R50.9: Fever, unspecified fever cause [...] Report dictated by Mc Castro MD, (residential installer). IPepe MD have personally reviewed and interpreted [...] DATE/TIME OF EXAM: 11/05/2022 9:38 AM, LOCATION [facility] INDICATION: R50.9: Fever, unspecified fever cause ADDITIONAL CLINICAL INFORMATION: Ordering Provider Reason For Exam: consolidation COMPARISON: Chest radiograph 10/29/2022. FINDINGS/IMPRESSION: Previously seen feeding tube has been removed. These no confluent consolidation, pleural effusion, or pneumothorax is noted. The cardiomediastinal silhouette is stable. No acute osseous abnormality is noted. Report dictated by Christopher Tobin MD, (residential installer). I, HEATHER FREGOSO MD have personally reviewed and interpreted this examination/study. > Interpreting Provider: HEATHER FREGOSO MD on 11/05/2022 2:[address] ABDOMEN WO CONTRAST Result Date: 11/02/2022 PROCEDURE: CT ABDOMEN WO CONTRAST, DATE/TIME OF EXAM: 2022 6:47 PM, LOCATION [facility] INDICATION: Z93.1: Presence of externally removable [...] > Dictated by Tim Major MD (residential installer). I, Pepe Gonzalez MD have personallyreviewed and interpreted this examination/study. > Interpreting Provider: Pepe Gonzaelz MD on 11/02/2022 1:[address] ABDOMEN PELVIS W CONTRAST Result Date: 10/31/2022 PROCEDURE: CT ABDOMEN PELVIS W CONTRAST, DATE/TIME OF EXAM: 10/31/2022 10:16 AM, LOCATION [facility] INDICATION: I33.0: Aortic valve vegetation ADDITIONAL [...] DATE/TIME OF EXAM: 10/30/2022 8:22 PM, LOCATION: [facility] HISTORY: I63.511: Right middle cerebral artery [...] frontal gyrus/frontal operculum, consistent with an evolving llbcxxou-ht-cynepvd infarct. 4.No significant midline shift. Similar-appearing size and configuration of the ventricles without evidence of hydrocephalus. Basal cisterns are patent. 5.No other convincing change. Partially imaged left nasoenteric tube. > Interpreting Provider: Amanda Real MD, PhD on 10/31/2022 1:26 AM MD GLENN Farhad ANGIO TEAM Result Date: 10/30/2022 Fluoroscopy was used for this exam in the OR. Please see the Operative report. XR CHEST 1VW PORTABLE Result Date: 10/29/2022 PROCEDURE: XR CHEST 1VW PORTABLE, DATE/TIME OF EXAM: 10/29/2022 10:29 AM, LOCATION [facility] INDICATION: R09.02: Hypoxia ADDITIONAL CLINICAL INFORMATION: Ordering Provider Reason For Exam: evaluate for hypoxia COMPARISON: Chest x-ray from 10/27/2022 FINDINGS/IMPRESSION: Enteric tube is seen coursing over the diaphragm without visualization of the distal tip. There is no focal consolidation, pleural effusion, or pneumothorax. The cardiomediastinal silhouette is normal. Report dictated by Jacques Russell DO (residential installer). I, Jacques Cole DO have personally reviewed and interpreted this examination/study. 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 Report dictated by Jacques Russell DO (residential installer). Jacques Ornelas DO have personally reviewed and interpreted this examination/study. 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 FINDINGS/IMPRESSION: Enteric tube courses below the diaphragm with the distal tip superimposing the antropyloric region. Report dictated by Martell Shetty MD (residential installer). Jacques Ornelas DO have personally reviewed and interpreted this examination/study. > Interpreting Provider: Jacques Cole DO on 10/28/2022 12:[address] HEAD WO CONTRAST Result Date: 10/28/2022 PROCEDURE: CT HEAD WO CONTRAST, DATE/TIME OF EXAM: 10/28/2022 5:28 AM, LOCATION [facility] INDICATION: Z91.89: At high risk for [...] is dictated by Kayla Stevenson MD (residential installer) 1 ILonnie MD have personally reviewed and interpreted this examination/study. > Interpreting Provider: Lonnie Rae MD on 10/28/2022 9:15 AM XR CHEST 1VW PORTABLE Result Date: 10/27/2022 PROCEDURE: XR CHEST 1VW PORTABLE, DATE/TIME OF EXAM: 10/27/2022 10:19 AM, LOCATION [facility] INDICATION: D72.829: Leukocytosis, unspecified type ADDITIONAL CLINICAL INFORMATION: Ordering Provider Reason For Exam: any concern for pneumonia COMPARISON: Chest radiograph dated 10/25/2022. FINDINGS/IMPRESSION: Enteric tube courses below the diaphragm and out of the weknl-va-qrmg. RUQ surgical clips are present. No focal consolidation. No pleural effusion or pneumothorax. The cardiomediastinal silhouette is normal. Report dictated by Agnes Olmos DO (residential installer). Pepe Ornelas MD have personally reviewed and interpreted this examination/study. 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 Enteric tube courses below the diaphragm and out of the ythpt-ma-hdru. There is severe left rotation of the patient in this study. There is no focal consolidation, pleural effusion, or pneumothorax. The left upper lobe pulmonary nodule noted on chest CT from same day is not visualized on this plain film. The cardiomediastinal silhouette is normal. The visible bony thorax is intact. Report dictated by Royer Stovall MD (residential installer). I, Alexx Lopez have personally reviewed and interpreted this examination/study. > Interpreting Provider: Alexx Lopez on 10/26/2022 2:[address] HEAD WO CONTRAST Result Date: 10/26/2022 PROCEDURE: CT HEAD WO CONTRAST, DATE/TIME OF EXAM: 10/26/2022 4:55 AM, LOCATION [facility] INDICATION: I63.511: Right middle cerebral artery [...] is dictated by Miranda Bowen MD (residential installer) I, Oriana Suarez MD have personally reviewed and interpreted this examination/study. > Interpreting Provider: Oriana Suarez MD on 38:[address] CHEST ABDOMEN PELVIS W CONT Result Date: 10/25/2022 PROCEDURE: CT CHEST ABDOMEN PELVIS W CONT, DATE/TIME OF EXAM: 10/25/2022 12:56 PM, LOCATION [facility] INDICATION: I63.511: Right middle cerebral [...] > Dictated by Clarisa Cantrell MD (residential installer). I, Alexx Lopez have personally reviewed and interpreted this examination/study. > Interpreting Provider: Alexx Lopez on 10/25/2022 4:[address] HEAD WO CONTRAST Result Date: 10/25/2022 PROCEDURE: CT HEAD WO CONTRAST, DATE/TIME OF EXAM: 10/25/2022 12:56 PM, LOCATION [facility] INDICATION: I63.511: Right middle cerebral artery [...] is dictated by Miranda Bowen MD (residential installer) I, Joni Fabian MD have personally reviewed and interpreted this examination/study. > Interpreting Provider: Joni Fabian MD on 10/25/2022 2:[address] CARDIAC ANGIO STRUCT MORPH Result Date: 10/25/2022 PROCEDURE: CT CARDIAC ANGIO STRUCT MORPH, DATE/TIME OF EXAM: 10/23/2022 3:08 PM, LOCATION [facility] INDICATION: I63.411: Acute cerebrovascular accident (CVA) [...] DATE/TIME OF EXAM: 10/24/2022 2:04 PM, LOCATION [facility] INDICATION: R47.1: Dysarthria ADDITIONAL CLINICAL INFORMATION: Ordering Provider ReasonFor Exam: ngt placement COMPARISON: Portable KUB dated 10/23/2022 FINDINGS/IMPRESSION: The enteric tube courses below the diaphragm with tip superimposing the gastric pyloric region. Drafted by Agnes Olmos DO (residential installer). I, Vanessa Kumar MD have personally reviewed and interpreted this examination/study. > Interpreting Provider: Vanessa Kumar MD on 10/24/2022 2:17 PM MRI BRAIN WWO CONTRAST Result Date: 10/24/2022 PROCEDURE: MRI BRAIN WWO CONTRAST, DATE/TIME OF EXAM: 10/24/2022 10:56 AM, LOCATION [facility] INDICATION: I63.411: Acute cerebrovascular accident (CVA) [...] right lateral ventricle, and approximately 3-4 mm awlma-ot-lxdo midline shift at the level of the [...] right lateral ventricle, and approximately 3-4 mm bvijc-hk-jgcx midline shift, grossly similar to the prior. [...] Report dictated by Tim Major MD (residential installer). Jasper Ornelas MD have personally reviewed and interpreted this examination/study. > Interpreting Provider: Jasper Sifuentes MD on 10/24/2022 1:59 PM XR CHEST 1VW PORTABLE Result Date: 10/24/2022 PROCEDURE: XR CHEST 1VW PORTABLE, DATE/TIME OF EXAM: 10/23/2022 8:24 AM, LOCATION [facility] INDICATION: I63.511: Right middle cerebral artery stroke ([facility]) ADDITIONAL CLINICAL INFORMATION: Ordering Provider Reason For Exam: OETT position COMPARISON: Chest radiograph dated 10/21/2022 FINDINGS/IMPRESSION: The enteric tube courses below the diaphragm out of the inferior eoipw-yl-oapg. Endotracheal tube terminates in the midthoracic trachea. There is no focal consolidation. No pleural effusion or pneumothorax. The cardiomediastinal silhouette is normal. No acute osseous abnormality. Report dictated by Agnes Olmos DO (residential installer). Vanessa Ornelas MD have personally reviewed and [...] DATE/TIME OF EXAM: 10/23/2022 1:53 PM, LOCATION [facility] INDICATION: R47.1: Dysarthria ADDITIONAL CLINICAL INFORMATION: Ordering Provider ReasonFor Exam: NGT placement COMPARISON: Portable KUB dated 10/20/2022 FINDINGS/IMPRESSION: The enteric tube courses below the diaphragm with tip superimposing the stomach. Drafted by Agnes Olmos DO (residential installer). I, Vanessa Kumar MD have personally reviewed and interpreted this examination/study. > Interpreting Provider: Vanessa Kumar MD on 10/24/2022 8:[address] HEAD WO CONTRAST Result Date: 10/23/2022 PROCEDURE: CT HEAD WO CONTRAST, DATE/TIME OF EXAM: 10/23/2022 5:53 AM, LOCATION [facility] INDICATION: I63.511: Right middle cerebral artery [...] report is dictated by Miranda Bowen MD(residential installer) IJasper MD have personally reviewed and interpreted this examination/study. > Interpreting Provider: Jasper Sifuentes MD on 10/23/2022 9:[address] HEAD WO CONTRAST Result Date: 10/22/2022 PROCEDURE: CT HEAD WO CONTRAST, DATE/TIME OF EXAM: 10/22/2022 5:35 AM, LOCATION [facility] INDICATION: I63.511: Right middle cerebral artery [...] hemorrhage. Report dictated by Lorenzo Horta MD (vice president sales). ILonnie MD have personally reviewed and interpreted this examination/study. > Interpreting Provider: Lonnie Rae MD on 10/22/2022 3:10 PM XR CHEST 1VW PORTABLE Result Date: 10/21/2022 PROCEDURE: XR CHEST 1VW PORTABLE, DATE/TIME OF EXAM: 10/21/2022 8:53 AM, LOCATION [facility] INDICATION: R53.1: Weakness ADDITIONAL CLINICAL INFORMATION: [...] dictated by Christopher Tobin MD, MD (residential installer). I, HEATHER FREGOSO MD have personally reviewed [...] DATE/TIME OF EXAM: 10/20/2022 9:13 PM, LOCATION [facility] INDICATION: I63.411: Acute cerebrovascular accident (CVA) due to embolism of right middle cerebral artery (CMS/HCC) ADDITIONAL CLINICAL INFORMATION: Ordering Provider Reason For Exam: [facility] COMPARISON: Multiple prior studies, most recently [...] effacement, effacement of theright lateral ventricle, and ltxdn-mo-zlwq midline shift measuring up to 4 mm [...] prior. > Dictated by Bassam Jovel M.D. (vice president sales) Gonzalez Ornelas MD have personally reviewed [...] Report dictated by Royer Stovall MD (residential installer). Amanda Ornelas MD have personally reviewed and [...] DATE/TIME OF EXAM: 10/19/2022 8:16 AM, LOCATION [facility] INDICATION: Code Stroke ADDITIONAL CLINICAL INFORMATION: [...] DATE/TIME OF EXAM: 10/19/2022 8:04 AM, LOCATION [facility] INDICATION: Code Stroke ADDITIONAL CLINICAL INFORMATION: [...] Yes) Hepatocellular injury (POA: No) Assessment Consuelo Dayami Darby??is a 41 year [...] MD - 11/14/2022 8:55 AM CDT [facility] Infectious Diseases Progress Note Date of Admission: 10/19/2022 7:53 AM Length of Stay: Room: [facility] Attending: Good Antunez MD Subjective Since last seen by us, she remains afebrile, hemodynamically stable, on room air. No acute events overnight, no acute distress, no new complaints. Unchanged mental status. Review of Systems Unable to perform ROS: Mental status change Antimicrobial History Current Antibiotics Meropenem 11/12 - present Doxycycline 11/05 - present Prior Antibiotics At [facility] Cefazolin 10/20 Vancomycin 10/20; 10/25 - Ceftriaxone [...] DVT At this time most concerning for -IDENTIFICATION CLERK infection, MRI cannot rule out cerebritis/meningitis, needs [...] Liam Parks MD (PGY-5) Infectious Diseases Fellow [facility] Pager: [phone] ID Clinic Associated attestation - Gilberto Pastrana MD - 11/14/2022 10:00 PM CDT I have reviewed the record and independently examined the patient. I agree with the findings and plan of care as documented by the house painter. 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 Gilberto Pastrana MD, PhD, FID * [place], Good Agarwal MD - 11/14/2022 8:37 AM CDT I [...] 97.8 ??F (36.6 ??C) 91 -- 112/61 09/04/23 2332 97.5 ??F (36.4 ??C) 82 -- 108/67 11/13/22 1930 97.8 ??F (36.6 ??C) 80 -- 119/70 11/13/22 1630 97.5 ??F (36.4 ??C) 76 16 113/65 11/13/22 1341 -- 80 -- 110/60 11/13/22 1215 97.2 ??F (36.2 ??C) 83 16 115/68 11/13/22 1214 97.2 ??F (36.2 ??C) 83 16 115 Recent Labs Component Name 11/14/22 0239 11/13/22 0210 11/12/22 0532 NA 140 138 136 CL 104 107 105 CO2 25 23 21* BUN 11 11 13 CREATININE 0.51* 0.54* 0.59 CALCIUM 8.6 8.1* 7.8* PHOS 3.5 3.9 2.5* Recent Labs Component Name 11/14/22 02311/13/22 0210 11/12/22 0532 10/23/22 0129 10/22/22 0153 [...] EAG 126 Recent Labs Component Name 11/14/22 02311/13/22 0210 11/12/22 0532 10/27/22202810/27/22 0054 PLTCOUNT 364 [...] ??F (37.6 ??C) Oral -- -- -- 11/12/221718 -- (!) 100.3 ??F (37.9 ??C) Oral [...] interval not displayed. Recent Labs Component Name 11/13/2220911/12/2232 11/11/22 1703 NA 138 136 140 CL 107 105 108* CO2 23 21* 22 BUN 11 13 11 CREATININE 0.54* 0.59 0.56 CALCIUM 8.1* 7.8* 8.4 No results for input(s): MG in the last 41901 hours. Recent Labs Component Name 11/13/22 0210 11/12/22 0532 11/11/22 1703 PHOS 3.9 2.5* 3.3 Recent Labs Component Name 11/13/22 0210 11/12/22 0532 11/11/22 2351 11/11/22 1703 11/11/22 0928 PT 17.7* 22.1* - - 16.2* INR 1.5 2.0 - - 1.3 PTT 47.9* 102.7* 78.8* - 129.8* - = values in this interval not displayed. No results for input(s): A1C in the last 29295 hours. Recent Labs Component Name 10/20/22 0302 06/15/22 0757 CHOL 173 204* HDL 42 37* LDLCALC 91 117* TRIG 201* 251* Recent Labs Component Name 11/13/22 021 TSH 5.706* No results for input(s): CKMB, CKTOTAL, CKMB, TROPONINI, BNP in the last 42444 hours. XR CHEST 1VW PORTABLE Result Date: 11/13/2022 PROCEDURE: XR CHEST 1VW PORTABLE, DATE/TIME OF EXAM: 11/12/2022 8:45 PM, LOCATION [facility] INDICATION: R50.9: Fever, unspecified fever cause [...] Report dictated by Agnes Olmos DO (residential installer). I, Pepe Gonzalez MD have p ersonally reviewed and interpreted this examination/study. > Interpreting Provider: Pepe Gonzalez MD on 11/13/2022 11:59 AM MRI BRAIN WWO CONTRAST Result Date: 11/10/2022 PROCEDURE: MRI BRAIN WWO CONTRAST, DATE/TIME OF EXAM: 11/09/2022 11:51 PM, LOCATION [facility] INDICATION: R50.9: Fever, unspecified fever cause [...] of the right lateral ventricle and the tjpga-qj-otmi midline shift. Extensive susceptibility artifacts along the [...] DATE/TIME OF EXAM: 11/07/2022 5:25 PM, LOCATION [facility] INDICATION: R50.9: Fever, unspecified fever cause [...] > Dictated by Tim Major MD (residential installer). I, Alexx Lopez have personally reviewed and [...] m-mode, color and spectralDoppler echocardiography. IR INTRACRANIAL [facility] THROMBECT Result Date: 11/07/2022 PROCEDURE: IR INTRACRANIAL [facility] THROMBECT DATE/TIME OF EXAM: 10/19/2022 10:41 AM [...] Time to Reperfusion: 9:54 Final TICI: 2b Administrative Fellow: Dr. Mitali Walter Supervisor Paper Products(s): Isak Monte Vessels: Ultrasound Guided Access of Femoral Artery Ultrasound Guided Access of Radial Artery Arterial line placement in the right radial artery Right Common Carotid Artery Angiogram: Cerebral Intracranial Catheterization Mechanical Thrombectomy with Retrievable Stent and Reperfusion Catheter Angiography Through the Existing Catheter Right Femoral Artery Angiogram Anesthesia: General Anesthesia was performed and monitored by an attending Anesthesiologist and their executive chef assistant throughout the entirety of the case [...] artery demonstrated a patent vessel. A 5 v[place] citizen sheath was placed in the radial artery [...] Following a series of exchanges, a 8 Turkmen sheath sheath was placed in the right femoralartery. A Guide and a 6 Turkmen Penumbra Select Serrano 2 catheter along with [...] system. Hemostasis was achieved using a 8 Turkmen Angio-Seal closure device. Hemostasis was immediate at [...] DATE/TIME OF EXAM: 11/05/2022 5:28 PM, LOCATION [facility] INDICATION: R50.9: Fever, unspecified fever cause [...] Report dictated by Mc Castro MD, (residential installer). Pepe Ornelas MD have personally reviewed and [...] DATE/TIME OF EXAM: 11/05/2022 9:38 AM, LOCATION [facility] INDICATION: R50.9: Fever, unspecified fever cause ADDITIONAL CLINICAL INFORMATION: Ordering Provider Reason For Exam: consolidation COMPARISON: Chest radiograph 10/29/2022. FINDINGS/IMPRESSION: Previously seen feeding tube has been removed. These no confluent consolidation, pleural effusion, or pneumothorax is noted. The cardiomediastinal silhouette is stable. No acute osseous abnormality is noted. Report dictated by Christopher Tobin MD, MD (residential installer). I, HEATHER FREGOSO MD have personally reviewed and interpreted this examination/study. > Interpreting Provider: HEATHER FREGOSO MD on 11/05/2022 2:[address] ABDOMEN WO CONTRAST Result Date: 11/02/2022 PROCEDURE: CT ABDOMEN WO CONTRAST, DATE/TIME OF EXAM: 2022 6:47 PM, LOCATION [facility] INDICATION: Z93.1: Presence of externally removable [...] > Dictated by Tim Major MD (residential installer). I, Pepe Gonzalez MD have personallyreviewed and interpreted this examination/study. > Interpreting Provider: Pepe Gonzalez MD on 11/02/2022 1:[address] ABDOMEN PELVIS W CONTRAST Result Date: 10/31/2022 PROCEDURE: CT ABDOMEN PELVIS W CONTRAST, DATE/TIME OF EXAM: 10/31/2022 10:16 AM, LOCATION [facility] INDICATION: I33.0: Aortic valve vegetation ADDITIONAL [...] DATE/TIME OF EXAM: 10/30/2022 8:22 PM, LOCATION: [facility] HISTORY: I63.511: Right middle cerebral artery [...] frontal gyrus/frontal operculum, consistent with an evolving cuznifoq-zs-vhbzhdh infarct. 4.No significant midline shift. Similar-appearing size and configuration of the ventricles without evidence of hydrocephalus. Basal cisterns are patent. 5.No other convincing change. Partially imaged left nasoenteric tube. > Interpreting Provider: Amanda Real MD, PhD on 10/31/2022 1:26 AM [facility] ANGIO TEAM Result Date: 10/30/2022 Fluoroscopy was used for this exam in the OR. Please see the Operative report. XR CHEST 1VW PORTABLE Result Date: 10/29/2022 PROCEDURE: XR CHEST 1VW PORTABLE, DATE/TIME OF EXAM: 10/29/2022 10:29 AM, LOCATION [facility] INDICATION: R09.02: Hypoxia ADDITIONAL CLINICAL INFORMATION: Ordering Provider Reason For Exam: evaluate for hypoxia COMPARISON: Chest x-ray from 10/27/2022 FINDINGS/IMPRESSION: Enteric tube is seen coursing over the diaphragm without visualization of the distal tip. There is no focal consolidation, pleural effusion, or pneumothorax. The cardiomediastinal silhouette is normal. Report dictated by Jacques Russell DO (residential installer). IJacques DO have personally reviewed and interpreted this examination/study. 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 Report dictated by Jacques Russell DO (residential installer). Jacques Ornelas DO have personally reviewed and interpreted this examination/study. 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 FINDINGS/IMPRESSION: Enteric tube courses below the diaphragm with the distal tip superimposing the antropyloric region. Report dictated by Martell Shetty MD (residential installer). Jacques Ornelas DO have personally reviewed and interpreted this examination/study. > Interpreting Provider: Jacques Cole DO on 10/28/2022 12:[address] HEAD WO CONTRAST Result Date: 10/28/2022 PROCEDURE: CT HEAD WO CONTRAST, DATE/TIME OF EXAM: 10/28/2022 5:28 AM, LOCATION [facility] INDICATION: Z91.89: At high risk for [...] is dictated by Kayla Stevenson MD (residential installer) 1 ILonnie MD have personally reviewed and interpreted this examination/study. > Interpreting Provider: Lonnie Rae MD on 10/28/2022 9:15 AM XR CHEST 1VW PORTABLE Result Date: 10/27/2022 PROCEDURE: XR CHEST 1VW PORTABLE, DATE/TIME OF EXAM: 10/27/2022 10:19 AM, LOCATION [facility] INDICATION: D72.829: Leukocytosis, unspecified type ADDITIONAL CLINICAL INFORMATION: Ordering Provider Reason For Exam: any concern for pneumonia COMPARISON: Chest radiograph dated 10/25/2022. FINDINGS/IMPRESSION: Enteric tube courses below the diaphragm and out of the jmcgi-ys-opyu. RUQ surgical clips are present. No focal consolidation. No pleural effusion or pneumothorax. The cardiomediastinal silhouette is normal. Report dictated by Agnes Olmos DO (residential installer). IPepe MD have personally reviewed and interpreted this examination/study. 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 Enteric tube courses below the diaphragm and out of the qrkly-px-lipa. There is severe left rotation of the patient in this study. There is no focal consolidation, pleural effusion, or pneumothorax. The left upper lobe pulmonary nodule noted on chest CT from same day is not visualized on this plain film. The cardiomediastinal silhouette is normal. The visible bony thorax is intact. Report dictated by Royer Stovall MD (residential installer). I, Alexx Lopez have personally reviewed and interpreted this examination/study. > Interpreting Provider: Alexx Lopez on 10/26/2022 2:[address] HEAD WO CONTRAST Result Date: 10/26/2022 PROCEDURE: CT HEAD WO CONTRAST, DATE/TIME OF EXAM: 10/26/2022 4:55 AM, LOCATION [facility] INDICATION: I63.511: Right middle cerebral artery [...] is dictated by Miranda Bowen MD (residential installer) I, Oriana Suarez MD have personally reviewed and interpreted this examination/study. > Interpreting Provider: Oriana Suarez MD on 38:[address] CHEST ABDOMEN PELVIS W CONT Result Date: 10/25/2022 PROCEDURE: CT CHEST ABDOMEN PELVIS W CONT, DATE/TIME OF EXAM: 10/25/2022 12:56 PM, LOCATION [facility] INDICATION: I63.511: Right middle cerebral [...] > Dictated by Clarisa Cantrell MD (residential installer). I, Alexx Lopez have personally reviewed and interpreted this examination/study. > Interpreting Provider: Alexx Lopez on 10/25/2022 4:[address] HEAD WO CONTRAST Result Date: 10/25/2022 PROCEDURE: CT HEAD WO CONTRAST, DATE/TIME OF EXAM: 10/25/2022 12:56 PM, LOCATION [facility] INDICATION: I63.511: Right middle cerebral artery [...] is dictated by Miranda Bowen MD (residential installer) I, Joni Fabian MD have personally reviewed and interpreted this examination/study. > Interpreting Provider: Joni Fabian MD on 10/25/2022 2:[address] CARDIAC ANGIO STRUCT MORPH Result Date: 10/25/2022 PROCEDURE: CT CARDIAC ANGIO STRUCT MORPH, DATE/TIME OF EXAM: 10/23/2022 3:08 PM, LOCATION [facility] INDICATION: I63.411: Acute cerebrovascular accident (CVA) [...] DATE/TIME OF EXAM: 10/24/2022 2:04 PM, LOCATION [facility] INDICATION: R47.1: Dysarthria ADDITIONAL CLINICAL INFORMATION: Ordering Provider ReasonFor Exam: ngt placement COMPARISON: Portable KUB dated 10/23/2022 FINDINGS/IMPRESSION: The enteric tube courses below the diaphragm with tip superimposing the gastric pyloric region. Drafted by Agnes Olmos DO (residential installer). I, Vanessa Kumar MD have personally reviewed and interpreted this examination/study. > Interpreting Provider: Vanessa Kumar MD on 10/24/2022 2:17 PM MRI BRAIN WWO CONTRAST Result Date: 10/24/2022 PROCEDURE: MRI BRAIN WWO CONTRAST, DATE/TIME OF EXAM: 10/24/2022 10:56 AM, LOCATION [facility] INDICATION: I63.411: Acute cerebrovascular accident (CVA) [...] right lateral ventricle, and approximately 3-4 mm xkslp-ys-ozpz midline shift at the level of the [...] right lateral ventricle, and approximately 3-4 mm xrbkw-mz-wiky midline shift, grossly similar to the prior. [...] Report dictated by Tim Major MD (residential installer). Jasper Ornelas MD have personally reviewed and interpreted this examination/study. > Interpreting Provider: Jasper Sifuentes MD on 10/24/2022 1:59 PM XR CHEST 1VW PORTABLE Result Date: 10/24/2022 PROCEDURE: XR CHEST 1VW PORTABLE, DATE/TIME OF EXAM: 10/23/2022 8:24 AM, LOCATION [facility] INDICATION: I63.511: Right middle cerebral artery stroke (CMS/HCC) ADDITIONAL CLINICAL INFORMATION: Ordering Provider Reason For Exam: OETT position COMPARISON: Chest radiograph dated 10/21/2022 FINDINGS/IMPRESSION: The enteric tube courses below the diaphragm out of the inferior uekrb-ff-zntm. Endotracheal tube terminates in the midthoracic trachea. There is no focal consolidation. No pleural effusion or pneumothorax. The cardiomediastinal silhouette is normal. No acute osseous abnormality. Report dictated by Agnes Olmos DO (residential installer). Vanessa Ornelas MD have personally reviewed and [...] DATE/TIME OF EXAM: 10/23/2022 1:53 PM, LOCATION [facility] INDICATION: R47.1: Dysarthria ADDITIONAL CLINICAL INFORMATION: Ordering Provider ReasonFor Exam: NGT placement COMPARISON: Portable KUB dated 10/20/2022 FINDINGS/IMPRESSION: The enteric tube courses below the diaphragm with tip superimposing the stomach. Drafted by Agnes Olmos DO (residential installer). I, Vanessa Kumar MD have personally reviewed and interpreted this examination/study. > Interpreting Provider: Vanessa Kumar MD on 10/24/2022 8:[address] HEAD WO CONTRAST Result Date: 10/23/2022 PROCEDURE: CT HEAD WO CONTRAST, DATE/TIME OF EXAM: 10/23/2022 5:53 AM, LOCATION [facility] INDICATION: I63.511: Right middle cerebral artery stroke ([facility]/HCC) ADDITIONAL CLINICAL INFORMATION: Ordering Provider Reason [...] report is dictated by Miranda Bowen MD(residential installer) IJasper MD have personally reviewed and interpreted this examination/study. > Interpreting Provider: Jasper Sifuentes MD on 10/23/2022 9:[address] HEAD WO CONTRAST Result Date: 10/22/2022 PROCEDURE: CT HEAD WO CONTRAST, DATE/TIME OF EXAM: 10/22/2022 5:35 AM, LOCATION [facility] INDICATION: I63.511: Right middle cerebral artery [...] hemorrhage. Report dictated by Lorenzo Horta MD (vice president sales). Lonnie Ornelas MD have personally reviewed and interpreted this examination/study. > Interpreting Provider: Lonnie Rae MD on 10/22/2022 3:10 PM XR CHEST 1VW PORTABLE Result Date: 10/21/2022 PROCEDURE: XR CHEST 1VW PORTABLE, DATE/TIME OF EXAM: 10/21/2022 8:53 AM, LOCATION [facility] INDICATION: R53.1: Weakness ADDITIONAL CLINICAL INFORMATION: [...] Report dictated by Christopher Tobin MD, (residential installer). HEATHER Ornelas MD have personally reviewed and [...] DATE/TIME OF EXAM: 10/20/2022 9:13 PM, LOCATION [facility] INDICATION: I63.411: Acute cerebrovascular accident (CVA) due to embolism of right middle cerebral artery (CMS/HCC) ADDITIONAL CLINICAL INFORMATION: Ordering Provider Reason For Exam: [facility] COMPARISON: Multiple prior studies, most recently [...] effacement, effacement of theright lateral ventricle, and rloum-at-zriz midline shift measuring up to 4 mm [...] prior. > Dictated by Bassam Jovel M.D. (vice president sales) Gonzalez Ornelas MD have personally reviewed [...] Report dictated by Royer Stovall MD (residential installer). Amanda Ornelas MD have personally reviewed and [...] DATE/TIME OF EXAM: 10/19/2022 8:16 AM, LOCATION [facility] INDICATION: Code Stroke ADDITIONAL CLINICAL INFORMATION: [...] DATE/TIME OF EXAM: 10/19/2022 8:04 AM, LOCATION [facility] INDICATION: Code Stroke ADDITIONAL CLINICAL INFORMATION: [...] Baig MD - 11/13/2022 2:12 PM CDT [facility] MEDICINE CONSULTATION Patient: Consuelo Darby Age: [age] year old Date of : 1980 Date of Admission: 10/19/2022 Date: 11/13/2022 Reason for consult: elevated liver enzymes Consult team: Neuro stroke HISTORY: I saw Ms. Consuelo Darby in consultation at [facility] on 11/13/2022 for evaluation of her [...] input(s): CKTOTAL, CKMB, TROPONINI in the last 80258 hours. Invalid input(s): CKMBINDEX Lipid Panel: Recent [...] Triana COTA - 11/13/2022 1:20 PM CDT [facility] Occupational Therapy Splint [...] splint re-applied. RN Radha richards. Treatment Plan: Testing Director education completed. and Will continue to monitor [...] 1 week after the last one (last Thursday) if symptoms persist. The rest of the care will be managed by the primary care team. Appreciate it. Carmina Ahumada MD General Surgery Resident, PGY1 11/13/2022 11:27 * Simi Johnson Tia Reyes, PT - 11/13/2022 10:25 AM CDT [facility] Physical Medicine and Rehabilitation Physical Therapy Progress Note Patient: Consuelo Darby Med Record Number: [id number] Date of : 1980 Age: [age] year [...] focus on posture and head/trunk alignment Modified [place]: Current Modified [place] Score: 5 AM-PAC 6 Clicks Mobility Raw [...] sit EOB x10 minutes with minimal assist Resolution Analyst Goal(s): Patient to discharge to appropriate next [...] MD - 11/13/2022 8:36 AM CDT [facility] Infectious Diseases Progress Note Date of Admission: 10/19/2022 7:53 AM Length of Stay: Day 25 Room: [facility] Attending: Good Antunez MD Subjective Since [...] Doxycycline 11/05 - present Prior Antibiotics At [facility] Cefazolin 10/20 Vancomycin 10/20; 10/25 - Ceftriaxone [...] DVT At this time most concerning for -IDENTIFICATION CLERK infection, MRI cannot rule out cerebritis/meningitis, needs [...] Liam Parks MD (PGY-5) Infectious Diseases Fellow [facility] Pager: [phone] ID Clinic Associated attestation - Gilberto Pastrana MD - 11/13/2022 5:57 PM CDT I have reviewed the record and independently examined the patient. I agree with the findings and plan of care as documented by the house painter. 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 - Fever: consulted ID, minen abx, Cxs. - MRI brain w/wo done [...] 2.5* 3.3 Recent Labs Component Name 11/13/22 02111/12/22 0532 11/11/22170210/23/22 0129 10/22/22 0153 WBC 2.7* 4.8 5.0 [...] Chin OT - 11/12/2022 3:59 PM CDT [facility] Occupational Therapy Splint [...] (38.1 ??C) Axillary 103 -- 96 % 11/11/22 2224 -- (!) 100.4 ??F (38 ??C) -- [...] results for input(s): MG in the last 94793 hours. Recent Labs Component Name 11/12/2253111/11/22170211/10/22222 PHOS 2.5* 3.3 3.9 Recent Labs Component Name 11/12/2253111/11/22235011/11/22170211/11/22 0928 11/10/22 2338 PT 22.1* - - 16.2* 15.6* INR 2.0 - - 1.3 1.3 PTT 102.7* 78.8* 140.8* 129.8* 36.3 No results for input(s): A1C in the last 68120 hours. Recent Labs Component Name 10/20/22 0302 06/15/22 0757 CHOL 173 204* HDL 42 37* LDLCALC 91 117* TRIG 201* 251* Recent Labs Component Name 11/06/22 0136 TSH 1.682 No results for input(s): CKMB, CKTOTAL, CKMB, TROPONINI, BNP in the last 12006 hours. MRI BRAIN WWO CONTRAST Result Date: 11/10/2022 PROCEDURE: MRI BRAIN WWO CONTRAST, DATE/TIME OF EXAM: 11/09/2022 11:51 PM, LOCATION [facility] INDICATION: R50.9: Fever, unspecified fever cause [...] of the right lateral ventricle and the ijcks-px-jvue midline shift. Extensive susceptibility artifacts along the [...] DATE/TIME OF EXAM: 11/07/2022 5:25 PM, LOCATION [facility] INDICATION: R50.9: Fever, unspecified fever cause [...] > Dictated by Tim Major MD (residential installer). I, Alexx Lopez have personally reviewed and [...] Time to Reperfusion: 9:54 Final TICI: 2b Administrative Fellow: Dr. Mitali Walter Supervisor Paper Products(s): Isak Monte Vessels: Ultrasound Guided Access of Femoral Artery Ultrasound Guided Access of Radial Artery Arterial line placement in the right radial artery Right Common Carotid Artery Angiogram: Cerebral Intracranial Catheterization Mechanical Thrombectomy with Retrievable Stent and Reperfusion Catheter Angiography Through the Existing Catheter Right Femoral Artery Angiogram Anesthesia: General Anesthesia was performed and monitored by an attending Anesthesiologist and their executive chef assistant throughout the entirety of the case [...] artery demonstrated a patent vessel. A 5 [place] citizen sheath was placed in the radial artery [...] Following a series of exchanges, a 8 Turkmen sheath sheath was placed in the right femoralartery. A Guide and a 6 Turkmen [employer] 2 catheter along with a [...] system. Hemostasis was achieved using a 8 Turkmen Angio-Seal closure device. Hemostasis was immediate at [...] DATE/TIME OF EXAM: 11/05/2022 5:28 PM, LOCATION [facility] INDICATION: R50.9: Fever, unspecified fever cause [...] Report dictated by Mc Castro MD, (residential installer). I, Pepe Gonzalez MD have personally reviewed [...] DATE/TIME OF EXAM: 11/05/2022 9:38 AM, LOCATION [facility] INDICATION: R50.9: Fever, unspecified fever cause ADDITIONAL CLINICAL INFORMATION: Ordering Provider Reason For Exam: consolidation COMPARISON: Chest radiograph 10/29/2022. FINDINGS/IMPRESSION: Previously seen feeding tube has been removed. These no confluent consolidation, pleural effusion, or pneumothorax is noted. The cardiomediastinal silhouette is stable. No acute osseous abnormality is noted. Report dictated by Christopher Tobin MD, MD (residential installer). I, HEATHER FREGOSO MD have personally reviewed and interpreted this examination/study. > Interpreting Provider: HEATHER FREGOSO MD on 11/05/2022 2:[address] ABDOMEN WO CONTRAST Result Date: 11/02/2022 PROCEDURE: CT ABDOMEN WO CONTRAST, DATE/TIME OF EXAM: 2022 6:47 PM, LOCATION [facility] INDICATION: Z93.1: Presence of externally removable [...] > Dictated by Tim Major MD (residential installer). I, Pepe Gonzalez MD have personallyreviewed and interpreted this examination/study. > Interpreting Provider: Pepe Gonzalez MD on 11/02/2022 1:[address] ABDOMEN PELVIS W CONTRAST Result Date: 10/31/2022 PROCEDURE: CT ABDOMEN PELVIS W CONTRAST, DATE/TIME OF EXAM: 10/31/2022 10:16 AM, LOCATION [facility] INDICATION: I33.0: Aortic valve vegetation ADDITIONAL [...] DATE/TIME OF EXAM: 10/30/2022 8:22 PM, LOCATION: [facility] HISTORY: I63.511: Right middle cerebral artery [...] frontal gyrus/frontal operculum, consistent with an evolving isewyowf-wu-nzsbsrb infarct. 4.No significant midline shift. Similar-appearing size [...] DATE/TIME OF EXAM: 10/29/2022 10:29 AM, LOCATION [facility] INDICATION: R09.02: Hypoxia ADDITIONAL CLINICAL INFORMATION: Ordering Provider Reason For Exam: evaluate for hypoxia COMPARISON: Chest x-ray from 10/27/2022 FINDINGS/IMPRESSION: Enteric tube is seen coursing over the diaphragm without visualization of the distal tip. There is no focal consolidation, pleural effusion, or pneumothorax. The cardiomediastinal silhouette is normal. Report dictated by Jacques Russell DO (residential installer). Jacques Ornelas DO have personally reviewed and interpreted this examination/study. 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 Report dictated by Jacques Russell DO (residential installer). Jacques Ornelas DO have personally reviewed and interpreted this examination/study. 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 FINDINGS/IMPRESSION: Enteric tube courses below the diaphragm with the distal tip superimposing the antropyloric region. Report dictated by Martell Shetty MD (residential installer). Jacques Ornelas DO have personally reviewed and interpreted this examination/study. > Interpreting Provider: Jacques Cole DO on 10/28/2022 12:[address] HEAD WO CONTRAST Result Date: 10/28/2022 PROCEDURE: CT HEAD WO CONTRAST, DATE/TIME OF EXAM: 10/28/2022 5:28 AM, LOCATION [facility] INDICATION: Z91.89: At high risk for [...] is dictated by Kayla Stevenson MD (residential installer) 1 I, Lonnie Rae MD have personally reviewed and interpreted this examination/study. > Interpreting Provider: Lonnie Rae MD on 10/28/2022 9:15 AM XR CHEST 1VW PORTABLE Result Date: 10/27/2022 PROCEDURE: XR CHEST 1VW PORTABLE, DATE/TIME OF EXAM: 10/27/2022 10:19 AM, LOCATION [facility] INDICATION: D72.829: Leukocytosis, unspecified type ADDITIONAL CLINICAL INFORMATION: Ordering Provider Reason For Exam: any concern for pneumonia COMPARISON: Chest radiograph dated 10/25/2022. FINDINGS/IMPRESSION: Enteric tube courses below the diaphragm and out of the nxpja-nr-ycoj. RUQ surgical clips are present. No focal consolidation. No pleural effusion or pneumothorax. The cardiomediastinal silhouette is normal. Report dictated by Agnes Olmos DO (residential installer). I, Pepe Gonzalez MD have personally reviewed and interpreted this examination/study. 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 Enteric tube courses below the diaphragm and out of the abndw-ww-dsjb. There is severe left rotation of the patient in this study. There is no focal consolidation, pleural effusion, or pneumothorax. The left upper lobe pulmonary nodule noted on chest CT from same day is not visualized on this plain film. The cardiomediastinal silhouette is normal. The visible bony thorax is intact. Report dictated by Royer Stovall MD (residential installer). I, Alexx Lopez have personally reviewed and interpreted this examination/study. > Interpreting Provider: Alexx Lopez on 10/26/2022 2:[address] HEAD WO CONTRAST Result Date: 10/26/2022 PROCEDURE: CT HEAD WO CONTRAST, DATE/TIME OF EXAM: 10/26/2022 4:55 AM, LOCATION [facility] INDICATION: I63.511: Right middle cerebral artery [...] is dictated by Miranda Bowen MD (residential installer) IOriana MD have personally reviewed and interpreted this examination/study. > Interpreting Provider: Oriana Suarez MD on 38:[address] CHEST ABDOMEN PELVIS W CONT Result Date: 10/25/2022 PROCEDURE: CT CHEST ABDOMEN PELVIS W CONT, DATE/TIME OF EXAM: 10/25/2022 12:56 PM, LOCATION [facility] INDICATION: I63.511: Right middle cerebral [...] > Dictated by Clarisa Cantrell MD (residential installer). I, Alexx Lopez have personally reviewed and interpreted this examination/study. > Interpreting Provider: Alexx Lopez on 10/25/2022 4:[address] HEAD WO CONTRAST Result Date: 10/25/2022 PROCEDURE: CT HEAD WO CONTRAST, DATE/TIME OF EXAM: 10/25/2022 12:56 PM, LOCATION [facility] INDICATION: I63.511: Right middle cerebral artery [...] is dictated by Miranda Bowen MD (residential installer) I, Joni Fabian MD have personally reviewed and interpreted this examination/study. > Interpreting Provider: Joni Fabian MD on 10/25/2022 2:[address] CARDIAC ANGIO STRUCT MORPH Result Date: 10/25/2022 PROCEDURE: CT CARDIAC ANGIO STRUCT MORPH, DATE/TIME OF EXAM: 10/23/2022 3:08 PM, LOCATION [facility] INDICATION: I63.411: Acute cerebrovascular accident (CVA) [...] DATE/TIME OF EXAM: 10/24/2022 2:04 PM, LOCATION [facility] INDICATION: R47.1: Dysarthria ADDITIONAL CLINICAL INFORMATION: Ordering Provider ReasonFor Exam: ngt placement COMPARISON: Portable KUB dated 10/23/2022 FINDINGS/IMPRESSION: The enteric tube courses below the diaphragm with tip superimposing the gastric pyloric region. Drafted by Agnes Olmos DO (residential installer). I, Vanessa Kumar MD have personally reviewed and interpreted this examination/study. > Interpreting Provider: Vanessa Kumar MD on 10/24/2022 2:17 PM MRI BRAIN WWO CONTRAST Result Date: 10/24/2022 PROCEDURE: MRI BRAIN WWO CONTRAST, DATE/TIME OF EXAM: 10/24/2022 10:56 AM, LOCATION [facility] INDICATION: I63.411: Acute cerebrovascular accident (CVA) [...] right lateral ventricle, and approximately 3-4 mm okexo-lo-mhpb midline shift at the level of the [...] right lateral ventricle, and approximately 3-4 mm rmcpi-nk-svpn midline shift, grossly similar to the prior. [...] Report dictated by Tim Major MD (residential installer). I, Jasper Sifuentes MD have personally reviewed and interpreted this examination/study. 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 Endotracheal tube terminates in the midthoracic trachea. There is no focal consolidation. No pleural effusion or pneumothorax. The cardiomediastinal silhouette is normal. No acute osseous abnormality. Report dictated by Agnes Olmos DO (residential installer). Vanessa Ornelas MD have personally reviewed and [...] DATE/TIME OF EXAM: 10/23/2022 1:53 PM, LOCATION [facility] INDICATION: R47.1: Dysarthria ADDITIONAL CLINICAL INFORMATION: Ordering Provider ReasonFor Exam: NGT placement COMPARISON: Portable KUB dated 10/20/2022 FINDINGS/IMPRESSION: The enteric tube courses below the diaphragm with tip superimposing the stomach. Drafted by Agnes Olmos DO (residential installer). Vanessa Ornelas MD have personally reviewed and interpreted this examination/study. > Interpreting Provider: Vanessa Kumar MD on 10/24/2022 8:[address] HEAD WO CONTRAST Result Date: 10/23/2022 PROCEDURE: CT HEAD WO CONTRAST, DATE/TIME OF EXAM: 10/23/2022 5:53 AM, LOCATION [facility] INDICATION: I63.511: Right middle cerebral artery stroke ([facility]/HCC) ADDITIONAL CLINICAL INFORMATION: Ordering Provider Reason [...] report is dictated by Miranda Bowen MD(residential installer) IJasper MD have personally reviewed and interpreted this examination/study. > Interpreting Provider: Jasper Sifuentes MD on 10/23/2022 9:[address] HEAD WO CONTRAST Result Date: 10/22/2022 PROCEDURE: CT HEAD WO CONTRAST, DATE/TIME OF EXAM: 10/22/2022 5:35 AM, LOCATION [facility] INDICATION: I63.511: Right middle cerebral artery [...] hemorrhage. Report dictated by Lorenzo Horta MD (vice president sales). ILonnie MD have personally reviewed and interpreted this examination/study. > Interpreting Provider: Lonnie Rae MD on 10/22/2022 3:10 PM XR CHEST 1VW PORTABLE Result Date: 10/21/2022 PROCEDURE: XR CHEST 1VW PORTABLE, DATE/TIME OF EXAM: 10/21/2022 8:53 AM, LOCATION [facility] INDICATION: R53.1: Weakness ADDITIONAL CLINICAL INFORMATION: [...] Report dictated by Christopher Tobin MD, (residential installer). HEATHER Ornelas MD have personally reviewed and [...] DATE/TIME OF EXAM: 10/20/2022 9:13 PM, LOCATION [facility] INDICATION: I63.411: Acute cerebrovascular accident (CVA) due to embolism of right middle cerebral artery (CMS/HCC) ADDITIONAL CLINICAL INFORMATION: Ordering Provider Reason For Exam: [facility] COMPARISON: Multiple prior studies, most recently [...] effacement, effacement of theright lateral ventricle, and imonv-op-ygud midline shift measuring up to 4 mm [...] prior. > Dictated by Bassam Jovel M.D. (vice president sales) I, Gonzalez Velasco MD have personally [...] Report dictated by Royer Stovall MD (residential installer). I, Amanda Prieto MD have personally reviewed [...] DATE/TIME OF EXAM: 10/19/2022 8:16 AM, LOCATION [facility] INDICATION: Code Stroke ADDITIONAL CLINICAL INFORMATION: [...] DATE/TIME OF EXAM: 10/19/2022 8:04 AM, LOCATION [facility] INDICATION: Code Stroke ADDITIONAL CLINICAL INFORMATION: [...] common femoral thrombectomy and patch angioplasty by [facility] surgery - Vascular Sx reconsulted for [...] occlusion s/p thrombectomy. - Fever: consulted ID, minen abx, Cxs. - MRI brain w/wo done [...] Cruz MD - 11/12/2022 7:47 AM CDT [facility] Infectious Diseases Progress Note Admitted on: 10/19/2022 7:53 AM Hospital stay: Room: [facility] Attending: Good Antunez MD Reason for [...] Puentes LABS CBC: Recent Labs Component Name 11/12/2253111/11/22170211/10/22 2338 10/23/22 0129 10/22/22 0153 WBC 4.8 5.0 7.1 - - RBC 3.27* 3.41* 3.22* - - HGB 9.4* 9.9* 9.5* - - HCT 30.2* 31.9* 29.7* - - MCV 92.4 93.5 92.2 - - PLT - - - - 199 - = values in this interval not displayed. BMP: Recent Labs Component Name 11/12/2253111/11/22170211/10/22 0223 11/09/22 0654 10/20/22 0302 10/19/22 0824 [...] LP with CSF analysis to eval of IDENTIFICATION CLERK infection, neurosurgery initially had less suspicion of IDENTIFICATION CLERK infection, LP was deferred. Discussed again today. [...] ??? S/p 10/20 with neurosurgery for R sided??eszebv-vbmwiat-cwpcqmuv??decompressive sonya-craniectomy??for??treatment of??refractory intracranial hypertension. 7. Renal function: [...] team. Angelica Cruz M.D. Infectious Diseases Pager [phone] * Ventura Zendejas Jr., PharmD - 11/12/2022 [...] 1.6 6 mg 11/09 1.6 6 mg 9/1 1.8 1.3 (post Kcentra) --- Dosing held [...] (36.4 ??C) -- 77 -- 97 % 11/11/227 121/70 -- -- 102 -- -- 11/11/22 0013 130/74 -- -- 100 -- 94 % 11/10/222340 126/68 -- -- 104 -- -- 11/10/222314 125/79 -- -- 107 -- -- 11/10/220 [...] results for input(s): MG in the last 11719 hours. Recent Labs Component Name 11/10/2222211/08/22234511/07/222233 PHOS 3.9 3.8 4.3 Recent Labs Component Name 11/11/22 0928 11/10/22 2338 11/10/22 0223 11/07/22 0305 11/06/22 2312 PT 16.2* 15.6* 20.5* - - INR 1.3 1.3 1.8 - - PTT 129.8* 36.3 - - 63.4* - = values in this interval not displayed. No results for input(s): A1C in the last 79971 hours. Recent Labs Component Name 10/20/22 0302 06/15/22 0757 CHOL 173 204* HDL 42 37* LDLCALC 91 117* TRIG 201* 251* Recent Labs Component Name 11/06/22 0136 TSH 1.682 No results for input(s): CKMB, CKTOTAL, CKMB, TROPONINI, BNP in the last 54753 hours. MRI BRAIN WWO CONTRAST Result Date: 11/10/2022 PROCEDURE: MRI BRAIN WWO CONTRAST, DATE/TIME OF EXAM: 11/09/2022 11:51 PM, LOCATION [facility] INDICATION: R50.9: Fever, unspecified fever cause [...] of the right lateral ventricle and the epdex-sx-eteo midline shift. Extensive susceptibility artifacts along the [...] DATE/TIME OF EXAM: 11/07/2022 5:25 PM, LOCATION [facility] INDICATION: R50.9: Fever, unspecified fever cause [...] > Dictated by Tim Major MD (residential installer). I, Alexx Lopez have personally reviewed and [...] Time to Reperfusion: 9:54 Final TICI: 2b Administrative Fellow: Dr. Mitali Walter Supervisor Paper Products(s): Isak Monte Vessels: Ultrasound Guided Access of Femoral Artery Ultrasound Guided Access of Radial Artery Arterial line placement in the right radial artery Right Common Carotid Artery Angiogram: Cerebral Intracranial Catheterization Mechanical Thrombectomy with Retrievable Stent and Reperfusion Catheter Angiography Through the Existing Catheter Right Femoral Artery Angiogram Anesthesia: General Anesthesia was performed and monitored by an attending Anesthesiologist and their executive chef assistant throughout the entirety of the case [...] artery demonstrated a patent vessel. A 5 [place] citizen sheath was placed in the radial artery [...] Following a series of exchanges, a 8 Turkmen sheath sheath was placed in the right femoralartery. A Guide and a 6 Turkmen Penumbra Select Serrano 2 catheter along with [...] system. Hemostasis was achieved using a 8 Turkmen Angio-Seal closure device. Hemostasis was immediate at [...] DATE/TIME OF EXAM: 11/05/2022 5:28 PM, LOCATION [facility] INDICATION: R50.9: Fever, unspecified fever cause [...] Report dictated by Mc Castro MD, (residential installer). I, Pepe Gonzalez MD have personally reviewed [...] DATE/TIME OF EXAM: 11/05/2022 9:38 AM, LOCATION [facility] INDICATION: R50.9: Fever, unspecified fever cause ADDITIONAL CLINICAL INFORMATION: Ordering Provider Reason For Exam: consolidation COMPARISON: Chest radiograph 10/29/2022. FINDINGS/IMPRESSION: Previously seen feeding tube has been removed. These no confluent consolidation, pleural effusion, or pneumothorax is noted. The cardiomediastinal silhouette is stable. No acute osseous abnormality is noted. Report dictated by Christopher Tobin MD, MD (residential installer). I, HEATHER FREGOSO MD have personally reviewed and interpreted this examination/study. > Interpreting Provider: HEATHER FREGOSO MDon 11/05/2022 2:[address] ABDOMEN WO CONTRAST Result Date: 11/02/2022 PROCEDURE: CT ABDOMEN WO CONTRAST, DATE/TIME OF EXAM: 2022 6:47 PM, LOCATION [facility] INDICATION: Z93.1: Presence of externally removable [...] > Dictated by Tim Major MD (residential installer). I, Pepe Gonzalez MD have personallyreviewed and interpreted this examination/study. > Interpreting Provider: Pepe Gonzalez MD on 11/02/2022 1:[address] ABDOMEN PELVIS W CONTRAST Result Date: 10/31/2022 PROCEDURE: CT ABDOMEN PELVIS W CONTRAST, DATE/TIME OF EXAM: 10/31/2022 10:16 AM, LOCATION [facility] INDICATION: I33.0: Aortic valve vegetation ADDITIONAL [...] DATE/TIME OF EXAM: 10/30/2022 8:22 PM, LOCATION: [facility] HISTORY: I63.511: Right middle cerebral artery [...] frontal gyrus/frontal operculum, consistent with an evolving goxjaxst-on-fxvfsix infarct. 4.No significant midline shift. Similar-appearing size and configuration of the ventricles without evidence of hydrocephalus. Basal cisterns are patent. 5.No other convincing change. Partially imaged left nasoenteric tube. > Interpreting Provider: Amanda Real MD, PhD on 10/31/2022 1:26 AM [facility] ANGIO TEAM Result Date: 10/30/2022 Fluoroscopy was used for this exam in the OR. Please see the Operative report. XR CHEST 1VW PORTABLE Result Date: 10/29/2022 PROCEDURE: XR CHEST 1VW PORTABLE, DATE/TIME OF EXAM: 10/29/2022 10:29 AM, LOCATION [facility] INDICATION: R09.02: Hypoxia ADDITIONAL CLINICAL INFORMATION: Ordering Provider Reason For Exam: evaluate for hypoxia COMPARISON: Chest x-ray from 10/27/2022 FINDINGS/IMPRESSION: Enteric tube is seen coursing over the diaphragm without visualization of the distal tip. There is no focal consolidation, pleural effusion, or pneumothorax. The cardiomediastinal silhouette is normal. Report dictated by Jacques Russell DO (residential installer). Jacques Ornelas DO have personally reviewed and interpreted this examination/study. 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 Report dictated by Jacques Russell DO (residential installer). Jacques Ornelas DO have personally reviewed and interpreted this examination/study. 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 FINDINGS/IMPRESSION: Enteric tube courses below the diaphragm with the distal tip superimposing the antropyloric region. Report dictated by Martell Shetty MD (residential installer). I, Jacques Cole DO have personally reviewed and interpreted this examination/study. > Interpreting Provider: Jacques Cole DO on 10/28/2022 12:[address] HEAD WO CONTRAST Result Date: 10/28/2022 PROCEDURE: CT HEAD WO CONTRAST, DATE/TIME OF EXAM: 10/28/2022 5:28 AM, LOCATION [facility] INDICATION: Z91.89: At high risk for [...] is dictated by Kayla Stevenson MD (residential installer) 1 ILonnie MD have personally reviewed and interpreted this examination/study. > Interpreting Provider: Lonnie Rae MD on 10/28/2022 9:15 AM XR CHEST 1VW PORTABLE Result Date: 10/27/2022 PROCEDURE: XR CHEST 1VW PORTABLE, DATE/TIME OF EXAM: 10/27/2022 10:19 AM, LOCATION [facility] INDICATION: D72.829: Leukocytosis, unspecified type ADDITIONAL CLINICAL INFORMATION: Ordering Provider Reason For Exam: any concern for pneumonia COMPARISON: Chest radiograph dated 10/25/2022. FINDINGS/IMPRESSION: Enteric tube courses below the diaphragm and out of the jhddj-nf-huie. RUQ surgical clips are present. No focal consolidation. No pleural effusion or pneumothorax. The cardiomediastinal silhouette is normal. Report dictated by Agnes Olmos DO (residential installer). I, Pepe Gonzalez MD have personally reviewed and interpreted this examination/study. > Interpreting Provider: Pepe Gonzalez MD on 10/27/2022 2:[address] HEAD WO CONTRAST Result Date: 10/27/2022 PROCEDURE: CT HEAD WO CONTRAST, DATE/TIME OF EXAM: 10/27/2022 5:54 AM, LOCATION [facility] INDICATION: I63.511: Right middle cerebral artery [...] DATE/TIME OF EXAM: 10/25/2022 9:41 AM, LOCATION [facility] INDICATION: I63.511: Right middle cerebral artery stroke ([facility]/HCC) ADDITIONAL CLINICAL INFORMATION: Ordering Provider Reason For Exam: Atlectasis/mucus plugging Comparison: Chest x-ray from10/23/2022, and CT chest, abdomen, pelvis from same day FINDINGS/IMPRESSION: Interval removal of theendotracheal tube. Enteric tube courses below the diaphragm and out of the fbkzl-ud-elfn. There is severe left rotation of the patient in this study. There is no focal consolidation, pleural effusion, or pneumothorax. The left upper lobe pulmonary nodule noted on chest CT from same day is not visualized on this plain film. The cardiomediastinal silhouette is normal. The visible bony thorax is intact. Report dictated by Royer Stovall MD (residential installer). IAlexx have personally reviewed and interpreted this examination/study. > Interpreting Provider: Alexx Lopez on 10/26/2022 2:[address] HEAD WO CONTRAST Result Date: 10/26/2022 PROCEDURE: CT HEAD WO CONTRAST, DATE/TIME OF EXAM: 10/26/2022 4:55 AM, LOCATION [facility] INDICATION: I63.511: Right middle cerebral artery stroke ([facility]/HCC) ADDITIONAL CLINICAL INFORMATION: Ordering Provider Reason [...] is dictated by Miranda Bowen MD (residential installer) I, Oriana Suarez MD have personally reviewed and interpreted this examination/study. > Interpreting Provider: Oriana Suarez MD on 38:[address] CHEST ABDOMEN PELVIS W CONT Result Date: 10/25/2022 PROCEDURE: CT CHEST ABDOMEN PELVIS W CONT, DATE/TIME OF EXAM: 10/25/2022 12:56 PM, LOCATION [facility] INDICATION: I63.511: Right middle cerebral [...] > Dictated by Clarisa Cantrell MD (residential installer). I, Alexx Lopez have personally reviewed and interpreted this examination/study. > Interpreting Provider: Alexx Lopez on 10/25/2022 4:[address] HEAD WO CONTRAST Result Date: 10/25/2022 PROCEDURE: CT HEAD WO CONTRAST, DATE/TIME OF EXAM: 10/25/2022 12:56 PM, LOCATION [facility] INDICATION: I63.511: Right middle cerebral artery [...] is dictated by Miranda Bowen MD (residential installer) I, Joni Fabian MD have personally reviewed and interpreted this examination/study. > Interpreting Provider: Joni Fabian MD on 10/25/2022 2:[address] CARDIAC ANGIO STRUCT MORPH Result Date: 10/25/2022 PROCEDURE: CT CARDIAC ANGIO STRUCT MORPH, DATE/TIME OF EXAM: 10/23/2022 3:08 PM, LOCATION [facility] INDICATION: I63.411: Acute cerebrovascular accident (CVA) [...] DATE/TIME OF EXAM: 10/24/2022 2:04 PM, LOCATION [facility] INDICATION: R47.1: Dysarthria ADDITIONAL CLINICAL INFORMATION: Ordering Provider ReasonFor Exam: ngt placement COMPARISON: Portable KUB dated 10/23/2022 FINDINGS/IMPRESSION: The enteric tube courses below the diaphragm with tip superimposing the gastric pyloric region. Drafted by Agnes Olmos DO (residential installer). I, Vanessa Kumar MD have personally reviewed and interpreted this examination/study. > Interpreting Provider: Vanessa Kumar MD on 10/24/2022 2:17 PM MRI BRAIN WWO CONTRAST Result Date: 10/24/2022 PROCEDURE: MRI BRAIN WWO CONTRAST, DATE/TIME OF EXAM: 10/24/2022 10:56 AM, LOCATION [facility] INDICATION: I63.411: Acute cerebrovascular accident (CVA) [...] right lateral ventricle, and approximately 3-4 mm ettdf-xj-wkly midline shift at the level of the [...] right lateral ventricle, and approximately 3-4 mm dtehb-sh-dqii midline shift, grossly similar to the prior. [...] Report dictated by Tim Major MD (residential installer). IJasper MD have personally reviewed and interpreted this examination/study. 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 Endotracheal tube terminates in the midthoracic trachea. There is no focal consolidation. No pleural effusion or pneumothorax. The cardiomediastinal silhouette is normal. No acute osseous abnormality. Report dictated by Agnes Olmos DO (residential installer). Vanessa Ornelas MD have personally reviewed and [...] DATE/TIME OF EXAM: 10/23/2022 1:53 PM, LOCATION [facility] INDICATION: R47.1: Dysarthria ADDITIONAL CLINICAL INFORMATION: Ordering Provider ReasonFor Exam: NGT placement COMPARISON: Portable KUB dated 10/20/2022 FINDINGS/IMPRESSION: The enteric tube courses below the diaphragm with tip superimposing the stomach. Drafted by Agnes Olmos DO (residential installer). Vanessa Ornelas MD have personally reviewed and interpreted this examination/study. > Interpreting Provider: Vanessa Kumar MD on 10/24/2022 8:[address] HEAD WO CONTRAST Result Date: 10/23/2022 PROCEDURE: CT HEAD WO CONTRAST, DATE/TIME OF EXAM: 10/23/2022 5:53 AM, LOCATION [facility] INDICATION: I63.511: Right middle cerebral artery [...] report is dictated by Miranda Bowen MD(residential installer) I, Jasper Sifuentes MD have personally reviewed and interpreted this examination/study. > Interpreting Provider: Jasper Sifuentes MD on 10/23/2022 9:[address] HEAD WO CONTRAST Result Date: 10/22/2022 PROCEDURE: CT HEAD WO CONTRAST, DATE/TIME OF EXAM: 10/22/2022 5:35 AM, LOCATION [facility] INDICATION: I63.511: Right middle cerebral artery [...] hemorrhage. Report dictated by Lorenzo Horta MD (vice president sales). ILonnie MD have personally reviewed and interpreted this examination/study. > Interpreting Provider: Lonnie Rae MD on 10/22/2022 3:10 PM XR CHEST 1VW PORTABLE Result Date: 10/21/2022 PROCEDURE: XR CHEST 1VW PORTABLE, DATE/TIME OF EXAM: 10/21/2022 8:53 AM, LOCATION [facility] INDICATION: R53.1: Weakness ADDITIONAL CLINICAL INFORMATION: [...] Report dictated by Christopher Tobin MD, (residential installer). IHEATHER MD have personally reviewed and interpreted [...] DATE/TIME OF EXAM: 10/20/2022 9:13 PM, LOCATION [facility] INDICATION: I63.411: Acute cerebrovascular accident (CVA) due to embolism of right middle cerebral artery (CMS/HCC) ADDITIONAL CLINICAL INFORMATION: Ordering Provider Reason For Exam: [facility] COMPARISON: Multiple prior studies, most recently [...] effacement, effacement of theright lateral ventricle, and nbyte-hl-nosx midline shift measuring up to 4 mm [...] prior. > Dictated by Bassam Jovel M.D. (vice president sales) I, Gonzalez Velasco MD have personally [...] Report dictated by Royer Stovall MD (residential installer). I, Amanda Prieto MD have personally reviewed [...] DATE/TIME OF EXAM: 10/19/2022 8:16 AM, LOCATION [facility] INDICATION: Code Stroke ADDITIONAL CLINICAL INFORMATION: [...] DATE/TIME OF EXAM: 10/19/2022 8:04 AM, LOCATION [facility] INDICATION: Code Stroke ADDITIONAL CLINICAL INFORMATION: [...] (PEG) tube (CMS/HCC) (POA: Unknown) Assessment Consuelo Stock Pjlubna??is a 41 year old??female who??presented on [...] 44 56 Coag Recent Labs Component Name 11/11/2292711/10/22233711/10/2222211/09/2223611/07/22 0305 11/06/22 2312 11/06/22 1830 PT 16.2* [...] Haleigh Narayan - 11/11/2022 12:00 PM CDT [facility] Occupational Therapy Spl[place] [...] > Dictated by Tim Major MD (residential installer). IAlexx have personally reviewed and interpreted this [...] Report dictated by Mc Castro MD, (residential installer). Pepe Ornelas MD have personally reviewed and [...] > Dictated by Tim Major MD (residential installer). Pepe Ornelas MD have personallyreviewed and interpreted [...] frontal gyrus/frontal operculum, consistent with an evolving oijkokqh-lz-rntlwlk infarct. 4.No significant midline shift. Similar-appearing size [...] is dictated by Kayla Stevenson MD (residential installer) 1 I, Lonnie Rae MD have personally [...] is dictated by Miranda Bowen MD (residential installer) Oriana Ornelas MD have personally reviewed and [...] > Dictated by Clarisa Cantrell MD (residential installer). IAlexx have personally reviewed and interpreted this [...] is dictated by Miranda Bowen MD (residential installer) Joni Ornelas MD have personally reviewed and [...] right lateral ventricle, and approximately 3-4 mm vlmcb-mr-drnh midline shift, grossly similar to the prior. [...] Report dictated by Tim Major MD (residential installer). Jasper Ornelas MD have personally reviewed and [...] report is dictated by Miranda Bowen MD(residential installer) Jasper Ornelas MD have personally reviewed and [...] hemorrhage. Report dictated by Lorenzo Horta MD (vice president sales). Ceci, Lonnie Rae MD have personally reviewed and [...] prior. > Dictated by Bassam Jovel M.D. (vice president sales) Gonzalez Ornelas MD have personally reviewed [...] on 10/19/2022 8:15 AM Procedure and Consults [facility] (From admission, onward) Start Ordered 11/10/22 [...] 10/28/22 0150 10/27/22 1745 IP CONSULT TO MOBILE THERAPIST ONCE Provider: (Not yet assigned) 10/27/22 1733 [...] 10/19/22 0902 10/19/22 0900 IP CONSULT TO MOBILE THERAPIST ONCE Provider: (Not yet assigned) 10/19/22 0902 10/19/22 0900 IP CONSULT TO CASE MANAGEMENT ONCE Provider: (Not yet assigned) 10/19/22 0902 10/19/22 0900 IP CONSULT TO NUTRITIONAL SERV ONCE Provider: (Not yet assigned) 10/19/22 0902 10/19/22 0900 CONSULT TO REHAB ONCE Provider: (Not yet assigned) 10/19/22 0902 10/19/22 0845 IR INTRACRANIAL MECH THROMBECT RAD ONE TIME 10/19/22 0843 10/19/22 0800 CONSULT TO CONCRETE VIBRATOR OPERATOR ONCE Provider: (Not yet assigned) 08/10/75510/19/[address] BRAIN - Stroke RAD ONE TIME 10/19/22 0756 10/19/[address] ANGIO BRAIN NECK STROKE RAD ONE [...] needle insertion. The externally removable 24 Fr Ramez-LOOKSIMA gastrostomy tube was lubricated. The G-tube was [...] non-darden portions. Procedure Code(s): --- Professional --- 70524, Esophagogastroduodenoscopy, flexible, transoral; with directed placement of percutaneous gastrostomy tube Diagnosis Code(s): --- Professional --- K44.9, Diaphragmatic hernia without obstruction or gangrene K29.60, Other gastritis without bleeding R13.12, Dysphagia, oropharyngeal phase R29.818, Other symptoms and signs involving the nervous system Z43.1, Encounter for attention to gastrostomy CPT copyright 2021 [employer]. All rights reserved. The codes documented in this report are preliminary and upon turbine blade assembler review may be revised to meet current compliance requirements. Khanh Metz MD 2022 3:26:58 PM Note Initiated On: 2022 2:14 PM Number of Addenda: [address] [id number] 08/25/2021 Final _ Patient Name: Consuelo Darby Procedure Date: 08/25/2021 9:58 AM Date of : 1980 Admit Type: Outpatient Age: 40 Room: ROOM 1 Gender: Female Attending MD: Sathya Foster MD _ Procedure: Colonoscopy Indications: High risk colon cancer surveillance: Personal history of colonic polyps, Last colonoscopy: 2011 Providers: Sathya Foster MD, Tia Rico RN, Zeinab Marina RN, Aminata Cain, CORY (Anesthesia Staff) Medicines: Propofol per Anesthesia Complications: [...] the patient. Procedure Code(s): --- Professional --- 94106, Colonoscopy, flexible; with biopsy, single or multiple --- Technical --- 70789, Colonoscopy, flexible; with biopsy, single or multiple Diagnosis Code(s): --- Professional --- Z86.010, Personal history of colonic polyps K63.5, Polyp of colon K57.30, Diverticulosis of large intestine without perforation or abscess without bleeding --- Technical --- Z86.010, Personal history of colonic polyps K63.5, Polyp of colon K57.30, Diverticulosis of large intestine without perforation or abscess without bleeding CPT copyright 2019 [employer]. All rights reserved. The codes documented in this report are preliminary and upon turbine blade assembler review may be revised to meet current [...] PGY IV Division of Gastroenterology and Hepatology [facility] Associated attestation - Carlos West MD - 11/11/2022 3:54 PM CDT I have seen and examined the patient with the Fellow and I agree with the findings and plan of careas documented by the Fellow. Continue antibiotics per ID recommendations Carlos West MD PhD infection control manager Director, Division of Gastroenterology and Hepatology Co-Director, [facility] * Good Antunez MD - [...] 126/64 11/10/222104 -- (!) 116 20 126/64 11/10/22 2100 -- (!) 113 (!) 33 129/58 11/10/222054 99.4 ??F (37.4 ??C) (!) 114 26 136/41 11/10/22 1855 -- 105 21 117/69 11/10/22 1841 -- 102 18 -- 11/10/22 1839 (!) 102 ??F (38.9 ??C) 105 20 115/59 11/10/22 1501 98.7 ??F (37.1 ??C) 104 -- 119/69 11/10/22 1222 (!) 100.3 ??F (37.9 ??C) (!) 110 -- 129/51 11/10/22 0933 -- 95 -- -- 11/10/22 0854 97.4 ??F (36.3 ??C) 97 -- 103/53 Recent Labs Component Name 11/10/2222211/08/22234511/07/222233 NA 136 141 141 CL 105 107 108* CO2 24 24 22 BUN 13 9 8 CREATININE 0.52* 0.45* 0.53* CALCIUM 8.4 8.5 8.6 PHOS 3.9 3.8 4.3 Recent Labs Component Name 11/10/22233711/10/2222311/08/22234510/23/2210/22/23 0153 WBC 7.1 3.6 5.2 - - [...] Wyman, PT - 11/11/2022 8:29 AM CDT [facility] Department of Physical Medicine & Rehabilitation Progress Note Patient: Consuelo Darby [facility] Record Number: [id number] Date of : 1980 Age: [age] year old 11/11/22 0829 Therapy on Hold Therapy on Hold Surgery;New Order Required for Therapy * Haleigh Narayan - 11/11/2022 8:07 AM CDT 11/11/22 0800 Therapy on Hold Therapy on Hold Surgery;New Order Required for Therapy * Shania Arce SLP - 11/11/2022 7:43 AM CDT [facility] Department of Physical Medicine & Rehabilitation Progress Note Patient: Consuelo Darby [facility] Record Number: [id number] Date of : 1980 Age: [age] year old 11/11/22 0700 Therapy on Hold Therapy on Hold Surgery;New Order Required for Therapy Barb Lopes MS [facility]-FIXED CAPITAL CLERK Speech Language Pathologist * Maicol Quiroz DO [...] Troy OT - 11/10/2022 3:30 PM CDT [facility] Physical Medicine and Rehabilitation Occupational Therapy Progress Note Patient: Consuelo Darby Med Record Number: [id number] Date of : 1980 Age: [age] year old PPE worn by staff: gloves;mask - cardiovascular surgical tech: Cheli Recommendations: Discharge OT Discharge Recommendations: Patient [...] Appearance: Pt in bed upon arrival in [facility], sister present in room during [...] skin integrity intact. 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 Personally discussed with neurology team, they [...] S/p 10/20 with neurosurgery for R sided jwqwdw-ttwpeom-gyvizqks decompressive sonya-craniectomy for treatment of refractory intracranial hypertension. Transaminitis. Renal function: Estimated Creatinine Clearance: 161 mL/min (A) (by C-G formula based on SCr of 0.52mg/dL (L)). Plan/Recommendations: - Start metronidazole. Continue IV vancomycin, cefepime and doxycycline. - Follow blood cultures until final - Consider LP with CSF analysis to eval of IDENTIFICATION CLERK infection. - Monitor right groin change. If [...] RESPIRATORY PANEL WITH SARS-COV-2 BY PCR ([facility]) [[id number]] (Normal) Collected: 11/05/22 1310 Lab Status: Final [...] via the [place] Pathway. CULTURE URINE [[id number]] (Normal) Collected: 11/05/22 1307 Lab Status: Final result Specimen: Urine Cath Straight Updated: 11/06/22 1617 Culture Urine No growth (<100 CFU/mL) CULTURE BLOOD [[id number]] (Normal) Collected: 11/05/22 1054 Lab Status: Final result Specimen: Blood Peripheral Updated: 11/10/22 1400 Culture No growth day 5 CULTURE URINE [[id number]] (Normal) Collected: 10/27/22 1208 Lab Status: Final result Specimen: Urine Clean Catch Updated: 10/28/22 2236 Culture Urine No growth (<100 CFU/mL) CULTURE BLOOD FUNGUS [[id number]] (Normal) Collected: 10/27/22 1158 Lab Status: Preliminary result Specimen: Blood Peripheral Updated: 11/06/22 0848 Culture No fungus isolated CULTURE BLOOD AFB [[id number]] (Normal) Collected: 10/27/22 1158 Lab Status: Preliminary result Specimen: Blood Peripheral Updated: 11/06/22 1135 Culture No acid-fast bacillus isolated BARTONELLA SPECIES PCR [[id number]] Collected: 10/27/22 1158 Lab Status: Final result [...] developed and its performance characteristics determined by [facility]. It has not been cleared or approved by the US Food and Drug Administration. This test was performed in a CLIA certified laboratory and is intended for clinical purposes. Performed By: [facility] [address] [place] [address] [employer] Supervisor: Boo Bond MD, PhD CLIA Number: [id number] CULTURE BLOOD [[id number]] (Normal) Collected: 10/25/22 0900 Lab Status: Final result Specimen: Blood Peripheral Updated: 10/30/22 1330 Culture No growth day 5 CULTURE BLOOD [[id number]] (Normal) Collected: 10/24/22 1313 Lab Status: Final result Specimen: Blood Peripheral Updated: 10/29/22 1632 Culture No growth day 5 MRSA DNA PCR [[id number]] (Normal) Collected: 10/23/22 1234 Lab Status: Final result Specimen: Microbiology from Nasal Updated: 10/23/22 2044 MRSA DNA by PCR Not detected Narrative: Methicillin-resistant Staphylococcus aureus (MRSA) DNA is not detected (presumed not colonized withMRSA). CULTURE BLOOD [[id number]] (Normal) Collected: 10/23/22 1216 Lab Status: Final result Specimen: Blood Peripheral Updated: 10/28/22 1702 Culture No growth day 5 CULTURE BLOOD [[id number]] (Normal) Collected: 10/23/22 1205 Lab Status: Final [...] presence of the primary team staff, residents, PT/OT/FIXED CAPITAL CLERK and CM/SW. Jaime Drew MD Vascular and [...] Fernandes SLP - 11/10/2022 1:45 PM CDT [facility] Department of Physical Medicine & Rehabilitation Progress Note Patient: Consuelo Darby Med Record Number: [id number] Date of : 1980 Age: [age] year old 11/10/22 1300 Missed Visit Missed Visit Other (Comment) Attempted 2x to see patient for dysphagia tx, patient working with other therapy disciplines. ST will continue to follow * Maria Luisa Scott APRN-BALANCE SCREWHEAD POLISHER - 11/10/2022 12:07 PM CDT Puentes Placement [...] uretheral opening 3 separate times. A 16 Turkmen Silicone puentes catheter was covered with sterile [...] catheter. Please reference table below. Level Puentes Hamlin Sample Patient 1 Teaching Puentes (i.e. Medical student, Tech, RN) - Female without urologic history 2 Registered Nurse, Any Physician, Any Advanced Practitioner - Male >65 yo 3 Charge or Experienced Nurse, Urology WILLOW MACHINE OPERATOR, Urologist - Multiple failed attempts [...] Vegas, PT - 11/10/2022 10:05 AM CDT [facility] Physical Medicine and Rehabilitation Physical Therapy Progress Note Patient: Consuelo Darby Med Record Number: [id number] Date of : 1980 Age: [age] year [...] treatment using a 'yes' head nod. Patient's iqjtol-qo-wbc present and provides positive encouragement to patient [...] Steady, sitting and standing balance training Modified [place]: Current Modified [place]den Score: 5 AM-PAC 6 Clicks Mobility Raw [...] EOB x10 minutes with minimal assist ?? Resolution Analyst Goal(s): Patient to discharge to appropriate next [...] Rehab Facility: Anticipated level of care provider: [facility] ([facility]): Anticipated Discharge Date: 11/13/22: Discharge Plan: [facility] Rehab once medically ready. Orientation Level: Oriented X4: Family Support (Name and Phone): Extended Emergency Contact Information Primary Emergency Contact: Hi Darby Address: [address] [place] [address] [place] [address] [facility] Relation: Spouse Secondary Emergency Contact: Sandra Disla [facility] Mobile Relation: Mother Transportation at Discharge: [...] alert Labs: Recent Labs Component Name 11/10/224 11/10/2222211/09/22 0237 11/08/22 2346 11/08/22 0254 [...] > Dictated by Tim Major MD (residential installer). I, Alexx Lopez have personally reviewed and interpreted this examination/study. > Interpreting Provider: Alexx Lopez on 11/07/2022 10:30 PM XR ABDOMEN KUB PORTABLE Result Date: 11/06/2022 IMPRESSION: Non-obstructive bowel gas pattern. Report dictated by Mc Castro MD, (residential installer). I, Pepe Gonzalez MD have personally reviewed [...] to rule out progression April Quintana MD Retail Sales Managerinfection control manager at [facility] Baker Operator Automatic and Advanced Endoscopist Division of Gastroenterology & [...] bilaterally ?? Labs: Recent Labs Component Name 11/10/2222311/08/226 11/07/22 2234 10/23/22 0129 10/22/22 0153 WBC [...] results for input(s): MG in the last 56887 hours. Recent Labs Component Name 11/10/2222211/08/22234511/07/222233 PHOS [...] results for input(s): A1C in the last 78202 hours. Recent Labs Component Name 10/20/22 0302 06/15/22 0757 CHOL 173 204* HDL 42 37* LDLCALC 91 117* TRIG 201* 251* Recent Labs Component Name 11/06/22 0136 TSH 1.682 No results for input(s): CKMB, CKTOTAL, CKMB, TROPONINI, BNP in the last [address] ABDOMEN PELVIS W CONTRAST Result [...] measuring 2.2 cm. Findings communicated with Dr. oGyal at 2005 hours on 11/09/2022 > Interpreting Provider: Pepe Gonzalez MD on 11/10/2022 12:[address] ANGIO CHEST PULM EMBOLISM Result Date: 11/07/2022 PROCEDURE: CT ANGIO CHEST PULM EMBOLISM, DATE/TIME OF EXAM: 11/07/2022 5:25 PM, LOCATION [facility] INDICATION: R50.9: Fever, unspecified fever cause [...] > Dictated by Tim Major MD (residential installer). I, Alexx Lopez have personally reviewed and [...] Time to Reperfusion: 9:54 Final TICI: 2b Administrative Fellow: Dr. Mitali Walter Supervisor Paper Products(s): Isak Monte Vessels: Ultrasound Guided Access of Femoral Artery Ultrasound Guided Access of Radial Artery Arterial line placement in the right radial artery Right Common Carotid Artery Angiogram: Cerebral Intracranial Catheterization Mechanical Thrombectomy with Retrievable Stent and Reperfusion Catheter Angiography Through the Existing Catheter Right Femoral Artery Angiogram Anesthesia: General Anesthesia was performed and monitored by an attending Anesthesiologist and their executive chef assistant throughout the entirety of the case [...] artery demonstrated a patent vessel. A 5 v[place] citizen sheath was placed in the radial artery [...] Following a series of exchanges, a 8 Turkmen sheath sheath was placed in the right femoral artery. A Guide and a 6 Turkmen [employer] 2 catheter along with a [...] 6mm x 40mm Solitaire retrievable stent was deployed.The microcatheter was then removed from the arterial [...] system. Hemostasis was achieved using a 8 Turkmen Angio-Seal closure device. Hemostasis was immediate at [...] DATE/TIME OF EXAM: 11/05/2022 5:28 PM, LOCATION [facility] INDICATION: R50.9: Fever, unspecified fever cause [...] Report dictated by Mc Castro MD, (residential installer). Pepe Ornelas MD have personally reviewed and [...] DATE/TIME OF EXAM: 11/05/2022 9:38 AM, LOCATION [facility] INDICATION: R50.9: Fever, unspecified fever cause ADDITIONAL CLINICAL INFORMATION: Ordering Provider Reason For Exam: consolidation COMPARISON: Chest radiograph 10/29/2022. FINDINGS/IMPRESSION: Previously seen feeding tube has been removed. These no confluent consolidation, pleural effusion, or pneumothorax is noted. The cardiomediastinal silhouette is stable. No acute osseous abnormality is noted. Report dictated by Christopher Tobin MD, (residential installer). I, HEATHER FREGOSO MD have personally reviewed and interpreted this examination/study. > Interpreting Provider: HEATHER FREGOSO MD on 11/05/2022 2:[address] ABDOMEN WO CONTRAST Result Date: 11/02/2022 PROCEDURE: CT ABDOMEN WO CONTRAST, DATE/TIME OF EXAM: 2022 6:47 PM, LOCATION [facility] INDICATION: Z93.1: Presence of externally removable [...] > Dictated by Tim Major MD (residential installer). I, Pepe Gonzalez MD have personallyreviewed and interpreted this examination/study. > Interpreting Provider: Pepe Gonzalez MD on 11/02/2022 1:[address] ABDOMEN PELVIS W CONTRAST Result Date: 10/31/2022 PROCEDURE: CT ABDOMEN PELVIS W CONTRAST, DATE/TIME OF EXAM: 10/31/2022 10:16 AM, LOCATION [facility] INDICATION: I33.0: Aortic valve vegetation ADDITIONAL [...] DATE/TIME OF EXAM: 10/30/2022 8:22 PM, LOCATION: [facility] HISTORY: I63.511: Right middle cerebral artery [...] frontal gyrus/frontal operculum, consistent with an evolving mzanxwbo-ad-qfgsygi infarct. 4.No significant midline shift. Similar-appearing size and configuration of the ventricles without evidence of hydrocephalus. Basal cisterns are patent. 5.No other convincing change. Partially imaged left nasoenteric tube. > Interpreting Provider: Amanda Real MD, PhD on 10/31/2022 1:26 AM [facility] ANGIO TEAM Result Date: 10/30/2022 Fluoroscopy was used for this exam in the OR. Please see the Operative report. XR CHEST 1VW PORTABLE Result Date: 10/29/2022 PROCEDURE: XR CHEST 1VW PORTABLE, DATE/TIME OF EXAM: 10/29/2022 10:29 AM, LOCATION [facility] INDICATION: R09.02: Hypoxia ADDITIONAL CLINICAL INFORMATION: Ordering Provider Reason For Exam: evaluate for hypoxia COMPARISON: Chest x-ray from 10/27/2022 FINDINGS/IMPRESSION: Enteric tube is seen coursing over the diaphragm without visualization of the distal tip. There is no focal consolidation, pleural effusion, or pneumothorax. The cardiomediastinal silhouette is normal. Report dictated by Jacques Russell DO (residential installer). I, Jacques Cole DO have personally reviewed and interpreted this examination/study. 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 Report dictated by Jacques Russell DO (residential installer). Jacques Ornelas DO have personally reviewed and interpreted this examination/study. 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 FINDINGS/IMPRESSION: Enteric tube courses below the diaphragm with the distal tip superimposing the antropyloric region. Report dictated by Martell Shetty MD (residential installer). Jacques Ornelas DO have personally reviewed and interpreted this examination/study. > Interpreting Provider: Jacques Cole DO on 10/28/2022 12:[address] HEAD WO CONTRAST Result Date: 10/28/2022 PROCEDURE: CT HEAD WO CONTRAST, DATE/TIME OF EXAM: 10/28/2022 5:28 AM, LOCATION [facility] INDICATION: Z91.89: At high risk for [...] is dictated by Kayla Stevenson MD (residential installer) 1 I, Lonnie Rae MD have personally reviewed and interpreted this examination/study. > Interpreting Provider: Lonnie Rae MD on 10/28/2022 9:15 AM XR CHEST 1VW PORTABLE Result Date: 10/27/2022 PROCEDURE: XR CHEST 1VW PORTABLE, DATE/TIME OF EXAM: 10/27/2022 10:19 AM, LOCATION [facility] INDICATION: D72.829: Leukocytosis, unspecified type ADDITIONAL CLINICAL INFORMATION: Ordering Provider Reason For Exam: any concern for pneumonia COMPARISON: Chest radiograph dated 10/25/2022. FINDINGS/IMPRESSION: Enteric tube courses below the diaphragm and out of the gnqdd-wo-iwgf. RUQ surgical clips are present. No focal consolidation. No pleural effusion or pneumothorax. The cardiomediastinal silhouette is normal. Report dictated by Agnes Olmos DO (residential installer). I, Pepe Gonzalez MD have personally reviewed and interpreted this examination/study. 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 Enteric tube courses below the diaphragm and out of the gxwxg-zf-dbgx. There is severe left rotation of the patient in this study. There is no focal consolidation, pleural effusion, or pneumothorax. The left upper lobe pulmonary nodule noted on chest CT from same day is not visualized on this plain film. The cardiomediastinal silhouette is normal. The visible bony thorax is intact. Report dictated by Royer Stovall MD (residential installer). I, Alexx Lopez have personally reviewed and interpreted this examination/study. > Interpreting Provider: Alexx Lopez on 10/26/2022 2:[address] HEAD WO CONTRAST Result Date: 10/26/2022 PROCEDURE: CT HEAD WO CONTRAST, DATE/TIME OF EXAM: 10/26/2022 4:55 AM, LOCATION [facility] INDICATION: I63.511: Right middle cerebral artery [...] is dictated by Miranda Bowen MD (residential installer) I, Oriana Suarez MD have personally reviewed and interpreted this examination/study. > Interpreting Provider: Oriana Suarez MD on 38:[address] CHEST ABDOMEN PELVIS W CONT Result Date: 10/25/2022 PROCEDURE: CT CHEST ABDOMEN PELVIS W CONT, DATE/TIME OF EXAM: 10/25/2022 12:56 PM, LOCATION [facility] INDICATION: I63.511: Right middle cerebral [...] > Dictated by Clarisa Cantrell MD (residential installer). I, Alexx Lopez have personally reviewed and interpreted this examination/study. > Interpreting Provider: Alexx Lopez on 10/25/2022 4:[address] HEAD WO CONTRAST Result Date: 10/25/2022 PROCEDURE: CT HEAD WO CONTRAST, DATE/TIME OF EXAM: 10/25/2022 12:56 PM, LOCATION [facility] INDICATION: I63.511: Right middle cerebral artery [...] is dictated by Miranda Bowen MD (residential installer) I, Joni Fabian MD have personally reviewed and interpreted this examination/study. > Interpreting Provider: Joni Fabian MD on 10/25/2022 2:[address] CARDIAC ANGIO STRUCT MORPH Result Date: 10/25/2022 PROCEDURE: CT CARDIAC ANGIO STRUCT MORPH, DATE/TIME OF EXAM: 10/23/2022 3:08 PM, LOCATION [facility] INDICATION: I63.411: Acute cerebrovascular accident (CVA) [...] DATE/TIME OF EXAM: 10/24/2022 2:04 PM, LOCATION [facility] INDICATION: R47.1: Dysarthria ADDITIONAL CLINICAL INFORMATION: Ordering Provider ReasonFor Exam: ngt placement COMPARISON: Portable KUB dated 10/23/2022 FINDINGS/IMPRESSION: The enteric tube courses below the diaphragm with tip superimposing the gastric pyloric region. Drafted by Agnes Olmos DO (residential installer). I, Vanessa Kumar MD have personally reviewed and interpreted this examination/study. > Interpreting Provider: Vanessa Kumar MD on 10/24/2022 2:17 PM MRI BRAIN WWO CONTRAST Result Date: 10/24/2022 PROCEDURE: MRI BRAIN WWO CONTRAST, DATE/TIME OF EXAM: 10/24/2022 10:56 AM, LOCATION [facility] INDICATION: I63.411: Acute cerebrovascular accident (CVA) [...] right lateral ventricle, and approximately 3-4 mm ssmmj-wk-gejf midline shift at the level of the [...] right lateral ventricle, and approximately 3-4 mm qfjld-pr-dezv midline shift, grossly similar to the prior. [...] Report dictated by Tim Major MD (residential installer). Jasper Ornelas MD have personally reviewed and interpreted this examination/study. 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 Endotracheal tube terminates in the midthoracic trachea. There is no focal consolidation. No pleural effusion or pneumothorax. The cardiomediastinal silhouette is normal. No acute osseous abnormality. Report dictated by Agnes Olmos DO (residential installer). Vanessa Ornelas MD have personally reviewed and [...] DATE/TIME OF EXAM: 10/23/2022 1:53 PM, LOCATION [facility] INDICATION: R47.1: Dysarthria ADDITIONAL CLINICAL INFORMATION: Ordering Provider ReasonFor Exam: NGT placement COMPARISON: Portable KUB dated 10/20/2022 FINDINGS/IMPRESSION: The enteric tube courses below the diaphragm with tip superimposing the stomach. Drafted by Agnes Olmos DO (residential installer). I, Vanessa Kumar MD have personally reviewed and interpreted this examination/study. > Interpreting Provider: Vanessa Kumar MD on 10/24/2022 8:[address] HEAD WO CONTRAST Result Date: 10/23/2022 PROCEDURE: CT HEAD WO CONTRAST, DATE/TIME OF EXAM: 10/23/2022 5:53 AM, LOCATION [facility] INDICATION: I63.511: Right middle cerebral artery [...] report is dictated by Miranda Bowen MD(residential installer) IJasper MD have personally reviewed and interpreted this examination/study. > Interpreting Provider: Jasper Sifuentes MD on 10/23/2022 9:[address] HEAD WO CONTRAST Result Date: 10/22/2022 PROCEDURE: CT HEAD WO CONTRAST, DATE/TIME OF EXAM: 10/22/2022 5:35 AM, LOCATION [facility] INDICATION: I63.511: Right middle cerebral artery [...] hemorrhage. Report dictated by Lorenzo Horta MD (vice president sales). I, Lonnie Rae MD have personally reviewed and interpreted this examination/study. > Interpreting Provider: Lonnie Rae MD on 10/22/2022 3:10 PM XR CHEST 1VW PORTABLE Result Date: 10/21/2022 PROCEDURE: XR CHEST 1VW PORTABLE, DATE/TIME OF EXAM: 10/21/2022 8:53 AM, LOCATION [facility] INDICATION: R53.1: Weakness ADDITIONAL CLINICAL INFORMATION: [...] dictated by Christopher Tobin MD, MD (residential installer). I, HEATHER FREGOSO MD have personally reviewed [...] DATE/TIME OF EXAM: 10/20/2022 9:13 PM, LOCATION [facility] INDICATION: I63.411: Acute cerebrovascular accident (CVA) due to embolism of right middle cerebral artery (CMS/HCC) ADDITIONAL CLINICAL INFORMATION: Ordering Provider Reason For Exam: [facility] COMPARISON: Multiple prior studies, most recently [...] effacement, effacement of theright lateral ventricle, and nxfey-ey-htrc midline shift measuring up to 4 mm [...] prior. > Dictated by Bassam Jovel M.D. (vice president sales) Gonzalez Ornelas MD have personally reviewed [...] Report dictated by Royer Stovall MD (residential installer). Amanda Ornelas MD have personally reviewed and [...] DATE/TIME OF EXAM: 10/19/2022 8:16 AM, LOCATION [facility] INDICATION: Code Stroke ADDITIONAL CLINICAL INFORMATION: [...] DATE/TIME OF EXAM: 10/19/2022 8:04 AM, LOCATION [facility] INDICATION: Code Stroke ADDITIONAL CLINICAL INFORMATION: [...] RESPIRATORY PANEL WITH SARS-COV-2 BY PCR ([facility]) [[id number]] (Normal) Collected: 11/05/22 1310 Lab Status: Final [...] via the [place] Pathway. CULTURE URINE [[id number]] (Normal) Collected: 11/05/22 1307 Lab Status: Final result Specimen: Urine Cath Straight Updated: 11/06/22 1617 Culture Urine No growth (<100 CFU/mL) CULTURE BLOOD [[id number]] (Normal) Collected: 11/05/22 1054 Lab Status: Preliminary result Specimen: Blood Peripheral Updated: 11/07/22 1401 Culture No growth CULTURE URINE [[id number]] (Normal) Collected: 10/27/22 1208 Lab Status: Final result Specimen: Urine Clean Catch Updated: 10/28/22 2236 Culture Urine No growth (<100 CFU/mL) CULTURE BLOOD FUNGUS [[id number]] (Normal) Collected: 10/27/22 1158 Lab Status: Preliminary result Specimen: Blood Peripheral Updated: 11/06/22 0848 Culture No fungus isolated CULTURE BLOOD AFB [[id number]] (Normal) Collected: 10/27/22 1158 Lab Status: Preliminary result Specimen: Blood Peripheral Updated: 11/06/22 1135 Culture No acid-fast bacillus isolated BARTONELLA SPECIES PCR [[id number]] Collected: 10/27/22 1158 Lab Status: Final result [...] developed and its performance characteristics determined by [facility]. It has not been cleared or approved by the US Food and Drug Administration. This test was performed in a CLIA certified laboratory and is intended for clinical purposes. Performed By: [facility] [address] [place] [address] [employer] Supervisor: Boo Bond MD, PhD CLIA Number: [id number] CULTURE BLOOD [[id number]] (Normal) Collected: 10/25/22 0900 Lab Status: Final result Specimen: Blood Peripheral Updated: 10/30/22 1330 Culture No growth day 5 CULTURE BLOOD [[id number]] (Normal) Collected: 10/24/22 1313 Lab Status: Final result Specimen: Blood Peripheral Updated: 10/29/22 1632 Culture No growth day 5 MRSA DNA PCR [[id number]] (Normal) Collected: 10/23/22 1234 Lab Status: Final result Specimen: Microbiology from Nasal Updated: 10/23/22 2044 MRSA DNA by PCR Not detected Narrative: Methicillin-resistant Staphylococcus aureus (MRSA) DNA is not detected (presumed not colonized withMRSA). CULTURE BLOOD [[id number]] (Normal) Collected: 10/23/22 1216 Lab Status: Final result Specimen: Blood Peripheral Updated: 10/28/22 1702 Culture No growth day 5 CULTURE BLOOD [[id number]] (Normal) Collected: 10/23/22 1205 Lab Status: Final [...] presence of the primary team staff, residents, PT/OT/FIXED CAPITAL CLERK and CM/SW. Jaime Drew MD Vascular and [...] results for input(s): MG in the last 97690 hours. Recent Labs Component Name 11/08/22 2346 11/07/224 11/06/22 2312 PHOS 3.8 4.3 4.3 Recent Labs Component Name 11/09/22 0237 11/08/22 0254 11/07/22 0305 11/06/22 2312 11/06/22 1830 11/06/22 0740 PT 18.9* 18.3* 18.4* - - - INR 1.6 1.6 1.6 - - - PTT - - - 63.4* 68.6* 97.1* No results for input(s): A1C in the last 81623 hours. Recent Labs Component Name 10/20/22 0302 06/15/22 0757 CHOL 173 204* HDL 42 37* LDLCALC 91 117* TRIG 201* 251* Recent Labs Component Name 11/06/22 0136 TSH 1.682 No results for input(s): CKMB, CKTOTAL, CKMB, TROPONINI, BNP in the last [address] ANGIO CHEST PULM EMBOLISM Result Date: 11/07/2022 PROCEDURE: CT ANGIO CHEST PULM EMBOLISM, DATE/TIME OF EXAM: 11/07/2022 5:25 PM, LOCATION [facility] INDICATION: R50.9: Fever, unspecified fever cause [...] > Dictated by Tim Major MD (residential installer). I, Alexx Lopez have personally reviewed and [...] Time to Reperfusion: 9:54 Final TICI: 2b Administrative Fellow: Dr. Mitali Waletr Supervisor Paper Products(s): Isak Monte Vessels: Ultrasound Guided Access of Femoral Artery Ultrasound Guided Access of Radial Artery Arterial line placement in the right radial artery Right Common Carotid Artery Angiogram: Cerebral Intracranial Catheterization Mechanical Thrombectomy with Retrievable Stent and Reperfusion Catheter Angiography Through the Existing Catheter Right Femoral Artery Angiogram Anesthesia: General Anesthesia was performed and monitored by an attending Anesthesiologist and their executive chef assistant throughout the entirety of the case [...] artery demonstrated a patent vessel. A 5 v[place] citizen sheath was placed in the radial artery [...] Following a series of exchanges, a 8 Turkmen sheath sheath was placed in the right femoralartery. A Guide and a 6 Turkmen Penumbra Select Serrano 2 catheter along with [...] system. Hemostasis was achieved using a 8 Turkmen Angio-Seal closure device. Hemostasis was immediate at [...] DATE/TIME OF EXAM: 11/05/2022 5:28 PM, LOCATION [facility] INDICATION: R50.9: Fever, unspecified fever cause [...] Report dictated by Mc Castro MD, (residential installer). I, Pepe Gonzalez MD have personally reviewed [...] DATE/TIME OF EXAM: 11/05/2022 9:38 AM, LOCATION [facility] INDICATION: R50.9: Fever, unspecified fever cause ADDITIONAL CLINICAL INFORMATION: Ordering Provider Reason For Exam: consolidation COMPARISON: Chest radiograph 10/29/2022. FINDINGS/IMPRESSION: Previously seen feeding tube has been removed. These no confluent consolidation, pleural effusion, or pneumothorax is noted. The cardiomediastinal silhouette is stable. No acute osseous abnormality is noted. Report dictated by Christopher Tobin MD, (residential installer). I, HEATHER FREGOSO MD have personally reviewed and interpreted this examination/study. > Interpreting Provider: HEATHER FREGOSO MD on 11/05/2022 2:[address] ABDOMEN WO CONTRAST Result Date: 11/02/2022 PROCEDURE: CT ABDOMEN WO CONTRAST, DATE/TIME OF EXAM: 2022 6:47 PM, LOCATION [facility] INDICATION: Z93.1: Presence of externally removable [...] > Dictated by Tim Major MD (residential installer). I, Pepe Gonzalez MD have personallyreviewed and interpreted this examination/study. > Interpreting Provider: Pepe Gonzalez MD on 11/02/2022 1:[address] ABDOMEN PELVIS W CONTRAST Result Date: 10/31/2022 PROCEDURE: CT ABDOMEN PELVIS W CONTRAST, DATE/TIME OF EXAM: 10/31/2022 10:16 AM, LOCATION [facility] INDICATION: I33.0: Aortic valve vegetation ADDITIONAL [...] DATE/TIME OF EXAM: 10/30/2022 8:22 PM, LOCATION: [facility] HISTORY: I63.511: Right middle cerebral artery [...] frontal gyrus/frontal operculum, consistent with an evolving dbkqejrp-oh-zzjcjjx infarct. 4.No significant midline shift. Similar-appearing size and configuration of the ventricles without evidence of hydrocephalus. Basal cisterns are patent. 5.No other convincing change. Partially imaged left nasoenteric tube. > Interpreting Provider: Amanda Real MD, PhD on 10/31/2022 1:26 AM MD GLENN Farhad ANGIO TEAM Result Date: 10/30/2022 Fluoroscopy was used for this exam in the OR. Please see the Operative report. XR CHEST 1VW PORTABLE Result Date: 10/29/2022 PROCEDURE: XR CHEST 1VW PORTABLE, DATE/TIME OF EXAM: 10/29/2022 10:29 AM, LOCATION [facility] INDICATION: R09.02: Hypoxia ADDITIONAL CLINICAL INFORMATION: Ordering Provider Reason For Exam: evaluate for hypoxia COMPARISON: Chest x-ray from 10/27/2022 FINDINGS/IMPRESSION: Enteric tube is seen coursing over the diaphragm without visualization of the distal tip. There is no focal consolidation, pleural effusion, or pneumothorax. The cardiomediastinal silhouette is normal. Report dictated by Jacques Russell DO (residential installer). Jacques Ornelas DO have personally reviewed and interpreted this examination/study. 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 Report dictated by Jacques Russell DO (residential installer). Jacques Ornelas DO have personally reviewed and interpreted this examination/study. 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 FINDINGS/IMPRESSION: Enteric tube courses below the diaphragm with the distal tip superimposing the antropyloric region. Report dictated by Martell Shetty MD (residential installer). I, Jacques Cole DO have personally reviewed and interpreted this examination/study. > Interpreting Provider: Jacques Cole DO on 10/28/2022 12:[address] HEAD WO CONTRAST Result Date: 10/28/2022 PROCEDURE: CT HEAD WO CONTRAST, DATE/TIME OF EXAM: 10/28/2022 5:28 AM, LOCATION [facility] INDICATION: Z91.89: At high risk for [...] is dictated by Kayla Stevenson MD (residential installer) 1 ILonnie MD have personally reviewed and interpreted this examination/study. > Interpreting Provider: Lonnie Rae MD on 10/28/2022 9:15 AM XR CHEST 1VW PORTABLE Result Date: 10/27/2022 PROCEDURE: XR CHEST 1VW PORTABLE, DATE/TIME OF EXAM: 10/27/2022 10:19 AM, LOCATION [facility] INDICATION: D72.829: Leukocytosis, unspecified type ADDITIONAL CLINICAL INFORMATION: Ordering Provider Reason For Exam: any concern for pneumonia COMPARISON: Chest radiograph dated 10/25/2022. FINDINGS/IMPRESSION: Enteric tube courses below the diaphragm and out of the shuts-cf-woim. RUQ surgical clips are present. No focal consolidation. No pleural effusion or pneumothorax. The cardiomediastinal silhouette is normal. Report dictated by Agnes Olmos DO (residential installer). IPepe MD have personally reviewed and interpreted this examination/study. 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 Enteric tube courses below the diaphragm and out of the ftpwi-su-yfiu. There is severe left rotation of the patient in this study. There is no focal consolidation, pleural effusion, or pneumothorax. The left upper lobe pulmonary nodule noted on chest CT from same day is not visualized on this plain film. The cardiomediastinal silhouette is normal. The visible bony thorax is intact. Report dictated by Royer Stovall MD (residential installer). Alexx Ornelas have personally reviewed and interpreted this examination/study. > Interpreting Provider: Alexx Lopez on 10/26/2022 2:[address] HEAD WO CONTRAST Result Date: 10/26/2022 PROCEDURE: CT HEAD WO CONTRAST, DATE/TIME OF EXAM: 10/26/2022 4:55 AM, LOCATION [facility] INDICATION: I63.511: Right middle cerebral artery [...] is dictated by Miranda Bowen MD (residential installer) I, Oriana Suarez MD have personally reviewed and interpreted this examination/study. > Interpreting Provider: Oriana Suarez MD on 38:[address] CHEST ABDOMEN PELVIS W CONT Result Date: 10/25/2022 PROCEDURE: CT CHEST ABDOMEN PELVIS W CONT, DATE/TIME OF EXAM: 10/25/2022 12:56 PM, LOCATION [facility] INDICATION: I63.511: Right middle cerebral artery [...] present. Thoracic Vasculature: No vascular abnormality is present.Abdomen/pelvis: Liver: Normal. Gallbladder and Bile Ducts: The gallbladder is surgically absent. Nobiliary dilatation.. Spleen: Normal. Pancreas: Normal. Adrenals: Normal. [...] Reproductive Organs: The uterus is present. 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 I, Alexx Lopez have personally reviewed and interpreted this examination/study. > Interpreting Provider: Alexx Lopez on 10/25/2022 4:[address] HEAD WO CONTRAST Result Date: 10/25/2022 PROCEDURE: CT HEAD WO CONTRAST, DATE/TIME OF EXAM: 10/25/2022 12:56 PM, LOCATION [facility] INDICATION: I63.511: Right middle cerebral artery [...] is dictated by Miranda Bowen MD (residential installer) I, Joni Fabian MD have personally reviewed and interpreted this examination/study. > Interpreting Provider: Joni Fabian MD on 10/25/2022 2:[address] CARDIAC ANGIO STRUCT MORPH Result Date: 10/25/2022 PROCEDURE: CT CARDIAC ANGIO STRUCT MORPH, DATE/TIME OF EXAM: 10/23/2022 3:08 PM, LOCATION [facility] INDICATION: I63.411: Acute cerebrovascular accident (CVA) [...] DATE/TIME OF EXAM: 10/24/2022 2:04 PM, LOCATION [facility] INDICATION: R47.1: Dysarthria ADDITIONAL CLINICAL INFORMATION: Ordering Provider ReasonFor Exam: ngt placement COMPARISON: Portable KUB dated 10/23/2022 FINDINGS/IMPRESSION: The enteric tube courses below the diaphragm with tip superimposing the gastric pyloric region. Drafted by Agnes Olmos DO (residential installer). I, Vanessa Kumar MD have personally reviewed and interpreted this examination/study. > Interpreting Provider: Vanessa Kumar MD on 10/24/2022 2:17 PM MRI BRAIN WWO CONTRAST Result Date: 10/24/2022 PROCEDURE: MRI BRAIN WWO CONTRAST, DATE/TIME OF EXAM: 10/24/2022 10:56 AM, LOCATION [facility] INDICATION: I63.411: Acute cerebrovascular accident (CVA) [...] right lateral ventricle, and approximately 3-4 mm vbcja-ac-aarw midline shift at the level ofthe foramen [...] right lateral ventricle, and approximately 3-4 mm zhnbd-nt-leav midline shift, grossly similar to the prior. [...] Report dictated by Tim Major MD (residential installer). Jasper Ornelas MD have personally reviewed and interpreted this examination/study. 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 Endotracheal tube terminates in the midthoracic trachea. There is no focal consolidation. No pleural effusion or pneumothorax. The cardiomediastinal silhouette is normal. No acute osseous abnormality. Report dictated by Agnes Olmos DO (residential installer). I, Vanessa Kumar MD have personally reviewed [...] DATE/TIME OF EXAM: 10/23/2022 1:53 PM, LOCATION [facility] INDICATION: R47.1: Dysarthria ADDITIONAL CLINICAL INFORMATION: Ordering Provider ReasonFor Exam: NGT placement COMPARISON: Portable KUB dated 10/20/2022 FINDINGS/IMPRESSION: The enteric tube courses below the diaphragm with tip superimposing the stomach. Drafted by Agnes Olmos DO (residential installer). I, Vanessa Kumar MD have personally reviewed and interpreted this examination/study. > Interpreting Provider: Vanessa Kumar MD on 10/24/2022 8:[address] HEAD WO CONTRAST Result Date: 10/23/2022 PROCEDURE: CT HEAD WO CONTRAST, DATE/TIME OF EXAM: 10/23/2022 5:53 AM, LOCATION [facility] INDICATION: I63.511: Right middle cerebral artery [...] report is dictated by Miranda Bowen MD(residential installer) Jasper Ornelas MD have personally reviewed and interpreted this examination/study. > Interpreting Provider: Jasper Sifuentes MD on 10/23/2022 9:[address] HEAD WO CONTRAST Result Date: 10/22/2022 PROCEDURE: CT HEAD WO CONTRAST, DATE/TIME OF EXAM: 10/22/2022 5:35 AM, LOCATION [facility] INDICATION: I63.511: Right middle cerebral artery [...] hemorrhage. Report dictated by Lorenzo Horta MD (vice president sales). I, Lonnie Rae MD have personally reviewed and interpreted this examination/study. > Interpreting Provider: Lonnie Rae MD on 10/22/2022 3:10 PM XR CHEST 1VW PORTABLE Result Date: 10/21/2022 PROCEDURE: XR CHEST 1VW PORTABLE, DATE/TIME OF EXAM: 10/21/2022 8:53 AM, LOCATION [facility] INDICATION: R53.1: Weakness ADDITIONAL CLINICAL INFORMATION: [...] dictated by Christopher Tobin MD, MD (residential installer). I, HEATHER FREGOSO MD have personally reviewed [...] DATE/TIME OF EXAM: 10/20/2022 9:13 PM, LOCATION [facility] INDICATION: I63.411: Acute cerebrovascular accident (CVA) due to embolism of right middle cerebral artery (CMS/HCC) ADDITIONAL CLINICAL INFORMATION: Ordering Provider Reason For Exam: [facility] COMPARISON: Multiple prior studies, most recently [...] effacement, effacement of theright lateral ventricle, and cbwez-co-mrqw midline shift measuring up to 4 mm [...] prior. > Dictated by Bassam Jovel M.D. (vice president sales) Gonzalez Ornelas MD have personally reviewed [...] Report dictated by Royer Stovall MD (residential installer). Amanda Ornelas MD have personally reviewed and [...] DATE/TIME OF EXAM: 10/19/2022 8:16 AM, LOCATION [facility] INDICATION: Code Stroke ADDITIONAL CLINICAL INFORMATION: [...] DATE/TIME OF EXAM: 10/19/2022 8:04 AM, LOCATION [facility] INDICATION: Code Stroke ADDITIONAL CLINICAL INFORMATION: [...] needed. Shania Jha, PharmD 1:28 PM 11/09/2022 [facility] Vancomycin Guideline SUBJECTIVE/OBJECTIVE Consuelo Darby is [...] 8 WBC 5.2 4.7 4.7 6.5 7.9 @[id number]@ Dialysis Orders (72h ago, onward) None Radiocontrast [...] [place], OT - 11/09/2022 1:03 PM CDT [facility] Physical Medicine and Rehabilitation Occupational Therapy Progress Note Patient: Consuelo Darby Med Record Number: [id number] Date of : 1980 Age: [age] year old PPE worn by staff: gloves;mask - cardiovascular surgical tech: Cheli Recommendations: Discharge OT Discharge Recommendations: Patient [...] Appearance: Pt in bed upon arrival in [facility], two family members present in [...] with good endurance and with minimal pain Resolution Analyst Goal(s): Patient to discharge to appropriate next [...] [place], PT - 11/09/2022 10:30 AM CDT [facility] Physical Medicine and Rehabilitation Physical Therapy Progress Note Patient: Consuelo Darby Med Record Number: [id number] Date of : 1980 Age: [age] year [...] therapeutic exercises, and monitoring of vitals Modified [place]: Current Modified [place] Score: 5 AM-PAC 6 Clicks Mobility Raw [...] EOB x10 minutes with minimal assist ?? Resolution Analyst Goal(s): Patient to discharge to appropriate next [...] day multidisciplinary inpatient therapies Discharge Facility Information: [facility] Anticipated level of care at discharge: Acute Rehab Facility: Anticipated level of care provider: [facility] (ALL LOCATIONS): Anticipated Discharge Date: 11/10/22: Orientation Level: Oriented X4: Family Support (Name and Phone): Extended Emergency Contact Information Primary Emergency Contact: Hi Darby Address: [address] [place] [address] [place] [address] [facility] Relation: Spouse Secondary Emergency Contact: Sandra Disla [facility] Mobile Relation: Mother Transportation at Discharge: Ambulance: READMISSION RISK SCORE is 16 at 9:12 AM 11/09/2022.: Name: Anita Richards * Alhaji Otoole MD - 11/09/2022 8:33 AM CDT [facility] Infectious Diseases Progress Note Admitted on: 10/19/2022 7:53 AM Hospital stay: Room: [facility] Attending: Jaime Drew MD Reason for ID consultation: Fever, culture negative infective endocarditis Brief History and Hospital Course: Consuelo Darby??is a 41 year old?female??with a past medical history significant for essential hypertension, migraine, GERD.?Patient presented to [facility] on??10/19/2022??as code stroke due to acute [...] CBC: Recent Labs Component Name 11/08/22 2346 11/07/22223311/06/22231110/23/22 0129 10/22/22 0153 WBC 5.2 4.7 4.7 - - RBC 3.59* 3.18* 3.20* - - HGB 10.4* 9.2* 9.3* - - HCT 33.1* 29.5* 29.5* - - MCV 92.2 92.8 92.2 - - PLT - - - - 199 - = values in this interval not displayed. BMP: Recent Labs Component Name 11/09/22 0654 11/08/226 11/07/224 11/06/222 10/20/22 0302 10/19/22 0824 06/15/22 0757 NA [...] Cruz MD - 11/10/2022 9:03 AM CDT [facility] Infectious Diseases Attending Note Documentation Date/Time: 11/09/2022, [...] S/p 10/20 with neurosurgery for R sided qrdrdz-pfqnqcz-dxdlsikj decompressive sonya-craniectomy for treatment of refractory intracranial [...] Date/Time RESPIRATORY PANEL WITH SARS-COV-2 BY PCR (ST) [[id number]] (Normal) Collected: 11/05/22 1310 Lab Status: Final [...] via the [place] Pathway. CULTURE URINE [[id number]] (Normal) Collected: 11/05/22 1307 Lab Status: Final result Specimen: Urine Cath Straight Updated: 11/06/22 1617 Culture Urine No growth (<100 CFU/mL) CULTURE BLOOD [[id number]] (Normal) Collected: 11/05/22 1054 Lab Status: Preliminary result Specimen: Blood Peripheral Updated: 11/07/22 1401 Culture No growth CULTURE URINE [[id number]] (Normal) Collected: 10/27/22 1208 Lab Status: Final result Specimen: Urine Clean Catch Updated: 10/28/22 2236 Culture Urine No growth (<100 CFU/mL) CULTURE BLOOD FUNGUS [[id number]] (Normal) Collected: 10/27/22 1158 Lab Status: Preliminary result Specimen: Blood Peripheral Updated: 11/06/22 0848 Culture No fungus isolated CULTURE BLOOD AFB [[id number]] (Normal) Collected: 10/27/22 1158 Lab Status: Preliminary result Specimen: Blood Peripheral Updated: 11/06/22 1135 Culture No acid-fast bacillus isolated BARTONELLA SPECIES PCR [[id number]] Collected: 10/27/22 1158 Lab Status: Final result [...] developed and its performance characteristics determined by [facility]. It has not been cleared or approved by the US Food and Drug Administration. This test was performed in a CLIA certified laboratory and is intended for clinical purposes. Performed By: [facility] [address] [place] [id number] [employer] Supervisor: Boo Bond MD, PhD CLIA Number: [id number] CULTURE BLOOD [[id number]] (Normal) Collected: 10/25/22 0900 Lab Status: Final result Specimen: Blood Peripheral Updated: 10/30/22 1330 Culture No growth day 5 CULTURE BLOOD [[id number]] (Normal) Collected: 10/24/22 1313 Lab Status: Final result Specimen: Blood Peripheral Updated: 10/29/22 1632 Culture No growth day 5 MRSA DNA PCR [[id number]] (Normal) Collected: 10/23/22 1234 Lab Status: Final result Specimen: Microbiology from Nasal Updated: 10/23/22 2044 MRSA DNA by PCR Not detected Narrative: Methicillin-resistant Staphylococcus aureus (MRSA) DNA is not detected (presumed not colonized withMRSA). CULTURE BLOOD [[id number]] (Normal) Collected: 10/23/22 1216 Lab Status: Final result Specimen: Blood Peripheral Updated: 10/28/22 1702 Culture No growth day 5 CULTURE BLOOD [[id number]] (Normal) Collected: 10/23/22 1205 Lab Status: Final [...] presence of the primary team staff, residents, PT/OT/FIXED CAPITAL CLERK and CM/SW. Jaime Drew MD Vascular and [...] needed. Maicol Oden, PharmD 3:58 PM 11/08/2022 [facility] Vancomycin Guideline SUBJECTIVE/OBJECTIVE Consuelo Darby is [...] WBC 4.7 4.7 6.5 7.9 6.9 - @[id number]@ Dialysis Orders (72h ago, onward) None Radiocontrast [...] Leigh, JOSETTE - 11/08/2022 3:51 PM CDT [facility] Physical Medicine and Rehabilitation Swallow Treatment Patient: Consuelo Darby Med Record Number: [id number] Date of : 1980 Age: [age] year [...] Impression - Pharyngeal: Severe Treatment/Education/Interventions: While performing FIXED CAPITAL CLERK, Patient and sister was instructed in: goals [...] precautions., Patient will follow recommended swallowing strategies. Resolution Analyst Goal (s): Patient to be independent/baseline with functional mobility and self care and be able to safely discharge to prior level of care. Jerry Valle M.A., [facility]-FIXED CAPITAL CLERK Speech Language Pathologist [phone] * Jose Elias [...] in desired activity. Outcome: Progressing * Alhaji Otoloe MD - 11/08/2022 3:10 PM CDT [facility] Infectious Diseases Progress Note Admitted on: 10/19/2022 7:53 AM Hospital stay: Day Room: [facility]/ Attending: Jaime Drew MD Reason for ID consultation: Fever, culture negative infective endocarditis Brief History and Hospital Course: Consuelo Darby??is a 41 year old?female??with a past medical history significant for essential hypertension, migraine, GERD.?Patient presented to [facility] on??10/19/2022??as code stroke due to acute [...] LABS CBC: Recent Labs Component Name 11/07/22223311/06/22 23111/06/22 0136 10/23/22 0129 10/22/22 0153 WBC 4.7 [...] Cruz MD - 11/09/2022 6:55 AM CDT [facility] Infectious Diseases Attending Note Documentation Date/Time: 11/08/2022, [...] S/p 10/20 with neurosurgery for R sided gvimhj-pxugbdl-qjgympqk decompressive sonya-craniectomy for treatment of refractory intracranial [...] None: Anticipated Discharge Date: 11/10/22: Discharge Plan: [facility] Rehab once medically ready. Pt febrile and being evaluated. ID following. Pending heparin gtt + warfarin bridge Orientation Level: Oriented to Person;Oriented to Place: Family Support (Name and Phone): Extended Emergency Contact Information Primary Emergency Contact: Hi Darby Address: [address] [place] [address] [place] [address] [facility] Relation: Spouse Secondary Emergency Contact: Sandra Disla [facility] Mobile Relation: Mother Transportation at Discharge: Ambulance: READMISSION RISK SCORE is 16 at 2:49 PM 11/08/2022.: Name: Maru Mcduffie RN 2426 * Rosa Vegas, PT - 11/08/2022 2:06 PM CDT [facility] Physical Medicine and Rehabilitation Physical Therapy Progress Note Patient: Consuelo Darby Med Record Number: [id number] Date of : 1980 Age: [age] year [...] monitoring of vitals Modified Maryann: Current Modified [place] Score: 5 AM-PAC 6 Clicks Mobility Raw [...] EOB x10 minutes with minimal assist ?? Resolution Analyst Goal(s): Patient to discharge to appropriate next [...] Troy, OT - 11/08/2022 11:32 AM CDT [facility] Physical Medicine and Rehabilitation Occupational Therapy Progress Note Patient: Consuelo Darby Med Record Number: [id number] Date of : 1980 Age: [age] year old PPE worn by staff: gloves;mask - cardiovascular surgical tech: Cheli Recommendations: Discharge OT Discharge Recommendations: Patient [...] Appearance: Pt in bed upon arrival in [facility], MIL present in room during [...] splint fitting appropriately, skin integrity intact. Modified [place]: Current Modified [place] Score: 5 AM-PAC 6 Clicks Daily Activity [...] with good endurance and with minimal pain Resolution Analyst Goal(s): Patient to discharge to appropriate next [...] results for input(s): MG in the last 32750 hours. Recent Labs Component Name 11/07/22223311/06/22231111/06/22135 PHOS 4.3 4.3 3.6 Recent Labs Component Name 11/08/22 0254 11/07/22 0305 11/06/22231111/06/22 1830 11/06/22 0740 11/06/22 0136 PT 18.3* 18.4* - - - 17.1* INR 1.6 1.6 - - - 1.4 PTT - - 63.4* 68.6* 97.1* 100.4* No results for input(s): A1C in the last 64164 hours. Recent Labs Component Name 10/20/22 0302 06/15/22 0757 CHOL 173 204* HDL 42 37* LDLCALC 91 117* TRIG 201* 251* Recent Labs Component Name 11/06/22 0136 TSH 1.682 No results for input(s): CKMB, CKTOTAL, CKMB, TROPONINI, BNP in the last [address] ANGIO CHEST PULM EMBOLISM Result Date: 11/07/2022 PROCEDURE: CT ANGIO CHEST PULM EMBOLISM, DATE/TIME OF EXAM: 11/07/2022 5:25 PM, LOCATION [facility] INDICATION: R50.9: Fever, unspecified fever cause [...] > Dictated by Tim Major MD (residential installer). IAlexx have personally reviewed and interpreted this [...] m-mode, color and spectralDoppler echocardiography. IR INTRACRANIAL [facility] THROMBECT Result Date: 11/07/2022 PROCEDURE: IR INTRACRANIAL [facility] THROMBECT DATE/TIME OF EXAM: 10/19/2022 10:41 AM [...] Time to Reperfusion: 9:54 Final TICI: 2b Administrative Fellow: Dr. Mitali Walter Supervisor Paper Products(s): Isak Monte Vessels: Ultrasound Guided Access of Femoral Artery Ultrasound Guided Access of Radial Artery Arterial line placement in the right radial artery Right Common Carotid Artery Angiogram: Cerebral Intracranial Catheterization Mechanical Thrombectomy with Retrievable Stent and Reperfusion Catheter Angiography Through the Existing Catheter Right Femoral Artery Angiogram Anesthesia: General Anesthesia was performed and monitored by an attending Anesthesiologist and their executive chef assistant throughout the entirety of the case [...] artery demonstrated a patent vessel. A 5 vatican citizen sheath was placed in the radial artery [...] Following a series of exchanges, a 8 Turkmen sheath sheath was placed in the right femoralartery. A Guide and a 6 Turkmen Penumbra Select Serrano 2 catheter along with [...] system. Hemostasis was achieved using a 8 Turkmen Angio-Seal closure device. Hemostasis was immediate at [...] DATE/TIME OF EXAM: 11/05/2022 5:28 PM, LOCATION [facility] INDICATION: R50.9: Fever, unspecified fever cause [...] Report dictated by Mc Castro MD, (residential installer). Pepe Ornelas MD have personally reviewed and [...] DATE/TIME OF EXAM: 11/05/2022 9:38 AM, LOCATION [facility] INDICATION: R50.9: Fever, unspecified fever cause ADDITIONAL CLINICAL INFORMATION: Ordering Provider Reason For Exam: consolidation COMPARISON: Chest radiograph 10/29/2022. FINDINGS/IMPRESSION: Previously seen feeding tube has been removed. These no confluent consolidation, pleural effusion, or pneumothorax is noted. The cardiomediastinal silhouette is stable. No acute osseous abnormality is noted. Report dictated by Christopher Tobin MD, MD (residential installer). HEATHER Ornelas MD have personally reviewed and interpreted this examination/study. > Interpreting Provider: HEATHER FREGOSO MD on 11/05/2022 2:[address] ABDOMEN WO CONTRAST Result Date: 11/02/2022 PROCEDURE: CT ABDOMEN WO CONTRAST, DATE/TIME OF EXAM: 2022 6:47 PM, LOCATION [facility] INDICATION: Z93.1: Presence of externally removable [...] > Dictated by Tim Major MD (residential installer). Pepe Ornelas MD have personallyreviewed and interpreted this examination/study. > Interpreting Provider: Pepe Gonzalez MD on 11/02/2022 1:[address] ABDOMEN PELVIS W CONTRAST Result Date: 10/31/2022 PROCEDURE: CT ABDOMEN PELVIS W CONTRAST, DATE/TIME OF EXAM: 10/31/2022 10:16 AM, LOCATION [facility] INDICATION: I33.0: Aortic valve vegetation ADDITIONAL [...] DATE/TIME OF EXAM: 10/30/2022 8:22 PM, LOCATION: [facility] HISTORY: I63.511: Right middle cerebral artery [...] frontal gyrus/frontal operculum, consistent with an evolving olxiweiw-hz-hyyquzg infarct. 4.No significant midline shift. Similar-appearing size [...] DATE/TIME OF EXAM: 10/29/2022 10:29 AM, LOCATION [facility] INDICATION: R09.02: Hypoxia ADDITIONAL CLINICAL INFORMATION: Ordering Provider Reason For Exam: evaluate for hypoxia COMPARISON: Chest x-ray from 10/27/2022 FINDINGS/IMPRESSION: Enteric tube is seen coursing over the diaphragm without visualization of the distal tip. There is no focal consolidation, pleural effusion, or pneumothorax. The cardiomediastinal silhouette is normal. Report dictated by Jacques Russell DO (residential installer). Jacques Ornelas DO have personally reviewed and interpreted this examination/study. 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 Report dictated by Jacques Russell DO (residential installer). Jacques Ornelas DO have personally reviewed and interpreted this examination/study. 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 FINDINGS/IMPRESSION: Enteric tube courses below the diaphragm with the distal tip superimposing the antropyloric region. Report dictated by Martell Shetty MD (residential installer). Jacques Ornelas DO have personally reviewed and interpreted this examination/study. > Interpreting Provider: Jacques Cole DO on 10/28/2022 12:[address] HEAD WO CONTRAST Result Date: 10/28/2022 PROCEDURE: CT HEAD WO CONTRAST, DATE/TIME OF EXAM: 10/28/2022 5:28 AM, LOCATION [facility] INDICATION: Z91.89: At high risk for [...] is dictated by Kayla Stevenson MD (residential installer) 1 I, Lonnie Rae MD have personally reviewed and interpreted this examination/study. > Interpreting Provider: Lonnie Rae MD on 10/28/2022 9:15 AM XR CHEST 1VW PORTABLE Result Date: 10/27/2022 PROCEDURE: XR CHEST 1VW PORTABLE, DATE/TIME OF EXAM: 10/27/2022 10:19 AM, LOCATION [facility] INDICATION: D72.829: Leukocytosis, unspecified type ADDITIONAL CLINICAL INFORMATION: Ordering Provider Reason For Exam: any concern for pneumonia COMPARISON: Chest radiograph dated 10/25/2022. FINDINGS/IMPRESSION: Enteric tube courses below the diaphragm and out of the ebpza-ae-tkyh. RUQ surgical clips are present. No focal consolidation. No pleural effusion or pneumothorax. The cardiomediastinal silhouette is normal. Report dictated by Agnes Olmos DO (residential installer). I, Pepe Gonzalez MD have personally reviewed and interpreted this examination/study. 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 Enteric tube courses below the diaphragm and out of the uzpbt-vb-umca. There is severe left rotation of the patient in this study. There is no focal consolidation, pleural effusion, or pneumothorax. The left upper lobe pulmonary nodule noted on chest CT from same day is not visualized on this plain film. The cardiomediastinal silhouette is normal. The visible bony thorax is intact. Report dictated by Royer Stovall MD (residential installer). I, Alexx Lopez have personally reviewed and interpreted this examination/study. > Interpreting Provider: Alexx Lopez on 10/26/2022 2:[address] HEAD WO CONTRAST Result Date: 10/26/2022 PROCEDURE: CT HEAD WO CONTRAST, DATE/TIME OF EXAM: 10/26/2022 4:55 AM, LOCATION [facility] INDICATION: I63.511: Right middle cerebral artery [...] is dictated by Miranda Bowen MD (residential installer) I, Oriana Suarez MD have personally reviewed and interpreted this examination/study. > Interpreting Provider: Oriana Suarez MD on 38:[address] CHEST ABDOMEN PELVIS W CONT Result Date: 10/25/2022 PROCEDURE: CT CHEST ABDOMEN PELVIS W CONT, DATE/TIME OF EXAM: 10/25/2022 12:56 PM, LOCATION [facility] INDICATION: I63.511: Right middle cerebral [...] > Dictated by Clarisa Cantrell MD (residential installer). I, Alexx Lopez have personally reviewed and interpreted this examination/study. > Interpreting Provider: Alexx Lopez on 10/25/2022 4:[address] HEAD WO CONTRAST Result Date: 10/25/2022 PROCEDURE: CT HEAD WO CONTRAST, DATE/TIME OF EXAM: 10/25/2022 12:56 PM, LOCATION [facility] INDICATION: I63.511: Right middle cerebral artery [...] is dictated by Miranda Bowen MD (residential installer) I, Joni aFbian MD have personally reviewed and interpreted this examination/study. > Interpreting Provider: Joni Fabian MD on 10/25/2022 2:[address] CARDIAC ANGIO STRUCT MORPH Result Date: 10/25/2022 PROCEDURE: CT CARDIAC ANGIO STRUCT MORPH, DATE/TIME OF EXAM: 10/23/2022 3:08 PM, LOCATION [facility] INDICATION: I63.411: Acute cerebrovascular accident (CVA) [...] DATE/TIME OF EXAM: 10/24/2022 2:04 PM, LOCATION [facility] INDICATION: R47.1: Dysarthria ADDITIONAL CLINICAL INFORMATION: Ordering Provider ReasonFor Exam: ngt placement COMPARISON: Portable KUB dated 10/23/2022 FINDINGS/IMPRESSION: The enteric tube courses below the diaphragm with tip superimposing the gastric pyloric region. Drafted by Agnes Olmos DO (residential installer). I, Vanessa Kumar MD have personally reviewed and interpreted this examination/study. > Interpreting Provider: Vanessa Kumar MD on 10/24/2022 2:17 PM MRI BRAIN WWO CONTRAST Result Date: 10/24/2022 PROCEDURE: MRI BRAIN WWO CONTRAST, DATE/TIME OF EXAM: 10/24/2022 10:56 AM, LOCATION [facility] INDICATION: I63.411: Acute cerebrovascular accident (CVA) [...] right lateral ventricle, and approximately 3-4 mm yfkwt-io-wzbk midline shift at the level of the [...] right lateral ventricle, and approximately 3-4 mm zqghr-jo-czrh midline shift, grossly similar to the prior. [...] Report dictated by Tim Major MD (residential installer). IJasper MD have personally reviewed and interpreted this examination/study. > Interpreting Provider: Jasper Sifuentes MD on 10/24/2022 1:59 PM XR CHEST 1VW PORTABLE Result Date: 10/24/2022 PROCEDURE: XR CHEST 1VW PORTABLE, DATE/TIME OF EXAM: 10/23/2022 8:24 AM, LOCATION [facility] INDICATION: I63.511: Right middle cerebral artery stroke ([facility]) ADDITIONAL CLINICAL INFORMATION: Ordering Provider Reason For Exam: OETT position COMPARISON: Chest radiograph dated 10/21/2022 FINDINGS/IMPRESSION: The enteric tube courses below the diaphragm out of the inferior zzdmi-hq-ozzg. Endotracheal tube terminates in the midthoracic trachea. There is no focal consolidation. No pleural effusion or pneumothorax. The cardiomediastinal silhouette is normal. No acute osseous abnormality. Report dictated by Agnes Olmos DO (residential installer). Vanessa Ornelas MD have personally reviewed and [...] DATE/TIME OF EXAM: 10/23/2022 1:53 PM, LOCATION [facility] INDICATION: R47.1: Dysarthria ADDITIONAL CLINICAL INFORMATION: Ordering Provider ReasonFor Exam: NGT placement COMPARISON: Portable KUB dated 10/20/2022 FINDINGS/IMPRESSION: The enteric tube courses below the diaphragm with tip superimposing the stomach. Drafted by Agnes Olmos DO (residential installer). I, Vanessa Kumar MD have personally reviewed and interpreted this examination/study. > Interpreting Provider: Vanessa Kumar MD on 10/24/2022 8:[address] HEAD WO CONTRAST Result Date: 10/23/2022 PROCEDURE: CT HEAD WO CONTRAST, DATE/TIME OF EXAM: 10/23/2022 5:53 AM, LOCATION [facility] INDICATION: I63.511: Right middle cerebral artery [...] report is dictated by Miranda Bowen MD(residential installer) IJasper MD have personally reviewed and interpreted this examination/study. > Interpreting Provider: Jasper Sifuentes MD on 10/23/2022 9:[address] HEAD WO CONTRAST Result Date: 10/22/2022 PROCEDURE: CT HEAD WO CONTRAST, DATE/TIME OF EXAM: 10/22/2022 5:35 AM, LOCATION [facility] INDICATION: I63.511: Right middle cerebral artery [...] hemorrhage. Report dictated by Lorenzo Horta MD (vice president sales). I, Lonnie Rae MD have personally reviewed and interpreted this examination/study. > Interpreting Provider: Lonnie Rae MD on 10/22/2022 3:10 PM XR CHEST 1VW PORTABLE Result Date: 10/21/2022 PROCEDURE: XR CHEST 1VW PORTABLE, DATE/TIME OF EXAM: 10/21/2022 8:53 AM, LOCATION [facility] INDICATION: R53.1: Weakness ADDITIONAL CLINICAL INFORMATION: [...] dictated by Christopher Tobin MD, MD (residential installer). I, HEATHER FREGOSO MD have personally reviewed [...] DATE/TIME OF EXAM: 10/20/2022 9:13 PM, LOCATION [facility] INDICATION: I63.411: Acute cerebrovascular accident (CVA) due to embolism of right middle cerebral artery (CMS/HCC) ADDITIONAL CLINICAL INFORMATION: Ordering Provider Reason For Exam: [facility] COMPARISON: Multiple prior studies, most recently [...] effacement, effacement of theright lateral ventricle, and qhgci-jw-ryvg midline shift measuring up to 4 mm [...] mm, unchanged from prior. > Dictated by Basasm Jovel M.D. (vice president sales) Gonzalez Ornelas MD have personally reviewed [...] Report dictated by Royer Stovall MD (residential installer). Amanda Ornelas MD have personally reviewed and [...] DATE/TIME OF EXAM: 10/19/2022 8:16 AM, LOCATION [facility] INDICATION: Code Stroke ADDITIONAL CLINICAL INFORMATION: [...] DATE/TIME OF EXAM: 10/19/2022 8:04 AM, LOCATION [facility] INDICATION: Code Stroke ADDITIONAL CLINICAL INFORMATION: [...] stable or improving Outcome: Progressing * Orquidea Pederson RD/MELVA - 11/07/2022 2:21 PM CDT Clinical Nutrition [...] Pain affecting intake: No Estimated Needs: KCAL: 4987-3520 (30-35 kcal/kg IBW) Protein (g): 82g (1.5 [...] Vegas, PT - 11/07/2022 2:02 PM CDT [facility] Physical Medicine and Rehabilitation Physical Therapy Progress Note Patient: Consuelo Darby Med Record Number: [id number] Date of : 1980 Age: [age] year [...] with BUE supported on table: reaching to warp picker object with RUE and placing object on various targets to L side of midline ACTIVITY TOLERANCE: Patient's activity tolerance: fair plus. TREATMENT/INTERVENTIONS: Patient seen for bed mobility training, sitting balance training, and seated therapeutic exercises with emphasis on neutral spine posture and gaze to midline/L side Modified [place]: Current Modified Maryann Score: 5 AM-PAC 6 [...] EOB x10 minutes with minimal assist ?? Prison Goal(s): Patient to discharge to appropriate next [...] results for input(s): MG in the last 33967 hours. Recent Labs Component Name 11/06/22 2312 [...] results for input(s): A1C in the last 21471 hours. Recent Labs Component Name 10/20/22 0302 06/15/22 0757 CHOL 173 204* HDL 42 37* LDLCALC 91 117* TRIG 201* 251* Recent Labs Component Name 11/06/22 0136 TSH 1.682 No results for input(s): CKMB, CKTOTAL, CKMB, TROPONINI, BNP in the last [address] ANGIO BRAIN NECK STROKE Result [...] RESPIRATORY PANEL WITH SARS-COV-2 BY PCR (STL) [[id number]] (Normal) Collected: 11/05/22 1310 Lab Status: Final [...] via the [place] Pathway. CULTURE URINE [[id number]] (Normal) Collected: 11/05/22 1307 Lab Status: Final result Specimen: Urine Cath Straight Updated: 11/06/22 1617 Culture Urine No growth (<100 CFU/mL) CULTURE BLOOD [[id number]] (Normal) Collected: 11/05/22 1054 Lab Status: Preliminary result Specimen: Blood Peripheral Updated: 11/06/22 1400 Culture No growth 24 hours CULTURE URINE [[id number]] (Normal) Collected: 10/27/22 1208 Lab Status: Final result Specimen: Urine Clean Catch Updated: 10/28/22 2236 Culture Urine No growth (<100 CFU/mL) CULTURE BLOOD FUNGUS [[id number]] (Normal) Collected: 10/27/22 1158 Lab Status: Preliminary result Specimen: Blood Peripheral Updated: 11/06/22 0848 Culture No fungus isolated CULTURE BLOOD AFB [[id number]] (Normal) Collected: 10/27/22 1158 Lab Status: Preliminary result Specimen: Blood Peripheral Updated: 11/06/22 1135 Culture No acid-fast bacillus isolated BARTONELLA SPECIES PCR [[id number]] Collected: 10/27/22 1158 Lab Status: Final result [...] developed and its performance characteristics determined by [facility]. It has not been cleared or approved by the [place] Food and Drug Administration. This test was performed in a CLIA certified laboratory and is intended for clinical purposes. Performed By: [facility] [address] [place] [id number] [employer] Supervisor: Boo Bond MD, PhD CLIA Number: [id number] CULTURE BLOOD [[id number]] (Normal) Collected: 10/25/22 0900 Lab Status: Final result Specimen: Blood Peripheral Updated: 10/30/22 1330 Culture No growth day 5 CULTURE BLOOD [[id number]] (Normal) Collected: 10/24/22 1313 Lab Status: Final result Specimen: Blood Peripheral Updated: 10/29/22 1632 Culture No growth day 5 MRSA DNA PCR [[id number]] (Normal) Collected: 10/23/22 1234 Lab Status: Final result Specimen: Microbiology from Nasal Updated: 10/23/22 2044 MRSA DNA by PCR Not detected Narrative: Methicillin-resistant Staphylococcus aureus (MRSA) DNA is not detected (presumed not colonized withMRSA). CULTURE BLOOD [[id number]] (Normal) Collected: 10/23/22 1216 Lab Status: Final result Specimen: Blood Peripheral Updated: 10/28/22 1702 Culture No growth day 5 CULTURE BLOOD [[id number]] (Normal) Collected: 10/23/22 1205 Lab Status: Final [...] presence of the primary team staff, residents, PT/OT/FIXED CAPITAL CLERK and CM/SW. Jaime Drew MD Vascular and Interventional Neurology * Shania Troy OT - 11/07/2022 11:56 AM CDT [facility] Physical Medicine and Rehabilitation Occupational Therapy Progress Note Patient: Consuelo Darby Med Record Number: [id number] Date of : 1980 Age: [age] year old PPE worn by staff: gloves;mask - cardiovascular surgical tech: Cheli Recommendations: Discharge OT Discharge Recommendations: Patient [...] Pt in semi fowlers upon arrival in [facility], sister present in room during [...] ACTIVITY TOLERANCE: Patient's activity tolerance: fair Modified [place]: Current Modified [place] Score: 5 AM-PAC 6 Clicks Daily Activity [...] with good endurance and with minimal pain Resolution Analyst Goal(s): Patient to discharge to appropriate next [...] Leigh SLP - 11/07/2022 10:50 AM CDT [facility] Physical Medicine and Rehabilitation Swallow Treatment Patient: Consuelo Darby Med Record Number: [id number] Date of : 1980 Age: [age] year [...] Impression - Pharyngeal: Severe Treatment/Education/Interventions: While performing FIXED CAPITAL CLERK, Patient and sister was instructed in: goals [...] precautions., Patient will follow recommended swallowing strategies. Prison Goal (s): Patient to be independent/baseline with functional mobility and self care and be able to safely discharge to prior level of care. 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 Found to have right MCA occulusion. Assessment: 41 year old female with PMH of HTN, migraine, GERD, presented to [facility] on 10/19/2022 as code stroke due [...] S/p 10/20 with neurosurgery for R sided auqppm-gnyongp-hobubtaz decompressive sonya-craniectomy for treatment of refractory intracranial [...] 36.05 kg/m??. Serum creatinine: 0.55 mg/dL (L) 08/26/23 2128 Estimated creatinine clearance: 152.2 mL/min (A) * [...] actual loss of control occurs. 11/07/2022537 by Awidla Li RN Outcome: Progressing 11/07/2022537 by Awilda [...] PM CDT Rapid Response Nurse Rounding Note [address] [address] Patient: Consuelo Darby : 1980 Location: [facility] Rapid Response Nurse (PUBLISHER ASSISTANT) continued rounding for follow up of pt's elevated temperature. Pt had a recent hemicraniectomy and ID was consulted and antibiotic regimen adjusted for coverage of endocarditis with possible vegetation. At the time of Night PUBLISHER ASSISTANT's rounding the pt's temp is 99.1 with [...] results for input(s): MG in the last 00626 hours. Recent Labs Component Name 11/06/22 0136 [...] results for input(s): A1C in the last 93474 hours. Recent Labs Component Name 10/20/22 0302 06/15/22 0757 CHOL 173 204* HDL 42 37* LDLCALC 91 117* TRIG 201* 251* Recent Labs Component Name 11/06/22 0136 TSH 1.682 No results for input(s): CKMB, CKTOTAL, CKMB, TROPONINI, BNP in the last [address] ANGIO BRAIN NECK STROKE Result [...] None: Anticipated Discharge Date: 11/08/22: Discharge Plan: [facility] rehab once medically ready. SW following. On warfarin bridge now. Developed fever- consulted ID, broaden abx, Cxs, Ddimer, TSH Orientation Level: Unable to Obtain;Other (Comment) (Patient was more alert this date. Patient awares surrounding and responded to the question by gesture.): Family Support (Name and Phone): Extended Emergency Contact Information Primary Emergency Contact: PjlubnaHi Address: [address] [place] [address] [place] [address] [facility] Relation: Spouse Secondary Emergency Contact: Sandra Disla [facility] Mobile Relation: Mother Transportation at Discharge: Ambulance: READMISSION RISK SCORE is 16 at 3:24 PM 11/06/2022.: Name: Maru Mcduffie RN 2426 * Shania Troy OT - 11/06/2022 3:17 PM CDT [facility] Physical Medicine and Rehabilitation Occupational Therapy Splint [...] mg, Enteral Tube, once warfarin ?? [COMPLETED] ixtcl-hjk-xaugleml (HOG) enema 360 mL, Rectal, Once CONTINUOUS [...] RESPIRATORY PANEL WITH SARS-COV-2 BY PCR (STL) [[id number]] (Normal) Collected: 11/05/22 1310 Lab Status: Final [...] via the [place] Pathway. CULTURE URINE [[id number]] Collected: 11/05/22 1307 Lab Status: In process Specimen: Urine Cath Straight Updated: 11/05/22 1341 CULTURE BLOOD [[id number]] (Normal) Collected: 11/05/22 1054 Lab Status: Preliminary result Specimen: Blood Peripheral Updated: 11/06/22 1400 Culture No growth 24 hours CULTURE URINE [[id number]] (Normal) Collected: 10/27/22 1208 Lab Status: Final result Specimen: Urine Clean Catch Updated: 10/28/22 2236 Culture Urine No growth (<100 CFU/mL) CULTURE BLOOD FUNGUS [[id number]] (Normal) Collected: 10/27/22 1158 Lab Status: Preliminary result Specimen: Blood Peripheral Updated: 11/06/22 0848 Culture No fungus isolated CULTURE BLOOD AFB [[id number]] (Normal) Collected: 10/27/22 1158 Lab Status: Preliminary result Specimen: Blood Peripheral Updated: 11/06/22 1135 Culture No acid-fast bacillus isolated BARTONELLA SPECIES PCR [[id number]] Collected: 10/27/22 1158 Lab Status: Final result [...] developed and its performance characteristics determined by [facility]. It has not been cleared or approved by the US Food and Drug Administration. This test was performed in a CLIA certified laboratory and is intended for clinical purposes. Performed By: [facility] [address] [place] [address] [employer] Supervisor: Boo Bond MD, PhD CLIA Number: [id number] CULTURE BLOOD [[id number]] (Normal) Collected: 10/25/22 0900 Lab Status: Final result Specimen: Blood Peripheral Updated: 10/30/22 1330 Culture No growth day 5 CULTURE BLOOD [[id number]] (Normal) Collected: 10/24/22 1313 Lab Status: Final result Specimen: Blood Peripheral Updated: 10/29/22 1632 Culture No growth day 5 MRSA DNA PCR [[id number]] (Normal) Collected: 10/23/22 1234 Lab Status: Final result Specimen: Microbiology from Nasal Updated: 10/23/22 2044 MRSA DNA by PCR Not detected Narrative: Methicillin-resistant Staphylococcus aureus (MRSA) DNA is not detected (presumed not colonized withMRSA). CULTURE BLOOD [[id number]] (Normal) Collected: 10/23/22 1216 Lab Status: Final result Specimen: Blood Peripheral Updated: 10/28/22 1702 Culture No growth day 5 CULTURE BLOOD [[id number]] (Normal) Collected: 10/23/22 1205 Lab Status: Final [...] presence of the primary team staff, residents, PT/OT/FIXED CAPITAL CLERK and CM/SW. Jaime Drew MD Vascular and [...] changes in diet or consulting a health outdoor emergency care technician before changes are made. Potential for other medications to interact with warfarin therapy and advised not to take start or discontinue any medication or rmlm-dgb-tmczemf medication without the advice of their health outdoor emergency care technician. Signs and symptoms of bleeding [...] Ankit Spivey - 11/06/2022 11:38 AM CDT [facility] Physical Medicine and Rehabilitation Physical Therapy Progress Note Patient: Consuelo Darby Med Record Number: [id number] Date of : 1980 Age: [age] year [...] monitoring of vitals and cognitive stimulation Modified [place]: Current Modified [place] Score: 5 AM-PAC 6 Clicks Mobility Raw [...] EOB x10 minutes with minimal assist ?? Resolution Analyst Goal(s): Patient to discharge to appropriate next [...] Otoole MD - 11/06/2022 9:24 AM CDT [facility] Infectious Diseases Progress Note Admitted on: 10/19/2022 7:53 AM Hospital stay: Room: [facility] Attending: Jaime Drew MD Reason for ID consultation: Fever, culture negative infective endocarditis Brief History and Hospital Course: Consuelo Darby??is a 41 year old?female??with a past medical history significant for essential hypertension, migraine, GERD.?Patient presented to [facility] on??10/19/2022??as code stroke due to acute [...] Intake/Output Summary (Last 24 hours) at 11/06/2022 0984 Last data filed at 11/06/2022 0557 Gross [...] Cruz MD - 11/07/2022 8:57 PM CDT [facility] Infectious Diseases Attending Note Documentation Date/Time: 11/06/2022, 9:14 PM The patient was seen and evaluated with Internal Medicine resident Alhaji Otoole M.D. I agree with the findings as described in the note, including the history, interval changes, ROS, examination, objective data interpretation, impression and plan as documented. Angelica Cruz MD Infectious Diseases Attending * Zenia Heath - 11/06/2022 9:12 AM CDT Discharge nurse navigator received request from to schedule a follow up appointment with CT Scan. This telegraphic typewriter repairer sent a request via [employer] to [facility] to assist with scheduling an appointment. The patient's chart will be updated once an appointment has been made. The patient will continued to be followed for their discharge planning needs. 11/06/2022 Zenia Heath 3 * Melany Cali RN - 11/06/2022 8:32 AM CDT Rapid Response Nurse Rounding Note [address] [address] Patient: Consuelo Darby : 1980 Location: Rapid [...] 1:33 AM CDT Ptt scheduled for 2144. Cigar Head Holer couldn't get vein and wasn't notified. I [...] PM CDT Rapid [place] [address] Patient: Consuelo Darby : 1980 Location: [facility]/ Patient rounding completed by PUBLISHER ASSISTANT, respirations even and unlabored. Continued fevers, however, [...] Perry OT - 11/05/2022 2:54 PM CDT [facility] Physical Medicine and Rehabilitation Occupational Therapy Splint [...] Ramsey MD - 11/05/2022 1:34 PM CDT [facility] Infectious Diseases Progress Note Admitted on: 10/19/2022 7:53 AM Hospital stay: Day Room: [facility] Attending: Jaime Drew MD Reason for IDf/u: Fever cx negative endocarditis Brief History and Hospital Course: Consuelo Darby is a 41 year old female with a past medical history significant for essential hypertension, migraine, GERD. ?? Patient presented to [facility] on 10/19/2022 as code stroke due [...] or tick bites. She lives with in [place], [place]. 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. They recently went to a trip to [place] for vacation, she bathed in the sea [...] the nurse, she has some discharged from [facility] today. U/A and Ucx were sent. SUBJECTIVE [...] Clarity UA Clear Slt Cloudy ! Specific [place] UA 1.005 - 1.030 1.016 pH UA [...] Name 11/05/22 1124 11/04/228 11/04/22 0553 11/02/22 222 NA 139 141 139 138 POTASSIUM 3.8 [...] Procedure Component Value - Date/Time CULTURE BLOOD [[id number]] Collected: 11/05/22 1054 Lab Status: In process Specimen: Blood Peripheral Updated: 11/05/22 1123 CULTURE URINE [[id number]] Lab Status: No result Specimen: Urine Cath Straight RESPIRATORY PANEL WITH SARS-COV-2 BY PCR (STL) [[id number]] Lab Status: No result Specimen: Microbiology from Nasopharyngeal CULTURE URINE [[id number]] (Normal) Collected: 10/27/22 1208 Lab Status: Final result Specimen: Urine Clean Catch Updated: 10/28/22 2236 Culture Urine No growth (<100 CFU/mL) CULTURE BLOOD FUNGUS [[id number]] (Normal) Collected: 10/27/22 115 Lab Status: Preliminary result Specimen: Blood Peripheral Updated: 10/30/22 0628 Culture No fungus isolated CULTURE BLOOD AFB [[id number]] (Normal) Collected: 10/27/22 115 Lab Status: Preliminary result Specimen: Blood Peripheral Updated: 10/30/22 0750 Culture No acid-fast bacillus isolated BARTONELLA SPECIES PCR [[id number]] Collected: 10/27/22 115 Lab Status: Final result [...] developed and its performance characteristics determined by [facility]. It has not been cleared or approved by the US Food and Drug Administration. This test was performed in a CLIA certified laboratory and is intended for clinical purposes. Performed By: [facility] [address] [place] [address] [employer] Supervisor: Boo Bond MD, PhD CLIA Number: [id number] CULTURE BLOOD [[id number]] (Normal) Collected: 10/25/22 0900 Lab Status: Final result Specimen: Blood Peripheral Updated: 10/30/22 1330 Culture No growth day 5 CULTURE BLOOD [[id number]] (Normal) Collected: 10/24/22 1313 Lab Status: Final result Specimen: Blood Peripheral Updated: 10/29/22 1632 Culture No growth day 5 MRSA DNA PCR [[id number]] (Normal) Collected: 10/23/22 1234 Lab Status: Final result Specimen: Microbiology from Nasal Updated: 10/23/222043 MRSA DNA by PCR Not detected Narrative: Methicillin-resistant Staphylococcus aureus (MRSA) DNA is not detected (presumed not colonized withMRSA). CULTURE BLOOD [[id number]] (Normal) Collected: 10/23/22 1216 Lab Status: Final result Specimen: Blood Peripheral Updated: 10/28/22 1702 Culture No growth day 5 CULTURE BLOOD [[id number]] (Normal) Collected: 10/23/22 1205 Lab Status: Final [...] presence of the primary team staff, residents, PT/OT/FIXED CAPITAL CLERK and CM/SW. Jaime Drew MD Vascular and [...] and patch angioplasty. 10/31: CT A/P obtained /2 concern for abscess by GI team while [...] intact bilaterally Labs: Recent Labs Component Name 11/04/22212723 2221 11/02/22 0132 10/23/22 0129 10/22/22 0153 [...] results for input(s): MG in the last 57963 hours. Recent Labs Component Name 11/04/22212711/04/2253 11/02/222220 PHOS 3.4 3.8 4.2 Recent Labs Component Name 11/05/22 0350 11/04/22212711/04/22 1617 11/04/22 0931 11/04/22 0553 11/03/22 2353 PT 15.5* - - - 14.5 14.2 INR 1.3 - - - 1.1 1.1 PTT 77.4* 53.3* 131.0* - 96.7* 77.9* - = values in this interval not displayed. No results for input(s): A1C in the last 98566 hours. Recent Labs Component Name 10/20/22 0302 06/15/22 0757 CHOL 173 204* HDL 42 37* LDLCALC 91 117* TRIG 201* 251* Recent Labs Component Name 06/15/22 0757 TSH 1.873 No results for input(s): CKMB, CKTOTAL, CKMB, TROPONINI, BNP in the last [address] ANGIO BRAIN NECK STROKE Result [...] Lopez OT - 11/05/2022 7:50 AM CDT [facility] Acute Rehab update: Patient not yet medically ready to transfer to [place] today. Per bedside RN Shahab, patient remains on heparin drip this morning. Notified team, no documented BM since 10/30. U CL will follow up tomorrow. Thanks! Gianna Lopez OTR/Amy Clinical Liaison [facility] [phone] * Susi Glez MD - 11/05/2022 7:29 [...] in [address] Kamari Mcfarlaen MD 11/05/2022 7:31 AM * Ventura Miguel [...] findings of outpatient SARAH. Lul Miguel PA-C [phone] * Awilda Li RN - 11/05/2022 6:37 [...] Lopez OT - 11/04/2022 2:40 PM CDT [facility] Acute Rehab update: Per Dr. Muller - patient likely to be medically ready for d/c tomorrow. Will follow up in the morning. Would have private room available at [facility]. Addendum: Per chart review, last documented BM 10/30 - would need more recent BM before patient can transfer to rehab once team determines she is medically ready. Thanks for referral, Gianna Lopez OTR/L Clinical Liaison [facility] [phone] * Jaime Drew MD - 11/04/2022 1:21 [...] Procedure Component Value - Date/Time CULTURE URINE [[id number]] (Normal) Collected: 10/27/22 1208 Lab Status: Final result Specimen: Urine Clean Catch Updated: 10/28/22 2236 Culture Urine No growth (<100 CFU/mL) CULTURE BLOOD FUNGUS [[id number]] (Normal) Collected: 10/27/22 115 Lab Status: Preliminary result Specimen: Blood Peripheral Updated: 10/30/22 0628 Culture No fungus isolated CULTURE BLOOD AFB [[id number]] (Normal) Collected: 10/27/221157 Lab Status: Preliminary result Specimen: Blood Peripheral Updated: 10/30/22 0750 Culture No acid-fast bacillus isolated BARTONELLA SPECIES PCR [[id number]] Collected: 10/27/221157 Lab Status: Final result Specimen: [...] developed and its performance characteristics determined by [facility]. It has not been cleared or approved by the US Food and Drug Administration. This test was performed in a CLIA certified laboratory and is intended for clinical purposes. Performed By: [facility] [address] [place] [address] [employer] Supervisor: Boo Bond MD, PhD CLIA Number: [id number] CULTURE BLOOD [[id number]] (Normal) Collected: 10/25/22 0900 Lab Status: Final result Specimen: Blood Peripheral Updated: 10/30/22 1330 Culture No growth day 5 CULTURE BLOOD [[id number]] (Normal) Collected: 10/24/22 1313 Lab Status: Final result Specimen: Blood Peripheral Updated: 10/29/22 1632 Culture No growth day 5 MRSA DNA PCR [[id number]] (Normal) Collected: 10/23/22 1234 Lab Status: Final result Specimen: Microbiology from Nasal Updated: 10/23/22 2044 MRSA DNA by PCR Not detected Narrative: Methicillin-resistant Staphylococcus aureus (MRSA) DNA is not detected (presumed not colonized withMRSA). CULTURE BLOOD [[id number]] (Normal) Collected: 10/23/22 1216 Lab Status: Final result Specimen: Blood Peripheral Updated: 10/28/22 1702 Culture No growth day 5 CULTURE BLOOD [[id number]] (Normal) Collected: 10/23/22 1205 Lab Status: Final [...] presence of the primary team staff, residents, PT/OT/FIXED CAPITAL CLERK and CM/SW. Jaime Drew MD Vascular and Interventional Neurology * Jovanni Mcgrath, PharmD - 11/04/2022 12:47 PM CDT ACTIVE CONSULTS TO PHARMACY/DISEASE STATE MONITORING Pharmacy Consult: Vancomycin ASSESSMENT/PLAN Indication: suspected infective endocarditis c/b septic emboli to IDENTIFICATION CLERK Goal Trough: 15-20 mcg/ml ID consulted/following: Yes [...] function and cultures as needed. Jovanni Mcgrath, ManuelD 12:41 PM 11/04/2022 [facility] Vancomycin Guideline SUBJECTIVE/OBJECTIVE Consuelo Darby is [...] 8 WBC - 13.3* 19.3* 20.6* 19.6* @[id number]@ Dialysis Orders (72h ago, onward) None Vancomycin [...] who is agreeable to private room at [facility] if it becomes available before [facility]. [facility] liaison aware and following for admission. Orientation Level: Oriented to Person: Family Support (Name and Phone): Extended Emergency Contact Information Primary Emergency Contact: Hi Darby Address: [address] [place] [address] [place] [address] [facility] Relation: Spouse Secondary Emergency Contact: Sandra Disla [facility] Mobile Relation: Mother Transportation at Discharge: Ambulance: READMISSION RISK SCORE is 16 at 12:46 PM 11/04/2022.: Name: JAYLENE Haines * Bess Triana [place] - 11/04/2022 11:14 AM CDT [facility] Physical Medicine and Rehabilitation Occupational Therapy Splint Check Note Patient Name Consuelo Darby Date of 1980 Age [age] year old Type of Splint: Left foot drop and resting hand Splint Issued by: Not applicable-follow up visit Splint Check Completed: No issues noted. Skin intact and splint fitting appropriately Treatment Plan: Testing Director education completed.; 2 hrs on 2 hrs [...] results for input(s): MG in the last 25883 hours. Recent Labs Component Name 11/04/22 0553 11/02/22 22211/02/22 0132 PHOS 3.8 4.2 4.5 Recent Labs Component Name 11/04/22 0553 11/03/22 2353 11/03/22 1626 11/03/22 1048 11/03/22 0449 PT 14.5 14.2 - - 15.1* INR 1.1 1.1 - - 1.2 PTT 96.7* 77.9* 58.8* - 89.3* - = values in this interval not displayed. No results for input(s): A1C in the last 60607 hours. Recent Labs Component Name 10/20/22 0302 06/15/22 0757 CHOL 173 204* HDL 42 37* LDLCALC 91 117* TRIG 201* 251* Recent Labs Component Name 06/15/22 0757 TSH 1.873 No results for input(s): CKMB, CKTOTAL, CKMB, TROPONINI, BNP in the last [address] ANGIO BRAIN NECK STROKE Result [...] results for input(s): MG in the last 85293 hours. Recent Labs Component Name 11/02/22222011/02/22 0132 [...] results for input(s): A1C in the last 96304 hours. Recent Labs Component Name 10/20/22 0302 06/15/22 0757 CHOL 173 204* HDL 42 37* LDLCALC 91 117* TRIG 201* 251* Recent Labs Component Name 06/15/22 0757 TSH 1.873 No results for input(s): CKMB, CKTOTAL, CKMB, TROPONINI, BNP in the last [address] ANGIO BRAIN NECK STROKE Result [...] Troy, OT - 11/03/2022 3:16 PM CDT [facility] Physical Medicine and Rehabilitation Occupational Therapy Progress Note Patient: Consuelo Darby Med Record Number: [id number] Date of : 1980 Age: [age] year old PPE worn by staff: gloves;mask - cardiovascular surgical tech: Cheli Recommendations: Discharge OT Discharge Recommendations: Patient [...] Appearance: Pt in bed upon arrival in [facility]. LDA: PIV, puentes catheter, PEG [...] ACTIVITY TOLERANCE: Patient's activity tolerance: good Modified Maryann: Current Modified [place] Score: 5 AM-PAC 6 Clicks Daily Activity [...] with good endurance and with minimal pain Prison Goal(s): Patient to discharge to appropriate next [...] obtained, pending private room. Pt agreeable to [facility] location. Please contact weekend liaison for bed availability if pt is medically ready for transfer. Liaison can be contacted by phone or [employer] Chat. ?? Weekend Liaison: Gianna Lopez Thank you for the referral. Becky Hinojosa RN, BSN Senior Clinical Liaison [facility] [phone] * Maru Mcduffie RN - 11/03/2022 12:39 [...] Information Primary Emergency Contact: Hi Darby Address: [address] [place] [id number] [facility] Relation: Spouse Secondary Emergency Contact: Sandra Disla [facility] Mobile Relation: Mother Transportation at Discharge: Ambulance: READMISSION RISK SCORE is 16 at 12:39 PM 11/03/2022.: Name: Maru Mcduffie RN 2776 * Salinas Infante MSW - 11/03/2022 10:35 AM CDT SW was notified pt recd for IRF/acute rehab. Previous SW spoke to [facility] and they are following up w/ pt family at bedside to discuss. SW to follow. 1110 - SW notified pt family agreeable to [facility] Rehab. JESSY also called and spoke w/ [...] Ankit Spivey - 11/03/2022 10:14 AM CDT [facility] Physical Medicine and Rehabilitation Physical Therapy Progress Note Patient: Consuelo Darby Med Record Number: [id number] Date of : 1980 Age: [age] year [...] monitoring of vitals and cognitive stimulation Modified [place]: Current Modified Maryann Score: 5 AM-PAC 6 [...] EOB x10 minutes with minimal assist ?? Resolution Analyst Goal(s): Patient to discharge to appropriate next [...] Pain affecting intake: No Estimated Needs: KCAL: 4827-8163 (30-35 kcal/kg IBW) Protein (g): 82g (1.5 [...] Troy, OT - 11/02/2022 12:52 PM CDT [facility] Physical Medicine and Rehabilitation Occupational Therapy Progress Note Patient: Consuelo Darby Med Record Number: [id number] Date of : 1980 Age: [age] year [...] Appearance: Pt in bed upon arrival in [facility]. LDA: PIV, puentes catheter, PEG [...] ACTIVITY TOLERANCE: Patient's activity tolerance: fair Modified [place]: Current Modified Maryann Score: 5 AM-PAC 6 [...] with good endurance and with minimal pain Prison Goal(s): Patient to discharge to appropriate next [...] reach, with family in room, with RN, Radha aware, with therapy cues visible on white board. * Shania Jha, PharmD - 11/02/2022 12:39 PM CDT ACTIVE CONSULTS TO PHARMACY Pharmacy Consult: Vancomycin ASSESSMENT/PLAN Indication: suspected infective endocarditis c/b septic emboli to IDENTIFICATION CLERK Goal Trough: 15-20 mcg/ml ID consulted/following: Yes [...] needed. Shania Jha, PharmD 12:30 PM 11/02/2022 [facility] Vancomycin Guideline SUBJECTIVE/OBJECTIVE Consuelo aDrby is [...] 8 11 WBC 19.3* 20.6* 19.6* 17.9* @[id number]@ Dialysis Orders (72h ago, onward) None Radiocontrast within 72 hours The 3 most recent administrations since 10/30/2022 are shown below each listed medication. Other Order Route Dose Action Date iopamidol (Isovue 370) 76 % contrast Intravenous 100 mL $ Given - Contrast 10/31/2022 iodixanol (Visipaque 320) injection Other 30 mL $ Given 10/30/2022 Vancomycin Administrations from [facility] (last 72 hours) Date/Time Action Medication Dose [...] Ankit Spivey - 11/02/2022 11:41 AM CDT [facility] Physical Medicine and Rehabilitation Physical Therapy Progress Note Patient: Consuelo Darby Med Record Number: [id number] Date of : 1980 Age: [age] year [...] monitoring of vitals and cognitive stimulation Modified [place]: Current Modified [place] Score: 5 AM-PAC 6 Clicks Mobility Raw [...] sit EOB x10 minutes with minimal assist Prison Goal(s): Patient to discharge to appropriate next [...] frontal gyrus/frontal operculum, consistent with an evolving mibozlcw-jy-lsuqhvc infarct. 4.No significant midline shift. Similar-appearing size [...] is dictated by Kayla Stevenson MD (residential installer) 1 I, Lonnie Rae MD have personally [...] is dictated by Miranda Bowen MD (residential installer) Oriana Ornelas MD have personally reviewed and [...] > Dictated by Clarisa Cantrell MD (residential installer). [employer] have personally reviewed and interpreted this [...] is dictated by Miranda Bowen MD (residential installer) Joni Ornelas MD have personally reviewed and [...] right lateral ventricle, and approximately 3-4 mm oyvjq-uk-hofp midline shift, grossly similar to the prior. [...] Report dictated by Tim Major MD (residential installer). I, Jasper Sifuentes MD have personally reviewed [...] be performed given no participation in of FIXED CAPITAL CLERK evaluation S/p peg placed 11/01 Recommendations: - [...] Jerod Calderon MD Gastroenterology & Hepatology Fellow [facility] Associated attestation - Khanh Metz MD - 11/02/2022 10:43 AM CDT I have personally seen and examined this patient. I agree with the house painter's findings, assessment and plan as outlined. Doing well. Some pain at PEG site Site clean, dry. No cellulitis CT reviewed. Good position May start TF's today * Bridgett Zazueta, FIXED CAPITAL CLERK - 11/02/2022 9:44 AM CDT [facility] Physical Medicine and Rehabilitation Bedside Swallow Assessment Patient: Consuelo Darby Med Record Number: [id number] Date of : 1980 Age: [age] year [...] clear and barely audible. Education/Interventions: While performing FIXED CAPITAL CLERK, Patient, spouse, mother and father and RN [...] oropharyngeal swallow function to warrant diet upgrade. Resolution Analyst Goal (s): Other: patient will tolerate least [...] results for input(s): MG in the last 77253 hours. Recent Labs Component Name 11/02/22 01311/01/22 [...] results for input(s): A1C in the last 72361 hours. Recent Labs Component Name 10/20/22 0302 06/15/22 0757 CHOL 173 204* HDL 42 37* LDLCALC 91 117* TRIG 201* 251* Recent Labs Component Name 06/15/22 0757 TSH 1.873 No results for input(s): CKMB, CKTOTAL, CKMB, TROPONINI, BNP in the last [address] ANGIO BRAIN NECK STROKE Result [...] for age, diagnosis and physical limitations 2022 1810 by Radha Covarrubias RN Outcome: [...] indication of glycemia balance is achieved 2022 1810 by Radha Covarrubias RN Outcome: [...] 2022 4:07 PM CDT Pt transferred to [facility], DOC and family notified. Four eyes skin check done with Jaye BOGGS, surgical sight to L. Head with carla, incision sight to R. Femoral area, puentes and L. Hand brace noted. * Cass Benjamin SLP - 2022 3:49 PM CDT [facility] Department of Physical Medicine & Rehabilitation Progress Note Patient: Consuelo Darby Med Record Number: [id number] Date of : 1980 Age: [age] year old 11/01/22 1549 Therapy on Hold Therapy on Hold Chart Reviewed; Pt s/p EGD with PEG under general anesthesia. New Order Required for Therapy Cass Lu M.S., [facility]-FIXED CAPITAL CLERK Speech Language Pathologist [id number] * Jerod Calderon [...] Jerod Calderon MD Gastroenterology & Hepatology Fellow [facility] * Elizabeth William PT - 2022 3:08 PM CDT [facility] Department of Physical Medicine & Rehabilitation Progress Note Patient: Consuelo Darby [employer] Record Number: [id number] Date of : 1980 Age: [age] year old 11/01/22 1508 Missed Visit Missed Visit Procedure Off Floor (going for PEG today) * Ronda Crawley OT - 2022 1:30 PM CDT [facility] Department of Physical Medicine & Rehabilitation Progress Note Patient: Consuelo Darby [employer] Record Number: [id number] Date of : 1980 Age: [age] year [...] results for input(s): MG in the last 43898 hours. Recent Labs Component Name 11/01/22 0003 [...] results for input(s): A1C in the last 99264 hours. Recent Labs Component Name 10/20/22 0302 06/15/22 0757 CHOL 173 204* HDL 42 37* LDLCALC 91 117* TRIG 201* 251* Recent Labs Component Name 06/15/22 0757 TSH 1.873 No results for input(s): CKMB, CKTOTAL, CKMB, TROPONINI, BNP in the last [address] ANGIO BRAIN NECK STROKE Result Date: 10/19/2022 PROCEDURE: CT ANGIO BRAIN NECK STROKE, DATE/TIME OF EXAM: 10/19/2022 8:16 AM, LOCATION [facility] INDICATION: Code Stroke ADDITIONAL CLINICAL INFORMATION: [...] DATE/TIME OF EXAM: 10/19/2022 8:04 AM, LOCATION [facility] INDICATION: Code Stroke ADDITIONAL CLINICAL INFORMATION: [...] occlusion of the R EIA + proximal BROADCAST PROGRAM DIRECTOR 10/26: reached goal aptt overnight. Neuro exam [...] for occlusion of R EIA and proximal BROADCAST PROGRAM DIRECTOR. Thrombectomy and patch angioplasty done 10/31: GI [...] occlusion of the R EIA + proximal BROADCAST PROGRAM DIRECTOR likely iatrogenic Plan Neurological R MCA M1 occlusion s/p MT with TICI 2B recanalization S/P TNK administration. S/P [facility] Malignant MCA syndrome - S/P hemicrani [...] - Diet: Goal TF Vital 55cc/hr, FWF [id number] - GI ppx: Lansoprozole - Last BM: [...] #Occlusion of the R EIA + proximal BROADCAST PROGRAM DIRECTOR likely iatrogenic - vascular surgery; OR today [...] Fariha Rosales MD Neurology Resident. PGY-3 [facility]. Associated attestation - Julio Cesar Arriaza [...] Barbara Arteaga - 10/31/2022 4:45 PM CDT Diesel Locomotive Crane Operator offered support to Consuelo, her Salo and mom Sandra; hog scraper asked if Consuelo hadgotten her peg today and Salo said she would get it in a day or two. Diesel Locomotive Crane Operator asked how Consuelo's vascular surgery went and Sandra shared that Consuelo's leg was hurting; Consuelo held up 4 fingers when asked to rate her pain scale. RN at bedside and indicated he had just administered pain meds. 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. chaplain Cici Ascom [id number] market investigator [id number] * Trevor Helton PharmD - 10/31/2022 3:33 PM CDT ACTIVE CONSULTS TO PHARMACY/DISEASE STATE MONITORING Pharmacy Consult: Vancomycin ASSESSMENT/PLAN Indication: suspected infective endocarditis c/b septic emboli to IDENTIFICATION CLERK with Goal Level: 15-20 mcg/ml ID consulted/following: [...] needed. Yoon Cuadra, PharmD 1:04 PM 10/31/2022 [facility] Vancomycin Guideline * Ronda Crawley OT - 10/31/2022 2:12 PM CDT [facility] Rehabilitation Occupational Therapy Splint [...] results for input(s): MG in the last 11165 hours. Recent Labs Component Name 10/31/22 0022 [...] results for input(s): A1C in the last 44373 hours. Recent Labs Component Name 10/20/22 0302 06/15/22 0757 CHOL 173 204* HDL 42 37* LDLCALC 91 117* TRIG 201* 251* Recent Labs Component Name 06/15/22 0757 TSH 1.873 No results for input(s): CKMB, CKTOTAL, CKMB, TROPONINI, BNP in the last [address] ANGIO BRAIN NECK STROKE Result Date: 10/19/2022 PROCEDURE: CT ANGIO BRAIN NECK STROKE, DATE/TIME OF EXAM: 10/19/2022 8:16 AM, LOCATION [facility] INDICATION: Code Stroke ADDITIONAL CLINICAL INFORMATION: [...] DATE/TIME OF EXAM: 10/19/2022 8:04 AM, LOCATION [facility] INDICATION: Code Stroke ADDITIONAL CLINICAL INFORMATION: [...] Other (Comment) (has not been assessed by FIXED CAPITAL CLERK) Pain affectingintake: No Estimated Needs: KCAL: [id number] (25-30kcal/kg of IBW) Protein (g): 66-77 (1.2-1.4gm/kg [...] 18 20 25 - ANIONGAP 13 13 - 14 - 13 12 11 [...] occlusion of the R EIA + proximal BROADCAST PROGRAM DIRECTOR 10/26: reached goal aptt overnight. Neuro exam [...] for occlusion of R EIA and proximal BROADCAST PROGRAM DIRECTOR. Thrombectomy and patch angioplasty done Interval History: [...] occlusion of the R EIA + proximal BROADCAST PROGRAM DIRECTOR likely iatrogenic Plan Neurological R MCA M1 occlusion s/p MT with TICI 2B recanalization S/P TNK administration. S/P [facility] Malignant MCA syndrome - S/P hemicrani [...] after hemicrani on 10/20. Extubated 10/24, to [place] - Bronchial hygiene q4h, vest and if [...] - Diet: Goal TF Vital 55cc/hr, FWF [id number] - GI ppx: Lansoprozole - Last BM: [...] #Occlusion of the R EIA + proximal BROADCAST PROGRAM DIRECTOR likely iatrogenic - vascular surgery; OR today [...] Fariha Rosales MD Neurology Resident. PGY-3 [facility]. Associated attestation - Julio Cesar Arriaza [...] frontal gyrus/frontal operculum, consistent with an evolving wrzwybvg-yr-fgpsjnv infarct. 4.No significant midline shift. Similar-appearing size [...] is dictated by Kayla Stevenson MD (residential installer) 1 I, Lonnie Rae MD have personally [...] is dictated by Miranda Bowen MD (residential installer) Oriana Ornelas MD have personally reviewed and [...] > Dictated by Clarisa Cantrell MD (residential installer). IAlexx have personally reviewed and interpreted this [...] is dictated by Miranda Bowen MD (residential installer) Joni Ornelas MD have personally reviewed and [...] right lateral ventricle, and approximately 3-4 mm wdyom-zo-tpix midline shift, grossly similar to the prior. [...] Report dictated by Tim Major MD (residential installer). I, Jasper Sifuentes MD have personally reviewed [...] be performed given no participation in of FIXED CAPITAL CLERK evaluation Patient seems to have a functional [...] Jerod Calderon MD Gastroenterology & Hepatology Fellow [facility] Associated attestation - Khanh Metz MD - 10/31/2022 2:27 PM CDT I have personally seen and examined this patient. I agree with the house painter's findings, assessment and plan as outlined. In [...] is dictated by Miranda Bowen MD (residential installer) Oriana Ornelas MD have personally reviewed and [...] > Dictated by Clarisa Cantrell MD (residential installer). [employer]Alexx have personally reviewed and interpreted this [...] is dictated by Miranda Bowen MD (residential installer) Joni Ornelas MD have personally reviewed and [...] right lateral ventricle, and approximately 3-4 mm cmjjg-dx-msfz midline shift, grossly similar to the prior. [...] Report dictated by Tim Major MD (residential installer). IJasper MD have personally reviewed and interpreted [...] occlusion of the R EIA + proximal BROADCAST PROGRAM DIRECTOR extending into the profunda with reconstitution identified [...] ABIs. Message sent to schedulers, please call [phone] to reschedule. Patient can call [phone] for any incision or wound concerns. Patient [...] Information Primary Emergency Contact: Hi Darby Address: [address] [place] [id number] [facility] Relation: Spouse Secondary Emergency Contact: Sandra Disla [facility] Mobile Relation: Mother Transportation at Discharge: Ambulance: READMISSION RISK SCORE is 15 at 7:22 PM 10/30/2022.: Name: Bulmaro Ochoa MOLDER TRIMMER pmo manager [phone] * Vickie Muller MD - 10/30/2022 6:26 PM CDT Stroke Service Daily Progress Note Consuelo Darby Age: [age] year old Date of : 1980 Date of Admission: 10/19/2022 Hospital Day: 11 Subjective Consuleo Darby is a 41yo M hemiplegic migraine, [...] Labs: Recent Labs Component Name 10/30/221610/29/22 0010 10/27/22202810/23/229 10/22/22 0153 WBC 17.9* 21.3* 21.1* - [...] results for input(s): MG in the last 48493 hours. Recent Labs Component Name 10/30/22 0017 [...] results for input(s): A1C in the last 63777 hours. Recent Labs Component Name 10/20/22 0302 06/15/22 0757 CHOL 173 204* HDL 42 37* LDLCALC 91 117* TRIG 201* 251* Recent Labs Component Name 06/15/22 0757 TSH 1.873 No results for input(s): CKMB, CKTOTAL, CKMB, TROPONINI, BNP in the last [address] ANGIO BRAIN NECK STROKE Result Date: 10/19/2022 PROCEDURE: CT ANGIO BRAIN NECK STROKE, DATE/TIME OF EXAM: 10/19/2022 8:16 AM, LOCATION [facility] INDICATION: Code Stroke ADDITIONAL CLINICAL INFORMATION: [...] DATE/TIME OF EXAM: 10/19/2022 8:04 AM, LOCATION [facility] INDICATION: Code Stroke ADDITIONAL CLINICAL INFORMATION: [...] Leigh SLP - 10/30/2022 1:30 PM CDT [facility] Department of Physical Medicine & Rehabilitation Progress Note Patient: Consuelo Darby Med Record Number: [id number] Date of : 1980 Age: [age] year old 10/30/22 1300 Therapy on Hold Therapy on Hold Surgery;Chart Reviewed;New Order Required for Therapy Jerry Valle M.A., [facility]-FIXED CAPITAL CLERK Speech Language Pathologist [id number] * Ronda Crawley OT - 10/30/2022 1:14 PM CDT [facility] Department of Physical Medicine & Rehabilitation Progress Note Patient: Consuelo Darby [facility] Record Number: [id number] Date of : 1980 Age: [age] year [...] occlusion of the R EIA + proximal BROADCAST PROGRAM DIRECTOR 10/26: reached goal aptt overnight. Neuro exam [...] for occlusion of R EIA and proximal BROADCAST PROGRAM DIRECTOR Objective BP 139/74 Pulse 80 Temp 98.1 [...] occlusion of the R EIA + proximal BROADCAST PROGRAM DIRECTOR likely iatrogenic Plan Neurological R MCA M1 occlusion s/p MT with TICI 2B recanalization S/P TNK administration. S/P [facility] Malignant MCA syndrome - S/P hemicrani [...] after hemicrani on 10/20. Extubated 10/24, to [place] - Bronchial hygiene q4h, vest and if [...] - Diet: Goal TF Vital 55cc/hr, FWF 595kgq0m - GI ppx: Lansoprozole - Last BM: [...] #Occlusion of the R EIA + proximal BROADCAST PROGRAM DIRECTOR likely iatrogenic - vascular surgery; OR today [...] Fariha Rosales MD Neurology Resident. PGY-3 [facility]. * Edgardo Suarez RN - 10/30/2022 10:53 AM CDT HOB elevated, Neuro checks, NPO for procedure, doppler RLE pedals. * Edgardo Suarez RN - 10/30/2022 9:50 AM CDT Report given to IT HELP DESK MANAGER. Pt trans to OR with RN and [...] thrombectomy - maintain normothermic and euglycemic - PT/OT/FIXED CAPITAL CLERK - outpt follow-up for 3mm left upper [...] 0010 10/28/22 0125 06/15/22 0757 12/09/18 0812 07/25/186 03/01/16 0817 [...] for occlusion of R EIA and proximal BROADCAST PROGRAM DIRECTOR Objective BP 129/61 Pulse 78 Temp 98.4 ??F (36.9 ??C) (Axillary) Resp 17 Ht 1.626 m (5' 4 ) Wt 95.3 kg (210 lb) SpO2 99% Temp (30hrs) Max:99 [...] Component Value Units Date/Time VANCOMYCIN LEVEL TROUGH [[id number]] Order Status: Sent Specimen: Blood PTT [facility] [[id number]] (Abnormal) Collected: 10/30/22236 Order Status: Completed Specimen: Blood Updated: 10/30/22325 APTT 77.7 Seconds Comment: Suggested therapeutic range for full dose I.V. unfractionated heparin therapy for venous thromboembolism is 71 to 109 seconds. PT-INR [facility] [[id number]] (Normal) Collected: 10/30/22236 Order Status: Completed Specimen: Blood Updated: 10/30/22325 PT 13.6 Seconds INR 1.0 Comment: The suggested therapeutic range for standard coumadin (warfarin) therapy is an INR of 2.0-3.0. For high-risk patients (Mechanical Mitral Valve Prosthesis, etc.), the suggested prophylactic therapeutic range is an INR of 2.5-3.5. PTT [facility] [[id number]] Order Status: Sent Specimen: Blood DIFFERENTIAL MANUAL [[id number]] (Abnormal) Collected: 10/30/2216 Order Status: Completed Specimen: [...] Increased Anisocytosis Occasional Macrocytosis Few Polychromasia Few Rios-Harlem Bodies Rare Ovalocytes Rare Eduardo Cells Occasional Smudge Cells Rare Comment Platelet Platelet clumpled on the smear but appear increased. HCG BETA BLOOD QUANTITATIVE [[id number]] Collected: 10/30/2216 Order Status: Completed Specimen: Blood [...] used for any other purposes. PHOSPHORUS BLOOD [[id number]] (Normal) Collected: 10/30/2216 Order Status: Completed Specimen: Blood Updated: 10/30/22102 Phosphorus 5.1 mg/dL MAGNESIUM BLOOD [[id number]] (Normal) Collected: 10/30/2216 Order Status: Completed Specimen: Blood Updated: 10/30/22102 Magnesium 2.1 mg/dL BASIC METABOLIC PANEL (CALCIUM TOTAL) [[id number]] (Abnormal) Collected: 10/30/2216 Order Status: Completed Specimen: Blood Updated: 10/30/22102 BUN 11 mg/dL Creatinine 0.61 mg/dL Sodium 141 mmol/L Potassium 4.0 mmol/L Chloride 107 mmol/L CO2 25 mmol/L Glucose 134 mg/dL Calcium 8.8 mg/dL Anion Gap 13 BUN/Creatinine Ratio 18 Osmolality Calculated 293 mOsm/kg eGFR by CKD-EPI >90 mL/min/1.73 m2 CBC W AUTO DIFFERENTIAL [[id number]] (Abnormal) Collected: 10/30/2216 Order Status: Completed Specimen: [...] Auto 1.0 /100 WBC HCG URINE QUALITATIVE [[id number]] Collected: 10/30/2220 Order Status: Canceled Specimen: Urine Updated: 10/30/2226 MYCOPLASMA PNEUMONIAE AB IGM [[id number]] Collected: 10/27/221157 Order Status: Completed Specimen: Blood [...] more than 12 months post-infection. Performed By: [facility] [address] [place] [address] [employer] Supervisor: Boo Bond MD, PhD CLIA Number: [id number] MYCOPLASMA PNEUMONIAE AB IGG [[id number]] Collected: 10/27/221157 Order Status: Completed Specimen: Blood [...] other is below 0.20 U/L. Performed By: [facility] [address] [place] [address] [employer] Supervisor: Boo Bond MD, PhD CLIA Number: [id number] BARTONELLA HENSELAE ANTIBODY IGM [[id number]] Collected: 10/27/221157 Order Status: Completed Specimen: Blood [...] developed and its performance characteristics determined by [facility]. It has not been cleared or approved by the [place] Food and Drug Administration. This test was performed in a CLIA certified laboratory and is intended for clinical purposes. Performed By: [facility] [address] [place] [address] [employer] Supervisor: Boo Bond MD, PhD CLIA Number: [id number] BARTONELLA HENSELAE ANTIBODY IGG [[id number]] Collected: 10/27/221157 Order Status: Completed Specimen: Blood [...] developed and its performance characteristics determined by [facility]. It has not been cleared or approved by the [place] Food and Drug Administration. This test was performed in a CLIA certified laboratory and is intended for clinical purposes. Performed By: [facility] [address] [place] [address] [employer] Supervisor: Boo Bond MD, PhD CLIA Number: [id number] CHLAMYDIA ANTIBODY IGG/IGM PANEL [[id number]] Collected: 10/27/22 1158 Order Status: Completed Specimen: Blood Updated: 10/29/222 C Pneumoniae Antibody IgG Titer <1:64 Chlamydia [...] developed and its performance characteristics determined by [facility]. It has not been cleared or approved by the [place] Food and Drug Administration. This test was performed in a CLIA certified laboratory and is intended for clinical purposes. Performed By: [facility] [address] [place] [address] [employer] Supervisor: Boo Bond MD, PhD CLIA Number: [id number] PTT [facility] [[id number]] (Abnormal) Collected: 10/29/222001 Order Status: Completed Specimen: Blood Updated: 10/29/22 204 APTT 70.7 Seconds Comment: Suggested therapeutic range for full dose I.V. unfractionated heparin therapy for venous thromboembolism is 71 to 109 seconds. PTT [facility] [[id number]] (Abnormal) Collected: 10/29/22 1541 Order Status: Completed Specimen: Blood Updated: 10/29/22 1628 APTT 64.4 Seconds Comment: Suggested therapeutic range for full dose I.V. unfractionated heparin therapy for venous thromboembolism is 71 to 109 seconds. PTT [facility] [[id number]] (Abnormal) Collected: 10/29/22 1004 Order Status: Completed [...] is dictated by Kayla Stevenson MD (residential installer) 1 I, Lonnie Rae MD have personally [...] is dictated by Miranda Bowen MD (residential installer) Oriana Ornelas MD have personally reviewed and [...] > Dictated by Clarisa Cantrell MD (residential installer). Alexx Ornelas have personally reviewed and interpreted [...] is dictated by Miranda Bowen MD (residential installer) Joni Ornelas MD have personally reviewed and [...] right lateral ventricle, and approximately 3-4 mm fmgtc-in-yqun midline shift, grossly similar to the prior. [...] Report dictated by Tim Major MD (residential installer). Jasper Ornelas MD have personally reviewed and interpreted this examination/study. > Interpreting Provider: Jasper Sifuetnes MD on 10/24/2022 1:[address] HEAD WO CONTRAST Result Date: 10/23/2022 IMPRESSION: 1.Redemonstration of postsurgical changes of decompressive craniectomy and evolving right middle cerebral artery territory infarct. 2.No hemorrhagic transformation. 3.Extensive cytotoxic edema and mass effect with approximately 2 mm midline shift, [place] similar or slightly improved from prior. 4.Stable right intracranial pressure monitor. The report is dictated by Miranda Bowen MD(residential installer) Jasper Ornelas MD have personally reviewed and [...] hemorrhage. Report dictated by Lorenzo Horta MD (vice president sales). ILonnie MD have personally reviewed and [...] prior. > Dictated by Bassam Jovel M.D. (vice president sales) Gonzalez Ornelas MD have personally reviewed [...] febrile Gastrointestinal # Hx of GERD - FIXED CAPITAL CLERK swallow evaluation: when stable - Diet: NG [...] #Occlusion of the R EIA + proximal BROADCAST PROGRAM DIRECTOR likely iatrogenic - vascular surgery following - [...] Cordero Kyle Johan Medical Student, MS3 [facility]. Associated attestation - Julio Cesar Arriaza [...] is dictated by Miranda Bowen MD (residential installer) Oriana Ornelas MD have personally reviewed and [...] discussed with Dr. Mohr by Dr. Clarisa Catnrell at 10/25/2022 3:03 PM with read back comprehension and verification. > Dictated by Clarisa Cantrell MD (residential installer). IAlexx have personally reviewed and interpreted this [...] is dictated by Miranda Bowen MD (residential installer) Joni Ornelas MD have personally reviewed and [...] right lateral ventricle, and approximately 3-4 mm npxbf-yl-zrdm midline shift, grossly similar to the prior. [...] Report dictated by Tim Major MD (residential installer). I, Jasper Sifuentes MD have personally reviewed [...] occlusion of the R EIA + proximal BROADCAST PROGRAM DIRECTOR extending into the profunda with reconstitution identified [...] occlusion of the R EIA + proximal BROADCAST PROGRAM DIRECTOR 10/26: reached goal aptt overnight. Neuro exam [...] occlusion of the R EIA + proximal BROADCAST PROGRAM DIRECTOR likely iatrogenic Plan Neurological R MCA M1 occlusion s/p MT with TICI 2B recanalization S/P TNK administration. S/P [facility] Malignant MCA syndrome - S/P hemicrani [...] after hemicrani on 10/20. Extubated 10/24, to [place] - Bronchial hygiene q4h, vest and if [...] - Diet: Goal TF Vital 55cc/hr, FWF [id number] - GI ppx: Lansoprozole - Last BM: [...] #Occlusion of the R EIA + proximal BROADCAST PROGRAM DIRECTOR likely iatrogenic - vascular surgery following - [...] Paris Mohr MD Neurology Resident. PGY-3 [facility]. Associated attestation - Shahbaz Bowen MD [...] 10/25: Incidentally clot found in the R BROADCAST PROGRAM DIRECTOR, non-occlusive, with good pulses peripherally. 10/26: no [...] to find an infection this likely is community representative of an inflammatory response from CVA [...] results for input(s): MG in the last 53071 hours. Recent Labs Component Name 10/29/22910/28/225 10/27/22 0054 PHOS 4.8 3.9 3.5 Recent [...] results for input(s): A1C in the last 83757 hours. Recent Labs Component Name 10/20/22 0302 06/15/22 0757 CHOL 173 204* HDL 42 37* LDLCALC 91 117* TRIG 201* 251* Recent Labs Component Name 06/15/22 0757 TSH 1.873 No results for input(s): CKMB, CKTOTAL, CKMB, TROPONINI, BNP in the last [address] ANGIO BRAIN NECK STROKE Result Date: 10/19/2022 PROCEDURE: CT ANGIO BRAIN NECK STROKE, DATE/TIME OF EXAM: 10/19/2022 8:16 AM, LOCATION [facility] INDICATION: Code Stroke ADDITIONAL CLINICAL INFORMATION: [...] DATE/TIME OF EXAM: 10/19/2022 8:04 AM, LOCATION [facility] INDICATION: Code Stroke ADDITIONAL CLINICAL INFORMATION: [...] swallow. TF - Consider PEG tube - FIXED CAPITAL CLERK swallow evaluation Renal/Electrolytes ? No acute issues [...] Hamm COTA - 10/29/2022 1:02 PM CDT [facility] Occupational Therapy Splint [...] 4.8 3.9 3.5 Recent Labs Component Name 10/19/2206/15/23 0757 12/09/18 0812 PROT 7.7 7.5 - [...] is dictated by Miranda Bowen MD (residential installer) Oriana Ornelas MD have personally reviewed and [...] > Dictated by Clarisa Cantrell MD (residential installer). Alexx Ornelas have personally reviewed and interpreted [...] is dictated by Miranda Bowen MD (residential installer) Joni Ornelas MD have personally reviewed and [...] right lateral ventricle, and approximately 3-4 mm tjksn-fe-kwaa midline shift, grossly similar to the prior. [...] Report dictated by Tim Major MD (residential installer). IJasper MD have personally reviewed and interpreted [...] occlusion of the R EIA + proximal BROADCAST PROGRAM DIRECTOR extending into the profunda with reconstitution identified [...] Hamm COTA - 10/28/2022 3:25 PM CDT [facility] Occupational Therapy Splint [...] ASSESSMENT/PLAN Indication: endocarditis c/b septic emboli to IDENTIFICATION CLERK Goal trough: 15-20 mcg/mL Assessment: ?? Day [...] TBD Lucretia Barrett PharmD 10/28/2022 3:16 PM [facility] Vancomycin Guideline * Valdez Oshea RN [...] results for input(s): MG in the last 18113 hours. Recent Labs Component Name 10/28/22 0125 [...] results for input(s): A1C in the last 32413 hours. Recent Labs Component Name 10/20/22 0302 06/15/22 0757 CHOL 173 204* HDL 42 37* LDLCALC 91 117* TRIG 201* 251* Recent Labs Component Name 06/15/22 0757 TSH 1.873 No results for input(s): CKMB, CKTOTAL, CKMB, TROPONINI, BNP in the last [address] ANGIO BRAIN NECK STROKE Result Date: 10/19/2022 PROCEDURE: CT ANGIO BRAIN NECK STROKE, DATE/TIME OF EXAM: 10/19/2022 8:16 AM, LOCATION [facility] INDICATION: Code Stroke ADDITIONAL CLINICAL INFORMATION: [...] DATE/TIME OF EXAM: 10/19/2022 8:04 AM, LOCATION [facility] INDICATION: Code Stroke ADDITIONAL CLINICAL INFORMATION: [...] swallow. TF - Consider PEG tube - FIXED CAPITAL CLERK swallow evaluation Renal/Electrolytes ? No acute issues [...] occlusion of the R EIA + proximal BROADCAST PROGRAM DIRECTOR 10/26: reached goal aptt overnight. Neuro exam [...] occlusion of the R EIA + proximal BROADCAST PROGRAM DIRECTOR likely iatrogenic Plan Neurological R MCA M1 [...] after hemicrani on 10/20. Extubated 10/24, to [place] - Bronchial hygiene q4h, vest and if [...] - Diet: Goal TF Vital 55cc/hr, FWF [id number] - GI ppx: Lansoprozole - Last BM: 10/22 - BM regimen: senna and miralax Endocrine Patient was taking oral contraceptive home medication. - A1c 6.0 - Accuchecks Hematology Recent Labs Component Name 10/27/22202810/27/22 0054 WBC 21.1* 19.5* HGB 7.6* 8.0* HCT 24.2* 24.6* PLTCOUNT 486* 519* PLATELET - Occasional* #Occlusion of the R EIA + proximal BROADCAST PROGRAM DIRECTOR likely iatrogenic - vascular surgery following - [...] Tim Marinelli MD Neurology Resident. PGY-4 [facility]. Associated attestation - Shahbaz Bowen MD [...] 10/25: Incidentally clot found in the R BROADCAST PROGRAM DIRECTOR, non-occlusive, with good pulses peripherally. 10/26: no [...] to find an infection this likely is community representative of an inflammatory response from CVA [...] occlusion of the R EIA + proximal BROADCAST PROGRAM DIRECTOR 10/26: reached goal aptt overnight. Neuro exam [...] occlusion of the R EIA + proximal BROADCAST PROGRAM DIRECTOR likely iatrogenic Plan Neurological ICP 12-21 LEONCIO [...] after hemicrani on 10/20. Extubated 10/24, to [place] - Bronchial hygiene q4h, vest and if [...] - Diet: Goal TF Vital 55cc/hr, FWF [id number] - GI ppx: Lansoprozole - Last BM: 10/22 - BM regimen: senna and miralax Endocrine Patient was taking oral contraceptive home medication. - A1c 6.0 - Accuchecks Hematology Recent Labs Component Name 10/27/22 0054 WBC 19.5* HGB 8.0* HCT 24.6* PLTCOUNT 519* PLATELET Occasional* #Occlusion of the R EIA + proximal BROADCAST PROGRAM DIRECTOR likely iatrogenic - vascular surgery following - [...] Paris Mohr MD Neurology Resident. PGY-3 [facility]. Associated attestation - Shahbaz Bowen MD [...] 10/25: Incidentally clot found in the R BROADCAST PROGRAM DIRECTOR, non-occlusive, with good pulses peripherally. 10/26: no [...] to find an infection this likely is community representative of an inflammatory response from CVA + return of euvolemia. Continuing with ceftriaxone and vanc. Critical Care 30-74 minutes: 40 mins (Time involved in the performance of separately billable procedures, teaching, or reviewing educational material was not counted towards critical care time.) * Sima Gardner, JOSETTE - 10/27/2022 3:56 PM CDT [facility] Physical Medicine and Rehabilitation Swallow Treatment Patient: Consuelo Darby [facility] Record Number: [id number] Date of : 1980 Age: [age] year [...] Pharyngeal: (P) Moderate;Severe (Suspected) Treatment/Education/Interventions: While performing FIXED CAPITAL CLERK, Patient and spouse was instructed in: results of swallow evaluation and recommendations for NPO status given patient's elevated aspiration risk. Patient demonstrated Questionable understanding of instructions given. Nurse contacted regarding results of treatment session. INFORMED CONSENT TO TREATMENT: Plan of care is discussed but patient with questionable understanding. Short Term Goals Patient will participate in an instrumental swallow assessment as appropriate. Resolution Analyst Goal (s): Patient to discharge to appropriate [...] results for input(s): MG in the last 07450 hours. Recent Labs Component Name 10/27/22 0054 [...] results for input(s): A1C in the last 90343 hours. Recent Labs Component Name 10/20/22 0302 06/15/22 0757 CHOL 173 204* HDL 42 37* LDLCALC 91 117* TRIG 201* 251* Recent Labs Component Name 06/15/22 075 TSH 1.873 No results for input(s): CKMB, CKTOTAL, CKMB, TROPONINI, BNP in the last [address] ANGIO BRAIN NECK STROKE Result Date: 10/19/2022 PROCEDURE: CT ANGIO BRAIN NECK STROKE, DATE/TIME OF EXAM: 10/19/2022 8:16 AM, LOCATION [facility] INDICATION: Code Stroke ADDITIONAL CLINICAL INFORMATION: [...] DATE/TIME OF EXAM: 10/19/2022 8:04 AM, LOCATION [facility] INDICATION: Code Stroke ADDITIONAL CLINICAL INFORMATION: [...] - NPO until passes swallow. TF - FIXED CAPITAL CLERK swallow evaluation Renal/Electrolytes ? No acute issues [...] Extended Emergency Contact Information Primary Emergency Contact: PjHi calvo Address: [address] [place] [id number] [facility] Relation: Spouse Secondary Emergency Contact: Sandra Disla [facility] Mobile Relation: Mother Transportation at Discharge: Ambulance: READMISSION RISK SCORE is 15 at 2:22 PM 10/27/2022.: Name: Bulmaro Ochoa RN BSN pmo manager [phone] * Agnes Erazo PT - 10/27/2022 11:46 AM CDT [facility] Physical Medicine and Rehabilitation Physical Therapy Re-evaluation Note Patient: Consuelo Darby Med Record Number: [id number] Date of : 1980 Age: [age] year [...] bed mobility training and balance activities Modified [place]: Current Modified [place] Score: 5 AM-PAC 6 Clicks Mobility Raw [...] sit EOB x10 minutes with minimal assist Prison Goal(s): Patient to discharge to appropriate next [...] Crawley, OT - 10/27/2022 8:57 AM CDT [facility] Physical Medicine and Rehabilitation Occupational Therapy Re-Evaluation Note Patient: Consuelo Darby Med Record Number: [id number] Date of : 1980 Age: [age] year [...] Additional Information (OT): 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 Prior Level of Functioning: Mobility: Ambulate-In Community;Independent;Without [...] TOLERANCE: Patient's activity tolerance: poor plus. Modified [place]: Current Modified Maryann Score: 5 AM-PAC 6 [...] with good endurance and with minimal pain Prison Goal(s): Patient to discharge to appropriate next [...] MD - 10/27/2022 8:46 AM CDT [facility] Infectious Diseases Progress Note Date of Admission: 10/19/2022 7:53 AM Length of Stay: Day 8 Room: [facility]/ Attending: Emir Vail MD Subjective Since [...] will need to follow up in the [facility] ID clinic; we will schedule appointment While on outpatient IV antibiotics, they will need weekly CBC with diff, CMP to monitor for adverseevents These labs will need to be faxed to [phone] (attention: Liam Parks MD) Infectious Disease will [...] Liam Parks MD (PGY-5) Infectious Diseases Fellow [facility] Medicine Pager: [phone] ID Clinic Associated attestation - Arturo Delacruz [...] of care. . Arturo Delacruz MD PhD Retail Sales Manager [facility] Infectious Disease * Consuelo Prado - 10/27/2022 [...] Value Units Date/Time BARTONELLA HENSELAE ANTIBODY IGM [[id number]] Order Status: Sent Specimen: Blood BARTONELLA HENSELAE ANTIBODY IGG [[id number]] Order Status: Sent Specimen: Blood Q FEVER IGG/IGM AB PANEL RFLX TITER [[id number]] Order Status: Sent Specimen: Blood CHLAMYDIA ANTIBODY IGG/IGM PANEL [[id number]] Order Status: Sent Specimen: Blood MYCOPLASMA PNEUMONIAE AB IGG [[id number]] Order Status: Sent Specimen: Blood MYCOPLASMA PNEUMONIAE AB IGM [[id number]] Order Status: Sent Specimen: Blood PTT [facility] [[id number]] Order Status: Sent Specimen: Blood GLUCOSE - POINT OF CARE [[id number]] (Abnormal) Collected: 10/27/22632 Order Status: Completed Specimen: Blood Updated: 10/27/22638 Glucose WB/POC 128 mg/dL Specimen Type Cap Fingerstick PTT [facility] [[id number]] (Abnormal) Collected: 10/27/22607 Order Status: Completed Specimen: Blood Updated: 10/27/22636 APTT 58.6 Seconds Comment: Suggested therapeutic range for full dose I.V. unfractionated heparin therapy for venous thromboembolism is 71 to 109 seconds. PT-INR [facility] [[id number]] (Normal) Collected: 10/27/22607 Order Status: Completed Specimen: Blood Updated: 10/27/22635 PT 13.7 Seconds INR 1.1 Comment: The suggested therapeutic range for standard coumadin (warfarin) therapy is an INR of 2.0-3.0. For high-risk patients (Mechanical Mitral Valve Prosthesis, etc.), the suggested prophylactic therapeutic range is an INR of 2.5-3.5. DIFFERENTIAL MANUAL [[id number]] (Abnormal) Collected: 10/27/2253 Order Status: Completed Specimen: [...] Rare Large Platelet Count Occasional PHOSPHORUS BLOOD [[id number]] (Normal) Collected: 10/27/2253 Order Status: Completed Specimen: Blood Updated: 10/27/22127 Phosphorus 3.5 mg/dL MAGNESIUM BLOOD [[id number]] (Normal) Collected: 10/27/2253 Order Status: Completed Specimen: Blood Updated: 10/27/22127 Magnesium 2.0 mg/dL BASIC METABOLIC PANEL (CALCIUM TOTAL) [[id number]] (Abnormal) Collected: 10/27/2253 Order Status: Completed Specimen: Blood Updated: 10/27/22127 BUN 11 mg/dL Creatinine 0.53 mg/dL Sodium 138 mmol/L Potassium 3.5 mmol/L Chloride 107 mmol/L CO2 24 mmol/L Glucose 137 mg/dL Calcium 8.4 mg/dL Anion Gap 11 BUN/Creatinine Ratio 21 Osmolality Calculated 288 mOsm/kg eGFR by CKD-EPI >90 mL/min/1.73 m2 PTT [facility] [[id number]] (Abnormal) Collected: 10/27/2253 Order Status: Completed Specimen: Blood Updated: 10/27/22124 APTT 59.5 Seconds Comment: Suggested therapeutic range for full dose I.V. unfractionated heparin therapy for venous thromboembolism is 71 to 109 seconds. CBC W AUTO DIFFERENTIAL [[id number]] (Abnormal) Collected: 10/27/22 0054 Order Status: Completed Specimen: Blood Updated: 10/27/22 0123 WBC 19.5 10??3/uL RBC 2.60 10??6/uL Hemoglobin 8.0 g/dL Hematocrit 24.6 % MCV 94.6 fL MCH 30.8 pg MCHC 32.5 g/dL RDW-SD 45.8 fL RDW-CV 13.5 % Platelet Count 519 10??3/uL MPV 10.1 fL nRBC Absolute 0.08 10??3/uL nRBC Auto 0.4 /100 WBC PTT [facility] [[id number]] (Abnormal) Collected: 10/26/222 Order Status: Completed Specimen: Blood Updated: 10/26/222145 APTT 65.0 Seconds Comment: Suggested therapeutic range for full dose I.V. unfractionated heparin therapy for venous thromboembolism is 71 to 109 seconds. GLUCOSE - POINT OF CARE [[id number]] (Abnormal) Collected: 10/26/221832 Order Status: Completed Specimen: Blood Updated: 10/26/22 1834 Glucose WB/POC 122 mg/dL Specimen Type Cap Fingerstick FACTOR V LEIDEN MUTATION PANEL [[id number]] Collected: 10/21/22 0459 Order Status: Completed Specimen: Blood Updated: 10/26/22 1746 Factor V Leiden Source Whole Blood Factor V Leiden PCR/FRET Negative Comment: Indication for testing: Assess genetic risk for thrombosis. NEGATIVE: The factor V Leiden variant, c.1601G>A; p.Pnl809Bwp, was not detected. This does not exclude [...] function in the F5 gene variant c.1601G>A (p.Qgo083Qqz). Legacy nomenclature: R506Q (1691G>A) CLINICAL SENSITIVITY: 20-50 percent of individuals with an isolated VTE have the FVL variant. METHODOLOGY: Polymerase chain reaction and fluorescence monitoring. ANALYTICAL SENSITIVITY AND SPECIFICITY: 99 percent. LIMITATIONS: Diagnostic errors can occur due to rare sequence variations. F5 gene mutations, other than p.Mlt886Och, will not be detected. This test was developed and its performance characteristics determined by [facility]. It has not been cleared or approved by the [place] Food and Drug Administration. This test was performed in a CLIA certified laboratory and is intended for clinical purposes. Counseling and informed consent are recommended for genetic testing. Consent forms are available online. Performed By: [facility] [address] [place] [address] [employer] Supervisor: Boo Bond MD, PhD CLIA Number: [id number] PTT [facility] [[id number]] (Abnormal) Collected: 10/26/22 1559 Order Status: Completed Specimen: Blood Updated: 10/26/22 1635 APTT 52.9 Seconds Comment: Suggested therapeutic range for full dose I.V. unfractionated heparin therapy for venous thromboembolism is 71 to 109 seconds. GLUCOSE - POINT OF CARE [[id number]] (Abnormal) Collected: 10/26/22 1215 Order Status: Completed Specimen: Blood Updated: 10/26/22 1216 Glucose WB/POC 122 mg/dL Specimen Type Cap Fingerstick PTT [facility] [[id number]] Order Status: Canceled Specimen: Blood PTT [facility] [[id number]] (Abnormal) Collected: 10/26/22 1124 Order Status: Completed Specimen: Blood Updated: 10/26/22 1155 APTT 51.1 Seconds Comment: Suggested therapeutic range for full dose I.V. unfractionated heparin therapy for venous thromboembolism is 71 to 109 seconds. CARDIOLIPIN ANTIBODY IGA [[id number]] Collected: 10/23/222028 Order Status: Completed Specimen: Blood Updated: 10/26/22 1011 Cardiolipin Antibody IgA <10 APL Comment: INTERPRETIVE INFORMATION: Cardiolipin Antibodies, IgA <=11 APL: Negative 12-19 APL: Indeterminate 20-80 APL: Low to Moderately Positive 81 APL or above: High Positive Performed By: [facility] [address] [place] [address] [employer] Supervisor: Boo Bond MD, PhD CLIA Number: [id number] VANCOMYCIN LEVEL TROUGH [[id number]] (Normal) Collected: 10/26/22 0838 Order Status: Completed [...] is dictated by Miranda Bowen MD (residential installer) I, Oriana Suarez MD have personally reviewed [...] > Dictated by Clarisa Cantrell MD (residential installer). IAlexx have personally reviewed and interpreted this [...] is dictated by Miranda Bowen MD (residential installer) Joni Ornelas MD have personally reviewed and [...] right lateral ventricle, and approximately 3-4 mm aptww-sm-uvgz midline shift, grossly similar to the prior. [...] Report dictated by Tim Major MD (residential installer). Jasper Ornelas MD have personally reviewed and [...] report is dictated by Miranda Bowen MD(residential installer) Jasper Ornelas MD have personally reviewed and [...] hemorrhage. Report dictated by Lorenzo Horta MD (vice president sales). I, Yihua Rae, MD have personally reviewed and interpreted this [...] prior. > Dictated by Bassam Jovel M.D. (vice president sales) Gonzalez Ornelas MD have personally reviewed [...] febrile Gastrointestinal # Hx of GERD? - FIXED CAPITAL CLERK swallow evaluation:??when stable - Diet:??NG tube - [...] bedside? Consuelo Brown Medical Student, MS3 [facility]. * Emir Vail MD - 10/27/2022 [...] is dictated by Miranda Bowen MD (residential installer) Oriana Ornelas MD have personally reviewed and [...] > Dictated by Clarisa Cantrell MD (residential installer). Alexx Ornelas have personally reviewed and interpreted [...] is dictated by Miranda Bowen MD (residential installer) Joni Ornelas MD have personally reviewed and [...] right lateral ventricle, and approximately 3-4 mm aiwvi-fr-vehi midline shift, grossly similar to the prior. [...] Report dictated by Tim Major MD (residential installer). IJasper MD have personally reviewed and interpreted [...] occlusion of the R EIA + proximal BROADCAST PROGRAM DIRECTOR extending into the profunda with reconstitution identified [...] status: Occupational History ??? 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 Smoking status: [...] Yvan Booth MD as PCP - General Benita, Jean Ball MD as PCP - Jaden Garcia DO [...] appropriately interactive. NEURO: Following commands. 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 MSK: No synovitis, dactylitis, or enthesitis. [...] Range INR 0.9 0.9 - 1.2 Device [id number] Administrative Fellow ID [id number] EKG 12-LEAD Result Value Ref Range Ventricular Rate 129 BPM Atrial Rate 129 BPM P-R Interval 134 ms QRS Duration ms 90 ms Q-T Interval ms 318 ms QTC Calculation (Bezet) 465 ms Calculated P Robards 55 degrees Calculated R Robards 13 degrees Calculated T Robards 5 degrees Interpretation EKG SINUS TACHYCARDIA OTHERWISE NORMAL ECG NO PREVIOUS ECGS AVAILABLE Confirmed by FLORA OTT MD [id number]) on 10/19/2022 5:38:23 PM CBC W AUTO [...] by CKD-EPI >90 >=90 mL/min/1.73 m2 PT-INR [facility] Result Value Ref Range PT 12.3 [...] BUBBLE STUDY Result Value Ref Range BSA 2.8090020 m2 LV biplane EF 64 54 - [...] Age Predicted HR 181 Target HR 154 [id number] 6.054 cm XRPBP8SX 5.318 cm LEFT VENTRICLE STROKE VOLUME BIPLANE [...] right lateral ventricle, and approximately 3-4 mm bzkkq-az-dqsa midline shift, grossly similar to the prior. [...] Jasso. ?? Josue Castellanos MD Rheumatology Fellow [facility] Associated attestation - Gonzalez Jasso MD [...] Rheumatology Fellowship Program Department of Internal Medicine [facility] * Liv Lugo MD - 10/26/2022 [...] Erazo, PT - 10/26/2022 1:15 PM CDT [facility] Department of Physical Medicine & Rehabilitation Progress Note Patient: Consuelo Darby Med Record Number: [id number] Date of : 1980 Age: [age] year old 10/26/22 1300 Missed Visit Missed Visit Other (Comment) (awaiting helmet) * Yoon Cuadra PharmD - 10/26/2022 12:54 PM CDT Vancomycin Per Pharmacy - Follow-Up Note Subjective Consuelo Darby is a 41 year old female receiving vancomycin dosed per pharmacy. Indication for anti-infective therapy: suspected infection Site of anti-infective therapy: IDENTIFICATION CLERK. Goal trough 15-20 mcg/mL. Objective Day of [...] monitor patient's renal function. Please contact the [facility] pharmacy department ([phone]) with any questions. Yoon Cuadra PharmD 10/26/2022 12:47 PM Resources: Vancomycin Protocol * Jerry Leigh, JOSETTE - 10/26/2022 11:55 AM CDT [facility] Physical Medicine and Rehabilitation Bedside Swallow Assessment Patient: Consuelo Darby Med Record Number: [id number] Date of : 1980 Age: [age] year [...] Impression - Pharyngeal: Moderate Education/Interventions: While performing FIXED CAPITAL CLERK, Patient and spouse was instructed in: goals [...] precautions., Patient will follow recommended swallowing strategies. Prison Goal (s): Patient to be independent/baseline with functional mobility and self care and be able to safely discharge to prior level of care. Jerry Valle M.A., [facility]-FIXED CAPITAL CLERK Speech Language Pathologist [phone] * Pardeep Parks [...] Crawley OT - 10/26/2022 11:34 AM CDT [facility] Department of Physical Medicine & Rehabilitation Progress Note Patient: Consuelo Darby [facility] Record Number: [id number] Date of : 1980 Age: [age] year [...] Information Primary Emergency Contact: Hi Darby Address: [address] [place] [address] [place] [address] [facility] Relation: Spouse Secondary Emergency Contact: Sandra Disla [facility] Mobile Relation: Mother Transportation at Discharge: Ambulance: READMISSION RISK SCORE is 14 at 9:22 AM 10/26/2022.: Name: Bulmaro Ochoa RN BSN pmo manager [phone] * Vickie Muller MD - 10/26/2022 9:18 [...] results for input(s): MG in the last 12293 hours. Recent Labs Component Name 10/26/22 0002 10/25/22 0007 10/23/222028 PHOS 3.5 3.7 3.1 Recent Labs Component Name 10/26/22 0647 10/26/22 0426 10/26/22 0155 10/25/22 2102 10/25/22 1641 10/23/222028 PT - 13.6 - - 13.4 13.4 INR - 1.0 - - 1.0 1.0 PTT 44.3* - 20.5* 33.3 24.8 21.4* No results for input(s): A1C in the last 30144 hours. Recent Labs Component Name 10/20/22 0302 06/15/22 0757 CHOL 173 204* HDL 42 37* LDLCALC 91 117* TRIG 201* 251* Recent Labs Component Name 06/15/22 0757 TSH 1.873 No results for input(s): CKMB, CKTOTAL, CKMB, TROPONINI, BNP in the last [address] ANGIO BRAIN NECK STROKE Result Date: 10/19/2022 PROCEDURE: CT ANGIO BRAIN NECK STROKE, DATE/TIME OF EXAM: 10/19/2022 8:16 AM, LOCATION [facility] INDICATION: Code Stroke ADDITIONAL CLINICAL INFORMATION: [...] DATE/TIME OF EXAM: 10/19/2022 8:04 AM, LOCATION [facility] INDICATION: Code Stroke ADDITIONAL CLINICAL INFORMATION: [...] issues ??-NPO until passes swallow. TF - FIXED CAPITAL CLERK swallow evaluation Renal/Electrolytes ? No acute issues [...] Other (Comment) (has not been assessed by FIXED CAPITAL CLERK) Pain affectingintake: No Estimated Needs: KCAL: [id number] (25-30kcal/kg of IBW) Protein (g): 66-77 (1.2-1.4gm/kg [...] MD - 10/26/2022 8:16 AM CDT [facility] Infectious Diseases Progress Note Date of [...] fever serology -Chlamydia serologies, IgG and IgM, [facility]#[id number] -Mycoplasma serologies, IgG and IgM, [facility]#[id number] Follow blood cultures Follow rheumatologic and hypercoagulable work up Check CBC with auto diff and CMP weekly while on IV antibiotics Thank you for allowing us to participate in the care of this patient. We will continue to follow and monitor with you closely. Arturo Delacruz MD PhD Retail Sales Manager [facility] Infectious Disease Pager: [phone] 40 minutes spent in the care of [...] following - maintain normothermic and euglycemic - PT/OT/FIXED CAPITAL CLERK when stable - outpt follow-up for 3mm [...] Component Value Units Date/Time CARDIOLIPIN ANTIBODY IGA [[id number]] Collected: 10/23/222028 Order Status: Completed Specimen: Blood Updated: 10/26/22 1011 Cardiolipin Antibody IgA <10 APL Comment: INTERPRETIVE INFORMATION: Cardiolipin Antibodies, IgA <=11 APL: Negative 12-19 APL: Indeterminate 20-80 APL: Low to Moderately Positive 81 APL or above: High Positive Performed By: [facility] [address] [place] [address] [employer] Supervisor: Boo Bond MD, PhD CLIA Number: [id number] VANCOMYCIN LEVEL TROUGH [[id number]] (Normal) Collected: 10/26/22837 Order Status: Completed Specimen: Blood Updated: 10/26/22958 Vancomycin Trough 14.0 ug/mL Narrative: See institution protocol. LAB MISC TEST [[id number]] Collected: 10/26/2237 Order Status: Sent Specimen: Blood Updated: 10/26/2239 PTT [facility] [[id number]] Order Status: Sent Specimen: Blood PTT [facility] [[id number]] (Abnormal) Collected: 10/26/22 0647 Order Status: Completed Specimen: Blood Updated: 10/26/22716 APTT 44.3 Seconds Comment: Suggested therapeutic range for full dose I.V. unfractionated heparin therapy for venous thromboembolism is 71 to 109 seconds. GLUCOSE - POINT OF CARE [[id number]] (Abnormal) Collected: 10/26/2212 Order Status: Completed Specimen: Blood Updated: 10/26/22712 Glucose WB/POC 144 mg/dL Specimen Type Cap Fingerstick LAB MISC TEST [[id number]] Order Status: Canceled Specimen: Blood PT-INR [facility] [[id number]] (Normal) Collected: 10/26/22 0426 Order Status: Completed Specimen: Blood Updated: 10/26/22458 PT 13.6 Seconds INR 1.0 Comment: The suggested therapeutic range for standard coumadin (warfarin) therapy is an INR of 2.0-3.0. For high-risk patients (Mechanical Mitral Valve Prosthesis, etc.), the suggested prophylactic therapeutic range is an INR of 2.5-3.5. BETA-2 GLYCOPROTEIN 1 ANTIBODY IGA [[id number]] Collected: 10/23/222028 Order Status: Completed Specimen: Blood Updated: 10/26/22 0243 Beta-2 Glycoprotein Antibody IgA <10 TRUDI Comment: Performed By: [facility] [address] [place] [address] [employer] Supervisor: Boo Bond MD, PhD CLIA Number: [id number] BETA-2 GLYCOPROTEIN 1 ANTIBODY IGG/IGM PANEL [[id number]] Collected: 10/23/222028 Order Status: Completed Specimen: Blood Updated: 10/26/22 0243 Beta-2 Glycoprotein Antibody IgG <10 [facility] Beta-2 Glycoprotein Antibody IgM <10 [facility] Comment: INTERPRETIVE INFORMATION: [id number] I, IgG and IgM Antibody The persistent [...] other criteria phospholipid antibody tests. Performed By: [facility] [address] [place] [address] [employer] Supervisor: Boo Bond MD, PhD CLIA Number: [id number] CARDIOLIPIN ANTIBODY IGM [[id number]] Collected: 10/23/222028 Order Status: Completed Specimen: Blood [...] other criteria phospholipid antibody tests. Performed By: [facility] [address] [place] [address] [employer] Supervisor: Boo Bond MD, PhD CLIA Number: [id number] CARDIOLIPIN ANTIBODY IGG [[id number]] Collected: 10/23/222028 Order Status: Completed Specimen: Blood [...] other criteria phospholipid antibody tests. Performed By: [facility] [address] [place], [place] [id number] [employer] Supervisor: Boo Bond MD, PhD CLIA Number: [id number] PTT [facility] [[id number]] (Abnormal) Collected: 10/26/22 0155 Order Status: Completed Specimen: Blood Updated: 10/26/22225 APTT 20.5 Seconds Comment: Suggested therapeutic range for full dose I.V. unfractionated heparin therapy for venous thromboembolism is 71 to 109 seconds. PHOSPHORUS BLOOD [[id number]] (Normal) Collected: 10/26/221 Order Status: Completed Specimen: Blood Updated: 10/26/2229 Phosphorus 3.5 mg/dL MAGNESIUM BLOOD [[id number]] (Normal) Collected: 10/26/221 Order Status: Completed Specimen: Blood Updated: 10/26/2229 Magnesium 1.9 mg/dL BASIC METABOLIC PANEL (CALCIUM TOTAL) [[id number]] (Abnormal) Collected: 10/26/221 Order Status: Completed Specimen: Blood Updated: 10/26/2229 BUN 13 mg/dL Creatinine 0.54 mg/dL Sodium 139 mmol/L Potassium 3.3 mmol/L Chloride 105 mmol/L CO2 24 mmol/L Glucose 113 mg/dL Calcium 8.4 mg/dL Anion Gap 13 BUN/Creatinine Ratio 24 Osmolality Calculated 289 mOsm/kg eGFR by CKD-EPI >90 mL/min/1.73 m2 CBC W AUTO DIFFERENTIAL [[id number]] (Abnormal) Collected: 10/26/221 Order Status: Completed Specimen: [...] Absolute 0.30 GLUCOSE - POINT OF CARE [[id number]] Collected: 10/25/222313 Order Status: Completed Specimen: Blood Updated: 10/25/222314 Glucose WB/POC 114 mg/dL Specimen Type Cap Fingerstick PTT SLH [[id number]] Order Status: Canceled Specimen: Blood PTT SLH [[id number]] (Normal) Collected: 10/25/222101 Order Status: Completed Specimen: Blood Updated: 10/25/222131 APTT 33.3 Seconds Comment: Suggested therapeutic range for full dose I.V. unfractionated heparin therapy for venous thromboembolism is 71 to 109 seconds. GLUCOSE - POINT OF CARE [[id number]] (Abnormal) Collected: 10/25/221853 Order Status: Completed Specimen: Blood Updated: 10/25/221855 Glucose WB/POC 122 mg/dL Specimen Type Cap Fingerstick PT-INR SLH [[id number]] (Normal) Collected: 10/25/221640 Order Status: Completed Specimen: Blood Updated: 10/25/221718 PT 13.4 Seconds INR 1.0 Comment: The suggested therapeutic range for standard coumadin (warfarin) therapy is an INR of 2.0-3.0. For high-risk patients (Mechanical Mitral Valve Prosthesis, etc.), the suggested prophylactic therapeutic range is an INR of 2.5-3.5. PTT SLH [[id number]] (Normal) Collected: 10/25/221640 Order Status: Completed Specimen: [...] abdomen or pelvis Findings discussed with Dr. Abeer by Dr. Clarisa Cantrell at 10/25/2022 3:03 PM with read back comprehension and verification. > Dictated by Clarisa Cantrell MD (residential installer). [employer] have personally reviewed and interpreted this [...] is dictated by Miranda Bowen MD (residential installer) Joni Ornelas MD have personally reviewed and [...] right lateral ventricle, and approximately 3-4 mm ukqpx-iu-aqmm midline shift, grossly similar to the prior. [...] Report dictated by Tim Major MD (residential installer). Jasper Ornelas MD have personally reviewed and [...] report is dictated by Miranda Bowen MD(residential installer) Jasper Ornelas MD have personally reviewed and [...] hemorrhage. Report dictated by Lorenzo Horta MD (vice president sales). Lonnie Ornelas MD have personally reviewed [...] prior. > Dictated by Bassam Jovel M.D. (vice president sales) Gonzalez Ornelas MD have personally reviewed [...] febrile Gastrointestinal # Hx of GERD? - FIXED CAPITAL CLERK swallow evaluation:??when stable - Diet:??NG tube - [...] bedside Consuelo Brown Medical Student, MS3 [facility]. * Paris Mohr MD - 10/26/2022 [...] TICI 2B recanalization S/P TNK administration. S/P [facility] Malignant MCA syndrome - S/P hemicrani [...] after hemicrani on 10/20. Extubated 10/24, to HI - Bronchial hygiene q4h, vest and if [...] - Diet: Goal TF Vital 55cc/hr, FWF [id number] - GI ppx: Lansoprozole - Last BM: [...] Paris Mohr MD Neurology Resident. PGY-3 [facility]. Associated attestation - Shahbaz Bowen MD [...] 10/25: Incidentally clot found in the R BROADCAST PROGRAM DIRECTOR, non-occulsive, with good pulses peripherally. 10/26: no [...] Contact Information Primary Emergency Contact: MehnazHi Address: [address] [place] [address] [place] [address] [facility] Relation: Spouse Secondary Emergency Contact: Sandra Disla [facility] Mobile Relation: Mother Transportation at Discharge: Ambulance: READMISSION RISK SCORE is 15 at 6:02 PM 10/25/2022.: Name: Bulmaro Ochoa RN BSN pmo manager [phone] * Barbara Arteaga - 10/25/2022 12:38 PM CDT offered support to Salo at bedside and asked him and Consuelo, who was awake, aboutreceiving the sacrament of the sick from a wood repatcher. Salo said yes and Consuelo seemed to give assent as well. Diesel Locomotive Crane Operator asked if she would like prayer and Consuelo gave a thumbs up; hog scraper provided prayer in thanksgiving that she's extubated and giving thumbs up. Consuelo put her arm around Salo who w as leaning over her; hog scraper affirmed the couple's obvious love for each other. requestedSOS from our wood repatcher. chaplain Cici Ascom [phone] market investigator [id number] * Paris Mohr MD - 10/25/2022 [...] - Diet: Goal TF Vital 55cc/hr, FWF [id number] - GI ppx: Lansoprozole - Last BM: [...] Paris Mohr MD Neurology Resident. PGY-3 [facility]. Associated attestation - Shahbaz Bowen MD [...] 10/25: Incidentally clot found in the R BROADCAST PROGRAM DIRECTOR, non-occulsive, with good pulses peripherally. RENAL/ Urinary [...] Rose OT - 10/25/2022 9:50 AM CDT [facility] Department of Physical Medicine & Rehabilitation Progress Note Patient: Consuelo Darby Med Record Number: [id number] Date of : 1980 Age: [age] year old 10/25/22 0949 Missed Visit Missed Visit MD Cancel Per multidisciplinary rounds with primary team, cx therapy this date. Team also notified on rounds of need for helmet prior to initiating out of bed mobility. OT will continue to follow. * Iva Wilde, PT - 10/25/2022 9:30 AM CDT [facility] Department of Physical Medicine & Rehabilitation Patient: Consuelo Darby Med Record Number: [id number] Date of : 1980 Age: [age] year old 10/25/22 0930 Missed Visit Missed Visit Cancel- Cancel for the day per stroke rounds * Liam Parks MD - 10/25/2022 8:00 AM CDT [facility] Infectious Diseases Progress Note Date of Admission: 10/19/2022 7:53 AM Length of Stay: Day 6 Room: [facility]/ Attending: Emir Vail MD Subjective Since [...] 10/25 - present ?? Prior Antibiotics At [facility] Cefazolin 10/20 Vancomycin 10/20 Inpatient Medications ??? [...] Recent Labs Component Name 10/25/22 0007 10/23/22202810/23/229 10/20/22 03010/19/2282306/15/22 075 NA 140 140 140 - 139 138 CL 106 110* 108* - 108* 107 CO2 25 23 25 - * 23 BUN 16 14 13 - 13 [...] Liam Parks MD (PGY-5) Infectious Diseases Fellow [facility] Pager: [phone] [facility] Associated attestation - Arturo Delacruz [...] of care. . Arturo Delacruz MD PhD Retail Sales Manager [facility] Infectious Disease * Consuelo Prado Kyle - 10/25/2022 7:51 AM CDT Images from [...] Units Date/Time GLUCOSE - POINT OF CARE [[id number]] (Abnormal) Collected: 10/25/22745 Order Status: Completed Specimen: Blood Updated: 10/25/22746 Glucose WB/POC 123 mg/dL Specimen Type Cap Fingerstick HEPATITIS C AB SCREEN RFLX NAAT QUANT [[id number]] (Normal) Collected: 10/25/22138 Order Status: Completed Specimen: [...] HIV-2 ANTIBODY + HIV P24 AG PANEL [[id number]] (Normal) Collected: 10/25/22138 Order Status: Completed Specimen: Blood Updated: 10/25/22255 HIV Antigen/Antibody 1 & 2 Non-reactive Comment: No Laboratory evidence of HIV infection. MAGNESIUM BLOOD [[id number]] (Normal) Collected: 10/25/226 Order Status: Completed Specimen: Blood Updated: 10/25/2247 Magnesium 2.1 mg/dL PHOSPHORUS BLOOD [[id number]] (Normal) Collected: 10/25/226 Order Status: Completed Specimen: Blood Updated: 10/25/2247 Phosphorus 3.7 mg/dL BASIC METABOLIC PANEL (CALCIUM TOTAL) [[id number]] (Abnormal) Collected: 10/25/226 Order Status: Completed Specimen: Blood Updated: 10/25/22 0048 BUN 16 mg/dL Creatinine 0.48 mg/dL Sodium 140 mmol/L Potassium 4.0 mmol/L Chloride 106 mmol/L CO2 25 mmol/L Glucose 116 mg/dL Calcium 9.0 mg/dL Anion Gap 13 BUN/Creatinine Ratio 33 Osmolality Calculated 292 mOsm/kg eGFR by CKD-EPI >90 mL/min/1.73 m2 CBC W AUTO DIFFERENTIAL [[id number]] (Abnormal) Collected: 10/25/22 0007 Order Status: Completed [...] Absolute 0.18 GLUCOSE - POINT OF CARE [[id number]] Collected: 10/24/222015 Order Status: Completed Specimen: Blood Updated: 10/24/222024 Glucose WB/POC 111 mg/dL Specimen Type Cap Fingerstick GLUCOSE - POINT OF CARE [[id number]] (Abnormal) Collected: 10/24/22 1237 Order Status: Completed Specimen: Blood Updated: 10/24/22 1734 Glucose WB/POC 130 mg/dL Specimen Type Cap Fingerstick GLUCOSE - POINT OF CARE [[id number]] Collected: 10/24/221709 Order Status: Completed Specimen: Blood Updated: 10/24/22 171 Glucose WB/POC 112 mg/dL Specimen Type Cap Fingerstick LUPUS ANTICOAGULANT PANEL [[id number]] (Abnormal) Collected: 10/23/222028 Order Status: Completed Specimen: [...] of APAS. GLUCOSE - POINT OF CARE [[id number]] (Abnormal) Collected: 10/24/22914 Order Status: Completed Specimen: Blood Updated: 10/24/22 [...] right lateral ventricle, and approximately 3-4 mm xwdaa-dl-etvl midline shift, grossly similar to the prior. [...] Report dictated by Tim Major MD (residential installer). Jasper Ornelas MD have personally reviewed and [...] report is dictated by Miranda Bowen MD(residential installer) Jasper Ornelas MD have personally reviewed and [...] hemorrhage. Report dictated by Lorenzo Horta MD (vice president sales). Lonnie Ornelas MD have personally reviewed [...] mm, unchanged from prior. > Dictated by Janeen MccollumD. (vice president sales) IGonzalez MD have personally reviewed and [...] Gastrointestinal # Hx of GERD ?? - FIXED CAPITAL CLERK swallow evaluation: when stable - Diet: NG [...] bedside Consuelo Brown Medical Student, MS3 [facility]. Associated attestation - Shahbaz Bowen MD [...] 105 23 128/75 Recent Labs Component Name 08/16/610/23/22202810/23/22 0129 NA 140 140 140 CL 106 110* 108* CO2 25 23 25 BUN 16 14 13 CREATININE 0.48* 0.56 0.51* CALCIUM 9.0 8.5 8.3* PHOS 3.7 3.1 3.4 Recent Labs Component Name 10/25/22 00010/23/22202810/23/2212810/22/22 0153 [...] AM CDT Stroke Service Daily Progress Note Conseulo Darby Age: [age] year old Date of [...] ?? Interval History: NAEON. Extubated yesterday to HI. Dentist evaluated, no concern for dental issues. [...] results for input(s): MG in the last 22432 hours. Recent Labs Component Name 10/25/22610/23/22202810/23/22128 PHOS 3.7 3.1 3.4 Recent Labs Component Name 10/23/22202810/20/22 0302 10/19/22 0824 PT 13.4 13.6 12.3 INR 1.0 1.1 0.9 PTT 21.4* 24.4 - No results for input(s): A1C in the last 38441 hours. Recent Labs Component Name 10/20/2230106/15/22 0757 CHOL 173 204* HDL 42 37* LDLCALC 91 117* TRIG 201* 251* Recent Labs Component Name 06/15/22 0757 TSH 1.873 No results for input(s): CKMB, CKTOTAL, CKMB, TROPONINI, BNP in the last [address] ANGIO BRAIN NECK STROKE Result Date: 10/19/2022 PROCEDURE: CT ANGIO BRAIN NECK STROKE, DATE/TIME OF EXAM: 10/19/2022 8:16 AM, LOCATION [facility] INDICATION: Code Stroke ADDITIONAL CLINICAL INFORMATION: [...] DATE/TIME OF EXAM: 10/19/2022 8:04 AM, LOCATION [facility] INDICATION: Code Stroke ADDITIONAL CLINICAL INFORMATION: [...] issues ??-NPO until passes swallow. TF - FIXED CAPITAL CLERK swallow evaluation Renal/Electrolytes ? No acute issues [...] still appropriate in some patient populations. REF: https://www.[facility].org/practice-guideline/vancomycin/ ASSESSMENT/PLAN Indication: suspected Sepsis with Goal Level: [...] Sajan Del Rosario, PharmD 10/25/2022 6:26 AM [facility] Vancomycin Guideline SUBJECTIVE/OBJECTIVE Consuelo Darby is [...] Given - Contrast 10/23/2022 Vancomycin Administrations from MAR (last 72 hours) Date/Time Action Medication Dose Rate 10/25/22 0200 $ New Bag/Syringe vancomycin (Vancocin) 2,250 mg in 545 mL IVPB 2,250 mg 242.22 mL/hr No results for input(s): VANCORNDM, VANCTROUGH, VANCOTROUGH, VANCOPEAK in the last 37103 hours. * Jorge Dodd - 10/25/2022 12:30 [...] center Barbara estes, for followup and contacting once [...] noted to Amy Gilmore hemainopsia, mild dysarthria, and extinction. NIHSS: 7. [...] results for input(s): MG in the last 25000 hours. Recent Labs Component Name 10/23/22202810/23/22 0129 10/21/22 2316 PHOS 3.1 3.4 2.7* Recent Labs Component Name 10/23/22202810/20/22 0302 10/19/22 0824 PT 13.4 13.6 12.3 INR 1.0 1.1 0.9 PTT 21.4* 24.4 - No results for input(s): A1C in the last 85560 hours. Recent Labs Component Name 10/20/22 0302 06/15/22 0757 CHOL 173 204* HDL 42 37* LDLCALC 91 117* TRIG 201* 251* Recent Labs Component Name 06/15/22 0757 TSH 1.873 No results for input(s): CKMB, CKTOTAL, CKMB, TROPONINI, BNP in the last [address] ANGIO BRAIN NECK STROKE Result Date: 10/19/2022 PROCEDURE: CT ANGIO BRAIN NECK STROKE, DATE/TIME OF EXAM: 10/19/2022 8:16 AM, LOCATION [facility] INDICATION: Code Stroke ADDITIONAL CLINICAL INFORMATION: [...] DATE/TIME OF EXAM: 10/19/2022 8:04 AM, LOCATION [facility] INDICATION: Code Stroke ADDITIONAL CLINICAL INFORMATION: [...] Gastrointestinal ? No acute issues ?? - FIXED CAPITAL CLERK swallow evaluation Renal/Electrolytes ? No acute issues [...] following - maintain normothermic and euglycemic - PT/OT/FIXED CAPITAL CLERK when stable Temp: [98.5 ??F (36.9 ??C)-100.2 [...] - Diet: Goal TF Vital 55cc/hr, FWF 513udz3d - GI ppx: Lansoprozole - Last BM: [...] Paris Mohr MD Neurology Resident. PGY-3 [facility]. Associated attestation - Shahbaz Bowen MD [...] takes deep breath when asked. Extubated to HI [facility] Aortic vegetation 10/23: Vegetation discovered differential [...] Date/Time BETA-2 GLYCOPROTEIN 1 ANTIBODY IGG/IGM PANEL [[id number]] Collected: 10/23/222028 Order Status: Sent Specimen: Blood Updated: 10/23/222118 CARDIOLIPIN ANTIBODY IGA [[id number]] Collected: 10/23/222028 Order Status: Sent Specimen: Blood Updated: 10/23/222118 CARDIOLIPIN ANTIBODY IGG [[id number]] Collected: 10/23/222028 Order Status: Sent Specimen: Blood Updated: 10/23/222118 BETA-2 GLYCOPROTEIN 1 ANTIBODY IGA [[id number]] Collected: 10/23/222028 Order Status: Sent Specimen: Blood Updated: 10/23/222118 CARDIOLIPIN ANTIBODY IGM [[id number]] Collected: 10/23/222028 Order Status: Sent Specimen: Blood Updated: 10/23/222118 PHOSPHORUS BLOOD [[id number]] (Normal) Collected: 10/23/222028 Order Status: Completed Specimen: Blood Updated: 10/23/222113 Phosphorus 3.1 mg/dL MAGNESIUM BLOOD [[id number]] (Normal) Collected: 10/23/222028 Order Status: Completed Specimen: Blood Updated: 10/23/222113 Magnesium 2.1 mg/dL BASIC METABOLIC PANEL (CALCIUM TOTAL) [[id number]] (Abnormal) Collected: 10/23/222028 Order Status: Completed Specimen: Blood Updated: 10/23/222113 BUN 14 mg/dL Creatinine 0.56 mg/dL Sodium 140 mmol/L Potassium 4.1 mmol/L Chloride 110 mmol/L CO2 23 mmol/L Glucose 119 mg/dL Calcium 8.5 mg/dL Anion Gap 11 BUN/Creatinine Ratio 25 Osmolality Calculated 292 mOsm/kg eGFR by CKD-EPI >90 mL/min/1.73 m2 CBC W AUTO DIFFERENTIAL [[id number]] (Abnormal) Collected: 10/23/222028 Order Status: Completed Specimen: [...] Immature Granulocytes Absolute 0.15 LAB MISC TEST [[id number]] Collected: 10/23/222028 Order Status: Sent Specimen: Blood Updated: 10/23/222053 LUPUS ANTICOAGULANT PANEL [[id number]] Collected: 10/23/222028 Order Status: Sent Specimen: Blood Updated: 10/23/222042 GLUCOSE - POINT OF CARE [[id number]] Collected: 10/23/221756 Order Status: Completed Specimen: Blood Updated: 10/23/221757 Glucose WB/POC 105 mg/dL Specimen Type Cap Fingerstick ERYTHROCYTE SEDIMENTATION RATE [[id number]] (Abnormal) Collected: 10/23/22 154 Order Status: Completed Specimen: Blood Updated: 10/23/22 1625 Erythrocyte Sedimentation Rate Westergren 55 MM/HR C-REACTIVE PROTEIN [[id number]] (Abnormal) Collected: 10/23/22 1547 Order Status: Completed Specimen: Blood Updated: 10/23/22 1619 C-Reactive Protein 12.1 mg/dL GLUCOSE - POINT OF CARE [[id number]] Collected: 10/23/22 1124 Order Status: Completed Specimen: [...] report is dictated by Miranda Bowen MD(residential installer) IJasper MD have personally reviewed and interpreted [...] hemorrhage. Report dictated by Lorenzo Horta MD (vice president sales). Lonnie Ornelas MD have personally reviewed [...] prior. > Dictated by Bassam Jovel M.D. (vice president sales) Gonzalez Ornelas MD have personally reviewed [...] febrile Gastrointestinal # Hx of GERD - FIXED CAPITAL CLERK swallow evaluation: when stable - Diet: NG [...] Cordero Kyle Prado Medical Student, MS3 [facility]. Associated attestation - Shahbaz Bowen MD [...] Ms. Consuelo Darby in consultation at [facility] on 10/23/2022 for evaluation of vegetation [...] - - BMP: Recent Labs Component Name 10/23/22202810/23/2212810/21/22 231 NA 140 140 142 CL 110* 108* 111* CO2 23 25 20* BUN 14 13 16 CREATININE 0.56 0.51* 0.65 CALCIUM 8.5 8.3* 8.0* No results for input(s): MG in the last 87388 hours. Recent Labs Component Name 10/23/22202810/23/2212810/21/22 231 [...] input(s): CKTOTAL, CKMB, TROPONINI in the last 09800 hours. Invalid input(s): CKMBINDEX Lipid Panel: Recent [...] right lateral ventricle, and approximately 3-4 mm sxpqu-cj-lxqq midline shift, grossly similar to the prior. [...] - - Recent Labs Component Name 10/23/22 0129 10/21/22 2316 10/21/22 0459 NA 140 142 142 CL 108* 111* 115* CO2 25 20* 16* BUN 13 16 12 CREATININE 0.51* 0.65 0.64 CALCIUM 8.3* 8.0* 8.2* No results for input(s): MG in the last 98661 hours. Recent Labs Component Name 10/23/22 0129 10/21/22 2316 10/21/22 0459 PHOS 3.4 2.7* 2.2* Recent Labs Component Name 10/20/22 0302 10/19/22 0824 10/19/22 0809 PT 13.6 12.3 - INR 1.1 0.9 0.9 PTT 24.4 - - No results for input(s): A1C in the last 93424 hours. Recent Labs Component Name 10/20/22 0302 06/15/22 0757 CHOL 173 204* HDL 42 37* LDLCALC 91 117* TRIG 201* 251* Recent Labs Component Name 06/15/22 0757 TSH 1.873 No results for input(s): CKMB, CKTOTAL, CKMB, TROPONINI, BNP in the last [address] ANGIO BRAIN NECK STROKE Result Date: 10/19/2022 PROCEDURE: CT ANGIO BRAIN NECK STROKE, DATE/TIME OF EXAM: 10/19/2022 8:16 AM, LOCATION [facility] INDICATION: Code Stroke ADDITIONAL CLINICAL INFORMATION: [...] DATE/TIME OF EXAM: 10/19/2022 8:04 AM, LOCATION [facility] INDICATION: Code Stroke ADDITIONAL CLINICAL INFORMATION: [...] pending PT/OT Evaluation: pending Smoking cessation; will tariff counsel: N/A Migraine - verapamil 40 TID [...] Gastrointestinal ? No acute issues ?? - FIXED CAPITAL CLERK swallow evaluation Renal/Electrolytes ? No acute issues [...] start heparin drip pending NSGY clearance given [facility]. Blood cultures ordered UDS negative on admission Rheumatology consulted given family history of [facility] ICU for at least 48 hours. Orientation Level: Unable to Obtain: Family Support (Name and Phone): Extended Emergency Contact Information Primary Emergency Contact: Hi Darby Address: [address] [place] [phone] [facility] Relation: Spouse Secondary Emergency Contact: Sandra Disla [facility] Mobile Relation: Mother Transportation at Discharge: Ambulance: READMISSION RISK SCORE is 16 at 2:17 PM 10/23/2022.: Name:Bulmaro Ochoa RN BSN pmo manager [phone] * Laura Patel APRN-BALANCE SCREWHEAD POLISHER - 10/23/2022 2:10 PM CDT Neurosurgery Plan [...] acute decline in neuro exam. Laura Patel, AMANDA-BALANCE SCREWHEAD POLISHER * Sosa Degroot MD - 10/23/2022 2:01 [...] following - maintain normothermic and euglycemic - PT/OT/FIXED CAPITAL CLERK when stable Temp: [98.2 ??F (36.8 ??C)-99.5 [...] post acute care needs Patient is an [facility] employee; [facility] for all post acute care needs Payer/Plan Subscriber Name Rel Member # Group # [employer] [facility] [employer]* CONSUELO DARBY [id number] [address] [id number] Anticipated level of care at discharge: Home, Acute Rehab Facility: Anticipated level of care provider: None: Anticipated Discharge Date: 10/26/22: Orientation Level: Unable to Obtain: Family Support (Name and Phone): Extended Emergency Contact Information Primary Emergency Contact: Hi Darby Address: [address] [place] [address] [place] [address] [facility] Relation: Spouse Secondary Emergency Contact: Sandra Disla [facility] Mobile Relation: Mother Transportation at Discharge: [...] discussed with Dr. Andrés MD. Bob Weaver [facility] * Paris Mohr MD - 10/23/2022 6:46 [...] start heparin drip pending NSGY clearance given [facility]. - Blood cultures ordered - UDS [...] - Diet: Goal TF Vital 55cc/hr, FWF 775rsd1k - GI ppx: Lansoprozole - Last BM: [...] Paris Mohr MD Neurology Resident. PGY-3 [facility]. * Jing Powers, [facility] - 10/22/2022 2:20 PM CDT Transport Start [...] bedside Eli Alcaraz MD Neurology Resident. [facility]. Associated attestation - Dary Garvey MD [...] Yared Chavira - 10/22/2022 11:02 AM CDT Diesel Locomotive Crane Operator provided pastoral care and support to family at patient's bedside - patient's and older sister. With permission, Diesel Locomotive Crane Operator provided compassionate touch and prayed for patient [...] hemicraniectomy and ICPm insertion 10/[address] Mraquez. Following the operation, she was transferred intubated [...] and developed with the assembled team. Consuelo Dabry is a 41 year old 41 year old??with GERD, tobacco, presented on 10/19 with Right MCA syndrome s/p TNK. CTA 1 M1 occlusion. S/P mechanical thrombectomy with R M1 recanalization and TICI2b. CT 10/20/22 with edema and mildshift. On exam, lid apraxia and following briskly on right; slight LLE movement. Hx of OCP use. S/P decompressive right hemicraniectomy. Mechanism of infarct is ESUS. [...] 18 115/69 10/21/222028 -- 84 -- 126/66 10/21/221999 99.1 ??F (37.3 ??C) 96 22 128/72 [...] 103 17 153/75 Recent Labs Component Name 10/21/22231510/21/22 0459 10/20/22 030 NA 142 142 138 CL [...] 123/70 -- -- 97 19 96 % 08 0900 144/74 -- -- 97 18 96 [...] - Recent Labs Component Name 10/21/22 2316 10/21/22 0459 10/20/22 0302 NA 142 142 138 CL 111* 115* 108* CO2 20* 16* 21* BUN 16 12 6* CREATININE 0.65 0.64 0.50* CALCIUM 8.0* 8.2* 8.2* No results for input(s): MG in the last 08785 hours. Recent Labs Component Name 10/21/22 2316 10/21/22 0459 PHOS 2.7* 2.2* Recent Labs Component Name 10/20/22 0302 10/19/22 0824 10/19/22 0809 PT 13.6 12.3 - INR 1.1 0.9 0.9 PTT 24.4 - - No results for input(s): A1C in the last 47715 hours. Recent Labs Component Name 10/20/22 0302 06/15/22 0757 CHOL 173 204* HDL 42 37* LDLCALC 91 117* TRIG 201* 251* Recent Labs Component Name 06/15/22 0757 TSH 1.873 No results for input(s): CKMB, CKTOTAL, CKMB, TROPONINI, BNP in the last [address] ANGIO BRAIN NECK STROKE Result Date: 10/19/2022 PROCEDURE: CT ANGIO BRAIN NECK STROKE, DATE/TIME OF EXAM: 10/19/2022 8:16 AM, LOCATION [facility] INDICATION: Code Stroke ADDITIONAL CLINICAL INFORMATION: [...] DATE/TIME OF EXAM: 10/19/2022 8:04 AM, LOCATION [facility] INDICATION: Code Stroke ADDITIONAL CLINICAL INFORMATION: [...] pending PT/OT Evaluation: pending Smoking cessation; will tariff counsel: N/A ?? Neurological ?? R M1 [...] pending PT/OT Evaluation: pending Smoking cessation; will tariff counsel: N/A Migraine - verapamil 40 TID [...] Gastrointestinal ? No acute issues ?? - FIXED CAPITAL CLERK swallow evaluation Renal/Electrolytes ? No acute issues [...] cont straight cath. Prefer NO puentes insertion PT/OT/FIXED CAPITAL CLERK Dary Garvey MD Neurologic Critical Care Attending 10/21/2022 * Shania Arce SLP - 10/21/2022 12:27 PM CDT [facility] Department of Physical Medicine & Rehabilitation Progress Note Patient: Consuelo Darby Med Record Number: [id number] Date of : 1980 Age: [age] year old 10/21/22 1200 Therapy on Hold Therapy on Hold Surgery;New Order Required for Therapy Barb Lopes MS [facility]-FIXED CAPITAL CLERK Speech Language Pathologist * Stephanie Hester MD [...] results for input(s): MG in the last 21353 hours. Recent Labs Component Name 10/21/22458 PHOS 2.2* Recent Labs Component Name 10/20/22 0302 10/19/22 0824 10/19/22 0809 PT 13.6 12.3 - INR 1.1 0.9 0.9 PTT 24.4 - - No results for input(s): A1C in the last 98141 hours. Recent Labs Component Name 10/20/22 03006/15/22 075 CHOL 173 204* HDL 42 37* LDLCALC 91 117* TRIG 201* 251* Recent Labs Component Name 06/15/22 075 TSH 1.873 No results for input(s): CKMB, CKTOTAL, CKMB, TROPONINI, BNP in the last [address] ANGIO BRAIN NECK STROKE Result Date: 10/19/2022 PROCEDURE: CT ANGIO BRAIN NECK STROKE, DATE/TIME OF EXAM: 10/19/2022 8:16 AM, LOCATION [facility] INDICATION: Code Stroke ADDITIONAL CLINICAL INFORMATION: [...] DATE/TIME OF EXAM: 10/19/2022 8:04 AM, LOCATION [facility] INDICATION: Code Stroke ADDITIONAL CLINICAL INFORMATION: [...] pending PT/OT Evaluation: pending Smoking cessation; will tariff counsel: N/A ?? Neurological ?? R M1 [...] pending PT/OT Evaluation: pending Smoking cessation; will tariff counsel: N/A Migraine - verapamil 40 TID [...] Gastrointestinal ? No acute issues ?? - FIXED CAPITAL CLERK swallow evaluation Renal/Electrolytes ? No acute issues [...] Russell PT - 10/21/2022 8:23 AM CDT [facility] Department of Physical Medicine & Rehabilitation Progress Note Patient: Consuelo Darby Med Record Number: [id number] Date of : 1980 Age: [age] year [...] euglycemic - pending SARAH w/ ILR - PT/OT/FIXED CAPITAL CLERK when stable Temp: [99 ??F (37.2 ??C)-100.4 [...] Rose OT - 10/21/2022 7:37 AM CDT [facility] Department of Physical Medicine & Rehabilitation Progress Note Patient: Consuelo Darby Med Record Number: [id number] Date of : 1980 Age: [age] year [...] Value Units Date/Time CBC W AUTO DIFFERENTIAL [[id number]] Order Status: Sent Specimen: Blood BLOOD GASES ART + COOX PANEL [[id number]] Order Status: Sent Specimen: Blood, arterial from Arterial Blood COMPLEMENT C3 [[id number]] (Normal) Collected: 10/21/22 0459 Order Status: Completed Specimen: Blood Updated: 10/21/22546 Complement C3 155 mg/dL MAGNESIUM BLOOD [[id number]] (Normal) Collected: 10/21/22458 Order Status: Completed Specimen: Blood Updated: 10/21/22546 Magnesium 2.2 mg/dL Comment: Hemolysis detected in this specimen. Hemolysis is known to cause elevations in this analyte. Caution should be exercised in the interpretation of this result. Recommend repeat testing if clinically indicated. BASIC METABOLIC PANEL (CALCIUM TOTAL) [[id number]] (Abnormal) Collected: 10/21/22458 Order Status: Completed Specimen: [...] by CKD-EPI >90 mL/min/1.73 m2 PHOSPHORUS BLOOD [[id number]] (Abnormal) Collected: 10/21/22458 Order Status: Completed Specimen: Blood Updated: 10/21/22545 Phosphorus 2.2 mg/dL TROPONIN-I HIGH SENSITIVE BASELINE + 1HR [[id number]] (Normal) Collected: 10/21/22458 Order Status: Completed Specimen: Blood Updated: 10/21/22545 Troponin I High Sensitive <3 ng/L RHEUMATOID FACTOR BLOOD QUANTITATIVE [[id number]] (Normal) Collected: 10/21/22458 Order Status: Completed Specimen: Blood Updated: 10/21/22535 Rheumatoid Factor <15 IU/mL Rheumatoid Factor Screen Negative CBC W/O DIFFERENTIAL [[id number]] (Abnormal) Collected: 10/21/22458 Order Status: Completed Specimen: Blood Updated: 10/21/22524 WBC 18.7 10??3/uL RBC 2.98 10??6/uL Hemoglobin 9.4 g/dL Hematocrit 27.8 % MCV 93.3 fL MCH 31.5 pg MCHC 33.8 g/dL RDW-SD 48.8 fL RDW-CV 14.3 % Platelet Count 260 10??3/uL MPV 10.6 fL nRBC Absolute 0.00 10??3/uL nRBC Auto 0.0 /100 WBC FACTOR V LEIDEN MUTATION PANEL [[id number]] Collected: 10/21/22458 Order Status: Sent Specimen: Blood Updated: 10/21/22 0510 TROPONIN-I HIGH SENSITIVE REFLEX 1HOUR [[id number]] Order Status: Sent Specimen: Blood SARAH BLOOD SCREEN W/REFLEX TITER [[id number]] Collected: 10/21/22458 Order Status: Sent Specimen: Blood Updated: 10/21/22 0506 GLUCOSE - POINT OF CARE [[id number]] (Abnormal) Collected: 10/21/22457 Order Status: Completed Specimen: Blood Updated: 10/21/22 0502 Glucose WB/POC 166 mg/dL Specimen Type Cap Fingerstick GLUCOSE - POINT OF CARE [[id number]] (Abnormal) Collected: 10/21/22120 Order Status: Completed Specimen: Blood Updated: 10/21/22124 Glucose WB/POC 164 mg/dL Specimen Type Cap Fingerstick BLOOD GASES ART + COOX PANEL [[id number]] (Abnormal) Collected: 10/20/22 2246 Order Status: Completed [...] >20% BLOOD GASES ART + COOX PANEL [[id number]] Order Status: Canceled Specimen: Blood, arterial from Arterial Blood BLOOD GAS ART+LYTES+METAB+COOX POC NOTIF [[id number]] Collected: 10/20/221926 Order Status: Completed Specimen: Other Updated: 10/20/22 2100 Comment Notification Label Only - See Separate Report BLOOD GAS+COOX+LYTES+METAB ARTERIAL POCT [[id number]] (Abnormal) Collected: 10/20/221935 Order Status: Completed Specimen: [...] Whole Blood 1.6 mmol/L HGB HCT PANEL [[id number]] (Normal) Collected: 10/20/22 1640 Order Status: Completed Specimen: Blood Updated: 10/20/22 1701 Hemoglobin 12.0 g/dL Hematocrit 36.6 % HEMOGLOBIN A1C [[id number]] (Abnormal) Collected: 10/20/22 1015 Order Status: Completed [...] to evaluate metabolic control in patients. Reference: [place] Diabetes Association, Standards of Care in Diabetes -2020 In patients 70 years and older consider HbA1c target range of 7.0-7.5% (Reference: Ronal David et al. JAMDA. 2012) The Sebia assay for the measurement of HbA1c is a National Glycohemoglobin Standardization Program (NGSP) certified method. GLUCOSE - POINT OF CARE [[id number]] (Abnormal) Collected: 10/20/22 1132 Order Status: Completed Specimen: Blood Updated: 10/20/22 1142 Glucose WB/POC 124 mg/dL Specimen Type Cap Fingerstick LUPUS ANTICOAGULANT PANEL [[id number]] Collected: 10/20/22 0302 Order Status: Completed Specimen: [...] of APAS. GLUCOSE - POINT OF CARE [[id number]] (Abnormal) Collected: 10/20/2244 Order Status: Completed Specimen: Blood Updated: 10/20/22 0754 Glucose WB/POC 32 mg/dL Specimen Type Cap Fingerstick GLUCOSE - POINT OF CARE [[id number]] (Abnormal) Collected: 10/20/22 0747 Order Status: Completed Specimen: Blood Updated: 10/20/22 [...] prior. > Dictated by Bassam Jovel M.D. (vice president sales) Gonzalez Ornelas MD have personally reviewed [...] if febrile Gastrointestinal No active issues - FIXED CAPITAL CLERK swallow evaluation: failed - Diet: NG - [...] Cordero Kyle Prado Medical Student, MS3 [facility]. Associated attestation - Dary Garvey MD [...] Salo after family left. Offered reflective listening. 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 Pt and Salo have two daughters, [...] Jorge Dodd - 10/20/2022 5:49 PM CDT Diesel Locomotive Crane Operator Doni found pt's father in [facility] crying. Dad shared that pt was headed to surgery emergently to remove part of her skull . Met mom and pt's spouse Salo. Offered pastoral presence and prayerfor mom and dad. Family is waiting in [facility]. Surgeon met family and knows where to follow up with them. This hog scraper will follow up. 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 Modified Maryann: Current Modified Hampden Score: 5 AM-PAC 6 Clicks Daily Activity [...] Patient will perform toileting with moderate assist Prison Goal(s): Patient to discharge to appropriate next [...] Benjamin SLP - 10/20/2022 11:50 AM CDT [facility] Physical Medicine and Rehabilitation Bedside Swallow Assessment Patient: Consuelo Darby Med Record Number: [id number] Date of : 1980 Age: [age] year [...] placement for nutritional support and medication administration. FIXED CAPITAL CLERK will continue to follow up for ongoin [...] Impression - Pharyngeal: Moderate Education/Interventions: While performing FIXED CAPITAL CLERK, Patient was instructed in: results of swallow [...] oropharyngeal swallow function to warrant diet upgrade. Prison Goal (s): Patient to be independent/baseline with functional mobility and self care and be able to safely discharge to prior level of care. Plan: Continue NPO status with plan for ongoing FIXED CAPITAL CLERK follow up. Cass Lu M.S., [facility]-FIXED CAPITAL CLERK Speech Language Pathologist [phone] * Bulmaro Ochoa [...] Information Primary Emergency Contact: Hi Darby Address: [address] [place] [address] [place] [address] [facility] Relation: Spouse Secondary Emergency Contact: Sandra Disla [facility] Mobile Relation: Mother Transportation at Discharge: Family: READMISSION RISK SCORE is 15 at 11:11 AM 10/20/2022.: Name: Bulamro Ochoa RN BSN pmo manager [phone] * Tia Morales, PT - 10/20/2022 10:37 AM CDT [facility] Physical Medicine and Rehabilitation Physical Therapy Initial Evaluation Note Patient: Consuelo Darby Med Record Number: [id number] Date of : 1980 Age: [age] year [...] Active;Driving;Other (Comment) (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[employer]) Vision: Corrected with glasses Hearing Exceptions: No [...] balance activities and monitoring of vitals Modified Hampden: Current Modified Hampden Score: 5 AM-PAC 6 Clicks Mobility Raw [...] transfer bed to/from chair with moderate assist Resolution Analyst Goal(s): Patient to discharge to appropriate next [...] Benjamin SLP - 10/20/2022 10:33 AM CDT [facility] Department of Physical Medicine & Rehabilitation Progress Note Patient: Consuelo Darby Med Record Number: [id number] Date of : 1980 Age: [age] year old 10/20/22 1033 Missed Visit Missed Visit Pt with other disciplines x2 at time of visit this morning, will plan to follow up agian today for swallow eval Cass Lu M.S., [facility]-FIXED CAPITAL CLERK Speech Language Pathologist [phone] * Jaime Drew [...] results for input(s): MG in the last 11009 hours. No results for input(s): PHOS in the last 41217 hours. Recent Labs Component Name 10/19/2282310/19/22 0809 PT 12.3 - INR 0.9 0.9 No results for input(s): A1C in the last 01346 hours. Recent Labs Component Name 10/20/2230106/15/22 075 CHOL 173 204* HDL 42 37* LDLCALC 91 117* TRIG 201* 251* Recent Labs Component Name 06/15/22 075 TSH 1.873 No results for input(s): CKMB, CKTOTAL, CKMB, TROPONINI, BNP in the last [address] ANGIO BRAIN NECK STROKE Result Date: 10/19/2022 PROCEDURE: CT ANGIO BRAIN NECK STROKE, DATE/TIME OF EXAM: 10/19/2022 8:16 AM, LOCATION [facility] INDICATION: Code Stroke ADDITIONAL CLINICAL INFORMATION: [...] DATE/TIME OF EXAM: 10/19/2022 8:04 AM, LOCATION [facility] INDICATION: Code Stroke ADDITIONAL CLINICAL INFORMATION: [...] pending PT/OT Evaluation: pending Smoking cessation; will tariff counsel: N/A ?? Neurological ?? R M1 [...] pending PT/OT Evaluation: pending Smoking cessation; will tariff counsel: N/A Migraine - verapamil 40 TID [...] Gastrointestinal ? No acute issues ?? - FIXED CAPITAL CLERK swallow evaluation Renal/Electrolytes ? No acute issues [...] pushes. Patient needs to lay flat so FIXED CAPITAL CLERK swallow assessment not possible for the time [...] as patient needs to lie flat and FIXED CAPITAL CLERK cannot evaluate. Cardiovascular Pulse Min: 94 Max: [...] Protonix 40 mg home medication ordered. - FIXED CAPITAL CLERK swallow evaluation: pending FIXED CAPITAL CLERK - Diet: starting tube feeding - Last [...] Case findings discussed with Dr. Guru MD Consuelo Brown Medical Student, M3 [facility]. Associated attestation - Dary Garvey MD [...] 0824 10/19/22 0808 06/15/22 0757 12/09/18 0812 05205503/01/16 0817 SODIUM - - - 138 135* [...] Gardner SLP - 10/19/2022 1:20 PM CDT [facility] Department of Physical Medicine & Rehabilitation Progress Note Patient: Consuelo Darby Med Record Number: [id number] Date of : 1980 Age: [age] year old 10/19/22 1320 Missed Visit Missed Visit Other (Comment) FIXED CAPITAL CLERK orders received and acknowledged. Per consultation with RN pt not cleared to sit up to participate in swallow evaluation until later this date. FIXED CAPITAL CLERK will reattempt as appropriate. Speech Language Pathologist [...] Information Primary Emergency Contact: Hi Darby Address: [address] [place] [address] [place] [address] [facility] Relation: Spouse Secondary Emergency Contact: Sandra Disla [facility] Mobile Relation: Mother Insurance: Payer/Plan Subscriber Name Rel Member # Group # [facility]LL[facility]* CONSUELO DARBY [id number] [address] [address] Prior level of functioning: Independent with ADL's Cognition: Alert Mental Health History: None Employment/income status: Unknown Alcohol/Drug/Tobacco: None Prior Stroke: None Co-morbidities: None Medication Needs: Yes Established Resources: Community Resource Contact Information: Referral: Yes If patient requires HHC at discharge, he/she requests: Anticipated level of care provider: None Equipment at Home: None Recommended/Needed DME: Other - Comment (Pending PT, OT evaluation) PCP: Yvan Booth MD Transportation: Family Coping Strengths: Mother and are supportive. Short Term Goals: Resolution Analyst Goals: Family/Support included in planning: Yes Patient and Family Questions/Concerns: None at present. Discharge Plan: Anticipated level of care at discharge: Home, Acute Rehab Facility Anticipated Discharge Date: 10/26/22 Bulmaro Ochoa RN BSN pmo manager [phone] * Yoon Cuadra PharmD - 10/19/2022 12:29 PM CDT [facility] Pharmacy Medication History Note The current home/prior to admission (TALENT MANAGER) medication list has been reviewed by [...] please do not hesitate to contact the [facility] pharmacy dept ([phone]). Thank you. Assessment Completed by: Yoon Cuadra [...] MD - 10/19/2022 8:03 AM CDT [facility] Stroke History and Physical Consuelo Darby [...] N/A Code Stroke Paged 7:26am Arrival at [facility] ED 7:52am NIHSS Completed 7:56am [facility] 8:02am TNK orders placed 8:21am TNK begun 8:25am History of Present Illness Consueol Darby is a 41yo M who developed [...] No aphasia; normal. 10 Dysarthria 1 = Yfzf-dl-xdbdzelh dysarthria; patient slurs at least some words [...] neuroimaging? no 3. Baseline disability with modified Hampden score greater than or equal to 3? [...] pending PT/OT Evaluation: pending Smoking cessation; will tariff counsel: N/A Neurological R M1 ischemic stroke; [...] pending PT/OT Evaluation: pending Smoking cessation; will tariff counsel: N/A Cardiovascular No acute issues - [...] respiratory distress Gastrointestinal No acute issues - FIXED CAPITAL CLERK swallow evaluation Renal/Electrolytes No acute issues - [...] 23 -- Recent Labs Component Name 10/20/22 0302 10/19/22 0824 06/15/22 0757 NA 138 139 138 [...] 117* No results for input(s): HGBA1C, A1C, ZBOCPYDNP4V, EAG in the last 64277 hours. Recent Labs Component Name 10/20/22 03010/19/22 0824 06/15/22 0757 PLTCOUNT [id number] documented in this encounter Procedure Notes * Isacc Lizama MD - 11/05/2022 12:54 PM CDTProcedure(s): SD CATH BLADDER SIMPLE TEMP Pre-Procedure Diagnose(s): Urinary [...] the meatus 3 separate times. A 14 Turkmen silicone puentes catheter was covered with sterile [...] catheter. Please reference table below. Level Puentes Hamlin Sample Patient 1 Teaching Puentes (i.e. Medical student, Tech, RN) - Female without urologic history 2 Registered Nurse, Any Physician, Any Advanced Practitioner - Male >65 yo 3 Charge or Experienced Nurse, Urology WILLOW MACHINE OPERATOR, Urologist - Multiple failed attempts [...] completion, the catheter was connected to the site monitor and calibrated. Appropriate waveform and blood [...] file Occupational History ??? 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 Smoking status: [...] No Stress: No Stress Concern Present (10/19/2022) [place] of Occupational Health - Occupational Stress Questionnaire [...] answer any further questions. Jean Perry MD [facility] Dermatology Resident, PGY-4 Associated attestation - Jovany Lindsay MD - 11/15/2022 9:24 PM CDT Attending Physician Supervisory Note I have seen and examined the patient with the resident and I agree with the findings and plan of care as documented by the resident. Date of Service : 11/15/2022 Jovany Lindsay MD Professor Department of Dermatology [facility] * Jean Perry MD - 11/14/2022 5:00 [...] History ??? 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 Smoking status: [...] No Stress: No Stress Concern Present (10/19/2022) [place] of Occupational Health - Occupational Stress Questionnaire [...] will continue to follow. Jean Perry MD [facility] Dermatology Resident, PGY-4 Associated attestation - Jovany Lindsay MD - 11/15/2022 9:45 PM CDT Attending Physician Supervisory Note Discussed with resident, pt is improving. Pt was not seen by me. Jovany Lindsay MD Professor Department of Dermatology [facility] * Alhaji Otoole MD - 11/14/2022 7:57 AM CDTAssociated Order(s): IP CONSULT TO HEMATOLOGY [facility] Hematology/ Oncology CONSULT NOTE Admission Date: 10/19/2022 Patient: Consuelo Daryb Sex: female Age: [age] year old Date [...] file Occupational History ??? 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 Smoking status: [...] No Stress: No Stress Concern Present (10/19/2022) [place] of Occupational Health - Occupational Stress Questionnaire [...] results for input(s): TROPONINI in the last 82634 hours. Amylase/Lipase: No results for input(s): CHELI in the last 29688 hours. Recent Labs Component Name 07/07/13 2319 [...] Palacios MD - 11/12/2022 5:45 PM CDT [facility] INTERNAL MEDICINE CONSULT NOTE Admission Date: 10/19/2022 [...] RUQ pain. 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 Past Medical History: Current Past [...] History ??? 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 Smoking status: [...] No Stress: No Stress Concern Present (10/19/2022) [place] of Occupational Health - Occupational Stress Questionnaire [...] results for input(s): TROPONINI in the last 08864 hours. Amylase/Lipase: No results for input(s): CHELI in the last 59077 hours. Recent Labs Component Name 07/07/13 2319 [...] LABS Recent Labs Component Name 11/12/22 0532 10/27/229 10/27/22 0054 WBC 4.8 - 19.5* HGB 9.4* [...] file Occupational History ??? 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 Smoking status: [...] No Stress: No Stress Concern Present (10/19/2022) [place] [employer] Occupational Health - Occupational Stress Questionnaire [...] will continue to follow. Tim Rios MD [facility] Dermatology Resident, PGY-2 Associated attestation - Jovany Lindsay MD - 11/15/2022 9:43 PM CDT Attending Physician Supervisory Note I have examined the patient's photo with the resident and I agree with the findings and plan of care as documented by the resident. Date of Service : 11/12/2022 Jovany Lindsay MD Professor Department of Dermatology [facility] * Emir Rooney PA-C - 11/10/2022 12:47 [...] > Dictated by Tim Major MD (residential installer). Alexx Ornelas have personally reviewed and interpreted this examination/study. > Interpreting Provider: Alexx Lopez on 11/07/2022 10:30 PM XR ABDOMEN KUB PORTABLE Result Date: 11/06/2022 IMPRESSION: Non-obstructive bowel gas pattern. Report dictated by Mc Castro MD, (residential installer). Pepe Ornelas MD have personally reviewed and [...] at ~1230. Emir Rooney PA-C Interventional Radiology [phone] Associated attestation - César Rain MD - [...] the same conclusion. César Rain MD, DABR Advertising Specialist, [facility]. Vascular and Interventional Radiologist Minimally Invasive Specialist Endovascular interventions for Peripheral Arterial Disease ( PAD) / DVT/ Varicose veins and Pulmonary Embolism Endovascular interventions for Dialysis access Prostate Artery Embolization for BPH in men Uterine Fibroid Embolization for Uterine fibroids in Women For Outpatient/ inpatient appointments : For referrals to VIR: Ambulatory Referral to Interventional Radiology ([id number]) [facility] Coordinator: [phone] [place] Inpatient consults: WILLOW MACHINE OPERATOR Ascom [phone] [facility] Hospital Coordinators : [phone] [facility] Inpatient consults:[phone] For Hospital to Hospital VIR Transfers * [...] hours on 11/09/2022 > Interpreting Provider: Pepe Gnozalez MD on 11/10/2022 12:[address] ANGIO CHEST PULM EMBOLISM Result Date: 11/07/2022 Impression: 1.No evidence of acute pulmonary embolism. There is no radiographic evidence of right heart strain. 2.No other acute process within the chest. > Dictated by Tim Major MD (residential installer). IAlexx have personally reviewed and interpreted this examination/study. > Interpreting Provider: Alexx Lopez on 11/07/2022 10:30 PM XR ABDOMEN KUB PORTABLE Result Date: 11/06/2022 IMPRESSION: Non-obstructive bowel gas pattern. Report dictated by Mc Castro MD, (residential installer). I, Pepe Gonzalez MD have personally reviewed [...] > Dictated by Tim Major MD (residential installer). I, Alexx Lopez have personally reviewed and [...] Care Surgery 11/10/22 Associated attestation - Jacques oNvoa DO - 11/10/2022 7:06 PM CDT I examined patient with resident team on the date of service. I agree with above note and plan. Jacques Novoa DO * Salinas Chapin MD - 11/09/2022 10:01 AM CDTAssociated Order(s): IP CONSULT TO UROLOGY Images from the original note were not included. [facility] Division of Urologic Surgery New Consult [...] status: Occupational History ??? 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 Smoking status: [...] Stroke assessment completed 10/19. Maru Mcduffie RN [phone] Care Coordination Nurse Electronic Warfare Officer * Cass Gomez APRN-BALANCE SCREWHEAD POLISHER - 10/30/2022 8:17 AM CDTAssociated Order(s): IP [...] s/p tenecteplase and thrombectomy (10/19/2022), right sided ylfwkl-nuxxot-ebpfdrgd decompressive sonya-craniectomy for refractory ICP (10/20/2022) and [...] is dictated by Kayla Stevenson MD (residential installer) 1 I, Lonnie Rae MD have personally [...] is dictated by Miranda Bowen MD (residential installer) Oriana Ornelas MD have personally reviewed and [...] > Dictated by Clarisa Cantrell MD (residential installer). IAlexx have personally reviewed and interpreted this [...] is dictated by Miranda Bowen MD (residential installer) Joni Ornelas MD have personally reviewed and [...] right lateral ventricle, and approximately 3-4 mm hvwbw-cy-ubdy midline shift, grossly similar to the prior. [...] Report dictated by Tim Major MD (residential installer). IJasper MD have personally reviewed and interpreted [...] 10:11 AM CDTAssociated Order(s): IP CONSULT TO MOBILE THERAPIST Social Work Consult Note Consult acknowledged Chart reviewed Reason for Consult: SW consulted by Bulmaro Ochoa RN for Patient Admission in facility Comments: Patient is tentatively scheduled for OR 10/30 for right femoral cutdown, thrombectomy, angiogram with possible intervention, possible vein harvest. Patient will need updated therapy orders and notes following surgery. Patient is an [employer] [employer] employee w/ [facility]/[employer] insurance. [facility] Reinforcing Steel Machine Operator Becky is following for disposition needs Discharge Plan: Post acute recommendation: Undetermined or Intense 3 hour per day multidisciplinary inpatient therapies Discharge Facility Information: [facility] Anticipated Discharge Date: 11/03/22 Payer/Plan Subscriber Name Rel Member # Group # [facility] WELL* CONSUELO DARBY [id number] [address] [address] Emergency Contacts: Extended Emergency Contact Information Primary Emergency Contact: Hi Darby Address: [address] [place] [address] [place] [address] [facility] Relation: Spouse Secondary Emergency Contact: Sandra Disla [facility] Mobile Relation: Mother Thank you for the referral, JAYLENE Holcomb, HUMERA [facility] 10/28/2022 10:12 AM * Jovana Armstrong MD [...] occlusion of the R EIA + proximal BROADCAST PROGRAM DIRECTOR extending into the profunda with reconstitution identified [...] is dictated by Miranda Bowen MD (residential installer) Oriana Ornelas MD have personally reviewed and [...] > Dictated by Clarisa Cantrell MD (residential installer). I, Alexx Lopez have personally reviewed and interpreted this examination/study. > Interpreting Provider: Alexx Lopez on 10/25/2022 4:16 PM Vascular Surgery High Risk Variables: Cardiac Arrhythmia: no Malnutrition: no Cardiomyopathy: no Chronic Kidney Disease: no Dementia: no Fluid & Electrolyte Disorders: no Respiratory Failure: no Shock: no Cachexia: no Coagulation Defect: ayl-pvxzxkbx-nga gtt Jovana Armstrong MD PGY-6 Vascular Surgery Fellow 10/26/22 12:25 PM * Hodan Oliveira RN - 10/25/2022 11:08 AM CDTAssociated Order(s): IP CONSULT TO CONCRETE VIBRATOR OPERATOR I have been consulted due to the possibility or diagnosis of stroke, chart reviewed. Patient Name: Consuelo Darby Arrival: Start: Start (10/19/22 08) EMS Activated Code Stroke: Yes Arrival Mode: EMS Arrival Service(document name here): [place] [id number] (10/19/22 08) EMS Glucose Bedside (mg/dL): 141 mg/dL (10/19/22 08) EMS BP: 136/84 (10/19/22819) Last Known Well: Last known to be [...] based on HgBA1c: Diabetic I) HGBA1C >6.5 Palliative Nurse has been consulted per protocol to provide [...] right lateral ventricle, and approximately 3-4 mm ygahp-sk-stff midline shift, grossly similar to the prior. [...] Report dictated by Tim Major MD (residential installer). I, Jasper Sifuentes MD have personally reviewed [...] report is dictated by Miranda Bowen MD(residential installer) Jasper Ornelas MD have personally reviewed and [...] hemorrhage. Report dictated by Lorenzo Horta MD (vice president sales). Lonnie Ornelas MD have personally reviewed [...] prior. > Dictated by Bassam Jovel M.D. (vice president sales) Gonzalez Ornelas MD have personally reviewed [...] Darby. Hodan Oliveira RN, BSN Stroke Navigator, [facility] Ascom: [phone] Email: [email or web address] * Ernestine Almanza DMD - 10/24/2022 8:34 [...] Race: White/ Ethnicity: Not or Origin Languages Somali [facility] [employer] [facility] [id number] Employer: [employer] CSN: [id number] [employer]: [id number] E#: [id number] Contact Information [phone] (Home Phone) [phone] (Work Phone) Alternate Senior Mechanical Engineer ?? +1 more?? Hi Darby (Spouse) [phone] (Home Phone) Unit: [facility] 3N ICU Bed: 309 / 01 Current location: [facility] MRI * Liam Parks MD - 10/24/2022 1:06 PM CDT [facility] Infectious Diseases Consultation Patient Name: Consuelo Darby 1980 Room: [facility] Date of Admission: 10/19/2022 Date of Service: 10/24/2022 Primary Care Physician: Yvan Booth MD Attending Physician: Emir Vail MD Reason for Infectious Disease Consultation Aortic valve vegetation, infective endocarditis rule out History of Present Illness HPI: Consuelo Darby is a 41 year old female with a past medical history significant foressential hypertension, migraine, GERD. Patient presented to [facility] on 10/19/2022 as code stroke due [...] or tick bites. She lives with in [place], [place]. 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. They recently went to a trip to [place] for vacation, she bathed in the sea [...] TUMOR/POLYP/LESION (ANY METHOD) Social History As per [facility] Social History Socioeconomic History ??? Marital status: Spouse name: Not on file ??? Number of children: Not on file ??? Years of education: Not on file ??? Highest education level: Not on file Occupational History ??? 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 Smoking status: [...] No Stress: No Stress Concern Present (10/19/2022) Romanian [place] [employer] Occupational Health - Occupational Stress Questionnaire [...] History Current Antibiotics None Prior Antibiotics At [facility] Cefazolin 10/20 Vancomycin 10/20 Home Medications Prior [...] capsule by mouth at bedtime 10/17/22 Armand Jacinot MD Vitamin D3, cholecalciferol, 50 MCG (1999) [...] 199 - BMP: Recent Labs Component Name 10/23/22202810/23/22 01210/21/22 2316 10/20/22 0302 10/19/22 0824 06/15/22 0757 [...] Liam Parks MD (PGY-5) Infectious Diseases Fellow [facility] Pager: [phone] ID Clinic Associated attestation - Arturo Delacruz [...] coordination of care. 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 Smoking status: [...] assess as she was intubated. 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 MSK: No synovitis, dactylitis, or enthesitis. [...] Range INR 0.9 0.9 - 1.2 Device [id number] Administrative Fellow ID [id number] EKG 12-LEAD Result Value Ref Range Ventricular Rate 129 BPM Atrial Rate 129 BPM P-R Interval 134 ms QRS Duration ms 90 ms Q-T Interval ms 318 ms QTC Calculation (Bezet) 465 ms Calculated P Robards 55 degrees Calculated R Robards 13 degrees Calculated T Robards 5 degrees Interpretation EKG SINUS TACHYCARDIA OTHERWISE NORMAL ECG NO PREVIOUS ECGS AVAILABLE Confirmed by FLORA OTT MD ([id number]) on 10/19/2022 5:38:23 PM CBC W AUTO [...] BUBBLE STUDY Result Value Ref Range BSA 2.1103747 m2 LV biplane EF 64 54 - [...] Age Predicted HR 181 Target HR 154 [id number] 6.054 cm WEJSD7JK 5.318 cm LEFT VENTRICLE STROKE VOLUME BIPLANE [...] Dr. Jasso. Josue Castellanos MD Rheumatology Fellow [facility] [employer] Associated attestation - [...] Rheumatology Fellowship Program Department of Internal Medicine [facility] * Jaden Ordaz, PRINCIPAL EXAMINER-BALANCE SCREWHEAD POLISHER - 10/23/2022 3:23 PM CDTAssociated Order(s): IP CONSULT TO CARD SURGERY - CARDIAC TEAM CARDIAC SURGERY Consult H&P Patient Name: Consuelo Darby : 1980 Private Inspector Barrel: Dr. Stuart PCP: Yvan Booth MD Referring Facility: [facility] Subjective: Consuelo Darby is a 41 year [...] 143* 179* 180* O2SAT 99 99 99 SYF5BGK 19.2* 18.1* 20.3 ECHO: TTE- Left??Ventricle: Left [...] and final recommendations to follow. Jaden Ordaz APRN-ASHOK 10/23/2022 3:25 PM Associated attestation - Mahad [...] . Consuelo Darby in consultation at [facility] on 10/23/2022 for evaluation of vegetation [...] EXAM: General appearance: sedated and intubated HEENT: Volant noted in the scalp Neck: The thyroid [...] results for input(s): MG in the last 64978 hours. Recent Labs Component Name 10/23/22 0129 [...] bacterial vegetation (aortic side). Differential also includes eip-vdshlwakl-kxhojzotoq-endocarditis (NBTE)/ Libman- Sachs vegetation. Follow up work [...] Units Date/Time GLUCOSE - POINT OF CARE [[id number]] Collected: 10/22/22 0858 Order Status: Completed Specimen: Blood Updated: 10/22/22 0859 Glucose WB/POC 109 mg/dL Specimen Type Cap Fingerstick PLATELET COUNT AUTO CITRATED BLOOD [[id number]] (Normal) Collected: 10/22/22 0153 Order Status: Completed Specimen: Blood Updated: 10/22/22 0221 Platelet Count Citrated Blood 199 10??3/uL CBC W AUTO DIFFERENTIAL [[id number]] (Abnormal) Collected: 10/21/222315 Order Status: Completed Specimen: [...] % Immature Granulocytes Absolute 0.13 MAGNESIUM BLOOD [[id number]] (Normal) Collected: 10/21/222315 Order Status: Completed Specimen: Blood Updated: 10/21/22 2351 Magnesium 2.2 mg/dL PHOSPHORUS BLOOD [[id number]] (Abnormal) Collected: 10/21/222315 Order Status: Completed Specimen: Blood Updated: 08/12/23 2351 Phosphorus 2.7 mg/dL BASIC METABOLIC PANEL (CALCIUM TOTAL) [[id number]] (Abnormal) Collected: 10/21/222315 Order Status: Completed Specimen: Blood Updated: 10/21/222350 BUN 16 mg/dL Creatinine 0.65 mg/dL Sodium 142 mmol/L Potassium 3.7 mmol/L Chloride 111 mmol/L CO2 20 mmol/L Glucose 120 mg/dL Calcium 8.0 mg/dL Anion Gap 15 BUN/Creatinine Ratio 25 Osmolality Calculated 296 mOsm/kg eGFR by CKD-EPI >90 mL/min/1.73 m2 GLUCOSE - POINT OF CARE [[id number]] (Abnormal) Collected: 10/21/222317 Order Status: Completed Specimen: Blood Updated: 10/21/222322 Glucose WB/POC 171 mg/dL Specimen Type Venous PROTEIN S ACTIVITY [[id number]] (Abnormal) Collected: 10/20/22301 Order Status: Completed Specimen: [...] reference intervals for this test in the [facility] Test Directory (Exep[facility]). Performed By: [facility] [address] [place] [address] [employer] Supervisor: Boo Bond MD, PhD CLIA Number: [id number] PROTEIN C ACTIVITY [[id number]] Collected: 10/20/22301 Order Status: Completed Specimen: Blood [...] reference intervals for this test in the [facility] Test Directory ([employer]). Performed By: [facility] [address] [place] [address] [employer] Supervisor: Boo Bond MD, PhD CLIA Number: [id number] GLUCOSE - POINT OF CARE [[id number]] (Abnormal) Collected: 10/21/221842 Order Status: Completed Specimen: Blood Updated: 10/21/22 184 Glucose WB/POC 129 mg/dL Specimen Type Cap Fingerstick GLUCOSE - POINT OF CARE [[id number]] (Abnormal) Collected: 10/21/22 1210 Order Status: Completed [...] bedside Radames Hinkle MD Neurology Resident. [facility]. Associated attestation - Dary Garvey MD [...] No GI issues noted, Last BM was TALENT MANAGER. On daily Senna. Labs reviewed, noted [...] Other (Comment) (has not been assessed by FIXED CAPITAL CLERK) Pain affectingintake: No Estimated Needs: KCAL: 7185-3386 (20-25kcal/kg IBW) Protein (g): >110 (>2g/kg IBW) [...] Component Value Units Date/Time HGB HCT PANEL [[id number]] Updated: 10/20/22 1512 Order Status: Sent Specimen: Blood HEMOGLOBIN A1C [[id number]] (Abnormal) Collected: 10/20/22 1015 Order Status: Completed [...] to evaluate metabolic control in patients. Reference: [place] Diabetes Association, Standards of Care in Diabetes -2020 In patients 70 years and older consider HbA1c target range of 7.0-7.5% (Reference: Ronal David et al. JAMDA. 2012) The Sebia assay for the measurement of HbA1c is a National Glycohemoglobin Standardization Program (NGSP) certified method. GLUCOSE - POINT OF CARE [[id number]] (Abnormal) Collected: 10/20/22 113 Order Status: Completed Specimen: Blood Updated: 10/20/22 114 Glucose WB/POC 124 mg/dL Specimen Type Cap Fingerstick LUPUS ANTICOAGULANT PANEL [[id number]] Collected: 10/20/22 0302 Order Status: Completed Specimen: [...] of APAS. GLUCOSE - POINT OF CARE [[id number]] (Abnormal) Collected: 10/20/22743 Order Status: Completed Specimen: Blood Updated: 10/20/22753 Glucose WB/POC 32 mg/dL Specimen Type Cap Fingerstick GLUCOSE - POINT OF CARE [[id number]] (Abnormal) Collected: 10/20/22746 Order Status: Completed Specimen: Blood Updated: 10/20/22753 Glucose WB/POC 118 mg/dL Specimen Type Cap Fingerstick BASIC METABOLIC PANEL (CALCIUM TOTAL) [[id number]] (Abnormal) Collected: 10/20/22301 Order Status: Completed Specimen: Blood Updated: 10/20/22335 BUN 6 mg/dL Creatinine 0.50 mg/dL Sodium 138 mmol/L Potassium 3.6 mmol/L Chloride 108 mmol/L CO2 21 mmol/L Glucose 140 mg/dL Calcium 8.2 mg/dL Anion Gap 13 BUN/Creatinine Ratio 12 Osmolality Calculated 286 mOsm/kg eGFR by CKD-EPI >90 mL/min/1.73 m2 LIPID PROFILE [[id number]] (Abnormal) Collected: 10/20/22301 Order Status: Completed Specimen: [...] >500 mg/dL: Very High CBC W/O DIFFERENTIAL [[id number]] (Abnormal) Collected: 10/20/22301 Order Status: Completed Specimen: Blood Updated: 10/20/22 0330 WBC 19.5 10??3/uL RBC 3.83 10??6/uL Hemoglobin 11.9 g/dL Hematocrit 35.4 % MCV 92.4 fL MCH 31.1 pg MCHC 33.6 g/dL RDW-SD 45.7 fL RDW-CV 13.5 % Platelet Count 292 10??3/uL MPV 9.9 fL nRBC Absolute 0.00 10??3/uL nRBC Auto 0.0 /100 WBC PROTEIN S ACTIVITY [[id number]] Collected: 10/20/22301 Order Status: Sent Specimen: Blood Updated: 10/20/22308 PROTEIN C ACTIVITY [[id number]] Collected: 10/20/22301 Order Status: Sent Specimen: Blood Updated: 10/20/22308 GLUCOSE - POINT OF CARE [[id number]] (Abnormal) Collected: 10/19/221949 Order Status: Completed Specimen: [...] bedside Radames Hinkle MD Neurology Resident. [facility]. Associated attestation - Dary Garvey MD [...] workup/prevention per stroke team NSGY consulted for C watch Repeat CTH if exam change and [...] watch. Patient medications include no blood thinners. [facility] NEUROSURGERY HIGH RISK VARIABLES Severe Brain [...] IP CONSULT TO PHYSICAL MED AND REHAB [facility] Rehab has initiated an evaluation per stroke protocol. Will continue to follow for medical stability and tolerance/participation in therapies. Thank you for the referral. Elida Yancey RN, BSN Clinical Liaison [facility] [phone] * Stacy Lopez RD/OMAIRA - 10/20/2022 8:48 [...] Elevated TG, no A1c in EMR. BM TALENT MANAGER. Assessment: Med/Surg History and Clinical Diagnoses: [...] Other (Comment) (has not been assessed by FIXED CAPITAL CLERK) Pain affectingintake: No Estimated Needs: KCAL: 1650 [...] Nutrition Goal Progress: New goal established Ascom 0470 * Radames Hinkle MD - 10/19/2022 3:48 [...] pushes. Patient needs to lay flat so FIXED CAPITAL CLERK swallow assessment not possible for the time [...] 5/5 5/5 5/5 5/5 Left 1/5 1/5 /5 /5 Muscle Stretch Reflexes BI TRI BR PAT ACH TOES Right 2 2 2 2 2 Down Left 2 2 2 2 2 Down Sensory Light Touch Not tested Noxious Stimuli Symmetric and bilateral Temperature Not tested Pallesthesia Not tested Cerebellar REYNOLD due to patient condition Gait Deferred Labs: Lab Results-Last 24 Hours Procedure Component Value Units Date/Time URINE DRUG SCREEN IMMUNOASSAY [[id number]] (Normal) Collected: 10/19/221409 Order Status: Completed Specimen: Urine Updated: 10/19/22 144 Amphetamines Screen Urine Negative Barbiturates Screen Urine Negative Benzodiazepine Screen Urine Negative Opiates Urine Negative Cocaine Metabolites Urine Negative Phencyclidine Screen Urine Negative Cannabinoids Screen Urine Negative Methadone Screen Urine Negative Fentanyl Screen Urine Negative Narrative: The Urine Toxicology Screening Panel does not screen for Propoxyphene, Meprobamate, Carisoprodol, Trazodone, gdnm-vkv-gagouga medications and/or volatiles (Acetone, Isopropanol, Methanol or Ethylene Glycol). Ethanol, Salicylate, Acetaminophen, Tricyclic Antidepressants and several therapeutic drugsmay be individually assayed in serum or plasma specimen. Toxicology testing by the [facility] is an aid to medical diagnosisand treatment of patients. No documented chain of custody was maintained. Results are intended to be used for clinical purposes only. HCG URINE QUALITATIVE [[id number]] (Normal) Collected: 10/19/221409 Order Status: Completed Specimen: Urine Updated: 10/19/221428 Test Urine Negative PT-INR [facility] [[id number]] (Normal) Collected: 10/19/22 0824 Order Status: Completed Specimen: Blood Updated: 10/19/22 09 PT 12.3 Seconds INR 0.9 Comment: The suggested therapeutic range for standard coumadin (warfarin) therapy is an INR of 2.0-3.0. For high-risk patients (Mechanical Mitral Valve Prosthesis, etc.), the suggested prophylactic therapeutic range is an INR of 2.5-3.5. TROPONIN-I HIGH SENSITIVE BASELINE + 1HR [[id number]] Order Status: Sent Specimen: Blood HEMOGLOBIN A1C [[id number]] Order Status: Sent Specimen: Blood COMPREHENSIVE METABOLIC PANEL [[id number]] (Abnormal) Collected: 10/19/22823 Order Status: Completed Specimen: [...] >90 mL/min/1.73 m2 CBC W AUTO DIFFERENTIAL [[id number]] (Abnormal) Collected: 10/19/22823 Order Status: Completed Specimen: [...] Immature Granulocytes Absolute 0.04 HCG URINE QUALITATIVE [[id number]] Order Status: Canceled Specimen: Urine CREATININE - POCT INTERFACED [[id number]] (Normal) Collected: 10/19/22807 Order Status: Completed Specimen: Blood Updated: 10/19/22817 Creatinine POCT 0.78 mg/dL eGFR >90 mL/min/1.73 m2 GLUCOSE - POINT OF CARE [[id number]] Collected: 10/19/22 0756 Order Status: Completed Specimen: [...] as patient needs to lie flat and FIXED CAPITAL CLERK cannot evaluate. Cardiovascular Pulse Min: 94 Max: 130, BP Min: 120/73 Max: 174/91 Hx Hypertension - On Metoprolol 25 mg BID at home - Holding as patient needs to lie flat and FIXED CAPITAL CLERK cannot evaluate. Strict BP goal of SBP<140 [...] Protonix 40 mg home medication ordered. - FIXED CAPITAL CLERK swallow evaluation: pending - Diet:pending FIXED CAPITAL CLERK swallow eval. IVF ordered till tomorrow afternoon [...] Feeds/Fluids: NaCL continuous infusion until evaluation by FIXED CAPITAL CLERK Analgesia: tylenol IV for back pain Sedation: [...] bedside Radames Hinkle MD Neurology Resident. [facility]. Associated attestation - Dary Garvey MD [...] 12:18 PM CDTAssociated Order(s): IP CONSULT TO MOBILE THERAPIST Consult acknowledged New patient to Stroke Caseload Chart reviewed Stroke type: Ischemic Patient is currently undergoing medical interventions/evaluations; Cerebral angiogram today. Patient is not medically ready to transition to next level of care Post acute recommendation: Undetermined; pending skilled therapy evaluations Insurance authorization is required Payer/Plan Subscriber Name Rel Member # Group # [employer]* CONSUELO DARBY Juma [id number] [address] [address] Please refer to Nurse Electronic Warfare Officer's Stroke Psychosocial Assessment note for additional information SW will continue to follow for disposition needs as appropriate Thank you for the referral, JAYLENE Holcomb MBA [facility] 10/19/2022 12:19 PM documented in this encounter [...] procedure and its findings. Royer Stovall MD [employer] 11/15/22 1:09 PM I , , was [...] 11/10/221740 Tube Feed Syringe Change Date 11/09/22 11/10/22 [...] Assessment WDL 11/10/22 174 Dressing Type Gauze 11/10/221740 Dressing Status Clean, Dry, Intact 11/10/22 08 [...] MD - Primary * Gisselle Florentino MD Supervisor Paper Products(s): Rachna Yuko, DO Anesthesia Type: general ETT Complications: none Findings: PT and AT signals completed at conclusion of case EBL: 200 mL Urine Output : 500 mL IV Fluid Intake: per anesthesia Drains: Enteral - Nasal/Oral Naso-gastric Nostril/Nare;Left (Active) Output Description None/NA 10/30/22 0800 Tube Status Clamped 10/30/22 0800 Surrounding Skin Dry;Intact 10/30/22 0800 Site Assessment [facility] 10/30/22 0800 Tube Repositioned No 10/30/22 0800 External Tube Length (cm) 64 cm 10/30/22 0600 Position verified Auscultation 10/30/22 0800 Residual Amount (ML) *Excluding Tungsten* 0 ML 10/29/22 1800 Flush Amount 100 ML 10/29/22 2000 Flush Type Water 10/29/22 2000 [REMOVED] Drain 1 Flat Anterior;Left;Upper Head (Removed) Drain Output Amount 20 ml 10/23/22 0400 Status Patent;Device Compressed 10/23/22 1200 Site/Line Assessment [facility] 10/23/22 1200 Dressing Type Not Applicable 10/23/22 1200 Dressing Status Other 10/23/22 1000 Output Description Serosanguinous 10/23/22 1200 [REMOVED] Enteral - Nasal/Oral Naso-gastric Nostril/Nare;Right (Removed) Output Description Yellow;Green;Bile 10/22/22 0600 Tube Status Clamped 10/23/22 0800 Surrounding Skin Dry;Intact 10/23/22 0800 Site Assessment [facility] 10/23/22 0800 Internal Tube Length (cm) 65 cm 10/23/22 0800 Position verified X-Ray ;Stomach contents obtained 10/23/22 0800 Intake (ml) 90 ml 10/22/22 1800 Flush Amount 255 ML 10/23/22 0600 Flush Type Water 10/23/22 0600 [REMOVED] Enteral - Nasal/Oral Naso-gastric Nostril/Nare;Right (Removed) Tube Status Clamped 10/24/22 1000 Surrounding Skin Dry;Intact 10/24/22 1000 Site Assessment [facility] 10/24/22 1000 Internal Tube Length (cm) 65 [...] ML 10/28/22 1800 Flush Amount 100 ML 10/28/221999 Flush Type Water 10/28/221999 Specimen(s): ID Type Source Tests Collected by Time Destination A : right femoral thrombus Resection without Tumor Thrombus PATHOLOGY TISSUE Valdez Clay MD 10/30/2022 1218 Implant(s): Implant Name Type Inv. Item Serial No. Green Coffee Blender Lot No. LRB No. 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 Stuart Supervisor Paper Products(s): Richi Anderson MD Type of anesthesia: Dexmedetomidine and propofol per pump, details in MAR Administered 1% lidocaine orally. Sedation start: 903 Sedation stop: 949 Monitoring: Monitoring consisted of: heart rate, site monitor, continuous pulse oximetry, continuous capnography, frequent [...] Implant Name Type Inv. Item Serial No. Green Coffee Blender Lot No. LRB No. Used Action SYNTTHECEL DURA REPAIR [id number] Right 1 Implanted Kamari Mcfarlane MD * Operative - Jazz Marquez MD - 10/20/2022 6:58 PM CDT NAME: Consuelo Darby : 1980 DATE OF OPERATION: 10/20/2022 ATTENDING SURGEON: JAZZ MARQUEZ MD PREOPERATIVE DIAGNOSES: Malignant right MCA infarction POSTOPERATIVE DIAGNOSES: Same PROCEDURES PERFORMED: 1) Right sided omoilu-tctxcmo-ffrcdcit decompressive sonya-craniectomy for treatment of refractory intracranial hypertension 2) ICP monitor placement 3) Subgaleal drain insertion ATTENDING SURGEON: JAZZ MARQUEZ MD ASSISTANTS: hSawna Adkins M.D. ANESTHESIA: General. POSITION: Supine with [...] temporal squamous bone were made using the [employer] drill. The eduardo holes was undermined with a straight bone curette. After dissecting the dura carefully using a Sandee elevator then the craniotome B1 bit with a footplate was used to elevate the bone flap for a standard decompressive sonya-craniectomy. The bone flap was elevated using a Isabella #1 dissector. The dura was adherent to [...] Implant Name Type Inv. Item Serial No. Green Coffee Blender Lot No. LRB No. Used Action Agent Hmst Thrmb Kt Surgiflo 2Ml Agent Hmst Thrmb Kt Surgiflo 2Ml [employer] [id number] Right 1 Implanted SYNTTHECEL DURA REPAIR [id number] Right 1 Implanted [employer] Adhesion Barrier [id number] Right 1 Implanted ATTENDING ATTESTATION: I reviewed the resident's note and agree with the documented findings. I was present for the entireprocedure. Jazz Marquez MD 10/25/2022 5:37 PM * Brief Op Note - Jaime Drew MD - 10/19/2022 10:19 AM CDT IVR Post-Operative/Procedure Progress Note Surgeon: Mitali Walter Supervisor Paper Products(s): Isak Monte Pre-Procedure Diagnosis:R MCA M1 occlusion [...] MD - 10/19/2022 5:42 PM CDT [facility] Emergency Department Emergency Medicine Resident Note [...] Initial Electrocardiogram Rate: 126 Rhythm: sinus, tachy Robards: Normal Intervals: No SD QRS QT prolongation ST/ T wave: No Christopher/d, no significant ST or T wave abnormalities. No evidence of heart block, arrhythmia, ACS equivalents Impression: sinus tachycardia Imaging: CT ANGIO BRAIN NECK STROKE Final Result PROCEDURE: CT ANGIO BRAIN NECK STROKE, DATE/TIME OF EXAM: 10/19/2022 8:16 AM, LOCATION [facility] INDICATION: Code Stroke ADDITIONAL CLINICAL INFORMATION: [...] DATE/TIME OF EXAM: 10/19/2022 8:04 AM, LOCATION [facility] INDICATION: Code Stroke ADDITIONAL CLINICAL INFORMATION: [...] MD on 10/19/2022 8:15 AM IR [facility] THROMBECT (Results Pending) CT HEAD NON CONTRAST [...] not screen for Propoxyphene, Meprobamate, Carisoprodol, Trazodone, dtxx-rdq-ssrfcob medications and/or volatiles (Acetone, Isopropanol, Methanol or Ethylene Glycol). Ethanol, Salicylate, Acetaminophen, Tricyclic Antidepressants and several therapeutic drugsmay be individually assayed in serum or plasma specimen. Toxicology testing by the [facility] is an aid to medical [...] DATE/TIME OF EXAM: 10/19/2022 8:16 AM, LOCATION [facility] INDICATION: Code Stroke ADDITIONAL CLINICAL INFORMATION: [...] DATE/TIME OF EXAM: 10/19/2022 8:04 AM, LOCATION [facility] INDICATION: Code Stroke ADDITIONAL CLINICAL INFORMATION: [...] 10/19/2022 8:11 AM CDT Salo Darby () [phone] * Bharat Oreilly RN - 10/19/2022 8:02 AM CDT First slice * Jean Nam RN - 10/19/2022 7:53 AM CDT Bed: T04 Expected date: Expected time: Means of arrival: Comments: Code stroke @ 726 documented in this encounter Miscellaneous Notes * Clinical References AVS - Hodan Oliveira RN - 10/25/2022 11:31 AM CDT Images from the original note were not included. 73772 Prediabetes You have been diagnosed with prediabetes. [...] being physically active ?? Being ?? Being [place] ?? Being ?? Being ?? Being ?? [...] blurry vision Last Reviewed Date: 2021 ?? [id number] [employer]. All rights reserved. This information is not intended as a substitute for professional medical care. Always follow your healthcare professional's instructions. * Clinical References AVS - Hodan Oliveira RN - 10/25/2022 11:31 AM CDT 78124 Discharge Instructions for Stroke You have a [...] first appeared. Last Reviewed Date: 2021 ?? [id number] [employer]. All rights reserved. This information is not intended as a substitute for professional medical care. Always follow your healthcare professional's instructions.This information has been modified by your health care provider with permission from the publisher. * Clinical References AVS - Hodan Oliveira RN - 10/25/2022 11:25 AM CDT Images from the original note were not included. 77292 Thrombolytic Therapy for Stroke An ischemic stroke [...] thinners (anticoagulants). Also mention if you take hlmb-iwd-ggffaim medicines, herbal medicines, or other supplements. ?? [...] dosages of each, in your wallet. Include ihkm-fra-jhtglhm medicines, vitamins, and supplements. ?? Write a [...] stroke-like symptoms. Last Reviewed Date: 2021 ?? [id number] [employer]. All rights reserved. This information is not intended as a substitute for professional medical care. Always follow your healthcare professional's instructions. This information has been modified by your health care provider with permission from the publisher. * Clinical References AVS - Hodan Oliveira RN - 10/25/2022 11:25 AM CDT 30427 Understanding Mechanical Thrombectomy for Ischemic Stroke Mechanical [...] Chest pain Last Reviewed Date: 2021 ?? [id number] [employer]. All rights reserved. This information is not intended as a substitute for professional medical care. Always follow your healthcare professional's instructions. * Clinical References AVS - Hodan Oliveira RN - 10/25/2022 11:25 AM CDT Images from the original note were not included. 94749 What Is Ischemic Stroke? The brain needs [...] first appeared. Last Reviewed Date: 2021 ?? [id number] [employer]. All rights reserved. This information is not intended as a substitute for professional medical care. Always follow your healthcare professional's instructions. * Coding Query - Shahbaz Bowen MD - 10/23/2022 6:21 PM CDT DOCUMENTATION CLARIFICATION REQUEST TO: Dr. Bowen FROM: Olga Mcintyre RN, CDS Email: [email or web address] Use the F2 function darden to complete [...] 1:51 PM CDT ACT LR - POCT ([facility]) Routine 10/30/2022 1:50 PM CDT BLOOD GAS+COOX+LYTES+METAB ARTERIAL POCT Routine 10/30/2022 1:33 PM CDT ACT LR - POCT ([facility]) Routine 10/30/2022 1:32 PM CDT BLOOD GAS+COOX+LYTES+METAB ARTERIAL POCT Routine 10/30/2022 12:59 PM CDT ACT LR - POCT ([facility]) Routine 10/30/2022 12:57 PM CDT TRANSFUSE RED BLOOD CELL LEUKOREDUCED UNIT(S) STAT 10/30/2022 12:57 PM CDT BLOOD GAS ART+LYTES+METAB+COOX POC NOTIF STAT 10/30/2022 12:50 PM CDT Primary hypertension ACT LR - POCT ([facility]) Routine 10/30/2022 12:26 PM CDT PATHOLOGY TISSUE Routine 10/30/2022 12:18 PM CDT Ischemia ACT LR - POCT ([facility]) Routine 10/30/2022 12:16 PM CDT ACT LR - POCT ([facility]) Routine 10/30/2022 12:07 PM CDT SD REMV ART CLOT ILIAC-POP,LEG INCIS 10/30/2022 11:31 [...] 6.0 - 8.3 g/dL 023 3:10 AM [facility] Albumin 2.8(L) 3.4 - 5.0 g/dL 11/17/2022 3:10 AM [facility] Bilirubin Total 0.4 0.2 - 1.2 mg/dL 10/2022 3:10 AM [facility] Bilirubin Conjugated 0.1 0.1 - 0.5 mg/dL 11/17/2022 3:10 AM [facility] Bilirubin Unconjugated 0.3 Unconjugated Bilirubin is a calculated value: Reference ranges have not been established. mg/dL 11/17/2022 3:10 AM [facility] Alkaline Phosphatase 94 40 - 150 U/L 11/17/2022 3:10 AM [facility] ALT 257(H) 5 - 55 U/L 11/17/2022 3:10 AM [facility] AST 138(H) 5 - 34 U/L 11/17/2022 3:10 AM [facility] Albumin/Globulin Ratio 0.7(L) 1.1 - 2.3 11/17/2022 3:10 AM [facility] Blood BLOOD SPECIMEN / Unknown Lab Venipuncture / Unknown 11/17/2022 2:02 AM CDT 11/17/2022 2:40 AM CDT Good Antunez MD LAB - CHEMISTRY BIBIANA BLACKMAN [facility] [address] [place] [address], [facility] [phone] * PHOSPHORUS BLOOD (11/17/2022 2:02 AM CDT) Pathologist [facility] [place] Phosphorus 3.6 2.9 - 5.1 mg/dL 11/17/2022 3:10 AM [facility] Blood BLOOD SPECIMEN / Unknown Lab Venipuncture / Unknown 11/17/2022 2:02 AM CDT 11/17/2022 2:40 AM CDT Good Antunez MD LAB - CHEMISTRY BIBIANA BLACKMAN Performing Organization Address City/[facility]/ZIP Co de Phone Number [address] [address], [facility] [phone] * MAGNESIUM BLOOD (11/17/2022 2:02 AM CDT) Pathologist [facility] Magnesium 2.5 1.6 - 2.6 mg/dL 11/17/2022 3:10 AM [facility] Blood BLOOD SPECIMEN / Unknown Lab Venipuncture / Unknown 11/17/2022 2:02 AM CDT 11/17/2022 2:40 AM CDT Good Antunez MD LAB - CHEMISTRY BIBIANA BLACKMAN Performing Organization Address [facility]/ZIP Co de Phone Number [address] [address], [facility] [phone] * (ABNORMAL) BASIC METABOLIC PANEL (CALCIUM TOTAL) (11/17/2022 2:02 AM CDT) Pathologist [facility] BUN 14 7 - 26 mg/dL 11/17/2022 3:10 AM [facility] Creatinine 0.62 0.56 - 0.96 mg/dL 11/17/2022 3:10 AM [facility] Sodium 138 136 - 145 mmol/L 11/17/2022 3:10 AM [facility] Potassium 4.0 3.5 - 4.5 mmol/L 11/17/2022 3:10 AM [facility] Chloride 99 98 - 107 mmol/L 11/17/2022 3:10 AM [facility] CO2 27 22 - 29 mmol/L 11/17/2022 3:10 AM [facility] Glucose 125(H) 70 - 115 mg/dL 11/17/2022 3:10 AM [facility] Calcium 8.9 8.4 - 10.2 mg/dL 11/17/2022 3:10 AM [facility] Anion Gap 12 6 - 16 11/17/2022 3:10 AM [facility] BUN/Creatinine Ratio 23 7 - 23 11/17/2022 3:10 AM [facility] Osmolality Calculated 288 270 - 300 mOsm/kg 11/17/2022 3:10 AM [facility] eGFR by CKD-EPI >90 >=90 mL/min/1.7 3 m2 11/17/2022 3:10 AM [facility] Blood BLOOD SPECIMEN / Unknown Lab Venipuncture / Unknown 11/17/2022 2:02 AM CDT 11/17/2022 2:40 AM T Good Antunez MD LAB - CHEMISTRY BIBIANA BLACKMAN [facility] Organization Address City/State/ZIP Co de Phone Number [facility] [address] [place] [phone], [facility] [phone] * (ABNORMAL) CBC W AUTO DIFFERENTIAL (11/17/2022 2:02 AM CDT) WBC 9.4 3.5 - 10.5 10? 3 /uL 11/17/2022 2:58 AM [facility] RBC 3.57(L) 3.80 - 5.20 10? 6 /uL 11/17/2022 2:58 AM [facility] Hemoglobin 10.4(L) 12.0 - 15.6 g/dL 11/17/2022 2:58 AM [facility] Hematocrit 33.4(L) 35.0 - 45.0 % 11/17/2022 2:58 AM [facility] MCV 93.6 80.7 - 98.3 fL 11/17/2022 2:58 AM [facility] MCH 29.1 26.7 - 34.0 pg 11/17/2022 2:58 AM [facility] MCHC 31.1 30.8 - 35.9 g/dL 11/17/2022 2:58 AM [facility] RDW-SD 52.4(H) 36.0 - 50.0 fL 11/17/2022 2:58 AM [facility] RDW-CV 15.9(H) 11.2 - 14.8 % 11/17/2022 2:58 AM [facility] Platelet Count 505(H) 150 - 400 10? 3 /uL 11/17/2022 2:58 AM [facility] MPV 11.0 9.4 - 12.9 fL 11/17/2022 2:58 AM [facility] nRBC Absolute 0.00 0 10? 3 /uL 11/17/2022 2:58 AM [facility] nRBC Auto 0.0 0 /100 WBC 11/17/2022 2:58 AM [facility] Neutrophils % 48.8 35.0 - 70.0 % 11/17/2022 2:58 AM [facility] Lymphocytes % 36.2 20.0 - 43.0 % 11/17/2022 2:58 AM [facility] Monocytes % 10.2 5.0 - 13.0 % 11/17/2022 2:58 AM [facility] Eosinophils % 3.1 0.0 - 6.0 % 11/17/2022 2:58 AM [facility] Basophil % 0.4 0.0 - 2.0 % 11/17/2022 2:58 AM [facility] Neutrophils Absolute 4.59 1.60 - 7.00 10? 3 /uL 11/17/2022 2:58 AM [facility] Lymphocyte Absolute 3.41 1.10 - 3.90 10? 3 /uL 11/17/2022 2:58 AM [facility] Monocytes Absolute 0.96 0.26 - 1.07 10? 3 /uL 11/17/2022 2:58 AM [facility] Eosinophils Absolute 0.29 0.00 - 0.47 10? 3 /uL 11/17/2022 2:58 AM [facility] Basophils Absolute 0.04 0.00 - 0.08 10? 3 /uL 11/17/2022 2:58 AM [facility] Immature Granulocytes % 1.3(H) 0.0 - 1.0 % 11/17/2022 2:58 AM [facility] Immature Granulocytes Absolute 0.12 11/17/2022 2:58 AM CDT [facility] Blood BLOOD SPECIMEN / Unknown Lab Venipuncture / Unknown 11/17/2022 2:02 AM CDT 11/17/2022 2:39 AM CDT Good Antunez MD LAB - HEMATOLOGY ORD ERABLES Performing Organization Address [facility] Co de Phone Number [address] [address], [facility] [phone] * PTT [facility] (11/17/2022 2:02 AM CDT) APTT 34.4 23.0 - 38.4 Seconds 11/17/2022 3:05 AM CDT [facility] Comment:Suggested therapeuti c range for full dose I.V. unfractionated heparin therapy for venous thromboembolism is 71 to 109 seconds. Blood BLOOD SPECIMEN / Unknown Lab Venipuncture / Unknown 11/17/2022 2:02 AM CDT 11/17/2022 2:39 AM CDT Good Antunez MD LAB - COAGULATION OR DERABLES Performing Organization Address [facility] Co de Phone Number [address] [address], [facility] [phone] * PT-INR [facility] (11/17/2022 2:02 AM CDT) PT 14.4 12.1 - 14.8 Seconds 11/17/2022 3:05 AM T [facility] INR 1.1 See Comment 11/17/2022 3:05 AM CDT [facility] Comment:The suggested therap eutic range for standard coumadin (warfarin) therapy is an INR of 2.0-3.0. For high-risk patients (Mechanical Mitral Valve Prosthesis, etc.), the suggested prophylactic therapeutic range is an INR of 2.5-3.5. Blood BLOOD SPECIMEN / Unknown Lab Venipuncture / Unknown 11/17/2022 2:02 AM CDT 11/17/2022 2:39 AM CDT Emir Vail MD LAB - COAGULATION OR DERABLES [id number] [place] [address], [facility] [phone] * CT ABDOMEN PELVIS W CONTRAST (11/16/2022 [...] > Dictated by Abdifatah Jean MD (residential installer). I, Alexx Lopez have personally reviewed and interpreted this examination/study. > Interpreting Provider: Alexx Lopez on 11/17/2022 11:31 AM Narrative 11/17/2022 11:31 AM CDT PROCEDURE: ??CT ABDOMEN PELVIS W CONTRAST, DATE/TIME OF EXAM: ??11/16/2022 4:32 PM, LOCATION ??[facility] INDICATION: I33.0: Aortic valve vegetation ADDITIONAL [...] CONTRAST, DATE/TIME OF EXAM: 34:32 PM, LOCATION [facility] INDICATION: I33.0: Aortic valve vegetation ADDITIONAL [...] > Dictated by Abdifatah Jean MD (residential installer). I, Alexx Lopez have personally reviewed and interpreted this examination/study. > Interpreting Provider: Alexx Lopez on 11/17/2022 11:31 AM Good Antunez MD CT ORDERABLES * (ABNORMAL) DIFFERENTIAL MANUAL (11/16/2022 2:17 AM CDT) WBC (corrected for NRBC) 7.3 10? 3 /uL 11/16/2022 4:29 AM [facility] Total Cell Count 100 11/17/19 23 4:29 AM [facility] Neutrophils Absolute Manual 4.60 1.60 - 7.00 10? 3 /uL 11/16/2022 4:29 AM [facility] Comment:(BANDS+SEGS) x WBC = NEUT # (ANC) Lymphocyte Absolute Manual 1.75 1.10 - 3.90 10? 3 /uL 11/16/2022 4:29 AM [facility] Monocytes Absolute Manual 0.80 0.26 - 1.07 10? 3 /uL 11/16/2022 4:29 AM [facility] Eosinophils Absolute Manual 0.15 0.00 - 0.47 10? 3 /uL 11/16/2022 4:29 AM [facility] Band % Manual 1 0 - 10 % 11/16/2022 4:29 AM [facility] Neutrophil % Manual 62 35 - 70 % 11/16/2022 4:29 AM T [facility] Lymphocyte % Manual 24 20 - 43 % 11/16/2022 4:29 AM [facility] Monocytes % Manual 11 5 - 13 % 11/16/2022 4:29 AM [facility] Eosinophils % Manual 2 0 - 6 % 11/16/2022 4:29 AM [facility] Platelet Estimate Adequate Adequate 11/16/2022 4:29 AM [facility] Anisocytosis Occasional( A) None 11/16/2022 4:29 AM [facility] Polychromasia Few(A) None 11/16/2022 4:29 AM [facility] Ovalocytes Occasional( A) None 11/16/2022 4:29 AM [facility] Wh[place]ore Cells Occasional( A) None 11/16/2022 4:29 AM [facility] Smudge Cells Rare(A) None 11/16/2022 4:29 AM [facility] Blood BLOOD SPECIMEN / Unknown Lab Venipuncture / Unknown 11/16/2022 2:17 AM CDT 11/16/2022 3:01 AM CDT Good Antunez MD LAB - HEMATOLOGY ORD ERABLES [address] [address], [facility] [phone] * PHOSPHORUS BLOOD (11/16/2022 2:17 AM CDT) Phosphorus 3.5 2.9 - 5.1 mg/dL 11/16/2022 3:30 AM CDT [facility] Blood BLOOD SPECIMEN / Unknown Lab Venipuncture / Unknown 11/16/2022 2:17 AM CDT 11/16/2022 3:02 AM CDT Good Antunez MD LAB - CHEMISTRY ORDDanyelle BLACKMAN Performing Organization Address City/[facility]/ZIP Co de Phone Number [address] [address], [place] [phone] * MAGNESIUM BLOOD (11/16/2022 2:17 AM CDT) Magnesium 2.4 1.6 - 2.6 mg/dL 11/16/2022 3:30 AM [facility] Blood BLOOD SPECIMEN / Unknown Lab Venipuncture / Unknown 11/16/2022 2:17 AM CDT 11/16/2022 3:02 AM CDT Good Antunez MD LAB - CHEMISTRY BIBIANA BLACKMAN [facility] Organization Address City/State/ZIP Co de Phone Number [facility] [address] [place] [address], [facility] [phone] * (ABNORMAL) BASIC METABOLIC PANEL (CALCIUM TOTAL) (11/16/2022 2:17 AM CDT) BUN 13 7 - 26 mg/dL 11/16/2022 3:30 AM [facility] Creatinine 0.57 0.56 - 0.96 mg/dL 11/16/2022 3:30 AM [facility] Sodium 139 136 - 145 mmol/L 11/16/2022 3:30 AM [facility] Potassium 4.0 3.5 - 4.5 mmol/L 11/16/2022 3:30 AM [facility] Chloride 104 98 - 107 mmol/L 11/16/2022 3:30 AM [facility] CO2 27 22 - 29 mmol/L 11/16/2022 3:30 AM [facility] Glucose 129(H) 70 - 115 mg/dL 11/16/2022 3:30 AM [facility] Calcium 8.8 8.4 - 10.2 mg/dL 11/16/2022 3:30 AM [facility] Anion Gap 12 8 - 18 11/16/2022 3:30 AM [facility] BUN/Creatinine Ratio 23 7 - 23 11/16/2022 3:30 AM [facility] Osmolality Calculated 290 270 - 300 mOsm/kg 11/16/2022 3:30 AM [facility] eGFR by CKD-EPI >90 >=90 mL/min/1.7 3 m2 11/16/2022 3:30 AM [facility] Blood BLOOD SPECIMEN / Unknown Lab Venipuncture / Unknown 11/16/2022 2:17 AM CDT 11/16/2022 3:02 AM CDT Good Antunez MD LAB - CHEMISTRY BIBIANA BLACKMAN [facility] Organization Address City/State/ZIP Co de Phone Number [facility] [address] [place] [address], [facility] [phone] * (ABNORMAL) CBC W AUTO DIFFERENTIAL (11/16/2022 2:17 AM CDT) WBC 7.3 3.5 - 10.5 10? 3 /uL 11/16/2022 3:12 AM [facility] RBC 3.49(L) 3.80 - 5.20 10? 6 /uL 11/16/2022 3:12 AM [facility] Hemoglobin 10.1(L) 12.0 - 15.6 g/dL 11/16/2022 3:12 AM [facility] Hematocrit 32.6(L) 35.0 - 45.0 % 11/16/2022 3:12 AM [facility] MCV 93.4 80.7 - 98.3 fL 11/16/2022 3:12 AM [facility] MCH 28.9 26.7 - 34.0 pg 11/16/2022 3:12 AM [facility] MCHC 31.0 30.8 - 35.9 g/dL 11/16/2022 3:12 AM [facility] RDW-SD 51.5(H) 36.0 - 50.0 fL 11/16/2022 3:12 AM [facility] RDW-CV 15.6(H) 11.2 - 14.8 % 11/16/2022 3:12 AM [facility] Platelet Count 446(H) 150 - 400 10? 3 /uL 11/16/2022 3:12 AM [facility] MPV 10.9 9.4 - 12.9 fL 11/16/2022 3:12 AM CDT [facility] nRBC Absolute 0.00 0 10? 3 /uL 11/16/2022 3:12 AM CDT [facility] nRBC Auto 0.0 0 /100 WBC 11/16/2022 3:12 AM T [facility] Blood BLOOD SPECIMEN / Unknown Lab Venipuncture / Unknown 11/16/2022 2:17 AM CDT 11/16/2022 3:01 AM CDT Good Antunez MD LAB - HEMATOLOGY ORD ERABLES Performing Organization Address City/[facility]/ZIP Co de Phone Number [facility] [address] [place] [address], [facility] [phone] * PTT [facility] (11/16/2022 2:17 AM CDT) APTT 26.0 23.0 - 38.4 Seconds 11/16/2022 3:23 AM T [facility] Comment:Suggested therapeuti c range for full dose I.V. unfractionated heparin therapy for venous thromboembolism is 71 to 109 seconds. Blood BLOOD SPECIMEN / Unknown Lab Venipuncture / Unknown 11/16/2022 2:17 AM CDT 11/16/2022 3:02 AM CDT Good Antunez MD LAB - COAGULATION OR DERABLES Performing Organization Address [facility]/ZIP Co de Phone Number [facility] [address] [place] [address], [place] [phone] * PT-INR [facility] (11/16/2022 2:17 AM CDT) PT 13.9 12.1 - 14.8 Seconds 11/16/2022 3:23 AM CDT [facility] INR 1.1 See Comment 11/16/2022 3:23 AM T [facility] Comment:The suggested therap eutic range for standard coumadin (warfarin) therapy is an INR of 2.0-3.0. For high-risk patients (Mechanical Mitral Valve Prosthesis, etc.), the suggested prophylactic therapeutic range is an INR of 2.5-3.5. Blood BLOOD SPECIMEN / Unknown Lab Venipuncture / Unknown 11/16/2022 2:17 AM CDT 11/16/2022 3:02 AM CDT Emir Vail MD LAB - COAGULATION OR DERABLES Performing Organization Address [facility]/ZIP Co de Phone Number [address] [address], [facility] [phone] * GRAM STAIN (LAB ORDERED) (11/15/2022 12:27 PM CDT) Gram Stain No polymorphonuclear cells 11/15/2022 4:45 PM CDT [facility] Gram Stain No organisms seen 023 4:45 PM CDT [facility] Microbiology Collection / Unknown 11/15/2022 12:27 PM CDT 11/15/2022 12:27 PM CDT Good Antunez MD LAB - MICROBIOLOGY O DIONI Performing Organization Address [facility]/ZIP Co de Phone Number [address] [address], [place] [phone] * CULTURE CSF+GRAM STAIN (11/15/2022 12:25 PM CDT) Culture No growth ROSELIA 11/22/2022 4:18 AM CDT [facility] Gram Stain No polymorphonuclear cells 11/22/2022 4:18 AM CDT [facility] Gram Stain No organisms seen 023 4:18 AM CDT [facility] Cerebral spinal fluid CEREBROSPINAL FLUID SPECIMEN / Unknown Collection / Unknown 11/15/2022 12:25 PM CDT 11/15/2022 12:25 PM CDT Good Antunez MD LAB - MICROBIOLOGY O DIONI Performing Organization Address City/[facility]/ZIP Co de Phone Number [facility] [address] [place] [address], [place] [phone] * HOLD SPECIMEN CSF (11/15/2022 12:25 PM CDT) Specimen Hold 11/15/2022 1:32 PM CDT [facility] Comment:The Hold Sample has been received in the lab and will be held for 30 days. Cerebral spinal fluid CEREBROSPINAL FLUID SPECIMEN / Unknown Collection / Unknown 11/15/2022 12:25 PM CDT 11/15/2022 12:25 PM CDT Good Antunez MD LAB - BODY FLUID ORD ERABLES [facility] [address] [place] [address], [facility] [phone] * MENINGITIS ENCEPHALITIS PCR PANEL CSF (11/15/2022 12:25 PM CDT) Listeria monocytogenes PCR Not Detected 11/17/2022 7:00 AM CDT [facility] ([facility]) Escherichia coli K1 PCR Not Detected 11/17/2022 7:00 AM CDT [facility] ([facility]) Haemophilus influenzae PCR Not Detected 11/17/2022 7:00 AM CDT [facility] ([facility]) Neisseria meningitidis PCR Not Detected 11/17/2022 7:00 AM CDT [facility] ([facility]) Streptococcus agalactiae PCR Not Detected 11/17/2022 7:00 AM CDT [facility] ([facility]) Streptococcus pneumoniae PCR Not Detected 11/17/2022 7:00 AM CDT [facility] ([facility]) Cytomegalovirus PCR Not Detected 11/17/2022 7:00 AM CDT [facility] ([facility]) Enterovirus PCR Not Detected 11/17/2022 7:00 AM CDT [facility] ([facility]) Herpes Simplex Virus 1 PCR Not Detected 11/17/2022 7:00 AM CDT [facility] ([facility]) Herpes Simplex Virus 2 PCR Not Detected 11/17/2022 7:00 AM CDT [facility] ([facility]) Human Herpesvirus 6 PCR Not Detected 11/17/2022 7:00 AM CDT [facility] ([facility]) Human parechovirus PCR Not Detected 11/17/2022 7:00 AM CDT [facility] ([facility]) Varicella zoster virus PCR Not Detected 11/17/2022 7:00 AM CDT [facility] ([facility]) Cryptococcus neoformans/gattii PCR Not Detected 11/17/2022 7:00 AM CDT [facility] ([facility]) Comment: INTERPRETIVE INFORMATION: Meningitis Encephalitis Panel [...] factors and other laboratory information. Performed By: [place] [address] [employer] Supervisor: Boo Bond MD, PhD CLIA Number: [id number] Cerebral spinal fluid CEREBROSPINAL FLUID SPECIMEN / Unknown Collection / Unknown 11/15/2022 12:25 PM CDT 11/15/2022 12:25 PM CDT Good Antunez MD LAB - MICROBIOLOGY O RDERABLES [facility]) [address] [place] [address], [facility] * CELL COUNT W DIFFERENTIAL CSF (11/15/2022 12:25 PM CDT) Color Fluid Colorless Colorless, Straw 11/15/2022 12:42 PM CDT [facility] Clarity Fluid Clear Clear 11/15/2022 12:42 PM CDT [facility] Volume Fluid 3.5 mL 11/15/2022 12:42 PM T [facility] WBC Calculation Fluid 1 0 - 5 x10e6/L 11/15/2022 12:42 PM [facility] RBC Calculation 4 x10e6/L 12:42 PM [facility] Xanthochromia Fluid Negative Negative 11/15/2022 12:42 PM CDT [facility] Differential 11/15/2022 12:42 PM T [facility] Comment:No differential perf ormed per procedure. Cerebral spinal fluid CEREBROSPINAL FLUID SPECIMEN / Unknown Collection / Unknown 11/15/2022 12:25 PM CDT 11/15/2022 12:25 PM CDT Narrative [facility] - 11/15/2022 12:42 PM CDT No reference ranges established for body fluid cell counts. The reference ranges provided are derived from published literature. The test results must be integrated into the clinical context for interpretation. Good Antunez MD LAB - BODY FLUID ORD ERAJESSE [address] [address], [place] [phone] * PROTEIN CSF (11/15/2022 12:25 PM CDT) Protein CSF 34 15 - 45 mg/dL 11/15/2022 1:15 PM CDT [facility] Cerebral spinal fluid CEREBROSPINAL FLUID SPECIMEN / Unknown Collection / Unknown 11/15/2022 12:25 PM CDT 11/15/2022 12:25 PM CDT Good Antunez MD LAB - BODY FLUID ORD DIMAS Performing Organization Address City/[facility]/ZIP Co de Phone Number [address] [address], [place] [phone] * GLUCOSE CSF (11/15/2022 12:25 PM CDT) Glucose CSF 57 40 - 70 mg/dL 11/15/2022 1:15 PM CDT [facility] Cerebral spinal fluid CEREBROSPINAL FLUID SPECIMEN / Unknown Collection / Unknown 11/15/2022 12:25 PM CDT 11/15/2022 12:25 PM CDT Good Antunez MD LAB - BODY FLUID ORD JINBLES [address] [address], [place] [phone] * CULTURE FUNGUS OTHER+FUNGUS SMEAR (11/15/2022 12:17 PM CDT) Culture No fungus isolated ROSELIA 12/11/2022 7:18 AM CDT [facility] Fungus Stain No yeast or hyphae seen 12/11/2022 7:18 AM CDT [facility] Microbiology CEREBROSPINAL FLUID SPECIMEN / Unknown Collection / Unknown 11/15/2022 12:17 PM CDT 11/15/2022 12:29 PM CDT Good Antunez MD LAB - MICROBIOLOGY O DIONI [facility] [address] [place] [address], [facility] [phone] * CULTURE AFB+SMEAR (11/15/2022 12:17 PM CDT) Culture No acid-fast bacillus isolated 12/25/2022 7:40 AM CDT [facility] AFB Smear No acid-fast bacilli seen 12/25/2022 7:40 AM CDT [facility] Microbiology CEREBROSPINAL FLUID SPECIMEN / Unknown Collection / Unknown 11/15/2022 12:17 PM CDT 11/15/2022 12:29 PM CDT Good Antunez MD LAB - MICROBIOLOGY O DIONI [facility] [address] [place] [address], [facility] [phone] * FL LUMBAR PUNCTURE (11/15/2022 12:10 PM CDT) Anatomical Region Laterality Modality Spine Radiographic Irene ging 11/15/2022 1:13 PM CDT Impressions 11/15/2022 2:16 PM CDT IMPRESSION: 1.Successful lumbar puncture under fluoroscopic guidance at L3-L4. > Dictated by Royer Stovall MD (residential installer). I, Oriana Suarez MD have personally reviewed and interpreted this examination/study. > Interpreting Provider: Oriana Suarez MD on 11/15/2022 2:16 PM Narrative 11/15/2022 2:16 PM CDT PROCEDURE: ??FL LUMBAR PUNCTURE, DATE/TIME OF EXAM: ??11/15/2022 1:24 PM, LOCATION ??[facility] INDICATION: R50.9: Fever, unspecified fever cause [...] DATE/TIME OF EXAM: 11/15/2022 1:24 PM, LOCATION [facility] INDICATION: R50.9: Fever, unspecified fever cause [...] > Dictated by Royer Stovall MD (residential installer). I, Oriana Suarez MD have personally reviewed and interpreted this examination/study. > Interpreting Provider: Oriana Suarez MD on 11/15/2022 2:16 PM Good Antunez MD FLUOROSCOPY ORDERABL ES * (ABNORMAL) EOSINOPHIL URINE SMEAR (11/15/2022 9:57 AM CDT) Pathologist [facility] [place] Eosin Stain Urine Rare(A) None 11/15/2022 12:46 PM CDT [facility] Urine URINE SPECIMEN OBTAINED BY CLEAN CATCH PROCEDURE / Unknown Collection / Unknown 11/15/2022 9:57 AM CDT 11/15/2022 10:00 AM CDT Good Antunez MD LAB - URINE CHEMISTR Y ORDERABLES [address] [address], [facility] [phone] * (ABNORMAL) HEPATIC FUNCTION PANEL (11/15/2022 2:12 AM CDT) Pathologist [facility] [place] Protein Total 6.5 6.0 - 8.3 g/dL 023 3:40 AM [facility] Albumin 2.5(L) 3.4 - 5.0 g/dL 11/15/2022 3:40 AM [facility] Bilirubin Total 0.3 0.2 - 1.2 mg/dL 08/2022 3:40 AM [facility] Bilirubin Conjugated 0.1 0.1 - 0.5 mg/dL 11/15/2022 3:40 AM [facility] Bilirubin Unconjugated 0.2 Unconjugated Bilirubin is a calculated value: Reference ranges have not been established. mg/dL 11/15/2022 3:40 AM [facility] Alkaline Phosphatase 80 40 - 150 U/L 11/15/2022 3:40 AM [facility] ALT 237(H) 5 - 55 U/L 11/15/2022 3:40 AM [facility] AST 104(H) 5 - 34 U/L 11/15/2022 3:40 AM [facility] Albumin/Globulin Ratio 0.6(L) 1.1 - 2.3 11/15/2022 3:40 AM [facility] Blood BLOOD SPECIMEN / Unknown Lab Venipuncture / Unknown 11/15/2022 2:12 AM CDT 11/15/2022 3:07 AM CDT Good Antunez MD LAB - CHEMISTRY BIBIANA BLACKMAN Performing Organization Address City/State/[facility] Co de Phone Number [facility] [address] [place] [address], [facility] [phone] * PHOSPHORUS BLOOD (11/15/2022 2:12 AM CDT) Phosphorus 3.0 2.9 - 5.1 mg/dL 11/15/2022 3:38 AM [facility] Blood BLOOD SPECIMEN / Unknown Lab Venipuncture / Unknown 11/15/2022 2:12 AM CDT 11/15/2022 3:07 AM CDT Good Antunez MD LAB - CHEMISTRY BIBIANA BLACKMAN [facility] [address] [place] [address], [place] [phone] * MAGNESIUM BLOOD (11/15/2022 2:12 AM CDT) [facility] Magnesium 2.0 1.6 - 2.6 mg/dL 11/15/2022 3:38 AM T [facility] Blood BLOOD SPECIMEN / Unknown Lab Venipuncture / Unknown 11/15/2022 2:12 AM CDT 11/15/2022 3:07 AM CDT Good Antunez MD LAB - CHEMISTRY BIBIANA BLACKMAN Performing Organization Address City/[facility]/ZIP Co de Phone Number [facility] [address] [place] [address], [place] [phone] * (ABNORMAL) BASIC METABOLIC PANEL (CALCIUM TOTAL) (11/15/2022 2:12 AM CDT) [facility] BUN 12 7 - 26 mg/dL 11/15/2022 3:38 AM [facility] Creatinine 0.50(L) 0.56 - 0.96 mg/dL 11/15/2022 3:38 AM [facility] Sodium 137 136 - 145 mmol/L 11/15/2022 3:38 AM [facility] Potassium 4.0 3.5 - 4.5 mmol/L 11/15/2022 3:38 AM [facility] Chloride 103 98 - 107 mmol/L 11/15/2022 3:38 AM [facility] CO2 26 22 - 29 mmol/L 11/15/2022 3:38 AM [facility] Glucose 115 70 - 115 mg/dL 11/15/2022 3:38 AM [facility] Calcium 8.6 8.4 - 10.2 mg/dL 11/15/2022 3:38 AM [facility] Anion Gap 12 8 - 18 11/15/2022 3:38 AM [facility] BUN/Creatinine Ratio 24(H) 7 - 23 11/15/2022 3:38 AM [facility] Osmolality Calculated 285 270 - 300 mOsm/kg 11/15/2022 3:38 AM [facility] eGFR by CKD-EPI >90 >=90 mL/min/1.7 3 m2 11/15/2022 3:38 AM [facility] Blood BLOOD SPECIMEN / Unknown Lab Venipuncture / Unknown 11/15/2022 2:12 AM CDT 11/15/2022 3:07 AM T Good Antunez MD LAB - CHEMISTRY BIBIANA BLACKMAN [facility] Organization Address City/State/ZIP Co de Phone Number [facility] [address] [place] [address], [facility] [phone] * (ABNORMAL) CBC W AUTO DIFFERENTIAL (11/15/2022 2:12 AM T) WBC 5.5 3.5 - 10.5 10? 3 /uL 11/15/2022 3:13 AM [facility] RBC 3.51(L) 3.80 - 5.20 10? 6 /uL 11/15/2022 3:13 AM [facility] Hemoglobin 10.0(L) 12.0 - 15.6 g/dL 11/15/2022 3:13 AM [facility] Hematocrit 32.6(L) 35.0 - 45.0 % 11/15/2022 3:13 AM [facility] MCV 92.9 80.7 - 98.3 fL 11/15/2022 3:13 AM [facility] MCH 28.5 26.7 - 34.0 pg 11/15/2022 3:13 AM [facility] MCHC 30.7(L) 30.8 - 35.9 g/dL 11/15/2022 3:13 AM [facility] RDW-SD 50.4(H) 36.0 - 50.0 fL 11/15/2022 3:13 AM [facility] RDW-CV 15.2(H) 11.2 - 14.8 % 11/15/2022 3:13 AM [facility] Platelet Count 404(H) 150 - 400 10? 3 /uL 11/15/2022 3:13 AM [facility] MPV 11.1 9.4 - 12.9 fL 11/15/2022 3:13 AM [facility] nRBC Absolute 0.00 0 10? 3 /uL 11/15/2022 3:13 AM [facility] nRBC Auto 0.0 0 /100 WBC 11/15/2022 3:13 AM [facility] Neutrophils % 44.1 35.0 - 70.0 % 11/15/2022 3:13 AM [facility] Lymphocytes % 35.4 20.0 - 43.0 % 11/15/2022 3:13 AM [facility] Monocytes % 8.9 5.0 - 13.0 % 11/15/2022 3:13 AM [facility] Eosinophils % 10.3(H) 0.0 - 6.0 % 11/15/2022 3:13 AM [facility] Basophil % 0.4 0.0 - 2.0 % 11/15/2022 3:13 AM [facility] Neutrophils Absolute 2.43 1.60 - 7.00 10? 3 /uL 11/15/2022 3:13 AM [facility] Lymphocyte Absolute 1.95 1.10 - 3.90 10? 3 /uL 11/15/2022 3:13 AM [facility] Monocytes Absolute 0.49 0.26 - 1.07 10? 3 /uL 11/15/2022 3:13 AM [facility] Eosinophils Absolute 0.57(H) 0.00 - 0.47 10? 3 /uL 11/15/2022 3:13 AM [facility] Basophils Absolute 0.02 0.00 - 0.08 10? 3 /uL 11/15/2022 3:13 AM [facility] Immature Granulocytes % 0.9 0.0 - 1.0 % 11/15/2022 3:13 AM [facility] Immature Granulocytes Absolute 0.05 11/15/2022 3:13 AM [facility] Blood BLOOD SPECIMEN / Unknown Lab Venipuncture / Unknown 11/15/2022 2:12 AM CDT 11/15/2022 3:07 AM CDT Good Antunez MD LAB - HEMATOLOGY ORD ERABLES Performing Organization Address [facility] Co de Phone Number [address] [address], [facility] [phone] * PTT [facility] (11/15/2022 2:12 AM CDT) APTT 28.2 23.0 - 38.4 Seconds 11/15/2022 3:34 AM CDT [facility] Comment:Suggested therapeuti c range for full dose I.V. unfractionated heparin therapy for venous thromboembolism is 71 to 109 seconds. Blood BLOOD SPECIMEN / Unknown Lab Venipuncture / Unknown 11/15/2022 2:12 AM CDT 11/15/2022 3:08 AM CDT Good Antunez MD LAB - COAGULATION OR DERABLES Performing Organization Address [facility] Co de Phone Number [address] [address], [facility] [phone] * PT-INR [facility] (11/15/2022 2:12 AM CDT) PT 14.3 12.1 - 14.8 Seconds 11/15/2022 3:34 AM CDT [facility] INR 1.1 See Comment 11/15/2022 3:34 AM CDT [facility] Comment:The suggested therap eutic range [...] OR DERABLES Performing Organization Address [facility]/ZIP Co de Phone Number [address] [place] [address], [facility] [phone] * US ABDOMEN LTD W COMP DOPPLER (11/14/2022 9:24 AM CDT) Anatomical Region Laterality Modality Abdomen Ultrasound 11/14/2022 9:18 AM CDT Impressions 11/14/2022 9:54 AM CDT IMPRESSION: 1.No discrete hepatic lesion or intrahepatic biliary ductal dilatation. 2.Patent hepatic vasculature. Borderline low velocity the main portal vein measuring 18 cm/s. 3.Status post cholecystectomy. > Dictated by Miranda Bowen MD (residential installer). > Dictated by Miranda Bowen ([employer]) 11/14/2022 9:18 AM IHEATHER MD have personally [...] proper hepatic artery measures 0.74. Procedure Note Koen, Heather, MD - 11/14/2022 PROCEDURE: US ABDOMEN LTD [...] > Dictated by Miranda Bowen MD (residential installer). > Dictated by Miranda Bowen ([employer]) 11/14/2022 9:18 AM IHEATHER MD have personally reviewed and interpreted this examination/study. > Interpreting Provider: HEATHER FREGOSO MD on 11/14/2022 9:54 AM Good Antunez MD US ORDERABLES * (ABNORMAL) HEPATIC FUNCTION PANEL (11/14/2022 2:39 AM CDT) Protein Total 6.5 6.0 - 8.3 g/dL 023 3:57 AM CDT [facility] Albumin 2.4(L) 3.4 - 5.0 g/dL 11/14/2022 3:57 AM [facility] Bilirubin Total 0.3 0.2 - 1.2 mg/dL 07/2022 3:57 AM [facility] Bilirubin Conjugated 0.1 0.1 - 0.5 mg/dL 11/14/2022 3:57 AM [facility] Bilirubin Unconjugated 0.2 Unconjugated Bilirubin is a calculated value: Reference ranges have not been established. mg/dL 11/14/2022 3:57 AM [facility] Alkaline Phosphatase 78 40 - 150 U/L 11/14/2022 3:57 AM [facility] ALT 278(H) 5 - 55 U/L 11/14/2022 3:57 AM [facility] AST 158(H) 5 - 34 U/L 11/14/2022 3:57 AM [facility] Albumin/Globulin Ratio 0.6(L) 1.1 - 2.3 11/14/2022 3:57 AM [facility] Blood BLOOD SPECIMEN / Unknown Lab Venipuncture / Unknown 11/14/2022 2:39 AM CDT 11/14/2022 3:16 AM CDT Good Antunez MD LAB - CHEMISTRY BIBIANA BLACKMAN [address] [address], [facility] [phone] * PHOSPHORUS BLOOD (11/14/2022 2:39 AM CDT) Phosphorus 3.5 2.9 - 5.1 mg/dL 11/14/2022 3:54 AM T [facility] Blood BLOOD SPECIMEN / Unknown Lab Venipuncture / Unknown 11/14/2022 2:39 AM CDT 11/14/2022 3:16 AM CDT Good Antunez MD LAB - CHEMISTRY ORDDanyelle BLACKMAN [facility] [address] [place] [address], [facility] [phone] * MAGNESIUM BLOOD (11/14/2022 2:39 AM CDT) Pathologist [facility] Magnesium 2.0 1.6 - 2.6 mg/dL 11/14/2022 3:54 AM [facility] Blood BLOOD SPECIMEN / Unknown Lab Venipuncture / Unknown 11/14/2022 2:39 AM CDT 11/14/2022 3:16 AM CDT Good Antunez MD LAB - CHEMISTRY BIBIANA BLACKMAN [facility] Organization Address City/State/ZIP Co de Phone Number [facility] [address] [place] [address], [facility] [phone] * (ABNORMAL) BASIC METABOLIC PANEL (CALCIUM TOTAL) (11/14/2022 2:39 AM CDT) Pathologist [facility] [place] BUN 11 7 - 26 mg/dL 11/14/2022 3:54 AM [facility] Creatinine 0.51(L) 0.56 - 0.96 mg/dL 11/14/2022 3:54 AM [facility] Sodium 140 136 - 145 mmol/L 11/14/2022 3:54 AM [facility] Potassium 3.9 3.5 - 4.5 mmol/L 11/14/2022 3:54 AM [facility] Chloride 104 98 - 107 mmol/L 11/14/2022 3:54 AM [facility] CO2 25 22 - 29 mmol/L 11/14/2022 3:54 AM [facility] Glucose 109 70 - 115 mg/dL 11/14/2022 3:54 AM [facility] Calcium 8.6 8.4 - 10.2 mg/dL 11/14/2022 3:54 AM [facility] Anion Gap 15 8 - 18 11/14/2022 3:54 AM [facility] BUN/Creatinine Ratio 22 7 - 23 11/14/2022 3:54 AM [facility] Osmolality Calculated 290 270 - 300 mOsm/kg 11/14/2022 3:54 AM [facility] eGFR by CKD-EPI >90 >=90 mL/min/1.7 3 m2 11/14/2022 3:54 AM [facility] Blood BLOOD SPECIMEN / Unknown Lab Venipuncture / Unknown 11/14/2022 2:39 AM CDT 11/14/2022 3:16 AM CDT Good Antunez MD LAB - CHEMISTRY BIBIANA BLACKMAN [facility] Organization Address City/State/ZIP Co de Phone Number [facility] [address] [place] [address], [facility] [phone] * (ABNORMAL) CBC W AUTO DIFFERENTIAL (11/14/2022 2:39 AM CDT) WBC 4.7 3.5 - 10.5 10? 3 /uL 11/14/2022 3:43 AM [facility] RBC 3.47(L) 3.80 - 5.20 10? 6 /uL 11/14/2022 3:43 AM [facility] Hemoglobin 9.9(L) 12.0 - 15.6 g/dL 11/14/2022 3:43 AM [facility] Hematocrit 32.8(L) 35.0 - 45.0 % 11/14/2022 3:43 AM [facility] MCV 94.5 80.7 - 98.3 fL 11/14/2022 3:43 AM [facility] MCH 28.5 26.7 - 34.0 pg 11/14/2022 3:43 AM [facility] MCHC 30.2(L) 30.8 - 35.9 g/dL 11/14/2022 3:43 AM [facility] RDW-SD 51.5(H) 36.0 - 50.0 fL 11/14/2022 3:43 AM [facility] RDW-CV 15.0(H) 11.2 - 14.8 % 11/14/2022 3:43 AM [facility] Platelet Count 364 150 - 400 10? 3 /uL 11/14/2022 3:43 AM [facility] MPV 11.2 9.4 - 12.9 fL 11/14/2022 3:43 AM [facility] nRBC Absolute 0.00 0 10? 3 /uL 11/14/2022 3:43 AM [facility] nRBC Auto 0.0 0 /100 WBC 11/14/2022 3:43 AM [facility] Neutrophils % 32.3(L) 35.0 - 70.0 % 11/14/2022 3:43 AM [facility] Lymphocytes % 41.5 20.0 - 43.0 % 11/14/2022 3:43 AM [facility] Monocytes % 10.5 5.0 - 13.0 % 11/14/2022 3:43 AM [facility] Eosinophils % 13.8(H) 0.0 - 6.0 % 11/14/2022 3:43 AM [facility] Basophil % 0.6 0.0 - 2.0 % 11/14/2022 3:43 AM [facility] Neutrophils Absolute 1.50(L) 1.60 - 7.00 10? 3 /uL 11/14/2022 3:43 AM [facility] Lymphocyte Absolute 1.93 1.10 - 3.90 10? 3 /uL 11/14/2022 3:43 AM [facility] Monocytes Absolute 0.49 0.26 - 1.07 10? 3 /uL 11/14/2022 3:43 AM [facility] Eosinophils Absolute 0.64(H) 0.00 - 0.47 10? 3 /uL 11/14/2022 3:43 AM [facility] Basophils Absolute 0.03 0.00 - 0.08 10? 3 /uL 11/14/2022 3:43 AM [facility] Immature Granulocytes % 1.3(H) 0.0 - 1.0 % 11/14/2022 3:43 AM [facility] Immature Granulocytes Absolute 0.06 11/14/2022 3:43 AM [facility] Blood BLOOD SPECIMEN / Unknown Lab Venipuncture / Unknown 11/14/2022 2:39 AM CDT 11/14/2022 3:19 AM CDT Good Antunez MD LAB - HEMATOLOGY ORD ERABLES Performing Organization Address [facility] Co de Phone Number [address] [address], [facility] [phone] * (ABNORMAL) PTT [facility] (11/14/2022 2:39 AM CDT) APTT 45.9(H) 23.0 - 38.4 Seconds 11/14/2022 3:39 AM CDT [facility] Comment:Suggested therapeuti c range for full dose I.V. unfractionated heparin therapy for venous thromboembolism is 71 to 109 seconds. Blood BLOOD SPECIMEN / Unknown Lab Venipuncture / Unknown 11/14/2022 2:39 AM CDT 11/14/2022 3:12 AM CDT Good Antunez MD LAB - COAGULATION OR DERABLES Performing Organization Address [facility] de Phone Number [address] [address], [facility] [phone] * (ABNORMAL) PT-INR [facility] (11/14/2022 2:39 AM CDT) PT 15.9(H) 12.1 - 14.8 Seconds 11/14/2022 3:39 AM CDT [facility] INR 1.3 See Comment 11/14/2022 3:39 AM CDT [facility] Comment:The suggested therap eutic range [...] OR DERABLES Performing Organization Address [facility] Co de Phone Number [address] [address] [place] [address], [place] [phone] * PREPARE FFP UNIT(S), 1 Units (11/14/2022 1:17 AM CDT) Unit Description N/A [facility] B[facility]OD [facility]ANK [facility] Blood Bank BLOOD SPECIMEN / Unknown 11/10/2022 11:51 PM CDT Good Antunez MD LAB - BLOOD BANK ORD ERABLES [facility] [address] [place] [address], [place] [phone] * PREPARE (CROSSMATCH) RBC UNIT(S), 2 Units (11/14/2022 1:17 AM CDT) Unit Description AS1 LR PRBC [facility] B[facility] LAB Unit ABO B [facility] Unit Rh POS [facility] Product Number R02 [facility] B LOOD BANK LAB Unit Donor # [id number] [facility] Unit Status released [facility] BLOO D BANK LAB Product Code [id number] [facility] BLO OD BANK LAB Blood Type Barcode 7300 [facility] B[facility] LAB Expiration Date S BLOOD BANK LAB Unit Description AS1 LR PRBC [facility] B[facility] LAB Unit ABO B [facility] B[facility] Unit Rh POS [facility] BLO[facility] Product Number R02 [facility] B LOOD BANK LAB Unit Donor # [id number] [facility] BLOOD [facility] LAB Unit Status released [facility] BLOO D BANK LAB Product Code [id number] [facility] BLO OD BANK LAB Blood Type Barcode 7300 [facility] BLOOD [facility]ANK LAB Expiration Date S BLOOD BANK LAB Blood Bank BLOOD SPECIMEN / Unknown 11/10/2022 11:51 PM CDT Good Antunez MD LAB - BLOOD BANK ORD ERABLES [facility] B[facility] [address] [place] [address], [place] [phone] * CYTOMEGALOVIRUS (CMV) QUANTITATIVE PLASMA (11/13/2022 3:34 PM CDT) [facility] CMV Quant by PCR, Interp Not detected Not detected 11/14/2022 12:40 PM CDT [facility] Blood BLOOD SPECIMEN / Unknown Lab Venipuncture / Unknown 11/13/2022 3:34 PM CDT 11/13/2022 3:53 PM CDT Narrative [facility] - 11/14/2022 12:40 PM CDT [...] MD LAB - CHEMISTRY BIBIANA BLACKMAN [facility] Organization Address City/State/ZIP Co de Phone Number [facility] [address] [place] [address], [facility] [phone] * MARY JO-HERBERT VIRUS QUANT BLOOD STL (11/13/2022 3:34 PM CDT) [facility] EBV Quant by PCR, Interp Not detected Not detected 11/14/2022 1:40 PM CDT [facility] Specimen Type Plasma 11/14/2022 1:40 PM CDT [facility] Blood BLOOD SPECIMEN / Unknown Lab Venipuncture / Unknown 11/13/2022 3:34 PM CDT 11/13/2022 3:53 PM CDT Narrative [facility] - 11/14/2022 1:40 PM CDT [...] developed and its performance characteristics determined by [facility]. ??It has not been cleared or [...] Antunez MD LAB - CHEMISTRY [place] BLACKMAN [facility] [address] [place] [address], [facility] [phone] * CK BLOOD (11/13/2022 3:34 PM CDT) CK Total 57 30 - 200 U/L 11/13/2022 4:17 PM CDT [facility] Blood BLOOD SPECIMEN / Unknown Lab Venipuncture / Unknown 11/13/2022 3:34 PM CDT 11/13/2022 3:52 PM CDT Good Antunez MD LAB - CHEMISTRY [place] BLACK[facility] [address] [place] [address], [place] [phone] * (ABNORMAL) GLUCOSE - POINT OF CARE (11/13/2022 4:14 AM CDT) [facility] Glucose WB/POC 120(H) 70 - 115 mg/dL 11/13/2022 4:27 AM CDT [facility] Specimen Type Cap Fingerstick 2022 4:27 AM CDT [facility] Blood BLOOD SPECIMEN / Unknown 11/13/2022 4:14 AM CDT 11/13/2022 4:27 AM CDT Good Antunez MD LAB - POINT OF CARE ORDERABLES [address] [address], [facility] [phone] * T4 FREE (11/13/2022 2:10 AM CDT) [facility] T4 Free 1.1 0.7 - 1.5 ng/dL 11/13/2022 4:05 AM CDT [facility] Blood BLOOD SPECIMEN / Unknown Lab Venipuncture / Unknown 11/13/2022 2:10 AM CDT 11/13/2022 2:44 AM CDT Good Antunez MD LAB - CHEMISTRY [place] [address] [address], [facility] [phone] * (ABNORMAL) HEPATIC FUNCTION PANEL (11/13/2022 2:10 AM CDT) [facility] Protein Total 6.5 6.0 - 8.3 g/dL 023 3:16 AM CDT [facility] Albumin 2.4(L) 3.4 - 5.0 g/dL 11/13/2022 3:16 AM CDT [facility] Bilirubin Total 0.3 0.2 - 1.2 mg/dL 06/2022 3:16 AM CDT [facility] Bilirubin Conjugated 0.1 0.1 - 0.5 mg/dL 11/13/2022 3:16 AM T [facility] Bilirubin Unconjugated 0.2 Unconjugated Bilirubin is a calculated value: Reference ranges have not been established. mg/dL 11/13/2022 3:16 AM T [facility] Alkaline Phosphatase 77 40 - 150 U/L 11/13/2022 3:16 AM [facility] ALT 286(H) 5 - 55 U/L 11/13/2022 3:16 AM [facility] AST 195(H) 5 - 34 U/L 11/13/2022 3:16 AM [facility] [facility] Albumin/Globulin Ratio 0.6(L) 1.1 - 2.3 11/13/2022 3:16 AM T [facility] Blood BLOOD SPECIMEN / Unknown Lab Venipuncture / Unknown 11/13/2022 2:10 AM CDT 11/13/2022 2:44 AM CDT Good Antunez MD LAB - CHEMISTRY [place] BLACK[place] [address] [address], [facility] [phone] * PHOSPHORUS BLOOD (11/13/2022 2:10 AM CDT) Phosphorus 3.9 2.9 - 5.1 mg/dL 11/13/2022 3:16 AM CDT [facility] Blood BLOOD SPECIMEN / Unknown Lab Venipuncture / Unknown 11/13/2022 2:10 AM CDT 11/13/2022 2:44 AM CDT Good Antunez MD LAB - CHEMISTRY [place] BLACK[place] [address] [address], [facility] [phone] * MAGNESIUM BLOOD (11/13/2022 2:10 AM CDT) Magnesium 2.2 1.6 - 2.6 mg/dL 11/13/2022 3:14 AM [facility] Blood BLOOD SPECIMEN / Unknown Lab Venipuncture / Unknown 11/13/2022 2:10 AM CDT 11/13/2022 2:44 AM T Good Antunez MD LAB - CHEMISTRY [place] BLACK[facility] Organization Address City/State/ZIP Co de Phone Number [facility] [address] [place] [address], [facility] [phone] * (ABNORMAL) BASIC METABOLIC PANEL (CALCIUM TOTAL) (11/13/2022 2:10 AM CDT) BUN 11 7 - 26 mg/dL 11/13/2022 3:14 AM [facility] Creatinine 0.54(L) 0.56 - 0.96 mg/dL 11/13/2022 3:14 AM [facility] Sodium 138 136 - 145 mmol/L 11/13/2022 3:14 AM [facility] Potassium 3.9 3.5 - 4.5 mmol/L 11/13/2022 3:14 AM [facility] Chloride 107 98 - 107 mmol/L 11/13/2022 3:14 AM [facility] CO2 23 22 - 29 mmol/L 11/13/2022 3:14 AM [facility] Glucose 105 70 - 115 mg/dL 11/13/2022 3:14 AM [facility] Calcium 8.1(L) 8.4 - 10.2 mg/dL 11/13/2022 3:14 AM [facility] Anion Gap 12 8 - 18 11/13/2022 3:14 AM [facility] BUN/Creatinine Ratio 20 7 - 23 11/13/2022 3:14 AM [facility] Osmolality Calculated 286 270 - 300 mOsm/kg 11/13/2022 3:14 AM [facility] eGFR by CKD-EPI >90 >=90 mL/min/1.7 3 m2 11/13/2022 3:14 AM [facility] Blood BLOOD SPECIMEN / Unknown Lab Venipuncture / Unknown 11/13/2022 2:10 AM CDT 11/13/2022 2:44 AM CDT Good Antunez MD LAB - CHEMISTRY [place] BL[facility] Organization Address City/State/ZIP Co de Phone Number [facility] [address] [place] [address], [facility] [phone] * (ABNORMAL) CBC W AUTO DIFFERENTIAL (11/13/2022 2:10 AM CDT) WBC 2.7(L) 3.5 - 10.5 10? 3 /uL 11/13/2022 3:11 AM CDT [facility] RBC 3.36(L) 3.80 - 5.20 10? 6 /uL 11/13/2022 3:11 AM [facility] Hemoglobin 9.8(L) 12.0 - 15.6 g/dL 11/13/2022 3:11 AM [facility] Hematocrit 30.8(L) 35.0 - 45.0 % 11/13/2022 3:11 AM [facility] MCV 91.7 80.7 - 98.3 fL 11/13/2022 3:11 AM [facility] MCH 29.2 26.7 - 34.0 pg 11/13/2022 3:11 AM [facility] MCHC 31.8 30.8 - 35.9 g/dL 11/13/2022 3:11 AM [facility] RDW-SD 49.2 36.0 - 50.0 fL 11/13/2022 3:11 AM [facility] RDW-CV 14.9(H) 11.2 - 14.8 % 11/13/2022 3:11 AM [facility] Platelet Count 334 150 - 400 10? 3 /uL 11/13/2022 3:11 AM [facility] MPV 11.0 9.4 - 12.9 fL 11/13/2022 3:11 AM [facility] nRBC Absolute 0.00 0 10? 3 /uL 11/13/2022 3:11 AM T [facility] nRBC Auto 0.0 0 /100 WBC 11/13/2022 3:11 AM [facility] Neutrophils % 28.1(L) 35.0 - 70.0 % 11/13/2022 3:11 AM [facility] Lymphocytes % 45.3(H) 20.0 - 43.0 % 11/13/2022 3:11 AM [facility] Monocytes % 14.6(H) 5.0 - 13.0 % 11/13/2022 3:11 AM [facility] Eosinophils % 9.4(H) 0.0 - 6.0 % 11/13/2022 3:11 AM [facility] Basophil % 0.4 0.0 - 2.0 % 11/13/2022 3:11 AM [facility] Neutrophils Absolute 0.75(L) 1.60 - 7.00 10? 3 /uL 11/13/2022 3:11 AM [facility] Lymphocyte Absolute 1.21 1.10 - 3.90 10? 3 /uL 11/13/2022 3:11 AM [facility] Monocytes Absolute 0.39 0.26 - 1.07 10? 3 /uL 11/13/2022 3:11 AM [facility] Eosinophils Absolute 0.25 0.00 - 0.47 10? 3 /uL 11/13/2022 3:11 AM [facility] Basophils Absolute 0.01 0.00 - 0.08 10? 3 /uL 11/13/2022 3:11 AM [facility] Immature Granulocytes % 2.2(H) 0.0 - 1.0 % 11/13/2022 3:11 AM [facility] Immature Granulocytes Absolute 0.06 11/13/2022 3:11 AM [facility] Blood BLOOD SPECIMEN / Unknown Lab Venipuncture / Unknown 11/13/2022 2:10 AM CDT 11/13/2022 2:44 AM [facility] Good Antunez MD LAB - HEMATOLOGY ORD ERABLES [facility] [address] [place] [address], [facility] [phone] * (ABNORMAL) PTT [facility] (11/13/2022 2:10 AM CDT) APTT 47.9(H) 23.0 - 38.4 Seconds 11/13/2022 2:56 AM CDT [facility] Comment:Suggested therapeuti c range for full dose I.V. unfractionated heparin therapy for venous thromboembolism is 71 to 109 seconds. Blood BLOOD SPECIMEN / Unknown Lab Venipuncture / Unknown 11/13/2022 2:10 AM CDT 11/13/2022 2:39 AM CDT Good Antunez MD LAB - COAGULATION OR DERABLES Performing Organization Address City/[facility]/ZIP Co de Phone Number [address] [address], [facility] [phone] * (ABNORMAL) PT-INR [facility] (11/13/2022 2:10 AM CDT) Pathologist [facility] PT 17.7(H) 12.1 - 14.8 Seconds 11/13/2022 2:56 AM CDT [facility] INR 1.5 See Comment 11/13/2022 2:56 AM CDT [facility] Comment:The suggested therap eutic range for standard coumadin (warfarin) therapy is an INR of 2.0-3.0. For high-risk patients (Mechanical Mitral Valve Prosthesis, etc.), the suggested prophylactic therapeutic range is an INR of 2.5-3.5. Blood BLOOD SPECIMEN / Unknown Lab Venipuncture / Unknown 11/13/2022 2:10 AM CDT 11/13/2022 2:39 AM CDT Emir Vail MD LAB - COAGULATION OR DERABLES [address] [address], [facility] [phone] * (ABNORMAL) TSH REFLEX FREE T4 (11/13/2022 2:10 AM CDT) TSH 5.706(H) 0.350 - 4.940 uIU/mL 11/13/2022 3:33 AM CDT [facility] Blood BLOOD SPECIMEN / Unknown Lab Venipuncture / Unknown 11/13/2022 2:10 AM CDT 11/13/2022 2:44 AM CDT Good Antunez MD LAB - CHEMISTRY ORDE RABKAREN [address] [address], [place] [phone] * GLUCOSE - POINT OF CARE (11/12/2022 11:52 PM CDT) Glucose WB/POC 111 70 - 115 mg/dL 11/13/2022 12:06 AM CDT [facility] Specimen Type Cap Fingerstick 2022 12:06 AM CDT [facility] Blood BLOOD SPECIMEN / Unknown 11/12/2022 11:52 PM CDT 11/13/2022 12:06 AM CDT Good Antunez MD LAB - POINT OF CARE ORDERABLES [address] [address], [place] [phone] * XR CHEST 1VW PORTABLE (11/12/2022 8:44 PM CDT) Anatomical Region Laterality Modality Chest Radiographic Irene ging 11/13/2022 10:4 6 AM CDT Narrative 11/13/2022 11:59 AM CDT PROCEDURE: ??XR CHEST 1VW PORTABLE, DATE/TIME OF EXAM: ??11/12/2022 8:45 PM, LOCATION ??[facility] INDICATION: R50.9: Fever, unspecified fever cause [...] Report dictated by Agnes Olmos DO (residential installer). Pepe Ornelas MD have personally reviewed and interpreted this examination/study. > Interpreting Provider: Pepe Gonzalez MD on 11/13/2022 11:59 AM Procedure Note Pepe Gonzalez MD - 11/13/2022 PROCEDURE: XR CHEST 1VW PORTABLE, DATE/TIME OF EXAM: 11/12/2022 8:45 PM, LOCATION [facility] INDICATION: R50.9: Fever, unspecified fever cause [...] Report dictated by Agnes Olmos DO (residential installer). Pepe Ornelas MD have personally reviewed and interpreted this examination/study. > Interpreting Provider: Pepe Gonzalez MD on 11/13/2022 11:59 AM Good Antunez MD DIAGNOSTIC IMAGING O RDERABLES * (ABNORMAL) GLUCOSE - POINT OF CARE (11/12/2022 7:40 PM CDT) Glucose WB/POC 117(H) 70 - 115 mg/dL 11/12/2022 7:43 PM CDT [facility] Specimen Type Cap Fingerstick 2022 7:43 PM CDT [facility] Blood BLOOD SPECIMEN / Unknown 11/12/2022 7:40 PM CDT 11/12/2022 7:43 PM CDT Good Antunez MD LAB - POINT OF CARE ORDERABLES [facility] [address] [place] [address], [place] [phone] * (ABNORMAL) PTT [facility] (11/12/2022 5:32 AM CDT) APTT 102.7(HH) 23.0 - 38.4 Seconds 11/12/2022 6:42 AM CDT [facility] Comment:Suggested therapeuti c range for full dose I.V. unfractionated heparin therapy for venous thromboembolism is 71 to 109 seconds. Blood BLOOD SPECIMEN / Unknown Lab Venipuncture / Unknown 11/12/2022 5:32 AM CDT 11/12/2022 6:08 AM CDT Good Antunez MD LAB - COAGULATION OR DERABLES Performing Organization Address City/[facility]/ZIP Co de Phone Number [address] [address], [facility] [phone] * (ABNORMAL) PHOSPHORUS BLOOD (11/12/2022 5:32 AM CDT) Phosphorus 2.5(L) 2.9 - 5.1 mg/dL 11/12/2022 6:45 AM CDT [facility] Blood BLOOD SPECIMEN / Unknown Lab Venipuncture / Unknown 11/12/2022 5:32 AM CDT 11/12/2022 6:16 AM CDT Good Antunez MD LAB - CHEMISTRY [place] Performing Organization Address City/[facility]/ZIP Co de Phone Number [address] [address], [place] [phone] * MAGNESIUM BLOOD (11/12/2022 5:32 AM CDT) Magnesium 1.7 1.6 - 2.6 mg/dL 11/12/2022 6:45 AM CDT [facility] Blood BLOOD SPECIMEN / Unknown Lab Venipuncture / Unknown 11/12/2022 5:32 AM CDT 11/12/2022 6:16 AM CDT Good Antunez MD LAB - CHEMISTRY [place] BLACKMAN [address] [place] [address], [facility] [phone] * (ABNORMAL) BASIC METABOLIC PANEL (CALCIUM TOTAL) (11/12/2022 5:32 AM T) BUN 13 7 - 26 mg/dL 11/12/2022 6:45 AM [facility] Creatinine 0.59 0.56 - 0.96 mg/dL 11/12/2022 6:45 AM [facility] Sodium 136 136 - 145 mmol/L 11/12/2022 6:45 AM [facility] Potassium 3.3(L) 3.5 - 4.5 mmol/L 11/12/2022 6:45 AM [facility] Chloride 105 98 - 107 mmol/L 11/12/2022 6:45 AM [facility] CO2 21(L) 22 - 29 mmol/L 11/12/2022 6:45 AM [facility] Glucose 120(H) 70 - 115 mg/dL 11/12/2022 6:45 AM [facility] Calcium 7.8(L) 8.4 - 10.2 mg/dL 11/12/2022 6:45 AM [facility] Anion Gap 13 8 - 18 11/12/2022 6:45 AM [facility] BUN/Creatinine Ratio 22 7 - 23 11/12/2022 6:45 AM [facility] Osmolality Calculated 283 270 - 300 mOsm/kg 11/12/2022 6:45 AM [facility] eGFR by CKD-EPI >90 >=90 mL/min/1.7 3 m2 11/12/2022 6:45 AM [facility] Blood BLOOD SPECIMEN / Unknown Lab Venipuncture / Unknown 11/12/2022 5:32 AM CDT 11/12/2022 6:16 AM [facility] Good Antunez MD LAB - CHEMISTRY [place] BLACK[facility] Organization Address City/State/ZIP Co de Phone Number [facility] [address] [place] [address], [facility] [phone] * (ABNORMAL) CBC W AUTO DIFFERENTIAL (11/12/2022 5:32 AM [facility]) WBC 4.8 3.5 - 10.5 10? 3 /uL 11/12/2022 6:27 AM [facility] RBC 3.27(L) 3.80 - 5.20 10? 6 /uL 11/12/2022 6:27 AM [facility] Hemoglobin 9.4(L) 12.0 - 15.6 g/dL 11/12/2022 6:27 AM [facility] Hematocrit 30.2(L) 35.0 - 45.0 % 11/12/2022 6:27 AM [facility] MCV 92.4 80.7 - 98.3 fL 11/12/2022 6:27 AM [facility] MCH 28.7 26.7 - 34.0 pg 11/12/2022 6:27 AM [facility] MCHC 31.1 30.8 - 35.9 g/dL 11/12/2022 6:27 AM [facility] RDW-SD 48.6 36.0 - 50.0 fL 11/12/2022 6:27 AM [facility] RDW-CV 14.6 11.2 - 14.8 % 11/12/2022 6:27 AM [facility] Platelet Count 333 150 - 400 10? 3 /uL 11/12/2022 6:27 AM [facility] MPV 11.1 9.4 - 12.9 fL 11/12/2022 6:27 AM [facility] nRBC Absolute 0.00 0 10? 3 /uL 11/12/2022 6:27 AM [facility] nRBC Auto 0.0 0 /100 WBC 11/12/2022 6:27 AM [facility] Neutrophils % 70.4(H) 35.0 - 70.0 % 11/12/2022 6:27 AM [facility] Lymphocytes % 17.7(L) 20.0 - 43.0 % 11/12/2022 6:27 AM [facility] Monocytes % 4.6(L) 5.0 - 13.0 % 11/12/2022 6:27 AM [facility] Eosinophils % 6.1(H) 0.0 - 6.0 % 11/12/2022 6:27 AM [facility] Basophil % 0.2 0.0 - 2.0 % 11/12/2022 6:27 AM [facility] Neutrophils Absolute 3.37 1.60 - 7.00 10? 3 /uL 11/12/2022 6:27 AM [facility] Lymphocyte Absolute 0.85(L) 1.10 - 3.90 10? 3 /uL 11/12/2022 6:27 AM [facility] Monocytes Absolute 0.22(L) 0.26 - 1.07 10? 3 /uL 11/12/2022 6:27 AM [facility] Eosinophils Absolute 0.29 0.00 - 0.47 10? 3 /uL 11/12/2022 6:27 AM [facility] Basophils Absolute 0.01 0.00 - 0.08 10? 3 /uL 11/12/2022 6:27 AM [facility] Immature Granulocytes % 1.0 0.0 - 1.0 % 11/12/2022 6:27 AM [facility] Immature Granulocytes Absolute 0.05 11/12/2022 6:27 AM [facility] Blood BLOOD SPECIMEN / Unknown Lab Venipuncture / Unknown 11/12/2022 5:32 AM CDT 11/12/2022 6:15 AM CDT Good Antunez MD LAB - HEMATOLOGY ORD ERABLES [facility] [address] [place] [address], [facility] [phone] * (ABNORMAL) PT-INR [facility] (11/12/2022 5:32 AM CDT) PT 22.1(H) 12.1 - 14.8 Seconds 11/12/2022 6:42 AM [facility] INR 2.0 See Comment 11/12/2022 6:42 AM [facility] Comment:The suggested therap eutic range for standard coumadin (warfarin) therapy is an INR of 2.0-3.0. For high-risk patients (Mechanical Mitral Valve Prosthesis, etc.), the suggested prophylactic therapeutic range is an INR of 2.5-3.5. Blood BLOOD SPECIMEN / Unknown Lab Venipuncture / Unknown 11/12/2022 5:32 AM CDT 11/12/2022 6:08 AM CDT Emir Vail MD LAB - COAGULATION OR DERABLES [facility] [address] [place] [address], [facility] [phone] * (ABNORMAL) HEPATIC FUNCTION PANEL (11/12/2022 5:32 AM CDT) Protein Total 6.5 6.0 - 8.3 g/dL 023 6:53 AM [facility] Albumin 2.5(L) 3.4 - 5.0 g/dL 11/12/2022 6:53 AM [facility] Bilirubin Total 0.3 0.2 - 1.2 mg/dL 05/2022 6:53 AM [facility] Bilirubin Conjugated 0.2 0.1 - 0.5 mg/dL 11/12/2022 6:53 AM [facility] Bilirubin Unconjugated 0.1 Unconjugated Bilirubin is a calculated value: Reference ranges have not been established. mg/dL 11/12/2022 6:53 AM [facility] Alkaline Phosphatase 75 40 - 150 U/L 11/12/2022 6:53 AM [facility] ALT 266(H) 5 - 55 U/L 11/12/2022 6:53 AM [facility] AST 220(H) 5 - 34 U/L 11/12/2022 6:53 AM [facility] Albumin/Globulin Ratio 0.6(L) 1.1 - 2.3 11/12/2022 6:53 AM [facility] Blood BLOOD SPECIMEN / Unknown Lab Venipuncture / Unknown 11/12/2022 5:32 AM CDT 11/12/2022 6:16 AM CDT Good Antunez MD LAB - CHEMISTRY [place] BLACKMAN Performing Organization Address City/[facility]/ZIP Co de Phone Number [facility] [address] [place] [address], [place] [phone] * CULTURE BLOOD (11/12/2022 5:32 AM CDT) Culture No growth day 5 ROSELIA 11/17/2022 10:01 AM CDT [facility] Blood PERIPHERAL BLOOD / Unknown Lab Venipuncture / Unknown 11/12/2022 5:32 AM CDT 11/12/2022 6:09 AM CDT Good Antunez MD LAB - MICROBIOLOGY O RDERABLES Performing Organization Address [facility]/ZIP Co de Phone Number [facility] [address] [place] [address], [facility] [phone] * (ABNORMAL) GLUCOSE - POINT OF CARE (11/12/2022 3:44 AM CDT) Pathologist [facility] Glucose WB/POC 128(H) 70 - 115 mg/dL 11/12/2022 3:49 AM CDT [facility] Specimen Type Cap Fingerstick 2022 3:49 AM CDT [facility] Blood BLOOD SPECIMEN / Unknown 11/12/2022 3:44 AM CDT 11/12/2022 3:49 AM CDT Good Antunez MD LAB - POINT OF CARE ORDERABLES Performing Organization Address City/[facility]/ZIP Co de Phone Number [facility] [address] [place] [address], [place] [phone] * (ABNORMAL) PTT [facility] (11/11/2022 11:51 PM CDT) APTT 78.8(H) 23.0 - 38.4 Seconds 11/12/2022 12:49 AM CDT [facility] Comment:Suggested therapeuti c range for full dose I.V. unfractionated heparin therapy for venous thromboembolism is 71 to 109 seconds. Blood BLOOD SPECIMEN / Unknown Venipuncture / Unknown 11/11/2022 11:51 PM CDT 11/11/2022 11:59 PM CDT Good Antunez MD LAB - COAGULATION OR DERABLES Performing Organization Address City/[facility]/ZIP Co de Phone Number [address] [address], [place] [phone] * (ABNORMAL) GLUCOSE - POINT OF CARE (11/11/2022 11:33 PM CDT) Glucose WB/POC 129(H) 70 - 115 mg/dL 11/11/2022 11:38 PM CDT [facility] Specimen Type Cap Fingerstick 2022 11:38 PM CDT [facility] Blood BLOOD SPECIMEN / Unknown 11/11/2022 11:33 PM CDT 11/11/2022 11:38 PM CDT Good Antunez MD LAB - POINT OF CARE ORDERABLES Performing Organization Address [facility]/ZIP Co de Phone Number [address] [address], [place] [phone] * GLUCOSE - POINT OF CARE (11/11/2022 9:25 PM CDT) Glucose WB/POC 95 70 - 115 mg/dL 11/11/2022 9:30 PM CDT [facility] Specimen Type Cap Fingerstick 2022 9:30 PM CDT [facility] Blood BLOOD SPECIMEN / Unknown 11/11/2022 9:25 PM CDT 11/11/2022 9:30 PM CDT Good Antunez MD LAB - POINT OF CARE ORDERABLES Performing Organization Address City/[facility]/ZIP Co de Phone Number [address] [address], [place] [phone] * (ABNORMAL) PTT [facility] (11/11/2022 5:03 PM CDT) APTT 140.8(HH) 23.0 - 38.4 Seconds 11/11/2022 5:47 PM CDT [facility] Comment:Suggested therapeuti c range for full dose I.V. unfractionated heparin therapy for venous thromboembolism is 71 to 109 seconds. Blood BLOOD SPECIMEN / Unknown Venipuncture / Unknown 11/11/2022 5:03 PM CDT 11/11/2022 5:08 PM CDT Good Antunez MD LAB - COAGULATION OR DERABLES Performing Organization Address City/[facility]/ZIP Co de Phone Number [address] [address], [place] [phone] * PHOSPHORUS BLOOD (11/11/2022 5:03 PM CDT) Phosphorus 3.3 2.9 - 5.1 mg/dL 11/11/2022 5:34 PM CDT [facility] Blood BLOOD SPECIMEN / Unknown Venipuncture / Unknown 11/11/2022 5:03 PM CDT 11/11/2022 5:22 PM CDT Good Antunez MD LAB - CHEMISTRY B[place]NA BLACKMAN Performing Organization Address City/[facility]/ZIP Co de Phone Number [address] [address], [place] [phone] * MAGNESIUM BLOOD (11/11/2022 5:03 PM CDT) Magnesium 2.0 1.6 - 2.6 mg/dL 11/11/2022 5:34 PM CDT [facility] Blood BLOOD SPECIMEN / Unknown Venipuncture / Unknown 11/11/2022 5:03 PM CDT 11/11/2022 5:22 PM CDT Good Antunez MD LAB - CHEMISTRY [place] BLACKMAN [address] [place] [address], [facility] [phone] * (ABNORMAL) BASIC METABOLIC PANEL (CALCIUM TOTAL) (11/11/2022 5:03 PM CDT) BUN 11 7 - 26 mg/dL 11/11/2022 5:34 PM [facility] Creatinine 0.56 0.56 - 0.96 mg/dL 11/11/2022 5:34 PM [facility] Sodium 140 136 - 145 mmol/L 11/11/2022 5:34 PM [facility] Potassium 3.8 3.5 - 4.5 mmol/L 11/11/2022 5:34 PM [facility] Chloride 108(H) 98 - 107 mmol/L 11/11/2022 5:34 PM [facility] CO2 22 22 - 29 mmol/L 11/11/2022 5:34 PM [facility] Glucose 105 70 - 115 mg/dL 11/11/2022 5:34 PM [facility] Calcium 8.4 8.4 - 10.2 mg/dL 11/11/2022 5:34 PM [facility] Anion Gap 14 8 - 18 11/11/2022 5:34 PM [facility] BUN/Creatinine Ratio 20 7 - 23 11/11/2022 5:34 PM [facility] Osmolality Calculated 290 270 - 300 mOsm/kg 11/11/2022 5:34 PM [facility] eGFR by CKD-EPI >90 >=90 mL/min/1.7 3 m2 11/11/2022 5:34 PM [facility] Blood BLOOD SPECIMEN / Unknown Venipuncture / Unknown 11/11/2022 5:03 PM CDT 11/11/2022 5:22 PM CDT Good Antunez MD LAB - CHEMISTRY B[facility]NA BLACKMAN [facility] Organization Address City/State/ZIP Co de Phone Number [address] [address], [facility] [phone] * (ABNORMAL) CBC W AUTO DIFFERENTIAL (11/11/2022 5:03 PM CDT) WBC 5.0 3.5 - 10.5 10? 3 /uL 11/11/2022 5:17 PM [facility] RBC 3.41(L) 3.80 - 5.20 10? 6 /uL 11/11/2022 5:17 PM [facility] Hemoglobin 9.9(L) 12.0 - 15.6 g/dL 11/11/2022 5:17 PM [facility] Hematocrit 31.9(L) 35.0 - 45.0 % 11/11/2022 5:17 PM [facility] MCV 93.5 80.7 - 98.3 fL 11/11/2022 5:17 PM [facility] MCH 29.0 26.7 - 34.0 pg 11/11/2022 5:17 PM [facility] MCHC 31.0 30.8 - 35.9 g/dL 11/11/2022 5:17 PM [facility] RDW-SD 49.3 36.0 - 50.0 fL 11/11/2022 5:17 PM [facility] RDW-CV 14.6 11.2 - 14.8 % 11/11/2022 5:17 PM [facility] Platelet Count 332 150 - 400 10? 3 /uL 11/11/2022 5:17 PM [facility] MPV 10.8 9.4 - 12.9 fL 11/11/2022 5:17 PM [facility] nRBC Absolute 0.00 0 10? 3 /uL 11/11/2022 5:17 PM [facility] nRBC Auto 0.0 0 /100 WBC 11/11/2022 5:17 PM [facility] Neutrophils % 64.9 35.0 - 70.0 % 11/11/2022 5:17 PM [facility] Lymphocytes % 23.3 20.0 - 43.0 % 11/11/2022 5:17 PM [facility] Monocytes % 8.2 5.0 - 13.0 % 11/11/2022 5:17 PM [facility] Eosinophils % 2.0 0.0 - 6.0 % 11/11/2022 5:17 PM CDT [facility] Basophil % 0.4 0.0 - 2.0 % 11/11/2022 5:17 PM CDT [facility] Neutrophils Absolute 3.23 1.60 - 7.00 10? 3 /uL 11/11/2022 5:17 PM CDT [facility] Lymphocyte Absolute 1.16 1.10 - 3.90 10? 3 /uL 11/11/2022 5:17 PM CDT [facility] Monocytes Absolute 0.41 0.26 - 1.07 10? 3 /uL 11/11/2022 5:17 PM CDT [facility] Eosinophils Absolute 0.10 0.00 - 0.47 10? 3 /uL 11/11/2022 5:17 PM CDT [facility] Basophils Absolute 0.02 0.00 - 0.08 10? 3 /uL 11/11/2022 5:17 PM CDT [facility] Immature Granulocytes % 1.2(H) 0.0 - 1.0 % 11/11/2022 5:17 PM CDT [facility] Immature Granulocytes Absolute 0.06 11/11/2022 5:17 PM CDT [facility] Blood BLOOD SPECIMEN / Unknown Venipuncture / Unknown 11/11/2022 5:03 PM CDT 11/11/2022 5:11 PM CDT Good Antunez MD LAB - HEMATOLOGY ORD ERABLES [facility] [address] [place] [address], [facility] [phone] * LACTIC ACID BLOOD REFLEX TO REPEAT (11/11/2022 5:03 PM CDT) Lactic Acid-Stat 1.0 <=2.0 mmol/L 11/11/2022 5:35 PM CDT [facility] Blood BLOOD SPECIMEN / Unknown Venipuncture / Unknown 11/11/2022 5:03 PM CDT 11/11/2022 5:09 PM CDT Good Antunez MD LAB - CHEMISTRY ORDE RABLES Performing Organization Address [facility] [place]/ZIP Co de Phone Number [address] [address], [facility] [phone] * (ABNORMAL) PTT [facility] (11/11/2022 9:28 AM CDT) APTT 129.8(HH) 23.0 - 38.4 Seconds 11/11/2022 10:30 AM CDT [facility] Comment:Suggested therapeuti c range for full dose I.V. unfractionated heparin therapy for venous thromboembolism is 71 to 109 seconds. Blood BLOOD SPECIMEN / Unknown Venipuncture / Unknown 11/11/2022 9:28 AM CDT 11/11/2022 9:28 AM CDT Good Antunez MD LAB - COAGULATION OR DERABLES Performing Organization Address [facility] [place] Co de Phone Number [address] [address], [facility] [phone] * (ABNORMAL) PT-INR [facility] (11/11/2022 9:28 AM CDT) PT 16.2(H) 12.1 - 14.8 Seconds 11/11/2022 10:30 AM CDT [facility] INR 1.3 See Comment 11/11/2022 10:30 AM CDT [facility] Comment:The suggested therap eutic range for standard coumadin (warfarin) therapy is an INR of 2.0-3.0. For high-risk patients (Mechanical Mitral Valve Prosthesis, etc.), the suggested prophylactic therapeutic range is an INR of 2.5-3.5. Blood BLOOD SPECIMEN / Unknown Venipuncture / Unknown 11/11/2022 9:28 AM CDT 11/11/2022 9:28 AM CDT Emir Vail MD LAB - COAGULATION OR DERABLES Performing Organization Address [facility]/[facility]/ZIP Co de Phone Number [address] [address], [facility] [phone] * (ABNORMAL) GLUCOSE - POINT OF CARE (11/11/2022 4:48 AM CDT) Glucose WB/POC 148(H) 70 - 115 mg/dL 11/11/2022 8:15 AM CDT [facility] Specimen Type Cap Fingerstick 2022 8:15 AM CDT [facility] Blood BLOOD SPECIMEN / Unknown 11/11/2022 4:48 AM CDT 11/11/2022 8:15 AM CDT Good Antunez MD LAB - POINT OF CARE ORDERABLES [address] [address], [place] [phone] * (ABNORMAL) GLUCOSE - POINT OF CARE (11/11/2022 12:33 AM CDT) Glucose WB/POC 130(H) 70 - 115 mg/dL 11/11/2022 12:37 AM CDT [facility] Specimen Type Cap Fingerstick 2022 12:37 AM CDT [facility] Blood BLOOD SPECIMEN / Unknown 11/11/2022 12:33 AM CDT 11/11/2022 12:37 AM CDT Good Antunez MD LAB - POINT OF CARE ORDERABLES [address] [address], [place] [phone] * TYPE + SCREEN PANEL (11/10/2022 11:38 PM CDT) Antibody Screen NEG 12:45 AM CDT [facility] ABO Rh B POS 11/11/2022 12:45 AM CDT [facility] Blood Bank BLOOD SPECIMEN / Unknown Lab Venipuncture / Unknown 11/10/2022 11:38 PM CDT 11/10/2022 11:51 PM CDT Good Antunez MD LAB - BLOOD BANK ORD ERABLES [facility] [address] [place] [address], [facility] [phone] * (ABNORMAL) CBC W AUTO DIFFERENTIAL (11/10/2022 11:38 PM [facility]) WBC 7.1 3.5 - 10.5 10? 3 /uL 11/11/2022 1:02 AM [facility] RBC 3.22(L) 3.80 - 5.20 10? 6 /uL 11/11/2022 1:02 AM [facility] Hemoglobin 9.5(L) 12.0 - 15.6 g/dL 11/11/2022 1:02 AM [facility] Hematocrit 29.7(L) 35.0 - 45.0 % 11/11/2022 1:02 AM [facility] MCV 92.2 80.7 - 98.3 fL 11/11/2022 1:02 AM [facility] MCH 29.5 26.7 - 34.0 pg 11/11/2022 1:02 AM [facility] MCHC 32.0 30.8 - 35.9 g/dL 11/11/2022 1:02 AM [facility] RDW-SD 48.4 36.0 - 50.0 fL 11/11/2022 1:02 AM [facility] RDW-CV 14.5 11.2 - 14.8 % 11/11/2022 1:02 AM [facility] Platelet Count 297 150 - 400 10? 3 /uL 11/11/2022 1:02 AM [facility] MPV 11.1 9.4 - 12.9 fL 11/11/2022 1:02 AM [facility] nRBC Absolute 0.00 0 10? 3 /uL 11/11/2022 1:02 AM [facility] nRBC Auto 0.0 0 /100 WBC 11/11/2022 1:02 AM [facility] Neutrophils % 85.3(H) 35.0 - 70.0 % 11/11/2022 1:02 AM [facility] Lymphocytes % 10.1(L) 20.0 - 43.0 % 11/11/2022 1:02 AM [facility] Monocytes % 3.0(L) 5.0 - 13.0 % 11/11/2022 1:02 AM [facility] Eosinophils % 0.1 0.0 - 6.0 % 11/11/2022 1:02 AM [facility] Basophil % 0.1 0.0 - 2.0 % 11/11/2022 1:02 AM [facility] Neutrophils Absolute 6.01 1.60 - 7.00 10? 3 /uL 11/11/2022 1:02 AM [facility] Lymphocyte Absolute 0.71(L) 1.10 - 3.90 10? 3 /uL 11/11/2022 1:02 AM [facility] Monocytes Absolute 0.21(L) 0.26 - 1.07 10? 3 /uL 11/11/2022 1:02 AM [facility] Eosinophils Absolute 0.01 0.00 - 0.47 10? 3 /uL 11/11/2022 1:02 AM [facility] Basophils Absolute 0.01 0.00 - 0.08 10? 3 /uL 11/11/2022 1:02 AM [facility] Immature Granulocytes % 1.4(H) 0.0 - 1.0 % 11/11/2022 1:02 AM [facility] Immature Granulocytes Absolute 0.10 11/11/2022 1:02 AM [facility] Blood BLOOD SPECIMEN / Unknown Lab Venipuncture / Unknown 11/10/2022 11:38 PM CDT 11/10/2022 11:50 PM CDT Good Antunez MD LAB - HEMATOLOGY ORD ERABLES [facility] [address] [place] [address], [facility] [phone] * PTT [facility] (11/10/2022 11:38 PM CDT) APTT 36.3 23.0 - 38.4 Seconds 11/11/2022 12:07 AM CDT [facility] Comment:Suggested therapeuti c range for full dose I.V. unfractionated heparin therapy for venous thromboembolism is 71 to 109 seconds. Blood BLOOD SPECIMEN / Unknown Lab Venipuncture / Unknown 11/10/2022 11:38 PM CDT 11/10/2022 11:56 PM CDT Good Antunez MD LAB - COAGULATION OR DERABLES Performing Organization Address City/[facility]/ZIP Co de Phone Number [facility] [address] [place] [address], [facility] [phone] * (ABNORMAL) PT-INR [facility] (11/10/2022 11:38 PM CDT) PT 15.6(H) 12.1 - 14.8 Seconds 11/11/2022 12:07 AM CDT [facility] INR 1.3 See Comment 11/11/2022 12:07 AM T [facility] Comment:The suggested therap eutic range for standard coumadin (warfarin) therapy is an INR of 2.0-3.0. For high-risk patients (Mechanical Mitral Valve Prosthesis, etc.), the suggested prophylactic therapeutic range is an INR of 2.5-3.5. Blood BLOOD SPECIMEN / Unknown Lab Venipuncture / Unknown 11/10/2022 11:38 PM CDT 11/10/2022 11:56 PM CDT Good Antunez MD LAB - COAGULATION OR DERABLES Performing Organization Address City/[facility]/ZIP Co de Phone Number [facility] [address] [place] [address], [facility] [phone] * (ABNORMAL) GLUCOSE - POINT OF CARE (11/10/2022 11:28 PM CDT) Glucose WB/POC 117(H) 70 - 115 mg/dL 11/10/2022 11:33 PM CDT [facility] Specimen Type Cap Fingerstick 2022 11:33 PM CDT [facility] Blood BLOOD SPECIMEN / Unknown 11/10/2022 11:28 PM CDT 11/10/2022 11:32 PM CDT Good Antunez MD LAB - POINT OF CARE ORDERABLES [facility] [address] [place] [address], [facility] [phone] * (ABNORMAL) CBC W AUTO DIFFERENTIAL (11/10/2022 2:24 AM CDT) WBC 3.6 3.5 - 10.5 10? 3 /uL 11/10/2022 2:57 AM [facility] RBC 3.23(L) 3.80 - 5.20 10? 6 /uL 11/10/2022 2:57 AM [facility] Hemoglobin 9.4(L) 12.0 - 15.6 g/dL 11/10/2022 2:57 AM [facility] Hematocrit 29.4(L) 35.0 - 45.0 % 11/10/2022 2:57 AM [facility] MCV 91.0 80.7 - 98.3 fL 11/10/2022 2:57 AM [facility] MCH 29.1 26.7 - 34.0 pg 11/10/2022 2:57 AM [facility] MCHC 32.0 30.8 - 35.9 g/dL 11/10/2022 2:57 AM [facility] RDW-SD 47.3 36.0 - 50.0 fL 11/10/2022 2:57 AM [facility] RDW-CV 14.3 11.2 - 14.8 % 11/10/2022 2:57 AM [facility] Platelet Count 302 150 - 400 10? 3 /uL 11/10/2022 2:57 AM [facility] MPV 10.9 9.4 - 12.9 fL 11/10/2022 2:57 AM [facility] nRBC Absolute 0.00 0 10? 3 /uL 11/10/2022 2:57 AM [facility] nRBC Auto 0.0 0 /100 WBC 11/10/2022 2:57 AM [facility] Neutrophils % 64.8 35.0 - 70.0 % 11/10/2022 2:57 AM [facility] Lymphocytes % 23.7 20.0 - 43.0 % 11/10/2022 2:57 AM [facility] Monocytes % 8.4 5.0 - 13.0 % 11/10/2022 2:57 AM [facility] Eosinophils % 1.4 0.0 - 6.0 % 11/10/2022 2:57 AM [facility] Basophil % 0.3 0.0 - 2.0 % 11/10/2022 2:57 AM [facility] Neutrophils Absolute 2.32 1.60 - 7.00 10? 3 /uL 11/10/2022 2:57 AM [facility] Lymphocyte Absolute 0.85(L) 1.10 - 3.90 10? 3 /uL 11/10/2022 2:57 AM [facility] Monocytes Absolute 0.30 0.26 - 1.07 10? 3 /uL 11/10/2022 2:57 AM [facility] Eosinophils Absolute 0.05 0.00 - 0.47 10? 3 /uL 11/10/2022 2:57 AM [facility] Basophils Absolute 0.01 0.00 - 0.08 10? 3 /uL 11/10/2022 2:57 AM [facility] Immature Granulocytes % 1.4(H) 0.0 - 1.0 % 11/10/2022 2:57 AM [facility] Immature Granulocytes Absolute 0.05 11/10/2022 2:57 AM [facility] Blood BLOOD SPECIMEN / Unknown Lab Venipuncture / Unknown 11/10/2022 2:24 AM CDT 11/10/2022 2:39 AM [facility] Emir Vail MD LAB - HEMATOLOGY ORD ERABLES [facility] [address] [place] [address], [facility] [phone] * (ABNORMAL) PT-INR [facility] (11/10/2022 2:23 AM CDT) PT 20.5(H) 12.1 - 14.8 Seconds 11/10/2022 2:54 AM [facility] INR 1.8 See Comment 11/10/2022 2:54 AM [facility] Comment:The suggested therap eutic range for standard coumadin (warfarin) therapy is an INR of 2.0-3.0. For high-risk patients (Mechanical Mitral Valve Prosthesis, etc.), the suggested prophylactic therapeutic range is an INR of 2.5-3.5. Blood BLOOD SPECIMEN / Unknown Lab Venipuncture / Unknown 11/10/2022 2:23 AM CDT 11/10/2022 2:29 AM CDT Emir Vail MD LAB - COAGULATION OR DERABLES Performing Organization Address City/State/[facility] Co de Phone Number [facility] [address] [place] [address], [facility] [phone] * (ABNORMAL) BASIC METABOLIC PANEL (CALCIUM TOTAL) (11/10/2022 2:23 AM CDT) BUN 13 7 - 26 mg/dL 11/10/2022 3:12 AM [facility] Creatinine 0.52(L) 0.56 - 0.96 mg/dL 11/10/2022 3:12 AM [facility] Sodium 136 136 - 145 mmol/L 11/10/2022 3:12 AM [facility] Potassium 3.6 3.5 - 4.5 mmol/L 11/10/2022 3:12 AM [facility] Chloride 105 98 - 107 mmol/L 11/10/2022 3:12 AM [facility] CO2 24 22 - 29 mmol/L 11/10/2022 3:12 AM [facility] Glucose 120(H) 70 - 115 mg/dL 11/10/2022 3:12 AM [facility] Calcium 8.4 8.4 - 10.2 mg/dL 11/10/2022 3:12 AM CDT [facility] Anion Gap 11 8 - 18 11/10/2022 3:12 AM CDT [facility] BUN/Creatinine Ratio 25(H) 7 - 23 11/10/2022 3:12 AM CDT [facility] Osmolality Calculated 283 270 - 300 mOsm/kg 11/10/2022 3:12 AM CDT [facility] eGFR by CKD-EPI >90 >=90 mL/min/1.7 3 m2 11/10/2022 3:12 AM CDT [facility] Blood BLOOD SPECIMEN / Unknown Lab Venipuncture / Unknown 11/10/2022 2:23 AM CDT 11/10/2022 2:39 AM CDT Emir Vail MD LAB - CHEMISTRY ORDDanyelle BLACKMAN Performing Organization Address [facility] [place]/[facility]/ZIP Co de Phone Number [facility] [address] [place] [address], [place] [phone] * PHOSPHORUS BLOOD (11/10/2022 2:23 AM CDT) Phosphorus 3.9 2.9 - 5.1 mg/dL 11/10/2022 3:12 AM CDT [facility] Blood BLOOD SPECIMEN / Unknown Lab Venipuncture / Unknown 11/10/2022 2:23 AM CDT 11/10/2022 2:39 AM CDT Emir Vail MD LAB - CHEMISTRY BIBIANA BLACKMAN Performing Organization Address City/[facility]/ZIP Co de Phone Number [facility] [address] [place] [address], [place] [phone] * MAGNESIUM BLOOD (11/10/2022 2:23 AM CDT) Magnesium 2.0 1.6 - 2.6 mg/dL 11/10/2022 3:12 AM CDT [facility] Blood BLOOD SPECIMEN / Unknown Lab Venipuncture / Unknown 11/10/2022 2:23 AM CDT 11/10/2022 2:39 AM CDT Emir Vail MD LAB - CHEMISTRY BIB[place]NA BLACKMAN [id number] [place] [address], [facility] [phone] * MRI BRAIN WWO CONTRAST (11/09/2022 11:50 [...] DATE/TIME OF EXAM: ??11/09/2022 11:51 PM, LOCATION ??[facility] INDICATION: R50.9: Fever, unspecified fever cause [...] of the right lateral ventricle and the [id number] midline shift. Extensive susceptibility artifacts along the [...] CONTRAST, DATE/TIME OF EXAM: 11/09/2022 11:51PM, LOCATION [facility] INDICATION: R50.9: Fever, unspecified fever cause [...] of the right lateral ventricle and the [id number] midline shift. Extensive susceptibility artifacts along the [...] right lateral ventricle.. There is also small [id number] focus along the right temporal lobe (image [...] - 8.3 g/dL 023 7:25 AM CDT [facility] Albumin 2.6(L) 3.4 - 5.0 g/dL 11/09/2022 7:25 AM CDT [facility] Bilirubin Total 0.3 0.2 - 1.2 mg/dL 10/12 7:25 AM CDT [facility] Bilirubin Conjugated 0.1 0.1 - 0.5 mg/dL 11/09/2022 7:25 AM CDT [facility] Bilirubin Unconjugated 0.2 Unconjugated Bilirubin is a calculated value: Reference ranges have not been established. mg/dL 11/09/2022 7:25 AM T [facility] Alkaline Phosphatase 73 40 - 150 U/L 11/09/2022 7:25 AM CDT [facility] ALT 77(H) 5 - 55 U/L 11/09/2022 7:25 AM T [facility] AST 67(H) 5 - 34 U/L 11/09/2022 7:25 AM T [facility] Albumin/Globulin Ratio 0.6(L) 1.1 - 2.3 11/09/2022 7:25 AM [facility] Blood BLOOD SPECIMEN / Unknown Lab Venipuncture / Unknown 11/09/2022 6:54 AM CDT 11/09/2022 7:06 AM CDT Angelica Cruz MD LAB - CHEMISTRY BIBIANA BLACKMAN [facility] Organization Address City/State/[facility] de Phone Number [facility] [address] [place] [address], [facility] [phone] * VANCOMYCIN LEVEL TROUGH (11/09/2022 6:54 AM CDT) Vancomycin Trough 18.8 10.0 - 20.0 ug/mL 11/09/2022 7:24 AM CDT [facility] Blood BLOOD SPECIMEN / Unknown Lab Venipuncture / Unknown 11/09/2022 6:54 AM CDT 11/09/2022 6:57 AM CDT Narrative [facility] - 11/09/2022 7:24 AM CDT See institution protocol. Jaime Drew MD LAB - CHEMISTRY BIBIANA BLACKMAN Performing Organization Address City/[facility]/ZIP Co de Phone Number [address] [address], [facility] [phone] * (ABNORMAL) PT-INR [facility] (11/09/2022 2:37 AM CDT) PT 18.9(H) 12.1 - 14.8 Seconds 11/09/2022 3:05 AM CDT [facility] INR 1.6 See Comment 11/09/2022 3:05 AM CDT [facility] Comment:The suggested therap eutic range for standard coumadin (warfarin) therapy is an INR of 2.0-3.0. For high-risk patients (Mechanical Mitral Valve Prosthesis, etc.), the suggested prophylactic therapeutic range is an INR of 2.5-3.5. Blood BLOOD SPECIMEN / Unknown Lab Venipuncture / Unknown 11/09/2022 2:37 AM CDT 11/09/2022 2:48 AM CDT Emir Vail MD LAB - COAGULATION OR DERABLES Performing Organization Address City/[facility]/ZIP Co de Phone Number [facility] [address] [place] [address], [facility] [phone] * (ABNORMAL) BASIC METABOLIC PANEL (CALCIUM TOTAL) (11/08/2022 11:46 PM CDT) BUN 9 7 - 26 mg/dL 11/09/2022 12:23 AM CDT [facility] Creatinine 0.45(L) 0.56 - 0.96 mg/dL 11/09/2022 12:23 AM T [facility] Sodium 141 136 - 145 mmol/L 11/09/2022 12:23 AM T [facility] Potassium 3.9 3.5 - 4.5 mmol/L 11/09/2022 12:23 AM T [facility] Chloride 107 98 - 107 mmol/L 11/09/2022 12:23 AM T [facility] CO2 24 22 - 29 mmol/L 11/09/2022 12:23 AM [facility] Glucose 107 70 - 115 mg/dL 11/09/2022 12:23 AM [facility] Calcium 8.5 8.4 - 10.2 mg/dL 11/09/2022 12:23 AM [facility] Anion Gap 14 8 - 18 11/09/2022 12:23 AM [facility] BUN/Creatinine Ratio 20 7 - 23 11/09/2022 12:23 AM [facility] Osmolality Calculated 291 270 - 300 mOsm/kg 11/09/2022 12:23 AM [facility] eGFR by CKD-EPI >90 >=90 mL/min/1.7 3 m2 11/09/2022 12:23 AM [facility] Blood BLOOD SPECIMEN / Unknown Lab Venipuncture / Unknown 11/08/2022 11:46 PM CDT 11/08/2022 11:57 PM CDT Emir Vail MD LAB - [facility]Y [facility] Organization Address City/State/ZIP Co de Phone Number [facility] [address] [place] [address] [phone] * (ABNORMAL) CBC W AUTO DIFFERENTIAL (11/08/2022 11:46 PM CDT) WBC 5.2 3.5 - 10.5 10? 3 /uL 11/09/2022 12:10 AM [facility] RBC 3.59(L) 3.80 - 5.20 10? 6 /uL 11/09/2022 12:10 AM [facility] Hemoglobin 10.4(L) 12.0 - 15.6 g/dL 11/09/2022 12:10 AM [facility] Hematocrit 33.1(L) 35.0 - 45.0 % 11/09/2022 12:10 AM [facility] MCV 92.2 80.7 - 98.3 fL 11/09/2022 12:10 AM [facility] MCH 29.0 26.7 - 34.0 pg 11/09/2022 12:10 AM [facility] MCHC 31.4 30.8 - 35.9 g/dL 11/09/2022 12:10 AM [facility] RDW-SD 48.2 36.0 - 50.0 fL 11/09/2022 12:10 AM [facility] RDW-CV 14.2 11.2 - 14.8 % 11/09/2022 12:10 AM [facility] Platelet Count 360 150 - 400 10? 3 /uL 11/09/2022 12:10 AM [facility] MPV 10.7 9.4 - 12.9 fL 11/09/2022 12:10 AM [facility] nRBC Absolute 0.00 0 10? 3 /uL 11/09/2022 12:10 AM [facility] nRBC Auto 0.0 0 /100 WBC 11/09/2022 12:10 AM [facility] Neutrophils % 58.8 35.0 - 70.0 % 11/09/2022 12:10 AM [facility] Lymphocytes % 24.8 20.0 - 43.0 % 11/09/2022 12:10 AM [facility] Monocytes % 12.1 5.0 - 13.0 % 11/09/2022 12:10 AM [facility] Eosinophils % 2.9 0.0 - 6.0 % 11/09/2022 12:10 AM [facility] Basophil % 0.4 0.0 - 2.0 % 11/09/2022 12:10 AM [facility] Neutrophils Absolute 3.07 1.60 - 7.00 10? 3 /uL 11/09/2022 12:10 AM [facility] Lymphocyte Absolute 1.29 1.10 - 3.90 10? 3 /uL 11/09/2022 12:10 AM [facility] Monocytes Absolute 0.63 0.26 - 1.07 10? 3 /uL 11/09/2022 12:10 AM [facility] Eosinophils Absolute 0.15 0.00 - 0.47 10? 3 /uL 11/09/2022 12:10 AM [facility] Basophils Absolute 0.02 0.00 - 0.08 10? 3 /uL 11/09/2022 12:10 AM CDT [facility] Immature Granulocytes % 1.0 0.0 - 1.0 % 11/09/2022 12:10 AM CDT [facility] Immature Granulocytes Absolute 0.05 11/09/2022 12:10 AM CDT [facility] Blood BLOOD SPECIMEN / Unknown Lab Venipuncture / Unknown 11/08/2022 11:46 PM CDT 11/08/2022 11:57 PM CDT Emir Vail MD LAB - HEMATOLOGY ORD DIMAS [address] [address], [place] [phone] * PHOSPHORUS BLOOD (11/08/2022 11:46 PM CDT) Phosphorus 3.8 2.9 - 5.1 mg/dL 11/09/2022 12:23 AM CDT [facility] Blood BLOOD SPECIMEN / Unknown Lab Venipuncture / Unknown 11/08/2022 11:46 PM CDT 11/08/2022 11:57 PM CDT Emir Vail MD LAB - CHEMISTRY BIBIANA BLACKMAN Performing Organization Address [facility]/ZIP Co de Phone Number [address] [address], [place] [phone] * MAGNESIUM BLOOD (11/08/2022 11:46 PM CDT) Magnesium 2.0 1.6 - 2.6 mg/dL 11/09/2022 12:23 AM CDT [facility] Blood BLOOD SPECIMEN / Unknown Lab Venipuncture / Unknown 11/08/2022 11:46 PM CDT 11/08/2022 11:57 PM CDT Emir Vail MD LAB - CHEMISTRY BIBIANA BLACKMAN [address] [address], [place] [phone] * VAS BILATERAL VENOUS DUPLEX LE (11/08/2022 [...] VASCULAR LAB ORDERAB LES * (ABNORMAL) PT-INR [facility] (11/08/2022 2:54 AM CDT) PT 18.3(H) 12.1 - 14.8 Seconds 11/08/2022 4:34 AM CDT [facility] INR 1.6 See Comment 11/08/2022 4:34 AM CDT [facility] Comment:The suggested therap eutic range for standard coumadin (warfarin) therapy is an INR of 2.0-3.0. For high-risk patients (Mechanical Mitral Valve Prosthesis, etc.), the suggested prophylactic therapeutic range is an INR of 2.5-3.5. Blood BLOOD SPECIMEN / Unknown Lab Venipuncture / Unknown 11/08/2022 2:54 AM CDT 11/08/2022 3:41 AM CDT Emir Vail MD LAB - COAGULATION OR DERABLES [facility] [address] [place] [address], [facility] [phone] * (ABNORMAL) BASIC METABOLIC PANEL (CALCIUM TOTAL) (11/07/2022 10:34 PM CDT) BUN 8 7 - 26 mg/dL 11/08/2022 12:05 AM [facility] Creatinine 0.53(L) 0.56 - 0.96 mg/dL 11/08/2022 12:05 AM [facility] Sodium 141 136 - 145 mmol/L 11/08/2022 12:05 AM [facility] Potassium 3.6 3.5 - 4.5 mmol/L 11/08/2022 12:05 AM [facility] Chloride 108(H) 98 - 107 mmol/L 11/08/2022 12:05 AM [facility] CO2 22 22 - 29 mmol/L 11/08/2022 12:05 AM [facility] Glucose 107 70 - 115 mg/dL 11/08/2022 12:05 AM [facility] Calcium 8.6 8.4 - 10.2 mg/dL 11/08/2022 12:05 AM [facility] Anion Gap 15 8 - 18 11/08/2022 12:05 AM [facility] BUN/Creatinine Ratio 15 7 - 23 11/08/2022 12:05 AM [facility] Osmolality Calculated 291 270 - 300 mOsm/kg 11/08/2022 12:05 AM [facility] eGFR by CKD-EPI >90 >=90 mL/min/1.7 3 m2 11/08/2022 12:05 AM [facility] Blood BLOOD SPECIMEN / Unknown Lab Venipuncture / Unknown 11/07/2022 10:34 PM CDT 11/07/2022 11:34 PM CDT Emir Vail MD LAB - CHEMISTRY [facility] Organization Address City/State/ZIP Co de Phone Number [facility] [address] [place] [address], [facility] [phone] * (ABNORMAL) CBC W AUTO DIFFERENTIAL (11/07/2022 10:34 PM CDT) WBC 4.7 3.5 - 10.5 10? 3 /uL 11/07/2022 11:51 PM [facility] RBC 3.18(L) 3.80 - 5.20 10? 6 /uL 11/07/2022 11:51 PM [facility] Hemoglobin 9.2(L) 12.0 - 15.6 g/dL 11/07/2022 11:51 PM [facility] Hematocrit 29.5(L) 35.0 - 45.0 % 11/07/2022 11:51 PM [facility] MCV 92.8 80.7 - 98.3 fL 11/07/2022 11:51 PM [facility] MCH 28.9 26.7 - 34.0 pg 11/07/2022 11:51 PM [facility] MCHC 31.2 30.8 - 35.9 g/dL 11/07/2022 11:51 PM [facility] RDW-SD 47.8 36.0 - 50.0 fL 11/07/2022 11:51 PM [facility] RDW-CV 14.1 11.2 - 14.8 % 11/07/2022 11:51 PM [facility] Platelet Count 325 150 - 400 10? 3 /uL 11/07/2022 11:51 PM [facility] MPV 11.0 9.4 - 12.9 fL 11/07/2022 11:51 PM [facility] nRBC Absolute 0.00 0 10? 3 /uL 11/07/2022 11:51 PM [facility] nRBC Auto 0.0 0 /100 WBC 11/07/2022 11:51 PM [facility] Neutrophils % 57.5 35.0 - 70.0 % 11/07/2022 11:51 PM [facility] Lymphocytes % 29.9 20.0 - 43.0 % 11/07/2022 11:51 PM [facility] Monocytes % 10.7 5.0 - 13.0 % 11/07/2022 11:51 PM [facility] Eosinophils % 1.3 0.0 - 6.0 % 11/07/2022 11:51 PM [facility] Basophil % 0.2 0.0 - 2.0 % 11/07/2022 11:51 PM CDT [facility] Neutrophils Absolute 2.70 1.60 - 7.00 10? 3 /uL 11/07/2022 11:51 PM CDT [facility] Lymphocyte Absolute 1.40 1.10 - 3.90 10? 3 /uL 11/07/2022 11:51 PM CDT [facility] Monocytes Absolute 0.50 0.26 - 1.07 10? 3 /uL 11/07/2022 11:51 PM CDT [facility] Eosinophils Absolute 0.06 0.00 - 0.47 10? 3 /uL 11/07/2022 11:51 PM CDT [facility] Basophils Absolute 0.01 0.00 - 0.08 10? 3 /uL 11/07/2022 11:51 PM CDT [facility] Immature Granulocytes % 0.4 0.0 - 1.0 % 11/07/2022 11:51 PM CDT [facility] Immature Granulocytes Absolute 0.02 11/07/2022 11:51 PM CDT [facility] Blood BLOOD SPECIMEN / Unknown Lab Venipuncture / Unknown 11/07/2022 10:34 PM CDT 11/07/2022 11:34 PM CDT Emir Vail MD LAB - HEMATOLOGY ORD ERABLES [address] [address], [facility] [phone] * PHOSPHORUS BLOOD (11/07/2022 10:34 PM CDT) Phosphorus 4.3 2.9 - 5.1 mg/dL 11/08/2022 12:05 AM CDT [facility] Blood BLOOD SPECIMEN / Unknown Lab Venipuncture / Unknown 11/07/2022 10:34 PM CDT 11/07/2022 11:34 PM CDT Emir Vail MD LAB - CHEMISTRY ORDE HIRAL [address] [address], [facility] [phone] * (ABNORMAL) MAGNESIUM BLOOD (11/07/2022 10:34 PM CDT) Magnesium 2.8(H) 1.6 - 2.6 mg/dL 11/08/2022 12:05 AM CDT [facility] Blood BLOOD SPECIMEN / Unknown Lab Venipuncture / Unknown 11/07/2022 10:34 PM CDT 11/07/2022 11:34 PM CDT Emir Vail MD LAB - CHEMISTRY ORDE HIRAL [facility] [address] [place] [address], [facility] [facility] [phone] * CT ANGIO CHEST PULM EMBOLISM (11/07/2022 5:22 PM CDT) Anatomical Region Laterality Modality Chest Computed Tomogra phy 11/07/2022 5:34 PM CDT Impressions 11/07/2022 10:30 PM CDT Impression: 1.No evidence of acute pulmonary embolism. There is no radiographic evidence of right heart strain. 2.No other acute process within the chest. > Dictated by Tim Major MD (residential installer). I, Alexx Lopez have personally reviewed and interpreted this examination/study. > Interpreting Provider: Alexx Lopez on 11/07/2022 10:30 PM Narrative 11/07/2022 10:30 PM CDT PROCEDURE: ??CT ANGIO CHEST PULM EMBOLISM, DATE/TIME OF EXAM: ??11/07/2022 5:25 PM, LOCATION ??[facility] INDICATION: R50.9: Fever, unspecified fever cause [...] DATE/TIME OF EXAM: 11/07/2022 5:25 PM, LOCATION [facility] INDICATION: R50.9: Fever, unspecified fever cause [...] > Dictated by Tim Major MD (residential installer). IAlexx have personally reviewed and interpreted this examination/study. > Interpreting Provider: Alexx Lopez on 11/07/2022 10:30 PM Jaime Drew MD CT ORDERABLES * (ABNORMAL) PT-INR [facility] (11/07/2022 3:05 AM CDT) Pathologist [facility] [place] PT 18.4(H) 12.1 - 14.8 Seconds 11/07/2022 4:26 AM CDT [facility] INR 1.6 See Comment 11/07/2022 4:26 AM CDT [facility] Comment:The suggested therap eutic range for standard coumadin (warfarin) therapy is an INR of 2.0-3.0. For high-risk patients (Mechanical Mitral Valve Prosthesis, etc.), the suggested prophylactic therapeutic range is an INR of 2.5-3.5. Blood BLOOD SPECIMEN / Unknown Lab Venipuncture / Unknown 11/07/2022 3:05 AM CDT 11/07/2022 3:51 AM CDT Emir Vail MD LAB - COAGULATION OR DERABLES Performing Organization Address City/[facility]/ZIP Co de Phone Number [address] [address], [facility] [phone] * (ABNORMAL) PTT [facility] (11/06/2022 11:12 PM CDT) [facility] APTT 63.4(H) 23.0 - 38.4 Seconds 11/07/2022 12:00 AM CDT [facility] Comment:Suggested therapeuti c range for full dose I.V. unfractionated heparin therapy for venous thromboembolism is 71 to 109 seconds. Blood BLOOD SPECIMEN / Unknown Lab Venipuncture / Unknown 11/06/2022 11:12 PM CDT 11/06/2022 11:42 PM CDT Jaime Drew MD LAB - COAGULATION OR DERABLES [address] [address], [place] [phone] * (ABNORMAL) BASIC METABOLIC PANEL (CALCIUM TOTAL) (11/06/2022 11:12 PM CDT) [facility] BUN 8 7 - 26 mg/dL 11/07/2022 12:13 AM [facility] Creatinine 0.46(L) 0.56 - 0.96 mg/dL 11/07/2022 12:13 AM [facility] Sodium 140 136 - 145 mmol/L 11/07/2022 12:13 AM [facility] Potassium 3.6 3.5 - 4.5 mmol/L 11/07/2022 12:13 AM [facility] Chloride 108(H) 98 - 107 mmol/L 11/07/2022 12:13 AM [facility] CO2 22 22 - 29 mmol/L 11/07/2022 12:13 AM [facility] Glucose 107 70 - 115 mg/dL 11/07/2022 12:13 AM [facility] Calcium 8.5 8.4 - 10.2 mg/dL 11/07/2022 12:13 AM [facility] Anion Gap 14 8 - 18 11/07/2022 12:13 AM [facility] BUN/Creatinine Ratio 17 7 - 23 11/07/2022 12:13 AM [facility] Osmolality Calculated 289 270 - 300 mOsm/kg 11/07/2022 12:13 AM [facility] eGFR by CKD-EPI >90 >=90 mL/min/1.7 3 m2 11/07/2022 12:13 AM [facility] Blood BLOOD SPECIMEN / Unknown Lab Venipuncture / Unknown 11/06/2022 11:12 PM CDT 11/06/2022 11:44 PM CDT Emir Vail MD LAB - CHEMISTRY [place] BLACKMAN [facility] [address] [place] [address], [facility] [phone] * (ABNORMAL) CBC W AUTO DIFFERENTIAL (11/06/2022 11:12 PM CDT) Pathologist [facility] [place] WBC 4.7 3.5 - 10.5 10? 3 /uL 11/06/2022 11:51 PM [facility] RBC 3.20(L) 3.80 - 5.20 10? 6 /uL 11/06/2022 11:51 PM [facility] Hemoglobin 9.3(L) 12.0 - 15.6 g/dL 11/06/2022 11:51 PM [facility] Hematocrit 29.5(L) 35.0 - 45.0 % 11/06/2022 11:51 PM [facility] MCV 92.2 80.7 - 98.3 fL 11/06/2022 11:51 PM [facility] MCH 29.1 26.7 - 34.0 pg 11/06/2022 11:51 PM [facility] MCHC 31.5 30.8 - 35.9 g/dL 11/06/2022 11:51 PM [facility] RDW-SD 47.7 36.0 - 50.0 fL 11/06/2022 11:51 PM [facility] RDW-CV 14.1 11.2 - 14.8 % 11/06/2022 11:51 PM [facility] Platelet Count 195 150 - 400 10? 3 /uL 11/06/2022 11:51 PM [facility] MPV 11.8 9.4 - 12.9 fL 11/06/2022 11:51 PM [facility] nRBC Absolute 0.00 0 10? 3 /uL 11/06/2022 11:51 PM [facility] nRBC Auto 0.0 0 /100 WBC 11/06/2022 11:51 PM [facility] Neutrophils % 47.0 35.0 - 70.0 % 11/06/2022 11:51 PM [facility] Lymphocytes % 36.7 20.0 - 43.0 % 11/06/2022 11:51 PM [facility] Monocytes % 11.9 5.0 - 13.0 % 11/06/2022 11:51 PM [facility] Eosinophils % 3.2 0.0 - 6.0 % 11/06/2022 11:51 PM [facility] Basophil % 0.4 0.0 - 2.0 % 11/06/2022 11:51 PM [facility] Neutrophils Absolute 2.21 1.60 - 7.00 10? 3 /uL 11/06/2022 11:51 PM CDT [facility] Lymphocyte Absolute 1.73 1.10 - 3.90 10? 3 /uL 11/06/2022 11:51 PM CDT [facility] Monocytes Absolute 0.56 0.26 - 1.07 10? 3 /uL 11/06/2022 11:51 PM CDT [facility] Eosinophils Absolute 0.15 0.00 - 0.47 10? 3 /uL 11/06/2022 11:51 PM CDT [facility] Basophils Absolute 0.02 0.00 - 0.08 10? 3 /uL 11/06/2022 11:51 PM CDT [facility] Immature Granulocytes % 0.8 0.0 - 1.0 % 11/06/2022 11:51 PM CDT [facility] Immature Granulocytes Absolute 0.04 11/06/2022 11:51 PM CDT [facility] Blood BLOOD SPECIMEN / Unknown Lab Venipuncture / Unknown 11/06/2022 11:12 PM CDT 11/06/2022 11:44 PM CDT Emir Vail MD LAB - HEMATOLOGY ORD DIMAS [address] [address], [facility] [phone] * PHOSPHORUS BLOOD (11/06/2022 11:12 PM CDT) Phosphorus 4.3 2.9 - 5.1 mg/dL 11/07/2022 12:13 AM CDT [facility] Blood BLOOD SPECIMEN / Unknown Lab Venipuncture / Unknown 11/06/2022 11:12 PM CDT 11/06/2022 11:44 PM CDT Emir Vail MD LAB - CHEMISTRY ORDE HIRAL [address] [address], [place] [phone] * MAGNESIUM BLOOD (11/06/2022 11:12 PM CDT) Pathologist [facility] [place] Magnesium 2.0 1.6 - 2.6 mg/dL 11/07/2022 12:13 AM CDT [facility] Blood BLOOD SPECIMEN / Unknown Lab Venipuncture / Unknown 11/06/2022 11:12 PM CDT 11/06/2022 11:44 PM CDT Emir Vail MD LAB - CHEMISTRY ORDDanyelle BLACKMAN Performing Organization Address City/[facility]/ZIP Co de Phone Number [facility] [address] [place] [address], [place] [phone] * (ABNORMAL) PTT [facility] (11/06/2022 6:30 PM CDT) [facility] APTT 68.6(H) 23.0 - 38.4 Seconds 11/06/2022 7:03 PM CDT [facility] Comment:Suggested therapeuti c range for full dose I.V. unfractionated heparin therapy for venous thromboembolism is 71 to 109 seconds. Blood BLOOD SPECIMEN / Unknown Lab Venipuncture / Unknown 11/06/2022 6:30 PM CDT 11/06/2022 6:33 PM CDT Jaime Drew MD LAB - COAGULATION OR DERABLES Performing Organization Address [facility]/ZIP Co de Phone Number [address] [address], [place] [phone] * ECHO COMPLETE W CONTRAST (11/06/2022 1:49 PM CDT) Pathologist [facility] BSA [id number] m2 [facility] CV FUJ I PACS LV [...] PACS MV DT 168 ms [facility] CV [facility] I PACS MV E' septal arianna 10.702 cm/s [facility] CV FUJI PACS MV A duration 122 ms [facility] E/e' septal 9.596 [facility] C V FUJI PACS MV E/e' lateral 7.262 [facility] TR pk arianna 224.0 cm/s [facility] CV [facility] I PACS LVOT pk arianna 0.91 m/s [facility] CV F UJI PACS LVOT mn arianna 0.54 m/s [facility] CV F UJI PACS LVOT mn grad 1.4 mmHg [facility] Cardiac Output 4.588 l/min [facility] CV FUJI PACS LVOT Cardiac Index 2.17 l/min/m2 [facility] CV FUJI PACS LA vol BP A-L 54.925 mL [facility] RV-mahmood basal diam 3.2 2.5 - 4.1 cm [facility]-mahmood longitudinal diam 8.8 5.9 - 8.3 cm [facility] RVIDd 3.0 cm [facility] CV [facility] I PACS RVOT VTI 17.595 cm [facility] CV [facility] I PACS TAPSE 2.324 1.7 cm [facility] CV [facility] I PACS RVOT pk arianna 0.85 m/s [facility] CV F UJI PACS RA area 19.252 cm2 [facility] CV [facility] I PACS AV mn grad 5 [...] HR 153 [facility] CV FUJ I PACS [id number] 6.938 cm [facility] CV FUJ I PACS [id number] 6.869 cm [facility] CV FUJ I PACS [...] CV FUJ I PACS TV pk arianna [phone] [id number] cm/s S[facility] CV FUJI PACS TV mn [...] Drew MD ECHO CUPID * (ABNORMAL) PTT [facility] (11/06/2022 7:40 AM CDT) APTT 97.1(H) 23.0 - 38.4 Seconds 11/06/2022 8:29 AM CDT [facility] Comment:Suggested therapeuti c range for full dose I.V. unfractionated heparin therapy for venous thromboembolism is 71 to 109 seconds. Blood BLOOD SPECIMEN / Unknown Lab Venipuncture / Unknown 11/06/2022 7:40 AM CDT 11/06/2022 8:12 AM CDT Jaime Drew MD LAB - COAGULATION OR DERABLES [facility] [address] [place] [address], [facility] [phone] * (ABNORMAL) PT-INR [facility] (11/06/2022 1:36 AM CDT) PT 17.1(H) 12.1 - 14.8 Seconds 11/06/2022 1:58 AM CDT [facility] INR 1.4 See Comment 11/06/2022 1:58 AM CDT [facility] Comment:The suggested therap eutic range for standard coumadin (warfarin) therapy is an INR of 2.0-3.0. For high-risk patients (Mechanical Mitral Valve Prosthesis, etc.), the suggested prophylactic therapeutic range is an INR of 2.5-3.5. Blood BLOOD SPECIMEN / Unknown Venipuncture / Unknown 11/06/2022 1:36 AM CDT 11/06/2022 1:39 AM CDT Emir Vail MD LAB - COAGULATION OR DERABLES Performing Organization Address [facility] Co de Phone Number [address] [address], [facility] [phone] * (ABNORMAL) PTT [facility] (11/06/2022 1:36 AM CDT) APTT 100.4(HH) 23.0 - 38.4 Seconds 11/06/2022 1:58 AM CDT [facility] Comment:Suggested therapeuti c range for full dose I.V. unfractionated heparin therapy for venous thromboembolism is 71 to 109 seconds. Blood BLOOD SPECIMEN / Unknown Venipuncture / Unknown 11/06/2022 1:36 AM CDT 11/06/2022 1:39 AM CDT Jaime Drew MD LAB - COAGULATION OR DERABLES Performing Organization Address [facility] Co de Phone Number [address] [address], [facility] [phone] * (ABNORMAL) BASIC METABOLIC PANEL (CALCIUM TOTAL) (11/06/2022 1:36 AM CDT) BUN 8 7 - 26 mg/dL 11/06/2022 2:10 AM CDT [facility] Creatinine 0.56 0.56 - 0.96 mg/dL 11/06/2022 2:10 AM CDT [facility] Sodium 139 136 - 145 mmol/L 11/06/2022 2:10 AM CDT [facility] Potassium 3.5 3.5 - 4.5 mmol/L 11/06/2022 2:10 AM [facility] Chloride 111(H) 98 - 107 mmol/L 11/06/2022 2:10 AM [facility] CO2 21(L) 22 - 29 mmol/L 11/06/2022 2:10 AM [facility] Glucose 144(H) 70 - 115 mg/dL 11/06/2022 2:10 AM [facility] Calcium 8.3(L) 8.4 - 10.2 mg/dL 11/06/2022 2:10 AM [facility] Anion Gap 11 8 - 18 11/06/2022 2:10 AM [facility] BUN/Creatinine Ratio 14 7 - 23 11/06/2022 2:10 AM [facility] Osmolality Calculated 289 270 - 300 mOsm/kg 11/06/2022 2:10 AM [facility] eGFR by CKD-EPI >90 >=90 mL/min/1.7 3 m2 11/06/2022 2:10 AM [facility] Blood BLOOD SPECIMEN / Unknown Venipuncture / Unknown 11/06/2022 1:36 AM CDT 11/06/2022 1:42 AM T Emir Vail MD LAB - CHEMISTRY [facility] Organization Address [facility]/State/[facility] Co de Phone Number [facility] [address] [place] [address], [facility] [phone] * (ABNORMAL) CBC W AUTO DIFFERENTIAL (11/06/2022 1:36 AM CDT) WBC 6.5 3.5 - 10.5 10? 3 /uL 11/06/2022 1:52 AM [facility] RBC 3.42(L) 3.80 - 5.20 10? 6 /uL 11/06/2022 1:52 AM [facility] Hemoglobin 10.0(L) 12.0 - 15.6 g/dL 11/06/2022 1:52 AM [facility] Hematocrit 32.8(L) 35.0 - 45.0 % 11/06/2022 1:52 AM [facility] MCV 95.9 80.7 - 98.3 fL 11/06/2022 1:52 AM [facility] MCH 29.2 26.7 - 34.0 pg 11/06/2022 1:52 AM [facility] MCHC 30.5(L) 30.8 - 35.9 g/dL 11/06/2022 1:52 AM [facility] RDW-SD 49.5 36.0 - 50.0 fL 11/06/2022 1:52 AM [facility] RDW-CV 14.2 11.2 - 14.8 % 11/06/2022 1:52 AM [facility] Platelet Count 155 150 - 400 10? 3 /uL 11/06/2022 1:52 AM [facility] MPV 10.9 9.4 - 12.9 fL 11/06/2022 1:52 AM [facility] nRBC Absolute 0.00 0 10? 3 /uL 11/06/2022 1:52 AM [facility] nRBC Auto 0.0 0 /100 WBC 11/06/2022 1:52 AM [facility] Neutrophils % 71.1(H) 35.0 - 70.0 % 11/06/2022 1:52 AM [facility] Lymphocytes % 19.0(L) 20.0 - 43.0 % 11/06/2022 1:52 AM [facility] Monocytes % 8.0 5.0 - 13.0 % 11/06/2022 1:52 AM [facility] Eosinophils % 0.5 0.0 - 6.0 % 11/06/2022 1:52 AM [facility] Basophil % 0.5 0.0 - 2.0 % 11/06/2022 1:52 AM [facility] Neutrophils Absolute 4.65 1.60 - 7.00 10? 3 /uL 11/06/2022 1:52 AM [facility] Lymphocyte Absolute 1.24 1.10 - 3.90 10? 3 /uL 11/06/2022 1:52 AM [facility] Monocytes Absolute 0.52 0.26 - 1.07 10? 3 /uL 11/06/2022 1:52 AM CDT [facility] Eosinophils Absolute 0.03 0.00 - 0.47 10? 3 /uL 11/06/2022 1:52 AM CDT [facility] Basophils Absolute 0.03 0.00 - 0.08 10? 3 /uL 11/06/2022 1:52 AM CDT [facility] Immature Granulocytes % 0.9 0.0 - 1.0 % 11/06/2022 1:52 AM CDT [facility] Immature Granulocytes Absolute 0.06 11/06/2022 1:52 AM CDT [facility] Blood BLOOD SPECIMEN / Unknown Venipuncture / Unknown 11/06/2022 1:36 AM CDT 11/06/2022 1:42 AM CDT Emir Vail MD LAB - HEMATOLOGY ORD ERABLES Performing Organization Address City/[facility]/ZIP Co de Phone Number [address] [address], [facility] [phone] * PHOSPHORUS BLOOD (11/06/2022 1:36 AM CDT) Phosphorus 3.6 2.9 - 5.1 mg/dL 11/06/2022 2:10 AM CDT [facility] Blood BLOOD SPECIMEN / Unknown Venipuncture / Unknown 11/06/2022 1:36 AM CDT 11/06/2022 1:42 AM CDT Emir Vail MD LAB - CHEMISTRY ORDE HIRAL [address] [address], [facility] [phone] * MAGNESIUM BLOOD (11/06/2022 1:36 AM CDT) Magnesium 2.0 1.6 - 2.6 mg/dL 11/06/2022 2:10 AM CDT [facility] Blood BLOOD SPECIMEN / Unknown Venipuncture / Unknown 11/06/2022 1:36 AM CDT 11/06/2022 1:42 AM CDT Emir Vail MD LAB - CHEMISTRY [facility] Performing Organization Address City/[facility]/ZIP Co de Phone Number [address] [address], [facility] [phone] * (ABNORMAL) C-REACTIVE PROTEIN (11/06/2022 1:36 AM CDT) C-Reactive Protein 7.1(H) <=0.5 mg/dL 11/06/2022 2:08 AM CDT [facility] Blood BLOOD SPECIMEN / Unknown Venipuncture / Unknown 11/06/2022 1:36 AM CDT 11/06/2022 1:40 AM CDT Jaime Drew MD LAB - CHEMISTRY BIBIANA BLACKMAN Performing Organization Address [facility]/ZIP Co de Phone Number [address] [address], [facility] [phone] * (ABNORMAL) CBC W AUTO DIFFERENTIAL (11/06/2022 1:36 AM CDT) Pathologist [facility] WBC 7.9 3.5 - 10.5 10? 3 /uL 11/06/2022 1:45 AM [facility] RBC 3.28(L) 3.80 - 5.20 10? 6 /uL 11/06/2022 1:45 AM [facility] Hemoglobin 9.7(L) 12.0 - 15.6 g/dL 11/06/2022 1:45 AM [facility] Hematocrit 30.2(L) 35.0 - 45.0 % 11/06/2022 1:45 AM [facility] MCV 92.1 80.7 - 98.3 fL 11/06/2022 1:45 AM [facility] MCH 29.6 26.7 - 34.0 pg 11/06/2022 1:45 AM [facility] MCHC 32.1 30.8 - 35.9 g/dL 11/06/2022 1:45 AM [facility] RDW-SD 47.8 36.0 - 50.0 fL 11/06/2022 1:45 AM [facility] RDW-CV 14.2 11.2 - 14.8 % 11/06/2022 1:45 AM [facility] Platelet Count 247 150 - 400 10? 3 /uL 11/06/2022 1:45 AM [facility] MPV 10.7 9.4 - 12.9 fL 11/06/2022 1:45 AM [facility] nRBC Absolute 0.00 0 10? 3 /uL 11/06/2022 1:45 AM [facility] nRBC Auto 0.0 0 /100 WBC 11/06/2022 1:45 AM [facility] Neutrophils % 70.9(H) 35.0 - 70.0 % 11/06/2022 1:45 AM [facility] Lymphocytes % 17.4(L) 20.0 - 43.0 % 11/06/2022 1:45 AM [facility] Monocytes % 9.8 5.0 - 13.0 % 11/06/2022 1:45 AM [facility] Eosinophils % 0.4 0.0 - 6.0 % 11/06/2022 1:45 AM [facility] Basophil % 0.4 0.0 - 2.0 % 11/06/2022 1:45 AM [facility] Neutrophils Absolute 5.62 1.60 - 7.00 10? 3 /uL 11/06/2022 1:45 AM [facility] Lymphocyte Absolute 1.38 1.10 - 3.90 10? 3 /uL 11/06/2022 1:45 AM [facility] Monocytes Absolute 0.78 0.26 - 1.07 10? 3 /uL 11/06/2022 1:45 AM [facility] Eosinophils Absolute 0.03 0.00 - 0.47 10? 3 /uL 11/06/2022 1:45 AM [facility] Basophils Absolute 0.03 0.00 - 0.08 10? 3 /uL 11/06/2022 1:45 AM [facility] Immature Granulocytes % 1.1(H) 0.0 - 1.0 % 11/06/2022 1:45 AM CDT [facility] Immature Granulocytes Absolute 0.09 11/06/2022 1:45 AM CDT [facility] Blood BLOOD SPECIMEN / Unknown Venipuncture / Unknown 11/06/2022 1:36 AM CDT 11/06/2022 1:42 AM CDT Jaime Drew MD LAB - HEMATOLOGY ORD ERABLES Performing Organization Address [facility]/ZIP Co de Phone Number [address] [address], [facility] [phone] * TSH REFLEX FREE T4 (11/06/2022 1:36 AM CDT) TSH 1.682 0.350 - 4.940 uIU/mL 11/06/2022 2:28 AM CDT [facility] Blood BLOOD SPECIMEN / Unknown Venipuncture / Unknown 11/06/2022 1:36 AM CDT 11/06/2022 1:42 AM CDT Jaiem Drew MD LAB - CHEMISTRY ORDE RABLES Performing Organization Address [facility]/ZIP Co de Phone Number [address] [address], [facility] [phone] * (ABNORMAL) D-DIMER (11/06/2022 1:36 AM CDT) D-Dimer Quantitative 2.30(H) <=0.50 mcg/mL FEU 11/06/2022 1:54 AM CDT [facility] Comment: In the absence of clinical symptoms, [...] - COAGULATION OR DERABLES Performing Organization Address City/[facility] Co de Phone Number [address] [address], [facility] [phone] * XR ABDOMEN KUB PORTABLE (11/05/2022 5:28 PM CDT) Anatomical Region Laterality Modality Abdomen Radiographic Irene ging 11/06/2022 7:14 AM CDT Impressions 11/06/2022 10:30 PM CDT IMPRESSION: Non-obstructive bowel gas pattern. Report dictated by Mc Castro MD, (residential installer). I, Pepe Gonzalez MD have personally reviewed and interpreted this examination/study. > Interpreting Provider: Pepe Gonzalez MD on 11/06/2022 10:30 PM Narrative 11/06/2022 10:30 PM CDT PROCEDURE: ??XR ABDOMEN KUB PORTABLE, DATE/TIME OF EXAM: ??11/05/2022 5:28 PM, LOCATION ??[facility] INDICATION: R50.9: Fever, unspecified fever cause [...] PORTABLE, DATE/TIME OF EXAM: 11/05/2022 5:28PM, LOCATION [facility] INDICATION: R50.9: Fever, unspecified fever cause [...] Report dictated by Mc Castro MD, (residential installer). I, Pepe Gonzalez MD have personally reviewed and interpreted this examination/study. > Interpreting Provider: Pepe Gonzalez MD on 11/06/2022 10:30 PM Jaime Drew MD DIAGNOSTIC IMAGING O RDERABLES * PTT [facility] (11/05/2022 4:58 PM CDT) Pathologist [facility] [place] APTT 27.5 23.0 - 38.4 Seconds 11/05/2022 5:29 PM CDT [facility] Comment:Suggested therapeuti c range for full dose I.V. unfractionated heparin therapy for venous thromboembolism is 71 to 109 seconds. Blood BLOOD SPECIMEN / Unknown Venipuncture / Unknown 11/05/2022 4:58 PM CDT 11/05/2022 5:03 PM CDT Jaime Drew MD LAB - COAGULATION OR DERABLES [facility] [address] [place] [address], [place] [phone] * RESPIRATORY PANEL WITH SARS-COV-2 BY PCR (STL) (11/05/2022 1:10 PM CDT) [facility] Adenovirus PCR Not detected Not detected 11/05/2022 [...] PM CDT 11/05/2022 1:41 PM CDT Narrative [facility] - 11/05/2022 5:32 PM CDT This nucleic amplification assay has received FDA authorization via the [employer]. Jaime Drew MD LAB - MICROBIOLOGY O DIONI Performing Organization Address [facility] [place]/[facility]/ZIP Co de Phone Number [facility] [address] [place] [address], [facility] [phone] * CULTURE URINE (11/05/2022 1:07 PM CDT) Culture Urine No growth (<100 CFU/mL) ROSELIA 11/06/2022 4:17 PM CDT [facility] Urine URINE SPECIMEN OBTAINED BY SINGLE CATHETERIZATION OF URINARY BLADDER / Unknown Collection / Unknown 11/05/2022 1:07 PM CDT 11/05/2022 1:41 PM CDT Jaime Drew MD LAB - MICROBIOLOGY O DIONI Performing Organization Address [facility] [place]/[facility] Co de Phone Number [facility] [address] [place] [address], [facility] [phone] * (ABNORMAL) URINALYSIS REFLEX TO MICROSCOPIC NO CULTURE (11/05/2022 12:54 PM CDT) Color UA Yellow Straw, Yellow 11/05/2022 1:53 PM CDT [facility] Clarity UA Slt Cloudy(A) Clear 11/05/2022 1:53 PM CDT [facility] Specific [place] UA 1.016 1.005 - 1.030 11/05/2022 1:53 PM CDT [facility] pH UA 7.0 5.0 - 8.0 pH 11/05/2022 1:53 PM CDT [facility] Protein UA Negative Negative 11/05/2022 1:53 PM CDT [facility] Glucose UA Negative Negative 11/05/2022 1:53 PM CDT [facility] Ketone UA Negative Negative 11/05/2022 1:53 PM CDT [facility] Bilirubin UA Negative Negative 11/05/2022 1:53 PM CDT [facility] Blood UA 1+(A) Negative 11/05/2022 1:53 PM CDT [facility] Nitrite UA Negative Negative 11/05/2022 1:53 PM [facility] Leukocyte Esterase Negative Negative 11/05/2022 1:53 PM CDT [facility] Urobilinogen UA Negative Negative mg/dL 11/05/2022 1:53 PM T [facility] RBC UA 51-100(A) None Seen, 0-2, 3-5 /HPF 11/05/2022 1:53 PM CDT [facility] WBC UA 6-10(A) None Seen, 0-5 /HPF 11/05/2022 1:53 PM CDT [facility] [place] Bacteria UA Trace(A) None /HPF 11/05/2022 1:53 PM CDT [facility] Squamous Epithelial Cells UA 0-2 None Seen, 0-2, 3-5 /HPF 11/05/2022 1:53 PM CDT [facility] Mucus UA 1+ /LPF 11/05/2022 1:53 PM CDT [facility] Amorphous Crystals Rare(A) None /HPF 11/05/2022 1:53 PM [facility] Urine URINE SPECIMEN OBTAINED BY SINGLE CATHETERIZATION OF URINARY BLADDER / Unknown Collection / Unknown 11/05/2022 12:54 PM CDT 11/05/2022 1:41 PM CDT Narrative [facility] - 11/05/2022 1:53 PM CDT Jaime Drew MD LAB - URINALYSIS ORD ERABLES [facility] [address] [place] [address], [facility] [phone] * (ABNORMAL) CBC W AUTO DIFFERENTIAL (11/05/2022 12:27 PM CDT) WBC 6.9 3.5 - 10.5 10? 3 /uL 11/05/2022 1:02 PM CDT [facility] RBC 3.24(L) 3.80 - 5.20 10? 6 /uL 11/05/2022 1:02 PM [facility] Hemoglobin 9.7(L) 12.0 - 15.6 g/dL 11/05/2022 1:02 PM [facility] Hematocrit 29.6(L) 35.0 - 45.0 % 11/05/2022 1:02 PM [facility] MCV 91.4 80.7 - 98.3 fL 11/05/2022 1:02 PM [facility] MCH 29.9 26.7 - 34.0 pg 11/05/2022 1:02 PM [facility] MCHC 32.8 30.8 - 35.9 g/dL 11/05/2022 1:02 PM [facility] RDW-SD 47.6 36.0 - 50.0 fL 11/05/2022 1:02 PM [facility] RDW-CV 14.2 11.2 - 14.8 % 11/05/2022 1:02 PM [facility] Platelet Count 344 150 - 400 10? 3 /uL 11/05/2022 1:02 PM [facility] MPV 10.3 9.4 - 12.9 fL 11/05/2022 1:02 PM [facility] nRBC Absolute 0.00 0 10? 3 /uL 11/05/2022 1:02 [facility] nRBC Auto 0.0 0 /100 WBC 11/05/2022 1:02 PM [facility] Neutrophils % 62.1 35.0 - 70.0 % 11/05/2022 1:02 PM [facility] Lymphocytes % 22.5 20.0 - 43.0 % 11/05/2022 1:02 PM [facility] Monocytes % 13.2(H) 5.0 - 13.0 % 11/05/2022 1:02 PM [facility] Eosinophils % 0.9 0.0 - 6.0 % 11/05/2022 1:02 PM [facility] Basophil % 0.6 0.0 - 2.0 % 11/05/2022 1:02 PM [facility] Neutrophils Absolute 4.27 1.60 - 7.00 10? 3 /uL 11/05/2022 1:02 PM [facility] Lymphocyte Absolute 1.55 1.10 - 3.90 10? 3 /uL 11/05/2022 1:02 PM [facility] Monocytes Absolute 0.91 0.26 - 1.07 10? 3 /uL 11/05/2022 1:02 PM [facility] Eosinophils Absolute 0.06 0.00 - 0.47 10? 3 /uL 11/05/2022 1:02 PM [facility] Basophils Absolute 0.04 0.00 - 0.08 10? 3 /uL 11/05/2022 1:02 PM [facility] Immature Granulocytes % 0.7 0.0 - 1.0 % 11/05/2022 1:02 PM [facility] Immature Granulocytes Absolute 0.05 11/05/2022 1:02 PM [facility] Blood BLOOD SPECIMEN / Unknown Venipuncture / Unknown 11/05/2022 12:27 PM CDT 11/05/2022 12:45 PM CDT Emir Vail MD LAB - HEMATOLOGY ORD ERABLES [facility] [address] [place] [address], [facility] [phone] * (ABNORMAL) BASIC METABOLIC PANEL (CALCIUM TOTAL) (11/05/2022 11:24 AM CDT) BUN 8 7 - 26 mg/dL 11/05/2022 11:56 AM [facility] Creatinine 0.54(L) 0.56 - 0.96 mg/dL 11/05/2022 11:56 AM [facility] Sodium 139 136 - 145 mmol/L 11/05/2022 11:56 AM [facility] Potassium 3.8 3.5 - 4.5 mmol/L 11/05/2022 11:56 AM [facility] Chloride 104 98 - 107 mmol/L 11/05/2022 11:56 AM [facility] CO2 23 22 - 29 mmol/L 11/05/2022 11:56 AM [facility] Glucose 101 70 - 115 mg/dL 11/05/2022 11:56 AM [facility] Calcium 8.5 8.4 - 10.2 mg/dL 11/05/2022 11:56 AM [facility] Anion Gap 16 8 - 18 11/05/2022 11:56 AM [facility] BUN/Creatinine Ratio 15 7 - 23 11/05/2022 11:56 AM [facility] Osmolality Calculated 286 270 - 300 mOsm/kg 11/05/2022 11:56 AM [facility] eGFR by CKD-EPI >90 >=90 mL/min/1.7 3 m2 11/05/2022 11:56 AM [facility] Blood BLOOD SPECIMEN / Unknown Venipuncture / Unknown 11/05/2022 11:24 AM CDT 11/05/2022 11:30 AM CDT Emir Vail MD LAB - CHEMISTRY [place] [facility] [address] [address], [facility] [phone] * PHOSPHORUS BLOOD (11/05/2022 11:24 AM CDT) Phosphorus 3.2 2.9 - 5.1 mg/dL 11/05/2022 11:56 AM T [facility] Blood BLOOD SPECIMEN / Unknown Venipuncture / Unknown 11/05/2022 11:24 AM CDT 11/05/2022 11:30 AM CDT Emir Vail MD LAB - CHEMISTRY [place] [address] [address], [facility] [phone] * MAGNESIUM BLOOD (11/05/2022 11:24 AM CDT) Magnesium 2.0 1.6 - 2.6 mg/dL 11/05/2022 11:56 AM T [facility] Blood BLOOD SPECIMEN / Unknown Venipuncture / Unknown 11/05/2022 11:24 AM CDT 11/05/2022 11:30 AM CDT Emir Vail MD LAB - CHEMISTRY [place] [address] [address], [place] [phone] * BLOOD GAS ART+LYTES+METAB+COOX POC NOTIF (11/05/2022 11:16 AM CDT) Comment Notification Label Only - See Separate Report 11/05/2022 2:01 PM CDT [facility] Other MISCELLANEOUS SAMPLES / Unknown 11/05/2022 11:16 AM CDT 11/05/2022 12:52 PM CDT Manuel Ramirez MD LAB - BLOOD GASES ORDERABLES Performing Organization Address [facility] Co de Phone Number [address] [address], [place] [phone] * (ABNORMAL) PTT [facility] (11/05/2022 11:15 AM CDT) APTT 48.8(H) 23.0 - 38.4 Seconds 11/05/2022 12:12 PM CDT [facility] Comment:Suggested therapeuti c range for full dose I.V. unfractionated heparin therapy for venous thromboembolism is 71 to 109 seconds. Blood BLOOD SPECIMEN / Unknown Lab Venipuncture / Unknown 11/05/2022 11:15 AM CDT 11/05/2022 11:23 AM CDT Jaime Drew MD LAB - COAGULATION OR DERABLES Performing Organization Address [facility]/ZIP Co de Phone Number [address] [address], [place] [phone] * CULTURE BLOOD (11/05/2022 10:54 AM CDT) Culture No growth day 5 ROSELIA 11/10/2022 2:00 PM CDT [facility] MICROBIOLOGY Blood PERIPHERAL BLOOD / Unknown Venipuncture / Unknown 11/05/2022 10:54 AM CDT 11/05/2022 11:23 AM CDT Jaime Drew MD LAB - MICROBIOLOGY O RDERABLES [facility] MICROBIOLOG[facility] [address] [place] [phone] * XR CHEST 1VW PORTABLE (11/05/2022 9:37 AM CDT) Anatomical Region Laterality Modality Chest Radiographic Irene ging 11/05/2022 12:2 6 PM CDT Narrative 11/05/2022 2:40 PM CDT PROCEDURE: ??XR CHEST 1VW PORTABLE, DATE/TIME OF EXAM: ??11/05/2022 9:38 AM, LOCATION ??[facility] INDICATION: R50.9: Fever, unspecified fever cause ADDITIONAL CLINICAL INFORMATION: Ordering Provider Reason For Exam: ??consolidation COMPARISON: Chest radiograph 10/29/2022. FINDINGS/IMPRESSION: Previously seen feeding tube has been removed. These no confluent consolidation, pleural effusion, or pneumothorax is noted. The cardiomediastinal silhouette is stable. No acute osseous abnormality is noted. Report dictated by Christopher Tobin MD, (residential installer). I, HEATHER FREGOSO MD have personally reviewed and interpreted this examination/study. > Interpreting Provider: HEATHER FREGOSO MD on 11/05/2022 2:40 PM Procedure Note Heather Fregoso MD - 11/05/2022 PROCEDURE: XR CHEST 1VW PORTABLE, DATE/TIME OF EXAM: 11/05/2022 9:38AM, LOCATION [facility] INDICATION: R50.9: Fever, unspecified fever cause ADDITIONAL CLINICAL INFORMATION: Ordering Provider Reason For Exam: consolidation COMPARISON: Chest radiograph 10/29/2022. FINDINGS/IMPRESSION: Previously seen feeding tube has been removed. These no confluent consolidation, pleural effusion, or pneumothorax is noted. The cardiomediastinal silhouette is stable. No acute osseous abnormality is noted. Report dictated by Christopher Tobin MD, MD (residential installer). I, HEATHER FREGOSO MD have personally reviewed and interpreted this examination/study. > Interpreting Provider: HEATHER FREGOSO MD on 11/05/2022 2:40 PM Jaime Drew MD DIAGNOSTIC IMAGING O RDERABLES * (ABNORMAL) PTT [facility] (11/05/2022 3:50 AM CDT) APTT 77.4(H) 23.0 - 38.4 Seconds 11/05/2022 4:51 AM CDT [facility] Comment:Suggested therapeuti c range for full dose I.V. unfractionated heparin therapy for venous thromboembolism is 71 to 109 seconds. Blood BLOOD SPECIMEN / Unknown Lab Venipuncture / Unknown 11/05/2022 3:50 AM CDT 11/05/2022 4:35 AM CDT Jaime Drew MD LAB - COAGULATION OR DERABLES Performing Organization Address [facility] Co de Phone Number [facility] [address] [place] [phone], [facility] [phone] * (ABNORMAL) PT-INR [facility] (11/05/2022 3:50 AM CDT) PT 15.5(H) 12.1 - 14.8 Seconds 11/05/2022 4:51 AM CDT [facility] INR 1.3 See Comment 11/05/2022 4:51 AM CDT [facility] Comment:The suggested therap eutic range for standard coumadin (warfarin) therapy is an INR of 2.0-3.0. For high-risk patients (Mechanical Mitral Valve Prosthesis, etc.), the suggested prophylactic therapeutic range is an INR of 2.5-3.5. Blood BLOOD SPECIMEN / Unknown Lab Venipuncture / Unknown 11/05/2022 3:50 AM CDT 11/05/2022 4:35 AM CDT Emir Vail MD LAB - COAGULATION OR DERABLES [facility] [address] [place] [address], [facility] [phone] * CT HEAD WO CONTRAST (11/05/2022 12:11 [...] Walter MD CT ORDERABLES * (ABNORMAL) PTT [facility] (11/04/2022 9:28 PM CDT) APTT 53.3(H) 23.0 - 38.4 Seconds 11/04/2022 9:50 PM T [facility] Comment:Suggested therapeuti c range for full dose I.V. unfractionated heparin therapy for venous thromboembolism is 71 to 109 seconds. Blood BLOOD SPECIMEN / Unknown Lab Venipuncture / Unknown 11/04/2022 9:28 PM CDT 11/04/2022 9:32 PM CDT Jim Walter MD LAB - COAGULATION O RDERABLES [facility] [address] [place] [address], [facility] [phone] * (ABNORMAL) BASIC METABOLIC PANEL (CALCIUM TOTAL) (11/04/2022 9:28 PM CDT) Pathologist [facility] BUN 8 7 - 26 mg/dL 11/04/2022 9:57 PM [facility] Creatinine 0.55(L) 0.56 - 0.96 mg/dL 11/04/2022 9:57 PM [facility] Sodium 141 136 - 145 mmol/L 11/04/2022 9:57 PM [facility] Potassium 3.7 3.5 - 4.5 mmol/L 11/04/2022 9:57 PM [facility] Chloride 106 98 - 107 mmol/L 11/04/2022 9:57 PM [facility] CO2 25 22 - 29 mmol/L 11/04/2022 9:57 PM [facility] Glucose 106 70 - 115 mg/dL 11/04/2022 9:57 PM [facility] Calcium 8.3(L) 8.4 - 10.2 mg/dL 11/04/2022 9:57 PM [facility] Anion Gap 14 8 - 18 11/04/2022 9:57 PM [facility] BUN/Creatinine Ratio 15 7 - 23 11/04/2022 9:57 PM [facility] Osmolality Calculated 291 270 - 300 mOsm/kg 11/04/2022 9:57 PM [facility] eGFR by CKD-EPI >90 >=90 mL/min/1.7 3 m2 11/04/2022 9:57 PM [facility] Blood BLOOD SPECIMEN / Unknown Lab Venipuncture / Unknown 11/04/2022 9:28 PM CDT 11/04/2022 9:33 PM CDT Emir Vail MD LAB - CHEMISTRY [facility] [facility] Organization Address City/State/ZIP Co de Phone Number [facility] [address] [place] [address], [facility] [phone] * (ABNORMAL) CBC W AUTO DIFFERENTIAL (11/04/2022 9:28 PM CDT) WBC 8.4 3.5 - 10.5 10? 3 /uL 11/04/2022 9:36 PM [facility] RBC 3.73(L) 3.80 - 5.20 10? 6 /uL 11/04/2022 9:36 PM [facility] Hemoglobin 10.9(L) 12.0 - 15.6 g/dL 11/04/2022 9:36 PM [facility] Hematocrit 34.6(L) 35.0 - 45.0 % 11/04/2022 9:36 PM [facility] MCV 92.8 80.7 - 98.3 fL 11/04/2022 9:36 PM [facility] MCH 29.2 26.7 - 34.0 pg 11/04/2022 9:36 PM [facility] MCHC 31.5 30.8 - 35.9 g/dL 11/04/2022 9:36 PM [facility] RDW-SD 47.6 36.0 - 50.0 fL 11/04/2022 9:36 PM [facility] RDW-CV 14.0 11.2 - 14.8 % 11/04/2022 9:36 PM [facility] Platelet Count 383 150 - 400 10? 3 /uL 11/04/2022 9:36 PM [facility] MPV 9.9 9.4 - 12.9 fL 11/04/2022 9:36 PM [facility] nRBC Absolute 0.00 0 10? 3 /uL 11/04/2022 9:36 PM [facility] nRBC Auto 0.0 0 /100 WBC 11/04/2022 9:36 PM [facility] Neutrophils % 62.2 35.0 - 70.0 % 11/04/2022 9:36 PM [facility] Lymphocytes % 22.7 20.0 - 43.0 % 11/04/2022 9:36 PM [facility] Monocytes % 12.8 5.0 - 13.0 % 11/04/2022 9:36 PM [facility] Eosinophils % 0.7 0.0 - 6.0 % 11/04/2022 9:36 PM [facility] Basophil % 0.6 0.0 - 2.0 % 11/04/2022 9:36 PM [facility] Neutrophils Absolute 5.22 1.60 - 7.00 10? 3 /uL 11/04/2022 9:36 PM [facility] Lymphocyte Absolute 1.90 1.10 - 3.90 10? 3 /uL 11/04/2022 9:36 PM [facility] Monocytes Absolute 1.07 0.26 - 1.07 10? 3 /uL 11/04/2022 9:36 PM [facility] Eosinophils Absolute 0.06 0.00 - 0.47 10? 3 /uL 11/04/2022 9:36 PM [facility] Basophils Absolute 0.05 0.00 - 0.08 10? 3 /uL 11/04/2022 9:36 PM [facility] Immature Granulocytes % 1.0 0.0 - 1.0 % 11/04/2022 9:36 PM [facility] Immature Granulocytes Absolute 0.08 11/04/2022 9:36 PM [facility] Blood BLOOD SPECIMEN / Unknown Lab Venipuncture / Unknown 11/04/2022 9:28 PM CDT 11/04/2022 9:33 PM CDT Emir Vail MD LAB - HEMATOLOGY ORD DIMAS [address] [address], [facility] [phone] * PHOSPHORUS BLOOD (11/04/2022 9:28 PM CDT) Phosphorus 3.4 2.9 - 5.1 mg/dL 11/04/2022 9:58 PM CDT [facility] Blood BLOOD SPECIMEN / Unknown Lab Venipuncture / Unknown 11/04/2022 9:28 PM CDT 11/04/2022 9:33 PM CDT Emir Vail MD LAB - CHEMISTRY [place] [facility] Performing Organization Address City/[facility]/ZIP Co de Phone Number [address] [address], [facility] [phone] * MAGNESIUM BLOOD (11/04/2022 9:28 PM CDT) Magnesium 2.3 1.6 - 2.6 mg/dL 11/04/2022 9:57 PM CDT [facility] Blood BLOOD SPECIMEN / Unknown Lab Venipuncture / Unknown 11/04/2022 9:28 PM CDT 11/04/2022 9:33 PM CDT Emir Vail MD LAB - CHEMISTRY [place] [address] [address], [facility] [phone] * (ABNORMAL) PTT [facility] (11/04/2022 4:17 PM CDT) APTT 131.0(HH) 23.0 - 38.4 Seconds 11/04/2022 4:47 PM CDT [facility] Comment:Suggested therapeuti c range for full dose I.V. unfractionated heparin therapy for venous thromboembolism is 71 to 109 seconds. Blood BLOOD SPECIMEN / Unknown Lab Venipuncture / Unknown 11/04/2022 4:17 PM CDT 11/04/2022 4:22 PM CDT Jim Walter MD LAB - COAGULATION O RDERABLES Performing Organization Address City/[facility]/ZIP Co de Phone Number [facility] [address] [place] [address], [place] [phone] * (ABNORMAL) PTT [facility] (11/04/2022 9:31 AM CDT) APTT 53.0(H) 23.0 - 38.4 Seconds 11/04/2022 10:55 AM CDT [facility] Comment:Suggested therapeuti c range for full dose I.V. unfractionated heparin therapy for venous thromboembolism is 71 to 109 seconds. Blood BLOOD SPECIMEN / Unknown Lab Venipuncture / Unknown 11/04/2022 9:31 AM CDT 11/04/2022 10:39 AM CDT Jim Walter MD LAB - COAGULATION O RDERABLES Performing Organization Address [facility]/ZIP Co de Phone Number [address] [address], [place] [phone] * VANCOMYCIN LEVEL TROUGH (11/04/2022 9:31 AM CDT) Vancomycin Trough 15.3 10.0 - 20.0 ug/mL 11/04/2022 11:04 AM CDT [facility] Blood BLOOD SPECIMEN / Unknown Lab Venipuncture / Unknown 11/04/2022 9:31 AM CDT 11/04/2022 10:39 AM CDT Narrative [facility] - 11/04/2022 11:04 AM CDT See institution protocol. Jim Walter MD LAB - CHEMISTRY ORD ERABLES Performing Organization Address City/[facility]/ZIP Co de Phone Number [address] [address], [place] [phone] * PT-INR [facility] (11/04/2022 5:53 AM CDT) PT 14.5 12.1 - 14.8 Seconds 11/04/2022 6:15 AM CDT [facility] INR 1.1 See Comment 11/04/2022 6:15 AM CDT [facility] Comment:The suggested therap eutic range for standard coumadin (warfarin) therapy is an INR of 2.0-3.0. For high-risk patients (Mechanical Mitral Valve Prosthesis, etc.), the suggested prophylactic therapeutic range is an INR of 2.5-3.5. Blood BLOOD SPECIMEN / Unknown Lab Venipuncture / Unknown 11/04/2022 5:53 AM CDT 11/04/2022 5:59 AM CDT Jim Walter MD LAB - COAGULATION O RDERABLES Performing Organization Address City/[facility]/ZIP Co de Phone Number [address] [address], [facility] [phone] * PHOSPHORUS BLOOD (11/04/2022 5:53 AM CDT) Phosphorus 3.8 2.9 - 5.1 mg/dL 11/04/2022 6:34 AM CDT [facility] Blood BLOOD SPECIMEN / Unknown Lab Venipuncture / Unknown 11/04/2022 5:53 AM CDT 11/04/2022 6:05 AM CDT Jim Walter MD LAB - CHEMISTRY ORD ERABLES [address] [address], [facility] [phone] * MAGNESIUM BLOOD (11/04/2022 5:53 AM CDT) Magnesium 2.0 1.6 - 2.6 mg/dL 11/04/2022 6:34 AM CDT [facility] Blood BLOOD SPECIMEN / Unknown Lab Venipuncture / Unknown 11/04/2022 5:53 AM CDT 11/04/2022 6:05 AM CDT Jim Walter MD LAB - CHEMISTRY ORD ERABLES [facility] [address] [place] [address], [facility] [phone] * (ABNORMAL) BASIC METABOLIC PANEL (CALCIUM TOTAL) (11/04/2022 5:53 AM CDT) BUN 9 7 - 26 mg/dL 11/04/2022 6:34 AM [facility] Creatinine 0.56 0.56 - 0.96 mg/dL 11/04/2022 6:34 AM [facility] Sodium 139 136 - 145 mmol/L 11/04/2022 6:34 AM [facility] Potassium 3.6 3.5 - 4.5 mmol/L 11/04/2022 6:34 AM [facility] Chloride 104 98 - 107 mmol/L 11/04/2022 6:34 AM [facility] CO2 25 22 - 29 mmol/L 11/04/2022 6:34 AM [facility] Glucose 133(H) 70 - 115 mg/dL 11/04/2022 6:34 AM [facility] Calcium 8.6 8.4 - 10.2 mg/dL 11/04/2022 6:34 AM [facility] Anion Gap 14 8 - 18 11/04/2022 6:34 AM [facility] BUN/Creatinine Ratio 16 7 - 23 11/04/2022 6:34 AM [facility] Osmolality Calculated 289 270 - 300 mOsm/kg 11/04/2022 6:34 AM [facility] eGFR by CKD-EPI >90 >=90 mL/min/1.7 3 m2 11/04/2022 6:34 AM [facility] Blood BLOOD SPECIMEN / Unknown Lab Venipuncture / Unknown 11/04/2022 5:53 AM CDT 11/04/2022 6:05 AM CDT Jim Walter MD LAB - CHEMISTRY ORD ERABLES [address] [address], [facility] [phone] * (ABNORMAL) PTT [facility] (11/04/2022 5:53 AM CDT) APTT 96.7(H) 23.0 - 38.4 Seconds 11/04/2022 6:15 AM CDT [facility] Comment:Suggested therapeuti c range for full dose I.V. unfractionated heparin therapy for venous thromboembolism is 71 to 109 seconds. Blood BLOOD SPECIMEN / Unknown Lab Venipuncture / Unknown 11/04/2022 5:53 AM CDT 11/04/2022 5:59 AM CDT Jim Walter MD LAB - COAGULATION O RDERABLES Performing Organization Address [facility] Co de Phone Number [address] [address], [facility] [phone] * PT-INR [facility] (11/03/2022 11:53 PM CDT) PT 14.2 12.1 - 14.8 Seconds 11/04/2022 12:45 AM CDT [facility] INR 1.1 See Comment 11/04/2022 12:45 AM CDT [facility] Comment:The suggested therap eutic range for standard coumadin (warfarin) therapy is an INR of 2.0-3.0. For high-risk patients (Mechanical Mitral Valve Prosthesis, etc.), the suggested prophylactic therapeutic range is an INR of 2.5-3.5. Blood BLOOD SPECIMEN / Unknown Venipuncture / Unknown 11/03/2022 11:53 PM CDT 11/04/2022 12:00 AM CDT Emir Vail MD LAB - COAGULATION OR DERABLES Performing Organization Address [facility] Co de Phone Number [address] [address], [facility] [phone] * (ABNORMAL) PTT [facility] (11/03/2022 11:53 PM CDT) APTT 77.9(H) 23.0 - 38.4 Seconds 11/04/2022 12:45 AM CDT [facility] Comment:Suggested therapeuti c range for full dose I.V. unfractionated heparin therapy for venous thromboembolism is 71 to 109 seconds. Blood BLOOD SPECIMEN / Unknown Venipuncture / Unknown 11/03/2022 11:53 PM CDT 11/04/2022 12:00 AM CDT Jim Walter MD LAB - COAGULATION O DIONI Performing Organization Address [facility]/ZIP Co de Phone Number [address] [address], [facility] [phone] * (ABNORMAL) PTT [facility] (11/03/2022 4:26 PM CDT) APTT 58.8(H) 23.0 - 38.4 Seconds 11/03/2022 5:58 PM CDT [facility] Comment:Suggested therapeuti c range for full dose I.V. unfractionated heparin therapy for venous thromboembolism is 71 to 109 seconds. Blood BLOOD SPECIMEN / Unknown Lab Venipuncture / Unknown 11/03/2022 4:26 PM CDT 11/03/2022 5:37 PM CDT Jim Walter MD LAB - COAGULATION O DIONI Performing Organization Address City/[facility]/ZIP Co de Phone Number [address] [address], [place] [phone] * (ABNORMAL) PTT [facility] (11/03/2022 10:48 AM CDT) APTT 84.5(H) 23.0 - 38.4 Seconds 11/03/2022 11:33 AM CDT [facility] Comment:Suggested therapeuti c range for full dose I.V. unfractionated heparin therapy for venous thromboembolism is 71 to 109 seconds. Blood BLOOD SPECIMEN / Unknown Lab Venipuncture / Unknown 11/03/2022 10:48 AM CDT 11/03/2022 10:55 AM CDT Jim Walter MD LAB - COAGULATION O RDDIMAS Performing Organization Address City/[facility]/ZIP Co de Phone Number [address] [address], [place] [phone] * (ABNORMAL) GLUCOSE - POINT OF CARE (11/03/2022 5:20 AM CDT) Glucose WB/POC 126(H) 70 - 115 mg/dL 11/03/2022 4:58 PM CDT [facility] Specimen Type Cap Fingerstick 2022 4:58 PM CDT [facility] Blood BLOOD SPECIMEN / Unknown 11/03/2022 5:20 AM CDT 11/03/2022 4:58 PM CDT Jim Walter MD LAB - POINT OF CARE ORDERABLES Performing Organization Address [facility], [place]/[facility] Co de Phone Number [address] [address], [place] [phone] * (ABNORMAL) PTT [facility] (11/03/2022 4:49 AM CDT) Pathologist [facility] [place] APTT 89.3(H) 23.0 - 38.4 Seconds 11/03/2022 5:35 AM CDT [facility] Comment:Suggested therapeuti c range for full dose I.V. unfractionated heparin therapy for venous thromboembolism is 71 to 109 seconds. Blood BLOOD SPECIMEN / Unknown Venipuncture / Unknown 11/03/2022 4:49 AM CDT 11/03/2022 5:04 AM CDT Jim Walter MD LAB - COAGULATION O RDDIMAS Performing Organization Address [facility] [place]/[facility]/ZIP Co de Phone Number [address] [address], [place] [phone] * (ABNORMAL) PT-INR [facility] (11/03/2022 4:49 AM CDT) PT 15.1(H) 12.1 - 14.8 Seconds 11/03/2022 5:35 AM [facility] INR 1.2 See Comment 11/03/2022 5:35 AM [facility] Comment:The suggested therap eutic range for standard coumadin (warfarin) therapy is an INR of 2.0-3.0. For high-risk patients (Mechanical Mitral Valve Prosthesis, etc.), the suggested prophylactic therapeutic range is an INR of 2.5-3.5. Blood BLOOD SPECIMEN / Unknown Venipuncture / Unknown 11/03/2022 4:49 AM CDT 11/03/2022 5:05 AM CDT Emir Vail MD LAB - COAGULATION OR DERABLES [facility] [address] [place] [address], [facility] [phone] * (ABNORMAL) BASIC METABOLIC PANEL (CALCIUM TOTAL) (11/02/2022 10:21 PM T) BUN 11 7 - 26 mg/dL 11/02/2022 11:04 PM [facility] Creatinine 0.55(L) 0.56 - 0.96 mg/dL 11/02/2022 11:04 PM [facility] Sodium 138 136 - 145 mmol/L 11/02/2022 11:04 PM [facility] Potassium 3.9 3.5 - 4.5 mmol/L 11/02/2022 11:04 PM [facility] Chloride 103 98 - 107 mmol/L 11/02/2022 11:04 PM [facility] CO2 23 22 - 29 mmol/L 11/02/2022 11:04 PM [facility] Glucose 101 70 - 115 mg/dL 11/02/2022 11:04 PM [facility] Calcium 8.9 8.4 - 10.2 mg/dL 11/02/2022 11:04 PM [facility] Anion Gap 16 8 - 18 11/02/2022 11:04 PM [facility] BUN/Creatinine Ratio 20 7 - 23 11/02/2022 11:04 PM [facility] Osmolality Calculated 286 270 - 300 mOsm/kg 11/02/2022 11:04 PM [facility] eGFR by CKD-EPI >90 >=90 mL/min/1.7 3 m2 11/02/2022 11:04 PM [facility] Blood BLOOD SPECIMEN / Unknown Venipuncture / Unknown 11/02/2022 10:21 PM CDT 11/02/2022 10:37 PM CDT Emir Vail MD LAB - CHEMISTRY B[place]NA BLACKMAN [facility] [address] [place] [address], [facility] [phone] * (ABNORMAL) CBC W AUTO DIFFERENTIAL (11/02/2022 10:21 PM CDT) WBC 13.3(H) 3.5 - 10.5 10? 3 /uL 11/02/2022 10:59 PM [facility] RBC 3.44(L) 3.80 - 5.20 10? 6 /uL 11/02/2022 10:59 PM [facility] Hemoglobin 10.3(L) 12.0 - 15.6 g/dL 11/02/2022 10:59 PM [facility] Hematocrit 32.0(L) 35.0 - 45.0 % 11/02/2022 10:59 PM [facility] MCV 93.0 80.7 - 98.3 fL 11/02/2022 10:59 PM [facility] MCH 29.9 26.7 - 34.0 pg 11/02/2022 10:59 PM [facility] MCHC 32.2 30.8 - 35.9 g/dL 11/02/2022 10:59 PM [facility] RDW-SD 48.5 36.0 - 50.0 fL 11/02/2022 10:59 PM [facility] RDW-CV 14.4 11.2 - 14.8 % 11/02/2022 10:59 PM [facility] Platelet Count 405(H) 150 - 400 10? 3 /uL 11/02/2022 10:59 PM [facility] MPV 10.4 9.4 - 12.9 fL 11/02/2022 10:59 PM [facility] nRBC Absolute 0.00 0 10? 3 /uL 11/02/2022 10:59 PM [facility] nRBC Auto 0.0 0 /100 WBC 11/02/2022 10:59 PM [facility] Neutrophils % 69.8 35.0 - 70.0 % 11/02/2022 10:59 PM [facility] Lymphocytes % 17.3(L) 20.0 - 43.0 % 11/02/2022 10:59 PM [facility] Monocytes % 8.0 5.0 - 13.0 % 11/02/2022 10:59 PM [facility] Eosinophils % 3.4 0.0 - 6.0 % 11/02/2022 10:59 PM [facility] Basophil % 0.5 0.0 - 2.0 % 11/02/2022 10:59 PM [facility] Neutrophils Absolute 9.29(H) 1.60 - 7.00 10? 3 /uL 11/02/2022 10:59 PM [facility] Lymphocyte Absolute 2.30 1.10 - 3.90 10? 3 /uL 11/02/2022 10:59 PM [facility] Monocytes Absolute 1.07 0.26 - 1.07 10? 3 /uL 11/02/2022 10:59 PM [facility] Eosinophils Absolute 0.45 0.00 - 0.47 10? 3 /uL 11/02/2022 10:59 PM [facility] Basophils Absolute 0.06 0.00 - 0.08 10? 3 /uL 11/02/2022 10:59 PM [facility] Immature Granulocytes % 1.0 0.0 - 1.0 % 11/02/2022 10:59 PM [facility] Immature Granulocytes Absolute 0.13 11/02/2022 10:59 PM [facility] Blood BLOOD SPECIMEN / Unknown Venipuncture / Unknown 11/02/2022 10:21 PM CDT 11/02/2022 10:36 PM CDT Emir Vail MD LAB - HEMATOLOGY ORD DIMAS Performing Organization Address City/[facility]/ZIP Co de Phone Number [address] [address], [facility] [phone] * PHOSPHORUS BLOOD (11/02/2022 10:21 PM CDT) Phosphorus 4.2 2.9 - 5.1 mg/dL 11/02/2022 11:04 PM CDT [facility] Blood BLOOD SPECIMEN / Unknown Venipuncture / Unknown 11/02/2022 10:21 PM CDT 11/02/2022 10:37 PM CDT Emir Vail MD LAB - CHEMISTRY [place]NA BLACKMAN Performing Organization Address [facility]/ZIP Co de Phone Number [address] [address], [facility] [phone] * MAGNESIUM BLOOD (11/02/2022 10:21 PM CDT) Magnesium 1.9 1.6 - 2.6 mg/dL 11/02/2022 11:04 PM CDT [facility] Blood BLOOD SPECIMEN / Unknown Venipuncture / Unknown 11/02/2022 10:21 PM CDT 11/02/2022 10:37 PM CDT Emir Vail MD LAB - CHEMISTRY [place]NA BLACKMAN Performing Organization Address City/[facility]/ZIP Co de Phone Number [address] [address], [facility] [phone] * (ABNORMAL) PTT [facility] (11/02/2022 10:21 PM CDT) APTT 58.3(H) 23.0 - 38.4 Seconds 11/02/2022 11:01 PM CDT [facility] Comment:Suggested therapeuti c range for full dose I.V. unfractionated heparin therapy for venous thromboembolism is 71 to 109 seconds. Blood BLOOD SPECIMEN / Unknown Venipuncture / Unknown 11/02/2022 10:21 PM CDT 11/02/2022 10:36 PM CDT Jim Walter MD LAB - COAGULATION O DIONI [facility] [address] [place] [address], [place] [phone] * (ABNORMAL) PTT [facility] (11/02/2022 4:37 PM CDT) APTT 69.8(H) 23.0 - 38.4 Seconds 11/02/2022 5:19 PM CDT [facility] Comment:Suggested therapeuti c range for full dose I.V. unfractionated heparin therapy for venous thromboembolism is 71 to 109 seconds. Blood BLOOD SPECIMEN / Unknown Lab Venipuncture / Unknown 11/02/2022 4:37 PM CDT 11/02/2022 4:52 PM CDT Jim Walter MD LAB - COAGULATION O DIONI Performing Organization Address [facility]/ZIP Co de Phone Number [facility] [address] [place] [address], [place] [phone] * (ABNORMAL) PTT [facility] (11/02/2022 11:12 AM CDT) APTT 54.9(H) 23.0 - 38.4 Seconds 11/02/2022 11:57 AM CDT [facility] Comment:Suggested therapeuti c range for full dose I.V. unfractionated heparin therapy for venous thromboembolism is 71 to 109 seconds. Blood BLOOD SPECIMEN / Unknown Lab Venipuncture / Unknown 11/02/2022 11:12 AM CDT 11/02/2022 11:32 AM CDT Jim Walter MD LAB - COAGULATION O DIONI [facility] [address] [place] [address], [place] [phone] * VANCOMYCIN LEVEL TROUGH (11/02/2022 9:17 AM CDT) Pathologist [facility] Vancomycin Trough 13.2 10.0 - 20.0 ug/mL 11/02/2022 10:35 AM CDT [facility] Blood BLOOD SPECIMEN / Unknown Venipuncture / Unknown 11/02/2022 9:17 AM CDT 11/02/2022 9:20 AM CDT Narrative [facility] - 11/02/2022 10:35 AM CDT See institution protocol. Dary Garvey MD LAB - CHEMISTRY BIB[place]NA BLACKMAN Performing Organization Address City/[facility]/ZIP Co de Phone Number [address] [address], [facility] [phone] * (ABNORMAL) PTT [facility] (11/02/2022 4:45 AM CDT) [facility] APTT 52.5(H) 23.0 - 38.4 Seconds 11/02/2022 5:20 AM CDT [facility] Comment:Suggested therapeuti c range for full dose I.V. unfractionated heparin therapy for venous thromboembolism is 71 to 109 seconds. Blood BLOOD SPECIMEN / Unknown Venipuncture / Unknown 11/02/2022 4:45 AM CDT 11/02/2022 4:59 AM CDT Jim Walter MD LAB - COAGULATION O RDERABLES Performing Organization Address City/[facility]/ZIP Co de Phone Number [address] [address], [place] [phone] * HEPATITIS C AB SCREEN RFLX NAAT QUANT (11/02/2022 4:45 AM CDT) [facility] Hepatitis C Antibody Non-react tiffany Non-reac tive 11/02/2022 5:56 AM CDT [facility] Comment:Hepatitis C Antibody screen indicates no serologic [...] - CHEMISTRY ORD ERABLES Performing Organization Address City/[facility]/ZIP Co de Phone Number [address] [address], [facility] [phone] * (ABNORMAL) HEPATITIS B PANEL (11/02/2022 4:45 AM CDT) Hepatitis B Virus Surface Antibody Reactive(A ) Non-react tiffany 11/02/2022 5:55 AM CDT [facility] Comment: > 12 mIU/mL Hepatitis B surface Antibody (HBsAb). Reactive for HBsAb - individual is considered immune to Hepatitis B Virus infection. Hepatitis B Virus Surface Antigen Non-reacti ve Non-react tiffany 11/02/2022 5:55 AM CDT [facility] Hepatitis B Core Virus Antibody IgM Non-reacti ve Non-react tiffany 11/02/2022 5:55 AM CDT [facility] Blood BLOOD SPECIMEN / Unknown Venipuncture / Unknown 11/02/2022 4:45 AM CDT 11/02/2022 4:56 AM CDT Jim Walter MD LAB - CHEMISTRY ORD ERABLES [address] [address], [place] [phone] * EXPOSURE HIV (11/02/2022 4:45 AM CDT) HIV Antigen/Antibo dy 1 & 2 Non-reacti ve Non-reacti ve 11/02/2022 5:56 AM CDT [facility] Blood BLOOD SPECIMEN / Unknown Venipuncture / Unknown 11/02/2022 4:45 AM CDT 11/02/2022 4:56 AM CDT Jim Walter MD LAB - CHEMISTRY ORD ERABLES Performing Organization Address [facility] Co de Phone Number [address] [address], [facility] [phone] * (ABNORMAL) PTT [facility] (11/02/2022 1:32 AM CDT) APTT 48.3(H) 23.0 - 38.4 Seconds 11/02/2022 2:53 AM CDT [facility] Comment:Suggested therapeuti c range for full dose I.V. unfractionated heparin therapy for venous thromboembolism is 71 to 109 seconds. Blood BLOOD SPECIMEN / Unknown Lab Venipuncture / Unknown 11/02/2022 1:32 AM CDT 11/02/2022 2:14 AM CDT Jim Walter MD LAB - COAGULATION O RDERABLES Performing Organization Address [facility] Co de Phone Number [address] [address], [facility] [phone] * (ABNORMAL) PT-INR [facility] (11/02/2022 1:32 AM CDT) PT 15.1(H) 12.1 - 14.8 Seconds 11/02/2022 2:53 AM CDT [facility] INR 1.2 See Comment 11/02/2022 2:53 AM CDT [facility] Comment:The suggested therap eutic [...] OR DERABLES Performing Organization Address [facility] Co de Phone Number [address] [address], [facility] [phone] * (ABNORMAL) BASIC METABOLIC PANEL (CALCIUM TOTAL) (11/02/2022 1:32 AM CDT) BUN 10 7 - 26 mg/dL 11/02/2022 2:44 AM [facility] Creatinine 0.48(L) 0.56 - 0.96 mg/dL 11/02/2022 2:44 AM [facility] Sodium 138 136 - 145 mmol/L 11/02/2022 2:44 AM [facility] Potassium 4.1 3.5 - 4.5 mmol/L 11/02/2022 2:44 AM [facility] Chloride 108(H) 98 - 107 mmol/L 11/02/2022 2:44 AM [facility] CO2 22 22 - 29 mmol/L 11/02/2022 2:44 AM [facility] Glucose 96 70 - 115 mg/dL 11/02/2022 2:44 AM [facility] Calcium 8.6 8.4 - 10.2 mg/dL 11/02/2022 2:44 AM [facility] Anion Gap 12 8 - 18 11/02/2022 2:44 AM [facility] BUN/Creatinine Ratio 21 7 - 23 11/02/2022 2:44 AM [facility] Osmolality Calculated 285 270 - 300 mOsm/kg 11/02/2022 2:44 AM [facility] eGFR by CKD-EPI >90 >=90 mL/min/1.7 3 m2 11/02/2022 2:44 AM [facility] Blood BLOOD SPECIMEN / Unknown Lab Venipuncture / Unknown 11/02/2022 1:32 AM CDT 11/02/2022 2:16 AM CDT Emir Vail MD LAB - CHEMISTRY BIBIANA BLACKMAN [facility] Organization Address City/State/ZIP Co de Phone Number [facility] [address] [place] [address], [facility] [phone] * (ABNORMAL) CBC W AUTO DIFFERENTIAL (11/02/2022 1:32 AM CDT) Pathologist [facility] WBC 19.3(H) 3.5 - 10.5 10? 3 /uL 11/02/2022 2:22 AM [facility] RBC 3.32(L) 3.80 - 5.20 10? 6 /uL 11/02/2022 2:22 AM [facility] Hemoglobin 10.0(L) 12.0 - 15.6 g/dL 11/02/2022 2:22 AM [facility] Hematocrit 31.1(L) 35.0 - 45.0 % 11/02/2022 2:22 AM [facility] MCV 93.7 80.7 - 98.3 fL 11/02/2022 2:22 AM [facility] MCH 30.1 26.7 - 34.0 pg 11/02/2022 2:22 AM [facility] MCHC 32.2 30.8 - 35.9 g/dL 11/02/2022 2:22 AM [facility] RDW-SD 49.4 36.0 - 50.0 fL 11/02/2022 2:22 AM [facility] RDW-CV 14.7 11.2 - 14.8 % 11/02/2022 2:22 AM [facility] Platelet Count 400 150 - 400 10? 3 /uL 11/02/2022 2:22 AM [facility] MPV 10.1 9.4 - 12.9 fL 11/02/2022 2:22 AM [facility] nRBC Absolute 0.02(H) 0 10? 3 /uL 11/02/2022 2:22 AM [facility] nRBC Auto 0.1(H) 0 /100 WBC 11/02/2022 2:22 AM [facility] Neutrophils % 76.4(H) 35.0 - 70.0 % 11/02/2022 2:22 AM [facility] Lymphocytes % 13.4(L) 20.0 - 43.0 % 11/02/2022 2:22 AM [facility] Monocytes % 7.3 5.0 - 13.0 % 11/02/2022 2:22 AM [facility] Eosinophils % 1.4 0.0 - 6.0 % 11/02/2022 2:22 AM CDT [facility] Basophil % 0.3 0.0 - 2.0 % 11/02/2022 2:22 AM T [facility] Neutrophils Absolute 14.73(H) 1.60 - 7.00 10? 3 /uL 11/02/2022 2:22 AM CDT [facility] Lymphocyte Absolute 2.59 1.10 - 3.90 10? 3 /uL 11/02/2022 2:22 AM CDT [facility] Monocytes Absolute 1.40(H) 0.26 - 1.07 10? 3 /uL 11/02/2022 2:22 AM T [facility] Eosinophils Absolute 0.27 0.00 - 0.47 10? 3 /uL 11/02/2022 2:22 AM T [facility] Basophils Absolute 0.06 0.00 - 0.08 10? 3 /uL 11/02/2022 2:22 AM T [facility] Immature Granulocytes % 1.2(H) 0.0 - 1.0 % 11/02/2022 2:22 AM T [facility] Immature Granulocytes Absolute 0.23 11/02/2022 2:22 AM T [facility] Blood BLOOD SPECIMEN / Unknown Lab Venipuncture / Unknown 11/02/2022 1:32 AM CDT 11/02/2022 2:17 AM CDT Emir aVil MD LAB - HEMATOLOGY ORD DIMAS [facility] [address] [place] [address], [facility] [phone] * PHOSPHORUS BLOOD (11/02/2022 1:32 AM CDT) Phosphorus 4.5 2.9 - 5.1 mg/dL 11/02/2022 2:44 AM CDT [facility] Blood BLOOD SPECIMEN / Unknown Lab Venipuncture / Unknown 11/02/2022 1:32 AM CDT 11/02/2022 2:16 AM CDT Emir Vail MD LAB - CHEMISTRY ORDE HIRAL [facility] [address] [place] [address], [place] [phone] * MAGNESIUM BLOOD (11/02/2022 1:32 AM CDT) [facility] Magnesium 2.0 1.6 - 2.6 mg/dL 11/02/2022 2:44 AM CDT [facility] Blood BLOOD SPECIMEN / Unknown Lab Venipuncture / Unknown 11/02/2022 1:32 AM CDT 11/02/2022 2:16 AM CDT Emir Vail MD LAB - CHEMISTRY BIBIANA BLACKMAN Performing Organization Address City/[facility]/ZIP Co de Phone Number [facility] [address] [place] [address], [place] [phone] * PREPARE (CROSSMATCH) RBC UNIT(S), 3 Units (11/02/2022 1:17 AM CDT) Pathologist [facility] Unit Description N/A [facility] BLOOD BANK LAB Blood Bank BLOOD SPECIMEN / Unknown 10/29/2022 11:32 AM CDT Valdez Clay MD LAB - BLOOD BANK O RDERABLES Performing Organization Address City/[facility]/ZIP Co de Phone Number [facility] BLOOD BANK LAB [address] [place] [address], [place] [phone] * PREPARE (CROSSMATCH) RBC UNIT(S), 2 Units (11/02/2022 1:17 AM CDT) Unit Description AS1 LR PRBC [facility] BLOOD BANK LAB Unit ABO B [facility] BLOOD [facility] LAB Unit Rh POS [facility] BLOOD [facility]ANK LAB Product Number R02 [facility] B LOOD BANK LAB Unit Donor # [id number] [facility] BLOOD BANK LAB Unit Status released [facility] BLOO D BANK LAB Product Code [id number] [facility] BLO OD BANK LAB Blood Type Barcode 7300 [facility] BLOOD [facility]ANK LAB Expiration Date S BLOOD BANK LAB Unit Description AS1 LR PRBC [facility] BLOOD [facility]ANK LAB Unit ABO B [facility] BLOOD BANK LAB Unit Rh POS [facility] BLOOD BANK LAB Product Number R02 [facility] B LOOD BANK LAB Unit Donor # [id number] [facility] BLOOD BANK LAB Unit Status transfused [facility] BLO OD BANK LAB Product Code [id number] [facility] BLO OD BANK LAB Blood Type Barcode 7300 [facility] BLOOD BANK LAB Expiration Date S BLOOD BANK LAB Blood Bank BLOOD SPECIMEN / Unknown 10/29/2022 11:32 AM CDT Jim Walter MD LAB - BLOOD BANK OR DERABLES [facility] BLOOD [facility]ANK LAB [address] [place] [address], [facility] [phone] * PREPARE (CROSSMATCH) RBC UNIT(S), 2 Units (11/02/2022 1:17 AM CDT) Unit Description N/A [facility] BLOOD BANK LAB Blood Bank BLOOD SPECIMEN / Unknown 10/29/2022 11:32 AM CDT Jim Walter MD LAB - BLOOD BANK OR DERABLES [facility] BLOOD [facility]ANK LAB [address] [place] [address], [facility] [phone] * CT ABDOMEN WO CONTRAST (2022 6:47 PM CDT) Anatomical Region Laterality Modality Abdomen Computed Tomogra phy 2022 7:20 PM CDT Impressions 11/02/2022 1:18 AM CDT Impression: Interval placement of a percutaneous gastrostomy tube with intraluminal placement of tip and inflated balloon within the body/antrum of the stomach without complication, as clinically queried.. > Dictated by Tim Major MD (residential installer). I, Pepe Gonzalez MD have personally reviewed and interpreted this examination/study. > Interpreting Provider: Pepe Gonzalez MD on 11/02/2022 1:18 AM Narrative 11/02/2022 1:18 AM CDT PROCEDURE: ??CT ABDOMEN WO CONTRAST, DATE/TIME OF EXAM: ??2022 6:47 PM, LOCATION ??[facility] INDICATION: Z93.1: Presence of externally removable [...] CONTRAST, DATE/TIME OF EXAM: 2022 6:47PM, LOCATION [facility] INDICATION: Z93.1: Presence of externally removable [...] > Dictated by Tim Major MD (residential installer). I, Pepe Gonzalez MD have personally reviewed [...] Procedure Code(s): ? --- Professional --- ? 04221, Esophagogastroduoden oscopy, flexible, transoral; with directed ? placement of percutaneous gastrostomy tube Diagnosis Code(s): ?--- Professional --- ?K44.9, Diaphragmatic hernia without obstruction or ?gangrene ?K29.60, Other gastritis without bleeding ?R13.12, Dysphagia, oropharyngeal phase ?R29.818, Other symptoms and signs involving the ?nervous system ?Z43.1, Encounter for attention to gastrostomy CPT copyright 2021 [employer]. All rights reserved. The codes documented in this report are preliminary and upon turbine blade assembler review may be revised to meet current compliance requirements. Khanh Metz MD 2022 3:26:58 PM Note Initiated On: 2022 2:14 PM Number of Addenda: 0 ? [facility] ? [address] [place], [place] [id number] [place] [address] PROVATION 2022 2:14 PM CDT Khanh Metz MD GI PROCEDURE ORDERAB LES [facility] PROVATION * (ABNORMAL) PTT [facility] (2022 8:48 AM CDT) APTT 43.6(H) 23.0 - 38.4 Seconds 2022 9:20 AM CDT [facility] Comment:Suggested therapeuti c range for full dose I.V. unfractionated heparin therapy for venous thromboembolism is 71 to 109 seconds. Blood BLOOD SPECIMEN / Unknown Venipuncture / Unknown 2022 8:48 AM CDT 2022 8:56 AM CDT Jim Walter MD LAB - COAGULATION O RDERABLES [facility] [address] [place] [address], [facility] [phone] * PT-INR [facility] (2022 2:40 AM CDT) PT 14.3 12.1 - 14.8 Seconds 2022 3:16 AM CDT [facility] INR 1.1 See Comment 2022 3:16 AM CDT [facility] Comment:The suggested therap eutic range for standard coumadin (warfarin) therapy is an INR of 2.0-3.0. For high-risk patients (Mechanical Mitral Valve Prosthesis, etc.), the suggested prophylactic therapeutic range is an INR of 2.5-3.5. Blood BLOOD SPECIMEN / Unknown Venipuncture / Unknown 2022 2:40 AM CDT 2022 2:47 AM CDT Emir Vail MD LAB - COAGULATION OR DERABLES Performing Organization Address City/[facility]/ZIP Co de Phone Number [address] [address], [facility] [phone] * (ABNORMAL) PTT [facility] (2022 2:40 AM CDT) APTT 67.7(H) 23.0 - 38.4 Seconds 2022 3:16 AM CDT [facility] Comment:Suggested therapeuti c range for full dose I.V. unfractionated heparin therapy for venous thromboembolism is 71 to 109 seconds. Blood BLOOD SPECIMEN / Unknown Venipuncture / Unknown 2022 2:40 AM CDT 2022 2:47 AM CDT Good Antunez MD LAB - COAGULATION OR DERABLES [facility] [address] [place] [address], [facility] [phone] * (ABNORMAL) PTT [facility] (2022 12:03 AM CDT) APTT 71.4(H) 23.0 - 38.4 Seconds 2022 12:45 AM [facility] Comment:Suggested therapeuti c range for full dose I.V. unfractionated heparin therapy for venous thromboembolism is 71 to 109 seconds. Blood BLOOD SPECIMEN / Unknown Venipuncture / Unknown 2022 12:03 AM CDT 2022 12:18 AM CDT Jim Walter MD LAB - COAGULATION O RDERABLES [facility] [address] [place] [address], [facility] [phone] * (ABNORMAL) BASIC METABOLIC PANEL (CALCIUM TOTAL) (2022 12:03 AM CDT) [facility] BUN 8 7 - 26 mg/dL 2022 12:45 AM [facility] Creatinine 0.56 0.56 - 0.96 mg/dL 2022 12:45 AM [facility] Sodium 139 136 - 145 mmol/L 2022 12:45 AM [facility] Potassium 3.7 3.5 - 4.5 mmol/L 2022 12:45 AM [facility] Chloride 105 98 - 107 mmol/L 2022 12:45 AM [facility] CO2 25 22 - 29 mmol/L 2022 12:45 AM [facility] Glucose 128(H) 70 - 115 mg/dL 2022 12:45 AM [facility] Calcium 8.7 8.4 - 10.2 mg/dL 2022 12:45 AM [facility] Anion Gap 13 8 - 18 2022 12:45 AM [facility] BUN/Creatinine Ratio 14 7 - 23 2022 12:45 AM [facility] Osmolality Calculated 288 270 - 300 mOsm/kg 2022 12:45 AM [facility] eGFR by CKD-EPI >90 >=90 mL/min/1.7 3 m2 2022 12:45 AM [facility] Blood BLOOD SPECIMEN / Unknown Venipuncture / Unknown 2022 12:03 AM CDT 2022 12:18 AM CDT Emir Vail MD LAB - CHEMISTRY [facility] [facility] Organization Address City/State/ZIP Co de Phone Number [facility] [address] [place] [address], [facility] [phone] * (ABNORMAL) CBC W AUTO DIFFERENTIAL (2022 12:03 AM T) WBC 20.6(H) 3.5 - 10.5 10? 3 /uL 2022 12:40 AM [facility] RBC 3.41(L) 3.80 - 5.20 10? 6 /uL 2022 12:40 AM [facility] Hemoglobin 10.1(L) 12.0 - 15.6 g/dL 2022 12:40 AM [facility] Hematocrit 31.6(L) 35.0 - 45.0 % 2022 12:40 AM [facility] MCV 92.7 80.7 - 98.3 fL 2022 12:40 AM [facility] MCH 29.6 26.7 - 34.0 pg 2022 12:40 AM [facility] MCHC 32.0 30.8 - 35.9 g/dL 2022 12:40 AM [facility] RDW-SD 49.7 36.0 - 50.0 fL 2022 12:40 AM [facility] RDW-CV 15.1(H) 11.2 - 14.8 % 2022 12:40 AM [facility] Platelet Count 437(H) 150 - 400 10? 3 /uL 2022 12:40 AM [facility] MPV 9.8 9.4 - 12.9 fL 2022 12:40 AM [facility] nRBC Absolute 0.03(H) 0 10? 3 /uL 2022 12:40 AM [facility] nRBC Auto 0.1(H) 0 /100 WBC 2022 12:40 AM [facility] Neutrophils % 71.7(H) 35.0 - 70.0 % 2022 12:40 AM [facility] Lymphocytes % 14.3(L) 20.0 - 43.0 % 2022 12:40 AM [facility] Monocytes % 9.6 5.0 - 13.0 % 2022 12:40 AM [facility] Eosinophils % 2.0 0.0 - 6.0 % 2022 12:40 AM [facility] Basophil % 0.4 0.0 - 2.0 % 2022 12:40 AM [facility] Neutrophils Absolute 14.76(H) 1.60 - 7.00 10? 3 /uL 2022 12:40 AM [facility] Lymphocyte Absolute 2.94 1.10 - 3.90 10? 3 /uL 2022 12:40 AM [facility] Monocytes Absolute 1.98(H) 0.26 - 1.07 10? 3 /uL 2022 12:40 AM [facility] Eosinophils Absolute 0.42 0.00 - 0.47 10? 3 /uL 2022 12:40 AM [facility] Basophils Absolute 0.08 0.00 - 0.08 10? 3 /uL 2022 12:40 AM [facility] Immature Granulocytes % 2.0(H) 0.0 - 1.0 % 2022 12:40 AM [facility] Immature Granulocytes Absolute 0.41 2022 12:40 AM [facility] Blood BLOOD SPECIMEN / Unknown Venipuncture / Unknown 2022 12:03 AM CDT 2022 12:18 AM CDT Emir Vail MD LAB - HEMATOLOGY ORD DIMAS Performing Organization Address City/[facility]/ZIP Co de Phone Number [facility] [address] [place] [address], [place] [phone] * PHOSPHORUS BLOOD (2022 12:03 AM CDT) Phosphorus 4.1 2.9 - 5.1 mg/dL 2022 12:45 AM CDT [facility] Blood BLOOD SPECIMEN / Unknown Venipuncture / Unknown 2022 12:03 AM CDT 2022 12:18 AM CDT Emir Vail MD LAB - CHEMISTRY [place] BLACKMAN Performing Organization Address City/[facility]/ZIP Co de Phone Number [address] [address], [place] [phone] * MAGNESIUM BLOOD (2022 12:03 AM CDT) Magnesium 2.1 1.6 - 2.6 mg/dL 2022 12:45 AM CDT [facility] Blood BLOOD SPECIMEN / Unknown Venipuncture / Unknown 2022 12:03 AM CDT 2022 12:18 AM CDT Emir Vail MD LAB - CHEMISTRY ORDDanyelle BLACKMAN Performing Organization Address City/[facility]/ZIP Co de Phone Number [address] [address], [place] [phone] * (ABNORMAL) PTT [facility] (10/31/2022 10:11 PM CDT) APTT 67.6(H) 23.0 - 38.4 Seconds 10/31/2022 11:16 PM CDT [facility] Comment:Suggested therapeuti c range for full dose I.V. unfractionated heparin therapy for venous thromboembolism is 71 to 109 seconds. Blood BLOOD SPECIMEN / Unknown Venipuncture / Unknown 10/31/2022 10:11 PM CDT 10/31/2022 10:24 PM CDT Jim Walter MD LAB - COAGULATION O RDERABLES Performing Organization Address City/[facility]/ZIP Co de Phone Number [address] [address], [facility] [phone] * (ABNORMAL) PTT [facility] (10/31/2022 7:33 PM CDT) APTT 53.1(H) 23.0 - 38.4 Seconds 10/31/2022 8:18 PM CDT [facility] Comment:Suggested therapeuti c range for full dose I.V. unfractionated heparin therapy for venous thromboembolism is 71 to 109 seconds. Blood BLOOD SPECIMEN / Unknown Venipuncture / Unknown 10/31/2022 7:33 PM CDT 10/31/2022 7:51 PM CDT Good Antunez MD LAB - COAGULATION OR DERABLES Performing Organization Address [facility] Co de Phone Number [address] [address], [facility] [phone] * (ABNORMAL) PTT [facility] (10/31/2022 3:22 PM CDT) APTT 50.2(H) 23.0 - 38.4 Seconds 10/31/2022 3:51 PM CDT [facility] Comment:Suggested therapeuti c range for full dose I.V. unfractionated heparin therapy for venous thromboembolism is 71 to 109 seconds. Blood BLOOD SPECIMEN / Unknown Venipuncture / Unknown 10/31/2022 3:22 PM CDT 10/31/2022 3:27 PM CDT Good Antunez MD LAB - COAGULATION OR DERABLES Performing Organization Address City/[facility]/ZIP Co de Phone Number [address] [address] [phone] * CT ABDOMEN PELVIS W CONTRAST (10/31/2022 [...] DATE/TIME OF EXAM: ??10/31/2022 10:16 AM, LOCATION ??[facility] INDICATION: I33.0: Aortic valve vegetation ADDITIONAL [...] DATE/TIME OF EXAM: 10/31/2022 10:16 AM, LOCATION [facility] INDICATION: I33.0: Aortic valve vegetation ADDITIONAL [...] Jim Walter MD CT ORDERABLES * PTT [facility] (10/31/2022 9:48 AM CDT) APTT 27.2 23.0 - 38.4 Seconds 10/31/2022 10:23 AM CDT [facility] Comment:Suggested therapeuti c range for full dose I.V. unfractionated heparin therapy for venous thromboembolism is 71 to 109 seconds. Blood BLOOD SPECIMEN / Unknown Venipuncture / Unknown 10/31/2022 9:48 AM CDT 10/31/2022 9:54 AM CDT Good Antunez MD LAB - COAGULATION OR DERABLES Performing Organization Address City/State/[facility] Co de Phone Number [facility] [address] [place] [address], [facility] [phone] * (ABNORMAL) VANCOMYCIN LEVEL TROUGH (10/31/2022 9:48 AM CDT) Vancomycin Trough 25.4(HH) 10.0 - 20.0 ug/mL 10/31/2022 10:30 AM CDT [facility] Blood BLOOD SPECIMEN / Unknown Venipuncture / Unknown 10/31/2022 9:48 AM CDT 10/31/2022 9:51 AM CDT Narrative [facility] - 10/31/2022 10:30 AM CDT See institution protocol. Dary Garvey MD LAB - CHEMISTRY ORDE HIRAL [facility] [address] [place] [address], [facility] [phone] * PT-INR [facility] (10/31/2022 12:22 AM CDT) PT 14.5 12.1 - 14.8 Seconds 10/31/2022 12:54 AM CDT [facility] INR 1.1 See Comment 10/31/2022 12:54 AM CDT [facility] Comment:The suggested therap eutic range for standard coumadin (warfarin) therapy is an INR of 2.0-3.0. For high-risk patients (Mechanical Mitral Valve Prosthesis, etc.), the suggested prophylactic therapeutic range is an INR of 2.5-3.5. Blood BLOOD SPECIMEN / Unknown Venipuncture / Unknown 10/31/2022 12:22 AM CDT 10/31/2022 12:30 AM CDT Emir Vail MD LAB - COAGULATION OR DERABLES [facility] [address] [place] [address], [facility] [phone] * (ABNORMAL) BASIC METABOLIC PANEL (CALCIUM TOTAL) (10/31/2022 12:22 AM CDT) BUN 8 7 - 26 mg/dL 10/31/2022 12:57 AM CDT [facility] Creatinine 0.56 0.56 - 0.96 mg/dL 10/31/2022 12:57 AM CDT [facility] Sodium 140 136 - 145 mmol/L 10/31/2022 12:57 AM CDT [facility] Potassium 4.2 3.5 - 4.5 mmol/L 10/31/2022 12:57 AM CDT [facility] Chloride 107 98 - 107 mmol/L 10/31/2022 12:57 AM CDT [facility] CO2 24 22 - 29 mmol/L 10/31/2022 12:57 AM [facility] Glucose 119(H) 70 - 115 mg/dL 10/31/2022 12:57 AM [facility] Calcium 8.4 8.4 - 10.2 mg/dL 10/31/2022 12:57 AM [facility] Anion Gap 13 8 - 18 10/31/2022 12:57 AM [facility] BUN/Creatinine Ratio 14 7 - 23 10/31/2022 12:57 AM [facility] Osmolality Calculated 289 270 - 300 mOsm/kg 10/31/2022 12:57 AM [facility] eGFR by CKD-EPI >90 >=90 mL/min/1.7 3 m2 10/31/2022 12:57 AM [facility] Blood BLOOD SPECIMEN / Unknown Venipuncture / Unknown 10/31/2022 12:22 AM CDT 10/31/2022 12:30 AM T Emir Vail MD LAB - CHEMISTRY [place] [facility] Organization Address City/State/[facility] Co de Phone Number [facility] [address] [place] [address], [facility] [phone] * (ABNORMAL) CBC W AUTO DIFFERENTIAL (10/31/2022 12:22 AM [facility]) WBC 19.6(H) 3.5 - 10.5 10? 3 /uL 10/31/2022 12:40 AM [facility] RBC 3.30(L) 3.80 - 5.20 10? 6 /uL 10/31/2022 12:40 AM [facility] Hemoglobin 9.9(L) 12.0 - 15.6 g/dL 10/31/2022 12:40 AM [facility] Hematocrit 30.4(L) 35.0 - 45.0 % 10/31/2022 12:40 AM [facility] MCV 92.1 80.7 - 98.3 fL 10/31/2022 12:40 AM [facility] MCH 30.0 26.7 - 34.0 pg 10/31/2022 12:40 AM [facility] MCHC 32.6 30.8 - 35.9 g/dL 10/31/2022 12:40 AM [facility] RDW-SD 50.4(H) 36.0 - 50.0 fL 10/31/2022 12:40 AM [facility] RDW-CV 15.3(H) 11.2 - 14.8 % 10/31/2022 12:40 AM [facility] Platelet Count 442(H) 150 - 400 10? 3 /uL 10/31/2022 12:40 AM [facility] MPV 9.5 9.4 - 12.9 fL 10/31/2022 12:40 AM [facility] nRBC Absolute 0.15(H) 0 10? 3 /uL 10/31/2022 12:40 AM [facility] nRBC Auto 0.8(H) 0 /100 WBC 10/31/2022 12:40 AM [facility] Neutrophils % 74.0(H) 35.0 - 70.0 % 10/31/2022 12:40 AM [facility] Lymphocytes % 13.5(L) 20.0 - 43.0 % 10/31/2022 12:40 AM [facility] Monocytes % 8.3 5.0 - 13.0 % 10/31/2022 12:40 AM [facility] Eosinophils % 1.4 0.0 - 6.0 % 10/31/2022 12:40 AM [facility] Basophil % 0.4 0.0 - 2.0 % 10/31/2022 12:40 AM [facility] Neutrophils Absolute 14.54(H) 1.60 - 7.00 10? 3 /uL 10/31/2022 12:40 AM [facility] Lymphocyte Absolute 2.65 1.10 - 3.90 10? 3 /uL 10/31/2022 12:40 AM [facility] Monocytes Absolute 1.63(H) 0.26 - 1.07 10? 3 /uL 10/31/2022 12:40 AM [facility] Eosinophils Absolute 0.28 0.00 - 0.47 10? 3 /uL 10/31/2022 12:40 AM [facility] Basophils Absolute 0.07 0.00 - 0.08 10? 3 /uL 10/31/2022 12:40 AM CDT [facility] Immature Granulocytes % 2.4(H) 0.0 - 1.0 % 10/31/2022 12:40 AM CDT [facility] Immature Granulocytes Absolute 0.47 10/31/2022 12:40 AM CDT [facility] Blood BLOOD SPECIMEN / Unknown Venipuncture / Unknown 10/31/2022 12:22 AM CDT 10/31/2022 12:30 AM CDT Emir Vail MD LAB - HEMATOLOGY ORD ERAJESSE [address] [address], [facility] [phone] * PHOSPHORUS BLOOD (10/31/2022 12:22 AM CDT) Phosphorus 4.1 2.9 - 5.1 mg/dL 10/31/2022 12:57 AM CDT [facility] Blood BLOOD SPECIMEN / Unknown Venipuncture / Unknown 10/31/2022 12:22 AM CDT 10/31/2022 12:30 AM CDT Emir Vail MD LAB - CHEMISTRY [place] BLACKMAN Performing Organization Address City/[facility]/ZIP Co de Phone Number [address] [address], [place] [phone] * MAGNESIUM BLOOD (10/31/2022 12:22 AM CDT) Magnesium 1.9 1.6 - 2.6 mg/dL 10/31/2022 12:57 AM CDT [facility] Blood BLOOD SPECIMEN / Unknown Venipuncture / Unknown 10/31/2022 12:22 AM CDT 10/31/2022 12:30 AM CDT Emir Vail MD LAB - CHEMISTRY [place] BLACKMAN [address] [address], [facility] [phone] * PTT [facility] (10/30/2022 9:24 PM CDT) APTT 25.8 23.0 - 38.4 Seconds 10/30/2022 9:55 PM CDT [facility] Comment:Suggested therapeuti c range for full dose I.V. unfractionated heparin therapy for venous thromboembolism is 71 to 109 seconds. Blood BLOOD SPECIMEN / Unknown Venipuncture / Unknown 10/30/2022 9:24 PM CDT 10/30/2022 9:36 PM CDT Good Antunez MD LAB - COAGULATION OR DERABLES [address] [address], [facility] [phone] * PTT [facility] (10/30/2022 8:32 PM CDT) APTT 27.9 23.0 - 38.4 Seconds 10/30/2022 9:06 PM CDT [facility] Comment:Suggested therapeuti c range for full dose I.V. unfractionated heparin therapy for venous thromboembolism is 71 to 109 seconds. Blood BLOOD SPECIMEN / Unknown Venipuncture / Unknown 10/30/2022 8:32 PM CDT 10/30/2022 8:41 PM CDT Good Antunez MD LAB - COAGULATION OR DERABLES [address] [address], [facility] [phone] * CT HEAD WO CONTRAST (10/30/2022 8:22 [...] frontal gyrus/frontal operculum, consistent with an evolving mqtkhnrf-mk-ascvvtu infarct. 4.No significant midline shift. Similar-appearing size and configuration of the ventricles without evidence of hydrocephalus. Basal cisterns are patent. 5.No other convincing change. Partially imaged left nasoenteric tube. 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 4.No significant midline shift. Similar-appearing size and configurationof the ventricles without evidence of hydrocephalus. Basal cisterns are patent. 5.No other convincing change. Partially imaged left nasoenteric tube. > Interpreting Provider: Amanda Real MD, PhD on 10/31/2022 1:26 AM Jim Walter MD CT ORDERABLES * (ABNORMAL) PTT [facility] (10/30/2022 4:59 PM CDT) APTT 175.2(HH) 23.0 - 38.4 Seconds 10/30/2022 5:47 PM CDT [facility] Comment:Suggested therapeuti c range for full dose I.V. unfractionated heparin therapy for venous thromboembolism is 71 to 109 seconds. Blood BLOOD SPECIMEN / Unknown Venipuncture / Unknown 10/30/2022 4:59 PM CDT 10/30/2022 5:11 PM CDT Good Antunez MD LAB - COAGULATION OR DERABLES [facility] [address] [place] [address], [facility] [phone] * FL GLENN Llamas ANGIO TEAM (10/30/2022 2:40 PM CDT) Narrative [facility] RADIOLOGY - 10/30/2022 2:56 PM CDT Fluoroscopy was used for this exam in the OR. Please see the Operative report. Valdez Clay MD FLUOROSCOPY ORDERA BLES Performing Organization Address [facility]/ZIP Co de Phone Number [facility] * TRANSFUSE RED BLOOD CELL LEUKOREDUCED UNIT(S) (10/30/2022 2:20 PM CDT) Valdez Clay MD NURSING - BLOOD SD OD TRANSFUSION * TRANSFUSE RED BLOOD CELL LEUKOREDUCED UNIT(S) (10/30/2022 1:53 PM CDT) Valdez Clay MD NURSING - BLOOD SD OD TRANSFUSION * ACT LR - POCT ([facility]) (10/30/2022 1:50 PM CDT) ACT LR 287 See result comments sec 10/30/2022 6:37 PM CDT [facility] Blood BLOOD SPECIMEN / Unknown 10/30/2022 1:50 PM CDT 10/30/2022 6:37 PM CDT Narrative [facility] - 10/30/2022 6:37 PM CDT ACT-LR Therapeutics ranges are: Cardiac tag and label cutter = 200-300 seconds Sheath pull = ACT [...] - COAGULATION O RDERABLES Performing Organization Address City/[facility]/ZIP Co de Phone Number [facility] [address] [place] [address], [place] [phone] * (ABNORMAL) BLOOD GAS+COOX+LYTES+METAB ARTERIAL POCT (10/30/2022 1:33 PM CDT) pH Arterial 7.40 7.35 - 7.45 pH 10/30/2022 1:33 PM [facility] pO2 Arterial 228(H) 80 - 100 mmHg 10/30/2022 1:33 PM [facility] pCO2 Arterial 39 35 - 45 mmHg 1:33 PM [facility] HCO3 Arterial 24.2 20.0 - 30.0 mmol/L 10/30/2022 1:33 PM [facility] BE Arterial -0.5 -2.0 - 2.0 mmol/L 10/30/2022 1:33 PM [facility] Oxyhemoglobin Arterial 97.5 % 10/30/2022 1:33 PM [facility] Dexoyhemoglobin (HHB) % <1.0 % 10/30/2022 1:33 PM [facility] Methemoglobin <0.8 0.0 - 2.0 % 10/30/2022 1:33 PM [facility] Carboxyhemoglobin 1.4 0.0 - 2.0 % 2022 1:33 PM [facility] Comment:Carboxyhemoglobin No rmal Concentration: Non-smokers: 0-2%; Smokers: 0- 9%; Toxic: >20% O2 Content Arterial 11.3 Interpret within clinical context ml/dL 10/30/2022 1:33 PM [facility] Hemoglobin by COOX 7.8(L) 12.0 - 15.6 g/dL 10/30/2022 1:33 PM [facility] O2 Saturation Arterial 100 90 - 100 % 10/30/2022 1:33 PM [facility] Sodium Whole Blood 140 135 - 145 mmol/L 10/30/2022 1:33 PM [facility] Potassium Whole Blood 4.4 3.5 - 5.5 mmol/L 10/30/2022 1:33 PM [facility] Chloride WB 108(H) 78 - 107 mmol/L 10/30/2022 1:33 PM [facility] Calcium Ionized 1.30 mmol/L 1:33 PM [facility] Ionized Calcium pH Adjusted 1.30 1.19 - 1.34 mmol/L 10/30/2022 1:33 PM CDT [facility] Anion Gap (AG) Arterial 12 8 - 18 mmol/L 10/30/2022 1:33 PM CDT [facility] Glucose WB 127(H) 70 - 115 mg/dL 10/30/2022 1:33 PM CDT [facility] Lactic Acid Whole Blood 0.9 <=2.0 mmol/L 10/30/2022 1:33 PM CDT [facility] Blood, arterial ARTERIAL BLOOD SPECIMEN / Unknown 10/30/2022 1:33 PM CDT 10/30/2022 1:34 PM CDT Jim Walter MD LAB - POINT OF CARE ORDERABLES Performing Organization Address [facility]/ZIP Co de Phone Number [address] [address], [place] [phone] * ACT LR - POCT ([facility]) (10/30/2022 1:32 PM CDT) ACT LR 171 See result comments sec 10/30/2022 6:37 PM CDT [facility] Blood BLOOD SPECIMEN / Unknown 10/30/2022 1:32 PM CDT 10/30/2022 6:37 PM CDT Narrative [facility] - 10/30/2022 6:37 PM CDT ACT-LR Therapeutics ranges are: Cardiac tag and label cutter = 200-300 seconds Sheath pull = ACT [...] - COAGULATION O RDERABLES Performing Organization Address City/[facility]/ZIP Co de Phone Number [address] [address], [place] [phone] * (ABNORMAL) BLOOD GAS+COOX+LYTES+METAB ARTERIAL POCT (10/30/2022 12:59 PM CDT) pH Arterial 7.33(L) 7.35 - 7.45 pH 10/30/2022 12:59 PM [facility] pO2 Arterial 208(H) 80 - 100 mmHg 10/30/2022 12:59 PM [facility] pCO2 Arterial 49(H) 35 - 45 mmHg 12:59 PM [facility] HCO3 Arterial 25.8 20.0 - 30.0 mmol/L 10/30/2022 12:59 PM [facility] BE Arterial -0.2 -2.0 - 2.0 mmol/L 10/30/2022 12:59 PM [facility] Oxyhemoglobin Arterial 95.7 % 10/30/2022 12:59 PM [facility] Dexoyhemoglobin (HHB) % 1.6 % 10/30/2022 12:59 PM [facility] Methemoglobin 1.4 0.0 - 2.0 % 10/30/2022 12:59 PM [facility] Carboxyhemoglobin 1.3 0.0 - 2.0 % 2022 12:59 PM [facility] Comment:Carboxyhemoglobin No rmal Concentration: Non-smokers: 0-2%; Smokers: 0- 9%; Toxic: >20% O2 Content Arterial 10.2 Interpret within clinical context ml/dL 10/30/2022 12:59 PM [facility] Hemoglobin by COOX 7.2(L) 12.0 - 15.6 g/dL 10/30/2022 12:59 PM [facility] O2 Saturation Arterial 98 90 - 100 % 10/30/2022 12:59 PM [facility] Sodium Whole Blood 139 135 - 145 mmol/L 10/30/2022 12:59 PM [facility] Potassium Whole Blood 4.2 3.5 - 5.5 mmol/L 10/30/2022 12:59 PM [facility] Chloride WB 109(H) 78 - 107 mmol/L 10/30/2022 12:59 PM [facility] Calcium Ionized 1.08 mmol/L 12:59 PM CDT [facility] Ionized Calcium pH Adjusted 1.05(L) 1.19 - 1.34 mmol/L 10/30/2022 12:59 PM CDT [facility] Anion Gap (AG) Arterial 8 8 - 18 mmol/L 10/30/2022 12:59 PM CDT [facility] Glucose WB 133(H) 70 - 115 mg/dL 10/30/2022 12:59 PM CDT [facility] Lactic Acid Whole Blood 0.7 <=2.0 mmol/L 10/30/2022 12:59 PM CDT [facility] Blood, arterial ARTERIAL BLOOD SPECIMEN / Unknown 10/30/2022 12:59 PM CDT 10/30/2022 1:00 PM CDT Jim Walter MD LAB - POINT OF CARE ORDERABLES Performing Organization Address [facility] Co de Phone Number [address] [address], [place] [phone] * ACT LR - POCT ([facility]) (10/30/2022 12:57 PM CDT) ACT LR 228 See result comments sec 10/30/2022 6:37 PM CDT [facility] Blood BLOOD SPECIMEN / Unknown 10/30/2022 12:57 PM CDT 10/30/2022 6:37 PM CDT Narrative [facility] - 10/30/2022 6:37 PM CDT ACT-LR Therapeutics ranges are: Cardiac tag and label cutter = 200-300 seconds Sheath pull = ACT [...] - COAGULATION O RDERABLES Performing Organization Address City/[facility]/ZIP Co de Phone Number [address] [address], [place] [phone] * BLOOD GAS ART+LYTES+METAB+COOX POC NOTIF (10/30/2022 12:50 PM CDT) Comment Notification Label Only - See Separate Report 10/30/2022 2:02 PM CDT [facility] Other MISCELLANEOUS SAMPLES / Unknown 10/30/2022 12:50 PM CDT 10/30/2022 12:54 PM CDT Manuel Ramirez MD LAB - BLOOD GASES ORDERABLES [facility] [address] [place] [address], [place] [phone] * ACT LR - POCT ([facility]) (10/30/2022 12:26 PM CDT) ACT LR 260 See result comments sec 10/30/2022 6:37 PM CDT [facility] Blood BLOOD SPECIMEN / Unknown 10/30/2022 12:26 PM CDT 10/30/2022 6:37 PM CDT Narrative [facility] - 10/30/2022 6:37 PM CDT ACT-LR Therapeutics ranges are: Cardiac tag and label cutter = 200-300 seconds Sheath pull = ACT [...] Walter MD LAB - COAGULATION O RDERABLES [facility] [address] [place] [address], [place] [phone] * PATHOLOGY TISSUE (10/30/2022 12:18 PM CDT) Case Report Surgical Pathology Report ? Case: [id number] ? Authorizing Provider: ??Valdez Clay MD ?Collected: ? 10/30/2022 12:18 PM ? Ordering Location: ? [facility] ICU ? Received: ?10/30/2022 01:28 PM ? Pathologist: ? Rayna Barrera MD ? Specimen: ?Thrombus, right femoral thrombus ? 11/04/2022 6:13 PM CDT [facility] Final Diagnosis Thrombus, right femoral, thrombectomy (A): - Thrombus 11/04/2022 6:13 PM [facility] Microscopic Description and Comment Microscopic examination substantiates the final diagnosis. 11/04/2022 6:13 PM CDT [facility] Clinical History The patient is a 41 year old woman with right common femoral thrombosis. 11/04/2022 6:13 PM CDT [facility] Gross Description The requisition and specimen(s) are identified with the patient's name, Consuelo Darby. Received in formalin, specimen A , 1.7 x 0.7 x 0.3 cm aggregate of pink-duncan to red thrombus material. Entirely submitted in cassette A1. RB/CC 11/04/2022 6:13 PM CDT [facility] Pathologist Location [facility] 11/04/2022 6:13 PM CDT [facility] Disclaimer The performance characteristics of all immunohistochemical and indirect immunofluorescence stains (if any) cited in this report were determined by the Histopathology Laboratory of [facility]. Some of these tests were developed by [...] attending (teaching) pathologist. 11/04/2022 6:13 PM CDT [facility] Embedded Images 11/04/2022 6:13 PM CDT [facility] Resection without Tumor THROMBUS / Unknown 10/30/2022 12:18 PM CDT 10/30/2022 1:28 PM CDT Comment:Pre-op diagnosis: Critical limb-threatening ischemia Valdez Clay MD LAB - PATHOLOGY/ARJUN ROLON ORDERABLES [facility] [address] [phone] * ACT LR - POCT ([facility]) (10/30/2022 12:16 PM CDT) ACT LR 223 See result comments sec 10/30/2022 6:37 PM CDT [facility] Blood BLOOD SPECIMEN / Unknown 10/30/2022 12:16 PM CDT 10/30/2022 6:37 PM CDT Narrative [facility] - 10/30/2022 6:37 PM CDT ACT-LR Therapeutics ranges are: Cardiac tag and label cutter = 200-300 seconds Sheath pull = ACT [...] O DIONI Performing Organization Address [facility] [place]/[facility]/ZIP Co de Phone Number [address] [address], [place] [phone] * ACT LR - POCT ([facility]) (10/30/2022 12:07 PM CDT) ACT LR 121 See result comments sec 10/30/2022 6:37 PM CDT [facility] Blood BLOOD SPECIMEN / Unknown 10/30/2022 12:07 PM CDT 10/30/2022 6:37 PM CDT Narrative [facility] - 10/30/2022 6:37 PM CDT ACT-LR Therapeutics ranges are: Cardiac tag and label cutter = 200-300 seconds Sheath pull = ACT [...] O DIONI Performing Organization Address [facility] [place]/[facility]/ZIP Co de Phone Number [address] [address], [place] [phone] * PREPARE (CROSSMATCH) RBC UNIT(S), 1 Units (10/30/2022 10:38 AM CDT) Unit Description AS1 LR PRBC [facility] Unit ABO B [facility] Unit Rh POS [facility] Product Number R02 [facility] Unit Donor # [id number] [facility] Unit Status transfused [facility] Product Code [id number] [facility] Blood Type Barcode 7300 [facility] B[facility] LAB Expiration Date [id number] S BLOOD BANK LAB Blood Bank BLOOD SPECIMEN / Unknown 10/29/2022 11:32 AM CDT Jim Walter MD LAB - BLOOD BANK OR DERABLES Performing Organization Address [facility] Co de Phone Number [facility] BLOOD [facility]ANK LAB [address] [place] [address], [facility] [phone] * (ABNORMAL) PTT [facility] (10/30/2022 8:39 AM CDT) APTT 96.2(H) 23.0 - 38.4 Seconds 10/30/2022 9:23 AM CDT [facility] Comment:Suggested therapeuti c range for full dose I.V. unfractionated heparin therapy for venous thromboembolism is 71 to 109 seconds. Blood BLOOD SPECIMEN / Unknown Venipuncture / Unknown 10/30/2022 8:39 AM CDT 10/30/2022 8:44 AM CDT Good Antunez MD LAB - COAGULATION OR DERABLES Performing Organization Address [facility] de Phone Number [address] [address], [facility] [phone] * PT-INR [facility] (10/30/2022 2:37 AM CDT) PT 13.6 12.1 - 14.8 Seconds 10/30/2022 3:26 AM CDT [facility] INR 1.0 See Comment 10/30/2022 3:26 AM CDT [facility] Comment:The suggested therap eutic range [...] OR DERABLES Performing Organization Address [facility] Co de Phone Number [address] [place] [address], [place] [phone] * (ABNORMAL) PTT [facility] (10/30/2022 2:37 AM CDT) [facility] APTT 77.7(H) 23.0 - 38.4 Seconds 10/30/2022 3:26 AM CDT [facility] Comment:Suggested therapeuti c range for full dose I.V. unfractionated heparin therapy for venous thromboembolism is 71 to 109 seconds. Blood BLOOD SPECIMEN / Unknown Venipuncture / Unknown 10/30/2022 2:37 AM CDT 10/30/2022 2:46 AM CDT Good Antunez MD LAB - COAGULATION OR DERABLES Performing Organization Address [facility]/ZIP Co de Phone Number [facility] [address] [place] [address], [facility] [phone] * HCG BETA BLOOD QUANTITATIVE (10/30/2022 12:17 AM CDT) [facility] Beta-hCG Total Quantitative <3 mIU/mL 10/30/2022 1:14 AM CDT [facility] Comment: HCG Numeric Result Interpretation: ? Non- [...] Walter MD LAB - CHEMISTRY ORD ERABLES [facility] [address] [place] [address], [place] [phone] * (ABNORMAL) DIFFERENTIAL MANUAL (10/30/2022 12:17 AM CDT) WBC (corrected for NRBC) 17.9 10? 3 /uL 10/30/2022 1:27 AM [facility] Total Cell Count 100 10/31/19 1:27 AM [facility] Neutrophils Absolute Manual 11.46(H) 1.60 - 7.00 10? 3 /uL 10/30/2022 1:27 AM [facility] Comment:(BANDS+SEGS) x WBC = NEUT # (ANC) Lymphocyte Absolute Manual 4.83(H) 1.10 - 3.90 10? 3 /uL 10/30/2022 1:27 AM [facility] Monocytes Absolute Manual 0.90 0.26 - 1.07 10? 3 /uL 10/30/2022 1:27 AM [facility] Basophil Absolute Manual 0.18(H) 0.00 - 0.08 10? 3 /uL 10/30/2022 1:27 AM [facility] Band % Manual 3 0 - 10 % 10/30/2022 1:27 AM [facility] Neutrophil % Manual 61 35 - 70 % 10/30/2022 1:27 AM [facility] Lymphocyte % Manual 27 20 - 43 % 10/30/2022 1:27 AM [facility] Monocytes % Manual 5 5 - 13 % 10/30/2022 1:27 AM [facility] Basophils % Manual 1 0 - 2 % 10/30/2022 1:27 AM [facility] Metamyelocyte % Manual 1(H) 0 % 10/30/2022 1:27 AM [facility] Myelocytes % Manual 2(H) 0 % 10/30/2022 1:27 AM [facility] nRBC Manual 1(H) 0 /100 WBC 10/30/2022 1:27 AM [facility] Platelet Estimate Increased(A ) Adequate 10/30/2022 1:27 AM [facility] Anisocytosis Occasional( A) None 10/30/2022 1:27 AM [facility] Macrocytosis Few(A) None 10/30/2022 1:27 AM [facility] Polychromasia Few(A) None 10/30/2022 1:27 AM [facility] [place] Bodies Rare(A) None 10/30/2022 1:27 AM [facility] Ovalocytes Rare(A) None 10/30/2022 1:27 AM [facility] Eduardo Cells Occasional( A) None 10/30/2022 1:27 AM [facility] Smudge Cells Rare(A) None 10/30/2022 1:27 AM [facility] Comment Platelet Platelet clumpled on the smear but appear increased. 10/30/2022 1:27 AM [facility] Blood BLOOD SPECIMEN / Unknown Venipuncture / Unknown 10/30/2022 12:17 AM CDT 10/30/2022 12:28 AM CDT Emir Vail MD LAB - HEMATOLOGY ORD ERABLES [facility] [address] [place] [address], [facility] [phone] * (ABNORMAL) BASIC METABOLIC PANEL (CALCIUM TOTAL) (10/30/2022 12:17 AM CDT) BUN 11 7 - 26 mg/dL 10/30/2022 1:03 AM [facility] Creatinine 0.61 0.56 - 0.96 mg/dL 10/30/2022 1:03 AM [facility] Sodium 141 136 - 145 mmol/L 10/30/2022 1:03 AM [facility] Potassium 4.0 3.5 - 4.5 mmol/L 10/30/2022 1:03 AM [facility] Chloride 107 98 - 107 mmol/L 10/30/2022 1:03 AM [facility] CO2 25 22 - 29 mmol/L 10/30/2022 1:03 AM [facility] Glucose 134(H) 70 - 115 mg/dL 10/30/2022 1:03 AM [facility] Calcium 8.8 8.4 - 10.2 mg/dL 10/30/2022 1:03 AM [facility] Anion Gap 13 8 - 18 10/30/2022 1:03 AM [facility] BUN/Creatinine Ratio 18 7 - 23 10/30/2022 1:03 AM [facility] Osmolality Calculated 293 270 - 300 mOsm/kg 10/30/2022 1:03 AM [facility] eGFR by CKD-EPI >90 >=90 mL/min/1.7 3 m2 10/30/2022 1:03 AM [facility] Blood BLOOD SPECIMEN / Unknown Venipuncture / Unknown 10/30/2022 12:17 AM CDT 10/30/2022 12:29 AM CDT Emir Vail MD LAB - CHEMISTRY ORDE HIRAL [facility] Organization Address City/State/ZIP Co de Phone Number [facility] [address] [place] [address], [facility] [phone] * (ABNORMAL) CBC W AUTO DIFFERENTIAL (10/30/2022 12:17 AM CDT) WBC 17.9(H) 3.5 - 10.5 10? 3 /uL 10/30/2022 12:45 AM [facility] Comment:The WBC count is cor rected by the instrument for nRBC's RBC 2.53(L) 3.80 - 5.20 10? 6 /uL 10/30/2022 12:45 AM [facility] Hemoglobin 7.6(L) 12.0 - 15.6 g/dL 10/30/2022 12:45 AM [facility] Hematocrit 24.3(L) 35.0 - 45.0 % 10/30/2022 12:45 AM [facility] MCV 96.0 80.7 - 98.3 fL 10/30/2022 12:45 AM [facility] MCH 30.0 26.7 - 34.0 pg 10/30/2022 12:45 AM [facility] MCHC 31.3 30.8 - 35.9 g/dL 10/30/2022 12:45 AM [facility] RDW-SD 47.9 36.0 - 50.0 fL 10/30/2022 12:45 AM CDT [facility] RDW-CV 13.8 11.2 - 14.8 % 10/30/2022 12:45 AM CDT [facility] Platelet Count 586(H) 150 - 400 10? 3 /uL 10/30/2022 12:45 AM CDT [facility] MPV 10.4 9.4 - 12.9 fL 10/30/2022 12:45 AM CDT [facility] nRBC Absolute 0.18(H) 0 10? 3 /uL 10/30/2022 12:45 AM CDT [facility] nRBC Auto 1.0(H) 0 /100 WBC 10/30/2022 12:45 AM CDT [facility] Blood BLOOD SPECIMEN / Unknown Venipuncture / Unknown 10/30/2022 12:17 AM CDT 10/30/2022 12:28 AM CDT Emir Vail MD LAB - HEMATOLOGY ORD ERABLES [address] [address], [facility] [phone] * PHOSPHORUS BLOOD (10/30/2022 12:17 AM CDT) Phosphorus 5.1 2.9 - 5.1 mg/dL 10/30/2022 1:03 AM CDT [facility] Blood BLOOD SPECIMEN / Unknown Venipuncture / Unknown 10/30/2022 12:17 AM CDT 10/30/2022 12:29 AM CDT Emir Vail MD LAB - CHEMISTRY ORDE RABKAR[facility] [address] [address], [place] [phone] * MAGNESIUM BLOOD (10/30/2022 12:17 AM CDT) Magnesium 2.1 1.6 - 2.6 mg/dL 10/30/2022 1:03 AM T [facility] Blood BLOOD SPECIMEN / Unknown Venipuncture / Unknown 10/30/2022 12:17 AM CDT 10/30/2022 12:29 AM CDT Emir Vail MD LAB - CHEMISTRY BIBIANA BLACKMAN Performing Organization Address City/[facility]/ZIP Co de Phone Number [facility] [address] [place] [address], [place] [phone] * (ABNORMAL) PTT [facility] (10/29/2022 8:02 PM CDT) APTT 70.7(H) 23.0 - 38.4 Seconds 10/29/2022 8:41 PM CDT [facility] Comment:Suggested therapeuti c range for full dose I.V. unfractionated heparin therapy for venous thromboembolism is 71 to 109 seconds. Blood BLOOD SPECIMEN / Unknown Venipuncture / Unknown 10/29/2022 8:02 PM CDT 10/29/2022 8:14 PM CDT Good Antunez MD LAB - COAGULATION OR DERABLES Performing Organization Address [facility]/ZIP Co de Phone Number [facility] [address] [place] [address], [place] [phone] * (ABNORMAL) PTT [facility] (10/29/2022 3:41 PM CDT) APTT 64.4(H) 23.0 - 38.4 Seconds 10/29/2022 4:28 PM CDT [facility] Comment:Suggested therapeuti c range for full dose I.V. unfractionated heparin therapy for venous thromboembolism is 71 to 109 seconds. Blood BLOOD SPECIMEN / Unknown Venipuncture / Unknown 10/29/2022 3:41 PM CDT 10/29/2022 3:48 PM CDT Good Antunez MD LAB - COAGULATION OR DERABLES Performing Organization Address City/[facility]/ZIP Co de Phone Number [facility] [address] [place] [address], [place] [phone] * TYPE + SCREEN PANEL (10/29/2022 11:19 AM CDT) Antibody Screen NEG 12:14 PM CDT [facility] BLOOD BANK LAB ABO Rh B POS 10/29/2022 12:14 PM CDT [facility] BLOOD [facility] LAB Blood Bank BLOOD SPECIMEN / Unknown Venipuncture / Unknown 10/29/2022 11:19 AM CDT 10/29/2022 11:32 AM CDT Jim Walter MD LAB - BLOOD BANK OR DERABLES [facility] BLOOD [facility] LAB [address] [place] [address], [facility] [phone] * XR CHEST 1VW PORTABLE (10/29/2022 10:29 AM CDT) Anatomical Region Laterality Modality Chest Radiographic Irene ging 10/29/2022 11:3 8 AM CDT Narrative 10/29/2022 12:59 PM CDT PROCEDURE: ??XR CHEST 1VW PORTABLE, DATE/TIME OF EXAM: ??10/29/2022 10:29 AM, LOCATION ??[facility] INDICATION: R09.02: Hypoxia ADDITIONAL CLINICAL INFORMATION: Ordering Provider Reason For Exam: ??evaluate for hypoxia COMPARISON: Chest x-ray from 10/27/2022 FINDINGS/IMPRESSION: Enteric tube is seen coursing over the diaphragm without visualization of the distal tip. There is no focal consolidation, pleural effusion, or pneumothorax. The cardiomediastinal silhouette is normal. Report dictated by Jacques Russell DO (residential installer). I, Jacques Cole DO have personally reviewed and interpreted this examination/study. > Interpreting Provider: Jacques Cole DO on 10/29/2022 12:59 PM Procedure Note Jacques Cole DO - 10/29/2022 PROCEDURE: XR CHEST 1VW PORTABLE, DATE/TIME OF EXAM: 10/29/2022 10:29AM, LOCATION [facility] INDICATION: R09.02: Hypoxia ADDITIONAL CLINICAL INFORMATION: Ordering Provider Reason For Exam: evaluate for hypoxia COMPARISON: Chest x-ray from 10/27/2022 FINDINGS/IMPRESSION: Enteric tube is seen coursing over the diaphragm without visualizationof the distal tip. There is no focal consolidation, pleural effusion, or pneumothorax. The cardiomediastinal silhouette is normal. Report dictated by Jacques Russell DO (residential installer). I, Jacques Cole DO have personally reviewed and interpreted this examination/study. > Interpreting Provider: Jacques Cole DO on 10/29/2022 12:59 PM Jim Walter MD DIAGNOSTIC IMAGING ORDERABLES * (ABNORMAL) PTT [facility] (10/29/2022 10:04 AM CDT) APTT 60.5(H) 23.0 - 38.4 Seconds 10/29/2022 10:38 AM CDT [facility] Comment:Suggested therapeuti c range for full dose I.V. unfractionated heparin therapy for venous thromboembolism is 71 to 109 seconds. Blood BLOOD SPECIMEN / Unknown Venipuncture / Unknown 10/29/2022 10:04 AM CDT 10/29/2022 10:11 AM CDT Good Antunez MD LAB - COAGULATION OR DERABLES [facility] [address] [place] [address], [facility] [phone] * PT-INR [facility] (10/29/2022 2:14 AM CDT) PT 13.2 12.1 - 14.8 Seconds 10/29/2022 2:49 AM CDT [facility] INR 1.0 See Comment 10/29/2022 2:49 AM CDT [facility] Comment:The suggested therap eutic range for standard coumadin (warfarin) therapy is an INR of 2.0-3.0. For high-risk patients (Mechanical Mitral Valve Prosthesis, etc.), the suggested prophylactic therapeutic range is an INR of 2.5-3.5. Blood BLOOD SPECIMEN / Unknown Venipuncture / Unknown 10/29/2022 2:14 AM CDT 10/29/2022 2:24 AM CDT Emir Vail MD LAB - COAGULATION OR DERABLES Performing Organization Address [facility]/ZIP Co de Phone Number [address] [address], [facility] [phone] * (ABNORMAL) PTT [facility] (10/29/2022 2:14 AM CDT) APTT 60.3(H) 23.0 - 38.4 Seconds 10/29/2022 2:49 AM T [facility] Comment:Suggested therapeuti c range for full dose I.V. unfractionated heparin therapy for venous thromboembolism is 71 to 109 seconds. Blood BLOOD SPECIMEN / Unknown Venipuncture / Unknown 10/29/2022 2:14 AM CDT 10/29/2022 2:24 AM CDT Good Antunez MD LAB - COAGULATION OR DERABLES Performing Organization Address [facility] Co de Phone Number [address] [address], [facility] [phone] * (ABNORMAL) DIFFERENTIAL MANUAL (10/29/2022 12:10 AM CDT) Pathologist [facility] WBC (corrected for NRBC) 21.3 10? 3 /uL 10/29/2022 1:20 AM [facility] Total Cell Count 100 10/30/19 1:20 AM [facility] Neutrophils Absolute Manual 13.42(H) 1.60 - 7.00 10? 3 /uL 10/29/2022 1:20 AM [facility] Comment:(BANDS+SEGS) x WBC = NEUT # (ANC) Lymphocyte Absolute Manual 4.90(H) 1.10 - 3.90 10? 3 /uL 10/29/2022 1:20 AM [facility] Monocytes Absolute Manual 1.92(H) 0.26 - 1.07 10? 3 /uL 10/29/2022 1:20 AM [facility] Eosinophils Absolute Manual 0.64(H) 0.00 - 0.47 10? 3 /uL 10/29/2022 1:20 AM [facility] Band % Manual 3 0 - 10 % 10/29/2022 1:20 AM [facility] Neutrophil % Manual 60 35 - 70 % 10/29/2022 1:20 AM [facility] Lymphocyte % Manual 23 20 - 43 % 10/29/2022 1:20 AM [facility] Monocytes % Manual 9 5 - 13 % 10/29/2022 1:20 AM [facility] Eosinophils % Manual 3 0 - 6 % 10/29/2022 1:20 AM [facility] Metamyelocyte % Manual 2(H) 0 % 10/29/2022 1:20 AM [facility] nRBC Manual 1(H) 0 /100 WBC 10/29/2022 1:20 AM [facility] Platelet Estimate Increased (A) Adequate 10/29/2022 1:20 AM [facility] Macrocytosis 1+(A) None 10/29/2022 1:20 AM [facility] Polychromasia 1+(A) None 10/29/2022 1:20 AM [facility] Blood BLOOD SPECIMEN / Unknown Venipuncture / Unknown 10/29/2022 12:10 AM CDT 10/29/2022 12:16 AM CDT Emir Vail MD LAB - HEMATOLOGY ORD ERABLES [facility] [address] [place] [address], [facility] [phone] * (ABNORMAL) BASIC METABOLIC PANEL (CALCIUM TOTAL) (10/29/2022 12:10 AM CDT) BUN 9 7 - 26 mg/dL 10/29/2022 12:44 AM [facility] Creatinine 0.54(L) 0.56 - 0.96 mg/dL 10/29/2022 12:44 AM [facility] Sodium 138 136 - 145 mmol/L 10/29/2022 12:44 AM [facility] Potassium 4.1 3.5 - 4.5 mmol/L 10/29/2022 12:44 AM [facility] Chloride 106 98 - 107 mmol/L 10/29/2022 12:44 AM [facility] CO2 24 22 - 29 mmol/L 10/29/2022 12:44 AM [facility] Glucose 110 70 - 115 mg/dL 10/29/2022 12:44 AM [facility] Calcium 8.8 8.4 - 10.2 mg/dL 10/29/2022 12:44 AM [facility] Anion Gap 12 8 - 18 10/29/2022 12:44 AM [facility] BUN/Creatinine Ratio 17 7 - 23 10/29/2022 12:44 AM [facility] Osmolality Calculated 285 270 - 300 mOsm/kg 10/29/2022 12:44 AM [facility] eGFR by CKD-EPI >90 >=90 mL/min/1.7 3 m2 10/29/2022 12:44 AM [facility] Blood BLOOD SPECIMEN / Unknown Venipuncture / Unknown 10/29/2022 12:10 AM CDT 10/29/2022 12:17 AM [facility] Emir Vail MD LAB - CHEMISTRY ORDE [facility] Organization Address City/State/ZIP Co de Phone Number [facility] [address] [place] [address], [facility] [phone] * (ABNORMAL) CBC W AUTO DIFFERENTIAL (10/29/2022 12:10 AM T) WBC 21.3(H) 3.5 - 10.5 10? 3 /uL 10/29/2022 12:32 AM [facility] RBC 2.54(L) 3.80 - 5.20 10? 6 /uL 10/29/2022 12:32 AM [facility] Hemoglobin 7.8(L) 12.0 - 15.6 g/dL 10/29/2022 12:32 AM [facility] Hematocrit 24.4(L) 35.0 - 45.0 % 10/29/2022 12:32 AM [facility] MCV 96.1 80.7 - 98.3 fL 10/29/2022 12:32 AM CDT [facility] MCH 30.7 26.7 - 34.0 pg 10/29/2022 12:32 AM [facility] MCHC 32.0 30.8 - 35.9 g/dL 10/29/2022 12:32 AM [facility] RDW-SD 47.9 36.0 - 50.0 fL 10/29/2022 12:32 AM [facility] RDW-CV 14.0 11.2 - 14.8 % 10/29/2022 12:32 AM [facility] Platelet Count 584(H) 150 - 400 10? 3 /uL 10/29/2022 12:32 AM T [facility] MPV 10.0 9.4 - 12.9 fL 10/29/2022 12:32 AM [facility] nRBC Absolute 0.13(H) 0 10? 3 /uL 10/29/2022 12:32 AM [facility] nRBC Auto 0.6(H) 0 /100 WBC 10/29/2022 12:32 AM [facility] Blood BLOOD SPECIMEN / Unknown Venipuncture / Unknown 10/29/2022 12:10 AM CDT 10/29/2022 12:16 AM CDT Emir Vail MD LAB - HEMATOLOGY ORD ERABLES [address] [address], [facility] [phone] * PHOSPHORUS BLOOD (10/29/2022 12:10 AM CDT) Phosphorus 4.8 2.9 - 5.1 mg/dL 10/29/2022 12:44 AM T [facility] Blood BLOOD SPECIMEN / Unknown Venipuncture / Unknown 10/29/2022 12:10 AM CDT 10/29/2022 12:17 AM CDT Emir Vail MD LAB - CHEMISTRY ORDE HIRAL [address] [place] [address], [place] [phone] * MAGNESIUM BLOOD (10/29/2022 12:10 AM CDT) Magnesium 2.0 1.6 - 2.6 mg/dL 10/29/2022 12:44 AM CDT [facility] Blood BLOOD SPECIMEN / Unknown Venipuncture / Unknown 10/29/2022 12:10 AM CDT 10/29/2022 12:17 AM CDT Emir Vail MD LAB - CHEMISTRY BIBIANA BLACKMAN [facility] [address] [place] [address], [facility] [phone] * XR ABDOMEN KUB (10/28/2022 11:13 PM CDT) Anatomical Region Laterality Modality Abdomen Radiographic Irene ging 10/29/2022 10:0 5 AM CDT Narrative 10/29/2022 12:49 PM CDT PROCEDURE: ??XR ABDOMEN KUB, DATE/TIME OF EXAM: ??10/28/2022 11:13 PM, LOCATION ??[facility] 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 Report dictated by Jacques Russell DO (residential installer). IJacques DO have personally reviewed and interpreted this examination/study. 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 Report dictated by Jacques Russell DO (residential installer). I, Jacques Cole DO have personally reviewed and interpreted this examination/study. > Interpreting Provider: Jacques Cole DO on 10/29/2022 12:49 PM Jim Walter MD DIAGNOSTIC IMAGING ORDERABLES * GLUCOSE - POINT OF CARE (10/28/2022 10:54 PM CDT) Pathologist [facility] Glucose WB/POC 105 70 - 115 mg/dL 10/28/2022 10:54 PM CDT [facility] Specimen Type Cap Fingerstick 2022 10:54 PM CDT [facility] Blood BLOOD SPECIMEN / Unknown 10/28/2022 10:54 PM CDT 10/28/2022 10:54 PM CDT Jim Walter MD LAB - POINT OF CARE ORDERABLES [facility] [address] [place] [address], [place] [phone] * (ABNORMAL) PTT [facility] (10/28/2022 9:00 PM CDT) APTT 62.1(H) 23.0 - 38.4 Seconds 10/28/2022 9:34 PM CDT [facility] Comment:Suggested therapeuti c range for full dose I.V. unfractionated heparin therapy for venous thromboembolism is 71 to 109 seconds. Blood BLOOD SPECIMEN / Unknown Venipuncture / Unknown 10/28/2022 9:00 PM CDT 10/28/2022 9:11 PM CDT Good Antunez MD LAB - COAGULATION OR DERABLES [facility] [address] [place] [address], [place] [phone] * (ABNORMAL) GLUCOSE - POINT OF CARE (10/28/2022 5:26 PM CDT) Glucose WB/POC 118(H) 70 - 115 mg/dL 10/28/2022 5:38 PM CDT [facility] Specimen Type Cap Fingerstick 2022 5:38 PM CDT [facility] Blood BLOOD SPECIMEN / Unknown 10/28/2022 5:26 PM CDT 10/28/2022 5:38 PM CDT Jim Walter MD LAB - POINT OF CARE ORDERABLES Performing Organization Address City/[facility]/ZIP Co de Phone Number [address] [address], [place] [phone] * (ABNORMAL) PTT [facility] (10/28/2022 3:54 PM CDT) APTT 63.4(H) 23.0 - 38.4 Seconds 10/28/2022 4:32 PM CDT [facility] Comment:Suggested therapeuti c range for full dose I.V. unfractionated heparin therapy for venous thromboembolism is 71 to 109 seconds. Blood BLOOD SPECIMEN / Unknown Venipuncture / Unknown 10/28/2022 3:54 PM CDT 10/28/2022 4:10 PM CDT Good Antunez MD LAB - COAGULATION OR DERABLES [address] [address], [place] [phone] * (ABNORMAL) GLUCOSE - POINT OF CARE (10/28/2022 12:05 PM CDT) Glucose WB/POC 125(H) 70 - 115 mg/dL 10/28/2022 12:12 PM CDT [facility] Specimen Type Cap Fingerstick 2022 12:12 PM CDT [facility] Blood BLOOD SPECIMEN / Unknown 10/28/2022 12:05 PM CDT 10/28/2022 12:12 PM CDT Jim Walter MD LAB - POINT OF CARE ORDERABLES Performing Organization Address [facility] [place]/[facility]/ZIP Co de Phone Number [address] [address], [facility] [phone] * (ABNORMAL) PTT [facility] (10/28/2022 9:20 AM CDT) APTT 72.8(H) 23.0 - 38.4 Seconds 10/28/2022 9:53 AM CDT [facility] Comment:Suggested therapeuti c range for full dose I.V. unfractionated heparin therapy for venous thromboembolism is 71 to 109 seconds. Blood BLOOD SPECIMEN / Unknown Venipuncture / Unknown 10/28/2022 9:20 AM CDT 10/28/2022 9:27 AM CDT Good Antunez MD LAB - COAGULATION OR DERABLES Performing Organization Address [facility] [place]/[facility] Co de Phone Number [address] [address], [facility] [phone] * VANCOMYCIN LEVEL TROUGH (10/28/2022 9:20 AM CDT) Vancomycin Trough 16.5 10.0 - 20.0 ug/mL 10/28/2022 10:29 AM CDT [facility] Blood BLOOD SPECIMEN / Unknown Venipuncture / Unknown 10/28/2022 9:20 AM CDT 10/28/2022 9:25 AM CDT Narrative [facility] - 10/28/2022 10:29 AM CDT See institution protocol. Dary Garvey MD LAB - CHEMISTRY B[place]NA BLACKMAN Performing Organization Address [facility] [place]/ZIP Co de Phone Number [address] [address], [facility] [phone] * CT HEAD WO CONTRAST (10/28/2022 5:27 [...] is dictated by Kayla Stevenson MD (residential installer) 1 I, Lonnie Rae MD have personally reviewed and interpreted this examination/study. > Interpreting Provider: Lonnie Rae MD on 10/28/2022 9:15 AM Narrative 10/28/2022 9:15 AM CDT PROCEDURE: ??CT HEAD WO CONTRAST, DATE/TIME OF EXAM: ??10/28/2022 5:28 AM, LOCATION ??[facility] INDICATION: Z91.89: At high risk for [...] DATE/TIME OF EXAM: 10/28/2022 5:28 AM, LOCATION [facility] INDICATION: Z91.89: At high risk for [...] is dictated by Kayla Stevenson MD (residential installer) 1 ILonnie MD have personally reviewed and interpreted this examination/study. > Interpreting Provider: Lonnie Rae MD on 10/28/2022 9:15 AM Emir Vail MD CT ORDERABLES * (ABNORMAL) GLUCOSE - POINT OF CARE (10/28/2022 4:52 AM CDT) Glucose WB/POC 151(H) 70 - 115 mg/dL 10/28/2022 4:57 AM CDT [facility] Specimen Type Cap Fingerstick 2022 4:57 AM CDT [facility] Blood BLOOD SPECIMEN / Unknown 10/28/2022 4:52 AM CDT 10/28/2022 4:57 AM CDT Jim Walter MD LAB - POINT OF CARE ORDERABLES [address] [address], [facility] [phone] * XR ABDOMEN KUB PORTABLE (10/28/2022 2:08 [...] Report dictated by Martell Shetty MD (residential installer). Jacques Ornelas DO have personally reviewed and interpreted this examination/study. 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 FINDINGS/IMPRESSION: Enteric tube courses below the diaphragm with the distal tipsuperimposing the antropyloric region. Report dictated by Martell Shetty MD (residential installer). Jacques Ornelas DO have personally reviewed and interpreted this examination/study. > Interpreting Provider: Jacques Cole DO on 10/28/2022 12:24 PM Jim Walter MD DIAGNOSTIC IMAGING ORDERABLES * (ABNORMAL) PTT [facility] (10/28/2022 1:25 AM CDT) APTT 81.6(H) 23.0 - 38.4 Seconds 10/28/2022 1:55 AM CDT [facility] Comment:Suggested therapeuti c range for full dose I.V. unfractionated heparin therapy for venous thromboembolism is 71 to 109 seconds. Blood BLOOD SPECIMEN / Unknown Venipuncture / Unknown 10/28/2022 1:25 AM CDT 10/28/2022 1:31 AM CDT Good Antunez MD LAB - COAGULATION OR DERABLES Performing Organization Address [facility] [place] de Phone Number [address] [address], [facility] [phone] * PT-INR [facility] (10/28/2022 1:25 AM CDT) PT 13.6 12.1 - 14.8 Seconds 10/28/2022 1:55 AM CDT [facility] INR 1.0 See Comment 10/28/2022 1:55 AM CDT [facility] Comment:The suggested therap eutic range for standard coumadin (warfarin) therapy is an INR of 2.0-3.0. For high-risk patients (Mechanical Mitral Valve Prosthesis, etc.), the suggested prophylactic therapeutic range is an INR of 2.5-3.5. Blood BLOOD SPECIMEN / Unknown Venipuncture / Unknown 10/28/2022 1:25 AM CDT 10/28/2022 1:31 AM CDT Emir Vail MD LAB - COAGULATION OR DERABLES Performing Organization Address [facility]/ZIP Co de Phone Number [address] [address], [place] [phone] * (ABNORMAL) BASIC METABOLIC PANEL (CALCIUM TOTAL) (10/28/2022 1:25 AM CDT) BUN 9 7 - 26 mg/dL 10/28/2022 1:57 AM [facility] Creatinine 0.54(L) 0.56 - 0.96 mg/dL 10/28/2022 1:57 AM [facility] Sodium 138 136 - 145 mmol/L 10/28/2022 1:57 AM [facility] Potassium 3.5 3.5 - 4.5 mmol/L 10/28/2022 1:57 AM [facility] Chloride 106 98 - 107 mmol/L 10/28/2022 1:57 AM [facility] CO2 26 22 - 29 mmol/L 10/28/2022 1:57 AM [facility] Glucose 134(H) 70 - 115 mg/dL 10/28/2022 1:57 AM [facility] Calcium 8.6 8.4 - 10.2 mg/dL 10/28/2022 1:57 AM [facility] Anion Gap 10 8 - 18 10/28/2022 1:57 AM [facility] BUN/Creatinine Ratio 17 7 - 23 10/28/2022 1:57 AM [facility] Osmolality Calculated 287 270 - 300 mOsm/kg 10/28/2022 1:57 AM [facility] eGFR by CKD-EPI >90 >=90 mL/min/1.7 3 m2 10/28/2022 1:57 AM [facility] Blood BLOOD SPECIMEN / Unknown Venipuncture / Unknown 10/28/2022 1:25 AM CDT 10/28/2022 1:31 AM T Emir Vail MD LAB - CHEMISTRY B[place]NA BLACKMAN [facility] Organization Address City/State/ZIP Co de Phone Number [facility] [address] [place] [address], [facility] [phone] * PHOSPHORUS BLOOD (10/28/2022 1:25 AM CDT) Pathologist [facility] Phosphorus 3.9 2.9 - 5.1 mg/dL 10/28/2022 1:57 AM CDT [facility] Blood BLOOD SPECIMEN / Unknown Venipuncture / Unknown 10/28/2022 1:25 AM CDT 10/28/2022 1:31 AM CDT Emir Vail MD LAB - CHEMISTRY [place] BLACKMAN [address] [address], [place] [phone] * MAGNESIUM BLOOD (10/28/2022 1:25 AM CDT) Magnesium 2.0 1.6 - 2.6 mg/dL 10/28/2022 1:57 AM CDT [facility] Blood BLOOD SPECIMEN / Unknown Venipuncture / Unknown 10/28/2022 1:25 AM CDT 10/28/2022 1:31 AM CDT Emir Vail MD LAB - CHEMISTRY [place] BLACKMAN [address] [address], [place] [phone] * (ABNORMAL) GLUCOSE - POINT OF CARE (10/28/2022 1:24 AM CDT) Glucose WB/POC 143(H) 70 - 115 mg/dL 10/28/2022 1:29 AM CDT [facility] Specimen Type Cap Fingerstick 2022 1:29 AM CDT [facility] Blood BLOOD SPECIMEN / Unknown 10/28/2022 1:24 AM CDT 10/28/2022 1:29 AM CDT Jim Walter MD LAB - POINT OF CARE ORDERABLES [address] [address], [place] [phone] * (ABNORMAL) DIFFERENTIAL MANUAL (10/27/2022 8:29 PM CDT) WBC (corrected for NRBC) 21.1 10? 3 /uL 10/27/2022 9:20 PM [facility] Total Cell Count 100 10/28/19 9:20 PM [facility] Neutrophils Absolute Manual 12.87(H) 1.60 - 7.00 10? 3 /uL 10/27/2022 9:20 PM [facility] Comment:(BANDS+SEGS) x WBC = NEUT # (ANC) Lymphocyte Absolute Manual 5.91(H) 1.10 - 3.90 10? 3 /uL 10/27/2022 9:20 PM [facility] Monocytes Absolute Manual 1.48(H) 0.26 - 1.07 10? 3 /uL 10/27/2022 9:20 PM [facility] Eosinophils Absolute Manual 0.42 0.00 - 0.47 10? 3 /uL 10/27/2022 9:20 PM [facility] Band % Manual 1 0 - 10 % 10/27/2022 9:20 PM [facility] Neutrophil % Manual 60 35 - 70 % 10/27/2022 9:20 PM [facility] Lymphocyte % Manual 28 20 - 43 % 10/27/2022 9:20 PM [facility] Monocytes % Manual 7 5 - 13 % 10/27/2022 9:20 PM [facility] Eosinophils % Manual 2 0 - 6 % 10/27/2022 9:20 PM [facility] Atypical Lymphocyte % Manual 1(H) 0 % 10/27/2022 9:20 PM [facility] Metamyelocyte % Manual 1(H) 0 % 10/27/2022 9:20 PM [facility] nRBC Manual 2(H) 0 /100 WBC 10/27/2022 9:20 PM [facility] Platelet Estimate Slightly Increased(A ) Adequate 10/27/2022 9:20 PM [facility] Anisocytosis Occasional( A) None 10/27/2022 9:20 PM [facility] Polychromasia Few(A) None 10/27/2022 9:20 PM [facility] Ovalocytes Occasional( A) None 10/27/2022 9:20 PM CDT [facility] Eduardo Cells Occasional( A) None 10/27/2022 9:20 PM [facility] Blood BLOOD SPECIMEN / Unknown Venipuncture / Unknown 10/27/2022 8:29 PM CDT 10/27/2022 8:36 PM CDT Jim Walter MD LAB - HEMATOLOGY OR DERABLES Performing Organization Address [facility] [place]/[facility] Co de Phone Number [facility] [address] [place] [address], [facility] [phone] * (ABNORMAL) CBC W AUTO DIFFERENTIAL (10/27/2022 8:29 PM CDT) WBC 21.1(H) 3.5 - 10.5 10? 3 /uL 10/27/2022 8:54 PM [facility] RBC 2.52(L) 3.80 - 5.20 10? 6 /uL 10/27/2022 8:54 PM [facility] Hemoglobin 7.6(L) 12.0 - 15.6 g/dL 10/27/2022 8:54 PM [facility] Hematocrit 24.2(L) 35.0 - 45.0 % 10/27/2022 8:54 PM [facility] MCV 96.0 80.7 - 98.3 fL 10/27/2022 8:54 PM [facility] MCH 30.2 26.7 - 34.0 pg 10/27/2022 8:54 PM [facility] MCHC 31.4 30.8 - 35.9 g/dL 10/27/2022 8:54 PM [facility] RDW-SD 47.9 36.0 - 50.0 fL 10/27/2022 8:54 PM [facility] RDW-CV 13.8 11.2 - 14.8 % 10/27/2022 8:54 PM [facility] Platelet Count 486(H) 150 - 400 10? 3 /uL 10/27/2022 8:54 PM [facility] MPV 10.6 9.4 - 12.9 fL 10/27/2022 8:54 PM CDT [facility] nRBC Absolute 0.11(H) 0 10? 3 /uL 10/27/2022 8:54 PM CDT [facility] nRBC Auto 0.5(H) 0 /100 WBC 10/27/2022 8:54 PM CDT [facility] Blood BLOOD SPECIMEN / Unknown Venipuncture / Unknown 10/27/2022 8:29 PM CDT 10/27/2022 8:36 PM CDT Jim Walter MD LAB - HEMATOLOGY OR DERABLES Performing Organization Address City/[facility]/ZIP Co de Phone Number [address] [address], [facility] [phone] * (ABNORMAL) PTT [facility] (10/27/2022 6:55 PM CDT) APTT 96.4(H) 23.0 - 38.4 Seconds 10/27/2022 7:28 PM CDT [facility] Comment:Suggested therapeuti c range for full dose I.V. unfractionated heparin therapy for venous thromboembolism is 71 to 109 seconds. Blood BLOOD SPECIMEN / Unknown Venipuncture / Unknown 10/27/2022 6:55 PM CDT 10/27/2022 7:06 PM CDT Jim Walter MD LAB - COAGULATION O RDERABLES [address] [address], [facility] [phone] * ANTITHROMBIN III ACTIVITY (10/27/2022 6:55 PM CDT) Antithrombin III Activity 91.0 80.0 - 120.0 % 10/27/2022 7:42 PM CDT [facility] Blood BLOOD SPECIMEN / Unknown Venipuncture / Unknown 10/27/2022 6:55 PM CDT 10/27/2022 7:06 PM CDT Narrative [facility] - 10/27/2022 7:42 PM CDT Thrombin inhibitors (i.e., hirudin, argatroban...) present in the sample to be tested may lead to an over-estimation of the AT level. Shahbaz Bowen MD LAB - COAGULATION OR DERABLES Performing Organization Address [facility] [place]/[facility]/ZIP Co de Phone Number [address] [address], [facility] [phone] * (ABNORMAL) GLUCOSE - POINT OF CARE (10/27/2022 4:56 PM CDT) Glucose WB/POC 143(H) 70 - 115 mg/dL 10/27/2022 4:57 PM CDT [facility] Specimen Type Cap Fingerstick 2022 4:57 PM CDT [facility] Blood BLOOD SPECIMEN / Unknown 10/27/2022 4:56 PM CDT 10/27/2022 4:57 PM CDT Jim Walter MD LAB - POINT OF CARE ORDERABLES Performing Organization Address [facility] [place]/[facility] Co de Phone Number [address] [address], [facility] [phone] * CULTURE URINE (10/27/2022 12:08 PM CDT) Pathologist [facility] Culture Urine No growth (<100 CFU/mL) ROSELIA 10/28/2022 10:36 PM CDT [facility] Urine URINE SPECIMEN OBTAINED BY CLEAN CATCH PROCEDURE / Unknown Collection / Unknown 10/27/2022 12:08 PM CDT 10/27/2022 12:17 PM CDT Emir Vail MD LAB - MICROBIOLOGY O RDERABLES Performing Organization Address City/[facility]/ZIP Co de Phone Number [facility] [address] [place] [address], [place] [phone] * (ABNORMAL) URINALYSIS REFLEX MICROSCOPIC REFLEX CULTURE (10/27/2022 12:08 PM CDT) Color UA Yellow Straw, Yellow 10/27/2022 1:14 PM CDT [facility] Clarity UA Slt Cloudy(A) Clear 10/27/2022 1:14 PM CDT [facility] Specific [place] UA 1.018 1.005 - 1.030 10/27/2022 1:14 PM CDT [facility] pH UA 6.0 5.0 - 8.0 pH 10/27/2022 1:14 PM CDT [facility] Protein UA Negative Negative 10/27/2022 1:14 PM CDT [facility] Glucose UA Negative Negative 10/27/2022 1:14 PM CDT [facility] Ketone UA Negative Negative 10/27/2022 1:14 PM CDT [facility] Bilirubin UA Negative Negative 10/27/2022 1:14 PM CDT [facility] Blood UA Negative Negative 10/27/2022 1:14 PM CDT [facility] Nitrite UA Negative Negative 10/27/2022 1:14 PM CDT [facility] Leukocyte Esterase Negative Negative 10/27/2022 1:14 PM CDT [facility] Urobilinogen UA Negative Negative mg/dL 10/27/2022 1:14 PM CDT [facility] Comment UA Microscopic not indicated. 10/27/2022 1:14 PM CDT [facility] Urine URINE SPECIMEN OBTAINED BY CLEAN CATCH PROCEDURE / Unknown Collection / Unknown 10/27/2022 12:08 PM CDT 10/27/2022 12:17 PM CDT Narrative [facility] - 10/27/2022 1:14 PM CDT Emir Vail MD LAB - URINALYSIS ORD ERABLES [facility] [address] [place] [address], [facility] [phone] * MYCOPLASMA PNEUMONIAE AB IGM (10/27/2022 11:58 AM CDT) Mycoplasma Antibody IgM 0.09 <=0.76 U/L 10/29/2022 11:24 PM CDT [facility] ([facility]) Comment: INTERPRETIVE INFORMATION: ??Mycoplasma pneumoniae Ab, [...] more ?than 12 months post-infection. Performed By: [facility] [address] [place] [address] [employer] Supervisor: Boo Bond MD, PhD CLIA Number: [id number] Blood BLOOD SPECIMEN / Unknown Venipuncture / Unknown 10/27/2022 11:58 AM CDT 10/27/2022 12:17 PM CDT Emir Vail MD LAB - SEROLOGY ORDER NISSA [facility] [employer] [facility]) [address] [place] [address], [facility] * MYCOPLASMA PNEUMONIAE AB IGG (10/27/2022 11:58 AM CDT) Pathologist [facility] Mycoplasma Antibody IgG 0.05 <=0.09 U/L 10/29/2022 11:24 PM CDT [facility] [employer] ([facility]) Comment: INTERPRETIVE INFORMATION: ??Mycoplasma pneumoniae Ab, [...] other is below 0.20 U/L. Performed By: [facility] [address] [place] [address] [employer] Supervisor: Boo Bond MD, PhD CLIA Number: [id number] Blood BLOOD SPECIMEN / Unknown Venipuncture / Unknown 10/27/2022 11:58 AM CDT 10/27/2022 12:16 PM CDT Emir Vail MD LAB - SEROLOGY ORDER NISSA [facility]) [address] [place] [address], [facility] * CHLAMYDIA ANTIBODY IGG/IGM PANEL (10/27/2022 11:58 AM CDT) C Pneumoniae Antibody IgG Titer <1:64 <1:64 10/29/2022 8:32 PM CDT [facility] ([facility]) Chlamydia Pneumoniae Antibody IgM Titer <1:20 <1:20 10/29/2022 8:32 PM CDT [facility]) Chlamydia trachomatis Antibody IgM Titer <1:20 <1:20 10/29/2022 8:32 PM CDT [facility]) Chlamydia psittacI Antibody IgM Titer <1:20 <1:20 10/29/2022 8:32 PM CDT [facility]) Chlamydia trachomatis Antibody IgG Titer <1:64 <1:64 10/29/2022 8:32 PM CDT [facility] ([facility]) Chlamydia psittacI Antibody IgG Titer <1:64 <1:64 10/29/2022 8:32 PM CDT [facility] ([facility]) Comment: INTERPRETIVE INFORMATION: C. psittaci IgG Titer [...] developed and its performance characteristics determined by [facility]. It has not been cleared or approved by the US Food and Drug Administration. This test was performed in a CLIA certified laboratory and is intended for clinical purposes. Performed By: [facility] [address] [place] [address] [employer] Supervisor: Boo Bond MD, PhD CLIA Number: [id number] Blood BLOOD SPECIMEN / Unknown Venipuncture / Unknown 10/27/2022 11:58 AM CDT 10/27/2022 12:17 PM CDT Emir Vail MD LAB - CHEMISTRY B[place] BLACKMAN [facility] [employer] ([facility]) [address] [place] [address], [facility] * Q FEVER IGG/IGM AB PANEL RFLX TITER (10/27/2022 11:58 AM CDT) [facility] Coxiella burnetii Antibody IgG Phase 1 Screen Negative Negative 10/31/2022 12:29 AM CDT [facility] [employer] ([facility]) Comment: INTERPRETIVE INFORMATION: C. Burnetii Abs, [...] 2 Screen Negative Negative 10/31/2022 12:29 AM [facility] ([facility]) Comment: INTERPRETIVE INFORMATION: C. Burnetii Abs, [...] 1 Screen Negative Negative 10/31/2022 12:29 AM [facility] ([facility]) Comment: Coxiella burnetii (Q-Fever) Antibody IgM, [...] 2 Screen Negative Negative 10/31/2022 12:29 AM [facility] ([facility]) Comment: Coxiella burnetii (Q-Fever) Antibody IgM, [...] acute infection or during convalescence. Performed By: [facility] [address] [place] [address] [employer] Supervisor: Boo Bond MD, PhD CLIA Number: [id number] Blood BLOOD SPECIMEN / Unknown Venipuncture / Unknown 10/27/2022 11:58 AM CDT 10/27/2022 12:16 PM CDT Emir Vail MD LAB - SEROLOGY ORDER NISSA [facility]) [address] [place] [address] * BARTONELLA SPECIES PCR (10/27/2022 11:58 AM CDT) [facility] Bartonella Source Plasma 023 3:38 PM CDT [facility] ([facility]) Bartonella Species by PCR Not Detected 2022 3:38 PM CDT [facility]) Comment: NOT DETECTED - A negative result does not rule out the presence of PCR inhibitors in the patient specimen or assay specific nucleic acid in concentrations below the level of detection by the assay. INTERPRETIVE INFORMATION: Bartonella Species Detection by PCR This test was developed and its performance characteristics determined by [facility]. It has not been cleared or approved by the [place] Food and Drug Administration. This test was performed in a CLIA certified laboratory and is intended for clinical purposes. Performed By: [facility] [address] [place] [address] [employer] Supervisor: Boo Bond MD, PhD CLIA Number: [id number] Blood BLOOD SPECIMEN / Unknown Venipuncture / Unknown 10/27/2022 11:58 AM CDT 10/27/2022 12:16 PM CDT Emir Vail MD LAB - MICROBIOLOGY O RDERABLES [facility] [employer] ([facility]) [address] [place] [address], [facility] * BARTONELLA HENSELAE ANTIBODY IGG (10/27/2022 11:58 AM CDT) Bartonella henselae Antibody IgG <1:64 10/29/2022 8:33 PM CDT [facility] ([facility]) Comment: INTERPRETIVE INFORMATION: Bartonella henselae Ab, [...] developed and its performance characteristics determined by [facility]. It has not been cleared or approved by the US Food and Drug Administration. This test was performed in a CLIA certified laboratory and is intended for clinical purposes. Performed By: [address] [address] [employer] Supervisor: Boo Bond MD, PhD CLIA Number: [id number] Blood BLOOD SPECIMEN / Unknown Venipuncture / Unknown 10/27/2022 11:58 AM CDT 10/27/2022 12:16 PM CDT Emir Vail MD LAB - SEROLOGY ORDER NISSA [facility] ([facility]) [address] [place] [address], [facility] * BARTONELLA HENSELAE ANTIBODY IGM (10/27/2022 11:58 AM CDT) Pathologist [facility] Bartonella henselae Antibody IgM < 1:16 10/29/2022 8:33 PM CDT [facility] ([facility]) Comment: INTERPRETIVE INFORMATION: Bartonella henselae Antibody, [...] developed and its performance characteristics determined by [facility]. It has not been cleared or approved by the US Food and Drug Administration. This test was performed in a CLIA certified laboratory and is intended for clinical purposes. Performed By: [facility] [address] [place] [address] [employer] Supervisor: Boo Bond MD, PhD CLIA Number: [id number] Blood BLOOD SPECIMEN / Unknown Venipuncture / Unknown 10/27/2022 11:58 AM CDT 10/27/2022 12:16 PM CDT Emir Vail MD LAB - SEROLOGY ORDER NISSA Performing Organization Address [facility] Co de Phone Number [facility] ([facility]) [address] [place] [address] * CULTURE BLOOD AFB (10/27/2022 11:58 AM CDT) Culture No acid-fast bacillus isolated 12/04/2022 6:56 AM CDT [facility] Blood PERIPHERAL BLOOD / Unknown Venipuncture / Unknown 10/27/2022 11:58 AM CDT 10/27/2022 12:13 PM CDT Emir Vail MD LAB - MICROBIOLOGY O RDERABLES Performing Organization Address [facility] Co de Phone Number [facility] [address] [place] [phone] * CULTURE BLOOD FUNGUS (10/27/2022 11:58 AM CDT) Culture No fungus isolated ROSELIA 12/04/2022 6:38 AM CDT [facility] Blood PERIPHERAL BLOOD / Unknown Venipuncture / Unknown 10/27/2022 11:58 AM CDT 10/27/2022 12:13 PM CDT Emir Vail MD LAB - MICROBIOLOGY O RDERABLES Performing Organization Address City/[facility]/ZIP Co de Phone Number [facility] [address] [place] [address], [facility] [phone] * (ABNORMAL) PTT [facility] (10/27/2022 11:58 AM CDT) APTT 44.7(H) 23.0 - 38.4 Seconds 10/27/2022 1:19 PM CDT [facility] Comment:Suggested therapeuti c range for full dose I.V. unfractionated heparin therapy for venous thromboembolism is 71 to 109 seconds. Blood BLOOD SPECIMEN / Unknown Venipuncture / Unknown 10/27/2022 11:58 AM CDT 10/27/2022 12:39 PM CDT Emir Vail MD LAB - COAGULATION OR DERABLES [facility] [address] [place] [address], [place] [phone] * (ABNORMAL) GLUCOSE - POINT OF CARE (10/27/2022 11:13 AM CDT) Glucose WB/POC 140(H) 70 - 115 mg/dL 10/27/2022 11:16 AM CDT [facility] Specimen Type Cap Fingerstick 2022 11:16 AM CDT [facility] Blood BLOOD SPECIMEN / Unknown 10/27/2022 11:13 AM CDT 10/27/2022 11:16 AM CDT Emir Vail MD LAB - POINT OF CARE ORDERABLES [facility] [address] [place] [address], [place] [phone] * XR CHEST 1VW PORTABLE (10/27/2022 10:19 AM CDT) Anatomical Region Laterality Modality Chest Radiographic Irene ging 10/27/2022 1:44 PM CDT Narrative 10/27/2022 2:58 PM CDT PROCEDURE: ??XR CHEST 1VW PORTABLE, DATE/TIME OF EXAM: ??10/27/2022 10:19 AM, LOCATION ??[facility] INDICATION: D72.829: Leukocytosis, unspecified type ADDITIONAL CLINICAL INFORMATION: Ordering Provider Reason For Exam: ??any concern for pneumonia COMPARISON: Chest radiograph dated 10/25/2022. FINDINGS/IMPRESSION: Enteric tube courses below the diaphragm and out of the [id number]. RUQ surgical clips are present. No focal consolidation. No pleural effusion or pneumothorax. The cardiomediastinal silhouette is normal. Report dictated by Agnes Olmos DO (residential installer). Pepe Ornelas MD have personally reviewed and interpreted this examination/study. > Interpreting Provider: Pepe Gonzalez MD on 10/27/2022 2:58 PM Procedure Note Pepe Gonzalez MD - 10/27/2022 PROCEDURE: XR CHEST 1VW PORTABLE, DATE/TIME OF EXAM: 10/27/2022 10:19AM, LOCATION [facility] INDICATION: D72.829: Leukocytosis, unspecified type ADDITIONAL CLINICAL INFORMATION: Ordering Provider Reason For Exam: any concern for pneumonia COMPARISON: Chest radiograph dated 10/25/2022. FINDINGS/IMPRESSION: Enteric tube courses below the diaphragm and out of the [id number] surgical clips are present. No focal consolidation. No pleural effusion or pneumothorax. The cardiomediastinal silhouette is normal. Report dictated by Agnes Olmos DO (residential installer). Pepe Ornelas MD have personally reviewed and interpreted this examination/study. > Interpreting Provider: Pepe Gonzalez MD on 10/27/2022 2:58 PM Emir Vail MD DIAGNOSTIC IMAGING O RDERABLES * (ABNORMAL) GLUCOSE - POINT OF CARE (10/27/2022 6:33 AM CDT) Glucose WB/POC 128(H) 70 - 115 mg/dL 10/27/2022 6:39 AM CDT [facility] Specimen Type Cap Fingerstick 2022 6:39 AM CDT [facility] Blood BLOOD SPECIMEN / Unknown 10/27/2022 6:33 AM CDT 10/27/2022 6:39 AM CDT Emir Vail MD LAB - POINT OF CARE ORDERABLES Performing Organization Address [facility] Co de Phone Number [address] [address], [facility] [phone] * (ABNORMAL) PTT [facility] (10/27/2022 6:08 AM CDT) APTT 58.6(H) 23.0 - 38.4 Seconds 10/27/2022 6:37 AM CDT [facility] Comment:Suggested therapeuti c range for full dose I.V. unfractionated heparin therapy for venous thromboembolism is 71 to 109 seconds. Blood BLOOD SPECIMEN / Unknown Venipuncture / Unknown 10/27/2022 6:08 AM CDT 10/27/2022 6:14 AM CDT Emir Vail MD LAB - COAGULATION OR DERABLES Performing Organization Address [facility] Co de Phone Number [address] [address], [facility] [phone] * PT-INR [facility] (10/27/2022 6:08 AM CDT) PT 13.7 12.1 - 14.8 Seconds 10/27/2022 6:36 AM CDT [facility] INR 1.1 See Comment 10/27/2022 6:36 AM CDT [facility] Comment:The suggested therap eutic range for standard coumadin (warfarin) therapy is an INR of 2.0-3.0. For high-risk patients (Mechanical Mitral Valve Prosthesis, etc.), the suggested prophylactic therapeutic range is an INR of 2.5-3.5. Blood BLOOD SPECIMEN / Unknown Venipuncture / Unknown 10/27/2022 6:08 AM CDT 10/27/2022 6:14 AM CDT Emir Vail MD LAB - COAGULATION OR DERABLES Performing Organization Address 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 3 /uL 10/27/2022 4:31 AM [facility] Total Cell Count 100 10/28/19 4:31 AM [facility] Neutrophils Absolute Manual 12.09(H) 1.60 - 7.00 10? 3 /uL 10/27/2022 4:31 AM [facility] Comment:(BANDS+SEGS) x WBC = NEUT # (ANC) Lymphocyte Absolute Manual 5.07(H) 1.10 - 3.90 10? 3 /uL 10/27/2022 4:31 AM [facility] Monocytes Absolute Manual 0.78 0.26 - 1.07 10? 3 /uL 10/27/2022 4:31 AM [facility] Eosinophils Absolute Manual 1.17(H) 0.00 - 0.47 10? 3 /uL 10/27/2022 4:31 AM [facility] Neutrophil % Manual 62 35 - 70 % 10/27/2022 4:31 AM [facility] Lymphocyte % Manual 26 20 - 43 % 10/27/2022 4:31 AM [facility] Monocytes % Manual 4(L) 5 - 13 % 10/27/2022 4:31 AM [facility] Eosinophils % Manual 6 0 - 6 % 10/27/2022 4:31 AM [facility] Metamyelocyte % Manual 1(H) 0 % 10/27/2022 4:31 AM [facility] Myelocytes % Manual 1(H) 0 % 10/27/2022 4:31 AM [facility] Platelet Estimate Increased (A) Adequate 10/27/2022 4:31 AM [facility] Polychromasia Occasiona l(A) None 10/27/2022 4:31 AM [facility] Ovalocytes Occasiona l(A) None 10/27/2022 4:31 AM [facility] Eduardo Cells Occasiona l(A) None 10/27/2022 4:31 AM [facility] Tear Drop Cells Occasiona l(A) None 10/27/2022 4:31 AM [facility] Smudge Cells Rare(A) None 10/27/2022 4:31 AM [facility] Large Platelet Count Occasiona l(A) None 10/27/2022 4:31 AM CDT [facility] Blood BLOOD SPECIMEN / Unknown Venipuncture / Unknown 10/27/2022 12:54 AM CDT 10/27/2022 1:02 AM CDT Emir Vail MD LAB - HEMATOLOGY ORD ERABLES Performing Organization Address City/[facility]/ZIP Co de Phone Number [address] [address], [facility] [phone] * (ABNORMAL) PTT [facility] (10/27/2022 12:54 AM CDT) APTT 59.5(H) 23.0 - 38.4 Seconds 10/27/2022 1:25 AM [facility] Comment:Suggested therapeuti c range for full dose I.V. unfractionated heparin therapy for venous thromboembolism is 71 to 109 seconds. Blood BLOOD SPECIMEN / Unknown Venipuncture / Unknown 10/27/2022 12:54 AM CDT 10/27/2022 1:02 AM CDT Emir Vail MD LAB - COAGULATION OR DERABLES Performing Organization Address [facility]/ZIP Co de Phone Number [address] [address], [facility] [phone] * (ABNORMAL) BASIC METABOLIC PANEL (CALCIUM TOTAL) (10/27/2022 12:54 AM CDT) BUN 11 7 - 26 mg/dL 10/27/2022 1:28 AM [facility] Creatinine 0.53(L) 0.56 - 0.96 mg/dL 10/27/2022 1:28 AM [facility] Sodium 138 136 - 145 mmol/L 10/27/2022 1:28 AM [facility] Potassium 3.5 3.5 - 4.5 mmol/L 10/27/2022 1:28 AM [facility] Chloride 107 98 - 107 mmol/L 10/27/2022 1:28 AM [facility] CO2 24 22 - 29 mmol/L 10/27/2022 1:28 AM [facility] Glucose 137(H) 70 - 115 mg/dL 10/27/2022 1:28 AM [facility] Calcium 8.4 8.4 - 10.2 mg/dL 10/27/2022 1:28 AM [facility] Anion Gap 11 8 - 18 10/27/2022 1:28 AM [facility] BUN/Creatinine Ratio 21 7 - 23 10/27/2022 1:28 AM [facility] Osmolality Calculated 288 270 - 300 mOsm/kg 10/27/2022 1:28 AM [facility] eGFR by CKD-EPI >90 >=90 mL/min/1.7 3 m2 10/27/2022 1:28 AM [facility] Blood BLOOD SPECIMEN / Unknown Venipuncture / Unknown 10/27/2022 12:54 AM CDT 10/27/2022 1:02 AM T Emir Vail MD LAB - CHEMISTRY [facility] BL[facility] Organization Address City/State/ZIP Co de Phone Number [facility] [address] [place] [address], [facility] [phone] * (ABNORMAL) CBC W AUTO DIFFERENTIAL (10/27/2022 12:54 AM T) WBC 19.5(H) 3.5 - 10.5 10? 3 /uL 10/27/2022 1:23 AM [facility] RBC 2.60(L) 3.80 - 5.20 10? 6 /uL 10/27/2022 1:23 AM [facility] Hemoglobin 8.0(L) 12.0 - 15.6 g/dL 10/27/2022 1:23 AM [facility] Hematocrit 24.6(L) 35.0 - 45.0 % 10/27/2022 1:23 AM [facility] MCV 94.6 80.7 - 98.3 fL 10/27/2022 1:23 AM [facility] MCH 30.8 26.7 - 34.0 pg 10/27/2022 1:23 AM [facility] MCHC 32.5 30.8 - 35.9 g/dL 10/27/2022 1:23 AM [facility] RDW-SD 45.8 36.0 - 50.0 fL 10/27/2022 1:23 AM [facility] RDW-CV 13.5 11.2 - 14.8 % 10/27/2022 1:23 AM [facility] Platelet Count 519(H) 150 - 400 10? 3 /uL 10/27/2022 1:23 AM [facility] MPV 10.1 9.4 - 12.9 fL 10/27/2022 1:23 AM [facility] nRBC Absolute 0.08(H) 0 10? 3 /uL 10/27/2022 1:23 AM [facility] nRBC Auto 0.4(H) 0 /100 WBC 10/27/2022 1:23 AM [facility] Blood BLOOD SPECIMEN / Unknown Venipuncture / Unknown 10/27/2022 12:54 AM CDT 10/27/2022 1:02 AM CDT Emir Vail MD LAB - HEMATOLOGY ORD ERABLES [address] [address], [facility] [phone] * PHOSPHORUS BLOOD (10/27/2022 12:54 AM CDT) Phosphorus 3.5 2.9 - 5.1 mg/dL 10/27/2022 1:28 AM T [facility] Blood BLOOD SPECIMEN / Unknown Venipuncture / Unknown 10/27/2022 12:54 AM CDT 10/27/2022 1:02 AM CDT Emir Vail MD LAB - CHEMISTRY ORDE HIRAL [address] [address], [place] [phone] * MAGNESIUM BLOOD (10/27/2022 12:54 AM CDT) Magnesium 2.0 1.6 - 2.6 mg/dL 10/27/2022 1:28 AM CDT [facility] Blood BLOOD SPECIMEN / Unknown Venipuncture / Unknown 10/27/2022 12:54 AM CDT 10/27/2022 1:02 AM CDT Emir Vail MD LAB - CHEMISTRY [place] BLACKMAN Performing Organization Address City/[facility]/ZIP Co de Phone Number [address] [address], [place] [phone] * (ABNORMAL) PTT [facility] (10/26/2022 9:12 PM CDT) [facility] APTT 65.0(H) 23.0 - 38.4 Seconds 10/26/2022 9:46 PM CDT [facility] Comment:Suggested therapeuti c range for full dose I.V. unfractionated heparin therapy for venous thromboembolism is 71 to 109 seconds. Blood BLOOD SPECIMEN / Unknown Venipuncture / Unknown 10/26/2022 9:12 PM CDT 10/26/2022 9:18 PM CDT Emir Vail MD LAB - COAGULATION OR DERABLES Performing Organization Address [facility] Co de Phone Number [address] [address], [place] [phone] * (ABNORMAL) GLUCOSE - POINT OF CARE (10/26/2022 6:33 PM CDT) [facility] Glucose WB/POC 122(H) 70 - 115 mg/dL 10/26/2022 6:34 PM CDT [facility] Specimen Type Cap Fingerstick 2022 6:34 PM CDT [facility] Blood BLOOD SPECIMEN / Unknown 10/26/2022 6:33 PM CDT 10/26/2022 6:34 PM CDT Emir Vail MD LAB - POINT OF CARE ORDERABLES [facility] [address] [place] [address], [place] [phone] * (ABNORMAL) PTT [facility] (10/26/2022 3:59 PM CDT) APTT 52.9(H) 23.0 - 38.4 Seconds 10/26/2022 4:35 PM CDT [facility] Comment:Suggested therapeuti c range for full dose I.V. unfractionated heparin therapy for venous thromboembolism is 71 to 109 seconds. Blood BLOOD SPECIMEN / Unknown Venipuncture / Unknown 10/26/2022 3:59 PM CDT 10/26/2022 4:12 PM CDT Emir Vail MD LAB - COAGULATION OR DERABLES Performing Organization Address City/[facility]/ZIP Co de Phone Number [address] [address], [place] [phone] * VAS ARTERIAL MULTILEVEL LE (10/26/2022 2:59 PM CDT) Anatomical Region Laterality Modality Intravascular Ul trasound 10/26/2022 1:32 AM CDT Narrative Procedure Note Daniella Jose MD - 10/27/2022 Emir Vail MD VASCULAR LAB ORDERAB LES * (ABNORMAL) GLUCOSE - POINT OF CARE (10/26/2022 12:15 PM CDT) Glucose WB/POC 122(H) 70 - 115 mg/dL 10/26/2022 12:16 PM CDT [facility] Specimen Type Cap Fingerstick 2022 12:16 PM CDT [facility] Blood BLOOD SPECIMEN / Unknown 10/26/2022 12:15 PM CDT 10/26/2022 12:16 PM CDT Emir Vail MD LAB - POINT OF CARE ORDERABLES [address] [address], [facility] [phone] * (ABNORMAL) PTT [facility] (10/26/2022 11:24 AM CDT) [facility] APTT 51.1(H) 23.0 - 38.4 Seconds 10/26/2022 11:55 AM CDT [facility] Comment:Suggested therapeuti c range for full dose I.V. unfractionated heparin therapy for venous thromboembolism is 71 to 109 seconds. Blood BLOOD SPECIMEN / Unknown Venipuncture / Unknown 10/26/2022 11:24 AM CDT 10/26/2022 11:31 AM CDT Emir Vail MD LAB - COAGULATION OR DERABLES [address] [address], [facility] [phone] * VANCOMYCIN LEVEL TROUGH (10/26/2022 8:38 AM CDT) [facility] Vancomycin Trough 14.0 10.0 - 20.0 ug/mL 10/26/2022 9:59 AM CDT [facility] Blood BLOOD SPECIMEN / Unknown Venipuncture / Unknown 10/26/2022 8:38 AM CDT 10/26/2022 8:45 AM CDT Narrative [facility] - 10/26/2022 9:59 AM CDT See institution protocol. Emir Vail MD LAB - CHEMISTRY ORDE RABLES [address] [address], [facility] [phone] * LAB MISC TEST (10/26/2022 7:37 AM CDT) Pathologist [facility] Test Name mycoplasma PCR , blood 12/09/2022 1:25 PM CDT [facility] Test Result See Scanned Report 12/09/2022 1:25 PM CDT [facility] Comment Ref Lab [facility] 12/09/2022 1:25 PM CDT [facility] Blood BLOOD SPECIMEN / Unknown Venipuncture / Unknown 10/26/2022 7:37 AM CDT 10/26/2022 7:39 AM CDT Emir Vail MD LAB SEND OUT Performing Organization Address City/[facility]/ZIP Co de Phone Number [facility] [address] [place] [phone] * (ABNORMAL) GLUCOSE - POINT OF CARE (10/26/2022 7:12 AM CDT) Glucose WB/POC 144(H) 70 - 115 mg/dL 10/26/2022 7:13 AM CDT [facility] Specimen Type Cap Fingerstick 2022 7:13 AM CDT [facility] Blood BLOOD SPECIMEN / Unknown 10/26/2022 7:12 AM CDT 10/26/2022 7:13 AM CDT Emir Vail MD LAB - POINT OF CARE ORDERABLES Performing Organization Address [facility]/ZIP Co de Phone Number [facility] [address] [place] [phone], [place] [phone] * (ABNORMAL) PTT [facility] (10/26/2022 6:47 AM CDT) Pathologist [facility] APTT 44.3(H) 23.0 - 38.4 Seconds 10/26/2022 7:17 AM CDT [facility] Comment:Suggested therapeuti c range for full dose I.V. unfractionated heparin therapy for venous thromboembolism is 71 to 109 seconds. Blood BLOOD SPECIMEN / Unknown Venipuncture / Unknown 10/26/2022 6:47 AM CDT 10/26/2022 6:52 AM CDT Emir Vail MD LAB - COAGULATION OR DERABLES Performing Organization Address City/[facility]/ZIP Co de Phone Number [address] [address], [place] [phone] * CT HEAD WO CONTRAST (10/26/2022 4:55 [...] is dictated by Miranda Bowen MD (residential installer) I, Oriana Suarez MD have personally reviewed and interpreted this examination/study. 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 > Interpreting Provider: Oriana Suarez MD on 10/26/2022 8:19 AM Emir Vail MD CT ORDERABLES * PT-INR [facility] (10/26/2022 4:26 AM CDT) PT 13.6 12.1 - 14.8 Seconds 10/26/2022 4:59 AM CDT [facility] INR 1.0 See Comment 10/26/2022 4:59 AM CDT [facility] Comment:The suggested therap eutic range for standard coumadin (warfarin) therapy is an INR of 2.0-3.0. For high-risk patients (Mechanical Mitral Valve Prosthesis, etc.), the suggested prophylactic therapeutic range is an INR of 2.5-3.5. Blood BLOOD SPECIMEN / Unknown Venipuncture / Unknown 10/26/2022 4:26 AM CDT 10/26/2022 4:32 AM CDT Emir Vail MD LAB - COAGULATION OR DERABLES Performing Organization Address [facility]/ZIP Co de Phone Number [address] [address], [facility] [phone] * (ABNORMAL) PTT [facility] (10/26/2022 1:55 AM CDT) APTT 20.5(L) 23.0 - 38.4 Seconds 10/26/2022 2:26 AM CDT [facility] Comment:Suggested therapeuti c range for full dose I.V. unfractionated heparin therapy for venous thromboembolism is 71 to 109 seconds. Blood BLOOD SPECIMEN / Unknown Venipuncture / Unknown 10/26/2022 1:55 AM CDT 10/26/2022 2:00 AM CDT Emir Vail MD LAB - COAGULATION OR DERABLES Performing Organization Address City/[facility]/ZIP Co de Phone Number [address] [address], [place] [phone] * (ABNORMAL) BASIC METABOLIC PANEL (CALCIUM TOTAL) (10/26/2022 12:02 AM CDT) BUN 13 7 - 26 mg/dL 10/26/2022 12:30 AM CDT [facility] Creatinine 0.54(L) 0.56 - 0.96 mg/dL 10/26/2022 12:30 AM CDT [facility] Sodium 139 136 - 145 mmol/L 10/26/2022 12:30 AM [facility] Potassium 3.3(L) 3.5 - 4.5 mmol/L 10/26/2022 12:30 AM [facility] Chloride 105 98 - 107 mmol/L 10/26/2022 12:30 AM [facility] CO2 24 22 - 29 mmol/L 10/26/2022 12:30 AM [facility] Glucose 113 70 - 115 mg/dL 10/26/2022 12:30 AM [facility] Calcium 8.4 8.4 - 10.2 mg/dL 10/26/2022 12:30 AM [facility] Anion Gap 13 8 - 18 10/26/2022 12:30 AM [facility] BUN/Creatinine Ratio 24(H) 7 - 23 10/26/2022 12:30 AM [facility] Osmolality Calculated 289 270 - 300 mOsm/kg 10/26/2022 12:30 AM [facility] eGFR by CKD-EPI >90 >=90 mL/min/1.7 3 m2 10/26/2022 12:30 AM [facility] Blood BLOOD SPECIMEN / Unknown Venipuncture / Unknown 10/26/2022 12:02 AM CDT 10/26/2022 12:06 AM T Emir Vail MD LAB - CHEMISTRY [place] BL[facility]MAN [facility] Organization Address City/State/ZIP Co de Phone Number [address] [address], [facility] [phone] * (ABNORMAL) CBC W AUTO DIFFERENTIAL (10/26/2022 12:02 AM CDT) WBC 16.1(H) 3.5 - 10.5 10? 3 /uL 10/26/2022 12:12 AM [facility] RBC 2.64(L) 3.80 - 5.20 10? 6 /uL 10/26/2022 12:12 AM [facility] Hemoglobin 8.1(L) 12.0 - 15.6 g/dL 10/26/2022 12:12 AM [facility] Hematocrit 25.1(L) 35.0 - 45.0 % 10/26/2022 12:12 AM [facility] MCV 95.1 80.7 - 98.3 fL 10/26/2022 12:12 AM [facility] MCH 30.7 26.7 - 34.0 pg 10/26/2022 12:12 AM [facility] MCHC 32.3 30.8 - 35.9 g/dL 10/26/2022 12:12 AM [facility] RDW-SD 46.2 36.0 - 50.0 fL 10/26/2022 12:12 AM [facility] RDW-CV 13.5 11.2 - 14.8 % 10/26/2022 12:12 AM [facility] Platelet Count 446(H) 150 - 400 10? 3 /uL 10/26/2022 12:12 AM [facility] MPV 10.0 9.4 - 12.9 fL 10/26/2022 12:12 AM [facility] nRBC Absolute 0.04(H) 0 10? 3 /uL 10/26/2022 12:12 AM [facility] nRBC Auto 0.2(H) 0 /100 WBC 10/26/2022 12:12 AM [facility] Neutrophils % 63.5 35.0 - 70.0 % 10/26/2022 12:12 AM [facility] Lymphocytes % 22.7 20.0 - 43.0 % 10/26/2022 12:12 AM [facility] Monocytes % 8.3 5.0 - 13.0 % 10/26/2022 12:12 AM [facility] Eosinophils % 3.2 0.0 - 6.0 % 10/26/2022 12:12 AM [facility] Basophil % 0.4 0.0 - 2.0 % 10/26/2022 12:12 AM [facility] Neutrophils Absolute 10.24(H) 1.60 - 7.00 10? 3 /uL 10/26/2022 12:12 AM [facility] Lymphocyte Absolute 3.65 1.10 - 3.90 10? 3 /uL 10/26/2022 12:12 AM CDT [facility] Monocytes Absolute 1.34(H) 0.26 - 1.07 10? 3 /uL 10/26/2022 12:12 AM CDT [facility] Eosinophils Absolute 0.51(H) 0.00 - 0.47 10? 3 /uL 10/26/2022 12:12 AM CDT [facility] Basophils Absolute 0.06 0.00 - 0.08 10? 3 /uL 10/26/2022 12:12 AM CDT [facility] Immature Granulocytes % 1.9(H) 0.0 - 1.0 % 10/26/2022 12:12 AM CDT [facility] Immature Granulocytes Absolute 0.30 10/26/2022 12:12 AM CDT [facility] Blood BLOOD SPECIMEN / Unknown Venipuncture / Unknown 10/26/2022 12:02 AM CDT 10/26/2022 12:06 AM CDT Emir Vail MD LAB - HEMATOLOGY ORD ERABLES [address] [address], [facility] [phone] * PHOSPHORUS BLOOD (10/26/2022 12:02 AM CDT) Phosphorus 3.5 2.9 - 5.1 mg/dL 10/26/2022 12:30 AM CDT [facility] Blood BLOOD SPECIMEN / Unknown Venipuncture / Unknown 10/26/2022 12:02 AM CDT 10/26/2022 12:06 AM CDT Emir Vail MD LAB - CHEMISTRY ORDE HIRAL [address] [address], [place] [phone] * MAGNESIUM BLOOD (10/26/2022 12:02 AM CDT) Magnesium 1.9 1.6 - 2.6 mg/dL 10/26/2022 12:30 AM CDT [facility] Blood BLOOD SPECIMEN / Unknown Venipuncture / Unknown 10/26/2022 12:02 AM CDT 10/26/2022 12:06 AM CDT Emir Vail MD LAB - CHEMISTRY ORDE HIRAL Performing Organization Address City/[facility]/ZIP Co de Phone Number [facility] [address] [place] [address], [place] [phone] * GLUCOSE - POINT OF CARE (10/25/2022 11:14 PM CDT) Glucose WB/POC 114 70 - 115 mg/dL 10/25/2022 11:15 PM CDT [facility] Specimen Type Cap Fingerstick 2022 11:15 PM CDT [facility] Blood BLOOD SPECIMEN / Unknown 10/25/2022 11:14 PM CDT 10/25/2022 11:15 PM CDT Emir Vail MD LAB - POINT OF CARE ORDERABLES Performing Organization Address [facility]/ZIP Co de Phone Number [facility] [address] [place] [address], [place] [phone] * PTT [facility] (10/25/2022 9:02 PM CDT) APTT 33.3 23.0 - 38.4 Seconds 10/25/2022 9:32 PM CDT [facility] Comment:Suggested therapeuti c range for full dose I.V. unfractionated heparin therapy for venous thromboembolism is 71 to 109 seconds. Blood BLOOD SPECIMEN / Unknown Venipuncture / Unknown 10/25/2022 9:02 PM CDT 10/25/2022 9:10 PM CDT Emir Vail MD LAB - COAGULATION OR DERABLES [facility] [address] [place] [id number], [place] [phone] * (ABNORMAL) GLUCOSE - POINT OF CARE (10/25/2022 6:54 PM CDT) Glucose WB/POC 122(H) 70 - 115 mg/dL 10/25/2022 6:56 PM CDT [facility] Specimen Type Cap Fingerstick 2022 6:56 PM CDT [facility] Blood BLOOD SPECIMEN / Unknown 10/25/2022 6:54 PM CDT 10/25/2022 6:55 PM CDT Emir Vail MD LAB - POINT OF CARE ORDERABLES Performing Organization Address [facility] [place]/[facility]/ZIP Co de Phone Number [address] [address], [facility] [phone] * PTT [facility] (10/25/2022 4:41 PM CDT) Pathologist [facility] [place] APTT 24.8 23.0 - 38.4 Seconds 10/25/2022 5:19 PM CDT [facility] Comment:Suggested therapeuti c range for full dose I.V. unfractionated heparin therapy for venous thromboembolism is 71 to 109 seconds. Blood BLOOD SPECIMEN / Unknown Venipuncture / Unknown 10/25/2022 4:41 PM CDT 10/25/2022 4:55 PM CDT Emir Vail MD LAB - COAGULATION OR DERABLES Performing Organization Address [facility] [place]/[facility]/ZIP Co de Phone Number [address] [address], [facility] [phone] * PT-INR [facility] (10/25/2022 4:41 PM CDT) PT 13.4 12.1 - 14.8 Seconds 10/25/2022 5:19 PM CDT [facility] INR 1.0 See Comment 10/25/2022 5:19 PM CDT [facility] Comment:The suggested therap eutic range for standard coumadin (warfarin) therapy is an INR of 2.0-3.0. For high-risk patients (Mechanical Mitral Valve Prosthesis, etc.), the suggested prophylactic therapeutic range is an INR of 2.5-3.5. Blood BLOOD SPECIMEN / Unknown Venipuncture / Unknown 10/25/2022 4:41 PM CDT 10/25/2022 4:55 PM CDT Emir Vail MD LAB - COAGULATION OR DERABLES [facility] [address] [place] [address], [facility] [phone] * CT CHEST ABDOMEN PELVIS W CONT [...] > Dictated by Clarisa Cantrell MD (residential installer). I, Alexx Lopez have personally reviewed and interpreted this examination/study. > Interpreting Provider: Alexx Lopez on 10/25/2022 4:16 PM Narrative 10/25/2022 4:16 PM CDT PROCEDURE: ??CT CHEST ABDOMEN PELVIS W CONT, DATE/TIME OF EXAM: ??10/25/2022 12:56 PM, LOCATION ??[facility] INDICATION: I63.511: Right middle cerebral artery [...] CONT, DATE/TIME OF EXAM:10/25/2022 12:56 PM, LOCATION [facility] INDICATION: I63.511: Right middle cerebral artery [...] > Dictated by Clarisa Cantrell MD (residential installer). I, Alexx Lopez have personally reviewed and [...] is dictated by Miranda Bowen MD (residential installer) I, Joni Fabian MD have personally reviewed and interpreted this examination/study. 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 ([facility]) I33.0: Aortic valve vegetation ADDITIONAL CLINICAL INFORMATION: [...] DATE/TIME OF EXAM: 10/25/2022 12:56 PM, LOCATION [facility] INDICATION: I63.511: Right middle cerebral artery [...] is dictated by Miranda Bowen MD (residential installer) I, Joni Fabian MD have personally reviewed [...] DATE/TIME OF EXAM: ??10/25/2022 9:41 AM, LOCATION ??[facility] 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 Enteric tube courses below the diaphragm and out of the [id number]. There is severe left rotation of the patient in this study. There is no focal consolidation, pleural effusion, or pneumothorax. The left upper lobe pulmonary nodule noted on chest CT from same day is not visualized on this plain film. The cardiomediastinal silhouette is normal. The visible bony thorax is intact. Report dictated by Royer Stovall MD (residential installer). Alexx Ornelas have personally reviewed and interpreted this examination/study. 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 Enteric tube courses below the diaphragm and out of the [id number]-[id number]. There is severe left rotation of the patient in this study. There is no focal consolidation, pleural effusion, or pneumothorax. The left upper lobe pulmonary nodule noted on chest CT from same day is not visualized on this plain film. The cardiomediastinal silhouette isnormal. The visible bony thorax is intact. Report dictated by Royer Stovall MD (residential installer). Alexx Ornelas have personally reviewed and interpreted this examination/study. > Interpreting Provider: Alexx Lopez on 10/26/2022 2:01 PM Shahbaz Bowen MD DIAGNOSTIC IMAGING O RDERABLES * CULTURE BLOOD (10/25/2022 9:00 AM CDT) Culture No growth day 5 ROSELIA 10/30/2022 1:30 PM CDT [facility] MICRO[facility] Blood PERIPHERAL BLOOD / Unknown Venipuncture / Unknown 10/25/2022 9:00 AM CDT 10/25/2022 9:21 AM CDT Emir Vail MD LAB - MICROBIOLOGY O RDERABLES [facility] MICRO[facility] [address] [place] [address], [facility] [phone] * (ABNORMAL) GLUCOSE - POINT OF CARE (10/25/2022 7:46 AM CDT) [facility] Glucose WB/POC 123(H) 70 - 115 mg/dL 10/25/2022 7:47 AM CDT [facility] Specimen Type Cap Fingerstick 2022 7:47 AM CDT [facility] Blood BLOOD SPECIMEN / Unknown 10/25/2022 7:46 AM CDT 10/25/2022 7:47 AM CDT Emir Vail MD LAB - POINT OF CARE ORDERABLES Performing Organization Address [facility]/ZIP Co de Phone Number [address] [address], [place] [phone] * HEPATITIS C AB SCREEN RFLX NAAT QUANT (10/25/2022 1:39 AM CDT) [facility] Hepatitis C Antibody Non-react tiffany Non-reac tive 10/25/2022 2:56 AM CDT [facility] Comment:Hepatitis C Antibody screen indicates no serologic [...] - CHEMISTRY ORDE HIRAL Performing Organization Address City/[facility]/ZIP Co de Phone Number [address] [address], [place] [phone] * HIV-1 HIV-2 ANTIBODY + HIV P24 AG PANEL (10/25/2022 1:39 AM CDT) HIV Antigen/Antibod y 1 & 2 Non-reacti ve Non-react tiffany 10/25/2022 2:56 AM [facility] Comment:No Laboratory eviden ce of HIV infection. Blood BLOOD SPECIMEN / Unknown Venipuncture / Unknown 10/25/2022 1:39 AM CDT 10/25/2022 1:56 AM CDT Emir Vail MD LAB - CHEMISTRY ANKURE HIRAL [facility] [address] [place] [address], [facility] [phone] * (ABNORMAL) BASIC METABOLIC PANEL (CALCIUM TOTAL) (10/25/2022 12:07 AM CDT) Pathologist [facility] BUN 16 7 - 26 mg/dL 10/25/2022 12:48 AM [facility] Creatinine 0.48(L) 0.56 - 0.96 mg/dL 10/25/2022 12:48 AM [facility] Sodium 140 136 - 145 mmol/L 10/25/2022 12:48 AM [facility] Potassium 4.0 3.5 - 4.5 mmol/L 10/25/2022 12:48 AM [facility] Chloride 106 98 - 107 mmol/L 10/25/2022 12:48 AM [facility] CO2 25 22 - 29 mmol/L 10/25/2022 12:48 AM [facility] Glucose 116(H) 70 - 115 mg/dL 10/25/2022 12:48 AM [facility] Calcium 9.0 8.4 - 10.2 mg/dL 10/25/2022 12:48 AM [facility] Anion Gap 13 8 - 18 10/25/2022 12:48 AM [facility] BUN/Creatinine Ratio 33(H) 7 - 23 10/25/2022 12:48 AM [facility] Osmolality Calculated 292 270 - 300 mOsm/kg 10/25/2022 12:48 AM [facility] eGFR by CKD-EPI >90 >=90 mL/min/1.7 3 m2 10/25/2022 12:48 AM [facility] Blood BLOOD SPECIMEN / Unknown Venipuncture / Unknown 10/25/2022 12:07 AM CDT 10/25/2022 12:12 AM CDT Emir Vail MD LAB - CHEMISTRY BIBIANA BLACKMAN [facility] Organization Address City/State/ZIP Co de Phone Number [facility] [address] [place] [address], [facility] [phone] * (ABNORMAL) CBC W AUTO DIFFERENTIAL (10/25/2022 12:07 AM CDT) WBC 16.6(H) 3.5 - 10.5 10? 3 /uL 10/25/2022 12:27 AM [facility] RBC 2.65(L) 3.80 - 5.20 10? 6 /uL 10/25/2022 12:27 AM [facility] Hemoglobin 8.2(L) 12.0 - 15.6 g/dL 10/25/2022 12:27 AM [facility] Hematocrit 25.1(L) 35.0 - 45.0 % 10/25/2022 12:27 AM [facility] MCV 94.7 80.7 - 98.3 fL 10/25/2022 12:27 AM [facility] MCH 30.9 26.7 - 34.0 pg 10/25/2022 12:27 AM [facility] MCHC 32.7 30.8 - 35.9 g/dL 10/25/2022 12:27 AM [facility] RDW-SD 45.8 36.0 - 50.0 fL 10/25/2022 12:27 AM [facility] RDW-CV 13.4 11.2 - 14.8 % 10/25/2022 12:27 AM [facility] Platelet Count 402(H) 150 - 400 10? 3 /uL 10/25/2022 12:27 AM [facility] MPV 10.2 9.4 - 12.9 fL 10/25/2022 12:27 AM [facility] nRBC Absolute 0.03(H) 0 10? 3 /uL 10/25/2022 12:27 AM [facility] nRBC Auto 0.2(H) 0 /100 WBC 10/25/2022 12:27 AM [facility] Neutrophils % 72.0(H) 35.0 - 70.0 % 10/25/2022 12:27 AM [facility] Lymphocytes % 15.7(L) 20.0 - 43.0 % 10/25/2022 12:27 AM [facility] Monocytes % 8.7 5.0 - 13.0 % 10/25/2022 12:27 AM [facility] Eosinophils % 2.1 0.0 - 6.0 % 10/25/2022 12:27 AM [facility] Basophil % 0.4 0.0 - 2.0 % 10/25/2022 12:27 AM [facility] Neutrophils Absolute 11.95(H) 1.60 - 7.00 10? 3 /uL 10/25/2022 12:27 AM [facility] Lymphocyte Absolute 2.60 1.10 - 3.90 10? 3 /uL 10/25/2022 12:27 AM [facility] Monocytes Absolute 1.45(H) 0.26 - 1.07 10? 3 /uL 10/25/2022 12:27 AM [facility] Eosinophils Absolute 0.34 0.00 - 0.47 10? 3 /uL 10/25/2022 12:27 AM [facility] Basophils Absolute 0.06 0.00 - 0.08 10? 3 /uL 10/25/2022 12:27 AM [facility] Immature Granulocytes % 1.1(H) 0.0 - 1.0 % 10/25/2022 12:27 AM [facility] Immature Granulocytes Absolute 0.18 10/25/2022 12:27 AM [facility] Blood BLOOD SPECIMEN / Unknown Venipuncture / Unknown 10/25/2022 12:07 AM CDT 10/25/2022 12:12 AM T Emir Vail MD LAB - HEMATOLOGY ORD ERABLES [address] [address], [place] [phone] * PHOSPHORUS BLOOD (10/25/2022 12:07 AM CDT) Phosphorus 3.7 2.9 - 5.1 mg/dL 10/25/2022 12:48 AM CDT [facility] Blood BLOOD SPECIMEN / Unknown Venipuncture / Unknown 10/25/2022 12:07 AM CDT 10/25/2022 12:12 AM CDT Emir Vail MD LAB - CHEMISTRY ORDE HIRAL Performing Organization Address City/[facility]/ZIP Co de Phone Number [address] [address], [place] [phone] * MAGNESIUM BLOOD (10/25/2022 12:07 AM CDT) Magnesium 2.1 1.6 - 2.6 mg/dL 10/25/2022 12:48 AM CDT [facility] Blood BLOOD SPECIMEN / Unknown Venipuncture / Unknown 10/25/2022 12:07 AM CDT 10/25/2022 12:12 AM CDT Emir Vail MD LAB - CHEMISTRY BIB[place]NA BLACKMAN Performing Organization Address [facility]/ZIP Co de Phone Number [address] [address], [place] [phone] * GLUCOSE - POINT OF CARE (10/24/2022 8:16 PM CDT) Glucose WB/POC 111 70 - 115 mg/dL 10/24/2022 8:25 PM CDT [facility] Specimen Type Cap Fingerstick 2022 8:25 PM CDT [facility] Blood BLOOD SPECIMEN / Unknown 10/24/2022 8:16 PM CDT 10/24/2022 8:25 PM CDT Emir Vail MD LAB - POINT OF CARE ORDERABLES [address] [address], [place] [phone] * GLUCOSE - POINT OF CARE (10/24/2022 5:10 PM CDT) Glucose WB/POC 112 70 - 115 mg/dL 10/24/2022 5:11 PM CDT [facility] Specimen Type Cap Fingerstick 2022 5:11 PM CDT [facility] Blood BLOOD SPECIMEN / Unknown 10/24/2022 5:10 PM CDT 10/24/2022 5:11 PM CDT Emir Vail MD LAB - POINT OF CARE ORDERABLES Performing Organization Address City/[facility]/ZIP Co de Phone Number [address] [address], [place] [phone] * XR ABDOMEN KUB PORTABLE (10/24/2022 2:04 PM CDT) Anatomical Region Laterality Modality Abdomen Radiographic Irene ging 10/24/2022 2:13 PM CDT Narrative 10/24/2022 2:17 PM CDT PROCEDURE: ??XR ABDOMEN KUB PORTABLE, DATE/TIME OF EXAM: ??10/24/2022 2:04 PM, LOCATION ??[facility] INDICATION: R47.1: Dysarthria ADDITIONAL CLINICAL INFORMATION: Ordering Provider Reason For Exam: ??ngt placement COMPARISON: Portable KUB dated 10/23/2022 FINDINGS/IMPRESSION: The enteric tube courses below the diaphragm with tip superimposing the gastric pyloric region. Drafted by Agnes Olmos DO (residential installer). I, Vanessa Kumar MD have personally reviewed and interpreted this examination/study. > Interpreting Provider: Vanessa Kumar MD on 10/24/2022 2:17 PM Procedure Note Vanessa Kumar MD - 10/24/2022 PROCEDURE: XR ABDOMEN KUB PORTABLE, DATE/TIME OF EXAM: 10/24/2022 2:04PM, LOCATION [facility] INDICATION: R47.1: Dysarthria ADDITIONAL CLINICAL INFORMATION: Ordering Provider Reason For Exam: ngt placement COMPARISON: Portable KUB dated 10/23/2022 FINDINGS/IMPRESSION: The enteric tube courses below the diaphragm with tip superimposing the gastric pyloric region. Drafted by Agnes Olmos DO (residential installer). I, Vanessa Kumar MD have personally reviewed and interpreted this examination/study. > Interpreting Provider: Vanessa Kumar MD on 32:17 PM Emir Vail MD DIAGNOSTIC IMAGING O RDERABLES * CULTURE BLOOD (10/24/2022 1:13 PM CDT) Pathologist [facility] Culture No growth day 5 ROSELIA 10/29/2022 4:32 PM CDT [facility]CRO[facility] Blood PERIPHERAL BLOOD / Unknown Venipuncture / Unknown 10/24/2022 1:13 PM CDT 10/24/2022 1:28 PM CDT Emir Vail MD LAB - MICROBIOLOGY O RDDIMAS [facility]CRO[facility] [address] [place] [address], [facility] [phone] * (ABNORMAL) GLUCOSE - POINT OF CARE (10/24/2022 12:37 PM CDT) Pathologist [facility] Glucose WB/POC 130(H) 70 - 115 mg/dL 10/24/2022 5:34 PM CDT [facility] Specimen Type Cap Fingerstick 2022 5:34 PM CDT [facility] Blood BLOOD SPECIMEN / Unknown 10/24/2022 12:37 PM CDT 10/24/2022 5:34 PM CDT Emir Vail MD LAB - POINT OF CARE ORDERABLES [facility] [address] [place] [address] [phone] * MRI BRAIN WWO CONTRAST (10/24/2022 10:56 [...] right lateral ventricle, and approximately 3-4 mm sznhq-fh-ipqi midline shift, grossly similar to the prior. [...] Report dictated by Tim Major MD (residential installer). I, Jasper Sifuentes MD have personally reviewed and interpreted this examination/study. > Interpreting Provider: Jasper Sifuentes MD on 10/24/2022 1:59 PM Narrative 10/24/2022 1:59 PM CDT PROCEDURE: ??MRI BRAIN WWO CONTRAST, DATE/TIME OF EXAM: ??10/24/2022 10:56 AM, LOCATION ??[facility] INDICATION: I63.411: Acute cerebrovascular accident (CVA) [...] right lateral ventricle, and approximately 3-4 mm pzvre-ff-chll midline shift at the level of the [...] CONTRAST, DATE/TIME OF EXAM: 10/24/2022 10:56AM, LOCATION [facility] INDICATION: I63.411: Acute cerebrovascular accident (CVA) [...] the right lateral ventricle, and approximately 3-4mm zjoda-tj-znqx midline shift at the level of the [...] right lateral ventricle, and approximately 3-4 mm tfqss-lf-skgk midline shift, grossly similar to the prior. [...] Report dictated by Tim Major MD (residential installer). I, Jasper Sifuentes MD have personally reviewed and interpretedthis examination/study. > Interpreting Provider: Jasper Sifuentes MD on 10/24/2022 1:59 PM Emir Vail MD MR ORDERABLES * (ABNORMAL) GLUCOSE - POINT OF CARE (10/24/2022 9:15 AM CDT) Pathologist [facility] Glucose WB/POC 130(H) 70 - 115 mg/dL 10/24/2022 9:16 AM CDT [facility] Specimen Type Cap Fingerstick 2022 9:16 AM CDT [facility] Blood BLOOD SPECIMEN / Unknown 10/24/2022 9:15 AM CDT 10/24/2022 9:16 AM CDT Emir Vail MD LAB - POINT OF CARE ORDERABLES [facility] [address] [place] [address], [facility] [phone] * LAB MISC TEST (10/23/2022 8:29 PM CDT) Pathologist [facility] Test Name Phosphatidylserine Antibodies, IgG and IgM 10/27/2022 12:00 PM CDT [facility] Test Result See Scanned Report 10/27 12:00 PM CDT [facility] Comment Ref Lab [facility] 10/27/2022 12:00 PM CDT [facility] Blood BLOOD SPECIMEN / Unknown Venipuncture / Unknown 10/23/2022 8:29 PM CDT 10/23/2022 8:54 PM CDT Emir Vail MD LAB SEND OUT [address] [address] * (ABNORMAL) LUPUS ANTICOAGULANT PANEL (10/23/2022 8:29 PM CDT) Pathologist [facility] APTT 21.4(L) 23.0 - 38.4 Seconds 10/24/2022 10:58 AM CDT [facility] PT 13.4 12.1 - 14.8 Seconds 10/24/2022 10:58 AM [facility] INR 1.0 See Comment 10/24/2022 10:58 AM [facility] [place] Buffer 30.2 Seconds 023 10:58 AM [facility] [place] Phospholipid 26.9 Seconds 10/24/2022 10:58 AM [facility] [place] Delta 3.3 <8.0 Seconds 10/24/2022 10:58 AM [facility] Interpretation [place] Negative 10/24/2022 10:58 AM [facility] Comment:Up to 15-20% of douglas ents [...] Vail MD LAB - HEMATOLOGY ORD ERABLES [facility] [address] [place] [address], [facility] [phone] * CARDIOLIPIN ANTIBODY IGM (10/23/2022 8:29 PM CDT) [facility] Cardiolipin Antibody IgM <10 <=12 MPL 10/26/2022 1:32 AM CDT [facility] ([facility]) Comment: INTERPRETIVE INFORMATION: Anti-Cardiolipin IgM <=12 [...] other criteria phospholipid antibody tests. Performed By: [facility] [address] [place] [address] [employer] Supervisor: Boo Bond MD, PhD CLIA Number: [id number] Blood BLOOD SPECIMEN / Unknown Venipuncture / Unknown 10/23/2022 8:29 PM CDT 10/23/2022 9:18 PM CDT Emir Vail MD LAB - SEROLOGY ORDER NISSA [facility] [employer] [facility]) [address] [place] [address], [facility] * CARDIOLIPIN ANTIBODY IGG (10/23/2022 8:29 PM CDT) Cardiolipin Antibody IgG <10 <=14 GPL 10/26/2022 1:32 AM CDT [facility] [employer] ([facility]) Comment: INTERPRETIVE INFORMATION: Anti-Cardiolipin IgG Ab [...] other criteria phospholipid antibody tests. Performed By: [facility] [address] [place] [address] [employer] Supervisor: Boo Bond MD, PhD CLIA Number: [id number] Blood BLOOD SPECIMEN / Unknown Venipuncture / Unknown 10/23/2022 8:29 PM CDT 10/23/2022 9:19 PM CDT Emir Vail MD LAB - SEROLOGY ORDER NISSA [facility]) [address] [place] [address], [facility] * CARDIOLIPIN ANTIBODY IGA (10/23/2022 8:29 PM CDT) Cardiolipin Antibody IgA <10 <=11 APL 10/26/2022 9:11 AM CDT [facility] ([facility]) Comment: INTERPRETIVE INFORMATION: Cardiolipin Antibodies, IgA <=11 APL: Negative 12-19 APL: Indeterminate 20-80 APL: Low to Moderately ??Positive 81 APL or above: High Positive Performed By: [facility] [address] [place] [address] [employer] Supervisor: Boo Bond MD, PhD CLIA Number: [id number] Blood BLOOD SPECIMEN / Unknown Venipuncture / Unknown 10/23/2022 8:29 PM CDT 10/23/2022 9:19 PM CDT Emir Vail MD LAB - SEROLOGY ORDER NISSA Performing Organization Address [facility] Co de Phone Number [employer] [facility]) [address] [place] [address], [facility] * BETA-2 GLYCOPROTEIN 1 ANTIBODY IGG/IGM PANEL (10/23/2022 8:29 PM CDT) Beta-2 Glycoprotein Antibody IgG <10 <=20 SGU 10/26/2022 1:43 AM CDT [employer] ([facility]) Beta-2 Glycoprotein Antibody IgM <10 <=20 SMU 10/26/2022 1:43 AM CDT [facility]) Comment: INTERPRETIVE INFORMATION: S0Obyzobgsclee I, IgG and IgM Antibody The persistent [...] other criteria phospholipid antibody tests. Performed By: [facility] [address] [place] [address] [employer] Supervisor: Boo Bond MD, PhD CLIA Number: [id number] Blood BLOOD SPECIMEN / Unknown Venipuncture / Unknown 10/23/2022 8:29 PM CDT 10/23/2022 9:19 PM CDT Emir Vail MD LAB - CHEMISTRY [facility] [employer] [facility]) [address] [place] [address] * BETA-2 GLYCOPROTEIN 1 ANTIBODY IGA (10/23/2022 8:29 PM CDT) [facility] Beta-2 Glycoprotein Antibody IgA <10 <=20 TRUDI 10/26/2022 1:43 AM CDT [facility] ([facility]) Comment: Performed By: [facility] [address] [place] [address] [employer] Supervisor: Boo Bond MD, PhD CLIA Number: [id number] Blood BLOOD SPECIMEN / Unknown Venipuncture / Unknown 10/23/2022 8:29 PM CDT 10/23/2022 9:18 PM CDT Emir Vail MD LAB - SEROLOGY ORDER NISSA [facility]) [address] [place] [address] * (ABNORMAL) BASIC METABOLIC PANEL (CALCIUM TOTAL) (10/23/2022 8:29 PM CDT) [facility] BUN 14 7 - 26 mg/dL 10/23/2022 9:14 PM CDT [facility] Creatinine 0.56 0.56 - 0.96 mg/dL 10/23/2022 9:14 PM [facility] Sodium 140 136 - 145 mmol/L 10/23/2022 9:14 PM T [facility] Potassium 4.1 3.5 - 4.5 mmol/L 10/23/2022 9:14 PM T [facility] Chloride 110(H) 98 - 107 mmol/L 10/23/2022 9:14 PM T [facility] CO2 23 22 - 29 mmol/L 10/23/2022 9:14 PM [facility] Glucose 119(H) 70 - 115 mg/dL 10/23/2022 9:14 PM T [facility] Calcium 8.5 8.4 - 10.2 mg/dL 10/23/2022 9:14 PM T [facility] Anion Gap 11 8 - 18 10/23/2022 9:14 PM [facility] BUN/Creatinine Ratio 25(H) 7 - 23 10/23/2022 9:14 PM [facility] Osmolality Calculated 292 270 - 300 mOsm/kg 10/23/2022 9:14 PM [facility] eGFR by CKD-EPI >90 >=90 mL/min/1.7 3 m2 10/23/2022 9:14 PM [facility] Blood BLOOD SPECIMEN / Unknown Venipuncture / Unknown 10/23/2022 8:29 PM CDT 10/23/2022 8:48 PM CDT Emir Vail MD LAB - CHEMISTRY ORDE HIRAL [facility] Organization Address City/State/ZIP Co de Phone Number [facility] [address] [place] [address], [facility] [phone] * (ABNORMAL) CBC W AUTO DIFFERENTIAL (10/23/2022 8:29 PM CDT) WBC 17.4(H) 3.5 - 10.5 10? 3 /uL 10/23/2022 9:10 PM [facility] RBC 2.58(L) 3.80 - 5.20 10? 6 /uL 10/23/2022 9:10 PM [facility] Hemoglobin 8.0(L) 12.0 - 15.6 g/dL 10/23/2022 9:10 PM [facility] Hematocrit 24.4(L) 35.0 - 45.0 % 10/23/2022 9:10 PM [facility] MCV 94.6 80.7 - 98.3 fL 10/23/2022 9:10 PM [facility] MCH 31.0 26.7 - 34.0 pg 10/23/2022 9:10 PM [facility] MCHC 32.8 30.8 - 35.9 g/dL 10/23/2022 9:10 PM [facility] RDW-SD 46.7 36.0 - 50.0 fL 10/23/2022 9:10 PM [facility] RDW-CV 13.6 11.2 - 14.8 % 10/23/2022 9:10 PM [facility] Platelet Count 310 150 - 400 10? 3 /uL 10/23/2022 9:10 PM [facility] MPV 10.4 9.4 - 12.9 fL 10/23/2022 9:10 PM [facility] nRBC Absolute 0.03(H) 0 10? 3 /uL 10/23/2022 9:10 PM [facility] nRBC Auto 0.2(H) 0 /100 WBC 10/23/2022 9:10 PM [facility] Neutrophils % 69.8 35.0 - 70.0 % 10/23/2022 9:10 PM [facility] Lymphocytes % 19.2(L) 20.0 - 43.0 % 10/23/2022 9:10 PM [facility] Monocytes % 8.8 5.0 - 13.0 % 10/23/2022 9:10 PM [facility] Eosinophils % 1.1 0.0 - 6.0 % 10/23/2022 9:10 PM [facility] Basophil % 0.2 0.0 - 2.0 % 10/23/2022 9:10 PM [facility] Neutrophils Absolute 12.14(H) 1.60 - 7.00 10? 3 /uL 10/23/2022 9:10 PM [facility] Lymphocyte Absolute 3.33 1.10 - 3.90 10? 3 /uL 10/23/2022 9:10 PM [facility] Monocytes Absolute 1.52(H) 0.26 - 1.07 10? 3 /uL 10/23/2022 9:10 PM [facility] Eosinophils Absolute 0.19 0.00 - 0.47 10? 3 /uL 10/23/2022 9:10 PM [facility] Basophils Absolute 0.04 0.00 - 0.08 10? 3 /uL 10/23/2022 9:10 PM [facility] Immature Granulocytes % 0.9 0.0 - 1.0 % 10/23/2022 9:10 PM [facility] Immature Granulocytes Absolute 0.15 10/23/2022 9:10 PM [facility] Blood BLOOD SPECIMEN / Unknown Venipuncture / Unknown 10/23/2022 8:29 PM CDT 10/23/2022 8:58 PM CDT Emir Vail MD LAB - HEMATOLOGY [facility] [address] [address], [place] [phone] * PHOSPHORUS BLOOD (10/23/2022 8:29 PM CDT) Phosphorus 3.1 2.9 - 5.1 mg/dL 10/23/2022 9:14 PM CDT [facility] Blood BLOOD SPECIMEN / Unknown Venipuncture / Unknown 10/23/2022 8:29 PM CDT 10/23/2022 8:48 PM CDT Emir Vail MD LAB - CHEMISTRY [facility] [address] [address] [address], [place] [phone] * MAGNESIUM BLOOD (10/23/2022 8:29 PM CDT) Magnesium 2.1 1.6 - 2.6 mg/dL 10/23/2022 9:14 PM CDT [facility] Blood BLOOD SPECIMEN / Unknown Venipuncture / Unknown 10/23/2022 8:29 PM CDT 10/23/2022 8:48 PM CDT Emir Vail MD LAB - CHEMISTRY BIBIANA BLACKMAN [address] [address], [place] [phone] * GLUCOSE - POINT OF CARE (10/23/2022 5:57 PM CDT) Glucose WB/POC 105 70 - 115 mg/dL 10/23/2022 5:58 PM CDT [facility] Specimen Type Cap Fingerstick 2022 5:58 PM CDT [facility] Blood BLOOD SPECIMEN / Unknown 10/23/2022 5:57 PM CDT 10/23/2022 5:58 PM CDT Emir Vail MD LAB - POINT OF CARE ORDERABLES Performing Organization Address City/[facility]/ZIP Co de Phone Number [address] [address], [place] [phone] * (ABNORMAL) C-REACTIVE PROTEIN (10/23/2022 3:47 PM CDT) C-Reactive Protein 12.1(H) <=0.5 mg/dL 10/23/2022 4:19 PM CDT [facility] Blood BLOOD SPECIMEN / Unknown Line Draw / Unknown 10/23/2022 3:47 PM CDT 10/23/2022 3:55 PM CDT Emir Vail MD LAB - CHEMISTRY ORDE RABKAREN Performing Organization Address [facility]/ZIP Co de Phone Number [address] [address], [place] [phone] * (ABNORMAL) ERYTHROCYTE SEDIMENTATION RATE (10/23/2022 3:47 PM CDT) Erythrocyte Sedimentation Rate Westergren 55(H) 0 - 20 MM/HR 10/23/2022 4:25 PM CDT [facility] Blood BLOOD SPECIMEN / Unknown Line Draw / Unknown 10/23/2022 3:47 PM CDT 10/23/2022 3:59 PM CDT Emir Vail MD LAB - HEMATOLOGY ORD ERABLES Performing Organization Address [facility]/ZIP Co de Phone Number [address] [address], [place] [phone] * CT CARDIAC ANGIO STRUCT MORPH (10/23/2022 [...] DATE/TIME OF EXAM: ??10/23/2022 3:08 PM, LOCATION ??[facility] INDICATION: I63.411: Acute cerebrovascular accident (CVA) [...] DATE/TIME OF EXAM: 10/23/2022 3:08 PM, LOCATION [facility] INDICATION: I63.411: Acute cerebrovascular accident (CVA) [...] DATE/TIME OF EXAM: ??10/23/2022 1:53 PM, LOCATION ??[facility] INDICATION: R47.1: Dysarthria ADDITIONAL CLINICAL INFORMATION: Ordering Provider Reason For Exam: ??NGT placement COMPARISON: Portable KUB dated 10/20/2022 FINDINGS/IMPRESSION: The enteric tube courses below the diaphragm with tip superimposing the stomach. Drafted by Agnes Olmos DO (residential installer). Vanessa Ornelas MD have personally reviewed and interpreted this examination/study. > Interpreting Provider: Vanessa Kumar MD on 10/24/2022 8:31 AM Procedure Note Vanessa Kumar MD - 10/24/2022 PROCEDURE: XR ABDOMEN KUB PORTABLE, DATE/TIME OF EXAM: 10/23/2022 1:53PM, LOCATION [facility] INDICATION: R47.1: Dysarthria ADDITIONAL CLINICAL INFORMATION: Ordering Provider Reason For Exam: NGT placement COMPARISON: Portable KUB dated 10/20/2022 FINDINGS/IMPRESSION: The enteric tube courses below the diaphragm with tip superimposing the stomach. Drafted by Agnes Olmos DO (residential installer). Vanessa Ornelas MD have personally reviewed and interpreted this examination/study. > Interpreting Provider: Vanessa Kumar MD on 38:31 AM Emir Vail MD DIAGNOSTIC IMAGING O TIOERAJESES * MRSA DNA PCR (10/23/2022 12:34 PM CDT) MRSA DNA by PCR Not detected Not detected 10/23/2022 8:44 PM CDT [facility] Microbiology SPECIMEN FROM NASAL FOSSAE / Unknown Collection / Unknown 10/23/2022 12:34 PM CDT 10/23/2022 12:50 PM CDT Narrative [facility] - 10/23/2022 8:44 PM CDT Methicillin-resistant Staphylococcus aureus (MRSA) DNA is not detected (presumed not colonized with MRSA). Emir Vail MD LAB - MICROBIOLOGY O DIONI Performing Organization Address City/[facility]/ZIP Co de Phone Number [facility] [address] [place] [address], [facility] [phone] * CULTURE BLOOD (10/23/2022 12:16 PM CDT) Culture No growth day 5 ROSELIA 10/28/2022 5:02 PM CDT [facility] Blood PERIPHERAL BLOOD / Unknown Venipuncture / Unknown 10/23/2022 12:16 PM CDT 10/23/2022 12:28 PM CDT Emir Vail MD LAB - MICROBIOLOGY O DIONI Performing Organization Address [facility] Co de Phone Number [facility] [address] [place] [address], [facility] [phone] * CULTURE BLOOD (10/23/2022 12:05 PM CDT) Culture No growth day 5 ROSEILA 10/28/2022 5:02 PM CDT [facility] Blood PERIPHERAL BLOOD / Unknown Venipuncture / Unknown 10/23/2022 12:05 PM CDT 10/23/2022 12:28 PM CDT Emir Vail MD LAB - MICROBIOLOGY O DIONI Performing Organization Address City/[facility] Co de Phone Number [facility] [address] [place] [address], [facility] [phone] * GLUCOSE - POINT OF CARE (10/23/2022 11:24 AM CDT) Glucose WB/POC 113 70 - 115 mg/dL 10/23/2022 11:25 AM CDT [facility] Specimen Type Cap Fingerstick 2022 11:25 AM CDT [facility] Blood BLOOD SPECIMEN / Unknown 10/23/2022 11:24 AM CDT 10/23/2022 11:25 AM CDT Emir Vail MD LAB - POINT OF CARE ORDERABLES [facility] [address] [place] [address], [facility] [phone] * ECHO SARAH COMPLETE (10/23/2022 9:07 AM [...] contrast. The probe was inserted by the drafter (cad) electrical. There was moderate probe insertion difficulty. Moderate sedation was given. Sedation was managed by the drafter (cad) electrical. Lidocaine administered during the study. 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 Endotracheal tube terminates in the midthoracic trachea. There is no focal consolidation. No pleural effusion or pneumothorax. The cardiomediastinal silhouette is normal. No acute osseous abnormality. Report dictated by Agnes Olmos DO (residential installer). IVanessa MD have personally reviewed and interpreted this examination/study. 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 Endotracheal tube terminates in the midthoracic trachea. There is no focal consolidation. No pleural effusion or pneumothorax.The cardiomediastinal silhouette is normal. No acute osseous abnormality. Report dictated by Agnes Olmos DO (residential installer). Vanessa Ornelas MD have personally reviewed and [...] is dictated by Miranda Bowen MD (residential installer) Jasper Ornelas MD have personally reviewed and interpreted this examination/study. > Interpreting Provider: Jasper Sifuentes MD on 10/23/2022 9:16 AM Narrative 10/23/2022 9:16 AM CDT PROCEDURE: ??CT HEAD WO CONTRAST, DATE/TIME OF EXAM: ??10/23/2022 5:53 AM, LOCATION ??[facility] INDICATION: I63.511: Right middle cerebral artery [...] DATE/TIME OF EXAM: 10/23/2022 5:53 AM, LOCATION [facility] INDICATION: I63.511: Right middle cerebral artery [...] is dictated by Miranda Bowen MD (residential installer) I, Jasper Sifuentes MD have personally reviewed and interpretedthis examination/study. > Interpreting Provider: Jasper Sifuentes MD on 10/23/2022 9:16 AM Emir Vail MD CT ORDERABLES * (ABNORMAL) BASIC METABOLIC PANEL (CALCIUM TOTAL) (10/23/2022 1:29 AM CDT) Pathologist [facility] BUN 13 7 - 26 mg/dL 10/23/2022 2:09 AM CDT [facility] Creatinine 0.51(L) 0.56 - 0.96 mg/dL 10/23/2022 2:09 AM [facility] Sodium 140 136 - 145 mmol/L 10/23/2022 2:09 AM [facility] Potassium 3.4(L) 3.5 - 4.5 mmol/L 10/23/2022 2:09 AM [facility] Chloride 108(H) 98 - 107 mmol/L 10/23/2022 2:09 AM [facility] CO2 25 22 - 29 mmol/L 10/23/2022 2:09 AM [facility] Glucose 132(H) 70 - 115 mg/dL 10/23/2022 2:09 AM [facility] Calcium 8.3(L) 8.4 - 10.2 mg/dL 10/23/2022 2:09 AM [facility] Anion Gap 10 8 - 18 10/23/2022 2:09 AM [facility] BUN/Creatinine Ratio 25(H) 7 - 23 10/23/2022 2:09 AM [facility] Osmolality Calculated 292 270 - 300 mOsm/kg 10/23/2022 2:09 AM [facility] eGFR by CKD-EPI >90 >=90 mL/min/1.7 3 m2 10/23/2022 2:09 AM [facility] Blood BLOOD SPECIMEN / Unknown Venipuncture / Unknown 10/23/2022 1:29 AM CDT 10/23/2022 1:40 AM T Emir Vail MD LAB - CHEMISTRY BIBIANA BLACKMAN [facility] Organization Address City/State/ZIP Co de Phone Number [facility] [address] [place] [address], [facility] [phone] * (ABNORMAL) CBC W AUTO DIFFERENTIAL (10/23/2022 1:29 AM CDT) WBC 16.7(H) 3.5 - 10.5 10? 3 /uL 10/23/2022 1:43 AM [facility] RBC 2.52(L) 3.80 - 5.20 10? 6 /uL 10/23/2022 1:43 AM [facility] Hemoglobin 7.8(L) 12.0 - 15.6 g/dL 10/23/2022 1:43 AM [facility] Hematocrit 23.8(L) 35.0 - 45.0 % 10/23/2022 1:43 AM [facility] MCV 94.4 80.7 - 98.3 fL 10/23/2022 1:43 AM [facility] MCH 31.0 26.7 - 34.0 pg 10/23/2022 1:43 AM [facility] MCHC 32.8 30.8 - 35.9 g/dL 10/23/2022 1:43 AM [facility] RDW-SD 46.7 36.0 - 50.0 fL 10/23/2022 1:43 AM [facility] RDW-CV 13.5 11.2 - 14.8 % 10/23/2022 1:43 AM [facility] Platelet Count 265 150 - 400 10? 3 /uL 10/23/2022 1:43 AM [facility] MPV 10.3 9.4 - 12.9 fL 10/23/2022 1:43 AM [facility] nRBC Absolute 0.00 0 10? 3 /uL 10/23/2022 1:43 AM [facility] nRBC Auto 0.0 0 /100 WBC 10/23/2022 1:43 AM [facility] Neutrophils % 70.7(H) 35.0 - 70.0 % 10/23/2022 1:43 AM [facility] Lymphocytes % 18.4(L) 20.0 - 43.0 % 10/23/2022 1:43 AM [facility] Monocytes % 9.2 5.0 - 13.0 % 10/23/2022 1:43 AM [facility] Eosinophils % 0.6 0.0 - 6.0 % 10/23/2022 1:43 AM [facility] Basophil % 0.3 0.0 - 2.0 % 10/23/2022 1:43 AM [facility] Neutrophils Absolute 11.79(H) 1.60 - 7.00 10? 3 /uL 10/23/2022 1:43 AM CDT [facility] Lymphocyte Absolute 3.07 1.10 - 3.90 10? 3 /uL 10/23/2022 1:43 AM CDT [facility] Monocytes Absolute 1.54(H) 0.26 - 1.07 10? 3 /uL 10/23/2022 1:43 AM CDT [facility] Eosinophils Absolute 0.10 0.00 - 0.47 10? 3 /uL 10/23/2022 1:43 AM CDT [facility] Basophils Absolute 0.05 0.00 - 0.08 10? 3 /uL 10/23/2022 1:43 AM CDT [facility] Immature Granulocytes % 0.8 0.0 - 1.0 % 10/23/2022 1:43 AM CDT [facility] Immature Granulocytes Absolute 0.13 10/23/2022 1:43 AM CDT [facility] Blood BLOOD SPECIMEN / Unknown Venipuncture / Unknown 10/23/2022 1:29 AM CDT 10/23/2022 1:40 AM CDT Emir Vail MD LAB - HEMATOLOGY ORD ERABLES [address] [address], [facility] [phone] * PHOSPHORUS BLOOD (10/23/2022 1:29 AM CDT) Phosphorus 3.4 2.9 - 5.1 mg/dL 10/23/2022 2:09 AM CDT [facility] Blood BLOOD SPECIMEN / Unknown Venipuncture / Unknown 10/23/2022 1:29 AM CDT 10/23/2022 1:40 AM CDT Emir Vail MD LAB - CHEMISTRY ORDDanyelle BLACKMAN [address] [address], [place] [phone] * MAGNESIUM BLOOD (10/23/2022 1:29 AM CDT) Magnesium 2.0 1.6 - 2.6 mg/dL 10/23/2022 2:09 AM CDT [facility] Blood BLOOD SPECIMEN / Unknown Venipuncture / Unknown 10/23/2022 1:29 AM CDT 10/23/2022 1:40 AM CDT Emir Vail MD LAB - CHEMISTRY BIBIANA BLACKMAN Performing Organization Address City/[facility]/ZIP Co de Phone Number [address] [address], [place] [phone] * (ABNORMAL) GLUCOSE - POINT OF CARE (10/22/2022 11:00 PM CDT) Glucose WB/POC 124(H) 70 - 115 mg/dL 10/22/2022 11:05 PM CDT [facility] Specimen Type Cap Fingerstick 2022 11:05 PM CDT [facility] Blood BLOOD SPECIMEN / Unknown 10/22/2022 11:00 PM CDT 10/22/2022 11:05 PM CDT Emir Vail MD LAB - POINT OF CARE ORDERABLES Performing Organization Address City/[facility]/ZIP Co de Phone Number [address] [address], [place] [phone] * (ABNORMAL) GLUCOSE - POINT OF CARE (10/22/2022 5:41 PM CDT) Glucose WB/POC 127(H) 70 - 115 mg/dL 10/22/2022 5:42 PM CDT [facility] Specimen Type Cap Fingerstick 2022 5:42 PM CDT [facility] Blood BLOOD SPECIMEN / Unknown 10/22/2022 5:41 PM CDT 10/22/2022 5:42 PM CDT Emir Vail MD LAB - POINT OF CARE ORDERABLES [address] [address], [place] [phone] * GLUCOSE - POINT OF CARE (10/22/2022 2:57 PM CDT) Glucose WB/POC 98 70 - 115 mg/dL 10/22/2022 2:59 PM CDT [facility] Specimen Type Cap Fingerstick 2022 2:59 PM CDT [facility] Blood BLOOD SPECIMEN / Unknown 10/22/2022 2:57 PM CDT 10/22/2022 2:59 PM CDT Emir Vail MD LAB - POINT OF CARE ORDERABLES [facility] [address] [place] [address], [facility] [phone] * CT HEAD WO CONTRAST (10/22/2022 2:32 [...] hemorrhage. Report dictated by Lorenzo Horta MD (vice president sales). I, Lonnie Rae MD have personally [...] hemorrhage. Report dictated by Lorenzo Horta MD (vice president sales). ILonnie MD have personally reviewed and interpreted this examination/study. > Interpreting Provider: Lonnie Rae MD on 10/22/2022 3:10 PM Emir Vail MD CT ORDERABLES * GLUCOSE - POINT OF CARE (10/22/2022 8:58 AM CDT) Glucose WB/POC 109 70 - 115 mg/dL 10/22/2022 8:59 AM CDT [facility] Specimen Type Cap Fingerstick 2022 8:59 AM CDT [facility] Blood BLOOD SPECIMEN / Unknown 10/22/2022 8:58 AM CDT 10/22/2022 8:59 AM CDT Emir Vail MD LAB - POINT OF CARE ORDERABLES [address] [address], [facility] [phone] * CT HEAD WO CONTRAST (10/22/2022 5:35 [...] DATE/TIME OF EXAM: ??10/22/2022 5:35 AM, LOCATION ??[facility] 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 3 /uL 10/22/2022 2:21 AM CDT [facility] Blood BLOOD SPECIMEN / Unknown Venipuncture / Unknown 10/22/2022 1:53 AM CDT 10/22/2022 2:05 AM CDT Emir Vail MD LAB - HEMATOLOGY ORD ERABLES [address] [address], [place] [phone] * (ABNORMAL) GLUCOSE - POINT OF CARE (10/21/2022 11:18 PM CDT) [facility] Glucose WB/POC 171(H) 70 - 115 mg/dL 10/21/2022 11:23 PM CDT [facility] Specimen Type Venous 10/21/2022 11:23 PM CDT [facility] Blood BLOOD SPECIMEN / Unknown 10/21/2022 11:18 PM CDT 10/21/2022 11:23 PM CDT Emir Vail MD LAB - POINT OF CARE ORDERABLES [address] [address], [place] [phone] * (ABNORMAL) BASIC METABOLIC PANEL (CALCIUM TOTAL) (10/21/2022 11:16 PM CDT) [facility] BUN 16 7 - 26 mg/dL 10/21/2022 11:51 PM CDT [facility] Creatinine 0.65 0.56 - 0.96 mg/dL 10/21/2022 11:51 PM CDT [facility] Sodium 142 136 - 145 mmol/L 10/21/2022 11:51 PM [facility] Potassium 3.7 3.5 - 4.5 mmol/L 10/21/2022 11:51 PM [facility] Chloride 111(H) 98 - 107 mmol/L 10/21/2022 11:51 PM [facility] CO2 20(L) 22 - 29 mmol/L 10/21/2022 11:51 PM [facility] Glucose 120(H) 70 - 115 mg/dL 10/21/2022 11:51 PM [facility] Calcium 8.0(L) 8.4 - 10.2 mg/dL 10/21/2022 11:51 PM [facility] Anion Gap 15 8 - 18 10/21/2022 11:51 PM [facility] BUN/Creatinine Ratio 25(H) 7 - 23 10/21/2022 11:51 PM [facility] Osmolality Calculated 296 270 - 300 mOsm/kg 10/21/2022 11:51 PM [facility] eGFR by CKD-EPI >90 >=90 mL/min/1.7 3 m2 10/21/2022 11:51 PM [facility] Blood BLOOD SPECIMEN / Unknown Venipuncture / Unknown 10/21/2022 11:16 PM CDT 10/21/2022 11:27 PM CDT Emir Vail MD LAB - CHEMISTRY BIBIANA BLACKMAN [facility] Organization Address City/State/ZIP Co de Phone Number [facility] [address] [place] [address], [facility] [phone] * (ABNORMAL) CBC W AUTO DIFFERENTIAL (10/21/2022 11:16 PM CDT) WBC 18.4(H) 3.5 - 10.5 10? 3 /uL 10/22/2022 12:26 AM [facility] RBC 2.62(L) 3.80 - 5.20 10? 6 /uL 10/22/2022 12:26 AM [facility] Hemoglobin 8.1(L) 12.0 - 15.6 g/dL 10/22/2022 12:26 AM [facility] Hematocrit 25.1(L) 35.0 - 45.0 % 10/22/2022 12:26 AM [facility] MCV 95.8 80.7 - 98.3 fL 10/22/2022 12:26 AM [facility] MCH 30.9 26.7 - 34.0 pg 10/22/2022 12:26 AM [facility] MCHC 32.3 30.8 - 35.9 g/dL 10/22/2022 12:26 AM [facility] RDW-SD 48.6 36.0 - 50.0 fL 10/22/2022 12:26 AM [facility] RDW-CV 14.0 11.2 - 14.8 % 10/22/2022 12:26 AM [facility] Platelet Count 10/22/2022 12:26 AM [facility] Comment: Platelets are clumped, appear as decreased on the slide. ??A blue top citrated tube is required for a platelet count. ?? Notified Shauna Martines RN ??at 1225 on 10/22/2022. MPV 10/22/2022 12:26 AM [facility] Comment:Unable to Report Immature Platelet Fraction 10/22/2022 12:26 AM [facility] Comment:Unable to Report nRBC Absolute 0.00 0 10? 3 /uL 10/22/2022 12:26 AM [facility] nRBC Auto 0.0 0 /100 WBC 10/22/2022 12:26 AM [facility] Neutrophils % 69.8 35.0 - 70.0 % 10/22/2022 12:26 AM [facility] Lymphocytes % 18.4(L) 20.0 - 43.0 % 10/22/2022 12:26 AM [facility] Monocytes % 10.9 5.0 - 13.0 % 10/22/2022 12:26 AM [facility] Eosinophils % 0.1 0.0 - 6.0 % 10/22/2022 12:26 AM [facility] Basophil % 0.1 0.0 - 2.0 % 10/22/2022 12:26 AM [facility] Neutrophils Absolute 12.87(H) 1.60 - 7.00 10? 3 /uL 10/22/2022 12:26 AM [facility] Lymphocyte Absolute 3.38 1.10 - 3.90 10? 3 /uL 10/22/2022 12:26 AM [facility] Monocytes Absolute 2.00(H) 0.26 - 1.07 10? 3 /uL 10/22/2022 12:26 AM [facility] Eosinophils Absolute 0.01 0.00 - 0.47 10? 3 /uL 10/22/2022 12:26 AM [facility] Basophils Absolute 0.02 0.00 - 0.08 10? 3 /uL 10/22/2022 12:26 AM [facility] Immature Granulocytes % 0.7 0.0 - 1.0 % 10/22/2022 12:26 AM [facility] Immature Granulocytes Absolute 0.13 10/22/2022 12:26 AM [facility] Blood BLOOD SPECIMEN / Unknown Venipuncture / Unknown 10/21/2022 11:16 PM CDT 10/21/2022 11:27 PM CDT Emir Vail MD LAB - HEMATOLOGY ORD ERABLES [address] [address], [place] [phone] * (ABNORMAL) PHOSPHORUS BLOOD (10/21/2022 11:16 PM CDT) Phosphorus 2.7(L) 2.9 - 5.1 mg/dL 10/21/2022 11:51 PM CDT [facility] Blood BLOOD SPECIMEN / Unknown Venipuncture / Unknown 10/21/2022 11:16 PM CDT 10/21/2022 11:27 PM CDT Emir Vail MD LAB - CHEMISTRY ORDE HIRAL [address] [address], [place] [phone] * MAGNESIUM BLOOD (10/21/2022 11:16 PM CDT) Magnesium 2.2 1.6 - 2.6 mg/dL 10/21/2022 11:51 PM CDT [facility] Blood BLOOD SPECIMEN / Unknown Venipuncture / Unknown 10/21/2022 11:16 PM CDT 10/21/2022 11:27 PM CDT Emir Vail MD LAB - CHEMISTRY BIBIANA BLACKMAN [facility] [address] [place] [address], [place] [phone] * (ABNORMAL) GLUCOSE - POINT OF CARE (10/21/2022 6:43 PM CDT) Glucose WB/POC 129(H) 70 - 115 mg/dL 10/21/2022 6:44 PM CDT [facility] Specimen Type Cap Fingerstick 2022 6:44 PM CDT [facility] Blood BLOOD SPECIMEN / Unknown 10/21/2022 6:43 PM CDT 10/21/2022 6:44 PM CDT Emir Vail MD LAB - POINT OF CARE ORDERABLES [facility] [address] [place] [address], [place] [phone] * (ABNORMAL) GLUCOSE - POINT OF CARE (10/21/2022 12:10 PM CDT) Glucose WB/POC 127(H) 70 - 115 mg/dL 10/21/2022 12:15 PM CDT [facility] Specimen Type Cap Fingerstick 2022 12:15 PM CDT [facility] Blood BLOOD SPECIMEN / Unknown 10/21/2022 12:10 PM CDT 10/21/2022 12:14 PM CDT Emir Vail MD LAB - POINT OF CARE ORDERABLES [facility] [address] [place] [address], [facility] [phone] * XR CHEST 1VW PORTABLE (10/21/2022 8:53 AM CDT) Anatomical Region Laterality Modality Chest Radiographic Irene ging 10/21/2022 2:30 PM CDT Narrative 10/21/2022 5:59 PM CDT PROCEDURE: ??XR CHEST 1VW PORTABLE, DATE/TIME OF EXAM: ??10/21/2022 8:53 AM, LOCATION ??[facility] INDICATION: R53.1: Weakness ADDITIONAL CLINICAL INFORMATION: [...] dictated by Christopher Tobin MD, MD (residential installer). HEATHER Ornelas MD have personally reviewed and interpreted this examination/study. > Interpreting Provider: HEATHER FREGOSO MD on 10/21/2022 5:59 PM Procedure Note Heather Fregoso MD - 10/21/2022 PROCEDURE: XR CHEST 1VW PORTABLE, DATE/TIME OF EXAM: 10/21/2022 8:53AM, LOCATION [facility] INDICATION: R53.1: Weakness ADDITIONAL CLINICAL INFORMATION: [...] dictated by Christopher Tobin MD, MD (residential installer). HEATHER Ornelas MD have personally reviewed and interpreted this examination/study. > Interpreting Provider: HEATHER FREGOSO MD on 10/21/2022 5:59 PM Emir Vail MD DIAGNOSTIC IMAGING O RDERABLES * (ABNORMAL) BLOOD GASES ART + COOX PANEL (10/21/2022 8:01 AM [facility]) pH Arterial 7.40 7.35 - 7.45 pH 10/21/2022 8:09 AM [facility] pO2 Arterial 143(H) 80 - 100 mmHg 10/21/2022 8:09 AM [facility] pCO2 Arterial 31(L) 35 - 45 mmHg 8:09 AM [facility] HCO3 Arterial 19.2(L) 20.0 - 30.0 mmol/L 10/21/2022 8:09 AM [facility] BE Arterial -4.8(L) -2.0 - 2.0 mmol/L 10/21/2022 8:09 AM [facility] Oxyhemoglobin Arterial 97.2 % 10/21/2022 8:09 AM [facility] Dexoyhemoglobin (HHB) % <1.0 % 10/21/2022 8:09 AM [facility] Methemoglobin <0.8 0.0 - 2.0 % 10/21/2022 8:09 AM [facility] Carboxyhemoglobin 1.4 0.0 - 2.0 % 2022 8:09 AM [facility] O2 Content Arterial 13.6 Interpret within clinical context ml/dL 10/21/2022 8:09 AM [facility] Hemoglobin by COOX 9.7(L) 12.0 - 15.6 g/dL 10/21/2022 8:09 AM [facility] O2 Saturation Arterial 99 90 - 100 % 10/21/2022 8:09 AM [facility] FI O2 Arterial 30.0 % 10/21/2022 8:09 AM [facility] Blood, arterial ARTERIAL BLOOD SPECIMEN / Unknown Arterial Puncture / Unknown 10/21/2022 8:01 AM CDT 10/21/2022 8:05 AM CDT [facility] - 10/21/2022 8:09 AM CDT Carboxyhemoglobin Normal Concentration: Non-smokers: 0-2%; Smokers: 0-9%; Toxic: >20% Emir Vail MD LAB - BLOOD GASES OR DERABLES [facility] [address] [place] [address], [facility] [phone] * (ABNORMAL) CBC W AUTO DIFFERENTIAL (10/21/2022 7:53 AM CDT) WBC 18.6(H) 3.5 - 10.5 10? 3 /uL 10/21/2022 8:11 AM [facility] RBC 3.01(L) 3.80 - 5.20 10? 6 /uL 10/21/2022 8:11 AM [facility] Hemoglobin 9.4(L) 12.0 - 15.6 g/dL 10/21/2022 8:11 AM [facility] Hematocrit 27.9(L) 35.0 - 45.0 % 10/21/2022 8:11 AM [facility] MCV 92.7 80.7 - 98.3 fL 10/21/2022 8:11 AM [facility] MCH 31.2 26.7 - 34.0 pg 10/21/2022 8:11 AM [facility] MCHC 33.7 30.8 - 35.9 g/dL 10/21/2022 8:11 AM [facility] RDW-SD 47.8 36.0 - 50.0 fL 10/21/2022 8:11 AM [facility] RDW-CV 14.1 11.2 - 14.8 % 10/21/2022 8:11 AM [facility] Platelet Count 259 150 - 400 10? 3 /uL 10/21/2022 8:11 AM [facility] MPV 10.5 9.4 - 12.9 fL 10/21/2022 8:11 AM [facility] nRBC Absolute 0.00 0 10? 3 /uL 10/21/2022 8:11 AM [facility] nRBC Auto 0.0 0 /100 WBC 10/21/2022 8:11 AM [facility] Neutrophils % 86.9(H) 35.0 - 70.0 % 10/21/2022 8:11 AM [facility] Lymphocytes % 7.3(L) 20.0 - 43.0 % 10/21/2022 8:11 AM [facility] Monocytes % 5.1 5.0 - 13.0 % 10/21/2022 8:11 AM [facility] Eosinophils % 0.0 0.0 - 6.0 % 10/21/2022 8:11 AM [facility] Basophil % 0.1 0.0 - 2.0 % 10/21/2022 8:11 AM [facility] Neutrophils Absolute 16.12(H) 1.60 - 7.00 10? 3 /uL 10/21/2022 8:11 AM [facility] Lymphocyte Absolute 1.36 1.10 - 3.90 10? 3 /uL 10/21/2022 8:11 AM [facility] Monocytes Absolute 0.94 0.26 - 1.07 10? 3 /uL 10/21/2022 8:11 AM [facility] Eosinophils Absolute 0.00 0.00 - 0.47 10? 3 /uL 10/21/2022 8:11 AM [facility] Basophils Absolute 0.02 0.00 - 0.08 10? 3 /uL 10/21/2022 8:11 AM [facility] Immature Granulocytes % 0.6 0.0 - 1.0 % 10/21/2022 8:11 AM [facility] Immature Granulocytes Absolute 0.12 10/21/2022 8:11 AM [facility] Blood BLOOD SPECIMEN / Unknown Line Draw / Unknown 10/21/2022 7:53 AM CDT 10/21/2022 8:06 AM [facility] Emir Vail MD LAB - HEMATOLOGY ORD ERABLES [facility] [address] [place] [address], [facility] [phone] * TROPONIN-I HIGH SENSITIVE REFLEX 1HOUR (10/21/2022 7:53 AM CDT) Troponin I High Sensitive <3 <=14 ng/L 10/21/2022 8:54 AM CDT [facility] Delta Troponin I HS 10/21/2022 8:54 AM CDT [facility] Comment:Delta value intentio princess not calculated. Baseline to 1 hour specimen collection interval exceeded. Blood BLOOD SPECIMEN / Unknown Line Draw / Unknown 10/21/2022 7:53 AM CDT 10/21/2022 8:06 AM CDT Jim Walter MD LAB - CHEMISTRY ORD DIMAS [address] [address], [facility] [phone] * (ABNORMAL) PHOSPHORUS BLOOD (10/21/2022 4:59 AM CDT) Pathologist [facility] Phosphorus 2.2(L) 2.9 - 5.1 mg/dL 10/21/2022 5:46 AM CDT [facility] Blood BLOOD SPECIMEN / Unknown Venipuncture / Unknown 10/21/2022 4:59 AM CDT 10/21/2022 5:09 AM CDT Good Antunez MD LAB - CHEMISTRY B[facility]NA BLACKMAN [address] [address], [facility] [phone] * MAGNESIUM BLOOD (10/21/2022 4:59 AM CDT) Magnesium 2.2 1.6 - 2.6 mg/dL 10/21/2022 5:47 AM CDT [facility] Comment:Hemolysis detected i n this specimen. Hemolysis is known to cause elevations in this analyte. Caution should be exercised in the interpretation of this result. Recommend repeat testing if clinically indicated. Blood BLOOD SPECIMEN / Unknown Venipuncture / Unknown 10/21/2022 4:59 AM CDT 10/21/2022 5:09 AM CDT Good Antunez MD LAB - CHEMISTRY BIBIANA BLACKMAN [facility] Organization Address City/State/ZIP Co de Phone Number [facility] [address] [place] [address], [facility] [phone] * (ABNORMAL) CBC W/O DIFFERENTIAL (10/21/2022 4:59 AM CDT) WBC 18.7(H) 3.5 - 10.5 10? 3 /uL 10/21/2022 5:25 AM CDT [facility] RBC 2.98(L) 3.80 - 5.20 10? 6 /uL 10/21/2022 5:25 AM [facility] Hemoglobin 9.4(L) 12.0 - 15.6 g/dL 10/21/2022 5:25 AM [facility] Hematocrit 27.8(L) 35.0 - 45.0 % 10/21/2022 5:25 AM [facility] MCV 93.3 80.7 - 98.3 fL 10/21/2022 5:25 AM [facility] MCH 31.5 26.7 - 34.0 pg 10/21/2022 5:25 AM [facility] MCHC 33.8 30.8 - 35.9 g/dL 10/21/2022 5:25 AM [facility] RDW-SD 48.8 36.0 - 50.0 fL 10/21/2022 5:25 AM [facility] RDW-CV 14.3 11.2 - 14.8 % 10/21/2022 5:25 AM [facility] Platelet Count 260 150 - 400 10? 3 /uL 10/21/2022 5:25 AM [facility] MPV 10.6 9.4 - 12.9 fL 10/21/2022 5:25 AM [facility] nRBC Absolute 0.00 0 10? 3 /uL 10/21/2022 5:25 AM [facility] nRBC Auto 0.0 0 /100 WBC 10/21/2022 5:25 AM [facility] Blood BLOOD SPECIMEN / Unknown Venipuncture / Unknown 10/21/2022 4:59 AM CDT 10/21/2022 5:10 AM CDT Good Antunez MD LAB - HEMATOLOGY ORD ERABLES [facility] [address] [place] [address], [facility] [phone] * (ABNORMAL) BASIC METABOLIC PANEL (CALCIUM TOTAL) (10/21/2022 4:59 AM CDT) BUN 12 7 - 26 mg/dL 10/21/2022 5:47 AM [facility] Creatinine 0.64 0.56 - 0.96 mg/dL 10/21/2022 5:47 AM [facility] Sodium 142 136 - 145 mmol/L 10/21/2022 5:47 AM [facility] Potassium 4.8(H) 3.5 - 4.5 mmol/L 10/21/2022 5:47 AM [facility] Comment:Hemolysis detected i n this specimen. Hemolysis may cause false elevations in potassium leading to pseudohyperkalemia or masked hypokalemia. Recommend repeat testing if clinically indicated. Chloride 115(H) 98 - 107 mmol/L 10/21/2022 5:47 AM [facility] CO2 16(L) 22 - 29 mmol/L 10/21/2022 5:47 AM [facility] Glucose 169(H) 70 - 115 mg/dL 10/21/2022 5:47 AM [facility] Calcium 8.2(L) 8.4 - 10.2 mg/dL 10/21/2022 5:47 AM [facility] Anion Gap 16 8 - 18 10/21/2022 5:47 AM [facility] BUN/Creatinine Ratio 19 7 - 23 10/10 5:47 AM [facility] Osmolality Calculated 298 270 - 300 mOsm/kg 10/21/2022 5:47 AM [facility] eGFR by CKD-EPI >90 >=90 mL/min/1. 73 m2 10/21/2022 5:47 AM CDT [facility] Blood BLOOD SPECIMEN / Unknown Venipuncture / Unknown 10/21/2022 4:59 AM CDT 10/21/2022 5:09 AM CDT Good Antunez MD LAB - CHEMISTRY BIBIANA BLACKMAN Performing Organization Address City/[facility]/ZIP Co de Phone Number [facility] [address] [place] [address], [facility] [phone] * SARAH BLOOD SCREEN W/REFLEX TITER (10/21/2022 4:59 AM CDT) SARAH IgG None Detected None Detected 10/22/2022 10:36 PM CDT [facility] ([facility]) Comment: If suspicion of connective tissue disease is strong and SARAH EIA is negative, consider testing for SARAH by IFA ([id number]). INTERPRETIVE INFORMATION: Anti-Nuclear Antibodies (SARAH), IgG by EZIO Antinuclear Antibodies (SAARH), IgG by EZIO: SARAH specimens are screened using enzyme-linked immunosorbent assay (EZIO) methodology. All EZIO results reported as Detected are further tested by indirect fluorescent assay (IFA) using HEp-2 substrate with an IgG-specific conjugate. The SARAH EZIO screen is designed to detect antibodies against dsDNA, histones, SS-A (Ro), SS-B (La), Goodwin, Goodwin/JEWELRY SALES COORDINATOR, Scl-70, Sariah-1, centromeric proteins, other antigens extracted from the HEp-2 cell nucleus. SARAH EZIO assays have been reported to have lower sensitivities than SARAH IFA for systemic autoimmune rheumatic diseases (SARD). Negative results do not necessarily rule out SARD. Performed By: [facility] [address] [place] [address] [employer] Supervisor: Boo Bond MD, PhD CLIA Number: [id number] Blood BLOOD SPECIMEN / Unknown Venipuncture / Unknown 10/21/2022 4:59 AM CDT 10/21/2022 5:06 AM CDT Good Antunez MD LAB - CHEMISTRY BIB[place]NA BLACKMAN [facility]) [address] [place] [address], [facility] * FACTOR V LEIDEN MUTATION PANEL (10/21/2022 4:59 AM CDT) [facility] Factor V Leiden Source Whole Blood 10/26/2022 4:46 PM CDT [facility] ([facility]) Factor V Leiden PCR/FRET Negative 10/26/2022 4:46 PM CDT [facility] ([facility]) Comment: Indication for testing: Assess genetic risk for thrombosis. NEGATIVE: The factor V Leiden variant, c.1601G>A; p.[id number], was not detected. This does not exclude [...] function in the F5 gene variant c.1601G>A (p.[id number]). Legacy nomenclature: [id number] (1691G>A) CLINICAL SENSITIVITY: 20-50 percent of individuals with an isolated VTE have the FVL variant. METHODOLOGY: Polymerase chain reaction and fluorescence monitoring. ANALYTICAL SENSITIVITY AND SPECIFICITY: 99 percent. LIMITATIONS: Diagnostic errors can occur due to rare sequence variations. F5 gene mutations, other than [id number], will not be detected. This test was developed and its performance characteristics determined by [facility] [employer]. It has not been cleared or approved by the [place] Food and Drug Administration. This test was performed in a CLIA certified laboratory and is intended for clinical purposes. Counseling and informed consent are recommended for genetic testing. Consent forms are available online. Performed By: [address] [address] [employer] Supervisor: Boo Bond MD, PhD CLIA Number: [id number] Blood BLOOD SPECIMEN / Unknown Venipuncture / Unknown 10/21/2022 4:59 AM CDT 10/21/2022 5:10 AM CDT Good Antunez MD LAB - COAGULATION OR DERABLES Performing Organization Address City/[facility]/ZIP Co de Phone Number [facility] ([facility]) [address] [place] [id number] * COMPLEMENT C3 (10/21/2022 4:59 AM CDT) Pathologist [facility] [place] Complement C3 155 82 - 193 mg/dL 10/21/2022 5:47 AM CDT [facility] Blood BLOOD SPECIMEN / Unknown Venipuncture / Unknown 10/21/2022 4:59 AM CDT 10/21/2022 5:09 AM CDT Good Antunez MD LAB - CHEMISTRY ORDE ANNEMARIELES [facility] [address] [place] [address], [facility] [phone] * RHEUMATOID FACTOR BLOOD QUANTITATIVE (10/21/2022 4:59 AM CDT) Pathologist [facility] Rheumatoid Factor <15 <30 IU/mL 10/21/2022 5:36 AM CDT [facility] Rheumatoid Factor Screen Negative Negative 10/21/2022 5:36 AM CDT [facility] Blood BLOOD SPECIMEN / Unknown Venipuncture / Unknown 10/21/2022 4:59 AM CDT 10/21/2022 5:06 AM CDT Good Antunez MD LAB - CHEMISTRY BIB[place]NA BLACKMAN Performing Organization Address City/[facility]/ZIP Co de Phone Number [address] [address], [place] [phone] * TROPONIN-I HIGH SENSITIVE BASELINE + 1HR (10/21/2022 4:59 AM CDT) Troponin I High Sensitive <3 <=14 ng/L 10/21/2022 5:46 AM CDT [facility] Blood BLOOD SPECIMEN / Unknown Venipuncture / Unknown 10/21/2022 4:59 AM CDT 10/21/2022 5:09 AM CDT Jim Walter MD LAB - CHEMISTRY ORD DIMAS Performing Organization Address [facility]/ZIP Co de Phone Number [address] [address], [place] [phone] * (ABNORMAL) GLUCOSE - POINT OF CARE (10/21/2022 4:58 AM CDT) Glucose WB/POC 166(H) 70 - 115 mg/dL 10/21/2022 5:02 AM CDT [facility] Specimen Type Cap Fingerstick 2022 5:02 AM CDT [facility] Blood BLOOD SPECIMEN / Unknown 10/21/2022 4:58 AM CDT 10/21/2022 5:02 AM CDT Emir Vail MD LAB - POINT OF CARE ORDERABLES Performing Organization Address [facility]/ZIP Co de Phone Number [address] [address], [place] [phone] * (ABNORMAL) GLUCOSE - POINT OF CARE (10/21/2022 1:21 AM CDT) Glucose WB/POC 164(H) 70 - 115 mg/dL 10/21/2022 1:25 AM [facility] Specimen Type Cap Fingerstick 2022 1:25 AM [facility] Blood BLOOD SPECIMEN / Unknown 10/21/2022 1:21 AM CDT 10/21/2022 1:25 AM CDT Emir Vail MD LAB - POINT OF CARE ORDERABLES [facility] [address] [place] [address], [facility] [phone] * (ABNORMAL) BLOOD GASES ART + COOX PANEL (10/20/2022 10:46 PM CDT) pH Arterial 7.36 7.35 - 7.45 pH 10/20/2022 10:53 PM [facility] pO2 Arterial 179(H) 80 - 100 mmHg 10/20/2022 10:53 PM [facility] pCO2 Arterial 32(L) 35 - 45 mmHg 10:53 PM [facility] HCO3 Arterial 18.1(L) 20.0 - 30.0 mmol/L 10/20/2022 10:53 PM [facility] BE Arterial -6.5(L) -2.0 - 2.0 mmol/L 10/20/2022 10:53 PM [facility] Oxyhemoglobin Arterial 97.5 % 10/20/2022 10:53 PM [facility] Dexoyhemoglobin (HHB) % <1.0 % 10/20/2022 10:53 PM [facility] Methemoglobin 0.8 0.0 - 2.0 % 10/20/2022 10:53 PM [facility] Carboxyhemoglobin 1.0 0.0 - 2.0 % 2022 10:53 PM [facility] O2 Content Arterial 14.1 Interpret within clinical context ml/dL 10/20/2022 10:53 PM [facility] Hemoglobin by COOX 10.0(L) 12.0 - 15.6 g/dL 10/20/2022 10:53 PM CDT [facility] O2 Saturation Arterial 99 90 - 100 % 10/20/2022 10:53 PM CDT [facility] FI O2 Arterial 40.0 % 10/20/2022 10:53 PM CDT [facility] Blood, arterial ARTERIAL BLOOD SPECIMEN / Unknown Arterial Puncture / Unknown 10/20/2022 10:46 PM CDT 10/20/2022 10:51 PM CDT Narrative [facility] - 10/20/2022 10:53 PM CDT Carboxyhemoglobin Normal Concentration: Non-smokers: 0-2%; Smokers: 0-9%; Toxic: >20% Emir Vail MD LAB - BLOOD GASES OR DERABLES [facility] [address] [place] [address], [facility] [phone] * CT HEAD WO CONTRAST (10/20/2022 9:13 [...] prior. > Dictated by Bassam Jovel M.D. (vice president sales) I, Gonzalez Velasco MD have personally reviewed and interpreted this examination/study. > Interpreting Provider: Gonzalez Velasoc MD on 10/20/2022 11:06 PM Narrative 10/20/2022 11:06 PM CDT DATE/TIME OF EXAM: ??10/20/2022 9:13 PM, LOCATION ??[facility] INDICATION: I63.411: Acute cerebrovascular accident (CVA) due to embolism of right middle cerebral artery (CMS/HCC) ADDITIONAL CLINICAL INFORMATION: Ordering Provider Reason For Exam: ??[facility] COMPARISON: Multiple prior studies, most recently [...] effacement of the right lateral ventricle, and yospr-xa-derm midline shift measuring up to 4 mm [...] DATE/TIME OF EXAM: 10/20/2022 9:13 PM, LOCATION [facility] INDICATION: I63.411: 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 > Dictated by Bassam Jovel M.D. (vice president sales) I, Gonzalez Velasco MD have personally reviewed and interpreted this examination/study. > Interpreting Provider: Goznalez Velasco MD on 10/20/2022 11:06 PM Emir Vail MD CT ORDERABLES * (ABNORMAL) BLOOD GAS+COOX+LYTES+METAB ARTERIAL POCT (10/20/2022 7:36 PM CDT) pH Arterial 7.36 7.35 - 7.45 pH 10/20/2022 7:36 PM [facility] pO2 Arterial 180(H) 80 - 100 mmHg 10/20/2022 7:36 PM [facility] pCO2 Arterial 36 35 - 45 mmHg 7:36 PM [facility] HCO3 Arterial 20.3 20.0 - 30.0 mmol/L 10/20/2022 7:36 PM [facility] BE Arterial -4.6(L) -2.0 - 2.0 mmol/L 10/20/2022 7:36 PM [facility] Oxyhemoglobin Arterial 97.1 % 10/20/2022 7:36 PM [facility] Dexoyhemoglobin (HHB) % 1.1 % 10/20/2022 7:36 PM [facility] Methemoglobin 0.8 0.0 - 2.0 % 10/20/2022 7:36 PM [facility] Carboxyhemoglobin 1.0 0.0 - 2.0 % 2022 7:36 PM [facility] Comment:Carboxyhemoglobin No rmal Concentration: Non-smokers: 0-2%; Smokers: 0- 9%; Toxic: >20% O2 Content Arterial 13.4 Interpret within clinical context ml/dL 10/20/2022 7:36 PM [facility] Hemoglobin by COOX 9.5(L) 12.0 - 15.6 g/dL 10/20/2022 7:36 PM T [facility] O2 Saturation Arterial 99 90 - 100 % 10/20/2022 7:36 PM T [facility] Sodium Whole Blood 143 135 - 145 mmol/L 10/20/2022 7:36 PM T [facility] Potassium Whole Blood 3.6 3.5 - 5.5 mmol/L 10/20/2022 7:36 PM T [facility] Chloride WB 116(H) 78 - 107 mmol/L 10/20/2022 7:36 PM T [facility] Calcium Ionized 1.03 mmol/L 7:36 PM T [facility] Ionized Calcium pH Adjusted 1.01(L) 1.19 - 1.34 mmol/L 10/20/2022 7:36 PM [facility] Anion Gap (AG) Arterial 10 8 - 18 mmol/L 10/20/2022 7:36 PM [facility] Glucose WB 155(H) 70 - 115 mg/dL 10/20/2022 7:36 PM T [facility] Lactic Acid Whole Blood 1.6 <=2.0 mmol/L 10/20/2022 7:36 PM T [facility] Blood, arterial ARTERIAL BLOOD SPECIMEN / Unknown 10/20/2022 7:36 PM CDT 10/20/2022 7:36 PM CDT Emir Vail MD LAB - POINT OF CARE ORDERABLES [address] [address], [facility] [phone] * BLOOD GAS ART+LYTES+METAB+COOX POC NOTIF (10/20/2022 7:27 PM CDT) Comment Notification Label Only - See Separate Report 10/20/2022 9:00 PM CDT [facility] Other MISCELLANEOUS SAMPLES / Unknown 10/20/2022 7:27 PM CDT 10/20/2022 7:32 PM CDT Lianet Diaz MD LAB - BLOOD GASES OR DERABLES [address] [address], [facility] [phone] * HGB HCT PANEL (10/20/2022 4:40 PM CDT) Hemoglobin 12.0 12.0 - 15.6 g/dL 10/20/2022 5:01 PM CDT [facility] Hematocrit 36.6 35.0 - 45.0 % 10/20/2022 5:01 PM CDT [facility] Blood BLOOD SPECIMEN / Unknown Venipuncture / Unknown 10/20/2022 4:40 PM CDT 10/20/2022 4:56 PM CDT Good Antunez MD LAB - HEMATOLOGY ORD ERABLES Performing Organization Address City/[facility]/ZIP Co de Phone Number [address] [address], [facility] [phone] * ECHO COMPLETE W BUBBLE STUDY (10/20/2022 4:05 PM CDT) BSA [id number] m2 [facility] CV FUJ I PACS LV [...] PACS LVOT area 3.46 cm2 [facility] CV FUJ I PACS LV RWT 0.65 [facility] CV FUJ I PACS LV Mahmood A2C 6.823 cm S[facility] CV F UJI PACS LV Mahmood A4C 7.092 cm SSM CV F UJI PACS IVS/LVPW 0.771 [facility] CV [facility] I PACS LV mass 2D 86.6232 [...] HR 154 [facility] CV FUJ I PACS [id number] 6.054 cm SSM CV FUJ I PACS [id number] 5.318 cm SSM CV FUJ I PACS [...] Report dictated by Royer Stovall MD (residential installer). IAmanda MD have personally reviewed and interpreted [...] Report dictated by Royer Stovall MD (residential installer). I, Amanda Prieto MD have personally reviewed and interpreted this examination/study. > Interpreting Provider: Amanda Prieto MD on 10/20/2022 3:31 PM Good Antunez MD DIAGNOSTIC IMAGING O RDERABLES * (ABNORMAL) GLUCOSE - POINT OF CARE (10/20/2022 11:32 AM CDT) Glucose WB/POC 124(H) 70 - 115 mg/dL 10/20/2022 11:42 AM CDT [facility] Specimen Type Cap Fingerstick 2022 11:42 AM CDT [facility] Blood BLOOD SPECIMEN / Unknown 10/20/2022 11:32 AM CDT 10/20/2022 11:42 AM CDT Good Antunez MD LAB - POINT OF CARE ORDERABLES [facility] [address] [place] [address], [facility] [phone] * (ABNORMAL) HEMOGLOBIN A1C (10/20/2022 10:15 AM CDT) Hemoglobin A1c 6.0(H) <=5.6 % 10/20/2022 2:15 PM CDT [facility] Estimated Average Glucose 126 mg/dL 10/20/2022 2:15 PM CDT [facility] Comment: HbA1c Interpretation: Normal : < 5.7% Pre-diabetes: 5.7-6.4% Diabetes: Equal to or greater than 6.5% Test results diagnostic of diabetes should be repeated for confirmation. Treatment target values recommended by ADA and other clinical organizations should be used to evaluate metabolic control in patients. Reference: [place] [employer], Standards of Care in Diabetes [...] MD LAB - CHEMISTRY BIBIANA BLACKMAN [facility] Organization Address City/State/ZIP Co de Phone Number [address] [address], [facility] [phone] * CT HEAD NON CONTRAST (10/20/2022 8:17 [...] - 115 mg/dL 10/20/2022 7:54 AM CDT [facility] Specimen Type Cap Fingerstick 2022 7:54 AM CDT [facility] Blood BLOOD SPECIMEN / Unknown 10/20/2022 7:47 AM CDT 10/20/2022 7:54 AM CDT Good Antunez MD LAB - POINT OF CARE ORDERABLES Performing Organization Address City/[facility]/ZIP Co de Phone Number [address] [address], [facility] [phone] * (ABNORMAL) GLUCOSE - POINT OF CARE (10/20/2022 7:44 AM CDT) Glucose WB/POC 32(LL) 70 - 115 mg/dL 10/20/2022 7:54 AM CDT [facility] Specimen Type Cap Fingerstick 2022 7:54 AM CDT [facility] Blood BLOOD SPECIMEN / Unknown 10/20/2022 7:44 AM CDT 10/20/2022 7:54 AM CDT Good Antunez MD LAB - POINT OF CARE ORDERABLES [address] [address], [facility] [phone] * BLOOD TYPE VERIFICATION (10/20/2022 4:00 AM CDT) ABO Rh B POS 10/20/2022 4:3 7 AM CDT [facility] BLOOD BANK LAB Blood Bank BLOOD SPECIMEN / Unknown Venipuncture / Unknown 10/20/2022 4:00 AM CDT 10/20/2022 4:07 AM CDT Tim Callahan MD LAB - BLOOD BANK ORD ERABLES [facility] B[facility] LAB [address] [place] [address], [facility] [phone] * (ABNORMAL) CBC W/O DIFFERENTIAL (10/20/2022 3:02 AM CDT) WBC 19.5(H) 3.5 - 10.5 10? 3 /uL 10/20/2022 3:30 AM [facility] RBC 3.83 3.80 - 5.20 10? 6 /uL 10/20/2022 3:30 AM [facility] Hemoglobin 11.9(L) 12.0 - 15.6 g/dL 10/20/2022 3:30 AM [facility] Hematocrit 35.4 35.0 - 45.0 % 10/20/2022 3:30 AM [facility] MCV 92.4 80.7 - 98.3 fL 10/20/2022 3:30 AM [facility] MCH 31.1 26.7 - 34.0 pg 10/20/2022 3:30 AM [facility] MCHC 33.6 30.8 - 35.9 g/dL 10/20/2022 3:30 AM [facility] RDW-SD 45.7 36.0 - 50.0 fL 10/20/2022 3:30 AM [facility] RDW-CV 13.5 11.2 - 14.8 % 10/20/2022 3:30 AM [facility] Platelet Count 292 150 - 400 10? 3 /uL 10/20/2022 3:30 AM [facility] MPV 9.9 9.4 - 12.9 fL 10/20/2022 3:30 AM [facility] nRBC Absolute 0.00 0 10? 3 /uL 10/20/2022 3:30 AM [facility] nRBC Auto 0.0 0 /100 WBC 10/20/2022 3:30 AM [facility] Blood BLOOD SPECIMEN / Unknown Venipuncture / Unknown 10/20/2022 3:02 AM CDT 10/20/2022 3:09 AM T Jim Walter MD LAB - HEMATOLOGY OR DERABLES [address] [address], [facility] [phone] * (ABNORMAL) BASIC METABOLIC PANEL (CALCIUM TOTAL) (10/20/2022 3:02 AM T) BUN 6(L) 7 - 26 mg/dL 10/20/2022 3:36 AM [facility] Creatinine 0.50(L) 0.56 - 0.96 mg/dL 10/20/2022 3:36 AM [facility] Sodium 138 136 - 145 mmol/L 10/20/2022 3:36 AM [facility] Potassium 3.6 3.5 - 4.5 mmol/L 10/20/2022 3:36 AM [facility] Chloride 108(H) 98 - 107 mmol/L 10/20/2022 3:36 AM [facility] CO2 21(L) 22 - 29 mmol/L 10/20/2022 3:36 AM [facility] Glucose 140(H) 70 - 115 mg/dL 10/20/2022 3:36 AM [facility] Calcium 8.2(L) 8.4 - 10.2 mg/dL 10/20/2022 3:36 AM [facility] Anion Gap 13 8 - 18 10/20/2022 3:36 AM [facility] BUN/Creatinine Ratio 12 7 - 23 10/20/2022 3:36 AM [facility] Osmolality Calculated 286 270 - 300 mOsm/kg 10/20/2022 3:36 AM [facility] eGFR by CKD-EPI >90 >=90 mL/min/1.7 3 m2 10/20/2022 3:36 AM [facility] Blood BLOOD SPECIMEN / Unknown Venipuncture / Unknown 10/20/2022 3:02 AM CDT 10/20/2022 3:09 AM CDT Jim Walter MD LAB - CHEMISTRY ORD ERABLES [facility] [address] [place] [address], [facility] [phone] * LUPUS ANTICOAGULANT PANEL (10/20/2022 3:02 AM T) APTT 24.4 23.0 - 38.4 Seconds 10/20/2022 11:35 AM [facility] PT 13.6 12.1 - 14.8 Seconds 10/20/2022 11:35 AM [facility] INR 1.1 See Comment 10/20/2022 11:35 AM [facility] STAC[place] Buffer 37.8 Seconds 023 11:35 AM [facility] [place] Phospholipid 33.2 Seconds 10/20/2022 11:35 AM [facility] [place] Delta 4.6 <8.0 Seconds 10/20/2022 11:35 AM [facility] Interpretation ST[place] Negative 10/20/2022 11:35 AM [facility] Comment:Up to 15-20% of douglas ents [...] Antunez MD LAB - HEMATOLOGY ORD ERABLES [facility] [address] [id number], [facility] [phone] * (ABNORMAL) PROTEIN S ACTIVITY (10/20/2022 3:02 AM CDT) Protein S Activity 134(H) 57 - 131 % 10/21/2022 10:09 PM CDT [facility] ([facility]) Comment: INTERPRETIVE INFORMATION: Protein S, Functional [...] reference intervals for this test in the [facility] Test Directory (Exepron). Performed By: [facility] [address] [place] [address] [employer] Supervisor: Boo Bond MD, PhD CLIA Number: [id number] Blood BLOOD SPECIMEN / Unknown Venipuncture / Unknown 10/20/2022 3:02 AM CDT 10/20/2022 3:09 AM CDT Good Antunez MD LAB - COAGULATION OR DERABLES [facility] ([facility]) [address] * PROTEIN C ACTIVITY (10/20/2022 3:02 AM CDT) Protein C Activity 150 83 - 168 % 10/21/2022 9:44 PM CDT [facility] ([facility]) Comment: INTERPRETIVE INFORMATION: Protein C, Functional [...] reference intervals for this test in the [facility] Laboratory Test Directory (Exepron). Performed By: [facility] [address] [id number] [employer] Supervisor: Boo Bond MD, PhD CLIA Number: [id number] Blood BLOOD SPECIMEN / Unknown Venipuncture / Unknown 10/20/2022 3:02 AM CDT 10/20/2022 3:09 AM CDT Good Antunez MD LAB - COAGULATION OR DERABLES [facility] ([facility]) [address] [place] [address], [facility] * (ABNORMAL) LIPID PROFILE (10/20/2022 3:02 AM CDT) [facility] Signature Cholesterol Total 173 <200 mg/dL 10/20/2022 3:34 AM T [facility] HDL 42 >40 mg/dL 10/20/2022 3:34 AM [facility] Comment: ATP III Classification of HDL Cholesterol: ? <40 mg/dL: ??Considered a major risk factor. ? >60 mg/dL: ??Considered a negative risk factor. ? LDL Calculated 91 <100 mg/dL 10/20/2022 3:34 AM [facility] Comment: ATP III Classification of LDL Cholesterol: ?<100 mg/dL: ??Optimal ? 100 - 129 mg/dL: ??Near Optimal/Above Optimal ? 130 - 159 mg/dL: ??Borderline High ? 160 - 189 mg/dL: ??High ?>190 mg/dL: ??Very High ? Triglycerides 201(H) <150 mg/dL 10/20/2022 3:34 AM [facility] Comment: ATP III Classification of Triglycerides: ?<150 mg/dL: ??Normal ? 150 - 199 mg/dL: ??Borderline High ? 200 - 400 mg/dL: ??High ?>500 mg/dL: ??Very High Blood BLOOD SPECIMEN / Unknown Venipuncture / Unknown 10/20/2022 3:02 AM CDT 10/20/2022 3:09 AM CDT Jim Walter MD LAB - CHEMISTRY ORD ERABLES Performing Organization Address City/[facility]/ZIP Co de Phone Number [address] [address], [place] [phone] * (ABNORMAL) GLUCOSE - POINT OF CARE (10/19/2022 7:50 PM CDT) Glucose WB/POC 140(H) 70 - 115 mg/dL 10/19/2022 7:50 PM CDT [facility] Specimen Type Cap Fingerstick 2022 7:50 PM CDT [facility] Blood BLOOD SPECIMEN / Unknown 10/19/2022 7:50 PM CDT 10/19/2022 7:50 PM CDT Good Antunez MD LAB - POINT OF CARE ORDERABLES Performing Organization Address [facility] Co de Phone Number [address] [address], [place] [phone] * URINE DRUG SCREEN IMMUNOASSAY (10/19/2022 2:10 PM CDT) Amphetamines Screen Urine Negative Negative: < 1000 ng/mL 10/19/2022 2:48 PM CDT [facility] Barbiturates Screen Urine Negative Negative: < 200 ng/mL 10/19/2022 2:48 PM CDT [facility] Benzodiazepine Screen Urine Negative Negative: < 200 ng/mL 10/19/2022 2:48 PM CDT [facility] Opiates Urine Negative Negative: < 300 ng/mL 10/19/2022 2:48 PM CDT [facility] Cocaine Metabolites Urine Negative Negative: < 300 ng/mL 10/19/2022 2:48 PM CDT [facility] Phencyclidine Screen Urine Negative Negative: < 25 ng/ml 10/19/2022 2:48 PM CDT [facility] Cannabinoids Screen Urine Negative Negative: <50 ng/mL 10/19/2022 2:48 PM CDT [facility] Methadone Screen Urine Negative Negative: < 300 ng/mL 10/19/2022 2:48 PM T [facility] Fentanyl Screen Urine Negative Negative: <1.5 ng/mL 10/19/2022 2:48 PM CDT [facility] Urine URINE / Unknown Collection / Unknown 10/19/2022 2:10 PM CDT 10/19/2022 2:15 PM CDT Narrative [facility] - 10/19/2022 2:48 PM CDT The Urine Toxicology Screening Panel does not screen for Propoxyphene, Meprobamate, Carisoprodol, Trazodone, uiee-eyn-npofmpf medications and/or volatiles (Acetone, Isopropanol, Methanol or Ethylene Glycol). Ethanol, Salicylate, Acetaminophen, Tricyclic Antidepressants and several therapeutic drugs may be individually assayed in serum or plasma specimen. Toxicology testing by the [facility] Laboratory is an aid to medical diagnosis and treatment of patients. No documented chain of custody was maintained. Results are intended to be used for clinical purposes only. ? Godo Antunez MD LAB - URINE CHEMISTR Y ORDERABLES [facility] [address] [place] [address], [facility] [phone] * HCG URINE QUALITATIVE (10/19/2022 2:10 PM CDT) Test Urine Negative Negative 10/19/2022 2:29 PM CDT [facility] Urine URINE / Unknown Collection / Unknown 10/19/2022 2:10 PM CDT 10/19/2022 2:15 PM CDT Tim Callahan MD LAB - URINALYSIS ORD ERABLES Performing Organization Address [facility] Co de Phone Number [address] [address], [facility] [phone] * IR INTRACRANIAL [facility] THROMBECT (10/19/2022 10:41 AM CDT) Anatomical Region [...] 11/07/2022 9:21 AM CDT PROCEDURE: ??IR INTRACRANIAL [facility] THROMBECT DATE/TIME OF EXAM: ??10/19/2022 10:41 AM [...] Time to Reperfusion: 9:54 Final TICI: 2b Administrative Fellow: Dr. Mitali Walter Supervisor Paper Products(s): Isak Monte Vessels: Ultrasound Guided Access of Femoral Artery Ultrasound Guided Access of Radial Artery Arterial line placement in the right radial artery Right Common Carotid Artery Angiogram: Cerebral Intracranial Catheterization Mechanical Thrombectomy with Retrievable Stent and Reperfusion Catheter Angiography Through the Existing Catheter Right Femoral Artery Angiogram Anesthesia: General Anesthesia was performed and monitored by an attending Anesthesiologist and their executive chef assistant throughout the entirety of the case [...] artery demonstrated a patent vessel. A 5 vatican citizen sheath was placed in the radial artery [...] Following a series of exchanges, a 8 Turkmen sheath sheath was placed in the right femoral artery. A Guide and a 6 Turkmen Penumbra Select Serrano 2 catheter along with [...] system. Hemostasis was achieved using a 8 Turkmen Angio-Seal closure device. Hemostasis was immediate at [...] Walter MD - 11/07/2022 PROCEDURE: IR INTRACRANIAL [facility] THROMBECT DATE/TIME OF EXAM: 10/19/2022 10:41 AM [...] Time to Reperfusion: 9:54 Final TICI: 2b Administrative Fellow: Dr. Mitali Walter Supervisor Paper Products(s): Isak Monte Vessels: Ultrasound Guided Access of Femoral Artery Ultrasound Guided Access of Radial Artery Arterial line placement in the right radial artery Right Common Carotid Artery Angiogram: Cerebral Intracranial Catheterization Mechanical Thrombectomy with Retrievable Stent and Reperfusion Catheter Angiography Through the Existing Catheter Right Femoral Artery Angiogram Anesthesia: General Anesthesia was performed and monitored by an attending Anesthesiologist and their executive chef assistant throughout the entirety of the case [...] artery demonstrated a patent vessel. A 5 vatican citizen sheath was placedin the radial artery and was used as an arterial line. Limited ultrasoundof the common femoral artery demonstrated a patent vessel. The take off ofthe profunda and other arteries were identified. A scott scale image was documented. The right common femoral artery was accessed using a micropuncture needle. The needle entry was documented. Following aseries of exchanges, a 8 Turkmen sheath sheath was placed in the right femoral artery. A Guide and a 6 Turkmen Hojoki Select Serrano 2 catheter along with a [...] arterial system.Hemostasis was achieved using a 8 Turkmen Angio-Seal closure device. Hemostasis was immediate at [...] CDT) Antibody Screen NEG 9:34 AM CDT [facility] BLOOD BANK LAB ABO Rh B POS 10/19/2022 9:34 AM CDT [facility] LAB Blood Bank BLOOD SPECIMEN / Unknown Venipuncture / Unknown 10/19/2022 8:24 AM CDT 10/19/2022 8:44 AM CDT Tim Callahan MD LAB - BLOOD BANK ORD ERABLES Performing Organization Address City/State/[facility] Co de Phone Number [facility] BLOOD B[facility] LAB [address] [place] [address], [facility] [phone] * PT-INR [facility] (10/19/2022 8:24 AM CDT) PT 12.3 12.1 - 14.8 Seconds 10/19/2022 9:04 AM CDT [facility] INR 0.9 See Comment 10/19/2022 9:04 AM CDT [facility] Comment:The suggested therap eutic [...] OR DERABLES Performing Organization Address [facility]/State/[facility] Co de Phone Number [facility] [address] [place] [address], [facility] [phone] * (ABNORMAL) COMPREHENSIVE METABOLIC PANEL (10/19/2022 8:24 AM CDT) BUN 13 7 - 26 mg/dL 10/19/2022 8:57 AM [facility] Creatinine 0.84 0.56 - 0.96 mg/dL 10/19/2022 8:57 AM [facility] Sodium 139 136 - 145 mmol/L 10/19/2022 8:57 AM [facility] Potassium 4.2 3.5 - 4.5 mmol/L 10/19/2022 8:57 AM [facility] Chloride 108(H) 98 - 107 mmol/L 10/19/2022 8:57 AM [facility] CO2 21(L) 22 - 29 mmol/L 10/19/2022 8:57 AM [facility] Glucose 109 70 - 115 mg/dL 10/19/2022 8:57 AM [facility] Calcium 8.9 8.4 - 10.2 mg/dL 10/19/2022 8:57 AM [facility] Protein Total 7.7 6.0 - 8.3 g/dL 10/19/2022 8:57 AM [facility] Albumin 3.5 3.4 - 5.0 g/dL 10/19/2022 8:57 AM [facility] Bilirubin Total 0.1(L) 0.2 - 1.2 mg/dL 10/19/2022 8:57 AM [facility] Alkaline Phosphatase 52 40 - 150 U/L 10/19/2022 8:57 AM [facility] ALT 16 5 - 55 U/L 10/19/2022 8:57 AM [facility] AST 19 5 - 34 U/L 10/19/2022 8:57 AM [facility] Anion Gap 14 8 - 18 10/19/2022 8:57 AM [facility] BUN/Creatinine Ratio 15 7 - 23 10/19/2022 8:57 AM [facility] Osmolality Calculated 289 270 - 300 mOsm/kg 10/19/2022 8:57 AM [facility] Albumin/Globulin Ratio 0.8(L) 1.1 - 2.3 10/19/2022 8:57 AM [facility] eGFR by CKD-EPI >90 >=90 mL/min/1.7 3 m2 10/19/2022 8:57 AM [facility] Blood BLOOD SPECIMEN / Unknown Venipuncture / Unknown 10/19/2022 8:24 AM CDT 10/19/2022 8:31 AM CDT Tim Callahan MD LAB - CHEMISTRY ORDE [facility] Organization Address City/State/ZIP Co de Phone Number [facility] [address] [place] [id number] [phone] * (ABNORMAL) CBC W AUTO DIFFERENTIAL (10/19/2022 8:24 AM CDT) WBC 10.9(H) 3.5 - 10.5 10? 3 /uL 10/19/2022 8:39 AM [facility] RBC 4.73 3.80 - 5.20 10? 6 /uL 10/19/2022 8:39 AM [facility] Hemoglobin 14.4 12.0 - 15.6 g/dL 10/19/2022 8:39 AM [facility] Hematocrit 42.6 35.0 - 45.0 % 10/19/2022 8:39 AM [facility] MCV 90.1 80.7 - 98.3 fL 10/19/2022 8:39 AM [facility] MCH 30.4 26.7 - 34.0 pg 10/19/2022 8:39 AM [facility] MCHC 33.8 30.8 - 35.9 g/dL 10/19/2022 8:39 AM [facility] RDW-SD 43.4 36.0 - 50.0 fL 10/19/2022 8:39 AM [facility] RDW-CV 13.1 11.2 - 14.8 % 10/19/2022 8:39 AM [facility] Platelet Count 342 150 - 400 10? 3 /uL 10/19/2022 8:39 AM [facility] MPV 10.4 9.4 - 12.9 fL 10/19/2022 8:39 AM [facility] nRBC Absolute 0.00 0 10? 3 /uL 10/19/2022 8:39 AM [facility] nRBC Auto 0.0 0 /100 WBC 10/19/2022 8:39 AM [facility] Neutrophils % 67.3 35.0 - 70.0 % 10/19/2022 8:39 AM [facility] Lymphocytes % 23.9 20.0 - 43.0 % 10/19/2022 8:39 AM [facility] Monocytes % 6.4 5.0 - 13.0 % 10/19/2022 8:39 AM [facility] Eosinophils % 1.4 0.0 - 6.0 % 10/19/2022 8:39 AM [facility] Basophil % 0.6 0.0 - 2.0 % 10/19/2022 8:39 AM [facility] Neutrophils Absolute 7.33(H) 1.60 - 7.00 10? 3 /uL 10/19/2022 8:39 AM [facility] Lymphocyte Absolute 2.61 1.10 - 3.90 10? 3 /uL 10/19/2022 8:39 AM [facility] Monocytes Absolute 0.70 0.26 - 1.07 10? 3 /uL 10/19/2022 8:39 AM [facility] Eosinophils Absolute 0.15 0.00 - 0.47 10? 3 /uL 10/19/2022 8:39 AM [facility] Basophils Absolute 0.07 0.00 - 0.08 10? 3 /uL 10/19/2022 8:39 AM [facility] Immature Granulocytes % 0.4 0.0 - 1.0 % 10/19/2022 8:39 AM CDT [facility] Immature Granulocytes Absolute 0.04 10/19/2022 8:39 AM CDT [facility] Blood BLOOD SPECIMEN / Unknown Venipuncture / Unknown 10/19/2022 8:24 AM CDT 10/19/2022 8:31 AM CDT Tim Callahan MD LAB - HEMATOLOGY ORD ERABLES [facility] [address] [place] [address], [facility] [phone] * EKG 12-LEAD (10/19/2022 8:22 AM CDT) Ventricular Rate 129 BPM [facility] MUSE Atrial Rate 129 BPM [facility] MUSE P-R Interval 134 ms [facility] MUSE QRS Duration ms 90 ms [facility] MUSE Q-T Interval ms 318 ms [facility] MUSE QTC Calculation (Bezet) 465 ms [facility] MUSE Calculated P Robards 55 degrees SL MUSE Calculated R Robards 13 degrees [facility] MUSE Calculated T Robards 5 degrees [facility] MUSE Interpretation EKG SINUS TACHYCARDIA OTHERWISE NORMAL ECG NO PREVIOUS ECGS AVAILABLE Confirmed by NAMRATA WORRELL [facility] ([id number]) on 10/19/2022 5:38:23 PM [facility] MUSE 10/19/2022 8:22 AM CDT 10/19/2022 5:38 PM CDT Tim Callahan MD ECG ORDERABLES Performing Organization Address [facility]/ZIP Co de Phone Number [facility] MUSE * CT ANGIO BRAIN NECK [...] DATE/TIME OF EXAM: ??10/19/2022 8:16 AM, LOCATION ??[facility] INDICATION: Code Stroke ADDITIONAL CLINICAL INFORMATION: [...] STROKE, DATE/TIME OF EXAM: 38:16 AM, LOCATION [facility] INDICATION: Code Stroke ADDITIONAL CLINICAL INFORMATION: [...] 0.9 - 1.2 10/19/2022 8:18 AM CDT [facility] Device [id number] 10/19/2022 8:18 AM CDT [facility] Administrative Fellow ID [id number] 10/19/2022 8:18 AM CDT [facility] Blood BLOOD SPECIMEN / Unknown 10/19/2022 8:09 AM CDT 10/19/2022 8:18 AM CDT Provider Unknown LAB - POINT OF CARE ORDERABLES [address] [address], [facility] [phone] * CREATININE - POCT INTERFACED (10/19/2022 8:08 AM CDT) Creatinine POCT 0.78 0.30 - 1.30 mg/dL 10/19/2022 8:18 AM CDT [facility] eGFR >90 >90 mL/min/1.7 3 m2 10/19/2022 8:18 AM CDT [facility] Blood BLOOD SPECIMEN / Unknown 10/19/2022 8:08 AM CDT 10/19/2022 8:18 AM CDT Provider Unknown LAB - POINT OF CARE ORDERABLES [address] [address], [place] [phone] * CT BRAIN - Stroke (10/19/2022 8:03 [...] DATE/TIME OF EXAM: ??10/19/2022 8:04 AM, LOCATION ??[facility] INDICATION: Code Stroke ADDITIONAL CLINICAL INFORMATION: [...] DATE/TIME OF EXAM: 10/19/2022 8:04 AM, LOCATION [facility] INDICATION: Code Stroke ADDITIONAL CLINICAL INFORMATION: [...] - 115 mg/dL 10/19/2022 8:01 AM CDT [facility] Specimen Type Cap Fingerstick 2022 8:01 AM CDT [facility] Blood BLOOD SPECIMEN / Unknown 10/19/2022 7:56 AM CDT 10/19/2022 8:01 AM CDT Provider Unknown LAB - POINT OF CARE ORDERABLES [facility] [address] [place] [address], [facility] [phone] documented in this encounter Visit Diagnoses Diagnosis [...] hypertension GERD (gastroesophageal reflux disease) Esophageal reflux Ischemia Unspecified circulatory system disorder Iliac artery occlusion, right (HCC) Embolism and [...] therapy: Blood, Urine/Genitourinary, Upper Respiratory, Lower Respiratory, IDENTIFICATION CLERK $ Given 11/17/2022 9:10 AM CDT 100 [...] PM CDT 10 mL G Tube heparin (Dialysis/OR: Not for IV Use, No Dual Sign Off) 2,000 Units in 0.9% NaCl IV 1,000 mL irrigation PRN, Starting on Sun10/30/22 at 1115, Until Sun10/30/22 at 1433, Intra-op $ Given 10/30/2022 11:15 AM CDT 2,000 Units Operative Site iodixanol (Visipaque 320) injection PRN, Starting on Sun10/30/22 at 1330, Until Sun10/30/22 at 1433, Intra-op $ Given 10/30/2022 1:30 PM CDT 30 mL Operative Site iopamidol (Isovue 370) 76 % contrast Intravenous, CONTRAST ONCE, Starting on Sun11/16/22 at 1624, Until Sun11/17/22 at 1626 $ [...] HOURS, First dose (after last modification) on 10/23/22 at 0900, Until Discontinued, Please hold for [...] AMBROSE) 0534 ($ Given - Provider: Carrillo Avilez RN)1330 (Not Administered - Provider: Chin Cabello RN - Reason: IV Currently Infusing) 0.9% NaCl IV bolus (COMPLETED) 500 mL, at 491.8 mL/hr, Administer over 61 Minutes, ONCE, 1 dose, On Sun11/15/22 at 0830 1001 ($ New Bag/Syringe - Provider: Radha Covarrubias RN)1454 (Stopped - Provider: Radha Covarrubias RN) doxycycline [...] therapy: Blood, Urine/Genitourinary, Upper Respiratory, Lower Respiratory, IDENTIFICATION CLERK 0920 ($ Given - Provider: Radha Covarrubias RN)2129 ($ Given - Provider: Shruti Samuel RN) 1004 ($ Given - Provider: Tasha Clay, AMBROSE)214 ($ Given - Provider: Carrillo Avilez, AMBROSE) [...] dose on 10/23/22 at 0915, Until Discontinued 0920 ($ Given - Provider: Radha Covarrubias RN)2132 ($ Given - Provider: Shruti Samuel RN) 1207 ($ Given - Provider: Tasha Clay RN - Comment: AM dose given late)214 ($ Given - Provider: Carrillo Avilez RN) [...] 0556 ($ Given - Provider: Shruti Samuel, AMBROSE) 0534 ($ Given - Provider: Carrillo [...] ($ Given - Provider: Chin Cabello, AMBROSE) meropenem (Merrem) 2,000 mg in 0.9% NaCl [...] RN)1209 ($ New Bag/Syringe - Provider: Tasha Clay RN)1246 (Stopped - Provider: Tasha Clay RN)2146 ($ New Bag/Syringe - Provider: Carrillo Avilez RN)2226 (Stopped - Provider: Carrillo Avilez, AMBROSE) 0408 ($ New Bag/Syringe - Provider: Carrillo Avilez, AMBROSE)0443 (Stopped - Provider: Carrillo Avilez RN)1327 ($ New Bag/Syringe - Provider: Chin [...] RN) 1003 ($ Given - Provider: Tasha Clay RN)2148 ($ Given - Provider: Carrillo Avilez, AMBROSE) 0910 ($ Given - Provider: Chin Cabello, AMBROSE) perflutren lipid microsphere (Definity) injection 0.5 mL [...] ($ Given - Provider: Chin Cabello, AMBROSE) triamcinolone acetonide (Kenalog) 0.1 % ointment (CANCELED) [...] 0556 ($ Given - Provider: Shruti Samuel, AMBROSE)1512 ($ Given - Provider: Tasha Clay, AMBROSE)2155 [...] patient request must be documented in the MAY. 0622 ($ Given - Provider: Bess John, AMBROSE)1352 ($ Given - Provider: Radha Covarrubias RN) 1609 ($ Given - Provider: Tasha Clay, AMBROSE) 0534 ($ Given - Provider: Carrillo Avilez, AMBROSE) bisacodyl (Dulcolax) suppository 10 mg 10 mg, [...] patient request must be documented in the MAY. 0921 ($ Given - Provider: Radha Covarrubias RN) 0344 ($ Given - Provider: Shruti Samuel RN)1003 ($ Given - Provider: Tasha Clay, AMBROSE)1741 ($ Given - Provider: Tasha Clay, AMBROSE) polyethylene glycol 3350 (Miralax) packet 17 g [...] AND MAINTAIN (CANCELED) Routine, CONTINUOUS, Starting on Katy 10/19/22 at 0830, Until Specified, IN OPPOSITE ARM., New collection, Task Completed: Yes And 0.9% NaCl injection 3 mLJump to med 3 mL, Intracatheter, EVERY 8 HOURS, First dose on Katy 10/19/22 at 0900, Until Discontinued And 0.9% NaCl injection 3 mLJump to med 3 mL, Intracatheter, PRN, Other, peripheral line flush, Starting on Katy 10/19/22 at 0820, Until 11/17/22 at 1626, Flush after each use and blood draws. documented in this encounter Additional Health Concerns Infection Onset Date Last Indicated Resolved Time COVID-19 Under Investigation 11/05/2022 11/05/2022 11/05/2022 5:32 PM CDT documented as of this encounter Care Teams Pharmaceutical Development Technician Relationship Specialty Start Date End Date Jean Joy MD PCP - OBGYN 12/27/07 Yvan Booth MD [address] [place] [phone] PCP - General 11/04/09 01/04/23 Jaden Thakur DO [address] [place] [address] [phone] PCP - Attributed-[facility] [facility] STL 09/10/19 06/28/23 documented as of this encounter
--- OUTSIDE RECORDS SUMMARY | 2024-03-19 20:46 | XMS_ITS | Encounter Summary ---
Author Organization [facility] Address [address] [place] [address] Care Team Providers Care Reliability Technicians Name Role Phone Jean Jyo MD Unavailable [phone] Yvan Booth MD Primary Care Provider [phone] Jaden Thakur DO Unavailable [phone] Reason for Visit * Reason Comments Altered [...] Expiration Date Visits Re quested Visits Authorized [id number] 1 1 Encounter Details Date Type Department Care Team (Late st Contact Info) Description 10/20/2022 6:50 PM CDT - 10/20/2022 9:25 PM CDT Surgery [facility] [address] [place] [id number] Jazz Marquez MD [address] DIV [place] [address] RIGHT DECOMPRESSIVE HEMICRANIECTOMY, POSS ICP MONITOR, POSS EVD Surgery Details Date/Time Status Location OR Service Patient Class Case Class Case Type Trauma Case? 10/20/2022 6:50 PM Posted [facility] OR OR 15 Neurosurgery Inpatient Emergency < 2Hrs Panel 1 Procedure LRB Anes Op Region Wound Class Comments RIGHT DECOMPRESSIVE HEMICRANIECTOMY, POSS ICP MONITOR, POSS EVD Right General Clean Right decompression Craniectomy, Application of ICP monitor, Left LEONCIO drain Bone Flap placed in the freezer Surgeon Surgeon Role Service Panel Jazz Marquez MD Primary Neurosurgery 1 Kamari Mcfarlane MD Resident - Assisting Neurosurgery 1 Jarvis Gagnon MD Resident - Assisting Neurosu rgery 1 Special Needs SUPINE documented in this encounter Social History Tobacco [...] Date Recorded PHQ2 TOTAL SCORE 0 02/08/2022 [place] [facility] - Occupational Stress [...] Sign Reading Time Taken Comments Blood Pressure 109/64 10/20/2022 6:10 PM CDT Pulse 102 10/20/2022 9:25 PM CDT Temperature 37.3 ??C (99.1 ??F) 10/20/2022 9:25 PM CD T Respiratory Rate 18 10/20/2022 9:25 PM CDT Oxygen Saturation 100% 10/20/2022 9:25 PM CDT Inhaled Oxygen Concentration 40% 10/20/2022 9 :25 PM CDT Weight 95.3 kg (210 lb) [...] Physician Discharge Summary Patient ID: Consuelo Darby [id number] 42 year old 1980 Admit date: 10/19/2022 [...] Labs Lab Units 11/17/22 0202 11/16/22 0217 11/15/2221111/14/2223811/13/22 021 NA mmol/L 138 139 137 140 138 CL mmol/L 99 104 103 104 107 CO2 mmol/L 27 27 26 25 23 BUN mg/dL 14 13 12 11 11 CREATININE mg/dL 0.62 0.57 0.50* 0.51* 0.54* CALCIUM mg/dL 8.9 8.8 8.6 8.6 8.1* Magnesium: No results for input(s): MG in the last 168 hours. Phosphorus: Recent Labs Lab Units 11/17/2220111/16/2221611/15/2221111/14/2223811/13/22 021 PHOS mg/dL 3.6 3.5 3.0 3.5 3.9 Coagulation: Recent Labs Lab Units 11/17/2220111/16/2221611/15/2221111/14/2223811/13/22 021 PT Seconds 14.4 13.9 14.3 15.9* 17.7* [...] resolved. > Dictated by Abdifatah Jean MD (president mortgage company). Alexx Ornelas have personally reviewed and interpreted this examination/study. > Interpreting Provider: Alexx Lopez on 11/17/2022 11:31 AM FL LUMBAR PUNCTURE Result Date: 11/15/2022 IMPRESSION: 1.Successful lumbar puncture under fluoroscopic guidance at L3-L4. > Dictated by Royer Stovall MD (president mortgage company). Oriana Ornelas MD have personally reviewed and interpreted this examination/study. > Interpreting Provider: Oriana Suarez MD on 11/15/2022 2:16 PM US ABDOMEN LTD W COMP DOPPLER Result Date: 11/14/2022 IMPRESSION: 1.No discrete hepatic lesion or intrahepatic biliary ductal dilatation. 2.Patent hepatic vasculature. Borderline low velocity the main portal vein measuring 18 cm/s. 3.Status post cholecystectomy. > Dictated by Miranda Bowen MD (president mortgage company). > Dictated by Miranda Bowen (Advertising Sales Manager) 11/14/2022 9:18 AM HEATHER Ornelas MD have [...] as: Verelan Vitamin D3 (cholecalciferol) 50 MCG (1999) tablet ZYRTEC PO STOP taking these medications [...] MD . Specialty: Neurological Surgery Contact information: [facility] OF NEUROSURGERY [facility] [address] Contact information for after-discharge care Destination [facility] (ALL LOCATIONS) . Service: Inpatient Rehabilitation Contact information: [address] [place] [address] Discharge Instructions You have been scheduled with Dr. Walter for follow up in regards to your stroke and hospital stay.If the time and/or day of this appointment doesn't work for you, please call [phone] to make changes. Continue Doxycycline and Meropenem [...] incision after showering. Call our office at [phone] for: Chills/fever/Temp greater than 101 degrees If your incision has drainage, swelling, redness, or if it opens. If your foot becomes cold, painful, you have problems moving it, or it changes color After hours number is [phone] and ask for vascular surgery Follow up in clinic with Dr Clay in 4 weeks with vascular studies prior to appt; you will be contacted regarding this To make or change an appt call [phone] Urology Follow-up You have a follow up appointment with Dottie Monreal NP on SundayDecember 06 at 9:45am. Thisis at the [facility], located at [address] [place] [address]. The clinic number is [phone]. It is very important that you make [...] appointment doesn't work for you, please call [phone] to make changes. We may consider hypercoagulability [...] incision after showering. Call our office at [phone] for: Chills/fever/Temp greater than 101 degrees If your incision has drainage, swelling, redness, or if it opens. If your foot becomes cold, painful, you have problems moving it, or it changes color After hours number is [phone] and ask for vascular surgery Follow up in clinic with Dr Clay in 4 weeks with vascular studies prior to appt; you will be contacted regarding this To make or change an appt call [phone] Urology Follow-up You have a follow up appointment with Dottie Monreal NP on SundayDecember 06 at 9:45am. Thisis at the [place] [facility], located at [address], [place] [address]. The clinic number is [phone]. It is very important that you make [...] PM CDT Report given to Katelyn at [facility] rehab. * Anita Richards - 11/17/2022 12:50 PM CDT Facility Transfer Note Actual level of care at discharge: Acute Rehab Facility Discharge Facility Information: [facility] ([address] [place] [address]) [place] Made Aware of Special Needs (if applicable): JAMIE RN Call Report to: [phone] Fax D/C Orders to:[phone] Date/time of transfer: 11/17/2022 @ 2pm Trip# [id number] Transportation: [facility] [phone] Certificate of Medical Necessity rationale: Rt middle [...] contact #: Dr. Frias Completed and Signed PI267A (if applicable): JAMIE Family/Other Notified of Transfer (name/phone): Patient/spouse notified Authorization for Nursing Home Facility: ARU rec'd Authorization for Transportation: NA Verified Qualifying Stay(Skilled Only): NOT APPLICABLE Comments: SW faxed discharge to facility orders, after visit summary, and the MAR report to the accepting facility. Thank you, JAYLENE Holcomb, HUMERA [facility] 11/17/2022 12:50 PM * Elida Yancey RN - 11/17/2022 12:14 PM CDT [facility] Rehab has accepted this patient and she is in agreement to be transfered to acute rehab on the [facility] room 303. Patient and family updated at bedside. Room is ready. Accepting physician is Dr. Frias. May fax discharge orders to [phone]. May call report to [phone]. If needed, [employer] can be reached at [phone]. Thank you for the referral. Elida Yancey RN, BSN Clinical Liaison [facility] [phone] * Chin Cabello RN - 11/17/2022 11:06 [...] Rehab Facility: Anticipated level of care provider: [facility]: Anticipated Discharge Date: 11/17/22: Discharge Plan: [facility] Rehab [facility] pending bed availability. Orientation Level: Oriented to Person;Oriented to Place;Oriented to Situation: Family Support (Name and Phone): Extended Emergency Contact Information Primary Emergency Contact: Hi Darby Address: [address] [place] [address] [place] [address] [facility] Relation: Spouse Secondary Emergency Contact: Sandra Disla [facility] Mobile Relation: Mother Transportation at Discharge: Ambulance: [...] 1.1 Recent Labs Component Name 11/17/22 0202 11/16/2221611/15/22211 PTT 34.4 26.0 28.2 Recent Labs Component [...] 3.0 Recent Labs Component Name 11/17/22 0202 11/16/2221611/15/22 0212 10/23/22 0129 10/22/22 0153 WBC 9.4 [...] results for input(s): MG in the last 76236 hours. Recent Labs Component Name 11/16/2221611/15/222 11/14/22238 PHOS 3.5 3.0 3.5 Recent Labs Component Name 11/16/2221611/15/2221111/14/22238 PT 13.9 14.3 15.9* INR 1.1 1.1 1.3 PTT 26.0 28.2 45.9* No results for input(s): A1C in the last 70818 hours. Recent Labs Component Name 10/20/22 0302 [...] cholecystectomy. > Dictated by Miranda Bowen MD (president mortgage company). > Dictated by Miranda Bowen (Advertising Sales Manager) 11/14/2022 9:18 AM IHEATHER MD have personally reviewed and interpreted this examination/study. > Interpreting Provider: HEATHER FREGOSO MD on 11/14/2022 9:54 AM XR CHEST 1VW PORTABLE Result Date: 11/13/2022 PROCEDURE: XR CHEST 1VW PORTABLE, DATE/TIME OF EXAM: 11/12/2022 8:45 PM, LOCATION [facility] INDICATION: R50.9: Fever, unspecified fever cause [...] abnormality. Report dictated by Agnes Olmos DO (president mortgage company). Pepe Ornelas MD have p ersonally reviewed and interpreted this examination/study. > Interpreting Provider: Pepe Gonzalez MD on 11/13/2022 11:59 AM MRI BRAIN WWO CONTRAST Result Date: 11/10/2022 PROCEDURE: MRI BRAIN WWO CONTRAST, DATE/TIME OF EXAM: 11/09/2022 11:51 PM, LOCATION [facility] INDICATION: R50.9: Fever, unspecified fever cause ADDITIONAL [...] of the right lateral ventricle and the ivknz-oh-ypod midline shift. Extensive susceptibility artifacts along the [...] DATE/TIME OF EXAM: 11/07/2022 5:25 PM, LOCATION [facility] INDICATION: R50.9: Fever, unspecified fever cause ADDITIONAL [...] chest. > Dictated by Tim Major MD (president mortgage company). I, Alexx Lopez have personally reviewed and [...] m-mode, color and spectralDoppler echocardiography. IR [facility] THROMBECT Result Date: 11/07/2022 PROCEDURE: IR [facility] THROMBECT DATE/TIME OF EXAM: 10/19/2022 10:41 [...] Time to Reperfusion: 9:54 Final TICI: 2b Satellite Installation Technician: Dr. Mitali Walter Bill Poster Installer(s): Isak Monte Vessels: Ultrasound Guided Access of Femoral Artery Ultrasound Guided Access of Radial Artery Arterial line placement in the right radial artery Right Common Carotid Artery Angiogram: Cerebral Intracranial Catheterization Mechanical Thrombectomy with Retrievable Stent and Reperfusion Catheter Angiography Through the Existing Catheter Right Femoral Artery Angiogram Anesthesia: General Anesthesia was performed and monitored by an attending Anesthesiologist and their res habilitation assistant throughout the entirety of the case [...] artery demonstrated a patent vessel. A 5 togolese sheath was placed in the radial artery [...] Following a series of exchanges, a 8 Micronesian sheath sheath was placed in the right femoralartery. A Guide and a 6 Micronesian [employer] Select Serrano 2 catheter along with a [...] system. Hemostasis was achieved using a 8 Micronesian Angio-Seal closure device. Hemostasis was immediate at [...] DATE/TIME OF EXAM: 11/05/2022 5:28 PM, LOCATION [facility] INDICATION: R50.9: Fever, unspecified fever cause ADDITIONAL [...] pattern. Report dictated by Mc Castro MD, (president mortgage company). Pepe Ornelas MD have personally reviewed and [...] DATE/TIME OF EXAM: 11/05/2022 9:38 AM, LOCATION [facility] INDICATION: R50.9: Fever, unspecified fever cause ADDITIONAL CLINICAL INFORMATION: Ordering Provider Reason For Exam: consolidation COMPARISON: Chest radiograph 10/29/2022. FINDINGS/IMPRESSION: Previously seen feeding tube has been removed. These no confluent consolidation, pleural effusion, or pneumothorax is noted. The cardiomediastinal silhouette is stable. No acute osseous abnormality is noted. Report dictated by Christopher Tobin MD, (president mortgage company). I, HEATHER FREGOSO MD have personally reviewed and interpreted this examination/study. > Interpreting Provider: HEATHER FREGOSO MD on 11/05/2022 2:[address] ABDOMEN WO CONTRAST Result Date: 11/02/2022 PROCEDURE: CT ABDOMEN WO CONTRAST, DATE/TIME OF EXAM: 2022 6:47 PM, LOCATION [facility] INDICATION: Z93.1: Presence of externally removable percutaneous [...] queried.. > Dictated by Tim Major MD (president mortgage company). I, Pepe Gonzalez MD have personallyreviewed and interpreted this examination/study. 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 4.No significant midline shift. Similar-appearing size and configuration of the ventricles without evidence of hydrocephalus. Basal cisterns are patent. 5.No other convincing change. Partially imaged left nasoenteric tube. > Interpreting Provider: Amanda Real MD, PhD on 10/31/2022 1:26 AM [facility] ANGIO TEAM Result Date: 10/30/2022 Fluoroscopy was used for this exam in the OR. Please see the Operative report. XR CHEST 1VW PORTABLE Result Date: 10/29/2022 PROCEDURE: XR CHEST 1VW PORTABLE, DATE/TIME OF EXAM: 10/29/2022 10:29 AM, LOCATION [facility] INDICATION: R09.02: Hypoxia ADDITIONAL CLINICAL INFORMATION: Ordering Provider Reason For Exam: evaluate for hypoxia COMPARISON: Chest x-ray from 10/27/2022 FINDINGS/IMPRESSION: Enteric tube is seen coursing over the diaphragm without visualization of the distal tip. There is no focal consolidation, pleural effusion, or pneumothorax. The cardiomediastinal silhouette is normal. Report dictated by Jacques Russell DO (president mortgage company). I, Jacques Cole DO have personally reviewed and interpreted this examination/study. 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 Report dictated by Jacques Russell DO (president mortgage company). Jacques Ornelas DO have personally reviewed and interpreted this examination/study. 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 FINDINGS/IMPRESSION: Enteric tube courses below the diaphragm with the distal tip superimposing the antropyloric region. Report dictated by Martell Shetty MD (president mortgage company). Jacques Ornelas DO have personally reviewed and interpreted this examination/study. > Interpreting Provider: Jacques Cole DO on 10/28/2022 12:[address] HEAD WO CONTRAST Result Date: 10/28/2022 PROCEDURE: CT HEAD WO CONTRAST, DATE/TIME OF EXAM: 10/28/2022 5:28 AM, LOCATION [facility] INDICATION: Z91.89: At high risk for bleeding [...] report is dictated by Kayla Stevenson MD (president mortgage company) 1 Lonnie Ornelas MD have personally reviewed and interpreted this examination/study. > Interpreting Provider: Lonnie Rae MD on 10/28/2022 9:15 AM XR CHEST 1VW PORTABLE Result Date: 10/27/2022 PROCEDURE: XR CHEST 1VW PORTABLE, DATE/TIME OF EXAM: 10/27/2022 10:19 AM, LOCATION [facility] INDICATION: D72.829: Leukocytosis, unspecified type ADDITIONAL CLINICAL INFORMATION: Ordering Provider Reason For Exam: any concern for pneumonia COMPARISON: Chest radiograph dated 10/25/2022. FINDINGS/IMPRESSION: Enteric tube courses below the diaphragm and out of the vgwjm-or-xixp. RUQ surgical clips are present. No focal consolidation. No pleural effusion or pneumothorax. The cardiomediastinal silhouette is normal. Report dictated by Agnes Olmos DO (president mortgage company). Pepe Ornelas MD have personally reviewed and interpreted this examination/study. 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 Enteric tube courses below the diaphragm and out of the tbeye-qq-vgfm. There is severe left rotation of the patient in this study. There is no focal consolidation, pleural effusion, or pneumothorax. The left upper lobe pulmonary nodule noted on chest CT from same day is not visualized on this plain film. The cardiomediastinal silhouette is normal. The visible bony thorax is intact. Report dictated by Royer Stovall MD (president mortgage company). IAlexx have personally reviewed and interpreted this examination/study. > Interpreting Provider: Alexx Lopez on 10/26/2022 2:[address] HEAD WO CONTRAST Result Date: 10/26/2022 PROCEDURE: CT HEAD WO CONTRAST, DATE/TIME OF EXAM: 10/26/2022 4:55 AM, LOCATION [facility] INDICATION: I63.511: Right middle cerebral artery stroke [...] report is dictated by Miranda Bowen MD (president mortgage company) IOriana MD have personally reviewed and interpreted this examination/study. > Interpreting Provider: Oriana Suarez MD on 38:[address] CHEST ABDOMEN PELVIS W CONT Result Date: 10/25/2022 PROCEDURE: CT CHEST ABDOMEN PELVIS W CONT, DATE/TIME OF EXAM: 10/25/2022 12:56 PM, LOCATION [facility] INDICATION: I63.511: Right middle [...] verification. > Dictated by Clarisa Cantrell MD (president mortgage company). I, Alexx Lopez have personally reviewed and interpreted this examination/study. > Interpreting Provider: Alexx Lopez on 10/25/2022 4:[address] HEAD WO CONTRAST Result Date: 10/25/2022 PROCEDURE: CT HEAD WO CONTRAST, DATE/TIME OF EXAM: 10/25/2022 12:56 PM, LOCATION [facility] INDICATION: I63.511: Right middle cerebral artery stroke (CMS/[facility]) I33.0: Aortic valve vegetation ADDITIONAL CLINICAL [...] report is dictated by Miranda Bowen MD (president mortgage company) I, Joni Fabian MD have personally reviewed and interpreted this examination/study. > Interpreting Provider: Joni Fabian MD on 10/25/2022 2:[address] CARDIAC ANGIO STRUCT MORPH Result Date: 10/25/2022 PROCEDURE: CT CARDIAC ANGIO STRUCT MORPH, DATE/TIME OF EXAM: 10/23/2022 3:08 PM, LOCATION [facility] INDICATION: I63.411: Acute cerebrovascular accident (CVA) due [...] DATE/TIME OF EXAM: 10/24/2022 2:04 PM, LOCATION [facility] INDICATION: R47.1: Dysarthria ADDITIONAL CLINICAL INFORMATION: Ordering Provider ReasonFor Exam: ngt placement COMPARISON: Portable KUB dated 10/23/2022 FINDINGS/IMPRESSION: The enteric tube courses below the diaphragm with tip superimposing the gastric pyloric region. Drafted by Agnes Olmos DO (president mortgage company). I, Vanessa Kumar MD have personally reviewed and interpreted this examination/study. > Interpreting Provider: Vanessa Kumar MD on 10/24/2022 2:17 PM MRI BRAIN WWO CONTRAST Result Date: 10/24/2022 PROCEDURE: MRI BRAIN WWO CONTRAST, DATE/TIME OF EXAM: 10/24/2022 10:56 AM, LOCATION [facility] INDICATION: I63.411: Acute cerebrovascular accident (CVA) due [...] right lateral ventricle, and approximately 3-4 mm wrbnd-yk-lzfu midline shift at the level of the [...] right lateral ventricle, and approximately 3-4 mm rkgsg-sh-txxg midline shift, grossly similar to the prior. [...] verification. Report dictated by Tim Major MD (president mortgage company). Jasper Ornelas MD have personally reviewed and interpreted this examination/study. > Interpreting Provider: Jasper Sifuentes MD on 10/24/2022 1:59 PM XR CHEST 1VW PORTABLE Result Date: 10/24/2022 PROCEDURE: XR CHEST 1VW PORTABLE, DATE/TIME OF EXAM: 10/23/2022 8:24 AM, LOCATION [facility] INDICATION: I63.511: Right middle cerebral artery stroke ([facility]/HCC) ADDITIONAL CLINICAL INFORMATION: Ordering Provider Reason For Exam: OETT position COMPARISON: Chest radiograph dated 10/21/2022 FINDINGS/IMPRESSION: The enteric tube courses below the diaphragm out of the inferior utjhh-pg-phty. Endotracheal tube terminates in the midthoracic trachea. There is no focal consolidation. No pleural effusion or pneumothorax. The cardiomediastinal silhouette is normal. No acute osseous abnormality. Report dictated by Agnes Olmos DO (president mortgage company). Vanessa Ornelas MD have personally reviewed and [...] DATE/TIME OF EXAM: 10/23/2022 1:53 PM, LOCATION [facility] INDICATION: R47.1: Dysarthria ADDITIONAL CLINICAL INFORMATION: Ordering Provider ReasonFor Exam: NGT placement COMPARISON: Portable KUB dated 10/20/2022 FINDINGS/IMPRESSION: The enteric tube courses below the diaphragm with tip superimposing the stomach. Drafted by Agnes Olmos DO (president mortgage company). I, Vanessa Kumar MD have personally reviewed and interpreted this examination/study. 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 ILonnie MD have personally reviewed and interpreted this examination/study. > Interpreting Provider: Lonnie Rae MD on 10/22/2022 3:10 PM XR CHEST 1VW PORTABLE Result Date: 10/21/2022 PROCEDURE: XR CHEST 1VW PORTABLE, DATE/TIME OF EXAM: 10/21/2022 8:53 AM, LOCATION [facility] INDICATION: R53.1: Weakness ADDITIONAL CLINICAL INFORMATION: Ordering [...] intact. Report dictated by Christopher Tobin MD, (president mortgage company). I, HEATHER FREGOSO MD have personally reviewed [...] DATE/TIME OF EXAM: 10/20/2022 9:13 PM, LOCATION [facility] INDICATION: I63.411: Acute cerebrovascular accident (CVA) due to embolism of right middle cerebral artery (CMS/HCC) ADDITIONAL CLINICAL INFORMATION: Ordering Provider Reason For Exam: [facility] COMPARISON: Multiple prior studies, most [...] effacement, effacement of theright lateral ventricle, and jpzeo-ux-ujdo midline shift measuring up to 4 mm [...] Dictated by Bassam Jovel M.D. (vice president regulatory) Gonzalez Ornelas MD have personally reviewed and [...] body. Report dictated by Royer Stovall MD (president mortgage company). Amanda Ornelas MD have personally reviewed and [...] DATE/TIME OF EXAM: 10/19/2022 8:16 AM, LOCATION [facility] INDICATION: Code Stroke ADDITIONAL CLINICAL INFORMATION: Ordering [...] DATE/TIME OF EXAM: 10/19/2022 8:04 AM, LOCATION [facility] INDICATION: Code Stroke ADDITIONAL CLINICAL INFORMATION: Ordering [...] prefers location for rehab Discharge Facility Information: [facility] ([address] [place] [address]) SW notified [facility] Associate Business AnalystElida to begin insurance auth Insurance authorization is required for post acute care needs Payer/Plan Subscriber Name Rel Member # Group # [facility]* CONSUELO DARBY Juma [id number] [address] [id number] Anticipated level of care at discharge: Acute Rehab Facility: Anticipated level of care provider: [facility]: Anticipated Discharge Date: 11/17/22: Orientation Level: Oriented to Person;Oriented to Place;Oriented to Time: Family Support (Name and Phone): Extended Emergency Contact Information Primary Emergency Contact: Hi Darby Address: [address] [place] [address] [place] [address] [facility] Relation: Spouse Secondary Emergency Contact: Sandra Disla [facility] Mobile Relation: Mother Transportation at Discharge: Ambulance: READMISSION RISK SCORE is 16 at 3:39 PM 11/16/2022.: Name: Anita Richards * Jerry Leigh SLP - 11/16/2022 1:30 PM CDT [facility] Language Evaluation and Swallow Therapy Patient: Consuelo Darby Med Record Number: [id number] Date of : 1980 Age: [age] year old PPE: n95, gloves Impressions: Patient's speech and language assessed via the WAB. Patient demonstrated a mild expressive language deficit, with halting speech and slow processing. Patient completed PO trial of multiple ice chips and attempted to drink from the straw but was unable to achieve adequate suction. COMPENSATION ANALYST utilized straw as a pipette and patient [...] to demonstrate gains in problem solving/abstract reasoning. Slat Basket Maker Helper Machine Goals: Patient to be independent/baseline with speech/language/cognitive/swallowing to beable to safely discharge to prior level of care. If patient is discharged from the facility, this note serves as a discharge note if further speech therapy visits did not occur. Jerry Valle M.A., CCC-COMPENSATION ANALYST Speech Language Pathologist [phone] * Shania Troy, OT - 11/16/2022 12:01 PM CDT [facility] Physical Medicine and Rehabilitation Occupational Therapy Progress Note Patient: Consuelo Darby Med Record Number: [id number] Date of : 1980 Age: [age] year old PPE worn by staff: gloves;mask - surgical brace maker: Cheli Recommendations: Discharge OT Discharge Recommendations: Patient [...] Appearance: Pt in bed upon arrival in [facility]. LDA: PIV, PEG, puentes catheter Mental [...] ACTIVITY TOLERANCE: Patient's activity tolerance: fair Modified Gove: Current Modified Maryann Score: 5 AM-PAC 6 [...] with good endurance and with minimal pain Retirement Goal(s): Patient to discharge to appropriate next [...] Recent Labs Component Name 11/16/2221611/15/2221111/14/22 0239 10/27/22 20210/27/22 0054 PLTCOUNT 446* 404* 364 - 519* [...] Name 11/15/22 0212 11/14/22 0239 11/13/22 0210 NA 137 140 138 [...] 6.0* EAG 126 Recent Labs Component Name 11/15/22 0212 11/14/22 0239 11/13/22 0210 10/27/22202810/27/22 0054 PLTCOUNT [...] she'd just gotten back from a procedure. Division Engineer will try to follow up tomorrow. chaplain Cici Ascom [phone] call center manager [phone] * Shania Troy OT - 11/15/2022 10:52 AM CDT [facility] Department of Physical Medicine & Rehabilitation Progress Note Patient: Consuelo Darby Med Record Number: [id number] Date of : 1980 Age: [age] year old 11/15/22 1146 Missed Visit Missed Visit Procedure Off Floor Pt off the floor for LP at time of OT attempt. OT will continue to follow and attempt treatment session at a later time/date as appropriate. * Rosa Vegas, PT - 11/15/2022 10:40 AM CDT [facility] Department of Physical Medicine & Rehabilitation Progress Note Patient: Consuelo Darby Med Record Number: [id number] Date of : 1980 Age: [age] year [...] results for input(s): MG in the last 74052 hours. Recent Labs Component Name 11/15/2221111/14/2223811/13/22209 PHOS 3.0 3.5 3.9 Recent Labs Component Name 11/15/2221111/14/2223811/13/22209 PT 14.3 15.9* 17.7* INR 1.1 1.3 1.5 PTT 28.2 45.9* 47.9* No results for input(s): A1C in the last 24984 hours. Recent Labs Component Name 10/20/22 0302 [...] cholecystectomy. > Dictated by Miranda Bowen MD (president mortgage company). > Dictated by Miranda Bowen (Advertising Sales Manager) 11/14/2022 9:18 AM IHEATHER MD have personally reviewed and interpreted this examination/study. > Interpreting Provider: HEATHER FREGOSO MD on 11/14/2022 9:54 AM XR CHEST 1VW PORTABLE Result Date: 11/13/2022 PROCEDURE: XR CHEST 1VW PORTABLE, DATE/TIME OF EXAM: 11/12/2022 8:45 PM, LOCATION [facility] INDICATION: R50.9: Fever, unspecified fever cause [...] abnormality. Report dictated by Agnes Olmos DO (president mortgage company). I, Pepe Gonzalez MD have p ersonally reviewed and interpreted this examination/study. > Interpreting Provider: Pepe Gonzalez MD on 11/13/2022 11:59 AM MRI BRAIN WWO CONTRAST Result Date: 11/10/2022 PROCEDURE: MRI BRAIN WWO CONTRAST, DATE/TIME OF EXAM: 11/09/2022 11:51 PM, LOCATION [facility] INDICATION: R50.9: Fever, unspecified fever cause ADDITIONAL [...] of the right lateral ventricle and the mjhrt-li-usgi midline shift. Extensive susceptibility artifacts along the [...] DATE/TIME OF EXAM: 11/07/2022 5:25 PM, LOCATION [facility] INDICATION: R50.9: Fever, unspecified fever cause ADDITIONAL [...] chest. > Dictated by Tim Major MD (president mortgage company). I, Alexxmat Lopez have personally reviewed and [...] THROMBECT Result Date: 11/07/2022 PROCEDURE: IR [facility] THROMBECT DATE/TIME OF EXAM: 10/19/2022 10:41 [...] Time to Reperfusion: 9:54 Final TICI: 2b Satellite Installation Technician: Dr. Mitali Walter Bill Poster Installer(s): Isak Monte Vessels: Ultrasound Guided Access of Femoral Artery Ultrasound Guided Access of Radial Artery Arterial line placement in the right radial artery Right Common Carotid Artery Angiogram: Cerebral Intracranial Catheterization Mechanical Thrombectomy with Retrievable Stent and Reperfusion Catheter Angiography Through the Existing Catheter Right Femoral Artery Angiogram Anesthesia: General Anesthesia was performed and monitored by an attending Anesthesiologist and their res habilitation assistant throughout the entirety of the case [...] artery demonstrated a patent vessel. A 5 togolese sheath was placed in the radial artery [...] Following a series of exchanges, a 8 Micronesian sheath sheath was placed in the right femoralartery. A Guide and a 6 Micronesian Penumbra Select Serrano 2 catheter along with [...] system. Hemostasis was achieved using a 8 Micronesian Angio-Seal closure device. Hemostasis was immediate at [...] DATE/TIME OF EXAM: 11/05/2022 5:28 PM, LOCATION [facility] INDICATION: R50.9: Fever, unspecified fever cause ADDITIONAL [...] pattern. Report dictated by Mc Castro MD, (president mortgage company). I, Pepe Gonzalez MD have personally reviewed [...] DATE/TIME OF EXAM: 11/05/2022 9:38 AM, LOCATION [facility] INDICATION: R50.9: Fever, unspecified fever cause ADDITIONAL CLINICAL INFORMATION: Ordering Provider Reason For Exam: consolidation COMPARISON: Chest radiograph 10/29/2022. FINDINGS/IMPRESSION: Previously seen feeding tube has been removed. These no confluent consolidation, pleural effusion, or pneumothorax is noted. The cardiomediastinal silhouette is stable. No acute osseous abnormality is noted. Report dictated by Christopher Tobin MD, MD (president mortgage company). I, HEATHER FREGOSO MD have personally reviewed and interpreted this examination/study. > Interpreting Provider: HEATHER FREGOSO MD on 11/05/2022 2:[address] ABDOMEN WO CONTRAST Result Date: 11/02/2022 PROCEDURE: CT ABDOMEN WO CONTRAST, DATE/TIME OF EXAM: 2022 6:47 PM, LOCATION [facility] INDICATION: Z93.1: Presence of externally removable percutaneous [...] queried.. > Dictated by Tim Major MD (president mortgage company). I, Pepe Gonzalez MD have personallyreviewed and interpreted this examination/study. 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 4.No significant midline shift. Similar-appearing size and configuration of the ventricles without evidence of hydrocephalus. Basal cisterns are patent. 5.No other convincing change. Partially imaged left nasoenteric tube. > Interpreting Provider: Amanda Real MD, PhD on 10/31/2022 1:26 AM OR GLENN Farhad ANGIO TEAM Result Date: 10/30/2022 Fluoroscopy was used for this exam in the OR. Please see the Operative report. XR CHEST 1VW PORTABLE Result Date: 10/29/2022 PROCEDURE: XR CHEST 1VW PORTABLE, DATE/TIME OF EXAM: 10/29/2022 10:29 AM, LOCATION [facility] INDICATION: R09.02: Hypoxia ADDITIONAL CLINICAL INFORMATION: Ordering Provider Reason For Exam: evaluate for hypoxia COMPARISON: Chest x-ray from 10/27/2022 FINDINGS/IMPRESSION: Enteric tube is seen coursing over the diaphragm without visualization of the distal tip. There is no focal consolidation, pleural effusion, or pneumothorax. The cardiomediastinal silhouette is normal. Report dictated by Jacques Russell DO (president mortgage company). Jacques Ornelas DO have personally reviewed and interpreted this examination/study. 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 Report dictated by Jacques Russell DO (president mortgage company). Jacques Ornelas DO have personally reviewed and interpreted this examination/study. 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 FINDINGS/IMPRESSION: Enteric tube courses below the diaphragm with the distal tip superimposing the antropyloric region. Report dictated by Martell Shetty MD (president mortgage company). IJacques DO have personally reviewed and interpreted this examination/study. > Interpreting Provider: Jacques Cole DO on 10/28/2022 12:[address] HEAD WO CONTRAST Result Date: 10/28/2022 PROCEDURE: CT HEAD WO CONTRAST, DATE/TIME OF EXAM: 10/28/2022 5:28 AM, LOCATION [facility] INDICATION: Z91.89: At high risk for bleeding [...] report is dictated by Kayla Stevenson MD (president mortgage company) 1 Lonnie Ornelas MD have personally reviewed and interpreted this examination/study. > Interpreting Provider: Lonnie Rae MD on 10/28/2022 9:15 AM XR CHEST 1VW PORTABLE Result Date: 10/27/2022 PROCEDURE: XR CHEST 1VW PORTABLE, DATE/TIME OF EXAM: 10/27/2022 10:19 AM, LOCATION [facility] INDICATION: D72.829: Leukocytosis, unspecified type ADDITIONAL CLINICAL INFORMATION: Ordering Provider Reason For Exam: any concern for pneumonia COMPARISON: Chest radiograph dated 10/25/2022. FINDINGS/IMPRESSION: Enteric tube courses below the diaphragm and out of the lzkrl-ud-xusb. RUQ surgical clips are present. No focal consolidation. No pleural effusion or pneumothorax. The cardiomediastinal silhouette is normal. Report dictated by Agnes Olmos DO (president mortgage company). Pepe Ornelas MD have personally reviewed and interpreted this examination/study. 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 Enteric tube courses below the diaphragm and out of the zvklg-bd-nuom. There is severe left rotation of the patient in this study. There is no focal consolidation, pleural effusion, or pneumothorax. The left upper lobe pulmonary nodule noted on chest CT from same day is not visualized on this plain film. The cardiomediastinal silhouette is normal. The visible bony thorax is intact. Report dictated by Royer Stovall MD (president mortgage company). I, Alexx Lopez have personally reviewed and interpreted this examination/study. > Interpreting Provider: Alexx Lopez on 10/26/2022 2:[address] HEAD WO CONTRAST Result Date: 10/26/2022 PROCEDURE: CT HEAD WO CONTRAST, DATE/TIME OF EXAM: 10/26/2022 4:55 AM, LOCATION [facility] INDICATION: I63.511: Right middle cerebral artery stroke ([facility]/HCC) ADDITIONAL CLINICAL INFORMATION: Ordering Provider Reason [...] report is dictated by Miranda Bowen MD (president mortgage company) I, Oriana Suarez MD have personally reviewed and interpreted this examination/study. > Interpreting Provider: Oriana Suarez MD on 38:[address] CHEST ABDOMEN PELVIS W CONT Result Date: 10/25/2022 PROCEDURE: CT CHEST ABDOMEN PELVIS W CONT, DATE/TIME OF EXAM: 10/25/2022 12:56 PM, LOCATION [facility] INDICATION: I63.511: Right middle [...] verification. > Dictated by Clarisa Cantrell MD (president mortgage company). I, Alexx Lopez have personally reviewed and interpreted this examination/study. > Interpreting Provider: Alexx Lopez on 10/25/2022 4:[address] HEAD WO CONTRAST Result Date: 10/25/2022 PROCEDURE: CT HEAD WO CONTRAST, DATE/TIME OF EXAM: 10/25/2022 12:56 PM, LOCATION [facility] INDICATION: I63.511: Right middle cerebral [...] report is dictated by Miranda Bowen MD (president mortgage company) I, Joni Fabian MD have personally reviewed and interpreted this examination/study. > Interpreting Provider: Joni Fabian MD on 10/25/2022 2:[address] CARDIAC ANGIO STRUCT MORPH Result Date: 10/25/2022 PROCEDURE: CT CARDIAC ANGIO STRUCT MORPH, DATE/TIME OF EXAM: 10/23/2022 3:08 PM, LOCATION [facility] INDICATION: I63.411: Acute cerebrovascular accident (CVA) due [...] DATE/TIME OF EXAM: 10/24/2022 2:04 PM, LOCATION [facility] INDICATION: R47.1: Dysarthria ADDITIONAL CLINICAL INFORMATION: Ordering Provider ReasonFor Exam: ngt placement COMPARISON: Portable KUB dated 10/23/2022 FINDINGS/IMPRESSION: The enteric tube courses below the diaphragm with tip superimposing the gastric pyloric region. Drafted by Agnes Olmos DO (president mortgage company). I, Vanessa Kumar MD have personally reviewed and interpreted this examination/study. > Interpreting Provider: Vanessa Kumar MD on 10/24/2022 2:17 PM MRI BRAIN WWO CONTRAST Result Date: 10/24/2022 PROCEDURE: MRI BRAIN WWO CONTRAST, DATE/TIME OF EXAM: 10/24/2022 10:56 AM, LOCATION [facility] INDICATION: I63.411: Acute cerebrovascular accident (CVA) due [...] right lateral ventricle, and approximately 3-4 mm cqmix-zi-gzly midline shift at the level of the [...] right lateral ventricle, and approximately 3-4 mm ilxlw-ua-lqfq midline shift, grossly similar to the prior. [...] verification. Report dictated by Tim Major MD (president mortgage company). I, Jasper Sifuentes MD have personally reviewed and interpreted this examination/study. 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 Endotracheal tube terminates in the midthoracic trachea. There is no focal consolidation. No pleural effusion or pneumothorax. The cardiomediastinal silhouette is normal. No acute osseous abnormality. Report dictated by Agnes Olmos DO (president mortgage company). Vanessa Ornelas MD have personally reviewed and [...] DATE/TIME OF EXAM: 10/23/2022 1:53 PM, LOCATION [facility] INDICATION: R47.1: Dysarthria ADDITIONAL CLINICAL INFORMATION: Ordering Provider ReasonFor Exam: NGT placement COMPARISON: Portable KUB dated 10/20/2022 FINDINGS/IMPRESSION: The enteric tube courses below the diaphragm with tip superimposing the stomach. Drafted by Agnes Olmos DO (president mortgage company). Vanessa Ornelas MD have personally reviewed and interpreted this examination/study. 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 Lonnie Ornelas MD have personally reviewed and interpreted this examination/study. > Interpreting Provider: Lonnie Rae MD on 10/22/2022 3:10 PM XR CHEST 1VW PORTABLE Result Date: 10/21/2022 PROCEDURE: XR CHEST 1VW PORTABLE, DATE/TIME OF EXAM: 10/21/2022 8:53 AM, LOCATION [facility] INDICATION: R53.1: Weakness ADDITIONAL CLINICAL INFORMATION: Ordering [...] Report dictated by Christopher Tobin MD, MD (president mortgage company). HEATHER Ornelas MD have personally reviewed and [...] DATE/TIME OF EXAM: 10/20/2022 9:13 PM, LOCATION [facility] INDICATION: I63.411: Acute cerebrovascular accident (CVA) due to embolism of right middle cerebral artery (CMS/HCC) ADDITIONAL CLINICAL INFORMATION: Ordering Provider Reason For Exam: [facility] COMPARISON: Multiple prior studies, most [...] effacement, effacement of theright lateral ventricle, and jzjgi-qd-rwtl midline shift measuring up to 4 mm [...] Dictated by Bassam Jovel M.D. (vice president regulatory) Gonzalez Ornelas MD have personally reviewed and [...] body. Report dictated by Royer Stovall MD (president mortgage company). I, Amanda Prieto MD have personally reviewed [...] DATE/TIME OF EXAM: 10/19/2022 8:16 AM, LOCATION [facility] INDICATION: Code Stroke ADDITIONAL CLINICAL INFORMATION: Ordering [...] DATE/TIME OF EXAM: 10/19/2022 8:04 AM, LOCATION [facility] INDICATION: Code Stroke ADDITIONAL CLINICAL INFORMATION: Ordering [...] Troy OT - 11/14/2022 3:13 PM CDT [facility] Physical Medicine and Rehabilitation Occupational Therapy Progress Note Patient: Consuelo Darby Med Record Number: [id number] Date of : 1980 Age: [age] year old PPE worn by staff: gloves;mask - surgical brace maker: Cheli Reevaluation not indicated this date s/p [...] Appearance: Pt in bed upon arrival in [facility], finishing with PT. LDA: PIV, PEG, [...] with good endurance and with minimal pain Retirement Goal(s): Patient to discharge to appropriate next [...] Leigh SLP - 11/14/2022 3:01 PM CDT [facility] Physical Medicine and Rehabilitation Swallow and Speech Treatment Patient: Consuelo Darby Med Record Number: [id number] Date of : 1980 Age: [age] year [...] Impression - Pharyngeal: Moderate Treatment/Education/Interventions: While performing COMPENSATION ANALYST, Patient and sister was instructed in: goals [...] precautions., Patient will follow recommended swallowing strategies. Retirement Goal (s): Patient to be independent/baseline with functional mobility and self care and be able to safely discharge to prior level of care. Jerry Valle M.A., [facility]-COMPENSATION ANALYST Speech Language Pathologist [phone] * Solomon Brush DO - 11/14/2022 1:34 PM CDT [facility] Patient: Consuelo Darby Age: [age] year old Date of : 1980 Date of Admission: 10/19/2022 Date: 11/14/2022 Reason for consult: elevated liver enzymes Consult team: Neuro stroke HISTORY: I saw . Consuelo Darby in consultation at [facility] on 11/14/2022 for evaluation of her elevated [...] Panel: Recent Labs Component Name 11/14/22 02311/13/22 02111/12/22 0532 PT 15.9* 17.7* 22.1* INR 1.3 1.5 2.0 PTT 45.9* 47.9* 102.7* BMP: Recent Labs Component Name 11/14/22 02311/13/22 02111/12/22 0532 NA 140 138 136 CL 104 107 105 CO2 21* BUN 11 11 13 CREATININE 0.51* 0.54* 0.59 CALCIUM 8.6 8.1* 7.8* Recent Labs Component Name 11/14/22 02311/13/22 02111/12/22 0532 MAGNESIUM 2.0 2.2 1.7 Recent Labs Component Name 11/14/22 02311/13/22 0210 11/12/22 0532 PHOS 3.5 3.9 2.5* Hepatic Panel: Recent Labs Component Name 11/14/2223811/13/22 02111/12/22 0532 AST 158* 195* 220* ALT 278* [...] attending physician. Solomon Brush, IM Resident PGY-1 [facility] Associated attestation - Cory Villarreal MD - [...] Pain affecting intake: No Estimated Needs: KCAL: [id number] (30-35 kcal/kg IBW) Protein (g): 82g (1.5 [...] Vegas, PT - 11/14/2022 10:00 AM CDT [facility] Physical Medicine and Rehabilitation Physical Therapy Progress Note Patient: Consuelo Darby Med Record Number: [id number] Date of : 1980 Age: [age] year [...] monitoring of vitals Modified Maryann: Current Modified Maryann Score: 5 [...] EOB x10 minutes with minimal assist ?? Retirement Goal(s): Patient to discharge to appropriate next [...] results for input(s): MG in the last 00716 hours. Recent Labs Component Name 11/14/22 0239 11/13/22 0210 11/12/22 0532 PHOS 3.5 3.9 2.5* Recent Labs Component Name 11/14/22 0239 11/13/22 0210 11/12/22 0532 PT 15.9* 17.7* 22.1* INR 1.3 1.5 2.0 PTT 45.9* 47.9* 102.7* No results for input(s): A1C in the last 71377 hours. Recent Labs Component Name 10/20/22 0302 06/15/22 0757 CHOL 173 204* HDL 42 37* LDLCALC 91 117* TRIG 201* 251* Recent Labs Component Name 11/13/22 0210 TSH 5.706* Recent Labs Component Name 11/13/22 1534 CKTOTAL 57 XR CHEST 1VW PORTABLE Result Date: 11/13/2022 PROCEDURE: XR CHEST 1VW PORTABLE, DATE/TIME OF EXAM: 11/12/2022 8:45 PM, LOCATION [facility] INDICATION: R50.9: Fever, unspecified fever cause [...] abnormality. Report dictated by Agnes Olmos DO (president mortgage company). I, Pepe Gonzalez MD have p ersonally reviewed and interpreted this examination/study. > Interpreting Provider: Pepe Gonzalez MD on 11/13/2022 11:59 AM MRI BRAIN WWO CONTRAST Result Date: 11/10/2022 PROCEDURE: MRI BRAIN WWO CONTRAST, DATE/TIME OF EXAM: 11/09/2022 11:51 PM, LOCATION [facility] INDICATION: R50.9: Fever, unspecified fever cause ADDITIONAL [...] of the right lateral ventricle and the jftkq-gf-yori midline shift. Extensive susceptibility artifacts along the [...] DATE/TIME OF EXAM: 11/07/2022 5:25 PM, LOCATION [facility] INDICATION: R50.9: Fever, unspecified fever cause ADDITIONAL [...] chest. > Dictated by Tim Major MD (president mortgage company). I, Alexx Lopez have personally reviewed and [...] m-mode, color and spectralDoppler echocardiography. IR [facility] THROMBECT Result Date: 11/07/2022 PROCEDURE: IR [facility] THROMBECT DATE/TIME OF EXAM: 10/19/2022 10:41 [...] Time to Reperfusion: 9:54 Final TICI: 2b Satellite Installation Technician: Dr. Mitali Walter Bill Poster Installer(s): Isak Monte Vessels: Ultrasound Guided Access of Femoral Artery Ultrasound Guided Access of Radial Artery Arterial line placement in the right radial artery Right Common Carotid Artery Angiogram: Cerebral Intracranial Catheterization Mechanical Thrombectomy with Retrievable Stent and Reperfusion Catheter Angiography Through the Existing Catheter Right Femoral Artery Angiogram Anesthesia: General Anesthesia was performed and monitored by an attending Anesthesiologist and their res habilitation assistant throughout the entirety of the case [...] artery demonstrated a patent vessel. A 5 togolese sheath was placed in the radial artery [...] Following a series of exchanges, a 8 Micronesian sheath sheath was placed in the right femoralartery. A Guide and a 6 Micronesian [employer] Select Serrano 2 catheter along with a [...] system. Hemostasis was achieved using a 8 Micronesian Angio-Seal closure device. Hemostasis was immediate at [...] DATE/TIME OF EXAM: 11/05/2022 5:28 PM, LOCATION [facility] INDICATION: R50.9: Fever, unspecified fever cause ADDITIONAL [...] pattern. Report dictated by Mc Castro MD, (president mortgage company). IPepe MD have personally reviewed and interpreted [...] DATE/TIME OF EXAM: 11/05/2022 9:38 AM, LOCATION [facility] INDICATION: R50.9: Fever, unspecified fever cause ADDITIONAL CLINICAL INFORMATION: Ordering Provider Reason For Exam: consolidation COMPARISON: Chest radiograph 10/29/2022. FINDINGS/IMPRESSION: Previously seen feeding tube has been removed. These no confluent consolidation, pleural effusion, or pneumothorax is noted. The cardiomediastinal silhouette is stable. No acute osseous abnormality is noted. Report dictated by Christopher Tobin MD, (president mortgage company). I, HEATHER FREGOSO MD have personally reviewed and interpreted this examination/study. > Interpreting Provider: HEATHER FREGOSO MD on 11/05/2022 2:[address] ABDOMEN WO CONTRAST Result Date: 11/02/2022 PROCEDURE: CT ABDOMEN WO CONTRAST, DATE/TIME OF EXAM: 2022 6:47 PM, LOCATION [facility] INDICATION: Z93.1: Presence of externally removable percutaneous [...] queried.. > Dictated by Tim Major MD (president mortgage company). I, Pepe Gonzalez MD have personallyreviewed and interpreted this examination/study. > Interpreting Provider: Pepe Gonzalez MD on 11/02/2022 1:[address] ABDOMEN PELVIS W CONTRAST Result Date: 10/31/2022 PROCEDURE: CT ABDOMEN PELVIS W CONTRAST, DATE/TIME OF EXAM: 10/31/2022 10:16 AM, LOCATION [facility] INDICATION: I33.0: Aortic valve vegetation ADDITIONAL CLINICAL [...] DATE/TIME OF EXAM: 10/30/2022 8:22 PM, LOCATION: [facility] HISTORY: I63.511: Right middle cerebral artery stroke [...] frontal gyrus/frontal operculum, consistent with an evolving ogmvypjz-vz-gfyulyj infarct. 4.No significant midline shift. Similar-appearing size and configuration of the ventricles without evidence of hydrocephalus. Basal cisterns are patent. 5.No other convincing change. Partially imaged left nasoenteric tube. > Interpreting Provider: Amanda Real MD, PhD on 10/31/2022 1:26 AM [facility] ANGIO TEAM Result Date: 10/30/2022 Fluoroscopy was used for this exam in the OR. Please see the Operative report. XR CHEST 1VW PORTABLE Result Date: 10/29/2022 PROCEDURE: XR CHEST 1VW PORTABLE, DATE/TIME OF EXAM: 10/29/2022 10:29 AM, LOCATION [facility] INDICATION: R09.02: Hypoxia ADDITIONAL CLINICAL INFORMATION: Ordering Provider Reason For Exam: evaluate for hypoxia COMPARISON: Chest x-ray from 10/27/2022 FINDINGS/IMPRESSION: Enteric tube is seen coursing over the diaphragm without visualization of the distal tip. There is no focal consolidation, pleural effusion, or pneumothorax. The cardiomediastinal silhouette is normal. Report dictated by Jacques Russell DO (president mortgage company). I, Jacques Cole DO have personally reviewed and interpreted this examination/study. 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 Report dictated by Jacques Russell DO (president mortgage company). Jacques Ornelas DO have personally reviewed and interpreted this examination/study. 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 FINDINGS/IMPRESSION: Enteric tube courses below the diaphragm with the distal tip superimposing the antropyloric region. Report dictated by Martell Shetty MD (president mortgage company). Jacques Ornelas DO have personally reviewed and interpreted this examination/study. > Interpreting Provider: Jacques Cole DO on 10/28/2022 12:[address] HEAD WO CONTRAST Result Date: 10/28/2022 PROCEDURE: CT HEAD WO CONTRAST, DATE/TIME OF EXAM: 10/28/2022 5:28 AM, LOCATION [facility] INDICATION: Z91.89: At high risk for bleeding [...] report is dictated by Kayla Stevenson MD (president mortgage company) 1 Lonnie Ornelas MD have personally reviewed and interpreted this examination/study. > Interpreting Provider: Lonnie Rae MD on 10/28/2022 9:15 AM XR CHEST 1VW PORTABLE Result Date: 10/27/2022 PROCEDURE: XR CHEST 1VW PORTABLE, DATE/TIME OF EXAM: 10/27/2022 10:19 AM, LOCATION [facility] INDICATION: D72.829: Leukocytosis, unspecified type ADDITIONAL CLINICAL INFORMATION: Ordering Provider Reason For Exam: any concern for pneumonia COMPARISON: Chest radiograph dated 10/25/2022. FINDINGS/IMPRESSION: Enteric tube courses below the diaphragm and out of the zpvto-to-zvzm. RUQ surgical clips are present. No focal consolidation. No pleural effusion or pneumothorax. The cardiomediastinal silhouette is normal. Report dictated by Agnes Olmos DO (president mortgage company). Pepe Ornelas MD have personally reviewed and interpreted this examination/study. 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 Enteric tube courses below the diaphragm and out of the dczli-es-czal. There is severe left rotation of the patient in this study. There is no focal consolidation, pleural effusion, or pneumothorax. The left upper lobe pulmonary nodule noted on chest CT from same day is not visualized on this plain film. The cardiomediastinal silhouette is normal. The visible bony thorax is intact. Report dictated by Royer Stovall MD (president mortgage company). IAlexx have personally reviewed and interpreted this examination/study. 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 > Interpreting Provider: Oriana Suarez MD on 38:[address] CHEST ABDOMEN PELVIS W CONT Result Date: 10/25/2022 PROCEDURE: CT CHEST ABDOMEN PELVIS W CONT, DATE/TIME OF EXAM: 10/25/2022 12:56 PM, LOCATION [facility] INDICATION: I63.511: Right middle [...] verification. > Dictated by Clarisa Cantrell MD (president mortgage company). I, Alexx Lopez have personally reviewed and interpreted this examination/study. > Interpreting Provider: Alexx Lopez on 10/25/2022 4:[address] HEAD WO CONTRAST Result Date: 10/25/2022 PROCEDURE: CT HEAD WO CONTRAST, DATE/TIME OF EXAM: 10/25/2022 12:56 PM, LOCATION [facility] INDICATION: I63.511: Right middle cerebral [...] report is dictated by Miranda Bowen MD (president mortgage company) I, Joni Fabian MD have personally reviewed and interpreted this examination/study. > Interpreting Provider: Joni Fabian MD on 10/25/2022 2:[address] CARDIAC ANGIO STRUCT MORPH Result Date: 10/25/2022 PROCEDURE: CT CARDIAC ANGIO STRUCT MORPH, DATE/TIME OF EXAM: 10/23/2022 3:08 PM, LOCATION [facility] INDICATION: I63.411: Acute cerebrovascular accident (CVA) due [...] DATE/TIME OF EXAM: 10/24/2022 2:04 PM, LOCATION [facility] INDICATION: R47.1: Dysarthria ADDITIONAL CLINICAL INFORMATION: Ordering Provider ReasonFor Exam: ngt placement COMPARISON: Portable KUB dated 10/23/2022 FINDINGS/IMPRESSION: The enteric tube courses below the diaphragm with tip superimposing the gastric pyloric region. Drafted by Agnes Olmos DO (president mortgage company). I, Vanessa Kumar MD have personally reviewed and interpreted this examination/study. > Interpreting Provider: Vanessa Kumar MD on 10/24/2022 2:17 PM MRI BRAIN WWO CONTRAST Result Date: 10/24/2022 PROCEDURE: MRI BRAIN WWO CONTRAST, DATE/TIME OF EXAM: 10/24/2022 10:56 AM, LOCATION [facility] INDICATION: I63.411: Acute cerebrovascular accident (CVA) due [...] right lateral ventricle, and approximately 3-4 mm jhifj-gu-khsd midline shift at the level of the [...] right lateral ventricle, and approximately 3-4 mm llqbs-ld-vecy midline shift, grossly similar to the prior. [...] verification. Report dictated by Tim Major MD (president mortgage company). IJasper MD have personally reviewed and interpreted this examination/study. > Interpreting Provider: Jasper Sifuentes MD on 10/24/2022 1:59 PM XR CHEST 1VW PORTABLE Result Date: 10/24/2022 PROCEDURE: XR CHEST 1VW PORTABLE, DATE/TIME OF EXAM: 10/23/2022 8:24 AM, LOCATION [facility] INDICATION: I63.511: Right middle cerebral artery stroke (CMS/HCC) ADDITIONAL CLINICAL INFORMATION: Ordering Provider Reason For Exam: OETT position COMPARISON: Chest radiograph dated 10/21/2022 FINDINGS/IMPRESSION: The enteric tube courses below the diaphragm out of the inferior unyjr-ex-fyit. Endotracheal tube terminates in the midthoracic trachea. There is no focal consolidation. No pleural effusion or pneumothorax. The cardiomediastinal silhouette is normal. No acute osseous abnormality. Report dictated by Agnes Olmos DO (president mortgage company). Vanessa Ornelas MD have personally reviewed and [...] DATE/TIME OF EXAM: 10/23/2022 1:53 PM, LOCATION [facility] INDICATION: R47.1: Dysarthria ADDITIONAL CLINICAL INFORMATION: Ordering Provider ReasonFor Exam: NGT placement COMPARISON: Portable KUB dated 10/20/2022 FINDINGS/IMPRESSION: The enteric tube courses below the diaphragm with tip superimposing the stomach. Drafted by Agnes Olmos DO (president mortgage company). I, Vanessa Kumar MD have personally reviewed and interpreted this examination/study. 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 I, Lonnie Rae MD have personally reviewed and interpreted this examination/study. > Interpreting Provider: Lonnie Rae MD on 10/22/2022 3:10 PM XR CHEST 1VW PORTABLE Result Date: 10/21/2022 PROCEDURE: XR CHEST 1VW PORTABLE, DATE/TIME OF EXAM: 10/21/2022 8:53 AM, LOCATION [facility] INDICATION: R53.1: Weakness ADDITIONAL CLINICAL INFORMATION: Ordering [...] intact. Report dictated by Christopher Tobin MD, (president mortgage company). I, HEATHER FREGOSO MD have personally reviewed [...] DATE/TIME OF EXAM: 10/20/2022 9:13 PM, LOCATION [facility] INDICATION: I63.411: Acute cerebrovascular accident (CVA) due to embolism of right middle cerebral artery (CMS/HCC) ADDITIONAL CLINICAL INFORMATION: Ordering Provider Reason For Exam: [facility] COMPARISON: Multiple prior studies, most [...] effacement, effacement of theright lateral ventricle, and dqskt-yk-ydbb midline shift measuring up to 4 mm [...] Dictated by Bassam Jovel M.D. (vice president regulatory) Gonzalez Ornelas MD have personally reviewed and [...] body. Report dictated by Royer Stovall MD (president mortgage company). Amanda Ornelas MD have personally reviewed and [...] DATE/TIME OF EXAM: 10/19/2022 8:16 AM, LOCATION [facility] INDICATION: Code Stroke ADDITIONAL CLINICAL INFORMATION: Ordering [...] DATE/TIME OF EXAM: 10/19/2022 8:04 AM, LOCATION [facility] INDICATION: Code Stroke ADDITIONAL CLINICAL INFORMATION: Ordering [...] Parks MD - 11/14/2022 8:55 AM CDT [facility] Infectious Diseases Progress Note Date of Admission: 10/19/2022 7:53 AM Length of Stay: Room: [facility] Attending: Good Antunez MD Subjective Since last seen by us, she remains afebrile, hemodynamically stable, on room air. No acute events overnight, no acute distress, no new complaints. Unchanged mental status. 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 I agree with the findings and plan of care as documented by the customs house broker. 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 Gilberto Pastrana MD, PhD, FIDSA * Good Antunez MD - 11/14/2022 8:37 [...] bilaterally ?? Labs: Recent Labs Component Name 11/13/2220911/12/2232 11/11/22 1703 10/23/22 0129 10/22/22 0153 WBC [...] results for input(s): MG in the last 31535 hours. Recent Labs Component Name 11/13/22 0210 11/12/22 0532 11/11/22 1703 PHOS 3.9 2.5* 3.3 Recent Labs Component Name 11/13/22 0210 11/12/22 0532 11/11/22 2351 11/11/22 1703 11/11/22 0928 PT 17.7* 22.1* - - 16.2* INR 1.5 2.0 - - 1.3 PTT 47.9* 102.7* 78.8* - 129.8* - = values in this interval not displayed. No results for input(s): A1C in the last 07086 hours. Recent Labs Component Name 10/20/22 0302 06/15/22 0757 CHOL 173 204* HDL 42 37* LDLCALC 91 117* TRIG 201* 251* Recent Labs Component Name 11/13/22 021 TSH 5.706* No results for input(s): CKMB, CKTOTAL, CKMB, TROPONINI, BNP in the last 93649 hours. XR CHEST 1VW PORTABLE Result Date: 11/13/2022 PROCEDURE: XR CHEST 1VW PORTABLE, DATE/TIME OF EXAM: 11/12/2022 8:45 PM, LOCATION [facility] INDICATION: R50.9: Fever, unspecified fever cause [...] abnormality. Report dictated by Agnes Olmos DO (president mortgage company). I, Pepe Gonzalez MD have p ersonally reviewed and interpreted this examination/study. > Interpreting Provider: Pepe Gonzalez MD on 11/13/2022 11:59 AM MRI BRAIN WWO CONTRAST Result Date: 11/10/2022 PROCEDURE: MRI BRAIN WWO CONTRAST, DATE/TIME OF EXAM: 11/09/2022 11:51 PM, LOCATION [facility] INDICATION: R50.9: Fever, unspecified fever cause ADDITIONAL [...] of the right lateral ventricle and the eukpc-db-zocb midline shift. Extensive susceptibility artifacts along the [...] DATE/TIME OF EXAM: 11/07/2022 5:25 PM, LOCATION [facility] INDICATION: R50.9: Fever, unspecified fever cause ADDITIONAL [...] chest. > Dictated by Tim Major MD (president mortgage company). I, Alexx Lopez have personally reviewed and [...] Time to Reperfusion: 9:54 Final TICI: 2b Satellite Installation Technician: Dr. Mitali Walter Bill Poster Installer(s): Isak Monte Vessels: Ultrasound Guided Access of Femoral Artery Ultrasound Guided Access of Radial Artery Arterial line placement in the right radial artery Right Common Carotid Artery Angiogram: Cerebral Intracranial Catheterization Mechanical Thrombectomy with Retrievable Stent and Reperfusion Catheter Angiography Through the Existing Catheter Right Femoral Artery Angiogram Anesthesia: General Anesthesia was performed and monitored by an attending Anesthesiologist and their res habilitation assistant throughout the entirety of the case [...] artery demonstrated a patent vessel. A 5 togolese sheath was placed in the radial artery [...] Following a series of exchanges, a 8 Micronesian sheath sheath was placed in the right femoralartery. A Guide and a 6 Micronesian [employer] Select Serrano 2 catheter along with a [...] system. Hemostasis was achieved using a 8 Micronesian Angio-Seal closure device. Hemostasis was immediate at [...] DATE/TIME OF EXAM: 11/05/2022 5:28 PM, LOCATION [facility] INDICATION: R50.9: Fever, unspecified fever cause ADDITIONAL [...] pattern. Report dictated by Mc Castro MD, (president mortgage company). Pepe Ornelas MD have personally reviewed and [...] DATE/TIME OF EXAM: 11/05/2022 9:38 AM, LOCATION [facility] INDICATION: R50.9: Fever, unspecified fever cause ADDITIONAL CLINICAL INFORMATION: Ordering Provider Reason For Exam: consolidation COMPARISON: Chest radiograph 10/29/2022. FINDINGS/IMPRESSION: Previously seen feeding tube has been removed. These no confluent consolidation, pleural effusion, or pneumothorax is noted. The cardiomediastinal silhouette is stable. No acute osseous abnormality is noted. Report dictated by Christopher Tobin MD, MD (president mortgage company). IHEATHER MD have personally reviewed and interpreted this examination/study. > Interpreting Provider: HEATHER FREGOSO MD on 11/05/2022 2:[address] ABDOMEN WO CONTRAST Result Date: 11/02/2022 PROCEDURE: CT ABDOMEN WO CONTRAST, DATE/TIME OF EXAM: 2022 6:47 PM, LOCATION [facility] INDICATION: Z93.1: Presence of externally removable percutaneous [...] queried.. > Dictated by Tim Major MD (president mortgage company). I, Pepe Gonzalez MD have personallyreviewed and interpreted this examination/study. > Interpreting Provider: Pepe Gonzalez MD on 11/02/2022 1:[address] ABDOMEN PELVIS W CONTRAST Result Date: 10/31/2022 PROCEDURE: CT ABDOMEN PELVIS W CONTRAST, DATE/TIME OF EXAM: 10/31/2022 10:16 AM, LOCATION [facility] INDICATION: I33.0: Aortic valve vegetation ADDITIONAL CLINICAL [...] DATE/TIME OF EXAM: 10/30/2022 8:22 PM, LOCATION: [facility] HISTORY: I63.511: Right middle cerebral artery stroke [...] frontal gyrus/frontal operculum, consistent with an evolving ljtipqqm-vj-uniozsk infarct. 4.No significant midline shift. Similar-appearing size and configuration of the ventricles without evidence of hydrocephalus. Basal cisterns are patent. 5.No other convincing change. Partially imaged left nasoenteric tube. > Interpreting Provider: Amanda Real MD, PhD on 10/31/2022 1:26 AM OR [facility] ANGIO TEAM Result Date: 10/30/2022 Fluoroscopy was used for this exam in the OR. Please see the Operative report. XR CHEST 1VW PORTABLE Result Date: 10/29/2022 PROCEDURE: XR CHEST 1VW PORTABLE, DATE/TIME OF EXAM: 10/29/2022 10:29 AM, LOCATION [facility] INDICATION: R09.02: Hypoxia ADDITIONAL CLINICAL INFORMATION: Ordering Provider Reason For Exam: evaluate for hypoxia COMPARISON: Chest x-ray from 10/27/2022 FINDINGS/IMPRESSION: Enteric tube is seen coursing over the diaphragm without visualization of the distal tip. There is no focal consolidation, pleural effusion, or pneumothorax. The cardiomediastinal silhouette is normal. Report dictated by Jacques Russell DO (president mortgage company). Jacques Ornelas DO have personally reviewed and interpreted this examination/study. 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 Report dictated by Jacques Russell DO (president mortgage company). Jacques Ornelas DO have personally reviewed and interpreted this examination/study. 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 FINDINGS/IMPRESSION: Enteric tube courses below the diaphragm with the distal tip superimposing the antropyloric region. Report dictated by Martell Shetty MD (president mortgage company). Jacques Ornelas DO have personally reviewed and interpreted this examination/study. > Interpreting Provider: Jacques Cole DO on 10/28/2022 12:[address] HEAD WO CONTRAST Result Date: 10/28/2022 PROCEDURE: CT HEAD WO CONTRAST, DATE/TIME OF EXAM: 10/28/2022 5:28 AM, LOCATION [facility] INDICATION: Z91.89: At high risk for bleeding [...] report is dictated by Kayla Stevenson MD (president mortgage company) 1 ILonnie MD have personally reviewed and interpreted this examination/study. > Interpreting Provider: Lonnie Rae MD on 10/28/2022 9:15 AM XR CHEST 1VW PORTABLE Result Date: 10/27/2022 PROCEDURE: XR CHEST 1VW PORTABLE, DATE/TIME OF EXAM: 10/27/2022 10:19 AM, LOCATION [facility] INDICATION: D72.829: Leukocytosis, unspecified type ADDITIONAL CLINICAL INFORMATION: Ordering Provider Reason For Exam: any concern for pneumonia COMPARISON: Chest radiograph dated 10/25/2022. FINDINGS/IMPRESSION: Enteric tube courses below the diaphragm and out of the odqxl-sl-rxfc. RUQ surgical clips are present. No focal consolidation. No pleural effusion or pneumothorax. The cardiomediastinal silhouette is normal. Report dictated by Agnes Olmos DO (president mortgage company). IPepe MD have personally reviewed and interpreted this examination/study. 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 Enteric tube courses below the diaphragm and out of the wnyxy-et-tznx. There is severe left rotation of the patient in this study. There is no focal consolidation, pleural effusion, or pneumothorax. The left upper lobe pulmonary nodule noted on chest CT from same day is not visualized on this plain film. The cardiomediastinal silhouette is normal. The visible bony thorax is intact. Report dictated by Royer Stovall MD (president mortgage company). I, Alexx Lopez have personally reviewed and interpreted this examination/study. > Interpreting Provider: Alexx Lopez on 10/26/2022 2:[address] HEAD WO CONTRAST Result Date: 10/26/2022 PROCEDURE: CT HEAD WO CONTRAST, DATE/TIME OF EXAM: 10/26/2022 4:55 AM, LOCATION [facility] INDICATION: I63.511: Right middle cerebral artery stroke [...] report is dictated by Miranda Bowen MD (president mortgage company) IOriana MD have personally reviewed and interpreted this examination/study. > Interpreting Provider: Oriana Suraez MD on 38:[address] CHEST ABDOMEN PELVIS W CONT Result Date: 10/25/2022 PROCEDURE: CT CHEST ABDOMEN PELVIS W CONT, DATE/TIME OF EXAM: 10/25/2022 12:56 PM, LOCATION [facility] INDICATION: I63.511: Right middle [...] verification. > Dictated by Clarisa Cantrell MD (president mortgage company). I, Alexx Lopez have personally reviewed and interpreted this examination/study. > Interpreting Provider: Alexx Lopez on 10/25/2022 4:[address] HEAD WO CONTRAST Result Date: 10/25/2022 PROCEDURE: CT HEAD WO CONTRAST, DATE/TIME OF EXAM: 10/25/2022 12:56 PM, LOCATION [facility] INDICATION: I63.511: Right middle cerebral [...] report is dictated by Miranda Bowen MD (president mortgage company) IJoni MD have personally reviewed and interpreted this examination/study. > Interpreting Provider: Joni Fabian MD on 10/25/2022 2:[address] CARDIAC ANGIO STRUCT MORPH Result Date: 10/25/2022 PROCEDURE: CT CARDIAC ANGIO STRUCT MORPH, DATE/TIME OF EXAM: 10/23/2022 3:08 PM, LOCATION [facility] INDICATION: I63.411: Acute cerebrovascular accident (CVA) due [...] DATE/TIME OF EXAM: 10/24/2022 2:04 PM, LOCATION [facility] INDICATION: R47.1: Dysarthria ADDITIONAL CLINICAL INFORMATION: Ordering Provider ReasonFor Exam: ngt placement COMPARISON: Portable KUB dated 10/23/2022 FINDINGS/IMPRESSION: The enteric tube courses below the diaphragm with tip superimposing the gastric pyloric region. Drafted by Agnes Olmos DO (president mortgage company). I, Vanessa Kumar MD have personally reviewed and interpreted this examination/study. > Interpreting Provider: Vanessa Kumar MD on 10/24/2022 2:17 PM MRI BRAIN WWO CONTRAST Result Date: 10/24/2022 PROCEDURE: MRI BRAIN WWO CONTRAST, DATE/TIME OF EXAM: 10/24/2022 10:56 AM, LOCATION [facility] INDICATION: I63.411: Acute cerebrovascular accident (CVA) due [...] right lateral ventricle, and approximately 3-4 mm daoid-dm-phnf midline shift at the level of the [...] right lateral ventricle, and approximately 3-4 mm dadgv-lf-ptfp midline shift, grossly similar to the prior. [...] verification. Report dictated by Tim Major MD (president mortgage company). Jasper Ornelas MD have personally reviewed and interpreted this examination/study. 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 Endotracheal tube terminates in the midthoracic trachea. There is no focal consolidation. No pleural effusion or pneumothorax. The cardiomediastinal silhouette is normal. No acute osseous abnormality. Report dictated by Agens Olmos DO (president mortgage company). Vanessa Ornelas MD have personally reviewed and [...] DATE/TIME OF EXAM: 10/23/2022 1:53 PM, LOCATION [facility] INDICATION: R47.1: Dysarthria ADDITIONAL CLINICAL INFORMATION: Ordering Provider ReasonFor Exam: NGT placement COMPARISON: Portable KUB dated 10/20/2022 FINDINGS/IMPRESSION: The enteric tube courses below the diaphragm with tip superimposing the stomach. Drafted by Agnes Olmos DO (president mortgage company). I, Vanessa Kumar MD have personally reviewed and interpreted this examination/study. 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 ILonnie MD have personally reviewed and interpreted this examination/study. > Interpreting Provider: Lonnie Rae MD on 10/22/2022 3:10 PM XR CHEST 1VW PORTABLE Result Date: 10/21/2022 PROCEDURE: XR CHEST 1VW PORTABLE, DATE/TIME OF EXAM: 10/21/2022 8:53 AM, LOCATION [facility] INDICATION: R53.1: Weakness ADDITIONAL CLINICAL INFORMATION: Ordering [...] Report dictated by Christopher Tobin MD, MD (president mortgage company). I, HEATHER FREGOSO MD have personally reviewed [...] DATE/TIME OF EXAM: 10/20/2022 9:13 PM, LOCATION [facility] INDICATION: I63.411: Acute cerebrovascular accident (CVA) due to embolism of right middle cerebral artery (CMS/HCC) ADDITIONAL CLINICAL INFORMATION: Ordering Provider Reason For Exam: [facility] COMPARISON: Multiple prior studies, most [...] effacement, effacement of theright lateral ventricle, and euhra-cb-inmp midline shift measuring up to 4 mm [...] Dictated by Bassam Jovel M.D. (vice president regulatory) Gonzalez Ornelas MD have personally reviewed and [...] body. Report dictated by Royer Stovall MD (president mortgage company). Amanda Ornelas MD have personally reviewed and [...] DATE/TIME OF EXAM: 10/19/2022 8:16 AM, LOCATION [facility] INDICATION: Code Stroke ADDITIONAL CLINICAL INFORMATION: Ordering [...] DATE/TIME OF EXAM: 10/19/2022 8:04 AM, LOCATION [facility] INDICATION: Code Stroke ADDITIONAL CLINICAL INFORMATION: Ordering [...] Baig MD - 11/13/2022 2:12 PM CDT [facility] Patient: Consuelo Darby Age: [age] year old Date of : 1980 Date of Admission: 10/19/2022 Date: 11/13/2022 Reason for consult: elevated liver enzymes Consult team: Neuro stroke HISTORY: I saw . Consuelo Darby in consultation at [facility] on 11/13/2022 for evaluation of her elevated [...] Coagulation Panel: Recent Labs Component Name 11/13/2220911/12/22 0511/11/22 2351 11/11/22 1703 11/11/22 0928 PT 17.7* [...] input(s): CKTOTAL, CKMB, TROPONINI in the last 22686 hours. Invalid input(s): CKMBINDEX Lipid Panel: Recent [...] Triana COTA - 11/13/2022 1:20 PM CDT [facility] Occupational Therapy Splint [...] so splint re-applied. AMBROSE richards. Treatment Plan: Sap Sd Analyst education completed. and Will continue to monitor [...] Pizarro, PT - 11/13/2022 10:25 AM CDT [facility] Physical Medicine and Rehabilitation Physical Therapy Progress Note Patient: Consuelo Darby Med Record Number: [id number] Date of : 1980 Age: [age] year [...] focus on posture and head/trunk alignment Modified Gove: Current Modified Maryann Score: 5 AM-PAC 6 [...] sit EOB x10 minutes with minimal assist Slat Basket Maker Helper Machine Goal(s): Patient to discharge to appropriate next [...] Parks MD - 11/13/2022 8:36 AM CDT [facility] Infectious Diseases Progress Note Date of Admission: 10/19/2022 7:53 AM Length of Stay: Day 25 Room: [facility] Attending: Good Antunez MD Subjective Since [...] Doxycycline 11/05 - present Prior Antibiotics At [facility] Cefazolin 10/20 Vancomycin 10/20; 10/25 [...] Name 11/13/22 0210 11/12/22 0532 11/11/22 1703 09/01/22211/09/22 0654 NA 138 136 140 - - [...] not displayed. Coagulation: Recent Labs Component Name 11/13/2220911/12/22 0532 11/11/22 2351 11/11/22 1703 11/11/22 0928 [...] DVT At this time most concerning for -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 infection, MRI cannot rule out cerebritis/meningitis, needs [...] Liam Parks MD (PGY-5) Infectious Diseases Fellow [facility] Pager: [phone] ID Clinic Associated attestation - Gilberto Pastrana MD - 11/13/2022 5:57 PM CDT I have reviewed the record and independently examined the patient. I agree with the findings and plan of care as documented by the customs house broker. Consuelo Darby is a 42 year old [...] 99.1 ??F (37.3 ??C) 100 -- 111/57 09/03/23 1919 99.6 ??F (37.6 ??C) -- -- -- 11/12/22 1719 (!) 100.3 ??F (37.9 ??C) -- -- -- 11/12/22 1553 (!) 102.9 ??F (39.4 ??C) (!) 119 19 135/70 11/12/22 1347 99.8 ??F (37.7 ??C) 103 -- 100/77 11/12/22 1156 (!) 102.6 ??F (39.2 ??C) 106 17 93/70 11/12/22 1058 (!) 102.2 ??F (39 ??C) -- -- -- Recent Labs Component Name 11/13/2220911/12/22 0511/11/22 170 NA 138 136 140 CL 107 105 108* CO2 23 21* 22 BUN 11 13 11 CREATININE 0.54* 0.59 0.56 CALCIUM 8.1* 7.8* 8.4 PHOS 3.9 2.5* 3.3 Recent Labs Component Name 11/13/22 0210 11/12/22 0532 11/11/22 17010/23/22 0129 10/22/22 0153 WBC [...] Chin OT - 11/12/2022 3:59 PM CDT [facility] Occupational Therapy Splint [...] results for input(s): MG in the last 02219 hours. Recent Labs Component Name 11/12/2253111/11/22170211/10/22222 PHOS 2.5* 3.3 3.9 Recent Labs Component Name 11/12/22 0532 11/11/22 23511/11/22170211/11/22 0928 11/10/22 2338 PT 22.1* - - 16.2* 15.6* INR 2.0 - - 1.3 1.3 PTT 102.7* 78.8* 140.8* 129.8* 36.3 No results for input(s): A1C in the last 60148 hours. Recent Labs Component Name 10/20/22 0302 06/15/22 0757 CHOL 173 204* HDL 42 37* LDLCALC 91 117* TRIG 201* 251* Recent Labs Component Name 11/06/22 0136 TSH 1.682 No results for input(s): CKMB, CKTOTAL, CKMB, TROPONINI, BNP in the last 38266 hours. MRI BRAIN WWO CONTRAST Result Date: 11/10/2022 PROCEDURE: MRI BRAIN WWO CONTRAST, DATE/TIME OF EXAM: 11/09/2022 11:51 PM, LOCATION [facility] INDICATION: R50.9: Fever, unspecified fever cause ADDITIONAL [...] of the right lateral ventricle and the wogtp-xx-trag midline shift. Extensive susceptibility artifacts along the [...] DATE/TIME OF EXAM: 11/07/2022 5:25 PM, LOCATION [facility] INDICATION: R50.9: Fever, unspecified fever cause ADDITIONAL [...] chest. > Dictated by Tim Major MD (president mortgage company). I, Alexx Lopez have personally reviewed and [...] Time to Reperfusion: 9:54 Final TICI: 2b Satellite Installation Technician: Dr. Mitali Walter Bill Poster Installer(s): Isak Monte Vessels: Ultrasound Guided Access of Femoral Artery Ultrasound Guided Access of Radial Artery Arterial line placement in the right radial artery Right Common Carotid Artery Angiogram: Cerebral Intracranial Catheterization Mechanical Thrombectomy with Retrievable Stent and Reperfusion Catheter Angiography Through the Existing Catheter Right Femoral Artery Angiogram Anesthesia: General Anesthesia was performed and monitored by an attending Anesthesiologist and their res habilitation assistant throughout the entirety of the case [...] artery demonstrated a patent vessel. A 5 togolese sheath was placed in the radial artery [...] Following a series of exchanges, a 8 Micronesian sheath sheath was placed in the right femoralartery. A Guide and a 6 Micronesian Penumbra Select Serrano 2 catheter along with [...] system. Hemostasis was achieved using a 8 Micronesian Angio-Seal closure device. Hemostasis was immediate at [...] DATE/TIME OF EXAM: 11/05/2022 5:28 PM, LOCATION [facility] INDICATION: R50.9: Fever, unspecified fever cause ADDITIONAL [...] pattern. Report dictated by Mc Castro MD, (president mortgage company). I, Pepe Gonzalez MD have personally reviewed [...] DATE/TIME OF EXAM: 11/05/2022 9:38 AM, LOCATION [facility] INDICATION: R50.9: Fever, unspecified fever cause ADDITIONAL CLINICAL INFORMATION: Ordering Provider Reason For Exam: consolidation COMPARISON: Chest radiograph 10/29/2022. FINDINGS/IMPRESSION: Previously seen feeding tube has been removed. These no confluent consolidation, pleural effusion, or pneumothorax is noted. The cardiomediastinal silhouette is stable. No acute osseous abnormality is noted. Report dictated by Christopher Tobin MD, MD (president mortgage company). I, HEATHER FREGOSO MD have personally reviewed and interpreted this examination/study. > Interpreting Provider: HEATHER FREGOSO MD on 11/05/2022 2:[address] ABDOMEN WO CONTRAST Result Date: 11/02/2022 PROCEDURE: CT ABDOMEN WO CONTRAST, DATE/TIME OF EXAM: 2022 6:47 PM, LOCATION [facility] INDICATION: Z93.1: Presence of externally removable percutaneous [...] queried.. > Dictated by Tim Major MD (president mortgage company). I, Pepe Gonzalez MD have personallyreviewed and interpreted this examination/study. > Interpreting Provider: Pepe Gonzalez MD on 11/02/2022 1:[address] ABDOMEN PELVIS W CONTRAST Result Date: 10/31/2022 PROCEDURE: CT ABDOMEN PELVIS W CONTRAST, DATE/TIME OF EXAM: 10/31/2022 10:16 AM, LOCATION [facility] INDICATION: I33.0: Aortic valve vegetation ADDITIONAL CLINICAL [...] DATE/TIME OF EXAM: 10/30/2022 8:22 PM, LOCATION: [facility] HISTORY: I63.511: Right middle cerebral artery stroke [...] frontal gyrus/frontal operculum, consistent with an evolving ulkaqmde-gf-tzansui infarct. 4.No significant midline shift. Similar-appearing size [...] DATE/TIME OF EXAM: 10/29/2022 10:29 AM, LOCATION [facility] INDICATION: R09.02: Hypoxia ADDITIONAL CLINICAL INFORMATION: Ordering Provider Reason For Exam: evaluate for hypoxia COMPARISON: Chest x-ray from 10/27/2022 FINDINGS/IMPRESSION: Enteric tube is seen coursing over the diaphragm without visualization of the distal tip. There is no focal consolidation, pleural effusion, or pneumothorax. The cardiomediastinal silhouette is normal. Report dictated by Jacques Russell DO (president mortgage company). Jacques Ornelas DO have personally reviewed and interpreted this examination/study. 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 Report dictated by Jacques Rsusell DO (president mortgage company). Jacques Ornelas DO have personally reviewed and interpreted this examination/study. 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 FINDINGS/IMPRESSION: Enteric tube courses below the diaphragm with the distal tip superimposing the antropyloric region. Report dictated by Martell Shetty MD (president mortgage company). Jacques Ornelas DO have personally reviewed and interpreted this examination/study. > Interpreting Provider: Jacques Cole DO on 10/28/2022 12:[address] HEAD WO CONTRAST Result Date: 10/28/2022 PROCEDURE: CT HEAD WO CONTRAST, DATE/TIME OF EXAM: 10/28/2022 5:28 AM, LOCATION [facility] INDICATION: Z91.89: At high risk for bleeding [...] report is dictated by Kayla Stevenson MD (president mortgage company) 1 I, Lonnie Rae MD have personally reviewed and interpreted this examination/study. > Interpreting Provider: Lonnie Rae MD on 10/28/2022 9:15 AM XR CHEST 1VW PORTABLE Result Date: 10/27/2022 PROCEDURE: XR CHEST 1VW PORTABLE, DATE/TIME OF EXAM: 10/27/2022 10:19 AM, LOCATION [facility] INDICATION: D72.829: Leukocytosis, unspecified type ADDITIONAL CLINICAL INFORMATION: Ordering Provider Reason For Exam: any concern for pneumonia COMPARISON: Chest radiograph dated 10/25/2022. FINDINGS/IMPRESSION: Enteric tube courses below the diaphragm and out of the cgujw-cd-ejyz. RUQ surgical clips are present. No focal consolidation. No pleural effusion or pneumothorax. The cardiomediastinal silhouette is normal. Report dictated by Agnes Olmos DO (president mortgage company). I, Pepe Gonzalez MD have personally reviewed and interpreted this examination/study. 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 Enteric tube courses below the diaphragm and out of the jtjvv-gm-jkjr. There is severe left rotation of the patient in this study. There is no focal consolidation, pleural effusion, or pneumothorax. The left upper lobe pulmonary nodule noted on chest CT from same day is not visualized on this plain film. The cardiomediastinal silhouette is normal. The visible bony thorax is intact. Report dictated by Royer Stovall MD (president mortgage company). IAlexx have personally reviewed and interpreted this examination/study. > Interpreting Provider: Alexx Lopez on 10/26/2022 2:[address] HEAD WO CONTRAST Result Date: 10/26/2022 PROCEDURE: CT HEAD WO CONTRAST, DATE/TIME OF EXAM: 10/26/2022 4:55 AM, LOCATION [facility] INDICATION: I63.511: Right middle cerebral artery stroke [...] report is dictated by Miranda Bowen MD (president mortgage company) Oriana Ornelas MD have personally reviewed and interpreted this examination/study. > Interpreting Provider: Oriana Suarez MD on 38:[address] CHEST ABDOMEN PELVIS W CONT Result Date: 10/25/2022 PROCEDURE: CT CHEST ABDOMEN PELVIS W CONT, DATE/TIME OF EXAM: 10/25/2022 12:56 PM, LOCATION [facility] INDICATION: I63.511: Right middle [...] verification. > Dictated by Clarisa Cantrell MD (president mortgage company). I, Alexx Lopez have personally reviewed and interpreted this examination/study. > Interpreting Provider: Alexx Lopez on 10/25/2022 4:[address] HEAD WO CONTRAST Result Date: 10/25/2022 PROCEDURE: CT HEAD WO CONTRAST, DATE/TIME OF EXAM: 10/25/2022 12:56 PM, LOCATION [facility] INDICATION: I63.511: Right middle cerebral [...] report is dictated by Miranda Bowen MD (president mortgage company) I, Joni Fabian MD have personally reviewed and interpreted this examination/study. > Interpreting Provider: Joni Fabian MD on 10/25/2022 2:[address] CARDIAC ANGIO STRUCT MORPH Result Date: 10/25/2022 PROCEDURE: CT CARDIAC ANGIO STRUCT MORPH, DATE/TIME OF EXAM: 10/23/2022 3:08 PM, LOCATION [facility] INDICATION: I63.411: Acute cerebrovascular accident (CVA) due [...] DATE/TIME OF EXAM: 10/24/2022 2:04 PM, LOCATION [facility] INDICATION: R47.1: Dysarthria ADDITIONAL CLINICAL INFORMATION: Ordering Provider ReasonFor Exam: ngt placement COMPARISON: Portable KUB dated 10/23/2022 FINDINGS/IMPRESSION: The enteric tube courses below the diaphragm with tip superimposing the gastric pyloric region. Drafted by Agnes Olmos DO (president mortgage company). I, Vanessa Kumar MD have personally reviewed and interpreted this examination/study. > Interpreting Provider: Vanessa Kumar MD on 10/24/2022 2:17 PM MRI BRAIN WWO CONTRAST Result Date: 10/24/2022 PROCEDURE: MRI BRAIN WWO CONTRAST, DATE/TIME OF EXAM: 10/24/2022 10:56 AM, LOCATION [facility] INDICATION: I63.411: Acute cerebrovascular accident (CVA) due [...] right lateral ventricle, and approximately 3-4 mm ohtww-cb-pvca midline shift at the level of the [...] right lateral ventricle, and approximately 3-4 mm ujkdo-uz-fewo midline shift, grossly similar to the prior. [...] verification. Report dictated by Tim Major MD (president mortgage company). I, Jasper Sifuentes MD have personally reviewed and interpreted this examination/study. 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 Endotracheal tube terminates in the midthoracic trachea. There is no focal consolidation. No pleural effusion or pneumothorax. The cardiomediastinal silhouette is normal. No acute osseous abnormality. Report dictated by Agnes Olmos DO (president mortgage company). Vanessa Ornelas MD have personally reviewed and [...] DATE/TIME OF EXAM: 10/23/2022 1:53 PM, LOCATION [facility] INDICATION: R47.1: Dysarthria ADDITIONAL CLINICAL INFORMATION: Ordering Provider Reason For Exam: NGT placement COMPARISON: Portable KUB dated 10/20/2022 FINDINGS/IMPRESSION: The enteric tube courses below the diaphragm with tip superimposing the stomach. Drafted by Agnes Olmos DO (president mortgage company). Vanessa Ornelas MD have personally reviewed and interpreted thisexamination/study. 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 Lonnie Ornelas MD have personally reviewed and interpreted this examination/study. > Interpreting Provider: Lonnie Rae MD on 10/22/2022 3:10 PM XR CHEST 1VW PORTABLE Result Date: 10/21/2022 PROCEDURE: XR CHEST 1VW PORTABLE, DATE/TIME OF EXAM: 10/21/2022 8:53 AM, LOCATION [facility] INDICATION: R53.1: Weakness ADDITIONAL CLINICAL INFORMATION: Ordering [...] Report dictated by Christopher Tobin MD, MD (president mortgage company). HEATHER Ornelas MD have personally reviewed and [...] DATE/TIME OF EXAM: 10/20/2022 9:13 PM, LOCATION [facility] INDICATION: I63.411: Acute cerebrovascular accident (CVA) due to embolism of right middle cerebral artery (CMS/HCC) ADDITIONAL CLINICAL INFORMATION: Ordering Provider Reason For Exam: [facility] COMPARISON: Multiple prior studies, most [...] effacement, effacement of theright lateral ventricle, and uympq-vk-xydd midline shift measuring up to 4 mm [...] Dictated by Bassam Jovel M.D. (vice president regulatory) I, Gonzalez Velasco MD have personally reviewed [...] the gastric body. Report dictated by Royer Stovlal MD (president mortgage company). I, Amanda Prieto MD have personally reviewed [...] DATE/TIME OF EXAM: 10/19/2022 8:16 AM, LOCATION [facility] INDICATION: Code Stroke ADDITIONAL CLINICAL INFORMATION: Ordering [...] DATE/TIME OF EXAM: 10/19/2022 8:04 AM, LOCATION [facility] INDICATION: Code Stroke ADDITIONAL CLINICAL INFORMATION: Ordering [...] tube (CMS/HCC) (POA: Unknown) Assessment Consuelo Dayami Rickdaniel??is a 41 year old??female who??presented on [...] common femoral thrombectomy and patch angioplasty by [facility] surgery - Vascular Sx reconsulted for hematoma: [...] Cruz MD - 11/12/2022 7:47 AM CDT [facility] Progress Note Admitted on: 10/19/2022 7:53 AM Hospital stay: Day Room: [facility]/ Attending: Good Antunez MD Reason for ID [...] Intake/Output Summary (Last 24 hours) at 11/12/2022 0722 Last data filed at 11/12/2022 0529 Gross [...] LP with CSF analysis to eval of 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 infection, neurosurgery initially had less suspicion of 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 infection, LP was deferred. Discussed again today. [...] ??? S/p 10/20 with neurosurgery for R sided??rsdabf-muphhdm-icpayfrg??decompressive sonya-craniectomy??for??treatment of??refractory intracranial hypertension. 7. Renal function: [...] team. Angelica Cruz M.D. Infectious Diseases Pager [phone] * Ventura Zendejas Jr., PharmD - 11/12/2022 [...] 36.05 kg/m??. Serum creatinine: 0.52 mg/dL (L) 11/10/223 Estimated creatinine clearance: 161 mL/min (A) * [...] 11/10/222314 125/79 -- -- 107 -- -- 11/10/22 [...] -- (!) 113 (!) 33 100 % 11/10/225 136/41 99.4 ??F (37.4 ??C) Temporal (!) 114 26 100 % 11/10/22 1900 -- -- -- -- -- 94 % 11/10/22 1855 117/69 -- -- 105 21 91 % 11/10/22 184 -- -- -- 102 18 95 % 09/01/23 1839 115/59 (!) 102 ??F (38.9 ??C) [...] results for input(s): MG in the last 91005 hours. Recent Labs Component Name 11/10/2222211/08/22234511/07/22 2234 PHOS 3.9 3.8 4.3 Recent Labs Component Name 11/11/22 0928 11/10/22 2338 11/10/22 0223 11/07/22 0305 11/06/22 2312 PT 16.2* 15.6* 20.5* - - INR 1.3 1.3 1.8 - - PTT 129.8* 36.3 - - 63.4* - = values in this interval not displayed. No results for input(s): A1C in the last 23129 hours. Recent Labs Component Name 10/20/22 0302 06/15/22 0757 CHOL 173 204* HDL 42 37* LDLCALC 91 117* TRIG 201* 251* Recent Labs Component Name 11/06/22 0136 TSH 1.682 No results for input(s): CKMB, CKTOTAL, CKMB, TROPONINI, BNP in the last 99523 hours. MRI BRAIN WWO CONTRAST Result Date: 11/10/2022 PROCEDURE: MRI BRAIN WWO CONTRAST, DATE/TIME OF EXAM: 11/09/2022 11:51 PM, LOCATION [facility] INDICATION: R50.9: Fever, unspecified fever cause ADDITIONAL [...] of the right lateral ventricle and the hzxxm-cd-jaur midline shift. Extensive susceptibility artifacts along the [...] DATE/TIME OF EXAM: 11/07/2022 5:25 PM, LOCATION [facility] INDICATION: R50.9: Fever, unspecified fever cause ADDITIONAL [...] chest. > Dictated by Tim Major MD (president mortgage company). I, Alexx Lopez have personally reviewed and [...] Time to Reperfusion: 9:54 Final TICI: 2b Satellite Installation Technician: Dr. Mitali Walter Bill Poster Installer(s): Isak Monte Vessels: Ultrasound Guided Access of Femoral Artery Ultrasound Guided Access of Radial Artery Arterial line placement in the right radial artery Right Common Carotid Artery Angiogram: Cerebral Intracranial Catheterization Mechanical Thrombectomy with Retrievable Stent and Reperfusion Catheter Angiography Through the Existing Catheter Right Femoral Artery Angiogram Anesthesia: General Anesthesia was performed and monitored by an attending Anesthesiologist and their res habilitation assistant throughout the entirety of the case Procedural Detail: The risks, benefits, and alternatives to procedure were discussed in detail with the patient and her family. These included but were not limited to the risk of blood loss, vessel injury, stroke, renal injury, and contrast allergy. The patient was brought to the biplaneangiography suite where she underwent prep and drape procedures. Limited ultrasound of the right radial artery demonstrated a patent vessel. A 5 togolese sheath was placed in the radial artery [...] Following a series of exchanges, a 8 Micronesian sheath sheath was placed in the right femoral artery. A Guide and a 6 Micronesian [employer] 2 catheter along with a [...] catheter were then removed from the arterial s ystem. The same procedure was performed for a second time. An angiogram through the existing catheter was performed. The right femoral artery angiogram was obtained through the sheath. All catheters and sheaths were removed from the arterial system. Hemostasis was achieved using a 8 Micronesian Angio-Seal closure device. Hemostasis was immediate at [...] DATE/TIME OF EXAM: 11/05/2022 5:28 PM, LOCATION [facility] INDICATION: R50.9: Fever, unspecified fever cause ADDITIONAL [...] pattern. Report dictated by Mc Castro MD, (president mortgage company). I, Pepe Gonzalez MD have personally reviewed [...] DATE/TIME OF EXAM: 11/05/2022 9:38 AM, LOCATION [facility] INDICATION: R50.9: Fever, unspecified fever cause ADDITIONAL CLINICAL INFORMATION: Ordering Provider Reason For Exam: consolidation COMPARISON: Chest radiograph 10/29/2022. FINDINGS/IMPRESSION: Previously seen feeding tube has been removed. These no confluent consolidation, pleural effusion, or pneumothorax is noted. The cardiomediastinal silhouette is stable. No acute osseous abnormality is noted. Report dictated by Christopher Tobin MD, (president mortgage company). I, HEATHER FREGOSO MD have personally reviewed and interpreted this examination/study. > Interpreting Provider: HEATHER FREGOSO MDon 11/05/2022 2:[address] ABDOMEN WO CONTRAST Result Date: 11/02/2022 PROCEDURE: CT ABDOMEN WO CONTRAST, DATE/TIME OF EXAM: 2022 6:47 PM, LOCATION [facility] INDICATION: Z93.1: Presence of externally removable percutaneous [...] queried.. > Dictated by Tim Major MD (president mortgage company). I, Pepe Gonzalez MD have personallyreviewed and interpreted this examination/study. > Interpreting Provider: Pepe Gonzalez MD on 11/02/2022 1:[address] ABDOMEN PELVIS W CONTRAST Result Date: 10/31/2022 PROCEDURE: CT ABDOMEN PELVIS W CONTRAST, DATE/TIME OF EXAM: 10/31/2022 10:16 AM, LOCATION [facility] INDICATION: I33.0: Aortic valve vegetation ADDITIONAL CLINICAL [...] DATE/TIME OF EXAM: 10/30/2022 8:22 PM, LOCATION: [facility] HISTORY: I63.511: Right middle cerebral artery stroke [...] frontal gyrus/frontal operculum, consistent with an evolving zawxapzu-se-fyqaiqe infarct. 4.No significant midline shift. Similar-appearing size and configuration of the ventricles without evidence of hydrocephalus. Basal cisterns are patent. 5.No other convincing change. Partially imaged left nasoenteric tube. > Interpreting Provider: Amanda Real MD, PhD on 10/31/2022 1:26 AM OR GLENN Farhad ANGIO TEAM Result Date: 10/30/2022 Fluoroscopy was used for this exam in the OR. Please see the Operative report. XR CHEST 1VW PORTABLE Result Date: 10/29/2022 PROCEDURE: XR CHEST 1VW PORTABLE, DATE/TIME OF EXAM: 10/29/2022 10:29 AM, LOCATION [facility] INDICATION: R09.02: Hypoxia ADDITIONAL CLINICAL INFORMATION: Ordering Provider Reason For Exam: evaluate for hypoxia COMPARISON: Chest x-ray from 10/27/2022 FINDINGS/IMPRESSION: Enteric tube is seen coursing over the diaphragm without visualization of the distal tip. There is no focal consolidation, pleural effusion, or pneumothorax. The cardiomediastinal silhouette is normal. Report dictated by Jacques Russell DO (president mortgage company). Jacques Ornelas DO have personally reviewed and interpreted this examination/study. 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 Report dictated by Jacques Russell DO (president mortgage company). Jacques Ornelas DO have personally reviewed and interpreted this examination/study. 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 FINDINGS/IMPRESSION: Enteric tube courses below the diaphragm with the distal tip superimposing the antropyloric region. Report dictated by Martell Shetty MD (president mortgage company). I, Jacques Cole DO have personally reviewed and interpreted this examination/study. > Interpreting Provider: Jacques Cole DO on 10/28/2022 12:[address] HEAD WO CONTRAST Result Date: 10/28/2022 PROCEDURE: CT HEAD WO CONTRAST, DATE/TIME OF EXAM: 10/28/2022 5:28 AM, LOCATION [facility] INDICATION: Z91.89: At high risk for bleeding [...] report is dictated by Kayla Stevenson MD (president mortgage company) 1 Lonnie Ornelas MD have personally reviewed and interpreted this examination/study. > Interpreting Provider: Lonnie Rae MD on 10/28/2022 9:15 AM XR CHEST 1VW PORTABLE Result Date: 10/27/2022 PROCEDURE: XR CHEST 1VW PORTABLE, DATE/TIME OF EXAM: 10/27/2022 10:19 AM, LOCATION [facility] INDICATION: D72.829: Leukocytosis, unspecified type ADDITIONAL CLINICAL INFORMATION: Ordering Provider Reason For Exam: any concern for pneumonia COMPARISON: Chest radiograph dated 10/25/2022. FINDINGS/IMPRESSION: Enteric tube courses below the diaphragm and out of the hpopt-dg-mxvg. RUQ surgical clips are present. No focal consolidation. No pleural effusion or pneumothorax. The cardiomediastinal silhouette is normal. Report dictated by Agnes Olmos DO (president mortgage company). IPepe MD have personally reviewed and interpreted this examination/study. > Interpreting Provider: Pepe Gonzalez MD on 10/27/2022 2:[address] HEAD WO CONTRAST Result Date: 10/27/2022 PROCEDURE: CT HEAD WO CONTRAST, DATE/TIME OF EXAM: 10/27/2022 5:54 AM, LOCATION [facility] INDICATION: I63.511: Right middle cerebral artery stroke [...] DATE/TIME OF EXAM: 10/25/2022 9:41 AM, LOCATION [facility] INDICATION: I63.511: Right middle cerebral artery stroke ([facility]/HCC) ADDITIONAL CLINICAL INFORMATION: Ordering Provider Reason For Exam: Atlectasis/mucus plugging Comparison: Chest x-ray from10/23/2022, and CT chest, abdomen, pelvis from same day FINDINGS/IMPRESSION: Interval removal of theendotracheal tube. Enteric tube courses below the diaphragm and out of the ncaew-kz-chal. There is severe left rotation of the patient in this study. There is no focal consolidation, pleural effusion, or pneumothorax. The left upper lobe pulmonary nodule noted on chest CT from same day is not visualized on this plain film. The cardiomediastinal silhouette is normal. The visible bony thorax is intact. Report dictated by Royer Stovall MD (president mortgage company). IAlexx have personally reviewed and interpreted this examination/study. > Interpreting Provider: Alexx Lopez on 10/26/2022 2:[address] HEAD WO CONTRAST Result Date: 10/26/2022 PROCEDURE: CT HEAD WO CONTRAST, DATE/TIME OF EXAM: 10/26/2022 4:55 AM, LOCATION [facility] INDICATION: I63.511: Right middle cerebral artery stroke ([facility]) ADDITIONAL CLINICAL INFORMATION: Ordering Provider Reason [...] report is dictated by Miranda Bowen MD (president mortgage company) I, Oriana Suarez MD have personally reviewed and interpreted this examination/study. > Interpreting Provider: Oriana Suarez MD on 38:[address] CHEST ABDOMEN PELVIS W CONT Result Date: 10/25/2022 PROCEDURE: CT CHEST ABDOMEN PELVIS W CONT, DATE/TIME OF EXAM: 10/25/2022 12:56 PM, LOCATION [facility] INDICATION: I63.511: Right middle [...] verification. > Dictated by Clarisa Cantrell MD (president mortgage company). I, Alexx Lopez have personally reviewed and interpreted this examination/study. > Interpreting Provider: Alexx Lopez on 10/25/2022 4:[address] HEAD WO CONTRAST Result Date: 10/25/2022 PROCEDURE: CT HEAD WO CONTRAST, DATE/TIME OF EXAM: 10/25/2022 12:56 PM, LOCATION [facility] INDICATION: I63.511: Right middle cerebral [...] report is dictated by Miranda Bowen MD (president mortgage company) I, Joni Fabian MD have personally reviewed and interpreted this examination/study. > Interpreting Provider: Joni Fabian MD on 10/25/2022 2:[address] CARDIAC ANGIO STRUCT MORPH Result Date: 10/25/2022 PROCEDURE: CT CARDIAC ANGIO STRUCT MORPH, DATE/TIME OF EXAM: 10/23/2022 3:08 PM, LOCATION [facility] INDICATION: I63.411: Acute cerebrovascular accident (CVA) due [...] DATE/TIME OF EXAM: 10/24/2022 2:04 PM, LOCATION [facility] INDICATION: R47.1: Dysarthria ADDITIONAL CLINICAL INFORMATION: Ordering Provider ReasonFor Exam: ngt placement COMPARISON: Portable KUB dated 10/23/2022 FINDINGS/IMPRESSION: The enteric tube courses below the diaphragm with tip superimposing the gastric pyloric region. Drafted by Agnes Olmos DO (president mortgage company). I, Vanessa Kumar MD have personally reviewed and interpreted this examination/study. > Interpreting Provider: Vanessa Kumar MD on 10/24/2022 2:17 PM MRI BRAIN WWO CONTRAST Result Date: 10/24/2022 PROCEDURE: MRI BRAIN WWO CONTRAST, DATE/TIME OF EXAM: 10/24/2022 10:56 AM, LOCATION [facility] INDICATION: I63.411: Acute cerebrovascular accident (CVA) due [...] right lateral ventricle, and approximately 3-4 mm gqyzz-wz-cgjd midline shift at the level of the [...] right lateral ventricle, and approximately 3-4 mm ucdcr-zs-szbv midline shift, grossly similar to the prior. [...] verification. Report dictated by Tim Major MD (president mortgage company). I, Jasper Sifuentes MD have personally reviewed and interpreted this examination/study. 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 Endotracheal tube terminates in the midthoracic trachea. There is no focal consolidation. No pleural effusion or pneumothorax. The cardiomediastinal silhouette is normal. No acute osseous abnormality. Report dictated by Agnes Olmos DO (president mortgage company). IVanessa MD have personally reviewed and interpreted [...] DATE/TIME OF EXAM: 10/23/2022 1:53 PM, LOCATION [facility] INDICATION: R47.1: Dysarthria ADDITIONAL CLINICAL INFORMATION: Ordering Provider ReasonFor Exam: NGT placement COMPARISON: Portable KUB dated 10/20/2022 FINDINGS/IMPRESSION: The enteric tube courses below the diaphragm with tip superimposing the stomach. Drafted by Agnes Olmos DO (president mortgage company). I, Vanessa Kumar MD have personally reviewed and interpreted this examination/study. > Interpreting Provider: Vanessa Kumar MD on 10/24/2022 8:[address] HEAD WO CONTRAST Result Date: 10/23/2022 PROCEDURE: CT HEAD WO CONTRAST, DATE/TIME OF EXAM: 10/23/2022 5:53 AM, LOCATION [facility] INDICATION: I63.511: Right middle cerebral artery stroke [...] The report is dictated by Miranda Bowen MD(president mortgage company) I, Jasper Sifuentes MD have personally reviewed and interpreted this examination/study. 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 ILonnie MD have personally reviewed and interpreted this examination/study. > Interpreting Provider: Lonnie Rae MD on 10/22/2022 3:10 PM XR CHEST 1VW PORTABLE Result Date: 10/21/2022 PROCEDURE: XR CHEST 1VW PORTABLE, DATE/TIME OF EXAM: 10/21/2022 8:53 AM, LOCATION [facility] INDICATION: R53.1: Weakness ADDITIONAL CLINICAL INFORMATION: Ordering [...] Report dictated by Christopher Tobin MD, MD (president mortgage company). IHEATHER MD have personally reviewed and interpreted [...] DATE/TIME OF EXAM: 10/20/2022 9:13 PM, LOCATION [facility] INDICATION: I63.411: Acute cerebrovascular accident (CVA) due to embolism of right middle cerebral artery (CMS/HCC) ADDITIONAL CLINICAL INFORMATION: Ordering Provider Reason For Exam: [facility] COMPARISON: Multiple prior studies, most [...] effacement, effacement of theright lateral ventricle, and qvawa-mg-uvha midline shift measuring up to 4 mm [...] Dictated by Bassam Jovel M.D. (vice president regulatory) Gonzalez Ornelas MD have personally reviewed and [...] body. Report dictated by Royer Stovall MD (president mortgage company). Amanda Ornelas MD have personally reviewed and interpreted this examination/study. > Interpreting Provider: Amadna Prieto MD on 10/20/2022 3:[address] [...] DATE/TIME OF EXAM: 10/19/2022 8:16 AM, LOCATION [facility] INDICATION: Code Stroke ADDITIONAL CLINICAL INFORMATION: Ordering [...] DATE/TIME OF EXAM: 10/19/2022 8:04 AM, LOCATION [facility] INDICATION: Code Stroke ADDITIONAL CLINICAL INFORMATION: Ordering [...] Pulse: 77 90 84 83 Resp: 18 Temp: 97.5 ??F (36.4 ??C) 98.8 [...] Haleigh Narayan - 11/11/2022 12:00 PM CDT [facility] Occupational Therapy [place] [...] chest. > Dictated by Tim Major MD (president mortgage company). Alexx Ornelas have personally reviewed and interpreted [...] pattern. Report dictated by Mc Castro MD, (president mortgage company). Pepe Ornelas MD have personally reviewed and [...] queried.. > Dictated by Tim Major MD (president mortgage company). IPepe MD have personallyreviewed and interpreted this examination/study. [...] frontal gyrus/frontal operculum, consistent with an evolving gaaocoba-ua-psgmgdj infarct. 4.No significant midline shift. Similar-appearing size [...] report is dictated by Kayla Stevenson MD (president mortgage company) 1 I, Lonnie Rae MD have personally [...] report is dictated by Miranda Bowen MD (president mortgage company) Oriana Ornelas MD have personally reviewed and [...] verification. > Dictated by Clarisa Cantrell MD (president mortgage company). Alexx Ornelas have personally reviewed and interpreted [...] report is dictated by Miranda Bowen MD (president mortgage company) Joni Ornelas MD have personally reviewed and [...] right lateral ventricle, and approximately 3-4 mm bshuh-ry-nbpu midline shift, grossly similar to the prior. [...] verification. Report dictated by Tim Major MD (president mortgage company). Jasper Ornelas MD have personally reviewed and [...] The report is dictated by Miranda Bowen MD(president mortgage company) Jasper Ornelas MD have personally reviewed and [...] dictated by Lorenzo Horta MD (vice president regulatory). Lonnie Ornelas MD have personally reviewed and [...] Dictated by Bassam Jovel M.D. (vice president regulatory) Gonzalez Ornelas MD have personally reviewed and [...] on 10/19/2022 8:15 AM Procedure and Consults [facility] (From admission, onward) Start Ordered 11/10/22 1245 [...] 10/28/22 0150 10/27/22 1745 IP CONSULT TO MASK INSPECTOR ONCE Provider: (Not yet assigned) 10/27/22 1733 [...] 10/19/22 0902 10/19/22 0900 IP CONSULT TO MASK INSPECTOR ONCE Provider: (Not yet assigned) 10/19/22 0902 10/19/22 0900 IP CONSULT TO CASE MANAGEMENT ONCE Provider: (Not yet assigned) 10/19/22 0902 10/19/22 0900 IP CONSULT TO NUTRITIONAL SERV ONCE Provider: (Not yet assigned) 10/19/22 0902 10/19/22 0900 CONSULT TO REHAB ONCE Provider: (Not yet assigned) 10/19/22 0902 10/19/22 0845 IR INTRACRANIAL MECH THROMBECT RAD ONE TIME 10/19/22 0843 08/10/23 0800 CONSULT TO ENRICHMENT TEACHER ONCE Provider: (Not yet assigned) 10/19/22 0756 10/19/22799 CT BRAIN - Stroke RAD ONE TIME 10/19/226 10/19/22799 CT ANGIO BRAIN NECK STROKE RAD [...] needle insertion. The externally removable 24 Fr Ramez-CanaryHop gastrostomy tube was lubricated. The G-tube was [...] non-darden portions. Procedure Code(s): --- Professional --- 36012, Esophagogastroduodenoscopy, flexible, transoral; with directed placement of percutaneous gastrostomy tube Diagnosis Code(s): --- Professional --- K44.9, Diaphragmatic hernia without obstruction or gangrene K29.60, Other gastritis without bleeding R13.12, Dysphagia, oropharyngeal phase R29.818, Other symptoms and signs involving the nervous system Z43.1, Encounter for attention to gastrostomy CPT copyright 2021 [employer]. All rights reserved. The codes documented in this report are preliminary and upon laborer egg producing farm review may be revised to meet current compliance requirements. Khanh Metz MD 2022 3:26:58 PM Note Initiated On: 2022 2:14 PM Number of Addenda: [phone] [phone] 08/25/2021 Final _ Patient Name: Consuelo Darby [...] the patient. Procedure Code(s): --- Professional --- 51805, Colonoscopy, flexible; with biopsy, single or multiple --- Technical --- 28697, Colonoscopy, flexible; with biopsy, single or multiple Diagnosis Code(s): --- Professional --- Z86.010, Personal history of colonic polyps K63.5, Polyp of colon K57.30, Diverticulosis of large intestine without perforation or abscess without bleeding --- Technical --- Z86.010, Personal history of colonic polyps K63.5, Polyp of colon K57.30, Diverticulosis of large intestine without perforation or abscess without bleeding CPT copyright 2019 [employer]. All rights reserved. The codes documented in this report are preliminary and upon laborer egg producing farm review may be revised to meet current [...] Gallbladder, cholecystectomy: - Cholelithiasis and chronic cholecystitis SHAHIDA/ana TUMOR BOARD: Negative Procedures: EGD w/ PEG [...] PGY IV Division of Gastroenterology and Hepatology [facility] Associated attestation - Carlos West MD - 11/11/2022 3:54 PM CDT I have seen and examined the patient with the Fellow and I agree with the findings and plan of careas documented by the Fellow. Continue antibiotics per ID recommendations Carlos West MD PhD [employer] sales consultant Director, Division of Gastroenterology and Hepatology Co-Director, [facility] * Good Antunez [...] 11/10/22 2300 -- (!) 115 -- 138/80 09/01/23 2242 -- (!) 110 -- 133/81 11/10/222232 99.9 ??F (37.7 ??C) (!) 118 -- [...] 3.9 3.8 4.3 Recent Labs Component Name 11/10/22233701/23 0224 11/08/22 2346 10/23/22 0129 10/22/22 0153 WBC 7.1 [...] EAG 126 Recent Labs Component Name 11/10/22233711/10/2222311/08/22 2346 10/27/22202810/27/22 0054 PLTCOUNT 297 302 360 - 519* PLATELET - - - - Occasional* - = values in this interval not displayed. * Sylvia Wyman, PT - 11/11/2022 8:29 AM CDT [facility] Department of Physical Medicine & Rehabilitation Progress Note Patient: Consuelo Darby Med Record Number: [id number] Date of : 1980 Age: [age] year old 11/11/22 0829 Therapy on Hold Therapy on Hold Surgery;New Order Required for Therapy * Haleigh Narayan - 11/11/2022 8:07 AM CDT 11/11/22 0800 Therapy on Hold Therapy on Hold Surgery;New Order Required for Therapy * Shania Arce SLP - 11/11/2022 7:43 AM CDT [facility] Department of Physical Medicine & Rehabilitation Progress Note Patient: Consuelo Darby Med Record Number: [id number] Date of : 1980 Age: [age] year old 11/11/22 0700 Therapy on Hold Therapy on Hold Surgery;New Order Required for Therapy Barb Lopes MS [facility]-COMPENSATION ANALYST Speech Language Pathologist * Maicol Quiroz DO [...] Troy OT - 11/10/2022 3:30 PM CDT [facility] Physical Medicine and Rehabilitation Occupational Therapy Progress Note Patient: Consuelo Darby Med Record Number: [id number] Date of : 1980 Age: [age] year old PPE worn by staff: gloves;mask - surgical brace maker: Cheli Recommendations: Discharge OT Discharge Recommendations: Patient [...] Appearance: Pt in bed upon arrival in [facility], sister present in room during session. [...] splint fitting appropriately, skin integrity intact. 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 Recent Labs Component Name 11/09/2265310/19/2282306/15/22 0757 ALT 77* 16 9 AST 67* [...] Cruz MD - 11/11/2022 9:42 AM CDT [facility] Attending Note Documentation Date/Time: 11/10/2022, [...] LP with CSF analysis to eval of 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 infection. Personally discussed with neurology team, they [...] S/p 10/20 with neurosurgery for R sided agccal-bvnydxd-otyambeu decompressive sonya-craniectomy for treatment of refractory intracranial hypertension. Transaminitis. Renal function: Estimated Creatinine Clearance: 161 mL/min (A) (by C-G formula based on SCr of 0.52mg/dL (L)). Plan/Recommendations: - Start metronidazole. Continue IV vancomycin, cefepime and doxycycline. - Follow blood cultures until final - Consider LP with CSF analysis to eval of 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 infection. - Monitor right groin change. If [...] 1015 HGBA1C 6.0* Recent Labs Component Name 11/10/2222211/08/22 2346 11/07/22 2234 11/06/22 231 NA 136 141 141 140 POTASSIUM 3.6 3.9 3.6 3.6 CL 105 107 108* 108* CO2 BUN 13 9 8 8 CREATININE 0.52* 0.45* 0.53* 0.46* CALCIUM 8.4 8.5 8.6 8.5 MAGNESIUM 2.0 2.0 2.8* 2.0 PHOS 3.9 3.8 4.3 4.3 Recent Labs Component Name 11/10/2222311/08/22 2346 11/07/22223311/06/22 231 WBC 3.6 5.2 4.7 4.7 HGB 9.4* [...] RESPIRATORY PANEL WITH SARS-COV-2 BY PCR (STL) [[id number]] (Normal) Collected: 11/05/22 1310 Lab Status: Final [...] via the [place] Pathway. CULTURE URINE [[id number]] (Normal) Collected: 11/05/22 1307 Lab Status: Final result Specimen: Urine Cath Straight Updated: 11/06/22 1617 Culture Urine No growth (<100 CFU/mL) CULTURE BLOOD [[id number]] (Normal) Collected: 11/05/22 1054 Lab Status: Final result Specimen: Blood Peripheral Updated: 11/10/22 1400 Culture No growth day 5 CULTURE URINE [[id number]] (Normal) Collected: 10/27/22 1208 Lab Status: Final result Specimen: Urine Clean Catch Updated: 10/28/22 2236 Culture Urine No growth (<100 CFU/mL) CULTURE BLOOD FUNGUS [[id number]] (Normal) Collected: 10/27/22 1158 Lab Status: Preliminary result Specimen: Blood Peripheral Updated: 11/06/22 0848 Culture No fungus isolated CULTURE BLOOD AFB [[id number]] (Normal) Collected: 10/27/22 1158 Lab Status: Preliminary result Specimen: Blood Peripheral Updated: 11/06/22 1135 Culture No acid-fast bacillus isolated BARTONELLA SPECIES PCR [[id number]] Collected: 10/27/22 1158 Lab Status: Final result [...] developed and its performance characteristics determined by [facility]. It has not been cleared or approved by the US Food and Drug Administration. This test was performed in a CLIA certified laboratory and is intended for clinical purposes. Performed By: [facility] [address] [place] [address] Transportation Security Screener: Boo Bond MD, PhD CLIA Number: [id number] CULTURE BLOOD [[id number]] (Normal) Collected: 10/25/22 0900 Lab Status: Final result Specimen: Blood Peripheral Updated: 10/30/22 1330 Culture No growth day 5 CULTURE BLOOD [[id number]] (Normal) Collected: 10/24/22 1313 Lab Status: Final result Specimen: Blood Peripheral Updated: 10/29/22 1632 Culture No growth day 5 MRSA DNA PCR [[id number]] (Normal) Collected: 10/23/22 1234 Lab Status: Final result Specimen: Microbiology from Nasal Updated: 10/23/22 2044 MRSA DNA by PCR Not detected Narrative: Methicillin-resistant Staphylococcus aureus (MRSA) DNA is not detected (presumed not colonized withMRSA). CULTURE BLOOD [[id number]] (Normal) Collected: 10/23/22 1216 Lab Status: Final result Specimen: Blood Peripheral Updated: 10/28/22 1702 Culture No growth day 5 CULTURE BLOOD [[id number]] (Normal) Collected: 10/23/22 1205 Lab Status: Final [...] presence of the primary team staff, residents, PT/OT/COMPENSATION ANALYST and CM/SW. Jaime Drew MD Vascular and [...] Fernandes SLP - 11/10/2022 1:45 PM CDT [facility] Department of Physical Medicine & Rehabilitation Progress Note Patient: Consuelo Darby Med Record Number: [id number] Date of : 1980 Age: [age] year [...] uretheral opening 3 separate times. A 16 Micronesian Silicone puentes catheter was covered with sterile [...] catheter. Please reference table below. Level Puentes Crawford Sample Patient 1 Teaching Puentes (i.e. Medical student, Tech, RN) - Female without urologic history 2 Registered Nurse, Any Physician, Any Advanced Practitioner - Male >65 yo 3 Charge or Experienced Nurse, Urology SHOE TURNER, Urologist - Multiple failed attempts 4 Urologist [...] [place], PT - 11/10/2022 10:05 AM CDT [facility] Physical Medicine and Rehabilitation Physical Therapy Progress Note Patient: Consuelo Darby Med Record Number: [id number] Date of : 1980 Age: [age] year [...] treatment using a 'yes' head nod. Patient's vyawng-dv-uvn present and provides positive encouragement to patient [...] Steady, sitting and standing balance training Modified Gove: Current Modified Maryann Score: 5 AM-PAC 6 [...] EOB x10 minutes with minimal assist ?? Retirement Goal(s): Patient to discharge to appropriate next [...] Rehab Facility: Anticipated level of care provider: [facility] (ALL LOCATIONS): Anticipated Discharge Date: 11/13/22: Discharge Plan: [facility] once medically ready. Orientation Level: Oriented X4: Family Support (Name and Phone): Extended Emergency Contact Information Primary Emergency Contact: Hi Darby Address: [address] [place] [address] [place] [address] [facility] Relation: Spouse Secondary Emergency Contact: Sandra Disla [facility] Mobile Relation: Mother Transportation at Discharge: Ambulance: [...] Labs: Recent Labs Component Name 11/10/22 0224 11/10/223 11/09/22 0237 11/08/22 2346 11/08/22 0254 11/07/22 [...] chest. > Dictated by Tim Major MD (president mortgage company). I, Alexx Lopez have personally reviewed and interpreted this examination/study. > Interpreting Provider: Alexx Lopez on 11/07/2022 10:30 PM XR ABDOMEN KUB PORTABLE Result Date: 11/06/2022 IMPRESSION: Non-obstructive bowel gas pattern. Report dictated by Mc Castro MD, (president mortgage company). I, Pepe Gonzalez MD have personally reviewed [...] to rule out progression April Quintana MD Analytical Strategistbmw sales consultant at [facility] Informatics Coordinator and Advanced Endoscopist Division of Gastroenterology & [...] bilaterally ?? Labs: Recent Labs Component Name 11/10/2222311/08/22234511/07/22 2234 10/23/22 0129 10/22/22 0153 WBC 3.6 [...] results for input(s): MG in the last 30358 hours. Recent Labs Component Name 11/10/2222211/08/22234511/07/222233 PHOS [...] results for input(s): A1C in the last 55729 hours. Recent Labs Component Name 10/20/22 0302 06/15/22 0757 CHOL 173 204* HDL 42 37* LDLCALC 91 117* TRIG 201* 251* Recent Labs Component Name 11/06/22 0136 TSH 1.682 No results for input(s): CKMB, CKTOTAL, CKMB, TROPONINI, BNP in the last [address] ABDOMEN PELVIS W CONTRAST Result [...] DATE/TIME OF EXAM: 11/07/2022 5:25 PM, LOCATION [facility] INDICATION: R50.9: Fever, unspecified fever cause ADDITIONAL [...] chest. > Dictated by Tim Major MD (president mortgage company). I, Alexx Lopez have personally reviewed and [...] Time to Reperfusion: 9:54 Final TICI: 2b Satellite Installation Technician: Dr. Mitali Walter Bill Poster Installer(s): Isak Monte Vessels: Ultrasound Guided Access of Femoral Artery Ultrasound Guided Access of Radial Artery Arterial line placement in the right radial artery Right Common Carotid Artery Angiogram: Cerebral Intracranial Catheterization Mechanical Thrombectomy with Retrievable Stent and Reperfusion Catheter Angiography Through the Existing Catheter Right Femoral Artery Angiogram Anesthesia: General Anesthesia was performed and monitored by an attending Anesthesiologist and their res habilitation assistant throughout the entirety of the case [...] artery demonstrated a patent vessel. A 5 togolese sheath was placed in the radial artery [...] Following a series of exchanges, a 8 Micronesian sheath sheath was placed in the right femoralartery. A Guide and a 6 Micronesian [employer] Select Serrano 2 catheter along with a [...] system. Hemostasis was achieved using a 8 Micronesian Angio-Seal closure device. Hemostasis was immediate at [...] DATE/TIME OF EXAM: 11/05/2022 5:28 PM, LOCATION [facility] INDICATION: R50.9: Fever, unspecified fever cause ADDITIONAL [...] pattern. Report dictated by Mc Castro MD, (president mortgage company). Pepe Ornelas MD have personally reviewed and [...] DATE/TIME OF EXAM: 11/05/2022 9:38 AM, LOCATION [facility] INDICATION: R50.9: Fever, unspecified fever cause ADDITIONAL CLINICAL INFORMATION: Ordering Provider Reason For Exam: consolidation COMPARISON: Chest radiograph 10/29/2022. FINDINGS/IMPRESSION: Previously seen feeding tube has been removed. These no confluent consolidation, pleural effusion, or pneumothorax is noted. The cardiomediastinal silhouette is stable. No acute osseous abnormality is noted. Report dictated by Christopher Tobin MD, (president mortgage company). I, HEATHER FREGOSO MD have personally reviewed and interpreted this examination/study. > Interpreting Provider: HEATHER FREGOSO MD on 11/05/2022 2:[address] ABDOMEN WO CONTRAST Result Date: 11/02/2022 PROCEDURE: CT ABDOMEN WO CONTRAST, DATE/TIME OF EXAM: 2022 6:47 PM, LOCATION [facility] INDICATION: Z93.1: Presence of externally removable percutaneous [...] queried.. > Dictated by Tim Major MD (president mortgage company). I, Pepe Gonzalez MD have personallyreviewed and interpreted this examination/study. 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 4.No significant midline shift. Similar-appearing size and configuration of the ventricles without evidence of hydrocephalus. Basal cisterns are patent. 5.No other convincing change. Partially imaged left nasoenteric tube. > Interpreting Provider: Amanda Real MD, PhD on 10/31/2022 1:26 AM OR GLENN Farhad ANGIO TEAM Result Date: 10/30/2022 Fluoroscopy was used for this exam in the OR. Please see the Operative report. XR CHEST 1VW PORTABLE Result Date: 10/29/2022 PROCEDURE: XR CHEST 1VW PORTABLE, DATE/TIME OF EXAM: 10/29/2022 10:29 AM, LOCATION [facility] INDICATION: R09.02: Hypoxia ADDITIONAL CLINICAL INFORMATION: Ordering Provider Reason For Exam: evaluate for hypoxia COMPARISON: Chest x-ray from 10/27/2022 FINDINGS/IMPRESSION: Enteric tube is seen coursing over the diaphragm without visualization of the distal tip. There is no focal consolidation, pleural effusion, or pneumothorax. The cardiomediastinal silhouette is normal. Report dictated by Jacques Russell DO (president mortgage company). I, Jacques Cole DO have personally reviewed and interpreted this examination/study. 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 Report dictated by Jacques Russell DO (president mortgage company). Jacques Ornelas DO have personally reviewed and interpreted this examination/study. 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 FINDINGS/IMPRESSION: Enteric tube courses below the diaphragm with the distal tip superimposing the antropyloric region. Report dictated by Martell Shetty MD (president mortgage company). Jacques Ornelas DO have personally reviewed and interpreted this examination/study. > Interpreting Provider: Jacques Cole DO on 10/28/2022 12:[address] HEAD WO CONTRAST Result Date: 10/28/2022 PROCEDURE: CT HEAD WO CONTRAST, DATE/TIME OF EXAM: 10/28/2022 5:28 AM, LOCATION [facility] INDICATION: Z91.89: At high risk for bleeding [...] report is dictated by Kayla Stevenson MD (president mortgage company) 1 I, Lonnie Rae MD have personally reviewed and interpreted this examination/study. > Interpreting Provider: Lonnie Rae MD on 10/28/2022 9:15 AM XR CHEST 1VW PORTABLE Result Date: 10/27/2022 PROCEDURE: XR CHEST 1VW PORTABLE, DATE/TIME OF EXAM: 10/27/2022 10:19 AM, LOCATION [facility] INDICATION: D72.829: Leukocytosis, unspecified type ADDITIONAL CLINICAL INFORMATION: Ordering Provider Reason For Exam: any concern for pneumonia COMPARISON: Chest radiograph dated 10/25/2022. FINDINGS/IMPRESSION: Enteric tube courses below the diaphragm and out of the wlvjp-bx-bxlb. RUQ surgical clips are present. No focal consolidation. No pleural effusion or pneumothorax. The cardiomediastinal silhouette is normal. Report dictated by Agnes Oloms DO (president mortgage company). IPepe MD have personally reviewed and interpreted this examination/study. > Interpreting Provider: Pepe Gonzalez MD on 10/27/2022 2:[address] HEAD WO CONTRAST Result Date: 10/27/2022 PROCEDURE: CT HEAD WO CONTRAST, DATE/TIME OF EXAM: 10/27/2022 5:54 AM, [facility] INDICATION: I63.511: Right [...] DATE/TIME OF EXAM: 10/25/2022 9:41 AM, LOCATION [facility] INDICATION: I63.511: Right middle cerebral artery stroke (CMS/HCC) ADDITIONAL CLINICAL INFORMATION: Ordering Provider Reason For Exam: Atlectasis/mucus plugging Comparison: Chest x-ray from10/23/2022, and CT chest, abdomen, pelvis from same day FINDINGS/IMPRESSION: Interval removal of theendotracheal tube. Enteric tube courses below the diaphragm and out of the ogdus-hs-krpd. There is severe left rotation of the patient in this study. There is no focal consolidation, pleural effusion, or pneumothorax. The left upper lobe pulmonary nodule noted on chest CT from same day is not visualized on this plain film. The cardiomediastinal silhouette is normal. The visible bony thorax is intact. Report dictated by Royer Stovall MD (president mortgage company). IAlexx have personally reviewed and interpreted this examination/study. 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 > Interpreting Provider: Oriana Suarez MD on 38:[address] CHEST ABDOMEN PELVIS W CONT Result Date: 10/25/2022 PROCEDURE: CT CHEST ABDOMEN PELVIS W CONT, DATE/TIME OF EXAM: 10/25/2022 12:56 PM, LOCATION [facility] INDICATION: I63.511: Right middle [...] verification. > Dictated by Clarisa Cantrell MD (president mortgage company). I, Alexx Lopez have personally reviewed and interpreted this examination/study. > Interpreting Provider: Alexx Lopez on 10/25/2022 4:[address] HEAD WO CONTRAST Result Date: 10/25/2022 PROCEDURE: CT HEAD WO CONTRAST, DATE/TIME OF EXAM: 10/25/2022 12:56 PM, LOCATION [facility] INDICATION: I63.511: Right middle cerebral [...] report is dictated by Miranda Bowen MD (president mortgage company) I, Joni Fabian MD have personally reviewed and interpreted this examination/study. > Interpreting Provider: Joni Fabian MD on 10/25/2022 2:[address] CARDIAC ANGIO STRUCT MORPH Result Date: 10/25/2022 PROCEDURE: CT CARDIAC ANGIO STRUCT MORPH, DATE/TIME OF EXAM: 10/23/2022 3:08 PM, LOCATION [facility] INDICATION: I63.411: Acute cerebrovascular accident (CVA) due [...] DATE/TIME OF EXAM: 10/24/2022 2:04 PM, LOCATION [facility] INDICATION: R47.1: Dysarthria ADDITIONAL CLINICAL INFORMATION: Ordering Provider ReasonFor Exam: ngt placement COMPARISON: Portable KUB dated 10/23/2022 FINDINGS/IMPRESSION: The enteric tube courses below the diaphragm with tip superimposing the gastric pyloric region. Drafted by Agnes Olmos DO (president mortgage company). I, Vanessa Kumar MD have personally reviewed and interpreted this examination/study. > Interpreting Provider: Vanessa Kumar MD on 10/24/2022 2:17 PM MRI BRAIN WWO CONTRAST Result Date: 10/24/2022 PROCEDURE: MRI BRAIN WWO CONTRAST, DATE/TIME OF EXAM: 10/24/2022 10:56 AM, LOCATION [facility] INDICATION: I63.411: Acute cerebrovascular accident (CVA) due [...] right lateral ventricle, and approximately 3-4 mm stlck-fz-ydlj midline shift at the level of the [...] right lateral ventricle, and approximately 3-4 mm pmuso-it-cuoj midline shift, grossly similar to the prior. [...] verification. Report dictated by Tim Major MD (president mortgage company). IJasper MD have personally reviewed and interpreted this examination/study. > Interpreting Provider: Jasper Sifuentes MD on 10/24/2022 1:59 PM XR CHEST 1VW PORTABLE Result Date: 10/24/2022 PROCEDURE: XR CHEST 1VW PORTABLE, DATE/TIME OF EXAM: 10/23/2022 8:24 AM, LOCATION [facility] INDICATION: I63.511: Right middle cerebral artery stroke (CMS/HCC) ADDITIONAL CLINICAL INFORMATION: Ordering Provider Reason For Exam: OETT position COMPARISON: Chest radiograph dated 10/21/2022 FINDINGS/IMPRESSION: The enteric tube courses below the diaphragm out of the inferior xpikh-qn-ypzp. Endotracheal tube terminates in the midthoracic trachea. There is no focal consolidation. No pleural effusion or pneumothorax. The cardiomediastinal silhouette is normal. No acute osseous abnormality. Report dictated by Agnes Olmos DO (president mortgage company). Vanessa Ornelas MD have personally reviewed and [...] DATE/TIME OF EXAM: 10/23/2022 1:53 PM, LOCATION [facility] INDICATION: R47.1: Dysarthria ADDITIONAL CLINICAL INFORMATION: Ordering Provider ReasonFor Exam: NGT placement COMPARISON: Portable KUB dated 10/20/2022 FINDINGS/IMPRESSION: The enteric tube courses below the diaphragm with tip superimposing the stomach. Drafted by Agnes Olmos DO (president mortgage company). I, Vanessa Kumar MD have personally reviewed and interpreted this examination/study. 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 I, Lonnie Rae MD have personally reviewed and interpreted this examination/study. > Interpreting Provider: Lonnie Rae MD on 10/22/2022 3:10 PM XR CHEST 1VW PORTABLE Result Date: 10/21/2022 PROCEDURE: XR CHEST 1VW PORTABLE, DATE/TIME OF EXAM: 10/21/2022 8:53 AM, LOCATION [facility] INDICATION: R53.1: Weakness ADDITIONAL CLINICAL INFORMATION: Ordering [...] Report dictated by Christopher Tobin MD, MD (president mortgage company). I, HEATHER FREGOSO MD have personally reviewed [...] DATE/TIME OF EXAM: 10/20/2022 9:13 PM, LOCATION [facility] INDICATION: I63.411: Acute cerebrovascular accident (CVA) due to embolism of right middle cerebral artery (CMS/HCC) ADDITIONAL CLINICAL INFORMATION: Ordering Provider Reason For Exam: [facility] COMPARISON: Multiple prior studies, most [...] effacement, effacement of theright lateral ventricle, and hhnbn-cp-vzev midline shift measuring up to 4 mm [...] Dictated by Bassam Jovel M.D. (vice president regulatory) Gonzalez Ornelas MD have personally reviewed and [...] body. Report dictated by Royer Stovall MD (president mortgage company). Amanda Ornelas MD have personally reviewed and [...] DATE/TIME OF EXAM: 10/19/2022 8:16 AM, LOCATION [facility] INDICATION: Code Stroke ADDITIONAL CLINICAL INFORMATION: Ordering [...] DATE/TIME OF EXAM: 10/19/2022 8:04 AM, LOCATION [facility] INDICATION: Code Stroke ADDITIONAL CLINICAL INFORMATION: Ordering [...] 100.6 ??F (38.1 ??C) 99 -- 122/68 11/08/222029 98.6 ??F (37 ??C) 98 18 -- Intake/Output Summary (Last 24 hours) at 11/09/2022 1755 Last data filed at 11/09/2022 1141 Gross per 24 hour Intake 4242 ml Output 750 ml Net 3492 ml Labs: Recent Labs Component Name 10/20/2230106/15/22 0757 CHOL 173 204* TRIG 201* 251* HDL 42 37* LDLCALC 91 117* Recent Labs Component Name 10/20/22 1015 HGBA1C 6.0* Recent Labs Component Name 11/08/22 2346 11/07/22223311/06/22 23111/06/22 0136 NA 141 141 140 139 POTASSIUM 3.9 3.6 3.6 3.5 CL 107 108* 108* 111* CO2 24 22 22 21* BUN 9 8 8 8 CREATININE 0.45* 0.53* 0.46* 0.56 CALCIUM 8.5 8.6 8.5 8.3* MAGNESIUM 2.0 2.8* 2.0 2.0 PHOS 3.8 4.3 4.3 3.6 Recent Labs Component Name 11/08/22 2346 11/07/22223311/06/22231111/06/22 0136 WBC 5.2 4.7 4.7 6.5 7.9 HGB 10.4* 9.2* 9.3* 10.0* 9.7* HCT 33.1* 29.5* 29.5* 32.8* 30.2* PLTCOUNT 360 325 195 155 247 RBC 3.59* 3.18* 3.20* 3.42* 3.28* Recent Labs Component Name 11/09/22 0237 11/08/22 0254 11/07/22 0305 11/06/22 23111/06/22 1830 11/06/22 0740 PT 18.9* 18.3* 18.4* [...] RESPIRATORY PANEL WITH SARS-COV-2 BY PCR (STL) [[id number]] (Normal) Collected: 11/05/22 1310 Lab Status: Final [...] via the [place] [employer] Pathway. CULTURE URINE [[id number]] (Normal) Collected: 11/05/22 1307 Lab Status: Final result Specimen: Urine Cath Straight Updated: 11/06/22 1617 Culture Urine No growth (<100 CFU/mL) CULTURE BLOOD [[id number]] (Normal) Collected: 11/05/22 1054 Lab Status: Preliminary result Specimen: Blood Peripheral Updated: 11/07/22 1401 Culture No growth CULTURE URINE [[id number]] (Normal) Collected: 10/27/22 1208 Lab Status: Final result Specimen: Urine Clean Catch Updated: 10/28/22 2236 Culture Urine No growth (<100 CFU/mL) CULTURE BLOOD FUNGUS [[id number]] (Normal) Collected: 10/27/22 1158 Lab Status: Preliminary result Specimen: Blood Peripheral Updated: 11/06/22 0848 Culture No fungus isolated CULTURE BLOOD AFB [[id number]] (Normal) Collected: 10/27/22 1158 Lab Status: Preliminary result Specimen: Blood Peripheral Updated: 11/06/22 1135 Culture No acid-fast bacillus isolated BARTONELLA SPECIES PCR [[id number]] Collected: 10/27/22 1158 Lab Status: Final result [...] developed and its performance characteristics determined by [facility]. It has not been cleared or approved by the US Food and Drug Administration. This test was performed in a CLIA certified laboratory and is intended for clinical purposes. Performed By: [facility] [address] [place] [address] Transportation Security Screener: Boo Bond MD, PhD CLIA Number: [id number] CULTURE BLOOD [[id number]] (Normal) Collected: 10/25/22 0900 Lab Status: Final result Specimen: Blood Peripheral Updated: 10/30/22 1330 Culture No growth day 5 CULTURE BLOOD [[id number]] (Normal) Collected: 10/24/22 1313 Lab Status: Final result Specimen: Blood Peripheral Updated: 10/29/22 1632 Culture No growth day 5 MRSA DNA PCR [[id number]] (Normal) Collected: 10/23/22 1234 Lab Status: Final result Specimen: Microbiology from Nasal Updated: 10/23/22 2044 MRSA DNA by PCR Not detected Narrative: Methicillin-resistant Staphylococcus aureus (MRSA) DNA is not detected (presumed not colonized withMRSA). CULTURE BLOOD [[id number]] (Normal) Collected: 10/23/22 1216 Lab Status: Final result Specimen: Blood Peripheral Updated: 10/28/22 1702 Culture No growth day 5 CULTURE BLOOD [[id number]] (Normal) Collected: 10/23/22 1205 Lab Status: Final [...] presence of the primary team staff, residents, PT/OT/COMPENSATION ANALYST and CM/JESSY. Jaime Drew MD Vascular and [...] results for input(s): MG in the last 68154 hours. Recent Labs Component Name 11/08/22 2346 11/07/224 11/06/222311 PHOS 3.8 4.3 4.3 Recent Labs Component Name 11/09/22 0237 11/08/22 0254 11/07/22 0305 11/06/22 2312 11/06/22 1830 11/06/22 0740 PT 18.9* 18.3* 18.4* - - - INR 1.6 1.6 1.6 - - - PTT - - - 63.4* 68.6* 97.1* No results for input(s): A1C in the last 65192 hours. Recent Labs Component Name 10/20/22 0302 06/15/22 0757 CHOL 173 204* HDL 42 37* LDLCALC 91 117* TRIG 201* 251* Recent Labs Component Name 11/06/22 0136 TSH 1.682 No results for input(s): CKMB, CKTOTAL, CKMB, TROPONINI, BNP in the last [address] ANGIO CHEST PULM EMBOLISM Result Date: 11/07/2022 PROCEDURE: CT ANGIO CHEST PULM EMBOLISM, DATE/TIME OF EXAM: 11/07/2022 5:25 PM, LOCATION [facility] INDICATION: R50.9: Fever, unspecified fever cause ADDITIONAL [...] chest. > Dictated by Tim Major MD (president mortgage company). I, Alexx Lopez have personally reviewed and [...] Time to Reperfusion: 9:54 Final TICI: 2b Satellite Installation Technician: Dr. Mitali Walter Bill Poster Installer(s): Isak Monte Vessels: Ultrasound Guided Access of Femoral Artery Ultrasound Guided Access of Radial Artery Arterial line placement in the right radial artery Right Common Carotid Artery Angiogram: Cerebral Intracranial Catheterization Mechanical Thrombectomy with Retrievable Stent and Reperfusion Catheter Angiography Through the Existing Catheter Right Femoral Artery Angiogram Anesthesia: General Anesthesia was performed and monitored by an attending Anesthesiologist and their res habilitation assistant throughout the entirety of the case [...] artery demonstrated a patent vessel. A 5 togolese sheath was placed in the radial artery [...] Following a series of exchanges, a 8 Micronesian sheath sheath was placed in the right femoralartery. A Guide and a 6 Micronesian Penumbra Select Serrano 2 catheter along with [...] system. Hemostasis was achieved using a 8 Micronesian Angio-Seal closure device. Hemostasis was immediate at [...] DATE/TIME OF EXAM: 11/05/2022 5:28 PM, LOCATION [facility] INDICATION: R50.9: Fever, unspecified fever cause ADDITIONAL [...] pattern. Report dictated by Mc Castro MD, (president mortgage company). IPepe MD have personally reviewed and interpreted [...] DATE/TIME OF EXAM: 11/05/2022 9:38 AM, LOCATION [facility] INDICATION: R50.9: Fever, unspecified fever cause ADDITIONAL CLINICAL INFORMATION: Ordering Provider Reason For Exam: consolidation COMPARISON: Chest radiograph 10/29/2022. FINDINGS/IMPRESSION: Previously seen feeding tube has been removed. These no confluent consolidation, pleural effusion, or pneumothorax is noted. The cardiomediastinal silhouette is stable. No acute osseous abnormality is noted. Report dictated by Christopher Tobin MD, (president mortgage company). I, HEATHER FREGOSO MD have personally reviewed and interpreted this examination/study. > Interpreting Provider: HEATHER FREGOSO MD on 11/05/2022 2:[address] ABDOMEN WO CONTRAST Result Date: 11/02/2022 PROCEDURE: CT ABDOMEN WO CONTRAST, DATE/TIME OF EXAM: 2022 6:47 PM, LOCATION [facility] INDICATION: Z93.1: Presence of externally removable percutaneous [...] queried.. > Dictated by Tim Major MD (president mortgage company). I, Pepe Gonzalez MD have personallyreviewed and interpreted this examination/study. > Interpreting Provider: Pepe Gonzalez MD on 11/02/2022 1:[address] ABDOMEN PELVIS W CONTRAST Result Date: 10/31/2022 PROCEDURE: CT ABDOMEN PELVIS W CONTRAST, DATE/TIME OF EXAM: 10/31/2022 10:16 AM, LOCATION [facility] INDICATION: I33.0: Aortic valve vegetation ADDITIONAL CLINICAL [...] DATE/TIME OF EXAM: 10/30/2022 8:22 PM, LOCATION: [facility] HISTORY: I63.511: Right middle cerebral artery stroke [...] frontal gyrus/frontal operculum, consistent with an evolving utfpcsgw-fe-ftaafgh infarct. 4.No significant midline shift. Similar-appearing size and configuration of the ventricles without evidence of hydrocephalus. Basal cisterns are patent. 5.No other convincing change. Partially imaged left nasoenteric tube. > Interpreting Provider: Amanda Real MD, PhD on 10/31/2022 1:26 AM OR GL[facility] Farhad ANGIO TEAM Result Date: 10/30/2022 Fluoroscopy was used for this exam in the OR. Please see the Operative report. XR CHEST 1VW PORTABLE Result Date: 10/29/2022 PROCEDURE: XR CHEST 1VW PORTABLE, DATE/TIME OF EXAM: 10/29/2022 10:29 AM, LOCATION [facility] INDICATION: R09.02: Hypoxia ADDITIONAL CLINICAL INFORMATION: Ordering Provider Reason For Exam: evaluate for hypoxia COMPARISON: Chest x-ray from 10/27/2022 FINDINGS/IMPRESSION: Enteric tube is seen coursing over the diaphragm without visualization of the distal tip. There is no focal consolidation, pleural effusion, or pneumothorax. The cardiomediastinal silhouette is normal. Report dictated by Jacques Russell DO (president mortgage company). Jacques Ornelas DO have personally reviewed and interpreted this examination/study. 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 Report dictated by Jacques Russell DO (president mortgage company). Jacques Ornelas DO have personally reviewed and interpreted this examination/study. 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 FINDINGS/IMPRESSION: Enteric tube courses below the diaphragm with the distal tip superimposing the antropyloric region. Report dictated by Martell Shetty MD (president mortgage company). I, Jacques Cole DO have personally reviewed and interpreted this examination/study. > Interpreting Provider: Jacques Cole DO on 10/28/2022 12:[address] HEAD WO CONTRAST Result Date: 10/28/2022 PROCEDURE: CT HEAD WO CONTRAST, DATE/TIME OF EXAM: 10/28/2022 5:28 AM, LOCATION [facility] INDICATION: Z91.89: At high risk for bleeding [...] report is dictated by Kayla Stevenson MD (president mortgage company) 1 I, Lonnie Rae MD have personally reviewed and interpreted this examination/study. > Interpreting Provider: Lonnie Rae MD on 10/28/2022 9:15 AM XR CHEST 1VW PORTABLE Result Date: 10/27/2022 PROCEDURE: XR CHEST 1VW PORTABLE, DATE/TIME OF EXAM: 10/27/2022 10:19 AM, LOCATION [facility] INDICATION: D72.829: Leukocytosis, unspecified type ADDITIONAL CLINICAL INFORMATION: Ordering Provider Reason For Exam: any concern for pneumonia COMPARISON: Chest radiograph dated 10/25/2022. FINDINGS/IMPRESSION: Enteric tube courses below the diaphragm and out of the jwtpu-vn-mijv. RUQ surgical clips are present. No focal consolidation. No pleural effusion or pneumothorax. The cardiomediastinal silhouette is normal. Report dictated by Agnes Olmos DO (president mortgage company). I, Pepe Gonzalez MD have personally reviewed and interpreted this examination/study. 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 Enteric tube courses below the diaphragm and out of the qjyew-bl-rnyk. There is severe left rotation of the patient in this study. There is no focal consolidation, pleural effusion, or pneumothorax. The left upper lobe pulmonary nodule noted on chest CT from same day is not visualized on this plain film. The cardiomediastinal silhouette is normal. The visible bony thorax is intact. Report dictated by Royer Stovall MD (president mortgage company). IAlexx have personally reviewed and interpreted this examination/study. 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 > Interpreting Provider: Oriana Suarez MD on 38:[address] CHEST ABDOMEN PELVIS W CONT Result Date: 10/25/2022 PROCEDURE: CT CHEST ABDOMEN PELVIS W CONT, DATE/TIME OF EXAM: 10/25/2022 12:56 PM, LOCATION [facility] INDICATION: I63.511: Right middle [...] verification. > Dictated by Clarisa Cantrell MD (president mortgage company). I, Alexx Lopez have personally reviewed and interpreted this examination/study. > Interpreting Provider: Alexx Lopez on 10/25/2022 4:[address] HEAD WO CONTRAST Result Date: 10/25/2022 PROCEDURE: CT HEAD WO CONTRAST, DATE/TIME OF EXAM: 10/25/2022 12:56 PM, LOCATION [facility] INDICATION: I63.511: Right middle cerebral [...] report is dictated by Miranda Bowen MD (president mortgage company) I, Joni Fabian MD have personally reviewed and interpreted this examination/study. > Interpreting Provider: Joni Fabian MD on 10/25/2022 2:[address] CARDIAC ANGIO STRUCT MORPH Result Date: 10/25/2022 PROCEDURE: CT CARDIAC ANGIO STRUCT MORPH, DATE/TIME OF EXAM: 10/23/2022 3:08 PM, LOCATION [facility] INDICATION: I63.411: Acute cerebrovascular accident (CVA) due [...] DATE/TIME OF EXAM: 10/24/2022 2:04 PM, LOCATION [facility] INDICATION: R47.1: Dysarthria ADDITIONAL CLINICAL INFORMATION: Ordering Provider ReasonFor Exam: ngt placement COMPARISON: Portable KUB dated 10/23/2022 FINDINGS/IMPRESSION: The enteric tube courses below the diaphragm with tip superimposing the gastric pyloric region. Drafted by Agnes Olmos DO (president mortgage company). Vanessa Ornelas MD have personally reviewed and interpreted this examination/study. > Interpreting Provider: Vanessa Kumar MD on 10/24/2022 2:17 PM MRI BRAIN WWO CONTRAST Result Date: 10/24/2022 PROCEDURE: MRI BRAIN WWO CONTRAST, DATE/TIME OF EXAM: 10/24/2022 10:56 AM, LOCATION [facility] INDICATION: I63.411: Acute cerebrovascular accident (CVA) due [...] right lateral ventricle, and approximately 3-4 mm wzsxg-xc-xspj midline shift at the level of the [...] right lateral ventricle, and approximately 3-4 mm gemqe-or-zhkh midline shift, grossly similar to the prior. [...] verification. Report dictated by Tim Major MD (president mortgage company). Jasper Ornelas MD have personally reviewed and interpreted this examination/study. > Interpreting Provider: Jasper Sifuentes MD on 10/24/2022 1:59 PM XR CHEST 1VW PORTABLE Result Date: 10/24/2022 PROCEDURE: XR CHEST 1VW PORTABLE, DATE/TIME OF EXAM: 10/23/2022 8:24 AM, LOCATION [facility] INDICATION: I63.511: Right middle cerebral artery stroke (CMS/HCC) ADDITIONAL CLINICAL INFORMATION: Ordering Provider Reason For Exam: OETT position COMPARISON: Chest radiograph dated 10/21/2022 FINDINGS/IMPRESSION: The enteric tube courses below the diaphragm out of the inferior amtsa-ea-wcqw. Endotracheal tube terminates in the midthoracic trachea. There is no focal consolidation. No pleural effusion or pneumothorax. The cardiomediastinal silhouette is normal. No acute osseous abnormality. Report dictated by Agnes Olmos DO (president mortgage company). Vanessa Ornelas MD have personally reviewed and [...] DATE/TIME OF EXAM: 10/23/2022 1:53 PM, LOCATION [facility] INDICATION: R47.1: Dysarthria ADDITIONAL CLINICAL INFORMATION: Ordering Provider ReasonFor Exam: NGT placement COMPARISON: Portable KUB dated 10/20/2022 FINDINGS/IMPRESSION: The enteric tube courses below the diaphragm with tip superimposing the stomach. Drafted by Agnes Olmos DO (president mortgage company). IVanessa MD have personally reviewed and interpreted this examination/study. > Interpreting Provider: Vanessa Kumar MD on 10/24/2022 8:[address] HEAD WO CONTRAST Result Date: 10/23/2022 PROCEDURE: CT HEAD WO CONTRAST, DATE/TIME OF EXAM: 10/23/2022 5:53 AM, LOCATION [facility] INDICATION: I63.511: Right middle cerebral artery stroke [...] The report is dictated by Miranda Bowen MD(president mortgage company) I, Jasper Sifuentes MD have personally reviewed and interpreted this examination/study. > Interpreting Provider: Jasper Sifuentes MD on 10/23/2022 9:[address] HEAD WO CONTRAST Result Date: 10/22/2022 PROCEDURE: CT HEAD WO CONTRAST, DATE/TIME OF EXAM: 10/22/2022 5:35 AM, LOCATION [facility] INDICATION: I63.511: Right middle cerebral [...] dictated by Lorenzo Horta MD (vice president regulatory). I, Lonnie Rae MD have personally reviewed and interpreted this examination/study. > Interpreting Provider: Lonnie Rae MD on 10/22/2022 3:10 PM XR CHEST 1VW PORTABLE Result Date: 10/21/2022 PROCEDURE: XR CHEST 1VW PORTABLE, DATE/TIME OF EXAM: 10/21/2022 8:53 AM, LOCATION [facility] INDICATION: R53.1: Weakness ADDITIONAL CLINICAL INFORMATION: Ordering [...] Report dictated by Christopher Tobin MD, MD (president mortgage company). I, HEATHER FREGOSO MD have personally reviewed [...] DATE/TIME OF EXAM: 10/20/2022 9:13 PM, LOCATION [facility] INDICATION: I63.411: Acute cerebrovascular accident (CVA) due to embolism of right middle cerebral artery (CMS/HCC) ADDITIONAL CLINICAL INFORMATION: Ordering Provider Reason For Exam: [facility] COMPARISON: Multiple prior studies, most [...] effacement, effacement of theright lateral ventricle, and qjnsj-ln-lxlt midline shift measuring up to 4 mm [...] Dictated by Bassam Jovel M.D. (vice president regulatory) Gonzalez Ornelas MD have personally reviewed and [...] body. Report dictated by Royer Stovall MD (president mortgage company). Amadna Ornelas MD have personally reviewed and interpreted [...] DATE/TIME OF EXAM: 10/19/2022 8:16 AM, LOCATION [facility] INDICATION: Code Stroke ADDITIONAL CLINICAL INFORMATION: Ordering [...] DATE/TIME OF EXAM: 10/19/2022 8:04 AM, LOCATION [facility] INDICATION: Code Stroke ADDITIONAL CLINICAL INFORMATION: Ordering [...] needed. Shania Jha, PharmD 1:28 PM 11/09/2022 [facility] Vancomycin Guideline SUBJECTIVE/OBJECTIVE Consuelo Darby is a [...] 8 WBC 5.2 4.7 4.7 6.5 7.9 @[id number]@ Dialysis Orders (72h ago, onward) None Radiocontrast [...] [place], OT - 11/09/2022 1:03 PM CDT [facility] Physical Medicine and Rehabilitation Occupational Therapy Progress Note Patient: Consuelo Darby Med Record Number: [id number] Date of : 1980 Age: [age] year old PPE worn by staff: gloves;mask - surgical brace maker: Cheli Recommendations: Discharge OT Discharge Recommendations: Patient [...] Appearance: Pt in bed upon arrival in [facility], two family members present in room [...] tolerance: fair minus Modified Maryann: Current Modified Gove Score: 5 AM-PAC 6 Clicks Daily Activity [...] with good endurance and with minimal pain Retirement Goal(s): Patient to discharge to appropriate next [...] [place], PT - 11/09/2022 10:30 AM CDT [facility] Physical Medicine and Rehabilitation Physical Therapy Progress Note Patient: Consuelo Darby Med Record Number: [id number] Date of : 1980 Age: [age] year [...] monitoring of vitals Modified Maryann: Current Modified Maryann Score: 5 [...] EOB x10 minutes with minimal assist ?? Retirement Goal(s): Patient to discharge to appropriate next [...] Ochoa APRN-CNP - 11/09/2022 9:35 AM CDT [facility] PLAN OF CARE 42F admitted for stroke [...] day multidisciplinary inpatient therapies Discharge Facility Information: [facility] Anticipated level of care at discharge: Acute Rehab Facility: Anticipated level of care provider: [facility] (ALL LOCATIONS): Anticipated Discharge Date: 11/10/22: Orientation Level: Oriented X4: Family Support (Name and Phone): Extended Emergency Contact Information Primary Emergency Contact: Hi Darby Address: [address] [place] [address] [place] [address] [facility] Relation: Spouse Secondary Emergency Contact: Sandra Disla [facility] Mobile Relation: Mother Transportation at Discharge: Ambulance: READMISSION RISK SCORE is 16 at 9:12 AM 11/09/2022.: Name: Anita Richards * Alhaji Otoole MD - 11/09/2022 8:33 AM CDT [facility] Progress Note Admitted on: 10/19/2022 7:53 AM Hospital stay: Day Room: [facility] Attending: Jaime Drew MD Reason for ID consultation: Fever, culture negative infective endocarditis Brief History and Hospital Course: Consuelo Darby??is a 41 year old?female??with a past medical history significant for essential hypertension, migraine, GERD.?Patient presented to [facility] on??10/19/2022??as code stroke due [...] Cruz MD - 11/10/2022 9:03 AM CDT [facility] Attending Note Documentation Date/Time: 11/09/2022, [...] S/p 10/20 with neurosurgery for R sided sowmge-fkkwzga-gnbnkikt decompressive sonya-craniectomy for treatment of refractory intracranial [...] 3.28* 3.24* Recent Labs Component Name 11/08/22 02511/07/22 03011/06/22231111/06/22 1830 11/06/22 0740 11/06/22 0136 PT 18.3* [...] Date/Time RESPIRATORY PANEL WITH SARS-COV-2 BY PCR ([facility]) [[id number]] (Normal) Collected: 11/05/22 1310 Lab Status: Final [...] via the [place] Pathway. CULTURE URINE [[id number]] (Normal) Collected: 11/05/22 1307 Lab Status: Final result Specimen: Urine Cath Straight Updated: 11/06/22 1617 Culture Urine No growth (<100 CFU/mL) CULTURE BLOOD [[id number]] (Normal) Collected: 11/05/22 1054 Lab Status: Preliminary result Specimen: Blood Peripheral Updated: 11/07/22 1401 Culture No growth CULTURE URINE [[id number]] (Normal) Collected: 10/27/22 1208 Lab Status: Final result Specimen: Urine Clean Catch Updated: 10/28/22 2236 Culture Urine No growth (<100 CFU/mL) CULTURE BLOOD FUNGUS [[id number]] (Normal) Collected: 10/27/22 1158 Lab Status: Preliminary result Specimen: Blood Peripheral Updated: 11/06/22 0848 Culture No fungus isolated CULTURE BLOOD AFB [[id number]] (Normal) Collected: 10/27/22 115 Lab Status: Preliminary result Specimen: Blood Peripheral Updated: 11/06/22 1135 Culture No acid-fast bacillus isolated BARTONELLA SPECIES PCR [[id number]] Collected: 10/27/22 115 Lab Status: Final result [...] developed and its performance characteristics determined by [facility]. It has not been cleared or approved by the US Food and Drug Administration. This test was performed in a CLIA certified laboratory and is intended for clinical purposes. Performed By: [facility] [address] [place] [address] Transportation Security Screener: Boo Bond MD, PhD CLIA Number: [id number] CULTURE BLOOD [[id number]] (Normal) Collected: 10/25/22 0900 Lab Status: Final result Specimen: Blood Peripheral Updated: 10/30/22 1330 Culture No growth day 5 CULTURE BLOOD [[id number]] (Normal) Collected: 10/24/22 1313 Lab Status: Final result Specimen: Blood Peripheral Updated: 10/29/22 1632 Culture No growth day 5 MRSA DNA PCR [[id number]] (Normal) Collected: 10/23/22 1234 Lab Status: Final result Specimen: Microbiology from Nasal Updated: 10/23/22 2044 MRSA DNA by PCR Not detected Narrative: Methicillin-resistant Staphylococcus aureus (MRSA) DNA is not detected (presumed not colonized withMRSA). CULTURE BLOOD [[id number]] (Normal) Collected: 10/23/22 1216 Lab Status: Final result Specimen: Blood Peripheral Updated: 10/28/22 1702 Culture No growth day 5 CULTURE BLOOD [[id number]] (Normal) Collected: 10/23/22 1205 Lab Status: Final [...] presence of the primary team staff, residents, PT/OT/COMPENSATION ANALYST and CM/SW. Jaime Drew MD Vascular and [...] 0931 11/02/22 0917 10/31/22 0948 10/28/22 09[facility] 15.3 13.2 25.4* 16.5 Will [...] needed. Maicol Oden, PharmD 3:58 PM 11/08/2022 [facility] Vancomycin Guideline SUBJECTIVE/OBJECTIVE Consuelo Darby is a [...] WBC 4.7 4.7 6.5 7.9 6.9 - @[id number]@ Dialysis Orders (72h ago, onward) None Radiocontrast [...] Premix 1,500 mg 333.33 mL/hr * Jerry Leigh SLP - 11/08/2022 3:51 PM CDT [facility] Physical Medicine and Rehabilitation Swallow Treatment Patient: Consuelo Darby Med Record Number: [id number] Date of : 1980 Age: [age] year [...] Impression - Pharyngeal: Severe Treatment/Education/Interventions: While performing COMPENSATION ANALYST, Patient and sister was instructed in: goals [...] precautions., Patient will follow recommended swallowing strategies. Retirement Goal (s): Patient to be independent/baseline with functional mobility and self care and be able to safely discharge to prior level of care. Jerry Valle M.A., [facility]-COMPENSATION ANALYST Speech Language Pathologist [phone] * Jose Elias [...] Otoole MD - 11/08/2022 3:10 PM CDT [facility] Progress Note Admitted on: 10/19/2022 7:53 AM Hospital stay: Room: 2/ Attending: Jaime Drew MD Reason for ID consultation: Fever, culture negative infective endocarditis Brief History and Hospital Course: Consuelo Darby??is a 41 year old?female??with a past medical history significant for essential hypertension, migraine, GERD.?Patient presented to [facility] on??10/19/2022??as code stroke due [...] Lines: LABS CBC: Recent Labs Component Name 11/07/22223311/06/22231111/06/226 10/23/22 0129 [...] 0.53 mg/dL (L)). Recent Labs Component Name 10/19/2224 06/15/22 0757 12/09/18 0812 ALT 16 9 [...] Cruz MD - 11/09/2022 6:55 AM CDT [facility] [facility] Attending Note Documentation Date/Time: 11/08/2022, [...] S/p 10/20 with neurosurgery for R sided ltzgtq-qslnmvi-mhtvlngw decompressive sonya-craniectomy for treatment of refractory intracranial [...] None: Anticipated Discharge Date: 11/10/22: Discharge Plan: [facility] Rehab once medically ready. Pt febrile and being evaluated. ID following. Pending heparin gtt + warfarin bridge Orientation Level: Oriented to Person;Oriented to Place: Family Support (Name and Phone): Extended Emergency Contact Information Primary Emergency Contact: Hi Darby Address: [address] [place] [address] [place] [address] [facility] Relation: Spouse Secondary Emergency Contact: Sandar Disla [facility] Mobile Relation: Mother Transportation at Discharge: Ambulance: READMISSION RISK SCORE is 16 at 2:49 PM 11/08/2022.: Name: Maru Mcduffie RN 2426 * Rosa Vegas, PT - 11/08/2022 2:06 PM CDT [facility] Physical Medicine and Rehabilitation Physical Therapy Progress Note Patient: Consuelo Darby Med Record Number: [id number] Date of : 1980 Age: [age] year [...] balance activities, and monitoring of vitals Modified Gove: Current Modified Gove Score: 5 AM-PAC 6 Clicks Mobility Raw [...] EOB x10 minutes with minimal assist ?? Retirement Goal(s): Patient to discharge to appropriate next [...] creatinine clearance: 157.9 mL/min (A) * Shania Troy OT - 11/08/2022 11:32 AM CDT [facility] Physical Medicine and Rehabilitation Occupational Therapy Progress Note Patient: Consuelo Darby Med Record Number: [id number] Date of : 1980 Age: [age] year old PPE worn by staff: gloves;mask - surgical brace maker: Cheli Recommendations: Discharge OT Discharge Recommendations: Patient [...] Appearance: Pt in bed upon arrival in [facility], MIL present in room during session. [...] skin integrity intact. Modified Maryann: Current Modified Gove Score: 5 AM-PAC 6 Clicks Daily Activity [...] with good endurance and with minimal pain Retirement Goal(s): Patient to discharge to appropriate next [...] results for input(s): MG in the last 90349 hours. Recent Labs Component Name 11/07/22223311/06/22231111/06/22135 PHOS 4.3 4.3 3.6 Recent Labs Component Name 11/08/22 0254 11/07/22 0305 11/06/22231111/06/22 1830 11/06/22 0740 11/06/22 0136 PT 18.3* 18.4* - - - 17.1* INR 1.6 1.6 - - - 1.4 PTT - - 63.4* 68.6* 97.1* 100.4* No results for input(s): A1C in the last 17446 hours. Recent Labs Component Name 10/20/22 0302 06/15/22 0757 CHOL 173 204* HDL 42 37* LDLCALC 91 117* TRIG 201* 251* Recent Labs Component Name 11/06/22 0136 TSH 1.682 No results for input(s): CKMB, CKTOTAL, CKMB, TROPONINI, BNP in the last [address] ANGIO CHEST PULM EMBOLISM Result Date: 11/07/2022 PROCEDURE: CT ANGIO CHEST PULM EMBOLISM, DATE/TIME OF EXAM: 11/07/2022 5:25 PM, LOCATION [facility] INDICATION: R50.9: Fever, unspecified fever cause ADDITIONAL [...] chest. > Dictated by Tim Major MD (president mortgage company). [employer] have personally reviewed and interpreted this [...] Time to Reperfusion: 9:54 Final TICI: 2b Satellite Installation Technician: Dr. Mitali Walter Bill Poster Installer(s): Isak Monte Vessels: Ultrasound Guided Access of Femoral Artery Ultrasound Guided Access of Radial Artery Arterial line placement in the right radial artery Right Common Carotid Artery Angiogram: Cerebral Intracranial Catheterization Mechanical Thrombectomy with Retrievable Stent and Reperfusion Catheter Angiography Through the Existing Catheter Right Femoral Artery Angiogram Anesthesia: General Anesthesia was performed and monitored by an attending Anesthesiologist and their res habilitation assistant throughout the entirety of the case [...] artery demonstrated a patent vessel. A 5 togolese sheath was placed in the radial artery [...] Following a series of exchanges, a 8 Micronesian sheath sheath was placed in the right femoralartery. A Guide and a 6 Micronesian Penumbra Select Serrano 2 catheter along with [...] system. Hemostasis was achieved using a 8 Micronesian Angio-Seal closure device. Hemostasis was immediate at [...] DATE/TIME OF EXAM: 11/05/2022 5:28 PM, LOCATION [facility] INDICATION: R50.9: Fever, unspecified fever cause ADDITIONAL [...] pattern. Report dictated by Mc Castro MD, (president mortgage company). Pepe Ornelas MD have personally reviewed and [...] DATE/TIME OF EXAM: 11/05/2022 9:38 AM, LOCATION [facility] INDICATION: R50.9: Fever, unspecified fever cause ADDITIONAL CLINICAL INFORMATION: Ordering Provider Reason For Exam: consolidation COMPARISON: Chest radiograph 10/29/2022. FINDINGS/IMPRESSION: Previously seen feeding tube has been removed. These no confluent consolidation, pleural effusion, or pneumothorax is noted. The cardiomediastinal silhouette is stable. No acute osseous abnormality is noted. Report dictated by Christopher Tobin MD, MD (president mortgage company). I, HEATHER FREGOSO MD have personally reviewed and interpreted this examination/study. > Interpreting Provider: HEATHER FREGOSO MD on 11/05/2022 2:[address] ABDOMEN WO CONTRAST Result Date: 11/02/2022 PROCEDURE: CT ABDOMEN WO CONTRAST, DATE/TIME OF EXAM: 2022 6:47 PM, LOCATION [facility] INDICATION: Z93.1: Presence of externally removable percutaneous [...] queried.. > Dictated by Tim Major MD (president mortgage company). I, Pepe Gonzalez MD have personallyreviewed and interpreted this examination/study. 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 4.No significant midline shift. Similar-appearing size [...] DATE/TIME OF EXAM: 10/29/2022 10:29 AM, LOCATION [facility] INDICATION: R09.02: Hypoxia ADDITIONAL CLINICAL INFORMATION: Ordering Provider Reason For Exam: evaluate for hypoxia COMPARISON: Chest x-ray from 10/27/2022 FINDINGS/IMPRESSION: Enteric tube is seen coursing over the diaphragm without visualization of the distal tip. There is no focal consolidation, pleural effusion, or pneumothorax. The cardiomediastinal silhouette is normal. Report dictated by Jacques Russell DO (president mortgage company). Jacques Ornelas DO have personally reviewed and interpreted this examination/study. 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 Report dictated by Jacques Russell DO (president mortgage company). Jacques Ornelas DO have personally reviewed and interpreted this examination/study. 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 FINDINGS/IMPRESSION: Enteric tube courses below the diaphragm with the distal tip superimposing the antropyloric region. Report dictated by Martell Shetty MD (president mortgage company). Jacques Ornelas DO have personally reviewed and interpreted this examination/study. > Interpreting Provider: Jacques Cole DO on 10/28/2022 12:[address] HEAD WO CONTRAST Result Date: 10/28/2022 PROCEDURE: CT HEAD WO CONTRAST, DATE/TIME OF EXAM: 10/28/2022 5:28 AM, LOCATION [facility] INDICATION: Z91.89: At high risk for bleeding [...] report is dictated by Kayla Stevenson MD (president mortgage company) 1 I, Lonnie Rae MD have personally reviewed and interpreted this examination/study. > Interpreting Provider: Lonnie Rae MD on 10/28/2022 9:15 AM XR CHEST 1VW PORTABLE Result Date: 10/27/2022 PROCEDURE: XR CHEST 1VW PORTABLE, DATE/TIME OF EXAM: 10/27/2022 10:19 AM, LOCATION [facility] INDICATION: D72.829: Leukocytosis, unspecified type ADDITIONAL CLINICAL INFORMATION: Ordering Provider Reason For Exam: any concern for pneumonia COMPARISON: Chest radiograph dated 10/25/2022. FINDINGS/IMPRESSION: Enteric tube courses below the diaphragm and out of the fvehm-zu-umtu. RUQ surgical clips are present. No focal consolidation. No pleural effusion or pneumothorax. The cardiomediastinal silhouette is normal. Report dictated by Agnes Olmos DO (president mortgage company). I, Pepe Gonzalez MD have personally reviewed and interpreted this examination/study. 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 Enteric tube courses below the diaphragm and out of the ctizs-tl-dnrp. There is severe left rotation of the patient in this study. There is no focal consolidation, pleural effusion, or pneumothorax. The left upper lobe pulmonary nodule noted on chest CT from same day is not visualized on this plain film. The cardiomediastinal silhouette is normal. The visible bony thorax is intact. Report dictated by Royer Stovall MD (president mortgage company). I, Alexx Lopez have personally reviewed and interpreted this examination/study. 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 > Interpreting Provider: Oriana Suarez MD on 38:[address] CHEST ABDOMEN PELVIS W CONT Result Date: 10/25/2022 PROCEDURE: CT CHEST ABDOMEN PELVIS W CONT, DATE/TIME OF EXAM: 10/25/2022 12:56 PM, LOCATION [facility] INDICATION: I63.511: Right middle [...] verification. > Dictated by Clarisa Cantrell MD (president mortgage company). I, Alexx Lopez have personally reviewed and interpreted this examination/study. > Interpreting Provider: Alexx Lopez on 10/25/2022 4:[address] HEAD WO CONTRAST Result Date: 10/25/2022 PROCEDURE: CT HEAD WO CONTRAST, DATE/TIME OF EXAM: 10/25/2022 12:56 PM, LOCATION [facility] INDICATION: I63.511: Right middle cerebral [...] report is dictated by Miranda Bowen MD (president mortgage company) I, Joni Fabian MD have personally reviewed and interpreted this examination/study. > Interpreting Provider: Joni Fabian MD on 10/25/2022 2:[address] CARDIAC ANGIO STRUCT MORPH Result Date: 10/25/2022 PROCEDURE: CT CARDIAC ANGIO STRUCT MORPH, DATE/TIME OF EXAM: 10/23/2022 3:08 PM, LOCATION [facility] INDICATION: I63.411: Acute cerebrovascular accident (CVA) due [...] DATE/TIME OF EXAM: 10/24/2022 2:04 PM, LOCATION [facility] INDICATION: R47.1: Dysarthria ADDITIONAL CLINICAL INFORMATION: Ordering Provider ReasonFor Exam: ngt placement COMPARISON: Portable KUB dated 10/23/2022 FINDINGS/IMPRESSION: The enteric tube courses below the diaphragm with tip superimposing the gastric pyloric region. Drafted by Agnes Olmos DO (president mortgage company). I, Vanessa Kumar MD have personally reviewed and interpreted this examination/study. > Interpreting Provider: Vanessa Kumar MD on 10/24/2022 2:17 PM MRI BRAIN WWO CONTRAST Result Date: 10/24/2022 PROCEDURE: MRI BRAIN WWO CONTRAST, DATE/TIME OF EXAM: 10/24/2022 10:56 AM, LOCATION [facility] INDICATION: I63.411: Acute cerebrovascular accident (CVA) due [...] right lateral ventricle, and approximately 3-4 mm twgia-nm-lfmp midline shift at the level of the [...] right lateral ventricle, and approximately 3-4 mm drzdh-sm-lpvr midline shift, grossly similar to the prior. [...] verification. Report dictated by Tim Major MD (president mortgage company). I, Jasper Sifuentes MD have personally reviewed and interpreted this examination/study. 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 Endotracheal tube terminates in the midthoracic trachea. There is no focal consolidation. No pleural effusion or pneumothorax. The cardiomediastinal silhouette is normal. No acute osseous abnormality. Report dictated by Agnes Olmos DO (president mortgage company). Vanessa Ornelas MD have personally reviewed and [...] DATE/TIME OF EXAM: 10/23/2022 1:53 PM, LOCATION [facility] INDICATION: R47.1: Dysarthria ADDITIONAL CLINICAL INFORMATION: Ordering Provider ReasonFor Exam: NGT placement COMPARISON: Portable KUB dated 10/20/2022 FINDINGS/IMPRESSION: The enteric tube courses below the diaphragm with tip superimposing the stomach. Drafted by Agnes Olmos DO (president mortgage company). Vanessa Ornelas MD have personally reviewed and interpreted this examination/study. 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 ILonnie MD have personally reviewed and interpreted this examination/study. > Interpreting Provider: Lonnie Rae MD on 10/22/2022 3:10 PM XR CHEST 1VW PORTABLE Result Date: 10/21/2022 PROCEDURE: XR CHEST 1VW PORTABLE, DATE/TIME OF EXAM: 10/21/2022 8:53 AM, LOCATION [facility] INDICATION: R53.1: Weakness ADDITIONAL CLINICAL INFORMATION: Ordering [...] intact. Report dictated by Christopher Tobin MD, (president mortgage company). I, HEATHER FREGOSO MD have personally reviewed [...] DATE/TIME OF EXAM: 10/20/2022 9:13 PM, LOCATION [facility] INDICATION: I63.411: Acute cerebrovascular accident (CVA) due to embolism of right middle cerebral artery (CMS/HCC) ADDITIONAL CLINICAL INFORMATION: Ordering Provider Reason For Exam: [facility] COMPARISON: Multiple prior studies, most [...] effacement, effacement of theright lateral ventricle, and cqarb-zd-rmmz midline shift measuring up to 4 mm [...] Dictated by Bassam Jovel M.D. (vice president regulatory) Gonzalez Ornelas MD have personally reviewed and [...] body. Report dictated by Royer Stovall MD (president mortgage company). Amanda Ornelas MD have personally reviewed and [...] DATE/TIME OF EXAM: 10/19/2022 8:16 AM, LOCATION [facility] INDICATION: Code Stroke ADDITIONAL CLINICAL INFORMATION: Ordering [...] DATE/TIME OF EXAM: 10/19/2022 8:04 AM, LOCATION [facility] INDICATION: Code Stroke ADDITIONAL CLINICAL INFORMATION: Ordering [...] or improving Outcome: Progressing * Orquidea Pederson, RD/LD - 11/07/2022 2:21 PM CDT Clinical Nutrition [...] Pain affecting intake: No Estimated Needs: KCAL: 4579-7192 (30-35 kcal/kg IBW) Protein (g): 82g (1.5 [...] Vegas, PT - 11/07/2022 2:02 PM CDT [facility] Physical Medicine and Rehabilitation Physical Therapy Progress Note Patient: Consuelo Darby Med Record Number: [id number] Date of : 1980 Age: [age] year [...] with BUE supported on table: reaching to peanut picker object with RUE and placing object on various targets to L side of midline ACTIVITY TOLERANCE: Patient's activity tolerance: fair plus. TREATMENT/INTERVENTIONS: Patient seen for bed mobility training, sitting balance training, and seated therapeutic exercises with emphasis on neutral spine posture and gaze to midline/L side Modified Gove: Current Modified Gove Score: 5 AM-PAC 6 Clicks Mobility Raw [...] EOB x10 minutes with minimal assist ?? Slat Basket Maker Helper Machine Goal(s): Patient to discharge to appropriate next [...] bilaterally Labs: Recent Labs Component Name 11/06/22 23111/06/226 11/05/22 1227 10/23/22 0129 10/22/22 0153 WBC 4.7 6.5 7.9 6.9 - - RBC 3.20* 3.42* 3.28* 3.24* - - HGB 9.3* 10.0* 9.7* 9.7* - - HCT 29.5* 32.8* 30.2* 29.6* - - PLT - - - - 199 - = values in this interval not displayed. Recent Labs Component Name 11/06/22 2312 11/06/22 0136 11/05/22 1124 NA 140 139 139 CL 108* 111* 104 CO2 22 21* 23 BUN 8 8 8 CREATININE 0.46* 0.56 0.54* CALCIUM 8.5 8.3* 8.5 No results for input(s): MG in the last 43067 hours. Recent Labs Component Name 11/06/22 2312 [...] results for input(s): A1C in the last 34154 hours. Recent Labs Component Name 10/20/22 0302 06/15/22 0757 CHOL 173 204* HDL 42 37* LDLCALC 91 117* TRIG 201* 251* Recent Labs Component Name 11/06/22 0136 TSH 1.682 No results for input(s): CKMB, CKTOTAL, CKMB, TROPONINI, BNP in the last [address] ANGIO BRAIN NECK STROKE Result [...] 99.2 ??F (37.3 ??C) 106 -- 130/82 08/28/23 2123 -- 86 -- (!) 135/101 11/06/221952 98.1 [...] HGBA1C 6.0* Recent Labs Component Name 11/06/22 23111/06/22 0136 11/05/22 1124 11/04/222127 NA 140 139 139 141 POTASSIUM 3.6 3.5 3.8 3.7 CL 108* 111* 104 106 CO2 22 21* 23 25 BUN 8 8 8 8 CREATININE 0.46* 0.56 0.54* 0.55* CALCIUM 8.5 8.3* 8.5 8.3* MAGNESIUM 2.0 2.0 2.0 2.3 PHOS 4.3 3.6 3.2 3.4 Recent Labs Component Name 11/06/22 23111/06/22 0136 11/05/22 1227 11/04/222127 WBC 4.7 6.5 7.9 6.9 8.4 HGB [...] RESPIRATORY PANEL WITH SARS-COV-2 BY PCR (STL) [[id number]] (Normal) Collected: 11/05/22 1310 Lab Status: Final [...] via the [place] Pathway. CULTURE URINE [[id number]] (Normal) Collected: 11/05/22 1307 Lab Status: Final result Specimen: Urine Cath Straight Updated: 11/06/22 1617 Culture Urine No growth (<100 CFU/mL) CULTURE BLOOD [[id number]] (Normal) Collected: 11/05/22 1054 Lab Status: Preliminary result Specimen: Blood Peripheral Updated: 11/06/22 1400 Culture No growth 24 hours CULTURE URINE [[id number]] (Normal) Collected: 10/27/22 1208 Lab Status: Final result Specimen: Urine Clean Catch Updated: 10/28/22 2236 Culture Urine No growth (<100 CFU/mL) CULTURE BLOOD FUNGUS [[id number]] (Normal) Collected: 10/27/22 1158 Lab Status: Preliminary result Specimen: Blood Peripheral Updated: 11/06/22 0848 Culture No fungus isolated CULTURE BLOOD AFB [[id number]] (Normal) Collected: 10/27/22 1158 Lab Status: Preliminary result Specimen: Blood Peripheral Updated: 11/06/22 1135 Culture No acid-fast bacillus isolated BARTONELLA SPECIES PCR [[id number]] Collected: 10/27/22 1158 Lab Status: Final result [...] developed and its performance characteristics determined by [facility]. It has not been cleared or approved by the [place] Food and Drug Administration. This test was performed in a CLIA certified laboratory and is intended for clinical purposes. Performed By: [facility] [address] [place] [id number] Transportation Security Screener: Boo Bond MD, PhD CLIA Number: [id number] CULTURE BLOOD [[id number]] (Normal) Collected: 10/25/22 0900 Lab Status: Final result Specimen: Blood Peripheral Updated: 10/30/22 1330 Culture No growth day 5 CULTURE BLOOD [[id number]] (Normal) Collected: 10/24/22 1313 Lab Status: Final result Specimen: Blood Peripheral Updated: 10/29/22 1632 Culture No growth day 5 MRSA DNA PCR [[id number]] (Normal) Collected: 10/23/22 1234 Lab Status: Final result Specimen: Microbiology from Nasal Updated: 10/23/22 2044 MRSA DNA by PCR Not detected Narrative: Methicillin-resistant Staphylococcus aureus (MRSA) DNA is not detected (presumed not colonized withMRSA). CULTURE BLOOD [[id number]] (Normal) Collected: 10/23/22 1216 Lab Status: Final result Specimen: Blood Peripheral Updated: 10/28/22 1702 Culture No growth day 5 CULTURE BLOOD [[id number]] (Normal) Collected: 10/23/22 1205 Lab Status: Final [...] presence of the primary team staff, residents, PT/OT/COMPENSATION ANALYST and CM/SW. Jaime Drew MD Vascular and Interventional Neurology * Shania Troy, OT - 11/07/2022 11:56 AM CDT [facility] Physical Medicine and Rehabilitation Occupational Therapy Progress Note Patient: Consuelo Darby Med Record Number: [id number] Date of : 1980 Age: [age] year old PPE worn by staff: gloves;mask - surgical brace maker: Cheli Recommendations: Discharge OT Discharge Recommendations: Patient [...] Pt in semi fowlers upon arrival in [facility], sister present in room during session. [...] ACTIVITY TOLERANCE: Patient's activity tolerance: fair Modified Gove: Current Modified Maryann Score: 5 AM-PAC 6 [...] with good endurance and with minimal pain Slat Basket Maker Helper Machine Goal(s): Patient to discharge to appropriate next [...] Leigh SLP - 11/07/2022 10:50 AM CDT [facility] Physical Medicine and Rehabilitation Swallow Treatment Patient: Consuelo Darby Med Record Number: [id number] Date of : 1980 Age: [age] year [...] Impression - Pharyngeal: Severe Treatment/Education/Interventions: While performing COMPENSATION ANALYST, Patient and sister was instructed in: goals [...] precautions., Patient will follow recommended swallowing strategies. Retirement Goal (s): Patient to be independent/baseline with functional mobility and self care and be able to safely discharge to prior level of care. 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 Brief History and Hospital Course: Consuelo R Mehnaz??is a 41 year old?female??with a past medical history significant for essential hypertension, migraine, GERD.?Patient presented to [facility] on??10/19/2022??as code stroke due [...] Intake/Output Summary (Last 24 hours) at 11/07/2022 09 Last data filed at 11/07/2022 0450 Gross [...] Cruz MD - 11/08/2022 11:42 AM CDT [facility] Attending Note Documentation Date/Time: 11/07/2022, [...] PMH of HTN, migraine, GERD, presented to [facility] on 10/19/2022 as code stroke due to acute onset left sided weakness, left sided sensory deficits, and dysarthria. Found to have right MCA occulusion. Assessment: 41 year old female with PMH of HTN, migraine, GERD, presented to [facility] on 10/19/2022 as code [...] S/p 10/20 with neurosurgery for R sided lymacz-hzhovcw-wtgtxgam decompressive sonya-craniectomy for treatment of refractory intracranial [...] PM CDT Rapid Response Nurse Rounding Note [address] [address] Patient: Consuelo Darby : 1980 Location: 2/ Rapid Response Nurse (GIS CONSULTANT) continued rounding for follow up of pt's elevated temperature. Pt had a recent hemicraniectomy and ID was consulted and antibiotic regimen adjusted for coverage of endocarditis with possible vegetation. At the time of Night GIS CONSULTANT's rounding the pt's temp is 99.1 with [...] (!) 110 -- 95 % -- -- 11/05/229 (!) 156/104 -- -- (!) 111 -- [...] Recent Labs Component Name 11/06/2213511/05/22 1227 11/04/22212710/23/22 01210/22/22 0153 WBC 6.5 7.9 6.9 8.4 - - RBC 3.42* 3.28* 3.24* 3.73* - - HGB 10.0* 9.7* 9.7* 10.9* - - HCT 32.8* 30.2* 29.6* 34.6* - - PLT - - - - 199 - = values in this interval not displayed. Recent Labs Component Name 11/06/2213511/05/22112311/04/222127 NA 139 139 141 CL 111* 104 106 CO2 21* 23 25 BUN 8 8 8 CREATININE 0.56 0.54* 0.55* CALCIUM 8.3* 8.5 8.3* No results for input(s): MG in the last 85614 hours. Recent Labs Component Name 11/06/22 01311/05/22 11211/04/222127 PHOS 3.6 3.2 3.4 Recent Labs Component Name 11/06/22 0740 11/06/22 0136 11/05/22 1658 11/05/22 1115 11/05/22 0350 11/04/22 0931 11/04/22 0553 PT - 17.1* - - 15.5* - 14.5 INR - 1.4 - - 1.3 - 1.1 PTT 97.1* 100.4* 27.5 - 77.4* - 96.7* - = values in this interval not displayed. No results for input(s): A1C in the last 52564 hours. Recent Labs Component Name 10/20/22 0302 06/15/22 0757 CHOL 173 204* HDL 42 37* LDLCALC 91 117* TRIG 201* 251* Recent Labs Component Name 11/06/22 0136 TSH 1.682 No results for input(s): CKMB, CKTOTAL, CKMB, TROPONINI, BNP in the last [address] ANGIO BRAIN NECK STROKE Result [...] None: Anticipated Discharge Date: 11/08/22: Discharge Plan: [facility] rehab once medically ready. SW following. On warfarin bridge now. Developed fever- consulted ID, broaden abx, Cxs, Ddimer, TSH Orientation Level: Unable to Obtain;Other (Comment) (Patient was more alert this date. Patient awares surrounding and responded to the question by gesture.): Family Support (Name and Phone): Extended Emergency Contact Information Primary Emergency Contact: Hi Darby Address: [address] [address] [place] [address] [facility] Relation: Spouse Secondary Emergency Contact: Sandra Disla [facility] Mobile Relation: Mother Transportation at Discharge: Ambulance: READMISSION RISK SCORE is 16 at 3:24 PM 11/06/2022.: Name: Maru Mcduffie, RN 2426 * Shania Troy OT - 11/06/2022 3:17 PM CDT [facility] Physical Medicine and Rehabilitation Occupational Therapy Splint [...] mg, Enteral Tube, once warfarin ?? [COMPLETED] cfysy-swj-stvvzcqr (HOG) enema 360 mL, Rectal, Once CONTINUOUS [...] Component Name 11/06/22 0136 11/05/22 1227 11/04/228 11/02/22 2221 WBC 6.5 7.9 6.9 8.4 [...] RESPIRATORY PANEL WITH SARS-COV-2 BY PCR (STL) [[id number]] (Normal) Collected: 11/05/22 1310 Lab Status: Final [...] via the [place] Pathway. CULTURE URINE [[id number]] Collected: 11/05/22 1307 Lab Status: In process Specimen: Urine Cath Straight Updated: 11/05/22 1341 CULTURE BLOOD [[id number]] (Normal) Collected: 11/05/22 1054 Lab Status: Preliminary result Specimen: Blood Peripheral Updated: 11/06/22 1400 Culture No growth 24 hours CULTURE URINE [[id number]] (Normal) Collected: 10/27/22 1208 Lab Status: Final result Specimen: Urine Clean Catch Updated: 10/28/22 2236 Culture Urine No growth (<100 CFU/mL) CULTURE BLOOD FUNGUS [[id number]] (Normal) Collected: 10/27/22 1158 Lab Status: Preliminary result Specimen: Blood Peripheral Updated: 11/06/22 0848 Culture No fungus isolated CULTURE BLOOD AFB [[id number]] (Normal) Collected: 10/27/22 1158 Lab Status: Preliminary result Specimen: Blood Peripheral Updated: 11/06/22 1135 Culture No acid-fast bacillus isolated BARTONELLA SPECIES PCR [[id number]] Collected: 10/27/22 1158 Lab Status: Final result [...] developed and its performance characteristics determined by [facility]. It has not been cleared or approved by the US Food and Drug Administration. This test was performed in a CLIA certified laboratory and is intended for clinical purposes. Performed By: [facility] [address] [place] [address] Transportation Security Screener: Boo Bond MD, PhD CLIA Number: [id number] CULTURE BLOOD [[id number]] (Normal) Collected: 10/25/22 0900 Lab Status: Final result Specimen: Blood Peripheral Updated: 10/30/22 1330 Culture No growth day 5 CULTURE BLOOD [[id number]] (Normal) Collected: 10/24/22 1313 Lab Status: Final result Specimen: Blood Peripheral Updated: 10/29/22 1632 Culture No growth day 5 MRSA DNA PCR [[id number]] (Normal) Collected: 10/23/22 1234 Lab Status: Final result Specimen: Microbiology from Nasal Updated: 10/23/22 2044 MRSA DNA by PCR Not detected Narrative: Methicillin-resistant Staphylococcus aureus (MRSA) DNA is not detected (presumed not colonized withMRSA). CULTURE BLOOD [[id number]] (Normal) Collected: 10/23/22 1216 Lab Status: Final result Specimen: Blood Peripheral Updated: 10/28/22 1702 Culture No growth day 5 CULTURE BLOOD [[id number]] (Normal) Collected: 10/23/22 1205 Lab Status: Final [...] presence of the primary team staff, residents, PT/OT/COMPENSATION ANALYST and CM/SW. Jaime Drew MD Vascular and [...] changes in diet or consulting a health janitor caretaker before changes are made. Potential for other medications to interact with warfarin therapy and advised not to take start or discontinue any medication or puef-exs-swwlfog medication without the advice of their health janitor caretaker. Signs and symptoms of bleeding were explained [...] Ankit Spivey - 11/06/2022 11:38 AM CDT [facility] Physical Medicine and Rehabilitation Physical Therapy Progress Note Patient: Consuelo Darby Med Record Number: [id number] Date of : 1980 Age: [age] year [...] monitoring of vitals and cognitive stimulation Modified Gove: Current Modified Gove Score: 5 AM-PAC 6 Clicks Mobility Raw [...] EOB x10 minutes with minimal assist ?? Slat Basket Maker Helper Machine Goal(s): Patient to discharge to appropriate next [...] Otoole MD - 11/06/2022 9:24 AM CDT [facility] Infectious Diseases Progress Note Admitted on: 10/19/2022 7:53 AM Hospital stay: Day 18 Room: [facility] Attending: Jaime Drew MD Reason for ID consultation: Fever, culture negative infective endocarditis Brief History and Hospital Course: Consuelo Darby??is a 41 year old?female??with a past medical history significant for essential hypertension, migraine, GERD.?Patient presented to [facility] on??10/19/2022??as code stroke due [...] Labs Component Name 11/06/22 0136 11/05/22 1227 11/04/22212710/23/22 0129 10/22/22 0153 WBC 6.5 7.9 6.9 8.4 - - RBC 3.42* 3.28* 3.24* 3.73* - - HGB 10.0* 9.7* 9.7* 10.9* - - HCT 32.8* 30.2* 29.6* 34.6* - - MCV 95.9 92.1 91.4 92.8 - - PLT - - - - 199 - = values in this interval not displayed. BMP: Recent Labs Component Name 11/06/22 0136 11/05/22 1124 11/04/22212710/20/22 0302 10/19/22 0824 06/15/22 0757 NA 139 [...] Cruz MD - 11/07/2022 8:57 PM CDT [facility] Infectious Diseases Attending Note Documentation Date/Time: 11/06/2022, 9:14 PM The patient was seen and evaluated with Internal Medicine resident Alhaji Otoole M.D. I agree with the findings as described in the note, including the history, interval changes, ROS, examination, objective data interpretation, impression and plan as documented. Angelica Cruz MD Infectious Diseases Attending * Maurice-Zenia Frazier - 11/06/2022 9:12 AM CDT Discharge corporate scheduler received request from to schedule a follow up appointment with CT Scan. This pattern chart writer sent a request via [employer] to [facility] to assist with scheduling an appointment. The patient's chart will be updated once an appointment has been made. The patient will continued to be followed for their discharge planning needs. 11/06/2022 Zenia Heath 3 * Melany Cali RN - 11/06/2022 8:32 AM CDT Rapid Response Nurse Rounding Note [address] [address] Patient: Consuelo Darby : 1980 Location: Rapid [...] stable or improving Outcome: Progressing * Awilda iL RN - 11/06/2022 1:33 AM CDT Ptt scheduled for 2144. Authorization Representative couldn't get vein and wasn't notified. I [...] PM CDT Rapid [place] [address] Patient: Consuelo Darby : 1980 Location: Patient rounding completed by GIS CONSULTANT, respirations even and unlabored. Continued fevers, however, [...] Perry OT - 11/05/2022 2:54 PM CDT [facility] Physical Medicine and Rehabilitation Occupational Therapy Splint [...] Ramsey MD - 11/05/2022 1:34 PM CDT [facility] Infectious Diseases Progress Note Admitted on: 10/19/2022 7:53 AM Hospital stay: Day 17 Room: 2/ Attending: Jaime Drew MD Reason for IDf/u: Fever cx negative endocarditis Brief History and Hospital Course: Consuelo Darby is a 41 year old female with a past medical history significant for essential hypertension, migraine, GERD. ?? Patient presented to [facility] on 10/19/2022 as code [...] or tick bites. She lives with in [place], [place]. 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 They recently went to a trip to [place] for vacation, she bathed in the sea [...] the nurse, she has some discharged from [facility] today. U/A and Ucx were [...] Clarity UA Clear Slt Cloudy ! Specific [place] UA 1.005 - 1.030 1.016 pH UA [...] -- 11/04/229 -- (!) 110 -- 154/76 11/04/222054 99.8 ??F (37.7 ??C) 109 18 146/72 [...] 6.0* Recent Labs Component Name 11/05/22 1124 11/04/22212711/04/22 0553 11/02/22 222 NA 139 141 139 [...] Procedure Component Value - Date/Time CULTURE BLOOD [[id number]] Collected: 11/05/22 1054 Lab Status: In process Specimen: Blood Peripheral Updated: 11/05/22 1123 CULTURE URINE [[id number]] Lab Status: No result Specimen: Urine Cath Straight RESPIRATORY PANEL WITH SARS-COV-2 BY PCR (STL) [[id number]] Lab Status: No result Specimen: Microbiology from Nasopharyngeal CULTURE URINE [[id number]] (Normal) Collected: 10/27/22 1208 Lab Status: Final result Specimen: Urine Clean Catch Updated: 10/28/22 2236 Culture Urine No growth (<100 CFU/mL) CULTURE BLOOD FUNGUS [[id number]] (Normal) Collected: 10/27/22 115 Lab Status: Preliminary result Specimen: Blood Peripheral Updated: 10/30/22 0628 Culture No fungus isolated CULTURE BLOOD AFB [[id number]] (Normal) Collected: 10/27/22 115 Lab Status: Preliminary result Specimen: Blood Peripheral Updated: 10/30/22 0750 Culture No acid-fast bacillus isolated BARTONELLA SPECIES PCR [[id number]] Collected: 10/27/221157 Lab Status: Final result Specimen: [...] developed and its performance characteristics determined by [facility]. It has not been cleared or approved by the US Food and Drug Administration. This test was performed in a CLIA certified laboratory and is intended for clinical purposes. Performed By: [facility] [address] [place] [address] Transportation Security Screener: Boo Bond MD, PhD CLIA Number: [id number] CULTURE BLOOD [[id number]] (Normal) Collected: 10/25/22 0900 Lab Status: Final result Specimen: Blood Peripheral Updated: 10/30/22 1330 Culture No growth day 5 CULTURE BLOOD [[id number]] (Normal) Collected: 10/24/22 1313 Lab Status: Final result Specimen: Blood Peripheral Updated: 10/29/22 1632 Culture No growth day 5 MRSA DNA PCR [[id number]] (Normal) Collected: 10/23/22 1234 Lab Status: Final result Specimen: Microbiology from Nasal Updated: 10/23/22 2044 MRSA DNA by PCR Not detected Narrative: Methicillin-resistant Staphylococcus aureus (MRSA) DNA is not detected (presumed not colonized withMRSA). CULTURE BLOOD [[id number]] (Normal) Collected: 10/23/22 1216 Lab Status: Final result Specimen: Blood Peripheral Updated: 10/28/22 1702 Culture No growth day 5 CULTURE BLOOD [[id number]] (Normal) Collected: 10/23/22 1205 Lab Status: Final [...] presence of the primary team staff, residents, PT/OT/COMPENSATION ANALYST and CM/SW. Jaime Drew MD Vascular and [...] ??F (39.4 ??C) -- -- -- -- 11/04/22 2129 154/76 -- -- (!) 110 -- -- 11/04/22 2055 146/72 99.8 ??F (37.7 ??C) Axillary 109 [...] bilaterally Labs: Recent Labs Component Name 11/04/22212711/02/22 22211/02/22 0132 10/23/22 0129 10/22/22 0153 WBC 8.4 13.3* 19.3* - - RBC 3.73* 3.44* 3.32* - - HGB 10.9* 10.3* 10.0* - - HCT 34.6* 32.0* 31.1* - - PLT - - - - 199 - = values in this interval not displayed. Recent Labs Component Name 11/04/22212711/04/22 0553 11/02/222220 NA 141 139 138 CL 106 104 103 CO2 23 BUN 8 9 11 CREATININE 0.55* 0.56 0.55* CALCIUM 8.3* 8.6 8.9 No results for input(s): MG in the last 47962 hours. Recent Labs Component Name 11/04/22212711/04/22 0553 11/02/222220 PHOS 3.4 3.8 4.2 Recent Labs Component Name 11/05/22 0350 11/04/22212711/04/22 1617 11/04/22 0931 11/04/22 0553 11/03/22 2353 PT 15.5* - - - 14.5 14.2 INR 1.3 - - - 1.1 1.1 PTT 77.4* 53.3* 131.0* - 96.7* 77.9* - = values in this interval not displayed. No results for input(s): A1C in the last 03587 hours. Recent Labs Component Name 10/20/22 0302 06/15/22 0757 CHOL 173 204* HDL 42 37* LDLCALC 91 117* TRIG 201* 251* Recent Labs Component Name 06/15/22 0757 TSH 1.873 No results for input(s): CKMB, CKTOTAL, CKMB, TROPONINI, BNP in the last [address] ANGIO BRAIN NECK STROKE Result [...] Lopez OT - 11/05/2022 7:50 AM CDT [facility] Acute Rehab update: Patient not yet medically ready to transfer to [place] today. Per bedside RN Shahab, patient remains on heparin drip this morning. Notified team, no documented BM since 10/30. U CL will follow up tomorrow. Thanks! Gianna Lopez OTR/Amy Clinical Liaison [facility] [phone] * Susi Glez MD - 11/05/2022 7:29 AM CDT Neurosurgery called to bedside. Patient reportedly hit her head while being adjusted in bed underneath crani site. Patient began complaining of severe headaches. On exam, patient somnolent but awakens to gentle stimulation, follows commands on RUE and RLE. Repeat CT shows stable hemicrani site, no signs of ICH Henry removed at bedside today. Wound healing well. [...] findings of outpatient SARAH. Lul Miguel PA-C [phone] * Awilda Li RN - 11/05/2022 6:37 [...] Lopez OT - 11/04/2022 2:40 PM CDT [facility] Acute Rehab update: Per Dr. Muller - patient likely to be medically ready for d/c tomorrow. Will follow up in the morning. Would have private room available at [facility]. Addendum: Per chart review, last documented BM 10/30 - would need more recent BM before patient can transfer to rehab once team determines she is medically ready. Thanks for referral, Gianna Lopez OTR/L Clinical Liaison [facility] [phone] * Jaime Drew MD - 11/04/2022 1:21 [...] 3.7 CL 104 103 108* 105 CO2 22 25 BUN 9 11 10 8 [...] Procedure Component Value - Date/Time CULTURE URINE [[id number]] (Normal) Collected: 10/27/22 1208 Lab Status: Final result Specimen: Urine Clean Catch Updated: 10/28/22 2236 Culture Urine No growth (<100 CFU/mL) CULTURE BLOOD FUNGUS [[id number]] (Normal) Collected: 10/27/22 115 Lab Status: Preliminary result Specimen: Blood Peripheral Updated: 10/30/22 0628 Culture No fungus isolated CULTURE BLOOD AFB [[id number]] (Normal) Collected: 10/27/221157 Lab Status: Preliminary result Specimen: Blood Peripheral Updated: 10/30/22 0750 Culture No acid-fast bacillus isolated BARTONELLA SPECIES PCR [[id number]] Collected: 10/27/221157 Lab Status: Final result Specimen: [...] developed and its performance characteristics determined by [facility]. It has not been cleared or approved by the US Food and Drug Administration. This test was performed in a CLIA certified laboratory and is intended for clinical purposes. Performed By: [facility] [address] [place] [address] Transportation Security Screener: Boo Bond MD, PhD CLIA Number: [id number] CULTURE BLOOD [[id number]] (Normal) Collected: 10/25/22 0900 Lab Status: Final result Specimen: Blood Peripheral Updated: 10/30/22 1330 Culture No growth day 5 CULTURE BLOOD [[id number]] (Normal) Collected: 10/24/22 1313 Lab Status: Final result Specimen: Blood Peripheral Updated: 10/29/22 1632 Culture No growth day 5 MRSA DNA PCR [[id number]] (Normal) Collected: 10/23/22 1234 Lab Status: Final result Specimen: Microbiology from Nasal Updated: 10/23/222043 MRSA DNA by PCR Not detected Narrative: Methicillin-resistant Staphylococcus aureus (MRSA) DNA is not detected (presumed not colonized withMRSA). CULTURE BLOOD [[id number]] (Normal) Collected: 10/23/22 1216 Lab Status: Final result Specimen: Blood Peripheral Updated: 10/28/22 1702 Culture No growth day 5 CULTURE BLOOD [[id number]] (Normal) Collected: 10/23/22 1205 Lab Status: Final [...] presence of the primary team staff, residents, PT/OT/COMPENSATION ANALYST and CM/SW. Jaime Drew MD Vascular and Interventional Neurology * Jovanni Mcgrath PharmD - 11/04/2022 12:47 PM CDT ACTIVE CONSULTS TO PHARMACY/DISEASE STATE MONITORING Pharmacy Consult: Vancomycin ASSESSMENT/PLAN Indication: suspected infective endocarditis c/b septic emboli to 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 Goal Trough: 15-20 mcg/ml ID consulted/following: Yes [...] needed. Jovanni Mcgrath, PharmD 12:41 PM 11/04/2022 [facility] Vancomycin Guideline SUBJECTIVE/OBJECTIVE Consuelo Darby is a [...] 8 WBC - 13.3* 19.3* 20.6* 19.6* @[address]@ Dialysis Orders (72h ago, onward) None Vancomycin Administrations from [facility] (last [...] who is agreeable to private room at [facility] if it becomes available before [facility]. [facility] liaison aware and following for admission. Orientation Level: Oriented to Person: Family Support (Name and Phone): Extended Emergency Contact Information Primary Emergency Contact: MehnazHi Address: [address] [place] [address] [place] [address] [facility] Relation: Spouse Secondary Emergency Contact: Sandra Disla [facility] Mobile Relation: Mother Transportation at Discharge: Ambulance: READMISSION RISK SCORE is 16 at 12:46 PM 11/04/2022.: Name: JAYLENE Haines * Bess Triana COTA - 11/04/2022 11:14 AM CDT [facility] Physical Medicine and Rehabilitation Occupational Therapy Splint Check Note Patient Name Consuelo Darby Date of 1980 Age [age] year old Type of Splint: Left foot drop and resting hand Splint Issued by: Not applicable-follow up visit Splint Check Completed: No issues noted. Skin intact and splint fitting appropriately Treatment Plan: Sap Sd Analyst education completed.; 2 hrs on 2 hrs [...] creatinine clearance: 149.5 mL/min @SOEND@ * Vickie Mulelr MD - 11/04/2022 9:07 AM CDT Stroke Service Daily Progress Note Consuelo Darby Age: [age] year old Date of : 1980 Date of Admission: 10/19/2022 Hospital Day: 16 Subjective Consuelo aDrby is a 41yo woman hemiplegic migraine, GERD, [...] displayed. Recent Labs Component Name 11/04/22 0553 11/02/22222011/02/22131 NA 139 138 138 CL 104 103 108* CO2 BUN 9 11 10 CREATININE 0.56 0.55* 0.48* CALCIUM 8.6 8.9 8.6 No results for input(s): MG in the last 19117 hours. Recent Labs Component Name 11/04/22 0553 11/02/22222011/02/22131 PHOS 3.8 4.2 4.5 Recent Labs Component Name 11/04/22 0553 11/03/22 2353 11/03/22 1626 11/03/22 1048 11/03/22 0449 PT 14.5 14.2 - - 15.1* INR 1.1 1.1 - - 1.2 PTT 96.7* 77.9* 58.8* - 89.3* - = values in this interval not displayed. No results for input(s): A1C in the last 57282 hours. Recent Labs Component Name 10/20/22 0302 06/15/22 0757 CHOL 173 204* HDL 42 37* LDLCALC 91 117* TRIG 201* 251* Recent Labs Component Name 06/15/22 0757 TSH 1.873 No results for input(s): CKMB, CKTOTAL, CKMB, TROPONINI, BNP in the last [address] ANGIO BRAIN NECK STROKE Result [...] to janete Amy Johnson hemainopsia, mild dysarthria, andextinction. NIHSS: 7. S/p [...] 138 139 CL 103 108* 105 CO2 25 BUN 11 10 8 CREATININE 0.55* 0.48* 0.56 CALCIUM 8.9 8.6 8.7 No results for input(s): MG in the last 59117 hours. Recent Labs Component Name 11/02/22222011/02/222 11/01/22 [...] results for input(s): A1C in the last 82280 hours. Recent Labs Component Name 10/20/22 0302 06/15/22 0757 CHOL 173 204* HDL 42 37* LDLCALC 91 117* TRIG 201* 251* Recent Labs Component Name 06/15/22 0757 TSH 1.873 No results for input(s): CKMB, CKTOTAL, CKMB, TROPONINI, BNP in the last [address] ANGIO BRAIN NECK STROKE Result [...] Troy, OT - 11/03/2022 3:16 PM CDT [facility] Physical Medicine and Rehabilitation Occupational Therapy Progress Note Patient: Consuelo Darby Med Record Number: [id number] Date of : 1980 Age: [age] year old PPE worn by staff: gloves;mask - surgical brace maker: Cheli Recommendations: Discharge OT Discharge Recommendations: Patient [...] Appearance: Pt in bed upon arrival in [facility]. LDA: PIV, puentes catheter, PEG Mental [...] ACTIVITY TOLERANCE: Patient's activity tolerance: good Modified Gove: Current Modified Maryann Score: 5 AM-PAC 6 [...] with good endurance and with minimal pain Slat Basket Maker Helper Machine Goal(s): Patient to discharge to appropriate next [...] Hinojosa RN - 11/03/2022 3:03 PM CDT [facility] has been accepted, Insurance authorization obtained, pending private room. Pt agreeable to [facility] location. Please contact weekend liaison for bed availability if pt is medically ready for transfer. Liaison can be contacted by phone or [employer] Chat. ?? Weekend Liaison: Gianna oLpez Thank you for the referral. Becky Hinojosa RN, BSN Senior Clinical Liaison [facility] [phone] * Maru Mcduffie RN - 11/03/2022 12:39 PM CDT Care Coordination Progress Note Anticipated level of care at discharge: Acute Rehab Facility: Anticipated level of care provider: None: Anticipated Discharge Date: 11/03/22: Discharge Plan: SW following for [facility] placement. CM met with pt's family at the bedside and they are agreeable with the plan. Orientation Level: Unable to Obtain: Family Support (Name and Phone): Extended Emergency Contact Information Primary Emergency Contact: Hi Darby Address: [address] [place] [address] [place] [address] [facility] Relation: Spouse Secondary Emergency Contact: Sandra Disla [facility] Mobile Relation: Mother Transportation at Discharge: Ambulance: READMISSION RISK SCORE is 16 at 12:39 PM 11/03/2022.: Name: Maru Mcduffie RN [id number] * Salinas Infante MSW - 11/03/2022 10:35 AM CDT SW was notified pt recd for IRF/acute rehab. Previous SW spoke to [facility] Rehab and they are following up w/ pt family at bedside to discuss. SW to follow. 1110 - SW notified pt family agreeable to [facility] Rehab. SW also called and spoke w/ [...] Ankit Spivey - 11/03/2022 10:14 AM CDT [facility] Physical Medicine and Rehabilitation Physical Therapy Progress Note Patient: Consuelo Darby Med Record Number: [id number] Date of : 1980 Age: [age] year [...] and cognitive stimulation Modified Maryann: Current Modified Gove Score: 5 AM-PAC 6 Clicks Mobility Raw [...] EOB x10 minutes with minimal assist ?? Retirement Goal(s): Patient to discharge to appropriate next [...] visible on white board. * Orquidea Pederson, TIO/LD - 11/03/2022 8:12 AM CDT Clinical Nutrition [...] Pain affecting intake: No Estimated Needs: KCAL: [id number] (30-35 kcal/kg IBW) Protein (g): 82g (1.5 [...] Orquidea Pederson RD/ABIMBOLA, LD Ascom: [phone] * Jessica Enriquez RN - [...] Troy OT - 11/02/2022 12:52 PM CDT [facility] Physical Medicine and Rehabilitation Occupational Therapy Progress Note Patient: Consuelo Darby Med Record Number: [id number] Date of : 1980 Age: [age] year [...] Appearance: Pt in bed upon arrival in [facility]. LDA: PIV, puentes catheter, PEG Vitals: [...] ACTIVITY TOLERANCE: Patient's activity tolerance: fair Modified Gove: Current Modified Maryann Score: 5 AM-PAC 6 [...] with good endurance and with minimal pain Retirement Goal(s): Patient to discharge to appropriate next [...] suspected infective endocarditis c/b septic emboli to 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 Goal Trough: 15-20 mcg/ml ID consulted/following: Yes [...] function and cultures as needed. Shania Jha, ManuelD 12:30 PM 11/02/2022 [facility] Vancomycin Guideline SUBJECTIVE/OBJECTIVE Consuelo Darby is a [...] 8 11 WBC 19.3* 20.6* 19.6* 17.9* @[id number]@ Dialysis Orders (72h ago, onward) None Radiocontrast [...] Ankit Spivey - 11/02/2022 11:41 AM CDT [facility] Physical Medicine and Rehabilitation Physical Therapy Progress Note Patient: Consuelo Darby Med Record Number: [id number] Date of : 1980 Age: [age] year [...] and cognitive stimulation Modified Maryann: Current Modified Gove Score: 5 AM-PAC 6 Clicks Mobility Raw [...] sit EOB x10 minutes with minimal assist Slat Basket Maker Helper Machine Goal(s): Patient to discharge to appropriate next [...] frontal gyrus/frontal operculum, consistent with an evolving ntzptwxt-px-ynbxjmn infarct. 4.No significant midline shift. Similar-appearing size [...] report is dictated by Kayla Stevenson MD (president mortgage company) 1 Lonnie Ornelas MD have personally reviewed [...] results were discussed with stroke resident Dr eMndez by Dr. Miranda Bowen at8:05 AM on 10/26/2022 with read back confirmation and closed-loop communication. The report is dictated by Miranda Bowen MD (president mortgage company) Oriana Ornelas MD have personally reviewed and [...] verification. > Dictated by Clarisa Cantrell MD (president mortgage company). [employer] have personally reviewed and interpreted this [...] report is dictated by Miranda Bowen MD (president mortgage company) Jnoi Ornelas MD have personally reviewed and interpreted [...] right lateral ventricle, and approximately 3-4 mm okdee-tq-udki midline shift, grossly similar to the prior. [...] verification. Report dictated by Tim Major MD (president mortgage company). I, Jasepr Sifuentes MD have personally reviewed and interpreted [...] insertion. The externally removable 24 Fr Ramez- CanaryHop gastrostomy tube was lubricated. The G-tube was [...] be performed given no participation in of COMPENSATION ANALYST evaluation S/p peg placed 11/01 Recommendations: - [...] Jerod Calderon MD Gastroenterology & Hepatology Fellow [facility] Associated attestation - Khanh Metz MD - 11/02/2022 10:43 AM CDT I have personally seen and examined this patient. I agree with the customs house broker's findings, assessment and plan as outlined. Doing well. Some pain at PEG site Site clean, dry. No cellulitis CT reviewed. Good position May start TF's today * Bridgett Zazueta, COMPENSATION ANALYST - 11/02/2022 9:44 AM CDT [facility] Physical Medicine and Rehabilitation Bedside Swallow Assessment Patient: Consuelo Darby Med Record Number: [id number] Date of : 1980 Age: [age] year [...] clear and barely audible. Education/Interventions: While performing COMPENSATION ANALYST, Patient, spouse, mother and father and RN [...] oropharyngeal swallow function to warrant diet upgrade. Retirement Goal (s): Other: patient will tolerate least [...] results for input(s): MG in the last 87669 hours. Recent Labs Component Name 11/02/22 0132 [...] results for input(s): A1C in the last 77779 hours. Recent Labs Component Name 10/20/22 0302 06/15/22 0757 CHOL 173 204* HDL 42 37* LDLCALC 91 117* TRIG 201* 251* Recent Labs Component Name 06/15/22 0757 TSH 1.873 No results for input(s): CKMB, CKTOTAL, CKMB, TROPONINI, BNP in the last [address] ANGIO BRAIN NECK STROKE Result [...] elopement &/or abduction during hospitalization is minimized 2022 1810 by Radha Covarrubias RN Outcome: Progressing 2022 1635 by Radha Covarrubias RN Outcome: Progressing Problem: Pain/Discomfort Goal: Patient uses pharmacological and non-pharmacological pain management strategies. 2022 1810 by Radha Covarrubias RN Outcome: Progressing 2022 1635 by Radha Covarrubias RN Outcome: Progressing Goal: Patient verbalizes acceptable level of pain relief and ability to engage in desired activity. 2022 181 by Radha Covarrubias RN Outcome: [...] by Radha Covarrubias RN Outcome: Progressing 2022 163 by Radha Covarrubias RN Outcome: Progressing Goal: Patient reports the ability to perform Activities of Daily Living. 11/01/20221809 by Radha Covarrubias RN Outcome: Progressing 2022 163 by Radha Covarrubias RN Outcome: Progressing Problem: Communication Impairment/Dysarthria Goal: Ability to express needs and understand communication 11/01/20221809 by Radha Covarrubias RN Outcome: Progressing 2022 163 by Radha Covarrubias RN Outcome: Progressing Problem: Nutrition Goal: Nutritional status is improving 11/01/20221809 by Radha Covarrubias RN Outcome: Progressing 2022 163 by Radha Covarrubias RN Outcome: Progressing Problem: Glycemic Control Goal: Clinical indication of glycemia balance is achieved 11/01/20221809 by Radha Covarrubias RN Outcome: Progressing 2022 1635 by Radha Covarrubias RN Outcome: Progressing Problem: Knowledge Deficit,Education,Discharge Plan Goal: The patient/family will understand cerebrovascular disease and its symptoms, treatment and management 11/01/20221809 by Radha Covarrubias RN Outcome: Progressing 2022 163 by Radha Covarrubias RN Outcome: Progressing Problem: [...] by Radha Covarrubias RN Outcome: Progressing 2022 163 by Radha Covarrubias RN Outcome: Progressing Problem: [...] by Radha Covarrubias RN Outcome: Progressing 2022 163 by Radha Covarrubias RN Outcome: Progressing Goal: Patient will respond to interventions when potential or actual loss of control occurs. 11/01/20221809 by Radha Covarrubias RN Outcome: Progressing 2022 163 by Radha Covarrubias RN Outcome: Progressing Goal: Patient will refrain from provoking others to physical harm. 11/01/20221809 by Radha Covarrubias RN Outcome: Progressing 2022 163 by Radha Covarrubias RN Outcome: Progressing Goal: Patient will display nonviolent behaviors toward others in the hospital, with the aid of medications and nursing interventions. 11/01/20221809 by Radha Covarrubias RN Outcome: Progressing 2022 163 by Radha Covarrubias RN Outcome: Progressing Goal: Patient will seek help when experiencing aggressive impulses. 11/01/20221809 by Radha Covarrubias RN Outcome: Progressing 2022 163 by Radha Covarrubias RN Outcome: Progressing Goal: Patient will refrain from verbal threats and loud, profrane language toward others. 11/01/20221809 by Radha Covarrubias RN Outcome: Progressing 2022 1635 by Radha Covarrubias RN Outcome: Progressing Goal: Patient will be safe and free from injury. 11/01/20221809 by Radha Covarrubias RN Outcome: Progressing 2022 163 by Radha Covarrubias RN Outcome: Progressing Problem: Skin Integrity Goal: Skin integrity is maintained or improved 11/01/20221809 by Radha Covarrubias RN Outcome: Progressing 2022 1635 by Radha Covarrubias RN Outcome: Progressing Problem: Neurological Deficit Goal: Neurological status is stable or improving 11/01/20221809 by Radha Covarrubias RN Outcome: Progressing 11/01/20221634 by Radha Covarrubias RN Outcome: Progressing * [...] 2022 4:07 PM CDT Pt transferred to 52, DOC and family notified. Four eyes skin check done with Jaye BOGGS, surgical sight to L. Head with carla, incision sight to R. Femoral area, puentes and L. Hand brace noted. * Cass Benjamin, JOSETTE - 2022 3:49 PM CDT [facility] Department of Physical Medicine & Rehabilitation Progress Note Patient: Consuelo Darby Med Record Number: [id number] Date of : 1980 Age: [age] year old 11/01/22 1549 Therapy on Hold Therapy on Hold Chart Reviewed; Pt s/p EGD with PEG under general anesthesia. New Order Required for Therapy Cass Lu M.S., [facility]-COMPENSATION ANALYST Speech Language Pathologist [id number] * Jerod Calderon [...] Jerod Calderon MD Gastroenterology & Hepatology Fellow [facility] * Elizabeth William PT - 2022 3:08 PM CDT [facility] Department of Physical Medicine & Rehabilitation Progress Note Patient: Consuelo Darby [facility] Record Number: [id number] Date of : 1980 Age: [age] year old 11/01/22 1508 Missed Visit Missed Visit Procedure Off Floor (going for PEG today) * Ronda Crawley OT - 2022 1:30 PM CDT [facility] Department of Physical Medicine & Rehabilitation Progress Note Patient: Consuelo Darby [facility] Record Number: [id number] Date of : 1980 Age: [age] year [...] results for input(s): MG in the last 18043 hours. Recent Labs Component Name 11/01/22 0003 [...] results for input(s): A1C in the last 72876 hours. Recent Labs Component Name 10/20/22 0302 06/15/22 0757 CHOL 173 204* HDL 42 37* LDLCALC 91 117* TRIG 201* 251* Recent Labs Component Name 06/15/22 0757 TSH 1.873 No results for input(s): CKMB, CKTOTAL, CKMB, TROPONINI, BNP in the last [address] ANGIO BRAIN NECK STROKE Result Date: 10/19/2022 PROCEDURE: CT ANGIO BRAIN NECK STROKE, DATE/TIME OF EXAM: 10/19/2022 8:16 AM, LOCATION [facility] INDICATION: Code Stroke ADDITIONAL CLINICAL INFORMATION: Ordering [...] DATE/TIME OF EXAM: 10/19/2022 8:04 AM, LOCATION [facility] INDICATION: Code Stroke ADDITIONAL CLINICAL INFORMATION: Ordering [...] occlusion of the R EIA + proximal CHILDRENS CLUB ATTENDANT 10/26: reached goal aptt overnight. Neuro exam [...] for occlusion of R EIA and proximal CHILDRENS CLUB ATTENDANT. Thrombectomy and patch angioplasty done 10/31: GI [...] occlusion of the R EIA + proximal CHILDRENS CLUB ATTENDANT likely iatrogenic Plan Neurological R MCA M1 [...] - Diet: Goal TF Vital 55cc/hr, FWF 121two1i - GI ppx: Lansoprozole - Last BM: [...] #Occlusion of the R EIA + proximal CHILDRENS CLUB ATTENDANT likely iatrogenic - vascular surgery; OR today [...] bedside Fariha Rosales MD Neurology Resident. PGY-3 [facility]. Associated attestation - Julio Cesar Arriaza MD [...] Barbara Arteaga - 10/31/2022 4:45 PM CDT Division Engineer offered support to Consuelo, her Salo and mom Sandra; psychological anthropologist asked if Consuelo hadgotten her peg today and Salo said she would get it in a day or two. Division Engineer asked how Consuelo's vascular surgery went and Sandra shared that Consuelo's leg was hurting; Consuelo held up 4 fingers when asked to rate her pain scale. RN at bedside and indicated he had just administered pain meds. 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 Yoon Cuadra, ManuelD 1:04 PM 10/31/2022 [facility] Vancomycin Guideline * Ronda Crawley, OT - 10/31/2022 2:12 PM CDT [facility] Physical Medicine and Rehabilitation Occupational Therapy Splint [...] results for input(s): MG in the last 72769 hours. Recent Labs Component Name 10/31/22 0022 [...] results for input(s): A1C in the last 55416 hours. Recent Labs Component Name 10/20/22 0302 06/15/22 0757 CHOL 173 204* HDL 42 37* LDLCALC 91 117* TRIG 201* 251* Recent Labs Component Name 06/15/22 0757 TSH 1.873 No results for input(s): CKMB, CKTOTAL, CKMB, TROPONINI, BNP in the last [address] ANGIO BRAIN NECK STROKE Result Date: 10/19/2022 PROCEDURE: CT ANGIO BRAIN NECK STROKE, DATE/TIME OF EXAM: 10/19/2022 8:16 AM, LOCATION [facility] INDICATION: Code Stroke ADDITIONAL CLINICAL INFORMATION: Ordering [...] DATE/TIME OF EXAM: 10/19/2022 8:04 AM, LOCATION [facility] INDICATION: Code Stroke ADDITIONAL CLINICAL INFORMATION: Ordering [...] Other (Comment) (has not been assessed by COMPENSATION ANALYST) Pain affectingintake: No Estimated Needs: KCAL: [id number] (25-30kcal/kg of IBW) Protein (g): 66-77 (1.2-1.4gm/kg [...] occlusion of the R EIA + proximal CHILDRENS CLUB ATTENDANT 10/26: reached goal aptt overnight. Neuro exam [...] for occlusion of R EIA and proximal CHILDRENS CLUB ATTENDANT. Thrombectomy and patch angioplasty done Interval History: [...] occlusion of the R EIA + proximal CHILDRENS CLUB ATTENDANT likely iatrogenic Plan Neurological R MCA M1 occlusion s/p MT with TICI 2B recanalization S/P TNK administration. S/P [facility] Malignant MCA syndrome - S/P hemicrani on [...] - Diet: Goal TF Vital 55cc/hr, FWF 771oow7m - GI ppx: Lansoprozole - Last BM: [...] #Occlusion of the R EIA + proximal CHILDRENS CLUB ATTENDANT likely iatrogenic - vascular surgery; OR today [...] bedside Fariha Rosales MD Neurology Resident. PGY-3 [facility]. Associated attestation - Julio Cesar Arriaza MD [...] 0010 10/28/22 0125 10/27/22202810/27/22 0608 10/27/22 0054 10/23/22 0129 10/22/22 0153 [...] frontal gyrus/frontal operculum, consistent with an evolving clmcepgk-jz-glxfzmd infarct. 4.No significant midline shift. Similar-appearing size [...] report is dictated by Kayla Stevenson MD (president mortgage company) 1 I, Lonnie Rae MD have personally [...] report is dictated by Miranda Bowen MD (president mortgage company) IOriana MD have personally reviewed and interpreted [...] verification. > Dictated by Clarisa Cantrell MD (president mortgage company). [employer] have personally reviewed and interpreted this [...] report is dictated by Miranda Bowen MD (president mortgage company) Joni Ornelas MD have personally reviewed and [...] right lateral ventricle, and approximately 3-4 mm hkpxg-vf-xert midline shift, grossly similar to the prior. [...] verification. Report dictated by Tim Major MD (president mortgage company). I, Jasper Sifuentes MD have personally reviewed [...] be performed given no participation in of COMPENSATION ANALYST evaluation Patient seems to have a functional [...] Jerod Calderon MD Gastroenterology & Hepatology Fellow [facility] Associated attestation - Khanh Metz MD - 10/31/2022 2:27 PM CDT I have personally seen and examined this patient. I agree with the customs house broker's findings, assessment and plan as outlined. In [...] report is dictated by Miranda Bowen MD (president mortgage company) Oriana Ornelas MD have personally reviewed and [...] comprehension and verification. > Dictated by Clarisa Canterll MD (president mortgage company). [employer] have personally reviewed and interpreted this [...] report is dictated by Miranda Bowen MD (president mortgage company) Joni Ornelas MD have personally reviewed and [...] right lateral ventricle, and approximately 3-4 mm kyilu-pc-khru midline shift, grossly similar to the prior. [...] verification. Report dictated by Tim Major MD (president mortgage company). IJasper MD have personally reviewed and interpreted [...] occlusion of the R EIA + proximal CHILDRENS CLUB ATTENDANT extending into the profunda with reconstitution identified [...] ABIs. Message sent to schedulers, please call [phone] to reschedule. Patient can call [phone] for any incision or wound concerns. Patient [...] 113/58 -- -- 75 17 97 % 08/20/23 2233 -- -- -- -- 17 97 [...] Primary Emergency Contact: Hi Darby Address: [address] [place] [address] [place] [address] [facility] Relation: Spouse Secondary Emergency Contact: NighatSandra joiner [facility] Mobile Relation: Mother Transportation at Discharge: Ambulance: READMISSION RISK SCORE is 15 at 7:22 PM 10/30/2022.: Name: Bulmaro Ochoa RN BSN credit manager [phone] * Vickie Muller MD - 10/30/2022 6:26 [...] 113/58 -- -- 75 17 97 % 10/29/222232 -- -- -- -- 17 97 % [...] results for input(s): MG in the last 99589 hours. Recent Labs Component Name 10/30/22 0017 [...] results for input(s): A1C in the last 99527 hours. Recent Labs Component Name 10/20/22 0302 06/15/22 0757 CHOL 173 204* HDL 42 37* LDLCALC 91 117* TRIG 201* 251* Recent Labs Component Name 06/15/22 0757 TSH 1.873 No results for input(s): CKMB, CKTOTAL, CKMB, TROPONINI, BNP in the last [address] ANGIO BRAIN NECK STROKE Result Date: 10/19/2022 PROCEDURE: CT ANGIO BRAIN NECK STROKE, DATE/TIME OF EXAM: 10/19/2022 8:16 AM, LOCATION [facility] INDICATION: Code Stroke ADDITIONAL CLINICAL INFORMATION: Ordering [...] DATE/TIME OF EXAM: 10/19/2022 8:04 AM, LOCATION [facility] INDICATION: Code Stroke ADDITIONAL CLINICAL INFORMATION: Ordering [...] and imaging reviewed with Dr. Anne. Dr Anen saw patient bedside with team and discussed [...] Leigh SLP - 10/30/2022 1:30 PM CDT [facility] Department of Physical Medicine & Rehabilitation Progress Note Patient: Consuelo Darby [facility] Record Number: [id number] Date of : 1980 Age: [age] year old 10/30/22 1300 Therapy on Hold Therapy on Hold Surgery;Chart Reviewed;New Order Required for Therapy Jerry Valle M.A., [facility]-COMPENSATION ANALYST Speech Language Pathologist [id number] * Ronda Crawley OT - 10/30/2022 1:14 PM CDT [facility] Department of Physical Medicine & Rehabilitation Progress Note Patient: Consuelo Darby [facility] Record Number: [id number] Date of : 1980 Age: [age] year [...] occlusion of the R EIA + proximal CHILDRENS CLUB ATTENDANT 10/26: reached goal aptt overnight. Neuro exam [...] for occlusion of R EIA and proximal CHILDRENS CLUB ATTENDANT Objective BP 139/74 Pulse 80 Temp 98.1 [...] occlusion of the R EIA + proximal CHILDRENS CLUB ATTENDANT likely iatrogenic Plan Neurological R MCA M1 [...] after hemicrani on 10/20. Extubated 10/24, to [place] - Bronchial hygiene q4h, vest and if [...] - Diet: Goal TF Vital 55cc/hr, FWF 439ors7b - GI ppx: Lansoprozole - Last BM: [...] #Occlusion of the R EIA + proximal CHILDRENS CLUB ATTENDANT likely iatrogenic - vascular surgery; OR today [...] bedside Fariha Rosales MD Neurology Resident. PGY-3 [facility]. * Edgardo Suarez RN - 10/30/2022 10:53 AM CDT HOB elevated, Neuro checks, NPO for procedure, doppler RLE pedals. * Edgardo Suarez RN - 10/30/2022 9:50 AM CDT Report given to HUMAN RESOURCES BENEFITS ASSISTANT. Pt trans to OR with RN and [...] thrombectomy - maintain normothermic and euglycemic - PT/OT/COMPENSATION ANALYST - outpt follow-up for 3mm left upper [...] for occlusion of R EIA and proximal CHILDRENS CLUB ATTENDANT Objective BP 129/61 Pulse 78 Temp 98.4 [...] Component Value Units Date/Time VANCOMYCIN LEVEL TROUGH [[id number]] Order Status: Sent Specimen: Blood PTT [facility] [[id number]] (Abnormal) Collected: 10/30/22236 Order Status: Completed Specimen: Blood Updated: 10/30/22325 APTT 77.7 Seconds Comment: Suggested therapeutic range for full dose I.V. unfractionated heparin therapy for venous thromboembolism is 71 to 109 seconds. PT-INR [facility] [[id number]] (Normal) Collected: 10/30/22236 Order Status: Completed Specimen: Blood Updated: 10/30/22325 PT 13.6 Seconds INR 1.0 Comment: The suggested therapeutic range for standard coumadin (warfarin) therapy is an INR of 2.0-3.0. For high-risk patients (Mechanical Mitral Valve Prosthesis, etc.), the suggested prophylactic therapeutic range is an INR of 2.5-3.5. PTT [facility] [[id number]] Order Status: Sent Specimen: Blood DIFFERENTIAL MANUAL [[id number]] (Abnormal) Collected: 10/30/2216 Order Status: Completed Specimen: [...] Increased Anisocytosis Occasional Macrocytosis Few Polychromasia Few [place] Bodies Rare Ovalocytes Rare [place] Cells Occasional Smudge Cells Rare Comment Platelet Platelet clumpled on the smear but appear increased. HCG BETA BLOOD QUANTITATIVE [[id number]] Collected: 10/30/2216 Order Status: Completed Specimen: Blood [...] used for any other purposes. PHOSPHORUS BLOOD [[id number]] (Normal) Collected: 10/30/2216 Order Status: Completed Specimen: Blood Updated: 10/30/22102 Phosphorus 5.1 mg/dL MAGNESIUM BLOOD [[id number]] (Normal) Collected: 10/30/2216 Order Status: Completed Specimen: Blood Updated: 10/30/22102 Magnesium 2.1 mg/dL BASIC METABOLIC PANEL (CALCIUM TOTAL) [[id number]] (Abnormal) Collected: 10/30/2216 Order Status: Completed Specimen: Blood Updated: 10/30/22102 BUN 11 mg/dL Creatinine 0.61 mg/dL Sodium 141 mmol/L Potassium 4.0 mmol/L Chloride 107 mmol/L CO2 25 mmol/L Glucose 134 mg/dL Calcium 8.8 mg/dL Anion Gap 13 BUN/Creatinine Ratio 18 Osmolality Calculated 293 mOsm/kg eGFR by CKD-EPI >90 mL/min/1.73 m2 CBC W AUTO DIFFERENTIAL [[id number]] (Abnormal) Collected: 10/30/2216 Order Status: Completed Specimen: [...] Auto 1.0 /100 WBC HCG URINE QUALITATIVE [[id number]] Collected: 10/30/2220 Order Status: Canceled Specimen: Urine Updated: 10/30/2226 MYCOPLASMA PNEUMONIAE AB IGM [[id number]] Collected: 10/27/221157 Order Status: Completed Specimen: Blood [...] more than 12 months post-infection. Performed By: [facility] [address] [place] [id number] Transportation Security Screener: Boo Bond MD, PhD IA Number: [id number] MYCOPLASMA PNEUMONIAE AB IGG [[id number]] Collected: 10/27/221157 Order Status: Completed Specimen: Blood [...] other is below 0.20 U/L. Performed By: [facility] [address] [place] [address] 239[address] Transportation Security Screener: Boo Bond MD, PhD CLIA Number: [id number] BARTONELLA HENSELAE ANTIBODY IGM [[id number]] Collected: 10/27/221157 Order Status: Completed Specimen: Blood [...] developed and its performance characteristics determined by [facility]. It has not been cleared or approved by the [place] Food and Drug Administration. This test was performed in a CLIA certified laboratory and is intended for clinical purposes. Performed By: [facility] [address] [place] [address] 19264 Transportation Security Screener: Boo Bond MD, PhD CLIA Number: [id number] BARTONELLA HENSELAE ANTIBODY IGG [[id number]] Collected: 10/27/221157 Order Status: Completed Specimen: Blood [...] developed and its performance characteristics determined by [facility]. It has not been cleared or approved by the [place] Food and Drug Administration. This test was performed in a CLIA certified laboratory and is intended for clinical purposes. Performed By: [facility] [address] [place] [address] Transportation Security Screener: Boo Bond MD, PhD CLIA Number: [id number] CHLAMYDIA ANTIBODY IGG/IGM PANEL [[id number]] Collected: 10/27/22 1158 Order Status: Completed Specimen: Blood Updated: 10/29/222131 [...] developed and its performance characteristics determined by [facility]. It has not been cleared or approved by the [place] Food and Drug Administration. This test was performed in a CLIA certified laboratory and is intended for clinical purposes. Performed By: [facility] [address] [place] [address] Transportation Security Screener: Boo Bond MD, PhD CLIA Number: [id number] PTT [facility] [[id number]] (Abnormal) Collected: 10/29/222001 Order Status: Completed Specimen: Blood Updated: 10/29/22 2041 APTT 70.7 Seconds Comment: Suggested therapeutic range for full dose I.V. unfractionated heparin therapy for venous thromboembolism is 71 to 109 seconds. PTT [facility] [[id number]] (Abnormal) Collected: 10/29/22 1541 Order Status: Completed Specimen: Blood Updated: 10/29/22 1628 APTT 64.4 Seconds Comment: Suggested therapeutic range for full dose I.V. unfractionated heparin therapy for venous thromboembolism is 71 to 109 seconds. PTT [facility] [[id number]] (Abnormal) Collected: 10/29/22 1004 Order Status: Completed [...] report is dictated by Kayla Stevenson MD (president mortgage company) 1 I, Lonnie Rae MD have personally [...] report is dictated by Miranda Bowen MD (president mortgage company) Oriana Ornelas MD have personally reviewed and [...] verification. > Dictated by Clarisa Cantrell MD (president mortgage company). [employer] have personally reviewed and interpreted this [...] report is dictated by Miranda Bowen MD (president mortgage company) Joni Ornelas MD have personally reviewed and [...] right lateral ventricle, and approximately 3-4 mm hegqt-er-sufp midline shift, grossly similar to the prior. [...] verification. Report dictated by Tim Major MD (president mortgage company). Jasper Ornelas MD have personally reviewed and [...] The report is dictated by Miranda Bowen MD(president mortgage company) Jasper Ornelas MD have personally reviewed and [...] dictated by Lorenzo Horta MD (vice president regulatory). ILonnie MD have personally reviewed and interpreted [...] Dictated by Bassam Jovel M.D. (vice president regulatory) Gonazlez Ornelas MD have personally reviewed and interpreted [...] febrile Gastrointestinal # Hx of GERD - COMPENSATION ANALYST swallow evaluation: when stable - Diet: NG [...] #Occlusion of the R EIA + proximal CHILDRENS CLUB ATTENDANT likely iatrogenic - vascular surgery following - [...] bedside Cordero Kyle Prado Medical Student, MS3 [facility]. Associated attestation - Julio Cesar Arriaza MD [...] report is dictated by Miranda Bowen MD (president mortgage company) Oriana Ornelas MD have personally reviewed and [...] verification. > Dictated by Clarisa Cantrell MD (president mortgage company). [employer] have personally reviewed and interpreted this [...] report is dictated by Miranda Bowen MD (president mortgage company) Joni Ornelas MD have personally reviewed and [...] right lateral ventricle, and approximately 3-4 mm egkqa-hp-kujv midline shift, grossly similar to the prior. [...] verification. Report dictated by Tim Major MD (president mortgage company). I, Jasper Sifuentes MD have personally reviewed [...] occlusion of the R EIA + proximal CHILDRENS CLUB ATTENDANT extending into the profunda with reconstitution identified [...] occlusion of the R EIA + proximal CHILDRENS CLUB ATTENDANT 10/26: reached goal aptt overnight. Neuro exam [...] occlusion of the R EIA + proximal CHILDRENS CLUB ATTENDANT likely iatrogenic Plan Neurological R MCA M1 [...] after hemicrani on 10/20. Extubated 10/24, to [place] - Bronchial hygiene q4h, vest and if [...] - Diet: Goal TF Vital 55cc/hr, FWF [id number] - GI ppx: Lansoprozole - Last BM: [...] #Occlusion of the R EIA + proximal CHILDRENS CLUB ATTENDANT likely iatrogenic - vascular surgery following - [...] bedside Paris Mohr MD Neurology Resident. PGY-3 [facility]. Associated attestation - Shahbaz Bowen MD - [...] 10/25: Incidentally clot found in the R CHILDRENS CLUB ATTENDANT, non-occlusive, with good pulses peripherally. 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 Recent Labs Component Name 10/29/22 0010 10/28/2212410/27/22 0054 NA 138 138 138 CL 106 106 107 CO2 24 26 24 BUN 9 9 11 CREATININE 0.54* 0.54* 0.53* CALCIUM 8.8 8.6 8.4 No results for input(s): MG in the last 41665 hours. Recent Labs Component Name 10/29/22 0010 [...] results for input(s): A1C in the last 70402 hours. Recent Labs Component Name 10/20/22 0302 06/15/22 0757 CHOL 173 204* HDL 42 37* LDLCALC 91 117* TRIG 201* 251* Recent Labs Component Name 06/15/22 0757 TSH 1.873 No results for input(s): CKMB, CKTOTAL, CKMB, TROPONINI, BNP in the last [address] ANGIO BRAIN NECK STROKE Result Date: 10/19/2022 PROCEDURE: CT ANGIO BRAIN NECK STROKE, DATE/TIME OF EXAM: 10/19/2022 8:16 AM, LOCATION [facility] INDICATION: Code Stroke ADDITIONAL CLINICAL INFORMATION: Ordering [...] DATE/TIME OF EXAM: 10/19/2022 8:04 AM, LOCATION [facility] INDICATION: Code Stroke ADDITIONAL CLINICAL INFORMATION: Ordering [...] swallow. TF - Consider PEG tube - COMPENSATION ANALYST swallow evaluation Renal/Electrolytes ? No acute issues [...] Hamm COTA - 10/29/2022 1:02 PM CDT [facility] Occupational Therapy Splint [...] LABS: Recent Labs Component Name 10/29/22 0010 10/27/22202810/27/225310/23/2212810/22/22 0153 WBC 21.3* 21.1* 19.5* - - [...] report is dictated by Miranda Bowen MD (president mortgage company) I, Oriana Suarez MD have personally reviewed [...] verification. > Dictated by Clarisa Cantrell MD (president mortgage company). I, Alexx Lopez have personally reviewed and [...] report is dictated by Miranda Bowen MD (president mortgage company) Joni Ornelas MD have personally reviewed and [...] right lateral ventricle, and approximately 3-4 mm btrqn-fz-chqs midline shift, grossly similar to the prior. [...] verification. Report dictated by Tim Major MD (president mortgage company). I, Jasper Sifuentes MD have personally reviewed [...] occlusion of the R EIA + proximal CHILDRENS CLUB ATTENDANT extending into the profunda with reconstitution identified [...] Patient will be staffed with attending, Dr. oJse. Note to be updated with any changes. [...] Hamm COTA - 10/28/2022 3:25 PM CDT [facility] Rehabilitation Occupational Therapy Splint [...] ASSESSMENT/PLAN Indication: endocarditis c/b septic emboli to 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 Goal trough: 15-20 mcg/mL Assessment: ?? Day [...] TBD Lucretia Barrett PharmD 10/28/2022 3:16 PM [facility] Vancomycin Guideline * Valdez Oshea RN - [...] results for input(s): MG in the last 97114 hours. Recent Labs Component Name 10/28/22 0125 [...] results for input(s): A1C in the last 85053 hours. Recent Labs Component Name 10/20/22 0302 06/15/22 0757 CHOL 173 204* HDL 42 37* LDLCALC 91 117* TRIG 201* 251* Recent Labs Component Name 06/15/22 0757 TSH 1.873 No results for input(s): CKMB, CKTOTAL, CKMB, TROPONINI, BNP in the last [address] ANGIO BRAIN NECK STROKE Result Date: 10/19/2022 PROCEDURE: CT ANGIO BRAIN NECK STROKE, DATE/TIME OF EXAM: 10/19/2022 8:16 AM, LOCATION [facility] INDICATION: Code Stroke ADDITIONAL CLINICAL INFORMATION: Ordering [...] DATE/TIME OF EXAM: 10/19/2022 8:04 AM, LOCATION [facility] INDICATION: Code Stroke ADDITIONAL CLINICAL INFORMATION: Ordering [...] swallow. TF - Consider PEG tube - COMPENSATION ANALYST swallow evaluation Renal/Electrolytes ? No acute issues [...] were not included. Neurocritical Care Progress Note oCnsuelo Darby Age: [age] year old Date of [...] occlusion of the R EIA + proximal CHILDRENS CLUB ATTENDANT 10/26: reached goal aptt overnight. Neuro exam [...] occlusion of the R EIA + proximal CHILDRENS CLUB ATTENDANT likely iatrogenic Plan Neurological R MCA M1 occlusion s/p MT with TICI 2B recanalization S/P TNK administration. S/P [facility] Malignant MCA syndrome - S/P hemicrani on [...] after hemicrani on 10/20. Extubated 10/24, to [place] - Bronchial hygiene q4h, vest and if [...] - Diet: Goal TF Vital 55cc/hr, FWF 308abb2z - GI ppx: Lansoprozole - Last BM: 10/22 - BM regimen: senna and miralax Endocrine Patient was taking oral contraceptive home medication. - A1c 6.0 - Accuchecks Hematology Recent Labs Component Name 10/27/22202810/27/22 0054 WBC 21.1* 19.5* HGB 7.6* 8.0* HCT 24.2* 24.6* PLTCOUNT 486* 519* PLATELET - Occasional* #Occlusion of the R EIA + proximal CHILDRENS CLUB ATTENDANT likely iatrogenic - vascular surgery following - [...] bedside Tim Marinelli MD Neurology Resident. PGY-4 [facility]. Associated attestation - Shahbaz Bowen MD - [...] 10/25: Incidentally clot found in the R CHILDRENS CLUB ATTENDANT, non-occlusive, with good pulses peripherally. 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 Neuro exam [...] occlusion of the R EIA + proximal CHILDRENS CLUB ATTENDANT likely iatrogenic Plan Neurological ICP 12-21 LEONCIO [...] after hemicrani on 10/20. Extubated 10/24, to [place] - Bronchial hygiene q4h, vest and if [...] - Diet: Goal TF Vital 55cc/hr, FWF 070xex7b - GI ppx: Lansoprozole - Last BM: 10/22 - BM regimen: senna and miralax Endocrine Patient was taking oral contraceptive home medication. - A1c 6.0 - Accuchecks Hematology Recent Labs Component Name 10/27/22 0054 WBC 19.5* HGB 8.0* HCT 24.6* PLTCOUNT 519* PLATELET Occasional* #Occlusion of the R EIA + proximal CHILDRENS CLUB ATTENDANT likely iatrogenic - vascular surgery following - [...] bedside Paris Mohr MD Neurology Resident. PGY-3 [facility]. Associated attestation - Shahbaz Bowen MD - [...] 10/25: Incidentally clot found in the R CHILDRENS CLUB ATTENDANT, non-occlusive, with good pulses peripherally. 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 Continuing with ceftriaxone and vanc. Critical Care 30-74 minutes: 40 mins (Time involved in the performance of separately billable procedures, teaching, or reviewing educational material was not counted towards critical care time.) * Sima Gardner, JOSETTE - 10/27/2022 3:56 PM CDT [facility] Physical Medicine and Rehabilitation Swallow Treatment Patient: Consuelo Darby Med Record Number: [id number] Date of : 1980 Age: [age] year [...] Pharyngeal: (P) Moderate;Severe (Suspected) Treatment/Education/Interventions: While performing COMPENSATION ANALYST, Patient and spouse was instructed in: results of swallow evaluation and recommendations for NPO status given patient's elevated aspiration risk. Patient demonstrated Questionable understanding of instructions given. Nurse contacted regarding results of treatment session. INFORMED CONSENT TO TREATMENT: Plan of care is discussed but patient with questionable understanding. Short Term Goals Patient will participate in an instrumental swallow assessment as appropriate. Retirement Goal (s): Patient to discharge to appropriate [...] in LUE and LLE Sensory Light Touch RENYOLD Noxious Stimuli Symmetric and intact bilaterally Labs: [...] results for input(s): MG in the last 03465 hours. Recent Labs Component Name 10/27/22 0054 [...] results for input(s): A1C in the last 61982 hours. Recent Labs Component Name 10/20/22 0302 06/15/22 0757 CHOL 173 204* HDL 42 37* LDLCALC 91 117* TRIG 201* 251* Recent Labs Component Name 06/15/22 0757 TSH 1.873 No results for input(s): CKMB, CKTOTAL, CKMB, TROPONINI, BNP in the last [address] ANGIO BRAIN NECK STROKE Result Date: 10/19/2022 PROCEDURE: CT ANGIO BRAIN NECK STROKE, DATE/TIME OF EXAM: 10/19/2022 8:16 AM, LOCATION [facility] INDICATION: Code Stroke ADDITIONAL CLINICAL INFORMATION: Ordering [...] DATE/TIME OF EXAM: 10/19/2022 8:04 AM, LOCATION [facility] INDICATION: Code Stroke ADDITIONAL CLINICAL INFORMATION: Ordering [...] - NPO until passes swallow. TF - COMPENSATION ANALYST swallow evaluation Renal/Electrolytes ? No acute issues [...] Diabetes: no Atrial Fibrillation: no Tobacco: no Vicike Muller PGY-2 Neurology resident * Bulmaro Ochoa [...] Information Primary Emergency Contact: Hi Darby Address: [address] [place] [id number] [facility] Relation: Spouse Secondary Emergency Contact: Sandra Disla [facility] Mobile Relation: Mother Transportation at Discharge: Ambulance: READMISSION RISK SCORE is 15 at 2:22 PM 10/27/2022.: Name: Bulmaro Ochoa RN BSN credit manager [phone] * Agnes Erazo, PT - 10/27/2022 11:46 AM CDT [facility] Physical Medicine and Rehabilitation Physical Therapy Re-evaluation Note Patient: Consuelo Darby Med Record Number: [id number] Date of : 1980 Age: [age] year [...] bed mobility training and balance activities Modified Gove: Current Modified Maryann Score: 5 AM-PAC 6 [...] sit EOB x10 minutes with minimal assist Slat Basket Maker Helper Machine Goal(s): Patient to discharge to appropriate next [...] Crawley, OT - 10/27/2022 8:57 AM CDT [facility] Physical Medicine and Rehabilitation Occupational Therapy Re-Evaluation Note Patient: Consuelo Darby Med Record Number: [id number] Date of : 1980 Age: [age] year [...] Additional Information (OT): 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 Modified Maryann: Current Modified Maryann Score: 5 [...] with good endurance and with minimal pain Retirement Goal(s): Patient to discharge to appropriate next [...] Parks MD - 10/27/2022 8:46 AM CDT [facility] Infectious Diseases Progress Note Date of Admission: [...] will need to follow up in the [facility] ID clinic; we will schedule appointment While on outpatient IV antibiotics, they will need weekly CBC with diff, CMP to monitor for adverseevents These labs will need to be faxed to [phone] (attention: Liam Parks MD) Infectious Disease will [...] Parks MD (PGY-5) Infectious Diseases Fellow [facility] [employer] Pager: [phone] ID Clinic Associated attestation - Arturo Delacruz [...] of care. . Arturo Delacruz MD PhD Analytical Strategist [facility] Infectious Disease * Consuelo Prado [...] Value Units Date/Time BARTONELLA HENSELAE ANTIBODY IGM [[id number]] Order Status: Sent Specimen: Blood BARTONELLA HENSELAE ANTIBODY IGG [[id number]] Order Status: Sent Specimen: Blood Q FEVER IGG/IGM AB PANEL RFLX TITER [[id number]] Order Status: Sent Specimen: Blood CHLAMYDIA ANTIBODY IGG/IGM PANEL [[id number]] Order Status: Sent Specimen: Blood MYCOPLASMA PNEUMONIAE AB IGG [[id number]] Order Status: Sent Specimen: Blood MYCOPLASMA PNEUMONIAE AB IGM [[id number]] Order Status: Sent Specimen: Blood PTT [facility] [[id number]] Order Status: Sent Specimen: Blood GLUCOSE - POINT OF CARE [[id number]] (Abnormal) Collected: 10/27/22632 Order Status: Completed Specimen: Blood Updated: 10/27/22638 Glucose WB/POC 128 mg/dL Specimen Type Cap Fingerstick PTT [facility] [[id number]] (Abnormal) Collected: 10/27/22607 Order Status: Completed Specimen: Blood Updated: 10/27/22636 APTT 58.6 Seconds Comment: Suggested therapeutic range for full dose I.V. unfractionated heparin therapy for venous thromboembolism is 71 to 109 seconds. PT-INR SL [[id number]] (Normal) Collected: 10/27/22607 Order Status: Completed Specimen: Blood Updated: 08/18/23 0636 PT 13.7 Seconds INR 1.1 Comment: The suggested therapeutic range for standard coumadin (warfarin) therapy is an INR of 2.0-3.0. For high-risk patients (Mechanical Mitral Valve Prosthesis, etc.), the suggested prophylactic therapeutic range is an INR of 2.5-3.5. DIFFERENTIAL MANUAL [[id number]] (Abnormal) Collected: 10/27/2253 Order Status: Completed Specimen: [...] Platelet Estimate Increased Polychromasia Occasional Ovalocytes Occasional [place] Cells Occasional Tear Drop Cells Occasional Smudge Cells Rare Large Platelet Count Occasional PHOSPHORUS BLOOD [[id number]] (Normal) Collected: 10/27/2253 Order Status: Completed Specimen: Blood Updated: 10/27/22127 Phosphorus 3.5 mg/dL MAGNESIUM BLOOD [[id number]] (Normal) Collected: 10/27/2253 Order Status: Completed Specimen: Blood Updated: 10/27/22127 Magnesium 2.0 mg/dL BASIC METABOLIC PANEL (CALCIUM TOTAL) [[id number]] (Abnormal) Collected: 10/27/2253 Order Status: Completed Specimen: Blood Updated: 10/27/22127 BUN 11 mg/dL Creatinine 0.53 mg/dL Sodium 138 mmol/L Potassium 3.5 mmol/L Chloride 107 mmol/L CO2 24 mmol/L Glucose 137 mg/dL Calcium 8.4 mg/dL Anion Gap 11 BUN/Creatinine Ratio 21 Osmolality Calculated 288 mOsm/kg eGFR by CKD-EPI >90 mL/min/1.73 m2 PTT [facility] [[id number]] (Abnormal) Collected: 10/27/2253 Order Status: Completed Specimen: Blood Updated: 10/27/22124 APTT 59.5 Seconds Comment: Suggested therapeutic range for full dose I.V. unfractionated heparin therapy for venous thromboembolism is 71 to 109 seconds. CBC W AUTO DIFFERENTIAL [[id number]] (Abnormal) Collected: 10/27/22 0054 Order Status: Completed Specimen: Blood Updated: 10/27/22 0123 WBC 19.5 10??3/uL RBC 2.60 10??6/uL Hemoglobin 8.0 g/dL Hematocrit 24.6 % MCV 94.6 fL MCH 30.8 pg MCHC 32.5 g/dL RDW-SD 45.8 fL RDW-CV 13.5 % Platelet Count 519 10??3/uL MPV 10.1 fL nRBC Absolute 0.08 10??3/uL nRBC Auto 0.4 /100 WBC PTT [facility] [[id number]] (Abnormal) Collected: 10/26/222 Order Status: Completed Specimen: Blood Updated: 10/26/22 2146 APTT 65.0 Seconds Comment: Suggested therapeutic range for full dose I.V. unfractionated heparin therapy for venous thromboembolism is 71 to 109 seconds. GLUCOSE - POINT OF CARE [[id number]] (Abnormal) Collected: 10/26/22 1833 Order Status: Completed Specimen: Blood Updated: 10/26/22 1834 Glucose WB/POC 122 mg/dL Specimen Type Cap Fingerstick FACTOR V LEIDEN MUTATION PANEL [[id number]] Collected: 10/21/22 0459 Order Status: Completed Specimen: Blood Updated: 10/26/22 1746 Factor V Leiden Source Whole Blood Factor V Leiden PCR/FRET Negative Comment: Indication for testing: Assess genetic risk for thrombosis. NEGATIVE: The factor V Leiden variant, c.1601G>A; p.Wms364Qee, was not detected. This does not exclude [...] function in the F5 gene variant c.1601G>A (p.Hml283Tls). Legacy nomenclature: [id number] (1691G>A) CLINICAL SENSITIVITY: 20-50 percent of individuals with an isolated VTE have the FVL variant. METHODOLOGY: Polymerase chain reaction and fluorescence monitoring. ANALYTICAL SENSITIVITY AND SPECIFICITY: 99 percent. LIMITATIONS: Diagnostic errors can occur due to rare sequence variations. F5 gene mutations, other than p.Laz262Dzd, will not be detected. This test was developed and its performance characteristics determined by [facility]. It has not been cleared or approved by the [place] Food and Drug Administration. This test was performed in a CLIA certified laboratory and is intended for clinical purposes. Counseling and informed consent are recommended for genetic testing. Consent forms are available online. Performed By: [facility] [address] [place] [id number] Transportation Security Screener: Boo Bond MD, PhD CLIA Number: [id number] PTT [facility] [[id number]] (Abnormal) Collected: 10/26/22 1559 Order Status: Completed Specimen: Blood Updated: 10/26/22 1635 APTT 52.9 Seconds Comment: Suggested therapeutic range for full dose I.V. unfractionated heparin therapy for venous thromboembolism is 71 to 109 seconds. GLUCOSE - POINT OF CARE [[id number]] (Abnormal) Collected: 10/26/22 1215 Order Status: Completed Specimen: Blood Updated: 10/26/22 1216 Glucose WB/POC 122 mg/dL Specimen Type Cap Fingerstick PTT [facility] [[id number]] Order Status: Canceled Specimen: Blood PTT [facility] [[id number]] (Abnormal) Collected: 10/26/22 1124 Order Status: Completed Specimen: Blood Updated: 10/26/22 1155 APTT 51.1 Seconds Comment: Suggested therapeutic range for full dose I.V. unfractionated heparin therapy for venous thromboembolism is 71 to 109 seconds. CARDIOLIPIN ANTIBODY IGA [[id number]] Collected: 10/23/222028 Order Status: Completed Specimen: Blood Updated: 10/26/22 1011 Cardiolipin Antibody IgA <10 APL Comment: INTERPRETIVE INFORMATION: Cardiolipin Antibodies, IgA <=11 APL: Negative 12-19 APL: Indeterminate 20-80 APL: Low to Moderately Positive 81 APL or above: High Positive Performed By: [facility] [address] [place] [id number] Transportation Security Screener: Boo Bond MD, PhD CLIA Number: [id number] VANCOMYCIN LEVEL TROUGH [[id number]] (Normal) Collected: 10/26/22 0838 Order Status: Completed [...] report is dictated by Miranda Bowen MD (president mortgage company) I, Oriana Suarez MD have personally reviewed [...] verification. > Dictated by Clarisa Cantrell MD (president mortgage company). [employer] have personally reviewed and interpreted this [...] report is dictated by Miranda Bowen MD (president mortgage company) Joni Ornelas MD have personally reviewed and [...] right lateral ventricle, and approximately 3-4 mm kquzi-gf-ryuy midline shift, grossly similar to the prior. [...] verification. Report dictated by Tim Major MD (president mortgage company). Jasper Ornelas MD have personally reviewed and [...] The report is dictated by Miranda Bowen MD(president mortgage company) Jasper Ornelas MD have personally reviewed and [...] dictated by Lorenzo Horta MD (vice president regulatory). Lonnie Ornelas MD have personally reviewed and [...] Dictated by Bassam Jovel M.D. (vice president regulatory) Gonzalez Ornelas MD have personally reviewed and [...] febrile Gastrointestinal # Hx of GERD? - COMPENSATION ANALYST swallow evaluation:??when stable - Diet:??NG tube - [...] bedside? Consuelo Kyle Prado Medical Student, MS3 [facility]. * Emir Vail MD - 10/27/2022 7:54 [...] report is dictated by Miranda Bowen MD (president mortgage company) Oriana Ornelas MD have personally reviewed and [...] verification. > Dictated by Clarisa Cantrell MD (president mortgage company). Alexx Ornelas have personally reviewed and interpreted [...] report is dictated by Miranda Bowen MD (president mortgage company) Joni Ornelas MD have personally reviewed and [...] right lateral ventricle, and approximately 3-4 mm pzbyf-to-bdbb midline shift, grossly similar to the prior. [...] verification. Report dictated by Tim Major MD (president mortgage company). I, Jasper Sifuentes MD have personally reviewed [...] occlusion of the R EIA + proximal CHILDRENS CLUB ATTENDANT extending into the profunda with reconstitution identified [...] History ??? 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 Smoking status: [...] appropriately interactive. NEURO: Following commands. Good hand supervisor mending bilaterally. MSK: No synovitis, dactylitis, or enthesitis. [...] Range INR 0.9 0.9 - 1.2 Device [id number] Satellite Installation Technician ID [id number] EKG 12-LEAD Result Value Ref Range Ventricular Rate 129 BPM Atrial Rate 129 BPM P-R Interval 134 ms QRS Duration ms 90 ms Q-T Interval ms 318 ms QTC Calculation (Bezet) 465 ms Calculated P [place] 55 degrees Calculated R [place] 13 degrees Calculated T [place] 5 degrees Interpretation EKG SINUS TACHYCARDIA OTHERWISE NORMAL ECG NO PREVIOUS ECGS AVAILABLE Confirmed by FLORA OTT MD ([id number]) on 10/19/2022 5:38:23 PM CBC W AUTO [...] by CKD-EPI >90 >=90 mL/min/1.73 m2 PT-INR [facility] Result Value Ref Range PT 12.3 12.1 [...] BUBBLE STUDY Result Value Ref Range BSA 2.8358957 m2 LV biplane EF 64 54 - [...] Age Predicted HR 181 Target HR 154 [id number] 6.054 cm [id number] 5.318 cm LEFT VENTRICLE STROKE VOLUME BIPLANE [...] right lateral ventricle, and approximately 3-4 mm ircdt-my-tnhs midline shift, grossly similar to the prior. [...] Jasso. ?? Josue Castellanos MD Rheumatology Fellow [facility] Associated attestation - Gonzalez Jasso MD [...] Rheumatology Fellowship Program Department of Internal Medicine [facility] * Liv Lugo MD - 10/26/2022 [...] Erazo, PT - 10/26/2022 1:15 PM CDT [facility] Department of Physical Medicine & Rehabilitation Progress Note Patient: Consuelo Darby Med Record Number: [id number] Date of : 1980 Age: [age] year old 10/26/22 1300 Missed Visit Missed Visit Other (Comment) (awaiting helmet) * Yoon Cuadra, PharmD - 10/26/2022 12:54 PM CDT Vancomycin Per Pharmacy - Follow-Up Note Subjective Consuelo Darby is a 41 year old female receiving vancomycin dosed per pharmacy. 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 Goal trough 15-20 mcg/mL. Objective Day of [...] monitor patient's renal function. Please contact the [facility] pharmacy department ([id number]) with any questions. Yoon Cuadra PharmD 10/26/2022 12:47 PM Resources: Vancomycin Protocol * Jerry Leigh SLP - 10/26/2022 11:55 AM CDT [facility] Physical Medicine and Rehabilitation Bedside Swallow Assessment Patient: Consuelo Darby Med Record Number: [id number] Date of : 1980 Age: [age] year [...] Impression - Pharyngeal: Moderate Education/Interventions: While performing COMPENSATION ANALYST, Patient and spouse was instructed in: goals [...] precautions., Patient will follow recommended swallowing strategies. Slat Basket Maker Helper Machine Goal (s): Patient to be independent/baseline with functional mobility and self care and be able to safely discharge to prior level of care. Jerry Valle M.A., [facility]-COMPENSATION ANALYST Speech Language Pathologist [phone] * Pardeep Parks [...] Crawley OT - 10/26/2022 11:34 AM CDT [facility] Department of Physical Medicine & Rehabilitation Progress Note Patient: Consuelo Darby Med Record Number: [id number] Date of : 1980 Age: [age] year [...] Primary Emergency Contact: Hi Darby Address: [address] [address] [place] [address] [facility] Relation: Spouse Secondary Emergency Contact: Sandra Disla [facility] Mobile Relation: Mother Transportation at Discharge: Ambulance: READMISSION RISK SCORE is 14 at 9:22 AM 10/26/2022.: Name: Bulmaro Ochoa RN BSN credit manager [phone] * Vickie Muller MD - 10/26/2022 9:18 [...] results for input(s): MG in the last 11744 hours. Recent Labs Component Name 10/26/22 0002 10/25/22 0007 10/23/222028 PHOS 3.5 3.7 3.1 Recent Labs Component Name 10/26/22 0647 10/26/22 0426 10/26/22 0155 10/25/22 2102 10/25/22 1641 10/23/222028 PT - 13.6 - - 13.4 13.4 INR - 1.0 - - 1.0 1.0 PTT 44.3* - 20.5* 33.3 24.8 21.4* No results for input(s): A1C in the last 83709 hours. Recent Labs Component Name 10/20/22 0302 06/15/22 0757 CHOL 173 204* HDL 42 37* LDLCALC 91 117* TRIG 201* 251* Recent Labs Component Name 06/15/22 0757 TSH 1.873 No results for input(s): CKMB, CKTOTAL, CKMB, TROPONINI, BNP in the last [address] ANGIO BRAIN NECK STROKE Result Date: 10/19/2022 PROCEDURE: CT ANGIO BRAIN NECK STROKE, DATE/TIME OF EXAM: 10/19/2022 8:16 AM, LOCATION [facility] INDICATION: Code Stroke ADDITIONAL CLINICAL INFORMATION: Ordering [...] DATE/TIME OF EXAM: 10/19/2022 8:04 AM, LOCATION [facility] INDICATION: Code Stroke ADDITIONAL CLINICAL INFORMATION: Ordering [...] issues ??-NPO until passes swallow. TF - COMPENSATION ANALYST swallow evaluation Renal/Electrolytes ? No acute issues [...] Other (Comment) (has not been assessed by COMPENSATION ANALYST) Pain affectingintake: No Estimated Needs: KCAL: [id number] (25-30kcal/kg of IBW) Protein (g): 66-77 (1.2-1.4gm/kg [...] Delacruz MD - 10/26/2022 8:16 AM CDT [facility] Infectious Diseases Progress Note Date of Admission: 10/19/2022 7:53 AM Length of Stay: Day 7 Room: 309/01 Attending: Emir Vail MD Subjective No acute events overnight. Afebrile. Pt cannot verbalize but makes thumbs up sign. Antimicrobial History Current Antibiotics Vancomycin 10/25 - present Ceftriaxone 10/25 - present ?? Prior Antibiotics At [facility] Cefazolin 10/20 Vancomycin 10/20 Inpatient [...] 108* 107 CO2 24 25 23 - 21* 23 BUN 13 16 14 - 13 [...] 0426 10/26/22 0155 10/25/22 2102 10/25/22 1641 10/23/22 2029 PT - 13.6 - - 13.4 13.4 [...] fever serology -Chlamydia serologies, IgG and IgM, [facility]#[id number] -Mycoplasma serologies, IgG and IgM, [facility]#[id number] Follow blood cultures Follow rheumatologic and hypercoagulable work up Check CBC with auto diff and CMP weekly while on IV antibiotics Thank you for allowing us to participate in the care of this patient. We will continue to follow and monitor with you closely. Arturo Delacruz MD PhD Analytical Strategist [facility] Infectious Disease Pager: [phone] 40 minutes spent in the care of [...] following - maintain normothermic and euglycemic - PT/OT/COMPENSATION ANALYST when stable - outpt follow-up for 3mm [...] Component Value Units Date/Time CARDIOLIPIN ANTIBODY IGA [[id number]] Collected: 10/23/222028 Order Status: Completed Specimen: Blood Updated: 10/26/22 1011 Cardiolipin Antibody IgA <10 APL Comment: INTERPRETIVE INFORMATION: Cardiolipin Antibodies, IgA <=11 APL: Negative 12-19 APL: Indeterminate 20-80 APL: Low to Moderately Positive 81 APL or above: High Positive Performed By: [facility] [address] [place] [address] Transportation Security Screener: Boo Bodn MD, PhD CLIA Number: [id number] VANCOMYCIN LEVEL TROUGH [[id number]] (Normal) Collected: 10/26/22837 Order Status: Completed Specimen: Blood Updated: 10/26/2259 Vancomycin Trough 14.0 ug/mL Narrative: See institution protocol. LAB MISC TEST [[id number]] Collected: 10/26/22736 Order Status: Sent Specimen: Blood Updated: 10/26/2239 PTT [facility] [[id number]] Order Status: Sent Specimen: Blood PTT [facility] [[id number]] (Abnormal) Collected: 10/26/2247 Order Status: Completed Specimen: Blood Updated: 10/26/22716 APTT 44.3 Seconds Comment: Suggested therapeutic range for full dose I.V. unfractionated heparin therapy for venous thromboembolism is 71 to 109 seconds. GLUCOSE - POINT OF CARE [[id number]] (Abnormal) Collected: 10/26/22711 Order Status: Completed Specimen: Blood Updated: 10/26/22712 Glucose WB/POC 144 mg/dL Specimen Type Cap Fingerstick LAB MISC TEST [[id number]] Order Status: Canceled Specimen: Blood PT-INR [facility] [[id number]] (Normal) Collected: 10/26/226 Order Status: Completed Specimen: Blood Updated: 10/26/22458 PT 13.6 Seconds INR 1.0 Comment: The suggested therapeutic range for standard coumadin (warfarin) therapy is an INR of 2.0-3.0. For high-risk patients (Mechanical Mitral Valve Prosthesis, etc.), the suggested prophylactic therapeutic range is an INR of 2.5-3.5. BETA-2 GLYCOPROTEIN 1 ANTIBODY IGA [[id number]] Collected: 10/23/222028 Order Status: Completed Specimen: Blood Updated: 10/26/22 0243 Beta-2 Glycoprotein Antibody IgA <10 TRUDI Comment: Performed By: [facility] [address] [place] [address] Transportation Security Screener: Boo Bond MD, PhD CLIA Number: [id number] BETA-2 GLYCOPROTEIN 1 ANTIBODY IGG/IGM PANEL [[id number]] Collected: 10/23/222028 Order Status: Completed Specimen: Blood Updated: 10/26/22 024 Beta-2 Glycoprotein Antibody IgG <10 SGU Beta-2 Glycoprotein Antibody IgM <10 SMU Comment: INTERPRETIVE INFORMATION: B2Otwbksktmrfe I, IgG and IgM Antibody The persistent [...] other criteria phospholipid antibody tests. Performed By: [facility] [address] [place] [address] Transportation Security Screener: Boo Bond MD, PhD CLIA Number: [id number] CARDIOLIPIN ANTIBODY IGM [[id number]] Collected: 10/23/222028 Order Status: Completed Specimen: Blood [...] other criteria phospholipid antibody tests. Performed By: [facility] [address] [place] [address] Transportation Security Screener: Boo Bond MD, PhD CLIA Number: [id number] CARDIOLIPIN ANTIBODY IGG [[id number]] Collected: 10/23/222028 Order Status: Completed Specimen: Blood [...] other criteria phospholipid antibody tests. Performed By: [facility] [address] [place] [address] Transportation Security Screener: Boo Bond MD, PhD CLIA Number: [id number] PTT [facility] [[id number]] (Abnormal) Collected: 10/26/22154 Order Status: Completed Specimen: Blood Updated: 10/26/22225 APTT 20.5 Seconds Comment: Suggested therapeutic range for full dose I.V. unfractionated heparin therapy for venous thromboembolism is 71 to 109 seconds. PHOSPHORUS BLOOD [[id number]] (Normal) Collected: 10/26/221 Order Status: Completed Specimen: Blood Updated: 10/26/2229 Phosphorus 3.5 mg/dL MAGNESIUM BLOOD [[id number]] (Normal) Collected: 10/26/221 Order Status: Completed Specimen: Blood Updated: 10/26/2229 Magnesium 1.9 mg/dL BASIC METABOLIC PANEL (CALCIUM TOTAL) [[id number]] (Abnormal) Collected: 10/26/221 Order Status: Completed Specimen: Blood Updated: 10/26/2229 BUN 13 mg/dL Creatinine 0.54 mg/dL Sodium 139 mmol/L Potassium 3.3 mmol/L Chloride 105 mmol/L CO2 24 mmol/L Glucose 113 mg/dL Calcium 8.4 mg/dL Anion Gap 13 BUN/Creatinine Ratio 24 Osmolality Calculated 289 mOsm/kg eGFR by CKD-EPI >90 mL/min/1.73 m2 CBC W AUTO DIFFERENTIAL [[id number]] (Abnormal) Collected: 10/26/221 Order Status: Completed Specimen: Blood Updated: 10/26/2211 WBC 16.1 10??3/uL RBC 2.64 10??6/uL Hemoglobin [...] Absolute 0.30 GLUCOSE - POINT OF CARE [[id number]] Collected: 10/25/224 Order Status: Completed Specimen: Blood Updated: 10/25/222314 Glucose WB/POC 114 mg/dL Specimen Type Cap Fingerstick PTT [facility] [[id number]] Order Status: Canceled Specimen: Blood PTT [facility] [[id number]] (Normal) Collected: 10/25/222101 Order Status: Completed Specimen: Blood Updated: 10/25/222131 APTT 33.3 Seconds Comment: Suggested therapeutic range for full dose I.V. unfractionated heparin therapy for venous thromboembolism is 71 to 109 seconds. GLUCOSE - POINT OF CARE [[id number]] (Abnormal) Collected: 10/25/221853 Order Status: Completed Specimen: Blood Updated: 10/25/221855 Glucose WB/POC 122 mg/dL Specimen Type Cap Fingerstick PT-INR [facility] [[id number]] (Normal) Collected: 10/25/221640 Order Status: Completed Specimen: Blood Updated: 10/25/221718 PT 13.4 Seconds INR 1.0 Comment: The suggested therapeutic range for standard coumadin (warfarin) therapy is an INR of 2.0-3.0. For high-risk patients (Mechanical Mitral Valve Prosthesis, etc.), the suggested prophylactic therapeutic range is an INR of 2.5-3.5. PTT [facility] [[id number]] (Normal) Collected: 10/25/221640 Order Status: Completed Specimen: [...] verification. > Dictated by Clarisa Cantrell MD (president mortgage company). [employer] have personally reviewed and interpreted this [...] report is dictated by Miranda Bowen MD (president mortgage company) Joni Ornelas MD have personally reviewed and [...] right lateral ventricle, and approximately 3-4 mm ojgae-yl-gzor midline shift, grossly similar to the prior. [...] verification. Report dictated by Tim Major MD (president mortgage company). Jasper Ornelas MD have personally reviewed and [...] The report is dictated by Miranda Bowen MD(president mortgage company) Jasper Ornelas MD have personally reviewed and [...] dictated by Lorenzo Horta MD (vice president regulatory). Lonnie Ornelas MD have personally reviewed and [...] Dictated by Bassam Jovel M.D. (vice president regulatory) I, Gonzalez Velasco MD have personally reviewed [...] febrile Gastrointestinal # Hx of GERD? - COMPENSATION ANALYST swallow evaluation:??when stable - Diet:??NG tube - [...] bedside Cordero Kyle Prado Medical Student, MS3 [facility]. * Paris Mohr MD - 10/26/2022 6:55 [...] TICI 2B recanalization S/P TNK administration. S/P [facility] Malignant MCA syndrome - S/P hemicrani on [...] after hemicrani on 10/20. Extubated 10/24, to [place] - Bronchial hygiene q4h, vest and if [...] - Diet: Goal TF Vital 55cc/hr, FWF [id number] - GI ppx: Lansoprozole - Last BM: [...] bedside Paris Mohr MD Neurology Resident. PGY-3 [facility]. Associated attestation - Shahbaz Bowen MD - [...] 10/25: Incidentally clot found in the R [employer], non-occulsive, with good pulses peripherally. 10/26: no [...] Primary Emergency Contact: Hi Darby Address: [address] [address] [place] [address] [facility] Relation: Spouse Secondary Emergency Contact: Sandra Disla [facility] Mobile Relation: Mother Transportation at Discharge: Ambulance: READMISSION RISK SCORE is 15 at 6:02 PM 10/25/2022.: Name: Bulmaro Ochoa RN BSN credit manager [phone] * Barbara Arteaga - 10/25/2022 12:38 PM CDT Division Engineer offered support to Salo at bedside and asked him and Consuelo, who was awake, aboutreceiving the sacrament of the sick from a compliance coordinator. Salo said yes and Consuelo seemed to give assent as well. Division Engineer asked if she would like prayer and Consuelo gave a thumbs up; psychological anthropologist provided prayer in thanksgiving that she's extubated and giving thumbs up. Consuelo put her arm around Salo who w as leaning over her; psychological anthropologist affirmed the couple's obvious love for each other. requestedSOS from our compliance coordinator. chaplain Cici Ascom [phone] call center manager [phone] * Paris Mohr MD - 10/25/2022 [...] after hemicrani on 10/20. Extubated 10/24, to [place] - Bronchial hygiene q4h, vest and if [...] - Diet: Goal TF Vital 55cc/hr, FWF [id number] - GI ppx: Lansoprozole - Last BM: [...] bedside Paris Mohr MD Neurology Resident. PGY-3 [facility]. Associated attestation - Shahbaz Bowen MD - [...] 10/25: Incidentally clot found in the R [employer], non-occulsive, with good pulses peripherally. RENAL/ Urinary [...] Rose OT - 10/25/2022 9:50 AM CDT [facility] Department of Physical Medicine & Rehabilitation Progress Note Patient: Consuelo Darby Med Record Number: [id number] Date of : 1980 Age: [age] year old 10/25/22 0949 Missed Visit Missed Visit MD Cancel Per multidisciplinary rounds with primary team, cx therapy this date. Team also notified on rounds of need for helmet prior to initiating out of bed mobility. OT will continue to follow. * Iva Wilde, PT - 10/25/2022 9:30 AM CDT [facility] Department of Physical Medicine & Rehabilitation Patient: Consuelo Darby Med Record Number: [id number] Date of : 1980 Age: [age] year old 10/25/22 0930 Missed Visit Missed Visit MD Cancel- Cancel for the day per stroke rounds * Liam Parks MD - 10/25/2022 8:00 AM CDT [facility] Infectious Diseases Progress Note Date of Admission: 10/19/2022 7:53 AM Length of Stay: Day 6 Room: 309/ Attending: Emir Vail MD Subjective Since last [...] 10/25 - present ?? Prior Antibiotics At [facility] Cefazolin 10/20 Vancomycin 10/20 Inpatient [...] Lab Review CBC: Recent Labs Component Name 08/610/23/22202810/23/2212810/22/22 0153 WBC 16.6* 17.4* 16.7* - RBC 2.65* 2.58* 2.52* - HGB 8.2* 8.0* 7.8* - HCT 25.1* 24.4* 23.8* - MCV 94.7 94.6 94.4 - PLT - - - 199 BMP: Recent Labs Component Name 10/25/22610/23/22202810/23/2212810/20/2230110/19/2282306/15/22756 NA 140 140 140 - 139 138 CL 106 110* 108* - 108* 107 CO2 - BUN 16 14 - 12 CREATININE 0.48* 0.56 0.51* - 0.84 0.74 ALB - - - - 3.5 3.6 PROT - - - - 7.7 7.5 - = values in this interval not displayed. estimated creatinine clearance is 176.1 mL/min (A) (by C-G formula based on SCr of 0.48 mg/dL (L)). LFTs: Recent Labs Component Name 10/19/2282306/15/2275612/09/18 0807/25/18205503/01/16 0817 02/18/16 1209 07/07/13 2319 ALKPHOS 52 [...] Liam Parks MD (PGY-5) Infectious Diseases Fellow [facility] Pager: [phone] ID Clinic Associated attestation - Arturo Delacruz [...] of care. . Arturo Delacruz MD PhD Analytical Strategist [facility] Infectious Disease * Consuelo Prado Kyle - [...] Units Date/Time GLUCOSE - POINT OF CARE [[id number]] (Abnormal) Collected: 10/25/22745 Order Status: Completed Specimen: Blood Updated: 10/25/22746 Glucose WB/POC 123 mg/dL Specimen Type Cap Fingerstick HEPATITIS C AB SCREEN RFLX NAAT QUANT [[id number]] (Normal) Collected: 10/25/22138 Order Status: Completed Specimen: [...] HIV-2 ANTIBODY + HIV P24 AG PANEL [[id number]] (Normal) Collected: 10/25/22138 Order Status: Completed Specimen: Blood Updated: 10/25/22255 HIV Antigen/Antibody 1 & 2 Non-reactive Comment: No Laboratory evidence of HIV infection. MAGNESIUM BLOOD [[id number]] (Normal) Collected: 10/25/226 Order Status: Completed Specimen: Blood Updated: 10/25/2247 Magnesium 2.1 mg/dL PHOSPHORUS BLOOD [[id number]] (Normal) Collected: 10/25/226 Order Status: Completed Specimen: Blood Updated: 10/25/2247 Phosphorus 3.7 mg/dL BASIC METABOLIC PANEL (CALCIUM TOTAL) [[id number]] (Abnormal) Collected: 10/25/226 Order Status: Completed Specimen: Blood Updated: 10/25/22 0048 BUN 16 mg/dL Creatinine 0.48 mg/dL Sodium 140 mmol/L Potassium 4.0 mmol/L Chloride 106 mmol/L CO2 25 mmol/L Glucose 116 mg/dL Calcium 9.0 mg/dL Anion Gap 13 BUN/Creatinine Ratio 33 Osmolality Calculated 292 mOsm/kg eGFR by CKD-EPI >90 mL/min/1.73 m2 CBC W AUTO DIFFERENTIAL [[id number]] (Abnormal) Collected: 10/25/226 Order Status: Completed Specimen: [...] Absolute 0.18 GLUCOSE - POINT OF CARE [[id number]] Collected: 10/24/222015 Order Status: Completed Specimen: Blood Updated: 10/24/222024 Glucose WB/POC 111 mg/dL Specimen Type Cap Fingerstick GLUCOSE - POINT OF CARE [[id number]] (Abnormal) Collected: 10/24/22 1237 Order Status: Completed Specimen: Blood Updated: 10/24/22 1734 Glucose WB/POC 130 mg/dL Specimen Type Cap Fingerstick GLUCOSE - POINT OF CARE [[id number]] Collected: 10/24/22 1710 Order Status: Completed Specimen: Blood Updated: 10/24/22 1711 Glucose WB/POC 112 mg/dL Specimen Type Cap Fingerstick LUPUS ANTICOAGULANT PANEL [[id number]] (Abnormal) Collected: 10/23/222028 Order Status: Completed Specimen: [...] of APAS. GLUCOSE - POINT OF CARE [[id number]] (Abnormal) Collected: 10/24/22 0915 Order Status: Completed [...] right lateral ventricle, and approximately 3-4 mm cvfws-dy-rrna midline shift, grossly similar to the prior. [...] verification. Report dictated by Tim Major MD (president mortgage company). Jasper Ornelas MD have personally reviewed and [...] The report is dictated by Miranda Bowen MD(president mortgage company) Jasper Ornelas MD have personally reviewed and [...] dictated by Lorenzo Horta MD (vice president regulatory). Lonnie Ornelas MD have personally reviewed and [...] Dictated by Bassam Jovel M.D. (vice president regulatory) I, Gonzalez Velasco MD have personally reviewed [...] Gastrointestinal # Hx of GERD ?? - COMPENSATION ANALYST swallow evaluation: when stable - Diet: NG [...] at bedside Consuelo Brown Medical Student, MS3 [facility]. Associated attestation - Shahbaz Bowen MD - [...] 23 128/75 Recent Labs Component Name 10/25/22 0007 10/23/22202810/23/22 0129 NA 140 140 140 CL 106 110* 108* CO2 25 23 25 BUN 16 14 13 CREATININE 0.48* 0.56 0.51* CALCIUM 9.0 8.5 8.3* PHOS 3.7 3.1 3.4 Recent Labs Component Name 10/25/22 0007 10/23/22202810/23/22 [...] ?? Interval History: NAEON. Extubated yesterday to [place]. Dentist evaluated, no concern for dental issues. [...] results for input(s): MG in the last 60312 hours. Recent Labs Component Name 10/25/22610/23/22202810/23/22128 PHOS 3.7 3.1 3.4 Recent Labs Component Name 10/23/22202810/20/22 0302 10/19/22 0824 PT 13.4 13.6 12.3 INR 1.0 1.1 0.9 PTT 21.4* 24.4 - No results for input(s): A1C in the last 74209 hours. Recent Labs Component Name 10/20/22 0302 06/15/22 0757 CHOL 173 204* HDL 42 37* LDLCALC 91 117* TRIG 201* 251* Recent Labs Component Name 06/15/22 0757 TSH 1.873 No results for input(s): CKMB, CKTOTAL, CKMB, TROPONINI, BNP in the last [address] CT ANGIO BRAIN NECK STROKE Result Date: 10/19/2022 PROCEDURE: CT ANGIO BRAIN NECK STROKE, DATE/TIME OF EXAM: 10/19/2022 8:16 AM, LOCATION [facility] INDICATION: Code Stroke ADDITIONAL CLINICAL INFORMATION: Ordering [...] DATE/TIME OF EXAM: 10/19/2022 8:04 AM, LOCATION [facility] INDICATION: Code Stroke ADDITIONAL CLINICAL INFORMATION: Ordering [...] issues ??-NPO until passes swallow. TF - COMPENSATION ANALYST swallow evaluation Renal/Electrolytes ? No acute issues [...] Sajan Del Rosario, PharmD 10/25/2022 6:26 AM [facility] Vancomycin Guideline SUBJECTIVE/OBJECTIVE Consuelo Darby is a [...] VANCORNDM, VANCTROUGH, VANCOTROUGH, VANCOPEAK in the last 54190 hours. * Jorge Dodd - 10/25/2022 12:30 [...] to ask pt. Will send message to [facility] Barbara estes, for followup and contacting compliance coordinator once clear wishes of pt are known. [...] Gait Deferred Labs: Recent Labs Component Name 10/23/22202810/23/229 10/22/22 0153 10/21/22 2316 WBC 17.4* 16.7* - 18.4* RBC 2.58* 2.52* - 2.62* HGB 8.0* 7.8* - 8.1* HCT 24.4* 23.8* - 25.1* PLT - - 199 - Recent Labs Component Name 10/23/22202810/23/229 10/21/22 2316 NA 140 140 142 CL 110* 108* 111* CO2 23 25 20* BUN 14 13 16 CREATININE 0.56 0.51* 0.65 CALCIUM 8.5 8.3* 8.0* No results for input(s): MG in the last 60435 hours. Recent Labs Component Name 10/23/22202810/23/2212810/21/22 2316 PHOS 3.1 3.4 2.7* Recent Labs Component Name 10/23/22202810/20/22 0302 10/19/22 0824 PT 13.4 13.6 12.3 INR 1.0 1.1 0.9 PTT 21.4* 24.4 - No results for input(s): A1C in the last 49615 hours. Recent Labs Component Name 10/20/22 0302 06/15/22 0757 CHOL 173 204* HDL 42 37* LDLCALC 91 117* TRIG 201* 251* Recent Labs Component Name 06/15/22 0757 TSH 1.873 No results for input(s): CKMB, CKTOTAL, CKMB, TROPONINI, BNP in the last [address] ANGIO BRAIN NECK STROKE Result Date: 10/19/2022 PROCEDURE: CT ANGIO BRAIN NECK STROKE, DATE/TIME OF EXAM: 10/19/2022 8:16 AM, LOCATION [facility] INDICATION: Code Stroke ADDITIONAL CLINICAL INFORMATION: Ordering [...] DATE/TIME OF EXAM: 10/19/2022 8:04 AM, LOCATION [facility] INDICATION: Code Stroke ADDITIONAL CLINICAL INFORMATION: Ordering [...] Gastrointestinal ? No acute issues ?? - COMPENSATION ANALYST swallow evaluation Renal/Electrolytes ? No acute issues [...] following - maintain normothermic and euglycemic - PT/OT/COMPENSATION ANALYST when stable Temp: [98.5 ??F (36.9 ??C)-100.2 ??F (37.9 ??C)] 98.9 ??F (37.2 ??C) Pulse: [85-140] 113 Resp: [16-34] 22 BP: (97-147)/(55-98) 147/94 O2 %: [30 %] 30 % Recent Labs Component Name 10/23/222028 WBC 17.4* Recent Labs Component Name 10/23/22202810/23/229 10/21/22 2316 06/15/22 0757 12/09/18 0812 07/25/18205503/01/16 [...] - Diet: Goal TF Vital 55cc/hr, FWF [id number] - GI ppx: Lansoprozole - Last BM: 10/22 - BM regimen: senna and miralax Endocrine Patient was taking oral contraceptive home medication. - A1c 6.0 - Accuchecks Hematology Recent Labs Component Name 08/14/23 2029 WBC 17.4* HGB 8.0* HCT 24.4* PLTCOUNT [...] bedside Paris Mohr MD Neurology Resident. PGY-3 [facility]. Associated attestation - Shahbaz Bowen MD - [...] takes deep breath when asked. [place] to [place] [facility] Aortic vegetation 10/23: Vegetation discovered differential [...] 119/61 10/23/22 2100 -- 96 21 119/61 10/23/221999 98.7 ??F [...] Date/Time BETA-2 GLYCOPROTEIN 1 ANTIBODY IGG/IGM PANEL [[id number]] Collected: 10/23/222028 Order Status: Sent Specimen: Blood Updated: 10/23/222118 CARDIOLIPIN ANTIBODY IGA [[id number]] Collected: 10/23/222028 Order Status: Sent Specimen: Blood Updated: 10/23/222118 CARDIOLIPIN ANTIBODY IGG [[id number]] Collected: 10/23/222028 Order Status: Sent Specimen: Blood Updated: 10/23/222118 BETA-2 GLYCOPROTEIN 1 ANTIBODY IGA [[id number]] Collected: 10/23/222028 Order Status: Sent Specimen: Blood Updated: 10/23/222118 CARDIOLIPIN ANTIBODY IGM [[id number]] Collected: 10/23/222028 Order Status: Sent Specimen: Blood Updated: 10/23/222118 PHOSPHORUS BLOOD [[id number]] (Normal) Collected: 10/23/222028 Order Status: Completed Specimen: Blood Updated: 10/23/222113 Phosphorus 3.1 mg/dL MAGNESIUM BLOOD [[id number]] (Normal) Collected: 10/23/222028 Order Status: Completed Specimen: Blood Updated: 10/23/222113 Magnesium 2.1 mg/dL BASIC METABOLIC PANEL (CALCIUM TOTAL) [[id number]] (Abnormal) Collected: 10/23/222028 Order Status: Completed Specimen: Blood Updated: 10/23/222113 BUN 14 mg/dL Creatinine 0.56 mg/dL Sodium 140 mmol/L Potassium 4.1 mmol/L Chloride 110 mmol/L CO2 23 mmol/L Glucose 119 mg/dL Calcium 8.5 mg/dL Anion Gap 11 BUN/Creatinine Ratio 25 Osmolality Calculated 292 mOsm/kg eGFR by CKD-EPI >90 mL/min/1.73 m2 CBC W AUTO DIFFERENTIAL [[id number]] (Abnormal) Collected: 10/23/222028 Order Status: Completed Specimen: [...] Immature Granulocytes Absolute 0.15 LAB MISC TEST [[id number]] Collected: 10/23/222028 Order Status: Sent Specimen: Blood Updated: 10/23/222053 LUPUS ANTICOAGULANT PANEL [[id number]] Collected: 10/23/222028 Order Status: Sent Specimen: Blood Updated: 10/23/222042 GLUCOSE - POINT OF CARE [[id number]] Collected: 10/23/221756 Order Status: Completed Specimen: Blood Updated: 10/23/221757 Glucose WB/POC 105 mg/dL Specimen Type Cap Fingerstick ERYTHROCYTE SEDIMENTATION RATE [[id number]] (Abnormal) Collected: 10/23/22 1547 Order Status: Completed Specimen: Blood Updated: 10/23/22 1625 Erythrocyte Sedimentation Rate Westergren 55 MM/HR C-REACTIVE PROTEIN [[id number]] (Abnormal) Collected: 10/23/22 1547 Order Status: Completed Specimen: Blood Updated: 10/23/22 1619 C-Reactive Protein 12.1 mg/dL GLUCOSE - POINT OF CARE [[id number]] Collected: 10/23/22 1124 Order Status: Completed Specimen: [...] The report is dictated by Miranda Bowen MD(president mortgage company) IJasper MD have personally reviewed and interpreted [...] dictated by Lorenzo Horta MD (vice president regulatory). Lonnie Ornelas MD have personally reviewed and [...] Dictated by Bassam Jovel M.D. (vice president regulatory) Gonzalez Ornelas MD have personally reviewed and [...] febrile Gastrointestinal # Hx of GERD - COMPENSATION ANALYST swallow evaluation: when stable - Diet: NG [...] bedside Cordero Kyle Prado Medical Student, MS3 [facility]. Associated attestation - Shahbaz Bowen MD - [...] see Ms. Consuelo Darby in consultation at [facility] on 10/23/2022 for evaluation of vegetation that [...] REVIEWED: LABS: CBC: Recent Labs Component Name 10/23/22202810/23/2212810/22/22 0153 [...] BMP: Recent Labs Component Name 10/23/22202810/23/2212810/21/22 2316 NA 140 140 142 CL 110* 108* 111* CO2 23 25 20* BUN 14 13 16 CREATININE 0.56 0.51* 0.65 CALCIUM 8.5 8.3* 8.0* No results for input(s): MG in the last 58620 hours. Recent Labs Component Name 10/23/22202810/23/2212810/21/22 2316 PHOS 3.1 3.4 2.7* Hepatic Panel: Recent [...] input(s): CKTOTAL, CKMB, TROPONINI in the last 77444 hours. Invalid input(s): CKMBINDEX Lipid Panel: Recent [...] right lateral ventricle, and approximately 3-4 mm fhwuh-ke-ruop midline shift, grossly similar to the prior. [...] 91 % Max: 100 %] Input/Output: 10/23 07 - 10/24 07 In: 172.8 [I.V.:97.8] Out: - Respiratory: ETT [...] results for input(s): MG in the last 12742 hours. Recent Labs Component Name 10/23/22 0129 10/21/22 2316 10/21/22 0459 PHOS 3.4 2.7* 2.2* Recent Labs Component Name 10/20/22 0302 10/19/22 0824 10/19/22 0809 PT 13.6 12.3 - INR 1.1 0.9 0.9 PTT 24.4 - - No results for input(s): A1C in the last 10909 hours. Recent Labs Component Name 10/20/22 0302 06/15/22 0757 CHOL 173 204* HDL 42 37* LDLCALC 91 117* TRIG 201* 251* Recent Labs Component Name 06/15/22 0757 TSH 1.873 No results for input(s): CKMB, CKTOTAL, CKMB, TROPONINI, BNP in the last [address] ANGIO BRAIN NECK STROKE Result Date: 10/19/2022 PROCEDURE: CT ANGIO BRAIN NECK STROKE, DATE/TIME OF EXAM: 10/19/2022 8:16 AM, LOCATION [facility] INDICATION: Code Stroke ADDITIONAL CLINICAL INFORMATION: Ordering [...] DATE/TIME OF EXAM: 10/19/2022 8:04 AM, LOCATION [facility] INDICATION: Code Stroke ADDITIONAL CLINICAL INFORMATION: Ordering [...] pending PT/OT Evaluation: pending Smoking cessation; will application counselor: N/A Migraine - verapamil 40 TID [...] Gastrointestinal ? No acute issues ?? - COMPENSATION ANALYST swallow evaluation Renal/Electrolytes ? No acute issues [...] start heparin drip pending NSGY clearance given [facility]. Blood cultures ordered UDS negative on admission Rheumatology consulted given family history of [facility] ICU for at least 48 hours. Orientation Level: Unable to Obtain: Family Support (Name and Phone): Extended Emergency Contact Information Primary Emergency Contact: Hi Darby Address: [address] [place] [address] [place] [address] [facility] Relation: Spouse Secondary Emergency Contact: Sandra Disla [facility] Mobile Relation: Mother Transportation at Discharge: Ambulance: READMISSION RISK SCORE is 16 at 2:17 PM 10/23/2022.: Name:Bulmaro Ochoa RN BSN credit manager [phone] * Laura Patel APRN-CLASSIFIED AD TAKER - 10/23/2022 2:10 PM CDT Neurosurgery Plan [...] acute decline in neuro exam. Laura Patel, ASSISTANT DIRECTOR OF PUBLIC WORKS-CLASSIFIED AD TAKER * Sosa Degroot MD - 10/23/2022 2:01 [...] following - maintain normothermic and euglycemic - PT/OT/COMPENSATION ANALYST when stable Temp: [98.2 ??F (36.8 ??C)-99.5 [...] ml Labs: Recent Labs Component Name 10/23/22 0129 WBC [...] ?? SCHEDULED MEDICATIONS: ?? *Hold/Avoid Medication, Other, 799 and 1999 ?? *Hold/Avoid Medication, Other, DIRECTED [...] post acute care needs Patient is an [employer] employee; [employer] for all post acute care needs Payer/Plan Subscriber Name Rel Member # Group # [employer] - M WELL* CONSUELO DARBY Juma [id number] Anticipated level of care at discharge: Home, Acute Rehab Facility: Anticipated level of care provider: None: Anticipated Discharge Date: 10/26/22: Orientation Level: Unable to Obtain: Family Support (Name and Phone): Extended Emergency Contact Information Primary Emergency Contact: Hi Darby Address: [address] [place] [address] [place] [address] [facility] Relation: Spouse Secondary Emergency Contact: Sandra Disla [facility] Mobile Relation: Mother Transportation at Discharge: Ambulance: READMISSION RISK SCORE is 16 at 9:23 AM 10/23/2022.: Name: Carlosalma deliagerhardgrover Maurice * Emir Vail MD - 10/23/2022 8:16 [...] not counted towards critical care time.) Shahbaz S Chawa, MD 10/23/2022 7:45 AM * Jorge Dodd [...] discussed with Dr. Andrés MD. Bob Weaver [facility] * Paris Mohr MD - 10/23/2022 6:46 [...] start heparin drip pending NSGY clearance given [facility]. - Blood cultures ordered - UDS negative [...] - Diet: Goal TF Vital 55cc/hr, FWF 115mtq5o - GI ppx: Lansoprozole - Last BM: [...] bedside Paris Mohr MD Neurology Resident. PGY-3 [facility]. * Jing Powers [facility] - 10/22/2022 2:20 PM CDT Transport Start [...] at bedside Eli Alcaraz MD Neurology Resident. [facility]. Associated attestation - Dary Garvey MD - [...] Yared Chavira - 10/22/2022 11:02 AM CDT Division Engineer provided pastoral care and support to family at patient's bedside - patient's and older sister. With permission, Division Engineer provided compassionate touch and prayed for patient [...] 99 ??F (37.2 ??C) 79 19 113/63 10/22/22330 -- 88 22 -- 08/13/23 0330 -- 88 -- -- 10/22/22 0300 [...] 103 17 153/75 Recent Labs Component Name 10/21/22231510/21/2245810/20/22301 NA 142 142 138 CL 111* 115* 108* CO2 20* 16* 21* BUN 16 12 6* CREATININE 0.65 0.64 0.50* CALCIUM 8.0* 8.2* 8.2* PHOS 2.7* 2.2* - Recent Labs Component Name 10/22/22 0153 10/21/22231510/21/2275210/21/22458 WBC - 18.4* 18.6* 18.7* RBC - [...] results for input(s): MG in the last 09597 hours. Recent Labs Component Name 10/21/22 2316 10/21/22 0459 PHOS 2.7* 2.2* Recent Labs Component Name 10/20/22 0302 10/19/22 0824 10/19/22 0809 PT 13.6 12.3 - INR 1.1 0.9 0.9 PTT 24.4 - - No results for input(s): A1C in the last 74485 hours. Recent Labs Component Name 10/20/22 0302 06/15/22 0757 CHOL 173 204* HDL 42 37* LDLCALC 91 117* TRIG 201* 251* Recent Labs Component Name 06/15/22 0757 TSH 1.873 No results for input(s): CKMB, CKTOTAL, CKMB, TROPONINI, BNP in the last [address] ANGIO BRAIN NECK STROKE Result Date: 10/19/2022 PROCEDURE: CT ANGIO BRAIN NECK STROKE, DATE/TIME OF EXAM: 10/19/2022 8:16 AM, LOCATION [facility] INDICATION: Code Stroke ADDITIONAL CLINICAL INFORMATION: Ordering [...] DATE/TIME OF EXAM: 10/19/2022 8:04 AM, LOCATION [facility] INDICATION: Code Stroke ADDITIONAL CLINICAL INFORMATION: Ordering [...] pending PT/OT Evaluation: pending Smoking cessation; will application counselor: N/A ?? Neurological ?? R M1 [...] pending PT/OT Evaluation: pending Smoking cessation; will application counselor: N/A Migraine - verapamil 40 TID [...] Gastrointestinal ? No acute issues ?? - COMPENSATION ANALYST swallow evaluation Renal/Electrolytes ? No acute issues [...] cont straight cath. Prefer NO puentes insertion PT/OT/COMPENSATION ANALYST Dary Garvey MD Neurologic Critical Care Attending 10/21/2022 * Shania Arce SLP - 10/21/2022 12:27 PM CDT [facility] Department of Physical Medicine & Rehabilitation Progress Note Patient: Consuelo Darby Med Record Number: [id number] Date of : 1980 Age: [age] year old 10/21/22 1200 Therapy on Hold Therapy on Hold Surgery;New Order Required for Therapy Barb Lopes MS [facility]-COMPENSATION ANALYST Speech Language Pathologist * Stephanie Hester MD [...] 102 21 96 % -- -- 10/20/22 1805 108/67 -- -- 101 13 96 [...] Name 10/21/22 0753 10/21/22 0459 10/20/22 1640 10/20/22 0302 WBC 18.6* 18.7* - 19.5* RBC 3.01* 2.98* - 3.83 HGB 9.4* 9.4* 12.0 11.9* HCT 27.9* 27.8* 36.6 35.4 Recent Labs Component Name 10/21/22 04510/20/22 0302 10/19/22 0824 NA 142 138 139 CL 115* 108* 108* CO2 16* 21* 21* BUN 12 6* 13 CREATININE 0.64 0.50* 0.84 CALCIUM 8.2* 8.2* 8.9 No results for input(s): MG in the last 88861 hours. Recent Labs Component Name 10/21/22 0459 PHOS 2.2* Recent Labs Component Name 10/20/22 0302 10/19/22 0824 10/19/22 0809 PT 13.6 12.3 - INR 1.1 0.9 0.9 PTT 24.4 - - No results for input(s): A1C in the last 48361 hours. Recent Labs Component Name 10/20/22 0302 06/15/22 0757 CHOL 173 204* HDL 42 37* LDLCALC 91 117* TRIG 201* 251* Recent Labs Component Name 06/15/22 0757 TSH 1.873 No results for input(s): CKMB, CKTOTAL, CKMB, TROPONINI, BNP in the last [address] ANGIO BRAIN NECK STROKE Result Date: 10/19/2022 PROCEDURE: CT ANGIO BRAIN NECK STROKE, DATE/TIME OF EXAM: 10/19/2022 8:16 AM, LOCATION [facility] INDICATION: Code Stroke ADDITIONAL CLINICAL INFORMATION: Ordering [...] DATE/TIME OF EXAM: 10/19/2022 8:04 AM, LOCATION [facility] INDICATION: Code Stroke ADDITIONAL CLINICAL INFORMATION: Ordering [...] pending PT/OT Evaluation: pending Smoking cessation; will application counselor: N/A ?? Neurological ?? R M1 [...] pending PT/OT Evaluation: pending Smoking cessation; will application counselor: N/A Migraine - verapamil 40 TID [...] Gastrointestinal ? No acute issues ?? - COMPENSATION ANALYST swallow evaluation Renal/Electrolytes ? No acute issues [...] 8:51 AM CDT Neurosurgery Progress Note Consuelo Darby 10/21/22 Hospital Day: 2 Subjective: No [...] Russell, PT - 10/21/2022 8:23 AM CDT [facility] Department of Physical Medicine & Rehabilitation Progress Note Patient: Consuelo Darby Med Record Number: [id number] Date of : 1980 Age: [age] year [...] euglycemic - pending SARAH w/ ILR - PT/OT/COMPENSATION ANALYST when stable Temp: [99 ??F (37.2 ??C)-100.4 [...] Rose OT - 10/21/2022 7:37 AM CDT [facility] Department of Physical Medicine & Rehabilitation Progress Note Patient: Consuelo Darby Med Record Number: [id number] Date of : 1980 Age: [age] year [...] Value Units Date/Time CBC W AUTO DIFFERENTIAL [[id number]] Order Status: Sent Specimen: Blood BLOOD GASES ART + COOX PANEL [[id number]] Order Status: Sent Specimen: Blood, arterial from Arterial Blood COMPLEMENT C3 [[id number]] (Normal) Collected: 10/21/22458 Order Status: Completed Specimen: Blood Updated: 10/21/22546 Complement C3 155 mg/dL MAGNESIUM BLOOD [[id number]] (Normal) Collected: 10/21/22458 Order Status: Completed Specimen: Blood Updated: 10/21/22546 Magnesium 2.2 mg/dL Comment: Hemolysis detected in this specimen. Hemolysis is known to cause elevations in this analyte. Caution should be exercised in the interpretation of this result. Recommend repeat testing if clinically indicated. BASIC METABOLIC PANEL (CALCIUM TOTAL) [[id number]] (Abnormal) Collected: 10/21/22458 Order Status: Completed Specimen: [...] by CKD-EPI >90 mL/min/1.73 m2 PHOSPHORUS BLOOD [[id number]] (Abnormal) Collected: 10/21/22458 Order Status: Completed Specimen: Blood Updated: 10/21/22545 Phosphorus 2.2 mg/dL TROPONIN-I HIGH SENSITIVE BASELINE + 1HR [[id number]] (Normal) Collected: 10/21/22458 Order Status: Completed Specimen: Blood Updated: 10/21/22545 Troponin I High Sensitive <3 ng/L RHEUMATOID FACTOR BLOOD QUANTITATIVE [[id number]] (Normal) Collected: 10/21/22458 Order Status: Completed Specimen: Blood Updated: 10/21/22535 Rheumatoid Factor <15 IU/mL Rheumatoid Factor Screen Negative CBC W/O DIFFERENTIAL [[id number]] (Abnormal) Collected: 10/21/22458 Order Status: Completed Specimen: Blood Updated: 10/21/22524 WBC 18.7 10??3/uL RBC 2.98 10??6/uL Hemoglobin 9.4 g/dL Hematocrit 27.8 % MCV 93.3 fL MCH 31.5 pg MCHC 33.8 g/dL RDW-SD 48.8 fL RDW-CV 14.3 % Platelet Count 260 10??3/uL MPV 10.6 fL nRBC Absolute 0.00 10??3/uL nRBC Auto 0.0 /100 WBC FACTOR V LEIDEN MUTATION PANEL [[id number]] Collected: 10/21/22458 Order Status: Sent Specimen: Blood Updated: 10/21/22 0510 TROPONIN-I HIGH SENSITIVE REFLEX 1HOUR [[id number]] Order Status: Sent Specimen: Blood SARAH BLOOD SCREEN W/REFLEX TITER [[id number]] Collected: 10/21/22458 Order Status: Sent Specimen: Blood Updated: 10/21/22 050 GLUCOSE - POINT OF CARE [[id number]] (Abnormal) Collected: 10/21/22457 Order Status: Completed Specimen: Blood Updated: 10/21/22 0502 Glucose WB/POC 166 mg/dL Specimen Type Cap Fingerstick GLUCOSE - POINT OF CARE [[id number]] (Abnormal) Collected: 10/21/22120 Order Status: Completed Specimen: Blood Updated: 10/21/22 0125 Glucose WB/POC 164 mg/dL Specimen Type Cap Fingerstick BLOOD GASES ART + COOX PANEL [[id number]] (Abnormal) Collected: 10/20/22 2246 Order Status: Completed [...] >20% BLOOD GASES ART + COOX PANEL [[id number]] Order Status: Canceled Specimen: Blood, arterial from Arterial Blood BLOOD GAS ART+LYTES+METAB+COOX POC NOTIF [[id number]] Collected: 10/20/221926 Order Status: Completed Specimen: Other Updated: 10/20/22 2100 Comment Notification Label Only - See Separate Report BLOOD GAS+COOX+LYTES+METAB ARTERIAL POCT [[id number]] (Abnormal) Collected: 10/20/221935 Order Status: Completed Specimen: [...] Whole Blood 1.6 mmol/L HGB HCT PANEL [[id number]] (Normal) Collected: 10/20/22 1640 Order Status: Completed Specimen: Blood Updated: 10/20/22 1701 Hemoglobin 12.0 g/dL Hematocrit 36.6 % HEMOGLOBIN A1C [[id number]] (Abnormal) Collected: 10/20/22 1015 Order Status: Completed [...] to evaluate metabolic control in patients. Reference: [place] [employer] Association, Standards of Care in Diabetes -2020 In patients 70 years and older consider HbA1c target range of 7.0-7.5% (Reference: Ronal David et al. JAMDA. 2012) The Sebia assay for the measurement of HbA1c is a National Glycohemoglobin Standardization Program (NGSP) certified method. GLUCOSE - POINT OF CARE [[id number]] (Abnormal) Collected: 10/20/22 1132 Order Status: Completed Specimen: Blood Updated: 10/20/22 1142 Glucose WB/POC 124 mg/dL Specimen Type Cap Fingerstick LUPUS ANTICOAGULANT PANEL [[id number]] Collected: 10/20/22 0302 Order Status: Completed Specimen: [...] of APAS. GLUCOSE - POINT OF CARE [[id number]] (Abnormal) Collected: 10/20/22 0744 Order Status: Completed Specimen: Blood Updated: 10/20/22 0754 Glucose WB/POC 32 mg/dL Specimen Type Cap Fingerstick GLUCOSE - POINT OF CARE [[id number]] (Abnormal) Collected: 10/20/22 0747 Order Status: Completed [...] Dictated by Bassam Jovel M.D. (vice president regulatory) Gonzalez Ornelas MD have personally reviewed and [...] if febrile Gastrointestinal No active issues - COMPENSATION ANALYST swallow evaluation: failed - Diet: NG - [...] bedside Cordero Kyle Prado Medical Student, MS3 [facility]. Associated attestation - Dary Garvey MD - [...] 18 142/76 10/20/220 -- 105 18 -- 10/20/225 99.1 ??F [...] Salo after family left. Offered reflective listening. 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 Pt and Salo have two daughters, 6 and 15. Encouraged Salo in his honest conversation with the girls. Gave report to Cristina dallas for follow up overnight. Jorge Dodd 10/21/2022 12:25 AM * Jackelyn [...] Jorge Dodd - 10/20/2022 5:49 PM CDT Chaplain Patel found pt's father in [facility] crying. Dad shared that pt was headed to surgery emergently to remove part of her skull . Met mom and pt's spouse Salo. Offered pastoral presence and prayerfor mom and dad. Family is waiting in [facility]. Surgeon met family and knows where to follow up with them. This psychological anthropologist will follow up. 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 Modified Gove: Current Modified Maryann Score: 5 AM-PAC 6 [...] Patient will perform toileting with moderate assist Retirement Goal(s): Patient to discharge to appropriate next [...] Benjamin SLP - 10/20/2022 11:50 AM CDT [facility] Physical Medicine and Rehabilitation Bedside Swallow Assessment Patient: Consuelo Darby Med Record Number: [id number] Date of : 1980 Age: [age] year [...] placement for nutritional support and medication administration. COMPENSATION ANALYST will continue to follow up for ongoin [...] Impression - Pharyngeal: Moderate Education/Interventions: While performing COMPENSATION ANALYST, Patient was instructed in: results of swallow [...] oropharyngeal swallow function to warrant diet upgrade. Retirement Goal (s): Patient to be independent/baseline with functional mobility and self care and be able to safely discharge to prior level of care. Plan: Continue NPO status with plan for ongoing COMPENSATION ANALYST follow up. Cass Lu M.S., [facility]-COMPENSATION ANALYST Speech Language Pathologist [phone] * Bulmaro Ochoa [...] Primary Emergency Contact: Hi Darby Address: [address] [place] [address] [place] [address] [facility] Relation: Spouse Secondary Emergency Contact: Sandra Disla [facility] Mobile Relation: Mother Transportation at Discharge: Family: READMISSION RISK SCORE is 15 at 11:11 AM 10/20/2022.: Name: Bulmaro Ochoa RN BSN credit manager [phone] * Tia Morales PT - 10/20/2022 10:37 AM CDT [facility] Physical Medicine and Rehabilitation Physical Therapy Initial Evaluation Note Patient: Consuelo Darby Med Record Number: [id number] Date of : 1980 Age: [age] year [...] Active;Driving;Other (Comment) (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 * Cass Benjamin, COMPENSATION ANALYST - 10/20/2022 10:33 AM CDT [facility] Department of Physical Medicine & Rehabilitation Progress Note Patient: Consuelo Darby Med Record Number: [id number] Date of : 1980 Age: [age] year old 10/20/22 1033 Missed Visit Missed Visit Pt with other disciplines x2 at time of visit this morning, will plan to follow up agian today for swallow eval Cass Lu M.S., [facility]-COMPENSATION ANALYST Speech Language Pathologist [phone] * Jaime Drew [...] On arrival patient noted to L gautam plasberonica, L hemainopsia, mild dysarthria, and extinction. [...] results for input(s): MG in the last 20221 hours. No results for input(s): PHOS in the last 04069 hours. Recent Labs Component Name 10/19/2282310/19/22 0809 PT 12.3 - INR 0.9 0.9 No results for input(s): A1C in the last 78904 hours. Recent Labs Component Name 10/20/2230106/15/22 075 CHOL 173 204* HDL 42 37* LDLCALC 91 117* TRIG 201* 251* Recent Labs Component Name 06/15/22 075 TSH 1.873 No results for input(s): CKMB, CKTOTAL, CKMB, TROPONINI, BNP in the last [address] ANGIO BRAIN NECK STROKE Result Date: 10/19/2022 PROCEDURE: CT ANGIO BRAIN NECK STROKE, DATE/TIME OF EXAM: 10/19/2022 8:16 AM, LOCATION [facility] INDICATION: Code Stroke ADDITIONAL CLINICAL INFORMATION: Ordering [...] DATE/TIME OF EXAM: 10/19/2022 8:04 AM, LOCATION [facility] INDICATION: Code Stroke ADDITIONAL CLINICAL INFORMATION: Ordering [...] pending PT/OT Evaluation: pending Smoking cessation; will application counselor: N/A ?? Neurological ?? R M1 [...] pending PT/OT Evaluation: pending Smoking cessation; will application counselor: N/A Migraine - verapamil 40 TID [...] Gastrointestinal ? No acute issues ?? - COMPENSATION ANALYST swallow evaluation Renal/Electrolytes ? No acute issues [...] pushes. Patient needs to lay flat so COMPENSATION ANALYST swallow assessment not possible for the time [...] -- -- -- -- -- 10/19/22 0827 174/ 98.5 ??F (36.9 ??C) Oral (!) 116 [...] as patient needs to lie flat and COMPENSATION ANALYST cannot evaluate. Cardiovascular Pulse Min: 94 Max: [...] Protonix 40 mg home medication ordered. - COMPENSATION ANALYST swallow evaluation: pending COMPENSATION ANALYST - Diet: starting tube feeding - Last [...] Guru MD Cordero Kyle Prado Medical Student, M3 [facility]. Associated attestation - Dary Garvey MD - 10/20/2022 3:40 PM CDT For Medical Student Practice Only * Jackelyn Flores RN - 10/19/2022 4:55 PM CDT [facility] * Sosa Degroot MD - 10/19/2022 2:20 [...] #1: (111-158)/(60-105) 158/83 Recent Labs Component Name 10/19/22823 WBC 10.9* Recent Labs Component Name 10/19/22 [...] Gardner SLP - 10/19/2022 1:20 PM CDT [facility] Department of Physical Medicine & Rehabilitation Progress Note Patient: Consuelo Darby Med Record Number: [id number] Date of : 1980 Age: [age] year old 10/19/22 1320 Missed Visit Missed Visit Other (Comment) COMPENSATION ANALYST orders received and acknowledged. Per consultation with RN pt not cleared to sit up to participate in swallow evaluation until later this date. COMPENSATION ANALYST will reattempt as appropriate. Speech Language Pathologist [...] Primary Emergency Contact: Hi Darby Address: [address] [place] [address] [place] [address] [facility] Relation: Spouse Secondary Emergency Contact: Sandra Disla [facility] Mobile Relation: Mother Insurance: Payer/Plan Subscriber Name Rel Member # Group # [employer] LEON [id number] [address] [address] Prior level of functioning: Independent with ADL's [...] Mother and are supportive. Short Term Goals: Slat Basket Maker Helper Machine Goals: Family/Support included in planning: Yes Patient and Family Questions/Concerns: None at present. Discharge Plan: Anticipated level of care at discharge: Home, Acute Rehab Facility Anticipated Discharge Date: 10/26/22 Bulmaro Ochoa RN BSN credit manager [phone] * Yoon Cuadra, PharmD - 10/19/2022 12:29 PM CDT [facility] Pharmacy Medication History Note The current home/prior to admission (OBIEE ARCHITECT) medication list has been reviewed by a [...] please do not hesitate to contact the [facility] pharmacy dept ([phone]). Thank you. Assessment Completed by: Yoon Cuadra [...] ASSESSMENT & PLAN: Plan: - Proceed with SRAAH with possible implantable loop recorder Cardiology High [...] Hester MD - 10/19/2022 8:03 AM CDT [facility] Stroke History and Physical Consuelo Darby Age: [...] N/A Code Stroke Paged 7:26am Arrival at [facility] ED 7:52am NIHSS Completed [...] No aphasia; normal. 10 Dysarthria 1 = [id number] dysarthria; patient slurs at least some words [...] pending PT/OT Evaluation: pending Smoking cessation; will application counselor: N/A Neurological R M1 ischemic stroke; [...] pending PT/OT Evaluation: pending Smoking cessation; will application counselor: N/A Cardiovascular No acute issues - [...] respiratory distress Gastrointestinal No acute issues - COMPENSATION ANALYST swallow evaluation Renal/Electrolytes No acute issues - [...] 140/78 10/19/22 2100 -- 108 20 136/82 10/19/227 -- -- -- 144/79 10/19/22 2000 97.7 [...] 117* No results for input(s): HGBA1C, A1C, [id number], EAG in the last 41831 hours. Recent Labs Component Name 10/20/2230110/19/2282306/15/22 0757 PLTCOUNT [phone] documented in this encounter Procedure Notes * Isacc Lizama MD - 11/05/2022 12:54 PM CDTProcedure(s): [place] CATH BLADDER SIMPLE TEMP Pre-Procedure Diagnose(s): Urinary [...] the meatus 3 separate times. A 14 Micronesian silicone puentes catheter was covered with sterile [...] catheter. Please reference table below. Level Puentes Crawford Sample Patient 1 Teaching Puentes (i.e. Medical student, Tech, RN) - Female without urologic history 2 Registered Nurse, Any Physician, Any Advanced Practitioner - Male >65 yo 3 Charge or Experienced Nurse, Urology SHOE TURNER, Urologist - Multiple failed attempts 4 Urologist [...] completion, the catheter was connected to the clothing manager and calibrated. Appropriate waveform and blood pressure [...] COLONOSCOPY N/A 08/25/2021 HYPERPLASTIC, REPEAT 5 YEARS, OMRA ??? COLONOSCOPY WITH POLYPECTOMY N/A 08/25/2021 N/A; [...] Occupational History ??? 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 Smoking status: [...] No Stress: No Stress Concern Present (10/19/2022) [place] [facility] - Occupational Stress Questionnaire [...] answer any further questions. Jean Perry MD [facility] Dermatology Resident, PGY-4 Associated attestation - Jovany Lindsay MD - 11/15/2022 9:24 PM CDT Attending Physician Supervisory Note I have seen and examined the patient with the resident and I agree with the findings and plan of care as documented by the resident. Date of Service : 11/15/2022 Jovany Lindsay MD Professor Department of Dermatology [facility] * Jean Perry MD - 11/14/2022 5:00 [...] file Occupational History ??? 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 Smoking status: [...] No Stress: No Stress Concern Present (10/19/2022) [place] [facility] - Occupational Stress Questionnaire [...] will continue to follow. Jean Perry MD [facility] Dermatology Resident, PGY-4 Associated attestation - Jovany Lindsay MD - 11/15/2022 9:45 PM CDT Attending Physician Supervisory Note Discussed with resident, pt is improving. Pt was not seen by me. Jovany Lindsay MD Professor Department of Dermatology [facility] * Alhaji Otoole MD - 11/14/2022 7:57 AM CDTAssociated Order(s): IP CONSULT TO HEMATOLOGY [facility] Hematology/ Oncology CONSULT NOTE Admission Date: [...] file Occupational History ??? 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 Smoking status: [...] No Stress: No Stress Concern Present (10/19/2022) [place] [facility] - Occupational Stress Questionnaire [...] 94.5 PLTCOUNT 364 BMP: Recent Labs Lab 11/14/22 023 NA 140 POTASSIUM 3.9 CL 104 CO2 [...] results for input(s): TROPONINI in the last 30483 hours. Amylase/Lipase: No results for input(s): CHELI in the last 44945 hours. Recent Labs Component Name 07/07/13 2319 [...] Palacios MD - 11/12/2022 5:45 PM CDT [facility] INTERNAL MEDICINE CONSULT NOTE Admission Date: [...] RUQ pain. 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 Smoking status: [...] No Stress: No Stress Concern Present (10/19/2022) [place] [facility] - Occupational Stress Questionnaire [...] results for input(s): TROPONINI in the last 89519 hours. Amylase/Lipase: No results for input(s): CHELI in the last 05501 hours. Recent Labs Component Name 07/07/13 2319 [...] 11/12/2022 6:14 PM * Gisselle Jean Baptiste 11/12/2022 2:12 PM CDT Images from the [...] LABS Recent Labs Component Name 11/12/22 0532 10/27/22 2029 10/27/22 0054 WBC 4.8 - 19.5* HGB 9.4* - 8.0* HCT 30.2* - 24.6* PLTCOUNT 333 - 519* PLATELET - - Occasional* - = values in this interval not displayed. Recent Labs Component Name 11/12/22 0532 11/11/22 1703 11/10/22 0223 06/15/22 0757 12/09/18 0812 07/25/186 03/01/16 0817 [...] Internal Medicine, MS4 11/12/2022 Associated attestation - Iscac Palacios MD - 11/12/2022 6:18 PM CDT [...] Assessment: 42 year old female with prior [facility] for stroke now with refractory fever. MRI [...] No Stress: No Stress Concern Present (10/19/2022) [place] [facility] - Occupational Stress Questionnaire [...] *Hold/Avoid warfarin (Coumadin) tablet, Other, 0800 and 1999 0.9% NaCl injection 10-40 mL, Intracatheter, q8h [...] will continue to follow. Tim Rios MD [facility] Dermatology Resident, PGY-2 Associated attestation - Jovany Lindsay MD - 11/15/2022 9:43 PM CDT Attending Physician Supervisory Note I have examined the patient's photo with the resident and I agree with the findings and plan of care as documented by the resident. Date of Service : 11/12/2022 Jovany Lindsay MD Professor Department of Dermatology [facility] * Emir Rooney PA-C - 11/10/2022 12:47 [...] Name 11/10/22 0224 11/08/22 2346 11/07/22 2234 10/27/22202810/27/22 0054 10/23/22 0129 10/22/22 0153 WBC 3.6 [...] 1.8 1.6 1.6 Recent Labs Component Name 11/10/2222211/08/22 2346 11/07/224 NA 136 141 141 GLUCOSE 120* 107 [...] chest. > Dictated by Tim Major MD (president mortgage company). Alexx Ornelas have personally reviewed and interpreted this examination/study. > Interpreting Provider: Alexx Lopez on 11/07/2022 10:30 PM XR ABDOMEN KUB PORTABLE Result Date: 11/06/2022 IMPRESSION: Non-obstructive bowel gas pattern. Report dictated by Mc Castro MD, (president mortgage company). Pepe Ornelas MD have personally reviewed and [...] at ~1230. Emir Rooney PA-C Interventional Radiology [phone] Associated attestation - César Rain MD - [...] the same conclusion. César Rain MD, DABR Lining Strap Closer, [facility]. Vascular and Interventional Radiologist Minimally Invasive Specialist Endovascular interventions for Peripheral Arterial Disease ( PAD) / DVT/ Varicose veins and Pulmonary Embolism Endovascular interventions for Dialysis access Prostate Artery Embolization for BPH in men Uterine Fibroid Embolization for Uterine fibroids in Women For Outpatient/ inpatient appointments : For referrals to VIR: Ambulatory Referral to Interventional Radiology ([id number]) [facility] Coordinator: [phone] Mark Inpatient consults: MARLI Freedman [phone] [facility] Hospital Coordinators : [phone] [facility] Inpatient consults:[phone] For Hospital to Hospital VIR Transfers * [...] Vitamin D3, cholecalciferol, 50 MCG (1999) tablet Inpatient Medications: Current Facility-Administered Medications Medication [...] chest. > Dictated by Tim Major MD (president mortgage company). IAlexx have personally reviewed and interpreted this examination/study. > Interpreting Provider: Alexx Lopez on 11/07/2022 10:30 PM XR ABDOMEN KUB PORTABLE Result Date: 11/06/2022 IMPRESSION: Non-obstructive bowel gas pattern. Report dictated by Mc Castro MD, (president mortgage company). I, Pepe Gonzalez MD have personally reviewed [...] Vitamin D3, cholecalciferol, 50 MCG (1999) tablet Inpatient Medications: Current Facility-Administered Medications Medication [...] chest. > Dictated by Tim Major MD (president mortgage company). I, Alexx Lopez have personally reviewed and [...] from the original note were not included. [facility] Division of Urologic Surgery New Consult Note [...] status: Occupational History ??? 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 Smoking status: [...] Stroke assessment completed 10/19. Maru Mcduffie RN [phone] Care Coordination Nurse Tape Edge Machine Operator * Cass Gomez APRN-ASHOK - 10/30/2022 8:17 [...] s/p tenecteplase and thrombectomy (10/19/2022), right sided rcwqec-aztngo-bhvnxdzi decompressive sonya-craniectomy for refractory ICP (10/20/2022) and [...] report is dictated by Kayla Stevenson MD (president mortgage company) 1 I, Lonnie Rae MD have personally [...] report is dictated by Miranda Bowen MD (president mortgage company) Oriana Ornelas MD have personally reviewed and [...] verification. > Dictated by Clarisa Cantrell MD (president mortgage company). Alexx Ornelas have personally reviewed and interpreted [...] report is dictated by Miranda Bowen MD (president mortgage company) IJoni MD have personally reviewed and interpreted [...] right lateral ventricle, and approximately 3-4 mm qzvvx-ob-teom midline shift, grossly similar to the prior. [...] verification. Report dictated by Tim Major MD (president mortgage company). I, Jasper Sifuentes MD have personally reviewed [...] 10:11 AM CDTAssociated Order(s): IP CONSULT TO MASK INSPECTOR Social Work Consult Note Consult acknowledged Chart reviewed Reason for Consult: SW consulted by Bulmaro Ochoa RN for Patient Admission in facility Comments: Patient is tentatively scheduled for OR 10/30 for right femoral cutdown, thrombectomy, angiogram with possible intervention, possible vein harvest. Patient will need updated therapy orders and notes following surgery. Patient is an [facility] employee w/ [employer] insurance. [facility] Associate Business Analyst Becky is following for disposition needs Discharge Plan: Post acute recommendation: Undetermined or Intense 3 hour per day multidisciplinary inpatient therapies Discharge Facility Information: [facility] Anticipated Discharge Date: 11/03/22 Payer/Plan Subscriber Name Rel Member # Group # [employer] - [facility] WELL* RICKDANIELCONSUELOROBERT Dennison [id number] [address] [address] Emergency Contacts: Extended Emergency Contact Information Primary Emergency Contact: Hi Darby Address: [address] [place] [address] [place] [address] [facility] Relation: Spouse Secondary Emergency Contact: Sandra Disla [facility] Mobile Relation: Mother Thank you for the referral, JAYLENE Holcomb MBA [facility] 10/28/2022 10:12 AM * Jovana Armstrong [...] occlusion of the R EIA + proximal CHILDRENS CLUB ATTENDANT extending into the profunda with reconstitution identified [...] History ??? 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 Smoking status: [...] report is dictated by Miranda Bowen MD (president mortgage company) Oriana Ornelas MD have personally reviewed and [...] verification. > Dictated by Clarisa Cantrell MD (president mortgage company). IAlexx have personally reviewed and interpreted this examination/study. > Interpreting Provider: Alexx Lopez on 10/25/2022 4:16 PM Vascular Surgery High Risk Variables: Cardiac Arrhythmia: no Malnutrition: no Cardiomyopathy: no Chronic Kidney Disease: no Dementia: no Fluid & Electrolyte Disorders: no Respiratory Failure: no Shock: no Cachexia: no Coagulation Defect: yom-kxfscxdh-bqb gtt Jovana Armstrong MD PGY-6 Vascular Surgery Fellow 10/26/22 12:25 PM * Hodan Oliveira RN - 10/25/2022 11:08 AM CDTAssociated Order(s): IP CONSULT TO ENRICHMENT TEACHER I have been consulted due to the possibility or diagnosis of stroke, chart reviewed. Patient Name: Consuelo Darby Arrival: Start: Start (10/19/22819) EMS Activated Code Stroke: Yes Arrival Mode: EMS Arrival Service(document name here): [place] 1342 (10/19/22 08) EMS Glucose Bedside (mg/dL): 141 mg/dL (10/19/22 08) EMS BP: 136/84 (10/19/22 08) Last Known Well: Last known to be well Last known well - Date: 10/19/22 (10/19/22 105) Last known well - Time: 629 (10/19/22 105) Initial NIHSS Score: NIH Total: [...] based on HgBA1c: Diabetic I) HGBA1C >6.5 Plumber Apprentice has been consulted per protocol to provide [...] right lateral ventricle, and approximately 3-4 mm qaupp-ru-hkpo midline shift, grossly similar to the prior. [...] comprehension and verification. Report dictated by Tim aMjor MD (president mortgage company). IJasper MD have personally reviewed and interpreted [...] The report is dictated by Miranda Bowen MD(president mortgage company) Jasper Ornelas MD have personally reviewed and [...] dictated by Lorenzo Horta MD (vice president regulatory). Lonnie Ornelas MD have personally reviewed and [...] Dictated by Bassam Jovel M.D. (vice president regulatory) Gonzalez Ornelas MD have personally reviewed and [...] Darby. Hodan Oliveira RN, BSN Stroke Navigator, [facility] Ascom: [phone] Email: [email or web address] * Ernestine Almanza DMD - 10/24/2022 8:34 [...] Race: White/ Ethnicity: Not or Origin Languages Icelandic [address] [place] [id number] Employer: [employer] CSN: [id number] CARMEN: [id number] E#: [id number] Contact Information [phone] (Home Phone) [phone] (Work Phone) Alternate Drainage Inspector ?? +1 more?? Hi Darby (Spouse) [phone] (Home Phone) Unit: [facility] 3 ICU Bed: 309 / 01 Current location: [facility] MRI * Liam Parks MD - 10/24/2022 1:06 PM CDT [facility] Infectious Diseases Consultation Patient Name: Consuelo Darby 1980 Room: [facility]/ Date of Admission: 10/19/2022 Date of Service: 10/24/2022 Primary Care Physician: Yvan Booth MD Attending Physician: Emir Vail MD Reason for Infectious Disease Consultation Aortic valve vegetation, infective endocarditis rule out History of Present Illness HPI: Consuelo Darby is a 41 year old female with a past medical history significant foressential hypertension, migraine, GERD. Patient presented to [facility] on 10/19/2022 as code [...] or tick bites. She lives with in [place], [place]. 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 They recently went to a trip to [place] for vacation, she bathed in the sea [...] METHOD) Social History As per [facility] Social History Socioeconomic History ??? Marital status: Spouse name: Not on file ??? Number of children: Not on file ??? Years of education: Not on file ??? Highest education level: Not on file Occupational History ??? 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 Smoking status: [...] No Stress: No Stress Concern Present (10/19/2022) [place] [facility] [employer] - Occupational Stress Questionnaire [...] History Current Antibiotics None Prior Antibiotics At [facility] Cefazolin 10/20 Vancomycin 10/20 Home [...] Liam Parks MD (PGY-5) Infectious Diseases Fellow [facility] Pager: [phone] ID Clinic Associated attestation - Arturo Delacruz [...] coordination of care. 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 Smoking status: [...] Yvan Booth MD as PCP - General Joy, Jean Ball MD as PCP - Jaden [...] assess as she was intubated. Good hand supervisor mending bilaterally. MSK: No synovitis, dactylitis, or enthesitis. [...] Range INR 0.9 0.9 - 1.2 Device [id number] Satellite Installation Technician ID [id number] EKG 12-LEAD Result Value Ref Range Ventricular Rate 129 BPM Atrial Rate 129 BPM P-R Interval 134 ms QRS Duration ms 90 ms Q-T Interval ms 318 ms QTC Calculation (Bezet) 465 ms Calculated P [place] 55 degrees Calculated R [place] 13 degrees Calculated T [place] 5 degrees Interpretation EKG SINUS TACHYCARDIA OTHERWISE NORMAL ECG NO PREVIOUS ECGS AVAILABLE Confirmed by FLORA OTT MD ([id number]) on 10/19/2022 5:38:23 PM CBC W AUTO [...] by CKD-EPI >90 >=90 mL/min/1.73 m2 PT-INR [facility] Result Value Ref Range PT 12.3 12.1 [...] BUBBLE STUDY Result Value Ref Range BSA 2.3195556 m2 LV biplane EF 64 54 - [...] Age Predicted HR 181 Target HR 154 [id number] 6.054 cm WHQMB6LG 5.318 cm LEFT VENTRICLE STROKE VOLUME BIPLANE [...] Dr. Jasso. Josue Castellanos MD Rheumatology Fellow [facility] Associated attestation - Gonzalez Jasso MD [...] Rheumatology Fellowship Program Department of Internal Medicine [facility] Medicine * Jaden Ordaz, ASSISTANT DIRECTOR OF PUBLIC WORKS-CLASSIFIED AD TAKER - 10/23/2022 3:23 PM CDTAssociated Order(s): IP CONSULT TO CARD SURGERY - CARDIAC TEAM CARDIAC SURGERY Consult H&P Patient Name: Consuelo Darby : 1980 Private Nuclear Powerplant Supervisor: Dr. Stuart PCP: Yvan Booth MD Referring Facility: [facility] Subjective: Consuelo Darby is a [...] BMP: Recent Labs Component Name 10/23/22 0129 10/21/226 10/21/229 06/15/22 0757 12/09/18 0812 07/25/18 2056 03/01/16 [...] 143* 179* 180* O2SAT 99 99 99 HUZ7RSJ 19.2* 18.1* 20.3 ECHO: TTE- Left??Ventricle: Left [...] see Ms. Consuelo Darby in consultation at [facility] on 10/23/2022 for evaluation of vegetation that [...] EXAM: General appearance: sedated and intubated HEENT: Henry noted in the scalp Neck: The thyroid [...] Component Name 10/23/22 0129 10/22/22 0153 10/21/22231510/21/22 075 WBC 16.7* - 18.4* 18.6* HGB 7.8* - 8.1* 9.4* HCT 23.8* - 25.1* 27.9* MCV 94.4 - 95.8 92.7 PLT - 199 - - Coagulation Panel: Recent Labs Component Name 10/20/22 0302 10/19/22 0810/19/22 0809 PT 13.6 12.3 - INR 1.1 0.9 0.9 PTT 24.4 - - BMP: Recent Labs Component Name 10/23/22 01210/21/22231510/21/22 0459 NA 140 142 142 CL 108* 111* 115* CO2 25 20* 16* BUN 13 16 12 CREATININE 0.51* 0.65 0.64 CALCIUM 8.3* 8.0* 8.2* No results for input(s): MG in the last 17009 hours. Recent Labs Component Name 10/23/22 0129 10/21/22231510/21/22 0459 PHOS 3.4 2.7* 2.2* Hepatic Panel: [...] bacterial vegetation (aortic side). Differential also includes baz-xvitddzqt-qelershqzg-endocarditis (NBTE)/ Libman- Sachs vegetation. Follow up work [...] Units Date/Time GLUCOSE - POINT OF CARE [[id number]] Collected: 10/22/22 0858 Order Status: Completed Specimen: Blood Updated: 10/22/22 0859 Glucose WB/POC 109 mg/dL Specimen Type Cap Fingerstick PLATELET COUNT AUTO CITRATED BLOOD [[id number]] (Normal) Collected: 10/22/22 0153 Order Status: Completed Specimen: Blood Updated: 10/22/22 0221 Platelet Count Citrated Blood 199 10??3/uL CBC W AUTO DIFFERENTIAL [[id number]] (Abnormal) Collected: 10/21/222315 Order Status: Completed Specimen: [...] % Immature Granulocytes Absolute 0.13 MAGNESIUM BLOOD [[id number]] (Normal) Collected: 10/21/222315 Order Status: Completed Specimen: Blood Updated: 10/21/22 2351 Magnesium 2.2 mg/dL PHOSPHORUS BLOOD [[id number]] (Abnormal) Collected: 10/21/222315 Order Status: Completed Specimen: Blood Updated: 10/21/22 235 Phosphorus 2.7 mg/dL BASIC METABOLIC PANEL (CALCIUM TOTAL) [[id number]] (Abnormal) Collected: 10/21/222315 Order Status: Completed Specimen: Blood Updated: 10/21/222350 BUN 16 mg/dL Creatinine 0.65 mg/dL Sodium 142 mmol/L Potassium 3.7 mmol/L Chloride 111 mmol/L CO2 20 mmol/L Glucose 120 mg/dL Calcium 8.0 mg/dL Anion Gap 15 BUN/Creatinine Ratio 25 Osmolality Calculated 296 mOsm/kg eGFR by CKD-EPI >90 mL/min/1.73 m2 GLUCOSE - POINT OF CARE [[id number]] (Abnormal) Collected: 10/21/222317 Order Status: Completed Specimen: Blood Updated: 10/21/22 2323 Glucose WB/POC 171 mg/dL Specimen Type Venous PROTEIN S ACTIVITY [[id number]] (Abnormal) Collected: 10/20/22301 Order Status: Completed Specimen: [...] reference intervals for this test in the [facility] Test Directory (Rpptrip.com). Performed By: [facility] [address] [place], [place] [id number] Transportation Security Screener: Boo Bond MD, PhD CLIA Number: [id number] PROTEIN C ACTIVITY [[id number]] Collected: 10/20/22301 Order Status: Completed Specimen: Blood [...] reference intervals for this test in the [facility] Test Directory (Rpptrip[employer]com). Performed By: [facility] [address] [place] [address] Transportation Security Screener: Boo Bond MD, PhD CLIA Number: [id number] GLUCOSE - POINT OF CARE [[id number]] (Abnormal) Collected: 10/21/221842 Order Status: Completed Specimen: Blood Updated: 10/21/22 184 Glucose WB/POC 129 mg/dL Specimen Type Cap Fingerstick GLUCOSE - POINT OF CARE [[id number]] (Abnormal) Collected: 10/21/22 1210 Order Status: Completed [...] at bedside Radames Hinkle MD Neurology Resident. [facility]. Associated attestation - Dary Garvey MD - [...] No GI issues noted, Last BM was OBIEE ARCHITECT. On daily Senna. Labs reviewed, noted elevated [...] Other (Comment) (has not been assessed by COMPENSATION ANALYST) Pain affectingintake: No Estimated Needs: KCAL: 9948-8526 (20-25kcal/kg IBW) Protein (g): >110 (>2g/kg IBW) [...] Component Value Units Date/Time HGB HCT PANEL [[id number]] Updated: 10/20/22 1512 Order Status: Sent Specimen: Blood HEMOGLOBIN A1C [[id number]] (Abnormal) Collected: 10/20/22 1015 Order Status: Completed [...] to evaluate metabolic control in patients. Reference: [place] Diabetes Association, Standards of Care in Diabetes -2020 In patients 70 years and older consider HbA1c target range of 7.0-7.5% (Reference: Ronal David, et al. JAMDA. 2012) The Sebia assay for the measurement of HbA1c is a National Glycohemoglobin Standardization Program (NGSP) certified method. GLUCOSE - POINT OF CARE [[id number]] (Abnormal) Collected: 10/20/22 1132 Order Status: Completed Specimen: Blood Updated: 10/20/22 1142 Glucose WB/POC 124 mg/dL Specimen Type Cap Fingerstick LUPUS ANTICOAGULANT PANEL [[id number]] Collected: 10/20/22 0302 Order Status: Completed Specimen: [...] of APAS. GLUCOSE - POINT OF CARE [[id number]] (Abnormal) Collected: 10/20/22743 Order Status: Completed Specimen: Blood Updated: 10/20/22753 Glucose WB/POC 32 mg/dL Specimen Type Cap Fingerstick GLUCOSE - POINT OF CARE [[id number]] (Abnormal) Collected: 10/20/22746 Order Status: Completed Specimen: Blood Updated: 10/20/22753 Glucose WB/POC 118 mg/dL Specimen Type Cap Fingerstick BASIC METABOLIC PANEL (CALCIUM TOTAL) [[id number]] (Abnormal) Collected: 10/20/22301 Order Status: Completed Specimen: Blood Updated: 10/20/22335 BUN 6 mg/dL Creatinine 0.50 mg/dL Sodium 138 mmol/L Potassium 3.6 mmol/L Chloride 108 mmol/L CO2 21 mmol/L Glucose 140 mg/dL Calcium 8.2 mg/dL Anion Gap 13 BUN/Creatinine Ratio 12 Osmolality Calculated 286 mOsm/kg eGFR by CKD-EPI >90 mL/min/1.73 m2 LIPID PROFILE [[id number]] (Abnormal) Collected: 10/20/22301 Order Status: Completed Specimen: [...] >500 mg/dL: Very High CBC W/O DIFFERENTIAL [[id number]] (Abnormal) Collected: 10/20/22301 Order Status: Completed Specimen: Blood Updated: 10/20/220 WBC 19.5 10??3/uL RBC 3.83 10??6/uL Hemoglobin 11.9 g/dL Hematocrit 35.4 % MCV 92.4 fL MCH 31.1 pg MCHC 33.6 g/dL RDW-SD 45.7 fL RDW-CV 13.5 % Platelet Count 292 10??3/uL MPV 9.9 fL nRBC Absolute 0.00 10??3/uL nRBC Auto 0.0 /100 WBC PROTEIN S ACTIVITY [[id number]] Collected: 10/20/22301 Order Status: Sent Specimen: Blood Updated: 10/20/22308 PROTEIN C ACTIVITY [[id number]] Collected: 10/20/22301 Order Status: Sent Specimen: Blood Updated: 10/20/22308 GLUCOSE - POINT OF CARE [[id number]] (Abnormal) Collected: 10/19/221949 Order Status: Completed Specimen: [...] at bedside Radames Hinkle MD Neurology Resident. [facility]. Associated attestation - Dary Garvey MD - [...] workup/prevention per stroke team NSGY consulted for [facility] watch Repeat CTH if exam change and give mannitol 1gm/kg q1NC and NPi HTN. Permissive HTN to allow perfusion for now. SBP CAP 180 unless clinical signs of herniation Dysphagia. NG and start TF Dary Garvey MD Neurologic Critical Care Attending 10/20/2022 * Kamari Mfcarlane MD - 10/20/2022 2:24 PM CDTAssociated Order(s): [...] watch. Patient medications include no blood thinners. [facility] NEUROSURGERY HIGH RISK VARIABLES [...] IP CONSULT TO PHYSICAL MED AND REHAB [facility] Rehab has initiated an evaluation per stroke protocol. Will continue to follow for medical stability and tolerance/participation in therapies. Thank you for the referral. Elida Yancey RN, BSN Clinical Liaison Formerly [facility] [phone] * Stacy Lopez RD/OMAIRA - 10/20/2022 8:48 [...] Elevated TG, no A1c in EMR. BM OBIEE ARCHITECT. Assessment: Med/Surg History and Clinical Diagnoses: 41yo [...] Other (Comment) (has not been assessed by COMPENSATION ANALYST) Pain affectingintake: No Estimated Needs: KCAL: 1650 (30kcal/kg of IBW) Protein (g): 55-66 (1.0-1.2gm/kg of IBW) Fluid (ml): 1 ml/kcal Needs based on: Kcal/kg- (Comment) (55kcal/kg of IBW) Recommended Access Route: PO Laboratory values: Recent Labs Component Name 10/20/22 0302 10/19/22 0824 10/19/22 0808 06/15/22 0757 12/09/18 0812 07/25/186 03/01/16 0817 BUN 6* 13 - 12 10 [...] pushes. Patient needs to lay flat so COMPENSATION ANALYST swallow assessment not possible for the time [...] Value Units Date/Time URINE DRUG SCREEN IMMUNOASSAY [[id number]] (Normal) Collected: 10/19/221409 Order Status: Completed Specimen: Urine Updated: 10/19/22 144 Amphetamines Screen Urine Negative Barbiturates Screen Urine Negative Benzodiazepine Screen Urine Negative Opiates Urine Negative Cocaine Metabolites Urine Negative Phencyclidine Screen Urine Negative Cannabinoids Screen Urine Negative Methadone Screen Urine Negative Fentanyl Screen Urine Negative Narrative: The Urine Toxicology Screening Panel does not screen for Propoxyphene, Meprobamate, Carisoprodol, Trazodone, gekz-tvl-ckuijtv medications and/or volatiles (Acetone, Isopropanol, Methanol or Ethylene Glycol). Ethanol, Salicylate, Acetaminophen, Tricyclic Antidepressants and several therapeutic drugsmay be individually assayed in serum or plasma specimen. Toxicology testing by the [facility] is an aid to medical diagnosisand treatment of patients. No documented chain of custody was maintained. Results are intended to be used for clinical purposes only. HCG URINE QUALITATIVE [[id number]] (Normal) Collected: 10/19/221409 Order Status: Completed Specimen: Urine Updated: 10/19/221428 Test Urine Negative PT-INR [facility] [[id number]] (Normal) Collected: 10/19/22823 Order Status: Completed Specimen: Blood Updated: 10/19/22903 PT 12.3 Seconds INR 0.9 Comment: The suggested therapeutic range for standard coumadin (warfarin) therapy is an INR of 2.0-3.0. For high-risk patients (Mechanical Mitral Valve Prosthesis, etc.), the suggested prophylactic therapeutic range is an INR of 2.5-3.5. TROPONIN-I HIGH SENSITIVE BASELINE + 1HR [[id number]] Order Status: Sent Specimen: Blood HEMOGLOBIN A1C [[id number]] Order Status: Sent Specimen: Blood COMPREHENSIVE METABOLIC PANEL [[id number]] (Abnormal) Collected: 10/19/22823 Order Status: Completed Specimen: [...] >90 mL/min/1.73 m2 CBC W AUTO DIFFERENTIAL [[id number]] (Abnormal) Collected: 10/19/22823 Order Status: Completed Specimen: [...] Immature Granulocytes Absolute 0.04 HCG URINE QUALITATIVE [[id number]] Order Status: Canceled Specimen: Urine CREATININE - POCT INTERFACED [[id number]] (Normal) Collected: 10/19/22807 Order Status: Completed Specimen: Blood Updated: 10/19/22817 Creatinine POCT 0.78 mg/dL eGFR >90 mL/min/1.73 m2 GLUCOSE - POINT OF CARE [[id number]] Collected: 10/19/22 0756 Order Status: Completed Specimen: [...] as patient needs to lie flat and COMPENSATION ANALYST cannot evaluate. Cardiovascular Pulse Min: 94 Max: 130, BP Min: 120/73 Max: 174/91 Hx Hypertension - On Metoprolol 25 mg BID at home - Holding as patient needs to lie flat and COMPENSATION ANALYST cannot evaluate. Strict BP goal of SBP<140 [...] Protonix 40 mg home medication ordered. - COMPENSATION ANALYST swallow evaluation: pending - Diet:pending COMPENSATION ANALYST swallow eval. IVF ordered till tomorrow afternoon [...] Feeds/Fluids: NaCL continuous infusion until evaluation by COMPENSATION ANALYST Analgesia: tylenol IV for back pain Sedation: [...] at bedside Radames Hinkle MD Neurology Resident. [facility]. Associated attestation - Dary Garvey MD - [...] 12:18 PM CDTAssociated Order(s): IP CONSULT TO MASK INSPECTOR Consult acknowledged New patient to Stroke Caseload Chart reviewed Stroke type: Ischemic Patient is currently undergoing medical interventions/evaluations; Cerebral angiogram today. Patient is not medically ready to transition to next level of care Post acute recommendation: Undetermined; pending skilled therapy evaluations Insurance authorization is required Payer/Plan Subscriber Name Rel Member # Group # [id number]* CONSUELO DARBY [id number] [address] [address] Please refer to Nurse Tape Edge Machine Operator's Stroke Psychosocial Assessment note for additional information SW will continue to follow for disposition needs as appropriate Thank you for the referral, JAYLENE Holcomb, HUMERA [facility] 10/19/2022 12:19 PM documented in this [...] procedure and its findings. Royer Stovall MD Advertising Sales Manager 11/15/22 1:09 PM I , , was [...] Gastrostomy Abdomen;Left;Upper (Active) Surrounding Skin Dry;Intact 11/10/22 0800 Tube Status Infusing 11/10/22 1741 Gastric Output Amount (mL) 20 ML 11/10/22 [...] Intact 11/10/22 0800 Site Care Cleansed 11/10/22 1741 Graduated Cylinder Change Date 11/09/22 11/10/22 174 [...] ML 11/10/22 08 Gastric Output Description None/NA 11/10/22 174 Position verified Auscultation 11/10/221740 Gastric Residual Amount (ML) 20 ML 11/10/22 174 Gastric Flush Amount 100 ML 11/10/22 08 Gastric Flush Type Water 11/10/22799 Output Amount [...] MD - Primary * Gisselle Florentino MD Bill Poster Installer(s): Rachna Huntley DO Anesthesia Type: general ETT Complications: none Findings: PT and AT signals completed at conclusion of case EBL: 200 mL Urine Output : 500 mL IV Fluid Intake: per anesthesia Drains: Enteral - Nasal/Oral Naso-gastric Nostril/Nare;Left (Active) Output Description None/NA 10/30/22 0800 Tube Status Clamped 10/30/22 0800 Surrounding Skin Dry;Intact 10/30/22 0800 Site Assessment WD 10/30/22 0800 Tube Repositioned No 10/30/22 0800 External Tube Length (cm) 64 cm 10/30/22 06 Position verified Auscultation 10/30/22 0800 Residual Amount (ML) *Excluding Tungsten* 0 ML 10/29/22 1800 Flush Amount 100 ML 10/29/22 2000 Flush Type Water 10/29/22 2000 [REMOVED] Drain 1 Flat Anterior;Left;Upper Head (Removed) Drain Output Amount 20 ml 10/23/22 0400 Status Patent;Device Compressed 10/23/22 1200 Site/Line Assessment WD 10/23/22 1200 Dressing Type Not Applicable 10/23/22 1200 Dressing Status Other 10/23/22 1000 Output Description Serosanguinous 10/23/22 1200 [REMOVED] Enteral - Nasal/Oral Naso-gastric Nostril/Nare;Right (Removed) Output Description Yellow;Green;Bile 10/22/22 0600 Tube Status Clamped 10/23/22 0800 Surrounding Skin Dry;Intact 10/23/22 0800 Site Assessment [facility] 10/23/22 0800 Internal Tube Length (cm) 65 cm 10/23/22 0800 Position verified X-Ray ;Stomach contents obtained 10/23/22 0800 Intake (ml) 90 ml 10/22/22 1800 Flush Amount 255 ML 10/23/22 0600 Flush Type Water 10/23/22 0600 [REMOVED] Enteral - Nasal/Oral Naso-gastric Nostril/Nare;Right (Removed) Tube Status Clamped 10/24/22 1000 Surrounding Skin Dry;Intact 10/24/22 1000 Site Assessment [facility] 10/24/22 1000 Internal Tube Length (cm) 65 cm 10/24/22 1000 Position verified Auscultation;Stomach contents obtained 10/24/22 1000 Intake (ml) 200 ml 10/24/22 0800 Flush Amount 295 ML 10/24/22 0600 Flush Type Water 10/24/22 0600 [REMOVED] Enteral - Nasal/Oral Naso-gastric Nostril/Nare;Right (Removed) Tube Status Infusing 10/28/22 2200 Surrounding Skin Dry;Intact 10/28/22 220 Site Assessment [facility] 10/28/22 220 Tube Repositioned No 10/28/22 220 External Tube Length (cm) 65 cm 10/27/22 0600 Position verified Auscultation;Stomach contents obtained;X-Ray 10/28/22 220 Intake (ml) 60 ml 10/24/22 1500 Residual Amount (ML) *Excluding Tungsten* 0 ML 10/28/22 1800 Flush Amount 100 ML 10/28/22 2000 Flush Type Water 10/28/221999 Specimen(s): ID Type Source Tests Collected by Time Destination A : right femoral thrombus Resection without Tumor Thrombus PATHOLOGY TISSUE Valdez Clay MD 10/30/2022 1218 Implant(s): Implant Name Type Inv. Item Serial No. Theater Technician Lot No. LRB No. Used Action Patch Cv 6X1Cm Vsgrd Bvn Pricrd Strl Patch Cv 6X1Cm Vsgrd Bvn Pricrd Strl [employer] [id number] Right 1 Implanted Rachna Huntley DO * Operative - Valdez Clay MD - 10/30/2022 11:31 AM CDT Vascular Surgery Operative Note Patient Name: Consuelo Darby Date of Surgery: 10/30/2022 Surgeon: Dr Clay Bill Poster Installer: Rachna Huntley DO; Gisselle Florentino MD Pre-Op [...] pericardial patch Patient Disposition: to PACU Rachna R DO Yuko 10/31/2022 10:59 AM I was present for all portions of this procedure. 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 Stuart Bill Poster Installer(s): Richi Anderson MD Type of anesthesia: Dexmedetomidine and propofol per pump, details in MAR Administered 1% lidocaine orally. Sedation start: 903 Sedation stop: 949 Monitoring: Monitoring consisted of: heart rate, clothing manager, continuous pulse oximetry, continuous capnography, frequent blood [...] Implant Name Type Inv. Item Serial No. Theater Technician Lot No. LRB No. Used Action SYNTTHECEL DURA REPAIR [id number] Right 1 Implanted Kamari Mcfarlane MD * Operative - Jazz Marquez MD - 10/20/2022 6:58 PM CDT NAME: Consuelo Darby : 1980 DATE OF OPERATION: 10/20/2022 ATTENDING SURGEON: JAZZ MARQUEZ MD PREOPERATIVE DIAGNOSES: Malignant right MCA infarction POSTOPERATIVE DIAGNOSES: Same PROCEDURES PERFORMED: 1) Right sided ekdpil-xzdzcpb-ktwulolw decompressive sonya-craniectomy for treatment of refractory intracranial [...] temporal squamous bone were made using the [employer] drill. The eduardo holes was undermined with a straight bone curette. After dissecting the dura carefully using a Sandee elevator then the craniotome B1 bit with a footplate was used to elevate the bone flap for a standard decompressive sonya-craniectomy. The bone flap was elevated using a Hoople #1 dissector. The dura was adherent to [...] Implant Name Type Inv. Item Serial No. Theater Technician Lot No. LRB No. Used Action Agent Hmst Thrmb Kt Surgiflo 2Ml Agent Hmst Thrmb Kt Surgiflo 2Ml [employer] [id number] Right 1 Implanted SYNTTHECEL DURA REPAIR [id number] Right 1 Implanted [employer] Adhesion Barrier [id number] Right 1 Implanted ATTENDING ATTESTATION: I reviewed the resident's note and agree with the documented findings. I was present for the entireprocedure. Jazz Marquez MD 10/25/2022 5:37 PM * Brief Op Note - Jaime Drew MD - 10/19/2022 10:19 AM CDT IVR Post-Operative/Procedure Progress Note Surgeon: Mitali Walter Bill Poster Installer(s): Isak Monte Pre-Procedure Diagnosis:R MCA M1 occlusion [...] Lynch MD - 10/19/2022 5:42 PM CDT [facility] Emergency Department Emergency Medicine Resident Note History [...] Initial Electrocardiogram Rate: 126 Rhythm: sinus, tachy [place]: Normal Intervals: No [place] QRS QT prolongation ST/ T wave: No Christopher/d, no significant ST or T wave abnormalities. No evidence of heart block, arrhythmia, ACS equivalents Impression: sinus tachycardia Imaging: CT ANGIO BRAIN NECK STROKE Final Result PROCEDURE: CT ANGIO BRAIN NECK STROKE, DATE/TIME OF EXAM: 10/19/2022 8:16 AM, LOCATION [facility] INDICATION: Code Stroke ADDITIONAL CLINICAL INFORMATION: Ordering [...] DATE/TIME OF EXAM: 10/19/2022 8:04 AM, LOCATION [facility] INDICATION: Code Stroke ADDITIONAL CLINICAL INFORMATION: Ordering [...] MD on 10/19/2022 8:15 AM [facility] (Results Pending) CT HEAD NON CONTRAST [...] not screen for Propoxyphene, Meprobamate, Carisoprodol, Trazodone, ulmw-bfk-nybazuk medications and/or volatiles (Acetone, Isopropanol, Methanol or Ethylene Glycol). Ethanol, Salicylate, Acetaminophen, Tricyclic Antidepressants and several therapeutic drugsmay be individually assayed in serum or plasma specimen. Toxicology testing by the [facility] is an aid to medical diagnosisand [...] left sided weakness noted started @630am today. was in usual state whenawakened this morning. [...] DATE/TIME OF EXAM: 10/19/2022 8:16 AM, LOCATION [facility] INDICATION: Code Stroke ADDITIONAL CLINICAL INFORMATION: Ordering [...] DATE/TIME OF EXAM: 10/19/2022 8:04 AM, LOCATION [facility] INDICATION: Code Stroke ADDITIONAL CLINICAL INFORMATION: Ordering [...] 10/19/2022 8:11 AM CDT Salo Darby () [phone] * Bharat Oreilly RN - 10/19/2022 8:02 AM CDT First slice * Jean Nam RN - 10/19/2022 7:53 AM CDT Bed: T04 Expected date: Expected time: Means of arrival: Comments: Code stroke @ 726 documented in this encounter Miscellaneous Notes * Clinical References JOHANA - Hodan Oliveira RN - 10/25/2022 11:31 AM CDT Images from the original note were not included. 21205 Prediabetes You have been diagnosed with prediabetes. [...] being physically active ?? Being ?? Being [place] ?? Being ?? Being ?? Being ?? [...] blurry vision Last Reviewed Date: 2021 ?? 1111-2402 [employer]. All rights reserved. This information is not intended as a substitute for professional medical care. Always follow your healthcare professional's instructions. * Clinical References AVS - Hodan Oliveira RN - 10/25/2022 11:31 AM CDT 05318 Discharge Instructions for Stroke You have a [...] first appeared. Last Reviewed Date: 2021 ?? 3017-1814 [employer]. All rights reserved. This information is not intended as a substitute for professional medical care. Always follow your healthcare professional's instructions.This information has been modified by your health care provider with permission from the publisher. * Clinical References JOHANA OliveiraHodan RN - 10/25/2022 11:25 AM CDT Images from the original note were not included. 96874 Thrombolytic Therapy for Stroke An ischemic stroke [...] thinners (anticoagulants). Also mention if you take jcxl-jsn-wfuwvly medicines, herbal medicines, or other supplements. ?? [...] dosages of each, in your wallet. Include dfjj-uiu-oemxoin medicines, vitamins, and supplements. ?? Write a [...] stroke-like symptoms. Last Reviewed Date: 2021 ?? 9562-1912 [employer]. All rights reserved. This information is not intended as a substitute for professional medical care. Always follow your healthcare professional's instructions. This information has been modified by your health care provider with permission from the publisher. * Clinical References AVS - Hodan Oliveira RN - 10/25/2022 11:25 AM CDT 42256 Understanding Mechanical Thrombectomy for Ischemic Stroke Mechanical [...] Chest pain Last Reviewed Date: 2021 ?? 0756-3015 [employer]. All rights reserved. This information is not intended as a substitute for professional medical care. Always follow your healthcare professional's instructions. * Clinical References JOHANA OliveiraHodan RN - 10/25/2022 11:25 AM CDT Images from the original note were not included. 19719 What Is Ischemic Stroke? The brain needs [...] first appeared. Last Reviewed Date: 2021 ?? 8686-9010 [employer]. All rights reserved. This information is not intended as a substitute for professional medical care. Always follow your healthcare professional's instructions. * Coding Query - Shahbaz Bowen MD - 10/23/2022 6:21 PM CDT DOCUMENTATION CLARIFICATION REQUEST TO: Dr. Bowen FROM: Olga Mcintyre RN, CDS Email: [email or web address] ([email or web address]) Use the F2 function darden to complete [...] 1:51 PM CDT ACT LR - POCT ([facility]) Routine 10/30/2022 1:50 PM CDT BLOOD GAS+COOX+LYTES+METAB ARTERIAL POCT Routine 10/30/2022 1:33 PM CDT ACT LR - POCT ([facility]) Routine 10/30/2022 1:32 PM CDT BLOOD GAS+COOX+LYTES+METAB ARTERIAL POCT Routine 10/30/2022 12:59 PM CDT ACT LR - POCT ([facility]) Routine 10/30/2022 12:57 PM CDT TRANSFUSE RED BLOOD CELL LEUKOREDUCED UNIT(S) STAT 10/30/2022 12:57 PM CDT BLOOD GAS ART+LYTES+METAB+COOX POC NOTIF STAT 10/30/2022 12:50 PM CDT Primary hypertension ACT LR - POCT ([facility]) Routine 10/30/2022 12:26 PM CDT PATHOLOGY TISSUE Routine 10/30/2022 12:18 PM CDT Ischemia ACT LR - POCT ([facility]) Routine 10/30/2022 12:16 PM CDT ACT LR - POCT ([facility]) Routine 10/30/2022 12:07 PM CDT PREPARE RBC [...] CDT Right middle cerebral artery stroke (HCC) [place] REMOVE BRAIN FOREIGN BODY 10/20/2022 6:58 PM [...] HEPATIC FUNCTION PANEL (11/17/2022 2:02 AM CDT) [facility] Protein Total 7.0 6.0 - 8.3 g/dL 023 3:10 AM [facility] Albumin 2.8(L) 3.4 - 5.0 g/dL 11/17/2022 3:10 AM [facility] Bilirubin Total 0.4 0.2 - 1.2 mg/dL 10/2022 3:10 AM [facility] Bilirubin Conjugated 0.1 0.1 - 0.5 mg/dL 11/17/2022 3:10 AM [facility] Bilirubin Unconjugated 0.3 Unconjugated Bilirubin is a calculated value: Reference ranges have not been established. mg/dL 11/17/2022 3:10 AM [facility] Alkaline Phosphatase 94 40 - 150 U/L 11/17/2022 3:10 AM [facility] ALT 257(H) 5 - 55 U/L 11/17/2022 3:10 AM [facility] AST 138(H) 5 - 34 U/L 11/17/2022 3:10 AM [facility] Albumin/Globulin Ratio 0.7(L) 1.1 - 2.3 11/17/2022 3:10 AM [facility] Blood BLOOD SPECIMEN / Unknown Lab Venipuncture / Unknown 11/17/2022 2:02 AM CDT 11/17/2022 2:40 AM CDT Good Antunez MD LAB - CHEMISTRY [facility]IB[place]NA BLACKMAN [facility] Organization Address City/State/ZIP Co de Phone Number [facility] [address] [place] [address], [facility] [phone] * PHOSPHORUS BLOOD (11/17/2022 2:02 AM CDT) [facility] Phosphorus 3.6 2.9 - 5.1 mg/dL 11/17/2022 3:10 AM CDT [facility] Blood BLOOD SPECIMEN / Unknown Lab Venipuncture / Unknown 11/17/2022 2:02 AM CDT 11/17/2022 2:40 AM CDT Good Antunez MD LAB - CHEMISTRY BIB[place]NA BLACKMAN Performing Organization Address City/[facility]/ZIP Co de Phone Number [address] [address], [facility] [phone] * MAGNESIUM BLOOD (11/17/2022 2:02 AM CDT) Magnesium 2.5 1.6 - 2.6 mg/dL 11/17/2022 3:10 AM T [facility] Blood BLOOD SPECIMEN / Unknown Lab Venipuncture / Unknown 11/17/2022 2:02 AM CDT 11/17/2022 2:40 AM CDT Good Antunez MD LAB - CHEMISTRY [place]NA BLACKMAN Performing Organization Address City/[facility]/ZIP Co de Phone Number [address] [address], [facility] [phone] * (ABNORMAL) BASIC METABOLIC PANEL (CALCIUM TOTAL) (11/17/2022 2:02 AM CDT) BUN 14 7 - 26 mg/dL 11/17/2022 3:10 AM [facility] Creatinine 0.62 0.56 - 0.96 mg/dL 11/17/2022 3:10 AM [facility] Sodium 138 136 - 145 mmol/L 11/17/2022 3:10 AM [facility] Potassium 4.0 3.5 - 4.5 mmol/L 11/17/2022 3:10 AM [facility] Chloride 99 98 - 107 mmol/L 11/17/2022 3:10 AM [facility] CO2 27 22 - 29 mmol/L 11/17/2022 3:10 AM [facility] Glucose 125(H) 70 - 115 mg/dL 11/17/2022 3:10 AM [facility] Calcium 8.9 8.4 - 10.2 mg/dL 11/17/2022 3:10 AM [facility] Anion Gap 12 6 - 16 11/17/2022 3:10 AM [facility] BUN/Creatinine Ratio 23 7 - 23 11/17/2022 3:10 AM [facility] Osmolality Calculated 288 270 - 300 mOsm/kg 11/17/2022 3:10 AM [facility] eGFR by CKD-EPI >90 >=90 mL/min/1.7 3 m2 11/17/2022 3:10 AM [facility] Blood BLOOD SPECIMEN / Unknown Lab Venipuncture / Unknown 11/17/2022 2:02 AM CDT 11/17/2022 2:40 AM CDT Good Antunez MD LAB - CHEMISTRY BIB[place]NA BLACKMAN [facility] Organization Address City/State/ZIP Co de Phone Number [address] [address] [phone] * (ABNORMAL) CBC W AUTO DIFFERENTIAL (11/17/2022 2:02 AM CDT) WBC 9.4 3.5 - 10.5 10? 3 /uL 11/17/2022 2:58 AM [facility] RBC 3.57(L) 3.80 - 5.20 10? 6 /uL 11/17/2022 2:58 AM [facility] Hemoglobin 10.4(L) 12.0 - 15.6 g/dL 11/17/2022 2:58 AM [facility] Hematocrit 33.4(L) 35.0 - 45.0 % 11/17/2022 2:58 AM [facility] MCV 93.6 80.7 - 98.3 fL 11/17/2022 2:58 AM [facility] MCH 29.1 26.7 - 34.0 pg 11/17/2022 2:58 AM [facility] MCHC 31.1 30.8 - 35.9 g/dL 11/17/2022 2:58 AM [facility] RDW-SD 52.4(H) 36.0 - 50.0 fL 11/17/2022 2:58 AM [facility] RDW-CV 15.9(H) 11.2 - 14.8 % 11/17/2022 2:58 AM [facility] Platelet Count 505(H) 150 - 400 10? 3 /uL 11/17/2022 2:58 AM [facility] MPV 11.0 9.4 - 12.9 fL 11/17/2022 2:58 AM [facility] nRBC Absolute 0.00 0 10? 3 /uL 11/17/2022 2:58 AM [facility] nRBC Auto 0.0 0 /100 WBC 11/17/2022 2:58 AM [facility] Neutrophils % 48.8 35.0 - 70.0 % 11/17/2022 2:58 AM [facility] Lymphocytes % 36.2 20.0 - 43.0 % 11/17/2022 2:58 AM [facility] Monocytes % 10.2 5.0 - 13.0 % 11/17/2022 2:58 AM [facility] Eosinophils % 3.1 0.0 - 6.0 % 11/17/2022 2:58 AM [facility] Basophil % 0.4 0.0 - 2.0 % 11/17/2022 2:58 AM [facility] Neutrophils Absolute 4.59 1.60 - 7.00 10? 3 /uL 11/17/2022 2:58 AM [facility] Lymphocyte Absolute 3.41 1.10 - 3.90 10? 3 /uL 11/17/2022 2:58 AM [facility] Monocytes Absolute 0.96 0.26 - 1.07 10? 3 /uL 11/17/2022 2:58 AM [facility] Eosinophils Absolute 0.29 0.00 - 0.47 10? 3 /uL 11/17/2022 2:58 AM [facility] Basophils Absolute 0.04 0.00 - 0.08 10? 3 /uL 11/17/2022 2:58 AM [facility] Immature Granulocytes % 1.3(H) 0.0 - 1.0 % 11/17/2022 2:58 AM CDT [facility] Immature Granulocytes Absolute 0.12 11/17/2022 2:58 AM CDT [facility] Blood BLOOD SPECIMEN / Unknown Lab Venipuncture / Unknown 11/17/2022 2:02 AM CDT 11/17/2022 2:39 AM CDT Good Antunez MD LAB - HEMATOLOGY ORD ERABLES Performing Organization Address City/[facility]/ZIP Co de Phone Number [address] [address], [facility] [phone] * PTT [facility] (11/17/2022 2:02 AM CDT) APTT 34.4 23.0 - 38.4 Seconds 11/17/2022 3:05 AM T [facility] Comment:Suggested therapeuti c range for full dose I.V. unfractionated heparin therapy for venous thromboembolism is 71 to 109 seconds. Blood BLOOD SPECIMEN / Unknown Lab Venipuncture / Unknown 11/17/2022 2:02 AM CDT 11/17/2022 2:39 AM CDT Good Antunez MD LAB - COAGULATION OR DERABLES Performing Organization Address [facility] Co de Phone Number [address] [address], [facility] [phone] * PT-INR [facility] (11/17/2022 2:02 AM CDT) PT 14.4 12.1 - 14.8 Seconds 11/17/2022 3:05 AM T [facility] INR 1.1 See Comment 11/17/2022 3:05 AM T [facility] Comment:The suggested therap eutic range for standard coumadin (warfarin) therapy is an INR of 2.0-3.0. For high-risk patients (Mechanical Mitral Valve Prosthesis, etc.), the suggested prophylactic therapeutic range is an INR of 2.5-3.5. Blood BLOOD SPECIMEN / Unknown Lab Venipuncture / Unknown 11/17/2022 2:02 AM CDT 11/17/2022 2:39 AM CDT Emir Vail MD LAB - COAGULATION OR DERABLES [facility] [address] [place] [address], [facility] [phone] * CT ABDOMEN PELVIS W CONTRAST (11/16/2022 [...] resolved. > Dictated by Abdifatah Jean MD (president mortgage company). I, Alexx Lopez have personally reviewed and interpreted this examination/study. > Interpreting Provider: Alexx Lopez on 11/17/2022 11:31 AM Narrative 11/17/2022 11:31 AM CDT PROCEDURE: ??CT ABDOMEN PELVIS W CONTRAST, DATE/TIME OF EXAM: ??11/16/2022 4:32 PM, LOCATION ??[facility] INDICATION: I33.0: Aortic valve vegetation ADDITIONAL CLINICAL [...] CONTRAST, DATE/TIME OF EXAM: :32 PM, LOCATION [facility] INDICATION: I33.0: Aortic valve vegetation ADDITIONAL CLINICAL [...] resolved. > Dictated by Abdifatah Jean MD (president mortgage company). I, Alexx Lopez have personally reviewed and interpreted this examination/study. > Interpreting Provider: Alexx Lopez on 11/17/2022 11:31 AM Good Antunez MD CT ORDERABLES * (ABNORMAL) DIFFERENTIAL MANUAL (11/16/2022 2:17 AM CDT) WBC (corrected for NRBC) 7.3 10? 3 /uL 11/16/2022 4:29 AM [facility] Total Cell Count 100 11/17/19 23 4:29 AM [facility] Neutrophils Absolute Manual 4.60 1.60 - 7.00 10? 3 /uL 11/16/2022 4:29 AM [facility] Comment:(BANDS+SEGS) x WBC = NEUT # (ANC) Lymphocyte Absolute Manual 1.75 1.10 - 3.90 10? 3 /uL 11/16/2022 4:29 AM [facility] Monocytes Absolute Manual 0.80 0.26 - 1.07 10? 3 /uL 11/16/2022 4:29 AM [facility] Eosinophils Absolute Manual 0.15 0.00 - 0.47 10? 3 /uL 11/16/2022 4:29 AM [facility] Band % Manual 1 0 - 10 % 11/16/2022 4:29 AM [facility] Neutrophil % Manual 62 35 - 70 % 11/16/2022 4:29 AM [facility] Lymphocyte % Manual 24 20 - 43 % 11/16/2022 4:29 AM [facility] Monocytes % Manual 11 5 - 13 % 11/16/2022 4:29 AM [facility] Eosinophils % Manual 2 0 - 6 % 11/16/2022 4:29 AM [facility] Platelet Estimate Adequate Adequate 11/16/2022 4:29 AM [facility] Anisocytosis Occasional( A) None 11/16/2022 4:29 AM [facility] Polychromasia Few(A) None 11/16/2022 4:29 AM [facility] Ovalocytes Occasional( A) None 11/16/2022 4:29 AM [facility] Eduardo Cells Occasional( A) None 11/16/2022 4:29 AM [facility] Smudge Cells Rare(A) None 11/16/2022 4:29 AM [facility] Blood BLOOD SPECIMEN / Unknown Lab Venipuncture / Unknown 11/16/2022 2:17 AM CDT 11/16/2022 3:01 AM CDT Good Antunez MD LAB - HEMATOLOGY ORD JINBLES [address] [address], [facility] [phone] * PHOSPHORUS BLOOD (11/16/2022 2:17 AM CDT) Phosphorus 3.5 2.9 - 5.1 mg/dL 11/16/2022 3:30 AM T [facility] Blood BLOOD SPECIMEN / Unknown Lab Venipuncture / Unknown 11/16/2022 2:17 AM CDT 11/16/2022 3:02 AM CDT Good Antunez MD LAB - CHEMISTRY ORDDanyelle BLACKMAN [facility] [address] [place] [address], [place] [phone] * MAGNESIUM BLOOD (11/16/2022 2:17 AM CDT) Pathologist [facility] Magnesium 2.4 1.6 - 2.6 mg/dL 11/16/2022 3:30 AM [facility] Blood BLOOD SPECIMEN / Unknown Lab Venipuncture / Unknown 11/16/2022 2:17 AM CDT 11/16/2022 3:02 AM CDT Good Antunez MD LAB - CHEMISTRY BIBIANA BLACKMAN [facility] Organization Address City/State/ZIP Co de Phone Number [facility] [address] [place] [address], [facility] [phone] * (ABNORMAL) BASIC METABOLIC PANEL (CALCIUM TOTAL) (11/16/2022 2:17 AM CDT) Pathologist [facility] BUN 13 7 - 26 mg/dL 11/16/2022 3:30 AM [facility] Creatinine 0.57 0.56 - 0.96 mg/dL 11/16/2022 3:30 AM [facility] Sodium 139 136 - 145 mmol/L 11/16/2022 3:30 AM [facility] Potassium 4.0 3.5 - 4.5 mmol/L 11/16/2022 3:30 AM [facility] Chloride 104 98 - 107 mmol/L 11/16/2022 3:30 AM [facility] CO2 27 22 - 29 mmol/L 11/16/2022 3:30 AM [facility] Glucose 129(H) 70 - 115 mg/dL 11/16/2022 3:30 AM [facility] Calcium 8.8 8.4 - 10.2 mg/dL 11/16/2022 3:30 AM [facility] Anion Gap 12 8 - 18 11/16/2022 3:30 AM [facility] BUN/Creatinine Ratio 23 7 - 23 11/16/2022 3:30 AM [facility] Osmolality Calculated 290 270 - 300 mOsm/kg 11/16/2022 3:30 AM [facility] eGFR by CKD-EPI >90 >=90 mL/min/1.7 3 m2 11/16/2022 3:30 AM [facility] Blood BLOOD SPECIMEN / Unknown Lab Venipuncture / Unknown 11/16/2022 2:17 AM CDT 11/16/2022 3:02 AM CDT Good Antunez MD LAB - CHEMISTRY BIBIANA BLACKMAN [facility] Organization Address City/State/ZIP Co de Phone Number [facility] [address] [place] [address], [facility] [phone] * (ABNORMAL) CBC W AUTO DIFFERENTIAL (11/16/2022 2:17 AM CDT) WBC 7.3 3.5 - 10.5 10? 3 /uL 11/16/2022 3:12 AM [facility] RBC 3.49(L) 3.80 - 5.20 10? 6 /uL 11/16/2022 3:12 AM [facility] Hemoglobin 10.1(L) 12.0 - 15.6 g/dL 11/16/2022 3:12 AM [facility] Hematocrit 32.6(L) 35.0 - 45.0 % 11/16/2022 3:12 AM [facility] MCV 93.4 80.7 - 98.3 fL 11/16/2022 3:12 AM [facility] MCH 28.9 26.7 - 34.0 pg 11/16/2022 3:12 AM [facility] MCHC 31.0 30.8 - 35.9 g/dL 11/16/2022 3:12 AM [facility] RDW-SD 51.5(H) 36.0 - 50.0 fL 11/16/2022 3:12 AM [facility] RDW-CV 15.6(H) 11.2 - 14.8 % 11/16/2022 3:12 AM [facility] Platelet Count 446(H) 150 - 400 10? 3 /uL 11/16/2022 3:12 AM [facility] MPV 10.9 9.4 - 12.9 fL 11/16/2022 3:12 AM CDT [facility] nRBC Absolute 0.00 0 10? 3 /uL 11/16/2022 3:12 AM T [facility] nRBC Auto 0.0 0 /100 WBC 11/16/2022 3:12 AM T [facility] Blood BLOOD SPECIMEN / Unknown Lab Venipuncture / Unknown 11/16/2022 2:17 AM CDT 11/16/2022 3:01 AM CDT Good Antunez MD LAB - HEMATOLOGY ORD ERABLES Performing Organization Address [facility]/ZIP Co de Phone Number [address] [address], [facility] [phone] * PTT [facility] (11/16/2022 2:17 AM CDT) APTT 26.0 23.0 - 38.4 Seconds 11/16/2022 3:23 AM [facility] Comment:Suggested therapeuti c range for full dose I.V. unfractionated heparin therapy for venous thromboembolism is 71 to 109 seconds. Blood BLOOD SPECIMEN / Unknown Lab Venipuncture / Unknown 11/16/2022 2:17 AM CDT 11/16/2022 3:02 AM CDT Good Antunez MD LAB - COAGULATION OR DERABLES Performing Organization Address [facility]/ZIP Co de Phone Number [address] [address], [facility] [phone] * PT-INR [facility] (11/16/2022 2:17 AM CDT) PT 13.9 12.1 - 14.8 Seconds 11/16/2022 3:23 AM [facility] INR 1.1 See Comment 11/16/2022 3:23 AM T [facility] Comment:The suggested therap eutic range for standard coumadin (warfarin) therapy is an INR of 2.0-3.0. For high-risk patients (Mechanical Mitral Valve Prosthesis, etc.), the suggested prophylactic therapeutic range is an INR of 2.5-3.5. Blood BLOOD SPECIMEN / Unknown Lab Venipuncture / Unknown 11/16/2022 2:17 AM CDT 11/16/2022 3:02 AM CDT Emir Vail MD LAB - COAGULATION OR DERABLES Performing Organization Address City/[facility]/ZIP Co de Phone Number [address] [address], [facility] [phone] * GRAM STAIN (LAB ORDERED) (11/15/2022 12:27 PM CDT) Gram Stain No polymorphonuclear cells 11/15/2022 4:45 PM CDT [facility] Gram Stain No organisms seen 023 4:45 PM CDT [facility] Microbiology Collection / Unknown 11/15/2022 12:27 PM CDT 11/15/2022 12:27 PM CDT Good Antunez MD LAB - MICROBIOLOGY O RDERABLES Performing Organization Address City/[facility]/ZIP Co de Phone Number [address] [address], [place] [phone] * CULTURE CSF+GRAM STAIN (11/15/2022 12:25 PM CDT) Culture No growth ROSELIA 11/22/2022 4:18 AM CDT [facility] MICROBIOLOGY Gram Stain No polymorphonuclear cells 11/22/2022 4:18 AM CDT [facility] MICROBIOLOG[facility] Gram Stain No organisms seen 023 4:18 AM CDT [facility]CRO[facility] Cerebral spinal fluid CEREBROSPINAL FLUID SPECIMEN / Unknown Collection / Unknown 11/15/2022 12:25 PM CDT 11/15/2022 12:25 PM CDT Good Antunez MD LAB - MICROBIOLOGY O RDERABLES Performing Organization Address City/[facility]/ZIP Co de Phone Number [facility]CRO[facility] [address] [place] [address] [phone] * HOLD SPECIMEN CSF (11/15/2022 12:25 PM CDT) Specimen Hold 11/15/2022 1:32 PM CDT [facility] Comment:The Hold Sample has been received in the lab and will be held for 30 days. Cerebral spinal fluid CEREBROSPINAL FLUID SPECIMEN / Unknown Collection / Unknown 11/15/2022 12:25 PM CDT 11/15/2022 12:25 PM CDT Good Antunez MD LAB - BODY FLUID ORD ERABLES [facility] [address] [place] [address], [facility] [phone] * MENINGITIS ENCEPHALITIS PCR PANEL CSF (11/15/2022 12:25 PM CDT) Listeria monocytogenes PCR Not Detected 11/17/2022 7:00 AM CDT [facility] ([facility]) Escherichia coli K1 PCR Not Detected 11/17/2022 7:00 AM CDT [facility] ([facility]) Haemophilus influenzae PCR Not Detected 11/17/2022 7:00 AM CDT [facility] ([facility]) Neisseria meningitidis PCR Not Detected 11/17/2022 7:00 AM CDT [facility] ([facility]) Streptococcus agalactiae PCR Not Detected 11/17/2022 7:00 AM CDT [facility] ([facility]) Streptococcus pneumoniae PCR Not Detected 11/17/2022 7:00 AM CDT [facility] ([facility]) Cytomegalovirus PCR Not Detected 11/17/2022 7:00 AM CDT [facility] ([facility]) Enterovirus PCR Not Detected 11/17/2022 7:00 AM CDT [facility] ([facility]) Herpes Simplex Virus 1 PCR Not Detected 11/17/2022 7:00 AM CDT [facility] ([facility]) Herpes Simplex Virus 2 PCR Not Detected 11/17/2022 7:00 AM CDT [facility] ([facility]) Human Herpesvirus 6 PCR Not Detected 11/17/2022 7:00 AM CDT [facility] ([facility]) Human parechovirus PCR Not Detected 11/17/2022 7:00 AM CDT [facility] ([facility]) Varicella zoster virus PCR Not Detected 11/17/2022 7:00 AM CDT [facility] ([facility]) Cryptococcus neoformans/gattii PCR Not Detected 11/17/2022 7:00 AM CDT [facility] ([facility]) Comment: INTERPRETIVE INFORMATION: Meningitis Encephalitis Panel [...] factors and other laboratory information. Performed By: [address] [address] Transportation Security Screener: Boo Bond MD, PhD CLIA Number: [id number] Cerebral spinal fluid CEREBROSPINAL FLUID SPECIMEN / Unknown Collection / Unknown 11/15/2022 12:25 PM CDT 11/15/2022 12:25 PM CDT Good Antunez MD LAB - MICROBIOLOGY O RDERABLES [facility]) [address] [place] [address], [facility] * CELL COUNT W DIFFERENTIAL CSF (11/15/2022 12:25 PM CDT) Color Fluid Colorless Colorless, Straw 11/15/2022 12:42 PM CDT [facility] Clarity Fluid Clear Clear 11/15/2022 12:42 PM CDT [facility] Volume Fluid 3.5 mL 11/15/2022 12:42 PM CDT [facility] WBC Calculation Fluid 1 0 - 5 x10e6/L 11/15/2022 12:42 PM CDT [facility] RBC Calculation 4 x10e6/L 12:42 PM CDT [facility] Xanthochromia Fluid Negative Negative 11/15/2022 12:42 PM CDT [facility] Differential 11/15/2022 12:42 PM CDT [facility] Comment:No differential perf ormed per procedure. Cerebral spinal fluid CEREBROSPINAL FLUID SPECIMEN / Unknown Collection / Unknown 11/15/2022 12:25 PM CDT 11/15/2022 12:25 PM CDT Narrative [facility] - 11/15/2022 12:42 PM CDT No reference ranges established for body fluid cell counts. The reference ranges provided are derived from published literature. The test results must be integrated into the clinical context for interpretation. Good Antunez MD LAB - BODY FLUID ORD ERABLES [address] [address], [place] [phone] * PROTEIN CSF (11/15/2022 12:25 PM CDT) Protein CSF 34 15 - 45 mg/dL 11/15/2022 1:15 PM CDT [facility] Cerebral spinal fluid CEREBROSPINAL FLUID SPECIMEN / Unknown Collection / Unknown 11/15/2022 12:25 PM CDT 11/15/2022 12:25 PM CDT Good Antunez MD LAB - BODY FLUID ORD ERABLES [address] [address], [place] [phone] * GLUCOSE CSF (11/15/2022 12:25 PM CDT) Glucose CSF 57 40 - 70 mg/dL 11/15/2022 1:15 PM CDT [facility] Cerebral spinal fluid CEREBROSPINAL FLUID SPECIMEN / Unknown Collection / Unknown 11/15/2022 12:25 PM CDT 11/15/2022 12:25 PM CDT Good Antunez MD LAB - BODY FLUID ORD ERABLES [address] [address], [place] [phone] * CULTURE FUNGUS OTHER+FUNGUS SMEAR (11/15/2022 12:17 PM CDT) Culture No fungus isolated ROSELIA 12/11/2022 7:18 AM CDT [facility]CRO[facility] Fungus Stain No yeast or hyphae seen 12/11/2022 7:18 AM CDT [facility] Microbiology CEREBROSPINAL FLUID SPECIMEN / Unknown Collection / Unknown 11/15/2022 12:17 PM CDT 11/15/2022 12:29 PM CDT Good Antunez MD LAB - MICROBIOLOGY O RDERABLES [facility] [address] [place] [address], [facility] [phone] * CULTURE AFB+SMEAR (11/15/2022 12:17 PM CDT) Culture No acid-fast bacillus isolated 12/25/2022 7:40 AM CDT [facility] AFB Smear No acid-fast bacilli seen 12/25/2022 7:40 AM CDT [facility] Microbiology CEREBROSPINAL FLUID SPECIMEN / Unknown Collection / Unknown 11/15/2022 12:17 PM CDT 11/15/2022 12:29 PM CDT Good Antunez MD LAB - MICROBIOLOGY O RDERABLES [facility] [address] [place] [address], [facility] [phone] * FL LUMBAR PUNCTURE (11/15/2022 12:10 PM CDT) Anatomical Region Laterality Modality Spine Radiographic Irene ging 11/15/2022 1:13 PM CDT Impressions 11/15/2022 2:16 PM CDT IMPRESSION: 1.Successful lumbar puncture under fluoroscopic guidance at L3-L4. > Dictated by Royer Stovall MD (president mortgage company). I, Oriana Suarez MD have personally reviewed and interpreted this examination/study. > Interpreting Provider: Oriana Suarez MD on 11/15/2022 2:16 PM Narrative 11/15/2022 2:16 PM CDT PROCEDURE: ??FL LUMBAR PUNCTURE, DATE/TIME OF EXAM: ??11/15/2022 1:24 PM, LOCATION ??[facility] INDICATION: R50.9: Fever, unspecified fever cause ADDITIONAL [...] DATE/TIME OF EXAM: 11/15/2022 1:24 PM, LOCATION [facility] INDICATION: R50.9: Fever, unspecified fever cause ADDITIONAL [...] L3-L4. > Dictated by Royer Stovall MD (president mortgage company). IOriana MD have personally reviewed and interpreted this examination/study. > Interpreting Provider: Oriana Suarez MD on 11/15/2022 2:16 PM Good Antunez MD FLUOROSCOPY ORDERABL ES * (ABNORMAL) EOSINOPHIL URINE SMEAR (11/15/2022 9:57 AM CDT) Eosin Stain Urine Rare(A) None 11/15/2022 12:46 PM CDT [facility] Urine URINE SPECIMEN OBTAINED BY CLEAN CATCH PROCEDURE / Unknown Collection / Unknown 11/15/2022 9:57 AM CDT 11/15/2022 10:00 AM CDT Good Antunez MD LAB - URINE CHEMISTR Y ORDERABLES [address] [address], [facility] [phone] * (ABNORMAL) HEPATIC FUNCTION PANEL (11/15/2022 2:12 AM CDT) Protein Total 6.5 6.0 - 8.3 g/dL 023 3:40 AM [facility] Albumin 2.5(L) 3.4 - 5.0 g/dL 11/15/2022 3:40 AM CDT [facility] Bilirubin Total 0.3 0.2 - 1.2 mg/dL 08/2022 3:40 AM T [facility] Bilirubin Conjugated 0.1 0.1 - 0.5 mg/dL 11/15/2022 3:40 AM [facility] Bilirubin Unconjugated 0.2 Unconjugated Bilirubin is a calculated value: Reference ranges have not been established. mg/dL 11/15/2022 3:40 AM [facility] Alkaline Phosphatase 80 40 - 150 U/L 11/15/2022 3:40 AM [facility] ALT 237(H) 5 - 55 U/L 11/15/2022 3:40 AM [facility] AST 104(H) 5 - 34 U/L 11/15/2022 3:40 AM [facility] Albumin/Globulin Ratio 0.6(L) 1.1 - 2.3 11/15/2022 3:40 AM [facility] Blood BLOOD SPECIMEN / Unknown Lab Venipuncture / Unknown 11/15/2022 2:12 AM CDT 11/15/2022 3:07 AM CDT Good Antunez MD LAB - CHEMISTRY BIBIANA BLACKMAN [facility] Organization Address City/State/[facility] Co de Phone Number [facility] [address] [place] [address], [facility] [phone] * PHOSPHORUS BLOOD (11/15/2022 2:12 AM CDT) Pathologist [facility] Phosphorus 3.0 2.9 - 5.1 mg/dL 11/15/2022 3:38 AM [facility] Blood BLOOD SPECIMEN / Unknown Lab Venipuncture / Unknown 11/15/2022 2:12 AM CDT 11/15/2022 3:07 AM CDT Good Antunez MD LAB - CHEMISTRY BIBIANA BLACKMAN Performing Organization Address City/[facility]/ZIP Co de Phone Number [address] [address], [facility] [phone] * MAGNESIUM BLOOD (11/15/2022 2:12 AM CDT) Magnesium 2.0 1.6 - 2.6 mg/dL 11/15/2022 3:38 AM [facility] Blood BLOOD SPECIMEN / Unknown Lab Venipuncture / Unknown 11/15/2022 2:12 AM CDT 11/15/2022 3:07 AM CDT Good Antunez MD LAB - CHEMISTRY BIBIANA BLACKMAN Performing Organization Address [facility] Co de Phone Number [address] [address], [facility] [phone] * (ABNORMAL) BASIC METABOLIC PANEL (CALCIUM TOTAL) (11/15/2022 2:12 AM CDT) BUN 12 7 - 26 mg/dL 11/15/2022 3:38 AM [facility] Creatinine 0.50(L) 0.56 - 0.96 mg/dL 11/15/2022 3:38 AM [facility] Sodium 137 136 - 145 mmol/L 11/15/2022 3:38 AM [facility] Potassium 4.0 3.5 - 4.5 mmol/L 11/15/2022 3:38 AM [facility] Chloride 103 98 - 107 mmol/L 11/15/2022 3:38 AM [facility] CO2 26 22 - 29 mmol/L 11/15/2022 3:38 AM [facility] Glucose 115 70 - 115 mg/dL 11/15/2022 3:38 AM [facility] Calcium 8.6 8.4 - 10.2 mg/dL 11/15/2022 3:38 AM [facility] Anion Gap 12 8 - 18 11/15/2022 3:38 AM [facility] BUN/Creatinine Ratio 24(H) 7 - 23 11/15/2022 3:38 AM [facility] Osmolality Calculated 285 270 - 300 mOsm/kg 11/15/2022 3:38 AM [facility] eGFR by CKD-EPI >90 >=90 mL/min/1.7 3 m2 11/15/2022 3:38 AM [facility] Blood BLOOD SPECIMEN / Unknown Lab Venipuncture / Unknown 11/15/2022 2:12 AM CDT 11/15/2022 3:07 AM CDT Good Antunez MD LAB - CHEMISTRY BIBIANA BLACKMAN [facility] Organization Address City/State/ZIP Co de Phone Number [facility] [address] [place] [address], [facility] [phone] * (ABNORMAL) CBC W AUTO DIFFERENTIAL (11/15/2022 2:12 AM T) WBC 5.5 3.5 - 10.5 10? 3 /uL 11/15/2022 3:13 AM [facility] RBC 3.51(L) 3.80 - 5.20 10? 6 /uL 11/15/2022 3:13 AM [facility] Hemoglobin 10.0(L) 12.0 - 15.6 g/dL 11/15/2022 3:13 AM [facility] Hematocrit 32.6(L) 35.0 - 45.0 % 11/15/2022 3:13 AM [facility] MCV 92.9 80.7 - 98.3 fL 11/15/2022 3:13 AM [facility] MCH 28.5 26.7 - 34.0 pg 11/15/2022 3:13 AM [facility] MCHC 30.7(L) 30.8 - 35.9 g/dL 11/15/2022 3:13 AM [facility] RDW-SD 50.4(H) 36.0 - 50.0 fL 11/15/2022 3:13 AM [facility] RDW-CV 15.2(H) 11.2 - 14.8 % 11/15/2022 3:13 AM [facility] Platelet Count 404(H) 150 - 400 10? 3 /uL 11/15/2022 3:13 AM [facility] MPV 11.1 9.4 - 12.9 fL 11/15/2022 3:13 AM [facility] nRBC Absolute 0.00 0 10? 3 /uL 11/15/2022 3:13 AM [facility] nRBC Auto 0.0 0 /100 WBC 11/15/2022 3:13 AM [facility] Neutrophils % 44.1 35.0 - 70.0 % 11/15/2022 3:13 AM [facility] Lymphocytes % 35.4 20.0 - 43.0 % 11/15/2022 3:13 AM [facility] Monocytes % 8.9 5.0 - 13.0 % 11/15/2022 3:13 AM [facility] Eosinophils % 10.3(H) 0.0 - 6.0 % 11/15/2022 3:13 AM [facility] Basophil % 0.4 0.0 - 2.0 % 11/15/2022 3:13 AM [facility] Neutrophils Absolute 2.43 1.60 - 7.00 10? 3 /uL 11/15/2022 3:13 AM [facility] Lymphocyte Absolute 1.95 1.10 - 3.90 10? 3 /uL 11/15/2022 3:13 AM [facility] Monocytes Absolute 0.49 0.26 - 1.07 10? 3 /uL 11/15/2022 3:13 AM [facility] Eosinophils Absolute 0.57(H) 0.00 - 0.47 10? 3 /uL 11/15/2022 3:13 AM [facility] Basophils Absolute 0.02 0.00 - 0.08 10? 3 /uL 11/15/2022 3:13 AM [facility] Immature Granulocytes % 0.9 0.0 - 1.0 % 11/15/2022 3:13 AM [facility] Immature Granulocytes Absolute 0.05 11/15/2022 3:13 AM [facility] Blood BLOOD SPECIMEN / Unknown Lab Venipuncture / Unknown 11/15/2022 2:12 AM CDT 11/15/2022 3:07 AM CDT Good Antunez MD LAB - HEMATOLOGY ORD ERABLES Performing Organization Address [facility] Co de Phone Number [address] [address], [facility] [phone] * PTT [facility] (11/15/2022 2:12 AM CDT) APTT 28.2 23.0 - 38.4 Seconds 11/15/2022 3:34 AM CDT [facility] Comment:Suggested therapeuti c range for full dose I.V. unfractionated heparin therapy for venous thromboembolism is 71 to 109 seconds. Blood BLOOD SPECIMEN / Unknown Lab Venipuncture / Unknown 11/15/2022 2:12 AM CDT 11/15/2022 3:08 AM CDT Good Antunez MD LAB - COAGULATION OR DERABLES Performing Organization Address [facility] Co de Phone Number [address] [address], [facility] [phone] * PT-INR [facility] (11/15/2022 2:12 AM CDT) PT 14.3 12.1 - 14.8 Seconds 11/15/2022 3:34 AM CDT [facility] INR 1.1 See Comment 11/15/2022 3:34 AM CDT [facility] Comment:The suggested therap eutic range for standard coumadin (warfarin) therapy is an INR of 2.0-3.0. For high-risk patients (Mechanical Mitral Valve Prosthesis, etc.), the suggested prophylactic therapeutic range is an INR of 2.5-3.5. Blood BLOOD SPECIMEN / Unknown Lab Venipuncture / Unknown 11/15/2022 2:12 AM CDT 11/15/2022 3:08 AM CDT Emir Vail MD LAB - COAGULATION OR DERABLES [facility] [address] [place] [address], [facility] [phone] * US ABDOMEN LTD W COMP DOPPLER (11/14/2022 9:24 AM CDT) Anatomical Region Laterality Modality Abdomen Ultrasound 11/14/2022 9:18 AM CDT Impressions 11/14/2022 9:54 AM CDT IMPRESSION: 1.No discrete hepatic lesion or intrahepatic biliary ductal dilatation. 2.Patent hepatic vasculature. Borderline low velocity the main portal vein measuring 18 cm/s. 3.Status post cholecystectomy. > Dictated by Miranda Bowen MD (president mortgage company). > Dictated by Miranda Bowen (Advertising Sales Manager) 11/14/2022 9:18 AM IHEATHER MD have personally [...] cholecystectomy. > Dictated by Miranda Bowen MD (president mortgage company). > Dictated by Miranda Bowen (Advertising Sales Manager) 11/14/2022 9:18 AM IHEATHER MD have personally reviewed and interpreted this examination/study. > Interpreting Provider: HEATHER FREGOSO MD on 11/14/2022 9:54 AM Good Antunez MD US ORDERABLES * (ABNORMAL) HEPATIC FUNCTION PANEL (11/14/2022 2:39 AM CDT) Protein Total 6.5 6.0 - 8.3 g/dL 023 3:57 AM [facility] Albumin 2.4(L) 3.4 - 5.0 g/dL 11/14/2022 3:57 AM [facility] Bilirubin Total 0.3 0.2 - 1.2 mg/dL 07/2022 3:57 AM [facility] Bilirubin Conjugated 0.1 0.1 - 0.5 mg/dL 11/14/2022 3:57 AM [facility] Bilirubin Unconjugated 0.2 Unconjugated Bilirubin is a calculated value: Reference ranges have not been established. mg/dL 11/14/2022 3:57 AM [facility] Alkaline Phosphatase 78 40 - 150 U/L 11/14/2022 3:57 AM [facility] ALT 278(H) 5 - 55 U/L 11/14/2022 3:57 AM [facility] AST 158(H) 5 - 34 U/L 11/14/2022 3:57 AM [facility] Albumin/Globulin Ratio 0.6(L) 1.1 - 2.3 11/14/2022 3:57 AM [facility] Blood BLOOD SPECIMEN / Unknown Lab Venipuncture / Unknown 11/14/2022 2:39 AM CDT 11/14/2022 3:16 AM CDT Good Antunez MD LAB - CHEMISTRY [place] [facility] Organization Address [place]/[facility] de Phone Number [address] [address], [place] [facility] [phone] * PHOSPHORUS BLOOD (11/14/2022 2:39 AM CDT) Pathologist [facility] Phosphorus 3.5 2.9 - 5.1 mg/dL 11/14/2022 3:54 AM [facility] Blood BLOOD SPECIMEN / Unknown Lab Venipuncture / Unknown 11/14/2022 2:39 AM CDT 11/14/2022 3:16 AM CDT Good Antunez MD LAB - CHEMISTRY [place] BLACKMAN [address] [address], [facility] [phone] * MAGNESIUM BLOOD (11/14/2022 2:39 AM CDT) Magnesium 2.0 1.6 - 2.6 mg/dL 11/14/2022 3:54 AM T [facility] Blood BLOOD SPECIMEN / Unknown Lab Venipuncture / Unknown 11/14/2022 2:39 AM CDT 11/14/2022 3:16 AM CDT Good Antunez MD LAB - CHEMISTRY BIB[place]NA BLACKMAN Performing Organization Address City/[facility]/ZIP Co de Phone Number [address] [address], [facility] [phone] * (ABNORMAL) BASIC METABOLIC PANEL (CALCIUM TOTAL) (11/14/2022 2:39 AM CDT) BUN 11 7 - 26 mg/dL 11/14/2022 3:54 AM [facility] Creatinine 0.51(L) 0.56 - 0.96 mg/dL 11/14/2022 3:54 AM [facility] Sodium 140 136 - 145 mmol/L 11/14/2022 3:54 AM [facility] Potassium 3.9 3.5 - 4.5 mmol/L 11/14/2022 3:54 AM [facility] Chloride 104 98 - 107 mmol/L 11/14/2022 3:54 AM [facility] CO2 25 22 - 29 mmol/L 11/14/2022 3:54 AM [facility] Glucose 109 70 - 115 mg/dL 11/14/2022 3:54 AM [facility] Calcium 8.6 8.4 - 10.2 mg/dL 11/14/2022 3:54 AM [facility] Anion Gap 15 8 - 18 11/14/2022 3:54 AM [facility] BUN/Creatinine Ratio 22 7 - 23 11/14/2022 3:54 AM [facility] Osmolality Calculated 290 270 - 300 mOsm/kg 11/14/2022 3:54 AM [facility] eGFR by CKD-EPI >90 >=90 mL/min/1.7 3 m2 11/14/2022 3:54 AM [facility] Blood BLOOD SPECIMEN / Unknown Lab Venipuncture / Unknown 11/14/2022 2:39 AM CDT 11/14/2022 3:16 AM CDT Good Antunez MD LAB - CHEMISTRY B[place]NA BLACKMAN [facility] Organization Address City/State/ZIP Co de Phone Number [facility] [address] [place] [address], [facility] [phone] * (ABNORMAL) CBC W AUTO DIFFERENTIAL (11/14/2022 2:39 AM CDT) WBC 4.7 3.5 - 10.5 10? 3 /uL 11/14/2022 3:43 AM [facility] RBC 3.47(L) 3.80 - 5.20 10? 6 /uL 11/14/2022 3:43 AM [facility] Hemoglobin 9.9(L) 12.0 - 15.6 g/dL 11/14/2022 3:43 AM [facility] Hematocrit 32.8(L) 35.0 - 45.0 % 11/14/2022 3:43 AM [facility] MCV 94.5 80.7 - 98.3 fL 11/14/2022 3:43 AM [facility] MCH 28.5 26.7 - 34.0 pg 11/14/2022 3:43 AM [facility] MCHC 30.2(L) 30.8 - 35.9 g/dL 11/14/2022 3:43 AM [facility] RDW-SD 51.5(H) 36.0 - 50.0 fL 11/14/2022 3:43 AM [facility] RDW-CV 15.0(H) 11.2 - 14.8 % 11/14/2022 3:43 AM [facility] Platelet Count 364 150 - 400 10? 3 /uL 11/14/2022 3:43 AM [facility] MPV 11.2 9.4 - 12.9 fL 11/14/2022 3:43 AM [facility] nRBC Absolute 0.00 0 10? 3 /uL 11/14/2022 3:43 AM [facility] nRBC Auto 0.0 0 /100 WBC 11/14/2022 3:43 AM [facility] Neutrophils % 32.3(L) 35.0 - 70.0 % 11/14/2022 3:43 AM [facility] Lymphocytes % 41.5 20.0 - 43.0 % 11/14/2022 3:43 AM [facility] Monocytes % 10.5 5.0 - 13.0 % 11/14/2022 3:43 AM [facility] Eosinophils % 13.8(H) 0.0 - 6.0 % 11/14/2022 3:43 AM [facility] Basophil % 0.6 0.0 - 2.0 % 11/14/2022 3:43 AM [facility] Neutrophils Absolute 1.50(L) 1.60 - 7.00 10? 3 /uL 11/14/2022 3:43 AM [facility] Lymphocyte Absolute 1.93 1.10 - 3.90 10? 3 /uL 11/14/2022 3:43 AM [facility] Monocytes Absolute 0.49 0.26 - 1.07 10? 3 /uL 11/14/2022 3:43 AM [facility] Eosinophils Absolute 0.64(H) 0.00 - 0.47 10? 3 /uL 11/14/2022 3:43 AM [facility] Basophils Absolute 0.03 0.00 - 0.08 10? 3 /uL 11/14/2022 3:43 AM [facility] Immature Granulocytes % 1.3(H) 0.0 - 1.0 % 11/14/2022 3:43 AM [facility] Immature Granulocytes Absolute 0.06 11/14/2022 3:43 AM [facility] Blood BLOOD SPECIMEN / Unknown Lab Venipuncture / Unknown 11/14/2022 2:39 AM CDT 11/14/2022 3:19 AM CDT Good Antunez MD LAB - HEMATOLOGY ORD ERABLES Performing Organization Address [facility]/ZIP Co de Phone Number [address] [address], [facility] [phone] * (ABNORMAL) PTT [facility] (11/14/2022 2:39 AM CDT) APTT 45.9(H) 23.0 - 38.4 Seconds 11/14/2022 3:39 AM CDT [facility] Comment:Suggested therapeuti c range for full dose I.V. unfractionated heparin therapy for venous thromboembolism is 71 to 109 seconds. Blood BLOOD SPECIMEN / Unknown Lab Venipuncture / Unknown 11/14/2022 2:39 AM CDT 11/14/2022 3:12 AM CDT Good Antunez MD LAB - COAGULATION OR DERABLES Performing Organization Address [facility]/ZIP Co de Phone Number [address] [address], [facility] [phone] * (ABNORMAL) PT-INR [facility] (11/14/2022 2:39 AM CDT) PT 15.9(H) 12.1 - 14.8 Seconds 11/14/2022 3:39 AM CDT [facility] INR 1.3 See Comment 11/14/2022 3:39 AM CDT [facility] Comment:The suggested therap eutic range for standard coumadin (warfarin) therapy is an INR of 2.0-3.0. For high-risk patients (Mechanical Mitral Valve Prosthesis, etc.), the suggested prophylactic therapeutic range is an INR of 2.5-3.5. Blood BLOOD SPECIMEN / Unknown Lab Venipuncture / Unknown 11/14/2022 2:39 AM CDT 11/14/2022 3:12 AM CDT Emir Vail MD LAB - COAGULATION OR DERABLES [facility] [address] [place] [address], [facility] [phone] * PREPARE FFP UNIT(S), 1 Units (11/14/2022 1:17 AM CDT) Unit Description N/A [facility] BLOOD BANK LAB Blood Bank BLOOD SPECIMEN / Unknown 11/10/2022 11:51 PM CDT Good Antunez MD LAB - BLOOD BANK ORD ERABLES Performing Organization Address City/[facility]/ZIP Co de Phone Number [facility] BLOOD BANK LAB [facility] [place] [address], [facility] [phone] * PREPARE (CROSSMATCH) RBC UNIT(S), 2 Units (11/14/2022 1:17 AM CDT) Unit Description AS1 LR PRBC [facility] BLOOD BANK LAB Unit ABO B [facility] BLOOD BANK LAB Unit Rh POS [facility] BLOOD BANK LAB Product Number R02 [facility] B LOOD BANK LAB Unit Donor # [id number] [facility] BLOOD BANK LAB Unit Status released [facility] BLOO D BANK LAB Product Code [id number] [facility] BLO OD BANK LAB Blood Type Barcode 7300 [facility] BLOOD BANK LAB Expiration Date S BLOOD BANK LAB Unit Description AS1 LR PRBC [facility] BLOOD BANK LAB Unit ABO B [facility] BLOOD [facility]ANK LAB Unit Rh POS [facility] BLOOD BANK LAB Product Number R02 [facility] B LOOD [facility]ANK LAB Unit Donor # [id number] [facility] BLOOD BANK LAB Unit Status released [facility] BLOO D BANK LAB Product Code [id number] [facility] BLO OD BANK LAB Blood Type Barcode 7300 [facility] BLOOD BANK LAB Expiration Date S BLOOD BANK LAB Blood Bank BLOOD SPECIMEN / Unknown 11/10/2022 11:51 PM CDT Good Antunez MD LAB - BLOOD BANK ORD ERABLES [facility] BLOOD BANK LAB [address] [place] [address], [facility] [phone] * CYTOMEGALOVIRUS (CMV) QUANTITATIVE PLASMA (11/13/2022 3:34 PM CDT) CMV Quant by PCR, Interp Not detected Not detected 11/14/2022 12:40 PM CDT [facility] Blood BLOOD SPECIMEN / Unknown Lab Venipuncture / Unknown 11/13/2022 3:34 PM CDT 11/13/2022 3:53 PM CDT Narrative [facility] - 11/14/2022 12:40 PM CDT [...] Antunez MD LAB - CHEMISTRY [place] BLACKMAN [facility] [address] [place] [address], [facility] [phone] * MARY JO-HERBERT VIRUS QUANT BLOOD STL (11/13/2022 3:34 PM CDT) EBV Quant by PCR, Interp Not detected Not detected 11/14/2022 1:40 PM CDT [facility] Specimen Type Plasma 11/14/2022 1:40 PM CDT [facility] Blood BLOOD SPECIMEN / Unknown Lab Venipuncture / Unknown 11/13/2022 3:34 PM CDT 11/13/2022 3:53 PM CDT Narrative [facility] - 11/14/2022 1:40 PM CDT [...] developed and its performance characteristics determined by [facility]. ??It has not been cleared or [...] - CHEMISTRY BIB[place]NA BLACKMAN Performing Organization Address City/[facility]/ZIP Co de Phone Number [facility] [address] [place] [phone] * CK BLOOD (11/13/2022 3:34 PM CDT) Pathologist [facility] CK Total 57 30 - 200 U/L 11/13/2022 4:17 PM CDT [facility] Blood BLOOD SPECIMEN / Unknown Lab Venipuncture / Unknown 11/13/2022 3:34 PM CDT 11/13/2022 3:52 PM CDT Good Antunez MD LAB - CHEMISTRY B[place]NA BLACKMAN [facility] [address] [place] [address], [facility] [phone] * (ABNORMAL) GLUCOSE - POINT OF CARE (11/13/2022 4:14 AM CDT) [facility] Glucose WB/POC 120(H) 70 - 115 mg/dL 11/13/2022 4:27 AM CDT [facility] Specimen Type Cap Fingerstick 2022 4:27 AM CDT [facility] Blood BLOOD SPECIMEN / Unknown 11/13/2022 4:14 AM CDT 11/13/2022 4:27 AM CDT Good Antunez MD LAB - POINT OF CARE ORDERABLES Performing Organization Address [facility]/ZIP Co de Phone Number [address] [address], [facility] [phone] * T4 FREE (11/13/2022 2:10 AM CDT) [facility] T4 Free 1.1 0.7 - 1.5 ng/dL 11/13/2022 4:05 AM CDT [facility] Blood BLOOD SPECIMEN / Unknown Lab Venipuncture / Unknown 11/13/2022 2:10 AM CDT 11/13/2022 2:44 AM CDT Good Antunez MD LAB - CHEMISTRY ORDE RABLES [address] [address], [facility] [phone] * (ABNORMAL) HEPATIC FUNCTION PANEL (11/13/2022 2:10 AM CDT) [facility] Protein Total 6.5 6.0 - 8.3 g/dL 023 3:16 AM CDT [facility] Albumin 2.4(L) 3.4 - 5.0 g/dL 11/13/2022 3:16 AM CDT [facility] Bilirubin Total 0.3 0.2 - 1.2 mg/dL 06/2022 3:16 AM [facility] Bilirubin Conjugated 0.1 0.1 - 0.5 mg/dL 11/13/2022 3:16 AM [facility] Bilirubin Unconjugated 0.2 Unconjugated Bilirubin is a calculated value: Reference ranges have not been established. mg/dL 11/13/2022 3:16 AM [facility] Alkaline Phosphatase 77 40 - 150 U/L 11/13/2022 3:16 AM [facility] ALT 286(H) 5 - 55 U/L 11/13/2022 3:16 AM [facility] AST 195(H) 5 - 34 U/L 11/13/2022 3:16 AM [facility] Albumin/Globulin Ratio 0.6(L) 1.1 - 2.3 11/13/2022 3:16 AM [facility] Blood BLOOD SPECIMEN / Unknown Lab Venipuncture / Unknown 11/13/2022 2:10 AM CDT 11/13/2022 2:44 AM CDT Good Antunez MD LAB - CHEMISTRY [place] BLACKMAN [address] [address], [facility] [phone] * PHOSPHORUS BLOOD (11/13/2022 2:10 AM CDT) Phosphorus 3.9 2.9 - 5.1 mg/dL 11/13/2022 3:16 AM CDT [facility] Blood BLOOD SPECIMEN / Unknown Lab Venipuncture / Unknown 11/13/2022 2:10 AM CDT 11/13/2022 2:44 AM CDT Good Antunez MD LAB - CHEMISTRY B[place]NA BLACKMAN [address] [address], [place] [phone] * MAGNESIUM BLOOD (11/13/2022 2:10 AM CDT) Magnesium 2.2 1.6 - 2.6 mg/dL 11/13/2022 3:14 AM [facility] Blood BLOOD SPECIMEN / Unknown Lab Venipuncture / Unknown 11/13/2022 2:10 AM CDT 11/13/2022 2:44 AM CDT Good Antunez MD LAB - CHEMISTRY B[place]NA BLACKMAN [facility] Organization Address City/[facility]/ZIP Co de Phone Number [facility] [address] [place] [address], [facility] [phone] * (ABNORMAL) BASIC METABOLIC PANEL (CALCIUM TOTAL) (11/13/2022 2:10 AM CDT) Pathologist [facility] BUN 11 7 - 26 mg/dL 11/13/2022 3:14 AM [facility] Creatinine 0.54(L) 0.56 - 0.96 mg/dL 11/13/2022 3:14 AM [facility] Sodium 138 136 - 145 mmol/L 11/13/2022 3:14 AM [facility] Potassium 3.9 3.5 - 4.5 mmol/L 11/13/2022 3:14 AM [facility] Chloride 107 98 - 107 mmol/L 11/13/2022 3:14 AM [facility] CO2 23 22 - 29 mmol/L 11/13/2022 3:14 AM [facility] Glucose 105 70 - 115 mg/dL 11/13/2022 3:14 AM [facility] Calcium 8.1(L) 8.4 - 10.2 mg/dL 11/13/2022 3:14 AM [facility] Anion Gap 12 8 - 18 11/13/2022 3:14 AM [facility] BUN/Creatinine Ratio 20 7 - 23 11/13/2022 3:14 AM [facility] Osmolality Calculated 286 270 - 300 mOsm/kg 11/13/2022 3:14 AM [facility] eGFR by CKD-EPI >90 >=90 mL/min/1.7 3 m2 11/13/2022 3:14 AM [facility] Blood BLOOD SPECIMEN / Unknown Lab Venipuncture / Unknown 11/13/2022 2:10 AM CDT 11/13/2022 2:44 AM CDT Good Antunez MD LAB - CHEMISTRY B[place]NA BLACKMAN [facility] Organization Address City/State/ZIP Co de Phone Number [facility] [address] [place] [address], [facility] [phone] * (ABNORMAL) CBC W AUTO DIFFERENTIAL (11/13/2022 2:10 AM CDT) WBC 2.7(L) 3.5 - 10.5 10? 3 /uL 11/13/2022 3:11 AM CDT [facility] RBC 3.36(L) 3.80 - 5.20 10? 6 /uL 11/13/2022 3:11 AM [facility] Hemoglobin 9.8(L) 12.0 - 15.6 g/dL 11/13/2022 3:11 AM [facility] Hematocrit 30.8(L) 35.0 - 45.0 % 11/13/2022 3:11 AM [facility] MCV 91.7 80.7 - 98.3 fL 11/13/2022 3:11 AM [facility] MCH 29.2 26.7 - 34.0 pg 11/13/2022 3:11 AM [facility] MCHC 31.8 30.8 - 35.9 g/dL 11/13/2022 3:11 AM [facility] RDW-SD 49.2 36.0 - 50.0 fL 11/13/2022 3:11 AM [facility] RDW-CV 14.9(H) 11.2 - 14.8 % 11/13/2022 3:11 AM [facility] Platelet Count 334 150 - 400 10? 3 /uL 11/13/2022 3:11 AM [facility] MPV 11.0 9.4 - 12.9 fL 11/13/2022 3:11 AM [facility] nRBC Absolute 0.00 0 10? 3 /uL 11/13/2022 3:11 AM [facility] nRBC Auto 0.0 0 /100 WBC 11/13/2022 3:11 AM [facility] Neutrophils % 28.1(L) 35.0 - 70.0 % 11/13/2022 3:11 AM [facility] Lymphocytes % 45.3(H) 20.0 - 43.0 % 11/13/2022 3:11 AM [facility] Monocytes % 14.6(H) 5.0 - 13.0 % 11/13/2022 3:11 AM [facility] Eosinophils % 9.4(H) 0.0 - 6.0 % 11/13/2022 3:11 AM [facility] Basophil % 0.4 0.0 - 2.0 % 11/13/2022 3:11 AM [facility] Neutrophils Absolute 0.75(L) 1.60 - 7.00 10? 3 /uL 11/13/2022 3:11 AM [facility] Lymphocyte Absolute 1.21 1.10 - 3.90 10? 3 /uL 11/13/2022 3:11 AM [facility] Monocytes Absolute 0.39 0.26 - 1.07 10? 3 /uL 11/13/2022 3:11 AM [facility] Eosinophils Absolute 0.25 0.00 - 0.47 10? 3 /uL 11/13/2022 3:11 AM [facility] Basophils Absolute 0.01 0.00 - 0.08 10? 3 /uL 11/13/2022 3:11 AM [facility] Immature Granulocytes % 2.2(H) 0.0 - 1.0 % 11/13/2022 3:11 AM [facility] Immature Granulocytes Absolute 0.06 11/13/2022 3:11 AM [facility] Blood BLOOD SPECIMEN / Unknown Lab Venipuncture / Unknown 11/13/2022 2:10 AM CDT 11/13/2022 2:44 AM CDT Good Antunez MD LAB - HEMATOLOGY ORD ERABLES [address] [place] [address], [facility] [phone] * (ABNORMAL) PTT [facility] (11/13/2022 2:10 AM CDT) APTT 47.9(H) 23.0 - 38.4 Seconds 11/13/2022 2:56 AM CDT [facility] Comment:Suggested therapeuti c range for full dose I.V. unfractionated heparin therapy for venous thromboembolism is 71 to 109 seconds. Blood BLOOD SPECIMEN / Unknown Lab Venipuncture / Unknown 11/13/2022 2:10 AM CDT 11/13/2022 2:39 AM CDT Good Antunez MD LAB - COAGULATION OR DERABLES Performing Organization Address [facility] Co de Phone Number [address] [address], [facility] [phone] * (ABNORMAL) PT-INR [facility] (11/13/2022 2:10 AM CDT) PT 17.7(H) 12.1 - 14.8 Seconds 11/13/2022 2:56 AM CDT [facility] INR 1.5 See Comment 11/13/2022 2:56 AM CDT [facility] Comment:The suggested therap eutic range for standard coumadin (warfarin) therapy is an INR of 2.0-3.0. For high-risk patients (Mechanical Mitral Valve Prosthesis, etc.), the suggested prophylactic therapeutic range is an INR of 2.5-3.5. Blood BLOOD SPECIMEN / Unknown Lab Venipuncture / Unknown 11/13/2022 2:10 AM CDT 11/13/2022 2:39 AM CDT Emir Vail MD LAB - COAGULATION OR DERABLES [address] [address], [facility] [phone] * (ABNORMAL) TSH REFLEX FREE T4 (11/13/2022 2:10 AM CDT) Pathologist [facility] TSH 5.706(H) 0.350 - 4.940 uIU/mL 11/13/2022 3:33 AM CDT [facility] Blood BLOOD SPECIMEN / Unknown Lab Venipuncture / Unknown 11/13/2022 2:10 AM CDT 11/13/2022 2:44 AM CDT Good Antunez MD LAB - CHEMISTRY ORDE HIRAL Performing Organization Address City/[facility]/ZIP Co de Phone Number [address] [address], [place] [phone] * GLUCOSE - POINT OF CARE (11/12/2022 11:52 PM CDT) Pathologist [facility] Glucose WB/POC 111 70 - 115 mg/dL 11/13/2022 12:06 AM CDT [facility] Specimen Type Cap Fingerstick 2022 12:06 AM CDT [facility] Blood BLOOD SPECIMEN / Unknown 11/12/2022 11:52 PM CDT 11/13/2022 12:06 AM CDT Good Antunez MD LAB - POINT OF CARE ORDERABLES Performing Organization Address City/[facility]/ZIP Co de Phone Number [address] [address], [place] [phone] * XR CHEST 1VW PORTABLE (11/12/2022 8:44 PM CDT) Anatomical Region Laterality Modality Chest Radiographic Irene ging 11/13/2022 10:4 6 AM CDT Narrative 11/13/2022 11:59 AM CDT PROCEDURE: ??XR CHEST 1VW PORTABLE, DATE/TIME OF EXAM: ??11/12/2022 8:45 PM, LOCATION ??[facility] INDICATION: R50.9: Fever, unspecified fever cause ADDITIONAL [...] abnormality. Report dictated by Agnes Olmos DO (president mortgage [employer]). Pepe Ornelas MD have personally reviewed and interpreted this examination/study. > Interpreting Provider: Pepe Gonzalez MD on 11/13/2022 11:59 AM Procedure Note Pepe Gonzalez MD - 11/13/2022 PROCEDURE: XR CHEST 1VW PORTABLE, DATE/TIME OF EXAM: 11/12/2022 8:45 PM, LOCATION [facility] INDICATION: R50.9: Fever, unspecified fever cause ADDITIONAL [...] abnormality. Report dictated by Agnes Olmos DO (president mortgage [employer]). Pepe Ornelas MD have personally reviewed and interpreted this examination/study. > Interpreting Provider: Pepe Gonzalez MD on 11/13/2022 11:59 AM Good Antunez MD DIAGNOSTIC IMAGING O RDERABLES * (ABNORMAL) GLUCOSE - POINT OF CARE (11/12/2022 7:40 PM CDT) Glucose WB/POC 117(H) 70 - 115 mg/dL 11/12/2022 7:43 PM CDT [facility] Specimen Type Cap Fingerstick 2022 7:43 PM CDT [facility] Blood BLOOD SPECIMEN / Unknown 11/12/2022 7:40 PM CDT 11/12/2022 7:43 PM CDT Good Antunez MD LAB - POINT OF CARE ORDERABLES [facility] [address] [place] [address], [place] [phone] * (ABNORMAL) PTT [facility] (11/12/2022 5:32 AM CDT) APTT 102.7(HH) 23.0 - 38.4 Seconds 11/12/2022 6:42 AM CDT [facility] Comment:Suggested therapeuti c range for full dose I.V. unfractionated heparin therapy for venous thromboembolism is 71 to 109 seconds. Blood BLOOD SPECIMEN / Unknown Lab Venipuncture / Unknown 11/12/2022 5:32 AM CDT 11/12/2022 6:08 AM CDT Good Antunez MD LAB - COAGULATION OR DERABLES [address] [address], [facility] [phone] * (ABNORMAL) PHOSPHORUS BLOOD (11/12/2022 5:32 AM CDT) Phosphorus 2.5(L) 2.9 - 5.1 mg/dL 11/12/2022 6:45 AM CDT [facility] Blood BLOOD SPECIMEN / Unknown Lab Venipuncture / Unknown 11/12/2022 5:32 AM CDT 11/12/2022 6:16 AM CDT Good Antunez MD LAB - CHEMISTRY ORDE RABLES [address] [address], [facility] [phone] * MAGNESIUM BLOOD (11/12/2022 5:32 AM CDT) Magnesium 1.7 1.6 - 2.6 mg/dL 11/12/2022 6:45 AM CDT [facility] Blood BLOOD SPECIMEN / Unknown Lab Venipuncture / Unknown 11/12/2022 5:32 AM CDT 11/12/2022 6:16 AM CDT Good Antunez MD LAB - CHEMISTRY BIBIANA BLACKMAN Performing Organization Address [facility]/ZIP Co de Phone Number [facility] [address] [place] [address], [facility] [phone] * (ABNORMAL) BASIC METABOLIC PANEL (CALCIUM TOTAL) (11/12/2022 5:32 AM CDT) BUN 13 7 - 26 mg/dL 11/12/2022 6:45 AM [facility] Creatinine 0.59 0.56 - 0.96 mg/dL 11/12/2022 6:45 AM [facility] Sodium 136 136 - 145 mmol/L 11/12/2022 6:45 AM [facility] Potassium 3.3(L) 3.5 - 4.5 mmol/L 11/12/2022 6:45 AM [facility] Chloride 105 98 - 107 mmol/L 11/12/2022 6:45 AM [facility] CO2 21(L) 22 - 29 mmol/L 11/12/2022 6:45 AM [facility] Glucose 120(H) 70 - 115 mg/dL 11/12/2022 6:45 AM [facility] Calcium 7.8(L) 8.4 - 10.2 mg/dL 11/12/2022 6:45 AM [facility] Anion Gap 13 8 - 18 11/12/2022 6:45 AM [facility] BUN/Creatinine Ratio 22 7 - 23 11/12/2022 6:45 AM [facility] Osmolality Calculated 283 270 - 300 mOsm/kg 11/12/2022 6:45 AM [facility] eGFR by CKD-EPI >90 >=90 mL/min/1.7 3 m2 11/12/2022 6:45 AM [facility] Blood BLOOD SPECIMEN / Unknown Lab Venipuncture / Unknown 11/12/2022 5:32 AM CDT 11/12/2022 6:16 AM T Good Antunez MD LAB - CHEMISTRY [facility] [address] [id number] [phone] * (ABNORMAL) CBC W AUTO DIFFERENTIAL (11/12/2022 5:32 AM T) WBC 4.8 3.5 - 10.5 10? 3 /uL 11/12/2022 6:27 AM [facility] RBC 3.27(L) 3.80 - 5.20 10? 6 /uL 11/12/2022 6:27 AM [facility] Hemoglobin 9.4(L) 12.0 - 15.6 g/dL 11/12/2022 6:27 AM [facility] Hematocrit 30.2(L) 35.0 - 45.0 % 11/12/2022 6:27 AM [facility] MCV 92.4 80.7 - 98.3 fL 11/12/2022 6:27 AM [facility] MCH 28.7 26.7 - 34.0 pg 11/12/2022 6:27 AM [facility] MCHC 31.1 30.8 - 35.9 g/dL 11/12/2022 6:27 AM [facility] RDW-SD 48.6 36.0 - 50.0 fL 11/12/2022 6:27 AM [facility] RDW-CV 14.6 11.2 - 14.8 % 11/12/2022 6:27 AM [facility] Platelet Count 333 150 - 400 10? 3 /uL 11/12/2022 6:27 AM [facility] MPV 11.1 9.4 - 12.9 fL 11/12/2022 6:27 AM [facility] nRBC Absolute 0.00 0 10? 3 /uL 11/12/2022 6:27 AM [facility] nRBC Auto 0.0 0 /100 WBC 11/12/2022 6:27 AM [facility] Neutrophils % 70.4(H) 35.0 - 70.0 % 11/12/2022 6:27 AM [facility] Lymphocytes % 17.7(L) 20.0 - 43.0 % 11/12/2022 6:27 AM [facility] Monocytes % 4.6(L) 5.0 - 13.0 % 11/12/2022 6:27 AM [facility] Eosinophils % 6.1(H) 0.0 - 6.0 % 11/12/2022 6:27 AM [facility] Basophil % 0.2 0.0 - 2.0 % 11/12/2022 6:27 AM [facility] Neutrophils Absolute 3.37 1.60 - 7.00 10? 3 /uL 11/12/2022 6:27 AM [facility] Lymphocyte Absolute 0.85(L) 1.10 - 3.90 10? 3 /uL 11/12/2022 6:27 AM [facility] Monocytes Absolute 0.22(L) 0.26 - 1.07 10? 3 /uL 11/12/2022 6:27 AM [facility] Eosinophils Absolute 0.29 0.00 - 0.47 10? 3 /uL 11/12/2022 6:27 AM [facility] Basophils Absolute 0.01 0.00 - 0.08 10? 3 /uL 11/12/2022 6:27 AM [facility] Immature Granulocytes % 1.0 0.0 - 1.0 % 11/12/2022 6:27 AM [facility] Immature Granulocytes Absolute 0.05 11/12/2022 6:27 AM [facility] Blood BLOOD SPECIMEN / Unknown Lab Venipuncture / Unknown 11/12/2022 5:32 AM CDT 11/12/2022 6:15 AM CDT Good Antunez MD LAB - HEMATOLOGY ORD ERABLES [facility] [address] [place] [id number], [facility] [phone] * (ABNORMAL) PT-INR [facility] (11/12/2022 5:32 AM CDT) PT 22.1(H) 12.1 - 14.8 Seconds 11/12/2022 6:42 AM [facility] INR 2.0 See Comment 11/12/2022 6:42 AM [facility] Comment:The suggested therap eutic range for standard coumadin (warfarin) therapy is an INR of 2.0-3.0. For high-risk patients (Mechanical Mitral Valve Prosthesis, etc.), the suggested prophylactic therapeutic range is an INR of 2.5-3.5. Blood BLOOD SPECIMEN / Unknown Lab Venipuncture / Unknown 11/12/2022 5:32 AM CDT 11/12/2022 6:08 AM CDT Emir Vail MD LAB - COAGULATION OR DERABLES [facility] [address] [place] [address], [facility] [phone] * (ABNORMAL) HEPATIC FUNCTION PANEL (11/12/2022 5:32 AM CDT) Protein Total 6.5 6.0 - 8.3 g/dL 023 6:53 AM [facility] Albumin 2.5(L) 3.4 - 5.0 g/dL 11/12/2022 6:53 AM [facility] Bilirubin Total 0.3 0.2 - 1.2 mg/dL 05/2022 6:53 AM [facility] Bilirubin Conjugated 0.2 0.1 - 0.5 mg/dL 11/12/2022 6:53 AM [facility] Bilirubin Unconjugated 0.1 Unconjugated Bilirubin is a calculated value: Reference ranges have not been established. mg/dL 11/12/2022 6:53 AM [facility] Alkaline Phosphatase 75 40 - 150 U/L 11/12/2022 6:53 AM [facility] ALT 266(H) 5 - 55 U/L 11/12/2022 6:53 AM [facility] AST 220(H) 5 - 34 U/L 11/12/2022 6:53 AM [facility] Albumin/Globulin Ratio 0.6(L) 1.1 - 2.3 11/12/2022 6:53 AM [facility] Blood BLOOD SPECIMEN / Unknown Lab Venipuncture / Unknown 11/12/2022 5:32 AM CDT 11/12/2022 6:16 AM CDT Good Antunez MD LAB - CHEMISTRY BIBIANA BLACKMAN Performing Organization Address City/[facility]/ZIP Co de Phone Number [facility] [address] [place] [address], [place] [phone] * CULTURE BLOOD (11/12/2022 5:32 AM CDT) Culture No growth day 5 ROSELIA 11/17/2022 10:01 AM CDT [facility] Blood PERIPHERAL BLOOD / Unknown Lab Venipuncture / Unknown 11/12/2022 5:32 AM CDT 11/12/2022 6:09 AM CDT Good Antunez MD LAB - MICROBIOLOGY O RDERABLES Performing Organization Address City/[facility]/ZIP Co de Phone Number [facility] [address] [place] [address], [facility] [phone] * (ABNORMAL) GLUCOSE - POINT OF CARE (11/12/2022 3:44 AM CDT) Glucose WB/POC 128(H) 70 - 115 mg/dL 11/12/2022 3:49 AM CDT [facility] Specimen Type Cap Fingerstick 2022 3:49 AM CDT [facility] Blood BLOOD SPECIMEN / Unknown 11/12/2022 3:44 AM CDT 11/12/2022 3:49 AM CDT Good Antunez MD LAB - POINT OF CARE ORDERABLES Performing Organization Address City/[facility]/ZIP Co de Phone Number [facility] [address] [place] [address], [place] [phone] * (ABNORMAL) PTT [facility] (11/11/2022 11:51 PM CDT) APTT 78.8(H) 23.0 - 38.4 Seconds 11/12/2022 12:49 AM CDT [facility] Comment:Suggested therapeuti c range for full dose I.V. unfractionated heparin therapy for venous thromboembolism is 71 to 109 seconds. Blood BLOOD SPECIMEN / Unknown Venipuncture / Unknown 11/11/2022 11:51 PM CDT 11/11/2022 11:59 PM CDT Good Antunez MD LAB - COAGULATION OR DERABLES Performing Organization Address City/[facility]/ZIP Co de Phone Number [address] [address], [place] [phone] * (ABNORMAL) GLUCOSE - POINT OF CARE (11/11/2022 11:33 PM CDT) Glucose WB/POC 129(H) 70 - 115 mg/dL 11/11/2022 11:38 PM CDT [facility] Specimen Type Cap Fingerstick 2022 11:38 PM CDT [facility] Blood BLOOD SPECIMEN / Unknown 11/11/2022 11:33 PM CDT 11/11/2022 11:38 PM CDT Good Antunez MD LAB - POINT OF CARE ORDERABLES Performing Organization Address [facility] Co de Phone Number [address] [address], [place] [phone] * GLUCOSE - POINT OF CARE (11/11/2022 9:25 PM CDT) Glucose WB/POC 95 70 - 115 mg/dL 11/11/2022 9:30 PM CDT [facility] Specimen Type Cap Fingerstick 2022 9:30 PM CDT [facility] Blood BLOOD SPECIMEN / Unknown 11/11/2022 9:25 PM CDT 11/11/2022 9:30 PM CDT Good Antunez MD LAB - POINT OF CARE ORDERABLES Performing Organization Address City/[facility]/ZIP Co de Phone Number [address] [address], [facility] [phone] * (ABNORMAL) PTT [facility] (11/11/2022 5:03 PM CDT) APTT 140.8(HH) 23.0 - 38.4 Seconds 11/11/2022 5:47 PM CDT [facility] Comment:Suggested therapeuti c range for full dose I.V. unfractionated heparin therapy for venous thromboembolism is 71 to 109 seconds. Blood BLOOD SPECIMEN / Unknown Venipuncture / Unknown 11/11/2022 5:03 PM CDT 11/11/2022 5:08 PM CDT Good Antunez MD LAB - COAGULATION OR DERABLES [address] [address], [facility] [phone] * PHOSPHORUS BLOOD (11/11/2022 5:03 PM CDT) Phosphorus 3.3 2.9 - 5.1 mg/dL 11/11/2022 5:34 PM CDT [facility] Blood BLOOD SPECIMEN / Unknown Venipuncture / Unknown 11/11/2022 5:03 PM CDT 11/11/2022 5:22 PM CDT Good Antunez MD LAB - CHEMISTRY ORDE HIRAL [address] [address], [facility] [phone] * MAGNESIUM BLOOD (11/11/2022 5:03 PM CDT) Magnesium 2.0 1.6 - 2.6 mg/dL 11/11/2022 5:34 PM CDT [facility] Blood BLOOD SPECIMEN / Unknown Venipuncture / Unknown 11/11/2022 5:03 PM CDT 11/11/2022 5:22 PM CDT Good Antunez MD LAB - CHEMISTRY ORDE RABLES [facility] [address] [place] [address], [facility] [phone] * (ABNORMAL) BASIC METABOLIC PANEL (CALCIUM TOTAL) (11/11/2022 5:03 PM CDT) BUN 11 7 - 26 mg/dL 11/11/2022 5:34 PM [facility] Creatinine 0.56 0.56 - 0.96 mg/dL 11/11/2022 5:34 PM [facility] Sodium 140 136 - 145 mmol/L 11/11/2022 5:34 PM [facility] Potassium 3.8 3.5 - 4.5 mmol/L 11/11/2022 5:34 PM [facility] Chloride 108(H) 98 - 107 mmol/L 11/11/2022 5:34 PM [facility] CO2 22 22 - 29 mmol/L 11/11/2022 5:34 PM [facility] Glucose 105 70 - 115 mg/dL 11/11/2022 5:34 PM [facility] Calcium 8.4 8.4 - 10.2 mg/dL 11/11/2022 5:34 PM [facility] Anion Gap 14 8 - 18 11/11/2022 5:34 PM [facility] BUN/Creatinine Ratio 20 7 - 23 11/11/2022 5:34 PM [facility] Osmolality Calculated 290 270 - 300 mOsm/kg 11/11/2022 5:34 PM [facility] eGFR by CKD-EPI >90 >=90 mL/min/1.7 3 m2 11/11/2022 5:34 PM [facility] Blood BLOOD SPECIMEN / Unknown Venipuncture / Unknown 11/11/2022 5:03 PM CDT 11/11/2022 5:22 PM T Good Antunez MD LAB - CHEMISTRY BIBIANA BLACKMAN [facility] [address] [place] [address], [facility] [phone] * (ABNORMAL) CBC W AUTO DIFFERENTIAL (11/11/2022 5:03 PM T) [facility] Signature WBC 5.0 3.5 - 10.5 10? 3 /uL 11/11/2022 5:17 PM [facility] RBC 3.41(L) 3.80 - 5.20 10? 6 /uL 11/11/2022 5:17 PM [facility] Hemoglobin 9.9(L) 12.0 - 15.6 g/dL 11/11/2022 5:17 PM [facility] Hematocrit 31.9(L) 35.0 - 45.0 % 11/11/2022 5:17 PM [facility] MCV 93.5 80.7 - 98.3 fL 11/11/2022 5:17 PM [facility] MCH 29.0 26.7 - 34.0 pg 11/11/2022 5:17 PM [facility] MCHC 31.0 30.8 - 35.9 g/dL 11/11/2022 5:17 PM [facility] RDW-SD 49.3 36.0 - 50.0 fL 11/11/2022 5:17 PM [facility] RDW-CV 14.6 11.2 - 14.8 % 11/11/2022 5:17 PM [facility] Platelet Count 332 150 - 400 10? 3 /uL 11/11/2022 5:17 PM [facility] MPV 10.8 9.4 - 12.9 fL 11/11/2022 5:17 PM [facility] nRBC Absolute 0.00 0 10? 3 /uL 11/11/2022 5:17 PM [facility] nRBC Auto 0.0 0 /100 WBC 11/11/2022 5:17 PM [facility] Neutrophils % 64.9 35.0 - 70.0 % 11/11/2022 5:17 PM [facility] Lymphocytes % 23.3 20.0 - 43.0 % 11/11/2022 5:17 PM [facility] Monocytes % 8.2 5.0 - 13.0 % 11/11/2022 5:17 PM CDT [facility] Eosinophils % 2.0 0.0 - 6.0 % 11/11/2022 5:17 PM CDT [facility] Basophil % 0.4 0.0 - 2.0 % 11/11/2022 5:17 PM CDT [facility] Neutrophils Absolute 3.23 1.60 - 7.00 10? 3 /uL 11/11/2022 5:17 PM CDT [facility] Lymphocyte Absolute 1.16 1.10 - 3.90 10? 3 /uL 11/11/2022 5:17 PM CDT [facility] Monocytes Absolute 0.41 0.26 - 1.07 10? 3 /uL 11/11/2022 5:17 PM CDT [facility] Eosinophils Absolute 0.10 0.00 - 0.47 10? 3 /uL 11/11/2022 5:17 PM CDT [facility] Basophils Absolute 0.02 0.00 - 0.08 10? 3 /uL 11/11/2022 5:17 PM CDT [facility] Immature Granulocytes % 1.2(H) 0.0 - 1.0 % 11/11/2022 5:17 PM CDT [facility] Immature Granulocytes Absolute 0.06 11/11/2022 5:17 PM CDT [facility] Blood BLOOD SPECIMEN / Unknown Venipuncture / Unknown 11/11/2022 5:03 PM CDT 11/11/2022 5:11 PM CDT Good Antunez MD LAB - HEMATOLOGY ORD ERABLES [facility] [address] [place] [address] [phone] * LACTIC ACID BLOOD REFLEX TO REPEAT (11/11/2022 5:03 PM CDT) Lactic Acid-Stat 1.0 <=2.0 mmol/L 11/11/2022 5:35 PM CDT [facility] Blood BLOOD SPECIMEN / Unknown Venipuncture / Unknown 11/11/2022 5:03 PM CDT 11/11/2022 5:09 PM CDT Good Antunez MD LAB - CHEMISTRY BIBIANA ANNEMARIEKAREN Performing Organization Address [facility] Co de Phone Number [address] [address], [facility] [phone] * (ABNORMAL) PTT [facility] (11/11/2022 9:28 AM CDT) APTT 129.8(HH) 23.0 - 38.4 Seconds 11/11/2022 10:30 AM CDT [facility] Comment:Suggested therapeuti c range for full dose I.V. unfractionated heparin therapy for venous thromboembolism is 71 to 109 seconds. Blood BLOOD SPECIMEN / Unknown Venipuncture / Unknown 11/11/2022 9:28 AM CDT 11/11/2022 9:28 AM CDT Good Antunez MD LAB - COAGULATION OR DERABLES Performing Organization Address [facility] de Phone Number [address] [address], [facility] [phone] * (ABNORMAL) PT-INR [facility] (11/11/2022 9:28 AM CDT) PT 16.2(H) 12.1 - 14.8 Seconds 11/11/2022 10:30 AM T [facility] INR 1.3 See Comment 11/11/2022 10:30 AM T [facility] Comment:The suggested therap eutic range for standard coumadin (warfarin) therapy is an INR of 2.0-3.0. For high-risk patients (Mechanical Mitral Valve Prosthesis, etc.), the suggested prophylactic therapeutic range is an INR of 2.5-3.5. Blood BLOOD SPECIMEN / Unknown Venipuncture / Unknown 11/11/2022 9:28 AM CDT 11/11/2022 9:28 AM CDT Emir Vail MD LAB - COAGULATION OR DERABLES Performing Organization Address [facility] Co de Phone Number [address] [place] [address], [place] [phone] * (ABNORMAL) GLUCOSE - POINT OF CARE (11/11/2022 4:48 AM CDT) Glucose WB/POC 148(H) 70 - 115 mg/dL 11/11/2022 8:15 AM CDT [facility] Specimen Type Cap Fingerstick 2022 8:15 AM CDT [facility] Blood BLOOD SPECIMEN / Unknown 11/11/2022 4:48 AM CDT 11/11/2022 8:15 AM CDT Good Antunez MD LAB - POINT OF CARE ORDERABLES [facility] [address] [place] [address], [place] [phone] * (ABNORMAL) GLUCOSE - POINT OF CARE (11/11/2022 12:33 AM CDT) Glucose WB/POC 130(H) 70 - 115 mg/dL 11/11/2022 12:37 AM CDT [facility] Specimen Type Cap Fingerstick 2022 12:37 AM CDT [facility] Blood BLOOD SPECIMEN / Unknown 11/11/2022 12:33 AM CDT 11/11/2022 12:37 AM CDT Good Antunez MD LAB - POINT OF CARE ORDERABLES [facility] [address] [place] [address], [place] [phone] * TYPE + SCREEN PANEL (11/10/2022 11:38 PM CDT) Antibody Screen NEG 12:45 AM CDT [facility] ABO Rh B POS 11/11/2022 12:45 AM CDT [facility] Blood Bank BLOOD SPECIMEN / Unknown Lab Venipuncture / Unknown 11/10/2022 11:38 PM CDT 11/10/2022 11:51 PM CDT Good Antunez MD LAB - BLOOD BANK ORD ERABLES [facility] [address] [place] [address], [facility] [phone] * (ABNORMAL) CBC W AUTO DIFFERENTIAL (11/10/2022 11:38 PM CDT) WBC 7.1 3.5 - 10.5 10? 3 /uL 11/11/2022 1:02 AM [facility] RBC 3.22(L) 3.80 - 5.20 10? 6 /uL 11/11/2022 1:02 AM [facility] Hemoglobin 9.5(L) 12.0 - 15.6 g/dL 11/11/2022 1:02 AM [facility] Hematocrit 29.7(L) 35.0 - 45.0 % 11/11/2022 1:02 AM [facility] MCV 92.2 80.7 - 98.3 fL 11/11/2022 1:02 AM [facility] MCH 29.5 26.7 - 34.0 pg 11/11/2022 1:02 AM [facility] MCHC 32.0 30.8 - 35.9 g/dL 11/11/2022 1:02 AM [facility] RDW-SD 48.4 36.0 - 50.0 fL 11/11/2022 1:02 AM [facility] RDW-CV 14.5 11.2 - 14.8 % 11/11/2022 1:02 AM [facility] Platelet Count 297 150 - 400 10? 3 /uL 11/11/2022 1:02 AM [facility] MPV 11.1 9.4 - 12.9 fL 11/11/2022 1:02 AM [facility] nRBC Absolute 0.00 0 10? 3 /uL 11/11/2022 1:02 AM [facility] nRBC Auto 0.0 0 /100 WBC 11/11/2022 1:02 AM [facility] Neutrophils % 85.3(H) 35.0 - 70.0 % 11/11/2022 1:02 AM [facility] Lymphocytes % 10.1(L) 20.0 - 43.0 % 11/11/2022 1:02 AM [facility] Monocytes % 3.0(L) 5.0 - 13.0 % 11/11/2022 1:02 AM [facility] Eosinophils % 0.1 0.0 - 6.0 % 11/11/2022 1:02 AM [facility] Basophil % 0.1 0.0 - 2.0 % 11/11/2022 1:02 AM [facility] Neutrophils Absolute 6.01 1.60 - 7.00 10? 3 /uL 11/11/2022 1:02 AM [facility] Lymphocyte Absolute 0.71(L) 1.10 - 3.90 10? 3 /uL 11/11/2022 1:02 AM [facility] Monocytes Absolute 0.21(L) 0.26 - 1.07 10? 3 /uL 11/11/2022 1:02 AM [facility] Eosinophils Absolute 0.01 0.00 - 0.47 10? 3 /uL 11/11/2022 1:02 AM [facility] Basophils Absolute 0.01 0.00 - 0.08 10? 3 /uL 11/11/2022 1:02 AM [facility] Immature Granulocytes % 1.4(H) 0.0 - 1.0 % 11/11/2022 1:02 AM [facility] Immature Granulocytes Absolute 0.10 11/11/2022 1:02 AM [facility] Blood BLOOD SPECIMEN / Unknown Lab Venipuncture / Unknown 11/10/2022 11:38 PM CDT 11/10/2022 11:50 PM CDT Good Antunez MD LAB - HEMATOLOGY ORD ERABLES [facility] [address] [place] [address], [facility] [phone] * PTT [facility] (11/10/2022 11:38 PM CDT) APTT 36.3 23.0 - 38.4 Seconds 11/11/2022 12:07 AM T [facility] Comment:Suggested therapeuti c range for full dose I.V. unfractionated heparin therapy for venous thromboembolism is 71 to 109 seconds. Blood BLOOD SPECIMEN / Unknown Lab Venipuncture / Unknown 11/10/2022 11:38 PM CDT 11/10/2022 11:56 PM CDT Good Antunez MD LAB - COAGULATION OR DERABLES [facility] [address] [place] [address], [facility] [phone] * (ABNORMAL) PT-INR [facility] (11/10/2022 11:38 PM CDT) [facility] PT 15.6(H) 12.1 - 14.8 Seconds 11/11/2022 12:07 AM [facility] INR 1.3 See Comment 11/11/2022 12:07 AM T [facility] Comment:The suggested therap eutic range for standard coumadin (warfarin) therapy is an INR of 2.0-3.0. For high-risk patients (Mechanical Mitral Valve Prosthesis, etc.), the suggested prophylactic therapeutic range is an INR of 2.5-3.5. Blood BLOOD SPECIMEN / Unknown Lab Venipuncture / Unknown 11/10/2022 11:38 PM CDT 11/10/2022 11:56 PM CDT Good Antunez MD LAB - COAGULATION OR DERABLES [facility] [address] [place] [address], [facility] [phone] * (ABNORMAL) GLUCOSE - POINT OF CARE (11/10/2022 11:28 PM CDT) Pathologist [facility] Glucose WB/POC 117(H) 70 - 115 mg/dL 11/10/2022 11:33 PM CDT [facility] Specimen Type Cap Fingerstick 2022 11:33 PM [facility] Blood BLOOD SPECIMEN / Unknown 11/10/2022 11:28 PM CDT 11/10/2022 11:32 PM CDT Good Antunez MD LAB - POINT OF CARE ORDERABLES [facility] [address] [place] [address], [facility] [phone] * (ABNORMAL) CBC W AUTO DIFFERENTIAL (11/10/2022 2:24 AM CDT) WBC 3.6 3.5 - 10.5 10? 3 /uL 11/10/2022 2:57 AM [facility] RBC 3.23(L) 3.80 - 5.20 10? 6 /uL 11/10/2022 2:57 AM [facility] Hemoglobin 9.4(L) 12.0 - 15.6 g/dL 11/10/2022 2:57 AM [facility] Hematocrit 29.4(L) 35.0 - 45.0 % 11/10/2022 2:57 AM [facility] MCV 91.0 80.7 - 98.3 fL 11/10/2022 2:57 AM [facility] MCH 29.1 26.7 - 34.0 pg 11/10/2022 2:57 AM [facility] MCHC 32.0 30.8 - 35.9 g/dL 11/10/2022 2:57 AM [facility] RDW-SD 47.3 36.0 - 50.0 fL 11/10/2022 2:57 AM [facility] RDW-CV 14.3 11.2 - 14.8 % 11/10/2022 2:57 AM [facility] Platelet Count 302 150 - 400 10? 3 /uL 11/10/2022 2:57 AM [facility] MPV 10.9 9.4 - 12.9 fL 11/10/2022 2:57 AM [facility] nRBC Absolute 0.00 0 10? 3 /uL 11/10/2022 2:57 AM [facility] nRBC Auto 0.0 0 /100 WBC 11/10/2022 2:57 AM [facility] Neutrophils % 64.8 35.0 - 70.0 % 11/10/2022 2:57 AM [facility] Lymphocytes % 23.7 20.0 - 43.0 % 11/10/2022 2:57 AM [facility] Monocytes % 8.4 5.0 - 13.0 % 11/10/2022 2:57 AM [facility] Eosinophils % 1.4 0.0 - 6.0 % 11/10/2022 2:57 AM [facility] Basophil % 0.3 0.0 - 2.0 % 11/10/2022 2:57 AM [facility] Neutrophils Absolute 2.32 1.60 - 7.00 10? 3 /uL 11/10/2022 2:57 AM [facility] Lymphocyte Absolute 0.85(L) 1.10 - 3.90 10? 3 /uL 11/10/2022 2:57 AM [facility] Monocytes Absolute 0.30 0.26 - 1.07 10? 3 /uL 11/10/2022 2:57 AM [facility] Eosinophils Absolute 0.05 0.00 - 0.47 10? 3 /uL 11/10/2022 2:57 AM [facility] Basophils Absolute 0.01 0.00 - 0.08 10? 3 /uL 11/10/2022 2:57 AM [facility] Immature Granulocytes % 1.4(H) 0.0 - 1.0 % 11/10/2022 2:57 AM [facility] Immature Granulocytes Absolute 0.05 11/10/2022 2:57 AM [facility] Blood BLOOD SPECIMEN / Unknown Lab Venipuncture / Unknown 11/10/2022 2:24 AM CDT 11/10/2022 2:39 AM CDT Emir Vail MD LAB - HEMATOLOGY ORD ERABLES [facility] [address] [place] [address] [phone] * (ABNORMAL) PT-INR [facility] (11/10/2022 2:23 AM CDT) [facility] PT 20.5(H) 12.1 - 14.8 Seconds 11/10/2022 2:54 AM CDT [facility] INR 1.8 See Comment 11/10/2022 2:54 AM [facility] Comment:The suggested therap eutic range for standard coumadin (warfarin) therapy is an INR of 2.0-3.0. For high-risk patients (Mechanical Mitral Valve Prosthesis, etc.), the suggested prophylactic therapeutic range is an INR of 2.5-3.5. Blood BLOOD SPECIMEN / Unknown Lab Venipuncture / Unknown 11/10/2022 2:23 AM CDT 11/10/2022 2:29 AM CDT Emir Vail MD LAB - COAGULATION OR DERABLES Performing Organization Address City/State/[facility] Co de Phone Number [address] [address] [phone] * (ABNORMAL) BASIC METABOLIC PANEL (CALCIUM TOTAL) (11/10/2022 2:23 AM CDT) [facility] BUN 13 7 - 26 mg/dL 11/10/2022 3:12 AM [facility] Creatinine 0.52(L) 0.56 - 0.96 mg/dL 11/10/2022 3:12 AM [facility] Sodium 136 136 - 145 mmol/L 11/10/2022 3:12 AM [facility] Potassium 3.6 3.5 - 4.5 mmol/L 11/10/2022 3:12 AM [facility] Chloride 105 98 - 107 mmol/L 11/10/2022 3:12 AM [facility] CO2 24 22 - 29 mmol/L 11/10/2022 3:12 AM [facility] Glucose 120(H) 70 - 115 mg/dL 11/10/2022 3:12 AM [facility] Calcium 8.4 8.4 - 10.2 mg/dL 11/10/2022 3:12 AM CDT [facility] Anion Gap 11 8 - 18 11/10/2022 3:12 AM CDT [facility] BUN/Creatinine Ratio 25(H) 7 - 23 11/10/2022 3:12 AM CDT [facility] Osmolality Calculated 283 270 - 300 mOsm/kg 11/10/2022 3:12 AM T [facility] eGFR by CKD-EPI >90 >=90 mL/min/1.7 3 m2 11/10/2022 3:12 AM CDT [facility] Blood BLOOD SPECIMEN / Unknown Lab Venipuncture / Unknown 11/10/2022 2:23 AM CDT 11/10/2022 2:39 AM CDT Emir Vail MD LAB - CHEMISTRY [place] BL[facility] [address] [address], [facility] [phone] * PHOSPHORUS BLOOD (11/10/2022 2:23 AM CDT) Phosphorus 3.9 2.9 - 5.1 mg/dL 11/10/2022 3:12 AM CDT [facility] Blood BLOOD SPECIMEN / Unknown Lab Venipuncture / Unknown 11/10/2022 2:23 AM CDT 11/10/2022 2:39 AM CDT Emir Vail MD LAB - CHEMISTRY [place] BL[place] [address] [address], [facility] [phone] * MAGNESIUM BLOOD (11/10/2022 2:23 AM CDT) Magnesium 2.0 1.6 - 2.6 mg/dL 11/10/2022 3:12 AM CDT [facility] Blood BLOOD SPECIMEN / Unknown Lab Venipuncture / Unknown 11/10/2022 2:23 AM CDT 11/10/2022 2:39 AM CDT Emir Vail MD LAB - CHEMISTRY [place] Santamaria Organization Address City/State/ZIP Co de Phone Number [id number] [place] [address], [facility] [phone] * MRI BRAIN WWO CONTRAST (11/09/2022 11:50 [...] DATE/TIME OF EXAM: ??11/09/2022 11:51 PM, LOCATION ??[facility] INDICATION: R50.9: Fever, unspecified fever cause ADDITIONAL [...] of the right lateral ventricle and the [id number]-[id number] midline shift. Extensive susceptibility artifacts along the [...] CONTRAST, DATE/TIME OF EXAM: 11/09/2022 11:51PM, LOCATION [facility] INDICATION: R50.9: Fever, unspecified fever cause ADDITIONAL [...] of the right lateral ventricle and the [id number] midline shift. Extensive susceptibility artifacts along the [...] right lateral ventricle.. There is also small [id number] focus along the right temporal lobe (image [...] HEPATIC FUNCTION PANEL (11/09/2022 6:54 AM CDT) [facility] Protein Total 7.3 6.0 - 8.3 g/dL 7:25 AM T [facility] Albumin 2.6(L) 3.4 - 5.0 g/dL 11/09/2022 7:25 AM CDT [facility] Bilirubin Total 0.3 0.2 - 1.2 mg/dL 10/12 7:25 AM T [facility] Bilirubin Conjugated 0.1 0.1 - 0.5 mg/dL 11/09/2022 7:25 AM [facility] Bilirubin Unconjugated 0.2 Unconjugated Bilirubin is a calculated value: Reference ranges have not been established. mg/dL 11/09/2022 7:25 AM [facility] Alkaline Phosphatase 73 40 - 150 U/L 11/09/2022 7:25 AM [facility] ALT 77(H) 5 - 55 U/L 11/09/2022 7:25 AM [facility] AST 67(H) 5 - 34 U/L 11/09/2022 7:25 AM [facility] Albumin/Globulin Ratio 0.6(L) 1.1 - 2.3 11/09/2022 7:25 AM [facility] Blood BLOOD SPECIMEN / Unknown Lab Venipuncture / Unknown 11/09/2022 6:54 AM CDT 11/09/2022 7:06 AM CDT Angelica Cruz MD LAB - CHEMISTRY [place] [facility] Organization Address City/State/[facility] Co de Phone Number [facility] [address] [place] [id number] [phone] * VANCOMYCIN LEVEL TROUGH (11/09/2022 6:54 AM CDT) [facility] Vancomycin Trough 18.8 10.0 - 20.0 ug/mL 11/09/2022 7:24 AM [facility] Blood BLOOD SPECIMEN / Unknown Lab Venipuncture / Unknown 11/09/2022 6:54 AM CDT 11/09/2022 6:57 AM CDT Narrative [facility] - 11/09/2022 7:24 AM CDT See institution protocol. Jaime Drew MD LAB - CHEMISTRY [place] BLACK[facility] Performing Organization Address [facility]/ZIP Co de Phone Number [address] [address], [facility] [phone] * (ABNORMAL) PT-INR [facility] (11/09/2022 2:37 AM CDT) PT 18.9(H) 12.1 - 14.8 Seconds 11/09/2022 3:05 AM CDT [facility] INR 1.6 See Comment 11/09/2022 3:05 AM CDT [facility] Comment:The suggested therap eutic range for standard coumadin (warfarin) therapy is an INR of 2.0-3.0. For high-risk patients (Mechanical Mitral Valve Prosthesis, etc.), the suggested prophylactic therapeutic range is an INR of 2.5-3.5. Blood BLOOD SPECIMEN / Unknown Lab Venipuncture / Unknown 11/09/2022 2:37 AM CDT 11/09/2022 2:48 AM CDT Emir Vail MD LAB - COAGULATION OR DERABLES Performing Organization Address [facility] Co de Phone Number [address] [address], [facility] [phone] * (ABNORMAL) BASIC METABOLIC PANEL (CALCIUM TOTAL) (11/08/2022 11:46 PM CDT) BUN 9 7 - 26 mg/dL 11/09/2022 12:23 AM CDT [facility] Creatinine 0.45(L) 0.56 - 0.96 mg/dL 11/09/2022 12:23 AM CDT [facility] Sodium 141 136 - 145 mmol/L 11/09/2022 12:23 AM CDT [facility] Potassium 3.9 3.5 - 4.5 mmol/L 11/09/2022 12:23 AM CDT [facility] Chloride 107 98 - 107 mmol/L 11/09/2022 12:23 AM [facility] CO2 24 22 - 29 mmol/L 11/09/2022 12:23 AM [facility] Glucose 107 70 - 115 mg/dL 11/09/2022 12:23 AM [facility] Calcium 8.5 8.4 - 10.2 mg/dL 11/09/2022 12:23 AM [facility] Anion Gap 14 8 - 18 11/09/2022 12:23 AM [facility] BUN/Creatinine Ratio 20 7 - 23 11/09/2022 12:23 AM [facility] Osmolality Calculated 291 270 - 300 mOsm/kg 11/09/2022 12:23 AM [facility] eGFR by CKD-EPI >90 >=90 mL/min/1.7 3 m2 11/09/2022 12:23 AM [facility] Blood BLOOD SPECIMEN / Unknown Lab Venipuncture / Unknown 11/08/2022 11:46 PM CDT 11/08/2022 11:57 PM CDT Emir Vail MD LAB - CHEMISTRY BIBIANA BLACKMAN [facility] Organization Address City/State/ZIP Co de Phone Number [facility] [address] [place] [address], [facility] [phone] * (ABNORMAL) CBC W AUTO DIFFERENTIAL (11/08/2022 11:46 PM CDT) WBC 5.2 3.5 - 10.5 10? 3 /uL 11/09/2022 12:10 AM [facility] RBC 3.59(L) 3.80 - 5.20 10? 6 /uL 11/09/2022 12:10 AM [facility] Hemoglobin 10.4(L) 12.0 - 15.6 g/dL 11/09/2022 12:10 AM [facility] Hematocrit 33.1(L) 35.0 - 45.0 % 11/09/2022 12:10 AM [facility] MCV 92.2 80.7 - 98.3 fL 11/09/2022 12:10 AM [facility] MCH 29.0 26.7 - 34.0 pg 11/09/2022 12:10 AM [facility] MCHC 31.4 30.8 - 35.9 g/dL 11/09/2022 12:10 AM [facility] RDW-SD 48.2 36.0 - 50.0 fL 11/09/2022 12:10 AM [facility] RDW-CV 14.2 11.2 - 14.8 % 11/09/2022 12:10 AM [facility] Platelet Count 360 150 - 400 10? 3 /uL 11/09/2022 12:10 AM [facility] MPV 10.7 9.4 - 12.9 fL 11/09/2022 12:10 AM [facility] nRBC Absolute 0.00 0 10? 3 /uL 11/09/2022 12:10 AM [facility] nRBC Auto 0.0 0 /100 WBC 11/09/2022 12:10 AM [facility] Neutrophils % 58.8 35.0 - 70.0 % 11/09/2022 12:10 AM [facility] Lymphocytes % 24.8 20.0 - 43.0 % 11/09/2022 12:10 AM [facility] Monocytes % 12.1 5.0 - 13.0 % 11/09/2022 12:10 AM [facility] Eosinophils % 2.9 0.0 - 6.0 % 11/09/2022 12:10 AM [facility] Basophil % 0.4 0.0 - 2.0 % 11/09/2022 12:10 AM [facility] Neutrophils Absolute 3.07 1.60 - 7.00 10? 3 /uL 11/09/2022 12:10 AM [facility] Lymphocyte Absolute 1.29 1.10 - 3.90 10? 3 /uL 11/09/2022 12:10 AM [facility] Monocytes Absolute 0.63 0.26 - 1.07 10? 3 /uL 11/09/2022 12:10 AM [facility] Eosinophils Absolute 0.15 0.00 - 0.47 10? 3 /uL 11/09/2022 12:10 AM [facility] Basophils Absolute 0.02 0.00 - 0.08 10? 3 /uL 11/09/2022 12:10 AM CDT [facility] Immature Granulocytes % 1.0 0.0 - 1.0 % 11/09/2022 12:10 AM CDT [facility] Immature Granulocytes Absolute 0.05 11/09/2022 12:10 AM CDT [facility] Blood BLOOD SPECIMEN / Unknown Lab Venipuncture / Unknown 11/08/2022 11:46 PM CDT 11/08/2022 11:57 PM CDT Emir Vail MD LAB - HEMATOLOGY ORD DIMAS [address] [address], [place] [phone] * PHOSPHORUS BLOOD (11/08/2022 11:46 PM CDT) Phosphorus 3.8 2.9 - 5.1 mg/dL 11/09/2022 12:23 AM CDT [facility] Blood BLOOD SPECIMEN / Unknown Lab Venipuncture / Unknown 11/08/2022 11:46 PM CDT 11/08/2022 11:57 PM CDT Emir Vail MD LAB - CHEMISTRY BIBIANA BLACKMAN Performing Organization Address City/[facility]/ZIP Co de Phone Number [address] [address], [place] [phone] * MAGNESIUM BLOOD (11/08/2022 11:46 PM CDT) Magnesium 2.0 1.6 - 2.6 mg/dL 11/09/2022 12:23 AM CDT [facility] Blood BLOOD SPECIMEN / Unknown Lab Venipuncture / Unknown 11/08/2022 11:46 PM CDT 11/08/2022 11:57 PM CDT Emir Vail MD LAB - CHEMISTRY BIBIANA BLACKMAN [address] [address], [facility] [phone] * VAS BILATERAL VENOUS DUPLEX LE (11/08/2022 [...] VASCULAR LAB ORDERAB LES * (ABNORMAL) PT-INR [facility] (11/08/2022 2:54 AM CDT) PT 18.3(H) 12.1 - 14.8 Seconds 11/08/2022 4:34 AM CDT [facility] INR 1.6 See Comment 11/08/2022 4:34 AM CDT [facility] Comment:The suggested therap eutic range for standard coumadin (warfarin) therapy is an INR of 2.0-3.0. For high-risk patients (Mechanical Mitral Valve Prosthesis, etc.), the suggested prophylactic therapeutic range is an INR of 2.5-3.5. Blood BLOOD SPECIMEN / Unknown Lab Venipuncture / Unknown 11/08/2022 2:54 AM CDT 11/08/2022 3:41 AM CDT Emir Vail MD LAB - COAGULATION OR DERABLES [facility] [address] [place] [address], [place] [phone] * (ABNORMAL) BASIC METABOLIC PANEL (CALCIUM TOTAL) (11/07/2022 10:34 PM CDT) [facility] BUN 8 7 - 26 mg/dL 11/08/2022 12:05 AM [facility] Creatinine 0.53(L) 0.56 - 0.96 mg/dL 11/08/2022 12:05 AM [facility] Sodium 141 136 - 145 mmol/L 11/08/2022 12:05 AM [facility] Potassium 3.6 3.5 - 4.5 mmol/L 11/08/2022 12:05 AM [facility] Chloride 108(H) 98 - 107 mmol/L 11/08/2022 12:05 AM [facility] CO2 22 22 - 29 mmol/L 11/08/2022 12:05 AM [facility] Glucose 107 70 - 115 mg/dL 11/08/2022 12:05 AM [facility] Calcium 8.6 8.4 - 10.2 mg/dL 11/08/2022 12:05 AM [facility] Anion Gap 15 8 - 18 11/08/2022 12:05 AM [facility] BUN/Creatinine Ratio 15 7 - 23 11/08/2022 12:05 AM [facility] Osmolality Calculated 291 270 - 300 mOsm/kg 11/08/2022 12:05 AM [facility] eGFR by CKD-EPI >90 >=90 mL/min/1.7 3 m2 11/08/2022 12:05 AM [facility] Blood BLOOD SPECIMEN / Unknown Lab Venipuncture / Unknown 11/07/2022 10:34 PM CDT 11/07/2022 11:34 PM CDT Emir Vail MD LAB - CHEMISTRY BIIBANA BLACKMAN [facility] Organization Address City/State/ZIP Co de Phone Number [facility] [address] [place] [address], [facility] [phone] * (ABNORMAL) CBC W AUTO DIFFERENTIAL (11/07/2022 10:34 PM CDT) [facility] WBC 4.7 3.5 - 10.5 10? 3 /uL 11/07/2022 11:51 PM [facility] RBC 3.18(L) 3.80 - 5.20 10? 6 /uL 11/07/2022 11:51 PM [facility] Hemoglobin 9.2(L) 12.0 - 15.6 g/dL 11/07/2022 11:51 PM [facility] Hematocrit 29.5(L) 35.0 - 45.0 % 11/07/2022 11:51 PM [facility] MCV 92.8 80.7 - 98.3 fL 11/07/2022 11:51 PM [facility] MCH 28.9 26.7 - 34.0 pg 11/07/2022 11:51 PM [facility] MCHC 31.2 30.8 - 35.9 g/dL 11/07/2022 11:51 PM [facility] RDW-SD 47.8 36.0 - 50.0 fL 11/07/2022 11:51 PM [facility] RDW-CV 14.1 11.2 - 14.8 % 11/07/2022 11:51 PM [facility] Platelet Count 325 150 - 400 10? 3 /uL 11/07/2022 11:51 PM [facility] MPV 11.0 9.4 - 12.9 fL 11/07/2022 11:51 PM [facility] nRBC Absolute 0.00 0 10? 3 /uL 11/07/2022 11:51 PM [facility] nRBC Auto 0.0 0 /100 WBC 11/07/2022 11:51 PM [facility] Neutrophils % 57.5 35.0 - 70.0 % 11/07/2022 11:51 PM [facility] Lymphocytes % 29.9 20.0 - 43.0 % 11/07/2022 11:51 PM [facility] Monocytes % 10.7 5.0 - 13.0 % 11/07/2022 11:51 PM [facility] Eosinophils % 1.3 0.0 - 6.0 % 11/07/2022 11:51 PM CDT [facility] Basophil % 0.2 0.0 - 2.0 % 11/07/2022 11:51 PM CDT [facility] Neutrophils Absolute 2.70 1.60 - 7.00 10? 3 /uL 11/07/2022 11:51 PM CDT [facility] Lymphocyte Absolute 1.40 1.10 - 3.90 10? 3 /uL 11/07/2022 11:51 PM CDT [facility] Monocytes Absolute 0.50 0.26 - 1.07 10? 3 /uL 11/07/2022 11:51 PM CDT [facility] Eosinophils Absolute 0.06 0.00 - 0.47 10? 3 /uL 11/07/2022 11:51 PM CDT [facility] Basophils Absolute 0.01 0.00 - 0.08 10? 3 /uL 11/07/2022 11:51 PM CDT [facility] Immature Granulocytes % 0.4 0.0 - 1.0 % 11/07/2022 11:51 PM CDT [facility] Immature Granulocytes Absolute 0.02 11/07/2022 11:51 PM CDT [facility] Blood BLOOD SPECIMEN / Unknown Lab Venipuncture / Unknown 11/07/2022 10:34 PM CDT 11/07/2022 11:34 PM CDT Emir Vail MD LAB - HEMATOLOGY ORD DIMAS [address] [address], [facility] [phone] * PHOSPHORUS BLOOD (11/07/2022 10:34 PM CDT) Phosphorus 4.3 2.9 - 5.1 mg/dL 11/08/2022 12:05 AM CDT [facility] Blood BLOOD SPECIMEN / Unknown Lab Venipuncture / Unknown 11/07/2022 10:34 PM CDT 11/07/2022 11:34 PM CDT Emir Vail MD LAB - CHEMISTRY ORDE HIRAL [address] [place] [address], [place] [phone] * (ABNORMAL) MAGNESIUM BLOOD (11/07/2022 10:34 PM CDT) Magnesium 2.8(H) 1.6 - 2.6 mg/dL 11/08/2022 12:05 AM CDT [facility] Blood BLOOD SPECIMEN / Unknown Lab Venipuncture / Unknown 11/07/2022 10:34 PM CDT 11/07/2022 11:34 PM CDT Emir Vail MD LAB - CHEMISTRY ORDE [facility] Organization Address City/State/ZIP Co de Phone Number [facility] [address] [place] [address], [facility] [phone] * CT ANGIO CHEST PULM EMBOLISM (11/07/2022 5:22 PM CDT) Anatomical Region Laterality Modality Chest Computed Tomogra phy 11/07/2022 5:34 PM CDT Impressions 11/07/2022 10:30 PM CDT Impression: 1.No evidence of acute pulmonary embolism. There is no radiographic evidence of right heart strain. 2.No other acute process within the chest. > Dictated by Tim Major MD (president mortgage [employer]). I, Alxex Lopez have personally reviewed and interpreted this examination/study. > Interpreting Provider: Alexx Lopez on 11/07/2022 10:30 PM Narrative 11/07/2022 10:30 PM CDT PROCEDURE: ??CT ANGIO CHEST PULM EMBOLISM, DATE/TIME OF EXAM: ??11/07/2022 5:25 PM, LOCATION ??[facility] INDICATION: R50.9: Fever, unspecified fever cause ADDITIONAL [...] DATE/TIME OF EXAM: 11/07/2022 5:25 PM, LOCATION [facility] INDICATION: R50.9: Fever, unspecified fever cause ADDITIONAL [...] chest. > Dictated by Tim Major MD (president mortgage [employer]). [employer]Alexx have personally reviewed and interpreted this examination/study. > Interpreting Provider: Alexx Lopez on 11/07/2022 10:30 PM Jaime Drew MD CT ORDERABLES * (ABNORMAL) PT-INR [facility] (11/07/2022 3:05 AM CDT) PT 18.4(H) 12.1 - 14.8 Seconds 11/07/2022 4:26 AM CDT [facility] INR 1.6 See Comment 11/07/2022 4:26 AM CDT [facility] Comment:The suggested therap eutic [...] - COAGULATION OR DERABLES Performing Organization Address City/[facility]/ZIP Co de Phone Number [address] [address], [place] [phone] * (ABNORMAL) PTT [facility] (11/06/2022 11:12 PM CDT) APTT 63.4(H) 23.0 - 38.4 Seconds 11/07/2022 12:00 AM CDT [facility]ORAT[facility] Comment:Suggested therapeuti c range for full dose I.V. unfractionated heparin therapy for venous thromboembolism is 71 to 109 seconds. Blood BLOOD SPECIMEN / Unknown Lab Venipuncture / Unknown 11/06/2022 11:12 PM CDT 11/06/2022 11:42 PM CDT Jaime Drew MD LAB - COAGULATION OR DERABLES Performing Organization Address City/[facility]/ZIP Co de Phone Number [address] [address], [place] [phone] * (ABNORMAL) BASIC METABOLIC PANEL (CALCIUM TOTAL) (11/06/2022 11:12 PM CDT) BUN 8 7 - 26 mg/dL 11/07/2022 12:13 AM [facility] Creatinine 0.46(L) 0.56 - 0.96 mg/dL 11/07/2022 12:13 AM [facility] Sodium 140 136 - 145 mmol/L 11/07/2022 12:13 AM [facility] Potassium 3.6 3.5 - 4.5 mmol/L 11/07/2022 12:13 AM [facility] Chloride 108(H) 98 - 107 mmol/L 11/07/2022 12:13 AM [facility] CO2 22 22 - 29 mmol/L 11/07/2022 12:13 AM [facility] Glucose 107 70 - 115 mg/dL 11/07/2022 12:13 AM [facility] Calcium 8.5 8.4 - 10.2 mg/dL 11/07/2022 12:13 AM [facility] Anion Gap 14 8 - 18 11/07/2022 12:13 AM [facility] BUN/Creatinine Ratio 17 7 - 23 11/07/2022 12:13 AM [facility] Osmolality Calculated 289 270 - 300 mOsm/kg 11/07/2022 12:13 AM [facility] eGFR by CKD-EPI >90 >=90 mL/min/1.7 3 m2 11/07/2022 12:13 AM [facility] Blood BLOOD SPECIMEN / Unknown Lab Venipuncture / Unknown 11/06/2022 11:12 PM CDT 11/06/2022 11:44 PM CDT Emir Vail MD LAB - CHEMISTRY BIBIANA BLACKMAN [facility] Organization Address City/State/ZIP Co de Phone Number [address] [address], [facility] [phone] * (ABNORMAL) CBC W AUTO DIFFERENTIAL (11/06/2022 11:12 PM CDT) WBC 4.7 3.5 - 10.5 10? 3 /uL 11/06/2022 11:51 PM [facility] RBC 3.20(L) 3.80 - 5.20 10? 6 /uL 11/06/2022 11:51 PM [facility] Hemoglobin 9.3(L) 12.0 - 15.6 g/dL 11/06/2022 11:51 PM [facility] Hematocrit 29.5(L) 35.0 - 45.0 % 11/06/2022 11:51 PM [facility] MCV 92.2 80.7 - 98.3 fL 11/06/2022 11:51 PM [facility] MCH 29.1 26.7 - 34.0 pg 11/06/2022 11:51 PM [facility] MCHC 31.5 30.8 - 35.9 g/dL 11/06/2022 11:51 PM [facility] RDW-SD 47.7 36.0 - 50.0 fL 11/06/2022 11:51 PM [facility] RDW-CV 14.1 11.2 - 14.8 % 11/06/2022 11:51 PM [facility] Platelet Count 195 150 - 400 10? 3 /uL 11/06/2022 11:51 PM [facility] MPV 11.8 9.4 - 12.9 fL 11/06/2022 11:51 PM [facility] nRBC Absolute 0.00 0 10? 3 /uL 11/06/2022 11:51 PM [facility] nRBC Auto 0.0 0 /100 WBC 11/06/2022 11:51 PM [facility] Neutrophils % 47.0 35.0 - 70.0 % 11/06/2022 11:51 PM [facility] Lymphocytes % 36.7 20.0 - 43.0 % 11/06/2022 11:51 PM [facility] Monocytes % 11.9 5.0 - 13.0 % 11/06/2022 11:51 PM [facility] Eosinophils % 3.2 0.0 - 6.0 % 11/06/2022 11:51 PM [facility] Basophil % 0.4 0.0 - 2.0 % 11/06/2022 11:51 PM CDT [facility] Neutrophils Absolute 2.21 1.60 - 7.00 10? 3 /uL 11/06/2022 11:51 PM CDT [facility] Lymphocyte Absolute 1.73 1.10 - 3.90 10? 3 /uL 11/06/2022 11:51 PM CDT [facility] Monocytes Absolute 0.56 0.26 - 1.07 10? 3 /uL 11/06/2022 11:51 PM CDT [facility] Eosinophils Absolute 0.15 0.00 - 0.47 10? 3 /uL 11/06/2022 11:51 PM CDT [facility] Basophils Absolute 0.02 0.00 - 0.08 10? 3 /uL 11/06/2022 11:51 PM CDT [facility] Immature Granulocytes % 0.8 0.0 - 1.0 % 11/06/2022 11:51 PM CDT [facility] Immature Granulocytes Absolute 0.04 11/06/2022 11:51 PM CDT [facility] Blood BLOOD SPECIMEN / Unknown Lab Venipuncture / Unknown 11/06/2022 11:12 PM CDT 11/06/2022 11:44 PM CDT Emir Vail MD LAB - HEMATOLOGY ORD ERABLES [address] [address], [facility] [phone] * PHOSPHORUS BLOOD (11/06/2022 11:12 PM CDT) Phosphorus 4.3 2.9 - 5.1 mg/dL 11/07/2022 12:13 AM CDT [facility] Blood BLOOD SPECIMEN / Unknown Lab Venipuncture / Unknown 11/06/2022 11:12 PM CDT 11/06/2022 11:44 PM CDT Emir Vail MD LAB - CHEMISTRY ORDDanyelle BLACKMAN [address] [address], [place] [phone] * MAGNESIUM BLOOD (11/06/2022 11:12 PM CDT) Magnesium 2.0 1.6 - 2.6 mg/dL 11/07/2022 12:13 AM CDT [facility] Blood BLOOD SPECIMEN / Unknown Lab Venipuncture / Unknown 11/06/2022 11:12 PM CDT 11/06/2022 11:44 PM CDT Emir Vail MD LAB - CHEMISTRY ORDE HIRAL [address] [address], [facility] [phone] * (ABNORMAL) PTT [facility] (11/06/2022 6:30 PM CDT) APTT 68.6(H) 23.0 - 38.4 Seconds 11/06/2022 7:03 PM CDT [facility] Comment:Suggested therapeuti c range for full dose I.V. unfractionated heparin therapy for venous thromboembolism is 71 to 109 seconds. Blood BLOOD SPECIMEN / Unknown Lab Venipuncture / Unknown 11/06/2022 6:30 PM CDT 11/06/2022 6:33 PM CDT Jaime Drew MD LAB - COAGULATION OR DERABLES [facility] [address] [place] [address], [facility] [phone] * ECHO COMPLETE W CONTRAST (11/06/2022 1:49 PM CDT) BSA [id number] m2 [facility]J I PACS LV [...] PACS MV E/e' lateral 7.262 [facility]k arianna 224.0 cm/s [facility] I PACS LVOT pk arianna 0.91 m/s [facility] CV F UJI PACS LVOT mn arianna 0.54 m/s [facility] CV F [facility]I PACS LVOT mn grad 1.4 mmHg [facility] CV [facility]I PACS LVOT Cardiac Output 4.588 l/min [facility] CV [facility] PACS LVOT Cardiac Index 2.17 l/min/m2 [facility] CV [facility] PACS LA vol BP A-L 54.925 mL [facility] RV-mahmood basal diam 3.2 2.5 - 4.1 cm [facility] CV [facility]I PACS RV-mahmood longitudinal diam 8.8 5.9 - 8.3 cm [facility] RVIDd 3.0 cm [facility] I PACS RVOT VTI 17.595 cm [facility] I PACS TAPSE 2.324 1.7 cm [facility] I PACS RVOT pk arianna 0.85 m/s [facility] CV F [facility]JI PACS RA area 19.252 cm2 [facility] CV [facility] I PACS AV mn grad 5 mmHg [...] HR 153 [facility] CV [facility]UJ I PACS [id number] 6.938 cm [facility] CV [facility]J I PACS [id number] 6.869 cm [facility] CV FUJ I PACS [...] CV FUJ I PACS TV pk arianna [id number] cm/s [facility] CV [facility]JI PACS TV mn [...] Drew MD ECHO CUPID * (ABNORMAL) PTT [facility] (11/06/2022 7:40 AM CDT) APTT 97.1(H) 23.0 - 38.4 Seconds 11/06/2022 8:29 AM CDT [facility] Comment:Suggested therapeuti c range for full dose I.V. unfractionated heparin therapy for venous thromboembolism is 71 to 109 seconds. Blood BLOOD SPECIMEN / Unknown Lab Venipuncture / Unknown 11/06/2022 7:40 AM CDT 11/06/2022 8:12 AM CDT Jaime Drew MD LAB - COAGULATION OR DERABLES [facility] [address] [place] [address], [facility] [phone] * (ABNORMAL) PT-INR [facility] (11/06/2022 1:36 AM CDT) PT 17.1(H) 12.1 - 14.8 Seconds 11/06/2022 1:58 AM CDT [facility] INR 1.4 See Comment 11/06/2022 1:58 AM CDT [facility] Comment:The suggested therap eutic range for standard coumadin (warfarin) therapy is an INR of 2.0-3.0. For high-risk patients (Mechanical Mitral Valve Prosthesis, etc.), the suggested prophylactic therapeutic range is an INR of 2.5-3.5. Blood BLOOD SPECIMEN / Unknown Venipuncture / Unknown 11/06/2022 1:36 AM CDT 11/06/2022 1:39 AM CDT Emir Vail MD LAB - COAGULATION OR DERABLES Performing Organization Address [facility] Co de Phone Number [address] [address], [facility] [phone] * (ABNORMAL) PTT [facility] (11/06/2022 1:36 AM CDT) APTT 100.4(HH) 23.0 - 38.4 Seconds 11/06/2022 1:58 AM CDT [facility] Comment:Suggested therapeuti c range for full dose I.V. unfractionated heparin therapy for venous thromboembolism is 71 to 109 seconds. Blood BLOOD SPECIMEN / Unknown Venipuncture / Unknown 11/06/2022 1:36 AM CDT 11/06/2022 1:39 AM CDT Jaime Drew MD LAB - COAGULATION OR DERABLES Performing Organization Address [facility] Co de Phone Number [address] [address], [facility] [phone] * (ABNORMAL) BASIC METABOLIC PANEL (CALCIUM TOTAL) (11/06/2022 1:36 AM CDT) BUN 8 7 - 26 mg/dL 11/06/2022 2:10 AM CDT [facility] Creatinine 0.56 0.56 - 0.96 mg/dL 11/06/2022 2:10 AM CDT [facility] Sodium 139 136 - 145 mmol/L 11/06/2022 2:10 AM [facility] Potassium 3.5 3.5 - 4.5 mmol/L 11/06/2022 2:10 AM [facility] Chloride 111(H) 98 - 107 mmol/L 11/06/2022 2:10 AM [facility] CO2 21(L) 22 - 29 mmol/L 11/06/2022 2:10 AM [facility] Glucose 144(H) 70 - 115 mg/dL 11/06/2022 2:10 AM [facility] Calcium 8.3(L) 8.4 - 10.2 mg/dL 11/06/2022 2:10 AM [facility] Anion Gap 11 8 - 18 11/06/2022 2:10 AM [facility] BUN/Creatinine Ratio 14 7 - 23 11/06/2022 2:10 AM [facility] Osmolality Calculated 289 270 - 300 mOsm/kg 11/06/2022 2:10 AM [facility] eGFR by CKD-EPI >90 >=90 mL/min/1.7 3 m2 11/06/2022 2:10 AM [facility] Blood BLOOD SPECIMEN / Unknown Venipuncture / Unknown 11/06/2022 1:36 AM CDT 11/06/2022 1:42 AM CDT Emir Vail MD LAB - CHEMISTRY [facility] Organization Address [facility]/State/ZIP Co de Phone Number [facility] [address] [place] [phone], [facility] [phone] * (ABNORMAL) CBC W AUTO DIFFERENTIAL (11/06/2022 1:36 AM CDT) WBC 6.5 3.5 - 10.5 10? 3 /uL 11/06/2022 1:52 AM [facility] RBC 3.42(L) 3.80 - 5.20 10? 6 /uL 11/06/2022 1:52 AM [facility] Hemoglobin 10.0(L) 12.0 - 15.6 g/dL 11/06/2022 1:52 AM [facility] Hematocrit 32.8(L) 35.0 - 45.0 % 11/06/2022 1:52 AM [facility] MCV 95.9 80.7 - 98.3 fL 11/06/2022 1:52 AM [facility] MCH 29.2 26.7 - 34.0 pg 11/06/2022 1:52 AM [facility] MCHC 30.5(L) 30.8 - 35.9 g/dL 11/06/2022 1:52 AM [facility] RDW-SD 49.5 36.0 - 50.0 fL 11/06/2022 1:52 AM [facility] RDW-CV 14.2 11.2 - 14.8 % 11/06/2022 1:52 AM [facility] Platelet Count 155 150 - 400 10? 3 /uL 11/06/2022 1:52 AM [facility] MPV 10.9 9.4 - 12.9 fL 11/06/2022 1:52 AM [facility] nRBC Absolute 0.00 0 10? 3 /uL 11/06/2022 1:52 AM [facility] nRBC Auto 0.0 0 /100 WBC 11/06/2022 1:52 AM [facility] Neutrophils % 71.1(H) 35.0 - 70.0 % 11/06/2022 1:52 AM [facility] Lymphocytes % 19.0(L) 20.0 - 43.0 % 11/06/2022 1:52 AM [facility] Monocytes % 8.0 5.0 - 13.0 % 11/06/2022 1:52 AM [facility] Eosinophils % 0.5 0.0 - 6.0 % 11/06/2022 1:52 AM [facility] Basophil % 0.5 0.0 - 2.0 % 11/06/2022 1:52 AM [facility] Neutrophils Absolute 4.65 1.60 - 7.00 10? 3 /uL 11/06/2022 1:52 AM [facility] Lymphocyte Absolute 1.24 1.10 - 3.90 10? 3 /uL 11/06/2022 1:52 AM CDT [facility] Monocytes Absolute 0.52 0.26 - 1.07 10? 3 /uL 11/06/2022 1:52 AM CDT [facility] Eosinophils Absolute 0.03 0.00 - 0.47 10? 3 /uL 11/06/2022 1:52 AM CDT [facility] Basophils Absolute 0.03 0.00 - 0.08 10? 3 /uL 11/06/2022 1:52 AM CDT [facility] Immature Granulocytes % 0.9 0.0 - 1.0 % 11/06/2022 1:52 AM CDT [facility] Immature Granulocytes Absolute 0.06 11/06/2022 1:52 AM CDT [facility] Blood BLOOD SPECIMEN / Unknown Venipuncture / Unknown 11/06/2022 1:36 AM CDT 11/06/2022 1:42 AM CDT Emir Vail MD LAB - HEMATOLOGY ORD ERABLES [address] [phone], [facility] [phone] * PHOSPHORUS BLOOD (11/06/2022 1:36 AM CDT) Phosphorus 3.6 2.9 - 5.1 mg/dL 11/06/2022 2:10 AM CDT [facility] Blood BLOOD SPECIMEN / Unknown Venipuncture / Unknown 11/06/2022 1:36 AM CDT 11/06/2022 1:42 AM CDT Emir Vail MD LAB - CHEMISTRY ORDE HIRAL [address] [address], [facility] [phone] * MAGNESIUM BLOOD (11/06/2022 1:36 AM CDT) Magnesium 2.0 1.6 - 2.6 mg/dL 11/06/2022 2:10 AM CDT [facility] Blood BLOOD SPECIMEN / Unknown Venipuncture / Unknown 11/06/2022 1:36 AM CDT 11/06/2022 1:42 AM CDT Emir Vail MD LAB - CHEMISTRY BIBIANA BLACKMAN Performing Organization Address City/[facility]/ZIP Co de Phone Number [address] [address], [facility] [phone] * (ABNORMAL) C-REACTIVE PROTEIN (11/06/2022 1:36 AM CDT) [facility] C-Reactive Protein 7.1(H) <=0.5 mg/dL 11/06/2022 2:08 AM CDT [facility] Blood BLOOD SPECIMEN / Unknown Venipuncture / Unknown 11/06/2022 1:36 AM CDT 11/06/2022 1:40 AM CDT Jaime Drew MD LAB - CHEMISTRY BIBIANA BLACKMAN Performing Organization Address [facility]/ZIP Co de Phone Number [address] [address], [facility] [phone] * (ABNORMAL) CBC W AUTO DIFFERENTIAL (11/06/2022 1:36 AM CDT) [facility] WBC 7.9 3.5 - 10.5 10? 3 /uL 11/06/2022 1:45 AM CDT [facility] RBC 3.28(L) 3.80 - 5.20 10? 6 /uL 11/06/2022 1:45 AM CDT [facility] Hemoglobin 9.7(L) 12.0 - 15.6 g/dL 11/06/2022 1:45 AM T [facility] Hematocrit 30.2(L) 35.0 - 45.0 % 11/06/2022 1:45 AM T [facility] MCV 92.1 80.7 - 98.3 fL 11/06/2022 1:45 AM CDT [facility] MCH 29.6 26.7 - 34.0 pg 11/06/2022 1:45 AM CDT [facility] MCHC 32.1 30.8 - 35.9 g/dL 11/06/2022 1:45 AM [facility] RDW-SD 47.8 36.0 - 50.0 fL 11/06/2022 1:45 AM [facility] RDW-CV 14.2 11.2 - 14.8 % 11/06/2022 1:45 AM [facility] Platelet Count 247 150 - 400 10? 3 /uL 11/06/2022 1:45 AM [facility] MPV 10.7 9.4 - 12.9 fL 11/06/2022 1:45 AM [facility] nRBC Absolute 0.00 0 10? 3 /uL 11/06/2022 1:45 AM [facility] nRBC Auto 0.0 0 /100 WBC 11/06/2022 1:45 AM [facility] Neutrophils % 70.9(H) 35.0 - 70.0 % 11/06/2022 1:45 AM [facility] Lymphocytes % 17.4(L) 20.0 - 43.0 % 11/06/2022 1:45 AM [facility] Monocytes % 9.8 5.0 - 13.0 % 11/06/2022 1:45 AM [facility] Eosinophils % 0.4 0.0 - 6.0 % 11/06/2022 1:45 AM [facility] Basophil % 0.4 0.0 - 2.0 % 11/06/2022 1:45 AM [facility] Neutrophils Absolute 5.62 1.60 - 7.00 10? 3 /uL 11/06/2022 1:45 AM [facility] Lymphocyte Absolute 1.38 1.10 - 3.90 10? 3 /uL 11/06/2022 1:45 AM [facility] Monocytes Absolute 0.78 0.26 - 1.07 10? 3 /uL 11/06/2022 1:45 AM [facility] Eosinophils Absolute 0.03 0.00 - 0.47 10? 3 /uL 11/06/2022 1:45 AM [facility] Basophils Absolute 0.03 0.00 - 0.08 10? 3 /uL 11/06/2022 1:45 AM [facility] Immature Granulocytes % 1.1(H) 0.0 - 1.0 % 11/06/2022 1:45 AM CDT [facility] Immature Granulocytes Absolute 0.09 11/06/2022 1:45 AM CDT [facility] Blood BLOOD SPECIMEN / Unknown Venipuncture / Unknown 11/06/2022 1:36 AM CDT 11/06/2022 1:42 AM CDT Jaime Drew MD LAB - HEMATOLOGY ORD ERABLES Performing Organization Address [facility]/ZIP Co de Phone Number [address] [address], [facility] [phone] * TSH REFLEX FREE T4 (11/06/2022 1:36 AM CDT) TSH 1.682 0.350 - 4.940 uIU/mL 11/06/2022 2:28 AM CDT [facility] Blood BLOOD SPECIMEN / Unknown Venipuncture / Unknown 11/06/2022 1:36 AM CDT 11/06/2022 1:42 AM CDT Jaime Drew MD LAB - CHEMISTRY ORDE RABKAREN Performing Organization Address [facility] Co de Phone Number [address] [address], [facility] [phone] * (ABNORMAL) D-DIMER (11/06/2022 1:36 AM CDT) D-Dimer Quantitative 2.30(H) <=0.50 mcg/mL FEU 11/06/2022 1:54 AM CDT [facility] Comment: In the absence of [...] AM CDT 11/06/2022 1:39 AM CDT Jaime Drwe MD LAB - COAGULATION OR DERABLES Performing Organization Address [facility]/State/ZIP Co de Phone Number [address] [address], [facility] [phone] * XR ABDOMEN KUB PORTABLE (11/05/2022 5:28 PM CDT) Anatomical Region Laterality Modality Abdomen Radiographic Irene ging 11/06/2022 7:14 AM CDT Impressions 11/06/2022 10:30 PM CDT IMPRESSION: Non-obstructive bowel gas pattern. Report dictated by Mc Castro MD, (president mortgage company). I, Pepe Gonzalez MD have personally reviewed and interpreted this examination/study. > Interpreting Provider: Pepe Gonzalez MD on 11/06/2022 10:30 PM Narrative 11/06/2022 10:30 PM CDT PROCEDURE: ??XR ABDOMEN KUB PORTABLE, DATE/TIME OF EXAM: ??11/05/2022 5:28 PM, LOCATION ??[facility] INDICATION: R50.9: Fever, unspecified fever cause ADDITIONAL [...] PORTABLE, DATE/TIME OF EXAM: 11/05/2022 5:28PM, LOCATION [facility] INDICATION: R50.9: Fever, unspecified fever cause ADDITIONAL [...] pattern. Report dictated by Mc Castro MD, (president mortgage company). I, Pepe Gonzalez MD have personally reviewed and interpreted this examination/study. > Interpreting Provider: Pepe Gonzalez MD on 11/06/2022 10:30 PM Jaime Drew MD DIAGNOSTIC IMAGING O RDERABLES * PTT [facility] (11/05/2022 4:58 PM CDT) APTT 27.5 23.0 - 38.4 Seconds 11/05/2022 5:29 PM CDT [facility] Comment:Suggested therapeuti c range for full dose I.V. unfractionated heparin therapy for venous thromboembolism is 71 to 109 seconds. Blood BLOOD SPECIMEN / Unknown Venipuncture / Unknown 11/05/2022 4:58 PM CDT 11/05/2022 5:03 PM CDT Jaime Drew MD LAB - COAGULATION OR DERABLES [facility] [address] [place] [address], [place] [phone] * RESPIRATORY PANEL WITH SARS-COV-2 BY PCR (STL) (11/05/2022 1:10 PM CDT) Pathologist [facility] Adenovirus PCR Not detected Not detected 11/05/2022 [...] detected Not detected 11/05/2022 5:32 PM CDT [facility] Microbiology SPECIMEN FROM NASOPHARYNGEAL STRUCTURE / Unknown Collection / Unknown 11/05/2022 1:10 PM CDT 11/05/2022 1:41 PM CDT Narrative [facility] - 11/05/2022 5:32 PM CDT This nucleic amplification assay has received FDA authorization via the [employer]. Jaime Drew MD LAB - MICROBIOLOGY O DIONI Performing Organization Address [facility] Co de Phone Number [facility] [address] [place] [address], [facility] [phone] * CULTURE URINE (11/05/2022 1:07 PM CDT) Pathologist [facility] Culture Urine No growth (<100 CFU/mL) ROSELIA 11/06/2022 4:17 PM CDT [facility] Urine URINE SPECIMEN OBTAINED BY SINGLE CATHETERIZATION OF URINARY BLADDER / Unknown Collection / Unknown 11/05/2022 1:07 PM CDT 11/05/2022 1:41 PM CDT Jaime Drew MD LAB - MICROBIOLOGY O DIONI Performing Organization Address [facility] de Phone Number [facility] [address] [place] [address], [facility] [phone] * (ABNORMAL) URINALYSIS REFLEX TO MICROSCOPIC NO CULTURE (11/05/2022 12:54 PM CDT) Color UA Yellow Straw, Yellow 11/05/2022 1:53 PM CDT [facility] Clarity UA Slt Cloudy(A) Clear 11/05/2022 1:53 PM CDT [facility] Specific Sugar Tree UA 1.016 1.005 - 1.030 11/05/2022 1:53 PM CDT [facility] pH UA 7.0 5.0 - 8.0 pH 11/05/2022 1:53 PM CDT [facility] Protein UA Negative Negative 11/05/2022 1:53 PM CDT [facility] Glucose UA Negative Negative 11/05/2022 1:53 PM CDT [facility] Ketone UA Negative Negative 11/05/2022 1:53 PM CDT [facility] Bilirubin UA Negative Negative 11/05/2022 1:53 PM CDT [facility] Blood UA 1+(A) Negative 11/05/2022 1:53 PM CDT [facility] Nitrite UA Negative Negative 11/05/2022 1:53 PM CDT [facility] Leukocyte Esterase Negative Negative 11/05/2022 1:53 PM CDT [facility] Urobilinogen UA Negative Negative mg/dL 11/05/2022 1:53 PM CDT [facility] RBC UA 51-100(A) None Seen, 0-2, 3-5 /HPF 11/05/2022 1:53 PM CDT [facility] WBC UA 6-10(A) None Seen, 0-5 /HPF 11/05/2022 1:53 PM CDT [facility] Bacteria UA Trace(A) None /HPF 11/05/2022 1:53 PM CDT [facility] Squamous Epithelial Cells UA 0-2 None Seen, 0-2, 3-5 /HPF 11/05/2022 1:53 PM CDT [facility] Mucus UA 1+ /LPF 11/05/2022 1:53 PM CDT [facility] Amorphous Crystals Rare(A) None /HPF 11/05/2022 1:53 PM CDT [facility] Urine URINE SPECIMEN OBTAINED BY SINGLE CATHETERIZATION OF URINARY BLADDER / Unknown Collection / Unknown 11/05/2022 12:54 PM CDT 11/05/2022 1:41 PM CDT Narrative [facility] - 11/05/2022 1:53 PM CDT Jaime Drew MD LAB - URINALYSIS ORD ERABLES [facility] [address] [place] [address], [facility] [phone] * (ABNORMAL) CBC W AUTO DIFFERENTIAL (11/05/2022 12:27 PM CDT) WBC 6.9 3.5 - 10.5 10? 3 /uL 11/05/2022 1:02 PM [facility] RBC 3.24(L) 3.80 - 5.20 10? 6 /uL 11/05/2022 1:02 PM [facility] Hemoglobin 9.7(L) 12.0 - 15.6 g/dL 11/05/2022 1:02 [facility] Hematocrit 29.6(L) 35.0 - 45.0 % 11/05/2022 1:02 PM [facility] MCV 91.4 80.7 - 98.3 fL 11/05/2022 1:02 PM [facility] MCH 29.9 26.7 - 34.0 pg 11/05/2022 1:02 PM [facility] MCHC 32.8 30.8 - 35.9 g/dL 11/05/2022 1:02 PM [facility] RDW-SD 47.6 36.0 - 50.0 fL 11/05/2022 1:02 [facility] RDW-CV 14.2 11.2 - 14.8 % 11/05/2022 1:02 PM [facility] Platelet Count 344 150 - 400 10? 3 /uL 11/05/2022 1:02 [facility] MPV 10.3 9.4 - 12.9 fL 11/05/2022 1:02 PM [facility] nRBC Absolute 0.00 0 10? 3 /uL 11/05/2022 1:02 PM [facility] nRBC Auto 0.0 0 /100 WBC 11/05/2022 1:02 PM [facility] Neutrophils % 62.1 35.0 - 70.0 % 11/05/2022 1:02 PM [facility] Lymphocytes % 22.5 20.0 - 43.0 % 11/05/2022 1:02 PM [facility] Monocytes % 13.2(H) 5.0 - 13.0 % 11/05/2022 1:02 PM [facility] Eosinophils % 0.9 0.0 - 6.0 % 11/05/2022 1:02 PM [facility] Basophil % 0.6 0.0 - 2.0 % 11/05/2022 1:02 PM [facility] Neutrophils Absolute 4.27 1.60 - 7.00 10? 3 /uL 11/05/2022 1:02 PM [facility] Lymphocyte Absolute 1.55 1.10 - 3.90 10? 3 /uL 11/05/2022 1:02 PM [facility] Monocytes Absolute 0.91 0.26 - 1.07 10? 3 /uL 11/05/2022 1:02 PM [facility] Eosinophils Absolute 0.06 0.00 - 0.47 10? 3 /uL 11/05/2022 1:02 PM [facility] Basophils Absolute 0.04 0.00 - 0.08 10? 3 /uL 11/05/2022 1:02 PM [facility] Immature Granulocytes % 0.7 0.0 - 1.0 % 11/05/2022 1:02 PM [facility] Immature Granulocytes Absolute 0.05 11/05/2022 1:02 PM [facility] Blood BLOOD SPECIMEN / Unknown Venipuncture / Unknown 11/05/2022 12:27 PM CDT 11/05/2022 12:45 PM CDT Emir Vail MD LAB - HEMATOLOGY ORD ERABLES [facility] [address] [place] [address], [facility] [phone] * (ABNORMAL) BASIC METABOLIC PANEL (CALCIUM TOTAL) (11/05/2022 11:24 AM CDT) BUN 8 7 - 26 mg/dL 11/05/2022 11:56 AM [facility] Creatinine 0.54(L) 0.56 - 0.96 mg/dL 11/05/2022 11:56 AM [facility] Sodium 139 136 - 145 mmol/L 11/05/2022 11:56 AM [facility] Potassium 3.8 3.5 - 4.5 mmol/L 11/05/2022 11:56 AM [facility] Chloride 104 98 - 107 mmol/L 11/05/2022 11:56 AM [facility] CO2 23 22 - 29 mmol/L 11/05/2022 11:56 AM [facility] Glucose 101 70 - 115 mg/dL 11/05/2022 11:56 AM [facility] Calcium 8.5 8.4 - 10.2 mg/dL 11/05/2022 11:56 AM [facility] Anion Gap 16 8 - 18 11/05/2022 11:56 AM [facility] BUN/Creatinine Ratio 15 7 - 23 11/05/2022 11:56 AM [facility] Osmolality Calculated 286 270 - 300 mOsm/kg 11/05/2022 11:56 AM [facility] eGFR by CKD-EPI >90 >=90 mL/min/1.7 3 m2 11/05/2022 11:56 AM [facility] Blood BLOOD SPECIMEN / Unknown Venipuncture / Unknown 11/05/2022 11:24 AM CDT 11/05/2022 11:30 AM CDT Emir Vail MD LAB - CHEMISTRY ORDDanyelle BLACKMAN [address] [address], [facility] [phone] * PHOSPHORUS BLOOD (11/05/2022 11:24 AM CDT) Phosphorus 3.2 2.9 - 5.1 mg/dL 11/05/2022 11:56 AM [facility] Blood BLOOD SPECIMEN / Unknown Venipuncture / Unknown 11/05/2022 11:24 AM CDT 11/05/2022 11:30 AM CDT Emir Vail MD LAB - CHEMISTRY BIBIANA BLACKMAN [address] [address], [facility] [phone] * MAGNESIUM BLOOD (11/05/2022 11:24 AM CDT) Magnesium 2.0 1.6 - 2.6 mg/dL 11/05/2022 11:56 AM CDT [facility] Blood BLOOD SPECIMEN / Unknown Venipuncture / Unknown 11/05/2022 11:24 AM CDT 11/05/2022 11:30 AM CDT Emir Vail MD LAB - CHEMISTRY BIBIANA BLACKMAN Performing Organization Address City/[facility]/ZIP Co de Phone Number [address] [address], [place] [phone] * BLOOD GAS ART+LYTES+METAB+COOX POC NOTIF (11/05/2022 11:16 AM CDT) Comment Notification Label Only - See Separate Report 11/05/2022 2:01 PM CDT [facility] Other MISCELLANEOUS SAMPLES / Unknown 11/05/2022 11:16 AM CDT 11/05/2022 12:52 PM CDT Manuel Ramirez MD LAB - BLOOD GASES ORDERABLES Performing Organization Address [facility] Co de Phone Number [address] [address], [place] [phone] * (ABNORMAL) PTT [facility] (11/05/2022 11:15 AM CDT) APTT 48.8(H) 23.0 - 38.4 Seconds 11/05/2022 12:12 PM CDT [facility] Comment:Suggested therapeuti c range for full dose I.V. unfractionated heparin therapy for venous thromboembolism is 71 to 109 seconds. Blood BLOOD SPECIMEN / Unknown Lab Venipuncture / Unknown 11/05/2022 11:15 AM CDT 11/05/2022 11:23 AM CDT Jaime Drew MD LAB - COAGULATION OR DERABLES Performing Organization Address City/[facility]/ZIP Co de Phone Number [address] [address], [place] [phone] * CULTURE BLOOD (11/05/2022 10:54 AM CDT) Culture No growth day 5 ROSELIA 11/10/2022 2:00 PM CDT [facility] Blood PERIPHERAL BLOOD / Unknown Venipuncture / Unknown 11/05/2022 10:54 AM CDT 11/05/2022 11:23 AM CDT Jaime Drew MD LAB - MICROBIOLOGY O RDERABLES [facility] [address] [place] [address], [facility] [phone] * XR CHEST 1VW PORTABLE (11/05/2022 9:37 AM CDT) Anatomical Region Laterality Modality Chest Radiographic Irene ging 11/05/2022 12:2 6 PM CDT Narrative 11/05/2022 2:40 PM CDT PROCEDURE: ??XR CHEST 1VW PORTABLE, DATE/TIME OF EXAM: ??11/05/2022 9:38 AM, LOCATION ??[facility] INDICATION: R50.9: Fever, unspecified fever cause ADDITIONAL CLINICAL INFORMATION: Ordering Provider Reason For Exam: ??consolidation COMPARISON: Chest radiograph 10/29/2022. FINDINGS/IMPRESSION: Previously seen feeding tube has been removed. These no confluent consolidation, pleural effusion, or pneumothorax is noted. The cardiomediastinal silhouette is stable. No acute osseous abnormality is noted. Report dictated by Christopher Tobin MD, MD (president mortgage [employer]). I, HEATHER FREGOSO MD have personally reviewed and interpreted this examination/study. > Interpreting Provider: HEATHER FREGOSO MD on 11/05/2022 2:40 PM Procedure Note Heather Fregoso MD - 11/05/2022 PROCEDURE: XR CHEST 1VW PORTABLE, DATE/TIME OF EXAM: 11/05/2022 9:38AM, LOCATION [facility] INDICATION: R50.9: Fever, unspecified fever cause ADDITIONAL CLINICAL INFORMATION: Ordering Provider Reason For Exam: consolidation COMPARISON: Chest radiograph 10/29/2022. FINDINGS/IMPRESSION: Previously seen feeding tube has been removed. These no confluent consolidation, pleural effusion, or pneumothorax is noted. The cardiomediastinal silhouette is stable. No acute osseous abnormality is noted. Report dictated by Christopher Tobin MD, MD (president mortgage company). I, HEATHER FREGOSO MD have personally reviewed and interpreted this examination/study. > Interpreting Provider: HEATHER FREGOSO MD on 11/05/2022 2:40 PM Jaime Drew MD DIAGNOSTIC IMAGING O RDERABLES * (ABNORMAL) PTT [facility] (11/05/2022 3:50 AM CDT) APTT 77.4(H) 23.0 - 38.4 Seconds 11/05/2022 4:51 AM CDT [facility] Comment:Suggested therapeuti c range for full dose I.V. unfractionated heparin therapy for venous thromboembolism is 71 to 109 seconds. Blood BLOOD SPECIMEN / Unknown Lab Venipuncture / Unknown 11/05/2022 3:50 AM CDT 11/05/2022 4:35 AM CDT Jaime Drew MD LAB - COAGULATION OR DERABLES [facility] [address] [place] [address], [facility] [phone] * (ABNORMAL) PT-INR [facility] (11/05/2022 3:50 AM CDT) PT 15.5(H) 12.1 - 14.8 Seconds 11/05/2022 4:51 AM CDT [facility] INR 1.3 See Comment 11/05/2022 4:51 AM CDT [facility] Comment:The suggested therap eutic range for standard coumadin (warfarin) therapy is an INR of 2.0-3.0. For high-risk patients (Mechanical Mitral Valve Prosthesis, etc.), the suggested prophylactic therapeutic range is an INR of 2.5-3.5. Blood BLOOD SPECIMEN / Unknown Lab Venipuncture / Unknown 11/05/2022 3:50 AM CDT 11/05/2022 4:35 AM CDT Emir Vail MD LAB - COAGULATION OR DERABLES [place] [place] [address], [facility] [phone] * CT HEAD WO CONTRAST (11/05/2022 12:11 [...] Walter MD CT ORDERABLES * (ABNORMAL) PTT [facility] (11/04/2022 9:28 PM CDT) APTT 53.3(H) 23.0 - 38.4 Seconds 11/04/2022 9:50 PM CDT [facility] Comment:Suggested therapeuti c range for full dose I.V. unfractionated heparin therapy for venous thromboembolism is 71 to 109 seconds. Blood BLOOD SPECIMEN / Unknown Lab Venipuncture / Unknown 11/04/2022 9:28 PM CDT 11/04/2022 9:32 PM CDT Jim Walter MD LAB - COAGULATION O RDERABLES [facility] [address] [place] [address], [facility] [phone] * (ABNORMAL) BASIC METABOLIC PANEL (CALCIUM TOTAL) (11/04/2022 9:28 PM CDT) Pathologist [facility] BUN 8 7 - 26 mg/dL 11/04/2022 9:57 PM T [facility] Creatinine 0.55(L) 0.56 - 0.96 mg/dL 11/04/2022 9:57 PM [facility] Sodium 141 136 - 145 mmol/L 11/04/2022 9:57 PM [facility] Potassium 3.7 3.5 - 4.5 mmol/L 11/04/2022 9:57 PM [facility] Chloride 106 98 - 107 mmol/L 11/04/2022 9:57 PM [facility] CO2 25 22 - 29 mmol/L 11/04/2022 9:57 PM [facility] Glucose 106 70 - 115 mg/dL 11/04/2022 9:57 PM [facility] Calcium 8.3(L) 8.4 - 10.2 mg/dL 11/04/2022 9:57 PM [facility] Anion Gap 14 8 - 18 11/04/2022 9:57 PM [facility] BUN/Creatinine Ratio 15 7 - 23 11/04/2022 9:57 PM [facility] Osmolality Calculated 291 270 - 300 mOsm/kg 11/04/2022 9:57 PM [facility] eGFR by CKD-EPI >90 >=90 mL/min/1.7 3 m2 11/04/2022 9:57 PM [facility] Blood BLOOD SPECIMEN / Unknown Lab Venipuncture / Unknown 11/04/2022 9:28 PM CDT 11/04/2022 9:33 PM CDT Emir Vail MD LAB - [facility]MISTRY [facility] Organization Address City/State/ZIP Co de Phone Number [facility] [address] [place] [address], [facility] [phone] * (ABNORMAL) CBC W AUTO DIFFERENTIAL (11/04/2022 9:28 PM CDT) WBC 8.4 3.5 - 10.5 10? 3 /uL 11/04/2022 9:36 PM [facility] RBC 3.73(L) 3.80 - 5.20 10? 6 /uL 11/04/2022 9:36 PM [facility] Hemoglobin 10.9(L) 12.0 - 15.6 g/dL 11/04/2022 9:36 PM [facility] Hematocrit 34.6(L) 35.0 - 45.0 % 11/04/2022 9:36 PM [facility] MCV 92.8 80.7 - 98.3 fL 11/04/2022 9:36 PM [facility] MCH 29.2 26.7 - 34.0 pg 11/04/2022 9:36 PM [facility] MCHC 31.5 30.8 - 35.9 g/dL 11/04/2022 9:36 PM [facility] RDW-SD 47.6 36.0 - 50.0 fL 11/04/2022 9:36 PM [facility] RDW-CV 14.0 11.2 - 14.8 % 11/04/2022 9:36 PM [facility] Platelet Count 383 150 - 400 10? 3 /uL 11/04/2022 9:36 PM [facility] MPV 9.9 9.4 - 12.9 fL 11/04/2022 9:36 PM [facility] nRBC Absolute 0.00 0 10? 3 /uL 11/04/2022 9:36 PM [facility] nRBC Auto 0.0 0 /100 WBC 11/04/2022 9:36 PM [facility] Neutrophils % 62.2 35.0 - 70.0 % 11/04/2022 9:36 PM [facility] Lymphocytes % 22.7 20.0 - 43.0 % 11/04/2022 9:36 PM [facility] Monocytes % 12.8 5.0 - 13.0 % 11/04/2022 9:36 PM [facility] Eosinophils % 0.7 0.0 - 6.0 % 11/04/2022 9:36 PM [facility] Basophil % 0.6 0.0 - 2.0 % 11/04/2022 9:36 PM [facility] Neutrophils Absolute 5.22 1.60 - 7.00 10? 3 /uL 11/04/2022 9:36 PM [facility] Lymphocyte Absolute 1.90 1.10 - 3.90 10? 3 /uL 11/04/2022 9:36 PM [facility] Monocytes Absolute 1.07 0.26 - 1.07 10? 3 /uL 11/04/2022 9:36 PM [facility] Eosinophils Absolute 0.06 0.00 - 0.47 10? 3 /uL 11/04/2022 9:36 PM [facility] Basophils Absolute 0.05 0.00 - 0.08 10? 3 /uL 11/04/2022 9:36 PM [facility] Immature Granulocytes % 1.0 0.0 - 1.0 % 11/04/2022 9:36 PM [facility] Immature Granulocytes Absolute 0.08 11/04/2022 9:36 PM [facility] Blood BLOOD SPECIMEN / Unknown Lab Venipuncture / Unknown 11/04/2022 9:28 PM CDT 11/04/2022 9:33 PM CDT Emir Vail MD LAB - HEMATOLOGY [place] [place] [address] [address], [place] [phone] * PHOSPHORUS BLOOD (11/04/2022 9:28 PM CDT) Phosphorus 3.4 2.9 - 5.1 mg/dL 11/04/2022 9:58 PM CDT [facility] Blood BLOOD SPECIMEN / Unknown Lab Venipuncture / Unknown 11/04/2022 9:28 PM CDT 11/04/2022 9:33 PM CDT Emir Vail MD LAB - CHEMISTRY [facility] Performing Organization Address City/[facility]/ZIP Co de Phone Number [address] [address], [place] [phone] * MAGNESIUM BLOOD (11/04/2022 9:28 PM CDT) Magnesium 2.3 1.6 - 2.6 mg/dL 11/04/2022 9:57 PM CDT [facility] Blood BLOOD SPECIMEN / Unknown Lab Venipuncture / Unknown 11/04/2022 9:28 PM CDT 11/04/2022 9:33 PM CDT Emir Vail MD LAB - CHEMISTRY [facility] Performing Organization Address City/[facility]/ZIP Co de Phone Number [address] [address], [place] [phone] * (ABNORMAL) PTT [facility] (11/04/2022 4:17 PM CDT) APTT 131.0(HH) 23.0 - 38.4 Seconds 11/04/2022 4:47 PM CDT [facility] Comment:Suggested therapeuti c range for full dose I.V. unfractionated heparin therapy for venous thromboembolism is 71 to 109 seconds. Blood BLOOD SPECIMEN / Unknown Lab Venipuncture / Unknown 11/04/2022 4:17 PM CDT 11/04/2022 4:22 PM CDT Jim Walter MD LAB - COAGULATION O RDERABLES Performing Organization Address City/[facility]/ZIP Co de Phone Number [address] [address], [place] [phone] * (ABNORMAL) PTT [facility] (11/04/2022 9:31 AM CDT) APTT 53.0(H) 23.0 - 38.4 Seconds 11/04/2022 10:55 AM CDT [facility] Comment:Suggested therapeuti c range for full dose I.V. unfractionated heparin therapy for venous thromboembolism is 71 to 109 seconds. Blood BLOOD SPECIMEN / Unknown Lab Venipuncture / Unknown 11/04/2022 9:31 AM CDT 11/04/2022 10:39 AM CDT Jim Walter MD LAB - COAGULATION O RDERABLES Performing Organization Address [facility]/ZIP Co de Phone Number [address] [address], [place] [phone] * VANCOMYCIN LEVEL TROUGH (11/04/2022 9:31 AM CDT) Vancomycin Trough 15.3 10.0 - 20.0 ug/mL 11/04/2022 11:04 AM CDT [facility] Blood BLOOD SPECIMEN / Unknown Lab Venipuncture / Unknown 11/04/2022 9:31 AM CDT 11/04/2022 10:39 AM CDT Narrative [facility] - 11/04/2022 11:04 AM CDT See institution protocol. Jim Walter MD LAB - CHEMISTRY ORD ERABLES Performing Organization Address City/[facility]/ZIP Co de Phone Number [address] [address], [facility] [phone] * PT-INR [facility] (11/04/2022 5:53 AM CDT) PT 14.5 12.1 - 14.8 Seconds 11/04/2022 6:15 AM CDT [facility] INR 1.1 See Comment 11/04/2022 6:15 AM CDT [facility] Comment:The suggested therap eutic range for standard coumadin (warfarin) therapy is an INR of 2.0-3.0. For high-risk patients (Mechanical Mitral Valve Prosthesis, etc.), the suggested prophylactic therapeutic range is an INR of 2.5-3.5. Blood BLOOD SPECIMEN / Unknown Lab Venipuncture / Unknown 11/04/2022 5:53 AM CDT 11/04/2022 5:59 AM CDT Jim Walter MD LAB - COAGULATION O RDERABLES [address] [address], [facility] [phone] * PHOSPHORUS BLOOD (11/04/2022 5:53 AM CDT) Phosphorus 3.8 2.9 - 5.1 mg/dL 11/04/2022 6:34 AM CDT [facility] Blood BLOOD SPECIMEN / Unknown Lab Venipuncture / Unknown 11/04/2022 5:53 AM CDT 11/04/2022 6:05 AM CDT Jim Walter MD LAB - CHEMISTRY ORD ERABLES [address] [address], [facility] [phone] * MAGNESIUM BLOOD (11/04/2022 5:53 AM CDT) Magnesium 2.0 1.6 - 2.6 mg/dL 11/04/2022 6:34 AM CDT [facility] Blood BLOOD SPECIMEN / Unknown Lab Venipuncture / Unknown 11/04/2022 5:53 AM CDT 11/04/2022 6:05 AM CDT Jim Walter MD LAB - CHEMISTRY ORD ERABLES [facility] [address] [place] [address], [facility] [phone] * (ABNORMAL) BASIC METABOLIC PANEL (CALCIUM TOTAL) (11/04/2022 5:53 AM CDT) BUN 9 7 - 26 mg/dL 11/04/2022 6:34 AM [facility] Creatinine 0.56 0.56 - 0.96 mg/dL 11/04/2022 6:34 AM [facility] Sodium 139 136 - 145 mmol/L 11/04/2022 6:34 AM [facility] Potassium 3.6 3.5 - 4.5 mmol/L 11/04/2022 6:34 AM [facility] Chloride 104 98 - 107 mmol/L 11/04/2022 6:34 AM [facility] CO2 25 22 - 29 mmol/L 11/04/2022 6:34 AM [facility] Glucose 133(H) 70 - 115 mg/dL 11/04/2022 6:34 AM [facility] Calcium 8.6 8.4 - 10.2 mg/dL 11/04/2022 6:34 AM [facility] Anion Gap 14 8 - 18 11/04/2022 6:34 AM [facility] BUN/Creatinine Ratio 16 7 - 23 11/04/2022 6:34 AM [facility] Osmolality Calculated 289 270 - 300 mOsm/kg 11/04/2022 6:34 AM [facility] eGFR by CKD-EPI >90 >=90 mL/min/1.7 3 m2 11/04/2022 6:34 AM [facility] Blood BLOOD SPECIMEN / Unknown Lab Venipuncture / Unknown 11/04/2022 5:53 AM CDT 11/04/2022 6:05 AM CDT Jim Walter MD LAB - CHEMISTRY ORD ERABLES Performing Organization Address [facility]/ZIP Co de Phone Number [address] [address], [facility] [phone] * (ABNORMAL) PTT [facility] (11/04/2022 5:53 AM CDT) APTT 96.7(H) 23.0 - 38.4 Seconds 11/04/2022 6:15 AM CDT [facility] Comment:Suggested therapeuti c range for full dose I.V. unfractionated heparin therapy for venous thromboembolism is 71 to 109 seconds. Blood BLOOD SPECIMEN / Unknown Lab Venipuncture / Unknown 11/04/2022 5:53 AM CDT 11/04/2022 5:59 AM CDT Jim Walter MD LAB - COAGULATION O RDERABLES Performing Organization Address [facility] de Phone Number [address] [address], [facility] [phone] * PT-INR [facility] (11/03/2022 11:53 PM CDT) PT 14.2 12.1 - 14.8 Seconds 11/04/2022 12:45 AM CDT [facility] INR 1.1 See Comment 11/04/2022 12:45 AM CDT [facility] Comment:The suggested therap eutic range for standard coumadin (warfarin) therapy is an INR of 2.0-3.0. For high-risk patients (Mechanical Mitral Valve Prosthesis, etc.), the suggested prophylactic therapeutic range is an INR of 2.5-3.5. Blood BLOOD SPECIMEN / Unknown Venipuncture / Unknown 11/03/2022 11:53 PM CDT 11/04/2022 12:00 AM CDT Emir Vail MD LAB - COAGULATION OR DERABLES Performing Organization Address [facility]/ZIP Co de Phone Number [address] [address], [facility] [phone] * (ABNORMAL) PTT [facility] (11/03/2022 11:53 PM CDT) APTT 77.9(H) 23.0 - 38.4 Seconds 11/04/2022 12:45 AM CDT [facility] Comment:Suggested therapeuti c range for full dose I.V. unfractionated heparin therapy for venous thromboembolism is 71 to 109 seconds. Blood BLOOD SPECIMEN / Unknown Venipuncture / Unknown 11/03/2022 11:53 PM CDT 11/04/2022 12:00 AM CDT Jim Walter MD LAB - COAGULATION O DIONI Performing Organization Address [facility] Co de Phone Number [address] [address], [facility] [phone] * (ABNORMAL) PTT [facility] (11/03/2022 4:26 PM CDT) APTT 58.8(H) 23.0 - 38.4 Seconds 11/03/2022 5:58 PM CDT [facility] Comment:Suggested therapeuti c range for full dose I.V. unfractionated heparin therapy for venous thromboembolism is 71 to 109 seconds. Blood BLOOD SPECIMEN / Unknown Lab Venipuncture / Unknown 11/03/2022 4:26 PM CDT 11/03/2022 5:37 PM CDT Jim Walter MD LAB - COAGULATION Umm WHEATLEY Performing Organization Address [facility]/ZIP Co de Phone Number [address] [address], [place] [phone] * (ABNORMAL) PTT [facility] (11/03/2022 10:48 AM CDT) APTT 84.5(H) 23.0 - 38.4 Seconds 11/03/2022 11:33 AM CDT [facility] Comment:Suggested therapeuti c range for full dose I.V. unfractionated heparin therapy for venous thromboembolism is 71 to 109 seconds. Blood BLOOD SPECIMEN / Unknown Lab Venipuncture / Unknown 11/03/2022 10:48 AM CDT 11/03/2022 10:55 AM CDT Jim Walter MD LAB - COAGULATION O RDERABLES [facility] [address] [place] [address], [place] [phone] * (ABNORMAL) GLUCOSE - POINT OF CARE (11/03/2022 5:20 AM CDT) Glucose WB/POC 126(H) 70 - 115 mg/dL 11/03/2022 4:58 PM CDT [facility] Specimen Type Cap Fingerstick 2022 4:58 PM CDT [facility] Blood BLOOD SPECIMEN / Unknown 11/03/2022 5:20 AM CDT 11/03/2022 4:58 PM CDT Jim Walter MD LAB - POINT OF CARE ORDERABLES Performing Organization Address [facility]/ZIP Co de Phone Number [address] [address], [place] [phone] * (ABNORMAL) PTT [facility] (11/03/2022 4:49 AM CDT) APTT 89.3(H) 23.0 - 38.4 Seconds 11/03/2022 5:35 AM CDT [facility] Comment:Suggested therapeuti c range for full dose I.V. unfractionated heparin therapy for venous thromboembolism is 71 to 109 seconds. Blood BLOOD SPECIMEN / Unknown Venipuncture / Unknown 11/03/2022 4:49 AM CDT 11/03/2022 5:04 AM CDT Jim Walter MD LAB - COAGULATION O DIONI Performing Organization Address City/[facility]/ZIP Co de Phone Number [address] [address], [place] [phone] * (ABNORMAL) PT-INR [facility] (11/03/2022 4:49 AM CDT) PT 15.1(H) 12.1 - 14.8 Seconds 11/03/2022 5:35 AM T [facility] INR 1.2 See Comment 11/03/2022 5:35 AM [facility] Comment:The suggested therap eutic range for standard coumadin (warfarin) therapy is an INR of 2.0-3.0. For high-risk patients (Mechanical Mitral Valve Prosthesis, etc.), the suggested prophylactic therapeutic range is an INR of 2.5-3.5. Blood BLOOD SPECIMEN / Unknown Venipuncture / Unknown 11/03/2022 4:49 AM CDT 11/03/2022 5:05 AM CDT Emir Vail MD LAB - COAGULATION OR DERABLES Performing Organization Address [facility] Co de Phone Number [address] [address] [phone] * (ABNORMAL) BASIC METABOLIC PANEL (CALCIUM TOTAL) (11/02/2022 10:21 PM CDT) BUN 11 7 - 26 mg/dL 11/02/2022 11:04 PM [facility] Creatinine 0.55(L) 0.56 - 0.96 mg/dL 11/02/2022 11:04 PM [facility] Sodium 138 136 - 145 mmol/L 11/02/2022 11:04 PM [facility] Potassium 3.9 3.5 - 4.5 mmol/L 11/02/2022 11:04 PM [facility] Chloride 103 98 - 107 mmol/L 11/02/2022 11:04 PM [facility] CO2 23 22 - 29 mmol/L 11/02/2022 11:04 PM [facility] Glucose 101 70 - 115 mg/dL 11/02/2022 11:04 PM [facility] Calcium 8.9 8.4 - 10.2 mg/dL 11/02/2022 11:04 PM [facility] Anion Gap 16 8 - 18 11/02/2022 11:04 PM [facility] BUN/Creatinine Ratio 20 7 - 23 11/02/2022 11:04 PM [facility] Osmolality Calculated 286 270 - 300 mOsm/kg 11/02/2022 11:04 PM [facility] eGFR by CKD-EPI >90 >=90 mL/min/1.7 3 m2 11/02/2022 11:04 PM [facility] Blood BLOOD SPECIMEN / Unknown Venipuncture / Unknown 11/02/2022 10:21 PM CDT 11/02/2022 10:37 PM CDT Emir Vail MD LAB - CHEMISTRY ANKURE HIRAL [facility] Organization Address City/State/ZIP Co de Phone Number [facility] [address] [place] [address], [facility] [phone] * (ABNORMAL) CBC W AUTO DIFFERENTIAL (11/02/2022 10:21 PM CDT) WBC 13.3(H) 3.5 - 10.5 10? 3 /uL 11/02/2022 10:59 PM [facility] RBC 3.44(L) 3.80 - 5.20 10? 6 /uL 11/02/2022 10:59 PM [facility] Hemoglobin 10.3(L) 12.0 - 15.6 g/dL 11/02/2022 10:59 PM [facility] Hematocrit 32.0(L) 35.0 - 45.0 % 11/02/2022 10:59 PM [facility] MCV 93.0 80.7 - 98.3 fL 11/02/2022 10:59 PM [facility] MCH 29.9 26.7 - 34.0 pg 11/02/2022 10:59 PM [facility] MCHC 32.2 30.8 - 35.9 g/dL 11/02/2022 10:59 PM [facility] RDW-SD 48.5 36.0 - 50.0 fL 11/02/2022 10:59 PM [facility] RDW-CV 14.4 11.2 - 14.8 % 11/02/2022 10:59 PM [facility] Platelet Count 405(H) 150 - 400 10? 3 /uL 11/02/2022 10:59 PM [facility] MPV 10.4 9.4 - 12.9 fL 11/02/2022 10:59 PM [facility] nRBC Absolute 0.00 0 10? 3 /uL 11/02/2022 10:59 PM [facility] nRBC Auto 0.0 0 /100 WBC 11/02/2022 10:59 PM [facility] Neutrophils % 69.8 35.0 - 70.0 % 11/02/2022 10:59 PM [facility] Lymphocytes % 17.3(L) 20.0 - 43.0 % 11/02/2022 10:59 PM [facility] Monocytes % 8.0 5.0 - 13.0 % 11/02/2022 10:59 PM [facility] Eosinophils % 3.4 0.0 - 6.0 % 11/02/2022 10:59 PM [facility] Basophil % 0.5 0.0 - 2.0 % 11/02/2022 10:59 PM [facility] Neutrophils Absolute 9.29(H) 1.60 - 7.00 10? 3 /uL 11/02/2022 10:59 PM [facility] Lymphocyte Absolute 2.30 1.10 - 3.90 10? 3 /uL 11/02/2022 10:59 PM [facility] Monocytes Absolute 1.07 0.26 - 1.07 10? 3 /uL 11/02/2022 10:59 PM [facility] Eosinophils Absolute 0.45 0.00 - 0.47 10? 3 /uL 11/02/2022 10:59 PM [facility] Basophils Absolute 0.06 0.00 - 0.08 10? 3 /uL 11/02/2022 10:59 PM [facility] Immature Granulocytes % 1.0 0.0 - 1.0 % 11/02/2022 10:59 PM [facility] Immature Granulocytes Absolute 0.13 11/02/2022 10:59 PM [facility] Blood BLOOD SPECIMEN / Unknown Venipuncture / Unknown 11/02/2022 10:21 PM CDT 11/02/2022 10:36 PM CDT Emir Vail MD LAB - HEMATOLOGY ANKUR COCHRAN [facility] [address] [place] [address], [place] [phone] * PHOSPHORUS BLOOD (11/02/2022 10:21 PM CDT) Phosphorus 4.2 2.9 - 5.1 mg/dL 11/02/2022 11:04 PM CDT [facility] Blood BLOOD SPECIMEN / Unknown Venipuncture / Unknown 11/02/2022 10:21 PM CDT 11/02/2022 10:37 PM CDT Emir Vail MD LAB - CHEMISTRY BIBIANA BLACKMAN Performing Organization Address City/[facility]/ZIP Co de Phone Number [facility] [address] [place] [address], [place] [phone] * MAGNESIUM BLOOD (11/02/2022 10:21 PM CDT) Magnesium 1.9 1.6 - 2.6 mg/dL 11/02/2022 11:04 PM CDT [facility] Blood BLOOD SPECIMEN / Unknown Venipuncture / Unknown 11/02/2022 10:21 PM CDT 11/02/2022 10:37 PM CDT Emir Vail MD LAB - CHEMISTRY BIB[place]NA BLACKMAN [address] [address], [place] [phone] * (ABNORMAL) PTT [facility] (11/02/2022 10:21 PM CDT) APTT 58.3(H) 23.0 - 38.4 Seconds 11/02/2022 11:01 PM CDT [facility] Comment:Suggested therapeuti c range for full dose I.V. unfractionated heparin therapy for venous thromboembolism is 71 to 109 seconds. Blood BLOOD SPECIMEN / Unknown Venipuncture / Unknown 11/02/2022 10:21 PM CDT 11/02/2022 10:36 PM CDT Jim Walter MD LAB - COAGULATION O DIONI [address] [address], [facility] [phone] * (ABNORMAL) PTT [facility] (11/02/2022 4:37 PM CDT) APTT 69.8(H) 23.0 - 38.4 Seconds 11/02/2022 5:19 PM CDT [facility] Comment:Suggested therapeuti c range for full dose I.V. unfractionated heparin therapy for venous thromboembolism is 71 to 109 seconds. Blood BLOOD SPECIMEN / Unknown Lab Venipuncture / Unknown 11/02/2022 4:37 PM CDT 11/02/2022 4:52 PM CDT Jim Walter MD LAB - COAGULATION O DIONI Performing Organization Address City/[facility]/ZIP Co de Phone Number [address] [address], [place] [phone] * (ABNORMAL) PTT [facility] (11/02/2022 11:12 AM CDT) APTT 54.9(H) 23.0 - 38.4 Seconds 11/02/2022 11:57 AM CDT [facility] Comment:Suggested therapeuti c range for full dose I.V. unfractionated heparin therapy for venous thromboembolism is 71 to 109 seconds. Blood BLOOD SPECIMEN / Unknown Lab Venipuncture / Unknown 11/02/2022 11:12 AM CDT 11/02/2022 11:32 AM CDT Jim Walter MD LAB - COAGULATION O DIONI [facility] [address] [place] [address], [facility] [phone] * VANCOMYCIN LEVEL TROUGH (11/02/2022 9:17 AM CDT) [facility] Vancomycin Trough 13.2 10.0 - 20.0 ug/mL 11/02/2022 10:35 AM CDT [facility] Blood BLOOD SPECIMEN / Unknown Venipuncture / Unknown 11/02/2022 9:17 AM CDT 11/02/2022 9:20 AM CDT Narrative [facility] - 11/02/2022 10:35 AM CDT See institution protocol. Dary Garvey MD LAB - CHEMISTRY BIBIANA BLACKMAN Performing Organization Address [facility]/ZIP Co de Phone Number [address] [address], [facility] [phone] * (ABNORMAL) PTT [facility] (11/02/2022 4:45 AM CDT) [facility] APTT 52.5(H) 23.0 - 38.4 Seconds 11/02/2022 5:20 AM CDT [facility] Comment:Suggested therapeuti c range for full dose I.V. unfractionated heparin therapy for venous thromboembolism is 71 to 109 seconds. Blood BLOOD SPECIMEN / Unknown Venipuncture / Unknown 11/02/2022 4:45 AM CDT 11/02/2022 4:59 AM CDT Jim Walter MD LAB - COAGULATION O RDERAJESSE [address] [address], [place] [phone] * HEPATITIS C AB SCREEN RFLX NAAT QUANT (11/02/2022 4:45 AM CDT) [facility] Hepatitis C Antibody Non-react tiffany Non-reac tive 11/02/2022 5:56 AM CDT [facility] Comment:Hepatitis C Antibody screen indicates [...] - CHEMISTRY ORD ERABLES Performing Organization Address City/[facility] Co de Phone Number [address] [address], [facility] [phone] * (ABNORMAL) HEPATITIS B PANEL (11/02/2022 4:45 AM CDT) Hepatitis B Virus Surface Antibody Reactive(A ) Non-react tiffany 11/02/2022 5:55 AM CDT [facility] Comment: > 12 mIU/mL Hepatitis B surface Antibody (HBsAb). Reactive for HBsAb - individual is considered immune to Hepatitis B Virus infection. Hepatitis B Virus Surface Antigen Non-reacti ve Non-react tiffany 11/02/2022 5:55 AM CDT [facility] Hepatitis B Core Virus Antibody IgM Non-reacti ve Non-react tiffany 11/02/2022 5:55 AM CDT [facility] Blood BLOOD SPECIMEN / Unknown Venipuncture / Unknown 11/02/2022 4:45 AM CDT 11/02/2022 4:56 AM CDT Jim Walter MD LAB - CHEMISTRY ORD ERABLES Performing Organization Address City/[facility]/ZIP Co de Phone Number [address] [address], [facility] [phone] * EXPOSURE HIV (11/02/2022 4:45 AM CDT) HIV Antigen/Antibo dy 1 & 2 Non-reacti ve Non-reacti ve 11/02/2022 5:56 AM CDT [facility] Blood BLOOD SPECIMEN / Unknown Venipuncture / Unknown 11/02/2022 4:45 AM CDT 11/02/2022 4:56 AM CDT Jim Walter MD LAB - CHEMISTRY ORD ERABLES Performing Organization Address [facility] Co de Phone Number [address] [address], [facility] [phone] * (ABNORMAL) PTT [facility] (11/02/2022 1:32 AM CDT) APTT 48.3(H) 23.0 - 38.4 Seconds 11/02/2022 2:53 AM CDT [facility] Comment:Suggested therapeuti c range for full dose I.V. unfractionated heparin therapy for venous thromboembolism is 71 to 109 seconds. Blood BLOOD SPECIMEN / Unknown Lab Venipuncture / Unknown 11/02/2022 1:32 AM CDT 11/02/2022 2:14 AM CDT Jim Walter MD LAB - COAGULATION O RDERABLES Performing Organization Address [facility] Co de Phone Number [address] [address], [place] [phone] * (ABNORMAL) PT-INR [facility] (11/02/2022 1:32 AM CDT) PT 15.1(H) 12.1 - 14.8 Seconds 11/02/2022 2:53 AM CDT [facility] INR 1.2 See Comment 11/02/2022 2:53 AM CDT [facility] Comment:The suggested therap eutic range for standard coumadin (warfarin) therapy is an INR of 2.0-3.0. For high-risk patients (Mechanical Mitral Valve Prosthesis, etc.), the suggested prophylactic therapeutic range is an INR of 2.5-3.5. Blood BLOOD SPECIMEN / Unknown Lab Venipuncture / Unknown 11/02/2022 1:32 AM CDT 11/02/2022 2:14 AM CDT Emir Vail MD LAB - COAGULATION OR DERABLES Performing Organization Address [facility] Co de Phone Number [address] [place] [address], [facility] [phone] * (ABNORMAL) BASIC METABOLIC PANEL (CALCIUM TOTAL) (11/02/2022 1:32 AM CDT) BUN 10 7 - 26 mg/dL 11/02/2022 2:44 AM [facility] Creatinine 0.48(L) 0.56 - 0.96 mg/dL 11/02/2022 2:44 AM [facility] Sodium 138 136 - 145 mmol/L 11/02/2022 2:44 AM [facility] Potassium 4.1 3.5 - 4.5 mmol/L 11/02/2022 2:44 AM [facility] Chloride 108(H) 98 - 107 mmol/L 11/02/2022 2:44 AM [facility] CO2 22 22 - 29 mmol/L 11/02/2022 2:44 AM [facility] Glucose 96 70 - 115 mg/dL 11/02/2022 2:44 AM [facility] Calcium 8.6 8.4 - 10.2 mg/dL 11/02/2022 2:44 AM [facility] Anion Gap 12 8 - 18 11/02/2022 2:44 AM [facility] BUN/Creatinine Ratio 21 7 - 23 11/02/2022 2:44 AM [facility] Osmolality Calculated 285 270 - 300 mOsm/kg 11/02/2022 2:44 AM [facility] eGFR by CKD-EPI >90 >=90 mL/min/1.7 3 m2 11/02/2022 2:44 AM [facility] Blood BLOOD SPECIMEN / Unknown Lab Venipuncture / Unknown 11/02/2022 1:32 AM CDT 11/02/2022 2:16 AM CDT Emir Vail MD LAB - CHEMISTRY BIBIANA BLACKMAN [facility] Organization Address City/State/ZIP Co de Phone Number [address] [address], [facility] [phone] * (ABNORMAL) CBC W AUTO DIFFERENTIAL (11/02/2022 1:32 AM CDT) WBC 19.3(H) 3.5 - 10.5 10? 3 /uL 11/02/2022 2:22 AM [facility] RBC 3.32(L) 3.80 - 5.20 10? 6 /uL 11/02/2022 2:22 AM [facility] Hemoglobin 10.0(L) 12.0 - 15.6 g/dL 11/02/2022 2:22 AM [facility] Hematocrit 31.1(L) 35.0 - 45.0 % 11/02/2022 2:22 AM [facility] MCV 93.7 80.7 - 98.3 fL 11/02/2022 2:22 AM [facility] MCH 30.1 26.7 - 34.0 pg 11/02/2022 2:22 AM [facility] MCHC 32.2 30.8 - 35.9 g/dL 11/02/2022 2:22 AM [facility] RDW-SD 49.4 36.0 - 50.0 fL 11/02/2022 2:22 AM [facility] RDW-CV 14.7 11.2 - 14.8 % 11/02/2022 2:22 AM [facility] Platelet Count 400 150 - 400 10? 3 /uL 11/02/2022 2:22 AM [facility] MPV 10.1 9.4 - 12.9 fL 11/02/2022 2:22 AM [facility] nRBC Absolute 0.02(H) 0 10? 3 /uL 11/02/2022 2:22 AM [facility] nRBC Auto 0.1(H) 0 /100 WBC 11/02/2022 2:22 AM [facility] Neutrophils % 76.4(H) 35.0 - 70.0 % 11/02/2022 2:22 AM [facility] Lymphocytes % 13.4(L) 20.0 - 43.0 % 11/02/2022 2:22 AM [facility] Monocytes % 7.3 5.0 - 13.0 % 11/02/2022 2:22 AM CDT [facility] Eosinophils % 1.4 0.0 - 6.0 % 11/02/2022 2:22 AM T [facility] Basophil % 0.3 0.0 - 2.0 % 11/02/2022 2:22 AM CDT [facility] Neutrophils Absolute 14.73(H) 1.60 - 7.00 10? 3 /uL 11/02/2022 2:22 AM CDT [facility] Lymphocyte Absolute 2.59 1.10 - 3.90 10? 3 /uL 11/02/2022 2:22 AM T [facility] Monocytes Absolute 1.40(H) 0.26 - 1.07 10? 3 /uL 11/02/2022 2:22 AM T [facility] Eosinophils Absolute 0.27 0.00 - 0.47 10? 3 /uL 11/02/2022 2:22 AM T [facility] Basophils Absolute 0.06 0.00 - 0.08 10? 3 /uL 11/02/2022 2:22 AM [facility] Immature Granulocytes % 1.2(H) 0.0 - 1.0 % 11/02/2022 2:22 AM T [facility] Immature Granulocytes Absolute 0.23 11/02/2022 2:22 AM [facility] Blood BLOOD SPECIMEN / Unknown Lab Venipuncture / Unknown 11/02/2022 1:32 AM CDT 11/02/2022 2:17 AM CDT Emir Vail MD LAB - HEMATOLOGY ORD ERABLES Performing Organization Address City/State/[facility] Co de Phone Number [facility] [address] [place] [address], [facility] [phone] * PHOSPHORUS BLOOD (11/02/2022 1:32 AM CDT) Phosphorus 4.5 2.9 - 5.1 mg/dL 11/02/2022 2:44 AM T [facility] Blood BLOOD SPECIMEN / Unknown Lab Venipuncture / Unknown 11/02/2022 1:32 AM CDT 11/02/2022 2:16 AM CDT Emir Vail MD LAB - CHEMISTRY [place] Performing Organization Address City/[facility]/ZIP Co de Phone Number [address] [address], [place] [phone] * MAGNESIUM BLOOD (11/02/2022 1:32 AM CDT) Magnesium 2.0 1.6 - 2.6 mg/dL 11/02/2022 2:44 AM CDT [facility] Blood BLOOD SPECIMEN / Unknown Lab Venipuncture / Unknown 11/02/2022 1:32 AM CDT 11/02/2022 2:16 AM CDT Emir Vail MD LAB - CHEMISTRY [place] [address] [address], [place] [phone] * PREPARE (CROSSMATCH) RBC UNIT(S), 3 Units (11/02/2022 1:17 AM CDT) Unit Description N/A [facility] Blood Bank BLOOD SPECIMEN / Unknown 10/29/2022 11:32 AM CDT Valdez Clay MD LAB - BLOOD BANK O RDERABLES Performing Organization Address City/[facility]/ZIP Co de Phone Number [facility] [address] [place] [id number], [place] [phone] * PREPARE (CROSSMATCH) RBC UNIT(S), 2 Units (11/02/2022 1:17 AM CDT) Unit Description AS1 LR PRBC [facility] Unit ABO B [facility] Unit Rh POS [facility] Product Number R02 [facility] Unit Donor # [id number] [facility] Unit Status released [facility] BLOO D [facility]ANK LAB Product Code [id number] [facility] Blood Type Barcode 7300 [facility] Expiration Date [facility] Unit Description AS1 LR PRBC [facility] B[facility]OD [facility] LAB Unit ABO B [facility] Unit Rh POS [facility] Product Number R02 [facility] B LO[facility] Unit Donor # [id number] [facility] Unit Status transfused [facility] BLO OD [facility] Product Code [id number] [facility] OD [facility]ANK LAB Blood Type Barcode 7300 [facility] LAB Expiration Date [facility] B[facility]OD [facility] Blood Bank BLOOD SPECIMEN / Unknown 10/29/2022 11:32 AM CDT Jim Walter MD LAB - BLOOD BANK OR DERABLES [facility] LAB [address] [place] [address], [facility] [phone] * PREPARE (CROSSMATCH) RBC UNIT(S), 2 Units (11/02/2022 1:17 AM CDT) Unit Description N/A [facility] B[facility]OD [facility] LAB Blood Bank BLOOD SPECIMEN / Unknown 10/29/2022 11:32 AM CDT Jim Walter MD LAB - BLOOD BANK OR DERABLES Performing Organization Address City/[facility]/ZIP Co de Phone Number [facility]OD [facility] [address] [place] [address], [place] [phone] * CT ABDOMEN WO CONTRAST (2022 6:47 PM CDT) Anatomical Region Laterality Modality Abdomen Computed Tomogra phy 2022 7:20 PM CDT Impressions 11/02/2022 1:18 AM CDT Impression: Interval placement of a percutaneous gastrostomy tube with intraluminal placement of tip and inflated balloon within the body/antrum of the stomach without complication, as clinically queried.. > Dictated by Tim Major MD (president mortgage company). I, Pepe Gonzalez MD have personally reviewed and interpreted this examination/study. > Interpreting Provider: Pepe Gonzalez MD on 11/02/2022 1:18 AM Narrative 11/02/2022 1:18 AM CDT PROCEDURE: ??CT ABDOMEN WO CONTRAST, DATE/TIME OF EXAM: ??2022 6:47 PM, LOCATION ??[facility] INDICATION: Z93.1: Presence of externally removable percutaneous [...] CONTRAST, DATE/TIME OF EXAM: 2022 6:47PM, LOCATION [facility] INDICATION: Z93.1: Presence of externally removable percutaneous [...] queried.. > Dictated by Tim Major MD (president mortgage company). I, Pepe Gonzalez MD have personally reviewed [...] Procedure Code(s): ? --- Professional --- ? 62645, Esophagogastroduoden oscopy, flexible, transoral; with directed ? placement of percutaneous gastrostomy tube Diagnosis Code(s): ?--- Professional --- ?K44.9, Diaphragmatic hernia without obstruction or ?gangrene ?K29.60, Other gastritis without bleeding ?R13.12, Dysphagia, oropharyngeal phase ?R29.818, Other symptoms and signs involving the ?nervous system ?Z43.1, Encounter for attention to gastrostomy CPT copyright 2021 [employer]. All rights reserved. The codes documented in this report are preliminary and upon laborer egg producing farm review may be revised to meet current compliance requirements. Khanh Metz MD 2022 3:26:58 PM Note Initiated On: 2022 2:14 PM Number of Addenda: 0 ? [facility] ? [address] [place] [address] [facility] PROVATION 2022 2:14 PM CDT Khanh Metz MD GI PROCEDURE ORDERAB LES [facility] PROVATION * (ABNORMAL) PTT [facility] (2022 8:48 AM CDT) APTT 43.6(H) 23.0 - 38.4 Seconds 2022 9:20 AM CDT [facility] Comment:Suggested therapeuti c range for full dose I.V. unfractionated heparin therapy for venous thromboembolism is 71 to 109 seconds. Blood BLOOD SPECIMEN / Unknown Venipuncture / Unknown 2022 8:48 AM CDT 2022 8:56 AM CDT Jim Walter MD LAB - COAGULATION O RDERABLES [facility] [address] [place] [address], [facility] [phone] * PT-INR [facility] (2022 2:40 AM CDT) PT 14.3 12.1 - 14.8 Seconds 2022 3:16 AM CDT [facility] INR 1.1 See Comment 2022 3:16 AM CDT [facility] Comment:The suggested therap eutic range for standard coumadin (warfarin) therapy is an INR of 2.0-3.0. For high-risk patients (Mechanical Mitral Valve Prosthesis, etc.), the suggested prophylactic therapeutic range is an INR of 2.5-3.5. Blood BLOOD SPECIMEN / Unknown Venipuncture / Unknown 2022 2:40 AM CDT 2022 2:47 AM CDT Emir Vail MD LAB - COAGULATION OR DERABLES Performing Organization Address City/[facility]/ZIP Co de Phone Number [facility] [address] [place] [address], [facility] [phone] * (ABNORMAL) PTT [facility] (2022 2:40 AM CDT) APTT 67.7(H) 23.0 - 38.4 Seconds 2022 3:16 AM CDT [facility] Comment:Suggested therapeuti c range for full dose I.V. unfractionated heparin therapy for venous thromboembolism is 71 to 109 seconds. Blood BLOOD SPECIMEN / Unknown Venipuncture / Unknown 2022 2:40 AM CDT 2022 2:47 AM CDT Good Antunez MD LAB - COAGULATION OR DERABLES Performing Organization Address [facility]/ZIP Co de Phone Number [address] [address], [facility] [phone] * (ABNORMAL) PTT [facility] (2022 12:03 AM CDT) APTT 71.4(H) 23.0 - 38.4 Seconds 2022 12:45 AM [facility] Comment:Suggested therapeuti c range for full dose I.V. unfractionated heparin therapy for venous thromboembolism is 71 to 109 seconds. Blood BLOOD SPECIMEN / Unknown Venipuncture / Unknown 2022 12:03 AM CDT 2022 12:18 AM CDT Jim Walter MD LAB - COAGULATION O RDERABLES Performing Organization Address [facility]/ZIP Co de Phone Number [address] [address], [facility] [phone] * (ABNORMAL) BASIC METABOLIC PANEL (CALCIUM TOTAL) (2022 12:03 AM CDT) BUN 8 7 - 26 mg/dL 2022 12:45 AM [facility] Creatinine 0.56 0.56 - 0.96 mg/dL 2022 12:45 AM [facility] Sodium 139 136 - 145 mmol/L 2022 12:45 AM [facility] Potassium 3.7 3.5 - 4.5 mmol/L 2022 12:45 AM [facility] Chloride 105 98 - 107 mmol/L 2022 12:45 AM [facility] CO2 25 22 - 29 mmol/L 2022 12:45 AM [facility] Glucose 128(H) 70 - 115 mg/dL 2022 12:45 AM [facility] Calcium 8.7 8.4 - 10.2 mg/dL 2022 12:45 AM [facility] Anion Gap 13 8 - 18 2022 12:45 AM [facility] BUN/Creatinine Ratio 14 7 - 23 2022 12:45 AM [facility] Osmolality Calculated 288 270 - 300 mOsm/kg 2022 12:45 AM [facility] eGFR by CKD-EPI >90 >=90 mL/min/1.7 3 m2 2022 12:45 AM [facility] Blood BLOOD SPECIMEN / Unknown Venipuncture / Unknown 2022 12:03 AM CDT 2022 12:18 AM CDT Emir Vail MD LAB - CHEMISTRY ORDE HIRAL [facility] Organization Address City/State/ZIP Co de Phone Number [facility] [address] [place] [address], [facility] [phone] * (ABNORMAL) CBC W AUTO DIFFERENTIAL (2022 12:03 AM T) WBC 20.6(H) 3.5 - 10.5 10? 3 /uL 2022 12:40 AM [facility] RBC 3.41(L) 3.80 - 5.20 10? 6 /uL 2022 12:40 AM [facility] Hemoglobin 10.1(L) 12.0 - 15.6 g/dL 2022 12:40 AM [facility] Hematocrit 31.6(L) 35.0 - 45.0 % 2022 12:40 AM [facility] MCV 92.7 80.7 - 98.3 fL 2022 12:40 AM [facility] MCH 29.6 26.7 - 34.0 pg 2022 12:40 AM [facility] MCHC 32.0 30.8 - 35.9 g/dL 2022 12:40 AM [facility] RDW-SD 49.7 36.0 - 50.0 fL 2022 12:40 AM [facility] RDW-CV 15.1(H) 11.2 - 14.8 % 2022 12:40 AM [facility] Platelet Count 437(H) 150 - 400 10? 3 /uL 2022 12:40 AM [facility] MPV 9.8 9.4 - 12.9 fL 2022 12:40 AM [facility] nRBC Absolute 0.03(H) 0 10? 3 /uL 2022 12:40 AM [facility] nRBC Auto 0.1(H) 0 /100 WBC 2022 12:40 AM [facility] Neutrophils % 71.7(H) 35.0 - 70.0 % 2022 12:40 AM [facility] Lymphocytes % 14.3(L) 20.0 - 43.0 % 2022 12:40 AM [facility] Monocytes % 9.6 5.0 - 13.0 % 2022 12:40 AM [facility] Eosinophils % 2.0 0.0 - 6.0 % 2022 12:40 AM [facility] Basophil % 0.4 0.0 - 2.0 % 2022 12:40 AM [facility] Neutrophils Absolute 14.76(H) 1.60 - 7.00 10? 3 /uL 2022 12:40 AM [facility] Lymphocyte Absolute 2.94 1.10 - 3.90 10? 3 /uL 2022 12:40 AM [facility] Monocytes Absolute 1.98(H) 0.26 - 1.07 10? 3 /uL 2022 12:40 AM [facility] Eosinophils Absolute 0.42 0.00 - 0.47 10? 3 /uL 2022 12:40 AM [facility] Basophils Absolute 0.08 0.00 - 0.08 10? 3 /uL 2022 12:40 AM [facility] Immature Granulocytes % 2.0(H) 0.0 - 1.0 % 2022 12:40 AM [facility] Immature Granulocytes Absolute 0.41 2022 12:40 AM CDT [facility] Blood BLOOD SPECIMEN / Unknown Venipuncture / Unknown 2022 12:03 AM CDT 2022 12:18 AM CDT Emir Vail MD LAB - HEMATOLOGY ORD DIMAS [address] [address], [place] [phone] * PHOSPHORUS BLOOD (2022 12:03 AM CDT) Phosphorus 4.1 2.9 - 5.1 mg/dL 2022 12:45 AM CDT [facility] Blood BLOOD SPECIMEN / Unknown Venipuncture / Unknown 2022 12:03 AM CDT 2022 12:18 AM CDT Emir Vail MD LAB - CHEMISTRY [place] [facility] Performing Organization Address City/[facility]/ZIP Co de Phone Number [address] [address], [place] [phone] * MAGNESIUM BLOOD (2022 12:03 AM CDT) Magnesium 2.1 1.6 - 2.6 mg/dL 2022 12:45 AM CDT [facility] Blood BLOOD SPECIMEN / Unknown Venipuncture / Unknown 2022 12:03 AM CDT 2022 12:18 AM CDT Emir Vail MD LAB - CHEMISTRY [place] BLACKMAN Performing Organization Address City/[facility]/ZIP Co de Phone Number [address] [address], [place] [phone] * (ABNORMAL) PTT [facility] (10/31/2022 10:11 PM CDT) APTT 67.6(H) 23.0 - 38.4 Seconds 10/31/2022 11:16 PM CDT [facility] Comment:Suggested therapeuti c range for full dose I.V. unfractionated heparin therapy for venous thromboembolism is 71 to 109 seconds. Blood BLOOD SPECIMEN / Unknown Venipuncture / Unknown 10/31/2022 10:11 PM CDT 10/31/2022 10:24 PM CDT Jim Walter MD LAB - COAGULATION O RDERABLES Performing Organization Address [facility] Co de Phone Number [address] [address], [facility] [phone] * (ABNORMAL) PTT [facility] (10/31/2022 7:33 PM CDT) APTT 53.1(H) 23.0 - 38.4 Seconds 10/31/2022 8:18 PM CDT [facility] Comment:Suggested therapeuti c range for full dose I.V. unfractionated heparin therapy for venous thromboembolism is 71 to 109 seconds. Blood BLOOD SPECIMEN / Unknown Venipuncture / Unknown 10/31/2022 7:33 PM CDT 10/31/2022 7:51 PM CDT Good Antunez MD LAB - COAGULATION OR DERABLES Performing Organization Address [facility] Co de Phone Number [address] [address], [facility] [phone] * (ABNORMAL) PTT [facility] (10/31/2022 3:22 PM CDT) APTT 50.2(H) 23.0 - 38.4 Seconds 10/31/2022 3:51 PM CDT [facility] Comment:Suggested therapeuti c range for full dose I.V. unfractionated heparin therapy for venous thromboembolism is 71 to 109 seconds. Blood BLOOD SPECIMEN / Unknown Venipuncture / Unknown 10/31/2022 3:22 PM CDT 10/31/2022 3:27 PM CDT Good Antunez MD LAB - COAGULATION OR DERABLES [facility] [address] [place] [address], [facility] [phone] * CT ABDOMEN PELVIS W CONTRAST (10/31/2022 [...] DATE/TIME OF EXAM: ??10/31/2022 10:16 AM, LOCATION ??[facility] INDICATION: I33.0: Aortic valve vegetation ADDITIONAL CLINICAL [...] DATE/TIME OF EXAM: 10/31/2022 10:16 AM, LOCATION [facility] INDICATION: I33.0: Aortic valve vegetation ADDITIONAL CLINICAL [...] Jim Walter MD CT ORDERABLES * PTT [facility] (10/31/2022 9:48 AM CDT) Pathologist [facility] APTT 27.2 23.0 - 38.4 Seconds 10/31/2022 10:23 AM CDT [facility] Comment:Suggested therapeuti c range for full dose I.V. unfractionated heparin therapy for venous thromboembolism is 71 to 109 seconds. Blood BLOOD SPECIMEN / Unknown Venipuncture / Unknown 10/31/2022 9:48 AM CDT 10/31/2022 9:54 AM CDT Good Antunez MD LAB - COAGULATION OR DERABLES Performing Organization Address City/State/[facility] Co de Phone Number [facility] [address] [place] [address], [facility] [phone] * (ABNORMAL) VANCOMYCIN LEVEL TROUGH (10/31/2022 9:48 AM CDT) Pathologist [facility] Vancomycin Trough 25.4(HH) 10.0 - 20.0 ug/mL 10/31/2022 10:30 AM CDT [facility] Blood BLOOD SPECIMEN / Unknown Venipuncture / Unknown 10/31/2022 9:48 AM CDT 10/31/2022 9:51 AM CDT Narrative [facility] - 10/31/2022 10:30 AM CDT See institution protocol. Dary Garvey MD LAB - CHEMISTRY ORDE HIRAL Performing Organization Address [facility]/ZIP Co de Phone Number [facility] [address] [place] [address], [facility] [phone] * PT-INR [facility] (10/31/2022 12:22 AM CDT) PT 14.5 12.1 - 14.8 Seconds 10/31/2022 12:54 AM CDT [facility] INR 1.1 See Comment 10/31/2022 12:54 AM T [facility] Comment:The suggested therap eutic range for standard coumadin (warfarin) therapy is an INR of 2.0-3.0. For high-risk patients (Mechanical Mitral Valve Prosthesis, etc.), the suggested prophylactic therapeutic range is an INR of 2.5-3.5. Blood BLOOD SPECIMEN / Unknown Venipuncture / Unknown 10/31/2022 12:22 AM CDT 10/31/2022 12:30 AM CDT Emir Vail MD LAB - COAGULATION OR DERABLES [facility] [address] [place] [address], [facility] [phone] * (ABNORMAL) BASIC METABOLIC PANEL (CALCIUM TOTAL) (10/31/2022 12:22 AM CDT) BUN 8 7 - 26 mg/dL 10/31/2022 12:57 AM CDT [facility] Creatinine 0.56 0.56 - 0.96 mg/dL 10/31/2022 12:57 AM CDT [facility] Sodium 140 136 - 145 mmol/L 10/31/2022 12:57 AM CDT [facility] Potassium 4.2 3.5 - 4.5 mmol/L 10/31/2022 12:57 AM CDT [facility] Chloride 107 98 - 107 mmol/L 10/31/2022 12:57 AM [facility] CO2 24 22 - 29 mmol/L 10/31/2022 12:57 AM [facility] Glucose 119(H) 70 - 115 mg/dL 10/31/2022 12:57 AM [facility] Calcium 8.4 8.4 - 10.2 mg/dL 10/31/2022 12:57 AM [facility] Anion Gap 13 8 - 18 10/31/2022 12:57 AM [facility] BUN/Creatinine Ratio 14 7 - 23 10/31/2022 12:57 AM [facility] Osmolality Calculated 289 270 - 300 mOsm/kg 10/31/2022 12:57 AM [facility] eGFR by CKD-EPI >90 >=90 mL/min/1.7 3 m2 10/31/2022 12:57 AM [facility] Blood BLOOD SPECIMEN / Unknown Venipuncture / Unknown 10/31/2022 12:22 AM CDT 10/31/2022 12:30 AM T Emir Vail MD LAB - CHEMISTRY [place] [facility] Organization Address City/State/ZIP Co de Phone Number [facility] [address] [place] [address], [facility] [phone] * (ABNORMAL) CBC W AUTO DIFFERENTIAL (10/31/2022 12:22 AM [facility]) WBC 19.6(H) 3.5 - 10.5 10? 3 /uL 10/31/2022 12:40 AM [facility] RBC 3.30(L) 3.80 - 5.20 10? 6 /uL 10/31/2022 12:40 AM [facility] Hemoglobin 9.9(L) 12.0 - 15.6 g/dL 10/31/2022 12:40 AM [facility] Hematocrit 30.4(L) 35.0 - 45.0 % 10/31/2022 12:40 AM [facility] MCV 92.1 80.7 - 98.3 fL 10/31/2022 12:40 AM [facility] MCH 30.0 26.7 - 34.0 pg 10/31/2022 12:40 AM [facility] MCHC 32.6 30.8 - 35.9 g/dL 10/31/2022 12:40 AM [facility] RDW-SD 50.4(H) 36.0 - 50.0 fL 10/31/2022 12:40 AM [facility] RDW-CV 15.3(H) 11.2 - 14.8 % 10/31/2022 12:40 AM [facility] Platelet Count 442(H) 150 - 400 10? 3 /uL 10/31/2022 12:40 AM [facility] MPV 9.5 9.4 - 12.9 fL 10/31/2022 12:40 AM [facility] nRBC Absolute 0.15(H) 0 10? 3 /uL 10/31/2022 12:40 AM [facility] nRBC Auto 0.8(H) 0 /100 WBC 10/31/2022 12:40 AM [facility] Neutrophils % 74.0(H) 35.0 - 70.0 % 10/31/2022 12:40 AM [facility] Lymphocytes % 13.5(L) 20.0 - 43.0 % 10/31/2022 12:40 AM [facility] Monocytes % 8.3 5.0 - 13.0 % 10/31/2022 12:40 AM [facility] Eosinophils % 1.4 0.0 - 6.0 % 10/31/2022 12:40 AM [facility] Basophil % 0.4 0.0 - 2.0 % 10/31/2022 12:40 AM [facility] Neutrophils Absolute 14.54(H) 1.60 - 7.00 10? 3 /uL 10/31/2022 12:40 AM [facility] Lymphocyte Absolute 2.65 1.10 - 3.90 10? 3 /uL 10/31/2022 12:40 AM [facility] Monocytes Absolute 1.63(H) 0.26 - 1.07 10? 3 /uL 10/31/2022 12:40 AM CDT [facility] Eosinophils Absolute 0.28 0.00 - 0.47 10? 3 /uL 10/31/2022 12:40 AM CDT [facility] Basophils Absolute 0.07 0.00 - 0.08 10? 3 /uL 10/31/2022 12:40 AM CDT [facility] Immature Granulocytes % 2.4(H) 0.0 - 1.0 % 10/31/2022 12:40 AM CDT [facility] Immature Granulocytes Absolute 0.47 10/31/2022 12:40 AM CDT [facility] Blood BLOOD SPECIMEN / Unknown Venipuncture / Unknown 10/31/2022 12:22 AM CDT 10/31/2022 12:30 AM CDT Emir Vail MD LAB - HEMATOLOGY ORD ERABLES [address] [address], [facility] [phone] * PHOSPHORUS BLOOD (10/31/2022 12:22 AM CDT) Phosphorus 4.1 2.9 - 5.1 mg/dL 10/31/2022 12:57 AM CDT [facility] Blood BLOOD SPECIMEN / Unknown Venipuncture / Unknown 10/31/2022 12:22 AM CDT 10/31/2022 12:30 AM CDT Emir Vail MD LAB - CHEMISTRY ORDDanyelle BLACKMAN [address] [address], [facility] [phone] * MAGNESIUM BLOOD (10/31/2022 12:22 AM CDT) Magnesium 1.9 1.6 - 2.6 mg/dL 10/31/2022 12:57 AM CDT [facility] Blood BLOOD SPECIMEN / Unknown Venipuncture / Unknown 10/31/2022 12:22 AM CDT 10/31/2022 12:30 AM CDT Emir Vail MD LAB - CHEMISTRY [place]ACKMAN Performing Organization Address City/[facility]/ZIP Co de Phone Number [address] [address], [facility] [phone] * PTT [facility] (10/30/2022 9:24 PM CDT) APTT 25.8 23.0 - 38.4 Seconds 10/30/2022 9:55 PM CDT [facility] Comment:Suggested therapeuti c range for full dose I.V. unfractionated heparin therapy for venous thromboembolism is 71 to 109 seconds. Blood BLOOD SPECIMEN / Unknown Venipuncture / Unknown 10/30/2022 9:24 PM CDT 10/30/2022 9:36 PM CDT Good Antunez MD LAB - COAGULATION OR DERABLES Performing Organization Address [facility]/ZIP Co de Phone Number [address] [address], [facility] [phone] * PTT [facility] (10/30/2022 8:32 PM CDT) APTT 27.9 23.0 - 38.4 Seconds 10/30/2022 9:06 PM CDT [facility] Comment:Suggested therapeuti c range for full dose I.V. unfractionated heparin therapy for venous thromboembolism is 71 to 109 seconds. Blood BLOOD SPECIMEN / Unknown Venipuncture / Unknown 10/30/2022 8:32 PM CDT 10/30/2022 8:41 PM CDT Good Antunez MD LAB - COAGULATION OR DERABLES Performing Organization Address City/[facility]/ZIP Co de Phone Number [address] [address], [facility] [phone] * CT HEAD WO CONTRAST (10/30/2022 8:22 [...] frontal gyrus/frontal operculum, consistent with an evolving wkzehhfr-mx-kkspmlb infarct. 4.No significant midline shift. Similar-appearing size and configuration of the ventricles without evidence of hydrocephalus. Basal cisterns are patent. 5.No other convincing change. Partially imaged left nasoenteric tube. 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 4.No significant midline shift. Similar-appearing size and configurationof the ventricles without evidence of hydrocephalus. Basal cisterns are patent. 5.No other convincing change. Partially imaged left nasoenteric tube. > Interpreting Provider: Amanda Real MD, PhD on 10/31/2022 1:26 AM Jim Walter MD CT ORDERABLES * (ABNORMAL) PTT [facility] (10/30/2022 4:59 PM CDT) APTT 175.2(HH) 23.0 - 38.4 Seconds 10/30/2022 5:47 PM CDT [facility] Comment:Suggested therapeuti c range for full dose I.V. unfractionated heparin therapy for venous thromboembolism is 71 to 109 seconds. Blood BLOOD SPECIMEN / Unknown Venipuncture / Unknown 10/30/2022 4:59 PM CDT 10/30/2022 5:11 PM CDT Good Antunez MD LAB - COAGULATION OR DERABLES [facility] [address] [id number], [facility] [phone] * [place] GLENN Llamas ANGIO TEAM (10/30/2022 2:40 PM CDT) Narrative [facility] RADIOLOGY - 10/30/2022 2:56 PM CDT Fluoroscopy was used for this exam in the OR. Please see the Operative report. Valdez Clay MD FLUOROSCOPY ORDERA BLES Performing Organization Address [facility]/ZIP Co de Phone Number [facility] RAD[facility] * TRANSFUSE RED BLOOD CELL LEUKOREDUCED UNIT(S) (10/30/2022 2:20 PM CDT) Valdez Clay MD NURSING - BLOOD [place] OD TRANSFUSION * TRANSFUSE RED BLOOD CELL LEUKOREDUCED UNIT(S) (10/30/2022 1:53 PM CDT) Valdez Clay MD NURSING - BLOOD [place] TRANSFUSION * ACT LR - POCT ([facility]) (10/30/2022 1:50 PM CDT) ACT LR 287 See result comments sec 10/30/2022 6:37 PM CDT [facility] Blood BLOOD SPECIMEN / Unknown 10/30/2022 1:50 PM CDT 10/30/2022 6:37 PM CDT Narrative [facility] - 10/30/2022 6:37 PM CDT ACT-LR Therapeutics ranges are: Cardiac can labeler = 200-300 seconds Sheath pull = ACT [...] - COAGULATION O RDERABLES Performing Organization Address [facility]/ZIP Co de Phone Number [facility] [address] [place] [address], [facility] [phone] * (ABNORMAL) BLOOD GAS+COOX+LYTES+METAB ARTERIAL POCT (10/30/2022 1:33 PM CDT) pH Arterial 7.40 7.35 - 7.45 pH 10/30/2022 1:33 PM [facility] pO2 Arterial 228(H) 80 - 100 mmHg 10/30/2022 1:33 PM [facility] pCO2 Arterial 39 35 - 45 mmHg 1:33 PM [facility] HCO3 Arterial 24.2 20.0 - 30.0 mmol/L 10/30/2022 1:33 PM [facility] BE Arterial -0.5 -2.0 - 2.0 mmol/L 10/30/2022 1:33 PM [facility] Oxyhemoglobin Arterial 97.5 % 10/30/2022 1:33 PM [facility] Dexoyhemoglobin (HHB) % <1.0 % 10/30/2022 1:33 PM [facility] Methemoglobin <0.8 0.0 - 2.0 % 10/30/2022 1:33 PM [facility] Carboxyhemoglobin 1.4 0.0 - 2.0 % 2022 1:33 PM [facility] Comment:Carboxyhemoglobin No rmal Concentration: Non-smokers: 0-2%; Smokers: 0- 9%; Toxic: >20% O2 Content Arterial 11.3 Interpret within clinical context ml/dL 10/30/2022 1:33 PM [facility] Hemoglobin by COOX 7.8(L) 12.0 - 15.6 g/dL 10/30/2022 1:33 PM [facility] O2 Saturation Arterial 100 90 - 100 % 10/30/2022 1:33 PM [facility] Sodium Whole Blood 140 135 - 145 mmol/L 10/30/2022 1:33 PM [facility] Potassium Whole Blood 4.4 3.5 - 5.5 mmol/L 10/30/2022 1:33 PM [facility] Chloride WB 108(H) 78 - 107 mmol/L 10/30/2022 1:33 PM [facility] Calcium Ionized 1.30 mmol/L 1:33 PM [facility] Ionized Calcium pH Adjusted 1.30 1.19 - 1.34 mmol/L 10/30/2022 1:33 PM CDT [facility] Anion Gap (AG) Arterial 12 8 - 18 mmol/L 10/30/2022 1:33 PM CDT [facility] Glucose WB 127(H) 70 - 115 mg/dL 10/30/2022 1:33 PM CDT [facility] Lactic Acid Whole Blood 0.9 <=2.0 mmol/L 10/30/2022 1:33 PM CDT [facility] Blood, arterial ARTERIAL BLOOD SPECIMEN / Unknown 10/30/2022 1:33 PM CDT 10/30/2022 1:34 PM CDT Jim Walter MD LAB - POINT OF CARE ORDERABLES Performing Organization Address [facility] Co de Phone Number [address] [address], [place] [phone] * ACT LR - POCT ([facility]) (10/30/2022 1:32 PM CDT) ACT LR 171 See result comments sec 10/30/2022 6:37 PM CDT [facility] Blood BLOOD SPECIMEN / Unknown 10/30/2022 1:32 PM CDT 10/30/2022 6:37 PM CDT Narrative [facility] - 10/30/2022 6:37 PM CDT ACT-LR Therapeutics ranges are: Cardiac can labeler = 200-300 seconds Sheath pull = ACT [...] - COAGULATION O RDERABLES Performing Organization Address [facility]/ZIP Co de Phone Number [address] [address], [place] [phone] * (ABNORMAL) BLOOD GAS+COOX+LYTES+METAB ARTERIAL POCT (10/30/2022 12:59 PM [facility]) pH Arterial 7.33(L) 7.35 - 7.45 pH 10/30/2022 12:59 PM [facility] pO2 Arterial 208(H) 80 - 100 mmHg 10/30/2022 12:59 PM [facility] pCO2 Arterial 49(H) 35 - 45 mmHg 12:59 PM [facility] HCO3 Arterial 25.8 20.0 - 30.0 mmol/L 10/30/2022 12:59 PM [facility] BE Arterial -0.2 -2.0 - 2.0 mmol/L 10/30/2022 12:59 PM [facility] Oxyhemoglobin Arterial 95.7 % 10/30/2022 12:59 PM [facility] Dexoyhemoglobin (HHB) % 1.6 % 10/30/2022 12:59 PM [facility] Methemoglobin 1.4 0.0 - 2.0 % 10/30/2022 12:59 PM [facility] Carboxyhemoglobin 1.3 0.0 - 2.0 % 2022 12:59 PM [facility] Comment:Carboxyhemoglobin No rmal Concentration: Non-smokers: 0-2%; Smokers: 0- 9%; Toxic: >20% O2 Content Arterial 10.2 Interpret within clinical context ml/dL 10/30/2022 12:59 PM [facility] Hemoglobin by COOX 7.2(L) 12.0 - 15.6 g/dL 10/30/2022 12:59 PM [facility] O2 Saturation Arterial 98 90 - 100 % 10/30/2022 12:59 PM [facility] Sodium Whole Blood 139 135 - 145 mmol/L 10/30/2022 12:59 PM [facility] Potassium Whole Blood 4.2 3.5 - 5.5 mmol/L 10/30/2022 12:59 PM [facility] Chloride WB 109(H) 78 - 107 mmol/L 10/30/2022 12:59 PM CDT [facility] Calcium Ionized 1.08 mmol/L 12:59 PM CDT [facility] Ionized Calcium pH Adjusted 1.05(L) 1.19 - 1.34 mmol/L 10/30/2022 12:59 PM CDT [facility] Anion Gap (AG) Arterial 8 8 - 18 mmol/L 10/30/2022 12:59 PM CDT [facility] Glucose WB 133(H) 70 - 115 mg/dL 10/30/2022 12:59 PM CDT [facility] Lactic Acid Whole Blood 0.7 <=2.0 mmol/L 10/30/2022 12:59 PM CDT [facility] Blood, arterial ARTERIAL BLOOD SPECIMEN / Unknown 10/30/2022 12:59 PM CDT 10/30/2022 1:00 PM CDT Jim Walter MD LAB - POINT OF CARE ORDERABLES Performing Organization Address [facility]/ZIP Co de Phone Number [address] [address], [facility] [phone] * ACT LR - POCT ([facility]) (10/30/2022 12:57 PM CDT) ACT LR 228 See result comments sec 10/30/2022 6:37 PM CDT [facility] Blood BLOOD SPECIMEN / Unknown 10/30/2022 12:57 PM CDT 10/30/2022 6:37 PM CDT Narrative [facility] - 10/30/2022 6:37 PM CDT ACT-LR Therapeutics ranges are: Cardiac can labeler = 200-300 seconds Sheath pull = ACT [...] MD LAB - COAGULATION O RDERABLES [facility] [address] [place] [address], [place] [phone] * BLOOD GAS ART+LYTES+METAB+COOX POC NOTIF (10/30/2022 12:50 PM CDT) Comment Notification Label Only - See Separate Report 10/30/2022 2:02 PM CDT [facility] Other MISCELLANEOUS SAMPLES / Unknown 10/30/2022 12:50 PM CDT 10/30/2022 12:54 PM CDT Manuel Ramirez MD LAB - BLOOD GASES ORDERABLES Performing Organization Address [facility] Co de Phone Number [address] [address], [place] [phone] * ACT LR - POCT ([facility]) (10/30/2022 12:26 PM CDT) ACT LR 260 See result comments sec 10/30/2022 6:37 PM CDT [facility] Blood BLOOD SPECIMEN / Unknown 10/30/2022 12:26 PM CDT 10/30/2022 6:37 PM CDT Narrative [facility] - 10/30/2022 6:37 PM CDT ACT-LR Therapeutics ranges are: Cardiac can labeler = 200-300 seconds Sheath pull = ACT [...] - COAGULATION O RDERABLES Performing Organization Address [facility]/ZIP Co de Phone Number [address] [address], [place] [phone] * PATHOLOGY TISSUE (10/30/2022 12:18 PM CDT) Case Report Surgical Pathology Report ? Case: [id number] ? Authorizing Provider: ??Valdez Clay MD ?Collected: ? 10/30/2022 12:18 PM ? Ordering Location: ? [facility] ICU ? Received: ?10/30/2022 01:28 PM ? Pathologist: ? Rayna Barrera MD ? Specimen: ?Thrombus, right femoral thrombus ? 11/04/2022 6:13 PM CDT [facility] PATH[facility] Final Diagnosis Thrombus, right femoral, thrombectomy (A): - Thrombus 11/04/2022 6:13 PM [facility] PATHOLOGY LAB Microscopic Description and Comment Microscopic examination substantiates the final diagnosis. 11/04/2022 6:13 PM CDT [facility] PATHOLOGY LAB Clinical History The patient is a 41 year old woman with right common femoral thrombosis. 11/04/2022 6:13 PM CDT [facility] PATHOLOGY LAB Gross Description The requisition and specimen(s) are identified with the patient's name, Consuelo Darby. Received in formalin, specimen A , 1.7 x 0.7 x 0.3 cm aggregate of pink-duncan to red thrombus material. Entirely submitted in cassette A1. RB/CC 11/04/2022 6:13 PM CDT [facility] PATHOLOGY LAB Pathologist Location at [facility] 11/04/2022 6:13 PM CDT [facility] PATHOLOGY LAB Disclaimer The performance characteristics of all immunohistochemical and indirect immunofluorescence stains (if any) cited in this report were determined by the Histopathology Laboratory of [facility]. Some of these tests were developed [...] attending (teaching) pathologist. 11/04/2022 6:13 PM CDT [facility] PATHOLOGY LAB Embedded Images 11/04/2022 6:13 PM CDT [facility] PATHOLOGY LAB Resection without Tumor THROMBUS / Unknown 10/30/2022 12:18 PM CDT 10/30/2022 1:28 PM CDT Comment:Pre-op diagnosis: Critical limb-threatening ischemia Valdez Clay MD LAB - PATHOLOGY/ARJUN ROLON ORDERABLES Performing Organization Address City/State/[facility] Co de Phone Number [facility] PATHOLOGY LAB [address] [phone] * ACT LR - POCT ([facility]) (10/30/2022 12:16 PM CDT) ACT LR 223 See result comments sec 10/30/2022 6:37 PM CDT [facility] Blood BLOOD SPECIMEN / Unknown 10/30/2022 12:16 PM CDT 10/30/2022 6:37 PM CDT Narrative [facility] - 10/30/2022 6:37 PM CDT ACT-LR Therapeutics ranges are: Cardiac can labeler = 200-300 seconds Sheath pull = ACT [...] - COAGULATION O RDDIMAS Performing Organization Address [facility]/ZIP Co de Phone Number [address] [address], [place] [phone] * ACT LR - POCT ([facility]) (10/30/2022 12:07 PM CDT) Pathologist [facility] ACT LR 121 See result comments sec 10/30/2022 6:37 PM CDT [facility] Blood BLOOD SPECIMEN / Unknown 10/30/2022 12:07 PM CDT 10/30/2022 6:37 PM CDT Narrative [facility] - 10/30/2022 6:37 PM CDT ACT-LR Therapeutics ranges are: Cardiac can labeler = 200-300 seconds Sheath pull = ACT [...] - COAGULATION O DIONI Performing Organization Address City/[facility]/ZIP Co de Phone Number [address] [address], [place] [phone] * PREPARE (CROSSMATCH) RBC UNIT(S), 1 Units (10/30/2022 10:38 AM CDT) [facility] Unit Description AS1 LR PRBC [facility] Unit ABO B [facility] Unit Rh POS [facility] Product Number R02 [facility] B[facility] Unit Donor # [id number] [facility] Unit Status transfused [facility] B[facility] Product Code [id number] [facility] Blood Type Barcode 7300 [facility] Expiration Date [id number] S BLOOD BANK LAB Blood Bank BLOOD SPECIMEN / Unknown 10/29/2022 11:32 AM CDT Jim Walter MD LAB - BLOOD BANK OR DERABLES Performing Organization Address [facility]/ZIP Co de Phone Number [facility] [address] [place] [address], [facility] [phone] * (ABNORMAL) PTT [facility] (10/30/2022 8:39 AM CDT) APTT 96.2(H) 23.0 - 38.4 Seconds 10/30/2022 9:23 AM CDT [facility] Comment:Suggested therapeuti c range for full dose I.V. unfractionated heparin therapy for venous thromboembolism is 71 to 109 seconds. Blood BLOOD SPECIMEN / Unknown Venipuncture / Unknown 10/30/2022 8:39 AM CDT 10/30/2022 8:44 AM CDT Good Antunez MD LAB - COAGULATION OR DERABLES Performing Organization Address [facility]/ZIP Co de Phone Number [facility] [address] [place] [address], [facility] [phone] * PT-INR [facility] (10/30/2022 2:37 AM CDT) PT 13.6 12.1 - 14.8 Seconds 10/30/2022 3:26 AM CDT [facility] INR 1.0 See Comment 10/30/2022 3:26 AM CDT [facility] Comment:The suggested therap eutic range for standard coumadin (warfarin) therapy is an INR of 2.0-3.0. For high-risk patients (Mechanical Mitral Valve Prosthesis, etc.), the suggested prophylactic therapeutic range is an INR of 2.5-3.5. Blood BLOOD SPECIMEN / Unknown Venipuncture / Unknown 10/30/2022 2:37 AM CDT 10/30/2022 2:46 AM CDT Emir Vail MD LAB - COAGULATION OR DERABLES Performing Organization Address City/[facility]/ZIP Co de Phone Number [facility] [address] [place] [address], [facility] [phone] * (ABNORMAL) PTT [facility] (10/30/2022 2:37 AM CDT) APTT 77.7(H) 23.0 - 38.4 Seconds 10/30/2022 3:26 AM CDT [facility] Comment:Suggested therapeuti c range for full dose I.V. unfractionated heparin therapy for venous thromboembolism is 71 to 109 seconds. Blood BLOOD SPECIMEN / Unknown Venipuncture / Unknown 10/30/2022 2:37 AM CDT 10/30/2022 2:46 AM CDT Good Antunez MD LAB - COAGULATION OR DERABLES Performing Organization Address [facility] Co de Phone Number [facility] [address] [place] [address], [place] [phone] * HCG BETA BLOOD QUANTITATIVE (10/30/2022 12:17 AM CDT) Beta-hCG Total Quantitative <3 mIU/mL 10/30/2022 1:14 AM CDT [facility] Comment: HCG Numeric Result Interpretation: [...] - CHEMISTRY ORD ERABLES Performing Organization Address City/[facility]/ZIP Co de Phone Number [facility] [address] [place] [address], [place] [phone] * (ABNORMAL) DIFFERENTIAL MANUAL (10/30/2022 12:17 AM [facility]) WBC (corrected for NRBC) 17.9 10? 3 /uL 10/30/2022 1:27 AM [facility] Total Cell Count 100 10/31/19 1:27 AM [facility] Neutrophils Absolute Manual 11.46(H) 1.60 - 7.00 10? 3 /uL 10/30/2022 1:27 AM [facility] Comment:(BANDS+SEGS) x WBC = NEUT # (ANC) Lymphocyte Absolute Manual 4.83(H) 1.10 - 3.90 10? 3 /uL 10/30/2022 1:27 AM [facility] Monocytes Absolute Manual 0.90 0.26 - 1.07 10? 3 /uL 10/30/2022 1:27 AM [facility] Basophil Absolute Manual 0.18(H) 0.00 - 0.08 10? 3 /uL 10/30/2022 1:27 AM [facility] Band % Manual 3 0 - 10 % 10/30/2022 1:27 AM [facility] Neutrophil % Manual 61 35 - 70 % 10/30/2022 1:27 AM [facility] Lymphocyte % Manual 27 20 - 43 % 10/30/2022 1:27 AM [facility] Monocytes % Manual 5 5 - 13 % 10/30/2022 1:27 AM [facility] Basophils % Manual 1 0 - 2 % 10/30/2022 1:27 AM [facility] Metamyelocyte % Manual 1(H) 0 % 10/30/2022 1:27 AM [facility] Myelocytes % Manual 2(H) 0 % 10/30/2022 1:27 AM [facility] nRBC Manual 1(H) 0 /100 WBC 10/30/2022 1:27 AM [facility] Platelet Estimate Increased(A ) Adequate 10/30/2022 1:27 AM [facility] Anisocytosis Occasional( A) None 10/30/2022 1:27 AM [facility] Macrocytosis Few(A) None 10/30/2022 1:27 AM [facility] Polychromasia Few(A) None 10/30/2022 1:27 AM [facility] R[place] Bodies Rare(A) None 10/30/2022 1:27 AM [facility] Ovalocytes Rare(A) None 10/30/2022 1:27 AM [facility] Eduardo Cells Occasional( A) None 10/30/2022 1:27 AM [facility] Smudge Cells Rare(A) None 10/30/2022 1:27 AM [facility] Comment Platelet Platelet clumpled on the smear but appear increased. 10/30/2022 1:27 AM [facility] Blood BLOOD SPECIMEN / Unknown Venipuncture / Unknown 10/30/2022 12:17 AM CDT 10/30/2022 12:28 AM CDT Emir Vail MD LAB - HEMATOLOGY ORD ERABLES [facility] [address] [place] [address], [facility] [phone] * (ABNORMAL) BASIC METABOLIC PANEL (CALCIUM TOTAL) (10/30/2022 12:17 AM CDT) BUN 11 7 - 26 mg/dL 10/30/2022 1:03 AM [facility] Creatinine 0.61 0.56 - 0.96 mg/dL 10/30/2022 1:03 AM [facility] Sodium 141 136 - 145 mmol/L 10/30/2022 1:03 AM [facility] Potassium 4.0 3.5 - 4.5 mmol/L 10/30/2022 1:03 AM [facility] Chloride 107 98 - 107 mmol/L 10/30/2022 1:03 AM [facility] CO2 25 22 - 29 mmol/L 10/30/2022 1:03 AM [facility] Glucose 134(H) 70 - 115 mg/dL 10/30/2022 1:03 AM [facility] Calcium 8.8 8.4 - 10.2 mg/dL 10/30/2022 1:03 AM [facility] Anion Gap 13 8 - 18 10/30/2022 1:03 AM [facility] BUN/Creatinine Ratio 18 7 - 23 10/30/2022 1:03 AM [facility] Osmolality Calculated 293 270 - 300 mOsm/kg 10/30/2022 1:03 AM [facility] eGFR by CKD-EPI >90 >=90 mL/min/1.7 3 m2 10/30/2022 1:03 AM [facility] Blood BLOOD SPECIMEN / Unknown Venipuncture / Unknown 10/30/2022 12:17 AM CDT 10/30/2022 12:29 AM T Emir Vail MD LAB - CHEMISTRY [facility] Organization Address City/State/ZIP Co de Phone Number [facility] [address] [place] [phone] [phone] * (ABNORMAL) CBC W AUTO DIFFERENTIAL (10/30/2022 12:17 AM CDT) WBC 17.9(H) 3.5 - 10.5 10? 3 /uL 10/30/2022 12:45 AM [facility] Comment:The WBC count is cor rected by the instrument for nRBC's RBC 2.53(L) 3.80 - 5.20 10? 6 /uL 10/30/2022 12:45 AM [facility] Hemoglobin 7.6(L) 12.0 - 15.6 g/dL 10/30/2022 12:45 AM [facility] Hematocrit 24.3(L) 35.0 - 45.0 % 10/30/2022 12:45 AM [facility] MCV 96.0 80.7 - 98.3 fL 10/30/2022 12:45 AM [facility] MCH 30.0 26.7 - 34.0 pg 10/30/2022 12:45 AM [facility] MCHC 31.3 30.8 - 35.9 g/dL 10/30/2022 12:45 AM CDT [facility] RDW-SD 47.9 36.0 - 50.0 fL 10/30/2022 12:45 AM [facility] RDW-CV 13.8 11.2 - 14.8 % 10/30/2022 12:45 AM [facility] Platelet Count 586(H) 150 - 400 10? 3 /uL 10/30/2022 12:45 AM T [facility] MPV 10.4 9.4 - 12.9 fL 10/30/2022 12:45 AM [facility] nRBC Absolute 0.18(H) 0 10? 3 /uL 10/30/2022 12:45 AM [facility] nRBC Auto 1.0(H) 0 /100 WBC 10/30/2022 12:45 AM [facility] Blood BLOOD SPECIMEN / Unknown Venipuncture / Unknown 10/30/2022 12:17 AM CDT 10/30/2022 12:28 AM CDT Emir Vail MD LAB - HEMATOLOGY ORD ERABLES [address] [address], [facility] [phone] * PHOSPHORUS BLOOD (10/30/2022 12:17 AM CDT) Phosphorus 5.1 2.9 - 5.1 mg/dL 10/30/2022 1:03 AM T [facility] Blood BLOOD SPECIMEN / Unknown Venipuncture / Unknown 10/30/2022 12:17 AM CDT 10/30/2022 12:29 AM CDT Emir Vail MD LAB - CHEMISTRY ORDE HIRAL [address] [address], [facility] [phone] * MAGNESIUM BLOOD (10/30/2022 12:17 AM CDT) Magnesium 2.1 1.6 - 2.6 mg/dL 10/30/2022 1:03 AM CDT [facility] Blood BLOOD SPECIMEN / Unknown Venipuncture / Unknown 10/30/2022 12:17 AM CDT 10/30/2022 12:29 AM CDT Emir Vail MD LAB - CHEMISTRY [facility] Performing Organization Address City/[facility]/ZIP Co de Phone Number [address] [address], [facility] [phone] * (ABNORMAL) PTT [facility] (10/29/2022 8:02 PM CDT) APTT 70.7(H) 23.0 - 38.4 Seconds 10/29/2022 8:41 PM CDT [facility] Comment:Suggested therapeuti c range for full dose I.V. unfractionated heparin therapy for venous thromboembolism is 71 to 109 seconds. Blood BLOOD SPECIMEN / Unknown Venipuncture / Unknown 10/29/2022 8:02 PM CDT 10/29/2022 8:14 PM CDT Good Antunez MD LAB - COAGULATION OR DERABLES Performing Organization Address [facility]/ZIP Co de Phone Number [address] [address], [facility] [phone] * (ABNORMAL) PTT [facility] (10/29/2022 3:41 PM CDT) APTT 64.4(H) 23.0 - 38.4 Seconds 10/29/2022 4:28 PM CDT [facility] Comment:Suggested therapeuti c range for full dose I.V. unfractionated heparin therapy for venous thromboembolism is 71 to 109 seconds. Blood BLOOD SPECIMEN / Unknown Venipuncture / Unknown 10/29/2022 3:41 PM CDT 10/29/2022 3:48 PM CDT Good Antunez MD LAB - COAGULATION OR DERABLES Performing Organization Address City/[facility]/ZIP Co de Phone Number [address] [address], [facility] [phone] * TYPE + SCREEN PANEL (10/29/2022 11:19 AM CDT) Antibody Screen NEG 12:14 PM CDT [facility] ABO Rh B POS 10/29/2022 12:14 PM CDT [facility] Blood Bank BLOOD SPECIMEN / Unknown Venipuncture / Unknown 10/29/2022 11:19 AM CDT 10/29/2022 11:32 AM CDT Jim Walter MD LAB - BLOOD BANK OR DERABLES [facility] [address] [place] [address], [facility] [phone] * XR CHEST 1VW PORTABLE (10/29/2022 10:29 AM CDT) Anatomical Region Laterality Modality Chest Radiographic Irene ging 10/29/2022 11:3 8 AM CDT Narrative 10/29/2022 12:59 PM CDT PROCEDURE: ??XR CHEST 1VW PORTABLE, DATE/TIME OF EXAM: ??10/29/2022 10:29 AM, LOCATION ??[facility] INDICATION: R09.02: Hypoxia ADDITIONAL CLINICAL INFORMATION: Ordering Provider Reason For Exam: ??evaluate for hypoxia COMPARISON: Chest x-ray from 10/27/2022 FINDINGS/IMPRESSION: Enteric tube is seen coursing over the diaphragm without visualization of the distal tip. There is no focal consolidation, pleural effusion, or pneumothorax. The cardiomediastinal silhouette is normal. Report dictated by Jacques Russell DO (president mortgage [employer]). I, Jacques Cole DO have personally reviewed and interpreted this examination/study. > Interpreting Provider: Jacques Cole DO on 10/29/2022 12:59 PM Procedure Note Jacques Cole DO - 10/29/2022 PROCEDURE: XR CHEST 1VW PORTABLE, DATE/TIME OF EXAM: 10/29/2022 10:29AM, LOCATION [facility] INDICATION: R09.02: Hypoxia ADDITIONAL CLINICAL INFORMATION: Ordering Provider Reason For Exam: evaluate for hypoxia COMPARISON: Chest x-ray from 10/27/2022 FINDINGS/IMPRESSION: Enteric tube is seen coursing over the diaphragm without visualizationof the distal tip. There is no focal consolidation, pleural effusion, or pneumothorax. The cardiomediastinal silhouette is normal. Report dictated by Jacques Russell DO (president mortgage company). I, Jacques Cole DO have personally reviewed and interpreted this examination/study. > Interpreting Provider: Jacques Cole DO on 10/29/2022 12:59 PM Jim Walter MD DIAGNOSTIC IMAGING ORDERABLES * (ABNORMAL) PTT [facility] (10/29/2022 10:04 AM CDT) APTT 60.5(H) 23.0 - 38.4 Seconds 10/29/2022 10:38 AM CDT [facility] Comment:Suggested therapeuti c range for full dose I.V. unfractionated heparin therapy for venous thromboembolism is 71 to 109 seconds. Blood BLOOD SPECIMEN / Unknown Venipuncture / Unknown 10/29/2022 10:04 AM CDT 10/29/2022 10:11 AM CDT Good Antunez MD LAB - COAGULATION OR DERABLES [facility] [address] [place] [address], [facility] [phone] * PT-INR [facility] (10/29/2022 2:14 AM CDT) PT 13.2 12.1 - 14.8 Seconds 10/29/2022 2:49 AM CDT [facility] INR 1.0 See Comment 10/29/2022 2:49 AM CDT [facility] Comment:The suggested therap eutic range for standard coumadin (warfarin) therapy is an INR of 2.0-3.0. For high-risk patients (Mechanical Mitral Valve Prosthesis, etc.), the suggested prophylactic therapeutic range is an INR of 2.5-3.5. Blood BLOOD SPECIMEN / Unknown Venipuncture / Unknown 10/29/2022 2:14 AM CDT 10/29/2022 2:24 AM CDT Emir Vail MD LAB - COAGULATION OR DERABLES Performing Organization Address [facility]/ZIP Co de Phone Number [facility] [address] [place] [address], [facility] [phone] * (ABNORMAL) PTT [facility] (10/29/2022 2:14 AM CDT) Pathologist [facility] APTT 60.3(H) 23.0 - 38.4 Seconds 10/29/2022 2:49 AM CDT [facility] Comment:Suggested therapeuti c range for full dose I.V. unfractionated heparin therapy for venous thromboembolism is 71 to 109 seconds. Blood BLOOD SPECIMEN / Unknown Venipuncture / Unknown 10/29/2022 2:14 AM CDT 10/29/2022 2:24 AM CDT Good Antunez MD LAB - COAGULATION OR DERABLES Performing Organization Address [facility] Co de Phone Number [address] [address], [facility] [phone] * (ABNORMAL) DIFFERENTIAL MANUAL (10/29/2022 12:10 AM CDT) Pathologist [facility] WBC (corrected for NRBC) 21.3 10? 3 /uL 10/29/2022 1:20 AM CDT [facility] Total Cell Count 100 10/30/19 23 1:20 AM T [facility] Neutrophils Absolute Manual 13.42(H) 1.60 - 7.00 10? 3 /uL 10/29/2022 1:20 AM T [facility] Comment:(BANDS+SEGS) x WBC = NEUT # (ANC) Lymphocyte Absolute Manual 4.90(H) 1.10 - 3.90 10? 3 /uL 10/29/2022 1:20 AM CDT [facility] Monocytes Absolute Manual 1.92(H) 0.26 - 1.07 10? 3 /uL 10/29/2022 1:20 AM CDT [facility] Eosinophils Absolute Manual 0.64(H) 0.00 - 0.47 10? 3 /uL 10/29/2022 1:20 AM [facility] Band % Manual 3 0 - 10 % 10/29/2022 1:20 AM [facility] Neutrophil % Manual 60 35 - 70 % 10/29/2022 1:20 AM [facility] Lymphocyte % Manual 23 20 - 43 % 10/29/2022 1:20 AM [facility] Monocytes % Manual 9 5 - 13 % 10/29/2022 1:20 AM [facility] Eosinophils % Manual 3 0 - 6 % 10/29/2022 1:20 AM [facility] Metamyelocyte % Manual 2(H) 0 % 10/29/2022 1:20 AM [facility] nRBC Manual 1(H) 0 /100 WBC 10/29/2022 1:20 AM [facility] Platelet Estimate Increased (A) Adequate 10/29/2022 1:20 AM [facility] Macrocytosis 1+(A) None 10/29/2022 1:20 AM [facility] Polychromasia 1+(A) None 10/29/2022 1:20 AM [facility] Blood BLOOD SPECIMEN / Unknown Venipuncture / Unknown 10/29/2022 12:10 AM CDT 10/29/2022 12:16 AM CDT Emir Vail MD LAB - HEMATOLOGY ORD ERABLES Performing Organization Address [facility] Co de Phone Number [facility] [address] [place] [address] [phone] * (ABNORMAL) BASIC METABOLIC PANEL (CALCIUM TOTAL) (10/29/2022 12:10 AM CDT) BUN 9 7 - 26 mg/dL 10/29/2022 12:44 AM [facility] Creatinine 0.54(L) 0.56 - 0.96 mg/dL 10/29/2022 12:44 AM [facility] Sodium 138 136 - 145 mmol/L 10/29/2022 12:44 AM [facility] Potassium 4.1 3.5 - 4.5 mmol/L 10/29/2022 12:44 AM [facility] Chloride 106 98 - 107 mmol/L 10/29/2022 12:44 AM [facility] CO2 24 22 - 29 mmol/L 10/29/2022 12:44 AM [facility] Glucose 110 70 - 115 mg/dL 10/29/2022 12:44 AM [facility] Calcium 8.8 8.4 - 10.2 mg/dL 10/29/2022 12:44 AM [facility] Anion Gap 12 8 - 18 10/29/2022 12:44 AM [facility] BUN/Creatinine Ratio 17 7 - 23 10/29/2022 12:44 AM [facility] Osmolality Calculated 285 270 - 300 mOsm/kg 10/29/2022 12:44 AM [facility] eGFR by CKD-EPI >90 >=90 mL/min/1.7 3 m2 10/29/2022 12:44 AM [facility] Blood BLOOD SPECIMEN / Unknown Venipuncture / Unknown 10/29/2022 12:10 AM CDT 10/29/2022 12:17 AM [facility] Emir Vail MD LAB - [facility] Organization Address City/State/ZIP Co de Phone Number [facility] [address] [place] [address], [facility] [phone] * (ABNORMAL) CBC W AUTO DIFFERENTIAL (10/29/2022 12:10 AM CDT) WBC 21.3(H) 3.5 - 10.5 10? 3 /uL 10/29/2022 12:32 AM [facility] RBC 2.54(L) 3.80 - 5.20 10? 6 /uL 10/29/2022 12:32 AM [facility] Hemoglobin 7.8(L) 12.0 - 15.6 g/dL 10/29/2022 12:32 AM [facility] Hematocrit 24.4(L) 35.0 - 45.0 % 10/29/2022 12:32 AM [facility] MCV 96.1 80.7 - 98.3 fL 10/29/2022 12:32 AM [facility] MCH 30.7 26.7 - 34.0 pg 10/29/2022 12:32 AM [facility] MCHC 32.0 30.8 - 35.9 g/dL 10/29/2022 12:32 AM [facility] RDW-SD 47.9 36.0 - 50.0 fL 10/29/2022 12:32 AM [facility] RDW-CV 14.0 11.2 - 14.8 % 10/29/2022 12:32 AM [facility] Platelet Count 584(H) 150 - 400 10? 3 /uL 10/29/2022 12:32 AM [facility] MPV 10.0 9.4 - 12.9 fL 10/29/2022 12:32 AM [facility] nRBC Absolute 0.13(H) 0 10? 3 /uL 10/29/2022 12:32 AM [facility] nRBC Auto 0.6(H) 0 /100 WBC 10/29/2022 12:32 AM [facility] Blood BLOOD SPECIMEN / Unknown Venipuncture / Unknown 10/29/2022 12:10 AM CDT 10/29/2022 12:16 AM CDT Emir Vail MD LAB - HEMATOLOGY ORD ERABLES Performing Organization Address City/State/[facility] Co de Phone Number [address] [address] [phone] * PHOSPHORUS BLOOD (10/29/2022 12:10 AM CDT) Phosphorus 4.8 2.9 - 5.1 mg/dL 10/29/2022 12:44 AM [facility] Blood BLOOD SPECIMEN / Unknown Venipuncture / Unknown 10/29/2022 12:10 AM CDT 10/29/2022 12:17 AM CDT Emir Vail MD LAB - CHEMISTRY [place] BL[facility]MAN Performing Organization Address City/[facility]/ZIP Co de Phone Number [facility] [address] [place] [address], [place] [phone] * MAGNESIUM BLOOD (10/29/2022 12:10 AM CDT) Magnesium 2.0 1.6 - 2.6 mg/dL 10/29/2022 12:44 AM CDT [facility] Blood BLOOD SPECIMEN / Unknown Venipuncture / Unknown 10/29/2022 12:10 AM CDT 10/29/2022 12:17 AM CDT Emir Vail MD LAB - CHEMISTRY [place] BLACKMAN Performing Organization Address [facility]/ZIP Co de Phone Number [facility] [address] [place] [address], [place] [phone] * XR ABDOMEN KUB (10/28/2022 11:13 PM CDT) Anatomical Region Laterality Modality Abdomen Radiographic Irene ging 10/29/2022 10:0 5 AM CDT Narrative 10/29/2022 12:49 PM CDT PROCEDURE: ??XR ABDOMEN KUB, DATE/TIME OF EXAM: ??10/28/2022 11:13 PM, LOCATION ??[facility] 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 Report dictated by Jacques Russell DO (president mortgage company). I, Jacques Cole DO have personally reviewed and interpreted this examination/study. 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 Report dictated by Jacques Russell DO (president mortgage company). I, Jacques Cole DO have personally reviewed and interpreted this examination/study. > Interpreting Provider: Jacques Cole DO on 10/29/2022 12:49 PM Jim Walter MD DIAGNOSTIC IMAGING ORDERABLES * GLUCOSE - POINT OF CARE (10/28/2022 10:54 PM CDT) Glucose WB/POC 105 70 - 115 mg/dL 10/28/2022 10:54 PM CDT [facility] Specimen Type Cap Fingerstick 2022 10:54 PM CDT [facility] Blood BLOOD SPECIMEN / Unknown 10/28/2022 10:54 PM CDT 10/28/2022 10:54 PM CDT Jim Walter MD LAB - POINT OF CARE ORDERABLES [address] [address], [facility] [phone] * (ABNORMAL) PTT [facility] (10/28/2022 9:00 PM CDT) APTT 62.1(H) 23.0 - 38.4 Seconds 10/28/2022 9:34 PM CDT [facility] Comment:Suggested therapeuti c range for full dose I.V. unfractionated heparin therapy for venous thromboembolism is 71 to 109 seconds. Blood BLOOD SPECIMEN / Unknown Venipuncture / Unknown 10/28/2022 9:00 PM CDT 10/28/2022 9:11 PM CDT Good Antunez MD LAB - COAGULATION OR DERABLES [address] [place] [address], [place] [phone] * (ABNORMAL) GLUCOSE - POINT OF CARE (10/28/2022 5:26 PM CDT) Glucose WB/POC 118(H) 70 - 115 mg/dL 10/28/2022 5:38 PM CDT [facility] Specimen Type Cap Fingerstick 2022 5:38 PM CDT [facility] Blood BLOOD SPECIMEN / Unknown 10/28/2022 5:26 PM CDT 10/28/2022 5:38 PM CDT Jim Walter MD LAB - POINT OF CARE ORDERABLES [address] [address], [place] [phone] * (ABNORMAL) PTT [facility] (10/28/2022 3:54 PM CDT) APTT 63.4(H) 23.0 - 38.4 Seconds 10/28/2022 4:32 PM CDT [facility] Comment:Suggested therapeuti c range for full dose I.V. unfractionated heparin therapy for venous thromboembolism is 71 to 109 seconds. Blood BLOOD SPECIMEN / Unknown Venipuncture / Unknown 10/28/2022 3:54 PM CDT 10/28/2022 4:10 PM CDT Good Antunez MD LAB - COAGULATION OR DERABLES [address] [address], [place] [phone] * (ABNORMAL) GLUCOSE - POINT OF CARE (10/28/2022 12:05 PM CDT) Glucose WB/POC 125(H) 70 - 115 mg/dL 10/28/2022 12:12 PM CDT [facility] Specimen Type Cap Fingerstick 2022 12:12 PM CDT [facility] Blood BLOOD SPECIMEN / Unknown 10/28/2022 12:05 PM CDT 10/28/2022 12:12 PM CDT Jim Walter MD LAB - POINT OF CARE ORDERABLES Performing Organization Address [facility]/ZIP Co de Phone Number [facility] [address] [place] [address], [facility] [phone] * (ABNORMAL) PTT [facility] (10/28/2022 9:20 AM CDT) APTT 72.8(H) 23.0 - 38.4 Seconds 10/28/2022 9:53 AM CDT [facility] Comment:Suggested therapeuti c range for full dose I.V. unfractionated heparin therapy for venous thromboembolism is 71 to 109 seconds. Blood BLOOD SPECIMEN / Unknown Venipuncture / Unknown 10/28/2022 9:20 AM CDT 10/28/2022 9:27 AM CDT Good Antunez MD LAB - COAGULATION OR DERABLES Performing Organization Address [facility]/ZIP Co de Phone Number [address] [address], [facility] [phone] * VANCOMYCIN LEVEL TROUGH (10/28/2022 9:20 AM CDT) Pathologist [facility] Vancomycin Trough 16.5 10.0 - 20.0 ug/mL 10/28/2022 10:29 AM CDT [facility] Blood BLOOD SPECIMEN / Unknown Venipuncture / Unknown 10/28/2022 9:20 AM CDT 10/28/2022 9:25 AM CDT Narrative [facility] - 10/28/2022 10:29 AM CDT See institution protocol. Dary Garvey MD LAB - CHEMISTRY [place] BLACKMAN Performing Organization Address City/[facility]/ZIP Co de Phone Number [address] [address], [facility] [phone] * CT HEAD WO CONTRAST (10/28/2022 5:27 [...] subacute infarct. The report is dictated by aKyla Stevenson MD (president mortgage company) 1 I, Lonnie Rae MD have personally reviewed and interpreted this examination/study. > Interpreting Provider: Lonnie Rae MD on 10/28/2022 9:15 AM Narrative 10/28/2022 9:15 AM CDT PROCEDURE: ??CT HEAD WO CONTRAST, DATE/TIME OF EXAM: ??10/28/2022 5:28 AM, LOCATION ??[facility] INDICATION: Z91.89: At high risk for bleeding [...] DATE/TIME OF EXAM: 10/28/2022 5:28 AM, LOCATION [facility] INDICATION: Z91.89: At high risk for bleeding [...] report is dictated by Kayla Stevenson MD (president mortgage company) 1 ILonnie MD have personally reviewed and interpreted this examination/study. > Interpreting Provider: Lonnie Rae MD on 10/28/2022 9:15 AM Emir Vail MD CT ORDERABLES * (ABNORMAL) GLUCOSE - POINT OF CARE (10/28/2022 4:52 AM CDT) Glucose WB/POC 151(H) 70 - 115 mg/dL 10/28/2022 4:57 AM CDT [facility] Specimen Type Cap Fingerstick 2022 4:57 AM CDT 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 FINDINGS/IMPRESSION: Enteric tube courses below the diaphragm with the distal tip superimposing the antropyloric region. Report dictated by Martell Shetty MD (president mortgage company). Jacques Ornelas DO have personally reviewed and interpreted this examination/study. 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 FINDINGS/IMPRESSION: Enteric tube courses below the diaphragm with the distal tipsuperimposing the antropyloric region. Report dictated by Martell Shetty MD (president mortgage company). I, Jacques Cole DO have personally reviewed and interpreted this examination/study. > Interpreting Provider: Jacques Cole DO on 10/28/2022 12:24 PM Jim Walter MD DIAGNOSTIC IMAGING ORDERABLES * (ABNORMAL) PTT [facility] (10/28/2022 1:25 AM CDT) APTT 81.6(H) 23.0 - 38.4 Seconds 10/28/2022 1:55 AM CDT [facility] Comment:Suggested therapeuti c range for full dose I.V. unfractionated heparin therapy for venous thromboembolism is 71 to 109 seconds. Blood BLOOD SPECIMEN / Unknown Venipuncture / Unknown 10/28/2022 1:25 AM CDT 10/28/2022 1:31 AM CDT Good Antunez MD LAB - COAGULATION OR DERABLES Performing Organization Address [facility] Co de Phone Number [address] [address] [phone] * PT-INR [facility] (10/28/2022 1:25 AM CDT) PT 13.6 12.1 - 14.8 Seconds 10/28/2022 1:55 AM CDT [facility] INR 1.0 See Comment 10/28/2022 1:55 AM CDT [facility] Comment:The suggested therap eutic range for standard coumadin (warfarin) therapy is an INR of 2.0-3.0. For high-risk patients (Mechanical Mitral Valve Prosthesis, etc.), the suggested prophylactic therapeutic range is an INR of 2.5-3.5. Blood BLOOD SPECIMEN / Unknown Venipuncture / Unknown 10/28/2022 1:25 AM CDT 10/28/2022 1:31 AM CDT Emir Vail MD LAB - COAGULATION OR DERABLES Performing Organization Address [facility]/ZIP Co de Phone Number [address] [place] [address], [facility] [phone] * (ABNORMAL) BASIC METABOLIC PANEL (CALCIUM TOTAL) (10/28/2022 1:25 AM CDT) BUN 9 7 - 26 mg/dL 10/28/2022 1:57 AM [facility] Creatinine 0.54(L) 0.56 - 0.96 mg/dL 10/28/2022 1:57 AM [facility] Sodium 138 136 - 145 mmol/L 10/28/2022 1:57 AM [facility] Potassium 3.5 3.5 - 4.5 mmol/L 10/28/2022 1:57 AM [facility] Chloride 106 98 - 107 mmol/L 10/28/2022 1:57 AM [facility] CO2 26 22 - 29 mmol/L 10/28/2022 1:57 AM [facility] Glucose 134(H) 70 - 115 mg/dL 10/28/2022 1:57 AM [facility] Calcium 8.6 8.4 - 10.2 mg/dL 10/28/2022 1:57 AM [facility] Anion Gap 10 8 - 18 10/28/2022 1:57 AM [facility] BUN/Creatinine Ratio 17 7 - 23 10/28/2022 1:57 AM [facility] Osmolality Calculated 287 270 - 300 mOsm/kg 10/28/2022 1:57 AM [facility] eGFR by CKD-EPI >90 >=90 mL/min/1.7 3 m2 10/28/2022 1:57 AM [facility] Blood BLOOD SPECIMEN / Unknown Venipuncture / Unknown 10/28/2022 1:25 AM CDT 10/28/2022 1:31 AM CDT Emir Vail MD LAB - CHEMISTRY ORDE HIRAL [facility] Organization Address City/State/ZIP Co de Phone Number [facility] [address] [place] [address], [facility] [phone] * PHOSPHORUS BLOOD (10/28/2022 1:25 AM CDT) Phosphorus 3.9 2.9 - 5.1 mg/dL 10/28/2022 1:57 AM CDT [facility] Blood BLOOD SPECIMEN / Unknown Venipuncture / Unknown 10/28/2022 1:25 AM CDT 10/28/2022 1:31 AM CDT Emir Vail MD LAB - CHEMISTRY [place] BLACK[place] [address] [address], [place] [phone] * MAGNESIUM BLOOD (10/28/2022 1:25 AM CDT) Pathologist [facility] Magnesium 2.0 1.6 - 2.6 mg/dL 10/28/2022 1:57 AM CDT [facility] Blood BLOOD SPECIMEN / Unknown Venipuncture / Unknown 10/28/2022 1:25 AM CDT 10/28/2022 1:31 AM CDT Emir Vail MD LAB - CHEMISTRY [place] BLACKMAN Performing Organization Address City/[facility]/ZIP Co de Phone Number [address] [address], [place] [phone] * (ABNORMAL) GLUCOSE - POINT OF CARE (10/28/2022 1:24 AM CDT) [facility] Glucose WB/POC 143(H) 70 - 115 mg/dL 10/28/2022 1:29 AM CDT [facility] Specimen Type Cap Fingerstick 2022 1:29 AM CDT [facility] Blood BLOOD SPECIMEN / Unknown 10/28/2022 1:24 AM CDT 10/28/2022 1:29 AM CDT Jim Walter MD LAB - POINT OF CARE ORDERABLES Performing Organization Address City/[facility]/ZIP Co de Phone Number [address] [address], [place] [phone] * (ABNORMAL) DIFFERENTIAL MANUAL (10/27/2022 8:29 PM CDT) WBC (corrected for NRBC) 21.1 10? 3 /uL 10/27/2022 9:20 PM [facility] Total Cell Count 100 10/28/19 9:20 PM [facility] Neutrophils Absolute Manual 12.87(H) 1.60 - 7.00 10? 3 /uL 10/27/2022 9:20 PM [facility] Comment:(BANDS+SEGS) x WBC = NEUT # (ANC) Lymphocyte Absolute Manual 5.91(H) 1.10 - 3.90 10? 3 /uL 10/27/2022 9:20 PM [facility] Monocytes Absolute Manual 1.48(H) 0.26 - 1.07 10? 3 /uL 10/27/2022 9:20 PM [facility] Eosinophils Absolute Manual 0.42 0.00 - 0.47 10? 3 /uL 10/27/2022 9:20 PM [facility] Band % Manual 1 0 - 10 % 10/27/2022 9:20 PM [facility] Neutrophil % Manual 60 35 - 70 % 10/27/2022 9:20 PM [facility] Lymphocyte % Manual 28 20 - 43 % 10/27/2022 9:20 PM [facility] Monocytes % Manual 7 5 - 13 % 10/27/2022 9:20 PM [facility] Eosinophils % Manual 2 0 - 6 % 10/27/2022 9:20 PM [facility] Atypical Lymphocyte % Manual 1(H) 0 % 10/27/2022 9:20 PM [facility] Metamyelocyte % Manual 1(H) 0 % 10/27/2022 9:20 PM [facility] nRBC Manual 2(H) 0 /100 WBC 10/27/2022 9:20 PM [facility] Platelet Estimate Slightly Increased(A ) Adequate 10/27/2022 9:20 PM [facility] Anisocytosis Occasional( A) None 10/27/2022 9:20 PM [facility] Polychromasia Few(A) None 10/27/2022 9:20 PM CDT [facility] Ovalocytes Occasional( A) None 10/27/2022 9:20 PM CDT [facility] [place] Cells Occasional( A) None 10/27/2022 9:20 PM [facility] Blood BLOOD SPECIMEN / Unknown Venipuncture / Unknown 10/27/2022 8:29 PM CDT 10/27/2022 8:36 PM CDT Jim Walter MD LAB - HEMATOLOGY OR DERABLES [facility] [address] [place] [address], [facility] [phone] * (ABNORMAL) CBC W AUTO DIFFERENTIAL (10/27/2022 8:29 PM CDT) WBC 21.1(H) 3.5 - 10.5 10? 3 /uL 10/27/2022 8:54 PM [facility] RBC 2.52(L) 3.80 - 5.20 10? 6 /uL 10/27/2022 8:54 PM [facility] Hemoglobin 7.6(L) 12.0 - 15.6 g/dL 10/27/2022 8:54 PM [facility] Hematocrit 24.2(L) 35.0 - 45.0 % 10/27/2022 8:54 PM [facility] MCV 96.0 80.7 - 98.3 fL 10/27/2022 8:54 PM [facility] MCH 30.2 26.7 - 34.0 pg 10/27/2022 8:54 PM [facility] MCHC 31.4 30.8 - 35.9 g/dL 10/27/2022 8:54 PM [facility] RDW-SD 47.9 36.0 - 50.0 fL 10/27/2022 8:54 PM [facility] RDW-CV 13.8 11.2 - 14.8 % 10/27/2022 8:54 PM [facility] Platelet Count 486(H) 150 - 400 10? 3 /uL 10/27/2022 8:54 PM CDT [facility] MPV 10.6 9.4 - 12.9 fL 10/27/2022 8:54 PM CDT [facility] nRBC Absolute 0.11(H) 0 10? 3 /uL 10/27/2022 8:54 PM CDT [facility] nRBC Auto 0.5(H) 0 /100 WBC 10/27/2022 8:54 PM CDT [facility] Blood BLOOD SPECIMEN / Unknown Venipuncture / Unknown 10/27/2022 8:29 PM CDT 10/27/2022 8:36 PM CDT Jim Walter MD LAB - HEMATOLOGY OR DERABLES Performing Organization Address [facility]/ZIP Co de Phone Number [address] [address], [place] [phone] * (ABNORMAL) PTT [facility] (10/27/2022 6:55 PM CDT) APTT 96.4(H) 23.0 - 38.4 Seconds 10/27/2022 7:28 PM CDT [facility] Comment:Suggested therapeuti c range for full dose I.V. unfractionated heparin therapy for venous thromboembolism is 71 to 109 seconds. Blood BLOOD SPECIMEN / Unknown Venipuncture / Unknown 10/27/2022 6:55 PM CDT 10/27/2022 7:06 PM CDT Jim Walter MD LAB - COAGULATION O RDERABLES [address] [address], [place] [phone] * ANTITHROMBIN III ACTIVITY (10/27/2022 6:55 PM CDT) Antithrombin III Activity 91.0 80.0 - 120.0 % 10/27/2022 7:42 PM CDT [facility] Blood BLOOD SPECIMEN / Unknown Venipuncture / Unknown 10/27/2022 6:55 PM CDT 10/27/2022 7:06 PM CDT Narrative [facility] - 10/27/2022 7:42 PM CDT Thrombin inhibitors (i.e., hirudin, argatroban...) present in the sample to be tested may lead to an over-estimation of the AT level. Shahbaz Bowen MD LAB - COAGULATION OR DERABLES Performing Organization Address [facility]/ZIP Co de Phone Number [address] [address], [place] [phone] * (ABNORMAL) GLUCOSE - POINT OF CARE (10/27/2022 4:56 PM CDT) Glucose WB/POC 143(H) 70 - 115 mg/dL 10/27/2022 4:57 PM CDT [facility] Specimen Type Cap Fingerstick 2022 4:57 PM CDT [facility] Blood BLOOD SPECIMEN / Unknown 10/27/2022 4:56 PM CDT 10/27/2022 4:57 PM CDT Jim Walter MD LAB - POINT OF CARE ORDERABLES Performing Organization Address [facility] Co de Phone Number [address] [address], [place] [phone] * CULTURE URINE (10/27/2022 12:08 PM CDT) Culture Urine No growth (<100 CFU/mL) ROSELIA 10/28/2022 10:36 PM CDT [facility] Urine URINE SPECIMEN OBTAINED BY CLEAN CATCH PROCEDURE / Unknown Collection / Unknown 10/27/2022 12:08 PM CDT 10/27/2022 12:17 PM CDT Emir Vail MD LAB - MICROBIOLOGY O RDERABLES Performing Organization Address City/[facility]/ZIP Co de Phone Number [facility] [address] [place] [address], [place] [phone] * (ABNORMAL) URINALYSIS REFLEX MICROSCOPIC REFLEX CULTURE (10/27/2022 12:08 PM CDT) Color UA Yellow Straw, Yellow 10/27/2022 1:14 PM CDT [facility] Clarity UA Slt Cloudy(A) Clear 10/27/2022 1:14 PM CDT [facility] Specific [place] UA 1.018 1.005 - 1.030 10/27/2022 1:14 PM CDT [facility] pH UA 6.0 5.0 - 8.0 pH 10/27/2022 1:14 PM CDT [facility] Protein UA Negative Negative 10/27/2022 1:14 PM CDT [facility] Glucose UA Negative Negative 10/27/2022 1:14 PM CDT [facility] Ketone UA Negative Negative 10/27/2022 1:14 PM CDT [facility] Bilirubin UA Negative Negative 10/27/2022 1:14 PM CDT [facility] Blood UA Negative Negative 10/27/2022 1:14 PM CDT [facility] Nitrite UA Negative Negative 10/27/2022 1:14 PM CDT [facility] Leukocyte Esterase Negative Negative 10/27/2022 1:14 PM CDT [facility] Urobilinogen UA Negative Negative mg/dL 10/27/2022 1:14 PM CDT [facility] Comment UA Microscopic not indicated. 10/27/2022 1:14 PM CDT [facility] Urine URINE SPECIMEN OBTAINED BY CLEAN CATCH PROCEDURE / Unknown Collection / Unknown 10/27/2022 12:08 PM CDT 10/27/2022 12:17 PM CDT Narrative [facility] - 10/27/2022 1:14 PM CDT Emir Vail MD LAB - URINALYSIS ORD ERABLES [facility] [address] [place] [id number], [facility] [phone] * MYCOPLASMA PNEUMONIAE AB IGM (10/27/2022 11:58 AM CDT) Mycoplasma Antibody IgM 0.09 <=0.76 U/L 10/29/2022 11:24 PM CDT [facility] ([facility]) Comment: INTERPRETIVE INFORMATION: ??Mycoplasma pneumoniae Ab, [...] more ?than 12 months post-infection. Performed By: [facility] [address] [place] [address] Transportation Security Screener: Boo Bond MD, PhD CLIA Number: [id number] Blood BLOOD SPECIMEN / Unknown Venipuncture / Unknown 10/27/2022 11:58 AM CDT 10/27/2022 12:17 PM CDT Emir Vail MD LAB - SEROLOGY ORDER [facility] Group [facility]) [address] [place] [address], [facility] * MYCOPLASMA PNEUMONIAE AB IGG (10/27/2022 11:58 AM CDT) Mycoplasma Antibody IgG 0.05 <=0.09 U/L 10/29/2022 11:24 PM CDT [facility] Group [facility] ([facility]) Comment: INTERPRETIVE INFORMATION: ??Mycoplasma pneumoniae Ab, [...] other is below 0.20 U/L. Performed By: [facility] [address] [place] [address] Transportation Security Screener: Boo Bond MD, PhD CLIA Number: [id number] Blood BLOOD SPECIMEN / Unknown Venipuncture / Unknown 10/27/2022 11:58 AM CDT 10/27/2022 12:16 PM CDT Emir Vail MD LAB - SEROLOGY ORDER [facility]) [address] [place] [address], [facility] * CHLAMYDIA ANTIBODY IGG/IGM PANEL (10/27/2022 11:58 AM CDT) Pathologist [facility] C Pneumoniae Antibody IgG Titer <1:64 <1:64 10/29/2022 8:32 PM CDT [facility] ([facility]) Chlamydia Pneumoniae Antibody IgM Titer <1:20 <1:20 10/29/2022 8:32 PM CDT [facility]) Chlamydia trachomatis Antibody IgM Titer <1:20 <1:20 10/29/2022 8:32 PM CDT [facility]) Chlamydia psittacI Antibody IgM Titer <1:20 <1:20 10/29/2022 8:32 PM CDT [facility]) Chlamydia trachomatis Antibody IgG Titer <1:64 <1:64 10/29/2022 8:32 PM CDT [facility]) Chlamydia psittacI Antibody IgG Titer <1:64 <1:64 10/29/2022 8:32 PM CDT [facility]) Comment: INTERPRETIVE INFORMATION: C. psittaci IgG Titer [...] developed and its performance characteristics determined by [facility]. It has not been cleared or approved by the US Food and Drug Administration. This test was performed in a CLIA certified laboratory and is intended for clinical purposes. Performed By: [facility] [employer] [address] [place] [address] Transportation Security Screener: Boo Bond MD, PhD CLIA Number: [id number] Blood BLOOD SPECIMEN / Unknown Venipuncture / Unknown 10/27/2022 11:58 AM CDT 10/27/2022 12:17 PM CDT Emir Vail MD LAB - CHEMISTRY ORDE HIRAL [facility]) [address] [place] [address], [facility] * Q FEVER IGG/IGM AB PANEL RFLX TITER (10/27/2022 11:58 AM CDT) [facility] Coxiella burnetii Antibody IgG Phase 1 Screen Negative Negative 10/31/2022 12:29 AM CDT [facility] Group [employer] ([facility]) Comment: INTERPRETIVE INFORMATION: C. Burnetii Abs, [...] 2 Screen Negative Negative 10/31/2022 12:29 AM [facility] ([facility]) Comment: INTERPRETIVE INFORMATION: C. Burnetii Abs, [...] 1 Screen Negative Negative 10/31/2022 12:29 AM [facility] ([facility]) Comment: Coxiella burnetii (Q-Fever) Antibody IgM, [...] 2 Screen Negative Negative 10/31/2022 12:29 AM [facility] ([facility]) Comment: Coxiella burnetii (Q-Fever) Antibody IgM, [...] acute infection or during convalescence. Performed By: [facility] [address] [place] [address] Transportation Security Screener: Boo Bond MD, PhD CLIA Number: [id number] Blood BLOOD SPECIMEN / Unknown Venipuncture / Unknown 10/27/2022 11:58 AM CDT 10/27/2022 12:16 PM CDT Emir Vail MD LAB - SEROLOGY ORDER NISSA [facility]) [address] [place] [address] * BARTONELLA SPECIES PCR (10/27/2022 11:58 AM CDT) Pathologist [facility] Bartonella Source Plasma 023 3:38 PM CDT [facility]) Bartonella Species by PCR Not Detected 2022 3:38 PM CDT [facility]) Comment: NOT DETECTED - A negative result does not rule out the presence of PCR inhibitors in the patient specimen or assay specific nucleic acid in concentrations below the level of detection by the assay. INTERPRETIVE INFORMATION: Bartonella Species Detection by PCR This test was developed and its performance characteristics determined by [facility]. It has not been cleared or approved by the [place] Food and Drug Administration. This test was performed in a CLIA certified laboratory and is intended for clinical purposes. Performed By: [facility] [address] [place] [address] Transportation Security Screener: Boo Bond MD, PhD CLIA Number: [id number] Blood BLOOD SPECIMEN / Unknown Venipuncture / Unknown 10/27/2022 11:58 AM CDT 10/27/2022 12:16 PM CDT Emir Vail MD LAB - MICROBIOLOGY O RDERABLES [facility] [employer] [facility]) [address] [place] [address], [facility] * BARTONELLA HENSELAE ANTIBODY IGG (10/27/2022 11:58 AM CDT) Bartonella henselae Antibody IgG <1:64 10/29/2022 8:33 PM CDT [facility] [employer] ([facility]) Comment: INTERPRETIVE INFORMATION: Bartonella henselae Ab, [...] developed and its performance characteristics determined by [facility]. It has not been cleared or approved by the US Food and Drug Administration. This test was performed in a CLIA certified laboratory and is intended for clinical purposes. Performed By: [place] [address] Transportation Security Screener: Boo Bond MD, PhD CLIA Number: [id number] Blood BLOOD SPECIMEN / Unknown Venipuncture / Unknown 10/27/2022 11:58 AM CDT 10/27/2022 12:16 PM CDT Emir Vail MD LAB - SEROLOGY ORDER NISSA [facility]) [address] [place] [address], [facility] * BARTONELLA HENSELAE ANTIBODY IGM (10/27/2022 11:58 AM CDT) Bartonella henselae Antibody IgM < 1:16 10/29/2022 8:33 PM CDT [facility] ([facility]) Comment: INTERPRETIVE INFORMATION: Bartonella henselae Antibody, [...] developed and its performance characteristics determined by [facility]. It has not been cleared or approved by the US Food and Drug Administration. This test was performed in a CLIA certified laboratory and is intended for clinical purposes. Performed By: [facility] [address] [place] [address] Transportation Security Screener: Boo Bond MD, PhD CLIA Number: [id number] Blood BLOOD SPECIMEN / Unknown Venipuncture / Unknown 10/27/2022 11:58 AM CDT 10/27/2022 12:16 PM CDT Emir Vail MD LAB - SEROLOGY ORDER NISSA Performing Organization Address [facility] Co de Phone Number [facility] ([facility]) [address] [place] [address] * CULTURE BLOOD AFB (10/27/2022 11:58 AM CDT) Culture No acid-fast bacillus isolated 12/04/2022 6:56 AM CDT [facility] Blood PERIPHERAL BLOOD / Unknown Venipuncture / Unknown 10/27/2022 11:58 AM CDT 10/27/2022 12:13 PM CDT Emir Vail MD LAB - MICROBIOLOGY O RDERABLES Performing Organization Address [facility] Co de Phone Number [facility] [address] [facility] [address] [phone] * CULTURE BLOOD FUNGUS (10/27/2022 11:58 AM CDT) Culture No fungus isolated ROSELIA 12/04/2022 6:38 AM CDT [facility] Blood PERIPHERAL BLOOD / Unknown Venipuncture / Unknown 10/27/2022 11:58 AM CDT 10/27/2022 12:13 PM CDT Emir Vail MD LAB - MICROBIOLOGY O RDERABLES [facility] [address] [place] [address], [facility] [phone] * (ABNORMAL) PTT [facility] (10/27/2022 11:58 AM CDT) APTT 44.7(H) 23.0 - 38.4 Seconds 10/27/2022 1:19 PM CDT [facility] Comment:Suggested therapeuti c range for full dose I.V. unfractionated heparin therapy for venous thromboembolism is 71 to 109 seconds. Blood BLOOD SPECIMEN / Unknown Venipuncture / Unknown 10/27/2022 11:58 AM CDT 10/27/2022 12:39 PM CDT Emir Vail MD LAB - COAGULATION OR DERABLES [address] [address], [place] [phone] * (ABNORMAL) GLUCOSE - POINT OF CARE (10/27/2022 11:13 AM CDT) Pathologist [facility] Glucose WB/POC 140(H) 70 - 115 mg/dL 10/27/2022 11:16 AM CDT [facility] Specimen Type Cap Fingerstick 2022 11:16 AM CDT [facility] Blood BLOOD SPECIMEN / Unknown 10/27/2022 11:13 AM CDT 10/27/2022 11:16 AM CDT Emir Vail MD LAB - POINT OF CARE ORDERABLES [address] [address], [place] [phone] * XR CHEST 1VW PORTABLE (10/27/2022 10:19 AM CDT) Anatomical Region Laterality Modality Chest Radiographic Irene ging 10/27/2022 1:44 PM CDT Narrative 10/27/2022 2:58 PM CDT PROCEDURE: ??XR CHEST 1VW PORTABLE, DATE/TIME OF EXAM: ??10/27/2022 10:19 AM, LOCATION ??[facility] INDICATION: D72.829: Leukocytosis, unspecified type ADDITIONAL CLINICAL INFORMATION: Ordering Provider Reason For Exam: ??any concern for pneumonia COMPARISON: Chest radiograph dated 10/25/2022. FINDINGS/IMPRESSION: Enteric tube courses below the diaphragm and out of the oeuen-yt-jvbc. RUQ surgical clips are present. No focal consolidation. No pleural effusion or pneumothorax. The cardiomediastinal silhouette is normal. Report dictated by Agnes Olmos DO (president mortgage [employer]). Pepe Ornelas MD have personally reviewed and interpreted this examination/study. > Interpreting Provider: Pepe Gonzalez MD on 10/27/2022 2:58 PM Procedure Note Pepe Gonzalez MD - 10/27/2022 PROCEDURE: XR CHEST 1VW PORTABLE, DATE/TIME OF EXAM: 10/27/2022 10:19AM, LOCATION [facility] INDICATION: D72.829: Leukocytosis, unspecified type ADDITIONAL CLINICAL INFORMATION: Ordering Provider Reason For Exam: any concern for pneumonia COMPARISON: Chest radiograph dated 10/25/2022. FINDINGS/IMPRESSION: Enteric tube courses below the diaphragm and out of the gqndn-wa-ddqq.RUQ surgical clips are present. No focal consolidation. No pleural effusion or pneumothorax. The cardiomediastinal silhouette is normal. Report dictated by Agnes Olmos DO (president mortgage company). Pepe Ornelas MD have personally reviewed and interpreted this examination/study. > Interpreting Provider: Pepe Gonzalez MD on 10/27/2022 2:58 PM Emir Vail MD DIAGNOSTIC IMAGING O TIOERAJESSE * (ABNORMAL) GLUCOSE - POINT OF CARE (10/27/2022 6:33 AM CDT) Glucose WB/POC 128(H) 70 - 115 mg/dL 10/27/2022 6:39 AM CDT [facility] Specimen Type Cap Fingerstick 2022 6:39 AM CDT [facility] Blood BLOOD SPECIMEN / Unknown 10/27/2022 6:33 AM CDT 10/27/2022 6:39 AM CDT Emir Vail MD LAB - POINT OF CARE ORDERABLES Performing Organization Address [facility] Co de Phone Number [address] [address], [facility] [phone] * (ABNORMAL) PTT [facility] (10/27/2022 6:08 AM CDT) APTT 58.6(H) 23.0 - 38.4 Seconds 10/27/2022 6:37 AM CDT [facility] Comment:Suggested therapeuti c range for full dose I.V. unfractionated heparin therapy for venous thromboembolism is 71 to 109 seconds. Blood BLOOD SPECIMEN / Unknown Venipuncture / Unknown 10/27/2022 6:08 AM CDT 10/27/2022 6:14 AM CDT Emir Vail MD LAB - COAGULATION OR DERABLES Performing Organization Address [facility] Co de Phone Number [address] [address], [facility] [phone] * PT-INR [facility] (10/27/2022 6:08 AM CDT) PT 13.7 12.1 - 14.8 Seconds 10/27/2022 6:36 AM CDT [facility] INR 1.1 See Comment 10/27/2022 6:36 AM CDT [facility] Comment:The suggested therap eutic range for standard coumadin (warfarin) therapy is an INR of 2.0-3.0. For high-risk patients (Mechanical Mitral Valve Prosthesis, etc.), the suggested prophylactic therapeutic range is an INR of 2.5-3.5. 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 3 /uL 10/27/2022 4:31 AM [facility] Total Cell Count 100 10/28/19 4:31 AM [facility] Neutrophils Absolute Manual 12.09(H) 1.60 - 7.00 10? 3 /uL 10/27/2022 4:31 AM [facility] Comment:(BANDS+SEGS) x WBC = NEUT # (ANC) Lymphocyte Absolute Manual 5.07(H) 1.10 - 3.90 10? 3 /uL 10/27/2022 4:31 AM [facility] Monocytes Absolute Manual 0.78 0.26 - 1.07 10? 3 /uL 10/27/2022 4:31 AM [facility] Eosinophils Absolute Manual 1.17(H) 0.00 - 0.47 10? 3 /uL 10/27/2022 4:31 AM [facility] Neutrophil % Manual 62 35 - 70 % 10/27/2022 4:31 AM [facility] Lymphocyte % Manual 26 20 - 43 % 10/27/2022 4:31 AM [facility] Monocytes % Manual 4(L) 5 - 13 % 10/27/2022 4:31 AM [facility] Eosinophils % Manual 6 0 - 6 % 10/27/2022 4:31 AM [facility] Metamyelocyte % Manual 1(H) 0 % 10/27/2022 4:31 AM [facility] Myelocytes % Manual 1(H) 0 % 10/27/2022 4:31 AM [facility] Platelet Estimate Increased (A) Adequate 10/27/2022 4:31 AM [facility] Polychromasia Occasiona l(A) None 10/27/2022 4:31 AM [facility] Ovalocytes Occasiona l(A) None 10/27/2022 4:31 AM [facility] [place] Cells Occasiona l(A) None 10/27/2022 4:31 AM [facility] Tear Drop Cells Occasiona l(A) None 10/27/2022 4:31 AM [facility] Smudge Cells Rare(A) None 10/27/2022 4:31 AM CDT [facility] Large Platelet Count Occasiona l(A) None 10/27/2022 4:31 AM CDT [facility] Blood BLOOD SPECIMEN / Unknown Venipuncture / Unknown 10/27/2022 12:54 AM CDT 10/27/2022 1:02 AM CDT Emri Vail MD LAB - HEMATOLOGY ORD ERABLES Performing Organization Address City/[facility]/ZIP Co de Phone Number [address] [address], [facility] [phone] * (ABNORMAL) PTT [facility] (10/27/2022 12:54 AM CDT) APTT 59.5(H) 23.0 - 38.4 Seconds 10/27/2022 1:25 AM T [facility] Comment:Suggested therapeuti c range for full dose I.V. unfractionated heparin therapy for venous thromboembolism is 71 to 109 seconds. Blood BLOOD SPECIMEN / Unknown Venipuncture / Unknown 10/27/2022 12:54 AM CDT 10/27/2022 1:02 AM CDT Emir Vail MD LAB - COAGULATION OR DERABLES Performing Organization Address [facility] Co de Phone Number [address] [address], [facility] [phone] * (ABNORMAL) BASIC METABOLIC PANEL (CALCIUM TOTAL) (10/27/2022 12:54 AM CDT) BUN 11 7 - 26 mg/dL 10/27/2022 1:28 AM T [facility] Creatinine 0.53(L) 0.56 - 0.96 mg/dL 10/27/2022 1:28 AM T [facility] Sodium 138 136 - 145 mmol/L 10/27/2022 1:28 AM T [facility] Potassium 3.5 3.5 - 4.5 mmol/L 10/27/2022 1:28 AM T [facility] Chloride 107 98 - 107 mmol/L 10/27/2022 1:28 AM [facility] CO2 24 22 - 29 mmol/L 10/27/2022 1:28 AM [facility] Glucose 137(H) 70 - 115 mg/dL 10/27/2022 1:28 AM [facility] Calcium 8.4 8.4 - 10.2 mg/dL 10/27/2022 1:28 AM [facility] Anion Gap 11 8 - 18 10/27/2022 1:28 AM [facility] BUN/Creatinine Ratio 21 7 - 23 10/27/2022 1:28 AM [facility] Osmolality Calculated 288 270 - 300 mOsm/kg 10/27/2022 1:28 AM [facility] eGFR by CKD-EPI >90 >=90 mL/min/1.7 3 m2 10/27/2022 1:28 AM [facility] Blood BLOOD SPECIMEN / Unknown Venipuncture / Unknown 10/27/2022 12:54 AM CDT 10/27/2022 1:02 AM T Emir Vail MD LAB - CHEMISTRY BIBIANA BLACKMAN [facility] Organization Address City/State/ZIP Co de Phone Number [facility] [address] [place] [address], [facility] [phone] * (ABNORMAL) CBC W AUTO DIFFERENTIAL (10/27/2022 12:54 AM CDT) WBC 19.5(H) 3.5 - 10.5 10? 3 /uL 10/27/2022 1:23 AM [facility] RBC 2.60(L) 3.80 - 5.20 10? 6 /uL 10/27/2022 1:23 AM [facility] Hemoglobin 8.0(L) 12.0 - 15.6 g/dL 10/27/2022 1:23 AM [facility] Hematocrit 24.6(L) 35.0 - 45.0 % 10/27/2022 1:23 AM [facility] MCV 94.6 80.7 - 98.3 fL 10/27/2022 1:23 AM [facility] MCH 30.8 26.7 - 34.0 pg 10/27/2022 1:23 AM [facility] MCHC 32.5 30.8 - 35.9 g/dL 10/27/2022 1:23 AM [facility] RDW-SD 45.8 36.0 - 50.0 fL 10/27/2022 1:23 AM [facility] RDW-CV 13.5 11.2 - 14.8 % 10/27/2022 1:23 AM [facility] Platelet Count 519(H) 150 - 400 10? 3 /uL 10/27/2022 1:23 AM [facility] MPV 10.1 9.4 - 12.9 fL 10/27/2022 1:23 AM [facility] nRBC Absolute 0.08(H) 0 10? 3 /uL 10/27/2022 1:23 AM [facility] nRBC Auto 0.4(H) 0 /100 WBC 10/27/2022 1:23 AM [facility] Blood BLOOD SPECIMEN / Unknown Venipuncture / Unknown 10/27/2022 12:54 AM CDT 10/27/2022 1:02 AM CDT Emir Vail MD LAB - HEMATOLOGY ORD ERABLES [address] [address], [place] [phone] * PHOSPHORUS BLOOD (10/27/2022 12:54 AM CDT) Phosphorus 3.5 2.9 - 5.1 mg/dL 10/27/2022 1:28 AM T [facility] Blood BLOOD SPECIMEN / Unknown Venipuncture / Unknown 10/27/2022 12:54 AM CDT 10/27/2022 1:02 AM CDT Emir Vail MD LAB - CHEMISTRY ORDDanyelle BLACKMAN [address] [address], [place] [phone] * MAGNESIUM BLOOD (10/27/2022 12:54 AM CDT) Magnesium 2.0 1.6 - 2.6 mg/dL 10/27/2022 1:28 AM CDT [facility] Blood BLOOD SPECIMEN / Unknown Venipuncture / Unknown 10/27/2022 12:54 AM CDT 10/27/2022 1:02 AM CDT Emir Vail MD LAB - CHEMISTRY ORDE HIRAL Performing Organization Address City/[facility]/ZIP Co de Phone Number [address] [address], [facility] [phone] * (ABNORMAL) PTT [facility] (10/26/2022 9:12 PM CDT) APTT 65.0(H) 23.0 - 38.4 Seconds 10/26/2022 9:46 PM CDT [facility] Comment:Suggested therapeuti c range for full dose I.V. unfractionated heparin therapy for venous thromboembolism is 71 to 109 seconds. Blood BLOOD SPECIMEN / Unknown Venipuncture / Unknown 10/26/2022 9:12 PM CDT 10/26/2022 9:18 PM CDT Emir Vail MD LAB - COAGULATION OR DERABLES Performing Organization Address City/[facility]/ZIP Co de Phone Number [address] [address], [facility] [phone] * (ABNORMAL) GLUCOSE - POINT OF CARE (10/26/2022 6:33 PM CDT) Glucose WB/POC 122(H) 70 - 115 mg/dL 10/26/2022 6:34 PM CDT [facility] Specimen Type Cap Fingerstick 2022 6:34 PM CDT [facility] Blood BLOOD SPECIMEN / Unknown 10/26/2022 6:33 PM CDT 10/26/2022 6:34 PM CDT Emir Vail MD LAB - POINT OF CARE ORDERABLES Performing Organization Address City/[facility]/ZIP Co de Phone Number [address] [address], [facility] [phone] * (ABNORMAL) PTT [facility] (10/26/2022 3:59 PM CDT) APTT 52.9(H) 23.0 - 38.4 Seconds 10/26/2022 4:35 PM CDT [facility] Comment:Suggested therapeuti c range for full dose I.V. unfractionated heparin therapy for venous thromboembolism is 71 to 109 seconds. Blood BLOOD SPECIMEN / Unknown Venipuncture / Unknown 10/26/2022 3:59 PM CDT 10/26/2022 4:12 PM CDT Emir Vail MD LAB - COAGULATION OR DERABLES Performing Organization Address [facility]/ZIP Co de Phone Number [address] [address], [facility] [phone] * VAS ARTERIAL MULTILEVEL LE (10/26/2022 2:59 PM CDT) Anatomical Region Laterality Modality Intravascular Ul trasound 10/26/2022 1:32 AM CDT Narrative Procedure Note Daniella Jose MD - 10/27/2022 Emir Vail MD VASCULAR LAB ORDERAB LES * (ABNORMAL) GLUCOSE - POINT OF CARE (10/26/2022 12:15 PM CDT) Glucose WB/POC 122(H) 70 - 115 mg/dL 10/26/2022 12:16 PM CDT [facility] Specimen Type Cap Fingerstick 2022 12:16 PM CDT [facility] Blood BLOOD SPECIMEN / Unknown 10/26/2022 12:15 PM CDT 10/26/2022 12:16 PM CDT Emir Vail MD LAB - POINT OF CARE ORDERABLES Performing Organization Address City/[facility]/ZIP Co de Phone Number [address] [address], [facility] [phone] * (ABNORMAL) PTT [facility] (10/26/2022 11:24 AM CDT) Pathologist [facility] APTT 51.1(H) 23.0 - 38.4 Seconds 10/26/2022 11:55 AM CDT [facility] Comment:Suggested therapeuti c range for full dose I.V. unfractionated heparin therapy for venous thromboembolism is 71 to 109 seconds. Blood BLOOD SPECIMEN / Unknown Venipuncture / Unknown 10/26/2022 11:24 AM CDT 10/26/2022 11:31 AM CDT Emir Vail MD LAB - COAGULATION OR DERABLES Performing Organization Address [facility]/ZIP Co de Phone Number [address] [address], [facility] [phone] * VANCOMYCIN LEVEL TROUGH (10/26/2022 8:38 AM CDT) [facility] Vancomycin Trough 14.0 10.0 - 20.0 ug/mL 10/26/2022 9:59 AM CDT [facility] Blood BLOOD SPECIMEN / Unknown Venipuncture / Unknown 10/26/2022 8:38 AM CDT 10/26/2022 8:45 AM CDT Narrative [facility] - 10/26/2022 9:59 AM CDT See institution protocol. Emir Vail MD LAB - CHEMISTRY ORDE RABLES Performing Organization Address City/[facility]/ZIP Co de Phone Number [address] [address], [facility] [phone] * LAB MISC TEST (10/26/2022 7:37 AM CDT) Test Name mycoplasma PCR , blood 12/09/2022 1:25 PM CDT [facility] Test Result See Scanned Report 12/09/2022 1:25 PM CDT [facility] Comment Ref Lab [facility] 12/09/2022 1:25 PM CDT [facility] Blood BLOOD SPECIMEN / Unknown Venipuncture / Unknown 10/26/2022 7:37 AM CDT 10/26/2022 7:39 AM CDT Emir Vail MD LAB SEND OUT Performing Organization Address City/[facility]/ZIP Co de Phone Number [facility] [address] [place] [address] * (ABNORMAL) GLUCOSE - POINT OF CARE (10/26/2022 7:12 AM CDT) Glucose WB/POC 144(H) 70 - 115 mg/dL 10/26/2022 7:13 AM CDT [facility] Specimen Type Cap Fingerstick 2022 7:13 AM CDT [facility] Blood BLOOD SPECIMEN / Unknown 10/26/2022 7:12 AM CDT 10/26/2022 7:13 AM CDT Emir Vail MD LAB - POINT OF CARE ORDERABLES Performing Organization Address [facility]/ZIP Co de Phone Number [address] [address], [place] [phone] * (ABNORMAL) PTT [facility] (10/26/2022 6:47 AM CDT) APTT 44.3(H) 23.0 - 38.4 Seconds 10/26/2022 7:17 AM CDT [facility] Comment:Suggested therapeuti c range for full dose I.V. unfractionated heparin therapy for venous thromboembolism is 71 to 109 seconds. Blood BLOOD SPECIMEN / Unknown Venipuncture / Unknown 10/26/2022 6:47 AM CDT 10/26/2022 6:52 AM CDT Emir Vail MD LAB - COAGULATION OR DERABLES Performing Organization Address City/[facility]/ZIP Co de Phone Number [address] [address], [place] [phone] * CT HEAD WO CONTRAST (10/26/2022 4:55 [...] report is dictated by Miranda Bowen MD (president mortgage company) I, Oriana Suarez MD have personally reviewed and interpreted this examination/study. 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 > Interpreting Provider: Oriana Suarez MD on 10/26/2022 8:19 AM Emir Vail MD CT ORDERABLES * PT-INR [facility] (10/26/2022 4:26 AM CDT) PT 13.6 12.1 - 14.8 Seconds 10/26/2022 4:59 AM CDT [facility]OR[facility]ORY [facility] INR 1.0 See Comment 10/26/2022 4:59 AM CDT [facility] Comment:The suggested therap eutic range for standard coumadin (warfarin) therapy is an INR of 2.0-3.0. For high-risk patients (Mechanical Mitral Valve Prosthesis, etc.), the suggested prophylactic therapeutic range is an INR of 2.5-3.5. Blood BLOOD SPECIMEN / Unknown Venipuncture / Unknown 10/26/2022 4:26 AM CDT 10/26/2022 4:32 AM CDT Emir Vail MD LAB - COAGULATION OR DERABLES Performing Organization Address [facility]/ZIP Co de Phone Number [address] [id number], [facility] [phone] * (ABNORMAL) PTT [facility] (10/26/2022 1:55 AM CDT) APTT 20.5(L) 23.0 - 38.4 Seconds 10/26/2022 2:26 AM CDT [facility] Comment:Suggested therapeuti c range for full dose I.V. unfractionated heparin therapy for venous thromboembolism is 71 to 109 seconds. Blood BLOOD SPECIMEN / Unknown Venipuncture / Unknown 10/26/2022 1:55 AM CDT 10/26/2022 2:00 AM CDT Emir Vail MD LAB - COAGULATION OR DERABLES Performing Organization Address City/[facility]/ZIP Co de Phone Number [address] [address], [facility] [phone] * (ABNORMAL) BASIC METABOLIC PANEL (CALCIUM TOTAL) (10/26/2022 12:02 AM CDT) BUN 13 7 - 26 mg/dL 10/26/2022 12:30 AM CDT [facility] Creatinine 0.54(L) 0.56 - 0.96 mg/dL 10/26/2022 12:30 AM [facility] Sodium 139 136 - 145 mmol/L 10/26/2022 12:30 AM [facility] Potassium 3.3(L) 3.5 - 4.5 mmol/L 10/26/2022 12:30 AM [facility] Chloride 105 98 - 107 mmol/L 10/26/2022 12:30 AM [facility] CO2 24 22 - 29 mmol/L 10/26/2022 12:30 AM [facility] Glucose 113 70 - 115 mg/dL 10/26/2022 12:30 AM [facility] Calcium 8.4 8.4 - 10.2 mg/dL 10/26/2022 12:30 AM [facility] Anion Gap 13 8 - 18 10/26/2022 12:30 AM [facility] BUN/Creatinine Ratio 24(H) 7 - 23 10/26/2022 12:30 AM [facility] Osmolality Calculated 289 270 - 300 mOsm/kg 10/26/2022 12:30 AM [facility] eGFR by CKD-EPI >90 >=90 mL/min/1.7 3 m2 10/26/2022 12:30 AM [facility] Blood BLOOD SPECIMEN / Unknown Venipuncture / Unknown 10/26/2022 12:02 AM CDT 10/26/2022 12:06 AM T Emir Vail MD LAB - CHEMISTRY BIBIANA BLACKMAN [facility] Organization Address City/[facility] Co de Phone Number [address] [address], [facility] [phone] * (ABNORMAL) CBC W AUTO DIFFERENTIAL (10/26/2022 12:02 AM CDT) WBC 16.1(H) 3.5 - 10.5 10? 3 /uL 10/26/2022 12:12 AM [facility] RBC 2.64(L) 3.80 - 5.20 10? 6 /uL 10/26/2022 12:12 AM [facility] Hemoglobin 8.1(L) 12.0 - 15.6 g/dL 10/26/2022 12:12 AM [facility] Hematocrit 25.1(L) 35.0 - 45.0 % 10/26/2022 12:12 AM [facility] MCV 95.1 80.7 - 98.3 fL 10/26/2022 12:12 AM [facility] MCH 30.7 26.7 - 34.0 pg 10/26/2022 12:12 AM [facility] MCHC 32.3 30.8 - 35.9 g/dL 10/26/2022 12:12 AM [facility] RDW-SD 46.2 36.0 - 50.0 fL 10/26/2022 12:12 AM [facility] RDW-CV 13.5 11.2 - 14.8 % 10/26/2022 12:12 AM [facility] Platelet Count 446(H) 150 - 400 10? 3 /uL 10/26/2022 12:12 AM [facility] MPV 10.0 9.4 - 12.9 fL 10/26/2022 12:12 AM [facility] nRBC Absolute 0.04(H) 0 10? 3 /uL 10/26/2022 12:12 AM [facility] nRBC Auto 0.2(H) 0 /100 WBC 10/26/2022 12:12 AM [facility] Neutrophils % 63.5 35.0 - 70.0 % 10/26/2022 12:12 AM [facility] Lymphocytes % 22.7 20.0 - 43.0 % 10/26/2022 12:12 AM [facility] Monocytes % 8.3 5.0 - 13.0 % 10/26/2022 12:12 AM [facility] Eosinophils % 3.2 0.0 - 6.0 % 10/26/2022 12:12 AM [facility] Basophil % 0.4 0.0 - 2.0 % 10/26/2022 12:12 AM [facility] Neutrophils Absolute 10.24(H) 1.60 - 7.00 10? 3 /uL 10/26/2022 12:12 AM CDT [facility] Lymphocyte Absolute 3.65 1.10 - 3.90 10? 3 /uL 10/26/2022 12:12 AM CDT [facility] Monocytes Absolute 1.34(H) 0.26 - 1.07 10? 3 /uL 10/26/2022 12:12 AM CDT [facility] Eosinophils Absolute 0.51(H) 0.00 - 0.47 10? 3 /uL 10/26/2022 12:12 AM CDT [facility] Basophils Absolute 0.06 0.00 - 0.08 10? 3 /uL 10/26/2022 12:12 AM CDT [facility] Immature Granulocytes % 1.9(H) 0.0 - 1.0 % 10/26/2022 12:12 AM CDT [facility] Immature Granulocytes Absolute 0.30 10/26/2022 12:12 AM CDT [facility] Blood BLOOD SPECIMEN / Unknown Venipuncture / Unknown 10/26/2022 12:02 AM CDT 10/26/2022 12:06 AM CDT Emir Vail MD LAB - HEMATOLOGY ORD ERABLES [address] [address], [facility] [phone] * PHOSPHORUS BLOOD (10/26/2022 12:02 AM CDT) Phosphorus 3.5 2.9 - 5.1 mg/dL 10/26/2022 12:30 AM CDT [facility] Blood BLOOD SPECIMEN / Unknown Venipuncture / Unknown 10/26/2022 12:02 AM CDT 10/26/2022 12:06 AM CDT Emir Vail MD LAB - CHEMISTRY ORDE HIRAL [address] [address], [place] [phone] * MAGNESIUM BLOOD (10/26/2022 12:02 AM CDT) Magnesium 1.9 1.6 - 2.6 mg/dL 10/26/2022 12:30 AM CDT [facility] Blood BLOOD SPECIMEN / Unknown Venipuncture / Unknown 10/26/2022 12:02 AM CDT 10/26/2022 12:06 AM CDT Emir Vail MD LAB - CHEMISTRY ORDE HIRAL [address] [address], [place] [phone] * GLUCOSE - POINT OF CARE (10/25/2022 11:14 PM CDT) Glucose WB/POC 114 70 - 115 mg/dL 10/25/2022 11:15 PM CDT [facility] Specimen Type Cap Fingerstick 2022 11:15 PM CDT [facility] Blood BLOOD SPECIMEN / Unknown 10/25/2022 11:14 PM CDT 10/25/2022 11:15 PM CDT Emir Vail MD LAB - POINT OF CARE ORDERABLES Performing Organization Address [facility]/ZIP Co de Phone Number [address] [address], [place] [phone] * PTT [facility] (10/25/2022 9:02 PM CDT) APTT 33.3 23.0 - 38.4 Seconds 10/25/2022 9:32 PM CDT [facility] Comment:Suggested therapeuti c range for full dose I.V. unfractionated heparin therapy for venous thromboembolism is 71 to 109 seconds. Blood BLOOD SPECIMEN / Unknown Venipuncture / Unknown 10/25/2022 9:02 PM CDT 10/25/2022 9:10 PM CDT Emir Vail MD LAB - COAGULATION OR DERABLES Performing Organization Address City/[facility]/ZIP Co de Phone Number [address] [address], [place] [phone] * (ABNORMAL) GLUCOSE - POINT OF CARE (10/25/2022 6:54 PM CDT) Glucose WB/POC 122(H) 70 - 115 mg/dL 10/25/2022 6:56 PM CDT [facility] Specimen Type Cap Fingerstick 2022 6:56 PM CDT [facility] Blood BLOOD SPECIMEN / Unknown 10/25/2022 6:54 PM CDT 10/25/2022 6:55 PM CDT Emir Vail MD LAB - POINT OF CARE ORDERABLES [address] [address], [place] [phone] * PTT [facility] (10/25/2022 4:41 PM CDT) APTT 24.8 23.0 - 38.4 Seconds 10/25/2022 5:19 PM CDT [facility] Comment:Suggested therapeuti c range for full dose I.V. unfractionated heparin therapy for venous thromboembolism is 71 to 109 seconds. Blood BLOOD SPECIMEN / Unknown Venipuncture / Unknown 10/25/2022 4:41 PM CDT 10/25/2022 4:55 PM CDT Emir Vail MD LAB - COAGULATION OR DERABLES Performing Organization Address City/[facility]/ZIP Co de Phone Number [address] [address], [place] [phone] * PT-INR [facility] (10/25/2022 4:41 PM CDT) PT 13.4 12.1 - 14.8 Seconds 10/25/2022 5:19 PM CDT [facility] INR 1.0 See Comment 10/25/2022 5:19 PM CDT [facility] Comment:The suggested therap eutic range for standard coumadin (warfarin) therapy is an INR of 2.0-3.0. For high-risk patients (Mechanical Mitral Valve Prosthesis, etc.), the suggested prophylactic therapeutic range is an INR of 2.5-3.5. Blood BLOOD SPECIMEN / Unknown Venipuncture / Unknown 10/25/2022 4:41 PM CDT 10/25/2022 4:55 PM CDT Emir Vail MD LAB - COAGULATION OR DERABLES Performing Organization Address City/State/[facility] Co de Phone Number [address] [address], [facility] [phone] * CT CHEST ABDOMEN PELVIS W CONT [...] verification. > Dictated by Clarisa Cantrell MD (president mortgage company). I, Alexx Lopez have personally reviewed and interpreted this examination/study. 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 > Dictated by Clarisa Cantrell MD (president mortgage company). I, Alexx Lopez have personally reviewed and [...] report is dictated by Miranda Bowen MD (president mortgage company) I, Joni Fabian MD have personally reviewed and interpreted this examination/study. 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 Enteric tube courses below the diaphragm and out of the [id number]. There is severe left rotation of the patient in this study. There is no focal consolidation, pleural effusion, or pneumothorax. The left upper lobe pulmonary nodule noted on chest CT from same day is not visualized on this plain film. The cardiomediastinal silhouette is normal. The visible bony thorax is intact. Report dictated by Royer Stovall MD (president mortgage company). Alexx Ornelas have personally reviewed and interpreted this examination/study. 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 Enteric tube courses below the diaphragm and out of the [id number]-wxks. There is severe left rotation of the patient in this study. There is no focal consolidation, pleural effusion, or pneumothorax. The left upper lobe pulmonary nodule noted on chest CT from same day is not visualized on this plain film. The cardiomediastinal silhouette isnormal. The visible bony thorax is intact. Report dictated by Royer Stovall MD (president mortgage company). Alexx Ornelas have personally reviewed and interpreted this examination/study. > Interpreting Provider: Alexx Lopez on 10/26/2022 2:01 PM Shahbaz Bowen MD DIAGNOSTIC IMAGING O RDERABLES * CULTURE BLOOD (10/25/2022 9:00 AM CDT) Culture No growth day 5 ROSELIA 10/30/2022 1:30 PM CDT [facility] Blood PERIPHERAL BLOOD / Unknown Venipuncture / Unknown 10/25/2022 9:00 AM CDT 10/25/2022 9:21 AM CDT Emir Vail MD LAB - MICROBIOLOGY O RDDIMAS [facility] [address] [place] [address], [facility] [phone] * (ABNORMAL) GLUCOSE - POINT OF CARE (10/25/2022 7:46 AM CDT) Pathologist [facility] Glucose WB/POC 123(H) 70 - 115 mg/dL 10/25/2022 7:47 AM CDT [facility] Specimen Type Cap Fingerstick 2022 7:47 AM CDT [facility] Blood BLOOD SPECIMEN / Unknown 10/25/2022 7:46 AM CDT 10/25/2022 7:47 AM CDT Emir Vail MD LAB - POINT OF CARE ORDERABLES Performing Organization Address [facility]/ZIP Co de Phone Number [address] [address], [place] [phone] * HEPATITIS C AB SCREEN RFLX NAAT QUANT (10/25/2022 1:39 AM CDT) [facility] Hepatitis C Antibody Non-react tiffany Non-reac tive 10/25/2022 2:56 AM CDT [facility] Comment:Hepatitis C Antibody screen indicates [...] - CHEMISTRY BIBIANA BLACKMAN Performing Organization Address City/[facility]/ZIP Co de Phone Number [address] [address], [place] [phone] * HIV-1 HIV-2 ANTIBODY + HIV P24 AG PANEL (10/25/2022 1:39 AM CDT) HIV Antigen/Antibod y 1 & 2 Non-reacti ve Non-react tiffany 10/25/2022 2:56 AM [facility] Comment:No Laboratory eviden ce of HIV infection. Blood BLOOD SPECIMEN / Unknown Venipuncture / Unknown 10/25/2022 1:39 AM CDT 10/25/2022 1:56 AM CDT Emir Vail MD LAB - CHEMISTRY ANKURE HIRAL [facility] Organization Address City/State/ZIP Co de Phone Number [facility] [address] [place] [address], [facility] [phone] * (ABNORMAL) BASIC METABOLIC PANEL (CALCIUM TOTAL) (10/25/2022 12:07 AM CDT) BUN 16 7 - 26 mg/dL 10/25/2022 12:48 AM [facility] Creatinine 0.48(L) 0.56 - 0.96 mg/dL 10/25/2022 12:48 AM [facility] Sodium 140 136 - 145 mmol/L 10/25/2022 12:48 AM [facility] Potassium 4.0 3.5 - 4.5 mmol/L 10/25/2022 12:48 AM [facility] Chloride 106 98 - 107 mmol/L 10/25/2022 12:48 AM [facility] CO2 25 22 - 29 mmol/L 10/25/2022 12:48 AM [facility] Glucose 116(H) 70 - 115 mg/dL 10/25/2022 12:48 AM [facility] Calcium 9.0 8.4 - 10.2 mg/dL 10/25/2022 12:48 AM [facility] Anion Gap 13 8 - 18 10/25/2022 12:48 AM [facility] BUN/Creatinine Ratio 33(H) 7 - 23 10/25/2022 12:48 AM [facility] Osmolality Calculated 292 270 - 300 mOsm/kg 10/25/2022 12:48 AM [facility] eGFR by CKD-EPI >90 >=90 mL/min/1.7 3 m2 10/25/2022 12:48 AM [facility] Blood BLOOD SPECIMEN / Unknown Venipuncture / Unknown 10/25/2022 12:07 AM CDT 10/25/2022 12:12 AM CDT Emir Vail MD LAB - CHEMISTRY BIBIANA BLACKMAN [facility] Organization Address City/State/ZIP Co de Phone Number [facility] [address] [place] [address], [facility] [phone] * (ABNORMAL) CBC W AUTO DIFFERENTIAL (10/25/2022 12:07 AM T) WBC 16.6(H) 3.5 - 10.5 10? 3 /uL 10/25/2022 12:27 AM [facility] RBC 2.65(L) 3.80 - 5.20 10? 6 /uL 10/25/2022 12:27 AM [facility] Hemoglobin 8.2(L) 12.0 - 15.6 g/dL 10/25/2022 12:27 AM [facility] Hematocrit 25.1(L) 35.0 - 45.0 % 10/25/2022 12:27 AM [facility] MCV 94.7 80.7 - 98.3 fL 10/25/2022 12:27 AM [facility] MCH 30.9 26.7 - 34.0 pg 10/25/2022 12:27 AM [facility] MCHC 32.7 30.8 - 35.9 g/dL 10/25/2022 12:27 AM [facility] RDW-SD 45.8 36.0 - 50.0 fL 10/25/2022 12:27 AM [facility] RDW-CV 13.4 11.2 - 14.8 % 10/25/2022 12:27 AM [facility] Platelet Count 402(H) 150 - 400 10? 3 /uL 10/25/2022 12:27 AM [facility] MPV 10.2 9.4 - 12.9 fL 10/25/2022 12:27 AM [facility] nRBC Absolute 0.03(H) 0 10? 3 /uL 10/25/2022 12:27 AM [facility] nRBC Auto 0.2(H) 0 /100 WBC 10/25/2022 12:27 AM [facility] Neutrophils % 72.0(H) 35.0 - 70.0 % 10/25/2022 12:27 AM [facility] Lymphocytes % 15.7(L) 20.0 - 43.0 % 10/25/2022 12:27 AM [facility] Monocytes % 8.7 5.0 - 13.0 % 10/25/2022 12:27 AM [facility] Eosinophils % 2.1 0.0 - 6.0 % 10/25/2022 12:27 AM [facility] Basophil % 0.4 0.0 - 2.0 % 10/25/2022 12:27 AM [facility] Neutrophils Absolute 11.95(H) 1.60 - 7.00 10? 3 /uL 10/25/2022 12:27 AM [facility] Lymphocyte Absolute 2.60 1.10 - 3.90 10? 3 /uL 10/25/2022 12:27 AM [facility] Monocytes Absolute 1.45(H) 0.26 - 1.07 10? 3 /uL 10/25/2022 12:27 AM [facility] Eosinophils Absolute 0.34 0.00 - 0.47 10? 3 /uL 10/25/2022 12:27 AM [facility] Basophils Absolute 0.06 0.00 - 0.08 10? 3 /uL 10/25/2022 12:27 AM [facility] Immature Granulocytes % 1.1(H) 0.0 - 1.0 % 10/25/2022 12:27 AM [facility] Immature Granulocytes Absolute 0.18 10/25/2022 12:27 AM [facility] Blood BLOOD SPECIMEN / Unknown Venipuncture / Unknown 10/25/2022 12:07 AM T 10/25/2022 12:12 AM CDT Emir Vail MD LAB - HEMATOLOGY [place]KUR [place]CHRAN [address] [address], [place] [phone] * PHOSPHORUS BLOOD (10/25/2022 12:07 AM CDT) Phosphorus 3.7 2.9 - 5.1 mg/dL 10/25/2022 12:48 AM CDT [facility] Blood BLOOD SPECIMEN / Unknown Venipuncture / Unknown 10/25/2022 12:07 AM CDT 10/25/2022 12:12 AM CDT Emir Vail MD LAB - CHEMISTRY BIBIANA BLACKMAN [address] [address], [place] [phone] * MAGNESIUM BLOOD (10/25/2022 12:07 AM CDT) Magnesium 2.1 1.6 - 2.6 mg/dL 10/25/2022 12:48 AM CDT [facility] Blood BLOOD SPECIMEN / Unknown Venipuncture / Unknown 10/25/2022 12:07 AM CDT 10/25/2022 12:12 AM CDT Emir Vail MD LAB - CHEMISTRY BIBINAA BLACKMAN [address] [address], [place] [phone] * GLUCOSE - POINT OF CARE (10/24/2022 8:16 PM CDT) Glucose WB/POC 111 70 - 115 mg/dL 10/24/2022 8:25 PM CDT [facility] Specimen Type Cap Fingerstick 2022 8:25 PM CDT [facility] Blood BLOOD SPECIMEN / Unknown 10/24/2022 8:16 PM CDT 10/24/2022 8:25 PM CDT Emir Vail MD LAB - POINT OF CARE ORDERABLES [address] [address], [place] [phone] * GLUCOSE - POINT OF CARE (10/24/2022 5:10 PM CDT) Glucose WB/POC 112 70 - 115 mg/dL 10/24/2022 5:11 PM CDT [facility] Specimen Type Cap Fingerstick 2022 5:11 PM CDT [facility] Blood BLOOD SPECIMEN / Unknown 10/24/2022 5:10 PM CDT 10/24/2022 5:11 PM CDT Emir Vail MD LAB - POINT OF CARE ORDERABLES Performing Organization Address City/[facility]/ZIP Co de Phone Number [address] [address], [place] [phone] * XR ABDOMEN KUB PORTABLE (10/24/2022 2:04 PM CDT) Anatomical Region Laterality Modality Abdomen Radiographic Irene ging 10/24/2022 2:13 PM CDT Narrative 10/24/2022 2:17 PM CDT PROCEDURE: ??XR ABDOMEN KUB PORTABLE, DATE/TIME OF EXAM: ??10/24/2022 2:04 PM, LOCATION ??[facility] INDICATION: R47.1: Dysarthria ADDITIONAL CLINICAL INFORMATION: Ordering Provider Reason For Exam: ??ngt placement COMPARISON: Portable KUB dated 10/23/2022 FINDINGS/IMPRESSION: The enteric tube courses below the diaphragm with tip superimposing the gastric pyloric region. Drafted by Agnes Olmos DO (president mortgage company). I, Vanessa Kumar MD have personally reviewed and interpreted this examination/study. > Interpreting Provider: Vanessa Kumar MD on 10/24/2022 2:17 PM Procedure Note Vanessa Kumar MD - 10/24/2022 PROCEDURE: XR ABDOMEN KUB PORTABLE, DATE/TIME OF EXAM: 10/24/2022 2:04PM, LOCATION [facility] INDICATION: R47.1: Dysarthria ADDITIONAL CLINICAL INFORMATION: Ordering Provider Reason For Exam: ngt placement COMPARISON: Portable KUB dated 10/23/2022 FINDINGS/IMPRESSION: The enteric tube courses below the diaphragm with tip superimposing the gastric pyloric region. Drafted by Agnes Olmos DO (president mortgage company). I, Vanessa Kumar MD have personally reviewed and interpreted this examination/study. > Interpreting Provider: Vanessa Kumar MD on 32:17 PM Emir Vail MD DIAGNOSTIC IMAGING O RDERABLES * CULTURE BLOOD (10/24/2022 1:13 PM CDT) Culture No growth day 5 ROSELIA 10/29/2022 4:32 PM CDT [facility] Blood PERIPHERAL BLOOD / Unknown Venipuncture / Unknown 10/24/2022 1:13 PM CDT 10/24/2022 1:28 PM CDT Emir Vail MD LAB - MICROBIOLOGY O RDERABLES [facility] [address] [place] [address], [facility] [phone] * (ABNORMAL) GLUCOSE - POINT OF CARE (10/24/2022 12:37 PM CDT) Glucose WB/POC 130(H) 70 - 115 mg/dL 10/24/2022 5:34 PM CDT [facility] Specimen Type Cap Fingerstick 2022 5:34 PM CDT [facility] Blood BLOOD SPECIMEN / Unknown 10/24/2022 12:37 PM CDT 10/24/2022 5:34 PM CDT Emir Vail MD LAB - POINT OF CARE ORDERABLES [facility] [address] [place] [address], [facility] [phone] * MRI BRAIN WWO CONTRAST (10/24/2022 10:56 [...] right lateral ventricle, and approximately 3-4 mm hngth-qa-dzhw midline shift, grossly similar to the prior. [...] verification. Report dictated by Tim Major MD (president mortgage company). IJasper MD have personally reviewed and interpreted this examination/study. > Interpreting Provider: Jasper Sifuentes MD on 10/24/2022 1:59 PM Narrative 10/24/2022 1:59 PM CDT PROCEDURE: ??MRI BRAIN WWO CONTRAST, DATE/TIME OF EXAM: ??10/24/2022 10:56 AM, LOCATION ??[facility] INDICATION: I63.411: Acute cerebrovascular accident (CVA) due [...] right lateral ventricle, and approximately 3-4 mm vpmhz-xn-wlkq midline shift at the level of the [...] CONTRAST, DATE/TIME OF EXAM: 10/24/2022 10:56AM, LOCATION [facility] INDICATION: I63.411: Acute cerebrovascular accident (CVA) due [...] the right lateral ventricle, and approximately 3-4mm njwvb-jw-flms midline shift at the level of the [...] right lateral ventricle, and approximately 3-4 mm opbjw-vs-kpkd midline shift, grossly similar to the prior. [...] verification. Report dictated by Tim Major MD (president mortgage company). I, Jasper Sifuentes MD have personally reviewed and interpretedthis examination/study. > Interpreting Provider: Jasper Sifuentes MD on 10/24/2022 1:59 PM Emir Vail MD MR ORDERABLES * (ABNORMAL) GLUCOSE - POINT OF CARE (10/24/2022 9:15 AM CDT) Pathologist [facility] Glucose WB/POC 130(H) 70 - 115 mg/dL 10/24/2022 9:16 AM CDT [facility] Specimen Type Cap Fingerstick 2022 9:16 AM CDT [facility] Blood BLOOD SPECIMEN / Unknown 10/24/2022 9:15 AM CDT 10/24/2022 9:16 AM CDT Emir Vail MD LAB - POINT OF CARE ORDERABLES [facility] [address] [place] [address], [facility] [phone] * LAB MISC TEST (10/23/2022 8:29 PM CDT) Pathologist [facility] Test Name Phosphatidylserine Antibodies, IgG and IgM 10/27/2022 12:00 PM CDT [facility] Test Result See Scanned Report 10/27 12:00 PM CDT [facility] Comment Ref Lab [facility] 10/27/2022 12:00 PM CDT [facility] Blood BLOOD SPECIMEN / Unknown Venipuncture / Unknown 10/23/2022 8:29 PM CDT 10/23/2022 8:54 PM CDT Emir Vail MD LAB SEND OUT [facility] [place] [address] * (ABNORMAL) LUPUS ANTICOAGULANT PANEL (10/23/2022 8:29 PM CDT) APTT 21.4(L) 23.0 - 38.4 Seconds 10/24/2022 10:58 AM [facility] PT 13.4 12.1 - 14.8 Seconds 10/24/2022 10:58 AM [facility] INR 1.0 See Comment 10/24/2022 10:58 AM [facility] Buffer 30.2 Seconds 023 10:58 AM [facility] [place] Phospholipid 26.9 Seconds 10/24/2022 10:58 AM [facility] [place] Delta 3.3 <8.0 Seconds 10/24/2022 10:58 AM [facility] Interpretation [place] Negative 10/24/2022 10:58 AM [facility] Comment:Up to 15-20% of douglas ents [...] MD LAB - HEMATOLOGY ORD ERABLES [facility] [address] [place] [address], [facility] [phone] * CARDIOLIPIN ANTIBODY IGM (10/23/2022 8:29 PM CDT) Cardiolipin Antibody IgM <10 <=12 MPL 10/26/2022 1:32 AM CDT [facility] ([facility]) Comment: INTERPRETIVE INFORMATION: Anti-Cardiolipin IgM <=12 [...] other criteria phospholipid antibody tests. Performed By: [facility] [address] [place] [address] Transportation Security Screener: Boo Bond MD, PhD CLIA Number: [id number] Blood BLOOD SPECIMEN / Unknown Venipuncture / Unknown 10/23/2022 8:29 PM CDT 10/23/2022 9:18 PM CDT Emir Vail MD LAB - SEROLOGY ORDER [facility]) [address] [place] [address], [facility] * CARDIOLIPIN ANTIBODY IGG (10/23/2022 8:29 PM CDT) Cardiolipin Antibody IgG <10 <=14 GPL 10/26/2022 1:32 AM CDT [facility] ([facility]) Comment: INTERPRETIVE INFORMATION: Anti-Cardiolipin IgG Ab [...] other criteria phospholipid antibody tests. Performed By: [facility] [address] [place] [address] Transportation Security Screener: Boo Bond MD, PhD CLIA Number: [id number] Blood BLOOD SPECIMEN / Unknown Venipuncture / Unknown 10/23/2022 8:29 PM CDT 10/23/2022 9:19 PM CDT Emir Vail MD LAB - SEROLOGY ORDER [facility]ISSA [facility]) [address] [place] [address], [facility] * CARDIOLIPIN ANTIBODY IGA (10/23/2022 8:29 PM CDT) Cardiolipin Antibody IgA <10 <=11 APL 10/26/2022 9:11 AM CDT [facility] [employer] ([facility]) Comment: INTERPRETIVE INFORMATION: Cardiolipin Antibodies, IgA <=11 APL: Negative 12-19 APL: Indeterminate 20-80 APL: Low to Moderately ??Positive 81 APL or above: High Positive Performed By: [facility] [address] [place] [address] Transportation Security Screener: Boo Bond MD, PhD CLIA Number: [id number] Blood BLOOD SPECIMEN / Unknown Venipuncture / Unknown 10/23/2022 8:29 PM CDT 10/23/2022 9:19 PM CDT Emir Vail MD LAB - SEROLOGY ORDER NISSA [facility] [employer] ([facility]) [address] [id number], [facility] * BETA-2 GLYCOPROTEIN 1 ANTIBODY IGG/IGM PANEL (10/23/2022 8:29 PM CDT) Beta-2 Glycoprotein Antibody IgG <10 <=20 SGU 10/26/2022 1:43 AM CDT [facility] [employer] ([facility]) Beta-2 Glycoprotein Antibody IgM <10 <=20 SMU 10/26/2022 1:43 AM CDT [facility] [employer] ([facility]) Comment: INTERPRETIVE INFORMATION: [id number] I, IgG and IgM Antibody The persistent [...] other criteria phospholipid antibody tests. Performed By: [facility] [address] [id number] Transportation Security Screener: Boo Bond MD, PhD CLIA Number: [id number] Blood BLOOD SPECIMEN / Unknown Venipuncture / Unknown 10/23/2022 8:29 PM CDT 10/23/2022 9:19 PM CDT Emir Vail MD LAB - CHEMISTRY ORDE RABKAREN [facility] [employer] ([facility]) [address] * BETA-2 GLYCOPROTEIN 1 ANTIBODY IGA (10/23/2022 8:29 PM CDT) [facility] Beta-2 Glycoprotein Antibody IgA <10 <=20 TRUDI 10/26/2022 1:43 AM CDT [facility]) Comment: Performed By: [facility] [address] [place] [address] Transportation Security Screener: Boo Bond MD, PhD CLIA Number: [id number] Blood BLOOD SPECIMEN / Unknown Venipuncture / Unknown 10/23/2022 8:29 PM CDT 10/23/2022 9:18 PM CDT Emir Vail MD LAB - SEROLOGY ORDER NISSA [facility]) [address] * (ABNORMAL) BASIC METABOLIC PANEL (CALCIUM TOTAL) (10/23/2022 8:29 PM CDT) [facility] BUN 14 7 - 26 mg/dL 10/23/2022 9:14 PM CDT [facility] Creatinine 0.56 0.56 - 0.96 mg/dL 10/23/2022 9:14 PM CDT [facility] Sodium 140 136 - 145 mmol/L 10/23/2022 9:14 PM T [facility] Potassium 4.1 3.5 - 4.5 mmol/L 10/23/2022 9:14 PM CDT [facility] Chloride 110(H) 98 - 107 mmol/L 10/23/2022 9:14 PM T [facility] CO2 23 22 - 29 mmol/L 10/23/2022 9:14 PM CDT [facility] Glucose 119(H) 70 - 115 mg/dL 10/23/2022 9:14 PM T [facility] Calcium 8.5 8.4 - 10.2 mg/dL 10/23/2022 9:14 PM [facility] Anion Gap 11 8 - 18 10/23/2022 9:14 PM [facility] BUN/Creatinine Ratio 25(H) 7 - 23 10/23/2022 9:14 PM [facility] Osmolality Calculated 292 270 - 300 mOsm/kg 10/23/2022 9:14 PM [facility] eGFR by CKD-EPI >90 >=90 mL/min/1.7 3 m2 10/23/2022 9:14 PM [facility] Blood BLOOD SPECIMEN / Unknown Venipuncture / Unknown 10/23/2022 8:29 PM CDT 10/23/2022 8:48 PM CDT Emir Vail MD LAB - CHEMISTRY ORDE HIRAL [facility] Organization Address City/State/ZIP Co de Phone Number [facility] [address] [place] [address], [facility] [phone] * (ABNORMAL) CBC W AUTO DIFFERENTIAL (10/23/2022 8:29 PM CDT) WBC 17.4(H) 3.5 - 10.5 10? 3 /uL 10/23/2022 9:10 PM [facility] RBC 2.58(L) 3.80 - 5.20 10? 6 /uL 10/23/2022 9:10 PM [facility] Hemoglobin 8.0(L) 12.0 - 15.6 g/dL 10/23/2022 9:10 PM [facility] Hematocrit 24.4(L) 35.0 - 45.0 % 10/23/2022 9:10 PM [facility] MCV 94.6 80.7 - 98.3 fL 10/23/2022 9:10 PM [facility] MCH 31.0 26.7 - 34.0 pg 10/23/2022 9:10 PM [facility] MCHC 32.8 30.8 - 35.9 g/dL 10/23/2022 9:10 PM [facility] RDW-SD 46.7 36.0 - 50.0 fL 10/23/2022 9:10 PM [facility] RDW-CV 13.6 11.2 - 14.8 % 10/23/2022 9:10 PM [facility] Platelet Count 310 150 - 400 10? 3 /uL 10/23/2022 9:10 PM [facility] MPV 10.4 9.4 - 12.9 fL 10/23/2022 9:10 PM [facility] nRBC Absolute 0.03(H) 0 10? 3 /uL 10/23/2022 9:10 PM [facility] nRBC Auto 0.2(H) 0 /100 WBC 10/23/2022 9:10 PM [facility] Neutrophils % 69.8 35.0 - 70.0 % 10/23/2022 9:10 PM [facility] Lymphocytes % 19.2(L) 20.0 - 43.0 % 10/23/2022 9:10 PM [facility] Monocytes % 8.8 5.0 - 13.0 % 10/23/2022 9:10 PM [facility] Eosinophils % 1.1 0.0 - 6.0 % 10/23/2022 9:10 PM [facility] Basophil % 0.2 0.0 - 2.0 % 10/23/2022 9:10 PM [facility] Neutrophils Absolute 12.14(H) 1.60 - 7.00 10? 3 /uL 10/23/2022 9:10 PM [facility] Lymphocyte Absolute 3.33 1.10 - 3.90 10? 3 /uL 10/23/2022 9:10 PM [facility] Monocytes Absolute 1.52(H) 0.26 - 1.07 10? 3 /uL 10/23/2022 9:10 PM [facility] Eosinophils Absolute 0.19 0.00 - 0.47 10? 3 /uL 10/23/2022 9:10 PM [facility] Basophils Absolute 0.04 0.00 - 0.08 10? 3 /uL 10/23/2022 9:10 PM [facility] Immature Granulocytes % 0.9 0.0 - 1.0 % 10/23/2022 9:10 PM [facility] Immature Granulocytes Absolute 0.15 10/23/2022 9:10 PM CDT [facility] Blood BLOOD SPECIMEN / Unknown Venipuncture / Unknown 10/23/2022 8:29 PM CDT 10/23/2022 8:58 PM CDT Emir Vail MD LAB - HEMATOLOGY ORD ERAJESSE [address] [address], [place] [phone] * PHOSPHORUS BLOOD (10/23/2022 8:29 PM CDT) Phosphorus 3.1 2.9 - 5.1 mg/dL 10/23/2022 9:14 PM CDT [facility] Blood BLOOD SPECIMEN / Unknown Venipuncture / Unknown 10/23/2022 8:29 PM CDT 10/23/2022 8:48 PM CDT Emir Vail MD LAB - CHEMISTRY ORDDanyelle BLACKMAN Performing Organization Address City/[facility]/ZIP Co de Phone Number [address] [address], [place] [phone] * MAGNESIUM BLOOD (10/23/2022 8:29 PM CDT) Magnesium 2.1 1.6 - 2.6 mg/dL 10/23/2022 9:14 PM CDT [facility] Blood BLOOD SPECIMEN / Unknown Venipuncture / Unknown 10/23/2022 8:29 PM CDT 10/23/2022 8:48 PM CDT Emir Vail MD LAB - CHEMISTRY ORDDanyelle BLACKMAN [address] [address], [place] [phone] * GLUCOSE - POINT OF CARE (10/23/2022 5:57 PM CDT) Glucose WB/POC 105 70 - 115 mg/dL 10/23/2022 5:58 PM CDT [facility] Specimen Type Cap Fingerstick 2022 5:58 PM CDT [facility] Blood BLOOD SPECIMEN / Unknown 10/23/2022 5:57 PM CDT 10/23/2022 5:58 PM CDT Emir Vail MD LAB - POINT OF CARE ORDERABLES [address] [address], [place] [phone] * (ABNORMAL) C-REACTIVE PROTEIN (10/23/2022 3:47 PM CDT) C-Reactive Protein 12.1(H) <=0.5 mg/dL 10/23/2022 4:19 PM CDT [facility] Blood BLOOD SPECIMEN / Unknown Line Draw / Unknown 10/23/2022 3:47 PM CDT 10/23/2022 3:55 PM CDT Emir Vail MD LAB - CHEMISTRY ORDE RABLES Performing Organization Address City/[facility]/ZIP Co de Phone Number [address] [address], [place] [phone] * (ABNORMAL) ERYTHROCYTE SEDIMENTATION RATE (10/23/2022 3:47 PM CDT) Erythrocyte Sedimentation Rate Westergren 55(H) 0 - 20 MM/HR 10/23/2022 4:25 PM CDT [facility] Blood BLOOD SPECIMEN / Unknown Line Draw / Unknown 10/23/2022 3:47 PM CDT 10/23/2022 3:59 PM CDT Emir Vail MD LAB - HEMATOLOGY ORD ERABLES [address] [address], [place] [phone] * CT CARDIAC ANGIO STRUCT MORPH (10/23/2022 [...] DATE/TIME OF EXAM: ??10/23/2022 3:08 PM, LOCATION ??[facility] INDICATION: I63.411: Acute cerebrovascular accident (CVA) due [...] DATE/TIME OF EXAM: 10/23/2022 3:08 PM, LOCATION [facility] INDICATION: I63.411: Acute cerebrovascular accident (CVA) due [...] DATE/TIME OF EXAM: ??10/23/2022 1:53 PM, LOCATION ??[facility] INDICATION: R47.1: Dysarthria ADDITIONAL CLINICAL INFORMATION: Ordering Provider Reason For Exam: ??NGT placement COMPARISON: Portable KUB dated 10/20/2022 FINDINGS/IMPRESSION: The enteric tube courses below the diaphragm with tip superimposing the stomach. Drafted by Agnes Olmos DO (president mortgage company). Vanessa Ornelas MD have personally reviewed and interpreted this examination/study. > Interpreting Provider: Vanessa Kumar MD on 10/24/2022 8:31 AM Procedure Note Vanessa Kumar MD - 10/24/2022 PROCEDURE: XR ABDOMEN KUB PORTABLE, DATE/TIME OF EXAM: 10/23/2022 1:53PM, LOCATION [facility] INDICATION: R47.1: Dysarthria ADDITIONAL CLINICAL INFORMATION: Ordering Provider Reason For Exam: NGT placement COMPARISON: Portable KUB dated 10/20/2022 FINDINGS/IMPRESSION: The enteric tube courses below the diaphragm with tip superimposing the stomach. Drafted by Agnes Olmos DO (president mortgage company). Vanessa Ornelas MD have personally reviewed and interpreted this examination/study. > Interpreting Provider: Vanessa Kumar MD on 38:31 AM Emir Vail MD DIAGNOSTIC IMAGING O RDERABLES * MRSA DNA PCR (10/23/2022 12:34 PM CDT) MRSA DNA by PCR Not detected Not detected 10/23/2022 8:44 PM CDT [facility] MICROBI[facility] Microbiology SPECIMEN FROM NASAL FOSSAE / Unknown Collection / Unknown 10/23/2022 12:34 PM CDT 10/23/2022 12:50 PM CDT Narrative [facility] - 10/23/2022 8:44 PM CDT Methicillin-resistant Staphylococcus aureus (MRSA) DNA is not detected (presumed not colonized with MRSA). Emir Vail MD LAB - MICROBIOLOGY O DIONI Performing Organization Address City/[facility]/ZIP Co de Phone Number [facility] [address] [place] [address], [facility] [phone] * CULTURE BLOOD (10/23/2022 12:16 PM CDT) Culture No growth day 5 ROSELIA 10/28/2022 5:02 PM CDT [facility] Blood PERIPHERAL BLOOD / Unknown Venipuncture / Unknown 10/23/2022 12:16 PM CDT 10/23/2022 12:28 PM CDT Emir Vail MD LAB - MICROBIOLOGY O DIONI Performing Organization Address City/[facility]/ZIP Co de Phone Number [facility] [address] [place] [address], [facility] [phone] * CULTURE BLOOD (10/23/2022 12:05 PM CDT) Culture No growth day 5 ROSELIA 10/28/2022 5:02 PM CDT [facility] Blood PERIPHERAL BLOOD / Unknown Venipuncture / Unknown 10/23/2022 12:05 PM CDT 10/23/2022 12:28 PM CDT Emir Vail MD LAB - MICROBIOLOGY O DIONI Performing Organization Address City/[facility]/ZIP Co de Phone Number [facility] [address] [place] [address], [facility] [phone] * GLUCOSE - POINT OF CARE (10/23/2022 11:24 AM CDT) Glucose WB/POC 113 70 - 115 mg/dL 10/23/2022 11:25 AM CDT [facility] Specimen Type Cap Fingerstick 2022 11:25 AM CDT [facility] Blood BLOOD SPECIMEN / Unknown 10/23/2022 11:24 AM CDT 10/23/2022 11:25 AM CDT Emir Vail MD LAB - POINT OF CARE ORDERABLES [facility] [address] [place] [address], [facility] [phone] * ECHO SARAH COMPLETE (10/23/2022 9:07 AM [...] contrast. The probe was inserted by the fishing tool supervisor. There was moderate probe insertion difficulty. Moderate sedation was given. Sedation was managed by the fishing tool supervisor. Lidocaine administered during the study. 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 Endotracheal tube terminates in the midthoracic trachea. There is no focal consolidation. No pleural effusion or pneumothorax. The cardiomediastinal silhouette is normal. No acute osseous abnormality. Report dictated by Agnes Olmos DO (president mortgage company). Vanessa Ornelas MD have personally reviewed and interpreted this examination/study. 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 Endotracheal tube terminates in the midthoracic trachea. There is no focal consolidation. No pleural effusion or pneumothorax.The cardiomediastinal silhouette is normal. No acute osseous abnormality. Report dictated by Agnes Olmos DO (president mortgage company). Vanessa Ornelas MD have personally reviewed and [...] report is dictated by Miranda Bowen MD (president mortgage company) Jasper Ornelas MD have personally reviewed and interpreted this examination/study. > Interpreting Provider: Jasper Sifuentes MD on 10/23/2022 9:16 AM Narrative 10/23/2022 9:16 AM CDT PROCEDURE: ??CT HEAD WO CONTRAST, DATE/TIME OF EXAM: ??10/23/2022 5:53 AM, LOCATION ??[facility] INDICATION: I63.511: Right middle cerebral artery stroke [...] DATE/TIME OF EXAM: 10/23/2022 5:53 AM, LOCATION [facility] INDICATION: I63.511: Right middle cerebral artery stroke [...] report is dictated by Miranda Bowen MD (president mortgage company) I, Jasper Sifuentes MD have personally reviewed and interpretedthis examination/study. > Interpreting Provider: Jasper Sifuentes MD on 10/23/2022 9:16 AM Emir Vail MD CT ORDERABLES * (ABNORMAL) BASIC METABOLIC PANEL (CALCIUM TOTAL) (10/23/2022 1:29 AM CDT) BUN 13 7 - 26 mg/dL 10/23/2022 2:09 AM [facility] Creatinine 0.51(L) 0.56 - 0.96 mg/dL 10/23/2022 2:09 AM [facility] Sodium 140 136 - 145 mmol/L 10/23/2022 2:09 AM [facility] Potassium 3.4(L) 3.5 - 4.5 mmol/L 10/23/2022 2:09 AM [facility] Chloride 108(H) 98 - 107 mmol/L 10/23/2022 2:09 AM [facility] CO2 25 22 - 29 mmol/L 10/23/2022 2:09 AM [facility] Glucose 132(H) 70 - 115 mg/dL 10/23/2022 2:09 AM [facility] Calcium 8.3(L) 8.4 - 10.2 mg/dL 10/23/2022 2:09 AM [facility] Anion Gap 10 8 - 18 10/23/2022 2:09 AM [facility] BUN/Creatinine Ratio 25(H) 7 - 23 10/23/2022 2:09 AM [facility] Osmolality Calculated 292 270 - 300 mOsm/kg 10/23/2022 2:09 AM [facility] eGFR by CKD-EPI >90 >=90 mL/min/1.7 3 m2 10/23/2022 2:09 AM [facility] Blood BLOOD SPECIMEN / Unknown Venipuncture / Unknown 10/23/2022 1:29 AM CDT 10/23/2022 1:40 AM T Emir Vail MD LAB - CHEMISTRY BIBIANA BLACKMAN [facility] Organization Address City/State/ZIP Co de Phone Number [facility] [address] [place] [address], [facility] [phone] * (ABNORMAL) CBC W AUTO DIFFERENTIAL (10/23/2022 1:29 AM CDT) WBC 16.7(H) 3.5 - 10.5 10? 3 /uL 10/23/2022 1:43 AM [facility] RBC 2.52(L) 3.80 - 5.20 10? 6 /uL 10/23/2022 1:43 AM [facility] Hemoglobin 7.8(L) 12.0 - 15.6 g/dL 10/23/2022 1:43 AM [facility] Hematocrit 23.8(L) 35.0 - 45.0 % 10/23/2022 1:43 AM [facility] MCV 94.4 80.7 - 98.3 fL 10/23/2022 1:43 AM [facility] MCH 31.0 26.7 - 34.0 pg 10/23/2022 1:43 AM [facility] MCHC 32.8 30.8 - 35.9 g/dL 10/23/2022 1:43 AM [facility] RDW-SD 46.7 36.0 - 50.0 fL 10/23/2022 1:43 AM [facility] RDW-CV 13.5 11.2 - 14.8 % 10/23/2022 1:43 AM [facility] Platelet Count 265 150 - 400 10? 3 /uL 10/23/2022 1:43 AM [facility] MPV 10.3 9.4 - 12.9 fL 10/23/2022 1:43 AM [facility] nRBC Absolute 0.00 0 10? 3 /uL 10/23/2022 1:43 AM [facility] nRBC Auto 0.0 0 /100 WBC 10/23/2022 1:43 AM [facility] Neutrophils % 70.7(H) 35.0 - 70.0 % 10/23/2022 1:43 AM [facility] Lymphocytes % 18.4(L) 20.0 - 43.0 % 10/23/2022 1:43 AM [facility] Monocytes % 9.2 5.0 - 13.0 % 10/23/2022 1:43 AM [facility] Eosinophils % 0.6 0.0 - 6.0 % 10/23/2022 1:43 AM [facility] Basophil % 0.3 0.0 - 2.0 % 10/23/2022 1:43 AM [facility] Neutrophils Absolute 11.79(H) 1.60 - 7.00 10? 3 /uL 10/23/2022 1:43 AM CDT [facility] Lymphocyte Absolute 3.07 1.10 - 3.90 10? 3 /uL 10/23/2022 1:43 AM CDT [facility] Monocytes Absolute 1.54(H) 0.26 - 1.07 10? 3 /uL 10/23/2022 1:43 AM T [facility] Eosinophils Absolute 0.10 0.00 - 0.47 10? 3 /uL 10/23/2022 1:43 AM CDT [facility] Basophils Absolute 0.05 0.00 - 0.08 10? 3 /uL 10/23/2022 1:43 AM [facility] Immature Granulocytes % 0.8 0.0 - 1.0 % 10/23/2022 1:43 AM T [facility] Immature Granulocytes Absolute 0.13 10/23/2022 1:43 AM T [facility] Blood BLOOD SPECIMEN / Unknown Venipuncture / Unknown 10/23/2022 1:29 AM CDT 10/23/2022 1:40 AM CDT Emir Vail MD LAB - HEMATOLOGY ORD ERABLES [address] [address], [facility] [phone] * PHOSPHORUS BLOOD (10/23/2022 1:29 AM CDT) Phosphorus 3.4 2.9 - 5.1 mg/dL 10/23/2022 2:09 AM CDT [facility] Blood BLOOD SPECIMEN / Unknown Venipuncture / Unknown 10/23/2022 1:29 AM CDT 10/23/2022 1:40 AM CDT Emir Vail MD LAB - CHEMISTRY ORDE HIRAL [address] [address], [place] [phone] * MAGNESIUM BLOOD (10/23/2022 1:29 AM CDT) Magnesium 2.0 1.6 - 2.6 mg/dL 10/23/2022 2:09 AM CDT [facility] Blood BLOOD SPECIMEN / Unknown Venipuncture / Unknown 10/23/2022 1:29 AM CDT 10/23/2022 1:40 AM CDT Emir Vail MD LAB - CHEMISTRY BIBIANA BLACKMAN [facility] [address] [place] [address], [place] [phone] * (ABNORMAL) GLUCOSE - POINT OF CARE (10/22/2022 11:00 PM CDT) Glucose WB/POC 124(H) 70 - 115 mg/dL 10/22/2022 11:05 PM CDT [facility] Specimen Type Cap Fingerstick 2022 11:05 PM CDT [facility] Blood BLOOD SPECIMEN / Unknown 10/22/2022 11:00 PM CDT 10/22/2022 11:05 PM CDT Emir Vail MD LAB - POINT OF CARE ORDERABLES Performing Organization Address City/[facility]/ZIP Co de Phone Number [facility] [address] [place] [address], [place] [phone] * (ABNORMAL) GLUCOSE - POINT OF CARE (10/22/2022 5:41 PM CDT) Glucose WB/POC 127(H) 70 - 115 mg/dL 10/22/2022 5:42 PM CDT [facility] Specimen Type Cap Fingerstick 2022 5:42 PM CDT [facility] Blood BLOOD SPECIMEN / Unknown 10/22/2022 5:41 PM CDT 10/22/2022 5:42 PM CDT Emir Vail MD LAB - POINT OF CARE ORDERABLES [facility] [address] [place] [address], [place] [phone] * GLUCOSE - POINT OF CARE (10/22/2022 2:57 PM CDT) Glucose WB/POC 98 70 - 115 mg/dL 10/22/2022 2:59 PM CDT [facility] Specimen Type Cap Fingerstick 2022 2:59 PM CDT [facility] Blood BLOOD SPECIMEN / Unknown 10/22/2022 2:57 PM CDT 10/22/2022 2:59 PM CDT Emir Vail MD LAB - POINT OF CARE ORDERABLES [facility] [address] [place] [address], [place] [phone] * CT HEAD WO CONTRAST (10/22/2022 2:32 [...] dictated by Lorenzo Horta MD (vice president regulatory). I, Lonnie Rae MD have personally reviewed [...] dictated by Lorenzo Horta MD (vice president regulatory). Lonnie Ornelas MD have personally reviewed and interpreted this examination/study. > Interpreting Provider: Lonnie Rae MD on 10/22/2022 3:10 PM Emir Vail MD CT ORDERABLES * GLUCOSE - POINT OF CARE (10/22/2022 8:58 AM CDT) Glucose WB/POC 109 70 - 115 mg/dL 10/22/2022 8:59 AM CDT [facility] Specimen Type Cap Fingerstick 2022 8:59 AM CDT [facility] Blood BLOOD SPECIMEN / Unknown 10/22/2022 8:58 AM CDT 10/22/2022 8:59 AM CDT Emir Vail MD LAB - POINT OF CARE ORDERABLES Performing Organization Address City/State/[facility] Co de Phone Number [facility] [address] [place] [address], [facility] [phone] * CT HEAD WO CONTRAST (10/22/2022 5:35 [...] DATE/TIME OF EXAM: ??10/22/2022 5:35 AM, LOCATION ??[facility] INDICATION: I63.511: Right middle cerebral artery stroke [...] DATE/TIME OF EXAM: 10/22/2022 5:35 AM, LOCATION [facility] INDICATION: I63.511: Right middle cerebral artery stroke [...] AUTO CITRATED BLOOD (10/22/2022 1:53 AM CDT) Pathologist [facility] Platelet Count Citrated Blood 199 150 - 400 10? 3 /uL 10/22/2022 2:21 AM CDT [facility] Blood BLOOD SPECIMEN / Unknown Venipuncture / Unknown 10/22/2022 1:53 AM CDT 10/22/2022 2:05 AM CDT Emir Vail MD LAB - HEMATOLOGY ORD ERABLES [address] [address], [facility] [phone] * (ABNORMAL) GLUCOSE - POINT OF CARE (10/21/2022 11:18 PM CDT) [facility] Glucose WB/POC 171(H) 70 - 115 mg/dL 10/21/2022 11:23 PM CDT [facility] Specimen Type Venous 10/21/2022 11:23 PM CDT [facility] Blood BLOOD SPECIMEN / Unknown 10/21/2022 11:18 PM CDT 10/21/2022 11:23 PM CDT Emir Vail MD LAB - POINT OF CARE ORDERABLES [address] [address], [place] [phone] * (ABNORMAL) BASIC METABOLIC PANEL (CALCIUM TOTAL) (10/21/2022 11:16 PM CDT) Pathologist [facility] BUN 16 7 - 26 mg/dL 10/21/2022 11:51 PM CDT [facility] Creatinine 0.65 0.56 - 0.96 mg/dL 10/21/2022 11:51 PM [facility] Sodium 142 136 - 145 mmol/L 10/21/2022 11:51 PM [facility] Potassium 3.7 3.5 - 4.5 mmol/L 10/21/2022 11:51 PM [facility] Chloride 111(H) 98 - 107 mmol/L 10/21/2022 11:51 PM [facility] CO2 20(L) 22 - 29 mmol/L 10/21/2022 11:51 PM [facility] Glucose 120(H) 70 - 115 mg/dL 10/21/2022 11:51 PM [facility] Calcium 8.0(L) 8.4 - 10.2 mg/dL 10/21/2022 11:51 PM [facility] Anion Gap 15 8 - 18 10/21/2022 11:51 PM [facility] BUN/Creatinine Ratio 25(H) 7 - 23 10/21/2022 11:51 PM [facility] Osmolality Calculated 296 270 - 300 mOsm/kg 10/21/2022 11:51 PM [facility] eGFR by CKD-EPI >90 >=90 mL/min/1.7 3 m2 10/21/2022 11:51 PM [facility] Blood BLOOD SPECIMEN / Unknown Venipuncture / Unknown 10/21/2022 11:16 PM CDT 10/21/2022 11:27 PM CDT Emir Vail MD LAB - CHEMISTRY [facility] Organization Address City/State/ZIP Co de Phone Number [address] [address], [facility] [phone] * (ABNORMAL) CBC W AUTO DIFFERENTIAL (10/21/2022 11:16 PM CDT) WBC 18.4(H) 3.5 - 10.5 10? 3 /uL 10/22/2022 12:26 AM [facility] RBC 2.62(L) 3.80 - 5.20 10? 6 /uL 10/22/2022 12:26 AM [facility] Hemoglobin 8.1(L) 12.0 - 15.6 g/dL 10/22/2022 12:26 AM [facility] Hematocrit 25.1(L) 35.0 - 45.0 % 10/22/2022 12:26 AM [facility] MCV 95.8 80.7 - 98.3 fL 10/22/2022 12:26 AM [facility] MCH 30.9 26.7 - 34.0 pg 10/22/2022 12:26 AM [facility] MCHC 32.3 30.8 - 35.9 g/dL 10/22/2022 12:26 AM [facility] RDW-SD 48.6 36.0 - 50.0 fL 10/22/2022 12:26 AM [facility] RDW-CV 14.0 11.2 - 14.8 % 10/22/2022 12:26 AM [facility] Platelet Count 10/22/2022 12:26 AM [facility] Comment: Platelets are clumped, appear as decreased on the slide. ??A blue top citrated tube is required for a platelet count. ?? Notified Shauna Martines RN ??at 1225 on 10/22/2022. MPV 10/22/2022 12:26 AM [facility] Comment:Unable to Report Immature Platelet Fraction 10/22/2022 12:26 AM [facility] Comment:Unable to Report nRBC Absolute 0.00 0 10? 3 /uL 10/22/2022 12:26 AM [facility] nRBC Auto 0.0 0 /100 WBC 10/22/2022 12:26 AM [facility] Neutrophils % 69.8 35.0 - 70.0 % 10/22/2022 12:26 AM [facility] Lymphocytes % 18.4(L) 20.0 - 43.0 % 10/22/2022 12:26 AM [facility] Monocytes % 10.9 5.0 - 13.0 % 10/22/2022 12:26 AM [facility] Eosinophils % 0.1 0.0 - 6.0 % 10/22/2022 12:26 AM [facility] Basophil % 0.1 0.0 - 2.0 % 10/22/2022 12:26 AM T [facility] Neutrophils Absolute 12.87(H) 1.60 - 7.00 10? 3 /uL 10/22/2022 12:26 AM CDT [facility] Lymphocyte Absolute 3.38 1.10 - 3.90 10? 3 /uL 10/22/2022 12:26 AM T [facility] Monocytes Absolute 2.00(H) 0.26 - 1.07 10? 3 /uL 10/22/2022 12:26 AM T [facility] Eosinophils Absolute 0.01 0.00 - 0.47 10? 3 /uL 10/22/2022 12:26 AM T [facility] Basophils Absolute 0.02 0.00 - 0.08 10? 3 /uL 10/22/2022 12:26 AM [facility] Immature Granulocytes % 0.7 0.0 - 1.0 % 10/22/2022 12:26 AM T [facility] Immature Granulocytes Absolute 0.13 10/22/2022 12:26 AM T [facility] Blood BLOOD SPECIMEN / Unknown Venipuncture / Unknown 10/21/2022 11:16 PM CDT 10/21/2022 11:27 PM CDT Emir Vail MD LAB - HEMATOLOGY ORD JINBLES [address] [address], [facility] [phone] * (ABNORMAL) PHOSPHORUS BLOOD (10/21/2022 11:16 PM CDT) Phosphorus 2.7(L) 2.9 - 5.1 mg/dL 10/21/2022 11:51 PM CDT [facility] Blood BLOOD SPECIMEN / Unknown Venipuncture / Unknown 10/21/2022 11:16 PM CDT 10/21/2022 11:27 PM CDT Emir Vail MD LAB - CHEMISTRY ORDDanyelle BLACKMAN [address] [place] [address], [place] [phone] * MAGNESIUM BLOOD (10/21/2022 11:16 PM CDT) Magnesium 2.2 1.6 - 2.6 mg/dL 10/21/2022 11:51 PM CDT [facility] Blood BLOOD SPECIMEN / Unknown Venipuncture / Unknown 10/21/2022 11:16 PM CDT 10/21/2022 11:27 PM CDT Emir Vail MD LAB - CHEMISTRY ORDE HIRAL [address] [address], [place] [phone] * (ABNORMAL) GLUCOSE - POINT OF CARE (10/21/2022 6:43 PM CDT) Glucose WB/POC 129(H) 70 - 115 mg/dL 10/21/2022 6:44 PM CDT [facility] Specimen Type Cap Fingerstick 2022 6:44 PM CDT [facility] Blood BLOOD SPECIMEN / Unknown 10/21/2022 6:43 PM CDT 10/21/2022 6:44 PM CDT Emir Vail MD LAB - POINT OF CARE ORDERABLES [facility] [address] [place] [address], [place] [phone] * (ABNORMAL) GLUCOSE - POINT OF CARE (10/21/2022 12:10 PM CDT) Glucose WB/POC 127(H) 70 - 115 mg/dL 10/21/2022 12:15 PM CDT [facility] Specimen Type Cap Fingerstick 2022 12:15 PM CDT [facility] Blood BLOOD SPECIMEN / Unknown 10/21/2022 12:10 PM CDT 10/21/2022 12:14 PM CDT Emir Vail MD LAB - POINT OF CARE ORDERABLES [facility] [address] [place] [address], [facility] [phone] * XR CHEST 1VW PORTABLE (10/21/2022 8:53 AM CDT) Anatomical Region Laterality Modality Chest Radiographic Irene ging 10/21/2022 2:30 PM CDT Narrative 10/21/2022 5:59 PM CDT PROCEDURE: ??XR CHEST 1VW PORTABLE, DATE/TIME OF EXAM: ??10/21/2022 8:53 AM, LOCATION ??[facility] INDICATION: R53.1: Weakness ADDITIONAL CLINICAL INFORMATION: Ordering [...] intact. Report dictated by Christopher Tobin MD, (president mortgage company). I, HEATHER FREGOSO MD have personally reviewed and interpreted this examination/study. > Interpreting Provider: HEATHER FREGOSO MD on 10/21/2022 5:59 PM Procedure Note Heather Fregoso MD - 10/21/2022 PROCEDURE: XR CHEST 1VW PORTABLE, DATE/TIME OF EXAM: 10/21/2022 8:53AM, LOCATION [facility] INDICATION: R53.1: Weakness ADDITIONAL CLINICAL INFORMATION: Ordering [...] Report dictated by Christopher Tobin MD, MD (president mortgage company). I, HEATHER FREGOSO MD have personally reviewed and interpreted this examination/study. > Interpreting Provider: HEATHER FREGOSO MD on 10/21/2022 5:59 PM Emir Vail MD DIAGNOSTIC IMAGING O RDERABLES * (ABNORMAL) BLOOD GASES ART + COOX PANEL (10/21/2022 8:01 AM [facility]) pH Arterial 7.40 7.35 - 7.45 pH 10/21/2022 8:09 AM [facility] pO2 Arterial 143(H) 80 - 100 mmHg 10/21/2022 8:09 AM [facility] pCO2 Arterial 31(L) 35 - 45 mmHg 8:09 AM [facility] HCO3 Arterial 19.2(L) 20.0 - 30.0 mmol/L 10/21/2022 8:09 AM [facility] BE Arterial -4.8(L) -2.0 - 2.0 mmol/L 10/21/2022 8:09 AM [facility] Oxyhemoglobin Arterial 97.2 % 10/21/2022 8:09 AM [facility] Dexoyhemoglobin (HHB) % <1.0 % 10/21/2022 8:09 AM [facility] Methemoglobin <0.8 0.0 - 2.0 % 10/21/2022 8:09 AM [facility] Carboxyhemoglobin 1.4 0.0 - 2.0 % 2022 8:09 AM [facility] O2 Content Arterial 13.6 Interpret within clinical context ml/dL 10/21/2022 8:09 AM [facility] Hemoglobin by COOX 9.7(L) 12.0 - 15.6 g/dL 10/21/2022 8:09 AM [facility] O2 Saturation Arterial 99 90 - 100 % 10/21/2022 8:09 AM [facility] FI O2 Arterial 30.0 % 10/21/2022 8:09 AM [facility] Blood, arterial ARTERIAL BLOOD SPECIMEN / Unknown Arterial Puncture / Unknown 10/21/2022 8:01 AM CDT 10/21/2022 8:05 AM CDT [facility] - 10/21/2022 8:09 AM CDT Carboxyhemoglobin Normal Concentration: Non-smokers: 0-2%; Smokers: 0-9%; Toxic: >20% Emir Vail MD LAB - BLOOD GASES OR DERABLES Performing Organization Address [facility]/State/[facility] Co de Phone Number [facility] [address] [place] [address] [phone] * (ABNORMAL) CBC W AUTO DIFFERENTIAL (10/21/2022 7:53 AM CDT) WBC 18.6(H) 3.5 - 10.5 10? 3 /uL 10/21/2022 8:11 AM [facility] RBC 3.01(L) 3.80 - 5.20 10? 6 /uL 10/21/2022 8:11 AM [facility] Hemoglobin 9.4(L) 12.0 - 15.6 g/dL 10/21/2022 8:11 AM [facility] Hematocrit 27.9(L) 35.0 - 45.0 % 10/21/2022 8:11 AM [facility] MCV 92.7 80.7 - 98.3 fL 10/21/2022 8:11 AM [facility] MCH 31.2 26.7 - 34.0 pg 10/21/2022 8:11 AM [facility] MCHC 33.7 30.8 - 35.9 g/dL 10/21/2022 8:11 AM [facility] RDW-SD 47.8 36.0 - 50.0 fL 10/21/2022 8:11 AM [facility] RDW-CV 14.1 11.2 - 14.8 % 10/21/2022 8:11 AM [facility] Platelet Count 259 150 - 400 10? 3 /uL 10/21/2022 8:11 AM [facility] MPV 10.5 9.4 - 12.9 fL 10/21/2022 8:11 AM [facility] nRBC Absolute 0.00 0 10? 3 /uL 10/21/2022 8:11 AM [facility] nRBC Auto 0.0 0 /100 WBC 10/21/2022 8:11 AM [facility] Neutrophils % 86.9(H) 35.0 - 70.0 % 10/21/2022 8:11 AM [facility] Lymphocytes % 7.3(L) 20.0 - 43.0 % 10/21/2022 8:11 AM [facility] Monocytes % 5.1 5.0 - 13.0 % 10/21/2022 8:11 AM [facility] Eosinophils % 0.0 0.0 - 6.0 % 10/21/2022 8:11 AM [facility] Basophil % 0.1 0.0 - 2.0 % 10/21/2022 8:11 AM [facility] Neutrophils Absolute 16.12(H) 1.60 - 7.00 10? 3 /uL 10/21/2022 8:11 AM [facility] Lymphocyte Absolute 1.36 1.10 - 3.90 10? 3 /uL 10/21/2022 8:11 AM [facility] Monocytes Absolute 0.94 0.26 - 1.07 10? 3 /uL 10/21/2022 8:11 AM [facility] Eosinophils Absolute 0.00 0.00 - 0.47 10? 3 /uL 10/21/2022 8:11 AM [facility] Basophils Absolute 0.02 0.00 - 0.08 10? 3 /uL 10/21/2022 8:11 AM [facility] Immature Granulocytes % 0.6 0.0 - 1.0 % 10/21/2022 8:11 AM [facility] Immature Granulocytes Absolute 0.12 10/21/2022 8:11 AM [facility] Blood BLOOD SPECIMEN / Unknown Line Draw / Unknown 10/21/2022 7:53 AM CDT 10/21/2022 8:06 AM T Emir Vail MD LAB - HEMATOLOGY ORD ERABLES [address] [address], [facility] [phone] * TROPONIN-I HIGH SENSITIVE REFLEX 1HOUR (10/21/2022 7:53 AM CDT) Troponin I High Sensitive <3 <=14 ng/L 10/21/2022 8:54 AM CDT [facility] Delta Troponin I HS 10/21/2022 8:54 AM CDT [facility] Comment:Delta value intentio princess not calculated. Baseline to 1 hour specimen collection interval exceeded. Blood BLOOD SPECIMEN / Unknown Line Draw / Unknown 10/21/2022 7:53 AM CDT 10/21/2022 8:06 AM CDT Jim Walter MD LAB - CHEMISTRY ANKUR COCHRAN Performing Organization Address [facility]/ZIP Co de Phone Number [address] [address], [facility] [phone] * (ABNORMAL) PHOSPHORUS BLOOD (10/21/2022 4:59 AM CDT) Phosphorus 2.2(L) 2.9 - 5.1 mg/dL 10/21/2022 5:46 AM CDT [facility] Blood BLOOD SPECIMEN / Unknown Venipuncture / Unknown 10/21/2022 4:59 AM CDT 10/21/2022 5:09 AM CDT Good Antunez MD LAB - CHEMISTRY BIBIANA BLACKMAN [address] [address], [facility] [phone] * MAGNESIUM BLOOD (10/21/2022 4:59 AM CDT) Magnesium 2.2 1.6 - 2.6 mg/dL 10/21/2022 5:47 AM CDT [facility] Comment:Hemolysis detected i n this specimen. Hemolysis is known to cause elevations in this analyte. Caution should be exercised in the interpretation of this result. Recommend repeat testing if clinically indicated. Blood BLOOD SPECIMEN / Unknown Venipuncture / Unknown 10/21/2022 4:59 AM CDT 10/21/2022 5:09 AM CDT Good Antunez MD LAB - CHEMISTRY BIBIANA BLACKMAN [facility] Organization Address City/State/ZIP Co de Phone Number [facility] [address] [place] [address], [facility] [phone] * (ABNORMAL) CBC W/O DIFFERENTIAL (10/21/2022 4:59 AM CDT) WBC 18.7(H) 3.5 - 10.5 10? 3 /uL 10/21/2022 5:25 AM [facility] RBC 2.98(L) 3.80 - 5.20 10? 6 /uL 10/21/2022 5:25 AM [facility] Hemoglobin 9.4(L) 12.0 - 15.6 g/dL 10/21/2022 5:25 AM [facility] Hematocrit 27.8(L) 35.0 - 45.0 % 10/21/2022 5:25 AM [facility] MCV 93.3 80.7 - 98.3 fL 10/21/2022 5:25 AM [facility] MCH 31.5 26.7 - 34.0 pg 10/21/2022 5:25 AM [facility] MCHC 33.8 30.8 - 35.9 g/dL 10/21/2022 5:25 AM [facility] RDW-SD 48.8 36.0 - 50.0 fL 10/21/2022 5:25 AM [facility] RDW-CV 14.3 11.2 - 14.8 % 10/21/2022 5:25 AM [facility] Platelet Count 260 150 - 400 10? 3 /uL 10/21/2022 5:25 AM [facility] MPV 10.6 9.4 - 12.9 fL 10/21/2022 5:25 AM [facility] nRBC Absolute 0.00 0 10? 3 /uL 10/21/2022 5:25 AM [facility] nRBC Auto 0.0 0 /100 WBC 10/21/2022 5:25 AM [facility] Blood BLOOD SPECIMEN / Unknown Venipuncture / Unknown 10/21/2022 4:59 AM CDT 10/21/2022 5:10 AM CDT Good Antunez MD LAB - HEMATOLOGY ORD ERABLES [facility] [address] [place] [address], [facility] [phone] * (ABNORMAL) BASIC METABOLIC PANEL (CALCIUM TOTAL) (10/21/2022 4:59 AM CDT) BUN 12 7 - 26 mg/dL 10/21/2022 5:47 AM [facility] Creatinine 0.64 0.56 - 0.96 mg/dL 10/21/2022 5:47 AM [facility] Sodium 142 136 - 145 mmol/L 10/21/2022 5:47 AM [facility] Potassium 4.8(H) 3.5 - 4.5 mmol/L 10/21/2022 5:47 AM [facility] Comment:Hemolysis detected i n this specimen. Hemolysis may cause false elevations in potassium leading to pseudohyperkalemia or masked hypokalemia. Recommend repeat testing if clinically indicated. Chloride 115(H) 98 - 107 mmol/L 10/21/2022 5:47 AM [facility] CO2 16(L) 22 - 29 mmol/L 10/21/2022 5:47 AM [facility] Glucose 169(H) 70 - 115 mg/dL 10/21/2022 5:47 AM [facility] Calcium 8.2(L) 8.4 - 10.2 mg/dL 10/21/2022 5:47 AM [facility] Anion Gap 16 8 - 18 10/21/2022 5:47 AM [facility] BUN/Creatinine Ratio 19 7 - 23 10/10 5:47 AM [facility] Osmolality Calculated 298 270 - 300 mOsm/kg 10/21/2022 5:47 AM CDT [facility] eGFR by CKD-EPI >90 >=90 mL/min/1. 73 m2 10/21/2022 5:47 AM CDT [facility] Blood BLOOD SPECIMEN / Unknown Venipuncture / Unknown 10/21/2022 4:59 AM CDT 10/21/2022 5:09 AM CDT Good Antunez MD LAB - CHEMISTRY BIBIANA BLACKMAN [facility] Organization Address City/State/ZIP Co de Phone Number [facility] [address] [place] [address], [facility] [phone] * SARAH BLOOD SCREEN W/REFLEX TITER (10/21/2022 4:59 AM CDT) SARAH IgG None Detected None Detected 10/22/2022 10:36 PM CDT [employer] ([facility]) Comment: If suspicion of connective tissue disease is strong and SARAH EIA is negative, consider testing for SARAH by IFA ([id number]). INTERPRETIVE INFORMATION: Anti-Nuclear Antibodies (SARAH), IgG by EZIO Antinuclear Antibodies (ASRAH), IgG by EZIO: SARAH specimens are screened using enzyme-linked immunosorbent assay (EZIO) methodology. All EZIO results reported as Detected are further tested by indirect fluorescent assay (IFA) using HEp-2 substrate with an IgG-specific conjugate. The SARAH EZIO screen is designed to detect antibodies against dsDNA, histones, SS-A (Ro), SS-B (La), Goodwin, Goodwin/KITCHEN AIDE, Scl-70, Sariah-1, centromeric proteins, other antigens extracted from the HEp-2 cell nucleus. SARAH EZIO assays have been reported to have lower sensitivities than SARAH IFA for systemic autoimmune rheumatic diseases (SARD). Negative results do not necessarily rule out SARD. Performed By: [facility] [address] [place] [address] [employer] Security Screener: Boo Bond MD, PhD CLIA Number: [id number] Blood BLOOD SPECIMEN / Unknown Venipuncture / Unknown 10/21/2022 4:59 AM CDT 10/21/2022 5:06 AM CDT Good Antunez MD LAB - CHEMISTRY BIBIANA BLACKMAN [facility] [address] [place] [address], [facility] * FACTOR V LEIDEN MUTATION PANEL (10/21/2022 4:59 AM CDT) [facility] Signature Factor V Leiden Source Whole Blood 10/26/2022 4:46 PM CDT [facility] [employer] ([facility]) Factor V Leiden PCR/FRET Negative 10/26/2022 4:46 PM CDT [facility] [employer] ([facility]) Comment: Indication for testing: Assess genetic risk for thrombosis. NEGATIVE: The factor V Leiden variant, c.1601G>A; p.[id number], was not detected. This does not exclude [...] function in the F5 gene variant c.1601G>A (p.[id number]). Legacy nomenclature: [id number] (1691G>A) CLINICAL SENSITIVITY: 20-50 percent of individuals with an isolated VTE have the FVL variant. METHODOLOGY: Polymerase chain reaction and fluorescence monitoring. ANALYTICAL SENSITIVITY AND SPECIFICITY: 99 percent. LIMITATIONS: Diagnostic errors can occur due to rare sequence variations. F5 gene mutations, other than p.Hal159Are, will not be detected. This test was developed and its performance characteristics determined by [facility]. It has not been cleared or approved by the [place] Food and Drug Administration. This test was performed in a CLIA certified laboratory and is intended for clinical purposes. Counseling and informed consent are recommended for genetic testing. Consent forms are available online. Performed By: [place] [address] [employer] Security Screener: Boo Bond MD, PhD CLIA Number: [id number] Blood BLOOD SPECIMEN / Unknown Venipuncture / Unknown 10/21/2022 4:59 AM CDT 10/21/2022 5:10 AM CDT Good Antunez MD LAB - COAGULATION OR DERABLES Performing Organization Address City/[facility]/ZIP Co de Phone Number [facility] ([facility]) [address] [place] [address] * COMPLEMENT C3 (10/21/2022 4:59 AM CDT) Pathologist [facility] Complement C3 155 82 - 193 mg/dL 10/21/2022 5:47 AM CDT [facility] Blood BLOOD SPECIMEN / Unknown Venipuncture / Unknown 10/21/2022 4:59 AM CDT 10/21/2022 5:09 AM CDT Good Antunez MD LAB - CHEMISTRY ORDDanyelle BLACKMAN [facility] [address] [place] [address], [facility] [phone] * RHEUMATOID FACTOR BLOOD QUANTITATIVE (10/21/2022 4:59 AM CDT) Pathologist [facility] Rheumatoid Factor <15 <30 IU/mL 10/21/2022 5:36 AM CDT [facility] Rheumatoid Factor Screen Negative Negative 10/21/2022 5:36 AM CDT [facility] Blood BLOOD SPECIMEN / Unknown Venipuncture / Unknown 10/21/2022 4:59 AM CDT 10/21/2022 5:06 AM CDT Good Antunez MD LAB - CHEMISTRY ORDDanyelle BLACKMAN Performing Organization Address City/[facility]/ZIP Co de Phone Number [address] [address], [place] [phone] * TROPONIN-I HIGH SENSITIVE BASELINE + 1HR (10/21/2022 4:59 AM CDT) Troponin I High Sensitive <3 <=14 ng/L 10/21/2022 5:46 AM CDT [facility] Blood BLOOD SPECIMEN / Unknown Venipuncture / Unknown 10/21/2022 4:59 AM CDT 10/21/2022 5:09 AM CDT Jim Walter MD LAB - CHEMISTRY ORD DIMAS Performing Organization Address [facility]/ZIP Co de Phone Number [address] [address], [place] [phone] * (ABNORMAL) GLUCOSE - POINT OF CARE (10/21/2022 4:58 AM CDT) Glucose WB/POC 166(H) 70 - 115 mg/dL 10/21/2022 5:02 AM CDT [facility] Specimen Type Cap Fingerstick 2022 5:02 AM CDT [facility] Blood BLOOD SPECIMEN / Unknown 10/21/2022 4:58 AM CDT 10/21/2022 5:02 AM CDT Emir Vail MD LAB - POINT OF CARE ORDERABLES Performing Organization Address City/[facility]/ZIP Co de Phone Number [address] [address], [place] [phone] * (ABNORMAL) GLUCOSE - POINT OF CARE (10/21/2022 1:21 AM CDT) Glucose WB/POC 164(H) 70 - 115 mg/dL 10/21/2022 1:25 AM [facility] Specimen Type Cap Fingerstick 2022 1:25 AM [facility] Blood BLOOD SPECIMEN / Unknown 10/21/2022 1:21 AM CDT 10/21/2022 1:25 AM CDT Emir Vail MD LAB - POINT OF CARE ORDERABLES [facility] [address] [place] [address], [facility] [phone] * (ABNORMAL) BLOOD GASES ART + COOX PANEL (10/20/2022 10:46 PM CDT) pH Arterial 7.36 7.35 - 7.45 pH 10/20/2022 10:53 PM [facility] pO2 Arterial 179(H) 80 - 100 mmHg 10/20/2022 10:53 PM [facility] pCO2 Arterial 32(L) 35 - 45 mmHg 10:53 PM [facility] HCO3 Arterial 18.1(L) 20.0 - 30.0 mmol/L 10/20/2022 10:53 PM [facility] BE Arterial -6.5(L) -2.0 - 2.0 mmol/L 10/20/2022 10:53 PM [facility] Oxyhemoglobin Arterial 97.5 % 10/20/2022 10:53 PM [facility] Dexoyhemoglobin (HHB) % <1.0 % 10/20/2022 10:53 PM [facility] Methemoglobin 0.8 0.0 - 2.0 % 10/20/2022 10:53 PM [facility] Carboxyhemoglobin 1.0 0.0 - 2.0 % 2022 10:53 PM [facility] O2 Content Arterial 14.1 Interpret within clinical context ml/dL 10/20/2022 10:53 PM [facility] Hemoglobin by COOX 10.0(L) 12.0 - 15.6 g/dL 10/20/2022 10:53 PM CDT [facility] O2 Saturation Arterial 99 90 - 100 % 10/20/2022 10:53 PM CDT [facility] FI O2 Arterial 40.0 % 10/20/2022 10:53 PM CDT [facility] Blood, arterial ARTERIAL BLOOD SPECIMEN / Unknown Arterial Puncture / Unknown 10/20/2022 10:46 PM CDT 10/20/2022 10:51 PM CDT Narrative [facility] - 10/20/2022 10:53 PM CDT Carboxyhemoglobin Normal Concentration: Non-smokers: 0-2%; Smokers: 0-9%; Toxic: >20% Emir Vail MD LAB - BLOOD GASES OR DERABLES [facility] [address] [place] [address], [facility] [phone] * CT HEAD WO CONTRAST (10/20/2022 9:13 [...] Dictated by Bassam Jovel M.D. (vice president regulatory) I, Gonzalez Velasco MD have personally reviewed and interpreted this examination/study. > Interpreting Provider: Gonzalez Velasco MD on 10/20/2022 11:06 PM Narrative 10/20/2022 11:06 PM CDT DATE/TIME OF EXAM: ??10/20/2022 9:13 PM, LOCATION ??[facility] INDICATION: I63.411: Acute cerebrovascular accident (CVA) due to embolism of right middle cerebral artery (CMS/HCC) ADDITIONAL CLINICAL INFORMATION: Ordering Provider Reason For Exam: ??[facility] COMPARISON: Multiple prior studies, most [...] effacement of the right lateral ventricle, and [id number] midline shift measuring up to 4 mm [...] DATE/TIME OF EXAM: 10/20/2022 9:13 PM, LOCATION [facility] INDICATION: I63.411: Acute cerebrovascular accident (CVA) due to embolism of right middle cerebral artery (CMS/HCC) ADDITIONAL CLINICAL INFORMATION: Ordering Provider Reason For Exam: [facility] COMPARISON: Multiple prior studies, most [...] effacement of the right lateral ventricle, and [id number] midline shift measuring up to 4 mmand [...] Dictated by Bassam Jovel M.D. (vice president regulatory) I, Gonzalez Velasco MD have personally reviewed and interpreted this examination/study. > Interpreting Provider: Gonzalez Velasco MD on 10/20/2022 11:06 PM Emir Vail MD CT ORDERABLES * (ABNORMAL) BLOOD GAS+COOX+LYTES+METAB ARTERIAL POCT (10/20/2022 7:36 PM CDT) pH Arterial 7.36 7.35 - 7.45 pH 10/20/2022 7:36 PM [facility] pO2 Arterial 180(H) 80 - 100 mmHg 10/20/2022 7:36 PM [facility] pCO2 Arterial 36 35 - 45 mmHg 7:36 PM [facility] HCO3 Arterial 20.3 20.0 - 30.0 mmol/L 10/20/2022 7:36 PM [facility] BE Arterial -4.6(L) -2.0 - 2.0 mmol/L 10/20/2022 7:36 PM [facility] Oxyhemoglobin Arterial 97.1 % 10/20/2022 7:36 PM [facility] Dexoyhemoglobin (HHB) % 1.1 % 10/20/2022 7:36 PM [facility] Methemoglobin 0.8 0.0 - 2.0 % 10/20/2022 7:36 PM [facility] Carboxyhemoglobin 1.0 0.0 - 2.0 % 2022 7:36 PM [facility] Comment:Carboxyhemoglobin No rmal Concentration: Non-smokers: 0-2%; Smokers: 0- 9%; Toxic: >20% O2 Content Arterial 13.4 Interpret within clinical context ml/dL 10/20/2022 7:36 PM [facility] Hemoglobin by COOX 9.5(L) 12.0 - 15.6 g/dL 10/20/2022 7:36 PM [facility] O2 Saturation Arterial 99 90 - 100 % 10/20/2022 7:36 PM [facility] Sodium Whole Blood 143 135 - 145 mmol/L 10/20/2022 7:36 PM [facility] Potassium Whole Blood 3.6 3.5 - 5.5 mmol/L 10/20/2022 7:36 PM [facility] Chloride WB 116(H) 78 - 107 mmol/L 10/20/2022 7:36 PM [facility] Calcium Ionized 1.03 mmol/L 7:36 PM [facility] Ionized Calcium pH Adjusted 1.01(L) 1.19 - 1.34 mmol/L 10/20/2022 7:36 PM [facility] Anion Gap (AG) Arterial 10 8 - 18 mmol/L 10/20/2022 7:36 PM [facility] Glucose WB 155(H) 70 - 115 mg/dL 10/20/2022 7:36 PM [facility] Lactic Acid Whole Blood 1.6 <=2.0 mmol/L 10/20/2022 7:36 PM [facility] Blood, arterial ARTERIAL BLOOD SPECIMEN / Unknown 10/20/2022 7:36 PM CDT 10/20/2022 7:36 PM CDT Emir Vail MD LAB - POINT OF CARE ORDERABLES [facility] [address] [place] [id number], [facility] [phone] * BLOOD GAS ART+LYTES+METAB+COOX POC NOTIF (10/20/2022 7:27 PM CDT) Comment Notification Label Only - See Separate Report 10/20/2022 9:00 PM [facility] Other MISCELLANEOUS SAMPLES / Unknown 10/20/2022 7:27 PM CDT 10/20/2022 7:32 PM CDT Lianet Diaz MD LAB - BLOOD GASES OR DERABLES [address] [address], [facility] [phone] * HGB HCT PANEL (10/20/2022 4:40 PM CDT) Pathologist [facility] Hemoglobin 12.0 12.0 - 15.6 g/dL 10/20/2022 5:01 PM CDT [facility] Hematocrit 36.6 35.0 - 45.0 % 10/20/2022 5:01 PM CDT [facility] Blood BLOOD SPECIMEN / Unknown Venipuncture / Unknown 10/20/2022 4:40 PM CDT 10/20/2022 4:56 PM CDT Good Antunez MD LAB - HEMATOLOGY ORD ERABLES [address] [address], [place] [phone] * ECHO COMPLETE W BUBBLE STUDY (10/20/2022 4:05 PM CDT) Pathologist [facility] BSA [id number] m2 [facility] CV FUJ I PACS LV [...] PACS LVOT diam 2.1 cm [facility] CV [facility] I PACS LVOT area 3.46 cm2 [facility] CV [facility] I PACS LV RWT 0.65 [facility] CV [facility] I PACS LV Mahmood A2C 6.823 cm SSM CV F UJI PACS LV Mahmood A4C 7.092 cm SSM CV F UJI PACS IVS/LVPW 0.771 [facility] CV [facility] I PACS LV mass 2D 86.6232 66 - 150 g [facility] CV FUJI PACS LV mass index 2D 40.92 44 - 88 g/m2 [facility] MV E pk arianna 73.89 cm/s [...] HR 154 [facility] CV FUJ I PACS [id number] 6.054 cm SSM CV FUJ I PACS [id number] 5.318 cm S[facility] CV FUJ I PACS [...] body. Report dictated by Royer Stovall MD (president mortgage company). I, Amanda Prieto MD have personally reviewed [...] body. Report dictated by Royer Stovall MD (president mortgage company). I, Amanda Prieto MD have personally reviewed and interpreted this examination/study. > Interpreting Provider: Amanda Prieto MD on 10/20/2022 3:31 PM Good Antunez MD DIAGNOSTIC IMAGING O RDERABLES * (ABNORMAL) GLUCOSE - POINT OF CARE (10/20/2022 11:32 AM CDT) Glucose WB/POC 124(H) 70 - 115 mg/dL 10/20/2022 11:42 AM CDT [facility] Specimen Type Cap Fingerstick 2022 11:42 AM CDT [facility] Blood BLOOD SPECIMEN / Unknown 10/20/2022 11:32 AM CDT 10/20/2022 11:42 AM CDT Good Antunez MD LAB - POINT OF CARE ORDERABLES Performing Organization Address City/State/[facility] Co de Phone Number [facility] [address] [place] [address], [facility] [phone] * (ABNORMAL) HEMOGLOBIN A1C (10/20/2022 10:15 AM CDT) Hemoglobin A1c 6.0(H) <=5.6 % 10/20/2022 2:15 PM CDT [facility] Estimated Average Glucose 126 mg/dL 10/20/2022 2:15 PM CDT [facility] Comment: HbA1c Interpretation: Normal : < 5.7% Pre-diabetes: 5.7-6.4% Diabetes: Equal to or greater than 6.5% Test results diagnostic of diabetes should be repeated for confirmation. Treatment target values recommended by ADA and other clinical organizations should be used to evaluate metabolic control in patients. Reference: [place] [employer] Association, Standards of Care in Diabetes [...] Antunez MD LAB - CHEMISTRY [place] [facility] Organization Address City/State/ZIP Co de Phone Number [address] [address], [facility] [phone] * CT HEAD NON CONTRAST (10/20/2022 8:17 [...] - 115 mg/dL 10/20/2022 7:54 AM CDT [facility] Specimen Type Cap Fingerstick 2022 7:54 AM CDT [facility] Blood BLOOD SPECIMEN / Unknown 10/20/2022 7:47 AM CDT 10/20/2022 7:54 AM CDT Good Antunez MD LAB - POINT OF CARE ORDERABLES Performing Organization Address City/[facility]/ZIP Co de Phone Number [facility] [address] [place] [address], [facility] [phone] * (ABNORMAL) GLUCOSE - POINT OF CARE (10/20/2022 7:44 AM CDT) Glucose WB/POC 32(LL) 70 - 115 mg/dL 10/20/2022 7:54 AM CDT [facility] Specimen Type Cap Fingerstick 2022 7:54 AM CDT [facility] Blood BLOOD SPECIMEN / Unknown 10/20/2022 7:44 AM CDT 10/20/2022 7:54 AM CDT Good Antunez MD LAB - POINT OF CARE ORDERABLES [facility] [address] [place] [address], [facility] [phone] * BLOOD TYPE VERIFICATION (10/20/2022 4:00 AM CDT) ABO Rh B POS 10/20/2022 4:3 7 AM CDT [facility] Blood Bank BLOOD SPECIMEN / Unknown Venipuncture / Unknown 10/20/2022 4:00 AM CDT 10/20/2022 4:07 AM CDT Tim Callahan MD LAB - BLOOD BANK ORD ERABLES Performing Organization Address City/[facility]/ZIP Co de Phone Number [facility] [address] [place] [address], [facility] [phone] * (ABNORMAL) CBC W/O DIFFERENTIAL (10/20/2022 3:02 AM CDT) WBC 19.5(H) 3.5 - 10.5 10? 3 /uL 10/20/2022 3:30 AM CDT [facility] RBC 3.83 3.80 - 5.20 10? 6 /uL 10/20/2022 3:30 AM [facility] Hemoglobin 11.9(L) 12.0 - 15.6 g/dL 10/20/2022 3:30 AM T [facility] Hematocrit 35.4 35.0 - 45.0 % 10/20/2022 3:30 AM [facility] MCV 92.4 80.7 - 98.3 fL 10/20/2022 3:30 AM T [facility] MCH 31.1 26.7 - 34.0 pg 10/20/2022 3:30 AM T [facility] MCHC 33.6 30.8 - 35.9 g/dL 10/20/2022 3:30 AM [facility] RDW-SD 45.7 36.0 - 50.0 fL 10/20/2022 3:30 AM [facility] RDW-CV 13.5 11.2 - 14.8 % 10/20/2022 3:30 AM [facility] Platelet Count 292 150 - 400 10? 3 /uL 10/20/2022 3:30 AM [facility] MPV 9.9 9.4 - 12.9 fL 10/20/2022 3:30 AM [facility] nRBC Absolute 0.00 0 10? 3 /uL 10/20/2022 3:30 AM [facility] nRBC Auto 0.0 0 /100 WBC 10/20/2022 3:30 AM [facility] Blood BLOOD SPECIMEN / Unknown Venipuncture / Unknown 10/20/2022 3:02 AM CDT 10/20/2022 3:09 AM T Jim Walter MD LAB - HEMATOLOGY OR DERABLES [facility] [address] [place] [address], [facility] [phone] * (ABNORMAL) BASIC METABOLIC PANEL (CALCIUM TOTAL) (10/20/2022 3:02 AM CDT) BUN 6(L) 7 - 26 mg/dL 10/20/2022 3:36 AM [facility] Creatinine 0.50(L) 0.56 - 0.96 mg/dL 10/20/2022 3:36 AM [facility] Sodium 138 136 - 145 mmol/L 10/20/2022 3:36 AM [facility] Potassium 3.6 3.5 - 4.5 mmol/L 10/20/2022 3:36 AM [facility] Chloride 108(H) 98 - 107 mmol/L 10/20/2022 3:36 AM [facility] CO2 21(L) 22 - 29 mmol/L 10/20/2022 3:36 AM [facility] Glucose 140(H) 70 - 115 mg/dL 10/20/2022 3:36 AM [facility] Calcium 8.2(L) 8.4 - 10.2 mg/dL 10/20/2022 3:36 AM [facility] Anion Gap 13 8 - 18 10/20/2022 3:36 AM [facility] BUN/Creatinine Ratio 12 7 - 23 10/20/2022 3:36 AM [facility] Osmolality Calculated 286 270 - 300 mOsm/kg 10/20/2022 3:36 AM [facility] eGFR by CKD-EPI >90 >=90 mL/min/1.7 3 m2 10/20/2022 3:36 AM [facility] Blood BLOOD SPECIMEN / Unknown Venipuncture / Unknown 10/20/2022 3:02 AM CDT 10/20/2022 3:09 AM CDT Jim Walter MD LAB - CHEMISTRY ORD ERABLES [facility] [address] [place] [address], [facility] [phone] * LUPUS ANTICOAGULANT PANEL (10/20/2022 3:02 AM CDT) APTT 24.4 23.0 - 38.4 Seconds 10/20/2022 11:35 AM [facility] PT 13.6 12.1 - 14.8 Seconds 10/20/2022 11:35 AM [facility] INR 1.1 See Comment 10/20/2022 11:35 AM [facility] [place] Buffer 37.8 Seconds 023 11:35 AM [facility] [place] Phospholipid 33.2 Seconds 10/20/2022 11:35 AM [facility] [place] Delta 4.6 <8.0 Seconds 10/20/2022 11:35 AM [facility] Interpretation [place] Negative 10/20/2022 11:35 AM [facility] Comment:Up to 15-20% of douglas ents [...] Antunez MD LAB - HEMATOLOGY ORD ERABLES [facility] [address] [address], [facility] [phone] * (ABNORMAL) PROTEIN S ACTIVITY (10/20/2022 3:02 AM CDT) Protein S Activity 134(H) 57 - 131 % 10/21/2022 10:09 PM CDT [facility] ([facility]) Comment: INTERPRETIVE INFORMATION: Protein S, Functional [...] reference intervals for this test in the [facility] Test Directory (Rpptrip.com). Performed By: [employer] [address] [place] [address] Transportation Security Screener: Boo Bond MD, PhD CLIA Number: [id number] Blood BLOOD SPECIMEN / Unknown Venipuncture / Unknown 10/20/2022 3:02 AM CDT 10/20/2022 3:09 AM CDT Good Antunez MD LAB - COAGULATION OR DERABLES Performing Organization Address City/[facility]/ZIP Co de Phone Number [employer] [facility]) [address] [place] [address] * PROTEIN C ACTIVITY (10/20/2022 3:02 AM CDT) Protein C Activity 150 83 - 168 % 10/21/2022 9:44 PM CDT [employer] ([facility]) Comment: INTERPRETIVE INFORMATION: Protein C, Functional [...] reference intervals for this test in the [facility] Test Directory (Rpptrip.com). Performed By: [facility] [employer] [address] [place] [address] Transportation Security Screener: Boo Bond MD, PhD CLIA Number: [id number] Blood BLOOD SPECIMEN / Unknown Venipuncture / Unknown 10/20/2022 3:02 AM CDT 10/20/2022 3:09 AM CDT Good Antunez MD LAB - COAGULATION OR DERABLES [facility] ([facility]) [address] [place] [address], [facility] * (ABNORMAL) LIPID PROFILE (10/20/2022 3:02 AM CDT) [facility] Cholesterol Total 173 <200 mg/dL 10/20/2022 3:34 AM CDT [facility] HDL 42 >40 mg/dL 10/20/2022 3:34 AM [facility] Comment: ATP III Classification of HDL Cholesterol: ? <40 mg/dL: ??Considered a major risk factor. ? >60 mg/dL: ??Considered a negative risk factor. ? LDL Calculated 91 <100 mg/dL 10/20/2022 3:34 AM T [facility] Comment: ATP III Classification of LDL Cholesterol: ?<100 mg/dL: ??Optimal ? 100 - 129 mg/dL: ??Near Optimal/Above Optimal ? 130 - 159 mg/dL: ??Borderline High ? 160 - 189 mg/dL: ??High ?>190 mg/dL: ??Very High ? Triglycerides 201(H) <150 mg/dL 10/20/2022 3:34 AM CDT [facility] Comment: ATP III Classification of Triglycerides: ?<150 mg/dL: ??Normal ? 150 - 199 mg/dL: ??Borderline High ? 200 - 400 mg/dL: ??High ?>500 mg/dL: ??Very High Blood BLOOD SPECIMEN / Unknown Venipuncture / Unknown 10/20/2022 3:02 AM CDT 10/20/2022 3:09 AM CDT Jim Walter MD LAB - CHEMISTRY ORD ERABLES Performing Organization Address City/[facility]/ZIP Co de Phone Number [facility] [address] [place] [phone], [place] [phone] * (ABNORMAL) GLUCOSE - POINT OF CARE (10/19/2022 7:50 PM CDT) Glucose WB/POC 140(H) 70 - 115 mg/dL 10/19/2022 7:50 PM CDT [facility] Specimen Type Cap Fingerstick 2022 7:50 PM CDT [facility] Blood BLOOD SPECIMEN / Unknown 10/19/2022 7:50 PM CDT 10/19/2022 7:50 PM CDT Good Antunez MD LAB - POINT OF CARE ORDERABLES Performing Organization Address City/[facility]/ZIP Co de Phone Number [facility] [address] [place] [address], [place] [phone] * URINE DRUG SCREEN IMMUNOASSAY (10/19/2022 2:10 PM CDT) Amphetamines Screen Urine Negative Negative: < 1000 ng/mL 10/19/2022 2:48 PM CDT [facility] Barbiturates Screen Urine Negative Negative: < 200 ng/mL 10/19/2022 2:48 PM CDT [facility] Benzodiazepine Screen Urine Negative Negative: < 200 ng/mL 10/19/2022 2:48 PM CDT [facility] Opiates Urine Negative Negative: < 300 ng/mL 10/19/2022 2:48 PM CDT [facility] Cocaine Metabolites Urine Negative Negative: < 300 ng/mL 10/19/2022 2:48 PM CDT [facility] Phencyclidine Screen Urine Negative Negative: < 25 ng/ml 10/19/2022 2:48 PM CDT [facility] Cannabinoids Screen Urine Negative Negative: <50 ng/mL 10/19/2022 2:48 PM CDT [facility] Methadone Screen Urine Negative Negative: < 300 ng/mL 10/19/2022 2:48 PM CDT [facility] Fentanyl Screen Urine Negative Negative: <1.5 ng/mL 10/19/2022 2:48 PM CDT [facility] Urine URINE / Unknown Collection / Unknown 10/19/2022 2:10 PM CDT 10/19/2022 2:15 PM CDT Narrative [facility] - 10/19/2022 2:48 PM CDT The Urine Toxicology Screening Panel does not screen for Propoxyphene, Meprobamate, Carisoprodol, Trazodone, damt-zyz-unnjedz medications and/or volatiles (Acetone, Isopropanol, Methanol or Ethylene Glycol). Ethanol, Salicylate, Acetaminophen, Tricyclic Antidepressants and several therapeutic drugs may be individually assayed in serum or plasma specimen. Toxicology testing by the [facility] is an aid to medical diagnosis and treatment of patients. No documented chain of custody was maintained. Results are intended to be used for clinical purposes only. ? Good Antunez MD LAB - URINE CHEMISTR Y ORDERABLES Performing Organization Address City/[facility]/ZIP Co de Phone Number [address] [address], [place] [phone] * HCG URINE QUALITATIVE (10/19/2022 2:10 PM CDT) Test Urine Negative Negative 10/19/2022 2:29 PM CDT [facility] Urine URINE / Unknown Collection / Unknown 10/19/2022 2:10 PM CDT 10/19/2022 2:15 PM CDT Tim Callahan MD LAB - URINALYSIS ORD ERABLES Performing Organization Address [facility] Co de Phone Number [address] [address], [place] [phone] * IR [facility] THROMBECT (10/19/2022 10:41 AM CDT) Anatomical [...] 11/07/2022 9:21 AM CDT PROCEDURE: ??[facility] DATE/TIME OF EXAM: ??10/19/2022 10:41 AM [...] Time to Reperfusion: 9:54 Final TICI: 2b Satellite Installation Technician: Dr. Mitali Walter Bill Poster Installer(s): Isak Monte Vessels: Ultrasound Guided Access of Femoral Artery Ultrasound Guided Access of Radial Artery Arterial line placement in the right radial artery Right Common Carotid Artery Angiogram: Cerebral Intracranial Catheterization Mechanical Thrombectomy with Retrievable Stent and Reperfusion Catheter Angiography Through the Existing Catheter Right Femoral Artery Angiogram Anesthesia: General Anesthesia was performed and monitored by an attending Anesthesiologist and their res habilitation assistant throughout the entirety of the case [...] artery demonstrated a patent vessel. A 5 togolese sheath was placed in the radial artery [...] Following a series of exchanges, a 8 Micronesian sheath sheath was placed in the right femoral artery. A Guide and a 6 Micronesian Penumbra Select Serrano 2 catheter along with [...] system. Hemostasis was achieved using a 8 Micronesian Angio-Seal closure device. Hemostasis was immediate at [...] Walter MD - 11/07/2022 PROCEDURE: IR [facility] THROMBECT DATE/TIME OF EXAM: 10/19/2022 10:41 [...] Time to Reperfusion: 9:54 Final TICI: 2b Satellite Installation Technician: Dr. Mitali Walter Bill Poster Installer(s): Isak Monte Vessels: Ultrasound Guided Access of Femoral Artery Ultrasound Guided Access of Radial Artery Arterial line placement in the right radial artery Right Common Carotid Artery Angiogram: Cerebral Intracranial Catheterization Mechanical Thrombectomy with Retrievable Stent and Reperfusion Catheter Angiography Through the Existing Catheter Right Femoral Artery Angiogram Anesthesia: General Anesthesia was performed and monitored by an attending Anesthesiologist and their res habilitation assistant throughout the entirety of the case [...] artery demonstrated a patent vessel. A 5 togolese sheath was placedin the radial artery and was used as an arterial line. Limited ultrasoundof the common femoral artery demonstrated a patent vessel. The take off ofthe profunda and other arteries were identified. A scott scale image was documented. The right common femoral artery was accessed using a micropuncture needle. The needle entry was documented. Following aseries of exchanges, a 8 Micronesian sheath sheath was placed in the right femoral artery. A Guide and a 6 Micronesian Penumbra Select Serrano 2 catheter along with [...] arterial system.Hemostasis was achieved using a 8 Micronesian Angio-Seal closure device. Hemostasis was immediate at [...] + SCREEN PANEL (10/19/2022 8:24 AM CDT) Pathologist [facility] Antibody Screen NEG 9:34 AM CDT [facility] ABO Rh B POS 10/19/2022 9:34 AM CDT [facility] Blood Bank BLOOD SPECIMEN / Unknown Venipuncture / Unknown 10/19/2022 8:24 AM CDT 10/19/2022 8:44 AM CDT Tim Callahan MD LAB - BLOOD BANK ORD ERABLES [facility] [address] [place] [address], [facility] [phone] * PT-INR [facility] (10/19/2022 8:24 AM CDT) PT 12.3 12.1 - 14.8 Seconds 10/19/2022 9:04 AM CDT [facility] INR 0.9 See Comment 10/19/2022 9:04 AM CDT [facility] Comment:The suggested therap eutic range for standard coumadin (warfarin) therapy is an INR of 2.0-3.0. For high-risk patients (Mechanical Mitral Valve Prosthesis, etc.), the suggested prophylactic therapeutic range is an INR of 2.5-3.5. Blood BLOOD SPECIMEN / Unknown Venipuncture / Unknown 10/19/2022 8:24 AM CDT 10/19/2022 8:31 AM CDT Tim Callahan MD LAB - COAGULATION OR DERABLES Performing Organization Address [facility] Co de Phone Number [address] [address] [phone] * (ABNORMAL) COMPREHENSIVE METABOLIC PANEL (10/19/2022 8:24 AM CDT) BUN 13 7 - 26 mg/dL 10/19/2022 8:57 AM [facility] Creatinine 0.84 0.56 - 0.96 mg/dL 10/19/2022 8:57 AM [facility] Sodium 139 136 - 145 mmol/L 10/19/2022 8:57 AM [facility] Potassium 4.2 3.5 - 4.5 mmol/L 10/19/2022 8:57 AM [facility] Chloride 108(H) 98 - 107 mmol/L 10/19/2022 8:57 AM [facility] CO2 21(L) 22 - 29 mmol/L 10/19/2022 8:57 AM [facility] Glucose 109 70 - 115 mg/dL 10/19/2022 8:57 AM [facility] Calcium 8.9 8.4 - 10.2 mg/dL 10/19/2022 8:57 AM [facility] Protein Total 7.7 6.0 - 8.3 g/dL 10/19/2022 8:57 AM [facility] Albumin 3.5 3.4 - 5.0 g/dL 10/19/2022 8:57 AM [facility] Bilirubin Total 0.1(L) 0.2 - 1.2 mg/dL 10/19/2022 8:57 AM [facility] Alkaline Phosphatase 52 40 - 150 U/L 10/19/2022 8:57 AM [facility] ALT 16 5 - 55 U/L 10/19/2022 8:57 AM [facility] AST 19 5 - 34 U/L 10/19/2022 8:57 AM [facility] Anion Gap 14 8 - 18 10/19/2022 8:57 AM [facility] BUN/Creatinine Ratio 15 7 - 23 10/19/2022 8:57 AM [facility] Osmolality Calculated 289 270 - 300 mOsm/kg 10/19/2022 8:57 AM [facility] Albumin/Globulin Ratio 0.8(L) 1.1 - 2.3 10/19/2022 8:57 AM [facility] eGFR by CKD-EPI >90 >=90 mL/min/1.7 3 m2 10/19/2022 8:57 AM [facility] Blood BLOOD SPECIMEN / Unknown Venipuncture / Unknown 10/19/2022 8:24 AM CDT 10/19/2022 8:31 AM T Tim Callahan MD LAB - CHEMISTRY [place] [facility] Organization Address [facility]/State/ZIP Co de Phone Number [facility] [address] [place] [address], [facility] [phone] * (ABNORMAL) CBC W AUTO DIFFERENTIAL (10/19/2022 8:24 AM CDT) WBC 10.9(H) 3.5 - 10.5 10? 3 /uL 10/19/2022 8:39 AM [facility] RBC 4.73 3.80 - 5.20 10? 6 /uL 10/19/2022 8:39 AM [facility] Hemoglobin 14.4 12.0 - 15.6 g/dL 10/19/2022 8:39 AM [facility] Hematocrit 42.6 35.0 - 45.0 % 10/19/2022 8:39 AM [facility] MCV 90.1 80.7 - 98.3 fL 10/19/2022 8:39 AM [facility] MCH 30.4 26.7 - 34.0 pg 10/19/2022 8:39 AM [facility] MCHC 33.8 30.8 - 35.9 g/dL 10/19/2022 8:39 AM [facility] RDW-SD 43.4 36.0 - 50.0 fL 10/19/2022 8:39 AM [facility] RDW-CV 13.1 11.2 - 14.8 % 10/19/2022 8:39 AM [facility] Platelet Count 342 150 - 400 10? 3 /uL 10/19/2022 8:39 AM [facility] MPV 10.4 9.4 - 12.9 fL 10/19/2022 8:39 AM [facility] nRBC Absolute 0.00 0 10? 3 /uL 10/19/2022 8:39 AM [facility] nRBC Auto 0.0 0 /100 WBC 10/19/2022 8:39 AM [facility] Neutrophils % 67.3 35.0 - 70.0 % 10/19/2022 8:39 AM [facility] Lymphocytes % 23.9 20.0 - 43.0 % 10/19/2022 8:39 AM [facility] Monocytes % 6.4 5.0 - 13.0 % 10/19/2022 8:39 AM [facility] Eosinophils % 1.4 0.0 - 6.0 % 10/19/2022 8:39 AM [facility] Basophil % 0.6 0.0 - 2.0 % 10/19/2022 8:39 AM [facility] Neutrophils Absolute 7.33(H) 1.60 - 7.00 10? 3 /uL 10/19/2022 8:39 AM [facility] Lymphocyte Absolute 2.61 1.10 - 3.90 10? 3 /uL 10/19/2022 8:39 AM [facility] Monocytes Absolute 0.70 0.26 - 1.07 10? 3 /uL 10/19/2022 8:39 AM [facility] Eosinophils Absolute 0.15 0.00 - 0.47 10? 3 /uL 10/19/2022 8:39 AM CDT [facility] Basophils Absolute 0.07 0.00 - 0.08 10? 3 /uL 10/19/2022 8:39 AM CDT [facility] Immature Granulocytes % 0.4 0.0 - 1.0 % 10/19/2022 8:39 AM CDT [facility] Immature Granulocytes Absolute 0.04 10/19/2022 8:39 AM CDT [facility] Blood BLOOD SPECIMEN / Unknown Venipuncture / Unknown 10/19/2022 8:24 AM CDT 10/19/2022 8:31 AM CDT Tim Callahan MD LAB - HEMATOLOGY ORD ERABLES [facility] [address] [place] [address], [facility] [phone] * EKG 12-LEAD (10/19/2022 8:22 AM CDT) Ventricular Rate 129 BPM SL MUSE Atrial Rate 129 BPM [facility] MUSE P-R Interval 134 ms [facility] MUSE QRS Duration ms 90 ms [facility] MUSE Q-T Interval ms 318 ms [facility] MUSE QTC Calculation (Bezet) 465 ms [facility] MUSE Calculated P [place] 55 degrees SL MUSE Calculated R [place] 13 degrees SL MUSE Calculated T [place] 5 degrees SL MUSE Interpretation EKG SINUS TACHYCARDIA OTHERWISE NORMAL ECG NO PREVIOUS ECGS AVAILABLE Confirmed by SWATHI OTT MDSHORE ([id number]) on 10/19/2022 5:38:23 PM [facility] MUSE 10/19/2022 8:22 AM CDT 10/19/2022 5:38 PM CDT Tim Callahan MD ECG ORDERABLES [facility] MUSE * CT ANGIO BRAIN NECK STROKE (10/19/2022 8:15 AM CDT) Anatomical Region Laterality Modality Head Computed Tomogra phy 10/19/2022 8:1 7 AM CDT Impressions 10/19/2022 8:57 AM CDT [...] DATE/TIME OF EXAM: ??10/19/2022 8:16 AM, LOCATION ??[facility] INDICATION: Code Stroke ADDITIONAL CLINICAL INFORMATION: Ordering [...] STROKE, DATE/TIME OF EXAM: :16 AM, LOCATION [facility] INDICATION: Code Stroke ADDITIONAL CLINICAL INFORMATION: Ordering [...] 0.9 - 1.2 10/19/2022 8:18 AM CDT [facility] Device [id number] 10/19/2022 8:18 AM CDT [facility] Satellite Installation Technician ID [id number] 10/19/2022 8:18 AM CDT [facility] Blood BLOOD SPECIMEN / Unknown 10/19/2022 8:09 AM CDT 10/19/2022 8:18 AM CDT Provider Unknown LAB - POINT OF CARE ORDERABLES [address] [address], [facility] [phone] * CREATININE - POCT INTERFACED (10/19/2022 8:08 AM CDT) Creatinine POCT 0.78 0.30 - 1.30 mg/dL 10/19/2022 8:18 AM CDT [facility] eGFR >90 >90 mL/min/1.7 3 m2 10/19/2022 8:18 AM CDT [facility] Blood BLOOD SPECIMEN / Unknown 10/19/2022 8:08 AM CDT 10/19/2022 8:18 AM CDT Provider Unknown LAB - POINT OF CARE ORDERABLES [address] [address], [facility] [phone] * CT BRAIN - Stroke (10/19/2022 8:03 [...] DATE/TIME OF EXAM: ??10/19/2022 8:04 AM, LOCATION ??[facility] INDICATION: Code Stroke ADDITIONAL CLINICAL INFORMATION: Ordering [...] DATE/TIME OF EXAM: 10/19/2022 8:04 AM, LOCATION [facility] INDICATION: Code Stroke ADDITIONAL CLINICAL INFORMATION: Ordering [...] - 115 mg/dL 10/19/2022 8:01 AM CDT 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 Left-sided sensory deficit present Other general symptoms Dysarthria At high risk for bleeding after thrombolytic [...] hypertension GERD (gastroesophageal reflux disease) Esophageal reflux Cerebrovascular accident (CVA), unspecified mechanism (HCC) Iliac artery occlusion, right (HCC) Embolism [...] therapy: Blood, Urine/Genitourinary, Upper Respiratory, Lower Respiratory, 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 $ Given 11/17/2022 9:10 AM CDT 100 [...] AM CDT 30 mg G Tube lidocaine 1% (Xylocaine) - EPINEPHrine 1:100,000 injection PRN, Starting on Sun10/20/22 at 1947, Until 10/21/22 at 0658, Intra-op $ Given 10/20/2022 7:47 PM CDT 20 mL loratadine (Claritin) tablet 10 mg 10 mg, [...] 9:20 AM CDT 0.4 mg G Tube thrombin (Thrombogen; Thrombostat) kit PRN, Starting on Sun10/20/22 at 1948, Until 10/21/22 at 0658, Intra-op $ Given 10/20/2022 7:48 PM CDT 5,000 Units thrombin (Thrombogen; Thrombostat) vial PRN, Starting on Sun10/20/22 at 1949, Until 10/21/22 at 0658, Intra-op $ Given 10/20/2022 7:49 PM CDT 20,000 Units Head triamcinolone acetonide (Kenalog) 0.1 % ointment Topical, 2 TIMES DAILY, First dose on Sun11/15/22 at 1330, Until Discontinued, Apply to itchy areas on skin, especially at sites where adhesives are placed, twice daily. $ Given 11/17/2022 9:10 AM CDT $ Given 11/15/2022 9:43 PM CDT $ Given 11/15/2022 1:48 PM CDT vancomycin (Vancocin) injection PRN, Starting on Sun10/20/22 at 2138, Until Sun10/23/22 at 1425, Indication for anti-infective therapy: Surgical prophylaxis, Intra-op $ Given 10/20/2022 9:38 PM CDT 1,000 mg verapamil (Isoptin) tablet 40 mg 40 mg, [...] RN) 0557 ($ Given - Provider: Shruti Samuel RN)1513 ($ Given - Provider: Tasha Clay RN)2146 ($ Given - Provider: Carrillo Avilez, RN) 0534 ($ Given - Provider: Carrillo Avilez, AMBROSE)1330 (Not Administered - Provider: Chin Cabello, RN - Reason: IV Currently Infusing) 0.9% [...] therapy: Blood, Urine/Genitourinary, Upper Respiratory, Lower Respiratory, 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 0920 ($ Given - Provider: Radha Covarrubias RN)2129 ($ Given - Provider: Shruti Samuel RN) 1004 ($ Given - Provider: Tasha Clay RN)2147 ($ Given - Provider: Carrillo Avilez, AMBROSE) [...] 1004 ($ Given - Provider: Tasha Clay RN)2146 ($ Given - Provider: Carrillo Avilez, RN) 0909 ($ Given - Provider: Chin Cabello, RN) guaiFENesin (Robitussin) solution 10 mL 10 mL, Enteral Tube, EVERY 12 HOURS, First dose on 10/23/22 at 0915, Until Discontinued 0920 ($ Given - Provider: Radha Covarrubias, RN)2132 ($ Given - Provider: Shruti Samuel, AMBROSE) 1207 ($ Given - Provider: Tasha Clay, RN - Comment: AM dose given late)2147 ($ Given - Provider: Carrillo Avilez, RN) 0910 ($ Given - Provider: Chin [...] ($ Given - Provider: Carrillo Avilez RN) lidocaine (Xylocaine) 1 % injection (COMPLETED) Subcutaneous, ONCE, 1 dose, On Sun11/15/22 at 1215 1158 ($ Given - Provider: Josesito Alexis, RT(R) - Comment: Lumbar Region) loratadine (Claritin) tablet 10 mg 10 mg, Enteral Tube, DAILY, First dose (after last modification) on Sun10/21/22 at 0900, Until Discontinued 919 ($ Given - Provider: Radha Covarrubias RN) [...] Carrillo Avilez RN)2226 (Stopped - Provider: Carrillo Avilez RN) 0408 ($ New Bag/Syringe - Provider: Carrillo Avilez RN)0443 (Stopped - Provider: Carrillo Avilez RN)1327 ($ New Bag/Syringe - Provider: Chin Cabello, AMBROSE)1403 (Stopped - Provider: Chin Cabello, AMBROSE) metoprolol tartrate IR (Lopressor) tablet 25 [...] AMBROSE)1512 ($ Given - Provider: Tasha Clay, RN)2155 ($ Given - Provider: Carrillo Avilez, AMBROSE) 0534 ($ Given - Provider: Carrillo Avilez, AMBROSE)1404 ($ Given - Provider: Chin Cabello, RN) vitamin D3 (Cholecalciferol) 25 MCG (1000 UNITS) tablet 2,000 Units 2,000 Units, Enteral Tube, DAILY, First dose (after last modification) on Sun10/21/22 at 0900, Until Discontinued, 1000 units = 25 mcg 0920 ($ Given - Provider: Radha Covarrubias, RN) 1004 ($ Given - Provider: Tasha [...] blood draws. 0557 ($ Given - Provider: Shrtui Samuel RN) acetaminophen (Tylenol) tablet 500 mg [...] request must be documented in the MAY. 06 ($ Given - Provider: Bess John RN)1352 [...] RN)1003 ($ Given - Provider: Tasha Clay, RN)1741 ($ Given - Provider: Tasha Clay, AMBROSE) [...] documented as of this encounter Care Teams Reliability Technicians Relationship Specialty Start Date End Date Jean Joy MD PCP - OBGYN 12/27/07 Yvan Booth MD [address] [place] [id number] PCP - General 11/04/09 01/04/23 Jaden Thakur DO [address] [place] [address] [id number] PCP - Attributed-[facility] STL 09/10/19 06/28/23 documented as of this encounter
--- OUTSIDE RECORDS SUMMARY | 2024-03-19 20:47 | XMS_ITS | Encounter Summary ---
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 [place] [address] Refill Request Social History Tobacco Use Types Packs/Day Years Used Date Smoking Tobacco: Former Cigarettes Q uit: 2015 Smokeless Tobacco: Never Alcohol Use Standard Drinks/Week Comments No 0 (1 standard drink = 0.6 oz pur e alcohol) Occasional PHQ-2 Answer Date Recorded PHQ2 TOTAL SCORE 0 01/10/2021 Sex and Gender Information Value Date Recorded Sex Assigned at Not on file Gender Identity Not on file Sexual Orientation Not on file documented as of this encounter Functional Status Functional Status Response Date of Assess ment Is person deaf or have serious hearing difficult y? No 08/25/2021 Is person blind or have serious difficulty seein g? No 08/25/2021 Does person have serious dif ficulty walking/climbing stairs? No 08/25/2021 Does person have difficulty dressing/bathing? No 08/25/2021 Does person have difficulty doing errands alone? No 08/25/2021 Cognitive Status Response Date of Assessm ent Does person have difficulty concentrating/remembering/making decisions? No 08/25/2021 documented as of this encounter Miscellaneous Notes * Telephone Encounter - Serene Bagley RN - 01/27/2022 7:55 AM CST Last seen 01/10/2021. WWE scheduled for 02/08/2022. 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
--- OUTSIDE RECORDS SUMMARY | 2024-03-19 20:47 | XMS_ITS | Encounter Summary ---
Author Organization [facility] Address [address] [place] [address] Care Team Providers Care Montessori Lead Teacher Name Role Phone Jean Joy MD Unavailable [phone] Yvan Booth MD Primary Care Provider [phone] Reason for Visit * Reason Onset Date Comments Eye Problem Encounter Opened In Error 05/07/2017 Encounter Details Date Type Department Care Team (Late st Contact Info) Description 05/07/2017 4:00 PM PRISON TEACHER Video Visit [facility] [facility] - [facility] [address] [place] [address] Provider, [facility] [address] [place] [address] ERRONEOUS ENCOUNTER--DISREGARD Social History Tobacco Use Types Packs/Day Years Used Date Smoking Tobacco: Former Cigarettes Smokeless Tobacco: Never Alcohol Use Standard Drinks/Week Comments No 0 (1 standard drink = 0.6 oz pur e alcohol) Occasional Sex and Gender Information Value Date Recorded Sex Assigned at Not on file Gender Identity Not on file Sexual Orientation Not on file documented as of this encounter Functional Status Functional Status Response Date of Assess ment Is person deaf or have serious hearing difficult y? No 03/01/2016 Is person blind or have serious difficulty seein g? No 03/01/2016 Does person have serious dif ficulty walking/climbing stairs? No 03/01/2016 Does person have difficulty dressing/bathing? No 03/01/2016 Does person have difficulty doing errands alone? No 03/01/2016 Cognitive Status Response Date of Assessm ent Does person have difficulty concentrating/remembering/making decisions? No 03/01/2016 documented as of this encounter Progress Notes * Martha Consuelo Noonann, AMANDA-SCALP TREATMENT SPECIALIST - 05/07/2017 3:47 PM CST Pt lives in [place]-unable to do video visit ERRONEOUS encounter [facility] Chief Complaint Patient presents with ??? Eye Problem SUBJECTIVE: HPI Past Medical History: Diagnosis Date ??? Abdominal pain, right upper quadrant ??? GERD (gastroesophageal reflux disease) ??? History of hypertension gestational hypertension Current Outpatient Prescriptions on File Prior to Visit Medication Sig Dispense Refill ??? AVIANE 0.1-20 MG-MCG tablet TAKE 1 TABLET BY MOUTH ONCE DAILY 28 Tab 11 ??? raNITIdine (ZANTAC) 150 MG tablet Take 150 mg by mouth as needed ??? Cetirizine HCl (ZYRTEC PO) Take 10 mg by mouth once daily No current facility-administered medications on file prior to visit. Past Surgical History: Procedure Laterality Date ??? Section ??? Section 03/01/2016 SECTION REPEAT ??? Cholecystectomy ??? Cholecystectomy, Laparoscopic 02/22/2012 N/A; LAPAROSCOPIC CHOLECYSTECTOMY SINGLE INCISION ??? COLONOSCOPY Social History Social History ??? Marital status: Spouse name: N/A ??? Number of children: N/A ??? 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 Smoking status: Former Smoker Packs/day: 0.50 Types: Cigarettes ??? Smokeless tobacco: Never Used ??? Alcohol use No Comment: Occasional ??? Drug use: No ??? Sexual activity: Yes Partners: Male control/ protection: Pill Other Topics Concern ??? Special Diet No Social History Narrative Family History Problem Relation Age of Onset ??? Cancer Maternal Grandfather Lung ??? Diabetes Maternal Grandfather ??? Diabetes Maternal Grandmother ??? Hypertension Mother ??? Thyroid Disease Mother Current Outpatient Prescriptions Medication Sig Dispense Refill ??? AVIANE 0.1-20 MG-MCG tablet TAKE 1 TABLET BY MOUTH ONCE DAILY 28 Tab 11 ??? raNITIdine (ZANTAC) 150 MG tablet Take 150 mg by mouth as needed ??? Cetirizine HCl (ZYRTEC PO) Take 10 mg by mouth once daily No current facility-administered medications for this visit. Allergies Allergen Reactions ??? 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 There were no vitals taken for this visit. Physical Exam ASSESSMENT: No results found for this visit on 05/07/17. No diagnosis found. PLAN: No orders of the defined types were placed in this encounter. Consuelo Darby encounter was opened in error. Please disregard any activity associated with this encounter. ON TEACHER documented in this encounter Plan of Treatment Not on file documented as of this encounter Visit Diagnoses Diagnosis ERRONEOUS ENCOUNTER--DISREGARD- Primary documented in this encounter Care Teams Montessori Lead Teacher Relationship Specialty Start Date End Date Jean Joy MD PCP - OBGYN 12/27/07 Yvan Booth MD [address] [place] [address] PCP - General 11/04/09 01/04/23 documented as of this encounter
--- OUTSIDE RECORDS SUMMARY | 2024-03-19 20:47 | XMS_ITS | Encounter Summary ---
Author Organization [facility] Address [address] [place] [address] Care Team Providers Care Labor Relations Analyst Name Role Phone Jean Joy MD Unavailable [phone] Yvan Booth MD Primary Care Provider [phone] Jaden Thakur DO Unavailable [phone] Reason for Visit * Reason Onset Date Comments MEDICATION REFILL 11/24/2019 Encounter Details Date Type Department Care Team (Late st Contact Info) Description 11/24/[address] 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 [place] [address] MEDICATION REFILL Social History Tobacco Use Types [...] No 03/01/2016 documented as of this encounter Patient Instructions * Patient Instructions* Taylor Bradley MA - 11/24/2019 2:47 PM CDT Has appt 12-26-19. documented in this encounter Plan of Treatment Not on file documented as of this encounter Visit Diagnoses Not on filedocumented in this encounter Care Teams Labor Relations Analyst Relationship Specialty Start Date End Date Jean Joy MD PCP - OBGYN 12/27/07 Yvan Booth MD [address] [place] [phone] PCP - General 11/04/09 01/04/23 Jaden Thakur DO [address] [place] [id number] PCP - Attributed-[facility] E[facility] STL 09/10/19 06/28/23 documented as of this encounter
--- OUTSIDE RECORDS SUMMARY | 2024-03-19 20:47 | XMS_ITS | Encounter Summary ---
Author Organization [facility] Address [address] [place] [address] Care Team Providers Care Website Admin Name Role Phone Jean Joy MD Unavailable [phone] Yvan Booth MD Primary Care Provider [phone] Jaden Thakur DO Unavailable [phone] Encounter Details Date Type Department Care Team (Latest Contact Info) Description 06/28/2022 Travel Social History Tobacco Use Types Packs/Day Years Used Date Smoking Tobacco: Former Cigarettes Q uit: 2014 Smokeless Tobacco: Never Alcohol Use Standard Drinks/Week Comments No 0 (1 standard drink = 0.6 oz pur e alcohol) Occasional PHQ-2 Answer Date Recorded PHQ2 TOTAL SCORE 0 02/08/2022 Sex and Gender Information Value Date Recorded Sex Assigned at Not on file Gender Identity Not on file Sexual Orientation Not on file COVID-19 Exposure Response Date Recorded In the last 10 days, have yo u been in contact with someone who was confirmed or suspected to have Coronavirus/COVID-19? No / Unsure 06/28/2022 7:08 AM CDT documented as of this encounter Functional Status [...] No 08/25/2021 documented as of this encounter Plan of Treatment Not on file documented as of this encounter Visit Diagnoses Not on filedocumented in this encounter Care Teams Website Admin Relationship Specialty Start Date End Date Jean Joy MD PCP - OBGYN 12/27/07 Yvan Booth MD [address] [place] [phone] PCP - General 11/04/09 01/04/23 Jaden Thakur DO [address] [place] [phone] PCP - Attributed-[facility] EHP STL 09/10/19 06/28/23 documented as of this encounter
--- OUTSIDE RECORDS SUMMARY | 2024-03-19 20:47 | XMS_ITS | Encounter Summary ---
Author Organization [facility] Address [address] [place] [address] Care Team Providers Care Buffing Wheel Inspector Name Role Phone Jean Joy MD Unavailable [phone] Yvan Booth MD Primary Care Provider [phone] Jaden Thakur DO Unavailable [phone] Reason for Visit * Auth/Cert Specialty Diagnoses / Procedures Referred By Contac t Referred To Contact Diagnoses Screen for colon cancer Screen for colon cancer [Z12.11] Procedures COLONOSCOPY SCREEN Referral ID Status Reason Start Date Expiration Date Visits Re quested Visits Authorized [id number] 1 1 Encounter Details Date Type Department Care Team (Latest Contact Info) Description 08/25/2021 7:59 AM CDT - 08/25/2021 11:07 AM CDT Hospital Encounter [facility] - Endoscopy Surgery [address] [place] [address] Sathya Foster MD [address] [place] [address] Surgery General Discharge Disposition: Home or Self [...] Sign Reading Time Taken Comments Blood Pressure 122/71 08/25/2021 10:55 AM CDT Pulse 74 08/25/2021 11:00 AM CDT Temperature 36.6 ??C (97.8 ??F) 08/25/2021 10:20 AM C DT Respiratory Rate 18 08/25/2021 10:20 AM CDT Oxygen Saturation 98% 08/25/2021 11:00 AM CDT Inhaled Oxygen Concentration - - Weight 84.8 kg (187 lb) 08/25/2021 8:19 AM CDT Height 162.6 cm (5' 4 ) 08/25/2021 8:19 AM CDT Body Mass Index 32.1 08/25/2021 8:19 AM CDT documented in this encounter Functional [...] No 08/25/2021 documented as of this encounter Medications at Time of Discharge Medication Sig Dispensed Refills Start Date End Date Cetirizine HCl (ZYRTEC PO) Take 10 mg by mouth once daily amitriptyline (Elavil) 25 MG tablet Take 1 (one) tablet by mouth at bedtime 10/19/2022 levonorgestrel-ethiny l estradiol (LESSINA-28) 0.1-20 MG-MCG tabletIndications:Con traceptive Therapy TAKE 1 TABLET BY MOUTH EVERY DAY CONTINUOUSLY Reasons: Control Treatment 84 tablet 4 01/10/2021 01/27/2022 omeprazole (PriLOSEC) 20 MG capsule Take 20 mg by mouth daily before breakfast Vitamin D3, cholecalciferol, 50 MCG (1999 UT) tablet Take 1 (one) tablet by mouth once daily 01/05/2023 documented as of this encounter H&P Notes * Sathya Foster MD - 08/25/2021 10:00 AM CDT ENDOSCOPY PRE-PROCEDURE MEDICAL HISTORY & PHYSICAL NOTE 08/25/2021 Consuelo Darby 40 year old female BP 135/69 Pulse 96 Temp 97.5 ??F (36.4 ??C) (Temporal) Resp 20 Ht 1.626 m (5' 4 ) Wt 84.8 kg (187 lb) SpO2 100% BMI 32.1 kg/m2 History: Past Medical History: Diagnosis Date ??? Abdominal pain, right upper quadrant ??? GERD (gastroesophageal reflux disease) ??? History of hypertension gestational hypertension Past Surgical History: Procedure Laterality Date ??? Section ??? Section 03/01/2016 SECTION REPEAT ??? Cholecystectomy ??? Cholecystectomy, Laparoscopic 02/22/2012 N/A; LAPAROSCOPIC CHOLECYSTECTOMY SINGLE INCISION ??? COLONOSCOPY Allergies Allergen Reactions ??? 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 amitriptyline (ELAVIL) 25 MG tablet Take 25 mg by mouth at bedtime ??? Cetirizine HCl (ZYRTEC PO) Take 10 mg by mouth once daily ??? levonorgestrel-ethinyl estradiol (LESSINA-28) 0.1-20 MG-MCG tablet TAKE 1 TABLET BY MOUTH EVERYDAY CONTINUOUSLY Reasons: Control Treatment 84 tablet 4 ??? omeprazole (PRILOSEC) 20 MG capsule Take 20 mg by mouth daily before breakfast ??? Vitamin D3, cholecalciferol, 50 MCG (1999 UT) tablet Take 2,000 Units by mouth once daily Current Facility-Administered Medications Medication Dose Route Frequency Provider Last Rate Last Admin ??? lactated ringers infusion Intravenous pre-OP continuous Jerry Uriarte MD New Bag at 08/25/21 0957 ??? lidocaine PF (Xylocaine MPF) 1 % injection 0.2 mL 0.2 mL Infiltration pre-OP multiple Jerry Uriarte MD Physcial Exam: General appearance: alert, cooperative, no distress Heart: regular rhythm, normal S1 and S2, without murmurs, rubs or gallops Lungs: breath sounds normal and symmetric; no rales or wheezes Abdomen: soft without mass, non-tender, with normal bowel sounds Extremities: no clubbing, cyanosis or edema Sedation Plan: Anesthesia administered per Anesthesia Department Indication(s) for Procedure: Colon Screen - high risk Procedure Planned: Colonoscopy Sathya Foster MD documented in this encounter Plan of Treatment Not on file documented as of this encounter Procedures Procedure Name Priority Date/Time Associated Diagnosis Comments CARDIAC RHYTHM STRIP ORDER 08/27/2021 11:50 AM CDT PATHOLOGY TISSUE EXAM (STL) Routine 08/25/2021 10:14 AM CDT Screen for colon cancer Personal history of colonic polyps COLONOSCOPY REMOVAL OR ABLATION TUMOR/POLYP/LESION (ANY METHOD) 08/25/2021 9:59 AM CDT Screen for colon cancer COLONOSCOPY SCREEN 08/25/2021 9: 59 AM CDT Screen for colon cancer ENDOSCOPY, COLON, SCREENING Routine 08/25/2021 9:58 AM CDT HCG URINE QUALITATIVE - POCT (IP) INTERFACED Routine 08/25/2021 8:23 AM CDT HCG URINE QUAL POCT NOTIFICATION Routine 08/25/2021 8:21 AM CDT Preop examination documented in this encounter Results * CARDIAC RHYTHM STRIP ORDER (08/27/2021 11:50 AM CDT) Narrative 08/27/2021 11:50 AM CDT Ordered by an unspecified provider. Scanned Document CARDIAC SERVICES ORD ERABLES * PATHOLOGY TISSUE EXAM (STL) (08/25/2021 10:14 AM CDT) Case Report Surgical Pathology Report ? Case: [id number] ? Authorizing Provider: ??Sathya Foster MD ?Collected: ? 08/25/2021 10:14 AM ? Ordering Location: ? [facility] ? Received: ?08/25/2021 12:57 PM ? Pathologist: ? Gagan Cramer MD ? Specimen: ?Polyp Sigmoid ? 08/26/2021 2:52 PM CDT [facility] Final Diagnosis A. Polyp, sigmoid colon, polypectomy: -- Hyperplastic polyp. -- No evidence of dysplasia, or malignancy. FROYLAN/cj 08/26/2021 2:52 PM T [facility] Clinical History Screening for colon cancer. Personal history of colonic polyps. 08/26/2021 2:52 PM CDT [facility] Gross Description Received in one formalin-filled container labeled with the patient's name, Consuelo Darby, and sigmoid polyp . It consists of five reddish-duncan soft tissue fragments, ranging in greatest dimension from less than 0.1 to 0.3 cm. The specimen is marked with hematoxylin and entirely submitted in cassette A1. FROYLAN/sadia 08/26/2021 2:52 PM CDT [facility] Microscopic Description Reactive lymphoid aggregates are seen. 08/26/2021 2:52 PM T [facility] Disclaimer All histochemical and/or immunohistochemical results [...] be interpreted with caution. 08/26/2021 2:52 PM CDT [facility] Embedded Images 08/26/2021 2:52 PM CDT [facility] Pathology/Cytolo gy POLYP OF SIGMOID COLON / Unknown 08/25/2021 10:14 AM CDT 08/25/2021 12:57 PM CDT Comment:Pre-op diagnosis: Screen for colon cancer [Z12.11] Sathya Foster MD LAB - PATHOLOGY/CYTO LOGY ORDERABLES [facility] [address] [place] [address] * ENDOSCOPY, COLON, SCREENING (08/25/2021 9:58 [...] Procedure Code(s): ? --- Professional --- ? 56698, Colonoscopy, flexible; with biopsy, single or multiple ? --- Technical --- ? 50140, Colonoscopy, flexible; with biopsy, single or multiple [...] abscess ? without bleeding CPT copyright 2019 [employer]. All rights reserved. The codes documented in this report are preliminary and upon purse seining hand review may be revised to meet current compliance requirements. ___ Sathya Foster MD 08/25/2021 10:19:15 AM This report has been signed electronically. Number of Addenda: 0 Note Initiated On: 08/25/2021 9:58 AM [facility] 08/25/2021 9:58 AM CDT Sathya Foster MD GI PROCEDURE ORDERAB LES [facility] * HCG URINE QUALITATIVE - POCT (IP) INTERFACED (08/25/2021 8:23 AM CDT) HCG Qual Urine Negative Negative 08/25/2021 8:29 AM CDT [facility] Urine URINE / Unknown 08/25/2021 8 :23 AM CDT 08/25/2021 8:29 AM CDT Sathya Foster MD LAB - POINT OF CARE ORDERABLES [facility] [address] [place] [id number] * HCG URINE QUAL POCT NOTIFICATION (08/25/2021 8:21 AM CDT) Comment Notification Label Only - See Separate Report 08/25/2021 9:33 AM CDT [facility] Urine URINE / Unknown 08/25/2021 8 :21 AM CDT 08/25/2021 8:21 AM CDT Sathya Foster MD LAB - URINALYSIS ORD ERABLES [facility] [address] [address] documented in this encounter Visit Diagnoses Diagnosis Preop examination- Primary Preoperative examination, unspecified Screen for colon cancer Special screening for malignant neoplasms, colon Personal history of colonic polyps documented in this encounter Administered Medications Inactive Administered Medications - up to 3 most recent administrations Medication Order MAR Action Action Date Dose Rate Site lactated ringers infusion at 20 mL/hr, Intravenous, PRE-OP CONTINUOUS, Starting on Katy 08/25/21 at 0900, Until Katy 08/25/21 at 1311, Pre-op $ New Bag/Syringe 08/25/2021 9:57 AM CDT lidocaine PF (Xylocaine MPF) 1 % injection 0.2 mL 0.2 mL, Infiltration, PRE-OP MULTIPLE, 3 doses, Starting on Katy 08/25/21 at 0849, Until Katy 08/25/21 at 1311, May be used (0.2 ml locally to anesthetize prior to insertion)., Pre-op documented in this encounter Active and Recently Administered Medications Times are shown in CDT. Scheduled Medication Order 08/23/2021 08/24/2021 08/25/2021 lidocaine PF (Xylocaine MPF) 1 % injection 0.2 mL 0.2 mL, Infiltration, PRE-OP MULTIPLE, 3 doses, Starting on Katy 08/25/21 at 0849, Until Katy 08/25/21 at 1311, May be used (0.2 ml locally to anesthetize prior to insertion)., Pre-op Continuous Medication Order 08/23/2021 08/24/2021 08/25/2021 lactated ringers infusion at 20 mL/hr, Intravenous, PRE-OP CONTINUOUS, Starting on Katy 08/25/21 at 0900, Until Katy 08/25/21 at 1311, Pre-op 0957 ($ New Bag/Syri nge - Provider: Aminata Cain APRN-CORY)1016 (Anesthesia Volume Adjustment - Provider: AMOR Chacon) documented in this encounter Care Teams Buffing Wheel Inspector Relationship Specialty Start Date End Date Jean Joy MD PCP - OBGYN 12/27/07 Yvan Booth MD [address] [place] [id number] PCP - General 11/04/09 01/04/23 Jaden Thakur DO [address] [place] [id number] PCP - Att[facility] ST[facility] 09/10/19 06/28/23 documented as of this encounter
--- OUTSIDE RECORDS SUMMARY | 2024-03-19 20:47 | XMS_ITS | Encounter Summary ---
Author Organization [facility] Address [address] [facility] [place] [address] Care Team Providers Care Gem Expert Name Role Phone Jean Joy MD Unavailable [phone] Yvan Booth MD Primary Care Provider [phone] Reason for Visit * Reason Comments Sinusitis Eye Problem Encounter Details Date Type Department Care Team (Late st Contact Info) Description 05/07/2017 6:00 PM MIXER PIGMENT Office Visit [facility] AT [address] [address] Provider, [facility] Acute maxillary sinusitis, recurrence not specified (Primary Dx); Mucopurulent conjunctivitis of both eyes Social History Tobacco Use Types Packs/Day Years [...] Sign Reading Time Taken Comments Blood Pressure 122/78 05/07/2017 6:12 PM MIXER PIGMENT Pulse 106 05/07/2017 6:12 PM MIXER PIGMENT Temperature 36.9 ??C (98.5 ??F) 05/07/2017 6:12 PM CS T Respiratory Rate 16 05/07/2017 6:12 PM MIXER PIGMENT Oxygen Saturation 98% 05/07/2017 6:12 PM MIXER PIGMENT Inhaled Oxygen Concentration - - Weight 77.1 kg (170 lb) 05/07/2017 6:12 PM MIXER PIGMENT Height 162.6 cm (5' 4 ) 05/07/2017 6:12 PM MIXER PIGMENT Body Mass Index 29.18 05/07/2017 6:12 PM MIXER PIGMENT documented in this encounter Functional Status Functional [...] this encounter Patient Instructions * Patient Instructions* David Leggett APRN-HCC CODERS - 05/07/2017 6:34 PM MIXER PIGMENT Bacterial Conjunctivitis is contagious until you have been on antibiotic eye drops for 24 hours. -Please wash your hands frequently and avoid touching and rubbing your eye(s) -Discard any eye makeup that you have been using. -If you wear contacts please disposed of your current ones and only open a new pair when your eye returns to normal. -Cool compresses as needed for irritation. Conjunctivitis - How to use eye drops You must be on antibiotic eye drops for at least 24 hours before returning to work or school ??? Tilt your head back. With one finger gently pull down on one lower eyelid ??? Drop the prescribed number of drops into one eye. DO NOT BLINK. Repeat for the other eye. ??? Then close both eyes WITHOUT BLINKING and block your tear ducts by using your fingers to put mild pressure on your tear ducts (where your eyes meet your nose). Stay in this position for 1-2 minutes to bathe your eyes in the medication. ??? Repeat according to the instructions on your prescription. FOLLOW-UP: If your eye(s) are not improving or worsening, or if you develop vision change or eye pain, over the next 24-48 hours you need to see an eye doctor IMMEDIATELY. -Take and finish your prescriptions as directed. -If not already using, please start nasal saline wash, either Neti Pot or Sinus Rinse DAILY or a saline nasal spray 3-4 times a day. -Use guaifenesin expectorants (Maximum Strength Mucinex, Robitussin, store brand) to loosen secretions. -For cough you can use dextromethorphan (Delsym syrup, Robitussin cough capsules or store brand). Dextromethorphan is considered safe for and breast feeding women. -Increase fluid intake: drink 2 liters (2 quarts) of non-caffeinated, non- alcoholic beverages daily, drinking alcohol causes nasal and sinus membranes to swell -Steam inhalation and warm compresses to face often help relieve pressure -Avoid allergens and excessively dry heat -Sleep with head of bed elevated to encourage drainage. -Use of a humidifier if environment is heated by dry forced - air system -Avoid smoking, second-hand smoke and air pollutants. -You may try decongestants such as Sudafed (purchase at pharmacy) or Sudafed PE for congestion relief. Decongestants can keep you awake at night. Do not use decongestants if you have high blood pressure or if you are Pseudoephedrine (Sudafed) and Phenylephrine (Sudafed PE) are generally con sidered safe for breast feeding mothers. -If you are not improving or worsening, or develop facial swelling,in the next 3-5 days you must RETURN to the clinic, go to your PCP, or Urgent Care/ER to be SEEN and reevaluated. No further prescriptions or refills will be given by phone without another evaluation. R PIGMENT documented in this encounter Progress Notes * David Leggett APRN-CNP - 05/07/2017 6:34 PM CST Subjective: Consuelo Darby is a 36 y.o. female who presents for evaluation: Chief Complaint Patient presents with ??? Sinusitis ??? Eye Problem Primary Care Physician is Yvan Booth MD. Symptoms include congestion, cough and bilateral eye redness and drainage (started two days ago). Onset of symptoms was 1 month ago, gradually worsening since that time. congestion, bilateral ear pressure/pain, sinus pressure, non productive cough. She is drinking plenty of fluids. Evaluation to date: none. Treatment to date: none Allergies Allergen Reactions ??? 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 amoxicillin-clavulanate (AUGMENTIN) 875-125 MG tablet Take 1 tablet by mouth 2 times daily withmorning and evening meal for 10 days ??? trimethoprim-polymyxin B (POLYTRIM) 56098-2.1 UNIT/ML-% ophthalmic solution 1 drop every 3 hours for 7 days Past Medical History: Diagnosis Date ??? Abdominal pain, right upper quadrant ??? GERD (gastroesophageal reflux disease) ??? History of hypertension gestational hypertension Social History Social History ??? Marital status: [...] ??? Special Diet No Social History Narrative Medications reviewed. Review of Systems Constitutional: Negative for fatigue, fevers, chills. Eyes: Positive for redness bilaterally Ears, nose, mouth, and throat: Negative for vertigo, tonsillitis Respiratory: Negative for shortness of breath, dyspnea on exertion, wheezing Cardiovascular: Negative Objective: BP 122/78 (BP SITE: LEFT ARM, BP POSITION: SITTING, BP CUFF SIZE: Adult) Pulse 106 Temp 98.5 ??F (Oral) Resp 16 Ht 1.626 m (5' 4 ) Wt 77.1 kg (170 lb) SpO2 98% BMI 29.18 kg/m2 Skin: Physical Exam Exam General appearance: alert, cooperative, no distress Eyes: sclera and conjunctiva clear, EOMI and PERRLA, lids normal, Right Eye - conjunctivae/corneas - conjunctival injection and thick mucopurulent drainage to inner canthus, Left Eye - conjunctivae/corneas - conjunctival injection and matting to lower lash line Ears: canals clear, tympanic membranes normal, hearing intact to voice Nose: nares open; no septal deviation is noted, mucosa erythematous and swollen, purulent rhinorrhea, maxillary tenderness bilaterally, frontal tenderness bilaterally Throat: no mucous membrane abnormalities Neck: range of motion is intact, no masses, thyroid not enlarged, no adenopathy Lungs: breath sounds normal and symmetric; no rales or wheezes Heart: regular rhythm, normal S1 and S2, without murmurs, gallops or rubs Assessment: . Encounter Diagnoses Name Primary? Acute maxillary sinusitis, recurrence not specified Yes ??? Mucopurulent conjunctivitis of both eyes Plan: Discussed the dx and tx of sinusitis. -Take and finish your prescriptions as directed. -If not already using, please start nasal saline wash, either Neti Pot or Sinus Rinse DAILY or a saline nasal spray 3-4 times a day. -Use guaifenesin expectorants (Maximum Strength Mucinex, Robitussin, store brand) to loosen secretions. -For cough you can use dextromethorphan (Delsym syrup, Robitussin cough capsules or store brand). Dextromethorphan is considered safe for and breast feeding women. -Increase fluid intake: drink 2 liters (2 quarts) of non-caffeinated, non- alcoholic beverages daily, drinking alcohol causes nasal and sinus membranes to swell -Steam inhalation and warm compresses to face often help relieve pressure -Avoid allergens and excessively dry heat -Sleep with head of bed elevated to encourage drainage. -Use of a humidifier if environment is heated by dry forced - air system -Avoid smoking, second-hand smoke and air pollutants. -You may try decongestants such as Sudafed (purchase at pharmacy) or Sudafed PE for congestion relief. Decongestants can keep you awake at night. Do not use decongestants if you have high blood pressure or if you are Pseudoephedrine (Sudafed) and Phenylephrine (Sudafed PE) are generally con sidered safe for breast feeding mothers. -If you are not improving or worsening, or develop facial swelling,in the next 3-5 days you must RETURN to the clinic, go to your PCP, or Urgent Care/ER to be SEEN and reevaluated. No further prescriptions or refills will be given by phone without another evaluation. Bacterial Conjunctivitis is contagious until you have been on antibiotic eye drops for 24 hours. -Please wash your hands frequently and avoid touching and rubbing your eye(s) -Discard any eye makeup that you have been using. -If you wear contacts please disposed of your current ones and only open a new pair when your eye returns to normal. -Cool compresses as needed for irritation. Conjunctivitis - How to use eye drops You must be on antibiotic eye drops for at least 24 hours before returning to work or school ??? Tilt your head back. With one finger gently pull down on one lower eyelid ??? Drop the prescribed number of drops into one eye. DO NOT BLINK. Repeat for the other eye. ??? Then close both eyes WITHOUT BLINKING and block your tear ducts by using your fingers to put mild pressure on your tear ducts (where your eyes meet your nose). Stay in this position for 1-2 minutes to bathe your eyes in the medication. ??? Repeat according to the instructions on your prescription. FOLLOW-UP: If your eye(s) are not improving or worsening, or if you develop vision change or eye pain, over the next 24-48 hours you need to see an eye doctor IMMEDIATELY. Continue to follow up with Yvan Booth MD as directed. After Visit Summary reviewed with patient. The patient indicates understanding of these issues and agrees with the plan. Patient discharged to Home .BRUCE Kramer 05/07/2017 6:34 PM Orders Placed This Encounter ??? amoxicillin-clavulanate (AUGMENTIN) 875-125 MG tablet Sig: Take 1 tablet by mouth 2 times daily with morning and evening meal for 10 days Dispense: 20 tablet Refill: 0 ??? trimethoprim-polymyxin B (POLYTRIM) 64354-2.1 UNIT/ML-% ophthalmic solution Si drop every 3 hours for 7 days Dispense: 1 bottles Refill: 0 No results found for this or any previous visit (from the past 24 hour(s)). R PIGMENT documented in this encounter Plan of Treatment Not on file documented as of this encounter Visit Diagnoses Diagnosis Acute maxillary sinusitis, recurrence not specified- Primary Mucopurulent conjunctivitis of both eyes documented in this encounter Care Teams Gem Expert Relationship Specialty Start Date End Date Jean Joy MD PCP - OBGYN 12/27/07 Yvan Booth MD [address] [place] [address] PCP - General 11/04/09 01/04/23 documented as of this encounter
--- OUTSIDE RECORDS SUMMARY | 2024-03-19 20:47 | XMS_ITS | Encounter Summary ---
Author Organization [facility] Address [address] [place] [address] Care Team Providers Care Quantitative Manager Name Role Phone Jean Joy MD Unavailable [phone] Yvan Booth MD Primary Care Provider [phone] Jaden Thakur DO Unavailable [phone] Reason for Visit * Auth/Cert (Routine) Specialty Diagnoses / Procedures Referred By Contac t Referred To Contact Referral ID Status Reason Start Date Expiration Date Visits Re quested Visits Authorized [id number] 1 1 Encounter Details Date Type Department Care Team (Late st Contact Info) Description 10/19/2022 8:49 AM CDT Anesthesia Event [facility] IVR [address] [place] [id number] Shahbaz Bowen MD [address] [facility] [place] [address] Larisa Morrison, SENIOR INTERACTIVE PRODUCER-[employer] [address] [place] [address] Anesthesia Record Procedure Summary Procedure Name Responsible Anesthesiologist Anesthesia Start Time Anesthesia Stop Time IR INTRACRANIAL MECH THROMBECT Shahbaz Bowen MD 10/19/22 0849 10/19/22 1054 Events Date Time Event Comment 10/19/2022 0849 An Start 0849 An Start Data 0849 Pt In Room 0849 PT Reassessment 0852 Induction 0854 An Intubation 0857 Anes Ready 0859 Time Out Anesthesia part icipated in timeout at the time documented in the record by nursing 0902 Proc Start 1001 Proc Stop 1012 An Emergence 1029 Extubation 1038 ANPTO2 1039 an stop data 1039 Pt out of Room 1054 An Stop Meds Name Total fentaNYL 100 mcg/2ml injection 50 mcg lidocaine PF 2% 100 mg propofol 200mg/20mL injection 200 mg rocuronium 50 mg/5 mL injection 60 mg succinylcholine (ANECTINE) 20 mg/mL inje ction 100 mg phenylephrine 100 mcg/mL syringe 400 mcg dexamethasone 10 mg/ml PF injection 4 mg famotidine 20 mg/2mL injection 20 mg ondansetron 4mg/2mL injection 4 mg sugammadex 200 mg/2mL injection 300 mg nitroGLYCERIN 100 mcg/mL syringe 100 mcg niCARdipine (CARDENE) capsule 25 mg labetalol (Normodyne; Trandate) injectio n 10 mg 5 mg NS (0.9% NaCl) 1,000 mL Isolyte-S infusion 400 mL * Agents Name Insp. N2O Exp. Sevoflurane Exp. N2O O2 Flow - Auxiliary O2 Insp. Sevoflurane * Blood No blood administrations on file. Lines, Drains, and Airways Type Details Placement Removal Peripheral IV Date: 10/19/22; Time : 0752; Orientation: Left, Posterior 10/19/22 0752 by Bharat Oreilly RN 10/23/22 0600 by Shauna Martines, AMBROSE Peripheral IV Date: 10/19/22; Time : 0815; Orientation: Right 10/19/22 0815 by Bharat Oreilly RN 10/23/22 0600 by Shauna Martines, AMBROSE ETT Date: 10/19/22; Time : 0854; Placed By: AMOR Bah; Vent: easy mask; Induction: Standard IV; Blade Type: Michelle; Blade Size: 2; Laryngoscopy View: Grade 1 (full cords); Intubation Adjuncts: Cricoid Pressure; Tube: Endotracheal Tube; Placement: Oral; Tube Type: Cuffed-inflated; Tube Size(mm): 7 MM; Depth of Insertion: 23 CM; Measured From: teeth; Attempts: 1; Cuff Infated: Air; Verified By: Direct visualization, Bilateral breath sounds, Chest Auscultation, CO2 Monitor 10/19/22 0854 by Larisa Morrison APRN-CRNA 10/19/22 1029 by Larisa Morrison APRN-CRNA Puncture Site 10/19/22; 0854; Dr Walter; Right; Femoral; Arterial; Dr Walter; 11/06/22; 1327 10/19/22 0854 by Yeimy Booker RN 11/06/22 1327 by Zeinab Vargas RN Arterial Sheath 10/19/22; 0900; Dr Walter; Right; Femoral; 8 Welsh; Injectable; Well, General Anesthesia; unknown, removed by IR; 10/19/22; 1030; Per protocol 10/19/22 0900 by Yeimy Booker RN 10/19/22 1030 by Jackelyn Flores RN Puncture Site 10/19/22; 0910; Dr Walter; Right; Radial; Arterial; 11/06/22; 1327 10/19/22 0910 by Yeimy Booker RN 11/06/22 1327 by Zeinab Vargas RN Puncture Site 10/19/22; 0915; Dr Walter; Right; Femoral; Arterial; 11/06/22; 1328 10/19/22 0915 by Yeimy Booker RN 11/06/22 1328 by Zeinab Vargas RN Arterial Sheath 10/19/22; 0916; Dr Walter; Right; Femoral; 7 Welsh; Injectable; Well, General Anesthesia; Dr Walter; 10/19/22; 1001; Treatment Completed; No complications 10/19/22 0916 by Yeimy Booker RN 10/19/22 1001 by Yeimy Booker RN External Urinary Catheter 10/19/22; 1100; Well; 10/19/22; 214710/19/22 1100 by Jackelyn Flores RN 10/19/222147 by Niko Figueroa documented in this encounter Social History Tobacco [...] Date Recorded PHQ2 TOTAL SCORE 0 02/08/2022 [facility] [place] of Occupat ional Health - Occupational Stress [...] as of this encounter Progress Notes * Shahbaz Bowen MD - 10/19/2022 11:05 AM CDT ANESTHESIA POSTOP EVALUATION NOTE Procedure: IR INTRACRANIAL MECH THROMBECT Consuelo Darby is a 41 year old female Patient Vitals for the past 6 hrs: BP Temp Pulse Resp SpO2 10/19/22 1100 -- -- (!) 110 23 99 % 10/19/22 1115 -- 97.3 ??F (36.3 ??C) (!) 112 18 99 % 10/19/22 1130 -- -- (!) 112 22 99 % 10/19/22 1145 123/66 -- (!) 112 20 94 % 10/19/22 1200 135/78 -- (!) 117 25 95 % 10/19/22 1215 123/72 -- (!) 111 21 95 % 10/19/22 1230 125/74 -- 104 24 94 % 10/19/22 1245 120/73 -- 101 23 93 % 10/19/22 1300 -- -- (!) 130 20 95 % 10/19/22 1315 132/82 -- (!) 114 25 98 % 10/19/22 1330 135/81 -- (!) 128 21 98 % 10/19/22 1345 138/77 -- (!) 120 24 98 % 10/19/22 1400 140/78 -- (!) 112 23 97 % 10/19/22 1414 152/91 -- 109 -- -- 10/19/22 1415 141/79 -- (!) 110 23 98 % 10/19/22 1430 137/85 -- 97 27 99 % 10/19/22 1433 151/89 -- 94 22 99 % 10/19/22 1445 135/86 -- 96 27 99 % 10/19/22 1500 132/82 -- 99 23 98 % 10/19/22 1515 135/85 -- 100 25 98 % 10/19/22 1530 123/80 -- 105 28 98 % 10/19/22 1545 130/77 -- 106 26 98 % 10/19/22 1600 146/80 98.4 ??F (36.9 ??C) (!) 121 29 97 % 10/19/22 1615 126/84 -- (!) 112 27 98 % Anesthesia Type: general * No Diagnosis Codes entered * Mental Status: awake Neuro Status: No numbness, tingling or visual disturbances Respiratory Function: natural and requires O2 Postop Pain: acceptable to the patient Postop Hydration: adequate Postop Nausea: none Assessment: no apparent anesthetic complications, patient tolerated procedure well and no evidence of recall Patient Disposition: Release from Anesthesia Care NOTABLE EVENTS: No notable events documented. * Shahbaz Bowen MD - 10/19/2022 10:00 AM CDT ANESTHESIA PREOPERATIVE EVALUATION NOTE Procedure: IR INTRACRANIAL MECH THROMBECT Vitals: Patient Vitals for the past 6 hrs: BP Temp Pulse Resp SpO2 10/19/22 1615 126/84 -- (!) 112 27 98 % 10/19/22 1600 146/80 98.4 ??F (36.9 ??C) (!) 121 29 97 % 10/19/22 1545 130/77 -- 106 26 98 % 10/19/22 1530 123/80 -- 105 28 98 % 10/19/22 1515 135/85 -- 100 25 98 % 10/19/22 1500 132/82 -- 99 23 98 % 10/19/22 1445 135/86 -- 96 27 99 % 10/19/22 1433 151/89 -- 94 22 99 % 10/19/22 1430 137/85 -- 97 27 99 % 10/19/22 1415 141/79 -- (!) 110 23 98 % 10/19/22 1414 152/91 -- 109 -- -- 10/19/22 1400 140/78 -- (!) 112 23 97 % 10/19/22 1345 138/77 -- (!) 120 24 98 % 10/19/22 1330 135/81 -- (!) 128 21 98 % 10/19/22 1315 132/82 -- (!) 114 25 98 % 10/19/22 1300 -- -- (!) 130 20 95 % 10/19/22 1245 120/73 -- 101 23 93 % 10/19/22 1230 125/74 -- 104 24 94 % 10/19/22 1215 123/72 -- (!) 111 21 95 % 10/19/22 1200 135/78 -- (!) 117 25 95 % 10/19/22 1145 123/66 -- (!) 112 20 94 % 10/19/22 1130 -- -- (!) 112 22 99 % 10/19/22 1115 -- 97.3 ??F (36.3 ??C) (!) 112 18 99 % 10/19/22 1100 -- -- (!) 110 23 99 % LMP: Patient's last menstrual period was 02/01/2022 (approximate). OB Status: Continuous Control ANESTHESIA PRE-EVALUATION NOTE History of Present Illness: 41 yo F presenting straight to room for mechanical thrombectomy for stroke Physical Exam: No Orientation X3 Airway/Mallampati Score: II Mouth Opening Distance: 2.5 fingerwidths Neck ROM: full TM Distance: > 3 FB Teeth: normal Heart: normal - S1 S2 Lungs: clear to ausculation bilaterally Abdomen Exam: obese and soft ANESTHESIA PLAN ASA Score: 3 E Anesthetic plan was discussed with: patient The patient's procedural Anesthetic Plan was discussed with the anesthesiologist. Overall additional findings/comments: . BMI, Height, Weight Tobacco History Estimated body mass index is 36.06 kg/m?? as calculated from the following: Height as of this encounter: 1.626 m (5' 4 ). Weight as of this encounter: 95.3 kg (210 lb 1.3 oz). Social History Tobacco Use Smoking Status Former [...] Medication ??? *Hold/Avoid Medication ??? 0.9% NaCl IV New Bag at 10/19/22 1330 ??? 0.9% NaCl 3 mL And ??? 0.9% NaCl 1-10 mL ??? 0.9% NaCl 3 mL 3 mL at 10/19/22 1414 And ??? 0.9% NaCl 3 mL ??? amitriptyline 100 mg ??? labetalol 10 mg 10 mg at 10/19/22 1433 Or ??? hydrALAZINE 10 mg ??? iopamidol 100 mL at 10/19/22 0806 ??? loratadine 10 mg ??? metoprolol tartrate IR 25 mg ??? niCARdipine 0-15 mg/hr 2.5 mg/hr at 10/19/22 1506 ??? pantoprazole EC 40 mg ??? verapamil CR 120 mg ??? 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 Recent Labs Result Component Current Result Alkaline Phosphatase 52 (10/19/2022) ALT 16 (10/19/2022) Anion Gap 14 (10/19/2022) AST 19 (10/19/2022) eGFR by CKD-EPI >90 (10/19/2022) documented in this encounter Procedure Notes * Larisa Morrison APRN-CRNA - 10/19/2022 9:09 AM CDTAssociated Order(s): ETT Placement Endotracheal Tube Placement: Patient Location: OR. Intubation Event Date/Time: 10/19/2022 8:54 AM Procedure: intubation ([id number]). Procedure Section: Induction: standard IV Patient Position: sniffing Mask Ventilation: easy. Blade Type: Michelle Blade [...] and CO2 monitor Tube secured with: adhesive tape and ETT bhatt. Dentition unchanged? Yes Difficult Airway? No. Procedure Start Time: 10/19/2022 8:54 AM. Staff Section Anesthesia Provider: Larisa Morrison APRN-CRNA, Performed the procedure Provider #1: Shahbaz Bowen MD. documented in this encounter Miscellaneous Notes * Anesthesia Transfer of Care - Larisa Morrison APRN-CRNA - 10/19/2022 10:50 AM CDT ANESTHESIA TRANSFER OF CARE NOTE Today's Date: 10/19/2022 Date of : 1980 Patient: Consuelo Darby * No procedures listed * Surgeon(s): * No surgeons listed * Preop Diagnosis: * No Diagnosis Codes entered * Pre-op Meds (From admission, onward) Start Stop Status Route Frequency Ordered 10/19/22 0820 *Hold/Avoid Medication -- Verified OTHER DIRECTED 10/19/22 0821 10/19/22 0830 *Hold/Avoid Medication -- Verified OTHER EVERY 12 HOURS ( and 20) 10/19/22 0821 10/19/22 0900 0.9% NaCl infusion -- Dispensed IV CONTINUOUS 10/19/22 0821 10/19/22 0755 0.9% NaCl injection 1-10 mL See Hyperspace for full Linked Orders Report. -- Dispensed IK PRN 10/19/22 0756 10/19/22 0845 0.9% NaCl injection 10 mL 10/19/22 0831 Completed IK ONCE 10/19/22 0821 10/19/22 0845 0.9% NaCl injection 10 mL 10/19/22 0833 Completed IK ONCE 10/19/22 0821 10/19/22 0830 0.9% NaCl injection 3 mL [...] Report. -- Dispensed IK PRN 10/19/22 0821 10/19/22 0929 heparinized saline 2 units/mL infusion 10/19/22 0929 Completed OTHER CONTINUOUS PRN 10/19/22 0930 10/19/22 0901 hydrALAZINE (Apresoline) injection 10 mg See Hyperspace for full Linked Orders Report. -- Verified IV EVERY 20 MIN PRN 10/19/22 0902 10/19/22 0935 iopamidol (Isovue 300) 61 % contrast 10/19/22 0935 Completed ONCE PRN 10/19/22 1035 10/19/22 0805 iopamidol (Isovue 370) 76 % contrast 10/21/22 0804 Dispensed IV CONTRAST ONCE 10/19/22 0805 10/19/22 0901 labetalol (Normodyne; Trandate) injection 10 mg See Hyperspace for full Linked Orders Report. -- Verified IV EVERY 15 MIN PRN 10/19/22 0902 10/19/22 0853 lidocaine (Xylocaine) 1 % injection 10/19/22 0853 Completed SC ONCE PRN 10/19/22 0915 10/19/22 0909 lidocaine (Xylocaine) 1 % injection 10/19/22 0909 Completed SC ONCE PRN 10/19/22 0916 10/19/22 0924 nitroGLYCERIN 200 mcg/ml in dextrose 5 % 300 mcg, verapamil (Isoptin) 2,500 mcg 2.5 mL 10/19/22 0924 Completed ONCE PRN 10/19/22 0924 10/19/22 0845 tenecteplase (TNKase) injection 24 mg 10/19/22 0832 Completed IV ONCE 10/19/22 0821 * No Diagnosis Codes entered * . Allergies Allergen Reactions ??? 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: Patient Vitals for the past 3 hrs: BP Temp Pulse Resp SpO2 10/19/22 0833 160/96 -- -- -- -- 10/19/22 0827 174/91 98.5 ??F (36.9 ??C) (!) 116 23 96 % 10/19/22 0803 174/91 -- (!) 116 23 96 % Lines, Drains, and Airways Type Details Placement Removal Peripheral IV Date: 10/19/22; Time: 751; Orientation: Left, Posterior; Location: Hand; Gauge: 18 Gauge 10/19/22 0752 by Bharat Oreilly RN Peripheral IV Date: 10/19/22; Time: 814; Orientation: Right; Location: Antecubital; Gauge: 18 Gauge 10/19/22 0815 by Bharat Oreilly RN ETT Date: 10/19/22; Time: 0854; Placed By: AMOR Bah; Vent: easy mask; Induction: Standard IV; Blade Type: Michelle; Blade Size: 2; Laryngoscopy View: Grade 1 (full cords); Intubation Adjuncts: Cricoid Pressure; Tube: Endotracheal Tube; Placement: Oral; Tube Type: Cuffed-inflated; Tube Size(mm): 7 MM; Depth of Insertion: 23 CM; Measured From: teeth; Attempts: 1; Cuff Infated: Air; Verified By: Direct visualization, Bilateral breath sounds, Chest Auscultation, CO2 Monitor 10/19/22 0854 by Larisa Morrison APRN-CRNA 10/19/22 1029 by Larisa Morrison APRN-CRNA Intraprocedure I/O Totals None Patient Transfer Location: ICU Transport Airway: supplemental O2 and spontaneous respirations Transport Monitoring: heart rate, continuous pulse oximetry, frequent blood pressure checks and panel monitor Complications: None Handoff Given? Yes AMOR Bah documented in this encounter Plan of Treatment Not on file documented as of this encounter Procedures Procedure Name Priority Date/Time Associated Diagnosis Comments ENDOTRACHEAL TUBE NOTE Routine 10/19/2022 9:09 AM CDT documented in this encounter Results * ETT LINE PERFORMABLE (10/19/2022 9:09 AM CDT) Narrative Larisa Morrison APRN-CRNA - 10/19/2022 9:09 AM CDT Larisa Morrison APRN-CRNA ? 10/19/2022 ??9:09 AM Endotracheal Tube Placement: ? Patient Location: OR. Intubation Event Date/Time: ??10/19/2022 8:54 AM Procedure: intubation ([id number]). Procedure Section: ?? Induction: standard IV Patient [...] Shahbaz Bowen MD GENERAL ANESTHESIA O RDERABLES documented in this encounter Visit Diagnoses Not on filedocumented in this encounter Administered Medications Inactive Administered Medications - up to 3 most recent administrations Medication Order MAR Action Action Date Dose Rate Site 0.9% NaCl infusion Intravenous, CONTINUOUS PRN, Starting on Katy 10/19/22 at 0849, Until Katy 10/19/22 at 1054, Anesthesia Intra-op $ New Bag/Syringe 10/19/2022 8:49 AM CDT dexAMETHasone Sod Phosphate PF injection Intravenous, PRN, Starting on Katy 10/19/22 at 0955, Until Katy 10/19/22 at 1054, Anesthesia Intra-op $ Given 10/19/2022 9:55 AM CDT 4 mg famotidine (Pepcid) injection Intravenous, PRN, Starting on Katy 10/19/22 at 0955, Until Katy 10/19/22 at 1054, Anesthesia Intra-op $ Given 10/19/2022 9:55 AM CDT 20 mg fentaNYL (PF) (Sublimaze) injection Intravenous, PRN, Starting on Katy 10/19/22 at 0852, Until Katy 10/19/22 at 1054, Anesthesia Intra-op $ Given 10/19/2022 8:52 AM CDT 50 mcg isolyte-S pH 7.4 infusion Intravenous, CONTINUOUS PRN, Starting on Katy 10/19/22 at 0849, Until Katy 10/19/22 at 1054, Anesthesia Intra-op $ New Bag/Syringe 10/19/2022 8:49 AM CDT labetalol (Normodyne; Trandate) injection 10 mg 10 [...] Given 10/19/2022 10:17 AM CDT 5 mg lidocaine HCl (PF) (Xylocaine MPF) 2 % injection Intravenous, PRN, Starting on Katy 10/19/22 at 0852, Until Katy 10/19/22 at 1054, Anesthesia Intra-op $ Given 10/19/2022 8:52 AM CDT 100 mg niCARdipine (Cardene) capsule Oral, PRN, Starting on Katy 10/19/22 at 1016, Until Katy 10/19/22 at 1054, Anesthesia Intra-op $ Given 10/19/2022 10:31 AM CDT 7 mg $ Given 10/19/2022 10:16 AM CDT 10 mg $ Given 10/19/2022 10:12 AM CDT 5 mg nitroGLYCERIN 100 mcg/ml injection Intravenous, PRN, Starting on Katy 10/19/22 at 0940, Until Katy 10/19/22 at 1054, Anesthesia Intra-op $ Given 10/19/2022 9:40 AM CDT 50 mcg $ Given 10/19/2022 9:34 AM CDT 50 mcg ondansetron (Zofran) injection Intravenous, PRN, Starting on Katy 10/19/22 at 1011, Until Katy 10/19/22 at 1054, Anesthesia Intra-op $ Given 10/19/2022 10:11 AM CDT 4 mg phenylephrine 100 mcg/mL injection Intravenous, PRN, Starting on Katy 10/19/22 at 0926, Until Katy 10/19/22 at 1054, Anesthesia Intra-op $ Given 10/19/2022 9:59 AM CDT 100 mcg $ Given 10/19/2022 9:45 AM CDT 100 mcg $ Given 10/19/2022 9:26 AM CDT 200 mcg propofol (Diprivan) injection Intravenous, PRN, Starting on Katy 10/19/22 at 0852, Until Katy 10/19/22 at 1054, Anesthesia Intra-op $ Given 10/19/2022 8:52 AM CDT 200 mg rocuronium (Zemuron) injection Intravenous, PRN, Starting on Katy 10/19/22 at 0901, Until Katy 10/19/22 at 1054, Anesthesia Intra-op $ Given 10/19/2022 9:52 AM CDT 10 mg $ Given 10/19/2022 9:01 AM CDT 50 mg succinylcholine (Anectine) injection Intravenous, PRN, Starting on Katy 10/19/22 at 0853, Until Katy 10/19/22 at 1054, Anesthesia Intra-op $ Given 10/19/2022 8:53 AM CDT 100 mg sugammadex (Bridion) injection Intravenous, PRN, Starting on Katy 10/19/22 at 1011, Until Katy 10/19/22 at 1054, Anesthesia Intra-op $ Given 10/19/2022 10:11 AM CDT 300 mg documented in this encounter Care Teams Quantitative Manager Relationship Specialty Start Date End Date Jean Joy MD PCP - OBGYN 12/27/07 Yvan Booth MD [address] [place] [id number] PCP - General 11/04/09 01/04/23 Jaden Thakur DO [address] [place] [id number] PCP - Attributed-[facility] 09/10/19 06/28/23 documented as of this encounter
--- OUTSIDE RECORDS SUMMARY | 2024-03-19 20:47 | XMS_ITS | Encounter Summary ---
Author Organization [facility] Address [address] [place] [address] Care Team Providers Care Hoop Flaring Machine Operator Name Role Phone Jean Joy MD Unavailable [phone] Yvan Booth MD Primary Care Provider [phone] Jaden Thakur DO Unavailable [phone] Reason for Visit * Auth/Cert Specialty Diagnoses / Procedures Referred By Contac t Referred To Contact Diagnoses Screen for colon cancer Screen for colon cancer [Z12.11] Procedures COLONOSCOPY SCREEN Referral ID Status Reason Start Date Expiration Date Visits Re quested Visits Authorized [id number] 1 1 Encounter Details Date Type Department Care Team (Late st Contact Info) Description 08/25/2021 10:00 AM CDT - 08/25/2021 10:30 AM CDT Surgery [facility] - Endoscopy Surgery [address] [place] [address] Sathya Foster MD [address] [facility] [address] [place] [address] COLONOSCOPY SCREEN Surgery Details Date/Time Status Location OR Service Patient Class Case Class Case Type Trauma Case? 08/25/2021 10:00 AM Posted [facility] 01 Gastroenterology Surgery Day Care Elective > 5 days Panel 1 Procedure LRB Anes Op Region Wound Class Comments COLONOSCOPY SCREEN N/A MAC Clean Conta minated COLONOSCOPY REMOVAL OR ABLAT ION TUMOR/POLYP/LESION (ANY METHOD) N/A Clean Con taminated Surgeon Surgeon Role Service Panel Sathya Foster MD Primary Gastroenterology 1 documented in this encounter Social [...] Sign Reading Time Taken Comments Blood Pressure 131/73 08/25/2021 10:30 AM CDT Pulse 86 08/25/2021 10:30 AM CDT Temperature 36.6 ??C (97.8 ??F) 08/25/2021 10:20 AM C DT Respiratory Rate 18 08/25/2021 10:20 AM CDT Oxygen Saturation 96% 08/25/2021 10:30 AM CDT Inhaled Oxygen Concentration - - [...] 20 mg by mouth daily before breakfast 3 Vitamin D3, cholecalciferol, 50 MCG (1999 UT) tablet Take 1 (one) tablet by mouth once daily 01/05/2023 documented as of this encounter H&P Notes * Sathya Foster MD - 08/25/2021 10:00 AM CDT ENDOSCOPY PRE-PROCEDURE MEDICAL HISTORY & PHYSICAL NOTE 08/25/2021 Consuelo Dayami Darby 40 year old female BP 135/69 [...] Case Report Surgical Pathology Report ? Case: [id number] ? Authorizing Provider: ??Sathya Foster MD ?Collected: ? 08/25/2021 10:14 AM ? Ordering Location: ? [facility] ? Received: ?08/25/2021 12:57 PM ? Pathologist: ? Gagan Cramer MD ? Specimen: ?Polyp Sigmoid ? 08/26/2021 2:52 PM CDT [facility] Final Diagnosis A. Polyp, sigmoid colon, polypectomy: -- Hyperplastic polyp. -- No evidence of dysplasia, or malignancy. FROYLAN/cj 08/26/2021 2:52 PM CDT [facility] Clinical History Screening for colon cancer. Personal history of colonic polyps. 08/26/2021 2:52 PM CDT [facility] Gross Description Received in one formalin-filled container labeled with the patient's name, Mehnaz, Consuelo, and sigmoid polyp . It consists of five reddish-duncan soft tissue fragments, ranging in greatest dimension from less than 0.1 to 0.3 cm. The specimen is marked with hematoxylin and entirely submitted in cassette A1. SD/na 08/26/2021 2:52 PM T [facility] Microscopic Description Reactive lymphoid aggregates are seen. 08/26/2021 2:52 PM T [facility] Disclaimer All histochemical and/or immunohistochemical results are interpreted with controls that demonstrate appropriate staining reactions before reporting results. Note on use of immunocytochemistry reagents: This test was developed and its performance characteristic determined by [facility], Department of Laboratory Medicine. It has not [...] interpreted with caution. 08/26/2021 2:52 PM CDT [facility] Embedded Images 08/26/2021 2:52 PM T [facility] Pathology/Cytolo gy POLYP OF SIGMOID COLON / Unknown 08/25/2021 10:14 AM CDT 08/25/2021 12:57 PM CDT Comment:Pre-op diagnosis: Screen for colon cancer [Z12.11] Sathya Foster MD LAB - PATHOLOGY/CYTO LOGY ORDERABLES [facility] [address] [place] [address] * ENDOSCOPY, COLON, SCREENING (08/25/2021 9:58 [...] Procedure Code(s): ? --- Professional --- ? 14722, Colonoscopy, flexible; with biopsy, single or multiple ? --- Technical --- ? 79130, Colonoscopy, flexible; with biopsy, single or multiple [...] abscess ? without bleeding CPT copyright 2019 [employer]. All rights reserved. The codes documented in this report are preliminary and upon meteorologist in charge review may be revised to meet current compliance requirements. ___ Sathya Foster MD 08/25/2021 10:19:15 AM This report has been signed electronically. Number of Addenda: 0 Note Initiated On: 08/25/2021 9:58 AM [facility] 08/25/2021 9:58 AM CDT Sathya Foster MD GI PROCEDURE ORDERAB LES [facility] * HCG URINE QUALITATIVE - POCT (IP) INTERFACED (08/25/2021 8:23 AM CDT) HCG Qual Urine Negative Negative 08/25/2021 8:29 AM CDT [facility] Urine URINE / Unknown 08/25/2021 8 :23 AM CDT 08/25/2021 8:29 AM CDT Sathya Foster MD LAB - POINT OF CARE ORDERABLES [facility] [address] [address] * HCG URINE QUAL POCT NOTIFICATION (08/25/2021 8:21 AM CDT) Comment Notification Label Only - See Separate Report 08/25/2021 9:33 AM CDT [facility] Urine URINE / Unknown 08/25/2021 8 :21 AM CDT 08/25/2021 8:21 AM CDT Sathya Foster MD LAB - URINALYSIS ORD ERABLES Performing Organization Address City/[facility] Co de Phone Number [facility] [address] [place] [address] documented in this encounter Visit Diagnoses Diagnosis Preop examination- Primary Preoperative examination, unspecified Screen for colon cancer Special screening for malignant neoplasms, colon Personal history of colonic polyps Screen for colon cancer Special screening for malignant neoplasms, colon documented in this encounter Administered Medications Inactive [...] New Bag/Syri nge - Provider: Aminata Cain APRN-INVENTORY CONTROL ASSISTANT)1016 (Anesthesia Volume Adjustment - Provider: AMOR Chacon) documented in this encounter Care Teams Hoop Flaring Machine Operator Relationship Specialty Start Date End Date Jean Joy MD PCP - OBGYN 12/27/07 Yvan Booth MD [address] [place] [id number] PCP - General 11/04/09 01/04/23 Jaden Thakur DO [address] [place] [address] [id number] PCP - Attributed-[facility] STL 09/10/19 06/28/23 documented as of this encounter
--- OUTSIDE RECORDS SUMMARY | 2024-03-19 20:47 | XMS_ITS | Encounter Summary ---
Author Organization [facility] Address [address] [place] [address] Care Team Providers Care Unhairing Inspector Name Role Phone Jean Joy MD Unavailable [phone] Yvan Booth MD Primary Care Provider [phone] Jaden Thakur DO Unavailable [phone] Encounter Details Date Type Department Care Team (Latest Contact Info) Description 06/15/2022 7:41 AM CDT - 06/15/2022 11:59 PM CDT Hospital Encounter [facility] - Lab [facility] [place] [address] Discharge Disposition: Home or Self Care Social [...] suspected to have Coronavirus/COVID-19? No / Unsure 06/15/2022 7:41 AM CDT documented as of this encounter [...] (one) tablet by mouth at bedtime 10/19/2022 levonorgestrel-ethinyl estradiol (LESSINA-28) 0.1-20 MG-MCG tabletIndications:Cont raceptive Therapy TAKE 1 TABLET BY MOUTH EVERY DAY FOR CONTROL Reasons: Control Treatment 84 tablet 4 02/08/2022 11/17/2022 omeprazole (PriLOSEC) 20 MG capsule Take 20 mg by mouth daily before breakfast 12/26/2022 Vitamin D3, cholecalciferol, 50 MCG (1999 UT) tablet Take 1 (one) tablet by mouth once daily 01/05/2023 documented as of this encounter Plan of Treatment Not on file documented as of this encounter Procedures Procedure Name Priority Date/Time Associated Diagnosis Comments TSH REFLEX FREE T4 Routine 06/15/2022 7: 57 AM CDT Screening for lipoid disorders Screening for endocrine, metabolic and immunity disorder Vitamin D deficiency Encounter for preventive health examination VITAMIN D 25-HYDROXY Routine 06/15/2022 7:57 AM CDT Screening for lipoid disorders Screening for endocrine, metabolic and immunity disorder Vitamin D deficiency Encounter for preventive health examination CBC W AUTO DIFFERENTIAL Routine 06/15/2022 7:57 AM CDT Screening for lipoid disorders Screening for endocrine, metabolic and immunity disorder Vitamin D deficiency Encounter for preventive health examination COMPREHENSIVE METABOLIC PANEL Routine 06/15/2022 7:57 AM CDT Screening for lipoid disorders Screening for endocrine, metabolic and immunity disorder Vitamin D deficiency Encounter for preventive health examination LIPID PROFILE Routine 06/15/2022 7:57 AM CDT Screening for lipoid disorders Screening for endocrine, metabolic and immunity disorder Vitamin D deficiency Encounter for preventive health examination documented in this encounter Results * CBC W DIFFERENTIAL (06/15/2022 7:57 AM CDT) WBC 9.6 3.5 - 10.5 10? 3 /uL 06/15/2022 8:19 AM [facility] RBC 4.60 3.80 - 5.20 10? 6 /uL 06/15/2022 8:19 AM [facility] Hemoglobin 14.1 12.0 - 15.6 g/dL 06/15/2022 8:19 AM [facility] Hematocrit 42.5 35.0 - 45.0 % 06/15/2022 8:19 AM [facility] MCV 92.4 80.7 - 98.3 fL 06/15/2022 8:19 AM [facility] MCH 30.7 26.7 - 34.0 pg 06/15/2022 8:19 AM [facility] MCHC 33.2 30.8 - 35.9 g/dL 06/15/2022 8:19 AM [facility] RDW-SD 45.6 36.0 - 50.0 fL 06/15/2022 8:19 AM [facility] RDW-CV 13.4 11.2 - 14.8 % 06/15/2022 8:19 AM [facility] Platelet Count 358 150 - 400 10? 3 /uL 06/15/2022 8:19 AM [facility] MPV 9.9 9.4 - 12.9 fL 06/15/2022 8:19 AM [facility] nRBC Absolute 0.00 0 10? 3 /uL 06/15/2022 8:19 AM [facility] nRBC Auto 0.0 0 /100 WBC 06/15/2022 8:19 AM [facility] Neutrophils % 65.2 35.0 - 70.0 % 06/15/2022 8:19 AM [facility] Lymphocytes % 26.3 20.0 - 43.0 % 06/15/2022 8:19 AM [facility] Monocytes % 6.1 5.0 - 13.0 % 06/15/2022 8:19 AM [facility] Eosinophils % 1.6 0.0 - 6.0 % 06/15/2022 8:19 AM [facility] Basophil % 0.5 0.0 - 2.0 % 06/15/2022 8:19 AM [facility] Neutrophils Absolute 6.27 1.60 - 7.00 10? 3 /uL 06/15/2022 8:19 AM [facility] Lymphocyte Absolute 2.53 1.10 - 3.90 10? 3 /uL 06/15/2022 8:19 AM [facility] Monocytes Absolute 0.59 0.26 - 1.07 10? 3 /uL 06/15/2022 8:19 AM [facility] Eosinophils Absolute 0.15 0.00 - 0.47 10? 3 /uL 06/15/2022 8:19 AM [facility] Basophils Absolute 0.05 0.00 - 0.08 10? 3 /uL 06/15/2022 8:19 AM [facility] Immature Granulocytes % 0.3 0.0 - 1.0 % 06/15/2022 8:19 AM [facility] Immature Granulocytes Absolute 0.03 06/15/2022 8:19 AM [facility] Blood BLOOD SPECIMEN / Unknown Lab Venipuncture / Unknown 06/15/2022 7:57 AM CDT 06/15/2022 8:12 AM CDT Jaden Thakur DO LAB - HEMATOLOGY ORDERABLES Performing Organization Address City/State/[facility] Co de Phone Number [facility] [address] [place] [address], [facility] [phone] * (ABNORMAL) COMPREHENSIVE METABOLIC PANEL (06/15/2022 7:57 AM CDT) BUN 12 7 - 26 mg/dL 06/15/2022 8:42 AM [facility] Creatinine 0.74 0.56 - 0.96 mg/dL 06/15/2022 8:42 AM [facility] Sodium 138 136 - 145 mmol/L 06/15/2022 8:42 AM [facility] Potassium 5.1(H) 3.5 - 4.5 mmol/L 06/15/2022 8:42 AM [facility] Chloride 107 98 - 107 mmol/L 06/15/2022 8:42 AM [facility] CO2 23 22 - 29 mmol/L 06/15/2022 8:42 AM [facility] Glucose 104 70 - 115 mg/dL 06/15/2022 8:42 AM [facility] Calcium 8.9 8.4 - 10.2 mg/dL 06/15/2022 8:42 AM [facility] Protein Total 7.5 6.0 - 8.3 g/dL 06/15/2022 8:42 AM [facility] Albumin 3.6 3.4 - 5.0 g/dL 06/15/2022 8:42 AM [facility] Bilirubin Total 0.1(L) 0.2 - 1.2 mg/dL 06/15/2022 8:42 AM [facility] Alkaline Phosphatase 44 40 - 150 U/L 06/15/2022 8:42 AM [facility] ALT 9 5 - 55 U/L 06/15/2022 8:42 AM [facility] AST 17 5 - 34 U/L 06/15/2022 8:42 AM [facility] Anion Gap 13 8 - 18 06/15/2022 8:42 AM [facility] BUN/Creatinine Ratio 16 7 - 23 06/15/2022 8:42 AM [facility] Osmolality Calculated 286 270 - 300 mOsm/kg 06/15/2022 8:42 AM [facility] Albumin/Globulin Ratio 0.9(L) 1.1 - 2.3 06/15/2022 8:42 AM [facility] eGFR by CKD-EPI >90 >=90 mL/min/1.7 3 m2 06/15/2022 8:42 AM [facility] Blood BLOOD SPECIMEN / Unknown Lab Venipuncture / Unknown 06/15/2022 7:57 AM CDT 06/15/2022 8:12 AM CDT Jaden Thakur DO LAB - CHEMISTRY ORDERABLES Performing Organization Address [facility] Co de Phone Number [facility] [address] [place] [address], [facility] [phone] * VITAMIN D (25-HYDROXY) (06/15/2022 7:57 AM CDT) Vitamin D, 25 Hydroxy 73.0 30.0 - 80.0 ng/mL 06/15/2022 9:00 AM CDT [facility] Comment: The recommendations for 25-Hydroxy Vitamin [...] Jaden Thakur DO LAB - CHEMISTRY ORDERABLES Performing Organization Address [facility] Co de Phone Number [facility] [address] [place] [address], [facility] [phone] * (ABNORMAL) LIPID PROFILE (06/15/2022 7:57 AM CDT) Cholesterol Total 204(H) <200 mg/dL 06/15/2022 8:42 AM [facility] HDL 37(L) >40 mg/dL 06/15/2022 8:42 AM [facility] Comment: ATP III Classification of HDL Cholesterol: ? <40 mg/dL: ??Considered a major risk factor. ? >60 mg/dL: ??Considered a negative risk factor. ? LDL Calculated 117(H) <100 mg/dL 06/15/2022 8:42 AM [facility] Comment: ATP III Classification of LDL Cholesterol: ?<100 mg/dL: ??Optimal ? 100 - 129 mg/dL: ??Near Optimal/Above Optimal ? 130 - 159 mg/dL: ??Borderline High ? 160 - 189 mg/dL: ??High ?>190 mg/dL: ??Very High ? Triglycerides 251(H) <150 mg/dL 06/15/2022 8:42 AM [facility] Comment: ATP III Classification of Triglycerides: ?<150 mg/dL: ??Normal ? 150 - 199 mg/dL: ??Borderline High ? 200 - 400 mg/dL: ??High ?>500 mg/dL: ??Very High Blood BLOOD SPECIMEN / Unknown Lab Venipuncture / Unknown 06/15/2022 7:57 AM CDT 06/15/2022 8:12 AM CDT Jaden Thakur DO LAB - CHEMISTRY ORDERABLES [facility] [address] [place] [address], [facility] [phone] * TSH REFLEX FREE T4 (06/15/2022 7:57 AM CDT) TSH 1.873 0.350 - 4.940 uIU/mL 06/15/2022 9:00 AM CDT [facility] Blood BLOOD SPECIMEN / Unknown Lab Venipuncture / Unknown 06/15/2022 7:57 AM CDT 06/15/2022 8:12 AM CDT Jaden Thakur DO LAB - CHEMISTRY ORDERABLES [facility] [address] [place] [address], [facility] [phone] documented in this encounter Visit Diagnoses Diagnosis Screening for lipoid disorders- Primary Screening for endocrine, metabolic and immunity disorder Vitamin D deficiency Encounter for preventive health examination Routine general medical examination at a health care facility documented in this encounter Care Teams Unhairing Inspector Relationship Specialty Start Date End Date Jean Joy MD PCP - OBGYN 12/27/07 Yvan Booth MD [address] [place] [phone] PCP - General 11/04/09 01/04/23 Jaden Thakur DO [address] [place] [id number] PCP - Attributed-[facility] STL 09/10/19 06/28/23 documented as of this encounter
--- OUTSIDE RECORDS SUMMARY | 2024-03-19 20:47 | XMS_ITS | Encounter Summary ---
Author Organization [facility] Address [address] [facility] [place] [address] Care Team Providers Care Crown Attacher Name Role Phone Jean Joy MD Unavailable [phone] Yvan Booth MD Primary Care Provider [phone] Jaden Thakur DO Unavailable [phone] Reason for Visit * Reason Comments Route Agent Routine Exam Encounter Details Date Type Department Care Team (Late st Contact Info) Description 01/10/2021 11:15 AM CDT Office Visit [facility] - REFINING ENGINEER [address] [facility] [address] [place] [address] [phone] Jean Joy MD [address] [facility] [place] [address] Pap smear, as part of routine gynecological examination (Primary Dx) Social History Tobacco Use Types [...] Sign Reading Time Taken Comments Blood Pressure 112/62 01/10/2021 11:17 AM CDT Pulse - - Temperature - - Respiratory Rate - - Oxygen Saturation - - Inhaled Oxygen Concentration - - Weight 80 kg (176 lb 6.4 oz) 01/10/2021 11:17 AM CDT Height 162.6 cm (5' 4 ) 01/10/2021 11:17 AM CDT Body Mass Index 30.28 01/10/2021 11:17 AM CDT documented in this encounter Functional [...] as of this encounter Progress Notes * Jean Joy MD - 01/10/2021 11:31 AM CDT Well Woman Yearly Exam (Premenopausal) HISTORY: Consuelo Darby is a 40 year old white female, Patient's last menstrual period was 04/30/2017 (approximate)., here for a Well Woman exam. Patient does not have other gynecological issues or concerns. Last Pap: normal Last mammogram:patient has never had a mammogram Menses: no menstrual cycles -cont OCPs Contraception: OCP (estrogen/progesterone) History Sexual Activity: Social History Substance and Sexual Activity Sexual Activity Yes ??? Partners: Male ??? control/protection: Pill Other pertinent ICT EDUCATOR history: none Other pertinent history: Medical, Surgical, Family, and Social History Reviewed. Allergies reviewed. Review of Systems Pertinent items are noted in HPI EXAMINATION BP 112/62 (BP SITE: LEFT ARM, BP POSITION: SITTING, BP CUFF SIZE: 11) Ht 5' 4 Wt 176 lb 6.4 oz BMI30.28 kg/m2 General Appearance: alert, cooperative, no distress Breasts: symmetric, nontender, no masses or discharge Heart: regular rhythm, normal S1 and S2, without murmurs, gallops or rubs Abdomen: Soft without mass, non-tender Pelvic: Vulva and vagina appear normal. Bimanual exam reveals normal uterus and adnexa. Discharge: normal and physiologic ASSESSMENT Normal Route Agent Exam Patient Active Problem List: GERD (gastroesophageal reflux disease) PLAN See orders, medications, patient instructions. Breast self exam reviewed, patient encouraged to perform monthly. Mammogram indications discussed. STD screening was not indicated. documented in this encounter Plan of Treatment Not on file documented as of this encounter Procedures Procedure Name Priority Date/Time Associated Diagnosis Comments PAP IG RFLX HPV HR ASCUS RFLX 16/18/45 Routine 01/10/2021 11:25 AM CDT Pap smear, as part of routine gynecological examination documented in this encounter Results * PAP IG RFLX HPV HR ASCUS RFLX 16/18/45 (01/10/2021 11:25 AM CDT) Diagnosis [facility] ACCOUNT BILL Comment: NEGATIVE FOR INTRAEPITHELIAL LESION OR MALIGNANCY. THIS SPECIMEN WAS RESCREENED PART OF OUR PRECISION STRUCTURAL METAL FITTER PROGRAM. Specimen Adequacy [facility] ACCOUNT BILL Comment: Satisfactory for evaluation. ??Endocervical and/or squamous metaplastic cells (endocervical component) are present. Clinician Provided ICD10 [facility] ACCOUNT BILL Comment:Z01.419 Performed by [facility] ACCOUNT BILL Comment:Shania Martinez, Cytot echnologist (ASCP) QC Reviewed by [facility] ACCOUNT BILL Comment:Marichuy Hooper, Cytot echnologist (ASCP) Comment . [facility] ACCOUNT BILL Note [...] y PART OF UTERINE CERVIX / Unknown 01/10/2021 11:25 AM CDT 01/11/2021 Narrative [facility] ACCOUNT BILL - 01/13/2021 11:10 AM CDT Source.............Cervix;Endocervix Other..............Oral Contraceptives No. of containers..01 ThinPrep Vial Resulting Agency Comment Lab Testing performed at: [facility] ??[facility] [id number] Jean Joy MD LAB - PATHOLOGY/CYTO LOGY ORDERABLES [facility] ACCOUNT BILL [address] [place] [address] documented in this encounter Visit Diagnoses Diagnosis Pap smear, as part of routine gynecological examination- Primary Screening for malignant neoplasm of the cervix documented in this encounter Care Teams Crown Attacher Relationship Specialty Start Date End Date Jean Joy MD PCP - OBGYN 12/27/07 Yvan Booth MD [address] [place] [address] PCP - General 11/04/09 01/04/23 Jaden Thakur DO [address] [place] [address] [id number] PCP - Attributed-[facility] E[facility] ST 09/10/19 06/28/23 documented as of this encounter
--- OUTSIDE RECORDS SUMMARY | 2024-03-19 20:47 | XMS_ITS | Encounter Summary ---
Author Organization [facility] Address [address] [facility] [place] [address] Care Team Providers Care Skiff Operator Name Role Phone Jean Joy MD Unavailable [phone] Yvan Booth MD Primary Care Provider [phone] Reason for Visit * Reason Comments Refill Request Encounter Details Date Type Department Care Team (Late st Contact Info) Description 10/16/2016 Refill [facility] - SHAG TRUCK DRIVER [address] [facility] [address] [place] [id number] Jean Joy MD [address] [facility] [place] [address] Refill Request Social History Tobacco [...] No 03/01/2016 documented as of this encounter Plan of Treatment Not on file documented as of this encounter Visit Diagnoses Not on filedocumented in this encounter Care Teams Skiff Operator Relationship Specialty Start Date End Date Jean Joy MD PCP - OBGYN 12/27/07 Yvan Booth MD [address] [place] [phone] PCP - General 11/04/09 01/04/23 documented as of this encounter
--- OUTSIDE RECORDS SUMMARY | 2024-03-19 20:47 | XMS_ITS | Encounter Summary ---
Author Organization [facility] Address [address] [facility] [place] [address] Care Team Providers Care Main Line Station Engineer Name Role Phone Jean Joy MD Unavailable [phone] Yvan Booth MD Primary Care Provider [phone] Reason for Visit * Reason Comments Skelp Processor Routine Exam Encounter Details Date Type Department Care Team (Late st Contact Info) Description 12/04/2018 9:45 AM CDT Office Visit [facility] Medical [facility] - CAREER TECHNOLOGY TEACHER [address] [place] [address] Jean Joy MD [address] [facility] [place] [address] Pap smear, as part of [...] Sign Reading Time Taken Comments Blood Pressure 140/80 12/04/2018 9:35 AM CDT Pulse - - Temperature - - Respiratory Rate - - Oxygen Saturation - - Inhaled Oxygen Concentration - - Weight 83.7 kg (184 lb 8 oz) 12/04/2018 9:35 AM CDT Height 162.6 cm (5' 4 ) 12/04/2018 9:35 AM CDT Body Mass Index 31.67 12/04/2018 9:35 AM CDT documented in this encounter Functional [...] of this encounter Progress Notes * Jean Jyo MD - 12/04/2018 9:51 AM CDT Well Woman Yearly Exam (Premenopausal) HISTORY: Consuelo Darby is a 38 year old white female, No LMP recorded. (Menstrual status: Continuous Control)., here for a Well Woman exam. Patient does not have other gynecological issues or concerns. Last Pap: normal Last mammogram:patient has never had a mammogram Menses: no menstrual cycles - cont OCP's Contraception: OCP (estrogen/progesterone) History Sexual Activity: Social History Substance and Sexual Activity Sexual Activity Yes ??? Partners: Male ??? control/protection: Pill Other pertinent CERTIFIED SURGICAL FIRST ASSISTANT history: none Other pertinent history: Medical, Surgical, Family, and Social History Reviewed. Allergies reviewed. Review of Systems Pertinent items are noted in HPI EXAMINATION BP 140/80 (BP SITE: RIGHT ARM, BP POSITION: SITTING, BP CUFF SIZE: 11) Ht 5' 4 Wt 184 lb 8 oz BMI 31.67 kg/m2 General Appearance: alert, cooperative, no distress Breasts: symmetric, nontender, no masses or discharge Heart: regular rhythm, normal S1 and S2, without murmurs, gallops or rubs Abdomen: Soft without mass, non-tender Pelvic: Vulva and vagina appear normal. Bimanual exam reveals normal uterus and adnexa. Discharge: normal and physiologic ASSESSMENT Normal Skelp Processor Exam Patient Active Problem List: GERD (gastroesophageal [...] RFLX HPV HR ASCUS RFLX 16/18/45 Routine 12/04/2018 9:40 AM CDT Pap smear, as part of routine gynecological examination documented in this encounter Results * PAP IG RFLX HPV HR ASCUS RFLX 16/18/45 (12/04/2018 9:40 AM CDT) Diagnosis [facility] ACCOUNT BILL Comment:NEGATIVE FOR INTRAEP ITHELIAL LESION OR MALIGNANCY. Specimen Adequacy [facility] ACCOUNT BILL Comment: Satisfactory for evaluation. ??Endocervical and/or squamous metaplastic cells (endocervical component) are present. Clinician Provided ICD10 [facility] ACCOUNT BILL Comment:Z01.419 Performed by [facility] ACCOUNT BILL Comment:Hernandez York totechnologist Comment . [facility] ACCOUNT BILL Note [facility] [...] y PART OF UTERINE CERVIX / Unknown 12/04/2018 9:40 AM CDT 12/04/2018 Narrative [facility] ACCOUNT BILL - 12/06/2018 5:07 PM CDT Source.............Cervix;Endocervix Other..............Oral Contraceptives No. of containers..01 ThinPrep Vial Resulting Agency Comment Lab Testing performed at: [facility] [address] [facility] ??[place] [id number] Jean Joy MD LAB - PATHOLOGY/CYTO LOGY ORDERABLES [facility] ACCOUNT BILL [address] [place] [address] documented in this encounter Visit Diagnoses Diagnosis Pap smear, as part of routine gynecological examination- Primary Screening for malignant neoplasm of the cervix documented in this encounter Care Teams Main Line Station Engineer Relationship Specialty Start Date End Date Jean Joy MD PCP - OBGYN 12/27/07 Yvan Booth MD [address] [place] [address] PCP - General 11/04/09 01/04/23 documented as of this encounter
--- OUTSIDE RECORDS SUMMARY | 2024-03-19 20:47 | XMS_ITS | Encounter Summary ---
Author Organization [facility] Address [address] [facility] [place] [address] Care Team Providers Care Rpg Programmer Name Role Phone Jean Joy MD Unavailable [phone] Yvan Booth MD Primary Care Provider [phone] Reason for Visit * Reason Comments Refill Request Encounter Details Date Type Department Care Team (Late st Contact Info) Description 09/05/2017 Refill [facility] - DECAL TRANSFERRER [address] [place] [address] Jean Joy MD [address] [place] [address] Refill Request Social History Tobacco [...] on filedocumented in this encounter Care Teams Rpg Programmer Relationship Specialty Start Date End Date Jean Joy MD PCP - OBGYN 12/27/07 Yvan Booth MD [address] [place] [address] PCP - General 11/04/09 01/04/23 documented as of this encounter
--- OUTSIDE RECORDS SUMMARY | 2024-03-19 20:47 | XMS_ITS | Encounter Summary ---
Author Organization [facility] Address [address] [facility] [place] [address] Care Team Providers Care Joint Cleaning Machine Operator Name Role Phone Jean Joy MD Unavailable [phone] Yvan Booth MD Primary Care Provider [phone] Jaden Thakur DO Unavailable [phone] Reason for Visit * Reason Comments PPD Skin Test Placement Encounter Details Date Type Department Care Team (Late st Contact Info) Description 10/13/2020 6:40 PM CDT Office Visit [facility] AT [address] [address] [facility] PPD screening test (Primary Dx) Social History Tobacco Use Types [...] Exposure Response Date Recorded In the last month, have you been in contact with someone who was confirmed or suspected to have Coronavirus / COVID-19? No / Unsure 10/15/2020 6:55 PM CDT documented as of this encounter Functional [...] as of this encounter Progress Notes * David Leggett APRN-CNP - 10/13/2020 6:48 PM CDT PPD Placement note Consuelo Darby, 39 year old female is here today for placement of PPD test Reason for PPD test: work Pt taken PPD test before: yes Verified in allergy area and with patient that they are not allergic to the products PPD is made of(Phenol or Tween). Yes Is patient taking any oral or IV steroid medication now or have they taken it in the last month? no Has the patient ever received the BCG vaccine?: no Has the patient been in recent contact with anyone known or suspected of having active TB disease?:no Date of exposure (if applicable): na Name of person they were exposed to (if applicable): na Patient's Country of origin?: [place] O: Alert and oriented in NAD. P: PPD placed on 10/13/2020. Patient advised to return for reading within 48-72 hours. Tb skin test result: negative. documented in this encounter Plan of Treatment Not on file documented as of this encounter Procedures Procedure Name Priority Date/Time Associated Diagnosis Comments SKIN TEST PPD - POINT OF CARE Routine 10/15/2020 7:11 PM CDT PPD screening test documented in this encounter Results * SKIN TEST PPD - POINT OF CARE (10/15/2020 7:11 PM CDT) PPD negative [facility] [place] Comment:no induration Other MISCELLANEOUS SAMPLE S / Unknown 10/15/2020 7:11 PM CDT Hernandez L Klostermann MANUAL WRITER-BUSINESS SERVICES REPRESENTATIVE LAB - POINT OF CARE ORDERABLES [facility] [address] [phone] documented in this encounter Visit Diagnoses Diagnosis PPD screening test- Primary Screening examination for pulmonary tuberculosis documented in this encounter Administered Medications Administered Medications Medication Order MAR Action Action Date Dose Rate Site PPD Intradermal Given 10/13/2020 0.1 mL Left Forearm documented in this encounter Care Teams Joint Cleaning Machine Operator Relationship Specialty Start Date End Date Jean Joy MD PCP - OBGYN 12/27/07 Yvan Booth MD [address] [place] [phone] PCP - General 11/04/09 01/04/23 Jaden Thakur DO [address] [place] [address] PCP - Attributed-WellFirst EHP STL 09/10/19 06/28/23 documented as of this encounter
--- OUTSIDE RECORDS SUMMARY | 2024-03-19 20:47 | XMS_ITS | Encounter Summary ---
Author Organization [facility] Address [address] [facility] [place] [address] Care Team Providers Care Upsetter Name Role Phone Jean Joy MD Unavailable [phone] Yvan Booth MD Primary Care Provider [phone] Jaden Thakur DO Unavailable [phone] Reason for Visit * Reason Onset Date Comments MEDICATION REFILL 01/31/2022 Encounter Details Date Type Department Care Team (Late st Contact Info) Description 01/31/2022 Refill [facility] - BUCKET OPERATOR [address] [place] [address], [address] [place] [address] Jean Joy MD [address] [place] [address] MEDICATION REFILL Social History Tobacco Use [...] encounter Miscellaneous Notes * Telephone Encounter - Barbara Alatorre - 01/31/2022 1:15 PM CST Patient is requesting refill on control. Has well woman scheduled on 02/08/22. Orders placed pending signature SOFTWARE ENGINEER documented in this encounter Plan of Treatment Not on file documented as of this encounter Visit Diagnoses Not on filedocumented in this encounter Care Teams Upsetter Relationship Specialty Start Date End Date Jean Joy MD PCP - OBGYN 12/27/07 Yvan Booth MD [address] [place] [address] PCP - General 11/04/09 01/04/23 Jaden Thakur DO [address] [place] [address] PCP - Attributed-WellFirst EHP STL 09/10/19 06/28/23 documented as of this encounter
--- OUTSIDE RECORDS SUMMARY | 2024-03-19 20:47 | XMS_ITS | Encounter Summary ---
Author Organization [facility] Address [address] [facility] [place] [address] Care Team Providers Care Supervisor Steel Division Name Role Phone Jean Joy MD Unavailable [phone] Yvan Booth MD Primary Care Provider Reason for Visit * Reason Onset Date Comments New Medication 08/21/2016 Encounter Details Date Type Department Care Team (Late st Contact Info) Description 08/21/2016 Telephone [facility] - SOFTWARE COMPUTER SPECIALIST [address] [place] [address] Jean Joy MD [address] [address] [place] [address] New Medication Social History Tobacco Use Types Packs/Day Years [...] No 03/01/2016 documented as of this encounter Miscellaneous Notes * Telephone Encounter - Barbara Alatorre - 08/21/2016 10:14 AM CDT Patient called and request new control. She is weaning baby and wants to start new pill. documented in this encounter Plan of Treatment Not on file documented as of this encounter Visit Diagnoses Not on filedocumented in this encounter Care Teams Supervisor Steel Division Relationship Specialty Start Date End Date Jean Joy MD PCP - OBGYN 12/27/07 Yvan Booth MD [address] [place] [address] PCP - General 11/04/09 01/04/23 documented as of this encounter
--- OUTSIDE RECORDS SUMMARY | 2024-03-19 20:47 | XMS_ITS | Encounter Summary ---
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 - MICA PASTER [address] [place] [address] Jean Joy MD [address] [facility] [place] [address] Routine gynecological examination (Primary Dx) Social History Tobacco [...] Sign Reading Time Taken Comments Blood Pressure 110/70 09/04/2016 9:51 AM CDT Pulse - - Temperature - - Respiratory Rate - - Oxygen Saturation - - Inhaled Oxygen Concentration - - Weight 78.2 kg (172 lb 8 oz) 09/04/2016 9:51 AM CDT Height 162.6 cm (5' 4 ) 09/04/2016 9:51 AM CDT Body Mass Index 29.61 09/04/2016 9:51 AM CDT documented in this encounter Functional [...] Progress Notes * Jean Joy MD - 09/04/2016 10:12 AM CDT Well Woman Yearly Exam (Premenopausal) HISTORY: Consuelo Darby is a 35 y.o. white female, No LMP recorded., here for a Well Woman exam. Patient does not have other gynecological issues or concerns. Last Pap: normal Last mammogram:patient has never had a mammogram Menses: no menstrual cycles for 18 months Contraception: OCP (estrogen/progesterone) History Sexual Activity: History Sexual Activity ??? Sexual activity: Yes ??? Partners: Male ??? 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 Allergies reviewed. Review of Systems Pertinent items are noted in HPI EXAMINATION BP 110/70 Ht 5' 4 Wt 172 lb 8 oz BMI 29.61 kg/m2 General Appearance: alert, cooperative, no distress Breasts: exam not performed Heart: regular rhythm, normal S1 and S2, without murmurs, gallops or rubs Abdomen: Soft without mass, non-tender Pelvic: Vulva and vagina appear normal. Bimanual exam reveals normal uterus and adnexa. Discharge: normal and physiologic ASSESSMENT Normal healthy female. Patient Active Problem List Diagnosis ??? GERD (gastroesophageal reflux disease) PLAN See orders, medications, patient instructions. Breast self exam reviewed, patient encouraged to perform monthly. Mammogram indications discussed. STD screening was not indicated. documented in this encounter Plan of Treatment Not on file documented as of this encounter Procedures Procedure Name Priority Date/Time Associated Diagnosis Comments PAP IG LB RFLX HPV HR ASCU RFLX 16,18 Routine 09/04/2016 9:56 AM CDT Routine gynecological examination documented in this encounter Results * PAP IG LB RFLX HPV HR ASCU RFLX 16,18 (09/04/2016 9:56 AM CDT) Diagnosis [facility] ACCOUNT BILL Comment:NEGATIVE FOR INTRAEP ITHELIAL LESION AND MALIGNANCY. Specimen Adequacy [facility] ACCOUNT BILL Comment: Satisfactory for evaluation. ??Endocervical and/or squamous metaplastic cells (endocervical component) are present. Clinician Provided ICD10 [facility] ACCOUNT BILL Comment:Z01.419 Performed by [facility] ACCOUNT BILL Comment:Shania Martinez, Cytot echnologist ([facility]) Comment . [facility] ACCOUNT BILL Note [facility] [...] . PART OF UTERINE CERVIX / Unknown 09/04/2016 9:56 AM CDT 09/05/2016 Narrative [facility] ACCOUNT BILL - 09/06/2016 3:17 PM CDT No. of containers..01 CYTYC Thin Prep Vial Resulting Agency Comment [facility] [place] [address] [facility] ??[place] [phone] Jean Joy MD LAB - PATHOLOGY/CYTO LOGY ORDERABLES [facility] ACCOUNT BILL [address] [place] [address] documented in this encounter Visit Diagnoses Diagnosis Routine gynecological examination- Primary documented in this encounter Care Teams Lab Systems Analyst Relationship Specialty Start Date End Date Jean Joy MD PCP - OBGYN 12/27/07 Yvan Booth MD [address] [place] [address] PCP - General 11/04/09 01/04/23 documented as of this encounter
--- OUTSIDE RECORDS SUMMARY | 2024-03-19 20:47 | XMS_ITS | Encounter Summary ---
Author Organization [facility] Address [address] [place] [address] Care Team Providers Care Head Machine Feeder Name Role Phone Jean Joy MD Unavailable [phone] Yvan Booth MD Primary Care Provider [phone] Reason for Visit * Reason Onset Date Comments Follow-up 02/19/2018 Encounter Details Date Type Department Care Team (Late st Contact Info) Description 02/19/2018 Telephone [facility] AT [address] [address] [facility] Social History Tobacco Use Types Packs/Day [...] on filedocumented in this encounter Care Teams Head Machine Feeder Relationship Specialty Start Date End Date Jean Joy MD PCP - OBGYN 12/27/07 Yvan Booth MD [address] [place] [address] PCP - General 11/04/09 01/04/23 documented as of this encounter
--- OUTSIDE RECORDS SUMMARY | 2024-03-19 20:47 | XMS_ITS | Encounter Summary ---
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 [place] [address] Pap smear, as part of [...] Sign Reading Time Taken Comments Blood Pressure 122/76 01/09/2020 10:50 AM CDT Pulse - - Temperature - - Respiratory Rate - - Oxygen Saturation - - Inhaled Oxygen Concentration - - Weight 86.5 kg (190 lb 9.6 oz) 01/09/2020 10:50 AM CDT Height 162.6 cm (5' 4 ) 01/09/2020 10:50 AM CDT Body Mass Index 32.72 01/09/2020 10:50 AM CDT documented in this encounter Functional [...] Progress Notes * Jean Joy MD - 01/09/2020 11:06 AM CDT Well Woman Yearly Exam (Premenopausal) HISTORY: Consuelo Darby is a 39 year old white female, Patient's last menstrual period was 04/30/2017 (approximate)., here for a Well Woman exam. Patient does not have other gynecological issues or concerns. Last Pap: normal Last mammogram:patient has never had a mammogram Menses: no menstrual cycles - cont OCPs Contraception: OCP (estrogen/progesterone) History Sexual Activity: Social History Substance and Sexual Activity Sexual Activity Yes ??? Partners: Male ??? control/protection: Pill Other pertinent RN HEMODIALYSIS history: none Other pertinent history: Medical, Surgical, Family, and Social History Reviewed. Allergies reviewed. Review of Systems Pertinent items are noted in HPI EXAMINATION BP 122/76 (BP SITE: RIGHT ARM, BP POSITION: SITTING, BP CUFF SIZE: 11) Ht 5' 4 Wt 190 lb 9.6 oz BMI 32.72 kg/m2 General Appearance: alert, cooperative, no distress Breasts: symmetric, nontender, no masses or discharge Heart: regular rhythm, normal S1 and S2, without murmurs, gallops or rubs Abdomen: Soft without mass, non-tender Pelvic: Vulva and vagina appear normal. Bimanual exam reveals normal uterus and adnexa. 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 Specimen Adequacy [facility] ACCOUNT BILL Comment:Satisfactory for anny luation. No endocervical component is identified. Clinician Provided ICD10 [facility] ACCOUNT BILL Comment:Z01.419 Performed by [facility] ACCOUNT BILL Comment:Yared Lawrence, Cyto technologist ([facility]) Comment . [facility] ACCOUNT BILL Note [...] y PART OF UTERINE CERVIX / Unknown 01/09/2020 10:55 AM CDT 01/12/2020 Narrative [facility] ACCOUNT BILL - 01/14/2020 11:09 AM NOODLE PRESS OPERATOR Source.............Cervix;Endocervix Other..............Oral Contraceptives No. of containers..01 ThinPrep Vial Resulting Agency Comment Lab Testing performed at: [facility] [place] [address] [facility] ??[place] [phone] Jean Joy MD LAB - PATHOLOGY/CYTO LOGY ORDERABLES [facility] ACCOUNT BILL [address] [place] [address] documented in this encounter Visit Diagnoses Diagnosis Pap smear, as part of routine gynecological examination- Primary Screening for malignant neoplasm of the cervix documented in this encounter Care Teams Skilled Nursing Facilities Professional Relationship Specialty Start Date End Date Jean Joy MD PCP - OBGYN 12/27/07 Yvan Booth MD [address] [place] [address] PCP - General 11/04/09 01/04/23 Jaden Thakur DO [address] [place] [address] PCP - Attributed-WellFirst EHP STL 09/10/19 06/28/23 documented as of this encounter
--- OUTSIDE RECORDS SUMMARY | 2024-03-19 20:47 | XMS_ITS | Encounter Summary ---
Author Organization [facility] Address [address] [place] [address] Care Team Providers Care Orchard Pruner Name Role Phone Jean Joy MD Unavailable [phone] Yvan Booht MD Primary Care Provider [phone] Reason for Visit * Reason Comments Vaginal Problem Encounter Details Date Type Department Care Team (Late st Contact Info) Description 05/17/2017 12:40 PM SUPERVISOR MOLD YARD Video Visit [facility] - [facility] Health [address] [place] [address] Provider, [facility] [address] [place] [address] Candidal vulvovaginitis Social History Tobacco Use Types Packs/Day Years [...] this encounter Patient Instructions * Patient Instructions* lópezConsuelo, RAILROAD OPERATING ENGINEER-QUARANTINE OFFICER - 05/17/2017 12:40 PM SUPERVISOR MOLD YARD Follow up urgent care or PCP if no improvement in 48 hours or any worsening of symptoms. Yeast Infection STAFF MIDWIFE/APPRENTICESHIP DIRECTOR: A yeast infection , or vulvovaginal candidiasis, is a common vaginal infection. Vulvovaginal candidiasis is caused by a fungus, or yeast-like germ. Fungi are normally found in your vagina. Too many fungi can cause an infection. Contact your healthcare provider if: ?? You have fever and chills. ?? You develop abdominal or pelvic pain. ?? Your discharge is bloody and it is not your monthly period. ?? Your signs and symptoms get worse, even after treatment. ?? You have questions or concerns about your condition or care. Signs and symptoms: ?? Thick, white, cheese-like discharge from your vagina ?? Itching, swelling, and redness in your vagina ?? Burning when you urinate Treatment for a yeast infection includes medicines to treat the fungal infection and decrease inflammation. The medicine may be a pill, cream, ointment, or vaginal tablet or suppository. Keep your vagina healthy: ?? Do not have sex until your symptoms go away. Have your partner wear a condom until you complete your course of medication. ?? Always wipe from front to back after you use the toilet. This prevents spreading bacteria from your rectal area into your vagina. ?? Clean in and around your vagina with mild soap and warm water each day. Gently dry the area after washing. Do not use hot tubs. The heat and moisture from hot tubs can increase your risk for another yeast infection. ?? Do not wear tight-fitting clothes or undergarments for long periods. Wear cotton underwear during the day. Cotton helps keep your genital area dry and does not hold in warmth or moisture. Do not wear underwear at night. ?? Change your laundry soap or fabric softener if you think it is irritating your skin. ?? Do not douche or use feminine hygiene sprays or bubble bath. Do not use pads or tampons that arescented, or colored or perfumed toilet paper. ?? Ask your healthcare provider about control options if necessary. Condoms have latex and diaphragms have gel that kills sperm. Both of these may irritate your genital area. Follow up with your healthcare provider as directed: Write down your questions so you remember to ask them during your visits. ?? 2017 [employer] Information is for End User's use only and may not be sold, redistributed or otherwise used for commercial purposes. All illustrations and images included in CareNotes?? are the copyrighted property of [employer]. or [employer]. The above information is an educational advisor only. It is not intended as medical advice for individual conditions or treatments. Talk to your doctor, nurse or pharmacist before following any medical regimen to see if it is safe and effective for you. RVISOR MOLD YARD documented in this encounter Progress Notes * Consuelo Thomas APRN-CNP - 05/17/2017 12:28 PM CST [facility] Video visit Legend: Scores, Non-relevant Questions Video Visit Acute Conditions Questionnaire [facility] Question 05/17/2017 7:08 AM SUPERVISOR MOLD YARD Please enter in a contact phone number that you can be reached at during the Video Visit appointment? [phone] Please select the following Reason for Visit? Skin Rash How long have you had symptoms? One week Where on your body is the rash? Other Have you been exposed to a new medication, soap, or other substance? No Have you had this rash before? Yes Are you having itching? Yes Are you having pain? Yes Have you been exposed to someone else who is sick? No Chief Complaint Patient presents with ??? Vaginal Problem SUBJECTIVE: HPI Comments: 36 y/o female c/o vaginal itching, thick white discharge for 7 days. Tried monistat-1and 3 day and ineffective. Pt treated for sinusitis with augmentin 10 days ago. Pt gets frequent yeast infections after antibiotics and has had diflucan before. Denies fever, abdominal pain. Pt sinus pressure and congestion significantly improved. Past Medical History: Diagnosis Date ??? Abdominal [...] 10 mg by mouth once daily ??? amoxicillin-clavulanate (AUGMENTIN) 875-125 MG tablet Take 1 tablet by mouth 2 times daily withmorning and evening meal for 10 days (Patient not taking: Reported on 05/17/2017) 20 tablet 0 No current facility-administered medications on file prior to visit. Past Surgical History: Procedure Laterality Date ??? Section ??? Section 03/01/2016 SECTION REPEAT ??? Cholecystectomy ??? Cholecystectomy, Laparoscopic 02/22/2012 N/A; LAPAROSCOPIC CHOLECYSTECTOMY SINGLE INCISION ??? COLONOSCOPY Social History Social History ??? Marital status: Spouse name: N/A ??? Number of children: N/A ??? 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 fluconazole (DIFLUCAN) 150 MG tablet Take 1 tablet by mouth once for 1 dose May repeat in 1 week if needed 2 tablet 0 ??? AVIANE 0.1-20 MG-MCG tablet TAKE 1 TABLET BY MOUTH ONCE DAILY 28 Tab 11 ??? raNITIdine (ZANTAC) 150 MG tablet Take 150 mg by mouth as needed ??? Cetirizine HCl (ZYRTEC PO) Take 10 mg by mouth once daily ??? amoxicillin-clavulanate (AUGMENTIN) 875-125 MG tablet Take 1 tablet by mouth 2 times daily withmorning and evening meal for 10 days (Patient not taking: Reported on 05/17/2017) 20 tablet 0 No current facility-administered medications for this visit. Allergies Allergen Reactions ??? 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 Gastrointestinal: Negative for abdominal pain, diarrhea, nausea and vomiting. Skin: White vaginal discharge with itching OBJECTIVE: General appearance: alert, well appearing, and in no distress. There were no vitals taken for this visit. Physical Exam Abdominal: There is no tenderness. ASSESSMENT: No results found for this visit on 05/17/17. Encounter Diagnosis Name Primary? Candidal vulvovaginitis Yes PLAN: Orders Placed This Encounter ??? fluconazole (DIFLUCAN) 150 MG tablet Sig: Take 1 tablet by mouth once for 1 dose May repeat in 1 week if needed Dispense: 2 tablet Refill: 0 Follow up urgent care or PCP if no improvement in 48 hours or any worsening of symptoms. RVISOR MOLD YARD documented in this encounter Plan of Treatment Not on file documented as of this encounter Visit Diagnoses Diagnosis Candidal vulvovaginitis- Primary Candidiasis of vulva and vagina documented in this encounter Care Teams Orchard Pruner Relationship Specialty Start Date End Date Jean Joy MD PCP - OBGYN 12/27/07 Yvan Booth MD [address] [place] [id number] PCP - General 11/04/09 01/04/23 documented as of this encounter
--- OUTSIDE RECORDS SUMMARY | 2024-03-19 20:47 | XMS_ITS | Encounter Summary ---
Author Organization [facility] Address [address] [place] [address] Care Team Providers Care Headlight Adjuster Name Role Phone Jean Joy MD Unavailable [phone] Yvan Booth MD Primary Care Provider [phone] Jaden Thakur DO Unavailable [phone] Encounter Details Date Type Department Care Team (Late st Contact Info) Description 11/03/[address] [facility] [address] [address] Oksana Boothe, GLOVE CUTTER-PEDIATRIC ASSISTANT [address] [place] [address] Exposure to SARS-associated coronavirus ; Immunity status testing Social History Tobacco Use Types Packs/Day Years [...] Procedure Name Priority Date/Time Associated Diagnosis Comments SARS-COV-2 (COVID-19) ANTIBODY IGG [facility] Routine 11/06/2019 9:39 AM CDT Immunity status testing DIASORIN SARS-COV-2 AB IGG REFLEXED Routine 11/06/2019 9:39 AM CDT Immunity status testing documented in this encounter Results * DIASORIN SARS-COV-2 AB IGG REFLEXED (11/06/2019 9:39 AM CDT) DiaSorin SARS-CoV-2 Antibody IgG Negative Negative [facility] INSURANCE BILL Comment: This sample does not [...] FASTING 11/06/2019 9:39 AM CDT 11/06/2019 Narrative [facility] INSURANCE BILL - 11/07/2019 7:09 AM CDT Test(s) [id number] Antibody, IgG; [id number]- DiaSorin SARS-CoV-2 Ab, IgG has not been [...] Resulting Agency Comment [facility]: [facility] [address] ??[facility] [id number] Oksana Boothe GLOVE CUTTER-PEDIATRIC ASSISTANT LAB - CHEMISTRY O RDERABLES Performing Organization Address [facility] de Phone Number [facility] INSURANCE BILL [address] [place] [address] * SARS-COV-2 (COVID-19) ANTIBODY IGG [facility] (11/06/2019 9:39 AM CDT) SARS COV 2 AB (IGG) Negative [facility] INSURANCE BILL Comment: See DiaSorin SARS-CoV-2 Ab, IgG FASTING Blood BLOOD SPECIMEN / Unknown 11/06/2019 9:39 AM CDT 11/06/2019 Narrative [facility] INSURANCE BILL - 11/07/2019 7:09 AM CDT Test(s) [id number] Antibody, IgG; [id number]- DiaSorin SARS-CoV-2 Ab, IgG has not been [...] Resulting Agency Comment [facility] performed at: [facility] [address] ??[facility] [id number] Oksana Toi Tl GLOVE CUTTER-PEDIATRIC ASSISTANT LAB - CHEMISTRY O RDERABLES Performing Organization Address [facility] Co de Phone Number [facility] INSURANCE BILL [address] [place] [address] documented in this encounter Visit Diagnoses Diagnosis Exposure to SARS-associated coronavirus- Primary Immunity status testing Antibody response examination documented in this encounter Care Teams Headlight Adjuster Relationship Specialty Start Date End Date Jean Joy MD PCP - OBGYN 12/27/07 Yvan Booth MD [address] [place] [phone] PCP - General 11/04/09 01/04/23 Jaden Thakur DO [address] [place] [address] PCP - Attributed-[facility] STL 09/10/19 06/28/23 documented as of this encounter
--- OUTSIDE RECORDS SUMMARY | 2024-03-19 20:47 | XMS_ITS | Encounter Summary ---
Author Organization [facility] Address [address] [facility] [address] Care Team Providers Care Patient Portal Concierge Name Role Phone Jean Joy MD Unavailable [phone] Yvan Booth MD Primary Care Provider [phone] Jaden Thakur DO Unavailable [phone] Encounter Details Date Type Department Care Team (Late st Contact Info) Description 07/08/2021 Orders Only [facility] - GI [address], [address] [place] [address] Sathya Foster MD [address] [place] [address] Social History Tobacco Use Types Packs/Day Years [...] this encounter Patient Instructions * Patient Instructions* Denise Madrigal MA - 07/08/2021 11:58 AM CDT MIRALAX-DULCOLAX PREP Please register at 8:30 am for your procedure, which is scheduled at 10:00 am, on 08/25/2021. PLEASE REPORT TO: [place] [address] (at the intersection of [address] [address] and [facility]. Follow the signs to the Procedure Center, around the back to [address].) Items to purchase: A 238 gram bottle of Miralax and a small box of Dulcolax, containing at least 1 tablet. (Store brand of both is acceptable) Please follow the instructions completely. A poor prep may result in the need for a repeat colonoscopy, which may not be covered by your insurance. Medication Restrictions: IF YOU ARE TAKING ANY MEDICATIONS TO THIN YOUR BLOOD, for example--Coumadin, Aspirin, Warfarin, Aleve, Naprosyn, Advil, Ibuprofen, Excedrin, Aggrenox, Plavix, Persantine, Dipyridamole, etc. Please speak with the physician that prescribed. We recommend that you stop your blood thinner 3-5 days priorto your procedure, WITH THE APPROVAL OF YOUR ORDERING PHYSICIAN. Prescription or Over the Counter Iron: Please stop taking this 7 days prior to your procedure. 1.) TWO DAYS PRIOR TO YOUR PROCEDURE: Eat a soft diet that is LOW in Fiber. Avoid seeds, nuts, and fibrous vegetables like cabbage, broccoli, brussel sprouts, and kale. 2.) ON THE DAY BEFORE YOUR PROCEDURE: HAVE CLEAR LIQUIDS ONLY. NO SOLID FOODS! Drink as much clear liquid as you can to prevent dehydration. It will keep you from feeling hungry and help your colon prep be as effective as possible. You may have liquids such as bouillion (beef, chicken, veggie broth), black coffee or tea, fruit juices without pulp, clear soda, water, Jell-O, and popsicles (NOTHING RED OR PURPLE). At 12pm, start your liquid preparation: Mix the entire 238gm. bottle of Miralax (Polyethylene Glycol) with the 64 oz. Gatorade in a pitcher. Please use Crystal Light if you are diabetic Mix the solution until all is dissolved. Drink an 8 oz. glass every 15-20 minutes until the solution is gone. Drinking through a straw may make this more palatable as the liquid will bypass your taste buds. One hour after you have completed your Miralax mixture, take 1 tablet of Dulcolax (Bisacodyl). You may feel a little nauseous and bloated at first, but once you start having bowel movements, this feeling will pass. You may continue to have clear liquids until midnight. PLEASE HAVE NOTHING AFTER MIDNIGHT (no ice, gum, candy, mints, etc.), except for important medications such as blood pressure, heart or seizure medications, which can be taken with a small sip of water the morning of your procedure. 3.) THE DAY OF YOUR PROCEDURE: Arrive at your scheduled appointment time. HAVE A FRIEND OR FAMILY MEMBER DRIVE YOU TO YOUR PROCEDURE (no public transportation) as you will be sedated and unable to drive yourself home. You will not be able to drive or work the remainder of the day. Due to the current pandemic, current visitor policies will be discussed during your pre-miguel a stration call and are subject to change. Bring your insurance card, photo ID and a complete list of your current medications and supplementswith dosage and administration. Questions or concerns? Office phone: [phone]. Thank you very much for allowing us to participate in meeting your healthcare needs. documented in this encounter Progress Notes * Denise Madrigal MA - 07/08/2021 11:58 AM CDT Screening colonoscopy scheduled for 08/25/2021. Instructions sent via [employer] ([employer]) documented in this encounter Plan of Treatment Not on file documented as of this encounter Visit Diagnoses Not on filedocumented in this encounter Care Teams Patient Portal Concierge Relationship Specialty Start Date End Date Jean Joy MD PCP - OBGYN 12/27/07 Yvan Booth MD [address] [place] [id number] PCP - General 11/04/09 01/04/23 Jaden Thakur DO [address] [place] [address] PCP - Attributed-[facility] EHP STL 09/10/19 06/28/23 documented as of this encounter
--- OUTSIDE RECORDS SUMMARY | 2024-03-19 20:47 | XMS_ITS | Encounter Summary ---
Author Organization [facility] Address [address] [place] [address] Care Team Providers Care Applied Exercise Physiologist Name Role Phone Jean Joy MD Unavailable [phone] Yvan Booth MD Primary Care Provider [phone] Reason for Visit * Reason Comments Sinus Problem Encounter Details Date Type Department Care Team (Late st Contact Info) Description 11/22/2017 10:00 AM CDT Video Visit [facility] [address] [place] [address] Provider, [facility] [address] [place] [address] Acute bacterial rhinosinusitis Social History Tobacco Use Types Packs/Day Years [...] encounter Patient Instructions * Patient Instructions* lópezConsuelo, AMANDA-UTILITY CLERK - 11/22/2017 10:09 AM CDT Finish all antibiotics per instructions, take with food and take a lactobacillus probiotic or yogurt with lives active cultures (activia) daily. Take lactobacillus products at least 2 hours before orafter antibiotics. Antibiotics kill the good and bad bacteria. This keeps the good bacteria in your body and prevents side effects like yeast infections and diarrhea. -Make sure you are getting adequate rest and increase your fluid intake while you are recovering -Sleep with head of bed raised to promote drainage For stuffy or clogged nose: Sudafed (pseudoephedrine) per package instructions sold at the pharmacycounty in [place] or [place]. This is a decongestant. It can make you jittery and have troublesleeping. Avoid these symptoms by taking during the day. For dry cough: Delsym (dextromethorphan) per package instructions. This is a cough suppressant. For sinus pressure, post nasal drip, stuffy or clogged nose: Sinus irrigation per package directions with distilled water or boil water and let it cool. If unable to do sinus irrigation you may use saline nasal spray 2-4 times daily as needed For fever and/or pain: Advil (ibuprofen) 600 mg=3 tablets three times daily with food or Tylenol (acetaminophen) 1,000 mg= 2 extra strength tablets every 4 hours as needed for 3-5 days. Good handwashing, cleaning surfaces at home and work, and covering your mouth when coughing are important. It is best to cough in your sleeve or a tissue instead of your hand. If you are not improving or worsening in the next 3-5 days you must RETURN to the clinic, go to your PCP, or Urgent Care/ER to be SEEN and reevaluated. No further prescriptions or refills will be given by phone without another evaluation. If you develop a high fever 103+, neck stiffness, trouble breathing, chest pain, or other life threatening symptoms GO TO THE ER IMMEDIATELY. ?? Rhinosinusitis TECHNICAL SALES SUPPORT SPECIALIST: Rhinosinusitis (RS) is inflammation of your nose and sinuses. It commonly begins as a virus, often as a common cold. Viruses usually last 7 to 10 days and do not need treatment. When the virus does not get better on its own, you may have bacterial RS. This means that bacteria have begun to grow inside your sinuses. Acute RS lasts less than 4 weeks. Chronic RS lasts 12 weeks or more. Recurrent RS is when you have 4 or more episodes of RS in one year. Your signs and symptoms may be worse when you lie on your back or try to sleep. You may have any ofthe following: ?? Stuffy nose and reduced sense of smell ?? Runny nose with thick yellow or green mucus ?? Pressure or pain on your face or a headache ?? Pain in your teeth or bad breath ?? Ear pain or pressure ?? Fever or cough ?? Tiredness Seek care immediately if: ?? You have double vision or you cannot see. ?? You have a stiff neck, a fever, or a bad headache. ?? Your eyeball bulges out or you cannot move your eye. ?? Your eye and eyelid are red, swollen, and painful. ?? You cannot open your eye. ?? You are more sleepy than normal, or you notice changes in your ability to think, move, or talk. ?? You have swelling of your forehead or scalp. Contact your healthcare provider if: ?? Your symptoms are worse or do not improve after 3 to 5 days of treatment. ?? You have questions or concerns about your condition or care. Treatment for rhinosinusitis may include any of the following: ?? Acetaminophen decreases pain and fever. It is available without a doctor's order. Ask how much to take and how often to take it. Follow directions. Acetaminophen can cause liver damage if not taken correctly. ?? NSAIDs , such as ibuprofen, help decrease swelling, pain, and fever. This medicine is available with or without a doctor's order. NSAIDs can cause stomach bleeding or kidney problems in certain people. If you take blood thinner medicine, always ask your healthcare provider if NSAIDs are safe foryou. Always read the medicine label and follow directions. ?? Nasal steroid sprays decrease inflammation in your nose and sinuses. ?? Decongestants reduce swelling and drain mucus in the nose and sinuses. They may help you breatheeasier. ?? Antihistamines dry mucus in the nose and relieve sneezing. ?? Antibiotics treat a bacterial infection and may be needed if your symptoms do not improve or they get worse. ?? Take your medicine as directed. Contact your healthcare provider if you think your medicine is not helping or if you have side effects. Tell him or her if you are allergic to any medicine. Keep a list of the medicines, vitamins, and herbs you take. Include the amounts, and when and why you take them. Bring the list or the pill bottles to follow-up visits. Carry your medicine list with you in case of an emergency. Self-care: ?? Rinse your sinuses. Use a sinus rinse device to rinse your nasal passages with a saline (salt water) solution. This will help thin the mucus in your nose and rinse away pollen and dirt. It will also help reduce swelling so you can breathe normally. Ask your healthcare provider how often to do this. ?? Breathe in steam. Heat a bowl of water until you see steam. Lean over the bowl and make a tent over your head with a large towel. Breathe deeply for about 20 minutes. Be careful not to get too close to the steam or burn yourself. Do this 3 times a day. You can also breathe deeply when you take ahot shower. ?? Sleep with your head elevated. Place an extra pillow under your head before you go to sleep to help your sinuses drain. ?? Drink liquids as directed. Ask your healthcare provider how much liquid to drink each day and which liquids are best for you. Liquids will thin the mucus in your nose and help it drain. Avoid drinks that contain alcohol or caffeine. ?? Do not smoke, and avoid secondhand smoke. Nicotine and other chemicals in cigarettes and cigars can make your symptoms worse. Ask your healthcare provider for information if you currently smoke and need help to quit. E-cigarettes or smokeless tobacco still contain nicotine. Talk to your healthcare provider before you use these products. Follow up with your healthcare provider as directed: Follow up if your symptoms are worse or not better after 3 to 5 days of treatment. Write down your questions so you remember to ask them during your visits. ?? 2017 [employer] Information is for End User's use only and may not be sold, redistributed or otherwise used for commercial purposes. All illustrations and images included in CareNotes?? are the copyrighted property of [employer] or [employer]. The above information is an medicaid service coordinator only. It is not intended as medical advice for individual conditions or treatments. Talk to your doctor, nurse or pharmacist before following any medical regimen to see if it is safe and effective for you. documented in this encounter Progress Notes * Consuelo Thomas APRN-CNP - 11/22/2017 10:06 AM CDT [facility] Video visit Legend: Scores, Non-relevant Questions Video Visit Acute Conditions Questionnaire [facility] Question 11/22/2017 7:27 AM CDT Please enter in a contact phone number that you can be reached at during the Video Visit appointment? [phone] Please select the following Reason for Visit? Cold/Cough/Flu Do you have a fever? Yes, i have a high fever (101 degrees or more) Do you feel fatigued? Yes Did your symptoms come on abruptly? No Do you have muscle soreness/pain? Yes Have you had a known contact/exposure to someone with the flu (influenza)? No How long have you had your Cold/Cough symptoms? For one to four weeks What symptoms have you been experiencing? Cough Blocked sinues Headache Mucus Fever Chief Complaint Patient presents with ??? Sinus Problem SUBJECTIVE: HPI Comments: 37 y/o female c/o sinus pain, nasal congestion with green/yellow nasal drainage, productive cough with yellow sputum for 8 days. The last 2 days she is worse and had fever tmax 102. Tried tylenol, motrin, dayquil that helps a little. She is at work and miserable. Denies gi symptoms. Works at [employer]. She frequently gets yeast infections with antibiotics and requesting diflucan. Past Medical History: Diagnosis Date ??? Abdominal pain, right upper quadrant ??? GERD (gastroesophageal reflux disease) ??? History of hypertension gestational hypertension Current Outpatient Prescriptions on File Prior to Visit Medication Sig Dispense Refill ??? levonorgestrel-ethinyl estradiol (LESSINA-28) 0.1-20 MG-MCG tablet Take 1 tablet by mouth once daily continuously Reasons: Control Treatment 3 packet 4 ??? raNITIdine (ZANTAC) 150 MG tablet Take [...] Outpatient Prescriptions Medication Sig Dispense Refill ??? amoxicillin-clavulanate (AUGMENTIN) 875-125 MG tablet Take 1 tablet by mouth 2 times daily withmorning and evening meal for 7 days 14 tablet 0 ??? fluconazole (DIFLUCAN) 150 MG tablet Take 1 tablet by mouth once for 1 dose 1 tablet 0 ??? levonorgestrel-ethinyl estradiol (LESSINA-28) 0.1-20 MG-MCG tablet Take 1 tablet by mouth once daily continuously Reasons: Control Treatment 3 packet 4 ??? raNITIdine (ZANTAC) 150 MG tablet Take [...] REVIEW OF SYSTEMS: Review of Systems Constitutional: Positive for chills, fever and malaise/fatigue. HENT: Positive for congestion and sinus pain. Negative for ear pain and sore throat. Respiratory: Positive for cough and sputum production. Negative for hemoptysis, shortness of breathand wheezing. Cardiovascular: Negative for chest pain. Gastrointestinal: Negative for abdominal pain, diarrhea, nausea and vomiting. Musculoskeletal: Positive for myalgias. OBJECTIVE: General appearance: alert, well appearing, and in no distress. There were no vitals taken for this visit. Physical Exam Constitutional: She is well-developed, well-nourished, and in no distress. HENT: Head: Normocephalic. Mouth/Throat: Uvula is midline and mucous membranes are normal. Posterior oropharyngeal erythema present. No oropharyngeal exudate, posterior oropharyngeal edema or tonsillar abscesses. Lymphadenopathy: She has no cervical adenopathy. Per patient ASSESSMENT: No results found for this visit on 11/22/17. Encounter Diagnosis Name Primary? Acute bacterial rhinosinusitis Yes PLAN: Orders Placed This Encounter ??? amoxicillin-clavulanate (AUGMENTIN) 875-125 MG tablet Sig: Take 1 tablet by mouth 2 times daily with morning and evening meal for 7 days Dispense: 14 tablet Refill: 0 ??? fluconazole (DIFLUCAN) 150 MG tablet Sig: Take 1 tablet by mouth once for 1 dose Dispense: 1 tablet Refill: 0 Finish all antibiotics per instructions, take with food and take a lactobacillus probiotic or yogurt with lives active cultures (activia) daily. Take lactobacillus products at least 2 hours before orafter antibiotics. Antibiotics kill the good and bad bacteria. This keeps the good bacteria in your body and prevents side effects like yeast infections and diarrhea. -Make sure you are getting adequate rest and increase your fluid intake while you are recovering -Sleep with head of bed raised to promote drainage For stuffy or clogged nose: Sudafed (pseudoephedrine) per package instructions sold at the pharmacycounty in [place] or [place]. This is a decongestant. It can make you jittery and have troublesleeping. Avoid these symptoms by taking during the day. For dry cough: Delsym (dextromethorphan) per package instructions. This is a cough suppressant. For sinus pressure, post nasal drip, stuffy or clogged nose: Sinus irrigation per package directions with distilled water or boil water and let it cool. If unable to do sinus irrigation you may use saline nasal spray 2-4 times daily as needed For fever and/or pain: Advil (ibuprofen) 600 mg=3 tablets three times daily with food or Tylenol (acetaminophen) 1,000 mg= 2 extra strength tablets every 4 hours as needed for 3-5 days. Good handwashing, cleaning surfaces at home and work, and covering your mouth when coughing are important. It is best to cough in your sleeve or a tissue instead of your hand. If you are not improving or worsening in the next 3-5 days you must RETURN to the clinic, go to your PCP, or Urgent Care/ER to be SEEN and reevaluated. No further prescriptions or refills will be given by phone without another evaluation. If you develop a high fever 103+, neck stiffness, trouble breathing, chest pain, or other life threatening symptoms GO TO THE ER IMMEDIATELY. documented in this encounter Plan of Treatment Not on file documented as of this encounter Visit Diagnoses Diagnosis Acute bacterial rhinosinusitis- Primary documented in this encounter Care Teams Applied Exercise Physiologist Relationship Specialty Start Date End Date Jean Joy MD PCP - OBGYN 12/27/07 Yvan Booth MD [address] [place] [id number] PCP - General 11/04/09 01/04/23 documented as of this encounter
--- OUTSIDE RECORDS SUMMARY | 2024-03-19 20:47 | XMS_ITS | Encounter Summary ---
Author Organization [facility] Address [address] [place] [address] Care Team Providers Care Whiskey Regauger Name Role Phone Jean Joy MD Unavailable [phone] Yvan Booth MD Primary Care Provider [phone] Jaden Thakur DO Unavailable [phone] Encounter Details Date Type Department Care Team (Latest Contact Info) Description 05/01/2022 3:07 PM SHUT OFF WORKER - 05/01/2022 11:59 PM SHUT OFF WORKER Hospital Encounter [facility] Pediatrics - Lab [facility] [place] [address] Discharge Disposition: Home or Self Care Social [...] suspected to have Coronavirus/COVID-19? No / Unsure 05/01/2022 3:06 PM SHUT OFF WORKER documented as of this encounter Functional Status [...] on filedocumented in this encounter Care Teams Whiskey Regauger Relationship Specialty Start Date End Date Jean Joy MD PCP - OBGYN 12/27/07 Yvan Booth MD [address] [place] [id number] PCP - General 11/04/09 01/04/23 Jaden Thakur DO [address] [place] [id number] PCP - Attributed-[facility] 09/10/19 06/28/23 documented as of this encounter
--- OUTSIDE RECORDS SUMMARY | 2024-03-19 20:47 | XMS_ITS | Encounter Summary ---
Author Organization 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 Medical [facility] - CONCRETE FOREMAN [address] [place] [address] Jean Joy MD [address] [place] [address] Pap smear, as part of [...] Sign Reading Time Taken Comments Blood Pressure 110/72 10/09/2017 9:30 AM CDT Pulse - - Temperature - - Respiratory Rate - - Oxygen Saturation - - Inhaled Oxygen Concentration - - Weight 79.1 kg (174 lb 6.4 oz) 10/09/2017 9:30 A M CDT Height 162.6 cm (5' 4 ) 10/09/2017 9:30 AM CDT Body Mass Index 29.94 10/09/2017 9:30 AM CDT documented in this encounter Functional [...] Progress Notes * Jean Joy MD - 10/09/2017 9:43 AM CDT Well Woman Yearly Exam (Premenopausal) HISTORY: Consuelo Darby is a 36 y.o. white female, No LMP recorded. Patient is not currently having periods (Reason: Continuous Control)., here for a Well Woman exam. Migraines much better on continuous OCP's Patient does not have other gynecological issues or concerns. Last Pap: normal Last mammogram:patient has never had a mammogram Menses: cont OCP's Contraception: OCP (estrogen/progesterone) History Sexual Activity: History Sexual Activity ??? Sexual activity: Yes ??? Partners: Male ??? control/ protection: Pill Other pertinent OUTSIDE RIGGER history: none Other pertinent history: Medical, Surgical, Family, and Social History Reviewed. Allergies reviewed. Review of Systems Pertinent items are noted in HPI EXAMINATION BP 110/72 Ht 5' 4 Wt 174 lb 6.4 oz BMI 29.94 kg/m2 General Appearance: alert, cooperative, no distress [...] RFLX HPV HR ASCU RFLX 16,18 Routine 10/09/2017 9:33 AM CDT Pap smear, as part of routine gynecological examination documented in this encounter Results * PAP IG LB RFLX HPV HR ASCU RFLX 16,18 (10/09/2017 9:33 AM CDT) Diagnosis [facility] ACCOUNT BILL Comment:NEGATIVE FOR INTRAEP ITHELIAL LESION AND MALIGNANCY. Specimen Adequacy [facility] ACCOUNT BILL Comment: Satisfactory for evaluation. ??Endocervical and/or squamous metaplastic cells (endocervical component) are present. Clinician Provided ICD10 [facility] ACCOUNT BILL Comment:Z01.419 Performed by [facility] ACCOUNT BILL Comment:Nae Lua, Cytote chnologist ([facility]) Comment . [facility] ACCOUNT BILL Note [...] ThinPrep Vial Resulting Agency Comment [facility] [address] [facility] ??[place] ARIZMENDI [id number] Jean Joy MD LAB - PATHOLOGY/CYTO LOGY ORDERABLES [facility] ACCOUNT BILL [address] [place] [address] documented in this encounter Visit Diagnoses Diagnosis Pap smear, as part of routine gynecological examination- Primary Screening for malignant neoplasm of the cervix documented in this encounter Care Teams Casino Worker Relationship Specialty Start Date End Date Jean Joy MD PCP - OBGYN 12/27/07 Yvan Booth MD [address] [place] [address] PCP - General 11/04/09 01/04/23 documented as of this encounter
--- OUTSIDE RECORDS SUMMARY | 2024-03-19 20:47 | XMS_ITS | Encounter Summary ---
Author Organization [facility] Address [address] [facility] [place] [address] Care Team Providers Care Roll Line Operator Name Role Phone Jean Joy MD Unavailable [phone] Yvan Booth MD Primary Care Provider [phone] Encounter Details Date Type Department Care Team (Late st Contact Info) Description 09/04/2019 Orders Only [facility] [address] [place] [address] Consuelo Munoz, CASH REGISTER [facility] [address] [place] [address] Immunity status testing Social History Tobacco Use [...] of this encounter Plan of Treatment Scheduled Orders Name Type Priority Associated Diagnoses Orde r Schedule SARS-COV-2 (COVID-19) ANTIBODY IGG Lab Routine Immunity status testing Ordered: 09/04/2019 documented as of this encounter Visit Diagnoses Diagnosis Immunity status testing- Primary Antibody response examination documented in this encounter Care Teams Roll Line Operator Relationship Specialty Start Date End Date Jean Joy MD PCP - OBGYN 12/27/07 Yvan Booth MD [address] [place] [id number] PCP - General 11/04/09 01/04/23 documented as of this encounter
--- OUTSIDE RECORDS SUMMARY | 2024-03-19 20:47 | XMS_ITS | Encounter Summary ---
Author Organization [facility] Address [address] [address] Care Team Providers Care Coin Rolling Machine Operator Name Role Phone Jean Joy MD Unavailable [phone] Yvan Booth MD Primary Care Provider [phone] Jaden Thakur DO Unavailable [phone] Reason for Visit * Auth/Cert Specialty Diagnoses / Procedures Referred By Conttorin t Referred To Contact Diagnoses Screen for colon cancer Screen for colon cancer [Z12.11] Procedures COLONOSCOPY SCREEN Referral ID Status Reason Start Date Expiration Date Visits Re quested Visits Authorized [id number] 1 1 Encounter Details Date Type Department Care Team (Late st Contact Info) Description 08/25/2021 9:57 AM CDT Anesthesia Event [facility] [place] - Endoscopy Surgery [address] [place] [address] Jerry Uriarte MD [address] [place] [address] [address] [place] [address] Aminata Cain, [facility] [address] [place] [address] Anesthesia Record Procedure Summary Procedure Name Responsible Anesthesiologist Anesthesia Start Time Anesthesia Stop Time COLONOSCOPY SCREEN Jerry Uriarte MD 08/25/21 0957 08/10 08/31 1016 Events Date Time Event Comment 08/25/2021 0849 0957 An Start 0957 An Start Data 0959 PT Reassessment 1001 Timeout Anesthesia part icipated in timeout at the time documented in the record by nursing. 1016 an stop data 1016 PACU Orders Reviewed 1016 ANPTO2 1016 Electnc Sig This record is electronically signed by the providers listed under staff. 1016 An Stop Meds Name Total lidocaine (XYLOCAINE MPF) 1% injection ( 10 mg/mL) 50 mg lactated ringers infusion 200 mL propofol injection 10mg/mL (ENDO USE) 30 mL * Agents Name Exp. N2O O2 N2O * Blood No blood administrations on file. Lines, Drains, and Airways Type Details Placement Removal Peripheral IV Date: 08/25/21; Time : 833; Orientation: Posterior, Right; Placed By: Gabrielle Low RN; Tolerance: Well 08/25/21 0834 by Mariel Low RN 08/25/21 1100 by Zeinab Conti RN documented in this encounter Social History [...] No 08/25/2021 documented as of this encounter Progress Notes * Aminata Cain APRN-DEXIGRAPH OPERATOR - 08/25/2021 10:16 AM CDT ANESTHESIA POSTOP EVALUATION NOTE Procedure: COLONOSCOPY SCREEN (N/A ) COLONOSCOPY REMOVAL OR ABLATION TUMOR/POLYP/LESION (ANY METHOD) (N/A ) Consuelo Darby is a 40 year old female Patient Vitals for the past 6 hrs: BP Temp Pulse Resp SpO2 Pain Rating Score #1 Pain Scale/Observation 08/25/21 0819 135/69 97.5 ??F (36.4 ??C) 96 20 100 % 0 N 08/25/21 0959 -- -- -- -- -- 0 B Anesthesia Type: MAC Pre-op Diagnosis Codes: * Screen for colon cancer [Z12.11] Mental Status: alert, neurologic status has returned to perioperative level, awake and oriented Neuro Status: No numbess, tingling or visual disturbances Respiratory Function: natural Cardiac Function: stable Postop Pain: acceptable to the patient Postop Hydration: adequate Postop Nausea: none Assessment: no apparent anesthetic complications, patient tolerated procedure well and no evidence of recall Patient Disposition: Release from Anesthesia Care COMPLICATIONS: No complications documented. * Aminata Cain APRN-DEXIGRAPH OPERATOR - 08/25/2021 8:48 AM CDT ANESTHESIA PREOPERATIVE EVALUATION NOTE Procedure: COLONOSCOPY SCREEN NPO status: Since Midnight (08/25/2021 8:35 AM) Vitals: Patient Vitals for the past 6 hrs: BP Temp Pulse Resp SpO2 Pain Rating Score #1 08/25/21 0819 135/69 97.5 ??F (36.4 ??C) 96 20 100 % 0 LMP: Patient's last menstrual period was 06/27/2021 (approximate). OB Status: Continuous Control ANESTHESIA PRE-EVALUATION NOTE The patient is a current non-smoker. Physical Exam: Orientation X3 Airway/Mallampati Score: II Mouth Opening Distance: 3 fingerwidths Neck ROM: full TM Distance: > 3 FB Teeth: normal Heart: normal - S1 S2 Lungs: clear to ausculation bilaterally Review of Systems: History of anesthetic complications: No Sleep Apnea Risk: No GERD: Yes, well controlled ANESTHESIA PLAN ASA Score: 2 NPO Status: No solids since midnight and No liquids within 2 hours Anesthesia Plan: MAC Planned Induction: intravenous Planned Postop Destination: endo Anesthetic plan was discussed with: patient Anesthetic Plan discussion was: Consented The patient's procedural Anesthetic Plan was discussed with the DEXIGRAPH OPERATOR. BMI, Height, Weight Tobacco History Estimated body mass index is 32.1 kg/m?? as calculated from the following: Height as of this encounter: 1.626 m (5' 4 ). Weight as of this encounter: 84.8 kg (187 lb). Social History Tobacco Use Smoking Status Former Smoker ??? Packs/day: 0.50 ??? Types: Cigarettes ??? Quit date: 2014 ??? Years since quittin.4 Smokeless Tobacco Never Used Alcohol History Drug History Social History Substance and Sexual Activity Alcohol Use No ??? Alcohol/week: 0.0 - 1.7 standard drinks Comment: Occasional Social History Substance and Sexual Activity Drug Use No Outpatient Medications: Inpatient Medications: Outpatient Medications Marked as Taking for the 08/25/21 encounter (Hospital Encounter) Medication Sig Last Dose ??? amitriptyline Take 25 mg by mouth at bedtime 08/24/2021 at 2100 ??? Cetirizine HCl (ZYRTEC PO) Take 10 mg by mouth once daily 08/24/2021 at 2100 ??? levonorgestrel-ethinyl estradiol TAKE 1 TABLET BY MOUTH EVERY DAY CONTINUOUSLY Reasons: Control Treatment 08/24/2021 at 2100 ??? omeprazole Take 20 mg by mouth daily before breakfast 08/24/2021 at 2100 ??? Vitamin D3 (cholecalciferol) Take 2,000 Units by mouth once daily 08/24/2021 at 2100 No current facility-administered medications for this encounter. Allergies: Allergies Allergen Reactions ??? 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 GERD (gastroesophageal reflux disease) Medical History: Past Medical History: Diagnosis Date ??? Abdominal pain, right upper quadrant ??? GERD (gastroesophageal reflux disease) ??? History of hypertension gestational hypertension Surgical History: Past Surgical History: Procedure Laterality Date ??? Section ??? Section 03/01/2016 SECTION REPEAT ??? Cholecystectomy ??? Cholecystectomy, Laparoscopic 02/22/2012 N/A; LAPAROSCOPIC CHOLECYSTECTOMY SINGLE INCISION ??? 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 Continuous Control OB History Para Term [...] Vaccine: Lab Results: Recent Labs Component Name 08/25/21 0823 HCGURINE Negative No results found for requested labs within last 120 days. No results found for requested labs within last 120 days. Anesthesia pre op re evaluation by AMOR Chacon 08/25/2021 8:58 AM documented in this encounter Miscellaneous Notes * Anesthesia Transfer of Care - Aminata Cain APRN-CRNA - 08/25/2021 10:16 AM CDT ANESTHESIA TRANSFER OF CARE NOTE Today's Date: 08/25/2021 Date of : 1980 Patient: Consuelo Darby Procedure(s): COLONOSCOPY SCREEN COLONOSCOPY REMOVAL OR ABLATION TUMOR/POLYP/LESION (ANY METHOD) Surgeon(s): Primary: Sathya Foster MD Preop Diagnosis: Pre-op Diagnois: * Screen for colon cancer [Z12.11] Pre-op Meds (From admission, onward) Start Stop Status Route Frequency Ordered 08/25/21 0900 lactated ringers infusion -- Verified IV PRE-OP CONTINUOUS 08/25/21 0850 08/25/21 1002 lidocaine PF (Xylocaine MPF) 1 % injection -- Sent IV PRN 08/25/21 1003 08/25/21 0849 lidocaine PF (Xylocaine MPF) 1 % injection 0.2 mL -- Verified INFILTRATION PRE-OP MULTIPLE 08/25/21 0850 08/25/21 1002 propofol (Diprivan) injection -- Sent IV CONTINUOUS PRN 08/25/21 1003 Post-op Diagnosis: * Screen for colon cancer [Z12.11] . Allergies Allergen Reactions ??? 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: Patient Vitals for the past 3 hrs: BP Temp Pulse Resp SpO2 Pain Rating Score #1 08/25/21 0959 -- -- -- -- -- 0 08/25/21 0819 135/69 97.5 ??F (36.4 ??C) 96 20 100 % 0 Lines, Drains, and Airways Type Details Placement Removal Peripheral IV Date: 08/25/21; Time: 833; Orientation: Posterior, Right; Location: Hand; Placed By:Gabrielle Low RN; Gauge: 22 Gauge ; Locals: None; Tolerance: Well 08/25/21 0834 by Mariel Low RN Intraprocedure I/O Totals Intake propofol injection 10mg/mL (ENDO USE) 30.00 mL lactated ringers infusion 200.00 mL Total Intake 230 mL Patient Transfer Location: Endo Recovery Transport Airway: supplemental O2 and spontaneous respirations Complications: None Handoff Given? Yes [...] understanding of report from the receiving PACUteam. AMOR Chacon documented in this encounter Plan of Treatment Not on file documented as of this encounter Visit Diagnoses Not on filedocumented in this encounter Administered Medications Inactive Administered Medications - up to 3 most recent administrations Medication Order MAR Action Action Date Dose Rate Site lactated ringers infusion at 20 mL/hr, Intravenous, PRE-OP CONTINUOUS, Starting on Katy 08/25/21 at 0900, Until Katy 6/16/22 at 1311, Pre-op $ New Bag/Syringe 08/25/2021 9:57 AM CDT lidocaine PF (Xylocaine MPF) 1 % injection Intravenous, PRN, Starting on Katy 08/25/21 at 1002, Until Katy 08/25/21 at 1016, Anesthesia Intra-op $ Given 08/25/2021 10:02 AM CDT 50 mg propofol (Diprivan) injection Intravenous, CONTINUOUS PRN, Starting on Katy 08/25/21 at 1002, Until Katy 08/25/21 at 1016, Anesthesia Intra-op $ New Bag/Syringe 08/25/2021 10:02 AM CDT documented in this encounter Care Teams Coin Rolling Machine Operator Relationship Specialty Start Date End Date Jean Joy MD PCP - OBGYN 12/27/07 Yvan Booth MD [address] [place] [phone] PCP - General 11/04/09 01/04/23 Jaden Thakur DO [address] [place] [id number] PCP - Attributed[facility] 09/10/19 06/28/23 documented as of this encounter
--- OUTSIDE RECORDS SUMMARY | 2024-03-19 20:47 | XMS_ITS | Encounter Summary ---
Author Organization [facility] Address [address] [place] [address] Care Team Providers Care Plant Operations Worker Name Role Phone Jean Joy MD Unavailable [phone] Yvan Booth MD Primary Care Provider [phone] Reason for Visit * Reason Onset Date Comments Results 07/26/2018 Encounter Details Date Type Department Care Team (Late st Contact Info) Description 07/26/2018 Telephone [facility] [address] [phone] Xochitl Rios, SHUTTLE DRIVER-[facility] [address] [place] [address] Results Social History Tobacco Use Types Packs/Day Years [...] encounter Miscellaneous Notes * Telephone Encounter - Xochitl Rios APRN-CNP - 07/26/2018 1:44 PM CDT Attempted to call patient for test results, no answer. Message left with a call back number BRUCE Mondragon documented in this encounter Plan of Treatment Not on file documented as of this encounter Visit Diagnoses Not on filedocumented in this encounter Care Teams Plant Operations Worker Relationship Specialty Start Date End Date Jean Joy MD PCP - OBGYN 12/27/07 Yvan Booth MD [address] [place] [phone] PCP - General 11/04/09 01/04/23 documented as of this encounter
--- OUTSIDE RECORDS SUMMARY | 2024-03-19 20:47 | XMS_ITS | Encounter Summary ---
Author Organization [facility] Address [address] [place] [address] Care Team Providers Care Job Printer Name Role Phone Jean Joy MD Unavailable [phone] Yvan Booth MD Primary Care Provider [phone] Reason for Visit * Reason Comments Pain Flank RLQ and into right l ower back began 0400. +nasuea. States almost feels like a UTI. - hx of kidney stones Encounter Details Date Type Department Care Team (Late st Contact Info) Description 12/09/2018 8:59 AM CDT - 12/09/2018 11:07 AM CDT Emergency ER at [facility] [address] [place] [address] Adam Vásquez DO [address] [place] [address] Kidney stone on right side (Primary Dx); Flank pain Discharge Disposition: Home or Self Care [...] Sign Reading Time Taken Comments Blood Pressure 123/64 12/09/2018 11:00 AM CDT Pulse 83 12/09/2018 8:04 AM CDT Temperature 37.1 ??C (98.8 ??F) 12/09/2018 11:06 AM C DT Respiratory Rate 16 12/09/2018 8:04 AM CDT Oxygen Saturation 98% 12/09/2018 11:00 AM CDT Inhaled Oxygen Concentration - - Weight 81.6 kg (180 lb) 12/09/2018 8:04 AM CDT Height 162.6 cm (5' 4 ) 12/09/2018 8:04 AM CDT Body Mass Index 30.9 12/09/2018 8:04 AM CDT documented in this encounter Functional [...] No 03/01/2016 documented as of this encounter Discharge Instructions * Attachments The following attachments cannot be sent through Care Everywhere. * Kidney Stones (AfterCare(R) Instructions(ER/ED)) (Arabic) documented in this encounter Medications at Time of Discharge Medication Sig Dispensed Refills Start Date End Date Cetirizine HCl (ZYRTEC PO) Take 10 mg by mouth once daily levonorgestrel-ethiny l estradiol (LESSINA-28) 0.1-20 MG-MCG tabletIndications:Con traceptive Therapy TAKE 1 TABLET BY MOUTH ONCE DAILY CONTINUOUSLY Reasons: Control Treatment 3 packet 4 12/04/2018 11/19/2019 ondansetron (ZOFRAN) 4 MG tablet Take 1 tablet by mouth every 4 hours as needed for Nausea/Vomiting 15 tablet 12/09/2018 01/09/2020 oxyCODONE-acetaminoph en (PERCOCET) 5-325 MG tablet Take 1-2 tablets by mouth every 4 hours as needed for Pain 12 tablet 12/09/2018 01/09/2020 tamsulosin (FLOMAX) 0.4 MG capsule Take 1 capsule by mouth once daily At the same time every day after a meal. 7 capsule 12/09/2018 01/09/2020 documented as of this encounter ED Notes * Adam Vásquez, DO - 12/09/2018 9:08 AM CDT Consuelo Darby [id number] [facility] EMERGENCY DEPARTMENT History Chief Complaint Patient presents with ??? Pain Flank RLQ and into right lower back began 0400. +nasuea. States almost feels like a UTI. - hx of kidneystones HPI: Consuelo Darby is a 38 year old female with a history of GERD and HTN presenting to the ED with a chief complaint of right flank and RLQ abdominal pain. Patient states that the pain onset suddenly this morning at 0400. She has experienced constant pain since onset. She describes the pain as starting in her right lower back, and radiating to her abdomen. She has experienced associated nausea, vomiting and chills. She also has experienced urinary urgency without being able to urinate. She denies a documented fever. Denies diarrhea. SHx includes and cholecystectomy. Past Medical History: Diagnosis Date ??? Abdominal pain, right upper quadrant ??? GERD (gastroesophageal reflux disease) ??? History of hypertension gestational hypertension Past Surgical History: Procedure Laterality Date ??? Section ??? Section 03/01/2016 SECTION REPEAT ??? Cholecystectomy ??? Cholecystectomy, Laparoscopic 02/22/2012 N/A; LAPAROSCOPIC CHOLECYSTECTOMY SINGLE INCISION ??? COLONOSCOPY Family History Problem Relation Age of Onset [...] History ??? 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 Financial resource strain: Not on file ??? Food insecurity: Worry: Not on file Inability: Not on file ??? Transportation needs: Medical: Not on file Non-medical: Not on file Tobacco Use ??? Smoking status: Former Smoker Packs/day: 0.50 Types: Cigarettes ??? Smokeless tobacco: Never Used Substance and Sexual Activity ??? Alcohol use: No Alcohol/week: 0.0 - 1.7 standard drinks Comment: Occasional ??? Drug use: No ??? Sexual activity: Yes Partners: Male control/protection: Pill Lifestyle ??? Physical activity: Days per week: Not on file Minutes per session: Not on file ??? Stress: Not on file Relationships ??? Social connections: Talks on phone: Not on file Gets together: Not on file Attends gnosticist service: Not on file Active member of club or organization: Not on file Attends meetings of clubs or organizations: Not on file Relationship status: Not on file ??? Intimate partner violence: Fear of current or ex partner: Not on file Emotionally abused: Not on file Physically abused: Not on file Forced sexual activity: Not on file Other Topics Concern ??? Special Diet No Social History Narrative ??? Not on file Review of Systems Review of Systems Constitutional: Negative. HENT: Negative. Eyes: Negative. Respiratory: Negative. Cardiovascular: Negative. Gastrointestinal: Positive for abdominal pain, nausea and vomiting. Negative for diarrhea. Genitourinary: Positive for flank pain and urgency. Musculoskeletal: Positive for back pain. Skin: Negative. Neurological: Negative. Endo/Heme/Allergies: Negative. Psychiatric/Behavioral: Negative. Physical Exam BP 123/64 Pulse 83 Temp 98.8 ??F (37.1 ??C) (Oral) Resp 16 Ht 1.626 m (5' 4 ) Wt 81.6 kg (180 lb) SpO2 98% BMI 30.9 kg/m2 Patient Vitals for the past 24 hrs: Temp Pulse Resp BP SpO2 12/09/18 1106 98.8 ??F (37.1 ??C) -- -- -- -- 12/09/18 1100 -- -- -- 123/64 98 % 12/09/18 1055 -- -- -- -- 100 % 12/09/18 1030 -- -- -- 118/58 99 % 12/09/18 1000 -- -- -- 138/83 99 % 12/09/18 0930 -- -- -- 135/67 98 % 12/09/18 0918 -- -- -- -- 99 % 12/09/18 0917 -- -- -- 148/78 -- 12/09/18 0804 -- 83 16 151/87 99 % Physical Exam Constitutional: She is oriented to person, place, and time. Vital signs are normal. She appears well-developed and well-nourished. HENT: Head: Normocephalic and atraumatic. Eyes: Pupils are equal, round, and reactive to light. Conjunctivae, EOM and lids are normal. Neck: Trachea normal and normal range of motion. Neck supple. Cardiovascular: Normal rate, regular rhythm, normal heart sounds and normal pulses. Pulmonary/Chest: Effort normal and breath sounds normal. Abdominal: Soft. Normal appearance, normal aorta and bowel sounds are normal. There is CVA tenderness (right, tender to palpation). Musculoskeletal: Normal range of motion. Neurological: She is alert and oriented to person, place, and time. She has normal strength. GCS eye subscore is 4. GCS verbal subscore is 5. GCS motor subscore is 6. Skin: Skin is warm, dry and intact. Psychiatric: She has a normal mood and affect. Her speech is normal and behavior is normal. Judgment and thought content normal. Cognition and memory are normal. Nursing note and vitals reviewed. Medications Current Outpatient Medications Medication Sig Dispense Refill ??? Cetirizine HCl (ZYRTEC PO) Take 10 mg by mouth once daily ??? levonorgestrel-ethinyl estradiol (LESSINA-28) 0.1-20 MG-MCG tablet TAKE 1 TABLET BY MOUTH ONCE DAILY CONTINUOUSLY Reasons: Control Treatment 3 packet 4 ??? ondansetron (ZOFRAN) 4 MG tablet Take 1 tablet by mouth every 4 hours as needed for Nausea/Vomiting 15 tablet 0 ??? oxyCODONE-acetaminophen (PERCOCET) 5-325 MG tablet Take 1-2 tablets by mouth every 4 hours as needed for Pain 12 tablet 0 ??? tamsulosin (FLOMAX) 0.4 MG capsule Take 1 capsule by mouth once daily At the same time every day after a meal. 7 capsule 0 Procedures Procedures Lab Interpretation Oxygen Saturation Interpretation The oxygen saturation level is: 99%. The patient was on Room Air for the saturation measurement. Measurement frequency: Spot Check. Oxygen saturation interpretation is Normal. Intervention(s) used: None. Hospital Encounter on 12/09/18 CBC W AUTO DIFFERENTIAL Result Value Ref Range WBC 14.7 (H) 4.4 - 10.7 x10E9/L WBC Corrected RBC 4.60 3.80 - 5.20 x10E12/L Hemoglobin 14.0 12.0 - 15.6 gm/dL Hematocrit 42.4 35.9 - 45.5 % MCV 92.2 80.7 - 98.3 fl MCH 30.4 26.7 - 34.0 pg MCHC 33.0 30.8 - 35.9 gm/dL Platelet Count 363 153 - 416 x10E9/L RDW-CV 12.9 12.1 - 14.9 % MPV 10.9 9.4 - 12.9 fl Neutrophils % 82.7 (H) 44.0 - 73.0 % Lymphocytes % 13.2 (L) 20.0 - 43.0 % Monocytes % 3.3 (L) 5.0 - 13.0 % Eosinophils % 0.2 0.0 - 6.0 % Basophils % 0.3 0.0 - 2.0 % Immature Granulocytes 0.3 0 - 1 % Neutrophil Absolute 12.10 (H) 2.01 - 7.14 x10E9/L Lymphocytes Absolute 1.94 1.07 - 3.94 x10E9/L Monocytes Absolute 0.49 0.26 - 1.07 x10E9/L Eosinophils Absolute 0.03 0 - 0.47 x10E9/L Basophils Absolute 0.05 0 - 0.08 x10E9/L Immature Granulocytes Absolute 0.04 0.00 - 0.06 x10E9/L nRBC Auto 0 /100 WBC COMPREHENSIVE METABOLIC PANEL Result Value Ref Range Glucose 120 (H) 74 - 106 mg/dL Sodium 138 136 - 145 mmol/L Potassium 3.8 3.5 - 5.1 mmol/L Chloride 102 98 - 107 mmol/L CO2 24 23 - 31 mmol/L Calcium 9.4 8.4 - 10.2 mg/dL Anion Gap 12 8 - 16 mmol/L BUN 10 7 - 18.7 mg/dL Creatinine 0.82 0.55 - 1.02 mg/dL Alkaline Phosphatase 56 40 - 150 U/L ALT 17 0 - 61 U/L AST 18 5 - 34 U/L Protein Total 8.4 (H) 6.4 - 8.3 gm/dL Albumin 4.5 3.5 - 5.2 gm/dL Bilirubin Total 0.3 0.2 - 1.0 mg/dL eGFR by MDRD >60 >60 mL/min/1.73m2 eGFR by MDRD >60 >60 mL/min/1.73m2 URINALYSIS REFLEX MICROSCOPIC REFLEX CULTURE Result Value Ref Range Color UA Yellow Straw, Yellow Clarity UA Clear Clear Glucose UA Negative Negative Bilirubin UA Negative Negative Ketone UA 1+ (Abnormal) Negative Specific [place] UA 1.023 1.005 - 1.030 Blood UA 3+ (Abnormal) Negative pH UA 6.0 5.0 - 8.0 pH Protein UA Negative Negative Urobilinogen UA Negative Negative mg/dL Nitrite UA Negative Negative Leukocyte UA Negative Negative Urine Microscopy Urine microscopy to follow Reflex Status Culture not indicated HCG URINE QUAL POCT NOTIFICATION Result Value Ref Range Comment Notification Label Only - See Separate Report URINE MICROSCOPIC ONLY REFLEX TO CULTURE Result Value Ref Range Reflex Status Culture not indicated RBC UA 21-50 (Abnormal) None Seen, 0-2, 3-5 # /hpf WBC UA 0-5 None Seen, 0-5 # /hpf Bacteria UA Trace (Abnormal) None Seen Squamous Epithelial Cells 3-5 None Seen, 0-2, 3-5 /hpf Mucus UA 1+ /LPF HCG URINE QUALITATIVE - POCT (IP) INTERFACED Result Value Ref Range HCG Qual Urine Negative Negative CT ABD/PELVIS STONE PROTOCOL Final Result CT abdomen pelvis without IV contrast INDICATION: [...] Luis MD on 12/09/2018 at 10:38 AM Progress Notes Initial plan for diagnostic studies including: CT (A/P stone), CBC, CMP, urinalysis, HCG, urine culture. Will give Zofran, Morphine, Toradol. Plan for reassessment. 1036: Awaiting CT results. 1052: HCG negative. WBC elevated at 14.7. Urinalysis shows 3+ blood and 1+ ketones in urine. CT abdomen shows a 3 mm stone in right UVJ with mild right hydronephrosis and hydroureter. 1053: Patient reassessed and if feeling better. I discussed the findings of her imaging and labs, and she is wanting to go home. Will plan for discharge with plan for follow up. Patient is agreeable. Results of all emergency department testing were discussed with the patient. Working diagnosis and treatment plan discussed. The patient was informed to follow up with urology. I reviewed discharge instructions with the patient. Patient understands these instructions regarding their diagnosis, expectations, follow up, and return precautions. All questions were answered prior to discharge. The patient feels well and is stable at discharge. The patient appears nontoxic with stable vital signs. The patient is to return to the ER if symptoms worsen or other concerns arise. The patient is agreeable with discharge. ED Course Clinical Impressions as of Dec 09 1728 Flank pain Kidney stone on right side Medical Decision Making I have reviewed the: Previous Chart, Nursing Notes, Vitals. I have interpreted the following results: Labs, CT Scans (A/P stone) and Oxygen Saturation. Orders Placed This Encounter ??? CT ABD/PELVIS STONE PROTOCOL ??? CBC W AUTO DIFFERENTIAL ??? COMPREHENSIVE METABOLIC PANEL ??? URINALYSIS REFLEX MICROSCOPIC REFLEX CULTURE ??? HCG URINE QUAL POCT NOTIFICATION ??? URINE MICROSCOPIC ONLY REFLEX TO CULTURE ??? DISCONTD: 0.9% NaCl injection 3 mL ??? DISCONTD: 0.9% NaCl injection 1-10 mL ??? DISCONTD: ondansetron (ZOFRAN) injection 4 mg ??? morphine injection 4 mg ??? ketorolac (TORADOL) injection 30 mg ??? ondansetron (ZOFRAN) 4 MG tablet ??? oxyCODONE-acetaminophen (PERCOCET) 5-325 MG tablet ??? tamsulosin (FLOMAX) 0.4 MG capsule BP 123/64 Pulse 83 Temp 98.8 ??F (37.1 ??C) (Oral) Resp 16 Ht 1.626 m (5' 4 ) Wt 81.6 kg (180 lb) SpO2 98% BMI 30.9 kg/m2 Disposition: Discharged Diagnosis: Encounter Diagnoses Name Primary? Flank pain ??? Kidney stone on right side Yes New Medications at discharge: Discharge Medication List as of 12/09/2018 11:00 AM START taking these medications Details ondansetron (ZOFRAN) 4 MG tablet Disp-15 tablet, R-0, Take 1 tablet by mouth every 4 hours as needed for Nausea/Vomiting, Print oxyCODONE-acetaminophen (PERCOCET) 5-325 MG tablet Disp-12 tablet, R-0, Take 1-2 tablets by mouth every 4 hours as needed for Pain, Print tamsulosin (FLOMAX) 0.4 MG capsule Disp-7 capsule, R-0, Take 1 capsule by mouth once daily At the same time every day after a meal., Print Follow-up Information Follow-up With Details Why Contact Info Valdez Polo MD Schedule an appointment as soon as possible for a visit in 4 days if stone has not passed by tomorrow [address] [phone] User Date/Time Adam Vásquez DO SunDec 09, 2018 10:54 AM Scribe Signature and Attestation By signing my name below, I, Soham Martin, attest that this documentation has been prepared under the direction and in the presence of Adam Vásquez DO Electronically Signed: audrey Pizarro. 12/09/2018. Time 1054 Provider Signature and Attestation I, Dr. Adam Vásquez, personally performed the services described in this documentation. All medical record entries made by the scribe were at my direction and in my presence. I have reviewed the chart and agree that the record reflects my personal performance and is accurate and complete. Adam Vásquez DO. 12/09/2018. Time 1054 documented in this encounter Plan of Treatment Not on file documented as of this encounter Procedures Procedure Name Priority Date/Time Associated Diagnosis Comments CT RENAL STONE STAT 12/09/2018 10:21 AM CDT Flank pain HCG URINE QUAL POCT NOTIFICATION STAT 12/09/2018 9:31 AM CDT URINE MICROSCOPIC ONLY REFLEX TO CULTURE STAT 12/09/2018 8:12 AM CDT HCG URINE QUALITATIVE - POCT (IP) INTERFACED Routine 12/09/2018 8:12 AM CDT URINALYSIS REFLEX MICROSCOPIC REFLEX CULTURE STAT 12/09/2018 8:12 AM CDT CBC W AUTO DIFFERENTIAL STAT 12/09/2018 8:12 AM CDT COMPREHENSIVE METABOLIC PANEL STAT 12/09/2018 8:12 AM CDT documented in this encounter Results * CT ABD/PELVIS STONE PROTOCOL (12/09/2018 10:21 [...] MD on 12/09/2018 at 10:38 AM Adam Vásquez DO CT ORDERABLES * HCG URINE QUAL POCT NOTIFICATION (12/09/2018 9:31 AM CDT) Comment Notification Label Only - See Separate Report 12/09/2018 9:31 AM CDT [facility] Urine URINE / Unknown 9 8:06 AM CDT Adam Vásquez DO LAB - URINALYSIS ORD ERABLES [facility] [address] [place] [address] * (ABNORMAL) URINE MICROSCOPIC ONLY REFLEX TO CULTURE (12/09/2018 8:12 AM CDT) Reflex Status Culture not indicated 12/09/2018 8:39 AM CDT [facility] RBC UA 21-50(A) None Seen, 0-2, 3-5 # /hpf 12/09/2018 8:39 AM CDT [facility] WBC UA 0-5 None Seen, 0-5 # /hpf 12/09/2018 8:39 AM CDT [facility] Bacteria UA Trace(A) None Seen 12/09/2018 8:39 AM CDT [facility] Squamous Epithelial Cells 3-5 None Seen, 0-2, 3-5 /hpf 12/09/2018 8:39 AM CDT [facility] Mucus UA 1+ /LPF 12/09/2018 8:39 AM CDT [facility] Urine URINE SPECIMEN OBTAINED BY CLEAN CATCH PROCEDURE / Unknown Collection / Unknown 12/09/2018 8:12 AM CDT 12/09/2018 8:30 AM CDT Narrative [facility] - 12/09/2018 8:39 AM CDT Adam Vásquez DO LAB - URINALYSIS ORD ERABLES [facility] [address] [place] [id number] * HCG URINE QUALITATIVE - POCT (IP) INTERFACED (12/09/2018 8:12 AM CDT) HCG Qual Urine Negative Negative 12/09/2018 8:18 AM CDT [facility] Urine URINE / Unknown 12/09/2018 8 :12 AM CDT 12/09/2018 8:18 AM CDT Provider Unknown LAB - POINT OF CARE ORDERABLES Performing Organization Address [facility]/ZIP Co de Phone Number [facility] [address] [phone] * (ABNORMAL) URINALYSIS REFLEX MICROSCOPIC REFLEX CULTURE (12/09/2018 8:12 AM CDT) Color UA Yellow Straw, Yellow 12/09/2018 8:35 AM CDT [facility] Clarity UA Clear Clear 12/09/2018 8:35 AM CDT [facility] Glucose UA Negative Negative 12/09/2018 8:35 AM CDT [facility] Bilirubin UA Negative Negative 12/09/2018 8:35 AM CDT [facility] Ketone UA 1+(A) Negative 12/09/2018 8:35 AM CDT [facility] Specific [place] UA 1.023 1.005 - 1.030 12/09/2018 8:35 AM CDT [facility] Blood UA 3+(A) Negative 12/09/2018 8:35 AM T [facility] pH UA 6.0 5.0 - 8.0 pH 12/09/2018 8:35 AM T [facility] Protein UA Negative Negative 12/09/2018 8:35 AM T [facility] Urobilinogen UA Negative Negative mg/dL 12/09/2018 8:35 AM CDT [facility] Nitrite UA Negative Negative 12/09/2018 8:35 AM T [facility] Leukocyte UA Negative Negative 12/09/2018 8:35 AM T [facility] Urine Microscopy Urine microscopy to follow 12/09/2018 8:35 AM [facility] Reflex Status Culture not indicated 12/09/2018 8:35 AM [facility] Urine URINE SPECIMEN OBTAINED BY CLEAN CATCH PROCEDURE / Unknown Collection / Unknown 12/09/2018 8:12 AM CDT 12/09/2018 8:30 AM CDT Narrative [facility] - 12/09/2018 8:35 AM CDT Ascorbic Acid can cause false negative urine strip tests for blood, glucose, nitrite, and bilirubin. Adam Vásquez DO LAB - URINALYSIS ORD ERABLES [facility] [address] [place] [address] * (ABNORMAL) COMPREHENSIVE METABOLIC PANEL (12/09/2018 8:12 AM CDT) Glucose 120(H) 74 - 106 mg/dL 12/09/2018 8:51 AM [facility] Sodium 138 136 - 145 mmol/L 12/09/2018 8:51 AM T [facility] Potassium 3.8 3.5 - 5.1 mmol/L 12/09/2018 8:51 AM T [facility] Chloride 102 98 - 107 mmol/L 12/09/2018 8:51 AM [facility] CO2 24 23 - 31 mmol/L 12/09/2018 8:51 AM T [facility] Calcium 9.4 8.4 - 10.2 mg/dL 12/09/2018 8:51 AM T [facility] Anion Gap 12 8 - 16 mmol/L 12/09/2018 8:51 AM CDT [facility] BUN 10 7 - 18.7 mg/dL 12/09/2018 8:51 AM CDT [facility] Creatinine 0.82 0.55 - 1.02 mg/dL 12/09/2018 8:51 AM CDT [facility] Alkaline Phosphatase 56 40 - 150 U/L 12/09/2018 8:51 AM CDT [facility] ALT 17 0 - 61 U/L 12/09/2018 8:51 AM CDT [facility] AST 18 5 - 34 U/L 12/09/2018 8:51 AM CDT [facility] Protein Total 8.4(H) 6.4 - 8.3 gm/dL 12/09/2018 8:51 AM CDT [facility] Albumin 4.5 3.5 - 5.2 gm/dL 12/09/2018 8:51 AM CDT [facility] Bilirubin Total 0.3 0.2 - 1.0 mg/dL 12/09/2018 8:51 AM CDT [facility] eGFR by MDRD >60 >60 mL/min/1.7 3m2 12/09/2018 8:51 AM T [facility] eGFR by MDRD >60 >60 mL/min/1.7 3m2 12/09/2018 8:51 AM T [facility] Blood BLOOD SPECIMEN / Unknown Venipuncture / Unknown 12/09/2018 8:12 AM CDT 12/09/2018 8:30 AM CDT Adam Vásquez DO LAB - CHEMISTRY [facility] Organization Address City/State/[facility] Co de Phone Number [facility] [address] [place] [address] * (ABNORMAL) CBC W AUTO DIFFERENTIAL (12/09/2018 8:12 AM CDT) WBC 14.7(H) 4.4 - 10.7 x10E9/L 12/09/2018 8:33 AM CDT [facility] WBC Corrected 12/09/2018 8:33 AM CDT [facility] RBC 4.60 3.80 - 5.20 x10E12/L 12/09/2018 8:33 AM CDT [facility] Hemoglobin 14.0 12.0 - 15.6 gm/dL 12/09/2018 8:33 AM [facility] Hematocrit 42.4 35.9 - 45.5 % 12/09/2018 8:33 AM [facility] MCV 92.2 80.7 - 98.3 fl 12/09/2018 8:33 AM [facility] MCH 30.4 26.7 - 34.0 pg 12/09/2018 8:33 AM [facility] MCHC 33.0 30.8 - 35.9 gm/dL 12/09/2018 8:33 AM [facility] Platelet Count 363 153 - 416 x10E9/L 12/09/2018 8:33 AM [facility] RDW-CV 12.9 12.1 - 14.9 % 12/09/2018 8:33 AM [facility] MPV 10.9 9.4 - 12.9 fl 12/09/2018 8:33 AM [facility] Neutrophils % 82.7(H) 44.0 - 73.0 % 12/09/2018 8:33 AM [facility] Lymphocytes % 13.2(L) 20.0 - 43.0 % 12/09/2018 8:33 AM [facility] Monocytes % 3.3(L) 5.0 - 13.0 % 12/09/2018 8:33 AM [facility] Eosinophils % 0.2 0.0 - 6.0 % 12/09/2018 8:33 AM [facility] Basophils % 0.3 0.0 - 2.0 % 12/09/2018 8:33 AM [facility] Immature Granulocytes 0.3 0 - 1 % 12/09/2018 8:33 AM [facility] Neutrophil Absolute 12.10(H) 2.01 - 7.14 x10E9/L 12/09/2018 8:33 AM [facility] Lymphocytes Absolute 1.94 1.07 - 3.94 x10E9/L 12/09/2018 8:33 AM [facility] Monocytes Absolute 0.49 0.26 - 1.07 x10E9/L 12/09/2018 8:33 AM [facility] Eosinophils Absolute 0.03 0 - 0.47 x10E9/L 12/09/2018 8:33 AM CDT [facility] Basophils Absolute 0.05 0 - 0.08 x10E9/L 12/09/2018 8:33 AM CDT [facility] Immature Granulocytes Absolute 0.04 0.00 - 0.06 x10E9/L 12/09/2018 8:33 AM CDT [facility] nRBC Auto 0 /100 WBC 12/09/2018 8:33 AM CDT [facility] Blood BLOOD SPECIMEN / Unknown Venipuncture / Unknown 12/09/2018 8:12 AM CDT 12/09/2018 8:30 AM CDT Adam M Thalia RUBIN LAB - HEMATOLOGY ORD ERABLES [facility] [address] [id number] documented in this encounter Visit Diagnoses Diagnosis Kidney stone on right side- Primary Calculus of kidney Flank pain Abdominal pain, unspecified site documented in this encounter Administered Medications Inactive Administered Medications - up to 3 most recent administrations Medication Order MAR Action Action Date Dose Rate Site 0.9% NaCl injection 1-10 mL 1-10 mL, Intracatheter, PRN, Other, peripheral line flush, Starting on Sun12/09/18 at 0805, Until Sun12/09/18 at 1208, Flush peripheral IV catheter with 1-10 mL of normal saline before and after medications and prn to clear blood from the line or to verify patency. 0.9% NaCl injection 3 mL 3 mL, Intracatheter, EVERY 8 HOURS, First dose on Sun12/09/18 at 0845, Until Discontinued, Flush peripheral IV catheter with 3 mL of normal saline every 8 hours. $ Given 12/09/2018 9:18 AM CDT 3 mL ketorolac (TORADOL) injection 30 mg 30 mg, Intravenous, NOW, 1 dose, On Sun12/09/18 at 0915 $ Given 12/09/2018 9:17 AM CDT 30 mg morphine injection 4 mg 4 mg, Intravenous, NOW, 1 dose, On Sun12/09/18 at 0845 $ Given 12/09/2018 8:51 AM CDT 4 mg ondansetron (ZOFRAN) injection 4 mg 4 mg, Intravenous, EVERY 30 MIN PRN, Nausea/Vomiting, 2 doses, Starting on Sun12/09/18 at 0805, Until Sun12/09/18 at 1208, Administer IV if patient is NPO, actively vomiting, or unable to swallow. $ Given 12/09/2018 8:20 AM CDT 4 mg documented in this encounter Active and Recently Administered Medications Times are shown in CDT. Scheduled Medication Order 12/07/2018 12/08/2018 12/09/2018 0.9% NaCl injection 3 mL(Linked Group 1) 3 mL, Intracatheter, EVERY 8 HOURS, First dose on Sun12/09/18 at 0845, Until Discontinued, Flush peripheral IV catheter with 3 mL of normal saline every 8 hours. 0918 ($ Given - Prov ider: Adwoa Ackerman RN) ketorolac (TORADOL) injection 30 mg (COMPLETED) 30 mg, Intravenous, NOW, 1 dose, On Sun12/09/18 at 0915 0917 ($ Given - Prov ider: Adwoa Ackerman, AMBROSE) morphine injection 4 mg (COMPLETED) 4 mg, Intravenous, NOW, 1 dose, On Sun12/09/18 at 0845 0851 ($ Given - Prov ider: Oksana Bansal, AMBROSE) PRN Medication Order 12/07/2018 12/08/2018 12/09/2018 0.9% NaCl injection 1-10 mL(Linked Group 1) 1-10 mL, Intracatheter, PRN, Other, peripheral line flush, Starting on Sun12/09/18 at 0805, Until Sun12/09/18 at 1208, Flush peripheral IV catheter with 1-10 mL of normal saline before and after medications and prn to clear blood from the line or to verify patency. ondansetron (ZOFRAN) injection 4 mg 4 mg, Intravenous, EVERY 30 MIN PRN, Nausea/Vomiting, 2 doses, Starting on Sun12/09/18 at 0805, Until Sun12/09/18 at 1208, Administer IV if patient is NPO, actively vomiting, or unable to swallow. 0820 ($ Given - Prov ider: Oksana Bansal, AMBROSE - Comment: medication thrown away prior to scanning) Linked Groups Order Group 1: SALINE LOCK, INSERT AND MAINTAIN (CANCELED) Routine, CONTINUOUS, Starting on Sun12/09/18 at 0815, Until Specified, New collection And 0.9% NaCl injection 3 mLJump to med 3 mL, Intracatheter, EVERY 8 HOURS, First dose on Sun12/09/18 at 0845, Until Discontinued, Flush peripheral IV catheter with 3 mL of normal saline every 8 hours. And 0.9% NaCl injection 1-10 mLJump to med 1-10 mL, Intracatheter, PRN, Other, peripheral line flush, Starting on Sun12/09/18 at 0805, Until Sun12/09/18 at 1208, Flush peripheral IV catheter with 1-10 mL of normal saline before and after medications and prn to clear blood from the line or to verify patency. documented in this encounter Care Teams Job Printer Relationship Specialty Start Date End Date Jean Joy MD PCP - OBGYN 12/27/07 Yvan Booth MD [address] [place] [address] PCP - General 11/04/09 01/04/23 documented as of this encounter
--- OUTSIDE RECORDS SUMMARY | 2024-03-19 20:47 | XMS_ITS | Encounter Summary ---
Author Organization [facility] Address [address] [facility] [place] [address] Care Team Providers Care Dishtank Operator Name Role Phone Jean Joy MD Unavailable Yvan Booth MD Primary Care Provider [phone] Jaden Thakur DO Unavailable [phone] Encounter Details Date Type Department Care Team (Late st Contact Info) Description 10/15/2020 7:00 PM CDT Office Visit [facility] AT [address] [address] PPD screening test (Primary Dx); ERRONEOUS ENCOUNTER--DISREGARD Social History Tobacco Use Types [...] as of this encounter Progress Notes * Tr Miranda APRN-CNP - 10/16/2020 10:29 AM CDT error documented in this encounter Plan of Treatment Not on file documented as of this encounter Visit Diagnoses Diagnosis PPD screening test- Primary Screening examination for pulmonary tuberculosis ERRONEOUS ENCOUNTER--DISREGARD documented in this encounter Care Teams Dishtank Operator Relationship Specialty Start Date End Date Jean Joy MD PCP - OBGYN 12/27/07 Yvan Booth MD [address] [place] [phone] PCP - General 11/04/09 01/04/23 Jaden Thakur DO [address] [place] [address] [id number] PCP - Attributed-[facility] STL 09/10/19 06/28/23 documented as of this encounter
--- OUTSIDE RECORDS SUMMARY | 2024-03-19 20:47 | XMS_ITS | Encounter Summary ---
Author Organization [facility] Address [address] [facility] [place] [address] Care Team Providers Care Spaghetti Press Helper Name Role Phone Jean Joy MD Unavailable [phone] Yvan Booth MD Primary Care Provider [phone] Reason for Visit * Reason Onset Date Comments Follow-up 05/09/2017 Encounter Details Date Type Department Care Team (Late st Contact Info) Description 05/09/2017 Telephone [facility] AT [address] [address] Oksana Mcduffie Follow-up Social History Tobacco Use Types Packs/Day [...] on filedocumented in this encounter Care Teams Spaghetti Press Helper Relationship Specialty Start Date End Date Jean Joy MD PCP - OBGYN 12/27/07 Yvan Booth MD [address] [place] [phone] PCP - General 11/04/09 01/04/23 documented as of this encounter
--- OUTSIDE RECORDS SUMMARY | 2024-03-19 20:47 | XMS_ITS | Encounter Summary ---
Author Organization [facility] Address [address] [facility] [place] [address] Care Team Providers Care Live In Caregiver Name Role Phone Jean Joy MD Unavailable [phone] Yvan Booth MD Primary Care Provider [phone] Jaden Thakur DO Unavailable Encounter Details Date Type Department Care Team (Latest Contact Info) Description 05/01/2022 Travel Social History Tobacco Use Types Packs/Day [...] Coronavirus/COVID-19? No / Unsure 05/01/2022 3:06 PM RIVET PASSER documented as of this encounter Functional Status [...] in this encounter Care Teams Live In Caregiver Relationship Specialty Start Date End Date Jean Joy MD PCP - OBGYN 12/27/07 Yvan Booth MD [address] [place] [phone] PCP - General 11/04/09 01/04/23 Jaden Thakur DO [address] [place] [address] [id number] PCP - Attributed-[facility] EHP STL 09/10/19 06/28/23 documented as of this encounter
--- OUTSIDE RECORDS SUMMARY | 2024-03-19 20:47 | XMS_ITS | Encounter Summary ---
Author Organization [facility] Address [address] [facility] [place] [address] Care Team Providers Care Associate Professor Of Management Name Role Phone Jean Joy MD Unavailable [phone] Yvan Booth MD Primary Care Provider [phone] Jaden Thakur DO Unavailable [phone] Reason for Visit * Reason Comments Refill Request Encounter Details Date Type Department Care Team (Late st Contact Info) Description 11/19/2019 Refill [facility] - INFECTION CONTROL NURSE [address] [facility] [address] [place] [address] [phone] Jean Joy MD [address] [facility] [place] [address] Refill Request Social History Tobacco [...] encounter Miscellaneous Notes * Telephone Encounter - Diamond Raymond RN - 11/19/2019 12:06 PM CDT Last seen 11/2018; WWE scheduled 12/26/19 documented in this encounter Plan of Treatment Not on file documented as of this encounter Visit Diagnoses Not on filedocumented in this encounter Care Teams Associate Professor Of Management Relationship Specialty Start Date End Date Jean Joy MD PCP - OBGYN 12/27/07 Yvan Booth MD [address] [place] [phone] PCP - General 11/04/09 01/04/23 Jaden Thakur DO [address] [place] [id number] PCP - Attributed-[facility]HP STL 09/10/19 06/28/23 documented as of this encounter
--- OUTSIDE RECORDS SUMMARY | 2024-03-19 20:47 | XMS_ITS | Encounter Summary ---
Author Organization [facility] Address [address] [facility] [place] [address] Care Team Providers Care Compacting Machine Operator/Tender Name Role Phone Jean Joy MD Unavailable [phone] Yvan Booth MD Primary Care Provider [phone] Jaden Thakur DO Unavailable [phone] Reason for Visit * Reason Onset Date Comments MEDICATION REFILL 01/24/2022 Encounter Details Date Type Department Care Team (Late st Contact Info) Description 01/24/2022 Refill [facility] Medical [facility] - SUBSTATION OPERATOR AUTOMATIC [address] [facility] [address] [place] [address] [phone] Jean Joy MD [address] [facility] [address] [place] [address] MEDICATION REFILL Social History Tobacco [...] Recorded Patient Health Questionnaire-2 Score 0 11/02/2022 [facility] - Occupational Stress [...] suspected to have Coronavirus/COVID-19? No / Unsure 08/10/2022 7:07 AM CDT documented as of this encounter [...] documented as of this encounter Care Teams Compacting Machine Operator/Tender Relationship Specialty Start Date End Date Jean Joy MD PCP - OBGYN 12/27/07 Yvan Booth MD [address] [place] [phone] PCP - General 11/04/09 01/04/23 Jaden Thakur DO [address] [place] [id number] PCP - Attributed-[facility]HP STL 09/10/19 06/28/23 documented as of this encounter
--- OUTSIDE RECORDS SUMMARY | 2024-03-19 20:47 | XMS_ITS | Encounter Summary ---
Author Organization [facility] Address [address] [facility] [place] [address] Care Team Providers Care Kiln Drawer Name Role Phone Jean Joy MD Unavailable [phone] Yvan Booth MD Primary Care Provider [phone] Jaden Thakur DO Unavailable Encounter Details Date Type Department Care Team (Latest Contact Info) Description 10/15/2020 Travel Social History Tobacco Use Types Packs/Day [...] on filedocumented in this encounter Care Teams Kiln Drawer Relationship Specialty Start Date End Date Jean Joy MD PCP - OBGYN 12/27/07 Yvan Booth MD [address] [place] [phone] PCP - General 11/04/09 01/04/23 Jaden Thakur DO [address] [place] [id number] PCP - Attributed-[facility] EHP STL 09/10/19 06/28/23 documented as of this encounter
--- OUTSIDE RECORDS SUMMARY | 2024-03-19 20:47 | XMS_ITS | Encounter Summary ---
Author Organization [facility] Address [address] [facility] [place] [address] Care Team Providers Care Shirt Presser Name Role Phone Jean Joy MD Unavailable [phone] Yvan Booth MD Primary Care Provider [phone] Reason for Visit * Reason Comments Congestion Encounter Details Date Type Department Care Team (Late st Contact Info) Description 02/17/2018 4:00 PM STOCK HOUSE WORKER Office Visit [facility] AT [address] [address] Provider, Rj Dillard [place] Acute maxillary sinusitis, recurrence not specified (Primary Dx); Antibiotic-induced yeast infection Social History Tobacco Use Types Packs/Day Years [...] Sign Reading Time Taken Comments Blood Pressure 118/76 02/17/2018 3:51 PM STOCK HOUSE WORKER Pulse 70 02/17/2018 3:51 PM STOCK HOUSE WORKER Temperature 36.8 ??C (98.3 ??F) 02/17/2018 3:51 PM CS T Respiratory Rate 20 02/17/2018 3:51 PM STOCK HOUSE WORKER Oxygen Saturation - - Inhaled Oxygen Concentration - - Weight 77.1 kg (170 lb) 02/17/2018 3:51 PM STOCK HOUSE WORKER Height - - Body Mass Index 29.18 10/09/2017 9:30 AM CDT documented in this [...] encounter Patient Instructions * Patient Instructions* David Leggett, MED AIDE-ROTO GRAVURE PRESS OPERATOR - 02/17/2018 3:49 PM STOCK HOUSE WORKER -Take and finish your prescriptions as directed. [...] be given by phone without another evaluation. K HOUSE WORKER documented in this encounter Progress Notes * David Leggett APRN-CNP - 02/17/2018 3:49 PM CST Subjective: Consuelo Darby is a 37 y.o. female who presents for evaluation: Chief Complaint Patient presents with ??? Congestion Primary Care Physician is Yvan Booth MD. Symptoms include ear pain bilateral, plugged sensation bilateral and congestion. Onset of symptoms was 2 weeks ago, gradually worsening since that time. congestion, bilateral ear pressure/pain, sinus pressure, non productive cough. She is drinking plenty of fluids. Evaluation to date: none. Treatment to date: none Allergies Allergen Reactions ??? 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 amoxicillin-clavulanate (AUGMENTIN) 875-125 MG tablet Take 1 tablet by mouth 2 times daily withmorning and evening meal for 10 days ??? fluconazole (DIFLUCAN) 150 MG tablet Take 1 tablet by mouth once for 1 dose Past Medical History: Diagnosis Date ??? Abdominal [...] Constitutional: Negative for fatigue, fevers, chills. Eyes: Negative Ears, nose, mouth, and throat: Positive for earaches bilaterally, sinus trouble, congestion, Negative for vertigo, tonsillitis Respiratory: Positive for acute cough, Negative for shortness of breath, dyspnea on exertion, pleuritic chest pain, asthma, wheezing Cardiovascular: Negative Neurological: Positive for headaches, Negative for dizziness, syncope, seizures Objective: There were no vitals taken for this visit. Skin: Physical Exam Exam General appearance: alert, cooperative, no distress Eyes: sclera and conjunctiva clear, EOMI and PERRLA, lids normal Ears: canals clear, tympanic membranes normal, hearing [...] and S2, without murmurs, gallops or rubs Neurologic: mental status normal; alert and oriented X 3; cranial nerves II - XII are grossly intact Assessment: . Encounter Diagnoses Name Primary? Acute maxillary sinusitis, recurrence not specified Yes ??? Antibiotic-induced yeast infection Plan: Discussed the dx and tx of [...] be given by phone without another evaluation. Continue to follow up with Yvan Booth MD as directed. After Visit Summary reviewed with patient. The patient indicates understanding of these issues and agrees with the plan. Patient discharged to Home .BRUCE Kramer 02/17/2018 3:50 PM Orders Placed This Encounter ??? amoxicillin-clavulanate (AUGMENTIN) 875-125 MG tablet Sig: Take 1 tablet by mouth 2 times daily with morning and evening meal for 10 days Dispense: 20 tablet Refill: 0 ??? fluconazole (DIFLUCAN) 150 MG tablet Sig: Take 1 tablet by mouth once for 1 dose Dispense: 1 tablet Refill: 0 No results found for this or any previous visit (from the past 24 hour(s)). K HOUSE WORKER documented in this encounter Plan of Treatment Not on file documented as of this encounter Visit Diagnoses Diagnosis Acute maxillary sinusitis, recurrence not specified- Primary Antibiotic-induced yeast infection documented in this encounter Care Teams Shirt Presser Relationship Specialty Start Date End Date Jean Joy MD PCP - OBGYN 12/27/07 Yvan Booth MD [address] [place] [address] PCP - General 11/04/09 01/04/23 documented as of this encounter
--- OUTSIDE RECORDS SUMMARY | 2024-03-19 20:47 | XMS_ITS | Encounter Summary ---
Author Organization [facility] Address [address] [place] [address] Care Team Providers Care Holistic Pulser Name Role Phone Jean Joy MD Unavailable [phone] Yvan Booth MD Primary Care Provider [phone] Reason for Visit * Reason Comments Pain Flank pt dx with UTI yeste rday, has worsened and is worried about kidney infection. Pt has flank pain, fever/chills, and appears diaphoretic. Encounter Details Date Type Department Care Team (Late st Contact Info) Description 07/25/2018 9:58 PM CDT - 07/26/2018 2:53 AM CDT Emergency ER at [facility] [address] [place] [id number] Rosa Stark, DO [address] [place] [address] Left flank pain; Fever, unspecified fever cause; Pyelonephritis Discharge Disposition: Home or Self Care Social [...] Sign Reading Time Taken Comments Blood Pressure 120/63 07/26/2018 2:20 AM CDT Pulse 84 07/26/2018 2:20 AM CDT Temperature 36.6 ??C (97.9 ??F) 07/26/2018 1:01 AM CD T Respiratory Rate 21 07/26/2018 2:20 AM CDT Oxygen Saturation 96% 07/26/2018 2:20 AM CDT Inhaled Oxygen Concentration - - Weight 79.4 kg (175 lb) 07/25/2018 8:06 PM CDT Height 162.6 cm (5' 4 ) 07/25/2018 8:06 PM CDT Body Mass Index 30.04 07/25/2018 8:06 PM CDT documented in this encounter Functional [...] this encounter Discharge Instructions * Discharge Instructions* Rosa Stark, DO - 07/26/2018 2:30 AM CDT Images from the original note were not included. Please return to the emergency department for worsening flank/back pain, fever, vomiting, or any new, worsening, or concerning symptoms. Kidney Infection WHAT YOU NEED TO KNOW: What is a kidney infection? A kidney infection, or pyelonephritis, is a bacterial infection. The infection usually starts in your bladder or urethra and moves into your kidney. One or both kidneys may be infected. What increases my risk for a kidney infection? ?? A history of urinary tract infections ?? An indwelling urinary catheter ?? Blocked urine flow or urine that flows backward from your urethra ? Medical conditions such as diabetes or kidney stones What are the signs and symptoms of a kidney infection? ?? Pain in your abdomen, lower back, or sides ?? Pain or burning when you urinate ?? A sudden strong urge to urinate or urinating more often than usual ?? Cloudy or bloody urine ?? Fever, chills, and fatigue ?? Nausea and vomiting How is a kidney infection diagnosed? Your healthcare provider will ask about your symptoms. He willalso ask if you have other health conditions. Blood and urine tests will show infection. An ultrasound may be done to show an infection, abscess, or other problems in your kidneys. How is a kidney infection treated? ?? Antibiotics treat your bacterial infection. ?? Acetaminophen decreases pain and fever. It is available without a doctor's order. Ask how much to take and how often to take it. Follow directions. Read the labels of all other medicines you are using to see if they also contain acetaminophen, or ask your doctor or pharmacist. Acetaminophen can cause liver damage if not taken correctly. Do not use more than 4 grams (4,000 milligrams) total of acetaminophen in one day. ?? NSAIDs , such as ibuprofen, help decrease swelling, pain, and fever. This medicine is available with or without a doctor's order. NSAIDs can cause stomach bleeding or kidney problems in certain people. If you take blood thinner medicine, always ask if NSAIDs are safe for you. Always read the medicine label and follow directions. Do not give these medicines to children under 6 months of age without direction from your child's healthcare provider. ?? Prescription pain medicine may be given. Ask how to take this medicine safely. ?? Surgery may be needed if a ureter is blocked. The ureter is the tube that takes urine from a kidney to the bladder. A blocked ureter can cause repeated kidney infections. How can I manage my symptoms? ?? Drink liquids as directed. You may need to drink extra liquids to help flush your kidneys and urinary system. Water is the best liquid to drink. Ask your healthcare provider how much liquid to drink each day and which liquids are best for you. ?? Urinate as soon as you feel the urge. This will help flush bacteria from your urinary system. Donot wait or hold your urine for too long. ?? Clean your genital area every day with soap and water. Wipe from front to back after you urinateor have a bowel movement. Wear cotton underwear. Fabrics such as nylon and polyester can stay damp.This can increase your risk for infection. Urinate within 15 minutes after you have sex. When should I seek immediate care? ?? You have a fever and chills. ?? You cannot stop vomiting. ?? You have severe pain in your abdomen, lower back, or sides. When should I contact my healthcare provider? ?? You continue to have a fever after you take antibiotics for 3 days. ?? You have pain when you urinate, even after treatment. ?? Your signs and symptoms return. ?? You have questions or concerns about your condition or care. CARE AGREEMENT: You have the right to help plan your care. Learn about your health condition and how it may be treated. Discuss treatment options with your healthcare providers to decide what care you want to receive. You always have the right to refuse treatment. The above information is an educational assistant teacher only. It is not intended as medical advice for individual conditions or treatments. Talk to your doctor, nurse or pharmacist before following any medical regimen to see if it is safe and effective for you. ?? Copyright [employer] 2019 Information is for End User's use only and may not be sold, redistributed or otherwise used for commercial purposes. All illustrations and images included in CareNotes?? are the copyrighted property of [employer] or [email or web address] documented in this encounter Medications at Time of Discharge Medication Sig Dispensed Refills Start Date End Date Cetirizine HCl (ZYRTEC PO) Take 10 mg by mouth once daily cephalexin (KEFLEX) 500 MG capsule Take 1 capsule by mouth 4 times daily for 10 days 40 capsule 07/26/2018 08/05/2018 levonorgestrel-ethiny l estradiol (LESSINA-28) 0.1-20 MG-MCG tabletIndications:Con traceptive Therapy Take 1 tablet by mouth once daily continuously Reasons: Control Treatment 3 packet 4 10/09/2017 10/10/2018 ondansetron (ZOFRAN) 4 MG tablet Take 1 tablet by mouth every 6 hours as needed for Nausea/Vomiting 10 tablet 07/26/2018 12/04/2018 raNITIdine (ZANTAC) 150 MG tablet Take 150 mg by mouth as needed 12/04/2018 sulfamethoxazole-trim ethoprim (BACTRIM DS) 800-160 MG tabletIndications:Uri nary tract infection without hematuria, site unspecified Take 1 tablet by mouth 2 times daily for 7 days 14 tablet 07/24/2018 07/31/2018 documented as of this encounter ED Notes * Mena Wade RN - 07/26/2018 1:10 AM CDT Pt to CT * Arniedaksha Rosa DO Keysha - 07/25/2018 10:23 PM CDT Provider contact with the patient: 07/25/2018 22:23 Consuelo London [id number] [facility] EMERGENCY DEPARTMENT History Chief Complaint Patient presents with ??? Pain Flank pt dx with UTI yesterday, has worsened and is worried about kidney infection. Pt has flank pain, fever/chills, and appears diaphoretic. HPI Comments: Consuelo London is a 37 year old female presenting to the ED with chief complaint ofworsening UTI. Patient diagnosed [facility] an [facility] yesterday with a UTI and was told to come to the ED if symptoms worsened. She states that symptoms have worsened today. She states that she has left flank pain greater than right. Associated with headache, nausea, and a fever of 103 at home. Denies any hematuria. She has had 2 doses of bactrim since diagnosis. She states that she takes Zyrtec and control daily. Denies any hx of frequent UTIs. PCP: Yvan Booth MD Past Medical History: Diagnosis Date ??? Abdominal [...] Thyroid Disease Mother Social History Social History ??? Marital status: Spouse name: N/A ??? Number of children: N/A ??? 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 Smoking status: Former Smoker Packs/day: 0.50 Types: Cigarettes ??? Smokeless tobacco: Never Used ??? Alcohol use No Comment: Occasional ??? Drug use: No ??? Sexual activity: Yes Partners: Male control/ protection: Pill Other Topics Concern ??? Special Diet No Social History Narrative Review of Systems Review of Systems Constitutional: Positive for fever. Negative for chills. HENT: Negative for sore throat. Eyes: Negative for blurred vision and photophobia. Respiratory: Negative for cough, shortness of breath and wheezing. Cardiovascular: Negative for chest pain and leg swelling. Gastrointestinal: Positive for nausea. Negative for abdominal pain, constipation, diarrhea and vomiting. Genitourinary: Positive for flank pain. Negative for dysuria, frequency and urgency. Musculoskeletal: Negative for falls and myalgias. Skin: Negative for rash. Neurological: Positive for headaches. Negative for dizziness, seizures and loss of consciousness. Psychiatric/Behavioral: Negative for depression and suicidal ideas. Physical Exam BP 120/63 Pulse 84 Temp 97.9 ??F (36.6 ??C) Resp 21 Ht 1.626 m (5' 4 ) Wt 79.4 kg (175 lb) SpO2 96% BMI 30.04 kg/m2 Physical Exam Constitutional: She is oriented to person, place, and time. She appears well- developed and well-nourished. HENT: Head: Normocephalic and atraumatic. Eyes: EOM are normal. Cardiovascular: Regular rhythm, normal heart sounds and intact distal pulses. Tachycardia present. No murmur heard. Pulmonary/Chest: Effort normal and breath sounds normal. No respiratory distress. Abdominal: Soft. She exhibits no distension. There is no tenderness. There is no rebound and no guarding. Musculoskeletal: Normal range of motion. Bilateral L1-L3 tenderness left greater than right Neurological: She is alert and oriented to person, place, and time. Skin: Skin is warm and dry. No rash noted. Psychiatric: She has a normal mood and affect. Her behavior is normal. Judgment and thought contentnormal. Nursing note and vitals reviewed. Medications Current Outpatient Prescriptions Medication Sig Dispense Refill ??? cephalexin (KEFLEX) 500 MG capsule Take 1 capsule by mouth 4 times daily for 10 days 40 capsule0 ??? Cetirizine HCl (ZYRTEC PO) Take 10 mg by mouth once daily ??? levonorgestrel-ethinyl estradiol (LESSINA-28) 0.1-20 MG-MCG tablet Take 1 tablet by mouth once daily continuously Reasons: Control Treatment 3 packet 4 ??? ondansetron (ZOFRAN) 4 MG tablet Take 1 tablet by mouth every 6 hours as needed for Nausea/Vomiting 10 tablet 0 ??? raNITIdine (ZANTAC) 150 MG tablet Take 150 mg by mouth as needed ??? sulfamethoxazole-trimethoprim (BACTRIM DS) 800-160 MG tablet Take 1 tablet by mouth 2 times daily for 7 days 14 tablet 0 Procedures Procedures ECG Interpretation ECG Interpretation Lab Interpretation Oxygen Saturation Interpretation The oxygen saturation level is: 98%. The patient was on Room Air for the saturation measurement. Oxygen saturation interpretation is Normal. Intervention(s) used: None. Hospital Encounter on 07/25/18 CBC W AUTO DIFFERENTIAL Result Value Ref Range WBC 12.4 (H) 4.4 - 10.7 x10E9/L WBC Corrected x10E9/L RBC 4.77 3.80 - 5.20 x10E12/L Hemoglobin 14.6 12.0 - 15.6 gm/dL Hematocrit 43.5 35.9 - 45.5 % MCV 91.2 80.7 - 98.3 fl MCH 30.6 26.7 - 34.0 pg MCHC 33.6 30.8 - 35.9 gm/dL Platelet Count 289 153 - 416 x10E9/L RDW-CV 13.3 12.1 - 14.9 % MPV 10.4 9.4 - 12.9 fl Neutrophils % 86.1 (H) 44.0 - 73.0 % Lymphocytes % 9.2 (L) 20.0 - 43.0 % Monocytes % 3.9 (L) 5.0 - 13.0 % Eosinophils % 0.0 0.0 - 6.0 % Basophils % 0.3 0.0 - 2.0 % Immature Granulocytes 0.5 0 - 1 % Neutrophil Absolute 10.69 (H) 2.01 - 7.14 x10E9/L Lymphocytes Absolute 1.14 1.07 - 3.94 x10E9/L Monocytes Absolute 0.48 0.26 - 1.07 x10E9/L Eosinophils Absolute 0.00 0 - 0.47 x10E9/L Basophils Absolute 0.04 0 - 0.08 x10E9/L Immature Granulocytes Absolute 0.06 0.00 - 0.06 x10E9/L nRBC Auto 0 /100 WBC COMPREHENSIVE METABOLIC PANEL Result Value Ref Range Glucose 105 74 - 106 mg/dL Sodium 135 (L) 136 - 145 mmol/L Potassium 3.8 3.5 - 5.1 mmol/L Chloride 103 98 - 107 mmol/L CO2 21 (L) 23 - 31 mmol/L Calcium 9.2 8.4 - 10.2 mg/dL Anion Gap 11 8 - 16 mmol/L BUN 7 7 - 18.7 mg/dL Creatinine 0.93 0.55 - 1.02 mg/dL Alkaline Phosphatase 52 40 - 150 U/L ALT 12 (L) 13 - 61 U/L AST 20 5 - 34 U/L Protein Total 8.4 (H) 6.4 - 8.3 gm/dL Albumin 4.3 3.5 - 5.2 gm/dL Bilirubin Total 0.2 0.2 - 1.0 mg/dL eGFR by MDRD >60 >60 mL/min/1.73m2 eGFR by MDRD >60 >60 mL/min/1.73m2 URINALYSIS REFLEX MICROSCOPIC REFLEX CULTURE Result Value Ref Range Color UA Yellow Straw, Yellow Clarity UA Slt Cloudy (Abnormal) Clear Glucose UA Negative Negative Bilirubin UA Negative Negative Ketone UA 2+ (Abnormal) Negative Specific Waldo UA 1.025 1.005 - 1.030 Blood UA 3+ (Abnormal) Negative pH UA 5.0 5.0 - 8.0 pH Protein UA 2+ (Abnormal) Negative Urobilinogen UA Negative Negative mg/dL Nitrite UA Negative Negative Leukocyte UA Negative Negative Urine Microscopy Urine microscopy to follow Reflex Status Culture not indicated HCG URINE QUAL POCT NOTIFICATION Result Value Ref Range Comment Notification Label Only - See Separate Report LACTIC ACID BLOOD Result Value Ref Range Lactic Acid 0.7 0.5 - 2.2 mmol/L LACTIC ACID BLOOD Result Value Ref Range Lactic Acid 0.7 0.5 - 2.2 mmol/L URINE MICROSCOPIC ONLY REFLEX TO CULTURE Result Value Ref Range Reflex Status Culture to follow RBC UA >100 (Abnormal) None Seen, 0-2, 3-5 # /hpf WBC UA 11-20 (Abnormal) None Seen, 0-5 # /hpf Bacteria UA Trace (Abnormal) None Seen Squamous Epithelial Cells 3-5 None Seen, 0-2, 3-5 /hpf Mucus UA 3+ /LPF HCG URINE QUALITATIVE - POCT (IP) INTERFACED Result Value Ref Range HCG Qual Urine Negative Negative CT RENAL STONE PROTOCOL (NO IV AND NO ORAL CONTRAST) PRELIMINARY REPORT [facility] Patient Name:??CONSUELO LONDON Age:??37?Patient MR NO:??[id number]?Date Of :?? Referring Doctor:??Rosa Stark, DO??Accession No:?? Patient Location:??Emergency Department ?? CLINICAL INDICATION:??LEFT FLANK PAIN. RECENTLY DIAGNOSED WITH UTI. SURGICAL HISTORY: CHOLECYSTECTOMY. CONTRAST: PROCEDURE DATE: CT ABDOMEN & PELVIS W/O IV C 1. Groundglass opacity within the visualized right middle lobe (image 3/1), raising concern for a nonspecific pneumonitis, incompletely imaged. 2. Minimal nonobstructing right nephrolithiasis. There is no abnormal dilatation of either renal collecting system or ureter. There is no ureterolithiasis. The bladder is unremarkable. 3. Liver, spleen, pancreas, adrenal glands and kidneys otherwise within normal limits. The gallbladder is absent. There is no biliary ductal dilatation. 4. Uterus and ovaries within normal limits. There are no abnormal adnexal masses. 5. No abnormality of the visualized bowel, noting duodenal diverticula. The appendix is normal. 6. No free intraperitoneal fluid. 7. No lymph node enlargement. 8. Abdominal aorta normal in caliber. [facility] physician contact - for MEDICAL STAFF USE ONLY: . Consuelo Motley??M.D. Electronically Signed Date Of Exam Request:07/26/2018 1:16:12 AM CDT Date & Time Of Report:??07/26/2018 1:41:29 AM CDT Progress Notes 10:26 PM Initial encounter. Plan for IVF, pain medication, antibiotics. Possible discharge if she is feeling better. 12:30 AM Rechecked pt who is feeling better at this time. Pt agrees with plan for CT scan. 2:27 AM Rechecked patient and updated her on results. Patient is feeling much better at this time and is agreeable with discharge home. 2:28 AM At this present time, a medical screening exam has been completed. It is determined that the patient does not have an emergency medical condition and is stable for discharge. All labs and test results were discussed with the patient. An opportunity was given for questions. The patient was feeling better and felt comfortable with discharge. I discussed with the patient the importance of fol lowing up with pcp as instructed. Patient verbalizes understanding of discharge instructions. Pt ismedically stable for d/c home at this time. Vitals prior to discharge: Blood pressure 114/57, pulse 84, temperature 97.9 ??F (36.6 ??C), resp. rate 23, height 1.626 m (5' 4 ), weight 79.4 kg (175 lb), SpO2 96 %, not currently . ED Course ED Course Medical Decision Making I have reviewed the: Previous Chart, Nursing Notes, Vitals. I have interpreted the following results: Labs, CT Scans and Oxygen Saturation. I have discussed the case with Family/Caregiver ( at bedside ). MDM: 37 yo F presents with left flank pain, fever. Recently diagnosed with UTI, prescribed bactrim.Urine improved today (no leukocytes), but now ketones and blood. CT to r/o stone. No ureteral stone, but non obstructing nephrolithiasis on right (not related to today's visit). Given IVF, toradol, zofran, rocephin. Improved after. Discharge with keflex (stop bactrim) and PCP follow up for pyelonephritis. Orders Placed This Encounter ??? CULTURE URINE ??? CT RENAL STONE PROTOCOL (NO IV AND NO ORAL CONTRAST) ??? CBC W AUTO DIFFERENTIAL ??? COMPREHENSIVE METABOLIC PANEL ??? URINALYSIS REFLEX MICROSCOPIC REFLEX CULTURE ??? HCG URINE QUAL POCT NOTIFICATION ??? LACTIC ACID BLOOD ??? URINE MICROSCOPIC ONLY REFLEX TO CULTURE ??? AND Linked Order Group ??? 0.9% NaCl injection 3 mL ??? 0.9% NaCl injection 1-10 mL ??? 0.9% NaCl IV Bolus ??? ketorolac (TORADOL) injection 15 mg ??? acetaminophen (TYLENOL) tablet 650 mg ??? cefTRIAXone (ROCEPHIN) 1,000 mg in 0.9% NaCl 50 mL IVPB ??? cephalexin (KEFLEX) 500 MG capsule ??? ondansetron (ZOFRAN) 4 MG tablet Diagnosis: Encounter Diagnoses Name Primary? Left flank pain ??? Fever, unspecified fever cause ??? Pyelonephritis New Medications: New Prescriptions CEPHALEXIN (KEFLEX) 500 MG CAPSULE Take 1 capsule by mouth 4 times daily for 10 days ONDANSETRON (ZOFRAN) 4 MG TABLET Take 1 tablet by mouth every 6 hours as needed for Nausea/Vomiting I have advised the patient to follow-up with: Yvan Booth MD [address] [id number] In 1 week Disposition: Discharged Follow-up Information Follow-up With Details Why Contact Info Yvan Booth MD In 1 week [address] [id number] User Date/Time Rosa Stark DO SunJuly 26, 2018 2:31 AM By signing my name below, I, Maday Valedz, attest that this documentation has been prepared under the direction and in the presence of Dr. Stark. Electronically Signed: Sydni Foster. 07/26/2018 2:43 AM I, Dr. Stark, personally performed the services described in this documentation. All medical recordentries made by the scribe were at my direction and in my presence. I have reviewed the chart and discharge instructions and agree that the record reflects my personal performance and is accurate andcomplete. Dr. Stark, 07/26/2018 2:43 AM * Mena Wade RN - 07/25/2018 10:03 PM CDT Pt arrives to ED w/ c/o bilat flank pain, nausea, and fever. Pt states she was diagnosed w/ UTI yesterday at other facility but fever got to 103 at home. Denies CP, SOB, cough. Pt is A&Ox4, calm and cooperative, able to speak in complete sentences unlabored but tachypneic, able to ambulate fromtriage to room unassisted w/ steady gait. documented in this encounter Plan of Treatment Not on file documented as of this encounter Procedures Procedure Name Priority Date/Time Associated Diagnosis Comments CT ABDOMEN PELVIS WO CONTRAST STAT 07/26/2018 1:14 AM CDT Left flank pain Fever, unspecified fever cause LACTIC ACID BLOOD Timed 07/26/2018 12: 16 AM CDT HCG URINE QUALITATIVE - POCT (IP) INTERFACED Routine 07/25/2018 11:21 PM CDT URINE MICROSCOPIC ONLY REFLEX TO CULTURE STAT 07/25/2018 11:15 PM CDT URINALYSIS REFLEX MICROSCOPIC REFLEX CULTURE STAT 07/25/2018 11:15 PM CDT CULTURE URINE STAT 07/25/2018 11:15 PM CDT HCG URINE QUAL POCT NOTIFICATION STAT 07/25/2018 10:01 PM CDT LACTIC ACID BLOOD STAT 07/25/2018 9:0 0 PM CDT CBC W AUTO DIFFERENTIAL STAT 07/25/2018 8:56 PM CDT COMPREHENSIVE METABOLIC PANEL STAT 07/25/2018 8:56 PM CDT documented in this encounter Results * CT RENAL STONE PROTOCOL (NO IV AND NO ORAL CONTRAST) (07/26/2018 1:14 AM CDT) Anatomical Region Laterality Modality Abdomen, Pelvis Computed Tomogra phy 07/26/2018 7:32 AM CDT Impressions 07/26/2018 7:34 AM CDT No acute abdominal or pelvic pathology. Faint groundglass opacities noted in the right middle lobe which may represent pneumonitis/pneumonia. Fatty infiltration of the liver. A preliminary report was furnished by [facility] on 07/26/2018 at 1:41 AM Reading [...] liver. A preliminary report was furnished by [facility] on 07/26/2018 at 1:41 AM Reading Radiologist: Jacques Cole MD on 07/26/2018 at 7:34 AM Rosa Stark DO CT ORDERABLES * LACTIC ACID BLOOD (07/26/2018 12:16 AM CDT) Lactic Acid 0.7 0.5 - 2.2 mmol/L 07/26/2018 12:[address] [facility] Blood BLOOD SPECIMEN / Unknown Venipuncture / Unknown 07/26/2018 12:16 AM CDT 07/26/2018 12:28 AM CDT Rosa Stark DO LAB - CHEMISTRY ORDE RABLES Performing Organization Address [facility]/ZIP Co de Phone Number [facility] [address] [place] [address] * HCG URINE QUALITATIVE - POCT (IP) INTERFACED (07/25/2018 11:21 PM CDT) HCG Qual Urine Negative Negative 07/25/2018 11:[address] [facility] Urine URINE / Unknown 07/25/2018 1 1:21 PM CDT 07/25/2018 11:24 PM CDT Rosa Stark DO LAB - POINT OF CARE ORDERABLES Performing Organization Address [facility] Co de Phone Number [facility] [address] [place] [phone] * CULTURE URINE (07/25/2018 11:15 PM CDT) Culture Urine <10,000 CFU/mL urogenital steven ROSELIA 07/27/2018 6:04 AM CDT [facility] MICROBIOLOGY Urine URINE SPECIMEN OBTAINED BY CLEAN CATCH PROCEDURE / Unknown Collection / Unknown 07/25/2018 11:15 PM CDT 07/25/2018 11:20 PM CDT Rosa Stark DO LAB - MICROBIOLOGY O RDERABLES Performing Organization Address City/[facility]/ZIP Co de Phone Number [facility] MICROBIOLOGY [address] [place] [address], [facility] [phone] * (ABNORMAL) URINE MICROSCOPIC ONLY REFLEX TO CULTURE (07/25/2018 11:15 PM CDT) Reflex Status Culture to follow 07/25/2018 11:[address] [facility] RBC UA >100(A) None Seen, 0-2, 3-5 # /hpf 07/25/2018 11:[address] [facility] WBC UA 11-20(A) None Seen, 0-5 # /hpf 07/25/2018 11:[address] [facility] Bacteria UA Trace(A) None Seen 07/25/2018 11:[address] [facility] Squamous Epithelial Cells 3-5 None Seen, 0-2, 3-5 /hpf 07/25/2018 11:[address] [facility] Mucus UA 3+ /LPF 07/25/2018 11:[address] [facility] Urine URINE SPECIMEN OBTAINED BY CLEAN CATCH PROCEDURE / Unknown Collection / Unknown 07/25/2018 11:15 PM CDT 07/25/2018 11:[address] [facility] - 07/25/2018 11:42 PM CDT Rosa Stark DO LAB - URINALYSIS ORD ERABLES [facility] [address] [place] [address] * (ABNORMAL) URINALYSIS REFLEX MICROSCOPIC REFLEX CULTURE (07/25/2018 11:15 PM CDT) Color UA Yellow Straw, Yellow 07/25/2018 11:[address] [facility] Clarity UA Slt Cloudy(A) Clear 07/25/2018 11:[address] [facility] Glucose UA Negative Negative 07/25/2018 11:[address] [facility] Bilirubin UA Negative Negative 07/25/2018 11:[address] [facility] Ketone UA 2+(A) Negative 07/25/2018 11:[address] [facility] Specific Waldo UA 1.025 1.005 - 1.030 07/25/2018 11:[address] [facility] Blood UA 3+(A) Negative 07/25/2018 11:[address] [facility] pH UA 5.0 5.0 - 8.0 pH 07/25/2018 11:[address] [facility] Protein UA 2+(A) Negative 07/25/2018 11:42 PM CDT [facility] Urobilinogen UA Negative Negative mg/dL 07/25/2018 11:[address] [facility] Nitrite UA Negative Negative 07/25/2018 11:[address] [facility] Leukocyte UA Negative Negative 07/25/2018 11:[address] [facility] Urine Microscopy Urine microscopy to follow 07/25/2018 11:[address] [facility] Reflex Status Culture not indicated 07/25/2018 11:[address] [facility] Urine URINE SPECIMEN OBTAINED BY CLEAN CATCH PROCEDURE / Unknown Collection / Unknown 07/25/2018 11:15 PM CDT 07/25/2018 11:[address] [facility] - 07/25/2018 11:42 PM CDT Rosa Stark DO LAB - URINALYSIS ORD ERABLES Performing Organization Address [facility]/ZIP Co de Phone Number [facility] [address] [place] [address] * HCG URINE QUAL POCT NOTIFICATION (07/25/2018 10:01 PM CDT) Comment Notification Label Only - See Separate Report 07/25/2018 11:[address] [facility] Urine URINE / Unknown 07/25/2018 1 0:01 PM CDT 07/25/2018 10:01 PM CDT Rosa Stark DO LAB - URINALYSIS ORD ERABLES Performing Organization Address [facility]/ZIP Co de Phone Number [facility] [address] [place] [address] * LACTIC ACID BLOOD (07/25/2018 9:00 PM CDT) Lactic Acid 0.7 0.5 - 2.2 mmol/L 07/25/2018 9:[address] [facility] Blood BLOOD SPECIMEN / Unknown Venipuncture / Unknown 07/25/2018 9:00 PM CDT 07/25/2018 9:04 PM CDT Rosa Stark DO LAB - CHEMISTRY ORDE RABLES Performing Organization Address City/[facility]/ZIP Co de Phone Number [facility] [address] [place] [address] * (ABNORMAL) COMPREHENSIVE METABOLIC PANEL (07/25/2018 8:56 PM CDT) [facility] Glucose 105 74 - 106 mg/dL 07/25/2018 9:28 PM CDT [facility] Sodium 135(L) 136 - 145 mmol/L 07/25/2018 9:28 PM CDT [facility] Potassium 3.8 3.5 - 5.1 mmol/L 07/25/2018 9:28 PM CDT [facility] Chloride 103 98 - 107 mmol/L 07/25/2018 9:28 PM CDT [facility] CO2 21(L) 23 - 31 mmol/L 07/25/2018 9:28 PM CDT [facility] Calcium 9.2 8.4 - 10.2 mg/dL 07/25/2018 9:[address] [facility] Anion Gap 11 8 - 16 mmol/L 07/25/2018 9:[address] [facility] BUN 7 7 - 18.7 mg/dL 07/25/2018 9:[address] [facility] Creatinine 0.93 0.55 - 1.02 mg/dL 07/25/2018 9:[address] [facility] Alkaline Phosphatase 52 40 - 150 U/L 07/25/2018 9:[address] [facility] ALT 12(L) 13 - 61 U/L 07/25/2018 9:28 PM CDT [facility] AST 20 5 - 34 U/L 07/25/2018 9:[address] [facility] Protein Total 8.4(H) 6.4 - 8.3 gm/dL 07/25/2018 9:[address] [facility] Albumin 4.3 3.5 - 5.2 gm/dL 07/25/2018 9:[address] [facility] Bilirubin Total 0.2 0.2 - 1.0 mg/dL 07/25/2018 9:[address] [facility] eGFR by MDRD >60 >60 mL/min/1.7 3m2 07/25/2018 9:[address] [facility] eGFR by MDRD >60 >60 mL/min/1.7 3m2 07/25/2018 9:[address] [facility] Blood BLOOD SPECIMEN / Unknown Venipuncture / Unknown 07/25/2018 8:56 PM CDT 07/25/2018 9:[address] [facility] - 07/25/2018 9:28 PM CDT Attention clinician: BUN Reference Range has changed. Rosa Keysha Stark DO LAB - CHEMISTRY [place] BLACKMAN [facility] [address] [place], [place] [phone] * (ABNORMAL) CBC W AUTO DIFFERENTIAL (07/25/2018 8:56 PM CDT) WBC 12.4(H) 4.4 - 10.7 x10E9/L 07/25/2018 9:[address] [facility] WBC Corrected x10E9/L 07/25/2018 9:[address] [facility] RBC 4.77 3.80 - 5.20 x10E12/L 07/25/2018 9:[address] [facility] Hemoglobin 14.6 12.0 - 15.6 gm/dL 07/25/2018 9:[address] [facility] Hematocrit 43.5 35.9 - 45.5 % 07/25/2018 9:[address] [facility] MCV 91.2 80.7 - 98.3 fl 07/25/2018 9:[address] [facility] MCH 30.6 26.7 - 34.0 pg 07/25/2018 9:[address] [facility] MCHC 33.6 30.8 - 35.9 gm/dL 07/25/2018 9:[address] [facility] Platelet Count 289 153 - 416 x10E9/L 07/25/2018 9:[address] [facility] RDW-CV 13.3 12.1 - 14.9 % 07/25/2018 9:[address] [facility] MPV 10.4 9.4 - 12.9 fl 07/25/2018 9:[address] [facility] Neutrophils % 86.1(H) 44.0 - 73.0 % 07/25/2018 9:[address] [facility] Lymphocytes % 9.2(L) 20.0 - 43.0 % 07/25/2018 9:[address] [facility] Monocytes % 3.9(L) 5.0 - 13.0 % 07/25/2018 9:[address] [facility] Eosinophils % 0.0 0.0 - 6.0 % 07/25/2018 9:[address] [facility] Basophils % 0.3 0.0 - 2.0 % 07/25/2018 9:[address] [facility] Immature Granulocytes 0.5 0 - 1 % 07/25/2018 9:[address] [facility] Neutrophil Absolute 10.69(H) 2.01 - 7.14 x10E9/L 07/25/2018 9:[address] [facility] Lymphocytes Absolute 1.14 1.07 - 3.94 x10E9/L 07/25/2018 9:[address] [facility] Monocytes Absolute 0.48 0.26 - 1.07 x10E9/L 07/25/2018 9:[address] [facility] Eosinophils Absolute 0.00 0 - 0.47 x10E9/L 07/25/2018 9:[address] [facility] Basophils Absolute 0.04 0 - 0.08 x10E9/L 07/25/2018 9:06 PM [facility] Immature Granulocytes Absolute 0.06 0.00 - 0.06 x10E9/L 07/25/2018 9:06 PM [facility] nRBC Auto 0 /100 WBC 07/25/2018 9:06 PM [facility] Blood BLOOD SPECIMEN / Unknown Venipuncture / Unknown 07/25/2018 8:56 PM CDT 07/25/2018 9:04 PM CDT Rosa Stark DO LAB - HEMATOLOGY ORD ERABLES Performing Organization Address City/State/[facility] Co de Phone Number [facility] [address] [place] [address] documented in this encounter Visit Diagnoses Diagnosis Left flank pain Abdominal pain, unspecified site Fever, unspecified fever cause Pyelonephritis Pyelonephritis, unspecified documented in this encounter Administered Medications Inactive Administered Medications - up to 3 most recent administrations Medication Order MAR Action Action Date Dose Rate Site 0.9% NaCl injection 1-10 mL 1-10 mL, Intracatheter, PRN, Other, peripheral line flush, Starting on Katy 07/25/18 at 2007, Until Sun07/26/18 at 0353, Flush peripheral IV catheter with 1-10 mL of normal saline before and after medications and prn to clear blood from the line or to verify patency. 0.9% NaCl injection 3 mL 3 mL, Intracatheter, EVERY 8 HOURS, 1095 doses, First dose on Katy 07/25/18 at 2200, Last dose on Sun07/25/19 at 1400, Flush peripheral IV catheter with 3 mL of normal saline every 8 hours. 0.9% NaCl IV Bolus 1,000 mL, at 983.61 mL/hr, Administer over 61 Minutes, ONCE, 1 dose, On [place]y 07/25/18 at 2300 $ New Bag/Syringe 07/25/2018 11:05 PM CDT 1,000 mL 983.61 mL/hr acetaminophen (TYLENOL) tablet 650 mg 650 mg, Oral, NOW, 1 dose, On [place]y 07/25/18 at 2245 $ Given 07/25/2018 11:05 PM CDT 650 mg cefTRIAXone (ROCEPHIN) 1,000 mg in 0.9% NaCl 50 mL IVPB 1,000 mg (1 g), at 100 mL/hr, Intravenous, NOW, 1 dose, On Katy 07/25/18 at 2245, Ceftriaxone can cause precipitation when administered with calcium-containing fluids, including lactated ringers. Flush lines with a compatible fluid, such as D5W or NS before and after ceftriaxone dose. Administration through separate lumens is acceptable. , Indication for anti-infective therapy: Documented infection, Site of anti-infective therapy: Urine/Genitourinary $ New Bag/Syringe 07/25/2018 11:14 PM CDT 1,000 mg 100 mL/hr ketorolac (TORADOL) injection 15 mg 15 mg, Intravenous, NOW, 1 dose, On [place]y 07/25/18 at 2245 $ Given 07/25/2018 11:05 PM CDT 15 mg documented in this encounter Active and Recently Administered Medications Times are shown in CDT. Scheduled Medication Order 07/24/2018 07/25/2018 07/26/2018 0.9% NaCl injection 3 mL(Linked Group 1) 3 mL, Intracatheter, EVERY 8 HOURS, 1095 doses, First dose on Katy 07/25/18 at 2200, Last dose on Sun07/25/19 at 1400, Flush peripheral IV catheter with 3 mL of normal saline every 8 hours. 2353 (Not Administered - Provider: Mena Wade, AMBROSE - Reason: IV Currently Infusing) 0.9% NaCl IV Bolus (COMPLETED) 1,000 mL, at 983.61 mL/hr, Administer over 61 Minutes, ONCE, 1 dose, On [place]y 07/25/18 at 2300 2305 ($ New Bag/Syringe - Provider: Mena Wade, AMBROSE) 0037 (Stopped - Provider: Mena Wade, RN) acetaminophen (TYLENOL) tablet 650 mg (COMPLETED) 650 mg, Oral, NOW, 1 dose, On Katy 07/25/18 at 2245 2305 ($ Given - Provider: Mena Wade, AMBROSE) cefTRIAXone (ROCEPHIN) 1,000 mg in 0.9% NaCl 50 mL IVPB (COMPLETED) 1,000 mg (1 g), at 100 mL/hr, Intravenous, NOW, 1 dose, On Katy 07/25/18 at 2245, Ceftriaxone can cause precipitation when administered with calcium-containing fluids, including lactated ringers. Flush lines with a compatible fluid, such as D5W or NS before and after ceftriaxone dose. Administration through separate lumens is acceptable. , Indication for anti-infective therapy: Documented infection, Site of anti-infective therapy: Urine/Genitourinary 2314 ($ New Bag/Syringe - Provider: Mena Wade, RN)2348 (Stopped - Provider: Mena Wade, AMBROSE) ketorolac (TORADOL) injection 15 mg (COMPLETED) 15 mg, Intravenous, NOW, 1 dose, On Katy 07/25/18 at 2245 2305 ($ Given - Provider: Mena Wade, RN) PRN Medication Order 07/24/2018 07/25/2018 07/26/2018 0.9% NaCl injection 1-10 mL(Linked Group 1) 1-10 mL, Intracatheter, PRN, Other, peripheral line flush, Starting on Katy 07/25/18 at 2007, Until Sun07/26/18 at 0353, Flush peripheral IV catheter with 1-10 mL of normal saline before and after medications and prn to clear blood from the line or to verify patency. Linked Groups Order Group 1: SALINE LOCK, INSERT AND MAINTAIN (CANCELED) Routine, CONTINUOUS, Starting on Katy 07/25/18 at 2015, Until Specified, New collection And 0.9% NaCl injection 3 mLJump to med 3 mL, Intracatheter, EVERY 8 HOURS, 1095 doses, First dose on Katy 07/25/18 at 2200, Last dose on Sun07/25/19 at 1400, Flush peripheral IV catheter with 3 mL of normal saline every 8 hours. And 0.9% NaCl injection 1-10 mLJump to med 1-10 mL, Intracatheter, PRN, Other, peripheral line flush, Starting on Katy 07/25/18 at 2006, Until Sun07/26/18 at 0353, Flush peripheral IV catheter with 1-10 mL of normal saline before and after medications and prn to clear blood from the line or to verify patency. documented in this encounter Care Teams Holistic Pulser Relationship Specialty Start Date End Date Jean Joy MD PCP - OBGYN 12/27/07 Yvan Booth MD [address] [place] [address] PCP - General 11/04/09 01/04/23 documented as of this encounter
--- OUTSIDE RECORDS SUMMARY | 2024-03-19 20:47 | XMS_ITS | Encounter Summary ---
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 Exam Encounter Details Date Type Department Care Team (Late st Contact Info) Description 02/08/2022 3:45 PM BONE CHAR OPERATOR Office Visit [facility] - WEBSITE PROGRAMMER [address] [place] [address], [address] [place] [phone] Jean Joy MD [address] [place] [phone] Pap smear, as part of routine [...] Sign Reading Time Taken Comments Blood Pressure 130/80 02/08/2022 3:32 PM BONE CHAR OPERATOR Pulse - - Temperature - - Respiratory Rate - - Oxygen Saturation - - Inhaled Oxygen Concentration - - Weight 93.3 kg (205 lb 11.2 oz) 02/08/2022 3:32 PM BONE CHAR OPERATOR Height 162.6 cm (5' 4 ) 02/08/2022 3:32 PM BONE CHAR OPERATOR Body Mass Index 35.31 02/08/2022 3:32 PM BONE CHAR OPERATOR documented in this encounter Functional Status Functional [...] Progress Notes * Jean Joy MD - 02/08/2022 3:47 PM CST Well Woman Yearly Exam (Premenopausal) HISTORY: Consuelo Darby is a 41 year old white female, Patient's last menstrual period was 02/01/2022 (approximate)., here for a Well Woman exam. Oldest in HS, youngest in K Patient does not have other gynecological issues or concerns. Last Pap: normal Last mammogram:patient has never had a mammogram Menses: no menstrual cycles - cont OCPs Contraception: OCP (estrogen/progesterone) History Sexual Activity: Social History Substance and Sexual Activity Sexual Activity Yes ??? Partners: Male ??? control/protection: Pill Other pertinent CONE BAKER MACHINE history: none Other pertinent history: Medical, Surgical, Family, and Social History Reviewed. Allergies reviewed. Review of Systems Pertinent items are noted in HPI EXAMINATION BP 130/80 (BP SITE: RIGHT ARM, BP POSITION: SITTING, BP CUFF SIZE: 11) Ht 5' 4 Wt 205 lb 11.2 oz General Appearance: alert, cooperative, no distress Breasts: symmetric, nontender, no masses or discharge Heart: regular rhythm, normal S1 and S2, without murmurs, gallops or rubs Abdomen: Soft without mass, non-tender Pelvic: Vulva and vagina appear normal. Bimanual exam reveals normal uterus and adnexa. Discharge: normal and physiologic ASSESSMENT Normal Heating Unit Installer Exam Patient Active Problem List: GERD (gastroesophageal reflux disease) PLAN See orders, medications, patient instructions. Breast self exam reviewed, patient encouraged to perform monthly. Mammogram indications discussed. STD screening was not indicated. CHAR OPERATOR documented in this encounter Plan of Treatment Not on file documented as of this encounter Procedures Procedure Name Priority Date/Time Associated Diagnosis Comments PAP IG RFLX HPV HR ASCUS RFLX 16/18/45 Routine 02/08/2022 4:10 PM BONE CHAR OPERATOR Pap smear, as part of routine gynecological examination documented in this encounter Results * PAP IG RFLX HPV HR ASCUS RFLX 16/18/45 (02/08/2022 4:10 PM BONE CHAR OPERATOR) Diagnosis [facility] ACCOUNT BILL Comment:NEGATIVE FOR INTRAEP ITHELIAL LESION OR MALIGNANCY. Specimen Adequacy [facility] ACCOUNT BILL Comment:Satisfactory for anny luation. No endocervical component is identified. Clinician Provided ICD10 [facility] ACCOUNT BILL Comment:Z01.419 Performed by [facility] ACCOUNT BILL Comment:Hernandez Shay totechnologist ([facility]) Comment . [facility] ACCOUNT BILL Note [facility] [...] UTERINE CERVIX / Unknown 02/08/2022 4:10 PM BONE CHAR OPERATOR 02/09/2022 Narrative [facility] ACCOUNT BILL - 02/14/2022 5:08 PM BONE CHAR OPERATOR Source.............Cervix;Endocervix LMP / Prev Treat...OUF=[id number] No. of containers..01 ThinPrep Vial Resulting Agency Comment Lab Testing performed at: [facility] [address] ??[place] [phone] Jean Joy MD LAB - PATHOLOGY/CYTO LOGY ORDERABLES Performing Organization Address City/State/[facility] Co de Phone Number [facility] ACCOUNT BILL [address] [place] [address] documented in this encounter Visit Diagnoses Diagnosis Pap smear, as part of routine gynecological examination- Primary Screening for malignant neoplasm of the cervix documented in this encounter Care Teams Bureau Director Relationship Specialty Start Date End Date Jean Joy MD PCP - OBGYN 12/27/07 Yvan Booth MD [address] [place] [phone] PCP - General 11/04/09 01/04/23 Jaden Thakur DO [address] [place] [id number] PCP - Attributed-[facility] STL 09/10/19 06/28/23 documented as of this encounter
--- OUTSIDE RECORDS SUMMARY | 2024-03-19 20:47 | XMS_ITS | Encounter Summary ---
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 [place] [address] Refill Request Social History Tobacco [...] on filedocumented in this encounter Care Teams Cashier Receptionist Relationship Specialty Start Date End Date Jean Joy MD PCP - OBGYN 12/27/07 Yvan Booth MD [address] [place] [phone] PCP - General 11/04/09 01/04/23 documented as of this encounter
--- OUTSIDE RECORDS SUMMARY | 2024-03-19 20:47 | XMS_ITS | Encounter Summary ---
Author Organization [facility] Address [address] [place] [address] Care Team Providers Care Vp Client Services Name Role Phone Jean Joy MD Unavailable [phone] Yvan Booth MD Primary Care Provider [phone] Jaden Thakur DO Unavailable [phone] Encounter Details Date Type Department Care Team (Latest Contact Info) Description 06/15/2022 Travel Social History Tobacco Use Types Packs/Day [...] on filedocumented in this encounter Care Teams Vp Client Services Relationship Specialty Start Date End Date Jean Joy MD PCP - OBGYN 12/27/07 Yvan Booth MD [address] [place] [phone] PCP - General 11/04/09 01/04/23 Jaden Thakur DO [address] [place] [id number] PCP - Attributed-[facility] STL 09/10/19 06/28/23 documented as of this encounter
--- OUTSIDE RECORDS SUMMARY | 2024-03-19 20:47 | XMS_ITS | Encounter Summary ---
Author Organization [facility] Address [address] [facility] [place] [address] Care Team Providers Care Automatic Bandsaw Tender Name Role Phone Jean Joy MD Unavailable [phone] Yvan Booth MD Primary Care Provider [phone] Reason for Visit * Reason Comments Refill Request Encounter Details Date Type Department Care Team (Late st Contact Info) Description 09/30/2017 Refill [facility] - CIRCUS RIDER [address] [facility] [address] [place] [phone] Jean Joy MD [address] [facility] [place] [address] Refill Request Social History Tobacco [...] filedocumented in this encounter Care Teams Automatic Bandsaw Tender Relationship Specialty Start Date End Date Jean Joy MD PCP - OBGYN 12/27/07 Yvan Booth MD [address] [place] [phone] PCP - General 11/04/09 01/04/23 documented as of this encounter
--- OUTSIDE RECORDS SUMMARY | 2024-03-19 20:47 | XMS_ITS | Encounter Summary ---
Author Organization [facility] Address [address] [facility] [place] [address] Care Team Providers Care Socket Puller Name Role Phone Jean Joy MD Unavailable [phone] Yvan Booth MD Primary Care Provider [phone] Jaden Thakur DO Unavailable [phone] Encounter Details Date Type Department Care Team (Latest Contact Info) Description 06/28/2022 7:09 AM CDT - 06/28/2022 11:59 PM CDT Hospital Encounter [facility] - Lab [facility] [place] [address] Discharge Disposition: Home or Self Care Social [...] breakfast 12/26/2022 Vitamin D3, cholecalciferol, 50 MCG (1999) tablet Take 1 (one) tablet by mouth once daily 01/05/2023 documented as of this encounter Plan of Treatment Not on file documented as of this encounter Visit Diagnoses Not on filedocumented in this encounter Care Teams Socket Puller Relationship Specialty Start Date End Date Jean Joy MD PCP - OBGYN 12/27/07 Yvan Booth MD [address] [place] [phone] PCP - General 11/04/09 01/04/23 Jaden Thakur DO [address] [place] [id number] PCP - Attributed-[facility] STL 09/10/19 06/28/23 documented as of this encounter
--- OUTSIDE RECORDS SUMMARY | 2024-03-19 20:47 | XMS_ITS | Encounter Summary ---
Author Organization [facility] Address [address] [place] [address] Care Team Providers Care High Wire Artist Name Role Phone Jean Joy MD Unavailable [phone] Yvan Booth MD Primary Care Provider [phone] Reason for Visit * Reason Comments Bladder infection Encounter Details Date Type Department Care Team (Late st Contact Info) Description 07/24/2018 4:20 PM CDT Office Visit [facility] AT [address] [address] Provider, [facility] Urinary tract infection without hematuria, site unspecified (Primary Dx); Antibiotic-induced yeast infection Social History [...] Sign Reading Time Taken Comments Blood Pressure 118/72 07/24/2018 3:55 PM CDT Pulse 101 07/24/2018 3:55 PM CDT Temperature 38 ??C (100.4 ??F) 07/24/2018 3:55 PM CD T Respiratory Rate 18 07/24/2018 3:55 PM CDT Oxygen Saturation 97% 07/24/2018 3:55 PM CDT Inhaled Oxygen Concentration - - Weight 79.4 kg (175 lb) 07/24/2018 3:55 PM CDT Height 160 cm (5' 3 ) 07/24/2018 3:55 PM CDT Body Mass Index 31 07/24/2018 3:55 PM CDT documented in this encounter Functional [...] Patient Instructions * Patient Instructions* David Leggett APRN-CNP - 07/24/2018 4:09 PM CDT -Take all medications as prescribed. -Push fluids, especially water. This also helps prevent future infections. -Urinate when you feel the urge. Do not hold your urine. Urinate as soon as you feel you have to. -Cranberry juice as been shown to promote healing, use at your discretion. -Make sure to always wipe from front to back after urinating. -If you are sexually active make sure to urinate Before AND After sex to help prevent bladder infections. -Avoid intercourse until your symptoms are resolved for one week. -Do not drink alcohol, caffeine, and citrus juices. These can irritate your bladder and increase your symptoms. Seek care (go to Urgent Care or ER) immediately if: ?? You are urinating very little or not at all. ?? You are vomiting. ?? You have a high fever with shaking chills. ?? You have side or back pain that gets worse. Contact your primary care doctor or SHIPPING WEIGHER if: ?? You have a fever. ?? You have white or yellow discharge from your vagina. ?? You do not feel better after 2 days of taking antibiotics. ?? You have questions or concerns about your condition or care. documented in this encounter Progress Notes * Oleksandr Hernandez L, LABOR OPERATOR-COTTAGE SUPERVISOR - 07/24/2018 4:11 PM CDT Subjective: Consuelo Darby is a 37 year old female who complains of dysuria, frequency, urgency, lower back ache for 2 days. Patient complains of nothing else. Patient denies headache, stomachache, vaginal discharge, cough, rhinitis, congestion, sorethroat. There is not any concern of sexual abuse. There is not a history of trauma to the genital area. Patient does not have a history of recurrent UTI. Patient does not have a history of pyelonephritis. Patients PCP is Yvan Booth MD Past Medical History: Diagnosis Date ??? Abdominal pain, right upper quadrant ??? GERD (gastroesophageal reflux disease) ??? History of hypertension gestational hypertension Family History Problem Relation Age of Onset ??? Cancer Maternal Grandfather Lung ??? Diabetes Maternal Grandfather ??? Diabetes Maternal Grandmother ??? Hypertension Mother ??? Thyroid Disease Mother Current Outpatient Prescriptions Medication Sig Dispense Refill ??? Cetirizine HCl (ZYRTEC PO) Take 10 mg by mouth once daily ??? fluconazole (DIFLUCAN) 150 MG tablet Take [...] daily for 7 days 14 tablet 0 No current facility-administered medications for this visit. Allergies Allergen Reactions ??? 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 Marital status: [...] No Social History Narrative Review of Systems Constitutional: Positive for fevers, Negative for fatigue, chills. Respiratory: Negative Cardiovascular: Negative Genitourinary:Positive for frequency and dysuria, Negative for nocturia, urinary incontinence, hesitancy, decreased stream and hematuria Neurological: Negative Objective: BP 118/72 Pulse 101 Temp 100.4 ??F (38 ??C) (Oral) Resp 18 Ht 1.6 m (5' 3 ) Wt 79.4 kg (175 lb) SpO2 97% BMI 31 kg/m2 Exam: General appearance: alert, cooperative, no distress Back: no deformity or tenderness. No CVA tenderness with palpation Lungs: breath sounds normal and symmetric; no rales or wheezes Heart: regular rhythm, normal S1 and S2, without murmurs, gallops or rubs Abdomen: soft without mass, non-tender, with normal bowel sounds. No suprapubic tenderness with palpation Neurologic: mental status normal; alert and oriented X 3; cranial nerves II - XII are grossly intact Assessment: Encounter Diagnoses Name Primary? Urinary tract infection without hematuria, site unspecified Yes ??? Antibiotic-induced yeast infection Plan: 1. Maintain adequate hydration 2. Follow up if symptoms not improving, and prn. 3. Referral placed for PCP if none on file -Take all medications as prescribed. -Push fluids, especially water. This also helps prevent future infections. -Urinate when you feel the urge. Do not hold your urine. Urinate as soon as you feel you have to. -Cranberry juice as been shown to promote healing, use at your discretion. -Make sure to always wipe from front to back after urinating. -If you are sexually active make sure to urinate Before AND After sex to help prevent bladder infections. -Avoid intercourse until your symptoms are resolved for one week. -Do not drink alcohol, caffeine, and citrus juices. These can irritate your bladder and increase your symptoms. Seek care (go to Urgent Care or ER) immediately if: ?? You are urinating very little or not at all. ?? You are vomiting. ?? You have a high fever with shaking chills. ?? You have side or back pain that gets worse. Contact your primary care doctor or SHIPPING WEIGHER if: ?? You have a fever. ?? You have white or yellow discharge from your vagina. ?? You do not feel better after 2 days of taking antibiotics. ?? You have questions or concerns about your condition or care. Orders Placed This Encounter ??? CULTURE URINE ??? URINALYSIS AUTO - POINT OF CARE (AMB) STL ??? sulfamethoxazole-trimethoprim (BACTRIM DS) 800-160 MG tablet Sig: Take 1 tablet by mouth 2 times daily for 7 days Dispense: 14 tablet Refill: 0 ??? fluconazole (DIFLUCAN) 150 MG tablet Sig: Take 1 tablet by mouth once for 1 dose Dispense: 1 tablet Refill: 0 Recent Results (from the past 24 hour(s)) URINALYSIS AUTO - POINT OF CARE (AMB) STL Collection Time: 07/24/18 12:00 AM Result Value Ref Range Clarity UA POCT cloudy Color UA POCT yellow Leukocyte UA 70 Negative Nitrite UA POCT neg Negative Urobilinogen UA 0.2 0.1 - 1.0 Protein UA POCT trace Negative pH UA 5.0 5.0 - 8.0 pH units Blood UA 3+ Negative Specific [place] UA POCT 1.015 1.002 - 1.030 Ketone UA neg Negative Bilirubin UA POCT small Negative Glucose UA neg Negative Expiration Date [id number] Lot # [id number] QC Verified Yes Yes documented in this encounter Plan of Treatment Not on file documented as of this encounter Procedures Procedure Name Priority Date/Time Associated Diagnosis Comments CULTURE URINE Routine 07/24/2018 4:09 PM CDT Urinary tract infection without hematuria, site unspecified URINALYSIS AUTO - POINT OF CARE (AMB) STL Routine 07/24/2018 Urinary tract infection without hematuria, site unspecified documented in this encounter Results * CULTURE URINE (07/24/2018 4:09 PM CDT) Urine Culture Routine Final report [facility] ACCOUNT BILL Result 1 [facility] ACCOUNT BILL Comment: Mixed urogenital steven 10,000-25,000 colony forming units per mL Urine URINE SPECIMEN OBTAINED BY CLEAN CATCH PROCEDURE / Unknown 07/24/2018 4:09 PM CDT 07/24/2018 Narrative Resulting Agency Comment Lab Testing performed at: [facility] [address] ??[facility] [phone] David Leggett APRN-COTTAGE SUPERVISOR LAB - MICRO BIOLOGY ORDERABLES [facility] ACCOUNT BILL [address] [place] [address] * URINALYSIS AUTO - POINT OF CARE (AMB) STL (07/24/2018) Clarity UA POCT cloudy Color UA POCT yellow Leukocyte UA 70 Negative Nitrite UA POCT neg Negative Urobilinogen UA 0.2 0.1 - 1.0 Protein UA POCT trace Negative pH UA 5.0 5.0 - 8.0 pH units Blood UA 3+ Negative Specific [place] UA POCT 1.015 1.002 - 1.030 Ketone UA neg Negative Bilirubin UA POCT small Negative Glucose UA neg Negative Expiration Date [id number] Lot # [id number] QC Verified Yes Yes Urine URINE / Unknown 07/24/2018 David Leggett APRN-COTTAGE SUPERVISOR LAB - POINT OF CARE ORDERABLES documented in this encounter Visit Diagnoses Diagnosis Urinary tract infection without hematuria, site unspecified- Primary Antibiotic-induced yeast infection documented in this encounter Care Teams High Wire Artist Relationship Specialty Start Date End Date Jean Joy MD PCP - OBGYN 12/27/07 Yvan Booth MD [address] [place] [id number] PCP - General 11/04/09 01/04/23 documented as of this encounter
--- OUTSIDE RECORDS SUMMARY | 2024-03-19 20:47 | XMS_ITS | Encounter Summary ---
Author Organization [facility] Address [address] [facility] [place] [address] Care Team Providers Care Trauma Registrar Name Role Phone Jean Joy MD Unavailable [phone] Yvan Booth MD Primary Care Provider [phone] Jaden Thakur DO Unavailable [phone] Encounter Details Date Type Department Care Team (Latest Contact Info) Description 10/13/2020 Travel Social History Tobacco Use Types Packs/Day [...] have Coronavirus / COVID-19? No / Unsure 10/13/2020 6:32 PM CDT documented as of this encounter [...] on filedocumented in this encounter Care Teams Trauma Registrar Relationship Specialty Start Date End Date Jean Joy MD PCP - OBGYN 12/27/07 Yvan Booth MD [address] [place] [phone] PCP - General 11/04/09 01/04/23 Jaden Thakur DO [address] [place] [id number] PCP - Attributed-[facility] EHP STL 09/10/19 06/28/23 documented as of this encounter
--- OUTSIDE RECORDS SUMMARY | 2024-03-19 20:47 | XMS_ITS | Encounter Summary ---
Author Organization [facility] Address [address] [place] [address] Care Team Providers Care Rivet Tapping Machine Operator Name Role Phone Jean Joy MD Unavailable [phone] Yvan Booth MD Primary Care Provider [phone] Jaden Thakur DO Unavailable [phone] Reason for Visit * Reason Onset Date Comments COVID-19 IMMUNIZATION/INJECTION 03/25/2020 Encounter Details Date Type Department Care Team (Latest Contact Info) Description 03/25/2020 7:40 AM DATA PROGRAMMER Clinical Support [facility] COVID Vaccination 2nd Floor [address] [place] [id number] Need for vaccination Social History Tobacco Use Types Packs/Day Years [...] this encounter Patient Instructions * Patient Instructions* Adarsh Weaver RN - 03/25/2020 7:34 AM DATA PROGRAMMER Images from the original note were not included. Vaccine recipients are encouraged to enroll in the [facility] V-SAFE program for post vaccination monitoring. Sign up with your smartphone's browser at [employer].cdc.gov or Aim your smartphone's camera at this code. PROGRAMMER documented in this encounter Progress Notes * Adarsh Weaver RN - 03/25/2020 7:33 AM CST COVID screening checklist was reviewed with the patient. The Information sheet was given prior to administration. Injection site aseptically cleansed and injection given per Immunization(s) protocol.See Imm/Injections activity for details. PROGRAMMER documented in this encounter Plan of Treatment Not on file documented as of this encounter Visit Diagnoses Diagnosis Need for vaccination- Primary Need for prophylactic vaccination and inoculation against unspecified single disease documented in this encounter Care Teams Rivet Tapping Machine Operator Relationship Specialty Start Date End Date Jean Joy MD PCP - OBGYN 12/27/07 Yvan Booth MD [address] [place] [id number] PCP - General 11/04/09 01/04/23 Jaden Thakur DO [address] [place] [id number] PCP - Attributed-[facility] EHP STL 09/10/19 06/28/23 documented as of this encounter
--- OUTSIDE RECORDS SUMMARY | 2024-03-19 20:47 | XMS_ITS | Encounter Summary ---
Author Organization [facility] Address [address] [facility] [place] [address] Care Team Providers Care Agricultural Production Engineer Name Role Phone Jean Joy MD Unavailable [phone] Yvan Booth MD Primary Care Provider [phone] Jaden Thakur DO Unavailable [phone] Encounter Details Date Type Department Care Team (Latest Contact Info) Description 08/10/2022 Travel Social History Tobacco Use Types Packs/Day [...] on filedocumented in this encounter Care Teams Agricultural Production Engineer Relationship Specialty Start Date End Date Jean Joy MD PCP - OBGYN 12/27/07 Yvan Booth MD [address] [place] [phone] PCP - General 11/04/09 01/04/23 Jaden Thakur DO [address] [place] [id number] PCP - Attributed-[facility] EHP STL 09/10/19 06/28/23 documented as of this encounter
--- OUTSIDE RECORDS SUMMARY | 2024-03-19 20:47 | XMS_ITS | Encounter Summary ---
Author Organization [facility] Address [address] [facility] [place] [address] Care Team Providers Care Cupola Hoist Operator Name Role Phone Jean Joy MD Unavailable [phone] Yvan Booth MD Primary Care Provider [phone] Jaden Thakur DO Unavailable [phone] Encounter Details Date Type Department Care Team (Latest Contact Info) Description 08/10/2022 7:07 AM CDT - 08/10/2022 11:59 PM CDT Hospital Encounter [facility] - Lab [facility] [place] [address] Discharge Disposition: Home or Self Care Social [...] on filedocumented in this encounter Care Teams Cupola Hoist Operator Relationship Specialty Start Date End Date Jean Joy MD PCP - OBGYN 12/27/07 Yvan Booth MD [address] [place] [phone] PCP - General 11/04/09 01/04/23 Jaden Thakur DO [address] [place] [address] PCP - Attributed-[facility] EHP STL 09/10/19 06/28/23 documented as of this encounter
--- OUTSIDE RECORDS SUMMARY | 2024-03-19 20:47 | XMS_ITS | Encounter Summary ---
Author Organization [facility] Address [address] [facility] [place] [address] Care Team Providers Care Transport Technician Name Role Phone Jean Joy MD Unavailable [phone] Yvan Booth MD Primary Care Provider Reason for Visit * Reason Comments Refill Request Encounter Details Date Type Department Care Team (Late st Contact Info) Description 10/10/2018 Refill [facility] - AEROLOGIST [address] [facility] [address] [place] [id number] Jean Joy MD [address] [facility] [place] [address] Refill Request Social History Tobacco [...] on filedocumented in this encounter Care Teams Transport Technician Relationship Specialty Start Date End Date Jean Joy MD PCP - OBGYN 12/27/07 Yvan Booth MD [address] [place] [phone] PCP - General 11/04/09 01/04/23 documented as of this encounter
--- OUTSIDE RECORDS SUMMARY | 2024-03-19 20:48 | XMS_ITS | Encounter Summary ---
Author Organization [facility] Address [address] [facility] [place] [address] Care Team Providers Care Transplant Surgeon Name Role Phone Jean Joy MD Unavailable [phone] Yvan Booth MD Primary Care Provider [phone] Reason for Visit * Reason Comments Telegraph Mechanic Routine Exam Encounter Details Date Type Department Care Team (Late st Contact Info) Description 01/24/2011 2:00 PM HEALTH SCIENCE SPECIALIST Office Visit [facility] Medical [facility] - DEVELOPMENT ASSISTANT [address] [facility] [address] [place] [address] Jean Joy MD [address] [facility] [address] [place] [address] Routine gynecological examination (Primary Dx) Social History Tobacco Use Types Packs/Day Years Used Date Smoking Tobacco: Never Assessed Sex and Gender Information Value Date Recorded Sex Assigned at Not on file Gender Identity Not on file Sexual Orientation Not on file documented as of this encounter Last Filed Vital Signs Vital Sign Reading Time Taken Comments Blood Pressure 110/70 01/24/2011 2:03 PM HEALTH SCIENCE SPECIALIST Pulse - - Temperature - - Respiratory Rate - - Oxygen Saturation - - Inhaled Oxygen Concentration - - Weight 69.9 kg (154 lb) 01/24/2011 2:03 PM HEALTH SCIENCE SPECIALIST Height - - Body Mass Index - - documented in this encounter Progress Notes * Jean Joy MD - 01/24/2011 2:41 PM CST Well Woman Yearly Exam (Premenopausal) HISTORY: Consuelo Darby is a 30 y.o. white female, Patient's last menstrual period was 01/05/2011., here for a Well Woman exam. Patient does not have other gynecological issues or concerns. Last Pap: normal Last mammogram:patient has never had a mammogram Menses: regular monthly cycle without intermenstrual spotting. Contraception: OCP (estrogen/progesterone) History Sexual Activity: History Sexual Activity ??? Sexually Active: Not on file Other pertinent IMMERSION METAL CLEANER history: none Other pertinent history: Medical, Surgical, Family, and Social History Reviewed. Allergies reviewed. Review of Systems Pertinent items are noted in HPI EXAMINATION BP 110/70 Wt 154 lb General Appearance: alert, cooperative, no distress Breasts: symmetric, nontender, no masses or discharge Heart: regular rhythm, normal S1 and S2, without murmurs, gallops or rubs Abdomen: soft without mass, non-tender, with normal bowel sounds Pelvic: Vulva and vagina appear normal. Bimanual exam reveals normal uterus and adnexa. Discharge: normal and physiologic ASSESSMENT Normal healthy female. Patient Active Problem List Diagnoses (none) - all problems resolved or deleted PLAN See orders, medications, patient instructions. Breast self exam reviewed, patient encouraged to perform monthly. Mammogram indications discussed. STD screening was not indicated. TH SCIENCE SPECIALIST documented in this encounter Plan of Treatment Not on file documented as of this encounter Procedures Procedure Name Priority Date/Time Associated Diagnosis Comments PAP IG LB RFLX HPV HR ALL Routine 01/24/2011 10:34 AM HEALTH SCIENCE SPECIALIST Routine gynecological examination documented in this encounter Results * PAP IG REFLX HPV ALL PTH (PO REF LAB) (01/24/2011 10:34 AM HEALTH SCIENCE SPECIALIST) Diagnosis [facility] ACCOUNT BILL Comment:NEGATIVE FOR INTRAEP ITHELIAL LESION AND MALIGNANCY. Specimen Adequacy [facility] ACCOUNT BILL Comment: Satisfactory for evaluation. ??Endocervical and/or squamous metaplastic cells (endocervical component) are present. Clinician Provided ICD9 [facility] ACCOUNT BILL Comment:V72.31 ; Routine screening technician ecological examination Performed by [facility] ACCOUNT BILL Comment:Lynette Terry, Automotive Diagnostic Technician (ASC) Comment . [facility] ACCOUNT BILL Note [...] PAPANICOLAOU TECHNIQUE / Unknown 01/24/2011 10:34 AM HEALTH SCIENCE SPECIALIST 01/28/2011 9:14 AM HEALTH SCIENCE SPECIALIST Narrative [facility] ACCOUNT BILL - 01/31/2011 4:17 PM HEALTH SCIENCE SPECIALIST No. of containers..01 CYTYC Thin Prep Vial Resulting Agency Comment [facility] [place] [address] [facility] ??[place] [phone] Jean Joy MD LAB - PATHOLOGY/CYTO LOGY ORDERABLES [facility] ACCOUNT BILL documented in this encounter Visit Diagnoses Diagnosis Routine gynecological examination- Primary documented in this encounter Care Teams Transplant Surgeon Relationship Specialty Start Date End Date Jean Joy MD PCP - OBGYN 12/27/07 Yvan Booth MD [address] [place] [address] PCP - General 11/04/09 01/04/23 documented as of this encounter
--- OUTSIDE RECORDS SUMMARY | 2024-03-19 20:48 | XMS_ITS | Encounter Summary ---
Author Organization [facility] Address [address] [address] Care Team Providers Care Composition Board Press Operator Name Role Phone Jean Joy MD Unavailable [phone] Yvan Booth MD Primary Care Provider [phone] Reason for Visit * Reason Comments Pain Epigastric Pt with epigastric p ain x 5 days C/O nausea denies SOB. Reports that pain radiates through to her back, and into her left shoulder. Encounter Details Date Type Department Care Team (Late st Contact Info) Description 07/07/2013 9:28 PM CDT - 07/08/2013 1:29 AM CDT Emergency ER at [facility] [address] [place], [place] [id number] Arturo Cason MD [address] [place] [address] EMERGENCY DEPT [place], [place] [id number] Chest wall pain (Primary Dx); Chest pain Discharge Disposition: Home or Self Care Social History Tobacco Use Types Packs/Day Years Used Date Smoking Tobacco: Every Day Cigarettes Smokeless Tobacco: Never Alcohol Use Standard Drinks/Week Comments Yes 0 (1 standard drink = 0.6 oz pur e alcohol) Occasional Sex and Gender Information Value Date Recorded Sex Assigned at Not on file Gender Identity Not on file Sexual Orientation Not on file documented as of this encounter Last Filed Vital Signs Vital Sign Reading Time Taken Comments Blood Pressure 127/78 07/08/2013 1:28 AM CDT Pulse 78 07/08/2013 1:28 AM CDT Temperature 37.1 ??C (98.7 ??F) 07/08/2013 1:16 AM CD T Respiratory Rate 15 07/08/2013 1:16 AM CDT Oxygen Saturation 99% 07/08/2013 1:28 AM CDT Inhaled Oxygen Concentration - - Weight - - Height - - Body Mass Index - - documented in this encounter Discharge Instructions * Discharge Instructions* Arturo Cason MD - 07/08/2013 1:12 AM CDT Images from the original note were not included. Chest Wall Pain Chest wall pain is pain in or around the bones and muscles of your chest. It may take up to 6 weeksto get better. It may take longer if you must stay physically active in your work and activities. CAUSES Chest wall pain may happen on its own. However, it may be caused by: ?? A viral illness like the flu. ?? Injury. ?? Coughing. ?? Exercise. ?? Arthritis. ?? Fibromyalgia. ?? Shingles. HOME CARE INSTRUCTIONS ?? Avoid overtiring physical activity. Try not to strain or perform activities that cause pain. This includes any activities using your chest or your abdominal and side muscles, especially if heavy weights are used. ?? Put ice on the sore area. ?? Put ice in a plastic bag. ?? Place a towel between your skin and the bag. ?? Leave the ice on for 15-20 minutes per hour while awake for the first 2 days. ?? Only take [id number] or prescription medicines for pain, discomfort, or fever as directed by your caregiver. SEEK IMMEDIATE MEDICAL CARE IF: ?? Your pain increases, or you are very uncomfortable. ?? You have a fever. ?? Your chest pain becomes worse. ?? You have new, unexplained symptoms. ?? You have nausea or vomiting. ?? You feel sweaty or lightheaded. ?? You have a cough with phlegm (sputum), or you cough up blood. MAKE SURE YOU: ?? Understand these instructions. ?? Will watch your condition. ?? Will get help right away if you are not doing well or get worse. Document Released: 02/26/2006 Document Revised: 05/20/2012 Document Reviewed: 10/23/2011 ExitCare?? Patient Information ??2013 [email or web address]. * Discharge Instructions* Document, Scanned - 07/08/2013 8:48 PM CDT documented in this encounter Medications at Time of Discharge Medication Sig Dispensed Refills Start Date End Date Cetirizine HCl (ZYRTEC PO) Take 10 mg by mouth once daily levonorgestrel-ethinyl estradiol (LESSINA-28) 0.1-20 MG-MCG tablet Take 1 Tab by mouth once daily. 3 Packet 3 05/28/2013 02/20/2014 naproxen (NAPROSYN) 500 MG tablet Take 1 Tab by mouth 2 times daily as needed for Pain. 20 Tab 0 07/08/2013 02/20/2014 documented as of this encounter Procedure Notes * Document, Scanned - 07/08/2013 10:10 AM CDTAssociated Order(s): EKG 12-LEAD * Document, Scanned - 07/08/2013 7:06 AM CDTAssociated Order(s): EKG 12-LEAD documented in this encounter ED Notes * Arturo Cason MD - 07/07/2013 10:07 PM CDT Provider contact with the patient: 07/07/2013 22:07 Consuelo Darby [id number] [facility] EMERGENCY DEPARTMENT History Chief Complaint Patient presents with ??? Pain Epigastric Pt with epigastric pain x 5 days C/O nausea denies SOB. Reports that pain radiates through to her back, and into her left shoulder. Chief complaint narrative was entered by triage nurse, not by physician. HPI Comments: 10:07 PM Consuelo Darby, a 32 y.o. female presents to the ER c/o epigastric pain with radiation into L shoulder onset 5 days ago. Pt report exacerbating factor of deep inspiration, laying flat, eating, and movement of shoulder to the side. Pt states the first pain started in the epigastric region and sort of feels like a gallbladder pain even though I do not have my GB anymore. Pt reports pain no longer in the epigastric region and only in the L shoulder with pain radiation into L sided chest with deep inspiration. Pt states she is breathing shallowly but denies SOB. Associated sx of subjective fever, chills. Denies vomiting, palpitations, leg swelling or pain, dizziness, focal weakness, numbness, rash, diarrhea, constipation, dysuria, hematuria, hematochezia, vaginal bleeding, vaginal discharge. Pt rates pain 5/10. Pt is on BC pills. Pt is sexually active with 1 male partner, her , and she states they use condoms some times. PMHx: GERD FMHx: denies heart disease under 40 SHx: + tobacco (0.5 PPD), occasional EtOH PSHx: C section, colonoscopy, laparoscopic cholecystectomy ALL: reviewed PCP: Yvan Kim The history is provided by the patient. This is a new problem. The current episode started more than 2 days ago (5 days ago). The problem occurs constantly. The problem has not changed since onset.The pain is at a severity of 5/10. The pain is moderate. The symptoms are localized to the left shoulder, chest and abdomen.Associated symptoms include abdominal pain (epigastric). Pertinent negatives include no chest pain, no headaches and no shortness of breath. The symptoms are aggravated by eating(Laying flat, deep inspiration, moving L shoulder to side). Nothing relieves the symptoms. She has tried nothing for the symptoms. The treatment provided no relief. Past Medical History Diagnosis Date ??? GERD (gastroesophageal reflux disease) ??? Abdominal pain, right upper quadrant Past Surgical History Procedure Date ??? section ??? Colonoscopy ??? Cholecystectomy, laparoscopic 02/22/2012 N/A; LAPAROSCOPIC CHOLECYSTECTOMY SINGLE INCISION ??? Cholecystectomy Family History Problem Relation Age of Onset ??? Cancer Maternal Grandfather Lung ??? Diabetes Maternal Grandfather ??? Diabetes Maternal Grandmother ??? Hypertension Mother ??? Thyroid Disease Mother History Social History ??? Marital Status: Spouse Name: N/A Number of Children: N/A ??? 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 Smoking status: Current Every Day Smoker -- 0.5 packs/day Types: Cigarettes ??? Smokeless tobacco: Never Used ??? Alcohol Use: 0.0 oz/week 0-2 Cans of beer per week Occasional ??? Drug Use: No ??? Sexually Active: Yes -- Male partner(s) Control/ Protection: Pill Other Topics Concern ??? Special Diet No Social History Narrative ??? No narrative on file Review of Systems Review of Systems Constitutional: Positive for chills. Fever: subjective. HENT: Negative for congestion, sore throat and neck pain. Eyes: Negative. Negative for blurred vision. Respiratory: Negative for cough and shortness of breath. Cardiovascular: Negative for chest pain and leg swelling. Gastrointestinal: Positive for nausea and abdominal pain (epigastric). Negative for vomiting, diarrhea, constipation and blood in stool. Genitourinary: Negative for dysuria, urgency, frequency and hematuria. Musculoskeletal: Positive for joint pain (pain radiation into L shoulder). Negative for back pain. Skin: Negative for rash. Neurological: Negative for dizziness, tingling, sensory change, focal weakness, loss of consciousness, weakness and headaches. Psychiatric/Behavioral: Negative for substance abuse. All other systems reviewed and are negative. Physical Exam BP 147/73 Pulse 103 Temp 98.8 ??F Resp 18 SpO2 99% Physical Exam Nursing note and vitals reviewed. Constitutional: She is oriented to person, place, and time and well-developed, well-nourished, and in no distress. No distress. HENT: Head: Normocephalic and atraumatic. Mouth/Throat: Oropharynx is clear and moist. No oropharyngeal exudate. Eyes: Conjunctivae normal are normal. Pupils are equal, round, and reactive to light. Right eye exhibits no discharge. Left eye exhibits no discharge. No scleral icterus. Neck: Normal range of motion. Neck supple. No tracheal deviation present. Cardiovascular: Normal rate, regular rhythm and normal heart sounds. Exam reveals no gallop and no friction rub. No murmur heard. Pulmonary/Chest: Effort normal and breath sounds normal. No stridor. No respiratory distress. She has no wheezes. She has no rales. She exhibits no tenderness. Abdominal: Soft. Bowel sounds are normal. She exhibits no distension and no mass. There is no tenderness. There is no rebound and no guarding. Genitourinary: Negative CVA tenderness Musculoskeletal: Normal range of motion. She exhibits no edema and no tenderness. Passive ROM of L shoulder mildly recreates symptoms. Neurological: She is alert and oriented to person, place, and time. She exhibits normal muscle tone. Coordination normal. GCS score is 15. Skin: Skin is warm and dry. No rash noted. She is not diaphoretic. No erythema. No pallor. Psychiatric: Mood, memory, affect and judgment normal. Medications Current Outpatient Prescriptions Medication Sig Dispense Refill ??? naproxen (NAPROSYN) 500 MG tablet Take 1 Tab by mouth 2 times daily as needed for Pain. 20 Tab 0 ??? Cetirizine HCl (ZYRTEC PO) Take by mouth. ??? levonorgestrel-ethinyl estradiol (LESSINA-28) 0.1-20 MG-MCG tablet Take 1 Tab by mouth once daily. 3 Packet 3 Procedures Procedures EKG Interpretation Clinical Impression: non-specific EKG. Rhythm: normal sinus. Rate: normal. Heart rate:81. Ectopy: none. Blocks: none. Chancellor: normal. T-Waves: normal. EKG date completed: 07-07-2013 EKG time completed: ECG Rhythm Interpretation Lab Interpretation Oxygen Saturation Interpretation The oxygen saturation level is: 100%. The patient was on Room Air for the saturation measurement. Measurement frequency: Spot Check. Oxygen saturation interpretation is Normal. Intervention(s) used: None. Results for orders placed during the hospital encounter of 07/07/13 CBC W AUTO DIFFERENTIAL Component Value Range WBC 11.6 (*) 4.4-10.7 x10^9/L RBC 4.40 3.80-5.20 x10^12/L Hgb 13.8 12.0-15.6 gm/dL HCT 39.0 35.9-45.5 % MCV 88.6 80.7-98.3 fl MCH 31.4 26.7-34.0 pg MCHC 35.4 30.8-35.9 gm/dL Plt Ct 284 153-416 x10^9/L RDW-CV 12.8 12.1-14.9 % MPV 10.4 9.4-12.9 fl Neutro 72.3 44.0-73.0 % Lymph 19.8 (*) 20.0-43.0 % [place] 7.0 5.0-13.0 % Eos 0.4 0.0-6.0 % Baso 0.3 0.0-2.0 % Immature Grans 0.2 0-1 % Neutro Abs 8.36 (*) 2.01-7.14 x10^9/L Lymph Abs 2.29 1.07-3.94 x10^9/L [place] Abs 0.81 0.26-1.07 x10^9/L Eosin Abs 0.05 0-0.47 x10^9/L Baso Abs 0.04 0-0.08 x10^9/L NRBC Auto 0 COMPREHENSIVE METABOLIC PANEL Component Value Range Glucose 100 74-106 mg/dL Sodium 138 136-145 mmol/L Potassium 4.0 3.5-5.1 mmol/L Chloride 107 98-107 mmol/L CO2 22 22-31 mmol/L Calcium 9.2 8.5-10.1 mg/dL Anion Gap 9 5-15 mmol/L BUN 11 7-21 mg/dL Creatinine 0.58 0.50-1.30 mg/dL eGFR by MDRD >60 >60 mL/min/1.73m2 eGFR by MDRD AFR AMER >60 >60 mL/min/1.73m2 Alk Phos 55 38-126 U/L ALT/SGPT 15 12-78 U/L AST/SGOT 10 5-40 U/L Protein Total 8.3 (*) 6.4-8.2 gm/dL Albumin 3.8 3.4-5.0 gm/dL Bili Total 0.3 0.2-1.0 mg/dL LIPASE BLOOD Component Value Range Lipase 157 73-393 U/L XR CHEST PA AND LATERAL 12:34 AM Preliminary view and read by me: AVTAR Progress Notes 12:16 AM Rechecked pt. Discussed lab, imagining, and EKG results. CXR normal. EKG shows no evidenceof pericarditis. Labs unremarkable. Will try GI cocktail. 1:03 AM Rechecked pt. Pt reporting no improvement with GI cocktail. Discussed plan for discharge with anti-inflammatories for likely musculoskeletal origin. Suggested adding H2 vicky as patient hashx of chronic reflux which naproxen is likely to exacerbate. All questions answered and pt agrees with discharge. Pt is medically stable for d/c home at this time. I have given the patient instructions regarding her diagnosis, expectations, follow up, and return precautions. I explained to the patient that emergent conditions may arise and to return to the ER for new, worsening, or any persistent conditions. I've explained the importance of following up with her doctor--Yvan Booth-- as instructed. The patient verbalized understanding of the discharge instructions. ED Course Medical Decision Making I have reviewed the: Nursing Notes and Vitals. I have interpreted the following results: Labs, 12 Lead EKG, Rhythm Strip, X-Ray and Oxygen Saturation. Orders Placed This Encounter ??? XR CHEST PA/LAT ??? CBC W AUTO DIFFERENTIAL ??? COMPREHENSIVE METABOLIC PANEL ??? LIPASE BLOOD ??? EKG 12-LEAD ??? ketorolac (TORADOL) injection 30 mg ??? DISCONTD: 0.9% NaCl injection 3 mL ??? DISCONTD: 0.9% NaCl injection 3 mL ??? lidocaine-maalox ES (GI COCKTAIL) ??? naproxen (NAPROSYN) 500 MG tablet ??? famotidine (PEPCID) tablet 20 mg ??? naproxen (NAPROSYN) tablet 500 mg Diagnosis: Final diagnoses: Chest pain Chest wall pain (Primary) New Medications: New Prescriptions NAPROXEN (NAPROSYN) 500 MG TABLET Take 1 Tab by mouth 2 times daily as needed for Pain. I have advised the patient to follow-up with: Yvan Booth MD [address] [place] [address] Call Disposition: Discharged I have reviewed the information recorded by the scribe and agree with its accuracy and contents--Dr. Cason 07/08/2013 6:02 AM Transcribed by Bess Adorno--acting scribe on behalf of Dr. Cason 07/08/2013 1:04 AM documented in this encounter Miscellaneous Notes * Miscellaneous Scans - Document, Scanned - 07/08/2013 8:48 PM CDT documented in this encounter Plan of Treatment Not on file documented as of this encounter Procedures Procedure Name Priority Date/Time Associated Diagnosis Comments CBC W AUTO DIFFERENTIAL STAT 07/07/2013 11:19 PM CDT COMPREHENSIVE METABOLIC PANEL STAT 07/07/2013 11:19 PM CDT LIPASE BLOOD STAT 07/07/2013 11:19 PM CDT EKG 12-LEAD STAT 07/07/2013 10:48 PM CDT Chest pain XR CHEST 2VW STAT 07/07/2013 10:32 PM CDT Chest pain documented in this encounter Results * LIPASE BLOOD (07/07/2013 11:19 PM CDT) Lipase 157 73 - 393 U/L 07/07/2013 11:48 PM CDT [facility] Blood BLOOD SPECIMEN / Unknown 07/07/2013 11:19 PM CDT 07/07/2013 11:24 PM CDT Arturo Cason MD LAB - CHEMISTRY [facility]NA [facility] Organization Address City/State/[facility] Co de Phone Number [facility] [address] [place] [address] * (ABNORMAL) COMPREHENSIVE METABOLIC PANEL (07/07/2013 11:19 PM CDT) Glucose 100 74 - 106 mg/dL 07/07/2013 11:48 PM CDT [facility] Sodium 138 136 - 145 mmol/L 07/07/2013 11:48 PM CDT [facility] Potassium 4.0 3.5 - 5.1 mmol/L 07/07/2013 11:48 PM CDT [facility] Chloride 107 98 - 107 mmol/L 07/07/2013 11:48 PM CDT [facility] CO2 22 22 - 31 mmol/L 07/07/2013 11:48 PM CDT [facility] Calcium 9.2 8.5 - 10.1 mg/dL 07/07/2013 11:48 PM CDT [facility] Anion Gap 9 5 - 15 mmol/L 07/07/2013 11:48 PM CDT [facility] BUN 11 7 - 21 mg/dL 07/07/2013 11:48 PM CDT [facility] Creatinine 0.58 0.50 - 1.30 mg/dL 07/07/2013 11:48 PM CDT [facility] eGFR by MDRD >60 >60 mL/min/1.7 3m2 07/07/2013 11:48 PM CDT [facility] eGFR by MDRD >60 >60 mL/min/1.7 3m2 07/07/2013 11:48 PM CDT [facility] Alkaline Phosphatase 55 38 - 126 U/L 07/07/2013 11:48 PM CDT [facility] ALT 15 12 - 78 U/L 07/07/2013 11:48 PM CDT [facility] AST 10 5 - 40 U/L 07/07/2013 11:48 PM CDT [facility] Protein Total 8.3(H) 6.4 - 8.2 gm/dL 07/07/2013 11:48 PM CDT [facility] Albumin 3.8 3.4 - 5.0 gm/dL 07/07/2013 11:48 PM CDT [facility] Bilirubin Total 0.3 0.2 - 1.0 mg/dL 07/07/2013 11:48 PM T [facility] Blood BLOOD SPECIMEN / Unknown 07/07/2013 11:19 PM CDT 07/07/2013 11:24 PM CDT Arturo Cason MD LAB - CHEMISTRY BIB[place]NA BLACKMAN [facility] Organization Address City/State/ZIP Co de Phone Number [facility] [address] [address] * (ABNORMAL) CBC W AUTO DIFFERENTIAL (07/07/2013 11:19 PM CDT) WBC 11.6(H) 4.4 - 10.7 x10^9/L 07/07/2013 11:33 PM CDT [facility] RBC 4.40 3.80 - 5.20 x10^12/L 07/07/2013 11:33 PM [facility] Hemoglobin 13.8 12.0 - 15.6 gm/dL 07/07/2013 11:33 PM [facility] Hematocrit 39.0 35.9 - 45.5 % 07/07/2013 11:33 PM [facility] MCV 88.6 80.7 - 98.3 fl 07/07/2013 11:33 PM [facility] MCH 31.4 26.7 - 34.0 pg 07/07/2013 11:33 PM [facility] MCHC 35.4 30.8 - 35.9 gm/dL 07/07/2013 11:33 PM [facility] Platelet Count 284 153 - 416 x10^9/L 07/07/2013 11:33 PM [facility] RDW-CV 12.8 12.1 - 14.9 % 07/07/2013 11:33 PM [facility] MPV 10.4 9.4 - 12.9 fl 07/07/2013 11:33 PM [facility] Neutrophils % 72.3 44.0 - 73.0 % 07/07/2013 11:33 PM [facility] Lymphocytes % 19.8(L) 20.0 - 43.0 % 07/07/2013 11:33 PM [facility] Monocytes % 7.0 5.0 - 13.0 % 07/07/2013 11:33 PM [facility] Eosinophils % 0.4 0.0 - 6.0 % 07/07/2013 11:33 PM [facility] Basophils % 0.3 0.0 - 2.0 % 07/07/2013 11:33 PM [facility] Immature Granulocytes 0.2 0 - 1 % 07/07/2013 11:33 PM [facility] Neutrophil Absolute 8.36(H) 2.01 - 7.14 x10^9/L 07/07/2013 11:33 PM [facility] Lymphocytes Absolute 2.29 1.07 - 3.94 x10^9/L 07/07/2013 11:33 PM [facility] Monocytes Absolute 0.81 0.26 - 1.07 x10^9/L 07/07/2013 11:33 PM [facility] Eosinophils Absolute 0.05 0 - 0.47 x10^9/L 07/07/2013 11:33 PM CDT [facility] Basophils Absolute 0.04 0 - 0.08 x10^9/L 07/07/2013 11:33 PM CDT [facility] nRBC Auto 0 /100 WBC 07/07/2013 11:33 PM CDT [facility] Blood BLOOD SPECIMEN / Unknown 07/07/2013 11:19 PM CDT 07/07/2013 11:24 PM CDT Arturo Cason MD LAB - HEMATOLOGY ORD ERABLES Performing Organization Address City/[facility]/ZIP Co de Phone Number [facility] [address] [id number] * EKG 12-LEAD (07/07/2013 10:48 PM CDT) Ventricular Rate 81 BPM [facility] Atrial Rate 81 BPM [facility] P-R Interval 110 ms [facility] QRS Duration ms 82 ms [facility] Q-T Interval ms 374 ms [facility] QTC Calculation (Bezet) 434 ms [facility] Calculated P Chancellor 20 degrees [facility] Calculated R Chancellor 32 degrees [facility] Calculated T Chancellor 15 degrees [facility] Interpretation EKG Sinus rhythm with short MD Otherwise normal ECG No previous ECGs available Confirmed by MD NONI, BRENT Edwards ([id number]) on 07/08/2013 9:49:28 AM [facility] 07/07/2013 10:4 8 PM CDT 07/08/2013 9:49 AM CDT Narrative [facility] - 07/08/2013 8:49 AM CDT Procedure Note Document, Scanned - 07/08/2013 7:06 AM CDT Transcriptions Document, Scanned - 07/08/2013 10:10 AM CDT Arturo Cason MD ECG ORDERABLES Performing Organization Address City/[facility]/ZIP Co de Phone Number [facility] * XR CHEST PA/LAT (07/07/2013 10:32 PM [...] Arturo Cason MD DIAGNOSTIC IMAGING O RDERABLES documented in this encounter Visit Diagnoses Diagnosis Chest wall pain- Primary Painful respiration Chest pain Chest wall pain Painful respiration Chest pain documented in this encounter Administered Medications Inactive Administered Medications - up to 3 most recent administrations Medication Order MAR Action Action Date Dose Rate Site 0.9% NaCl injection 3 mL 3 mL, Intracatheter, PRN, Other, peripheral line flush, Starting on Sun07/07/13 at 2215, Until Sun07/08/13 at 0229, Flush after each use and blood draws. $ Given 07/07/2013 11:30 PM CDT 3 mL famotidine (PEPCID) tablet 20 mg 20 mg, Oral, ONCE, 1 dose, On Sun07/08/13 at 0130 $ Given 07/08/2013 1:27 AM CDT 20 mg ketorolac (TORADOL) injection 30 mg 30 mg, Intravenous, ONCE, 1 dose, On Sun07/07/13 at 2230 $ Given 07/07/2013 11:29 PM CDT 30 mg lidocaine-maalox ES (GI COCKTAIL) 40 mL, Oral, ONCE, 1 dose, On Sun07/08/13 at 0030 $ Given 07/08/2013 12:44 AM CDT 40 mL naproxen (NAPROSYN) tablet 500 mg 500 mg, Oral, ONCE, 1 dose, On Sun07/08/13 at 0130, Take with food $ Given 07/08/2013 1:27 AM CDT 500 mg documented in this encounter Active and Recently Administered Medications Times are shown in CDT. Scheduled Medication Order 07/06/2013 07/07/2013 07/08/2013 famotidine (PEPCID) tablet 20 mg (COMPLETED) 20 mg, Oral, ONCE, 1 dose, On Sun07/08/13 at 0130 0127 ($ Given - Provider: Jessica Santana, AMBROSE) ketorolac (TORADOL) injection 30 mg (COMPLETED) 30 mg, Intravenous, ONCE, 1 dose, On Sun07/07/13 at 2230 2329 ($ Given - Provider: Haleigh Moreno, AMBROSE) lidocaine-maalox ES (GI COCKTAIL) (COMPLETED) 40 mL, Oral, ONCE, 1 dose, On Sun07/08/13 at 0030 0044 ($ Given - Provider: Jessica Santana, AMBROSE) naproxen (NAPROSYN) tablet 500 mg (COMPLETED) 500 mg, Oral, ONCE, 1 dose, On Sun07/08/13 at 0130, Take with food 0127 ($ Given - Provider: Jessica Santana, AMBROSE) PRN Medication Order 07/06/2013 07/07/2013 07/08/2013 0.9% NaCl injection 3 mL (CANCELED)(Linked Group 1) 3 mL, Intracatheter, PRN, Other, peripheral line flush, Starting on Sun07/07/13 at 2215, Until Sun07/08/13 at 0229, Flush after each use and blood draws. 2330 ($ Given - Provider: Haleigh Moreno, AMBROSE) Linked Groups Order Group 1: SALINE LOCK, INSERT AND MAINTAIN (CANCELED) Routine, CONTINUOUS, Starting on Sun07/07/13 at 2230, Until Specified, New collection And 0.9% NaCl injection 3 mL (CANCELED) 3 mL, Intracatheter, EVERY 8 HOURS, First dose on Sun07/07/13 at 2300, Until Discontinued And 0.9% NaCl injection 3 mL (CANCELED)Jump to med 3 mL, Intracatheter, PRN, Other, peripheral line flush, Starting on Sun07/07/13 at 2215, Until Sun07/08/13 at 0229, Flush after each use and blood draws. documented in this encounter Care Teams Composition Board Press Operator Relationship Specialty Start Date End Date Jean Joy MD PCP - OBGYN 12/27/07 [place] [id number] PCP - General 11/04/09 01/04/23 documented as of this encounter
--- OUTSIDE RECORDS SUMMARY | 2024-03-19 20:48 | XMS_ITS | Encounter Summary ---
Author Organization [facility] Address [address] [facility] [place] [address] Care Team Providers Care Mapping Technician Name Role Phone Jean Joy MD Unavailable [phone] Yvan Booth MD Primary Care Provider [phone] Reason for Visit * Reason Comments Grease Maker Routine Exam Encounter Details Date Type Department Care Team (Late st Contact Info) Description 01/29/2012 10:45 AM FIRE CLAIMS ADJUSTER Office Visit [facility] Medical [facility] - RIP AND GROOVE MACHINE OPERATOR [address] [place] [address] Jean Joy MD [address] [place] [address] Routine gynecological examination (Primary Dx) Social History Tobacco Use Types Packs/Day Years Used Date Smoking Tobacco: Every Day Cigarettes Alcohol Use Standard Drinks/Week Comments Yes 0 (1 standard drink = 0.6 oz pur e alcohol) Occasional Sex and Gender Information Value Date Recorded Sex Assigned at Not on file Gender Identity Not on file Sexual Orientation Not on file documented as of this encounter Last Filed Vital Signs Vital Sign Reading Time Taken Comments Blood Pressure 112/72 01/29/2012 10:43 AM FIRE CLAIMS ADJUSTER Pulse - - Temperature - - Respiratory Rate - - Oxygen Saturation - - Inhaled Oxygen Concentration - - Weight 68.5 kg (151 lb) 01/29/2012 10:43 AM FIRE CLAIMS ADJUSTER Height - - Body Mass Index 25.92 01/24/2012 10:04 AM FIRE CLAIMS ADJUSTER documented in this encounter Progress Notes * Jean Joy MD - 01/29/2012 11:15 AM CST Well Woman Yearly Exam (Premenopausal) HISTORY: Consuelo Darby is a 31 y.o. white female, Patient's last menstrual period was 01/23/2012., here for a Well Woman exam. Intermittent abd and pelvic pain - GI eval underway Patient does not have other gynecological issues or concerns. Last Pap: normal Last mammogram:patient has never had a mammogram Menses: regular monthly cycle without intermenstrual spotting., Flow is light Contraception: OCP (estrogen/progesterone) History Sexual Activity: History Sexual Activity ??? Sexually Active: Not on file Other pertinent SUPERVISOR SIGN SHOP history: none Other pertinent history: Medical, Surgical, Family, and Social History Reviewed. Allergies reviewed. Review of Systems Pertinent items are noted in HPI EXAMINATION BP 112/72 Wt 151 lb General Appearance: alert, cooperative, no distress [...] indications discussed. STD screening was not indicated. CLAIMS ADJUSTER documented in this encounter Plan of Treatment Not on file documented as of this encounter Procedures Procedure Name Priority Date/Time Associated Diagnosis Comments PAP IG LB RFLX HPV HR ASCU RFLX 16,18 Routine 01/29/2012 10:48 AM FIRE CLAIMS ADJUSTER Routine gynecological examination documented in this encounter Results * PAP IG RFLX HPV ASCU RFLX 16/18 (PO REF LAB) (01/29/2012 10:48 AM FIRE CLAIMS ADJUSTER) Diagnosis [facility] ACCOUNT BILL Comment:NEGATIVE FOR INTRAEP ITHELIAL LESION AND MALIGNANCY. Specimen Adequacy [facility] ACCOUNT BILL Comment: Satisfactory for evaluation. ??Endocervical and/or squamous metaplastic cells (endocervical component) are present. Clinician Provided ICD9 [facility] ACCOUNT BILL Comment:V72.31 ; Routine hot patcher ecological examination Performed by [facility] ACCOUNT BILL Comment:Hernandez Bright totechnologist (ASCP) Comment . [facility] ACCOUNT BILL [...] TRACT PREPARED USING PAPANICOLAOU TECHNIQUE / Unknown 01/29/2012 10:48 AM FIRE CLAIMS ADJUSTER 01/30/2012 1:43 AM FIRE CLAIMS ADJUSTER Narrative [facility] ACCOUNT BILL - 02/01/2012 8:17 AM FIRE CLAIMS ADJUSTER No. of containers..01 CYTYC Thin Prep Vial Resulting Agency Comment [facility] [address] [facility] ??[place] ARIZMENDI [id number] Jean Joy MD LAB - PATHOLOGY/CYTO LOGY ORDERABLES [facility] ACCOUNT BILL documented in this encounter Visit Diagnoses Diagnosis Routine gynecological examination- Primary documented in this encounter Care Teams Mapping Technician Relationship Specialty Start Date End Date Jean Joy MD PCP - OBGYN 12/27/07 Yvan Booth MD [address] [place] [id number] PCP - General 11/04/09 01/04/23 documented as of this encounter
--- OUTSIDE RECORDS SUMMARY | 2024-03-19 20:48 | XMS_ITS | Encounter Summary ---
Author Organization [facility] Address [address] [place] [address] Care Team Providers Care Farmworker Bulbs Name Role Phone Jean Joy MD Unavailable [phone] Yvan Booth MD Primary Care Provider [phone] Reason for Visit * Reason Comments Routine Visit Encounter Details Date Type Department Care Team (Late st Contact Info) Description 10/25/2015 3:30 PM CDT visit [facility] Medical [facility] - SEO TEAM LEAD [address] [place] [address] Jean Joy MD [address] [facility] [place] [address] GA: [id number] Social History Tobacco Use Types Packs/Day Years Used Date Smoking Tobacco: Former Cigarettes Smokeless Tobacco: Never Alcohol Use Standard Drinks/Week Comments Yes 0 (1 standard drink = 0.6 oz pur e alcohol) Occasional Comments Yes Sex and Gender Information Value Date Recorded Sex Assigned at Not on file Gender Identity Not on file Sexual Orientation Not on file documented as of this encounter Last Filed Vital Signs Vital Sign Reading Time Taken Comments Blood Pressure 122/78 10/25/2015 3:16 PM CDT Pulse - - Temperature - - Respiratory Rate - - Oxygen Saturation - - Inhaled Oxygen Concentration - - Weight 82.1 kg (181 lb) 10/25/2015 3:16 PM CDT Height - - Body Mass Index 31.07 10/05/2015 11:40 AM CDT documented in this encounter Progress Notes * Jean Joy MD - 10/25/2015 3:25 PM CDT Doing well Size c/w dates per US, no anomalies seen Girl ! documented in this encounter Plan of Treatment Not on file documented as of this encounter Visit Diagnoses Diagnosis care, subsequent , second trimester (HCC)- Primary documented in this encounter Care Teams Farmworker Bulbs Relationship Specialty Start Date End Date Jean Joy MD PCP - OBGYN 12/27/07 Yvan Booth MD [address] [place] [phone] PCP - General 11/04/09 01/04/23 documented as of this encounter
--- OUTSIDE RECORDS SUMMARY | 2024-03-19 20:48 | XMS_ITS | Encounter Summary ---
Author Organization [facility] Address [address] [facility] [place] [address] Care Team Providers Care Manager Of Project Management Name Role Phone Jean Joy MD Unavailable Yvan Booth MD Primary Care Provider [phone] Reason for Visit * Reason Onset Date Comments MEDICATION REFILL 01/27/2011 Encounter Details Date Type Department Care Team (Late st Contact Info) Description 01/27/[address] [facility] Medical [facility] - INSTRUCTIONAL ASSISTANT [address] [facility] [address] [place] [id number] Jean Joy MD [address] [facility] [address] [place] [address] MEDICATION REFILL Social History Tobacco Use Types Packs/Day Years Used Date Smoking Tobacco: Never Assessed Sex and Gender Information Value Date Recorded Sex Assigned at Not on file Gender Identity Not on file Sexual Orientation Not on file documented as of this encounter Plan of Treatment Not on file documented as of this encounter Visit Diagnoses Diagnosis Contraception- Primary Unspecified contraceptive management documented in this encounter Care Teams Manager Of Project Management Relationship Specialty Start Date End Date Jean Joy MD PCP - OBGYN 12/27/07 [place] [address] PCP - General 11/04/09 01/04/23 documented as of this encounter
--- OUTSIDE RECORDS SUMMARY | 2024-03-19 20:48 | XMS_ITS | Encounter Summary ---
Author Organization [facility] Address [address] [facility] [place] [address] Care Team Providers Care Strategic Advisor Name Role Phone Jean Joy MD Unavailable Yvan Booth MD Primary Care Provider Encounter Details Date Type Department Care Team (Latest Contact Info) Description 02/08/2012 9:32 AM BANK RECONCILIATOR - 02/08/2012 12:15 PM BANK RECONCILIATOR Hospital Encounter [facility] - Endoscopy [address] [place] [address] Sathya Foster MD [address] [facility] [address] [place] [phone] Endoscopy Discharge Disposition: Home or Self Care Social [...] Sign Reading Time Taken Comments Blood Pressure 100/62 02/08/2012 11:51 AM BANK RECONCILIATOR Pulse 74 02/08/2012 11:51 AM BANK RECONCILIATOR Temperature 36.4 ??C (97.6 ??F) 02/08/2012 11:[address] Respiratory Rate 16 02/08/2012 11:51 AM BANK RECONCILIATOR Oxygen Saturation 100% 02/08/2012 11:51 AM BANK RECONCILIATOR Inhaled Oxygen Concentration - - Weight 66.7 kg (147 lb) 02/08/2012 10:03 AM BANK RECONCILIATOR Height 162.6 cm (5' 4 ) 02/07/2012 9:24 AM BANK RECONCILIATOR Body Mass Index 25.23 02/07/2012 9:24 AM BANK RECONCILIATOR documented in this encounter Discharge Instructions * Discharge Instructions* Document, Scanned - 02/15/2012 5:12 PM BANK RECONCILIATOR RECONCILIATOR documented in this encounter Medications at Time of Discharge Medication Sig Dispensed Refills Start Date End Date cetirizine (ZYRTEC ALLERGY) 10 MG tablet Take 10 mg by mouth once daily. 02/19/2013 esomeprazole (NEXIUM) 40 MG capsule 1 Cap daily before breakfast. 10 Cap 0 01/24/2012 02/15/2012 famotidine (PEPCID) 20 MG tablet Take 20 mg by mouth 2 times daily. 02/19/2013 famotidine (PEPCID) 20 MG tablet Take 1 Tab by mouth at bedtime. 30 Tab 0 12/29/2011 02/21/2012 ibuprofen (MOTRIN) 200 MG tabletIndications:Heada raissa Take 200 mg by mouth every 6 hours as needed. Indications: Headache 02/19/2013 levonorgestrel-ethinyl estradiol (ALESSE; LEVLITE; AVIANE; LUTERA; LESSINA; SRONYX) 0.1-20 MG-MCG tablet Take 1 Tab by mouth once daily. 1 Packet 12 01/29/2012 02/23/2012 documented as of this encounter Progress Notes * Sathya Foster MD - 02/12/2012 1:48 PM CSTQuick Note: Casey colon path. Currently on trial with Levsin. Consider SIBO treatment if symptoms persist. Routine OV also. RECONCILIATOR * Lynette Nolan CRNA - 02/08/2012 6:42 PM CST POST-OP ANESTHESIA EVALUATION Consuelo Darby is a 31 y.o. female The patient is sufficiently recovered from the acute administration of the anesthesia so as to participate in the evaluation or neurologic status has returned to pre-operative or expected level of consciousness. The post-anesthesia assessment was completed based upon the elements below. The patient is stable and has adequately recovered from anesthesia unless otherwise noted. Post-op Evaluation: Temp: 97.6 ??F Pulse: 74 Resp: 16 SpO2: 100 % BP: 100/62 mmHg Pain Rating Score #: 0 Resp function: Natural Airway Cardiac Function: Stable Mental Status : Awake/Alert Pain: Comfortable / acceptable Nausea / Vomiting: None Post Procedure Hydration: Adequate Other complications A post-op evaluation was performed on the patient with the following assessment: No Apparent Anesthesia Complications Unless otherwise indicated, the patient is being discharged from anesthesia care. Lynette Nolan CRNA RECONCILIATOR * Vanita Bruce CRNA - 02/08/2012 11:15 AM CST PRE-ANESTHESIA EVALUATION Evaluated By: Vanita Bruce CRNA, 02/08/2012 11:16 AM Consuelo Darby is a 31 y.o. female Purpose: Scheduled Procedure Scheduled procedure: Colonoscopy with possible biopsy and/or polypectomy and Esophago gastro duodenoscopy with possible biopsy Hospital Problem List Patient Active Problem List Diagnoses (none) - all problems resolved or deleted Allergies Latex Meds Prescriptions prior to admission Medication Sig Dispense Refill ??? famotidine (PEPCID) 20 MG tablet Take 20 mg by mouth 2 times daily. ??? levonorgestrel-ethinyl estradiol (ALESSE; LEVLITE; AVIANE; LUTERA; LESSINA; SRONYX) 0.1-20 MG-MCG tablet Take 1 Tab by mouth once daily. 1 Packet 12 ??? cetirizine (ZYRTEC ALLERGY) 10 MG tablet Take 10 mg by mouth once daily. ??? ibuprofen (MOTRIN) 200 MG tablet Take 200 mg by mouth every 6 hours as needed. ??? esomeprazole (NEXIUM) 40 MG capsule 1 Cap daily before breakfast. 10 Cap 0 ??? famotidine (PEPCID) 20 MG tablet Take 1 Tab by mouth at bedtime. 30 Tab 0 Current Facility-Administered Medications Medication Dose Route Frequency Provider Last Rate Last Dose ??? lactated ringers infusion Intravenous pre-OP continuous Sathya R Aymerich, MD 20 mL/hr at 02/08/12 1035 Past Medical History Past Medical History Diagnosis Date ??? GERD (gastroesophageal reflux disease) Past Surgical History Past Surgical History Procedure Date ??? section ??? Colonoscopy Past Social History History Social History ??? Marital Status: Spouse Name: N/A Number of Children: N/A ??? Years of Education: N/A Occupational History ??? Not on file. Social History Main Topics ??? Smoking status: Current Everyday Smoker -- 0.5 packs/day ??? Smokeless tobacco: Not on file ??? Alcohol Use: 0.0 oz/week 0-2 Cans of beer per week Occasional ??? Drug Use: No ??? Sexually Active: Not on file Other Topics Concern ??? Not on file Social History Narrative ??? No narrative on file Last Vital SignsVITAL SIGNS Temp: 98.7 ??F Pulse: 110 Resp: 14 BP: 117/77 mmHg Weight: 147 lb (66.679 kg) Height: 5' 4 (162.6 cm) SpO2: 98 % Pre-Eval ExamPrevious Review I reviewed previous documentation: Yes PHYSICAL EXAM NPO status: Since Midnight Heart Sounds: S1 S2 Respiratory Pattern/Effort: CTA Oriented x 3: Yes Teeth: Ok Airway Class: II ANESTHESIA ASA: II Anesthesia Choices: MAC Post-Op: ENDO PRE-EVAL REVIEW I have reviewed all previously documented physician evaluations: Yes RECONCILIATOR documented in this encounter H&P Notes * Sathya Foster MD - 02/08/2012 11:12 AM CST ENDOSCOPY PRE-PROCEDURE MEDICAL HISTORY & PHYSICAL NOTE 02/08/2012 Consuelo Stock Pjale 31 y.o. female BP 117/77 Pulse 110 Temp 98.7 ??F Resp 14 Wt 147 lb (66.679 kg) BMI 25.23 kg/m2 History: Past Medical History Diagnosis Date ??? GERD (gastroesophageal reflux disease) Past Surgical History Procedure Date ??? section ??? Colonoscopy Allergies Allergen Reactions ??? Latex 02/07/2012 Contacted Lurdes in OR scheduling and advised of allergy (reaction not noted). Prescriptions prior to admission Medication Sig Dispense Refill ??? famotidine (PEPCID) 20 MG tablet Take 20 mg by mouth 2 times daily. ??? levonorgestrel-ethinyl estradiol (ALESSE; LEVLITE; AVIANE; LUTERA; LESSINA; SRONYX) 0.1-20 MG-MCG tablet Take 1 Tab by mouth once daily. 1 Packet 12 ??? cetirizine (ZYRTEC ALLERGY) 10 MG tablet Take 10 mg by mouth once daily. ??? ibuprofen (MOTRIN) 200 MG tablet Take 200 mg by mouth every 6 hours as needed. ??? esomeprazole (NEXIUM) 40 MG capsule 1 Cap daily before breakfast. 10 Cap 0 ??? famotidine (PEPCID) 20 MG tablet Take 1 Tab by mouth at bedtime. 30 Tab 0 Current Facility-Administered Medications Medication Dose Route Frequency Provider Last Rate Last Dose ??? lactated ringers infusion Intravenous pre-OP continuous Sathya Foster MD 20 mL/hr at 02/08/12 1035 Physcial Exam: General appearance: alert, cooperative, no distress Heart: regular rhythm, normal S1 and S2, without murmurs, rubs or gallops Lungs: breath sounds normal and symmetric; no rales or wheezes Abdomen: soft without mass, non-tender, with normal bowel sounds Extremities: no clubbing, cyanosis or edema Sedation Plan: Anesthesia administered per Anesthesia Department Indication(s) for Procedure: Abdominal Pain and Change in bowel habits Procedure Planned: Colonoscopy and EGD Sathya Foster MD RECONCILIATOR documented in this encounter Procedure Notes * Document, Scanned - 02/08/2012 9:36 PM CSTAssociated Order(s): CARDIAC RHYTHM STRIP ORDER RECONCILIATOR * Sathya Foster MD - 02/08/2012 11:44 AM CSTAssociated Order(s): ENDOSCOPY, COLON, DIAGNOSTIC RECONCILIATOR * Sathya Foster MD - 02/08/2012 11:42 AM CSTAssociated Order(s): EGD RECONCILIATOR * Sathya Foster MD - 02/08/2012 11:42 AM CSTAssociated Order(s): EGD; ENDOSCOPY, COLON, DIAGNOSTIC Normal EGD. Random duodenal biopsies taken. Small ascending colon polyp, hot bx. Otherwise, normal colonoscopy to ileum. A/P: F/U path. Consider repeat colon in 5 yrs if polyp adenoma. Low fat/ low irritant diet for now. Trial of Levsin PRN for now. May need to consider SIBO treatment if symptoms persist. Will follow as outpt. RECONCILIATOR documented in this encounter Miscellaneous Notes * Miscellaneous Scans - Document, Scanned - 02/13/2012 1:57 AM CST RECONCILIATOR * Miscellaneous Scans - Document, Scanned - 02/13/2012 1:56 AM CST RECONCILIATOR * Miscellaneous Scans - Document, Scanned - 02/08/2012 9:36 PM CST RECONCILIATOR documented in this encounter Plan of Treatment Not on file documented as of this encounter Procedures Procedure Name Priority Date/Time Associated Diagnosis Comments CARDIAC RHYTHM STRIP ORDER 02/08/2012 9:36 PM BANK RECONCILIATOR ENDOSCOPY, COLON, DIAGNOSTIC Routine 02/08/2012 11:45 AM BANK RECONCILIATOR EGD Routine 02/08/2012 11:45 AM BANK RECONCILIATOR GROSS + MICRO EXAM Routine 02/08/2012 11 :20 AM BANK RECONCILIATOR HCG URINE QUALITATIVE - POINT OF CARE Routine 02/08/2012 10:20 AM BANK RECONCILIATOR documented in this encounter Results * CARDIAC RHYTHM STRIP ORDER (02/08/2012 9:36 PM BANK RECONCILIATOR) Narrative 02/08/2012 9:36 PM BANK RECONCILIATOR Procedure Note Document, Scanned - 02/08/2012 9:36 PM CST Scanned Document CARDIAC SERVICES ORD ERABLES * ENDOSCOPY, COLON, DIAGNOSTIC (02/08/2012 11:45 AM BANK RECONCILIATOR) Narrative Procedure Note Sathya Foster MD - 02/08/2012 11:42 AM CST Normal EGD. Random duodenal biopsies taken. Small ascending colon polyp, hot bx. Otherwise, normal colonoscopy toileum. A/P: F/U path. Consider repeat colon in 5 yrs if polyp adenoma. Low fat/ low irritant diet for now. Trial of Levsin PRN for now. May need to consider SIBO treatment if symptoms persist. Will follow as outpt. Transcriptions Sathya Foster MD - 02/08/2012 11:44 AM CST Sathya Foster MD GI PROCEDURE ORDERAB LES [facility] ENDOSCOPY * EGD (02/08/2012 11:45 AM BANK RECONCILIATOR) Narrative Procedure Note Sathya Foster MD - 02/08/2012 11:42 AM CST Normal EGD. Random duodenal biopsies taken. Small ascending colon polyp, hot bx. Otherwise, normal colonoscopy toileum. A/P: F/U path. Consider repeat colon in 5 yrs if polyp adenoma. Low fat/ low irritant diet for now. Trial of Levsin PRN for now. May need to consider SIBO treatment if symptoms persist. Will follow as outpt. Transcriptions Sathya Foster MD - 02/08/2012 11:42 AM CST Sathya Foster MD GI PROCEDURE ORDERAB LES [facility] ENDOSCOPY * GROSS + MICRO EXAM (02/08/2012 11:20 AM BANK RECONCILIATOR) [facility] Date of Procedure 02/08/12 [facility] Physician(s) Cristian [facility] Specimen Labeled A)BIOPSY SMALL BOWEL, B)ASCENDING POLYP [facility] Pre-Op Diagnosis ABDOMINAL PAIN [facility] Gross Description [facility] Comment: Received in formalin are two containers each [...] submitted in cassette labeled B. DYT/lma MICROSCOPIC DESCRIPTION: Histologic examination of the sections of the [...] interpretation. ??The polyp appears somewhat inflamed. KA/mal DIAGNOSES: A. ??Small intestine, biopsy: - ? No significant pathologic abnormality. B. ??Colon, ascending, polypectomy: - ? Severely cauterized fragment of hyperplastic colonic epithelium. CPT: ? 50503 x2 Instructor Creeler NATHAN EASTMAN, [facility] Electronically Signed By JD BOSWELL [facility] Performed By [facility] at [facility], [address] [place] [id number] [facility] Miscellaneous samples (specimen) BIOPSY / Unknown 02/08/2012 11:20 AM BANK RECONCILIATOR 02/08/2012 1:57 PM BANK RECONCILIATOR Narrative [facility] - 02/09/2012 3:21 PM BANK RECONCILIATOR BIOPSY SMALL BOWEL Sathya Foster MD LAB - PATHOLOGY/CYTO LOGY ORDERABLES [facility] [address] [id number] * HCG URINE QUALITATIVE - POINT OF CARE (IP) (02/08/2012 10:20 AM BANK RECONCILIATOR) HCG Qual Urine neg Negative [facility] POCT TESTING QC Verified yes Yes [facility] POC T TESTING Urine specimen (specimen) URINE / Unknown 02/08/2012 10:20 AM BANK RECONCILIATOR Sathya Foster MD LAB - POINT OF CARE ORDERABLES Performing Organization Address [facility]/ZIP Co de Phone Number [facility] PO[facility] TEST[facility] [address] [id number] documented in this encounter Visit Diagnoses Not on filedocumented in this encounter Administered Medications Inactive Administered Medications - up to 3 most recent administrations Medication Order MAR Action Action Date Dose Rate Site lactated ringers infusion ADS Med 1 dose, Starting on Katy 02/08/12 at 1008, Until Katy 02/08/12 at 1035, Gila Macedo: cabinet override lactated ringers infusion at 20 mL/hr, Intravenous, PRE-OP CONTINUOUS, Starting on Katy 02/08/12 at 1015, Until Katy 02/08/12 at 1316, Pre-op $ New Bag/Syringe 02/08/2012 10:35 AM BANK RECONCILIATOR 20 mL/hr documented in this encounter Active and Recently Administered Medications Times are shown in BANK RECONCILIATOR. Continuous Medication Order 02/06/2012 02/07/2012 02/08/2012 lactated ringers infusion (CANCELED) at 20 mL/hr, Intravenous, PRE-OP CONTINUOUS, Starting on Katy 02/08/12 at 1015, Until Katy 02/08/12 at 1316, Pre-op 1035 ($ New Bag/Syri nge - Provider: Gila Macedo RN) documented in this encounter Care Teams Strategic Advisor Relationship Specialty Start Date End Date Jean Joy MD PCP - OBGYN 12/27/07 Yvan Booth MD [address] [place] [address] PCP - General 11/04/09 01/04/23 documented as of this encounter
--- OUTSIDE RECORDS SUMMARY | 2024-03-19 20:48 | XMS_ITS | Encounter Summary ---
Author Organization [facility] Address [address] [place] [address] Care Team Providers Care Contemporary Or Modern Dancer Name Role Phone Jean Joy MD Unavailable [phone] Yvan Booth MD Primary Care Provider [phone] Reason for Referral * Radiology Services (Routine) - Closed Specialty Diagnoses / Procedures Referred By Contac t Referred To Contact Radiology Diagnoses Encounter for routine screening for malformation using ultrasonics (HCC) Encounter for supervision of other normal , second trimester (HCC) Procedures US OB 14+ WKS SINGLE GEST Jean Joy MD [address] [place] [address] [facility] [address] [place] [address] Referral ID Status Reason Start Date Expiration Date Visits Re quested Visits Authorized [id number] Closed 10/25/2015 04/22/2016 1 1 Reason for Visit * Reason Comments Ultrasound Encounter Details Date Type Department Care Team (Latest Contact Info) Description 10/25/2015 3:00 PM CDT OBGYN RADIOLOGY [facility] - [employer] [address] [place] [address] Encounter for routine screening for malformation using ultrasonics ; Encounter for supervision of other normal , second trimester (HCC) Social History Tobacco Use Types Packs/Day [...] on file documented as of this encounter Procedure Notes * Akil Cook RDMS - 10/25/2015 3:32 PM CDTAssociated Order(s): US OB 14+ WKS SINGLE GEST [facility] Obstetric Ultrasound, 2nd or 3rd Trimester Pt. Name: Consuelo Darby : 1980 : Exam Date: 10/25/2015 LMP: Patient's last menstrual period was 06/12/2015. Gestational age by (LMP): 19 wks 3days GA (by today's ultrasound): 19 wks 4days BPD: 44.6 mm consistent with 19 wks 3 days HC: 167.9 mm consistent with 19 wks 3 days AC: 140.4 mm consistent with 19 wks 3 days FL: 31.6 mm consistent with 19 wks 6 days Estimated Weight --> 0 lbs 11 oz. Presentation: breech Cardiac Motion: Yes Placenta location: anterior Placental grade: 1 3 vessel cord: Yes GIOVANNY nl Cranial Anatomy Y Stomach: Y Bladder: Y Gender: female number: 1 4 Chamber Heart: Y Spine: Y Kidneys: Y Extremeties: Y (Fields: Y = Normal, A = Abnormal, U = Unsatisfactory) Comments: No anomalies seen. Impressions: size c/w dates, no anomalies seen Linen Keeper: Akil Cook RDMS Images will be scanned into the record. Interpreting Physician: Jean Joy M.D. documented in this encounter Plan of Treatment Not on file documented as of this encounter Procedures Procedure Name Priority Date/Time Associated Diagnosis Comments US OB OVER 14 WEEKS Routine 10/25/2015 3:45 PM CDT Encounter for routine screening for malformation using ultrasonics Encounter for supervision of other normal , second trimester (HCC) documented in this encounter Results * US OB 14+ WKS SINGLE GEST (10/25/2015 3:45 PM CDT) Anatomical Region Laterality Modality Abdomen Other Narrative 10/25/2015 3:45 PM CDT Jean Joy MD ? 10/25/2015 ??3:45 PM [facility] Obstetric Ultrasound, 2nd or 3rd Trimester Pt. [...] Spine: ?? Y Kidneys: ??Y Extremeties: ??Y ??(Fields: ??Y = Normal, A = Abnormal, U = Unsatisfactory) Comments: ??No anomalies seen. Impressions: size c/w dates, no anomalies seen Linen Keeper: ??Akil Cook RDMS Images will be scanned into the record. Interpreting Physician: Jean Joy M.D. ?? Jean Joy MD US ORDERABLES documented in this encounter Visit Diagnoses Diagnosis Encounter for routine screening for malformation using ultrasonics (HCC)- Primary Encounter for routine screening for malformation using ultrasonics Encounter for supervision of other normal , second trimester (HCC) documented in this encounter Care Teams Contemporary Or Modern Dancer Relationship Specialty Start Date End Date Jean Joy MD PCP - OBGYN 12/27/07 Yvan Booth MD [address] [place] [phone] PCP - General 11/04/09 01/04/23 documented as of this encounter
--- OUTSIDE RECORDS SUMMARY | 2024-03-19 20:48 | XMS_ITS | Encounter Summary ---
Author Organization [facility] Address [address] [place] [address] Care Team Providers Care Assembler Finger Buffs Name Role Phone Jean Joy MD Unavailable [phone] Yvan Booth MD Primary Care Provider [phone] Reason for Visit * Reason Onset Date Comments Question 02/08/2012 Encounter Details Date Type Department Care Team (Late st Contact Info) Description 02/08/2012 Telephone [facility] - Pulmonology [address] [place] [address] Sathya Foster MD [address] [place] [address] Question Social History Tobacco Use Types Packs/Day Years Used Date Smoking Tobacco: Every Day Cigarettes Alcohol Use Standard Drinks/Week Comments Yes 0 (1 standard drink = 0.6 oz pur e alcohol) Occasional Sex and Gender Information Value Date Recorded Sex Assigned at Not on file Gender Identity Not on file Sexual Orientation Not on file documented as of this encounter Miscellaneous Notes * Telephone Encounter - Consuelo Sandoval MA - 02/08/2012 4:13 PM CIVIL ATTORNEY Consuelo Darby called stating she was to get a new Rx from Dr. Foster after her procedure today. L ATTORNEY documented in this encounter Plan of Treatment Not on file documented as of this encounter Visit Diagnoses Not on filedocumented in this encounter Care Teams Assembler Finger Buffs Relationship Specialty Start Date End Date Jean Joy MD PCP - OBGYN 12/27/07 Yvan Booth MD [address] [place] [id number] PCP - General 11/04/09 01/04/23 documented as of this encounter
--- OUTSIDE RECORDS SUMMARY | 2024-03-19 20:48 | XMS_ITS | Encounter Summary ---
Author Organization [facility] Address [address] [place] [address] Care Team Providers Care Wheel Installer Name Role Phone Jean Joy MD Unavailable [phone] Yvan Booth MD Primary Care Provider Reason for Visit * Auth/Cert - Closed Specialty Diagnoses / Procedures Referred By Jimena t Referred To Contact Diagnoses Other specified disorder of gallbladder Procedures LAPAROSCOPIC CHOLECYSTECTOMY SINGLE INCISION Referral ID Status Reason Start Date Expiration Date Visits Re quested Visits Authorized [id number] Closed 1 1 Encounter Details Date Type Department Care Team (Late st Contact Info) Description 02/22/2012 1:30 PM HELP DESK SUPPORT - 02/22/2012 3:00 PM HELP DESK SUPPORT Surgery [facility] [address] [place] [address] Jean Amos MD [address] [facility] [id number] [place] [phone] LAPAROSCOPIC CHOLECYSTECTOMY (SINGLE INCISION) Surgery Details Date/Time Status Location OR Service Patient Class Case Class Case Type Trauma Case? 02/22/2012 1:30 PM Posted [facility] MAIN OR OR 01 General Surgery Day Care Elective > 5 days Panel 1 Procedure LRB Anes Op Region Wound Class Comments LAPAROSCOPIC CHOLECYSTECTOMY (SINGLE INCISION) N/A General Abdomen Clean Contaminated SINGLE INCISION LAPAROSCOPIC CHOLECYSTECTOMY Surgeon Surgeon Role Service Panel Jean Amos MD Primary General 1 Special Needs LATEX ALLERGY documented in this encounter Social History Tobacco [...] Sign Reading Time Taken Comments Blood Pressure 123/70 02/22/2012 5:15 PM HELP DESK SUPPORT Pulse 81 02/22/2012 4:23 PM HELP DESK SUPPORT Temperature 36.9 ??C (98.4 ??F) 02/22/2012 4:23 PM CS T Respiratory Rate 15 02/22/2012 4:23 PM HELP DESK SUPPORT Oxygen Saturation 94% 02/22/2012 5:15 PM HELP DESK SUPPORT Inhaled Oxygen Concentration - - Weight 67.1 kg (148 lb) 02/22/2012 11:30 AM HELP DESK SUPPORT Height 162.6 cm (5' 4 ) 02/22/2012 11:30 AM HELP DESK SUPPORT Body Mass Index 25.4 02/22/2012 11:30 AM HELP DESK SUPPORT documented in this encounter Discharge Instructions * Discharge Instructions* Bridgett Felix RN - 02/22/2012 4:27 PM HELP DESK SUPPORT Discharge Instructions for: Consuelo Darby Discharge Procedure Orders DIET INSTRUCTIONS Start light diet today (i.e soup, Jell-O, toast). If no nausea or vomiting, may resume normal diet.In case of nausea or vomiting, reduce diet to fluids low in acid (water, sports drinks, white sodas). As you are able to tolerate the fluids, gradually increase your diet. IF NAUSEA AND/OR VOMITING PERSISTS, CONTACT YOUR PHYSICIAN. NO ALCOHOLIC BEVERAGES For the next 24 hours or while taking pain medication. REST TODAY Increase activity tomorrow as tolerated. Walk 10 - 15 minutes, three times a day DO NOT DRIVE Do not drive or operate hazardous machinery while taking pain medication. Order Specific Question Answer Comments For how long? other (enter comment) GENERAL ANESTHESIA /IV SEDATION INSTRUCTIONS For the remainder of the day, plan to relax. A feeling of dizziness, light- headedness or drowsinessis not unusual. Move cautiously, fast movements can make this feeling worse. If you have been lyingdown, sit up slowly and pause briefly before standing. We strongly suggest that a responsible adultbe with you until tomorrow AM for your comfort and safety. CALL PHYSICIAN If you experience increasing or unrelieved pain, drainage, redness, bleeding, or swelling at surgical site and/or IV site. CALL PHYSICIAN For any vomiting or fever of 100.5 degrees or greater. CALL PHYSICIAN If unable to urinate in 6 - 8 hours or if uncomfortable. PATIENT TO CALL PHYSICIAN FOR APPOINTMENT Follow up with Dr Amos in 2-3 weeks. MEDICATION INSTRUCTIONS Take prescribed pain medications as needed. Exercise caution when walking, driving, or climbing stairs. MEDICATION INSTRUCTIONS May take iwpi-fvl-gnfesjo medication for relief of pain or discomfort. NO LIFTING OVER Order Specific Question Answer Comments How many pounds? 15 For how long? Three weeks MAY SHOWER Order Specific Question Answer Comments after... Discharged APPLY ICE PACK TO SURGICAL SITE On / Off for next 72 Hours. Do not smoke Avoid second hand smoke The following belonging have been returned to you Clothing Clothing: Yes Sent Home: Shirt;Pants;Jacket/Coat;Footwear;Undergarments Jewelry Jewelry: None Electronics Electronic Items: Yes Sent Home: Cell Phone Dentures Dentures/Retainers: None Vision Visual Aids: Yes Contact - Bilateral: Home Hearing Aids Hearing Aids: None Equipment/Assistive Devices Equipment with Patient: None Equipment At Home: None Home Medications Home Medications: None Miscellaneous Belongings Miscellaneous Items: None WEIGHT MONITORING - If you have heart failure, weigh yourself every morning. Contact your physician if your weight increases by 3 pounds in 1 day OR 5 pounds in 1 week. WHAT TO DO IF SYMPTOMS WORSEN - Contact your physician if you have shortness of breath/difficulty breathing, or any swelling of your legs, ankles or feet. The discharge and medication instructions have been reveiwed with me and my questions have been answered. I have received a copy of the discharge instructions. 02/22/2012 DESK SUPPORT * Discharge Instructions* Document, Scanned - 02/23/2012 12:46 PM HELP DESK SUPPORT DESK SUPPORT documented in this encounter Medications at Time of Discharge Medication Sig Dispensed Refills Start Date End Date cetirizine (YRTE ALLERGY) 10 MG tablet Take 10 mg by mouth once daily. 02/19/2013 famotidine (PEPCID) 20 MG tablet Take 20 mg by mouth 2 times daily. 02/19/2013 hydrocodone-acetaminophe n (NORCO) 5-325 MG tablet Take 1 Tab by mouth every 4 hours as needed for Pain. 30 Tab 0 02/22/2012 03/07/2012 hyoscyamine (LEVSIN SL) 0.125 MG tabletIndications:Abdomi nal pain, unspecified site Dissolve 1 Tab under the tongue every 4 hours as needed for Spasms. 30 Tab 3 02/08/2012 02/19/2013 ibuprofen (MOTRIN) 200 MG tabletIndications:Headac he Take 200 mg by mouth every 6 hours as needed. Indications: Headache 02/19/2013 levonorgestrel-ethinyl estradiol (ALESSE; LEVLITE; AVIANE; LUTERA; LESSINA; SRONYX) 0.1-20 MG-MCG tablet Take 1 Tab by mouth once daily. 1 Packet 12 01/29/2012 02/23/2012 rifaximin (XIFAXAN) 550 MG tabletIndications:Abdomi nal pain, RUQ (right upper quadrant) Take 550 mg by mouth 2 times daily. 02/19/2013 documented as of this encounter H&P Notes * Jean Amos MD - 02/22/2012 12:31 PM CST [facility] Jean Amos MD, FACS Patient's Primary Care Physician: Yvan Booth Name: Consuelo Darby Age: 31 y.o. Sex: female Chief Complaint and History of Present Illness Patient is 31 y.o. female with complaints of RUQ abdominal pain. Patient states this has been occurring since the of her child four years ago. She states it is gradually getting worse. 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 She indicates pain in the RUQ with some radiation to her back with associated nasuea. She had pizza last night and that made it worse. She states onlybread does not make it worse. She denies fever, chills, chest pain, or jaundice. Past Medical History Diagnosis Date ??? GERD (gastroesophageal reflux disease) Past Surgical History Procedure Date ??? section ??? Colonoscopy Family History Problem Relation Age of Onset ??? Cancer Maternal Grandfather Lung ??? Diabetes Maternal Grandfather ??? Diabetes Maternal Grandmother ??? Hypertension Mother ??? Thyroid Disease Mother ALLERGIES: Allergies Allergen Reactions ??? Latex 02/07/2012 Contacted Lurdes in OR scheduling and advised of allergy (reaction not noted). MEDICATIONS: Current Outpatient Prescriptions Medication Sig Dispense Refill ??? rifaximin (XIFAXAN) 550 MG tablet Take 550 mg by mouth 2 times daily. ??? hyoscyamine (LEVSIN SL) 0.125 MG tablet Dissolve 1 Tab under the tongue every 4 hours as neededfor Spasms. 30 Tab 3 ??? famotidine (PEPCID) 20 MG tablet Take [...] mouth every 6 hours as needed. ??? famotidine (PEPCID) 20 MG tablet Take 1 Tab by mouth at bedtime. 30 Tab 0 ??? rifaximin (XIFAXAN) 550 MG tablet Take 1 Tab by mouth 2 times daily for 14 days. 28 Tab 0 History Social History ??? Marital Status: Spouse [...] History Narrative ??? No narrative on file (Not in a hospital admission) Review of Systems CONSTITUTIONAL: Denies fever, chills, fatigue, weight loss, weight gain, ENT: Denies: sore throat, nasal congestion CARDIOVASCULAR: Denies: chest pain, dyspnea on exertion, palpitations RESPIRATORY: Denies: cough, hemoptysis, shortness of breath, wheezing HEME-LYMPH: Denies: bleeding, bruising GI: Positive for abdominal pain, nausea, Denies: vomiting, diarrhea, constipation, black stool, blood in stool : Denies: dysuria, frequency/urgency, hematuria NEURO: Denies: dizziness/vertigo, headache, speech problems, memory loss MUSCULOSKELETAL: Denies: back pain, joint pain, muscle pain, muscle weakness SKIN: Denies: rash, itching Physical Exam BP 137/84 Pulse 123 Wt 152 lb (68.947 kg) BMI 25.45 kg/m2 General appearance: alert, cooperative, no distress Head: normocephalic, atraumatic EENT: pupils equal and reactive, oropharynx clear. Ears normal. Lungs: normal breath sounds Heart: regular rythm Abdomen: Soft, tender in RUQ and epigastric region. No Russell's. Extremities: no clubbing, cyanosis or edema Back: normal, no CVA tenderness. Skin: no obvious abnormalities. Data Component Name 12/29/11 1343 11/04/09 1405 09/25/07 0535 WBC 7.03 8.10 11.37* HGB 14.2 14.8 10.0* HCT 41.3 42.1 29.6* PLTCOUNT 308 252 89* Component Name 12/29/11 1343 SODIUM 139 POTASSIUM 3.6 CHLORIDE 105 CO2 26 BUN 6* CREATININE 0.60 GLUCOSE 80 CALCIUM 8.7 ALBUMIN 3.9 ALKPHOS 60 ALT 22 AST 18 TBIL 0.4 TPROT 8.0 EGFR >60 Component Name 09/23/07 1205 PT 9.1* Component Name 09/23/07 1205 INR .86* XRays CT and US normal HIDA no EF done but normal Assessment and Plan Abdominal pain. Uncertain if this is biliary dyskinesia or not. I recommended repeating HIDA with EF. She wanted to discuss the details of surgery in case this was needed to save a visit. I discussedwith the aid of an instructional booklet the etiology and treatment with laparoscopic possible open cholecystectomy, possible cholangiogram. Aspects of surgical intervention, methods, risks (including by not limited to infection, bleeding, hematoma, and perforation of the intestines or solid organs, injury to the common bile duct, bile leak, hernia) and the risks of general anesthetic including OK, CVA, sudden or even reaction to anesthetic medications were discussed. The patient understands the risks, any and all questions were answered to the patient's satisfaction. Await HIDA with EF results. Patient with pain and nausea after HIDA despite normal EF. I discussed in detail yesterday about limitations and expectations with surgery. I think some of her symptoms are related to her gallbladder. We discussed risks and benefits again and she wishes to proceed with cholecystectomy. I have seen the patient and reviewed the chart. There are no changes to physical exam or review of systems. Consent was obtained. Plan for surgery as discussed. DESK SUPPORT documented in this encounter Procedure Notes * Document, Scanned - 02/23/2012 12:46 PM CSTAssociated Order(s): CARDIAC RHYTHM STRIP ORDER DESK SUPPORT documented in this encounter OR Notes * Operative - Jean Amos MD - 02/22/2012 2:50 PM CST Operative Report PATIENT: Consuelo Darby DATE OF OPERATION: 02/22/2012 PREOPERATIVE DIAGNOSIS: Biliary colic POSTOPERATIVE DIAGNOSIS: Same PROCEDURE PERFORMED: Laparoscopic cholecystectomy SURGEON: Jean Amos MD KAIAKO KURA TUARUA: none ANESTHESIA: General. PROCEDURE: The patient was prepped and draped in the usual fashion. A small incision was made at the umbilicusand the subcutaneous tissue was dissected to identify the fascia. A stab incision was made at the 6o'clock position and the abdomen was entered. A trocar was inserted ant the peritoneal cavity was inflated with carbon dioxide. Additional trocars were placed at the 3 and 9 o'clock position under direct vision. The gallbladder was identified, grasped, elevated upward. Adhesions were taken down by blunt dissection until the cystic duct and cystic artery were clearly identified until the critical view was obtained. This was assisted by mobilizing the gallbladder of the gallbladder fossa for several centimeters. The cystic duct to common duct junction was well visualized. The cystic duct appeared to arise from a small common duct or possibly the right hepatic duct. The cystic duct was skeletonized to the infundibulum to ensure the critical view was obtained. The same was done with the cystic artery to completely dissect the triangle of Calot. The cystic artery was doubly hemoclipped and divided as was the cystic duct. The gallbladder was taken off the bed of the liver with the use of the cautery. Bleeding points were coagulated. The area was irrigated, aspirated, checked for hemostasis. The gallbladder was placed into a endopouch bag that was inserted through the fascia at the 6 o'clock position where the trocar was removed. The bag and gallbladder was brought out the umbilicus. The abdomen was deflated. The 3 fascial defects were closed with a mattress 0 Vicryl and the skin incision was closed with running 4-0 monocryl subcuticular sutures. Dermabond was placed as a dressing. This completed the procedure. Postoperative condition satisfactory. DESK SUPPORT documented in this encounter Miscellaneous Notes * Miscellaneous Scans - Document, Scanned - 03/26/2012 9:17 AM CST DESK SUPPORT * Miscellaneous Scans - Document, Scanned - 02/23/2012 12:46 PM CST DESK SUPPORT documented in this encounter Plan of Treatment Not on file documented as of this encounter Procedures Procedure Name Priority Date/Time Associated Diagnosis Comments CARDIAC RHYTHM STRIP ORDER 02/23/2012 12:46 PM HELP DESK SUPPORT LAPAROSCOPIC CHOLECYSTECTOMY (SINGLE INCISION) 02/22/2012 7:52 PM HELP DESK SUPPORT Other specified disorder of gallbladder Special Needs LATEX ALLERGY PATHOLOGY TISSUE EXAM (STL) Routine 02/22/2012 2:40 PM HELP DESK SUPPORT Biliary dyskinesia HCG URINE QUALITATIVE - POINT OF CARE Routine 02/22/2012 11:45 AM HELP DESK SUPPORT documented in this encounter Results * CARDIAC RHYTHM STRIP ORDER (02/23/2012 12:46 PM HELP DESK SUPPORT) Narrative 02/23/2012 12:46 PM HELP DESK SUPPORT Procedure Note Document, Scanned - 02/23/2012 12:46 PM CST Scanned Document CARDIAC SERVICES ORD ERABLES * GROSS + MICRO EXAM (STL) (02/22/2012 2:40 PM HELP DESK SUPPORT) Case Report Surgical Pathology Report ? Case: [id number] ? -- Authorizing Provider: ??Jean Amos MD ?Ordering Provider: ?? Jean Amos MD ? Ordering Location: ? [facility] ? Collected: ? 02/22/2012 ??2:40 PM ? Pathologist: ? Dhruv Holt MD ? Received: ?02/23/2012 ??7:46 AM ?Signed Out: ?02/26/2012 ??5:11 PM (Final) ? Specimen: ?Gallbladder ? 02/26/2012 5:11 PM [facility] Final Diagnosis Gallbladder, cholecystectomy: - ??Cholelithiasis and chronic cholecystitis KA/alj TUMOR BOARD: ??Negative 02/26/2012 5:11 PM [facility] Clinical History PRE OP DIAGNOSIS: Biliary dyskinesia. 02/26/2012 5:11 PM [facility] Gross Description Received in formalin in a container labeled Mehnaz Consuelo Aly, gallbladder. ??The container holds a 6.7 x 2.5 x 2.2 cm intact gallbladder. ??The cystic duct is patent and unremarkable. Adjacent to the cystic duct is a 1 x 0.5 x 0.5 cm lymph node. ??The contents of the gallbladder and the container are strained yielding no gallstones or gritty material. ??The bile is green. ??The mucosa is green and velvety. ??The wall of the gallbladder measures 0.2 cm maximum thickness. ??[employer] Manager sections are submitted in a single cassette. DYT/mal 02/26/2012 5:11 PM [facility] Microscopic Description Histologic examination of the sections of the gallbladder shows Rokitansky-Ascho ff sinuses and scattered chronic inflammatory cell infiltrates within the gallbladder wall. There is no evidence of malignancy or dysplasia. Stones were identified grossly. In addition, the cystic duct lymph node is also received and shows a benign, reactive lymph node. There is no evidence of malignancy or dysplasia. (KA/alj ) 02/26/2012 5:11 PM [facility] Synoptic Report 02/26/2012 5:11 PM HELP DESK SUPPORT [facility] Miscellaneous samples (specimen) ENTIRE GALLBLADDER / Unknown 02/22/2012 2:40 PM HELP DESK SUPPORT 02/23/2012 7:46 AM HELP DESK SUPPORT Jean Amos MD LAB - PATHOLOGY/CYT OLOGY ORDERABLES [facility] [address] [address] * HCG URINE QUALITATIVE - POINT OF CARE (IP) (02/22/2012 11:45 AM HELP DESK SUPPORT) HCG Qual Urine negative Negative [facility] POCT TESTING QC Verified yes Yes [facility] POC T TESTING Urine specimen (specimen) URINE / Unknown 02/22/2012 11:45 AM HELP DESK SUPPORT Jean Amos MD LAB - POINT OF CARE ORDERABLES Performing Organization Address City/[facility] Co de Phone Number [facility] POCT TESTING [address] [address] documented in this encounter Visit Diagnoses Diagnosis Biliary dyskinesia- Primary Other specified disorder of gallbladder Other specified disorder of gallbladder documented in this encounter Administered Medications Inactive Administered Medications - up to 3 most recent administrations Medication Order MAR Action Action Date Dose Rate Site bupivacaine (MARCAINE) 0.25 % injection PRN, Starting on Katy 02/22/12 at 1409, Until Katy 02/22/12 at 1507, Intra-op $ Given 02/22/2012 2:44 PM HELP DESK SUPPORT 20 mL $ Given 02/22/2012 2:09 PM HELP DESK SUPPORT 10 mL ceFAZolin (ANCEF) 2 g IVPB ADS Med 1 dose, Starting on Katy 02/22/12 at 1226, Until Katy 02/22/12 at 1422, Sharmila Rizo: papat override ceFAZolin (ANCEF) IVPB 2 g 2 g, at 100 mL/hr, Intravenous, PRE-OP MULTIPLE, Starting on Katy 02/22/12 at 1152, Until Katy 02/22/12 at 1842, Administer 30 minutes prior to surgical incision. May redose in 3 hours if surgical incision not yet closed., Pre-op $ Given 02/22/2012 1:52 PM HELP DESK SUPPORT 2 g 100 mL/hr famotidine (PEPCID) injection 20 mg 20 mg, Intravenous, PRE-OP ONCE, 1 dose, Pre-op $ Given 02/22/2012 1:10 PM HELP DESK SUPPORT 20 mg famotidine (PEPCID) injection ADS Med 1 dose, Starting on Katy 02/22/12 at 1226, Until Katy 02/22/12 at 1310, Sharmila Rizo: cabinet override fentaNYL (SUBLIMAZE) injection 25-50 mcg 25-50 mcg, Intravenous, POST-OP MULTIPLE, Starting on Katy 02/22/12 at 1508, Until Katy 02/22/12 at 1842, 25 mcg q5 minutes for a pain scale of 1-5. 50 mcg q5 minutes for a pain scale of 6-10. May repeat q5 minutes up to a total dose of 150 mcg. , PACU $ Given 02/22/2012 3:32 PM HELP DESK SUPPORT 25 mcg fentaNYL (SUBLIMAZE) injection ADS Med 1 dose, Starting on Katy 02/22/12 at 1532, Until Akty 02/22/12 at 1532, Bhumika Sandy: cabinet override lactated ringers infusion ADS Med 1 dose, Starting on Katy 02/22/12 at 1220, Until Katy 02/22/12 at 1255, Sharmila Rizo: cabinet override lactated ringers infusion at 20 mL/hr, Intravenous, PRE-OP CONTINUOUS, Starting on Katy 02/22/12 at 1215, Until Katy 02/22/12 at 1842, Pre-op $ New Bag/Syringe 02/22/2012 2:50 PM HELP DESK SUPPORT mL $ New Bag/Syringe 02/22/2012 1:58 PM HELP DESK SUPPORT mL $ New Bag/Syringe 02/22/2012 12:55 PM HELP DESK SUPPORT 20 mL /hr Left Hand lidocaine (XYLOCAINE MPF) 1 % injection Infiltration, PRE-OP MULTIPLE, 3 doses, Starting on Katy 02/22/12 at 1205, Until Katy 02/22/12 at 1842, May be used (0.2 ml locally to anesthetize prior to insertion if patient has NKA to Lidocaine)., Pre-op $ Given 02/22/2012 12:55 PM HELP DESK SUPPORT 2 mL Left Hand lidocaine (XYLOCAINE MPF) 1% injection ADS Med 1 dose, Starting on Katy 02/22/12 at 1220, Until Katy 02/22/12 at 1255, Sharmila Rizo: cabinet override ondansetron (ZOFRAN) injection 4 mg 4 mg, Intravenous, PRE-OP ONCE, 1 dose, Pre-op $ Given 02/22/2012 1:08 PM HELP DESK SUPPORT 4 mg ondansetron (ZOFRAN) injection 4 mg 4 mg, Intravenous, POST-OP ONCE, 2 doses, PRN, May repeat x 1, PACU $ Given 02/22/2012 3:29 PM HELP DESK SUPPORT 4 mg ondansetron (ZOFRAN) injection ADS Med 1 dose, Starting on Katy 02/22/12 at 1226, Until Katy 02/22/12 at 1308, Sharmila Rizo: cabinet override documented in this encounter Active and Recently Administered Medications Times are shown in HELP DESK SUPPORT. Scheduled Medication Order 02/20/2012 02/21/2012 02/22/2012 ceFAZolin (ANCEF) IVPB 2 g (CANCELED) 2 g, at 100 mL/hr, Intravenous, PRE-OP MULTIPLE, Starting on Katy 02/22/12 at 1152, Until Katy 02/22/12 at 1842, Administer 30 minutes prior to surgical incision. May redose in 3 hours if surgical incision not yet closed., Pre-op 1352 ($ Given - Prov ider: Shruti Fuentes RN)1422 (Rx Stopped - Provider: Aminata Steiner CRNA) famotidine (PEPCID) injection 20 mg (COMPLETED) 20 mg, Intravenous, PRE-OP ONCE, 1 dose, Pre-op 1310 ($ Given - Prov ider: Zeinab Blair RN) fentaNYL (SUBLIMAZE) injection 25-50 mcg (CANCELED) 25-50 mcg, Intravenous, POST-OP MULTIPLE, Starting on Katy 02/22/12 at 1508, Until Katy 02/22/12 at 1842, 25 mcg q5 minutes for a pain scale of 1-5. 50 mcg q5 minutes for a pain scale of 6-10. May repeat q5 minutes up to a total dose of 150 mcg. , PACU 1532 ($ Given - Prov ider: Bhumika Sandy RN) lidocaine (XYLOCAINE MPF) 1 % injection (CANCELED) Infiltration, PRE-OP MULTIPLE, 3 doses, Starting on Katy 02/22/12 at 1205, Until Katy 02/22/12 at 1842, May be used (0.2 ml locally to anesthetize prior to insertion if patient has NKA to Lidocaine)., Pre-op 1255 ($ Given - Prov ider: Zeinab Blair RN) ondansetron (ZOFRAN) injection 4 mg (COMPLETED) 4 mg, Intravenous, PRE-OP ONCE, 1 dose, Pre-op 1308 ($ Given - Prov ider: Zeinab Blair RN) ondansetron (ZOFRAN) injection 4 mg (CANCELED) 4 mg, Intravenous, POST-OP ONCE, 2 doses, PRN, May repeat x 1, PACU 1529 ($ Given - Prov ider: Bhumika Sandy RN) Continuous Medication Order 02/20/2012 02/21/2012 02/22/2012 lactated ringers infusion (CANCELED) at 20 mL/hr, Intravenous, PRE-OP CONTINUOUS, Starting on Katy 02/22/12 at 1215, Until Katy 02/22/12 at 1842, Pre-op 1255 ($ New Bag/Syri nge - Provider: Zeinab Blair RN)1358 ($ New Bag/Syringe - Provider: Aminata Steiner CRNA)1450 ($ New Bag/Syringe - Provider: Aminata Steiner CRNA) PRN Medication Order 02/20/2012 02/21/2012 02/22/2012 bupivacaine (MARCAINE) 0.25 % injection (CANCELED) PRN, Starting on Katy 02/22/12 at 1409, Until Katy 02/22/12 at 1507, Intra-op 1409 ($ Given - Prov ider: Jean Amos MD)1444 ($ Given - Provider: Jean Amos MD) documented in this encounter Care Teams Wheel Installer Relationship Specialty Start Date End Date Jean Joy MD PCP - OBGYN 12/27/07 Yvan Booth MD [address] [place] [id number] PCP - General 11/04/09 01/04/23 documented as of this encounter
--- OUTSIDE RECORDS SUMMARY | 2024-03-19 20:48 | XMS_ITS | Encounter Summary ---
Author Organization [facility] Address [address] [place] [address] Care Team Providers Care Office Support Assistant Name Role Phone Jean Joy MD Unavailable [phone] Yvan Booth MD Primary Care Provider [phone] Encounter Details Date Type Department Care Team (Late st Contact Info) Description 02/08/2012 Orders Only [facility] [address] [place] [address] Rhianna Velazco MD [address] [place] [address] Abdominal pain, unspecified site Social History Tobacco Use Types Packs/Day Years Used Date Smoking Tobacco: Every Day Cigarettes Alcohol Use Standard Drinks/Week Comments Yes 0 (1 standard drink = 0.6 oz pur e alcohol) Occasional Sex and Gender Information Value Date Recorded Sex Assigned at Not on file Gender Identity Not on file Sexual Orientation Not on file documented as of this encounter Progress Notes * Laura Molina - 02/08/2012 4:43 PM CST Levsin was sent to pharmacy. Pt notified. T DIPPER documented in this encounter Plan of Treatment Not on file documented as of this encounter Procedures Procedure Name Priority Date/Time Associated Diagnosis Comments GROSS + MICRO EXAM JOSE GUADALUPE 02/08/2012 11 :20 AM PAINT DIPPER documented in this encounter Results * GROSS + MICRO EXAM (02/08/2012 11:20 AM PAINT DIPPER) Result CASE NUMBER [id number] Comment: ORDERING PHYSICIAN ??RHIANNA VELAZCO SPECIMEN TYPE ?Biopsy DATE OF PROCEDURE [...] cauterized fragment of hyperplastic colonic epithelium. CPT ?17090 x2 Immigration Paralegal ? NATHAN EASTMAN Electronically Signed By ? JD BOSWELL Performed By ? [facility] at [facility], [address] [place] [id number] MISCELLANEOUS SAMPLES / Unknown 02/08/2012 11:20 AM PAINT DIPPER 02/08/2012 1:57 PM PAINT DIPPER Historical Provider MD LAB - PATHOLOGY/C YTOLOGY ORDERABLES documented in this encounter Visit Diagnoses Diagnosis Abdominal pain, unspecified site- Primary documented in this encounter Care Teams Office Support Assistant Relationship Specialty Start Date End Date Jean Joy MD PCP - OBGYN 12/27/07 Yvan Booth MD [address] [place] [phone] PCP - General 11/04/09 01/04/23 documented as of this encounter
--- OUTSIDE RECORDS SUMMARY | 2024-03-19 20:48 | XMS_ITS | Encounter Summary ---
Author Organization [facility] Address [address] [place] [address] Care Team Providers Care Esthetic Dermatologist Name Role Phone Unknown, Provider Primary Care Provider Unavaila ble Encounter Details Date Type Department Care Team (Latest Contact Info) Description 09/23/2007 10:34 AM CDT - 09/27/2007 12:30 PM CDT Hospital Encounter [facility] [address] [place], [place] Jean Thao MD [address] [place] [address] Obstetrics Dis[facility] Social History Tobacco Use Types Packs/Day Years Used Date Smoking Tobacco: Never Assessed Sex and Gender Information Value Date Recorded Sex Assigned at Not on file Gender Identity Not on file Sexual Orientation Not on file documented as of this encounter Discharge Summaries * Jean Thao MD - 01/28/2008 12:00 AM [facility] [address] [place] [address] Discharge Summary This patient was a 26-year-old, 1, para 0, with a due date of 10/23/2007, who had a complicated by increased blood pressure for about a month prior to admission. At the time of admission, she was complaining of epigastric pain for several hours prior to admission. Her blood pressure was elevated at 189/113 upon admission. Platelet count was noted to be 185 and her liver enzymes were elevated. Diagnosis of severe PIH at 36 weeks was made. She had an unfavorable cervix and due to the need for expedient delivery, she desired a primary . A viable female was delivered. The patient was maintained on magnesium sulfate for 24 hours after delivery for seizure prophylaxis. She was resumed on labetalol 200 mg b.i.d. Her blood pressures remained moderately elevated while in the hospital, but were controlled with labetalol. By the 2nd postoperative day, she was tolerating a regular diet. Her hemoglobin and hematocrit was stable. Platelets had nadired at about 75,000 and were seen to be 89,000 on postop day #2. She continued to recover nicely and was discharged home on 09/27/2007. She was discharged home on labetalol 200 mg b.i.d. Strict instructions were given. She will be followed up in the office in 2 weeks to check her blood pressure. She was given Percocet for pain and she is also to take ibuprofen as needed. She was discharged home with the usual instructions of pelvic rest and light activity and as mentioned previously, she will be followed up in the office in 2 weeks for a blood pressure check and incision check. PUMPER PANELBOARD documented in this encounter Plan of Treatment Not on file documented as of this encounter Procedures Procedure Name Priority Date/Time Associated Diagnosis Comments CBC W AUTO DIFFERENTIAL Routine 09/25/2007 5:35 AM CDT COMPREHENSIVE METABOLIC PANEL Routine 09/25/2007 5:35 AM CDT CBC W AUTO DIFFERENTIAL Routine 09/24/2007 1:44 PM CDT HGB HCT PANEL Routine 09/24/2007 1:56 AM CDT GROSS + MICRO EXAM JOSE GUADALUPE 09/23/2007 2: 13 PM CDT GROSS + MICRO EXAM Routine 09/23/2007 2: 13 PM CDT URIC ACID BLOOD STAT 09/23/2007 12:05 PM CDT TYPE + SCREEN PANEL STAT 09/23/2007 1 2:05 PM CDT PT PTT PANEL STAT 09/23/2007 12:05 PM CDT FIBRINOGEN ACTIVITY STAT 09/23/2007 1 2:05 PM CDT FIBRIN SPLIT PRODUCTS STAT 09/23/2007 12:05 PM CDT CBC W/O DIFFERENTIAL Routine 09/23/2007 12:05 PM CDT COMPREHENSIVE METABOLIC PANEL STAT 09/23/2007 12:05 PM CDT BILIRUBIN DIRECT STAT 09/23/2007 12:0 5 PM CDT documented in this encounter Results * (ABNORMAL) COMPREHENSIVE METABOLIC PANEL (09/25/2007 5:35 AM CDT) Glucose 77 65 - 105 mg/dl [facility] BUN 13 7 - 17 mg/dl [facility] Creatinine 0.9 0.7 - 1.2 mg/dl [facility] Sodium 136(L) 137 - 145 mmol/L [facility] Potassium 4.2 3.6 - 5.0 mmol/L [facility] Chloride 108(H) 98 - 107 mmol/L [facility] CO2 25 22 - 30 mmol/L [facility] Calcium 6.0(DLL) 8.4 - 10.2 mg/dl [facility] Bilirubin Total 0.3 0.2 - 1.3 mg/dl [facility] Alkaline Phosphatase 125(DE) 38 - 126 U/L [facility] AST 81(DH) 14 - 36 U/L [facility] ALT 113(DH) 9 - 52 U/L [facility] Protein Total 5.4(DL) 6.3 - 8.2 gm/dl [facility] Albumin 2.3(L) 3.5 - 5.0 gm/dl [facility] 09/25/2007 5:35 AM CDT Jean Thao MD LAB - CHEMISTRY BIBIANA BLACKMAN [facility] Organization Address City/State/ZIP Co de Phone Number [facility] * (ABNORMAL) CBC W AUTO DIFFERENTIAL (09/25/2007 5:35 AM CDT) WBC 11.37(H) 4.0 - 11.0 X(10)3/L [facility] RBC 3.17(L) 3.8 - 5.3 X(10)[address] [facility] Hemoglobin 10.0(L) 12.0 - 16.0 gm/dl [facility] Hematocrit 29.6(L) 36 - 47 % [facility] MCV 93.4(DE) 80.0 - 99.[address] [facility] MCH 31.5 26 - [address] [facility] MCHC 33.8 32.0 - 37.0 gm/dl [facility] RDW 15.0(H) 11.5 - 14.5 % [facility] Platelet Count 89(L) 150 - 400 K/CUMM [facility] MPV 11.8 9.2 - 12.2 [facility] Granulocytes % 66.5 43 - 70 % [facility] Granulocytes Absolute 7.57(H) 1.7 - 6.7 X(10)[address] [facility] Lymphocytes % 22.5 22 - 41 % [facility] Lymphocytes Absolute 2.56 0.9 - 3.2 X(10)[address] [facility] Monocytes % 10.4 2.0 - 11.0 % [facility] Monocytes Absolute 1.18(H) 0.2 - 0.9 X(10)[address] [facility] Eosinophils % 0.4 0.0 - 5.0 % [facility] Eosinophils Absolute 0.04 0.0 - 0.4 X(10)[address] [facility] Basophils % 0.2(DE) 0 - 2 % [facility] Basophils Absolute 0.02 0.0 - 0.2 X(10)[address] [facility] Comment Manual Diff Manual Diff Not Indicated [facility] 09/25/2007 5:35 AM CDT Jean Thao MD LAB - HEMATOLOGY ORD ERABLES [facility] * (ABNORMAL) CBC W AUTO DIFFERENTIAL (09/24/2007 1:44 PM CDT) WBC 9.81(DE) 4.0 - 11.0 X(10)3/L [facility] RBC 3.16(DL) 3.8 - 5.3 X(10)[address] [facility] Hemoglobin 9.8(L) 12.0 - 16.0 gm/dl [facility] Hematocrit 28.6(L) 36 - 47 % [facility] MCV 90.5 80.0 - 99.0 [facility] MCH 31.0 26 - [address] [facility] MCHC 34.3 32.0 - 37.0 gm/dl [facility] RDW 14.5 11.5 - 14.5 % [facility] Platelet Count 70(DL) 150 - 400 K/CUMM [facility] MPV 10.3 9.2 - 12.2 [facility] Granulocytes % 71.4(H) 43 - 70 % [facility] Granulocytes Absolute 7.01(H) 1.7 - 6.7 X(10)[address] [facility] Lymphocytes % 18.9(L) 22 - 41 % [facility] Lymphocytes Absolute 1.85 0.9 - 3.2 X(10)[address] [facility] Monocytes % 9.3 2.0 - 11.0 % [facility] Monocytes Absolute 0.91(H) 0.2 - 0.9 X(10)[address] [facility] Eosinophils % 0.3 0.0 - 5.0 % [facility] Eosinophils Absolute 0.03 0.0 - 0.4 X(10)[address] [facility] Basophils % 0.1 0 - 2 % [facility] Basophils Absolute 0.01 0.0 - 0.2 X(10)[address] [facility] Comment Manual Diff Manual Diff Not Indicated [facility] 09/24/2007 1:44 PM CDT Jean Thao MD LAB - HEMATOLOGY ORD ERABLES Performing Organization Address [facility] Co de Phone Number [facility] * (ABNORMAL) HGB HCT PANEL (09/24/2007 1:56 AM CDT) Hemoglobin 10.3(DL) 12.0 - 16.0 gm/dl [facility] Hematocrit 29.4(DL) 36 - 47 % [facility] 09/24/2007 1:56 AM CDT Jean Thao MD LAB - HEMATOLOGY ORD EnerTracBLES Performing Organization Address [facility] de Phone Number [facility] * GROSS + MICRO EXAM (09/23/2007 2:13 PM CDT) Result CASE NUMBER [id number] Comment: ORDERING PHYSICIAN ??JEAN THAO SPECIMEN TYPE ?Placenta DATE OF PROCEDURE ?09/23/2007 SPECIMEN LABELED ? Placenta PRE-OP DIAGNOSIS ? Severe pre-eclampsia, primary C/S at 35 6/7 weeks GROSS DESCRIPTION ? GROSS DESCRIPTION The specimen is received in formalin labeled placenta patient Consuelo Darby, and consists of a 437 gram placenta with attached membranes and umbilical cord, dark purple coloration, 16 x 13 x 2 cm with centrally inserted umbilical cord, 15 x 1.5 cm with three vessels present. The surface shows a 4 x 3 x 1 cm marginal infarct. The membranes are purple. The maternal surface is partially fragmented with some loose dark red clots adherent to the surface. These are soft and maroon. The cord contains prominent Alexis's jelly at the end. Transverse cut sections through the placenta show a 5 x 3 x 1.5 cm firm partially organized blood clot adherent to the membranes adjacent to the parenchyma which is dark red and spongy and focally pale and focally disrupted. Five cassettes, A. Dictated by ? Richi Alcala M.D. MICROSCOPIC DESCRIPTION Sections of the placenta show mature, well vascularized and congested chorionic villi and decidua with focal areas of infarction. Occasional foci of intervillous hemorrhage are noted in A4. Focal calcification is also present. Sections of the umbilical cord show the usual three blood vessels. Sections of the membrane do not show any evidence of acute chorioamnionitis. A large blood clot is adherent to the membranes in one of the sections. DIAGNOSIS Placenta and cord, section delivery ? term placenta with focal infarcts and intervillous hemorrhage ? retroplacental blood clot (5 x 3 x 1.5 cm) ? clinical history of severe pre-eclampsia and retroplacental blood clot Dictated by ? Chris Brown M.D. Music Manager ? CATY FERRARA Electronically Signed By ? CHRIS BROWN MISCELLANEOUS SAMPLES / Unknown 09/23/2007 2:13 PM CDT 09/24/2007 8:50 AM CDT Historical Provider LAB - PATHOLOGY/C YTOLOGY ORDERABLES * GROSS + MICRO EXAM (09/23/2007 2:13 PM CDT) Date of Procedure 09/23/07 [facility] Specimen Labeled Placenta [facility] Pre-Op Diagnosis Severe pre-eclamps ia, primary C/S at 35 6/[address] [facility] Post-Op Diagnosis Same [facility] Clinical History [facility] Comment: This is a 26 y/o woman with severe pre-eclampsia, had a primary section at 35 6/7 weeks gestation^ blood clot noted behind the placenta. Gross Description [facility] Comment: GROSS DESCRIPTION The specimen is received in formalin labeled placenta patient Consuelo Darby, and consists of a 437 gram placenta with attached membranes and umbilical cord, dark purple coloration, 16 x 13 x 2 cm with centrally inserted umbilical cord, 15 x 1.5 cm with three vessels present. The surface shows a 4 x 3 x 1 cm marginal infarct. The membranes are purple. The maternal surface is partially fragmented with some loose dark red clots adherent to the surface. These are soft and maroon. The cord contains prominent Alexis's jelly at the end. Transverse cut sections through the placenta show a 5 x 3 x 1.5 cm firm partially organized blood clot adherent to the membranes adjacent to the parenchyma which is dark red and spongy and focally pale and focally disrupted. Five cassettes, A. Dictated by ?Richi Alcala M.D. MICROSCOPIC DESCRIPTION Sections of the placenta show mature, well vascularized and congested chorionic villi and decidua with focal areas of infarction. Occasional foci of intervillous hemorrhage are noted in A4. Focal calcification is also present. Sections of the umbilical cord show the usual three blood vessels. Sections of the membrane do not show any evidence of acute chorioamnionitis. A large blood clot is adherent to the membranes in one of the sections. DIAGNOSIS Placenta and cord, section delivery ? term placenta with focal infarcts and intervillous hemorrhage ? retroplacental blood clot (5 x 3 x 1.5 cm) ? clinical history of severe pre-eclampsia and retroplacental blood clot Dictated by ?Chris Brown M.D. Music Manager CATY FERRARA, [facility] Pathologist , [facility] Electronically Signed By CHRIS BROWN, [facility] 09/23/2007 2:13 PM CDT Jean Thao MD LAB - PATHOLOGY/CYTO LOGY ORDERABLES Performing Organization Address [facility] Co de Phone Number [facility] * TYPE + SCREEN PANEL (09/23/2007 12:05 PM CDT) ABO Rh B POS [facility] Antibody Screen NEG [facility] 09/23/2007 12:0 5 PM CDT Jean Thao MD LAB - BLOOD BANK ORD ERABLES Performing Organization Address [facility] Co de Phone Number [facility] * (ABNORMAL) PT PTT PANEL (09/23/2007 12:05 PM CDT) PT 9.1(L) 9.4 - 11.[address] [facility] INR .86(L) SEE BELOW [facility] Comment: 0.92-1.12 Normal 2.0-3.0 Therapeutic Low Risk 2.5-3.5 Therapeutic High Risk PTT 25.6(L) 26.0 - 32.[address] [facility] 09/23/2007 12:0 5 PM CDT Narrative Resulting Agency Comment Performed By -COA Jean Thao MD LAB - COAGULATION OR DERABLES Performing Organization Address [facility] Co de Phone Number [facility] * FIBRINOGEN ACTIVITY (09/23/2007 12:05 PM CDT) Fibrinogen 304.4 225.6 - 406.5 mg/dl [facility] 09/23/2007 12:0 5 PM CDT Narrative Authorizing Provider Result Pedro Thao MD LAB - COAGULATION OR DERABLES Performing Organization Address [facility] Co de Phone Number [facility] * URIC ACID BLOOD (09/23/2007 12:05 PM CDT) Uric Acid 5.2 2.5 - 7.5 mg/dl [facility] 09/23/2007 12:0 5 PM CDT Jean Thao MD LAB - CHEMISTRY BIBIANA BLACKMAN [facility] * (ABNORMAL) COMPREHENSIVE METABOLIC PANEL (09/23/2007 12:05 PM CDT) Glucose 81. 65 - 105 mg/dl [facility] BUN 8. 7 - 17 mg/dl [facility] Creatinine .7 0.7 - 1.2 mg/dl [facility] Sodium 134.(L) 137 - 145 mmol/L [facility] Potassium 4.5 3.6 - 5.0 mmol/L [facility] Chloride 104. 98 - 107 mmol/L [facility] CO2 20.(L) 22 - 30 mmol/L [facility] Calcium 8.3(L) 8.4 - 10.2 mg/dl [facility] Bilirubin Total .3 0.2 - 1.3 mg/dl [facility] Alkaline Phosphatase 195.(H) 38 - 126 U/L [facility] AST 375.(H) 14 - 36 U/L [facility] ALT 228.(H) 9 - 52 U/L [facility] Protein Total 6.7 6.3 - 8.2 gm/dl [facility] Albumin 3.1(L) 3.5 - 5.0 gm/dl [facility] 09/23/2007 12:0 5 PM CDT Jean Thao MD LAB - CHEMISTRY BIBIANA BLACKMAN [facility] * BILIRUBIN DIRECT (09/23/2007 12:05 PM CDT) Bilirubin Direct 0 0.0 - 0.3 mg/dl [facility] 09/23/2007 12:0 5 PM CDT Jean Thao MD LAB - CHEMISTRY ORDE RABLES Performing Organization Address City/[facility] Co de Phone Number [facility] * FIBRIN SPLIT PRODUCTS (09/23/2007 12:05 PM CDT) FDP <5 <5 mcg/ml [facility] 09/23/2007 12:0 5 PM CDT Jean Thao MD LAB - COAGULATION OR DERABLES Performing Organization Address [facility] Co de Phone Number [facility] * (ABNORMAL) CBC W/O DIFFERENTIAL (09/23/2007 12:05 PM CDT) WBC 16.70(H) 4.0 - 11.0 X(10)3/L [facility] RBC 4.12 3.8 - 5.3 X(10)[address] [facility] Hemoglobin 13.5 12.0 - 16.0 gm/dl [facility] Hematocrit 37.8 36 - 47 % [facility] MCV 91.7 80.0 - 99.[address] [facility] MCH 32.8 26 - [address] [facility] MCHC 35.7 32.0 - 37.0 gm/dl [facility] RDW 13.5 11.5 - 14.5 % [facility] Platelet Count 185 150 - 400 K/CUMM [facility] MPV 11.5 9.2 - 12.[address] [facility] Comment Manual Diff Manual Diff Not Indicated [facility] 09/23/2007 12:0 5 PM CDT Jean Thao MD LAB - HEMATOLOGY ORD ERABLES Performing Organization Address [facility] Co de Phone Number [facility] documented in this encounter Visit Diagnoses Not on filedocumented in this encounter Care Teams Esthetic Dermatologist Relationship Specialty Start Date End Date Unknown, Provider PCP - General 09/23/07 11/03/09 documented as of this encounter
--- OUTSIDE RECORDS SUMMARY | 2024-03-19 20:48 | XMS_ITS | Encounter Summary ---
Author Organization [facility] Address [address] [facility] [address] [place] [address] Care Team Providers Care Heel Scourer Name Role Phone Jean Joy MD Unavailable [phone] Yvan Booth MD Primary Care Provider [phone] Encounter Details Date Type Department Care Team (Latest Contact Info) Description 03/04/2016 Encounter Social History Tobacco Use Types Packs/Day Years [...] No 03/01/2016 documented as of this encounter Nursing Notes * Laurel Eason RN - 03/04/2016 11:15 AM CST This note was copied from a baby's chart. follow-up: No questions or concerns voiced at this time. Encouraged to call for any assistance as needed. Invited to Weigh In Sunday support group. Mom verbalized understanding. ULANT DIPPER documented in this encounter Plan of Treatment Not on file documented as of this encounter Visit Diagnoses Not on filedocumented in this encounter Care Teams Heel Scourer Relationship Specialty Start Date End Date Jean Joy MD PCP - OBGYN 12/27/07 Yvan Booth MD [address] [place] [phone] PCP - General 11/04/09 01/04/23 documented as of this encounter
--- OUTSIDE RECORDS SUMMARY | 2024-03-19 20:48 | XMS_ITS | Encounter Summary ---
Author Organization [facility] Address [address] [place] [address] Care Team Providers Care Transplant Case Manager Name Role Phone Jean Joy MD Unavailable [phone] Yvan Booth MD Primary Care Provider [phone] Reason for Visit * Reason Comments Routine Visit Encounter Details Date Type Department Care Team (Late st Contact Info) Description 09/07/2015 1:15 PM CDT visit [facility] - DIRECTOR EPIDEMIOLOGY [address] [place], [place] [id number] Jean Joy MD [address] [place] [address] [place]: [id number] Social History Tobacco Use Types Packs/Day Years [...] Sign Reading Time Taken Comments Blood Pressure 120/74 09/07/2015 1:14 PM CDT Pulse - - Temperature - - Respiratory Rate - - Oxygen Saturation - - Inhaled Oxygen Concentration - - Weight 78.5 kg (173 lb) 09/07/2015 1:14 PM CDT Height - - Body Mass Index 29.7 08/03/2015 10:30 AM CDT documented in this encounter Progress Notes * Jean Joy MD - 09/07/2015 1:31 PM CDT Doing well Labs normal Discussed Hx of severe PIH documented in this encounter Plan of Treatment Not on file documented as of this encounter Visit Diagnoses Diagnosis care, subsequent , first trimester (HCC)- Primary documented in this encounter Care Teams Transplant Case Manager Relationship Specialty Start Date End Date Jean Joy MD PCP - OBGYN 12/27/07 Yvan Booth MD [address] [place] [id number] PCP - General 11/04/09 01/04/23 documented as of this encounter
--- OUTSIDE RECORDS SUMMARY | 2024-03-19 20:48 | XMS_ITS | Encounter Summary ---
Author Organization [facility] Address [address] [facility] [place] [address] Care Team Providers Care Hot Knife Foxing Cutter Name Role Phone Jean Joy MD Unavailable [phone] Yvan Booth MD Primary Care Provider [phone] Reason for Visit * Reason Onset Date Comments Update 02/13/2012 Encounter Details Date Type Department Care Team (Late st Contact Info) Description 02/13/2012 Telephone [facility] [address] [place] [address] Sathya Foster MD [address] [place] [address] Update Social History Tobacco Use Types Packs/Day Years [...] encounter Miscellaneous Notes * Telephone Encounter - Hillary Matthews - 02/13/2012 8:36 AM CST Calling to update with her condition since starting new medication which has not been working for her. ICAL ELASTIC KNITTER documented in this encounter Plan of Treatment Not on file documented as of this encounter Visit Diagnoses Not on filedocumented in this encounter Care Teams Hot Knife Foxing Cutter Relationship Specialty Start Date End Date Jean Joy MD PCP - OBGYN 12/27/07 Yvan Booth MD [address] [place] [address] PCP - General 11/04/09 01/04/23 documented as of this encounter
--- OUTSIDE RECORDS SUMMARY | 2024-03-19 20:48 | XMS_ITS | Encounter Summary ---
Author Organization [facility] Address [address] [facility] [place] [address] Care Team Providers Care Progressive Care Nurse Name Role Phone Jean Joy MD Unavailable Yvan Booth MD Primary Care Provider [phone] Reason for Referral * - Closed Specialty Diagnoses / Procedures Referred By Contac t Referred To Contact Diagnoses Abdominal pain, RUQ (right upper quadrant) Procedures NM HEPATOBILIARY WITH CCK Jean Amos MD [address] [facility] [address] [place] [phone] [facility] [employer] [address] [address] Referral ID Status Reason Start Date Expiration Date Visits Re quested Visits Authorized [id number] Closed 02/15/2012 08/13/2012 1 1 L HOUSEMAN Reason for Visit * - Closed Specialty Diagnoses / Procedures Referred By Contac t Referred To Contact Diagnoses Abdominal pain, RUQ (right upper quadrant) Procedures NM HEPATOBILIARY WITH CCK Jean Amos MD [address] [facility] [place] [address] [address] Referral ID Status Reason Start Date Expiration Date Visits Re quested Visits Authorized [id number] Closed 02/15/2012 08/13/2012 1 1 Encounter Details Date Type Department Care Team (Latest Contact Info) Description 02/20/2012 10:30 AM HOTEL HOUSEMAN - 02/20/2012 11:59 PM [facility] Hospital Encounter Formerly named [facility] - Nuclear Medicine [address] [place] [address] Jean Amos MD [address] [facility] [id number] [place] [address] Discharge Disposition: Home or Self Care Social [...] on file documented as of this encounter Medications at Time of Discharge Medication Sig Dispensed Refills Start Date End Date cetirizine (ZYRTEC ALLERGY) 10 MG tablet Take 10 mg by mouth once daily. 02/19/2013 famotidine (PEPCID) 20 MG tablet Take 20 mg by mouth 2 times daily. 02/19/2013 famotidine (PEPCID) 20 MG tablet Take 1 Tab by mouth at bedtime. 30 Tab 0 12/29/2011 02/21/2012 hydrocodone-acetaminophe n (NORCO) 5-325 MG tablet Take [...] mg by mouth 2 times daily. 02/19/2013 rifaximin (XIFAXAN) 550 MG tabletIndications:Bacter ial overgrowth syndrome Take 1 Tab by mouth 2 times daily for 14 days. 28 Tab 0 02/13/2012 02/21/2012 documented as of this encounter Miscellaneous Notes * Miscellaneous Scans - Document, Scanned - 03/07/2012 7:08 AM CST L HOUSEMAN documented in this encounter Plan of Treatment Not on file documented as of this encounter Procedures Procedure Name Priority Date/Time Associated Diagnosis Comments NM HEPATOBILIARY W EF Routine 02/20/2012 11:43 AM HOTEL HOUSEMAN Abdominal pain, RUQ (right upper quadrant) documented in this encounter Results * NM HEPATOBILIARY WITH CCK (02/20/2012 11:43 AM HOTEL HOUSEMAN) Anatomical Region Laterality Modality Abdomen Nuclear Medicine 02/20/2012 12:2 0 PM HOTEL HOUSEMAN Narrative 02/20/2012 12:25 PM HOTEL HOUSEMAN NUCLEAR MEDICINE HEPATOBILIARY STUDY AND GALLBLADDER EJECTION [...] of 70% Jean Amos MD NM ORDERABLES documented in this encounter Visit Diagnoses Diagnosis Abdominal pain, RUQ (right upper quadrant) Abdominal pain, right upper quadrant documented in this encounter Administered Medications Inactive Administered Medications - up to 3 most recent administrations Medication Order MAR Action Action Date Dose Rate Site sincalide (KINEVAC) injection 1.36 mcg 1.36 mcg (0.02 mcg/kg ? 68 kg Order-specific weight), Intravenous, ONCE, 1 dose, On Sun02/20/12 at 1200 $ Given 02/20/2012 11:48 AM HOTEL HOUSEMAN 1.36 mcg documented in this encounter Care Teams Progressive Care Nurse Relationship Specialty Start Date End Date Jean Joy MD PCP - OBGYN 12/27/07 Yvan Booth MD [address] [place] [phone] PCP - General 11/04/09 01/04/23 documented as of this encounter
--- OUTSIDE RECORDS SUMMARY | 2024-03-19 20:48 | XMS_ITS | Encounter Summary ---
Author Organization [facility] Address [address] [facility] [place] [address] Care Team Providers Care Electronic Health Records Specialist Name Role Phone Jean Joy MD Unavailable Yvan Booth MD Primary Care Provider [phone] Reason for Visit * Reason Onset Date Comments MEDICATION REFILL 05/28/2013 Encounter Details Date Type Department Care Team (Late st Contact Info) Description 05/28/2013 Refill [facility] - MACHINE MAINTENANCE SERVICER [address] [facility] [address] [place] [address] Jean Joy MD [address] [facility] [address] [place] [address] MEDICATION REFILL Social History Tobacco [...] on filedocumented in this encounter Care Teams Electronic Health Records Specialist Relationship Specialty Start Date End Date Jean Joy MD PCP - OBGYN 12/27/07 Yvan Booth MD [address] [place] [address] PCP - General 11/04/09 01/04/23 documented as of this encounter
--- OUTSIDE RECORDS SUMMARY | 2024-03-19 20:48 | XMS_ITS | Encounter Summary ---
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 Encounter Details Date Type Department Care Team (Late st Contact Info) Description 12/18/2008 9:15 AM CDT Office Visit [facility] - ENROLLMENT MANAGER [address] [facility] [address] [place] [id number] Jean Joy MD [address] [facility] [address] [place] [address] Routine Gynecological Examination (Primary Dx) Social History Tobacco Use Types Packs/Day Years Used Date Smoking Tobacco: Never Assessed Sex and Gender Information Value Date Recorded Sex Assigned at Not on file Gender Identity Not on file Sexual Orientation Not on file documented as of this encounter Last Filed Vital Signs Vital Sign Reading Time Taken Comments Blood Pressure 110/72 12/18/2008 9:27 AM CDT Pulse - - Temperature - - Respiratory Rate - - Oxygen Saturation - - Inhaled Oxygen Concentration - - Weight 64 kg (141 lb) 12/18/2008 9:27 AM CDT Height - - Body Mass Index - - documented in this encounter Progress Notes * Jean Joy MD - 12/18/2008 9:47 AM CDT Well Woman Yearly Exam (Premenopausal) HISTORY: Consuelo Darby is a 28 y.o. white female, Patient's last menstrual period was 11/20/2008., here for a Well Woman exam. Patient does not have other gynecological issues or concerns. Last Pap: normal Last mammogram:patient has never had a mammogram Menses: regular monthly cycle without intermenstrual spotting. Contraception: OCP (estrogen/progesterone) History Sexual Activity: History Sexual Activity ??? Sexually Active: Not on file Other pertinent ARTIST BLACKSMITH history: Sexual activity: yes, male partner STD history: none Other pertinent history: Medical, Surgical, Family, and Social History Reviewed. Allergies reviewed. Review of Systems Pertinent items are noted in HPI EXAMINATION BP 110/72 Wt 141 lb General Appearance: alert, cooperative, no distress Breasts: symmetric, nontender, no masses or discharge Heart: regular rhythm, normal S1 and S2, without murmurs, gallops or rubs Abdomen: soft without mass, non-tender, with normal bowel sounds Pelvic: Vulva and vagina appear normal. Bimanual exam reveals normal uterus and adnexa. Discharge: normal and physiologic ASSESSMENT Normal healthy female. Patient Active Problem List Diagnoses Code ??? Screening for Unspecified Condition V82.9 PLAN See orders, medications, patient instructions. Breast self exam reviewed, patient encouraged to perform monthly. Mammogram indications discussed. STD screening was not indicated. documented in this encounter Plan of Treatment Not on file documented as of this encounter Procedures Procedure Name Priority Date/Time Associated Diagnosis Comments PAP IG RFLX HPV ASCU Routine 12/18/2008 11:38 AM CDT Routine Gynecological Examination documented in this encounter Results * PAP SMEAR IG RFLX HPV ASCU (PO REF LAB) (12/18/2008 11:38 AM CDT) Diagnosis [facility] ACCOUNT BILL Comment: NEGATIVE FOR INTRAEPITHELIAL LESION AND MALIGNANCY. THIS SPECIMEN WAS RESCREENED PART OF OUR NATIONAL COVERAGE SPECIALIST PROGRAM. Specimen Adequacy [facility] ACCOUNT BILL Comment: Satisfactory for evaluation. ??Endocervical and/or squamous metaplastic cells (endocervical component) are present. Clinician Provided ICD9 [facility] ACCOUNT BILL Comment:V72.31 ; Routine pathology collector ecological examination Performed by [facility] ACCOUNT BILL Comment:Trevor Michelle , Geoscience Laboratory Technician ([facility]) QC Reviewed by [facility] ACCOUNT BILL Comment:Olga Lloyd Geoscience Laboratory Technician ([facility]) Comment . [facility] ACCOUNT BILL Note [...] 12/19/2008 12:30 AM CDT Narrative [facility] ACCOUNT BILL - 12/24/2008 12:14 PM CDT LMP / Prev Treat...PUB=[id number] No. of containers..01 CYTYC Thin Prep Vial Resulting Agency Comment [facility] [place] [address] [facility] ??[place] [phone] Jean Joy MD LAB - PATHOLOGY/CYTO LOGY ORDERABLES [facility] ACCOUNT BILL documented in this encounter Visit Diagnoses Diagnosis Routine gynecological examination- Primary documented in this encounter Care Teams Support Services Rep Relationship Specialty Start Date End Date Unknown, Provider PCP - General 09/23/07 11/03/09 Jean Joy MD PCP - OBAFSHANN 12/27/07 documented as of this encounter
--- OUTSIDE RECORDS SUMMARY | 2024-03-19 20:48 | XMS_ITS | Encounter Summary ---
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 [place] [address] Routine gynecological examination (Primary Dx) Social History Tobacco Use Types Packs/Day Years Used Date Smoking Tobacco: Never Assessed Sex and Gender Information Value Date Recorded Sex Assigned at Not on file Gender Identity Not on file Sexual Orientation Not on file documented as of this encounter Last Filed Vital Signs Vital Sign Reading Time Taken Comments Blood Pressure 118/72 01/07/2010 10:34 AM CDT Pulse - - Temperature - - Respiratory Rate - - Oxygen Saturation - - Inhaled Oxygen Concentration - - Weight 64.9 kg (143 lb) 01/07/2010 10:34 AM CDT Height - - Body Mass Index - - documented in this encounter Progress Notes * Jean Joy MD - 01/07/2010 10:50 AM CDT Well Woman Yearly Exam (Premenopausal) HISTORY: Consuelo Darby is a 29 y.o. white female, Patient's last menstrual period was 12/06/2009., here for a Well Woman exam. Patient does not have other gynecological issues or concerns. Last Pap: normal Last mammogram:patient has never had a mammogram Menses: regular monthly cycle without intermenstrual spotting. Contraception: OCP (estrogen/progesterone) History Sexual Activity: History Sexual Activity ??? Sexually Active: Not on file Other pertinent SPOOL HAULER history: none Other pertinent history: Medical, Surgical, Family, and Social History Reviewed. Allergies reviewed. Review of Systems Pertinent items are noted in HPI EXAMINATION BP 118/72 Wt 143 lb General Appearance: alert, cooperative, no distress Breasts: symmetric, nontender, no masses or discharge Heart: regular rhythm, normal S1 and S2, without murmurs, gallops or rubs Abdomen: soft without mass, non-tender, with normal bowel sounds Pelvic: Vulva and vagina appear normal. Bimanual exam reveals normal uterus and adnexa. Discharge: normal and physiologic ASSESSMENT Normal healthy female. Patient Active Problem List Diagnoses Code (none) - all problems resolved or deleted PLAN See orders, medications, patient instructions. Breast self exam reviewed, patient encouraged to perform monthly. Mammogram indications discussed. STD screening was not indicated. documented in this encounter Plan of Treatment Not on file documented as of this encounter Procedures Procedure Name Priority Date/Time Associated Diagnosis Comments PAP IG LB RFLX HPV HR ASCU RFLX 16,18 Routine 01/07/2010 10:40 AM CDT Routine gynecological examination documented in this encounter Results * PAP IG RFLX HPV ASCU RFLX 16/18 (PO REF LAB) (01/07/2010 10:40 AM CDT) Diagnosis [facility] ACCOUNT BILL Comment:NEGATIVE FOR INTRAEP ITHELIAL LESION AND MALIGNANCY. Specimen Adequacy [facility] ACCOUNT BILL Comment: Satisfactory for evaluation. ??Endocervical and/or squamous metaplastic cells (endocervical component) are present. Clinician Provided ICD9 [facility] ACCOUNT BILL Comment:V72.31 ; Routine cement block maker ecological examination Performed by [facility] ACCOUNT BILL Comment:Varun Gamboa echnologist (ASCP) Comment . [facility] ACCOUNT BILL [...] TRACT PREPARED USING PAPANICOLAOU TECHNIQUE / Unknown 01/07/2010 10:40 AM CDT 01/08/2010 5:37 AM CDT Narrative [facility] ACCOUNT BILL - 01/10/2010 8:09 PM CDT Source.............Cervical;Endocervical No. of containers..01 CYTYC Thin Prep Vial Resulting Agency Comment [facility] [address] [facility] ??[place] [id number] Jean Joy MD LAB - PATHOLOGY/CYTO LOGY ORDERABLES [facility] ACCOUNT BILL documented in this encounter Visit Diagnoses Diagnosis Routine gynecological examination- Primary documented in this encounter Care Teams Media Account Executive Relationship Specialty Start Date End Date Jean Joy MD PCP - OBGYN 12/27/07 Yvan Booth MD [address] [place] [address] PCP - General 11/04/09 01/04/23 documented as of this encounter
--- OUTSIDE RECORDS SUMMARY | 2024-03-19 20:48 | XMS_ITS | Encounter Summary ---
Author Organization [facility] Address [address] [facility] [place] [address] Care Team Providers Care Leather Splitter Name Role Phone Jean Joy MD Unavailable [phone] Yvan Booth MD Primary Care Provider [phone] Reason for Visit * Reason Comments Routine Visit Encounter Details Date Type Department Care Team (Late st Contact Info) Description 01/10/2016 10:15 AM CDT visit [facility] - BI DEVELOPER [address] [facility] [address] [place], [place] [id number] Jean Joy MD [address] [facility] [place] [address] [place]: [id number] Social History Tobacco Use Types Packs/Day Years [...] Sign Reading Time Taken Comments Blood Pressure 130/78 01/10/2016 10:11 AM CDT Pulse - - Temperature - - Respiratory Rate - - Oxygen Saturation - - Inhaled Oxygen Concentration - - Weight 89.4 kg (197 lb) 01/10/2016 10:11 AM CDT Height - - Body Mass Index 33.81 10/05/2015 11:40 AM CDT documented in this encounter Progress Notes * Jean Joy MD - 01/10/2016 10:19 AM CDT No problems or c/o Baby is active Watching diet and doing PP excercise documented in this encounter Plan of Treatment Not on file documented as of this encounter Visit Diagnoses Diagnosis care, subsequent , third trimester (HCC)- Primary documented in this encounter Care Teams Leather Splitter Relationship Specialty Start Date End Date Jean Joy MD PCP - OBGYN 12/27/07 Yvan Booth MD [address] [place] [phone] PCP - General 11/04/09 01/04/23 documented as of this encounter
--- OUTSIDE RECORDS SUMMARY | 2024-03-19 20:48 | XMS_ITS | Encounter Summary ---
Author Organization [facility] Address [address] [facility] [place] [address] Care Team Providers Care Multimedia Artist Name Role Phone Jean Joy MD Unavailable [phone] Yvan Booth MD Primary Care Provider [phone] Reason for Visit * Reason Comments Care Encounter Details Date Type Department Care Team (Late st Contact Info) Description 03/29/2016 11:15 AM STOCKING AND BOX SHOP SUPERVISOR Office Visit [facility] Medical [facility] - WOVEN WOOD SHADE ASSEMBLER [address] [facility] [address] [place] [address] Jean Joy MD [address] [facility] [place] [address] Routine follow-up (HCC) (Primary Dx) Social History Tobacco Use [...] Sign Reading Time Taken Comments Blood Pressure 122/82 03/29/2016 11:16 AM STOCKING AND BOX SHOP SUPERVISOR Pulse - - Temperature - - Respiratory Rate - - Oxygen Saturation - - Inhaled Oxygen Concentration - - Weight 84.8 kg (187 lb) 03/29/2016 11:16 AM STOCKING AND BOX SHOP SUPERVISOR Height 162.6 cm (5' 4 ) 03/29/2016 11:16 AM STOCKING AND BOX SHOP SUPERVISOR Body Mass Index 32.1 03/29/2016 11:16 AM STOCKING AND BOX SHOP SUPERVISOR documented in this encounter Functional Status Functional [...] Progress Notes * Jean Joy MD - 03/29/2016 11:28 AM CST Subjective: Consuelo Darby is a 35 y.o. female who presents 4 weeks post following a .The delivery was at 37 gestational weeks. course has been uncomplicated. Baby is doing well. Baby is feeding human milk. Bleeding thin lochia . Bowel function is normal. Bladder function is normal. depression screening: negative Objective: BP 122/82 Ht 5' 4 Wt 187 lb BMI 32.1 kg/m2 General Appearance: alert, cooperative, no distress Abdomen: soft without mass, non-tender, with normal bowel sounds Incision is healing well. Pelvic: Vulva and vagina appear normal. Bimanual exam reveals normal uterus and adnexa. Assessment: NORMAL POST- EXAM FOLLOWING Plan: See orders. Contraception options discussed. Risks and benefits reviewed. Patient's choice of contraception is oral progesterone-only contraceptive Return to office for Well-Women exam 2-3 mo KING AND BOX SHOP SUPERVISOR documented in this encounter Plan of Treatment Not on file documented as of this encounter Visit Diagnoses Diagnosis Routine follow-up (HCC)- Primary Routine follow-up documented in this encounter Care Teams Multimedia Artist Relationship Specialty Start Date End Date Jean Joy MD PCP - OBGYN 12/27/07 Yvan Booth MD [address] [place] [address] PCP - General 11/04/09 01/04/23 documented as of this encounter
--- OUTSIDE RECORDS SUMMARY | 2024-03-19 20:48 | XMS_ITS | Encounter Summary ---
Author Organization [facility] Address [address] [place] [address] Care Team Providers Care Social Services Assistant Name Role Phone Jean Joy MD Unavailable Yvan Booth MD Primary Care Provider [phone] Encounter Details Date Type Department Care Team (Latest Contact Info) Description 01/10/2012 8:39 AM CDT - 01/10/2012 11:59 PM CDT Hospital Encounter [facility] - Nuclear Medicine [address] [place] [address] Discharge Disposition: Home or Self Care Social [...] at bedtime. 30 Tab 0 12/29/2011 02/21/2012 hydrocodone-acetaminoph en (NORCO) 5-325 MG tablet Take 1 Tab by mouth every 4 hours as needed for Pain. 20 Tab 0 12/29/2011 02/07/2012 ibuprofen (MOTRIN) 200 MG tabletIndications:Heada raissa Take 200 mg by mouth every 6 hours as needed. Indications: Headache 02/19/2013 levonorgestrel-ethinyl estradiol (ALESSE; LEVLITE; AVIANE; LUTERA; LESSINA; SRONYX) 0.1-20 MG-MCG tablet Take 1 Tab by mouth once daily. 1 Packet 12 01/27/2011 01/29/2012 ondansetron (ZOFRAN) 4 MG tablet Take 1 Tab by mouth every 4 hours as needed for Nausea/Vomiting. 10 Tab 0 12/29/2011 02/07/2012 documented as of this encounter Miscellaneous Notes * Miscellaneous Scans - Document, Scanned - 01/18/2012 3:41 PM CST L ROASTER * Miscellaneous Scans - Document, Scanned - 01/18/2012 3:41 PM CST L ROASTER * Miscellaneous Scans - Document, Scanned - 01/16/2012 11:30 AM CST L ROASTER * Miscellaneous Scans - Document, Scanned - 01/16/2012 11:30 AM CST L ROASTER documented in this encounter Plan of Treatment Not on file documented as of this encounter Procedures Procedure Name Priority Date/Time Associated Diagnosis Comments FL UGI AND SMALL BOWEL SERIES Routine 01/10/2012 12:04 PM CDT Abdominal pain, unspecified site NM HEPATOBILIARY WO EF Routine 2 9:47 AM CDT Abdominal pain, unspecified site documented in this encounter Results * FL UGI AND SMALL BOWEL SERIES [...] gallbladder at 25 minutes. There is normal quvewbh-tj-lxeoo transit (first noted at 15 minutes). Procedure [...] gallbladder at 25 minutes. There is normal odlcbbg-gg-civpy transit (first noted at 15 minutes). IMPRESSION Normal radionuclide hepatobiliary scintigraphy. Yvan Booth MD NM ORDERABLES documented in this encounter Visit Diagnoses Diagnosis Abdominal pain, unspecified site documented in this encounter Care Teams Social Services Assistant Relationship Specialty Start Date End Date Jean Joy MD PCP - OBGYN 12/27/07 Yvan Booth MD [address] [place] [address] PCP - General 11/04/09 01/04/23 documented as of this encounter
--- OUTSIDE RECORDS SUMMARY | 2024-03-19 20:48 | XMS_ITS | Encounter Summary ---
Author Organization [facility] Address [address] [facility] [place] [address] Care Team Providers Care Tool Room Supervisor Name Role Phone Jean Joy MD Unavailable [phone] Yvan Booth MD Primary Care Provider [phone] Reason for Visit * Reason Comments Post-Op lap anselmo 02/22/12 Encounter Details Date Type Department Care Team (Late st Contact Info) Description 03/07/2012 10:00 AM BAND TOP MAKER Office Visit [facility] - General Surgery [address] [facility] [address] [place], [place] [id number] Jean Amos MD [address] [facility] [id number] [place] [address] Abdominal pain, RUQ (right upper quadrant) (Primary Dx) Social History Tobacco Use Types [...] on file documented as of this encounter Patient Instructions * Patient Instructions* Cass Georges - 03/07/2012 9:59 AM BAND TOP MAKER NO FOLLOW UP NEEDED AT THIS TIME PLEASE CALL THE OFFICE WITH ANY QUESTIONS OR CONCERNS AT [phone] HAVE A GREAT DAY AND THANK YOU FOR CHOOSING [facility]! TOP MAKER documented in this encounter Progress Notes * Jean Amos MD - 03/07/2012 9:59 AM CST Patient post SILC. Much improved. No pain. No diarrhea. Incision healing nicely. Path reviewed. Activity, scar, and diet instructions given. F/U prn. TOP MAKER documented in this encounter Plan of Treatment Not on file documented as of this encounter Visit Diagnoses Diagnosis Abdominal pain, RUQ (right upper quadrant)- Primary Abdominal pain, right upper quadrant documented in this encounter Care Teams Tool Room Supervisor Relationship Specialty Start Date End Date Jean Joy MD PCP - OBGYN 12/27/07 Yvan Booth MD [address] [place] [phone] PCP - General 11/04/09 01/04/23 documented as of this encounter
--- OUTSIDE RECORDS SUMMARY | 2024-03-19 20:48 | XMS_ITS | Encounter Summary ---
Author Organization [facility] Address [address] [place] [address] Care Team Providers Care Medical Driver Name Role Phone Jean Joy MD Unavailable Yvan Booth MD Primary Care Provider [phone] Reason for Visit * Reason Comments MISSED PERIOD Encounter Details Date Type Department Care Team (Late st Contact Info) Description 08/03/2015 10:30 AM CDT Office Visit [facility] - CHIEF COMPLIANCE OFFICER [address] [place] [address] Jean Joy MD [address] [place] [address] Missed period (Primary Dx) Social History Tobacco Use Types [...] Sign Reading Time Taken Comments Blood Pressure 122/70 08/03/2015 10:30 AM CDT Pulse - - Temperature - - Respiratory Rate - - Oxygen Saturation - - Inhaled Oxygen Concentration - - Weight 77 kg (169 lb 12.8 oz) 08/03/2015 10:30 A M CDT Height 162.6 cm (5' 4 ) 08/03/2015 10:30 AM CDT Body Mass Index 29.15 08/03/2015 10:30 AM CDT documented in this encounter Progress Notes * Jean Joy MD - 08/03/2015 10:54 AM CDT HISTORY: 1) CC: Chief Complaint Patient presents with ??? MISSED PERIOD 2) HPI: Consuelo Darby is a 34 y.o. female, Patient's last menstrual period was 06/12/2015., herefor a missed period / possible early Periods every 25 days since off pill Patient's elements (-14 visit is 4 or more): Pain or cramping: no Severity: Vaginal bleeding: no Nausea: mild Severity: 3 Vomiting: no Frequency: Breast tenderness: mild Fatigue:mild Menses: regular monthly cycle without intermenstrual spotting. Other pertinent NEWSPAPER MANAGING EDITOR history: none Current Outpatient Prescriptions on File Prior to Visit Medication Sig Dispense Refill ??? Cetirizine HCl (ZYRTEC PO) Take 10 mg by mouth once daily No current facility-administered medications on file prior to visit. Past Surgical History Procedure Laterality Date ??? section ??? Colonoscopy ??? Cholecystectomy, laparoscopic 02/22/2012 N/A; LAPAROSCOPIC CHOLECYSTECTOMY SINGLE INCISION ??? Cholecystectomy Social History: History Social History ??? Marital Status: Spouse Name: N/A Number of Children: N/A ??? 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 Smoking status: Former Smoker -- 0.50 packs/day Types: Cigarettes ??? Smokeless tobacco: Never Used ??? Alcohol Use: 0.0 - 1.0 oz/week 0-2 Cans of beer per week Comment: Occasional ??? Drug Use: No ??? Sexual Activity: Partners: Male Control/ Protection: Pill Other Topics Concern ??? Special Diet No Social History Narrative 3) Review of Systems (a -14 visit requires 2 to 9) Constitutional: Negative Gastrointestinal: Positive for nausea Genitourinary:Negative 4) PFSH, other pertinent history: Past Medical, Family, and Social History Reviewed. Allergies reviewed. Past Surgical History Procedure Laterality Date ??? section ??? Colonoscopy ??? Cholecystectomy, laparoscopic 02/22/2012 N/A; LAPAROSCOPIC CHOLECYSTECTOMY SINGLE INCISION ??? Cholecystectomy EXAM (-14 visit requires 12 elements from 2 or more systems) 1) Constitutional: BP 122/70 mmHg Wt 169 lb 12.8 oz BMI 29.13 kg/m2 Body mass index is 29.13 kg/(m^2). alert, cooperative, no distress 2) Extremities: no clubbing, cyanosis or edema 3) Lungs: clear to auscultation 4) Heart: regular rate and rhythm 5) Abdomen: soft without mass, non-tender, with normal bowel sounds 6) Breasts: exam not performed 7) Female Exam: External Genitalia-> No abnormality Urethreal Meatus--> No lesion Urethra--> No abnormality Vagina--> No lesion, No blood in vaginal vault. Cervix--> normal Uterus--> Normal size and position Adnexae--> No masses or tenderness Obstetric Endovaginal Ultrasound - 1st Trimester Gestational age by (LMP): 7 wks 2 days GA (by today's ultrasound): 7 wks 4 days CRL: 13.7 mm Reason for Exam: Early gestation, uncertain dating Uterine Orientation: Anteverted position. Size and Location of Myomas: none Ovaries (Describe measurements or abnormalities): Right: normal Left: normal Fluid in Cul de Sac: The cul-de-sac is free and contains normal small amount fluid FHT seen: Yes MOVEMENT: No Number of Fetuses: 1 Other Observations: Wireline Supervisor: Study performed by the interpreting physician Images will be scanned into the record. Interpreted By: Jean Joy MD ASSESSMENT Early intra-uterine EDC 03/17/16 by early US Previous C/S Severe PIH 1st PG PLAN Discussed issues and instructions ( vitamins, healthy diet, exercise, medications, no ETOH etc). RTO in 5 weeks Wants repeat C/S Orders Placed This Encounter ??? OBSTETRIC PANEL documented in this encounter Plan of Treatment Not on file documented as of this encounter Procedures Procedure Name Priority Date/Time Associated Diagnosis Comments OBSTETRIC PANEL Routine 08/13/2015 9:22 AM CDT Missed period documented in this encounter Results * OBSTETRIC PANEL (08/13/2015 9:22 AM CDT) [...] PM CDT Narrative Resulting Agency Comment [facility] [place] [id number] [facility] ??[facility] [phone] Jean Joy MD LAB - CHEMISTRY BIBIANA BLACKMAN [facility] Organization Address City/State/ZIP Co de Phone Number [facility] INSURANCE BILL [address] [place] [address] documented in this encounter Visit Diagnoses Diagnosis Missed period- Primary Irregular menstrual cycle documented in this encounter Care Teams Medical Driver Relationship Specialty Start Date End Date Jean Joy MD PCP - OBGYN 12/27/07 Yvan Booth MD [address] [place] [address] PCP - General 11/04/09 01/04/23 documented as of this encounter
--- OUTSIDE RECORDS SUMMARY | 2024-03-19 20:48 | XMS_ITS | Encounter Summary ---
Author Organization [facility] Address [address] [place] [place] [address] Care Team Providers Care Specialty Plant Supervisor Name Role Phone Jean Joy MD Unavailable [phone] Yvan Booth MD Primary Care Provider [phone] Reason for Visit * Auth/Cert - Closed Specialty Diagnoses / Procedures Referred By Contac t Referred To Contact Diagnoses Other specified disorder of gallbladder Procedures LAPAROSCOPIC CHOLECYSTECTOMY SINGLE INCISION Referral ID Status Reason Start Date Expiration Date Visits Re quested Visits Authorized [id number] Closed 1 1 Encounter Details Date Type Department Care Team (Latest Contact Info) Description 02/22/2012 11:34 AM CODE ENFORCEMENT OFFICER - 02/22/2012 5:42 PM CODE ENFORCEMENT OFFICER Hospital Encounter [facility] [address] [place] [address] Jean Amos MD [address] [facility] [id number] [place] [phone] Surgery General Discharge Disposition: Home or Self [...] Comments Blood Pressure 123/70 02/22/2012 5:15 PM CODE ENFORCEMENT OFFICER Pulse 81 02/22/2012 4:23 PM CODE ENFORCEMENT OFFICER Temperature 36.9 ??C (98.4 ??F) 02/22/2012 4:23 PM CS T Respiratory Rate 15 02/22/2012 4:23 PM CODE ENFORCEMENT OFFICER Oxygen Saturation 94% 02/22/2012 5:15 PM CODE ENFORCEMENT OFFICER Inhaled Oxygen Concentration - - Weight 67.1 kg (148 lb) 02/22/2012 11:30 AM CODE ENFORCEMENT OFFICER Height 162.6 cm (5' 4 ) 02/22/2012 11:30 AM CODE ENFORCEMENT OFFICER Body Mass Index 25.4 02/22/2012 11:30 AM CODE ENFORCEMENT OFFICER documented in this encounter Discharge Instructions * Discharge Instructions* Bridgett Felix RN - 02/22/2012 4:27 PM CODE ENFORCEMENT OFFICER Discharge Instructions for: Consuelo Darby Discharge Procedure [...] or climbing stairs. MEDICATION INSTRUCTIONS May take [id number] medication for relief of pain or discomfort. [...] a copy of the discharge instructions. 02/22/2012 ENFORCEMENT OFFICER * Discharge Instructions* Document, Scanned - 02/23/2012 12:46 PM CODE ENFORCEMENT OFFICER ENFORCEMENT OFFICER documented in this encounter Medications at Time [...] Amos MD - 02/22/2012 12:31 PM CST [facility] Jean Amos MD, FACS Patient's [...] and the risks of general anesthetic including IA, CVA, sudden or even reaction to anesthetic [...] was obtained. Plan for surgery as discussed. ENFORCEMENT OFFICER documented in this encounter Procedure Notes * Document, Scanned - 02/23/2012 12:46 PM CSTAssociated Order(s): CARDIAC RHYTHM STRIP ORDER ENFORCEMENT OFFICER documented in this encounter OR Notes * Operative - Jean Amos MD - 02/22/2012 2:50 PM CST Operative Report PATIENT: Consuelo Darby DATE OF OPERATION: 02/22/2012 PREOPERATIVE DIAGNOSIS: Biliary colic POSTOPERATIVE DIAGNOSIS: Same PROCEDURE PERFORMED: Laparoscopic cholecystectomy SURGEON: Jean Amos MD MIXING MACHINE TENDER CORK ROD: none ANESTHESIA: General. PROCEDURE: The patient was [...] This completed the procedure. Postoperative condition satisfactory. ENFORCEMENT OFFICER documented in this encounter Miscellaneous Notes * Miscellaneous Scans - Document, Scanned - 03/26/2012 9:17 AM CST ENFORCEMENT OFFICER * Miscellaneous Scans - Document, Scanned - 02/23/2012 12:46 PM CST ENFORCEMENT OFFICER documented in this encounter Plan of Treatment Not on file documented as of this encounter Procedures Procedure Name Priority Date/Time Associated Diagnosis Comments CARDIAC RHYTHM STRIP ORDER 02/23/2012 12:46 PM CODE ENFORCEMENT OFFICER LAPAROSCOPIC CHOLECYSTECTOMY (SINGLE INCISION) 02/22/2012 7:52 PM CODE ENFORCEMENT OFFICER Other specified disorder of gallbladder Special Needs LATEX ALLERGY PATHOLOGY TISSUE EXAM (STL) Routine 02/22/2012 2:40 PM CODE ENFORCEMENT OFFICER Biliary dyskinesia HCG URINE QUALITATIVE - POINT OF CARE Routine 02/22/2012 11:45 AM CODE ENFORCEMENT OFFICER documented in this encounter Results * CARDIAC RHYTHM STRIP ORDER (02/23/2012 12:46 PM CODE ENFORCEMENT OFFICER) Narrative 02/23/2012 12:46 PM CODE ENFORCEMENT OFFICER Procedure Note Document, Scanned - 02/23/2012 12:46 PM CST Scanned Document CARDIAC SERVICES ORD ERABLES * GROSS + MICRO EXAM (STL) (02/22/2012 2:40 PM CODE ENFORCEMENT OFFICER) Case Report Surgical Pathology Report ? Case: [id number] ? -- Authorizing Provider: ??Jean Amos MD ?Ordering Provider: ?? Jean Amos MD ? Ordering Location: ? [facility] ? Collected: ? 02/22/2012 ??2:40 PM ? Pathologist: ? Dhruv Holt MD ? Received: ?02/23/2012 ??7:46 AM ?Signed Out: ?02/26/2012 ??5:11 PM (Final) ? Specimen: ?Gallbladder ? 02/26/2012 5:11 PM [facility] Final Diagnosis Gallbladder, cholecystectomy: - ??Cholelithiasis and chronic cholecystitis KA/alj TUMOR BOARD: ??Negative 02/26/2012 5:11 PM [facility] Clinical History PRE OP DIAGNOSIS: Biliary dyskinesia. 02/26/2012 5:11 PM [facility] Gross Description Received in formalin in a container labeled Pjlubna Consuelo Aly, gallbladder. ??The container holds a [...] the gallbladder measures 0.2 cm maximum thickness. ??Content Development Manager sections are submitted in a single cassette. DYMary Jane/billy 02/26/2012 5:11 PM [facility] Microscopic Description Histologic examination [...] or dysplasia. (KA/alj ) 02/26/2012 5:11 PM [facility] Synoptic Report 02/26/2012 5:11 PM [facility] Miscellaneous samples (specimen) ENTIRE GALLBLADDER / Unknown 02/22/2012 2:40 PM CODE ENFORCEMENT OFFICER 02/23/2012 7:46 AM CODE ENFORCEMENT OFFICER Jean Amos MD LAB - PATHOLOGY/CYT OLOGY ORDERABLES Performing Organization Address City/State/[facility] Co de Phone Number [facility] [address] [place] [address] * HCG URINE QUALITATIVE - POINT OF CARE (IP) (02/22/2012 11:45 AM CODE ENFORCEMENT OFFICER) HCG Qual Urine negative Negative [facility] POCT TESTING QC Verified yes Yes [facility] POC T TESTING Urine specimen (specimen) URINE / Unknown 02/22/2012 11:45 AM CODE ENFORCEMENT OFFICER Jean Amos MD LAB - POINT OF CARE ORDERABLES [facility] POCT TEST[facility] [address] [place] [address] documented in this encounter Visit Diagnoses Diagnosis Biliary dyskinesia- Primary Other specified disorder of gallbladder documented in this encounter Administered Medications Inactive Administered Medications - up to 3 most recent administrations Medication Order MAR Action Action Date Dose Rate Site ceFAZolin (ANCEF) 2 g IVPB ADS Med 1 dose, Starting on Katy 02/22/12 at 1226, Until Katy 02/22/12 at 1422, Sharmila Rizo: cabinet override ceFAZolin (ANCEF) IVPB 2 g 2 g, at 100 mL/hr, Intravenous, PRE-OP MULTIPLE, Starting on Katy 02/22/12 at 1152, Until Katy 02/22/12 at 1842, Administer 30 minutes prior to surgical incision. May redose in 3 hours if surgical incision not yet closed., Pre-op $ Given 02/22/2012 1:52 PM CODE ENFORCEMENT OFFICER 2 g 100 mL/hr famotidine (PEPCID) injection 20 mg 20 mg, Intravenous, PRE-OP ONCE, 1 dose, Pre-op $ Given 02/22/2012 1:10 PM CODE ENFORCEMENT OFFICER 20 mg famotidine (PEPCID) injection ADS Med [...] , PACU $ Given 02/22/2012 3:32 PM CODE ENFORCEMENT OFFICER 25 mcg fentaNYL (SUBLIMAZE) injection ADS Med 1 dose, Starting on Katy 02/22/12 at 1532, Until Katy 02/22/12 at 1532, Bhumika Sandy: cabinet override lactated ringers infusion ADS Med 1 dose, Starting on Katy 02/22/12 at 1220, Until Katy 02/22/12 at 1255, Sharmila Rizo: cabinet override lactated ringers infusion at 20 mL/hr, Intravenous, PRE-OP CONTINUOUS, Starting on Katy 02/22/12 at 1215, Until Katy 02/22/12 at 1842, Pre-op $ New Bag/Syringe 02/22/2012 2:50 PM CODE ENFORCEMENT OFFICER mL $ New Bag/Syringe 02/22/2012 1:58 PM CODE ENFORCEMENT OFFICER mL $ New Bag/Syringe 02/22/2012 12:55 PM CODE ENFORCEMENT OFFICER 20 mL /hr Left Hand lidocaine (XYLOCAINE MPF) 1 % injection Infiltration, PRE-OP MULTIPLE, 3 doses, Starting on Katy 02/22/12 at 1205, Until Katy 02/22/12 at 1842, May be used (0.2 ml locally to anesthetize prior to insertion if patient has NKA to Lidocaine)., Pre-op $ Given 02/22/2012 12:55 PM CODE ENFORCEMENT OFFICER 2 mL Left Hand lidocaine (XYLOCAINE MPF) 1% injection ADS Med 1 dose, Starting on Katy 02/22/12 at 1220, Until Katy 02/22/12 at 1255, Sharmila Rizo: kaleighinet override ondansetron (ZOFRAN) injection 4 mg 4 mg, Intravenous, PRE-OP ONCE, 1 dose, Pre-op $ Given 02/22/2012 1:08 PM CODE ENFORCEMENT OFFICER 4 mg ondansetron (ZOFRAN) injection 4 mg 4 mg, Intravenous, POST-OP ONCE, 2 doses, PRN, May repeat x 1, PACU $ Given 02/22/2012 3:29 PM CODE ENFORCEMENT OFFICER 4 mg ondansetron (ZOFRAN) injection ADS Med 1 dose, Starting on Katy 02/22/12 at 1226, Until Katy 02/22/12 at 1308, Sharmila Rizo: kaleighinet override documented in this encounter Active and Recently Administered Medications Times are shown in CODE ENFORCEMENT OFFICER. Scheduled Medication Order 02/20/2012 02/21/2012 02/22/2012 ceFAZolin [...] on Katy 02/22/12 at 1205, Until Katy 12 at 1842, May be used (0.2 ml locally to anesthetize prior to insertion if patient has NKA to Lidocaine)., Pre-op 1255 ($ Given - Prov ider: Zeinab Blair RN) ondansetron (ZOFRAN) injection 4 mg (COMPLETED) 4 mg, Intravenous, PRE-OP ONCE, 1 dose, Pre-op 1308 ($ Given - Prov ider: Zeinab A Moriarity, RN) ondansetron (ZOFRAN) injection 4 mg (CANCELED) [...] MD) documented in this encounter Care Teams Specialty Plant Supervisor Relationship Specialty Start Date End Date Jean Joy MD PCP - OBGYN 12/27/07 Yvan Booth MD [address] [place] [phone] PCP - General 11/04/09 01/04/23 documented as of this encounter
--- OUTSIDE RECORDS SUMMARY | 2024-03-19 20:48 | XMS_ITS | Encounter Summary ---
Author Organization [facility] Address [address] [place] [address] Care Team Providers Care Transactional Paralegal Name Role Phone Jean Joy MD Unavailable [phone] Yvan Booth MD Primary Care Provider [phone] Reason for Visit * Reason Comments Routine Visit Encounter Details Date Type Department Care Team (Late st Contact Info) Description 12/21/2015 11:30 AM CDT visit [facility] - JUNIOR ORACLE DBA [address] [place] [address] Jean Joy MD [address] [place] [address] GA: [id number] Social History Tobacco Use Types Packs/Day Years [...] Sign Reading Time Taken Comments Blood Pressure 134/80 12/21/2015 11:26 AM CDT Pulse - - Temperature - - Respiratory Rate - - Oxygen Saturation - - Inhaled Oxygen Concentration - - Weight 87.5 kg (193 lb) 12/21/2015 11:26 AM CDT Height - - Body Mass Index 33.13 10/05/2015 11:40 AM CDT documented in this encounter Progress Notes * Jean Joy MD - 12/21/2015 11:43 AM CDT Active baby Some tailbone pain , otherwise doing well To do 3 hr GTT soon tdap given Got flu shot at work Will schedule repeat C/S at 39 weeks documented in this encounter Plan of Treatment Not on file documented as of this encounter Procedures Procedure Name Priority Date/Time Associated Diagnosis Comments GTT 3 HR (100G) GESTATIONAL DIAGNOSTIC Routine 12/28/2015 9:25 AM CDT care, subsequent , third trimester (HCC) documented in this encounter Results * (ABNORMAL) GTT 3 HR (100G) GESTATIONAL [...] PM CDT Narrative Resulting Agency Comment [facility] [place] [address] [facility] ??[facility] [phone] Jean Joy MD LAB - CHEMISTRY BIBIANA BLACKMAN [facility] Organization Address City/State/ZIP Co de Phone Number [facility] INSURANCE BILL [address] [place] [address] documented in this encounter Visit Diagnoses Diagnosis care, subsequent , third trimester (HCC)- Primary Need for Tdap vaccination Need for prophylactic vaccination with combined jdgivpjond-kfwxgdf-cofaafwhz (DTP) vaccine documented in this encounter Care Teams Transactional Paralegal Relationship Specialty Start Date End Date Jean Joy MD PCP - OBGYN 12/27/07 Yvan Booth MD [address] [place] [phone] PCP - General 11/04/09 01/04/23 documented as of this encounter
--- OUTSIDE RECORDS SUMMARY | 2024-03-19 20:48 | XMS_ITS | Encounter Summary ---
Author Organization [facility] Address [address] [facility] [place] [address] Care Team Providers Care Boiler Tenders Supervisor Name Role Phone Jean Joy MD Unavailable [phone] Yvan Booth MD Primary Care Provider [phone] Reason for Visit * Reason Onset Date Comments Blood Pressure 03/10/2016 Encounter Details Date Type Department Care Team (Late st Contact Info) Description 03/10/2016 Refill [facility] - RIGGING SLINGER [address] [place], [place] [id number] Jean Joy MD [address] [place] [address] Blood Pressure Social History Tobacco Use Types Packs/Day Years [...] on filedocumented in this encounter Care Teams Boiler Tenders Supervisor Relationship Specialty Start Date End Date Jean Joy MD PCP - OBGYN 12/27/07 Yvan Booth MD [address] [place] [phone] PCP - General 11/04/09 01/04/23 documented as of this encounter
--- OUTSIDE RECORDS SUMMARY | 2024-03-19 20:48 | XMS_ITS | Encounter Summary ---
Author Organization [facility] Address [address] [facility] [place] [address] Care Team Providers Care Qa Intern Name Role Phone Jean Joy MD Unavailable Yvan Booth MD Primary Care Provider [phone] Reason for Visit * Reason Comments Routine Visit Encounter Details Date Type Department Care Team (Late st Contact Info) Description 02/01/2016 11:30 AM WEIGHT LOSS CENTRE MANAGER visit [facility] - SLURRY CONTROL TENDER [address] [place] [address] Jean Joy MD [address] [place] [address] GA: [id number] Social History Tobacco Use Types Packs/Day Years [...] Sign Reading Time Taken Comments Blood Pressure 150/72 02/01/2016 11:31 AM WEIGHT LOSS CENTRE MANAGER Pulse - - Temperature - - Respiratory Rate - - Oxygen Saturation - - Inhaled Oxygen Concentration - - Weight 92.1 kg (203 lb) 02/01/2016 11:31 AM WEIGHT LOSS CENTRE MANAGER Height - - Body Mass Index 34.84 01/21/2016 2:24 PM WEIGHT LOSS CENTRE MANAGER documented in this encounter Progress Notes * Jean Joy MD - 02/01/2016 11:42 AM CST Active baby No c/o No MOREIRA No edema HT LOSS CENTRE MANAGER documented in this encounter Plan of Treatment Not on file documented as of this encounter Visit Diagnoses Diagnosis care, subsequent , third trimester (HCC)- Primary documented in this encounter Care Teams Qa Intern Relationship Specialty Start Date End Date Jean Joy MD PCP - OBGYN 12/27/07 Yvan Booth MD [address] [place] [phone] PCP - General 11/04/09 01/04/23 documented as of this encounter
--- OUTSIDE RECORDS SUMMARY | 2024-03-19 20:48 | XMS_ITS | Encounter Summary ---
Author Organization [facility] Address [address] [place] [address] Care Team Providers Care Shot Polisher And Inspector Name Role Phone Jean Joy MD Unavailable [phone] Yvan Booth MD Primary Care Provider [phone] Reason for Visit * Reason Comments Artistic Associate Routine Exam Encounter Details Date Type Department Care Team (Late st Contact Info) Description 02/19/2013 11:15 AM DRY CLEANER APPRENTICE Office Visit [facility] Medical [facility] - NEUROLOGY HOSPITALIST [address] [place] [address] Jean Joy MD [address] [place] [address] Routine gynecological examination (Primary Dx) [...] Sign Reading Time Taken Comments Blood Pressure 120/80 02/19/2013 11:21 AM DRY CLEANER APPRENTICE Pulse - - Temperature - - Respiratory Rate - - Oxygen Saturation - - Inhaled Oxygen Concentration - - Weight 73 kg (161 lb) 02/19/2013 11:21 AM DRY CLEANER APPRENTICE Height - - Body Mass Index 27.64 02/22/2012 11:30 AM DRY CLEANER APPRENTICE documented in this encounter Progress Notes * Jean Joy MD - 02/19/2013 12:17 PM CST Well Woman Yearly Exam (Premenopausal) HISTORY: Consuelo Darby is a 32 y.o. white female, Patient's last menstrual period was 02/10/2013., here for a Well Woman exam. Will take OCP's continuously to try to decrease migraine MOREIRA's Patient does not have other gynecological issues or concerns. Last Pap: normal Last mammogram:patient has never had a mammogram Menses: regular monthly cycle without intermenstrual spotting., Flow is light Contraception: OCP (estrogen/progesterone) History Sexual Activity: History Sexual Activity ??? Sexually Active: Not on file Other pertinent OIL AND GAS DRAFTER history: none Other pertinent history: Medical, Surgical, Family, and Social History Reviewed. Allergies reviewed. Review of Systems Pertinent items are noted in HPI EXAMINATION BP 120/80 Wt 161 lb General Appearance: alert, cooperative, no distress Breasts: symmetric, nontender, no masses or discharge Heart: regular rhythm, normal S1 and S2, without murmurs, gallops or rubs Abdomen: Soft without mass, non-tender Pelvic: Vulva and vagina appear normal. Bimanual exam reveals normal uterus and adnexa. Discharge: normal and physiologic ASSESSMENT Normal healthy female. Patient Active Problem List Diagnosis ??? GERD (gastroesophageal reflux disease) ??? Abdominal pain, generalized ??? Irregular bowel habits PLAN See orders, medications, patient instructions. Breast self exam reviewed, patient encouraged to perform monthly. Mammogram indications discussed. STD screening was not indicated. CLEANER APPRENTICE documented in this encounter Plan of Treatment Not on file documented as of this encounter Procedures Procedure Name Priority Date/Time Associated Diagnosis Comments PAP IG LB RFLX HPV HR ASCU RFLX 16,18 Routine 02/19/2013 11:27 AM DRY CLEANER APPRENTICE Routine gynecological examination documented in this encounter Results * PAP IG RFLX HPV ASCU RFLX 16/18 (PO REF LAB) (02/19/2013 11:27 AM DRY CLEANER APPRENTICE) Diagnosis [facility] ACCOUNT BILL Comment:NEGATIVE FOR INTRAEP ITHELIAL LESION AND MALIGNANCY. Specimen Adequacy [facility] ACCOUNT BILL Comment: Satisfactory for evaluation. ??Endocervical and/or squamous metaplastic cells (endocervical component) are present. Clinician Provided ICD9 [facility] ACCOUNT BILL Comment:V72.31 ; Routine certified composites technician ecological examination Performed by [facility] ACCOUNT BILL Comment:Elizabeth Ovalle, Cyto technologist (ASCP) Comment . [facility] ACCOUNT [...] TRACT PREPARED USING PAPANICOLAOU TECHNIQUE / Unknown 02/19/2013 11:27 AM DRY CLEANER APPRENTICE 02/20/2013 2:31 AM DRY CLEANER APPRENTICE Narrative [facility] ACCOUNT BILL - 02/21/2013 4:18 PM DRY CLEANER APPRENTICE No. of containers..01 CYTYC Thin Prep Vial Resulting Agency Comment [facility] [address] [facility] ??[place] [id number] Jean Joy MD LAB - PATHOLOGY/CYTO LOGY ORDERABLES [facility] ACCOUNT BILL documented in this encounter Visit Diagnoses Diagnosis Routine gynecological examination- Primary documented in this encounter Care Teams Shot Polisher And Inspector Relationship Specialty Start Date End Date Jean Joy MD PCP - OBGYN 12/27/07 Yvan Booth MD [address] [place] [id number] PCP - General 11/04/09 01/04/23 documented as of this encounter
--- OUTSIDE RECORDS SUMMARY | 2024-03-19 20:48 | XMS_ITS | Encounter Summary ---
Author Organization [facility] Address [address] [facility] [place] [address] Care Team Providers Care Customer Care Consultant Name Role Phone Jean Joy MD Unavailable [phone] Yvan Booth MD Primary Care Provider [phone] Reason for Visit * Reason Comments Routine Visit Encounter Details Date Type Department Care Team (Late st Contact Info) Description 02/29/2016 10:30 AM NETWORK DESKTOP SUPPORT SPECIALIST visit [facility] Medical [facility] - FOOD PACKER [address] [place] [address] Jean Joy MD [address] [facility] [place] [address] GA: [id number] Social History Tobacco Use Types Packs/Day Years [...] Sign Reading Time Taken Comments Blood Pressure 160/92 02/29/2016 10:20 AM NETWORK DESKTOP SUPPORT SPECIALIST Pulse - - Temperature - - Respiratory Rate - - Oxygen Saturation - - Inhaled Oxygen Concentration - - Weight 94.8 kg (209 lb) 02/29/2016 10:20 AM NETWORK DESKTOP SUPPORT SPECIALIST Height - - Body Mass Index 35.87 01/21/2016 2:24 PM NETWORK DESKTOP SUPPORT SPECIALIST documented in this encounter Progress Notes * Jean Joy MD - 02/29/2016 10:41 AM CST Had MOREIRA last PM, no c/o today Minimal edema No visual changes GHTN with Hx of severe PIH at 37w 4d Will proceed with delivery ORK DESKTOP SUPPORT SPECIALIST documented in this encounter Plan of Treatment Not on file documented as of this encounter Visit Diagnoses Diagnosis care, subsequent , third trimester (HCC)- Primary documented in this encounter Care Teams Customer Care Consultant Relationship Specialty Start Date End Date Jean Joy MD PCP - OBGYN 12/27/07 Yvan Booth MD [address] [place] [address] PCP - General 11/04/09 01/04/23 documented as of this encounter
--- OUTSIDE RECORDS SUMMARY | 2024-03-19 20:48 | XMS_ITS | Encounter Summary ---
Author Organization [facility] Address [address] [place] [address] Care Team Providers Care Digital Printer Operator Name Role Phone Jean Joy MD Unavailable [phone] Yvan Booth MD Primary Care Provider [phone] Reason for Visit * Reason Comments Follow-up possible preop lap c hole, still having pain and nausea Encounter Details Date Type Department Care Team (Late st Contact Info) Description 02/21/2012 9:45 AM INSEAM TRIMMER Office Visit [facility] - General Surgery [facility] [facility] [address] [place] [address] Jean Amos MD [address] [facility] [address] [place] [address] Biliary colic (Primary Dx) Social History Tobacco Use Types [...] Sign Reading Time Taken Comments Blood Pressure 141/91 02/21/2012 10:14 AM INSEAM TRIMMER Pulse 127 02/21/2012 10:14 AM INSEAM TRIMMER Temperature - - Respiratory Rate 20 02/21/2012 10:14 AM INSEAM TRIMMER Oxygen Saturation 98% 02/21/2012 10:14 AM INSEAM TRIMMER Inhaled Oxygen Concentration - - Weight 67.6 kg (149 lb) 02/21/2012 10:14 AM INSEAM TRIMMER Height 162.6 cm (5' 4 ) 02/21/2012 10:14 AM INSEAM TRIMMER Body Mass Index 25.58 02/21/2012 10:14 AM INSEAM TRIMMER documented in this encounter Patient Instructions * Patient Instructions* Lauren Milian - 02/21/2012 10:46 AM INSEAM TRIMMER JEAN AMOS M.D. [address] [place] [address] OFFICE: [phone] FAX: [phone] SURGICAL INSTRUCTION SHEET Consuelo Darby HAS BEEN SCHEDULED FOR SURGERY AT [facility] ON 02-22-12 YOU WILL NEED TO ARRIVE AT 11:30 AM. YOUR SURGICAL PROCEDURE WILL BEGIN AT APPROXIMATELY 1:30. PREPARATION FOR YOUR SURGERY ?? DO NOT DRIVE YOURSELF TO THE PROCEDURE! HAVE A RIDE ARRANGED ?? NOTHING TO EAT OR DRINK ( INCLUDING WATER) AFTER MIDNIGHT THE NIGHT BEFORE. (NO GUM, MINTS OR CIGARETTES). ?? STOP TAKING ASPIRIN PRODUCTS AND FISH OIL 5 DAYS PRIOR TO SURGERY. ?? BRING A CURRENT LIST OF MEDICATIONS OR BRING THE MEDICINE BOTTLES. ?? TAKE YOUR MORNING MEDICATION, ACCORDING TO PHYSICIAN INSTRUCTION, WITH A SMALL SIP OF WATER. ?? PLEASE LEAVE ANY VALUABLES, JEWELRY, WATCHES, ETC. AT HOME. YOU CAN NOT WEAR THEM IN THE OPERATING ROOM AND WE DO NOT WANT TO RISK LOSING THEM! ?? WE ALSO RECOMMEND YOU SHOWER WITH AN ANTIBACTERIAL SOAP SUCH DIAL THE DAY OF YOUR SURGERY TO CUT DOWN ON ANY BACTERIA ON YOUR SKIN. IF YOU HAVE ANY QUESTIONS PLEASE CONTACT THE OFFICE AT [phone] HAVE A GREAT DAY AND THANK YOU FOR CHOOSING SS! AM TRIMMER documented in this encounter Progress Notes * Jean Amos MD - 02/21/2012 5:54 PM CST Patient here for F/U of her HIDA. She had significant pain and nausea and vomiting afterwards despite EF being normal. Patient likely has biliary colic. I had a long discussion that her situation is not typical. This could be a GI problem and not related to her GB but she continues to have post prandial type pain. I discussed again in great detail the procedure of laparoscopic possible open cholecystectomy for treatment. I also discussed that this may not improve her symptoms at all. Patient understands and wants to proceed with cholecystectomy. I also discussed her situation with Dr Lopez agrees with cholecystectomy given her symptoms. PE: unchanged as is history. Plan anselmo. AM TRIMMER documented in this encounter Plan of Treatment Not on file documented as of this encounter Visit Diagnoses Diagnosis Biliary colic- Primary Calculus of gallbladder without mention of cholecystitis or obstruction documented in this encounter Care Teams Digital Printer Operator Relationship Specialty Start Date End Date Jean Joy MD PCP - OBGYN 12/27/07 Yvan Booth MD [address] [place] [phone] PCP - General 11/04/09 01/04/23 documented as of this encounter
--- OUTSIDE RECORDS SUMMARY | 2024-03-19 20:48 | XMS_ITS | Encounter Summary ---
Author Organization [facility] Address [address] [place] [address] Care Team Providers Care Medical Anthropology Director Name Role Phone Unknown, Provider Primary Care Provider Unavaila ble Encounter Details Date Type Department Care Team (Late st Contact Info) Description 12/17/2007 Orders Only [facility] Medical Group - CHARTER DRIVER [address] [facility] [address] [place], [place] [id number] Jean Joy MD [address] [facility] [place] [address] Social History Tobacco Use Types Packs/Day Years [...] Diagnosis Comments PAP IG RFLX HPV ASCU 12/17/2007 10:46 AM CDT documented in this encounter Results * PAP SMEAR IG RFLX HPV ASCU (PO REF LAB) (12/17/2007 10:46 AM CDT) [facility] ACCOUNT BILL Diagnosis [facility] ACCOUNT BILL Comment:NEGATIVE FOR INTRAEP ITHELIAL LESION AND MALIGNANCY. Specimen Adequacy [facility] ACCOUNT BILL Comment: Satisfactory for evaluation. ??Endocervical and/or squamous metaplastic cells (endocervical component) are present. [facility] ACCOUNT BILL Clinician Provided ICD9 [facility] ACCOUNT BILL Comment:V72.31 ; Routine customer relationship specialist ecological examination Performed by [facility] ACCOUNT BILL Comment:Solomon Baum, Cytotec hnologist ([facility]) QC Reviewed by [facility] ACCOUNT BILL Comment:Bianca Warner upervisory Web Services Professional ([facility]) Comment . [facility] ACCOUNT BILL . [facility] ACCOUNT BILL Comment: This liquid based ThinPrep(R) pap test was screened with the use of an image guided system. Note [facility] ACCOUNT BILL Comment: The Pap smear is a screening test designed to aid in the detection of premalignant and malignant conditions of the uterine cervix. ??It is not a diagnostic procedure and should not be used as the sole means of detecting cervical cancer. ??Both false-positive and false-negative reports do occur. ? . Reflex [facility] ACCOUNT BILL Comment: The HPV DNA reflex criteria were not met with this specimen result therefore, no HPV testing was performed. ? . 12/17/2007 10:4 6 AM CDT 12/18/2007 4:35 AM CDT Narrative [facility] ACCOUNT BILL - 12/20/2007 2:23 PM CDT No. of containers..01 CYTYC Thin Prep Vial Resulting Agency Comment [address] ??[place] [id number] Jean Joy MD LAB - PATHOLOGY/CYTO LOGY ORDERABLES [facility] ACCOUNT BILL documented in this encounter Visit Diagnoses Not on filedocumented in this encounter Care Teams Medical Anthropology Director Relationship Specialty Start Date End Date Unknown, Provider PCP - General 09/23/07 11/03/09 documented as of this encounter
--- OUTSIDE RECORDS SUMMARY | 2024-03-19 20:48 | XMS_ITS | Encounter Summary ---
Author Organization [facility] Address [address] [place] [address] Care Team Providers Care Web Design Instructor Name Role Phone Jean Joy MD Unavailable [phone] Yvan Booth MD Primary Care Provider [phone] Reason for Visit * Reason Comments Pain Abdominal Encounter Details Date Type Department Care Team (Late st Contact Info) Description 01/24/2012 10:00 AM CISCO CERTIFIED INTERNETWORK EXPERT Office Visit [facility] [address] [facility] [address] [place] [address] Sathya Foster MD [address] [facility] [address] [place], [place] [id number] Epigastric pain (Primary Dx); Altered bowel habits Social History Tobacco Use Types Packs/Day Years [...] Sign Reading Time Taken Comments Blood Pressure 118/68 01/24/2012 10:04 AM CISCO CERTIFIED INTERNETWORK EXPERT Pulse 92 01/24/2012 10:04 AM CISCO CERTIFIED INTERNETWORK EXPERT Temperature - - Respiratory Rate 18 01/24/2012 10:04 AM CISCO CERTIFIED INTERNETWORK EXPERT Oxygen Saturation - - Inhaled Oxygen Concentration - - Weight 68.5 kg (151 lb) 01/24/2012 10:04 AM CISCO CERTIFIED INTERNETWORK EXPERT Height 162.6 cm (5' 4 ) 01/24/2012 10:04 AM CISCO CERTIFIED INTERNETWORK EXPERT Body Mass Index 25.92 01/24/2012 10:04 AM CISCO CERTIFIED INTERNETWORK EXPERT documented in this encounter Patient Instructions * Patient Instructions* Pilar Lerma - 01/24/2012 11:04 AM CISCO CERTIFIED INTERNETWORK EXPERT MIRALAX/GATORADE COLONOSCOPY PREP Please arrive at 9:30am for your procedure which is scheduled at 11:00am, on 02/08/12. Please register at: [facility] [address] [place] [id number] [address]: heading west on [address], take the [address] EXIT. Turn left onto [facility]. Continue 1 mile to the hospital. [place] [address]: heading east on [address], take the [place] exit, EXIT 22, toward [facility].Continue to follow [place] south for 1.[address] miles. [address] left onto [facility]. Turn left into the hospital entrance. From -30: heading west on [address]/ -30, take the [address] [facility]. Turn right onto [address] for 1.[address] miles. [address] right onto [address]. Turn left into the hospital entrance. From [place]: heading east on [address]/ -30, take the [address] [facility]. Turn left onto [address] north. Continue for 1.[address]. [address] right onto [facility]. Turn left into thehospital entrance. Your prescription has been sent to your pharmacy. IF YOU ARE TAKING ANY MEDICATIONS TO THIN YOUR BLOOD (COUMADIN, ASPIRIN, WARFARIN, ALEVE, NAPROSYN AND PLAVIX) PLEASE SPEAK WITH YOUR ORDERING PHYSICIAN REGARDING THE USE OF THESE MEDICATIONS AROUND THE TIME OF YOUR PROCEDURE. WE PREFER THEM TO BE STOPPED 5 DAYS PRIOR TO YOUR EXAM. ALSO, PLEASE STOP ANY PRESCRIPTION IRON 1 WEEK PRIOR TO YOUR PROCEDURE. THE DAY BEFORE your procedure: CLEAR LIQUIDS ONLY FOR BREAKFAST, LUNCH AND DINNER. This includes water, black coffee, tea, soda, jello (NO RED) Beef or Chicken broth, apple juice or white grape juice, popsicles (NOT RED). When in doubt??? if you can???t read through it, it is not considered clear liquid! Preparation timeline: IF YOU ARE WORKING the day before your procedure, follow these instructions: AT 4:00 pm - Drink one full 10 oz bottle of Magnesium Citrate AT 5:00 pm - Mix the entire 255 Gm. bottle of Miralax with the 64 oz Gatorade in a pitcher. (No RED Gatorade) Use Crystal Light if you are diabetic. Mix the solution in a pitcher until all is dissolved. Drink an 8 oz. glass every 10 - 15 minutes until the solution is gone. You may continue to have clear liquids until midnight. AT 7:00 pm - Drink one full 10 oz bottle of Magnesium Citrate PLEASE HAVE NOTHING TO EAT OR DRINK AFTER MIDNIGHT. Except for medications for blood pressure, heart or seizure, which may be taken with a sip of water the morning of your procedure. THE DAY OF your procedure: 1) BRING YOUR CURRENT MEDICATIONS IN THEIR ORIGINAL CONTAINERS WITH YOU TO THE PROCEDURE. 2) BRING SOMEONE TO DRIVE YOU TO YOUR PROCEDURE as you will be sedated and unable to drive yourselfhome. There is a comfortable waiting area with complimentary beverages available for your diesel truck driver during their wait period. 3) The physician will discuss the findings with you and your family members following your procedure. Thank you for allowing us to participate in your care. If you have any questions regarding this procedure or preparation for it, please call our office [phone]. PREPARATION FOR UPPER ENDOSCOPY Please arrive at 9:30am for your procedure which is scheduled at 11:00am, on 02/08/12. Please register at: [facility] at [address] [address] [address] From : heading west on , take the [facility] EXIT. Turn left onto [facility]. Continue 1 mile to the hospital. From : heading east on , take the exit, EXIT 22, toward [facility].Continue to follow [address] south for 1.[address] miles. Turn left onto [facility]. Turn left into the hospital entrance. From : heading west on [address]/ , take the [address] [facility]. Turn right onto [place] for 1.6 miles. Turn right onto [facility]. Turn left into the hospital entrance. From : heading east on [address]/ , take the -141 ramp toward [place]. Turn left onto [place] north. Continue for 1.[address]. [address] right onto [facility]. Turn left into thehospital entrance. NO FOOD OR DRINK AFTER MIDNIGHT BEFORE YOUR EXAM. MEDICATION INSTRUCTIONS: DISCUSS WELL IN ADVANCE OF YOUR PROCEDURE: If you are taking Persantine, Heparin, Coumadin (Warfarin) or Plavix as prescribed by your physician, please phone us at [phone] well in advance of your procedure. 3 DAYS BEFORE your procedure, stop taking any blood thinners, such as Aspirin. Motrin, Advil, Aleveor Naprosyn. 1 WEEK BEFORE your procedure, please stop any prescription iron medication. ON THE DAY OF YOUR PROCEDURE: Important medications, such as heart or blood pressure medications may be taken the morning of your test with a ???sip? of water. DO NOT EAT OR DRINK ANYTHING AFTER MIDNIGHT! Except for important medications such as blood pressure, heart or seizure medications, which may betaken the morning of your procedure with a sip of water. ON THE DAY OF your procedure BRING YOUR MEDS AND A BALLAST CLEANING MACHINE OPERATOR with you: BRING YOUR CURRENT MEDICATIONS IN THEIR ORIGINAL CONTAINERS WITH YOU TO YOUR PROCEDURE. BRING SOMEONE TO DRIVE YOU HOME. (The medication you will receive will prevent you from driving or working safely the day of your exam). There is a comfortable waiting area with complimentary beverages available for your diesel truck driver during their wait period. The physician will discuss the findings with you and your family members following your procedure. Thank you for allowing us to participate in your care. If you have any questions regarding this procedure or preparation for it, please call our office [phone]. O CERTIFIED INTERNETWORK EXPERT documented in this encounter Progress Notes * Sathya Foster MD - 01/24/2012 10:51 AM CST GASTROENTEROLOGY INITIAL VISIT NOTE DEMOGRAPHICS: Patient: Consuelo Darby : 1980 Referring MQuiana: Yvan Booth Reason for consultation: Abdominal pain, irregular bowel habits. HISTORY OF PRESENT ILLNESS: 31 y.o.female with irregular bowel habits for a few years but now significant epigastric pain for 1month. Negative RUQ U/S, HIDA (withougtCCK) and CT. Pain is usually worse after food and may last hours. Pain may radiate to upper back. A lot of bloating. Alternating diarrhea and constipation. No fevers, chills, weight loss, BRBPR, weight loss. No family history of GI disease. PAST HISTORY: No past medical history on file. Past Surgical History Procedure Date ??? section ALLERGIES: Allergies Allergen Reactions ??? Latex MEDICATIONS: Current Outpatient Prescriptions Medication Sig Dispense Refill ??? cetirizine (ZYRTEC ALLERGY) 10 MG tablet Take 10 mg by mouth once daily. ??? ibuprofen (MOTRIN) 200 MG tablet Take 200 mg by mouth every 6 hours as needed. ??? hydrocodone-acetaminophen (NORCO) 5-325 MG tablet Take 1 Tab by mouth every 4 hours as needed for Pain. 20 Tab 0 ??? famotidine (PEPCID) 20 MG tablet Take 1 Tab by mouth at bedtime. 30 Tab 0 ??? ondansetron (ZOFRAN) 4 MG tablet Take 1 Tab by mouth every 4 hours as needed for Nausea/Vomiting. 10 Tab 0 ??? levonorgestrel-ethinyl estradiol (ALESSE; LEVLITE; AVIANE; LUTERA; LESSINA; SRONYX) 0.1-20 MG-MCG tablet Take 1 Tab by mouth once daily. 1 Packet 12 History Social History ??? Marital Status: Single Spouse Name: N/A Number of Children: N/A ??? Years of Education: N/A Occupational History ??? Not on file. Social History Main Topics ??? Smoking status: Current Everyday Smoker -- 0.5 packs/day ??? Smokeless tobacco: Not on file ??? Alcohol Use: Yes Occasional ??? Drug Use: No ??? Sexually Active: Not on file Other Topics Concern ??? Not on file Social History Narrative ??? No narrative on file Family History Problem Relation Age of Onset ??? Cancer Maternal Grandfather Lung ??? Diabetes Maternal Grandfather ??? Diabetes Maternal Grandmother ??? Hypertension Mother ??? Thyroid Disease Mother REVIEW OF SYSTEMS: Per HPI unless noted below: General ROS: negative Psychological ROS: negative Ophthalmic ROS: negative ENT ROS: negative Allergy and Immunology ROS: negative Hematological and Lymphatic ROS: Neg Endocrine ROS: negative Breast ROS: negative Respiratory ROS: negative Cardiovascular ROS: negative Gastrointestinal ROS: per HPI Genito-Urinary ROS: irregular menses Musculoskeletal ROS: negative Neurological ROS: negative Dermatological ROS: negative PHYSICAL EXAM: Vitals: 01/24/12 1004 BP: 118/68 Pulse: 92 Resp: 18 Weight: 151 lb (68.493 kg) Body mass index is 25.92 kg/(m^2). Awake, alert and oriented x 3. Well-developed, in no acute distress. Normocephalic. Conjunctiva without erythema. PERRLA. TMs normal. Pharynx clear. Clear to auscultation bilaterally. No abnormal respiratory effort or retraction noted. Breath sounds are positive bilaterally. Regular rate, rhythm without murmur. Epigastric> lower abdominal tenderness to palpation. No distention or rebound. Normal to inspection. Warm, dry, supple, with no changes in moles or sores that will not heal. alert, oriented, normal speech, no focal findings or movement disorder noted nml appearance LABS: Component Name 12/29/11134211/04/09 14009/25/07 0535 09/23/07 1205 SODIUM 139 141 136* 134.* POTASSIUM 3.6 4.4 4.2 4.5 CHLORIDE 105 105 108* 104. CO2 26 22.7 25 20.* BUN 6* 10.6 13 8. CREATININE 0.60 0.84 0.9 .7 GLUCOSE 80 128* 77 81. Component Name 12/29/11134211/04/09 1405 09/25/07 0535 09/24/07 1344 09/24/07 0156 09/23/07 1205 WBC 7.03 8.10 11.37* 9.81* -- 16.70* HGB 14.2 14.8 10.0* 9.8* 10.3* -- PLTCOUNT 308 252 89* 70* -- 185 MCV 92.4 89.6 93.4* 90.5 -- 91.7 INR -- -- -- -- -- .86* Component Name 12/29/11 13411/04/09 1405 09/25/07 0535 09/23/07 1205 ALBUMIN 3.9 4.6 2.3* 3.1* ALKPHOS 60 55 125* 195.* TBIL 0.4 0.2 0.3 .3 AST 18 20 81* 375.* ALT 22 14 113* 228.* Component Name 12/29/11 1343 AMYLASE 22 LIPASE 95 FERRITIN -- IRON -- Pertinent radiology: Assessment/Plan: Pt is 31 y.o. female with: Epigastric pain- rule out PUD disease etc. Will schedule EGD and start PPI. Changes in bowel habits- more chronic symptoms. Colonoscopy. I have discussed the above recommendations and their risks, benefits, and alternatives, with the patient and any family present, and all agreed with the plan. All questions were answered. O CERTIFIED INTERNETWORK EXPERT documented in this encounter Plan of Treatment Scheduled Orders Name Type Priority Associated Diagnoses Orde r Schedule ENDOSCOPY, COLON, DIAGNOSTIC GI Routine Epigastric pain Altered bowel habits Ordered: 01/24/2012 documented as of this encounter Procedures Procedure Name Priority Date/Time Associated Diagnosis Comments TISSUE TRANSGLUTAMINASE AB IGA Routine 01/24/2012 11:07 AM CISCO CERTIFIED INTERNETWORK EXPERT Epigastric pain Altered bowel habits IGA BLOOD Routine 01/24/2012 11:07 AM CISCO CERTIFIED INTERNETWORK EXPERT Epigastric pain Altered bowel habits documented in this encounter Results * IGA BLOOD (01/24/2012 11:07 AM CISCO CERTIFIED INTERNETWORK EXPERT) IgA Quantitative 399 91 - 414 mg/dL [facility] ACCOUNT BILL Blood specimen (specimen) BLOOD SPECIMEN / Unknown 01/24/2012 11:07 AM CISCO CERTIFIED INTERNETWORK EXPERT 01/24/2012 2:05 PM CISCO CERTIFIED INTERNETWORK EXPERT Narrative Resulting Agency Comment [facility] [address] ??[facility] [phone] Sathya Foster MD LAB - CHEMISTRY BIBIANA BLACKMAN [facility] ACCOUNT BILL * TISSUE TRANSGLUTAMINASE AB IGA (01/24/2012 11:07 AM CISCO CERTIFIED INTERNETWORK EXPERT) TTG Antibody IgA <2 0 - 3 [...] BLOOD SPECIMEN / Unknown 01/24/2012 11:07 AM CISCO CERTIFIED INTERNETWORK EXPERT 01/24/2012 2:05 PM CISCO CERTIFIED INTERNETWORK EXPERT Narrative Resulting Agency Comment [facility] [place] [address] ??[facility] [phone] Sathya Foster MD LAB - SEROLOGY ORDER NISSA [facility] ACCOUNT BILL documented in this encounter Visit Diagnoses Diagnosis Epigastric pain- Primary Abdominal pain, epigastric Altered bowel habits Other symptoms involving digestive system documented in this encounter Care Teams Web Design Instructor Relationship Specialty Start Date End Date Jean Joy MD PCP - OBGYN 12/27/07 Yvan Booth MD [address] [place] [address] PCP - General 11/04/09 01/04/23 documented as of this encounter
--- OUTSIDE RECORDS SUMMARY | 2024-03-19 20:48 | XMS_ITS | Encounter Summary ---
Author Organization [facility] Address [address] [place] [address] Care Team Providers Care Aircraft Maintenance Instructor Name Role Phone Jean Joy MD Unavailable [phone] Yvan Booth MD Primary Care Provider [phone] Reason for Referral * - Closed Specialty Diagnoses / Procedures Referred By Contac t Referred To Contact Diagnoses Abdominal pain, RUQ (right upper quadrant) Procedures NM HEPATOBILIARY WITH CCK Jean Amos MD [address] [place] [id number] [facility] [employer] [address] [address] Referral ID Status Reason Start Date Expiration Date Visits Re quested Visits Authorized [id number] Closed 02/15/2012 08/13/2012 1 1 LING SPECIALIST Reason for Visit * Reason Comments Consultation discuss GB procedure Encounter Details Date Type Department Care Team (Late st Contact Info) Description 02/15/2012 9:45 AM LABELING SPECIALIST Office Visit [facility] - General Surgery [address] [place] [address] [address] [place] [address] Jean Amos MD [id number] [place] [id number] Abdominal pain, RUQ (right upper quadrant) [...] Sign Reading Time Taken Comments Blood Pressure 137/84 02/15/2012 9:42 AM LABELING SPECIALIST Pulse 123 02/15/2012 9:42 AM LABELING SPECIALIST Temperature - - Respiratory Rate - - Oxygen Saturation 99% 02/15/2012 9:42 AM LABELING SPECIALIST Inhaled Oxygen Concentration - - Weight 68.9 kg (152 lb) 02/15/2012 9:42 AM LABELING SPECIALIST Height 164.6 cm (5' 4.8 ) 02/15/2012 9:42 AM LABELING SPECIALIST Body Mass Index 25.45 02/15/2012 9:42 AM LABELING SPECIALIST documented in this encounter Patient Instructions * Patient Instructions* Lauren Milian - 02/15/2012 10:34 AM LABELING SPECIALIST HIDA SCAN SCHEDULED Sunday02-20-12 AT 11:00, ARRIVE AT 10:40 AM, [facility] OUTPATIENT REGISTRATION GROUND FLOOR NOTHING TO EAT OR DRINK AFTER MIDNIGHT OFFICE VISIT SCHEDULED ON Sunday02-21-12 AT 9:[address] [facility] OFFICE SURGERY SCHEDULED 02-22-12 AT 1:30, ARRIVING AT 11:30. WE WILL GIVE YOU FURTHER SURGICAL INSTRUCTIONS AT YOU NEXT OFFICE VISIT LING SPECIALIST documented in this encounter Progress Notes * Lauren Milian - 02/15/2012 11:53 AM CST Instructions discussed and mailed to patient. Surgery scheduled 02-22-12 and instructions will be reviewed at next visit. 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 Review of Systems CONSTITUTIONAL: Denies fever, chills, [...] and the risks of general anesthetic including [place], CVA, sudden or even reaction to anesthetic medications were discussed. The patient understands the risks, any and all questions were answered to the patient's satisfaction. Await HIDA with EF results. LING SPECIALIST documented in this encounter Plan of Treatment Not on file documented as of this encounter Results * NM HEPATOBILIARY WITH CCK (02/20/2012 11:43 AM LABELING SPECIALIST) Anatomical Region Laterality Modality Abdomen Nuclear Medicine 02/20/2012 12:2 0 PM LABELING SPECIALIST Narrative 02/20/2012 12:25 PM LABELING SPECIALIST NUCLEAR MEDICINE HEPATOBILIARY STUDY AND GALLBLADDER EJECTION [...] quadrant)- Primary Abdominal pain, right upper quadrant Abdominal pain, RUQ (right upper quadrant) Abdominal pain, right upper quadrant documented in this encounter Care Teams Aircraft Maintenance Instructor Relationship Specialty Start Date End Date Jean Joy MD PCP - OBGYN 12/27/07 Yvan Booth MD [address] [place] [id number] PCP - General 11/04/09 01/04/23 documented as of this encounter
--- OUTSIDE RECORDS SUMMARY | 2024-03-19 20:48 | XMS_ITS | Encounter Summary ---
Author Organization [facility] Address [address] [place] [address] Care Team Providers Care Treatment Supervisor Name Role Phone Jean Joy MD Unavailable [phone] Yvan Booth MD Primary Care Provider [phone] Reason for Visit * Reason Onset Date Comments MEDICATION REFILL 02/23/2012 Encounter Details Date Type Department Care Team (Late st Contact Info) Description 02/23/2012 Refill [facility] - QUALITY WORKER [address] [facility] [address] [place] [address] Jean Joy MD [address] [place] [address] MEDICATION REFILL Social History Tobacco [...] on filedocumented in this encounter Care Teams Treatment Supervisor Relationship Specialty Start Date End Date Jean Joy MD PCP - OBGYN 12/27/07 Yvan Booth MD [address] [place] [address] PCP - General 11/04/09 01/04/23 documented as of this encounter
--- OUTSIDE RECORDS SUMMARY | 2024-03-19 20:48 | XMS_ITS | Encounter Summary ---
Author Organization [facility] Address [address] [place] [address] Care Team Providers Care Front Services Agent Name Role Phone Jean Thao MD Unavailable [phone] Yvan Booth MD Primary Care Provider [phone] Reason for Visit * Reason Comments Scheduled C Section * Auth/Cert Specialty Diagnoses / Procedures Referred By Contac t Referred To Contact Procedures SECTION REPEAT Referral ID Status Reason Start Date Expiration Date Visits Re quested Visits Authorized [id number] 1 1 Encounter Details Date Type Department Care Team (Late st Contact Info) Description 03/01/2016 9:30 AM FLIGHT SURVEYOR - 03/01/2016 10:54 AM FLIGHT SURVEYOR Surgery [facility] [address] [address] Jean Thao MD [address] [place] [id number] SECTION REPEAT Surgery Details Date/Time Status Location OR Service Patient Class Case Class Case Type Trauma Case? 03/01/2016 9:30 AM Posted [facility] 1 Obstetrics Pressure Controller Admit Surgical Elective > 5 days Panel 1 Procedure LRB Anes Op Region Wound Class Comments SECTION REPEAT Spinal Abdomen Clean Contaminated Surgeon Surgeon Role Service Panel Nicanor Avitia Jr., MD Assisting Obstetrics 1 Jean Thao MD Primary Obstetrics 1 documented in this encounter Social History Tobacco Use Types Packs/Day Years Used Date Smoking Tobacco: Former Cigarettes Smokeless Tobacco: Never Tobacco Cessation:Counseling Given: No [...] Sign Reading Time Taken Comments Blood Pressure 157/99 03/04/2016 9:10 AM FLIGHT SURVEYOR Pulse 100 03/04/2016 9:10 AM FLIGHT SURVEYOR Temperature 37 ??C (98.6 ??F) 03/04/2016 9:10 AM FLIGHT SURVEYOR Respiratory Rate 16 03/04/2016 9:10 AM FLIGHT SURVEYOR Oxygen Saturation 97% 03/04/2016 9:10 AM FLIGHT SURVEYOR Inhaled Oxygen Concentration - - Weight 94.8 kg (209 lb) 03/01/2016 7:35 AM FLIGHT SURVEYOR Height 162.6 cm (5' 4 ) 03/01/2016 7:35 AM FLIGHT SURVEYOR Body Mass Index 35.87 03/01/2016 7:35 AM FLIGHT SURVEYOR documented in this encounter Functional Status Functional [...] 03/01/2016 documented as of this encounter Discharge Summaries * Cassidy Camacho MD - 03/04/2016 10:08 AM CST OB Discharge Note--c/s Subjective: Patient is feeling well, pain adequately controlled, and ambulating. Objective: Vitals: 03/03/16 0720 03/03/16 1445 03/03/16 2329 03/04/16 0910 BP: 143/74 143/88 147/83 157/99 Pulse: 86 100 Resp: 16 18 16 Temp: 98 ??F 98 ??F 98 ??F 98.6 ??F SpO2: 97% Weight: No intake or output data in the 24 hours ending 03/04/16 1010 Exam: Gen: alert, cooperative, no distress CV: RRR LUNG: CTAB ABD: + BS, soft, appropriate tenderness Lochia: appropriate Inc: C/D/I, healing well, no significant erythema EXT: no calf tenderness Results: My review of labs, imaging, notes and other tests shows no new significant findings. Recent Labs Component Name 03/02/16 0621 03/01/16 0817 02/18/16 1209 08/13/15 0922 WBC - 9.2 10.4 9.3 HGB 10.3* 12.9 12.6 13.5 HCT 30.9* 37.0 38.6 40.4 PLTCOUNT - 243 314 370 Reasons for Admission: Admit Date: 03/01/2016 Discharge Date: 03/04/2016 Discharge Diagnosis: Term delivery. Delivery Type: section Antepartum complications: Gestational hypertension Incision: pfannenstiel, low transverse uterine Feeding method: human milk Rhogam: not indicated Rubella: not indicated Assessment: 2, Para 2, None filed, Estimated Date of Delivery: 03/17/16 Gestational Age Post-op day 1. Complications: none Condition at discharge: good Discharge Instructions: Discharge Procedure Orders Why you were hospitalized Order Specific Question Answer Comments Your discharge diagnosis is Recent childbirth [[id number]] No special diet needed Resume your normal home diet as tolerated. Eat well-balanced meals that include foods from all of the food groups. Nothing per vagina For [address] In pain or on narcotics No heavy lifting Do not lift anything over 15 pounds if section. No restrictions if vaginal delivery. Contact your provider Call if you have questions or concerns, or for any of the following issues: -- for a temperature higher than 101 F -- for pain that gets worse or does not get better after taking your pain medication(s) as directed -- if you see a lot of bleeding from your incision -- if your incision looks infected (red, swollen, warm to the touch, or non- clear, foul-smelling drainage) -- if you have severe cramping or increased vaginal bleeding -- Blood pressures consistently >160/100s Shower and bathing instructions May shower now; no tub baths if x 1 wk Follow up with provider Order Specific Question Answer Comments Follow Up Instructions: in 4 wks; call office in 1 wk with BP report Discharge Medication List START taking these medications Instructions Authorizing Provider docusate sodium 100 MG capsule Commonly known as: COLACE Take 1 Cap by mouth 2 times daily as needed for Constipation Cassidy Camacho ibuprofen 600 MG tablet Commonly known as: MOTRIN Take 1 Tab by mouth every 6 hours Cassidy Camacho oxyCODONE-acetaminophen 5-325 MG tablet Commonly known as: PERCOCET Take 1 Tab by mouth every 4 hours as needed Cassidy Camacho CONTINUE taking these medications Instructions Authorizing Provider 1 PO Take 1 Tab by mouth ZANTAC 150 MG tablet Generic drug: raNITIdine Take 150 mg by mouth 2 times daily ZYRTEC PO Take 10 mg by mouth once daily Instructions: Call if increased pain, bleeding, or temperature greater than 101. Call if wound drainage, bleeding or increased redness. Discharge to home. Cassidy Camacho MD HT SURVEYOR documented in this encounter Discharge Instructions * Discharge Instructions* Diamond Basilio RN - 03/04/2016 10:47 AM FLIGHT SURVEYOR DELIVERED MOTHER DISCHARGE INSTRUCTIONS Refer to the Booklet given during your stay for more information. Please contact your hot end operator for the followin. Any burning or itching when urinating. . 2. Any significant increase or change in color or odor of vaginal discharge and/or any pus drainingfrom your abdominal incision (). 3. Any significant increase in pain, tenderness, or redness in your abdominal incision (). 4. Any increased vaginal bleeding that may contain clots. 5. Temperature greater than 101 degrees or as instructed by your care provider. 6. Any pus or blood draining from nipples. Remember to collect all your belongings kept at the bedside, for example: your cell phone and cell phone bellows charger assembler. PLEASE REMEMBER: 1. Always place your on his/her back to sleep. 2. Always use a car safety seat when transporting your child. HT SURVEYOR documented in this encounter Medications at Time of Discharge Medication Sig Dispensed Refills Start Date End Date Cetirizine HCl (ZYRTEC PO) Take 10 mg by mouth once daily docusate sodium (COLACE) 100 MG capsule Take 1 Cap by mouth 2 times daily as needed for Constipation 45 Cap 03/04/2016 09/04/2016 ibuprofen (MOTRIN) 600 MG tablet Take 1 Tab by mouth every 6 hours 40 Tab 03/04/2016 09/04/2016 oxyCODONE-acetaminophe n (PERCOCET) 5-325 MG tablet Take 1 Tab by mouth every 4 hours as needed 40 Tab 03/04/2016 09/04/2016 MV-Min-Fe Fum-FA-DHA ( 1 PO) Take 1 Tab by mouth 09/05/19 17 raNITIdine (ZANTAC) 150 MG tablet Take 150 mg by mouth as needed 12/04/2018 documented as of this encounter Progress Notes * Yolie Zhao, TIO/MELVA - 03/03/2016 5:23 PM CST CLINICAL NUTRITION Comments: Pt rescreened 2/2 LOS. No acute nutrition issues identified at this time. Pt reports no c/o, statesgood appetite, requests nutrition information for breast feeding status. Med/Surg History and Clinical Diagnoses: pt is POD#2 s/p C/S Height: 5' 4 (162.6 cm) Body mass index is 35.87 kg/(m^2). Wt Readings from Last 3 Encounters: 03/01/16 209 lb (94.8 kg) 02/29/16 209 lb (94.8 kg) 02/25/16 212 lb (96.2 kg) Current diet order: Regular Food Allergies: No known food allergies P.O.intake for past 48 hours: No Data Recorded. Appetite good per pt. Weights noted above Laboratory values reviewed. Medications noted. Skin/Wound: incision. Last BM unknown Education needed: Education Provided: Yes Expected level of compliance: Good Discussed with pt nutrition while : ?? Drink adequate fluids throughout the day to avoid becoming thirsty ?? drink one glass of fluid each time the baby nurses/mother pumps ?? avoid alcohol and caffeinated beverages ?? continue taking pre-emilie vitamins ?? eat nutritious snacks between meals to add the extra calories needed for breast feeding Provided pt with handout with contact information for any future questions or concerns. Nutrition recommendation: agree with current nutrition order; Current diet order: Regular Continue PNV with breast feeding status. TARI Moseley 03/03/2016 HT SURVEYOR * Azalia Jenkins MD - 03/03/2016 10:58 AM CST OB Progress Note--c/s 03/03/2016 10:58 AM Consuelo R Mehnaz Subjective: Patient is feeling well, pain adequately controlled, and ambulating. GI function: flatus passed, taking full diet without nausea or vomiting Bladder function: voided without difficulty Objective: Temp (36hrs) Max:98.4 ??F Vitals: 03/02/16 1120 03/02/16 1410 03/03/16 0025 03/03/16 0720 BP: 134/71 136/56 133/64 143/74 Pulse: 94 96 83 Resp: 18 16 Temp: 98.1 ??F 98.1 ??F 97.8 ??F 98 ??F SpO2: 98% Weight: No intake or output data in the 24 hours ending 03/03/16 1058 Exam: Gen: alert, cooperative, no distress CV: RRR LUNG: CTAB ABD: + BS, soft, appropriate tenderness Lochia: appropriate Inc: C/D/I, healing well, no significant erythema EXT: no calf tenderness Assessment: Post-op day 2. Complications: none Plan: Continue routine care Azalia Jenkins MD HT SURVEYOR * Jean Thao MD - 03/02/2016 7:25 AM CST Progress Note Subjective: day #1 from a . Consuelo Stock Mehnaz is without complaint. Flatus has been passed. She is tolerating a regular diet. Baby is doing well without problems Objective: Temp (36hrs) Max:98.4 ??F Vitals: 03/01/16 1446 03/01/16 1950 03/02/16 0040 03/02/16 0450 BP: 128/77 126/68 117/76 130/72 Pulse: 83 Resp: Temp: 97.3 ??F 97.9 ??F 98.1 ??F 98.4 ??F SpO2: 98% 97% 97% 96% Weight: General: Alert, cooperative, comfortable, and orientated x3 Lochia: Lochia is normal Abdomen: Abdomen soft. Uterus nontender and involuting well Incision is dry, intact, and without erythema. Extremities: There is no calf tenderness, and there is no significant edema. Lab: Recent Labs Component Name 03/02/16 0621 03/01/16 0817 02/18/16 1209 08/13/15 0922 WBC - 9.2 10.4 9.3 HGB 10.3* 12.9 12.6 13.5 HCT 30.9* 37.0 38.6 40.4 PLTCOUNT - 243 314 370 Assessment: Normal history and exam. Expected course. Plan: Routine care HT SURVEYOR * Bess Gillis RN - 03/01/2016 11:47 PM CST Problem: Pre-operative Phase Goal: Maternal BP, heart rate & temperature within expected range for patient Outcome: Goal Met Date Met: 03/01/16 Goal: Fetus demonstrates a normal heart rate by auscultation or demonstrates a reactive non-stress test if electronic monitoring used A. FHR baseline 110-160 beats/min B. FHR accelerations C. Presence of FHR variability Outcome: Goal Met Date Met: 03/01/16 Goal: Patient verbalizes understanding of procedure Outcome: Goal Met Date Met: 03/01/16 Goal: Pre-op checklist completed Outcome: Goal Met Date Met: 03/01/16 Problem: Intraoperative Phase Goal: Maternal & vital signs will remain stable, and safe environment will be maintained throughout procedure Outcome: Goal Met Date Met: 03/01/16 HT SURVEYOR * Jean Thao MD - 03/01/2016 10:21 AM CST Post op Note Pre op Dx: 37.5 weeks, GHTN, previous C/S Post op Dx: same Op : C/S, Anes:spinal EBL: 700 cc Findings: viable female, good 's Pt stable in OBRR HT SURVEYOR * Nicanor Avitia Jr., MD - 03/01/2016 10:13 AM CST Consuelo Darby Repeat I was requested to assist with the patient's by the attending physician. Nicanor Avitia Jr., MD HT SURVEYOR documented in this encounter H&P Notes * Jean Thao MD - 02/29/2016 2:10 PM CST Private OB History and Physical - C/S Consuelo Darby [id number] 02/29/2016 Subjective: Consuelo Darby is a 35 y.o. G Estimated Date of Delivery: 03/17/16 female at 37w4d weeks gestation. Chief Complaint: She comes to L&D for a repeat . History of Present Illness: Her current obstetrical history is remarkable for GHTN and a Hx of severe PIH. is Single. Movement is normal. The following are indications for : GHTN at 37.5 weeks with a Hx of severe PIH maturity criteria include: ultrasound documentation of crown-rump length at 6-11 weeks supporting gestational age of 39 weeks or more (ultrasound report) Objective: There were no vitals taken for this visit. Past, Family, and Social History ALLERGIES: Allergies Allergen Reactions ??? 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 Current Outpatient Prescriptions on File Prior to Encounter Medication Sig Dispense Refill ??? Cetirizine HCl (ZYRTEC PO) Take 10 mg by mouth once daily PAST MEDICAL HISTORY: Past Medical History Diagnosis Date ??? Abdominal pain, right upper quadrant ??? GERD (gastroesophageal reflux disease) SURGERIES: Past Surgical History Procedure Laterality Date ??? section ??? Colonoscopy ??? Cholecystectomy, laparoscopic 02/22/2012 N/A; LAPAROSCOPIC CHOLECYSTECTOMY SINGLE INCISION ??? Cholecystectomy FAMILY HISTORY: Family History Problem Relation Age of Onset ??? Cancer Maternal Grandfather Lung ??? Diabetes Maternal Grandfather ??? Diabetes Maternal Grandmother ??? Hypertension Mother ??? Thyroid Disease Mother SOCIAL HISTORY: History Social History ??? Marital status: Spouse name: N/A ??? Number of children: N/A ??? 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 Smoking status: Former Smoker Packs/day: 0.50 Types: Cigarettes ??? Smokeless tobacco: Never Used ??? Alcohol use: 0.0 - 1.0 oz/week 0 - 2 Cans of beer per week Comment: Occasional ??? Drug use: No ??? Sexual activity: Yes Partners: Male control/ protection: Pill Other Topics Concern ??? Special Diet No Social History Narrative Review of Systems: Review of systems is negative . Physical Exam: General appearance: alert, cooperative, no distress Lungs: breath sounds normal and symmetric; no rales or wheezes, respiratory effort normal Heart: regular rate and rhythm, S1, S2 normal, no murmur, click, rub or gallop Abdomen: gravid, symmetric, no organomegaly, soft, non-tender Extremities: normal, non-tender bilaterally, mild-mod edema non-stress test (taylor): baseline rate 145, reactive Uterine size: S=D Membranes: intact Lab Review: GBS: negative Ultrasound Results: Normal Assessment: IUP in a G Estimated Date of Delivery: 03/17/16 female at 37w4d weeks gestation. Obstetrical history GHTN. Plan: Admitted for repeat section. The risks and benefits of delivery were explained to the patient. Patient understands and will proceed with delivery. Jean Thao MD HT SURVEYOR documented in this encounter Nursing Notes * Uzma Zhang RN - 03/03/2016 11:38 AM CST This note was copied from a baby's chart. follow-up: educational packet completed. Mom states she thinks her milk is coming in. Reviewed prevention and treatment of engorgement. Encouraged mom to feed q 2-21/2 hours today, due to weight loss. Encouraged mom to call for latch assessment at next feeding. Mom did not call. HT SURVEYOR * Uzma Zhang RN - 03/01/2016 1:48 PM CST This note was copied from a baby's chart. Consult:General information discussed and questions answered. Latches easily with strong nutritive sucks and occasional swallows observed. Pointed out the indications of correct position, latch and suck to mom as nursed. Encouraged mom to call for further assistance as needed otherwise to follow up in am. HT SURVEYOR documented in this encounter OR Notes * Operative - Jean Thao MD - 03/01/2016 6:15 PM CST [facility] OPERATIVE REPORT PATIENT NAME: CONSUELO DARBY MR#: [id number] ROOM #: CSN: [id number] : 1980 ADMIT: 03/01/2016 SURGEON: Jean Thao M.D. SURGERY DATE: 03/01/2016 SURGEON: Jean Thao M.D. ANCHOR OPERATOR: CHEMICAL PROCESSING EQUIPMENT REPAIRER: PREOPERATIVE DIAGNOSES: 37 weeks 5 days gestation, gestational hypertension, and previous section. POSTOPERATIVE DIAGNOSES: 37 weeks 5 days gestation, gestational hypertension, and previous section. OPERATION NAME: Repeat C section. ANESTHETIC: Spinal. DESCRIPTION OF THE PROCEDURE: The patient was taken to the operating room and placed on operating table. Spinal anesthetic was given by the Department of Anesthesia. Puentes catheter was introduced into the bladder. The abdomen was sterilely prepped and draped in the usual fashion. After assurance of adequate anesthesia, a low-transverse incision was made through her previous Pfannenstiel incision, carried down sharply through the subcutaneous tissue to the fascia. The fascia was transversely incised as well and bluntly and sharply dissected free of the rectus muscles. The rectus muscles were in the midline and the peritoneum was sharply entered. A bladder flap was created on the lower uterine segment and a low-transverse uterine incision was made. A viable female infant was delivered. Baby was given to the pediatrics personnel in attendance and got good Apgars. The uterus was closed in 2 layers using 0 Monocryl suture in a running, interlocking fashion. There was some oozing in the mid-portion of the incision that was controlled using a nxoksl-fy-[id number] suture of the 0 Monocryl. The pelvis was then copiously irrigated and carefully examined for hemostasis, which was found to be very good. At this point, then the rectus muscles and peritoneum were reapproximated in the midline with 0 Monocryl. The fascia was then closed in running fashion with 0 Vicryl. The subcutaneous tissue was irrigated and made hemostatic using the electrocautery and the skin was closed using 4-0 Monocryl. All sponge and needle counts were correct. Estimated blood loss was 700 mL. The patient tolerated the procedure well and was taken to recovery in good condition. Jean Thao M.D. CLARISSA/ISABELLA /[id number] OPERATIVE REPORT - HT SURVEYOR documented in this encounter Miscellaneous Notes * Delivery Summary - Consuelo Bay RN - 03/01/2016 10:45 AM CST DELIVERY SUMMARY Mother's Post Delivery /Para: OB History Para Term AB TAB SAB Ectopic Multiple Living 2 2 1 1 0 1 Estimated Date of Delivery: 03/17/16 Temp (48hrs) Max:97.9 ??F Follow- Up Infant Care Provider:: Dr Martínez Estimated Blood Loss 03/01/16 0939 - 03/01/16 1046 Mom's I/O Activity Blood Loss Measured Hospital Encounter 765 ml Total 765 Mother's Information Patient Information Patient Name Sex Consuelo Geller ([id number]) Female 1980 OB History Para Term AB SAB TAB Ectopic Multiple Living 2 2 1 1 0 1 # Outcome Date GA Labor/2nd Weight Sex Delivery Anes PTL Lv Name A1 A5 Location Delivering Clinician 2 Term 03/01/16 37w5d 2778 g (6 lb 2 oz) F , S Spinal Y SATINDER DARBY 8 9 [facility] Jean Alicea MD 1 09/23/07 36w0d F P DJB Comments: Severe PIH Transcribed Labs 03/01/16 0746 RH (Manually Reproduced) Positive Blood Type (Manually Reproduced) B Syphilis Serology (Manually Reproduced) Negative HIV (Manually Reproduced) Negative Hepatitis B Surface Antigen (Manually Reproduced) Negative Rubella Status ( Manually Reproduced) Immune Beta Strep Culture (Manually Reproduced) Negative Satinder Darby [[id number]] Patient Information Patient Name Sex Satinder Geller ([id number]) Female 03/01/2016 Procedures Procedure Comments: none List Suspected Problems: none Group Beta Strep Status/Number of Antibiotic Doses GBS Status: Negative Antibiotic: Cefazolin Number of Antibiotic Doses: 1 Membranes/Fluid Membrane Status: Artificial Rupture Date: 03/01/16 Rupture Time: 9:45 AM Fluid Description: Clear Amniotic Fluid Volume: Moderate Anesthesia/Analgesia Anesthesia/Analgesia: Spinal Intrapartum Events Induction Method: None Augmentation Method: None Conditions: None Labor and Delivery Complications: None Section Decision Indications: Repeat Categorization: Repeat Priority: Scheduled Counts by Panel Panel 1 Type Which? Correct? X-Ray? MD Notif? Counted By Verified By Instruments/Greenfield/Sharps/Sponges Initial / Baseline Yes No Yes Clari Hernandes Buchanan Ashley, AMBROSE 0983 Greenfield/Sharps/Sponges Next Yes No Yes Clari Hernandes Jennifer M RN 0927 Instruments/Greenfield/Sharps/Sponges Closure of a Cavity within a Cavity Yes No Yes Clari Hernandes Jennifer M RN 1005 Greenfield/Sharps/Sponges Skin Closure / End of Procedure Yes No Yes Clari Hernandes Jennifer M, RN 1018 Delivery Type/ Presentation Delivery Type: , Scheduled Presentation: Vertex Placenta Date and time: 03/01/2016 9:46 AM Appearance/Removal/Tests: Intact Episiotomy/Laceration/Repair with Sponge and Sharp Counts Episiotomy: None Lacerations: None Repair Suture: None Delivery Outcome Steroids Given between 24 and 32 weeks? Core Measure PC-3: None Baby Vital Statistics Date: 03/01/16 Time: 944 Weight: 2778 g Length: 18 Head Circum.: 12 1 Minute 1 Minute: Skin Color: 0 Grimace: 2 Breathin Heart Rate: 2 Muscle Tone: 2 Total: 8 5 Minute 5 Minute: Skin Color: 1 Grimace: 2 Breathin Heart Rate: 2 Muscle Tone: 2 Total: 9 Baldwin Stabilization Equipment Checked by: A [place] RN Vigorous at ? (Heart rate greater than 100, normal respirations and normal muscle tone): Yes Suction Method: Bulb, Suction Trap Secretions (Amount in Comment): Clear (Comment: 8cc) Requires more than warming, stimulation, and suction?: No Intubation Procedure: Thermoregulation Support: Cap, Overhead Warmer, Warm Blankets Description of Baby: Viable female. Cord/Gases No data filed Baldwin Feeding/Elimination Mother's Feeding Choice for this Stay: Human Milk Voided in Delivery Room?: No Stooled in Delivery Room?: Yes Delivering Clinician Delivering Clinician: JEAN THAO History Information Length: 18 (45.7 cm) Weight: 2778 g (6 lb 2 oz) Head Circ: 12 (30.5 cm) Gestational Age: 37 5/7 weeks Delivery Method: , Scheduled APGARs 1 Minute: 8 5 Minute: 9 HT SURVEYOR documented in this encounter Plan of Treatment Not on file documented as of this encounter Procedures Procedure Name Priority Date/Time Associated Diagnosis Comments HGB HCT PANEL AM Draw 03/02/2016 6:21 AM FLIGHT SURVEYOR BLOOD TYPE VERIFICATION Routine 03/01/2016 9:25 AM FLIGHT SURVEYOR SECTION (REPEAT) 03/01/2016 9:15 AM FLIGHT SURVEYOR TYPE + SCREEN PANEL Routine 03/01/2016 8 :17 AM FLIGHT SURVEYOR CBC W AUTO DIFFERENTIAL STAT 03/01/2016 8:17 AM FLIGHT SURVEYOR PIH ( induced hypertension), third trimester (HCC) COMPREHENSIVE METABOLIC PANEL AM Draw 03/01/2016 8:17 AM FLIGHT SURVEYOR PIH ( induced hypertension), third trimester (HCC) documented in this encounter Results * (ABNORMAL) HGB HCT PANEL (03/02/2016 6:21 AM FLIGHT SURVEYOR) Hemoglobin 10.3(L) 12.0 - 15.6 gm/dL 03/02/2016 6:30 AM FLIGHT SURVEYOR [facility] Hematocrit 30.9(L) 35.9 - 45.5 % 03/02/2016 6:30 AM FLIGHT SURVEYOR [facility] Blood BLOOD SPECIMEN / Unknown Collection / Unknown 03/02/2016 6:21 AM FLIGHT SURVEYOR 03/02/2016 6:25 AM FLIGHT SURVEYOR Jean Thao MD LAB - HEMATOLOGY ORD ERABLES [facility] [address] [address] * BLOOD TYPE VERIFICATION (03/01/2016 9:25 AM FLIGHT SURVEYOR) ABO B 03/01/2016 9:57 AM FLIGHT SURVEYOR [facility] Rh Type Positive 03/01/2016 9:57 AM FLIGHT SURVEYOR [facility] Blood Bank BLOOD SPECIMEN / Unknown Venipuncture / Unknown 03/01/2016 9:25 AM FLIGHT SURVEYOR 03/01/2016 9:32 AM FLIGHT SURVEYOR Jean Thao MD LAB - BLOOD BANK ORD ERABLES [facility] [address] [id number] [phone] * (ABNORMAL) COMPREHENSIVE METABOLIC PANEL (03/01/2016 8:17 AM FLIGHT SURVEYOR) [facility] Glucose 83 74 - 106 mg/dL 03/01/2016 8:49 AM [facility] Sodium 141 136 - 145 mmol/L 03/01/2016 8:49 AM [facility] Potassium 3.6 3.5 - 5.1 mmol/L 03/01/2016 8:49 AM [facility] Chloride 110(H) 98 - 107 mmol/L 03/01/2016 8:49 AM [facility] CO2 21(L) 22 - 31 mmol/L 03/01/2016 8:49 AM [facility] Calcium 8.1(L) 8.5 - 10.1 mg/dL 03/01/2016 8:49 AM [facility] Anion Gap 10 8 - 16 mmol/L 03/01/2016 8:49 AM [facility] BUN 9 7 - 21 mg/dL 03/01/2016 8:49 AM [facility] Creatinine 0.60 0.50 - 1.30 mg/dL 03/01/2016 8:49 AM [facility] Alkaline Phosphatase 111 38 - 126 U/L 03/01/2016 8:49 AM [facility] ALT 21 13 - 61 U/L 03/01/2016 8:49 AM [facility] AST 25 5 - 40 U/L 03/01/2016 8:49 AM [facility] Protein Total 6.4 6.4 - 8.2 gm/dL 03/01/2016 8:49 AM [facility] Albumin 2.5(L) 3.4 - 5.0 gm/dL 03/01/2016 8:49 AM [facility] Bilirubin Total 0.2 0.2 - 1.0 mg/dL 03/01/2016 8:49 AM [facility] eGFR by MDRD >60 >60 mL/min/1.7 3m2 03/01/2016 8:49 AM [facility] eGFR by MDRD >60 >60 mL/min/1.7 3m2 03/01/2016 8:49 AM [facility] Blood BLOOD SPECIMEN / Unknown Venipuncture / Unknown 03/01/2016 8:17 AM FLIGHT SURVEYOR 03/01/2016 8:30 AM [facility] Jean Thao MD LAB - CHEMISTRY ORDE RABLES [facility] Organization Address City/State/ZIP Co de Phone Number [facility] [address] [address] * (ABNORMAL) CBC W AUTO DIFFERENTIAL (03/01/2016 8:17 AM [facility]) WBC 9.2 4.4 - 10.7 x10E9/L 03/01/2016 8:33 AM [facility] WBC Corrected x10E9/L 03/01/2016 8:33 AM [facility] RBC 3.98 3.80 - 5.20 x10E12/L 03/01/2016 8:33 AM [facility] Hemoglobin 12.9 12.0 - 15.6 gm/dL 03/01/2016 8:33 AM [facility] Hematocrit 37.0 35.9 - 45.5 % 03/01/2016 8:33 AM [facility] MCV 93.0 80.7 - 98.3 fl 03/01/2016 8:33 AM [facility] MCH 32.4 26.7 - 34.0 pg 03/01/2016 8:33 AM [facility] MCHC 34.9 30.8 - 35.9 gm/dL 03/01/2016 8:33 AM [facility] Platelet Count 243 153 - 416 x10E9/L 03/01/2016 8:33 AM [facility] RDW-CV 14.6 12.1 - 14.9 % 03/01/2016 8:33 AM [facility] MPV 11.9 9.4 - 12.9 fl 03/01/2016 8:33 AM [facility] Neutrophils % 71.9 44.0 - 73.0 % 03/01/2016 8:33 AM [facility] Lymphocytes % 19.2(L) 20.0 - 43.0 % 03/01/2016 8:33 AM [facility] Monocytes % 8.0 5.0 - 13.0 % 03/01/2016 8:33 AM [facility] Eosinophils % 0.2 0.0 - 6.0 % 03/01/2016 8:33 AM [facility] Basophils % 0.2 0.0 - 2.0 % 03/01/2016 8:33 AM [facility] Immature Granulocytes 0.5 0 - 1 % 03/01/2016 8:33 AM [facility] Neutrophil Absolute 6.58 2.01 - 7.14 x10E9/L 03/01/2016 8:33 AM [facility] Lymphocytes Absolute 1.76 1.07 - 3.94 x10E9/L 03/01/2016 8:33 AM [facility] Monocytes Absolute 0.73 0.26 - 1.07 x10E9/L 03/01/2016 8:33 AM [facility] Eosinophils Absolute 0.02 0 - 0.47 x10E9/L 03/01/2016 8:33 AM [facility] Basophils Absolute 0.02 0 - 0.08 x10E9/L 03/01/2016 8:33 AM [facility] Immature Granulocytes Absolute 0.05 0.00 - 0.06 x10E9/L 03/01/2016 8:33 AM [facility] nRBC Auto 0 /100 WBC 03/01/2016 8:33 AM [facility] Blood BLOOD SPECIMEN / Unknown Venipuncture / Unknown 03/01/2016 8:17 AM [facility]OR 03/01/2016 8:30 AM [facility]YOR Jean Thao MD LAB - HEMATOLOGY ORD ERABLES Performing Organization Address City/[facility]/ZIP Co de Phone Number [facility] [address] [place] [address] * TYPE + SCREEN PANEL (03/01/2016 8:17 AM FLIGHT SURVEYOR) ABO B 03/01/2016 9:10 AM [facility] Rh Type Positive 03/01/2016 9:10 AM [facility] Antibody Screen Negative 03/01/2016 9:10 AM [facility] Comment:History check perfor med. Retype required. Blood Bank BLOOD SPECIMEN / Unknown Venipuncture / Unknown 03/01/2016 8:17 AM FLIGHT SURVEYOR 03/01/2016 8:30 AM FL[facility] SURVEYOR Jean Thao MD LAB - BLOOD BANK ORD ERABLES [facility] [address] [phone] documented in this encounter Visit Diagnoses Not on filedocumented in this encounter Administered Medications Inactive Administered Medications - up to 3 most recent administrations Medication Order MAR Action Action Date Dose Rate Site ibuprofen (MOTRIN) tablet 600 mg 600 mg, Oral, EVERY 6 HOURS, First dose (after last modification) on [place] 03/02/16 at 1200, Until Discontinued, Maximum allowable amount = 3200 mg / 24 hours., $ Given 03/04/2016 5:29 AM FLIGHT SURVEYOR 600 mg $ Given 03/03/2016 11:39 PM FLIGHT SURVEYOR 600 mg $ Given 03/03/2016 5:59 PM FLIGHT SURVEYOR 600 mg lanolin (LANOLIN) ointment Topical, PRN, Sore or cracked nipples., Starting on Sun03/01/16 at 1023, Until 03/04/16 at 1239, Apply purified Lanolin to sore or cracked nipples, if needed. May keep at bedside., oxyCODONE-acetaminophen (PERCOCET) 10-325 MG tablet 1 Tab 1 tablet, Oral, EVERY 4 HOURS PRN, Severe Pain, Starting on Sun03/01/16 at 1200, Until 03/04/16 at 1239, $ Given 03/02/2016 8:31 PM FLIGHT SURVEYOR 1 tab let $ Given 03/02/2016 3:26 PM FLIGHT SURVEYOR 1 tablet $ Given 03/02/2016 9:46 AM FLIGHT SURVEYOR 1 tablet oxyCODONE-acetaminophen (PERCOCET) 5-325 MG tablet 1 Tab 1 tablet, Oral, EVERY 4 HOURS PRN, Moderate Pain, Starting on Sun03/01/16 at 1200, Until 03/04/16 at 1239, $ Given 03/03/2016 11:29 PM FLIGHT SURVEYOR 1 tablet $ Given 03/03/2016 12:13 PM FLIGHT SURVEYOR 1 tablet documented in this encounter Active and Recently Administered Medications Times are shown in FLIGHT SURVEYOR. Scheduled Medication Order 03/02/2016 03/03/2016 03/04/2016 0.9% NaCl injection 3 mL (CANCELED) 3 mL, Intracatheter, EVERY 8 HOURS, First dose on Sun03/01/16 at 1400, Until Discontinued, 0705 ($ Given - Provider: Serene Bagley RN) ibuprofen (MOTRIN) tablet 600 mg 600 mg, Oral, EVERY 6 HOURS, First dose (after last modification) on [place] 03/02/16 at 1200, Until Discontinued, Maximum allowable amount = 3200 mg / 24 hours., 1214 ($ Given - Provider: Landy Sun RN)1823 ($ Given - Provider: Landy Sun RN) 0029 ($ Given - Provider: Mer Toribio, RN)0633 ($ Given - Provider: Mer Toribio, RN)1213 ($ Given - Provider: Landy Sun RN)1759 ($ Given - Provider: Landy Sun, AMBROSE)2339 ($ Given - Provider: Abby Francois, RN) 0529 ($ Given - Provider: Abby Francois, RN) ketorolac (TORADOL) injection 30 mg (COMPLETED) 30 mg, Intravenous, EVERY 6 HOURS, 4 doses, First dose on Sun03/01/16 at 1200, Last dose on [place] 03/02/16 at 0600, For pain and discomfort. 0039 ($ Given - Provider: Bess Gillis RN)0705 ($ Given - Provider: Serene Bagley, AMBROSE) PRN Medication Order 03/02/2016 03/03/2016 03/04/2016 lanolin (LANOLIN) ointment Topical, PRN, Sore or cracked nipples., Starting on Sun03/01/16 at 1023, Until 03/04/16 at 1239, Apply purified Lanolin to sore or cracked nipples, if needed. May keep at bedside., oxyCODONE-acetaminophen (PERCOCET) 10-325 MG tablet 1 Tab 1 tablet, Oral, EVERY 4 HOURS PRN, Severe Pain, Starting on Sun03/01/16 at 1200, Until 03/04/16 at 1239, 0946 ($ Given - Provider: Landy Sun RN)1526 ($ Given - Provider: Landy Sun RN)2031 ($ Given - Provider: Mer Toribio, AMBROSE) oxyCODONE-acetaminophen (PERCOCET) 5-325 MG tablet 1 Tab 1 tablet, Oral, EVERY 4 HOURS PRN, Moderate Pain, Starting on Sun03/01/16 at 1200, Until 03/04/16 at 1239, 1213 ($ Given - Provider: Landy Sun, AMBROSE)2329 ($ Given - Provider: Abby Francois, AMBROSE) documented in this encounter Care Teams Front Services Agent Relationship Specialty Start Date End Date Jean Thao MD PCP - OBGYN 12/27/07 Yvan Booth MD [address] [place] [id number] PCP - General 11/04/09 01/04/23 documented as of this encounter
--- OUTSIDE RECORDS SUMMARY | 2024-03-19 20:48 | XMS_ITS | Encounter Summary ---
Author Organization [facility] Address [address] [place] [address] Care Team Providers Care Elder Counselor Name Role Phone Jean Joy MD Unavailable Yvan Booth MD Primary Care Provider [phone] Reason for Visit * Reason Onset Date Comments MEDICATION REFILL 03/16/2015 Encounter Details Date Type Department Care Team (Late st Contact Info) Description 03/16/[address] [facility] - [facility] [address] [place] [id number] Jean Joy MD [address] [facility] [facility] [address] [place] [address] MEDICATION REFILL Social History Tobacco [...] on filedocumented in this encounter Care Teams Elder Counselor Relationship Specialty Start Date End Date Jean Joy MD PCP - OBGYN 12/27/07 Yvan Booth MD [address] [place] [address] PCP - General 11/04/09 01/04/23 documented as of this encounter
--- OUTSIDE RECORDS SUMMARY | 2024-03-19 20:48 | XMS_ITS | Encounter Summary ---
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 [place] [address] Routine gynecological examination (Primary Dx) [...] Sign Reading Time Taken Comments Blood Pressure 110/74 02/20/2014 10:[address] Pulse - - Temperature - - Respiratory Rate - - Oxygen Saturation - - Inhaled Oxygen Concentration - - Weight 74.8 kg (165 lb) 02/20/2014 10:[address] Height 162.6 cm (5' 4 ) 02/20/2014 10:[address] Body Mass Index 28.32 02/20/2014 10:[address] documented in this encounter Progress Notes * Jean Joy MD - 02/20/2014 11:06 AM CST Well Woman Yearly Exam (Premenopausal) HISTORY: Consuelo Darby is a 33 y.o. white female, No LMP recorded. Patient is not currently having periods (Reason: Continuous Control)., here for a Well Woman exam. Patient does not have other gynecological issues or concerns. Last Pap: normal Last mammogram:patient has never had a mammogram Menses: Continuous OCP's Contraception: OCP (estrogen/progesterone) History Sexual Activity: History Sexual Activity ??? Sexual Activity: ??? Partners: Male ??? Control/ Protection: Pill Other pertinent SENIOR STATISTICIAN history: none Other pertinent history: Medical, Surgical, Family, and Social History Reviewed. Allergies reviewed. Review of Systems Pertinent items are noted in HPI EXAMINATION BP 110/74 Wt 165 lb BMI 28.31 kg/m2 General Appearance: alert, cooperative, no distress [...] Abdominal pain, generalized ??? Irregular bowel habits ??? Chest wall pain ??? Chest pain PLAN See orders, medications, patient instructions. Breast self exam reviewed, patient encouraged to perform monthly. Mammogram indications discussed. STD screening was not indicated. [facility] ROADMASTER documented in this encounter Plan of Treatment Not on file documented as of this encounter Procedures Procedure Name Priority Date/Time Associated Diagnosis Comments PAP IG LB RFLX HPV HR ASCU RFLX 16,18 Routine 02/20/2014 11:[address] Routine gynecological examination documented in this encounter Results * PAP IG RFLX HPV ASCU RFLX 16/18 (PO REF LAB) (02/20/2014 11:[address]) Diagnosis [facility] ACCOUNT BILL Comment:NEGATIVE FOR INTRAEP ITHELIAL LESION AND MALIGNANCY. Specimen Adequacy [facility] ACCOUNT BILL Comment: Satisfactory for evaluation. ??Endocervical and/or squamous metaplastic cells (endocervical component) are present. 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 [facility] ACCOUNT BILL Note [...] TRACT PREPARED USING PAPANICOLAOU TECHNIQUE / Unknown 02/20/2014 11:[address] 02/21/2014 12:[address] Narrative [facility] ACCOUNT BILL - 02/24/2014 12:[address] No. of containers..01 CYTYC Thin Prep Vial Resulting Agency Comment Myrna Aguero [place] ??Mason ARIZMENDI [phone] Jean Joy MD LAB - PATHOLOGY/CYTO LOGY ORDERABLES [facility] ACCOUNT BILL documented in this encounter Visit Diagnoses Diagnosis Routine gynecological examination- Primary documented in this encounter Care Teams Video Effects Editor Relationship Specialty Start Date End Date Jean Joy MD PCP - OBGYN 12/27/07 Yvan Booth MD [address] [place] [phone] PCP - General 11/04/09 01/04/23 documented as of this encounter
--- OUTSIDE RECORDS SUMMARY | 2024-03-19 20:48 | XMS_ITS | Encounter Summary ---
Author Organization [facility] Address [address] [facility] [place] [address] Care Team Providers Care Site Superintendent Name Role Phone Jean Joy MD Unavailable Yvan Booth MD Primary Care Provider [phone] Reason for Visit * Reason Comments Pain Abdominal Mid abdominal pain; saw primary MD today and was told to come to the ED Encounter Details Date Type Department Care Team (Late st Contact Info) Description 12/29/2011 1:08 PM CDT - 12/29/2011 7:47 PM CDT Emergency ER at [address] [address] Rodo Pickett MD [facility] [place] [address] Abdominal pain, right upper quadrant Discharge Disposition: Home or Self Care Social [...] Sign Reading Time Taken Comments Blood Pressure 108/75 12/29/2011 7:31 PM CDT Pulse 76 12/29/2011 7:31 PM CDT Temperature 36.6 ??C (97.9 ??F) 12/29/2011 7:31 PM CD T Respiratory Rate 16 12/29/2011 7:31 PM CDT Oxygen Saturation 99% 12/29/2011 7:31 PM CDT Inhaled Oxygen Concentration - - Weight 68.9 kg (152 lb) 12/29/2011 1:11 PM CDT Height 162.6 cm (5' 4 ) 12/29/2011 1:11 PM CDT Body Mass Index 26.09 12/29/2011 1:11 PM CDT documented in this encounter Discharge Instructions * Discharge Instructions* Rodo Pickett MD - 12/29/2011 7:13 PM CDT Images from the original note were not included. Abdominal Pain Abdominal pain can be caused by many things. Your caregiver decides the seriousness of your pain byan examination and possibly blood tests and X-rays. Many cases can be observed and treated at home.Most abdominal pain is not caused by a disease and will probably improve without treatment. However, in many cases, more time must pass before a clear cause of the pain can be found. Before that point, it may not be known if you need more testing, or if hospitalization or surgery is needed. HOME CARE INSTRUCTIONS ?? Do not take laxatives unless directed by your caregiver. ?? Take pain medicine only as directed by your caregiver. ?? Only take [id number] or prescription medicines for pain, discomfort, or fever as directed by your caregiver. ?? Try a clear liquid diet (broth, tea, or water) for as long as directed by your caregiver. Slowlymove to a bland diet as tolerated. SEEK IMMEDIATE MEDICAL CARE IF: ?? The pain does not go away. ?? You have a fever. ?? You keep throwing up (vomiting). ?? The pain is felt only in portions of the abdomen. Pain in the right side could possibly be appendicitis. In an adult, pain in the left lower portion of the abdomen could be colitis or diverticulitis. ?? You pass bloody or black tarry stools. MAKE SURE YOU: ?? Understand these instructions. ?? Will watch your condition. ?? Will get help right away if you are not doing well or get worse. Document Released: 12/06/2005 Document Revised: 11/08/2011 Document Reviewed: 10/14/2008 ExitCare?? Patient Information ??2012 [employer]. * Discharge Instructions* Document, Scanned - 01/02/2012 2:16 PM CDT documented in this encounter Medications at Time of Discharge Medication Sig Dispensed Refills Start Date End Date cetirizine (ZYRTEC ALLERGY) 10 MG tablet Take 10 mg by mouth once daily. 02/19/2013 dicyclomine (BENTYL) 20 MG tablet Take 1 Tab by mouth every 6 hours as needed for 4 days. 10 Tab 0 12/29/2011 01/02/2012 famotidine (PEPCID) 20 MG tablet Take 1 [...] 12/29/2011 02/07/2012 documented as of this encounter ED Notes * Consuelo Marcus RN - 12/29/2011 3:59 PM CDT Pt states Morphine helped relieve her pain. @ bedside. VSS. Updated on plan of care. Currently waiting for US results. * Rodo Pickett MD - 12/29/2011 2:01 PM CDT Images from the original note were not included. Provider contact with the patient: 12/29/2011 14:01 Consuelo Darby [id number] [facility] EMER[facility]ENCY DEPARTMENT History Chief Complaint Patient presents with ??? Pain Abdominal Mid abdominal pain; saw primary MD today and was told to come to the ED HPI Comments: The patient reports that she has been having worsening, sharp, nonradiating, upper abdominal pain for 3 days. She reports that the pain is worse with movement. She has had nausea as well, but no vomiting. She has been able to drink, but has not been eating today due to decreased appetite. She denies having diarrhea or urinary discomfort. She reports that her LMP was 3 weeks ago. Shedenies having fever, headache, chest pain, SOB, cough,lightheadedness, numbness or weakness. Pain Abdominal The history is provided by the patient. The current episode started more than 2 days ago. Associated symptoms include nausea.Pertinent negatives include no fever, no vomiting, no dysuria, no frequency, no headaches or no myalgias. No past medical history on file. Past Surgical History Procedure Date ??? section No family history on file. History Social History ??? Marital Status: Spouse [...] Review of Systems Review of Systems Constitutional: Negative for fever. Eyes: Negative for photophobia. Respiratory: Negative for shortness of breath. Cardiovascular: Negative for chest pain. Gastrointestinal: Positive for nausea and abdominal pain. Negative for vomiting. Genitourinary: Negative for dysuria, urgency and frequency. Musculoskeletal: Negative for myalgias and back pain. Neurological: Negative for dizziness and headaches. Physical Exam BP 122/72 Pulse 108 Temp 97.5 ??F Resp 20 Ht 5' 4 (1.626 m) Wt 152 lb (68.947 kg) BMI 26.09 kg/m2 SpO2 97% Physical Exam Nursing note and vitals reviewed. Constitutional: She is oriented to person, place, and time. She appears to be writhing in pain. Sheappears not dehydrated. She appears distressed. Eyes: Conjunctivae and EOM are normal. Pupils are equal, round, and reactive to light. No scleral icterus. Neck: Normal range of motion. Neck supple. No Brudzinski's sign and no Kernig's sign noted. Cardiovascular: Regular rhythm and normal heart sounds. Tachycardia present. Pulmonary/Chest: Effort normal and breath sounds normal. No respiratory distress. She exhibits no tenderness. Abdominal: Soft. Normal aorta and bowel sounds are normal. She exhibits no distension. There is no hepatosplenomegaly. There is no rebound, no guarding and no CVA tenderness. Musculoskeletal: Normal range of motion. Neurological: She is alert and oriented to person, place, and time. Gait normal. Skin: Skin is warm and dry. She is not diaphoretic. Medications Current Outpatient Prescriptions Medication Sig Dispense [...] needed for Nausea/Vomiting. 10 Tab 0 ??? dicyclomine (BENTYL) 20 MG tablet Take 1 Tab by mouth every 6 hours as needed for 4 days. 10 Tab 0 ??? levonorgestrel-ethinyl estradiol (ALESSE; LEVLITE; AVIANE; LUTERA; LESSINA; SRONYX) 0.1-20 MG-MCG tablet Take 1 Tab by mouth once daily. 1 Packet 12 Procedures Procedures EKG Interpretation Lab/SPO2 Interpretation Results for orders placed during the hospital encounter of 12/29/11 CBC W AUTO DIFFERENTIAL Component Value Range WBC 7.03 4.0 - 11.0 (X(10)9/L) RBC 4.47 3.8 - 5.3 (X(10)12/L) Hgb 14.2 12.0 - 16.0 (gm/dl) Hct 41.3 36 - 47 (%) MCV 92.4 80.0 - 99.0 (fl) MCH 31.8 26 - 34 (pg) MCHC 34.4 32.0 - 37.0 (gm/dl) RDW 12.4 11.5 - 14.5 (%) Plt Ct 308 150 - 400 (X(10)9/L) MPV 11.5 9.2 - 12.2 (fl) Manual Diff Comment See Manual Differential COMPREHENSIVE METABOLIC PANEL Component Value Range Glucose 80 65 - 105 (mg/dl) BUN 6 (*) 7 - 21 (mg/dl) Creatinine 0.60 0.50 - 1.30 (mg/dl) SODIUM 139 136 - 145 (mmol/L) Potassium 3.6 3.5 - 5.1 (mmol/L) Chloride 105 98 - 107 (mmol/L) CO2 26 22 - 30 (mmol/L) Calcium 8.7 8.5 - 10.1 (mg/dl) Bili Total 0.4 0.2 - 1.0 (mg/dl) Alk Phos 60 38 - 126 (U/L) AST/SGOT 18 5 - 40 (U/L) ALT/SGPT 22 12 - 78 (U/L) Protein Total 8.0 6.4 - 8.2 (gm/dl) Albumin 3.9 3.4 - 5.0 (gm/dl) eGFR By MDRD >60 >60 URINALYSIS ROUTINE W/REFLEX TO CULTURE Component Value Range Color UA YELLOW Character UA CLEAR Glucose UA NEGATIVE Negative Bili UA NEGATIVE Negative Ketone UA NEGATIVE Negative (mg/dl) Spec [place] UA <=1.005 (*) 1.003 - 1.030 pH Units 7.0 4.5 - 8.0 (pH Units) Protein UA NEGATIVE Negative Urobilinogen UA 0.2 <1.0 (Woo Units) Nitrite UA NEGATIVE Negative (mg/dl) Blood UA 1+ (*) Negative (mg/dl) Leukocyte UA NEGATIVE Negative RBC UA 0-5 0 - 5 ( /HPF) Microscopy Urine Urine Micro Done UA Culture No culture to be done per protocol LIPASE BLOOD Component Value Range Lipase 95 73 - 393 (U/L) AMYLASE BLOOD Component Value Range Amylase 22 15 - 115 (U/L) HCG URINE QUALITATIVE - POINT OF CARE (IP) Component Value Range HCG Qual Urine Negative Low:Negative QC Verified Yes Low:Yes DIFFERENTIAL MANUAL Component Value Range Seg Manual 66 43 - 70 (%) Lymph Manual 25 22 - 41 (%) [place] Manual 7 2 - 11 (%) Atyp Lymph Manual 2 RBC Morph Normal Morphology WBC Morph Few Atypical Lymphs Plt Est Normal Cells Counted 100 US ABDOMEN LIMITED Final Result: Unremarkable examination. CT ABDOMEN AND PELVIS WITH IV CONTRAST Final Result: No acute abnormality. US GALLBLADDER (Results Pending) CT ABDOMEN WWO PELVIS W CONT (Results Pending) Progress Notes ED Course The patient's evaluation has been unremarkable. She has been able to achieve some pain control. Shewas instructed to follow up with her PMD next week for further evaluation and return should her sx persist. Medical Decision Making I have reviewed the: Nursing Notes and Vitals. I have interpreted the following results: Labs, Ultrasound and CT Scans. Clinical Impression Final diagnoses: Abdominal pain, right upper quadrant * Consuelo Marcus, RN - 12/29/2011 1:32 PM CDT Pt c/o mid upper abd pain for the past three days. States it gets upon mvmt. Denies any difficulty with urination or having BMs. C/o nausea. documented in this encounter Miscellaneous Notes * Miscellaneous Scans - Document, Scanned - 01/02/2012 2:10 PM CDT documented in this encounter Plan of Treatment Not on file documented as of this encounter Procedures Procedure Name Priority Date/Time Associated Diagnosis Comments CT ABDOMEN PELVIS W CONTRAST STAT 12/29/2011 6:45 PM CDT Abdominal pain, right upper quadrant US ABDOMEN LIMITED STAT 12/29/2011 2: 51 PM CDT Abdominal pain, right upper quadrant DIFFERENTIAL MANUAL STAT 12/29/2011 1 :43 PM CDT CBC W AUTO DIFFERENTIAL STAT 12/29/2011 1:43 PM CDT COMPREHENSIVE METABOLIC PANEL STAT 12/29/2011 1:43 PM CDT LIPASE BLOOD STAT 12/29/2011 1:43 PM CDT AMYLASE BLOOD STAT 12/29/2011 1:43 PM CDT URINALYSIS REFLEX MICROSCOPIC REFLEX CULTURE STAT 12/29/2011 1:15 PM CDT HCG URINE QUALITATIVE - POINT OF CARE STAT 12/29/2011 1:15 PM CDT documented in this encounter Results * CT ABDOMEN AND PELVIS WITH IV CONTRAST (12/29/2011 6:45 PM CDT) Anatomical Region Laterality Modality Abdomen, Pelvis Computed Tomogra phy 12/29/2011 6:51 PM CDT Impressions 12/29/2011 6:51 PM CDT No acute abnormality. Narrative 12/29/2011 6:[address] Abdomen With Contrast CT Pelvis With Contrast Clinical Indication: Nausea vomiting and abdominal pain Technique: Axial CT images from the lung bases through the pubic symphysis were obtained following Omnipaque 350 90 mL intravenous contrast administration. Oral contrast is also administered. Findings: The lung bases are clear and no free air is seen. Appendix is within normal limits. No free fluid is present. Abdominal viscera are unremarkable. The bowel has normal caliber. The liver and gallbladder, pancreas and spleen, stomach and duodenum, adrenal glands and kidneys are unremarkable. Procedure Note Ambrocio Roe MD - 12/29/[address] With Contrast CT Pelvis With Contrast Clinical Indication: Nausea vomiting and abdominal pain Technique: Axial CT images from the lung bases through the pubic symphysis were obtained following Omnipaque 350 90 mL intravenous contrast administration. Oral contrast is also administered. Findings: The lung bases are clear and no free air is seen. Appendix is within normal limits. No free fluid is present. Abdominal viscera are unremarkable. The bowel has normal caliber. The liver and gallbladder, pancreas and spleen, stomach and duodenum, adrenal glands and kidneys are unremarkable. IMPRESSION No acute abnormality. Rodo Pickett MD CT ORDERABLES * US ABDOMEN LIMITED (12/29/2011 2:51 [...] examination. Rodo Pickett MD US ORDERABLES * DIFFERENTIAL MANUAL (12/29/2011 1:43 PM CDT) Neutrophils % Manual 66 43 - 70 % [facility] Lymphocytes % Manual 25 22 - 41 % [facility] Monocytes % Manual 7 2 - 11 % [facility] Atypical Lymphocyte % Manual 2 % [facility] RBC Morphology Normal Morphology [facility] WBC Morph Few Atypical Lymphs [facility] Platelet Estimation Normal [facility] Cells Counted 100 [facility] BLOOD SPECIMEN / Unknown 12/29/2011 1:43 PM CDT 12/29/2011 3:06 PM CDT Narrative [facility] - 12/29/2011 3:12 PM CDT Perform for patients with UPPER abd* Rodo Pickett MD LAB - HEMATOLOGY ORD ERABLES Performing Organization Address [facility] Co de Phone Number [facility] [address] [place] [address] * AMYLASE BLOOD (12/29/2011 1:43 PM CDT) Amylase 22 15 - 115 U/L [facility] Blood specimen (specimen) BLOOD SPECIMEN / Unknown 12/29/2011 1:43 PM CDT 12/29/2011 2:02 PM CDT Narrative [facility] - 12/29/2011 2:21 PM CDT Perform for patients with UPPER abd* Trevor Chakraborty MD LAB - CHEMISTRY [place] BLACKMAN Performing Organization Address [facility] de Phone Number [facility] [address] [place] [address] * LIPASE BLOOD (12/29/2011 1:43 PM CDT) Pathologist [facility] Lipase 95 73 - 393 U/L [facility] Blood specimen (specimen) BLOOD SPECIMEN / Unknown 12/29/2011 1:43 PM CDT 12/29/2011 2:02 PM CDT Narrative [facility] - 12/29/2011 2:21 PM CDT Perform for patients with UPPER abd* Trevor Chakraborty MD LAB - CHEMISTRY [place] BLACKMAN Performing Organization Address [facility] Co de Phone Number [facility] [address] [place] [address] * (ABNORMAL) COMPREHENSIVE METABOLIC PANEL (12/29/2011 1:43 PM CDT) Glucose 80 65 - 105 mg/dl [facility] BUN 6(L) 7 - 21 mg/dl [facility] Creatinine 0.60 0.50 - 1.30 mg/dl [facility] Sodium 139 136 - 145 mmol/L [facility] Potassium 3.6 3.5 - 5.1 mmol/L [facility] Chloride 105 98 - 107 mmol/L [facility] CO2 26 22 - 30 mmol/L [facility] Calcium 8.7 8.5 - 10.1 mg/dl [facility] Bilirubin Total 0.4 0.2 - 1.0 mg/dl [facility] Alkaline Phosphatase 60 38 - 126 U/L [facility] AST 18 5 - 40 U/L [facility] ALT 22 12 - 78 U/L [facility] Protein Total 8.0 6.4 - 8.2 gm/dl [facility] Albumin 3.9 3.4 - 5.0 gm/dl [facility] eGFR By MDRD >60 >60 [facility] Blood specimen (specimen) BLOOD SPECIMEN / Unknown 12/29/2011 1:43 PM CDT 12/29/2011 2:02 PM CDT Narrative [facility] - 12/29/2011 2:21 PM CDT Perform for patients with UPPER abd* Trevor Chakraborty MD LAB - CHEMISTRY [place] BLACKMAN Performing Organization Address City/[facility]/ZIP Co de Phone Number [facility] [address] [address] * CBC W AUTO DIFFERENTIAL (12/29/2011 1:43 PM CDT) WBC 7.03 4.0 - 11.0 X(10)9/L [facility] RBC 4.47 3.8 - 5.3 X(10)12/ L [facility] Hemoglobin 14.2 12.0 - 16.0 gm/dl [facility] Hematocrit 41.3 36 - 47 % [facility] MCV 92.4 80.0 - 99.0 fl [facility] MCH 31.8 26 - 34 pg [facility] MCHC 34.4 32.0 - 37.0 gm/dl [facility] RDW 12.4 11.5 - 14.5 % [facility] Platelet Count 308 150 - 400 X(10)9/L [facility] MPV 11.5 9.2 - 12.2 fl [facility] Comment Manual Diff See Manual Differential [facility] Blood specimen (specimen) BLOOD SPECIMEN / Unknown 12/29/2011 1:43 PM CDT 12/29/2011 2:02 PM CDT Narrative [facility] - 12/29/2011 2:13 PM CDT Perform for patients with UPPER abd* Trevor Chakraborty MD LAB - HEMATOLOGY [place]KUR COCHRAN [facility] [address] [place] [address] * HCG URINE QUALITATIVE - POINT OF CARE (IP) (12/29/2011 1:15 PM CDT) HCG Qual Urine Negative Negative [facility] POCT TEST[facility] QC Verified Yes Yes [facility] POC T TESTING Urine specimen (specimen) URINE / Unknown 12/29/2011 1:15 PM CDT Trevor Chakraborty MD LAB - POINT OF CARE ORDERABLES Performing Organization Address [facility] de Phone Number [facility] [address] [place] [address] * (ABNORMAL) URINALYSIS ROUTINE W/REFLEX TO CULTURE (12/29/2011 1:15 PM CDT) Color UA YELLOW [facility] Character UA CLEAR [facility] Glucose UA NEGATIVE Negative [facility] Bilirubin UA NEGATIVE Negative [facility] Ketone UA NEGATIVE Negative mg/dl [facility] Specific [place] UA <=1.005(L) 1.003 - 1.030 [facility] pH UA 7.0 4.5 - 8.0 pH Units [facility] Protein UA NEGATIVE Negative [facility] Urobilinogen UA 0.2 <1.0 Woo Units [facility] Nitrite UA NEGATIVE Negative mg/dl [facility] Blood UA 1+(H) Negative mg/dl [facility] Leukocyte UA NEGATIVE Negative [facility] RBC UA 0-5 0 - 5 /HPF [facility] Microscopy Examination Urine Urine Micro Done [facility] Culture Urine No culture to be done per protocol [facility] Urine specimen (specimen) URINE SPECIMEN OBTAINED BY CLEAN CATCH PROCEDURE / Unknown 12/29/2011 1:15 PM CDT 12/29/2011 1:35 PM CDT Trevor Chakraborty MD LAB - URINALYSIS ORD ERABLES Performing Organization Address [facility] Co de Phone Number [facility] [address] [place] [address] documented in this encounter Visit Diagnoses Diagnosis Abdominal pain, right upper quadrant documented in this encounter Administered Medications Inactive Administered Medications - up to 3 most recent administrations Medication Order MAR Action Action Date Dose Rate Site famotidine (PEPCID) injection 20 mg 20 mg, Intravenous, ONCE, 1 dose, On Sun12/29/11 at 1630 $ Given 12/29/2011 4:30 PM CDT 20 mg iohexol (OMNIPAQUE 350) contrast Intravenous, CONTRAST ONCE, Starting on Sun12/29/11 at 1658, Until Sun12/29/11 at 2048 $ Given 12/29/2011 6:33 PM CDT 90 mL Antec ubital iohexol (OMNIPAQUE 350) contrast Oral, CONTRAST ONCE, Starting on Sun12/29/11 at 1658, Until Sun12/29/11 at 2047 $ Given 12/29/2011 5:25 PM CDT 1 mL lidocaine-maalox ES- (GI COCKTAIL) 60 mL, Oral, ONCE, 1 dose, On Sun12/29/11 at 1645 $ Given 12/29/2011 4:20 PM CDT 60 mL morphine injection 2 mg 2 mg, Intravenous, ONCE, 1 dose, On Sun12/29/11 at 1430 $ Given 12/29/2011 2:31 PM CDT 2 mg morphine injection 2 mg 2 mg, Intravenous, ONCE, 1 dose, On Sun12/29/11 at 1630 $ Given 12/29/2011 5:25 PM CDT 2 mg ondansetron (ZOFRAN) injection 4 mg 4 mg, Intravenous, ONCE, 1 dose, On Sun12/29/11 at 1400 $ Given 12/29/2011 1:54 PM CDT 4 mg ondansetron (ZOFRAN) injection ADS Med 1 dose, Starting on Sun12/29/11 at 1353, Until Sun12/29/11 at 1354, Consuelo Ding: danielito override documented in this encounter Active and Recently Administered Medications Times are shown in CDT. Scheduled Medication Order 12/27/2011 12/28/2011 12/29/2011 famotidine (PEPCID) injection 20 mg (COMPLETED) 20 mg, Intravenous, ONCE, 1 dose, On Sun12/29/11 at 1630 1630 ($ Given - Prov ider: Consuelo Marcus RN) iohexol (OMNIPAQUE 350) contrast (CANCELED) Intravenous, CONTRAST ONCE, Starting on Sun12/29/11 at 1658, Until Sun12/29/11 at 2048 1833 ($ Given - Prov ider: Neftali Foote, RT(R)) iohexol (OMNIPAQUE 350) contrast (CANCELED) Oral, CONTRAST ONCE, Starting on Sun12/29/11 at 1658, Until Sun12/29/11 at 2048 1725 ($ Given - Prov ider: Consuelo Marcus, AMBROSE) lidocaine-maalox ES- (GI COCKTAIL) (COMPLETED) 60 mL, Oral, ONCE, 1 dose, On Sun12/29/11 at 1645 1620 ($ Given - Prov ider: Consuelo Marcus, AMBROSE) morphine injection 2 mg (COMPLETED) 2 mg, Intravenous, ONCE, 1 dose, On Sun12/29/11 at 1430 1431 ($ Given - Prov ider: Consuelo Marcus, AMBROSE) morphine injection 2 mg (COMPLETED) 2 mg, Intravenous, ONCE, 1 dose, On Sun12/29/11 at 1630 1725 ($ Given - Prov ider: Consuelo Marcus, AMBROSE) ondansetron (ZOFRAN) injection 4 mg (COMPLETED) 4 mg, Intravenous, ONCE, 1 dose, On Sun12/29/11 at 1400 1354 ($ Given - Prov ider: Consuelo Marcus, AMBROSE) documented in this encounter Care Teams Site Superintendent Relationship Specialty Start Date End Date Jean Joy MD PCP - OBGYN 12/27/07 Yvan Booth MD [address] [place] [id number] PCP - General 11/04/09 01/04/23 documented as of this encounter
--- OUTSIDE RECORDS SUMMARY | 2024-03-19 20:48 | XMS_ITS | Encounter Summary ---
Author Organization [facility] Address [address] [place] [address] Care Team Providers Care Warehouse Associate Driver Name Role Phone Jean Joy MD Unavailable [phone] Yvan Booth MD Primary Care Provider [phone] Encounter Details Date Type Department Care Team (Latest Contact Info) Description 07/07/2013 7:50 PM CDT - 07/07/2013 8:09 PM CDT Hospital Encounter [facility] [address] [place] [address] Barbara Roy, SEAMER PANTY [facility] [address] [place], [place] [id number] Discharge Disposition: Home or Self Care Social [...] Sign Reading Time Taken Comments Blood Pressure 154/83 07/07/2013 7:55 PM CDT Pulse 86 07/07/2013 7:55 PM CDT Temperature 36.9 ??C (98.4 ??F) 07/07/2013 7:55 PM CD T Respiratory Rate 20 07/07/2013 7:55 PM CDT Oxygen Saturation 100% 07/07/2013 7:55 PM CDT Inhaled Oxygen Concentration - - Weight 74.8 kg (165 lb) 07/07/2013 7:55 PM CDT Height 162.6 cm (5' 4 ) 07/07/2013 7:55 PM CDT Body Mass Index 28.32 07/07/2013 7:55 PM CDT documented in this encounter Medications [...] 07/08/2013 02/20/2014 documented as of this encounter Progress Notes * Barbara Roy, SEAMER PANTY HOSE-MILLING MACHINIST - 07/07/2013 8:01 PM CDT [facility] PCP: Yvan Booth CHIEF COMPLAINT: Left chest, left shoulder, LUQ abdominal pain for 5 days SUBJECTIVE: Consuelo Darby is a 32 y.o. female with a PMH significant for left shoulder, chest and upper leftback pain for 5 days. Also c/o nausea, luq abdominal pain for 5 days. Chest pain is not reproducible but does have left shoulder pain worsening with deep inspiration. Has had some occasional cough but not that frequently. Reports symptom onset beginning with nausea and abdominal discomfort. Denies fever,chills, productive cough, vomiting, diarrhea, sob, difficulty breathing. Maternal gpa - CAD 50s. Past Medical History Diagnosis Date ??? GERD [...] Hypertension Mother ??? Thyroid Disease Mother History Substance Use Topics ??? Smoking status: Current Every Day Smoker -- 0.5 packs/day Types: Cigarettes ??? Smokeless tobacco: Never Used ??? Alcohol Use: 0.0 oz/week 0-2 Cans of beer per week Occasional Current Outpatient Prescriptions on File Prior to Encounter Medication Sig Dispense Refill ??? levonorgestrel-ethinyl estradiol (LESSINA-28) 0.1-20 MG-MCG tablet Take 1 Tab by mouth once daily. 3 Packet 3 No current facility-administered medications on file prior to encounter. Allergies Allergen Reactions ??? 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 Review of Systems - History obtained from the patient General ROS: negative for - chills, fatigue or fever ENT ROS: negative for - headaches, nasal congestion, nasal discharge, sinus pain or sore throat Respiratory ROS: positive for - cough and radiating pain to left shoulder, left upper back with deep inspiration; has an occasional nonproductive cough - not that frequently negative for - sputum changes, stridor, tachypnea or wheezing Cardiovascular ROS: positive for - chest pain on left, radiates to left shoulder negative for - dyspnea on exertion, edema, irregular heartbeat, murmur, orthopnea, palpitations, rapid heart rate or shortness of breath Gastrointestinal ROS: positive for - abdominal pain and epigastric and LUQ; + nausea negative for - blood in stools, constipation, diarrhea, heartburn, hematemesis or melena Genito-Urinary ROS: negative Musculoskeletal ROS: positive for - radiating pain to left shoulder and left upper back; no injury;no weakness Neurological ROS: negative Dermatological ROS: negative OBJECTIVE: Vitals: 07/07/13 1955 BP: 154/83 Pulse: 86 Temp: 98.4 ??F Resp: 20 Weight: 74.844 kg (165 lb) SpO2: 100% Pain Assessment Pain Score: Five Appearance alert, visibly uncomfortable; no distress ENT exam reveals ENT exam normal, no neck nodes or sinus tenderness Chest clear to auscultation, no wheezes, rales or rhonchi, symmetric air entry; no chest wall tenderness to palpation CVS exam normal rate, regular rhythm, normal S1, S2, no murmurs, rubs, clicks or gallops Abdominal exam soft, nontender, nondistended, no masses or organomegaly tenderness noted LUQ no rebound tenderness noted bowel sounds normal no bladder distension noted no pulsatile masses No results found for this visit on 07/07/13. ASSESSMENT: 1. Chest pain (786.50) -left with radiation to left shoulder; left trapezius region 2. Abdominal pain, left upper quadrant (789.02) PLAN: Orders Placed This Encounter ??? XR CHEST PA AND LATERAL Standing Status: Future Number of Occurrences: 1 Standing Expiration Date: 07/07/2014 Order Specific Question: Exam to be performed? Answer: Per Radiologist protocol ??? EKG 12-LEAD Standing Status: Standing Number of Occurrences: 1 Standing Expiration Date: Discussed plan of care that could include EKG , CXR, UA, HCG. We discussed that there is the potential for needing a higher evaluation after our findings. She indicated that she would go to [facility]. She declined needing EMS transfer as well as any further assessment here. Report given to Access Line in expectation of her arrival. AVS reviewed with Patient. The Patient indicates understanding of these issues and agrees with the plan. Patient discharged to Emergency Room. [place] [facility] documented in this encounter Miscellaneous Notes * Miscellaneous Scans - Document, Scanned - 07/11/2013 11:48 PM CDT * Addendum Note - Oksana Negron [facility] - 07/08/2013 5:10 PM CDTEncounter addended by: CHENTE Santiago on: 07/08/2013 5:10 PM
Documentation filed: Charges VN documented in this encounter Plan of Treatment Scheduled Orders Name Type Priority Associated Diagnoses Orde r Schedule XR CHEST PA AND LATERAL Imaging Routine Pain 1 Occurrences starting 07/07/2013 until 07/07/2014 EKG 12-LEAD ECG Routine ONCE for 1 Oc currences starting 07/07/2013 until 07/07/2013 documented as of this encounter Visit Diagnoses Diagnosis Chest pain- Primary Abdominal pain, left upper quadrant Pain Generalized pain documented in this encounter Care Teams Warehouse Associate Driver Relationship Specialty Start Date End Date Jean Joy MD PCP - OBGYN 12/27/07 Yvan Booth MD [address] [place] [address] PCP - General 11/04/09 01/04/23 documented as of this encounter
--- OUTSIDE RECORDS SUMMARY | 2024-03-19 20:48 | XMS_ITS | Encounter Summary ---
Author Organization [facility] Address [address] [place] [address] Care Team Providers Care Travel Ot Name Role Phone Jean Joy MD Unavailable Yvan Booth MD Primary Care Provider [phone] Reason for Visit * Reason Comments Care Encounter Details Date Type Department Care Team (Late st Contact Info) Description 01/21/2016 2:30 PM JALOUSIE INSTALLER visit [facility] - BRAKE REPAIRER [address] [address] Shania Silva MD [address] [id number] [place]: [id number] Social History Tobacco Use Types Packs/Day Years [...] Sign Reading Time Taken Comments Blood Pressure 132/88 01/21/2016 2:24 PM JALOUSIE INSTALLER Pulse - - Temperature - - Respiratory Rate - - Oxygen Saturation - - Inhaled Oxygen Concentration - - Weight 91.5 kg (201 lb 12.8 oz) 01/21/2016 2:24 PM JALOUSIE INSTALLER Height 162.6 cm (5' 4 ) 01/21/2016 2:24 PM JALOUSIE INSTALLER Body Mass Index 34.64 01/21/2016 2:24 PM JALOUSIE INSTALLER documented in this encounter Patient Instructions * Patient Instructions* Shania Silva MD - 01/21/2016 2:33 PM JALOUSIE INSTALLER If you are having more than 6 contractions in an hour for more than 1 hour, be sure to rest, drink lots of fluids, have a snack & count contractions for the next hour. If it is still more than 6,call me. USIE INSTALLER documented in this encounter Progress Notes * Shania Silva MD - 01/21/2016 2:30 PM CST Normal GTT. No cramps or contractions. Active baby. PTL precautions. USIE INSTALLER documented in this encounter Plan of Treatment Not on file documented as of this encounter Visit Diagnoses Diagnosis care, subsequent , third trimester (HCC)- Primary 32 weeks gestation of (HCC) state, incidental Previous delivery, antepartum (HCC) documented in this encounter Care Teams Travel Ot Relationship Specialty Start Date End Date Jean Joy MD PCP - OBGYN 12/27/07 Yvan Booth MD [address] [place] [id number] PCP - General 11/04/09 01/04/23 documented as of this encounter
--- OUTSIDE RECORDS SUMMARY | 2024-03-19 20:48 | XMS_ITS | Encounter Summary ---
Author Organization [facility] Address [address] [facility] [place] [address] Care Team Providers Care Cv/Cvn Cv Tsc System Operator Name Role Phone Jean Joy MD Unavailable Yvan Booth MD Primary Care Provider [phone] Reason for Visit * Auth/Cert - Closed Specialty Diagnoses / Procedures Referred By Contac t Referred To Contact Diagnoses Other specified disorder of gallbladder Procedures LAPAROSCOPIC CHOLECYSTECTOMY SINGLE INCISION Referral ID Status Reason Start Date Expiration Date Visits Re quested Visits Authorized [id number] Closed 1 1 Encounter Details Date Type Department Care Team (Late st Contact Info) Description 02/22/2012 7:52 PM CHIEF DISPATCHER SERVICE Anesthesia Event [facility] [address] [place] [address] Dangelo Vance MD [address] [place] [address] [address] [place] [address] Anesthesia Record Procedure Summary Procedure Name Responsible Anesthesiologist Anesthesia Start Time Anesthesia Stop Time LAPAROSCOPIC CHOLECYSTECTOMY (SINGLE INCISION) (Abdomen) Dangelo Vance MD 02/22/12 1500 Events Date Time Event Comment 02/22/2012 1204 1352 An Start 1354 An Start Data 1354 an gisselle now In room 1358 An Induction 1400 An Intubation 1406 an gisselle now Time out 1441 An Emergence 1454 ANPTO2 1454 Extubation 1454 an stop data 1500 An Stop Meds Name Total midazolam 1 mg/mL injection 2 mg fentaNYL injection 250 mcg lidocaine 2% injection 50 mg propofol (DIPRIVAN) injection 130 mg rocuronium 10 mg/ml injection 20 mg glycopyrrolate (ROBINUL) injection 0.6 m g ondansetron injection 4 mg ketorolac (TORADOL) 30 mg/ml injection 3 0 mg dexamethasone (DECADRON) 4 mg/ml injecti on 4 mg neostigmine 1 mg/mL injection 4 mg morphine 10 mg/mL injection 10 mg lactated ringers infusion 1,000 mL * Agents Name Insp. N2O Exp. Sevoflurane Exp. Desflurane O2 Air Insp. Sevoflurane Insp. Desflurane * Blood No blood administrations on file. Lines, Drains, and Airways Type Details Placement Removal Peripheral IV Date: 02/22/12; Time : 1255; Orientation: Left; Placed By: Renzo BOGGS; Tolerance: Well 02/22/12 1255 by Zeinab Blair RN 02/22/12 1727 by Shruti Fuentes RN ETT Date: 02/22/12; Time : 1307; Blade Type: Milana; Blade Size: 3; Laryngoscopy View: Grade 1; Tube: Endotracheal Tube; Tube Type: Cuffed-inflated; Tube Size(mm): 7 MM; Depth of Insertion: 20 CM; Cuff Infated: Air; Cuff Vol(mL): 6 mL; Verified By: Chest Auscultation, CO2 Monitor 02/22/12 1307 by Aminata Cain APRN-CUSTOMER SOLUTIONS COORDINATOR 02/22/12 1454 by Aminata Cain APRN-CORY Gastric Tube 02/22/12; 1401; OGT; 18; Well, General Anesthesia; 02/22/12; 1441; schoo 02/22/12 1401 by Aminata Cain APRN-CUSTOMER SOLUTIONS COORDINATOR 02/22/12 1441 by Aminata Cain APRN-CORY RETIRED Procedural Site 02/22/12; 1409; Umbilicus; Laparoscopic; 02/22/12; 2342 02/22/12 1409 by Kerri Benavidez RN 02/22/12 2342 by Generic, Auto Release documented in this [...] as of this encounter Progress Notes * EmersonAminata jonesCORY - 02/22/2012 3:00 PM CST ANESTHESIA POSTPROCEDURE EVALUATION Consuelo Darby is a 31 y.o. female Temp: 36.9 ??C Pulse: 109 Resp: 15 BP: 129/60 mmHg Pain Rating Score #: 0 Mental status: sufficiently recovered from acute administration of anesthesia to participate in theevaluation. Level of consciousness: awake General appearance: well-appearing Respiratory function: natural airway. Cardiac: stable Pain: comfortable/acceptable PONV: None Postop hydration: adequate. Final anesthesia type: general endotracheal Patient may be released from anesthesia care. F DISPATCHER SERVICE * Dangelo Vance MD - 02/22/2012 12:04 PM CST PRE-ANESTHESIA EVALUATION Procedure(s) (LRB): LAPAROSCOPIC CHOLECYSTECTOMY SINGLE INCISION () Vital Signs: History: Past Medical History Diagnosis Date ??? GERD (gastroesophageal reflux disease) ??? Abdominal pain, right upper quadrant Past Surgical History Procedure Date ??? section ??? Colonoscopy Allergies: is allergic to latex. Medications: No current facility-administered medications for this visit. No current outpatient prescriptions on file. Facility-Administered Medications Ordered in Other Visits Medication Dose Route Frequency Provider Last Rate Last Dose ??? ceFAZolin (ANCEF) IVPB 2 g 2 g Intravenous pre-OP multiple Jean Amos MD Physical Exam: NPO status: Since midnight Oriented x 3 Dental exam findings: OK. Airway class: I. Pulmonary exam: clear to auscultation. Cardiovascular exam positive for: S1 S2. Plan for Anesthesia: ASA 2 Planned intraoperative anesthesia: general Planned postop destination: PACU Planned induction: Intravenous Anesthetic plan, risks and benefits discussed with patient. Anesthesia consent: Consent for anesthesia obtained Discussed anesthesia plan with: CUSTOMER SOLUTIONS COORDINATOR. F DISPATCHER SERVICE documented in this encounter Plan of Treatment Not on file documented as of this encounter Visit Diagnoses Not on filedocumented in this encounter Administered Medications Inactive Administered Medications - up to 3 most recent administrations Medication Order MAR Action Action Date Dose Rate Site dexamethasone (DECADRON) injection PRN, Nausea/Vomiting, Starting on Katy 02/22/12 at 1409, Until Katy 02/22/12 at 1500, Intra-op $ Given 02/22/2012 2:09 PM CHIEF DISPATCHER SERVICE 4 mg fentaNYL (SUBLIMAZE) injection PRN, Starting on Katy 02/22/12 at 1354, Until Katy 02/22/12 at 1500, Intra-op $ Given 02/22/2012 2:10 PM CHIEF DISPATCHER SERVICE 50 mcg $ Given 02/22/2012 2:09 PM CHIEF DISPATCHER SERVICE 100 mcg $ Given 02/22/2012 1:54 PM CHIEF DISPATCHER SERVICE 100 mcg glycopyrrolate (ROBINUL) injection PRN, Starting on Katy 02/22/12 at 1440, Until Katy 02/22/12 at 1500, Intra-op $ Given 02/22/2012 2:40 PM CHIEF DISPATCHER SERVICE 0.6 mg ketorolac (TORADOL) injection PRN, Starting on Katy 02/22/12 at 1435, Until Katy 02/22/12 at 1500, . WASTE DISPOSAL INSTRUCTIONS: Black Bin Disposal required., Intra-op $ Given 02/22/2012 2:35 PM CHIEF DISPATCHER SERVICE 30 mg lactated ringers infusion at 20 mL/hr, Intravenous, PRE-OP CONTINUOUS, Starting on Katy 02/22/12 at 1215, Until Katy 02/22/12 at 1842, Pre-op $ New Bag/Syringe 02/22/2012 2:50 PM CHIEF DISPATCHER SERVICE mL $ New Bag/Syringe 02/22/2012 1:58 PM CHIEF DISPATCHER SERVICE mL $ New Bag/Syringe 02/22/2012 12:55 PM CHIEF DISPATCHER SERVICE 20 mL /hr Left Hand lidocaine (XYLOCAINE) 2 % injection PRN, Starting on Katy 02/22/12 at 1358, Until Katy 02/22/12 at 1500, Intra-op $ Given 02/22/2012 1:58 PM CHIEF DISPATCHER SERVICE 50 mg midazolam (VERSED) injection PRN, Starting on Katy 02/22/12 at 1352, Until Katy 02/22/12 at 1500, Intra-op $ Given 02/22/2012 1:52 PM CHIEF DISPATCHER SERVICE 2 mg morphine injection PRN, Starting on Katy 02/22/12 at 1442, Until Katy 02/22/12 at 1500, Intra-op $ Given 02/22/2012 2:58 PM CHIEF DISPATCHER SERVICE 8 mg $ Given 02/22/2012 2:42 PM CHIEF DISPATCHER SERVICE 2 mg neostigmine (PROSTIGMIN) injection PRN, Starting on Katy 02/22/12 at 1440, Until Katy 02/22/12 at 1500, Intra-op $ Given 02/22/2012 2:40 PM CHIEF DISPATCHER SERVICE 4 mg ondansetron (ZOFRAN) injection PRN, Nausea/Vomiting, Starting on Katy 02/22/12 at 1435, Until Katy 02/22/12 at 1500, Intra-op $ Given 02/22/2012 2:35 PM CHIEF DISPATCHER SERVICE 4 mg propofol (DIPRIVAN) injection PRN, Starting on Katy 02/22/12 at 1358, Until Katy 02/22/12 at 1500, Intra-op $ Given 02/22/2012 1:58 PM CHIEF DISPATCHER SERVICE 130 mg rocuronium (ZEMURON) injection PRN, Starting on Katy 02/22/12 at 1358, Until Katy 02/22/12 at 1500, Intra-op $ Given 02/22/2012 1:58 PM CHIEF DISPATCHER SERVICE 20 mg documented in this encounter Care Teams Cv/Cvn Cv Tsc System Operator Relationship Specialty Start Date End Date Jean Joy MD PCP - OBGYN 12/27/07 Yvan Booth MD [address] [place] [id number] PCP - General 11/04/09 01/04/23 documented as of this encounter
--- OUTSIDE RECORDS SUMMARY | 2024-03-19 20:48 | XMS_ITS | Encounter Summary ---
Author Organization [facility] Address [address] [place] [address] Care Team Providers Care Real Estate Services Administrator Name Role Phone Jean Joy MD Unavailable [phone] Yvan Booth MD Primary Care Provider [phone] Reason for Visit * Reason Comments Routine Visit Encounter Details Date Type Department Care Team (Late st Contact Info) Description 02/18/2016 11:00 AM COLLECTION DEVELOPMENT LIBRARIAN visit [facility] Medical [facility] - RESEARCH AFFILIATE [address] [facility] [address] [place] [address] Jean Joy MD [address] [facility] [place] [address] [place]: [id number] Social History Tobacco Use Types Packs/Day Years [...] Sign Reading Time Taken Comments Blood Pressure 140/86 02/18/2016 10:54 AM COLLECTION DEVELOPMENT LIBRARIAN Pulse - - Temperature - - Respiratory Rate - - Oxygen Saturation - - Inhaled Oxygen Concentration - - Weight 94.3 kg (208 lb) 02/18/2016 10:54 AM COLLECTION DEVELOPMENT LIBRARIAN Height - - Body Mass Index 35.7 01/21/2016 2:24 PM COLLECTION DEVELOPMENT LIBRARIAN documented in this encounter Progress Notes * Jean Joy MD - 02/18/2016 11:07 AM CST Has a URI, otherwise no c/o Minimal edema Active baby Will check labs due to Hx of HELLP ECTION DEVELOPMENT LIBRARIAN documented in this encounter Plan of Treatment Not on file documented as of this encounter Procedures Procedure Name Priority Date/Time Associated Diagnosis Comments CBC W/O DIFFERENTIAL Routine 02/18/2016 12:09 PM COLLECTION DEVELOPMENT LIBRARIAN Elevated blood pressure COMPREHENSIVE METABOLIC PANEL Routine 02/18/2016 12:09 PM COLLECTION DEVELOPMENT LIBRARIAN Elevated blood pressure CULTURE STREP B Routine 02/18/2016 10:58 AM COLLECTION DEVELOPMENT LIBRARIAN care, subsequent , third trimester (HCC) documented in this encounter Results * (ABNORMAL) COMPREHENSIVE METABOLIC PANEL (02/18/2016 12:09 PM COLLECTION DEVELOPMENT LIBRARIAN) Glucose 110(H) 65 - 99 mg/dL [facility] ACCOUNT BILL BUN 7 6 - 20 mg/dL [facility] ACCOUNT BILL Creatinine 0.64 0.57 - 1.00 mg/dL [facility] ACCOUNT BILL eGFR by MDRD 118 >59 mL/min/1.7 3 [facility] ACCOUNT BILL eGFR by MDRD 136 >59 mL/min/1.7 3 [facility] ACCOUNT BILL BUN/Creatinine Ratio 11 8 - 20 [facility] ACCOUNT BILL Sodium 137 136 - 144 mmol/L [facility] ACCOUNT BILL Comment: ? Effective February 21, 2016 the reference interval ? for Sodium, Serum will be changing to: ? 134 - 144 Potassium 4.0 3.5 - 5.2 mmol/L [facility] ACCOUNT BILL Chloride 102 97 - 106 mmol/L [facility] ACCOUNT BILL Comment: ? Effective February 21, 2016 the reference interval ? for Chloride, Serum will be changing to: ?96 - 106 CO2 18 18 - 29 mmol/L [facility] ACCOUNT BILL Calcium 9.1 8.7 - 10.2 mg/dL [facility] ACCOUNT BILL Protein Total 6.1 6.0 - 8.5 g/dL [facility] ACCOUNT BILL Albumin 3.5 3.5 - 5.5 g/dL [facility] ACCOUNT BILL Globulin Total 2.6 1.5 - 4.5 g/dL [facility] ACCOUNT BILL Albumin/Globulin Ratio 1.3 1.1 - 2.5 [facility] ACCOUNT BILL Bilirubin Total <0.2 0.0 - 1.2 mg/dL [facility] ACCOUNT BILL Alkaline Phosphatase 100 39 - 117 IU/L [facility] ACCOUNT BILL AST 21 0 - 40 IU/L [facility] ACCOUNT BILL ALT 14 0 - 32 IU/L [facility] ACCOUNT BILL Blood BLOOD SPECIMEN / Unknown 02/18/2016 12:09 PM COLLECTION DEVELOPMENT LIBRARIAN 02/18/2016 Narrative Resulting Agency Comment [facility] [address] ??[facility] [id number] Jean Joy MD LAB - CHEMISTRY BIBIANA BLACKMAN [facility] ACCOUNT BILL [address] [place] [address] * CBC W/O DIFFERENTIAL (02/18/2016 12:09 PM COLLECTION DEVELOPMENT LIBRARIAN) WBC 10.4 3.4 - 10.8 x10E3/uL [facility] ACCOUNT BILL RBC 3.98 3.77 - 5.28 x10E6/uL [facility] ACCOUNT BILL Hemoglobin 12.6 11.1 - 15.9 g/dL [facility] ACCOUNT BILL Hematocrit 38.6 34.0 - 46.6 % [facility] ACCOUNT BILL MCV 97 79 - 97 fL [facility] ACCOUNT BILL MCH 31.7 26.6 - 33.0 pg [facility] ACCOUNT BILL MCHC 32.6 31.5 - 35.7 g/dL [facility] ACCOUNT BILL RDW 14.4 12.3 - 15.4 % [facility] ACCOUNT BILL Platelet Count 314 150 - 379 x10E3/uL [facility] ACCOUNT BILL nRBC NOT NEEDED [facility] ACCOUNT BILL Comment:Ancillary determined the test is not needed Blood BLOOD SPECIMEN / Unknown 02/18/2016 12:09 PM COLLECTION DEVELOPMENT LIBRARIAN 02/18/2016 Narrative Resulting Agency Comment [facility] [address] [facility] ??[facility] [phone] Jean Joy MD LAB - HEMATOLOGY ORD ERABLES [facility] ACCOUNT BILL [address] [place] [address] * CULTURE STREP B (02/18/2016 10:58 AM COLLECTION DEVELOPMENT LIBRARIAN) Strep Group B Culture Negative Negative [facility] ACCOUNT BILL Comment: Centers for Disease Control and Prevention (CDC) and [place] [employer]etric[employer] Gynec[employer] (ACOG) guidelines [...] MISCELLANEOUS SAMPLES / Unknown 02/18/2016 10:58 AM COLLECTION DEVELOPMENT LIBRARIAN 02/18/2016 Narrative Resulting Agency Comment [facility] [address] ??[facility] [phone] Jean Joy MD LAB - MICROBIOLOGY O RDERABLES [facility] ACCOUNT BILL [address] [place] [address] documented in this encounter Visit Diagnoses Diagnosis care, subsequent , third trimester (HCC)- Primary Elevated blood pressure Elevated blood pressure reading without diagnosis of hypertension documented in this encounter Care Teams Real Estate Services Administrator Relationship Specialty Start Date End Date Jean Joy MD PCP - OBGYN 12/27/07 Yvan Booth MD [address] [place] [address] PCP - General 11/04/09 01/04/23 documented as of this encounter
--- OUTSIDE RECORDS SUMMARY | 2024-03-19 20:48 | XMS_ITS | Encounter Summary ---
Author Organization [facility] Address [address] [place] [address] Care Team Providers Care Enroller Name Role Phone Jean Joy MD Unavailable [phone] Yvan Booth MD Primary Care Provider [phone] Encounter Details Date Type Department Care Team (Late st Contact Info) Description 11/04/2009 1:46 PM CDT - 11/04/2009 11:59 PM CDT Hospital Encounter [facility] [address] [place] [id number] [place] [address] [place] [id number] Laboratory Discharge Disposition: Home or Self Care Social History Tobacco Use Types Packs/Day Years Used Date Smoking Tobacco: Never Assessed Sex and Gender Information Value Date Recorded Sex Assigned at Not on file Gender Identity Not on file Sexual Orientation Not on file documented as of this encounter Medications at Time of Discharge Medication Sig Dispensed Refills Start Date End Date levonorgestrel-ethinyl estradiol (ALESSE; LEVLITE; AVIANE; LUTERA; LESSINA; SRONYX) 0.1-20 MG-MCG tablet Take 1 Tab by mouth daily. 1 11 12/18/2008 11/24/2009 documented as of this encounter Miscellaneous Notes * Miscellaneous Scans - Document, Scanned - 12/09/2009 5:55 PM CDT documented in this encounter Plan of Treatment Not on file documented as of this encounter Procedures Procedure Name Priority Date/Time Associated Diagnosis Comments CBC W MANUAL DIFFERENTIAL Routine 11/04/2009 2:05 PM CDT COMPREHENSIVE METABOLIC PANEL Routine 11/04/2009 2:05 PM CDT TSH Routine 11/04/2009 2:05 PM CDT T4 FREE Routine 11/04/2009 2:05 PM CDT LIPID PROFILE Routine 11/04/2009 2:05 PM CDT documented in this encounter Results * (ABNORMAL) COMPREHENSIVE METABOLIC PANEL (11/04/2009 2:05 PM CDT) Sodium 141 137 - 145 mmol/L [facility] Potassium 4.4 3.5 - 5.1 mmol/L [facility] Chloride 105 98 - 107 mmol/L [facility] CO2 22.7 22 - 30 mmol/L [facility] Glucose 128(H) 70 - 106 mg/dl [facility] BUN 10.6 7 - 17 mg/dl [facility] Calcium 9.3 8.4 - 10.2 mg/dl [facility] Bilirubin Total 0.2 0.2 - 1.3 mg/dl [facility] Protein Total 8.0 6.3 - 8.2 gm/dl [facility] Albumin 4.6 3.5 - 5.0 gm/dl [facility] ALT 14 9 - 52 Units/L [facility] AST 20 14 - 36 Units/L [facility] Alkaline Phosphatase 55 38 - 126 Units/L [facility] Creatinine 0.84 0.59 - 1.06 mg/dl [facility] BLOOD SPECIMEN / Unknown 11/04/2009 2:05 PM CDT 11/04/2009 2:09 PM CDT Yvan Booth MD LAB - CHEMISTRY [place] BLACKMAN [facility] Organization Address City/State/ZIP Co de Phone Number [facility] [address] [place] [address] * CBC W MANUAL DIFFERENTIAL (11/04/2009 2:05 PM CDT) Pathologist [facility] WBC 8.10 4.5 - 11.0 K/cumm [facility] RBC 4.70 4.00 - 5.20 mill/cumm [facility] Hemoglobin 14.8 12.0 - 16.0 gm/dl [facility] Hematocrit 42.1 36.0 - 46.0 % [facility] MCV 89.6 80.0 - 100.0 cu microns [facility] MCH 31.5 26.0 - 34.0 uug [facility] MCHC 35.2 31.0 - 37.0 % [facility] RDW 13.2 % [facility] MPV 11.2 fl [facility] Platelet Count 252 100 - 400 K/cumm [facility] Granulocytes % 59.5 43 - 70 % [facility] Lymphocytes % 31.2 22 - 41 % [facility] Monocytes % 7.5 2 - 13 % [facility] Eosinophils % 1.4 0 - 6 % [facility] Basophils % 0.4 0 - 1 % [facility] Comment Manual Diff Automated Diff Performed [facility] BLOOD SPECIMEN / Unknown 11/04/2009 2:05 PM CDT 11/04/2009 2:09 PM CDT Yvan Booth MD LAB - HEMATOLOGY ORD ERABLES Performing Organization Address City/[facility] Co de Phone Number [facility] [address] [place] [address] * TSH (11/04/2009 2:05 PM CDT) Pathologist [facility] TSH 2.637 0.490 - 4.670 mcIU/mL [facility] BLOOD SPECIMEN / Unknown 11/04/2009 2:05 PM CDT 11/04/2009 2:09 PM CDT Yvan Booth MD LAB - CHEMISTRY ORDE RABKAREN Performing Organization Address City/[facility] Co de Phone Number [facility] [address] [place] [address] * T4 FREE (11/04/2009 2:05 PM CDT) Pathologist [facility] T4 Free 0.8 0.71 - 1.85 ng/dl [facility] BLOOD SPECIMEN / Unknown 11/04/2009 2:05 PM CDT 11/04/2009 2:09 PM CDT Yvan Booth MD LAB - CHEMISTRY [place] ANNEMARIEKAREN Performing Organization Address [facility] Co de Phone Number [facility] [address] [place] [address] * (ABNORMAL) LIPID PROFILE (11/04/2009 2:05 PM CDT) Cholesterol 197 < 200 mg/dl mg/dl [facility] Triglycerides 299(H) < 150 mg/dl mg/dl [facility] HDL Cholesterol 45 > 40 mg/dl mg/dl [facility] LDL Calculated 92 < 100 mg/dl mg/dl [facility] Chol HDL Ratio 4.4 [facility] Comment Lipid Reference Ranges provided by [employer]. [facility] BLOOD SPECIMEN / Unknown 11/04/2009 2:05 PM CDT 11/04/2009 2:09 PM CDT Yvan Booth MD LAB - CHEMISTRY BIB[place] ANNEMARIEKAREN Performing Organization Address [facility] Co de Phone Number [facility] [address] [place] [address] documented in this encounter Visit Diagnoses Not on filedocumented in this encounter Care Teams Enroller Relationship Specialty Start Date End Date Jean Joy MD PCP - OBGYN 12/27/07 Yvan Booth MD [address] [place] [phone] PCP - General 11/04/09 01/04/23 documented as of this encounter
--- OUTSIDE RECORDS SUMMARY | 2024-03-19 20:48 | XMS_ITS | Encounter Summary ---
Author Organization [facility] Address [address] [facility] [place] [address] Care Team Providers Care Machinist Supervisor Name Role Phone Jean Thao MD Unavailable [phone] Yvan Booth MD Primary Care Provider [phone] Reason for Visit * Reason Comments Scheduled C Section * Auth/Cert Specialty Diagnoses / Procedures Referred By Contac t Referred To Contact Procedures SECTION REPEAT Referral ID Status Reason Start Date Expiration Date Visits Re quested Visits Authorized [id number] 1 1 Encounter Details Date Type Department Care Team (Latest Contact Info) Description 03/01/2016 7:26 AM BILLING SPECIALIST - 03/04/2016 11:38 AM [facility] Hospital Encounter [facility] [address] [place] [address] Jean Thao MD [address] [place] [address] Obstetrics Discharge Disposition: Home or Self Care Social [...] Comments Blood Pressure 157/99 03/04/2016 9:10 AM BILLING SPECIALIST Pulse 100 03/04/2016 9:10 AM BILLING SPECIALIST Temperature 37 ??C (98.6 ??F) 03/04/2016 9:10 AM BILLING SPECIALIST Respiratory Rate 16 03/04/2016 9:10 AM BILLING SPECIALIST Oxygen Saturation 97% 03/04/2016 9:10 AM BILLING SPECIALIST Inhaled Oxygen Concentration - - Weight 94.8 kg (209 lb) 03/01/2016 7:35 AM BILLING SPECIALIST Height 162.6 cm (5' 4 ) 03/01/2016 7:35 AM BILLING SPECIALIST Body Mass Index 35.87 03/01/2016 7:35 AM BILLING SPECIALIST documented in this encounter Functional Status Functional [...] 147/83 157/99 Pulse: 86 100 Resp: 16 Temp: 98 ??F 98 ??F 98 [...] Comments Your discharge diagnosis is Recent childbirth [[id number]] No special diet needed Resume your normal [...] redness. Discharge to home. Cassidy Camacho MD ING SPECIALIST documented in this encounter Discharge Instructions * Discharge Instructions* Diamond Basilio RN - 03/04/2016 10:47 AM BILLING SPECIALIST DELIVERED MOTHER DISCHARGE INSTRUCTIONS Refer to the Booklet given during your stay for more information. Please contact your music ministries director for the followin. Any burning or itching [...] example: your cell phone and cell phone forest examiner. PLEASE REMEMBER: 1. Always place your on his/her back to sleep. 2. Always use a car safety seat when transporting your child. ING SPECIALIST documented in this encounter Medications at Time [...] of this encounter Progress Notes * Yolie Zhao RD/LD - 03/03/2016 5:23 PM CST CLINICAL NUTRITION [...] with breast feeding status. TARI Moseley 03/03/2016 ING SPECIALIST * Azalia Jenkins MD - 03/03/2016 10:58 AM CST OB Progress Note--c/s 03/03/2016 10:58 AM Consuelo Darby Subjective: Patient is feeling well, pain adequately [...] Plan: Continue routine care Azalia Jenkins MD ING SPECIALIST * Jean Thao MD - 03/02/2016 7:25 AM CST Progress Note Subjective: day #1 from a . Consuelo Darby is without complaint. Flatus has been passed. She is tolerating a regular diet. Baby is doing well without problems Objective: Temp (36hrs) Max:98.4 ??F Vitals: 03/01/16 1446 03/01/16 1950 03/02/16 0040 03/02/16 0450 BP: 128/77 126/68 117/76 130/72 Pulse: 83 Resp: 16 16 16 16 Temp: 97.3 ??F 97.9 ??F 98.1 ??F [...] and exam. Expected course. Plan: Routine care ING SPECIALIST * Bess Gillis RN - 03/01/2016 11:47 [...] procedure Outcome: Goal Met Date Met: 03/01/16 ING SPECIALIST * Jean Thao MD - 03/01/2016 10:21 AM CST Post op Note Pre op Dx: 37.5 weeks, GHTN, previous C/S Post op Dx: same Op : C/S, Anes:spinal EBL: 700 cc Findings: viable female, good 's Pt stable in OBRR ING SPECIALIST * iNcanor Avitia Jr., MD - 03/01/2016 10:13 AM CST Consuelo Darby Repeat I was requested to assist with the patient's by the attending physician. Nicanor Avitia Jr., MD ING SPECIALIST documented in this encounter H&P Notes * Jean Thao MD - 02/29/2016 2:10 PM CST Private OB History and Physical - C/S Consuelo Darby [id number] 02/29/2016 Subjective: Consuelo Darby is a 35 [...] will proceed with delivery. Jean Thao MD ING SPECIALIST documented in this encounter Nursing Notes * Uzma Zhang, RN - 03/03/2016 11:38 AM CST This note was copied from a baby's chart. follow-up: educational packet completed. Mom states she thinks her milk is coming in. Reviewed prevention and treatment of engorgement. Encouraged mom to feed q 2-21/2 hours today, due to weight loss. Encouraged mom to call for latch assessment at next feeding. Mom did not call. ING SPECIALIST * Uzma Zhang RN - 03/01/2016 1:48 PM CST This note was copied from a baby's chart. Consult:General information discussed and questions answered. Latches easily with strong nutritive sucks and occasional swallows observed. Pointed out the indications of correct position, latch and suck to mom as infant nursed. Encouraged mom to call for further assistance as needed otherwise to follow up in am. ING SPECIALIST documented in this encounter OR Notes * Operative - Jean Thao MD - 03/01/2016 6:15 PM CST [facility] OPERATIVE REPORT PATIENT NAME: CONSUELO DARBY MR#: [id number] ROOM #: CSN: [id number] : 1980 ADMIT: 03/01/2016 SURGEON: Jean Thao M.D. SURGERY DATE: 03/01/2016 SURGEON: Jean Thao M.D. ELECTRONIC WARFARE OFFICER: SOCIAL SCIENCES DEPARTMENT CHAIR: PREOPERATIVE DIAGNOSES: 37 weeks 5 days gestation, [...] the incision that was controlled using a tyjqwl-[id number] suture of the 0 Monocryl. The pelvis [...] in good condition. Jean Thao M.D. CLARISSA/ISABELLA /[id number] OPERATIVE REPORT - ING SPECIALIST documented in this encounter Miscellaneous Notes * Delivery Summary - Consuelo Bay RN - 03/01/2016 10:45 AM CST DELIVERY SUMMARY Mother's Post Delivery /Para: OB History Para Term AB TAB SAB Ectopic Multiple Living 2 2 1 1 0 1 Estimated Date of Delivery: 03/17/16 Temp (48hrs) Max:97.9 ??F Follow- Up Care Provider:: Dr Martínez Estimated Blood Loss 03/01/16 0939 - 03/01/16 1046 Mom's I/O Activity Blood Loss Measured Hospital Encounter 765 ml Total 765 Mother's Information Patient Information Patient Name Sex Consuelo Darby ([id number]) Female 1980 OB History Para Term AB SAB TAB Ectopic Multiple Living 2 2 1 1 0 1 # Outcome Date GA Labor/2nd Weight Sex Delivery Anes PTL Lv Name A1 A5 Location Delivering Clinician 2 Term 03/01/16 37w5d 2778 g (6 lb 2 oz) F , S Spinal Y MEHNAZBABY GIRL CONSUELO 8 [address] [facility] Jean Thao MD 1 09/23/07 36w0d F P DJB Comments: Severe PIH Transcribed Labs 03/01/16 0746 RH (Manually Reproduced) Positive Blood Type (Manually Reproduced) B Syphilis Serology (Manually Reproduced) Negative HIV (Manually Reproduced) Negative Hepatitis B Surface Antigen (Manually Reproduced) Negative Rubella Status ( Manually Reproduced) Immune Beta Strep Culture (Manually Reproduced) Negative Mehnaz Baby Gil Cordero [[id number]] Patient Information Patient Name Sex Satinder Darby ([id number]) Female 03/01/2016 Procedures Procedure Comments: none List [...] X-Ray? MD Notif? Counted By Verified By Instruments/Willow/Sharps/Sponges Initial / Baseline Yes No Yes Clari Hernandes Buchanan Ashley, RN 0931 Willow/Sharps/Sponges Next Yes No Yes Clari Hernandes Jennifer M RN 0951 Instruments/Willow/Sharps/Sponges Closure of a Cavity within a Cavity Yes No Yes Clari Hernandes Jennifer M RN 1005 Willow/Sharps/Sponges Skin Closure / End of Procedure Yes [...] None Baby Vital Statistics Date: 03/01/16 Time: 0945 Weight: 2778 g Length: 18 Head Circum.: 12 1 Minute 1 Minute: Skin Color: 0 Grimace: 2 Breathin Heart Rate: 2 Muscle Tone: 2 Total: 8 5 Minute 5 Minute: Skin Color: 1 Grimace: 2 Breathin Heart Rate: 2 Muscle Tone: 2 Total: 9 Stabilization Equipment Checked by: A Juleet RN Vigorous at ? (Heart rate greater than 100, normal respirations and normal muscle tone): Yes Suction Method: Bulb, Suction Trap Secretions (Amount in Comment): Clear (Comment: 8cc) Requires more than warming, stimulation, and suction?: No Intubation Procedure: Thermoregulation Support: Cap, Overhead Warmer, Warm Blankets Description of Baby: Viable female. Cord/Gases No data filed Feeding/Elimination Mother's Feeding Choice for this Stay: Human Milk Voided in Delivery Room?: No Stooled in Delivery Room?: Yes Delivering Clinician Delivering Clinician: JEAN THAO History Information Length: 18 (45.7 cm) Weight: 2778 g (6 lb 2 oz) Head Circ: 12 (30.5 cm) Gestational Age: 37 5/7 weeks Delivery Method: , Scheduled APGARs 1 Minute: 8 5 Minute: 9 ING SPECIALIST documented in this encounter Plan of Treatment Not on file documented as of this encounter Procedures Procedure Name Priority Date/Time Associated Diagnosis Comments HGB HCT PANEL AM Draw 03/02/2016 6:21 AM BILLING SPECIALIST BLOOD TYPE VERIFICATION Routine 03/01/2016 9:25 AM BILLING SPECIALIST SECTION (REPEAT) 03/01/2016 9:15 AM BILLING SPECIALIST TYPE + SCREEN PANEL Routine 03/01/2016 8 :17 AM BILLING SPECIALIST CBC W AUTO DIFFERENTIAL STAT 03/01/2016 8:17 AM BILLING SPECIALIST PIH ( induced hypertension), third trimester (HCC) COMPREHENSIVE METABOLIC PANEL AM Draw 03/01/2016 8:17 AM BILLING SPECIALIST PIH ( induced hypertension), third trimester (HCC) documented in this encounter Results * (ABNORMAL) HGB HCT PANEL (03/02/2016 6:21 AM BILLING SPECIALIST) Pathologist [facility] Hemoglobin 10.3(L) 12.0 - 15.6 gm/dL 03/02/2016 6:30 AM [facility] Hematocrit 30.9(L) 35.9 - 45.5 % 03/02/2016 6:30 AM [facility] Blood BLOOD SPECIMEN / Unknown Collection / Unknown 03/02/2016 6:21 AM BILLING SPECIALIST 03/02/2016 6:25 AM BILLING SPECIALIST Jean Thao MD LAB - HEMATOLOGY ORD ERABLES [facility] [address] [place] [address] * BLOOD TYPE VERIFICATION (03/01/2016 9:25 AM BILLING SPECIALIST) Pathologist [facility] ABO B 03/01/2016 9:57 AM [facility] Rh Type Positive 03/01/2016 9:57 AM [facility] Blood Bank BLOOD SPECIMEN / Unknown Venipuncture / Unknown 03/01/2016 9:25 AM BILLING SPECIALIST 03/01/2016 9:32 AM BILLING SPECIALIST Jean Thao MD LAB - BLOOD BANK ORD ERABLES [facility] [address] [phone] * (ABNORMAL) COMPREHENSIVE METABOLIC PANEL (03/01/2016 8:17 AM BILLING SPECIALIST) Pathologist [facility] Glucose 83 74 - 106 mg/dL 03/01/2016 8:49 AM [facility] Sodium 141 136 - 145 mmol/L 03/01/2016 8:49 AM [facility] Potassium 3.6 3.5 - 5.1 mmol/L 03/01/2016 8:49 AM [facility] Chloride 110(H) 98 - 107 mmol/L 03/01/2016 8:49 AM [facility] CO2 21(L) 22 - 31 mmol/L 03/01/2016 8:49 AM [facility] Calcium 8.1(L) 8.5 - 10.1 mg/dL 03/01/2016 8:49 AM [facility] Anion Gap 10 8 - 16 mmol/L 03/01/2016 8:49 AM [facility] BUN 9 7 - 21 mg/dL 03/01/2016 8:49 AM [facility] Creatinine 0.60 0.50 - 1.30 mg/dL 03/01/2016 8:49 AM [facility] Alkaline Phosphatase 111 38 - 126 U/L 03/01/2016 8:49 AM [facility] ALT 21 13 - 61 U/L 03/01/2016 8:49 AM [facility] AST 25 5 - 40 U/L 03/01/2016 8:49 AM [facility] Protein Total 6.4 6.4 - 8.2 gm/dL 03/01/2016 8:49 AM [facility] Albumin 2.5(L) 3.4 - 5.0 gm/dL 03/01/2016 8:49 AM [facility] Bilirubin Total 0.2 0.2 - 1.0 mg/dL 03/01/2016 8:49 AM [facility] eGFR by MDRD >60 >60 mL/min/1.7 3m2 03/01/2016 8:49 AM [facility] eGFR by MDRD >60 >60 mL/min/1.7 3m2 03/01/2016 8:49 AM [facility] Blood BLOOD SPECIMEN / Unknown Venipuncture / Unknown 03/01/2016 8:17 AM [facility] 03/01/2016 8:30 AM [facility] Jean Thao MD LAB - CHEMISTRY BIBIANA BLACKMAN [facility] Organization Address City/State/ZIP Co de Phone Number [facility] [address] [place] [address] * (ABNORMAL) CBC W AUTO DIFFERENTIAL (03/01/2016 8:17 AM [facility]) WBC 9.2 4.4 - 10.7 x10E9/L 03/01/2016 8:33 AM [facility] WBC Corrected x10E9/L 03/01/2016 8:33 AM [facility] RBC 3.98 3.80 - 5.20 x10E12/L 03/01/2016 8:33 AM [facility] Hemoglobin 12.9 12.0 - 15.6 gm/dL 03/01/2016 8:33 AM [facility] Hematocrit 37.0 35.9 - 45.5 % 03/01/2016 8:33 AM [facility] MCV 93.0 80.7 - 98.3 fl 03/01/2016 8:33 AM [facility] MCH 32.4 26.7 - 34.0 pg 03/01/2016 8:33 AM [facility] MCHC 34.9 30.8 - 35.9 gm/dL 03/01/2016 8:33 AM [facility] Platelet Count 243 153 - 416 x10E9/L 03/01/2016 8:33 AM [facility] RDW-CV 14.6 12.1 - 14.9 % 03/01/2016 8:33 AM [facility] MPV 11.9 9.4 - 12.9 fl 03/01/2016 8:33 AM [facility] Neutrophils % 71.9 44.0 - 73.0 % 03/01/2016 8:33 AM [facility] Lymphocytes % 19.2(L) 20.0 - 43.0 % 03/01/2016 8:33 AM [facility] Monocytes % 8.0 5.0 - 13.0 % 03/01/2016 8:33 AM [facility] Eosinophils % 0.2 0.0 - 6.0 % 03/01/2016 8:33 AM [facility] Basophils % 0.2 0.0 - 2.0 % 03/01/2016 8:33 AM [facility] Immature Granulocytes 0.5 0 - 1 % 03/01/2016 8:33 AM [facility] Neutrophil Absolute 6.58 2.01 - 7.14 x10E9/L 03/01/2016 8:33 AM [facility] Lymphocytes Absolute 1.76 1.07 - 3.94 x10E9/L 03/01/2016 8:33 AM [facility] Monocytes Absolute 0.73 0.26 - 1.07 x10E9/L 03/01/2016 8:33 AM [facility] Eosinophils Absolute 0.02 0 - 0.47 x10E9/L 03/01/2016 8:33 AM [facility] Basophils Absolute 0.02 0 - 0.08 x10E9/L 03/01/2016 8:33 AM [facility] Immature Granulocytes Absolute 0.05 0.00 - 0.06 x10E9/L 03/01/2016 8:33 AM [facility] nRBC Auto 0 /100 WBC 03/01/2016 8:33 AM [facility] Blood BLOOD SPECIMEN / Unknown Venipuncture / Unknown 03/01/2016 8:17 AM BILLING SPECIALIST 03/01/2016 8:30 AM BILLING SPECIALIST Jean Thao MD LAB - HEMATOLOGY ORD ERABLES [facility] [address] [place] [address] * TYPE + SCREEN PANEL (03/01/2016 8:17 AM [facility]) ABO B 03/01/2016 9:10 AM [facility] Rh Type Positive 03/01/2016 9:10 AM [facility] Antibody Screen Negative 03/01/2016 9:10 AM [facility] Comment:History check perfor med. Retype required. Blood Bank BLOOD SPECIMEN / Unknown Venipuncture / Unknown 03/01/2016 8:17 AM BILLING SPECIALIST 03/01/2016 8:30 AM BILLING SPECIALIST Jean Thao MD LAB - BLOOD BANK ORD ERABLES [facility] [id number] [place] [address] documented in this encounter Visit Diagnoses Diagnosis PIH ( induced hypertension), third trimester (HCC)- Primary Maternal care for scar from previous delivery, unspecified prior delivery type (HCC) documented in this encounter Administered Medications Inactive Administered Medications - up to 3 most recent administrations Medication Order MAR Action Action Date Dose Rate Site 0.9% NaCl injection 3 mL 3 mL, Intracatheter, EVERY 8 HOURS, First dose on Sun03/01/16 at 1400, Until Discontinued, $ Given 03/02/2016 7:05 AM BILLING SPECIALIST 3 mL ceFAZolin (ANCEF) 2,000 mg in 50 ml IVPB 2,000 mg (2 g), at 100 mL/hr, Intravenous, INTRA-OP ONCE, 1 dose, On Sun03/01/16 at 0745, Initiate within 30 minutes prior to surgical incision., Intra-op $ Given 03/01/2016 9:17 AM BILLING SPECIALIST 2,000 mg 100 mL/hr ibuprofen (MOTRIN) tablet 600 mg 600 mg, Oral, EVERY 6 HOURS, First dose (after last modification) on Katy 03/02/16 at 1200, Until Discontinued, Maximum allowable amount = 3200 mg / 24 hours., $ Given 03/04/2016 5:29 AM BILLING SPECIALIST 600 mg $ Given 03/03/2016 11:39 PM BILLING SPECIALIST 600 mg $ Given 03/03/2016 5:59 PM BILLING SPECIALIST 600 mg ketorolac (TORADOL) injection 30 mg 30 mg, Intravenous, EVERY 6 HOURS, 4 doses, First dose on Sun03/01/16 at 1200, Last dose on Katy 03/02/16 at 0600, For pain and discomfort. $ Given 03/02/2016 7:05 AM BILLING SPECIALIST 30 mg $ Given 03/02/2016 12:39 AM BILLING SPECIALIST 30 mg $ Given 03/01/2016 6:39 PM BILLING SPECIALIST 30 mg lactated ringers infusion at 125 mL/hr, Intravenous, PRE-OP CONTINUOUS, Starting on Sun03/01/16 at 0800, Until Sun03/01/16 at 1034, Start IV with 18 gauge angiocath., Pre-op $ New Bag/Syringe 03/01/2016 9:37 AM BILLING SPECIALIST $ New Bag/Syringe 03/01/2016 8:36 AM BILLING SPECIALIST 125 mL /hr $ New Bag/Syringe 03/01/2016 7:51 AM BILLING SPECIALIST 125 mL /hr lactated ringers infusion at 125 mL/hr, Intravenous, CONTINUOUS, Starting on Sun03/01/16 at 1100, Until Katy 03/02/16 at 1256, May discontinue IV when taking PO and afebrile., $ New Bag/Syringe 03/01/2016 9:56 PM BILLING SPECIALIST 125 mL/hr $ New Bag/Syringe 03/01/2016 12:41 PM BILLING SPECIALIST 125 m L/hr lanolin (LANOLIN) ointment Topical, PRN, Sore or cracked nipples., Starting on Sun03/01/16 at 1023, Until 03/04/16 at 1239, Apply purified Lanolin to sore or cracked nipples, if needed. May keep at bedside., oxyCODONE-acetaminophen (PERCOCET) 10-325 MG tablet 1 Tab 1 tablet, Oral, EVERY 4 HOURS PRN, Severe Pain, Starting on Sun03/01/16 at 1200, Until 03/04/16 at 1239, $ Given 03/02/2016 8:31 PM BILLING SPECIALIST 1 tab let $ Given 03/02/2016 3:26 PM BILLING SPECIALIST 1 tablet $ Given 03/02/2016 9:46 AM BILLING SPECIALIST 1 tablet oxyCODONE-acetaminophen (PERCOCET) 5-325 MG tablet 1 Tab 1 tablet, Oral, EVERY 4 HOURS PRN, Moderate Pain, Starting on Sun03/01/16 at 1200, Until 03/04/16 at 1239, $ Given 03/03/2016 11:29 PM BILLING SPECIALIST 1 tablet $ Given 03/03/2016 12:13 PM BILLING SPECIALIST 1 tablet documented in this encounter Active and Recently Administered Medications Times are shown in BILLING SPECIALIST. Scheduled Medication Order 03/02/2016 03/03/2016 03/04/2016 0.9% [...] 0029 ($ Given - Provider: Mer Toribio, AMBROSE)0633 ($ Given - Provider: Mer Toribio, AMBROSE)1213 ($ Given - Provider: Landy Sun RN)1759 ($ Given - Provider: Landy Sun RN)2339 ($ Given - Provider: Abby Francois, RN) [...] Sun RN)2031 ($ Given - Provider: Mer Toribio RN) oxyCODONE-acetaminophen (PERCOCET) 5-325 MG tablet 1 Tab 1 tablet, Oral, EVERY 4 HOURS PRN, Moderate Pain, Starting on Sun03/01/16 at 1200, Until 03/04/16 at 1239, 1213 ($ Given - Provider: Landy Sun RN)2329 ($ Given - Provider: Abby Francois, RN) documented in this encounter Care Teams Machinist Supervisor Relationship Specialty Start Date End Date Jean Thao MD PCP - OBGYN 12/27/07 Yvan Booth MD [address] [place] [address] PCP - General 11/04/09 01/04/23 documented as of this encounter
--- OUTSIDE RECORDS SUMMARY | 2024-03-19 20:48 | XMS_ITS | Encounter Summary ---
Author Organization [facility] Address [address] [facility] [place] [address] Care Team Providers Care Customer Sales Distributor Name Role Phone Jean Joy MD Unavailable [phone] Yvan Booth MD Primary Care Provider [phone] Reason for Visit * Reason Comments Routine Visit Encounter Details Date Type Department Care Team (Late st Contact Info) Description 10/05/2015 11:30 AM CDT visit [facility] Medical [facility] - MILL PLATFORM SUPERVISOR [address] [facility] [address] [place] [address] Jean Joy MD [address] [facility] [place] [address] [place]: 16w4d Social History Tobacco Use Types Packs/Day Years [...] Reading Time Taken Comments Blood Pressure 112/72 10/05/2015 11:40 AM CDT Pulse - - Temperature - - Respiratory Rate - - Oxygen Saturation - - Inhaled Oxygen Concentration - - Weight 80.3 kg (177 lb) 10/05/2015 11:40 AM CDT Height 162.6 cm (5' 4 ) 10/05/2015 11:40 AM CDT Body Mass Index 30.38 10/05/2015 11:40 AM CDT documented in this encounter Progress Notes * Jean Joy MD - 10/05/2015 11:53 AM CDT No problems or c/o Declines Quad screen US next documented in this encounter Plan of Treatment Not on file documented as of this encounter Visit Diagnoses Diagnosis care, subsequent , second trimester (HCC)- Primary documented in this encounter Care Teams Customer Sales Distributor Relationship Specialty Start Date End Date Jean Joy MD PCP - OBGYN 12/27/07 Yvan Booth MD [address] [place] [address] PCP - General 11/04/09 01/04/23 documented as of this encounter
--- OUTSIDE RECORDS SUMMARY | 2024-03-19 20:48 | XMS_ITS | Encounter Summary ---
Author Organization [facility] Address [address] [place] [address] Care Team Providers Care Data Report Analyst Name Role Phone Jean Joy MD Unavailable [phone] Yvan Booth MD Primary Care Provider [phone] Encounter Details Date Type Department Care Team (Late st Contact Info) Description 02/13/2012 Orders Only [facility] - [address] [place], [place] [id number] Sathya Foster MD [facility] [place] [id number] Bacterial overgrowth syndrome Social History Tobacco Use Types Packs/Day Years Used Date Smoking Tobacco: Every Day Cigarettes Alcohol Use Standard Drinks/Week Comments Yes 0 (1 standard drink = 0.6 oz pur e alcohol) Occasional Sex and Gender Information Value Date Recorded Sex Assigned at Not on file Gender Identity Not on file Sexual Orientation Not on file documented as of this encounter Progress Notes * Ashleigh Gonzalez - 02/13/2012 4:44 PM CST Pt called to give update, she is not doing well and the Levsin is not helping. Pt to try SIBO tx p/Dr. Foster. RX called into pharm pt will call with update after finishing tx. ER ELECTRONIC SCALE documented in this encounter Plan of Treatment Not on file documented as of this encounter Visit Diagnoses Diagnosis Bacterial overgrowth syndrome- Primary Other specified disorder of intestines documented in this encounter Care Teams Data Report Analyst Relationship Specialty Start Date End Date Jean Joy MD PCP - OBGYN 12/27/07 Yvan Booth MD [address] [place] [address] PCP - General 11/04/09 01/04/23 documented as of this encounter
--- OUTSIDE RECORDS SUMMARY | 2024-03-19 20:48 | XMS_ITS | Encounter Summary ---
Author Organization [facility] Address [address] [facility] [place] [address] Care Team Providers Care Transmissions Systems Operator Name Role Phone Jean Joy MD Unavailable Yvan Booth MD Primary Care Provider [phone] Reason for Visit * Reason Onset Date Comments MEDICATION REFILL 11/24/2009 Encounter Details Date Type Department Care Team (Late st Contact Info) Description 11/24/2009 Refill [facility] Medical [facility] - LINOTYPE MACHINIST [address] [facility] [address] [place] [address] [id number] Jean Joy MD [address] [facility] [address] [place] [address] MEDICATION REFILL Social History Tobacco [...] on filedocumented in this encounter Care Teams Transmissions Systems Operator Relationship Specialty Start Date End Date Jean Joy MD PCP - OBGYN 12/27/07 Yvan Booth MD [address] [place] [address] PCP - General 11/04/09 01/04/23 documented as of this encounter
--- OUTSIDE RECORDS SUMMARY | 2024-03-19 20:48 | XMS_ITS | Encounter Summary ---
Author Organization [facility] Address [address] [facility] [place] [address] Care Team Providers Care Tape Fastener Machine Operator Name Role Phone Jean Joy MD Unavailable [phone] Yvan Booth MD Primary Care Provider [phone] Reason for Visit * Reason Comments Routine Visit Encounter Details Date Type Department Care Team (Late st Contact Info) Description 02/25/2016 3:45 PM SECURED ENTRANCE MONITOR visit [facility] Medical [facility] - SPORTS PHYSICAL THERAPIST [address] [place] [address] Jean Joy MD [address] [facility] [place] [address] GA: [id number] Social History Tobacco Use Types Packs/Day Years [...] Sign Reading Time Taken Comments Blood Pressure 140/90 02/25/2016 3:48 PM SECURED ENTRANCE MONITOR Pulse - - Temperature - - Respiratory Rate - - Oxygen Saturation - - Inhaled Oxygen Concentration - - Weight 96.2 kg (212 lb) 02/25/2016 3:48 PM SECURED ENTRANCE MONITOR Height - - Body Mass Index 36.39 01/21/2016 2:24 PM SECURED ENTRANCE MONITOR documented in this encounter Progress Notes * Jean Joy MD - 02/25/2016 4:22 PM CST No c/o Baby is active Minimal edema Labs normal plt 300k RED ENTRANCE MONITOR documented in this encounter Plan of Treatment Not on file documented as of this encounter Visit Diagnoses Diagnosis care, subsequent , third trimester (HCC)- Primary documented in this encounter Care Teams Tape Fastener Machine Operator Relationship Specialty Start Date End Date Jean Joy MD PCP - OBGYN 12/27/07 Yvan Booth MD [address] [place] [id number] PCP - General 11/04/09 01/04/23 documented as of this encounter
--- OUTSIDE RECORDS SUMMARY | 2024-03-19 20:48 | XMS_ITS | Encounter Summary ---
Author Organization [facility] Address [address] [facility] [place] [address] Care Team Providers Care Washer Operator Name Role Phone Jean Joy MD Unavailable [phone] Yvan Booth MD Primary Care Provider [phone] Reason for Visit * Auth/Cert Specialty Diagnoses / Procedures Referred By Jimena t Referred To Contact Procedures SECTION REPEAT Referral ID Status Reason Start Date Expiration Date Visits Re quested Visits Authorized [id number] 1 1 Encounter Details Date Type Department Care Team (Late st Contact Info) Description 03/01/2016 9:21 AM SVP OPERATIONS Anesthesia Event [facility] [address] [place], [place] [id number] Dangelo Vance MD [address] [facility] [address] [place] [address] Miranda Reed, COMPUTERIZED TABLE CUTTER-RANGELAND MANAGEMENT SPECIALIST [address] [facility] [place] [address] Anesthesia Record Procedure Summary Procedure Name Responsible Anesthesiologist Anesthesia Start Time Anesthesia Stop Time SECTION REPEAT (Abdomen) Dangelo Vance MD 03/01/16 0921 03/01/16 1033 Events Date Time Event Comment 03/01/2016 0909 0921 An Start 0921 An Start Data 0923 PT Reassessment Patient and Vital Signs reassessed prior to induction. 0923 Time Out Anesthesia part icipated in timeout at the time documented in the record by nursing 0925 Spinal Completed 0938 Time Out Anesthesia part icipated in timeout at the time documented in the record by nursing 0939 an gisselle now incision 0945 Baby Delivered 1033 an stop data 1033 Elect Sign The providers l isted as staff are the responsible providers for the case. 1033 Handoff Checklist follo wed: 1. Identification of patient 2. Identification of responsible nurse 3. Discussion of pertinent medical history 4. Discussion of surgical/procedure course 5. Intraoperative anesthetic management and concerns 6. Expectations/plans for the early post-procedure period 7. Opportunity for questions and acknowledgement of report 1033 An Stop Meds Name Total bupivacaine (spinal) (SENSORCAINE) 0.75% IT injection 13.5 mg fentaNYL (SUBLIMAZE) injection 0.05 mg/m L 10 mcg morphine PF (DURAMORPH) 0.5 mg/mL inject ion 0.25 mg phenylephrine 100 mcg/mL injection 200 m cg ondansetron (ZOFRAN) 2mg/mL injection 4 mg famotidine (PEPCID) 10 mg/mL injection 2 0 mg lactated ringers infusion 1,000 mL oxytocin (PITOCIN) 30 units in 500 ml in fusion (60 maru-units/mL) 0 mL * Agents Name Insp. N2O O2 * Blood No blood administrations on file. Lines, Drains, and Airways Type Details Placement Removal Peripheral IV Date: 03/01/16; Time : 747; Orientation: Left; Placed By: Lizzy Stephenson RN; Tolerance: Well 03/01/16 0748 by Consuelo Bay RN 03/02/16 09 by Landy Sun RN Urethral Catheter 03/01/16; 929; Lizzy stephenson RN; 03/02/16; 0525; NEffingerRN 03/01/16 0930 by Consuelo Bay RN 03/02/16 0525 by Bess Gillis RN RETIRED Procedural Site 03/01/16; 0939; Lower; Abdomen; 03/04/16; 1739 03/01/16 0939 by Consuelo Bay RN 03/04/16 173 by Generic, Auto Release documented in this [...] as of this encounter Progress Notes * Miranda Reed APRN-CRNA - 03/02/2016 6:24 AM CST ANESTHESIA POSTPROCEDURE EVALUATION Consuelo Darby is a 35 y.o. female Temp: 36.9 ??C Pulse: 83 Resp: 16 BP: 130/72 SpO2: 96 % Pain Rating Score #1: 4 Anesthesia Type: spinal Mental status: sufficiently recovered from acute administration of anesthesia to participate in theevaluation. Level of consciousness: awake No numbness, tingling or visual disturbances present. General appearance: well-appearing Respiratory function: natural airway. Cardiac: stable Pain: comfortable/acceptable PONV: None Postop hydration: adequate. Patient may be released from anesthesia care. Perioperative Complications: No value filed. ASA/AQI Tracking Events: No value filed. OPERATIONS documented in this encounter Procedure Notes * Miranda Reed APRN-CRNA - 03/01/2016 9:32 AM CSTAssociated Order(s): NEURAXIAL BLOCK NEURAXIAL BLOCK Patient Location: OB Pre Procedure Indication: surgical anesthesia Anticoagulation /Antithrombosis Status Confirmed: Yes Preanesthetic Checklist: patient identified, IV checked, site marked, risks and benefits discussed,surgical consent verified, monitors and equipment checked, pre-op evaluation done, timeout performed, informed consent obtained and questions answered / anesthesia plan accepted Monitors: Pulse Ox and BP Patient Condition: awake Patient Position: sitting Procedure Block Performed: spinal Prep: Duraprep Sterile Field: sterile gloves, sterile field established, cap/hat and mask Approach: midline Skin Numbed with: lidocaine 1% Spinal Needle Type: Sy Needle Gauge: 25 G Placement Site: L4-5 Number of Attempts: 1 CSF: free flow Local Anesthetic: bupivacaine 0.5% PF 13.5 mg Spinal Additive: PF morphine 250 mcg fentanyl 10 mcg Events CSF return injection not painful no paresthesia no other event Degree of Difficulty: none Position Post Procedure: supine and left uterine displacement Vital signs monitored and stable throughout. See Anesthesia Intraop record for details. Block Performed by: Amy Reed OPERATIONS documented in this encounter Consult Notes * Miranda Reed APRN-CRNA - 03/01/2016 9:08 AM CST Pre-anesthesia Evaluation Procedure(s): SECTION REPEAT (Abdomen) Diagnosis: There are no admission diagnoses documented for this encoun* Vital Signs: Temp: 36.6 ??C (03/01 0735) Pulse: 90 (03/01 0735) Resp: 16 (03/01 0735) BP: 140/78 (03/01 0901) SpO2: 97 % (03/01 0831) BMI: Estimated body mass index is 35.87 kg/(m^2) as calculated from the following: Height as of this encounter: 1.626 m (5' 4 ). Weight as of this encounter: 94.8 kg (209 lb). History: Past Medical History Diagnosis Date ??? Abdominal pain, right upper quadrant ??? GERD (gastroesophageal reflux disease) ??? History of hypertension gestational hypertension Past Surgical History Procedure Laterality Date ??? section ??? Colonoscopy ??? Cholecystectomy, laparoscopic 02/22/2012 N/A; LAPAROSCOPIC CHOLECYSTECTOMY SINGLE INCISION ??? Cholecystectomy reports that she has quit smoking. Her smoking use included Cigarettes. She smoked 0.50 packs per day. She has never used smokeless tobacco. She reports that she does not drink alcohol or use illicitdrugs. Allergies: is allergic to latex. Medications: Home Medications for Outpatients: No current outpatient prescriptions on file. Home Medications for Inpatients: Prescriptions Prior to Admission Medication Sig Dispense Refill ??? MV-Min-Fe Fum-FA-DHA ( 1 PO) Take 1 Tab by mouth ??? raNITIdine (ZANTAC) 150 MG tablet Take 150 mg by mouth 2 times daily ??? Cetirizine HCl (ZYRTEC PO) Take 10 mg by mouth once daily Inpatient Medications: Current Facility-Administered Medications Medication Dose Route Frequency Provider Last Rate Last Dose ??? lactated ringers infusion Intravenous pre-OP continuous Jean Joy MD 125 mL/hr at 03/01/16 0836 ??? ceFAZolin (ANCEF) 2,000 mg in 50 ml IVPB 2 g Intravenous intra-OP once Jean Joy MD Physical Exam: NPO status: no solids since midnight Oriented to person, place and time Airway: I Neck ROM: full Dental exam findings: normal/ok Pulmonary exam: breath sounds CTA Heart sounds: S1 S2 Review of Systems: Negative for anesthesia complications Positive for gastroesophageal reflux disease Reviewed labs Plan for Anesthesia: Reviewed allergies, history and medications ASA Score: 2. Anesthesia plan: spinal Planned postop destination: OB Anesthesia plan, risks and benefits discussed with patient Anesthesia consent: obtained Plan accepted yes Discussed anesthesia plan with: anesthesiologist and RANGELAND MANAGEMENT SPECIALIST. OPERATIONS documented in this encounter Plan of Treatment Not on file documented as of this encounter Procedures Procedure Name Priority Date/Time Associated Diagnosis Comments NEURAXIAL BLOCK Routine 03/01/2016 9:34 AM SVP OPERATIONS Procedure Note - Miranda Reed APRN-RANGELAND MANAGEMENT SPECIALIST - 03/01/2016 9:32 AM CSTThis note is in progress. NEURAXIAL BLOCK Patient Location: OB Pre Procedure Indication: surgical anesthesia Anticoagulation /Antithrombosis Status Confirmed: Yes Preanesthetic Checklist: patient identified, IV checked, site marked,risks and benefits discussed, surgical consent verified, monitors andequipment checked, pre-op evaluation done, timeout performed, informedconsent obtained and questions answered / anesthesia plan accepted Monitors: Pulse Ox and BP Patient Condition: awake Patient Position: sitting Procedure Block Performed: spinal Prep: Duraprep Sterile Field: sterile gloves, sterile field established, cap/hat andmask Approach: midline Skin Numbed with: lidocaine 1% Spinal Needle Type: Sy Needle Gauge: 25 G Placement Site: L4-5 Number of Attempts: 1 CSF: free flow Local Anesthetic: bupivacaine 0.5% PF 13.5 mg Spinal Additive: PF morphine 250 mcg fentanyl 10 mcg Events CSF return injection not painful no paresthesia no other event Degree of Difficulty: none Position Post Procedure: supine and left uterine displacement Vital signs monitored and stable throughout. See Anesthesia Intraoprecord for details. Block Performed by: Amy Reed documented in this encounter Visit Diagnoses Not on filedocumented in this encounter Administered Medications Inactive Administered Medications - up to 3 most recent administrations Medication Order MAR Action Action Date Dose Rate Site bupivacaine 0.75 % in dextrose (SENSORCAINE) injection PRN, Starting on Sun03/01/16 at 0925, Until Sun03/01/16 at 1033, Anesthesia Intra-op $ Given 03/01/2016 9:25 AM SVP OPERATIONS 13.5 mg famotidine (PEPCID) injection PRN, Heartburn, Starting on Sun03/01/16 at 0912, Until Sun03/01/16 at 1033, Anesthesia Intra-op $ Given 03/01/2016 9:12 AM SVP OPERATIONS 20 mg fentaNYL (PF) (SUBLIMAZE) injection PRN, Starting on Sun03/01/16 at 0925, Until Sun03/01/16 at 1033, Anesthesia Intra-op $ Given 03/01/2016 9:25 AM SVP OPERATIONS 10 mcg lactated ringers infusion at 125 mL/hr, Intravenous, PRE-OP CONTINUOUS, Starting on Sun03/01/16 at 0800, Until Sun03/01/16 at 1034, Start IV with 18 gauge angiocath., Pre-op $ New Bag/Syringe 03/01/2016 9:37 AM SVP OPERATIONS $ New Bag/Syringe 03/01/2016 8:36 AM SVP OPERATIONS 125 mL /hr $ New Bag/Syringe 03/01/2016 7:51 AM SVP OPERATIONS 125 mL /hr morphine PF (DURAMORPH) injection PRN, Starting on Sun03/01/16 at 0925, Until Sun03/01/16 at 1033, Anesthesia Intra-op $ Given 03/01/2016 9:25 AM SVP OPERATIONS 0.25 mg ondansetron (ZOFRAN) injection PRN, Nausea/Vomiting, Starting on Sun03/01/16 at 0912, Until Sun03/01/16 at 1033, Anesthesia Intra-op $ Given 03/01/2016 9:12 AM SVP OPERATIONS 4 mg oxytocin (PITOCIN) 30 units in 500 ml normal saline IV solution CONTINUOUS PRN, Starting on Sun03/01/16 at 0946, Until Sun03/01/16 at 1033, Anesthesia Intra-op $ New Bag/Syringe 03/01/2016 9:46 AM SVP OPERATIONS phenylephrine 100 mcg/ml injection PRN, Starting on Sun03/01/16 at 1002, Until Sun03/01/16 at 1033, Anesthesia Intra-op $ Given 03/01/2016 10:03 AM SVP OPERATIONS 100 mcg $ Given 03/01/2016 10:02 AM SVP OPERATIONS 100 mcg documented in this encounter Care Teams Washer Operator Relationship Specialty Start Date End Date Jean Joy MD PCP - OBGYN 12/27/07 Yvan Booth MD [address] [place] [id number] PCP - General 11/04/09 01/04/23 documented as of this encounter
--- OUTSIDE RECORDS SUMMARY | 2024-03-19 20:48 | XMS_ITS | Encounter Summary ---
Author Organization [facility] Address [address] [facility] [place] [address] Care Team Providers Care Fish Hatchery Laborer Name Role Phone Jean Joy MD Unavailable [phone] Yvan Booth MD Primary Care Provider [phone] Reason for Visit * Reason Comments Tool Room Lathe Operator Routine Exam Encounter Details Date Type Department Care Team (Late st Contact Info) Description 04/09/2015 11:00 AM COLOR TELEVISION CONSOLE MONITOR Office Visit [facility] Medical [facility] - SHIPPING LEAD PERSON [address] [place] [address] Jean Joy MD [address] [facility] [place] [address] Well female exam with routine gynecological exam (Primary Dx) Social History Tobacco Use Types [...] Sign Reading Time Taken Comments Blood Pressure 112/70 04/09/2015 10:50 AM COLOR TELEVISION CONSOLE MONITOR Pulse - - Temperature - - Respiratory Rate - - Oxygen Saturation - - Inhaled Oxygen Concentration - - Weight 76.2 kg (168 lb) 04/09/2015 10:50 AM COLOR TELEVISION CONSOLE MONITOR Height 162.6 cm (5' 4 ) 04/09/2015 10:50 AM COLOR TELEVISION CONSOLE MONITOR Body Mass Index 28.84 04/09/2015 10:50 AM COLOR TELEVISION CONSOLE MONITOR documented in this encounter Progress Notes * Jean Joy MD - 04/09/2015 11:07 AM CST Well Woman Yearly Exam (Premenopausal) HISTORY: Consuelo Darby is a 34 y.o. white female, No LMP recorded. Patient is not currently having periods (Reason: Continuous Control)., here for a Well Woman exam. Patient does not have other gynecological issues or concerns. Last Pap: normal Last mammogram:patient has never had a mammogram Menses: Likes continuous OCP's Contraception: OCP (estrogen/progesterone) History Sexual Activity: History Sexual Activity ??? Sexual Activity: ??? Partners: Male ??? Control/ Protection: Pill Other pertinent MANAGER MALL history: none Other pertinent history: Medical, Surgical, Family, and Social History Reviewed. Allergies reviewed. Review of Systems Pertinent items are noted in HPI EXAMINATION BP 112/70 mmHg Wt 168 lb BMI 28.82 kg/m2 General Appearance: alert, cooperative, no distress [...] indications discussed. STD screening was not indicated. R TELEVISION CONSOLE MONITOR documented in this encounter Plan of Treatment Not on file documented as of this encounter Procedures Procedure Name Priority Date/Time Associated Diagnosis Comments PAP IG LB RFLX HPV HR ASCU RFLX 16,18 Routine 04/09/2015 11:10 AM COLOR TELEVISION CONSOLE MONITOR Well female exam with routine gynecological exam documented in this encounter Results * PAP IG RFLX HPV ASCU RFLX 16/18 (PO REF LAB) (04/09/2015 11:10 AM COLOR TELEVISION CONSOLE MONITOR) Diagnosis [facility] ACCOUNT BILL Comment:NEGATIVE FOR INTRAEP ITHELIAL LESION AND MALIGNANCY. Specimen Adequacy [facility] ACCOUNT BILL Comment: Satisfactory for evaluation. ??Endocervical and/or squamous metaplastic cells (endocervical component) are present. Clinician Provided ICD10 [facility] ACCOUNT BILL Comment:Z01.419 Performed by [facility] ACCOUNT BILL Comment:Jackelyn Echeverria, Cytotec hnologist (ASCP) Comment . [facility] ACCOUNT BILL Note [...] TRACT PREPARED USING PAPANICOLAOU TECHNIQUE / Unknown 04/09/2015 11:10 AM COLOR TELEVISION CONSOLE MONITOR 04/10/2015 4:42 AM COLOR TELEVISION CONSOLE MONITOR Narrative [facility] ACCOUNT BILL - 04/13/2015 1:20 PM COLOR TELEVISION CONSOLE MONITOR No. of containers..01 CYTYC Thin Prep Vial Resulting Agency Comment Myrna Aguero [place] ??Mason ARIZMENDI [phone] Jean Joy MD LAB - PATHOLOGY/CYTO LOGY ORDERABLES [facility] ACCOUNT BILL documented in this encounter Visit Diagnoses Diagnosis Well female exam with routine gynecological exam- Primary Routine gynecological examination documented in this encounter Care Teams Fish Hatchery Laborer Relationship Specialty Start Date End Date Jean Joy MD PCP - OBGYN 12/27/07 Yvan Booth MD [address] [place] [phone] PCP - General 11/04/09 01/04/23 documented as of this encounter
--- OUTSIDE RECORDS SUMMARY | 2024-03-19 20:48 | XMS_ITS | Encounter Summary ---
Author Organization [facility] Address [address] [facility] [address] Care Team Providers Care Sap Portal Architect Name Role Phone Jean Joy MD Unavailable Yvan Booth MD Primary Care Provider [phone] Reason for Visit * Reason Comments Routine Visit Encounter Details Date Type Department Care Team (Late st Contact Info) Description 11/24/2015 11:30 AM CDT visit [facility] Medical [facility] - PAN TANK WORKER [address] [address] [place], [place] [id number] Jean Joy MD [address] [facility] [place] [address] GA: [id number] Social History Tobacco Use Types Packs/Day Years [...] Sign Reading Time Taken Comments Blood Pressure 140/74 11/24/2015 11:30 AM CDT Pulse - - Temperature - - Respiratory Rate - - Oxygen Saturation - - Inhaled Oxygen Concentration - - Weight 85.3 kg (188 lb) 11/24/2015 11:30 AM CDT Height - - Body Mass Index 32.27 10/05/2015 11:40 AM CDT documented in this encounter Progress Notes * Barbara Alatorre - 12/22/2015 8:54 AM CDTQuick Note: Patient informed * Jean Joy MD - 12/20/2015 9:55 AM CDTQuick Note: Elevated GCT Contact pt and arrange 3 hr GTT * Jean Joy MD - 11/24/2015 11:43 AM CDT Active baby No c/o Check GCT documented in this encounter Plan of Treatment Not on file documented as of this encounter Procedures Procedure Name Priority Date/Time Associated Diagnosis Comments GLUCOSE CHALLENGE Routine 12/17/2015 10: 30 AM CDT care, subsequent , second trimester (HCC) documented in this encounter Results * (ABNORMAL) GLUCOSE CHALLENGE (12/17/2015 10:30 AM [...] PM CDT Narrative Resulting Agency Comment [facility] [address] [facility] [phone] Jean Joy MD LAB - CHEMISTRY BIBIANA BLACKMAN [facility] Organization Address City/State/ZIP Co de Phone Number [facility] ACCOUNT BILL [address] [place] [address] documented in this encounter Visit Diagnoses Diagnosis care, subsequent , second trimester (HCC)- Primary documented in this encounter Care Teams Sap Portal Architect Relationship Specialty Start Date End Date Jean Joy MD PCP - OBGYN 12/27/07 Yvan Booth MD [address] [place] [address] PCP - General 11/04/09 01/04/23 documented as of this encounter
--- OUTSIDE RECORDS SUMMARY | 2024-03-19 20:49 | XMS_ITS | Encounter Summary ---
Author Organization [facility] Address [address] [place] [address]. [place], [place] [address] [place] [address] Care Team Providers Care Manager Eligibility Name Role Phone Jaden Thakur DO Primary Care Provider + Encounter Details Date Type Department Care Team (Late st Contact Info) Description 06/22/2023 Praccelt Message Enc [facility] Medical Group Family & Internal Medicine [facility] [address] [place] [address] Jaden Thakur DO [address] [place], [place] [id number] Forms Social History Tobacco Use Types Packs/Day Years Used Date Smoking Tobacco: Former Cigarettes 0.5 10 0 03/12/2005 - 03/12/2015 Smokeless Tobacco: Never Alcohol Use Standard Drinks/Week Comments Yes 0 (1 standard drink = 0.6 oz pur e alcohol) 2 drinks every 6 months AUDIT-C Answer Date Recorded Frequency of Alcohol Consumption Monthly or less 04/10/2019 Average Number of Drinks 1 or 2 020 Frequency of Binge Drinking Never 03/14 PHQ-2 Answer Date Recorded Patient Health Questionnaire-2 Score 0 03/21/2023 Comments No Sex and Gender Information Value Date Recorded Sex Assigned at Not on file Legal Sex Female 2:33 PM SUPERVISOR PLATE FORMING Gender Identity Not on file Sexual Orientation Not on file 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 * Jaden Thakur DO - 06/27/2023 3:28 PM CDT If started GLP-1, would need to see every 3 months. Since pt is on duloxetine, we could either increase to 120 mg daily or we could add on buspirone. Will send out whichever pt would prefer. documented in this encounter Plan of Treatment Not on file documented as of this encounter Visit Diagnoses Not on filedocumented in this encounter Additional Health Concerns Assessment Noted Time PHQ-9 Depression Total Score: 0 04/30/19 21 9:32 AM SUPERVISOR PLATE FORMING documented as of this encounter Care Teams Manager Eligibility Relationship Specialty Start Date End Date Jaden Thakur DO [address] [place] [address] PCP - General FAMILY PRACTICE 04/10/19 documented as of this encounter
--- OUTSIDE RECORDS SUMMARY | 2024-03-19 20:49 | XMS_ITS | Encounter Summary ---
Author Organization [facility] Address [address] [place] [address]. 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 * Jaden Thakur DO - 08/24/2023 3:48 PM CDT If pt is still taking Zepbound from the GLP-1 one prescriber, I'd recommend continuing taking that.That will be the most effective way of lowering her A1c. documented in this encounter Plan of Treatment Not on file documented as of this encounter Visit Diagnoses Not on filedocumented in this encounter Additional Health Concerns Assessment Noted Time PHQ-9 Depression Total Score: 0 04/30/19 21 9:32 AM EMERGENCY CREW SUPERVISOR documented as of this encounter Care Teams Promotions Director Relationship Specialty Start Date End Date Jaden Thakur DO [address] [place] [address] PCP - General FAMILY PRACTICE 04/10/19 documented as of this encounter
--- OUTSIDE RECORDS SUMMARY | 2024-03-19 20:49 | XMS_ITS | Encounter Summary ---
Author Organization [facility] Address [address] [place] [address]. [place], [place] [id number] [place] [address] Care Team Providers Care Supervisor Yard Name Role Phone Jaden Thakur DO Primary Care Provider + Reason for Visit * Reason Onset Date Comments Prior Authorization 11/22/2023 Ubrelvy 100m g tablets Encounter Details Date Type Department Care Team (Late st Contact Info) Description 11/22/2023 Telephone [facility] Medical Group Family & Internal Medicine [place] [address] [place] [phone] Jaden Thakur DO [facility] [place], [place] [phone] Prior Authorization (Ubrelvy 100mg tablets) Social History Tobacco Use Types Packs/Day Years Used Date Smoking Tobacco: Former Cigarettes 0.5 10 0 03/12/2005 - 03/12/2015 Smokeless Tobacco: Never Alcohol Use Standard Drinks/Week Comments Not Currently 0 (1 standard drink = 0.6 oz [...] on file Legal Sex Female 2:33 PM DENTAL SERVICE CHIEF Gender Identity Not on file Sexual Orientation Not on file 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 Call us at Outcome Approved today by [employer] 2016 CaseId:[id number];Status:Approved;Review Type:Prior Auth;Coverage Start Date:10/23/2023;Coverage End Date:11/21/2024; Authorization Expiration Date: 11/20/2024 * Deedee Reilly MA - 11/22/2023 9:43 AM CDT NAGI pending via M ([id number]) for Ubrelvy 100mg tablets. regina Alston documented in this encounter Plan of Treatment Not on file documented as of this encounter Visit Diagnoses Not on filedocumented in this encounter Additional Health Concerns Assessment Noted Time PHQ-9 Depression Total Score: 0 04/30/19 21 9:32 AM DENTAL SERVICE CHIEF documented as of this encounter Care Teams Supervisor Yard Relationship Specialty Start Date End Date Jaden Thakur DO [address] [place] [address] PCP - General FAMILY PRACTICE 04/10/19 documented as of this encounter
--- OUTSIDE RECORDS SUMMARY | 2024-03-19 20:49 | XMS_ITS | Encounter Summary ---
Author Organization [facility] Address [address] [place] [address]. [place], [place] [address] [place] [address] Care Team Providers Care Industrial Photographer Name Role Phone Jaden Thakur DO Primary Care Provider + Encounter Details Date Type Department Care Team (Latest Contact Info) Description 01/08/2024 Scan HEALTH INFO SRVCS Scanned, Doc Med Group Social History Tobacco Use Types Packs/Day Years [...] on file Legal Sex Female 2:33 PM LOSS PREVENTION MANAGER Gender Identity Not on file Sexual Orientation [...] Total Score: 0 04/30/19 21 9:32 AM LOSS PREVENTION MANAGER documented as of this encounter Care Teams Industrial Photographer Relationship Specialty Start Date End Date Jaden Thakur DO [address] [place] [address] PCP - General FAMILY PRACTICE 04/10/19 documented as of this encounter
--- OUTSIDE RECORDS SUMMARY | 2024-03-19 20:49 | XMS_ITS | Encounter Summary ---
Author Organization [facility] Address [address] [place] [address]. [place], [place] [address] [place] [address] Care Team Providers Care Certified Detention Deputy Name Role Phone Jaden Thakur DO Primary Care Provider + Encounter Details Date Type Department Care Team (Latest Contact Info) Description 02/11/2024 Scan HEALTH INFO SRVCS Scanned, Doc Med [...] on file Legal Sex Female 2:33 PM KITCHEN RUNNER Gender Identity Not on file Sexual Orientation [...] Total Score: 0 04/30/19 21 9:32 AM KITCHEN RUNNER documented as of this encounter Care Teams Certified Detention Deputy Relationship Specialty Start Date End Date Jaden Thakur DO [address] [place] [address] PCP - General FAMILY PRACTICE 04/10/19 documented as of this encounter
--- OUTSIDE RECORDS SUMMARY | 2024-03-19 20:49 | XMS_ITS ---
Author Organization [facility] Address [address] [place] [address] Care Team Providers Care Collision Repairer Name Role Phone Jean Joy MD Unavailable [phone] Jaden Thakur DO Primary Care Provider + PAC Admission - [facility] Status:Closed (Closed) Start date:11/21/2022 Enrollment date:11/21/2022 Enrollment reason:Acute Discharge End date:12/15/2022 Close reason:Following in other program Continued Care and Services Coordination
--- OUTSIDE RECORDS SUMMARY | 2024-03-19 20:49 | XMS_ITS | Encounter Summary ---
Author Organization [facility] Address [address] [place] [address]. [place], [place] [address] [place] [address] Care Team Providers Care Order Dispatcher Name Role Phone Jaden Thakur DO Primary Care Provider + Encounter Details Date Type Department Care Team (Late st Contact Info) Description 08/16/2023 Ostarat Message Enc [facility] Medical Group Family & Internal Medicine [facility] [address] [place] [address] Jaden Thakur DO [address] [place], [place] [phone] Steroids Social History Tobacco Use Types Packs/Day Years [...] on file Legal Sex Female 2:33 PM HUMAN RESOURCES TEAM MEMBER Gender Identity Not on file Sexual Orientation Not on file 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 If she's still taking 3 daily, then taper down to 2 today, 1 tomorrow, and none the next day. If taking 2 daily, then taper to 1 today, and then stop tomorrow. * Katelyn Mathis MA - 08/16/2023 11:46 AM CDT Please advie documented in this encounter Plan of Treatment Not on file documented as of this encounter Visit Diagnoses Not on filedocumented in this encounter Additional Health Concerns Assessment Noted Time PHQ-9 Depression Total Score: 0 04/30/19 21 9:32 AM HUMAN RESOURCES TEAM MEMBER documented as of this encounter Care Teams Order Dispatcher Relationship Specialty Start Date End Date Jaden Thaukr DO [address] [place] [address] PCP - General FAMILY PRACTICE 04/10/19 documented as of this encounter
--- OUTSIDE RECORDS SUMMARY | 2024-03-19 20:49 | XMS_ITS | Encounter Summary ---
Author Organization [facility] Address [address] [place] [address]. 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 * Jaden Thakur DO - 06/29/2023 3:53 PM CDT ----- Message from Pilar Medina MA sent at 06/29/2023 3:49 PM CDT ----- Regarding: FW: Forms Contact: Patient would like Buspirone sent out. ----- Message ----- From: Consuelo Darby Sent: 06/28/2023 2:35 PM CDT To: Dawson Garcia Nurse Subject: Forms I have not started in the [facility] one yet. I will let you know if I do get an appointment scheduled. I would like to try adding the new medication to see if it helps with the anxiety. documented in this encounter Plan of Treatment Not on file documented as of this encounter Visit Diagnoses Diagnosis Anxiety- Primary Anxiety state, unspecified documented in this encounter Additional Health Concerns Assessment Noted Time PHQ-9 Depression Total Score: 0 04/30/19 21 9:32 AM FAILURE ANALYSIS TECHNICIAN documented as of this encounter Care Teams Apple Solutions Consultant Relationship Specialty Start Date End Date Jaden Thakur DO [address] [place] [address] PCP - General FAMILY PRACTICE 04/10/19 documented as of this encounter
--- OUTSIDE RECORDS SUMMARY | 2024-03-19 20:49 | XMS_ITS | Encounter Summary ---
Author Organization [facility] Address [address] [place] [address]. 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 ([facility]) CVA (cerebral vascular accident) ([facility]) Weakness due to acute cerebrovascular accident (CVA) ([facility]) Procedures OFFICE/OUTPATIENT NEW LOW MDM 30-44 MINUTES OFFICE/OUTPT VISIT,NEW,LEVL IV OFFICE/OUTPT VISIT,NEW,LEVL V OFFICE/OUTPT VISIT,EST,LEVL III OFFICE/OUTPT VISIT,EST,LEVL IV OFFICE/OUTPT VISIT,EST,LEVL V Jaden Thakur DO [address] [place] [address] Phone: tel: fax: [place] [address] [address] Phone: tel: fax: Referral ID Status Reason Start Date Expiration Date Visits Requested Visits Authorized [id number] Authorized Specialty Services 08/03/2023 09/01/2024 100 100 Scheduling Instructions [facility] [place] Callaway office address: [address] [place], [place] [address] [address] * Occupational Therapy (Routine) - Authorized Specialty Diagnoses / Procedures Referred By Jimena muller Referred To Contact Occupational Therapy Diagnoses Acute cerebrovascular accident (CVA) due to embolism of right middle cerebral artery ([facility]) CVA (cerebral vascular accident) ([facility]) Weakness due to acute cerebrovascular accident (CVA) ([facility]) Procedures OFFICE/OUTPATIENT NEW LOW MDM 30-44 MINUTES OFFICE/OUTPT VISIT,NEW,LEVL IV OFFICE/OUTPT VISIT,NEW,LEVL V OFFICE/OUTPT VISIT,EST,LEVL III OFFICE/OUTPT VISIT,EST,LEVL IV OFFICE/OUTPT VISIT,EST,LEVL V Jaden Thakur DO [address] [place] [address] Phone: tel: fax: [facility] [place] [address] [place] [address] [address] [place] [address] Phone: tel: fax: Referral ID Status Reason Start Date Expiration Date Visits Requested Visits Authorized [id number] Authorized Specialty Services 08/03/2023 09/01/2024 100 100 Scheduling Instructions [facility] [place] Landa Enter office address: [address] [place] [address] * Physical Medicine (Routine) - Authorized Specialty Diagnoses / Procedures Referred By Jimena muller Referred To Contact PHYSICAL THERAPY Diagnoses CVA (cerebral vascular accident) ([facility]) Weakness due to acute cerebrovascular accident (CVA) ([facility]) Procedures OFFICE/OUTPATIENT NEW LOW MDM 30-44 MINUTES OFFICE/OUTPT VISIT,NEW,LEVL IV OFFICE/OUTPT VISIT,NEW,LEVL V OFFICE/OUTPT VISIT,EST,LEVL III OFFICE/OUTPT VISIT,EST,LEVL IV OFFICE/OUTPT VISIT,EST,LEVL V Jaden Thakur DO [address] [place] [address] Phone: tel: fax: [facility] [address] [place] [address] Phone: tel: fax: Referral ID Status Reason Start Date Expiration Date Visits Requested Visits Authorized [id number] Authorized Physical Therapy 07/25/2023 07/24/2024 100 100 Reason for Visit * Reason Onset Date Comments Referral 07/20/2023 Encounter Details Date Type Department Care Team (Late st Contact Info) Description 07/20/2023 MyChart Message Enc [facility] Medical Group Family & Internal Medicine [facility] [address] [place] [address] Jaden Thakur DO [address] [place] [address] Physical therapy Social History Tobacco Use Types Packs/Day Years [...] on file 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 * Jaden Thakur DO - 07/23/2023 4:28 PM CDT Yes that's fine. documented in this encounter Plan of Treatment Scheduled Referrals Name Type Priority Associated Diagnoses Orde r Schedule Ambulatory referral to Physical Therapy Referral Routine CVA (cerebral vascular accident) ([facility]) Weakness due to acute cerebrovascular accident (CVA) ([facility]) Ordered: 07/25/2023 Ambulatory referral to Occupational Therapy Referral Routine Acute cerebrovascular accident (CVA) due to embolism of right middle cerebral artery ([facility]) CVA (cerebral vascular accident) ([facility]) Weakness due to acute cerebrovascular accident (CVA) ([facility]) Ordered: 08/03/2023 Ambulatory referral to Speech Therapy Referral Routine Acute cerebrovascular accident (CVA) due to embolism of right middle cerebral artery ([facility]) CVA (cerebral vascular accident) ([facility]) Weakness due to acute cerebrovascular accident (CVA) ([facility]) Ordered: 08/03/2023 documented as of this encounter Visit Diagnoses Diagnosis Acute cerebrovascular accident (CVA) due to embolism of right middle cerebral artery ([facility] Primary CVA (cerebral vascular accident) ([facility]) Unspecified cerebral artery occlusion with cerebral infarction Weakness due to acute cerebrovascular accident (CVA) ([facility]) documented in this encounter Additional Health Concerns Assessment Noted Time PHQ-9 Depression Total Score: 0 04/30/19 21 9:32 AM ASSISTANT PROFESSOR OF HISTORY documented as of this encounter Care Teams Power Shovel Operator Relationship Specialty Start Date End Date Jaden Thakur DO [address] [place] [address] PCP - General FAMILY PRACTICE 04/10/19 documented as of this encounter
--- OUTSIDE RECORDS SUMMARY | 2024-03-19 20:49 | XMS_ITS | Encounter Summary ---
Author Organization [facility] Address [address] [place] [address]. [place], [place] [address] [place] [address] Care Team Providers Care Aircraft Pilot Name Role Phone Jaden Thakur DO Primary Care Provider + Reason for Visit * Reason Onset Date Comments Surgical Clearance 12/12/2023 Encounter Details Date Type Department Care Team (Late st Contact Info) Description 12/12/2023 Telephone [facility] Medical Group Family & Internal Medicine [facility] [address] [place] [address] Jaden Thakur DO [address] [place] [address] Surgical Clearance Social History Tobacco Use Types Packs/Day Years [...] on file Legal Sex Female 2:33 PM HYPERBARIC TECHNICIAN Gender Identity Not on file Sexual [...] Total Score: 0 04/30/19 21 9:32 AM HYPERBARIC TECHNICIAN documented as of this encounter Care Teams Aircraft Pilot Relationship Specialty Start Date End Date Jaden Thakur DO [address] [place] [address] PCP - General FAMILY PRACTICE 04/10/19 documented as of this encounter
--- OUTSIDE RECORDS SUMMARY | 2024-03-19 20:49 | XMS_ITS | Encounter Summary ---
Author Organization [facility] Address [address] [place] [address]. [address] [address] Care Team Providers Care Bar Pointer Name Role Phone Jaden Thakur DO Primary Care Provider + Reason for Visit * Reason Onset Date Comments Refill Request 10/30/2023 Encounter Details Date Type Department Care Team (Late st Contact Info) Description 10/30/[address] 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 It is too soon for a refill. Patient is aware and will check to see what is going on. Opportunity given for all questions to be answered, no further needs voiced at this time. LL-10/30/23 * Leonor Roper - 10/30/2023 9:29 AM CDT Pt is needing a refill on cyclobenzaprine 5 mg, [facility]. documented in this encounter Plan of Treatment Not on file documented as of this encounter Visit Diagnoses Not on filedocumented in this encounter Additional Health Concerns Assessment Noted Time PHQ-9 Depression Total Score: 0 04/30/19 21 9:32 AM BLOOD BANK WORKER documented as of this encounter Care Teams Bar Pointer Relationship Specialty Start Date End Date Jaden Thakur DO [address] [place], [place] [phone] PCP - General FAMILY PRACTICE 04/10/19 documented as of this encounter
--- OUTSIDE RECORDS SUMMARY | 2024-03-19 20:49 | XMS_ITS ---
Author Organization [facility] Address [address] [place] [address] Care Team Providers Care Sheet Metal Worker Supervisor Name Role Phone Jean Joy MD Unavailable [phone] Jaden Thakur DO Primary Care Provider + Acute DC - V[facility]ance Status:Closed (Closed) Start date:01/12/2023 Enrollment reason:Identified using claims or encounter data End date:01/12/2023 Close reason:Attribution Challenge Continued Care and Services Coordination
--- OUTSIDE RECORDS SUMMARY | 2024-03-19 20:49 | XMS_ITS | Encounter Summary ---
Author Organization [facility] Address [address] [place] [address]. [place], [place] [address] [place] [address] Care Team Providers Care Parts Inspector Name Role Phone Jaden Thakur DO Primary Care Provider + Encounter Details Date Type Department Care Team (Late st Contact Info) Description 05/31/2023 [employer] Message Enc [facility] Medical Group Family & Internal Medicine [facility] [address] [place] [address] Jaden Thakur DO [address] [place] [address] Men covered. 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 2.5 mg weekly. documented in this encounter Plan of Treatment Not on file documented as of this encounter Visit Diagnoses Not on filedocumented in this encounter Additional Health Concerns Assessment Noted Time PHQ-9 Depression Total Score: 0 04/30/19 21 9:32 AM COLLATING MACHINE OPERATOR documented as of this encounter Care Teams Parts Inspector Relationship Specialty Start Date End Date Jaden Thakur DO [address] [place], [place] [phone] PCP - General FAMILY PRACTICE 04/10/19 documented as of this encounter
--- OUTSIDE RECORDS SUMMARY | 2024-03-19 20:49 | XMS_ITS | Encounter Summary ---
Author Organization [facility] Address [address] [place] [address]. [place], [place] [address] [place] [address] Care Team Providers Care Strategic Partnership Representative Name Role Phone Jaden Thakur DO Primary Care Provider + Encounter Details Date Type Department Care Team (Latest Contact Info) Description 08/27/2023 Scan HEALTH INFO SRVCS Scanned, Doc Med [...] on file Legal Sex Female 2:33 PM CLINICAL LEADER Gender Identity Not on file Sexual Orientation [...] Total Score: 0 04/30/19 21 9:32 AM CLINICAL LEADER documented as of this encounter Care Teams Strategic Partnership Representative Relationship Specialty Start Date End Date Jaden Thakur DO [address] [place] [address] PCP - General FAMILY PRACTICE 04/10/19 documented as of this encounter
--- OUTSIDE RECORDS SUMMARY | 2024-03-19 20:49 | XMS_ITS | Encounter Summary ---
Author Organization [facility] Address [address] [place] [address]. [place] [address] [place] [address] Care Team Providers Care Replanter Name Role Phone Jaden Thakur DO Primary Care Provider + Reason for Referral * Consultation (Urgent) - Authorized Specialty Diagnoses / Procedures Referred By Contac t Referred To Contact ORTHOPAEDICS Diagnoses Subluxation of left shoulder joint, subsequent encounter Procedures OFFICE/OUTPATIENT NEW LOW MDM 30-44 MINUTES OFFICE/OUTPT VISIT,NEW,LEVL IV OFFICE/OUTPT VISIT,NEW,LEVL V OFFICE/OUTPT VISIT,EST,LEVL III OFFICE/OUTPT VISIT,EST,LEVL IV OFFICE/OUTPT VISIT,[place] [address] [place] [address] Phone: tel: fax: Moises Yoon MD [address] [place] [address] Phone: tel: fax: Referral ID Status Reason Start Date Expiration Date Visits Requested Visits Authorized [id number] Authorized Specialty Services 08/13/2023 09/12/2024 99 99 Scheduling Instructions [facility] Reason for Visit * Reason Onset Date Comments Information 08/12/2023 Encounter Details Date Type Department Care Team (Late st Contact Info) Description 08/12/2023 [place] [facility] Message Enc [facility] Medical Group Family & Internal Medicine - [address] [address] Jaden Thakur DO [address] [place] [address] Xray Social History Tobacco Use Types Packs/Day Years [...] on file Legal Sex Female 2:33 PM SALES PROMOTION OFFICER Gender Identity Not on file Sexual Orientation Not on file 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 This was noted in a separate task. * Hodan Balbuena - 08/14/2023 2:34 PM CDT PT called in to inform PCP of scheduling for the referral. Pt scheduled 09/30/23 * Pilar Medina MA - 08/13/2023 5:03 PM CDT Virax message sent to patient. * Jaden Thakur DO - 08/13/2023 4:25 PM CDT I'd recommend the steroid as prescribed and an urgent referral to orthopedics given her hx and worsening symptoms. documented in this encounter Plan of Treatment Scheduled Referrals Name Type Priority Associated Diagnoses Orde r Schedule Ambulatory referral to Orthopedics (OTHER) Referral Routine Subluxation of left shoulder joint, subsequent encounter Ordered: 08/13/2023 documented as of this encounter Visit Diagnoses Diagnosis Subluxation of left shoulder joint, subsequent encounter- Primary documented in this encounter Additional Health Concerns Assessment Noted Time PHQ-9 Depression Total Score: 0 04/30/19 21 9:32 AM SALES PROMOTION OFFICER documented as of this encounter Care Teams Replanter Relationship Specialty Start Date End Date Jaden Thakur DO [address] [place] [address] PCP - General FAMILY PRACTICE 04/10/19 documented as of this encounter
--- OUTSIDE RECORDS SUMMARY | 2024-03-19 20:49 | XMS_ITS | Encounter Summary ---
Author Organization [facility] Address [address] [place] [address]. [address] [address] Care Team Providers Care Content Production Specialist Name Role Phone Jaden Thakur DO Primary Care Provider + Reason for Visit * Reason Onset Date Comments Orders 08/08/2023 Encounter Details Date Type Department Care Team (Late st Contact Info) Description 08/08/2023 Telephone [facility] Medical Group Family & Internal Medicine [facility] [address] [place] [address] Jaden Thakur DO [address] [place] [address] Orders Social History Tobacco Use Types Packs/Day Years [...] on file Legal Sex Female 2:33 PM WINCHER Gender Identity Not on file Sexual Orientation Not on file 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 The patient has had initial eval already. * Jaden Thakur DO - 08/08/2023 3:30 PM CDT Yes that's fine. * Hodan Balbuena - 08/08/2023 9:07 AM CDT Pt would like Physical Therapy orders sent to [facility] in [place], [place] documented in this encounter Plan of Treatment Not on file documented as of this encounter Visit Diagnoses Not on filedocumented in this encounter Additional Health Concerns Assessment Noted Time PHQ-9 Depression Total Score: 0 04/30/19 21 9:32 AM WINCHER documented as of this encounter Care Teams Content Production Specialist Relationship Specialty Start Date End Date Jaden Thakur DO [address] [place] [address] PCP - General FAMILY PRACTICE 04/10/19 documented as of this encounter
--- OUTSIDE RECORDS SUMMARY | 2024-03-19 20:49 | XMS_ITS | Encounter Summary ---
Author Organization [facility] Address [address] [place] [address]. 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
--- OUTSIDE RECORDS SUMMARY | 2024-03-19 20:49 | XMS_ITS | Encounter Summary ---
Author Organization [facility] Address [address] [place] [address]. 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
--- OUTSIDE RECORDS SUMMARY | 2024-03-19 20:49 | XMS_ITS | Encounter Summary ---
Author Organization [facility] Address [address] [place] [address]. 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
--- OUTSIDE RECORDS SUMMARY | 2024-03-19 20:49 | XMS_ITS | Encounter Summary ---
Author Organization [facility] Address [address] [place] [address]. [address] [place] [address] Care Team Providers Care Public Works Director Name Role Phone Jaden Thakur DO Primary Care Provider + Encounter Details Date Type Department Care Team (Late st Contact Info) Description 06/20/2023 [employer] Message Enc [facility] Medical Group Family & Internal Medicine [facility] [address] [place] [address] Jaden Thakur DO [address] [place], [place] [phone] Form Social History Tobacco Use Types Packs/Day Years [...] on file Legal Sex Female 2:33 PM ABALONE SHELLER Gender Identity Not on file Sexual Orientation [...] Total Score: 0 04/30/19 21 9:32 AM ABALONE SHELLER documented as of this encounter Care Teams Public Works Director Relationship Specialty Start Date End Date Jaden Thakru DO [address] [place] [address] PCP - General FAMILY PRACTICE 04/10/19 documented as of this encounter
--- OUTSIDE RECORDS SUMMARY | 2024-03-19 20:49 | XMS_ITS | Encounter Summary ---
Author Organization [facility] Address [address] [place] [address]. [address] [address] Care Team Providers Care Internal Consultant Name Role Phone Jaden Thakur DO Primary Care Provider + Reason for Visit * Reason Onset Date Comments Migraine 11/19/2023 Encounter Details Date Type Department Care Team (Late st Contact Info) Description 11/19/2023 [employer] Message Enc [facility] Medical Group Family & Internal Medicine [facility] [address] [place] [address] Jaden Thakur DO [address] [place], [place] [phone] Migraine Social History Tobacco Use Types Packs/Day Years [...] on file Legal Sex Female 2:33 PM DIRECTOR OF RECRUITMENT AND ADMISSIONS Gender Identity Not on file Sexual Orientation Not on file 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 * Jaden Thakur DO - 11/21/2023 9:30 AM CDT Can send out Ubrelvy 100 mg, take 1 tablet daily as needed, can repeat in 2 hours for a maximum of 200 mg in 24 hours. documented in this encounter Plan of Treatment Not on file documented as of this encounter Visit Diagnoses Diagnosis Migraine without aura and without status migrainosus, not intractable- Primary Migraine without aura, without mention of intractable migraine without mention of status migrainosus documented in this encounter Additional Health Concerns Assessment Noted Time PHQ-9 Depression Total Score: 0 04/30/19 21 9:32 AM DIRECTOR OF RECRUITMENT AND ADMISSIONS documented as of this encounter Care Teams Internal Consultant Relationship Specialty Start Date End Date Jaden Thakur DO [address] [place] [address] PCP - General FAMILY PRACTICE 04/10/19 documented as of this encounter
--- OUTSIDE RECORDS SUMMARY | 2024-03-19 20:49 | XMS_ITS | Encounter Summary ---
Author Organization [facility] Address [address] [place] [address]. [place], [place] [address] [place] [address] Care Team Providers Care Supervisor Water Softener Service Name Role Phone Jaden Thakur DO Primary Care Provider + Encounter Details Date Type Department Care Team (Latest Contact Info) Description 12/18/2023 Scan [facility] HEALTH INFO SRVCS Scanned, Doc Med Group [...] on file Legal Sex Female 2:33 PM CIGARETTE MAKER Gender Identity Not on file Sexual Orientation [...] Total Score: 0 04/30/19 21 9:32 AM CIGARETTE MAKER documented as of this encounter Care Teams Supervisor Water Softener Service Relationship Specialty Start Date End Date Jaden Thakur DO [address] [place] [address] PCP - General FAMILY PRACTICE 04/10/19 documented as of this encounter
--- OUTSIDE RECORDS SUMMARY | 2024-03-19 20:49 | XMS_ITS ---
Author Organization [facility] Address [address] [facility] [place] [address] Care Team Providers Care Emergency Department Director Name Role Phone Jean Joy MD Unavailable [phone] Jaden Thakur DO Primary Care Provider + Referral (Social Work) - [employer] Status:Closed (Closed) Start date:12/28/2022 Enrollment date:12/28/2022 Enrollment reason:Acute Discharge End date:12/28/2022 Close reason:Follow by dynamic observation Continued Care and Services Coordination
--- OUTSIDE RECORDS SUMMARY | 2024-03-19 20:49 | XMS_ITS | Encounter Summary ---
Author Organization [facility] Address [address] [place] [address]. [place], [place] [address] [place] [address] Care Team Providers Care Energy Attorney Name Role Phone Jaden Thakur DO Primary Care Provider + Reason for Referral * Consultation (Routine) - Authorized Specialty Diagnoses / Procedures Referred By Contac t Referred To Contact NEUROLOGY Diagnoses Headache Procedures OFFICE/OUTPATIENT NEW LOW MDM 30-44 MINUTES OFFICE/OUTPT VISIT,NEW,LEVL IV OFFICE/OUTPT VISIT,NEW,LEVL V OFFICE/OUTPT VISIT,EST,LEVL III OFFICE/OUTPT VISIT,EST,LEVL IV OFFICE/OUTPT VISIT,EST,LEVL V Jaden Thakur DO [address] [place] [address] Phone: tel: fax: [facility] [address] [place] [phone] Phone: tel: fax: Referral ID Status Reason Start Date Expiration Date Visits Requested Visits Authorized [id number] Authorized Specialty Services 2023 10/31/2024 99 99 Scheduling Instructions washu Encounter Details Date Type Department Care Team (Late st Contact Info) Description 10/31/2023 MyChart Message Enc [facility] Medical Group Family & Internal Medicine [facility] [address] [place] [address] Jaden Thakur DO [address] [place] [address] Neurology Social History Tobacco Use Types Packs/Day Years [...] on file Legal Sex Female 2:33 PM SENIOR RECRUITMENT CONSULTANT Gender Identity Not on file Sexual Orientation Not on file 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 2023 4:21 PM * Jaden Thakur DO - 10/31/2023 3:41 PM CDT That's fine. documented in this encounter Plan of Treatment Scheduled Referrals Name Type Priority Associated Diagnoses Orde r Schedule Ambulatory referral to Neurology (OTHER) Referral Routine Headache Ordered: 2023 documented as of this encounter Visit Diagnoses Diagnosis Headache- Primary documented in this encounter Additional Health Concerns Assessment Noted Time PHQ-9 Depression Total Score: 0 04/30/19 21 9:32 AM SENIOR RECRUITMENT CONSULTANT documented as of this encounter Care Teams Energy Attorney Relationship Specialty Start Date End Date Jaden Thakur DO [address] [place] [address] PCP - General FAMILY PRACTICE 04/10/19 documented as of this encounter
--- OUTSIDE RECORDS SUMMARY | 2024-03-19 20:49 | XMS_ITS | Encounter Summary ---
Author Organization [facility] Address [address] [place] [address]. [place], [place] [address] [place] [address] Care Team Providers Care Risk Advisor Name Role Phone Jaden Thakur DO Primary Care Provider + Encounter Details Date Type Department Care Team (Latest Contact Info) Description 09/18/2023 Scan HEALTH INFO SRVCS Scanned, Doc Med [...] on file Legal Sex Female 2:33 PM ABSTRACT CLERK Gender Identity Not on file Sexual Orientation [...] Total Score: 0 04/30/19 21 9:32 AM ABSTRACT CLERK documented as of this encounter Care Teams Risk Advisor Relationship Specialty Start Date End Date Jaden Thakur DO [address] [place] [address] PCP - General FAMILY PRACTICE 04/10/19 documented as of this encounter
--- OUTSIDE RECORDS SUMMARY | 2024-03-19 20:49 | XMS_ITS | Encounter Summary ---
Author Organization [facility] Address [address] [place] [address]. [place], [place] [address] [place] [address] Care Team Providers Care Product Design Manager Name Role Phone Romy Pena DO Primary Care Provider + Reason for Referral * Consultation (Routine) - Authorized Specialty Diagnoses / Procedures Referred By Contac t Referred To Contact NEUROLOGY Diagnoses Cerebrovascular accident (CVA) due to thrombosis of right middle cerebral artery ([facility]) Procedures OFFICE/OUTPATIENT NEW LOW MDM 30-44 MINUTES OFFICE/OUTPT VISIT,NEW,LEVL IV OFFICE/OUTPT VISIT,NEW,LEVL V OFFICE/OUTPT VISIT,EST,LEVL III OFFICE/OUTPT VISIT,EST,LEVL IV OFFICE/OUTPT VISIT,EST,LEVL V Romy Pena DO [address] [place] [address] Phone: tel: fax: [facility] [address] [place] [phone] Phone: tel: fax: Referral ID Status Reason Start Date Expiration Date Visits Requested Visits Authorized [id number] Authorized Specialty Services 12/12/2023 12/11/2024 100 100 Scheduling Instructions Pt reports she was told by [facility] that she needs a new referral specifically for a Stroke Neurologist Pt provided fax number to send to: Reason for Visit * Reason Onset Date Comments Referral 12/06/2023 Encounter Details Date Type Department Care Team (Late st Contact Info) Description 12/06/2023 Telephone [facility] Medical Group Family & Internal Medicine 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 December 05, 2023 Dawson Nieves Nurse (supporting Romy Pena DO) JToi 12/05/23 1:25 PM I cannot believe the trouble I???m having with the neurology department at [facility], but wondering if there???s anyway you could send another referral over specifically for a stroke neurologist they won???t just let me schedule one so now I have to have three neurologist one for seizures one for stroke, and one for headaches If you could send one over I would really appreciate it. I know I gave the fax number and the previous message if you need it if you could let me know when it sent I would really really appreciate it. Thank you guys so much. * Laura Becker RN - 12/06/2023 2:40 PM CDT See other task. LL-12/06/23 * Pilar Epperson - 12/06/2023 10:00 AM CDT The patient called for a referral to the following physician: Is this a new consult:Yes. Dr's name: [facility] Neuro Dept Specialty: Stroke Neurologist Reason for referral (diagnosis): CVA Appointment: none yet Last office visit at this office: Last visit with ROMY PENA in FAMILY PRACTICE was on: 11/13/2023 in [facility] Future appointment scheduled: Future Appointments Date Time Provider Department Center 02/12/2024 10:20 AM Romy Pena DO [id number] [employer] Insurance documented in this encounter Plan of Treatment Scheduled Referrals Name Type Priority Associated Diagnoses Orde r Schedule Ambulatory referral to Neurology (OTHER) Referral Routine Cerebrovascular accident (CVA) due to thrombosis of right middle cerebral artery (CMS/HCC HHS/HCC) Ordered: 12/12/2023 documented as of this encounter Visit Diagnoses Diagnosis Cerebrovascular accident (CVA) due to thrombosis of right middle cerebral artery (CMS/HCC HHS/HCC)- Primary documented in this encounter Additional Health Concerns Assessment Noted Time PHQ-9 Depression Total Score: 0 04/30/19 21 9:32 AM MORGUE LIBRARIAN documented as of this encounter Care Teams Product Design Manager Relationship Specialty Start Date End Date Romy Pena DO [address] [place] [address] PCP - General FAMILY PRACTICE 04/10/19 documented as of this encounter
--- OUTSIDE RECORDS SUMMARY | 2024-03-19 20:49 | XMS_ITS | Encounter Summary ---
Author Organization [facility] Address [address] [place] [address]. [place], [place] [id number] [place] [id number] Care Team Providers Care Motor Vehicle Licence Examiner Name Role Phone Jaden Thakur DO Primary Care Provider + Reason for Referral * Consultation (Urgent) - Authorized Specialty Diagnoses / Procedures Referred By Jimena muller Referred To Contact NEUROLOGY Diagnoses Migraine without aura and without status migrainosus, not intractable Cerebrovascular accident (CVA) due to thrombosis of right middle cerebral artery ([facility]) Generalized seizure ([facility]) Procedures OFFICE/OUTPATIENT NEW LOW MDM 30-44 MINUTES OFFICE/OUTPT VISIT,NEW,LEVL IV OFFICE/OUTPT VISIT,NEW,LEVL V OFFICE/OUTPT VISIT,EST,LEVL III OFFICE/OUTPT VISIT,EST,LEVL IV OFFICE/OUTPT VISIT,EST,LEVL V Jaden Thakur DO [address] [place] [address] Phone: tel: fax: Becky Pires MD [address] [place] [address] Phone: tel: fax: Referral ID Status Reason Start Date Expiration Date Visits Requested Visits Authorized [id number] Authorized Specialty Services 02/12/2024 03/14/2025 100 100 OR DOT NET DEVELOPER * Consultation (Routine) - Authorized Specialty Diagnoses / Procedures Referred By Contac t Referred To Contact UROLOGY Diagnoses Frequent UTI Procedures OFFICE/OUTPATIENT NEW LOW MDM 30-44 MINUTES OFFICE/OUTPT VISIT,NEW,LEVL IV OFFICE/OUTPT VISIT,NEW,LEVL V OFFICE/OUTPT VISIT,EST,LEVL III OFFICE/OUTPT VISIT,EST,LEVL IV OFFICE/OUTPT VISIT,EST,LEVL V Jaden Thakur DO [address] [place] [address] Phone: tel: fax: Trevor Mora MD [address] [phone] Phone: tel: fax: Referral ID Status Reason Start Date Expiration Date Visits Requested Visits Authorized [id number] Authorized Specialty Services 02/12/2024 02/11/2025 100 100 OR DOT NET DEVELOPER Reason for Visit * Reason Comments ER F/U The patient was seen for ER for N/V/D. The patient states she has not ate since 02/02/2024. The patient states she is still drinking fluids. Encounter Details Date Type Department Care Team (Late st Contact Info) Description 02/12/2024 1:20 PM SENIOR DOT NET DEVELOPER Office Visit [facility] Family & Internal Medicine - [address] [phone] Jaden Thakur DO [address] [place] [address] ER F/U (The patient was seen for ER for N/V/D. The patient states she has not ate since 02/02/2024. The patient states she is still drinking fluids. 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 file documented as of this encounter Last Filed Vital Signs Vital Sign Reading Time Taken Comments Blood Pressure 122/82 02/12/2024 1:27 PM SENIOR DOT NET DEVELOPER Pulse 87 02/12/2024 1:27 PM SENIOR DOT NET DEVELOPER Temperature 36.7 ??C (98.1 ??F) 02/12/2024 1:27 PM CS T Respiratory Rate 16 02/12/2024 1:27 PM SENIOR DOT NET DEVELOPER Oxygen Saturation 98% 02/12/2024 1:27 PM SENIOR DOT NET DEVELOPER Inhaled Oxygen Concentration - - Weight 100.8 kg (222 lb 4.8 oz) 02/12/2024 1:27 PM SENIOR DOT NET DEVELOPER Height 162.6 cm (5' 4 ) 02/12/2024 1:27 PM SENIOR DOT NET DEVELOPER Body Mass Index 38.16 02/12/2024 1:27 PM SENIOR DOT NET DEVELOPER documented in this encounter Progress Notes * Jaden Thakur, DO - 02/12/2024 1:20 PM CST Images from the original note were not included. GENERAL OFFICE VISIT Encounter Date: 02/12/2024 Chief Complaint: 43-year-old female presents for ER F/U (The patient was seen for ER for N/V/D. The patient states she has not ate since 02/02/2024. The patient states she is still drinking fluids. ) HPI: Pt presents for ER follow-up. Pt had been having nausea, vomiting, and headache as well as LLQ pain. Pt went to ER on 02/11/24. Pt had CT scan which showed 3.2 cm left ovarian cyst with recommendationto repeat ultrasound in 6 weeks. This was not thought to be related per radiology. Labs were remarkable for mildly elevated lipase and elevated liver enzymes. Pt had possible NAFLD findings on her liver. No leukocytosis. We had offered her phenergan on 02/11/24 which she deferred. Pt states she has not eaten anything since 02/02/24. Pt states she was diagnosed with treatment-resistant UTI and viral gastroenteritis. Pt was given Rocephin and cefdinir. Pt still is noting migraines that are not improving as well. Pt has taken Ubrelvy but it doesn't completely get rid of them. Pt is scheduled to see a migraine specialist in June. She has been using her wheelchair more at this time and having more dizziness. She has started having UTI's one a month for the past month. She was recommended to see urology again if she started having this issue. Pt saw pain management today and will have shoulder injection and hip injection in the near future. Review of Systems Constitutional: Negative for fever. Cardiovascular: Negative for chest pain. Gastrointestinal: Positive for abdominal pain, diarrhea, nausea and vomiting. Genitourinary: Positive for dysuria. Neurological: Positive for dizziness. Patient Active Problem List Diagnosis GERD (gastroesophageal reflux disease) BMI 30.0-30.9,adult Seasonal allergies Elevated fasting glucose Acquired skull defect Anemia Hypertension Left-sided sensory deficit present Hepatocellular injury Hemianopsia Gaze palsy Acute cerebrovascular accident (CVA) due to embolism of right middle cerebral artery (CMS/HCC HHS/HCC) Generalized seizure (CMS/HCC HHS/HCC) Migraine without aura and without status migrainosus, not intractable Past Medical History: Diagnosis Date Allergy Anxiety Common femoral artery injury, right, subsequent encounter 12/29/2022 GERD (gastroesophageal reflux disease) Migraine 10/19/2022 Presence of externally removable percutaneous endoscopic gastrostomy (PEG) tube (CMS/HCC HHS/HCC) 2022 Received intravenous tissue plasminogen activator (tPA) in emergency department 10/19/2022 Seizures (CMS/HCC HHS/HCC) Trochanteric bursitis of left hip 12/08/2022 Past Surgical History: Procedure Laterality Date BRAIN SURGERY SECTION x 2 CHOLECYSTECTOMY SCREENING COLONOSCOPY August 2021, repeat in 5 years Family History Problem Relation Name Age of Onset Hypertension Mother Reny Disla Thyroid Mother Reny Disla Diabetes Mother Reny Disla Alcohol Abuse Father Adam Martin Social History Tobacco Use Smoking status: Former Current packs/day: 0.00 Average packs/day: 0.5 packs/day for 10.0 years (5.0 ttl pk-yrs) Types: Cigarettes Start date: 03/12/2005 Quit date: 03/12/2015 Years since quittin.9 Smokeless tobacco: Never Substance Use Topics Alcohol use: Not Currently Comment: 2 drinks every 6 months Drug use: Never Immunization History Administered Date(s) Administered Fluzone 6 Months+ Quad (0.5 mL Prefilled Syringe) 02/15/2023 Influenza (Generic) 12/11/2015, 12/13/2018, 12/13/2020 Influenza Adult (Generic) 01/06/2013, 12/15/2019, 12/10/2021 MODERNA COVID-19 BIVALENT (12+), MRNA, LNP-S, PF 01/09/2022 PFIZER COVID-19 (ORIGINAL FORMULATION, PURPLE CAP) mRNA, LNP-S, PF, 30 MCG/0.3 ML DOSE 03/03/2020, 03/25/2020, 03/09/2021 Pneumococcal (Prevnar 20) 02/15/2023 Tdap (Generic) 12/21/2015 Current Outpatient Medications Medication Sig Dispense Refill AFO BRACE, DME, Apply 1 Device topically daily. 1 Device 0 aspirin 325 MG tablet Take 1 tablet (325 mg total) by mouth daily. baclofen (LIORESAL) 10 MG tablet TAKE 1 TABLET BY MOUTH DAILY 30 tablet 1 betamethasone dipropionate 0.05 % cream Apply topically 2 (two) times daily. Call the office if needing to use for more than 4 weeks 45 g 0 busPIRone (BUSPAR) 5 MG tablet TAKE 1 TABLET(5 MG) BY MOUTH TWICE DAILY 60 tablet 2 cefdinir (OMNICEF) 300 MG Cap capsule Take 1 capsule (300 mg total) by mouth 2 (two) times daily. Cetirizine HCl 10 MG TABLET DISPERSIBLE Take 1 tablet (10 mg total) by mouth every evening. Cholecalciferol (VITAMIN D3) 50 MCG (2000 UT) Tab Take by mouth daily. cyclobenzaprine (FLEXERIL) 5 MG tablet Take 1 tablet (5 mg total) by mouth 3 (three) times daily. 270 tablet 0 DULoxetine (CYMBALTA) 60 MG capsule Take 1 capsule (60 mg total) by mouth daily. 90 capsule 3 HYDROcodone-acetaminophen (NORCO) 10-325 MG tablet Take 0.5-1 tablets by mouth every 6 (six) hours as needed for Pain. Indications: Chronic Pain 120 tablet 0 hydrOXYzine (ATARAX) 25 MG tablet Take 1 tablet (25 mg total) by mouth every 8 (eight) hours as needed. 90 tablet 2 levETIRAcetam (KEPPRA) 1000 MG tablet Take 1.5 tablets (1,500 mg total) by mouth 2 (two) times daily. metoprolol tartrate (LOPRESSOR) 25 MG tablet take 1 tablet by mouth twice daily 180 tablet 1 naloxone (NARCAN) 4 MG/0.1ML nasal spray 1 spray by Nasal route as needed for Opioid reversal. may repeat every 2 to 3 minutes in alternating nostrils until medical assistance becomes available 1 each PRN ondansetron (ZOFRAN-ODT) 8 MG disintegrating tablet Take 1 tablet (8 mg total) by mouth every 8 (eight) hours as needed for Nausea. 30 tablet 2 pantoprazole EC (PROTONIX) 40 MG tablet TAKE 1 TABLET BY MOUTH DAILY 90 tablet 0 polyethylene glycol (GLYCOLAX) packet 240 mLs (17 g total). ubrogepant (UBRELVY) 100 MG tablet Take 1 tablet (100 mg total) by mouth 2 (two) times daily as needed for Migraine. Max of 2 tablets (200 mg) in 24 hours 30 tablet 2 verapamil ER (VERELAN PM) 180 MG 24 hr capsule Take 1 capsule (180 mg total) by mouth nightly at bedtime. 90 capsule 3 No current facility-administered medications for this visit. Review of patient's allergies indicates: Allergen Reactions Latex Rash and Other (see comment) Vancomycin Other (see comment) High fevers Objective: Filed Vitals: 02/12/24 1327 BP: 122/82 Pulse: 87 Resp: 16 Temp: 98.1 ??F (36.7 ??C) TempSrc: Skin SpO2: 98% Weight: 100.8 kg (222 lb 4.8 oz) Height: 1.626 m (5' 4 ) Physical Exam Vitals and nursing note reviewed. Constitutional: Comments: Sitting in wheelchair comfortably, similar to previous appearance HENT: Head: Normocephalic and atraumatic. Right Ear: External ear normal. Left Ear: External ear normal. Eyes: Conjunctiva/sclera: Conjunctivae normal. Cardiovascular: Rate and Rhythm: Normal rate and regular rhythm. Heart sounds: Normal heart sounds. No murmur heard. No friction rub. No gallop. Pulmonary: Effort: Pulmonary effort is normal. No respiratory distress. Breath sounds: Normal breath sounds. No wheezing or rales. Abdominal: Palpations: Abdomen is soft. Tenderness: There is no abdominal tenderness. Neurological: Mental Status: She is alert. Assessment & Plan: Consuelo was seen today for er f/u. Diagnoses and all orders for this visit: Migraine without aura and without status migrainosus, not intractable - ubrogepant (UBRELVY) 100 MG tablet; Take 1 tablet (100 mg total) by mouth 2 (two) times daily as needed for Migraine. Max of 2 tablets (200 mg) in 24 hours - ketorolac (TORADOL) injection 60 mg - verapamil ER (VERELAN PM) 180 MG 24 hr capsule; Take 1 capsule (180 mg total) by mouth nightly atbedtime. - Ambulatory referral to Neurology ([facility]) Acute gastroenteritis - ondansetron (ZOFRAN-ODT) 8 MG disintegrating tablet; Take 1 tablet (8 mg total) by mouth every 8 (eight) hours as needed for Nausea. Frequent UTI - Ambulatory referral to Urology (OTHER) Cerebrovascular accident (CVA) due to thrombosis of right middle cerebral artery ([facility]) - Ambulatory referral to Neurology ([facility]) Generalized seizure ([facility]) - Ambulatory referral to Neurology ([facility]) Cyst of left ovary Elevated liver enzymes Discussion/Summary: For migraine, will increase verapamil today. Consider decreasing metoprolol if having hypotension. Continue other migraine agents; will try to refer to our neurology given her multiple issues and theextended period of time needed to see neurology at [facility] (no longer able to see [facility] specialists). Forgastroenteritis, will have pt try Zofran at 8 mg TID prn. Will refer to urology for frequent UTI's.Will reach out to gynecology about left ovary cyst. Will recheck labs at next OV. Will have pt f/u in 1 month or sooner if needed. Pt v/u. I personally spent a total of 63 minutes on the day of the encounter. This includes tsup-bu-venz and jsd-fhou-sc-face time I provided on the day of the encounter & excludes time spent performing separately reportable services. Jaden Thakur DO OR DOT NET DEVELOPER documented in this encounter Plan of Treatment Scheduled Referrals Name Type Priority Associated Diagnoses Orde r Schedule Ambulatory referral to Urology (OTHER) Referral Routine Frequent UTI Ordered: 02/12/2024 Ambulatory referral to Neurology ([facility]) Referral Routine Migraine without aura and without status migrainosus, not intractable Cerebrovascular accident (CVA) due to thrombosis of right middle cerebral artery ([facility]) Generalized seizure ([facility]) Ordered: 02/12/2024 documented as of this encounter Visit Diagnoses Diagnosis Migraine without aura and without status migrainosus, not intractable- Primary Migraine without aura, without mention of intractable migraine without mention of status migrainosus Acute gastroenteritis Other and unspecified noninfectious gastroenteritis and colitis Frequent UTI Urinary tract infection, site not specified Cerebrovascular accident (CVA) due to thrombosis of right middle cerebral artery ([facility]) Generalized seizure ([facility]) Other convulsions Cyst of left ovary Other and unspecified ovarian cyst Elevated liver enzymes Nonspecific elevation of levels of transaminase or lactic acid dehydrogenase (LDH) documented in this encounter Administered Medications Inactive Administered Medications - up to 3 most recent administrations Medication Order MAR Action Action Date Dose Rate Site ketorolac (TORADOL) injection 60 mg 60 mg, Intramuscular, Once, 1 dose, On Sun02/12/24 at 1415Indications:Migraine without aura and without status migrainosus, not intractable Given 02/12/2024 2:40 PM SENIOR DOT NET DEVELOPER 60 mg Other documented in this encounter Additional Health Concerns Assessment Noted Time PHQ-9 Depression Total Score: 0 04/30/19 21 9:32 AM SENIOR DOT NET DEVELOPER documented as of this encounter Care Teams Motor Vehicle Licence Examiner Relationship Specialty Start Date End Date Jaden Thakur DO [address] [place] [address] PCP - General FAMILY PRACTICE 04/10/19 documented as of this encounter
--- OUTSIDE RECORDS SUMMARY | 2024-03-19 20:49 | XMS_ITS | Encounter Summary ---
Author Organization [facility] Address [address] [place] [address]. [address] [address] Care Team Providers Care Fashion Marketer Name Role Phone Jaden Thakur DO Primary Care Provider + Reason for Visit * Reason Onset Date Comments Question 05/28/2023 Encounter Details Date Type Department Care Team (Late st Contact Info) Description 05/28/2023 Telephone [facility] Family & Internal Medicine [facility] [address] [place] [address] Jaden Thakur DO [address] [place] [address] Question Social History Tobacco Use [...] on file Legal Sex Female 2:33 PM FORGE HELPER Gender Identity Not on file Sexual Orientation Not on file 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 Jazz Martin they want to decrease the patients keppra to500 QD for 3 weeks, then 250 mg QD for 3 weeks and then stop. Patient notified as well from Dr. Lerner office and this office. Patient notified and verbalized understanding. Opportunity given for all questions to be answered, no further needs voiced at this time. LL-05/30/23 * Pilar Medina MA - 05/30/2023 10:51 AM CDT Lynette BOGGS called from neurosurgery. She states she is still waiting on Dr. Lerner reply. She will r/cwhen she responds as well as call the patient. * Laura Becker RN - 05/30/2023 10:16 AM CDT Called over and left message with Dr. Martin's nurse at [phone]. -05/30/23 * Jaden Thakur DO - 05/28/2023 11:45 AM CDT Please reach out to Laura Patel APRN-CNP's office at [facility]. Pt has been on Keppra following her cranial defect corrective procedure since 01/12/24 (more details available in CareEverywhere). I wanted to clarify if they had recommendations regarding how long to continue this Keppra. She has not had any seizure issues since being on this medication. documented in this encounter Plan of Treatment Not on file documented as of this encounter Visit Diagnoses Not on filedocumented in this encounter Additional Health Concerns Assessment Noted Time PHQ-9 Depression Total Score: 0 04/30/19 21 9:32 AM FORGE HELPER documented as of this encounter Care Teams Fashion Marketer Relationship Specialty Start Date End Date Jaden Thakur DO [address] [place] [id number] PCP - General FAMILY PRACTICE 04/10/19 documented as of this encounter
--- OUTSIDE RECORDS SUMMARY | 2024-03-19 20:49 | XMS_ITS | Clinical Summary ---
Author Organization [facility] Address [address] [place] [address]. [place] [address] [place] [address] Care Team Providers Care Web Methods Developer Name Role Phone Jaden Thakur Primary Care Provider + Allergies Active Allergy Reactions Criticality Noted Date Comments Latex Rash,Other (see comment) Medium 04/10/2019 Vancomycin Other (see comment) 12/22/2022 High fevers Medications Cetirizine HCl 10 MG TABLET DISPERSIBLE Take 1 tablet (10 mg total) by mouth every evening. Active Cholecalciferol (VITAMIN D3) 50 MCG (1999 UT) Tab Take by mouth daily. 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 1 Device 12/29/19 Active naloxone (NARCAN) 4 MG/0.1ML nasal sprayIndications:O pioid use 1 spray by Nasal route as needed for Opioid reversal. may repeat every 2 to 3 minutes in alternating nostrils until medical assistance becomes available 1 each 03/21/19 24 025 Active hydrOXYzine (ATARAX) 25 MG tabletIndications: Anxiety Take 1 tablet (25 mg total) by mouth every 8 (eight) hours as needed. 90 tablet 2 03/21/19 24 Active aspirin 325 MG tablet Take 1 tablet (325 mg total) by mouth daily. Active polyethylene glycol (GLYCOLAX) packet 240 mLs (17 g total). 12/15/19 23 Active DULoxetine (CYMBALTA) 60 MG capsuleIndications :Acute low back pain without sciatica, unspecified back pain laterality Take 1 capsule (60 mg total) by mouth daily. 90 capsule 3 08/10/19 24 Active metoprolol tartrate (LOPRESSOR) 25 MG tabletIndications: Hypertension, unspecified type take 1 tablet by mouth twice daily 180 tablet 1 10/03/19 24 Active levETIRAcetam (KEPPRA) 1000 MG tablet Take 1.5 tablets (1,500 mg total) by mouth 2 (two) times daily. 10/21/19 24 Active betamethasone dipropionate 0.05 % creamIndications:R lynn Apply topically 2 (two) times daily. Call the office if needing to use for more than 4 weeks 45 g 11/13/19 24 Active busPIRone (BUSPAR) 5 MG tabletIndications: Anxiety TAKE 1 TABLET(5 MG) BY MOUTH TWICE DAILY 60 tablet 2 01/02/20 24 Active pantoprazole EC (PROTONIX) 40 MG tabletIndications: Gastroesophageal reflux disease, unspecified whether esophagitis present TAKE 1 TABLET BY MOUTH DAILY 90 tablet 01/30/20 24 Active baclofen (LIORESAL) 10 MG tabletIndications: Acquired skull defect TAKE 1 TABLET BY MOUTH DAILY 30 tablet 1 01/30/20 24 Active cyclobenzaprine (FLEXERIL) 5 MG tabletIndications: Cerebrovascular accident (CVA) due to thrombosis of right middle cerebral artery (CMS/HCC HHS/HCC),Subluxati on of left shoulder joint, subsequent encounter Take 1 tablet (5 mg total) by mouth 3 (three) times daily. 270 tablet 02/06/20 24 Active ubrogepant (UBRELVY) 100 MG tabletIndications: Migraine without aura and without status migrainosus, not intractable Take 1 tablet (100 mg total) by mouth 2 (two) times daily as needed for Migraine. Max of 2 tablets (200 mg) in 24 hours 30 tablet 2 02/12/20 24 Active verapamil ER (VERELAN PM) 180 MG 24 hr capsuleIndications :Migraine without aura and without status migrainosus, not intractable Take 1 capsule (180 mg total) by mouth nightly at bedtime. 90 capsule 3 02/12/20 24 Active ondansetron (ZOFRAN-ODT) 8 MG disintegrating tabletIndications: Acute gastroenteritis Take 1 tablet (8 mg total) by mouth every 8 (eight) hours as needed for Nausea. 30 tablet 2 02/12/20 24 Active HYDROcodone-acetam inophen (NORCO) 10-325 MG tabletIndications: Chronic Pain Take 0.5-1 tablets by mouth every 6 (six) hours as needed for Pain. Indications: Chronic Pain # one hundred twenty tablets 120 tablet 02/20/20 24 Active HYDROcodone-acetam inophen (NORCO) 10-325 MG tabletIndications: Chronic Pain Take 0.5-1 tablets by mouth every 6 (six) hours as needed for Pain. Indications: Chronic Pain 120 tablet 01/02/20 24 024 Discontinu ed(Reorder ) cefdinir (OMNICEF) 300 MG Cap capsule Take 1 capsule (300 mg total) by mouth 2 (two) times daily. 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 Acute cerebrovascular accide nt (CVA) due to embolism of right middle cerebral artery ([facility]) 10/19/2022 Elevated fasting glucose 11/07/2019 GERD (gastroesophageal reflux disease) 0 BMI 30.0-30.9,adult 04/10/2019 Seasonal allergies 04/10/2019 Resolved Problems Problem Noted Date Diagnosed Date Resolved Date Common femoral artery injury , right, subsequent encounter 12/29/2022 01/25/2023 Trochanteric bursitis of left hip 12/08/2022 12/22/2022 Presence of externally remov able percutaneous endoscopic gastrostomy (PEG) tube ([facility]) 2022 12/22/2022 Received intravenous tissue plasminogen activator (tPA) in emergency department 10/19/2022 12/22/2022 Migraine 10/19/2022 12/22/2022 Encounters Date Type Department Care Team Description 02/12/2024 1:20 PM RESEARCH AND DEVELOPMENT SPECIALIST Office Visit [facility] Internal [address] [phone] Jaden Thakur, DO ER F/U (The patient was seen for ER for N/V/D. The patient states she has not ate since 02/02/2024. The patient states she is still drinking fluids. ) 02/12/2024 Telephone [facility] Internal [address] [phone] Jaden Thakur, DO Question 02/12/2024 Travel 02/11/2024 Scan [facility] HEALTH INFO SRVCS Scanned, Doc Med Group 02/06/2024 MyChart Message Enc [facility] Internal [address] [phone] Jaden Tahkur, DO Sick 01/08/2024 Scan [facility] HEALTH INFO SRVCS Scanned, Doc Med Group 12/18/2023 Scan [facility] HEALTH INFO SRVCS Scanned, Doc Med Group from Last 3 Months Immunizations Name Administration Dates Next Due Fluzone 6 Months+ Quad (0.5 mL Prefilled Syringe) 02/15/2023 Influenza (Generic) 12/13/2020,12/13/2018,2015 Influenza Adult (Generic) 12/10/2021,12/15/2019, 01/06/2013 MODERNA COVID-19 BIVALENT (1 2+), MRNA, LNP-S, PF 01/09/2022 PFIZER COVID-19 (ORIGINAL FO RMULATION, PURPLE CAP) mRNA, LNP-S, PF, 30 MCG/0.3 ML DOSE 03/09/2021,03/25/2020,03/03/2020 Pneumococcal (Prevnar 20) 02/15/2023 Tdap (Generic) 12/21/2015 Family History Medical History Relation Comments Alcohol Abuse Father Diabetes Mother Hypertension Mother Thyroid Mother Relation Status Comments Father Mother Social History Tobacco Use Types Packs/Day [...] on file Legal Sex Female 2:33 PM RESEARCH AND DEVELOPMENT SPECIALIST Gender Identity Not on file Sexual Orientation Not on file 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 file Last Filed Vital Signs Vital Sign Reading Time Taken Comments Blood Pressure 122/82 02/12/2024 1:27 PM RESEARCH AND DEVELOPMENT SPECIALIST Pulse 87 02/12/2024 1:27 PM RESEARCH AND DEVELOPMENT SPECIALIST Temperature 36.7 ??C (98.1 ??F) 02/12/2024 1:27 PM CS T Respiratory Rate 16 02/12/2024 1:27 PM RESEARCH AND DEVELOPMENT SPECIALIST Oxygen Saturation 98% 02/12/2024 1:27 PM RESEARCH AND DEVELOPMENT SPECIALIST Inhaled Oxygen Concentration - - Weight 100.8 kg (222 lb 4.8 oz) 02/12/2024 1:27 PM RESEARCH AND DEVELOPMENT SPECIALIST Height 162.6 cm (5' 4 ) 02/12/2024 1:27 PM RESEARCH AND DEVELOPMENT SPECIALIST Body Mass Index 38.16 02/12/2024 1:27 PM RESEARCH AND DEVELOPMENT SPECIALIST Plan of Treatment Health Maintenance Due Date Last Done Comments Annual Physical 06/14/2023 06/13/2022, 04/12, 04/10/2019 Influenza Adult (#1) 2024 02/15/2023, 12/10/2021, 12/13/2020, Additional history exists Postponed from 12/11/2023 (Future Appointment) COVID-19 Vaccine ( season) 2024 01/09/2022, 03/09/2021, 03/25/2020, Additional history exists Postponed from 11/11/2023 (Patient Refused) Hepatitis B Vaccines (1 of 3 - 19+ 3-dose series) 11/12/2024 Postponed from 2001 (Patient/Guardian Refusal) Mammogram Screening 02/15/2025 02/15/2023, DTaP, Tdap and Td Vaccines (2 - Td or Tdap) 12/20/2025 12/21/2015 Cervical Cancer Screening Pap Smear (Age 30 to 64) Every 3 Years 01/06/2027 01/07/2024, 02/08/2022, 01/10/2021 Cervical Cancer Screening Pap with HPV Testing (Age 30 to 64) Every 5 Years 02/08/2027 02/08/2022, 01/10/2021 Cervical Cancer Screening with HPV 02/08/2027 Hepatitis C Completed 11/02/2022, 10/11, 10/25/2022, Additional history exists Pneumococcal Vaccine: Pediatrics (0 to 5 Years) and At-Risk Patients (6 to 64 Years) Completed 02/15/2023 HPV Vaccines Aged Out No longer eligi ble based on patient's age to complete this topic Meningococcal Vaccine Aged Out No shira hung eligible based on patient's age to complete this topic RSV Immunizations Under 20 Months Aged Out No longer eligible based on patient's age to complete this topic Procedures Procedure Name Priority Date/Time Associated Diagnosis Comments MAMMOGRAM GENERIC (SCAN ORDER) 02/15/2023 from Last 3 Months or Most Recently Relevant to Health Maintenance Results * MAMMOGRAM GENERIC (02/15/2023) Anatomical Region Laterality Modality Other 02/15/2023 us Doc [facility] Scanned SCANNING Final Resu lt from Last 3 Months or Most Recently Relevant to Health Maintenance Insurance [employer] Care Teams Web Methods Developer Relationship Specialty Start Date End Date Jaden Thakur DO [address] [place] [address] [id number] PCP - General FAMILY PRACTICE 04/10/19
--- OUTSIDE RECORDS SUMMARY | 2024-03-19 20:49 | XMS_ITS | Encounter Summary ---
Author Organization [facility] Address [address] [place] [address]. 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 documented as of this encounter Plan of Treatment Not on file documented as of this encounter Procedures Procedure Name Priority Date/Time Associated Diagnosis Comments CT GENERIC 06/01/2023 OUTSIDE LAB (SCAN ORDER) 06/01/2023 IMAGE GENERIC 06/01/2023 documented in this encounter Results * OUTSIDE LAB (SCAN ORDER) (06/01/2023) 06/01/2023 [facility] Scanned SCANNING Final Resu lt * IMAGE GENERIC (06/01/2023) Anatomical Region Laterality Modality Other 06/01/2023 us [facility] Scanned SCANNING Final Resu lt * CT GENERIC (06/01/2023) Anatomical Region Laterality Modality Other 06/01/2023 us [facility] Scanned SCANNING Final Resu lt documented in this encounter Visit Diagnoses Not on filedocumented in this encounter Additional Health Concerns Assessment Noted Time PHQ-9 Depression Total Score: 0 04/30/19 21 9:32 AM ACCOUNTS COLLECTOR documented as of this encounter Care Teams Design Chief Relationship Specialty Start Date End Date Jaden Thakur DO [address] [place] [phone] PCP - General FAMILY PRACTICE 04/10/19 documented as of this encounter
--- OUTSIDE RECORDS SUMMARY | 2024-03-19 20:49 | XMS_ITS | Encounter Summary ---
Author Organization [facility] Address [address] [place] [address]. [place], [place] [address] [place] [address] Care Team Providers Care Screening Unit Registered Nurse Name Role Phone Jaden Thakur DO Primary Care Provider + Encounter Details Date Type Department Care Team (Latest Contact Info) Description 10/02/2023 Scan HEALTH INFO SRVCS Scanned, Doc Med [...] on file Legal Sex Female 2:33 PM INSIDE SALES RECRUITER Gender Identity Not on file Sexual Orientation [...] Total Score: 0 04/30/19 21 9:32 AM INSIDE SALES RECRUITER documented as of this encounter Care Teams Screening Unit Registered Nurse Relationship Specialty Start Date End Date Jaden Thakur DO [address] [place] [id number] PCP - General FAMILY PRACTICE 04/10/19 documented as of this encounter
--- OUTSIDE RECORDS SUMMARY | 2024-03-19 20:49 | XMS_ITS | Encounter Summary ---
Author Organization [facility] Address [address] [place] [address]. [place], [place] [address] [place] [address] Care Team Providers Care Motorcycle Service Technician Name Role Phone Jaden Thakur DO Primary Care Provider + Encounter Details Date Type Department Care Team (Latest Contact Info) Description 05/28/2023 Scan HEALTH INFO SRVCS Scanned, Doc Med [...] on file Legal Sex Female 2:33 PM WARP COILER Gender Identity Not on file Sexual Orientation [...] Total Score: 0 04/30/19 21 9:32 AM WARP COILER documented as of this encounter Care Teams Motorcycle Service Technician Relationship Specialty Start Date End Date Jaden Thakur DO [address] [place] [address] PCP - General FAMILY PRACTICE 04/10/19 documented as of this encounter
--- OUTSIDE RECORDS SUMMARY | 2024-03-19 20:49 | XMS_ITS | Encounter Summary ---
Author Organization [facility] Address [address] [place] [address]. [place], [place] [phone] [place] [address] Care Team Providers Care Evidence Specialist Name Role Phone Jaden Thakur DO Primary Care Provider + Reason for Visit * Reason Onset Date Comments Prior Authorization 06/12/2023 Hyrocodone-a cetamenophen Encounter Details Date Type Department Care Team (Late st Contact Info) Description 06/12/2023 Telephone [facility] Family & Internal Medicine 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 Approved Prior authorization approved Payer: [employer] [phone] Note from payer: CaseId:[id number];Status:Approved;Review Type:Prior Auth;Coverage Start Date:05/22/2023;Coverage End Date:06/20/2024; Approval Details Authorized from May 22, 2023 to June 20, 2024 Electronic appeal: Not supported 06-21-23: PA approved for hydrocodone-acetaminophen/la,rma * Pilar Medina MA - 06/21/2023 2:55 PM CDT According to the new ins. Card [employer] scripts needs to be used. PA has been approved. * Jaden Thakur DO - 06/19/2023 8:05 AM CDT Yes, please do so. Pt's CVA severely limits her ability to function and is needing this medication in the interim. * ACE Anderson - 06/18/2023 10:29 AM CDT PA denied. Denial letter scanned into patient's chart * Deedee Reilly MA - 06/12/2023 1:46 PM CDT 06-12-23: PA pending for hydrocodone-acetaminophen 10-325mg la,rma documented in this encounter Plan of Treatment Not on file documented as of this encounter Visit Diagnoses Not on filedocumented in this encounter Additional Health Concerns Assessment Noted Time PHQ-9 Depression Total Score: 0 04/30/19 21 9:32 AM LANDCARE OFFICER documented as of this encounter Care Teams Evidence Specialist Relationship Specialty Start Date End Date Jaden Thakur DO [address] [place] [address] PCP - General FAMILY PRACTICE 04/10/19 documented as of this encounter
--- OUTSIDE RECORDS SUMMARY | 2024-03-19 20:49 | XMS_ITS | Encounter Summary ---
Author Organization [facility] Address [address] [place] [address]. [place], [place] [phone] [place] [address] Care Team Providers Care Senior Piping Designer Name Role Phone Jaden Thakur DO Primary Care Provider + Encounter Details Date Type Department Care Team (Latest Contact Info) Description 11/13/2023 Travel Social History Tobacco Use Types Packs/Day [...] on file Legal Sex Female 2:33 PM CHAIRMAN & CO FOUNDER Gender Identity Not on file Sexual Orientation [...] Total Score: 0 04/30/19 21 9:32 AM CHAIRMAN & CO FOUNDER documented as of this encounter Care Teams Senior Piping Designer Relationship Specialty Start Date End Date Jaden Thakur DO [address] [place] [address] PCP - General FAMILY PRACTICE 04/10/19 documented as of this encounter
--- OUTSIDE RECORDS SUMMARY | 2024-03-19 20:49 | XMS_ITS ---
Author Organization [facility] Address [address] [place] [address] Care Team Providers Care Talent Specialist Name Role Phone Jean Joy MD Unavailable [phone] Jaden Thakur DO Primary Care Provider + PAC Discharge - [facility] Status:Closed (Closed) Start date:12/15/2022 Enrollment date:12/15/2022 End date:01/11/2023 Close reason:Follow by dynamic observation Continued Care and Services Coordination
--- OUTSIDE RECORDS SUMMARY | 2024-03-19 20:49 | XMS_ITS | Encounter Summary ---
Author Organization [facility] Address [address] [place] [address]. 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 Pablo office and schedule an appointment. Opportunity given for all questions to be answered, no further needs voiced at this time. -02/22/24 ER * Laura Becker RN - 02/18/2024 10:45 AM CST Called over to Dr. Moran's office. They would like her to make an appointment with them to follow up. Called and left detailed message for the patient to call and make an appointment with that office. -02/18/24 ER * Laura Becker RN - 02/13/2024 11:45 AM CST Called and left message at the office [phone]. -02/13/24 ER * Jaden Thakur DO - 02/12/2024 2:06 PM CST Please reach out to [facility] (Dr. Moran). Pt was found to have a cyst on her left ovary on recent CT scan. Pt states she had recent ultrasound with them, presumably of pelvis. Was thisnoted previously and is this being monitored by them? ER documented in this encounter Plan of Treatment Not on file documented as of this encounter Visit Diagnoses Diagnosis Frequent UTI- Primary Urinary tract infection, site not specified documented in this encounter Additional Health Concerns Assessment Noted Time PHQ-9 Depression Total Score: 0 04/30/19 21 9:32 AM JERKER documented as of this encounter Care Teams Rn Surgery Icu Relationship Specialty Start Date End Date Jaden Tahkur DO [address] [place] [address] PCP - General FAMILY PRACTICE 04/10/19 documented as of this encounter
--- OUTSIDE RECORDS SUMMARY | 2024-03-19 20:49 | XMS_ITS | Encounter Summary ---
Author Organization [facility] Address [address] [place] [address]. [place], [place] [address] [place] [address] Care Team Providers Care Stapler Machine Name Role Phone Jaden Thakur DO Primary Care Provider + Encounter Details Date Type Department Care Team (Latest Contact Info) Description 06/29/2023 Scan HEALTH INFO SRVCS Scanned, Doc Med [...] on file Legal Sex Female 2:33 PM RAIL CAR PAINTER/SANDBLASTER Gender Identity Not on file Sexual Orientation [...] Total Score: 0 04/30/19 21 9:32 AM RAIL CAR PAINTER/SANDBLASTER documented as of this encounter Care Teams Stapler Machine Relationship Specialty Start Date End Date Jaden Thakur DO [address] [place] [address] PCP - General FAMILY PRACTICE 04/10/19 documented as of this encounter
--- OUTSIDE RECORDS SUMMARY | 2024-03-19 20:49 | XMS_ITS | Encounter Summary ---
Author Organization [facility] Address [address] [place] [address]. [place], [place] [id number] [place] [address] Care Team Providers Care Java Grails Developer Name Role Phone Jaden Thakur DO Primary Care Provider + Reason for Visit * Reason Comments Cva 3 month follow up. Shoulder Pain The patient is needi ng surgery and they will not schedule until neuro and PCP sign off. Encounter Details Date Type Department Care Team (Late st Contact Info) Description 11/13/2023 10:40 AM CDT Office Visit [facility] Medical Group Family & Internal Medicine [facility] [address] [place] [address] Jaden Thakur DO [facility] [place] [address] Cva (3 month follow up. ); Shoulder Pain (The patient is needing surgery and they will not schedule until neuro and PCP sign off. 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 file documented as of this encounter Last Filed Vital Signs Vital Sign Reading Time Taken Comments Blood Pressure 92/66 11/13/2023 10:48 AM CDT Pulse 82 11/13/2023 10:48 AM CDT Temperature 36.4 ??C (97.5 ??F) 11/13/2023 1 0:48 AM CDT Respiratory Rate 16 11/13/2023 10:4 8 AM CDT Oxygen Saturation 98% 11/13/2023 10: 48 AM CDT Inhaled Oxygen Concentration - - Weight 108.8 kg (239 lb 12.8 oz) 2023 10:48 AM CDT Height 162.6 cm (5' 4 ) 11/13/2023 10:4 8 AM CDT Body Mass Index 41.16 11/13/2023 10:48 AM CDT documented in this encounter Progress Notes * Jaden Thakur, - 11/13/2023 10:40 AM CDT Images from the original note were not included. GENERAL OFFICE VISIT Encounter Date: 11/13/2023 Chief Complaint: 43-year-old female presents for Cva (3 month follow up. ) and Shoulder Pain (The patient is needingsurgery and they will not schedule until neuro and PCP sign off. ) HPI: Pt will have surgery on the left shoulder for a labral tear in the near future. She has failed conservative therapy for this. She is needing clearance today for this. Pt is still taking hydrocodone as prescribed; she is stable at this time with this medication. She is on baclofen and cyclobenzaprine; she would like to try something different for her muscle relaxers. Pt will also likely be starting a new position with her previous office working on triage. Pt is still taking Keppra at this time. Pt had continuous EEG for one week; she states she had one episode during this time. Pt has a rash on her lower back. Pt notes it has been present for about 1 week. This will come and go. Pt has tried a steroid cream that her daughter had used, likely triamcinolone. It is itchy; it is not painful. Pt is needing more Nurtec as this helped her with her migraine/headaches. She is not a candidate for triptan therapy given her previous CVA. ROS: Review of Systems Constitutional: Negative for fever. Respiratory: Negative for shortness of breath. Cardiovascular: Negative for chest pain. Musculoskeletal: See HPI Skin: Positive for rash. Neurological: At baseline Medications: Current Outpatient Medications on File Prior to Visit Medication Sig TRAYO AUDRA, DME, Apply 1 Device topically daily. aspirin 325 MG tablet Take 1 tablet (325 mg total) by mouth daily. baclofen (LIORESAL) 5 MG tablet take 1 tablet by mouth daily busPIRone (BUSPAR) 5 MG tablet TAKE 1 TABLET(5 MG) BY MOUTH TWICE DAILY Cetirizine HCl 10 MG TABLET DISPERSIBLE Take 1 tablet (10 mg total) by mouth every evening. Cholecalciferol (VITAMIN D3) 50 MCG (2000 UT) Tab Take by mouth daily. cyclobenzaprine (FLEXERIL) 5 MG tablet Take 1 tablet (5 mg total) by mouth 3 (three) times daily. DULoxetine (CYMBALTA) 60 MG capsule Take 1 capsule (60 mg total) by mouth daily. hydrOXYzine (ATARAX) 25 MG tablet Take 1 tablet (25 mg total) by mouth every 8 (eight) hours as needed. levETIRAcetam (KEPPRA) 1000 MG tablet Take 1.5 tablets (1,500 mg total) by mouth 2 (two) times daily. metoprolol tartrate (LOPRESSOR) 25 MG tablet take 1 tablet by mouth twice daily naloxone (NARCAN) 4 MG/0.1ML nasal spray 1 spray by Nasal route as needed for Opioid reversal. may repeat every 2 to 3 minutes in alternating nostrils until medical assistance becomes available pantoprazole EC (PROTONIX) 40 MG tablet take 1 tablet by mouth daily polyethylene glycol (GLYCOLAX) packet 240 mLs (17 g total). tirzepatide (ZEPBOUND) 2.5 MG/0.5ML injection Inject 2.5 mg into the skin once a week. Increase to 0.5 mg weekly after 1 month verapamil ER (VERELAN PM) 120 MG 24 hr capsule take 1 capsule by mouth every night at bedtime No current facility-administered medications on file prior to visit. Review of patient's allergies indicates: Allergen Reactions Vancomycin Other (see comment) High fevers Latex Rash Patient Active Problem List Diagnosis GERD (gastroesophageal reflux disease) BMI 30.0-30.9,adult Seasonal allergies Elevated fasting glucose Acquired skull defect Anemia Hypertension Left-sided sensory deficit present Hepatocellular injury Hemianopsia Gaze palsy Acute cerebrovascular accident (CVA) due to embolism of right middle cerebral artery ([facility]/HCC) Generalized seizure ([facility]) Migraine without aura and without status migrainosus, not intractable Past Medical History: Diagnosis Date Allergy Anxiety Common femoral artery injury, right, subsequent encounter 12/29/2022 GERD (gastroesophageal reflux disease) Migraine 10/19/2022 Presence of externally removable percutaneous endoscopic gastrostomy (PEG) tube ([facility]) 2022 Received intravenous tissue plasminogen activator (tPA) in emergency department 10/19/2022 Seizures ([facility]) Trochanteric bursitis of left hip 12/08/2022 Past Surgical History: Procedure Laterality Date BRAIN SURGERY SECTION x 2 CHOLECYSTECTOMY SCREENING COLONOSCOPY August 2021, repeat in 5 years Social History Socioeconomic History Marital status: Number of children: 2 Occupational History 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Tobacco Use Smoking status: Former Current packs/day: 0.00 Average packs/day: 0.5 packs/day for 10.0 years (5.0 ttl pk-yrs) Types: Cigarettes Start date: 03/12/2005 Quit date: 03/12/2015 Years since quittin.6 Smokeless tobacco: Never Substance and Sexual Activity Alcohol use: Not Currently Comment: 2 drinks every 6 months Drug use: Never Sexual activity: Not Currently Partners: Male control/protection: Abstinence, OCP Social Determinants of Health Financial Resource Strain: Low Risk (01/10/2023) Received from [facility] [employer] Overall Financial Resource Strain (CARDIA) Difficulty of Paying Living Expenses: Not hard at all Food Insecurity: No Food Insecurity (01/10/2023) Received from [facility] [employer] Hunger Vital Sign Worried About Running Out of Food in the Last Year: Never true Ran Out of Food in the Last Year: Never true Transportation Needs: No Transportation Needs (01/10/2023) Received from [employer] PRAPARE - Transportation Lack of Transportation (Medical): No Lack of Transportation (Non-Medical): No Stress: No Stress Concern Present (01/10/2023) Received from [employer] [place] [facility] [facility] - Occupational Stress Questionnaire Feeling of Stress : Only a little Housing Stability: Low Risk (01/10/2023) Received from [employer] Housing Stability Vital Sign Unable to Pay for Housing in the Last Year: No Number of Places Lived in the Last Year: 1 In the last 12 months, was there a time when you did not have a steady place to sleep or slept in ashelter (including now)?: No Family History Problem Relation Name Age of Onset Hypertension Mother Reny Disla Thyroid Mother Reny Disla Diabetes Mother Reny Disla Alcohol Abuse Father Adam Martin Family Status Relation Name Status Mother Reny Disla (Not Specified) Father Adam Martin (Not Specified) No partnership data on file Objective: Filed Vitals: 11/13/23 1048 BP: 92/66 Pulse: 82 Resp: 16 Temp: 97.5 ??F (36.4 ??C) TempSrc: Skin SpO2: 98% Weight: 108.8 kg (239 lb 12.8 oz) Height: 1.626 m (5' 4 ) Physical Exam Vitals and nursing note reviewed. HENT: Head: Normocephalic and atraumatic. Right Ear: External ear normal. Left Ear: External ear normal. Eyes: General: No scleral icterus. Conjunctiva/sclera: Conjunctivae normal. Pulmonary: Effort: Pulmonary effort is normal. Skin: Comments: Erythematous flat papules noted on lower back Neurological: Mental Status: She is alert. Comments: Sitting in wheelchair, similar to previous, is able to stand with assistance Psychiatric: Mood and Affect: Mood and affect normal. Assessment & Plan: Consuelo was seen today for cva and shoulder pain. Diagnoses and all orders for this visit: Subluxation of left shoulder joint, subsequent encounter - HYDROcodone-acetaminophen (NORCO) 10-325 MG tablet; Take 0.5-1 tablets by mouth every 6 (six) hours as needed for Pain. Indications: Chronic Pain - metaxalone (SKELAXIN) 800 MG tablet; Take 1 tablet (800 mg total) by mouth 3 (three) times daily as needed for Pain. Chronic left hip pain - HYDROcodone-acetaminophen (NORCO) 10-325 MG tablet; Take 0.5-1 tablets by mouth every 6 (six) hours as needed for Pain. Indications: Chronic Pain - metaxalone (SKELAXIN) 800 MG tablet; Take 1 tablet (800 mg total) by mouth 3 (three) times daily as needed for Pain. Labral tear of shoulder, left, subsequent encounter Migraine without aura and without status migrainosus, not intractable - rimegepant (NURTEC) 75 MG disintegrating tablet; Take 1 tablet (75 mg total) by mouth daily as needed for Migraine. Max of 1 tablet (75 mg) in 24 hours. Rash - betamethasone dipropionate 0.05 % cream; Apply topically 2 (two) times daily. Call the office if needing to use for more than 4 weeks Cerebrovascular accident (CVA), unspecified mechanism ([facility]) Generalized seizure ([facility]) Discussion & Summary: Recommend obtaining CBC, CMP, TSH, and Lipid panel whenever she is obtaining labs for her upcoming surgery. Risk acceptable for given procedure otherwise. Will send out betamethasone as per above; consider oral steroid if not improving. Will change cyclobenzaprine to metaxalone; discussed side effect profile. Will continue other meds as prescribed. Will send out Nurtec at this time; has worked well and would benefit. Pt is not a candidate for triptan therapy given previous CVA. I am ordering the [employer] Hand/Foot Rehabilitation System, a robotic based neuro- rehabilitation therapy system for use at home. My patient would functionally benefit from the active assistance and neuromuscular re-education to improve their active and passive range of motion, reduce tone, and increase strength. Additionally, it would improve fine and gross motor functions to assist in eating, dressing, walking, and other activities of daily living. Will have pt f/u in 3 months or sooner if needed. Pt v/u. I personally spent a total of 40 minutes on the day of the encounter. This includes wosy-og-xtey and ddf-mvsr-df-face time I provided on the day of the encounter & excludes time spent performing separately reportable services. Jaden Thakur DO EYOR GEODETIC documented in this encounter Plan of Treatment Not on file documented as of this encounter Visit Diagnoses Diagnosis Subluxation of left shoulder joint, subsequent encounter- Primary Chronic left hip pain Pain in joint, pelvic region and thigh Labral tear of shoulder, left, subsequent encounter Migraine without aura and without status migrainosus, not intractable Migraine without aura, without mention of intractable migraine without mention of status migrainosus Rash Rash and other nonspecific skin eruption Cerebrovascular accident (CVA), unspecified mechanism ([facility]) Generalized seizure ([facility]) Other convulsions documented in this encounter Additional Health Concerns Assessment Noted Time PHQ-9 Depression Total Score: 0 04/30/19 21 9:32 AM SURVEYOR GEODETIC documented as of this encounter Care Teams Java Grails Developer Relationship Specialty Start Date End Date Jaden Thakur DO [address] [place] [id number] PCP - General FAMILY PRACTICE 04/10/19 documented as of this encounter
--- OUTSIDE RECORDS SUMMARY | 2024-03-19 20:49 | XMS_ITS | Encounter Summary ---
Author Organization [facility] Address [address] [place] [address]. 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 documented in this encounter Plan of Treatment Not on file documented as of this encounter Visit Diagnoses Not on filedocumented in this encounter Additional Health Concerns Assessment Noted Time PHQ-9 Depression Total Score: 0 04/30/19 21 9:32 AM ACTION INSTALLER documented as of this encounter Care Teams Oil Expert Relationship Specialty Start Date End Date Jaden Thakur DO [address] [place] [id number] PCP - General FAMILY PRACTICE 04/10/19 documented as of this encounter
--- OUTSIDE RECORDS SUMMARY | 2024-03-19 20:49 | XMS_ITS | Encounter Summary ---
Author Organization [facility] Address [address] [place] [address]. 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 Given all she is on, if this has been going on for days, may need to go to ER. OK to refer back to her neurologist given refractory symptoms. PRINT PROCESSOR * Jaden Thakur DO - 02/06/2024 11:25 AM CST Sent Zofran. Has pt been able to take Ubrelvy or Nurtec for this? I'd recommend one of those. PRINT PROCESSOR documented in this encounter Plan of Treatment Not on file documented as of this encounter Visit Diagnoses Diagnosis Nausea and vomiting, unspecified vomiting type- Primary documented in this encounter Additional Health Concerns Assessment Noted Time PHQ-9 Depression Total Score: 0 04/30/19 21 9:32 AM BLUEPRINT PROCESSOR documented as of this encounter Care Teams Periodicals Library Assistant Relationship Specialty Start Date End Date Jaden Thakur DO [address] [place] [id number] PCP - General FAMILY PRACTICE 04/10/19 documented as of this encounter
--- OUTSIDE RECORDS SUMMARY | 2024-03-19 20:49 | XMS_ITS | Encounter Summary ---
Author Organization [facility] Address [address] [place] [address]. 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 * Pilar Medina MA - 12/19/2023 1:35 PM CDT The patient is still waiting on an appt for the CVA neurologist. She has not established with that neurologist yet. The neuro for seizures/migraines have signed off. * Jaden Thakur, - 12/18/2023 1:34 PM CDT As long as all neurologists she is actively seeing have cleared her, then we can clear. If one of her doctors has not cleared her, I would like to know who it was and why, as I do not have any documentation stating she was not cleared. * Pilar Medina MA - 12/18/2023 1:04 PM CDT Spoke with Ana Metcalf She states they are needing clearance from PCP from a CVA stand point as long as PCP is comfortable doing so. They have contacted all other neuro clinics needed and they are only waiting on CVA clearance. OK to clear from CVA standpoint? [id number] * Jaden Thakur DO - 12/14/2023 3:00 PM CDT She is considered an acceptable medical risk from my perspective. Per pt's orthopedic doctor Dr. Yoon evaluation on 11/02/23: Patient has a complex medical history we discussed arthroscopic labral debridement biceps tenotomywe will have her cleared by her PCP and neurologist she currently does not have motor function in her left upper extremity in the surgery will not improve that hopefully the shoulder debridement would help her shoulder pain and night pain. I would also agree that neurology clearance is appropriate prior to procedure. * Pilar Medina MA - 12/14/2023 2:52 PM CDT Ok to give clearance per [facility]EN[facility] note: Discussion & Summary: Recommend obtaining CBC, CMP, [...] candidate for triptan therapy given previous CVA. Will have pt f/uin 3 months or sooner if needed. Pt v/u. * Hodan Balbuena - 12/14/2023 1:59 PM CDT Ana Culver called in to clarify pts surgical clearance, Dr office under impression PCP wants her to becleared by a neurologist. Pt believes she has already been cleared. Please advise documented in this encounter Plan of Treatment Not on file documented as of this encounter Visit Diagnoses Not on filedocumented in this encounter Additional Health Concerns Assessment Noted Time PHQ-9 Depression Total Score: 0 04/30/19 21 9:32 AM EXPORT MANAGER documented as of this encounter Care Teams Protective Signal Repairer Relationship Specialty Start Date End Date Jaden Thakur DO [address] [place] [id number] PCP - General FAMILY PRACTICE 04/10/19 documented as of this encounter
--- OUTSIDE RECORDS SUMMARY | 2024-03-19 20:49 | XMS_ITS | Encounter Summary ---
Author Organization [facility] Address [address] [place] [address]. 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
--- OUTSIDE RECORDS SUMMARY | 2024-03-19 20:49 | XMS_ITS | Encounter Summary ---
Author Organization [facility] Address [address] [place] [address]. [place], [place] [address] [place] [address] Care Team Providers Care Dirt Shoveler Name Role Phone Jaden Thakur DO Primary Care Provider + Reason for Visit * Reason Comments Cva The patient presents for a 2 month follow up. The patient has started PT and is working on walking with a cane. The patient states she is having pain in her left arm for 1 week. Encounter Details Date Type Department Care Team (Late st Contact Info) Description 08/10/2023 10:40 AM CDT Office Visit [facility] Family & Internal Medicine [address] [address] Jaden Thakur DO [address] [place] [address] [phone] Cva (The patient presents for a 2 month follow up. The patient has started PT and is working on walking with a cane. The patient states she is having pain in her left arm for 1 week. 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 file documented as of this encounter Last Filed Vital Signs Vital Sign Reading Time Taken Comments Blood Pressure 120/72 08/10/2023 11:00 AM CDT Pulse 94 08/10/2023 11:00 AM CDT Temperature 36.3 ??C (97.3 ??F) 08/10/2023 1 1:00 AM CDT Respiratory Rate 16 08/10/2023 11:0 0 AM CDT Oxygen Saturation 98% 08/10/2023 11: 00 AM CDT Inhaled Oxygen Concentration - - Weight 106.9 kg (235 lb 9.6 oz) 024 11:00 AM CDT Height 162.6 cm (5' 4 ) 08/10/2023 11:0 0 AM CDT Body Mass Index 40.44 08/10/2023 11:00 AM CDT documented in this encounter Progress Notes * Jaden Thakur, - 08/10/2023 10:40 AM CDT Images from the original note were not included. GENERAL OFFICE VISIT Encounter Date: 08/10/2023 Chief Complaint: 42-year-old female presents for Cva (The patient presents for a 2 month follow up. The patient has started PT and is working on walking with a cane. The patient states she is having pain in her left arm for 1 week. ) History of Present Illness: Pt presents for 2 month follow-up. Pt notes she has some swelling and pain in the LUE. She does not move it frequently. She notes thatwithout support it will be in more pain. No new known injury. Pt did not see an orthopedic doctor for the subluxation. Pt is doing an online program for Zepbound that is compounded. She is doing okay with this at this time. Pt has not wanted to change her Flexeril and baclofen due to hip pain being manageable. Pt's hip pain is improving and stable. Pt was attempted to be weaned from Keppra. However, she had a seizure after that. She had an EEG that was acceptable and will see neurology in the future. Pt had Depakote added as well for her headaches. Pt saw cardiology who will likely do a loop recorder through the EP. Pt was considered for second opinion through [facility] but will not be able to do so. Pt notes difficulty sleeping. She will wake up after about 3-4 hours. Nothing in particular makes her feel as though she is waking up. Pt does take hydroxyzine every night before bed. ROS: Review of Systems Constitutional: Negative for fever. HENT: See HPI Respiratory: Negative for shortness of breath. Genitourinary: Stable Musculoskeletal: See HPI Neurological: See HPI Medications: Current Outpatient Medications on File Prior to Visit Medication Sig TRAYO LUZ ZHU, Apply 1 Device topically daily. aspirin 325 MG tablet Take 1 tablet (325 mg total) by mouth daily. baclofen (LIORESAL) 5 MG tablet Take 1 tab by mouth daily. busPIRone (BUSPAR) 5 MG tablet Take 1 tablet (5 mg total) by mouth 2 (two) times daily. Cetirizine HCl 10 MG TABLET DISPERSIBLE Take 1 tablet (10 mg total) by mouth every evening. Cholecalciferol (VITAMIN D3) 50 MCG (2000 UT) Tab Take by mouth daily. cyclobenzaprine (FLEXERIL) 5 MG tablet Take 1 tablet (5 mg total) by mouth 3 (three) times daily. divalproex EC (DEPAKOTE) 250 MG tablet Take 1 tablet (250 mg total) by mouth 2 (two) times daily. HYDROcodone-acetaminophen (NORCO) 10-325 MG tablet Take 0.5-1 tablets by mouth every 6 (six) hours as needed for Pain. Indications: Chronic Pain hydrOXYzine (ATARAX) 25 MG tablet Take 1 tablet (25 mg total) by mouth every 8 (eight) hours as needed. levETIRAcetam (KEPPRA) 500 MG tablet Take 1 tablet (500 mg total) by mouth 2 (two) times daily. metoprolol tartrate (LOPRESSOR) 25 MG tablet Take 1 tablet (25 mg total) by mouth 2 (two) times daily. naloxone (NARCAN) 4 MG/0.1ML nasal spray 1 spray by Nasal route as needed for Opioid reversal. may repeat every 2 to 3 minutes in alternating nostrils until medical assistance becomes available pantoprazole EC (PROTONIX) 40 MG tablet Take 1 tablet (40 mg total) by mouth daily. polyethylene glycol (GLYCOLAX) packet 240 mLs (17 g total). SIT TO STAND LIFT, DME, 1 Device by Does not apply route as needed. Order for Electric Sit to Stand tirzepatide (ZEPBOUND) 2.5 MG/0.5ML injection Inject 2.5 [...] to embolism of right middle cerebral artery ([facility]) Generalized seizure ([facility]) Past Medical History: Diagnosis Date Allergy Common femoral artery injury, right, subsequent encounter 12/29/2022 GERD (gastroesophageal reflux disease) Migraine 10/19/2022 Presence of externally removable percutaneous endoscopic gastrostomy (PEG) tube ([facility]) 2022 Received intravenous tissue plasminogen activator (tPA) in emergency department 10/19/2022 Trochanteric bursitis of left hip 12/08/2022 Past Surgical History: Procedure Laterality Date SECTION x 2 CHOLECYSTECTOMY SCREENING COLONOSCOPY August 2021, repeat in 5 years Social History Socioeconomic History Marital status: Number of children: 2 Occupational History 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Tobacco Use Smoking status: Former Current packs/day: 0.00 Average packs/day: 0.5 packs/day for 10.0 years (5.0 ttl pk-yrs) Types: Cigarettes Start date: 03/12/2005 Quit date: 03/12/2015 Years since quittin.4 Smokeless tobacco: Never Substance and Sexual Activity Alcohol use: Yes Comment: 2 drinks every 6 months Drug use: Never Sexual activity: Yes Partners: Male control/protection: OCP Social Determinants of Health Financial Resource Strain: Low Risk (01/10/2023) Received from [facility] Overall Financial Resource Strain (CARDIA) Difficulty of Paying Living Expenses: Not hard at all Food Insecurity: No Food Insecurity (01/10/2023) Received from [facility] Cash Check Card Hunger Vital Sign Worried About Running Out of Food in the Last Year: Never true Ran Out of Food in the Last Year: Never true Transportation Needs: No Transportation Needs (01/10/2023) Received from [facility] Cash Check Card PRAPARE - Transportation Lack of Transportation (Medical): No Lack of Transportation (Non-Medical): No Stress: No Stress Concern Present (01/10/2023) Received from [facility] Cash Check Card [place] [facility] - Occupational Stress Questionnaire Feeling of Stress : Only a little Housing Stability: Low Risk (01/10/2023) Received from [facility] Cash Check Card Housing Stability Vital Sign Unable to Pay for Housing in the Last Year: No Number of Places Lived in the Last Year: 1 In the last 12 months, was there a time when you did not have a steady place to sleep or slept in the villageselter (including now)?: No Family History Problem Relation Name Age of Onset Hypertension Mother Reny Disla Thyroid Mother Reny Disla Diabetes Mother Reny Disla Alcohol Abuse Father Adam Martin Family Status Relation Name Status Mother Reny Disla (Not Specified) Father Adam Martin (Not Specified) No partnership data on file Objective: Filed Vitals: 08/10/23 1100 BP: 120/72 Pulse: 94 Resp: 16 Temp: 97.3 ??F (36.3 ??C) TempSrc: Skin SpO2: 98% Weight: 106.9 kg (235 lb 9.6 oz) Height: 1.626 m (5' 4 ) Physical Exam Vitals and nursing note reviewed. Constitutional: Comments: Sitting in wheelchair comfortably, was standing today upon entering room HENT: Head: Comments: Cranial abnormality consistent with surgical history, continuing to improve Right Ear: External ear normal. Left Ear: External ear normal. Eyes: Conjunctiva/sclera: Conjunctivae normal. Cardiovascular: Rate and Rhythm: Normal rate and regular rhythm. Heart sounds: Normal heart sounds. Pulmonary: Effort: Pulmonary effort is normal. Breath sounds: Normal breath sounds. Skin: Comments: Circumference left upper arm 13.5 in, right upper arm 15.25 in Neurological: Mental Status: She is alert. Comments: Full exam deferred today but generally improved again today Assessment & Plan: Consuelo was seen today for cva . Diagnoses and all orders for this visit: Acute pain of left shoulder - XR SHOULDER LT 3V; Future - predniSONE (DELTASONE) 20 MG tablet; Take 3 tablets for three days, then take 2 tablets for threedays, then take 1 tablet for three days Acute low back pain without sciatica, unspecified back pain laterality - DULoxetine (CYMBALTA) 60 MG capsule; Take 1 capsule (60 mg total) by mouth daily. Subluxation of left shoulder joint, subsequent encounter Cerebrovascular accident (CVA), unspecified mechanism ([facility]) BMI 40.0-44.9, adult ([facility]) Generalized seizure ([facility]) Insomnia, unspecified type Chronic left hip pain Discussion & Summary: Will continue chronic medications today as per above. Will send out prednisone for arm pain and obtain x-ray; no acute signs of DVT today recommended conservative treatment for insomnia given patient's other medications that she is currently taking. Can continue tirzepatide through online physicianat this time. Continue follow-up with all specialist. Will have patient follow-up in 3 months or sooner if needed. Patient verbalized understanding. I personally spent a total of 41 minutes on the day of the encounter. This includes jdgn-ul-gabs and ztj-wnti-yf-face time I provided on the day of the encounter & excludes time spent performing separately reportable services. Jaden Thakur DO documented in this encounter Plan of Treatment Not on file documented as of this encounter Results * XR SHOULDER LT 3V (08/10/2023 11:52 AM CDT) Anatomical Region Laterality Modality Shoulder Radiographic Irene ging 08/10/2023 11:4 2 AM CDT Narrative 08/12/2023 12:20 AM CDT Examination: XR SHOULDER LT 3V Exam time: 08/10/2023 11:42 AM Clinical history: PAIN X1 WEEK, HX OF SUBLUXATION Comparison: No comparison. Technique: 3 views of the left shoulder. Findings: No acute fracture is identified. There is slight widening of the joint space with inferior positioning of the humeral head in relation to the glenoid on the external rotation view. This could be related to shoulder instability or possibly a large joint effusion. The AC joint space is preserved. No destructive bone lesion is seen. The included left chest appears unremarkable. IMPRESSION: 1. ??No acute osseous abnormality identified. 2. ??Slight widening of the joint space with inferior positioning of the humeral head in relation to the glenoid on the external rotation view. This could be related to shoulder instability or possibly a large joint effusion. Referred By: ?? Interpreted By: Jacques Gillis MD, 08/12/2023 12:19 AM Procedure Note Jacques Gillis MD - 08/12/2023 Examination: XR SHOULDER LT 3V Exam time: 08/10/2023 11:42 AM Clinical history: PAIN X1 WEEK, HX OF SUBLUXATION Comparison: No comparison. Technique: 3 views of the left shoulder. Findings: No acute fracture is identified. There is slight widening of the jointspace with inferior positioning of the humeral head in relation to theglenoid on the external rotation view. This could be related to shoulderinstability or possibly a large joint effusion. The AC joint space ispreserved. No destructive bone lesion is seen. The included left chestappears unremarkable. IMPRESSION: 1. No acute osseous abnormality identified. 2. Slight widening of the joint space with inferior positioning of thehumeral head in relation to the glenoid on the external rotation view.This could be related to shoulder instability or possibly a large jointeffusion. Referred By: Interpreted By: Jacques Gillis MD, 08/12/2023 12:19 AM Jaden Thakur DO GENERAL IMAGING Final Re sult documented in this encounter Visit Diagnoses Diagnosis Acute pain of left shoulder- Primary Acute low back pain without sciatica, unspecified back pain laterality Subluxation of left shoulder joint, subsequent encounter Cerebrovascular accident (CVA), unspecified mechanism ([facility]) BMI 40.0-44.9, adult ([facility]) Body Mass Index 40.0-44.9, adult Generalized seizure ([facility]) Other convulsions Insomnia, unspecified type Chronic left hip pain Pain in joint, pelvic region and thigh documented in this encounter Additional Health Concerns Assessment Noted Time PHQ-9 Depression Total Score: 0 04/30/19 21 9:32 AM BOAT 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
--- OUTSIDE RECORDS SUMMARY | 2024-03-19 20:49 | XMS_ITS | Encounter Summary ---
Author Organization [facility] Address [address] [place] [address]. 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
--- OUTSIDE RECORDS SUMMARY | 2024-03-19 20:49 | XMS_ITS | Encounter Summary ---
Author Organization [facility] Address [address] [place] [address]. [place], [place] [id number] [place] [address] Care Team Providers Care Golf Course Architect Name Role Phone Jaden Thakur DO Primary Care Provider + Reason for Visit * Reason Onset Date Comments Prior Authorization 11/15/2023 Nurtec 75mg Encounter Details Date Type Department Care Team (Late st Contact Info) Description 11/15/2023 Telephone [facility] Family & Internal Medicine [facility] [address] [place] [address] Jaden Thakur DO [address] [place], [place] [phone] Prior Authorization (Nurtec 75mg ) Social History Tobacco Use Types Packs/Day [...] on file 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 Call us at Outcome Approved on November 14 by fruux 2016 CaseId:[id number];Status:Approved;Review Type:Prior Auth;Coverage Start Date:10/16/2023;Coverage End Date:11/14/2024; Authorization Expiration Date: 11/13/2024 * Deedee Reilly MA - 11/15/2023 3:45 PM CDT PA pending via cmm ([id number]) for Nurtec 75mg, la,rma documented in this encounter Plan of Treatment Not on file documented as of this encounter Visit Diagnoses Not on filedocumented in this encounter Additional Health Concerns Assessment Noted Time PHQ-9 Depression Total Score: 0 04/30/19 21 9:32 AM NATURAL FOODS CLERK documented as of this encounter Care Teams Golf Course Architect Relationship Specialty Start Date End Date Jaden Thakur DO [address] [place] [address] PCP - General FAMILY PRACTICE 04/10/19 documented as of this encounter
--- OUTSIDE RECORDS SUMMARY | 2024-03-19 20:49 | XMS_ITS | Encounter Summary ---
Author Organization [facility] Address [address] [place] [address]. 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 Pt should be aware that sometimes supplements will contain ingredients that are in the supplement but aren't reported on the nutrition facts. documented in this encounter Plan of Treatment Not on file documented as of this encounter Visit Diagnoses Not on filedocumented in this encounter Additional Health Concerns Assessment Noted Time PHQ-9 Depression Total Score: 0 04/30/19 21 9:32 AM NOISE TESTER documented as of this encounter Care Teams Scientific Glass Blower Relationship Specialty Start Date End Date Jaden Thakur DO [address] [place] [address] PCP - General FAMILY PRACTICE 04/10/19 documented as of this encounter
--- OUTSIDE RECORDS SUMMARY | 2024-03-19 20:49 | XMS_ITS | Encounter Summary ---
Author Organization [facility] Address [address] [place] [address]. 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
--- OUTSIDE RECORDS SUMMARY | 2024-03-19 20:49 | XMS_ITS | Encounter Summary ---
Author Organization [facility] Address [address] [place] [address]. 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
--- OUTSIDE RECORDS SUMMARY | 2024-03-19 20:49 | XMS_ITS ---
Author Organization [facility] Address [address] [place] [address] Care Team Providers Care Voltmeter Operator Name Role Phone Jean Joy MD Unavailable Jaden Thakur DO Primary Care Provider + PAC Admission - [facility] Status:Closed (Closed) Start date:11/20/2022 Enrollment date:11/20/2022 Enrollment reason:Acute Discharge End date:11/20/2022 Close reason:Attribution Challenge Continued Care and Services Coordination
--- OUTSIDE RECORDS SUMMARY | 2024-03-19 20:49 | XMS_ITS | Encounter Summary ---
Author Organization [facility] Address [address] [place] [address]. [place], [place] [address] [place] [address] Care Team Providers Care Co Op Name Role Phone Jaden Thakur DO Primary Care Provider + Encounter Details Date Type Department Care Team (Late st Contact Info) Description 11/21/2023 iLiket Message Enc [facility] Family & Internal Medicine [facility] [address] [place] [address] Jaden Thakur DO [address] [place], [place] [phone] Musclerelaxer Social History Tobacco Use Types Packs/Day Years [...] on file Legal Sex Female 2:33 PM BELT SPLICER Gender Identity Not on file Sexual Orientation Not on file 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 Can also increase baclofen to 10 mg at same frequency. 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
--- OUTSIDE RECORDS SUMMARY | 2024-03-19 20:49 | XMS_ITS | Encounter Summary ---
Author Organization [facility] Address [address] [place] [address]. 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
--- OUTSIDE RECORDS SUMMARY | 2024-03-19 20:49 | XMS_ITS | Encounter Summary ---
Author Organization [facility] Address [address] [place] [address]. [place], [place] [address] [place] [address] Care Team Providers Care Funeral Service Apprentice Name Role Phone Jaden Thakur DO Primary Care Provider + Encounter Details Date Type Department Care Team (Late st Contact Info) Description 12/05/2023 AUM Cardiovasculart Message Enc 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 * Emir Bowens, RTR - 12/06/2023 1:32 PM CDT Okay for another referral?? * Emir Bowens, RTR - 12/06/2023 1:32 PM CDTFrom: Consuelo Darby To: Dr. Jaden Thakur Sent: 12/05/2023 1:25 PM CDT Subject: Neurology I cannot believe the trouble I???m having with the neurology department at [facility], but wondering if there???s anyway you could send another referral over specifically for a stroke neurologist they won???t just let me schedule one so now I have to have three neurologist one for seizures one for stroke, and one for he adaches If you could send one over I would really appreciate it. Iknow I gave the fax number and the previous message if you need it if you could let me know when itsent I would really really appreciate it. Thank you guys so much. documented in this encounter Plan of Treatment Not on file documented as of this encounter Visit Diagnoses Not on filedocumented in this encounter Additional Health Concerns Assessment Noted Time PHQ-9 Depression Total Score: 0 04/30/19 21 9:32 AM LINUX NETWORK SYSTEMS ADMINISTRATOR documented as of this encounter Care Teams Funeral Service Apprentice Relationship Specialty Start Date End Date Jaden Thakur DO [address] [place] [address] PCP - General FAMILY PRACTICE 04/10/19 documented as of this encounter
--- OUTSIDE RECORDS SUMMARY | 2024-03-19 20:49 | XMS_ITS | Encounter Summary ---
Author Organization [facility] Address [address] [place] [address]. [place], [place] [address] [place] [address] Care Team Providers Care Anesthesia Resident Name Role Phone Jaden Thakur DO Primary Care Provider + Encounter Details Date Type Department Care Team (Latest Contact Info) Description 11/06/2023 Scan HEALTH INFO SRVCS Scanned, Doc Med [...] on file Legal Sex Female 2:33 PM HORSE SHOW MANAGER Gender Identity Not on file Sexual [...] Total Score: 0 04/30/19 21 9:32 AM HORSE SHOW MANAGER documented as of this encounter Care Teams Anesthesia Resident Relationship Specialty Start Date End Date Jaden Thakur DO [address] [place] [address] PCP - General FAMILY PRACTICE 04/10/19 documented as of this encounter
--- OUTSIDE RECORDS SUMMARY | 2024-03-19 20:49 | XMS_ITS | Encounter Summary ---
Author Organization [facility] Address [address] [place] [address]. [address] [address] Care Team Providers Care Superintendent Laundry Name Role Phone Jaden Thakur DO Primary Care Provider + Reason for Visit * Reason Onset Date Comments Medication Reconciliation 07/25/2023 Encounter Details Date Type Department Care Team (Late st Contact Info) Description 07/25/2023 Telephone [facility] Medical Group Family & Internal Medicine [facility] [address] [place] [phone] Jaden Thakur DO [address] [place] [address] Medication Reconciliation Social History Tobacco Use Types Packs/Day Years [...] on file Legal Sex Female 2:33 PM FOREIGN DIPLOMAT Gender Identity Not on file Sexual Orientation Not on file 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 Advised patientDr. Reyes would like to try and discontinue the flexeril. The patient v/u and will keep office updated.Called pharmacy to advise. Spoke with rj szymanski and advised her of the info above. * Jaden Thakur DO - 07/26/2023 9:49 AM CDT If she wasn't able to wean off of baclofen, I'd stay on that and stop flexeril if able. * Pilar Medina MA - 07/26/2023 9:38 AM CDT The patient is on baclofen and flexeril. Per HENRI the patient was unable to wean off baclofen. Please advise if you would like patient to continue both medications listed. * ACE Anderson - 07/25/2023 7:40 AM CDT Message from pharmacy: Which muscle relaxor is the patient supposed to be on? documented in this encounter Plan of Treatment Not on file documented as of this encounter Visit Diagnoses Not on filedocumented in this encounter Additional Health Concerns Assessment Noted Time PHQ-9 Depression Total Score: 0 04/30/19 21 9:32 AM FOREIGN DIPLOMAT documented as of this encounter Care Teams Superintendent Laundry Relationship Specialty Start Date End Date Jaden Thakur DO [address] [place] [address] PCP - General FAMILY PRACTICE 04/10/19 documented as of this encounter
--- OUTSIDE RECORDS SUMMARY | 2024-03-19 20:50 | XMS_ITS | Encounter Summary ---
Author Organization [facility] Address [address] [place] [address]. [place], [place] [address] [place] [address] Care Team Providers Care Nuclear Medicine Tech Name Role Phone Jaden Thakur DO Primary Care Provider + Reason for Referral * Imaging (Routine) - Closed Specialty Diagnoses / Procedures Referred By Contac t Referred To Contact RADIOLOGY Diagnoses Chronic left hip pain Cerebrovascular accident (CVA) due to thrombosis of right middle cerebral artery ([facility]/HCC HHS/HCC) Procedures MRI HIP LT WO CON Jaden Thakur DO [address] [place] [address] Phone: tel: fax: Referral ID Status Reason Start Date Expiration Date Visits Re quested Visits Authorized [id number] Closed 02/12/2023 06/12/2023 1 1 R OPTIC ASSEMBLY WORKER Reason for Visit * Reason Onset Date Comments Question 02/05/2023 Encounter Details Date Type Department Care Team (Late st Contact Info) Description 02/05/2023 MyChart Message Enc [facility] Medical Group Family & Internal Medicine - [place] [address] [place] [address] Jaden Thakur DO [address] [place], [place] [id number] [place] Social History Tobacco Use Types Packs/Day Years [...] Date Recorded Patient Health Questionnaire-2 Score 0 06/13/2022 Comments No Sex and Gender Information Value Date Recorded Sex Assigned at Not on file Legal Sex Female 2:33 PM FIBER OPTIC ASSEMBLY WORKER Gender Identity Not on file Sexual Orientation Not on file 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 Opportunity given for all questions to be answered, no further needs voiced at this time. LL-02/06/23 R OPTIC ASSEMBLY WORKER * Jaden Thakur DO - 02/06/2023 3:57 PM CST MRI order is correct, and reasoning and diagnosis association completed. Please clarify necessary MRI questions with patient prior to signing. R OPTIC ASSEMBLY WORKER * Laura Becker RN - 02/06/2023 3:50 PM CST Patient notified and verbalized understanding. Patient would still like the MRI ordered. [facility] Opportunity given for all questions to be answered, no further needs voiced at this time. LL-02/06/23 R OPTIC ASSEMBLY WORKER * Jaden Thakur DO - 02/05/2023 4:57 PM CST I don't necessarily have an issue with ordering it, but it may not be paid for by insurance as theycan be very picky. We could still try to order if pt would like. R OPTIC ASSEMBLY WORKER documented in this encounter Plan of Treatment Scheduled Orders Name Type Priority Associated Diagnoses Orde r Schedule MRI HIP LT WO CON MRI Routine Chronic left hip pain Cerebrovascular accident (CVA) due to thrombosis of right middle cerebral artery (CMS/HCC HHS/HCC) Expected: 02/06/2023, Expires: 02/07/2024 documented as of this encounter Visit Diagnoses Diagnosis Chronic left hip pain- Primary Pain in joint, pelvic region and thigh Cerebrovascular accident (CVA) due to thrombosis of right middle cerebral artery (CMS/HCC HHS/HCC) documented in this encounter Additional Health Concerns Assessment Noted Time PHQ-9 Depression Total Score: 0 04/30/19 21 9:32 AM FIBER OPTIC ASSEMBLY WORKER documented as of this encounter Care Teams Nuclear Medicine Tech Relationship Specialty Start Date End Date Jaden Thakur DO [address] [place] [address] PCP - General FAMILY PRACTICE 04/10/19 documented as of this encounter
--- OUTSIDE RECORDS SUMMARY | 2024-03-19 20:50 | XMS_ITS | Encounter Summary ---
Author Organization [facility] Address [address] [place] [address]. [place], [place] [address] [place] [address] Care Team Providers Care Equipment Washer Name Role Phone Jaden Thakur Joe RUBIN Primary Care Provider + Encounter Details Date Type Department Care Team (Late st Contact Info) Description 01/09/2023 Cognotion Message Enc [facility] Medical Group Family Medicine - [place] [address] [place] [address] [facility]Jane, [facility] Provider Screening Social History Tobacco Use Types Packs/Day Years [...] on file Legal Sex Female 2:33 PM TONAL REGULATOR Gender Identity Not on file Sexual Orientation [...] Total Score: 0 04/30/19 21 9:32 AM TONAL REGULATOR documented as of this encounter Care Teams Equipment Washer Relationship Specialty Start Date End Date Jaden Thakur DO [address] [place] [address] PCP - General FAMILY PRACTICE 04/10/19 documented as of this encounter
--- OUTSIDE RECORDS SUMMARY | 2024-03-19 20:50 | XMS_ITS | Encounter Summary ---
Author Organization [facility] Address [address] [place] [address]. [place], [place] [address] [place] [address] Care Team Providers Care Cage Operator Name Role Phone Jaden Thakur DO Primary Care Provider + Reason for Visit * Reason Onset Date Comments Results 02/20/2023 Encounter Details Date Type Department Care Team (Late st Contact Info) Description 02/20/2023 Telephone [facility] Medical Group Family & Internal Medicine [facility] [address] [place] [address] Jaden Thakur DO [address] [place] [address] Results Social History Tobacco Use Types Packs/Day [...] on file Legal Sex Female 2:33 PM HEALTH/SAFETY JOB TITLES Gender Identity Not on file Sexual Orientation Not on file 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 If she feels better after taking the abx, she can finish it. TH/SAFETY JOB TITLES documented in this encounter Plan of Treatment Not on file documented as of this encounter Visit Diagnoses Not on filedocumented in this encounter Additional Health Concerns Assessment Noted Time PHQ-9 Depression Total Score: 0 04/30/19 21 9:32 AM HEALTH/SAFETY JOB TITLES documented as of this encounter Care Teams Cage Operator Relationship Specialty Start Date End Date Jaden Thakur DO [address] [place] [address] PCP - General FAMILY PRACTICE 04/10/19 documented as of this encounter
--- OUTSIDE RECORDS SUMMARY | 2024-03-19 20:50 | XMS_ITS | Encounter Summary ---
Author Organization [facility] Address [address] [place] [address]. [place], [place] [address] [place] [address] Care Team Providers Care Correspondence Section Supervisor Name Role Phone Jaedn Thakur DO Primary Care Provider + Encounter Details Date Type Department Care Team (Latest Contact Info) Description 02/15/2023 Travel Social History Tobacco Use Types Packs/Day [...] on file Legal Sex Female 2:33 PM EMPLOYEE BENEFITS MANAGER Gender Identity Not on file Sexual [...] Total Score: 0 04/30/19 21 9:32 AM EMPLOYEE BENEFITS MANAGER documented as of this encounter Care Teams Correspondence Section Supervisor Relationship Specialty Start Date End Date Jaden Thakur DO [address] [place] [address] PCP - General FAMILY PRACTICE 04/10/19 documented as of this encounter
--- OUTSIDE RECORDS SUMMARY | 2024-03-19 20:50 | XMS_ITS | Encounter Summary ---
Author Organization [facility] Address [address] [place] [address]. [address] [address] Care Team Providers Care Diesel Truck Crane Operator Name Role Phone Jaden Thakur DO Primary Care Provider + Reason for Visit * Reason Onset Date Comments TCM 01/16/2023 Encounter Details Date Type Department Care Team (Late st Contact Info) Description 01/16/[address] 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 Faxed over for copy. Patient discharged from: 01/10-01/11/23 Discharge diagnosis/diagnoses: Craniotomy Procedures performed while inpatient: Craniotomy Begin the medication reconciliation process (completed at first face to face visit) Patient is still having pain in that left hip. PCP gave verbal order to sen out Naproxen since patient is no longer on blood thinner. Any follow up services needed: PCP and surgeon Education on self management: Assess adherence with treatment (medication) regimen and provide support. Does patient have access to care and services (rides, etc)? Yes, per Appointment scheduled for follow up in the office (7 days if high complexity or within 14 days for medium complexity) Appointment Date:01/25/23 Time:10:40 DIONISIO JORDAN RN UNT RETENTION REPRESENTATIVE UNT RETENTION REPRESENTATIVE UNT RETENTION REPRESENTATIVE * Dionisio Jordan RN - 01/16/2023 12:22 PM CST Attempted to call the patient fro [facility], was unable to reach them at this time. Left a message requesting a call back. LL-01/16/23 UNT RETENTION REPRESENTATIVE documented in this encounter Plan of Treatment Not on file documented as of this encounter Visit Diagnoses Diagnosis Hip pain- Primary Pain in joint, pelvic region and thigh documented in this encounter Additional Health Concerns Assessment Noted Time PHQ-9 Depression Total Score: 0 04/30/19 21 9:32 AM ACCOUNT RETENTION REPRESENTATIVE documented as of this encounter Care Teams Diesel Truck Crane Operator Relationship Specialty Start Date End Date Jaden Thakur DO [address] [place] [address] PCP - General FAMILY PRACTICE 04/10/19 documented as of this encounter
--- OUTSIDE RECORDS SUMMARY | 2024-03-19 20:50 | XMS_ITS | Encounter Summary ---
Author Organization [facility] Address [address] [place] [address]. [place], [place] [address] [place] [address] Care Team Providers Care Basting Cleaner Name Role Phone Jaden Thakur DO Primary Care Provider + Reason for Visit * Reason Onset Date Comments Rash 01/11/2022 Encounter Details Date Type Department Care Team (Late st Contact Info) Description 01/11/2022 [place] Systemst Message Enc [facility] Medical Group Family & Internal Medicine [facility] [address] [place] [address] Jaden Thakur DO [address] [place] [address] rash Social History Tobacco Use Types Packs/Day Years Used Date Smoking Tobacco: Former Cigarettes 0.5 10 0 03/12/2005 - 03/12/2015 Smokeless Tobacco: Never Alcohol Use Standard Drinks/Week Comments Yes 0 (1 standard drink = 0.6 oz pur e alcohol) AUDIT-C Answer Date Recorded Frequency of Alcohol Consumption Monthly or less 04/10/2019 Average Number of Drinks 1 or 2 020 Frequency of Binge Drinking Never 03/14 PHQ-2 Answer Date Recorded PHQ-2 Score - If the patient scores above 3, please move on to questions 3-9 0 06/12/2021 Comments No Sex and Gender Information Value Date Recorded Sex Assigned at Not on file Legal Sex Female 2:33 PM CAREER DEVELOPMENT DIRECTOR Gender Identity Not on file Sexual Orientation Not on file 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 * Jaden Thakur DO - 01/11/2022 2:54 PM CDT OK to do medrol dose pack. documented in this encounter Plan of Treatment Not on file documented as of this encounter Visit Diagnoses Diagnosis Rash- Primary Rash and other nonspecific skin eruption documented in this encounter Additional Health Concerns Assessment Noted Time PHQ-9 Depression Total Score: 0 04/30/19 21 9:32 AM CAREER DEVELOPMENT DIRECTOR documented as of this encounter Care Teams Basting Cleaner Relationship Specialty Start Date End Date Jaden Thakur DO [address] [place] [address] PCP - General FAMILY PRACTICE 04/10/19 documented as of this encounter
--- OUTSIDE RECORDS SUMMARY | 2024-03-19 20:50 | XMS_ITS | Encounter Summary ---
Author Organization [facility] Address [address] [place] [address]. [place], [place] [id number] [place] [address] Care Team Providers Care Centrifugal Supervisor Name Role Phone Jaden Thakur DO Primary Care Provider + Reason for Referral * Consultation (Routine) - Closed Specialty Diagnoses / Procedures Referred By Contac t Referred To Contact SUPERVISOR HAND WORKERS Diagnoses Cerebrovascular accident (CVA) due to thrombosis of right middle cerebral artery ([facility]/HCC HHS/HCC) Subluxation of left shoulder joint, subsequent encounter Current use of skilled nursing anticoagulation Procedures OFFICE/OUTPATIENT NEW LOW MDM 30-44 MINUTES OFFICE/OUTPT VISIT,NEW,LEVL IV OFFICE/OUTPT VISIT,NEW,LEVL V OFFICE/OUTPT VISIT,EST,LEVL III OFFICE/OUTPT VISIT,EST,LEVL IV OFFICE/OUTPT VISIT,EST,LEVL V Jaden Thakur DO [address] [place] [address] Phone: tel: fax: Cheli Valle, RABBET OPERATOR [address] [place] [address] Phone: tel: fax: Referral ID Status Reason Start Date Expiration Date V isits Requested Visits Authorized [id number] Closed Specialty Services 12/22/2022 01/21/2024 1 1 Reason for Visit * Reason Comments TCM [facility] 10/19/2022- begg ing of . [facility]'s discharged- 12/14/2022OT paperwork needs filled out. 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 file documented as of this encounter Last Filed Vital Signs Vital Sign Reading Time Taken Comments Blood Pressure 105/66 12/22/2022 2:16 PM CDT Pulse 78 12/22/2022 2:16 PM CDT Temperature 37.3 ??C (99.1 ??F) 12/22/2022 2:16 PM CD T Respiratory Rate 16 12/22/2022 2:16 PM CDT Oxygen Saturation 97% 12/22/2022 2:16 PM CDT Inhaled Oxygen Concentration - - Weight 72.6 kg (160 lb) 12/22/2022 2:16 PM CDT Height 162.6 cm (5' 4 ) 12/22/2022 2:16 PM CDT Body Mass Index 27.46 12/22/2022 2:16 PM CDT documented in this encounter Progress Notes * Pilar Franco MA - 12/22/2022 2:20 PM CDTAddended by: PILAR FRANCO on: 12/25/2022 08:01 AM Modules accepted: Orders * Jaden Thakur DO - 12/22/2022 2:20 PM CDT Images from the original note were not included. GENERAL OFFICE VISIT Encounter Date: 12/22/2022 Chief Complaint: 42-year-old female presents for TCM ([facility] 10/19/2022- begging of November/[place] discharged- 12/14/2022/OT paperwork needs filled out.) HPI: Pt presents for hospital follow-up. Pt had a CVA on 10/19/22. Per hospital course in discharge summary from Karishma Ojeda written on 11/17/22: Hospital Course: Consuelo Darby is a 41yo woman with hx of hemiplegic migraine, GERD, GENESIS. who developed acute onsetL sided weakness, L-sided sensory deficits, and dysarthria. L sided weakness resolved in route and dysarthria improved in route. On arrival patient noted to hae L gaze plasy, L hemainopsia, mild dysarthria, and extinction. NIHSS: 7 on arrival on 10/19/22. S/p TNK and TICI2b revascularization of the R MCA M1 occlusion. Repeat CTH showed edema in R MCA territory. On 10/20/22 pt underwent hemicraniectomy, post-op CTH showing stable midline shift. ESUS work-up initiated. Initial hypercoag work up negative (may plan to repeat in 2 months) but further clinical course complicated as below: -10/23- SARAH concerning for aortic cusp vegetations. [...] to cefe + vanc + doxycycline ); ramriez cultures done and further work-up with imaging [...] Neurology, CTS, Cardiology, Vascular surgery, Infectious diseases, Urology Pt was in rehab from 11/17/22 to 12/14/22. Pt is doing PT, OT, and speech therapy. Pt had a PEG tube; they removed the PEG tube and will have the sutures/anchors removed by surgery in the coming daysafter some initial confusion. Pt is swallowing without difficulty. They are asking about needing to continue warfarin versus other choices of anticoagulation. Pt reports she has a subluxation of her left shoulder per OT and needs an E-Stimulator device via OT. Pt's UTI symptoms are mildly improved;it was negative on culture but her WBC is mildly elevated today on recent testing. It was susceptible to cephalosporins. Pt will see Dr. Walter with [facility]. Pt will see Dr. Martin for neurosurge ry. Pt will see Dr. Clay for vascular. Pt will see [facility]. Pt may see GI in June. Pt has seen Dr. Monreal for urology. She does not have a catheter at this time. Review of Systems Constitutional: Negative for fever. Respiratory: Negative for shortness of breath. Cardiovascular: Negative for chest pain. Gastrointestinal: No dysphagia Genitourinary: See HPI Musculoskeletal: See HPI Neurological: See HPI Patient Active Problem List Diagnosis GERD (gastroesophageal reflux disease) BMI 30.0-30.9,adult Seasonal allergies Elevated fasting glucose Acquired skull defect Anemia Hypertension Left-sided sensory deficit present Hepatocellular injury Hemianopsia Gaze palsy Acute cerebrovascular accident (CVA) due to embolism of right middle cerebral artery (HHS/HCC) ([facility]/HCC) Past Medical History: Diagnosis Date Allergy GERD (gastroesophageal reflux disease) Migraine 10/19/2022 Presence of externally removable percutaneous endoscopic gastrostomy (PEG) tube (HHS/HCC) (CMS/HCC)2022 Received intravenous tissue plasminogen activator (tPA) in emergency department 10/19/2022 Trochanteric bursitis of left hip 12/08/2022 Past Surgical History: Procedure Laterality Date SECTION x 2 CHOLECYSTECTOMY SCREENING COLONOSCOPY August 2021, repeat in 5 years Family History Problem Relation Name Age of Onset Hypertension Mother Reny Disla Thyroid Mother Reny Disla Diabetes Mother Reny Disla Alcohol Abuse Father Adam Martin Social History Socioeconomic History Marital status: Spouse name: Not on file Number of children: 2 Years of education: Not on file Highest education level: Not on file Occupational History 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Tobacco Use Smoking status: Former Packs/day: 0.50 Years: 10.00 Pack years: 5.00 Types: Cigarettes Quit date: 03/12/2015 Years since quittin.7 Smokeless tobacco: Never Substance and Sexual Activity Alcohol use: Yes Comment: 2 drinks every 6 months Drug use: Never Sexual activity: Yes Partners: Male control/protection: OCP Other Topics Concern Not on file Social History Narrative Not on file Social Determinants of Health Financial Resource Strain: Not on file Food Insecurity: Not on file Transportation Needs: Not on file Physical Activity: Not on file Stress: Not on file Social Connections: Not on file Intimate Partner Violence: Not on file Housing Stability: Not on file Immunization History Administered Date(s) Administered Influenza 12/11/2015, 12/13/2018, 12/13/2020 Influenza Adult (Generic) 01/06/2013, 12/15/2019, 12/10/2021 MODERNA COVID-19 BIVALENT (12+), MRNA, LNP-S, PF 01/09/2022 PFIZER COVID-19 (ORIGINAL FORMULATION, PURPLE CAP) mRNA, LNP-S, PF, 30 MCG/0.3 ML DOSE 03/03/2020, 03/25/2020, 03/09/2021 Tdap (Generic) 12/21/2015 Current Outpatient Medications Medication Sig Dispense Refill acetaminophen (TYLENOL) 500 MG tablet 1 tablet (500 mg total) by Tube route every 6 (six) hours as needed. Baclofen 5 MG Tab Take 1 tablet by mouth daily. bethanechol (URECHOLINE) 25 MG tablet Take 1 tablet (25 mg total) by mouth 3 (three) times daily. cefdinir (OMNICEF) 300 MG Cap capsule Take 1 capsule (300 mg total) by mouth 2 (two) times daily. 20 capsule 0 Cetirizine HCl 10 MG TABLET DISPERSIBLE Take 1 tablet (10 mg total) by mouth daily. Cholecalciferol (VITAMIN D3) 50 MCG (2000 UT) Tab Take by mouth daily. cyclobenzaprine (FLEXERIL) 5 MG tablet Take 1 tablet (5 mg total) by mouth 3 (three) times daily. fluconazole (DIFLUCAN) 150 MG tablet Take 1 tablet (150 mg total) by mouth once for 1 dose. Repeat in 72 hours if needed 2 tablet 0 gabapentin (NEURONTIN) 300 MG capsule Take 1 capsule (300 mg total) by mouth 3 (three) times daily. HYDROcodone-acetaminophen (NORCO) 5-325 MG tablet Take 1 tablet by mouth every 6 (six) hours as needed for Pain. Indications: Acute Pain < 7 Day Supply 28 tablet 0 hydrOXYzine (ATARAX) 25 MG tablet Take 1 tablet (25 mg total) by mouth every 6 (six) hours as needed. metoprolol tartrate (LOPRESSOR) 25 MG tablet Take 1 tablet (25 mg total) by mouth 2 (two) times daily. pantoprazole EC (PROTONIX) 40 MG tablet Take 1 tablet (40 mg total) by mouth daily. tamsulosin (FLOMAX) 0.4 MG Cap Take 1 capsule (0.4 mg total) by mouth daily. verapamil ER (VERELAN PM) 120 MG 24 hr capsule Take 1 capsule (120 mg total) by mouth nightly at bedtime. 30 capsule 2 warfarin (COUMADIN) 5 MG tablet Take 1 tablet (5 mg total) by mouth daily. 30 tablet 2 No current facility-administered medications for this visit. Current Outpatient Medications on File Prior to Visit Medication Sig acetaminophen (TYLENOL) 500 MG tablet 1 tablet (500 mg total) by Tube route every 6 (six) hours as needed. Baclofen 5 MG Tab Take 1 tablet by mouth daily. bethanechol (URECHOLINE) 25 MG tablet Take 1 tablet (25 mg total) by mouth 3 (three) times daily. Cetirizine HCl 10 MG TABLET DISPERSIBLE Take 1 tablet (10 mg total) by mouth daily. Cholecalciferol (VITAMIN D3) 50 MCG (2000 UT) Tab Take by mouth daily. cyclobenzaprine (FLEXERIL) 5 MG tablet Take 1 tablet (5 mg total) by mouth 3 (three) times daily. gabapentin (NEURONTIN) 300 MG capsule Take 1 capsule (300 mg total) by mouth 3 (three) times daily. hydrOXYzine (ATARAX) 25 MG tablet Take 1 tablet (25 mg total) by mouth every 6 (six) hours as needed. metoprolol tartrate (LOPRESSOR) 25 MG tablet Take 1 tablet (25 mg total) by mouth 2 (two) times daily. pantoprazole EC (PROTONIX) 40 MG tablet Take 1 tablet (40 mg total) by mouth daily. tamsulosin (FLOMAX) 0.4 MG Cap Take 1 capsule (0.4 mg total) by mouth daily. verapamil ER (VERELAN PM) 120 MG 24 hr capsule Take 1 capsule (120 mg total) by mouth nightly at bedtime. No current facility-administered medications on file prior to visit. Review of patient's allergies indicates: Allergen Reactions Vancomycin Other (see comment) High fevers Latex Rash Objective: Filed Vitals: 12/22/22 1416 BP: 105/66 Pulse: 78 Resp: 16 Temp: 99.1 ??F (37.3 ??C) SpO2: 97% Weight: 72.6 kg (160 lb) Height: 1.626 m (5' 4 ) Physical Exam Vitals and nursing note reviewed. Constitutional: Comments: Sitting in wheelchair comfortably HENT: Head: Comments: Cranial abnormality consistent with surgical history Right Ear: External ear normal. Left Ear: External ear normal. Eyes: Conjunctiva/sclera: Conjunctivae normal. Comments: Right sided gaze noted, likely current baseline Cardiovascular: Rate and Rhythm: Normal rate and regular rhythm. Heart sounds: Normal heart sounds. No murmur heard. No friction rub. No gallop. Pulmonary: Effort: Pulmonary effort is normal. No respiratory distress. Breath sounds: Normal breath sounds. No wheezing or rales. Abdominal: Palpations: Abdomen is soft. Tenderness: There is no abdominal tenderness. Skin: Comments: Sutures and anchors in place on abdomen, no overt signs of infection upon inspection and palpation today Neurological: Mental Status: She is alert. Comments: Right side is WNL; essentially no movement at this time on the LUE or LLE PT/INR 12/22/22: 1.5 Assessment & Plan: Consuelo was seen today for tcm. Diagnoses and all orders for this visit: Cerebrovascular accident (CVA) due to thrombosis of right middle cerebral artery (HHS/HCC) ([facility]) - Ambulatory referral to Social Work (Cheli Valle) - warfarin (COUMADIN) 5 MG tablet; Take 1 tablet (5 mg total) by mouth daily. Subluxation of left shoulder joint, subsequent encounter - HYDROcodone-acetaminophen (NORCO) 5-325 MG tablet; Take 1 tablet by mouth every 6 (six) hours asneeded for Pain. Indications: Acute Pain < 7 Day Supply - Ambulatory referral to Social Work (Cheli Valle) Current use of skilled nursing anticoagulation - Ambulatory referral to Social Work (Cheli Valle) Acute cystitis without hematuria - cefdinir (OMNICEF) 300 MG Cap capsule; Take 1 capsule (300 mg total) by mouth 2 (two) times daily. - fluconazole (DIFLUCAN) 150 MG tablet; Take 1 tablet (150 mg total) by mouth once for 1 dose. Repeat in 72 hours if needed Discussion/Summary: Will increase warfarin to 5 mg daily; will recheck next Sunday. Will send out cefdinir to cover forpossible UTI. F/u with all specialists, including surgery for suture/anchor removal. If sutures areremoved and still having pain, consider additional diagnostics. Will switch from oxycodone to hydrocodone given drowsiness with oxycodone use; emphasized that she cannot take NSAIDs at this time. Will refer to our social work as well given many issues with DME, specifically home equipment helping to lift patient. Signed order for stimulator for OT to use. Call back if acutely worsening or go to ER. Will have pt f/u in 3 weeks or sooner if needed. Pt and v/u. I personally spent a total of 74 minutes on the day of the encounter. This includes avel-bv-ulkr and vnm-nuar-jj-face time I provided on the day of the encounter & excludes time spent performing separately reportable services. Jaden Thakur DO documented in this encounter Plan of Treatment Scheduled Referrals Name Type Priority Associated Diagnoses Orde r Schedule Ambulatory referral to Social Work (Cheli Valle) Referral Routine Cerebrovascular accident (CVA) due to thrombosis of right middle cerebral artery ([facility]/HCC HHS/HCC) Subluxation of left shoulder joint, subsequent encounter Current use of client services specialist anticoagulation Ordered: 12/22/2022 documented as of this encounter Procedures Procedure Name Priority Date/Time Associated Diagnosis Comments COLLECT.CAPILLARY (FNGR,HEEL,EAR) Routine 12/25/2022 7:55 AM CDT Current use of skilled nursing anticoagulation PROTHROMBIN TIME, FINGERSTICK Routine 12/25/2022 Current use of client services specialist anticoagulation documented in this encounter Results * PROTIME/INR, FINGERSTICK (12/25/2022) INR WHOLE BLOOD 1.50 MG-S [facility] 12/25/2022 us Jaden Thakur DO LABORATORY [place] [address], documented in this encounter Visit Diagnoses Diagnosis Cerebrovascular accident (CVA) due to thrombosis of right middle cerebral artery ([facility]/HCC HHS/HCC)- Primary Subluxation of left shoulder joint, subsequent encounter Current use of client services specialist anticoagulation Encounter for long-term (current) use of anticoagulants Acute cystitis without hematuria Acute cystitis documented in this encounter Additional Health Concerns Assessment Noted Time PHQ-9 Depression Total Score: 0 04/30/19 21 9:32 AM PAPER LATCHER documented as of this encounter Care Teams Centrifugal Supervisor Relationship Specialty Start Date End Date Jaden Thakur DO [address] [place] [address] PCP - General FAMILY PRACTICE 04/10/19 documented as of this encounter
--- OUTSIDE RECORDS SUMMARY | 2024-03-19 20:50 | XMS_ITS | Encounter Summary ---
Author Organization [facility] Address [address] [place] [address]. 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 * Jaden Thakur DO - 08/11/2022 2:56 PM CDT Want to try adding metoprolol tartrate 25 mg BID to see if this helps; continue amitriptyline at current dose. documented in this encounter Plan of Treatment Not on file documented as of this encounter Visit Diagnoses Diagnosis Migraine without aura and without status migrainosus, not intractable- Primary Migraine without aura, without mention of intractable migraine without mention of status migrainosus documented in this encounter Additional Health Concerns Assessment Noted Time PHQ-9 Depression Total Score: 0 04/30/19 21 9:32 AM MAMMALOGY TEACHER documented as of this encounter Care Teams Oil [employer] Field Supervisor Relationship Specialty Start Date End Date Jaden Thakur DO [address] [place] [address] PCP - General FAMILY PRACTICE 04/10/19 documented as of this encounter
--- OUTSIDE RECORDS SUMMARY | 2024-03-19 20:50 | XMS_ITS | Encounter Summary ---
Author Organization [facility] Address [address] [place] [address]. 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 * Laura Becker RN - 01/08/2023 3:01 PM CDT Patient notified and verbalized understanding. Patient [facility]. PCP is will to send out more of her pain medication. Patient will speak to her surgeon about her hip pain during her recovery. Opportunity given for all questions to be answered, no further needs voiced at this time. RX pend back to PCP. LL-01/08/23 * Jaden Thakur DO - 01/08/2023 12:55 PM CDT Given her recent hospitalization, lack of injury, severity, and lack of improvement with strong narcotic analgesics, pt needs to go to ER for evaluation of this. Given pt's upcoming surgery, she is not likely a candidate for NSAID therapy at this time. * Laura Becker RN - 01/08/2023 11:19 AM CDT Patient's called in stating that the patient is in sever pain to her left hip. Patient reported that she is only able to get her pain level to a 6 out of 10 pain. Most days she is at an 8 or 9 on the pain scale. Patient is currently taking Narco 5-325 and she says it barely relives the pain. She was prescribed oxycodone in the past. She had a few left over and took them last night. They also did not helping with the pain. Patient was recently at [facility]. He DC all of her blood thinners. He said that he no longer feels that she needs them because he believes her CVA was related to an infection around her heart. They are wondering if there is another medication she can take to help with the pain? Can she stattake ibuprofen again? Opportunity given for all questions to be answered, no further needs voiced at this time. Please advise LL-01/08/23 documented in this encounter Plan of Treatment Not on file documented as of this encounter Visit Diagnoses Diagnosis Subluxation of left shoulder joint, subsequent encounter documented in this encounter Additional Health Concerns Assessment Noted Time PHQ-9 Depression Total Score: 0 04/30/19 21 9:32 AM ENTRY LEVEL STAFF ACCOUNTANT documented as of this encounter Care Teams Reimbursement Representative Relationship Specialty Start Date End Date Jaden Thakur DO [address] [place] [address] PCP - General FAMILY PRACTICE 04/10/19 documented as of this encounter
--- OUTSIDE RECORDS SUMMARY | 2024-03-19 20:50 | XMS_ITS | Encounter Summary ---
Author Organization [facility] Address [address] [place] [address]. 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
--- OUTSIDE RECORDS SUMMARY | 2024-03-19 20:50 | XMS_ITS | Encounter Summary ---
Author Organization [facility] Address [address] [place] [address]. [place], [place] [phone] [place] [address] Care Team Providers Care Radiology Interventional Physician Name Role Phone Jaden Thakur DO Primary Care Provider + Encounter Details Date Type Department Care Team (Latest Contact Info) Description 03/30/2023 Scan [facility] Scanned, Doc [...] on file Legal Sex Female 2:33 PM BACTERIOLOGY PROFESSOR Gender Identity Not on file Sexual Orientation [...] Total Score: 0 04/30/19 21 9:32 AM BACTERIOLOGY PROFESSOR documented as of this encounter Care Teams Radiology Interventional Physician Relationship Specialty Start Date End Date Jaden Thakur DO [address] [place] [id number] PCP - General FAMILY PRACTICE 04/10/19 documented as of this encounter
--- OUTSIDE RECORDS SUMMARY | 2024-03-19 20:50 | XMS_ITS | Encounter Summary ---
Author Organization [facility] Address [address] [place] [address]. [place], [place] [id number] [place] [address] Care Team Providers Care Advertising Assistant Name Role Phone Jaden Thakur DO Primary Care Provider + Encounter Details Date Type Department Care Team (Latest Contact Info) Description 12/25/2022 Travel Social History Tobacco Use Types Packs/Day [...] on file Legal Sex Female 2:33 PM REIMBURSEMENT ANALYST Gender Identity Not on file Sexual Orientation [...] Total Score: 0 04/30/19 21 9:32 AM REIMBURSEMENT ANALYST documented as of this encounter Care Teams Advertising Assistant Relationship Specialty Start Date End Date Jaden Thakur DO [address] [place] [address] PCP - General FAMILY PRACTICE 04/10/19 documented as of this encounter
--- OUTSIDE RECORDS SUMMARY | 2024-03-19 20:50 | XMS_ITS | Encounter Summary ---
Author Organization [facility] Address [address] [place] [address]. [address] [address] Care Team Providers Care Starch Dumper Name Role Phone Jaden Thakur DO Primary Care Provider + Reason for Visit * Reason Comments UTI Anticoagulation Encounter Details Date Type Department Care Team (Latest Contact Info) Description 12/20/2022 2:20 PM CDT Allied Health/Nurse Visit [facility] Medical Group Family & Internal Medicine [address] [place] [address] Jaden Thakur DO 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 PCP gave verbal order to increase warfarin to 4 mgdaily. Patient notified and verbalized understanding. Opportunity given for all questions to be answered, no further needs voiced at this time. LL-12/20/22 documented in this encounter Plan of Treatment Not on file documented as of this encounter Procedures Procedure Name Priority Date/Time Associated Diagnosis Comments URINE BACTERIA CULTURE Routine 12/20/2022 3:06 PM CDT Current use of group home anticoagulation PROTHROMBIN TIME, FINGERSTICK Routine 12/20/2022 Current use of group home anticoagulation PROTHROMBIN TIME, FINGERSTICK Routine 12/20/2022 Current use of group home anticoagulation COLLECT.CAPILLARY (FNGR,HEEL,EAR) Routine 12/20/2022 Current use of superintendent container terminal anticoagulation URINALYSIS AUTO DIP Routine 12/20/2022 Dysuria documented in this encounter Results * CULTURE URINE (12/20/2022 3:06 PM CDT) CULTURE RESULT [place] Comment: ??CULTURE, URINE, ROUTINE ?Micro Number: ?[id number] ??Test Status: ? Final ??Specimen Source: ?? Urine ??Specimen Quality: ??Adequate ??Result: ?Mixed genital steven isolated. These superficial ? bacteria are not indicative of a urinary tract ? infection. No further organism identification is ? warranted on this specimen. If clinically ? indicated, recollect clean-catch, mid-stream ? urine and transfer immediately to Urine Culture ? Transport Tube. URINE SPECIMEN OBTAINED BY CLEAN CATCH PROCEDURE / Unknown 12/20/2022 3:06 PM CDT 12/21/2022 12:19 AM CDT Narrative Resulting Agency Comment Performing Organization Information: ?Site ID: [id number] ?[facility] ?Address: [address] [place] [id number] ?Director: Paris Ambrosio Jaden Thakur DO MICROBIOLOGY - GENERAL O RDERABLES Final Result Performing Organization Address City/[facility]/ZIP Co de Phone Number [employer] [facility] [place] [facility] [address], * COLLECT.CAPILLARY (FNGR,HEEL,EAR) (12/20/2022) Jaden Thakur DO PROCEDURES-UNRESULTED Fi nal Result * PROTIME/INR, FINGERSTICK (12/20/2022) Pathologist [facility] INR WHOLE BLOOD 1.70 [facility] Comment:recheck 12/20/2022 Jaden Thakur DO LABORATORY Final Re sult Performing Organization Address [facility]/State/ZIP Co de Phone Number [facility] [address] [place] [address], [place] * (ABNORMAL) URINALYSIS AUTO DIP (12/20/2022) COLOR (U) YELLOW YELLOW [facility] TRANSPARENCY CLEAR CLEAR [facility] GLUCOSE (U) NEGATIVE NEGATIVE MG/DL [facility] BILIRUBIN (U) NEGATIVE NEGATIVE [facility] KETONES MG/DL (U) NEGATIVE NEGATIVE MG/DL [facility] SPECIFIC GRAVITY (U) 1.015 1.001 - 1.035 [facility] BLOOD (U) SMALL (1+, Hemolyzed)(A ) NEGATIVE [facility] U PH 6.0 5.0 - 9.0 [facility] PROTEIN (U) NEGATIVE NEGATIVE mg/dL [facility] UROBILINOGEN 0.2 0.2 - 1.0 EU/dL = mg/dL [facility] NITRITES NEGATIVE NEGATIVE MG/DL [facility] LEUKOCYTES (U) NEGATIVE NEGATIVE [facility] URINE SPECIMEN OBTAINED BY CLEAN CATCH PROCEDURE / Unknown 12/20/2022 us Jaden Thakur DO URINE ORDERABLES [place] [address], * PROTIME/INR, FINGERSTICK (12/20/2022) INR WHOLE BLOOD 1.60 [facility] Comment:Recheck 1.7 12/20/2022 us Jaden Thakur DO LABORATORY Final Re sult Performing Organization Address [facility]/State/ZIP [place] [address], documented in this encounter Visit Diagnoses Diagnosis Current use of superintendent container terminal anticoagulation- Primary Encounter for long-term (current) use of anticoagulants Dysuria documented in this encounter Additional Health Concerns Assessment Noted Time PHQ-9 Depression Total Score: 0 04/30/19 21 9:32 AM SOAKING PIT OPERATOR documented as of this encounter Care Teams Starch Dumper Relationship Specialty Start Date End Date Jaden Thakur DO [address] [place] [address] PCP - General FAMILY PRACTICE 04/10/19 documented as of this encounter
--- OUTSIDE RECORDS SUMMARY | 2024-03-19 20:50 | XMS_ITS | Encounter Summary ---
Author Organization [facility] Address [address] [place] [address]. [address] [address] Care Team Providers Care Production Line Manager Name Role Phone Jaden Thakur DO Primary Care Provider + Reason for Visit * Reason Comments Headache Patient presents for a 3 month follow up. Encounter Details Date Type Department Care Team (Late st Contact Info) Description 09/15/2022 9:00 AM CDT Office Visit [facility] Medical Group Family & Internal Medicine [phone] [place] [address] Jaden Thakur DO [address] [place] [phone] Headache (Patient presents for a 3 month follow up. 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 file documented as of this encounter Last Filed Vital Signs Vital Sign Reading Time Taken Comments Blood Pressure 124/84 09/15/2022 8:53 AM CDT Pulse 100 09/15/2022 8:53 AM CDT Temperature 36.7 ??C (98.1 ??F) 09/15/2022 8:53 AM CD T Respiratory Rate 16 09/15/2022 8:53 AM CDT Oxygen Saturation 98% 09/15/2022 8:53 AM CDT Inhaled Oxygen Concentration - - Weight 96.5 kg (212 lb 11.2 oz) 09/15/2022 8:53 AM CDT Height 162.6 cm (5' 4 ) 09/15/2022 8:53 AM CDT Body Mass Index 36.51 09/15/2022 8:53 AM CDT documented in this encounter Progress Notes * Jaden Thakur, DO - 09/15/2022 9:00 AM CDT GENERAL OFFICE VISIT Encounter Date: 09/15/2022 Chief Complaint: 41-year-old female presents for Headache (Patient presents for a 3 month follow up. ) HPI: Pt has migraines. Pt is on amitriptyline for prevention and rizatriptan for acute management. At last OV, we increased her rizatriptan and amitriptyline. In between our last OV, we also started her on metoprolol to see if this would help control her migraines as well. While they are not worse, theyare also not better. Increase the Maxalt did help with rescue symptoms. Pt also needs an A1c today for elevated blood sugar. Office Visit on 09/15/2022 Component Date Value Ref Range Status HGB A1C 09/15/2022 5.9 % Final Review of Systems Constitutional: Negative for fever. Neurological: See HPI Patient Active Problem List Diagnosis GERD (gastroesophageal reflux disease) BMI 30.0-30.9,adult Seasonal allergies Elevated fasting glucose Past Medical History: Diagnosis Date Allergy GERD (gastroesophageal reflux disease) Past Surgical History: Procedure Laterality Date SECTION [...] Types: Cigarettes Quit date: 03/12/2015 Years since quittin.5 Smokeless tobacco: Never Substance and Sexual Activity [...] Current Outpatient Medications Medication Sig Dispense Refill amitriptyline (ELAVIL) 50 MG tablet Take 2 tablets (100 mg total) by mouth nightly at bedtime. 180 tablet 0 Cetirizine HCl 10 MG TABLET DISPERSIBLE Take 1 tablet (10 mg total) by mouth daily. Cholecalciferol (VITAMIN D3) 50 MCG (2000 UT) Tab Take by mouth daily. levonorgestrel-ethinyl estradiol 0.1-20 MG-MCG tablet TAKE 1 TABLET BY MOUTH ONCE DAILY omeprazole (PRILOSEC) 20 MG capsule Take 1 capsule (20 mg total) by mouth daily. 90 capsule 1 rizatriptan (MAXALT) 10 MG tablet Take 1 tablet (10 mg total) by mouth as needed for Migraine. May repeat in 2 hours if needed 30 tablet 1 verapamil ER (VERELAN PM) 120 MG 24 hr capsule Take 1 capsule (120 mg total) by mouth nightly at bedtime. 30 capsule 2 No current facility-administered medications for this visit. Current Outpatient Medications on File Prior to Visit Medication Sig amitriptyline (ELAVIL) 50 MG tablet Take 2 tablets (100 mg total) by mouth nightly at bedtime. Cetirizine HCl 10 MG TABLET DISPERSIBLE Take 1 tablet (10 mg total) by mouth daily. Cholecalciferol (VITAMIN D3) 50 MCG (2000 UT) Tab Take by mouth daily. levonorgestrel-ethinyl estradiol 0.1-20 MG-MCG tablet TAKE 1 TABLET BY MOUTH ONCE DAILY omeprazole (PRILOSEC) 20 MG capsule Take 1 capsule (20 mg total) by mouth daily. rizatriptan (MAXALT) 10 MG tablet Take 1 tablet (10 mg total) by mouth as needed for Migraine. May repeat in 2 hours if needed No current facility-administered medications on file prior to visit. Review of patient's allergies indicates: Allergen Reactions Latex Rash Objective: Filed Vitals: 09/15/22 0853 BP: 124/84 Pulse: 100 Resp: 16 Temp: 98.1 ??F (36.7 ??C) TempSrc: Skin SpO2: 98% Weight: 96.5 kg (212 lb 11.2 oz) Height: 5' 4 (1.626 m) Physical Exam Vitals and nursing note reviewed. HENT: Head: Normocephalic and atraumatic. Right Ear: External ear normal. Left Ear: External ear normal. Nose: Nose normal. Eyes: General: No scleral icterus. Conjunctiva/sclera: Conjunctivae normal. Cardiovascular: Rate and Rhythm: Normal rate and regular rhythm. Pulmonary: Effort: Pulmonary effort is normal. Skin: General: Skin is dry. Findings: No rash. Neurological: Mental Status: She is alert and oriented to person, place, and time. Psychiatric: Mood and Affect: Mood and affect normal. Assessment & Plan: Consuelo was seen today for headache. Diagnoses and all orders for this visit: Migraine without aura and without status migrainosus, not intractable - verapamil ER (VERELAN PM) 120 MG 24 hr capsule; Take 1 capsule (120 mg total) by mouth nightly atbedtime. Elevated fasting glucose - HEMOGLOBIN, GLYCOSYLATED - COLLECT.CAPILLARY (FNGR,HEEL,EAR) Discussion/Summary: We will stop metoprolol and start on verapamil; discussed side effect profile. Continue amitriptyline. Recommend weight loss and exercise for elevated A1c; will recheck in 6 to 12 months. We will have patient follow-up in 3 months or sooner if needed. Patient verbalized understanding. Jaden Thakur DO documented in this encounter Plan of Treatment Not on file documented as of this encounter Procedures Procedure Name Priority Date/Time Associated Diagnosis Comments COLLECT.CAPILLARY (FNGR,HEEL,EAR) Routine 09/15/2022 8:47 AM CDT Elevated fasting glucose HEMOGLOBIN, GLYCOSYLATED Routine 09/15/2022 Elevated fasting glucose documented in this encounter Results * HEMOGLOBIN, GLYCOSYLATED (09/15/2022) HGB A1C 5.9 % [facility] 09/15/2022 us Jaden Thakur DO LABORATORY [place] [address], documented in this encounter Visit Diagnoses Diagnosis Migraine without aura and without status migrainosus, not intractable- Primary Migraine without aura, without mention of intractable migraine without mention of status migrainosus Elevated fasting glucose Impaired fasting glucose documented in this encounter Additional Health Concerns Assessment Noted Time PHQ-9 Depression Total Score: 0 04/30/19 21 9:32 AM BOARD HANDLER documented as of this encounter Care Teams Production Line Manager Relationship Specialty Start Date End Date Jaden Thakur DO [address] [place] [address] PCP - General FAMILY PRACTICE 04/10/19 documented as of this encounter
--- OUTSIDE RECORDS SUMMARY | 2024-03-19 20:50 | XMS_ITS | Encounter Summary ---
Author Organization [facility] Address [address] [place] [address]. 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 Salo was a MD appt and unable to talk. [employer] will contact [employer] again at a later time. * CHERELLE Waggoner - 12/26/2022 11:20 AM CDT states he is attempting to get a invoice for sit ti stand and has been unsuccessful. Spoke with [facility] in regards to pts attempting to purchase a Sit to Stand Machine outright for pt. Halina with PP stated that a order needs to be sent that States Order for Electric Sit to Stand Private Pay DX: I63.411,M 95.2... [employer] will request that a urgent order be sent to per husbands request as he is going there today at 145. [employer] also has a call out to [facility] about at home PT INR. * Romy Pena DO - 12/26/2022 11:20 AM CDT Order placed; will order to be faxed. We will do our best to accommodate, but uncertain if this will get there in time given the short time frame. * Pilar Franco MA - 12/26/2022 11:20 AM CDT Order faxed. * CHERELLE Waggoner - 12/26/2022 11:20 AM CDT Called to follow up with [employer]. Informed him Consuelo from [facility] will take over with in home PTINR. Encouraged Salo to call anytime with any other questions. * Romy Pean DO - 12/26/2022 11:20 AM CDTAddended by: ROMY PENA on: 12/27/2022 01:17 PM Modules accepted: Orders * Pilar Franco MA - 12/26/2022 11:20 AM CDTAddended by: PILAR FRANCO on: 12/27/2022 01:26 PM Modules accepted: Orders documented in this encounter Plan of Treatment Not on file documented as of this encounter Visit Diagnoses Diagnosis Cerebral infarction due to embolism of right middle cerebral artery ([facility]/HCC HHS/HCC)- Primary Cerebral embolism with cerebral infarction Zygomatic hypoplasia Acquired skull defect Other specified acquired deformity of head documented in this encounter Additional Health Concerns Assessment Noted Time PHQ-9 Depression Total Score: 0 04/30/19 21 9:32 AM TELEVISION PRODUCER documented as of this encounter Care Teams Aluminum Siding Mechanic Relationship Specialty Start Date End Date Romy Pena DO [address] [place] [address] PCP - General FAMILY PRACTICE 04/10/19 documented as of this encounter
--- OUTSIDE RECORDS SUMMARY | 2024-03-19 20:50 | XMS_ITS | Encounter Summary ---
Author Organization [facility] Address [address] [place] [address]. [place], [place] [id number] [place] [address] Care Team Providers Care Rerecording Mixer Name Role Phone Romy Pena DO Primary Care Provider + Reason for Referral * Imaging (Routine) - Closed Specialty Diagnoses / Procedures Referred By Contac t Referred To Contact RADIOLOGY Diagnoses Encounter for screening mammogram for breast cancer Procedures MG SCREENING SIVA DIGI Romy Pena DO [address] [place] [address] Phone: tel: fax: Referral ID Status Reason Start Date Expiration Date Visits Re quested Visits Authorized [id number] Closed 01/15/2023 03/17/2024 1 1 LEY WORKER Reason for Visit * Reason Onset Date Comments Refill Request 01/15/2023 Mammography Order 01/15/2023 Encounter Details Date Type Department Care Team (Late st Contact Info) Description 01/15/2023 Telephone [facility] Medical Group Family & Internal Medicine [place] [address] [place] [address] Romy Pena DO [address] [place], [place] [phone] Refill Request; Mammography Order Social History Tobacco Use Types Packs/Day Years [...] on file 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 Gender Identity Not on file Sexual Orientation Not on file 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 file documented as of this encounter Progress Notes * Tia Jacobo MA - 01/15/2023 10:29 AM CST Refill request received from patient and mammogram order pended Last visit with ROMY PENA in FAMILY PRACTICE was on: 12/22/2022 in [facility] Future Appointments Date Time Provider Department Center 01/25/2023 7:20 AM Romy Pena DO [id number] - [place], [place] - [facility] [address] [place] [address] [address] [facility] [phone] Current Outpatient Medications: acetaminophen (TYLENOL) 500 MG tablet, 1 tablet (500 mg total) by Tube route every 6 (six) hours asneeded., Disp: , Rfl: AFO BRACE, DME,, Apply 1 Device topically daily., Disp: 1 Device, Rfl: 0 baclofen (LIORESAL) 5 MG tablet, Take 1 tablet (5 mg total) by mouth daily., Disp: 90 tablet, Rfl: 0 bethanechol (URECHOLINE) 25 MG tablet, Take 1 tablet (25 mg total) by mouth 3 (three) times daily.,Disp: , Rfl: cefdinir (OMNICEF) 300 MG Cap capsule, Take 1 capsule (300 mg total) by mouth 2 (two) times daily.,Disp: 20 capsule, Rfl: 0 Cetirizine HCl 10 MG TABLET DISPERSIBLE, Take 1 tablet (10 mg total) by mouth daily., Disp: , Rfl: Cholecalciferol (VITAMIN D3) 50 MCG (1999 UT) Tab, Take by mouth daily., Disp: , Rfl: cyclobenzaprine (FLEXERIL) 5 MG tablet, Take 1 tablet (5 mg total) by mouth 3 (three) times daily.,Disp: , Rfl: enoxaparin (LOVENOX) 80 mg/0.8 mL Solution Prefilled Syringe syringe, Inject 0.8 mLs (80 mg total) into the skin 2 (two) times a day., Disp: 8 mL, Rfl: 0 gabapentin (NEURONTIN) 300 MG capsule, Take 1 capsule (300 mg total) by mouth 3 (three) times daily., Disp: , Rfl: HYDROcodone-acetaminophen (NORCO) 5-325 MG tablet, Take 1-2 tablets by mouth every 6 (six) hours asneeded for Pain. Indications: Acute Pain < 7 Day Supply, Disp: 56 tablet, Rfl: 0 hydrOXYzine (ATARAX) 25 MG tablet, Take 1 tablet (25 mg total) by mouth every 6 (six) hours as needed., Disp: , Rfl: metoprolol tartrate (LOPRESSOR) 25 MG tablet, Take 1 tablet (25 mg total) by mouth 2 (two) times daily., Disp: 180 tablet, Rfl: 0 pantoprazole EC (PROTONIX) 40 MG tablet, Take 1 tablet (40 mg total) by mouth daily., Disp: 90 tablet, Rfl: 0 SIT TO STAND LIFT, DME,, 1 Device by Does not apply route as needed. Order for Electric Sit to Stand, Disp: 1 Device, Rfl: 0 tamsulosin (FLOMAX) 0.4 MG Cap, Take 1 capsule (0.4 mg total) by mouth daily., Disp: 30 capsule, Rfl: 2 verapamil ER (VERELAN PM) 120 MG 24 hr capsule, Take 1 capsule (120 mg total) by mouth nightly at bedtime., Disp: 30 capsule, Rfl: 2 warfarin (COUMADIN) 5 MG tablet, Take 1 tablet (5 mg total) by mouth daily., Disp: 30 tablet, Rfl: 0 warfarin (COUMADIN) 6 MG tablet, Take 1 tablet (6 mg total) by mouth daily., Disp: 30 tablet, Rfl: 1 LEY WORKER documented in this encounter Plan of Treatment Scheduled Orders Name Type Priority Associated Diagnoses Orde r Schedule MG SCREENING SIVA DIGI MAMMO Routine Encounter for screening mammogram for breast cancer Expected: 01/15/2023, Expires: 03/17/2024 documented as of this encounter Visit Diagnoses Diagnosis Cerebrovascular accident (CVA) due to thrombosis of right middle cerebral artery (CMS/HCC HHS/HCC)- Primary Migraine without aura and without status migrainosus, not intractable Migraine without aura, without mention of intractable migraine without mention of status migrainosus Subluxation of left shoulder joint, subsequent encounter Encounter for screening mammogram for breast cancer documented in this encounter Additional Health Concerns Assessment Noted Time PHQ-9 Depression Total Score: 0 04/30/19 21 9:32 AM TROLLEY WORKER documented as of this encounter Care Teams Rerecording Mixer Relationship Specialty Start Date End Date Romy Pena DO [address] [place] [id number] PCP - General FAMILY PRACTICE 04/10/19 documented as of this encounter
--- OUTSIDE RECORDS SUMMARY | 2024-03-19 20:50 | XMS_ITS | Encounter Summary ---
Author Organization [facility] Address [address] [place] [address]. [place], [place] [phone] [place] [address] Care Team Providers Care International Guest Coordinator Name Role Phone Jaden Thakur DO Primary Care Provider + Reason for Visit * Reason Onset Date Comments Radiology Results 02/27/2023 Encounter Details Date Type Department Care Team (Late st Contact Info) Description 02/27/[address] 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 No concerning findingson exam with dense breast parenchyma noted. Screening mammogram is recommended at 1 year intervals.Patient is considered for additional breast ultrasounds for supplemental screening at 6-month intervals. We can discuss this at future office visit. LIGHTER documented in this encounter Plan of Treatment Not on file documented as of this encounter Visit Diagnoses Not on filedocumented in this encounter Additional Health Concerns Assessment Noted Time PHQ-9 Depression Total Score: 0 04/30/19 21 9:32 AM LEADLIGHTER documented as of this encounter Care Teams International Guest Coordinator Relationship Specialty Start Date End Date Jaden Thakur DO [address] [place] [address] PCP - General FAMILY PRACTICE 04/10/19 documented as of this encounter
--- OUTSIDE RECORDS SUMMARY | 2024-03-19 20:50 | XMS_ITS | Encounter Summary ---
Author Organization [facility] Address [address] [place] [address]. 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 file documented as of this encounter Plan of Treatment Not on file documented as of this encounter Procedures Procedure Name Priority Date/Time Associated Diagnosis Comments MAMMOGRAM GENERIC (SCAN ORDER) 02/15/2023 documented in this encounter Results * MAMMOGRAM GENERIC (02/15/2023) Anatomical Region Laterality Modality Other 02/15/2023 us Doc Med Group Scanned SCANNING Final Resu lt documented in this encounter Visit Diagnoses Not on filedocumented in this encounter Additional Health Concerns Assessment Noted Time PHQ-9 Depression Total Score: 0 04/30/19 21 9:32 AM DRY PLASTERER documented as of this encounter Care Teams Pipe Foreman Relationship Specialty Start Date End Date Jdaen Thakur DO [address] [place] [address] PCP - General FAMILY PRACTICE 04/10/19 documented as of this encounter
--- OUTSIDE RECORDS SUMMARY | 2024-03-19 20:50 | XMS_ITS | Encounter Summary ---
Author Organization [facility] Address [address] [place] [address]. [place], [place] [address] [place] [address] Care Team Providers Care Information Resources Manager Name Role Phone Jaden Thakur DO Primary Care Provider + Encounter Details Date Type Department Care Team (Latest Contact Info) Description 03/29/2023 Scan [facility] HEALTH INFO SRVCS Scanned, Doc [...] on file Legal Sex Female 2:33 PM POLICY MANAGER Gender Identity Not on file Sexual [...] Total Score: 0 04/30/19 21 9:32 AM POLICY MANAGER documented as of this encounter Care Teams Information Resources Manager Relationship Specialty Start Date End Date Jaden Thakur DO [address] [place] [address] PCP - General FAMILY PRACTICE 04/10/19 documented as of this encounter
--- OUTSIDE RECORDS SUMMARY | 2024-03-19 20:50 | XMS_ITS | Encounter Summary ---
Author Organization [facility] Address [address] [place] [address]. [place], [place] [address] [place] [address] Care Team Providers Care Cutter Wet Machine Name Role Phone Jaden Thakur DO Primary Care Provider + Encounter Details Date Type Department Care Team (Latest Contact Info) Description 12/20/2022 Travel Social History Tobacco Use Types Packs/Day [...] on file Legal Sex Female 2:33 PM BENDING PRESS OPERATOR Gender Identity Not on file Sexual [...] Total Score: 0 04/30/19 21 9:32 AM BENDING PRESS OPERATOR documented as of this encounter Care Teams Cutter Wet Machine Relationship Specialty Start Date End Date Jaden Thakur DO [address] [place] [address] PCP - General FAMILY PRACTICE 04/10/19 documented as of this encounter
--- OUTSIDE RECORDS SUMMARY | 2024-03-19 20:50 | XMS_ITS | Encounter Summary ---
Author Organization [facility] Address [address] [place] [address]. [place], [place] [address] [place] [address] Care Team Providers Care Shift Supervisor Rn Name Role Phone Jaden Thakur DO Primary Care Provider + Encounter Details Date Type Department Care Team (Latest Contact Info) Description 12/18/2022 Scan HEALTH INFO SRVCS Scanned, Doc Med [...] on file Legal Sex Female 2:33 PM PIT INSPECTOR Gender Identity Not on file Sexual Orientation [...] Total Score: 0 04/30/19 21 9:32 AM PIT INSPECTOR documented as of this encounter Care Teams Shift Supervisor Rn Relationship Specialty Start Date End Date Jaden Thakur DO [address] [place] [address] PCP - General FAMILY PRACTICE 04/10/19 documented as of this encounter
--- OUTSIDE RECORDS SUMMARY | 2024-03-19 20:50 | XMS_ITS | Encounter Summary ---
Author Organization [facility] Address [address] [place] [address]. [address] [address] Care Team Providers Care Marriage Therapist Name Role Phone Jaden Thakur DO Primary Care Provider + Reason for Visit * Reason Onset Date Comments Advice 01/01/2023 Encounter Details Date Type Department Care Team (Late st Contact Info) Description 01/01/2023 [employer] Message Enc [facility] Medical Group Family & Internal Medicine [facility] [address] [place] [address] Jaden Thakur DO [address] [place] [address] Question regarding PROTHROMBIN TIME, FINGERSTICK Social History Tobacco Use Types Packs/Day Years [...] on file Legal Sex Female 2:33 PM CONCRETE VAULT MAKER Gender Identity Not on file Sexual Orientation Not on file 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 Jaden Thakur Sent: 01/01/2023 7:52 PM CDT Subject: Question regarding PROTHROMBIN TIME, FINGERSTICK We never heard from anyone as what we should do for dose we only have 6 mg tablets at home I just took half of one this evening so 3 mg please let us know tomorrow first thing what would we should domoving forward documented in this encounter Plan of Treatment Not on file documented as of this encounter Visit Diagnoses Not on filedocumented in this encounter Additional Health Concerns Assessment Noted Time PHQ-9 Depression Total Score: 0 04/30/19 21 9:32 AM CONCRETE VAULT MAKER documented as of this encounter Care Teams Marriage Therapist Relationship Specialty Start Date End Date Jaden Thakur DO [address] [place] [address] PCP - General FAMILY PRACTICE 04/10/19 documented as of this encounter
--- OUTSIDE RECORDS SUMMARY | 2024-03-19 20:50 | XMS_ITS | Encounter Summary ---
Author Organization [facility] Address [address] [place] [address]. 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 No / Unsure 06/13/2022 11:00 AM CDT documented as of this encounter Plan of Treatment Not on file documented as of this encounter Visit Diagnoses Not on filedocumented in this encounter Additional Health Concerns Assessment Noted Time PHQ-9 Depression Total Score: 0 04/30/19 21 9:32 AM TRANSPORTATION REFRIGERATION TECHNICIAN documented as of this encounter Care Teams Deputy Sheriff Bailiff Relationship Specialty Start Date End Date Jaden Thakur DO [address] [place] [address] PCP - General FAMILY PRACTICE 04/10/19 documented as of this encounter
--- OUTSIDE RECORDS SUMMARY | 2024-03-19 20:50 | XMS_ITS | Encounter Summary ---
Author Organization [facility] [place] [facility] Address [address] [place] [address]. [place], [place] [address] [place] [address] Care Team Providers Care Clinical Admissions Manager Name Role Phone Jaden Thakur DO Primary Care Provider + Encounter Details Date Type Department Care Team (Latest Contact Info) Description 01/05/2023 [employer] Message Enc [facility] Medical Group Family & Internal Medicine 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 Jaden Thakur Sent: 01/05/2023 6:18 PM CDT Subject: Loobloodthinner question After Lorraine ngoc revealed the The vegetation was completely gone. They said I did not need to stay onblood thinners for now I have sent a message to the neurosurgeon making sure she is OK with that leading up to her surgery but we will be holding the Lovenox until I hear back just thought I would keep you upd ated. Thank you. documented in this encounter Plan of Treatment Not on file documented as of this encounter Visit Diagnoses Not on filedocumented in this encounter Additional Health Concerns Assessment Noted Time PHQ-9 Depression Total Score: 0 04/30/19 21 9:32 AM CHUCK TENDER documented as of this encounter Care Teams Clinical Admissions Manager Relationship Specialty Start Date End Date Jaden Thakur DO [address] [place] [address] PCP - General FAMILY PRACTICE 04/10/19 documented as of this encounter
--- OUTSIDE RECORDS SUMMARY | 2024-03-19 20:50 | XMS_ITS | Encounter Summary ---
Author Organization [facility] Address [address] [place] [address]. [place], [place] [address] [place] [address] Care Team Providers Care Concrete Inspector Name Role Phone Jaden Thakur DO Primary Care Provider + Encounter Details Date Type Department Care Team (Late st Contact Info) Description 02/10/2023 [employer] Message Enc [facility] Medical Group Family & Internal Medicine [facility] [address] [place] [address] Jaden Thakur DO [address] [place], [place] [id number] Order? Social History Tobacco Use Types Packs/Day Years [...] on file Legal Sex Female 2:33 PM STOCKROOM CLERK Gender Identity Not on file Sexual [...] Total Score: 0 04/30/19 21 9:32 AM STOCKROOM CLERK documented as of this encounter Care Teams Concrete Inspector Relationship Specialty Start Date End Date Jaden Thakur DO [address] [place] [address] PCP - General FAMILY PRACTICE 04/10/19 documented as of this encounter
--- OUTSIDE RECORDS SUMMARY | 2024-03-19 20:50 | XMS_ITS | Encounter Summary ---
Author Organization [facility] Address [address] [place] [address]. 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 HOUSE LABORER documented in this encounter Plan of Treatment Not on file documented as of this encounter Visit Diagnoses Not on filedocumented in this encounter Additional Health Concerns Assessment Noted Time PHQ-9 Depression Total Score: 0 04/30/19 21 9:32 AM VAT HOUSE LABORER documented as of this encounter Care Teams Clin Tech Relationship Specialty Start Date End Date Jaden Thakur DO [address] [place] [address] PCP - General FAMILY PRACTICE 04/10/19 documented as of this encounter
--- OUTSIDE RECORDS SUMMARY | 2024-03-19 20:50 | XMS_ITS | Encounter Summary ---
Author Organization [facility] Address [address] [place] [address]. [place], [place] [address] [place] [address] Care Team Providers Care Computer Operations Specialist Name Role Phone Jaden Thakur DO Primary Care Provider + Reason for Visit * Reason Onset Date Comments Results 12/18/2022 Encounter Details Date Type Department Care Team (Late st Contact Info) Description 12/18/2022 Telephone [facility] Medical Group Family & Internal Medicine [facility] [address] [place] [address] Jaden Thakur DO [facility] [place] [address] Results Social History Tobacco Use [...] on file Legal Sex Female 2:33 PM BOTTOM CEMENTER Gender Identity Not on file Sexual Orientation Not on file 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 * Sangita Allison - 12/18/2022 12:28 PM CDT Zakiya-rn case mgr will like to speak with a nurse regarding pt inr please cb# [phone] fax #[phone] documented in this encounter Plan of Treatment Not on file documented as of this encounter Visit Diagnoses Not on filedocumented in this encounter Additional Health Concerns Assessment Noted Time PHQ-9 Depression Total Score: 0 04/30/19 21 9:32 AM BOTTOM CEMENTER documented as of this encounter Care Teams Computer Operations Specialist Relationship Specialty Start Date End Date Jaden Thakur DO [address] [place] [address] PCP - General FAMILY PRACTICE 04/10/19 documented as of this encounter
--- OUTSIDE RECORDS SUMMARY | 2024-03-19 20:50 | XMS_ITS | Encounter Summary ---
Author Organization [facility] Address [address] [place] [address]. [place], [place] [address] [place] [address] Care Team Providers Care Chiropractor Sole Practitioner Name Role Phone Jaden Thakur DO Primary Care Provider + Encounter Details Date Type Department Care Team (Latest Contact Info) Description 04/11/2023 Scan HEALTH INFO SRVCS Scanned, Doc Med [...] on file Legal Sex Female 2:33 PM TRANSMISSION TESTER Gender Identity Not on file Sexual [...] Total Score: 0 04/30/19 21 9:32 AM TRANSMISSION TESTER documented as of this encounter Care Teams Chiropractor Sole Practitioner Relationship Specialty Start Date End Date Jaden Thakur DO [address] [place] [address] PCP - General FAMILY PRACTICE 04/10/19 documented as of this encounter
--- OUTSIDE RECORDS SUMMARY | 2024-03-19 20:50 | XMS_ITS | Encounter Summary ---
Author Organization [facility] Address [address] [place] [address]. [address] [address] Care Team Providers Care Brick Mason Name Role Phone Jaden Thakur DO Primary Care Provider + Reason for Visit * Reason Onset Date Comments Refill Request 04/13/2023 Encounter Details Date Type Department Care Team (Late st Contact Info) Description 04/13/2023 [employer] Message Enc [facility] Medical Group Family & Internal Medicine [facility] [address] [place] [address] Jaden Thakur DO [address] [place] [address] Baclofen Social History Tobacco Use Types Packs/Day Years [...] on file Legal Sex Female 2:33 PM ACCOUNTANT BUDGET Gender Identity Not on file Sexual Orientation Not on file 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
--- OUTSIDE RECORDS SUMMARY | 2024-03-19 20:50 | XMS_ITS | Encounter Summary ---
Author Organization [facility] Address [address] [place] [address]. [place], [place] [address] [place] [address] Care Team Providers Care Firearms Sales Associate Name Role Phone Jaden Thakur DO Primary Care Provider + Encounter Details Date Type Department Care Team (Latest Contact Info) Description 12/12/2022 Scan HEALTH INFO SRVCS Scanned, Doc Med [...] on file Legal Sex Female 2:33 PM PROJECT ECONOMIST Gender Identity Not on file Sexual Orientation [...] Total Score: 0 04/30/19 21 9:32 AM PROJECT ECONOMIST documented as of this encounter Care Teams Firearms Sales Associate Relationship Specialty Start Date End Date Jaden Thakur DO [address] [place] [address] PCP - General FAMILY PRACTICE 04/10/19 documented as of this encounter
--- OUTSIDE RECORDS SUMMARY | 2024-03-19 20:50 | XMS_ITS | Encounter Summary ---
Author Organization [facility] Address [address] [place] [address]. [address] [address] Care Team Providers Care Radiology Technician Name Role Phone Jaden Thakur DO Primary Care Provider + Reason for Visit * Reason Comments Anticoagulation Encounter Details Date Type Department Care Team (Late st Contact Info) Description 12/28/2022 2:10 PM CDT Allied Health/Nurse Visit [facility] Medical Group Family & Internal Medicine [place] [address] [place] [address] Jaden Thakur DO 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 documented as of this encounter Plan of Treatment Not on file documented as of this encounter Procedures Procedure Name Priority Date/Time Associated Diagnosis Comments COLLECT.CAPILLARY (FNGR,HEEL,EAR) Routine 12/28/2022 2:31 PM CDT Current use of termite control servicer anticoagulation PROTHROMBIN TIME, FINGERSTICK Routine 12/28/2022 Current use of termite control servicer anticoagulation documented in this encounter Results * PROTIME/INR, FINGERSTICK (12/28/2022) INR WHOLE BLOOD 2.30 [facility] 12/28/2022 us Jaden Thakur DO LABORATORY Final Re sult [address] [address], documented in this encounter Visit Diagnoses Diagnosis Current use of snf anticoagulation- Primary Encounter for long-term (current) use of anticoagulants documented in this encounter Additional Health Concerns Assessment Noted Time PHQ-9 Depression Total Score: 0 04/30/19 21 9:32 AM FARM OWNER OPERATOR documented as of this encounter Care Teams Radiology Technician Relationship Specialty Start Date End Date Jaden Thakur DO [address] [place] [address] PCP - General FAMILY PRACTICE 04/10/19 documented as of this encounter
--- OUTSIDE RECORDS SUMMARY | 2024-03-19 20:50 | XMS_ITS | Encounter Summary ---
Author Organization [facility] Address [address] [place] [address]. [place], [place] [address] [place] [address] Care Team Providers Care Laboratory Chemist Name Role Phone Jaden Thakur DO Primary Care Provider + Encounter Details Date Type Department Care Team (Latest Contact Info) Description 01/25/2023 Travel Social History Tobacco Use Types Packs/Day [...] on file Legal Sex Female 2:33 PM HARP REGULATOR Gender Identity Not on file Sexual [...] Total Score: 0 04/30/19 21 9:32 AM HARP REGULATOR documented as of this encounter Care Teams Laboratory Chemist Relationship Specialty Start Date End Date Jaden Thakur DO [address] [place] [address] PCP - General FAMILY PRACTICE 04/10/19 documented as of this encounter
--- OUTSIDE RECORDS SUMMARY | 2024-03-19 20:50 | XMS_ITS | Encounter Summary ---
Author Organization [facility] Address [address] [place] [address]. [place], [place] [address] [place] [address] Care Team Providers Care Milling Machine Tender Name Role Phone Jaden Thakur DO Primary Care Provider + Encounter Details Date Type Department Care Team (Latest Contact Info) Description 01/09/2023 Scan HEALTH INFO SRVCS Scanned, Doc Med [...] file Legal Sex Female 2:33 PM ASSISTANT STORE DIRECTOR Gender Identity Not on file Sexual [...] Score: 0 04/30/19 21 9:32 AM ASSISTANT STORE DIRECTOR documented as of this encounter Care Teams Milling Machine Tender Relationship Specialty Start Date End Date Jaden Thakur DO [address] [place] [address] PCP - General FAMILY PRACTICE 04/10/19 documented as of this encounter
--- OUTSIDE RECORDS SUMMARY | 2024-03-19 20:50 | XMS_ITS | Encounter Summary ---
Author Organization [facility] Address [address] [place] [address]. [address] [address] Care Team Providers Care Sound Recording Technician Name Role Phone Jaden Thakur DO Primary Care Provider + Reason for Visit * Reason Onset Date Comments Question 12/28/2022 Encounter Details Date Type Department Care Team (Late st Contact Info) Description 12/28/2022 Telephone [facility] Medical Group Family & Internal Medicine [facility] [address] [place] [address] Jaden Thakur DO [address] [place] [address] Question Social History Tobacco Use [...] on file Legal Sex Female 2:33 PM RECEIVING WEIGHER Gender Identity Not on file Sexual Orientation Not on file 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 Ordered and handed to pt today documented in this encounter Plan of Treatment Not on file documented as of this encounter Visit Diagnoses Diagnosis Cerebral infarction due to embolism of right middle cerebral artery ([facility]/HCC HHS/HCC)- Primary Cerebral embolism with cerebral infarction documented in this encounter Additional Health Concerns Assessment Noted Time PHQ-9 Depression Total Score: 0 04/30/19 21 9:32 AM RECEIVING WEIGHER documented as of this encounter Care Teams Sound Recording Technician Relationship Specialty Start Date End Date Jaden Thakur DO [facility] [place] [address] PCP - General FAMILY PRACTICE 04/10/19 documented as of this encounter
--- OUTSIDE RECORDS SUMMARY | 2024-03-19 20:50 | XMS_ITS | Encounter Summary ---
Author Organization [facility] Address [address] [place] [address]. [place], [place] [address] [place] [address] Care Team Providers Care Work Order Sorting Clerk Name Role Phone Jaden Thakur DO Primary Care Provider + Encounter Details Date Type Department Care Team (Latest Contact Info) Description 01/04/2023 Travel Social History Tobacco Use Types Packs/Day [...] on file Legal Sex Female 2:33 PM BUSINESS SUPPORT PROFESSIONAL Gender Identity Not on file Sexual Orientation [...] Total Score: 0 04/30/19 21 9:32 AM BUSINESS SUPPORT PROFESSIONAL documented as of this encounter Care Teams Work Order Sorting Clerk Relationship Specialty Start Date End Date Jaden Thakur DO [address] [place] [address] PCP - General FAMILY PRACTICE 04/10/19 documented as of this encounter
--- OUTSIDE RECORDS SUMMARY | 2024-03-19 20:50 | XMS_ITS | Encounter Summary ---
Author Organization [facility] Address [address] [place] [address]. [address] [address] Care Team Providers Care Road Consultant Name Role Phone Romy Pena DO Primary Care Provider + Reason for Visit * Reason Onset Date Comments Medication Request 12/19/2022 Encounter Details Date Type Department Care Team (Late st Contact Info) Description 12/19/2022 Telephone [facility] Medical Group Family & Internal Medicine [facility] [address] [place] [address] Romy Pena DO [address] [place] [address] Medication Request Social History Tobacco Use Types Packs/Day [...] on file Legal Sex Female 2:33 PM LEGISLATIVE AIDE Gender Identity Not on file Sexual Orientation Not on file 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 Scheduled follow up with PCP. Patient also needed an RX for Warfarin 3.5 mg daily. Patient will also come to the office for a PT/INR finger stick on 12/19/22. Opportunity given for all questions to be answered, no further needs voiced at this time. Records requested from [facility] (fax number [phone]). -12/19/22 * Laura Becker RN - 12/19/2022 12:37 PM CDT Phone was disconnected. Tried to call back, no answer. -12/19/22 * Hodan Balbuena - 12/19/2022 10:16 AM CDT Refill request received from Patient Medication: [facility]in [facility] [place] [place] Last visit with ROMY PENA in FAMILY PRACTICE was on: 09/15/2022 in [facility] Appointments Date Time Provider Department Center 01/12/2023 9:40 AM Romy Pena DO [facility] Pts states need for INR and refill for blood thinners. Please advise. Pts states hewas waiting charge preparation technician from yesterday as well. documented in this encounter Plan of Treatment Not on file documented as of this encounter Visit Diagnoses Diagnosis CVA (cerebral vascular accident) (CMS/HCC HHS/HCC)- Primary Unspecified cerebral artery occlusion with cerebral infarction documented in this encounter Additional Health Concerns Assessment Noted Time PHQ-9 Depression Total Score: 0 04/30/19 21 9:32 AM LEGISLATIVE AIDE documented as of this encounter Care Teams Road Consultant Relationship Specialty Start Date End Date Romy Pena DO [address] [place] [address] PCP - General FAMILY PRACTICE 04/10/19 documented as of this encounter
--- OUTSIDE RECORDS SUMMARY | 2024-03-19 20:50 | XMS_ITS | Encounter Summary ---
Author Organization [facility] Address [address] [place] [address]. 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 No / Unsure 10/26/2021 11:06 AM CDT documented as of this encounter Plan of Treatment Not on file documented as of this encounter Visit Diagnoses Not on filedocumented in this encounter Additional Health Concerns Assessment Noted Time PHQ-9 Depression Total Score: 0 04/30/19 21 9:32 AM SAFE AND VAULT SERVICE MECHANIC documented as of this encounter Care Teams Horologist Apprentice Relationship Specialty Start Date End Date Jaden Thakur DO [address] [place] [address] PCP - General FAMILY PRACTICE 04/10/19 documented as of this encounter
--- OUTSIDE RECORDS SUMMARY | 2024-03-19 20:50 | XMS_ITS | Encounter Summary ---
Author Organization [facility] Address [address] [place] [address]. [place], [place] [id number] [place] [address] Care Team Providers Care Dry Cell Battery Assembler Name Role Phone Jaden Thakur DO Primary Care Provider + Encounter Details Date Type Department Care Team (Latest Contact Info) Description 09/15/2022 Travel Social History Tobacco Use Types Packs/Day [...] Sex Female 2:33 PM SAFE AND VAULT INSTALLER Gender Identity Not on file Sexual [...] 04/30/19 21 9:32 AM SAFE AND VAULT INSTALLER documented as of this encounter Care Teams Dry Cell Battery Assembler Relationship Specialty Start Date End Date Jaden Thakur DO [address] [place] [address] PCP - General FAMILY PRACTICE 04/10/19 documented as of this encounter
--- OUTSIDE RECORDS SUMMARY | 2024-03-19 20:50 | XMS_ITS | Encounter Summary ---
Author Organization [facility] Address [address] [place] [address]. 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 Opportunity given for all questions to be answered, no further needs voiced at this time. LL-01/25/23 POST PARTUM * Jaden Thakur DO - 01/25/2023 2:35 PM CST Please relay to pt this information, as pt's was very concerned about taking these. POST PARTUM * Laura Becker RN - 01/25/2023 2:09 PM CST Called and spoke with pharmacist. She stated that they explained to the patient to take them at sperate time to help with longer pain relief. LL-01/25/23 POST PARTUM * Jaden Thakur DO - 01/25/2023 11:23 AM CST Please reach out to Julio C in [place]. Pt states she was told by their pharmacy that she couldn't take Stark and naproxen together. I'm uncertain why this relayed to pt, so please clarify this. POST PARTUM documented in this encounter Plan of Treatment Not on file documented as of this encounter Visit Diagnoses Not on filedocumented in this encounter Additional Health Concerns Assessment Noted Time PHQ-9 Depression Total Score: 0 04/30/19 21 9:32 AM RN POST PARTUM documented as of this encounter Care Teams Tank Riveter Relationship Specialty Start Date End Date Jaden Thakur DO [address] [place] [address] PCP - General FAMILY PRACTICE 04/10/19 documented as of this encounter
--- OUTSIDE RECORDS SUMMARY | 2024-03-19 20:50 | XMS_ITS | Encounter Summary ---
Author Organization [facility] Address [address] [place] [address]. [place], [place] [address] [place] [address] Care Team Providers Care Derrick Hand Name Role Phone Jaden Thakur DO Primary Care Provider + Encounter Details Date Type Department Care Team (Latest Contact Info) Description 10/24/2022 Scan HEALTH INFO SRVCS Scanned, Doc Med [...] on file Legal Sex Female 2:33 PM PARTNER MANAGEMENT CONSULTANT Gender Identity Not on file Sexual [...] Total Score: 0 04/30/19 21 9:32 AM PARTNER MANAGEMENT CONSULTANT documented as of this encounter Care Teams Derrick Hand Relationship Specialty Start Date End Date Jaden Thakur DO [address] [place] [address] PCP - General FAMILY PRACTICE 04/10/19 documented as of this encounter
--- OUTSIDE RECORDS SUMMARY | 2024-03-19 20:50 | XMS_ITS | Encounter Summary ---
Author Organization [facility] Address [address] [place] [address]. 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 tn * Jaden Thakur DO - 11/29/2022 3:47 PM CDT Yes, that is fine to do so. * Tia Jacobo MA - 11/29/2022 1:47 PM CDT Tube feeding,PEG, CVA * Jaden Thakur DO - 11/29/2022 1:09 PM CDT We likely can, but would need to know the indication. * Pilar Epperson - 11/29/2022 11:02 AM CDT [facility] would like to know if you will [facility]. [phone] Are able to verbally auth on VM. documented in this encounter Plan of Treatment Not on file documented as of this encounter Visit Diagnoses Not on filedocumented in this encounter Additional Health Concerns Assessment Noted Time PHQ-9 Depression Total Score: 0 04/30/19 21 9:32 AM GAME AUTHOR documented as of this encounter Care Teams Clerk Specialist Relationship Specialty Start Date End Date Jaden Thakur DO [address] [place] [address] PCP - General FAMILY PRACTICE 04/10/19 documented as of this encounter
--- OUTSIDE RECORDS SUMMARY | 2024-03-19 20:50 | XMS_ITS | Encounter Summary ---
Author Organization [facility] Address [address] [place] [address]. [place], [place] [address] [place] [address] Care Team Providers Care Health And Safety Representative Name Role Phone Jaden Thakur DO Primary Care Provider + Reason for Referral * Consultation (Routine) - Pending Review Specialty Diagnoses / Procedures Referred By Contac t Referred To Contact ORTHOPAEDICS Diagnoses Labral tear of hip joint Procedures OFFICE/OUTPATIENT NEW LOW MDM 30-44 MINUTES OFFICE/OUTPT VISIT,NEW,LEVL IV OFFICE/OUTPT VISIT,NEW,LEVL V OFFICE/OUTPT VISIT,EST,LEVL III OFFICE/OUTPT VISIT,EST,LEVL IV OFFICE/OUTPT VISIT,EST,LEVL V Jaden Thakur DO [address] [place] [address] Phone: tel: fax: Referral ID Status Reason Start Date Expiration Date Visits Requested Visits Authorized [id number] Pending Review Specialty Services 04/12/2023 05/12/2024 1 1 Scheduling Instructions Nora NICAL ADJUSTER Reason for Visit * Reason Onset Date Comments Results 04/12/2023 Encounter Details Date Type Department Care Team (Late st Contact Info) Description 04/12/2023 Telephone [facility] Medical Group Family & Internal Medicine [facility] [address] [place] [address] Jaden Thakur DO [address] [place], [place] [id number] Results Social History Tobacco Use Types Packs/Day [...] on file Legal Sex Female 2:33 PM TECHNICAL ADJUSTER Gender Identity Not on file Sexual Orientation Not on file 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 They are requesting she see an ortho. The patient states she saw a HIGHWAY LANDSCAPE ARCHITECT with the last name Shy at [facility]. Referral placed. 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 Pt has been following with pain management, so pt can either follow-up with them or we can refer back to orthopedics. Can send results to pain management irvin would like us to. NICAL ADJUSTER NICAL ADJUSTER documented in this encounter Plan of Treatment Scheduled Referrals Name Type Priority Associated Diagnoses Orde r Schedule Ambulatory referral to Orthopedics (OTHER) Referral Routine Labral tear of hip joint Ordered: 04/12/2023 documented as of this encounter Visit Diagnoses Diagnosis Labral tear of hip joint- Primary documented in this encounter Additional Health Concerns Assessment Noted Time PHQ-9 Depression Total Score: 0 04/30/19 21 9:32 AM TECHNICAL ADJUSTER documented as of this encounter Care Teams Health And Safety Representative Relationship Specialty Start Date End Date Jaden Thakur DO [address] [place] [address] PCP - General FAMILY PRACTICE 04/10/19 documented as of this encounter
--- OUTSIDE RECORDS SUMMARY | 2024-03-19 20:50 | XMS_ITS | Encounter Summary ---
Author Organization [facility] Address [address] [place] [address]. [address] [address] Care Team Providers Care Glass Novelty Maker Name Role Phone Jaden Thakur DO Primary Care Provider + Reason for Visit * Reason Comments Anticoagulation Encounter Details Date Type Department Care Team (Late st Contact Info) Description 01/01/2023 2:20 PM CDT Allied Health/Nurse Visit [facility] Medical Group Family & Internal Medicine [place] [place] [address] Jaden Thakur DO [facility] [place], [place] [phone] Anticoagulation Social History Tobacco Use Types Packs/Day [...] on file Legal Sex Female 2:33 PM REGISTERED NURSE CARDIAC Gender Identity Not on file Sexual Orientation Not on file 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 Venous drawn. Dr. Thakur out of office today. documented in this encounter Plan of Treatment Not on file documented as of this encounter Procedures Procedure Name Priority Date/Time Associated Diagnosis Comments PROTHROMBIN TIME, VENOUS Routine 01/01/2023 2:24 PM CDT Current use of nursing home anticoagulation COLLECTION VENOUS BLOOD VENIPUNCTURE Routine 01/01/2023 2:22 PM CDT Current use of nursing home anticoagulation COLLECT.CAPILLARY (FNGR,HEEL,EAR) Routine 01/01/2023 2:08 PM CDT Current use of nursing home anticoagulation PROTHROMBIN TIME, FINGERSTICK Routine 01/01/2023 Current use of terminal carman anticoagulation documented in this encounter Results * (ABNORMAL) PROTIME/INR, VENOUS (01/01/2023 2:24 PM CDT) [facility] PROTIME 35.4(H) 9.3 - 11.6 SEC 01/01/2023 8:02 PM CDT [facility] INR 3.7(H) 0.9 - 1.1 01/01/2023 8:02 PM CDT [facility], [facility] Comment: TREATMENT OR PROPHYLAXIS AGAINST: ?? THERAPEUTIC RANGE (INR): ?VENOUS THROMBOSIS ? 2.0-3.0 ?PULMONARY EMBOLUS ? 2.0-3.0 ?? MECHANICAL PROSTHETIC VALVES ? 2.5-3.5 01/01/2023 2:24 PM CDT us Jaden Thakur DO LABORATORY Final Re sult Performing Organization Address City/[facility]/ZIP Co de Phone Number [facility] [address] [place] [address], [place] [phone] * PROTIME/INR, FINGERSTICK (01/01/2023) INR WHOLE BLOOD 4.20 -[facility] Comment:Venous drawn 01/01/2023 us Jaden Thakur DO LABORATORY Edited R esult - Final Performing Organization Address [facility] Co de Phone Number [facility] [address] [place] [address], documented in this encounter Visit Diagnoses Diagnosis Current use of nursing home anticoagulation- Primary Encounter for long-term (current) use of anticoagulants documented in this encounter Additional Health Concerns Assessment Noted Time PHQ-9 Depression Total Score: 0 04/30/19 21 9:32 AM REGISTERED NURSE CARDIAC documented as of this encounter Care Teams Glass Novelty Maker Relationship Specialty Start Date End Date Jaden Thakur DO [address] [place] [address] PCP - General FAMILY PRACTICE 04/10/19 documented as of this encounter
--- OUTSIDE RECORDS SUMMARY | 2024-03-19 20:50 | XMS_ITS | Encounter Summary ---
Author Organization [facility] Address [address] [place] [address]. [place], [place] [address] [place] [address] Care Team Providers Care Food Assembler Commissary Kitchen Name Role Phone Jaden Thakur DO Primary Care Provider + Reason for Visit * Reason Comments Cva Patient presents for a 1 month follow up. UTI Patient is requestin g a ua. She states she has had back pain since last weekend. Encounter Details Date Type Department Care Team (Late st Contact Info) Description 02/15/2023 10:40 AM BANKING CONSULTANT Office Visit [facility] Family [facility] [address] [phone] Jaden Thakur DO [address] [place] [address] Cva (Patient presents for a 1 month follow up. ); UTI (Patient is requesting a ua. She states she has had back pain since last weekend. 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 Are you allergic to eggs, chicken or chicken feathers? No 2. Do you currently have an illness or fever? No 3. Have you ever had an allergic reaction to the influenza vaccine? No 4. Do you have Guillain-[place] Syndrome? No Flu vaccine administered in Right Deltoid. No flashback seen and no adverse reactions were observedwhile the patient was in the clinic. Pt left clinic in no acute distress. Verified by: TLL. ING CONSULTANT * Jaden Thakur DO - 02/15/2023 10:40 AM CST Images from the original note were not included. GENERAL OFFICE VISIT Encounter Date: 02/15/2023 Chief Complaint: 42-year-old female presents for Cva (Patient presents for a 1 month follow up. ) and UTI (Patient is requesting a ua. She states she has had back pain since last weekend. ) History of Present Illness: Pt presents for 1 month follow-up. Pt has been having low back pain since last weekend. They are concerned she may have a UTI. She hashad issues with urinary retention since the CVA. Office Visit on 02/15/2023 Component Date Value Ref Range Status COLOR (U) 02/15/2023 YELLOW YELLOW Final TRANSPARENCY 02/15/2023 CLEAR CLEAR Final GLUCOSE (U) 02/15/2023 NEGATIVE NEGATIVE MG/DL Final BILIRUBIN (U) 02/15/2023 NEGATIVE NEGATIVE Final KETONES (U) 02/15/2023 NEGATIVE NEGATIVE MG/DL Final SPECIFIC GRAVITY (U) 02/15/2023 1.025 1.001 - 1.035 Final BLOOD (U) 02/15/2023 NEGATIVE NEGATIVE Final U PH 02/15/2023 6.5 5.0 - 9.0 Final PROTEIN (U) 02/15/2023 NEGATIVE NEGATIVE mg/dL Final UROBILINOGEN 02/15/2023 0.2 0.2 - 1.0 EU/dL = mg/dL Final NITRITES 02/15/2023 NEGATIVE NEGATIVE MG/DL Final LEUKOCYTES (U) 02/15/2023 TRACE (A) NEGATIVE Final Pt has potential sutures left in place following with neurosurgery. They were removed on 01/24/[address] Martin's office. They are painful upon movement. Pt does have some extra fluid in the area as well; CT scan done at recent ER evaluation showed possible seroma which would be consistent with appearance today. She was placed on Keppra by Dr. Martin but has not been able to take this for the past 5 days. Per available documentation, their office received a refill request as of today. Pt did end up going to the ER due to her left hip pain. They did not find any acute pathology on their assessment. She will see orthopedics later today. For pain, she is on duloxetine, Phillips, gabapentin, oxycodone IR, cyclobenzaprine, and baclofen. Muscle relaxers and narcotics are not mixed. Pt has been using two 5-325 mg at a time. They are still using oxycodone at night, although they think the two hydrocodone seems to work better. There is concern her wheelchair seat may be part of the etiology of her pain. She is also needing new equipment for her arm sling on the left arm. ROS: Review of Systems Constitutional: Negative for fever. Respiratory: Negative for shortness of breath. Genitourinary: See HPI Musculoskeletal: See HPI Skin: See HPI Neurological: See HPI Medications: Current Outpatient Medications on File Prior to Visit Medication Sig AFO BRACE, DME, Apply 1 Device topically daily. baclofen (LIORESAL) 5 MG tablet Take 1 tablet (5 mg total) by mouth daily. bethanechol (URECHOLINE) 25 MG tablet Take 1 tablet (25 mg total) by mouth 3 (three) times daily. Cetirizine HCl 10 MG TABLET DISPERSIBLE Take 1 tablet (10 mg total) by mouth daily. Cholecalciferol (VITAMIN D3) 50 MCG (2000 UT) Tab Take by mouth daily. HYDROcodone-acetaminophen (NORCO) 5-325 MG tablet Take 1-2 tablets by mouth every 6 (six) hours as needed for Pain. Indications: Acute Pain < 7 Day Supply hydrOXYzine (ATARAX) 25 MG tablet Take 1 tablet (25 mg total) by mouth every 6 (six) hours as needed. levETIRAcetam (KEPPRA) 500 MG tablet Take 1 tablet (500 mg total) by mouth 2 (two) times daily. metoprolol tartrate (LOPRESSOR) 25 MG tablet Take 1 tablet (25 mg total) by mouth 2 (two) times daily. naproxen (NAPROSYN) 375 MG tablet Take 1 tablet (375 mg total) by mouth 2 (two) times daily with meals. pantoprazole EC (PROTONIX) 40 MG tablet Take 1 tablet (40 mg total) by mouth daily. SIT TO STAND LIFT, DME, 1 Device by Does not apply route as needed. Order for Electric Sit to Stand tamsulosin (FLOMAX) 0.4 MG Cap Take 1 [...] embolism of right middle cerebral artery (HHS/HCC) (CMS/HCC) Past Medical History: Diagnosis Date Allergy Common femoral artery injury, right, subsequent encounter 12/29/2022 GERD (gastroesophageal reflux disease) Migraine 10/19/2022 Presence of externally removable percutaneous endoscopic gastrostomy (PEG) tube ([facility]/HCC) ([facility]/HCC)2022 Received intravenous tissue plasminogen activator (tPA) in emergency department 10/19/2022 Trochanteric bursitis of left hip 12/08/2022 Past Surgical History: Procedure Laterality Date SECTION x 2 CHOLECYSTECTOMY SCREENING COLONOSCOPY August 2021, repeat in 5 years Social History Socioeconomic History Marital status: Number of children: 2 Occupational History 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Tobacco Use Smoking status: Former Packs/day: 0.50 Years: 10.00 Additional pack years: 0.00 Total pack years: 5.00 Types: Cigarettes Quit date: 03/12/2015 Years since quittin.9 Smokeless tobacco: Never Substance and Sexual Activity Alcohol use: Yes Comment: 2 drinks every 6 months Drug use: Never Sexual activity: Yes Partners: Male control/protection: OCP Family History Problem Relation Name Age of Onset Hypertension Mother Reny Disla Thyroid Mother Reny Disla Diabetes Mother Reny Disla Alcohol Abuse Father Adam Martin Family Status Relation Name Status Mother Reny Disla (Not Specified) Father Adam Martin (Not Specified) Objective: Filed Vitals: 02/15/23 1101 BP: 106/72 Pulse: 76 Resp: 16 Temp: 97.5 ??F (36.4 ??C) TempSrc: Skin Height: 1.626 m (5' 4 ) Physical [...] There is no abdominal tenderness. Skin: Comments: Surgical site on right temporal region shows no infection but two sutures in place along incision line Neurological: Mental Status: She is alert. Comments: Similar to previous exam Assessment & Plan: Consuelo was seen today for cva and uti. Diagnoses and all orders for this visit: Acute cystitis without hematuria - nitrofurantoin, macrocrystal-monohydrate, (MACROBID) 100 MG capsule; Take 1 capsule (100 mg total) by mouth 2 (two) times daily for 7 days. Cerebrovascular accident (CVA) due to thrombosis of right middle cerebral artery (HHS/HCC) (CMS/HCC) - cyclobenzaprine (FLEXERIL) 5 MG tablet; Take 1 tablet (5 mg total) by mouth 3 (three) times daily. - gabapentin (NEURONTIN) 300 MG capsule; Take 1 capsule (300 mg total) by mouth 3 (three) times daily. Subluxation of left shoulder joint, subsequent encounter - cyclobenzaprine (FLEXERIL) 5 MG tablet; Take 1 tablet (5 mg total) by mouth 3 (three) times daily. - gabapentin (NEURONTIN) 300 MG capsule; Take 1 capsule (300 mg total) by mouth 3 (three) times daily. Former smoker - [18736] Prevnar 20 (Pneumococcal) Need for prophylactic vaccination against Streptococcus pneumoniae (pneumococcus) - [39748] Prevnar 20 (Pneumococcal) Need for immunization against influenza - [67530] FLU VACC QUAD 6 MONTHS+ 0.5 ML (SINGLE DOSE SYRINGE FLUZONE, FLUARIX, FLULAVAL OR SINGLE DOSE VIAL FLUZONE) Acute low back pain without sciatica, unspecified back pain laterality - URINALYSIS AUTO DIP - CULTURE URINE; Future - CULTURE URINE - DULoxetine (CYMBALTA) 60 MG capsule; Take 1 capsule (60 mg total) by mouth daily. Leukocytes in urine - CULTURE URINE; Future - CULTURE URINE Anxiety Discussion & Summary: Will start on Macrobid today and obtain urine culture. Will have patient try Phillips for all pain medication needs given good control with this and simplification of medication dosing. Will increase Cymbalta today. Had Laura Becker RN reach out to Dr. Martin's office today regarding retained sutures andhad to leave a message. Also recommended to patient to reach out to that as well. Will give flu shot and Prevnar 20. Patient would benefit from changes in wheelchair to improve her hip pain and arm issues. Order signed today. Let patient follow-up in 4 to 6 weeks for repeat assessment. Patient and verbalized understanding. I personally spent a total of 55 minutes on the day of the encounter. This includes bbui-mg-naec and aft-fcfp-tv-face time I provided on the day of the encounter & excludes time spent performing separately reportable services. Jaden Thakur DO ING CONSULTANT documented in this encounter Plan of Treatment Not on file documented as of this encounter Procedures Procedure Name Priority Date/Time Associated Diagnosis Comments URINE BACTERIA CULTURE Routine 02/15/2023 11:22 AM BANKING CONSULTANT Acute low back pain without sciatica, unspecified back pain laterality Leukocytes in urine URINALYSIS AUTO DIP Routine 02/15/2023 Acute low back pain without sciatica, unspecified back pain laterality documented in this encounter Results * CULTURE URINE (02/15/2023 11:22 AM BANKING CONSULTANT) CULTURE RESULT [employer] [place], [place] Comment: ??CULTURE, URINE, ROUTINE ?Micro Number: ?[id number] ??Test Status: ? Final ??Specimen Source: ?? [...] OBTAINED BY CLEAN CATCH PROCEDURE / Unknown 02/15/2023 11:22 AM BANKING CONSULTANT 02/16/2023 3:17 AM BANKING CONSULTANT Narrative Resulting Agency Comment Performing Organization Information: ?Site ID: [email or web address] ?Name: [email or web address] [facility] ?Address: [facility] [place] [address] ?Director: [place] Ambrosio us Jaden Thakur DO MICROBIOLOGY - GENERAL O RDERABLES Final Result Performing Organization Address City/[facility]/ZIP Co de Phone Number [facility] [phone], * (ABNORMAL) URINALYSIS AUTO DIP (02/15/2023) COLOR (U) YELLOW YELLOW [facility] TRANSPARENCY CLEAR [facility] GLUCOSE (U) NEGATIVE NEGATIVE MG/DL [facility] BILIRUBIN (U) NEGATIVE NEGATIVE [facility] KETONES MG/DL (U) NEGATIVE NEGATIVE MG/DL [facility] SPECIFIC GRAVITY (U) 1.025 1.001 - 1.035 [facility] BLOOD (U) NEGATIVE NEGATIVE [facility] U PH 6.5 5.0 - 9.0 [facility] PROTEIN (U) NEGATIVE NEGATIVE mg/dL [facility] UROBILINOGEN 0.2 0.2 - 1.0 EU/dL = mg/dL [facility] NITRITES NEGATIVE NEGATIVE MG/DL [facility] LEUKOCYTES (U) TRACE(A) NEGATIVE [facility] URINE SPECIMEN OBTAINED BY CLEAN CATCH PROCEDURE / Unknown 02/15/2023 us Jaden Thakur DO URINE ORDERABLES Final R esult Performing Organization Address [facility]/ZIP Co de Phone Number [facility] [address] [place] [address], documented in this encounter Visit Diagnoses Diagnosis Acute cystitis without hematuria- Primary Acute cystitis Cerebrovascular accident (CVA) due to thrombosis of right middle cerebral artery (CMS/HCC HHS/HCC) Subluxation of left shoulder joint, subsequent encounter Former smoker Personal history of tobacco use, presenting hazards to health Need for prophylactic vaccination against Streptococcus pneumoniae (pneumococcus) Need for prophylactic vaccination against streptococcus pneumoniae (pneumococcus) Need for immunization against influenza Need for prophylactic vaccination and inoculation against influenza Acute low back pain without sciatica, unspecified back pain laterality Leukocytes in urine Other nonspecific finding on examination of urine Anxiety Anxiety state, unspecified Acute hip pain, left documented in this encounter Additional Health Concerns Assessment Noted Time PHQ-9 Depression Total Score: 0 04/30/19 21 9:32 AM BANKING CONSULTANT documented as of this encounter Care Teams Food Assembler Commissary Kitchen Relationship Specialty Start Date End Date Jaden Thakur DO [address] [place] [phone] PCP - General FAMILY PRACTICE 04/10/19 documented as of this encounter
--- OUTSIDE RECORDS SUMMARY | 2024-03-19 20:50 | XMS_ITS | Encounter Summary ---
Author Organization [facility] Address [address] [place] [address]. [place], [place] [address] [place] [address] Care Team Providers Care Class A Lineman Name Role Phone Jaden Thakur DO Primary Care Provider + Encounter Details Date Type Department Care Team (Latest Contact Info) Description 05/17/2023 Scan HEALTH INFO SRVCS Scanned, Doc Med [...] on file Legal Sex Female 2:33 PM FOOD GENERAL MANAGER Gender Identity Not on file Sexual [...] Total Score: 0 04/30/19 21 9:32 AM FOOD GENERAL MANAGER documented as of this encounter Care Teams Class A Lineman Relationship Specialty Start Date End Date Jaden Thakur DO [address] [place] [address] PCP - General FAMILY PRACTICE 04/10/19 documented as of this encounter
--- OUTSIDE RECORDS SUMMARY | 2024-03-19 20:50 | XMS_ITS | Encounter Summary ---
Author Organization [facility] Address [address] [place] [address]. [place], [place] [address] [place] [address] Care Team Providers Care Hot Head Machine Operator Name Role Phone Jaden Thakur DO Primary Care Provider + Encounter Details Date Type Department Care Team (Latest Contact Info) Description 04/05/2023 Scan HEALTH INFO SRVCS Scanned, Doc Med [...] on file Legal Sex Female 2:33 PM INDUSTRIAL MAINTENANCE MECHANIC Gender Identity Not on file Sexual [...] Total Score: 0 04/30/19 21 9:32 AM INDUSTRIAL MAINTENANCE MECHANIC documented as of this encounter Care Teams Hot Head Machine Operator Relationship Specialty Start Date End Date Jaden Thakur DO [address] [place] [address] PCP - General FAMILY PRACTICE 04/10/19 documented as of this encounter
--- OUTSIDE RECORDS SUMMARY | 2024-03-19 20:50 | XMS_ITS | Encounter Summary ---
Author Organization [facility] Address [address] [place] [address]. [address] [address] Care Team Providers Care Cell Pourer Name Role Phone Jaden Thakur DO Primary Care Provider + Reason for Visit * Reason Onset Date Comments Medication Problem 01/04/2023 Encounter Details Date Type Department Care Team (Late st Contact Info) Description 01/04/2023 Telephone [facility] Family [facility] [address] [place] [address] Jaden Thakur DO [address] [place] [address] Medication Problem Social History Tobacco Use Types Packs/Day [...] on file Legal Sex Female 2:33 PM CHEMICAL DEPENDENCY COUNSELOR Gender Identity Not on file Sexual Orientation Not on file 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 * Pilar Epperson - 01/04/2023 1:38 PM CDT Consuelo is having surgery and will need to transition to Lovonox? She will be in today at 220pm ifyou have any questions. documented in this encounter Plan of Treatment Not on file documented as of this encounter Visit Diagnoses Not on filedocumented in this encounter Additional Health Concerns Assessment Noted Time PHQ-9 Depression Total Score: 0 04/30/19 21 9:32 AM CHEMICAL DEPENDENCY COUNSELOR documented as of this encounter Care Teams Cell Pourer Relationship Specialty Start Date End Date Jaden Thakur DO [address] [place] [phone] PCP - General FAMILY PRACTICE 04/10/19 documented as of this encounter
--- OUTSIDE RECORDS SUMMARY | 2024-03-19 20:50 | XMS_ITS | Encounter Summary ---
Author Organization [facility] Address [address] [place] [address] [address] Care Team Providers Care Mortgage Consultant Name Role Phone Jaden Thakur DO Primary Care Provider + Reason for Visit * Reason Comments Cva The patient presents for routine follow up. Encounter Details Date Type Department Care Team (Late st Contact Info) Description 03/21/2023 10:40 AM MANAGER ENVIRONMENTAL HEALTH AND SAFETY Office Visit [facility] Family & Internal Medicine [address] [phone] Jaden Thakur DO [address] [place] [address] [phone] Cva (The patient presents for routine follow up. 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 file documented as of this encounter Last Filed Vital Signs Vital Sign Reading Time Taken Comments Blood Pressure 104/68 03/21/2023 11:08 AM MANAGER ENVIRONMENTAL HEALTH AND SAFETY Pulse 75 03/21/2023 11:08 AM MANAGER ENVIRONMENTAL HEALTH AND SAFETY Temperature 37.1 ??C (98.7 ??F) 03/21/2023 11:[address] Respiratory Rate 16 03/21/2023 11:08 AM MANAGER ENVIRONMENTAL HEALTH AND SAFETY Oxygen Saturation 98% 03/21/2023 11:08 AM MANAGER ENVIRONMENTAL HEALTH AND SAFETY Inhaled Oxygen Concentration - - Weight 93.7 kg (206 lb 8 oz) 03/21/2023 11:08 AM MANAGER ENVIRONMENTAL HEALTH AND SAFETY Height 162.6 cm (5' 4 ) 03/21/2023 11:08 AM MANAGER ENVIRONMENTAL HEALTH AND SAFETY Body Mass Index 35.45 03/21/2023 11:08 AM MANAGER ENVIRONMENTAL HEALTH AND SAFETY documented in this encounter Progress Notes * Jaden Thakur, DO - 03/21/2023 10:40 AM CST Images from the original note were not included. GENERAL OFFICE VISIT Encounter Date: 03/21/2023 Chief Complaint: 42-year-old female presents for Cva (The patient presents for routine follow up. ) History of Present Illness: Pt presents for 1 month follow-up. At last OV, we switched pt to [place] only for pain management and increased duloxetine. Pt also had issue with possible retained sutures and was referred to surgeon office for this. Pt saw neurosurgery since last OV. They did remove one of the sutures. She was noted to be improving otherwise. She will have another head CT prior to next OV. Pt will have a return to work discussion with decisions regarding her return to work. She has not had a functional test. 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 Her left arm is still not able to be used. Her left leg is improving, and she was able to use a walker to walk the entire day without a wheelchair. She was able to lift her leg off the bed as well. They are needing to discuss her meds in detail today as she will run out of insurance. We will be stopping some medications due to this. Her urinary symptoms have improved. ROS: Review of Systems Constitutional: Negative for fever. Respiratory: Negative for shortness of breath. Genitourinary: Stable Musculoskeletal: See HPI Skin: See HPI Neurological: See HPI Medications: Current Outpatient Medications on File Prior to Visit Medication Sig AFO BRACE, DME, Apply 1 Device topically daily. aspirin 81 MG chewable tablet Chew 125 mg by mouth daily. baclofen (LIORESAL) 5 MG tablet Take 0.5 tabs daily for 2 weeks and then stop Cetirizine HCl 10 MG TABLET DISPERSIBLE Take 1 tablet (10 mg total) by mouth daily. Cholecalciferol (VITAMIN D3) 50 MCG (2000 UT) Tab Take by mouth daily. cyclobenzaprine (FLEXERIL) 5 MG tablet Take 1 tablet (5 mg total) by mouth 3 (three) times daily. DULoxetine (CYMBALTA) 60 MG capsule Take 1 capsule (60 mg total) by mouth daily. gabapentin (NEURONTIN) 300 MG capsule Take 1 capsule twice daily for 2 weeks, then take 1 capsule daily for 2 weeks, then stop medication levETIRAcetam (KEPPRA) 500 MG tablet Take 1 tablet (500 mg total) by mouth 2 (two) times daily. SIT TO STAND LIFT, DME, 1 Device by Does not apply route as needed. Order for Electric Sit to Stand No current facility-administered medications on file prior [...] to embolism of right middle cerebral artery ([facility]/HCC) ([facility]) Past Medical History: Diagnosis Date Allergy Common femoral artery injury, right, subsequent encounter 12/29/2022 GERD (gastroesophageal reflux disease) Migraine 10/19/2022 Presence of externally removable percutaneous endoscopic gastrostomy (PEG) tube ([facility]/HCC) ([facility])2022 Received intravenous tissue plasminogen activator (tPA) in [...] Types: Cigarettes Quit date: 03/12/2015 Years since quittin.0 Smokeless tobacco: Never Substance and Sexual Activity [...] Adam Martin (Not Specified) Objective: Filed Vitals: 03/21/23 1108 BP: 104/68 Pulse: 75 Resp: 16 Temp: 98.7 ??F (37.1 ??C) TempSrc: Skin SpO2: 98% Weight: 93.7 kg (206 lb 8 oz) Height: 1.626 m (5' 4 ) Physical Exam Vitals and nursing note reviewed. Constitutional: Comments: Sitting in wheelchair comfortably, continued overall improvement HENT: Head: Comments: Cranial abnormality consistent with surgical history, improved from previous exam Right Ear: External ear normal. Left Ear: External ear normal. Eyes: Conjunctiva/sclera: Conjunctivae normal. Cardiovascular: Rate and Rhythm: Normal rate and regular rhythm. Heart sounds: Normal heart sounds. No murmur heard. No friction rub. No gallop. Pulmonary: Effort: Pulmonary effort is normal. No respiratory distress. Breath sounds: Normal breath sounds. No wheezing or rales. Neurological: Mental Status: She is alert. Comments: Full exam deferred today Assessment & Plan: Consuelo was seen today for cva . Diagnoses and all orders for this visit: Acquired skull defect Cerebrovascular accident (CVA) due to thrombosis of right middle cerebral artery (HHS/HCC) (CMS/HCC) Subluxation of left shoulder joint, subsequent encounter - HYDROcodone-acetaminophen (NORCO) 10-325 MG tablet; Take 0.5-1 tablets by mouth every 6 (six) hours as needed for Pain. Indications: Chronic Pain Chronic left hip pain - HYDROcodone-acetaminophen (NORCO) 10-325 MG tablet; Take 0.5-1 tablets by mouth every 6 (six) hours as needed for Pain. Indications: Chronic Pain Opioid use - naloxone (NARCAN) 4 MG/0.1ML nasal spray; 1 spray by Nasal route as needed for Opioid reversal. may repeat every 2 to 3 minutes in alternating nostrils until medical assistance becomes available Anxiety - hydrOXYzine (ATARAX) 25 MG tablet; Take 1 tablet (25 mg total) by mouth every 8 (eight) hours as needed. Gastroesophageal reflux disease, unspecified whether esophagitis present - pantoprazole EC (PROTONIX) 40 MG tablet; Take 1 tablet (40 mg total) by mouth daily. Migraine without aura and without status migrainosus, not intractable - verapamil ER (VERELAN PM) 120 MG 24 hr capsule; Take 1 capsule (120 mg total) by mouth nightly atbedtime. Hypertension, unspecified type - metoprolol tartrate (LOPRESSOR) 25 MG tablet; Take 1 tablet (25 mg total) by mouth 2 (two) times daily. Discussion & Summary: Will formally stop bethanechol, wean baclofen, and attempt to wean gabapentin. Will also attempt tostop tamsulosin. Send out 90-day supply of medications otherwise. Continue with PT. 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 Will have pt f/u in 1-2 months or sooner if needed. I personally spent a total of 52 minutes on the day of the encounter. This includes twow-xy-fkpk and bhc-slki-hy-face time I provided on the day of the encounter & excludes time spent performing separately reportable services. Jaden Thakur DO [facility] ENVIRONMENTAL HEALTH AND SAFETY documented in this encounter Plan of Treatment Not on file documented as of this encounter Visit Diagnoses Diagnosis Acquired skull defect- Primary Other specified acquired deformity of head Cerebrovascular accident (CVA) due to thrombosis of right middle cerebral artery ([facility]/HCC [facility]) Subluxation of left shoulder joint, subsequent encounter Chronic left hip pain Pain in joint, pelvic region and thigh Opioid use Anxiety Anxiety state, unspecified Gastroesophageal reflux disease, unspecified whether esophagitis present Migraine without aura and without status migrainosus, not intractable Migraine without aura, without mention of intractable migraine without mention of status migrainosus Hypertension, unspecified type documented in this encounter Additional Health Concerns Assessment Noted Time PHQ-9 Depression Total Score: 0 04/30/19 21 9:32 AM MANAGER ENVIRONMENTAL HEALTH AND SAFETY documented as of this encounter Care Teams Mortgage Consultant Relationship Specialty Start Date End Date Jaden Thakur DO [address] [place] [address] PCP - General FAMILY PRACTICE 04/10/19 documented as of this encounter
--- OUTSIDE RECORDS SUMMARY | 2024-03-19 20:50 | XMS_ITS | Encounter Summary ---
Author Organization [facility] Address [address] [place] [address]. [place], [place] [id number] [place] [address] Care Team Providers Care Sports Physician Name Role Phone Jaden Thakur DO Primary Care Provider + Reason for Referral * Consultation (Routine) - Authorized Specialty Diagnoses / Procedures Referred By Contac t Referred To Contact NEUROLOGY Diagnoses Cerebrovascular accident (CVA) due to thrombosis of right middle cerebral artery ([facility]) Procedures OFFICE/OUTPATIENT NEW LOW MDM 30-44 MINUTES OFFICE/OUTPT VISIT,NEW,LEVL IV OFFICE/OUTPT VISIT,NEW,LEVL V OFFICE/OUTPT VISIT,EST,LEVL III OFFICE/OUTPT VISIT,EST,LEVL IV OFFICE/OUTPT VISIT,EST,LEVL V Jaden Thakur DO [address] [place] [address] Phone: tel: fax: [facility] - [facility] [address] [facility], [address] [place] [address] Phone: tel: Referral ID Status Reason Start Date Expiration Date Visits Requested Visits Authorized [id number] Authorized Specialty Services 09/06/2023 06/27/2024 99 99 Reason for Visit * Reason Comments Neurologic Problem Patient presents for a 2 month follow up Encounter Details Date Type Department Care Team (Late st Contact Info) Description 05/28/2023 10:00 AM CDT Office Visit [facility] Family & Internal Medicine [place] [id number] [place] [phone] Jaden Thakur DO [address] [place] [address] Neurologic Problem (Patient presents for a 2 month follow up ) Social History Tobacco Use Types Packs/Day [...] on file Legal Sex Female 2:[address] LOCKSMITH Gender Identity Not on file Sexual Orientation Not on file 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 file documented as of this encounter Last Filed Vital Signs Vital Sign Reading Time Taken Comments Blood Pressure 124/86 05/28/2023 10:14 AM CDT Pulse 74 05/28/2023 10:14 AM CDT Temperature 36.8 ??C (98.2 ??F) 05/28/2023 10:14 AM C DT Respiratory Rate 16 05/28/2023 10:14 AM CDT Oxygen Saturation 98% 05/28/2023 10:14 AM CDT Inhaled Oxygen Concentration - - Weight 101.6 kg (224 lb) 05/28/2023 10:14 AM CDT Height 162.6 cm (5' 4 ) 05/28/2023 10:14 AM CDT Body Mass Index 38.45 05/28/2023 10:14 AM CDT documented in this encounter Progress Notes * Jaden Thakur DO - 05/28/2023 10:00 AM CDT Images from the original note were not included. GENERAL OFFICE VISIT Encounter Date: 05/28/2023 Chief Complaint: 42-year-old female presents for Neurologic Problem (Patient presents for a 2 month follow up ) History of Present Illness: Pt presents for 2 month follow-up. At last OV, we began stopping bethanechol and weaning tamsulosin, baclofen, and gabapentin. We didn't change pt's duloxetine or [place]. Pt has since been terminated from her position despite our last OV. Pt did not do well with stopping baclofen but was able to stop the other agents. Pt will see a new orthopedic next week for her hip. Pt needs a referral to a new neurologist. Pt will see cardiology later today. They are unsure if this is a new lard refiner or not. Pt is asking about weight loss medications. Pt is not able to exercise normally secondary to her CVA. Pt does note some right ear pain. There is no drainage. It just started this morning. No hearing change on that side. ROS: Review of Systems Constitutional: Negative for [...] tablet Take 1 tab by mouth daily. Cetirizine HCl 10 MG TABLET DISPERSIBLE Take 1 tablet (10 mg total) by mouth every evening. Cholecalciferol (VITAMIN D3) 50 MCG (2000 UT) Tab Take by mouth daily. cyclobenzaprine (FLEXERIL) 5 MG tablet Take 1 tablet (5 mg total) by mouth 3 (three) times daily. DULoxetine (CYMBALTA) 60 MG capsule Take 1 capsule (60 mg total) by mouth daily. HYDROcodone-acetaminophen (NORCO) 10-325 MG tablet Take [...] needed. Order for Electric Sit to Stand verapamil ER (VERELAN PM) 120 MG 24 [...] embolism of right middle cerebral artery (HHS/HCC) ([facility]) Past Medical History: Diagnosis Date Allergy Common femoral artery injury, right, subsequent encounter 12/29/2022 GERD (gastroesophageal reflux disease) Migraine 10/19/2022 Presence of externally removable percutaneous endoscopic gastrostomy (PEG) tube (HHS/HCC) ([facility])2022 Received intravenous tissue plasminogen activator (tPA) in [...] Types: Cigarettes Quit date: 03/12/2015 Years since quittin.2 Smokeless tobacco: Never Substance and Sexual Activity [...] Adam Martin (Not Specified) Objective: Filed Vitals: 05/28/23 1014 BP: 124/86 Pulse: 74 Resp: 16 Temp: 98.2 ??F (36.8 ??C) TempSrc: Skin SpO2: 98% Weight: 101.6 kg (224 lb) Height: 1.626 m (5' 4 ) Physical Exam Vitals and nursing note reviewed. Constitutional: Comments: Sitting in wheelchair comfortably, was standing today upon entering room HENT: Head: Comments: Cranial abnormality consistent with surgical history, continuing to improve Right Ear: Tympanic membrane, ear canal and external ear normal. Left Ear: External ear normal. Eyes: Conjunctiva/sclera: Conjunctivae normal. Cardiovascular: Rate and Rhythm: Normal rate and regular rhythm. Pulmonary: Effort: Pulmonary effort is normal. Neurological: Mental Status: She is alert. Comments: Full exam deferred today Assessment & Plan: Consuelo was seen today for neurologic problem. Diagnoses and all orders for this visit: Cerebrovascular accident (CVA) due to thrombosis of right middle cerebral artery (HHS/HCC) ([facility]/HCC) - tirzepatide (ZEPBOUND) 2.5 MG/0.5ML injection; Inject 2.5 mg into the skin once a week. Increase to 0.5 mg weekly after 1 month - Ambulatory referral to Neurology ([facility]) Chronic left hip pain - tirzepatide (ZEPBOUND) 2.5 MG/0.5ML injection; Inject 2.5 mg into the skin once a week. Increase to 0.5 mg weekly after 1 month Hypertension, unspecified type - tirzepatide (ZEPBOUND) 2.5 MG/0.5ML injection; Inject 2.5 mg into the skin once a week. Increase to 0.5 mg weekly after 1 month BMI 38.0-38.9,adult - tirzepatide (ZEPBOUND) 2.5 MG/0.5ML injection; Inject 2.5 mg into the skin once a week. Increase to 0.5 mg weekly after 1 month Discussion & Summary: Will start on Zepbound given pt's CVA which limits her ability to exercise and her inability to keep her weight down with diet alone as well as her other co- morbidities. Will refer to our neurologistdue to insurance change. Continue other medications as prescribed and f/u with all scheduled specialists. Can send out abx if ear pain continues. Will reach out to neurosurgery regarding Keppra dosing. Will have pt f/u in 2-3 months or sooner if needed. Pt v/u. I personally spent a total of 50 minutes on the day of the encounter. This includes durc-tj-tsts and nyh-fblu-sr-face time I provided on the day of the encounter & excludes time spent performing separately reportable services. Jaden Thakur DO documented in this encounter Plan of Treatment Scheduled Referrals Name Type Priority Associated Diagnoses Orde r Schedule Ambulatory referral to Neurology ([facility]) Referral Routine Cerebrovascular accident (CVA) due to thrombosis of right middle cerebral artery ([facility] HHS/HCC) Ordered: 05/28/2023 documented as of this encounter Visit Diagnoses Diagnosis Cerebrovascular accident (CVA) due to thrombosis of right middle cerebral artery ([facility] HHS/HCC)- Primary Chronic left hip pain Pain in joint, pelvic region and thigh Hypertension, unspecified type BMI 38.0-38.9,adult Body Mass Index 38.0-38.9, adult documented in this encounter Additional Health Concerns Assessment Noted Time PHQ-9 Depression Total Score: 0 04/30/19 21 9:[address] LOCKSMITH documented as of this encounter Care Teams Sports Physician Relationship Specialty Start Date End Date Jaden Thakur DO [address] [place] [address] PCP - General FAMILY PRACTICE 04/10/19 documented as of this encounter
--- OUTSIDE RECORDS SUMMARY | 2024-03-19 20:50 | XMS_ITS | Encounter Summary ---
Author Organization [facility] Address [address] [place] [address]. 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
--- OUTSIDE RECORDS SUMMARY | 2024-03-19 20:50 | XMS_ITS | Encounter Summary ---
Author Organization [facility] Address [address] [place] [address]. [address] [address] Care Team Providers Care Program Therapist Name Role Phone Romy Pena DO Primary Care Provider + Reason for Visit * Reason Onset Date Comments Information 12/25/2022 Encounter Details Date Type Department Care Team (Late st Contact Info) Description 12/25/2022 Telephone [facility] Family & Internal Medicine [facility] [address] [place] [address] Romy Pena DO [address] [place] [address] Information Social History Tobacco Use [...] on file Legal Sex Female 2:33 PM POTTERY DECORATOR Gender Identity Not on file Sexual Orientation Not on file 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 Opportunity given for all questions to be answered, no further needs voiced at this time. LL-01/04/23 * Romy Pena DO - 01/04/2023 3:07 PM CDTAddended by: ROMY PENA on: 01/04/2023 03:07 PM Modules accepted: Orders * Romy Pena DO - 01/04/2023 2:53 PM CDTAddended by: ROMY PENA on: 01/04/2023 02:53 PM Modules accepted: Orders * Romy Pena DO - 01/04/2023 2:28 PM CDT Pended Lovenox. See bridging instructions in task. * Dionisio Becker RN - 01/03/2023 10:30 AM CDT Nurse called back stating that the patient will be restarted on heparin/ Lovenox postop. Then the patient should be restarted on coumadin 3 days postoperatively. Opportunity given for all questions to be answered, no further needs voiced at this time. -01/03/23 * Dionisio Becker RN - 01/02/2023 3:01 PM CDT Attempted to call the patient's neuro nurse at [phone]. Was unable to reach them at this time.Left a message requesting a call back. LL-01/02/23 * Romy Pena DO - 12/28/2022 10:43 PM CDT We can manage this; please clarify with neurosurgery at how many hours postoperatively can we restart anticoagulation. * Dionisio Becker RN - 12/27/2022 10:06 AM CDT Called and spoke with patient's . She is scheduled to have a Craniotomy on January 10. Opportunity given for all questions to be answered, no further needs voiced at this time. Please advise -12/27/22 * Romy Pena DO - 12/27/2022 7:59 AM CDT Per telephone message from Lynette Jacques from neurosurgery on 12/25/22: Left PCP office a message that Cardiology suggest patient be bridged with Lovenox while holding coumadin for 5 days and hold Lovenox 24 hours prior to surgery. Please clarify when surgery is. We can do this, but we need to know when to start. * Tia Jacobo MA - 12/26/2022 3:31 PM CDT Lynette Martin office is requesting PCP bridge lovenox for 5 days and hold for 24 hours prior to surgery . Patient is using [facility] [place]. * Tia Jacobo MA - 12/26/2022 3:22 PM CDT Patient states that PCP was supposed to order lovenox and she said the pharmacy told her coumadin rx has been cancelled ,Lmtc for Lynette with [facility] 12/26/22 * Sangita Allison - 12/25/2022 11:39 AM CDT [facility] will like to inform the patient doctor of information regarding patient please call her back @ [phone] documented in this encounter Plan of Treatment Not on file documented as of this encounter Visit Diagnoses Diagnosis Acute cerebrovascular accident (CVA) due to embolism of right middle cerebral artery ([facility]/HCC [facility])- Primary Current use of long wall mining machine tender anticoagulation Encounter for long-term (current) use of anticoagulants documented in this encounter Additional Health Concerns Assessment Noted Time PHQ-9 Depression Total Score: 0 04/30/19 21 9:32 AM POTTERY DECORATOR documented as of this encounter Care Teams Program Therapist Relationship Specialty Start Date End Date Romy Pena DO [address] [place] [phone] PCP - General FAMILY PRACTICE 04/10/19 documented as of this encounter
--- OUTSIDE RECORDS SUMMARY | 2024-03-19 20:50 | XMS_ITS | Encounter Summary ---
Author Organization [facility] Address [address] [place] [address]. [place], [place] [phone] [place] [address] Care Team Providers Care String Studies Director Name Role Phone Jaden Thakur DO Primary Care Provider + Encounter Details Date Type Department Care Team (Latest Contact Info) Description 02/14/2023 Scan HEALTH INFO SRVCS Scanned, Doc Med [...] on file Legal Sex Female 2:33 PM ESTABLISHMENT GUIDE Gender Identity Not on file Sexual Orientation [...] Total Score: 0 04/30/19 21 9:32 AM ESTABLISHMENT GUIDE documented as of this encounter Care Teams String Studies Director Relationship Specialty Start Date End Date Jaden Thakur DO [address] [place] [address] PCP - General FAMILY PRACTICE 04/10/19 documented as of this encounter
--- OUTSIDE RECORDS SUMMARY | 2024-03-19 20:50 | XMS_ITS | Encounter Summary ---
Author Organization [facility] Address [address] [place] [address]. [place], [place] [address] [place] [address] Care Team Providers Care Road Grader Name Role Phone Jaden Thakur DO Primary Care Provider + Encounter Details Date Type Department Care Team (Latest Contact Info) Description 04/02/2023 Scan HEALTH INFO SRVCS Scanned, Doc Med [...] on file Legal Sex Female 2:33 PM CASHIER RECEPTIONIST Gender Identity Not on file Sexual Orientation [...] Total Score: 0 04/30/19 21 9:32 AM CASHIER RECEPTIONIST documented as of this encounter Care Teams Road Grader Relationship Specialty Start Date End Date Jaden Thakur DO [address] [place] [address] PCP - General FAMILY PRACTICE 04/10/19 documented as of this encounter
--- OUTSIDE RECORDS SUMMARY | 2024-03-19 20:50 | XMS_ITS | Encounter Summary ---
Author Organization [facility] Address [address] [place] [address]. [place], [place] [id number] [place] [address] Care Team Providers Care Pantograph I Engraver Name Role Phone Romy Pena DO Primary Care Provider + Reason for Referral * Imaging (Routine) - Closed Specialty Diagnoses / Procedures Referred By Contac t Referred To Contact RADIOLOGY Diagnoses Chronic left hip pain Pain of left hip Procedures MRI HIP LT WO CON Romy Pena DO [address] [place] [address] Phone: tel: fax: Referral ID Status Reason Start Date Expiration Date Visits Re quested Visits Authorized [id number] Closed 03/07/2023 04/05/2024 1 1 T BINDING AND FINISHING WORKER Reason for Visit * Reason Onset Date Comments Orders 03/07/2023 Encounter Details Date Type Department Care Team (Late st Contact Info) Description 03/07/2023 Telephone [facility] Family & Internal Medicine [facility] [address] [place] [address] Romy Pena DO [address] [place] [address] Orders Social History Tobacco Use [...] on file Legal Sex Female 2:33 PM PRINT BINDING AND FINISHING WORKER Gender Identity Not on file Sexual Orientation Not on file 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 Patient notified and v/u T BINDING AND FINISHING WORKER * ACE Anderson - 03/07/2023 10:45 AM CST Patient is wanting to get MRI order switched over to where she can have it done at an [facility] facilitydue to not being able to get in until Apr 2023 at [facility] T BINDING AND FINISHING WORKER documented in this encounter Plan of Treatment Not on file documented as of this encounter Results * MRI HIP LT WO CON (04/04/2023 3:04 PM PRINT BINDING AND FINISHING WORKER) Anatomical Region Laterality Modality Hip Magnetic Resonan ce 04/05/2023 1:58 PM PRINT BINDING AND FINISHING WORKER Impressions 04/05/2023 2:01 PM PRINT BINDING AND FINISHING WORKER IMPRESSION: 1. ??IRREGULAR APPEARANCE SUGGESTING SUBTLE CHRONIC SUPERIOR LATERAL LEFT LABRAL TEAR. ??NO OTHER SIGNIFICANT ABNORMALITY. Signed: Maurilio Evans MD Referred By: ROMY PENA Interpreted By: Maurilio Evans MD, 04/05/2023 1:58 PM Narrative 04/05/2023 2:01 PM PRINT BINDING AND FINISHING WORKER PATIENT NAME: TRICE LONDON EXAM: MRI left hip without contrast DATE OF EXAM: 04/04/2023 COMPARISON EXAM: None INDICATION: Left hip pain, history of stroke TECHNIQUE: Coronal T1 and STIR images of the pelvis and hips obtained. ??Axial coronal T1-weighted images left hip along with axial, coronal and sagittal fat suppressed proton density images left hip. FINDINGS: Images through the pelvis demonstrate no evidence of pelvic mass or adenopathy. ??No acute inflammatory change, abscess or ascites. ??SI joints and pubic symphysis are unremarkable. ??No marrow replacing lesions are noted in the pelvic bones. Images of the left hip are somewhat limited due to relatively poor pisrck-bj-nihcm ratio. ??There is a small nonspecific left hip joint effusion. ??Marrow signal in the left acetabulum and left femoral head is normal. ??No evidence of femoral head AVN. ??No marrow replacing mass lesions are seen. There is subtle irregularity of the superolateral labrum suspicious for chronic labral tear. ??No para labral cyst. ??The transverse ligament, iliofemoral ligament and ligamentum teres are unremarkable. ??The insertion sites of distal gluteus minimus and gluteus medius tendons on the greater trochanter are unremarkable. ??No significant fluid in the region of the trochanteric bursa. ??Normal appearance of the hamstring origins bilaterally. Procedure Note Maurilio Evans MD - 04/05/2023 PATIENT NAME: TRICE LONDON EXAM: MRI left hip without contrast DATE OF EXAM: 04/04/2023 COMPARISON EXAM: None INDICATION: Left hip pain, history of stroke TECHNIQUE: Coronal T1 and STIR images of the pelvis and hips obtained.Axial coronal T1-weighted images left hip along with axial, coronal andsagittal fat suppressed proton density images left hip. FINDINGS: Images through the pelvis demonstrate no evidence of pelvic massor adenopathy. No acute inflammatory change, abscess or ascites. SIjoints and pubic symphysis are unremarkable. No marrow replacing lesionsare noted in the pelvic bones. Images of the left hip are somewhat limited due to relatively zwffsjacbo-im-ibpcd ratio. There is a small nonspecific left hip jointeffusion. Marrow signal in the left acetabulum and left femoral head isnormal. No evidence of femoral head AVN. No marrow replacing masslesions are seen. There is subtle irregularity of the superolateral labrum suspicious forchronic labral tear. No para labral cyst. The transverse ligament,iliofemoral ligament and ligamentum teres are unremarkable. The insertionsites of distal gluteus minimus and gluteus medius tendons on the greatertrochanter are unremarkable. No significant fluid in the region of thetrochanteric bursa. Normal appearance of the hamstring originsbilaterally. IMPRESSION: 1. IRREGULAR APPEARANCE SUGGESTING SUBTLE CHRONIC SUPERIOR LATERAL LEFTLABRAL TEAR. NO OTHER SIGNIFICANT ABNORMALITY. Signed: Maurilio Evans MD Referred By: ROMY PENA Interpreted By: Maurilio Evans MD, 04/05/2023 1:58 PM Romy Pena DO MRI Final Re sult documented in this encounter Visit Diagnoses Diagnosis Chronic left hip pain- Primary Pain in joint, pelvic region and thigh Pain of left hip Chronic left hip pain Pain in joint, pelvic region and thigh Pain of left hip documented in this encounter Additional Health Concerns Assessment Noted Time PHQ-9 Depression Total Score: 0 04/30/19 21 9:32 AM PRINT BINDING AND FINISHING WORKER documented as of this encounter Care Teams Pantograph I Engraver Relationship Specialty Start Date End Date Romy Pena DO [address] [place] [address] PCP - General FAMILY PRACTICE 04/10/19 documented as of this encounter
--- OUTSIDE RECORDS SUMMARY | 2024-03-19 20:50 | XMS_ITS | Encounter Summary ---
Author Organization [facility] Address [address] [place] [address]. 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 The order goes through our referral dept to get auth from the insurance company. You can contact them at [phone] to discuss status. Alsostated if she has other questions to return call. Per previous encounter patient was sent the message above in a [employer] message as well. NING DESIGNER * Leonor Roper - 02/12/2023 10:51 AM CST Pt is needing order for MRI of hip sent to [facility]. NING DESIGNER documented in this encounter Plan of Treatment Not on file documented as of this encounter Visit Diagnoses Not on filedocumented in this encounter Additional Health Concerns Assessment Noted Time PHQ-9 Depression Total Score: 0 04/30/19 21 9:32 AM LEARNING DESIGNER documented as of this encounter Care Teams Practical Nurse Relationship Specialty Start Date End Date Jaden Thakur DO [address] [place] [address] PCP - General FAMILY PRACTICE 04/10/19 documented as of this encounter
--- OUTSIDE RECORDS SUMMARY | 2024-03-19 20:50 | XMS_ITS | Encounter Summary ---
Author Organization [facility] Address [address] [place] [address]. 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 Opportunity given for all questions to be answered, no further needs voiced at this time. LL-12/25/22 * Dionisio Jordan RN - 12/25/2022 4:26 PM CDT ----- Message from Jaden Thakur DO sent at 12/25/2022 4:02 PM CDT ----- Pt's PT/INR is still low; increase warfarin to 6 mg daily and recheck on . documented in this encounter Plan of Treatment Not on file documented as of this encounter Visit Diagnoses Diagnosis Current use of longwall shearer operator anticoagulation- Primary Encounter for long-term (current) use of anticoagulants documented in this encounter Additional Health Concerns Assessment Noted Time PHQ-9 Depression Total Score: 0 04/30/19 21 9:32 AM CITY DISTRIBUTION CLERK documented as of this encounter Care Teams Beauty Operator Apprentice Relationship Specialty Start Date End Date Jaden Thakur DO [address] [place] [address] PCP - General FAMILY PRACTICE 04/10/19 documented as of this encounter
--- OUTSIDE RECORDS SUMMARY | 2024-03-19 20:50 | XMS_ITS | Encounter Summary ---
Author Organization [facility] Address [address] [place] [address]. [place], [place] [address] [place] [address] Care Team Providers Care Firefighter Name Role Phone Jaden Thakur DO Primary Care Provider + Encounter Details Date Type Department Care Team (Latest Contact Info) Description 01/01/2023 Travel Social History Tobacco Use Types Packs/Day [...] Legal Sex Female 2:33 PM DIRECTOR OF INSTITUTIONAL GIVING Gender Identity Not on file Sexual Orientation [...] 0 04/30/19 21 9:32 AM DIRECTOR OF INSTITUTIONAL GIVING documented as of this encounter Care Teams Firefighter Relationship Specialty Start Date End Date Jaden Thakur DO [address] [place] [address] PCP - General FAMILY PRACTICE 04/10/19 documented as of this encounter
--- OUTSIDE RECORDS SUMMARY | 2024-03-19 20:50 | XMS_ITS | Encounter Summary ---
Author Organization [facility] Address [address] [place] [address]. 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 * Peyton Bañuelos MA - 10/26/2021 11:18 AM CDT Patient unable to come back for the reading. Order given for lab test. tn * Jaden Thakur DO - 10/11/2021 4:09 PM CDT We can only do skin test here, which I'm okay with if that is sufficient for pt's school. If not, we could order it and pt could go to [facility] to do that. documented in this encounter Plan of Treatment Not on file documented as of this encounter Procedures Procedure Name Priority Date/Time Associated Diagnosis Comments QUANTIFERON-TB GOLD PLUS, 4T Routine 10/26/2021 11:37 AM CDT Screening for tuberculosis documented in this encounter Results * QUANTIFERON-TB GOLD PLUS, 4T ([facility] ONLY) (10/26/2021 11:37 AM CDT) TB QUANTIFERON(R)-I NCUBATED Incubation performed. [facility] 1 TB QUANTIFERON Negative Negative [facility] 1 Comment: No response to M tuberculosis antigens detected. Infection with M tuberculosis is unlikely, but high risk individuals should be considered for additional testing (ATS/IDSA/CDC Clinical Practice Guidelines, 2017). The reference range is an Antigen minus Nil result of <0.35 IU/mL. Chemiluminescence immunoassay methodology COMMENT Comment [facility] 1 Comment: QuantiFERON-TB Gold Plus is a qualitative indirect test for M tuberculosis infection (including disease) and is intended for use in conjunction with risk assessment, radiography, and other medical and diagnostic evaluations. The QuantiFERON-TB Gold Plus result is determined by subtracting the Nil value from either TB antigen (Ag) value. The Mitogen tube serves as a control for the test. TB1 AG MINUS NIL 0.00 IU/mL [facility] 1 TB2 AG MINUS NIL 0.01 IU/mL [facility] 1 TB ANTIGEN - NIL VALUE 0.02 IU/mL [facility] 1 MITOGEN NIL >10.00 IU/mL [facility] 1 10/26/2021 11:3 7 AM CDT 10/26/2021 Narrative [facility] - 10/29/2021 2:10 PM CDT Performed at: ??01 - [facility] [address] ??[id number] Sld Teacher: Pal Anderson PhD, Phone: ??[phone] us Jaden Thakur DO LABORATORY Final Re sult [facility] [address] [place] [address] [facility] 1 documented in this encounter Visit Diagnoses Diagnosis Screening for tuberculosis- Primary Screening examination for pulmonary tuberculosis documented in this encounter Additional Health Concerns Assessment Noted Time PHQ-9 Depression Total Score: 0 04/30/19 21 9:32 AM HEATING ENGINEER documented as of this encounter Care Teams Linux Vmware Administrator Relationship Specialty Start Date End Date Jaden Thakur DO [address] [place] [address] PCP - General FAMILY PRACTICE 04/10/19 documented as of this encounter
--- OUTSIDE RECORDS SUMMARY | 2024-03-19 20:50 | XMS_ITS | Encounter Summary ---
Author Organization [facility] Address [address] [place] [address]. [place], [place] [address] [place] [address] Care Team Providers Care Chief Cruiser Name Role Phone Jaden Thakur DO Primary Care Provider + Reason for Visit * Reason Comments Hospital Follow Up The patient presents for hospital follow up. The patient had partial craniotomy at [facility] Encounter Details Date Type Department Care Team (Late st Contact Info) Description 01/25/2023 10:40 AM MANNEQUIN MOLDER Office Visit [facility] Group Family & Internal Medicine [place] [address] [place] [address] Jaden Thakur DO [address] [place] [address] Hospital Follow Up (The patient presents for hospital follow up. 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 file documented as of this encounter Last Filed Vital Signs Vital Sign Reading Time Taken Comments Blood Pressure 94/58 01/25/2023 10:46 AM MANNEQUIN MOLDER Pulse 78 01/25/2023 10:46 AM MANNEQUIN MOLDER Temperature 36.4 ??C (97.5 ??F) 01/25/2023 10:[address] Respiratory Rate 16 01/25/2023 10:46 AM MANNEQUIN MOLDER Oxygen Saturation 98% 01/25/2023 10:46 AM MANNEQUIN MOLDER Inhaled Oxygen Concentration - - Weight 86.6 kg (191 lb) 01/25/2023 10:46 AM MANNEQUIN MOLDER Height 162.6 cm (5' 4 ) 01/25/2023 10:46 AM MANNEQUIN MOLDER Body Mass Index 32.79 01/25/2023 10:46 AM MANNEQUIN MOLDER documented in this encounter Progress Notes * Jaden Thakur, - 01/25/2023 10:40 AM CST Images from the original note were not included. GENERAL OFFICE VISIT Encounter Date: 01/25/2023 Chief Complaint: 42-year-old female presents for Hospital Follow Up (The patient presents for hospital follow up. 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 Tolerated the procedure well and was monitored on the floor post operatively for one day. She was discharged to home on PoD 1 in stablecondition. Since Discharge: Consuelo has been doing adequate. She has not started her naproxen due to being told there was an interaction with Gerry by her pharmacy. She is also noting more anxiety symptoms. Ptalso needs paperwork completed today for transportation purposes. No other acute symptoms. ROS: Review of Systems Constitutional: Negative for fever. Respiratory: Negative for shortness of breath. Musculoskeletal: Will see orthopedics about hip pain Neurological: See HPI Medications: Current Outpatient Medications: AFO BRACE, DME,, Apply 1 Device topically daily., Disp: 1 Device, Rfl: 0 baclofen (LIORESAL) 5 MG tablet, Take 1 tablet (5 mg total) by mouth daily., Disp: 90 tablet, Rfl: 0 bethanechol (URECHOLINE) 25 MG tablet, Take 1 tablet (25 mg total) by mouth 3 (three) times daily.,Disp: 120 tablet, Rfl: 0 Cetirizine HCl 10 MG TABLET DISPERSIBLE, Take 1 tablet (10 mg total) by mouth daily., Disp: , Rfl: Cholecalciferol (VITAMIN D3) 50 MCG (2000 UT) Tab, Take by mouth daily., Disp: , Rfl: cyclobenzaprine (FLEXERIL) 5 MG tablet, Take 1 tablet (5 mg total) by mouth 3 (three) times daily.,Disp: 90 tablet, Rfl: 0 DULoxetine (CYMBALTA) 30 MG capsule, Take 1 capsule (30 mg total) by mouth daily., Disp: 30 capsule, Rfl: 2 gabapentin (NEURONTIN) 300 MG capsule, Take 1 capsule (300 mg total) by mouth 3 (three) times daily., Disp: 90 capsule, Rfl: 0 HYDROcodone-acetaminophen (NORCO) 5-325 MG tablet, Take 1-2 tablets by mouth every 6 (six) hours asneeded for Pain. Indications: Acute Pain < 7 Day Supply, Disp: 56 tablet, Rfl: 0 hydrOXYzine (ATARAX) 25 MG tablet, Take 1 tablet (25 mg total) by mouth every 6 (six) hours as needed., Disp: , Rfl: levETIRAcetam (KEPPRA) 500 MG tablet, Take 1 tablet (500 mg total) by mouth 2 (two) times daily., Disp: , Rfl: metoprolol tartrate (LOPRESSOR) 25 MG tablet, Take 1 tablet (25 mg total) by mouth 2 (two) times daily., Disp: 180 tablet, Rfl: 0 naproxen (NAPROSYN) 375 MG tablet, Take 1 tablet (375 mg total) by mouth 2 (two) times daily with meals., Disp: 60 tablet, Rfl: 1 oxyCODONE immediate release (ROXICODONE) 5 MG immediate release tablet, Take 1 tablet (5 mg total) by mouth nightly as needed. Indications: Chronic Pain, Disp: , Rfl: pantoprazole EC (PROTONIX) 40 MG tablet, Take [...] at bedtime., Disp: 30 capsule, Rfl: 2 acetaminophen (TYLENOL) 500 MG tablet, 1 tablet (500 mg total) by Tube route every 6 (six) hours asneeded. (Patient not taking: Reported on 01/25/2023), Disp: , Rfl: Current Outpatient Medications on File Prior to [...] mouth 2 (two) times daily with meals. oxyCODONE immediate release (ROXICODONE) 5 MG immediate release tablet Take 1 tablet (5 mg total) by mouth nightly as needed. Indications: Chronic Pain pantoprazole EC (PROTONIX) 40 MG tablet Take [...] mg total) by mouth nightly at bedtime. acetaminophen (TYLENOL) 500 MG tablet 1 tablet (500 mg total) by Tube route every 6 (six) hours as needed. (Patient not taking: Reported on 01/25/2023) No current facility-administered medications on file prior [...] embolism of right middle cerebral artery (HHS/HCC) ([facility]) Past Medical History: Diagnosis Date Allergy Common femoral artery injury, right, subsequent encounter 12/29/2022 GERD (gastroesophageal reflux disease) Migraine 10/19/2022 Presence of externally removable percutaneous endoscopic gastrostomy (PEG) tube (HHS/HCC) ([facility])2022 Received intravenous tissue plasminogen activator (tPA) in [...] Types: Cigarettes Quit date: 03/12/2015 Years since quittin.8 Smokeless tobacco: Never Substance and Sexual Activity [...] Adam Martin (Not Specified) Objective: Filed Vitals: 01/25/23 1046 BP: 94/58 Pulse: 78 Resp: 16 Temp: 97.5 ??F (36.4 ??C) TempSrc: Skin SpO2: 98% Weight: 86.6 kg (191 lb) Height: 1.626 m (5' 4 ) [...] Normal breath sounds. No wheezing or rales. Skin: Comments: Surgical site on right temporal region shows no infection Neurological: Mental Status: She is alert. Comments: Right side is WNL; essentially no movement at this time on the LUE or LLE, similar to previous Assessment & Plan: Consuelo was seen today for hospital follow up. Diagnoses and all orders for this visit: Acquired skull defect Anxiety - DULoxetine (CYMBALTA) 30 MG capsule; Take 1 capsule (30 mg total) by mouth daily. Cerebrovascular accident (CVA) due to thrombosis of right middle cerebral artery (HHS/HCC) (CMS/HCC) Acute hip pain, left Discussion & Summary: 1. Medications/DME - Continue current medications. See orders. Consider increasing gabapentin depending upon orthopedic recommendations. 2. Lab/Diagnostics - None. 3. Education - Current treatment discussed and patient education given as appropriate. 4. Referrals - None needed. 5. RTC - 1 month(s) I personally spent a total of 45 minutes on the day of the encounter. This includes kpsq-br-elxb and rep-soka-zo-face time I provided on the day of the encounter & excludes time spent performing separately reportable services. Jaden Thakur DO EQUIN MOLDER documented in this encounter Plan of Treatment Not on file documented as of this encounter Visit Diagnoses Diagnosis Acquired skull defect- Primary Other specified acquired deformity of head Anxiety Anxiety state, unspecified Cerebrovascular accident (CVA) due to thrombosis of right middle cerebral artery ([facility]CC HHS/HCC) Acute hip pain, left documented in this encounter Additional Health Concerns Assessment Noted Time PHQ-9 Depression Total Score: 0 04/30/19 21 9:32 AM MANNEQUIN MOLDER documented as of this encounter Care Teams Chief Cruiser Relationship Specialty Start Date End Date Jaden Thakur DO [address] [place] [address] PCP - General FAMILY PRACTICE 04/10/19 documented as of this encounter
--- OUTSIDE RECORDS SUMMARY | 2024-03-19 20:50 | XMS_ITS | Encounter Summary ---
Author Organization [facility] Address [address] [place] [address]. 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 documented in this encounter Plan of Treatment Not on file documented as of this encounter Visit Diagnoses Diagnosis Migraine without aura and without status migrainosus, not intractable Migraine without aura, without mention of intractable migraine without mention of status migrainosus documented in this encounter Additional Health Concerns Assessment Noted Time PHQ-9 Depression Total Score: 0 04/30/19 21 9:32 AM SENIOR LITIGATION PARALEGAL documented as of this encounter Care Teams Primary Counselor Relationship Specialty Start Date End Date Jaden Thakur DO [address] [place] [id number] PCP - General FAMILY PRACTICE 04/10/19 documented as of this encounter
--- OUTSIDE RECORDS SUMMARY | 2024-03-19 20:50 | XMS_ITS | Encounter Summary ---
Author Organization [facility] Address [address] [place] [address]. 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 Gender Identity Not on file Sexual Orientation Not on file 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 file documented as of this encounter Plan of Treatment Not on file documented as of this encounter Procedures Procedure Name Priority Date/Time Associated Diagnosis Comments COLLECT.CAPILLARY (FNGR,HEEL,EAR) Routine 12/25/2022 2:20 PM CDT Current use of exterminator termite anticoagulation PROTHROMBIN TIME, FINGERSTICK Routine 12/25/2022 Current use of exterminator termite anticoagulation documented in this encounter Results * PROTIME/INR, FINGERSTICK (12/25/2022) INR WHOLE BLOOD 1.60 MG[facility] 12/25/2022 us Jaden Thakur DO LABORATORY Final Re sult [address] [address], documented in this encounter Visit Diagnoses Diagnosis Current use of [facility] anticoagulation- Primary Encounter for long-term (current) use of anticoagulants documented in this encounter Additional Health Concerns Assessment Noted Time PHQ-9 Depression Total Score: 0 04/30/19 21 9:32 AM INVERFORM MACHINE OPERATOR documented as of this encounter Care Teams Chemical Technician Relationship Specialty Start Date End Date Jaden Thakur DO [address] [place] [address] PCP - General FAMILY PRACTICE 04/10/19 documented as of this encounter
--- OUTSIDE RECORDS SUMMARY | 2024-03-19 20:50 | XMS_ITS | Encounter Summary ---
Author Organization [facility] Address [address] [place] [address]. [address] [address] Care Team Providers Care Upholstery Cutter Name Role Phone Jaden Thakur DO Primary Care Provider + Reason for Visit * Reason Comments Allied Health Visit INR Encounter Details Date Type Department Care Team (Latest Contact Info) Description 01/04/2023 2:20 PM CDT Allied Health/Nurse Visit [facility] Medical Group Family & Internal Medicine [address] [place] [address] Jaden Thakur DO [facility] [place], [place] [id number] Allied Health Visit (INR) Social History Tobacco Use Types Packs/Day Years [...] on file Legal Sex Female 2:33 PM GYM MANAGER Gender Identity Not on file Sexual [...] - Inhaled Oxygen Concentration - - Weight 86.7 kg (191 lb 3.2 oz) 01/04/2023 2:32 P M CDT Height - - Body Mass Index 32.82 12/22/2022 2:16 PM CDT documented in this encounter Progress Notes * Laura Becker RN - 01/04/2023 2:20 PM CDT Patient in for a PT finger stick. Patient tolerated well. She is also aware of her results. Opportunity given for all questions to be answered, no further needs voiced at this time. LL-01/04/23 documented in this encounter Plan of Treatment Not on file documented as of this encounter Procedures Procedure Name Priority Date/Time Associated Diagnosis Comments COLLECT.CAPILLARY (FNGR,HEEL,EAR) Routine 01/04/2023 2:38 PM CDT Current use of residential anticoagulation PROTHROMBIN TIME, FINGERSTICK Routine 01/04/2023 Current use of bunk assembler anticoagulation documented in this encounter Results * PROTIME/INR, FINGERSTICK (01/04/2023) INR 3.2 -[facility] 01/04/2023 us Jaden Thakur DO LABORATORY Edited R esult - Final -[facility] [address] [place] [address], documented in this encounter Visit Diagnoses Diagnosis Current use of bunk assembler anticoagulation- Primary Encounter for long-term (current) use of anticoagulants documented in this encounter Additional Health Concerns Assessment Noted Time PHQ-9 Depression Total Score: 0 04/30/19 21 9:32 AM GYM MANAGER documented as of this encounter Care Teams Upholstery Cutter Relationship Specialty Start Date End Date Jaden Thakur DO [facility] [place] [id number] PCP - General FAMILY PRACTICE 04/10/19 documented as of this encounter
--- OUTSIDE RECORDS SUMMARY | 2024-03-19 20:50 | XMS_ITS | Encounter Summary ---
Author Organization [facility] Address [address] [place] [address]. [place], [place] [address] [place] [address] Care Team Providers Care School Vocational Educator Name Role Phone Jaden Thakur DO Primary Care Provider + Encounter Details Date Type Department Care Team (Latest Contact Info) Description 05/28/2023 Travel Social History Tobacco Use Types Packs/Day [...] on file Legal Sex Female 2:33 PM SANDBLAST CARVER Gender Identity Not on file Sexual Orientation [...] Total Score: 0 04/30/19 21 9:32 AM SANDBLAST CARVER documented as of this encounter Care Teams School Vocational Educator Relationship Specialty Start Date End Date Jaden Thakur DO [address] [place] [id number] PCP - General FAMILY PRACTICE 04/10/19 documented as of this encounter
--- OUTSIDE RECORDS SUMMARY | 2024-03-19 20:50 | XMS_ITS | Encounter Summary ---
Author Organization [facility] Address [address] [place] [address]. [place] [address] Care Team Providers Care Extruding Press Operator Name Role Phone Romy Pena DO Primary Care Provider + Reason for Referral * Imaging (Routine) - Closed Specialty Diagnoses / Procedures Referred By Jimena muller Referred To Contact RADIOLOGY Diagnoses Chronic left hip pain Pain of left hip Procedures MRI HIP LT WO CON Romy Pena DO [address] [place] [id number] Phone: tel: fax: Referral ID Status Reason Start Date Expiration Date Visits Re quested Visits Authorized [id number] Closed 03/07/2023 04/05/2024 1 1 PRESIDENT OF OPERATIONS Reason for Visit * Imaging (Routine) - Closed Specialty Diagnoses / Procedures Referred By Jimena muller Referred To Contact RADIOLOGY Diagnoses Chronic left hip pain Pain of left hip Procedures MRI HIP LT WO CON Romy Pena DO [address] [place] [address] Phone: tel: fax: Referral ID Status Reason Start Date Expiration Date Visits Re quested Visits Authorized [id number] Closed 03/07/2023 04/05/2024 1 1 Encounter Details Date Type Department Care Team (Latest Contact Info) Description 04/04/2023 1:47 PM VICE PRESIDENT OF OPERATIONS - 04/04/2023 11:59 PM VICE PRESIDENT OF OPERATIONS Hospital Encounter [facility] [place] [address] [place] [address] TruRomy romero, DO [address] [place] [address] Discharge Disposition: Home or Self Care (Routine Discharge) Social History Tobacco Use Types Packs/Day Years [...] on file Legal Sex Female 2:33 PM VICE PRESIDENT OF OPERATIONS Gender Identity Not on file Sexual Orientation Not on file 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 1 Device 12/28/2022 Cetirizine HCl 10 MG TABLET DISPERSIBLE Take 1 tablet (10 mg total) by mouth every evening. Cholecalciferol (VITAMIN D3) 50 MCG (1999 UT) Tab Take by mouth daily. hydrOXYzine (ATARAX) 25 MG tabletIndications :Anxiety Take 1 tablet (25 mg total) by mouth every 8 (eight) hours as needed. 90 tablet 2 03/21/2023 naloxone (NARCAN) 4 MG/0.1ML nasal sprayIndications: Opioid use 1 spray by Nasal route as needed for Opioid reversal. may repeat every 2 to 3 minutes in alternating nostrils until medical assistance becomes available 1 each 03/21/2023 5 polyethylene glycol (GLYCOLAX) packet 240 mLs (17 g total). 12/14/2022 aspirin 81 MG chewable tablet Chew by mouth daily. 4 baclofen (LIORESAL) 5 MG tabletIndications :Acquired skull defect Take 0.5 tabs daily for 2 weeks and then stop 90 tablet 03/21/2023 4 cyclobenzaprine (FLEXERIL) 5 MG tabletIndications :Cerebrovascular accident (CVA) due to thrombosis of right middle cerebral artery (CMS/HCC HHS/HCC),Subluxat ion of left shoulder joint, subsequent encounter Take 1 tablet (5 mg total) by mouth 3 (three) times daily. 90 tablet 2 02/15/2023 4 DULoxetine (CYMBALTA) 60 MG capsuleIndication s:Acute low back pain without sciatica, unspecified back pain laterality Take 1 capsule (60 mg total) by mouth daily. 90 capsule 1 02/15/2023 4 gabapentin (NEURONTIN) 300 MG capsuleIndication s:Cerebrovascular accident (CVA) due to thrombosis of right middle cerebral artery (CMS/HCC HHS/HCC),Subluxat ion of left shoulder joint, subsequent encounter Take 1 capsule twice daily for 2 weeks, then take 1 capsule daily for 2 weeks, then stop medication 270 capsule 1 03/21/2023 4 HYDROcodone-aceta minophen (NORCO) 10-325 MG tabletIndications :Chronic Pain Take 0.5-1 tablets by mouth every 6 (six) hours as needed for Pain. Indications: Chronic Pain 120 tablet 03/21/2023 4 levETIRAcetam (KEPPRA) 500 MG tablet Take 1 tablet (500 mg total) by mouth 2 (two) times daily. 01/11/2023 4 metoprolol tartrate (LOPRESSOR) 25 MG tabletIndications :Hypertension, unspecified type Take 1 tablet (25 mg total) by mouth 2 (two) times daily. 180 tablet 1 03/21/2023 4 pantoprazole EC (PROTONIX) 40 MG tabletIndications :Gastroesophageal reflux disease, unspecified whether esophagitis present Take 1 tablet (40 mg total) by mouth daily. 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 Order for Electric Sit to Stand 1 Device 12/27/2022 4 verapamil ER (VERELAN PM) 120 MG 24 hr capsuleIndication s:Migraine without aura and without status migrainosus, not intractable Take 1 capsule (120 mg total) by mouth nightly at bedtime. 90 capsule 1 03/21/2023 4 documented as of this encounter Plan of Treatment Not on file documented as of this encounter Procedures Procedure Name Priority Date/Time Associated Diagnosis Comments MRI HIP LT WO CON Routine 04/04/2023 3:0 4 PM VICE PRESIDENT OF OPERATIONS Chronic left hip pain Pain of left hip documented in this encounter Results * MRI HIP LT WO CON (04/04/2023 3:04 PM VICE PRESIDENT OF OPERATIONS) Anatomical Region Laterality Modality Hip Magnetic Resonan ce 04/05/2023 1:58 PM VICE PRESIDENT OF OPERATIONS Impressions 04/05/2023 2:01 PM VICE PRESIDENT OF OPERATIONS IMPRESSION: 1. ??IRREGULAR APPEARANCE SUGGESTING SUBTLE CHRONIC SUPERIOR LATERAL LEFT LABRAL TEAR. ??NO OTHER SIGNIFICANT ABNORMALITY. Signed: Maurilio Evans MD Referred By: ROMY PENA Interpreted By: Maurilio Evans MD, 04/05/2023 1:58 PM Narrative 04/05/2023 2:01 PM VICE PRESIDENT OF OPERATIONS PATIENT NAME: TRICE LONDON EXAM: MRI left [...] are somewhat limited due to relatively poor [id number] ratio. ??There is a small nonspecific left [...] hip are somewhat limited due to relatively [id number] ratio. There is a small nonspecific left [...] By: Maurilio Evans MD, 04/05/2023 1:58 PM us Romy Pena DO MRI Final Re sult documented in this encounter Visit Diagnoses Diagnosis Chronic left hip pain Pain in joint, pelvic region and thigh Pain of left hip documented in this encounter Additional Health Concerns Assessment Noted Time PHQ-9 Depression Total Score: 0 04/30/19 21 9:32 AM VICE PRESIDENT OF OPERATIONS documented as of this encounter Care Teams Extruding Press Operator Relationship Specialty Start Date End Date Romy Pena DO [address] [place] [address] PCP - General FAMILY PRACTICE 04/10/19 documented as of this encounter
--- OUTSIDE RECORDS SUMMARY | 2024-03-19 20:50 | XMS_ITS | Encounter Summary ---
Author Organization [facility] Address [address] [place] [address]. [place], [place] [address] [place] [address] Care Team Providers Care Epic Kaleidoscope Analyst Name Role Phone Jaden Thakur DO Primary Care Provider + Encounter Details Date Type Department Care Team (Latest Contact Info) Description 10/19/2022 Scan HEALTH INFO SRVCS Scanned, Doc Med [...] on file Legal Sex Female 2:33 PM COMMERCIAL SALES REPRESENTATIVE Gender Identity Not on file Sexual [...] Total Score: 0 04/30/19 21 9:32 AM COMMERCIAL SALES REPRESENTATIVE documented as of this encounter Care Teams Epic Kaleidoscope Analyst Relationship Specialty Start Date End Date Jaden Thakur DO [address] [place] [id number] PCP - General FAMILY PRACTICE 04/10/19 documented as of this encounter
--- OUTSIDE RECORDS SUMMARY | 2024-03-19 20:50 | XMS_ITS | Encounter Summary ---
Author Organization [facility] Address [address] [place] [address]. [place], [place] [address] [place] [address] Care Team Providers Care Mortgage Clerk Name Role Phone Jaden Thakur DO Primary Care Provider + Encounter Details Date Type Department Care Team (Latest Contact Info) Description 12/22/2022 Travel Social History Tobacco Use Types Packs/Day [...] on file Legal Sex Female 2:33 PM CLAIMS ADJUSTER SUPERVISOR Gender Identity Not on file Sexual [...] Total Score: 0 04/30/19 21 9:32 AM CLAIMS ADJUSTER SUPERVISOR documented as of this encounter Care Teams Mortgage Clerk Relationship Specialty Start Date End Date Jaden Thakur DO [address] [place] [address] PCP - General FAMILY PRACTICE 04/10/19 documented as of this encounter
--- OUTSIDE RECORDS SUMMARY | 2024-03-19 20:50 | XMS_ITS | Encounter Summary ---
Author Organization [facility] Address [address] [place] [address]. [place], [place] [address] [place] [address] Care Team Providers Care Systems Protection Technician Name Role Phone Jaden Thakur DO Primary Care Provider + Reason for Visit * Reason Comments Physical Patient presents for annual physical. Patient states she has noticed headaches more frequently and feels the medication is not longer working. Encounter Details Date Type Department Care Team (Late st Contact Info) Description 06/13/2022 11:20 AM CDT Office Visit [facility] Medical [facility] Family & Internal Medicine [address] [address] Jaden Thakur DO [address] [place] [phone] Physical (Patient presents for annual physical. Patient states she has noticed headaches more frequently and feels the medication is not longer working. 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 Gender Identity Not on file Sexual [...] AM CDT documented as of this encounter Last Filed Vital Signs Vital Sign Reading Time Taken Comments Blood Pressure 130/94 06/13/2022 12:07 PM CDT Pulse 100 06/13/2022 11:22 AM CDT Temperature 37.1 ??C (98.7 ??F) 06/13/2022 1 1:22 AM CDT Respiratory Rate 16 06/13/2022 11:2 2 AM CDT Oxygen Saturation 97% 06/13/2022 11: 22 AM CDT Inhaled Oxygen Concentration - - Weight 91.5 kg (201 lb 11.2 oz) 023 11:22 AM CDT Height 162.6 cm (5' 4 ) 06/13/2022 11:2 2 AM CDT Body Mass Index 34.62 06/13/2022 11:22 AM CDT documented in this encounter Patient Instructions * Attachments The following attachments cannot be sent through Care Everywhere. * Yearly Physical for Adults (Armenian) documented in this encounter Progress Notes * Jaden Thakur, - 06/13/2022 11:20 AM CDT Images from the original note were not included. GENERAL OFFICE VISIT Encounter Date: 06/13/2022 Chief Complaint: 41-year-old female presents for Physical (Patient presents for annual physical. Patient states she has noticed headaches more frequently and feels the medication is not longer working. ) HPI: The patient is being seen for a health maintenance evaluation. General Health: good Dental Health: Sees dentist regularly Vision Health: Wears contacts and Last eye exam < 1 year ago Hearing Health: No hearing problems Immunizations Needed: UTD Weight: Obese Body mass index is 34.62 kg/m??. Physical Activity: Excersises regularly Cervical Cancer Screening: Sees DIGITAL MARKETING COORDINATOR Breast Cancer Screening: Not indicated Colorectal Cancer Screening: Colonoscopy last done: 08/25/21, repeat in 5 years Metabolic Screening: Patient has not been screened previously within the past year. HCV Screening: Patient had negative screening PHQ-9 Screening Score: 0 Smoking Status: History Smoking Status ??? Former ??? Packs/day: 0.50 ??? Years: 10.00 ??? Types: Cigarettes ??? Quit date: 03/12/2015 Smokeless Tobacco ??? Never Patient does not meet criteria for Low Dose CT screening Sleep Apnea Risk Factors: None Pt has migraines. Pt is on amitriptyline for prevention and rizatriptan for acute management. They have been getting worse, either severity or frequency. She does not feel the rizatriptan is working as well. Review of Systems Constitutional: Negative for fever. HENT: See HPI Eyes: See HPI Respiratory: Negative for shortness of breath. Cardiovascular: Negative for chest pain. Gastrointestinal: Negative for abdominal pain. Genitourinary: Negative for dysuria. Skin: Negative for rash. Psychiatric/Behavioral: Negative for depression. Patient Active Problem List Diagnosis ??? GERD (gastroesophageal reflux disease) ??? BMI 30.0-30.9,adult ??? Seasonal allergies ??? Elevated fasting glucose Past Medical History: Diagnosis Date ??? Allergy ??? GERD (gastroesophageal reflux disease) Past Surgical History: Procedure Laterality Date ??? SECTION x 2 ??? CHOLECYSTECTOMY ??? SCREENING COLONOSCOPY August 2021, repeat in 5 years Family History Problem Relation Name Age of Onset ??? Hypertension Mother ??? Thyroid Mother ??? Diabetes Mother Social History Socioeconomic History ??? Marital status: Spouse name: Not on file ??? Number of children: 2 ??? Years of education: Not on file ??? Highest education level: Not on file Occupational History ??? 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 Smoking status: Former Packs/day: 0.50 Years: 10.00 Pack years: 5.00 Types: Cigarettes Quit date: 03/12/2015 Years since quittin.2 ??? Smokeless tobacco: Never Substance and Sexual Activity ??? Alcohol use: Yes ??? Drug use: Never ??? Sexual activity: Not on file Other Topics Concern ??? Not on file Social History Narrative ??? Not on file Social Determinants of Health Financial Resource Strain: Not on file Food Insecurity: Not on file Transportation Needs: Not on file Physical Activity: Not on file Stress: Not on file Social Connections: Not on file Intimate Partner Violence: Not on file Housing Stability: Not on file Immunization History Administered Date(s) Administered ??? Influenza 12/11/2015, 12/13/2018, 12/13/2020 ??? Influenza Adult (Generic) 01/06/2013, 12/15/2019, 12/10/2021 ??? MODERNA COVID-19 BIVALENT BOOSTER (12+), MRNA, LNP-S, PF 01/09/2022 ??? PFIZER COVID-19 (ORIGINAL FORMULATION, PURPLE CAP), MRNA, LNP-S, PF, 30 MCG/0.3 ML DOSE 03/03/2020, 03/25/2020, 03/09/2021 ??? Tdap (Generic) 12/21/2015 Current Outpatient Medications Medication Sig Dispense Refill ??? amitriptyline (ELAVIL) 50 MG tablet Take 1 tablet (50 mg total) by mouth nightly at bedtime. 30tablet 0 ??? Cetirizine HCl 10 MG TABLET DISPERSIBLE Take 1 tablet (10 mg total) by mouth daily. ??? Cholecalciferol (VITAMIN D3) 50 MCG (2000 UT) Tab Take by mouth daily. ??? levonorgestrel-ethinyl estradiol 0.1-20 MG-MCG tablet TAKE 1 TABLET BY MOUTH ONCE DAILY ??? omeprazole 20 MG capsule Take 1 capsule (20 mg total) by mouth daily. 90 capsule 3 ??? rizatriptan (MAXALT) 10 MG tablet Take 1 tablet (10 mg total) by mouth as needed for Migraine. May repeat in 2 hours if needed 30 tablet 1 No current facility-administered medications for this visit. Current Outpatient Medications on File Prior to Visit Medication Sig ??? Cetirizine HCl 10 MG TABLET DISPERSIBLE Take 1 tablet (10 mg total) by mouth daily. ??? Cholecalciferol (VITAMIN D3) 50 MCG (2000 UT) Tab Take by mouth daily. ??? levonorgestrel-ethinyl estradiol 0.1-20 MG-MCG tablet TAKE 1 TABLET BY MOUTH ONCE DAILY ??? omeprazole 20 MG capsule Take 1 capsule (20 mg total) by mouth daily. No current facility-administered medications on file prior to visit. Allergies Allergen Reactions ??? Latex Rash Objective: Filed Vitals: 06/13/22 1122 06/13/22 1207 BP: (!) 128/94 (!) 130/94 Pulse: 100 Resp: 16 Temp: 98.7 ??F (37.1 ??C) TempSrc: Skin SpO2: 97% Weight: 91.5 kg (201 lb 11.2 oz) Height: 5' 4 (1.626 m) Physical Exam Vitals and nursing note reviewed. HENT: Head: Normocephalic and atraumatic. Right Ear: Tympanic membrane, ear canal and external ear normal. Left Ear: Tympanic membrane, ear canal and external ear normal. Eyes: General: No scleral icterus. Conjunctiva/sclera: Conjunctivae normal. Cardiovascular: Rate and Rhythm: Normal rate and regular rhythm. Heart sounds: Normal heart sounds. No murmur heard. No friction rub. No gallop. Pulmonary: Effort: Pulmonary effort is normal. No respiratory distress. Breath sounds: Normal breath sounds. No wheezing or rales. Abdominal: Palpations: Abdomen is soft. Tenderness: There is no abdominal tenderness. Musculoskeletal: Cervical back: Neck supple. Lymphadenopathy: Cervical: No cervical adenopathy. Skin: General: Skin is warm and dry. Findings: No rash. Neurological: General: No focal deficit present. Mental Status: She is alert. Psychiatric: Mood and Affect: Mood and affect normal. Assessment & Plan: Consuelo was seen today for physical. Diagnoses and all orders for this visit: Encounter for preventative adult health care examination - CBC W/DIFF AUTOMATED; Future - COMPREHENSIVE METABOLIC PANEL; Future - TSH W/REFLEX; Future - LIPID PANEL; Future - VITAMIN D, 25 OH; Future - CBC W/DIFF AUTOMATED - COMPREHENSIVE METABOLIC PANEL - TSH W/REFLEX - LIPID PANEL - VITAMIN D, 25 OH Migraine without aura and without status migrainosus, not intractable - rizatriptan (MAXALT) 10 MG tablet; Take 1 tablet (10 mg total) by mouth as needed for Migraine. May repeat in 2 hours if needed - amitriptyline (ELAVIL) 50 MG tablet; Take 1 tablet (50 mg total) by mouth nightly at bedtime. Screening for lipid disorders - CBC W/DIFF AUTOMATED; Future - COMPREHENSIVE METABOLIC PANEL; Future - TSH W/REFLEX; Future - LIPID PANEL; Future - VITAMIN D, 25 OH; Future - CBC W/DIFF AUTOMATED - COMPREHENSIVE METABOLIC PANEL - TSH W/REFLEX - LIPID PANEL - VITAMIN D, 25 OH Screening for endocrine, metabolic and immunity disorder - CBC W/DIFF AUTOMATED; Future - COMPREHENSIVE METABOLIC PANEL; Future - TSH W/REFLEX; Future - LIPID PANEL; Future - VITAMIN D, 25 OH; Future - CBC W/DIFF AUTOMATED - COMPREHENSIVE METABOLIC PANEL - TSH W/REFLEX - LIPID PANEL - VITAMIN D, 25 OH Vitamin D deficiency - CBC W/DIFF AUTOMATED; Future - COMPREHENSIVE METABOLIC PANEL; Future - TSH W/REFLEX; Future - LIPID PANEL; Future - VITAMIN D, 25 OH; Future - CBC W/DIFF AUTOMATED - COMPREHENSIVE METABOLIC PANEL - TSH W/REFLEX - LIPID PANEL - VITAMIN D, 25 OH BMI 34.0-34.9,adult Discussion/Summary: Portions of exam today were done for both preventive purposes as well as chronic management. For preventive purposes, expected and preventive management discussed, including diet, exercise, screeninglabs, screening test, and immunization schedule. Patient is up-to-date on vaccines. Order labs per above. Will defer Pap smears and mammogram to gynecology. For chronic management, will increase rizatriptan today and will increase amitriptyline. If she needs to increase amitriptyline up to 100 mg,we can do so without office visit. Consider alternative medications if not improving as expected. Will also recheck blood pressure in 3 months, as this may be complicating factor if actually high on r epeat testing. Will have patient follow-up in 3 months for reassessment. Patient verbalized understanding. Jaden Thakur DO documented in this encounter Plan of Treatment Scheduled Orders Name Type Priority Associated Diagnoses Orde r Schedule CBC W/DIFF AUTOMATED Lab Routine Screening for lipid disorders Screening for endocrine, metabolic and immunity disorder Vitamin D deficiency Encounter for preventative adult health care examination Expected: 06/13/2022, Expires: 06/14/2023 COMPREHENSIVE METABOLIC PANEL Lab Routine Screening for lipid disorders Screening for endocrine, metabolic and immunity disorder Vitamin D deficiency Encounter for preventative adult health care examination Expected: 06/13/2022, Expires: 06/14/2023 TSH W/REFLEX Lab Routine Screening for lipid disorders Screening for endocrine, metabolic and immunity disorder Vitamin D deficiency Encounter for preventative adult health care examination Expected: 06/13/2022, Expires: 06/14/2023 LIPID PANEL Lab Routine Screening for lipid disorders Screening for endocrine, metabolic and immunity disorder Vitamin D deficiency Encounter for preventative adult health care examination Expected: 06/13/2022, Expires: 06/14/2023 VITAMIN D, 25 OH Lab Routine Screening for lipid disorders Screening for endocrine, metabolic and immunity disorder Vitamin D deficiency Encounter for preventative adult health care examination Expected: 06/13/2022, Expires: 06/14/2023 documented as of this encounter Visit Diagnoses Diagnosis Encounter for preventative adult health care examination- Primary Migraine without aura and without status migrainosus, not intractable Migraine without aura, without mention of intractable migraine without mention of status migrainosus Screening for lipid disorders Screening for endocrine, metabolic and immunity disorder Vitamin D deficiency Unspecified vitamin D deficiency BMI 34.0-34.9,adult Body Mass Index 34.0-34.9, adult documented in this encounter Additional Health Concerns Assessment Noted Time PHQ-9 Depression Total Score: 0 04/30/19 21 9:32 AM FILAMENT TESTER documented as of this encounter Care Teams Systems Protection Technician Relationship Specialty Start Date End Date Jaden Thakur DO [address] [place], [place] [phone] PCP - General FAMILY PRACTICE 04/10/19 documented as of this encounter
--- OUTSIDE RECORDS SUMMARY | 2024-03-19 20:50 | XMS_ITS | Encounter Summary ---
Author Organization [facility] Address [address] [place] [address]. [place], [place] [phone] [place] [address] Care Team Providers Care Activities Therapist Name Role Phone Jaden Thakur DO Primary Care Provider + Reason for Visit * Reason Onset Date Comments Medication Request 02/17/2023 Encounter Details Date Type Department Care Team (Late st Contact Info) Description 02/17/2023 [place] Stem Cell Message Enc [facility] Medical Group Family & Internal Medicine [facility] [address] [place] [address] Jaden Thakur DO [address] [place] [address] I forgot to ask for twdiflucan I also end up getting yeast infection while on antibiotics Social History Tobacco Use Types Packs/Day Years [...] on file Legal Sex 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 I forgot to ask for twdiflucan I also end up getting yeast infection while on antibiotics 38:48 AM Reply to Patient Visible to: Consuelo Darby MING TEACHER documented in this encounter Plan of Treatment Not on file documented as of this encounter Visit Diagnoses Diagnosis Antibiotic-induced yeast infection- Primary documented in this encounter Additional Health Concerns Assessment Noted Time PHQ-9 Depression Total Score: 0 04/30/19 21 9:32 AM SWIMMING TEACHER documented as of this encounter Care Teams Activities Therapist Relationship Specialty Start Date End Date Jaden Thakur DO [address] [place] [address] PCP - General FAMILY PRACTICE 04/10/19 documented as of this encounter
--- OUTSIDE RECORDS SUMMARY | 2024-03-19 20:50 | XMS_ITS | Encounter Summary ---
Author Organization [facility] Address [address] [place] [address]. 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 file documented as of this encounter Plan of Treatment Not on file documented as of this encounter Procedures Procedure Name Priority Date/Time Associated Diagnosis Comments PROCEDURE GENERIC (SCAN ORDER) 02/21/2023 documented in this encounter Results * PROCEDURE GENERIC (02/21/2023) 02/21/2023 us Doc Med Group Scanned SCANNING Final Resu lt documented in this encounter Visit Diagnoses Not on filedocumented in this encounter Additional Health Concerns Assessment Noted Time PHQ-9 Depression Total Score: 0 04/30/19 21 9:32 AM WASTEWATER SUPERINTENDENT documented as of this encounter Care Teams Lock Operator Relationship Specialty Start Date End Date Jaden Thakur DO [address] [place], [place] [phone] PCP - General FAMILY PRACTICE 04/10/19 documented as of this encounter
--- OUTSIDE RECORDS SUMMARY | 2024-03-19 20:50 | XMS_ITS | Encounter Summary ---
Author Organization [facility] Address [address] [place] [address]. [place], [place] [phone] [place] [address] Care Team Providers Care Sales Technician Home Theater Name Role Phone Jaden Thakur DO Primary Care Provider + Encounter Details Date Type Department Care Team (Latest Contact Info) Description 01/26/2023 Scan HEALTH INFO SRVCS Scanned, Doc Med [...] file Legal Sex Female 2:33 PM SUPERVISOR HEADING Gender Identity Not on file Sexual Orientation [...] Score: 0 04/30/19 21 9:32 AM SUPERVISOR HEADING documented as of this encounter Care Teams Sales Technician Home Theater Relationship Specialty Start Date End Date Jaden Thakur DO [address] [place] [id number] PCP - General FAMILY PRACTICE 04/10/19 documented as of this encounter
--- OUTSIDE RECORDS SUMMARY | 2024-03-19 20:50 | XMS_ITS | Encounter Summary ---
Author Organization [facility] Address [address] [place] [address]. [place], [place] [phone] [place] [address] Care Team Providers Care Buttonholer Name Role Phone Jaden Thakur DO Primary Care Provider + Reason for Visit * Reason Onset Date Comments Results 01/02/2023 Encounter Details Date Type Department Care Team (Late st Contact Info) Description 01/02/2023 Telephone [facility] Family & Internal Medicine [facility] [address] [place] [address] Jaden Thakur DO [address] [place] [address] Results Social History Tobacco Use [...] on file Legal Sex Female 2:33 PM OUTPATIENT INTERVIEWING CLERK Gender Identity Not on file Sexual Orientation Not on file 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 Will consider doing some days 5 mg and some days 6 mg going forward. Recheck on of this week, 01/04/23. 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
--- OUTSIDE RECORDS SUMMARY | 2024-03-19 20:50 | XMS_ITS | Encounter Summary ---
Author Organization [facility] Address [address] [place] [address]. [place], [place] [phone] [place] [address] Care Team Providers Care Sheep Rancher Name Role Phone Jaden Thakur DO Primary Care Provider + Reason for Visit * Reason Onset Date Comments Record Request 01/17/2022 Encounter Details Date Type Department Care Team (Late st Contact Info) Description 01/17/2022 Telephone [facility] Medical Group Family & Internal Medicine [facility] [address] [place] [phone] Jaden Thakur DO [address] [place] [address] Record Request Social History Tobacco Use Types Packs/Day [...] file Legal Sex Female 2:33 PM PUBLIC UTILITIES SALES REPRESENTATIVE Gender Identity Not on file Sexual Orientation Not on file 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 BOURNE for this patient's PAP SMEAR results. IC UTILITIES SALES REPRESENTATIVE documented in this encounter Plan of Treatment Not on file documented as of this encounter Visit Diagnoses Not on filedocumented in this encounter Additional Health Concerns Assessment Noted Time PHQ-9 Depression Total Score: 0 04/30/19 21 9:32 AM PUBLIC UTILITIES SALES REPRESENTATIVE documented as of this encounter Care Teams Sheep Rancher Relationship Specialty Start Date End Date Jaden Thakur DO [address] [place] [address] PCP - General FAMILY PRACTICE 04/10/19 documented as of this encounter
--- OUTSIDE RECORDS SUMMARY | 2024-03-19 20:50 | XMS_ITS | Encounter Summary ---
Author Organization [facility] Address [address] [place] [address]. 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 In particular, Wegovy is almost always on back order anytime we prescribe it. documented in this encounter Plan of Treatment Not on file documented as of this encounter Visit Diagnoses Not on filedocumented in this encounter Additional Health Concerns Assessment Noted Time PHQ-9 Depression Total Score: 0 04/30/19 21 9:32 AM ASSISTANT CUSTOMER SERVICE MANAGER documented as of this encounter Care Teams Screenplay Writer Relationship Specialty Start Date End Date Jaden Thakur DO [address] [place] [id number] PCP - General FAMILY PRACTICE 04/10/19 documented as of this encounter
--- OUTSIDE RECORDS SUMMARY | 2024-03-19 20:50 | XMS_ITS | Encounter Summary ---
Author Organization [facility] Address [address] [place] [address]. [place], [place] [phone] [place] [address] Care Team Providers Care Bulldozer Engineer Name Role Phone Jaden Thakur DO Primary Care Provider + Encounter Details Date Type Department Care Team (Latest Contact Info) Description 04/04/2023 Travel Social History Tobacco Use Types Packs/Day [...] Legal Sex Female 2:33 PM DIRECTOR OF NATIONAL SALES Gender Identity Not on file Sexual Orientation [...] 0 04/30/19 21 9:32 AM DIRECTOR OF NATIONAL SALES documented as of this encounter Care Teams Bulldozer Engineer Relationship Specialty Start Date End Date Jaden Thakur DO [address] [place] [address] PCP - General FAMILY PRACTICE 04/10/19 documented as of this encounter
--- OUTSIDE RECORDS SUMMARY | 2024-03-19 20:51 | XMS_ITS | Encounter Summary ---
Author Organization [facility] Address [address] [place] [address]. [address] [address] Care Team Providers Care Lead Software Architect Name Role Phone Jaden Thakur DO Primary Care Provider + Reason for Visit * Reason Onset Date Comments Lab Order 11/07/2019 Encounter Details Date Type Department Care Team (Late st Contact Info) Description 11/07/2019 Telephone [facility] Medical Group Family & Internal Medicine 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 * Jaden Thakur DO - 11/12/2019 2:17 PM CDT A1c is 5.6; no further action needed in this task. * Nae Franco MA - 11/07/2019 12:41 PM CDT Spoke to Paola at [facility], test added. * Jaden Thakur DO - 11/07/2019 10:14 AM CDT Can we add on an A1c? [facility] documented in this encounter Plan of Treatment Not on file documented as of this encounter Visit Diagnoses Not on filedocumented in this encounter Care Teams Lead Software Architect Relationship Specialty Start Date End Date Jaden Thakur DO [address] [place] [id number] PCP - General FAMILY PRACTICE 04/10/19 documented as of this encounter
--- OUTSIDE RECORDS SUMMARY | 2024-03-19 20:51 | XMS_ITS | Encounter Summary ---
Author Organization [facility] Address [address] [place] [address]. [place], [place] [address] [place] [address] Care Team Providers Care Paper Reel Operator Name Role Phone Jaden Thakur DO Primary Care Provider + Encounter Details Date Type Department Care Team (Late st Contact Info) Description 11/06/2019 Orders Only [facility] Medical Group Family & Internal Medicine 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 Vitamin D is mildly low; recommend 2000 IU daily. Other labs WNL. Titers show sufficient levels;no needed repeat immunization. Repeat screening labs in 1 year. documented in this encounter Plan of Treatment Not on file documented as of this encounter Procedures Procedure Name Priority Date/Time Associated Diagnosis Comments TEST AUTHORIZATION 11/06/2019 9: 38 AM CDT HEMOGLOBIN, GLYCOSYLATED 11/06/2019 9:38 AM CDT COMPREHENSIVE METABOLIC PANEL 11/06/2019 9:38 AM CDT CBC W/DIFF AUTOMATED 11/06/2019 9:38 AM CDT THYROID STIM HORMONE TSH 11/06/2019 9:38 AM CDT VITAMIN D, 25 [place] 11/06/2019 9:38 AM CDT documented in this encounter Results * TEST AUTHORIZATION (11/06/2019 9:38 AM CDT) REPORT STATUS COMMENT [facility] 1 Comment: Written Authorization Written Authorization Written Authorization Received. Authorization received from KIMBERLY GARRETT 11-12-2019 Logged by Criss Pacheco 11/06/2019 9:38 AM CDT 11/06/2019 Narrative [facility] - 11/13/2019 3:07 AM CDT Performed at: ??01 - [facility] [address] ??[id number] Brush Head Maker: Pal Anderson PhD, Phone: ??[phone] us Jaden Thakur DO LABORATORY Final Re sult [facility] [address] [place] [address] [facility] 1 * HEMOGLOBIN, GLYCOSYLATED (11/06/2019 9:38 AM CDT) HGB A1C 5.6 4.8 - 5.6 % [facility] 1 Comment: ? Prediabetes: 5.7 - 6.4 ? Diabetes: >6.4 ? Glycemic control for adults with diabetes: <7.0 11/06/2019 9:38 AM CDT 11/06/2019 Narrative [facility] - 11/13/2019 3:07 AM CDT Performed at: ??01 - [facility] [address], [place], [place] ??[id number] Brush Head Maker: Pal Anderson PhD, Phone: ??[phone] Jaden Thakur DO LABORATORY Final Re sult [facility] [address] [place] [address] [facility] 1 * (ABNORMAL) VITAMIN D, 25 OH (11/06/2019 9:38 AM CDT) Pathologist [facility] VITAMIN D 25 HYDROXY S/P/B 24.5(L) 30.0 - 100.0 ng/mL [facility] 1 Comment: Vitamin D deficiency has been defined by the [place] of Medicine and an Endocrine Society practice guideline as a level of serum 25-OH vitamin D less than 20 ng/mL (1,2). The Endocrine Society went on to further define vitamin D insufficiency as a level between 21 and 29 ng/mL (2). 1. IOM ([place] of Medicine). 2010. Dietary reference ?? intakes for calcium and D. [place]: The ?? National Academies Press. 2. Rangel MF, Feliciano [place], Jarett MOREIRA, et al. ?? Evaluation, treatment, and prevention of vitamin D ?? deficiency: an Endocrine Society clinical practice ?? guideline. JCEM. 2011 Sep; 96(7):1911-30. 11/06/2019 9:38 AM CDT 11/06/2019 Narrative [facility] - 11/07/2019 9:10 AM CDT Performed at: ??01 - [facility] [address] ??[id number] Brush Head Maker: Pal Anderson PhD, Phone: ??[phone] Jaden Thakur DO LABORATORY Final Re sult Performing Organization Address [facility] Co de Phone Number [facility] [address] [place] [address] [facility] 1 * THYROID STIM HORMONE, TSH (11/06/2019 9:38 AM CDT) Pathologist [facility] TSH 1.840 0.450 - 4.50 uIU/mL [facility] 1 11/06/2019 9:38 AM CDT 11/06/2019 Narrative [facility] - 11/07/2019 9:10 AM CDT Performed at: ??01 - [facility] ??[id number] Brush Head Maker: Pal Anderson PhD, Phone: ??[phone] Jaden Thakur DO LABORATORY Final Re sult Performing Organization Address [facility] de Phone Number [facility] [address] [place] [address] [facility] 1 * (ABNORMAL) COMPREHENSIVE METABOLIC PANEL (11/06/2019 9:38 AM CDT) Pathologist [facility] GLUCOSE 108(H) 65 - 99 mg/dL [facility] 1 BUN 7 6 - 20 mg/dL [facility] 1 CREATININE S/P/B 0.81 0.57 - 1.00 mg/dL [facility] 1 EGFR NON-AFR. AMER. 93 >59 mL/min/1.7 3 [facility] 1 EGFR AFR. AMER. 107 >59 mL/min/1.7 3 [facility] 1 BUN CREATININE RATIO 9 9 - 23 [facility] 1 SODIUM S/P/B 139 134 - 144 mmol/L [facility] 1 POTASSIUM S/P/B 4.3 3.5 - 5.2 mmol/L [facility] 1 CHLORIDE S/P/B 101 96 - 106 mmol/L [facility] 1 CO2 24 20 - 29 mmol/L [facility] 1 CALCIUM S/P/B 9.1 8.7 - 10.2 mg/dL [facility] 1 TOTAL PROTEIN S/P/B 7.1 6.0 - 8.5 g/dL [facility] 1 ALBUMIN S/P/B 3.9 3.8 - 4.8 g/dL [facility] 1 GLOBULIN 3.2 1.5 - 4.5 g/dL [facility] 1 A/G RATIO 1.2 1.2 - 2.2 [facility] 1 BILIRUBIN TOTAL S/P/B 0.2 0.0 - 1.2 mg/dL [facility] 1 ALKALINE PHOSPHATASE S/P/B 51 39 - 117 IU/L [facility] 1 AST 12 0 - 40 IU/L [facility] 1 ALT 8 0 - 32 IU/L [facility] 1 11/06/2019 9:38 AM CDT 11/06/2019 Narrative [facility] - 11/07/2019 9:10 AM CDT Performed at: ??01 - [address] ??[id number] Brush Head Maker: Pal Anderson PhD, Phone: ??[phone] Jaden Thakur DO LABORATORY Final Re sult [facility] [address] [place] [address] [facility] 1 * (ABNORMAL) CBC W/DIFF AUTOMATED (11/06/2019 9:38 AM CDT) Pathologist [facility] WBC 10.7 3.4 - 10.8 x10E3/uL [facility] 1 RBC 4.54 3.77 - 5.28 x10E6/uL [facility] 1 HGB 13.6 11.1 - 15.9 g/dL [facility] 1 HCT 42.1 34.0 - 46.6 % [facility] 1 MCV 93 79 - 97 fL [facility] 1 MCH 30.0 26.6 - 33.0 pg [facility] 1 MCHC 32.3 31.5 - 35.7 g/dL [facility] 1 RDW 12.9 11.7 - 15.4 % [facility] 1 PLATELET COUNT 373 150 - 450 x10E3/uL [facility] 1 NEUTROPHILS % 75 Not Estab. % [facility] 1 LYMPHOCYTES % 19 Not Estab. % [facility] 1 MONOCYTES % 5 Not Estab. % [facility] 1 EOSINOPHILS % 1 Not Estab. % [facility] 1 BASOPHILS % 0 Not Estab. % [facility] 1 ABS. NEUTROPHILS 8.1(H) 1.4 - 7.0 x10E3/uL [facility] 1 ABS. LYMPHOCYTES 2.0 0.7 - 3.1 x10E3/uL [facility] 1 MONOCYTES 0.5 0.1 - 0.9 x10E3/uL [facility] 1 ABS. EOSINOPHILS 0.1 0.0 - 0.4 x10E3/uL [facility] 1 ABS. BASOPHILS 0.0 0.0 - 0.2 x10E3/uL [facility] 1 ABS. IMMATURE GRANULOCYTES 0 Not Estab. % [facility] 1 ABS. IMMATURE GRANULOCYTES 0.0 0.0 - 0.1 x10E3/uL [facility] 1 11/06/2019 9:38 AM CDT 11/06/2019 Narrative [facility] - 11/07/2019 9:10 AM CDT Performed at: ??01 - [facility] [address] ??[id number] Brush Head Maker: Pal Anderson PhD, Phone: ??[phone] us Jaden Thakur DO LABORATORY Final Re sult Performing Organization Address [facility] Co de Phone Number [facility] [address] [place] [address] [facility] 1 documented in this encounter Visit Diagnoses Not on filedocumented in this encounter Care Teams Paper Reel Operator Relationship Specialty Start Date End Date Jaden Thakur DO [address] [place] [address] PCP - General FAMILY PRACTICE 04/10/19 documented as of this encounter
--- OUTSIDE RECORDS SUMMARY | 2024-03-19 20:51 | XMS_ITS | Encounter Summary ---
Author Organization [facility] Address [address] [place] [address]. [place], [place] [address] [place] [address] Care Team Providers Care Monotype Keyboard Operator Name Role Phone Jaden Thakur DO Primary Care Provider + Reason for Referral * Consultation (Routine) - Closed Specialty Diagnoses / Procedures Referred By Contac t Referred To Contact GASTROENTEROLOGY Diagnoses Screening for malignant neoplasm of colon Jaden Thkaur DO [address] [place] [address] Phone: tel: fax: Sathya Foster MD Phone: tel: fax: Referral ID Status Reason Start Date Expiration Date Visits Re quested Visits Authorized [id number] Closed 06/14/2021 07/14/2022 100 100 Scheduling Instructions Had seen Dr. Foster in the past at [facility] Reason for Visit * Reason Comments Annual pt. c/o frequent [facility] Encounter Details Date Type Department Care Team (Late st Contact Info) Description 06/14/2021 7:00 AM CDT Office Visit [facility] Family & Internal Medicine [id number] [place] [address] Jaden Thakur DO [address] [place] [address] Annual (pt. 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 No / Unsure 06/14/2021 6:46 AM CDT documented as of this encounter Last Filed Vital Signs Vital Sign Reading Time Taken Comments Blood Pressure 118/70 06/14/2021 7:24 AM CDT Pulse 88 06/14/2021 7:24 AM CDT Temperature 36.7 ??C (98 ??F) 06/14/2021 7:24 AM CDT Respiratory Rate 16 06/14/2021 7:24 AM CDT Oxygen Saturation 97% 06/14/2021 7:24 AM CDT Inhaled Oxygen Concentration - - Weight 83 kg (183 lb) 06/14/2021 7:24 AM CDT Height 162.6 cm (5' 4 ) 06/14/2021 7:24 AM CDT Body Mass Index 31.41 06/14/2021 7:24 AM CDT documented in this encounter Progress Notes * Jaden Thakur, - 06/14/2021 7:00 AM CDT Images from the original note were not included. GENERAL OFFICE VISIT Encounter Date: 06/14/21 Chief Complaint: 40-year-old female presents for Annual (pt. c/o frequent headachs) HPI: Pt presents for increased headache frequency. Pt would have occasional headaches in the past. She had a correlation of being on off weeks for control. This improved her symptoms initially. Now,they just occur and are not related to hormonal cycles. Pt will note symptoms appear quickly and are quite severe on presentation. It is usually higher and behind left eye. No bilateral squeezing sensation. Pain progressive gets worse. No lacrimation or drooping. Pt has had to take more OTC analgesics to have success with headache . Pt has on average ten migraines a month. Has woken up inthe middle of the night, but no other time pattern. Associated symptoms include N/V and vision changes. Pt needs referral for colonoscopy. Review of Systems Constitutional: Negative for fever. HENT: Negative for hearing loss. Eyes: See HPI Respiratory: Negative for shortness of breath. Cardiovascular: Negative for chest pain. Gastrointestinal: See HPI Genitourinary: Negative for dysuria. Skin: Negative for rash. Neurological: See HPI Psychiatric/Behavioral: Negative for depression. Patient Active Problem List Diagnosis ??? GERD (gastroesophageal reflux disease) ??? BMI 30.0-30.9,adult ??? Seasonal allergies ??? Elevated fasting glucose Past Medical History: Diagnosis Date ??? Allergy ??? GERD (gastroesophageal reflux disease) Past Surgical History: Procedure Laterality Date ??? SECTION x 2 ??? CHOLECYSTECTOMY Family History Problem Relation Name Age of Onset ??? Hypertension Mother ??? Thyroid Mother ??? Diabetes Mother Social History Socioeconomic History ??? Marital status: Spouse name: Not on file ??? Number of children: 2 ??? Years of education: Not on file ??? Highest education level: Not on file Occupational History ??? 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 Smoking status: Former Smoker Packs/day: 0.50 Years: 10.00 Pack years: 5.00 Types: Cigarettes Quit date: 2015 Years since quittin.2 ??? Smokeless tobacco: Never Used Substance and [...] file Intimate Partner Violence: Not on file Immunization History Administered Date(s) Administered ??? Influenza 12/11/2015, 12/13/2018, 12/13/2020 ??? Influenza Adult (Generic) 01/06/2013, 12/15/2019 ??? PFIZER COVID-19 (ORIGINAL FORMULATION, PURPLE CAP), MRNA, LNP-S, PF, 30 MCG/0.3 ML DOSE 03/03/2020, 03/25/2020 ??? Tdap (Generic) 12/21/2015 Current Outpatient Medications Medication Sig Dispense Refill ??? amitriptyline 25 MG tablet Take 1 tablet (25 mg total) by mouth nightly at bedtime. 30 tablet 2 ??? Cetirizine HCl 10 MG TABLET DISPERSIBLE Take 10 mg by mouth daily. ??? Cholecalciferol (VITAMIN D3) 50 MCG (2000 UT) Tab Take by mouth daily. ??? levonorgestrel-ethinyl estradiol 0.1-20 MG-MCG tablet TAKE 1 TABLET BY MOUTH ONCE DAILY ??? omeprazole 20 MG capsule Take 1 capsule (20 mg total) by mouth daily. 90 capsule 3 ??? rizatriptan 5 MG tablet Take 1 tablet (5 mg total) by mouth as needed for Migraine. May repeat in 2 hours if needed times one dose 30 tablet 1 No current facility-administered medications for this visit. Current Outpatient Medications on File Prior to Visit Medication Sig ??? Cetirizine HCl 10 MG TABLET DISPERSIBLE Take 10 mg by mouth daily. ??? Cholecalciferol (VITAMIN D3) 50 MCG (2000 UT) Tab Take by mouth daily. ??? levonorgestrel-ethinyl estradiol 0.1-20 MG-MCG tablet TAKE 1 TABLET BY MOUTH ONCE DAILY ??? omeprazole 20 MG capsule Take 1 capsule (20 mg total) by mouth daily. No current facility-administered medications on file prior to visit. Allergies Allergen Reactions ??? Latex Rash Objective: Filed Vitals: 06/14/21 0724 BP: 118/70 Pulse: 88 Resp: 16 Temp: 98 ??F (36.7 ??C) TempSrc: Temporal SpO2: 97% Weight: 83 kg (183 lb) Height: 5' 4 (1.626 m) Physical Exam Vitals and nursing note reviewed. Constitutional: General: She is not in acute distress. HENT: Head: Normocephalic and atraumatic. Right Ear: Tympanic membrane, ear canal and external ear normal. Left Ear: Tympanic membrane, ear canal and external ear normal. Mouth/Throat: Pharynx: No oropharyngeal exudate. Eyes: Conjunctiva/sclera: Conjunctivae normal. Pupils: Pupils are equal, round, and reactive to light. Cardiovascular: Rate and Rhythm: Normal rate and regular rhythm. Heart sounds: Normal heart sounds. No murmur heard. No friction rub. No gallop. Pulmonary: Effort: Pulmonary effort is normal. No respiratory distress. Breath sounds: Normal breath sounds. No wheezing or rales. Abdominal: General: Bowel sounds are normal. Palpations: Abdomen is soft. Tenderness: There is no abdominal tenderness. Musculoskeletal: Cervical back: Neck supple. Lymphadenopathy: Cervical: No cervical adenopathy. Skin: General: Skin is warm and dry. Findings: No rash. Neurological: Mental Status: She is alert and oriented to person, place, and time. Gait: Gait normal. Psychiatric: Mood and Affect: Affect normal. Assessment & Plan: Consuelo was seen today for annual. Diagnoses and all orders for this visit: Migraine without aura and without status migrainosus, not intractable - rizatriptan 5 MG tablet; Take 1 tablet (5 mg total) by mouth as needed for Migraine. May repeat in 2 hours if needed times one dose - amitriptyline 25 MG tablet; Take 1 tablet (25 mg total) by mouth nightly at bedtime. Screening for lipid disorders - LIPID PANEL; Future - VENIPUNC ARM DRAW - LIPID PANEL Screening for endocrine, metabolic and immunity disorder - CBC W/DIFF AUTOMATED; Future - COMPREHENSIVE METABOLIC PANEL; Future - TSH W/REFLEX; Future - VENIPUNC ARM DRAW - CBC W/DIFF AUTOMATED - COMPREHENSIVE METABOLIC PANEL - TSH W/REFLEX Annual physical exam - CBC W/DIFF AUTOMATED; Future - COMPREHENSIVE METABOLIC PANEL; Future - TSH W/REFLEX; Future - LIPID PANEL; Future - VITAMIN D, 25 OH; Future - VENIPUNC ARM DRAW - CBC W/DIFF AUTOMATED - COMPREHENSIVE METABOLIC PANEL - TSH W/REFLEX - LIPID PANEL - VITAMIN D, 25 OH Vitamin D deficiency - VITAMIN D, 25 OH; Future - VENIPUNC ARM DRAW - VITAMIN D, 25 OH Screening for malignant neoplasm of colon - Ambulatory referral to Gastroenterology (OTHER) BMI 31.0-31.9,adult Discussion/Summary: Will start on amitriptyline and rizatriptan; discussed side effects. Will order screening labs. Will place referral for colonoscopy. Will have pt f/u in 1-2 months. Pt v/u. I spent 31 minutes today reviewing the patient's medical record, obtaining history, performing an exam, ordering medications, tests, and/or procedures, documenting in the medical record and counseling and educating the patient/family/caregiver. Jaden Thakur DO documented in this encounter Plan of Treatment Scheduled Referrals Name Type Priority Associated Diagnoses Orde r Schedule Ambulatory referral to Gastroenterology (OTHER) Referral Routine Screening for malignant neoplasm of colon Ordered: 06/14/2021 documented as of this encounter Procedures Procedure Name Priority Date/Time Associated Diagnosis Comments TSH W/REFLEX Routine 06/14/2021 8:00 AM CDT Screening for endocrine, metabolic and immunity disorder Annual physical exam COMPREHENSIVE METABOLIC PANEL Routine 06/14/2021 8:00 AM CDT Screening for endocrine, metabolic and immunity disorder Annual physical exam LIPID PANEL Routine 06/14/2021 8:00 AM CDT Screening for lipid disorders Annual physical exam CBC W/DIFF AUTOMATED Routine 06/14/2021 8:00 AM CDT Screening for endocrine, metabolic and immunity disorder Annual physical exam VITAMIN D, 25 OH Routine 06/14/2021 8:00 AM CDT Annual physical exam Vitamin D deficiency COLLECTION VENOUS BLOOD VENIPUNCTURE Routine 06/14/2021 7:41 AM CDT Screening for lipid disorders Screening for endocrine, metabolic and immunity disorder Annual physical exam Vitamin D deficiency documented in this encounter Results * VITAMIN D, 25 OH (06/14/2021 8:00 AM CDT) VITAMIN D 25 HYDROXY S/P/B 48.2 30.0 - 100.0 ng/mL [facility] 1 Comment: Vitamin D deficiency has been defined by the [place] of Medicine and an Endocrine Society practice guideline as a level of serum 25-OH vitamin D less than 20 ng/mL (1,2). The Endocrine Society went on to further define vitamin D insufficiency as a level between 21 and 29 ng/mL (2). 1. IOM ([place] of Medicine). 2010. Dietary reference ?? intakes for calcium and D. [place]: The ?? National [employer]. 2. Rangel MF, Feliciano OVALLE, Jarett MOREIRA, et al. ?? Evaluation, treatment, and prevention of vitamin D ?? deficiency: an Endocrine Society clinical practice ?? guideline. JCEM. 2010; 96(7):1911-30. 06/14/2021 8:00 AM CDT 06/14/2021 Narrative [facility] - 06/15/2021 8:17 AM CDT Performed at: ??01 - [facility] ??[id number] Blade Worker: Pal Anderson PhD, Phone: ??[phone] Jaden Thakur DO LABORATORY Final Re sult [facility] [address] [place] [address] [facility] * (ABNORMAL) LIPID PANEL (06/14/2021 8:00 AM CDT) CHOLESTEROL 180 100 - 199 mg/dL [facility] 1 TRIGLYCERIDES 231(H) 0 - 149 mg/dL [facility] 1 HDL 40 >39 mg/dL [facility] 1 VLDL CALCULATION 40 5 - 40 mg/dL [facility] 1 LDL (CALCULATED) 100(H) 0 - 99 mg/dL [facility] 1 06/14/2021 8:00 AM CDT 06/14/2021 Narrative [facility] - 06/15/2021 8:17 AM CDT Performed at: ??01 - [facility] [address], [place], [place] ??[id number] Blade Worker: Pal Anderson PhD, Phone: ??[phone] Jaden Thakur DO LABORATORY Final Re sult Performing Organization Address [place] Co de Phone Number [facility] [address] [place] [address] [facility] 1 * TSH W/REFLEX (06/14/2021 8:00 AM CDT) Pathologist [facility] TSH 1.880 0.450 - 4.50 uIU/mL [facility] 1 06/14/2021 8:00 AM CDT 06/14/2021 Narrative [facility] - 06/15/2021 8:17 AM CDT Performed at: ??01 - [address] ??[id number] Blade Worker: Pal Anderson PhD, Phone: ??[phone] Jaden Thakur DO LABORATORY Final Re sult Performing Organization Address [place] de Phone Number [facility] [address] [place] [address] [facility] * (ABNORMAL) COMPREHENSIVE METABOLIC PANEL (06/14/2021 8:00 AM CDT) [facility] GLUCOSE 93 65 - 99 mg/dL [facility] 1 BUN 10 6 - 20 mg/dL [facility] 1 CREATININE S/P/B 0.84 0.57 - 1.00 mg/dL [facility] 1 GFR ESTIMATE 91 >59 mL/min/1.7 3 [facility] 1 BUN CREATININE RATIO 12 9 - 23 [facility] 1 SODIUM S/P/B 141 134 - 144 mmol/L [facility] 1 POTASSIUM S/P/B 4.9 3.5 - 5.2 mmol/L [facility] 1 CHLORIDE S/P/B 106 96 - 106 mmol/L [facility] 1 CO2 21 20 - 29 mmol/L [facility] 1 CALCIUM S/P/B 9.2 8.7 - 10.2 mg/dL [facility] 1 TOTAL PROTEIN S/P/B 6.9 6.0 - 8.5 g/dL [facility] 1 ALBUMIN S/P/B 3.9 3.8 - 4.8 g/dL [facility] 1 GLOBULIN 3.0 1.5 - 4.5 g/dL [facility] 1 A/G RATIO 1.3 1.2 - 2.2 [facility] 1 BILIRUBIN TOTAL S/P/B <0.2 0.0 - 1.2 mg/dL [facility] 1 ALKALINE PHOSPHATASE S/P/B 42(L) 44 - 121 IU/L [facility] 1 AST 10 0 - 40 IU/L [facility] 1 ALT 8 0 - 32 IU/L [facility] 1 06/14/2021 8:00 AM CDT 06/14/2021 Narrative [facility] - 06/15/2021 8:17 AM CDT Performed at: ??01 - [facility] ??[id number] Blade Worker: Pal Anderson PhD, Phone: ??[phone] Jaden Thakur DO LABORATORY Final Re sult [facility] [address] [place] [address] [facility] 1 * CBC W/DIFF AUTOMATED (06/14/2021 8:00 AM CDT) WBC 6.2 3.4 - 10.8 x10E3/uL [facility] 1 RBC 4.71 3.77 - 5.28 x10E6/uL [facility] 1 HGB 14.6 11.1 - 15.9 g/dL [facility] 1 HCT 45.1 34.0 - 46.6 % [facility] 1 MCV 96 79 - 97 fL [facility] 1 MCH 31.0 26.6 - 33.0 pg [facility] 1 MCHC 32.4 31.5 - 35.7 g/dL [facility] 1 RDW 12.3 11.7 - 15.4 % [facility] 1 PLATELET COUNT 342 150 - 450 x10E3/uL [facility] 1 NEUTROPHILS % 62 Not Estab. % [facility] 1 LYMPHOCYTES % 29 Not Estab. % [facility] 1 MONOCYTES % 7 Not Estab. % [facility] 1 EOSINOPHILS % 1 Not Estab. % [facility] 1 BASOPHILS % 1 Not Estab. % [facility] 1 ABS. NEUTROPHILS 3.9 1.4 - 7.0 x10E3/uL [facility] 1 ABS. LYMPHOCYTES 1.8 0.7 - 3.1 x10E3/uL [facility] 1 MONOCYTES 0.4 0.1 - 0.9 x10E3/uL [facility] 1 ABS. EOSINOPHILS 0.1 0.0 - 0.4 x10E3/uL [facility] 1 ABS. BASOPHILS 0.1 0.0 - 0.2 x10E3/uL [facility] 1 ABS. IMMATURE GRANULOCYTES 0 Not Estab. % [facility] 1 ABS. IMMATURE GRANULOCYTES 0.0 0.0 - 0.1 x10E3/uL [facility] 1 06/14/2021 8:00 AM CDT 06/14/2021 Narrative [facility] - 06/15/2021 8:17 AM CDT Performed at: ??01 - [facility] [address] ??[id number] Blade Worker: Pal Anderson PhD, Phone: ??[phone] Jaden Thakur DO LABORATORY Final Re sult [facility] [address] [place] [address] [facility] 1 documented in this encounter Visit Diagnoses Diagnosis Migraine without aura and without status migrainosus, not intractable- Primary Migraine without aura, without mention of intractable migraine without mention of status migrainosus Screening for lipid disorders Screening for endocrine, metabolic and immunity disorder Annual physical exam Routine general medical examination at a health care facility Vitamin D deficiency Unspecified vitamin D deficiency Screening for malignant neoplasm of colon BMI 31.0-31.9,adult Body Mass Index 31.0-31.9, adult documented in this encounter Additional Health Concerns Assessment Noted Time PHQ-9 Depression Total Score: 0 04/30/19 21 9: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
--- OUTSIDE RECORDS SUMMARY | 2024-03-19 20:51 | XMS_ITS | Encounter Summary ---
Author Organization [facility] Address [address] [place] [address]. 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 This patient is the patient who is also needing antibody titers. * Jaden Thakur DO - 10/29/2019 10:16 AM CDT Yes, IGG. * Jaden Thakur DO - 10/28/2019 12:14 PM CDT Also okay to order; I presume she is referring to titers. * Jaden Thakur DO - 10/20/2019 4:24 PM CDT OK to order. documented in this encounter Plan of Treatment Not on file documented as of this encounter Procedures Procedure Name Priority Date/Time Associated Diagnosis Comments MUMPS AB IGG Routine 11/06/2019 9:38 AM CDT Immunity status testing RUBEOLA IGG Routine 11/06/2019 9:38 AM CDT Immunity status testing RUBELLA IGG Routine 11/06/2019 9:38 AM CDT Immunity status testing QUANTIFERON-TB GOLD PLUS, 4T Routine 10/24/2019 9:59 AM CDT Screening-Pulmonary Tb documented in this encounter Results * RUBELLA IGG (11/06/2019 9:38 AM CDT) RUBELLA IGG AB 7.15 Immune >0. index [facility] 1 Comment: ?Non-immune ? <0.90 ?Equivocal ??0.90 - 0.99 ?Immune ? >0.99 11/06/2019 9:38 AM CDT 11/06/2019 Narrative [facility] - 11/07/2019 4:10 PM CDT Performed at: ??01 - [facility] [address], [place], [place] ??[id number] Director Personal: Pal Anderson PhD, Phone: ??[phone] us Jaden Thakur DO LABORATORY Final Re sult [facility] [address] [place] [address] [facility] * RUBEOLA IGG (11/06/2019 9:38 AM CDT) RUBEOLA IGG 89.1 Immune >16 AU/mL [facility] 1 Comment: ? Negative ?<13.5 ? Equivocal 13.5 - 16.4 ? Positive ?>16.4 Presence of antibodies to Rubeola is presumptive evidence of immunity except when acute infection is suspected. 11/06/2019 9:38 AM CDT 11/06/2019 Narrative [facility] - 11/07/2019 4:10 PM CDT Performed at: ??01 - [facility] ??[id number] Director Personal: Pal Anderson PhD, Phone: ??[phone] Jaden Thakur DO LABORATORY Final Re sult Performing Organization Address [facility] de Phone Number [facility] [address] [place] [address] [facility] 1 * MUMPS AB IGG (11/06/2019 9:38 AM CDT) [facility] MUMPS IGG AB 132.0 Immune >10 AU/mL [facility] 1 Comment: ?Negative ? <9.0 ?Equivocal ??9.0 - 10.9 ?Positive ?>10.9 A positive result generally indicates past exposure to Mumps virus or previous vaccination. 11/06/2019 9:38 AM CDT 11/06/2019 Narrative [facility] - 11/07/2019 4:10 PM CDT Performed at: ??01 - [facility] ??[id number] Director Personal: Pal Anderson PhD, Phone: ??[phone] Jaden Thakur DO LABORATORY Final Re sult Performing Organization Address [facility] de Phone Number [facility] [address] [place] [address] [facility] 1 * QUANTIFERON-TB GOLD PLUS, 4T (10/24/2019 9:59 AM CDT) TB QUANTIFERON(R)- INCUBATED Incubation performed. [facility] 1 TB QUANTIFERON Negative Negative [facility] 1 Comment: Performed at: ??01 - [facility] [address] ??[id number] Director Personal: Pal Anderson PhD, Phone: ??[phone] COMMENT Comment [facility] 1 Comment: The QuantiFERON-TB Gold Plus result is determined by subtracting the Nil value from either TB antigen (Ag) tube. The mitogen tube serves as a control for the test. TB1 AG MINUS NIL 0.01 IU/mL [facility] 1 TB2 AG MINUS NIL 0.01 IU/mL [facility] 1 TB ANTIGEN - NIL VALUE 0.01 IU/mL [facility] 1 MITOGEN NIL 7.76 IU/mL [facility] 1 10/24/2019 9:59 AM CDT 10/24/2019 Narrative [facility] - 10/28/2019 8:07 PM CDT Performed at: ??01 - [facility] [address] ??[id number] Director Personal: Pal Anderson PhD, Phone: ??[phone] Jaden Thakur DO LABORATORY Final Re sult [facility] [address] [place] [address] [facility] 1 documented in this encounter Visit Diagnoses Diagnosis Screening-pulmonary TB- Primary Screening examination for pulmonary tuberculosis Immunity status testing Antibody response examination documented in this encounter Care Teams Commissions Manager Relationship Specialty Start Date End Date Jaden Thakur DO [address] [place] [address] PCP - General FAMILY PRACTICE 04/10/19 documented as of this encounter
--- OUTSIDE RECORDS SUMMARY | 2024-03-19 20:51 | XMS_ITS | Encounter Summary ---
Author Organization [facility] Address [address] [place] 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 No / Unsure 09/22/2021 10:40 AM CDT documented as of this encounter Last Filed Vital Signs Vital Sign Reading Time Taken Comments Blood Pressure 114/78 09/22/2021 11:01 AM CDT Pulse 93 09/22/2021 11:01 AM CDT Temperature 36.8 ??C (98.3 ??F) 09/22/2021 1 1:01 AM CDT Respiratory Rate 16 09/22/2021 11:0 1 AM CDT Oxygen Saturation 96% 09/22/2021 11: 01 AM CDT Inhaled Oxygen Concentration - - Weight 86.6 kg (190 lb 14.4 oz) 022 11:01 AM CDT Height 162.6 cm (5' 4 ) 09/22/2021 11:0 1 AM CDT Body Mass Index 32.77 09/22/2021 11:01 AM CDT documented in this encounter Progress Notes * Jaden Thakur, DO - 09/22/2021 11:00 AM CDT Images from the original note were not included. GENERAL OFFICE VISIT Encounter Date: 09/22/21 Chief Complaint: 40-year-old female presents for Medication Check HPI: Pt presents for follow-up. We started pt on rizatriptan and amitriptyline at last OV. Pt initially didn't notice any improvement, but within in the past 3 weeks she has noticed significant improvement. She had to use rizatriptan once for a severe migraine, which it did help. No other notable issues. Review of Systems Constitutional: Negative for fever. Neurological: See HPI Patient Active Problem List Diagnosis ??? GERD [...] Cigarettes Quit date: 03/12/2015 Years since quittin.5 ??? Smokeless tobacco: Never Used Substance and [...] File Prior to Visit Medication Sig ??? amitriptyline 25 MG tablet Take 1 tablet (25 mg total) by mouth nightly at bedtime. ??? Cetirizine HCl 10 MG TABLET DISPERSIBLE Take 10 mg by mouth daily. ??? Cholecalciferol (VITAMIN D3) 50 MCG (2000 UT) Tab Take by mouth daily. ??? levonorgestrel-ethinyl estradiol 0.1-20 MG-MCG tablet TAKE 1 TABLET BY MOUTH ONCE DAILY ??? omeprazole 20 MG capsule Take 1 capsule (20 mg total) by mouth daily. ??? rizatriptan 5 MG tablet Take 1 tablet (5 mg total) by mouth as needed for Migraine. May repeat in 2 hours if needed times one dose No current facility-administered medications on file prior to visit. Allergies Allergen Reactions ??? Latex Rash Objective: Filed Vitals: 09/22/21 1101 BP: 114/78 Pulse: 93 Resp: 16 Temp: 98.3 ??F (36.8 ??C) TempSrc: Skin SpO2: 96% Weight: 86.6 kg (190 lb 14.4 oz) Height: 5' 4 (1.626 m) Physical [...] breath sounds. No wheezing or rales. Neurological: General: No focal deficit present. Mental Status: She is alert. Assessment & Plan: Consuelo was seen today for medication check . Diagnoses and all orders for this visit: Migraine without aura and without status migrainosus, not intractable Discussion/Summary: Continue current medications as prescribed for migraines; symptoms are now stable and manageable with medications. F/u in 1 year or sooner if needed. Jaden hTakur DO documented in this encounter Plan of Treatment Not on file documented as of this encounter Visit Diagnoses Diagnosis Migraine without aura and without status migrainosus, not intractable- Primary Migraine without aura, without mention of intractable migraine without mention of status migrainosus documented in this encounter Additional Health Concerns Assessment Noted Time PHQ-9 Depression Total Score: 0 04/30/19 21 9:32 AM COMMUNITY ORGANIZATION WORKER documented as of this encounter Care Teams Reporting Analyst Relationship Specialty Start Date End Date Jaden Thakur DO [address] [place] [address] PCP - General FAMILY PRACTICE 04/10/19 documented as of this encounter
--- OUTSIDE RECORDS SUMMARY | 2024-03-19 20:51 | XMS_ITS | Encounter Summary ---
Author Organization [facility] Address [address] [place] [address]. [place], [place] [id number] [place] [address] Care Team Providers Care Tool Coordinator Name Role Phone Jaden Thakur Primary Care Provider + Encounter Details Date Type Department Care Team (Latest Contact Info) Description 06/14/2021 Travel Social History Tobacco Use Types Packs/Day [...] on file Legal Sex Female 2:33 PM ADMINISTRATION CLERK Gender Identity Not on file Sexual [...] Total Score: 0 04/30/19 21 9:32 AM ADMINISTRATION CLERK documented as of this encounter Care Teams Tool Coordinator Relationship Specialty Start Date End Date Jaden Thakur DO [address] [place] [address] PCP - General FAMILY PRACTICE 04/10/19 documented as of this encounter
--- OUTSIDE RECORDS SUMMARY | 2024-03-19 20:51 | XMS_ITS | Encounter Summary ---
Author Organization [facility] Address [address] [place] [address]. [place], [place] [id number] [place] [address] Care Team Providers Care Block Sorter Name Role Phone Jaden Thakur DO Primary Care Provider + Reason for Visit * Reason Comments Annual Encounter Details Date Type Department Care Team (Late st Contact Info) Description 04/30/2020 9:20 AM ROD BUSTER Office Visit [facility] Medical Group Family & Internal Medicine [id number] [place] [address] Jaden Thakur DO 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 No / Unsure 04/30/2020 9:08 AM ROD BUSTER documented as of this encounter Last Filed Vital Signs Vital Sign Reading Time Taken Comments Blood Pressure 98/66 04/30/2020 9:26 AM ROD BUSTER Pulse 95 04/30/2020 9:26 AM ROD BUSTER Temperature 36.5 ??C (97.7 ??F) 04/30/2020 9:26 AM CS T Respiratory Rate 16 04/30/2020 9:26 AM ROD BUSTER Oxygen Saturation 98% 04/30/2020 9:26 AM ROD BUSTER Inhaled Oxygen Concentration - - Weight 78.9 kg (174 lb) 04/30/2020 9:26 AM ROD BUSTER Height 162.6 cm (5' 4 ) 04/30/2020 9:26 AM ROD BUSTER Body Mass Index 29.87 04/30/2020 9:26 AM ROD BUSTER documented in this encounter Progress Notes * Jaden Thakur, DO - 04/30/2020 9:20 AM CST Images from the original note were not included. GENERAL OFFICE VISIT Encounter Date: 04/30/2020 Chief Complaint: 39-year-old female presents for Annual . The patient is being seen for a health maintenance evaluation. Last maintenance visit was 2019. General Health: Good Dental Health: Rare dental visits Vision Health: Wears contacts Hearing Health: No hearing problems Immunizations Needed: UTD Weight: Obese Body mass index is 29.87 kg/m??. Physical Activity: Excercises occaisonally Cervical Cancer Screening: Sees Dr. Sher Breast Cancer Screening: Not indicated Colorectal Cancer Screening: Pt had colonoscopy in 2011, recommended 10 years from then Metabolic Screening: Patient has been screened previously within the past year. HCV Screening: Patient does not meet criteria for screening PHQ-9 Screening Score: 0 Smoking Status: History Smoking Status ??? Former Smoker ??? Packs/day: 0.50 ??? Years: 10.00 ??? Types: Cigarettes ??? Quit date: 2015 Smokeless Tobacco ??? Never Used Patient does not meet criteria for Low Dose CT screening Sleep Apnea Risk Factors: None Pt needs refill of omeprazole today. Review of Systems Constitutional: Negative for fever. HENT: Negative for hearing loss. Eyes: Negative for blurred vision. Respiratory: Negative for shortness of breath. Cardiovascular: [...] on file Occupational History ??? 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 Financial resource strain: Not on file ??? Food insecurity Worry: Not on file Inability: Not on file ??? Transportation needs Medical: Not on file Non-medical: Not on file Tobacco Use ??? Smoking status: Former Smoker Packs/day: 0.50 Years: 10.00 Pack years: 5.00 Types: Cigarettes Quit date: 2016 Years since quittin.1 ??? Smokeless tobacco: Never Used Substance and Sexual Activity ??? Alcohol use: Yes Frequency: Monthly or less Drinks per session: 1 or 2 Binge frequency: Never ??? Drug use: Never ??? Sexual activity: Not on file Lifestyle ??? Physical activity Days per week: Not on file Minutes per session: Not on file ??? Stress: Not on file Relationships ??? Social connections Talks on phone: Not on file Gets together: Not on file Attends restorationist service: Not on file Active member of club or organization: Not on file Attends meetings of clubs or organizations: Not on file Relationship status: Not on file ??? Intimate partner violence Fear of current or ex partner: Not on file Emotionally abused: Not on file Physically abused: Not on file Forced sexual activity: Not on file Other Topics Concern ??? Not on file Social History Narrative ??? Not on file Immunization History Administered Date(s) Administered ??? Influenza 12/11/2015, 12/13/2018 ??? Influenza Adult (Generic) 01/06/2013, 12/15/2019 ??? PFIZER COVID-19, MRNA, LNP-S, PF, 30 MCG/0.3 ML DOSE 03/03/2020, 03/25/2020 ??? Tdap (Generic) 12/21/2015 Current Outpatient Medications Medication Sig Dispense Refill ??? Cetirizine HCl 10 MG TABLET DISPERSIBLE Take 10 mg by mouth daily. ??? Cholecalciferol (VITAMIN D3) 50 MCG (2000 UT) Tab Take by mouth daily. ??? levonorgestrel-ethinyl estradiol 0.1-20 MG-MCG tablet TAKE 1 TABLET BY MOUTH ONCE DAILY ??? omeprazole 20 MG capsule Take 1 capsule (20 mg total) by mouth daily. 90 capsule 3 No current facility-administered medications for this visit. Current Outpatient Medications on File Prior to Visit Medication Sig ??? Cetirizine HCl 10 MG TABLET DISPERSIBLE Take 10 mg by mouth daily. ??? Cholecalciferol (VITAMIN D3) 50 MCG (1999 UT) Tab Take by mouth daily. ??? levonorgestrel-ethinyl estradiol 0.1-20 MG-MCG tablet TAKE 1 TABLET BY MOUTH ONCE DAILY No current facility-administered medications on file prior to visit. Allergies Allergen Reactions ??? Latex Rash Objective: Filed Vitals: 04/30/20 0926 BP: 98/66 Pulse: 95 Resp: 16 Temp: 97.7 ??F (36.5 ??C) TempSrc: Skin SpO2: 98% Weight: 78.9 kg (174 lb) Height: 5' 4 (1.626 m) Physical Exam Constitutional: She is oriented to person, place, and time and well-developed, well-nourished, and in no distress. No distress. HENT: Head: Normocephalic and atraumatic. Right Ear: Tympanic membrane, external ear and ear canal normal. Left Ear: Tympanic membrane, external ear and ear canal normal. Mouth/Throat: No oropharyngeal exudate. Eyes: Conjunctivae are normal. Neck: Neck supple. Cardiovascular: Normal rate, regular rhythm and normal heart sounds. Exam reveals no gallop and no friction rub. No murmur heard. Pulmonary/Chest: Effort normal and breath sounds normal. No respiratory distress. She has no wheezes. She has no rales. Abdominal: Soft. Bowel sounds are normal. There is no abdominal tenderness. Musculoskeletal: General: No edema. Lymphadenopathy: She has no cervical adenopathy. Neurological: She is alert and oriented to person, place, and time. Gait normal. Skin: Skin is warm and dry. No rash noted. Psychiatric: Affect normal. Nursing note and vitals reviewed. Assessment & Plan: Consuelo was seen today for annual. Diagnoses and all orders for this visit: Encounter for preventative adult health care examination BMI 29.0-29.9,adult Gastroesophageal reflux disease, unspecified whether esophagitis present - omeprazole 20 MG capsule; Take 1 capsule (20 mg total) by mouth daily. Discussion/Summary: No acute symptoms today. Expected and preventative management discussed, including diet, exercise, screening tests, and labs. Refilled omeprazole today. Will have pt obtain labs at next visit. Will have pt f/u in 1 year unless needed sooner. Pt v/u. Jaden Thakur DO BUSTER documented in this encounter Plan of Treatment Not on file documented as of this encounter Visit Diagnoses Diagnosis Encounter for preventative adult health care examination- Primary BMI 29.0-29.9,adult Body Mass Index 29.0-29.9, adult Gastroesophageal reflux disease, unspecified whether esophagitis present documented in this encounter Additional Health Concerns Assessment Noted Time PHQ-9 Depression Total Score: 0 04/30/19 21 9:32 AM ROD BUSTER documented as of this encounter Care Teams Block Sorter Relationship Specialty Start Date End Date Jaden Thakur DO [address] [place] [address] PCP - General FAMILY PRACTICE 04/10/19 documented as of this encounter
--- OUTSIDE RECORDS SUMMARY | 2024-03-19 20:51 | XMS_ITS | Encounter Summary ---
Author Organization [facility] Address [address] [place] [address]. 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 No / Unsure 06/12/2021 4:00 PM CDT documented as of this encounter Plan of Treatment Not on file documented as of this encounter Visit Diagnoses Not on filedocumented in this encounter Additional Health Concerns Assessment Noted Time PHQ-9 Depression Total Score: 0 04/30/19 21 9:32 AM BOBBIN DRIER documented as of this encounter Care Teams Medical Office Scheduler Relationship Specialty Start Date End Date Jaden Thakur DO [address] [place] [address] PCP - General FAMILY PRACTICE 04/10/19 documented as of this encounter
--- OUTSIDE RECORDS SUMMARY | 2024-03-19 20:51 | XMS_ITS | Encounter Summary ---
Author Organization [facility] Address [address] [place] [address]. 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
--- OUTSIDE RECORDS SUMMARY | 2024-03-19 20:51 | XMS_ITS | Encounter Summary ---
Author Organization [facility] Address [address] [place] [address]. [place], [place] [phone] [place] [address] Care Team Providers Care Upkeep Mechanic Name Role Phone Jaden Thakur DO Primary Care Provider + Encounter Details Date Type Department Care Team (Late st Contact Info) Description 12/21/2019 [employer] Message Enc [facility] Medical Group Family & Internal Medicine [facility] [address] [place] [address] Jaden Thakur DO [address] [place] [address] RE: Question Social History Tobacco Use Types Packs/Day Years Used Date Smoking Tobacco: Former Cigarettes 0.5 2015 Smokeless Tobacco: Never Alcohol Use Standard [...] file Legal Sex Female 2:33 PM BELT BUCKLE MAKER Gender Identity Not on file Sexual Orientation Not on file 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 * Jaden Thakur DO - 12/22/2019 3:38 PM CDT That's fine; can do diflucan 150 mg 1 tab once, then repeat in 72 hours. documented in this encounter Plan of Treatment Not on file documented as of this encounter Visit Diagnoses Diagnosis Yeast infection- Primary Other and unspecified mycoses documented in this encounter Care Teams Upkeep Mechanic Relationship Specialty Start Date End Date Jaden Thakur DO [address] [place] [address] PCP - General FAMILY PRACTICE 04/10/19 documented as of this encounter
--- OUTSIDE RECORDS SUMMARY | 2024-03-19 20:51 | XMS_ITS | Encounter Summary ---
Author Organization [facility] Address [address] [place] [address]. [place], [place] [id number] [place] [address] Care Team Providers Care Almond Pan Finisher Name Role Phone Jaden Thakur DO Primary Care Provider + Reason for Visit * Reason Onset Date Comments Lab Results 11/13/2019 Encounter Details Date Type Department Care Team (Late st Contact Info) Description 11/13/2019 Telephone [facility] Medical Group Family & Internal Medicine [facility] [address] [place] [address] Jaden Thakur DO [address] [place] [address] Lab Results Social History Tobacco Use Types Packs/Day [...] on file 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 * Larisa Reardon RN - 11/13/2019 4:13 PM CDT ----- Message from Jaden Thakur DO sent at 11/12/2019 8:14 PM CDT ----- Pt's glucose was mildly elevated with an [...] on filedocumented in this encounter Care Teams Almond Pan Finisher Relationship Specialty Start Date End Date Jaden Thakur DO [address] [place] [address] PCP - General FAMILY PRACTICE 04/10/19 documented as of this encounter
--- OUTSIDE RECORDS SUMMARY | 2024-03-19 20:51 | XMS_ITS | Encounter Summary ---
Author Organization [facility] Address [address] [place] [address]. [address] [address] Care Team Providers Care Fruit Or Nut Farm Worker Name Role Phone Jaden Thakur DO Primary Care Provider + Reason for Visit * Reason Comments Establish Care Encounter Details Date Type Department Care Team (Late st Contact Info) Description 04/10/2019 9:00 AM BREAD PANNER Office Visit [facility] Medical Group Family & Internal Medicine [id number] [place] [address] [address] 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 file documented as of this encounter Last Filed Vital Signs Vital Sign Reading Time Taken Comments Blood Pressure 118/80 04/10/2019 9:04 AM BREAD PANNER Pulse 105 04/10/2019 9:04 AM BREAD PANNER Temperature 36.8 ??C (98.3 ??F) 04/10/2019 9:04 AM CS T Respiratory Rate 15 04/10/2019 9:04 AM BREAD PANNER Oxygen Saturation 95% 04/10/2019 9:04 AM BREAD PANNER Inhaled Oxygen Concentration - - Weight 81.9 kg (180 lb 8 oz) 04/10/2019 9:04 AM BREAD PANNER Height 162.6 cm (5' 4 ) 04/10/2019 9:04 AM BREAD PANNER Body Mass Index 30.98 04/10/2019 9:04 AM BREAD PANNER documented in this encounter Progress Notes * Lulu Driver CMA - 04/10/2019 9:00 AM CSTAddended by: LULU DRIVER on: 04/11/2019 12:00 PM Modules accepted: Orders D PANNER * Jaden Thakur DO - 04/10/2019 9:00 AM CST Images from the original note were not included. GENERAL OFFICE VISIT Encounter Date: 04/10/2019 Chief Complaint: 38-year-old female presents for Establish Care . The patient is being seen for a health maintenance evaluation. This is the patient's first visit. General Health: Good Dental Health: Rare dental visits Vision Health: Wears contacts Hearing Health: No hearing problems Immunizations Needed: UTD Weight: Obese Body mass index is 30.98 kg/m??. Physical Activity: Excercises occaisonally Cervical Cancer Screening: Sees Dr. Sher Breast Cancer Screening: Not indicated Colorectal Cancer Screening: Pt had colonoscopy in 2011, recommended 10 years from then Metabolic Screening: Patient has not been screened [...] Sleep Apnea Risk Factors: None Pt has seasonal allergies. She takes zyrtec as needed for this. Pt has hx of GERD. Pt had an EGD in 2011. She is on omeprazole 20 mg daily. She took pepcid in the past and didn't work after . Review of Systems Constitutional: Negative for fever. HENT: Negative for hearing loss. Eyes: Negative for blurred vision. Respiratory: Negative for shortness of breath. Cardiovascular: Negative for chest pain. Gastrointestinal: See HPI Genitourinary: Negative for dysuria. Skin: Negative for rash. Psychiatric/Behavioral: Negative for depression. Patient Active Problem List Diagnosis ??? GERD (gastroesophageal reflux disease) ??? BMI 30.0-30.9,adult ??? Seasonal allergies Past Medical History: Diagnosis Date ??? Allergy [...] Years: 10.00 Pack years: 5.00 Types: Cigarettes Last attempt to quit: 2016 Years since quittin.0 ??? Smokeless tobacco: Never Used Substance and Sexual Activity ??? Alcohol use: Yes Frequency: Monthly or less Drinks per session: 1 or 2 Binge frequency: Never ??? Drug use: Never ??? Sexual activity: Not on file Lifestyle ??? Physical activity: Days per week: Not on file Minutes per session: Not on file ??? Stress: Not on file Relationships ??? Social connections: Talks on phone: Not on file Gets together: Not on file Attends scientology service: Not on file Active member of [...] Influenza 12/11/2015, 12/13/2018 ??? Influenza Adult (Generic) 01/06/2013 ??? Tdap (Generic) 12/21/2015 Current Outpatient Medications Medication Sig Dispense Refill ??? Cetirizine HCl 10 MG TABLET DISPERSIBLE Take 10 mg by mouth daily. ??? levonorgestrel-ethinyl estradiol 0.1-20 [...] Take 10 mg by mouth daily. ??? levonorgestrel-ethinyl estradiol 0.1-20 MG-MCG tablet TAKE 1 TABLET BY MOUTH ONCE DAILY No current facility-administered medications on file prior to visit. Allergies Allergen Reactions ??? Latex Rash Objective: Filed Vitals: 04/10/19 0904 BP: 118/80 Pulse: 105 Resp: 15 Temp: 98.3 ??F (36.8 ??C) SpO2: 95% Weight: 81.9 kg (180 lb 8 oz) Height: 5' 4 (1.626 m) Physical [...] Bowel sounds are normal. There is no tenderness. Musculoskeletal: She exhibits no edema. Lymphadenopathy: She has no cervical adenopathy. Neurological: She is alert and oriented to person, place, and time. Gait normal. Skin: Skin is warm and dry. No rash noted. Psychiatric: Affect normal. Nursing note and vitals reviewed. Assessment & Plan: Consuelo was seen today for establish care. Diagnoses and all orders for this visit: Encounter to establish care with new doctor - CBC W/DIFF AUTOMATED; Future - COMPREHENSIVE METABOLIC PANEL; Future - TSH W/REFLEX; Future - VITAMIN D, 25 OH; Future - CBC W/DIFF AUTOMATED - COMPREHENSIVE METABOLIC PANEL - TSH W/REFLEX - VITAMIN D, 25 OH Gastroesophageal reflux disease, esophagitis presence not specified - omeprazole 20 MG capsule; Take 1 capsule (20 mg total) by mouth daily. Seasonal allergies BMI 30.0-30.9,adult Screening for endocrine, metabolic and immunity disorder - CBC W/DIFF AUTOMATED; Future - COMPREHENSIVE METABOLIC PANEL; Future - TSH W/REFLEX; Future - VITAMIN D, 25 OH; Future - CBC W/DIFF AUTOMATED - COMPREHENSIVE METABOLIC PANEL - TSH W/REFLEX - VITAMIN D, 25 OH Discussion/Summary: No acute symptoms today. Will order labs as per above. Expected and preventative management discussed, including diet and exercise (she has lost about 10 lbs intentionally over the past month; encouraged her to continue to do so). Continue omeprazole. Will have pt f/u in 1 year unless needed sooner. Pt v/u. Jaden Thakur DO D PANNER documented in this encounter Plan of Treatment Not on file documented as of this encounter Visit Diagnoses Diagnosis Encounter to establish care with new doctor- Primary Other reasons for seeking consultation Gastroesophageal reflux disease, esophagitis presence not specified Seasonal allergies Allergic rhinitis, cause unspecified BMI 30.0-30.9,adult Body Mass Index 30.0-30.9, adult Screening for endocrine, metabolic and immunity disorder documented in this encounter Care Teams Fruit Or Nut Farm Worker Relationship Specialty Start Date End Date Jaden Thakur DO [address] [place] [address] PCP - General FAMILY PRACTICE 04/10/19 documented as of this encounter
--- OUTSIDE RECORDS SUMMARY | 2024-03-19 20:51 | XMS_ITS | Encounter Summary ---
Author Organization [facility] Address [address] [place] [address]. 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 No / Unsure 04/30/2020 9:08 AM STROBOROMA OPERATOR documented as of this encounter Plan of Treatment Not on file documented as of this encounter Visit Diagnoses Not on filedocumented in this encounter Additional Health Concerns Assessment Noted Time PHQ-9 Depression Total Score: 0 04/30/19 21 9:32 AM STROBOROMA OPERATOR documented as of this encounter Care Teams Set Making Machine Operator Relationship Specialty Start Date End Date Jaden Thakur DO [address] [place] [address] PCP - General FAMILY PRACTICE 04/10/19 documented as of this encounter
--- OUTSIDE RECORDS SUMMARY | 2024-03-19 20:51 | XMS_ITS | Encounter Summary ---
Author Organization [facility] Address [address] [place] [address]. 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 No / Unsure 04/28/2020 4:56 PM GARBAGE WORKER documented as of this encounter Plan of Treatment Not on file documented as of this encounter Visit Diagnoses Not on filedocumented in this encounter Care Teams Surgery Manager Relationship Specialty Start Date End Date Jaden Thakur DO [address] [place] [address] PCP - General FAMILY PRACTICE 04/10/19 documented as of this encounter
--- OUTSIDE RECORDS SUMMARY | 2024-03-19 20:51 | XMS_ITS | Encounter Summary ---
Author Organization [facility] Address [address] [place] [address]. [address] [address] Care Team Providers Care Pyrometer Operator Name Role Phone Jaden Thakur DO Primary Care Provider + Reason for Visit * Reason Onset Date Comments Lab Results 10/29/2019 Encounter Details Date Type Department Care Team (Late st Contact Info) Description 10/29/2019 Telephone [facility] Medical Group Family & Internal Medicine [facility] [address] [place] [address] Jaden Thakur DO [address] [place] [address] Lab Results Social History Tobacco [...] on file Legal Sex Female 2:33 PM GARDENER Gender Identity Not on file Sexual Orientation Not on file 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 This patient is the patient who is also needing antibody titers. documented in this encounter Plan of Treatment Not on file documented as of this encounter Visit Diagnoses Not on filedocumented in this encounter Care Teams Pyrometer Operator Relationship Specialty Start Date End Date Jaden Thakur DO [address] [place] [address] PCP - General FAMILY PRACTICE 04/10/19 documented as of this encounter
--- OUTSIDE RECORDS SUMMARY | 2024-03-19 20:52 | XMS_ITS | Encounter Summary ---
Author Organization [facility] Healthcare Address [address] [place] [address] Care Team Providers Care Lunchroom Attendant Name Role Phone Jaden Thakur Primary Care Provide r Reason for Visit * MRI/CAT/PET Scan (Routine) - Closed Specialty Diagnoses / Procedures Referred By Contac t Referred To Contact Procedures Neuro CT Outside Reference Sly Morrison MD [address] [facility] [address] [place] [address] Phone: tel: fax: Referral ID Status Reason Start Date Expiration Date Visits Re quested Visits Authorized [id number] Closed 12/13/2023 01/11/2025 1 1 Encounter Details Date Type Department Care Team (Latest Contact Info) Description 12/13/2023 1:55 PM CDT - 12/13/2023 11:59 PM CDT Hospital Encounter [facility] [address] [place] [address] Discharge Disposition: Discharge to home or self care Social History Tobacco Use Types Packs/Day Years Used Date Smoking Tobacco: Former Cigarettes Smokeless Tobacco: Never AUDIT-C Answer Date Recorded Q1: How often do you have a drink containing alcohol? Never 12/03/2023 Q2: How many drinks containi ng alcohol do you have on a typical day when you are drinking? Patient does not drink Frequency of Binge Drinking Not on file 11/11 Personal Safety Answer Date Recorded Have you ever been in or are you currently in a harmful physical or emotional relationship or is someone making you feel afraid or unsafe? Denies 12/03/2023 Comments Unknown Sex and Gender Information Value Date Recorded Sex Assigned at Not on file Legal Sex Female 10:05 AM RN POOL Gender Identity Not on file Sexual Orientation Not on file documented as of this encounter Medications at Time of Discharge busPIRone (BUSPAR) 5 mg tablet Take 1 tablet (5 mg total) by mouth 2 (two) times a day 06/29/2023 cetirizine 10 mg tablet,disintegrat ing Take 10 mg by mouth nightly cholecalciferol 25 mcg (1,000 unit) tablet 2 tablets (2,000 Units total) daily 12/14/2022 cyclobenzaprine (FLEXERIL) 5 mg tablet Take 1 tablet (5 mg total) by mouth 3 (three) times a day 12/14/[address] (CYMBALTA) 60 mg capsule Take 1 capsule (60 mg total) by mouth daily 02/15/2023 HYDROcodone-acetam inophen (NORCO) 10-325 mg per tablet Take 1 tablet by mouth every 6 (six) hours as needed 06/12/2023 hydrOXYzine (ATARAX) 25 mg tablet Take 1 tablet (25 mg total) by mouth every 8 (eight) hours as needed 09/26/2023 levETIRAcetam (KEPPRA) 1,000 mg tablet Take 1.5 tablets (1,500 mg total) by mouth 2 (two) times a day 270 tablet 1 10/21/2023 metoprolol tartrate (LOPRESSOR) 25 mg immediate release tablet Take 1 tablet (25 mg total) by mouth 2 (two) times a day 12/14/[address] (PROTONIX) 40 mg EC tablet Take 1 tablet (40 mg total) by mouth daily 03/21/2023 polyethylene glycol (MIRALAX) 17 gram packet 1 packet (17 g total) 2 (two) times a day as needed 12/14/2022 ubrogepant (UBRELVY) 100 mg tablet Take 1 tablet (100 mg total) by mouth 2 (two) times a day as needed 11/21/2023 LORazepam (ATIVAN) 0.5 mg tabletIndications: seizure Take 1 tablet (0.5 mg total) by mouth 2 (two) times a day for 5 doses 5 tablet 10/21/2023 aspirin 325 mg tablet Take 81 mg by mouth daily 4 baclofen (LIORESAL) 5 mg tablet Take 2 tablets (10 mg total) by mouth daily 12/14/2022 4 betamethasone dipropionate (DEL-BETA) 0.05 % cream Apply topically 2 (two) times a day 11/13/2023 5 fluconazole (Diflucan) 150 mg tablet 1 tablet, one time only, may repeat once after 4 days 2 tablet 12/10/2023 4 hydrOXYzine (VISTARIL) 25 mg capsule Take 1 capsule (25 mg total) by mouth 3 (three) times a day as needed for itching 4 metaxalone (SKELAXIN) 800 mg tablet 11/14/2023 5 verapamil SR (CALAN SR) 120 mg CR tablet Take 1 tablet (120 mg total) by mouth nightly 4 documented as of this encounter Discharge Disposition Disposition Code Departure Means Destination Discharge to home or self care documented in this encounter Plan of Treatment Not on file documented as of this encounter Procedures Procedure Name Priority Date/Time Associated Diagnosis Comments NEURO CT OUTSIDE REFERENCE Routine 12/13/2023 1:55 PM CDT documented in this encounter Results * Neuro CT Outside Reference (12/13/2023 1:55 PM CDT) Impressions [facility] - 12/13/2023 1:55 PM CDT These images are for Reference purposes only and have not been reviewed by [facility] Radiology. ??There will be no report generated by a [facility] Radiologist. Narrative [facility] - 12/13/2023 1:55 PM CDT EXAMINATION: ??Images For Reference Purposes Only us Sly Morrison MD IMG CT PROCEDURES Final Re sult RAD_PACS_[facility] documented in this encounter Visit Diagnoses Not on filedocumented in this encounter Care Teams Lunchroom Attendant Relationship Specialty Start Date End Date Jaden Thakur DO [address] [place] [address] PCP - General Family Medicine 06/01/23 documented as of this encounter
--- OUTSIDE RECORDS SUMMARY | 2024-03-19 20:52 | XMS_ITS | Encounter Summary ---
Author Organization [facility] Healthcare Address [address] [place] [address] Care Team Providers Care Office Agent Name Role Phone Jaden Thakur Primary Care Provide r Reason for Visit * MRI/CAT/PET Scan (Routine) - Closed Specialty Diagnoses / Procedures Referred By Contac t Referred To Contact Procedures Neuro CT Outside Reference Sly Morrison MD [address] [facility] [address] [place] [address] Phone: tel: fax: Referral ID Status Reason Start Date Expiration Date Visits Re quested Visits Authorized [id number] Closed 12/13/2023 01/11/2025 1 1 Encounter Details Date Type Department Care Team (Latest Contact Info) Description 12/13/2023 2:02 PM CDT - 12/13/2023 11:59 PM CDT Hospital Encounter [facility] [address] [place] [address] Discharge Disposition: Discharge to home or self [...] on file Legal Sex Female 10:05 AM SPLICING SUPERVISOR Gender Identity Not on file Sexual [...] Comments NEURO CT OUTSIDE REFERENCE Routine 12/13/2023 2:02 PM CDT documented in this encounter Results * Neuro CT Outside Reference (12/13/2023 2:02 PM CDT) Impressions [facility] - 12/13/2023 2:02 PM CDT These images are for Reference purposes only and have not been reviewed by [facility] Radiology. ??There will be no report generated by a [facility] Radiologist. Narrative [facility] - 12/13/2023 2:02 PM CDT EXAMINATION: ??Images For Reference Purposes Only us Sly Morrison MD IMG CT PROCEDURES Final Re sult [facility] documented in this encounter Visit Diagnoses Not on filedocumented in this encounter Care Teams Office Agent Relationship Specialty Start Date End Date Jaden Thakur DO [address] [place] [address] PCP - General Family Medicine 06/01/23 documented as of this encounter
--- OUTSIDE RECORDS SUMMARY | 2024-03-19 20:52 | XMS_ITS | Encounter Summary ---
Author Organization [facility] Healthcare Address [address] [place] [address] Care Team Providers Care Vault Person Name Role Phone Jaden Thakur Primary Care Provide r Reason for Visit * MRI/CAT/PET Scan (Routine) - Closed Specialty Diagnoses / Procedures Referred By Contac t Referred To Contact Procedures Neuro CT Outside Reference Sly Morrison MD [address] [facility] [address] [place] [address] Phone: tel: fax: Referral ID Status Reason Start Date Expiration Date Visits Re quested Visits Authorized [id number] Closed 12/13/2023 01/11/2025 1 1 Encounter Details Date Type Department Care Team (Latest Contact Info) Description 12/13/2023 2:12 PM CDT - 12/13/2023 11:59 PM CDT Hospital Encounter [facility] Radiology [facility] [address] [place] [address] Discharge Disposition: Discharge to home or self [...] on file Legal Sex Female 10:05 AM ANALYTICS DIRECTOR Gender Identity Not on file Sexual [...] Comments NEURO CT OUTSIDE REFERENCE Routine 12/13/2023 2:12 PM CDT documented in this encounter Results * Neuro CT Outside Reference (12/13/2023 2:12 PM CDT) Impressions [facility] - 12/13/2023 2:12 PM CDT These images are for Reference purposes only and have not been reviewed by [facility] Radiology. ??There will be no report generated by a [facility] Radiologist. Narrative [facility] - 12/13/2023 2:12 PM CDT EXAMINATION: ??Images For Reference Purposes Only us Sly Morrison MD IMG CT PROCEDURES Final Re sult RAD_PACS_[facility] documented in this encounter Visit Diagnoses Not on filedocumented in this encounter Care Teams Vault Person Relationship Specialty Start Date End Date Jaden Thakur DO [address] [place] [address] PCP - General Family Medicine 06/01/23 documented as of this encounter
--- OUTSIDE RECORDS SUMMARY | 2024-03-19 20:52 | XMS_ITS | Encounter Summary ---
Author Organization [facility] Healthcare Address [address] [place] [address] Care Team Providers Care Die Casting Supervisor Name Role Phone Jaden Thakur DO Primary Care Provide r Reason for Visit * Reason Comments UTI Entered automaticall y based on patient selection in [place]. Encounter Details Date Type Department Care Team (Late st Contact Info) Description 01/07/2024 1:50 PM CDT E-Visit [facility] Medical Group Virtual Care [address] [place] [phone] Oksana Wills NP [address] [place] [address] Your Medications Social History Tobacco Use Types Packs/Day Years Used Date Smoking Tobacco: Former Cigarettes Passive Smoke Exposure: Past Smokeless Tobacco: Never AUDIT-C Answer Date Recorded Q1: How often do you have a drink containing alcohol? Never 01/01/2024 Q2: How many drinks containi ng alcohol do you have on a typical day when you are drinking? Patient does not drink Q3: How often do you have si x or more drinks on one occasion? Never 01/01/2024 Personal Safety Answer Date Recorded Have you ever been in or are you currently in a harmful physical or emotional relationship or is someone making you feel afraid or unsafe? Denies 12/03/2023 Comments Unknown Sex and Gender Information Value Date Recorded Sex Assigned at Not on file Legal Sex Female 10:05 AM TRACE CLERK Gender Identity Not on file Sexual Orientation Not on file documented as of this encounter Ordered Prescriptions Prescription Sig Dispense Quantity Refills Last Filled Start Date End Date fluconazole (DIFLUCAN) 150 mg tabletIndications: Urinary symptom or sign Take 1 tablet (150 mg total) by mouth once for 1 dose 1 tablet 01/07/2024 cephalexin (KEFLEX) 500 mg capsuleIndications :Urinary symptom or sign Take 1 capsule (500 mg total) by mouth 2 (two) times a day for 5 days 10 capsule 01/07/2024 4 documented in this encounter Miscellaneous Notes * E-Visit Note - Oksana Wills, MARLI - 01/07/2024 1:53 PM CDT Consuelo Jimenez 01/07/2024 E-Visit Submission Subjective/Objective: Consuelo Mehnaz contacted the office today via e-visit for UTI. The patient-submitted questionnaire was assessed for pertinent information and the patient's problem list, medication list, and allergies were reviewed as part of the e-visit. The chart was updated to identify any changes in these areas. Pt reports cloudy and change to smell of urine x few days Pt requesting abx and yeast infection med. Assessment: Diagnosis Plan 1. Urinary symptom or sign cephalexin (KEFLEX) 500 mg capsule fluconazole (DIFLUCAN) 150 mg tablet Plan: The patient was given information regarding any new medication(s) prescribed, if applicable, as well as any xuna-lsj-[id number] remedies. She was given instructions regarding follow up and timeframe if symptoms worsen or don???t improve. These instructions were included in the [place] message reply tothe patient. Patient Instructions were included in the message reply to patient. My total encounter time on 01/07/2024 was 5 minutes which was spent in the activities documented inthe note. New Medications Ordered This Visit cephalexin (KEFLEX) 500 mg capsule Sig: Take 1 capsule (500 mg total) by mouth 2 (two) times a day for 5 days Dispense: 10 capsule Refill: 0 fluconazole (DIFLUCAN) 150 mg tablet Sig: Take 1 tablet (150 mg total) by mouth once for 1 dose Dispense: 1 tablet Refill: 0 Keflex and Difluan sent to pharmacy. Take antibiotic as prescribed. Increase your water intake, and follow up with PCP/OB-MACHINE SHOP HELPER/UC if symptoms are not improving. Follow up in the ER for any fevers, back/flank pain, or increased abdominal pain. Oksana Wills NP documented in this encounter Plan of Treatment Not on file documented as of this encounter Visit Diagnoses Diagnosis Urinary symptom or sign- Primary documented in this encounter Care Teams Die Casting Supervisor Relationship Specialty Start Date End Date Jaden Thakur DO [address] [place] [address] PCP - General Family Medicine 06/01/23 documented as of this encounter
--- OUTSIDE RECORDS SUMMARY | 2024-03-19 20:52 | XMS_ITS | Encounter Summary ---
Author Organization [facility] Healthcare Address [address] [place] [address] Care Team Providers Care Music Assistant Name Role Phone Jaden Thakur Primary Care Provide r Reason for Referral * Diagnostic Imaging (Routine) - Pending Review Specialty Diagnoses / Procedures Referred By Jimena muller Referred To Contact Diagnoses Tendinopathy of left rotator cuff Procedures Imaging Ultrasound Shoulder, Hip, Knee Joint/Bursa INJ Left () Jacques Acevedo MD [address] [address] Phone: tel: fax: [address] [phone] Referral ID Status Reason Start Date Expiration Date V isits Requested Visits Authorized [id number] Pending Review 02/19/2024 03/20/2025 1 1 [employer] * Diagnostic Imaging (Routine) - Closed Specialty Diagnoses / Procedures Referred By Jimena muller Referred To Contact Diagnoses Chronic left hip pain Procedures Imaging Trigger Point INJ 1-2 Muscle Groups () Jacques Acevedo MD [address] [place] [address] Phone: tel: fax: [address] [phone] Referral ID Status Reason Start Date Expiration Date Visits Re quested Visits Authorized [id number] Closed 02/12/2024 03/13/2025 1 1 [employer] Reason for Visit * Reason Comments Hip Pain Left hip * Diagnostic Imaging (Routine) - Closed Specialty Diagnoses / Procedures Referred By Contac t Referred To Contact Diagnoses Chronic left hip pain Procedures Imaging Trigger Point INJ 1-2 Muscle Groups () Jacques Acevedo MD [address] [facility] [address] [place] [id number] Phone: tel: fax: [address] [phone] Referral ID Status Reason Start Date Expiration Date Visits Re quested Visits Authorized [id number] Closed 02/12/2024 03/13/2025 1 1 Encounter Details Date Type Department Care Team (Latest Contact Info) Description 02/19/2024 10:57 AM [employer] - 02/19/2024 11:59 PM [employer] Hospital Encounter [facility] [address] [facility] [address] [place] [id number] Jacques Acevedo MD [address] [address] Myalgia (Primary Dx); Chronic left hip pain; Tendinopathy of left rotator cuff Discharge Disposition: Discharge to home or self care Social History Tobacco Use Types Packs/Day Years Used Date Smoking Tobacco: Former Cigarettes Passive Smoke Exposure: Past Smokeless Tobacco: Never Tobacco Cessation:Counseling Given: Not Answered AUDIT-C Answer Date Recorded Q1: How often do you have a drink containing alcohol? Never 02/19/2024 Q2: How many drinks containi ng alcohol do you have on a typical day when you are drinking? Patient does not drink Q3: How often do you have si x or more drinks on one occasion? Never 02/19/2024 Personal Safety Answer Date Recorded Have you ever been in or are you currently in a harmful physical or emotional relationship or is someone making you feel afraid or unsafe? Denies 02/11/2024 Comments No Sex and Gender Information Value Date Recorded Sex Assigned at Not on file Legal Sex Female 10:05 AM [employer] Gender Identity Not on file Sexual Orientation Not on file documented as of this encounter Last Filed Vital Signs Vital Sign Reading Time Taken Comments Blood Pressure 128/81 02/19/2024 12:29 PM [employer] Pulse 85 02/19/2024 12:29 PM [employer] Temperature 36.4 ??C (97.5 ??F) 02/19/2024 11:[address] Respiratory Rate 14 02/19/2024 12:29 PM [employer] Oxygen Saturation 94% 02/19/2024 12:29 PM [employer] Inhaled Oxygen Concentration - - Weight 102.1 kg (225 lb) 02/19/2024 11:05 AM [employer] Height 162.6 cm (5' 4 ) 02/19/2024 11:05 AM [employer] Body Mass Index 38.62 02/19/2024 11:05 AM [employer] documented in this encounter Discharge Instructions * Discharge Instructions* Divine Simon RN - 02/19/2024 11:01 AM [employer] [facility] PATIENT EDUCATION POST-PROCEDURE INFORMATION SHEET After this procedure you may have: Dizziness Numbness in extremities Weakness in extremities These symptoms generally wear off in 6-8 hours, but are almost always gone by the next morning. A small amount of bruising, bleeding, swelling at the injection site(s). It is recommended you apply ice packs for 20 minutes every 1-2 hours for the first 24 hours. After 24 hours, if you still have discomfort, you may use a heating pad. Do not sit or lie on top of heating pad. Do not leave ice or heat on for more than 20 minutes at a time. Stand up slowly from a sitting or lying position today to prevent feeling dizzy or lightheaded. Limit activity today, which includes no driving. You may resume your normal activity and driving the next day after your procedure. You may take a shower. No tub bath, swimming pool, hot tub, etc., for 24 hours. You have received two (2) medications in your injection today. The first is a numbing medicine. This medicine may give you quick pain relief that may wear off before tomorrow. The second medicine is a steroid which may take 2-7 days to start working. You may also have some extra soreness at the injection site. After the numbing medicine wears off, your pain may return until the steroid starts working. If you have any questions or problems, please call the Pain Management Center at . For emergencies after 4:00 p.m., you should call the hospital boiler or engine operator at and ask tospeak with the Pain Service doctor process control engineer. PA[facility] MANA[facility]EMENT CENTER ([facility]) DISCHARGE INSTRUCTIONS MEDICATIONS: [x] Continue your current home medications Start: [x] Notify your pharmacy for refill(s) 7 days before you are out of your medication. [] Opioid (Narcotic) Agreement signed and patient received copy. [] Side Effects of Opioid Medications given to patient Resume blood thinner: On Discontinue: PROCEDURE at today's visit: Piriformis Trigger Point Injection DIET: [x] Resume normal diet [] See [facility] Post Discharge Procedure Information Sheet ACTIVITY: [] Resume normal activity [x] See [facility] Post Discharge Procedure Information Sheet REFERRALS: Physical Therapy [] [facility] ([phone]) [] GMI (Graded Motor Imagery) [] [facility] ([phone]) Option 1 [] GMI (Graded Motor Imagery) [] [facility] ([phone]) [] Other: Behavior Medicine [] Pain Psychologist, [facility] Please call to schedule appointment [phone] or [phone] Diagnostic Test(s): May get Radiographs performed in Radiation/X-Ray 6th floor, [address]. [] Please call to schedule MRI or CT scan at [phone] [] Please call to schedule EMG at [phone] EDUCATION provided on the following: [] Spinal Cord Stimulator Education and DVD. Vendor: FOLLOW UP APPOINTMENTS: [] Return as needed [x] Follow up appointment: 10 weeks We will contact you the next business day to obtain: [] An update on your condition [] Your Pain diary scores [x] Procedure at your next visit : Left shoulder when available INSTRUCTIONS before your next procedure: [] See [facility] Pre-Procedure Information Sheet [] Do not eat or drink for six (6) hours before the time/date of the procedure. [] Inquire with your prescribing provider if ok to hold blood thinner for ( ) days before procedure. [] Blood work required 2 hours before procedure: [] Agency Sales Director needed for next procedure [] Pre Procedure instructions will be sent through [employer] or by phone two working days prior to procedure. *Need help with VetDChart? Call [phone]. Patient provided information and repeated back with understanding. If you need to reach us: For any questions about your procedure, please call the Pain Management Center [phone] (M-F) (8am-4pm) If you need urgent attention after 5 pm and weekends: Call the [facility] Training Manager at [phone] and ask for the Pain Service doctor process control engineer. [employer] documented in this encounter Medications at Time of Discharge aspirin 81 mg enteric coated tablet Take 1 tablet (81 mg total) by mouth daily baclofen (LIORESAL) 10 mg tablet Take 1 tablet (10 mg total) by mouth daily 01/30/2024 busPIRone (BUSPAR) 5 mg tablet Take 1 tablet (5 mg total) by mouth 2 (two) times a day 06/29/2023 cetirizine 10 mg tablet,disintegratin g Take 10 mg by mouth nightly cholecalciferol 25 mcg (1,000 unit) tablet 2 tablets (2,000 Units total) daily 12/14/2022 cyclobenzaprine (FLEXERIL) 5 mg tablet Take 1 tablet (5 mg total) by mouth 3 (three) times a day 12/14/[address] (CYMBALTA) 60 mg capsule Take 1 capsule (60 mg total) by mouth daily 02/15/2023 fluconazole (Diflucan) 150 mg tablet 1 tablet, one time only, may repeat once after 4 days 2 tablet 02/03/2024 HYDROcodone-acetamin ophen (NORCO) 10-325 mg per tablet Take 1 [...] (40 mg total) by mouth daily 03/21/2023 phenazopyridine (PYRIDIUM) 200 mg tablet Take 1 tablet (200 mg total) by mouth 2 (two) times a day 10 tablet 02/11/2024 polyethylene glycol (MIRALAX) 17 gram packet 1 packet (17 g total) 2 (two) times a day as needed 12/14/2022 ubrogepant (UBRELVY) 100 mg tablet Take 1 tablet (100 mg total) by mouth 2 (two) times a day as needed 11/21/2023 verapamil ER (VERELAN) 180 mg 24 hr capsule 02/13/2024 cefdinir (OMNICEF) 300 mg capsule Take 1 capsule (300 mg total) by mouth 2 (two) times a day for 10 days 20 capsule 02/11/2024 4 ondansetron ODT (ZOFRAN-ODT) 8 mg disintegrating tablet 02/12/2024 betamethasone dipropionate (DEL-BETA) 0.05 % cream Apply topically 2 (two) times a day 11/13/2023 5 metaxalone (SKELAXIN) 800 mg tablet 11/14/2023 5 documented as of this encounter Discharge Disposition Disposition Code Departure Means Destination Discharge to home or self care documented in this encounter H&P Notes * Jacques Acevedo MD - 02/19/2024 11:30 AM CST I have reviewed the H&P, examined the patient, and endorse the findings as written. Plan of Care : Based on the above findings, I consider Consuelo Jimenez to be an acceptable risk for:left piriformis injection [employer] Source Note - Jacques Acevedo MD - 02/12/2024 9:30 AM [employer] Patient Name: Consuelo Jimenez : 1980 Today's Date: 02/12/2024 PCP: Jaden Thakur DO Referring: Notinfshell Unknown Chief Complaint Patient presents with Shoulder Pain Hip Pain HPI: Ms. Consuelo Jimenez is a 43 y.o. female who was referred for consultation regarding treatment recommendations for management of left hip and shoulder pain. Patient's left hip pain is worse than her shoulder pain. Patient's pain started roughly a year ago after her stroke. She describes her pain primarily as an aching pain. She has been evaluated by Orthopedic surgery with potential surgery being offered for her left shoulder, both per the patient has been, there are no plans for consideration for left hip surgery. Patient has had a number of intra-articular hip injections--some being performedunder sonography. With injections performed under sonography, the patient has had some degree of relief--reporting that it does make it at least manageable--but the last 1 only lasted for about 1 month. Her current medication regimen does cause some degree of fatigue for the patient, but it does seem to be overall helpful. Patient has left hip pain is described as specifically coming from the piriformis with some radiation/referral into the left groin. However, the primary source of the pain is in the buttock. Patient and have a friend his massage therapist in the report that piriformis release is helpful forabout a day at a time. For her shoulder, she has undergone injections performed by palpation which unfortunately have not been helpful for her. Pain Assessment Pain Score: 6 Pain Location: Shoulder Pain Radiating Towards: localized Pain Descriptors: Aching Pain Frequency: Constant/continuous Pain Onset: Ongoing Previous injections: Hip Shoulder Prior pain medications: Gabapentin Duloxetine Hydrocodone Keppra Ubrelvy Skelaxin Flexeril Baclofen Imagin. IRREGULAR APPEARANCE SUGGESTING SUBTLE CHRONIC SUPERIOR LATERAL LEFT LABRAL TEAR. NO OTHER SIGNIFICANT ABNORMALITY. IMPRESSION: 1. Moderate tendinopathy of the subscapularis and supraspinatus with bursal surface fraying of the supraspinatus tendon. 2. Tear of the superior and posterior glenoid labrum. Patient's Medications New Prescriptions No medications on file Previous Medications ASPIRIN 81 MG ENTERIC COATED TABLET Take 1 tablet (81 mg total) by mouth daily Authorizing Provider: Armand Jacinto MD Notes: -- BACLOFEN (LIORESAL) 10 MG TABLET Take 1 tablet (10 mg total) by mouth daily Authorizing Provider: Armand Jacinto MD Notes: -- BETAMETHASONE DIPROPIONATE (DEL-BETA) 0.05 % CREAM Apply topically 2 (two) times a day Authorizing Provider: Armand Jacinto MD Notes: -- BUSPIRONE (BUSPAR) 5 MG TABLET Take 1 tablet (5 mg total) by mouth 2 (two) times a day Authorizing Provider: Armand Jacinto MD Notes: -- CEFDINIR (OMNICEF) 300 MG CAPSULE Take 1 capsule (300 mg total) by mouth 2 (two) times a day for 10days Authorizing Provider: Nicanor Swanson Jr., MD Notes: -- CETIRIZINE 10 MG TABLET,DISINTEGRATING Take 10 mg by mouth nightly Authorizing Provider: Armand Jacinto MD Notes: -- CHOLECALCIFEROL 25 MCG (1,000 UNIT) TABLET 2 tablets (2,000 Units total) daily Authorizing Provider: Armand Jacinto MD Notes: -- CYCLOBENZAPRINE (FLEXERIL) 5 MG TABLET Take 1 tablet (5 mg total) by mouth 3 (three) times a day Authorizing Provider: Armand Jacinto MD Notes: -- DULOXETINE DR (CYMBALTA) 60 MG CAPSULE Take 1 capsule (60 mg total) by mouth daily Authorizing Provider: Armand Jacinto MD Notes: -- FLUCONAZOLE (DIFLUCAN) 150 MG TABLET 1 tablet, one time only, may repeat once after 4 days Authorizing Provider: Shauna Hua NP Notes: -- HYDROCODONE-ACETAMINOPHEN (NORCO) 10-325 MG PER TABLET Take 1 tablet by mouth every 6 (six) hours as needed Authorizing Provider: Armand Jacinto MD Notes: -- HYDROXYZINE (ATARAX) 25 MG TABLET Take 1 tablet (25 mg total) by mouth every 8 (eight) hours as needed Authorizing Provider: Armand Jacinto MD Notes: -- LEVETIRACETAM (KEPPRA) 1,000 MG TABLET Take 1.5 tablets (1,500 mg total) by mouth 2 (two) times a day Authorizing Provider: Bridgett Diaz MD Notes: -- LORAZEPAM (ATIVAN) 0.5 MG TABLET Take 1 tablet (0.5 mg total) by mouth 2 (two) times a day for 5 doses Authorizing Provider: Bridgett Diaz MD Notes: -- METAXALONE (SKELAXIN) 800 MG TABLET Authorizing Provider: Armand Jacinto MD Notes: -- METOPROLOL TARTRATE (LOPRESSOR) 25 MG IMMEDIATE RELEASE TABLET Take 1 tablet (25 mg total) by mouth2 (two) times a day Authorizing Provider: Armand Jacinto MD Notes: -- ONDANSETRON ODT (ZOFRAN-ODT) 4 MG DISINTEGRATING TABLET Take 1 tablet (4 mg total) by mouth every 8(eight) hours as needed Authorizing Provider: Armand Jacinto MD Notes: -- PANTOPRAZOLE DR (PROTONIX) 40 MG EC TABLET Take 1 tablet (40 mg total) by mouth daily Authorizing Provider: Armand Jacinto MD Notes: -- PHENAZOPYRIDINE (PYRIDIUM) 200 MG TABLET Take 1 tablet (200 mg total) by mouth 2 (two) times a day Authorizing Provider: Nicanor Swanson Jr., MD Notes: -- POLYETHYLENE GLYCOL (MIRALAX) 17 GRAM PACKET 1 packet (17 g total) 2 (two) times a day as needed Authorizing Provider: Armand Jacinto MD Notes: -- UBROGEPANT (UBRELVY) 100 MG TABLET Take 1 tablet (100 mg total) by mouth 2 (two) times a day as needed Authorizing Provider: Armand Jacinto MD Notes: -- VERAPAMIL SR (CALAN SR) 120 MG CR TABLET Take 1 tablet (120 mg total) by mouth nightly Authorizing Provider: Armand Jacinto MD Notes: -- Modified Medications No medications on file Discontinued Medications BACLOFEN (LIORESAL) 5 MG TABLET Take 2 tablets (10 mg total) by mouth daily Authorizing Provider: Armand Jacinto MD Notes: -- Allergies Allergen Reactions Latex Rash and Other (See comments) Vancomycin Other (See comments) High fevers Past Medical History: Diagnosis Date Hypertension Seizure (HCC) Seizure disorder (CMS/HCC) (HCC) 09/25/2023 Stroke (HCC) Past Surgical History: Procedure Laterality Date SECTION x2 Family History Problem Relation Age of Onset Osteoporosis Other Blood Clot Other Social History Tobacco Use Smoking status: Former Types: Cigarettes Passive exposure: Past Smokeless tobacco: Never Substance and Sexual Activity Drug use: Never Sexual activity: Defer Alcohol Use: Not At Risk (01/01/2024) AUDIT-C Frequency of Alcohol Consumption: Never Average Number of Drinks: Patient does not drink Frequency of Binge Drinking: Never Review of Systems: ROS Lab Results Component Value Date WBC 8.5 02/11/2024 HGB 14.1 02/11/2024 HCT 42.2 02/11/2024 MCV 91.9 02/11/2024 LABPLAT 359 02/11/2024 Most Recent : Vitals BP 117/61 Pulse 86 Temp 97.5 ??F (36.4 ??C) Resp 10 Ht 162.6 cm (5' 4 ) Wt 105.7 kg (233 lb) LMP 01/26/2024 SpO2 97% BMI 39.99 kg/m?? Physical Exam: General: No acute distress, conversant HEENT: Anicteric sclerae. Normocephalic, atraumatic. Hearing grossly normal. Neck: Trachea midline. Cardiovascular: No edema or cyanosis noted Respiratory: Unlabored breathing. Normal effort. No audible wheeze/stridor. Abdomen: Not examined Musculoskeletal: Gait: in wheelchair Log roll negative on the left. Reproduction of the patient's pain with femoral abduction on the left. Left arm in sling Psychiatric: Normal mood, affect, insight. Skin: Warm. No rashes or lesions in the visible skin. Lab/Radiology/Diagnostic Review: Lab and Radiology Findings reviewed, Clinical significance noticed. Recent Labs Lab Units 02/11/241950 WBC K/cumm 8.5 HEMOGLOBIN g/dL 14.1 HEMATOCRIT % 42.2 PLATELETS K/cumm 359 Recent Labs Lab Units 02/11/241950 SODIUM mmol/L 137 POTASSIUM PLASMA mmol/L 3.3 CHLORIDE mmol/L 99 CO2 mmol/L 21* ANIONGAP mmol/L 17* GLUCOSE mg/dL 97 BUN SERUM mg/dL 11 CREATININE mg/dL 0.50* CALCIUM mg/dL 9.3 ALBUMIN g/dL 4.2 ALK PHOS Units/L 65 ALT Units/L 74* AST Units/L 138* BILIRUBIN TOTAL mg/dL 0.5 Lab Results Component Value Date CREATININE 0.50 (L) 02/11/2024 MRI Shoulder Left WO Contrast 10/02/2023 CT Abdomen Pelvis W Contrast Result Date: 02/11/2024 Narrative: EXAM DESCRIPTION: CT ABDOMEN PELVIS W CONTRAST REASON FOR STUDY: LLQ abdominal pain Abdominal pain since 02/02/2024 on Protonix for GERD. Pt reports pain is upper mid abd and lower left. Hx of CVA 10/2022 seen at [facility] for this, residual left-sided paralysis. Pt has hx of feeding tube with reversal and several surgeries on stomach but none since 12/2022. Reports frequent UTI but denies urinary symptoms at this time. Pt does report vomiting green/yellow on 02/09 no emesis today. Pt also reports loose stools. PT states called PCP who deflected pt to the ED for eval. TECHNIQUE: CT scan ofthe abdomen and pelvis performed with intravenous and without oral contrast using helical scanning t echnique with dynamic intravenous contrast injection. Reconstructed coronal and sagittal MPR imagesreviewed. All images stored on PACS. Automated exposure control was used as a dose optimization technique for this examination. CONTRAST TYPE/DOSE: 100mL of IOVERSOL 350 MG IODINE/ML INTRAVENOUS SYRINGE injected via intravenous COMPARISON: None FINDINGS: LOWER CHEST: No significant pulmonary abnormalities. No effusion. LIVER: Mild hypodensity of the liver is suggested of diffuse fatty infiltration. No focal lesion is seen. GALLBLADDER: Unremarkable BILE DUCTS: No intrahepatic or extrahepatic ductal dilatation. SPLEEN: Normal size. No focal lesions. PANCREAS: No identified cystic or solid masses. No significant calcifications. No adjacent inflammation or peripancreatic fluid collections. Pancreatic duct not dilated. ADRENALS: Normal. KIDNEYS/URINARY TRACT: No identified significant cysticor solid masses. No visualized stones. No hydronephrosis or hydroureter. Symmetric enhancement. Urin rocío bladder is unremarkable. GI: No dilated bowel loops. No obvious wall thickening. Small appendicoliths are suspected. The appendix otherwise appears normal without evidence of inflammation or infection.. No significant diverticular disease. PERITONEUM: No ascites or free air. RETROPERITONEUM: No mass or adenopathy. REPRODUCTIVE: 3.2 cm left ovarian cyst is suspected. VASCULATURE: No abdominalaortic aneurysm. MUSCULOSKELETAL: No significant abnormality. OTHER: No other abnormality. IMPRESSION: 3.2 cm left ovarian cyst is suspected. Follow-up ultrasound in 6 weeks is suggested to ensure resolution. No findings are seen to clearly explain left lower quadrant pain. No evidence of diverticulitis is seen. THIS IS AN ELECTRONICALLY VERIFIED FINAL REPORT 02/11/2024 11:00 PM - Electronically signed by Liam Begum M.D. KH: JAIMIE ReportID: [id number] Reading Location: [id number] CT Head WO Contrast Result Date: 02/11/2024 Narrative: EXAM DESCRIPTION: CT HEAD WO CONTRAST REASON FOR STUDY: Mental status change, unknown cause Abdominal pain since 02/02/2024 on Protonix for GERD. Pt reports pain is upper mid abd and lowerleft. Hx of CVA 10/2022 seen at [facility] for this, residual left-sided paralysis. Pt has hx of feeding tube with reversal and several surgeries on stomach but none since 12/2022. Reports frequent UTI but denies urinary symptoms at this time. Pt does report vomiting green/yellow on 02/09 no emesis today. Pt also reports loose stools. PT states called PCP who deflected pt to the ED for eval. TECHNIQUE: Axial images acquired through the brain without intravenous contrast. Images stored on PACS. Automatedexposure control was used as a dose optimization technique for this examination. COMPARISON: None FINDINGS: BRAIN: No hemorrhage, edema or mass effect. No recent infarct. Large area of encephalomalacia is seen involving the right temporal and frontal lobes. Overlying craniotomy defect is noted consistent with prior surgery. There are some minor encephalomalacia is seen in the left frontal lobe. Mild underlying atrophy of the brain is also noted. EXTRA-AXIAL SPACES: No fluid collections. No masses. CALVARIUM: No fracture. SINUSES/MASTOIDS: No fluid or mucosal thickening. ORBITS: No significantabnormality. OTHER: No other significant abnormality. IMPRESSION: Extensive encephalomalacia is seen in the right. No evidence of acute abnormality is seen. THIS IS AN ELECTRONICALLY VERIFIED FINAL REPORT 02/11/2024 10:43 PM - Electronically signed by Liam Begum M.D. KH: KH Report ID: [id number] Reading Location: [id number] DEVICE CHECK - REMOTE Result Date: 02/03/2024 Narrative: Interpretation Summary: Battery and Leads (BL) Normal battery parameters Presenting Rhythm (CT) Normal Sinus Rhythm Arrhythmic events (AE) No new arrhythmic events in monitoring period Transmission Information (TI) Device Summary Report Implant indication: Cryptogenic Stroke ASSESSMENTS: Encounter Diagnoses Name Primary? 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 In addition, I have reviewed and confirmed with the patient and nurse the supportive information documented in today's scanned PatientHealth Questionnaire and Office Note. PLAN: Following treatment recommendations were discussed in detail with patient. Analgesics: Defer Interventions: Left piriformis trigger point injection for myalgia at the patient's next visit. Consideration for Botox, left hip RFA, left glenohumeral/subacromial injection, left shoulder RFA, or left shoulder orperipheral nerve stimulation in the future. PT and Pain Psychology: Encourage HEP Images and Labs: Reviewed Referrals including surgery, neurology, rheumatology and other specialty referrals: None Other modalities (including implants) None Follow ups: Next available for the procedure listed above Jacques Acevedo MD Attending Physician, Pain Management [facility], [facility] [employer] SEAL DELIVERY SYSTEM * Jacques Acevedo MD - 02/19/2024 11:30 AM CST I have reviewed the H&P, examined the patient, and endorse the findings as written. Plan of Care : Based on the above findings, I consider Consuelo Jimenez to be an acceptable risk for:TPI NCED SEAL DELIVERY SYSTEM Source Note - Jacques Acevedo MD - 02/12/2024 9:30 AM [employer] Patient Name: Consuelo Jimenez : 1980 Today's Date: 02/12/2024 PCP: Jaden Thakur DO Referring: Notinfile Unknown Chief Complaint Patient presents with Shoulder Pain Hip Pain HPI: Ms. Consuelo Jimenez is a 43 y.o. female who was referred for consultation regarding treatment recommendations for management of left hip and shoulder pain. Patient's left hip pain is worse than her shoulder pain. Patient's pain started roughly a year ago after her stroke. She describes her pain primarily as an aching pain. She has been evaluated by Orthopedic surgery with potential surgery being offered for her left shoulder, both per the patient has been, there are no plans for consideration for left hip surgery. Patient has had a number of intra-articular hip injections--some being performedunder sonography. With injections performed under sonography, the patient has had some degree of relief--reporting that it does make it at least manageable--but the last 1 only lasted for about 1 month. Her current medication regimen does cause some degree of fatigue for the patient, but it does seem to be overall helpful. Patient has left hip pain is described as specifically coming from the piriformis with some radiation/referral into the left groin. However, the primary source of the pain is in the buttock. Patient and have a friend his massage therapist in the report that piriformis release is helpful forabout a day at a time. For her shoulder, she has undergone injections performed by palpation which unfortunately have not been helpful for her. Pain Assessment Pain Score: 6 Pain Location: Shoulder Pain Radiating Towards: localized Pain Descriptors: Aching Pain Frequency: Constant/continuous Pain Onset: Ongoing Previous injections: Hip Shoulder Prior pain medications: Gabapentin Duloxetine Hydrocodone Keppra Ubrelvy Skelaxin Flexeril Baclofen Imagin. IRREGULAR APPEARANCE SUGGESTING SUBTLE CHRONIC SUPERIOR LATERAL LEFT LABRAL TEAR. NO OTHER SIGNIFICANT ABNORMALITY. IMPRESSION: 1. Moderate tendinopathy of the subscapularis and supraspinatus with bursal surface fraying of the supraspinatus tendon. 2. Tear of the superior and posterior glenoid labrum. Patient's Medications New Prescriptions No medications on file Previous Medications ASPIRIN 81 MG ENTERIC COATED TABLET Take 1 tablet (81 mg total) by mouth daily Authorizing Provider: Armand Jacinto MD Notes: -- BACLOFEN (LIORESAL) 10 MG TABLET Take 1 tablet (10 mg total) by mouth daily Authorizing Provider: Armand Jacinto MD Notes: -- BETAMETHASONE DIPROPIONATE (DEL-BETA) 0.05 % CREAM Apply topically 2 (two) times a day Authorizing Provider: Armand Jacinto MD Notes: -- BUSPIRONE (BUSPAR) 5 MG TABLET Take 1 tablet (5 mg total) by mouth 2 (two) times a day Authorizing Provider: Armand Jacinto MD Notes: -- CEFDINIR (OMNICEF) 300 MG CAPSULE Take 1 capsule (300 mg total) by mouth 2 (two) times a day for 10days Authorizing Provider: Nicanor Swanson Jr., MD Notes: -- CETIRIZINE 10 MG TABLET,DISINTEGRATING Take 10 mg by mouth nightly Authorizing Provider: Armand Jacinto MD Notes: -- CHOLECALCIFEROL 25 MCG (1,000 UNIT) TABLET 2 tablets (2,000 Units total) daily Authorizing Provider: Armand Jacinto MD Notes: -- CYCLOBENZAPRINE (FLEXERIL) 5 MG TABLET Take 1 tablet (5 mg total) by mouth 3 (three) times a day Authorizing Provider: Armand Jacinto MD Notes: -- DULOXETINE DR (CYMBALTA) 60 MG CAPSULE Take 1 capsule (60 mg total) by mouth daily Authorizing Provider: Armand Jacinto MD Notes: -- FLUCONAZOLE (DIFLUCAN) 150 MG TABLET 1 tablet, one time only, may repeat once after 4 days Authorizing Provider: Shauna Hua NP Notes: -- HYDROCODONE-ACETAMINOPHEN (NORCO) 10-325 MG PER TABLET Take 1 tablet by mouth every 6 (six) hours as needed Authorizing Provider: Armand Jacinto MD Notes: -- HYDROXYZINE (ATARAX) 25 MG TABLET Take 1 tablet (25 mg total) by mouth every 8 (eight) hours as needed Authorizing Provider: Armand Jacinto MD Notes: -- LEVETIRACETAM (KEPPRA) 1,000 MG TABLET Take 1.5 tablets (1,500 mg total) by mouth 2 (two) times a day Authorizing Provider: Bridegtt Diaz MD Notes: -- LORAZEPAM (ATIVAN) 0.5 MG TABLET Take 1 tablet (0.5 mg total) by mouth 2 (two) times a day for 5 doses Authorizing Provider: Bridgett Diaz MD Notes: -- METAXALONE (SKELAXIN) 800 MG TABLET Authorizing Provider: Armand Jacinto MD Notes: -- METOPROLOL TARTRATE (LOPRESSOR) 25 MG IMMEDIATE RELEASE TABLET Take 1 tablet (25 mg total) by mouth2 (two) times a day Authorizing Provider: Armand Jacinto MD Notes: -- ONDANSETRON ODT (ZOFRAN-ODT) 4 MG DISINTEGRATING TABLET Take 1 tablet (4 mg total) by mouth every 8(eight) hours as needed Authorizing Provider: Armand Jacinto MD Notes: -- PANTOPRAZOLE DR (PROTONIX) 40 MG EC TABLET Take 1 tablet (40 mg total) by mouth daily Authorizing Provider: Armand Jacinto MD Notes: -- PHENAZOPYRIDINE (PYRIDIUM) 200 MG TABLET Take 1 tablet (200 mg total) by mouth 2 (two) times a day Authorizing Provider: Nicanor Swanson Jr., MD Notes: -- POLYETHYLENE GLYCOL (MIRALAX) 17 GRAM PACKET 1 packet (17 g total) 2 (two) times a day as needed Authorizing Provider: Armand Jacinto MD Notes: -- UBROGEPANT (UBRELVY) 100 MG TABLET Take 1 tablet (100 mg total) by mouth 2 (two) times a day as needed Authorizing Provider: Armand Jacinto MD Notes: -- VERAPAMIL SR (CALAN SR) 120 MG CR TABLET Take 1 tablet (120 mg total) by mouth nightly Authorizing Provider: Armand Jacinto MD Notes: -- Modified Medications No medications on file Discontinued Medications BACLOFEN (LIORESAL) 5 MG TABLET Take 2 tablets (10 mg total) by mouth daily Authorizing Provider: Armand Jacinto MD Notes: -- Allergies Allergen Reactions Latex Rash and Other (See comments) Vancomycin Other (See comments) High fevers Past Medical History: Diagnosis Date Hypertension Seizure (HCC) Seizure disorder (CMS/HCC) (HCC) 09/25/2023 Stroke (HCC) Past Surgical History: Procedure Laterality Date SECTION x2 Family History Problem Relation Age of Onset Osteoporosis Other Blood Clot Other Social History Tobacco Use Smoking status: Former Types: Cigarettes Passive exposure: Past Smokeless tobacco: Never Substance and Sexual Activity Drug use: Never Sexual activity: Defer Alcohol Use: Not At Risk (01/01/2024) AUDIT-C Frequency of Alcohol Consumption: Never Average Number of Drinks: Patient does not drink Frequency of Binge Drinking: Never Review of Systems: ROS Lab Results Component Value Date WBC 8.5 02/11/2024 HGB 14.1 02/11/2024 HCT 42.2 02/11/2024 MCV 91.9 02/11/2024 LABPLAT 359 02/11/2024 Most Recent : Vitals BP 117/61 Pulse 86 Temp 97.5 ??F (36.4 ??C) Resp 10 Ht 162.6 cm (5' 4 ) Wt 105.7 kg (233 lb) LMP 01/26/2024 SpO2 97% BMI 39.99 kg/m?? Physical Exam: General: No acute distress, conversant HEENT: Anicteric sclerae. Normocephalic, atraumatic. Hearing grossly normal. Neck: Trachea midline. Cardiovascular: No edema or cyanosis noted Respiratory: Unlabored breathing. Normal effort. No audible wheeze/stridor. Abdomen: Not examined Musculoskeletal: Gait: in wheelchair Log roll negative on the left. Reproduction of the patient's pain with femoral abduction on the left. Left arm in sling Psychiatric: Normal mood, affect, insight. Skin: Warm. No rashes or lesions in the visible skin. Lab/Radiology/Diagnostic Review: Lab and Radiology Findings reviewed, Clinical significance noticed. Recent Labs Lab Units 02/11/241950 WBC K/cumm 8.5 HEMOGLOBIN g/dL 14.1 HEMATOCRIT % 42.2 PLATELETS K/cumm 359 Recent Labs Lab Units 02/11/241950 SODIUM mmol/L 137 POTASSIUM PLASMA mmol/L 3.3 CHLORIDE mmol/L 99 CO2 mmol/L 21* ANIONGAP mmol/L 17* GLUCOSE mg/dL 97 BUN SERUM mg/dL 11 CREATININE mg/dL 0.50* CALCIUM mg/dL 9.3 ALBUMIN g/dL 4.2 ALK PHOS Units/L 65 ALT Units/L 74* AST Units/L 138* BILIRUBIN TOTAL mg/dL 0.5 Lab Results Component Value Date CREATININE 0.50 (L) 02/11/2024 MRI Shoulder Left WO Contrast 10/02/2023 CT Abdomen Pelvis W Contrast Result Date: 02/11/2024 Narrative: EXAM DESCRIPTION: CT ABDOMEN PELVIS W CONTRAST REASON FOR STUDY: LLQ abdominal pain Abdominal pain since 02/02/2024 on Protonix for GERD. Pt reports pain is upper mid abd and lower left. Hx of CVA 10/2022 seen at [facility] for this, residual left-sided paralysis. Pt has hx of feeding tube with reversal and several surgeries on stomach but none since 12/2022. Reports frequent UTI but denies urinary symptoms at this time. Pt does report vomiting green/yellow on 02/09 no emesis today. Pt also reports loose stools. PT states called PCP who deflected pt to the ED for eval. TECHNIQUE: CT scan ofthe abdomen and pelvis performed with intravenous and without oral contrast using helical scanning t echnique with dynamic intravenous contrast injection. Reconstructed coronal and sagittal MPR imagesreviewed. All images stored on PACS. Automated exposure control was used as a dose optimization technique for this examination. CONTRAST TYPE/DOSE: 100mL of IOVERSOL 350 MG IODINE/ML INTRAVENOUS SYRINGE injected via intravenous COMPARISON: None FINDINGS: LOWER CHEST: No significant pulmonary abnormalities. No effusion. LIVER: Mild hypodensity of the liver is suggested of diffuse fatty infiltration. No focal lesion is seen. GALLBLADDER: Unremarkable BILE DUCTS: No intrahepatic or extrahepatic ductal dilatation. SPLEEN: Normal size. No focal lesions. PANCREAS: No identified cystic or solid masses. No significant calcifications. No adjacent inflammation or peripancreatic fluid collections. Pancreatic duct not dilated. ADRENALS: Normal. KIDNEYS/URINARY TRACT: No identified significant cystic or solid masses. No visualized stones. No hydronephrosis or hydroureter. Symmetric enhancement. Urinary bladder is unremarkable. GI: No dilated bowel loops. No obvious wall thickening. Small appendicoliths are suspected. The appendix otherwise appears normal without evidence of inflammation or infection.. No significant diverticular disease. PERITONEUM: No ascites or free air. RETROPERITONEUM: No mass or adenopathy. REPRODUCTIVE: 3.2 cm left ovarian cyst is suspected. VASCULATURE: No abdominal aortic aneurysm. MUSCULOSKELETAL: No significant abnormality. OTHER: No other abnormality. IMPRESSION: 3.2 cm left ovarian cyst is suspected. Follow-up ultrasound in 6 weeks is suggested to ensure resolution. No findings are seen to clearly explain left lower quadrant pain. No evidence of diverticulitis is seen. THIS IS AN ELECTRONICALLY VERIFIED FINAL REPORT 02/11/2024 11:00 PM - Electronically signed by Liam ETIENNE: JAIMIE Report ID: [id number] Reading Location: [id number] CT Head WO Contrast Result Date: 02/11/2024 Narrative: EXAM DESCRIPTION: CT HEAD WO CONTRAST REASON FOR STUDY: Mental status change, unknown cause Abdominal pain since 02/02/2024 on Protonix for GERD. Pt reports pain is upper mid abd and lowerleft. Hx of CVA 10/2022 seen at [facility] for this, residual left-sided paralysis. Pt has hx of feeding tube with reversal and several surgeries on stomach but none since 12/2022. Reports frequent UTI but denies urinary symptoms at this time. Pt does report vomiting green/yellow on 02/09 no emesis today. Pt also reports loose stools. PT states called PCP who deflected pt to the ED for eval. TECHNIQUE: Axial images acquired through the brain without intravenous contrast. Images stored on PACS. Automatedexposure control was used as a dose optimization technique for this examination. COMPARISON: None FINDINGS: BRAIN: No hemorrhage, edema or mass effect. No recent infarct. Large area of encephalomalacia is seen involving the right temporal and frontal lobes. Overlying craniotomy defect is noted consistent with prior surgery. There are some minor encephalomalacia is seen in the left frontal lobe. Mild underlying atrophy of the brain is also noted. EXTRA-AXIAL SPACES: No fluid collections. No masses. CALVARIUM: No fracture. SINUSES/MASTOIDS: No fluid or mucosal thickening. ORBITS: No significantabnormality. OTHER: No other significant abnormality. IMPRESSION: Extensive encephalomalacia is seen in the right. No evidence of acute abnormality is seen. THIS IS AN ELECTRONICALLY VERIFIED FINAL REPORT 02/11/2024 10:43 PM - Electronically signed by Liam ETIENNE: JAIMIE Report ID: [id number] Reading Location: [id number] DEVICE CHECK - REMOTE Result Date: 02/03/2024 Narrative: Interpretation Summary: Battery and Leads (BL) Normal battery parameters Presenting Rhythm (CT) Normal Sinus Rhythm Arrhythmic events (AE) No new arrhythmic events in monitoring period Transmission Information (TI) Device Summary Report Implant indication: Cryptogenic Stroke ASSESSMENTS: Encounter Diagnoses Name Primary? 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 In addition, I have reviewed and confirmed with the patient and nurse the supportive information documented in today's scanned PatientHealth Questionnaire and Office Note. PLAN: Following treatment recommendations were discussed in detail with patient. Analgesics: Defer Interventions: Left piriformis trigger point injection for myalgia at the patient's next visit. Consideration for Botox, left hip RFA, left glenohumeral/subacromial injection, left shoulder RFA, or left shoulder orperipheral nerve stimulation in the future. PT and Pain Psychology: Encourage HEP Images and Labs: Reviewed Referrals including surgery, neurology, rheumatology and other specialty referrals: None Other modalities (including implants) None Follow ups: Next available for the procedure listed above Jacques Acevedo MD Attending Physician, Pain Management [facility], [facility] NCED SEAL DELIVERY SYSTEM documented in this encounter Miscellaneous Notes * Op Note - Jacques Acevedo MD - 02/19/2024 11:30 AM [employer] Procedure Performed: Left Piriformis Injection Surgeon: Jacques Acevedo MD Pre-Procedure Diagnosis: Piriformis Syndrome, myalgia Post-Procedure Diagnosis: Piriformis Syndrome, myalgia Description of Procedure: The risks, benefits, and complications related to the procedure were discussed, and written informed consent was obtained. The most recent H&P was reviewed and there were no changes noted. The patient was then taken to the procedure room and allowed to place themself in the prone position on the operating room table. Standard monitors were applied. The patient's left low back and buttock were prepped with chlorhexidine and draped in the usual sterile fashion. Fluoroscopy was utilizedto identify the inferior margin of the left sacroiliac joint. A #22g spinal needle was then advanced under fluoroscopic guidance until it contact the inferior margin of the left sacroiliac joint. It was then redirected approximately 1 cm inferior, 1 cm lateral, and 1 cm more anterior to the anticipated location of the piriformis. After negative aspiration, 1.5 mL of Omnipaque contrast was injected, which revealed excellent spread along the piriformis muscle. Again after negative aspiration, solution consisting of 4 mg/ml of methylprednisolone (1ml) plus 4 mL preservative free 0.25% bupivacaine was injected (total 5ml). The patient tolerated the procedure well, and there were no apparent complications. There were no neurosensory changes noted, and the patient was monitored in the recovery area following the procedure. Post-op instructions were reviewed with the patient. Operative Findings: The procedure was completed as planned. Complications: There were no apparent complication. Estimated Blood Loss: None Intraoperative Fluids: None Specimens: None DISPOSITION: Home in stable condition NCED SEAL DELIVERY SYSTEM documented in this encounter Plan of Treatment Scheduled Orders Name Type Priority Associated Diagnoses Orde r Schedule Imaging Ultrasound Shoulder, Hip, Knee Joint/Bursa INJ Left () Imaging Schedule Routine, Read Routine (OP Routine) Tendinopathy of left rotator cuff Expected: 02/19/2024, Expires: 02/18/2025 documented as of this encounter Goals Goal Patient Goal Type Associated Problems Recent Progress Patient-Stated? Author CCM Chronic Pain Care Plan Chronic Care Management On track(2023 11:07 AM [employer]IV[employer]) No Gianna Chairez RN Note: Problem: Chronic Pain Goals: 1. Minimize further functional decline 2. Maximize quality of life 3. Control pain Strategies: - Activity/exercise program recommendation - Conservative stepwise pain medicine strategy with multi-disciplinary approach - Recommend healthy lifestyle strategies and compensatory methods as needed documented as of this encounter Procedures Procedure Name Priority Date/Time Associated Diagnosis Comments PAIN MGMT IMAGING TRIGGER POINT INJ 1-2 MUSCLE GROUPS Schedule Routine, Read Routine (OP Routine) 02/19/2024 12:16 PM [employer] Chronic left hip pain documented in this encounter Results * Imaging Trigger Point INJ 1-2 Muscle Groups (37286) (02/19/2024 12:16 PM [employer] DELIV[employer]) Narrative [facility] - 02/19/2024 12:16 PM [employer] DELIV[employer] The images from this study are not interpreted by Radiology. ??Please refer to the physician's procedure / OR operative note. us Jacques Acevedo MD IMG PAIN MGMT PROCEDURES Final Result [facility] documented in this encounter Visit Diagnoses Diagnosis Myalgia- Primary Unspecified myalgia and myositis Chronic left hip pain Tendinopathy of left rotator cuff documented in this encounter Administered Medications Inactive Administered Medications - up to 3 most recent administrations Medication Order MAR Action Action Date Dose Rate Site BUPivacaine (MARCAINE) 0.5 % (5 mg/mL) preservative free injection As needed, Starting on Sun02/19/24 at 1211, Intra-Op Given 02/19/2024 12:11 PM [employer] 5 mL iohexoL (OMNIPAQUE) 300 mg iodine/mL injection solution As needed, Starting on Tu02/19/24 at 1210, Intra-Op Given 02/19/2024 12:10 PM [employer] 1 mL lidocaine (PF) (XYLOCAINE) 10 mg/mL (1 %) preservative free injection As needed, Starting on Tu02/19/24 at 1210, Intra-Op Given 02/19/2024 12:10 PM [employer] DELIV[employer] 8 mL triamcinolone (KENALOG) 40 mg/mL injection As needed, Starting on Sun02/19/24 at 1211, Intra-Op Given 02/19/2024 12:11 PM [employer] 40 mg Other (Comment) documented in this encounter Discontinued Medications Medication Sig Discontinue Reason Start Date End Da te verapamil SR (CALAN SR) 120 mg CR tablet Take 1 tablet (120 mg total) by mouth nightly 02/19/2024 ondansetron ODT (ZOFRAN-ODT) 4 mg disintegrating tablet Take 1 tablet (4 mg total) by mouth every 8 (eight) hours as needed 02/06/2024 02/19/2024 documented as of this encounter Historical Medications * This list may reflect changes made after this encounter. Medication Sig Dispense Quantity Refills Last Filled Start D ate End Date verapamil ER (VERELAN) 180 mg 24 hr capsule 02/13/2024 ondansetron ODT (ZOFRAN-ODT) 8 mg disintegrating tablet 02/12/2024 added in this encounter Care Teams Music Assistant Relationship Specialty Start Date End Date Jaden Thakur DO [address] [place] [address] [id number] PCP - General Family Medicine 06/01/23 documented as of this encounter
--- OUTSIDE RECORDS SUMMARY | 2024-03-19 20:52 | XMS_ITS | Encounter Summary ---
Author Organization [facility] Healthcare Address [address] [place] [address] Care Team Providers Care Service Captain Name Role Phone Jaden Thakur Primary Care Provide r Reason for Visit * MRI/CAT/PET Scan (Routine) - Closed Specialty Diagnoses / Procedures Referred By Contac t Referred To Contact Procedures Neuro CT Outside Reference Sly Morrison MD [address] [facility] [address] [place] [address] Phone: tel: fax: Referral ID Status Reason Start Date Expiration Date Visits Re quested Visits Authorized [id number] Closed 12/13/2023 01/11/2025 1 1 Encounter Details Date Type Department Care Team (Latest Contact Info) Description 12/13/2023 2:00 PM CDT - 12/13/2023 11:59 PM CDT Hospital Encounter [facility] [address] [place] [id number] Discharge Disposition: Discharge to home or self [...] on file 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 ??There will be no report generated by a [facility] Radiologist. Narrative [facility] - 12/13/2023 2:00 PM CDT EXAMINATION: ??Images For Reference Purposes Only us Sly Morrison MD IMG CT PROCEDURES Final Re sult RAD_PACS_[facility] documented in this encounter Visit Diagnoses Not on filedocumented in this encounter Care Teams Service Captain Relationship Specialty Start Date End Date Jaden Thakur DO [address] [place] [id number] PCP - General Family Medicine 06/01/23 documented as of this encounter
--- OUTSIDE RECORDS SUMMARY | 2024-03-19 20:52 | XMS_ITS | Encounter Summary ---
Author Organization [facility] Healthcare Address [address] [place] [address] Care Team Providers Care Excel Specialist Name Role Phone Jaden Thakur Primary Care Provide r Reason for Visit * MRI/CAT/PET Scan (Routine) - Closed Specialty Diagnoses / Procedures Referred By Contac t Referred To Contact Procedures Neuro CT Outside Reference Sly Morrison MD [address] [facility] [address] [place] [address] Phone: tel: fax: Referral ID Status Reason Start Date Expiration Date Visits Re quested Visits Authorized [id number] Closed 12/13/2023 01/11/2025 1 1 Encounter Details Date Type Department Care Team (Latest Contact Info) Description 12/13/2023 2:08 PM CDT - 12/13/2023 11:59 PM CDT Hospital Encounter [facility]iology [facility] [address] [place] [id number] Discharge Disposition: Discharge to home or self [...] on file 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 Radiology. ??There will be no report generated by a [facility] Radiologist. Narrative [facility] - 12/13/2023 2:08 PM CDT EXAMINATION: ??Images For Reference Purposes Only us Sly Morrison MD IMG CT PROCEDURES Final Re sult RAD_PACS_[facility] documented in this encounter Visit Diagnoses Not on filedocumented in this encounter Care Teams Excel Specialist Relationship Specialty Start Date End Date Jaden Thakur DO [address] [place] [id number] PCP - General Family Medicine 06/01/23 documented as of this encounter
--- OUTSIDE RECORDS SUMMARY | 2024-03-19 20:52 | XMS_ITS | Encounter Summary ---
Author Organization [facility] Address [address] [place] [address] Phone Care Team Providers Care Collar Tacker Name Role Phone Jaden Thakur Primary Care Provide r Encounter Details Date Type Department Care Team (Late st Contact Info) Description 12/12/2023 Telephone [facility] Cardiology [address] [facility] 8th [place] [address] [place] [address] Tamir Jenkins MD [address] [facility] [address] [place] [address] Social History Tobacco Use Types Packs/Day Years [...] on file 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 Pt stated that she is having No chest pains, SOB or other cardiac symptoms . Informed pt that she is cleared for surgery from Cardiac Standpoint * Telephone Encounter - Pooja Garsia - 12/12/2023 1:31 PM CDT cardiac clearance CALLER NAME:Ana FACILITY NAME: Dr. Yoon's office PHONE NUMBER: [phone] ask for Ana Metcalf FAX NUMBER: [phone] TYPE OF SURGERY: Left Shoulder Orthoscopy NAME OF SURGEON: Dr. Yoon's Office SCHEDULED FOR: pending MEDICATION TO BE HELD: FOR DAYS COMMENTS: documented in this encounter Plan of Treatment Not on file documented as of this encounter Visit Diagnoses Not on filedocumented in this encounter Care Teams Collar Tacker Relationship Specialty Start Date End Date Jaden Thakur DO [address] [place] [id number] PCP - General Family Medicine 06/01/23 documented as of this encounter
--- OUTSIDE RECORDS SUMMARY | 2024-03-19 20:52 | XMS_ITS | Encounter Summary ---
Author Organization [facility] Healthcare Address [address] [place] [address] Care Team Providers Care Cullet Washer Name Role Phone Jaden Thakur Primary Care Provide r Reason for Visit * MRI/CAT/PET Scan (Routine) - Closed Specialty Diagnoses / Procedures Referred By Contac t Referred To Contact Procedures Neuro MR Outside Reference Sly Morrison MD [address] 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 ??There will be no report generated by a [facility] Radiologist. Narrative [facility] - 12/13/2023 2:10 PM CDT EXAMINATION: ??Images For Reference Purposes Only us Sly Morrison MD IMG MRI PROCEDURES Final R esult [facility] documented in this encounter Visit Diagnoses Not on filedocumented in this encounter Care Teams Cullet Washer Relationship Specialty Start Date End Date Jaden Thakur DO [address] [place] [id number] PCP - General Family Medicine 06/01/23 documented as of this encounter
--- OUTSIDE RECORDS SUMMARY | 2024-03-19 20:52 | XMS_ITS | Encounter Summary ---
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
--- OUTSIDE RECORDS SUMMARY | 2024-03-19 20:52 | XMS_ITS | Referral Summary ---
Author Organization [address] Address [address] [place] [address] [address] [place] [address] Care Team Providers Care Outside Sales Manager Name Role Phone Jaden Thakur DO Primary Care Provide r Encounters Date Type Department Care Team Description 03/16/2024 2:20 PM SHIP PAINTER HELPER - Present Hospital Encounter [facility] [address] [place] [phone] Bobby Cardona MD [place], MD [place] Chris Michael, MD Septic shock (HCC) (Primary Dx); Peritonitis (HCC) 02/19/2024 10:57 AM SHIP PAINTER HELPER - 02/19/2024 11:59 PM SHIP PAINTER HELPER Hospital Encounter [facility] at the [facility] [address] [place] [address] Jacques Acevedo MD Myalgia (Primary Dx); Chronic left hip pain; Tendinopathy of left rotator cuff Discharge Disposition: Discharge to home or self care 02/18/2024 Orders Only [facility] Cardiology [address] [facility] Medical Office Building [address] [place] [phone] Angelica Cochran MD 02/14/2024 Telephone [facility] [address] [place] [address] [address] [place] [address] Jacques Acevedo MD PMC Preprocedure 02/12/2024 8:54 AM SHIP PAINTER HELPER - 02/12/2024 11:59 PM SHIP PAINTER HELPER Hospital Encounter [facility] [address] [facility] [address] [place] [id number] Jacques Acevedo MD Chronic left hip pain (Primary Dx); Hemiparesis affecting left side as late effect of cerebrovascular accident (CMS/HCC) (HCC); Chronic left shoulder pain; 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 Discharge Disposition: Discharge to home or self care 02/11/2024 8:13 PM SHIP PAINTER HELPER - 02/12/2024 1:16 AM [facility] Emergency [facility] Emergency Department [address] [place] [address] Nicanor Swanson Jr., MD Nausea, vomiting and diarrhea (Primary Dx); Dehydration; History of CVA (cerebrovascular accident) Discharge Disposition: Discharge to home or self care 02/03/2024 Patient Self-Triage [facility] [address] [place] [id number] Mychart, Generic Provider 01/17/2024 Orders Only [facility] Cardiology [address] [facility] Medical Office Building [address] [place] [phone] Angelica Cochran MD 01/11/2024 10:20 AM CDT Office Visit [facility] Stroke [address] [facility] [address] [place] [phone] Boo Bruner NP Cerebrovascular accident (CVA) due to thrombosis of right middle cerebral artery (HCC) (Primary Dx); Hemiparesis affecting left side as late effect of cerebrovascular accident (CVA) (CMS/HCC) (HCC); Spastic hemiparesis of left nondominant side as late effect of cerebrovascular disease (CMS/HCC) (HCC) 01/07/2024 1:50 PM CDT E-Visit [facility] Medical Group [address] [phone] Oksana Wills NP Your Medications 01/07/2024 Patient Self-Triage [facility] [address] [place] [address] Mychart, Generic Provider 01/01/2024 10:00 AM CDT Office Visit [facility] Orthopedic and Sports Medicine [facility] [place] [address] Shruti Pendleton PA Chronic left shoulder pain (Primary Dx); Hemiparesis affecting left side as late effect of cerebrovascular accident (CMS/HCC) (HCC); 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 12/18/2023 10:45 AM CDT Ancillary Procedure [facility] [address] [facility] [address] [place] [address] Presence of electronic cardiac device (Primary Dx); Cryptogenic stroke (HCC) from Last 3 Months Allergies Active Allergy Reactions Criticality Noted Date Comments Latex Rash,Other (See comments) Medium 04/10/2019 Vancomycin Other (See comments) Low 12/22/2022 High fevers Medications cetirizine 10 mg tablet,disintegra ting Take 10 mg by mouth nightly Suspended cholecalciferol 25 mcg (1,000 unit) tablet 2 tablets (2,000 Units total) daily 12/15/19 23 Suspended cyclobenzaprine (FLEXERIL) 5 mg tablet Take 1 tablet (5 mg total) by mouth 3 (three) times a day 12/15/[address] (CYMBALTA) 60 mg capsule Take 1 capsule (60 mg total) by mouth daily 02/16/20 23 Suspended metoprolol tartrate (LOPRESSOR) 25 mg immediate release tablet Take 1 tablet (25 mg total) by mouth 2 (two) times a day 12/15/[address] (PROTONIX) 40 mg EC tablet Take 1 tablet (40 mg total) by mouth daily 03/21/19 24 Suspended polyethylene glycol (MIRALAX) 17 gram packet 1 packet (17 g total) 2 (two) times a day as needed 12/15/19 23 Suspended busPIRone (BUSPAR) 5 mg tablet Take 1 tablet (5 mg total) by mouth 2 (two) times a day 06/29/19 24 Suspended HYDROcodone-aceta minophen (NORCO) 10-325 mg per tablet Take 1 tablet by mouth every 6 (six) hours as needed 06/12/19 24 Suspended verapamil SR (CALAN SR) 120 mg CR tablet Take 1 tablet (120 mg total) by mouth nightly 2023 Discontinued levETIRAcetam (KEPPRA) 1,000 mg tablet Take 1.5 tablets (1,500 mg total) by mouth 2 (two) times a day 270 tablet 1 10/21/19 24 Suspended LORazepam (ATIVAN) 0.5 mg tabletIndications :seizure Take 1 tablet (0.5 mg total) by mouth 2 (two) times a day for 5 doses 5 tablet 10/21/19 24 Suspended betamethasone dipropionate (DEL-BETA) 0.05 % cream Apply topically 2 (two) times a day 11/13/19 24 2024 Discontinued(T herapy completed) hydrOXYzine (ATARAX) 25 mg tablet Take 1 tablet (25 mg total) by mouth every 8 (eight) hours as needed 09/26/19 24 Suspended metaxalone (SKELAXIN) 800 mg tablet 11/14/19 24 2024 Discontinued(T herapy completed) ubrogepant (UBRELVY) 100 mg tablet Take 1 tablet (100 mg total) by mouth 2 (two) times a day as needed 11/21/19 24 Suspended aspirin 81 mg enteric coated tablet Take 1 tablet (81 mg total) by mouth daily Suspended fluconazole (Diflucan) 150 mg tablet 1 tablet, one time only, may repeat once after 4 days 2 tablet 02/03/20 24 Suspended cefdinir (OMNICEF) 300 mg capsule Take 1 capsule (300 mg total) by mouth 2 (two) times a day for 10 days 20 capsule 02/11/20 24 2023 phenazopyridine (PYRIDIUM) 200 mg tablet Take 1 tablet (200 mg total) by mouth 2 (two) times a day 10 tablet 02/11/20 24 Suspended baclofen (LIORESAL) 10 mg tablet Take 1 tablet (10 mg total) by mouth daily 01/30/20 24 Suspended ondansetron ODT (ZOFRAN-ODT) 4 mg disintegrating tablet Take 1 tablet (4 mg total) by mouth every 8 (eight) hours as needed 02/06/20 24 2023 Discontinued ondansetron ODT (ZOFRAN-ODT) 8 mg disintegrating tablet 02/12/20 24 Suspended verapamil ER (VERELAN) 180 mg 24 hr capsule 02/13/20 24 Suspended Active Problems Problem Noted Date Diagnosed Date History of hysterectomy 03/19/2024 Assessment & Plan (03/19/2024 12:05 PM SHIP PAINTER HELPER): 03/13/2024 OSH MIS hysterectomy for significant menorrhagia with a repaired enterotomy ---will follow up surgical pathology Septic shock 03/17/2024 Assessment & Plan (03/18/2024 2:13 PM SHIP PAINTER HELPER): Admitted through ED with lactate level 6.9>4.6>3.4>1.4 Resuscitated with IVF and lactate improved over time. BP improved slowly / HDS, however remains mildly tachycardic with HR 110's. Home metoprolol changed to IV and started. / HDS, remains mildly tachycardic. RESOLVED Ileus, postoperative (CMS/HCC) 03/17/2024 Assessment & Plan (03/19/2024 11:59 AM SHIP PAINTER HELPER): Minimally invasive hysterectomy for significant menorrhagia with a repaired enterotomy on 03/13/24 and now p/w abdominal pain. -CT demonstrates extraluminal fluid and gas with dilated jejunum proximal to that area and decompressed bowel distal to it. Repeat CT with PO contrast without e/o extraluminal extravasation;. NG to LIS IV hydration continued and 1L NS bolus given. Repeat CT abdomen/pelvis shows persistently dilated loops of small bowel, with enteric contrast seen just distal to the previously queried transition point after 90 minutes. This is favored to represent a focal ileus, less likely a low-grade obstruction with mass effect from the adjacent extraluminal poorly organized fluid collections containing locules of gas which may be postoperative. There is however no evidence of extraluminal contrast or high grade bowel obstruction. Small volume intraperitoneal free fluid with high density material compatible with postoperative blood products. -lap sites with derma carter, clean, no signs of infection. Abdomen soft, distended, TTP diffusely. 1/7 Lap sites clean with derma carter, no signs of infection. Abdomen remains distended and slightly TTP. NG self discontinued overnight. Replaced this morning to LIS. NG in good position. Green drainage. KUB decubitus view, no pneumoperitoneum. + BM today. Up to chair with full assist 03/[address], 650 mL output/24h, clamp trial-> Quadrantanopsia, left 12/17/2023 Assessment & Plan (12/18/2023 4:11 PM CDT): 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 No EOM deficits on exam and acuity is good. Pt has underwent extensive follow up in OT/PT and with an stitching machine setter at [facility] for prism therapy. No further intervention warranted at present. Counseled regarding fall risk. F/u Seizure 10/15/2023 Seizure disorder (CMS/HCC) 09/25/2023 Assessment & Plan (03/18/2024 2:20 PM SHIP PAINTER HELPER): With CVA in 2022 she underwent a hemicraniectomy with bone flap removal. Replace in separate surgery and was placed on keppra for seizure precaution. She was on keppra for about 6 months and tried to wean off but had a seizure. 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 -Home medication: Keppra 1500 mg BID -IV surrogate started while NPO. 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 It is unclear the etiology of her stroke. The [facility] medication 12/14/2022 note says that she had M1 occlusion cleared by mechanical thrombectomy. 03/[address] [facility] shows no new large acute territory infarct and no acute intracranial hemorrhage. 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 -home medications: keppra 1500 mg BID, Baclofen, flexeril and ativan ASA 81 mg daily -Keppra resumed IV and all others op hold 03/17 reports her slurred speech is new, however the left sided weakness is chronic. -Neurology consulted: Dysarthria. Expect that this should improve with resolution of ileus/acute illness. If dysarthria does not improve in 48-72 hours, can consider brain MRI to evaluate for new neurologic insult. No change in antiepileptic medication at this time. Avoid polypharmacy where possible and minimize WOOD SETTER depressant medications except as needed for pain control (e.g., benzodiazepines, anticholinergic medications). 03/18 Full function of RLE returned. Slight left facial drop- patient states baseline. Confused and had hallucinations overnight. Possibly the dilaudid vs delirium. Contact Neurology if symptoms worsen. Ask about brain MRI in 48-72 hours. 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 Left-sided sensory deficit present 10/19/2022 Elevated fasting glucose 11/07/2019 GERD (gastroesophageal reflux disease) 0 Assessment & Plan (03/17/2024 4:26 PM SHIP PAINTER HELPER): Home medication: pantoprazole 40 mg daily -IV Pantoprazole started. Seasonal allergies 04/10/2019 Social History Tobacco Use Types Packs/Day Years [...] making you feel afraid or unsafe? Denies 03/16/2024 Comments No Sex and Gender Information Value Date Recorded Sex Assigned at Not on file Legal Sex Female 10:05 AM SHIP PAINTER HELPER Gender Identity Not on file Sexual Orientation Not on file Last Filed Vital Signs Vital Sign Reading Time Taken Comments Blood Pressure 132/74 03/19/2024 8:14 PM SHIP PAINTER HELPER Pulse 97 03/19/2024 8:14 PM SHIP PAINTER HELPER Temperature 36.7 ??C (98.1 ??F) 03/19/2024 8:10 PM CS T Respiratory Rate 16 03/19/2024 8:10 PM SHIP PAINTER HELPER Oxygen Saturation 95% 03/19/2024 8:10 PM SHIP PAINTER HELPER Inhaled Oxygen Concentration - - Weight 102.2 kg (225 lb 5 oz) 03/19/2024 9:33 AM SHIP PAINTER HELPER Height 162.6 cm (5' 4.02 ) 03/19/2024 9:33 AM CS T Body Mass Index 38.66 03/19/2024 9:33 AM SHIP PAINTER HELPER Plan of Treatment Not on file Goals Goal Patient Goal Type Associated Problems Recent Progress Patient-Stated? Author CCM Chronic Pain Care Plan Chronic Care Management On track(2023 11:07 AM SHIP PAINTER HELPER) No Gianna Chairez RN Note: Problem: Chronic Pain Goals: 1. Minimize further functional decline 2. Maximize quality of life 3. Control pain Strategies: - Activity/exercise program recommendation - Conservative stepwise pain medicine strategy with multi-disciplinary approach - Recommend healthy lifestyle strategies and compensatory methods as needed Medical Devices Implanted Type Area Sales Executive Insurance Device Identifier Shelf Expiration Date Model / Serial / Lot Pixelated Monitor Lux-Dx Ii Insertable [employer] [id number] - [id number] - [id number] Implanted:Qty : 1 on 12/03/2023 by Angelica Cochran MD at [facility] Implantable Loop Recorder Left: Chest Pixelated 02/22/2025 [id number] / [id number] / Procedures * The patient is currently admitted. The information in this section might not be complete until the patient is discharged. Procedure Name Priority Date/Time Associated Diagnosis Comments MRI BRAIN W WO CONTRAST ED Urgent/IP Urgent 03/19/2024 12:21 PM SHIP PAINTER HELPER EGFR Routine 03/19/2024 1:59 AM SHIP PAINTER HELPER CBC WITHOUT DIFFERENTIAL Routine 03/19/2024 1:59 AM SHIP PAINTER HELPER PHOSPHORUS Routine 03/19/2024 1:59 AM SHIP PAINTER HELPER MAGNESIUM Routine 03/19/2024 1:59 AM SHIP PAINTER HELPER BASIC METABOLIC PANEL Routine 03/19/2024 1:59 AM SHIP PAINTER HELPER XR ABDOMEN AP 1 VIEW IP Routine 03/18/2024 11:45 AM SHIP PAINTER HELPER HEPATIC FUNCTION PANEL STAT 03/18/2024 10:08 AM SHIP PAINTER HELPER EGFR Routine 03/17/2024 9:03 PM SHIP PAINTER HELPER PROTIME-INR Routine 03/17/2024 9:03 PM SHIP PAINTER HELPER CBC WITHOUT DIFFERENTIAL Routine 03/17/2024 9:03 PM SHIP PAINTER HELPER PHOSPHORUS Routine 03/17/2024 9:03 PM SHIP PAINTER HELPER MAGNESIUM Routine 03/17/2024 9:03 PM SHIP PAINTER HELPER BASIC METABOLIC PANEL Routine 03/17/2024 9:03 PM SHIP PAINTER HELPER XR ABDOMEN AP 1 VIEW Timed 03/17/2024 5:30 AM SHIP PAINTER HELPER APTT Routine 03/17/2024 4:38 AM SHIP PAINTER HELPER PROTIME-INR Routine 03/17/2024 4:38 AM SHIP PAINTER HELPER LACTATE Routine 03/17/2024 4:38 AM SHIP PAINTER HELPER POTASSIUM, WHOLE BLOOD STAT 03/17/2024 12:34 AM SHIP PAINTER HELPER EGFR Routine 03/16/2024 10:49 PM SHIP PAINTER HELPER DIFFERENTIAL AUTO STAT 03/16/2024 10: 49 PM SHIP PAINTER HELPER APTT STAT 03/16/2024 10:49 PM SHIP PAINTER HELPER PROTIME-INR STAT 03/16/2024 10:49 PM SHIP PAINTER HELPER COMPREHENSIVE METABOLIC PANEL Routine 03/16/2024 10:49 PM SHIP PAINTER HELPER CBC WITH AUTO DIFFERENTIAL STAT 03/16/2024 10:[address] ABDOMEN PELVIS WO CONTRAST ED 03/16/2024 10:13 PM SHIP PAINTER HELPER SEPSIS LACTATE WITH REFLEX Timed 03/16/2024 7:46 PM SHIP PAINTER HELPER TRANSFUSE PLASMA Timed 03/16/2024 5:05 PM SHIP PAINTER HELPER XR ABDOMEN AP 1 VIEW ED Urgent/IP Urgent 03/16/2024 5:04 PM SHIP PAINTER HELPER CRITICAL RESULT CALLBACK CHEMISTRY Timed 03/16/2024 4:40 PM SHIP PAINTER HELPER SEPSIS LACTATE WITH REFLEX Timed 03/16/2024 4:40 PM SHIP PAINTER HELPER PREPARE PLASMA Timed 03/16/2024 4:27 PM SHIP PAINTER HELPER BLOOD CULTURE STAT 03/16/2024 3:28 PM SHIP PAINTER HELPER AZ CRITICAL CARE ILL/INJURED PATIENT INIT 30-74 MIN Routine 03/16/2024 3:[address] ABDOMEN PELVIS W CONTRAST ED 03/16/2024 3:[address] HEAD WO CONTRAST ED 03/16/2024 3 :10 PM SHIP PAINTER HELPER URINALYSIS AND REFLEX TO MICROSCOPIC AND CULTURE STAT 03/16/2024 3:05 PM SHIP PAINTER HELPER B CHECK SAMPLE STAT 03/16/2024 2:55 PM SHIP PAINTER HELPER BLOOD CULTURE STAT 03/16/2024 2:55 PM SHIP PAINTER HELPER CRITICAL RESULT CALLBACK CHEMISTRY STAT 03/16/2024 2:53 PM SHIP PAINTER HELPER SEPSIS LACTATE WITH REFLEX STAT 03/16/2024 2:53 PM SHIP PAINTER HELPER ECG 12-LEAD Routine 03/16/2024 2:47 PM SHIP PAINTER HELPER EGFR STAT 03/16/2024 2:43 PM SHIP PAINTER HELPER DIFFERENTIAL AUTO STAT 03/16/2024 2:4 3 PM SHIP PAINTER HELPER FIBRINOGEN STAT 03/16/2024 2:43 PM SHIP PAINTER HELPER TYPE AND SCREEN STAT 03/16/2024 2:43 PM SHIP PAINTER HELPER PROTIME-INR STAT 03/16/2024 2:43 PM SHIP PAINTER HELPER COMPREHENSIVE METABOLIC PANEL STAT 03/16/2024 2:43 PM SHIP PAINTER HELPER CBC WITH AUTO DIFFERENTIAL STAT 03/16/2024 2:43 PM SHIP PAINTER HELPER PAIN MGMT IMAGING TRIGGER POINT INJ 1-2 MUSCLE GROUPS Schedule Routine, Read Routine (OP Routine) 02/19/2024 12:16 PM SHIP PAINTER HELPER Chronic left hip pain DEVICE CHECK - REMOTE Routine 02/18/2024 2:12 AM SHIP PAINTER HELPER TROPONIN T HIGH-SENSITIVITY 2-HOUR Timed 02/11/2024 10:[address] ABDOMEN PELVIS W CONTRAST ED 02/11/2024 10:[address] HEAD WO CONTRAST ED 02/11/2024 1 0:16 PM SHIP PAINTER HELPER EGFR STAT 02/11/2024 7:51 PM SHIP PAINTER HELPER DIFFERENTIAL AUTO STAT 02/11/2024 7:5 1 PM SHIP PAINTER HELPER TROPONIN T HIGH-SENSITIVITY SERIES (BASELINE, 2HR, 4HR, 6HR) STAT 02/11/2024 7:51 PM SHIP PAINTER HELPER LIPASE STAT 02/11/2024 7:51 PM SHIP PAINTER HELPER COMPREHENSIVE METABOLIC PANEL STAT 02/11/2024 7:51 PM SHIP PAINTER HELPER CBC WITH AUTO DIFFERENTIAL STAT 02/11/2024 7:51 PM SHIP PAINTER HELPER POCT HCG, URINE Routine 02/11/2024 7:49 PM SHIP PAINTER HELPER URINALYSIS, MICROSCOPIC ONLY STAT 02/11/2024 7:49 PM SHIP PAINTER HELPER URINE CULTURE STAT 02/11/2024 7:49 PM SHIP PAINTER HELPER URINALYSIS AND REFLEX TO MICROSCOPIC AND CULTURE STAT 02/11/2024 7:49 PM SHIP PAINTER HELPER ECG 12-LEAD STAT 02/11/2024 7:26 PM SHIP PAINTER HELPER DEVICE CHECK - REMOTE Routine 01/17/2024 1:17 PM SHIP PAINTER HELPER DEVICE CHECK - IN OFFICE Routine 12/18/2023 10:29 AM CDT Cryptogenic stroke (HCC) from Last 3 Months Results * MRI Brain W WO Contrast (03/19/2024 12:21 PM SHIP PAINTER HELPER) Anatomical Region Laterality Modality Head and Neck N/A Magnetic Resonan ce 03/19/2024 1:42 PM SHIP PAINTER HELPER Impressions 03/19/2024 5:15 PM SHIP PAINTER HELPER 1. ??No acute intracranial findings. 2. ??Postsurgical changes from right frontoparietotemporal craniotomy with extensive encephalomalacia/gliosis in the right frontoparietal temporal lobes/right middle cerebral artery territory from prior infarct. 3. ??Redemonstrated small chronic infarcts in the left frontotemporal lobes. Dictated by: Agnes Olmos, DO The radiology attending physician has personally reviewed this study, and had reviewed and/or edited this written report and agrees with it. Electronically signed by: Amy Becker M.D., Ph.D. Narrative 03/19/2024 5:15 PM SHIP PAINTER HELPER EXAMINATION: Magnetic resonance imaging (MRI) of the brain and brainstem without and with contrast HISTORY: 43-year-old female with mental status change. Minimally invasive hysterectomy for significant menorrhagia with a repaired enterotomy on 03/13/24 and now p/w abdominal pain. ?? Reported history of CVA status post hemicraniectomy with bone flap removal in 2022. TECHNIQUE: Multiplanar multi-weighted MRI of the brain and brainstem was performed without and with intravenous contrast using the general brain protocol. Contrast information: 20 mL Gadoterate Meglumine COMPARISON: CT head without contrast dated 03/16/2024. ??MRI brain dated 11/09/2022 FINDINGS: Postsurgical changes from right frontoparietotemporal craniotomy. Since prior MRI 11/09/2022, there has been interval placement of a bone flap at the craniectomy site. ??There is extensive encephalomalacia/gliosis in the right frontoparietal temporal lobes/right middle cerebral artery territory from prior infarct with associated ex vacuo dilation of the right lateral ventricle. ??There is associated wallerian degeneration along the right corticospinal tract. There is decreased enhancement of the infarct compared to 11/09/2022. ??There is some associated hemosiderin deposition. Redemonstrated small chronic infarcts in the left frontotemporal lobes. Diffusion weighted images reveal no hyperintensities to suggest acute cerebral infarction. ??No evidence of hydrocephalus. The superior sagittal sinus demonstrates normal venous flow. The corpus callosum is normal in shape and signal intensity. The posterior fossa is unremarkable. The pituitary and sella are normal. The craniocervical junction is unremarkable. The paranasal sinuses are aerated. The visualized portions of the mastoids are unremarkable. The orbits appear normal. Normal flow voids are demonstrated in the carotid arteries and basilar artery. Procedure Note Amy Becker MD PhD - 03/19/2024 EXAMINATION: Magnetic resonance imaging (MRI) of the brain and brainstem without and with contrast HISTORY: 43-year-old female with mental status change. Minimally invasive hysterectomy for significant menorrhagia with a repaired enterotomy on 03/13/24 and now p/w abdominal pain. Reported history of CVA status post hemicraniectomy with bone flap removal in 2022. TECHNIQUE: Multiplanar multi-weighted MRI of the brain and brainstem was performed without and with intravenous contrast using the general brain protocol. Contrast information: 20 mL Gadoterate Meglumine COMPARISON: CT head without contrast dated 03/16/2024. MRI brain dated 11/09/2022 FINDINGS: Postsurgical changes from right frontoparietotemporal craniotomy. Since prior MRI 11/09/2022, there has been interval placement of a bone flap at the craniectomy site. There is extensive encephalomalacia/gliosis in the right frontoparietal temporal lobes/right middle cerebral artery territory from prior infarct with associated ex vacuo dilation of the right lateral ventricle. There is associated wallerian degeneration along the right corticospinal tract. There is decreased enhancement of the infarct compared to 11/09/2022. There is some associated hemosiderin deposition. Redemonstrated small chronic infarcts in the left frontotemporal lobes. Diffusion weighted images reveal no hyperintensities to suggest acute cerebral infarction. No evidence of hydrocephalus. The superior sagittal sinus demonstrates normal venous flow. The corpus callosum is normal in shape and signal intensity. The posterior fossa is unremarkable. The pituitary and sella are normal. The craniocervical junction is unremarkable. The paranasal sinuses are aerated. The visualized portions of the mastoids are unremarkable. The orbits appear normal. Normal flow voids are demonstrated in the carotid arteries and basilar artery. IMPRESSION: 1. No acute intracranial findings. 2. Postsurgical changes from right frontoparietotemporal craniotomy with extensive encephalomalacia/gliosis in the right frontoparietal temporal lobes/right middle cerebral artery territory from prior infarct. 3. Redemonstrated small chronic infarcts in the left frontotemporal lobes. Dictated by: Agnes Olmos, DO The radiology attending physician has personally reviewed this study, and had reviewed and/or edited this written report and agrees with it. Electronically signed by: Amy Becker M.D., Ph.D. us Jackelyn Larsen NP IMG MRI PROCEDURES Final R esult * eGFR (03/19/2024 1:59 AM SHIP PAINTER HELPER) eGFR >90 >=60 mL/min/1. 73 m2 Comment: Interpretive Data Reference Interval Normal ?>/= 90 mL/min/1.73m2 Mildly decreased* ? 60 - 89 mL/min/1.73m2 Mildly to moderately decreased ?45 - 59 mL/min/1.73m2 Moderately to severely decreased ??30 - 44 mL/min/1.73m2 Severely decreased ?15 - 29 mL/min/1.73m2 Kidney Failure ?< 15 ??mL/min/1.73m2 *Relative to young adult level Estimated glomerular filtration rate is determined by the 2020 CKD-EPI equation recommended by the National Kidney Foundation (A Unifying Approach to GFR Estimation: Recommendations of the NKF-ASK Task Force on Reassessing the Inclusion of Race in Diagnosing Kidney Disease, JASN 2020). The CKD-EPI equation should not be used for patients with unstable renal function and has not been validated in children and those over 70. Current interpretive data was last reviewed 2021. Blood 03/19/2024 1:59 AM SHIP PAINTER HELPER 03/19/2024 2:56 AM SHIP PAINTER HELPER us Jovanni Campos MD LAB BLOOD ORDERABLES Tia pérez Result [facility] [place] [address] * (ABNORMAL) CBC without differential (03/19/2024 1:59 AM SHIP PAINTER HELPER) Pathologist [facility] WBC 13.5(H) 3.8 - 9.9 K/cumm Hgb 10.4(L) 11.9 - 15.5 g/dL [facility] Hct 31.5(L) 35.6 - 45.5 % [facility] Plt 276 150 - 400 K/cumm [facility] MPV 11.3 9.1 - 12.3 fL [facility] RBC 3.42(L) 3.90 - 5.20 M/cumm [facility] MCV 92.1 81.3 - 96.4 fL [facility] MCH 30.4 27.1 - 33.3 pg [facility] MCHC 33.0 32.3 - 35.7 g/dL [facility] RDW CV 15.3(H) 11.1 - 14.9 % [facility] RDW SD 51.8(H) 35.7 - 48.1 fL [facility] NRBC abs 0.00 0.00 - 0.01 K/cumm [facility] Blood 03/19/2024 1:59 AM SHIP PAINTER HELPER 03/19/2024 2:56 AM SHIP PAINTER HELPER Jovanni Campos MD LAB BLOOD ORDERABLES Tia l Result Performing Organization Address [facility] de Phone Number [facility] [place] [address] * Phosphorus (03/19/2024 1:59 AM SHIP PAINTER HELPER) Pathologist [facility] Phosphorus, pl 2.7 2.3 - 4.5 mg/dL Blood 03/19/2024 1:59 AM SHIP PAINTER HELPER 03/19/2024 2:56 AM SHIP PAINTER HELPER Jovanni Campos MD LAB BLOOD ORDERABLES Tia l Result Performing Organization Address City/[facility] Co de Phone Number [facility] [place] [address] * Magnesium (03/19/2024 1:59 AM SHIP PAINTER HELPER) Pathologist [facility] Magnesium 2.0 1.4 - 2.5 mg/dL Blood 03/19/2024 1:59 AM SHIP PAINTER HELPER 03/19/2024 2:56 AM SHIP PAINTER HELPER Jovanni Campos MD LAB BLOOD ORDERABLES Tia l Result [facility] Department [place] [address] * (ABNORMAL) Basic metabolic panel (03/19/2024 1:59 AM SHIP PAINTER HELPER) Pathologist [facility] Sodium 145 135 - 145 mmol/L Potassium, pl 3.6 3.3 - 4.9 mmol/L [facility] Chloride 111(H) 97 - 110 mmol/L [facility] CO2 18(L) 22 - 32 mmol/L [facility] Anion gap 16(H) 2 - 15 mmol/L [facility] BUN 21 6 - 25 mg/dL [facility] Creatinine 0.52(L) 0.60 - 1.10 mg/dL [facility] Glucose 91 70 - 199 mg/dL [facility] Comment: Interpretive Data Fasting glucose >/= 126 mg/dl is diagnostic for diabetes. ?? Fasting is defined as no caloric intake for at least 8 hours. Fasting glucose between 100 mg/dl to 125 mg/dl is diagnostic of prediabetes. In a patient with classic symptoms of hyperglycemia or hyperglycemic crisis, a random glucose >/= 200 mg/dl is diagnostic for diabetes. In the absence of unequivocal hyperglycemia, results should be confirmed by repeat testing. The classification and Diagnosis of Diabetes Diabetes Care 2021; 46: S19-S40. Current interpretive data was last revised 2022. Calcium 7.8(L) 8.5 - 10.3 mg/dL [facility] Blood 03/19/2024 1:59 AM SHIP PAINTER HELPER 03/19/2024 2:56 AM SHIP PAINTER HELPER Jovanni Campos MD LAB BLOOD ORDERABLES Tia pérez Result [facility] Department [place] [address] * XR Abdomen Ap 1 Vw (03/18/2024 11:45 AM SHIP PAINTER HELPER) Anatomical Region Laterality Modality Body, Abdomen N/A Computed Radiogr aphy 03/18/2024 11:5 6 AM SHIP PAINTER HELPER Impressions 03/18/2024 12:02 PM SHIP PAINTER HELPER Gastric tube tip in the gastric body, side port around the gastroesophageal junction. ??No evidence of pneumoperitoneum. Cholecystectomy clips. Dictated by: Salinas Ni M.D. The radiology attending physician has personally reviewed this study, and had reviewed and/or edited this written report and agrees with it. Electronically signed by: Rukhsana Ramires M.D. Narrative 03/18/2024 12:02 PM SHIP PAINTER HELPER EXAMINATION: Abdomen, one view. HISTORY: Check tube placement, concern for free air COMPARISON: 03/17/2024 abdominal radiograph Procedure Note Rukhsana Ramires MD - 03/18/2024 EXAMINATION: Abdomen, one view. HISTORY: Check tube placement, concern for free air COMPARISON: 03/17/2024 abdominal radiograph IMPRESSION: Gastric tube tip in the gastric body, side port around the gastroesophageal junction. No evidence of pneumoperitoneum. Cholecystectomy clips. Dictated by: Salinas Ni M.D. The radiology attending physician has personally reviewed this study, and had reviewed and/or edited this written report and agrees with it. Electronically signed by: Rukhsana Ramires M.D. us Bree Muñoz PHYSICAL THERAPY SUPERVISOR IMG XR PROCEDURES Final Res ult * (ABNORMAL) Hepatic function panel (03/18/2024 10:08 AM SHIP PAINTER HELPER) Bilirubin, total 0.4 0.1 - 1.2 mg/dL Bilirubin, direct <0.2 0.1 - 0.3 mg/dL [facility] Protein, pl 5.5(L) 6.5 - 8.5 g/dL [facility] Albumin 2.3(L) 3.5 - 5.0 g/dL [facility] Alk phos 106 40 - 130 Units/L [facility] ALT 34 7 - 45 Units/L [facility] AST 41 10 - 45 Units/L [facility] Blood 03/18/2024 10:0 8 AM SHIP PAINTER HELPER 03/18/2024 10:26 AM SHIP PAINTER HELPER us Bree Muñoz PHYSICAL THERAPY SUPERVISOR LAB BLOOD ORDERABLES Final Result [facility] Department [place] [address] * eGFR (03/17/2024 9:03 PM SHIP PAINTER HELPER) eGFR >90 >=60 mL/min/1. 73 m2 Comment: Interpretive Data Reference Interval Normal ?>/= 90 mL/min/1.73m2 Mildly decreased* ? 60 - 89 mL/min/1.73m2 Mildly to moderately decreased ?45 - 59 mL/min/1.73m2 Moderately to severely decreased ??30 - 44 mL/min/1.73m2 Severely decreased ?15 - 29 mL/min/1.73m2 Kidney Failure ?< 15 ??mL/min/1.73m2 *Relative to young adult level Estimated glomerular filtration rate is determined by the 2020 CKD-EPI equation recommended by the National Kidney Foundation (A Unifying Approach to GFR Estimation: Recommendations of the NKF-ASK Task Force on Reassessing the Inclusion of Race in Diagnosing Kidney Disease, JASN 2020). The CKD-EPI equation should not be used for patients with unstable renal function and has not been validated in children and those over 70. Current interpretive data was last reviewed 2021. Blood 03/17/2024 9:03 PM SHIP PAINTER HELPER 03/17/2024 9:27 PM SHIP PAINTER HELPER us Jovanni Campos MD LAB BLOOD ORDERABLES Tia l Result Performing Organization Address [facility] Co de Phone Number [facility] Department [place] [address] * (ABNORMAL) Protime-INR (03/17/2024 9:03 PM SHIP PAINTER HELPER) Pathologist [facility] PT 22.0(H) 9.7 - 13.0 sec INR 2.01(H) 0.90 - 1.20 [facility] Comment: Interpretive data Oral anticoagulant therapeutic ranges: Venous thromboembolism prophylaxis or treatment: 2.0-3.0 CARDIOLOGY Standard range: 2.0-3.0 High-intensity range: 2.5-3.5 Refer to indication-specific guidelines for appropriate target ranges for prosthetic heart valve replacement. Current interpretive data was last revised on 2019. Blood 03/17/2024 9:03 PM SHIP PAINTER HELPER 03/17/2024 9:31 PM SHIP PAINTER HELPER us Bree Muñoz NP LAB BLOOD ORDERABLES Final Result Performing Organization Address [facility] Co de Phone Number [facility] [place] [address] * (ABNORMAL) CBC without differential (03/17/2024 9:03 PM SHIP PAINTER HELPER) Pathologist [facility] WBC 10.7(H) 3.8 - 9.9 K/cumm Hgb 11.3(L) 11.9 - 15.5 g/dL [facility] Hct 34.5(L) 35.6 - 45.5 % [facility] Plt 289 150 - 400 K/cumm [facility] MPV 11.0 9.1 - 12.3 fL [facility] RBC 3.72(L) 3.90 - 5.20 M/cumm [facility] MCV 92.7 81.3 - 96.4 fL [facility] MCH 30.4 27.1 - 33.3 pg [facility] MCHC 32.8 32.3 - 35.7 g/dL [facility] RDW CV 15.4(H) 11.1 - 14.9 % [facility] RDW SD 52.5(H) 35.7 - 48.1 fL [facility] NRBC abs 0.00 0.00 - 0.01 K/cumm [facility] Blood 03/17/2024 9:03 PM SHIP PAINTER HELPER 03/17/2024 9:27 PM SHIP PAINTER HELPER Jovanni Campos MD LAB BLOOD ORDERABLES Tia l Result Performing Organization Address [facility] Co de Phone Number [facility] [place] [address] * Phosphorus (03/17/2024 9:03 PM SHIP PAINTER HELPER) Phosphorus, pl 3.3 2.3 - 4.5 mg/dL Blood 03/17/2024 9:03 PM SHIP PAINTER HELPER 03/17/2024 9:27 PM SHIP PAINTER HELPER Jovanni Campos MD LAB BLOOD ORDERABLES Tia l Result Performing Organization Address City/[facility] Co de Phone Number [facility] [place] [address] * Magnesium (03/17/2024 9:03 PM SHIP PAINTER HELPER) Magnesium 2.3 1.4 - 2.5 mg/dL Blood 03/17/2024 9:03 PM SHIP PAINTER HELPER 03/17/2024 9:27 PM SHIP PAINTER HELPER Jovanni Campos MD LAB BLOOD ORDERABLES Tia l Result [facility] Department [place] [address] * (ABNORMAL) Basic metabolic panel (03/17/2024 9:03 PM SHIP PAINTER HELPER) Sodium 143 135 - 145 mmol/L Comment:Repeated and Verifie d Potassium, pl 4.0 3.3 - 4.9 mmol/L [facility] Chloride 107 97 - 110 mmol/L [facility] CO2 22 22 - 32 mmol/L [facility] Anion gap 14 2 - 15 mmol/L [facility] BUN 26(H) 6 - 25 mg/dL [facility] Creatinine 0.82 0.60 - 1.10 mg/dL [facility] Glucose 104 70 - 199 mg/dL [facility] Comment: Interpretive Data Fasting glucose >/= 126 mg/dl is diagnostic for diabetes. ?? Fasting is defined as no caloric intake for at least 8 hours. Fasting glucose between 100 mg/dl to 125 mg/dl is diagnostic of prediabetes. In a patient with classic symptoms of hyperglycemia or hyperglycemic crisis, a random glucose >/= 200 mg/dl is diagnostic for diabetes. In the absence of unequivocal hyperglycemia, results should be confirmed by repeat testing. The classification and Diagnosis of Diabetes Diabetes Care 202; 46: S19-S40. Current interpretive data was last revised 2022. Calcium 8.1(L) 8.5 - 10.3 mg/dL [facility] Blood 03/17/2024 9:03 PM SHIP PAINTER HELPER 03/17/2024 9:27 PM SHIP PAINTER HELPER us Jovanni Campos MD LAB BLOOD ORDERABLES Tia l Result [facility] Department [place] [address] * XR Abdomen Ap 1 Vw (03/17/2024 5:30 AM SHIP PAINTER HELPER) Anatomical Region Laterality Modality Body, Abdomen N/A Computed Radiogr aphy 03/17/2024 9:01 AM SHIP PAINTER HELPER Impressions 03/17/2024 9:04 AM SHIP PAINTER HELPER Gastric tube tip terminates in the gastric body, side port overlying the gastric fundus. ??Normal bowel gas pattern. Cholecystectomy clips overlie the right upper quadrant of the abdomen. ?? Loop recorder noted. Dictated by: Salinas iN M.D. The radiology attending physician has personally reviewed this study, and had reviewed and/or edited this written report and agrees with it. Electronically signed by: Amanda Polanco M.D. Narrative 03/17/2024 9:04 AM SHIP PAINTER HELPER EXAMINATION: Abdomen, one view. HISTORY: Assess oral contrast progression COMPARISON: 03/16/2024 abdominal radiograph Procedure Note Amanda Polanco MD - 03/17/2024 EXAMINATION: Abdomen, one view. HISTORY: Assess oral contrast progression COMPARISON: 03/16/2024 abdominal radiograph IMPRESSION: Gastric tube tip terminates in the gastric body, side port overlying the gastric fundus. Normal bowel gas pattern. Cholecystectomy clips overlie the right upper quadrant of the abdomen. Loop recorder noted. Dictated by: Salinas Ni M.D. The radiology attending physician has personally reviewed this study, and had reviewed and/or edited this written report and agrees with it. Electronically signed by: Amanda Polanco M.D. Jovanni Campos MD IMG XR PROCEDURES Final R esult * Lactate (03/17/2024 4:38 AM SHIP PAINTER HELPER) Lactate 1.4 0.7 - 2.0 mmol/L Blood 03/17/2024 4:38 AM SHIP PAINTER HELPER 03/17/2024 4:53 AM SHIP PAINTER HELPER Jovanni Campos MD LAB BLOOD ORDERABLES Tia l Result [facility] Department [place] [address] * (ABNORMAL) aPTT (03/17/2024 4:38 AM SHIP PAINTER HELPER) aPTT 22(L) 28 - 38 sec Comment: Repeated and verified - [id number] - 03/17/24, 5:50 AM Interpretive Data Heparin therapeutic range: 66.0 - 100.0 seconds. Range based on correlation with therapeutic heparin activity range of 0.3 - 0.7 Units/mL. Current interpretive data was last revised on 2022. Blood 03/17/2024 4:38 AM SHIP PAINTER HELPER 03/17/2024 5:02 AM SHIP PAINTER HELPER Jovanni Campos MD LAB BLOOD ORDERABLES Tia l Result Performing Organization Address [facility] Co de Phone Number [facility] [place] [address] * (ABNORMAL) Protime-INR (03/17/2024 4:38 AM SHIP PAINTER HELPER) PT 23.8(H) 9.7 - 13.0 sec Comment:Repeated and verifie d - [id number] - 03/17/24, 5:50 AM INR 2.17(H) 0.90 - 1.20 [facility] Comment: Repeated and verified - [id number] - 03/17/24, 5:50 AM Interpretive data Oral anticoagulant therapeutic ranges: Venous thromboembolism prophylaxis or treatment: 2.0-3.0 CARDIOLOGY Standard range: 2.0-3.0 High-intensity range: 2.5-3.5 Refer to indication-specific guidelines for appropriate target ranges for prosthetic heart valve replacement. Current interpretive data was last revised on 2019. Blood 03/17/2024 4:38 AM SHIP PAINTER HELPER 03/17/2024 5:02 AM SHIP PAINTER HELPER Jovanni Campos MD LAB BLOOD ORDERABLES Tia l Result Performing Organization Address [facility] Co de Phone Number [facility] [place] [address] * Potassium, whole blood (03/17/2024 12:34 AM SHIP PAINTER HELPER) Potassium, bld 4.7 3.3 - 4.9 mmol/L Blood 03/17/2024 12:3 4 AM SHIP PAINTER HELPER 03/17/2024 12:44 AM SHIP PAINTER HELPER us Richi Romero MD LAB BLOOD ORDERABLES F inal Result Performing Organization Address [facility] de Phone Number [facility] Department [place] [address] * (ABNORMAL) eGFR (03/16/2024 10:49 PM SHIP PAINTER HELPER) eGFR 47(L) >=60 mL/min/1. 73 m2 Comment: Interpretive Data Reference Interval Normal ?>/= 90 mL/min/1.73m2 Mildly decreased* ? 60 - 89 mL/min/1.73m2 Mildly to moderately decreased ?45 - 59 mL/min/1.73m2 Moderately to severely decreased ??30 - 44 mL/min/1.73m2 Severely decreased ?15 - 29 mL/min/1.73m2 Kidney Failure ?< 15 ??mL/min/1.73m2 *Relative to young adult level Estimated glomerular filtration rate is determined by the 2020 CKD-EPI equation recommended by the National Kidney Foundation (A Unifying Approach to GFR Estimation: Recommendations of the NKF-ASK Task Force on Reassessing the Inclusion of Race in Diagnosing Kidney Disease, JASN 2020). The CKD-EPI equation should not be used for patients with unstable renal function and has not been validated in children and those over 70. Current interpretive data was last reviewed 2021. Blood 03/16/2024 10:4 9 PM SHIP PAINTER HELPER 03/16/2024 11:03 PM SHIP PAINTER HELPER us Jean Banuelos MD LAB BLOOD ORDERABLES Tia l Result Performing Organization Address [facility] Co de Phone Number [facility] [place] [address] * (ABNORMAL) Differential, auto (03/16/2024 10:49 PM SHIP PAINTER HELPER) Neutrophil abs 6.2 1.5 - 6.5 K/cumm Imm gran abs 0.1 0.0 - 0.1 K/cumm [facility] Lymphocyte abs 0.6(L) 0.8 - 3.3 K/cumm [facility] Monocyte abs 0.2 0.2 - 0.8 K/cumm [facility] Eosinophil abs 0.1 0.0 - 0.5 K/cumm [facility] Basophil abs 0.1 0.0 - 0.1 K/cumm [facility] Neutrophil pct 86.0 % [facility] Comment: Confirmed by smear review Interpretive Data Percent cell count reference ranges are not reported, since discordance with absolute values may lead to misinterpretation of CBC data. Current Interpretive Data was last revised on 2017. Imm gran pct 1.7 % [facility] Comment: Interpretive Data Percent cell count reference ranges are not reported, since discordance with absolute values may lead to misinterpretation of CBC data. Current Interpretive Data was last revised on 2017. Lymphocyte pct 7.7 % [facility] Comment: Interpretive Data Percent cell count reference ranges are not reported, since discordance with absolute values may lead to misinterpretation of CBC data. Current Interpretive Data was last revised on 2017. Monocyte pct 2.8 % [facility] Comment: Interpretive Data Percent cell count reference ranges are not reported, since discordance with absolute values may lead to misinterpretation of CBC data. Current Interpretive Data was last revised on 2017. Eosinophil pct 0.8 % [facility] Comment: Interpretive Data Percent cell count reference ranges are not reported, since discordance with absolute values may lead to misinterpretation of CBC data. Current Interpretive Data was last revised on 2017. Basophil pct 1.0 % [facility] Comment: Interpretive Data Percent cell count reference ranges are not reported, since discordance with absolute values may lead to misinterpretation of CBC data. Current Interpretive Data was last revised on 2017. Blood 03/16/2024 10:4 9 PM SHIP PAINTER HELPER 03/16/2024 11:04 PM SHIP PAINTER HELPER Jean Banuelos MD LAB BLOOD ORDERABLES Tia elisa Result Performing Organization Address [facility] Co de Phone Number [facility] [place] [place] [address] * (ABNORMAL) CBC with auto differential (03/16/2024 10:49 PM SHIP PAINTER HELPER) Pathologist [facility] WBC 7.2 3.8 - 9.9 K/cumm Hgb 12.7 11.9 - 15.5 g/dL [facility] Hct 38.6 35.6 - 45.5 % [facility] Plt 287 150 - 400 K/cumm [facility] MPV 11.0 9.1 - 12.3 fL [facility] RBC 4.08 3.90 - 5.20 M/cumm [facility] MCV 94.6 81.3 - 96.4 fL [facility] MCH 31.1 27.1 - 33.3 pg [facility] MCHC 32.9 32.3 - 35.7 g/dL [facility] RDW CV 15.3(H) 11.1 - 14.9 % [facility] RDW SD 53.4(H) 35.7 - 48.1 fL [facility] NRBC abs 0.00 0.00 - 0.01 K/cumm [facility] Blood 03/16/2024 10:4 9 PM SHIP PAINTER HELPER 03/16/2024 11:04 PM SHIP PAINTER HELPER Jean Banuelos MD LAB BLOOD ORDERABLES Tia elisa Result Performing Organization Address [facility]/ZIP Co de Phone Number [facility] Department [place] [address] * aPTT (03/16/2024 10:49 PM SHIP PAINTER HELPER) Pathologist [facility] aPTT 30 28 - 38 sec Comment: Interpretive Data Heparin therapeutic range: 66.0 - 100.0 seconds. Range based on correlation with therapeutic heparin activity range of 0.3 - 0.7 Units/mL. Current interpretive data was last revised on 2022. Blood 03/16/2024 10:4 9 PM SHIP PAINTER HELPER 03/16/2024 11:11 PM SHIP PAINTER HELPER Jean Banuelos MD LAB BLOOD ORDERABLES Tia l Result Performing Organization Address [facility] de Phone Number [facility] Department [place] [address] * (ABNORMAL) Protime-INR (03/16/2024 10:49 PM SHIP PAINTER HELPER) PT 22.5(H) 9.7 - 13.0 sec INR 2.05(H) 0.90 - 1.20 [facility] Comment: Interpretive data Oral anticoagulant therapeutic ranges: Venous thromboembolism prophylaxis or treatment: 2.0-3.0 CARDIOLOGY Standard range: 2.0-3.0 High-intensity range: 2.5-3.5 Refer to indication-specific guidelines for appropriate target ranges for prosthetic heart valve replacement. Current interpretive data was last revised on 2019. Blood 03/16/2024 10:4 9 PM SHIP PAINTER HELPER 03/16/2024 11:11 PM SHIP PAINTER HELPER Jean Banuelos MD LAB BLOOD ORDERABLES Tia l Result Performing Organization Address [facility] Co de Phone Number [facility] [place] [address] * (ABNORMAL) Comprehensive metabolic panel (03/16/2024 10:49 PM SHIP PAINTER HELPER) Sodium 132(L) 135 - 145 mmol/L Potassium, pl See Comment 3.3 - 4.9 mmol/L [facility] Comment:Credited; Hemolyzed Specimen Chloride 103 97 - 110 mmol/L [facility] CO2 22 22 - 32 mmol/L [facility] Comment:Hemolyzed; result ma y be falsely decreased Anion gap 7 2 - 15 mmol/L [facility] BUN 30(H) 6 - 25 mg/dL [facility] Creatinine 1.44(H) 0.60 - 1.10 mg/dL [facility] Glucose 108 70 - 199 mg/dL [facility] Comment: Interpretive Data Fasting glucose >/= 126 mg/dl is diagnostic for diabetes. ?? Fasting is defined as no caloric intake for at least 8 hours. Fasting glucose between 100 mg/dl to 125 mg/dl is diagnostic of prediabetes. In a patient with classic symptoms of hyperglycemia or hyperglycemic crisis, a random glucose >/= 200 mg/dl is diagnostic for diabetes. In the absence of unequivocal hyperglycemia, results should be confirmed by repeat testing. The classification and Diagnosis of Diabetes Diabetes Care 2021; 46: S19-S40. Current interpretive data was last revised 2022. Calcium 8.2(L) 8.5 - 10.3 mg/dL [facility] Bilirubin, total 0.8 0.1 - 1.2 mg/dL [facility] Protein, pl 6.5 6.5 - 8.5 g/dL [facility] Comment:Hemolyzed; result ma y be falsely elevated Albumin 2.6(L) 3.5 - 5.0 g/dL [facility] Alk phos See Comment 40 - 130 Units/L [facility] Comment:Credited; Hemolyzed Specimen ALT See Comment 7 - 45 Units/L [facility] Comment:Credited; Hemolyzed Specimen AST See Comment 10 - 45 Units/L [facility] Comment:Credited; Hemolyzed Specimen Blood 03/16/2024 10:4 9 PM SHIP PAINTER HELPER 03/16/2024 11:03 PM SHIP PAINTER HELPER us Jean Banuelos MD LAB BLOOD ORDERABLES Tia pérez Result [facility] Department [place] [address] * CT Abdomen Pelvis WO Contrast (03/16/2024 10:13 PM SHIP PAINTER HELPER) Anatomical Region Laterality Modality Body N/A Computed Tomogra phy 03/16/2024 11:1 3 PM SHIP PAINTER HELPER Impressions 03/17/2024 6:35 AM SHIP PAINTER HELPER 1. ??Persistently dilated loops of small bowel, with enteric contrast seen just distal to the previously queried transition point after 90 minutes. ??This is favored to represent a focal ileus, less likely a low-grade obstruction with mass effect from the adjacent extraluminal poorly organized fluid collections containing locules of gas which may be postoperative. ??There is however no evidence of extraluminal contrast or high grade bowel obstruction. 2. ??Small volume intraperitoneal free fluid with high density material compatible with postoperative blood products. Dictated by: Pal Medina MD The radiology attending physician has personally reviewed this study, and had reviewed and/or edited this written report and agrees with it. Electronically signed by: Junior Lee M.D. Narrative 03/17/2024 6:35 AM SHIP PAINTER HELPER EXAMINATION: CT ABDOMEN PELVIS WO CONTRAST TECHNIQUE: ??Transaxial computed tomographic images of the abdomen pelvis were obtained without intravenous contrast according to the standard protocol 90 minutes after gastric administration of water-soluble contrast.. HISTORY: ??43 years-old Female with Bowel obstruction suspected. History of recent hysterectomy on 03/13/2024, complicated by enterotomy which was repaired. COMPARISON:Same-day CT FINDINGS: ?? There is mild basilar atelectasis. ??Heart size is normal. ??There is no pericardial effusion. Normal noncontrast appearance of the liver. ??Spleen is normal. Pancreas is normal. ??Adrenal glands are normal. ??There is excreted contrast in the kidneys. ??No hydronephrosis. ??Urinary bladder is decompressed by a Puentes catheter. ??The uterus is absent. ??There is no suspicious adnexal lesion. Gastric tube terminates in the stomach. ??There is oral contrast in the stomach and multiple loops of proximal small bowel, including multiple duodenal diverticula. ??Many of the loops of dilated small bowel are similar extent compared to prior measuring up to 3.8 cm, and come to taper in the left hemiabdomen adjacent to extraluminal fluid with small locules of gas. ??No extraluminal contrast is seen. Specifically there is no extraluminal contrast within the extraluminal fluid with small locules of extraluminal gas which appear to exert mild mass effect on the adjacent small bowel such as on series 2 image 129, secondary to a collection that measures 55 x 30 mm. ??There is an additional small fluid collection in the central mesentery on series 2 image 145 measuring 51 x 26 mm.. ??However a small amount of contrast is seen just distal to the previously queried transition point, such as contrast in the distal small bowel on series 2 image 176. ??The small bowel distal to this is relatively decompressed. ??There is stool in the colon. ??Similar-appearing small volume pelvic ascites with some higher density material which may represent peritoneal blood products with adjacent peritoneal thickening. No abdominal pelvic lymphadenopathy. ??There is mild diffuse body wall edema. ??There is obvious gas in the lower anterior abdominal wall which is likely related to recent endoscopic surgery. ??No suspicious osseous lesion. Procedure Note Junior Lee MD - 03/17/2024 EXAMINATION: CT ABDOMEN PELVIS WO CONTRAST TECHNIQUE: Transaxial computed tomographic images of the abdomen pelvis were obtained without intravenous contrast according to the standard protocol 90 minutes after gastric administration of water-soluble contrast.. HISTORY: 43 years-old Female with Bowel obstruction suspected. History of recent hysterectomy on 03/13/2024, complicated by enterotomy which was repaired. COMPARISON:Same-day CT FINDINGS: There is mild basilar atelectasis. Heart size is normal. There is no pericardial effusion. Normal noncontrast appearance of the liver. Spleen is normal. Pancreas is normal. Adrenal glands are normal. There is excreted contrast in the kidneys. No hydronephrosis. Urinary bladder is decompressed by a Puentes catheter. The uterus is absent. There is no suspicious adnexal lesion. Gastric tube terminates in the stomach. There is oral contrast in the stomach and multiple loops of proximal small bowel, including multiple duodenal diverticula. Many of the loops of dilated small bowel are similar extent compared to prior measuring up to 3.8 cm, and come to taper in the left hemiabdomen adjacent to extraluminal fluid with small locules of gas. No extraluminal contrast is seen. Specifically there is no extraluminal contrast within the extraluminal fluid with small locules of extraluminal gas which appear to exert mild mass effect on the adjacent small bowel such as on series 2 image 129, secondary to a collection that measures 55 x 30 mm. There is an additional small fluid collection in the central mesentery on series 2 image 145 measuring 51 x 26 mm.. However a small amount of contrast is seen just distal to the previously queried transition point, such as contrast in the distal small bowel on series 2 image 176. The small bowel distal to this is relatively decompressed. There is stool in the colon. Similar-appearing small volume pelvic ascites with some higher density material which may represent peritoneal blood products with adjacent peritoneal thickening. No abdominal pelvic lymphadenopathy. There is mild diffuse body wall edema. There is obvious gas in the lower anterior abdominal wall which is likely related to recent endoscopic surgery. No suspicious osseous lesion. IMPRESSION: 1. Persistently dilated loops of small bowel, with enteric contrast seen just distal to the previously queried transition point after 90 minutes. This is favored to represent a focal ileus, less likely a low-grade obstruction with mass effect from the adjacent extraluminal poorly organized fluid collections containing locules of gas which may be postoperative. There is however no evidence of extraluminal contrast or high grade bowel obstruction. 2. Small volume intraperitoneal free fluid with high density material compatible with postoperative blood products. Dictated by: Pal Medina MD The radiology attending physician has personally reviewed this study, and had reviewed and/or edited this written report and agrees with it. Electronically signed by: Junior Lee M.D. us Janene Rodriguez MD IMG CT PROCEDURES Final R esult * (ABNORMAL) Sepsis Lactate w/ Reflex (03/16/2024 7:46 PM SHIP PAINTER HELPER) Sepsis Lactate 3.4(H) 0.7 - 2.0 mmol/L Blood 03/16/2024 7:46 PM SHIP PAINTER HELPER 03/16/2024 7:52 PM SHIP PAINTER HELPER us Jean Bowden MD LAB BLOOD ORDERABLES Final Result [facility] Department [place] [address] * Transfuse plasma Standard plasma (03/16/2024 6:42 PM SHIP PAINTER HELPER) Blood Janene Rodriguez MD BLOOD TRANSFUSION ORDERAB LES Final Result [facility] [place] [address] * XR Abdomen Ap 1 Vw (03/16/2024 5:04 PM SHIP PAINTER HELPER) Anatomical Region Laterality Modality Body, Abdomen N/A Computed Radiogr aphy 03/16/2024 5:08 PM SHIP PAINTER HELPER Impressions 03/16/2024 5:27 PM SHIP PAINTER HELPER A gastric tube tip and side port overlie the gastric body. ??Excreted contrast is seen within the renal collecting systems from same day CT abdomen pelvis. Dictated by: True Horne MD The radiology attending physician has personally reviewed this study, and had reviewed and/or edited this written report and agrees with it. Electronically signed by: Yared Jang M.D. Narrative 03/16/2024 5:27 PM SHIP PAINTER HELPER EXAMINATION: Abdomen, one view. HISTORY: Check tube placement. COMPARISON: CT abdomen pelvis 03/16/2024 Procedure Note Yared Jang MD - 03/16/2024 EXAMINATION: Abdomen, one view. HISTORY: Check tube placement. COMPARISON: CT abdomen pelvis 03/16/2024 IMPRESSION: A gastric tube tip and side port overlie the gastric body. Excreted contrast is seen within the renal collecting systems from same day CT abdomen pelvis. Dictated by: True Horne MD The radiology attending physician has personally reviewed this study, and had reviewed and/or edited this written report and agrees with it. Electronically signed by: Yared Jang M.D. us Janene Rodriguez MD IMG XR PROCEDURES Final R esult * (ABNORMAL) Sepsis Lactate w/ Reflex (03/16/2024 4:40 PM SHIP PAINTER HELPER) Sepsis Lactate 4.6(C) 0.7 - 2.0 mmol/L Blood 03/16/2024 4:40 PM SHIP PAINTER HELPER 03/16/2024 4:46 PM SHIP PAINTER HELPER Jean Bowden MD LAB BLOOD ORDERABLES Final Result Performing Organization Address City/[facility]/ZIP Co de Phone Number [facility] [place] [address] * Critical Result Callback Chemistry (03/16/2024 4:40 PM SHIP PAINTER HELPER) Pathologist [facility] Date Notified [id number] Time Notified 1657 [facility] TestName Sepsis Lactate [facility] Called/Read Back Dr. Janene Rodriguez [facility] Credentials [facility] Called By [facility] Blood 03/16/2024 4:40 PM SHIP PAINTER HELPER 03/16/2024 4:46 PM SHIP PAINTER HELPER Jean Bowden MD LAB BLOOD ORDERABLES Final Result Performing Organization Address [facility] [place] [place] [address] * Prepare plasma: 1 Units Standard plasma (03/16/2024 4:27 PM SHIP PAINTER HELPER) Pathologist [facility] Product code [id number] Unit Number [id number] [facility] Product Blood Type BPOS [facility] Dispense Status PRESUMED TRANSFUSED [facility] Blood (Blood, Venous) 03/16/2024 4:27 PM SHIP PAINTER HELPER 03/16/2024 4:28 PM SHIP PAINTER HELPER Narrative [facility] - 03/17/2024 6:00 AM SHIP PAINTER HELPER Other indication->Elevated coags with concern for surgical need Is this plasma order intended for a COVID-19 patient as convalescent plasma?->Standard plasma Special Requirements Needed?->No Date required:-[id number] FFP # of Units:-1-Units Reasons:-Other (Specify)} us Janene Rodriguez MD BLOOD BANK PRODUCT ORDERA BLES Final Result [facility] [place] [address] * [place] CRITICAL CARE ILL/INJURED PATIENT INIT 30-74 MIN (03/16/2024 3:11 PM SHIP PAINTER HELPER) Narrative Bobby Cardona MD - 03/16/2024 3:11 PM SHIP PAINTER HELPER Bobby Cardona MD ? 03/17/2024 ??6:31 PM Critical Care Performed by: Bobby Cardona MD Authorized by: Bobby Cardona MD ?? Critical care provider statement: As reflected in the history, physical exam, orders, notes, and/or MDM, I was personally present while the patient was critically ill and provided critical care services for 38 minutes, excluding time involved in separately billable procedures. ??Critical care was necessary to treat or prevent imminent or life-threatening deterioration of the following condition(s): ?? unstable vital signs ?? sepsis ??Critical care was time spent by me providing the following: ? continuous telemetry, continuous pulse oximetry, interpretation of bedside monitors, imaging, and arterial/venous lab draws, serial bedside patient exams and resuscitation with fluids ?? obtain appropriate cultures and empiric broad coverage antibiotics ?? I provided emergent necessary critical care medicine services to this patient. I ordered and reviewed test results and/or imaging studies. I spent time discussing the management of this critically ill patient with consultants and the medical staff. I spent time discussing the management and therapeutic options for this critically ill patient with the patient themselves or with the appropriate designated surrogate decision-maker. I spent time documenting in the medical record. us Bobby Cardona MD IN CLINIC/BEDSIDE ORDERAB LES Final Result * CT Abdomen Pelvis W Contrast (03/16/2024 3:10 PM SHIP PAINTER HELPER) Anatomical Region Laterality Modality Body N/A Computed Tomogra phy 03/16/2024 3:57 PM SHIP PAINTER HELPER Impressions 03/16/2024 4:26 PM SHIP PAINTER HELPER 1. ??Dilated loops of proximal jejunum which comes to an abrupt taper in left hemiabdomen with decompressed loops of small bowel distal to this. ??Adjacent to this transition point, there is extraluminal fluid and small locules of gas as well as extending along the central mesentery. ??It is possible this may represent a reactive ileus adjacent to a site of reported bowel injury, however a developing small bowel obstruction due to adhesions could appear similar. Extraluminal fluid and gas is indeterminate in the immediate postoperative setting. ??Recommend repeat with oral contrast. 2. ??Intraperitoneal free fluid also tracks the pelvis where there is mild peritoneal enhancement in keeping with peritonitis. Preliminary findings were discussed at the scanner with the primary team by Dr. Jerry Santana. ??Findings were again discussed with Dr. Janene Rodriguez by Pal Medina MD at 3:54 PM 03/16/2024. Dictated by: Pal Medina MD The radiology attending physician has personally reviewed this study, and had reviewed and/or edited this written report and agrees with it. Electronically signed by: Yared Jang M.D. Narrative 03/16/2024 4:26 PM SHIP PAINTER HELPER EXAMINATION: CT ABDOMEN PELVIS W CONTRAST TECHNIQUE: ??Transaxial computed tomographic images of the abdomen pelvis were obtained with intravenous contrast according to the standard protocol after the uneventful administration of 93 mL Opti-Ray 350 intravenous contrast. HISTORY: ??43 years-old Female with presenting with abdominal pain, altered metal status presenting after recent hysterectomy on 03/13/2024. ??Reportedly there was unspecified bowel injury during the operation. COMPARISON:02/11/2024 FINDINGS: ?? Lung bases demonstrate mild right and minimal left basilar atelectasis. ??Heart size is normal. There is no suspicious liver lesion. ??There is no biliary ductal dilation. ??The gallbladder is absent. ??The main portal vein is patent. ??Hepatic veins are patent. The spleen is normal. ??Pancreas is normal. ??Adrenal glands are normal. ??The kidneys enhance symmetrically. ??There is no hydronephrosis or hydroureter. ??Urinary bladder is decompressed and contains excreted contrast. ??Uterus is absent. ??There is no suspicious adnexal lesion. Stomach contains ingested material. ??There is a duodenal diverticulum, and the diverticulum has slightly increased in size compared to 03-04. ??There are dilated loops of small bowel in the proximal jejunum measure up to 45 mm. ??Which comes to a focal taper within a loop of jejunum on series 2 image 126. ??The distal small bowel and ileum are entirely decompressed. ??There is a small amount of extraluminal fluid at this site with small foci of extraluminal gas, such as series 2 image 142 and 132. ??There is dependent ascites in the pelvis with thickening and hyperenhancement of the peritoneal lining peritonitis. ??There is also loculated fluid in the central mesentery with focus of pneumoperitoneum, series 5 image 152. There is no abdominopelvic lymphadenopathy. ??Abdominal aorta is normal in course and caliber. ??There is soft tissue gas along the anterior left lower abdominal wall and adjacent umbilicus which may be postsurgical. ??There is no suspicious osseous lesion. Procedure Note Yared Jang MD - 03/16/2024 EXAMINATION: CT ABDOMEN PELVIS W CONTRAST TECHNIQUE: Transaxial computed tomographic images of the abdomen pelvis were obtained with intravenous contrast according to the standard protocol after the uneventful administration of 93 mL Opti-Ray 350 intravenous contrast. HISTORY: 43 years-old Female with presenting with abdominal pain, altered metal status presenting after recent hysterectomy on 03/13/2024. Reportedly there was unspecified bowel injury during the operation. COMPARISON:02/11/2024 FINDINGS: Lung bases demonstrate mild right and minimal left basilar atelectasis. Heart size is normal. There is no suspicious liver lesion. There is no biliary ductal dilation. The gallbladder is absent. The main portal vein is patent. Hepatic veins are patent. The spleen is normal. Pancreas is normal. Adrenal glands are normal. The kidneys enhance symmetrically. There is no hydronephrosis or hydroureter. Urinary bladder is decompressed and contains excreted contrast. Uterus is absent. There is no suspicious adnexal lesion. Stomach contains ingested material. There is a duodenal diverticulum, and the diverticulum has slightly increased in size compared to 03-04. There are dilated loops of small bowel in the proximal jejunum measure up to 45 mm. Which comes to a focal taper within a loop of jejunum on series 2 image 126. The distal small bowel and ileum are entirely decompressed. There is a small amount of extraluminal fluid at this site with small foci of extraluminal gas, such as series 2 image 142 and 132. There is dependent ascites in the pelvis with thickening and hyperenhancement of the peritoneal lining peritonitis. There is also loculated fluid in the central mesentery with focus of pneumoperitoneum, series 5 image 152. There is no abdominopelvic lymphadenopathy. Abdominal aorta is normal in course and caliber. There is soft tissue gas along the anterior left lower abdominal wall and adjacent umbilicus which may be postsurgical. There is no suspicious osseous lesion. IMPRESSION: 1. Dilated loops of proximal jejunum which comes to an abrupt taper in left hemiabdomen with decompressed loops of small bowel distal to this. Adjacent to this transition point, there is extraluminal fluid and small locules of gas as well as extending along the central mesentery. It is possible this may represent a reactive ileus adjacent to a site of reported bowel injury, however a developing small bowel obstruction due to adhesions could appear similar. Extraluminal fluid and gas is indeterminate in the immediate postoperative setting. Recommend repeat with oral contrast. 2. Intraperitoneal free fluid also tracks the pelvis where there is mild peritoneal enhancement in keeping with peritonitis. Preliminary findings were discussed at the scanner with the primary team by Dr. Jerry Santana. Findings were again discussed with Dr. Janene Rodriguez by Pal Medina MD at 3:54 PM 03/16/2024. Dictated by: Pal Medina MD The radiology attending physician has personally reviewed this study, and had reviewed and/or edited this written report and agrees with it. Electronically signed by: Yared Jang M.D. us Janene Rodriguez MD IMG CT PROCEDURES Final R esult * CT Head WO Contrast (03/16/2024 3:10 PM SHIP PAINTER HELPER) Anatomical Region Laterality Modality Head and Neck N/A Computed Tomogra phy 03/16/2024 3:29 PM SHIP PAINTER HELPER Impressions 03/16/2024 3:35 PM SHIP PAINTER HELPER 1. ??No new large acute territory infarct and no acute intracranial hemorrhage. 2. 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 Dictated by: Pal Medina MD The radiology attending physician has personally reviewed this study, and had reviewed and/or edited this written report and agrees with it. Electronically signed by: Karina Romano M.D. Narrative 03/16/2024 3:35 PM SHIP PAINTER HELPER EXAMINATION: CT head without contrast HISTORY: 43-year-old with altered mental status recent hysterectomy, history of prior cerebral infarct. TECHNIQUE: CT of the head was performed with images acquired from skull base to vertex without intravenous contrast. COMPARISON: 02/11/2024. FINDINGS: There is extensive encephalomalacia along the right cerebral hemisphere in keeping with sequela of a right middle cerebral artery territory infarct. ??There is no acute intracranial hemorrhage. There is unchanged ex vacuo dilation of the right lateral ventricle. No mass effect or midline shift is present. The visualized portions of the orbits are normal. The visualized portions of the mastoids are normal. The visualized portions of the paranasal sinuses are normal. There are changes of a right frontoparietal temporal craniotomy. Fatty atrophy of the bilateral parotid glands. Procedure Note Luis Antonio Romano, Karina Boone MD - 03/16/2024 EXAMINATION: CT head without contrast HISTORY: 43-year-old with altered mental status recent hysterectomy, history of prior cerebral infarct. TECHNIQUE: CT of the head was performed with images acquired from skull base to vertex without intravenous contrast. COMPARISON: 02/11/2024. FINDINGS: There is extensive encephalomalacia along the right cerebral hemisphere in keeping with sequela of a right middle cerebral artery territory infarct. There is no acute intracranial hemorrhage. There is unchanged ex vacuo dilation of the right lateral ventricle. No mass effect or midline shift is present. The visualized portions of the orbits are normal. The visualized portions of the mastoids are normal. The visualized portions of the paranasal sinuses are normal. There are changes of a right frontoparietal temporal craniotomy. Fatty atrophy of the bilateral parotid glands. IMPRESSION: 1. No new large acute territory infarct and no acute intracranial hemorrhage. 2. 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 Dictated by: Pal Medina MD The radiology attending physician has personally reviewed this study, and had reviewed and/or edited this written report and agrees with it. Electronically signed by: Karina Romano M.D. Janene Rodriguez MD IMG CT PROCEDURES Final R esult * (ABNORMAL) Urinalysis reflex to microscopic and culture Urine (03/16/2024 3:05 PM SHIP PAINTER HELPER) Color, ur Yellow Yellow Clarity, ur Cloudy(A) Clear [facility] Specific gravity, ur 1.020 1.003 - 1.030 [facility] pH, urine 6.0 [facility] Comment: Interpretive Data ? Urine pH is affected by diet, medications, systemic acid-base disturbances, and renal tubular function. ??pH may affect urinary stone formation. ??For example, urine pH below 6.0 may help reduce the tendency for calcium phosphate stones and pH greater than 6.0 may reduce the tendency for uric acid stone formation. Source: [facility] [employer] Current Interpretive Data was last revised on 2017 Protein, ur ql Trace Negative [facility] Glucose, ur ql Negative Negative [facility] Ketones, ur Negative Negative [facility] Bilirubin, ur Negative Negative [facility] Blood, ur Negative Negative [facility] Urobilinogen, ur <2.0 <2.0 mg/dL [facility] Nitrite, ur Negative Negative [facility] Leukocyte esterase, ur Negative Negative [facility] UA reflex comment Reflex conditions for microscopic UA and culture not met. [facility] Urine 03/16/2024 3:05 PM SHIP PAINTER HELPER 03/16/2024 3:27 PM SHIP PAINTER HELPER Janene Rodriguez MD LAB MICROBIOLOGY - GENERA L ORDERABLES Final Result [facility] Department [place] [address] * Check Sample (03/16/2024 2:55 PM SHIP PAINTER HELPER) ABO Rh B [facility] OTHER 03/16/2024 2:55 PM SHIP PAINTER HELPER 03/16/2024 3:04 PM SHIP PAINTER HELPER Bobby Cardona MD LAB BLOOD ORDERABLES Tia l Result [facility] [place] [address] [facility] * (ABNORMAL) Sepsis Lactate w/ Reflex (03/16/2024 2:53 PM SHIP PAINTER HELPER) Sepsis Lactate 6.9(C) 0.7 - 2.0 mmol/L Comment:Verified Blood 03/16/2024 2:53 PM SHIP PAINTER HELPER 03/16/2024 3:03 PM SHIP PAINTER HELPER Bobby Cardona MD LAB BLOOD ORDERABLES Tia l Result Performing Organization Address [facility]/ZIP Co de Phone Number [facility] [place] [address] * Critical Result Callback Chemistry (03/16/2024 2:53 PM SHIP PAINTER HELPER) Date Notified [id number] Time Notified 1514 [facility] TestName Sepsis Lactate [facility] Called/Read Back Janene Rodriguez [facility] Credentials MD [facility] Called By BUDDY [facility] Blood 03/16/2024 2:53 PM SHIP PAINTER HELPER 03/16/2024 3:03 PM SHIP PAINTER HELPER Jean Bowden MD LAB [place] [address] * (ABNORMAL) ECG 12-LEAD (03/16/2024 2:47 PM SHIP PAINTER HELPER) Narrative [facility] - 03/16/2024 2:47 PM SHIP PAINTER HELPER Antony Mcduffie MD ? 03/16/2024 ??2:48 PM ECG 12 lead Date/Time: 03/16/2024 2:47 PM Performed by: Antony Mcduffie MD Authorized by: Jean Bowden MD ?? Rate: ??ECG rate: ??133 ??ECG rate assessment: tachycardic ?? Rhythm: ??Rhythm: sinus tachycardia ?? Ectopy: ??Ectopy: none ?? QRS: ??QRS axis: ??Normal ??QRS intervals: ??Normal Conduction: ??Conduction: normal ?? ST segments: ??ST segments: ??Non-specific T waves: ??T waves: inverted ?Inverted: ??V1, V2, V3, V4, III and aVF Previous ECG: ??Previous ECG: ??Unavailable Interpretation: ??Interpretation: abnormal ?? Recommended Follow-up: ??Recommended follow up: further workup in the ED ?? Procedure Note Antony Mcduffie MD - 03/16/2024 2:47 PM CST Procedure ECG 12 lead Date/Time: 03/16/2024 2:47 PM Performed by: Antony Mcduffie MD Authorized by: Jean Bowden MD Rate: ECG rate: 133 ECG rate assessment: tachycardic Rhythm: Rhythm: sinus tachycardia Ectopy: Ectopy: none QRS: QRS axis: Normal QRS intervals: Normal Conduction: Conduction: normal ST segments: ST segments: Non-specific T waves: T waves: inverted Inverted: V1, V2, V3, V4, III and aVF Previous ECG: Previous ECG: Unavailable Interpretation: Interpretation: abnormal Recommended Follow-up: Recommended follow up: further workup in the ED Antony Mcduffie MD 03/16/24 [id number] us Bobby Cardona MD ECG ORDERABLES Final Res ult [facility] * (ABNORMAL) eGFR (03/16/2024 2:43 PM SHIP PAINTER HELPER) eGFR 26(L) >=60 mL/min/1. 73 m2 Comment: Interpretive Data Reference Interval Normal ?>/= 90 mL/min/1.73m2 Mildly decreased* ? 60 - 89 mL/min/1.73m2 Mildly to moderately decreased ?45 - 59 mL/min/1.73m2 Moderately to severely decreased ??30 - 44 mL/min/1.73m2 Severely decreased ?15 - 29 mL/min/1.73m2 Kidney Failure ?< 15 ??mL/min/1.73m2 *Relative to young adult level Estimated glomerular filtration rate is determined by the 2020 CKD-EPI equation recommended by the National Kidney Foundation (A Unifying Approach to GFR Estimation: Recommendations of the NKF-ASK Task Force on Reassessing the Inclusion of Race in Diagnosing Kidney Disease, JASN 2020). The CKD-EPI equation should not be used for patients with unstable renal function and has not been validated in children and those over 70. Current interpretive data was last reviewed 2021. Blood 03/16/2024 2:43 PM SHIP PAINTER HELPER 03/16/2024 2:55 PM SHIP PAINTER HELPER us Aleah Rodriguez MD LAB BLOOD ORDERABLES Fin al Result [facility] Department of Laboratories [place], [place] [id number] * (ABNORMAL) Differential, auto (03/16/2024 2:43 PM SHIP PAINTER HELPER) Neutrophil abs 5.1 1.5 - 6.5 K/cumm Imm gran abs 0.1 0.0 - 0.1 K/cumm [facility] Lymphocyte abs 0.7(L) 0.8 - 3.3 K/cumm [facility] Monocyte abs 0.2 0.2 - 0.8 K/cumm [facility] Eosinophil abs 0.0 0.0 - 0.5 K/cumm [facility] Basophil abs 0.1 0.0 - 0.1 K/cumm [facility] Neutrophil pct 83.0 % [facility] Comment: Confirmed by smear review Interpretive Data Percent cell count reference ranges are not reported, since discordance with absolute values may lead to misinterpretation of CBC data. Current Interpretive Data was last revised on 2017. Imm gran pct 1.5 % [facility] Comment: Interpretive Data Percent cell count reference ranges are not reported, since discordance with absolute values may lead to misinterpretation of CBC data. Current Interpretive Data was last revised on 2017. Lymphocyte pct 10.6 % [facility] Comment: Interpretive Data Percent cell count reference ranges are not reported, since discordance with absolute values may lead to misinterpretation of CBC data. Current Interpretive Data was last revised on 2017. Monocyte pct 3.1 % [facility] Comment: Interpretive Data Percent cell count reference ranges are not reported, since discordance with absolute values may lead to misinterpretation of CBC data. Current Interpretive Data was last revised on 2017. Eosinophil pct 0.5 % [facility] Comment: Interpretive Data Percent cell count reference ranges are not reported, since discordance with absolute values may lead to misinterpretation of CBC data. Current Interpretive Data was last revised on 2017. Basophil pct 1.3 % [facility] Comment: Interpretive Data Percent cell count reference ranges are not reported, since discordance with absolute values may lead to misinterpretation of CBC data. Current Interpretive Data was last revised on 2017. Blood 03/16/2024 2:43 PM SHIP PAINTER HELPER 03/16/2024 2:55 PM SHIP PAINTER HELPER us Aleah Rodriguez MD LAB BLOOD ORDERABLES Fin al Result [facility] Department [place] [address] * (ABNORMAL) CBC with auto differential (03/16/2024 2:43 PM SHIP PAINTER HELPER) WBC 6.2 3.8 - 9.9 K/cumm Hgb 15.9(H) 11.9 - 15.5 g/dL [facility] Hct 48.0(H) 35.6 - 45.5 % [facility] Plt 331 150 - 400 K/cumm [facility] MPV 10.9 9.1 - 12.3 fL [facility] RBC 5.12 3.90 - 5.20 M/cumm [facility] MCV 93.8 81.3 - 96.4 fL [facility] MCH 31.1 27.1 - 33.3 pg [facility] MCHC 33.1 32.3 - 35.7 g/dL [facility] RDW CV 15.2(H) 11.1 - 14.9 % [facility] RDW SD 52.4(H) 35.7 - 48.1 fL [facility] NRBC abs 0.00 0.00 - 0.01 K/cumm [facility] Blood 03/16/2024 2:43 PM SHIP PAINTER HELPER 03/16/2024 2:55 PM SHIP PAINTER HELPER us Aleah Rodriguez MD LAB BLOOD ORDERABLES Fin al Result Performing Organization Address City/State/[facility] Co de Phone Number [facility] Department [place] [address] * (ABNORMAL) Protime-INR (03/16/2024 2:43 PM SHIP PAINTER HELPER) PT 25.5(H) 9.7 - 13.0 sec INR 2.32(H) 0.90 - 1.20 [facility] Comment: Interpretive data Oral anticoagulant therapeutic ranges: Venous thromboembolism prophylaxis or treatment: 2.0-3.0 CARDIOLOGY Standard range: 2.0-3.0 High-intensity range: 2.5-3.5 Refer to indication-specific guidelines for appropriate target ranges for prosthetic heart valve replacement. Current interpretive data was last revised on 2019. Blood 03/16/2024 2:43 PM SHIP PAINTER HELPER 03/16/2024 2:55 PM SHIP PAINTER HELPER Aleah Rodriguez MD LAB BLOOD ORDERABLES Fin al Result Performing Organization Address City/[facility] Co de Phone Number [facility] [place] [place] [address] * (ABNORMAL) Fibrinogen (03/16/2024 2:43 PM SHIP PAINTER HELPER) [facility] Fibrinogen 856(H) 170 - 400 mg/dL Blood 03/16/2024 2:43 PM SHIP PAINTER HELPER 03/16/2024 2:55 PM SHIP PAINTER HELPER Aleah Rodriguez MD LAB BLOOD ORDERABLES Fin al Result Performing Organization Address [facility] [place] [place] [address] * Type and screen (03/16/2024 2:43 PM SHIP PAINTER HELPER) [facility] Bud, indirect Negative ABO Rh B Positive [facility] Blood 03/16/2024 2:43 PM SHIP PAINTER HELPER 03/16/2024 2:54 PM SHIP PAINTER HELPER Narrative [facility] - 03/16/2024 3:43 PM SHIP PAINTER HELPER Has the patient had Daratumumab or Isatuximab in the past 6 months?->Unknown Aleah Rodriguez MD LAB BLOOD BANK TEST ORDE RABLES Final Result Performing Organization Address [facility] [place] [place] [address] * (ABNORMAL) Comprehensive metabolic panel (03/16/2024 2:43 PM SHIP PAINTER HELPER) Pathologist [facility] Sodium 139 135 - 145 mmol/L Potassium, pl 5.3(H) 3.3 - 4.9 mmol/L [facility] Chloride 101 97 - 110 mmol/L [facility] CO2 19(L) 22 - 32 mmol/L [facility] Anion gap 19(H) 2 - 15 mmol/L [facility] BUN 33(H) 6 - 25 mg/dL [facility] Creatinine 2.34(H) 0.60 - 1.10 mg/dL [facility] Glucose 131 70 - 199 mg/dL [facility] Comment: Interpretive Data Fasting glucose >/= 126 mg/dl is diagnostic for diabetes. ?? Fasting is defined as no caloric intake for at least 8 hours. Fasting glucose between 100 mg/dl to 125 mg/dl is diagnostic of prediabetes. In a patient with classic symptoms of hyperglycemia or hyperglycemic crisis, a random glucose >/= 200 mg/dl is diagnostic for diabetes. In the absence of unequivocal hyperglycemia, results should be confirmed by repeat testing. The classification and Diagnosis of Diabetes Diabetes Care 2021; 46: S19-S40. Current interpretive data was last revised 2022. Calcium 9.9 8.5 - 10.3 mg/dL [facility] Bilirubin, total 0.8 0.1 - 1.2 mg/dL [facility] Protein, pl 7.1 6.5 - 8.5 g/dL [facility] Albumin 3.0(L) 3.5 - 5.0 g/dL [facility] Alk phos 73 40 - 130 Units/L [facility] ALT 71(H) 7 - 45 Units/L [facility] AST 102(H) 10 - 45 Units/L [facility] Blood 03/16/2024 2:43 PM SHIP PAINTER HELPER 03/16/2024 2:55 PM SHIP PAINTER HELPER us Aleah Rodriguez MD LAB BLOOD ORDERABLES Fin al Result Performing Organization Address City/[facility]/ZIP Co de Phone Number [facility] Department [place] [address] * Imaging Trigger Point INJ 1-2 Muscle Groups () (02/19/2024 12:16 PM SHIP PAINTER HELPER) Narrative [facility] - 02/19/2024 12:16 PM SHIP PAINTER HELPER The images from this study are not interpreted by Radiology. ??Please refer to the physician's procedure / OR operative note. us Jacques Acevedo MD IMG PAIN MGMT PROCEDURES Final Result Performing Organization Address City/[facility] Co de Phone Number [email or web address] * DEVICE CHECK - REMOTE (02/18/2024 2:12 AM SHIP PAINTER HELPER) Anatomical Region Laterality Modality Other 02/18/2024 2:12 AM SHIP PAINTER HELPER Narrative 03/11/2024 4:31 PM SHIP PAINTER HELPER Interpretation Summary: Battery and Leads (BL) Normal battery parameters Presenting Rhythm (AZ) Normal Sinus Rhythm Arrhythmic events (AE) No new arrhythmic events in monitoring period Transmission Information (TI) Device Summary Report Implant indication: Cryptogenic Stroke Procedure Note Angelica Cochran MD - 03/11/2024 Interpretation Summary: Battery and Leads (BL) Normal battery parameters Presenting Rhythm (AZ) Normal Sinus Rhythm Arrhythmic events (AE) No new arrhythmic events in monitoring period Transmission Information (TI) Device Summary Report Implant indication: Cryptogenic Stroke Angelica Cochran MD [facility] PROCEDURES Final Result * Troponin T high-sensitivity 2-hour (02/11/2024 10:28 PM SHIP PAINTER HELPER) Trop T hs <6 <=14 ng/L Comment: Interpretive Data For further hscTnT resources including the diagnostic algorithm and an aid in interpretation, copy and paste this link: https://nrl.testcatalog.org/show/hsTrop Current Interpretive Data last revised 2020. Testing performed by: [address] [address] Trop T hs delta 0 ng/L [facility] Comment:Testing performed by : [address] [address] Trop T hs interp Insignificant [facility] Comment:Testing performed by : [address] [address] Blood 02/11/2024 10:2 8 PM SHIP PAINTER HELPER 02/11/2024 10:31 PM SHIP PAINTER HELPER Nicanor Swanson Jr., MD LAB BLOOD ORDERABLES Fi nal Result [facility] [address] [facility] Department [place] [address] * CT Abdomen Pelvis W Contrast (02/11/2024 10:16 PM SHIP PAINTER HELPER) Anatomical Region Laterality Modality Body N/A Computed Tomogra phy 02/11/2024 10:4 3 PM SHIP PAINTER HELPER Narrative 02/11/2024 11:00 PM SHIP PAINTER HELPER EXAM DESCRIPTION: ?? CT ABDOMEN PELVIS W CONTRAST REASON FOR STUDY: ?? LLQ abdominal pain ?? Abdominal pain since 02/02/2024 on Protonix for GERD. Pt reports pain is upper mid abd and lower left. 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 Pt has hx of feeding tube with reversal and several surgeries on stomach but ?? none since 12/2022. Reports frequent UTI but denies urinary symptoms at this time. Pt does report vomiting green/yellow on 02/09 no emesis today. Pt also reports loose stools. PT states called PCP who deflected pt to the ED for eval. ? TECHNIQUE: CT scan of the abdomen and pelvis performed with intravenous and ?? without ??oral contrast using helical scanning technique with dynamic intravenous contrast injection. Reconstructed coronal and sagittal MPR images reviewed. All images stored on PACS. Automated exposure control was used as a dose optimization technique for this examination. CONTRAST TYPE/DOSE: ?? 100mL of IOVERSOL 350 MG IODINE/ML INTRAVENOUS SYRINGE ?? injected via ?? intravenous COMPARISON: ?? None FINDINGS: LOWER CHEST: ?? No significant pulmonary abnormalities. No effusion. LIVER: ?? Mild hypodensity of the liver is suggested of diffuse fatty infiltration. ??No focal lesion is seen. GALLBLADDER: ?? Unremarkable BILE DUCTS: ?? No intrahepatic or extrahepatic ductal dilatation. SPLEEN: ?? Normal size. ??No focal lesions. PANCREAS: ?? No identified cystic or solid masses. No significant calcifications. No adjacent inflammation or peripancreatic fluid collections. Pancreatic duct not dilated. ?? ADRENALS: ?? Normal. KIDNEYS/URINARY TRACT: ?? No identified significant cystic or solid masses. No visualized stones. No hydronephrosis or hydroureter. Symmetric enhancement. ? Urinary bladder is unremarkable. GI: ?? No dilated bowel loops. No obvious wall thickening. ??Small appendicoliths are suspected. ??The appendix otherwise appears normal without evidence of inflammation or infection.. ??No significant diverticular disease. PERITONEUM: ?? No ascites or free air. RETROPERITONEUM: ?? No mass or adenopathy. REPRODUCTIVE: ?? 3.2 cm left ovarian cyst is suspected. VASCULATURE: ?? No abdominal aortic aneurysm. MUSCULOSKELETAL: ?? No significant abnormality. OTHER: ?? No other abnormality. IMPRESSION: 3.2 cm left ovarian cyst is suspected. ??Follow-up ultrasound in 6 weeks is suggested to ensure resolution. No findings are seen to clearly explain left lower quadrant pain. ??No evidence of diverticulitis is seen. THIS IS AN ELECTRONICALLY VERIFIED FINAL REPORT 02/11/2024 11:00 PM - Electronically signed by ??Liam Begum M.D. KH: JAIMIE D: ??02/11/2024 11:00 PM T: ??02/11/2024 11:00 PM Report ID: [id number] Reading Location: ??[id number] Procedure Note Liam Begum MD - 02/11/2024 EXAM DESCRIPTION: CT ABDOMEN PELVIS W CONTRAST REASON FOR STUDY: LLQ abdominal pain Abdominal pain since 02/02/2024 on Protonix for GERD. Pt reports pain isupper mid abd and lower left. 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 Pt has hx of feeding tube with reversal and several surgeries on stomach but none since 12/2022. Reports frequent UTI butdenies urinary symptoms at this time. Pt does report vomiting green/yellow on02/09 no emesis today. Pt also reports loose stools. PT states called PCP whodeflected pt to the ED for eval. TECHNIQUE: CT scan of the abdomen and pelvis performed with intravenousand without oral contrast using helical scanning technique with dynamic intravenous contrast injection. Reconstructed coronal and sagittal MPRimages reviewed. All images stored on PACS. Automated exposure control was usedas a dose optimization technique for this examination. CONTRAST TYPE/DOSE: 100mL of IOVERSOL 350 MG IODINE/ML INTRAVENOUSSYRINGE injected via intravenous COMPARISON: None FINDINGS: LOWER CHEST: No significant pulmonary abnormalities. Noeffusion. LIVER: Mild hypodensity of the liver is suggested of diffuse fatty infiltration. No focal lesion is seen. GALLBLADDER: Unremarkable BILE DUCTS: No intrahepatic or extrahepatic ductal dilatation. SPLEEN: Normal size. No focal lesions. PANCREAS: No identified cystic or solid masses. No significant calcifications. No adjacent inflammation or peripancreatic fluidcollections. Pancreatic duct not dilated. ADRENALS: Normal. KIDNEYS/URINARY TRACT: No identified significant cystic or solid masses.No visualized stones. No hydronephrosis or hydroureter. Symmetricenhancement. Urinary bladder is unremarkable. GI: No dilated bowel loops. No obvious wall thickening. Small appendicoliths are suspected. The appendix otherwise appears normalwithout evidence of inflammation or infection.. No significant diverticulardisease. PERITONEUM: No ascites or free air. RETROPERITONEUM: No mass or adenopathy. REPRODUCTIVE: 3.2 cm left ovarian cyst is suspected. VASCULATURE: No abdominal aortic aneurysm. MUSCULOSKELETAL: No significant abnormality. OTHER: No other abnormality. IMPRESSION: 3.2 cm left ovarian cyst is suspected. Follow-up ultrasound in 6 weeksis suggested to ensure resolution. No findings are seen to clearly explain left lower quadrant pain. No evidence of diverticulitis is seen. THIS IS AN ELECTRONICALLY VERIFIED FINAL REPORT 02/11/2024 11:00 PM - Electronically signed by Liam Begum M.D. KH: JAIMIE Report ID: [id number] Reading Location: [place] [address] us Nicanor Swanson Jr., MD IMG CT PROCEDURES Final Result * CT Head WO Contrast (02/11/2024 10:16 PM SHIP PAINTER HELPER) Anatomical Region Laterality Modality Head and Neck N/A Computed Tomogra phy 02/11/2024 10:4 0 PM SHIP PAINTER HELPER Narrative 02/11/2024 10:43 PM SHIP PAINTER HELPER EXAM DESCRIPTION: CT HEAD WO CONTRAST REASON FOR STUDY: Mental status change, unknown cause ?? Abdominal pain since 02/02/2024 on Protonix for GERD. Pt reports pain is upper mid abd and lower left. 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 Pt has hx of feeding tube with reversal and several surgeries on stomach but ?? none since 12/2022. Reports frequent UTI but denies urinary symptoms at this time. Pt does report vomiting green/yellow on 02/09 no emesis today. Pt also reports loose stools. PT states called PCP who deflected pt to the ED for eval. ? TECHNIQUE: Axial images acquired through the brain without intravenous contrast. ??Images stored on PACS. ?? Automated exposure control was used as a dose optimization technique for this examination. COMPARISON: None FINDINGS: BRAIN: ?? No hemorrhage, edema or mass effect. No recent infarct. ? Large area of encephalomalacia is seen involving the right temporal and frontal lobes. ??Overlying craniotomy defect is noted consistent with prior surgery. ??There are some minor encephalomalacia is seen in the left frontal lobe. ?Mild underlying atrophy of the brain is also noted. EXTRA-AXIAL SPACES: ?? No fluid collections. No masses. CALVARIUM: ?? No fracture. SINUSES/MASTOIDS: ?? No fluid or mucosal thickening. ORBITS: ?? No significant abnormality. OTHER: ?? No other significant abnormality. IMPRESSION: Extensive encephalomalacia is seen in the right. ??No evidence of acute abnormality is seen. THIS IS AN ELECTRONICALLY VERIFIED FINAL REPORT 02/11/2024 10:43 PM - Electronically signed by ??Liam Begum M.D. KH: JAIMIE D: ??02/11/2024 10:43 PM T: ??02/11/2024 10:43 PM Report ID: [id number] Reading Location: ??[id number] Procedure Note Liam Begum MD - 02/11/2024 EXAM DESCRIPTION: CT HEAD WO CONTRAST REASON FOR STUDY: Mental status change, unknown cause Abdominal pain since 02/02/2024 on Protonix for GERD. Pt reports pain isupper mid abd and lower left. 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 Pt has hx of feeding tube with reversal and several surgeries on stomach but none since 12/2022. Reports frequent UTI butdenies urinary symptoms at this time. Pt does report vomiting green/yellow on02/09 no emesis today. Pt also reports loose stools. PT states called PCP whodeflected pt to the ED for eval. TECHNIQUE: Axial images acquired through the brain without intravenous contrast. Images stored on PACS. Automated exposure control was used asa dose optimization technique for this examination. COMPARISON: None FINDINGS: BRAIN: No hemorrhage, edema or mass effect. No recent infarct. Large area of encephalomalacia is seen involving the right temporal and frontal lobes. Overlying craniotomy defect is noted consistent with prior surgery. There are some minor encephalomalacia is seen in the leftfrontal lobe. Mild underlying atrophy of the brain is also noted. EXTRA-AXIAL SPACES: No fluid collections. No masses. CALVARIUM: No fracture. SINUSES/MASTOIDS: No fluid or mucosal thickening. ORBITS: No significant abnormality. OTHER: No other significant abnormality. IMPRESSION: Extensive encephalomalacia is seen in the right. No evidenceof acute abnormality is seen. THIS IS AN ELECTRONICALLY VERIFIED FINAL REPORT 02/11/2024 10:43 PM - Electronically signed by Liam Begum M.D. KH: JAIMIE Report ID: [id number] Reading Location: [place] [address] us Nicanor Swanson Jr., MD IMG CT PROCEDURES Final Result * Troponin T high-sensitivity series (baseline, 2hr, 4hr, 6hr) (02/11/2024 7:51 PM SHIP PAINTER HELPER) Trop T hs <6 <=14 ng/L Comment: Interpretive Data For further hscTnT resources including the diagnostic algorithm and an aid in interpretation, copy and paste this link: https://nrl.testcatalog.org/show/hsTrop Current Interpretive Data last revised 2020. Testing performed by: [facility], [address] [place] [address], [place]., [address] Blood 02/11/2024 7:51 PM SHIP PAINTER HELPER 02/11/2024 7:54 PM SHIP PAINTER HELPER us Nicanor Swanson Jr., MD LAB BLOOD ORDERABLES Ed ited Result - Final [facility] [address] [facility] Department [place] [address] * eGFR (02/11/2024 7:51 PM SHIP PAINTER HELPER) eGFR >90 >=60 mL/min/1. 73 m2 Comment: Interpretive Data Reference Interval Normal ?>/= 90 mL/min/1.73m2 Mildly decreased* ? 60 - 89 mL/min/1.73m2 Mildly to moderately decreased ?45 - 59 mL/min/1.73m2 Moderately to severely decreased ??30 - 44 mL/min/1.73m2 Severely decreased ?15 - 29 mL/min/1.73m2 Kidney Failure ?< 15 ??mL/min/1.73m2 *Relative to young adult level Estimated glomerular filtration rate is determined by the 2020 CKD-EPI equation recommended by the National Kidney Foundation (A Unifying Approach to GFR Estimation: Recommendations of the NKF-ASK Task Force on Reassessing the Inclusion of Race in Diagnosing Kidney Disease, JASN 2020). The CKD-EPI equation should not be used for patients with unstable renal function and has not been validated in children and those over 70. Current interpretive data was last reviewed 2021. Testing performed by: [facility] [facility], [address] [place] [address]., [address] Blood 02/11/2024 7:51 PM SHIP PAINTER HELPER 02/11/2024 7:54 PM SHIP PAINTER HELPER us Nicanor Swanson Jr., MD LAB BLOOD ORDERABLES Fi nal Result MURALI [address] [facility] Department [place] [address] * Differential, auto (02/11/2024 7:51 PM SHIP PAINTER HELPER) Pathologist [facility] Neutrophil abs 5.2 1.5 - 6.5 K/cumm Comment:Testing performed by : [address] [address] Imm gran abs 0.0 0.0 - 0.1 K/cumm [facility] Comment:Testing performed by : [address] [address] Lymphocyte abs 2.4 0.8 - 3.3 K/cumm [facility] Comment:Testing performed by : [address] [address] Monocyte abs 0.7 0.2 - 0.8 K/cumm [facility] Comment:Testing performed by : [address] [address] Eosinophil abs 0.1 0.0 - 0.5 K/cumm [facility] Comment:Testing performed by : [address] [address] Basophil abs 0.1 0.0 - 0.1 K/cumm [facility] Comment:Testing performed by : [address] [address] Neutrophil pct 61.4 % [facility] Comment: Interpretive Data Percent cell count reference ranges are not reported, since discordance with absolute values may lead to misinterpretation of CBC data. Current Interpretive Data was last revised on 2017. Testing performed by: [address] [address] Imm gran pct 0.4 % [facility] Comment: Interpretive Data Percent cell count reference ranges are not reported, since discordance with absolute values may lead to misinterpretation of CBC data. Current Interpretive Data was last revised on 2017. Testing performed by: [address] [address] Lymphocyte pct 28.5 % [facility] Comment: Interpretive Data Percent cell count reference ranges are not reported, since discordance with absolute values may lead to misinterpretation of CBC data. Current Interpretive Data was last revised on 2017. Testing performed by: [address] [address] Monocyte pct 7.8 % MURALI MORFIN Comment: Interpretive Data Percent cell count reference ranges are not reported, since discordance with absolute values may lead to misinterpretation of CBC data. Current Interpretive Data was last revised on 2017. Testing performed by: [address] [address] Eosinophil pct 1.2 % MURALI Comment: Interpretive Data Percent cell count reference ranges are not reported, since discordance with absolute values may lead to misinterpretation of CBC data. Current Interpretive Data was last revised on 2017. Testing performed by: [address] [address] Basophil pct 0.7 % MURALI MORFIN Comment: Interpretive Data Percent cell count reference ranges are not reported, since discordance with absolute values may lead to misinterpretation of CBC data. Current Interpretive Data was last revised on 2017. Testing performed by: [address] [address] Blood 02/11/2024 7:51 PM SHIP PAINTER HELPER 02/11/2024 7:54 PM SHIP PAINTER HELPER us Nicanor Swanson Jr., MD LAB BLOOD ORDERABLES nal Result [facility] [address] [facility] Department [place] [address] * CBC with auto differential (02/11/2024 7:51 PM SHIP PAINTER HELPER) WBC 8.5 3.8 - 9.9 K/cumm Comment:Testing performed by : [address] [address] Hgb 14.1 11.9 - 15.5 g/dL MURALI MORFIN Comment:Testing performed by : [address] [address] Hct 42.2 35.6 - 45.5 % MURALI MORFIN Comment:Testing performed by : [address] [address] Plt 359 150 - 400 K/cumm MURALI MORFIN Comment:Testing performed by : [address] [address] MPV 10.4 9.1 - 12.3 fL MURALI Comment:Testing performed by : [address] [address] RBC 4.59 3.90 - 5.20 M/cumm MURALI MORFIN Comment:Testing performed by : [address] [address] MCV 91.9 81.3 - 96.4 fL MURALI Comment:Testing performed by : [address] [address] MCH 30.7 27.1 - 33.3 pg MURALI Comment:Testing performed by : [address] [address] MCHC 33.4 32.3 - 35.7 g/dL MURALI Comment:Testing performed by : [address], [address] RDW CV 14.0 11.1 - 14.9 % MURALI Comment:Testing performed by : [address], [address] RDW SD 47.0 35.7 - 48.1 fL MURALI Comment:Testing performed by : [address] [address] NRBC abs 0.00 0.00 - 0.01 K/cumm MURALI Comment:Testing performed by : [address], [address] Blood (Blood, Venous) 02/11/2024 7:51 PM SHIP PAINTER HELPER 02/11/2024 7:54 PM SHIP PAINTER HELPER us Nicanor Swanson Jr., MD LAB BLOOD ORDERABLES Fi nal Result MURALI [address] [facility] Department [place] [address] * (ABNORMAL) Lipase (02/11/2024 7:51 PM SHIP PAINTER HELPER) Lipase 106(H) 10 - 99 Units/L Comment:Testing performed by : [address] [address] Blood (Blood, Venous) 02/11/2024 7:51 PM SHIP PAINTER HELPER 02/11/2024 7:54 PM SHIP PAINTER HELPER us Nicanor Swanson Jr., MD LAB BLOOD ORDERABLES Fi nal Result [facility] [address] [facility] Department [place] [address] * (ABNORMAL) Comprehensive metabolic panel (02/11/2024 7:51 PM SHIP PAINTER HELPER) Sodium 137 135 - 145 mmol/L Comment:Testing performed by : [address] [address] Potassium, pl 3.3 3.3 - 4.9 mmol/L MURALI Comment:Testing performed by : [address] [address] Chloride 99 97 - 110 mmol/L MURALI Comment:Testing performed by : [address] [address] CO2 21(L) 22 - 32 mmol/L MURALI Comment:Testing performed by : [address] [address] Anion gap 17(H) 2 - 15 mmol/L MURALI Comment:Testing performed by : [address] [address] BUN 11 6 - 25 mg/dL MURALI Comment:Testing performed by : [address] [address] Creatinine 0.50(L) 0.60 - 1.10 mg/dL MURALI Comment:Testing performed by : [address] [address] Glucose 97 70 - 199 mg/dL MURALI Comment: Interpretive Data Fasting glucose >/= 126 mg/dl is diagnostic for diabetes. ?? Fasting is defined as no caloric intake for at least 8 hours. Fasting glucose between 100 mg/dl to 125 mg/dl is diagnostic of prediabetes. In a patient with classic symptoms of hyperglycemia or hyperglycemic crisis, a random glucose >/= 200 mg/dl is diagnostic for diabetes. In the absence of unequivocal hyperglycemia, results should be confirmed by repeat testing. The classification and Diagnosis of Diabetes Diabetes Care 202; 46: S19-S40. Current interpretive data was last revised 2022. Testing performed by: [address] [address] Calcium 9.3 8.5 - 10.3 mg/dL MURALI Comment:Testing performed by : [address] [address] Bilirubin, total 0.5 0.1 - 1.2 mg/dL [facility] Comment:Testing performed by : [address] [address] Protein, pl 7.9 6.5 - 8.5 g/dL MURALI Comment:Testing performed by : [address] [address] Albumin 4.2 3.5 - 5.0 g/dL [facility] Comment:Testing performed by : [address] [address] Alk phos 65 40 - 130 Units/L [facility] Comment:Testing performed by : [address] [address] ALT 74(H) 7 - 45 Units/L [facility] Comment:Testing performed by : [address] [address] AST 138(H) 10 - 45 Units/L [facility] Comment:Testing performed by : [address] [address] Blood 02/11/2024 7:51 PM SHIP PAINTER HELPER 02/11/2024 7:54 PM SHIP PAINTER HELPER us Nicanor Swanson Jr., MD LAB BLOOD ORDERABLES Fi nal Result MURALI [address] [facility] Department of Laboratories [place], [place] [id number] * (ABNORMAL) Urinalysis reflex to microscopic and culture Urine (02/11/2024 7:49 PM SHIP PAINTER HELPER) Color, ur Yellow Yellow Comment:Testing performed by : [address] [address] Clarity, ur Cloudy(A) Clear MURALI Comment:Testing performed by : [address], [place]., [address] Specific gravity, ur 1.032(H) 1.003 - 1.030 MURALI Comment:Testing performed by : [address] [address] pH, urine 6.0 MURALI Comment: Interpretive Data ? Urine pH is affected by diet, medications, systemic acid-base disturbances, and renal tubular function. ??pH may affect urinary stone formation. ??For example, urine pH below 6.0 may help reduce the tendency for calcium phosphate stones and pH greater than 6.0 may reduce the tendency for uric acid stone formation. Source: [facility] [employer] Current Interpretive Data was last revised on 2017 Testing performed by: [address] [address] Protein, ur ql 1+(A) Negative [facility] Comment:Testing performed by : [address] [address] Glucose, ur ql Negative Negative MURALI Comment:Testing performed by : [address] [address] Ketones, ur 4+(A) Negative MURALI Comment:Testing performed by : [address] [address] Bilirubin, ur 1+(A) Negative MURALI Comment:Testing performed by : [address] [address] Blood, ur Negative Negative MURALI Comment:Testing performed by : [address] [address] Urobilinogen, ur 2.0(A) <2.0 mg/dL MURALI Comment:Testing performed by : [address] [address] Nitrite, ur Negative Negative MURALI Comment:Testing performed by : [address] [address] Leukocyte esterase, ur Negative Negative MURALI MORFIN Comment:Testing performed by : [address] [address] UA reflex comment Reflex to microscopic UA will be performed. MURALI Comment:Testing performed by : [address], [place]., [address] Urine 02/11/2024 7:49 PM SHIP PAINTER HELPER 02/11/2024 7:54 PM SHIP PAINTER HELPER us Nicanor Swanson Jr., MD LAB MICROBIOLOGY - GENE RAL ORDERABLES Final Result MURALI [address] [facility] Department [place] [address] * (ABNORMAL) Urinalysis, microscopic only (02/11/2024 7:49 PM SHIP PAINTER HELPER) WBC, ur 11-20(A) 0 - 5 /HPF Comment:Testing performed by : [address] [address] RBC, ur 6-10(A) 0 - 2 /HPF MURALI MORFIN Comment:Testing performed by : [address] [address] Epithelial cells, squamous, ur >50(A) 0 - 5 /HPF MURALI Comment:Testing performed by : [address] [address] Bacteria, ur 3+(A) MURALI Comment:Testing performed by : [address] [address] Yeast, ur 1+(A) MURALI Comment:Testing performed by : [address] [address] Mucous, ur Present(A) MURALI Comment:Testing performed by : [address] [address] Culture Reflex Comment Reflex to urine culture will be performed. MURALI Comment:Testing performed by : [address] [address] Urine 02/11/2024 7:49 PM SHIP PAINTER HELPER 02/11/2024 7:54 PM SHIP PAINTER HELPER Nicanor Swanson Jr., MD LAB URINE ORDERABLES Fi nal Result Performing Organization Address [facility] Co de Phone Number MURALI [address] [place] [address] * POCT hCG, urine (02/11/2024 7:49 PM SHIP PAINTER HELPER) [facility] HCG, ur, POC Negative Negative Lot Number [id number] QC Backgroud Clear Acceptable QC Control Line Acceptable Urine 02/11/2024 7:49 PM SHIP PAINTER HELPER Nicanor Swanson Jr., MD POINT OF CARE TEST ORDE RABLES Final Result * Urine culture Urine (02/11/2024 7:49 PM SHIP PAINTER HELPER) [facility] Report Final Report: Less than 100,000 colonies/mL (clinically insignificant growth based on current clinical standards) Comment:Testing performed by : [facility], [address] [place]., [address] Organism (CLINICALLY INSIGNIFICANT GROWTH [facility] Urine 02/11/2024 7:49 PM SHIP PAINTER HELPER 02/12/2024 1:39 AM SHIP PAINTER HELPER Narrative MURALI - 02/13/2024 2:21 PM SHIP PAINTER HELPER Urine culture reflexed based upon urinalysis results. Testing performed by [facility] Microbiology Laboratory ([phone]) Nicanor Swanson Jr., MD LAB MICROBIOLOGY - GENE RAL ORDERABLES Final Result Performing Organization Address [facility]/ZIP Co de Phone Number MURALI [facility] [place] [address] * ECG 12 lead (02/11/2024 7:26 PM SHIP PAINTER HELPER) [facility] Ventricular Rate EKG/Min 98 BPM [facility] Atrial Rate 98 BPM [facility] [place]-Interval (MSEC) 122 ms [facility] QRS-Interval (MSEC) 90 ms [facility] QT-Interval (MSEC) 384 ms [facility] QTc 490 ms [facility] P Jean 3 degrees [facility] R Jean 15 degrees [facility] T Jean -49 degrees [facility] Diagnosis Normal sinus rhythm RSR' or QR pattern in V1 suggests right ventricular conduction delay ST & T wave abnormality, consider inferior ischemia ST & T wave abnormality, consider anterolateral ischemia Prolonged QT Abnormal ECG No previous ECGs available Confirmed by SULTAN ROSE M.D. ([id number]) on 02/12/2024 9:22:55 AM [facility] 02/11/2024 7:26 PM SHIP PAINTER HELPER 02/12/2024 9:22 AM SHIP PAINTER HELPER us Nicanor Swanson Jr., MD ECG ORDERABLES Final R esult [facility] * DEVICE CHECK - REMOTE (01/17/2024 1:17 PM SHIP PAINTER HELPER) Anatomical Region Laterality Modality Other 01/17/2024 1:17 PM SHIP PAINTER HELPER Narrative 02/03/2024 2:04 PM SHIP PAINTER HELPER Interpretation Summary: Battery and Leads (BL) Normal battery parameters Presenting Rhythm (AZ) Normal Sinus Rhythm Arrhythmic events (AE) No new arrhythmic events in monitoring period Transmission Information (TI) Device Summary Report Implant indication: Cryptogenic Stroke Procedure Note Angelica Cochran MD - 02/03/2024 Interpretation Summary: Battery and Leads (BL) Normal battery parameters Presenting Rhythm (AZ) Normal Sinus Rhythm Arrhythmic events (AE) No new arrhythmic events in monitoring period Transmission Information (TI) Device Summary Report Implant indication: Cryptogenic Stroke us Angelica Cochran MD [facility] PROCEDURES Final Result * DEVICE CHECK - IN OFFICE (12/18/2023 10:29 AM CDT) Anatomical Region Laterality Modality Other 12/18/2023 2:00 AM CDT Narrative 12/25/2023 9:07 AM CDT Interpretation Summary: Procedure Note Angelica Cochran MD - 12/25/2023 Interpretation Summary: Angelica Cochran MD CV CARDIAC SERVICES PROCEDURES Final Result from Last 3 Months Insurance [facility] [employer] Address: [facility] [id number] [place] [id number] ([place]) [id number] [facility] [employer] [facility] Address: [facility] [address] [place] [address] Advance Directives For more information, please contact: [phone] * Full Code (Latest Code Status on File) Date Activated Date Inactivated Comments 03/17/2024 1:31 AM * Full Code Date Activated Date Inactivated Comments 10/15/2023 8:05 AM 10/21/2023 5:44 PM Care Teams Outside Sales Manager Relationship Specialty Start Date End Date Jaden Thakur DO [address] [place] [id number] PCP - General Family Medicine 06/01/23
--- OUTSIDE RECORDS SUMMARY | 2024-03-19 20:52 | XMS_ITS | Encounter Summary ---
Author Organization [facility] Address [address] [place] [address] Phone Care Team Providers Care Corporate Accountant Name Role Phone Jaden Thakur Primary Care Provide r Reason for Referral * Cardiology (Routine) - Authorized Specialty Diagnoses / Procedures Referred By Contac t Referred To Contact Diagnoses Cryptogenic stroke (HCC) Presence of electronic cardiac device Procedures DEVICE CHECK - IN OFFICE Angelica Cochran MD Phone: tel: fax: [facility] (All Locations) Referral ID Status Reason Start Date Expiration Date V isits Requested Visits Authorized [id number] Authorized 12/18/2023 01/16/2025 1 1 Reason for Visit * Cardiology (Routine) - Closed Specialty Diagnoses / Procedures Referred By Contac t Referred To Contact Diagnoses Cryptogenic stroke (HCC) Procedures DEVICE CHECK - IN OFFICE Angelica Cochran MD Phone: tel: fax: [facility] (All Locations) Referral ID Status Reason Start Date Expiration Date Visits Re quested Visits Authorized [id number] Closed 09/20/2023 10/19/2024 1 1 Encounter Details Date Type Department Care Team (Latest Contact Info) Description 12/18/2023 10:45 AM CDT Ancillary Procedure [facility] Cardiology [address] [place] [address] Presence of electronic cardiac device (Primary Dx); Cryptogenic stroke (HCC) Social History Tobacco Use Types [...] on file 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 Gender Identity Not on file Sexual Orientation Not on file documented as of this encounter Last Filed Vital Signs Vital Sign Reading Time Taken Comments Blood Pressure 114/77 12/18/2023 11:05 AM CDT Pulse 91 12/18/2023 11:05 AM CDT Temperature 36.8 ??C (98.2 ??F) 12/18/2023 1 1:05 AM CDT Respiratory Rate - - Oxygen Saturation 93% 12/18/2023 11: 05 AM CDT Inhaled Oxygen Concentration - - Weight 107.4 kg (236 lb 12.8 oz) 2023 11:05 AM CDT Height 162.6 cm (5' 4 ) 12/18/2023 11:0 5 AM CDT Body Mass Index 40.65 12/18/2023 11:05 AM CDT documented in this encounter Plan of Treatment Scheduled Orders Name Type Priority Associated Diagnoses Orde r Schedule DEVICE CHECK - IN OFFICE Cardiac Services Routine Cryptogenic stroke (HCC) Presence of electronic cardiac device Expected: 12/17/2024 (Approximate), Expires: 06/17/2025 documented as of this encounter Procedures Procedure Name Priority Date/Time Associated Diagnosis Comments DEVICE CHECK - IN OFFICE Routine 12/18/2023 10:29 AM CDT Cryptogenic stroke (HCC) documented in this encounter Results * DEVICE CHECK - IN OFFICE (12/18/2023 10:29 AM CDT) Anatomical Region Laterality Modality Other 12/18/2023 2:00 AM CDT Narrative 12/25/2023 9:07 AM CDT Interpretation Summary: Procedure Note Angelica Cochran MD - 12/25/2023 Interpretation Summary: Angelica Cochran MD [facility] CARDIAC SERVICES PROCEDURES Final Result documented in this encounter Visit Diagnoses Diagnosis Presence of electronic cardiac device- Primary Cryptogenic stroke (HCC) documented in this encounter Discontinued Medications Medication Sig Discontinue Reason Start Date End Da te aspirin 325 mg tablet Take 81 mg by mouth daily Duplicate order 12/18/2023 hydrOXYzine (VISTARIL) 25 mg capsule Take 1 capsule (25 mg total) by mouth 3 (three) times a day as needed for itching Duplicate order 12/18/2023 documented as of this encounter Historical Medications * This list may reflect changes made after this encounter. aspirin 81 mg enteric coated tablet Take 1 tablet (81 mg total) by mouth daily added in this encounter Care Teams Corporate Accountant Relationship Specialty Start Date End Date Jaden Thakur DO [address] [place] [id number] PCP - General Family Medicine 06/01/23 documented as of this encounter
--- OUTSIDE RECORDS SUMMARY | 2024-03-19 20:52 | XMS_ITS | Encounter Summary ---
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 Shruti Pendleton PA [address] [place] [address] [address] Phone: tel: fax: [address] [phone] Referral ID Status Reason Start Date Expiration Date Visits Requested Visits Authorized [id number] Pending Review Specialty Services Required 01/30/2025 1 1 Question Answer Please select the performing region: [facility] [[id number]] # of visits: 1 Comments Eval/treat left sided pain following CVA (2022) with associated nerve pain, muscle spasms and hemiparesis * Consultation (Routine) - Closed Specialty Diagnoses / Procedures Referred By Jimena muller Referred To Contact Behavioral Health Diagnoses Hemiparesis affecting left side as late effect of cerebrovascular accident (CMS/HCC) (HCC) Chronic left shoulder pain 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 [place] [address] Phone: tel: fax: [facility] Referral ID Status Reason Start Date Expiration Date V isits Requested Visits Authorized [id number] Closed Specialty Services Required 01/01/2024 01/30/2025 1 1 Question Answer Are you a Physician/Resident within the [facility]? No Please select the performing region: [facility] [[id number]] Please select the performing department: [facility] [[id number]] # of visits: 1 Comments Complex medical history following CVA. Patient and caregiver seeking assistance for help coordinating care/advocacy. Reason for Visit * Reason Comments Pain Est-patient here to discuss options for left shoulder pain. Surgery is scheduled on Feb 18.Pain: 08/19 Encounter Details Date Type Department Care Team (Late st Contact Info) Description 01/01/2024 10:00 AM CDT Office Visit [facility] [address] [place] [phone] Shruti Pendleton PA [address] [facility] 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 Gender Identity Not on file Sexual Orientation Not on file documented as of this encounter Last Filed Vital Signs Vital Sign Reading Time Taken Comments Blood Pressure 111/74 01/01/2024 9:58 AM CDT Pulse 95 01/01/2024 9:58 AM CDT Temperature - - Respiratory Rate 16 01/01/2024 9:58 AM CDT Oxygen Saturation - - Inhaled Oxygen Concentration - - Weight 107 kg (236 lb) 01/01/2024 9:58 AM CDT Height 162.6 cm (5' 4 ) 01/01/2024 9:58 AM CDT Body Mass Index 40.51 01/01/2024 9:58 AM CDT documented in this encounter Progress Notes * Shruti Pendleton PA - 01/01/2024 10:00 AM CDT Images from the original note were not included. FOLLOW UP VISIT Subjective CHIEF COMPLAINT She had concerns including Pain of the Left Shoulder (Est-patient here to discuss options for left shoulder pain. Surgery is scheduled on Feb 18./Pain: 08/19). HISTORY OF PRESENT ILLNESS Patient is here to follow-up on her chronic left shoulder pain. Symptoms have been present since she sustained a CVA in 2022. She has had ongoing left-sided hemiparesis and chronic pain since the incident. She was previously seen by Dr. Benedict, then underwent additional consultation with Dr. Yoon. She has been working on obtaining medical optimization to proceed with a left shoulder arthroscopy with debridement in February. She presents today wanting to discuss additional options for pain management. She is accompanied byher significant other. Her primary complaint is pain, which encompasses the base of her neck, left shoulder, bicipital region, and radiates distally into the left arm. She has not had any new injuries or trauma. She currently takes baclofen, Cymbalta, hydrocodone . Nothing seems to help. Her pain is constant, and she has predictable bouts of worsening symptoms. She denies any interm injuries or trauma. Pain Assessment Pain Assessment: 0-10 Pain Score: 6 Pain Location: Shoulder Pain Orientation: Left Pain Descriptors: Aching, Dull, Discomfort, Sharp, Shooting, Tightness Pain Frequency: Constant/continuous Pain Onset: Ongoing Clinical Progression: Gradually worsening Aggravating Factors: Stretching, Straightening, Bending Result of Injury: No Work-Related Injury: No Patient's Stated Pain Goal: No pain Pain Interventions: Medication (See MAR), Home medication, Cold applied MEDICATIONS She has a current medication list which includes the following prescription(s): aspirin, baclofen, betamethasone dipropionate, buspirone, cetirizine, cholecalciferol, cyclobenzaprine, duloxetine dr, fluconazole, hydrocodone- acetaminophen, hydroxyzine, levetiracetam, metaxalone, metoprolol tartrate, pantoprazole dr, polyethylene glycol, ubrogepant, verapamil sr, cephalexin, fluconazole, and lorazepam. REVIEW OF SYSTEMS Review of Systems Objective PHYSICAL EXAM BP 111/74 (BP Location: Left arm, Patient Position: Sitting) Pulse 95 Resp 16 Ht 162.6 cm (5'4 ) Wt 107 kg (236 lb) BMI 40.51 kg/m?? Right shoulder The patient has normal inspection, palpation, range of motion, strength, and stability of the rightshoulder. Left shoulder Inspection Erythema: absent Effusion: absent Atrophy: present Scapulothoracic motion: abnormal (limited) Posture, chin forward: abnormal Posture, rounded shoulders: abnormal Palpation Tenderness is present. The patient has tenderness in the biceps tendon, anterior shoulder, posterior shoulder, lateral shoulder, trapezius, periscapular and SCM area(s). Strength The patient does not have normal strength at baseline. Neurovascular The patient has normal vascular on the left side of their body. Axillary: none and decreased Radial: decreased Ulnar: decreased Comment: Hemiparesis with inability to move the LUE REVIEW OF X-RAYS/STUDIES/LABS Assessment/Plan Consuelo Elliott was seen today for pain. 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 PLAN Approximately 30 minutes was spent discussing her ongoing complaints, and providing patient education about available resources. Patient and her significant other expressed ongoing frustrations at her current level of pain. Unfortunately, she has had significant and complex medical history which I feel is contributory to this issue. I feel that her pain is most likely neurogenic in nature. At least strongly recommend she further consult with a pain management specialty. I personally tried calling [facility] and left a message regarding referral. Referral was also placed in the EHR today. Patient's significant other also requested additional referral for assistance in managing her multiple issues. Referral for social work placed as well. Recommended we exhaust all measures prior to proceeding with the shoulder arthroscopy. At the very least, I would strongly advocate that she seek pain management evaluation, advising patient that there would be no guarantees surgery would address her diffuse pain throughout the left upper extremityand base of her neck. All questions were answered. Patient expressed full understanding and agreement of plan. 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 Expected: 01/15/2024 (Approximate), Expires: 12/31/2024 Ambulatory referral to Pain Management Outpatient Referral Routine Hemiparesis affecting left side as late effect of cerebrovascular accident (CMS/HCC) (HCC) Chronic left shoulder pain 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
--- OUTSIDE RECORDS SUMMARY | 2024-03-19 20:52 | XMS_ITS | Encounter Summary ---
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 Machine Operator Name Role Phone Jaden Thakur DO Primary Care Provide r Reason for Visit * Reason Comments Abdominal Pain Nausea Vomiting Diarrhea Encounter Details Date Type Department Care Team (Late st Contact Info) Description 02/11/2024 8:13 PM [facility] - 02/12/2024 1:16 AM [facility] Emergency [facility] Emergency Department [facility] [place] [address] Nicanor Swanson Jr., MD [address] [place] [address] Nausea, vomiting and diarrhea (Primary Dx); Dehydration; [...] on file Legal Sex Female 10:05 AM COMMERCIAL COLLECTOR Gender Identity Not on file Sexual Orientation Not on file documented as of this encounter Last Filed Vital Signs Vital Sign Reading Time Taken Comments Blood Pressure 128/56 02/12/2024 1:00 AM COMMERCIAL COLLECTOR Pulse 88 02/12/2024 1:00 AM COMMERCIAL COLLECTOR Temperature 36.6 ??C (97.9 ??F) 02/12/2024 12:[address] Respiratory Rate 22 02/12/2024 1:00 AM COMMERCIAL COLLECTOR Oxygen Saturation 96% 02/12/2024 1:00 AM COMMERCIAL COLLECTOR Inhaled Oxygen Concentration - - Weight 98.2 kg (216 lb 7.9 oz) 02/11/2024 8:43 P M COMMERCIAL COLLECTOR Height - - Body Mass Index 37.16 01/11/2024 10:25 AM CDT documented in this encounter Discharge Instructions * Discharge Instructions* Nicanor Swanson Jr., MD - 02/11/2024 11:25 PM COMMERCIAL COLLECTOR Increase fluids Drink 8 oz real cranberry juice 4 times a day Return to the emergency department if worsens ERCIAL COLLECTOR * Attachments The following attachments cannot be sent through Care Everywhere. * Effects of a Stroke (General Information) (Cymraes) * Urinary Tract Infection in Women (General Information) (Cymraes) documented in this encounter Medications at Time [...] (two) times a day as needed 11/21/2023 cefdinir (OMNICEF) 300 mg capsule Take 1 capsule (300 mg total) by mouth 2 (two) times a day for 10 days 20 capsule 02/11/2024 4 LORazepam (ATIVAN) 0.5 mg tabletIndications:se izure Take 1 tablet (0.5 mg total) by mouth 2 (two) times a day for 5 doses 5 tablet 10/21/2023 ondansetron ODT (ZOFRAN-ODT) 8 mg disintegrating tablet 02/12/2024 betamethasone dipropionate (DEL-BETA) 0.05 % cream Apply topically 2 (two) times a day 11/13/2023 5 metaxalone (SKELAXIN) 800 mg tablet 11/14/2023 5 ondansetron ODT (ZOFRAN-ODT) 4 mg disintegrating tablet Take 1 tablet (4 mg total) by mouth every 8 (eight) hours as needed 02/06/2024 4 verapamil SR (CALAN SR) 120 mg CR tablet Take 1 tablet (120 mg total) by mouth nightly 4 documented as of this encounter Ordered Prescriptions Prescription Sig Dispense Quantity Refills Last Filled Start Date End Date phenazopyridine (PYRIDIUM) 200 mg tablet Take 1 tablet (200 mg total) by mouth 2 (two) times a day 10 tablet 02/11/2024 cefdinir (OMNICEF) 300 mg capsule Take 1 capsule (300 mg total) by mouth 2 (two) times a day for 10 days 20 capsule 02/11/2024 4 documented in this encounter Discharge Disposition Disposition Code Departure Means Destination Comment s Discharge to home or self care documented in this encounter ED Notes * Nicanor Swanson Jr., MD - 02/11/2024 9:27 PM CST Chief Complaint Patient presents with Abdominal Pain Nausea Vomiting Diarrhea HPI HPI Consuelo Jimenez is a pleasant 43 y.o. white female w/ PMHx including CVA, seizure, HTN, GERD, and L sided hemiparesis presenting to the ED w/ c/o upper mid ABD pain and LLQ pain onset 9x days ago. Pt also endorsing nausea, vomiting, headache, and diarrhea. Pt had a significant CVA last year and has residual L sided hemiparesis. Per pt's , pt has been weak and more confused much more often than normal. He also reports pt has been getting UTIs much more frequently for the past 1-2x months. She was put on Macrobid about 1x week ago and finished them yesterday. Hx of feeding tube with reversal and several ABD surgeries but none since 12/2022. Pt denies fever, chills, sore throat, sinus drainage, dysuria, cough, SOB, chest pain, and any other associated symptoms. She has no other acute complaints at this time. See triage note below: Abdominal pain since 02/02/2024 on Protonix for GERD. Pt reports pain is upper mid abd and lower left. Hx of CVA 10/2022 seen at [facility] for this, residual left- sided paralysis. Pt has hx of feeding tube with reversal and several surgeries on stomach but none since 12/2022. Reports frequent UTI but denies urinary symptoms at this time. Pt does report vomiting green/yellow on 02/09 no emesis today. Pt also reports loose stools. PT states called PCP who deflected pt to the ED for eval. Past Medical History: Diagnosis Date Hypertension Seizure [...] activity: Defer Alcohol Use: Not At Risk (02/19/2024) AUDIT-C Frequency of Alcohol Consumption: Never Average Number of Drinks: Patient does not drink Frequency of Binge Drinking: Never Review of Systems Review of Systems Constitutional: Negative for chills and fever. HENT: Negative for rhinorrhea and sore throat. Respiratory: Negative for cough and shortness of breath. Cardiovascular: Negative for chest pain. Gastrointestinal: Positive for abdominal pain, diarrhea, nausea and vomiting. Genitourinary: Negative for dysuria. Neurological: Positive for weakness and headaches. Psychiatric/Behavioral: Positive for confusion. Physical Exam ED Triage Vitals Temp Pulse Resp BP SpO2 02/11/24191802/11/24191802/11/24191802/11/24191802/11/241918 36.4 ??C (97.5 ??F) 90 20 123/64 95 % Temp src Heart Rate Source Patient Position BP Location FiO2 (%) 02/11/24191802/12/24 0032 02/11/24209902/11/242099 -- Oral Monitor Lying Right arm Height Height Method Weight Weight Method -- -- 02/11/24204202/11/242042 98.2 kg (216 lb 7.9 oz) Bed scale Physical Exam HENT: Head: Comments: Mucous membranes dry. Cardiovascular: Rate and Rhythm: Normal rate and regular rhythm. Pulmonary: Breath sounds: Normal breath sounds. Neurological: Comments: Pt well oriented and a good historian. states pt was confused earlier but is not at time of evaluation. L arm and L leg have severe hemiparesis. Procedures Labs Reviewed URINALYSIS AND REFLEX TO MICROSCOPIC AND CULTURE - Abnormal Result Value Color, ur Yellow Clarity, ur Cloudy (*) Specific gravity, ur 1.032 (*) pH, urine 6.0 Protein, ur ql 1+ (*) Glucose, ur ql Negative Ketones, ur 4+ (*) Bilirubin, ur 1+ (*) Blood, ur Negative Urobilinogen, ur 2.0 (*) Nitrite, ur Negative Leukocyte esterase, ur Negative UA reflex comment Reflex to microscopic UA will be performed. COMPREHENSIVE METABOLIC PANEL - Abnormal Sodium 137 Potassium, pl 3.3 Chloride 99 CO2 21 (*) Anion gap 17 (*) BUN 11 Creatinine 0.50 (*) Glucose 97 Calcium 9.3 Bilirubin, total 0.5 Protein, pl 7.9 Albumin 4.2 Alk phos 65 ALT 74 (*) AST 138 (*) LIPASE - Abnormal Lipase 106 (*) URINALYSIS, MICROSCOPIC ONLY - Abnormal WBC, ur 11-20 (*) RBC, ur 6-10 (*) Epithelial cells, squamous, ur >50 (*) Bacteria, ur 3+ (*) Yeast, ur 1+ (*) Mucous, ur Present (*) Culture Reflex Comment Reflex to urine culture will be performed. URINE CULTURE Report Value: Final Report: Less than 100,000 colonies/mL (clinically insignificant growth based on current clinical standards) Organism (CLINICALLY INSIGNIFICANT GROWTH Narrative: Urine culture reflexed based upon urinalysis results. Testing performed by [facility] ([phone]) CBC WITH AUTO DIFFERENTIAL WBC 8.5 Hgb 14.1 Hct 42.2 Plt 359 MPV 10.4 RBC 4.59 MCV 91.9 MCH 30.7 MCHC 33.4 RDW CV 14.0 RDW SD 47.0 NRBC abs 0.00 TROPONIN T HIGH-SENSITIVITY SERIES (BASELINE, 2HR, 4HR, 6HR) Trop T hs <6 DIFFERENTIAL AUTO Neutrophil abs 5.2 Imm gran abs 0.0 Lymphocyte abs 2.4 Monocyte abs 0.7 Eosinophil abs 0.1 Basophil abs 0.1 Neutrophil pct 61.4 Imm gran pct 0.4 Lymphocyte pct 28.5 Monocyte pct 7.8 Eosinophil pct 1.2 Basophil pct 0.7 TROPONIN T HIGH-SENSITIVITY 2-HOUR Trop T hs <6 Trop T hs delta 0 Trop T hs interp Insignificant EGFR eGFR >90 POCT HCG, URINE HCG, ur, POC Negative Lot Number [id number] QC Backgroud Clear Acceptable QC Control Line Acceptable CT Head WO Contrast Final Result CT Abdomen Pelvis W Contrast Final Result CT head negative for any acute bleed, mass, or evidence of stroke. CT abdomen pelvis with contrast results IMPRESSION: 3.2 cm left ovarian cyst is suspected. Follow-up ultrasound in 6 weeks is suggested to ensure resolution. No findings are seen to clearly explain left lower quadrant pain. No evidence of diverticulitis is seen. THIS IS AN ELECTRONICALLY VERIFIED FINAL REPORT 02/11/2024 11:00 PM - Electronically signed by Liam Begum M.D. BP 128/56 (BP Location: Right arm, Patient Position: HOB 30 degrees) Pulse 88 Temp 36.6 ??C (97.9 ??F) (Oral) Resp 22 Wt 98.2 kg (216 lb 7.9 oz) LMP 01/26/2024 SpO2 96% BMI 37.16 kg/m?? MDM ED Course as of 02/24/241913 Time: 02/10 2317 Comment: Discussed pt's case w/ Dr. Goyal, Hospitalist at [facility], who agrees to accept the pt for aninpatient admission. Anticipate greater than 2 midnight admission. By: Sandy Powell Final diagnoses: Nausea, vomiting and diarrhea Dehydration History of CVA (cerebrovascular accident) This note is prepared by Sandy Powell, acting as a scribe for Nicanor Swanson MD. I electronically signed this note at 7:14 PM on 02/24/2024. I, Nicanor Swanson MD, have personally performed the services described in the documentation, reviewed and edited the documentation which was dictated to the scribe in my presence, and it accurately records my words and actions. Sandy Powell 02/11/242131 Nicanor Swanson Jr., MD 02/24/241913 Nicanor Swanson Jr., MD 02/24/241919 ERCIAL COLLECTOR ERCIAL COLLECTOR * Trevor You RN - 02/11/2024 7:13 PM CST Abdominal pain since 02/02/2024 on Protonix for GERD. Pt reports pain is upper mid abd and lower left. Hx of CVA 10/2022 seen at [facility] for this, residual left- sided paralysis. Pt has hx of feeding tube with reversal and several surgeries on stomach but none since 12/2022. Reports frequent UTI but denies urinary symptoms at this time. Pt does report vomiting green/yellow on 02/09 no emesis today. Pt also reports loose stools. PT states called PCP who deflected pt to the ED for eval. ERCIAL COLLECTOR ERCIAL COLLECTOR documented in this encounter Plan of Treatment Not on file documented as of this encounter Goals Goal Patient Goal Type Associated Problems Recent Progress Patient-Stated? Author CCM Chronic Pain Care Plan Chronic Care Management On track(2023 11:07 AM COMMERCIAL COLLECTOR) No Gianna Chairez, RN Note: Problem: Chronic Pain Goals: 1. Minimize further functional decline 2. Maximize quality of life 3. Control pain Strategies: - Activity/exercise program recommendation - Conservative stepwise pain medicine strategy with multi-disciplinary approach - Recommend healthy lifestyle strategies and compensatory methods as needed documented as of this encounter Procedures Procedure Name Priority Date/Time Associated Diagnosis Comments TROPONIN T HIGH-SENSITIVITY 2-HOUR Timed 02/11/2024 10:[address] ABDOMEN PELVIS W CONTRAST ED 02/11/2024 10:[address] HEAD WO CONTRAST ED 02/11/2024 1 0:16 PM COMMERCIAL COLLECTOR TROPONIN T HIGH-SENSITIVITY SERIES (BASELINE, 2HR, 4HR, 6HR) STAT 02/11/2024 7:51 PM COMMERCIAL COLLECTOR EGFR STAT 02/11/2024 7:51 PM COMMERCIAL COLLECTOR DIFFERENTIAL AUTO STAT 02/11/2024 7:5 1 PM COMMERCIAL COLLECTOR CBC WITH AUTO DIFFERENTIAL STAT 02/11/2024 7:51 PM COMMERCIAL COLLECTOR LIPASE STAT 02/11/2024 7:51 PM COMMERCIAL COLLECTOR COMPREHENSIVE METABOLIC PANEL STAT 02/11/2024 7:51 PM COMMERCIAL COLLECTOR URINALYSIS AND REFLEX TO MICROSCOPIC AND CULTURE STAT 02/11/2024 7:49 PM COMMERCIAL COLLECTOR URINALYSIS, MICROSCOPIC ONLY STAT 02/11/2024 7:49 PM COMMERCIAL COLLECTOR POCT HCG, URINE Routine 02/11/2024 7:49 PM COMMERCIAL COLLECTOR URINE CULTURE STAT 02/11/2024 7:49 PM COMMERCIAL COLLECTOR ECG 12-LEAD STAT 02/11/2024 7:26 PM COMMERCIAL COLLECTOR documented in this encounter Results * Troponin T high-sensitivity 2-hour (02/11/2024 10:28 PM COMMERCIAL COLLECTOR) Trop T hs <6 <=14 ng/L Comment: Interpretive Data For further hscTnT resources including the diagnostic algorithm and an aid in interpretation, copy and paste this link: https://nrl.testcatalog.org/show/hsTrop Current Interpretive Data last revised 2020. Testing performed by: [address] [address] Trop T hs delta 0 ng/L MURALI MORFIN Comment:Testing performed by : [address] [place]., [address] Trop T hs interp Insignificant MURALI MORFIN Comment:Testing performed by : [facility], [address] [place] [address]., [address] Blood 02/11/2024 10:2 8 PM COMMERCIAL COLLECTOR 02/11/2024 10:31 PM COMMERCIAL COLLECTOR us Nicanor Swanson Jr., MD LAB BLOOD ORDERABLES Fi nal Result MURALI [address] [facility] [place] [address] * CT Abdomen Pelvis W Contrast (02/11/2024 10:16 PM COMMERCIAL COLLECTOR) Anatomical Region Laterality Modality Body N/A Computed Tomogra phy 02/11/2024 10:4 3 PM COMMERCIAL COLLECTOR Narrative 02/11/2024 11:00 PM COMMERCIAL COLLECTOR EXAM DESCRIPTION: ?? CT ABDOMEN PELVIS W CONTRAST REASON FOR STUDY: ?? LLQ abdominal pain ?? Abdominal pain since 02/02/2024 on Protonix for GERD. Pt reports pain is upper mid abd and lower left. Hx of CVA 10/2022 seen at [facility] for this, residual left-sided paralysis. Pt [...] PM T: ??02/11/2024 11:00 PM Report ID: [id number] Reading Location: ??[id number] Procedure Note Liam Begum MD - 02/11/2024 EXAM DESCRIPTION: CT ABDOMEN PELVIS W CONTRAST REASON FOR STUDY: LLQ abdominal pain Abdominal pain since 02/02/2024 on Protonix for GERD. Pt reports pain isupper mid abd and lower left. Hx of CVA 10/2022 seen at [facility] for this, residual left-sided paralysis. Pt [...] Liam Begum M.D. KH: JAIMIE Report ID: [id number] Reading Location: [place] [address] us Nicanor Swanson Jr., MD IMG CT PROCEDURES Final Result * CT Head WO Contrast (02/11/2024 10:16 PM COMMERCIAL COLLECTOR) Anatomical Region Laterality Modality Head and Neck N/A Computed Tomogra phy 02/11/2024 10:4 0 PM COMMERCIAL COLLECTOR Narrative 02/11/2024 10:43 PM COMMERCIAL COLLECTOR EXAM DESCRIPTION: CT HEAD WO CONTRAST REASON FOR STUDY: Mental status change, unknown cause ?? Abdominal pain since 02/02/2024 on Protonix for GERD. Pt reports pain is upper mid abd and lower left. Hx of CVA 10/2022 seen at [facility] for this, residual left-sided paralysis. Pt [...] PM T: ??02/11/2024 10:43 PM Report ID: [id number] Reading Location: ??[id number] Procedure Note Liam Begum MD - 02/11/2024 EXAM DESCRIPTION: CT HEAD WO CONTRAST REASON FOR STUDY: Mental status change, unknown cause Abdominal pain since 02/02/2024 on Protonix for GERD. Pt reports pain isupper mid abd and lower left. Hx of CVA 10/2022 seen at [facility] for this, residual left-sided paralysis. Pt [...] Liam Begum M.D. KH: JAIMIE Report ID: [id number] Reading Location: [place] [address] us Nicanor Swanson Jr., MD IM CT PROCEDURES Final Result * eGFR (02/11/2024 7:51 PM COMMERCIAL COLLECTOR) eGFR >90 >=60 mL/min/1. 73 m2 Comment: [...] was last reviewed 2021. Testing performed by: [address] [address] Blood 02/11/2024 7:51 PM COMMERCIAL COLLECTOR 02/11/2024 7:54 PM COMMERCIAL COLLECTOR us Nicanor Swanson Jr., MD LAB BLOOD ORDERABLES Fi nal Result Performing Organization Address City/State/[facility] Co de Phone Number [facility] [address] [facility] [place] [address] * Differential, auto (02/11/2024 7:51 PM COMMERCIAL COLLECTOR) Neutrophil abs 5.2 1.5 - 6.5 K/cumm Comment:Testing performed by : [address] [address] Imm gran abs 0.0 0.0 - 0.1 K/cumm MURALI MORFIN Comment:Testing performed by : [address] [address] Lymphocyte abs 2.4 0.8 - 3.3 K/cumm [facility] Comment:Testing performed by : [address] [address] Monocyte abs 0.7 0.2 - 0.8 K/cumm [facility] Comment:Testing performed by : [address], [place]., [address] Eosinophil abs 0.1 0.0 - 0.5 K/cumm [facility] Comment:Testing performed by : [address] [address] Basophil abs 0.1 0.0 - 0.1 K/cumm [facility] Comment:Testing performed by : [address] [address] Neutrophil pct 61.4 % [facility] Comment: Interpretive Data Percent cell count reference ranges are not reported, since discordance with absolute values may lead to misinterpretation of CBC data. Current Interpretive Data was last revised on 2017. Testing performed by: [address] [address] Imm gran pct 0.4 % [facility] Comment: Interpretive Data Percent cell count reference ranges are not reported, since discordance with absolute values may lead to misinterpretation of CBC data. Current Interpretive Data was last revised on 2017. Testing performed by: [address] [address] Lymphocyte pct 28.5 % [facility] Comment: Interpretive Data Percent cell count reference ranges are not reported, since discordance with absolute values may lead to misinterpretation of CBC data. Current Interpretive Data was last revised on 2017. Testing performed by: [address] [address] Monocyte pct 7.8 % [facility] Comment: Interpretive Data Percent cell count reference ranges are not reported, since discordance with absolute values may lead to misinterpretation of CBC data. Current Interpretive Data was last revised on 2017. Testing performed by: [address] [address] Eosinophil pct 1.2 % [facility] Comment: Interpretive Data Percent cell count reference ranges are not reported, since discordance with absolute values may lead to misinterpretation of CBC data. Current Interpretive Data was last revised on 2017. Testing performed by: [address] [address] Basophil pct 0.7 % MURALI Comment: Interpretive Data Percent cell count reference ranges are not reported, since discordance with absolute values may lead to misinterpretation of CBC data. Current Interpretive Data was last revised on 2017. Testing performed by: [address] [address] Blood 02/11/2024 7:5 1 PM COMMERCIAL COLLECTOR 02/11/2024 7:54 PM COMMERCIAL COLLECTOR Nicanor Swanson Jr., MD LAB BLOOD ORDERABLES Fi nal Result Performing Organization Address [facility] de Phone Number [address] [employer] [place] [address] * Troponin T high-sensitivity series (baseline, 2hr, 4hr, 6hr) (02/11/2024 7:51 PM COMMERCIAL COLLECTOR) Trop T hs <6 <=14 ng/L Comment: Interpretive Data For further hscTnT resources including the diagnostic algorithm and an aid in interpretation, copy and paste this link: https://nrl.testcatalog.org/show/hsTrop Current Interpretive Data last revised 2020. Testing performed by: [address] [address] Blood 02/11/2024 7:51 PM COMMERCIAL COLLECTOR 02/11/2024 7:54 PM COMMERCIAL COLLECTOR Nicanor Swanson Jr., MD LAB BLOOD ORDERABLES Ed ited Result - Final Performing Organization Address [facility] Co de Phone Number CASSANDR[address] [employer] [place] [address] * (ABNORMAL) Lipase (02/11/2024 7:51 PM COMMERCIAL COLLECTOR) Lipase 106(H) 10 - 99 Units/L Comment:Testing performed by : [address] [address] Blood (Blood, Venous) 02/11/2024 7:51 PM COMMERCIAL COLLECTOR 02/11/2024 7:54 PM COMMERCIAL COLLECTOR us Nicanor Swanson Jr., MD LAB BLOOD ORDERABLES Fi nal Result [facility] [address] [facility] [place] [address] * (ABNORMAL) Comprehensive metabolic panel (02/11/2024 7:51 PM COMMERCIAL COLLECTOR) Sodium 137 135 - 145 mmol/L Comment:Testing performed by : [address] [address] Potassium, pl 3.3 3.3 - 4.9 mmol/L MURALI Comment:Testing performed by : [address] [address] Chloride 99 97 - 110 mmol/L MURALI Comment:Testing performed by : [address] [address] CO2 21(L) 22 - 32 mmol/L MURALI Comment:Testing performed by : [address] [address] Anion gap 17(H) 2 - 15 mmol/L MURALI Comment:Testing performed by : [address] [address] BUN 11 6 - 25 mg/dL MURALI Comment:Testing performed by : [address] [address] Creatinine 0.50(L) 0.60 - 1.10 mg/dL MURALI Comment:Testing performed by : [address] [address] Glucose 97 70 - 199 mg/dL MURALI [...] was last revised 2022. Testing performed by: [address] [address] Calcium 9.3 8.5 - 10.3 mg/dL MURALI Comment:Testing performed by : [address] [address] Bilirubin, total 0.5 0.1 - 1.2 mg/dL [facility] Comment:Testing performed by : [address] [address] Protein, pl 7.9 6.5 - 8.5 g/dL MURALI Comment:Testing performed by : [address] [address] Albumin 4.2 3.5 - 5.0 g/dL [facility] Comment:Testing performed by : [address] [address] Alk phos 65 40 - 130 Units/L [facility] Comment:Testing performed by : [address] [address] ALT 74(H) 7 - 45 Units/L [facility] Comment:Testing performed by : [address] [address] AST 138(H) 10 - 45 Units/L [facility] Comment:Testing performed by : [address] [address] Blood 02/11/2024 7:51 PM COMMERCIAL COLLECTOR 02/11/2024 7:54 PM COMMERCIAL COLLECTOR us Nicanor Swanson Jr., MD LAB BLOOD ORDERABLES Fi nal Result MURALI MORFIN [address] [facility] [place] [address] * CBC with auto differential (02/11/2024 7:51 PM COMMERCIAL COLLECTOR) [facility] WBC 8.5 3.8 - 9.9 K/cumm Comment:Testing performed by : [address], [address] Hgb 14.1 11.9 - 15.5 g/dL MURALI Comment:Testing performed by : [address], [address] Hct 42.2 35.6 - 45.5 % MURALI Comment:Testing performed by : [address], [address] Plt 359 150 - 400 K/cumm MURALI Comment:Testing performed by : [address], [address] MPV 10.4 9.1 - 12.3 fL MURALI Comment:Testing performed by : [address], [address] RBC 4.59 3.90 - 5.20 M/cumm MURALI Comment:Testing performed by : [address], [address] MCV 91.9 81.3 - 96.4 fL MURALI Comment:Testing performed by : [address], [address] MCH 30.7 27.1 - 33.3 pg MURALI Comment:Testing performed by : [address], [address] MCHC 33.4 32.3 - 35.7 g/dL MURALI Comment:Testing performed by : [address], [address] RDW CV 14.0 11.1 - 14.9 % MURALI Comment:Testing performed by : [address], [address] RDW SD 47.0 35.7 - 48.1 fL MURALI Comment:Testing performed by : [address], [address] NRBC abs 0.00 0.00 - 0.01 K/cumm MURALI Comment:Testing performed by : [address], [address] Blood (Blood, Venous) 02/11/2024 7:51 PM COMMERCIAL COLLECTOR 02/11/2024 7:54 PM COMMERCIAL COLLECTOR Nicanor Swanson Jr., MD LAB BLOOD ORDERABLES Fi nal Result Performing Organization Address [facility] de Phone Number [address] [address] * Urine culture Urine (02/11/2024 7:49 PM COMMERCIAL COLLECTOR) Report Final Report: Less than 100,000 colonies/mL (clinically insignificant growth based on current clinical standards) Comment:Testing performed by : [facility], [address] [place]., [address] Organism (CLINICALLY INSIGNIFICANT GROWTH MURALI Urine 02/11/2024 7:49 PM COMMERCIAL COLLECTOR 02/12/2024 1:39 AM COMMERCIAL COLLECTOR Narrative MURALI - 02/13/2024 2:21 PM COMMERCIAL COLLECTOR Urine culture reflexed based upon urinalysis results. Testing performed by [facility] ([phone]) Nicanor Swanson Jr., MD LAB MICROBIOLOGY - GENE RAL ORDERABLES Final Result Performing Organization Address [facility] [place] Phone Number [address] [address] * (ABNORMAL) Urinalysis, microscopic only (02/11/2024 7:49 PM COMMERCIAL COLLECTOR) WBC, ur 11-20(A) 0 - 5 /HPF Comment:Testing performed by : [address] [address] RBC, ur 6-10(A) 0 - 2 /HPF MURALI Comment:Testing performed by : [address] [address] Epithelial cells, squamous, ur >50(A) 0 - 5 /HPF UMRALI Comment:Testing performed by : [address] [address] Bacteria, ur 3+(A) MURALI Comment:Testing performed by : [address] [address] Yeast, ur 1+(A) MURALI Comment:Testing performed by : [address] [address] Mucous, ur Present(A) MURALI Comment:Testing performed by : [address] [address] Culture Reflex Comment Reflex to urine culture will be performed. MURALI Comment:Testing performed by : [address] [address] Urine 02/11/2024 7:49 PM COMMERCIAL COLLECTOR 02/11/2024 7:54 PM COMMERCIAL COLLECTOR Nicanor Swanson Jr., MD LAB URINE ORDERABLES Fi nal Result Performing Organization Address City/State/[facility] Co de Phone Number MURALI [address] [facility] Department [place] [address] * POCT hCG, urine (02/11/2024 7:49 PM COMMERCIAL COLLECTOR) HCG, ur, POC Negative Negative Lot Number [id number] QC Backgroud Clear Acceptable QC Control Line Acceptable Urine 02/11/2024 7:49 PM COMMERCIAL COLLECTOR Nicanor Swanson Jr., MD POINT OF CARE TEST ORDDanyelle RABLES Final Result * (ABNORMAL) Urinalysis reflex to microscopic and culture Urine (02/11/2024 7:49 PM COMMERCIAL COLLECTOR) Color, ur Yellow Yellow Comment:Testing performed by : [address] [address] Clarity, ur Cloudy(A) Clear MURALI Comment:Testing performed by : [address] [address] Specific gravity, ur 1.032(H) 1.003 - 1.030 MURALI Comment:Testing performed by : [address] [address] pH, urine 6.0 MURALI Comment: Interpretive Data ? Urine pH is affected by diet, medications, systemic acid-base disturbances, and renal tubular function. ??pH may affect urinary stone formation. ??For example, urine pH below 6.0 may help reduce the tendency for calcium phosphate stones and pH greater than 6.0 may reduce the tendency for uric acid stone formation. Source: [facility] [employer] Current Interpretive Data was last revised on 2017 Testing performed by: [facility], [address] [place] [address], [place]., [address] Protein, ur ql 1+(A) Negative MURALI Comment:Testing performed by : [address], [place]., [address] Glucose, ur ql Negative Negative MURALI Comment:Testing performed by : [address], [place]., [address] Ketones, ur 4+(A) Negative MURALI Comment:Testing performed by : [address], [place]., [address] Bilirubin, ur 1+(A) Negative MURALI Comment:Testing performed by : [address], [place]., [address] Blood, ur Negative Negative MURALI Comment:Testing performed by : [address], [place]., [address] Urobilinogen, ur 2.0(A) <2.0 mg/dL MURALI Comment:Testing performed by : [address] [address] Nitrite, ur Negative Negative MURALI Comment:Testing performed by : [address] [address] Leukocyte esterase, ur Negative Negative MURALI Comment:Testing performed by : [address] [address] UA reflex comment Reflex to microscopic UA will be performed. MURALI Comment:Testing performed by : [address], [place]., [address] Urine 02/11/2024 7:49 PM COMMERCIAL COLLECTOR 02/11/2024 7:54 PM COMMERCIAL COLLECTOR us Nicanor Swanson Jr., MD LAB MICROBIOLOGY - GENE RAL ORDERABLES Final Result Performing Organization Address [facility]/ZIP Co de Phone Number MURALI [address] [facility] Department [place] [address] * ECG 12 lead (02/11/2024 7:26 PM COMMERCIAL COLLECTOR) Pathologist [facility] Ventricular Rate EKG/Min 98 BPM [facility] Atrial Rate 98 BPM [facility] MT-Interval (MSEC) 122 ms [facility] QRS-Interval (MSEC) 90 ms [facility] QT-Interval (MSEC) 384 ms [facility] QTc 490 ms [facility] P [place] 3 degrees [facility] R [place] 15 degrees [facility] T [place] -49 degrees [facility] Diagnosis Normal sinus rhythm RSR' or QR pattern in V1 suggests right ventricular conduction delay ST & T wave abnormality, consider inferior ischemia ST & T wave abnormality, consider anterolateral ischemia Prolonged QT Abnormal ECG No previous ECGs available Confirmed by SULTAN ROSE M.D. ([id number]) on 02/12/2024 9:22:55 AM [facility] 02/11/2024 7:26 PM COMMERCIAL COLLECTOR 02/12/2024 9:22 AM COMMERCIAL COLLECTOR us Nicanor Swanson Jr., MD ECG ORDERABLES Final R esult Performing Organization Address [facility] Co de Phone Number [facility] documented in this encounter Visit Diagnoses Diagnosis Nausea, vomiting and diarrhea- Primary Nausea with vomiting Dehydration History of CVA (cerebrovascular accident) Transient ischemic attack (TIA), and cerebral infarction without residual deficits documented in this encounter Administered Medications Inactive Administered Medications - up to 3 most recent administrations Medication Order MAR Action Action Date Dose Rate Site cefTRIAXone (ROCEPHIN) 2,000 mg/20 mL in sterile water (premix) 2,000 mg 2,000 mg, intravenous, at 240 mL/hr, Administer over 5 Minutes, Once, On 02/11/24 at 2350, For 1 dose, Indications: Urinary Tract/Genitourinary InfectionIndications:U rinary Tract/Genitourinary Infection Given 02/11/2024 11:51 PM COMMERCIAL COLLECTOR 2,000 mg 240 mL/hr ioversoL (OPTIRAY 350) syringe 100 mL 100 mL, intravenous, Once in imaging, contrast, Starting on Sun02/11/24 at 2208, For 1 dose Contrast Given 02/11/2024 10:08 PM COMMERCIAL COLLECTOR 100 mL Right Hand ketorolac (TORADOL) 30 mg/mL injection 30 mg 30 mg, intravenous, Once, On Sun02/12/24 at 0011, For 1 dose, For Adult IV push, administer over 15 seconds Given 02/12/2024 12:12 AM COMMERCIAL COLLECTOR 30 mg sodium chloride 0.9% bolus 1,000 mL 1,000 mL, intravenous, at 1,000 mL/hr, Administer over 1 Hours, Once, On Sun02/11/24 at 2341, For 1 dose New Bag 02/11/2024 11:51 PM COMMERCIAL COLLECTOR 1,000 mL 1000 mL/hr documented in this encounter Active and Recently Administered Medications Times are shown in COMMERCIAL COLLECTOR. Scheduled Medication Order 02/10/2024 02/11/2024 02/12/2024 cefTRIAXone (ROCEPHIN) 2,000 mg/20 mL in sterile water (premix) 2,000 mg (COMPLETED) 2,000 mg, intravenous, at 240 mL/hr, Administer over 5 Minutes, Once, On Sun02/11/24 at 2350, For 1 dose, Indications: Urinary Tract/Genitourinary Infection 2351 (Given - Provider: Jonathon Mauricio, AMBROSE) ketorolac (TORADOL) 30 mg/mL injection 30 mg (COMPLETED) 30 mg, intravenous, Once, On Sun02/12/24 at 0011, For 1 dose, For Adult IV push, administer over 15 seconds 0012 (Given - Provid er: Jonathon Mauricio RN) sodium chloride 0.9% bolus 1,000 mL (COMPLETED) 1,000 mL, intravenous, at 1,000 mL/hr, Administer over 1 Hours, Once, On Sun02/11/24 at 2341, For 1 dose 2351 (New Bag - Provider: Jonathon Mauricio, AMBROSE) 0111 (Stopped - Provider: Jonathon Mauricio RN) PRN Medication Order 02/10/2024 02/11/2024 02/12/2024 ioversoL (OPTIRAY 350) syringe 100 mL (COMPLETED) 100 mL, intravenous, Once in imaging, contrast, Starting on 02/11/24 at 2208, For 1 dose 2208 (Contrast Given - Provider: Isacc Martin, RT) documented in this encounter Orders Nursing Count Last Ordered Date First Orde red Date BLADDER SCAN 1 02/11/2024 IV Count Last Ordered Date First Orde red Date SALINE LOCK IV 1 02/11/2024 documented in this encounter Care Teams Tuber Machine Operator Relationship Specialty Start Date End Date Jaden Thakur DO [address] [place] [address] PCP - General Family Medicine 06/01/23 documented as of this encounter
--- OUTSIDE RECORDS SUMMARY | 2024-03-19 20:52 | XMS_ITS | Encounter Summary ---
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 ??There will be no report generated by a [facility] Radiologist. Narrative [facility] - 12/13/2023 2:14 PM CDT EXAMINATION: ??Images For Reference Purposes Only us Sly Morrison MD IMG IR PROCEDURES Final Re sult [facility] documented in this encounter Visit Diagnoses Not on filedocumented in this encounter Care Teams Router Operator Pin Relationship Specialty Start Date End Date Jaden Thakur DO [address] [place] [address] PCP - General Family Medicine 06/01/23 documented as of this encounter
--- OUTSIDE RECORDS SUMMARY | 2024-03-19 20:52 | XMS_ITS | Encounter Summary ---
Author Organization [facility] Healthcare Address [address] [place] [address] Care Team Providers Care Water Pump Installer Name Role Phone Jaden Thakur Primary Care Provide r Reason for Visit * Reason Onset Date Comments PMC Preprocedure 02/14/2024 Encounter Details Date Type Department Care Team (Late st Contact Info) Description 02/14/2024 Telephone [facility] [address] [facility] [address] [place], [place] [id number] Jacques Acevedo MD [address] [facility] [address] [place], [place] [id number] PMC Preprocedure Social History Tobacco Use Types Packs/Day Years [...] on file Legal Sex Female 10: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 Author CCM Chronic Pain Care Plan Chronic Care Management On track(2023 11:07 AM INTERLOCKER) No Gianna Chairez RN Note: Problem: Chronic Pain Goals: 1. Minimize further functional decline 2. Maximize quality of life 3. Control pain Strategies: - Activity/exercise program recommendation - Conservative stepwise pain medicine strategy with multi-disciplinary approach - Recommend healthy lifestyle strategies and compensatory methods as needed documented as of this encounter Visit Diagnoses Not on filedocumented in this encounter Care Teams Water Pump Installer Relationship Specialty Start Date End Date Jaden Thakur DO [address] [place] [id number] PCP - General Family Medicine 06/01/23 documented as of this encounter
--- OUTSIDE RECORDS SUMMARY | 2024-03-19 20:52 | XMS_ITS | Encounter Summary ---
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
--- OUTSIDE RECORDS SUMMARY | 2024-03-19 20:52 | XMS_ITS | Encounter Summary ---
Author Organization [facility] Address [address] [place] [address] Phone Care Team Providers Care Veneer Gluer Name Role Phone Jaden Thakur DO Primary Care Provide r Encounter Details Date Type Department Care Team (Late st Contact Info) Description 12/17/2023 Orders Only [facility] Cardiology [address] [facility] Medical Office Building [address] [place] [address] Angelica Cochran MD [address] [place] [address] Social History Tobacco Use Types Packs/Day Years [...] on file 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 Gender Identity Not on file Sexual Orientation Not on file documented as of this encounter Plan of Treatment Not on file documented as of this encounter Procedures Procedure Name Priority Date/Time Associated Diagnosis Comments DEVICE CHECK - REMOTE Routine 12/17/2023 1:29 PM CDT documented in this encounter Results * DEVICE CHECK - REMOTE (12/17/2023 1:29 PM CDT) Anatomical Region Laterality Modality Other 12/17/2023 1:29 PM CDT Narrative 01/02/2024 11:28 AM CDT Interpretation Summary: Battery and Leads (BL) Normal battery parameters Presenting Rhythm (AR) Normal Sinus Rhythm Arrhythmic events (AE) No new arrhythmic events in monitoring period Transmission Information (TI) Device Summary Report Implant indication: Cryptogenic Stroke Procedure Note Angelica Cochran MD - 01/02/2024 Interpretation Summary: Battery and Leads (BL) Normal battery parameters Presenting Rhythm (AR) Normal Sinus Rhythm Arrhythmic events (AE) No new arrhythmic events in monitoring period Transmission Information (TI) Device Summary Report Implant indication: Cryptogenic Stroke us Angelica Cochran MD [facility] PROCEDURES Final Result documented in this encounter Visit Diagnoses Not on filedocumented in this encounter Care Teams Veneer Gluer Relationship Specialty Start Date End Date Jaden Thakur DO [address] [place] [address] PCP - General Family Medicine 06/01/23 documented as of this encounter
--- OUTSIDE RECORDS SUMMARY | 2024-03-19 20:52 | XMS_ITS | Encounter Summary ---
Author Organization [facility] Healthcare Address [address] [place] [address] Care Team Providers Care Chief Operator Synthesis Name Role Phone Jaden Thakur Primary Care Provide r Reason for Visit * MRI/CAT/PET Scan (Routine) - Closed Specialty Diagnoses / Procedures Referred By Contac t Referred To Contact Procedures Neuro CT Outside Reference Sly Morrison MD 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 ??There will be no report generated by a [facility] Radiologist. Narrative [facility] - 12/13/2023 1:59 PM CDT EXAMINATION: ??Images For Reference Purposes Only us Sly Morrison MD IMG CT PROCEDURES Final Re sult RAD[facility]PACS[facility] documented in this encounter Visit Diagnoses Not on filedocumented in this encounter Care Teams Chief Operator Synthesis Relationship Specialty Start Date End Date Jaden Thakur DO [address] [place] [address] PCP - General Family Medicine 06/01/23 documented as of this encounter
--- OUTSIDE RECORDS SUMMARY | 2024-03-19 20:52 | XMS_ITS | Encounter Summary ---
Author Organization [facility] Address [address] [facility] [address] [place] [address] Phone Care Team Providers Care Cytology Supervisor Name Role Phone Jaden Thakur DO Primary Care Provide r Reason for Referral * Consultation (Routine) - Pending Review Specialty Diagnoses / Procedures Referred By Jimena t Referred To Contact Neurology Diagnoses Cerebrovascular accident (CVA) due to thrombosis of right middle cerebral artery (HCC) Hemiparesis affecting left side as late effect of cerebrovascular accident (CVA) (CMS/HCC) (HCC) Spastic hemiparesis of left nondominant side as late effect of cerebrovascular disease (CMS/HCC) (HCC) Boo Bruner NP [address] [address] Phone: tel: fax: Marta Rivas MD PhD [address] [place] [address] Phone: tel: fax: Referral ID Status Reason Start Date Expiration Date Visits Requested Visits Authorized [id number] Pending Review Specialty Services Required 01/11/2024 02/09/2025 1 1 Question Answer Please select the performing region: [facility] (All Locations) [[id number]] To provider: MARTA RIVAS [[id number]] # of visits: 1 Reason for Visit * Consultation (Routine) - Authorized Specialty Diagnoses / Procedures Referred By Jimena muller Referred To Contact Neurology Diagnoses Cerebrovascular accident (CVA) due to thrombosis of right middle cerebral artery (HCC) Jaden Thakur DO [address] [place] [address] Phone: tel: fax: [facility] Stroke [address] [facility] [address] [place] [address] Phone: tel: fax: Referral ID Status Reason Start Date Expiration Date Visits Requested Visits Authorized [id number] Authorized Specialty Services Required 12/12/2023 01/10/2025 12 12 Encounter Details Date Type Department Care Team (Late st Contact Info) Description 01/11/2024 10:20 AM CDT Office Visit [facility] Stroke [address] 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 Gender Identity Not on file Sexual Orientation Not on file documented as of this encounter Last Filed Vital Signs Vital Sign Reading Time Taken Comments Blood Pressure 103/61 01/11/2024 10:25 AM CDT Pulse 84 01/11/2024 10:25 AM CDT Temperature - - Respiratory Rate - - Oxygen Saturation - - Inhaled Oxygen Concentration - - Weight 105.7 kg (233 lb) 01/11/2024 10:25 AM CDT Height 162.6 cm (5' 4 ) 01/11/2024 10:25 AM CDT Body Mass Index 39.99 01/11/2024 10:25 AM CDT documented in this encounter Patient Instructions * Patient Instructions* Boo Bruner NP - 01/11/2024 10:20 AM CDT Images from the original note were not included. Dear Consuelo Darby, It was a pleasure to see you in the [facility] Vascular Neurology Clinic. I have highlighted some take-away points from your visit below: Medications: - Continue aspirin 81 mg daily Rehabilitation: - Continue physical therapy Follow-up Plan: - Return for follow-up in this clinic with Vascular Neurologist - Berto Michaud M.D. in 3-6 months. ? - Referral to physical medicine and rehabilitation. - Cardiology - as recommended. - Pain management as scheduled. - Continue to work with your primary care physician on risk factor management and maintaining a healthy lifestyle to help decrease your long-term chance of new/repeat stroke. Because of your history of stroke or TIA, it is extremely important to do everything possible to lower your risk of having stroke in the future. The following measures will help to lower your risk ofstroke: - Antiplatelet therapy: You should Continue the antiplatelet medicine aspirin 81 mg daily, which helps to thin the blood and lower the risk of stroke and heart attack. Do not discontinue this withoutdirections from your doctor. - Blood pressure management: Hypertension (high blood pressure) is the single most important treatable risk factor for stroke, and lowering blood pressure lowers the risk of stroke greatly. The goal is to have your blood pressure be consistently below 130/80, if possible. In other words, less than 130 (top number) and less than 80 (bottom number). I recommend checking your blood pressure at leasta few times a week and keep a blood pressure log at home by writing down the date, time of the day,and blood pressure results - and bring your blood pressure log to your next primary care visit. If you don't have a blood pressure monitor at home, I recommend you purchase one for monitoring. For accurate blood pressure monitoring devices, please consider the devices outlined here: www.validatebp.org. Please select an appropriately sized cuff for your arm by measuring the circumference of your arm for sizing. - Diabetes: Diabetes increases the risk of stroke, heart disease, kidney disease, nerve damage, blindness, and multiple other problems. Because of this, it's important to continue efforts to keep your blood sugar under good control, including following your physician's recommendations for diet, weight loss, and medications. - Physical Activity and weight loss: With the direction of physical therapy and when you are able to, regular exercise is thought to help lower the risk of stroke because they tend to lower blood pressure and cholesterol. If you have heart disease or other possible limitations, discuss exercise with your primary physician or charge entry specialist before getting started on a vigorous exercise program. Exercising in a pool (swimming, walking, or water aerobics/aquatic therapy) is a great option if you have access to one since it is easier on your joints. Exercise after stroke may have a positive effect in recovery and ability to perform activities of daily living. It's important to break up long periods of sedentary time during the day with at least several minutes of standing or up to 30 minutes oflight exercise. Efforts towards weight loss in obese individuals can reduce the risk for stroke andheart disease in the future. - Diet Recommendations: Mediterranean diet: Mediterranean diet is a generic term based on the traditional eating styles of people inhabiting areas around the [place] Sea. This is based on the regular consumption of olive oil as a primary fat source and main cooking ingredient, high intake of plant based foods likefruits, vegetables and legumes, high consumption of whole grains and cereals, dairy products, and low to moderate amounts of fish and chicken (comparatively limited use of red meat and other meat products). Limited amount of sugars, sugary beverages, highly processed foods, and saturated fats. Dietary Approaches to Stop Hypertension (DASH) diet and Heart Healthy diet: Emphasis in foods rich in vegetables, fruits, and and whole grains, fat-free or low-fat dairy products, fish, poultry, beans, nuts, and vegetable oils. Limiting amount of saturated fat such as fatty meats and full fat dairyproducts and tropical oils such as coconut oil, limiting sugar-sweetened beverages and sweets, and lowering sodium intake (2,300 mg or less of salt per day) Saturated vs Unsaturated fats: Targeting lower dietary saturated and trans fats and replacing it with unsaturated fats. Examples of foods with unsaturated fats: salmon, trout, vides, avocados, olives, walnuts and liquid vegetable oils such as soybean, corn, safflower, canola, olive, and sunflower. Plant protein: Replacing meat with plant protein; Examples: beans, lentils, soy, nuts and seeds If you think you are having a stroke, call 911 (don't wait to see if the symptoms go away and don'ttake your own car!) to get to an emergency room as quickly as possible. This is because treatment such as blood clot dissolving medications need to be given within hours of the start of symptoms. Youhave probably heard or read about the warning signs of stroke, but as a reminder, you may be havinga stroke if you have the sudden onset of one or more of the following symptoms: - Weakness or numbness of the face, arm, or leg on one side of the body - Trouble speaking or understanding what people are saying - Loss of vision in one or both eyes - Trouble walking or loss of balance or coordination - Severe headache with no obvious cause Additional Resources Stroke Family Warmline: The Warmline connects stroke survivors and their families with an ASA steam hand who can provide support, helpful information or just a listening ear. Call our Stroke Family Warmline at 7-571-2-STROKE ( ). [place] Stroke Association: They provide comprehensive resources and support for stroke survivors,including online support communities. Website: www.stroke.org National Stroke Association: They offer stroke support groups in various cities across the [place] andonline resources. Website: www.stroke.org Stroke Support Group Finder: This online tool helps you find stroke support groups in any area. Website: www.strokesupport.org Find local or online support groups here: https://www.stroke.org/en/gbqw-yho-xxynfoa/gmheruy-kwwzk-n eader-resources/tzvfhqv-zkjnriq-rqogsj or Indicee.Contacts+/strokeassist Stroke Club: This is a support group hosted by the [facility]. They meetmonthly and provide education and support for stroke survivors and their families. Contact: [facility] Stroke Support Group: This group provides monthly meetings for stroke survivors, their families, and caregivers. Contact: [facility] Stroke Support Group: This group is designed to provide emotional and educational support for stroke survivors and their families. Contact: Virtual connections. Resources for aphasia. (Groups of people with aphasia support group) It is free. All video zoom. https://virtualconnections.Wikia.com/ Thank you for allowing me to participate in your care today. If you have any further questions or concerns, please call into clinic at [phone] or send a message via [employer]. 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 Patient was evaluated for stroke at outside facility [facility]. Stroke Summary (outside records reviewed): Date: 10/19/2022 Symptoms: L sided hemianopsia, L sided gaze palsy, and L sided sensory loss -- Initial CTH 10/19/22: hypoattenuation in the right fronto temporal lobes and the right insula, hyperdense right MCA likely represents acute thrombus -- CTA head and neck: occlusion of the distal M1 segment and 2 proximal M2 segments of the right MCA. Small early M2 segment of the right MCA is patent, some reconstitution of the distal branches. Nolarge arterial occlusions or significant stenoses identified in the head or neck. -- CT Head 10/20/22: large acute area of infarction in the right middle cerebral artery with mass effect and approximately 4 mm of midline shift right to left. --CT Head 10/20/2022: Interval postsurgical changes of decompressive right hemicraniectomy with ICP monior and subdural drain in place. Evolving right middle cerebral territory infarct with ongoing right ot left shift of approximately 4 mm, unchanged from prior. -- CT Head 10/22/2022: stable appearance of postsurgical changes of decompressive right hemicraniectomy for evolving right middle cerebral artery territory infarct. There is significant edema and masseffect with approximately 4 mm midline shift, unchanged from prior. No evidence of new acute ICH. --CT Head 10/23/2022: redemonstration of postsurgical changes of decompressive craniectomy and evolving RMCA territory infarct. Extensive cytotoxic edema and mass effect with approximately 2 mm midline shift, similar or slightly improved from prior. -- MRI Brain 10/24/22: redemonstration of postoperative changes if right hemicraniectomy with expected postsurgical changes, persistent local mass effect on right cerebral hemisphere approximately 3-4mm right to left midline shift, multiple foci of abnormal diffusion within the left frontotemporal lobes associated with T2 flair hyperintensity representing additional small acute to subacute infarcts, likely cardioembolic etiology. --CT cardiac angio 10/25/22: 6 mm lesion involving the noncoronary cusp of the aortic valve, favoredto represent vegetation rather than fibrosed hemangioma. -- CT abd/pelvis 10/25/22: occlusion in R distal external iliac and common femoral -- Doppler US of extremities 11/08/22 showed makeda UE cephaic vein superficial thrombosis -- MRI Brain 11/10/22: interval resolution of midline shift, evolving large volume right MCA territory infarct, increased in cortical enhancement along the right frontal parietal and temporal regions at the site involving infarction including right BG and right periventricular regions could be secondary to evolving subacute infarction however superimposed cerebritis/meningitis cannot be excluded. Small foxus of T2 hyperintensity with peripheral enhancement noted in the right temporal lobe howeverwithout central restricted diffusion also could represent signal focus of evolving subacute infarction versus developing cerebritis. -- LP 11/15/22 unremarkable -- LDL: 91 mg/dL -- SARAH concerning for aortic cusp vegetations -- Intervention: tPA, IVR s/p TICI2b revascularization of the R MCA M1 occlusion 10/19/22; s/p R common femoral thrombectomy and patch angioplasty 10/30/22. -- Antiplatelet/Anticoagulant for Secondary Stroke Prevention: warfarin, INR goal 2-3 Interval History 01/11/2024: Patient presents today with her spouse Salo and her father Yao. Baseline hypertension controlled on medicine. October 19, 2022, found her lying on floor in bathroom, reported she had difficulty with speaking (non-verbal), she doesn't think she fellbut she put herself down on floor. Called EMS, she had difficulty following commands and had left sided weakness, left facial droop. She went to [facility] with an hour and administered thrombolytic, and underwent MT for clot retrieval complicated by malignant edema requiring right hemicraniotomy. Found growth on aortic valve, concern for bacterial endocarditis that was resolved on follow-up SARAH. Per patient hypercoag work-up unrevealing, and no concerning stenosis or atherosclerotic disease. She was on heparin in hospital, she was discharged home on coumadin (difficulty with INR), she was transitioned to lovenox for cranioplasty and after procedure changed to aspirin adult aspirin, then transitioned to baby aspirin. She is now following providers at [facility] (spouse changed work to [facility] and insurances) She is following cardiology Dr. Angelica Cochran MD She has ILR currently, placed Dec 03, 2023, no known findings to date Previous [facility] providers: She was following neurology Dr. Jim Walter outpatient for follow-up. Neurosurgery Dr. Martin. construction specialist: Julio James MD Urologist: Dottie Monreal Dietary Cook: Jayme Michael Vascular surgery: Valdez Clay MD Neuro-ophthalmology She completed inpatient rehab [facility]. She is currently receiving PT twice weekly. She is currently living at home. She has left shoulder pain, she has difficulty moving left shoulder. She was referred to orthopedicsurgeon, has received hydrocortisone injections without improvement. Was planning to have surgery for tear. It was canceled until she sees pain management which is now scheduled 02/12/2024. Ms. Darby reports no new concerning stroke symptoms, specifically no episodes of acute weakness, numbness, balance difficulties, speech changes, or visual issues. Residual symptoms include left arm hemiplegia, left leg hemiparesis using AFO brace and requiring cane for ambulation (walking around athome), pain in left arm, left facial droop, slurred speech when tired, vision loss in LLQ OU, left sided loss of sensation. Reports compliance with medications. Tolerating antiplatelet therapy, no new bleeding side effects,specifically no bleeding in the nose, mouth, bowels or bladder. Patient is tolerating statin therapy, denies gait-limiting myalgia or other concerning side effect. Ms. Darby reports occasional lightheadedness, not monitoring BP at home, usually on low side at doctor's visits. Mood improved on medicine. Memory is stable, no concerns. Current Medications: Current Outpatient Medications Medication aspirin 81 mg enteric coated tablet baclofen (LIORESAL) 5 mg tablet busPIRone (BUSPAR) 5 mg tablet cetirizine 10 mg tablet,disintegrating cholecalciferol 25 mcg (1,000 unit) tablet cyclobenzaprine (FLEXERIL) [address] (CYMBALTA) 60 mg capsule fluconazole (Diflucan) 150 mg tablet HYDROcodone-acetaminophen (NORCO) 10-325 mg per tablet hydrOXYzine (ATARAX) 25 mg tablet levETIRAcetam (KEPPRA) 1,000 mg tablet metoprolol tartrate (LOPRESSOR) 25 mg immediate release tablet pantoprazole DR (PROTONIX) 40 mg EC tablet polyethylene glycol (MIRALAX) 17 gram packet ubrogepant (UBRELVY) 100 mg tablet verapamil SR (CALAN SR) 120 mg CR tablet betamethasone dipropionate (DEL-BETA) 0.05 % cream LORazepam (ATIVAN) 0.5 mg tablet metaxalone (SKELAXIN) 800 mg tablet No current facility-administered medications for this visit. Past Medical History: Past Medical History: Diagnosis Date Hypertension Seizure (HCC) Seizure disorder (CMS/HCC) (HCC) 09/25/2023 Stroke (HCC) Past Surgical History: Past Surgical History: Procedure Laterality Date SECTION x2 Family History: Family History Problem Relation Age of Onset Osteoporosis Other Blood Clot Other Social History: Social History Tobacco Use Smoking status: Former Types: Cigarettes Passive exposure: Past Smokeless tobacco: Never Substance and Sexual Activity Drug use: None Sexual activity: None Alcohol Use: Not At Risk (01/01/2024) AUDIT-C Frequency of Alcohol Consumption: Never Average Number of Drinks: Patient does not drink Frequency of Binge Drinking: Never Review of Systems Review of systems per HPI and otherwise all systems are negative. Physical Exam: Vitals: Vitals: 01/11/24 1025 BP: 103/61 BP Location: Right arm Patient Position: Sitting Pulse: 84 Weight: 105.7 kg (233 lb) Height: 162.6 cm (5' 4 ) General: The patient is in no acute distress and appears comfortable at rest. HEENT: Normocephalic, atraumatic, mucous membranes moist. Respiratory: Non-labored breathing. Extremities: Warm and well-perfused. No edema. Wearing left arm brace. Skin: Warm and dry. Without any rashes or ecchymoses, no signs of injury. Psychiatric: Normal affect. Mental status: Awake, fully alert and oriented, following all commands and appropriately interactive, appropriate in conversation to recent and remote events. Test for delayed word recall: patient recalled 3/3 word(s) with no cue. Language: Provides a coherent history. Fluent without dysarthria, naming and repetition intact. Cranial nerves: Pupils equal, round and reactive to light; visual torres absent in LLQ in OU, otherwise full to confrontation testing; extraocular movements intact; facial decreased sensation in leftface to soft touch and pinprick; left facial droop; palate elevates symmetrically; tongue protrudesmidline. Motor: Antigravity without drift, 5/5 strength in the bilateral upper and lower extremities. Sensory: Absent to light touch in left upper and lower extremities, at times intact to pinprick in left extremities Gait: Not evaluated, has AFO brace left lower extremity. No assisted device used. Cerebellar: no ataxia on finger to nose bilaterally, heel to schwartz intact, no tremor Modified Rajesh Score (mRS): 3 Results: Imaging Results: Results reviewed in EMR as outlined above. No results found. Assessment/Plan 1. Cerebrovascular accident (CVA) due to thrombosis of right middle cerebral artery (HCC) 2. Hemiparesis affecting left side as late effect of cerebrovascular accident (CVA) (CMS/HCC) (HCC) 3. Spastic hemiparesis of left nondominant side as late effect of cerebrovascular disease (CMS/HCC)(HCC) Consuelo Darby is a 43 y.o. year old right handed female with a past medical history significant for right MCA syndrome 10/19/22 involving the R frontotemporal hypodensity secondary to right M1 occlusion s/p TNK and MT with TICI2b recanalization complicated by malignant edema requiring hemicraniotomy ([facility]), R iliac and common femoral artery occlusion s/p thrombectomy 10/30/22, migraine, GERD, GENESIS, former smoker, and seizure-like events 06/01/23 and 08/29/23 evaluated in EMU and video-EEG notable for left temporal and right parietal sharps currently on ASM. -Stroke Anatomy/Vascular Territory: right MCA territory infarct -Stroke etiology: ESUS vs cardioembolic (there was concern for Libman-Sacks endocarditis), she now has ILR for cardiac monitoring placed 12/03/23 Presents to vascular neurology outpatient clinic for stroke follow-up and is assisted by her and father. Her residual symptoms from stroke include left arm hemiplegia, left leg hemiparesis using AFO brace and requiring cane for ambulation (walking around at home), pain in left arm, left facial droop, slurred speech when tired, vision loss in LLQ OU, left sided loss of sensation. She is receiving physical therapy twice weekly. She has left shoulder pain and difficulty with range of motion, she has seen an orthopedic surgeon for hydrocortisone injections without improvement. She will see pain management 02/12/24. We discussed referral to PMR for assessment for stroke rehabilitation andremerond follow-up with vascular neurologist for stroke follow-up. Plan: Stroke Risk Factor Modification/Stroke Prevention: Continue antiplatelet aspirin 81 mg daily for stroke prevention. Heart rhythm monitoring with ILR per cardiology. Target BP less than 130/80 in accordance with current guidelines. Recommend lipid monitoring and to target LDL goal less than 70 mg/dL. Diet recommendations include the Mediterranean style, Heart Healthy diet, and low sodium diet. Rehabilitation evaluation and plan: continue PT, referral to PMR Follow-up: I will plan on having the patient return to the clinic in 3-6 months to monitor symptomsand response to therapy Precautions for stroke symptoms discussed today. Patient was instructed to?call and seek emergent care?if experiencing any new or worsening symptoms including sudden vision changes, worst headache of life, new onset speech abnormalities or slurred speech, unexplained persistent dizziness, sudden one- sided weakness, sudden numbness or tingling on one side of the body or face. The patient/family/caregiver indicated their understanding and agreement with these recommendations and plan of care. In this encounter, I spent from 1030 to 1145 face to face with the patient. I spent 15 minutes on the day of the visit on other activities related to the visit such as preparing to see the patient, counseling and educating the patient/family/caregiver, ordering medications, tests or procedures, referring and communicating with other healthcare professionals, documenting clinical information in the electronic or other health record, independently interpreting results and communicating the results to the patient/family/caregiver, and/or care coordination. I spent additional time after the visitreviewing 84 pages + 12 pages from outside records. Thank you for allowing me to participate in the care of your patient. If you have any questions, feel free to contact the Stroke Center's Office at . Sincerely, Boo Bruner, MSN, PSYCHOLOGY LECTURER, A-GNP-C Nurse Practitioner [facility] TLIGHT LOADING SUPERVISOR documented in this encounter Plan of Treatment Scheduled Referrals Name Type Priority Associated Diagnoses Orde r Schedule Ambulatory referral to Neurology Outpatient Referral Routine Cerebrovascular accident (CVA) due to thrombosis of right middle cerebral artery (HCC) Hemiparesis affecting left side as late effect of cerebrovascular accident (CVA) (CMS/HCC) (HCC) Spastic hemiparesis of left nondominant side as late effect of cerebrovascular disease (CMS/HCC) (HCC) Expected: 01/25/2024 (Approximate), Expires: 01/10/2025 documented as of this encounter Visit Diagnoses Diagnosis Cerebrovascular accident (CVA) due to thrombosis of right middle cerebral artery (HCC)- Primary Hemiparesis affecting left side as late effect of cerebrovascular accident (CVA) (CMS/HCC) (HCC) Spastic hemiparesis of left nondominant side as late effect of cerebrovascular disease (CMS/HCC) (HCC) documented in this encounter Orders Outpatient Referral Count Last Ordered Date Fir st Ordered Date AMB REFERRAL TO NEUROLOGY 1 01/11/2024 documented in this encounter Care Teams Cytology Supervisor Relationship Specialty Start Date End Date Jaden Thakur DO [address] [place] [id number] PCP - General Family Medicine 06/01/23 documented as of this encounter
--- OUTSIDE RECORDS SUMMARY | 2024-03-19 20:52 | XMS_ITS | Encounter Summary ---
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
--- OUTSIDE RECORDS SUMMARY | 2024-03-19 20:52 | XMS_ITS | Encounter Summary ---
Author Organization [facility] Healthcare Address [address] [place] [address] Care Team Providers Care Outreach Consultant Name Role Phone Jaden Thakur Primary Care Provide r Reason for Visit * MRI/CAT/PET Scan (Routine) - Closed Specialty Diagnoses / Procedures Referred By Contac t Referred To Contact Procedures Neuro CT Outside Reference Sly Morrison MD [address] [facility] [address] [place] [address] Phone: tel: fax: Referral ID Status Reason Start Date Expiration Date Visits Re quested Visits Authorized [id number] Closed 12/13/2023 01/11/2025 1 1 Encounter Details Date Type Department Care Team (Latest Contact Info) Description 12/13/2023 2:09 PM CDT - 12/13/2023 11:59 PM CDT Hospital Encounter [facility] [address] [place] [address] Discharge Disposition: Discharge to home or self [...] on file 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 ??There will be no report generated by a [facility] Radiologist. Narrative [facility] - 12/13/2023 2:09 PM CDT EXAMINATION: ??Images For Reference Purposes Only us Sly Morrison MD IMG CT PROCEDURES Final Re sult [facility]ACS[facility] documented in this encounter Visit Diagnoses Not on filedocumented in this encounter Care Teams Outreach Consultant Relationship Specialty Start Date End Date Jaden Thakur DO [address] [place] [id number] PCP - General Family Medicine 06/01/23 documented as of this encounter
--- OUTSIDE RECORDS SUMMARY | 2024-03-19 20:52 | XMS_ITS | Encounter Summary ---
Author Organization [facility] Healthcare Address [address] [place] [address] Care Team Providers Care Carrot Grader Inspector Name Role Phone Jaden Thakur Primary Care Provide r Reason for Referral * Consultation (Routine) - Authorized Specialty Diagnoses / Procedures Referred By Jimena muller Referred To Contact Diagnoses Chronic left shoulder pain Chronic left hip pain Jacques Acevedo MD [address] [place] [address] [address] [place] [address] Phone: tel: fax: [facility] [address] [place] [address] 14th [place] [address] [place] [address] Phone: tel: Referral ID Status Reason Start Date Expiration Date Visits Requested Visits Authorized [id number] Authorized Specialty Services Required 02/12/2024 08/13/2025 1 1 Question Answer Please select the performing region: [facility] (All Locations) [[id number]] Please select the performing department: [facility] [[id number]] # of visits: 1 RA TECHNICIAN * Diagnostic Imaging (Routine) - Closed Specialty Diagnoses / Procedures Referred By Conttorin t Referred To Contact Diagnoses Chronic left hip pain Procedures Imaging Trigger Point INJ 1-2 Muscle Groups () Jacques Acevedo MD [facility] [address] [place] [address] Phone: tel: fax: [address] [phone] Referral ID Status Reason Start Date Expiration Date Visits Re quested Visits Authorized [id number] Closed 02/12/2024 03/13/2025 1 1 RA TECHNICIAN * Consultation (Routine) - Pending Review Specialty Diagnoses / Procedures Referred By Jimena t Referred To Contact Pain Management Diagnoses Hemiparesis affecting left side as late effect of cerebrovascular accident (CMS/HCC) (HCC) Chronic left shoulder pain 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 Shruti Pendleton PA [address] [place] [address] Phone: tel: fax: [address] [phone] Referral ID Status Reason Start Date Expiration Date Visits Requested Visits Authorized [id number] Pending Review Specialty Services Required 01/30/2025 1 1 Question Answer Please select the performing region: [facility] [152] # of visits: 1 Comments Eval/treat left sided pain following CVA (2022) with associated nerve pain, muscle spasms and hemiparesis RA TECHNICIAN Reason for Visit * Reason Comments Shoulder Pain Hip Pain * Consultation (Routine) - Pending Review Specialty Diagnoses / Procedures Referred By Jimena muller Referred To Contact Pain Management Diagnoses Hemiparesis affecting left side as late effect of cerebrovascular accident (CMS/HCC) (HCC) Chronic left shoulder pain 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 [address] [facility] [address] [place] [address] Jacques Acevedo MD [address] [facility] [address] [place] [address] Chronic left hip pain (Primary Dx); Hemiparesis [...] on file Legal Sex Female 10:05 AM CAMERA TECHNICIAN Gender Identity Not on file Sexual Orientation Not on file documented as of this encounter Last Filed Vital Signs Vital Sign Reading Time Taken Comments Blood Pressure 117/61 02/12/2024 9:08 AM CAMERA TECHNICIAN Pulse 86 02/12/2024 9:08 AM CAMERA TECHNICIAN Temperature 36.4 ??C (97.5 ??F) 02/12/2024 9:08 AM CS T Respiratory Rate 10 02/12/2024 9:08 AM CAMERA TECHNICIAN Oxygen Saturation 97% 02/12/2024 9:08 AM CAMERA TECHNICIAN Inhaled Oxygen Concentration - - Weight 105.7 kg (233 lb) 02/12/2024 9:08 AM CAMERA TECHNICIAN Height 162.6 cm (5' 4 ) 02/12/2024 9:08 AM CAMERA TECHNICIAN Body Mass Index 39.99 02/12/2024 9:08 AM CAMERA TECHNICIAN documented in this encounter Discharge Instructions * Patient Instructions* Sunshine Scott RN - 02/12/2024 9:30 AM CAMERA TECHNICIAN [facility] DISCHARGE INSTRUCTIONS MEDICATIONS: [x] Continue your current home medications Start: [] Notify your pharmacy for refill(s) 7 days before you are out of your medication. [] Opioid (Narcotic) Agreement signed and patient received copy. [] Side Effects of Opioid Medications given to patient today's visit: Initial Visit DIET: [x] Resume normal diet [] See [facility] Post Discharge Procedure Information Sheet ACTIVITY: [x] Resume normal activity [] See [facility] Post Discharge Procedure Information Sheet REFERRALS: Physical Therapy [] [facility] Physical Therapy ([phone]) [] [facility] (Graded Motor Imag[employer]) [] [facility] ([phone]) Option 1 [] [facility] (Graded Motor Imagery) [] [facility] ([phone]) [] Other: Behavior Medicine [x] Pain Psychologist, [facility] Pain Psychology Please call to schedule appointment [phone] or [phone] Diagnostic Test(s): May get Radiographs performed in Radiation/X-Ray 6th floor, [address]. [] Please call to schedule MRI or CT scan at [phone] [] Please call to schedule EMG at [phone] EDUCATION provided on the following: [] Spinal Cord Stimulator Education and DVD. Vendor: FOLLOW UP APPOINTMENTS: [] Return as needed [] Follow up appointment: We will contact you the next business day to obtain: [] An update on your condition [] Your Pain diary scores [x] Procedure at your next visit : Trigger point Injections INSTRUCTIONS before your next procedure: [] See [facility] Pre-Procedure Information Sheet [] Do not eat or drink for six (6) hours before the time/date of the procedure. [] Inquire with your prescribing provider if ok to hold blood thinner for ( ) days before procedure. [] Blood work required 2 hours before procedure: [] Center Medical Specialist needed for next procedure [] Pre Procedure instructions will be sent through [employer] or by phone two working days prior to procedure. *Need help with [employer]? Call [phone]. Patient provided information and repeated back with understanding. If you need to reach us: For any questions about your procedure, please call the Pain Management Center [phone] (M-F) (8am-4pm) If you need urgent attention after 5 pm and weekends: Call the [facility] Substation Operator Conversion at [phone] and ask for the Pain Service doctor biofuels production manager. RA TECHNICIAN documented in this encounter Medications at Time [...] or self care documented in this encounter Progress Notes * Sunshine Scott, AMBROSE - 02/12/2024 9:30 AM CST Level 5 Escorted patient to exam room. Obtained vital signs. Reviewed patient's allergies and current medications. Obtained and verified patient's complex medical/surgical history. Confirmed the reason for visit with the patient. Obtained the following screening assessments: [x] Modified Oswestry Low Back Pain Questionnaire [x] PMC Intake Questionnaire [] PMC Follow up Questionnaire [] Fall Risk Assessment (More, Rere Cali, Pat) [] Depression/Anxiety Assessment (GAD7, PHQ-9, [place] Suicide, Ng Depression) [] Disability Scale [] CAGE [] SOAPP-R Additional tasks included: [] Random medication adherence check (pill verification by two nurses) [] Work/school note written [] Wound/skin check/dressing change [] Pain assessment for more than one site [] Coordination of multiple or complex referrals or imaging studies [] Anticoagulant therapy coordination on day of visit [] Monitoring or assistance in patient physical exam or assessment [] Expanded evaluation and/or monitoring of vital signs [] Administration of medication by the clinical staff [] Specimen/lab preparation and collection [] Emergency medical care or intervention [] Call an ACT, OTOLARYNGOLOGIST, or transfer to a higher level of care [] Coordination of direct admission or urgent/emergent surgery [] Vital Signs Temp: 97.5 ??F (36.4 ??C) Pulse: 86 Resp: 10 BP: 117/61 SpO2: 97 % Post-visit transport confirmed with the patient. Total time spent for patient care, education, and care coordination was approximately greater than 41 minutes. RA TECHNICIAN * Jacques Acevedo MD - 02/12/2024 9:30 AM CST Patient Name: Consuelo Darby : 1980 Today's Date: 02/12/2024 PCP: Jaden Thakur DO Referring: Jossie Unknown Chief Complaint Patient presents with Shoulder Pain Hip Pain HPI: Ms. Consuelo Darby is a 43 y.o. female who was [...] -- METAXALONE (SKELAXIN) 800 MG TABLET Authorizing [place]: Armand Jacinto MD Notes: -- METOPROLOL TARTRATE [...] left. Hx of CVA 10/2022 seen at [facility] for this, residual left-sided paralysis. Pt [...] and without oral contrast using helical scanning technique [...] PERITONEUM: No ascites or free air. RETROPERITONEUM: Nomass or adenopathy. REPRODUCTIVE: 3.2 cm left ovarian cyst is suspected. VASCULATURE: No abdominal a ortic aneurysm. MUSCULOSKELETAL: No significant abnormality. OTHER: No [...] Liam Begum M.D. KH: JAIMIE Report ID: [id number] Reading Location: [id number] CT Head WO Contrast Result Date: 02/11/2024 Narrative: EXAM DESCRIPTION: CT HEAD WO CONTRAST REASON FOR STUDY: Mental status change, unknown cause Abdominal pain since 02/02/2024 on Protonix for GERD. Pt reports pain is upper mid abd and lowerleft. Hx of CVA 10/2022 seen at [facility] for this, residual left-sided paralysis. Pt [...] Liam Begum M.D. KH: JAIMIE Report ID: [id number] Reading Location: [place] [address] DEVICE CHECK - REMOTE Result Date: 02/03/2024 Narrative: Interpretation Summary: Battery and Leads (BL) Normal battery parameters Presenting Rhythm (TX) Normal Sinus Rhythm Arrhythmic events (AE) No [...] Jacques Acevedo MD Attending Physician, Pain Management [facility], [facility] RA TECHNICIAN documented in this encounter Plan of Treatment Scheduled Referrals Name Type Priority Associated Diagnoses Orde r Schedule Ambulatory referral to Pain Management Outpatient Referral Routine Hemiparesis affecting left side as late effect of cerebrovascular accident (CMS/HCC) (HCC) Chronic left shoulder pain 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 Author CCM Chronic Pain Care Plan Chronic Care Management On track(2023 11:07 AM CAMERA TECHNICIAN) Gianna Crane, RN Note: Problem: Chronic Pain Goals: 1. Minimize further functional decline 2. Maximize quality of life 3. Control pain Strategies: - Activity/exercise program recommendation - Conservative stepwise pain medicine strategy with multi-disciplinary approach - Recommend healthy lifestyle strategies and compensatory methods as needed documented as of this encounter Results * Imaging Trigger Point INJ 1-2 Muscle Groups () (02/19/2024 12:16 PM CAMERA TECHNICIAN) Narrative RAD_P[facility] - 02/19/2024 12:16 PM CAMERA TECHNICIAN The images from this study are not interpreted by Radiology. ??Please refer to the physician's procedure / OR operative note. 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 ondansetron ODT (ZOFRAN-ODT) 4 mg disintegrating tablet Take 1 tablet (4 mg total) by mouth every 8 (eight) hours as needed 02/06/2024 baclofen (LIORESAL) 10 mg tablet Take 1 tablet (10 mg total) by mouth daily 01/30/2024 added in this encounter Care Teams Carrot Grader Inspector Relationship Specialty Start Date End Date Jaden Thakur DO [address] [place] [id number] PCP - General Family Medicine 06/01/23 documented as of this encounter
--- OUTSIDE RECORDS SUMMARY | 2024-03-19 20:52 | XMS_ITS | Clinical Summary ---
Author Organization [facility] [address] [place] Address [address] [place] [address] [address] [place] [address] Care Team Providers Care Duco Polisher Name Role Phone Jaden Thakur DO Primary Care Provide r Allergies Active Allergy Reactions Criticality Noted Date [...] 03/19/2024 Assessment & Plan (03/19/2024 12:05 PM IS SUPPORT ANALYST): 03/13/2024 OSH MIS hysterectomy for significant menorrhagia with a repaired enterotomy ---will follow up surgical pathology Septic shock 03/17/2024 Assessment & Plan (03/18/2024 2:13 PM IS SUPPORT ANALYST): Admitted through ED with lactate level 6.9>4.6>3.4>1.4 Resuscitated with IVF and lactate improved over time. BP improved slowly /6 HDS, however remains mildly tachycardic with HR 110's. Home metoprolol changed to IV and started. 1/7 HDS, remains mildly tachycardic. RESOLVED Ileus, postoperative (CMS/HCC) 03/17/2024 Assessment & Plan (03/19/2024 11:59 AM IS SUPPORT ANALYST): Minimally invasive hysterectomy for significant menorrhagia with [...] of infection. Abdomen soft, distended, TTP diffusely. 03/18 Lap sites clean with derma carter, no [...] follow up in OT/PT and with an grade tamper at [facility] for prism therapy. No further intervention warranted at present. Counseled regarding fall risk. F/u Seizure 10/15/2023 Seizure disorder (CMS/HCC) 09/25/2023 Assessment & Plan (03/18/2024 2:20 PM IS SUPPORT ANALYST): With CVA in 2022 she underwent a hemicraniectomy with bone flap removal. Replace in separate surgery and was placed on keppra for seizure precaution. She was on keppra for about 6 months and tried to wean off but had a seizure. Decision made to remain on Keppra fdc. -Home medication: Keppra 1500 mg BID -IV surrogate started while NPO. 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 It is unclear the etiology of her stroke. The [facility] medication 12/14/2022 note says that she had M1 occlusion cleared by mechanical thrombectomy. 03/[address] [facility] shows no new large acute territory infarct [...] time. 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 Left-sided sensory deficit present 10/19/2022 Elevated fasting glucose 11/07/2019 GERD (gastroesophageal reflux disease) Assessment & Plan (03/17/2024 4:26 PM IS SUPPORT ANALYST): Home medication: pantoprazole 40 mg daily -IV Pantoprazole started. Seasonal allergies 04/10/2019 Encounters Date Type Department Care Team Description 03/16/2024 2:20 PM IS SUPPORT ANALYST - Present Hospital Encounter [facility] [address] [phone] Bobby Cardona MD [place], MD Ju[place], Tonio Kellogg MD Septic shock (HCC) (Primary Dx); Peritonitis (HCC) 02/19/2024 10:57 AM IS SUPPORT ANALYST - 02/19/2024 11:59 PM IS SUPPORT ANALYST Hospital Encounter [facility] [address] [place] [address] Advanced Medicine [address] [place] [address] Jacques Acevedo MD Myalgia (Primary Dx); Chronic left hip pain; Tendinopathy of left rotator cuff Discharge Disposition: Discharge to home or self care 02/18/[address] [facility] Cardiology [address] [facility] [address] [place] [address] Angelica Cochran MD 02/14/[address] [facility] Advanced [facility] [address] [place] [address] Advanced Medicine [address] [place] [address] Jacques Acevedo MD [facility] Preprocedure 02/12/2024 8:54 AM IS SUPPORT ANALYST - 02/12/2024 11:59 PM IS SUPPORT ANALYST Hospital Encounter 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 Cardiology [address] [facility] [address] [place] [phone] Angelica Cochran MD 01/11/2024 10:20 AM CDT Office Visit [facility] Stroke [address] [facility] [address] [place] [address] Boo Bruner NP Cerebrovascular accident (CVA) due to thrombosis of right middle cerebral artery (HCC) (Primary Dx); Hemiparesis affecting left side as late effect of cerebrovascular accident (CVA) (CMS/HCC) (HCC); Spastic hemiparesis of left nondominant side as late effect of cerebrovascular disease (CMS/HCC) (HCC) 01/07/2024 1:50 PM CDT E-Visit [facility] Care [address] [place] [phone] Oksana Wills NP Your Medications 01/07/2024 Patient Self-Triage [facility] [address] [place] [address] Eyal, Generic Provider 01/01/2024 10:00 AM CDT Office Visit [facility] Orthopedic and Sports Medicine [address] [place] [phone] Shruti Pendleton PA Chronic left shoulder pain (Primary Dx); Hemiparesis affecting left side as late effect of cerebrovascular accident (CMS/HCC) (HCC); 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 Cardiology [address] [facility] [address] [place] [address] Presence of electronic cardiac device (Primary Dx); Cryptogenic stroke (HCC) from Last 3 Months Surgical History Surgery Date Site/Laterality Comments SECTION x2 Medical History Medical History Date Comments Stroke (HCC) Hypertension Seizure (HCC) Seizure disorder (CMS/HCC) (HCC) 09/25/2023 Family History Medical History Relation Name Comments Blood Clot Other Osteoporosis Other Relation Name Status Comments Other Social History Tobacco Use Types Packs/Day Years [...] on file Legal Sex Female 10:05 AM IS SUPPORT ANALYST Gender Identity Not on file Sexual Orientation Not on file Obstetrics History Last Filed Vital Signs Vital Sign Reading Time Taken Comments Blood Pressure 132/74 03/19/2024 8:14 PM IS SUPPORT ANALYST Pulse 97 03/19/2024 8:14 PM IS SUPPORT ANALYST Temperature 36.7 ??C (98.1 ??F) 03/19/2024 8:10 PM CS T Respiratory Rate 16 03/19/2024 8:10 PM IS SUPPORT ANALYST Oxygen Saturation 95% 03/19/2024 8:10 PM IS SUPPORT ANALYST Inhaled Oxygen Concentration - - Weight 102.2 kg (225 lb 5 oz) 03/19/2024 9:33 AM IS SUPPORT ANALYST Height 162.6 cm (5' 4.02 ) 03/19/2024 9:33 AM CS T Body Mass Index 38.66 03/19/2024 9:33 AM IS SUPPORT ANALYST Plan of Treatment Health Maintenance Due Date Last Done Comments Breast Cancer Screening-Mammogram 1982 Depression Screening 1982 Hepatitis C Screening 1982 Varicella Vaccines (1 of 2 - 13+ 2-dose series) 11/02/1995 Hepatitis B Screening 2000 Regular Well Visit/Exam 18-64 2000 Covid-19 Vaccine ( season) 2023 01/09/2022, 03/09/2021, 03/25/2020, Additional history exists Influenza Vaccine (#1) 2023 3, 12/10/2021, 12/13/2020, Additional history exists DTaP/Tdap/Td Vaccine (2 - Td or Tdap) 12/20/2025 12/21/2015 Pneumococcal vaccine <65 Aged Out 02/15/2023 No longer eligible based on patient's age to complete this topic HPV Vaccines Aged Out No longer eligi ble based on patient's age to complete this topic Goals Goal Patient Goal Type Associated Problems Recent Progress Patient-Stated? Author CCM Chronic Pain Care Plan Chronic Care Management On track(2023 11:07 AM IS SUPPORT ANALYST) No Gianna Chairez, RN Note: Problem: Chronic Pain Goals: 1. Minimize further functional decline 2. Maximize quality of life 3. Control pain Strategies: - Activity/exercise program recommendation - Conservative stepwise pain medicine strategy with multi-disciplinary approach - Recommend healthy lifestyle strategies and compensatory methods as needed Medical Devices Implanted Type Area Equal Opportunity Representative Device Identifier Shelf Expiration Date Model / Serial / Lot PowerPot Monitor Lux-Dx Ii Insertable Tube Building Machine Operator M312 - [id number] - [id number] Implanted:Qty : 1 on 12/03/2023 by Angelica Cochran MD at [facility] Implantable Loop Recorder Left: Chest [employer] Partha 02/22/2025 [id number] / [id number] / Procedures * The patient is currently admitted. The information in this section might not be complete until the patient is discharged. Procedure Name Priority Date/Time Associated Diagnosis Comments MRI BRAIN W WO CONTRAST ED Urgent/IP Urgent 03/19/2024 12:21 PM IS SUPPORT ANALYST EGFR Routine 03/19/2024 1:59 AM IS SUPPORT ANALYST CBC WITHOUT DIFFERENTIAL Routine 03/19/2024 1:59 AM IS SUPPORT ANALYST PHOSPHORUS Routine 03/19/2024 1:59 AM IS SUPPORT ANALYST MAGNESIUM Routine 03/19/2024 1:59 AM IS SUPPORT ANALYST BASIC METABOLIC PANEL Routine 03/19/2024 1:59 AM IS SUPPORT ANALYST XR ABDOMEN AP 1 VIEW IP Routine 03/18/2024 11:45 AM IS SUPPORT ANALYST HEPATIC FUNCTION PANEL STAT 03/18/2024 10:08 AM IS SUPPORT ANALYST EGFR Routine 03/17/2024 9:03 PM IS SUPPORT ANALYST PROTIME-INR Routine 03/17/2024 9:03 PM IS SUPPORT ANALYST CBC WITHOUT DIFFERENTIAL Routine 03/17/2024 9:03 PM IS SUPPORT ANALYST PHOSPHORUS Routine 03/17/2024 9:03 PM IS SUPPORT ANALYST MAGNESIUM Routine 03/17/2024 9:03 PM IS SUPPORT ANALYST BASIC METABOLIC PANEL Routine 03/17/2024 9:03 PM IS SUPPORT ANALYST XR ABDOMEN AP 1 VIEW Timed 03/17/2024 5:30 AM IS SUPPORT ANALYST APTT Routine 03/17/2024 4:38 AM IS SUPPORT ANALYST PROTIME-INR Routine 03/17/2024 4:38 AM IS SUPPORT ANALYST LACTATE Routine 03/17/2024 4:38 AM IS SUPPORT ANALYST POTASSIUM, WHOLE BLOOD STAT 03/17/2024 12:34 AM IS SUPPORT ANALYST EGFR Routine 03/16/2024 10:49 PM IS SUPPORT ANALYST DIFFERENTIAL AUTO STAT 03/16/2024 10: 49 PM IS SUPPORT ANALYST APTT STAT 03/16/2024 10:49 PM IS SUPPORT ANALYST PROTIME-INR STAT 03/16/2024 10:49 PM IS SUPPORT ANALYST COMPREHENSIVE METABOLIC PANEL Routine 03/16/2024 10:49 PM IS SUPPORT ANALYST CBC WITH AUTO DIFFERENTIAL STAT 03/16/2024 10:[address] ABDOMEN PELVIS WO CONTRAST ED 03/16/2024 10:13 PM IS SUPPORT ANALYST SEPSIS LACTATE WITH REFLEX Timed 03/16/2024 7:46 PM IS SUPPORT ANALYST TRANSFUSE PLASMA Timed 03/16/2024 5:05 PM IS SUPPORT ANALYST XR ABDOMEN AP 1 VIEW ED Urgent/IP Urgent 03/16/2024 5:04 PM IS SUPPORT ANALYST CRITICAL RESULT CALLBACK CHEMISTRY Timed 03/16/2024 4:40 PM IS SUPPORT ANALYST SEPSIS LACTATE WITH REFLEX Timed 03/16/2024 4:40 PM IS SUPPORT ANALYST PREPARE PLASMA Timed 03/16/2024 4:27 PM IS SUPPORT ANALYST BLOOD CULTURE STAT 03/16/2024 3:28 PM IS SUPPORT ANALYST [place] CRITICAL CARE ILL/INJURED PATIENT INIT 30-74 MIN Routine 03/16/2024 3:[address] ABDOMEN PELVIS W CONTRAST ED 03/16/2024 3:[address] HEAD WO CONTRAST ED 03/16/2024 3 :10 PM IS SUPPORT ANALYST URINALYSIS AND REFLEX TO MICROSCOPIC AND CULTURE STAT 03/16/2024 3:05 PM IS SUPPORT ANALYST B CHECK SAMPLE STAT 03/16/2024 2:55 PM IS SUPPORT ANALYST BLOOD CULTURE STAT 03/16/2024 2:55 PM IS SUPPORT ANALYST CRITICAL RESULT CALLBACK CHEMISTRY STAT 03/16/2024 2:53 PM IS SUPPORT ANALYST SEPSIS LACTATE WITH REFLEX STAT 03/16/2024 2:53 PM IS SUPPORT ANALYST ECG 12-LEAD Routine 03/16/2024 2:47 PM IS SUPPORT ANALYST EGFR STAT 03/16/2024 2:43 PM IS SUPPORT ANALYST DIFFERENTIAL AUTO STAT 03/16/2024 2:4 3 PM IS SUPPORT ANALYST FIBRINOGEN STAT 03/16/2024 2:43 PM IS SUPPORT ANALYST TYPE AND SCREEN STAT 03/16/2024 2:43 PM IS SUPPORT ANALYST PROTIME-INR STAT 03/16/2024 2:43 PM IS SUPPORT ANALYST COMPREHENSIVE METABOLIC PANEL STAT 03/16/2024 2:43 PM IS SUPPORT ANALYST CBC WITH AUTO DIFFERENTIAL STAT 03/16/2024 2:43 PM IS SUPPORT ANALYST PAIN MGMT IMAGING TRIGGER POINT INJ 1-2 MUSCLE GROUPS Schedule Routine, Read Routine (OP Routine) 02/19/2024 12:16 PM IS SUPPORT ANALYST Chronic left hip pain DEVICE CHECK - REMOTE Routine 02/18/2024 2:12 AM IS SUPPORT ANALYST TROPONIN T HIGH-SENSITIVITY 2-HOUR Timed 02/11/2024 10:[address] ABDOMEN PELVIS W CONTRAST ED 02/11/2024 10:[address] HEAD WO CONTRAST ED 02/11/2024 1 0:16 PM IS SUPPORT ANALYST EGFR STAT 02/11/2024 7:51 PM IS SUPPORT ANALYST DIFFERENTIAL AUTO STAT 02/11/2024 7:5 1 PM IS SUPPORT ANALYST TROPONIN T HIGH-SENSITIVITY SERIES (BASELINE, 2HR, 4HR, 6HR) STAT 02/11/2024 7:51 PM IS SUPPORT ANALYST LIPASE STAT 02/11/2024 7:51 PM IS SUPPORT ANALYST COMPREHENSIVE METABOLIC PANEL STAT 02/11/2024 7:51 PM IS SUPPORT ANALYST CBC WITH AUTO DIFFERENTIAL STAT 02/11/2024 7:51 PM IS SUPPORT ANALYST POCT HCG, URINE Routine 02/11/2024 7:49 PM IS SUPPORT ANALYST URINALYSIS, MICROSCOPIC ONLY STAT 02/11/2024 7:49 PM IS SUPPORT ANALYST URINE CULTURE STAT 02/11/2024 7:49 PM IS SUPPORT ANALYST URINALYSIS AND REFLEX TO MICROSCOPIC AND CULTURE STAT 02/11/2024 7:49 PM IS SUPPORT ANALYST ECG 12-LEAD STAT 02/11/2024 7:26 PM IS SUPPORT ANALYST DEVICE CHECK - REMOTE Routine 01/17/2024 1:17 PM IS SUPPORT ANALYST DEVICE CHECK - IN OFFICE Routine 12/18/2023 10:29 AM CDT Cryptogenic stroke (HCC) from Last 3 Months Results * MRI Brain W WO Contrast (03/19/2024 12:21 PM IS SUPPORT ANALYST) Anatomical Region Laterality Modality Head and Neck N/A Magnetic Resonan ce 03/19/2024 1:42 PM IS SUPPORT ANALYST Impressions 03/19/2024 5:15 PM IS SUPPORT ANALYST 1. ??No acute intracranial findings. 2. ??Postsurgical [...] Becker M.D., Ph.D. Narrative 03/19/2024 5:15 PM IS SUPPORT ANALYST EXAMINATION: Magnetic resonance imaging (MRI) of the [...] Electronically signed by: Amy Becker M.D., Ph.D. Jackelyn Larsen NP IMG MRI PROCEDURES Final R esult * eGFR (03/19/2024 1:59 AM IS SUPPORT ANALYST) [facility] eGFR >90 >=60 mL/min/1. 73 m2 Comment: [...] last reviewed 2021. Blood 03/19/2024 1:59 AM IS SUPPORT ANALYST 03/19/2024 2:56 AM IS SUPPORT ANALYST Jovanni Campos MD LAB BLOOD ORDERABLES Tia pérez Result [facility] [place] [address] * (ABNORMAL) CBC without differential (03/19/2024 1:59 AM IS SUPPORT ANALYST) WBC 13.5(H) 3.8 - 9.9 K/cumm Hgb 10.4(L) 11.9 - 15.5 g/dL [facility] Hct 31.5(L) 35.6 - 45.5 % [facility] Plt 276 150 - 400 K/cumm [facility] MPV 11.3 9.1 - 12.3 fL [facility] RBC 3.42(L) 3.90 - 5.20 M/cumm [facility] MCV 92.1 81.3 - 96.4 fL [facility] MCH 30.4 27.1 - 33.3 pg [facility] MCHC 33.0 32.3 - 35.7 g/dL [facility] RDW CV 15.3(H) 11.1 - 14.9 % [facility] RDW SD 51.8(H) 35.7 - 48.1 fL [facility] NRBC abs 0.00 0.00 - 0.01 K/cumm [facility] Blood 03/19/2024 1:59 AM IS SUPPORT ANALYST 03/19/2024 2:56 AM IS SUPPORT ANALYST Jovanni Campos MD LAB BLOOD ORDERABLES Tia l Result Performing Organization Address City/[facility]/ZIP Co de Phone Number [facility] [place] [employer] [place] [address] * Phosphorus (03/19/2024 1:59 AM IS SUPPORT ANALYST) Pathologist [facility] Phosphorus, pl 2.7 2.3 - 4.5 mg/dL Blood 03/19/2024 1:59 AM IS SUPPORT ANALYST 03/19/2024 2:56 AM IS SUPPORT ANALYST Jovanni Campos MD LAB BLOOD ORDERABLES Tia l Result Performing Organization Address [facility] Co de Phone Number [facility] [place] [place] [place] [address] * Magnesium (03/19/2024 1:59 AM IS SUPPORT ANALYST) [facility] Magnesium 2.0 1.4 - 2.5 mg/dL Blood 03/19/2024 1:59 AM IS SUPPORT ANALYST 03/19/2024 2:56 AM IS SUPPORT ANALYST Jovanni Campos MD LAB BLOOD ORDERABLES Tia l Result Performing Organization Address City/[facility] Co de Phone Number [facility] [place] [place] [place] [address] * (ABNORMAL) Basic metabolic panel (03/19/2024 1:59 AM IS SUPPORT ANALYST) Sodium 145 135 - 145 mmol/L Potassium, pl 3.6 3.3 - 4.9 mmol/L [facility] Chloride 111(H) 97 - 110 mmol/L [facility] CO2 18(L) 22 - 32 mmol/L [facility] Anion gap 16(H) 2 - 15 mmol/L [facility] BUN 21 6 - 25 mg/dL [facility] Creatinine 0.52(L) 0.60 - 1.10 mg/dL [facility] Glucose 91 70 - 199 mg/dL [facility] Comment: Interpretive Data Fasting glucose >/= 126 [...] 2022. Calcium 7.8(L) 8.5 - 10.3 mg/dL [facility] Blood 03/19/2024 1:59 AM IS SUPPORT ANALYST 03/19/2024 2:56 AM IS SUPPORT ANALYST Jovanni Campos MD LAB BLOOD ORDERABLES Tia pérez Result [facility] [place] [address] * XR Abdomen Ap 1 Vw (03/18/2024 11:45 AM IS SUPPORT ANALYST) Anatomical Region Laterality Modality Body, Abdomen N/A Computed Radiogr aphy 03/18/2024 11:5 6 AM IS SUPPORT ANALYST Impressions 03/18/2024 12:02 PM IS SUPPORT ANALYST Gastric tube tip in the gastric body, side port around the gastroesophageal junction. ??No evidence of pneumoperitoneum. Cholecystectomy clips. Dictated by: Salinas Ni M.D. The radiology attending physician has personally reviewed this study, and had reviewed and/or edited this written report and agrees with it. Electronically signed by: Rukhsana Ramires M.D. Narrative 03/18/2024 12:02 PM IS SUPPORT ANALYST EXAMINATION: Abdomen, one view. HISTORY: Check tube [...] it. Electronically signed by: Rukhsana Ramires M.D. Bree Muñoz CARTOGRAPHY TEACHER IMG XR PROCEDURES Final Res ult * (ABNORMAL) Hepatic function panel (03/18/2024 10:08 AM IS SUPPORT ANALYST) [facility] Bilirubin, total 0.4 0.1 - 1.2 mg/dL Bilirubin, direct <0.2 0.1 - 0.3 mg/dL [facility] Protein, pl 5.5(L) 6.5 - 8.5 g/dL [facility] Albumin 2.3(L) 3.5 - 5.0 g/dL [facility] Alk phos 106 40 - 130 Units/L [facility] ALT 34 7 - 45 Units/L [facility] AST 41 10 - 45 Units/L [facility] Blood 03/18/2024 10:0 8 AM IS SUPPORT ANALYST 03/18/2024 10:26 AM IS SUPPORT ANALYST Bree Muñoz CARTOGRAPHY TEACHER LAB BLOOD ORDERABLES Final Result [facility] Department [place] [address] * eGFR (03/17/2024 9:03 PM IS SUPPORT ANALYST) [facility] eGFR >90 >=60 mL/min/1. 73 m2 Comment: [...] last reviewed 2021. Blood 03/17/2024 9:03 PM IS SUPPORT ANALYST 03/17/2024 9:27 PM IS SUPPORT ANALYST Jovanni Campos MD LAB BLOOD ORDERABLES Tia pérez Result Performing Organization Address City/State/[facility] Co de Phone Number [facility] [place] [address] * (ABNORMAL) Protime-INR (03/17/2024 9:03 PM IS SUPPORT ANALYST) PT 22.0(H) 9.7 - 13.0 sec INR 2.01(H) 0.90 - 1.20 [facility] Comment: Interpretive data Oral anticoagulant therapeutic ranges: Venous thromboembolism prophylaxis or treatment: 2.0-3.0 CARDIOLOGY Standard range: 2.0-3.0 High-intensity range: 2.5-3.5 Refer to indication-specific guidelines for appropriate target ranges for prosthetic heart valve replacement. Current interpretive data was last revised on 2019. Blood 03/17/2024 9:03 PM IS SUPPORT ANALYST 03/17/2024 9:31 PM IS SUPPORT ANALYST us Bree Muñoz NP LAB BLOOD ORDERABLES Final Result Performing Organization Address [facility]/ZIP Co de Phone Number [facility] Department [place] [employer] [place] [address] * (ABNORMAL) CBC without differential (03/17/2024 9:03 PM IS SUPPORT ANALYST) WBC 10.7(H) 3.8 - 9.9 K/cumm Hgb 11.3(L) 11.9 - 15.5 g/dL [facility] Hct 34.5(L) 35.6 - 45.5 % [facility] Plt 289 150 - 400 K/cumm [facility] MPV 11.0 9.1 - 12.3 fL [facility] RBC 3.72(L) 3.90 - 5.20 M/cumm [facility] MCV 92.7 81.3 - 96.4 fL [facility] MCH 30.4 27.1 - 33.3 pg [facility] MCHC 32.8 32.3 - 35.7 g/dL [facility] RDW CV 15.4(H) 11.1 - 14.9 % [facility] RDW SD 52.5(H) 35.7 - 48.1 fL [facility] NRBC abs 0.00 0.00 - 0.01 K/cumm [facility] Blood 03/17/2024 9:03 PM IS SUPPORT ANALYST 03/17/2024 9:27 PM IS SUPPORT ANALYST us Jovanni Campos MD LAB BLOOD ORDERABLES Tia l Result [facility] [place] [address] * Phosphorus (03/17/2024 9:03 PM IS SUPPORT ANALYST) [facility] Phosphorus, pl 3.3 2.3 - 4.5 mg/dL Blood 03/17/2024 9:03 PM IS SUPPORT ANALYST 03/17/2024 9:27 PM IS SUPPORT ANALYST Jovanni Campos MD LAB BLOOD ORDERABLES Tia l Result Performing Organization Address City/[facility] Co de Phone Number [facility] Department [place] [employer] [place] [address] * Magnesium (03/17/2024 9:03 PM IS SUPPORT ANALYST) [facility] Magnesium 2.3 1.4 - 2.5 mg/dL Blood 03/17/2024 9:03 PM IS SUPPORT ANALYST 03/17/2024 9:27 PM IS SUPPORT ANALYST Jovanni Campos MD LAB BLOOD ORDERABLES Tia l Result Performing Organization Address [facility] de Phone Number [facility] [place] [employer] [place] [address] * (ABNORMAL) Basic metabolic panel (03/17/2024 9:03 PM IS SUPPORT ANALYST) [facility] Sodium 143 135 - 145 mmol/L Comment:Repeated and Verifie d Potassium, pl 4.0 3.3 - 4.9 mmol/L [facility] Chloride 107 97 - 110 mmol/L [facility] CO2 22 22 - 32 mmol/L [facility] Anion gap 14 2 - 15 mmol/L [facility] BUN 26(H) 6 - 25 mg/dL [facility] Creatinine 0.82 0.60 - 1.10 mg/dL [facility] Glucose 104 70 - 199 mg/dL [facility] Comment: Interpretive Data Fasting glucose >/= 126 [...] 2022. Calcium 8.1(L) 8.5 - 10.3 mg/dL [facility] Blood 03/17/2024 9:03 PM IS SUPPORT ANALYST 03/17/2024 9:27 PM IS SUPPORT ANALYST us Jovanni Campos MD LAB BLOOD ORDERABLES Tia elisa Result [facility] [place] [address] * XR Abdomen Ap 1 Vw (03/17/2024 5:30 AM IS SUPPORT ANALYST) Anatomical Region Laterality Modality Body, Abdomen N/A Computed Radiogr aphy 03/17/2024 9:01 AM IS SUPPORT ANALYST Impressions 03/17/2024 9:04 AM IS SUPPORT ANALYST Gastric tube tip terminates in the gastric body, side port overlying the gastric fundus. ??Normal bowel gas pattern. Cholecystectomy clips overlie the right upper quadrant of the abdomen. ?? Loop recorder noted. Dictated by: Salinas Ni M.D. The radiology attending physician has personally reviewed this study, and had reviewed and/or edited this written report and agrees with it. Electronically signed by: Amanda Polanco M.D. Narrative 03/17/2024 9:04 AM IS SUPPORT ANALYST EXAMINATION: Abdomen, one view. HISTORY: Assess oral [...] R esult * Lactate (03/17/2024 4:38 AM IS SUPPORT ANALYST) Lactate 1.4 0.7 - 2.0 mmol/L Blood 03/17/2024 4:38 AM IS SUPPORT ANALYST 03/17/2024 4:53 AM IS SUPPORT ANALYST Jovanni Campos MD LAB BLOOD ORDERABLES Tia l Result Performing Organization Address [facility] Co de Phone Number [facility] [place] [employer] [place] [address] * (ABNORMAL) aPTT (03/17/2024 4:38 AM IS SUPPORT ANALYST) aPTT 22(L) 28 - 38 sec Comment: Repeated and verified - [id number] - 03/17/24, 5:50 AM Interpretive Data Heparin therapeutic range: 66.0 - 100.0 seconds. Range based on correlation with therapeutic heparin activity range of 0.3 - 0.7 Units/mL. Current interpretive data was last revised on 2022. Blood 03/17/2024 4:38 AM IS SUPPORT ANALYST 03/17/2024 5:02 AM IS SUPPORT ANALYST oJvanni Campos MD LAB BLOOD ORDERABLES Tia l Result Performing Organization Address City/[facility]/ZIP Co de Phone Number [facility] [place] [employer] [place] [address] * (ABNORMAL) Protime-INR (03/17/2024 4:38 AM IS SUPPORT ANALYST) PT 23.8(H) 9.7 - 13.0 sec Comment:Repeated and verifie d - [id number] - 03/17/24, 5:50 AM INR 2.17(H) 0.90 - 1.20 [facility] Comment: Repeated and verified - [id number] - 03/17/24, 5:50 AM Interpretive data Oral anticoagulant therapeutic ranges: Venous thromboembolism prophylaxis or treatment: 2.0-3.0 CARDIOLOGY Standard range: 2.0-3.0 High-intensity range: 2.5-3.5 Refer to indication-specific guidelines for appropriate target ranges for prosthetic heart valve replacement. Current interpretive data was last revised on 2019. Blood 03/17/2024 4:38 AM IS SUPPORT ANALYST 03/17/2024 5:02 AM IS SUPPORT ANALYST Jovanni Campos MD LAB BLOOD ORDERABLES Tia l Result Performing Organization Address [facility] Co de Phone Number [facility] [place] [employer] [place] [address] * Potassium, whole blood (03/17/2024 12:34 AM IS SUPPORT ANALYST) Pathologist [facility] Potassium, bld 4.7 3.3 - 4.9 mmol/L Blood 03/17/2024 12:3 4 AM IS SUPPORT ANALYST 03/17/2024 12:44 AM IS SUPPORT ANALYST Richi Romero MD LAB BLOOD ORDERABLES F inal Result Performing Organization Address [facility] de Phone Number [facility] [place] [employer] [place] [address] * (ABNORMAL) eGFR (03/16/2024 10:49 PM IS SUPPORT ANALYST) Pathologist [facility] eGFR 47(L) >=60 mL/min/1. 73 m2 Comment: [...] reviewed 2021. Blood 03/16/2024 10:4 9 PM IS SUPPORT ANALYST 03/16/2024 11:03 PM IS SUPPORT ANALYST us Jean Banuelos MD LAB BLOOD ORDERABLES Tia pérez Result [facility] [place] [address] * (ABNORMAL) Differential, auto (03/16/2024 10:49 PM IS SUPPORT ANALYST) Pathologist [facility] Neutrophil abs 6.2 1.5 - 6.5 K/cumm Imm gran abs 0.1 0.0 - 0.1 K/cumm [facility] Lymphocyte abs 0.6(L) 0.8 - 3.3 K/cumm [facility] Monocyte abs 0.2 0.2 - 0.8 K/cumm [facility] Eosinophil abs 0.1 0.0 - 0.5 K/cumm [facility] Basophil abs 0.1 0.0 - 0.1 K/cumm [facility] Neutrophil pct 86.0 % [facility] Comment: Confirmed by smear review Interpretive Data Percent cell count reference ranges are not reported, since discordance with absolute values may lead to misinterpretation of CBC data. Current Interpretive Data was last revised on 2017. Imm gran pct 1.7 % [facility] Comment: Interpretive Data Percent cell count reference ranges are not reported, since discordance with absolute values may lead to misinterpretation of CBC data. Current Interpretive Data was last revised on 2017. Lymphocyte pct 7.7 % [facility] Comment: Interpretive Data Percent cell count reference ranges are not reported, since discordance with absolute values may lead to misinterpretation of CBC data. Current Interpretive Data was last revised on 2017. Monocyte pct 2.8 % [facility] Comment: Interpretive Data Percent cell count reference ranges are not reported, since discordance with absolute values may lead to misinterpretation of CBC data. Current Interpretive Data was last revised on 2017. Eosinophil pct 0.8 % [facility] Comment: Interpretive Data Percent cell count reference ranges are not reported, since discordance with absolute values may lead to misinterpretation of CBC data. Current Interpretive Data was last revised on 2017. Basophil pct 1.0 % [facility] Comment: Interpretive Data Percent cell count reference ranges are not reported, since discordance with absolute values may lead to misinterpretation of CBC data. Current Interpretive Data was last revised on 2017. Blood 03/16/2024 10:4 9 PM IS SUPPORT ANALYST 03/16/2024 11:04 PM IS SUPPORT ANALYST us Jean Banuelos MD LAB BLOOD ORDERABLES Tia elisa Result [facility] [place] [address] * (ABNORMAL) CBC with auto differential (03/16/2024 10:49 PM IS SUPPORT ANALYST) WBC 7.2 3.8 - 9.9 K/cumm Hgb 12.7 11.9 - 15.5 g/dL [facility] Hct 38.6 35.6 - 45.5 % [facility] Plt 287 150 - 400 K/cumm [facility] MPV 11.0 9.1 - 12.3 fL [facility] RBC 4.08 3.90 - 5.20 M/cumm [facility] MCV 94.6 81.3 - 96.4 fL [facility] MCH 31.1 27.1 - 33.3 pg [facility] MCHC 32.9 32.3 - 35.7 g/dL [facility] RDW CV 15.3(H) 11.1 - 14.9 % [facility] RDW SD 53.4(H) 35.7 - 48.1 fL [facility] NRBC abs 0.00 0.00 - 0.01 K/cumm [facility] Blood 03/16/2024 10:4 9 PM IS SUPPORT ANALYST 03/16/2024 11:04 PM IS SUPPORT ANALYST Jean Banuelos MD LAB BLOOD ORDERABLES Tia l Result Performing Organization Address [facility] Co de Phone Number [facility] [place] [employer] [place] [address] * aPTT (03/16/2024 10:49 PM IS SUPPORT ANALYST) aPTT 30 28 - 38 sec Comment: Interpretive Data Heparin therapeutic range: 66.0 - 100.0 seconds. Range based on correlation with therapeutic heparin activity range of 0.3 - 0.7 Units/mL. Current interpretive data was last revised on 2022. Blood 03/16/2024 10:4 9 PM IS SUPPORT ANALYST 03/16/2024 11:11 PM IS SUPPORT ANALYST Jean Banuelos MD LAB BLOOD ORDERABLES Tia l Result Performing Organization Address City/[facility]/ZIP Co de Phone Number [facility] [place] [employer] [place] [address] * (ABNORMAL) Protime-INR (03/16/2024 10:49 PM IS SUPPORT ANALYST) PT 22.5(H) 9.7 - 13.0 sec INR 2.05(H) 0.90 - 1.20 [facility] Comment: Interpretive data Oral anticoagulant therapeutic ranges: Venous thromboembolism prophylaxis or treatment: 2.0-3.0 CARDIOLOGY Standard range: 2.0-3.0 High-intensity range: 2.5-3.5 Refer to indication-specific guidelines for appropriate target ranges for prosthetic heart valve replacement. Current interpretive data was last revised on 2019. Blood 03/16/2024 10:4 9 PM IS SUPPORT ANALYST 03/16/2024 11:11 PM IS SUPPORT ANALYST us Jean Banuelos MD LAB BLOOD ORDERABLES Tia l Result [facility] [place] [address] * (ABNORMAL) Comprehensive metabolic panel (03/16/2024 10:49 PM IS SUPPORT ANALYST) Sodium 132(L) 135 - 145 mmol/L Potassium, pl See Comment 3.3 - 4.9 mmol/L [facility] Comment:Credited; Hemolyzed Specimen Chloride 103 97 - 110 mmol/L [facility] CO2 22 22 - 32 mmol/L [facility] Comment:Hemolyzed; result ma y be falsely decreased Anion gap 7 2 - 15 mmol/L [facility] BUN 30(H) 6 - 25 mg/dL [facility] Creatinine 1.44(H) 0.60 - 1.10 mg/dL [facility] Glucose 108 70 - 199 mg/dL [facility] Comment: Interpretive Data Fasting glucose >/= 126 [...] 2022. Calcium 8.2(L) 8.5 - 10.3 mg/dL [facility] Bilirubin, total 0.8 0.1 - 1.2 mg/dL [facility] Protein, pl 6.5 6.5 - 8.5 g/dL [facility] Comment:Hemolyzed; result ma y be falsely elevated Albumin 2.6(L) 3.5 - 5.0 g/dL [facility] Alk phos See Comment 40 - 130 Units/L [facility] Comment:Credited; Hemolyzed Specimen ALT See Comment 7 - 45 Units/L [facility] Comment:Credited; Hemolyzed Specimen AST See Comment 10 - 45 Units/L [facility] Comment:Credited; Hemolyzed Specimen Blood 03/16/2024 10:4 9 PM IS SUPPORT ANALYST 03/16/2024 11:03 PM IS SUPPORT ANALYST us Jean Banuelos MD LAB BLOOD ORDERABLES Tia l Result [facility] [place] [address] * CT Abdomen Pelvis WO Contrast (03/16/2024 10:13 PM IS SUPPORT ANALYST) Anatomical Region Laterality Modality Body N/A Computed Tomogra phy 03/16/2024 11:1 3 PM IS SUPPORT ANALYST Impressions 03/17/2024 6:35 AM IS SUPPORT ANALYST 1. ??Persistently dilated loops of small bowel, [...] Junior Lee M.D. Narrative 03/17/2024 6:35 AM IS SUPPORT ANALYST EXAMINATION: CT ABDOMEN PELVIS WO CONTRAST TECHNIQUE: [...] it. Electronically signed by: Junior Lee M.D. Janene Rodriguez MD IMG CT PROCEDURES Final R esult * (ABNORMAL) Sepsis Lactate w/ Reflex (03/16/2024 7:46 PM IS SUPPORT ANALYST) Sepsis Lactate 3.4(H) 0.7 - 2.0 mmol/L Blood 03/16/2024 7:46 PM IS SUPPORT ANALYST 03/16/2024 7:52 PM IS SUPPORT ANALYST Jean Bowden MD LAB BLOOD ORDERABLES Final Result Performing Organization Address City/[facility] Co de Phone Number [facility] [place] [employer] [place] [address] * Transfuse plasma Standard plasma (03/16/2024 6:42 PM IS SUPPORT ANALYST) Blood Result [facility] Janene Rodriguez MD BLOOD TRANSFUSION ORDERAB LES Final Result Performing Organization Address [facility] Co de Phone Number [facility] [place] [place] [address] * XR Abdomen Ap 1 Vw (03/16/2024 5:04 PM IS SUPPORT ANALYST) Anatomical Region Laterality Modality Body, Abdomen N/A Computed Radiogr aphy 03/16/2024 5:08 PM IS SUPPORT ANALYST Impressions 03/16/2024 5:27 PM IS SUPPORT ANALYST A gastric tube tip and side port overlie the gastric body. ??Excreted contrast is seen within the renal collecting systems from same day CT abdomen pelvis. Dictated by: True Horne MD The radiology attending physician has personally reviewed this study, and had reviewed and/or edited this written report and agrees with it. Electronically signed by: Yared Jang M.D. Narrative 03/16/2024 5:27 PM IS SUPPORT ANALYST EXAMINATION: Abdomen, one view. HISTORY: Check tube [...] it. Electronically signed by: Yared Jang M.D. Janene Rodriguez MD IMG XR PROCEDURES Final R esult * (ABNORMAL) Sepsis Lactate w/ Reflex (03/16/2024 4:40 PM IS SUPPORT ANALYST) Sepsis Lactate 4.6(C) 0.7 - 2.0 mmol/L Blood 03/16/2024 4:40 PM IS SUPPORT ANALYST 03/16/2024 4:46 PM IS SUPPORT ANALYST Jean Bowden MD LAB BLOOD ORDERABLES Final Result [facility] Department [place] [address] * Critical Result Callback Chemistry (03/16/2024 4:40 PM IS SUPPORT ANALYST) Date Notified [id number] Time Notified 1657 MURALI CHISHOLM TestName Sepsis Lactate MURALI BAIRD Called/Read Back Dr. Janene CHISHOLM Credentials MD MURALI BAIRD Called By HSR MURALI BAIRD Blood 03/16/2024 4:40 PM IS SUPPORT ANALYST 03/16/2024 4:46 PM IS SUPPORT ANALYST us Jean Bowden MD LAB BLOOD ORDERABLES Final Result Performing Organization Address [facility] Co de Phone Number [facility] [place] [address] * Prepare plasma: 1 Units Standard plasma (03/16/2024 4:27 PM IS SUPPORT ANALYST) Product code [id number] Unit Number [id number] 1 [facility] Product Blood Type BPOS [facility] Dispense Status PRESUMED TRANSFUSED [facility] Blood (Blood, Venous) 03/16/2024 4:27 PM IS SUPPORT ANALYST 03/16/2024 4:28 PM IS SUPPORT ANALYST Narrative [facility] - 03/17/2024 6:00 AM IS SUPPORT ANALYST Other indication->Elevated coags with concern for surgical need Is this plasma order intended for a COVID-19 patient as convalescent plasma?->Standard plasma Special Requirements Needed?->No Date required:-[id number] FFP # of Units:-1-Units Reasons:-Other (Specify)} Janene Rodriguez MD BLOOD BANK PRODUCT ORDERA BLES Final Result Performing Organization Address [facility] de Phone Number [facility] [place] [address] * [place] CRITICAL CARE ILL/INJURED PATIENT INIT 30-74 MIN (03/16/2024 3:11 PM IS SUPPORT ANALYST) Narrative Bobby Cardona MD - 03/16/2024 3:11 PM IS SUPPORT ANALYST Bobby Cardona MD ? 03/17/2024 ??6:31 PM [...] Abdomen Pelvis W Contrast (03/16/2024 3:10 PM IS SUPPORT ANALYST) Anatomical Region Laterality Modality Body N/A Computed Tomogra phy 03/16/2024 3:57 PM IS SUPPORT ANALYST Impressions 03/16/2024 4:26 PM IS SUPPORT ANALYST 1. ??Dilated loops of proximal jejunum which [...] Yared Jang M.D. Narrative 03/16/2024 4:26 PM IS SUPPORT ANALYST EXAMINATION: CT ABDOMEN PELVIS W CONTRAST TECHNIQUE: [...] has slightly increased in size compared to 12-24. ??There are dilated loops of small bowel [...] it. Electronically signed by: Yared Jang M.D. Janene Rodriguez MD IMG CT PROCEDURES Final R esult * CT Head WO Contrast (03/16/2024 3:10 PM IS SUPPORT ANALYST) Anatomical Region Laterality Modality Head and Neck N/A Computed Tomogra phy 03/16/2024 3:29 PM IS SUPPORT ANALYST Impressions 03/16/2024 3:35 PM IS SUPPORT ANALYST 1. ??No new large acute territory infarct and no acute intracranial hemorrhage. 2. 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 Dictated by: Pal Medina MD The radiology attending physician has personally reviewed this study, and had reviewed and/or edited this written report and agrees with it. Electronically signed by: Karina Romano M.D. Narrative 03/16/2024 3:35 PM IS SUPPORT ANALYST EXAMINATION: CT head without contrast HISTORY: 43-year-old [...] of the bilateral parotid glands. Procedure Note Karina Austin MD - 03/16/2024 EXAMINATION: CT head without [...] by: Karina Romano M.D. Janene Rodriguez MD IM CT PROCEDURES Final R esult * (ABNORMAL) Urinalysis reflex to microscopic and culture Urine (03/16/2024 3:05 PM IS SUPPORT ANALYST) Color, ur Yellow Yellow Clarity, ur Cloudy(A) Clear [facility] Specific gravity, ur 1.020 1.003 - 1.030 MURALI [facility] pH, urine 6.0 [facility] Comment: Interpretive Data ? Urine pH is affected by diet, medications, systemic acid-base disturbances, and renal tubular function. ??pH may affect urinary stone formation. ??For example, urine pH below 6.0 may help reduce the tendency for calcium phosphate stones and pH greater than 6.0 may reduce the tendency for uric acid stone formation. Source: [facility] Current Interpretive Data was last revised on 2017 Protein, ur ql Trace Negative [facility] Glucose, ur ql Negative Negative [facility] Ketones, ur Negative Negative [facility] Bilirubin, ur Negative Negative [facility] Blood, ur Negative Negative [facility] Urobilinogen, ur <2.0 <2.0 mg/dL [facility] Nitrite, ur Negative Negative [facility] Leukocyte esterase, ur Negative Negative [facility] UA reflex comment Reflex conditions for microscopic UA and culture not met. [facility] Urine 03/16/2024 3:05 PM IS SUPPORT ANALYST 03/16/2024 3:27 PM IS SUPPORT ANALYST us Janene Rodriguez MD LAB MICROBIOLOGY - GENERA L ORDERABLES Final Result Performing Organization Address [facility] Co de Phone Number [facility] [place] [address] * Check Sample (03/16/2024 2:55 PM IS SUPPORT ANALYST) ABO Rh B Positive [facility] HCLL OTHER 03/16/2024 2:55 PM IS SUPPORT ANALYST 03/16/2024 3:04 PM IS SUPPORT ANALYST us Bobby Carodna MD LAB BLOOD ORDERABLES Tia l Result Performing Organization Address [facility] Co de Phone Number [facility] [place] [address] [facility] * (ABNORMAL) Sepsis Lactate w/ Reflex (03/16/2024 2:53 PM IS SUPPORT ANALYST) Sepsis Lactate 6.9(C) 0.7 - 2.0 mmol/L Comment:Verified Blood 03/16/2024 2:53 PM IS SUPPORT ANALYST 03/16/2024 3:03 PM IS SUPPORT ANALYST us Bobby Cardona MD LAB BLOOD ORDERABLES Tia l Result Performing Organization Address City/[facility]/ZIP Co de Phone Number [facility] Department [place] [address] * Critical Result Callback Chemistry (03/16/2024 2:53 PM IS SUPPORT ANALYST) Date Notified 20240316 Time Notified 1514 MURALI CHISHOLM TestName Sepsis Lactate MURALI BAIRD Called/Read Back Janene Rodriguez Credentials MD MURALI BAIRD Called By BUDDY BAIRD Blood 03/16/2024 2:53 PM IS SUPPORT ANALYST 03/16/2024 3:03 PM IS SUPPORT ANALYST us Jean Bowden MD LAB BLOOD ORDERABLES Final Result [facility] [place] [address] * (ABNORMAL) ECG 12-LEAD (03/16/2024 2:47 PM IS SUPPORT ANALYST) Narrative [facility] - 03/16/2024 2:47 PM IS SUPPORT ANALYST Antony Mcduffie MD ? 03/16/2024 ??2:48 PM [...] in the ED Antony Mcduffie MD 03/16/24 3115 us Bobby Cardona MD ECG ORDERABLES Final Res ult [facility] * (ABNORMAL) eGFR (03/16/2024 2:43 PM IS SUPPORT ANALYST) eGFR 26(L) >=60 mL/min/1. 73 m2 Comment: [...] last reviewed 2021. Blood 03/16/2024 2:43 PM IS SUPPORT ANALYST 03/16/2024 2:55 PM IS SUPPORT ANALYST us Aleah Rodriguez MD LAB BLOOD ORDERABLES Fin al Result [facility] [place] [address] * (ABNORMAL) Differential, auto (03/16/2024 2:43 PM IS SUPPORT ANALYST) Neutrophil abs 5.1 1.5 - 6.5 K/cumm Imm gran abs 0.1 0.0 - 0.1 K/cumm [facility] Lymphocyte abs 0.7(L) 0.8 - 3.3 K/cumm [facility] Monocyte abs 0.2 0.2 - 0.8 K/cumm [facility] Eosinophil abs 0.0 0.0 - 0.5 K/cumm [facility] Basophil abs 0.1 0.0 - 0.1 K/cumm [facility] Neutrophil pct 83.0 % [facility] Comment: Confirmed by smear review Interpretive Data Percent cell count reference ranges are not reported, since discordance with absolute values may lead to misinterpretation of CBC data. Current Interpretive Data was last revised on 2017. Imm gran pct 1.5 % [facility] Comment: Interpretive Data Percent cell count reference ranges are not reported, since discordance with absolute values may lead to misinterpretation of CBC data. Current Interpretive Data was last revised on 2017. Lymphocyte pct 10.6 % [facility] Comment: Interpretive Data Percent cell count reference ranges are not reported, since discordance with absolute values may lead to misinterpretation of CBC data. Current Interpretive Data was last revised on 2017. Monocyte pct 3.1 % [facility] Comment: Interpretive Data Percent cell count reference ranges are not reported, since discordance with absolute values may lead to misinterpretation of CBC data. Current Interpretive Data was last revised on 2017. Eosinophil pct 0.5 % [facility] Comment: Interpretive Data Percent cell count reference ranges are not reported, since discordance with absolute values may lead to misinterpretation of CBC data. Current Interpretive Data was last revised on 2017. Basophil pct 1.3 % [facility] Comment: Interpretive Data Percent cell count reference ranges are not reported, since discordance with absolute values may lead to misinterpretation of CBC data. Current Interpretive Data was last revised on 2017. Blood 03/16/2024 2:43 PM IS SUPPORT ANALYST 03/16/2024 2:55 PM IS SUPPORT ANALYST us Aleah Rodriguez MD LAB BLOOD ORDERABLES Fin al Result [facility] [place] [address] * (ABNORMAL) CBC with auto differential (03/16/2024 2:43 PM IS SUPPORT ANALYST) WBC 6.2 3.8 - 9.9 K/cumm Hgb 15.9(H) 11.9 - 15.5 g/dL [facility] Hct 48.0(H) 35.6 - 45.5 % [facility] Plt 331 150 - 400 K/cumm [facility] MPV 10.9 9.1 - 12.3 fL [facility] RBC 5.12 3.90 - 5.20 M/cumm [facility] MCV 93.8 81.3 - 96.4 fL [facility] MCH 31.1 27.1 - 33.3 pg [facility] MCHC 33.1 32.3 - 35.7 g/dL [facility] RDW CV 15.2(H) 11.1 - 14.9 % [facility] RDW SD 52.4(H) 35.7 - 48.1 fL [facility] NRBC abs 0.00 0.00 - 0.01 K/cumm [facility] Blood 03/16/2024 2:43 PM IS SUPPORT ANALYST 03/16/2024 2:55 PM IS SUPPORT ANALYST Aleah Rodriguez MD LAB BLOOD ORDERABLES Fin al Result Performing Organization Address [facility] de Phone Number [facility] [place] [address] * (ABNORMAL) Protime-INR (03/16/2024 2:43 PM IS SUPPORT ANALYST) PT 25.5(H) 9.7 - 13.0 sec INR 2.32(H) 0.90 - 1.20 [facility] Comment: Interpretive data Oral anticoagulant therapeutic ranges: Venous thromboembolism prophylaxis or treatment: 2.0-3.0 CARDIOLOGY Standard range: 2.0-3.0 High-intensity range: 2.5-3.5 Refer to indication-specific guidelines for appropriate target ranges for prosthetic heart valve replacement. Current interpretive data was last revised on 2019. Blood 03/16/2024 2:43 PM IS SUPPORT ANALYST 03/16/2024 2:55 PM IS SUPPORT ANALYST us Aleah Rodriguez MD LAB BLOOD ORDERABLES Fin al Result Performing Organization Address [facility] de Phone Number [facility] [place] [place] [address] * (ABNORMAL) Fibrinogen (03/16/2024 2:43 PM IS SUPPORT ANALYST) Pathologist [facility] Fibrinogen 856(H) 170 - 400 mg/dL Blood 03/16/2024 2:43 PM IS SUPPORT ANALYST 03/16/2024 2:55 PM IS SUPPORT ANALYST us Aleah Rodriguez MD LAB BLOOD ORDERABLES Fin al Result Performing Organization Address [facility] [place] [address] * Type and screen (03/16/2024 2:43 PM IS SUPPORT ANALYST) Bud, indirect Negative ABO Rh B Positive [facility] Blood 03/16/2024 2:43 PM IS SUPPORT ANALYST 03/16/2024 2:54 PM IS SUPPORT ANALYST Narrative [facility] - 03/16/2024 3:43 PM IS SUPPORT ANALYST Has the patient had Daratumumab or Isatuximab in the past 6 months?->Unknown Aleah Rodriguez MD LAB BLOOD BANK TEST ORDDanyelle BLACKMAN Final Result [facility] [place] [address] * (ABNORMAL) Comprehensive metabolic panel (03/16/2024 2:43 PM IS SUPPORT ANALYST) [facility] Sodium 139 135 - 145 mmol/L Potassium, pl 5.3(H) 3.3 - 4.9 mmol/L [facility] Chloride 101 97 - 110 mmol/L [facility] CO2 19(L) 22 - 32 mmol/L [facility] Anion gap 19(H) 2 - 15 mmol/L [facility] BUN 33(H) 6 - 25 mg/dL [facility] Creatinine 2.34(H) 0.60 - 1.10 mg/dL [facility] Glucose 131 70 - 199 mg/dL [facility] Comment: Interpretive Data Fasting glucose >/= 126 [...] 2022. Calcium 9.9 8.5 - 10.3 mg/dL [facility] Bilirubin, total 0.8 0.1 - 1.2 mg/dL [facility] Protein, pl 7.1 6.5 - 8.5 g/dL [facility] Albumin 3.0(L) 3.5 - 5.0 g/dL [facility] Alk phos 73 40 - 130 Units/L [facility] ALT 71(H) 7 - 45 Units/L [facility] AST 102(H) 10 - 45 Units/L [facility] Blood 03/16/2024 2:43 PM IS SUPPORT ANALYST 03/16/2024 2:55 PM IS SUPPORT ANALYST us Aleah Rodriguez MD LAB BLOOD ORDERABLES Fin al Result Performing Organization Address City/[facility]/ZIP Co de Phone Number [facility] [place] [address] * Imaging Trigger Point INJ 1-2 Muscle Groups () (02/19/2024 12:16 PM IS SUPPORT ANALYST) Narrative [facility] - 02/19/2024 12:16 PM IS SUPPORT ANALYST The images from this study are not interpreted by Radiology. ??Please refer to the physician's procedure / OR operative note. us Jacques Acevedo MD IMG PAIN MGMT PROCEDURES Final Result Performing Organization Address [facility] Co de Phone Number [facility] * DEVICE CHECK - REMOTE (02/18/2024 2:12 AM IS SUPPORT ANALYST) Anatomical Region Laterality Modality Other 02/18/2024 2:12 AM IS SUPPORT ANALYST Narrative 03/11/2024 4:31 PM IS SUPPORT ANALYST Interpretation Summary: Battery and Leads (BL) Normal [...] Troponin T high-sensitivity 2-hour (02/11/2024 10:28 PM IS SUPPORT ANALYST) Trop T hs <6 <=14 ng/L Comment: Interpretive Data For further hscTnT resources including the diagnostic algorithm and an aid in interpretation, copy and paste this link: https://nrl.testcatalog.org/show/hsTrop Current Interpretive Data last revised 2020. Testing performed by: [facility], [address] [place] [address]., [id number] Trop T hs delta 0 ng/L MURALI Comment:Testing performed by : [address] [address] Trop T hs interp Insignificant MURALI Comment:Testing performed by : [address] [address] Blood 02/11/2024 10:2 8 PM IS SUPPORT ANALYST 02/11/2024 10:31 PM IS SUPPORT ANALYST us Nicanor Swanson Jr., MD LAB BLOOD ORDERABLES Fi nal Result [facility] [address] [facility] Department [place] [address] * CT Abdomen Pelvis W Contrast (02/11/2024 10:16 PM IS SUPPORT ANALYST) Anatomical Region Laterality Modality Body N/A Computed Tomogra phy 02/11/2024 10:4 3 PM IS SUPPORT ANALYST Narrative 02/11/2024 11:00 PM IS SUPPORT ANALYST EXAM DESCRIPTION: ?? CT ABDOMEN PELVIS W CONTRAST REASON FOR STUDY: ?? LLQ abdominal pain ?? Abdominal pain since 02/02/2024 on Protonix for GERD. Pt reports pain is upper mid abd and lower left. Hx of CVA 10/2022 seen at [facility] for this, residual left-sided paralysis. Pt has [...] PM T: ??02/11/2024 11:00 PM Report ID: [id number] Reading Location: ??[id number] Procedure Note Liam Begum MD - 02/11/2024 EXAM DESCRIPTION: CT ABDOMEN PELVIS W CONTRAST REASON FOR STUDY: LLQ abdominal pain Abdominal pain since 02/02/2024 on Protonix for GERD. Pt reports pain isupper mid abd and lower left. Hx of CVA 10/2022 seen at [facility] for this, residual left-sided paralysis. Pt has [...] Liam Begum M.D. KH: JAIMIE Report ID: [id number] Reading Location: [id number] us Nicanor Swanson Jr., MD IMG CT PROCEDURES Final Result * CT Head WO Contrast (02/11/2024 10:16 PM IS SUPPORT ANALYST) Anatomical Region Laterality Modality Head and Neck N/A Computed Tomogra phy 02/11/2024 10:4 0 PM IS SUPPORT ANALYST Narrative 02/11/2024 10:43 PM IS SUPPORT ANALYST EXAM DESCRIPTION: CT HEAD WO CONTRAST REASON FOR STUDY: Mental status change, unknown cause ?? Abdominal pain since 02/02/2024 on Protonix for GERD. Pt reports pain is upper mid abd and lower left. Hx of CVA 10/2022 seen at [facility] for this, residual left-sided paralysis. Pt has [...] PM T: ??02/11/2024 10:43 PM Report ID: [id number] Reading Location: ??[id number] Procedure Note Liam Begum MD - 02/11/2024 EXAM DESCRIPTION: CT HEAD WO CONTRAST REASON FOR STUDY: Mental status change, unknown cause Abdominal pain since 02/02/2024 on Protonix for GERD. Pt reports pain isupper mid abd and lower left. Hx of CVA 10/2022 seen at [facility] for this, residual left-sided paralysis. Pt has [...] Liam Begum M.D. KH: JAIMIE Report ID: [id number] Reading Location: [place] [address] us Nicanor Swanson Jr., MD IMG CT PROCEDURES Final Result * Troponin T high-sensitivity series (baseline, 2hr, 4hr, 6hr) (02/11/2024 7:51 PM IS SUPPORT ANALYST) Pathologist [facility] Trop T hs <6 <=14 ng/L Comment: Interpretive Data For further hscTnT resources including the diagnostic algorithm and an aid in interpretation, copy and paste this link: https://nrl.testcatalog.org/show/hsTrop Current Interpretive Data last revised 2020. Testing performed by: [facility], [address] [place] [address]., [id number] Blood 02/11/2024 7:51 PM IS SUPPORT ANALYST 02/11/2024 7:54 PM IS SUPPORT ANALYST us Nicanor Swanson Jr., MD LAB BLOOD ORDERABLES Ed ited Result - Final [facility] [address] [facility] Department [place] [address] * eGFR (02/11/2024 7:51 PM IS SUPPORT ANALYST) Pathologist [facility] eGFR >90 >=60 mL/min/1. 73 m2 Comment: [...] was last reviewed 2021. Testing performed by: [address] [address] Blood 02/11/2024 7:51 PM IS SUPPORT ANALYST 02/11/2024 7:54 PM IS SUPPORT ANALYST us Nicanor Swanson Jr., MD LAB BLOOD ORDERABLES Fi nal Result [facility] [address] [facility] Department [place] [address] * Differential, auto (02/11/2024 7:51 PM IS SUPPORT ANALYST) Neutrophil abs 5.2 1.5 - 6.5 K/cumm Comment:Testing performed by : [address] [address] Imm gran abs 0.0 0.0 - 0.1 K/cumm MURALI Comment:Testing performed by : [address] [address] Lymphocyte abs 2.4 0.8 - 3.3 K/cumm MURALI Comment:Testing performed by : [address] [address] Monocyte abs 0.7 0.2 - 0.8 K/cumm MURALI Comment:Testing performed by : [address] [address] Eosinophil abs 0.1 0.0 - 0.5 K/cumm MURALI Comment:Testing performed by : [address] [address] Basophil abs 0.1 0.0 - 0.1 K/cumm MURALI Comment:Testing performed by : [address] [address] Neutrophil pct 61.4 % [facility] Comment: Interpretive Data Percent cell count reference ranges are not reported, since discordance with absolute values may lead to misinterpretation of CBC data. Current Interpretive Data was last revised on 2017. Testing performed by: [address] [address] Imm gran pct 0.4 % [facility] Comment: Interpretive Data Percent cell count reference ranges are not reported, since discordance with absolute values may lead to misinterpretation of CBC data. Current Interpretive Data was last revised on 2017. Testing performed by: [address] [address] Lymphocyte pct 28.5 % [facility] Comment: Interpretive Data Percent cell count reference ranges are not reported, since discordance with absolute values may lead to misinterpretation of CBC data. Current Interpretive Data was last revised on 2017. Testing performed by: [address] [address] Monocyte pct 7.8 % [facility] Comment: Interpretive Data Percent cell count reference ranges are not reported, since discordance with absolute values may lead to misinterpretation of CBC data. Current Interpretive Data was last revised on 2017. Testing performed by: [address] [address] Eosinophil pct 1.2 % [facility] Comment: Interpretive Data Percent cell count reference ranges are not reported, since discordance with absolute values may lead to misinterpretation of CBC data. Current Interpretive Data was last revised on 2017. Testing performed by: [address] [address] Basophil pct 0.7 % [facility] Comment: Interpretive Data Percent cell count reference ranges are not reported, since discordance with absolute values may lead to misinterpretation of CBC data. Current Interpretive Data was last revised on 2017. Testing performed by: [address] [place]., [address] Blood 02/11/2024 7:51 PM IS SUPPORT ANALYST 02/11/2024 7:54 PM IS SUPPORT ANALYST us Nicanor Swanson Jr., MD LAB BLOOD ORDERABLES Fi nal Result [facility] [address] [facility] Department [place] [address] * CBC with auto differential (02/11/2024 7:51 PM IS SUPPORT ANALYST) WBC 8.5 3.8 - 9.9 K/cumm Comment:Testing performed by : [address] [address] Hgb 14.1 11.9 - 15.5 g/dL MURALI Comment:Testing performed by : [address] [address] Hct 42.2 35.6 - 45.5 % MURALI Comment:Testing performed by : [address] [address] Plt 359 150 - 400 K/cumm MURALI Comment:Testing performed by : [address] [address] MPV 10.4 9.1 - 12.3 fL MURALI Comment:Testing performed by : [address] [address] RBC 4.59 3.90 - 5.20 M/cumm MURALI Comment:Testing performed by : [address] [address] MCV 91.9 81.3 - 96.4 fL MURALI Comment:Testing performed by : [address] [address] MCH 30.7 27.1 - 33.3 pg MURALI MORFIN Comment:Testing performed by : [address] [address] MCHC 33.4 32.3 - 35.7 g/dL MURALI Comment:Testing performed by : [address], [address] RDW CV 14.0 11.1 - 14.9 % MURALI Comment:Testing performed by : [address] [address] RDW SD 47.0 35.7 - 48.1 fL MURALI MORFIN Comment:Testing performed by : [facility], [address] [place] [address]., [address] NRBC abs 0.00 0.00 - 0.01 K/cumm MURALI Comment:Testing performed by : [address] [address] Blood (Blood, Venous) 02/11/2024 7:51 PM IS SUPPORT ANALYST 02/11/2024 7:54 PM IS SUPPORT ANALYST Nicanor Swanson Jr., MD LAB BLOOD ORDERABLES Fi nal Result Performing Organization Address [facility] Co de Phone Number [address] [place] [place] [address] * (ABNORMAL) Lipase (02/11/2024 7:51 PM IS SUPPORT ANALYST) Pathologist [facility] Lipase 106(H) 10 - 99 Units/L Comment:Testing performed by : [address], [address] Blood (Blood, Venous) 02/11/2024 7:51 PM IS SUPPORT ANALYST 02/11/2024 7:54 PM IS SUPPORT ANALYST Nicanor Swanson Jr., MD LAB BLOOD ORDERABLES Fi nal Result Performing Organization Address [facility] Co de Phone Number [address] [place] [address] * (ABNORMAL) Comprehensive metabolic panel (02/11/2024 7:51 PM IS SUPPORT ANALYST) Pathologist [facility] Sodium 137 135 - 145 mmol/L Comment:Testing performed by : [address] [address] Potassium, pl 3.3 3.3 - 4.9 mmol/L MURALI Comment:Testing performed by : [address], [place]., [address] Chloride 99 97 - 110 mmol/L MURALI Comment:Testing performed by : [address], [place]., [address] CO2 21(L) 22 - 32 mmol/L MURALI Comment:Testing performed by : [address], [place]., [address] Anion gap 17(H) 2 - 15 mmol/L MURALI Comment:Testing performed by : [address], [place]., [address] BUN 11 6 - 25 mg/dL MURALI Comment:Testing performed by : [address], [place]., [address] Creatinine 0.50(L) 0.60 - 1.10 mg/dL MURALI Comment:Testing performed by : [address], [place]., [address] Glucose 97 70 - 199 mg/dL MURALI [...] was last revised 2022. Testing performed by: [address] [address] Calcium 9.3 8.5 - 10.3 mg/dL MURALI Comment:Testing performed by : [address] [address] Bilirubin, total 0.5 0.1 - 1.2 mg/dL MURALI Comment:Testing performed by : [address], [place]., [address] Protein, pl 7.9 6.5 - 8.5 g/dL MURALI Comment:Testing performed by : [address], [place] [address] Albumin 4.2 3.5 - 5.0 g/dL MURALI Comment:Testing performed by : [address] [address] Alk phos 65 40 - 130 Units/L MURALI Comment:Testing performed by : [address] [address] ALT 74(H) 7 - 45 Units/L MURALI Comment:Testing performed by : [address] [address] AST 138(H) 10 - 45 Units/L MURALI Comment:Testing performed by : [address] [address] Blood 02/11/2024 7:51 PM IS SUPPORT ANALYST 02/11/2024 7:54 PM IS SUPPORT ANALYST us Nicanor Swanson Jr., MD LAB BLOOD ORDERABLES Fi nal Result [facility] [address] [facility] Department [place] [address] * (ABNORMAL) Urinalysis reflex to microscopic and culture Urine (02/11/2024 7:49 PM IS SUPPORT ANALYST) Color, ur Yellow Yellow Comment:Testing performed by : [address] [address] Clarity, ur Cloudy(A) Clear MURALI Comment:Testing performed by : [address] [address] Specific gravity, ur 1.032(H) 1.003 - 1.030 MURALI Comment:Testing performed by : [address] [address] pH, urine 6.0 MURALI Comment: Interpretive Data ? Urine pH is affected by diet, medications, systemic acid-base disturbances, and renal tubular function. ??pH may affect urinary stone formation. ??For example, urine pH below 6.0 may help reduce the tendency for calcium phosphate stones and pH greater than 6.0 may reduce the tendency for uric acid stone formation. Source: [employer] Current Interpretive Data was last revised on 2017 Testing performed by: [facility], [address] [place] [address]., [address] Protein, ur ql 1+(A) Negative MURALI MORFIN Comment:Testing performed by : [facility], [address] [place] [address], [place]., [address] Glucose, ur ql Negative Negative MURALI Comment:Testing performed by : [address], [place]., [address] Ketones, ur 4+(A) Negative MURALI Comment:Testing performed by : [address], [place]., [address] Bilirubin, ur 1+(A) Negative MURALI Comment:Testing performed by : [address], [place]., [address] Blood, ur Negative Negative MURALI Comment:Testing performed by : [address], [place]., [address] Urobilinogen, ur 2.0(A) <2.0 mg/dL MURALI Comment:Testing performed by : [address], [place]., [address] Nitrite, ur Negative Negative MURALI Comment:Testing performed by : [address] [address] Leukocyte esterase, ur Negative Negative MURALI Comment:Testing performed by : [address] [address] UA reflex comment Reflex to microscopic UA will be performed. MURALI Comment:Testing performed by : [address] [address] Urine 02/11/2024 7:49 PM IS SUPPORT ANALYST 02/11/2024 7:54 PM IS SUPPORT ANALYST us Nicanor Swanson Jr., MD LAB MICROBIOLOGY - GENE RAL ORDERABLES Final Result MURALI MORFIN [address] [facility] Department of Laboratories [place], [place] [id number] * (ABNORMAL) Urinalysis, microscopic only (02/11/2024 7:49 PM IS SUPPORT ANALYST) Pathologist [facility] WBC, ur 11-20(A) 0 - 5 /HPF Comment:Testing performed by : [facility], [address] [place] [address], [place]., [address] RBC, ur 6-10(A) 0 - 2 /HPF MURALI Comment:Testing performed by : [address], [place]., [address] Epithelial cells, squamous, ur >50(A) 0 - 5 /HPF MURALI Comment:Testing performed by : [facility], [address] [place] [address], [place]., [address] Bacteria, ur 3+(A) MURALI Comment:Testing performed by : [address], [place]., [address] Yeast, ur 1+(A) MURALI Comment:Testing performed by : [address], [place]., [address] Mucous, ur Present(A) MURALI Comment:Testing performed by : [address], [place]., [address] Culture Reflex Comment Reflex to urine culture will be performed. MURALI Comment:Testing performed by : [address], [place]., [address] Urine 02/11/2024 7:49 PM IS SUPPORT ANALYST 02/11/2024 7:54 PM IS SUPPORT ANALYST us Nicanor Swanson Jr., MD LAB URINE ORDERABLES Fi nal Result Performing Organization Address City/State/[facility] Co de Phone Number [facility] [address] [facility] Department [place] [address] * POCT hCG, urine (02/11/2024 7:49 PM IS SUPPORT ANALYST) Pathologist [facility] HCG, ur, POC Negative Negative Lot Number [id number] QC Backgroud Clear Acceptable QC Control Line Acceptable Urine 02/11/2024 7:49 PM IS SUPPORT ANALYST Nicanor Swanson Jr., MD POINT OF CARE TEST ORDDanyelle BLACKMAN Final Result * Urine culture Urine (02/11/2024 7:49 PM IS SUPPORT ANALYST) Report Final Report: Less than 100,000 colonies/mL (clinically insignificant growth based on current clinical standards) Comment:Testing performed by : [facility], [address] [place]., [address] Organism (CLINICALLY INSIGNIFICANT GROWTH [facility] Urine 02/11/2024 7:49 PM IS SUPPORT ANALYST 02/12/2024 1:39 AM IS SUPPORT ANALYST Narrative [facility] - 02/13/2024 2:21 PM IS SUPPORT ANALYST Urine culture reflexed based upon urinalysis results. Testing performed by [facility] Microbiology Laboratory ([phone]) us Nicanor Swanson Jr., MD LAB MICROBIOLOGY - GENE RAL ORDERABLES Final Result Performing Organization Address City/[facility]/ZIP Co de Phone Number [facility] [address] [facility] [place] [address] * ECG 12 lead (02/11/2024 7:26 PM IS SUPPORT ANALYST) Ventricular Rate EKG/Min 98 BPM [facility] Atrial Rate 98 BPM [facility] [place]-Interval (MSEC) 122 ms [facility] QRS-Interval (MSEC) 90 ms [facility] QT-Interval (MSEC) 384 ms [facility] QTc 490 ms [facility] P [place] 3 degrees [facility] R [place] 15 degrees [facility] T [place] -49 degrees [facility] Diagnosis Normal sinus rhythm RSR' or QR pattern in V1 suggests right ventricular conduction delay ST & T wave abnormality, consider inferior ischemia ST & T wave abnormality, consider anterolateral ischemia Prolonged QT Abnormal ECG No previous ECGs available Confirmed by SULTAN ROSE M.D. ([id number]) on 02/12/2024 9:22:55 AM [facility] 02/11/2024 7:26 PM IS SUPPORT ANALYST 02/12/2024 9:22 AM IS SUPPORT ANALYST us Nicanor Swanson Jr., MD ECG ORDERABLES Final R esult Performing Organization Address City/[facility]/ZIP Co de Phone Number [facility] * DEVICE CHECK - REMOTE (01/17/2024 1:17 PM IS SUPPORT ANALYST) Anatomical Region Laterality Modality Other 01/17/2024 1:17 PM IS SUPPORT ANALYST Narrative 02/03/2024 2:04 PM IS SUPPORT ANALYST Interpretation Summary: Battery and Leads (BL) Normal [...] Final Result from Last [address] [place] [address] [facility] [employer] Advance Directives For more information, please contact: [phone] * Full Code (Latest Code Status on File) Date Activated Date Inactivated Comments 03/17/2024 1:31 AM * Full Code Date Activated Date Inactivated Comments 10/15/2023 8:05 AM 10/21/2023 5:44 PM Care Teams Duco Polisher Relationship Specialty Start Date End Date Jaden Thakur DO [address] [place] [address] PCP - General Family Medicine 06/01/23
--- OUTSIDE RECORDS SUMMARY | 2024-03-19 20:52 | XMS_ITS | Encounter Summary ---
Author Organization [facility] Address [address] [place] [address] Phone Care Team Providers Care Set Up Mechanic Stamping Machines Name Role Phone Jaden Thakur Primary Care Provide r Encounter Details Date Type Department Care Team (Late st Contact Info) Description 02/18/2024 Orders Only 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 Author CCM Chronic Pain Care Plan Chronic Care Management On track(2023 11:07 AM ELECTRONIC HEAT SEAL OPERATOR) No Gianna Chairez, RN Note: Problem: Chronic [...] Diagnosis Comments DEVICE CHECK - REMOTE Routine 02/18/2024 2:12 AM ELECTRONIC HEAT SEAL OPERATOR documented in this encounter Results * DEVICE CHECK - REMOTE (02/18/2024 2:12 AM ELECTRONIC HEAT SEAL OPERATOR) Anatomical Region Laterality Modality Other 02/18/2024 2:12 AM ELECTRONIC HEAT SEAL OPERATOR Narrative 03/11/2024 4:31 PM ELECTRONIC HEAT SEAL OPERATOR Interpretation Summary: Battery and Leads (BL) Normal battery parameters Presenting Rhythm (MN) Normal Sinus Rhythm Arrhythmic events (AE) No new arrhythmic events in monitoring period Transmission Information (TI) Device Summary Report Implant indication: Cryptogenic Stroke Procedure Note Angelica Cochran MD - 03/11/2024 Interpretation Summary: Battery and Leads (BL) Normal battery parameters Presenting Rhythm (MN) Normal Sinus Rhythm Arrhythmic events (AE) No new arrhythmic events in monitoring period Transmission Information (TI) Device Summary Report Implant indication: Cryptogenic Stroke us Angelica Cochran MD [facility] PROCEDURES Final Result documented in this encounter Visit Diagnoses Not on filedocumented in this encounter Care Teams Set Up Mechanic Stamping Machines Relationship Specialty Start Date End Date Jaden Thakur DO [address] [place] [id number] PCP - General Family Medicine 06/01/23 documented as of this encounter
--- OUTSIDE RECORDS SUMMARY | 2024-03-19 20:52 | XMS_ITS | Encounter Summary ---
Author Organization [facility] Address [address] [place] [address] Phone Care Team Providers Care Engineering Job Titles Name Role Phone Jaden Thakur Primary Care Provide r Encounter Details Date Type Department Care Team (Late st Contact Info) Description 01/17/2024 Orders Only [facility] Cardiology [address] [facility] Medical Office Building [address] [place] [address] Angelica Cochran MD [facility] [address] [address] Social History Tobacco Use Types [...] on file 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 Gender Identity Not on file Sexual Orientation Not on file documented as of this encounter Plan of Treatment Not on file documented as of this encounter Procedures Procedure Name Priority Date/Time Associated Diagnosis Comments DEVICE CHECK - REMOTE Routine 01/17/2024 1:17 PM FILTER PLANT SUPERVISOR documented in this encounter Results * DEVICE CHECK - REMOTE (01/17/2024 1:17 PM FILTER PLANT SUPERVISOR) Anatomical Region Laterality Modality Other 01/17/2024 1:17 PM FILTER PLANT SUPERVISOR Narrative 02/03/2024 2:04 PM FILTER PLANT SUPERVISOR Interpretation Summary: Battery and Leads (BL) Normal battery parameters Presenting Rhythm ([place]) Normal Sinus Rhythm Arrhythmic events (AE) No new arrhythmic events in monitoring period Transmission Information (TI) Device Summary Report Implant indication: Cryptogenic Stroke Procedure Note Angelica Cochran MD - 02/03/2024 Interpretation Summary: Battery and Leads (BL) Normal battery parameters Presenting Rhythm (VA) Normal Sinus Rhythm Arrhythmic events (AE) No new arrhythmic events in monitoring period Transmission Information (TI) Device Summary Report Implant indication: Cryptogenic Stroke us Angelica Cochran MD [facility] PROCEDURES Final Result documented in this encounter Visit Diagnoses Not on filedocumented in this encounter Care Teams Engineering Job Titles Relationship Specialty Start Date End Date Jaden Thakur DO [address] [place] [address] PCP - General Family Medicine 06/01/23 documented as of this encounter
--- OUTSIDE RECORDS SUMMARY | 2024-03-19 20:52 | XMS_ITS | Encounter Summary ---
Author Organization [facility] Healthcare Address [address] [place] [address] [address] Man Name Role Phone Jaden Thakur Primary Care Provide r Reason for Visit * MRI/CAT/PET Scan (Routine) - Closed Specialty Diagnoses / Procedures Referred By Contac t Referred To Contact Procedures Neuro CT Outside Reference Sly Morrison MD [address] [facility] [address] [place] [address] Phone: tel: fax: Referral ID Status Reason Start Date Expiration Date Visits Re quested Visits Authorized [id number] Closed 12/13/2023 01/11/2025 1 1 Encounter Details Date Type Department Care Team (Latest Contact Info) Description 12/13/2023 1:57 PM CDT - 12/13/2023 11:59 PM CDT Hospital Encounter [facility] [address] [place] [id number] Discharge Disposition: Discharge to home or self [...] on file 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 ??There will be no report generated by a [facility] Radiologist. Narrative [facility] - 12/13/2023 1:57 PM CDT EXAMINATION: ??Images For Reference Purposes Only us Sly Morrison MD IMG CT PROCEDURES Final Re sult [facility] documented in this encounter Visit Diagnoses Not on filedocumented in this encounter Care Teams Drive Man Relationship Specialty Start Date End Date Jaden Thakur DO [address] [place] [id number] PCP - General Family Medicine 06/01/23 documented as of this encounter
--- OUTSIDE RECORDS SUMMARY | 2024-03-19 20:52 | XMS_ITS | Encounter Summary ---
Author Organization [facility] Address [address] [place] [address] Phone Care Team Providers Care Med Asst Name Role Phone Jaden Thakur DO Primary Care Provide r Reason for Visit * Reason Comments Cerebrovascular Accident Encounter Details Date Type Department Care Team (Late st Contact Info) Description 12/17/2023 3:00 PM CDT Office Visit [facility] [address] [place] [address] Steven Rivera, RAS [address] [facility] [address] [place] [address] Quadrantanopsia, left (Primary Dx) Social History Tobacco Use Types [...] on file Legal 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 No EOM deficits on exam and acuity is good. Pt has underwent extensive follow up in OT/PT and with an body designer at [facility] for prism therapy. No further intervention warranted at present. Counseled regarding fall risk. 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 No EOM deficits on exam and acuity is good. Pt has underwent extensive follow up in OT/PT and with an body designer at [facility] for prism therapy. No further intervention warranted at present. Counseled regarding fall risk. F/u documented in this encounter Plan of Treatment Not on file documented as of this encounter Visit Diagnoses Diagnosis Quadrantanopsia, left- Primary documented in this encounter Historical Medications * This list may reflect changes made after this encounter. ubrogepant (UBRELVY) 100 mg tablet Take 1 tablet (100 mg total) by mouth 2 (two) times a day as needed 11/21/2023 metaxalone (SKELAXIN) 800 mg tablet 11/14/2023 hydrOXYzine (ATARAX) 25 mg tablet Take 1 tablet (25 mg total) by mouth every 8 (eight) hours as needed 09/26/2023 betamethasone dipropionate (DEL-BETA) 0.05 % cream Apply topically 2 (two) times a day 11/13/2023 5 added in this encounter Eye Exam Visual Acuity (Snellen - Linear) Right eye Left eye Dist cc 20/20 20/20 Correction: Contacts Tonometry (Applanation, 3:23 PM) Right eye Left eye Pressure 15 15 Pupils Dark Shape React APD Right eye 3 Round very little None Left eye 5 Round Sluggish ?vs early rele ase Visual Powell Right eye Left eye Restrictions Total inferior temporal deficien cy Total inferior nasal deficiency Very difficult to assess Extraocular Movement Right eye Left eye Full Full Neuro/Psych Oriented x3: Yes Mood/Affect: Normal Dilation Both eyes: 1.0% Mydriacyl @ 3:23 PM External Exam Right eye Left eye External Normal Normal Slit Lamp Exam Right eye Left eye Lids/Lashes Normal Normal Conjunctiva/Sclera White and quiet White and rogelio et Cornea Clear Clear Anterior Chamber Deep and quiet Deep and quiet Iris Round and reactive Round and thalia ctive Lens Clear Clear Anterior Vitreous Normal Normal Fundus Exam Right eye Left eye Posterior Vitreous Normal Normal Disc Normal Normal C/D Ratio 0.55 0.55 Macula Normal Normal Vessels Normal Normal Periphery Normal Normal Wearing Rx Sphere Cylinder Bradford Right eye -10.25 +1.00 110 Left eye -11.00 +1.25 110 Current Contact Lens Rx Right eye Left eye Brand 1 day moist 1 day moist Base Curve 8.5 8.5 Sphere -8.50 -8.50 Care Teams Med Asst Relationship Specialty Start Date End Date Jaden Thakur DO [address] [place] [id number] PCP - General Family Medicine 06/01/23 documented as of this encounter
--- OUTSIDE RECORDS SUMMARY | 2024-03-19 20:53 | XMS_ITS | Encounter Summary ---
Author Organization [facility] Address [address] [place] [address] Phone Care Team Providers Care Glazier Stained Glass Name Role Phone Jaden Thakur DO Primary Care Provide r Reason for Visit * Reason Comments Follow-up Encounter Details Date Type Department Care Team (Late st Contact Info) Description 09/25/2023 11:30 AM CDT Office Visit [facility] Epilepsy [address] [place] [address] Gonzalez Jaffe MD [address] [place], [place] [id number] Seizure disorder, complex partial (HCC) (Primary Dx) Social History Tobacco Use Types Packs/Day Years Used Date Smoking Tobacco: Former Cigarettes Smokeless Tobacco: Never Personal Safety Answer Date Recorded Have you ever been in or are you currently in a harmful physical or emotional relationship or is someone making you feel afraid or unsafe? 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 Gender Identity Not on file Sexual Orientation Not on file documented as of this encounter Last Filed Vital Signs Vital Sign Reading Time Taken Comments Blood Pressure 105/73 09/25/2023 11:39 AM CDT Pulse 102 09/25/2023 11:39 AM CDT Temperature 37.1 ??C (98.8 ??F) 09/25/2023 11:39 AM C DT Respiratory Rate - - Oxygen Saturation 95% 09/25/2023 11:39 AM CDT Inhaled Oxygen Concentration - - Weight - - Height 162.6 cm (5' 4 ) 09/25/2023 11:39 AM CDT Body Mass Index - - documented in this encounter Patient Instructions * Patient Instructions* Gonzalez Jaffe MD - 09/25/2023 11:30 AM CDT - continue levetiracetam 1000mg twice daily - start topiramate 25mg twice daily for 1 week, then 50mg twice daily thereafter - stop divalproex after 1 week on goal dose of topiramate - EMU admission for event characterization - RTC 3 months Seizure precautions: -- It is [place] state law that a person cannot drive for 6 months following any spell with alteration in consciousness. -- Avoid activities in which you or someone else could be seriously hurt if you were to have an alteration in consciousness while doing the activity. For example, avoid cooking over an open flame, holding a baby while standing, climbing ladders, taking baths unattended (choose showers instead), or any other activity in which a sudden alteration in consciousness can lead to serious harm. -- It is important to not miss any doses of your medication. Make sure to go to bed and wake up on a regular schedule; poor sleep can increase the risk of having another seizure. Epilepsy is a brain disorder that causes recurrent, unprovoked seizures. It is the 4th most common neurological condition and affects more than 65 million people worldwide. According to the October 20, 2016, Morbidity and Mortality Weekly Report from the Centers for Disease Control and Prevention (CDC), at least 3.4 million people in the [place] live with seizures, including 470,000 children. More men than women have epilepsy overall by a small amount. Epilepsy and seizures can develop in any person at any age. Seizures and epilepsy are more common in young children and older people. About 1 in 100 people in the [place] has had a single unprovoked seizure or has been diagnosed with epilepsy. 1 in 26 people will develop epilepsy in their lifetime. People with certain conditions may be at greater risk. Each year, about 48 of every 100,000 people will develop epilepsy. However, seizures may occur more often in different age groups (very young and older people), in different races, and in different areas of the world. A diagnosis of epilepsy does not define the cause of the seizures or the outlook. There are many different types of seizures and types of epilepsy syndromes. New cases of epilepsy are most common among children, especially during the first year of life. The rate of new cases of epilepsy gradually goes down until about age 10 and then becomes stable. After age 55, the rate of new cases of epilepsy starts to increase, as people develop strokes, brain tumors, or Alzheimer's disease, which all can cause epilepsy. The impact of epilepsy on a person will vary depending on - the type, frequency and severity of seizures - the areas of the brain affected - the cause of the epilepsy - how a person responds to treatment - underlying brain abnormalities that are present Treatments available for epilepsy include antiseizure medication, surgery, prescribed dietary therapy, and neurostimulation devices. Topamax (Topiramate) What is this drug used for? It is used to treat seizures. It is used to prevent migraine headaches. It may be given to you for other reasons. Talk with the doctor. What do I need to tell my doctor BEFORE I take this drug? If you are allergic to this drug; any part of this drug; or any other drugs, foods, or substances. Tell your doctor about the allergy and what signs you had. This drug may interact with other drugs or health problems. Tell your doctor and pharmacist about all of your drugs (prescription or OTC, natural products, vitamins) and health problems. You must check to make sure that it is safe for you to take this drug with all of your drugs and health problems. Do not start, stop, or change the dose of any drug withoutchecking with your doctor. What are some things I need to know or do while I take this drug? Avoid driving and doing other tasks or actions that call for you to be alert until you see how thisdrug affects you. Sweating less and high body temperatures have happened with this drug. Sometimes, this has led to the need for treatment in a hospital. Be careful in hot weather and while being active. Call your doctor right away if you have a fever or you do not sweat during activities or in warm temperatures. Like other drugs that may be used for seizures, this drug may rarely raise the risk of suicidal thoughts or actions. The risk may be higher in people who have had suicidal thoughts or actions in the past. Call the doctor right away about any new or worse signs like depression; feeling nervous, restless, or grouchy; panic attacks; or other changes in mood or behavior. Call the doctor right away ifany suicidal thoughts or actions occur. This drug may cause an acid blood problem (metabolic acidosis). The chance may be higher in children and in people with kidney problems, breathing problems, or diarrhea. The chance may also be higherif you take certain other drugs, if you have surgery, or if you are on a ketogenic diet. Over time,metabolic acidosis can cause kidney stones, bone problems, or growth problems in children. This drug may raise the chance of bleeding. Sometimes, bleeding can be life- threatening. Talk with the doctor. This drug may cause very bad eye problems. If left untreated, this can lead to lasting eyesight loss. Call your doctor right away if you have new eye signs like blurred eyesight or other changes in eyesight, eye pain, or eye redness. A severe skin reaction (Rose-Froy syndrome/toxic epidermal necrolysis) may happen. It can cause severe health problems that may not go away, and sometimes . Get medical help right away if you have signs like red, swollen, blistered, or peeling skin (with or without fever); red or irritated eyes; or sores in your mouth, throat, nose, or eyes. If the patient is a child, use this drug with care. The risk of some side effects may be higher in children. This drug may affect growth in children and teens in some cases. They may need regular growth checks. Talk with the doctor. control pills and other hormone-based control may not work as well to prevent . Use some other kind of control also like a condom when taking this drug. If you are taking hormone-based control and you have any change in your bleeding pattern, talk with your doctor. This drug may cause harm to the unborn baby if you take it while you are . If you are or you get while taking this drug, call your doctor right away. If you are able to get but do not want to get , use control that you can trust to prevent while taking this drug. Tell your doctor if you are breast-feeding. You will need to talk about any risks to your baby. What are some side effects that I need to call my doctor about right away? WARNING/CAUTION: Even though it may be rare, some people may have very bad and sometimes deadly side effects when taking a drug. Tell your doctor or get medical help right away if you have any of thefollowing signs or symptoms that may be related to a very bad side effect: Signs of an allergic reaction, like rash; hives; itching; red, swollen, blistered, or peeling skin with or without fever; wheezing; tightness in the chest or throat; trouble breathing, swallowing, ortalking; unusual hoarseness; or swelling of the mouth, face, lips, tongue, or throat. Signs of too much acid in the blood (acidosis) like confusion; fast breathing; fast heartbeat; a heartbeat that does not feel normal; very bad stomach pain, upset stomach, or throwing up; feeling very sleepy; shortness of breath; or feeling very tired or weak. Signs of infection like fever, chills, very bad sore throat, ear or sinus pain, cough, more sputum or change in color of sputum, pain with passing urine, mouth sores, or wound that will not heal. Signs of high ammonia levels like a heartbeat that does not feel normal, breathing that is not normal, feeling confused, pale skin, slow heartbeat, seizures, sweating, throwing up, or twitching. Any unexplained bruising or bleeding. Feeling confused, not able to focus, or change in behavior. Memory problems or loss. Trouble speaking. Trouble sleeping. Change in balance. Very bad dizziness or passing out. Not able to eat. Back pain, belly pain, or blood in the urine. May be signs of a kidney stone. A burning, numbness, or tingling feeling that is not normal. Bone pain. Chest pain. Muscle pain or weakness. Shakiness. Trouble walking. Not able to control eye movements. Liver problems have rarely happened with this drug. Sometimes, this has been deadly. Call your doctor right away if you have signs of liver problems like dark urine, feeling tired, not hungry, upset stomach or stomach pain, light- colored stools, throwing up, or yellow skin or eyes. What are some other side effects of this drug? All drugs may cause side effects. However, many people have no side effects or only have minor sideeffects. Call your doctor or get medical help if any of these side effects or any other side effects bother you or do not go away: Constipation, diarrhea, stomach pain, upset stomach, throwing up, or feeling less hungry. Change in taste. Weight loss. Feeling nervous and excitable. Feeling dizzy, sleepy, tired, or weak. Headache. Flushing. Signs of a common cold. Joint pain. These are not all of the side effects that may occur. If you have questions about side effects, call your doctor. Call your doctor for medical advice about side effects. You may report side effects to your national health agency. How is this drug best taken? Use this drug as ordered by your doctor. Read all information given to you. Follow all instructionsclosely. All products: Take with or without food. Keep taking this drug as you have been told by your doctor or other health care provider, even if you feel well. Do not stop taking this drug all of a sudden without calling your doctor. You may have a greater risk of seizures. If you need to stop this drug, you will want to slowly stop it as ordered by your doctor. Drink lots of noncaffeine liquids unless told to drink less liquid by your doctor. Tell all of your health care providers that you take this drug. This includes your doctors, nurses,pharmacists, and dentists. Have blood work checked as you have been told by the doctor. Talk with the doctor. Talk with your doctor before you use marijuana, other forms of cannabis, or prescription or OTC drugs that may slow your actions. Taking this drug with valproic acid can cause low body temperature. This can also cause tiredness, confusion, or coma. Talk with the doctor. Tablets: Swallow whole. Do not chew, break, or crush. Avoid drinking alcohol while taking this drug. Regular-release sprinkle capsules and extended-release sprinkle capsules: You may swallow whole or sprinkle the contents on a spoonful of soft food like applesauce. Do not crush or chew before you swallow. If mixed, swallow the mixed drug right away. Do not store for use at a later time. Drink fluids right after eating the food and drug mixture to make sure the drug is swallowed. Avoid drinking alcohol while taking this drug. Extended-release capsules: Swallow whole. Do not chew, open, or crush. Do not sprinkle this drug on food. Avoid drinking alcohol while taking this drug. This is most important within 6 hours before or 6 hours after taking this drug. Oral solution: Measure liquid doses carefully. Use the measuring device that comes with this drug. If there is none, ask the pharmacist for a device to measure this drug. Do not use a household teaspoon or tablespoon to measure this drug. Doing so could lead to the dosebeing too high. Avoid drinking alcohol while taking this drug. What do I do if I miss a dose? Extended-release capsules: Call your doctor to find out what to do. Extended-release sprinkle capsules: Take a missed dose as soon as you think about it. If it is close to the time for your next dose, skip the missed dose and go back to your normal time. Do not take 2 doses at the same time or extra doses. If you miss 2 doses, call your doctor. All other products: Take a missed dose as soon as you think about it. If it is less than 6 hours until the next dose, skip the missed dose and go back to the normal time. Do not take 2 doses at the same time or extra doses. If you miss 2 doses, call your doctor. How do I store and/or throw out this drug? All products: Store at room temperature in a dry place. Do not store in a bathroom. Keep lid tightly closed. Keep all drugs in a safe place. Keep all drugs out of the reach of children and pets. Throw away unused or drugs. Do not flush down a toilet or pour down a drain unless you are told to do so. Check with your pharmacist if you have questions about the best way to throw out drugs. There may be drug take-back programs in your area. Oral solution: After opening, throw away any part not used after 60 days. Extended-release capsules: Protect from light. General drug facts If your symptoms or health problems do not get better or if they become worse, call your doctor. Do not share your drugs with others and do not take anyone else's drugs. Some drugs may have another patient information leaflet. If you have any questions about this drug,please talk with your doctor, nurse, pharmacist, or other health care provider. If you think there has been an overdose, call your poison control center or get medical care right away. Be ready to tell or show what was taken, how much, and when it happened. Balbir (Levetiracetam) How to take and store Levetiracetam? How to take: Take levetiracetam exactly as your health care provider prescribes it. Do not change your dose without talking to your provider first. Stopping a seizure medicine suddenly can cause seizures that will not stop (status epilepticus). Check the number of tablets and the strength of pills you get from the pharmacy. If your provider changes the dose, the strength of pills may be different. Levetiracetam is usually taken twice a day, about 12 hours apart. Swallow the tablets whole. They may have a bitter taste when the pill is crushed. People who have trouble swallowing the pills whole can break the tablets in half, mix the tablet with food, or use the liquid form. It can be taken with or without food, but it's best to take it the same way every day. For the liquid form, always check the bottle for the amount to take and the strength. Levetiracetamliquid comes as 100 mg in every ml. Shake the bottle well before measuring a dose. Always use an accurate measuring spoon or syringe to make sure the amount is correct. Do not use a regular teaspoon. Take only the amount that your provider tells you to take. If you take an extra dose, call your provider for advice. If you take a larger number of pills or overdose, call the poison control center ([phone]) or call your hospital emergency room. How to store: Store at room temperature (below 86oF, 30oC). Keep away from light and moisture. Keep all medicines out of reach of children. What if I forget? Taking the right amount of seizure medicine on time every day is the most important way to control seizures. Try these steps to help you remember when to take seizure medicine. If you miss a dose, take it as soon as you remember it. If it is almost time for the next dose, skip the missed dose and go back to your usual schedule. Avoid taking 2 doses at the same time or taking extra doses. If you are not sure about what to do, call your health care provider's office for advice. Do your best to follow their directions. To avoid missed doses, use a pillbox or set an alarm on your watch or phone. Send reminders to yourself with an online seizure diary or text message system like [employer]. Ask your pharmacist to prefill the medicine in blisterpaks. Write down any missed doses in your seizure calendar. Share this with your health care provider at each visit. How does Levetiracetam affect the brain? Brain cells normally talk to each other using electrical signals and chemicals. Seizures can happenwhen the brain cells are not working or firing normally or working faster than normal. Most seizuremedicines slow down these electrical discharges to stop seizures. Levetiracetam works differently from most seizure medicines. It joins with a protein (called SV2A) that is involved with the release of certain chemicals called neurotransmitters in the brain. The exact way that these actions lead to decreased seizures is not fully known. How does the body digest Levetiracetam? How the body absorbs, digests, and breaks down or gets rid of a medicine is called metabolism. The way the body metabolizes a medicine affects how often it must be taken. This process can also affectif it will interact with other medicines. If a person has liver or kidney problems, a person's metabolism may be affected. Some important points about levetiracetam: The tablets and liquid take the same amount of time to be absorbed. Taking levetiracetam with food may slow down the time it takes for the body to absorb the drug by about 1 hour. The highest blood levels are reached in 1 to 2 hours after taking a dose of this medicine. The liver does not affect how levetiracetam works in the body. The body gets rid of the drug through the kidneys. This may affect how much levetiracetam a person with kidney problems takes and how often they take it. How well does the Levetiracetam work? Not all seizure medicines work for everyone. Your health care provider may try a series of seizure medicines or combination of medicines to find one that works best for you. In most studies of levetiracetam when given with other seizure medicines, 20 to 40% of people had at least a 50% decrease in their seizures. (This means that the number of seizures each month was at least cut in half.) Most people did not have many problems with side effects in these studies. At least one study found that levetiracetam may be helpful when used alone in people with focal (partial) seizures. Since this medicine does not interact with other seizure medicines, it is easier to use with other seizure medicines. What are the most common side effects of Levetiracetam? In the early tests of levetiracetam, people who took this medicine were only slightly more likely to stop the drug because of side effects than people taking a placebo (inactive drug). Some side effects may include: Dizziness Headache Irritability Loss of strength and energy Mood and behavior changes Sleepiness Some tips: Some side effects are more likely to happen in the first month of taking the drug. Some may go awayon their own. If you notice any of these problems, call your health care provider. Changing the amount or way thedrug is taken may help. Do not stop taking levetiracetam or the way it is taken without your doctor's advice. Some people report that levetiracetam has had positive effects - such as feeling more alert, thinking clearer, and better concentration. It is hard to know whether these effects are from the medicineor from having less seizures. Avoid dangerous activities when first starting this medicine or if taking a larger dose, untill yousee If you have any side effects. Long-term side effects of levetiracetam have not been reported. What are the most serious side effects of Levetiracetam? Very few people have serious side effects from levetiracetam. It is important to be aware of possible reactions and what to do if they happen. Read the package insert for more information. Call your provider's office right away if any of these problems occur. Allergic reactions: Allergic reactions happen rarely, but can cause symptoms such as low blood pressure, hives, rash, breathing difficulties, and swelling. It can happen after the first dose or any time when taking levetiracetam. Since this can be life-threatening, if these symptoms occur, get immediate medical help. Coordination problems: A small number of people may have unsteady walking or coordination problems when taking levetiracetam. This medicine may also worsen coordination or walking problems that were present before starting the drug. Adjusting the dose of levetiracetam may help. Changes in behavior, mood, or thoughts: Levetiracetam may cause changes in behavior, mood, or thoughts. This has been seen more often in young children than in adults taking this medicine. The dose of levetiracetam may need to be lowered or stopped. Examples of changes seen include: Anger, aggression Decreased ability to cope with daily life Depression Excessive emotional reactions or frequent mood swings or changes Severe anxiety, agitation, or confused thoughts Thoughts of suicide Severe skin reactions: Rare but serious skin reactions, such as Rose-Froy Syndrome (SJS) and toxic epidermal necrolysis (TEN), have been reported with levetiracetam. These conditions may start with a fever and flu-like symptoms. Then a rash develops. Ulcers or lesions of the mucous membranes may be seen and develop into painful blisters. Report any fever or rash to a health care provider as this can be a life- threatening condition. These types of skin reactions happen most commonly in the second or third week after starting the medicine, though it can happen at other times too. Suicidal thoughts and behavior: In 2008, the Food and Drug Administration (FDA) reviewed data from drug studies that showed a possible relationship between many seizure medicines and suicidal thoughts and behavior. Together, these thoughts and behavior are called suicidality. According to the FDA???s Alert, among the patients with epilepsy in these drug studies, more had symptoms of suicidality than people taking a placebo or inactive substance - 3.5 of 1,000 people taking a seizure medicine had suicidality compared to 1 of 1,000 people taking a placebo. Taking seizure medicines may increase the risk of having suicidal thoughts or actions. Do not make any changes to the medicines without first talking to the prescribing health care provider. Pay close attention to any day-to-day changes in mood, behavior and actions. These changes can happen very quickly so it is important to be mindful of any sudden differences. Be aware of common warning signs that might be a signal for risk of suicide. Some of these are: Talking or thinking about wanting to hurt yourself or end your life Withdrawing from friends and family Becoming depressed or having your depression get worse Becoming preoccupied with and dying Giving away prized possessions Contact your health care provider before stopping any seizure meicine. This could possibly lead to worsening of seizure and mood. Can Levetiracetam be taken with other medicines? Sometimes one kind of medicine changes the way another kind of medicine works in the body. Taking levetiracetam does not seem to cause this kind of problem. Levetiracetam does not affect the level of other medicines in the body, and other medicines do not affect levetiracetam. If a woman takes Levetiracetam during will it hurt the baby? Effect of seizure medicines during : In the [place], the FDA assigns each medicationto a Category according to whether it has been proven to be harmful in . Levetiracetam is listed in Category C. This means that caution is advised, but the benefits of the medicine may outweigh the potential risks. Studies in animals show possible harmful effects of levetiracetam to the developing fetus. Yet thisneeds to be studied in humans as more women use the drug. Talk to your health care providers if you are or plan to become . The risk of defects is generally higher in children of women who: Take more than one seizure medicine at the same time Have a family history of defects All women who are capable of becoming should take at least 0.4 mg (400 mcg) each day of the vitamin called folic acid (also called folate). This vitamin is thought to help prevent defects affecting the brain and spinal cord, called neural tube defects. The most common of these is known as spina bifida. Women at high risk of having a child with a defect (such as those with a defect in a previous or taking certain seizure medicines) may be asked to take 4 mg (4000 mcg) daily before and during . Talk to your health care provider about using folic acid and how much to take. Start taking this vitamin before you become . If you were taking levetiracetam while , consider enrolling in the [place] Antiepileptic Drug (NAAED) Registry by calling (www.aedpregnancyregistry.org). Seizures during : Some women may have more seizures during , because of hormone changes and how seizure medicine is handled by your body. Talk to your health care provider before about seizures and if medicine changes may be needed. Know when to check blood levels of medicine during and after . The dose of seizure medicine may need to be adjusted during and after . : Low levels of levetiracetam have been found in breast milk when normal doses of the drug are given. This would not be expected to cause problems in a baby, especially those over 2 months old. Levetiracetam could affect a woman's supply of breast milk. Women who wish to breastfeed should talk to their doctor about the best medicine to use during and when . If you choose to breastfeed, check the baby for drowsiness and keep track of their weight gain and development, especially if you are taking more than one seizure medicine. Talk to your health care team about any concerns that arise and if you have any problems with . Contraception: Levetiracetam does not interfere with hormonal control. What are the effects of Levetiracetam on Seniors Levetiracetam is commonly prescribed for people over 65. When people are older than 65 or 70, theirkidneys usually don't work as well as before. The kidneys are responsible for removing levetiracetam from the body, so it stays in the body longer if the kidneys aren't working normally. A very low dose of levetiracetam may need to be used when starting it in older adults. The dose of medicine would then be increased more slowly. Sometimes a person may be asked to take levetiracetam just once a day. Seniors may be more sensitive to the side effects of this medicine. Common side effects like sleepiness, dizziness, or loss of strength, may be worse when taking levetiracetam. Older adults may be at greater risk of injury from falls or other accidents resulting from these problems. Levetiracetam does not interact with other medicines commonly used by older adults. The Epilepsy Foundation of [place] and [place] is an organization aimed at helping you understand more about seizures and epilepsy. They???ve created epilepsy resources to provide you with the information you need. You may visit their website at https://efmk.org If you want to learn more or if you have any additional questions, please contact them at . documented in this encounter Ordered Prescriptions Prescription Sig Dispense Quantity Refills Last Filled Start Date End Date levETIRAcetam (KEPPRA) 1,000 mg tablet Take 1 tablet (1,000 mg total) by mouth 2 (two) times a day 60 tablet 11 09/25/2023 4 topiramate (TOPAMAX) 25 mg tablet Take 1 tablet (25 mg total) by mouth 2 (two) times a day for 7 days, THEN 2 tablets (50 mg total) 2 (two) times a day. 120 tablet 11 09/25/2023 4 documented in this encounter Progress Notes * Gonzalez Jaffe MD - 09/25/2023 11:30 AM CDT Images from the original note were not included. Name: Consuelo Jimenez Date of : 1980 PCP: Jaden Thakur, Date: 09/25/2023 Provider: Gonzalez Jaffe MD INTERVAL HISTORY: Breakthrough event on 08/29/23 for which she contacted the office. She was sitting in the chair and talking on phone when she felt weakness in her hand and dropped the phone. She later felt her body stiffened followed by violent shaking of the extremities. This was an unwitnessed event but she remembers these details and denied losing awareness. She denied any bowel/bladder incontinence or oral trauma. Event lasted several minutes. Levetiracetam was increased to 1000mg twice daily after this event. Patient messaged on 09/14 that she experienced 6 headaches over the prior 6 days. While headaches are typically right-sided but this new type of headache was left-sided on forehead and behind the eye, these were similar but with stronger intensity and longer duration to recovery. Thhey are occurring ever daily basis. She reported periods of dizziness and fatigue with headaches which was a new symptom. Her has also noticed tremors. She was also using Nurtec ODT 75mg for rescue, prescribed by her PCP. She is taking verapamil 120mg three times daily, metoprolol 25mg twice daily, and valproic acid 250mg twice daily as well. HISTORY OF PRESENT ILLNESS Consuelo Jimenez is a 42 y.o. right-handed female who was referred by Physician Radha for evaluation of single seizure. Patient is accompanied by Saol, who helps to provide the history. Ms. 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 She denies having seizure during the course of hospitalization. She was started on prophylactic ASM (keppra 500 mg bid) in January [facility] and was recommended to continue for 3 - 6 months. She has been compliant with keppra since then but missed a few days due to issues with refill, and denied any seizures during this period whenshe missed. As she was seizure free for few months, starting May 27, was asked to taper Keppra to 500 mg once daily for 3 weeks followed by 250 mg once daily for 3 weeks and then stop. On may 31 she had an event when she was lying on bed. Consuelo remembers last thing as her going to shower and next thing waking up in ER. As per Salo, he heard a slow rhythmic stomping sound while in the bathroom, and called his name couple times with no response. By the time he came to checkon her, she was found to have left upward forced gaze preference, not responding, unable to track, flaccid right arm and leg hanging off the bed. She had bubbling and drooling from her mouth withlabored breathing and her lips turned blue . Upon EMS arrival, she was able to track but confused.Her blood glucose was reportedly normal. Denied urinary incontinence, oral trauma. She denies any triggers including excessive stress, sleep deprivation, signs of infection (URI/UTI/GI illness). She was restarted on Keppra 500 mg bid upon discharge from ER. She reported her headaches have recurred few weeks prior to this event. She was on Elavil in the past but without much benefit. Event #1 Type: Unclassified (FBTCS vs. NEE) Subjective: amnestic to the event Objective: heard rhythmic stomping sound from shower (unwitnessed), witnessed left upward gaze preference, right arm/leg off the bed flaccid , lips cyanosis, drooling and unresponsive Post-ictal: Confused Duration: 2-3 minutes Tongue Biting: No Urinary Incontinence:No Frequency: Single event Last event: 06/01/2023 Event #2 Type: NEE vs. 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 Currently none. PAST MEDICAL HISTORY Medical Conditions Diagnosis Acquired skull defect 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) Anemia Cerebrovascular accident (HCC) Elevated fasting glucose Gaze palsy GERD (gastroesophageal reflux disease) Hemianopsia Hepatocellular injury Hypertension Left-sided sensory deficit present Seasonal allergies Trochanteric bursitis of left hip Generalized seizure (HCC) Cryptogenic stroke (HCC) PAST SURGICAL HISTORY Past Surgical History: Procedure Laterality Date SECTION x2 SOCIAL HISTORY Social History Tobacco Use Smoking status: Former Types: Cigarettes Smokeless tobacco: Never Substance and Sexual Activity Drug use: None Sexual activity: None Alcohol Use: Not At Risk (04/10/2019) [facility] Frequency of Alcohol Consumption: Monthly or less Average Number of Drinks: 1 or 2 Frequency of Binge Drinking: Never FAMILY HISTORY Family History Problem Relation Age of Onset Osteoporosis Other Blood Clot Other MEDICATIONS Current Outpatient Medications Medication Instructions aspirin 81 mg, oral, Daily baclofen (LIORESAL) 5 mg, oral, Nightly busPIRone (BUSPAR) 5 mg, oral, 2 times daily cetirizine 10 mg, oral, Nightly cholecalciferol (CHOLECALCIFEROL) 2,000 Units, Daily cyclobenzaprine (FLEXERIL) 5 mg, oral, [address] (DEPAKOTE) 250 mg EC tablet Take 1 tablet (250 mg total) by mouth every morning AND 2tablets (500 mg total) nightly. DULoxetine DR (CYMBALTA) 60 mg, oral, Daily HYDROcodone-acetaminophen (NORCO) 10-325 mg per tablet 1 tablet, oral, Every 6 hours PRN hydrOXYzine (VISTARIL) 25 mg, oral, 3 times daily PRN levETIRAcetam (KEPPRA) 1,000 mg, oral, 2 times daily metoprolol tartrate (LOPRESSOR) 25 mg, oral, 2 times daily nitrofurantoin monohydrate (Macrobid) 100 mg capsule 100 mg, oral, [address] (PROTONIX) 40 mg, oral, Daily polyethylene glycol (MIRALAX) 17 g, 2 times daily PRN topiramate (TOPAMAX) 25 mg tablet Take 1 tablet (25 mg total) by mouth 2 (two) times a day for 7 days, THEN 2 tablets (50 mg total) 2 (two) times a day. verapamil SR (CALAN SR) 120 mg, oral, Nightly ALLERGIES Consuelo is allergic to latex and vancomycin. OBJECTIVE Vital Signs Vitals BP 105/73 (BP Location: Right arm, Patient Position: Sitting) Pulse 102 Temp 37.1 ??C (98.8 ??F) Ht 162.6 cm (5' 4 ) SpO2 95% BMI 39.48 kg/m?? Physical Exam General: The patient appeared well developed, well nourished and well groomed. HEENT: Normocephalic and atraumatic. Oropharynx was clear. Conjunctivae were clear. Cardiovascular: Regular rate and rhythm. Pulmonary: Symmetric rise and fall of chest wall. No accessory muscle usage observed. Extremities: No edema. Normal. Skin: Normal Neurological Exam: Mental Status: The patient was alert and oriented to self, person, and place. Able to spell world backwards. Followed simple midline and appendicular commands. Followed 2-step commands. Naming and repetition intact. Cranial Nerves: Pupils equal, regular, and reactive to light and accommodation. Extraocular movements intact. Left inferior quadrantanopsia. Symmetric to light touch in V1-V3 distributions bilaterally. Left lower facial droop. Hearing symmetric to voice bilaterally. Palate elevates symmetrically. Tongue protrudes midline. Motor: Bulk was normal. Tone was increased in the left lower extremity and decreased in left upper extremity. Fasciculations were absent. No tremor was noted. Shoulder Abduction Elbow flexion Elbow extension Wrist Extension Finger abduction Thumb Opposition Hip Flexion Hip Extension Knee Flexion Knee Extension Ankle Dorsiflexion Ankle Plantarflexion Left 0 0 0 0 0 0 3- 3 3- 1 1 Right 5 5 5 5 5 5 5 5 5 5 5 Sensation: The patient had normal sensation to temperature and light touch. Coordination: Finger to nose testing and rapid alternating movements were normal on the right. Gait: deferred for saefty Reflexes: Biceps Brachioradialis Triceps Patellar Achilles Left 3+ 3+ 3+ 3+ REYNOLD due to orthotic Right 2+ 2+ 2+ 1+ 1+ Walters sign positive in left hand Labs: CBC (12/14/2022) Component Ref Range & Units 6 mo ago WBC X(10)9/L Blood 4.4 - 10.7 x10E9/L 11.3 High Rbc X(10)12/L Blood 3.80 - 5.20 x10E12/L 4.23 HGB gm/dL Blood 12.0 - 15.6 gm/dL 12.5 HCT % Blood 35.9 - 45.5 % 39.1 MCV fL Blood 80.7 - 98.3 fl 92.4 MCH pg Blood 26.7 - 34.0 pg 29.6 MCHC gm/dL Blood 30.8 - 35.9 gm/dL 32.[address] X(10)9/L Blood 153 - 416 x10E9/L 460 High RDW-Cv % Blood 12.1 - 14.9 % 15.1 High MPV fL Blood 9.4 - 12.9 fl 10.9 Component Ref Range & Units 6 mo ago Glucose mg/dL Blood 70 - 105 mg/dL 97 Sodium mmol/L Blood 136 - 145 mmol/L 136 Potassium mmol/L Blood 3.5 - 5.1 mmol/L 4.3 Chloride 98 - 107 mmol/L 105 CO2 22 - 29 mmol/L 21 Low Calcium mg/dL Blood 8.4 - 10.4 mg/dL 9.5 Anion Gap Blood 6 - 16 mmol/L 10 Bun mg/dL Blood 5.3 - 18.7 mg/dL 17 Creatinine 0.57 - 1.11 mg/dL 0.71 EGFRCR CKD-EPI >=90 mL/min/1.73 m2 >90 Imaging/Studies: CT head ([facility], 11/19/2022) : Right frontal craniectomy with extensive encephalomalacia involving theright frontal lobe as well as some involvement of the parietal and temporal lobes. MRI brain ([facility], 11/09/2022): Right MCA territory acute ischemic CVA EEG 06/25/23: Interpretation: The EEG was abnormal due to right hemisphere slowing. Focal slowing indicates focal cerebral dysfunction. 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 A breakthrough interval event that was unwitnessed is favored to ne non-epileptic in etiology given bilateral motor involvement and preserved awareness without amnesia. MRI with large R MCA distribution ischemic insult. Routine EEG with right hemisphere slowing. Given discrepant events, and patient's desire for diagnostic clarity, we will pursue EMU evaluation. In the context of comorbid headaches and weight gain, we will transition off of valproic acid and trial topiramate. Plan - continue levetiracetam 1000mg twice daily - start topiramate 25mg twice daily for 1 week, then 50mg twice daily thereafter - stop divalproex after 1 week on goal dose of topiramate - EMU admission for event characterization - seizure precautions, no driving per [place] law - patient will work with prescribing physicians to improve polypharmacy burden as she is on multiple sedating medications - patient will consider referral to a final touch up painter - RTC 3 months My total encounter time on 09/25/2023 was 65 minutes which was spent in the activities documented inthe note. This includes time spent prior to the visit and after the visit in direct care of the patient. This time does not include time spent in any separately reportable services. What is the patient's current mean epileptic seizure frequency? 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 verapamil SR (CALAN SR) 120 mg CR tablet Take 1 tablet (120 mg total) by mouth nightly 02/19/2024 added in this encounter Care Teams Gl[employer] Stained Glass Relationship Specialty Start Date End Date Jaden Thakur DO [address] [place] [id number] PCP - General Family Medicine 06/01/23 documented as of this encounter
--- OUTSIDE RECORDS SUMMARY | 2024-03-19 20:53 | XMS_ITS | Encounter Summary ---
Author Organization [facility] Healthcare Address [address] [place] [address] Care Team Providers Care Tax Assessor Name Role Phone Jaden Thakur DO Primary Care Provide r Encounter Details Date Type Department Care Team (Late st Contact Info) Description 11/15/2023 Telephone [facility] Medical Group Orthopedics and Sports Medicine [facility] [address] [place] [id number] Shahab Levy PA [address] [place] [address] [address] [place] [address] Social History Tobacco Use Types Packs/Day Years Used Date Smoking Tobacco: Former Cigarettes Smokeless Tobacco: Never Personal Safety Answer Date Recorded Have you ever been in or are you currently in a harmful physical or emotional relationship or is someone making you feel afraid or unsafe? 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 Springer. I advised we can send referral to another facility. She is stating the pain is getting out of control and is asking for something for pain. I did advise in return message, the clinic does not t ypically give out pain medication unless you have had surgery, asked if she had reached out to her PCP. Please advise. Thank you * Telephone Encounter - Bridgett Mathis MA - 11/16/2023 8:15 AM CDT [facility] know [facility] been placed to Dr. Springer. I also informed her that we do have to have clearance from Neurology. * Telephone Encounter - Bridgett Mathis MA - 11/15/2023 4:08 PM CDT Shruti also messaged the pt back. She is suggesting a pain management referral in the meantime as well. * Telephone Encounter - Shahab Levy PA - 11/15/2023 11:11 AM CDT I reviewed her patient messages and she has an extensive neuro history. Neuro clearance should be obtained due to h/o CVA and seizures. Her new neurologist should be able to do this. documented in this encounter Plan of Treatment Not on file documented as of this encounter Visit Diagnoses Diagnosis Left shoulder pain, unspecified chronicity- Primary Superior glenoid labrum lesion of left shoulder, initial encounter documented in this encounter Care Teams Tax Assessor Relationship Specialty Start Date End Date Jaden Thakur DO [address] [place] [id number] PCP - General Family Medicine 06/01/23 documented as of this encounter
--- OUTSIDE RECORDS SUMMARY | 2024-03-19 20:53 | XMS_ITS | Encounter Summary ---
Author Organization [facility] Healthcare Address [address] [place] [address] Care Team Providers Care Car Sales Consultant Name Role Phone Jaden Thakur DO Primary Care Provide r Encounter Details Date Type Department Care Team (Late st Contact Info) Description 11/02/2023 Telephone [facility] Medical Group Orthopedics and Sports Medicine [address] [facility] [address] [place] [address] Moises Yoon MD [address] [place] [address] [address] [facility] [address] [place] [address] Social History Tobacco Use Types Packs/Day Years [...] on file 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 * Telephone Encounter - Lucy Crabtree - 01/09/2024 2:20 PM CDT Images from the original note were not included. Called and advised patient surgery is canceled and post op appt will be canceled. Moises Yoon MD Stuart, Mary Katherine, PA; Shahab Levy PA; Lucy Crabtree Ok. Please cancel Previous Messages ----- Message ----- From: Shruti Pendleton PA Sent: 01/07/2024 5:21 PM CDT To: Moises Yoon MD Please review this chart. Not sure if you remember this patient. After seeing her last week I do not think surgery will help her. I am trying to get her in into [facility] for pain management and think atthe least she should have a consult on this prior to proceeding with a shoulder scope in Feb. * Telephone Encounter - Bridgett Mathis MA - 12/28/2023 10:24 AM CDT Clearance received from PCP stating they are clearing pt from a PCP standpoint and from a CVA standpoint. * Telephone Encounter - Bridgett Mathis MA - 12/26/2023 9:57 AM CDT Surgery date of 02/18 given to pt through [facility]. * Telephone Encounter - Bridgett Mathis MA - 12/18/2023 1:12 PM CDT Pilar from PCP's office called back. I explained further that we are able to proceed if PCP clears her from a primary standpoint and is comfortable clearing her from CVA standpoint since she does not currently have a neurologist treating her to CVAs. They are getting another message back and willlet me know. * Telephone Encounter - Bridgett Mathis MA - 12/14/2023 2:00 PM CDT Attempted to contact PCP's office again to get clarification on if pt was cleared. Pt stated that she is cleared by PCP and has the form. Message being put back to have someone reach out to me with clarification. * Telephone Encounter - Bridgett Mathis MA - 12/14/2023 12:25 PM CDT Surgery Clearance received from Cardiology. * Telephone Encounter - Bridgett Mathis MA - 12/12/2023 1:53 PM CDT Called and spoke with AMBROSE Sanchez at Dr. Thakur's office. I explained that we are needing clearance for surgery. I also explained the situation that the neurologist pt sees only sees her for Seizures not her history of her CVAs. I asked if Dr. Thakur would be willing to clear her from a PCP and CVA standpoint. stated that he is recommending that pt is seen by a neurologist for her CVAs prior to clearing her. They are currently working on the referral. * Telephone Encounter - Bridgett Mathis MA - 12/12/2023 1:37 PM CDT Called and spoke with [facility] ( Dr. Jenkins). Message being sent back to Dr. Jenkins. I have also faxed a clearance form over. * Telephone Encounter - Bridgett Mathis MA - 11/05/2023 2:19 PM CDT Noted and updated. * Telephone Encounter - Kale Wayne ATC - 11/02/2023 4:27 PM CDT Procedure: Left Shoulder Arthroscopy with Debridement and Biceps Tenotomy DOS: TBD Surgery Clearance Checklist: [x] PCP: Jaden Thakur DO [] Cardiology: [] Endocrinology: [] Pulmonology: [x] Neurology: (In the process of getting a new neurologist) [] Other: Blood Thinner: [x] Yes Name of medication: ASA [] No Is patient a Diabetic: [] Yes [x] No Preferred Outpatient Physical Therapy location: [facility] Reviewed with patient surgery clearance requirements that forms must be returned to our office no later than 72 hours prior to surgery. Later than 72 hours may cause patients surgery to be cancelled and/or rescheduled. Reviewed with patient that appointments with the above provider should be scheduled in a timely manner, and recommend appointments be made no later than 3 weeks prior to surgery. For Total Arthoplasty Surgery: Reviewed with patient labs to be completed prior to surgery, advisedthese must be completed no more than 30 days prior to surgery. Patient was advised to completely these early on in the 30 day window to allow time to address abnormal results if they arise. Labs are to be completed at: Medications to be discontinued prior to surgery were reviewed with patient, and hand out provided listing when to stop prior to surgery. Patient instructed to contact PCP and/or prescribing provider with questions about when to discontinue prior to surgery. For blood thinners, patient was instructed to speak with prescribing provider about when to discontinue and was advised our office needs documentation on when to stop prior to surgery. This can be completed on the form provided for the patient. Reviewed with patient use of surgical soap prior to surgery. Patient was instructed to use the evening before and the morning of surgery. Advised to not wash hair, face, genital, or rectal area. Patient expressed full understanding of the above in preparation for surgery. Patient was advised to contact our office if any questions or concerns arise prior to surgery. DELANEY/ATC Name: Kale Wayne ATC documented in this encounter Plan of Treatment Not on file documented as of this encounter Visit Diagnoses Not on filedocumented in this encounter Care Teams Car Sales Consultant Relationship Specialty Start Date End Date Jaden Thakur DO [address] [place] [id number] PCP - General Family Medicine 06/01/23 documented as of this encounter
--- OUTSIDE RECORDS SUMMARY | 2024-03-19 20:53 | XMS_ITS | Encounter Summary ---
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 Patient aware they need to be NPO after midnight the night before, and to take heart and BP meds with small sip of water prior to arrival. Patient aware they will need a responsible adult to drive them home due to sedation. Patient denies dysphagia or recent surgery/trauma to their neck. Directions given to [facility], and to [facility]. documented in this encounter Plan of Treatment Not on file documented as of this encounter Visit Diagnoses Not on filedocumented in this encounter Care Teams Extrusion Die Repairer Relationship Specialty Start Date End Date Jaden Thakur DO [address] [place] [id number] PCP - General Family Medicine 06/01/23 documented as of this encounter
--- OUTSIDE RECORDS SUMMARY | 2024-03-19 20:53 | XMS_ITS | Encounter Summary ---
Author Organization [facility] Address [address] [place] [address] Phone Care Team Providers Care Health Sanitarian Name Role Phone Jdaen Koenig DO Primary Care Provide r Reason for Referral * Consultation (Routine) - Authorized Specialty Diagnoses / Procedures Referred By Jimena t Referred To Contact Cardiology Diagnoses PFO (patent foramen ovale) Tamir Jenkins MD [address] [facility] [address] [place] [address] Phone: tel: fax: [facility] (All Locations) Referral ID Status Reason Start Date Expiration Date Visits Requested Visits Authorized [id number] Authorized Specialty Services Required 07/30/2023 08/28/2024 12 12 Question Answer Please select the performing region: [facility] (All Locations) [167] # of visits: 1 Comments Eval and treat for loop recorder Encounter Details Date Type Department Care Team (Late st Contact Info) Description 07/30/2023 2:45 PM CDT Office Visit [facility] [address] [facility] [address] [place] [address] Tamir Jenkins MD [address] [facility] [address] [place], [place] [id number] PFO (patent foramen ovale) (Primary Dx) Social History Tobacco Use Types [...] on file 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 Gender Identity Not on file Sexual Orientation Not on file documented as of this encounter Last Filed Vital Signs Vital Sign Reading Time Taken Comments Blood Pressure 107/73 07/30/2023 2:53 PM CDT Pulse 96 07/30/2023 2:53 PM CDT Temperature 36.8 ??C (98.3 ??F) 07/30/2023 2:53 PM CD T Respiratory Rate - - Oxygen Saturation 95% 07/30/2023 2:53 PM CDT Inhaled Oxygen Concentration - - Weight 106.1 kg (234 lb) 07/30/2023 2:53 PM CDT Height 162.6 cm (5' 4 ) 07/30/2023 2:53 PM CDT Body Mass Index 40.17 07/30/2023 2:53 PM CDT documented in this encounter Progress Notes * aTmir Jenkins MD - 07/30/2023 2:45 PM CDT Images from the original note were not included. Cardiovascular Division [facility], [facility] [address] [place], [place] [id number] Patient name: Consuelo Jimenez Date of : 1980 Date of Service: 07/30/2023 Primary Care Provider: Dr Pedro koenig MD Dear Jaden Hayes, DO We had the pleasure of seeing Consuelo Jimenez at [facility] office in [place]. As you recall, she is a pleasant 42 y.o. female that we are seeing with following medical problems Visit Diagnosis 1. 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 2. Dyslipidemia 3. Hypertension. 4. Possible vegetation History of Present Illness She is a 42-year-old female who had a stroke in October of 2022. She came for follow-up she had a SARAH done on 07/11/2023 as below Normal LV and RV size and systolic function. Normal LA and RA sizes. Normal AV without vegetations or masses visualized. No significant valve dysfunction. MADELEINE is free of thrombus with normal Doppler emptying velocities. No color flow Doppler evidence of PFO. No pericardial effusion. Visualized portions of aorta are without significant atheroma. No PFO noted. No shunt noted. Left atrial appendage was free of thrombus. Her etiology of the stroke is still unknown. No lightheadedness dizziness no syncope no palpitationnoted. Past Important Medical History She had a left-sided weakness. She was admitted to [facility]. She had a SARAH done the thought was that she may have a vegetation this was a presumptive diagnosis her blood cultures was negative she was not clinically sick prior to the episode of stroke no other signsof endocarditis noted. She had no PFO. She states she had 1st SARAH done showed questionable vegetation and it was not visualized on the 2nd SARAH. She did get empiric treatment for endocarditis. Meantime after the stroke she had cerebral edema she requiring a removal of the scalp Shah to relieve thecerebral edema she subsequently underwent a cranioplasty on January 10, 2023. Prior to this surgeryher 2nd SARAH was done on January 05, 2023. She stated the possibility of fibroelastoma was discussedwith her since the vegetation was not visualized on the 2nd SARAH the thought was this is possible endocarditis. She came for cardiac 2nd opinion. At present she is still weak on the left side of the body. No history of seizures. No history of loss of consciousness. No chest pain. No palpitation. No other history suggestive endo carditis or thromboembolic phenomena prior to this episode patient washealthy. No history of dental problems. No history of skin lesions no history of instrumentation. She does not have any prosthetic material in the body. ROS: As her HPI, otherwise all other review of systems reviewed and negative Past medical history history of hypertension dyslipidemia. No history of diabetes mellitus. No history of coronary disease. No history of drug abuse no history of trauma no history rheumatological disorder of especially rheumatoid arthritis lupus or scleroderma. No history of malignancy. No historyof any intra vascular procedures. No history of malignancy. Past surgical history She had a decompressive craniotomy at the time of the stroke in October of 2022 and subsequently underwent a cranioplasty to close the craniotomy site on January 10, 2023. Personal history Nonsmoker no alcoholic no drug abuse. Social History Tobacco Use ??? Smoking status: Former Types: Cigarettes ??? Smokeless tobacco: Never Substance and Sexual Activity ??? Drug use: Not on file ??? Sexual activity: Not on file Alcohol Use: Not At Risk (04/10/2019) Received from [facility] AUDIT-C ??? Frequency of Alcohol Consumption: Monthly or less ??? Average Number of Drinks: 1 or 2 ??? Frequency of Binge Drinking: Never Medication She is on aspirin 81 mg a day. Objective Vitals & Physical Exam There were no vitals taken for this visit. GEN: pleasant female in NAD; alert, comfortable, thought content appropriate, HENT: NCAT, MMM, anicteric, no conjunctival pallor CVS: RRR, S1S2, no rubs/murmurs/gallops, no JVP appreciated PULM: non-labored, CTAB, good inspiratory effort ABD: soft, NTND, no organomegaly EXT: equal radial pulses, no edema Neuro: no abnormal movements, tone and sensation grossly intact in all four extremities Skin: warm, dry, cap refill <2sec Cardiac Studies Personally reviewed in clinic by myself SARAH 07/09/2023 SARAH Summary Farooq White MD performed the SARAH probe placement with Fazal Arrington MD. present. Normal LV and RV size and systolic function. Normal LA and RA sizes. Normal AV without vegetations or masses visualized. No significant valve dysfunction. MADELEINE is free of thrombus with normal Doppler emptying velocities. No color flow Doppler evidence of PFO. No pericardial effusion. Visualized portions of aorta are without significant atheroma. Echo 01/05/23 at [facility] ??? Left Ventricle: Left ventricle size is normal. Normal wall thickness. Normal systolic function with a visually estimated EF of 55 - 60%. ??? Right Ventricle: Right ventricle size is normal. Normal systolic function. ??? Aortic Valve: Valve structure is trileaflet. Mildly thickened right [...] contrast. The probe was inserted by the silvering applicator. There was minimal probe insertion difficulty. Moderate sedation was administered. Sedation was managed by the silvering applicator. Lidocaine administered during the study. 7 mg of midazolam administered during the study. 175 mcg of fentanyl administered during the study. There were no complications during the procedure. Prior Study Prior SARAH study available for comparison. Prior study date: 10/23/2022. Changes noted compared to prior study. 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 Echo 11/06/22 ??? Left Ventricle: Left ventricle size is normal. EDV Index [...] 1.59 m/s. AV area by continuity VTI is2.5 cm2. AV area by peak velocity is 2.4 cm2. Pulmonic Valve Valve structure is normal. No cusp thickening. No restricted motion. No regurgitation. No stenosis.PV mean gradient is 2 mmHg. PV area [...] Prior study date: 10/20/2022. No significant changes notedcompared to the prior study. Wall Scoring Baseline Score Index: 1.00 The left ventricular wall motion is normal. Cardiac Cath None Carotid Doppler ; None NM Stress Test none EKG 05/28/2023 Sinus rhythm RSR-pattern V1 and V2. Nonspecific ST T wave changes. Borderline LVH by aVL criteria. Heart rate is 84 beats per minute sinus rhythm. I reviewed the following labs and discussed with the patient. Component 12/14/22 12/11/22 12/07/22 12/04/22 11/30/22 11/27/22 WBC X(10)9/L Blood 11.3 High 10.7 7.3 8.2 6.7 7.4 Rbc X(10)12/L Blood 4.23 3.57 Low 3.43 Low 3.40 Low 3.38 Low 3.34 Low HGB gm/dL Blood 12.5 10.8 Low 10.2 Low 10.2 Low 10.0 Low 9.9 Low HCT % Blood 39.1 33.0 Low 32.1 Low 32.5 Low 32.1 Low 31.8 Low MCV fL Blood 92.4 92.4 93.6 95.6 95.0 95.2 MCH pg Blood 29.6 30.3 29.7 30.0 29.6 29.6 MCHC gm/dL Blood 32.0 32.7 31.8 31[address] X(10)9/L Blood 460 High 401 319 269 254 291 RDW-Cv % Blood 15.1 High 15.1 High 15.2 High 15.1 High 14.9 15.4 High MPV fL Blood 10.9 11.2 11.6 12.0 12.7 12.0 Component 12/14/22 12/11/22 12/07/22 12/04/22 11/30/22 11/27/22 Glucose mg/dL Blood 97 113 High 164 High 74 84 124 High Sodium mmol/L Blood 136 141 138 139 142 138 Potassium mmol/L Blood 4.3 4.2 3.6 4.1 3.8 3.8 Chloride 105 110 High 101 104 105 101 CO2 21 Low 21 Low 23 22 25 26 Calcium mg/dL Blood 9.5 9.0 9.3 9.2 9.1 9.3 Anion Gap Blood 10 10 14 13 12 11 Bun mg/dL Blood 17 11 8 10 16 13 Creatinine 0.71 0.66 0.76 0.70 0.72 0.74 EGFRCR CKD-EPI >90 >90 >90 >90 >90 >90 Component Ref Range & Units 1 yr ago CHOLESTEROL 100 - 199 mg/dL 180 TRIGLYCERIDES 0 - 149 mg/dL 231 High HDL >39 mg/dL 40 VLDL CALCULATION 5 - 40 mg/dL 40 LDL (CALCULATED) 0 - 99 mg/dL 100 High Assessment Recommendations 1. CVA with left-sided weakness the etiology is unclear. Her SARAH done at [facility] is unremarkable as mentioned above. Her venous Doppler of the lower extremity done on 07/09/2023 shows no evidence of deep vein thrombosis. Previous SARAH showed no evidence of PFO. She is currently on aspirin a day she will continue that. She is getting physical therapy for her stroke. She remained in sinus rhythm. Will refer to the EP for possibility of loop recorder implantation. No history of atrial fibrillation or complain of palpitation. The etiology of CVA remained unclear. Thank you for the opportunity to participate in the care of this wonderful patient. We will plan onseeing Consuelo Jimenez in a year. Please do not hesitate to contact us with any questions or concerns that may arise in the interim. Tamir Jenkins M.D., Robin.Cecily., M.B.A. application release manager Cardiovascular Division [facility] [place] [address] This note contains information and findings from prior encounters which remain the same for today'sencounter. I have reviewed and made updates where applicable. This note was written using a voice recognition system hardware device. Please note there may be variance in spelling, grammar, and syntax because of the voice recognition system hardware. Therefore,not every sentence has been reviewed in its entirety. If there are any concerns about verbage aboveplease contact me at [phone]. documented in this encounter Plan of Treatment Scheduled Referrals Name Type Priority Associated Diagnoses Order Schedule Ambulatory referral to Cardiac Electrophysiology Outpatient Referral Routine PFO (patent foramen ovale) Expected: 08/13/2023 (Approximate), Expires: 07/29/2024 documented as of this encounter Visit Diagnoses Diagnosis PFO (patent foramen ovale)- Primary Ostium secundum type atrial septal defect documented in this encounter Care Teams Health Sanitarian Relationship Specialty Start Date End Date Jaden Koenig DO [address] [place] [id number] PCP - General Family Medicine 06/01/23 documented as of this encounter
--- OUTSIDE RECORDS SUMMARY | 2024-03-19 20:53 | XMS_ITS | Encounter Summary ---
Author Organization [facility] Healthcare Address [address] [place] [address] Care Team Providers Care Tool And Fixture Repairer Name Role Phone Jaden Thakur Primary Care Provide r Reason for Referral * Procedure (Routine) - Authorized Specialty Diagnoses / Procedures Referred By Jimena muller Referred To Contact Diagnoses Chronic left shoulder pain Procedures Large Joint Injection(shoulder/knee/hip): L subacromial bursa Cheli García MD Phone: tel: fax: [facility] Referral ID Status Reason Start Date Expiration Date V isits Requested Visits Authorized [id number] Authorized 08/31/2023 09/29/2024 1 1 Reason for Visit * Reason Comments Pain DOI: Stroke 10/2022 (affected L side, pt is unable to move L arm)Pt recently had a seizure last week causing her shoulder to hurt more Encounter Details Date Type Department Care Team (Late st Contact Info) Description 08/31/2023 9:00 AM CDT Office Visit [facility] Sports Medicine and Primary Care at [address] [place] [address] Cheli García MD [address] [place] [address] [address] [place] [address] Chronic left shoulder pain (Primary Dx); Left hemiparesis (CMS/HCC) (HCC); Tear of left acetabular labrum, subsequent encounter; Left hip pain; Seizure disorder (CMS/HCC) (HCC) Social History Tobacco Use Types [...] on file 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 Gender Identity Not on file Sexual Orientation Not on file documented as of this encounter Last Filed Vital Signs Vital Sign Reading Time Taken Comments Blood Pressure 98/68 08/31/2023 9:04 AM CDT Pulse 99 08/31/2023 9:04 AM CDT Temperature - - Respiratory Rate - - Oxygen Saturation - - Inhaled Oxygen Concentration - - Weight 108.7 kg (239 lb 9.6 oz) 08/31/2023 9:04 AM CDT Height 167 cm (5' 5.75 ) 08/31/2023 9:04 AM CDT Body Mass Index 38.97 08/31/2023 9:04 AM CDT documented in this encounter Patient Instructions * Patient Instructions* Cheli Garcaí MD - 08/31/2023 9:00 AM CDT You received a Cortisone injection today. Continue to rest the joint for a few more days before resuming regular activities. It may be more painful for the first 1-2 days. Apply ice to the area for 5-10 minutes three times a day for 3 days. Watch for fever, or increased swelling or persistent pain in the joint. It can take a least 3-5 days to start seeing benefit of the injection. Call or return to clinic as needed if such symptoms occur or there is failure to improve as anticipated. Let me know in a few weeks how it is doing. If minimal benefit, then we can try to get a shoulder MRI. If helps, we can repeat every 3-4 months or further apart if needed documented in this encounter Progress Notes * Cheli García MD - 08/31/2023 9:00 AM CDT Images from the original note were not included. [facility] Primary Care Sports Medicine at [place] [facility] Consult PCP: Jaden Thakur, Chief Complaint Patient presents with Left Shoulder - Pain DOI: Stroke 10/2022 (affected L side, pt is unable to move L arm) Pt recently had a seizure last week causing her shoulder to hurt more FOLLOW UP VISIT, new complaint Subjective CHIEF COMPLAINT She had concerns including Pain of the Left Shoulder (DOI: Stroke 10/2022 (affected L side, pt is unable to move L arm)//Pt recently had a seizure last week causing her shoulder to hurt more). HISTORY OF PRESENT ILLNESS Patient here for evaluation of left shoulder. Previously seen for left hip issues. Patient has a history of prior stroke with complete left hemiparesis. She has no function in the left shoulder. She has been immobilized in a sling long-term since her stroke. She does have a history of seizure disorders and did have a seizure about a week ago. Patient notes she has had chronic pain in his shouldersince a stroke last year. She is unable to move the shoulder at all. She notes there is pain in hisshoulder at all times but it is worse when somebody attempts to move it. She does not believe the shoulder has been dislocated during any of her seizures. Denies looking dislocated after the recent seizure She does note that the pain in his shoulder was much worse after her seizure 1 week ago Patient was last seen for her left hip with labral tear. Ultrasound-guided corticosteroid injectionwas done in the hip joint. She notes the left hip pain is doing much better since last visit. Overall she is happy with how it feels. Pain Assessment Pain Assessment: 0-10 Pain Score: (Now: 4/10, Worst: 6/10) Pain Location: Shoulder Pain Orientation: Left Pain Descriptors: Discomfort, Aching, Sharp, Shooting, Tender, Sore, Radiating Pain Frequency: Constant/continuous Pain Onset: Sudden Clinical Progression: Gradually worsening Aggravating Factors: Exercise, Straightening, Stretching, Bending, Other (Comment) (Pt unable to move her arm on her own) Result of Injury: Yes Work-Related Injury: No Patient's Stated Pain Goal: No pain Pain Interventions: Rest, Medication (See MAR), Home medication, Cold applied, Other (Comment) (Occupation Therapy, Stretching) MEDICATIONS She has a current medication list which includes the following prescription(s): aspirin, baclofen, buspirone, cetirizine, cholecalciferol, cyclobenzaprine, divalproex dr, duloxetine dr, hydrocodone-acetaminophen, hydroxyzine, levetiracetam, metoprolol tartrate, pantoprazole dr, polyethylene glycol,and verapamil. REVIEW OF SYSTEMS Review of Systems Objective PHYSICAL EXAM BP 98/68 Pulse 99 Ht 167 cm (5' 5.75 ) Wt 108.7 kg (239 lb 9.6 oz) BMI 38.97 kg/m?? Gen - pleasant, no acute distress. Left hemiparesis in wheelchair and left arm in sling Psych - relatively flat affect but does not appear overly anxious or depressed Ortho Exam Left shoulder - there is some tenderness to palpation over the shoulder diffusely. No erythema or deformity open wounds. No signs of malalignment. Patient has no active range motion to shoulder due to her hemiparesis from her prior stroke. I am able to passively abduct to about 130-140 degrees before limited due to pain. She has external rotation passively to about 45?? with some pain at end range motion. Positive [place]. Internal rotation when done at 90?? of abduction is to about 45??. Rotator strength testing deferred due to patient's hemiparesis REVIEW OF X-RAYS/STUDIES/LABS Shoulder x-rays dated 08/09/2022 were provided by patient for independent review. I personally reviewed these images with her at time of appointment. I do not appreciate any fracture or dislocation. There is normal glenohumeral alignment on the scapular Y view. No signs of posterior or anterior dislocation. The humerus does appear slightly low on the glenoid but is not dislocated, this may suggest slight inferior subluxation. There is minimal degenerative changes. I discussed my interpretation of the x-rays at time of appointment. We do not have official read Assessment/Plan Consuelo Elliott was seen today for pain. Diagnoses and all orders for this visit: Chronic left shoulder pain - Large Joint Injection(shoulder/knee/hip): L subacromial bursa - lidocaine (XYLOCAINE) 20 mg/mL (2 %) injection 2 mL - methylPREDNISolone acetate (DEPO-medrol) injection 80 mg Left hemiparesis ([facility]) (HCC) Tear of left acetabular labrum, subsequent encounter Left hip pain Seizure disorder ([facility]) (HCC) Patient has relatively complete left hemiparesis. Due to her stroke she has really no function examination shine for the rotator cuff. It is unable to assess with the rotator cuff has been torn. The shoulder does not appear dislocated it may have slight subluxation on review her x-rays. While MRI could be obtained to assess for possible rotator cuff or ligamentous tearing affecting the joint alignment I am not sure if she had be a good surgical candidate given there is really no function to those muscles to be given with. I think it would be reasonable to try conservative treatment before pursuing advanced imaging and surgical consult. We discussed options with patient and her spouse via thephone Given this is her hemiparesis side recommended a trial of corticosteroid injection to see if we canhelp with pain relief. We discussed the risks and benefits as well as alternatives for treatment ofher left shoulder. After discussing risks and benefits left shoulder corticosteroid injection was done both into the glenohumeral joint as well as the subacromial joint space. Post- injection care wasdiscussed. We will see how she responds to this over the next several weeks. If no significant lasting benefit then we will obtain an MRI to further evaluate the rotator cuff as well as joint capsuleand ligaments. If it confirms surgical pathology and failing conservative treatment the next step wo uld be arrange for surgical consultation Patient has hemiparesis from prior stroke we will make it more difficult to treat her left hip and shoulder issues long-term as she is less likely benefit from conservative management with physical therapy. The left hip pain from the acetabular labral tear is actually doing much better since the last corticosteroid injection. As long as he continues to provide benefit we can repeat these every 6-12 months. If it last for 3 months and symptoms start to recur we can always discuss the risks and benefits of doing another injection. Patient will continue her chronic hydrocodone for pain. We do need to monitor patient's shoulder. Given she has a history of seizures there is increased risk for recurrent shoulder dislocation subluxation during the episodes. She was advised that if any time after seizure her shoulder is more malaligned or looks out of place then she should be evaluatedwith repeat x- rays to assess for possible dislocation that we will need to be reduced. She will continue working with her neurologist in regards to treatment the seizures Lengthy discussion was had with patient. She will update me by phone in a few weeks to let me know how she has doing after the injection. If no benefit of time then we will obtain an MRI in her shoulder An After Visit Summary was printed and given to the patient. Cheli García MD documented in this encounter Procedure Notes * Cheli García MD - 08/31/2023 9:00 AM CDTAssociated Order(s): Large Joint Injection(shoulder/knee/hip): L subacromial bursa Post-Procedure Diagnose(s): Chronic left shoulder pain Large Joint Injection(shoulder/knee/hip): L subacromial bursa Performed by: Cheli García MD Authorized by: Cheli García MD Large Joint Injection/Aspiration: Consent Given by: Patient Site marked: the procedure site was marked Timeout: prior to procedure the correct patient, procedure, and site was verified Verbal consent obtained: Yes Written consent obtained: Yes Supporting Documentation: Indications: Pain Procedure Details: Location: Shoulder Site: L subacromial bursa Prep: patient was prepped using a clean technique Needle Size: 22 G Approach: Posterior Ultrasound guided: No Fluroscopic guidance: No Medications: 2 mL lidocaine 20 mg/mL (2 %); 80 mg methylPREDNISolone acetate 80 mg/mL Patient tolerance: Patient tolerated the procedure well with no immediate complications Verbal and written consent was obtained from the patient. Consent included possibility of bleeding,infection, hypoglycemia, hyperglycemia, increased pain, steroid flare, and permanent hypopigmentation and fat atrophy. Injectate was prepared with 2 ml of 2% lidocaine without epinephrine and 1 ml of Depo-Medrol 80 mg/ml. Sterile prep. Using a posterior approach, I then injected the patient's LEFT subacromial space after aspiration without withdraw with 1.5 ml of Injectate. The needle was then partially withdrawn and redirected into the glenohumeral joint space where the remaining 1.5 ml of injectate was injected. The patient tolerated the procedure well. There were no complications. Post- injection care was discussed documented in this encounter Plan of Treatment Not on file documented as of this encounter Procedures Procedure Name Priority Date/Time Associated Diagnosis Comments PA ARTHROCENTESIS ASPIR&/INJ MAJOR JT/BURSA W/O US Routine 08/31/2023 9:00 AM CDT Chronic left shoulder pain documented in this encounter Results * PA ARTHROCENTESIS ASPIR&/INJ MAJOR JT/BURSA W/O US (08/31/2023 9:00 AM CDT) Narrative Cheli García MD - 08/31/2023 9:00 AM CDT Cheli García MD ? 08/31/2023 ??1:52 PM Large Joint Injection(shoulder/knee/hip): L subacromial bursa Performed by: Cheli García MD Authorized by: Cheli García MD ?? Large Joint Injection/Aspiration: ??Consent Given by: ??Patient ??Site marked: the procedure site was marked ?Timeout: prior to procedure the correct patient, procedure, and site was verified ?Verbal consent obtained: Yes ?Written consent obtained: Yes ?? Supporting Documentation: ??Indications: ??Pain Procedure Details: ??Location: ??Shoulder ??Site: ??L subacromial bursa ??Prep: patient was prepped using a clean technique ?Needle Size: ??22 G ??Approach: ??Posterior ??Ultrasound guided: No ?Fluroscopic guidance: No ?Medications: ??2 mL lidocaine 20 mg/mL (2 %); 80 mg methylPREDNISolone acetate 80 mg/mL ??Patient tolerance: ??Patient tolerated the procedure well with no immediate complications ?? Verbal and written consent was obtained from the patient. Consent included possibility of bleeding, infection, hypoglycemia, hyperglycemia, increased pain, steroid flare, and permanent hypopigmentation and fat atrophy. Injectate was prepared with 2 ml of 2% lidocaine without epinephrine and 1 ml of Depo-Medrol 80 mg/ml. Sterile prep. ??Using a posterior approach, I then injected the patient's LEFT subacromial space after aspiration without withdraw with 1.5 ml of Injectate. The needle was then partially withdrawn and redirected into the glenohumeral joint space where the remaining 1.5 ml of injectate was injected. The patient tolerated the procedure well. There were no complications. ??Post-injection care was discussed us Cheli García MD IN CLINIC[facility]IDE [facility] Final Result documented in this encounter Visit Diagnoses Diagnosis Chronic left shoulder pain- Primary Pain in joint, shoulder region Left hemiparesis (CMS/HCC) (HCC) Unspecified hemiplegia affecting unspecified side Tear of left acetabular labrum, subsequent encounter Left hip pain Pain in joint, pelvic region and thigh Seizure disorder (CMS/HCC) (HCC) Unspecified epilepsy without mention of intractable epilepsy documented in this encounter Administered Medications Inactive Administered Medications - up to 3 most recent administrations Medication Order MAR Action Action Date Dose Rate Site lidocaine (XYLOCAINE) 20 mg/mL (2 %) injection 2 mL 2 mL, One-Time Injection, Starting on Sun08/31/23 at 0900, For 1 dose, Indications: Administration of Local AnesthesiaIndications:Adminis tration of Local Anesthesia Given 08/31/2023 9:00 AM CDT 2 mL Left Shoulder methylPREDNISolone acetate (DEPO-medrol) injection 80 mg 80 mg, intra-articular, One-Time Injection, Starting on Sun08/31/23 at 0900, For 1 doseIndications:Chronic left shoulder pain Given 08/31/2023 9:00 AM CDT 80 mg Left Shoulder documented in this encounter Care Teams Tool And Fixture Repairer Relationship Specialty Start Date End Date Jaden Thakur DO [address] [place] [id number] PCP - General Family Medicine 06/01/23 documented as of this encounter
--- OUTSIDE RECORDS SUMMARY | 2024-03-19 20:53 | XMS_ITS | Encounter Summary ---
Author Organization [facility] Healthcare Address [address] [place] [address] Care Team Providers Care Mobile Security Specialist Name Role Phone Jaden Thakur Primary Care Provide r Reason for Referral * MRI/CAT/PET Scan (Routine) - Closed Specialty Diagnoses / Procedures Referred By Kaiac t Referred To Contact Radiology Diagnoses Chronic left shoulder pain Procedures MRI Shoulder Left WO Contrast Cheli Benedict MD Phone: tel: fax: [address] [phone] Referral ID Status Reason Start Date Expiration Date Visits Re quested Visits Authorized [id number] Closed 09/10/2023 10/09/2024 1 1 Reason for Visit * MRI/CAT/PET Scan (Routine) - Closed Specialty Diagnoses / Procedures Referred By Jimena muller Referred To Contact Radiology Diagnoses Chronic left shoulder pain Procedures MRI Shoulder Left WO Contrast Cheli Benedict MD Phone: tel: fax: [address] [phone] Referral ID Status Reason Start Date Expiration Date Visits Re quested Visits Authorized [id number] Closed 09/10/2023 10/09/2024 1 1 Encounter Details Date Type Department Care Team (Latest Contact Info) Description 10/02/2023 7:06 AM CDT - 10/02/2023 11:59 PM CDT Hospital Encounter [facility] [address] [place] [address] Chronic left shoulder pain Discharge Disposition: Discharge to home or self [...] on file 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 Gender Identity Not on file Sexual Orientation Not on file documented as of this encounter Medications at Time of Discharge busPIRone (BUSPAR) 5 mg tablet Take 1 tablet (5 mg total) by mouth 2 (two) times a day 06/29/2023 cetirizine 10 mg tablet,disintegra ting Take 10 mg by mouth nightly cholecalciferol 25 mcg (1,000 unit) tablet 2 tablets (2,000 Units total) daily 12/14/2022 cyclobenzaprine (FLEXERIL) 5 mg tablet Take 1 tablet (5 mg total) by mouth 3 (three) times a day 12/14/[address] (CYMBALTA) 60 mg capsule Take 1 capsule (60 mg total) by mouth daily 02/15/2023 HYDROcodone-aceta minophen (NORCO) 10-325 mg per tablet Take 1 tablet by mouth every 6 (six) hours as needed 06/12/2023 hydrOXYzine (ATARAX) 25 mg tablet Take 1 tablet (25 mg total) by mouth every 8 (eight) hours as needed 09/26/2023 metoprolol tartrate (LOPRESSOR) 25 mg immediate release tablet Take 1 tablet (25 mg total) by mouth 2 (two) times a day 12/14/[address] (PROTONIX) 40 mg EC tablet Take 1 tablet (40 mg total) by mouth daily 03/21/2023 polyethylene glycol (MIRALAX) 17 gram packet 1 packet (17 g total) 2 (two) times a day as needed 12/14/2022 aspirin 325 mg tablet Take 81 mg by mouth daily 12/18/2023 baclofen (LIORESAL) 5 mg tablet Take 2 tablets (10 mg total) by mouth daily 12/14/2022 02/12/[address] (DEPAKOTE) 250 mg EC tablet Take 1 tablet (250 mg total) by mouth every morning AND 2 tablets (500 mg total) nightly. 90 tablet 1 09/19/2023 10/21/2023 hydrOXYzine (VISTARIL) 25 mg capsule Take 1 capsule (25 mg total) by mouth 3 (three) times a day as needed for itching 12/18/2023 levETIRAcetam (KEPPRA) 1,000 mg tablet Take 1 tablet (1,000 mg total) by mouth 2 (two) times a day 60 tablet 11 09/25/2023 10/21/2023 topiramate (TOPAMAX) 25 mg tablet Take 1 tablet (25 mg total) by mouth 2 (two) times a day for 7 days, THEN 2 tablets (50 mg total) 2 (two) times a day. 120 tablet 11 09/25/2023 10/21/2023 verapamil SR (CALAN SR) 120 mg CR tablet Take 1 tablet (120 mg total) by mouth nightly 02/19/2024 documented as of this encounter Discharge Disposition Disposition Code Departure Means Destination Discharge to home or self care documented in this encounter Plan of Treatment Not on file documented as of this encounter Procedures Procedure Name Priority Date/Time Associated Diagnosis Comments MRI SHOULDER LEFT WO CONTRAST Schedule Routine, Read Routine (OP Routine) 10/02/2023 8:20 AM CDT Chronic left shoulder pain documented in this encounter Results * MRI Shoulder Left WO Contrast (10/02/2023 8:20 AM CDT) Anatomical Region Laterality Modality Upper Extremities Left Magnetic Reson ance 10/02/2023 11:3 7 AM CDT Impressions 10/02/2023 5:29 PM CDT 1. ??Moderate tendinopathy of the subscapularis and supraspinatus with bursal surface fraying of the supraspinatus tendon. 2. ??Tear of the superior and posterior glenoid labrum. Dictated by: Kelin Fischer M.D. The radiology attending physician has personally reviewed this study, and had reviewed and/or edited this written report and agrees with it. Electronically signed by: Janeen Wilson MD Narrative 10/02/2023 5:29 PM CDT EXAMINATION: 1. MRI left shoulder without contrast HISTORY: ??Left shoulder pain COMPARISON: Left shoulder radiographs 08/10/2023 TECHNIQUE: Multiplanar multisequence MR examination of the left shoulder was performed without intravenous contrast. FINDINGS: There is a type 2 acromion. The coracoacromial ligament is normal. There is no subacromial spur. There is no acromioclavicular osteoarthritis. There is trace subacromial subdeltoid bursitis. There is mild fatty atrophy of the rotator cuff muscles, most pronounced in the infraspinatus. The subscapularis is intact with moderate insertional tendinopathy. ??There is moderate tendinopathy of the supraspinatus with bursal surface fraying. ??The infraspinatus and teres minor muscles are intact. On this nonarthrographic evaluation, there is a nondisplaced tear involving the the superior and posterior labrum. ??The inferior labrum is intact. The intra-articular biceps tendon is normal. There is no glenohumeral chondrosis. There is a physiologic amount of fluid within the glenohumeral joint. No loose bodies are identified. The bone marrow signal is normal. There is nonspecific focal hyperemia in the medial aspect of the supraspinatus muscle, without a visualized mass. Procedure Note Mare Wilson MD - 10/02/2023 EXAMINATION: 1. MRI left shoulder without contrast HISTORY: Left shoulder pain COMPARISON: Left shoulder radiographs 08/10/2023 TECHNIQUE: Multiplanar multisequence MR examination of the left shoulder was performed without intravenous contrast. FINDINGS: There is a type 2 acromion. The coracoacromial ligament is normal. There is no subacromial spur. There is no acromioclavicular osteoarthritis. There is trace subacromial subdeltoid bursitis. There is mild fatty atrophy of the rotator cuff muscles, most pronounced in the infraspinatus. The subscapularis is intact with moderate insertional tendinopathy. There is moderate tendinopathy of the supraspinatus with bursal surface fraying. The infraspinatus and teres minor muscles are intact. On this nonarthrographic evaluation, there is a nondisplaced tear involving the the superior and posterior labrum. The inferior labrum is intact. The intra-articular biceps tendon is normal. There is no glenohumeral chondrosis. There is a physiologic amount of fluid within the glenohumeral joint. No loose bodies are identified. The bone marrow signal is normal. There is nonspecific focal hyperemia in the medial aspect of the supraspinatus muscle, without a visualized mass. IMPRESSION: 1. Moderate tendinopathy of the subscapularis and supraspinatus with bursal surface fraying of the supraspinatus tendon. 2. Tear of the superior and posterior glenoid labrum. Dictated by: Kelin Fischer M.D. The radiology attending physician has personally reviewed this study, and had reviewed and/or edited this written report and agrees with it. Electronically signed by: Janeen Wilson MD Cheli Benedict MD IM MRI PROCEDURES Fin al Result documented in this encounter Visit Diagnoses Diagnosis Chronic left shoulder pain Pain in joint, shoulder region documented in this encounter Care Teams Mobile Security Specialist Relationship Specialty Start Date End Date Jaden Thakur DO [address] [place] [id number] PCP - General Family Medicine 06/01/23 documented as of this encounter
--- OUTSIDE RECORDS SUMMARY | 2024-03-19 20:53 | XMS_ITS | Encounter Summary ---
Author Organization [facility] Healthcare Address [address] [place] [address] Care Team Providers Care Regulator Inspector Name Role Phone Jaden Thakur DO Primary Care Provide r Reason for Visit * Reason Onset Date Comments L Shoulder MRI PA 09/10/2023 Encounter Details Date Type Department Care Team (Late st Contact Info) Description 09/10/2023 Telephone [facility] Medical [facility] Sports Medicine and Primary Care at [address] [place] [id number] Ayanna Alamo ATC L Shoulder MRI PA Social History Tobacco Use Types Packs/Day Years [...] on file 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 CPT: 61995 Website/Phone #: Ericka Auth: [id number] Valid Dates: 09/10/2023 - 03/08/2024 Facility: [facility] Date/Time: 09/11/2023 in PM * Telephone Encounter - Ayanna Alamo ATC - 09/11/2023 8:54 AM CDT Additional tx plan information faxed to the below fax number per request. F: [phone] * Telephone Encounter - Ayanna Alamo ATC - 09/10/2023 11:03 AM CDT I submitted the pt's MRI PA on Evjennifer. I will await a response. Service Order: [id number] Case Status: Pending Initiated Date: 09/10/2023 Case Activity: Submission in Progress documented in this encounter Plan of Treatment Not on file documented as of this encounter Visit Diagnoses Not on filedocumented in this encounter Care Teams Regulator Inspector Relationship Specialty Start Date End Date Jaden Thakur DO [address] [place] [address] PCP - General Family Medicine 06/01/23 documented as of this encounter
--- OUTSIDE RECORDS SUMMARY | 2024-03-19 20:53 | XMS_ITS | Encounter Summary ---
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
--- OUTSIDE RECORDS SUMMARY | 2024-03-19 20:53 | XMS_ITS | Encounter Summary ---
Author Organization [facility] Healthcare Address [address] [place] [address] Care Team Providers Care Retail Sales Advisor Name Role Phone Jaden Thakur Primary Care Provide r Reason for Referral * Procedure (Routine) - Authorized Specialty Diagnoses / Procedures Referred By Jimena t Referred To Contact Diagnoses Tear of left acetabular labrum, subsequent encounter Left hip pain Procedures Large Joint Arthrocentesis: L hip joint Cheli García MD Phone: tel: fax: [facility] Medical Group Referral ID Status Reason Start Date Expiration Date V isits Requested Visits Authorized [id number] Authorized 06/18/2023 07/17/2024 1 1 Reason for Visit * Reason Comments Pain Injections Encounter Details Date Type Department Care Team (Late st Contact Info) Description 06/18/2023 1:45 PM CDT Office Visit [facility] Medical Group Sports Medicine and Primary Care at [address] [place] [address] Cheli García MD [address] [place] [address] [address] [place] [address] Tear of left acetabular labrum, subsequent encounter (Primary Dx); Left hip pain Social History Tobacco Use Types Packs/Day Years Used Date Smoking Tobacco: Former Cigarettes Smokeless Tobacco: Never Personal Safety Answer Date Recorded Getting School Help Needed Not on file 05/13 Comments Unknown Sex and Gender Information Value Date Recorded Sex Assigned at Not on file 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 Gender Identity Not on file Sexual Orientation Not on file documented as of this encounter Last Filed Vital Signs Vital Sign Reading Time Taken Comments Blood Pressure 107/74 06/18/2023 1:45 PM CDT Pulse 81 06/18/2023 1:45 PM CDT Temperature - - Respiratory Rate - - Oxygen Saturation - - Inhaled Oxygen Concentration - - Weight 102.1 kg (225 lb) 06/18/2023 1:45 PM CDT Height 162.6 cm (5' 4 ) 06/18/2023 1:45 PM CDT Body Mass Index 38.62 06/18/2023 1:45 PM CDT documented in this encounter Patient Instructions * Patient Instructions* Cheli García MD - 06/18/2023 1:45 PM CDT You received a Cortisone injection today. [...] there is failure to improve as anticipated. documented in this encounter Progress Notes * Cheli García MD - 06/18/2023 1:45 PM CDT Images from the original note were not included. [facility] Medical [facility] Primary Care Sports Medicine at [facility] Consult PCP: Jaden Thakur DO Chief Complaint Patient presents with Left Hip - Pain, Injections FOLLOW UP VISIT Subjective CHIEF COMPLAINT She had concerns including Pain and Injections of the Left Hip. HISTORY OF PRESENT ILLNESS Patient is here for follow-up left hip pain for planned ultrasound-guided left hip joint injection.Prior MRI showed a small amount of joint effusion with a subtle labral tear. It is unclear if the labral tear and hip joint effusion are the cause her pain or incidental. she has failed physical therapy previously. Patient does have a history of spastic hemiparesis with stroke. There is a chance that some of the symptoms can be myofascial or central pain syndrome. We are hopeful that the ultrasound guided hip joint injection today can provide some diagnostic as well as therapeutic benefit in terms of her pain generator. Amount of questions were answered in regards to patient's symptoms and possible pain generator/treatment Pain Assessment Pain Assessment: 0-10 Pain Score: 8 Pain Location: Hip Pain Orientation: Left MEDICATIONS She has a current medication list which includes the following prescription(s): nitrofurantoin monohydrate, aspirin, baclofen, cetirizine, cholecalciferol, cyclobenzaprine, divalproex dr, duloxetine dr, hydrocodone-acetaminophen, hydroxyzine, levetiracetam, metoprolol tartrate, pantoprazole dr, polyethylene glycol, and verapamil. Objective PHYSICAL EXAM BP 107/74 Pulse 81 Ht 162.6 cm (5' 4 ) Wt 102.1 kg (225 lb) BMI 38.62 kg/m?? Ortho Exam General appearance: alert, well appearing, and in no distress. Joint exam: There was no rash or irritation to the left hip joint at the planned injection site Large Joint Arthrocentesis: L hip joint Performed by: Cheli García MD Authorized by: Cheli García MD Large Joint Injection/Aspiration: Consent Given by: Patient Site marked: the procedure site was marked Timeout: prior to procedure the correct patient, procedure, and site was verified Verbal consent obtained: Yes Written consent obtained: Yes Supporting Documentation: Indications: Pain Procedure Details: Location: Hip Site: L hip joint Prep: patient was prepped and draped in usual sterile fashion Needle Size: 18 G Approach: Anterolateral Ultrasound guided: Yes Fluroscopic guidance: No Ultrasound guidance used for: Real-time guidance and pre-procedure marking Sterile ultrasond techniques: Sterile gel and sterile probe covers were used Ultrasound note: Use of ultrasound visualization of the needle was required to increase the patient's safety by excluding inadvertent intermuscular or intertendinous placements and minimizing bleeding and injury by avoiding osteochondral and nearby neurovascular structures. Guidance also maximizes a ccurate injection placement and likely clinical benefit beyond that obtained from a non-guided injection. This allows increased diagnostic specificity when evaluating effectiveness of the injection. Verbal and written consent was obtained from the patient. Consent included possibility of bleeding,infection, hypoglycemia, hyperglycemia, increased pain, steroid flare, and permanent hypopigmentation and fat atrophy. Consent additionally included risk of temporary paresthesias and weakness in legdue to proximity of injection to the femoral nerve. Using real-time ultrasound I localized the LEFT hip joint and identified the femoral head/neck junction and as well as the joint capsule. I then medialized the probe and identified the femoral vessels. Sterile prep. Using a 18-gauge 3.5 inch needle I anesthetized the soft tissues with 4 ml of 2% lidocaine using direct ultrasound guidance. I then directed the needle into the joint capsule and injected the patient's LEFT hip joint after aspiration without withdraw with 1 ml of Depo-medrol 80 mg/ml and 2 ml of 2% lidocaine. The patient tolerated the procedure well. There were no complications. Patient reported minimal reduction in pain on repeat testing after injection as not most of her pain is at rest and improves on movement/manipulation Medications: 6 mL lidocaine 20 mg/mL (2 %); 80 mg methylPREDNISolone acetate 80 mg/mL Patient tolerance: Patient tolerated the procedure well with no immediate complications When I went back in the room after patient change she noted the hip was already feeling a lot better than when she walked in and felt it was showing improvement from the lidocaine done with injection Due to patient's body habitus, it was slightly more difficult to obtain accurate views for the hip during injection. I had to have a 3-1/2 inch needle and used the probe to provide added compression of the soft tissue to get the needle down into the joint. Views were obtained to ensure the needle was in the joint but the resolution was decreased due to some anisotropy due to the probe angle that was required to compress the soft tissue to get needle to the joint. If repeat US guided injection needed in the future, likely would benefit from using a 4-5 needle. Pt was advised due to compression needed to achieve joint placement she may develop some bruising around probe site and site of needle entry. She was instructed on proper wound care and to call if any concerns Assessment/Plan Diagnoses and all orders for this visit: Tear of left acetabular labrum, subsequent encounter (O45.014A) (Primary) - Large Joint Arthrocentesis: L hip joint - lidocaine (XYLOCAINE) 20 mg/mL (2 %) injection 6 mL; 6 mL Once PRN - methylPREDNISolone acetate (DEPO-medrol) injection 80 mg; Inject 80 mg into the joint Once PRN Left hip pain (M25.552) - Large Joint Arthrocentesis: L hip joint - lidocaine (XYLOCAINE) 20 mg/mL (2 %) injection 6 mL; 6 mL Once PRN - methylPREDNISolone acetate (DEPO-medrol) injection 80 mg; Inject 80 mg into the joint Once PRN Risks and benefits of corticosteroid injection were discussed. We also discussed alternatives of care. After discussion of risks and benefits, patient elected to proceed with corticosteroid injection. Successful injection was performed in office today. Post-injection care was discussed. As long as patient is getting good lasting benefit we can always consider repeat corticosteroid injection every6-12 months or further part as needed for pain relief. If there is good temporary benefit but it isnot provide good lasting benefits for several months then we may plan referral to Orthopedic surgery discussed surgical intervention. If minimal lasting benefit and really does not see as much benefit at all from the injection then it would suggest the hip joint is less likely the pain generator. At that point may be worthwhile seeing pain management. I would go ahead and give him the card for 1 of the pain management physicians that comes to the [facility]. Questions were answered. Patient agrees with plan An After Visit Summary was printed and given to the patient. We will plan to re-evaluate her in 2 weeks Cheli García MD documented in this encounter Procedure Notes * Cheli García MD - 06/18/2023 1:45 PM CDTAssociated Order(s): Large Joint Arthrocentesis: L hip joint Post-Procedure Diagnose(s): Tear of left acetabular labrum, subsequent encounter; Left hip pain Large Joint Arthrocentesis: L hip joint Performed by: Cheli García MD Authorized by: Cheli García MD Large Joint Injection/Aspiration: Consent Given by: Patient Site marked: the procedure site was marked Timeout: prior to procedure the correct patient, procedure, and site was verified Verbal consent obtained: Yes Written consent obtained: Yes Supporting Documentation: Indications: Pain Procedure Details: Location: Hip Site: L hip joint Prep: patient was prepped and draped in usual sterile fashion Needle Size: 18 G Approach: Anterolateral Ultrasound guided: Yes Fluroscopic guidance: No Ultrasound guidance used for: Real-time guidance and pre-procedure marking Sterile ultrasond techniques: Sterile gel and sterile probe covers were used Ultrasound note: Use of ultrasound visualization of the needle was required to increase the patient's safety by excluding inadvertent intermuscular or intertendinous placements and minimizing bleeding and injury by avoiding osteochondral and nearby neurovascular structures. Guidance also maximizes a ccurate injection placement and likely clinical benefit beyond that obtained from a non-guided injection. This allows increased diagnostic specificity when evaluating effectiveness of the injection. Verbal and written consent was obtained from the patient. Consent included possibility of bleeding,infection, hypoglycemia, hyperglycemia, increased pain, steroid flare, and permanent hypopigmentation and fat atrophy. Consent additionally included risk of temporary paresthesias and weakness in legdue to proximity of injection to the femoral nerve. Using real-time ultrasound I localized the LEFT hip joint and identified the femoral head/neck junction and as well as the joint capsule. I then medialized the probe and identified the femoral vessels. Sterile prep. Using a 18-gauge 3.5 inch needle I anesthetized the soft tissues with 4 ml of 2% lidocaine using direct ultrasound guidance. I then directed the needle into the joint capsule and injected the patient's LEFT hip joint after aspiration without withdraw with 1 ml of Depo-medrol 80 mg/ml and 2 ml of 2% lidocaine. The patient tolerated the procedure well. There were no complications. Patient reported minimal reduction in pain on repeat testing after injection as not most of her pain is at rest and improves on movement/manipulation Medications: 6 mL lidocaine 20 mg/mL (2 %); 80 mg methylPREDNISolone acetate 80 mg/mL Patient tolerance: Patient tolerated the procedure well with no immediate complications When I went back in the room after patient change she noted the hip was already feeling a lot better than when she walked in and felt it was showing improvement from the lidocaine done with injection documented in this encounter Plan of Treatment Not on file documented as of this encounter Procedures Procedure Name Priority Date/Time Associated Diagnosis Comments AK ARTHROCENTESIS ASPIR&/INJ MAJOR JT/BURSA W/US Routine 06/18/2023 1:45 PM CDT Tear of left acetabular labrum, subsequent encounter Left hip pain documented in this encounter Results * AK ARTHROCENTESIS ASPIR&/INJ MAJOR JT/BURSA W/US (06/18/2023 1:45 PM CDT) Narrative Cheli García MD - 06/18/2023 1:45 PM CDT Cheli García MD ? 06/18/2023 ??3:00 PM Large Joint Arthrocentesis: L hip joint Performed by: Cheli García MD Authorized by: Cheli García MD ?? Large Joint Injection/Aspiration: ??Consent Given by: ??Patient ??Site marked: the procedure site was marked ?Timeout: prior to procedure the correct patient, procedure, and site was verified ?Verbal consent obtained: Yes ?Written consent obtained: Yes ?? Supporting Documentation: ??Indications: ??Pain Procedure Details: ??Location: ??Hip ??Site: ??L hip joint ??Prep: patient was prepped and draped in usual sterile fashion ?Needle Size: ??18 G ??Approach: ??Anterolateral ??Ultrasound guided: Yes ?Fluroscopic guidance: No ?Ultrasound guidance used for: ??Real-time guidance and pre-procedure marking ??Sterile ultrasond techniques: Sterile gel and sterile probe covers were used ?Ultrasound note: ??Use of ultrasound visualization of the needle was required to increase the patient's safety by excluding inadvertent intermuscular or intertendinous placements and minimizing bleeding and injury by avoiding osteochondral and nearby neurovascular structures. ?? Guidance also maximizes accurate injection placement and likely clinical benefit beyond that obtained from a non-guided injection. ??This allows increased diagnostic specificity when evaluating effectiveness of the injection. Verbal and written consent was obtained from the patient. Consent included possibility of bleeding, infection, hypoglycemia, hyperglycemia, increased pain, steroid flare, and permanent hypopigmentation and fat atrophy. Consent additionally included risk of temporary paresthesias and weakness in leg due to proximity of injection to the femoral nerve. ?? Using real-time ultrasound I localized the LEFT hip joint and identified the femoral head/neck junction and as well as the joint capsule. I then medialized the probe and identified the femoral vessels. Sterile prep. Using a 18-gauge 3.5 inch needle I anesthetized the soft tissues with 4 ml of 2% lidocaine using direct ultrasound guidance. I then directed the needle into the joint capsule and injected the patient's LEFT hip joint after aspiration without withdraw with 1 ml of Depo-medrol 80 mg/ml and 2 ml of 2% lidocaine. The patient tolerated the procedure well. There were no complications. Patient reported minimal reduction in pain on repeat testing after injection as not most of her pain is at rest and improves on movement/manipulation ??Medications: ??6 mL lidocaine 20 mg/mL (2 %); 80 mg methylPREDNISolone acetate 80 mg/mL ??Patient tolerance: ??Patient tolerated the procedure well with no immediate complications us Cheli García MD [facility] Edited Result - Final documented in this encounter Visit Diagnoses Diagnosis Tear of left acetabular labrum, subsequent encounter- Primary Left hip pain Pain in joint, pelvic region and thigh documented in this encounter Administered Medications Inactive Administered Medications - up to 3 most recent administrations Medication Order MAR Action Action Date Dose Rate Site lidocaine (XYLOCAINE) 20 mg/mL (2 %) injection 6 mL 6 mL, One-Time Injection, Starting on Sun06/18/23 at 1345, For 1 dose, Indications: Administration of Local AnesthesiaIndications:Administr ation of Local Anesthesia Given 06/18/2023 1:45 PM CDT 6 mL Left Hip methylPREDNISolone acetate (DEPO-medrol) injection 80 mg 80 mg, intra-articular, One-Time Injection, Starting on Sun06/18/23 at 1345, For 1 doseIndications:Tear of left acetabular labrum, subsequent encounter,Left hip pain Given 06/18/2023 1:45 PM CDT 80 mg Left Hip documented in this encounter Historical Medications * This list may reflect changes made after this encounter. nitrofurantoin monohydrate (MACROBID) 100 mg capsule Take 1 capsule (100 mg total) by mouth 2 (two) times a day 06/04/2023 07/01/2023 added in this encounter Care Teams Retail Sales Advisor Relationship Specialty Start Date End Date Jaden Thakur DO [address] [place] [id number] PCP - General Family Medicine 06/01/23 documented as of this encounter
--- OUTSIDE RECORDS SUMMARY | 2024-03-19 20:53 | XMS_ITS | Encounter Summary ---
Author Organization [facility] Healthcare Address [address] [place] [address] Care Team Providers Care Warp Changer Name Role Phone Jaden Thakur Primary Care Provide r Reason for Visit * MRI/CAT/PET Scan (Routine) - Closed Specialty Diagnoses / Procedures Referred By Conttorin t Referred To Contact Procedures Neuro CT Outside Reference Gonzalez Jaffe MD [facility] [address] [place] [address] Phone: tel: fax: Referral ID Status Reason Start Date Expiration Date Visits Re quested Visits Authorized [id number] Closed 06/02/2023 07/01/2024 1 1 Encounter Details Date Type Department Care Team (Latest Contact Info) Description 06/02/2023 8:32 PM CDT - 06/02/2023 11:59 PM CDT Hospital Encounter 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 Gender Identity Not on file Sexual Orientation Not on file documented as of this encounter Medications at Time of Discharge cetirizine 10 mg tablet,disintegra ting Take 10 mg by mouth nightly cholecalciferol 25 mcg (1,000 unit) tablet 2 tablets (2,000 Units total) daily 12/14/2022 cyclobenzaprine (FLEXERIL) 5 mg tablet Take 1 tablet (5 mg total) by mouth 3 (three) times a day 12/14/[address] (CYMBALTA) 60 mg capsule Take 1 capsule (60 mg total) by mouth daily 02/15/2023 metoprolol tartrate (LOPRESSOR) 25 mg immediate release [...] mg total) by mouth daily 12/14/2022 02/12/2024 HYDROcodone-aceta minophen (NORCO) 5-325 mg per tabletIndications :Pain Take 1 tablet by mouth every 6 (six) hours as needed 07/02/2023 hydrOXYzine (VISTARIL) 25 mg capsule Take 1 capsule (25 mg total) by mouth 3 (three) times a day as needed for itching 12/18/2023 levETIRAcetam (KEPPRA) 500 mg tablet Take 1 tablet (500 mg total) by mouth 2 (two) times a day 01/11/2023 06/14/2023 verapamiL (CALAN) 40 mg tablet Take 125 mg by mouth every 8 (eight) hours 12/14/2022 09/25/2023 documented as of this encounter Discharge Disposition Disposition Code Departure Means Destination Discharge to home or self care documented in this encounter Plan of Treatment Not on file documented as of this encounter Procedures Procedure Name Priority Date/Time Associated Diagnosis Comments NEURO CT OUTSIDE REFERENCE Routine 06/02/2023 8:32 PM CDT documented in this encounter Results * Neuro CT Outside Reference (06/02/2023 8:32 PM CDT) Impressions [facility] - 06/02/2023 8:32 PM CDT These images are for Reference purposes only and have not been reviewed by [facility] Radiology. ??There will be no report generated by a [facility] Radiologist. Narrative [facility] - 06/02/2023 8:32 PM CDT EXAMINATION: ??Images For Reference Purposes Only Gonzalez Jaffe MD IMG CT PROCEDURES Final Result [facility] documented in this encounter Visit Diagnoses Not on filedocumented in this encounter Care Teams Warp Changer Relationship Specialty Start Date End Date Jaden Thakur DO [address] [place] [id number] PCP - General Family Medicine 06/01/23 documented as of this encounter
--- OUTSIDE RECORDS SUMMARY | 2024-03-19 20:53 | XMS_ITS | Encounter Summary ---
Author Organization [facility] Healthcare Address [address] [place] [address] Care Team Providers Care Chief Credit Officer Name Role Phone Jaden Thakur DO Primary Care Provide r Reason for Visit * Auth/Cert (Routine) Specialty Diagnoses / Procedures Referred By Contac t Referred To Contact Diagnoses Seizures (HCC) Seizure (HCC) Procedures video eeg Referral ID Status Reason Start Date Expiration Date Visits Re quested Visits Authorized [id number] 1 1 Encounter Details Date Type Department Care Team (Latest Contact Info) Description 10/15/2023 6:46 AM CDT - 10/21/2023 1:13 PM CDT Hospital Encounter [facility] [address] [place] [address] Munir Waters MD PhD [address] [facility] [address] [place] [address] Discharge Disposition: Discharge to home or self [...] on file Legal Sex Female 10:05 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 Gender Identity Not on file Sexual Orientation Not on file documented as of this encounter Last Filed Vital Signs Vital Sign Reading Time Taken Comments Blood Pressure 128/67 10/21/2023 7:56 AM CDT Pulse 93 10/21/2023 7:56 AM CDT Temperature 37.2 ??C (99 ??F) 10/21/2023 12:14 AM CDT Respiratory Rate 20 10/21/2023 12:14 AM CDT Oxygen Saturation 100% 10/21/2023 12:14 AM CDT Inhaled Oxygen Concentration - - Weight 104.3 kg (229 lb 15 oz) 10/15/2023 7:40 A M CDT Height 162.6 cm (5' 4.02 ) 10/15/2023 7:40 AM CD T Body Mass Index 39.45 10/15/2023 7:40 AM CDT documented in this encounter Discharge Summaries * Munir Waters MD PhD - 10/19/2023 1:18 PM CDT Inpatient Discharge Summary BRIEF OVERVIEW Admitting Provider: Munir Waters MD PhD Discharge Provider: Munir Waters MD PhD Primary Care Physician at Discharge: Jaden Thakur DO [phone] Admission Date: 10/15/2023 Discharge Date: 10/21/2023 Admission Location: [facility] Problems/Diagnoses: Principal Problem: Seizure (HCC) Resolved Problems: No resolved hospital problems. DETAILS OF HOSPITAL STAY Presenting Problem/History of Present Illness: Consuelo Darby is a 42 y.o. year old right-handed female with a history of migraines, R M1 stroke 2022 s/p MT (TICI 2b), HTN, GERD who is being admitted to the EMU for clarification of the differential diagnosis. 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 She did not have any seizures during that stay, but was started on ppx keppra 500 mg BID after reimplantation of DHC which was recommended to continue for 3-6 months. Patient remained seizure free and she was slowing being weaned from Keppra on May 28, 2023 (taperplan: Keppra to 500 mg once daily for 3 weeks followed by 250 mg once daily for 3 weeks and then stop). On May 31, she had event while laying in bed. Prior to this event, she had a 5 day period where she was unable to get her meds. She is amnestic to this event, but her describes hearing slow rhythmic stomping sound while in the bathroom and was not responding to verbal stimuli. When hewent into the room, he found her to have L upward forced gaze preference, not responding, not tracking, and flaccid R arm/leg hanging off the bed. She was bubbling and drooling from her mouth with labored breathing from her lips turning blue. Upon arrival to the ED, she was confused but able totrack and answer questions. She was restarted on keppra 500 mg BID and discharged from the ED. She had no triggers prior to the spell. She mentioned having several headaches the weeks prior to this event, but did not think much of it because her elavil was stopped after her stroke. She was then referred to Dr. Jaffe who she first saw in June who recommended rEEG and depakote was added for seizure/headache management. 08/28, patient called to inform us she had another seizure. Described as sitting in the chair and talking on phone when she felt weakness in her hand and dropped the phone. She later felt her body stiffened followed by violent shaking of the extremities. This was an unwitnessed event and lasted for 15-20 minutes. There was no auras, bowel or bladder incontinence, oral trauma, or LOC. She was increased to keppra 1g BID. Starting 09/14, she had increasing daily headaches and followed up in clinic 09/24 at which point he recommended EMU admission for spell characterization and transitioned off VPA and began topamax. She has no known triggers and no prior history of seizures prior to her stroke. Of note, patient has a L shoulder teninopathy and tear of her labrum. She took all of her medications this morning prior to arriving. Per , he believes she has been become more slow and weak since initiation of topamax. VPA was planned to be tapered off this week. 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 Substance use: none Driving: not currently driving control: No Event #1 Type: Unclassified (FBTCS vs. NEE) [...] Incontinence:No Frequency: Single event Last event: 08/29/23 Hospital Course: She was admitted under the care of Dr. Waters. She was placed on seizure precautions and continuously monitored on Video-EEG. Her anti-seizure medications (ASMs) were changed as necessary to try tocapture her events. Provocative procedures such as photic stimulation, hyperventilation, sleep depri vation, and physical exhaustion from riding an exercise bike were used as necessary to try to capture her events. Her typical events were not captured during the admission. This is an abnormal video/EEG study. Please see final Video EEG report for full details. She was discharged to home in stable condition. Discharge ASMs: keppra 1500 mg BID, increased this admission; lorazepam 0.5 mg bid x 3 days; topiramate was stopped at the request of the patient as it was felt to be ineffectual for headache control Discharge testing: No additional testing required at this time. Repeat Video-EEG may be required tocharacterize any persistent, worsening, or new events concerning for seizures. Follow-up: with Dr. Jaffe as scheduled Active Issues Requiring Follow-up: Test Results Pending at Discharge: Operative Procedures Performed: Other Procedures: Pertinent Test Results: vEEG Discharge Details Physical Exam at Discharge: Discharge Condition: good Pulse: 88 Resp: 18 BP: 114/61 Temp: 36.5 ??C (97.7 ??F) Weight: 104.3 kg (229 lb 15 oz) Pertinent Exam Findings at Discharge: None Discharge Disposition: Code Status at Discharge: FC Discharge Instructions: 1) Please continue your home seizure medications as prescribed (levetiracetam increased this admission; topiramate discontinued) 2) Neurology follow up will be arranged by Neurology Department You were seen for characterization of your spells. Your home medications were initially held but you were restarted on your home seizure medications prior to discharge. You will follow-up in the outpatient setting with Dr. Jaffe in the Epilepsy Clinic: [facility] Epilepsy [phone]. Patient shouldexpect to be contacted with appointment details within the next week if their appointment has not already been finalized. If you have not heard from the office or if you need to change/cancel your appointment please contact the office at the telephone number provided. Important Addresses: [facility] ([facility]): [address] [place] [address] Seizure Precautions - It is [place] and [place] state law that a person cannot drive for 6 months following any spell with alteration in consciousness. You had a spell with an alteration in consciousness, so it is state law that you cannot drive for 6 months. - AVOID activities in which you or someone else could be seriously hurt if you were to have an alteration in consciousness while doing the activity. For example, avoid cooking over an open flame, holding a baby while standing, climbing ladders, taking baths unattended (choose showers instead), or any other activity in which a sudden alteration in consciousness can lead to serious harm. - Call 911 or have someone else call for any of the following: Your seizure lasts longer than 5 minutes. You have a second seizure that happens within 24 hours of your first. You have trouble breathing after a seizure. You cannot be woken after your seizure. You have more than 1 seizure before you are fully awake or aware. Seek care immediately if: You are injured during a seizure. Discharge Medications: Current Medications TAKE these medications aspirin 325 mg tablet Take 81 mg by mouth daily baclofen 5 mg tablet Take 1 tablet (5 mg total) by mouth nightly Commonly known as: LIORESAL busPIRone 5 mg tablet Take 1 tablet (5 mg total) by mouth 2 (two) times a day Commonly known as: BUSPAR cetirizine 10 mg tablet,disintegrating Take 10 mg by mouth nightly cholecalciferol 25 mcg (1,000 unit) tablet 2 tablets (2,000 Units total) daily cyclobenzaprine 5 mg tablet Take 1 tablet (5 mg total) by mouth 3 (three) times a day Commonly known as: FLEXERIL divalproex DR 250 mg EC tablet Take 1 tablet (250 mg total) by mouth every morning AND 2 tablets (500 mg total) nightly. Commonly known as: DEPAKOTE DULoxetine DR 60 mg capsule Take 1 capsule (60 mg total) by mouth daily Commonly known as: CYMBALTA HYDROcodone-acetaminophen 10-325 mg per tablet Take 1 tablet by mouth every 6 (six) hours as needed Commonly known as: NORCO hydrOXYzine 25 mg capsule Take 1 capsule (25 mg total) by mouth 3 (three) times a day as needed for itching Commonly known as: VISTARIL levETIRAcetam 1,000 mg tablet Take 1 tablet (1,000 mg total) by mouth 2 (two) times a day Commonly known as: KEPPRA metoprolol tartrate 25 mg immediate release tablet Take 1 tablet (25 mg total) by mouth 2 (two) times a day Commonly known as: LOPRESSOR pantoprazole DR 40 mg EC tablet Take 1 tablet (40 mg total) by mouth daily Commonly known as: PROTONIX polyethylene glycol 17 gram packet 1 packet (17 g total) 2 (two) times a day as needed Commonly known as: MIRALAX topiramate 25 mg tablet Take 1 tablet (25 mg total) by mouth 2 (two) times a day for 7 days, THEN 2 tablets (50 mg total) 2 (two) times a day. Commonly known as: TOPAMAX Start taking on: September 25, 2023 verapamil SR 120 mg CR tablet Take 1 tablet (120 mg total) by mouth nightly Commonly known as: CALAN SR Outpatient Follow-Up: Future Appointments Date Time Provider Department Center 11/02/2023 11:45 AM Moises Yoon MD [facility] Specialty 12/18/2023 10:45 AM CARD DEVICE CHECK-[facility] [id number] [facility] Cardiology 01/01/2024 11:30 AM Gonzalez Jaffe MD [facility] 600 NL 07/29/2024 3:00 PM Tamir Jenkins MD [facility] Cardiology documented in this encounter Discharge Instructions * Discharge Instructions* Bridgett Diaz MD - 10/19/2023 9:47 AM CDT Change the amount of Keppra you are taking to 1.5 g twice per day (1.5 tablets twice a day) For the next 3 days take 0.5 mg of clonazepam twice per day starting tonight (1 tablet twice a day) You were seen for characterization of your spells. Your home medications were initially held but you were restarted on your home seizure medications prior to discharge. You will follow-up in the outpatient setting with Dr. Jaffe in the Epilepsy Clinic: [facility] Epilepsy [phone]. Patient shouldexpect to be contacted with appointment details within the next week if their appointment has not already been finalized. If you have not heard from the office or if you need to change/cancel your appointment please contact the office at the telephone number provided. Please follow up in 3 months after discharge. Important Addresses: [facility] ([facility]): [address] Seizure Precautions - It is [place] and [place] state law that a person cannot drive for 6 months following any spell with alteration in consciousness. You had a spell with an alteration in consciousness, so it is state law that you cannot drive for 6 months. - AVOID activities in which you or someone else could be seriously hurt if you were to have an alteration in consciousness while doing the activity. For example, avoid cooking over an open flame, holding a baby while standing, climbing ladders, taking baths unattended (choose showers instead), or any other activity in which a sudden alteration in consciousness can lead to serious harm. - Call 911 or have someone else call for any of the following: Your seizure lasts longer than 5 minutes. You have a second seizure that happens within 24 hours of your first. You have trouble breathing after a seizure. You cannot be woken after your seizure. You have more than 1 seizure before you are fully awake or aware. Seek care immediately if: You are injured during a seizure. documented in this encounter Medications at Time [...] (two) times a day as needed 12/14/2022 LORazepam (ATIVAN) 0.5 mg tabletIndications :seizure Take 1 tablet (0.5 mg total) by mouth 2 (two) times a day for 5 doses 5 tablet 10/21/2023 aspirin 325 mg tablet Take 81 mg by mouth daily 12/18/2023 baclofen (LIORESAL) 5 mg tablet Take 2 tablets (10 mg total) by mouth daily 12/14/2022 02/12/2024 hydrOXYzine (VISTARIL) 25 mg capsule Take 1 capsule (25 mg total) by mouth 3 (three) times a day as needed for itching 12/18/2023 verapamil SR (CALAN SR) 120 mg CR tablet Take 1 tablet (120 mg total) by mouth nightly 02/19/2024 documented as of this encounter Ordered Prescriptions Prescription Sig Dispense Quantity Refills Last Filled Start Date End Date LORazepam (ATIVAN) 0.5 mg tabletIndications: seizure Take 1 tablet (0.5 mg total) by mouth 2 (two) times a day for 5 doses 5 tablet 10/21/2023 levETIRAcetam (KEPPRA) 1,000 mg tablet Take 1.5 tablets (1,500 mg total) by mouth 2 (two) times a day 270 tablet 1 10/21/2023 documented in this encounter Discharge Disposition Disposition Code Departure Means Destination Comment s Discharge to home or self care documented in this encounter Progress Notes * Munir Waters MD PhD - 10/21/2023 1:13 PM CDT Video-EEG Report Patient Name: Consuelo Darby [facility] Medical Record Number (MRN): [id number] [facility] Record: No Soarian MRN Date of (): 1980 CC: Jaden Thakur Start Time: 09:56:25 AM 10/21/2023 End Time: 11:13:31 AM 10/21/2023 Introduction: Ms. Darby is a 42 y.o. female with a history of right MCA ischemic stroke s/p [place] (10/2022) and [facility] referred to EMU for characterization of spells concerning for seizures. EEG was performed to evaluate for further characterization of events and epileptiform abnormalities. This is a report of continuous video-EEG monitoring. High definition digital video and digital EEG were recorded continuously with a Person[employer] EEG acquisition system. This was a 32 channel EEG with additional anterior temporal electrodes. Electrodes were placed with collodion following the 10/20 International System. The patient was monitored and observed continuously by technical personnel. Digital seizure and spike detection were utilized during the recording. EEG description: The background was asymmetric with faster frequencies and higher amplitudes observed over the left hemisphere. The awake background included a 10 Hz posterior rhythm, better formed over the left hemisphere, which attenuated with eye opening and activity. During drowsiness, identified by ocular signs and alpha attenuation, there was intermittent, diffuse, asynchronous theta activity admixed with 2-4 Hz polymorphic frontotemporal delta activity. Intermittent admixed polymorphic theta and delta was activity was occasionally observed over the left temporal region. Rare left temporal sharp waves (T7, F7, T7/F7) were observed. Rare right posterior quadrant sharp waves were also observed (P8 > P4). Epoch 7: 09:56:25 AM 10/21/2023 to 11:13:31 AM 10/21/2023 Hyperventilation and photic strobe stimulation were not performed. The interictal EEG was as described above. There were no clinical or electrographic events. Interpretation: This is an abnormal video-EEG epoch due to 1) left temporal epileptiform discharges, 2) right parietal epileptiform discharges, 3) left temporal slowing, and 4) right hemispheric slowing. Focal epileptiform discharges are typically seen in patients with a history of focal seizures. Focal slowing is indicative of focal cerebral dysfunction but is not specific for etiology. By signing this report, the attending Electroencephalographer certifies that he/she personally reviewed the electrodiagnostics study and has edited this report to fully conform with his/her intent. Signing Attending: Munir Waters MD PhD * Munir Waters MD PhD - 10/21/2023 9:29 AM CDT Video-EEG Report Patient Name: Consuelo Darby [facility] Medical Record Number (MRN): [id number] [facility] Record: No Soarian MRN Date of (): 1980 CC: Jaden Thakur Start Time: 09:56:25 AM 10/20/2023 End Time: 09:56:25 AM 10/21/2023 Introduction: Ms. Darby is a 42 y.o. female with a history of right MCA ischemic stroke s/p [place] (10/2022) and [facility] referred to EMU for characterization of spells concerning for seizures. EEG was performed to evaluate for further characterization of events and epileptiform abnormalities. This is a report of continuous video-EEG monitoring. High definition digital video and digital EEG were recorded continuously with a [employer] EEG acquisition system. This was a 32 channel EEG with additional anterior temporal electrodes. Electrodes were placed with collodion following the 10/20 International System. The patient was monitored and observed continuously by technical personnel. Digital seizure and spike detection were utilized during the recording. EEG description: The background was asymmetric with faster frequencies and higher amplitudes observed over the left hemisphere. The awake background included a 10 Hz posterior rhythm, better formed over the left hemisphere, which attenuated with eye opening and activity. During drowsiness, identified by ocular signs and alpha attenuation, there was intermittent, diffuse, asynchronous theta activity admixed with 2-4 Hz polymorphic frontotemporal delta activity. As the record progressed, stage II sleep was identified by vertex waves, sleep spindles and K- complexes. During the recording, there were changes consistent with light and deep sleep stages. Intermittent admixed polymorphic theta and delta was activity was occasionally observed over the left temporal region. Rare left temporal sharp waves (T7, F7, T7/F7) were observed. Rare right posterior quadrant sharp waves were also observed (P8 > P4). Epoch 6: 09:56:25 AM 10/20/2023 to 09:56:25 AM 10/21/2023 Hyperventilation and photic strobe stimulation were not performed. The interictal EEG was as described above. There were no clinical or electrographic events. Interpretation: This is an abnormal video-EEG epoch due to 1) left temporal epileptiform discharges, 2) right parietal epileptiform discharges, 3) left temporal slowing, and 4) right hemispheric slowing. Focal epileptiform discharges are typically seen in patients with a history of focal seizures. Focal slowing is indicative of focal cerebral dysfunction but is not specific for etiology. By signing this report, the attending Electroencephalographer certifies that he/she personally reviewed the electrodiagnostics study and has edited this report to fully conform with his/her intent. Signing Attending: Munir Waters MD PhD * Annie Jimenez MD - 10/21/2023 5:22 AM CDT Patient Name: Consuelo Darby Date of (): 1980 Encounter Date: 10/12/2023 PCP: Jaden Thakur DO Provider: No name on file Consuelo Darby is a 42 y.o. year old right-handed female with a history of history of migraines, R M1 stroke 2022 s/p [place] (TICI 2b), HTN, GERD who was admitted to the EMU for clarification of the differential diagnosis. Subjective Interval Events: No spells overnight. Yesterday patient received photic stimulation and continues to be off anti seizure medications Objective Physical Exam: Vitals: 10/21/23 0014 BP: 110/65 Pulse: 90 Resp: 20 Temp: 37.2 ??C (99 ??F) SpO2: 100% General: The patient appeared well developed, well nourished and well groomed. Extremities: No edema. No other abnormalities were noted. Skin: No abnormalities were noted. Neurological Exam: Mental Status: The patient was alert and oriented to self, person, and place. Followed simple commands. Decreased speech. Cranial Nerves: Pupils 3 mm b/l->2 mm, regular, and reactive to light and accommodation. Extraocular movements intact. Visual torres: L inferior quadranopsia. Symmetric to light touch in V1-V3 distributions bilaterally. L facial droop. Hearing symmetric to voice bilaterally. Palate elevates symme trically. Tongue protrudes midline. Motor: Bulk was normal. Tone was normal. Strength 5/5 on R, LUE 0/5, LLE 3/5. Significant pain withpassive range of motion of her L side. Sensation: The patient had normal sensation to light touch in all four extremities. Coordination: Finger to nose testing was normal bilaterally. Fine finger movements intact. Gait: Deferred for safety. Reflexes: Deferred. Current Facility-Administered Medications Medication Dose Route Frequency Provider Last Rate Last Admin acetaminophen (TYLENOL) tablet 650 mg 650 mg oral Q4H PRN Gilles Carter MD 650 mg at 10/20/232051 aspirin chewable tablet 81 mg 81 mg oral Daily Gilles Carter MD 81 mg at 10/20/231014 baclofen (LIORESAL) tablet 5 mg 5 mg oral Nightly Gilles Carter MD 5 mg at 10/20/232052 busPIRone (BUSPAR) tablet 5 mg 5 mg oral BID Gilles Carter MD 5 mg at 10/20/232052 Carrier Fluids for Secondary Infusion - 0.9% Sodium Chloride 30 mL intravenous PRN Rosa Pena NP cetirizine (ZyrTEC) tablet 10 mg 10 mg oral Nightly Gilles Carter MD 10 mg at 10/20/232051 cholecalciferol (VITAMIN D-3) capsule 2,000 Units 2,000 Units oral Daily Gilles Carter MD 2,000 Units at 10/20/231014 cyclobenzaprine (FLEXERIL) tablet 5 mg 5 mg oral TID Gilles Carter MD 5 mg at 10/20/2320[address]ULoxetine DR (CYMBALTA) extended release capsule 60 mg 60 mg oral Daily Gilles Carter MD 60 mg at 10/20/231014 HYDROcodone-acetaminophen (NORCO) 10-325 mg per tablet 1 tablet 1 tablet oral Q6H PRN Gilles Carter MD 1 tablet at 10/20/232134 hydrOXYzine (VISTARIL) capsule 25 mg 25 mg oral TID PRN Gilles Carter MD [Held by Provider] levETIRAcetam (KEPPRA) tablet 1,000 mg 1,000 mg oral BID Gilles Carter MD metoprolol tartrate (LOPRESSOR) immediate release tablet 25 mg 25 mg oral BID Gilles Carter MD25 mg at 10/20/232051 pantoprazole DR (PROTONIX) extended release tablet 40 mg 40 mg oral Daily Gilles Carter MD 40 mg at 10/20/23 1015 polyethylene glycol (MIRALAX) packet 17 g 17 g oral Daily PRN Gilles Carter MD sodium chloride 0.9% flush 0.5-20 mL 0.5-20 mL intra-catheter Q8H Rosa Dorsey NP 10 mL at 10/20/232052 sodium chloride 0.9% flush 0.5-20 mL 0.5-20 mL intra-catheter PRN Rosa Pena NP [Held by Provider] topiramate (TOPAMAX) tablet 50 mg 50 mg oral BID Gilles Carter MD 50 mg at 10/16/23 0815 verapamil SR (CALAN SR) extended release tablet 120 mg 120 mg oral Nightly Gilles Carter MD 120 mg at 10/20/232051 Laboratory Testing: No results found for: WBC , HGB , HCT , MCV , LABPLAT No results found for: GLUCOSE , CALCIUM , SODIUM , POTASSIUM , CO2 , CHLORIDE , BUNSER , CREATININE No results found for: ALT , AST , GGT , ALKPHOS , BILITOT Assessment Consuelo Darby is a 42 y.o. year old right-handed female with a history of history of migraines, R M1 stroke 2022 s/p [place] (TICI 2b), HTN, GERD who was admitted to the EMU for clarification of the differential diagnosis. #Spell characterization Patient has a history of R M1 stroke which was complicated by malignant edema requiring hemicraniotomy. She was ppx put on keppra 500 mg BID for 6 months. 3 days after beginning taper plan, she had aspell. Semiology is not well characterized but reports her 2 spells generally characterized as L gaze preference, Right sided flaccidity lasting 15 minutes. Unclear if these are epileptic seizures, difficult to localize hemisphere with inconsistent signs, but does have risk factors (stroke, crani). This patient is hooked up to vEEG. There will be suction, oxygen and seizure safety precautions as this patient is at risk for status. AEDs will be weaned as needed to provoke events. Provocative measures such as PS, sleep deprivation and biking will be preformed as needed. This patient will be a full code with a regular diet. This plan of care was discussed with the EMU team and the patient. ThevEEG will be reviewed. -Admit to EMU for vEEG monitoring -Sleep deprivation, HV, PS -ASM taper: Date Medication changes Provoking Factors (Sleep deprivation, Hyperventilation, Photic stimulation) 10/15/2023 Stopped keppra Sleep deprivation 10/16/23 Stop topamax Sleep deprivation 10/17/23 ---- PS 10/18/23 ---- Self Sleep deprivation 10/21/23 Per attending's attestation #R M1 stroke s/p MT 10/2022 [employer] ASSIST[employer] and slurred speech. S/p MT TICI 2b. 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 Currently not ambulatory. Has significant pain with movement of L side. On flexeril, baclofen, and norco at home. -continue home aspirin -continue home pain medications #Migraines -continue verapamil -stop topamax #HTN -Continue metop 25 mg BID -continue verapamil 120 mg qHS #GERD -Protonix 40 mg qD #Mood disorder -continue home cymbalta, buspar -continue home atarax prn Annie Ma MD Adult Neurology, PGY-4 Cosigned by Munir Waters MD PhD at 10/21/2023 2:06 PM CDT Associated attestation - Munir Waters MD PhD - 10/21/2023 2:06 PM CDT I have seen and examined the patient on 10/21/23. I agree with the findings and plan of care as documented in the resident's/fellow's note. I personally reviewed the patient's video-EEG in the last 24 hours, which was notable for left temporal and right parietal sharps. Plan: - d/c home - at request of patient, topiramate discontinued as ineffective for headache: will discuss alternatives with Dr. Jaffe - increase levetiracetam to 1500 mg bid - lorazepam 0.5 mg bid x 3 days - seizure precautions - f/u with Dr. Jaffe I discussed anti-seizure medications with the patient today. I discussed the plan with the patient today. * Munir Waters MD PhD - 10/20/2023 9:34 AM CDT Video-EEG Report Patient Name: Consuelo Darby [facility] Medical Record Number (MRN): [id number] Onur Moon Record: No Carrol MRN Date of (): 1980 CC: Jaden Thakur Start Time: 09:56:25 AM 10/19/2023 End Time: 09:56:25 AM 10/20/2023 Introduction: Ms. Darby is a 42 y.o. female with a history of right MCA ischemic stroke s/p [place] (10/2022) and [facility] referred to EMU for characterization of spells concerning for seizures. EEG was performed to evaluate for further characterization of events and epileptiform abnormalities. This is a report of continuous video-EEG monitoring. High definition digital video and digital EEG were recorded continuously with a Person[employer] EEG acquisition system. This was a 32 channel EEG with additional anterior temporal electrodes. Electrodes were placed with collodion following the 10/20 International System. The patient was monitored and observed continuously by technical personnel. Digital seizure and spike detection were utilized during the recording. EEG description: The background was asymmetric with faster frequencies and higher amplitudes observed over the left hemisphere. The awake background included a 10 Hz posterior rhythm, better formed over the left hemisphere, which attenuated with eye opening and activity. During drowsiness, identified by ocular signs and alpha attenuation, there was intermittent, diffuse, asynchronous theta activity admixed with 2-4 Hz polymorphic frontotemporal delta activity. As the record progressed, stage II sleep was identified by vertex waves, sleep spindles and K- complexes. During the recording, there were changes consistent with light and deep sleep stages. Intermittent admixed polymorphic theta and delta was activity was occasionally observed over the left temporal region. Rare left temporal sharp waves (T7, F7, T7/F7) were observed. Rare right posterior quadrant sharp waves were also observed (P8 > P4). Epoch 5: 09:56:25 AM 10/19/2023 to 09:56:25 AM 10/20/2023 Hyperventilation and photic strobe stimulation were not performed. The interictal EEG was as described above. There were no clinical or electrographic events. Interpretation: This is an abnormal video-EEG epoch due to 1) left temporal epileptiform discharges, 2) right parietal epileptiform discharges, 3) left temporal slowing, and 4) right hemispheric slowing. Focal epileptiform discharges are typically seen in patients with a history of focal seizures. Focal slowing is indicative of focal cerebral dysfunction but is not specific for etiology. By signing this report, the attending Electroencephalographer certifies that he/she personally reviewed the electrodiagnostics study and has edited this report to fully conform with his/her intent. Signing Attending: Munir Waters MD PhD * Marybeth Frederick MD - 10/20/2023 7:55 AM CDT Patient Name: Consuelo Darby Date of (): 1980 Encounter Date: 10/12/2023 PCP: Jaden Thakur DO Provider: No name on file Consuelo Darby is a 42 y.o. year old right-handed female with a history of history of migraines, R M1 stroke 2022 s/p MT (TICI 2b), HTN, GERD who was admitted to the EMU for clarification of the differential diagnosis. Subjective Interval Events: No spells overnight. She stayed awake until 5:30AM Objective Physical Exam: Vitals: 10/19/23 2338 BP: 145/74 Pulse: 81 Resp: 20 Temp: 36.4 ??C (97.5 ??F) SpO2: General: The patient appeared well developed, well nourished and well groomed. Extremities: No edema. No other abnormalities were noted. Skin: No abnormalities were noted. Neurological Exam: Mental Status: The patient was alert and oriented to self, person, and place. Followed simple commands. Decreased speech. Cranial Nerves: Pupils 3 mm b/l->2 mm, regular, and reactive to light and accommodation. Extraocular movements intact. Visual torres: L inferior quadranopsia. Symmetric to light touch in V1-V3 distributions bilaterally. L facial droop. Hearing symmetric to voice bilaterally. Palate elevates symme trically. Tongue protrudes midline. Motor: Bulk was normal. Tone was normal. Strength 5/5 on R, LUE 0/5, LLE 3/5. Significant pain withpassive range of motion of her L side. Sensation: The patient had normal sensation to light touch in all four extremities. Coordination: Finger to nose testing was normal bilaterally. Fine finger movements intact. Gait: Deferred for safety. Reflexes: Deferred. Current Facility-Administered Medications Medication Dose Route Frequency Provider Last Rate Last Admin acetaminophen (TYLENOL) tablet 650 mg 650 mg oral Q4H PRN Gilles Carter MD 650 mg at 10/19/232104 aspirin chewable tablet 81 mg 81 mg oral Daily Gilles Carter MD 81 mg at 10/19/23850 baclofen (LIORESAL) tablet 5 mg 5 mg oral Nightly Gilles Carter MD 5 mg at 10/19/232058 busPIRone (BUSPAR) tablet 5 mg 5 mg oral BID Gilles Carter MD 5 mg at 10/19/232058 Carrier Fluids for Secondary Infusion - 0.9% Sodium Chloride 30 mL intravenous PRN Rosa Pena NP cetirizine (ZyrTEC) tablet 10 mg 10 mg oral Nightly Gilles Carter MD 10 mg at 10/19/232058 cholecalciferol (VITAMIN D-3) capsule 2,000 Units 2,000 Units oral Daily Gilles Carter MD 2,000 Units at 10/19/23850 cyclobenzaprine (FLEXERIL) tablet 5 mg 5 mg oral TID Gilles Carter MD 5 mg at 10/19/232057 DULoxetine (CYMBALTA) extended release capsule 60 mg 60 mg oral Daily Gilles Carter MD 60 mg at 10/19/23850 HYDROcodone-acetaminophen (NORCO) 10-325 mg per tablet 1 tablet 1 tablet oral Q6H PRN Gilles Carter MD 1 tablet at 10/19/232203 hydrOXYzine (VISTARIL) capsule 25 mg 25 mg oral TID PRN Gilles Carter MD [Held by Provider] levETIRAcetam (KEPPRA) tablet 1,000 mg 1,000 mg oral BID Gilles Carter MD metoprolol tartrate (LOPRESSOR) immediate release tablet 25 mg 25 mg oral BID Gilles Carter MD25 mg at 10/19/232058 pantoprazole (PROTONIX) extended release tablet 40 mg 40 mg oral Daily Gilles Carter MD 40 mg at 10/19/23850 polyethylene glycol (MIRALAX) packet 17 g 17 g oral Daily PRN Gilles Carter MD sodium chloride 0.9% flush 0.5-20 mL 0.5-20 mL intra-catheter Q8H [facility] Rosa Pnea, MARLI 10 mL at 10/20/23 0546 sodium chloride 0.9% flush 0.5-20 mL 0.5-20 mL intra-catheter PRN Rosa Pena NP [Held by Provider] topiramate (TOPAMAX) tablet 50 mg 50 mg oral BID Gilles Carter MD 50 mg at 10/16/23 0815 verapamil SR (CALAN SR) extended release tablet 120 mg 120 mg oral Nightly Gilles Carter MD 120 mg at 10/19/232057 Laboratory Testing: No results found for: WBC , HGB , HCT , MCV , LABPLAT No results found for: GLUCOSE , CALCIUM , SODIUM , POTASSIUM , CO2 , CHLORIDE , BUNSER , CREATININE No results found for: ALT , AST , GGT , ALKPHOS , BILITOT Assessment Consuelo Darby is a 42 y.o. year old right-handed female with a history of history of migraines, R M1 stroke 2022 s/p MT (TICI 2b), HTN, GERD who was admitted to the EMU for clarification of the differential diagnosis. #Spell characterization Patient has a history of R M1 stroke which was complicated by malignant edema requiring hemicraniotomy. She was ppx put on keppra 500 mg BID for 6 months. 3 days after beginning taper plan, she had aspell. Semiology is not well characterized but reports her 2 spells generally characterized as L gaze preference, Right sided flaccidity lasting 15 minutes. Unclear if these are epileptic seizures, difficult to localize hemisphere with inconsistent signs, but does have risk factors (stroke, crani). This patient is hooked up to vEEG. There will be suction, oxygen and seizure safety precautions as this patient is at risk for status. AEDs will be weaned as needed to provoke events. Provocative measures such as PS, sleep deprivation and biking will be preformed as needed. This patient will be a full code with a regular diet. This plan of care was discussed with the EMU team and the patient. ThevEEG will be reviewed. 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 S/p MT TICI 2b. 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 Currently not ambulatory. Has significant pain with movement of L side. On flexeril, baclofen, and norco at home. -continue home aspirin -continue home pain medications #Migraines -continue verapamil -stop topamax #HTN -Continue metop 25 mg BID -continue verapamil 120 mg qHS #GERD -Protonix 40 mg qD #Mood disorder -continue home cymbalta, buspar -continue home atarax prn Marybeth Frederick MD Adult Neurology, PGY-4 Cosigned by Munir Waters MD PhD at 10/20/2023 1:56 PM CDT Associated attestation - Munir Waters MD PhD - 10/20/2023 1:56 PM CDT I have seen and examined the patient on 10/20/23. I agree with the findings and plan of care as documented in the resident's/fellow's note. I personally reviewed the patient's video-EEG in the last 24 hours, which was notable for left temporal and right parietal sharps. Plan: - continue video-EEG - off ASMs - activation procedures as needed: photic stim I discussed anti-seizure medications with the patient today. I discussed the plan with the patient today. * Munir Waters MD PhD - 10/19/2023 8:32 AM CDT Video-EEG Report Patient Name: Consuelo Darby [facility] Medical Record Number (MRN): [id number] [facility] Record: Radha Branham MRN Date of (): 1980 CC: Jaden Thakur Start Time: 09:56:25 AM 10/18/2023 End Time: 09:56:25 AM 10/19/2023 Introduction: Ms. Darby is a 42 y.o. female with a history of right MCA ischemic stroke s/p [place] (10/2022) and [facility] referred to EMU for characterization of spells concerning for seizures. EEG was performed to evaluate for further characterization of events and epileptiform abnormalities. This is a report of continuous video-EEG monitoring. High definition digital video and digital EEG were recorded continuously with a [employer] EEG acquisition system. This was a 32 channel EEG with additional anterior temporal electrodes. Electrodes were placed with collodion following the 10/20 International System. The patient was monitored and observed continuously by technical personnel. Digital seizure and spike detection were utilized during the recording. EEG description: The background was asymmetric with faster frequencies and higher amplitudes observed over the left hemisphere. The awake background included a 10 Hz posterior rhythm, better formed over the left hemisphere, which attenuated with eye opening and activity. During drowsiness, identified by ocular signs and alpha attenuation, there was intermittent, diffuse, asynchronous theta activity admixed with 2-4 Hz polymorphic frontotemporal delta activity. As the record progressed, stage II sleep was identified by vertex waves, sleep spindles and K- complexes. During the recording, there were changes consistent with light and deep sleep stages. Intermittent admixed polymorphic theta and delta was activity was occasionally observed over the left temporal region. Rare left temporal sharp waves (T7, F7, T7/F7) were observed. Rare right posterior quadrant sharp waves were also observed in the later part of the epoch (P8 > P4), and rarely formed a lateralizedperiodic pattern of up to 1.5 Hz. Epoch 4 : 09:56:25 AM 10/18/2023 to 09:56:25 AM 10/19/2023 Hyperventilation and photic strobe stimulation were not performed. Event #3 occurred at 16:44 PM on 10/18/2023 - Electrographically, the background showed a baseline awake pattern with no significant change from baseline. - Clinically, the patient was in bed awake with no obvious clinical changes. She initially reporteda feeling of stiffening in her right leg and then reported feeling it on the left side. She was able to follow commands and respond to questions by nursing staff with no noted abnormalities. Event #2 occurred at 18:41 PM on 10/18/2023 - Electrographically, the background showed a baseline awake pattern with no significant change from baseline - Clinically, the patient was in bed awake and reported a tightening feeling of her leg and hand on thel eft side, and then later reported soreness in her legs. She was able to follow commands and respond to questions by nursing staff with no noted abnormalities. Seizure #1 occurred at 03:13 AM on 10/19/2023 - Electrographically, the background showed a baseline asleep pattern (N3). Electrographic start occurred in the form of right posterior quadrant semi- rhythmic sharply contoured discharges between 1.5 - 2 Hz (P4 > P8; 03:13:57). There was a noted increase in rhythmicity to sharply contoured theta activity (03:14:30) with evolution in morphology to 2-3 Hz sharp waves and propagation throughout the right posterior quadrant (P4 >P8/O2) with continued evolution until electrographic stop (03:19:02). - Clinically, the patient was in bed asleep with no obvious clinical changes. Interpretation: This is an abnormal video-EEG recording due to 1) focal onset right posterior quadrant electrographic seizure 2) left temporal epileptiform discharges, 3) right posterior quadrant epileptiform discharges that rarely formed lateralized periodic discharges (LPDs), 4) left temporal focal slowing, and 5) lateralized right hemispheric slowing. Two clinical events were observed without clear electrocerebral correlate. Focal epileptiform discharges are typically seen in patients with a history of focal seizures. Focal slowing is indicative of focal cerebral dysfunction but is not specific for etiology. By signing this report, the attending Electroencephalographer certifies that he/she personally reviewed the electrodiagnostics study and has edited this report to fully conform with his/her intent. Signing Attending: Munir Waters MD PhD * Gilles Carter MD - 10/19/2023 7:56 AM CDT Patient Name: Consuelo Darby Date of (): 1980 Encounter Date: 10/12/2023 PCP: Jaden Thakur DO Provider: No name on file Consuelo Darby is a 42 y.o. year old right-handed female with a history of history of migraines, R M1 stroke 2022 s/p MT (TICI 2b), HTN, GERD who was admitted to the EMU for clarification of the differential diagnosis. Subjective Interval Events: No acute events overnight. VSS. She stayed awake until midnight. Patient had 2 events, but she reports these are not her typical spells. 1644: R side stiff, aware, able to answer questions/commands lasting a few seconds Stiffness on the LLE and L hand, able to follow commands and answer questions. Lasted a few seconds. She had an electrographic seizure in R PO region lasting 5-6 minutes overnight. There was no clinical correlate. Denied any headaches. cvEEG largely unchanged from yesterday, except L temporal discharges were better formed. No seizures or runs. R>L temporal slowing. Objective Physical Exam: Vitals: 10/19/23 0829 BP: 114/61 Pulse: 88 Resp: 18 Temp: 36.5 ??C (97.7 ??F) SpO2: 93% General: The patient appeared well developed, well nourished and well groomed. Extremities: No edema. No other abnormalities were noted. Skin: No abnormalities were noted. Neurological Exam: Mental Status: The patient was alert and oriented to self, person, and place. Followed simple commands. Decreased speech. Cranial Nerves: Pupils 3 mm b/l->2 mm, regular, and reactive to light and accommodation. Extraocular movements intact. Visual torres: L inferior quadranopsia. Symmetric to light touch in V1-V3 distributions bilaterally. L facial droop. Hearing symmetric to voice bilaterally. Palate elevates symme trically. Tongue protrudes midline. Motor: Bulk was normal. Tone was normal. Strength 5/5 on R, LUE 0/5, LLE 3/5. Significant pain withpassive range of motion of her L side. Sensation: The patient had normal sensation to light touch in all four extremities. Coordination: Finger to nose testing was normal bilaterally. Fine finger movements intact. Gait: Deferred for safety. Reflexes: Deferred. Current Facility-Administered Medications Medication Dose Route Frequency Provider Last Rate Last Admin acetaminophen (TYLENOL) tablet 650 mg 650 mg oral Q4H PRN Gilles Carter MD 650 mg at 10/19/23 0851 aspirin chewable tablet 81 mg 81 mg oral Daily Gilles Carter MD 81 mg at 10/19/23 0851 baclofen (LIORESAL) tablet 5 mg 5 mg oral Nightly Gilles Carter MD 5 mg at 10/18/232138 busPIRone (BUSPAR) tablet 5 mg 5 mg oral BID Gilels Carter MD 5 mg at 10/19/23 0851 Carrier Fluids for Secondary Infusion - 0.9% Sodium Chloride 30 mL intravenous PRN Rosa Pena NP cetirizine (ZyrTEC) tablet 10 mg 10 mg oral Nightly Gilles Carter MD 10 mg at 10/18/232138 cholecalciferol (VITAMIN D-3) capsule 2,000 Units 2,000 Units oral Daily Gilles Carter MD 2,000 Units at 10/19/23850 cyclobenzaprine (FLEXERIL) tablet 5 mg 5 mg oral TID Gilles Carter MD 5 mg at 10/19/[address] (CYMBALTA) extended release capsule 60 mg 60 mg oral Daily Gilles Carter MD 60 mg at 10/19/2351 HYDROcodone-acetaminophen (NORCO) 10-325 mg per tablet 1 tablet 1 tablet oral Q6H PRN iGlles Carter MD 1 tablet at 10/18/23 230 hydrOXYzine (VISTARIL) capsule 25 mg 25 mg oral TID PRN Gilles Carter MD [Held by Provider] levETIRAcetam (KEPPRA) tablet 1,000 mg 1,000 mg oral BID Gilles Carter MD metoprolol tartrate (LOPRESSOR) immediate release tablet 25 mg 25 mg oral BID Gilles Carter MD25 mg at 10/19/[address] (PROTONIX) extended release tablet 40 mg 40 mg oral Daily Gilles Carter MD 40 mg at 10/19/23850 polyethylene glycol (MIRALAX) packet 17 g 17 g oral Daily PRN Gilles Carter MD sodium chloride 0.9% flush 0.5-20 mL 0.5-20 mL intra-catheter Q8H [facility] Rosa Pena NP 10 mL at 10/19/23 0637 sodium chloride 0.9% flush 0.5-20 mL 0.5-20 mL intra-catheter PRN Rosa Pena NP [Held by Provider] topiramate (TOPAMAX) tablet 50 mg 50 mg oral BID Gilles Carter MD 50 mg at 10/16/23 0815 verapamil SR (CALAN SR) extended release tablet 120 mg 120 mg oral Nightly Gilles Carter MD 120 mg at 10/18/232138 Laboratory Testing: No results found for: WBC , HGB , HCT , MCV , LABPLAT No results found for: GLUCOSE , CALCIUM , SODIUM , POTASSIUM , CO2 , CHLORIDE , BUNSER , CREATININE No results found for: ALT , AST , GGT , ALKPHOS , BILITOT Assessment Consuelo Darby is a 42 y.o. year old right-handed female with a history of history of migraines, R M1 stroke 2022 s/p [place] (TICI 2b), HTN, GERD who was admitted to the EMU for clarification of the differential diagnosis. #Spell characterization Patient has a history of R M1 stroke which was complicated by malignant edema requiring hemicraniotomy. She was ppx put on keppra 500 mg BID for 6 months. 3 days after beginning taper plan, she had aspell. Semiology is not well characterized but reports her 2 spells generally characterized as L gaze preference, Right sided flaccidity lasting 15 minutes. Unclear if these are epileptic seizures, difficult to localize hemisphere with inconsistent signs, but does have risk factors (stroke, crani). This patient is hooked up to vEEG. There will be suction, oxygen and seizure safety precautions as this patient is at risk for status. AEDs will be weaned as needed to provoke events. Provocative measures such as PS, sleep deprivation and biking will be preformed as needed. This patient will be a full code with a regular diet. This plan of care was discussed with the EMU team and the patient. ThevEEG will be reviewed. 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 S/p [place] TICI 2b. 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 Currently not ambulatory. Has significant pain with movement of L side. On flexeril, baclofen, and norco at home. -continue home aspirin -continue home pain medications #Migraines -continue verapamil -stop topamax #HTN -Continue metop 25 mg BID -continue verapamil 120 mg qHS #GERD -Protonix 40 mg qD #Mood disorder -continue home cymbalta, buspar -continue home atarax prn Gilles Carter MD Adult Neurology, PGY-2 Cosigned by Munir Waters MD PhD at 10/19/2023 1:54 PM CDT Associated attestation - Munir Waters MD PhD - 10/19/2023 1:54 PM CDT I have seen and examined the patient on 10/19/23. I agree with the findings and plan of care as documented in the resident's/fellow's note. I personally reviewed the patient's video-EEG in the last 24 hours, which was notable for a right parieto-occipital electrographic seizure. Plan: - continue video-EEG - off ASMs - activation procedures as needed: sleep deprive I discussed anti-seizure medications with the patient today. I discussed the plan with the patient today. * Munir Waters MD PhD - 10/18/2023 12:31 PM CDT Video-EEG Report Patient Name: Consuelo Darby [facility] Medical Record Number (MRN): [id number] [facility] Record: Radha Branham MRN Date of (): 1980 CC: Jaden Thakur Start Time: 09:56:25 AM 10/17/2023 End Time: 09:56:25 AM 10/18/2023 Introduction: Ms. Darby is a 42 y.o. female with a history of right MCA ischemic stroke s/p [place] (10/2022) and [facility] referred to EMU for characterization of spells concerning for seizures. EEG was performed to evaluate for further characterization of events and epileptiform abnormalities. This is a report of continuous video-EEG monitoring. High definition digital video and digital EEG were recorded continuously with a [employer] EEG acquisition system. This was a 32 channel EEG with additional anterior temporal electrodes. Electrodes were placed with collodion following the 10/20 International System. The patient was monitored and observed continuously by technical personnel. Digital seizure and spike detection were utilized during the recording. EEG description: The background was asymmetric with faster frequencies and higher amplitudes observed over the left hemisphere. The awake background included a 10 Hz posterior rhythm, better formed over the left hemisphere, which attenuated with eye opening and activity. During drowsiness, identified by ocular signs and alpha attenuation, there was intermittent, diffuse, asynchronous theta activity admixed with 2-4 Hz polymorphic frontotemporal delta activity. As the record progressed, stage II sleep was identified by vertex waves, sleep spindles and K- complexes. During the recording, there were changes consistent with light and deep sleep stages. Intermittent admixed polymorphic theta and delta was activity was occasionally observed over the left temporal region. Rare left temporal sharp waves (T7, F7, T7/F7) were observed. Epoch 3 : 09:56:25 AM 10/17/2023 to 09:56:25 AM 10/18/2023 Photic strobe stimulation was performed and elicited no abnormalities. Hyperventilation was not performed. Event #1 occurred at 16:48 PM on 10/17/2023 - Electrographically, the background showed a baseline awake pattern with no significant change from baseline. - Clinically, the patient was in bed awake with no obvious clinical changes. She reported a feelingof stiffening in her left foot that went up to her arm and into her lower back area. She was ableto follow commands and respond to questions by nursing staff with no abnormality. Event #2 occurred at 17:18 PM on 10/17/2023 - Electrographically, the background showed a baseline awake pattern with no significant change from baseline - Clinically, the patient was in bed awake with a brief right finger twitch that was noted before the onset of the Event button press (17:18:37). She reported a similar feeling in her right thumb andleft leg as Event #1 and felt like her eyes were going back and forth. Interpretation: The noted atypical clinical events had no EEG correlate. This is an abnormal video-EEG recording due to 1) rare left temporal epileptiform discharges, 2) left temporal focal slowing, and 3) lateralized right hemispheric slowing. Focal epileptiform discharges are typically seen in patients with a history of focal seizures. Focal slowing is indicative of focal cerebral dysfunction but is not specific for etiology. By signing this report, the attending Electroencephalographer certifies that he/she personally reviewed the electrodiagnostics study and has edited this report to fully conform with his/her intent. Signing Attending: Munir Waters MD PhD * Gilles Carter MD - 10/18/2023 8:02 AM CDT Patient Name: Consuelo Darby Date of (): 1980 Encounter Date: 10/12/2023 PCP: Jaden Thakur DO Provider: No name on file Consuelo Darby is a 42 y.o. year old right-handed female with a history of history of migraines, R M1 stroke 2022 s/p MT (TICI 2b), HTN, GERD who was admitted to the EMU for clarification of the differential diagnosis. Subjective Interval Events: Yesterday, patient received photic and self sleep deprived until 2 am. No acute events overnight, VSS Patient pushed event button x2 yesterday, but these are not her typical spells. She has no memory of these events. Denied any headaches. cvEEG largely unchanged from yesterday, except L temporal discharges were better formed. No seizures or runs. R>L temporal slowing. Objective Physical Exam: Vitals: 10/18/23 0806 BP: 104/60 Pulse: 88 Resp: 18 Temp: 36.5 ??C (97.7 ??F) SpO2: 95% General: The patient appeared well developed, well nourished and well groomed. Extremities: No edema. No other abnormalities were noted. Skin: No abnormalities were noted. Neurological Exam: Mental Status: The patient was alert and oriented to self, person, and place. Followed simple commands. Decreased speech. Cranial Nerves: Pupils 3 mm b/l->2 mm, regular, and reactive to light and accommodation. Extraocular movements intact. Visual torres: L inferior quadranopsia. Symmetric to light touch in V1-V3 distributions bilaterally. L facial droop. Hearing symmetric to voice bilaterally. Palate elevates symme trically. Tongue protrudes midline. Motor: Bulk was normal. Tone was normal. Strength 5/5 on R, LUE 0/5, LLE 3/5. Significant pain withpassive range of motion of her L side. Sensation: The patient had normal sensation to light touch in all four extremities. Coordination: Finger to nose testing was normal bilaterally. Fine finger movements intact. Gait: Deferred for safety. Reflexes: Deferred. Current Facility-Administered Medications Medication Dose Route Frequency Provider Last Rate Last Admin acetaminophen (TYLENOL) tablet 650 mg 650 mg oral Q4H PRN Gilles Carter MD 650 mg at 10/17/232021 aspirin chewable tablet 81 mg 81 mg oral Daily Gilles Carter MD 81 mg at 10/18/23914 baclofen (LIORESAL) tablet 5 mg 5 mg oral Nightly Gilles Carter MD 5 mg at 10/17/232021 busPIRone (BUSPAR) tablet 5 mg 5 mg oral BID Gilles Carter MD 5 mg at 10/18/23914 Carrier Fluids for Secondary Infusion - 0.9% Sodium Chloride 30 mL intravenous PRN Rosa Pena, MARLI cetirizine (ZyrTEC) tablet 10 mg 10 mg oral Nightly Gilles Carter MD 10 mg at 10/17/232035 cholecalciferol (VITAMIN D-3) capsule 2,000 Units 2,000 Units oral Daily Gilles Carter MD 2,000 Units at 10/18/23914 cyclobenzaprine (FLEXERIL) tablet 5 mg 5 mg oral TID Gilles Carter MD 5 mg at 10/18/[address] (CYMBALTA) extended release capsule 60 mg 60 mg oral Daily Gilles Carter MD 60 mg at 10/18/23914 HYDROcodone-acetaminophen (NORCO) 10-325 mg per tablet 1 tablet 1 tablet oral Q6H PRN Gilles Carter MD 1 tablet at 10/17/232149 hydrOXYzine (VISTARIL) capsule 25 mg 25 mg oral TID PRN Gilles Carter MD [Held by Provider] levETIRAcetam (KEPPRA) tablet 1,000 mg 1,000 mg oral BID Gilles Carter MD metoprolol tartrate (LOPRESSOR) immediate release tablet 25 mg 25 mg oral BID Gilles Carter MD25 mg at 10/18/[address] (PROTONIX) extended release tablet 40 mg 40 mg oral Daily Gilles Carter MD 40 mg at 10/18/23915 polyethylene glycol (MIRALAX) packet 17 g 17 g oral Daily PRN Gilles Carter MD sodium chloride 0.9% flush 0.5-20 mL 0.5-20 mL intra-catheter Q8H [facility] Rosa Pena, MARLI 10 mL at 10/17/232035 sodium chloride 0.9% flush 0.5-20 mL 0.5-20 mL intra-catheter PRN Rosa Pena NP [Held by Provider] topiramate (TOPAMAX) tablet 50 mg 50 mg oral BID Gilles Carter MD 50 mg at 10/16/23814 verapamil SR (CALAN SR) extended release tablet 120 mg 120 mg oral Nightly Gilles Carter MD 120 mg at 10/17/232021 Laboratory Testing: No results found for: WBC , HGB , HCT , MCV , LABPLAT No results found for: GLUCOSE , CALCIUM , SODIUM , POTASSIUM , CO2 , CHLORIDE , BUNSER , CREATININE No results found for: ALT , AST , GGT , ALKPHOS , BILITOT Assessment Consuelo Darby is a 42 y.o. year old right-handed female with a history of history of migraines, R M1 stroke 2022 s/p [place] (TICI 2b), HTN, GERD who was admitted to the EMU for clarification of the differential diagnosis. #Spell characterization Patient has a history of R M1 stroke which was complicated by malignant edema requiring hemicraniotomy. She was ppx put on keppra 500 mg BID for 6 months. 3 days after beginning taper plan, she had aspell. Semiology is not well characterized but reports her 2 spells generally characterized as L gaze preference, Right sided flaccidity lasting 15 minutes. Unclear if these are epileptic seizures, difficult to localize hemisphere with inconsistent signs, but does have risk factors (stroke, crani). This patient is hooked up to vEEG. There will be suction, oxygen and seizure safety precautions as this patient is at risk for status. AEDs will be weaned as needed to provoke events. Provocative measures such as PS, sleep deprivation and biking will be preformed as needed. This patient will be a full code with a regular diet. This plan of care was discussed with the EMU team and the patient. ThevEEG will be reviewed. -Admit to EMU for vEEG monitoring -Sleep deprivation, HV, PS -ASM taper: Date Medication changes Provoking Factors (Sleep deprivation, Hyperventilation, Photic stimulation) 10/15/2023 Stopped keppra Sleep deprivation 10/16/23 Stop topamax Sleep deprivation 10/17/23 ---- PS, sleep deprivation 10/18/23 ---- Self Sleep deprivation #R M1 stroke s/p MT 10/2022 [employer] and slurred speech. S/p MT TICI 2b. 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 Currently not ambulatory. Has significant pain with movement of L side. On flexeril, baclofen, and norco at home. -continue home aspirin -continue home pain medications #Migraines -continue verapamil -stop topamax #HTN -Continue metop 25 mg BID -continue verapamil 120 mg qHS #GERD -Protonix 40 mg qD #Mood disorder -continue home cymbalta, buspar -continue home atarax prn Gilles Carter MD Adult Neurology, PGY-2 Cosigned by Munir Waters MD PhD at 10/18/2023 3:14 PM CDT Associated attestation - Munir Waters MD PhD - 10/18/2023 3:14 PM CDT I have seen and examined the patient on 10/18/23. I agree with the findings and plan of care as documented in the resident's/fellow's note. I personally reviewed the patient's video-EEG in the last 24 hours, which was notable for left temporal sharps and two atypical events of UE paresthesia without EEG correlate. Plan: - continue video-EEG - off ASMs - activation procedures as needed: sleep deprive as tolerated I discussed anti-seizure medications with the patient today. I discussed the plan with the patient today. * Munir Waters MD PhD - 10/17/2023 10:36 AM CDT Video-EEG Report Patient Name: Consuelo Darby [facility] Medical Record Number (MRN): [id number] [facility] Record: Radha Branham MRN Date of (): 1980 CC: Jaden Thakur Start Time: 09:56:25 AM 10/16/2023 End Time: 09:56:25 AM 10/17/2023 Introduction: Ms. Darby is a 42 y.o. female with a history of right MCA ischemic stroke s/p [place] (10/2022) and [facility] referred to EMU for characterization of spells concerning for seizures. EEG was performed to evaluate for further characterization of events and epileptiform abnormalities. This is a report of continuous video-EEG monitoring. High definition digital video and digital EEG were recorded continuously with a [employer] EEG acquisition system. This was a 32 channel EEG with additional anterior temporal electrodes. Electrodes were placed with collodion following the 10/20 International System. The patient was monitored and observed continuously by technical personnel. Digital seizure and spike detection were utilized during the recording. EEG description: The background was asymmetric with faster frequencies and higher amplitudes observed over the left hemisphere. The awake background included a 10 Hz posterior rhythm, better formed over the left hemisphere, which attenuated with eye opening and activity. During drowsiness, identified by ocular signs and alpha attenuation, there was intermittent, diffuse, asynchronous theta activity admixed with 2-4 Hz polymorphic frontotemporal delta activity. As the record progressed, stage II sleep was identified by vertex waves, sleep spindles and K- complexes. During the recording, there were changes consistent with light and deep sleep stages. Intermittent admixed polymorphic theta and delta was activity was occasionally observed over the left temporal region. Rare left temporal sharp waves (T7, F7, T7/F7) were observed. Epoch 2 : 09:56:25 AM 10/16/2023 to 09:56:25 AM 10/17/2023 There were no clinical events or seizures recorded Hyperventilation and photic strobe stimulation was not performed. Interpretation: This is an abnormal video-EEG recording due to 1) rare left temporal epileptiform discharges, 2) left temporal focal slowing, and 3) lateralized right hemispheric slowing. Focal epileptiform discharges are typically seen in patients with a history of focal seizures. Focal slowing is indicative of focal cerebral dysfunction but is not specific for etiology. By signing this report, the attending Electroencephalographer certifies that he/she personally reviewed the electrodiagnostics study and has edited this report to fully conform with his/her intent. Signing Attending: Munir Waters MD PhD * Gilles Carter MD - 10/17/2023 8:29 AM CDT Patient Name: Consuelo Darby Date of (): 1980 Encounter Date: 10/12/2023 PCP: Jaden Thakur DO Provider: No name on file Consuelo Darby is a 42 y.o. year old right-handed female with a history of history of migraines, R M1 stroke 2022 s/p [place] (TICI 2b), HTN, GERD who was admitted to the EMU for clarification of the differential diagnosis. Subjective Interval Events: Yesterday, stopped topamax and and planned for sleep deprived. Patient was able to stay awake untilAM No acute events overnight, VSS This morning, patient appears more awake and conversant. No spells overnight. Denied any headaches. cvEEG largely unchanged from yesterday, except L temporal discharges were better formed. No seizures or runs. R>L temporal slowing. Objective Physical Exam: Vitals: 10/17/23 0857 BP: 113/70 Pulse: 84 Resp: 16 Temp: 36.6 ??C (97.9 ??F) SpO2: 92% General: The patient appeared well developed, well nourished and well groomed. Extremities: No edema. No other abnormalities were noted. Skin: No abnormalities were noted. Neurological Exam: Mental Status: The patient was alert and oriented to self, person, and place. Followed simple commands. Decreased speech. Cranial Nerves: Pupils 3 mm b/l->2 mm, regular, and reactive to light and accommodation. Extraocular movements intact. Visual torres: L inferior quadranopsia. Symmetric to light touch in V1-V3 distributions bilaterally. L facial droop. Hearing symmetric to voice bilaterally. Palate elevates symme trically. Tongue protrudes midline. Motor: Bulk was normal. Tone was normal. Strength 5/5 on R, LUE 0/5, LLE 3/5. Significant pain withpassive range of motion of her L side. Sensation: The patient had normal sensation to light touch in all four extremities. Coordination: Finger to nose testing was normal bilaterally. Fine finger movements intact. Gait: Deferred for safety. Reflexes: Deferred. Current Facility-Administered Medications Medication Dose Route Frequency Provider Last Rate Last Admin acetaminophen (TYLENOL) tablet 650 mg 650 mg oral Q4H PRN Gilles Carter MD aspirin chewable tablet 81 mg 81 mg oral Daily Gilles Carter MD 81 mg at 10/17/23 0817 baclofen (LIORESAL) tablet 5 mg 5 mg oral Nightly Gilles Carter MD 5 mg at 10/16/23 2019 busPIRone (BUSPAR) tablet 5 mg 5 mg oral BID Gilles Carter MD 5 mg at 10/17/23 0818 Carrier Fluids for Secondary Infusion - 0.9% Sodium Chloride 30 mL intravenous PRN Rosa Pena [employer] cetirizine (ZyrTEC) tablet 10 mg 10 mg oral Nightly Gilles Carter MD 10 mg at 10/16/232018 cholecalciferol (VITAMIN D-3) capsule 2,000 Units 2,000 Units oral Daily Gilles Carter MD 2,000 Units at 10/17/23817 cyclobenzaprine (FLEXERIL) tablet 5 mg 5 mg oral TID Gilles Carter MD 5 mg at 10/17/23 08 DULoxetine (CYMBALTA) extended release capsule 60 mg 60 mg oral Daily Gilles Carter MD 60 mg at 10/17/23 08 HYDROcodone-acetaminophen (NORCO) 10-325 mg per tablet 1 tablet 1 tablet oral Q6H PRN Gilles Carter MD 1 tablet at 10/16/232149 hydrOXYzine (VISTARIL) capsule 25 mg 25 mg oral TID PRN Gilles Carter MD [Held by Provider] levETIRAcetam (KEPPRA) tablet 1,000 mg 1,000 mg oral BID Gilles Carter MD metoprolol tartrate (LOPRESSOR) immediate release tablet 25 mg 25 mg oral BID Gilles Carter MD25 mg at 10/17/23 08 pantoprazole (PROTONIX) extended release tablet 40 mg 40 mg oral Daily Gilles Carter MD 40 mg at 10/17/23817 polyethylene glycol (MIRALAX) packet 17 g 17 g oral Daily PRN Gilles Carter MD sodium chloride 0.9% flush 0.5-20 mL 0.5-20 mL intra-catheter Q8H [facility] Rosa Pena, MARLI 10 mL at 10/17/23 0604 sodium chloride 0.9% flush 0.5-20 mL 0.5-20 mL intra-catheter PRN Rosa Pena NP [Held by Provider] topiramate (TOPAMAX) tablet 50 mg 50 mg oral BID Gilles Carter MD 50 mg at 10/16/23 0815 verapamil SR (CALAN SR) extended release tablet 120 mg 120 mg oral Nightly Gilles Carter MD 120 mg at 10/16/232018 Laboratory Testing: No results found for: WBC , HGB , HCT , MCV , LABPLAT No results found for: GLUCOSE , CALCIUM , SODIUM , POTASSIUM , CO2 , CHLORIDE , BUNSER , CREATININE No results found for: ALT , AST , GGT , ALKPHOS , BILITOT Assessment Consuelo Darby is a 42 y.o. year old right-handed female with a history of history of migraines, R M1 stroke 2022 s/p MT (TICI 2b), HTN, GERD who was admitted to the EMU for clarification of the differential diagnosis. #Spell characterization Patient has a history of R M1 stroke which was complicated by malignant edema requiring hemicraniotomy. She was ppx put on keppra 500 mg BID for 6 months. 3 days after beginning taper plan, she had aspell. Semiology is not well characterized but reports her 2 spells generally characterized as L gaze preference, Right sided flaccidity lasting 15 minutes. Unclear if these are epileptic seizures, difficult to localize hemisphere with inconsistent signs, but does have risk factors (stroke, crani). This patient is hooked up to vEEG. There will be suction, oxygen and seizure safety precautions as this patient is at risk for status. AEDs will be weaned as needed to provoke events. Provocative measures such as PS, sleep deprivation and biking will be preformed as needed. This patient will be a full code with a regular diet. This plan of care was discussed with the EMU team and the patient. ThevEEG will be reviewed. 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 S/p MT TICI 2b. 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 Currently not ambulatory. Has significant pain with movement of L side. On flexeril, baclofen, and norco at home. -continue home aspirin -continue home pain medications #Migraines -continue verapamil -stop topamax #HTN -Continue metop 25 mg BID -continue verapamil 120 mg qHS #GERD -Protonix 40 mg qD #Mood disorder -continue home cymbalta, buspar -continue home atarax prn Gilles Carter MD Adult Neurology, PGY-2 Cosigned by Munir Waters MD PhD at 10/17/2023 3:33 PM CDT Associated attestation - Munir Waters MD PhD - 10/17/2023 3:33 PM CDT I have seen and examined the patient on 10/17/23. I agree with the findings and plan of care as documented in the resident's/fellow's note. I personally reviewed the patient's video-EEG in the last 24 hours, which was notable for left temporal sharps. Plan: - continue video-EEG - off ASMs - activation procedures as needed: photic stim I discussed anti-seizure medications with the patient today. I discussed the plan with the patient today. * Munir Waters MD PhD - 10/16/2023 11:04 AM CDT Video-EEG Report Patient Name: Consuelo Darby [facility] Medical Record Number (MRN): [id number] [facility] Record: Radha Branham MRN Date of (): 1980 CC: Jaden Thakur Start Time: 09:56:25 AM 10/15/2023 End Time: 09:56:25 AM 10/16/2023 Introduction: Ms. Darby is a 42 y.o. female with a history of right MCA ischemic stroke s/p [place] (10/2022) and [facility] referred to EMU for characterization of spells concerning for seizures. EEG was performed to evaluate for further characterization of events and epileptiform abnormalities. This is a report of continuous video-EEG monitoring. High definition digital video and digital EEG were recorded continuously with a [employer] EEG acquisition system. This was a 32 channel EEG with additional anterior temporal electrodes. Electrodes were placed with collodion following the 10/20 International System. The patient was monitored and observed continuously by technical personnel. Digital seizure and spike detection were utilized during the recording. EEG description: The background was asymmetric with faster frequencies and higher amplitudes observed over the left hemisphere. The awake background included a 10 Hz posterior rhythm, better formed over the left hemisphere, which attenuated with eye opening and activity. During drowsiness, identified by ocular signs and alpha attenuation, there was intermittent, diffuse, asynchronous theta activity admixed with 2-4 Hz polymorphic frontotemporal delta activity. As the record progressed, stage II sleep was identified by vertex waves, sleep spindles and K- complexes. During the recording, there were changes consistent with light and deep sleep stages. Intermittent admixed polymorphic theta and delta was activity was occasionally observed over the left temporal region. Occasional poorly formed left temporal sharp waves (F9, F7, T7/F7) were observed. Epoch 1 : 09:56:25 AM 10/15/2023 to 09:56:25 AM 10/16/2023 There were no clinical events or seizures recorded Hyperventilation and photic strobe stimulation was not performed. Interpretation: This is an abnormal epilepsy monitoring unit recording due to 1) occasional left temporal sharp transients concerning for focal epileptiform discharges, 2) left temporal focal slowing, and 3) lateralized right hemispheric slowing. Focal epileptiform discharges are typically seen in patients with a history of focal seizures. Focal slowing is indicative of focal cerebral dysfunction but is not specific for etiology. By signing this report, the attending Electroencephalographer certifies that he/she personally reviewed the electrodiagnostics study and has edited this report to fully conform with his/her intent. Signing Attending: Munir Waters MD PhD * Gilles Carter MD - 10/16/2023 7:50 AM CDT Patient Name: Consuelo Darby Date of (): 1980 Encounter Date: 10/12/2023 PCP: Jaden Thakur DO Provider: No name on file Consuelo Darby is a 42 y.o. year old right-handed female with a history of history of migraines, R M1 stroke 2022 s/p MT (TICI 2b), HTN, GERD who was admitted to the EMU for clarification of the differential diagnosis. Subjective Interval Events: Yesterday, stopped keppra and and planned for sleep deprived. Patient was unable to stay awake and reports she slept all day. Regarding the VPA and topamax. Patient was started on Topamax 09/24 with plans to wean off of VPA. They were told to stop VPA yesterday. notes his is slower to respond and has been moredependent since the initiation of Topamax and would like that medication discontinued, but this hasnot been discussed with Dr. Jaffe. No acute events overnight, VSS. She endorses a mild R frontal headache currently. Patient is requesting to stop topamax because d/t sedating and confusion side effects. cvEEG showed no seizures, but intermittent L temporal discharges. Objective Physical Exam: Vitals: 10/15/232044 BP: 110/52 Pulse: 60 Resp: 16 Temp: 36.6 ??C (97.9 ??F) SpO2: 97% General: The patient appeared well developed, well nourished and well groomed. Extremities: No edema. No other abnormalities were noted. Skin: No abnormalities were noted. Neurological Exam: Mental Status: The patient was alert and oriented to self, person, and place. Followed simple commands. Decreased speech. Cranial Nerves: Pupils 3 mm b/l->2 mm, regular, and reactive to light and accommodation. Extraocular movements intact. Visual torres: L inferior quadranopsia. Symmetric to light touch in V1-V3 distributions bilaterally. L facial droop. Hearing symmetric to voice bilaterally. Palate elevates symme trically. Tongue protrudes midline. Motor: Bulk was normal. Tone was normal. Strength 5/5 on R, LUE 0/5, LLE 3/5. Significant pain withpassive range of motion of her L side. Sensation: The patient had normal sensation to light touch in all four extremities. Coordination: Finger to nose testing was normal bilaterally. Fine finger movements intact. Gait: Deferred for safety. Reflexes: Deferred. Current Facility-Administered Medications Medication Dose Route Frequency Provider Last Rate Last Admin acetaminophen (TYLENOL) tablet 650 mg 650 mg oral Q4H PRN Gilles Carter MD aspirin chewable tablet 81 mg 81 mg oral Daily Gilles Carter MD 81 mg at 10/16/23 0815 baclofen (LIORESAL) tablet 5 mg 5 mg oral Nightly Gilles Carter MD busPIRone (BUSPAR) tablet 5 mg 5 mg oral BID Gilles Carter MD 5 mg at 10/16/23 0815 Carrier Fluids for Secondary Infusion - 0.9% Sodium Chloride 30 mL intravenous PRN Rosa Pena NP cetirizine (ZyrTEC) tablet 10 mg 10 mg oral Nightly Gilles Carter MD 10 mg at 10/15/232041 cholecalciferol (VITAMIN D-3) capsule 2,000 Units 2,000 Units oral Daily Gilles Carter MD 2,000 Units at 10/16/23 0815 cyclobenzaprine (FLEXERIL) tablet 5 mg 5 mg oral TID Gilles Carter MD 5 mg at 10/16/23 151 DULoxetine (CYMBALTA) extended release capsule 60 mg 60 mg oral Daily Gilles Carter MD 60 mg at 10/16/23 0815 HYDROcodone-acetaminophen (NORCO) 10-325 mg per tablet 1 tablet 1 tablet oral Q6H PRN Gilles Carter MD 1 tablet at 10/16/23 0833 hydrOXYzine (VISTARIL) capsule 25 mg 25 mg oral TID PRN Gilles Carter MD [Held by Provider] levETIRAcetam (KEPPRA) tablet 1,000 mg 1,000 mg oral BID Gilles Carter MD metoprolol tartrate (LOPRESSOR) immediate release tablet 25 mg 25 mg oral BID Gilles Carter MD25 mg at 10/16/23 0815 pantoprazole (PROTONIX) extended release tablet 40 mg 40 mg oral Daily Gilles Carter MD 40 mg at 10/16/23 0815 polyethylene glycol (MIRALAX) packet 17 g 17 g oral Daily PRN Gilles Carter MD sodium chloride 0.9% flush 0.5-20 mL 0.5-20 mL intra-catheter Q8H [facility] Rosa Pena, MARLI sodium chloride 0.9% flush 0.5-20 mL 0.5-20 mL intra-catheter PRN Rosa Pena, MARLI [Held by Provider] topiramate (TOPAMAX) tablet 50 mg 50 mg oral BID Gilles Carter MD 50 mg at 10/16/23 0815 verapamil SR (CALAN SR) extended release tablet 120 mg 120 mg oral Nightly Gilles Carter MD 120 mg at 10/15/232041 Laboratory Testing: No results found for: WBC , HGB , HCT , MCV , LABPLAT No results found for: GLUCOSE , CALCIUM , SODIUM , POTASSIUM , CO2 , CHLORIDE , BUNSER , CREATININE No results found for: ALT , AST , GGT , ALKPHOS , BILITOT Assessment Consuelo Darby is a 42 y.o. year old right-handed female with a history of history of migraines, R M1 stroke 2022 s/p MT (TICI 2b), HTN, GERD who was admitted to the EMU for clarification of the differential diagnosis. #Spell characterization Patient has a history of R M1 stroke which was complicated by malignant edema requiring hemicraniotomy. She was ppx put on keppra 500 mg BID for 6 months. 3 days after beginning taper plan, she had aspell. Semiology is not well characterized but reports her 2 spells generally characterized as L gaze preference, Right sided flaccidity lasting 15 minutes. Unclear if these are epileptic seizures, difficult to localize hemisphere with inconsistent signs, but does have risk factors (stroke, crani). This patient is hooked up to vEEG. There will be suction, oxygen and seizure safety precautions as this patient is at risk for status. AEDs will be weaned as needed to provoke events. Provocative measures such as PS, sleep deprivation and biking will be preformed as needed. This patient will be a full code with a regular diet. This plan of care was discussed with the EMU team and the patient. ThevEEG will be reviewed. 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 S/p MT TICI 2b. 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 Currently not ambulatory. Has significant pain with movement of L side. On flexeril, baclofen, and norco at home. -continue home aspirin -continue home pain medications #Migraines -continue verapamil -stop topamax #HTN -Continue metop 25 mg BID -continue verapamil 120 mg qHS #GERD -Protonix 40 mg qD #Mood disorder -continue home cymbalta, buspar -continue home atarax prn Gilles Carter MD Adult Neurology, PGY-2 Cosigned by Munir Waters MD PhD at 10/16/2023 3:49 PM CDT Associated attestation - Munir Waters MD PhD - 10/16/2023 3:49 PM CDT I have seen and examined the patient on 10/16/23. I agree with the findings and plan of care as documented in the resident's/fellow's note. I personally reviewed the patient's video-EEG in the last 24 hours, which was notable for left temporal sharp transients. Plan: - continue video-EEG - wean ASMs: d/c topiramate - activation procedures as needed: sleep deprive I discussed anti-seizure medications with the patient today. I discussed the plan with the patient today. documented in this encounter H&P Notes * Gilles Carter MD - 10/15/2023 8:01 AM CDT Patient Name: Consuelo Darby Date of (): 1980 PCP: Jaden Thakur DO Provider: No name on file Primary outpatient epileptologist: Dr. Jaffe Primary neurosurgeon (if applicable): HPI Consuelo Darby is a 42 y.o. year old right-handed female with a history of migraines, R M1 stroke 2022 s/p MT (TICI 2b), HTN, GERD who is being admitted to the EMU for clarification of the differential diagnosis. 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 She did not have any seizures during that stay, but was started on ppx keppra 500 mg BID after reimplantation of DHC which was recommended to continue for 3-6 months. Patient remained seizure free and she was slowing being weaned from Keppra on May 28, 2023 (taperplan: Keppra to 500 mg once daily for 3 weeks followed by 250 mg once daily for 3 weeks and then stop). On May 31, she had event while laying in bed. Prior to this event, she had a 5 day period where she was unable to get her meds. She is amnestic to this event, but her describes hearing slow rhythmic stomping sound while in the bathroom and was not responding to verbal stimuli. When hewent into the room, he found her to have L upward forced gaze preference, not responding, not tracking, and flaccid R arm/leg hanging off the bed. She was bubbling and drooling from her mouth with labored breathing from her lips turning blue. Upon arrival to the ED, she was confused but able totrack and answer questions. She was restarted on keppra 500 mg BID and discharged from the ED. She had no triggers prior to the spell. She mentioned having several headaches the weeks prior to this event, but did not think much of it because her elavil was stopped after her stroke. She was then referred to Dr. Jaffe who she first saw in June who recommended rEEG and depakote was added for seizure/headache management. 08/28, patient called to inform us she had another seizure. Described as sitting in the chair and talking on phone when she felt weakness in her hand and dropped the phone. She later felt her body stiffened followed by violent shaking of the extremities. This was an unwitnessed event and lasted for 15-20 minutes. There was no auras, bowel or bladder incontinence, oral trauma, or LOC. She was increased to keppra 1g BID. Starting 09/14, she had increasing daily headaches and followed up in clinic 09/24 at which point he recommended EMU admission for spell characterization and transitioned off VPA and began topamax. She has no known triggers and no prior history of seizures prior to her stroke. Of note, patient has a L shoulder teninopathy and tear of her labrum. She took all of her medications this morning prior to arriving. Per , he believes she has been become more slow and weak since initiation of topamax. VPA was planned to be tapered off this week. 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 Substance use: none Driving: not currently driving control: No Event #1 Type: Unclassified (FBTCS vs. NEE) [...] Incontinence:No Frequency: Single event Last event: 08/29/23 Past medical history: Past Medical History: Diagnosis Date Hypertension Seizure (HCC) Seizure disorder (CMS/HCC) (HCC) 09/25/2023 Stroke (HCC) Past surgical history: Past Surgical History: Procedure Laterality Date SECTION x2 HOME MEDICATIONS : aspirin 325 mg tablet baclofen (LIORESAL) 5 mg tablet busPIRone (BUSPAR) 5 mg tablet cetirizine 10 mg tablet,disintegrating cholecalciferol 25 mcg (1,000 unit) tablet cyclobenzaprine (FLEXERIL) [address] (DEPAKOTE) 250 mg EC tablet DULoxetine DR (CYMBALTA) 60 mg capsule HYDROcodone-acetaminophen (NORCO) 10-325 mg per tablet hydrOXYzine (VISTARIL) 25 mg capsule levETIRAcetam (KEPPRA) 1,000 mg tablet metoprolol tartrate (LOPRESSOR) 25 mg immediate release tablet pantoprazole DR (PROTONIX) 40 mg EC tablet polyethylene glycol (MIRALAX) 17 gram packet topiramate (TOPAMAX) 25 mg tablet verapamil SR (CALAN SR) 120 mg CR tablet Medications: Current Facility-Administered Medications Medication Dose Route Frequency Provider Last Rate Last Admin acetaminophen (TYLENOL) tablet 650 mg 650 mg oral Q4H PRN Gilles Carter MD Allergies: Allergies Allergen Reactions Latex Rash Vancomycin Other (See comments) High fevers Social history: Social History Tobacco Use Smoking status: Former Types: Cigarettes Smokeless tobacco: Never Substance and Sexual Activity Drug use: Not on file Sexual activity: Not on file Alcohol Use: Not At Risk (04/10/2019) Received from [facility] - [facility], [facility] - [facility] AUDIT-C Frequency of Alcohol Consumption: Monthly or less Average Number of Drinks: 1 or 2 Frequency of Binge Drinking: Never Family History Problem Relation Age of Onset Osteoporosis Other Blood Clot Other Prior Epilepsy Workup: # Neuroimaging -CT head (OSH, 11/19/2022): Right frontal craniectomy with extensive encephalomalacia involving theright frontal lobe as well as some involvement of the parietal and temporal lobes. -MRI brain (OSH, 11/09/2022): Right MCA territory acute ischemic CVA # EEG -rEEG: (06/25/2023) The EEG was abnormal due to right hemisphere slowing. Focal slowing indicates focal cerebral dysfunction. A structural or physiological abnormality should be considered. Results for orders placed or performed during the hospital encounter of 06/25/23 EEG Narrative Routine EEG Report Patient Name: Consuelo Darby [facility] Medical Record Number (MRN): [id number] [facility] Record: No Soarian MRN Date of (): 1980 EEG Date: 06/25/2023 Ordering Provider: Manuelito Venegas MD CC: Jaden Thakur Start Time: 06/25/2023 12:13:00 PM End Time: 06/25/2023 12:35:13 PM Introduction: Ms. Darby is a 42 y.o. female with a history of left hip pain, and stroke, presenting with seizure-like activity. EEG was performed to evaluate for seizures. This is a 32 channel EEG recording acquired on a [employer] EEG-1200 acquisition system. Scalp electrodes were placed according to the international 10-20 System. The analog EEG was filtered from 1-70 Hz and digitally sampled at 200 Hz. The record was then reformatted for review in bipolar and referential montages. EEG Description: The awake background included a 12 Hz posterior rhythm which attenuated with eye opening and activity, better formed over the left hemisphere. The background also included admixed theta and delta range activity over the right hemisphere. During drowsiness, identified by ocular signs and alpha attenuation, there was intermittent, diffuse, asynchronous theta activity admixed with 2-4 Hz polymorphic frontotemporal delta activity. Hyperventilation was not performed. Photic strobe stimulation elicited no abnormalities. There were no epileptiform abnormalities. Interpretation: The EEG was abnormal due to right hemisphere slowing. Focal slowing indicates focal cerebral dysfunction. A structural or physiological abnormality should be considered. By signing this report, the attending Electroencephalographer certifies that he/she personally reviewed the electrodiagnostics study and has edited this report to fully conform with his/her intent. Signing Attending: Daniel Rollins MD PhD Physical Exam: Vitals: 10/15/23 0740 BP: 106/57 Pulse: 74 Resp: 16 Temp: 36.6 ??C (97.9 ??F) SpO2: 96% General: The patient appeared well developed, well nourished and well groomed. HEENT: Normocephalic and atraumatic. Oropharynx was clear. Conjunctivae were clear. Moist mucus membranes. Cardiovascular: Regular rate and rhythm. Pulmonary: Symmetric rise and fall of chest wall. No accessory muscle usage observed. Clear to auscultation bilaterally. Extremities: No edema. Skin: No bruising or grossly visibly lesions. Neurological Exam: Mental Status: The patient was alert and oriented to self, person, and place. Followed simple commands. Decreased speech. Cranial Nerves: Pupils 3 mm b/l->2 mm, regular, and reactive to light and accommodation. Extraocular movements intact. Visual torres: L inferior quadranopsia. Symmetric to light touch in V1-V3 distributions bilaterally. L facial droop. Hearing symmetric to voice bilaterally. Palate elevates symme trically. Tongue protrudes midline. Motor: Bulk was normal. Tone was normal. Strength 5/5 on R, LUE 0/5, LLE 3/5. Significant pain withpassive range of motion of her L side. Sensation: The patient had normal sensation to light touch in all four extremities. Coordination: Finger to nose testing was normal bilaterally. Fine finger movements intact. Gait: Deferred for safety. Reflexes: Deferred. Labs: No results found for: WBC , HGB , HCT , MCV , LABPLAT No results found for: GLUCOSE , CALCIUM , SODIUM , POTASSIUM , CO2 , CHLORIDE , BUNSER , CREATININE No results found for: ALT , AST , GGT , ALKPHOS , BILITOT Assessment: Consuelo Darby is a 42 y.o. year old right-handed female with a history of migraines, R M1 stroke 2022 s/p MT (TICI 2b), HTN, GERD who is being admitted to the EMU for clarification of the differential diagnosis #Spell characterization Patient has a history of R M1 stroke which was complicated by malignant edema requiring hemicraniotomy. She was ppx put on keppra 500 mg BID for 6 months. 3 days after beginning taper plan, she had aspell. Semiology is not well characterized but reports her 2 spells generally characterized as L gaze preference, Right sided flaccidity lasting 15 minutes. Unclear if these are epileptic seizures, difficult to localize hemisphere with inconsistent signs, but does have risk factors (stroke, crani). This patient is hooked up to vEEG. There will be suction, oxygen and seizure safety precautions as this patient is at risk for status. AEDs will be weaned as needed to provoke events. Provocative measures such as PS, sleep deprivation and biking will be preformed as needed. This patient will be a full code with a regular diet. This plan of care was discussed with the EMU team and the patient. ThevEEG will be reviewed. 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 S/p MT TICI 2b. 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 Currently not ambulatory. Has significant pain with movement of L side. On flexeril, baclofen, and norco at home. -continue home aspirin -continue home pain medications #Migraines -continue home topamax, verapamil #HTN -Continue metop 25 mg BID -continue verapamil 120 mg qHS #GERD -Protonix 40 mg qD #Mood disorder -continue home cymbalta, buspar -continue home atarax prn Gilles Carter MD Adult Neurology, PGY-2 Cosigned by Munir Waters MD PhD at 10/15/2023 12:43 PM CDT Associated attestation - Munir Waters MD PhD - 10/15/2023 12:43 PM CDT I have seen and examined the patient on 10/15/23. I agree with the findings and plan of care as documented in the resident's/fellow's note. Plan: - video-EEG - wean ASMs: d/c levetiracetam, continue topiramate - activation procedures as needed: sleep deprive I reviewed prior records, including prior EEGs. I discussed anti-seizure medications with the patient today. I discussed the plan with the patient today. documented in this encounter Procedure Notes * Jennifer Kirby RN - 10/16/2023 4:49 PM CDT Vascular Access Nurse: Procedure Note Summary of treatment provided to patient today is as follows : . Vascular Access Documentation (Last 4 Hours) [facility] Additional Procedures Row Name 10/16/23 1645 Procedures Line Type Peripheral -LP Time in 1640 -LP Time out 1650 -LP Time Calculation (min) 10 min -LP Vascular Access Procedures Difficult IV start -LP Comfort Measures Position of comfort -LP Patient Response Tolerated (no change in status) -LP Notification Name of Person Notified Kyle -LP Role of Person Notified Nurse -LP Method of Communication Secure Chat -LP Notification Time 0 -LP Peripheral IV 10/16/23 22 G Anterior;Right Forearm IV Properties Placement Date: 10/16/23 -LP Placement Time: 1649 -LP Type: Angiocath -LP Length of Catheter: 1 in -LP Size (Gauge): 22 G -LP Location Orientation: Anterior;Right -LP Location: Forearm -LP Site Prep: Chlorhexidine - LP Comfort Measures: Position of comfort -LP Local Anesthetic: None -LP Technique: Anatomical landmarks -LP Verification: Able to advance catheter;Irrigates easily with normal saline;Able to cannulate vein;Blood Return -LP Inserted by: Michelle Hemphill RN -LP Insertionattempts: 1 -LP Patient Tolerance: Tolerated well -LP Site Assessment Clean and dry -LP IV Line Status Single Blood return noted;Capped Disinfectant;Flushes easily;Saline locked -LP Dressing Status New;Clean, dry, intact;Occlusive -LP Dressing Change Due 10/23/23 -LP User Fields (r) = Recorded By, (t) = Taken By, (c) = Cosigned By Initials Name LP Jennifer Kirby RN Plan: Follow up: Jennifer Kirby RN documented in this encounter Miscellaneous Notes * Provider Query - Gilles Carter MD - 10/21/2023 1:13 PM CDT Specify the word/phrase that represents the abbreviation MARKETING OPERATIONS ASSISTANT documented in the progress note: Additional Provider Response: Left sided weakness Clinical Indicators/Treatments: 42 y.o. year old right-handed female with a history of history of migraines, R M1 stroke 2022 s/p MT (TICI 2b), HTN, GERD who was admitted to the EMU for clarification of the differential diagnosis. 10/20 PN: Strength 5/5 on R, LUE 0/5, LLE 3/5. Significant pain with passive range of motion of her L side. 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 S/p MT TICI 2b. 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 Currently not ambulatory. Has significant pain with movement of L side. On flexeril, baclofen, and norco at home. -continue home aspirin -continue home pain medications References: From the ICD-10-CM Coding Guidelines, use of terms such as likely, suspected, possible, or probable(associated with a specific diagnosis that is being evaluated, monitored, or treated as if it exists) are acceptable and can be coded in the inpatient setting when documented at the time of discharge. This documentation will become part of the patient???s medical record. Sincerely, BRITT Ferrera, RN, CCDS Clinical Billing Control Clerk [facility] Phone: [facility] email: [email or web address] * Plan of Care - Bela Pina - 10/20/2023 6:40 PM CDT Problem: Skin Integrity Impairment Risk Goal: Mobility will improve Outcome: Ongoing Goal: Understanding of ways to prevent future skin breakdown will improve Outcome: Ongoing Goal: Nutritional status will improve Outcome: Ongoing Goal: Risk for impaired skin integrity will decrease Outcome: Ongoing Problem: Respiratory Goal: Achieves optimal ventilation and oxygenation Outcome: Ongoing Goal: Ability to maintain a clear airway will improve Outcome: Ongoing Goal: Mechanical Ventilation will be safely managed Outcome: Ongoing * Plan of Care - Ailyn Willis RN - 10/19/2023 10:50 PM CDT Problem: Skin Integrity Impairment Risk Goal: Mobility will improve 10/19/20232250 by Ailyn Willis RN Outcome: Progressing Problem: Skin Integrity Impairment Risk Goal: Understanding of ways to prevent future skin breakdown will improve 10/19/20232250 by Ailyn Willis RN Outcome: Progressing Problem: Neurosensory Goal: Remains free of injury related to seizures activity 10/19/20232250 by Ailyn Willis RN Outcome: Progressing Problem: Neurosensory Goal: Achieves maximal functionality and self care Outcome: Progressing Problem: Skin/Tissue Integrity Goal: Skin integrity remains intact 10/19/20232249 by Ailyn Willis RN Outcome: Progressing * Plan of Silver[place] - Gudelia Pack RN - 10/19/2023 2:50 PM CDT Problem: Skin Integrity Impairment Risk Goal: Mobility will improve Outcome: Progressing Goal: Nutritional status will improve Outcome: Progressing Problem: Neurosensory Goal: Remains free of injury related to seizures activity Outcome: Progressing Problem: Respiratory Goal: Achieves optimal ventilation and oxygenation Outcome: Progressing Problem: Skin/Tissue Integrity Goal: Skin integrity remains intact Outcome: Progressing Problem: Musculoskeletal Goal: Return ADL status to a safe level of function Outcome: Progressing Problem: Gastrointestinal Goal: Minimal or absence of nausea and vomiting Outcome: Progressing Problem: Hematologic Goal: Maintains hematologic stability Outcome: Progressing Problem: Lack of Knowledge Goal: Ability to develop a pain control plan will improve Outcome: Progressing Problem: Coping Goal: Ability to cope will improve Outcome: Progressing * Plan of Silverio - Caron Colmenares - 10/19/2023 3:19 AM CDT Goals: Summary: Problem: Discharge Planning Goal: Understanding discharge needs will improve Outcome: Ongoing Problem: Skin Integrity Impairment Risk Goal: Mobility will improve Outcome: Ongoing Goal: Understanding of ways to prevent future skin breakdown will improve Outcome: Ongoing Goal: Nutritional status will improve Outcome: Ongoing Goal: Risk for impaired skin integrity will decrease Outcome: Ongoing Problem: Neurosensory Goal: Remains free of injury related to seizures activity Outcome: Ongoing Goal: Achieves maximal functionality and self care Outcome: Ongoing Goal: Ability to maintain intracranial pressure will improve Outcome: Ongoing Problem: Respiratory Goal: Achieves optimal ventilation and oxygenation Outcome: Ongoing Goal: Ability to maintain a clear airway will improve Outcome: Ongoing Goal: Mechanical Ventilation will be safely managed Outcome: Ongoing Problem: Skin/Tissue Integrity Goal: Skin integrity remains intact Outcome: Ongoing Goal: Incisions, wounds, or drain sites healing without S/S of infection Outcome: Ongoing Goal: Oral mucous membranes remain intact Description: Outcome: Ongoing Problem: Musculoskeletal Goal: Return mobility to safest level of function Outcome: Ongoing Goal: Maintain proper alignment of affected body part Outcome: Ongoing Goal: Return ADL status to a safe level of function Outcome: Ongoing Goal: Ability to perform activities at highest level will improve Outcome: Ongoing Goal: Mobility, ROM and muscle strength will improve Outcome: Ongoing Problem: Gastrointestinal Goal: Minimal or absence of nausea and vomiting Outcome: Ongoing Goal: Maintains or returns to baseline bowel function Outcome: Ongoing Goal: Maintains adequate nutritional intake Outcome: Ongoing Problem: Infection Goal: Absence of infection during hospitalization Outcome: Ongoing Problem: Metabolic/Fluid and Electrolytes Goal: Electrolytes maintained within normal limits Outcome: Ongoing Problem: Hematologic Goal: Maintains hematologic stability Outcome: Ongoing Problem: Lack of Knowledge Goal: Ability to develop a pain control plan will improve Outcome: Ongoing Problem: Medication Goal: Satisfaction with pain management medication regimen will improve Outcome: Ongoing Problem: Sensory Goal: Ability to identify factors that increase pain levels will improve while working to decrease the patient's pain levels Outcome: Ongoing Problem: Coping Goal: Ability to cope will improve Outcome: Ongoing Problem: Health Behavior Goal: Identification of resources available to assist in meeting health care needs will improve Outcome: Ongoing * Plan of [place] - Gudelia Pack RN - 10/18/2023 3:41 PM CDT Problem: Skin Integrity Impairment Risk Goal: Mobility will improve Outcome: Progressing Goal: Understanding of ways to prevent future skin breakdown will improve Outcome: Progressing Goal: Nutritional status will improve Outcome: Progressing Problem: Neurosensory Goal: Remains free of injury related to seizures activity Outcome: Progressing Problem: Respiratory Goal: Achieves optimal ventilation and oxygenation Outcome: Progressing Problem: Skin/Tissue Integrity Goal: Skin integrity remains intact Outcome: Progressing Goal: Oral mucous membranes remain intact Description: Outcome: Progressing Problem: Infection Goal: Absence of infection during hospitalization Outcome: Progressing Problem: Hematologic Goal: Maintains hematologic stability Outcome: Progressing Problem: Coping Goal: Ability to cope will improve Outcome: Progressing * Hospital Course - Gilles Carter MD - 10/17/2023 10:29 AM CDT 10/2022, patient had sudden on [employer] subsequently found to 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 She was placed on keppra for sz ppx. May 2023, she began weaning off keppra and had an event. Her event is not well characterized, but appears she had R sided flaccidity and forced L eye gaze, but not witnessed. She was then referred to Dr. Jaffe for possible seizures. 08/28, patient called to inform us she had another seizure. Described as sitting in the chair and talking on phone when she felt weakness in her hand and dropped the phone. She later felt her body stiffened followed by violent shaking of the extremities. This was an unwitnessed event and lasted for 15-20 minutes. There was no auras, bowel or bladder incontinence, oral trauma, or LOC. She was incr eased to keppra 1g BID. Starting 09/14, she had increasing daily headaches and followed up in clinic 09/24 at which point he recommended EMU admission for spell characterization and transitioned off VPAand began topamax. she was admitted under the care of Dr. Waters. she was placed on seizure precautions and continuously monitored on Video-EEG. her anti-seizure medications (ASMs) were changed as necessary to try tocapture her events. Provocative procedures such as photic stimulation, hyperventilation, sleep depri vation, and physical exhaustion from riding an exercise bike were used as necessary to try to capture her events. her typical events {Blank single:[id number]:: were , were not } captured during the admission. Please see final Video EEG report for full details. she was discharged to home in stable condition. Discharge ASMs: keppra 1 g BID Discharge testing: No additional testing required at this time. Repeat Video-EEG may be required tocharacterize any persistent, worsening, or new events concerning for seizures. Follow-up: * Plan of Care - Kyle Jackman RN - 10/17/2023 9:50 AM CDT Problem: Discharge Planning Goal: Understanding discharge needs will improve Outcome: Progressing Problem: Skin Integrity Impairment Risk Goal: Mobility will improve Outcome: Progressing Goal: Understanding of ways to prevent future skin breakdown will improve Outcome: Progressing Goal: Nutritional status will improve Outcome: Progressing Goal: Risk for impaired skin integrity will decrease Outcome: Progressing Problem: Neurosensory Goal: Remains free of injury related to seizures activity Outcome: Progressing Goal: Achieves maximal functionality and self care Outcome: Progressing Goal: Ability to maintain intracranial pressure will improve Outcome: Progressing Problem: Respiratory Goal: Achieves optimal ventilation and oxygenation Outcome: Progressing Goal: Ability to maintain a clear airway will improve Outcome: Progressing Goal: Mechanical Ventilation will be safely managed Outcome: Progressing Problem: Skin/Tissue Integrity Goal: Skin integrity remains intact Outcome: Progressing Goal: Incisions, wounds, or drain sites healing without S/S of infection Outcome: Progressing Goal: Oral mucous membranes remain intact Description: Outcome: Progressing Problem: Musculoskeletal Goal: Return mobility to safest level of function Outcome: Progressing Goal: Maintain proper alignment of affected body part Outcome: Progressing Goal: Return ADL status to a safe level of function Outcome: Progressing Goal: Ability to perform activities at highest level will improve Outcome: Progressing Goal: Mobility, ROM and muscle strength will improve Outcome: Progressing Problem: Gastrointestinal Goal: Minimal or absence of nausea and vomiting Outcome: Progressing Goal: Maintains or returns to baseline bowel function Outcome: Progressing Goal: Maintains adequate nutritional intake Outcome: Progressing Problem: Infection Goal: Absence of infection during hospitalization Outcome: Progressing Problem: Metabolic/Fluid and Electrolytes Goal: Electrolytes maintained within normal limits Outcome: Progressing Problem: Hematologic Goal: Maintains hematologic stability Outcome: Progressing Problem: Lack of Knowledge Goal: Ability to develop a pain control plan will improve Outcome: Progressing Problem: Medication Goal: Satisfaction with pain management medication regimen will improve Outcome: Progressing Problem: Sensory Goal: Ability to identify factors that increase pain levels will improve while working to decrease the patient's pain levels Outcome: Progressing Problem: Coping Goal: Ability to cope will improve Outcome: Progressing Problem: Health Behavior Goal: Identification of resources available to assist in meeting health care needs will improve Outcome: Progressing * Plan of [place] - Caron Colmenares - 10/17/2023 1:59 AM CDT Problem: Discharge Planning Goal: Understanding discharge needs will improve Outcome: Ongoing Problem: Skin Integrity Impairment Risk Goal: Mobility will improve Outcome: Ongoing Goal: Understanding of ways to prevent future skin breakdown will improve Outcome: Ongoing Goal: Nutritional status will improve Outcome: Ongoing Goal: Risk for impaired skin integrity will decrease Outcome: Ongoing Problem: Neurosensory Goal: Remains free of injury related to seizures activity Outcome: Ongoing Goal: Achieves maximal functionality and self care Outcome: Ongoing Goal: Ability to maintain intracranial pressure will improve Outcome: Ongoing Problem: Respiratory Goal: Achieves optimal ventilation and oxygenation Outcome: Ongoing Goal: Ability to maintain a clear airway will improve Outcome: Ongoing Goal: Mechanical Ventilation will be safely managed Outcome: Ongoing Problem: Skin/Tissue Integrity Goal: Skin integrity remains intact Outcome: Ongoing Goal: Incisions, wounds, or drain sites healing without S/S of infection Outcome: Ongoing Goal: Oral mucous membranes remain intact Description: Outcome: Ongoing Problem: Musculoskeletal Goal: Return mobility to safest level of function Outcome: Ongoing Goal: Maintain proper alignment of affected body part Outcome: Ongoing Goal: Return ADL status to a safe level of function Outcome: Ongoing Goal: Ability to perform activities at highest level will improve Outcome: Ongoing Goal: Mobility, ROM and muscle strength will improve Outcome: Ongoing Problem: Gastrointestinal Goal: Minimal or absence of nausea and vomiting Outcome: Ongoing Goal: Maintains or returns to baseline bowel function Outcome: Ongoing Goal: Maintains adequate nutritional intake Outcome: Ongoing Problem: Infection Goal: Absence of infection during hospitalization Outcome: Ongoing Problem: Metabolic/Fluid and Electrolytes Goal: Electrolytes maintained within normal limits Outcome: Ongoing Problem: Hematologic Goal: Maintains hematologic stability Outcome: Ongoing Problem: Lack of Knowledge Goal: Ability to develop a pain control plan will improve Outcome: Ongoing Problem: Medication Goal: Satisfaction with pain management medication regimen will improve Outcome: Ongoing Problem: Sensory Goal: Ability to identify factors that increase pain levels will improve while working to decrease the patient's pain levels Outcome: Ongoing Problem: Coping Goal: Ability to cope will improve Outcome: Ongoing Problem: Health Behavior Goal: Identification of resources available to assist in meeting health care needs will improve Outcome: Ongoing Goals: Summary: * Initial Assessments - Arlyn Wylie RN - 10/16/2023 4:10 PM CDT CM Initial Assessment Interview Note Information Obtained From: Patient (10/16/231607) Admission Source: From Home Impression: Pt is a 42 year old male admitted for continuous EEG monitoring Plan Includes: CM anticipates following for discharge planning needs Primary Source of Transportation: Does the patient need discharge transport arranged?: No (10/16/23 1609) Health Insurance Coverage: Cigna Prescription Coverage: Yes Pharmacy: [id number] [place], [place] - [facility] [address] [facility] [id number] Primary Care Provider: Jaden Thakur DO, verified Prior to Admission: Functional Status: Minimal assist with ADLs Primary Caregiver: Self Support System: Spouse/Significant Other Home Care Services: No Outpatient Services: No Durable Medical Equipment: Wheelchair Living Arrangements: Spouse/significant other Type of Residence: Private residence Steps in home?: No steps inside or outside Medication management: Independent (10/16/23 160) Potential discharge needs include: Home Health: None (10/16/23 1608) Anticipated Level of Care: Anticipated discharge level of care: Private residence (10/16/23 160) Patient expects to be Discharged to: Private residence, (10/16/23 160) Additional Information: CM verified demographic information with patient. Role of CM explained. Patient's Identified Problem/Goal Problem: Ensure acute medical needs are met and that patient has a safe discharge plan. Goal: Secure a discharge plan that patient/family are agreeable with and ensure patient has continuum of care. Case management will follow for discharge planning and send referrals as needed. Goals include: To assure continuity of care, To maximize coping skills, To assure patient is in a safe environment and To assure access to community resources. Plan includes: 1. Collaboration with Patient, Provider, Direct Care Nurse, Sanitation Associate, and other members of theHealth Care Team to assure needed interventions completed. 2. Return patient to optimal level of self-care post discharge. 3. Ekg Monitor will follow for Discharge Planning - interventions as needed 4. Anticipated level of care at discharge 5. Planned Discharge Disposition Arlyn Wylie RN Case Manager * Plan of Care - Kyle Jackman RN - 10/16/2023 2:10 PM CDT Problem: Discharge Planning Goal: Understanding discharge needs will improve Outcome: Progressing Problem: Skin Integrity Impairment Risk Goal: Mobility will improve Outcome: Progressing Goal: Understanding of ways to prevent future skin breakdown will improve Outcome: Progressing Goal: Nutritional status will improve Outcome: Progressing Goal: Risk for impaired skin integrity will decrease Outcome: Progressing Problem: Neurosensory Goal: Remains free of injury related to seizures activity Outcome: Progressing Goal: Achieves maximal functionality and self care Outcome: Progressing Goal: Ability to maintain intracranial pressure will improve Outcome: Progressing Problem: Respiratory Goal: Achieves optimal ventilation and oxygenation Outcome: Progressing Goal: Ability to maintain a clear airway will improve Outcome: Progressing Goal: Mechanical Ventilation will be safely managed Outcome: Progressing Problem: Skin/Tissue Integrity Goal: Skin integrity remains intact Outcome: Progressing Goal: Incisions, wounds, or drain sites healing without S/S of infection Outcome: Progressing Goal: Oral mucous membranes remain intact Description: Outcome: Progressing Problem: Musculoskeletal Goal: Return mobility to safest level of function Outcome: Progressing Goal: Maintain proper alignment of affected body part Outcome: Progressing Goal: Return ADL status to a safe level of function Outcome: Progressing Goal: Ability to perform activities at highest level will improve Outcome: Progressing Goal: Mobility, ROM and muscle strength will improve Outcome: Progressing Problem: Gastrointestinal Goal: Minimal or absence of nausea and vomiting Outcome: Progressing Goal: Maintains or returns to baseline bowel function Outcome: Progressing Goal: Maintains adequate nutritional intake Outcome: Progressing Problem: Infection Goal: Absence of infection during hospitalization Outcome: Progressing Problem: Metabolic/Fluid and Electrolytes Goal: Electrolytes maintained within normal limits Outcome: Progressing Problem: Hematologic Goal: Maintains hematologic stability Outcome: Progressing Problem: Lack of Knowledge Goal: Ability to develop a pain control plan will improve Outcome: Progressing Problem: Medication Goal: Satisfaction with pain management medication regimen will improve Outcome: Progressing Problem: Sensory Goal: Ability to identify factors that increase pain levels will improve while working to decrease the patient's pain levels Outcome: Progressing Problem: Coping Goal: Ability to cope will improve Outcome: Progressing Problem: Health Behavior Goal: Identification of resources available to assist in meeting health care needs will improve Outcome: Progressing * Plan of Care - Caron Colmenares - 10/16/2023 4:27 AM CDT Problem: Discharge Planning Goal: Understanding discharge needs will improve Outcome: Ongoing Problem: Skin Integrity Impairment Risk Goal: Mobility will improve Outcome: Ongoing Goal: Understanding of ways to prevent future skin breakdown will improve Outcome: Ongoing Goal: Nutritional status will improve Outcome: Ongoing Goal: Risk for impaired skin integrity will decrease Outcome: Ongoing Problem: Neurosensory Goal: Remains free of injury related to seizures activity Outcome: Ongoing Goal: Achieves maximal functionality and self care Outcome: Ongoing Goal: Ability to maintain intracranial pressure will improve Outcome: Ongoing Problem: Respiratory Goal: Achieves optimal ventilation and oxygenation Outcome: Ongoing Goal: Ability to maintain a clear airway will improve Outcome: Ongoing Goal: Mechanical Ventilation will be safely managed Outcome: Ongoing Problem: Skin/Tissue Integrity Goal: Skin integrity remains intact Outcome: Ongoing Goal: Incisions, wounds, or drain sites healing without S/S of infection Outcome: Ongoing Goal: Oral mucous membranes remain intact Description: Outcome: Ongoing Problem: Musculoskeletal Goal: Return mobility to safest level of function Outcome: Ongoing Goal: Maintain proper alignment of affected body part Outcome: Ongoing Goal: Return ADL status to a safe level of function Outcome: Ongoing Goal: Ability to perform activities at highest level will improve Outcome: Ongoing Goal: Mobility, ROM and muscle strength will improve Outcome: Ongoing Problem: Gastrointestinal Goal: Minimal or absence of nausea and vomiting Outcome: Ongoing Goal: Maintains or returns to baseline bowel function Outcome: Ongoing Goal: Maintains adequate nutritional intake Outcome: Ongoing Problem: Infection Goal: Absence of infection during hospitalization Outcome: Ongoing Problem: Metabolic/Fluid and Electrolytes Goal: Electrolytes maintained within normal limits Outcome: Ongoing Problem: Hematologic Goal: Maintains hematologic stability Outcome: Ongoing Problem: Lack of Knowledge Goal: Ability to develop a pain control plan will improve Outcome: Ongoing Problem: Medication Goal: Satisfaction with pain management medication regimen will improve Outcome: Ongoing Problem: Sensory Goal: Ability to identify factors that increase pain levels will improve while working to decrease the patient's pain levels Outcome: Ongoing Problem: Coping Goal: Ability to cope will improve Outcome: Ongoing Problem: Health Behavior Goal: Identification of resources available to assist in meeting health care needs will improve Outcome: Ongoing Goals: Summary: * Plan of [place] - Anusha Greene RN - 10/15/2023 1:03 PM CDT Omar pt to unit and run through test code teal. Make sure pt understands importance of using the call light when she needs to get up. Problem: Discharge Planning Goal: Understanding discharge needs will improve Outcome: Progressing Problem: Skin Integrity Impairment Risk Goal: Mobility will improve Outcome: Progressing Goal: Understanding of ways to prevent future skin breakdown will improve Outcome: Progressing Goal: Nutritional status will improve Outcome: Progressing Goal: Risk for impaired skin integrity will decrease Outcome: Progressing Problem: Neurosensory Goal: Remains free of injury related to seizures activity Outcome: Progressing Goal: Achieves maximal functionality and self care Outcome: Progressing Goal: Ability to maintain intracranial pressure will improve Outcome: Progressing Problem: Respiratory Goal: Achieves optimal ventilation and oxygenation Outcome: Progressing Goal: Ability to maintain a clear airway will improve Outcome: Progressing Goal: Mechanical Ventilation will be safely managed Outcome: Progressing Problem: Skin/Tissue Integrity Goal: Skin integrity remains intact Outcome: Progressing Goal: Incisions, wounds, or drain sites healing without S/S of infection Outcome: Progressing Goal: Oral mucous membranes remain intact Description: Outcome: Progressing Problem: Musculoskeletal Goal: Return mobility to safest level of function Outcome: Progressing Goal: Maintain proper alignment of affected body part Outcome: Progressing Goal: Return ADL status to a safe level of function Outcome: Progressing Goal: Ability to perform activities at highest level will improve Outcome: Progressing Goal: Mobility, ROM and muscle strength will improve Outcome: Progressing Problem: Gastrointestinal Goal: Minimal or absence of nausea and vomiting Outcome: Progressing Goal: Maintains or returns to baseline bowel function Outcome: Progressing Goal: Maintains adequate nutritional intake Outcome: Progressing Problem: Infection Goal: Absence of infection during hospitalization Outcome: Progressing Problem: Metabolic/Fluid and Electrolytes Goal: Electrolytes maintained within normal limits Outcome: Progressing Problem: Hematologic Goal: Maintains hematologic stability Outcome: Progressing documented in this encounter Plan of Treatment Pending Results Name Type Priority Associated Diagnoses Date /Time Photic Stimulation with EEG Neurology Routine 10/17/2023 5:57 PM CDT Scheduled Orders Name Type Priority Associated Diagnoses Orde r Schedule Photic Stimulation with EEG Neurology Routine Once for 1 Occur rences starting 10/17/2023 until 10/17/2023 Photic Stimulation with EEG Neurology Routine Once for 1 Occur rences starting 10/20/2023 until 10/20/2023 Stop Continuous EEG - Inform EEG department Neurology Routine Once for 1 Occurrences starting 10/21/2023 until 10/21/2023 documented as of this encounter Visit Diagnoses Diagnosis Seizure (HCC)- Primary Other convulsions documented in this encounter Admitting Diagnoses Diagnosis Seizure (HCC) Other convulsions documented in this encounter Administered Medications Inactive Administered Medications - up to 3 most recent administrations Medication Order MAR Action Action Date Dose Rate Site acetaminophen (TYLENOL) tablet 650 mg 650 mg, oral, Every 4 hours PRN, 1st line for pain, fever, fever greater than 38.3 C, Starting on Sun10/15/23 at 0804, Indications: Fever, PainIndications:Fever,Pain Given 10/20/2023 8:52 PM CDT 650 mg Given 10/20/2023 3:11 PM CDT 650 mg Given 10/19/2023 9:05 PM CDT 650 mg aspirin chewable tablet 81 mg 81 mg, oral, Daily, First dose (after last modification) on Sun10/16/23 at 0900 Given 10/21/2023 7:55 AM CDT 81 mg Given 10/20/2023 10:15 AM CDT 81 mg Given 10/19/2023 8:51 AM CDT 81 mg baclofen (LIORESAL) tablet 5 mg 5 mg, oral, Nightly, First dose (after last modification) on Sun10/16/23 at 2100 Given 10/20/2023 8:53 PM CDT 5 mg Given 10/19/2023 8:59 PM CDT 5 mg Given 10/18/2023 9:39 PM CDT 5 mg busPIRone (BUSPAR) tablet 5 mg 5 mg, oral, 2 times daily, First dose (after last modification) on Sun10/15/23 at 2100 Given 10/21/2023 7:56 AM CDT 5 m g Given 10/20/2023 8:53 PM CDT 5 mg Given 10/20/2023 9:00 AM CDT 5 mg Carrier Fluids for Secondary Infusion - 0.9% Sodium Chloride 30 mL, intravenous, As needed, For priming tubing and/or flushing, Starting on Sun10/16/23 at 1141, 0-250 ml/hr to flush line after IV infusions when no maintenance IV ordered. Infuse 30mL at the same rate as the secondary infusion. Run as primary IV, not intended for KVO. cetirizine (ZyrTEC) tablet 10 mg 10 mg, oral, Nightly, First dose on Sun10/15/23 at 2100 Given 10/20/2023 8:52 PM CDT 10 mg Given 10/19/2023 8:59 PM CDT 10 mg Given 10/18/2023 9:39 PM CDT 10 mg cholecalciferol (VITAMIN D-3) capsule 2,000 Units 2,000 Units, oral, Daily, First dose on Sun10/15/23 at 0945, Each capsule contains 1,000 units (25 mcg) of cholecalciferol. Given 10/21/2023 7:55 AM CDT 2,000 Units Given 10/20/2023 10:15 AM CDT 2,000 Units Given 10/19/2023 8:51 AM CDT 2,000 Units cyclobenzaprine (FLEXERIL) tablet 5 mg 5 mg, oral, 3 times daily, First dose on Sun10/15/23 at 0945 Given 10/21/2023 7:56 AM CDT 5 mg Given 10/20/2023 8:52 PM CDT 5 mg Given 10/20/2023 3:11 PM CDT [address] (CYMBALTA) extended release capsule 60 mg 60 mg, oral, Daily, First dose on Sun10/15/23 at 0945, Capsule may be opened and contents mixed with applesauce or apple juice ONLY. Do not crush or chew capsule Given 10/21/2023 7:55 AM CDT 60 mg Given 10/20/2023 10:15 AM CDT 60 mg Given 10/19/2023 8:51 AM CDT 60 mg HYDROcodone-acetaminophen (NORCO) 10-325 mg per tablet 1 tablet 1 tablet, oral, Every 6 hours PRN, 2nd line for pain, Starting on Sun10/15/23 at 0859 Given 10/20/2023 9:35 PM CDT 1 t ablet Given 10/19/2023 10:04 PM CDT 1 tablet Given 10/18/2023 11:04 PM CDT 1 tablet levETIRAcetam (KEPPRA) tablet 1,500 mg 1,500 mg, oral, 2 times daily, First dose (after last modification) on Sun10/21/23 at 1030, May mix with 120 mL of enteral nutrition formula or disperse crushed tablets (500 mg tablet strength studied) in 10 mL of water, shake for 5 minutes to dissolve, and administer immediately via enteral feeding tube. Given 10/21/2023 9:56 AM CDT 1,500 mg LORazepam (ATIVAN) tablet 0.5 mg 0.5 mg, oral, 2 times daily, First dose on Sun10/21/23 at 1030, For 6 doses, Indications: seizureIndications:seizure Given 10/21/2023 9:56 AM CDT 0.5 mg metoprolol tartrate (LOPRESSOR) immediate release tablet 25 mg 25 mg, oral, 2 times daily, First dose (after last modification) on Sun10/15/23 at 2100 Given 10/21/2023 7:56 AM CDT 25 mg Given 10/20/2023 8:52 PM CDT 25 mg Given 10/20/2023 9:00 AM CDT [address] (PROTONIX) extended release tablet 40 mg 40 mg, oral, Daily, First dose (after last modification) on Sun10/16/23 at 0900, Do not crush, chew, cut, dissolve, open or otherwise manipulate tablet/capsule., Indications: Treatment of Non-Bleeding Gastric DisorderIndications:Treatment of Non-Bleeding Gastric Disorder Given 10/21/2023 7:55 AM CDT 40 mg Given 10/20/2023 10:15 AM CDT 40 mg Given 10/19/2023 8:51 AM CDT 40 mg sodium chloride 0.9% flush 0.5-20 mL 0.5-20 mL, intra-catheter, Every 8 hours scheduled, First dose on Sun10/16/23 at 1400, Flush volume based on line type and size. Given 10/21/2023 5:27 AM CDT 10 mL Given 10/20/2023 8:53 PM CDT 10 mL Given 10/20/2023 12:49 PM CDT 10 mL sodium chloride 0.9% flush 0.5-20 mL 0.5-20 mL, intra-catheter, As needed, line care, Starting on Sun10/16/23 at 1141, Flush volume based on line type and size. Flush before and after each use. topiramate (TOPAMAX) tablet 50 mg 50 mg, oral, 2 times daily, First dose (after last modification) on Sun10/15/23 at 2100, For 701 doses, On hold since Sun10/16/2023 at 1155 until manually unheld Given 10/16/2023 8:15 AM CDT 50 mg Given 10/15/2023 9:27 PM CDT 50 mg verapamil SR (CALAN SR) extended release tablet 120 mg 120 mg, oral, Nightly, First dose on Sun10/15/23 at 2100, Do not crush, chew, cut, dissolve, open or otherwise manipulate tablet/capsule. Given 10/20/2023 8:52 PM CDT 120 mg Given 10/19/2023 8:58 PM CDT 120 mg Given 10/18/2023 9:39 PM CDT 120 mg documented in this encounter Discontinued Medications Medication Sig Discontinue Reason Start Date End Da te divalproex DR (DEPAKOTE) 250 mg EC tablet Take 1 tablet (250 mg total) by mouth every morning AND 2 tablets (500 mg total) nightly. Other 09/19/2023 10/21/2023 levETIRAcetam (KEPPRA) 1,000 mg tablet Take 1 tablet (1,000 mg total) by mouth 2 (two) times a day 09/25/2023 10/21/2023 topiramate (TOPAMAX) 25 mg tablet Take 1 tablet (25 mg total) by mouth 2 (two) times a day for 7 days, THEN 2 tablets (50 mg total) 2 (two) times a day. Stop Taking at Discharge 09/25/2023 10/21/2023 documented as of this encounter Active and Recently Administered Medications Times are shown in CDT. Scheduled Medication Order 10/19/2023 10/20/2023 10/21/2023 aspirin chewable tablet 81 mg 81 mg, oral, Daily, First dose (after last modification) on Sun10/16/23 at 0900 0851 (Given - Provider: Gudelia Pack RN) 1015 (Given - Provider: Bela Pina) 0755 (Given - Provider: Bela Pina) baclofen (LIORESAL) tablet 5 mg 5 mg, oral, Nightly, First dose (after last modification) on Sun10/16/23 at 2099 2058 (Given - Provider: Ailyn Willis RN) 2052 (Given - Provider: Ailyn Willis RN) busPIRone (BUSPAR) tablet 5 mg 5 mg, oral, 2 times daily, First dose (after last modification) on Sun10/15/23 at 2100 0851 (Given - Provider: Gudelia Pack RN)2058 (Given - Provider: Ailyn Willis RN) 0900 (Given - Provider: Bela Pina)2052 (Given - Provider: Ailyn Willis RN) 0756 (Given - Provider: Bela Pina) cetirizine (ZyrTEC) tablet 10 mg 10 mg, oral, Nightly, First dose on Sun10/15/23 at 2099 2058 (Given - Provider: Ailyn Willis RN) 2051 (Given - Provider: Ailyn Willis RN) cholecalciferol (VITAMIN D-3) capsule 2,000 Units 2,000 Units, oral, Daily, First dose on Sun10/15/23 at 0945, Each capsule contains 1,000 units (25 mcg) of cholecalciferol. 0851 (Given - Provider: Gudelia Pack RN) 1015 (Given - Provider: Bela Pina) 0755 (Given - Provider: Bela Pina) cyclobenzaprine (FLEXERIL) tablet 5 mg 5 mg, oral, 3 times daily, First dose on Sun10/15/23 at 0945 0851 (Given - Provider: Gudelia Pack RN)1523 (Given - Provider: Gudelia Pack RN)2058 (Given - Provider: Ailyn Willis RN) 0900 (Given - Provider: Bela Pina)151 (Given - Provider: Bela Pina)2051 (Given - Provider: Ailyn Willis RN) 0756 (Given - Provider: Bela Pina) DULoxetine DR (CYMBALTA) extended release capsule 60 mg 60 mg, oral, Daily, First dose on Sun10/15/23 at 0945, Capsule may be opened and contents mixed with applesauce or apple juice ONLY. Do not crush or chew capsule 0851 (Given - Provider: Gudelia Pack RN) 1015 (Given - Provider: Bela Pina) 0755 (Given - Provider: Bela Pina) levETIRAcetam (KEPPRA) tablet 1,500 mg 1,500 mg, oral, 2 times daily, First dose (after last modification) on Sun10/21/23 at 1030, May mix with 120 mL of enteral nutrition formula or disperse crushed tablets (500 mg tablet strength studied) in 10 mL of water, shake for 5 minutes to dissolve, and administer immediately via enteral feeding tube. 0956 (Given - Provider: Bela Pina) LORazepam (ATIVAN) tablet 0.5 mg 0.5 mg, oral, 2 times daily, First dose on Sun10/21/23 at 1030, For 6 doses, Indications: seizure 0956 (Given - Provider: Bela Pina) metoprolol tartrate (LOPRESSOR) immediate release tablet 25 mg 25 mg, oral, 2 times daily, First dose (after last modification) on Sun10/15/23 at 2100 0851 (Given - Provider: Gudelia Pack RN)2058 (Given - Provider: Ailyn Willis RN) 0900 (Given - Provider: Bela Pina)2051 (Given - Provider: Ailyn Willis RN) 075 (Given - Provider: Bela Pina) pantoprazole DR (PROTONIX) extended release tablet 40 mg 40 mg, oral, Daily, First dose (after last modification) on Sun10/16/23 at 0900, Do not crush, chew, cut, dissolve, open or otherwise manipulate tablet/capsule., Indications: Treatment of Non-Bleeding Gastric Disorder 0851 (Given - Provider: Gudelia Pack RN) 1015 (Given - Provider: Bela Pina) 0755 (Given - Provider: Bela Pina) sodium chloride 0.9% flush 0.5-20 mL 0.5-20 mL, intra-catheter, Every 8 hours scheduled, First dose on Sun10/16/23 at 1400, Flush volume based on line type and size. 0637 (Given - Provider: Caron Colmenares)1447 (Given - Provider: Gudelia Pack RN)2058 (Given - Provider: Ailyn Willis RN) 0546 (Given - Provider: Ailyn Willis RN)1249 (Given - Provider: Bela Pina)2052 (Given - Provider: Ailyn Willis RN) 0527 (Given - Provider: Ailyn Willis RN) verapamil SR (CALAN SR) extended release tablet 120 mg 120 mg, oral, Nightly, First dose on Sun10/15/23 at 2100, Do not crush, chew, cut, dissolve, open or otherwise manipulate tablet/capsule. 2057 (Given - Provider: Ailyn Willis RN) 2051 (Given - Provider: Ailyn Willis RN) PRN Medication Order 10/19/2023 10/20/2023 10/21/2023 acetaminophen (TYLENOL) tablet 650 mg 650 mg, oral, Every 4 hours PRN, 1st line for pain, fever, fever greater than 38.3 C, Starting on Sun10/15/23 at 0804, Indications: Fever, Pain 0851 (Given - Provider: Gudelia Pack RN)1523 (Given - Provider: Gudelia Pack RN)210 (Given - Provider: Ailyn Willis RN) 151 (Given - Provider: Bela Pina)2051 (Given - Provider: Ailyn Willis, AMBROSE) Carrier Fluids for Secondary Infusion - 0.9% Sodium Chloride 30 mL, intravenous, As needed, For priming tubing and/or flushing, Starting on Sun10/16/23 at 1141, 0-250 ml/hr to flush line after IV infusions when no maintenance IV ordered. Infuse 30mL at the same rate as the secondary infusion. Run as primary IV, not intended for KVO. HYDROcodone-acetaminophen (NORCO) 10-325 mg per tablet 1 tablet 1 tablet, oral, Every 6 hours PRN, 2nd line for pain, Starting on Sun10/15/23 at 0859 2113 (Not Given - Provider: Ailyn Willis RN - Reason: Other)2203 (Given - Provider: Ailyn Willis RN) 2134 (Given - Provider: Ailyn Willis RN) hydrOXYzine (VISTARIL) capsule 25 mg 25 mg, oral, 3 times daily PRN, itching, Starting on Sun10/15/23 at 0859 polyethylene glycol (MIRALAX) packet 17 g 17 g, oral, Daily PRN, constipation, Starting on Sun10/15/23 at 0900 sodium chloride 0.9% flush 0.5-20 mL 0.5-20 mL, intra-catheter, As needed, line care, Starting on Sun10/16/23 at 1141, Flush volume based on line type and size. Flush before and after each use. documented in this encounter Orders Medications Ordered That Arnoldo ht Not Have Been Administered Count Last Ordered Date First Ordered Date levETIRAcetam (KEPPRA) tablet 1,500 mg 1 Carrier Fluids for Secondary Infusion - 0.9% Sodium Chloride 1 10/16/2023 sodium chloride 0.9% flush 0.5-20 mL 1 08/2023 aspirin chewable tablet 81 mg 1 10/15/2023 baclofen (LIORESAL) tablet 5 mg 1 busPIRone (BUSPAR) tablet 5 mg 1 10/15/2023 hydrOXYzine (VISTARIL) capsule 25 mg 1 07/2023 levETIRAcetam (KEPPRA) tablet 1,000 mg 1 metoprolol tartrate (LOPRESS OR) immediate release tablet 25 mg 1 10/15/[address] (PROTONIX) e xtended release tablet 40 mg 1 10/15/2023 polyethylene glycol (MIRALAX) packet 17 g 1 10/15/2023 topiramate (TOPAMAX) tablet 50 mg 1 024 Nursing Count Last Ordered Date First Orde red Date SLEEP DEPRIVATION 3 10/16/2023 10/15/2023 WEIGH PATIENT 1 10/15/2023 Consult Count Last Ordered Date First Orde red Date IP CONSULT TO VASCULAR ACCESS TEAM 1 2023 Admission Count Last Ordered Date First Orde red Date ADMIT TO INPATIENT 1 10/15/2023 Discharge Count Last Ordered Date First Orde red Date DISCHARGE PATIENT 1 10/21/2023 CORE MEASURES Count Last Ordered Date First Ord ered Date REASON FOR NO VTE PROPHYLAXIS AT ADMISSION 1 10/15/2023 ADT Patient Update Count Last Ordered Date Firs t Ordered Date PROVIDER TREATMENT TEAM 1 10/15/2023 documented in this encounter Care Teams Chief Credit Officer Relationship Specialty Start Date End Date Jaden Thakur DO [address] [place] [id number] PCP - General Family Medicine 06/01/23 documented as of this encounter
--- OUTSIDE RECORDS SUMMARY | 2024-03-19 20:53 | XMS_ITS | Encounter Summary ---
Author Organization [facility] Healthcare Address [address] [place] [address] Care Team Providers Care Track Fitter Name Role Phone Jaden Thakur Primary Care Provide r Reason for Visit * MRI/CAT/PET Scan (Routine) - Closed Specialty Diagnoses / Procedures Referred By Conttorin t Referred To Contact Procedures Neuro MR Outside Reference Gonzalez Jaffe MD 1 [facility] [address] [place] [phone] Phone: tel: fax: Referral ID Status Reason Start Date Expiration Date Visits Re quested Visits Authorized [id number] Closed 06/02/2023 07/01/2024 1 1 Encounter Details Date Type Department Care Team (Latest Contact Info) Description 06/02/2023 8:29 PM CDT - 06/02/2023 11:59 PM CDT Hospital Encounter [facility] [address] [place] [phone] Discharge Disposition: Discharge to home or self care Social History Tobacco Use Types Packs/Day Years Used Date Smoking Tobacco: Never Smokeless Tobacco: Never Personal Safety Answer Date Recorded Getting School Help Needed Not on file 05/13 Comments Unknown Sex and Gender Information Value Date Recorded Sex Assigned at Not on file 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 ??There will be no report generated by a [facility] Radiologist. Narrative [facility] - 06/02/2023 8:29 PM CDT EXAMINATION: ??Images For Reference Purposes Only Gonzalez Jaffe MD IMG MRI PROCEDURES Final Result [facility] documented in this encounter Visit Diagnoses Not on filedocumented in this encounter Care Teams Track Fitter Relationship Specialty Start Date End Date Jaden Thakur DO [address] [place] [phone] PCP - General Family Medicine 06/01/23 documented as of this encounter
--- OUTSIDE RECORDS SUMMARY | 2024-03-19 20:53 | XMS_ITS | Encounter Summary ---
Author Organization [facility] Healthcare Address [address] [place] [address] Care Team Providers Care Environmental Health And Safety Leader Name Role Phone Jaden Thakur DO Primary Care Provide r Reason for Visit * Reason Comments Vaginal Discharge Entered automaticall y based on patient selection in [employer] 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 C/o vaginal itching. Denies dysuria, fevers or vaginal d/c. States she's confident she's not . States she recently took Ancef (abx). States it feels similar to previous vaginal yeast infections. The patient-submitted questionnaire was assessed for pertinent information and the patient's problem list, medication list, and allergies were reviewed as part of the e-visit. The chart was updated to identify any changes in these areas. Assessment: Diagnosis Plan 1. Acute vaginitis Plan: Diflucan erx'ed to pharmacy. If any problems or questions or no improvement of symptoms in the nextfew days, please f/u w/ PCP. If symptoms worsen, go to the ED. The patient was given information regarding any new medication(s) prescribed, if applicable, as well as any [id number] remedies. She was given instructions regarding follow up and timeframe if symptoms worsen or don???t improve. These instructions were included in the [employer] message reply tothe patient. Patient Instructions were included in the message reply to patient. My total encounter time on 12/10/2023 was 5 minutes which was spent in the activities documented inthe note. New Medications Ordered This Visit fluconazole (Diflucan) 150 mg tablet Si tablet, one time only, may repeat once after 4 days Dispense: 2 tablet Refill: 0 Crissy Estrella MD documented in this encounter Plan of Treatment Not on file documented as of this encounter Visit Diagnoses Diagnosis Acute vaginitis- Primary Unspecified vaginitis and vulvovaginitis documented in this encounter Care Teams Environmental Health And Safety Leader Relationship Specialty Start Date End Date Jaden Thakur DO [address] [place] [phone] PCP - General Family Medicine 06/01/23 documented as of this encounter
--- OUTSIDE RECORDS SUMMARY | 2024-03-19 20:53 | XMS_ITS | Encounter Summary ---
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 us Not In File Miscellaneous IMG XR PROCEDURES Tia l Result [facility] documented in this encounter Visit Diagnoses Not on filedocumented in this encounter Care Teams Professor Of Rhetoric Relationship Specialty Start Date End Date Jaden Thakur DO [address] [place] [phone] PCP - General Family Medicine 06/01/23 documented as of this encounter
--- OUTSIDE RECORDS SUMMARY | 2024-03-19 20:53 | XMS_ITS | Encounter Summary ---
Author Organization [facility] Healthcare Address [address] [place] [address] Care Team Providers Care Wire Stripper Name Role Phone Jaden Thakur DO Primary Care Provide r Encounter Details Date Type Department Care Team (Late st Contact Info) Description 09/28/[address] 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 documented in this encounter Plan of Treatment Not on file documented as of this encounter Visit Diagnoses Not on filedocumented in this encounter Care Teams Wire Stripper Relationship Specialty Start Date End Date Jaden Thakur DO [address] [place] [phone] PCP - General Family Medicine 06/01/23 documented as of this encounter
--- OUTSIDE RECORDS SUMMARY | 2024-03-19 20:53 | XMS_ITS | Encounter Summary ---
Author Organization [facility] Healthcare Address [address] [place] [address] Care Team Providers Care Heading And Priming Tool Setter Name Role Phone Jaden Thakur DO Primary Care Provide r Reason for Visit * Reason Comments UTI Entered automaticall y based on patient selection in [facility] [facility]. 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 Consuelo Jimenez 08/03/2023 E-Visit Submission Subjective/Objective: Consuelo Jimenez contacted the office today via e-visit for UTI. The patient-submitted questionnaire was assessed for pertinent information and the patient's problem list, medication list, and allergies were reviewed as part of the e-visit. The chart was updated to identify any changes in these areas. Assessment: Diagnosis Plan 1. Acute cystitis without hematuria Plan: The patient was given information regarding any new medication(s) prescribed, if applicable, as well as any [id number] remedies. She was given instructions regarding follow up and timeframe if symptoms worsen or don???t improve. These instructions were included in the [employer] message reply tothe patient. Patient Instructions were included in the message reply to patient. My total encounter time on 08/03/2023 was 5 minutes which was spent in the activities documented inthe note. New Medications Ordered This Visit cephalexin (KEFLEX) 500 mg capsule Sig: Take 1 capsule (500 mg total) by mouth 2 (two) times a day for 5 days Dispense: 10 capsule Refill: 0 Minerva Torrez NP documented in this encounter Plan of Treatment Not on file documented as of this encounter Visit Diagnoses Diagnosis Acute cystitis without hematuria- Primary documented in this encounter Care Teams Heading And Priming Tool Setter Relationship Specialty Start Date End Date Jaden Thakur DO [address] [place] [phone] PCP - General Family Medicine 06/01/23 documented as of this encounter
--- OUTSIDE RECORDS SUMMARY | 2024-03-19 20:53 | XMS_ITS | Encounter Summary ---
Author Organization [facility] Healthcare Address [address] [place] [address] Care Team Providers Care Chairman Emeritus Name Role Phone Jaden Thakur DO Primary Care Provide r Reason for Visit * Auth/Cert (Routine) Specialty Diagnoses / Procedures Referred By Jimena muller Referred To Contact Diagnoses Seizures (HCC) Seizure (HCC) Procedures video eeg Referral ID Status Reason Start Date Expiration Date Visits Re quested Visits Authorized [id number] 1 1 Encounter Details Date Type Department Care Team (Latest Contact Info) Description 10/15/2023 8:00 AM CDT Ancillary Procedure [address] [id number] Neisha Rodriguez Seizure disorder, complex partial (HCC) Social History Tobacco Use Types Packs/Day [...] on file Legal Sex Female 10:05 AM [employer] Gender Identity Not on file Sexual Orientation Not on file documented as of this encounter Plan of Treatment Not on file documented as of this encounter Procedures Procedure Name Priority Date/Time Associated Diagnosis Comments CONTINUOUS VIDEO EEG Routine 10/21/2023 1:05 PM CDT Seizure disorder, complex partial (HCC) documented in this encounter Results * Continuous Video EEG -[facility] (10/21/2023 1:05 PM CDT) Anatomical Region Laterality Modality EEG Narrative 10/22/2023 1:43 PM CDT Video-EEG Report Patient Name: Consuelo Jimenez [facility] Medical Record Number (MRN): [id number] [facility] Record: No Soarian MRN Date of (): 1980 EEG Date: 10/15/2023 Ordering Provider: Gonzalez Jaffe MD CC: Jaden Thakur Start Time: ??9:56:25 AM ??10/15/2023 ? End Time: ??11:13:31 AM ??10/21/2023 Introduction: Ms. Jimenez is a 42 y.o. female with a history of right MCA ischemic stroke s/p [place] (10/2022) and [facility] referred to EMU for characterization of spells concerning for seizures. EEG was performed for further characterization of events and epileptiform abnormalities. This is a report of continuous video-EEG monitoring. High definition digital video and digital EEG were recorded continuously with a [employer] EEG acquisition system. This was a 32 [...] identified by vertex waves, sleep spindles and K-complexes. During the recording, there were changes consistent with light and deep sleep stages. Intermittent admixed polymorphic theta and delta was activity was occasionally observed over the left temporal region. Occasional well formed left temporal sharp waves (T7, F7, T7/F7) and poorly formed right posterior quadrant (P8 > P4) sharp waves were observed, and were more frequently observed as antiepileptics were withdrawn. Epoch 1: 09:56:25 AM 10/15/2023 to 09:56:25 AM 10/16/2023 The interictal EEG was as described above. There were no clinical or electrographic events. Hyperventilation and photic strobe stimulation was not performed. Epoch 2: :56:25 AM 10/16/2023 to :56:25 AM 10/17/2023 The interictal EEG was as described above. There were no clinical or electrographic events. Hyperventilation and photic strobe stimulation was not performed. Epoch 3: :56:25 AM 10/17/2023 to :56:25 AM 10/18/2023 The interictal EEG was described as above. Photic strobe stimulation was performed and elicited no abnormalities. Hyperventilation was not performed. Event #1 occurred at 16:48 PM on 10/17/2023 - Electrographically, the background showed a baseline awake pattern with no significant change from baseline. - Clinically, the patient was in bed awake with no obvious clinical changes. She reported a feeling of stiffening in her left foot that went up to her arm and into her lower back area. She was able to follow commands and respond to questions by nursing staff with no abnormality. ?? Event #2 occurred at 17:18 PM on 10/17/2023 - Electrographically, the background showed a baseline awake pattern with no significant change from baseline - Clinically, the patient was in bed awake with a brief right finger twitch that was noted before the onset of the Event button press (17:18:37). She reported a similar feeling in her right thumb and left leg as Event #1 and felt like her eyes were going back and forth. Epoch 4: 09:56:25 AM 10/18/2023 to :56:25 AM 10/19/2023 The interictal EEG was described as above. Hyperventilation and photic strobe stimulation were not performed. Event #3 occurred at 16:44 PM on 10/18/2023 - Electrographically, the background showed a baseline awake pattern with no significant change from baseline. - Clinically, the patient was in bed awake with no obvious clinical changes. She initially reported a feeling of stiffening in her right leg and then reported feeling it on the left side. She was able to follow commands and respond to questions by nursing staff with no noted abnormalities. ?? Event #4 occurred at 18:41 PM on 10/18/2023 - Electrographically, the background showed a baseline awake pattern with no significant change from baseline - Clinically, the patient was in bed awake and reported a tightening feeling of her leg and hand on the left side, and then later reported soreness in her legs. She was able to follow commands and respond to questions by nursing staff with no noted abnormalities. Seizure #1 occurred at 03:13 AM on 10/19/2023 - Electrographically, the background showed a baseline asleep pattern (N3). Electrographic start occurred in the form of right posterior quadrant semi-rhythmic sharply contoured discharges between 1.5 - 2 Hz (P4 > P8; 03:13:57). There was a noted increase in rhythmicity to sharply contoured theta activity (03:14:30) with evolution in morphology to 2-3 Hz sharp waves and propagation throughout the right posterior quadrant (P4 >P8/O2) with continued evolution until electrographic stop (03:19:02). - Clinically, the patient was in bed asleep with no obvious clinical changes. Epoch 5: 09:56:25 AM 10/19/2023 to 09:56:25 AM 10/20/2023 The interictal EEG was as described above. There were no clinical or electrographic events. Hyperventilation and photic strobe stimulation were not performed. Epoch 6: 09:56:25 AM 10/20/2023 to 09:56:25 AM 10/21/2023 The interictal EEG was as described above. There were no clinical or electrographic events. Hyperventilation and photic strobe stimulation were not performed. ?? Epoch 7: 09:56:25 AM 10/21/2023 to 11:13:31 AM 10/21/2023 Hyperventilation and photic strobe stimulation were not performed. The interictal EEG was as described above. There were no clinical or electrographic events. Interpretation: This is an abnormal video/EEG study due to: 1) one focal electrographic seizure with onset and evolution in the right parietal region, 2) well formed left temporal epileptiform discharges, 3) poorly formed right parietal epileptiform discharges, more frequently observed as antiepileptics were withdrawn, 4) right hemispheric slowing, and 5) left temporal slowing. Focal epileptiform discharges are typically seen in patients with a history of focal seizures. Focal slowing indicates focal cerebral dysfunction, consistent with the clinical history. A total of four clinical events were captured (Event #1-4), clinically characterized by either stiffening or paresthesia of her right or left side, with retained awareness, which had no EEG correlate. ??With the caveat that the patient's typical event baseline is poorly established, as the patient only had two events of life prior to this study, the events captured during this admission did not encompass the full extent of the events reported at home, which included loss of awareness, and involuntary shaking movements of her extremities. Repeat video-EEG monitoring to capture all of the patient's typical clinical events may be considered if clinically indicated. By signing this report, the attending Electroencephalographer certifies that he/she personally reviewed the electrodiagnostics study and has edited this report to fully conform with his/her intent. Signing Attending: Munir Waters MD PhD Gonzalez Jaffe MD NEUROLOGY ORDERABLES Fin al Result documented in this encounter Visit Diagnoses Diagnosis Seizure disorder, complex partial (HCC) Localization-related (focal) (partial) epilepsy and epileptic syndromes with complex partial seizures, without mention of intractable epilepsy documented in this encounter Care Teams Chairman Emeritus Relationship Specialty Start Date End Date Jaden Thakur DO [address] [place] [id number] PCP - General Family Medicine 06/01/23 documented as of this encounter
--- OUTSIDE RECORDS SUMMARY | 2024-03-19 20:53 | XMS_ITS | Encounter Summary ---
Author Organization [facility] Healthcare Address [address] [place] [id number] Care Team Providers Care Home Companion Name Role Phone Jaden Thakur DO Primary Care Provide r Reason for Visit * Reason Comments Pain DOI: Approx 10/2022 (No IRAIS, sudden pain)MRI: 04/04/2023Last Bursitis CSI: 02/15/2023 Encounter Details Date Type Department Care Team (Late st Contact Info) Description 06/04/2023 2:00 PM CDT Office Visit [facility] Sports Medicine and Primary Care at [address] [place] [address] Cheli García MD [address] [place] [address] [address] [place] [address] Tear of left acetabular labrum, subsequent encounter (Primary Dx); Left hip pain; Left spastic hemiparesis (CMS/HCC) (HCC); Personal history of stroke with residual effects Social History Tobacco Use Types Packs/Day Years Used Date Smoking Tobacco: Never Smokeless Tobacco: Never Personal Safety Answer Date Recorded Getting School Help Needed Not on file 05/13 Comments Unknown Sex and Gender Information Value Date Recorded Sex Assigned at Not on file Legal Sex Female 10:05 AM [employer] Gender Identity Not on file Sexual Orientation Not on file documented as of this encounter Last Filed Vital Signs Vital Sign Reading Time Taken Comments Blood Pressure 120/84 06/04/2023 1:55 PM CDT Pulse 76 06/04/2023 1:55 PM CDT Temperature - - Respiratory Rate - - Oxygen Saturation - - Inhaled Oxygen Concentration - - Weight 102.1 kg (225 lb) 06/04/2023 1:55 PM CDT Height 162.6 cm (5' 4 ) 06/04/2023 1:55 PM CDT Body Mass Index 38.62 06/04/2023 1:55 PM CDT documented in this encounter Patient Instructions * Patient Instructions* Cheli García MD - 06/04/2023 2:00 PM CDT We will schedule for ultrasound guided left hip joint steroid injection. Plan would be to see how you do with that and then re-evaluate after 4 weeks. If that does not help, then we would start targeting more towards the back documented in this encounter Progress Notes * Cheli García MD - 06/04/2023 2:00 PM CDT Images from the original note were not included. [facility] Primary Care Sports Medicine at [facility] Consult PCP: Jaden Thakur DO Chief Complaint Patient presents with Left Hip - Pain DOI: Approx 10/2022 (No IRAIS, sudden pain) MRI: 04/04/2023 Last Bursitis CSI: 02/15/2023 NEW PATIENT VISIT Subjective CHIEF COMPLAINT She had concerns including Pain of the Left Hip (DOI: Approx 10/2022 (No IRAIS, sudden pain)/MRI: 04/04/2023/Last Bursitis CSI: 02/15/2023). HISTORY OF PRESENT ILLNESS Patient is here today with her significant other for evaluation of persistent left hip and buttock pain that has been going on for over 6 months. Patient had a significant stroke at that time while hospitalized for the stroke patient developed this new onset left buttock and hip pain. Here for c/o left hip pain. No definitive injury or trauma but started to feel when in hospital after stroke. Has left side paralysis with minimal function to left hip/quad. Pain in groin area and some to lateral hip. Feels groin pain is worse than the lateral hip pain Initially while in the hospital/rehab the lateral hip pain that she was having did respond well to a trochanteric bursa injection. However she had persistent symptoms within the hip and radiating to the groin and buttock. She notes subsequent trochanteric bursa injection failed to provide any benefit. She was working with Orthopedic surgery and pain management previously but due to insurance is now transitioning to see us They obtained an MRI on her left hip. It failed to show any signs of any significant trochanteric bursitis or gluteal tendinopathy. There was findings of a mild left hip joint effusion and suggestionof a possible subtle superior labral tear. Minimal hip chondrosis was noted. The remainder of the musculature around the hip was relatively normal in appearance Pain worse with prolonged sitting. Improved with stretching, range of motion, a. Pain improves somewhen tries to walk with significant assistance Denies tingling or numbness. No radiating pain Stroke only affects motor Has had steroid injection into trochanteric bursa. One helped and the other did not. She is transitioning between hospital systems Has remotely seen pain management. Was suggesting possible US guided troch bursa injection vs hip joint injection. The records from orthopedics and pain management are viewable under patient's 2nd chart under her last name of Baldomero. It appears that initially were they were thinking whether there could be potentialpersistent trochanteric bursitis and wanted the MRI to confirm. If the MRI was negative for trochanteric bursitis then they were thinking about looking at alternative pathology. After the MRI came back without trochanteric bursitis but showed a degree of intra-articular joint effusion with suggestion of a labral tear they recommended possible ultrasound-guided corticosteroid injection within the left hip joint. If she failed to respond to that then they were considering potentially doing some ta rgeted injections in her back to target possible alternative pain generators. There was also concern that some of this could be a centrally mediated pain from the stroke Patient has not had any targeted x-rays on her lumbar spine but had multiple CT abdomen and pelvis is while hospitalized last year. She has not had any advanced imaging in regards to MRI for the back Pain Assessment Pain Assessment: 0-10 Pain Score: (Now: 8/10, Worst: 9/10) Pain Location: Hip Pain Orientation: Left Pain Descriptors: Discomfort, Tender, Sore, Tightness, Radiating, Spasm, Patient unable to describe Pain Frequency: Constant/continuous Pain Onset: Sudden Clinical Progression: Gradually worsening Aggravating Factors: Bending, Stretching, Straightening, Exercise, Kneeling, Squatting, Standing, Stairs, Walking Result of Injury: No Work-Related Injury: No Patient's Stated Pain Goal: No pain Pain Interventions: Rest, Medication (See MAR), Home medication, Other (Comment), Acupuncture, Massage, Cold applied, Warm pack, Heat applied (Wheelchair, PT, Bursitis cortisone shots (last [id number]/07/2023)) PAST MEDICAL HISTORY She has no past medical history on file. PAST SURGICAL HISTORY She has no past surgical history on file. MEDICATIONS She has a current medication list which includes the following prescription(s): aspirin, baclofen, cetirizine, cholecalciferol, cyclobenzaprine, duloxetine dr, hydrocodone-acetaminophen, hydroxyzine,levetiracetam, metoprolol tartrate, pantoprazole dr, polyethylene glycol, and verapamil. ALLERGIES She is allergic to latex and vancomycin. Objective PHYSICAL EXAM BP 120/84 Pulse 76 Ht 162.6 cm (5' 4 ) Wt 102.1 kg (225 lb) BMI 38.62 kg/m?? Ortho Exam Left hip - patient has some tenderness to palpation over the anterior hip and groin region as well as the adductor tendon. There is also moderate tenderness over the lateral hip more so over the gluteal muscles then the trochanteric bursa itself. She also has some diffuse tenderness over the musculature within the left buttock including the gluteus gracie, piriformis and adjacent muscles. No point tenderness to the SI joint. She is moderately tender over the left lower lumbar muscles. There issome suggestive of mild spasticity within the muscles. Patient lacks about 5?? of hip extension from neutral. She has moderate hip flexion. Internal and external rotation are slightly decreased with some pain to the groin and buttock in end range of motion. Tree for was negative. FADIR did cause some groin area pain. Patient does have significant weakness of the left hip with some associated spasticity. She has about a 2/10 ability to actively flex the hip against gravity. She is able to use the leg to stand but does not have much strength within the left hip or buttock There is no definitive rash REVIEW OF X-RAYS/STUDIES/LABS Personally reviewed patient's outside MRI. There is a small hip joint effusion and suggestive of possible mild degenerative superior labral tear. Minimal hip joint chondrosis. There is no significantinflammatory signal within the trochanteric bursa. I do not appreciate any hyperintense T2 signal at the area of the trochanteric bursa. The gluteal tendons are relatively normal in appearance. I donot appreciate any other significant pathology within the left hip joint region. Assessment/Plan Consuelo Elliott was seen today for pain. Diagnoses and all orders for this visit: Tear of left acetabular labrum, subsequent encounter Left hip pain Left spastic hemiparesis (CMS/HCC) (HCC) Personal history of stroke with residual effects Patient definitely does have some findings on exam that could suggest some intra-articular left hippathology given she has some symptoms on joint evaluation. However she also has significant discomfort on palpation of the musculature around the hip and buttock as well as the left low back. I do wonder if some of the symptoms may be related to spasticity related pain from the associated hemiparesis. It is also possible that she may be having some degree of central pain syndrome. She is on baclofen and Flexeril for spasticity. I have encouraged her to continue this. If concern for fast issue related pain persists then she may warrant seeing pain management to get their opinion on possible lukas atment. We did discuss that occasionally they will do baclofen pumps or spinal cord stimulators depending on which triggers they think. Since she is having some symptoms within the joint I think it is reasonable to try an ultrasound- guided corticosteroid injection within the left hip joint. We discussed that this would be both diagnostic and therapeutic. If she gets significant benefit from the lidocaine with injection and then that could indicate this is a pain generator but if the lidocaine provides minimal benefit then it is less likely. I suspect the labral tear is likely just an incidental finding and less likely to be a main pain and Marilyn by itself. I do not appreciate any significant trochanteric bursitis or gluteal tendinopathy on the prior MRI so it is unlikely this is a current pain generator. If the ultrasound guided left hip joint injection is unsuccessful then I would consider obtaining x-rays and MRI and her back to evaluate for possible lumbar pathology that could be contributing. Depending on those results and other concerns then likely beneficial to have her see pain management at that time. Lengthy discussion was had with patient and her significant other at appointment regards to the various potential pain generators and treatment options. I answered their questions to the best of my ability Patient currently does not have any signs of any significant rash within the left inguinal groin region where we would approach for hip joint injection. I did discuss briefly the risk for hip joint injections including risk for lack of benefit, accelerated arthritis, infection, bleeding, avascular necrosis, blood sugar fast, psychiatric effects. After discussion of this they would like to proceedwith trying a left hip joint injection under ultrasound. We will schedule them for procedure visit on a later date within the next 1-2 weeks to get this done as we will likely need some additional time for the procedure given need for this to be done under still protocol and there may be some potential for positioning difficulties if we struggle due to patient's hemiparesis and need for assistance to appropriately position her on the examination table Patient has been in therapy for her back and leg as well as her hemiparesis since the prior stroke.She will continue this therapy. Patient will continue on baclofen for spasticity. We will defer potential narcotics to her [facility] care physician physician Patient advised to call or return if any new or concerning symptoms arise An After Visit Summary was printed and given to the patient. Follow up for ultrasound-guided left hip joint injection Cheli García MD My total encounter time on 06/04/2023 was 50 minutes which was spent in the activities documented inthe note. This includes time spent prior to the visit and after the visit in direct care of the patient. This time does not include time spent in any separately reportable services. documented in this encounter Plan of Treatment Not on file documented as of this encounter Visit Diagnoses Diagnosis Tear of left acetabular labrum, subsequent encounter- Primary Left hip pain Pain in joint, pelvic region and thigh Left spastic hemiparesis (CMS/HCC) (HCC) Spastic hemiplegia affecting unspecified side Personal history of stroke with residual effects Unspecified late effects of cerebrovascular disease documented in this encounter Care Teams Home Companion Relationship Specialty Start Date End Date Jaden Thakur DO [address] [place] [id number] PCP - General Family Medicine 06/01/23 documented as of this encounter
--- OUTSIDE RECORDS SUMMARY | 2024-03-19 20:53 | XMS_ITS | Encounter Summary ---
Author Organization [facility] Healthcare Address [address] [place] [address] Care Team Providers Care National Account Director Name Role Phone Jaden Thakur Primary Care Provide r Reason for Referral * Neurology (Routine) - Closed Specialty Diagnoses / Procedures Referred By Jimena muller Referred To Contact Diagnoses Seizure disorder, complex partial (HCC) Procedures EEG Manuelito Venegas MD [address] [address] Phone: tel: fax: [address] [phone] Referral ID Status Reason Start Date Expiration Date Visits Re quested Visits Authorized [id number] Closed 06/11/2023 07/10/2024 1 1 Reason for Visit * Neurology (Routine) - Closed Specialty Diagnoses / Procedures Referred By Jimena muller Referred To Contact Diagnoses Seizure disorder, complex partial (HCC) Procedures EEG Manuelito Venegas MD [address] [address] Phone: tel: fax: [address] [phone] Referral ID Status Reason Start Date Expiration Date Visits Re quested Visits Authorized [id number] Closed 06/11/2023 07/10/2024 1 1 Encounter Details Date Type Department Care Team (Latest Contact Info) Description 06/25/2023 11:04 AM CDT - 06/25/2023 11:59 PM CDT Hospital Encounter [facility] [address] [place] [address] Jackelyn Costa Seizure disorder, complex partial (HCC) Discharge Disposition: Discharge to home or self care Social History Tobacco Use Types Packs/Day Years Used Date Smoking Tobacco: Former Cigarettes Smokeless Tobacco: Never Personal Safety Answer Date Recorded Getting School Help Needed Not on file 05/13 Comments Unknown Sex and Gender Information Value Date Recorded Sex Assigned at Not on file Legal Sex Female 10:05 AM [employer] Gender Identity Not on file Sexual [...] every 6 (six) hours as needed 06/12/2023 metoprolol tartrate (LOPRESSOR) 25 mg immediate release [...] 2 (two) times a day 60 tablet 5 06/11/2023 09/19/2023 HYDROcodone-aceta minophen (NORCO) 5-325 mg per tabletIndications [...] (two) times a day 60 tablet 11 06/14/2023 09/03/2023 nitrofurantoin monohydrate (MACROBID) 100 mg capsule Take 1 capsule (100 mg total) by mouth 2 (two) times a day 06/04/2023 07/01/2023 verapamiL (CALAN) 40 mg tablet Take 125 mg by mouth every 8 (eight) hours 12/14/2022 09/25/2023 documented as of this encounter Discharge Disposition Disposition Code Departure Means Destination Discharge to home or self care documented in this encounter Plan of Treatment Not on file documented as of this encounter Procedures Procedure Name Priority Date/Time Associated Diagnosis Comments EEG Routine 06/25/2023 4:47 PM CDT Seizure disorder, complex partial (HCC) documented in this encounter Results * EEG (06/25/2023 4:47 PM CDT) Anatomical Region Laterality Modality EEG Narrative 06/25/2023 4:47 PM CDT Routine EEG Report Patient Name: Consuelo Jimenez [facility] Medical Record Number (MRN): [id number] [facility] Record: No Soarian MRN Date of (): 1980 EEG Date: 06/25/2023 Ordering Provider: Manuelito Venegas MD CC: Jaden Thakur Start Time: 06/25/2023 12:13:00 PM ? End Time: 06/25/2023 12:35:13 PM Introduction: Ms. Jimenez is a 42 y.o. female with a history of left hip pain, and stroke, presenting with seizure-like activity. EEG was performed to evaluate for seizures. This is a 32 channel EEG recording acquired on a Agilyx EEG-1200 acquisition system. Scalp electrodes were placed [...] delta range activity over the right hemisphere. ??During drowsiness, identified by ocular signs and alpha [...] intent. 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
--- OUTSIDE RECORDS SUMMARY | 2024-03-19 20:53 | XMS_ITS | Encounter Summary ---
Author Organization [facility] Healthcare Address [address] [place] [address] Care Team Providers Care Computer Aided Design Technician Name Role Phone Jaden Thakur DO Primary Care Provide r Reason for Visit * Auth/Cert (Routine) Specialty Diagnoses / Procedures Referred By Jimena t Referred To Contact Diagnoses Cryptogenic stroke (HCC) Cryptogenic stroke (HCC) [I63.9] Procedures IMPLANTABLE CARDIAC EVENT MONITOR INSERTION [id number] Referral ID Status Reason Start Date Expiration Date Visits Re quested Visits Authorized [id number] 1 1 Encounter Details Date Type Department Care Team (Late st Contact Info) Description 12/03/2023 12:15 PM CDT - 12/03/2023 1:30 PM CDT Surgery [facility] Electrophysiology Lab [address] [place] [address] Angelica Cochran MD [address] [address] IMPLANTABLE CARDIAC EVENT MONITOR INSERTION [id number] Surgery Details Date/Time Status Location OR Service Patient Class Case Class Case Type Trauma Case? 12/03/2023 12:15 PM Posted [facility] EP LAB HYBRID 10 Cardiovascular Outpatient Elective Panel 1 Procedure LRB Anes Op Region Wound Class Comments IMPLANTABLE CARDIAC EVENT MO NITOR INSERTION [id number] N/A Choice Surgeon Surgeon Role Service Panel Angelica Cochran MD Primary Cardiovascular 1 Case Notes 1030 arrival (time given on 11/30/23 by outpatient nurse coordinator-Tonio A.)(ILR implant with anesthesia)R/s fro 11/05/23 to 12/03/23 room 10 per phone call Nikolas GreenKae On 10/03/23 Special Needs Do not eat or drink after midnight the morning of your proceudre. Do not take any morning medications the morning of the procedure except take your Depakote, Keppra and Aspirin with sips of water. 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 Gender Identity Not on file Sexual Orientation Not on file documented as of this encounter Last Filed Vital Signs Vital Sign Reading Time Taken Comments Blood Pressure 140/61 12/03/2023 1:30 PM CDT Pulse 84 12/03/2023 1:30 PM CDT Temperature 36.7 ??C (98.1 ??F) 12/03/2023 10:42 AM C DT Respiratory Rate 14 12/03/2023 1:30 PM CDT Oxygen Saturation 97% 12/03/2023 1:30 PM CDT Inhaled Oxygen Concentration - - Weight 108.9 kg (240 lb) 12/03/2023 10:42 AM CDT Height 162.6 cm (5' 4 ) 12/03/2023 10:42 AM CDT Body Mass Index 41.2 12/03/2023 10:42 AM CDT documented in this encounter Discharge Instructions * Discharge Instructions* Angelica Cochran MD - 12/03/2023 1:36 PM CDT Electrophysiology Service [facility] Implantable Loop Recorder/Implantable Cardiac Monitopr Discharge Instructions Wound Care Do not get the incision wet for 5 days. Take the dressing off in 3 days (the white and the plastic). Leave the steri- strips ON Do not use soap or ointments on the incision. Notify the physician at the office if you develop fever > 100.4, chills, increasing swelling, redness or drainage from your pacemaker site. ID Card You will receive a temporary card from the device company. Carry this in your wallet until your permanent card arrives, usually in 6-8 weeks. Additional Instructions Notify Dr. Cochran's office at [phone] if fever, redness, drainage or swelling at your device site. Please call [phone] if you need to change your follow-up appointment documented in this encounter Medications at [...] 2 (two) times a day 11/13/2023 5 hydrOXYzine (VISTARIL) 25 mg capsule Take 1 [...] documented in this encounter H&P Notes * Angelica Cochran MD - 12/03/2023 10:08 AM CDT EP H&P Subjective Patient is a 43 y.o. female with chief complaint of stroke. HPI: Here for ILR Did not take mm relaxants or narcotics this AM; having L pyriformis pain PROBLEM LIST: 1.Stroke. a.Thought to be cryptogenic. b. Status post thrombolytic therapy at [facility] with 1 hour of last known well. No resolution of symptoms. c.Status post mechanical thrombectomy. d.Status post craniotomy for swelling and then repeat craniotomy in January 2023 to replace the skull section. 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 4.Residual left hemiparesis. 5.Hypertension, treated with verapamil and metoprolol. 6.Dizziness. a.Episodes occur daily. b. relates this to possible change in seizure medications. 7.She also has left shoulder subluxation Past Medical History: Diagnosis Date Hypertension Seizure (HCC) Seizure disorder (CMS/HCC) (HCC) 09/25/2023 Stroke (HCC) Past Surgical History: Procedure Laterality Date SECTION x2 Medications Prior to Admission Medication Sig Dispense Refill Last Dose aspirin 325 mg tablet Take 81 mg by mouth daily baclofen (LIORESAL) 5 mg tablet Take 1 tablet (5 mg total) by mouth nightly busPIRone (BUSPAR) 5 mg tablet Take 1 tablet (5 mg total) by mouth 2 (two) times a day cetirizine 10 mg tablet,disintegrating Take 10 mg by mouth nightly cholecalciferol 25 mcg (1,000 unit) tablet 2 tablets (2,000 Units total) daily cyclobenzaprine (FLEXERIL) 5 mg tablet Take 1 tablet (5 mg total) by mouth 3 (three) times a day DULoxetine DR (CYMBALTA) 60 mg capsule Take 1 capsule (60 mg total) by mouth daily HYDROcodone-acetaminophen (NORCO) 10-325 mg per tablet Take 1 tablet by mouth every 6 (six) hours as needed hydrOXYzine (VISTARIL) 25 mg capsule Take 1 capsule (25 mg total) by mouth 3 (three) times a day asneeded for itching levETIRAcetam (KEPPRA) 1,000 mg tablet Take 1.5 tablets (1,500 mg total) by mouth 2 (two) times a day 270 tablet 1 LORazepam (ATIVAN) 0.5 mg tablet Take 1 tablet (0.5 mg total) by mouth 2 (two) times a day for 5 doses 5 tablet 0 metoprolol tartrate (LOPRESSOR) 25 mg immediate release tablet Take 1 tablet (25 mg total) by mouth2 (two) times a day pantoprazole DR (PROTONIX) 40 mg EC tablet Take 1 tablet (40 mg total) by mouth daily polyethylene glycol (MIRALAX) 17 gram packet 1 packet (17 g total) 2 (two) times a day as needed verapamil SR (CALAN SR) 120 mg CR tablet Take 1 tablet (120 mg total) by mouth nightly Allergies Allergen Reactions Latex Rash Vancomycin Other (See comments) High fevers Social History Tobacco Use Smoking status: Former Types: Cigarettes Smokeless tobacco: Never Substance and Sexual Activity Drug use: Not on file Sexual activity: Not on file Alcohol Use: Not At Risk (04/10/2019) [facility] AUDIT-C Frequency of Alcohol Consumption: Monthly or less Average Number of Drinks: 1 or 2 Frequency of Binge Drinking: Never Family History Problem Relation Age of Onset Osteoporosis Other Blood Clot Other Review of Systems L hip pain Objective Vitals: Vitals: 12/03/23 1042 BP: 130/75 Pulse: 79 Resp: 14 Temp: 36.7 ??C (98.1 ??F) SpO2: 96% Physical Exam GENERAL: Uncomfortable HEAD AND NECK: Anicteric sclerae. BACK: No CVA tenderness. CHEST: Clear. Equal breath sounds. No rales or wheezes. CARDIAC: Regular rate and rhythm. S1, S2 normal. No S3. No murmur, heave, or thrill. ABDOMEN: Round, soft. EXTREMITIES: L hip pain NEUROLOGIC: LUE weakness Lab/Radiology/Diagnostic Review: Telemetry review: I have NSR Assessment Principal Problem: Cryptogenic stroke (HCC) Plan I have discussed risks and benefits of the procedure with the patient, which include OR CVA DVT PE valve vessel damage lead and generator failure recall, bleeding, infection, tamponade, PNTX, hemothorax, etc I have discussed the in-person and remote follow-up recommendations with the possibility of required co-pays Questions answered Consent signed NPO after MN IV pain meds prior to transfer to procedure table; discussed with Dr Robles documented in this encounter Nursing Notes * Trevor Soto, AMBROSE - 12/03/2023 3:36 PM CDT Patient returns from procedure alert and oriented x 4. Dressing to the left chest has remained clean and dry with no signs of active bleeding or oozing. The site has remained soft and free from a hematoma. PT has been drinking and eating, tolerating well. Once bedrest was completed, pt stood at bedside while being assisted. Patient stated that there was no dizziness. IV was removed with tip intact, coban applied. All belongings returned to patient, AVS reviewed and signed by patient, patient discharged per MD order via wheelchair accompanied by spouse. documented in this encounter Plan of Treatment Not on file documented as of this encounter Procedures Procedure Name Priority Date/Time Associated Diagnosis Comments LOOP INSERTION Routine 12/03/2023 1:17 PM CDT Cryptogenic stroke (HCC) EGFR Routine 12/03/2023 10:14 AM CDT Cryptogenic stroke (HCC) URINALYSIS AND REFLEX TO MICROSCOPIC AND CULTURE Routine 12/03/2023 10:14 AM CDT Cryptogenic stroke (HCC) URINALYSIS, MICROSCOPIC ONLY Routine 12/03/2023 10:14 AM CDT Cryptogenic stroke (HCC) CBC WITHOUT DIFFERENTIAL Routine 12/03/2023 10:14 AM CDT Cryptogenic stroke (HCC) URINE CULTURE Routine 12/03/2023 10:14 AM CDT BASIC METABOLIC PANEL Routine 12/03/2023 10:14 AM CDT Cryptogenic stroke (HCC) documented in this encounter Results * LOOP INSERTION (12/03/2023 1:17 PM CDT) Anatomical Region Laterality Modality X-Ray Angiograph y Narrative 12/03/2023 1:24 PM CDT IMPLANTATION OF IMPLANTABLE LOOP RECORDER/ABORIGINAL LIAISON OFFICER Patient Name:Consuelo Jimenez Patient date of : 1980 Date of Procedure: ??12/03/2023 OPERATORS: 1. Angelica Cochran MD [facility] PROCEDURES: 1. Implantation of ??[employer] LUX-Dx2 M312 SN [id number] UBD 02-22-2025 TOTAL CONTRAST: 0 cc TOTAL FLUROSCOPY TIME:0 ??Minutes MEDICATIONS Marcaine 0.25% with epi ??7cc Cefazolin 2 gm IV INDICATION FOR PROCEDURE: Cryptogenic CVA PATIENT HISTORY: 43 y/o female with cryptogenic CVA treated with both thrombolytics and mechanical thrombectomy at an OSH. ??She has residual defects and chronic pain. ??She is referred for ILR implant. The baseline rhythm is NSR. PROCEDURE DESCRIPTION: Informed consent was obtained in writing prior to procedure after full detailed explanation of risks, benefits and alternatives and all of the patient's questions were answered. IV medications were provided for her pain by the anesthesiology service as she held her chronic meds this AM. The patient was brought to the cardiac EP lab in a fasting state and prepped and draped in the usual sterile fashion. The patient was kept on continuous ECG, blood pressure and oxygen saturation monitoring throughout the entire procedure. A procedural time-out was performed per protocol to confirm patient identity and procedure to be performed. MAC anesthesia was provided by the Anesthesiology service- see anesthesia record Local anesthesia was obtained with 0.25% bupivacaine with epinephrine in the left parasternal region after completion of the IV antibiotics. A #15 surgical blade was used to make a small incision in the L parasternal area in the 4th ICS. The implant tool was used to implant the ILR in the usual fashion. The ILR is a [employer] LUX-Dx2 M312 SN [id number] UBD 02-22-2025 The incision was sutured closed in 4-0 Vicryl. ??Steri strips were paced over the incision and a sterile dressing was placed. The patient tolerated the procedure well without any complications. The patient was returned to the [facility] in stable condition. Sponge needle and instrument counts were correct x2 IMPLANT INFORMATION Generator: [employer] LUX-Dx2 M312 SN [id number] UBD 02-22-2025 IMPLANT TESTING: R wave 0.3 mV P waves clearly visible PROGRAMMING: Tachycardia detection 170 bpm for 5 seconds Asystole 3 seconds day; 5 sec nighttime Bradycardia 40 bpm for 1 second AF detection ON 4 minute duration CONCLUSION: Successful implantation of a [employer] LUX-Dx2 M312 SN [id number] UBD 02-22-2025 RECOMMENDATIONS: Remove dressing in three days No shower for 5 days Resume outpatient meds as scheduled DC to Home at 1500 Leave steristrips ON Attestation I was present for the entire procedure and prepared this report. Angelica Cochran MD [facility] ?? us Angelica Cochran MD CV ELECTROPHYSIOLOGY PROCS Fin al Result * eGFR (12/03/2023 10:14 AM CDT) eGFR >90 >=60 mL/min/1. 73 m2 Comment: [...] of Race in Diagnosing Kidney Disease, JASN 202). The CKD-EPI equation should not be used for patients with unstable renal function and has not been validated in children and those over 70. Current interpretive data was last reviewed 2021. Blood 12/03/2023 10:1 4 AM CDT 12/03/2023 11:37 AM CDT us Angelica Cochran MD LAB BLOOD ORDERABLES Final Res ult [facility] [place] [address] * Urine culture Urine (12/03/2023 10:14 AM CDT) Report Final Report: Less than 100,000 colonies/mL (clinically insignificant growth based on current clinical standards) Organism (CLINICALLY INSIGNIFICANT GROWTH [facility] Urine 12/03/2023 10:1 4 AM CDT 12/03/2023 12:16 PM CDT Narrative [facility] - 12/04/2023 3:30 PM CDT Urine culture reflexed based upon urinalysis results. Testing performed by [facility] Microbiology Laboratory ([phone]) us Angelica Cochran MD LAB MICROBIOLOGY - GENERAL ORD ERABLES Final Result Performing Organization Address [facility] Co de Phone Number [facility] Department [place] [address] * (ABNORMAL) Urinalysis, microscopic only (12/03/2023 10:14 AM CDT) WBC, ur 11-20(A) 0 - 5 /HPF RBC, ur 0-2 0 - 2 /HPF [facility] Epithelial cells, squamous, ur 21-50(A) 0 - 5 /HPF [facility] Comment:Suggestive of contam ination. Consider recollection by clean catch. Bacteria, ur Trace(A) [facility] Mucous, ur Present(A) [facility] Culture Reflex Comment Reflex to urine culture will be performed. [facility] Urine 12/03/2023 10:1 4 AM CDT 12/03/2023 11:19 AM CDT us Angelica Cochran MD LAB URINE ORDERABLES Final Res ult Performing Organization Address [facility]/ZIP Co de Phone Number [facility] Department [place] [employer] [place] [address] * (ABNORMAL) Urinalysis reflex to microscopic and culture Urine (12/03/2023 10:14 AM CDT) Color, ur Yellow Yellow Clarity, ur Cloudy(A) Clear [facility] Specific gravity, ur 1.030 1.003 - 1.030 [facility] pH, urine 6.5 [facility] Comment: Interpretive Data ? Urine pH is affected by diet, medications, systemic acid-base disturbances, and renal tubular function. ??pH may affect urinary stone formation. ??For example, urine pH below 6.0 may help reduce the tendency for calcium phosphate stones and pH greater than 6.0 may reduce the tendency for uric acid stone formation. Source: [facility] Current Interpretive Data was last revised on 2017 Protein, ur ql Trace Negative [facility] Glucose, ur ql Negative Negative [facility] Ketones, ur 1+(A) Negative [facility] Bilirubin, ur Negative Negative [facility] Blood, ur Negative Negative [facility] Urobilinogen, ur 2.0(A) <2.0 mg/dL [facility] Nitrite, ur Negative Negative [facility] Leukocyte esterase, ur 2+(A) Negative [facility] UA reflex comment Reflex to microscopic UA will be performed. [facility] Urine 12/03/2023 10:1 4 AM CDT 12/03/2023 11:19 AM CDT Angelica Cochran MD LAB MICROBIOLOGY - GENERAL ORD ERABLES Final Result [facility] [place] [address] * (ABNORMAL) CBC without differential (12/03/2023 10:14 AM CDT) WBC 5.8 3.8 - 9.9 K/cumm Hgb 12.6 11.9 - 15.5 g/dL [facility] Hct 37.7 35.6 - 45.5 % [facility] Plt 319 150 - 400 K/cumm [facility] MPV 10.6 9.1 - 12.3 fL [facility] RBC 4.06 3.90 - 5.20 M/cumm [facility] MCV 92.9 81.3 - 96.4 fL [facility] MCH 31.0 27.1 - 33.3 pg [facility] MCHC 33.4 32.3 - 35.7 g/dL [facility] RDW CV 14.5 11.1 - 14.9 % [facility] RDW SD 49.0(H) 35.7 - 48.1 fL [facility] NRBC abs 0.00 0.00 - 0.01 K/cumm [facility] Blood 12/03/2023 10:1 4 AM CDT 12/03/2023 11:19 AM CDT Narrative [facility] - 12/03/2023 11:45 AM CDT If most recent labs were drawn prior to 4 AM, draw only prior to initiating procedure. us Angelica Cochran MD LAB BLOOD ORDERABLES Final Res ult [facility] [place] [address] * (ABNORMAL) Basic metabolic panel (12/03/2023 10:14 AM CDT) Sodium 136 135 - 145 mmol/L Potassium, pl 4.1 3.3 - 4.9 mmol/L [facility] Chloride 100 97 - 110 mmol/L [facility] CO2 23 22 - 32 mmol/L [facility] Anion gap 13 2 - 15 mmol/L [facility] BUN 10 6 - 25 mg/dL [facility] Creatinine 0.59(L) 0.60 - 1.10 mg/dL [facility] Glucose 105 70 - 199 mg/dL [facility] Comment: Interpretive Data Fasting glucose >/= [...] interpretive data was last revised 2022. Calcium 9.0 8.5 - 10.3 mg/dL [facility] Blood 12/03/2023 10:1 4 AM CDT 12/03/2023 11:19 AM CDT us Angelica Cochran MD LAB BLOOD ORDERABLES Final Res ult [facility] [place] [address] documented in this encounter Visit Diagnoses Diagnosis Cryptogenic stroke (HCC)- Primary Cryptogenic stroke (HCC) documented in this encounter Admitting Diagnoses Diagnosis Cryptogenic stroke (HCC) documented in this encounter Administered Medications Inactive Administered Medications - up to 3 most recent administrations Medication Order MAR Action Action Date Dose Rate Site BUPivacaine-EPINEPHrine (MARCAINE with EPI) 0.25 %-1:200,000 preservative free injection Code/trauma/sedation medication, Starting on Sun12/03/23 at 1254, Intra-Procedure (CV) Given 12/03/2023 12:54 PM CDT 7 mL Carrier Fluids for Secondary Infusion - 0.9% Sodium Chloride 30 mL, intravenous, As needed, For priming tubing and/or flushing, Starting on Sun12/03/23 at 1013, Pre-Procedure (CV), 0-250 ml/hr to flush line after IV infusions when no maintenance IV ordered. Infuse 30mL at the same rate as the secondary infusion. Run as primary IV, not intended for KVO.Indications:Cryptogenic stroke (HCC) sodium chloride 0.9% flush 0.5-20 mL 0.5-20 mL, intra-catheter, Every 8 hours scheduled, First dose on Sun12/03/23 at 1400, Pre-Procedure (CV), Flush volume based on line type and size.Indications:Cryptogenic stroke (HCC) sodium chloride 0.9% flush 0.5-20 mL 0.5-20 mL, intra-catheter, As needed, line care, Starting on Sun12/03/23 at 1013, Pre-Procedure (CV), Flush volume based on line type and size. Flush before and after each use.Indications:Cryptogenic stroke (HCC) sodium chloride 0.9% infusion 50 mL/hr, intravenous, Continuous, Starting on Sun12/03/23 at 1045, Pre-Procedure (CV)Indications:Cryptogenic stroke (HCC) New Bag 12/03/2023 12:25 PM CDT documented in this encounter Active and Recently Administered Medications Times are shown in CDT. Scheduled Medication Order 12/01/2023 12/02/2023 12/03/2023 ceFAZolin (ANCEF) 2,000 mg/20 mL in sterile water (premix) 2,000 mg (COMPLETED) 2,000 mg, intravenous, at 400 mL/hr, Administer over 3 Minutes, Once, On Sun12/03/23 at 1045, For 1 dose, Pre-Procedure (CV), Administer within 60 minutes of incision., Indications: Prophylaxis, Surgical 1237 (Given - Provid er: Marie Jules CRNA) sodium chloride 0.9% flush 0.5-20 mL(Linked Group 1) 0.5-20 mL, intra-catheter, Every 8 hours scheduled, First dose on Sun12/03/23 at 1400, Pre-Procedure (CV), Flush volume based on line type and size. 1400 (Due) Continuous Medication Order 12/01/2023 12/02/2023 12/03/2023 sodium chloride 0.9% infusion 50 mL/hr, intravenous, Continuous, Starting on Sun12/03/23 at 1045, Pre-Procedure (CV) 1225 (New Bag - Prov ider: Marie Jules CRNA)1309 (Anesthesia Volume Adjustment - Provider: Marie Jules CRNA)1941 (Due: Stopped) PRN Medication Order 12/01/2023 12/02/2023 12/03/2023 BUPivacaine-EPINEPHrine (MARCAINE with EPI) 0.25 %-1:200,000 preservative free injection (CANCELED) Code/trauma/sedation medication, Starting on Sun12/03/23 at 1254, Intra-Procedure (CV) 1254 (Given - Provid er: Angelica Cochran MD) Carrier Fluids for Secondary Infusion - 0.9% Sodium Chloride(Linked Group 1) 30 mL, intravenous, As needed, For priming tubing and/or flushing, Starting on Sun12/03/23 at 1013, Pre-Procedure (CV), 0-250 ml/hr to flush line after IV infusions when no maintenance IV ordered. Infuse 30mL at the same rate as the secondary infusion. Run as primary IV, not intended for KVO. sodium chloride 0.9% flush 0.5-20 mL(Linked Group 1) 0.5-20 mL, intra-catheter, As needed, line care, Starting on Sun12/03/23 at 1013, Pre-Procedure (CV), Flush volume based on line type and size. Flush before and after each use. Linked Groups Order Group 1: Saline lock IV (CANCELED) Routine, Once (Routine), On Sun12/03/23 at 1014, For 1 occurrence, Pre-Procedure (CV) And sodium chloride 0.9% flush 0.5-20 mLJump to med 0.5-20 mL, intra-catheter, Every 8 hours scheduled, First dose on Sun12/03/23 at 1400, Pre-Procedure (CV), Flush volume based on line type and size. And sodium chloride 0.9% flush 0.5-20 mLJump to med 0.5-20 mL, intra-catheter, As needed, line care, Starting on Sun12/03/23 at 1013, Pre-Procedure (CV), Flush volume based on line type and size. Flush before and after each use. And Carrier Fluids for Secondary Infusion - 0.9% Sodium ChlorideJump to med 30 mL, intravenous, As needed, For priming tubing and/or flushing, Starting on Sun12/03/23 at 1013, Pre-Procedure (CV), 0-250 ml/hr to flush line after IV infusions when no maintenance IV ordered. Infuse 30mL at the same rate as the secondary infusion. Run as primary IV, not intended for KVO. documented in this encounter Orders Medications Ordered That Arnoldo ht Not Have Been Administered Count Last Ordered Date First Ordered Date Carrier Fluids for Secondary Infusion - 0.9% Sodium Chloride 1 12/03/2023 ceFAZolin (ANCEF) 2,000 mg/2 0 mL in sterile water (premix) 2,000 mg 1 12/03/2023 sodium chloride 0.9% flush 0.5-20 mL 2 11/11 sodium chloride 0.9% infusion 1 12/03/2023 Admission Count Last Ordered Date First Orde red Date INITIATE OUTPATIENT IN A BED 1 12/03/2023 Discharge Count Last Ordered Date First Orde red Date DISCHARGE PATIENT 1 12/03/2023 documented in this encounter Care Teams Computer Aided Design Technician Relationship Specialty Start Date End Date Jaden Thakur DO [address] [place] [id number] PCP - General Family Medicine 06/01/23 documented as of this encounter
--- OUTSIDE RECORDS SUMMARY | 2024-03-19 20:53 | XMS_ITS | Encounter Summary ---
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
--- OUTSIDE RECORDS SUMMARY | 2024-03-19 20:53 | XMS_ITS | Encounter Summary ---
Author Organization [facility] Healthcare Address [address] [place] [phone] Care Team Providers Care Video System Repairer Name Role Phone Jaden Thakur DO Primary Care Provide r Reason for Visit * Reason Comments Pain Encounter Details Date Type Department Care Team (Late st Contact Info) Description 11/02/2023 11:45 AM CDT Office Visit [facility] Medical Group Orthopedic and Sports Medicine [address] [place] [phone] Moises Yoon MD [address] [place] [address] DR KAMARA [place] [id number] Superior glenoid labrum lesion of left shoulder, initial encounter (Primary Dx); Left shoulder pain, unspecified chronicity Social History Tobacco Use Types Packs/Day Years [...] on file 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 Gender Identity Not on file Sexual Orientation Not on file documented as of this encounter Last Filed Vital Signs Vital Sign Reading Time Taken Comments Blood Pressure 106/74 11/02/2023 11:54 AM CDT Pulse 75 11/02/2023 11:54 AM CDT Temperature - - Respiratory Rate - - Oxygen Saturation - - Inhaled Oxygen Concentration - - Weight 103.9 kg (229 lb) 11/02/2023 11:54 AM CDT Height 162.6 cm (5' 4 ) 11/02/2023 11:54 AM CDT Body Mass Index 39.31 11/02/2023 11:54 AM CDT documented in this encounter Patient Instructions * Patient Instructions* Kale Wayne ATC - 11/02/2023 11:45 AM CDT Thank you for coming in today. Kale JENSEN , and I are thankful you have trusted us with your care, and hope that you receive EXCELLENT care today! Please do not hesitate to call if you have any questions or concerns at [phone] or send us a message via [employer]. You may receive a phone call or text asking about your care today and we would love to hear your input. We hope your visit was as excellent as possible and we look forward to continuing to provide you with excellent care. documented in this encounter Progress Notes * Moises Yoon MD - 11/02/2023 11:45 AM CDT Images from the original note were not included. NEW PATIENT VISIT Subjective CHIEF COMPLAINT She had concerns including Pain of the Left Shoulder. 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 Pain Assessment Pain Assessment: 0-10 Pain Score: 6 Pain Location: Shoulder Pain Orientation: Left PAST MEDCIAL HISTORY She has a past medical history of Hypertension, Seizure (HCC), Seizure disorder (CMS/HCC) (HCC) (09/25/2023), and Stroke ([facility]). PAST SURGICAL HISTORY She has a past surgical history that includes section. MEDICATIONS She has a current medication list which includes the following prescription(s): aspirin, baclofen, buspirone, cetirizine, cholecalciferol, cyclobenzaprine, duloxetine dr, hydrocodone-acetaminophen, hydroxyzine, levetiracetam, metoprolol tartrate, pantoprazole dr, polyethylene glycol, verapamil sr, and lorazepam. ALLERGIES She is allergic to latex and vancomycin. SOCIAL HISTORY She reports that she has quit smoking. Her smoking use included cigarettes. She has never used smokeless tobacco. No alcohol history on file. FAMILY HISTORY Her family history includes Blood Clot in an other family member; Osteoporosis in an other family member. REVIEW OF SYSTEMS Review of Systems Constitutional: Negative for activity change, appetite change, chills, fever and unexpected weight change. HENT: Negative for congestion, dental problem, ear pain, hearing loss, nosebleeds, tinnitus and voice change. Eyes: Negative for pain and visual disturbance. Respiratory: Negative for apnea, cough, chest tightness and shortness of breath. Cardiovascular: Negative for chest pain, palpitations and leg swelling. Gastrointestinal: Negative for blood in stool, constipation, diarrhea, nausea and vomiting. Endocrine: Negative for cold intolerance and heat intolerance. Genitourinary: Negative for difficulty urinating, hematuria and urgency. Skin: Negative for color change, rash and wound. Allergic/Immunologic: Negative for environmental allergies. Neurological: Negative for dizziness, syncope, numbness and headaches. Hematological: Negative for adenopathy. Does not bruise/bleed easily. Psychiatric/Behavioral: Negative for confusion. The patient is not nervous/anxious and is not hyperactive. Objective PHYSICAL EXAM BP 106/74 Pulse 75 Ht 162.6 cm (5' 4 ) Wt 103.9 kg (229 lb) BMI 39.31 kg/m?? Right shoulder The patient has normal inspection, palpation, range of motion, strength, and stability of the rightshoulder. Left shoulder Inspection Erythema: absent Effusion: absent Atrophy: present Scapulothoracic motion: abnormal Posture, chin forward: abnormal Posture, rounded shoulders: abnormal Palpation Tenderness is present. The patient has tenderness in the biceps tendon and anterior shoulder area(s). Range of motion The patient has reduced range of motion of the left shoulder. The patient has pain with range of motion of the left shoulder. Strength The patient does not have normal strength at baseline. Neurovascular The patient has normal vascular on the left side of their body. Axillary: none and decreased Radial: decreased Ulnar: decreased REVIEW OF X-RAYS/STUDIES/LABS reviewed MRI shows a labral tear also discussed the care with her on the phone Assessment/Plan Consuelo Elliott was seen today for pain. Diagnoses and all orders for this visit: Superior glenoid labrum lesion of left shoulder, initial encounter Left shoulder pain, unspecified chronicity - Cancel: XR Shoulder Left 1 View; Future Procedures PLAN Risks and benefits of the surgery were discussed with the patient. These include but are not limited to bleeding infection damage to surrounding structures including ... DVT, PE, stroke, heart attack, and . Patient understands these risks and agreed to proceed with the surgery as described above. All questions and concerns were addressed with the patient prior to surgical consent being established in the office today. The patient will follow up for surgery. Patient has a complex medical history we discussed arthroscopic labral debridement biceps tenotomy we will have her cleared by her PCP and neurologist she currently does not have motor function in her left upper extremity in the surgery will not improve that hopefully the shoulder debridement wouldhelp her shoulder pain and night pain. If patient is not cleared or safe to proceed with surgery we will refer patient to pain management MIKEY Perez MD documented in this encounter Plan of Treatment Not on file documented as of this encounter Visit Diagnoses Diagnosis Superior glenoid labrum lesion of left shoulder, initial encounter- Primary Left shoulder pain, unspecified chronicity documented in this encounter Care Teams Video System Repairer Relationship Specialty Start Date End Date Jaden Thakur DO [address] [place] [id number] PCP - General Family Medicine 06/01/23 documented as of this encounter
--- OUTSIDE RECORDS SUMMARY | 2024-03-19 20:53 | XMS_ITS | Encounter Summary ---
Author Organization [facility] Healthcare Address [address] [place] [address] Care Team Providers Care Nurses Director Name Role Phone Jaden Thakur DO Primary Care Provide r Reason for Visit * Reason Comments UTI Entered automaticall y based on patient selection in [employer]. 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 C/o 3-6 day h/o increased urinary frequency of urination. Denies dysuria, blood in urine, fevers, abd pain, back pain, increased urinary urgency, cloudy urine or urine with an unusual smell. States it feels like previous UTI's. States she's confident she's not . The patient-submitted questionnaire was assessed for pertinent information and the patient's problem list, medication list, and allergies were reviewed as part of the e-visit. The chart was updated to identify any changes in these areas. Assessment: Diagnosis Plan 1. Acute cystitis without hematuria Plan: Macrobid erx'ed to pharmacy. If any problems or questions or no improvement of symptoms in the nextfew days, please f/u w/ PCP. If symptoms worsen, go to the ED. The patient was given information regarding any new medication(s) prescribed, if applicable, as well as any kcib-fmi-[id number] remedies. She was given instructions regarding follow up and timeframe if symptoms worsen or don???t improve. These instructions were included in the [employer] message reply tothe patient. Patient Instructions were included in the message reply to patient. My total encounter time on 09/20/2023 was 5 minutes which was spent in the activities documented inthe note. New Medications Ordered This Visit nitrofurantoin monohydrate (Macrobid) 100 mg capsule Sig: Take 1 capsule (100 mg total) by mouth 2 (two) times a day for 7 days Dispense: 14 capsule Refill: 0 Crissy Estrella MD documented in this encounter Plan of Treatment Not on file documented as of this encounter Visit Diagnoses Diagnosis Acute cystitis without hematuria- Primary documented in this encounter Care Teams Nurses Director Relationship Specialty Start Date End Date Jaden Thakur DO [address] [place] [id number] PCP - General Family Medicine 06/01/23 documented as of this encounter
--- OUTSIDE RECORDS SUMMARY | 2024-03-19 20:53 | XMS_ITS | Encounter Summary ---
Author Organization 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 Cordero called us to inform that she had a seizure today. This is her first seizure since seenby Dr. Jaffe in June. She was sitting in the chair and talking on phone when she felt weakness in her hand and dropped the phone. She later felt her body stiffened followed by violent shaking of the extremities. This was an unwitnessed event and description was given by Kae Consuelo. She denies any bowel/bladder incontin ence, oral trauma. She denies losing awareness. Stated that this was her typical event she had first time. Although her description of not losing awareness with shaking spell presumably bilateral tonic -clonic is not convincing for an epileptic event, this cannot be ruled out given her prior seizure in the setting of a large CVA. It is possible that she might have remembered the pre or post episodal phase. Considering this as an epileptic event , I would like to increase her Keppra to 1000 mg bid (from 500 mg bid) as she is tolerating well with no side effects. She will continue her Depakote as is (forheadaches). She would benefit from EMU admission, for spell characterization, if she continues to have more seizures. Thanks, Electronically signed by: Manuelito Venegas [Epilepsy Fellow, PGY-5] documented in this encounter Plan of Treatment Not on file documented as of this encounter Visit Diagnoses Not on filedocumented in this encounter Care Teams Ratoprinter Relationship Specialty Start Date End Date Jaden Thakur DO [address] [place] [phone] PCP - General Family Medicine 06/01/23 documented as of this encounter
--- OUTSIDE RECORDS SUMMARY | 2024-03-19 20:53 | XMS_ITS | Encounter Summary ---
Author Organization [facility] Healthcare Address [address] [place] [address] Care Team Providers Care Choir Singer Name Role Phone Jaden Thakur Primary Care Provide r Reason for Referral * Cardiology (Routine) - Closed Specialty Diagnoses / Procedures Referred By Jimena muller Referred To Contact Diagnoses Tachycardia Leg swelling PFO (patent foramen ovale) Endocarditis, unspecified chronicity, unspecified endocarditis type Procedures Transesophageal Echo (SARAH) W Doppler/CF TRANSESOPHAGEAL ECHO (SARAH) W DOPPLER/CF TRANSESOPHAGEAL ECHO (SARAH) W DOPPLER/CF WO CONTRAST TRANSESOPHAGEAL ECHOCARDIOGRAM (SARAH) COMPLETE W/ CONTRAST TRANSESOPHAGEAL ECHO (SARAH) W DOPPLER/CF W CONTRAST TRANSESOPHAGEAL ECHO (SARAH) W LTD DOPPLER/CF WO CONTRAST TRANSESOPHAGEAL ECHOCARDIOGRAM (SARAH) COMPLETE W/ COLOR TRANSESOPHAGEAL ECHO (SARAH) WO DOPPLER/CF W CONTRAST Qasim Ross MD [facility] [address] [place] [address] Phone: tel: fax: [address] [phone] Referral ID Status Reason Start Date Expiration Date Visits Re quested Visits Authorized [id number] Closed 05/28/2023 06/26/2024 1 1 Reason for Visit * Cardiology (Routine) - Closed Specialty Diagnoses / Procedures Referred By Contac t Referred To Contact Diagnoses Tachycardia Leg swelling PFO (patent foramen ovale) Endocarditis, unspecified chronicity, unspecified endocarditis type Procedures Transesophageal Echo (SARAH) W Doppler/CF TRANSESOPHAGEAL ECHO (SARAH) W DOPPLER/CF TRANSESOPHAGEAL ECHO (SARAH) W DOPPLER/CF WO CONTRAST TRANSESOPHAGEAL ECHOCARDIOGRAM (SARAH) COMPLETE W/ CONTRAST TRANSESOPHAGEAL ECHO (SARAH) W DOPPLER/CF W CONTRAST TRANSESOPHAGEAL ECHO (SARAH) W LTD DOPPLER/CF WO CONTRAST TRANSESOPHAGEAL ECHOCARDIOGRAM (SARAH) COMPLETE W/ COLOR TRANSESOPHAGEAL ECHO (SARAH) WO DOPPLER/CF W CONTRAST Qasim Ross MD [address] [facility] [address] [place] [address] Phone: tel: fax: [address] [phone] Referral ID Status Reason Start Date Expiration Date Visits Re quested Visits Authorized [id number] Closed 05/28/2023 06/26/2024 1 1 Encounter Details Date Type Department Care Team (Latest Contact Info) Description 07/09/2023 6:58 AM CDT - 07/09/2023 11:59 PM CDT Hospital Encounter [facility] [address] [place] [phone] Adam Ordaz MD [address] [place] [address] Tachycardia; Leg swelling; PFO (patent foramen ovale); Endocarditis, unspecified chronicity, unspecified endocarditis type Discharge Disposition: Discharge to home or self [...] on file Legal Sex Female 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 Gender Identity Not on file Sexual Orientation Not on file documented as of this encounter Last Filed Vital Signs Vital Sign Reading Time Taken Comments Blood Pressure 121/68 07/09/2023 11:15 AM CDT Pulse 73 07/09/2023 11:15 AM CDT Temperature 36.5 ??C (97.7 ??F) 07/09/2023 10:28 AM C DT Respiratory Rate 14 07/09/2023 11:15 AM CDT Oxygen Saturation 95% 07/09/2023 11:15 AM CDT Inhaled Oxygen Concentration - - Weight 102.1 kg (225 lb) 07/09/2023 7:35 AM CDT Height 162.6 cm (5' 4 ) 07/09/2023 7:35 AM CDT Body Mass Index 38.62 07/09/2023 7:35 AM CDT documented in this encounter Discharge Instructions * Discharge Instructions* Anne Marie Richardson RN - 07/09/2023 10:34 AM CDT Discharge Instructions For Transesophageal Echocardiogram (SARAH) After the procedure your throat may be sore for a few hours. If you experience trouble swallowing, stiff neck, abdominal pain, chest pain, vomiting of blood, or black or bloody stools, contact your physician immediately. If you can swallow water easily, you can eat and drink normally. Do not drive for 24 hours Do not make any legal decisions for 24 hours Do not operate potentially dangerous machinery for 24 hours Do not drink alcohol for 24hours Rest at home with activity as tolerated Take medications that are prescribed by your physician as directed For routine questions or concerns regarding your care after your SARAH please feel free to call us. From 7am-5pm M-F call our Outpatient Nurse Coordinators at [phone]. If you need to speak to someone after 5pm please call [facility] at [phone] and ask the crushing machine operator to page the Cardiac It Technician Fellow associate professor of communication. documented in this encounter Medications at Time [...] a day 60 tablet 5 06/11/2023 09/19/2023 hydrOXYzine (VISTARIL) 25 mg capsule Take 1 capsule (25 mg total) by mouth 3 (three) times a day as needed for itching 12/18/2023 levETIRAcetam (KEPPRA) 500 mg tablet Take 1 tablet (500 mg total) by mouth 2 (two) times a day 60 tablet 11 06/14/2023 09/03/2023 verapamiL (CALAN) 40 mg tablet Take 125 mg by mouth every 8 (eight) hours 12/14/2022 09/25/2023 documented as of this encounter Discharge Disposition Disposition Code Departure Means Destination Discharge to home or self care documented in this encounter Nursing Notes * Anne Marie Richardson, AMBROSE - 07/09/2023 11:30 AM CDT Consuelo Jimenez s/p SARAH, alert and oriented x4, VSS. Pt has been eating and drinking, tolerating well. SARAH Doctor was at bedside and talked to patient and family about the procedure findings. Pt ambulated in room with AFO brace, gait belt and help of to wheelchair with a steady gait. IV removed with tip intact, coban applied. AVS reviewed and signed by patient, all belongings returned to patient. Patient discharged via wheelchair per Dr. White order with responsible caregiver . documented in this encounter Miscellaneous Notes * Pre-Procedure Note - Farooq White MD - 07/09/2023 8:30 AM CDT Images from the original note were not included. SARAH Pre-evaluation History/Clinical Summary: 42-year-old female with a history of CVA in 2022 c/b Cerebral Edema s/p Cranioplasty , HLD, HTN, and SARAH at OSH with questionable vegetation but negative blood cultures. SARAH Indication: SARAH requested to re-evaluate for vegetation or thrombus. Decisional capacity to consent for SARAH? yes Prior SARAH? yes - OSH 10/23/2022 Details of prior SARAH: Prior TTE? yes - OSH on 01/05/2023 Details of prior TTE: Echo 01/05/23 at [facility] Left Ventricle: Left ventricle size is normal. Normal wall thickness. Normal systolic function with a visually estimated EF of 55 - 60%. Right Ventricle: Right ventricle size is normal. Normal systolic function. Aortic Valve: Valve structure is trileaflet. Mildly [...] The pericardium is normal. No pericardial effusion. 1) Anesthesia/Sedation Risks: Prior complications with sedation or anesthesia: no Loose teeth or dentures: no EF <30%, RV dysfunction, or recent shock: no MANUEL or severe lung disease: no ASA: Per Anesthesia 2) Bleeding Risks: Recent bleeding or contraindications to anticoagulation: no Current anticoagulation: none No results found for: INR No results found for: PTT No results found for: LABPLAT 3) GI Risks: Difficulty swallowing: no Prior surgery or known disease of esophagus or stomach: no Review of Systems: Review of systems as per HPI and, otherwise all other systems are negative. PMHX: has a past medical history of Hypertension, Seizure (HCC), and Stroke (HCC). PSHX: has a past surgical history that includes section. Family Hx: family history includes Osteoporosis in an other family member. Social Hx: reports that she has quit smoking. Her smoking use included cigarettes. She has never used smokeless tobacco. No alcohol history on file. Allergies: Allergies Allergen Reactions Latex Rash Vancomycin Other (See comments) High fevers Home Medications: HOME MEDICATIONS : aspirin 325 mg tablet baclofen (LIORESAL) 5 mg tablet busPIRone (BUSPAR) 5 mg tablet cetirizine 10 mg tablet,disintegrating cholecalciferol 25 mcg (1,000 unit) tablet cyclobenzaprine (FLEXERIL) [address] (DEPAKOTE) 250 mg EC tablet DULoxetine DR (CYMBALTA) 60 mg capsule HYDROcodone-acetaminophen (NORCO) 10-325 mg per tablet hydrOXYzine (VISTARIL) 25 mg capsule levETIRAcetam (KEPPRA) 500 mg tablet metoprolol tartrate (LOPRESSOR) 25 mg immediate release tablet nitrofurantoin monohydrate (Macrobid) [address] (PROTONIX) 40 mg EC tablet verapamiL (CALAN) 40 mg tablet polyethylene glycol (MIRALAX) 17 gram packet Current Medications: sodium chloride 0.9%, 0.5-20 mL, intra-catheter, Q8H SENDY sodium chloride 0.9%, 50 mL/hr, Last Rate: 50 mL/hr (07/09/23 0825) Physical Exam: General appearance: no acute distress HEENT: NCAT, MMM, anicteric Lungs: CTAB, no w/r/r, non-labored Heart: RRR, S1, S2 normal, no murmur, rub or gallop. JVP not elevated, no LE edema Abdomen: soft, NT/ND; bowel sounds normal Extremities: extremities normal, warm and well-perfused, equal pulses Skin: warm and dry Neurologic: No abnormal movements, non-focal exam Psych: Normal mood and affect Labs and Imaging: Reviewed Plan: Proceed with SARAH Farooq White MD Clinical Radiologist Time: 8:33 AM Date: 07/09/2023 Cosigned by Fazal Arrington MD at 07/09/2023 8:36 AM CDT documented in this encounter Plan of Treatment Not on file documented as of this encounter Procedures Procedure Name Priority Date/Time Associated Diagnosis Comments TRANSESOPHAGEAL ECHO (SARAH) W DOPPLER/CF WO CONTRAST Routine 07/09/2023 10:22 AM CDT Tachycardia Leg swelling PFO (patent foramen ovale) Endocarditis, unspecified chronicity, unspecified endocarditis type POCT HCG, URINE Routine 07/09/2023 8:27 AM CDT documented in this encounter Results * TRANSESOPHAGEAL ECHO (SARAH) W DOPPLER/CF WO CONTRAST (07/09/2023 10:22 AM CDT) Anatomical Region Laterality Modality Echocardiography 07/09/2023 8:30 AM CDT Narrative 07/11/2023 9:54 AM CDT Patient name: Consuelo Jimenez Date of test: 07/09/2023 Date of : 1980 (F) Hospital #: [id number] ?Location: [facility] Cardiac Diagnostic Lab Interpreted by: Fazal Arrington MD. [employer] Mud Analysis Captain: Farooq White MD RN: Reason for Test: Concern for AV mass Study quality: Technically good Referring Physician: QASIM ROSS MD Contrast Agent: Aortic valve: tricuspid, and is Normal, and the motion Normal Aortic root: Normal ? Aortic Arch: Normal Ascending Aorta: Normal ? Descending Aorta: Normal Pulmonic valve: Normal ? Pulmonary Artery: Normal Pulmonary vein: Normal Mitral valve: Normal, motion Normal, and annulus is Normal Tricuspid valve: Normal, Pulmonic valve: Normal Valvular vegetation: none seen, Mass/Thrombinone seen LA Appendage: Normal Wall Motion Scoring (1=Normal 2=Hypo 3=Akinetic 4=Dyskin. 5=Aneurysm 0=Not visualized) Short [place]-Gastric:=1 S=1 I=1 P=1 L=1 A=1 Long [place]-Gastric:BP=1 BA=1 MP=1 MA=1 AP=1 AA=1 Chamber Dimensions: RA: Normal LA: Normal RV: Normal LV: Normal LV function: Normal left ventricular systolic function RV function: Normal Pericardium: No pericardial effusion seen Diastolic function: ??Atrial Septum: Normal Wall Thickness: RV: Normal LV: Normal Sedation/Tolerance: ??Sedation: SARAH performed with intravenous conscious sedation. ??Meds Admin: ?Propofol 353 ??Tolerance: Patient tolerated procedure without difficulty. Doppler/CF results Aortic Value - Regurgitation: No AR seen Mitral Valve - Regurgitation: No MR seen Aortic Value - Stenosis: no Mitral Valve - Stenosis: no MS Aortic Value - Area: Mitral Value - Area: Aortic Value - Pressure Gradient: Mitral Value - Pressure Gradient: Aortic Value - Pressure Gradient - Peak: Tricuspid: normal TV PA Pressure: MV ERO: ??cm2 Regurg. Volume: ??mL/beat Regurg. Fraction: 0 % Complication: None Doppler/CF comments No AR seen, No MR seen, no , no MS, normal TV, normal PV. ? SARAH Summary ? Farooq White MD performed the SARAH probe placement with Fzaal Arrington MD. present. Normal LV and RV size and systolic function. Normal LA and RA sizes. Normal AV without vegetations or masses visualized. No significant valve dysfunction. MADELEINE is free of thrombus with normal Doppler emptying velocities. No color flow Doppler evidence of PFO. No pericardial effusion. Visualized portions of aorta are without significant atheroma. 3D Imaging: This study was supervised and interpreted by Fazal Arrington MD. Confirmed on ??07/11/2023 - 09:54:08 by Faazl Arrington MD. ?? Clinical Radiologist: Farooq White MD By signing this report, the attending research agricultural engineer certifies that he or she has personally supervised and interpreted the echocardiogram and has reviewed and or edited and agrees with the written comments contained within the report. Procedure Fazal Cat MD - 07/11/2023 Patient name: Consuelo Jimenez Date of test: 07/09/2023 Date of : 1980 () [facility] #: 0 Location: [facility] Cardiac Diagnostic Lab Interpreted by: Fazal Arrington MD. [employer] Mud Analysis Captain: Farooq White MD RN: Reason for Test: Concern for AV mass Study quality: Technically good Referring Physician: QASIM ROSS MD Contrast Agent: Aortic valve: tricuspid, and is Normal, and the motion Normal Aortic root: Normal Aortic Arch: Normal Ascending Aorta: Normal Descending Aorta: Normal Pulmonic valve: Normal Pulmonary Artery: Normal Pulmonary vein: Normal Mitral valve: Normal, motion Normal, and annulus is Normal Tricuspid valve: Normal, Pulmonic valve: Normal Valvular vegetation: none seen, Mass/Thrombinone seen LA Appendage: Normal Wall Motion Scoring (1=Normal 2=Hypo 3=Akinetic 4=Dyskin. 5=Aneurysm 0=Not visualized) Short [place]-Gastric:=1 S=1 I=1 P=1 L=1 A=1 Long [place]-Gastric:BP=1 BA=1 MP=1 MA=1 AP=1 AA=1 Chamber Dimensions: RA: Normal LA: Normal RV: Normal LV: Normal LV function: Normal left ventricular systolic function RV function: Normal Pericardium: No pericardial effusion seen Diastolic function: Atrial Septum: Normal Wall Thickness: RV: Normal LV: Normal Sedation/Tolerance: Sedation: SARAH performed with intravenous conscious sedation. Meds Admin: Propofol 353 Tolerance: Patient tolerated procedure without difficulty. Doppler/CF results Aortic Value - Regurgitation: No AR seen Mitral Valve - Regurgitation: No MR seen Aortic Value - Stenosis: no Mitral Valve - Stenosis: no MS Aortic Value - Area: Mitral Value - Area: Aortic Value - Pressure Gradient: Mitral Value - Pressure Gradient: Aortic Value - Pressure Gradient - Peak: Tricuspid: normal TV PA Pressure: MV ERO: cm2 Regurg. Volume: mL/beat Regurg. Fraction: 0 % Complication: None Doppler/CF comments No AR seen, No MR seen, no , no MS, normal TV, normal PV. SARAH Summary Farooq White MD performed the [...] portions of aorta are without significant atheroma. 3D Imaging: This study was supervised and interpreted by Fazal Arrington MD. Confirmed on 07/11/2023 - 09:54:08 by Fazal Arrington MD. Clinical Radiologist: Farooq White MD By signing this report, the attending research agricultural engineer certifies that he or she has personally supervised and interpreted the echocardiogram and has reviewed and or edited and agrees with the written comments contained within the report. us Qasim Ross MD CV ECHO PROCEDURES Final Resul t * POCT hCG, urine (07/09/2023 8:27 AM CDT) HCG, ur, POC Negative Negative Lot Number [id number] QC Backgroud Clear Acceptable QC Control Line Acceptable Urine 07/09/2023 8:27 AM CDT Adam Ordaz MD POINT OF CARE TEST O RDERABLES Final Result documented in this encounter Visit Diagnoses Diagnosis Tachycardia Unspecified tachycardia Leg swelling Swelling of limb PFO (patent foramen ovale) Ostium secundum type atrial septal defect Endocarditis, unspecified chronicity, unspecified endocarditis type documented in this encounter Administered Medications Inactive Administered Medications - up to 3 most recent administrations Medication Order MAR Action Action Date Dose Rate Site sodium chloride 0.9% infusion 50 mL/hr, intravenous, Continuous, Starting on Sun07/09/23 at 0745 Rate/Dose Change 07/09/2023 10:20 AM CDT 50 mL/hr Rate/Dose Change 07/09/2023 9:57 AM CDT 150 mL/ hr Rate/Dose Verify 07/09/2023 9:47 AM CDT 50 mL/h r documented in this encounter Orders Medications Ordered That Arnoldo ht Not Have Been Administered Count Last Ordered Date First Ordered Date Carrier Fluids for Secondary Infusion - 0.9% Sodium Chloride 1 07/09/2023 sodium chloride 0.9% flush 0.5-20 mL 2 06/11 Discharge Count Last Ordered Date First Orde red Date DISCHARGE PATIENT 1 07/09/2023 documented in this encounter Care Teams Choir Singer Relationship Specialty Start Date End Date Jaden Thakur DO [address] [place] [id number] PCP - General Family Medicine 06/01/23 documented as of this encounter
--- OUTSIDE RECORDS SUMMARY | 2024-03-19 20:53 | XMS_ITS | Encounter Summary ---
Author Organization Formerly [facility] Address [address] [place] [address] Care Team Providers Care Exhibition Designer Name Role Phone Jaden Thakur DO Primary Care Provide r Encounter Details Date Type Department Care Team (Late st Contact Info) Description 07/09/2023 9:47 AM CDT Anesthesia Event [facility] [address] [place] [address] Adam Ordaz MD [address] [place] [address] Joni Kinney MD [address] [place] [address] Anesthesia Record Procedure Summary Procedure Name Responsible Anesthesiologist Anesthesia Start Time Anesthesia Stop Time TRANSESOPHAGEAL ECHO (SARAH) W DOPPLER/CF Adam Ordaz MD 07/09/23 0947 07/09/23 1031 Events Date Time Event Comment 07/09/2023 0947 An Start 0950 An Start Data 0955 Start Supplemental O2 0958 An Induction The patient was reevaluated immediately before moderate or deep sedation use and before anesthesia induction. 1003 Anesthesia Ready 1024 an stop data 1031 Handoff to RN I completed my handoff to the receiving nurse during which we: 1. Patient identified 2. Responsible provider identified 3. Pertinent medical history reviewed 4. Procedure type and surgical course discussed 5. Intraoperative anesthetic management and any significant issues discussed 6. Expectations and concerns for postop period discussed 7. Questions solicited from receiving nurse 8. Patient disposition at the time of handoff: No value filed. 1031 An Stop Meds Name Total propofol 130 mg propofol 232.79 mg phenylephrine 100 mcg/mL 100 mcg sodium chloride 0.9% infusion 143.33 mL * Agents Name O2% N2O O2 * Blood No blood administrations on file. 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 Gender Identity Not on file Sexual Orientation Not on file documented as of this encounter OR Notes * Anesthesia Postprocedure Evaluation - Anne Marie Anne CRNA - 07/09/2023 10:31 AM CDT Patient: Consuelo Jimenez Procedure Summary Date: 07/09/23 Room / Location: [facility] Anesthesia Start: 946 Anesthesia Stop: 1030 Procedure: TRANSESOPHAGEAL ECHO (SARAH) W DOPPLER/CF Diagnosis: Tachycardia Leg swelling PFO (patent foramen ovale) Endocarditis, unspecified chronicity, unspecified endocarditis type Scheduled Providers: Adam Ordaz MD Responsible Provider: Adam Ordaz MD Anesthesia Type: MAC ASA Status: 4 Anesthesia Type: MAC Last vitals BP 114/57 Pulse 71 Temp 36.5 ??C (97.7 ??F) (Axillary) Resp 13 SpO2 99% Anesthesia Post Evaluation Patient location during evaluation: PACU Patient participation: complete - patient participated 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 Cosigned by Adam Ordaz MD at 07/11/2023 10:11 AM CDT * Anesthesia Preprocedure Evaluation - Adam Ordaz MD - 07/09/2023 8:52 AM CDT Images from the original note were not included. Anesthesia Evaluation Consuelo Jimenez is a 42 y.o. 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 Allergies Allergen Reactions Latex Rash Vancomycin Other (See comments) High fevers Med List Status: Nurse Complete Set By: Anne Marie Richardson RN at 07/09/2023 8:14 AM Taking? Last Dose Start Date End Date Provider aspirin 325 mg tablet 07/09/2023 -- -- ProviderArmand MD baclofen (LIORESAL) 5 mg tablet 07/09/2023 12/14/22 -- Provider, HistoricalMD busPIRone (BUSPAR) 5 mg tablet 07/09/2023 06/29/23 -- Provider, HistoricalMD cetirizine 10 mg tablet,disintegrating 07/08/2023 -- -- Provider, HistoricalMD cholecalciferol 25 mcg (1,000 unit) tablet 07/08/2023 12/14/22 -- Provider, HistoricalMD cyclobenzaprine (FLEXERIL) 5 mg tablet 07/09/2023 12/14/22 -- Provider, HistoricalMD divalproex (DEPAKOTE) 250 mg EC tablet 07/09/2023 06/11/23 12/08/23 Manuelito Venegas MD Take 1 tablet (250 mg total) by mouth 2 (two) times a day DULoxetine DR (CYMBALTA) 60 mg capsule 07/09/2023 02/15/23 -- Provider, MD Armand HYDROcodone-acetaminophen (NORCO) 10-325 mg per tablet 07/09/2023 06/12/23 -- Provider, HistoricalMD hydrOXYzine (VISTARIL) 25 mg capsule 07/08/2023 -- -- Provider, HistoricalMD levETIRAcetam (KEPPRA) 500 mg tablet 07/09/2023 06/14/23 -- Gonzalez Jaffe MD Take 1 tablet (500 mg total) by mouth 2 (two) times a day metoprolol tartrate (LOPRESSOR) 25 mg immediate release tablet 07/09/2023 12/14/22 -- Provider, HistoricalMD nitrofurantoin monohydrate (Macrobid) 100 mg capsule 07/08/2023 07/01/23 07/09/23 Crissy Estrella MD Take 1 capsule (100 mg total) by mouth 2 (two) times a day for [address] (PROTONIX) 40 mg EC tablet 07/08/2023 03/21/23 -- Provider, MD Armand polyethylene glycol (MIRALAX) 17 gram packet More than a month 12/14/22 -- Provider, HistoricalMD verapamiL (CALAN) 40 mg tablet 07/08/2023 12/14/22 -- Provider, MD Armand Current Outpatient Medications: aspirin 325 mg tablet baclofen (LIORESAL) 5 [...] polyethylene glycol (MIRALAX) 17 gram packet Current Facility-Administered Medications: Carrier Fluids for Secondary Infusion - 0.9% Sodium Chloride, 30 mL, intravenous, PRN sodium chloride 0.9% flush 0.5-20 mL, 0.5-20 mL, intra-catheter, Q8H SENDY sodium chloride 0.9% flush 0.5-20 mL, 0.5-20 mL, intra-catheter, PRN sodium chloride 0.9% infusion, 50 mL/hr, intravenous, Continuous, Last Rate: 50 mL/hr at 07/09/23 0825, 50 mL/hr at 07/09/23 0825 Social History Tobacco Use Smoking Status Former Types: Cigarettes Smokeless Tobacco Never Alcohol Use: Not At Risk (04/10/2019) Received from [facility] AUDIT-C Frequency of Alcohol Consumption: Monthly or less Average Number of Drinks: 1 or 2 Frequency of Binge Drinking: Never Substance and Sexual Activity Drug Use Not on file Family History Problem Relation Age of Onset Osteoporosis Other Vitals: 07/09/23 0735 BP: 120/56 Pulse: 80 Resp: 15 Temp: 36.8 ??C (98.2 ??F) SpO2: 96% PT: No results found for requested labs within last 30 days. INR: No results found for requested labs within last 30 days. APTT: No results found for requested labs within last 30 days. Hgb A1C: No results found for requested labs within last 30 days. CBC RBC: No results found for requested labs within last 30 days. RDW: No results found for requested labs within last 30 days. MCHC: No results found for requested labs within last 30 days. MCH: No results found for requested labs within last 30 days. MCV: No results found for requested labs within last 30 days. Hct: No results found for requested labs within last 30 days. Hgb: No results found for requested labs within last 30 days. WBC: No results found for requested labs within last 30 days. MPV: No results found for requested labs within last 30 days. Platelets: No results found for requested labs within last 30 days. RDW CV: No results found for requested labs within last 30 days. RDW Sd: No results found for requested labs within last 30 days. BMP Glucose: No results found for requested labs within last 30 days. Calcium: No results found for requested labs within last 30 days. Sodium: No results found for requested labs within last 30 days. Potassium: No results found for requested labs within last 30 days. CO2: No results found for requested labs within last 30 days. Chloride: No results found for requested labs within last 30 days. BUN: No results found for requested labs within last 30 days. Creatinine: No results found for requested labs within last 30 days. STOP-Bang Total Score: 3 DOS Physical Exam Medical history, medications, and allergies reviewed. Attestation: With today's edits, I endorse the the findings of the H&P dated: 07/09/2023. Airway Exam: Mallampati: II TM distance: >4 Cardiovascular Exam: Rate: regular Rhythm: regular Pulmonary Exam: LCTA EENT Exam: trachea midline Current state: Patient's current state is cooperative. Anesthesia Plan ASA 4 My patient is approved for the Anesthesia Controlled Medication protocol when under care of a ASSISTANT PROFESSOR OF PHILOSOPHY Planned anesthesia: MAC Induction: Induction: intravenous. Postoperative Plan: No plan for postoperative opioid use. No postoperative mechanical ventilation intended. Informed Consent: Discussed plan with ASSISTANT PROFESSOR OF PHILOSOPHY. Anesthesia plan and risks discussed with patient. Consent and Attending signature: I and/or my designee have discussed the anesthesia plan, benefits, possible alternatives, parental presence at time of induction (if indicated), and clinically relevant risks that may include dental injury, unintentional awareness, and/or other complications. The patient and/or parent/legal guardian understand, and agree to proceed. All questions answered. documented in this encounter Plan of Treatment Not on file documented as of this encounter Visit Diagnoses Not on filedocumented in this encounter Administered Medications Inactive Administered Medications - up to 3 most recent administrations Medication Order MAR Action Action Date Dose Rate Site phenylephrine (NAHID-SYNEPHRINE) 1 mg/10 mL (100 mcg/mL) in sodium chloride 0.9% (premix) intravenous, As needed, Starting on Sun07/09/23 at 0959, Anesthesia Intra-op Given 07/09/2023 9:59 AM CDT 100 mcg propofoL (DIPRIVAN) 10 mg/mL IV intravenous, Continuous PRN, Starting on Sun07/09/23 at 0958, Anesthesia Intra-op New Bag 07/09/2023 9:58 AM CDT 120 mcg/kg/min 73.512 mL/hr propofoL (DIPRIVAN) 10 mg/mL IV intravenous, As needed, Starting on Sun07/09/23 at 0958, Anesthesia Intra-op Bolus 07/09/2023 10:02 AM CDT 20 mg Bolus 07/09/2023 10:01 AM CDT 20 mg Bolus 07/09/2023 10:00 AM CDT 20 mg sodium chloride 0.9% infusion 50 mL/hr, intravenous, Continuous, Starting on Sun07/09/23 at 0745 Rate/Dose Change 07/09/2023 10:20 AM CDT 50 mL/hr Rate/Dose Change 07/09/2023 9:57 AM CDT 150 mL/ hr Rate/Dose Verify 07/09/2023 9:47 AM CDT 50 mL/h r documented in this encounter Care Teams Exhibition Designer Relationship Specialty Start Date End Date Jaden Thkaur DO [address] [place] [id number] PCP - General Family Medicine 06/01/23 documented as of this encounter
--- OUTSIDE RECORDS SUMMARY | 2024-03-19 20:53 | XMS_ITS | Encounter Summary ---
Author Organization [facility] Healthcare Address [address] [place] [address] Care Team Providers Care Director Of Global Talent Name Role Phone Jaden Thakur DO Primary Care Provide r Reason for Visit * Auth/Cert (Routine) Specialty Diagnoses / Procedures Referred By Jimena t Referred To Contact Diagnoses Cryptogenic stroke (HCC) Cryptogenic stroke (HCC) [I63.9] Procedures IMPLANTABLE CARDIAC EVENT MONITOR INSERTION [id number] Referral ID Status Reason Start Date Expiration Date Visits Re quested Visits Authorized [id number] 1 1 Encounter Details Date Type Department Care Team (Latest Contact Info) Description 12/03/2023 9:55 AM CDT - 12/03/2023 3:10 PM CDT Hospital Encounter [facility] [address] [place] [address] Angelica Cochran MD [address] [address] Cryptogenic stroke (HCC) Discharge Disposition: Discharge to home or [...] on file 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 Gender Identity Not on file Sexual Orientation Not on file documented as of this encounter Last Filed Vital Signs Vital Sign Reading Time Taken Comments Blood Pressure 129/61 12/03/2023 2:45 PM CDT Pulse 101 12/03/2023 2:45 PM CDT Temperature 36.7 ??C (98.1 ??F) 12/03/2023 10:42 AM C DT Respiratory Rate 20 12/03/2023 2:45 PM CDT Oxygen Saturation 96% 12/03/2023 2:45 PM CDT Inhaled Oxygen Concentration - - Weight 108.9 kg (240 lb) 12/03/2023 10:42 AM CDT Height 162.6 cm (5' 4 ) 12/03/2023 10:42 AM CDT Body Mass Index 41.2 12/03/2023 10:42 AM CDT documented in this encounter Discharge Instructions * Discharge Instructions* Angelica Cochran MD - 12/03/2023 1:36 PM CDT Electrophysiology Service [facility] Implantable Loop Recorder/Implantable Cardiac Monitopr Discharge Instructions [...] Additional Instructions Notify Dr. Cochran's office at [phone] if fever, redness, drainage or swelling at your device site. Please call [phone] if you need to change your follow-up [...] daily baclofen (LIORESAL) 5 mg tablet Take 2 [...] cryptogenic. b. Status post thrombolytic [facility] at [facility] with 1 hour of last known [...] Use: Not At Risk (04/10/2019) Received from [facility], [facility] AUDIT-C Frequency of Alcohol Consumption: Monthly or [...] the procedure with the patient, which include CT CVA DVT PE valve vessel damage lead and generator failure recall, bleeding, infection, tamponade, PNTX, hemothorax, etc I have discussed the in-person and remote follow-up recommendations with the possibility of required co-pays Questions answered Consent signed NPO after MN IV pain meds prior to transfer to procedure table; discussed with Dr Robles documented in this encounter Nursing Notes * Trveor Soto RN - 12/03/2023 3:36 PM CDT Patient returns [...] 1:24 PM CDT IMPLANTATION OF IMPLANTABLE LOOP RECORDER/KNOCKER OFF Patient Name:Consuelo Jimenez Patient date of : 1980 Date of Procedure: ??12/03/2023 OPERATORS: 1. Angelica Cochran MD [facility] PROCEDURES: 1. Implantation of ??[employer] LUX-Dx2 M312 SN [id number] UBD 02-22-2025 TOTAL CONTRAST: 0 cc TOTAL [...] the usual fashion. The ILR is a [employer] LUX-Dx2 M312 SN [id number] UBD 02-22-2025 The incision was sutured closed in 4-0 Vicryl. ??Steri strips were paced over the incision and a sterile dressing was placed. The patient tolerated the procedure well without any complications. The patient was returned to the [facility] in stable condition. Sponge needle and instrument counts were correct x2 IMPLANT INFORMATION Generator: [employer] LUX-Dx2 M312 SN [id number] UBD 02-22-2025 IMPLANT TESTING: R wave 0.3 mV P waves clearly visible PROGRAMMING: Tachycardia detection 170 bpm for 5 seconds Asystole 3 seconds day; 5 sec nighttime Bradycardia 40 bpm for 1 second AF detection ON 4 minute duration CONCLUSION: Successful implantation of a [employer] LUX-Dx2 M312 SN [id number] UBD 02-22-2025 RECOMMENDATIONS: Remove dressing in three days No shower for 5 days Resume outpatient meds as scheduled DC to Home at 1500 Leave steristrips ON Attestation I was present for the entire procedure and prepared this report. Angelica Cochran MD [facility] ?? us Angelica Cochran MD CV ELECTROPHYSIOLOGY PROCS Fin al Result * eGFR (12/03/2023 10:14 AM CDT) [facility] eGFR >90 >=60 mL/min/1. 73 m2 Comment: [...] MD LAB BLOOD ORDERABLES Final Res ult Performing Organization Address City/[facility]/ZIP Co de Phone Number [facility] Department [place] [address] * Urine culture Urine (12/03/2023 10:14 AM CDT) Report Final Report: Less than 100,000 colonies/mL (clinically insignificant growth based on current clinical standards) Organism (CLINICALLY INSIGNIFICANT GROWTH [facility] Urine 12/03/2023 10:1 4 AM CDT 12/03/2023 12:16 PM CDT Narrative [facility] - 12/04/2023 3:30 PM CDT Urine culture reflexed based upon urinalysis results. Testing performed by [facility] Microbiology Laboratory ([phone]) Angelica Cochran MD LAB MICROBIOLOGY - GENERAL ORD ERABLES Final Result [facility] Department [place] [address] * (ABNORMAL) Urinalysis, microscopic only (12/03/2023 10:14 AM CDT) WBC, ur 11-20(A) 0 - 5 /HPF RBC, ur 0-2 0 - 2 /HPF [facility] Epithelial cells, squamous, ur 21-50(A) 0 - 5 /HPF [facility] Comment:Suggestive of contam ination. Consider recollection by clean catch. Bacteria, ur Trace(A) [facility] Mucous, ur Present(A) [facility] Culture Reflex Comment Reflex to urine culture will be performed. [facility] Urine 12/03/2023 10:1 4 AM CDT 12/03/2023 11:19 AM CDT us Angelica Cochran MD LAB URINE ORDERABLES Final Res ult [facility] Department [place] [address] * (ABNORMAL) Urinalysis reflex to microscopic and culture Urine (12/03/2023 10:14 AM CDT) Color, ur Yellow Yellow Clarity, ur Cloudy(A) Clear [facility] Specific gravity, ur 1.030 1.003 - 1.030 [facility] pH, urine 6.5 [facility] Comment: Interpretive Data ? Urine pH is affected by diet, medications, systemic acid-base disturbances, and renal tubular function. ??pH may affect urinary stone formation. ??For example, urine pH below 6.0 may help reduce the tendency for calcium phosphate stones and pH greater than 6.0 may reduce the tendency for uric acid stone formation. Source: [facility] [employer] Current Interpretive Data was last revised on 2017 Protein, ur ql Trace Negative [facility] Glucose, ur ql Negative Negative [facility] Ketones, ur 1+(A) Negative [facility] Bilirubin, ur Negative Negative [facility] Blood, ur Negative Negative [facility] Urobilinogen, ur 2.0(A) <2.0 mg/dL [facility] Nitrite, ur Negative Negative [facility] Leukocyte esterase, ur 2+(A) Negative [facility] UA reflex comment Reflex to microscopic UA will be performed. [facility] Urine 12/03/2023 10:1 4 AM CDT 12/03/2023 11:19 AM CDT Angelica Cochran MD LAB MICROBIOLOGY - GENERAL ORD ERABLES Final Result [facility] Department [place] [address] * (ABNORMAL) CBC without differential (12/03/2023 10:14 AM CDT) WBC 5.8 3.8 - 9.9 K/cumm Hgb 12.6 11.9 - 15.5 g/dL [facility] Hct 37.7 35.6 - 45.5 % [facility] Plt 319 150 - 400 K/cumm [facility] MPV 10.6 9.1 - 12.3 fL [facility] RBC 4.06 3.90 - 5.20 M/cumm [facility] MCV 92.9 81.3 - 96.4 fL [facility] MCH 31.0 27.1 - 33.3 pg [facility] MCHC 33.4 32.3 - 35.7 g/dL [facility] RDW CV 14.5 11.1 - 14.9 % [facility] RDW SD 49.0(H) 35.7 - 48.1 fL [facility] NRBC abs 0.00 0.00 - 0.01 K/cumm [facility] Blood 12/03/2023 10:1 4 AM CDT 12/03/2023 11:19 AM CDT Narrative [facility] - 12/03/2023 11:45 AM CDT If most recent labs were drawn prior to 4 AM, draw only prior to initiating procedure. Angelica Cochran MD LAB BLOOD ORDERABLES Final Res ult [facility] Department [place] [address] * (ABNORMAL) Basic metabolic panel (12/03/2023 10:14 AM CDT) Sodium 136 135 - 145 mmol/L Potassium, pl 4.1 3.3 - 4.9 mmol/L [facility] Chloride 100 97 - 110 mmol/L [facility] CO2 23 22 - 32 mmol/L [facility] Anion gap 13 2 - 15 mmol/L [facility] BUN 10 6 - 25 mg/dL [facility] Creatinine 0.59(L) 0.60 - 1.10 mg/dL [facility] Glucose 105 70 - 199 mg/dL [facility] Comment: Interpretive Data Fasting glucose >/= [...] 2022. Calcium 9.0 8.5 - 10.3 mg/dL [facility] Blood 12/03/2023 10:1 4 AM CDT 12/03/2023 11:19 AM CDT us Angelica Cochran MD LAB BLOOD ORDERABLES Final Res ult Performing Organization Address [facility]/ZIP Co de Phone Number [facility] Department [place] [address] documented in this encounter Visit Diagnoses Diagnosis Cryptogenic stroke (HCC)- Primary Cryptogenic stroke (HCC) documented in this encounter Admitting Diagnoses Diagnosis Cryptogenic stroke (HCC) documented in this encounter Administered Medications Inactive Administered Medications - up to 3 most recent administrations Medication Order MAR Action Action Date Dose Rate Site Carrier Fluids for Secondary Infusion - 0.9% [...] Count Last Ordered Date First Ordered Date BUPivacaine-EPINEPHrine (MAR CARROLL with EPI) 0.25 %-1:200,000 preservative free injection 1 12/03/2023 Carrier Fluids for Secondary Infusion - 0.9% [...] 12/03/2023 documented in this encounter Care Teams Director Of Global Talent Relationship Specialty Start Date End Date Jaden Thakur DO [address] [place] [phone] PCP - General Family Medicine 06/01/23 documented as of this encounter
--- OUTSIDE RECORDS SUMMARY | 2024-03-19 20:53 | XMS_ITS | Encounter Summary ---
Author Organization [facility] Healthcare Address [address] [place] [address] Care Team Providers Care Pit Worker Power Shovel Name Role Phone Jaden Thakur DO Primary Care Provide r Encounter Details Date Type Department Care Team (Late st Contact Info) Description 07/01/2023 Patient Self-Triage [facility] HealthCare/ [facility] [place] [address] Mychart, Generic Provider [address] [place], [place] [id number] Social History Tobacco Use Types Packs/Day Years Used Date Smoking Tobacco: Former Cigarettes Smokeless Tobacco: Never Personal Safety Answer Date Recorded Getting School Help Needed Not on file 05/13 Comments Unknown Sex and Gender Information Value Date Recorded Sex Assigned at Not on file 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
--- OUTSIDE RECORDS SUMMARY | 2024-03-19 20:53 | XMS_ITS | Encounter Summary ---
Author Organization [facility] Healthcare Address [address] [place] [address] Care Team Providers Care Potato Chip Processing Supervisor Name Role Phone Jaden Thakur Primary Care Provide r Reason for Visit * MRI/CAT/PET Scan (Routine) - Closed Specialty Diagnoses / Procedures Referred By Conttorin t Referred To Contact Procedures Neuro MR Outside Reference Gonzalez Jaffe MD 1 [facility] [address] [place] [id number] Phone: tel: fax: Referral ID Status Reason Start Date Expiration Date Visits Re quested Visits Authorized [id number] Closed 06/02/2023 07/01/2024 1 1 Encounter Details Date Type Department Care Team (Latest Contact Info) Description 06/02/2023 8:30 PM CDT - 06/02/2023 11:59 PM CDT Hospital Encounter 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 Radiology. ??There will be no report generated by a [facility] Radiologist. Narrative [facility] - 06/02/2023 8:30 PM CDT EXAMINATION: ??Images For Reference Purposes Only Gonzalez Jaffe MD IMG MRI PROCEDURES Final Result [facility] documented in this encounter Visit Diagnoses Not on filedocumented in this encounter Care Teams Potato Chip Processing Supervisor Relationship Specialty Start Date End Date Jaden Thakur DO [address] [place] [phone] PCP - General Family Medicine 06/01/23 documented as of this encounter
--- OUTSIDE RECORDS SUMMARY | 2024-03-19 20:53 | XMS_ITS | Encounter Summary ---
Author Organization [facility] Address [address] [place] [address] Phone Care Team Providers Care Server Software Engineer Name Role Phone Jaden Thakur Primary Care Provide r Encounter Details Date Type Department Care Team (Late st Contact Info) Description 08/01/2023 Telephone [facility] Cardiology [address] 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 Cochran. * Telephone Encounter - Rosa Lozano - 08/01/2023 12:45 PM CDT Gregory/ MICHELLE IOV Pt calling stating Dr. Jenkins wants her seen by EP for loop recorder consideration. Would like any location but prefers Sunday or Sunday appt. Please call to schedule. documented in this encounter Plan of Treatment Not on file documented as of this encounter Visit Diagnoses Not on filedocumented in this encounter Care Teams Server Software Engineer Relationship Specialty Start Date End Date Jaden Thakur DO [address] [place] [address] [phone] PCP - General Family Medicine 06/01/23 documented as of this encounter
--- OUTSIDE RECORDS SUMMARY | 2024-03-19 20:53 | XMS_ITS | Encounter Summary ---
Author Organization [facility] Address [address] [place] [address] Phone Care Team Providers Care Stock Saw Operator Name Role Phone Jaden Thakur Primary Care Provide r Reason for Referral * Cardiology (Routine) - Closed Specialty Diagnoses / Procedures Referred By Jimena muller Referred To Contact Diagnoses Cryptogenic stroke (HCC) Procedures DEVICE CHECK - IN OFFICE Angelica Cochran MD Phone: tel: fax: [facility] (All Locations) Referral ID Status Reason Start Date Expiration Date Visits Re quested Visits Authorized [id number] Closed 09/20/2023 10/19/2024 1 1 Encounter Details Date Type Department Care Team (Late st Contact Info) Description 09/20/2023 Orders Only [facility] Cardiology [address] [facility] [address] [facility] [address] [place] [address] Angelica Cochran MD [address] [place] [phone] Cryptogenic stroke (HCC) (Primary Dx) Social History Tobacco Use [...] on file 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 Gender Identity Not on file Sexual Orientation Not on file documented as of this encounter Plan of Treatment Not on file documented as of this encounter Results * DEVICE CHECK - IN OFFICE (12/18/2023 10:29 AM CDT) Anatomical Region Laterality Modality Other 12/18/2023 2:00 AM CDT Narrative 12/25/2023 9:07 AM CDT Interpretation Summary: Procedure Note Angelica Cochran MD - 12/25/2023 Interpretation Summary: Angelica Cochran MD [facility] PROCEDURES Final Result documented in this encounter Visit Diagnoses Diagnosis Cryptogenic stroke (HCC)- Primary Presence of electronic cardiac device- Primary Cryptogenic stroke (HCC) documented in this encounter Care Teams Stock Saw Operator Relationship Specialty Start Date End Date Jaden Thakur DO [address] [place] [phone] PCP - General Family Medicine 06/01/23 documented as of this encounter
--- OUTSIDE RECORDS SUMMARY | 2024-03-19 20:53 | XMS_ITS | Encounter Summary ---
Author Organization [facility], formerly 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 Phone Jaden Thakur Primary Care Provide r Reason for Referral * Neurology (Routine) - Closed Specialty Diagnoses / Procedures Referred By Jimena muller Referred To Contact Diagnoses Seizure disorder, complex partial (HCC) Procedures EEG Manuelito Venegas MD [address] [place] [address] Phone: tel: fax: [address] [phone] Referral ID Status Reason Start Date Expiration Date Visits Re quested Visits Authorized [id number] Closed 06/11/2023 07/10/2024 1 1 Reason for Visit * Reason Comments Consult * Consultation (Routine) - Closed Specialty Diagnoses / Procedures Referred By Jimena muller Referred To Contact Neurology Diagnoses Seizure disorder, complex partial (HCC) Elsi Sexton MD Phone: tel: fax: [facility] [address] [place] [address] [place] [address] Phone: tel: fax: Referral ID Status Reason Start Date Expiration Date V isits Requested Visits Authorized [id number] Closed Specialty Services Required 06/01/2023 06/30/2024 1 1 Encounter Details Date Type Department Care Team (Late st Contact Info) Description 06/11/2023 3:00 PM CDT Office Visit [facility] [address] [place] [address] Gonzalez Jaffe MD [address] [place] [address] Seizure disorder, complex partial (HCC) (Primary Dx) Social History Tobacco Use Types Packs/Day Years Used Date Smoking Tobacco: Former Cigarettes Smokeless Tobacco: Never Personal Safety Answer Date Recorded Getting School Help Needed Not on file 05/13 Comments Unknown Sex and Gender Information Value Date Recorded Sex Assigned at Not on file Legal Sex Female 10:05 AM [employer] Gender Identity Not on file Sexual Orientation Not on file documented as of this encounter Last Filed Vital Signs Vital Sign Reading Time Taken Comments Blood Pressure 108/71 06/11/2023 2:44 PM CDT Pulse 86 06/11/2023 2:44 PM CDT Temperature 36.8 ??C (98.2 ??F) 06/11/2023 2:44 PM CD T Respiratory Rate - - Oxygen Saturation 96% 06/11/2023 2:44 PM CDT Inhaled Oxygen Concentration - - Weight 102.1 kg (225 lb) 06/11/2023 2:44 PM CDT Height 162.6 cm (5' 4 ) 06/11/2023 2:44 PM CDT Body Mass Index 38.62 06/11/2023 2:44 PM CDT documented in this encounter Patient Instructions * Patient Instructions* Gonzalez Jaffe MD - 06/11/2023 3:00 PM CDT Epilepsy is a brain disorder that causes [...] surgery, prescribed dietary therapy, and neurostimulation devices. Will You Always Have Seizures? About 6 out of 10 people diagnosed with epilepsy can become seizure free within a few years with proper treatment. Many of these people will never have any more seizures. For the rest of the people, some will have occasional breakthrough seizures or side effects of medicines and others will have uncontrolled seizures. [place] in the First Year for People Newly Diagnosed with Seizures - About 50 to 60% (5 to 6 out of every 10 people) will be seizure free after using the first seizure medication tried. (Ray and Adonay, 2001, Leonarda et al, 2000, Jeff High et al 2010). - A second seizure medication may help 11 to 20 out of every 100 people become seizure free. Addingmore drugs usually doesn???t help the chance of seizure control. - 25 out of every 100 adults will develop uncontrolled epilepsy. (Leonarda et al, 2000) - Others will have continued seizures and side effects, but we don???t know if other treatments mayhelp. - In children with new-onset seizures, 74 out of 100 become seizure free within 2 years. (Iftikhar et al 2001) - Uncontrolled epilepsy may be seen in 9 out of 100 children followed for a number of years. (Shikha et al, 2010) [place] for People with Seizures and Epilepsy at Any Point in Time - About 60 to 70 out of 100 people may get control of seizures after a number of years, but we don???t know if this means complete control of both seizures and side effects. - At least 30 out of 100 people with epilepsy at any point in time have uncontrolled seizures. - Up to 50 out of 100 people with epilepsy report bothersome side effects of seizure medications. (Saurav et al, 2000) Factors that May Improve the Chance of Being Seizure Free - Having a positive response to the first 1 or 2 seizure medications tried. A positive response means that seizures do not recur and the person is seizure free. - No known history of brain injury or abnormality - A normal neurological exam and EEG - No family history of epilepsy - Having an unknown cause of epilepsy Will I have to stay on seizure medicine all my life? - If seizures go away, you may be able to come off seizure medicine, with your doctor???s advice, if you have been seizure free for 2 to 5 years. There are a number of issues to think about before slowly stopping your seizure medications. For example: - Do you drive a car and what is the risk of driving if you have another seizure? - What type of work do you do? Would you be at risk of injury coming off of medicine? - Are you ready and willing to make changes in your medicines? The length of time a person is seizure free before stopping medicine depends on many issues. The longer the time a person is seizure free on medications, the better chance of coming off medicines. More than 50 out of 100 children outgrow their epilepsy. Twenty years after the diagnosis, 75 out of 100 people will have been seizure free for at least 5 years, although some may still need to take daily medication. People who have surgery and become seizure free may be able to come off seizure medicine. However, some people may need to stay on their medication to prevent seizures from coming back, even after surgery. Seizure precautions: -- It is [place] and [place] state law that a person cannot drive [...] increase the risk of having another seizure. Keppra (Levetiracetam) How to take and store Levetiracetam? [...] or overdose, call the poison control center ([phone]) or call your hospital emergency room. How [...] seizure diary or text message system like [employer]. Ask your pharmacist to prefill the medicine [...] while , consider enrolling in the [place] Antiepileptic Drug (NAAED) Registry by calling (www.aedpregnancyregistry.org). [...] other medicines commonly used by older adults. Depakote, Depakene, or Divalproex (Valproic Acid) How to take and store Divalproex Sodium? Follow the doctor's directions. Call if you have any questions. Ask the doctor what to do if you forget a dose. The way the medicine is taken depends, of course, on what form the doctor has prescribed. Most doctors recommend taking Depakote with food to avoid an upset stomach, but it can also be taken without food. Because food affects the way medicine is used by the body, try to be consistent day in and day out. A person who usually takes Depakote with meals should do that all the time. The sprinkle capsule is a way for small children or older people who have trouble swallowing pills to take Depakote. The capsule can be swallowed whole, but it is designed to be opened. Sprinkle all the contents onto a teaspoon of soft food such as applesauce, custard, ice cream, oatmeal, pudding, or yogurt. Combine the medicine and the food. Then it should all be swallowed right away, without chewing. Drinking a glass of water or another liquid may help with swallowing. Don't save any of the mixture for later. As the doctor increases the amount of Depakote, you may be given a different kind of pills than theones you've been using. For example, you may start out using 250-mg tablets and then switch to 500-mg tablets. If this happens, be careful to use the correct number. Don't automatically continue to use the same number of pills as before. Store both types of Depakote at room temperature and keep the pills away from light and dampness. Don't keep them in the bathroom if it's damp there. And of course keep both kinds where children can't get at them. What if I forget? In general, if you forget a dose, take it as soon as you remember. If it is almost time for the next dose, delay that dose for a few hours, instead of taking two doses very close together. Then go back to the regular schedule. If you're not sure about what to do, call the doctor's office for more advice. Do your best to follow the doctor's directions. The more often a medicine must be taken, the greater the chance of forgetting, and some people need to take Depakote three or four times every day. This can be difficult. If you forget doses often, it may be a good idea to get a special pillbox or watch with an alarm to remind you. You also might ask the doctor whether you can switch to Depakote ER,which is taken only once a day. Taking the right amount of seizure medicine on time every single day is the most important step in preventing seizures! How does Divalproex Sodium affect the brain? Brain cells need to work (fire) at a certain rate to function normally. During a seizure, brain cells are forced to work much more rapidly than normal. Depakote helps prevent brain cells from workingas fast as a seizure requires them to. In this way, seizures can be stopped when they are just beginning. We don't completely understand how Depakote works. Doctors think that it may work in several ways at once. That could be why it works for so many different kinds of seizures. How does the body digest Divalproex Sodium? After medicine is swallowed, it must be absorbed into the blood so it can move throughout the body.The process of absorbing, digesting, and excreting a medicine or food is called metabolism. The waythe body metabolizes a particular medicine affects how often it must be taken. It also determines whether it will interact with other medicines or be affected by conditions such as liver disease. Depakote is absorbed a bit more quickly if the sprinkle capsule is used than if the regular tabletsare taken, but in the end the amount absorbed is about the same. Taking Depakote with a meal instead of on an empty stomach also slows absorption. That's why it helps to be consistent. Like many other medicines, Depakote is broken down (digested) in the liver. People with liver disease should not take it. Anyone who also takes other medicines that are digested in the liver need to be careful. How well each medicine works and how quickly it leaves the body may be changed. This is why the doctor needs to know about everything that a person takes--not just prescription medicines but even things like vitamins, herbs, and aspirin! These things can affect how much Depakotethe doctor prescribes. How well does the Divalproex Sodium work? Doctors have studied large numbers of people to find out how well Depakote and the other medicines that contain valproate control seizures. (There is hardly any difference in the way the different valproate medicines work.) They have reported that Depakote is very good at completely controlling absence seizures in many people who take it. In another group, over 80% of people with new tonic-clonicseizures and related types didn't have any seizures during the period when they were given Depakote. These promising results are not always matched in everyday life. Sometimes people don't take all their medicine on time. Not everyone's seizures can be controlled at a dose that can be taken without side effects. Because of individual differences, there is no best amount for everyone. Adjustmentsare often needed to reduce seizures or side effects. In studies of seizure medicines, some people do better with Depakote and others do better with something else. It's difficult to forecast the results for any given person. Differences in side effectsmay be important in deciding which medicine is best for each person. If seizures continue, the doctor probably will change the amount of Depakote prescribed. If that doesn't work, the next step may be either to prescribe a different seizure medicine by itself or to prescribe a combination of Depakote and another seizure medicine. Many are available. No single combination is best for everyone. Depakote is often used as an add-on medicine for people who continue to have certain kinds of seizures while taking other seizure medicines. What are the most common side effects of Divalproex Sodium? Most people who take Depakote don't have too much trouble with side effects. That's one of the reasons it's used so much. The most common complaints (usually not too severe) are: tiredness (sometimes with slower thinking) dizziness upset stomach vomiting tremor (shaking of the hands or other parts of the body) hair loss weight gain changes in behavior (depression in adults, irritability in children) If you notice any of these problems, call the doctor. Sometimes the doctor can help by changing theamount or type of Depakote prescribed. No one should stop taking Depakote or change the amount theytake without their doctor's guidance. Stomach upset from Depakote may be less of a problem if the pills are taken on a full stomach. Stomach upset is more likely when another seizure medicine with similar side effects (for example, Tegretol) is also being used. Tremor (shaking of the hands or other body parts) tends to be worse when the level of Depakote in the blood is highest, a few hours after the pills are taken. Anxiety or caffeine also may make it worse. Weight gain affects 30% to 50% of people who take Depakote. It is more common in adult women but can affect anyone. The average gain for adults is 15 pounds. Exercise and a reduced-calorie diet can be very helpful. It's uncertain whether weight gain is greater when higher doses of Depakote are taken. Hair loss occurs in 5% to 10% of people who take Depakote. The hair almost always grows back after the Depakote is stopped, but it often has a different texture. (For example, it may grow in curly instead of straight.) People who have just started taking Depakote (or who have just started taking a larger amount) should be careful during activities that might be dangerous, until they know whether they are having anyside effects. Allergic reactions Allergic reactions such as rashes are less common with Depakote than with most other seizure medicines. Even so, you should report any rash to the doctor or nurse right away, especially if Depakote treatment has just begun. It's rare for the rash to be serious, but don't ignore it. It's often necessary to switch to a different seizure medicine. A very small number of people who take Depakote develop life-threatening disorders. Children younger than 2 years of age and other people who are taking more than one seizure medicine have the greatest risk. See Serious side effects. Long-term side effects Some people who have taken Depakote for many years have experienced bone loss and a few other disorders. Taking both calcium and vitamin D may help to prevent this kind of problem. Doctors sometimes recommend a bone density test to identify which people need treatment for bone loss. What are the most serious side effects of Divalproex Sodium? A few people have serious reactions to Depakote. These problems are very rare but everyone who takes this medicine should at least be aware of them because a very small number of people have because of them. Here's a list of warning signs that may be the start of one of these problems. If you notice any ofthese things, call the doctor immediately: weakness, sluggishness, swelling of the face, loss of appetite, vomiting, yellowish eyes or skin, especially in a child under 2 years of age (possible liver failure) pain in the abdomen, upset stomach, vomiting, or loss of appetite (possible disease of the pancreas) easy bruising, nosebleed, other abnormal bleeding (problems with clotting) Tell the doctor right away if you notice any of these problems, but don't stop using the Depakote unless the doctor says so. The best-known and most-feared serious reaction is liver failure. This disorder usually occurs within the first 6 months of treatment. The risk of liver failure is much higher in children under 2 years of age, especially if they also take other seizure medicine or already have other serious disorders. The risk of liver failure is much lower in children between 2 and 10. The risk is very low in olderchildren and adults, perhaps 1 in 50,000. There is no evidence that long-term use of Depakote will cause gradual damage to the liver. Another rare reaction to Depakote is a disorder of the pancreas. Occasionally it is so severe that bleeding and can occur. Both children and adults can be affected, even after several years of taking Depakote. Report pain in the abdomen, upset stomach, vomiting, or loss of appetite to the doctor right away. Problems with blood clotting are more likely in people who take large amounts of Depakote. Sometimes the blood returns to normal without stopping the Depakote. The doctor probably will order some blood tests before prescribing Depakote, and will repeat them some time later and before any elective surgery. A complete list of all reactions to Depakote can be found in the package insert, but it is important to remember that only a tiny number of people have any of these serious problems. On September 19, 2007, an advisory panel was convened by the Food and Drug Administration (FDA) to review data that the FDA had previously collected from drug studies showing an association between many of the antiepileptic drugs (AEDs) and suicidal ideation and behavior, which together are called suicid ality. According to the FDA???s Alert, among the patients with epilepsy in these drug studies, 1 out of 1000 people taking the placebo (inactive substance) showed suicidality compared to approximately 3.5 out of 1000 people who took an AED. The FDA advisory panel voted to accept the FDA's data at its meeting on September 18. Taking antiepileptic medicines may increase the risk of having suicidal thoughts or actions; Do not make any changes to the medication regimen without first talking with the responsible healthcare professional; Pay close attention to any day-to-day changes [...] with and dying Giving away prized possessions We again urge patients and families to contact their doctor before stopping an epilepsy medication because this may possibly lead to seizures and worsening of mood. Impact of Divalproex Sodium on bone health People with epilepsy taking certain seizure medications are at higher risk than other people for developing osteoporosis and fractures. Many studies have shown an association between antiseizure medications and osteoporosis, particularly with older medications such as phenytoin (Dilantin), carbamazepine (Tegretol, Carbatrol), primidone (Mysoline), and valproic acid (Depakote). Talk to your treating health care provider about your risks for thinking of the bones, bone loss and fractures or broken bones. Pay attention to getting enough exercise, sunlight and eating healthy. Ask about ways to lessen your risks, such as the use of calcium, vitamin D or other medications. What else is Divalproex Sodium used for? Depakote has been used successfully for many years to treat epilepsy, but it also has been approvedby the Food and Drug Administration (FDA) for two other uses: preventing migraine headaches (not treating headaches while they're occurring) treating one part of the mental illness called bipolar disorder. Who should not take Divalproex Sodium? People with liver disease should not take Depakote. Neither should anyone who has shown an allergy to Depakote in the past. Make sure the doctor knows about any liver problems, so a different medicine can be prescribed instead. Can Divalproex Sodium be taken with other medicines? Sometimes one kind of medicine changes the way another kind of medicine works in the body. This is true not only for prescription medicines, but also for medicines you just medicinal plant picker off the shelf at the store. For instance, aspirin (ASA) may increase the side effects from taking Depakote. If someone who is taking Depakote-especially a child-also starts to take the seizure medicine called Lamictal, the chances of a very dangerous rash will be increased. Adding the Lamictal slowly reduces this danger. Taking both Depakote and another seizure medicine, Klonopin, sometimes causes absence seizures to be much longer. Any time a doctor suggests a new prescription, be sure to talk about what other medicines you are already using. If two kinds of medicine affect each other, the doctor may want to prescribe somethingelse or change the amount to be taken. How does Depakote affect other medicines Depakote affects the way the body handles many other seizure medicines. Some of these are: Felbatol (felbamate) Lamictal (lamotrigine) Mysoline (primidone) phenobarbital If a person taking one of these medicines starts taking Depakote, the first medicine will stay in the body longer. If the person keeps taking the same amount as before, soon there will be too much ofit. This may cause side effects like extreme tiredness and slurred speech. The person might seem mini drunk. A similar thing could happen with several other seizure medicines, but the effects for people taking these would probably not be too noticeable: Tegretol or Carbatrol (carbamazepine) Zarontin (ethosuximide) Ativan (lorazepam) Dilantin or Phenytek (phenytoin) All of these effects mean that if a person taking another seizure medicine starts taking Depakote too, the amount of the first medicine may need to be changed. Or if a person has been taking Depakotealong with another seizure medicine, stopping either one of them means that the amount of the otherone probably will have to be changed. How do other medicines affect Depakote? Some other medicines do affect the way Depakote works in the body. Make sure that the doctor is aware of all the medicines being used. If a woman takes Divalproex Sodium during will it hurt the baby? In the [place], the Food and Drug Administration (FDA) assigns each medication to a PregnancyCategory according to whether it has been proven to be harmful in . Depakote is listed in Category D. This means that there is a risk to the baby, but the benefits may outweigh therisk for some women. In fact, a large majority of women who use Depakote during have normal, healthy babies. Certain types of defects are increased (especially if Depakote is taken during the first 3 months of ) but they are still relatively uncommon. The risk of defects is higher for women who take more than one seizure medicine. Women with a family history of defects also have a higher risk. The babies of women taking valproic acid have a greater than usual number of minor craniofacial abnormalities, organ malformations, limb deficiencies, or developmental delay. The risk of defects is higher for women who take more than one AED and for women with a family history of defects. Moreover the NEAD study showed that children born to women who took Valproic acid, had lower IQ scores than children born to women with epilepsy who tool other seizure medications. Women with epilepsy who are or thinking about becoming should talk to their doctor about their seizure medicines. Taking more than one seizure medicine may increase the risk of defects, so doctors sometimes gradually reduce the number or amount of seizure medicines taken by women planning for . This is not done routinely, however, because it increases the risk of seizures. Some kinds of seizures can injure the baby, so do not stop using seizure medicines or reduce the amount without the doctor???s OK. All women who are capable of becoming should take at least 400 mcg (0.4 mg) of the vitamincalled folic acid every day because it helps to prevent one type of defect. (The most well-known of these is spina bifida, in which the spinal cord is not completely enclosed.) These defects are more common in the babies of women who take Depakote during the first 4 to 6 weeks of . If the doctor thinks a woman is at especially high risk, a much larger dose of folic acid--4000 mcg (4 mg) per day--may be recommended. There's no proof that the folic acid will prevent the defects, however, so the doctor may recommend a check-up later in . About 20% to 35% of women have seizures more often during because of changes in hormones or changes in how their seizure medicine is handled by the body. It is helpful for the doctor to check the levels of medicine in the blood regularly during so that the dosage can be adjustedif necessary. Breast-feeding by mothers taking Depakote should be safe for healthy, full-term newborns. The amount of medicine the baby gets through the milk is much less than the amount that doctors safely give to babies who take Depakote for seizures. A recent large study has found that children who took this drug during had children with lowered IQ and a risk of autism. If you are a woman on this drug and considering , please talk to your doctor. What are the effects of Divalproex Sodium on Seniors Doctors have prescribed Depakote to people over 65 for many years with good results. These seniors do have a few special problems, however. Most seniors take more medicines than younger people, so there???s a greater risk that the medicines may affect each other. Usually seniors can continue to take all the medicines they need, includingDepakote, without trouble if the doctor changes the amount of some of them to make up for the way they affect each other. Seniors also tend to be more sensitive than younger adults to medicines and their side effects. Forinstance, many seniors have a problem with sleepiness, depression, weight gain, or shaking of the hands even before they start taking Depakote. These are common side effects of this medicine, so these problems may become worse and cause real trouble. Seniors also face more danger from some side effects because they are more likely to be seriously hurt if they fall or have another kind of accident. To reduce side effects, the doctor probably will prescribe a very low dose of Depakote to start andthen be cautious about any increases. It???s especially important for seniors to keep the doctor informed about any changes that they notice. The [employer] of [place] is an organization aimed at helping you [...] Filled Start Date End Date levETIRAcetam (KEPPRA) 500 mg tablet Take 1 tablet (500 mg total) by mouth 2 (two) times a day 60 tablet 11 06/14/2023 09/03/[address] (DEPAKOTE) 250 mg EC tablet Take 1 tablet (250 mg total) by mouth 2 (two) times a day 60 tablet 5 06/11/2023 09/19/2023 documented in this encounter Progress Notes * Manuelito Venegas MD - 06/11/2023 3:00 PM CDT Images from the original note were not included. Name: Consuelo Jimenez Date of : 1980 PCP: Jaden Thakur, Date: 06/11/2023 Provider: Gonzalez Jaffe MD HISTORY OF PRESENT ILLNESS Consuelo Jimenez is a 42 y.o. right-handed female who was referred by Elsi Sexton MD for evaluation of single seizure. Patient is accompanied by Salo, who helps to provide the history. Ms. 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 She denies having seizure during the course of hospitalization. She was started on prophylactic ASM (keppra 500 mg bid) [facility] and was recommended to continue for 3 [...] without much benefit. 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 SOCIAL HISTORY Social History Tobacco Use Smoking status: Former Types: Cigarettes Smokeless tobacco: Never Substance and Sexual Activity Drug use: None Sexual activity: None Alcohol Use: Not At Risk (04/10/2019) Received from [facility] AUDIT-C Frequency of Alcohol Consumption: Monthly or less Average Number of Drinks: 1 or 2 Frequency of Binge Drinking: Never FAMILY HISTORY Family History Problem Relation Age of Onset Osteoporosis Other MEDICATIONS Current Outpatient Medications Medication Instructions aspirin 325 mg, oral, Daily baclofen (LIORESAL) 5 mg, oral, Nightly cetirizine 10 mg, oral, Nightly cholecalciferol (CHOLECALCIFEROL) 2,000 Units, Daily cyclobenzaprine (FLEXERIL) 5 mg, oral, [address] (DEPAKOTE) 250 mg, oral, [address] (CYMBALTA) 60 mg, oral, Daily HYDROcodone-acetaminophen (NORCO) 5-325 mg per tablet 1 tablet, oral, Every 6 hours PRN hydrOXYzine (VISTARIL) 25 mg, oral, 3 times daily PRN levETIRAcetam (KEPPRA) 500 mg, oral, 2 times daily metoprolol tartrate (LOPRESSOR) 25 mg, oral, [address] (PROTONIX) 40 mg, oral, Daily polyethylene glycol (MIRALAX) 17 g, 2 times daily PRN verapamiL (CALAN) 125 mg, oral, Every 8 hours ALLERGIES Consuelo is allergic to latex and vancomycin. OBJECTIVE Vital Signs Vitals BP 108/71 (BP Location: Right arm, Patient Position: Sitting) Pulse 86 Temp 36.8 ??C (98.2 ??F) Ht 162.6 cm (5' 4 ) Wt 102.1 kg (225 lb) SpO2 96% BMI 38.62 kg/m?? Physical Exam General: The patient appeared [...] Followed 2-step commands. Naming and repetition intact. Recalls 3/3 objects at 5 minutes. Cranial Nerves: Pupils equal, regular, and reactive to light and accommodation. Extraocular movements intact. Visual torres- left inferior quadrantanopia. Symmetric to light touch in V1-V3 distributions [...] Left 0 0 0 0 0 0 1 1 3 3 2 2 Right 5 5 5 5 5 5 5 5 5 5 5 5 Sensation: The patient had normal sensation to temperature and light touch. Coordination: Finger to nose testing and rapid alternating movements were normal in the right. Gait: deferred, left hemiplegia Reflexes: Biceps Brachioradialis Triceps Patellar Achilles Left 3+ 3+ 3+ 3+ Clonus Right 2+ 2+ 2+ 2+ 2+ Walters sign positive in left hand Labs: [...] 11/09/2022): Right MCA territory acute ischemic CVA DEXA: N/A Assessment 42-year-old right handed female with history of migraine disorder and acute ischemic CVA (October,) secondary to right M1 occlusion status post mechanical thrombectomy (TICI 2b) complicated by malignant edema requiring decompressive hemicraniectomy with reimplantation in January [address] arted on Keppra 500 mg bid presents to establish care after a single life time event that is concerning for a seizure from collateral history while tapering Keppra dose. She will need a neurodiagnostic evaluation with a routine EEG for risk stratification (high pretest probability with history of stroke) She reported recurrence of her headaches with worsening in frequency few weeks prior to this event.She had stopped taking Elavil since her stroke. As her migraines recurred and no given no clear benefit with Elavil, discussed about starting her on VPA. We will consider switching from Keppra to Depakote in future, if headaches improve, as VPA can help with both headaches and seizures. Plan - continue keppra 500 mg twice daily - start depakote 250 mg twice daily - routine EEG - follow up in 3 months The patient is to maintain seizure precautions including not driving, operating heavy machinery, swimming alone, taking baths, climbing ladders, working at heights or cooking over an open flame untilfree of events with loss of awareness for at least 6 months. Electronically signed by: Manuelito Venegas [Epilepsy Fellow, PGY-5] What is the patient's current mean epileptic seizure frequency? Zero Cosigned by Gonzalez Jaffe MD at 06/14/2023 10:19 PM CDT Associated attestation - Gonzalez Jaffe MD - 06/14/2023 10:19 PM CDT I have seen and examined the patient. I agree with the findings and plan of care as documented in the resident/fellow's note and as discussed with the resident/fellow. documented in this encounter Plan of Treatment Not on file documented as of this encounter Results * EEG (06/25/2023 4:47 PM CDT) Anatomical Region Laterality Modality EEG Narrative 06/25/2023 4:47 PM CDT Routine EEG Report Patient Name: Consuelo Jimenez [facility] Medical Record Number (MRN): [id number] [facility] Record: No [facility] MRN Date of (): 1980 EEG Date: [...] 32 channel EEG recording acquired on a [email or web address] EEG-1200 acquisition system. 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 complex partial seizures, without mention of intractable epilepsy documented in this encounter Discontinued Medications Medication Sig Discontinue Reason Start Date End Da te levETIRAcetam (KEPPRA) 500 mg tablet Take 1 tablet (500 mg total) by mouth 2 (two) times a day Reorder 01/11/2023 06/14/2023 documented as of this encounter Orders Outpatient Referral Count Last Ordered Date Fir st Ordered Date AMB REFERRAL TO NEUROLOGY 1 06/11/2023 documented in this encounter 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
--- OUTSIDE RECORDS SUMMARY | 2024-03-19 20:53 | XMS_ITS | Encounter Summary ---
Author Organization [facility] Healthcare Address [address] [place] [address] Care Team Providers Care Improvement Engineer Name Role Phone Jaden Thakur DO Primary Care Provide r Encounter Details Date Type Department Care Team (Late st Contact Info) Description 11/16/2023 Orders Only [facility] Medical Group Orthopedics and Sports Medicine [address] [facility] [address] [place] [id number] Moises Yoon MD [address] [place] [address] [address] [place] [address] Left shoulder pain, unspecified chronicity (Primary Dx); Superior glenoid labrum lesion of left shoulder, initial encounter Social History Tobacco Use Types Packs/Day [...] on file 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
--- OUTSIDE RECORDS SUMMARY | 2024-03-19 20:53 | XMS_ITS | Encounter Summary ---
Author Organization [facility] Address [address] [place] [address] Phone Care Team Providers Care Care Mgr Name Role Phone Jaden Thakur Primary Care Provide r Reason for Referral * Cardiology (Routine) - Authorized Specialty Diagnoses / Procedures Referred By Contac t Referred To Contact Diagnoses RBBB Procedures ECG 12 lead Angelica Cochran MD Phone: tel: fax: [facility] (All Locations) Referral ID Status Reason Start Date Expiration Date V isits Requested Visits Authorized [id number] Authorized 09/18/2023 10/17/2024 1 1 Reason for Visit * Consultation (Routine) - Authorized Specialty Diagnoses / Procedures Referred By Conttorin t Referred To Contact Cardiology Diagnoses PFO (patent foramen ovale) Tamir Jenkins MD [address] [place] [address] Phone: tel: fax: [facility] (All Locations) Referral ID Status Reason Start Date Expiration Date Visits Requested Visits Authorized [id number] Authorized Specialty Services Required 07/30/2023 08/28/2024 12 12 Encounter Details Date Type Department Care Team (Late st Contact Info) Description 09/18/2023 2:30 PM CDT Office Visit [facility] Cardiology [address] [place] [address] Angelica Cochran MD [address] 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 Gender Identity Not on file Sexual Orientation Not on file documented as of this encounter Last Filed Vital Signs Vital Sign Reading Time Taken Comments Blood Pressure 105/65 09/18/2023 2:21 PM CDT Pulse 90 09/18/2023 2:21 PM CDT Temperature 36.8 ??C (98.3 ??F) 09/18/2023 2:21 PM CD T Respiratory Rate - - Oxygen Saturation 97% 09/18/2023 2:21 PM CDT Inhaled Oxygen Concentration - - Weight 104.3 kg (230 lb) 09/18/2023 2:21 PM CDT Height 162.6 cm (5' 4 ) 09/18/2023 2:21 PM CDT Body Mass Index 39.48 09/18/2023 2:21 PM CDT documented in this encounter Patient Instructions * Patient Instructions* Angelica Cochran MD - 09/18/2023 2:30 PM CDT Possible ILR implant with anesthesia Sunday[facility] 05[facility] 2023 at [facility] We will call you to confirm Call if you want a different date [phone] documented in this encounter Progress Notes * Angelica Cochran MD - 09/18/2023 12:00 AM CDT Date: 09/18/2023 Gonzalez Jaffe MD [address] [place] [address] Jaden Thakur DO [address] [place], [place] [id number] Patient Name: TRICE JIMENEZ Date of : 1980 Date of Visit: 09/18/2023 Dear Ofe Espinoza, and Gregory: I saw Trice Jimenez [facility] to discuss ILR implant for cryptogenic stroke. She isaccompanied by her . She is 42 years old. PROBLEM LIST: 1. Stroke. a. Thought to be cryptogenic. b. Status post thrombolytic therapy at [facility] with 1 hour of last known well. No resolution of symptoms. c. Status post mechanical thrombectomy. d. Status post craniotomy for swelling and then repeat craniotomy in January 2023 to replace the skull section. 2. Secondary seizure disorder. 3. 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 4. Residual left hemiparesis. 5. Hypertension, treated with verapamil and metoprolol. 6. Dizziness. a. Episodes occur daily. b. relates this to possible change in seizure medications. 7. She also has left shoulder subluxation. HISTORY OF PRESENT ILLNESS: Ms. Jimenez is referred for discussion of ILR implant. She has a complex medical history beginning ap0003. She had been well without any symptoms of palpitations, lower extremity swelling, or shortness of breath. Her found her on the bathroom floor. He described her speech as no speech with a dazed look on her face. Her left side was found under the cabinet. He called 911. They asked to have him raise her both arms. She could not raise her left arm, either, because of muscle weakness or it was trapped. When her asked her to smile, he noted facial asymmetry. He subsequently called 911 and she was taken to [facility] within the first hour of thrombolytic therapy. He states that did not change her neurologic status. She then underwent mechanical thrombectomy both from her leg and arm. She developed a blood clot in her leg after that. Her states it took a month for her speech to return. She went to 1 month inpatient rehab and 7 months of outpatient rehab. She still goes to physical therapy for strength and balance. She is able to walk with a cane. She does have left-sided hemiparesis. She has had no falls and noloss of consciousness. She has no history of congenital heart disease. There was some concern that she may have a PFO, butrecent echocardiography by [facility] at [facility] in June 2023 demonstrated no PFO. Her states that they were not sure what caused the stroke. They first thought it may be an infection on her aortic valve as some mass was seen on [facility]'s echocardiography. She had had a dental cleaning a month prior. She was treated with antibiotics but apparently had no positive cultures. He states that he was told that if the mass was a clot, it was too big to be an arterial clot and was possibly a venous clot. Thus, there was concern over PFO, but that had not been documented. After her craniotomy and stroke, she developed 2 seizures. She has been followed by Neurology. The second seizure occurred when the Keppra dose was decreased. She is to undergo an admission to the video EEG unit at the end of October for 5 days of video monitoring and adjustment of her medication. She has no history of loss. She has no history of DVT. There is no family history of a bleeding disorder, although her mother did have a DVT and has an IVC filter, apparently. Her is well-versed in her hospital course and history, states that she is being seen by 5 different consultative services while at [facility]. The patient states that she is willing to undergo further diagnostic testing to get information about why this may have happened to her. Her states that when she had a seizure, her eyes moved towards the left, she was not responsive, she had blue lips and labored breathing. PAST MEDICAL HISTORY: As per Problem List. She apparently has a history of hypertension, dyslipidemia. No diabetes, no coronary disease, no losses. SURGICAL HISTORY: Craniotomy October 2022, and then cranioplasty January 2023. No smoking. No alcohol. SOCIAL HISTORY: She is . She has 2 children who are well. 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 FAMILY HISTORY: DVT in her mother. REVIEW OF SYSTEMS: She reports headaches, hot flashes, and dizziness. Her states that she has twitching in herhands and legs when she stands at home. She uses a quad cane and a wheelchair. ALLERGIES: LATEX CAUSING RASH. VANCOMYCIN-HIGH FEVERS. CURRENT MEDICATIONS: 1. Aspirin 325 mg a day. 2. Baclofen 5 mg at bedtime. 3. BuSpar 5 mg twice daily. 4. Cetirizine 10 mg at bedtime. 5. Vitamin D 2000 units daily. 6. Flexeril 5 mg 3 times a day. 7. Depakote 250 mg twice daily. 8. Cymbalta 60 mg daily. 9. Alamo 10/325 every 6 hours p.r.n. 10. Vistaril 25 mg 3 times a day for itching. 11. Keppra 1000 mg twice daily. 12. Metoprolol 25 mg twice daily. 13. Pantoprazole 40 mg daily. 14. MiraLAX. 15. Verapamil 40 mg tablets 125 mg every 8 hours. PHYSICAL EXAMINATION: GENERAL: Well-appearing female. VITAL SIGNS: Blood pressure 105/65, heart rate 90, O2 sat 97%, weight 104 kg, BMI 39.5. HEAD AND NECK: She is sitting in a wheelchair. Anicteric sclerae. BACK: No CVA tenderness. CHEST: Clear. Equal breath sounds. No rales or wheezes. CARDIAC: Regular rate and rhythm. S1, S2 normal. No S3. No murmur, heave, or thrill. ABDOMEN: Round, soft. EXTREMITIES: She has her left leg in a brace. She has some ability to move her left upper extremityor left lower extremity. She is hypesthetic with increased sensation on the left side. NEUROLOGIC: Her facial exam demonstrates that her smile is asymmetric. RADIOGRAPHS: Shoulder x-rays done 08/10/2023, no osseous abnormality, widening of the joint space. DATA REVIEW: ECG today: Sinus rhythm, incomplete right bundle branch block, QRS duration 86 milliseconds, heart rate 95. I have personally and independently interpreted the ECG from 05/28/2023, demonstrating sinus rhythmand incomplete right bundle branch block. I have reviewed the [facility] report regarding no PFO. I have reviewed Dr. Jaffe's notes from Neurology and her seizure disorder. I have reviewed Tamir Jenkins's clinic notes. I gave obtained history from her . IMPRESSION AND PLAN: 1. Cryptogenic stroke. It is unclear the etiology of her stroke. The [facility] medication 12/14/2022 note says that she had M1 occlusion cleared by mechanical thrombectomy. No pathology is available It is reasonable for her to undergo ILR implant. I explained that this is a diagnostic procedure looking for atrial arrhythmias as the possible cause of her stroke. I explained that in 40-year-old females without structural heart disease or congenital heart disease, atrial fibrillation is less likely. Nevertheless, given that there is no clear etiology, it is reasonable for her to consider this. I discussed the risks of the procedure including bleeding, infection, device malfunction, need for follow-up, and copays. I showed her demonstration units and where the device incision would be placed. I explained the incision is the size of my thumbnail with 4-0 Vicryl sutures to close the incision. We are investigating whether this can be done before her November 05 admission. This will possibly be done on Sunday, November 04. We will determine if this can be scheduled. 2. Stroke with left hemiparesis and hypesthesias. Given all that she has been through, her procedure is best done with assistance of the anesthesiology service. She requests this. I explained that she will also get local anesthesia. 3. Dizziness. She has had no evidence of arrhythmia,. An implantable loop recorder may help determine if there is any arrhythmic etiology to these symptoms. It was a pleasure meeting her today. Her stroke was obviously severe given her persistent deficits.If I can be of any further assistance, please do not hesitate to contact me. Respectfully, ELECTRONICALLY SIGNED - 09/19/2023 07:20 AM Angelica Cochran M.D., F.A.C.C., F.H.R.S. global risk management director /[facility] cc: Tamir Jenkins M.D., Robin.A.CKaeC. documented in this encounter Plan of Treatment Scheduled Orders Name Type Priority Associated Diagnoses Orde r Schedule ECG 12 lead ECG Routine RBBB Ordered: 09/18/2023 documented as of this encounter Visit Diagnoses Diagnosis RBBB- Primary PFO (patent foramen ovale) Ostium secundum type atrial septal defect Cryptogenic stroke (HCC) documented in this encounter Orders Outpatient Referral Count Last Ordered Date Fir st Ordered Date AMB REFERRAL TO CARDIAC ELECTROPHYSIOLOGY 1 09/18/2023 documented in this encounter Care Teams Care Mgr Relationship Specialty Start Date End Date Jaden Thakur DO [address] [place] [id number] PCP - General Family Medicine 06/01/23 documented as of this encounter
--- OUTSIDE RECORDS SUMMARY | 2024-03-19 20:53 | XMS_ITS | Encounter Summary ---
Author Organization [facility] Healthcare Address [address] [place] [address] Care Team Providers Care Cottrell Operator Name Role Phone Jaden Thakur DO Primary Care Provide r Reason for Visit * Auth/Cert (Routine) Specialty Diagnoses / Procedures Referred By Jimena t Referred To Contact Diagnoses Cryptogenic stroke (HCC) Cryptogenic stroke (HCC) [I63.9] Procedures IMPLANTABLE CARDIAC EVENT MONITOR INSERTION [id number] Referral ID Status Reason Start Date Expiration Date Visits Re quested Visits Authorized [id number] 1 1 Encounter Details Date Type Department Care Team (Late st Contact Info) Description 12/03/2023 12:25 PM CDT Anesthesia Event [facility] Electrophysiology Lab [address] [place] [address] Caridad [place] MD [address] [place] [address] Marie Jules CRNA [address] [place] [address] Anesthesia Record Procedure Summary Procedure Name Responsible Anesthesiologist Anesthesia Start Time Anesthesia Stop Time IMPLANTABLE CARDIAC EVENT MONITOR INSERTION [id number] Caridad [place] MD 12/03/23 1225 12/03/23 1323 Events Date Time Event Comment 12/03/2023 1225 An Start 1229 An Start Data 1236 Start Supplemental O2 1237 An Induction The patient was reevaluated immediately before moderate or deep sedation use and before anesthesia induction. 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 Gender Identity Not on file Sexual Orientation Not on file documented as of this encounter OR Notes * Anesthesia Postprocedure Evaluation - Marie Jules CRNA - 12/03/2023 1:23 PM CDT Patient: Consuelo Jimenez Procedure Summary Date: 12/03/23 Room / Location: [facility] EP [facility] EP [facility] Anesthesia Start: 1225 Anesthesia Stop: 1323 Procedure: IMPLANTABLE CARDIAC EVENT MONITOR INSERTION [id number] Diagnosis: Cryptogenic stroke (HCC) (Cryptogenic stroke (HCC) [I63.9]) Providers: Angelica Cochran MD Responsible Provider: Caridad Wake[place] MD Anesthesia Type: MAC ASA Status: 3 Anesthesia Type: MAC Last vitals BP 126/62 Pulse 96 Temp 36.7 ??C (98.1 ??F) (Oral) Resp 17 SpO2 93% Anesthesia Post Evaluation Patient location during evaluation: PACU Patient participation: complete - patient participated Level of consciousness: fully awake and follows simple commands Pain score: 0 Pain management: adequate Airway patency: adequate and patent Evidence of recall: no Cardiovascular status: acceptable and hemodynamically stable Respiratory status: acceptable and room air Hydration status: acceptable Pt is: normothermic Nausea/Vomiting status: none Comments: Patient taken to [facility] holding room 14. Handoff given to holding RN. All questions answeredafter critical hookup. No notable events documented. Cosigned by Caridad Wakefield MD at 12/03/2023 2:43 PM CDT * Anesthesia Preprocedure Evaluation - Caridad Wakefield MD - 12/03/2023 11:59 AM CDT Images from the original note were not included. Anesthesia Evaluation Consuelo Jimenez is a 43 y.o. 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 Last Dose Start Date End Date Provider aspirin 325 mg tablet 12/03/2023 -- -- ProviderArmand MD baclofen (LIORESAL) 5 mg tablet 12/02/2023 12/14/22 -- ProviderArmand MD busPIRone (BUSPAR) 5 mg tablet 12/02/2023 06/29/23 -- ProviderArmand MD cetirizine 10 mg tablet,disintegrating 12/02/2023 -- -- Provider, MD Armand cholecalciferol 25 mcg (1,000 unit) tablet 12/02/2023 12/14/22 -- ProviderArmand MD cyclobenzaprine (FLEXERIL) 5 mg tablet 12/02/2023 12/14/22 -- Provider, MD Armand DULoxetine DR (CYMBALTA) 60 mg capsule 12/02/2023 02/15/23 -- ProviderArmand MD HYDROcodone-acetaminophen (NORCO) 10-325 mg per tablet 12/02/2023 06/12/23 -- Provider, MD Armand hydrOXYzine (VISTARIL) 25 mg capsule 12/02/2023 -- -- ProviderArmand MD levETIRAcetam (KEPPRA) 1,000 mg tablet 12/03/2023 10/21/23 -- Bridgett Diaz MD Take 1.5 tablets (1,500 mg total) by mouth 2 (two) times a day LORazepam (ATIVAN) 0.5 mg tablet () -- 10/21/23 10/24/23 Bridgett Diaz MD Take 1 tablet (0.5 mg total) by mouth 2 (two) times a day for 5 doses metoprolol tartrate (LOPRESSOR) 25 mg immediate release tablet 12/02/2023 12/14/22 -- Armand Jacinto MD pantoprazole DR (PROTONIX) 40 mg EC tablet 12/02/2023 03/21/23 -- Armand Jacinto MD polyethylene glycol (MIRALAX) 17 gram packet 12/02/2023 12/14/22 -- Armand Jacinto MD verapamil SR (CALAN SR) 120 mg CR tablet 12/02/2023 -- -- Armand Jacinto MD Current Facility-Administered Medications: Saline lock IV, , , Once AND sodium chloride 0.9% flush 0.5-20 mL, 0.5-20 mL, intra-catheter, Q8H SENDY AND sodium chloride 0.9% flush 0.5-20 mL, 0.5-20 mL, intra-catheter, PRN AND Carrier Fluids for Secondary Infusion - 0.9% Sodium Chloride, 30 mL, intravenous, PRN ceFAZolin (ANCEF) 2,000 mg/20 mL in sterile water (premix) 2,000 mg, 2,000 mg, intravenous, Once sodium chloride 0.9% infusion, 50 mL/hr, intravenous, Continuous Social History Tobacco Use Smoking Status Former Types: Cigarettes Smokeless Tobacco Never Alcohol Use: Not At Risk (12/03/2023) AUDIT-C Frequency of Alcohol Consumption: Never Average Number of Drinks: Patient does not drink Frequency of Binge Drinking: Not on file Substance and Sexual Activity Drug Use Not on file Family History Problem Relation Age of Onset Osteoporosis Other Blood Clot Other Vitals: 12/03/23 1042 BP: 130/75 Pulse: 79 Resp: 14 Temp: 36.7 ??C (98.1 ??F) SpO2: 96% PT: No results found for requested labs within last 30 days. INR: No results found for requested labs within last 30 days. APTT: No results found for requested labs within last 30 days. Hgb A1C: No results found for requested labs within last 30 days. CBC RBC: 12/03/2023: 4.06 M/cumm RDW: No results found for requested labs within last 30 days. MCHC: 12/03/2023: 33.4 g/dL MCH: 12/03/2023: 31.0 pg MCV: 12/03/2023: 92.9 fL Hct: 12/03/2023: 37.7 % Hgb: 12/03/2023: 12.6 g/dL WBC: 12/03/2023: 5.8 K/cumm MPV: 12/03/2023: 10.6 fL Platelets: 12/03/2023: 319 K/cumm RDW CV: 12/03/2023: 14.5 % RDW Sd: 12/03/2023: 49.0 fL (H) BMP Glucose: 12/03/2023: 105 mg/dL Calcium: 12/03/2023: 9.0 mg/dL Sodium: 12/03/2023: 136 mmol/L Potassium: 12/03/2023: 4.1 mmol/L CO2: 12/03/2023: 23 mmol/L Chloride: 12/03/2023: 100 mmol/L BUN: 12/03/2023: 10 mg/dL Creatinine: 12/03/2023: 0.59 mg/dL (L) STOP-Bang Total Score: 3 DOS Physical Exam Medical history, medications, and allergies reviewed. Attestation: With today's edits, I endorse the the findings of the H&P dated: 12/03/2023. Airway Exam: Mallampati: III Cervical ROM: FROM TM distance: 2 Cardiovascular Exam: Rate: regular Rhythm: regular Pulmonary Exam: LCTA, bilat EENT Exam: trachea midline Dental Exam: Appears intact Current state: Patient's current state is interactive. Anesthesia Plan ASA 3 My patient is approved for the Anesthesia Controlled Medication protocol when under care of a FORM SETTER/DRIVER Planned anesthesia: MAC Postoperative Plan: No plan for postoperative opioid use. No postoperative mechanical ventilation intended. Patient's planned disposition post procedure is Outpatient. Informed Consent: Discussed plan with FORM SETTER/DRIVER. Anesthesia plan and risks discussed with patient. [...] Action Date Dose Rate Site ceFAZolin (ANCEF) 2,000 mg/20 mL in sterile water (premix) 2,000 mg 2,000 mg, intravenous, at 400 mL/hr, Administer over 3 Minutes, Once, On Sun12/03/23 at 1045, For 1 dose, Pre-Procedure (CV), Administer within 60 minutes of incision., Indications: Prophylaxis, SurgicalIndications:Prophylaxis , Surgical Given 12/03/2023 12:37 PM CDT 2,000 mg fentaNYL (SUBLIMAZE) preservative free injection intravenous, As needed, Starting on Sun12/03/23 at 1225, Anesthesia Intra-op Given 12/03/2023 1:09 PM CDT 50 mcg Given 12/03/2023 12:25 PM CDT 50 mcg lidocaine (cardiac) (XYLOCAINE) preservative free injection intravenous, As needed, Starting on Sun12/03/23 at 1245, Anesthesia Intra-op, Indications: Ventricular ArrhythmiasIndications:Ventricular Arrhythmias Given 12/03/2023 12:45 PM CDT 60 mg midazolam (VERSED) 2 mg/2 mL preservative free injection intravenous, Administer over 2 Minutes, As needed, Starting on Sun12/03/23 at 1225, Anesthesia Intra-op Given 12/03/2023 12:30 PM CDT 1 mg Given 12/03/2023 12:25 PM CDT 1 mg propofoL (DIPRIVAN) 10 mg/mL IV intravenous, As needed, Starting on Sun12/03/23 at 1249, Anesthesia Intra-op Given 12/03/2023 12:55 PM CDT 20 mg Given 12/03/2023 12:53 PM CDT 20 mg Given 12/03/2023 12:50 PM CDT 20 mg sodium chloride 0.9% infusion 50 mL/hr, intravenous, Continuous, Starting on Sun12/03/23 at 1045, Pre-Procedure (CV)Indications:Cryptogenic stroke (HCC) New Bag 12/03/2023 12:25 PM CDT documented in this encounter Care Teams Cottrell Operator Relationship Specialty Start Date End Date Jaden Thakur DO [address] [place] [id number] PCP - General Family Medicine 06/01/23 documented as of this encounter
--- OUTSIDE RECORDS SUMMARY | 2024-03-19 20:53 | XMS_ITS | Encounter Summary ---
Author Organization [facility] Healthcare Address [address] [place] [address] Care Team Providers Care Almond Blancher Hand Name Role Phone Jaden Thakur DO Primary Care Provide r Reason for Visit * Reason Comments Follow-up DOI: Approx 10/2022L ast OV: 06/18/2023Last CSI: 06/18/2023 (Effects lasted approx 2 weeks, starting to wear off) Encounter Details Date Type Department Care Team (Late st Contact Info) Description 07/02/2023 1:45 PM CDT Office Visit [facility] Sports Medicine and Primary Care at [address] [place] [address] Cheli García MD [address] [place] [address] [address] [place] [address] Tear of left acetabular labrum, subsequent encounter (Primary Dx); Left hip pain Social History Tobacco Use Types Packs/Day Years Used Date Smoking Tobacco: Former Cigarettes Smokeless Tobacco: Never Personal Safety Answer Date Recorded Getting School Help Needed Not on file 05/13 Comments Unknown Sex and Gender Information Value Date Recorded Sex Assigned at Not on file 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 Gender Identity Not on file Sexual Orientation Not on file documented as of this encounter Last Filed Vital Signs Vital Sign Reading Time Taken Comments Blood Pressure 102/71 07/02/2023 1:41 PM CDT Pulse 85 07/02/2023 1:41 PM CDT Temperature - - Respiratory Rate - - Oxygen Saturation - - Inhaled Oxygen Concentration - - Weight 102.1 kg (225 lb) 07/02/2023 1:41 PM CDT Height 162.6 cm (5' 4 ) 07/02/2023 1:41 PM CDT Body Mass Index 38.62 07/02/2023 1:41 PM CDT documented in this encounter Patient Instructions * Patient Instructions* Cheli García MD - 07/02/2023 1:45 PM CDT Monitor symptoms I can repeat hip injection every 6 months ir needed and getting good benefit Follow up with me as needed documented in this encounter Progress Notes * Cheli García MD - 07/02/2023 1:45 PM CDT Images from the original note were not included. [facility] Primary [facility] Sports Medicine at [facility] Consult PCP: Jaden Thakur DO Chief Complaint Patient presents with Left Hip - Follow-up DOI: Approx 10/2022 Last OV: 06/18/2023 Last CSI: 06/18/2023 (Effects lasted approx 2 weeks, starting to wear off) FOLLOW UP VISIT Subjective CHIEF COMPLAINT She had concerns including Follow-up of the Left Hip (DOI: Approx 10/2022/Last OV: 06/18/2023/Last CSI: 06/18/2023 (Effects lasted approx 2 weeks, starting to wear off)). HISTORY OF PRESENT ILLNESS Patient here for follow-up left hip pain. Has MRI proven subtle labral tear. At last visit ultrasound guided intra-articular left hip joint injection was done. Patient notes almost 100% relief of pain that she was having in the hip. The groin/anterior hip joint pain has mostly resolved. She still has some tightness to the ITB band area but is doing stretches to help with this. Overall she is veryhappy with the response However, they do want to know what the long-term outcome may be for this Pain Assessment Pain Assessment: 0-10 Pain Score: (Now: 0/10, Worst: 2/10) Pain Location: Hip Pain Orientation: Left Pain Descriptors: Discomfort, Sharp Pain Frequency: Intermittent Clinical Progression: Gradually improving MEDICATIONS She has a current medication list which includes the following prescription(s): aspirin, baclofen, buspirone, cetirizine, cholecalciferol, cyclobenzaprine, divalproex , duloxetine dr, hydrocodone-acetaminophen, hydroxyzine, levetiracetam, metoprolol tartrate, nitrofurantoin monohydrate, pantoprazole dr, polyethylene glycol, and verapamil. REVIEW OF SYSTEMS Review of Systems Objective PHYSICAL EXAM BP 102/71 Pulse 85 Ht 162.6 cm (5' 4 ) Wt 102.1 kg (225 lb) BMI 38.62 kg/m?? Ortho Exam Left hip - no tenderness over the anterior hip or groin. No pain with maximal internal rotation, external rotation or hip flexion. Assessment/Plan Consuelo Elliott was seen today for follow-up. Diagnoses and all orders for this visit: Tear of left acetabular labrum, subsequent encounter Left hip pain Left hip pain is much improved after intra-articular corticosteroid injection. This suggests this is what her main pain generators. Discussed that we hope that she gets a least 6 months of benefit out of this injection. If does get good lasting benefit we can always repeat corticosteroid injection in the future. If fails to see good lasting benefit then I would have her see Orthopedic surgery diddiscuss possible surgery to address the labral tear since her good response to the hip joint injection suggest this is her main pain generator. They are aware the risk of repeat a corticosteroid injections of the hip would be risk for avascular necrosis which could ultimately lead to need for total hip arthroplasty. If patient is not felt a surgical candidate for labral pathology then there is always chance that as long as they understand the high-risk for avascular necrosis with repeat steroid injections we could consider repeating an injection soon as 4 months with caution. I answered their questions to the best of my ability. They will follow up with me as needed An After Visit Summary was printed and given to the patient. Cheli García MD documented in this encounter Plan of Treatment Not on file documented as of this encounter Visit Diagnoses Diagnosis Tear of left acetabular labrum, subsequent encounter- Primary Left hip pain Pain in joint, pelvic region and thigh documented in this encounter Discontinued Medications Medication Sig Discontinue Reason Start Date End Da te HYDROcodone-acetaminophe n (NORCO) 5-325 mg per tabletIndications:Pain Take 1 tablet by mouth every 6 (six) hours as needed 07/02/2023 documented as of this encounter Historical Medications * This list may reflect changes made after this encounter. HYDROcodone-aceta minophen (NORCO) 10-325 mg per tablet Take 1 tablet by mouth every 6 (six) hours as needed 06/12/2023 busPIRone (BUSPAR) 5 mg tablet Take 1 tablet (5 mg total) by mouth 2 (two) times a day 06/29/2023 added in this encounter Care Teams Almond Blancher Hand Relationship Specialty Start Date End Date Jaden Thakur DO [address] [place] [id number] PCP - General Family Medicine 06/01/23 documented as of this encounter
--- OUTSIDE RECORDS SUMMARY | 2024-03-19 20:53 | XMS_ITS | Encounter Summary ---
Author Organization [facility] Address [address] [place] [address] Care Team Providers Care Press Tender Incendiary Grenade Name Role Phone Jaden Thakur DO Primary Care Provide r Reason for Referral * Consultation (Routine) - Closed Specialty Diagnoses / Procedures Referred By Jimena muller Referred To Contact Pain Management Diagnoses Left shoulder pain, unspecified chronicity Superior glenoid labrum lesion of left shoulder, initial encounter Moises Yoon MD [address] [place] [address] [address] [facility] [address] [place] [address] Phone: tel: fax: Prasanna Lee MD [address] [place] [address] [address] Phone: tel: fax: Referral ID Status Reason Start Date Expiration Date V isits Requested Visits Authorized [id number] Closed Specialty Services Required 11/26/2023 12/25/2024 1 1 Question Answer Please select the performing region: [facility] [[id number]] Please select the performing department: [facility] [[id number]] To provider: PRASANNA LEE [[id number]] # of visits: 1 Encounter Details Date Type Department Care Team (Late st Contact Info) Description 11/23/2023 Telephone [facility] Orthopedics and Sports Medicine [address] 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 Yoon, no clearance from Neurology, refer to pain management. Thank you * Telephone Encounter - Jessica Yun MA - 11/23/2023 4:19 PM CDT I called and spoke to patient, she states she could not get an appointment with Neurology, Dr. Jaffe until June and he states he will not clear for surgery. Per patient, he cannot state she would not have a seizure during surgery. Per Patient, she states she received My Chart message from assembly detailer Dr. Jenkins, asking for Dr. Yoon to call him please. Patient states PCP will clear. Thank you [phone] documented in this encounter Plan of Treatment Scheduled Referrals Name Type Priority Associated Diagnoses Orde r Schedule Ambulatory referral to Pain Management Outpatient Referral Routine Left shoulder pain, unspecified chronicity Superior glenoid labrum lesion of left shoulder, initial encounter Expected: 11/27/2023 (Approximate), Expires: 11/25/2024 documented as of this encounter Visit Diagnoses Diagnosis Left shoulder pain, unspecified chronicity- Primary Superior glenoid labrum lesion of left shoulder, initial encounter documented in this encounter Care Teams Press Tender Incendiary Grenade Relationship Specialty Start Date End Date Jaden Thakur DO [address] [place] [address] PCP - General Family Medicine 06/01/23 documented as of this encounter
--- OUTSIDE RECORDS SUMMARY | 2024-03-19 20:53 | XMS_ITS | Encounter Summary ---
Author Organization [facility] Healthcare Address [address] [place] [address] Care Team Providers Care Payroll Accounting Manager Name Role Phone Jaden Thakur Primary Care Provide r Reason for Referral * Consultation (Routine) - Closed Specialty Diagnoses / Procedures Referred By Contac t Referred To Contact Neurology Diagnoses Seizure disorder, complex partial (HCC) Elsi Sexton MD Phone: tel: fax: [facility] [address] [facility] [address] [place] [address] [place] [address] Phone: tel: fax: Referral ID Status Reason Start Date Expiration Date V isits Requested Visits Authorized [id number] Closed Specialty Services Required 06/01/2023 06/30/2024 1 1 Question Answer Please select the performing region: [facility] (All Locations) [[id number]] # of visits: 1 Encounter Details Date Type Department Care Team (Late st Contact Info) Description 06/01/2023 Orders Only Neurology Elsi Sexton MD [address] [place] [address] Seizure disorder, complex partial (HCC) (Primary Dx) Social History Tobacco Use Types Packs/Day Years Used Date Smoking Tobacco: Never Smokeless Tobacco: Never Personal Safety Answer Date Recorded Getting School Help Needed Not on file 05/13 Comments Unknown Sex and Gender Information Value Date Recorded Sex Assigned at Not on file 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 Gender Identity Not on file Sexual Orientation Not on file documented as of this encounter Plan of Treatment Scheduled Referrals Name Type Priority Associated Diagnoses Order Schedule Ambulatory referral to Neurology Outpatient Referral Routine Seizure disorder, complex partial (HCC) Expected: 06/15/2023 (Approximate), Expires: 05/31/2024 documented as of this encounter Visit Diagnoses Diagnosis Seizure disorder, complex partial (HCC)- Primary Localization-related (focal) (partial) epilepsy and epileptic syndromes with complex partial seizures, without mention of intractable epilepsy documented in this encounter Care Teams Payroll Accounting Manager Relationship Specialty Start Date End Date Jaden Thakur DO [address] [place] [address] PCP - General Family Medicine 06/01/23 documented as of this encounter
--- OUTSIDE RECORDS SUMMARY | 2024-03-19 20:53 | XMS_ITS | Encounter Summary ---
Author Organization [facility] Address [address] [place] [address] Phone Care Team Providers Care Software Applications Engineer Name Role Phone Jaden Thakur Primary Care Provide r Encounter Details Date Type Department Care Team (Late st Contact Info) Description 09/20/2023 Telephone [facility] [address] [facility] Medical Office Building [address] [place] [phone] Angelica Cochran MD [address] [place] [address] Social History Tobacco Use Types Packs/Day [...] on file 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 PIL sent via mail and [employer]. * Telephone Encounter - Nikolas Green W - 09/20/2023 8:19 AM CDT Consuelo Jimenez:1980, is scheduled for ILR implant with anesthesia on 11/05/[address] Cochran. The pt will be called by the [facility] with the arrival time 1-3 days prior to procedure. Office visit note or progress note in chart with the plan: Yes The patient : Will be discharged the same day. The patient will need TPAP Testing: No testing required Please include the following medication instructions: Do not eat or drink after midnight the morning of your procedure. Do not take any morning medications the morning of the procedure except take your Depakote, Keppra and Aspirin with sips of water. PRE-CERT: No Pre-Cert message needed Please schedule the following follow up appointments: PIC appointment: please schedule 1-2 weeks after Implant (order is in) The Patient case has been placed on the EP calendar. Please mail Patient information letter to patient. Nikolas Moscoso Pt is called and made aware 11/05/23 will work and is given med and NPO instructions and is made aware rough time of day for procedure, that she will get a call with the exact arrival time, that she will get a letter with detailed instructions and to call us for questions or changes in her health. documented in this encounter Plan of Treatment Not on file documented as of this encounter Visit Diagnoses Not on filedocumented in this encounter Care Teams Software Applications Engineer Relationship Specialty Start Date End Date Jaden Thakur DO [address] [place] [address] PCP - General Family Medicine 06/01/23 documented as of this encounter
--- OUTSIDE RECORDS SUMMARY | 2024-03-19 20:53 | XMS_ITS | Encounter Summary ---
Author Organization [facility] Healthcare Address [address] [place] [address] Care Team Providers Care Night Patrol Inspector Name Role Phone Jaden Thakur DO Primary Care Provide r Reason for Visit * Reason Comments UTI Entered automaticall y based on patient selection in [employer]. 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 Gender Identity Not on file Sexual Orientation Not on file documented as of this encounter Ordered Prescriptions Prescription Sig Dispense Quantity Refills Last Filled Start Date End Date cephalexin (KEFLEX) 500 mg capsuleIndications :Acute cystitis without hematuria Take 1 capsule (500 mg total) by mouth 2 (two) times a day for 5 days 10 capsule 10/24/2023 4 documented in this encounter Miscellaneous Notes * E-Visit Note - kOsana Randolph NP - 10/24/2023 8:35 PM CDT Consuelo Jimenez 10/24/2023 E-Visit Submission Subjective/Objective: Consuelo Jimenez contacted the office today via e-visit for UTI. The patient-submitted questionnaire was assessed for pertinent information and the patient's problem list, medication list, and allergies were reviewed as part of the e-visit. The chart was updated to identify any changes in these areas. I have reviewed the most recent progress note prior to this visit. Patient reports fouls smelling urine for two days or less. No fever or chills. Reports having an exaggerated sensation of need to pass urine. Assessment: Diagnosis Plan 1. Acute cystitis without hematuria cephalexin (KEFLEX) 500 mg capsule Plan: Keflex 500 mg twice a day for 5 days. Pt was just on Macrobid one month ago. Unable to call in XMPie at this time due to interaction with hydrocodone. If you develop symptoms of yeast infection such as vaginal discharge or itching, please follow up. You may use OTC monistat for symptoms of yeast infection If you develop fever or chills, blood in urine or worsening symptoms please be seen in person. The patient was given information regarding any new medication(s) prescribed, if applicable, as well as any axjf-jqd-auvrcet remedies. She was given instructions regarding follow up and timeframe if symptoms worsen or don???t improve. These instructions were included in the [employer] message reply tothe patient. Patient Instructions were included in the message reply to patient. My total encounter time on 10/24/2023 was 5 minutes which was spent in the activities documented inthe note. New Medications Ordered This Visit cephalexin (KEFLEX) 500 mg capsule Sig: Take 1 capsule (500 mg total) by mouth 2 (two) times a day for 5 days Dispense: 10 capsule Refill: 0 Oksana Randolph NP documented in this encounter Plan of Treatment Not on file documented as of this encounter Visit Diagnoses Diagnosis Acute cystitis without hematuria- Primary documented in this encounter Care Teams Night Patrol Inspector Relationship Specialty Start Date End Date Jaden Thakur DO [address] [place] [address] PCP - General Family Medicine 06/01/23 documented as of this encounter
--- OUTSIDE RECORDS SUMMARY | 2024-03-19 20:53 | XMS_ITS | Encounter Summary ---
Author Organization [facility] Healthcare Address [address] [place] [address] Care Team Providers Care Lending Advisor Name Role Phone Jaden Thakur Primary Care Provide r Reason for Referral * Consultation (Routine) - Closed Specialty Diagnoses / Procedures Referred By Contac t Referred To Contact Pain Management Diagnoses Left shoulder pain, unspecified chronicity Moises Yoon MD [address] [place] [address] DR ASAD [facility] [address] [place] [address] Phone: tel: fax: [facility] [address] [facility] [place] [address] [place] [address] Phone: tel: fax: Referral ID Status Reason Start Date Expiration Date V isits Requested Visits Authorized [id number] Closed Specialty Services Required 11/21/2023 12/20/2024 1 1 Question Answer Please select the performing region: External Order [171] To loc/pos [facility] [[id number]] # of visits: 1 Encounter Details Date Type Department Care Team (Late st Contact Info) Description 11/21/2023 Orders Only [facility] Medical Group Orthopedics and Sports Medicine [address] [facility] [address] [place] [phone] Moises Yoon MD [address] [facility] [address] [place] [address] Left shoulder pain, unspecified chronicity (Primary Dx) Social History Tobacco Use Types [...] on file 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 Gender Identity Not on file Sexual Orientation Not on file documented as of this encounter Plan of Treatment Scheduled Referrals Name Type Priority Associated Diagnoses Orde r Schedule Ambulatory referral to Pain Management Outpatient Referral Routine Left shoulder pain, unspecified chronicity Expected: 12/05/2023 (Approximate), Expires: 11/20/2024 documented as of this encounter Visit Diagnoses Diagnosis Left shoulder pain, unspecified chronicity- Primary documented in this encounter Care Teams Lending Advisor Relationship Specialty Start Date End Date Jaden Thakur DO [address] [place] [address] PCP - General Family Medicine 06/01/23 documented as of this encounter
--- OUTSIDE RECORDS SUMMARY | 2024-03-19 20:53 | XMS_ITS | Encounter Summary ---
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
--- OUTSIDE RECORDS SUMMARY | 2024-03-19 20:53 | XMS_ITS | Encounter Summary ---
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
--- OUTSIDE RECORDS SUMMARY | 2024-03-19 20:53 | XMS_ITS | Encounter Summary ---
Author Organization [facility] Healthcare Address [address] [place] [address] Care Team Providers Care Vascular Technologist Name Role Phone Jaden Thakur DO Primary Care Provide r Reason for Visit * Reason Comments UTI Entered automaticall y based on patient selection in [employer]. 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 C/o 3-6 day h/o increased urinary frequency and urgency, cloudy urine with an unusual smell. Deniesfevers or blood in urine. States it feels like previous UTI's. States [...] prescribed, if applicable, as well as any jrhe-ffh-oqljmbw remedies. She was given instructions regarding follow up and timeframe if symptoms worsen or don???t improve. These instructions were included in the [employer] message reply tothe patient. Patient Instructions were included in the message reply to patient. My total encounter time on 07/01/2023 was 5 minutes which was spent in [...] without hematuria- Primary documented in this encounter Discontinued Medications Medication Sig Discontinue Reason Start Date End Da te nitrofurantoin monohydrate (MACROBID) 100 mg capsule Take 1 capsule (100 mg total) by mouth 2 (two) times a day 06/04/2023 07/01/2023 documented as of this encounter Care Teams Vascular Technologist Relationship Specialty Start Date End Date Jaden Thakur DO [address] [place] [address] PCP - General Family Medicine 06/01/23 documented as of this encounter
--- OUTSIDE RECORDS SUMMARY | 2024-03-19 20:53 | XMS_ITS | Encounter Summary ---
Author Organization [facility] Address [address] [place] [address] Phone Care Team Providers Care Melter Supervisor Electric Arc Furnace Name Role Phone Jaden Thakur Primary Care Provide r Encounter Details Date Type Department Care Team (Late st Contact Info) Description 09/26/2023 Telephone [facility] Cardiology [address] [facility] 8th [place] [address] [place] [address] Angelica Cochran MD [address] [facility] [address] [place], [place] [phone] Social History Tobacco Use Types Packs/Day Years [...] on file 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 Updated PIL sent via mail and [employer]. * Telephone Encounter - Nikolas Green - 10/08/2023 3:03 PM CDT Just checking. Was new letter with new PIC date sent since pt changed her procedure date? Thank you, Nikolas * Telephone Encounter - Nikolas Green - 10/03/2023 12:58 PM CDT Pt's ILR implant date is changed from 11/05/23 to 12/03/23. Please let precert know. Please reschedule her PIC appointment and send a new letter with the new procedure and PIC dates. Thank you, Nikolas PA in [facility] moved pt's case in [facility] and this nurse moved pt's case on the EP Calendar and pt is aware. * Telephone Encounter - Nikolas Green - 10/03/2023 11:42 AM CDT Pt is called back and this nurse talks to her and she agrees with plan for 12/03/23. She is aware ofdate offered by for procedure with anesthesia and is aware her EEG if done 11/05 would not work well with 11/04 anesthesia. Pt is aware a new letter with new dates for the procedure will be coming. * Telephone Encounter - Pooja Garsia - 10/03/2023 11:09 AM CDT Pt returning call from the nurse. Pt states that she rather keep her procedure date that is scheduled for 11/04. * Telephone Encounter - Nikolas Green - 10/03/2023 10:38 AM CDT LMOR for pt asking if 12/03/23 will work for her procedure. Will try to reach pt again later. * Telephone Encounter - Nikolas Green - 10/02/2023 5:22 PM CDT , Do you have an alternate date I can offer her? Thank you, Nikolas * Telephone Encounter - Nikolas Green - 09/26/2023 3:09 PM CDT , Pt has an ILR implant scheduled for 11/05/23. Pt states she is being admitted for an EEG on 11/06/23 and the anesthesia could have an effect on her EEG so pt would like to reschedule the ILR implant for another day. She said late November and December are open. She also indicated that if there was not an opening in a long time she would be open to having the ILR implant without anesthesia on 11/05/23. Do you have a date/case # that I can offer her? Thanks, Nikolas * Telephone Encounter - Arlyn Munoz - 09/26/2023 2:50 PM CDT Sammie Pt called and would like to reschedule 11/04 procedure. documented in this encounter Plan of Treatment Not on file documented as of this encounter Visit Diagnoses Not on filedocumented in this encounter Care Teams Melter Supervisor Electric Arc Furnace Relationship Specialty Start Date End Date Jaden Thakur DO [address] [place] [address] PCP - General Family Medicine 06/01/23 documented as of this encounter
--- OUTSIDE RECORDS SUMMARY | 2024-03-19 20:53 | XMS_ITS | Encounter Summary ---
Author Organization [facility] Address [address] [place] [address] Phone Care Team Providers Care Lime Kiln And Recausticizing Operator Name Role Phone Jaden Thakur Primary Care Provide r Reason for Visit * Diagnostic Imaging (Routine) - Authorized Specialty Diagnoses / Procedures Referred By Contac t Referred To Contact Diagnoses Tachycardia Leg swelling Procedures US Vein Duplex Lower Extremity Bilateral Complete Qasim Ross MD [address] [facility] [address] [place] [address] Phone: tel: fax: [address] [phone] Referral ID Status Reason Start Date Expiration Date V isits Requested Visits Authorized [id number] Authorized 05/28/2023 06/26/2024 99 99 Encounter Details Date Type Department Care Team (Late st Contact Info) Description 07/09/2023 1:00 PM CDT Ancillary Procedure [facility] at the [place] [facility] [address] 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 Gender Identity Not on file Sexual Orientation Not on file documented as of this encounter Plan of Treatment Not on file documented as of this encounter Procedures Procedure Name Priority Date/Time Associated Diagnosis Comments US VEIN DUPLEX LOWER EXTREMITY BILATERAL COMPLETE Schedule Routine, Read Routine (OP Routine) 07/09/2023 1:26 PM CDT Tachycardia Leg swelling documented in this encounter Results * US Vein Duplex Lower Extremity Bilateral Complete (07/09/2023 1:26 PM CDT) Anatomical Region Laterality Modality Vascular Bilateral Ultrasound 07/09/2023 1:01 PM CDT Narrative 07/10/2023 12:39 AM CDT [facility] - Department of Vascular Surgery, Vascular Laboratory [address] [place] [address] Lower Extremity Venous Ultrasound Report Patient Name: TRICE JIMENEZ : 1980 (42y 8m) Study Date: 07/09/2023 1:01:26 PM Gender: F Tech: TT Location: [facility] Ref Provider: QASIM ROSS ?Quality: Adequate Order Provider: QASIM ROSS PROCEDURES: Vascular Report: Venous Duplex imaging was performed bilaterally in the lower extremities. The common femoral, femoral, popliteal, posterior tibial, peroneal veins were evaluated for patency, spontaneity and phasicity with Doppler, compression and augmentation maneuvers. Great saphenous vein proximal at the junction was evaluated with compression maneuvers. INDICATIONS: Tachycardia - FINDINGS: Performing Equipment Operator Intermodal Yard: Devan Hill RVT. Bilateral: Venous Doppler signals in the bilateral lower extremity are within normal limits for spontaneity and phasicity and respond normally to augmentation maneuvers. No evidence of deep vein thrombus by duplex, proximal to the calf. CONCLUSIONS: 1. There is no evidence of acute deep vein thrombosis in the lower extremities bilaterally. Noninvasive venous studies cannot rule out isolated calf vein obstruction. HISTORY: Not identified. PREVIOUS STUDIES: No previous studies for comparison. DISCLAIMER: The study images and the final report will be retained in the patient chart by the Vascular Laboratory for the legally required time period. This chart constitutes the legal record of any testing performed. ATTESTATION: I have reviewed and interpreted the pertinent images and measurements of this study. I attest to the conclusions in the final report that is provided above. Electronically Signed By: Asaf Ridley MD [facility] 2023-07-10 00:38:44 CDT Procedure Note Asaf Ridley MD - 07/10/2023 [facility] - Department of Vascular Surgery,Vascular Laboratory [address] [place] [address] Lower Extremity Venous Ultrasound Report Patient Name: TRICE JIMENEZ : 1980 (42y 8m) Study Date: 07/09/2023 1:01:26 PM Gender: F Tech: TT Location: [facility] Ref Provider: QASIM ROSS Quality: Adequate Order Provider: QASIM ROSS PROCEDURES: Vascular Report: Venous Duplex imaging was performed bilaterally in the lower extremities.The common femoral, femoral, popliteal, posterior tibial, peroneal veins wereevaluated for patency, spontaneity and phasicity with Doppler, compression and augmentationmaneuvers. Great saphenous vein proximal at the junction was evaluated with compressionmaneuvers. INDICATIONS: Tachycardia - FINDINGS: Performing Equipment Operator Intermodal Yard: Devan Hill RVT. Bilateral: Venous Doppler signals in the bilateral lower extremity are within normallimits for spontaneity and phasicity and respond normally to augmentation maneuvers.No evidence of deep vein thrombus by duplex, proximal to the calf. CONCLUSIONS: 1. There is no evidence of acute deep vein thrombosis in the lowerextremities bilaterally. Noninvasive venous studies cannot rule out isolated calf veinobstruction. HISTORY: Not identified. PREVIOUS STUDIES: No previous studies for comparison. DISCLAIMER: The study images and the final report will be retained in the patientchart by the Vascular Laboratory for the legally required time period. This chartconstitutes the legal record of any testing performed. ATTESTATION: I have reviewed and interpreted the pertinent images and measurements ofthis study. I attest to the conclusions in the final report that is provided above. Electronically Signed By: Asaf Ridley MD [facility] 2023-07-10 00:38:44 CDT us Qasim Ross MD IMG US PROCEDURES Final Result documented in this encounter Visit Diagnoses Diagnosis Tachycardia Unspecified tachycardia Leg swelling Swelling of limb documented in this encounter Care Teams Lime Kiln And Recausticizing Operator Relationship Specialty Start Date End Date Jaden Thakur DO [address] [place] [phone] PCP - General Family Medicine 06/01/23 documented as of this encounter
--- OUTSIDE RECORDS SUMMARY | 2024-03-19 20:54 | XMS_ITS | Encounter Summary ---
Author Organization [facility] Address [address] [place] [address] Phone Care Team Providers Care Rate Setter Name Role Phone Unknown, Notinfile Primary Care Provider Unavail able Reason for Referral * Cardiology (Routine) - Closed Specialty Diagnoses / Procedures Referred By Jimena t Referred To Contact Diagnoses Tachycardia Leg swelling PFO (patent foramen ovale) Endocarditis, unspecified chronicity, unspecified endocarditis type Procedures Transesophageal Echo (NGOC) W Doppler/CF TRANSESOPHAGEAL ECHO (NGOC) W DOPPLER/CF TRANSESOPHAGEAL ECHO (NGOC) W DOPPLER/CF WO CONTRAST TRANSESOPHAGEAL ECHOCARDIOGRAM (NGOC) COMPLETE W/ CONTRAST TRANSESOPHAGEAL ECHO (NGOC) W DOPPLER/CF W CONTRAST TRANSESOPHAGEAL ECHO (NGOC) W LTD DOPPLER/CF WO CONTRAST TRANSESOPHAGEAL ECHOCARDIOGRAM (NGOC) COMPLETE W/ COLOR TRANSESOPHAGEAL ECHO (NGOC) WO DOPPLER/CF W CONTRAST Qasim Ross MD [address] [facility] [address] [place] [address] Phone: tel: fax: [address] [phone] Referral ID Status Reason Start Date Expiration Date Visits Re quested Visits Authorized [id number] Closed 05/28/2023 06/26/2024 1 1 * Diagnostic Imaging (Routine) - Authorized Specialty Diagnoses / Procedures Referred By Jimena t Referred To Contact Diagnoses Tachycardia Leg swelling Procedures US Vein Duplex Lower Extremity Bilateral Complete Qasim Ross MD [address] [address] Phone: tel: fax: [facility] [address] [place] [address] Referral ID Status Reason Start Date Expiration Date V isits Requested Visits Authorized [id number] Authorized 05/28/2023 06/26/2024 99 99 * Cardiology (Routine) - Authorized Specialty Diagnoses / Procedures Referred By Contac t Referred To Contact Diagnoses Tachycardia Procedures ECG 12 lead Qasim Ross MD [address] [address] Phone: tel: fax: [facility] (All Locations) Referral ID Status Reason Start Date Expiration Date V isits Requested Visits Authorized [id number] Authorized 05/28/2023 06/26/2024 1 1 Encounter Details Date Type Department Care Team (Late st Contact Info) Description 05/28/2023 2:00 PM CDT Office Visit [facility] Cardiology [address] [phone] Qasim Ross MD [address] [address] Tachycardia (Primary Dx); Leg swelling; PFO (patent foramen ovale); Endocarditis, unspecified chronicity, unspecified endocarditis type Social History Tobacco Use Types Packs/Day Years Used Date Smoking Tobacco: Never Smokeless Tobacco: Never Personal Safety Answer Date Recorded Getting School Help Needed Not on file 05/13 Comments Unknown Sex and Gender Information Value Date Recorded Sex Assigned at Not on file 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 Gender Identity Not on file Sexual Orientation Not on file documented as of this encounter Last Filed Vital Signs Vital Sign Reading Time Taken Comments Blood Pressure 108/75 05/28/2023 2:20 PM CDT Pulse 78 05/28/2023 2:20 PM CDT Temperature 36.7 ??C (98.1 ??F) 05/28/2023 2:20 PM CD T Respiratory Rate - - Oxygen Saturation 92% 05/28/2023 2:20 PM CDT Inhaled Oxygen Concentration - - Weight 100.7 kg (222 lb) 05/28/2023 2:20 PM CDT Height 162.6 cm (5' 4 ) 05/28/2023 2:20 PM CDT Body Mass Index 38.11 05/28/2023 2:20 PM CDT documented in this encounter Patient Instructions * Patient Instructions* Shauna Patterson RN - 05/28/2023 2:00 PM CDT NGOC: 07/09/23 at 07:00 AM at [facility]. *Have nothing to eat or drink after midnight and you can have sips of water for morning meds *Have a ride home afterwards *The cath lab tech nurses will call you a few days before to go over everything documented in this encounter Progress Notes * Qasim Ross MD - 05/28/2023 2:00 PM CDT Images from the original note were not included. Cardiovascular Division [facility] at [facility], [facility] Physicians [facility] [address] [place], [place] [id number] New Cardiology Clinic Visit Patient name: Consuelo Jimenez Date of : 1980 Date of Service: 05/28/2023 Primary Care Provider: Dr Pedro koenig MD Dear Jaden Hayes, DO We had the pleasure of seeing Consuelo Jimenez at [facility] office in [place]. As you recall, she is a pleasant 42 y.o. female that we are seeing with following medical problems Visit Diagnosis 1. 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 2. Dyslipidemia 3. Hypertension. 4. Possible vegetation History of Present Illness She is a 42-year-old female who had a stroke in October of 2022. She had a left- sided weakness. She was admitted to [facility]. She had a NGOC done the thought was that she may have a vegetation this was a presumptive diagnosis her blood cultures was negative she was not clinically sick prior to the episode of stroke no other signs of endocarditis noted. She had no PFO. She states she had 1st NGOC done showed questionable vegetation and dad was not visualized on the2nd NGOC. She did get empiric treatment for endocarditis. Meantime after the stroke she had cerebraledema she requiring a removal of the scalp Shah to relieve the cerebral edema she subsequently und erwent a cranioplasty on January 10, 2023. Prior to this surgery her 2nd NGOC was done on January 05, 2023. She stated the possibility of fibroelastoma was discussed with her since the vegetation wasnot visualized on the 2nd NGOC the thought was this is possible endocarditis. She came for cardiac 2nd opinion. At present she is still weak on the left side of the body. No history of seizures. No history of loss of consciousness. No chest pain. No palpitation. No other history suggestive endo carditis or thromboembolic phenomena prior to this episode patient was healthy. No history of dental problems. No history [...] no drug abuse. Social History Tobacco Use Smoking status: Not on file Smokeless tobacco: Not on file Substance and Sexual Activity Drug use: Not on file Sexual activity: Not on file Alcohol Use: Not At Risk (04/10/2019) Received from [facility] AUDIT-C Frequency of Alcohol Consumption: Monthly or less Average Number of Drinks: 1 or 2 Frequency of Binge Drinking: Never Medication She is on aspirin 81 mg a day. Objective Vitals & Physical Exam Blood pressure 108/75, pulse 78, temperature 36.7 ??C (98.1 ??F), height 162.6 cm (5' 4 ), weight 100.7 kg (222 lb), SpO2 92%. GEN: pleasant female in NAD; alert, comfortable, [...] Studies Personally reviewed in clinic by myself Echo 01/05/23 at [facility] Left Ventricle: Left ventricle size is normal. [...] contrast. The probe was inserted by the veneer joiner. There was minimal probe insertion difficulty. Moderate sedation was administered. Sedation was managed by the veneer joiner. Lidocaine administered during the study. 7 mg of midazolam administered during the study. 175 mcg of fentanyl administered during the study. There were no complications during the procedure. Prior Study Prior NGOC study available for comparison. Prior study date: 10/23/2022. Changes noted compared to prior study. 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 Echo 11/06/22 Left Ventricle: Left ventricle size is normal. [...] e' septal velocity is 10.702 cm/s. Right ventricle size is normal. Normal free wall thickness. RV wall thickness is 0.5 cm. Normal wall motion. Normal systolic function. TAPSE is 2.324 cm. Fractional area change (FAC) is 49.70%. Left atrium size is normal. Left atrium volume index is 25.1 mL/m2. The interatrial septum appears normal with no evidence of a shunt by color flow Doppler. No mass present. Estimated right atrial pressure is normal (~3 mmHg). IVC is normal in size. SVC was not assessed. Estimated sPAP is 23.0 mmHg. Estimated RVSP is 23.0 mmHg. RAP is 3.0 mmHg. Mean PA pressure of 15 mmHg. PVR < 1.5 Wood units. Normal valve morphology nd function. No pericardial effusion. Normal sized annulus, sinus of Valsalva (aortic [...] with left-sided weakness the etiology is unclear. I recommend to repeat the NGOC at [facility].. Previous NGOC showed no evidence of PFO. Will also get a lower extremity venous Doppler to rule out DVT. It has not clear she had hypercoagulable workup done or not. She is currently onaspirin a day she will continue that. She also has a dental appointment in a week time to make surethere is no infection in her root canals. She is getting physical therapy for her stroke. Thank you for the opportunity to participate in the care of this wonderful patient. We will plan onseeing Consuelo Mehnaz after ngoc Please do not hesitate to contact us with any questions or concerns that may arise in the interim. Qasim Ross M.D., F.A.C.C., M.B.A. topographic computator Cardiovascular Division [facility] Platform Mill Supervisor [facility] [place] [address] This note contains information and findings from [...] concerns about verbage aboveplease contact me at [phone]. documented in this encounter Plan of Treatment Not on file documented as of this encounter Procedures Procedure Name Priority Date/Time Associated Diagnosis Comments ECG 12-LEAD Routine 05/28/2023 Tachycardia documented in this encounter Results * US Vein Duplex Lower Extremity Bilateral Complete (07/09/2023 1:26 PM CDT) Anatomical Region Laterality Modality Vascular Bilateral Ultrasound 07/09/2023 1:01 PM CDT Narrative 07/10/2023 12:39 AM CDT [facility] - Department of Vascular Surgery, Vascular Laboratory [address] [place] [address] Lower Extremity Venous Ultrasound Report Patient Name: CONSUELO JIMENEZ : 1980 (42y 8m) Study Date: 07/09/2023 1:01:26 PM Gender: F Tech: TT Location: [facility] Ref Provider: QASIM ROSS ?Quality: Adequate Order Provider: QASIM ROSS PROCEDURES: Vascular Report: Venous Duplex imaging was performed bilaterally in the lower extremities. The common femoral, femoral, popliteal, posterior tibial, peroneal veins were evaluated for patency, spontaneity and phasicity with Doppler, compression and augmentation maneuvers. Great saphenous vein proximal at the junction was evaluated with compression maneuvers. INDICATIONS: Tachycardia - FINDINGS: Performing Captain Room Service: Devan Hill RVT. Bilateral: Venous Doppler signals [...] above. Electronically Signed By: Asaf Ridley MD FACS 2023-07-10 00:38:44 CDT Procedure Note Asaf Ridley MD - 07/10/2023 [facility] - Department of Vascular Surgery,Vascular Laboratory [address] [place] [address] Lower Extremity Venous Ultrasound Report Patient Name: CONSUELO JIMENEZ : 1980 (42y 8m) Study Date: 07/09/2023 1:01:26 PM Gender: F Tech: TT Location: [facility] Ref Provider: QASIM ROSS Quality: Adequate Order Provider: QASIM ROSS PROCEDURES: Vascular Report: Venous Duplex imaging was performed bilaterally in the lower extremities.The common femoral, femoral, popliteal, posterior tibial, peroneal veins wereevaluated for patency, spontaneity and phasicity with Doppler, compression and augmentationmaneuvers. Great saphenous vein proximal at the junction was evaluated with compressionmaneuvers. INDICATIONS: Tachycardia - FINDINGS: Performing Captain Room Service: Devan Hill RVT. Bilateral: Venous Doppler signals [...] above. Electronically Signed By: Asaf Ridley MD FACS 2023-07-10 00:38:44 CDT Qasim Ross MD IMG US PROCEDURES Final Result * TRANSESOPHAGEAL ECHO (NGOC) W DOPPLER/CF WO CONTRAST (07/09/2023 10:22 AM CDT) Anatomical Region Laterality Modality Echocardiography 07/09/2023 8:30 AM CDT Narrative 07/11/2023 9:54 AM CDT Patient name: Consuelo Jimenez Date of test: 07/09/2023 Date of : 1980 (F) Hospital #: [id number] ?Location: [facility] Cardiac Diagnostic Lab Interpreted by: Fazal Arrington MD. Captain Room Service: Farooq White MD RN: Reason for Test: [...] 2=Hypo 3=Akinetic 4=Dyskin. 5=Aneurysm 0=Not visualized) Short Dorris-Gastric:=1 S=1 I=1 P=1 L=1 A=1 Long Dorris-Gastric:BP=1 BA=1 MP=1 MA=1 AP=1 AA=1 Chamber Dimensions: RA: Normal LA: Normal RV: Normal LV: Normal LV function: Normal left ventricular systolic function RV function: Normal Pericardium: No pericardial effusion seen Diastolic function: ??Atrial Septum: Normal Wall Thickness: RV: Normal LV: Normal Sedation/Tolerance: ??Sedation: NGOC performed with intravenous conscious sedation. ??Meds Admin: [...] no MS, normal TV, normal PV. ? NGOC Summary ? Farooq White MD performed the NGOC probe placement with Fazal Arrington MD. present. [...] MD. Confirmed on ??07/11/2023 - 09:54:08 by Fazal Arrington MD. ?? Electric Sign Assembler: Farooq White MD By signing this report, the attending veneer joiner certifies that he or she has personally supervised and interpreted the echocardiogram and has reviewed and or edited and agrees with the written comments contained within the report. Procedure Note Fazal Arrington MD - 07/11/2023 Patient name: Consuelo Jimenez Date of test: 07/09/2023 Date of : 1980 (F) Hospital #: [id number] Location: [facility] Cardiac Diagnostic Lab Interpreted by: Fazal Arrington MD. Captain Room Service: Farooq White MD RN: Reason for Test: [...] 2=Hypo 3=Akinetic 4=Dyskin. 5=Aneurysm 0=Not visualized) Short Dorris-Gastric:=1 S=1 I=1 P=1 L=1 A=1 Long Dorris-Gastric:BP=1 BA=1 MP=1 MA=1 AP=1 AA=1 Chamber Dimensions: RA: Normal LA: Normal RV: Normal LV: Normal LV function: Normal left ventricular systolic function RV function: Normal Pericardium: No pericardial effusion seen Diastolic function: Atrial Septum: Normal Wall Thickness: RV: Normal LV: Normal Sedation/Tolerance: Sedation: NGOC performed with intravenous conscious sedation. Meds Admin: [...] , no MS, normal TV, normal PV. NGOC Summary Farooq White MD performed the NGOC probe placement with Fazal Arrington MD. present. [...] 07/11/2023 - 09:54:08 by Fazal Arrington MD. Electric Sign Assembler: Farooq White MD By signing this report, the attending veneer joiner certifies that he or she has personally supervised and interpreted the echocardiogram and has reviewed and or edited and agrees with the written comments contained within the report. us Qasim Ross MD CV ECHO PROCEDURES Final Resul t * ECG 12 lead (05/28/2023) us Qasim Ross MD ECG ORDERABLES Final Result documented in this encounter Visit Diagnoses Diagnosis Tachycardia- Primary Unspecified tachycardia Leg swelling Swelling of limb PFO (patent foramen ovale) Ostium secundum type atrial septal defect Endocarditis, unspecified chronicity, unspecified endocarditis type Tachycardia Unspecified tachycardia Leg swelling Swelling of limb PFO (patent foramen ovale) Ostium secundum type atrial septal defect Endocarditis, unspecified chronicity, unspecified endocarditis type Tachycardia Unspecified tachycardia Leg swelling Swelling of limb documented in this encounter Historical Medications * This list may reflect changes made after this encounter. HYDROcodone-aceta minophen (NORCO) 5-325 mg per tabletIndications :Pain Take 1 tablet by mouth every 6 (six) hours as needed 07/02/2023 hydrOXYzine (VISTARIL) 25 mg capsule Take 1 capsule (25 mg total) by mouth 3 (three) times a day as needed for itching 12/18/2023 verapamiL (CALAN) 40 mg tablet Take 125 mg by mouth every 8 (eight) hours 12/14/2022 09/25/2023 polyethylene glycol (MIRALAX) 17 gram packet 1 packet (17 g total) 2 (two) times a day as needed 12/14/[address] (PROTONIX) 40 mg EC tablet Take 1 tablet (40 mg total) by mouth daily 03/21/2023 metoprolol tartrate (LOPRESSOR) 25 mg immediate release tablet Take 1 tablet (25 mg total) by mouth 2 (two) times a day 12/14/2022 levETIRAcetam (KEPPRA) 500 mg tablet Take 1 tablet (500 mg total) by mouth 2 (two) times a day 01/11/2023 06/14/[address] (CYMBALTA) 60 mg capsule Take 1 capsule (60 mg total) by mouth daily 02/15/2023 cyclobenzaprine (FLEXERIL) 5 mg tablet Take 1 tablet (5 mg total) by mouth 3 (three) times a day 12/14/2022 cholecalciferol 25 mcg (1,000 unit) tablet 2 tablets (2,000 Units total) daily 12/14/2022 cetirizine 10 mg tablet,disintegra ting Take 10 mg by mouth nightly baclofen (LIORESAL) 5 mg tablet Take 2 tablets (10 mg total) by mouth daily 12/14/2022 02/12/2024 aspirin 325 mg tablet Take 81 mg by mouth daily 12/18/2023 added in this encounter Care Teams Rate Setter Relationship Specialty Start Date End Date Unknown, Notinfile PCP - General 05/14/23 05/31/23 documented as of this encounter
--- OUTSIDE RECORDS SUMMARY | 2024-03-19 20:54 | XMS_ITS | Encounter Summary ---
Author Organization [facility] Address [address] [place] [address] Phone Care Team Providers Care Enrollment Eligibility Representative Name Role Phone Unknown, Notinfile Primary Care Provider Unavail able Reason for Visit * Reason Onset Date Comments New Patient 05/15/2023 Encounter Details Date Type Department Care Team (Late st Contact Info) Description 05/15/[address] [facility] Cardiology [address] 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 Faxed stat request for records and images to [facility] hospital. Unable to update care everywhere as duplicate info recognized. RION DEVELOPER RION DEVELOPER * Telephone Encounter - Jasmine Rivera - 05/15/2023 3:35 PM CST Diagnosis/Reason for Appointment: Recent stroke, cardiac check up Transferring care from [facility] Referring Physician: Self referral Ref Ph: If Referring MD is not PCP, list specialty: Triage Questions Yes No Who/Where/When/Notes Have you ever been diagnosed with cancer, or undergone cancer treatments? [] [x] If 'Yes', Schedulefirst available with Cardio-Oncology If yes where were you treated? Have you ever seen a Collarette Separator in an office setting? [x] [] Dr. Jayme Lira at [facility] IF SCHEDULING PATIENT WITH DONG Have you had a baby in the last year or are you ? [] [] Have you had heart or blood pressure problems during a previous ? [] [] Dr. Arlyn Richards Patients only: Are you a hemodialysis or peritoneal dialysis patient? (If yes then patient must be referred from another MD, DO NOT SCHEDULE) [] [x] Patient History Questions Yes No Where/When/Notes Have you EVER been hospitalized for ANY cardiac issue? [] [x] Have you ever had any cardiac testing, imaging, or procedures? (Testing - echo, EKG, stress) (Imaging - Cardiac MRI, CT or calcium scoring) (Procedure - Ablation, Cardioversion, CABG) [x] [] SARAH's, EKG, echo -[facility] Have you ever had a sleep study? [] [x] Do you have a device? If yes what type? (Pacemaker, Defibrillator, Implanted Loop Recorder) [] [x] If yes, where and when was device put in? Quality Control Specialist? ([employer], [employer], [employer]) Appointment Date: 05/28/23 Provider: Gregory Location: [facility] [x] Confirm appt date, time, provider and location. [x] Advise pt to arrive 15- 20 min early. [x] Advise patient to bring medications/list, photo ID and insurance card [x] Advise of New PatientPacket being mailed to them. RION DEVELOPER documented in this encounter Plan of Treatment Not on file documented as of this encounter Visit Diagnoses Not on filedocumented in this encounter Care Teams Enrollment Eligibility Representative Relationship Specialty Start Date End Date Unknown, Notinfile PCP - General 05/14/23 05/31/23 documented as of this encounter
--- OUTSIDE RECORDS SUMMARY | 2024-03-19 20:54 | XMS_ITS | Encounter Summary ---
Author Organization [facility] Address [address] [place] [address] Care Team Providers Care Plastic Boat Patcher Name Role Phone Unavailable Primary Care Provider Unavailabl e Encounter Details Date Type Department Care Team (Late st Contact Info) Description 04/04/2023 Ancillary Procedure [facility] Outside Films Social History Tobacco Use Types Packs/Day Years Used Date Smoking Tobacco: Never Assessed Comments Unknown Sex and Gender Information Value Date Recorded Sex Assigned at Not on file Legal Sex Female 10:05 AM PLASTIC OUTFITTER Gender Identity Not on file Sexual Orientation Not on file documented as of this encounter Plan of Treatment Not on file documented as of this encounter Procedures Procedure Name Priority Date/Time Associated Diagnosis Comments MRI TRANSFER OF OUTSIDE FILMS Routine 04/04/2023 12:00 AM PLASTIC OUTFITTER documented in this encounter Results * MRI Outside Reference (04/04/2023 12:00 AM PLASTIC OUTFITTER) Narrative [facility] - 05/23/2023 10:19 AM CDT This order has been auto-finalized and does not contain a result. us Not In File Miscellaneous IMG MRI PROCEDURES Fin al Result [facility] documented in this encounter Visit Diagnoses Not on filedocumented in this encounter
--- OUTSIDE RECORDS SUMMARY | 2024-03-19 20:54 | XMS_ITS | Encounter Summary ---
Author Organization [facility] Healthcare Address [address] [place] [address] Care Team Providers Care Airline Manager Name Role Phone Unknown, Notinfile Primary Care Provider Unavail able Reason for Visit * Reason Onset Date Comments Referral 05/15/2023 Encounter Details Date Type Department Care Team (Late st Contact Info) Description 05/15/2023 Telephone [facility] Medical Group Orthopedics and Sports Medicine [address] [phone] Unknown, Notinfile Referral Social History Tobacco Use Types Packs/Day Years Used Date Smoking Tobacco: Never Assessed Personal Safety Answer Date Recorded Getting School Help Needed Not on file 05/13 Comments Unknown Sex and Gender Information Value Date Recorded Sex Assigned at Not on file 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 Uploaded to [employer]. Placed in [employer] folder * Telephone Encounter - Lashell Nelson - 05/23/2023 1:22 PM CDT Scheduled * Telephone Encounter - Ayanna Alamo ATC - 05/23/2023 10:21 AM CDT Report imported from Care Everywhere. IMPRESSION: 1. IRREGULAR APPEARANCE SUGGESTING SUBTLE CHRONIC SUPERIOR LATERAL LEFT LABRAL TEAR. NO OTHER SIGNIFICANT ABNORMALITY. * Telephone Encounter - Ayanna Alamo ATC - 05/23/2023 10:20 AM CDT Disc uploaded. * Telephone Encounter - Ayanna Alamo ATC - 05/23/2023 9:11 AM CDT I called and asked the pt to fax the report to the office for review. Fax # provided. Understandingwith POC was met and call ended. * Telephone Encounter - Ayanna Alamo ATC - 05/23/2023 9:08 AM CDT My sectra is not allowing me to upload the disc currently. I will try again later this morning. * Telephone Encounter - Lashell Nelson - 05/22/2023 9:10 AM CDT Disc dropped off in [facility]. Placed in Ortho folder. * Telephone Encounter - Shruti Mccabe - 05/15/2023 9:37 AM CST Patient needs appt for a torn labrum and joint effusion. Will bring mri report and disk to [facility] office to upload, Once uploaded send to Dr. Abad for review Callback # [phone] PLATE CUTTER * Telephone Encounter - Kathe Rosales - 05/15/2023 8:27 AM CST Patient referral line left voicemail on 05/13 at 10:14 am stating patient needed to make appt for hippain. I called her at 8:25 today but had to leave message. PLATE CUTTER documented in this encounter Plan of Treatment Not on file documented as of this encounter Visit Diagnoses Not on filedocumented in this encounter Care Teams Airline Manager Relationship Specialty Start Date End Date Unknown, Notinfile PCP - General 05/14/23 05/31/23 documented as of this encounter
--- OUTSIDE RECORDS SUMMARY | 2024-03-19 20:54 | XMS_ITS | Encounter Summary ---
Author Organization [facility] Healthcare Address [address] [place] [address] Care Team Providers Care Wine And Spirits Clerk Name Role Phone Unknown, Notinfile Primary Care Provider Unavail able Encounter Details Date Type Department Care Team (Late st Contact Info) Description 05/29/2023 Telephone [facility] Medical Group Sports Medicine and Primary Care at [address] [place] [phone] Cheli Benedict MD [address] [place] [address] [address] [place], [place] [id number] Social History Tobacco Use Types Packs/Day Years Used Date Smoking Tobacco: Never Smokeless Tobacco: Never Personal Safety Answer Date Recorded Getting School Help Needed Not on file 05/13 Comments Unknown Sex and Gender Information Value Date Recorded Sex Assigned at Not on file 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
--- OUTSIDE RECORDS SUMMARY | 2024-03-19 20:54 | XMS_ITS | Encounter Summary ---
Author Organization [facility] Address [address] [place] [address] Phone Care Team Providers Care Technology Coach Name Role Phone Unknown, Notinfile Primary Care Provider Unavail able Reason for Visit * Reason Onset Date Comments Scheduling Testing/Treatment 05/28/2023 BLE Venous Doppler Encounter Details Date Type Department Care Team (Late st Contact Info) Description 05/28/2023 Telephone [facility] Cardiology [address] [facility] [address] [place] [address] Tamir Jenkins MD [address] [facility] [address] [place] [address] Scheduling Testing/Treatment (BLE Venous Doppler) Social History Tobacco Use Types Packs/Day Years Used Date Smoking Tobacco: Never Smokeless Tobacco: Never Personal Safety Answer Date Recorded Getting School Help Needed Not on file 05/13 Comments Unknown Sex and Gender Information Value Date Recorded Sex Assigned at Not on file 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. They are requesting to have pt's BLE venous doppler, that is ordered, to be done on the same day as well at [facility]. Orders are in Epic. Can you call and help get pt's test scheduled please? If it cannot be done on the same day on 07/09/23, they need a Sunday or Sunday. documented in this encounter Plan of Treatment Not on file documented as of this encounter Visit Diagnoses Not on filedocumented in this encounter Care Teams Technology Coach Relationship Specialty Start Date End Date Unknown, Notinfile PCP - General 05/14/23 05/31/23 documented as of this encounter
--- OUTSIDE RECORDS SUMMARY | 2024-03-19 20:54 | XMS_ITS | Encounter Summary ---
Author Organization [facility] Address [address] [place] [address] Phone Care Team Providers Care Pulmonary Care Nurse Name Role Phone Unknown, Notinfile Primary Care Provider Unavail able Jaden Thakur DO Primary Care Provide r Encounter Details Date Type Department Care Team (Latest Contact Info) Description 10/19/2022 Orders Only [facility] Shauna Patterson, AMBROSE [address] [facility] [address] [place], [place] [phone] Social History Tobacco Use Types Packs/Day Years Used Date Smoking Tobacco: Never Assessed Comments Unknown Sex and Gender Information Value Date Recorded Sex Assigned at Not on file 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 Gender Identity Not on file Sexual Orientation Not on file documented as of this encounter Plan of Treatment Not on file documented as of this encounter Procedures Procedure Name Priority Date/Time Associated Diagnosis Comments SCAN - LABS 10/19/2022 CARDIOLOGY DOCUMENT SCAN 10/19/2022 documented in this encounter Results * SCAN - LABS (10/19/2022) us Shauna Patterson RN Edite d Result - Final * Cardiology Document Scan (10/19/2022) Anatomical Region Laterality Modality Other us Shauna Denise Glenwood RN [facility] P ROCEDURES Final Result documented in this encounter Visit Diagnoses Not on filedocumented in this encounter Care Teams Pulmonary Care Nurse Relationship Specialty Start Date End Date Unknown, Notinfile PCP - General 05/14/23 05/31/23 Jaden Thakur DO [address] [place] [id number] PCP - General Family Medicine 06/01/23 documented as of this encounter
--- OUTSIDE RECORDS SUMMARY | 2024-03-19 20:54 | XMS_ITS | Encounter Summary ---
Author Organization [facility] Address [address] [place] [address] Phone Care Team Providers Care Php Wordpress Developer Name Role Phone Unknown, Notinfshell Primary Care Provider Unavail able Jaden Thakur DO Primary Care Provide r Encounter Details Date Type Department Care Team (Latest Contact Info) Description 10/23/2022 Orders Only [facility] Shauna Patterson RN [address] [facility] [address] [place], [place] [id number] Social History Tobacco Use Types Packs/Day Years Used Date Smoking Tobacco: Never Assessed Comments Unknown Sex and Gender Information Value Date Recorded Sex Assigned at Not on file 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 Gender Identity Not on file Sexual Orientation Not on file documented as of this encounter Plan of Treatment Not on file documented as of this encounter Procedures Procedure Name Priority Date/Time Associated Diagnosis Comments CARDIOLOGY DOCUMENT SCAN 10/23/2022 documented in this encounter Results * Cardiology Document Scan (10/23/2022) Anatomical Region Laterality Modality Other Shauna Patterson RN [facility] P ROCEDURES Final Result documented in this encounter Visit Diagnoses Not on filedocumented in this encounter Care Teams Php Wordpress Developer Relationship Specialty Start Date End Date Unknown, Jossie PCP - General 05/14/23 05/31/23 Jaden Thakur DO [address] [place] [id number] PCP - General Family Medicine 06/01/23 documented as of this encounter
--- OUTSIDE RECORDS SUMMARY | 2024-03-19 20:55 | XMS_ITS | Clinical Summary ---
Author Organization [facility] Address [address] [place] [address] Care Team Providers Care Bolt Man Name Role Phone Obed Barry MD, Valdez Valenzuela Primary Care Provide r Allergies Active Allergy Reactions Criticality Noted Date Comments Latex 11/17/2022 Medications acetaminophen (TYLENOL) 500 MG tablet Administer 1 tablet (500 mg total) per tube every 6 (six) hours as needed for mild pain or moderate pain (Fever). 0 3 Active baclofen (LIORESAL) 5 MG tablet tablet Take 1 tablet (5 mg total) by mouth nightly. 30 tablet 3 Active bethanechol (URECHOLINE) 25 MG tablet Take 1 tablet (25 mg total) by mouth 3 (three) times a day. 90 tablet 3 Active cholecalciferol (VITAMIN D3) 25 MCG (1000 UT) tablet Administer 2 tablets (2,000 Units total) per tube in the morning. 60 tablet 3 Active cyclobenzaprine (FLEXERIL) 5 MG tablet Take 1 tablet (5 mg total) by mouth 3 (three) times a day. 90 tablet 3 Active gabapentin (NEURONTIN) 300 MG capsule Take 1 capsule (300 mg total) by mouth 3 (three) times a day. 90 capsule 3 Active hydrOXYzine (ATARAX) 25 MG tablet Take 1 tablet (25 mg total) by mouth every 6 (six) hours as needed for anxiety. 30 tablet 3 Active loratadine (CLARITIN) 10 MG tablet 1 tablet (10 mg total) by Enteral route in the morning. 30 tablet 3 Active metoprolol tartrate (LOPRESSOR) 25 MG tablet 1 tablet (25 mg total) by Enteral route in the morning and 1 tablet (25 mg total) before bedtime. 60 tablet 3 Active muscle rub (ICY HOT) 10-15 % cream cream Apply 1 application topically 3 (three) times a day. 85 g 3 Active pantoprazole (PROTONIX) 40 MG EC/DR tablet Take 1 tablet (40 mg total) by mouth Daily at 6am. 30 tablet 3 Active senna-docusate (SENOKOT-S) 8.6-50 MG Take 2 tablets by mouth daily as needed for constipation (offer third line). 0 3 Active polyethylene glycol (MIRALAX) 17 g packet Administer 17 g per tube 2 (two) times a day as needed (offer first line). 10 each 3 Active tamsulosin (FLOMAX) 0.4 MG capsule 1 capsule (0.4 mg total) by Enteral route After Breakfast. 30 capsule 3 Active verapamil (CALAN) 40 MG tablet Take 1 tablet (40 mg total) by mouth every 8 (eight) hours. 90 tablet 3 Active warfarin 1 MG tablet Take 3.5 tablets (3.5 mg total) by mouth in the evening. Take as directed per After Visit Summary.. 20 tablet 3 Active oxyCODONE (ROXICODONE) 5 MG immediate release tabletIndicatio ns:Acute Pain 1 tablet (5 mg total) by Enteral route every 8 (eight) hours as needed for severe pain Indications: Acute Pain. Max Daily Amount: 15 mg 21 tablet 3 Active Active Problems Problem Noted Date Diagnosed Date Trochanteric bursitis of left hip 12/08/2022 Cerebrovascular accident 11/17/2022 Hypertension 10/19/2022 Immunizations Name Administration Dates Next Due Influenza, Unspecified 11/17/2022(Deferr ed: Patient not in facility during flu season - flu vaccines not available at this time) Pfizer SARS-CoV-2 Vaccination 11/17/2022 (Deferred: Not eligible - Medical contraindication - patient vaccinated) Social History Tobacco Use Types Packs/Day Years Used Date Smoking Tobacco: Former Cigarettes 0.5 8 Smokeless Tobacco: Never Tobacco Cessation:Counseling Given: Not Answered Alcohol Use Standard Drinks/Week Comments Yes 0 (1 standard drink = 0.6 oz pur e alcohol) rarely Comments Unknown Sex and Gender Information Value Date Recorded Sex Assigned at Not on file Legal Sex Female 11:44 PM EDT Gender Identity Not on file Sexual Orientation Not on file Last Filed Vital Signs Vital Sign Reading Time Taken Comments Blood Pressure 107/73 12/14/2022 7:07 AM CDT Pulse 63 12/14/2022 7:07 AM CDT Temperature 36.4 ??C (97.6 ??F) 12/14/2022 7:07 AM CD T Respiratory Rate 18 12/14/2022 7:07 AM CDT Oxygen Saturation 95% 12/14/2022 7:07 AM CDT Inhaled Oxygen Concentration - - Weight 87.1 kg (192 lb) 12/10/2022 5:54 AM CDT Height 162.6 cm (5' 4 ) 12/08/2022 4:00 AM CDT Body Mass Index 32.96 12/08/2022 4:00 AM CDT Plan of Treatment Health Maintenance Due Date Last Done Comments Annual Visit Topic 11/02/1983 MMR Vaccines (1 of 1 - Stand lyssa series) 11/02/1983 Varicella Vaccines (1 of 2 - 13+ 2-dose series) 11/02/1995 Hepatitis B Vaccines (1 of 3 - 19+ 3-dose series) 2001 Pap Smear 11/02/2003 Cervical Cancer Screening 2012 HPV/Cotest 2012 DTaP/Tdap/Td Vaccines (2 - T d or Tdap) 01/18/2016 12/21/2015 HIB Vaccines Aged Out No longer eligi ble based on patient's age to complete this topic HPV Vaccines Aged Out No longer eligi ble based on patient's age to complete this topic Hepatitis A Vaccines Aged Out No long er eligible based on patient's age to complete this topic IPV Vaccines Aged Out No longer eligi ble based on patient's age to complete this topic Meningococcal Vaccine Aged Out No shira hung eligible based on patient's age to complete this topic Pneumococcal Vaccine: Pediat rics (0 to 5 years) and At-Risk Patients (6 to 64 Years) Aged Out No longer eligi ble based on patient's age to complete this topic Advance Directives * Full Resuscitation (Latest Code Status on File) Date Activated Date Inactivated Comments 11/17/2022 6:12 PM 12/14/2022 12:04 PM Care Teams Bolt Man Relationship Specialty Start Date End Date Valdez Clay Jr., MD [address] [place] [address] PCP - General Vascular Surgery 11/18/22
--- OUTSIDE RECORDS SUMMARY | 2024-03-19 20:56 | XMS_ITS | Encounter Summary ---
Author Organization [facility] Address [address] [place] [id number] Care Team Providers Care Oracle Applications Analyst Name Role Phone Obed Barry MD, Valdez Valenzuela Primary Care Provide r Reason for Referral * (Routine) - Closed Specialty Diagnoses / Procedures Referred By Jimena t Referred To Contact Diagnoses Cerebrovascular accident Yamileth Frias MD [address] [place] [id number] Phone: tel: fax: Referral ID Status Reason Start Date Expiration Date Visits Re quested Visits Authorized [id number] Closed 12/11/2022 06/09/2023 1 1 Question Answer DME Equipment Commodes Commode type: Drop Arm Commode, Heavy Duty Commode (301 - 450lbs) Duration of need: 99 months * (Routine) - Closed Specialty Diagnoses / Procedures Referred By Jimena muller Referred To Contact Diagnoses Cerebrovascular accident Yamileth Frias MD [address] [place] [address] Phone: tel: fax: Referral ID Status Reason Start Date Expiration Date Visits Re quested Visits Authorized [id number] Closed 12/11/2022 06/09/2023 1 1 Question Answer DME Equipment Manual Lift Patient Lift: Izc-my-Pcgbv Lift Duration of need: 99 months * (Routine) - Closed Specialty Diagnoses / Procedures Referred By Jimena t Referred To Contact Diagnoses Cerebrovascular accident Yamileth Frias MD [address] [place] [id number] Phone: tel: fax: Referral ID Status Reason Start Date Expiration Date V isits Requested Visits Authorized [id number] Closed Specialty Services Required 11/30/2022 05/29/2023 1 1 Question Answer Reason for Consult? 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 * (Routine) - Closed Specialty Diagnoses / Procedures Referred By Jimena t Referred To Contact Diagnoses Cerebrovascular accident Yamileth Frias MD [address] [place] [address] Phone: tel: fax: Referral ID Status Reason Start Date Expiration Date Visits Re quested Visits Authorized [id number] Closed 11/28/2022 05/27/2023 1 1 Question Answer DME Equipment Transfer Board Transfer Board Type: 24 inch - Without Cutout Duration of need: 99 months * (Routine) - Closed Specialty Diagnoses / Procedures Referred By Conttorin t Referred To Contact Diagnoses Cerebrovascular accident Yamileth Frias MD [address] [place] [address] Phone: tel: fax: Referral ID Status Reason Start Date Expiration Date Visits Re quested Visits Authorized [id number] Closed 11/28/2022 05/27/2023 1 1 Question Answer DME Equipment Manual Lift Patient Lift: Sling Lift Duration of need: 99 months * (Routine) - Closed Specialty Diagnoses / Procedures Referred By Contac t Referred To Contact Diagnoses Cerebrovascular accident Yamileth Frias MD [address] [place] [address] Phone: tel: fax: Referral ID Status Reason Start Date Expiration Date Visits Re quested Visits Authorized [id number] Closed 11/28/2022 05/27/2023 1 1 Question Answer DME Equipment Commodes Commode type: Drop Arm Commode Duration of need: 99 months * (Routine) - Closed Specialty Diagnoses / Procedures Referred By Jimena t Referred To Contact Diagnoses Cerebrovascular accident Yamileth Frias MD [address] [place] [phone] Phone: tel: fax: Referral ID Status Reason Start Date Expiration Date Visits Re quested Visits Authorized [id number] Closed 11/28/2022 05/27/2023 1 1 Question Answer DME Equipment Specialty Mattress Specialty Mattress Low Air Loss Duration of need: 99 months * (Routine) - Closed Specialty Diagnoses / Procedures Referred By Jimena muller Referred To Contact Diagnoses Cerebrovascular accident Yamileth Frias MD [address] [place] [phone] Phone: tel: fax: Referral ID Status Reason Start Date Expiration Date Visits Re quested Visits Authorized [id number] Closed 11/28/2022 05/27/2023 1 1 Question Answer DME Equipment Hospital Bed Hospital Bed Semi Electric Hospital Bed Duration of need: 99 months * Home Health (Routine) - Closed Specialty Diagnoses / Procedures Referred By Jimena muller Referred To Contact Home Health Services Diagnoses Cerebrovascular accident Yamileth Frias MD [address] [place] [phone] Phone: tel: fax: Referral ID Status Reason Start Date Expiration Date V isits Requested Visits Authorized [id number] Closed Specialty Services Required 11/24/2022 05/23/2023 1 1 Question Answer Reason for Consult? CVA Anticipated Discharge Date 12/07/2022 Therapy/Assistance in Home PT - eval and treat, OT - eval and treat, Jail, Enteral Nutrition Route: PEG / G-Tube Tube Feeding Formula: Jevity 1.5 Formula Substitution Permitted: Yes Tube feeding contin 50 Free water restriction: Other (Comment Required) - NPO water flush 150 flush type Water flush frequency Every 4 hours Equipment: Enteral Pump, Enteral Pump Bags, IV Pole, Bolus Syringes Diabetes Care Clinical Educator Next PT/INR Due 12/08/2022 Physician to Call for Home Care Follow Up Romy Thakur DO Encounter Details Date Type Department Care Team (Latest Contact Info) Description 11/17/2022 4:00 PM CDT - 12/14/2022 8:57 AM CDT Hospital Encounter [address] [address] Yamileth Frias MD [address] [place] [id number] Cerebrovascular accident (Primary Dx) Discharge Disposition: Discharged Home/Self Care Social History Tobacco Use Types Packs/Day [...] Mass Index 32.96 12/08/2022 4:00 AM CDT documented in this encounter Discharge Summaries * Nghia Pryor MD - 12/14/2022 8:57 AM CDT Hospitalist Discharge Summary REASON FOR ADMISSION: Patient Active Problem List Diagnosis Cerebrovascular accident Hypertension Trochanteric bursitis of left hip ADMISSION DATE: 11/17/2022 DISCHARGE DATE: 12/14/2022 DISCHARGE DESTINATION; Own Home HPI: The patient is a 42 y.o. y/o female with history of HTN, GERD, presented tO ED with new left sided weakness and slurred speech Diagnosed with acute CVA s/p TNK and m1 occlusion S/P MT . c/b R iliac and common femoral artery occlusion s/p thrombectomy. Developed Fever: consulted ID, broaden abx, Cxs. - MRI brain w/wo done (11/10): cortical enhancement along the right frontal parietal and temporal regions 2/2 infarct progression but can't rule out cerebritis or infections.however LP neg. Also had glenis PEG fluid collection: Improved on abx - Urology replaced puentes (11/09-) Extubated, now on RA currently here for therapy Todays chief Complains INR 1.2 HGB 10.6 C/o severe headache with therapy and chnaging positions, became diaphoretic Vitals ok Check CT head Inc pain med D/W mother and in the room History also obtained from review of patients previous acute hospitalization chart, current rehabilitation chart , discussion with family members in the room and discussion with nursing staff taking care of the patient. HOSPITAL COURSE: The patient was admitted to [facility] to undergo intensive inpatient rehabilitation forfunctional deficits and debility secondary to the above noted diagnosis and hospital course. They participated fairly well with all disciplines of therapy and made progress as noted below in the score documentation. The following medical issues were addressed during this stay: 11/19 The patient is being seen for follow-up of Cerebrovascular accident. BP, BS , HR, labs, strength. .Chief Complaint CT head ok Headache much better Got upto chair without helmet =did ok Working on better helmet Consider spinal headache if recurs- d/w dr Villagran strength improving, able to do therapy ok. No chest pain, no SOB, no dizziness, no palpitations, no new neurologic symptoms. No cough, No nausea or vomiting, No abdominal pain. History also obtained from Nurse and staff about how the patient did overnight and during the day strength improving, able to do therapy ok. 11/20 Patient seen an examined Doing alright No new issues to report Vitals reviewed 11/21 Patient seen and examined earlier No new issues to report Vitals reviewed Resting comfortably 11/22 Patient seen and examined Doing alright at this time Resting comfortably Vitals reviewed 11/23 The patient was seen in the room this afternoon. The patient currently does not report any chest pain, shortness present nausea or vomiting No reported issues from the floor nurse. The most recent labs and vital signs were reviewed. 11/24: Patient seen and examined this morning. Patient complaining of bilateral hip pain. Have placed order for Flexeril and lidocaine patch. No acute events reported overnight. Blood work and vital signs remained stable. Continue current medical management. 11/25: Patient seen and examined this morning. Patient continues to complain of bilateral hip pain. Continue lidocaine patches. Have scheduled Flexeril 5 mg t.i.d.. Continue current medical management. 11/26: Patient seen and examined this morning. Patient continues to complain of hip pain. Follow up left hip x-ray. Follow up with PM&R for further recommendations. Continue Lovenox. Have discussed Coumadin dosing with pharmacy. Goal to have INR from 2-3. No acute events reported overnight. Continue current medical management. 11/27:Patient seen and examined this morning. Vitals and labs reviewed. Resting comfortably. No acute events overnight. Continue current medical management. 11/30 Patient seen and examined Doing ok. No new issues to report 12/01 Patient seen and examined earlier this afternoon. Things are going well. No new issues to report. 12/02:Patient seen and examined this morning. Vitals and labs reviewed. Resting comfortably. No acute events overnight. Continue current medical management. 12/03: Patient seen and examined this morning. Patient complaining of sharp shooting pain around herleft hip area. Have started gabapentin 300 mg t.i.d.. Vital signs and blood work reviewed. INR at goal. Continue current medical management. 12/04 Patient seen and examined. Doing ok at this time. No new issues to report. Vitals reviewed. 12/05 Patient seen and examined earlier today. Doing alright. No new issues to report. Vitals reviewed. Having pain in hip. Discussed with dr. Frias 12/06 Patient seen and examined. Doing alright currently. No new issues to report. Vitals reviewed. 12/07 Patient seen and examined today. Doing alright. No new issues to report. Vitals reviewed. 12/08 Patient seen and examined. Doing alright. No new issues. 12/09 Patient seen and examined today. Doing well. Says she had steroid injection yesterday. Feels about the same. 12/10 Patient seen and evaluated on daily rounds. No overnight events reported by staff. patient slept ok last night. Appetite and PO ok.Patent participating with therapy and cares. Denies any complaints VS ok C/o constipation Lactulose 12/11 Patient seen and examined. Doing alright No new issues to report. Vitals reviewed 12/12 Patient seen and examined Doing alright No new issues to report Vitals reviewed DISCHARGE DIAGNOSES: @ADMDXS@ Patient Active Problem List Diagnosis Cerebrovascular accident Hypertension Trochanteric bursitis of left hip Assessment and plan for medical issues that were managed here are listed below: Acute R MCA CVA Left hemiplegia /p TNK and MT and TICI2b revascularization on 10/19. Developed MCA syndrome s/p hemicrani. Therapy Worsening headache- check CT head Poor tolerance to helmet vs spinal headache cerebral edema and midline shift s/p hemicraniectomy 10/20/22 Incision care R iliac and common femoral artery occlusion 10/30: R common femoral thrombectomy and patch angioplasty Warfarin Fever Fever: consulted ID, minen abx, Cxs. - MRI brain w/wo done (11/10): cortical enhancement along the right frontal parietal and temporal regions 2/2 infarct progression but can't rule out cerebritis or infections.LP not concerning, however. -- glenis PEG fluid collection: Improved on abx - Urology replaced puentes (11/09-) TTE showed mobile aortic valve vegetation. IV abxs HTN Continue meds Migraine without aura Pian control GERD PPI Oral contraceptive use DVT Prophylaxis Obesity BMI 36 Nutrition consult Abn LFT Check hep screen Watch with statin D Pain management Today's pain score FEN. Nutrition consult for evaluation of nutritional status and the best diet. And for BMI evaluation and education regarding maintaining a healthy BMI Bladder management Voiding ok Bowel management . Titrate bowel medications for constipation/diarrhea. Skin. Nursing to address skin care throughout stay. Turn every 2 hrs Sleep. Monitor sleep-wake cycle. High Fall risk- Fall precautions GI Prophylaxis: DVT Prophylaxis: Full Resuscitation MEDICATIONS ON DISCHARGE: Medication List START taking these medications Prescription Last Dose and Time given acetaminophen 500 MG tablet Commonly known as: TYLENOL Instructions: Administer 1 tablet (500 mg total) per tube every 6 (six) hours as needed for mild pain or moderate pain (Fever). Refill: 0 Baclofen 5 MG tablet tablet Commonly known as: LIORESAL Instructions: Take 1 tablet (5 mg total) by mouth nightly. Dispense: 30 tablet Refill: 0 bethanechol 25 MG tablet Commonly known as: URECHOLINE Instructions: Take 1 tablet (25 mg total) by mouth 3 (three) times a day. Dispense: 90 tablet Refill: 0 cholecalciferol 25 MCG (1000 UT) tablet Commonly known as: VITAMIN D3 Instructions: Administer 2 tablets (2,000 Units total) per tube in the morning. Dispense: 60 tablet Refill: 0 cyclobenzaprine 5 MG tablet Commonly known as: FLEXERIL Instructions: Take 1 tablet (5 mg total) by mouth 3 (three) times a day. Dispense: 90 tablet Refill: 0 gabapentin 300 MG capsule Commonly known as: NEURONTIN Instructions: Take 1 capsule (300 mg total) by mouth 3 (three) times a day. Dispense: 90 capsule Refill: 0 hydrOXYzine 25 MG tablet Commonly known as: ATARAX Instructions: Take 1 tablet (25 mg total) by mouth every 6 (six) hours as needed for anxiety. Dispense: 30 tablet Refill: 0 loratadine 10 MG tablet Commonly known as: CLARITIN Instructions: 1 tablet (10 mg total) by Enteral route in the morning. Dispense: 30 tablet Refill: 0 metoprolol tartrate 25 MG tablet Commonly known as: LOPRESSOR Instructions: 1 tablet (25 mg total) by Enteral route in the morning and 1 tablet (25 mg total) before bedtime. Dispense: 60 tablet Refill: 0 muscle rub 10-15 % cream cream Instructions: Apply 1 application topically 3 (three) times a day. Dispense: 85 g Refill: 0 oxyCODONE 5 MG immediate release tablet Commonly known as: ROXICODONE Instructions: 1 tablet (5 mg total) by Enteral route every 8 (eight) hours as needed for severe pain Indications: Acute Pain. Max Daily Amount: 15 mg Dispense: 21 tablet Refill: 0 pantoprazole 40 MG EC/DR tablet Commonly known as: PROTONIX Instructions: Take 1 tablet (40 mg total) by mouth Daily at 6am. Dispense: 30 tablet Refill: 0 polyethylene glycol 17 g packet Commonly known as: MIRALAX Instructions: Administer 17 g per tube 2 (two) times a day as needed (offer first line). Dispense: 10 each Refill: 0 senna-docusate 8.6-50 MG Commonly known as: SENOKOT-S Instructions: Take 2 tablets by mouth daily as needed for constipation (offer third line). Refill: 0 tamsulosin 0.4 MG capsule Commonly known as: FLOMAX Instructions: 1 capsule (0.4 mg total) by Enteral route After Breakfast. Dispense: 30 capsule Refill: 0 verapamil 40 MG tablet Commonly known as: CALAN Instructions: Take 1 tablet (40 mg total) by mouth every 8 (eight) hours. Dispense: 90 tablet Refill: 0 warfarin 1 MG tablet Instructions: Take 3.5 tablets (3.5 mg total) by mouth in the evening. Take as directed per After Visit Summary.. Dispense: 20 tablet Refill: 0 Comments: Warfarin dose needs to be monitored by outpatient physician, was on 3.5 mg most recently here in the hospital STOP taking these medications amitriptyline 50 MG tablet Commonly known as: ELAVIL cetirizine 10 MG tablet Commonly known as: ZyrTEC omeprazole 20 MG capsule Commonly known as: PriLOSEC ASK your doctor about these medications Prescription Last Dose and Time given cefdinir 300 MG capsule Commonly known as: OMNICEF Ask about: Should I take this medication? Instructions: Take 1 capsule (300 mg total) by mouth in the morning and 1 capsule (300 mg total) before bedtime. Do all this for 1 dose. Indications: Simple Infection of the Urinary Tract. Dispense: 1 capsule Refill: 0 Comments: Completes abx today Medication List START taking these medications Prescription Last Dose and Time given acetaminophen 500 MG tablet Commonly known as: TYLENOL Instructions: Administer 1 tablet (500 mg total) per tube every 6 (six) hours as needed for mild pain or moderate pain (Fever). Refill: 0 Baclofen 5 MG tablet tablet Commonly known as: LIORESAL Instructions: Take 1 tablet (5 mg total) by mouth nightly. Dispense: 30 tablet Refill: 0 bethanechol 25 MG tablet Commonly known as: URECHOLINE Instructions: Take 1 tablet (25 mg total) by mouth 3 (three) times a day. Dispense: 90 tablet Refill: 0 cholecalciferol 25 MCG (1000 UT) tablet Commonly known as: VITAMIN D3 Instructions: Administer 2 tablets (2,000 Units total) per tube in the morning. Dispense: 60 tablet Refill: 0 cyclobenzaprine 5 MG tablet Commonly known as: FLEXERIL Instructions: Take 1 tablet (5 mg total) by mouth 3 (three) times a day. Dispense: 90 tablet Refill: 0 gabapentin 300 MG capsule Commonly known as: NEURONTIN Instructions: Take 1 capsule (300 mg total) by mouth 3 (three) times a day. Dispense: 90 capsule Refill: 0 hydrOXYzine 25 MG tablet Commonly known as: ATARAX Instructions: Take 1 tablet (25 mg total) by mouth every 6 (six) hours as needed for anxiety. Dispense: 30 tablet Refill: 0 loratadine 10 MG tablet Commonly known as: CLARITIN Instructions: 1 tablet (10 mg total) by Enteral route in the morning. Dispense: 30 tablet Refill: 0 metoprolol tartrate 25 MG tablet Commonly known as: LOPRESSOR Instructions: 1 tablet (25 mg total) by Enteral route in the morning and 1 tablet (25 mg total) before bedtime. Dispense: 60 tablet Refill: 0 muscle rub 10-15 % cream cream Instructions: Apply 1 application topically 3 (three) times a day. Dispense: 85 g Refill: 0 oxyCODONE 5 MG immediate release tablet Commonly known as: ROXICODONE Instructions: 1 tablet (5 mg total) by Enteral route every 8 (eight) hours as needed for severe pain Indications: Acute Pain. Max Daily Amount: 15 mg Dispense: 21 tablet Refill: 0 pantoprazole 40 MG EC/DR tablet Commonly known as: PROTONIX Instructions: Take 1 tablet (40 mg total) by mouth Daily at 6am. Dispense: 30 tablet Refill: 0 polyethylene glycol 17 g packet Commonly known as: MIRALAX Instructions: Administer 17 g per tube 2 (two) times a day as needed (offer first line). Dispense: 10 each Refill: 0 senna-docusate 8.6-50 MG Commonly known as: SENOKOT-S Instructions: Take 2 tablets by mouth daily as needed for constipation (offer third line). Refill: 0 tamsulosin 0.4 MG capsule Commonly known as: FLOMAX Instructions: 1 capsule (0.4 mg total) by Enteral route After Breakfast. Dispense: 30 capsule Refill: 0 verapamil 40 MG tablet Commonly known as: CALAN Instructions: Take 1 tablet (40 mg total) by mouth every 8 (eight) hours. Dispense: 90 tablet Refill: 0 warfarin 1 MG tablet Instructions: Take 3.5 tablets (3.5 mg total) by mouth in the evening. Take as directed per After Visit Summary.. Dispense: 20 tablet Refill: 0 Comments: Warfarin dose needs to be monitored by outpatient physician, was on 3.5 mg most recently here in the hospital STOP taking these medications amitriptyline 50 MG tablet Commonly known as: ELAVIL cetirizine 10 MG tablet Commonly known as: ZyrTEC omeprazole 20 MG capsule Commonly known as: PriLOSEC ASK your doctor about these medications Prescription Last Dose and Time given cefdinir 300 MG capsule Commonly known as: OMNICEF Ask about: Should I take this medication? Instructions: Take 1 capsule (300 mg total) by mouth in the morning and 1 capsule (300 mg total) before bedtime. Do all this for 1 dose. Indications: Simple Infection of the Urinary Tract. Dispense: 1 capsule Refill: 0 Comments: Completes abx today DISCHARGE ORDERS .avs .avs VITAL SIGNS (Retired) Vitals (last 3 days) before discharge Date/Time Temp Pulse Resp BP SpO2 Weight 12/14/22 0707 97.6 ??F (36.4 ??C) 63 18 107/73 95 % -- 12/13/22 1935 97.5 ??F (36.4 ??C) 74 18 105/67 96 % -- 12/13/22 0731 97.8 ??F (36.6 ??C) 71 17 114/79 95 % -- 12/12/22 1920 98 ??F (36.7 ??C) 80 17 108/57 97 % -- 12/12/22 0903 -- 63 -- 112/71 -- -- 12/12/22 0709 97.9 ??F (36.6 ??C) 63 18 108/70 94 % -- 12/11/22 192 97.7 ??F (36.5 ??C) 63 18 116/78 97 % -- 12/11/22 1531 -- -- -- 118/74 -- -- 12/11/22 0720 98.1 ??F (36.7 ??C) 71 16 106/68 95 % -- 12/11/22 0620 -- 74 -- 126/77 94 % -- EXAM ON DAY OF DISCHARGE General: Patient in no acute distress, awake, alert, able to follow commands and makes needs known Head: Atrauamtic/Normocephalic Ears: Hearing grossly normal Cardiac: regular rate rhythm Respiratory: Clear to auscultation anteriorly, moderate respiratory effor Abdomen: Soft, Non tender non distended, bowel sounds audible Extremities: No signs of cyanosis, clubbing nor edema Skin: No rashes no ulcers on visible skin Neuro: alert, oriented Psych: mood and affect appropriate DIET: As tolerated, per Clinical Educator recommendations ACTIVITY:As tolerated per therapist and cost control supervisor recommendations Physical Activity: Not on file CONDITION AT TIME OF DISCHARGE: Stable RECOMMENDED FOLLOW-UP: With PCP IN 1-2 WEEKS Discharge Destination: Own Home Primary Caregiver Post Discharge: Spouse, Parent FUNCTIONAL STATUS AT DISCHARGE Physical Therapy: Discharge Summary PT Current Functional Status: Ms. Darby's functional status as follows: PRECAUTIONS: helmet to be worn when up moving, transfers. Can remove once up and sitting stationary. BED MOBILITY: Supine to sit = max A for trunk and L hemibody; cues for sonya-compensatory technique, sequencing, L sonya-body attention Sit to supine = max A for trunk and L UE/LE; cues for sonya-technique, hooking L with R LE, sequencing, and safety Rolling L = min A to for trunk, inititaion/completion of task Rolling R = max A for L sonya-body, cues for sonya-compensatory techniques, L attention, safety TRANSFERS Transfer board = mod/max A for force production, balance, and LLE positioning/stability; L neglect noted; level surfaces only, practiced to R and L; sig improvement noted with fluency and safety going towards R Sit-stand with R sonya-aide = mod/max A for balance and L knee block, slight L lean; cues for safety, hand placement, and technique Stand-pivot without device = max A for balance and L knee block/positioning towards R, max/dep x1 toward L; cues for safety, technique, sequencing, and L attention; practiced to R and L; significantly improved sequencing and stability going towards R Car transfer = W/c to/from car simulator with use of transfer board to level seat: max of one and min of another for trunk control with management of left side in/out of car. W/c to/from pt own mini-van: trialed use of transfer board to very elevated surface or stand pivot to various sitting positions, then lift up to seat- max of one and mod of another to assist with positioning up on seat. Mechanical lift = Myra-flex stand lift for bed to/from w/c and for toileting at times (particularly with nursing staff) GAIT: up to 40' with R sonya-aide and max A x1 for balance and LLE management; 2nd person for w/c follow for safety; helmet, L sling for glenohumeral support, L francisco wrap for DF; notable initiation/trace movement of L hip flexion on swing at times; improved with cues and practice, though not consistent; assist to fully advance L swing and total assist to stabilize L knee from buckling required; pt progressed to being able to advance cane appropriately without physical assist - only required verbal cues Deviations include: sonya-paretic gait pattern, decreased wt shift R with lean L, L LE assist/stabilization as noted, L neglect, flexed posture, R head rotation Not safe to attempt 50, 150' Compliant surface: not safe to attempt Retrieval of an object from the ground: not safe to attempt STAIRS: Not safe to attempt 1, 4, 12 steps at this time. WHEELCHAIR MOBILITY Loaner manual w/c issued via [employer] - lightweight, contoured back, half lap tray, pressure relieving cushion, adjustable and removable arm/leg rests; propels 160' with mod/max A for steering, L neglect; repeated cues for safety, L awareness/visual scanning, and technique; increased time and effort required; utilizes R UE/LE to propel OUTCOME MEASURES: ABS - 15 PASS = per; prior notes 10MWT = not able to attempt at this time PROGRESS: Ms. Darby tolerated the session well. He Salo present for continued hands on training. Reviewed bed mobility, positioning. Transfers with use of transfer board and stand pivot. Car transfer to their mini van and other options. Reviewed mechanical sit to stand machine vs manual. DME: w/c, cushion through [employer]. Ordered mechanical lift from [facility]-- [facility] will be following up with the patient and [facility]. Other DME: transfer board and hospital bed ordered through [facility]. Ms. Darby has made noted progress during her rehab stay. Plan to be discharged to her home with family support and continued therapy at the [facility]. Good potential to continue to make progress. Weight Bearing Status: Full - No restrictions throughout Patient needs assistance with the following: Balance; Sitting balance; Walking and/or mobility; Positioning; Rolling; Wheelchair management; Negotiating ramps or curbs PT Ranch Helper Goals: Care Score Legend 1 Dependent 2 Substantial/maximal assistance 3 Partial/moderate assistance 4 Supervision or touching assistance 5 Setup or clean-up assistance 6 Independent 7 Patient refused 9 N/A 10 Not attempted due to environmental limitations 88 Not attempted due to medical condition or safety concern Goal on Admission Admission Status Discharge Status Car Transfer Physical Assistance Level: Total assistance Reason if not Attempted: Safety concerns Car Transfer - CARE Score: 88 Car Transfer - CARE Score: 88 (11/18/22 1006 : Roxanne Goldberg, PT) Car Transfer - CARE Score: 1 (12/13/221943 : Kellie Moran, PT) Walk 10 Feet Physical Assistance Level: Total assistance Reason if not Attempted: Safety concerns Walk 10 Feet - CARE Score: 88 Walk 10 Feet - CARE Score: 88 (11/18/22 1006 : Roxanne Goldberg, PT) Walk 10 Feet - CARE Score: 1 (12/13/221943 : Kellie Moran, PT) Walk 50 Feet with Two Turns Reason if not Attempted: Safety concerns Walk 50 Feet with Two Turns - CARE Score: 88 Walk 50 Feet with Two Turns - CARE Score: 88 ( : Roxanne Goldberg, PT) Walk 50 Feet with Two Turns - CARE Score: 88 (12/13/221943 : Kellie Moran PT) Walk 150 Feet Reason if not Attempted: Safety concerns Walk 150 Feet - CARE Score: 88 Walk 150 Feet - CARE Score: 88 (11/18/22 1006 : Roxanne Goldberg PT)Walk 150 Feet - CARE Score: 88 (12/13/221943 : Kellie Moran PT) Walking 10 Feet on Uneven Surfaces Reason if not Attempted: Safety concerns Walking 10 Feet on Uneven Surfaces - CARE Score: 88 Walking 10 Feet on Uneven Surfaces - CARE Score: 88 (11/18/22 1006 : Roxanne Goldberg PT) Walking 10 Feet on Uneven Surfaces - CARE Score: 88 (12/13/221943 : Kellie Moran PT) 1 Step (Curb) Reason if not Attempted: Safety concerns 1 Step (Curb) - CARE Score: 88 1 Step (Curb) - CARE Score: 88 (11/18/22 1006 : Roxanne Goldberg PT)1 Step (Curb) - CARE Score: 88 (12/13/221943 : Kellie Moran PT) 4 Steps Reason if not Attempted: Safety concerns 4 Steps - CARE Score: 88 4 Steps - CARE Score: 88 (11/18/22 1006 : Roxanne Goldberg PT) 4 Steps - CARE Score: 88 (12/13/221943 : Kellie Moran PT) 12 Steps Reason if not Attempted: Safety concerns 12 Steps - CARE Score: 88 12 Steps - CARE Score: 88 (11/18/22 1006 : Roxanne Goldberg PT) 12 Steps - CARE Score: 88 (12/13/221943 : Kellie Moran PT) Picking Up Object Reason if not Attempted: Safety concerns Picking Up Object - CARE Score: 88 Picking Up Object - CARE Score: 88 (11/18/22 1006 : Roxanne Goldberg PT) Picking Up Object - CARE Score: 88 (12/13/221943 : Kellie Moran PT) Wheel 50 Feet with Two Turns Physical Assistance Level: 76% or more Reason if not Attempted: Safety concerns Wheel 50 Feet with Two Turns - CARE Score: 88 Type of Wheelchair/Scooter: Manual Wheel 50 Feet with Two Turns - CARE Score: 88 (11/18/22 1006 : Roxanne Goldberg PT) Wheel 50 Feet with Two Turns - CARE Score: 2 (12/13/221943 : Kellie Moran,PT) Wheel 150 Feet Physical Assistance Level: 76% or more Reason if not Attempted: Safety concerns Wheel 150 Feet - CARE Score: 88 Type of Wheelchair/Scooter: Manual Wheel 150 Feet - CARE Score: 88 (11/18/22 1006 : Roxanne Goldberg PT) Wheel 150 Feet - CARE Score: 2 (12/13/221943 : Kellie Moran PT) PT Other Ranch Helper Goals Flowsheet Row Most Recent Value Other PT Ranch Helper Goals Other Goals - Ranch Helper Mcfp 1, Ranch Helper 2 Filed on: 11/18/2022 105 Other Mcfp Goal 1 Patient will complete transfers with moderate assist of one person. Filed on: 11/18/20221056 Other Mcfp Goal 1 Status Not Achieved Filed on: 12/13/20221944 Other Mcfp Goal 2 Patient will complete bed mobility including rolling and supine<> sit transitions with minimal assistance. Filed on: 11/18/20221056 Other Ranch Helper Goal 2 Status Not Achieved Filed on: 12/13/20221944 Expected Achievement Date 12/15/22 Filed on: 11/18/20221056 Occupational Therapy Discharge Summary OT Current Functional Status: Ms. Darby's status at time of discharge is as follows: EATING: with supervision using right UE ORAL HYGIENE: with set up assistance using right UE at wheelchair level TOILETING: with dependence, requires assistance of 2 people (assist of one person with standing and another person for clothing management and hygiene) SHOWER/BATHING: with maximal assistance, used long handled sponge; she needed assist for thoroughness with washing feet/legs, buttocks and underarms. She was seated on rolling shower chair throughout shower. Aquaguard dressing used to cover former GI site, but dressing did get wet--nurse informed and changed dressing after shower. Helmet removed for hair washing. Ms. Darby did not stand during shower. UPPER BODY DRESSING: with maximal assistance, Ms. Darby attempted to assist pulling shirt over torso and assisted therapist with unthreading/threading shirt over head. Ms. Darby assisted with threading left UE and required assistance to thread right UE. Ms. Darby was able to unthread shirt over left and right UE. Ms. Darby requires assistance with sports bra LOWER BODY DRESSING: with dependence, Ms. Darby required assistance to cross left LE over right knee to thread pants over feet, Ms. Darby assisted by lifting her right LE into pant leg. Ms. Darby required assistance of one to stand and assistance of another to pull clothing up over hips FOOTWEAR: with maximal assistance, able to assist with doffing right sock and shoe, assist needed with all other aspects when sitting in wheelchair ROLL LEFT/RIGHT: with minimal assistance rolling to left using bed rail and maximal assistance rolling to right using bed rail SIT TO LYING: with dependence, using assist of 2 for safety LYING TO SITTING: with maximal assistance of one with increased time SIT TO STAND: with maximal assistance with support for left knee and hip while standing BED TO CHAIR TRANSFER: with maximal assistance using sliding board TOILET TRANSFER: with moderate to maximal assist of one to transfer to right onto bariatric commode, 2 person assit for safety transferring to commode to w/c on left side. Ms. Darby continues to present with no active movement in left UE. Increased tone in left shoulder. Left neglect with right gaze preference, however, Ms. Darby able to look towards left with cues. Ms. Darby requires increased time to process information and requires cues for safety and memory. Ms. Darby would benefit from continued OT services to work on maximizing functional independence. Recommend Ms. Darby use roll in shower, drop arm commode, sliding board, and stand lift for increased safety with transfers at home. Ms. Darby to be discharged home with family on 12/14/[address] [facility] and then services to follow. Weight Bearing Status: Full - No restrictions throughout Patient needs assistance with the following: Activities of daily living; Going out in the community; Memory; Use of patient user experience manager; Use of bathroom equipment; Vision; Positioning; Rolling; Sitting balance; Reaching Prosthetic/Orthotic Required: No OT Mcfp Goals: Care Score Legend 1 Dependent 2 Substantial/maximal assistance 3 Partial/moderate assistance 4 Supervision or touching assistance 5 Setup or clean-up assistance 6 Independent 7 Patient refused 9 N/A 10 Not attempted due to environmental limitations 88 Not attempted due to medical condition or safety concern Goal on Admission Admission Status Discharge Status Eating Assistance Needed: Physical assistance Physical Assistance Level: Total assistance Reason if not Attempted: Medical concerns Eating - CARE Score: 1 Eating - CARE Score: 1 (11/17/221740 : Katelyn West RN) Eating - CAREScore: 4 (12/13/22 133 : Bridgett Evangelista OT) Oral Hygiene Assistance Needed: Physical assistance Physical Assistance Level: Total assistance Oral Hygiene - CARE Score: 1 Oral Hygiene - CARE Score: 1 (11/17/222135 : Awilda Gonsalves RN) Oral Hygiene - CARE Score: 5 (12/13/224 : Bridgett Evangelista OT) Toileting Hygiene Assistance Needed: Physical assistance Physical Assistance Level: Total assistance Reason if not Attempted: Activity not applicable Toileting Hygiene - CARE Score: 1 Toileting Hygiene - CARE Score: 1 (11/17/222135 : Awilda Gonsalves RN) Toileting Hygiene - CARE Score: 1 (12/13/224 : Bridgett Evangelista OT) Shower/Bathe Self Assistance Needed: Physical assistance Physical Assistance Level: Total assistance Comment: Activity not attempted (therapy initial assessment Reason if not Attempted: Medical concerns Shower/Bathe Self - CARE Score: 88 Shower/Bathe Self - CARE Score: 88 (11/17/222135 : Awilda Gonsalves RN) Shower/Bathe Self - CARE Score: 2 (12/13/224 : Bridgett Evangelista OT) Upper Body Dressing Assistance Needed: Physical assistance Physical Assistance Level: Total assistance Comment: Activity not attempted Reason if not Attempted: Activity not applicable Upper Body Dressing - CARE Score: 1 Upper Body Dressing - CARE Score: 1 (11/17/222135 : Awilda Solo RN) Upper Body Dressing - CARE Score: 2 (12/13/224 : Bridgett Evangelista OT) Lower Body Dressing Assistance Needed: Physical assistance Physical Assistance Level: Total assistance Comment: Activity not attempted Reason if not Attempted: Activity not applicable Lower Body Dressing - CARE Score: 1 Lower Body Dressing - CARE Score: 1 (11/17/222135 : Awilda Solo RN) Lower Body Dressing - CARE Score: 1 (12/13/221333 : Bridgett Evangelista, OT) Putting On/Taking Off Footwear Assistance Needed: Physical assistance Physical Assistance Level: Total assistance Comment: Activity not attempted Reason if not Attempted: Safety concerns Putting On/Taking Off Footwear - CARE Score: 1 Putting On/Taking Off Footwear - CARE Score: 1 (11/17/222135 : Awilda Gonsalves RN) Putting On/Taking Off Footwear - CARE Score: 2 (12/13/221333 : Bridgett Evangelista, OT) Roll Left and Right Assistance Needed: Physical assistance Physical Assistance Level: Total assistance Comment: Two person assist to roll Roll Left and Right - CARE Score: 1 Roll Left and Right - CARE Score: 1 (11/18/221005 : Roxanne Goldberg PT) Roll Left and Right - CARE Score: 2 (12/13/221943 : Kellie Moran PT) Sit to Lying Assistance Needed: Physical assistance Physical Assistance Level: Total assistance Comment: Activirty not attempted Reason if not Attempted: Safety concerns Sit to Lying - CARE Score: 1 Sit to Lying - CARE Score: 1 (11/17/222135 : Awilda Gonsalves RN) Sit to Lying - CARE Score: 2 (12/13/221943 : Kellie Moran PT) Lying to Sitting on Side of Bed Assistance Needed: Physical assistance Physical Assistance Level: Total assistance Comment: Activirty not attempted Reason if not Attempted: Safety concerns Lying to Sitting on Side of Bed - CARE Score: 1 Lying to Sitting on Side of Bed - CARE Score: 1 (11/17/222135 : Awilda Gonsalves RN) Lying to Sitting on Side of Bed - CARE Score: 2 (12/13/221943 :Kellie Moran PT) Sit to Stand Assistance Needed: Physical assistance Physical Assistance Level: Total assistance Comment: Activity not attempted Reason if not Attempted: Safety concerns Sit to Stand - CARE Score: 1 Sit to Stand - CARE Score: 1 (11/17/222135 : Awilda Gonsalves RN) Sit to Stand - CARE Score: 2 (12/13/221943 : Kellie Moran PT) Chair/Xgo-cf-Vuprn Transfer Assistance Needed: Physical assistance Physical Assistance Level: Total assistance Comment: Activity not attempted Reason if not Attempted: Safety concerns Chair/[id number]-[id number] Transfer - CARE Score: 1 Chair/Bgc-bv-Jdhnl Transfer - CARE Score: 1 (11/17/221740 : Katelyn West RN) Chair/Qbe-bf-Obcns Transfer - CARE Score: 2 (12/13/221943 : Kellie Moran PT) Toilet Transfer Assistance Needed: Physical assistance Physical Assistance Level: Total assistance Comment: Activirty not attempted Reason if not Attempted: Safety concerns Toilet Transfer - CARE Score: 1 Toilet Transfer - CARE Score: 1 (11/17/222135 : Awilda Gonsalves RN) Toilet Transfer - CARE Score: 1 (12/13/22 1334 : Bridgett Evangelista OT) Speech Therapy Discharge Summary [employer] Current Functional Status: Ms. Darby is a 42 year-old female referred to speech therapy for evaluation and treatment following recent hospitalization with a diagnosis of stroke. Past medical history is significant for abdominal pain right upper quadrant, hemiplegic migraine, GERD, HTN. Prior to referral for a rehabilitation admission, patient did not require assistance for household ambulation, community level ambulation or self-care activities. 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 Ms. Darby's current functional status at discharge is as follows: SWALLOWING: A follow-up MBS was completed on 12/06/22 with results as follows: Significant improvement noted from prior swallow study performed on 11/27/22. Swallow initiation was timely with no pharyngeal residue observed. No aspiration observed with any consistency presented. Transient laryngeal penetration was observed x1 with thin liquid; no additional pharyngeal penetration observed. Patient presented with slowed mastication of the solid texture (cracker) due to left facial weakness. She was able to clear the oral cavity with only minimal residue remaining. TREATMENT RECOMMENDATIONS-- 1. Continue SOFT & BITE SIZED texture diet (IDDSI 6) 2. Begin THIN LIQUIDS (IDDSI 0) 3. Medications given whole with puree or with water as tolerated; may also be given through the PEG. 4. Upright for all PO intake 5. Slow rate during meals; Small bites/sips 6. Assist with set-up of tray. Monitor with meals and assist as needed. 7. Oral care following meals Patient's diet was upgraded to REGULAR texture with THIN LIQUIDS (IDDSI 7/0) on 12/08/22. COMPREHENSION: SUPERVISION. Patient is able to comprehend information regarding basic needs over 90% of the time. Increased difficulty noted with complex or abstract information. Patient presents with left visual impairment which interferes with reading comprehension and all visual tasks. EXPRESSION: MODIFIED INDEPENDENT. Patient is able to express information regarding complex or abstract topics with only mild difficulty. Speech is 100% intelligible. SOCIAL INTERACTION: MODIFIED INDEPENDENT. Patient interacts appropriately most of the time. She presents with flat affect and mildly reduced initiation. She presents with left side visual impairment which affects social interactions. PROBLEM SOLVING: MINIMAL ASSISTANCE. Patient solves routine problems at least 75% of the time. The Cognitive Linguistic Quick Test was completed. See results below. MEMORY: MODIFIED INDEPENDENT. Patient is able to recognize and remember people, routines, and requests with only mild difficulty. PROGRESS 11/20/22: Evaluation was completed on 11/18/22. All goals remain appropriate at this time due to limited number of sessions thus far. PROGRESS 11/27/22: Ms. Darby has made significant improvement this week in therapy. A MBS was completed and recommendation made to begin a PO diet of Pureed food items with Mildly Thick Liquids. Patient's speech intelligibility has improved so that she i; s fully intelligible. Improvement noted in functional problem-solving skills for routine daily tasks. She is able to remember familiar people and events at least 75% of the time. Overall endurance and participation in therapy tasks is improved. PROGRESS 12/04/22: Ms. Darby is seen for speech therapy 45 minutes daily for swallowing, communication and cognitive interventions to improve patient's swallowing safety and functional communication and cognitive abilities. She continues to make good progress in therapy. She is managing a pureed texture diet with mildly thick/nectar liquids. The SM Water Protocol was initiated on 11/30 and patient is tolerating with no difficulty reported. She participated in Neuromuscular Electrical Stimulation (PENS) 3x per week. A follow-up MBS is planned for this week. Patient's participation in therapy tasks is improved. Patient presents with left visual impairment, which limits her ability to perform written activities and to complete a formal cognitive assessment. The Cognitive Linguistic Quick Test is in progress. Patient participated in discussion of stroke risk factors and prevention. PROGRESS 12/11/22: Ms. Darby is seen for speech therapy 45 minutes daily for swallowing, communication and cognitive interventions to improve patient's swallowing safety and functional communication and cognitive abilities. She continues to make good progress towards her speech therapy goals. Patient's diet was upgraded this week to REGULAR texture with THIN LIQUIDS. The Cognitive Linguistic Quick Test was completed with results revealing severe impairments in attention, executive functions, and visuospatial skills. Memory and language skills scored WNL. Patient's left visual impairment impedes her performance on tasks targeting attention and executive skills. Improvement noted this week in verbal expression and functional memory skills for recall of people, daily events, and new information. DISCHARGE PLAN/RECOMMENDATIONS: Ms. Darby will be discharged home with her family providing assistance on 12/14/22. She will benefit from continued speech therapy services at the [facility] to further address functional cognitive skills for increased safety and independence in her home environment and to eventually return to her prior level of employment. Consuelo Darby: [X ]is able to state 2 risk factors without VCs prior to discharge [ ]requires cues to recall 2 stroke risk factors [ ] Is unable to state stroke risk factors due to communication or cognitive deficits; Education not yet completed. Ranch Helper Goals: Goal Discharge Status Level of Assistance to Meet Auditory Comprehension: Standby (less than 10%) Auditory Comprehension Details: Demonstrate auditory comprehension of complex questions, directions, and conversation to meet needs, complete tasks and interact socially with others within functionalliving environments Auditory Comprehension Expected Achievement Date: 12/02/22 Level of Assistance to Meet Memory: Standby (less than 10%) Memory Details: Demonstrate functional memory skills for recall of information relating to people, routines, overall health, and safety within functional living environments Memory Expected Achievement Date: 12/02/22 Level of Assistance to Meet Motor Speech: Min assist (10-24%) Motor Speech Details: Demonstrate functional speech intelligibility in multiple environments through self monitoring and implementation of newly learned strategies and exercises Motor Speech Expected Achievement Date: 12/02/22 Level of Assistance to Meet Swallowing: Standby (less than 10%) Swallowing Details: Safely consume a regular diet with all liquids with no overt signs or symptoms of aspiration or post swallow distress Swallowing Expected Achievement Date: 12/02/22 CC: Valdez Clay Jr., MD, MD TIME SPENT ON DISCHARGE: more than 30 minutes documented in this encounter Discharge Instructions * Discharge Instructions* Nghia Pryor MD - 12/14/2022 7:42 AM CDT Follow up with your primary care physician in 3-5 days Please let your primary care doctor know if there are any issues with your G-tube * Discharge Instr-PT* Kellie Moran, PT - 12/13/2022 7:38 PM CDT Current level of help needed at this time: Transfers: use the transfer board for more level transfers and recommend the mechanical lift as needed to varied surfaces or more prolonged standing. Walking: only walk with therapy at this time Wheelchair Use: use your right arm and leg to help move the chair with someone else helping the left side. Make sure to scan left and locate objects on left. Stair Climbing: not safe in stance at this time. Up and down a curb in wheelchair- POSITIONING: frequent position changes and use of the wedges for support. Can use left abductor wedge (pink) as needed to help keep left leg down while sleeping. Use pillows to support under heels orelbows and monitor for pressure redness. Should jonathan when touched and any redness should go away within 15 minutes. Can do standing with help of someone on your left. Have something to hold onto on your right and the helper pushes on left knee to keep it from buckling. Home Exercise Program: Continue following the exercise program that was instructed to you by your therapist prior to discharge. * Discharge Instr-OT* Bridgett Evangelista, OT - 12/13/2022 1:56 PM CDT Current functional status and/or level of assist required for Activities of Daily Living upon discharge: Oral Care: you need someone to set you up with oral care items, encourage to look towards left for items Dressing: you need someone to set clothes out and help with dressing both upper and lower body dressing. Remember when dressing you will always start with dressing the weaker side. When undressing, you will start with the stronger side. When you are helping with dressing, you should be sitting up in a wheelchair so you have the support for your sitting balance. If you are sitting in the wheelchair, you will have to have someone stand with you and another person to pull clothing over hips. You might need to use stand lift to assist with standing and pulling clothing over hips, however, watch balance to left side. When you are in bed, you should roll side to side to get your shirt down over back and pants over buttocks. Bathing: You should either perform sponge bathing or use roll in shower chair. If in wheelchair, you will need someone stand with you while another person assists with cleaning glenis area and buttocks, or use stand lift, however, watch balance to left side. If in shower chair, do not stand at this time from chair, access area in shower chair to clean glenis area and buttocks. You have the long handled sponge that you should try to keep using to help with washing lower body. Toileting: if sitting on drop arm commode, you will need either 2 people to help (one to stand you and another to help with hygiene and clothing management), you can use stand lift to be able to perform clothing management and hygiene, however, watch balance to left. Precautions: Splint: wear your left arm splint at night and watch for skin break down Preventing edema in your hand: support left arm on lap tray or pillow Shoulder Pain: support left arm on lap tray or pillow, use sonya sling for transfers only Vision: Remember to look to your left when performing any activities. Home Exercise Program: Continue following the exercise program that was instructed to you by your therapist prior to discharge. * Discharge Instr-[employer]* [facility] - 12/13/2022 5:17 PM CDT Swallowing Recommendations: Current Diet: IDDSI 7- Regular (RG7): Normal everyday solid foods. No restriction on piece size or texture of food. Biting and chewing required. and IDDSI 0- Thin Liquids - all liquids- no restrictions (Tn0): Flows like water. Syringe Flow Test - Less than 1 ml remaining in a 10 ml syringe after 10sec of flow.. Swallow Safety / Strategies: Check that your mouth is clear after eating, Eat and drink slowly. Be sure to swallow each bite or drink before taking your next bite of food or drink, Sit all the way upwhen eating and drinking, Take small bites of food, and Take small sips of liquid. Level of Supervision at Meals: You need help setting up your tray for meals. Communication: Your primary mode of communication is verbal. Current status and/or level of assistance required for Communication and Thinking skills on discharge: Understanding: You will not need anyone to help you understand spoken information, instructions, and conversation. Reading: You will need someone to help you understand simple written information. Communication: You will not need anyone to help you communicate. Completing Tasks: You will need someone to help you complete complex tasks such as meal preparation, following daily routines, managing finances. Memory: You will need someone to help you remember information but are able to use written reminders with assistance. Noise / Stimulation: You do best with a low stimulation environment (lights off, TV off, closed door, speaking softly, one person in room at a time). documented in this encounter Medications at Time of Discharge acetaminophen (TYLENOL) 500 MG tablet Administer 1 tablet (500 mg total) per tube every 6 (six) hours as needed for mild pain or moderate pain (Fever). 0 12/14/2022 baclofen (LIORESAL) 5 MG tablet tablet Take 1 tablet (5 mg total) by mouth nightly. 30 tablet 12/14/2022 bethanechol (URECHOLINE) 25 MG tablet Take 1 tablet (25 mg total) by mouth 3 (three) times a day. 90 tablet 12/14/2022 cholecalciferol (VITAMIN D3) 25 MCG (1000 UT) tablet Administer 2 tablets (2,000 Units total) per tube in the morning. 60 tablet 12/14/2022 cyclobenzaprine (FLEXERIL) 5 MG tablet Take 1 tablet (5 mg total) by mouth 3 (three) times a day. 90 tablet 12/14/2022 gabapentin (NEURONTIN) 300 MG capsule Take 1 capsule (300 mg total) by mouth 3 (three) times a day. 90 capsule 12/14/2022 hydrOXYzine (ATARAX) 25 MG tablet Take 1 tablet (25 mg total) by mouth every 6 (six) hours as needed for anxiety. 30 tablet 12/14/2022 loratadine (CLARITIN) 10 MG tablet 1 tablet (10 mg total) by Enteral route in the morning. 30 tablet 12/14/2022 metoprolol tartrate (LOPRESSOR) 25 MG tablet 1 tablet (25 mg total) by Enteral route in the morning and 1 tablet (25 mg total) before bedtime. 60 tablet 12/14/2022 muscle rub (ICY HOT) 10-15 % cream cream Apply 1 application topically 3 (three) times a day. 85 g 12/14/2022 oxyCODONE (ROXICODONE) 5 MG immediate release tabletIndication s:Acute Pain 1 tablet (5 mg total) by Enteral route every 8 (eight) hours as needed for severe pain Indications: Acute Pain. Max Daily Amount: 15 mg 21 tablet 12/14/2022 pantoprazole (PROTONIX) 40 MG EC/DR tablet Take 1 tablet (40 mg total) by mouth Daily at 6am. 30 tablet 12/15/2022 polyethylene glycol (MIRALAX) 17 g packet Administer 17 g per tube 2 (two) times a day as needed (offer first line). 10 each 12/14/2022 senna-docusate (SENOKOT-S) 8.6-50 MG Take 2 tablets by mouth daily as needed for constipation (offer third line). 0 12/14/2022 tamsulosin (FLOMAX) 0.4 MG capsule 1 capsule (0.4 mg total) by Enteral route After Breakfast. 30 capsule 12/14/2022 verapamil (CALAN) 40 MG tablet Take 1 tablet (40 mg total) by mouth every 8 (eight) hours. 90 tablet 12/14/2022 warfarin 1 MG tablet Take 3.5 tablets (3.5 mg total) by mouth in the evening. Take as directed per After Visit Summary.. 20 tablet 12/14/2022 cefdinir (OMNICEF) 300 MG capsuleIndicatio ns:Uncomplicated Urinary Tract Infection Take 1 capsule (300 mg total) by mouth in the morning and 1 capsule (300 mg total) before bedtime. Do all this for 1 dose. Indications: Simple Infection of the Urinary Tract. 1 capsule 12/14/2022 3 documented as of this encounter Progress Notes * Nghia Pryor MD - 12/13/2022 1:46 PM CDT HOSPITALIST PROGRESS NOTE Patient Name: Consuelo Darby : 1980 Medical Record: [id number] ATTENDING Yamileth Frias MD SUBJECTIVE 11/19 The patient is being seen for follow-up of Cerebrovascular accident. BP, BS , HR, labs, strength. .Chief Complaint CT head ok Headache much better Got upto chair without helmet =did ok Working on better helmet Consider spinal headache if recurs- d/w dr Villagran strength improving, able to do therapy ok. No chest pain, no SOB, no dizziness, no palpitations, no new neurologic symptoms. No cough, No nausea or vomiting, No abdominal pain. History also obtained from Nurse and staff about how the patient did overnight and during the day strength improving, able to do therapy ok. 11/20 Patient seen an examined Doing alright No new issues to report Vitals reviewed 11/21 Patient seen and examined earlier No new issues to report Vitals reviewed Resting comfortably 11/22 Patient seen and examined Doing alright at this time Resting comfortably Vitals reviewed 11/23 The patient was seen in the room this afternoon. The patient currently does not report any chest pain, shortness present nausea or vomiting No reported issues from the floor nurse. The most recent labs and vital signs were reviewed. 11/24: Patient seen and examined this morning. Patient complaining of bilateral hip pain. Have placed order for Flexeril and lidocaine patch. No acute events reported overnight. Blood work and vital signs remained stable. Continue current medical management. 11/25: Patient seen and examined this morning. Patient continues to complain of bilateral hip pain. Continue lidocaine patches. Have scheduled Flexeril 5 mg t.i.d.. Continue current medical management. 11/26: Patient seen and examined this morning. Patient continues to complain of hip pain. Follow up left hip x-ray. Follow up with PM&R for further recommendations. Continue Lovenox. Have discussed Coumadin dosing with pharmacy. Goal to have INR from 2-3. No acute events reported overnight. Continue current medical management. 11/27:Patient seen and examined this morning. Vitals and labs reviewed. Resting comfortably. No acute events overnight. Continue current medical management. 11/30 Patient seen and examined Doing ok. No new issues to report 12/01 Patient seen and examined earlier this afternoon. Things are going well. No new issues to report. 12/02:Patient seen and examined this morning. Vitals and labs reviewed. Resting comfortably. No acute events overnight. Continue current medical management. 12/03: Patient seen and examined this morning. Patient complaining of sharp shooting pain around herleft hip area. Have started gabapentin 300 mg t.i.d.. Vital signs and blood work reviewed. INR at goal. Continue current medical management. 12/04 Patient seen and examined. Doing ok at this time. No new issues to report. Vitals reviewed. 12/05 Patient seen and examined earlier today. Doing alright. No new issues to report. Vitals reviewed. Having pain in hip. Discussed with dr. Frias 12/06 Patient seen and examined. Doing alright currently. No new issues to report. Vitals reviewed. 12/07 Patient seen and examined today. Doing alright. No new issues to report. Vitals reviewed. 12/08 Patient seen and examined. Doing alright. No new issues. 12/09 Patient seen and examined today. Doing well. Says she had steroid injection yesterday. Feels about the same. 12/10 Patient seen and evaluated on daily rounds. No overnight events reported by staff. patient slept ok last night. Appetite and PO ok.Patent participating with therapy and cares. Denies any complaints VS ok C/o constipation Lactulose 12/11 Patient seen and examined. Doing alright No new issues to report. Vitals reviewed 12/12 Patient seen and examined Doing alright No new issues to report Vitals reviewed 12/13 Patient seen and examined Doing alright No new issues to report In good spirits BRIEF HISTORY The patient is a 42 y.o. y/o female with history of HTN, GERD, presented tO ED with new left sided weakness and slurred speech Diagnosed with acute CVA s/p TNK and m1 occlusion S/P MT . c/b R iliac and common femoral artery occlusion s/p thrombectomy. Developed Fever: consulted ID, broaden abx, Cxs. - MRI brain w/wo done (11/10): cortical enhancement along the right frontal parietal and temporal regions 2/2 infarct progression but can't rule out cerebritis or infections.however LP neg. Also had glenis PEG fluid collection: Improved on abx - Urology replaced puentes (11/09-) Extubated, now on RA HOME Medications Prior to Admission medications Medication Sig Start Date End Date Taking? Authorizing Provider cetirizine (ZyrTEC) 10 MG tablet Take 1 tablet (10 mg total) by mouth in the morning. Yes Historical Provider, omeprazole (PriLOSEC) 20 MG capsule Take 1 capsule (20 mg total) by mouth in the morning. Yes Historical Provider, amitriptyline (ELAVIL) 50 MG tablet 2 tablets (100 mg total) nightly. Historical Provider, CURRENT Medications Current Facility-Administered Medications: acetaminophen (TYLENOL) tablet 500 mg, 500 mg, Per Tube, Q6H PRN, Nghia Pryor MD, 500 mg at 12/07/22 1353 baclofen (LIORESAL) tablet 5 mg, 5 mg, Oral, Nightly, Yamileth Frias MD, 5 mg at 12/12/22 211 bethanechol (URECHOLINE) tablet 25 mg, 25 mg, Oral, 3 times per day, Yamileth Frias MD, 25 mg at 12/13/22 08 bisacodyl (DULCOLAX) suppository 10 mg, 10 mg, Rectal, Daily PRN, Yamileth Frias MD, 10 mg at 12/10/22 1255 cefdinir (OMNICEF) capsule 300 mg, 300 mg, Oral, 2 times per day, Nghia Pryor MD, 300 mg at 12/13/22 0806 cholecalciferol (VITAMIN D3) tablet 2,000 Units, 2,000 Units, Per Tube, Once a day, Nghia Pryor MD, 2,000 Units at 12/13/22805 cyclobenzaprine (FLEXERIL) tablet 5 mg, 5 mg, Oral, 3 times per day, Loy Dawson MD, 5 mg at 12/13/22805 gabapentin (NEURONTIN) capsule 300 mg, 300 mg, Oral, 3 times per day, Loy Dawson MD, 300 mg at 12/13/22804 guaiFENesin (ROBITUSSIN) 100 MG/5ML liquid 10 mL, 10 mL, Enteral, BID PRN, Nghia Pryor MD hydrocortisone (ANUSOL-HC) 2.5 % rectal cream, , Rectal, 2 times per day, Loy Dawson MD, Given at 12/12/222119 hydrOXYzine (ATARAX) tablet 25 mg, 25 mg, Oral, Q6H PRN, Yamileth Frias MD, 25 mg at 12/12/222119 lidocaine (LIDOCARE) 4 % patch 1 patch, 1 patch, Transdermal, Once a day, Loy Dawson MD, 1 patch at 12/12/22 09 loratadine (CLARITIN) tablet 10 mg, 10 mg, Enteral, Once a day, Nghia Pryor MD, 10 mg at 12/13/22805 metoprolol tartrate (LOPRESSOR) tablet 25 mg, 25 mg, Enteral, 2 times per day, Nghia Pryor MD, 25 mg at 12/13/22804 muscle rub (ICY HOT) 10-15 % cream, , Topical, 3 times per day, Yamileth Frias MD, Given at 12/13/22804 ondansetron ODT (ZOFRAN-ODT) disintegrating tablet 4 mg, 4 mg, Per Tube, Q6H PRN, Marlee Bradley MD, 4 mg at 12/12/22 0512 oxyCODONE (ROXICODONE) immediate release tablet 5 mg, 5 mg, Enteral, Q4H PRN, Marlee Bradley MD, 5mg at 12/13/22 08 oxyCODONE (ROXICODONE) immediate release tablet 5 mg, 5 mg, Oral, Daily at 0600, Yamileth Frias MD, 5 mg at 12/13/22 0527 [START ON 12/14/2022] pantoprazole (PROTONIX) EC/DR tablet 40 mg, 40 mg, Oral, Daily at 0600, Kwadwo Pryor MD polyethylene glycol (MIRALAX) packet 17 g, 17 g, Per Tube, BID PRN, Yamileth Frias MD, 17 g at 12/13/22 1146 senna-docusate (SENOKOT-S) 8.6-50 MG tablet 2 tablet, 2 tablet, Enteral, Daily PRN, Yamileth Frias MD simethicone (MYLICON) chewable tablet 80 mg, 80 mg, Per Tube, BID PRN, Marlee Bradley MD, 80 mg at11/28/222051 tamsulosin (FLOMAX) 24 hr capsule 0.4 mg, 0.4 mg, Enteral, After Breakfast, Nghia Pryor MD, 0.4 mg at 12/13/22805 triamcinolone (KENALOG) 0.1 % ointment, , Apply externally, BID PRN, Nghia Pryor MD, Given at 11/20/222014 verapamil (CALAN) tablet 40 mg, 40 mg, Enteral, Q8H SENDY, Nghia Pryor MD, 40 mg at 12/13/22526 Warfarin Per Policy, , Does not apply, Daily, Nghia Pryor MD warfarin tablet 3.5 mg, 3.5 mg, Oral, Daily, Yamileth Frias MD DATA Vitals: 12/12/22 0709 12/12/22 0903 12/12/22 1920 12/13/22 0731 BP: 108/70 112/71 108/57 114/79 Pulse: 63 63 80 71 Resp: 18 17 17 Temp: 97.9 ??F (36.6 ??C) 98 ??F (36.7 ??C) 97.8 ??F (36.6 ??C) TempSrc: Oral Oral Oral SpO2: 94% 97% 95% Weight: Height: Weights (last 3 days) Date/Time Weight 12/10/22 0554 192 lb (87.1 kg) @ANTICOAGSUMMARY@ @FLOWDATE(2706:LAST)@ Intake/Output Summary (Last 24 hours) at 12/13/2022 1347 Last data filed at 12/13/2022 1311 Gross per 24 hour Intake 1440 ml Output 2450 ml Net -1010 ml PHYSICAL EXAM General: Patient in no acute distress, awake, alert Head: Atraumatic/Normocephalic Respiratory: No use of accessory muscles Extremities: No visible swelling Skin: No rashes, no ulcers on visible skin Neuro: No obvious neurologic deficits Psych: mood appears appropriate LABS CBC with Differential: Lab Results Component Value Date WBC 10.7 12/11/2022 HGB 10.8 (L) 12/11/2022 HCT 33.0 (L) 12/11/2022 PLT 401 12/11/2022 MCV 92.4 12/11/2022 MCH 30.3 12/11/2022 MCHC 32.7 12/11/2022 RDW 15.1 (H) 12/11/2022 [ BMP: Lab Results Component Value Date NA 141 12/11/2022 K 4.2 12/11/2022 CL 110 (H) 12/11/2022 CO2 21 (L) 12/11/2022 BUN 11 12/11/2022 CREATININE 0.66 12/11/2022 GLUCOSE 113 (H) 12/11/2022 CALCIUM 9.0 12/11/2022 ANIONGAP 10 12/11/2022 MG/PHOS: No results found for: MG, PHOS CKMB: No components found for: CKMB;2 PT/INR: Lab Results Component Value Date INR 2.3 (H) 12/13/2022 BNP: No results found for: BNP Last 3 Troponin: No components found for: TROPONINI;3 U/A: No results found for: COLORU, CLARITYU, GLUCOSEU, BILIRUBINUR, KETONESU, SPECGRAV, BLOODU, PHUR, UROBILINOGEN, NITRITE, LEUKOCYTESUR, MUCUS, RBCUA, WBCUA CMP: Lab Results Component Value Date NA 141 12/11/2022 K 4.2 12/11/2022 CL 110 (H) 12/11/2022 CO2 21 (L) 12/11/2022 BUN 11 12/11/2022 CREATININE 0.66 12/11/2022 GLUCOSE 113 (H) 12/11/2022 CALCIUM 9.0 12/11/2022 ANIONGAP 10 12/11/2022 LFT's: No results found for: ALB, PROT Ionized Calcium: No components found for: IONCA ABG: No results found for: PHART, QVY3TAO, PO2ART, JFO8THJ, BEART, V0MMWLWL HgBA1c: No results found for: HGBA1C Lipid Panel: No results found for: CHOL, TRIG, HDL TSH: No results found for: TSH Lab Results Component Value Date GLUCOSE 113 (H) 12/11/2022 BUN 11 12/11/2022 CREATININE 0.66 12/11/2022 NA 141 12/11/2022 K 4.2 12/11/2022 CL 110 (H) 12/11/2022 CO2 21 (L) 12/11/2022 CALCIUM 9.0 12/11/2022 @RESU CBC: Recent Labs Lab Units 12/11/22 0001 WBC X(10)9/L BLOOD x10E9/L 10.7 HGB GM/DL BLOOD gm/dL 10.8* PLT CT X(10)9/L BLOOD x10E9/L 401 MCV FL BLOOD fl 92.4 BMP: Recent Labs Lab Units 12/11/22 0001 SODIUM MMOL/L BLOOD mmol/L 141 POTASSIUM MMOL/L BLOOD mmol/L 4.2 CHLORIDE mmol/L 110* CO2 mmol/L 21* BUN MG/DL BLOOD mg/dL 11 CREATININE mg/dL 0.66 GLUCOSE MG/DL BLOOD mg/dL 113* CALCIUM MG/DL BLOOD mg/dL 9.0 I reviewed the EKG tracing/Xray Recent Labs Lab Units 12/11/22 0001 SODIUM MMOL/L BLOOD mmol/L 141 POTASSIUM MMOL/L BLOOD mmol/L 4.2 CHLORIDE mmol/L 110* CO2 mmol/L 21* BUN MG/DL BLOOD mg/dL 11 CREATININE mg/dL 0.66 GLUCOSE MG/DL BLOOD mg/dL 113* CALCIUM MG/DL BLOOD mg/dL 9.0 ANION GAP BLOOD mmol/L 10 ASSESSMENT AND PLAN Principal Problem: Cerebrovascular accident Active Problems: Trochanteric bursitis of left hip Acute R MCA CVA Left hemiplegia /p TNK and MT and TICI2b revascularization on 10/19. Developed MCA syndrome s/p hemicrani. Therapy Worsening headache- check CT head Poor tolerance to helmet vs spinal headache cerebral edema and midline shift s/p hemicraniectomy 10/20/22 Incision care R iliac and common femoral artery occlusion 10/30: R common femoral thrombectomy and patch angioplasty Warfarin Fever Fever: consulted ID, shanna abx, Cxs. - MRI brain w/wo done (11/10): cortical enhancement along the right frontal parietal and temporal regions 2/2 infarct progression but can't rule out cerebritis or infections.LP not concerning, however. -- glenis PEG fluid collection: Improved on abx - Urology replaced puentes (11/09-) TTE showed mobile aortic valve vegetation. IV abxs HTN Continue meds Migraine without aura Pian control GERD PPI Oral contraceptive use DVT Prophylaxis Obesity BMI 36 Nutrition consult Abn LFT Check hep screen Watch with statin D Pain management Today's pain score FEN. Nutrition consult for evaluation of nutritional status and the best diet. And for BMI evaluation and education regarding maintaining a healthy BMI Bladder management Voiding ok Bowel management . Titrate bowel medications for constipation/diarrhea. Skin. Nursing to address skin care throughout stay. Turn every 2 hrs Sleep. Monitor sleep-wake cycle. High Fall risk- Fall precautions GI Prophylaxis: DVT Prophylaxis: Full Resuscitation D/W patient , and attending physician about test results and treatment plan .No family in the room.Patient requiring monitoring of BP and HR while doing 3 hour intensive exercises to avoid fluctuations and hypotension . Aswell as monitoring of nutritional and fluid status , by weights, leg edema .Notified staff and patient to notify me of any change inconditions or new problems Electronically signed by: NGHIA PRYOR MD, at [facility] basically DUI may be GI need a I diving lysis consult subacute S do * Gonzalez Egan, ManuelD - 12/13/2022 10:23 AM CDT [facility] Pharmacy Note Pharmacy Consultation - Warfarin Dosing and Monitoring Consuelo Darby is a 42 y.o. female who has been consulted for pharmacy warfarin dosing and monitoring for indication of embolic stroke. Labs: INR Date Value Ref Range Status 12/13/2022 2.3 (H) 0.9 - 1.1 Final 12/12/2022 2.3 (H) 0.9 - 1.1 Final 12/11/2022 2.3 (H) 0.9 - 1.1 Final 12/07/2022 2.4 (H) 0.9 - 1.1 Final 12/05/2022 2.6 (H) 0.9 - 1.1 Final HGB gm/dL Blood Date Value Ref Range Status 12/11/2022 10.8 (L) 12.0 - 15.6 gm/dL Final 12/07/2022 10.2 (L) 12.0 - 15.6 gm/dL Final 12/04/2022 10.2 (L) 12.0 - 15.6 gm/dL Final HCT % Blood Date Value Ref Range Status 12/11/2022 33.0 (L) 35.9 - 45.5 % Final 12/07/2022 32.1 (L) 35.9 - 45.5 % Final 12/04/2022 32.5 (L) 35.9 - 45.5 % Final Plt Ct X(10)9/L Blood Date Value Ref Range Status 12/11/2022 401 153 - 416 x10E9/L Final 12/07/2022 319 153 - 416 x10E9/L Final 12/04/2022 269 153 - 416 x10E9/L Final Current Facility-Administered Medications: acetaminophen (TYLENOL) tablet 500 mg, 500 mg, Per Tube, Q6H PRN, Nghia Pryor MD, 500 mg at 12/07/22 1353 baclofen (LIORESAL) tablet 5 mg, 5 mg, Oral, Nightly, Yamileth Frias MD, 5 mg at 12/12/22 211 bethanechol (URECHOLINE) tablet 25 mg, 25 mg, Oral, 3 times per day, Yamileth Frias MD, 25 mg at 12/13/22 08 bisacodyl (DULCOLAX) suppository 10 mg, 10 mg, Rectal, Daily PRN, Yamileth Frias MD, 10 mg at 12/10/22 1255 cefdinir (OMNICEF) capsule 300 mg, 300 mg, Oral, 2 times per day, Nghia Pryor MD, 300 mg at 12/13/22 0806 cholecalciferol (VITAMIN D3) tablet 2,000 Units, 2,000 Units, Per Tube, Once a day, Nghia Pryor MD, 2,000 Units at 12/13/22805 cyclobenzaprine (FLEXERIL) tablet 5 mg, 5 mg, Oral, 3 times per day, Loy Dawson MD, 5 mg at 12/13/22805 gabapentin (NEURONTIN) capsule 300 mg, 300 mg, Oral, 3 times per day, Loy Dawson MD, 300 mg at 12/13/22804 guaiFENesin (ROBITUSSIN) 100 MG/5ML liquid 10 mL, 10 mL, Enteral, BID PRN, Nghia Pryor MD hydrocortisone (ANUSOL-HC) 2.5 % rectal cream, , Rectal, 2 times per day, Loy Dawson MD, Given at 12/12/222119 hydrOXYzine (ATARAX) tablet 25 mg, 25 mg, Oral, Q6H PRN, Yamileth Frias MD, 25 mg at 12/12/222119 lidocaine (LIDOCARE) 4 % patch 1 patch, 1 patch, Transdermal, Once a day, Loy Dawson MD, 1 patch at 12/12/22903 loratadine (CLARITIN) tablet 10 mg, 10 mg, Enteral, Once a day, Nghia Pryor MD, 10 mg at 12/13/22805 metoprolol tartrate (LOPRESSOR) tablet 25 mg, 25 mg, Enteral, 2 times per day, Nghia Pryor MD, 25 mg at 12/13/22804 muscle rub (ICY HOT) 10-15 % cream, , Topical, 3 times per day, Yamileth Frias MD, Given at 12/13/22804 ondansetron ODT (ZOFRAN-ODT) disintegrating tablet 4 mg, 4 mg, Per Tube, Q6H PRN, Marlee Bradley MD, 4 mg at 12/12/22 0512 oxyCODONE (ROXICODONE) immediate release tablet 5 mg, 5 mg, Enteral, Q4H PRN, Marlee Bradley MD, 5mg at 12/13/22 08 oxyCODONE (ROXICODONE) immediate release tablet 5 mg, 5 mg, Oral, Daily at 0600, Yamileth Frias MD, 5 mg at 12/13/22 0527 pantoprazole-sodium bicarbonate 2mg/ml oral liquid 40 mg, 40 mg, Per Tube, Daily bef breakfast, Marlee Bradley MD, 40 mg at 12/13/22 0548 polyethylene glycol (MIRALAX) packet 17 g, 17 g, Per Tube, BID PRN, Yamileth Frias MD senna-docusate (SENOKOT-S) 8.6-50 MG tablet 2 tablet, 2 tablet, Enteral, Daily PRN, Yamileth Frias MD simethicone (MYLICON) chewable tablet 80 mg, 80 mg, Per Tube, BID PRN, Marlee Bradley MD, 80 mg at11/28/222051 tamsulosin (FLOMAX) 24 hr capsule 0.4 mg, 0.4 mg, Enteral, After Breakfast, Nghia Pryor MD, 0.4 mg at 12/13/22805 triamcinolone (KENALOG) 0.1 % ointment, , Apply externally, BID PRN, Nghia Pryor MD, Given at 11/20/222014 verapamil (CALAN) tablet 40 mg, 40 mg, Enteral, Q8H SENDY, Nghia Pryor MD, 40 mg at 12/13/22526 Warfarin Per Policy, , Does not apply, Daily, Nghia Pryor MD warfarin tablet 3.5 mg, 3.5 mg, Oral, Daily, Yamileth Frias MD Assessment: Warfarin Indication: embolic stroke due to septic emboli; MT c/b R iliac and common femoral artery occlusion s/p thrombectomy. INR Goal: 2-3 Today's INR is 2.3 and is therapeutic. Bridging Therapy: No, describe: complete Risk Factors for Bleeding: Fluconazole PO course finished on dose Pertinent Medication Related to Warfarin: na Plan: 1. Administer warfarin 3.5 mg by mouth today 2. Check INR on Sunday. Pharmacy will follow up with INR recheck and order subsequent warfarin doses pending INR results. 3.The patient will continue to be monitored by the pharmacy department for the duration of the length of stay for assurance of medication safety and efficacy. GONZALEZ EGAN, PharmD 10:23 AM CDT 12/13/22 * Nghia Pryor MD - 12/12/2022 12:30 PM CDT HOSPITALIST PROGRESS NOTE Patient Name: Consuelo Darby : 1980 Medical Record: [id number] ATTENDING Yamileth Frias MD SUBJECTIVE 11/19 The patient is being seen for follow-up of Cerebrovascular accident. BP, BS , HR, labs, strength. .Chief Complaint CT head ok Headache much better Got upto chair without helmet =did ok Working on better helmet Consider spinal headache if recurs- d/w dr Villagran strength improving, able to do therapy ok. No chest pain, no SOB, no dizziness, no palpitations, no new neurologic symptoms. No cough, No nausea or vomiting, No abdominal pain. History also obtained from Nurse and staff about how the patient did overnight and during the day strength improving, able to do therapy ok. 11/20 Patient seen an examined Doing alright No new issues to report Vitals reviewed 11/21 Patient seen and examined earlier No new issues to report Vitals reviewed Resting comfortably 11/22 Patient seen and examined Doing alright at this time Resting comfortably Vitals reviewed 11/23 The patient was seen in the room this afternoon. The patient currently does not report any chest pain, shortness present nausea or vomiting No reported issues from the floor nurse. The most recent labs and vital signs were reviewed. 11/24: Patient seen and examined this morning. Patient complaining of bilateral hip pain. Have placed order for Flexeril and lidocaine patch. No acute events reported overnight. Blood work and vital signs remained stable. Continue current medical management. 11/25: Patient seen and examined this morning. Patient continues to complain of bilateral hip pain. Continue lidocaine patches. Have scheduled Flexeril 5 mg t.i.d.. Continue current medical management. 11/26: Patient seen and examined this morning. Patient continues to complain of hip pain. Follow up left hip x-ray. Follow up with PM&R for further recommendations. Continue Lovenox. Have discussed Coumadin dosing with pharmacy. Goal to have INR from 2-3. No acute events reported overnight. Continue current medical management. 11/27:Patient seen and examined this morning. Vitals and labs reviewed. Resting comfortably. No acute events overnight. Continue current medical management. 11/30 Patient seen and examined Doing ok. No new issues to report 12/01 Patient seen and examined earlier this afternoon. Things are going well. No new issues to report. 12/02:Patient seen and examined this morning. Vitals and labs reviewed. Resting comfortably. No acute events overnight. Continue current medical management. 12/03: Patient seen and examined this morning. Patient complaining of sharp shooting pain around herleft hip area. Have started gabapentin 300 mg t.i.d.. Vital signs and blood work reviewed. INR at goal. Continue current medical management. 12/04 Patient seen and examined. Doing ok at this time. No new issues to report. Vitals reviewed. 12/05 Patient seen and examined earlier today. Doing alright. No new issues to report. Vitals reviewed. Having pain in hip. Discussed with dr. Frias 12/06 Patient seen and examined. Doing alright currently. No new issues to report. Vitals reviewed. 12/07 Patient seen and examined today. Doing alright. No new issues to report. Vitals reviewed. 12/08 Patient seen and examined. Doing alright. No new issues. 12/09 Patient seen and examined today. Doing well. Says she had steroid injection yesterday. Feels about the same. 12/10 Patient seen and evaluated on daily rounds. No overnight events reported by staff. patient slept ok last night. Appetite and PO ok.Patent participating with therapy and cares. Denies any complaints VS ok C/o constipation Lactulose 12/11 Patient seen and examined. Doing alright No new issues to report. Vitals reviewed 12/12 Patient seen and examined Doing alright No new issues to report Vitals reviewed BRIEF HISTORY The patient is a 42 y.o. y/o female with history of HTN, GERD, presented tO ED with new left sided weakness and slurred speech Diagnosed with acute CVA s/p TNK and m1 occlusion S/P MT . c/b R iliac and common femoral artery occlusion s/p thrombectomy. Developed Fever: consulted ID, broaden abx, Cxs. - MRI brain w/wo done (11/10): cortical enhancement along the right frontal parietal and temporal regions 2/2 infarct progression but can't rule out cerebritis or infections.however LP neg. Also had glenis PEG fluid collection: Improved on abx - Urology replaced puentes (11/09-) Extubated, now on RA HOME Medications Prior to Admission medications Medication Sig Start Date End Date Taking? Authorizing Provider cetirizine (ZyrTEC) 10 MG tablet Take 1 tablet (10 mg total) by mouth in the morning. Yes Historical Provider, omeprazole (PriLOSEC) 20 MG capsule Take 1 capsule (20 mg total) by mouth in the morning. Yes Historical Provider, amitriptyline (ELAVIL) 50 MG tablet 2 tablets (100 mg total) nightly. Historical Provider, CURRENT Medications Current Facility-Administered Medications: acetaminophen (TYLENOL) tablet 500 mg, 500 mg, Per Tube, Q6H PRN, Nghia Pryor MD, 500 mg at 12/07/22 1353 baclofen (LIORESAL) tablet 5 mg, 5 mg, Oral, Nightly, Yamileth Frias MD, 5 mg at 12/11/22 2135 bethanechol (URECHOLINE) tablet 25 mg, 25 mg, Oral, 3 times per day, Yamileth Frias MD, 25 mg at 12/12/22 09 bisacodyl (DULCOLAX) suppository 10 mg, 10 mg, Rectal, Daily PRN, Yamileth Frias MD, 10 mg at 12/10/22 1255 cefdinir (OMNICEF) capsule 300 mg, 300 mg, Oral, 2 times per day, Nghia Pryor MD, 300 mg at 12/12/22901 cholecalciferol (VITAMIN D3) tablet 2,000 Units, 2,000 Units, Per Tube, Once a day, Nghia Pryor MD, 2,000 Units at 12/12/22902 cyclobenzaprine (FLEXERIL) tablet 5 mg, 5 mg, Oral, 3 times per day, Loy Dawson MD, 5 mg at 12/12/22901 fluconazole (DIFLUCAN) tablet 200 mg, 200 mg, Oral, Once a day, Yamileth Frias MD, 200 mg at 12/12/22 09 gabapentin (NEURONTIN) capsule 300 mg, 300 mg, Oral, 3 times per day, Loy Dawson MD, 300 mg at 12/12/22 09 guaiFENesin (ROBITUSSIN) 100 MG/5ML liquid 10 mL, 10 mL, Enteral, BID PRN, Nghia Pryor MD hydrocortisone (ANUSOL-HC) 2.5 % rectal cream, , Rectal, 2 times per day, Loy Dawson MD, Given at 12/10/22 222 hydrOXYzine (ATARAX) tablet 25 mg, 25 mg, Oral, Q6H PRN, Yamileth Frias MD, 25 mg at 12/11/22 213 lidocaine (LIDOCARE) 4 % patch 1 patch, 1 patch, Transdermal, Once a day, Loy Dawson MD, 1 patch at 12/12/22 09 loratadine (CLARITIN) tablet 10 mg, 10 mg, Enteral, Once a day, Nghia Pryor MD, 10 mg at 12/12/22 09 metoprolol tartrate (LOPRESSOR) tablet 25 mg, 25 mg, Enteral, 2 times per day, Nghia Pryor MD, 25 mg at 12/12/22 0903 muscle rub (ICY HOT) 10-15 % cream, , Topical, 3 times per day, Yamileth Frias MD, Given at 12/11/22 213 ondansetron ODT (ZOFRAN-ODT) disintegrating tablet 4 mg, 4 mg, Per Tube, Q6H PRN, Marlee Bradley MD, 4 mg at 12/12/22 0512 oxyCODONE (ROXICODONE) immediate release tablet 5 mg, 5 mg, Enteral, Q4H PRN, Marlee Bradley MD, 5mg at 12/12/22 0913 oxyCODONE (ROXICODONE) immediate release tablet 5 mg, 5 mg, Oral, Daily at 0600, Yamileth Frias MD, 5 mg at 12/12/22 0507 pantoprazole-sodium bicarbonate 2mg/ml oral liquid 40 mg, 40 mg, Per Tube, Daily bef breakfast, Marlee Bradley MD, 40 mg at 12/11/22 0626 polyethylene glycol (MIRALAX) packet 17 g, 17 g, Per Tube, BID PRN, Yamileth Frias MD senna-docusate (SENOKOT-S) 8.6-50 MG tablet 2 tablet, 2 tablet, Enteral, Daily PRN, Yamileth Frias MD simethicone (MYLICON) chewable tablet 80 mg, 80 mg, Per Tube, BID PRN, Marlee Bradley MD, 80 mg at11/28/222051 tamsulosin (FLOMAX) 24 hr capsule 0.4 mg, 0.4 mg, Enteral, After Breakfast, Nghia Pryor MD, 0.4 mg at 12/12/22 09 triamcinolone (KENALOG) 0.1 % ointment, , Apply externally, BID PRN, Nghia Pryor MD, Given at 11/20/222014 verapamil (CALAN) tablet 40 mg, 40 mg, Enteral, Q8H SENDY, Nghia Pryor MD, 40 mg at 12/12/22 0507 Warfarin Per Policy, , Does not apply, Daily, Nghia Pryor MD warfarin tablet 3.5 mg, 3.5 mg, Oral, Daily, Nghia Pryor MD DATA Vitals: 12/11/22 1531 12/11/22 1920 12/12/22 0709 12/12/22 0903 BP: 118/74 116/78 108/70 112/71 Pulse: 63 63 63 Resp: 18 18 Temp: 97.7 ??F (36.5 ??C) 97.9 ??F (36.6 ??C) TempSrc: Oral Oral SpO2: 97% 94% Weight: Height: Weights (last 3 days) Date/Time Weight 12/10/22 0554 192 lb (87.1 kg) @ANTICOAGSUMMARY@ @FLOWDATE(2706:LAST)@ Intake/Output Summary (Last 24 hours) at 12/12/2022 1230 Last data filed at 12/12/2022 0709 Gross per 24 hour Intake 360 ml Output 2450 ml Net -2090 ml PHYSICAL EXAM General appearance: awake, alert, cooperative, no distress HEENT: Normocephalic, No icterus, No oral lesions, Oral and nasal mucosa moist Neck: Supple, no lymphadenopathy Eyes: EOMI, Conjunctiva normal, No discharge Cardiovascular: Normal heart rate, Normal rhythm, No murmurs, No rubs, No gallops Respiratory: Normal breath sounds, No respiratory distress, No wheezing, No rhonchi, No rales, No chest tenderness. GI: Bowel sounds normal, Soft, No tenderness, No rebound or guarding, No masses. Abdomen: soft without mass, non-tender, with normal bowel sounds Extremities: no clubbing, cyanosis or edema, no calf tenderness Musculoskeletal:no swelling of joints.no redness Psychologic: Mood ok, no suicidal ideation. Skin: No rash. 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 LABS CBC with Differential: Lab Results Component Value Date WBC 10.7 12/11/2022 HGB 10.8 (L) 12/11/2022 HCT 33.0 (L) 12/11/2022 PLT 401 12/11/2022 MCV 92.4 12/11/2022 MCH 30.3 12/11/2022 MCHC 32.7 12/11/2022 RDW 15.1 (H) 12/11/2022 [ BMP: Lab Results Component Value Date NA 141 12/11/2022 K 4.2 12/11/2022 CL 110 (H) 12/11/2022 CO2 21 (L) 12/11/2022 BUN 11 12/11/2022 CREATININE 0.66 12/11/2022 GLUCOSE 113 (H) 12/11/2022 CALCIUM 9.0 12/11/2022 ANIONGAP 10 12/11/2022 MG/PHOS: No results found for: MG, PHOS CKMB: No components found for: CKMB;2 PT/INR: Lab Results Component Value Date INR 2.3 (H) 12/12/2022 BNP: No results found for: BNP Last 3 Troponin: No components found for: TROPONINI;3 U/A: No results found for: COLORU, CLARITYU, GLUCOSEU, BILIRUBINUR, KETONESU, SPECGRAV, BLOODU, PHUR, UROBILINOGEN, NITRITE, LEUKOCYTESUR, MUCUS, RBCUA, WBCUA CMP: Lab Results Component Value Date NA 141 12/11/2022 K 4.2 12/11/2022 CL 110 (H) 12/11/2022 CO2 21 (L) 12/11/2022 BUN 11 12/11/2022 CREATININE 0.66 12/11/2022 GLUCOSE 113 (H) 12/11/2022 CALCIUM 9.0 12/11/2022 ANIONGAP 10 12/11/2022 LFT's: No results found for: ALB, PROT Ionized Calcium: No components found for: IONCA ABG: No results found for: PHART, DBI3YET, PO2ART, IDQ8HZB, BEART, W6ZCDSFM HgBA1c: No results found for: HGBA1C Lipid Panel: No results found for: CHOL, TRIG, HDL TSH: No results found for: TSH Lab Results Component Value Date GLUCOSE 113 (H) 12/11/2022 BUN 11 12/11/2022 CREATININE 0.66 12/11/2022 NA 141 12/11/2022 K 4.2 12/11/2022 CL 110 (H) 12/11/2022 CO2 21 (L) 12/11/2022 CALCIUM 9.0 12/11/2022 @RESU CBC: Recent Labs Lab Units 12/11/22 0001 WBC X(10)9/L BLOOD x10E9/L 10.7 HGB GM/DL BLOOD gm/dL 10.8* PLT CT X(10)9/L BLOOD x10E9/L 401 MCV FL BLOOD fl 92.4 BMP: Recent Labs Lab Units 12/11/22 0001 SODIUM MMOL/L BLOOD mmol/L 141 POTASSIUM MMOL/L BLOOD mmol/L 4.2 CHLORIDE mmol/L 110* CO2 mmol/L 21* BUN MG/DL BLOOD mg/dL 11 CREATININE mg/dL 0.66 GLUCOSE MG/DL BLOOD mg/dL 113* CALCIUM MG/DL BLOOD mg/dL 9.0 I reviewed the EKG tracing/Xray Recent Labs Lab Units 12/11/22 0001 SODIUM MMOL/L BLOOD mmol/L 141 POTASSIUM MMOL/L BLOOD mmol/L 4.2 CHLORIDE mmol/L 110* CO2 mmol/L 21* BUN MG/DL BLOOD mg/dL 11 CREATININE mg/dL 0.66 GLUCOSE MG/DL BLOOD mg/dL 113* CALCIUM MG/DL BLOOD mg/dL 9.0 ANION GAP BLOOD mmol/L 10 ASSESSMENT AND PLAN Principal Problem: Cerebrovascular accident Active Problems: Trochanteric bursitis of left hip Acute R MCA CVA Left hemiplegia /p TNK and MT and TICI2b revascularization on 10/19. Developed MCA syndrome s/p hemicrani. 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 - MRI brain w/wo done (11/10): cortical enhancement along the right frontal parietal and temporal regions 2/2 infarct progression but can't rule out cerebritis or infections.LP not concerning, however. -- glenis PEG fluid collection: Improved on abx - Urology replaced puentes (11/09-) TTE showed mobile aortic valve vegetation. IV abxs HTN Continue meds Migraine without aura Pian control GERD PPI Oral contraceptive use DVT Prophylaxis Obesity BMI 36 Nutrition consult Abn LFT Check hep screen Watch with statin D Pain management Today's pain score FEN. Nutrition consult for evaluation of nutritional status and the best diet. And for BMI evaluation and education regarding maintaining a healthy BMI Bladder management Voiding ok Bowel management . Titrate bowel medications for constipation/diarrhea. Skin. Nursing to address skin care throughout stay. Turn every 2 hrs Sleep. Monitor sleep-wake cycle. High Fall risk- Fall precautions GI Prophylaxis: DVT Prophylaxis: Full Resuscitation D/W patient , and attending physician about test results and treatment plan .No family in the room.Patient requiring monitoring of BP and HR while doing 3 hour intensive exercises to avoid fluctuations and hypotension . Aswell as monitoring of nutritional and fluid status , by weights, leg edema .Notified staff and patient to notify me of any change inconditions or new problems Electronically signed by: NGHIA PRYOR MD, at [facility] basically DUI may be GI need a I diving lysis consult subacute S do * Yamileth Frias MD - 12/12/2022 11:16 AM CDT PM&R PROGRESS NOTE This is Face to Face Visit note Consuelo Darby is a 42 y.o. female patient. Doing well, no headaches, dizziness REVIEW OF FUNCTIONAL STATUS SM Functional Status PT Data (since 12/09/2022) None BED MOBILITY: Sit to supine = mod/max A for L LE and trunk; cues for sonya-compensatory techniques, hooking L withR LE, L attention, positioning TRANSFER TRAINING: Transfer board = mod A for force production, balance, and LLE positioning/stability Sit-stand with R sonya-aide = mod A for balance and L knee block, slight L lean; cues for safety, hand placement, and technique; repeated practice SM Functional Status OT Data (since 12/09/2022) None Patient Active Problem List Diagnosis Cerebrovascular accident Hypertension Trochanteric bursitis of left hip Past Medical History: Diagnosis Date Gastroesophageal reflux disease Hypertension Migraine Current Facility-Administered Medications: acetaminophen (TYLENOL) tablet 500 mg, 500 mg, Per Tube, Q6H PRN, Nghia Pryor MD, 500 mg at 12/07/22 1353 baclofen (LIORESAL) tablet 5 mg, 5 mg, Oral, Nightly, Yamileth Frias MD, 5 mg at 12/11/22 213 bethanechol (URECHOLINE) tablet 25 mg, 25 mg, Oral, 3 times per day, Yamileth Frias MD, 25 mg at 12/12/22 09 bisacodyl (DULCOLAX) suppository 10 mg, 10 mg, Rectal, Daily PRN, Yamileth Frias MD, 10 mg at 12/10/22 1255 cefdinir (OMNICEF) capsule 300 mg, 300 mg, Oral, 2 times per day, Nghia Pryor MD, 300 mg at 12/12/22901 cholecalciferol (VITAMIN D3) tablet 2,000 Units, 2,000 Units, Per Tube, Once a day, Nghia Pryor MD, 2,000 Units at 12/12/22902 cyclobenzaprine (FLEXERIL) tablet 5 mg, 5 mg, Oral, 3 times per day, Loy Dawson MD, 5 mg at 12/12/22901 fluconazole (DIFLUCAN) tablet 200 mg, 200 mg, Oral, Once a day, Yamileth Frias MD, 200 mg at 12/12/22901 gabapentin (NEURONTIN) capsule 300 mg, 300 mg, Oral, 3 times per day, Loy Dawson MD, 300 mg at 12/12/22901 guaiFENesin (ROBITUSSIN) 100 MG/5ML liquid 10 mL, 10 mL, Enteral, BID PRN, Nghia Pryor MD hydrocortisone (ANUSOL-HC) 2.5 % rectal cream, , Rectal, 2 times per day, Loy Dawson MD, Given at 12/10/22 222 hydrOXYzine (ATARAX) tablet 25 mg, 25 mg, Oral, Q6H PRN, Yamileth Frias MD, 25 mg at 12/11/22 213 lidocaine (LIDOCARE) 4 % patch 1 patch, 1 patch, Transdermal, Once a day, Loy Dawson MD, 1 patch at 12/12/22 09 loratadine (CLARITIN) tablet 10 mg, 10 mg, Enteral, Once a day, Nghia Pryor MD, 10 mg at 12/12/22 09 metoprolol tartrate (LOPRESSOR) tablet 25 mg, 25 mg, Enteral, 2 times per day, Nghia Pryor MD, 25 mg at 12/12/22 09 muscle rub (ICY HOT) 10-15 % cream, , Topical, 3 times per day, Yamileth Frias MD, Given at 12/11/22 213 ondansetron ODT (ZOFRAN-ODT) disintegrating tablet 4 mg, 4 mg, Per Tube, Q6H PRN, Marlee Bradley MD, 4 mg at 12/12/22 0512 oxyCODONE (ROXICODONE) immediate release tablet 5 mg, 5 mg, Enteral, Q4H PRN, Marlee Bradley MD, 5mg at 12/12/22 0913 oxyCODONE (ROXICODONE) immediate release tablet 5 mg, 5 mg, Oral, Daily at 0600, Yamileth Frias MD, 5 mg at 12/12/22 0507 pantoprazole-sodium bicarbonate 2mg/ml oral liquid 40 mg, 40 mg, Per Tube, Daily bef breakfast, Marlee Bradley MD, 40 mg at 12/11/22 0626 polyethylene glycol (MIRALAX) packet 17 g, 17 g, Per Tube, BID PRN, Yamileth Frias MD senna-docusate (SENOKOT-S) 8.6-50 MG tablet 2 tablet, 2 tablet, Enteral, Daily PRN, Yamileth Frias MD simethicone (MYLICON) chewable tablet 80 mg, 80 mg, Per Tube, BID PRN, Marlee Bradley MD, 80 mg at11/28/222051 tamsulosin (FLOMAX) 24 hr capsule 0.4 mg, 0.4 mg, Enteral, After Breakfast, Nghia Pryor MD, 0.4 mg at 12/12/22902 triamcinolone (KENALOG) 0.1 % ointment, , Apply externally, BID PRN, Nghia Pryor MD, Given at 11/20/222014 verapamil (CALAN) tablet 40 mg, 40 mg, Enteral, Q8H SENDY, Nghia Pryor MD, 40 mg at 12/12/22 0507 Warfarin Per Policy, , Does not apply, Daily, Nghia Pryor MD warfarin tablet 3.5 mg, 3.5 mg, Oral, Daily, Nghia Pryor MD Review of Systems: Review of Systems Constitutional: Negative for appetite change. HENT: Negative for congestion. Respiratory: Negative for shortness of breath. Cardiovascular: Positive for leg swelling. Genitourinary: Negative for flank pain. Musculoskeletal: Negative for arthralgias and joint swelling. Neurological: Negative for headaches. Psychiatric/Behavioral: The patient is nervous/anxious. Physical Exam Vitals: 12/12/22902 BP: 112/71 Pulse: 63 Resp: Temp: SpO2: Physical Exam Constitutional: General: She is not in acute distress. HENT: Head: Atraumatic. Eyes: Conjunctiva/sclera: Conjunctivae normal. Cardiovascular: Rate and Rhythm: Normal rate. Pulmonary: Effort: Pulmonary effort is normal. Abdominal: General: There is no distension. Skin: Findings: No erythema. Neurological: Coordination: Coordination abnormal. Neurologic Exam Lab Data Reviewed current lab results available to me today. Lab Results Component Value Date WBC 10.7 12/11/2022 HGB 10.8 (L) 12/11/2022 HCT 33.0 (L) 12/11/2022 MCV 92.4 12/11/2022 PLT 401 12/11/2022 Lab Results Component Value Date GLUCOSE 113 (H) 12/11/2022 CALCIUM 9.0 12/11/2022 NA 141 12/11/2022 K 4.2 12/11/2022 CO2 21 (L) 12/11/2022 CL 110 (H) 12/11/2022 BUN 11 12/11/2022 CREATININE 0.66 12/11/2022 ANIONGAP 10 12/11/2022 Imaging Reviewed current imaging results available to me today. XR abdomen 1 vws Result Date: 11/19/2022 NARRATIVE: Procedure: XR ABDOMEN KUB Exam Date: 11/19/2022 9:38 AM Location: [facility] Indication: abdominal fullness, reflux. Patient on peg tube feeding FINDINGS/IMPRESSION: Air is seen throughout the colonic structures. No dilated bowel loops are identified. There is no evidence tosuggest obstruction. There is no gross free intraperitoneal air. There does appear to be a gastrostomy tube superimposing the stomach. > Interpreting Provider: Rebel Hernandez MD on 11/19/2022 9:[address] head WO contrast Result Date: 11/19/2022 NARRATIVE: Procedure: CT HEAD WO CONTRAST Exam Date: 11/19/2022 9:31 AM Location: [facility] CT head without IV contrast INDICATION: worsening pain TECHNIQUE: CT examination of the head was performed from the base of the skull through the vertex using multiple axial images without IV contrast. FINDINGS: No old studies are available for comparison purposes. VIZ AI was utilized. Patient is status post right-sided craniectomy. There is extensive encephalomalacia involving the right frontal lobe with with some minimal involvement of the temporal and parietal lobe. There is no acute infarct. There is no mass. There is no hemorrhage. There are no extra-axial fluid collections. There is no midline shift. IMPRESSION: IMPRESSION: Right frontal craniectomy with extensive encephalomalacia involving the right frontal lobe as well as some involvement of the parietal and temporal lobes. > Interpreting Provider: Rebel Hernandez MD on 11/19/2022 9:36 AM Assessment & Plan: Consuelo Darby is a 42 y.o. female patient with Cerebrovascular accident functional impairment for rehab Cerebrovascular accident PT, OT for gait training and ADL training, Nursing for bowel and bladder care. Speech therapy for swallow evaluation and cognitive evaluation. Acute R MCA CVA Left dense hemiplegia LUE / LLE : 0/5 Left face droop Left neglect Spasticity: SENDY Baclofen 5 mg HS and flexeril TID SENDY Oxy before therapy from 12/02 Left hip pain - XR on 08/05 Left GT bursitis: Left gt bursa injected on 12/08 please refer to procedure note for details Muscle rub SENDY s/p TNK and MT and TICI2b revascularization on 10/19. cerebral edema and midline shift s/p hemicraniectomy 10/20/22 Helmet Incision care R iliac and common femoral artery occlusion 10/30: R common femoral thrombectomy and patch angioplasty On Warfarin Dced Lovenox # Dysphagia: On regular diet Tolerating well G tube removed on 12/09 To F/U with Dr. Mcintyre as out patient Dysarthria TTE showed mobile aortic valve vegetation. S /P IV abxs HTN Continue metoprolol , verapamil # headaches: On Tylenol and Oxy PRN Pian control # Neurogenic bladder: puentes placed on 12/04 but put removed on 12/05 Voiding trials today Urology consult Flomax HS Urecholine 25 mg TID from 11/27 Skin/Wounds: - Skin integrity and Pressure ulcer prevention: frequent repositioning and adequate pressure relief. Maintain clean, dry skin. If needed, q2 hour turns when in bed and regular skin checks, application of protective barrier cream, toileting schedule. Wound RN consult Bowel & Bladder - monitor bowel movement - adjust scheduled and PRN bowel regimen as needed - monitor for adequate urinary output - should suspicion for urinary retention arise, PVR of random bladder scan will be performed for further assessment Continue current medical management. RECOMMENDATIONS At the current time, this inpatient hospital rehabilitation stay is medically necessary to achieve important health and functional goals. The patient requires frequent physician visits, 24-hour rehabilitation nursing, and a coordinated intensive rehabilitation program as described above to address complex medical, nursing, and rehabilitation needs. Continue inpatient comprehensive interdisciplinary rehabilitation to address strengthening, mobility skills, self care, cognitive functioning, speech, communication and swallowing needs. The patient continues to require the interdisciplinary team approach and 24 hour monitoring. DIET: Dietary Orders (From admission, onward) Start Ordered 12/08/22 1156 Adult Diet Regular; 7 Regular (Regular Texture); 0 Thin (All Liquids) Diet effective now End/Expires: Until Specified References: [employer] Website Question Answer Comment Diet Type: Regular Diet Texture: 7 Regular (Regular Texture) Liquid Consistency: 0 Thin (All Liquids) Place order in third green party system. Done 12/08/22 1155 11/29/22 1700 Nutritional supplement Magic Cup; Oral 3 times daily with meals Comments: Send chocolate Thrive TID End/Expires: Until Specified Question Answer Comment Select Supplement: Magic Cup Administration Route: Oral Place order in third green party system. Done 11/29/22 1250 Patient Active Problem List Diagnosis Cerebrovascular accident Hypertension Trochanteric bursitis of left hip # Vision deficits: Hand Rigger following # Vaginal yeast: On diflucan On omnicef for UTI per IM Face to face for wheel chair / DME 12/12/2022 Hospital Bed Justification Patient's medical condition requires the patient to be elevated >30%,Patient requires frequent positioning unable to be performed in an ordinary bed, Semi Electric Bed - patient requires frequent changes in body position Manual Lift Justification Patient requires the use of the lift between bed, chair, wheelchair, and/or commode, Patient requires the use of a lift between bed and chair, w/c, or commode. Without the lift, the patient would be bed confined [use of the lift at times for stance/balance with toileting and transfers when pt fatigued. allows varied caregiver assist in the home] Low Air loss mattress justification significant immobility with left side, high risk of pressure injuries, requires assist for position changes. Drop Arm Bedside commode justification: The patient requires commode due to confirmed to a single room and detachable arm feature is necessary to facilitate transferring patient. Team Conference: 12/12/2022 Please refer to team conference note from today for details Case discussed with social welfare administrator/ PT/OT/nursing . 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 BP, BS , HR, labs, strength. .Chief Complaint CT head ok Headache much better Got upto chair without helmet =did ok Working on better helmet Consider spinal headache if recurs- d/w dr Villagran strength improving, able to do therapy ok. No chest pain, no SOB, no dizziness, no palpitations, no new neurologic symptoms. No cough, No nausea or vomiting, No abdominal pain. History also obtained from Nurse and staff about how the patient did overnight and during the day strength improving, able to do therapy ok. 11/20 Patient seen an examined Doing alright No new issues to report Vitals reviewed 11/21 Patient seen and examined earlier No new issues to report Vitals reviewed Resting comfortably 11/22 Patient seen and examined Doing alright at this time Resting comfortably Vitals reviewed 11/23 The patient was seen in the room this afternoon. The patient currently does not report any chest pain, shortness present nausea or vomiting No reported issues from the floor nurse. The most recent labs and vital signs were reviewed. 11/24: Patient seen and examined this morning. Patient complaining of bilateral hip pain. Have placed order for Flexeril and lidocaine patch. No acute events reported overnight. Blood work and vital signs remained stable. Continue current medical management. 11/25: Patient seen and examined this morning. Patient continues to complain of bilateral hip pain. Continue lidocaine patches. Have scheduled Flexeril 5 mg t.i.d.. Continue current medical management. 11/26: Patient seen and examined this morning. Patient continues to complain of hip pain. Follow up left hip x-ray. Follow up with PM&R for further recommendations. Continue Lovenox. Have discussed Coumadin dosing with pharmacy. Goal to have INR from 2-3. No acute events reported overnight. Continue current medical management. 11/27:Patient seen and examined this morning. Vitals and labs reviewed. Resting comfortably. No acute events overnight. Continue current medical management. 11/30 Patient seen and examined Doing ok. No new issues to report 12/01 Patient seen and examined earlier this afternoon. Things are going well. No new issues to report. 12/02:Patient seen and examined this morning. Vitals and labs reviewed. Resting comfortably. No acute events overnight. Continue current medical management. 12/03: Patient seen and examined this morning. Patient complaining of sharp shooting pain around herleft hip area. Have started gabapentin 300 mg t.i.d.. Vital signs and blood work reviewed. INR at goal. Continue current medical management. 12/04 Patient seen and examined. Doing ok at this time. No new issues to report. Vitals reviewed. 12/05 Patient seen and examined earlier today. Doing alright. No new issues to report. Vitals reviewed. Having pain in hip. Discussed with dr. Frias 12/06 Patient seen and examined. Doing alright currently. No new issues to report. Vitals reviewed. 12/07 Patient seen and examined today. Doing alright. No new issues to report. Vitals reviewed. 12/08 Patient seen and examined. Doing alright. No new issues. 12/09 Patient seen and examined today. Doing well. Says she had steroid injection yesterday. Feels about the same. 12/10 Patient seen and evaluated on daily rounds. No overnight events reported by staff. patient slept ok last night. Appetite and PO ok.Patent participating with therapy and cares. Denies any complaints VS ok C/o constipation Lactulose 12/11 Patient seen and examined. Doing alright No new issues to report. Vitals reviewed BRIEF HISTORY The patient is a 42 y.o. y/o female with history of HTN, GERD, presented tO ED with new left sided weakness and slurred speech Diagnosed with acute CVA s/p TNK and m1 occlusion S/P MT . c/b R iliac and common femoral artery occlusion s/p thrombectomy. Developed Fever: consulted ID, shanna abx, Cxs. - MRI brain w/wo done (11/10): cortical enhancement along the right frontal parietal and temporal regions 2/2 infarct progression but can't rule out cerebritis or infections.however LP neg. Also had glenis PEG fluid collection: Improved on abx - Urology replaced puentes (11/09-) Extubated, now on RA HOME Medications Prior to Admission medications Medication Sig Start Date End Date Taking? Authorizing Provider cetirizine (ZyrTEC) 10 MG tablet Take 1 tablet (10 mg total) by mouth in the morning. Yes Historical Provider, omeprazole (PriLOSEC) 20 MG capsule Take 1 capsule (20 mg total) by mouth in the morning. Yes Historical Provider, amitriptyline (ELAVIL) 50 MG tablet 2 tablets (100 mg total) nightly. Historical Provider, CURRENT Medications Current Facility-Administered Medications: acetaminophen (TYLENOL) tablet 500 mg, 500 mg, Per Tube, Q6H PRN, Nghia Pryor MD, 500 mg at 12/07/22 1353 baclofen (LIORESAL) tablet 5 mg, 5 mg, Oral, Nightly, Yamileth Frisa MD, 5 mg at 12/10/22 2228 bethanechol (URECHOLINE) tablet 25 mg, 25 mg, Oral, 3 times per day, Yamileth Frias MD, 25 mg at 12/11/22 0815 bisacodyl (DULCOLAX) suppository 10 mg, 10 mg, Rectal, Daily PRN, Yamileth Frias MD, 10 mg at 12/10/22 1255 cefdinir (OMNICEF) capsule 300 mg, 300 mg, Oral, 2 times per day, Nghia Pryor MD, 300 mg at 12/11/22 08 cholecalciferol (VITAMIN D3) tablet 2,000 Units, 2,000 Units, Per Tube, Once a day, Nghia Pryor MD, 2,000 Units at 12/11/22 0815 cyclobenzaprine (FLEXERIL) tablet 5 mg, 5 mg, Oral, 3 times per day, Loy Dawson MD, 5 mg at 12/11/22814 [START ON 12/12/2022] fluconazole (DIFLUCAN) tablet 200 mg, 200 mg, Oral, Once a day, Yamileth Frias MD gabapentin (NEURONTIN) capsule 300 mg, 300 mg, Oral, 3 times per day, Loy Dawson MD, 300 mg at 12/11/22 08 guaiFENesin (ROBITUSSIN) 100 MG/5ML liquid 10 mL, 10 mL, Enteral, BID PRN, Nghia Pryor MD hydrocortisone (ANUSOL-HC) 2.5 % rectal cream, , Rectal, 2 times per day, Loy Dawson MD, Given at 12/10/22 222 hydrOXYzine (ATARAX) tablet 25 mg, 25 mg, Oral, Q6H PRN, Yamileth Frias MD, 25 mg at 12/10/22 2315 lidocaine (LIDOCARE) 4 % patch 1 patch, 1 patch, Transdermal, Once a day, Loy Dawson MD, 1 patch at 12/09/22 0836 loratadine (CLARITIN) tablet 10 mg, 10 mg, Enteral, Once a day, Nghia Pryor MD, 10 mg at 12/11/22 0815 metoprolol tartrate (LOPRESSOR) tablet 25 mg, 25 mg, Enteral, 2 times per day, Nghia Pryor MD, 25 mg at 12/11/22 0815 muscle rub (ICY HOT) 10-15 % cream, , Topical, 3 times per day, Yamileth Frias MD, Given at 12/11/22 0956 ondansetron ODT (ZOFRAN-ODT) disintegrating tablet 4 mg, 4 mg, Per Tube, Q6H PRN, Marlee Bradley MD, 4 mg at 12/10/222315 oxyCODONE (ROXICODONE) immediate release tablet 5 mg, 5 mg, Enteral, Q4H PRN, Marlee Bradley MD, 5mg at 12/10/22 231 oxyCODONE (ROXICODONE) immediate release tablet 5 mg, 5 mg, Oral, Daily at 0600, Yamileth Frias MD, 5 mg at 12/11/22 0625 pantoprazole-sodium bicarbonate 2mg/ml oral liquid 40 mg, 40 mg, Per Tube, Daily bef breakfast, Marlee Bradley MD, 40 mg at 12/11/22 06 polyethylene glycol (MIRALAX) packet 17 g, 17 g, Per Tube, BID PRN, Yamileth Frias MD senna-docusate (SENOKOT-S) 8.6-50 MG tablet 2 tablet, 2 tablet, Enteral, Daily PRN, Yamileth Frias MD simethicone (MYLICON) chewable tablet 80 mg, 80 mg, Per Tube, BID PRN, Marlee Bradley MD, 80 mg at11/28/222051 tamsulosin (FLOMAX) 24 hr capsule 0.4 mg, 0.4 mg, Enteral, After Breakfast, Nghia Pryor MD, 0.4 mg at 12/11/22 0815 triamcinolone (KENALOG) 0.1 % ointment, , Apply externally, BID PRN, Nghia Pryor MD, Given at 11/20/222014 verapamil (CALAN) tablet 40 mg, 40 mg, Enteral, Q8H SENDY, Nghia Pryor MD, 40 mg at 12/11/22 0626 Warfarin Per Policy, , Does not apply, Daily, Nghia Pryor MD warfarin tablet 4 mg, 4 mg, Oral, Daily, Nghia Pryor MD DATA Vitals: 12/10/22 1930 12/10/22 2307 12/11/22 0620 12/11/22 0720 BP: 122/76 128/75 126/77 106/68 Pulse: 72 77 74 71 Resp: 16 16 Temp: 98.2 ??F (36.8 ??C) 98.1 ??F (36.7 ??C) TempSrc: Oral Oral SpO2: 95% 94% 95% Weight: Height: Weights (last 3 days) Date/Time Weight Height BSA (Calculated - sq m) 12/10/22 0554 192 lb (87.1 kg) -- -- 12/08/22 0400 191 lb (86.6 kg) 5' 4 (1.626 m) 1.98 sq meters @ANTICOAGSUMMARY@ @FLOWDATE(2706:LAST)@ Intake/Output Summary (Last 24 hours) at 12/11/2022 1240 Last data filed at 12/11/2022 0720 Gross per 24 hour Intake 360 ml Output 2410 ml Net -2050 ml PHYSICAL EXAM General appearance: awake, alert, cooperative, no distress HEENT: Normocephalic, No icterus, No oral lesions, Oral and nasal mucosa moist Neck: Supple, no lymphadenopathy Eyes: EOMI, Conjunctiva normal, No discharge Cardiovascular: Normal heart rate, Normal rhythm, No murmurs, No rubs, No gallops Respiratory: Normal breath sounds, No respiratory distress, No wheezing, No rhonchi, No rales, No chest tenderness. GI: Bowel sounds normal, Soft, No tenderness, No rebound or guarding, No masses. Abdomen: soft without mass, non-tender, with normal bowel sounds Extremities: no clubbing, cyanosis or edema, no calf tenderness Musculoskeletal:no swelling of joints.no redness Psychologic: Mood ok, no suicidal ideation. Skin: No rash. 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 LABS CBC with Differential: Lab Results Component Value Date WBC 10.7 12/11/2022 HGB 10.8 (L) 12/11/2022 HCT 33.0 (L) 12/11/2022 PLT 401 12/11/2022 MCV 92.4 12/11/2022 MCH 30.3 12/11/2022 MCHC 32.7 12/11/2022 RDW 15.1 (H) 12/11/2022 [ BMP: Lab Results Component Value Date NA 141 12/11/2022 K 4.2 12/11/2022 CL 110 (H) 12/11/2022 CO2 21 (L) 12/11/2022 BUN 11 12/11/2022 CREATININE 0.66 12/11/2022 GLUCOSE 113 (H) 12/11/2022 CALCIUM 9.0 12/11/2022 ANIONGAP 10 12/11/2022 MG/PHOS: No results found for: MG, PHOS CKMB: No components found for: CKMB;2 PT/INR: Lab Results Component Value Date INR 2.3 (H) 12/11/2022 BNP: No results found for: BNP Last 3 Troponin: No components found for: TROPONINI;3 U/A: No results found for: COLORU, CLARITYU, GLUCOSEU, BILIRUBINUR, KETONESU, SPECGRAV, BLOODU, PHUR, UROBILINOGEN, NITRITE, LEUKOCYTESUR, MUCUS, RBCUA, WBCUA CMP: Lab Results Component Value Date NA 141 12/11/2022 K 4.2 12/11/2022 CL 110 (H) 12/11/2022 CO2 21 (L) 12/11/2022 BUN 11 12/11/2022 CREATININE 0.66 12/11/2022 GLUCOSE 113 (H) 12/11/2022 CALCIUM 9.0 12/11/2022 ANIONGAP 10 12/11/2022 LFT's: No results found for: ALB, PROT Ionized Calcium: No components found for: IONCA ABG: No results found for: PHART, [id number], PO2ART, GGH6LML, BEART, [id number] HgBA1c: No results found for: HGBA1C Lipid Panel: No results found for: CHOL, TRIG, HDL TSH: No results found for: TSH Lab Results Component Value Date GLUCOSE 113 (H) 12/11/2022 BUN 11 12/11/2022 CREATININE 0.66 12/11/2022 NA 141 12/11/2022 K 4.2 12/11/2022 CL 110 (H) 12/11/2022 CO2 21 (L) 12/11/2022 CALCIUM 9.0 12/11/2022 @RESU CBC: Recent Labs Lab Units 12/11/22 0001 WBC X(10)9/L BLOOD x10E9/L 10.7 HGB GM/DL BLOOD gm/dL 10.8* PLT CT X(10)9/L BLOOD x10E9/L 401 MCV FL BLOOD fl 92.4 BMP: Recent Labs Lab Units 12/11/22 0001 SODIUM MMOL/L BLOOD mmol/L 141 POTASSIUM MMOL/L BLOOD mmol/L 4.2 CHLORIDE mmol/L 110* CO2 mmol/L 21* BUN MG/DL BLOOD mg/dL 11 CREATININE mg/dL 0.66 GLUCOSE MG/DL BLOOD mg/dL 113* CALCIUM MG/DL BLOOD mg/dL 9.0 I reviewed the EKG tracing/Xray Recent Labs Lab Units 12/11/22 0001 SODIUM MMOL/L BLOOD mmol/L 141 POTASSIUM MMOL/L BLOOD mmol/L 4.2 CHLORIDE mmol/L 110* CO2 mmol/L 21* BUN MG/DL BLOOD mg/dL 11 CREATININE mg/dL 0.66 GLUCOSE MG/DL BLOOD mg/dL 113* CALCIUM MG/DL BLOOD mg/dL 9.0 ANION GAP BLOOD mmol/L 10 ASSESSMENT AND PLAN Principal Problem: Cerebrovascular accident Active Problems: Trochanteric bursitis of left hip Acute R MCA CVA Left hemiplegia /p TNK and MT and TICI2b revascularization on 10/19. Developed MCA syndrome s/p hemicrani. 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 - MRI brain w/wo done (11/10): cortical enhancement along the right frontal parietal and temporal regions 2/2 infarct progression but can't rule out cerebritis or infections.LP not concerning, however. -- glenis PEG fluid collection: Improved on abx - Urology replaced puentes (11/09-) TTE showed mobile aortic valve vegetation. IV abxs HTN Continue meds Migraine without aura Pian control GERD PPI Oral contraceptive use DVT Prophylaxis Obesity BMI 36 Nutrition consult Abn LFT Check hep screen Watch with statin D Pain management Today's pain score FEN. Nutrition consult for evaluation of nutritional status and the best diet. And for BMI evaluation and education regarding maintaining a healthy BMI Bladder management Voiding ok Bowel management . Titrate bowel medications for constipation/diarrhea. Skin. Nursing to address skin care throughout stay. Turn every 2 hrs Sleep. Monitor sleep-wake cycle. High Fall risk- Fall precautions GI Prophylaxis: DVT Prophylaxis: Full Resuscitation D/W patient , and attending physician about test results and treatment plan .No family in the room.Patient requiring monitoring of BP and HR while doing 3 hour intensive exercises to avoid fluctuations and hypotension . Aswell as monitoring of nutritional and fluid status , by weights, leg edema .Notified staff and patient to notify me of any change inconditions or new problems Electronically signed by: NGHIA PRYOR MD, at [email or web address] basically DUI may be GI need a I diving lysis consult subacute S do * Yamileth Frias MD - 12/11/2022 9:19 AM CDT PM&R PROGRESS NOTE This is Face to Face Visit note Consuelo Darby is a 42 y.o. female patient. Pleasant this morning , pain well controlled Benefit from continued therapy REVIEW OF FUNCTIONAL STATUS SM Functional Status PT Data (since 12/08/2022) Value Time User Bed Mobility Comment Supine to sit = max A for trunk and L hemibody; cues for sonya-compensatory technique, sequencing, L sonya-body attention 12/08/2022 10:58 AM Tia Felix, PT Gait Analysis 10' x1, 25' x1, 30' x2, and 40' x1 with R sonya-aide and max A x1 for balance and LLE management; 2nd person required for cane management on first walk only, then pt progressed to being able to advance cane appropriately without assist - only required verbal cues; additional person for w/c follow for safety on each walk; L sling for glenohumeral support, L francisco wrap for DF; notable initiation/trace movement of L hip flexion on swing at times; improved with cues and practice, though not consistent; assist to fully advance L swing and total assist to stabilize L knee from buckling required; Deviations include sonya-paretic gait pattern, decreased wt shift R with lean L, L LE assist/stabilization as noted, L neglect, flexed posture, R head rotation 12/08/2022 12:04 PM Tia Felix PT WC Analysis 95' including turns with mod/max A for steering, L attention; increased time and cues required 12/08/2022 12:04 PM Tia Felix PT Functional Status OT Data (since 12/08/2022) None Functional Status [employer] Data (since 12/08/2022) Value Time User Dysphagia Treatment Swallow strategy training; Dysphagia diet training; Therapeutic trials 12/08/2022 12:[address] [facility] Compensatory Swallow Techniques Small bites; Small sips; Eat slowly-control rate; Oral care post PO intake; Seated upright with all PO intake 12/08/2022 12:[address] Narrative 1. Patient was seen for therapy in her room, seated in tilt in space wheelchair; alert and cooperative with all tasks. Friend was present in the room. 2. Patient was observed with a trial lunch tray consisting of REGULAR texture solids (black islas burger on a bun, [place] fries, brownie) and THIN LIQUIDS. Patient ate at a slow rate and took small bites and sips. She reported that the meat was dry and the fries were overcooked. Mild impairment noted with management of food on the left side of the oral cavity with a small amount of spillage. Patient was aware of food remaining in the left cheek and was able to manage with extra time and with a liquid wash. Patient ate only a couple of bites of the burger and then continued with her modified consistency tray (pasta and diced carrots). [employer] discussed appropriate food choices to order on a regular texture diet. Patient verbalized understanding. Recommend diet be upgraded to REGULAR texture at this time. [employer] to continue to monitor for tolerance and safety. 3. Patient remained in her room with call light and phone left within reach. Chair alarm activated. Friend present in the room. 12/08/2022 12:[address] [facility] Patient Active Problem List Diagnosis Cerebrovascular accident Hypertension Trochanteric bursitis of left hip Past Medical History: Diagnosis Date Gastroesophageal reflux disease Hypertension Migraine Current Facility-Administered Medications: acetaminophen (TYLENOL) tablet 500 mg, 500 mg, Per Tube, Q6H PRN, Nghia Pryor MD, 500 mg at 12/07/22 1353 baclofen (LIORESAL) tablet 5 mg, 5 mg, Oral, Nightly, Yamileth Frias MD, 5 mg at 12/10/22 2228 bethanechol (URECHOLINE) tablet 25 mg, 25 mg, Oral, 3 times per day, Yamileth Frias MD, 25 mg at 12/11/22 0815 bisacodyl (DULCOLAX) suppository 10 mg, 10 mg, Rectal, Daily PRN, Yamileth Frias MD, 10 mg at 12/10/22 1255 cefdinir (OMNICEF) capsule 300 mg, 300 mg, Oral, 2 times per day, Nghia Pryor MD, 300 mg at 12/11/22 0815 cholecalciferol (VITAMIN D3) tablet 2,000 Units, 2,000 Units, Per Tube, Once a day, Nghia Pryor MD, 2,000 Units at 12/11/22 0815 cyclobenzaprine (FLEXERIL) tablet 5 mg, 5 mg, Oral, 3 times per day, Loy Dawson MD, 5 mg at 12/11/22 0815 gabapentin (NEURONTIN) capsule 300 mg, 300 mg, Oral, 3 times per day, Loy Dawson MD, 300 mg at 12/11/22 0815 guaiFENesin (ROBITUSSIN) 100 MG/5ML liquid 10 mL, 10 mL, Enteral, BID PRN, Nghia Pryor MD hydrocortisone (ANUSOL-HC) 2.5 % rectal cream, , Rectal, 2 times per day, Loy Dawson MD, Given at 12/10/22 222 hydrOXYzine (ATARAX) tablet 25 mg, 25 mg, Oral, Q6H PRN, Yamileth Frias MD, 25 mg at 12/10/22 2315 lidocaine (LIDOCARE) 4 % patch 1 patch, 1 patch, Transdermal, Once a day, Loy Dawson MD, 1 patch at 12/09/22 0836 loratadine (CLARITIN) tablet 10 mg, 10 mg, Enteral, Once a day, Nghia Pryor MD, 10 mg at 12/11/22 0815 metoprolol tartrate (LOPRESSOR) tablet 25 mg, 25 mg, Enteral, 2 times per day, Nghia Pryor MD, 25 mg at 12/11/22 0815 muscle rub (ICY HOT) 10-15 % cream, , Topical, 3 times per day, Yamileth Frias MD, Given at 12/10/22 0936 ondansetron ODT (ZOFRAN-ODT) disintegrating tablet 4 mg, 4 mg, Per Tube, Q6H PRN, Marlee Bradley MD, 4 mg at 12/10/222315 oxyCODONE (ROXICODONE) immediate release tablet 5 mg, 5 mg, Enteral, Q4H PRN, Marlee Bradley MD, 5mg at 12/10/22 231 oxyCODONE (ROXICODONE) immediate release tablet 5 mg, 5 mg, Oral, Daily at 0600, Yamileth Frias MD, 5 mg at 12/11/22 0625 pantoprazole-sodium bicarbonate 2mg/ml oral liquid 40 mg, 40 mg, Per Tube, Daily bef breakfast, Marlee Bradley MD, 40 mg at 12/11/22 06 polyethylene glycol (MIRALAX) packet 17 g, 17 g, Per Tube, BID PRN, Yamileth Frias MD senna-docusate (SENOKOT-S) 8.6-50 MG tablet 2 tablet, 2 tablet, Enteral, Daily PRN, Yamileth Frias MD simethicone (MYLICON) chewable tablet 80 mg, 80 mg, Per Tube, BID PRN, Marlee Bradley MD, 80 mg at11/28/222051 tamsulosin (FLOMAX) 24 hr capsule 0.4 mg, 0.4 mg, Enteral, After Breakfast, Nghia Pryor MD, 0.4 mg at 12/11/22 08 triamcinolone (KENALOG) 0.1 % ointment, , Apply externally, BID PRN, Nghia Pryor MD, Given at 11/20/222014 verapamil (CALAN) tablet 40 mg, 40 mg, Enteral, Q8H SENDY, Nghia Pryor MD, 40 mg at 12/11/22 06 Warfarin Per Policy, , Does not apply, Daily, Nghia Pryor MD warfarin tablet 4 mg, 4 mg, Oral, Daily, Nghia Pryor MD Review of Systems: Review of Systems Constitutional: Negative for appetite change. HENT: Negative for congestion. Respiratory: Negative for shortness of breath. Cardiovascular: Positive for leg swelling. Genitourinary: Negative for flank pain. Musculoskeletal: Negative for arthralgias and joint swelling. Neurological: Negative for headaches. Psychiatric/Behavioral: The patient is nervous/anxious. Physical Exam Vitals: 12/11/22 0720 BP: 106/68 Pulse: 71 Resp: 16 Temp: 98.1 ??F (36.7 ??C) SpO2: 95% Physical Exam Constitutional: General: She is not in acute distress. HENT: Head: Atraumatic. Eyes: Conjunctiva/sclera: Conjunctivae normal. Cardiovascular: Rate and Rhythm: Normal rate. Pulmonary: Effort: Pulmonary effort is normal. Abdominal: General: There is no distension. Skin: Findings: No erythema. Neurological: Coordination: Coordination abnormal. Neurologic Exam Lab Data Reviewed current lab results available to me today. Lab Results Component Value Date WBC 10.7 12/11/2022 HGB 10.8 (L) 12/11/2022 HCT 33.0 (L) 12/11/2022 MCV 92.4 12/11/2022 PLT 401 12/11/2022 Lab Results Component Value Date GLUCOSE 113 (H) 12/11/2022 CALCIUM 9.0 12/11/2022 NA 141 12/11/2022 K 4.2 12/11/2022 CO2 21 (L) 12/11/2022 CL 110 (H) 12/11/2022 BUN 11 12/11/2022 CREATININE 0.66 12/11/2022 ANIONGAP 10 12/11/2022 Imaging Reviewed current imaging results available to me today. XR abdomen 1 vws Result Date: 11/19/2022 NARRATIVE: Procedure: XR ABDOMEN KUB Exam Date: 11/19/2022 9:38 AM Location: [facility] Indication: abdominal fullness, reflux. Patient on peg tube feeding FINDINGS/IMPRESSION: Air is seen throughout the colonic structures. No dilated bowel loops are identified. There is no evidence tosuggest obstruction. There is no gross free intraperitoneal air. There does appear to be a gastrostomy tube superimposing the stomach. > Interpreting Provider: Rebel Hernandez MD on 11/19/2022 9:[address] head WO contrast Result Date: 11/19/2022 NARRATIVE: Procedure: CT HEAD WO CONTRAST Exam Date: 11/19/2022 9:31 AM Location: [facility] CT head without IV contrast INDICATION: worsening pain TECHNIQUE: CT examination of the head was performed from the base of the skull through the vertex using multiple axial images without IV contrast. FINDINGS: No old studies are available for comparison purposes. VIZ AI was utilized. Patient is status post right-sided craniectomy. There is extensive encephalomalacia involving the right frontal lobe with with some minimal involvement of the temporal and parietal lobe. There is no acute infarct. There is no mass. There is no hemorrhage. There are no extra-axial fluid collections. There is no midline shift. IMPRESSION: IMPRESSION: Right frontal craniectomy with extensive encephalomalacia involving the right frontal lobe as well as some involvement of the parietal and temporal lobes. > Interpreting Provider: Rebel Hernandez MD on 11/19/2022 9:36 AM Assessment & Plan: Consuelo Darby is a 42 y.o. female patient with Cerebrovascular accident functional impairment for rehab Cerebrovascular accident PT, OT for gait training and ADL training, Nursing for bowel and bladder care. Speech therapy for swallow evaluation and cognitive evaluation. Acute R MCA CVA Left dense hemiplegia LUE / LLE : 0/5 Left face droop Left neglect Spasticity: SENDY Baclofen 5 mg HS and flexeril TID SENDY Oxy before therapy from 12/02 Left hip pain - XR on 08/05 Left GT bursitis: Left gt bursa injected on 12/08 please refer to procedure note for details Muscle rub SENDY s/p TNK and MT and TICI2b revascularization on 10/19. cerebral edema and midline shift s/p hemicraniectomy 10/20/22 Helmet Incision care R iliac and common femoral artery occlusion 10/30: R common femoral thrombectomy and patch angioplasty On Warfarin Dced Lovenox # Dysphagia: diet upgraded from Tolerating well G tube removed on 12/09 Dysarthria TTE showed mobile aortic valve vegetation. S /P IV abxs HTN Continue metoprolol , verapamil # headaches: On Tylenol and Oxy PRN Pian control # Neurogenic bladder: puentes placed on 12/04 but put removed on 12/05 Voiding trials today Urology consult Flomax HS Urecholine 25 mg TID from 11/27 Skin/Wounds: - Skin integrity and Pressure ulcer prevention: frequent repositioning and adequate pressure relief. Maintain clean, dry skin. If needed, q2 hour turns when in bed and regular skin checks, application of protective barrier cream, toileting schedule. Wound RN consult Bowel & Bladder - monitor bowel movement - adjust scheduled and PRN bowel regimen as needed - monitor for adequate urinary output - should suspicion for urinary retention arise, PVR of random bladder scan will be performed for further assessment Continue current medical management. RECOMMENDATIONS At the current time, this inpatient hospital rehabilitation stay is medically necessary to achieve important health and functional goals. The patient requires frequent physician visits, 24-hour rehabilitation nursing, and a coordinated intensive rehabilitation program as described above to address complex medical, nursing, and rehabilitation needs. Continue inpatient comprehensive interdisciplinary rehabilitation to address strengthening, mobility skills, self care, cognitive functioning, speech, communication and swallowing needs. The patient continues to require the interdisciplinary team approach and 24 hour monitoring. DIET: Dietary Orders (From admission, onward) Start Ordered 12/08/22 1156 Adult Diet Regular; 7 Regular (Regular Texture); 0 Thin (All Liquids) Diet effective now End/Expires: Until Specified References: [facility] Website Question Answer Comment Diet Type: Regular Diet Texture: 7 Regular (Regular Texture) Liquid Consistency: 0 Thin (All Liquids) Place order in third green party system. Done 12/08/22 1155 11/29/22 1700 Nutritional supplement Magic Cup; Oral 3 times daily with meals Comments: Send chocolate Thrive TID End/Expires: Until Specified Question Answer Comment Select Supplement: Magic Cup Administration Route: Oral Place order in third green party system. Done 11/29/22 1250 Patient Active Problem List Diagnosis Cerebrovascular accident Hypertension Trochanteric bursitis of left hip # Vision deficits: Hand Rigger following # Vaginal yeast: On diflucan On omnicef for UTI per IM Face to face for wheel chair / DME 12/11/2022 Hospital Bed Justification Patient's medical condition requires the patient to be elevated >30%,Patient requires frequent positioning unable to be performed in an ordinary bed, Semi Electric Bed - patient requires frequent changes in body position Manual Lift Justification Patient requires the use of the lift between bed, chair, wheelchair, and/or commode, Patient requires the use of a lift between bed and chair, w/c, or commode. Without the lift, the patient would be bed confined [use of the lift at times for stance/balance with toileting and transfers when pt fatigued. allows varied caregiver assist in the home] Low Air loss mattress justification significant immobility with left side, high risk of pressure injuries, requires assist for position changes. Drop Arm Bedside commode justification: The patient requires commode due to confirmed to a single room and detachable arm feature is necessary to facilitate transferring patient. CHIN: DI YAMILETH FRIAS MD * Marlee Bradley MD - 12/10/2022 7:47 PM CDT HOSPITALIST PROGRESS NOTE Patient Name: Consuelo Darby : 1980 Medical Record: [id number] ATTENDING Yamileth Frias MD SUBJECTIVE 11/19 The patient is being seen for follow-up of Cerebrovascular accident. BP, BS , HR, labs, strength. .Chief Complaint CT head ok Headache much better Got upto chair without helmet =did ok Working on better helmet Consider spinal headache if recurs- d/w dr Villagran strength improving, able to do therapy ok. No chest pain, no SOB, no dizziness, no palpitations, no new neurologic symptoms. No cough, No nausea or vomiting, No abdominal pain. History also obtained from Nurse and staff about how the patient did overnight and during the day strength improving, able to do therapy ok. 11/20 Patient seen an examined Doing alright No new issues to report Vitals reviewed 11/21 Patient seen and examined earlier No new issues to report Vitals reviewed Resting comfortably 11/22 Patient seen and examined Doing alright at this time Resting comfortably Vitals reviewed 11/23 The patient was seen in the room this afternoon. The patient currently does not report any chest pain, shortness present nausea or vomiting No reported issues from the floor nurse. The most recent labs and vital signs were reviewed. 11/24: Patient seen and examined this morning. Patient complaining of bilateral hip pain. Have placed order for Flexeril and lidocaine patch. No acute events reported overnight. Blood work and vital signs remained stable. Continue current medical management. 11/25: Patient seen and examined this morning. Patient continues to complain of bilateral hip pain. Continue lidocaine patches. Have scheduled Flexeril 5 mg t.i.d.. Continue current medical management. 11/26: Patient seen and examined this morning. Patient continues to complain of hip pain. Follow up left hip x-ray. Follow up with PM&R for further recommendations. Continue Lovenox. Have discussed Coumadin dosing with pharmacy. Goal to have INR from 2-3. No acute events reported overnight. Continue current medical management. 11/27:Patient seen and examined this morning. Vitals and labs reviewed. Resting comfortably. No acute events overnight. Continue current medical management. 11/30 Patient seen and examined Doing ok. No new issues to report 12/01 Patient seen and examined earlier this afternoon. Things are going well. No new issues to report. 12/02:Patient seen and examined this morning. Vitals and labs reviewed. Resting comfortably. No acute events overnight. Continue current medical management. 12/03: Patient seen and examined this morning. Patient complaining of sharp shooting pain around herleft hip area. Have started gabapentin 300 mg t.i.d.. Vital signs and blood work reviewed. INR at goal. Continue current medical management. 12/04 Patient seen and examined. Doing ok at this time. No new issues to report. Vitals reviewed. 12/05 Patient seen and examined earlier today. Doing alright. No new issues to report. Vitals reviewed. Having pain in hip. Discussed with dr. Frias 12/06 Patient seen and examined. Doing alright currently. No new issues to report. Vitals reviewed. 12/07 Patient seen and examined today. Doing alright. No new issues to report. Vitals reviewed. 12/08 Patient seen and examined. Doing alright. No new issues. 12/09 Patient seen and examined today. Doing well. Says she had steroid injection yesterday. Feels about the same. 12/10 Patient seen and evaluated on daily rounds. No overnight events reported by staff. patient slept ok last night. Appetite and PO ok.Patent participating with therapy and cares. Denies any complaints VS ok C/o constipation lactulose BRIEF HISTORY The patient is a 42 y.o. y/o female with history of HTN, GERD, presented tO ED with new left sided weakness and slurred speech Diagnosed with acute CVA s/p TNK and m1 occlusion S/P MT . c/b R iliac and common femoral artery occlusion s/p thrombectomy. Developed Fever: consulted ID, broaden abx, Cxs. - MRI brain w/wo done (11/10): cortical enhancement along the right frontal parietal and temporal regions 2/2 infarct progression but can't rule out cerebritis or infections.however LP neg. Also had glenis PEG fluid collection: Improved on abx - Urology replaced puentes (11/09-) Extubated, now on RA HOME Medications Prior to Admission medications Medication Sig Start Date End Date Taking? Authorizing Provider cetirizine (ZyrTEC) 10 MG tablet Take 1 tablet (10 mg total) by mouth in the morning. Yes Historical Provider, omeprazole (PriLOSEC) 20 MG capsule Take 1 capsule (20 mg total) by mouth in the morning. Yes Historical Provider, amitriptyline (ELAVIL) 50 MG tablet 2 tablets (100 mg total) nightly. Historical Provider, CURRENT Medications Current Facility-Administered Medications: acetaminophen (TYLENOL) tablet 500 mg, 500 mg, Per Tube, Q6H PRN, Nghia Pryor MD, 500 mg at 12/07/22 1353 baclofen (LIORESAL) tablet 5 mg, 5 mg, Oral, Nightly, Yamileth Frias MD, 5 mg at 12/09/222104 bethanechol (URECHOLINE) tablet 25 mg, 25 mg, Oral, 3 times per day, Yamileth Frias MD, 25 mg at 12/10/22 141 bisacodyl (DULCOLAX) suppository 10 mg, 10 mg, Rectal, Daily PRN, Yamileth Frias MD, 10 mg at 12/10/22 125 cefdinir (OMNICEF) capsule 300 mg, 300 mg, Oral, 2 times per day, Nghia Pryor MD, 300 mg at 12/10/22 09 cholecalciferol (VITAMIN D3) tablet 2,000 Units, 2,000 Units, Per Tube, Once a day, Nghia Pryor MD, 2,000 Units at 12/10/22 09 cyclobenzaprine (FLEXERIL) tablet 5 mg, 5 mg, Oral, 3 times per day, Loy Dawson MD, 5 mg at 12/10/22 1410 gabapentin (NEURONTIN) capsule 300 mg, 300 mg, Oral, 3 times per day, Loy Dawson MD, 300 mg at 12/10/22 1410 guaiFENesin (ROBITUSSIN) 100 MG/5ML liquid 10 mL, 10 mL, Enteral, BID PRN, Nghia Pryor MD hydrocortisone (ANUSOL-HC) 2.5 % rectal cream, , Rectal, 2 times per day, Loy Dawson MD, Given at 12/09/222107 hydrOXYzine (ATARAX) tablet 25 mg, 25 mg, Oral, Q6H PRN, Yamileth Frias MD, 25 mg at 12/09/222104 lidocaine (LIDOCARE) 4 % patch 1 patch, 1 patch, Transdermal, Once a day, Loy Dawson MD, 1 patch at 12/09/22 08 loratadine (CLARITIN) tablet 10 mg, 10 mg, Enteral, Once a day, Nghia Pryor MD, 10 mg at 12/10/22 0938 metoprolol tartrate (LOPRESSOR) tablet 25 mg, 25 mg, Enteral, 2 times per day, Nghai Pryor MD, 25 mg at 12/10/22 0937 muscle rub (ICY HOT) 10-15 % cream, , Topical, 3 times per day, Yamileth Frias MD, Given at 12/10/22 0936 ondansetron ODT (ZOFRAN-ODT) disintegrating tablet 4 mg, 4 mg, Per Tube, Q6H PRN, Marlee Bradley MD, 4 mg at 12/07/22 1032 oxyCODONE (ROXICODONE) immediate release tablet 5 mg, 5 mg, Enteral, Q4H PRN, Marlee Bradley MD, 5mg at 12/09/22 1510 oxyCODONE (ROXICODONE) immediate release tablet 5 mg, 5 mg, Oral, Daily at 0600, Yamileth Frias MD, 5 mg at 12/10/22 0607 pantoprazole-sodium bicarbonate 2mg/ml oral liquid 40 mg, 40 mg, Per Tube, Daily bef breakfast, Marlee Bradley MD, 40 mg at 12/10/22 0608 polyethylene glycol (MIRALAX) packet 17 g, 17 g, Per Tube, BID PRN, Yamileth Frias MD senna-docusate (SENOKOT-S) 8.6-50 MG tablet 2 tablet, 2 tablet, Enteral, Daily PRN, Yamileth Frias MD simethicone (MYLICON) chewable tablet 80 mg, 80 mg, Per Tube, BID PRN, Marlee Bradley MD, 80 mg at11/28/222051 tamsulosin (FLOMAX) 24 hr capsule 0.4 mg, 0.4 mg, Enteral, After Breakfast, Nghia Pryor MD, 0.4 mg at 12/10/22 09 triamcinolone (KENALOG) 0.1 % ointment, , Apply externally, BID PRN, Nghia Pryor MD, Given at 11/20/222014 verapamil (CALAN) tablet 40 mg, 40 mg, Enteral, Q8H SENDY, Nghia Pryor MD, 40 mg at 12/10/22 1410 Warfarin Per Policy, , Does not apply, Daily, Nghia Pryor MD DATA Vitals: 12/10/22 0554 12/10/22 0600 12/10/22 0712 12/10/22 1408 BP: 126/75 116/74 112/73 Pulse: 72 80 63 Resp: 18 Temp: 97.8 ??F (36.6 ??C) TempSrc: Oral SpO2: 94% 92% Weight: 192 lb (87.1 kg) Height: Weights (last 3 days) Date/Time Weight Height BSA (Calculated - sq m) 12/10/22 0554 192 lb (87.1 kg) -- -- 12/08/22 0400 191 lb (86.6 kg) 5' 4 (1.626 m) 1.98 sq meters @ANTICOAGSUMMARY@ @FLOWDATE(2706:LAST)@ Intake/Output Summary (Last 24 hours) at 12/10/20221946 Last data filed at 12/10/2022 1820 Gross per 24 hour Intake 360 ml Output 2320 ml Net -1960 ml PHYSICAL EXAM General appearance: awake, alert, cooperative, no distress HEENT: Normocephalic, No icterus, No oral lesions, Oral and nasal mucosa moist Neck: Supple, no lymphadenopathy Eyes: EOMI, Conjunctiva normal, No discharge Cardiovascular: Normal heart rate, Normal rhythm, No murmurs, No rubs, No gallops Respiratory: Normal breath sounds, No respiratory distress, No wheezing, No rhonchi, No rales, No chest tenderness. GI: Bowel sounds normal, Soft, No tenderness, No rebound or guarding, No masses. Abdomen: soft without mass, non-tender, with normal bowel sounds Extremities: no clubbing, cyanosis or edema, no calf tenderness Musculoskeletal:no swelling of joints.no redness Psychologic: Mood ok, no suicidal ideation. Skin: No rash. 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 LABS CBC with Differential: No results found for: WBC, RBC, HGB, HEMOGLOBIN, HCT, HEMATOCRIT, PLT, MCV, MCH, MCHC, RDW, NEUTPERCENT, MONOPERCENT, LYMPHPERCENT, BASOPERCENT [ BMP: No results found for: NA, SODIUM, K, POTASSIUM, CL, CO2, BUN, CREATININE, LABCREA, EGFR, GLU, LABGLUC, GLUCOSE, GLUCOSEFL, CALCIUM, CALCIUMUR, ANIONGAP MG/PHOS: No results found for: MG, PHOS CKMB: No components found for: CKMB;2 PT/INR: No results found for: LABPROT, INR BNP: No results found for: BNP Last 3 Troponin: No components found for: TROPONINI;3 U/A: No results found for: COLORU, CLARITYU, GLUCOSEU, BILIRUBINUR, KETONESU, SPECGRAV, BLOODU, PHUR, UROBILINOGEN, NITRITE, LEUKOCYTESUR, MUCUS, RBCUA, WBCUA CMP: No results found for: NA, SODIUM, K, POTASSIUM, CL, CO2, BUN, CREATININE, LABCREA, GLU, LABGLUC, GLUCOSE, PROT, CALCIUM, ALBUMIN, BILITOT, ALKALINEPHO, ALT, AST, ANIONGAP, EGFR LFT's: No results found for: ALB, PROT Ionized Calcium: No components found for: IONCA ABG: No results found for: PHART, IGD1HWT, PO2ART, ZYR1CHO, BEART, [id number] HgBA1c: No results found for: HGBA1C Lipid Panel: No results found for: CHOL, TRIG, HDL TSH: No results found for: TSH Lab Results Component Value Date GLUCOSE 164 (H) 12/07/2022 BUN 8 12/07/2022 CREATININE 0.76 12/07/2022 NA 138 12/07/2022 K 3.6 12/07/2022 CL 101 12/07/2022 CO2 23 12/07/2022 CALCIUM 9.3 12/07/2022 @RESU CBC: Recent Labs Lab Units 12/07/22 0015 WBC X(10)9/L BLOOD x10E9/L 7.3 HGB GM/DL BLOOD gm/dL 10.2* PLT CT X(10)9/L BLOOD x10E9/L 319 MCV FL BLOOD fl 93.6 BMP: Recent Labs Lab Units 12/07/22 0015 SODIUM MMOL/L BLOOD mmol/L 138 POTASSIUM MMOL/L BLOOD mmol/L 3.6 CHLORIDE mmol/L 101 CO2 mmol/L 23 BUN MG/DL BLOOD mg/dL 8 CREATININE mg/dL 0.76 GLUCOSE MG/DL BLOOD mg/dL 164* CALCIUM MG/DL BLOOD mg/dL 9.3 I reviewed the EKG tracing/Xray Recent Labs Lab Units 12/07/22 0015 SODIUM MMOL/L BLOOD mmol/L 138 POTASSIUM MMOL/L BLOOD mmol/L 3.6 CHLORIDE mmol/L 101 CO2 mmol/L 23 BUN MG/DL BLOOD mg/dL 8 CREATININE mg/dL 0.76 GLUCOSE MG/DL BLOOD mg/dL 164* CALCIUM MG/DL BLOOD mg/dL 9.3 ANION GAP BLOOD mmol/L 14 ASSESSMENT AND PLAN Principal Problem: Cerebrovascular accident Active Problems: Trochanteric bursitis of left hip Acute R MCA CVA Left hemiplegia /p TNK and MT and TICI2b revascularization on 10/19. Developed MCA syndrome s/p hemicrani. 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 - MRI brain w/wo done (11/10): cortical enhancement along the right frontal parietal and temporal regions 2/2 infarct progression but can't rule out cerebritis or infections.LP not concerning, however. -- glenis PEG fluid collection: Improved on abx - Urology replaced puentes (11/09-) TTE showed mobile aortic valve vegetation. IV abxs HTN Continue meds Migraine without aura Pian control GERD PPI Oral contraceptive use DVT Prophylaxis Obesity BMI 36 Nutrition consult Abn LFT Check hep screen Watch with statin D Pain management Today's pain score FEN. Nutrition consult for evaluation of nutritional status and the best diet. And for BMI evaluation and education regarding maintaining a healthy BMI Bladder management Voiding ok Bowel management . Titrate bowel medications for constipation/diarrhea. Skin. Nursing to address skin care throughout stay. Turn every 2 hrs Sleep. Monitor sleep-wake cycle. High Fall risk- Fall precautions GI Prophylaxis: DVT Prophylaxis: Full Resuscitation D/W patient , and attending physician about test results and treatment plan .No family in the room.Patient requiring monitoring of BP and HR while doing 3 hour intensive exercises to avoid fluctuations and hypotension . Aswell as monitoring of nutritional and fluid status , by weights, leg edema .Notified staff and patient to notify me of any change inconditions or new problems Electronically signed by: MARLEE BRADLEY MD, at [facility] basically DUI may be GI need a I divinglysis consult subacute S do * Nghia Pryor MD - 12/09/2022 3:43 PM CDT HOSPITALIST PROGRESS NOTE Patient Name: Consuelo Darby : 1980 Medical Record: [id number] ATTENDING Yamileth Frias MD SUBJECTIVE 11/19 The patient is being seen for follow-up of Cerebrovascular accident. BP, BS , HR, labs, strength. .Chief Complaint CT head ok Headache much better Got upto chair without helmet =did ok Working on better helmet Consider spinal headache if recurs- d/w dr Villagran strength improving, able to do therapy ok. No chest pain, no SOB, no dizziness, no palpitations, no new neurologic symptoms. No cough, No nausea or vomiting, No abdominal pain. History also obtained from Nurse and staff about how the patient did overnight and during the day strength improving, able to do therapy ok. 11/20 Patient seen an examined Doing alright No new issues to report Vitals reviewed 11/21 Patient seen and examined earlier No new issues to report Vitals reviewed Resting comfortably 11/22 Patient seen and examined Doing alright at this time Resting comfortably Vitals reviewed 11/23 The patient was seen in the room this afternoon. The patient currently does not report any chest pain, shortness present nausea or vomiting No reported issues from the floor nurse. The most recent labs and vital signs were reviewed. 11/24: Patient seen and examined this morning. Patient complaining of bilateral hip pain. Have placed order for Flexeril and lidocaine patch. No acute events reported overnight. Blood work and vital signs remained stable. Continue current medical management. 11/25: Patient seen and examined this morning. Patient continues to complain of bilateral hip pain. Continue lidocaine patches. Have scheduled Flexeril 5 mg t.i.d.. Continue current medical management. 11/26: Patient seen and examined this morning. Patient continues to complain of hip pain. Follow up left hip x-ray. Follow up with PM&R for further recommendations. Continue Lovenox. Have discussed Coumadin dosing with pharmacy. Goal to have INR from 2-3. No acute events reported overnight. Continue current medical management. 11/27:Patient seen and examined this morning. Vitals and labs reviewed. Resting comfortably. No acute events overnight. Continue current medical management. 11/30 Patient seen and examined Doing ok. No new issues to report 12/01 Patient seen and examined earlier this afternoon. Things are going well. No new issues to report. 12/02:Patient seen and examined this morning. Vitals and labs reviewed. Resting comfortably. No acute events overnight. Continue current medical management. 12/03: Patient seen and examined this morning. Patient complaining of sharp shooting pain around herleft hip area. Have started gabapentin 300 mg t.i.d.. Vital signs and blood work reviewed. INR at goal. Continue current medical management. 12/04 Patient seen and examined. Doing ok at this time. No new issues to report. Vitals reviewed. 12/05 Patient seen and examined earlier today. Doing alright. No new issues to report. Vitals reviewed. Having pain in hip. Discussed with dr. Frias 12/06 Patient seen and examined. Doing alright currently. No new issues to report. Vitals reviewed. 12/07 Patient seen and examined today. Doing alright. No new issues to report. Vitals reviewed. 12/08 Patient seen and examined. Doing alright. No new issues. 12/09 Patient seen and examined today. Doing well. Says she had steroid injection yesterday. Feels about the same. BRIEF HISTORY The patient is a 42 y.o. y/o female with history of HTN, GERD, presented tO ED with new left sided weakness and slurred speech Diagnosed with acute CVA s/p TNK and m1 occlusion S/P MT . c/b R iliac and common femoral artery occlusion s/p thrombectomy. Developed Fever: consulted ID, shanna abx, Cxs. - MRI brain w/wo done (11/10): cortical enhancement along the right frontal parietal and temporal regions 2/2 infarct progression but can't rule out cerebritis or infections.however LP neg. Also had glenis PEG fluid collection: Improved on abx - Urology replaced puentes (11/09-) Extubated, now on RA HOME Medications Prior to Admission medications Medication Sig Start Date End Date Taking? Authorizing Provider cetirizine (ZyrTEC) 10 MG tablet Take 1 tablet (10 mg total) by mouth in the morning. Yes Historical Provider, omeprazole (PriLOSEC) 20 MG capsule Take 1 capsule (20 mg total) by mouth in the morning. Yes Historical Provider, amitriptyline (ELAVIL) 50 MG tablet 2 tablets (100 mg total) nightly. Historical Provider, CURRENT Medications Current Facility-Administered Medications: acetaminophen (TYLENOL) tablet 500 mg, 500 mg, Per Tube, Q6H PRN, Nghia Pryor MD, 500 mg at 12/07/22 1353 baclofen (LIORESAL) tablet 5 mg, 5 mg, Oral, Nightly, Yamileth Frias MD, 5 mg at 12/08/22 213 bethanechol (URECHOLINE) tablet 25 mg, 25 mg, Oral, 3 times per day, Yamileth Frias MD, 25 mg at 12/09/22 145 bisacodyl (DULCOLAX) suppository 10 mg, 10 mg, Rectal, Daily PRN, Yamileth Frias MD, 10 mg at 12/06/22 182 cefdinir (OMNICEF) capsule 300 mg, 300 mg, Oral, 2 times per day, Nghia Pryor MD, 300 mg at 12/09/22 0835 cholecalciferol (VITAMIN D3) tablet 2,000 Units, 2,000 Units, Per Tube, Once a day, Nghia Pryor MD, 2,000 Units at 12/09/22 0835 cyclobenzaprine (FLEXERIL) tablet 5 mg, 5 mg, Oral, 3 times per day, Loy Dawson MD, 5 mg at 12/09/22 1455 gabapentin (NEURONTIN) capsule 300 mg, 300 mg, Oral, 3 times per day, Loy Dawson MD, 300 mg at 12/09/22 1455 guaiFENesin (ROBITUSSIN) 100 MG/5ML liquid 10 mL, 10 mL, Enteral, BID PRN, Nghia Pryor MD hydrocortisone (ANUSOL-HC) 2.5 % rectal cream, , Rectal, 2 times per day, Loy Dawson MD, Given at 12/08/222128 hydrOXYzine (ATARAX) tablet 25 mg, 25 mg, Oral, Q6H PRN, Yamileth Frias MD, 25 mg at 12/07/222200 lidocaine (LIDOCARE) 4 % patch 1 patch, 1 patch, Transdermal, Once a day, Loy Dawson MD, 1 patch at 12/09/22 0836 loratadine (CLARITIN) tablet 10 mg, 10 mg, Enteral, Once a day, Nghia Pryor MD, 10 mg at 12/09/22 0837 metoprolol tartrate (LOPRESSOR) tablet 25 mg, 25 mg, Enteral, 2 times per day, Nghia Pryor MD, 25 mg at 12/09/22 0835 muscle rub (ICY HOT) 10-15 % cream, , Topical, 3 times per day, Yamileth Frias MD, Given at 12/09/22 1456 ondansetron ODT (ZOFRAN-ODT) disintegrating tablet 4 mg, 4 mg, Per Tube, Q6H PRN, Marlee Bradley MD, 4 mg at 12/07/22 1032 oxyCODONE (ROXICODONE) immediate release tablet 5 mg, 5 mg, Enteral, Q4H PRN, Marlee Bradley MD, 5mg at 12/09/22 1510 oxyCODONE (ROXICODONE) immediate release tablet 5 mg, 5 mg, Oral, Daily at 0600, Yamileth Frias MD, 5 mg at 12/09/22 0605 pantoprazole-sodium bicarbonate 2mg/ml oral liquid 40 mg, 40 mg, Per Tube, Daily bef breakfast, Marlee Bradley MD, 40 mg at 12/09/22 0606 polyethylene glycol (MIRALAX) packet 17 g, 17 g, Per Tube, BID PRN, Yamileth Frias MD senna-docusate (SENOKOT-S) 8.6-50 MG tablet 2 tablet, 2 tablet, Enteral, Daily PRN, Yamileth Frias MD simethicone (MYLICON) chewable tablet 80 mg, 80 mg, Per Tube, BID PRN, Marlee Bradley MD, 80 mg at11/28/222051 tamsulosin (FLOMAX) 24 hr capsule 0.4 mg, 0.4 mg, Enteral, After Breakfast, Nghia Pryor MD, 0.4 mg at 12/09/22 0837 triamcinolone (KENALOG) 0.1 % ointment, , Apply externally, BID PRN, Nghia Pryor MD, Given at 11/20/222014 verapamil (CALAN) tablet 40 mg, 40 mg, Enteral, Q8H SENDY, Nghia Pryor MD, 40 mg at 12/09/22 1455 Warfarin Per Policy, , Does not apply, Daily, Nghia Pryor MD [COMPLETED] warfarin tablet 3 mg, 3 mg, Oral, Once, 3 mg at 12/08/22 1750 FOLLOWED BY warfarin tablet 4 mg, 4 mg, Oral, Daily, Nghia Pryor MD DATA Vitals: 12/08/22 1914 12/09/22 0538 12/09/22 0737 12/09/22 0745 BP: 109/70 100/60 109/71 Pulse: 83 74 77 Resp: 16 17 Temp: 97.9 ??F (36.6 ??C) 98.7 ??F (37.1 ??C) TempSrc: Oral Oral Tympanic SpO2: 92% 91% Weight: Height: Weights (last 3 days) Date/Time Weight Height BSA (Calculated - sq m) 12/08/22 0400 191 lb (86.6 kg) 5' 4 (1.626 m) 1.98 sq meters @ANTICOAGSUMMARY@ @FLOWDATE(2706:LAST)@ Intake/Output Summary (Last 24 hours) at 12/09/2022 1543 Last data filed at 12/09/2022 1242 Gross per 24 hour Intake 2020 ml Output 3495 ml Net -1475 ml PHYSICAL EXAM General appearance: awake, alert, cooperative, no distress HEENT: Normocephalic, No icterus, No oral lesions, Oral and nasal mucosa moist Neck: Supple, no lymphadenopathy Eyes: EOMI, Conjunctiva normal, No discharge Cardiovascular: Normal heart rate, Normal rhythm, No murmurs, No rubs, No gallops Respiratory: Normal breath sounds, No respiratory distress, No wheezing, No rhonchi, No rales, No chest tenderness. GI: Bowel sounds normal, Soft, No tenderness, No rebound or guarding, No masses. Abdomen: soft without mass, non-tender, with normal bowel sounds Extremities: no clubbing, cyanosis or edema, no calf tenderness Musculoskeletal:no swelling of joints.no redness Psychologic: Mood ok, no suicidal ideation. Skin: No rash. 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 LABS CBC with Differential: Lab Results Component Value Date WBC 7.3 12/07/2022 HGB 10.2 (L) 12/07/2022 HCT 32.1 (L) 12/07/2022 PLT 319 12/07/2022 MCV 93.6 12/07/2022 MCH 29.7 12/07/2022 MCHC 31.8 12/07/2022 RDW 15.2 (H) 12/07/2022 [ BMP: Lab Results Component Value Date NA 138 12/07/2022 K 3.6 12/07/2022 CL 101 12/07/2022 CO2 23 12/07/2022 BUN 8 12/07/2022 CREATININE 0.76 12/07/2022 GLUCOSE 164 (H) 12/07/2022 CALCIUM 9.3 12/07/2022 ANIONGAP 14 12/07/2022 MG/PHOS: No results found for: MG, PHOS CKMB: No components found for: CKMB;2 PT/INR: Lab Results Component Value Date INR 2.4 (H) 12/07/2022 BNP: No results found for: BNP Last 3 Troponin: No components found for: TROPONINI;3 U/A: No results found for: COLORU, CLARITYU, GLUCOSEU, BILIRUBINUR, KETONESU, SPECGRAV, BLOODU, PHUR, UROBILINOGEN, NITRITE, LEUKOCYTESUR, MUCUS, RBCUA, WBCUA CMP: Lab Results Component Value Date NA 138 12/07/2022 K 3.6 12/07/2022 CL 101 12/07/2022 CO2 23 12/07/2022 BUN 8 12/07/2022 CREATININE 0.76 12/07/2022 GLUCOSE 164 (H) 12/07/2022 CALCIUM 9.3 12/07/2022 ANIONGAP 14 12/07/2022 LFT's: No results found for: ALB, PROT Ionized Calcium: No components found for: IONCA ABG: No results found for: PHART, FZE3LTU, PO2ART, WZO1ZSV, BEART, [id number] HgBA1c: No results found for: HGBA1C Lipid Panel: No results found for: CHOL, TRIG, HDL TSH: No results found for: TSH Lab Results Component Value Date GLUCOSE 164 (H) 12/07/2022 BUN 8 12/07/2022 CREATININE 0.76 12/07/2022 NA 138 12/07/2022 K 3.6 12/07/2022 CL 101 12/07/2022 CO2 23 12/07/2022 CALCIUM 9.3 12/07/2022 @RESU CBC: Recent Labs Lab Units 12/07/22 0015 WBC X(10)9/L BLOOD x10E9/L 7.3 HGB GM/DL BLOOD gm/dL 10.2* PLT CT X(10)9/L BLOOD x10E9/L 319 MCV FL BLOOD fl 93.6 BMP: Recent Labs Lab Units 12/07/22 0015 SODIUM MMOL/L BLOOD mmol/L 138 POTASSIUM MMOL/L BLOOD mmol/L 3.6 CHLORIDE mmol/L 101 CO2 mmol/L 23 BUN MG/DL BLOOD mg/dL 8 CREATININE mg/dL 0.76 GLUCOSE MG/DL BLOOD mg/dL 164* CALCIUM MG/DL BLOOD mg/dL 9.3 I reviewed the EKG tracing/Xray Recent Labs Lab Units 12/07/22 0015 SODIUM MMOL/L BLOOD mmol/L 138 POTASSIUM MMOL/L BLOOD mmol/L 3.6 CHLORIDE mmol/L 101 CO2 mmol/L 23 BUN MG/DL BLOOD mg/dL 8 CREATININE mg/dL 0.76 GLUCOSE MG/DL BLOOD mg/dL 164* CALCIUM MG/DL BLOOD mg/dL 9.3 ANION GAP BLOOD mmol/L 14 ASSESSMENT AND PLAN Principal Problem: Cerebrovascular accident Active Problems: Trochanteric bursitis of left hip Acute R MCA CVA Left hemiplegia /p TNK and MT and TICI2b revascularization on 10/19. Developed MCA syndrome s/p hemicrani. 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 - MRI brain w/wo done (11/10): cortical enhancement along the right frontal parietal and temporal regions 2/2 infarct progression but can't rule out cerebritis or infections.LP not concerning, however. -- glenis PEG fluid collection: Improved on abx - Urology replaced puentes (11/09-) TTE showed mobile aortic valve vegetation. IV abxs HTN Continue meds Migraine without aura Pian control GERD PPI Oral contraceptive use DVT Prophylaxis Obesity BMI 36 Nutrition consult Abn LFT Check hep screen Watch with statin D Pain management Today's pain score FEN. Nutrition consult for evaluation of nutritional status and the best diet. And for BMI evaluation and education regarding maintaining a healthy BMI Bladder management Voiding ok Bowel management . Titrate bowel medications for constipation/diarrhea. Skin. Nursing to address skin care throughout stay. Turn every 2 hrs Sleep. Monitor sleep-wake cycle. High Fall risk- Fall precautions GI Prophylaxis: DVT Prophylaxis: Full Resuscitation D/W patient , and attending physician about test results and treatment plan .No family in the room.Patient requiring monitoring of BP and HR while doing 3 hour intensive exercises to avoid fluctuations and hypotension . Aswell as monitoring of nutritional and fluid status , by weights, leg edema .Notified staff and patient to notify me of any change inconditions or new problems Electronically signed by: NGHIA PRYOR MD, at [facility] basically DUI may be GI need a I diving lysis consult subacute S do * Sandra Land, PharmD - 12/08/2022 2:41 PM CDT [facility] Pharmacy Note Pharmacy Consultation - Warfarin Dosing and Monitoring Consuelo Darby is a 42 y.o. female who has been consulted for pharmacy warfarin dosing and monitoring for indication of embolic stroke. Labs: INR Date Value Ref Range Status 12/07/2022 2.4 (H) 0.9 - 1.1 Final 12/05/2022 2.6 (H) 0.9 - 1.1 Final 12/04/2022 2.7 (H) 0.9 - 1.1 Final 12/03/2022 2.4 (H) 0.9 - 1.1 Final 12/02/2022 2.5 (H) 0.9 - 1.1 Final HGB gm/dL Blood Date Value Ref Range Status 12/07/2022 10.2 (L) 12.0 - 15.6 gm/dL Final 12/04/2022 10.2 (L) 12.0 - 15.6 gm/dL Final 11/30/2022 10.0 (L) 12.0 - 15.6 gm/dL Final HCT % Blood Date Value Ref Range Status 12/07/2022 32.1 (L) 35.9 - 45.5 % Final 12/04/2022 32.5 (L) 35.9 - 45.5 % Final 11/30/2022 32.1 (L) 35.9 - 45.5 % Final Plt Ct X(10)9/L Blood Date Value Ref Range Status 12/07/2022 319 153 - 416 x10E9/L Final 12/04/2022 269 153 - 416 x10E9/L Final 11/30/2022 254 153 - 416 x10E9/L Final Current Facility-Administered Medications: acetaminophen (TYLENOL) tablet 500 mg, 500 mg, Per Tube, Q6H PRN, Nghia Pryor MD, 500 mg at 12/07/22 1353 baclofen (LIORESAL) tablet 5 mg, 5 mg, Oral, Nightly, Yamileth Frias MD, 5 mg at 12/07/222200 bethanechol (URECHOLINE) tablet 25 mg, 25 mg, Oral, 3 times per day, Yamileth Frias MD, 25 mg at 12/08/22 0818 bisacodyl (DULCOLAX) suppository 10 mg, 10 mg, Rectal, Daily PRN, Yamileth Frias MD, 10 mg at 12/06/22 1821 cefdinir (OMNICEF) capsule 300 mg, 300 mg, Oral, 2 times per day, Nghia Pryor MD, 300 mg at 12/08/22 08 cholecalciferol (VITAMIN D3) tablet 2,000 Units, 2,000 Units, Per Tube, Once a day, Nghia Pryor MD, 2,000 Units at 12/08/22817 cyclobenzaprine (FLEXERIL) tablet 5 mg, 5 mg, Oral, 3 times per day, Loy Dawson MD, 5 mg at 12/08/22817 gabapentin (NEURONTIN) capsule 300 mg, 300 mg, Oral, 3 times per day, Loy Dawson MD, 300 mg at 12/08/22 0818 guaiFENesin (ROBITUSSIN) 100 MG/5ML liquid 10 mL, 10 mL, Enteral, BID PRN, Nghia Pryor MD hydrocortisone (ANUSOL-HC) 2.5 % rectal cream, , Rectal, 2 times per day, Lyo Dawson MD, Given at 12/07/22 220 hydrOXYzine (ATARAX) tablet 25 mg, 25 mg, Oral, Q6H PRN, Yamileth Frias MD, 25 mg at 12/07/22 220 lidocaine (LIDOCARE) 4 % patch 1 patch, 1 patch, Transdermal, Once a day, Loy Dawson MD, 1 patch at 12/08/22 08 loratadine (CLARITIN) tablet 10 mg, 10 mg, Enteral, Once a day, Nghia Pryor MD, 10 mg at 12/08/22817 metoprolol tartrate (LOPRESSOR) tablet 25 mg, 25 mg, Enteral, 2 times per day, Nghia Pryor MD, 25 mg at 12/08/22 0818 muscle rub (ICY HOT) 10-15 % cream, , Topical, 3 times per day, Yamileth Frias MD, Given at 12/08/22 0820 ondansetron ODT (ZOFRAN-ODT) disintegrating tablet 4 mg, 4 mg, Per Tube, Q6H PRN, Marlee Bradley MD, 4 mg at 12/07/22 1032 oxyCODONE (ROXICODONE) immediate release tablet 5 mg, 5 mg, Enteral, Q4H PRN, Marlee Bradley MD, 5mg at 12/08/22 0821 oxyCODONE (ROXICODONE) immediate release tablet 5 mg, 5 mg, Oral, Daily at 0600, Yamileth Frias MD, 5 mg at 12/08/22 0556 pantoprazole-sodium bicarbonate 2mg/ml oral liquid 40 mg, 40 mg, Per Tube, Daily bef breakfast, Marlee Bradley MD, 40 mg at 12/08/22 0606 polyethylene glycol (MIRALAX) packet 17 g, 17 g, Per Tube, BID PRN, Yamileth Frias MD senna-docusate (SENOKOT-S) 8.6-50 MG tablet 2 tablet, 2 tablet, Enteral, Daily PRN, Yamileth Frias MD simethicone (MYLICON) chewable tablet 80 mg, 80 mg, Per Tube, BID PRN, Marlee Bradley MD, 80 mg at11/28/222051 tamsulosin (FLOMAX) 24 hr capsule 0.4 mg, 0.4 mg, Enteral, After Breakfast, Nghia Pryor MD, 0.4 mg at 12/08/22816 triamcinolone (KENALOG) 0.1 % ointment, , Apply externally, BID PRN, Nghia Pryor MD, Given at 11/20/222014 verapamil (CALAN) tablet 40 mg, 40 mg, Enteral, Q8H SENDY, Nghia Pryor MD, 40 mg at 12/08/22 0556 Warfarin Per Policy, , Does not apply, Daily, Nghia Pryor MD warfarin tablet 3 mg, 3 mg, Oral, Once FOLLOWED BY [START ON 12/09/2022] warfarin tablet 4 mg, 4mg, Oral, Daily, Nghia Pryor MD Assessment: Warfarin Indication: embolic stroke due to septic emboli; MT c/b R iliac and common femoral artery occlusion s/p thrombectomy. INR Goal: 2-3 Today's INR is 2.4 and is therapeutic. Bridging Therapy: No, describe: complete Risk Factors for Bleeding: na Pertinent Medication Related to Warfarin: na Plan: 1. Administer warfarin 3mg by mouth today followed by warfarin 4 mg by mouth daily for two days. 2. Check INR on Sunday. Pharmacy will follow up with INR recheck and order subsequent warfarin doses pending INR results. 3.The patient will continue to be monitored by the pharmacy department for the duration of the length of stay for assurance of medication safety and efficacy. SANDRA LAND, PharmD 2:40 PM CDT 12/08/22 * Yamileth Frias MD - 12/08/2022 1:30 PM CDT PM&R PROGRESS NOTE This is Face to Face Visit note Consuelo Darby is a 42 y.o. female patient. Mood better. Pain in hip to left REVIEW OF FUNCTIONAL STATUS Functional Status PT Data (since 12/05/2022) Value Time User Bed Mobility Comment Supine to sit = max A for trunk and L hemibody; cues for sonya-compensatory technique, sequencing, L sonya-body attention 12/08/2022 10:58 AM Tia Felix, PT Gait Analysis 10' x1, 25' x1, 30' x2, and 40' x1 with R sonya-aide and max A x1 for balance and LLE management; 2nd person required for cane management on first walk only, then pt progressed to being able to advance cane appropriately without assist - only required verbal cues; additional person for w/c follow for safety on each walk; L sling for glenohumeral support, L francisco wrap for DF; notable initiation/trace movement of L hip flexion on swing at times; improved with cues and practice, though not consistent; assist to fully advance L swing and total assist to stabilize L knee from buckling required; Deviations include sonya-paretic gait pattern, decreased wt shift R with lean L, L LE assist/stabilization as noted, L neglect, flexed posture, R head rotation 12/08/2022 12:04 PM Tia Felix, PT WC Analysis 95' including turns with mod/max A for steering, L attention; increased time and cues required 12/08/2022 12:04 PM Tia Felix, PT Functional Status OT Data (since 12/05/2022) None Patient Active Problem List Diagnosis Cerebrovascular accident Hypertension Past Medical History: Diagnosis Date Gastroesophageal reflux disease Hypertension Migraine Current Facility-Administered Medications: acetaminophen (TYLENOL) tablet 500 mg, 500 mg, Per Tube, Q6H PRN, Nghia Pryor MD, 500 mg at 12/07/22 1353 baclofen (LIORESAL) tablet 5 mg, 5 mg, Oral, Nightly, Yamileth Frias MD, 5 mg at 12/07/221 bethanechol (URECHOLINE) tablet 25 mg, 25 mg, Oral, 3 times per day, Yamileth Frias MD, 25 mg at 12/08/22817 bisacodyl (DULCOLAX) suppository 10 mg, 10 mg, Rectal, Daily PRN, Yamileth Frias MD, 10 mg at 12/06/22 182 cefdinir (OMNICEF) capsule 300 mg, 300 mg, Oral, 2 times per day, Nghia Pryor MD, 300 mg at 12/08/22817 cholecalciferol (VITAMIN D3) tablet 2,000 Units, 2,000 Units, Per Tube, Once a day, Nghia Pryor MD, 2,000 Units at 12/08/22817 cyclobenzaprine (FLEXERIL) tablet 5 mg, 5 mg, Oral, 3 times per day, Loy Dawson MD, 5 mg at 12/08/22817 gabapentin (NEURONTIN) capsule 300 mg, 300 mg, Oral, 3 times per day, Loy Dawson MD, 300 mg at 12/08/22817 guaiFENesin (ROBITUSSIN) 100 MG/5ML liquid 10 mL, 10 mL, Enteral, BID PRN, Nghia Proyr MD hydrocortisone (ANUSOL-HC) 2.5 % rectal cream, , Rectal, 2 times per day, Lyo Dawson MD, Given at 12/07/222201 hydrOXYzine (ATARAX) tablet 25 mg, 25 mg, Oral, Q6H PRN, Yamileth Frias MD, 25 mg at 12/07/222200 lidocaine (LIDOCARE) 4 % patch 1 patch, 1 patch, Transdermal, Once a day, Loy Dawson MD, 1 patch at 12/08/22816 loratadine (CLARITIN) tablet 10 mg, 10 mg, Enteral, Once a day, Nghia Pryor MD, 10 mg at 12/08/22817 metoprolol tartrate (LOPRESSOR) tablet 25 mg, 25 mg, Enteral, 2 times per day, Nghia Pryor MD, 25 mg at 12/08/22817 muscle rub (ICY HOT) 10-15 % cream, , Topical, 3 times per day, Yamileth Frias MD, Given at 12/08/22 0820 ondansetron ODT (ZOFRAN-ODT) disintegrating tablet 4 mg, 4 mg, Per Tube, Q6H PRN, Marlee Bradley MD, 4 mg at 12/07/22 1032 oxyCODONE (ROXICODONE) immediate release tablet 5 mg, 5 mg, Enteral, Q4H PRN, Marlee Bradley MD, 5mg at 12/08/22 0821 oxyCODONE (ROXICODONE) immediate release tablet 5 mg, 5 mg, Oral, Daily at 0600, Yamileth Frias MD, 5 mg at 12/08/22 0556 pantoprazole-sodium bicarbonate 2mg/ml oral liquid 40 mg, 40 mg, Per Tube, Daily bef breakfast, Marlee Bradley MD, 40 mg at 12/08/22 0606 polyethylene glycol (MIRALAX) packet 17 g, 17 g, Per Tube, BID PRN, Yamileth Frias MD senna-docusate (SENOKOT-S) 8.6-50 MG tablet 2 tablet, 2 tablet, Enteral, Daily PRN, Yamileth Frias MD simethicone (MYLICON) chewable tablet 80 mg, 80 mg, Per Tube, BID PRN, Marlee Bradley MD, 80 mg at11/28/222051 tamsulosin (FLOMAX) 24 hr capsule 0.4 mg, 0.4 mg, Enteral, After Breakfast, Nghia Pryor MD, 0.4 mg at 12/08/22816 triamcinolone (KENALOG) 0.1 % ointment, , Apply externally, BID PRN, Nghia Pryor MD, Given at 11/20/222014 verapamil (CALAN) tablet 40 mg, 40 mg, Enteral, Q8H SENDY, Nghia Pryor MD, 40 mg at 12/08/22 0556 Warfarin Per Policy, , Does not apply, Daily, Nghia Pryor MD warfarin tablet 3 mg, 3 mg, Oral, Once FOLLOWED BY [START ON 12/09/2022] warfarin tablet 4 mg, 4mg, Oral, Daily, Nghia Pryor MD Review of Systems: Review of Systems Constitutional: Negative for appetite change. HENT: Negative for congestion. Respiratory: Negative for shortness of breath. Cardiovascular: Positive for leg swelling. Genitourinary: Negative for flank pain. Musculoskeletal: Negative for arthralgias and joint swelling. Neurological: Negative for headaches. Psychiatric/Behavioral: The patient is nervous/anxious. Physical Exam Vitals: 12/08/22 0712 BP: 112/75 Pulse: 77 Resp: 18 Temp: 98.6 ??F (37 ??C) SpO2: 95% Physical Exam Constitutional: General: She is not in acute distress. HENT: Head: Atraumatic. Eyes: Conjunctiva/sclera: Conjunctivae normal. Cardiovascular: Rate and Rhythm: Normal rate. Pulmonary: Effort: Pulmonary effort is normal. Abdominal: General: There is no distension. Skin: Findings: No erythema. Neurological: Coordination: Coordination abnormal. Neurologic Exam Lab Data Reviewed current lab results available to me today. Lab Results Component Value Date WBC 7.3 12/07/2022 HGB 10.2 (L) 12/07/2022 HCT 32.1 (L) 12/07/2022 MCV 93.6 12/07/2022 PLT 319 12/07/2022 Lab Results Component Value Date GLUCOSE 164 (H) 12/07/2022 CALCIUM 9.3 12/07/2022 NA 138 12/07/2022 K 3.6 12/07/2022 CO2 23 12/07/2022 CL 101 12/07/2022 BUN 8 12/07/2022 CREATININE 0.76 12/07/2022 ANIONGAP 14 12/07/2022 Imaging Reviewed current imaging results available to me today. XR abdomen 1 vws Result Date: 11/19/2022 NARRATIVE: Procedure: XR ABDOMEN KUB Exam Date: 11/19/2022 9:38 AM Location: [facility] Indication: abdominal fullness, reflux. Patient on peg tube feeding FINDINGS/IMPRESSION: Air is seen throughout the colonic structures. No dilated bowel loops are identified. There is no evidence tosuggest obstruction. There is no gross free intraperitoneal air. There does appear to be a gastrostomy tube superimposing the stomach. > Interpreting Provider: Rebel Hernandez MD on 11/19/2022 9:[address] head WO contrast Result Date: 11/19/2022 NARRATIVE: Procedure: CT HEAD WO CONTRAST Exam Date: 11/19/2022 9:31 AM Location: [facility] CT head without IV contrast INDICATION: worsening pain TECHNIQUE: CT examination of the head was performed from the base of the skull through the vertex using multiple axial images without IV contrast. FINDINGS: No old studies are available for comparison purposes. VIZ AI was utilized. Patient is status post right-sided craniectomy. There is extensive encephalomalacia involving the right frontal lobe with with some minimal involvement of the temporal and parietal lobe. There is no acute infarct. There is no mass. There is no hemorrhage. There are no extra-axial fluid collections. There is no midline shift. IMPRESSION: IMPRESSION: Right frontal craniectomy with extensive encephalomalacia involving the right frontal lobe as well as some involvement of the parietal and temporal lobes. > Interpreting Provider: Rebel Hernandez MD on 11/19/2022 9:36 AM Assessment & Plan: Consuelo Darby is a 42 y.o. female patient with Cerebrovascular accident functional impairment for rehab Cerebrovascular accident PT, OT for gait training and ADL training, Nursing for bowel and bladder care. Speech therapy for swallow evaluation and cognitive evaluation. Acute R MCA CVA Left dense hemiplegia LUE / LLE : 0/5 Left face droop Left neglect Spasticity: SENDY Baclofen 5 mg HS and flexeril TID SENDY Oxy before therapy from 12/02 Left hip pain - XR on 08/05 Left GT bursitis: Left gt bursa injected on 12/08 please refer to procedure note for details Muscle rub SENDY s/p TNK and MT and TICI2b revascularization on 10/19. cerebral edema and midline shift s/p hemicraniectomy 10/20/22 Helmet Incision care R iliac and common femoral artery occlusion 10/30: R common femoral thrombectomy and patch angioplasty On Warfarin Dced Lovenox # Dysphagia: diet upgraded from Tolerating well GI consult for potential tube removal Dysarthria TTE showed mobile aortic valve vegetation. S /P IV abxs HTN Continue metoprolol , verapamil # headaches: On Tylenol and Oxy PRN Pian control # Neurogenic bladder: puentes placed on 12/04 but put removed on 12/05 Voiding trials today Urology consult Flomax HS Urecholine 25 mg TID from 11/27 Skin/Wounds: - Skin integrity and Pressure ulcer prevention: frequent repositioning and adequate pressure relief. Maintain clean, dry skin. If needed, q2 hour turns when in bed and regular skin checks, application of protective barrier cream, toileting schedule. Wound RN consult Bowel & Bladder - monitor bowel movement - adjust scheduled and PRN bowel regimen as needed - monitor for adequate urinary output - should suspicion for urinary retention arise, PVR of random bladder scan will be performed for further assessment Continue current medical management. RECOMMENDATIONS At the current time, this inpatient hospital rehabilitation stay is medically necessary to achieve important health and functional goals. The patient requires frequent physician visits, 24-hour rehabilitation nursing, and a coordinated intensive rehabilitation program as described above to address complex medical, nursing, and rehabilitation needs. Continue inpatient comprehensive interdisciplinary rehabilitation to address strengthening, mobility skills, self care, cognitive functioning, speech, communication and swallowing needs. The patient continues to require the interdisciplinary team approach and 24 hour monitoring. DIET: Dietary Orders (From admission, onward) Start Ordered 12/08/22 1156 Adult Diet Regular; 7 Regular (Regular Texture); 0 Thin (All Liquids) Diet effective now End/Expires: Until Specified References: [employer] Website Question Answer Comment Diet Type: Regular Diet Texture: 7 Regular (Regular Texture) Liquid Consistency: 0 Thin (All Liquids) Place order in third green party system. Done 12/08/22 1155 11/29/22 1700 Nutritional supplement Magic Cup; Oral 3 times daily with meals Comments: Send chocolate Thrive TID End/Expires: Until Specified Question Answer Comment Select Supplement: Magic Cup Administration Route: Oral Place order in third green party system. Done 11/29/22 1250 Patient Active Problem List Diagnosis Cerebrovascular accident Hypertension # Vision deficits: Hand Rigger following CHIN: DI YAMILETH FRIAS MD * Nghia Pryor MD - 12/08/2022 12:48 PM CDT HOSPITALIST PROGRESS NOTE Patient Name: Consuelo Darby : 1980 Medical Record: [id number] ATTENDING Yamileth Frias MD SUBJECTIVE 11/19 The patient is being seen for follow-up of Cerebrovascular accident. BP, BS , HR, labs, strength. .Chief Complaint CT head ok Headache much better Got upto chair without helmet =did ok Working on better helmet Consider spinal headache if recurs- d/w dr Villagran strength improving, able to do therapy ok. No chest pain, no SOB, no dizziness, no palpitations, no new neurologic symptoms. No cough, No nausea or vomiting, No abdominal pain. History also obtained from Nurse and staff about how the patient did overnight and during the day strength improving, able to do therapy ok. 11/20 Patient seen an examined Doing alright No new issues to report Vitals reviewed 11/21 Patient seen and examined earlier No new issues to report Vitals reviewed Resting comfortably 11/22 Patient seen and examined Doing alright at this time Resting comfortably Vitals reviewed 11/23 The patient was seen in the room this afternoon. The patient currently does not report any chest pain, shortness present nausea or vomiting No reported issues from the floor nurse. The most recent labs and vital signs were reviewed. 11/24: Patient seen and examined this morning. Patient complaining of bilateral hip pain. Have placed order for Flexeril and lidocaine patch. No acute events reported overnight. Blood work and vital signs remained stable. Continue current medical management. 11/25: Patient seen and examined this morning. Patient continues to complain of bilateral hip pain. Continue lidocaine patches. Have scheduled Flexeril 5 mg t.i.d.. Continue current medical management. 11/26: Patient seen and examined this morning. Patient continues to complain of hip pain. Follow up left hip x-ray. Follow up with PM&R for further recommendations. Continue Lovenox. Have discussed Coumadin dosing with pharmacy. Goal to have INR from 2-3. No acute events reported overnight. Continue current medical management. 11/27:Patient seen and examined this morning. Vitals and labs reviewed. Resting comfortably. No acute events overnight. Continue current medical management. 11/30 Patient seen and examined Doing ok. No new issues to report 12/01 Patient seen and examined earlier this afternoon. Things are going well. No new issues to report. 12/02:Patient seen and examined this morning. Vitals and labs reviewed. Resting comfortably. No acute events overnight. Continue current medical management. 12/03: Patient seen and examined this morning. Patient complaining of sharp shooting pain around herleft hip area. Have started gabapentin 300 mg t.i.d.. Vital signs and blood work reviewed. INR at goal. Continue current medical management. 12/04 Patient seen and examined. Doing ok at this time. No new issues to report. Vitals reviewed. 12/05 Patient seen and examined earlier today. Doing alright. No new issues to report. Vitals reviewed. Having pain in hip. Discussed with dr. Frias 12/06 Patient seen and examined. Doing alright currently. No new issues to report. Vitals reviewed. 12/07 Patient seen and examined today. Doing alright. No new issues to report. Vitals reviewed. 12/08 Patient seen and examined. Doing alright. No new issues. BRIEF HISTORY The patient is a 42 y.o. y/o female with history of HTN, GERD, presented tO ED with new left sided weakness and slurred speech Diagnosed with acute CVA s/p TNK and m1 occlusion S/P MT . c/b R iliac and common femoral artery occlusion s/p thrombectomy. Developed Fever: consulted ID, broaden abx, Cxs. - MRI brain w/wo done (11/10): cortical enhancement along the right frontal parietal and temporal regions 2/2 infarct progression but can't rule out cerebritis or infections.however LP neg. Also had glenis PEG fluid collection: Improved on abx - Urology replaced puentes (11/09-) Extubated, now on RA HOME Medications Prior to Admission medications Medication Sig Start Date End Date Taking? Authorizing Provider cetirizine (ZyrTEC) 10 MG tablet Take 1 tablet (10 mg total) by mouth in the morning. Yes Historical Provider, omeprazole (PriLOSEC) 20 MG capsule Take 1 capsule (20 mg total) by mouth in the morning. Yes Historical Provider, amitriptyline (ELAVIL) 50 MG tablet 2 tablets (100 mg total) nightly. Historical Provider, CURRENT Medications Current Facility-Administered Medications: acetaminophen (TYLENOL) tablet 500 mg, 500 mg, Per Tube, Q6H PRN, Nghia Pryor MD, 500 mg at 12/07/22 1353 baclofen (LIORESAL) tablet 5 mg, 5 mg, Oral, Nightly, Yamileth Frias MD, 5 mg at 12/07/222200 bethanechol (URECHOLINE) tablet 25 mg, 25 mg, Oral, 3 times per day, Yamileth Frias MD, 25 mg at 12/08/22817 bisacodyl (DULCOLAX) suppository 10 mg, 10 mg, Rectal, Daily PRN, Yamileth Frias MD, 10 mg at 12/06/22 182 cefdinir (OMNICEF) capsule 300 mg, 300 mg, Oral, 2 times per day, Nghia Pryor MD, 300 mg at 12/08/22817 cholecalciferol (VITAMIN D3) tablet 2,000 Units, 2,000 Units, Per Tube, Once a day, Nghia Pryor MD, 2,000 Units at 12/08/22817 cyclobenzaprine (FLEXERIL) tablet 5 mg, 5 mg, Oral, 3 times per day, Loy Dawson MD, 5 mg at 12/08/22817 gabapentin (NEURONTIN) capsule 300 mg, 300 mg, Oral, 3 times per day, Loy Dawson MD, 300 mg at 12/08/22817 guaiFENesin (ROBITUSSIN) 100 MG/5ML liquid 10 mL, 10 mL, Enteral, BID PRN, Nghia Pryor MD hydrocortisone (ANUSOL-HC) 2.5 % rectal cream, , Rectal, 2 times per day, Loy Dawson MD, Given at 12/07/222201 hydrOXYzine (ATARAX) tablet 25 mg, 25 mg, Oral, Q6H PRN, Yamileth Frias MD, 25 mg at 12/07/222200 lidocaine (LIDOCARE) 4 % patch 1 patch, 1 patch, Transdermal, Once a day, Loy Dawson MD, 1 patch at 12/08/22816 lidocaine (XYLOCAINE) 1 % injection 8 mL, 8 mL, Other, Once, Yamileth Frias MD loratadine (CLARITIN) tablet 10 mg, 10 mg, Enteral, Once a day, Nghia Pryor MD, 10 mg at 12/08/22817 metoprolol tartrate (LOPRESSOR) tablet 25 mg, 25 mg, Enteral, 2 times per day, Nghia Pryor MD, 25 mg at 12/08/22 0818 muscle rub (ICY HOT) 10-15 % cream, , Topical, 3 times per day, Yamileth Frias MD, Given at 12/08/22 0820 ondansetron ODT (ZOFRAN-ODT) disintegrating tablet 4 mg, 4 mg, Per Tube, Q6H PRN, Marlee Bradley MD, 4 mg at 12/07/22 1032 oxyCODONE (ROXICODONE) immediate release tablet 5 mg, 5 mg, Enteral, Q4H PRN, Marlee Bradley MD, 5mg at 12/08/22 0821 oxyCODONE (ROXICODONE) immediate release tablet 5 mg, 5 mg, Oral, Daily at 0600, Yamileth Frias MD, 5 mg at 12/08/22 0556 pantoprazole-sodium bicarbonate 2mg/ml oral liquid 40 mg, 40 mg, Per Tube, Daily bef breakfast, Marlee Bradley MD, 40 mg at 12/08/22 06 polyethylene glycol (MIRALAX) packet 17 g, 17 g, Per Tube, BID PRN, Yamileth Frias MD senna-docusate (SENOKOT-S) 8.6-50 MG tablet 2 tablet, 2 tablet, Enteral, Daily PRN, Yamileth Frias MD simethicone (MYLICON) chewable tablet 80 mg, 80 mg, Per Tube, BID PRN, Marlee Bradley MD, 80 mg at11/28/222051 tamsulosin (FLOMAX) 24 hr capsule 0.4 mg, 0.4 mg, Enteral, After Breakfast, Nghia Pryor MD, 0.4 mg at 12/08/22 08 triamcinolone (KENALOG) 0.1 % ointment, , Apply externally, BID PRN, Nghia Pryor MD, Given at 11/20/222014 triamcinolone acetonide (KENALOG-40) injection 80 mg, 80 mg, Intra-articular, Once, Yamileth Frias MD verapamil (CALAN) tablet 40 mg, 40 mg, Enteral, Q8H SENDY, Nghia Pryor MD, 40 mg at 12/08/22 0556 Warfarin Per Policy, , Does not apply, Daily, Nghia Pryor MD warfarin tablet 3 mg, 3 mg, Oral, Once FOLLOWED BY [START ON 12/09/2022] warfarin tablet 4 mg, 4mg, Oral, Daily, Nghia Pryor MD DATA Vitals: 12/07/22 0721 12/07/22 1920 12/08/22 0400 12/08/22 0712 BP: 118/74 98/63 112/75 Pulse: 83 78 77 Resp: 17 18 Temp: 97.9 ??F (36.6 ??C) 97.7 ??F (36.5 ??C) 98.6 ??F (37 ??C) TempSrc: Oral Oral Oral SpO2: 94% 97% 95% Weight: 191 lb (86.6 kg) Height: 5' 4 (1.626 m) Weights (last 3 days) Date/Time Weight Height BSA (Calculated - sq m) 12/08/22 0400 191 lb (86.6 kg) 5' 4 (1.626 m) 1.98 sq meters @ANTICOAGSUMMARY@ @FLOWDATE(2706:LAST)@ Intake/Output Summary (Last 24 hours) at 12/08/2022 1248 Last data filed at 12/08/2022 0810 Gross per 24 hour Intake 1030 ml Output 1250 ml Net -220 ml PHYSICAL EXAM General appearance: awake, alert, cooperative, no distress HEENT: Normocephalic, No icterus, No oral lesions, Oral and nasal mucosa moist Neck: Supple, no lymphadenopathy Eyes: EOMI, Conjunctiva normal, No discharge Cardiovascular: Normal heart rate, Normal rhythm, No murmurs, No rubs, No gallops Respiratory: Normal breath sounds, No respiratory distress, No wheezing, No rhonchi, No rales, No chest tenderness. GI: Bowel sounds normal, Soft, No tenderness, No rebound or guarding, No masses. Abdomen: soft without mass, non-tender, with normal bowel sounds Extremities: no clubbing, cyanosis or edema, no calf tenderness Musculoskeletal:no swelling of joints.no redness Psychologic: Mood ok, no suicidal ideation. Skin: No rash. 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 LABS CBC with Differential: Lab Results Component Value Date WBC 7.3 12/07/2022 HGB 10.2 (L) 12/07/2022 HCT 32.1 (L) 12/07/2022 PLT 319 12/07/2022 MCV 93.6 12/07/2022 MCH 29.7 12/07/2022 MCHC 31.8 12/07/2022 RDW 15.2 (H) 12/07/2022 [ BMP: Lab Results Component Value Date NA 138 12/07/2022 K 3.6 12/07/2022 CL 101 12/07/2022 CO2 23 12/07/2022 BUN 8 12/07/2022 CREATININE 0.76 12/07/2022 GLUCOSE 164 (H) 12/07/2022 CALCIUM 9.3 12/07/2022 ANIONGAP 14 12/07/2022 MG/PHOS: No results found for: MG, PHOS CKMB: No components found for: CKMB;2 PT/INR: Lab Results Component Value Date INR 2.4 (H) 12/07/2022 BNP: No results found for: BNP Last 3 Troponin: No components found for: TROPONINI;3 U/A: Lab Results Component Value Date COLORU [place] (A) 12/06/2022 CLARITYU Turbid (A) 12/06/2022 GLUCOSEU Negative 12/06/2022 BILIRUBINUR Negative 12/06/2022 KETONESU Negative 12/06/2022 UROBILINOGEN 4.0 (A) 12/06/2022 MUCUS 4+ 12/06/2022 RBCUA 21-50 (A) 12/06/2022 WBCUA >100 (A) 12/06/2022 CMP: Lab Results Component Value Date NA 138 12/07/2022 K 3.6 12/07/2022 CL 101 12/07/2022 CO2 23 12/07/2022 BUN 8 12/07/2022 CREATININE 0.76 12/07/2022 GLUCOSE 164 (H) 12/07/2022 CALCIUM 9.3 12/07/2022 ANIONGAP 14 12/07/2022 LFT's: No results found for: ALB, PROT Ionized Calcium: No components found for: IONCA ABG: No results found for: PHART, [id number], PO2ART, SHC7LYY, BEART, [id number] HgBA1c: No results found for: HGBA1C Lipid Panel: No results found for: CHOL, TRIG, HDL TSH: No results found for: TSH Lab Results Component Value Date GLUCOSE 164 (H) 12/07/2022 BUN 8 12/07/2022 CREATININE 0.76 12/07/2022 NA 138 12/07/2022 K 3.6 12/07/2022 CL 101 12/07/2022 CO2 23 12/07/2022 CALCIUM 9.3 12/07/2022 @RESU CBC: Recent Labs Lab Units 12/07/22 0015 WBC X(10)9/L BLOOD x10E9/L 7.3 HGB GM/DL BLOOD gm/dL 10.2* PLT CT X(10)9/L BLOOD x10E9/L 319 MCV FL BLOOD fl 93.6 BMP: Recent Labs Lab Units 12/07/22 0015 SODIUM MMOL/L BLOOD mmol/L 138 POTASSIUM MMOL/L BLOOD mmol/L 3.6 CHLORIDE mmol/L 101 CO2 mmol/L 23 BUN MG/DL BLOOD mg/dL 8 CREATININE mg/dL 0.76 GLUCOSE MG/DL BLOOD mg/dL 164* CALCIUM MG/DL BLOOD mg/dL 9.3 I reviewed the EKG tracing/Xray Recent Labs Lab Units 12/07/22 0015 SODIUM MMOL/L BLOOD mmol/L 138 POTASSIUM MMOL/L BLOOD mmol/L 3.6 CHLORIDE mmol/L 101 CO2 mmol/L 23 BUN MG/DL BLOOD mg/dL 8 CREATININE mg/dL 0.76 GLUCOSE MG/DL BLOOD mg/dL 164* CALCIUM MG/DL BLOOD mg/dL 9.3 ANION GAP BLOOD mmol/L 14 ASSESSMENT AND PLAN Principal Problem: Cerebrovascular accident Acute R MCA CVA Left hemiplegia /p TNK and MT and TICI2b revascularization on 10/19. Developed MCA syndrome s/p hemicrani. 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 - MRI brain w/wo done (11/10): cortical enhancement along the right frontal parietal and temporal regions 2/2 infarct progression but can't rule out cerebritis or infections.LP not concerning, however. -- glenis PEG fluid collection: Improved on abx - Urology replaced puentes (11/09-) TTE showed mobile aortic valve vegetation. IV abxs HTN Continue meds Migraine without aura Pian control GERD PPI Oral contraceptive use DVT Prophylaxis Obesity BMI 36 Nutrition consult Abn LFT Check hep screen Watch with statin D Pain management Today's pain score FEN. Nutrition consult for evaluation of nutritional status and the best diet. And for BMI evaluation and education regarding maintaining a healthy BMI Bladder management Voiding ok Bowel management . Titrate bowel medications for constipation/diarrhea. Skin. Nursing to address skin care throughout stay. Turn every 2 hrs Sleep. Monitor sleep-wake cycle. High Fall risk- Fall precautions GI Prophylaxis: DVT Prophylaxis: Full Resuscitation D/W patient , and attending physician about test results and treatment plan .No family in the room.Patient requiring monitoring of BP and HR while doing 3 hour intensive exercises to avoid fluctuations and hypotension . Aswell as monitoring of nutritional and fluid status , by weights, leg edema .Notified staff and patient to notify me of any change inconditions or new problems Electronically signed by: NGHIA PRYOR MD, at [facility] basically DUI may be GI need a I diving lysis consult subacute S do * Roland Paizshayy, RD - 12/08/2022 12:19 PM CDT CLINICAL NUTRITION REASSESSMENT: Pt seen for follow up. Diet was advanced from Pureed (4)/Dysphagia 1 to Soft Bite Sized (6)/Advanced Soft/Dysphagia 3 on 12/05/22. Per RN, diet advanced from Soft Bite Sized (6)/Advanced Soft/Dysphagia 3 to Regular diet today. Recorded po intake averaged 80% x 9 meals. Pt reports eating Magic Cup orThrive. Magic Cup (dysphagia supplement) provides 290 calories and 9g protein per serving. Weight up 2 lbs in past week. Plan for PEG tube to be removed, will discontinue TF order. Labs reviewed. Skin care continues. Bowels moving. Recommendation: Recommend cardiac diet d/t CVA Continue Magic Cup TID Discontinue TF bolus order Patient Active Problem List Diagnosis Cerebrovascular accident Hypertension Weight: Admit Weight: 198 lb (89.8 kg) (11/17/22 1720) Weight Method: Bed scale (11/17/22 172) Latest Weight: 191 lb (86.6 kg) (12/08/22 0400) Weight Method: Bed scale (12/08/22 040) Weight Comment: up 2 lbs in past week Dietary Orders (From admission, onward) Start Ordered 12/08/22 1156 Adult Diet Regular; 7 Regular (Regular Texture); 0 Thin (All Liquids) Diet effective now End/Expires: Until Specified References: [employer] Website Question Answer Comment Diet Type: Regular Diet Texture: 7 Regular (Regular Texture) Liquid Consistency: 0 Thin (All Liquids) Place order in third green party system. Done 12/08/22 1155 12/06/22 0858 Jevity 1.5; Tube Feeding Bolus (mL): 240; Tube Feeding Bolus frequency: if po intake < 50% meals; Tube Feeding water flush (mL): 50; Water flush frequency: Every 4 hours Diet effective now Comments: Decrease free water flush to 50 mL every 4 hours End/Expires: Until Specified Question Answer Comment Tube Feeding Formula: Jevity 1.5 Tube Feeding Bolus (mL): 240 Tube Feeding Bolus frequency: if po intake < 50% meals Tube Feeding water flush (mL): 50 Water flush frequency: Every [address] order in third green party system. Done 12/06/22 0857 11/29/22 1700 Nutritional supplement Magic Cup; Oral 3 times daily with meals Comments: Send chocolate Thrive TID End/Expires: Until Specified Question Answer Comment Select Supplement: Magic Cup Administration Route: Oral Place order in third green party system. Done 11/29/22 1250 Food Allergies: No known food allergies. Food/Nutrient Intake: P.O. (mL): 120 mL Supplement Consumed (mL): 40 mL Percent Meal Eaten (%): 100 of Last Documented Meal Difficulty Chewing or Swallowing: Yes (Comment) Nutrition Related Concerns: . Nutrition Related Concerns Nutrition Related Concerns: None NutritionSupport: Nutrition Support: No New Medications: No new nutrition related meds Relevant Labs: Most recent labs reviewed. H/H: Recent Labs Lab Units 12/07/22 0015 HGB GM/DL BLOOD gm/dL 10.2* HCT % BLOOD % 32.1* Recent Labs Lab Units 12/07/22 0015 SODIUM MMOL/L BLOOD mmol/L 138 POTASSIUM MMOL/L BLOOD mmol/L 3.6 CHLORIDE mmol/L 101 CO2 mmol/L 23 BUN MG/DL BLOOD mg/dL 8 CREATININE mg/dL 0.76 GLUCOSE MG/DL BLOOD mg/dL 164* CALCIUM MG/DL BLOOD mg/dL 9.3 ANION GAP BLOOD mmol/L 14 Skin: . PEG-J (double port) [id number] Status: Clean, Dry, Intact [REMOVED] Peripheral IV Left Antecubital-Dressing Status: Clean, Dry, Intact Last BM: Bowel Occurrence: Incontinent (12/07/22 0247) Care Plans: Plan of Care - Nutrition Care Plans 1 Author: Roland Mas RD Service: -- Author Type: Registered Dietitian Filed: 12/08/2022 12:19 PM Date of Service: 12/08/2022 12:19 PM Status: Signed Legal Coordinator: Roland Mas RD (Registered Dietitian) Problem: Swallowing Difficulty Description: Impaired or difficult movement of food and liquid within the oral cavity to the stomach. Related to: Motor causes, e.g., neurological or muscular disorders, such as cerebral palsy, stroke,multiple sclerosis, scleroderma; or prematurity, altered suck, swallow, breathe patterns, encephalopathy As evidenced by: modified consistency diet. Goal: Improve Nutritional Status Outcome: Completed Flowsheets (Taken 12/08/2022 1218) Meals and Snacks: (regular diet) General healthful diet Enteral and Parenteral Nutrition: (discontinued) -- Medical Food Supplement Therapy: (chocolate Magic Cup TID) Commercial beverage/Oral nutrition supplement Education Needs: none Monitor: po intake, supplement intake, weight, labs, skin, BMs Continue to follow every 5-7 days Roland Lewis MS, RD/MELVA [employer] [id number] 12/08/22 12:19 PM CDT * Nghia Pryor MD - 12/07/2022 12:47 PM CDT HOSPITALIST PROGRESS NOTE Patient Name: Consuelo Darby : 1980 Medical Record: [id number] ATTENDING Yamileth Frias MD SUBJECTIVE 11/19 The patient is being seen for follow-up of Cerebrovascular accident. BP, BS , HR, labs, strength. .Chief Complaint CT head ok Headache much better Got upto chair without helmet =did ok Working on better helmet Consider spinal headache if recurs- d/w dr Villagran strength improving, able to do therapy ok. No chest pain, no SOB, no dizziness, no palpitations, no new neurologic symptoms. No cough, No nausea or vomiting, No abdominal pain. History also obtained from Nurse and staff about how the patient did overnight and during the day strength improving, able to do therapy ok. 11/20 Patient seen an examined Doing alright No new issues to report Vitals reviewed 11/21 Patient seen and examined earlier No new issues to report Vitals reviewed Resting comfortably 11/22 Patient seen and examined Doing alright at this time Resting comfortably Vitals reviewed 11/23 The patient was seen in the room this afternoon. The patient currently does not report any chest pain, shortness present nausea or vomiting No reported issues from the floor nurse. The most recent labs and vital signs were reviewed. 11/24: Patient seen and examined this morning. Patient complaining of bilateral hip pain. Have placed order for Flexeril and lidocaine patch. No acute events reported overnight. Blood work and vital signs remained stable. Continue current medical management. 11/25: Patient seen and examined this morning. Patient continues to complain of bilateral hip pain. Continue lidocaine patches. Have scheduled Flexeril 5 mg t.i.d.. Continue current medical management. 11/26: Patient seen and examined this morning. Patient continues to complain of hip pain. Follow up left hip x-ray. Follow up with PM&R for further recommendations. Continue Lovenox. Have discussed Coumadin dosing with pharmacy. Goal to have INR from 2-3. No acute events reported overnight. Continue current medical management. 11/27:Patient seen and examined this morning. Vitals and labs reviewed. Resting comfortably. No acute events overnight. Continue current medical management. 11/30 Patient seen and examined Doing ok. No new issues to report 12/01 Patient seen and examined earlier this afternoon. Things are going well. No new issues to report. 12/02:Patient seen and examined this morning. Vitals and labs reviewed. Resting comfortably. No acute events overnight. Continue current medical management. 12/03: Patient seen and examined this morning. Patient complaining of sharp shooting pain around herleft hip area. Have started gabapentin 300 mg t.i.d.. Vital signs and blood work reviewed. INR at goal. Continue current medical management. 12/04 Patient seen and examined. Doing ok at this time. No new issues to report. Vitals reviewed. 12/05 Patient seen and examined earlier today. Doing alright. No new issues to report. Vitals reviewed. Having pain in hip. Discussed with dr. Frias 12/06 Patient seen and examined. Doing alright currently. No new issues to report. Vitals reviewed. 12/07 Patient seen and examined today. Doing alright. No new issues to report. Vitals reviewed. BRIEF HISTORY The patient is a 42 y.o. y/o female with history of HTN, GERD, presented tO ED with new left sided weakness and slurred speech Diagnosed with acute CVA s/p TNK and m1 occlusion S/P MT . c/b R iliac and common femoral artery occlusion s/p thrombectomy. Developed Fever: consulted ID, minen abx, Cxs. - MRI brain w/wo done (11/10): cortical enhancement along the right frontal parietal and temporal regions 2/2 infarct progression but can't rule out cerebritis or infections.however LP neg. Also had glenis PEG fluid collection: Improved on abx - Urology replaced puentes (11/09-) Extubated, now on RA HOME Medications Prior to Admission medications Medication Sig Start Date End Date Taking? Authorizing Provider cetirizine (ZyrTEC) 10 MG tablet Take 1 tablet (10 mg total) by mouth in the morning. Yes Historical Provider, omeprazole (PriLOSEC) 20 MG capsule Take 1 capsule (20 mg total) by mouth in the morning. Yes Historical Provider, amitriptyline (ELAVIL) 50 MG tablet 2 tablets (100 mg total) nightly. Historical Provider, CURRENT Medications Current Facility-Administered Medications: acetaminophen (TYLENOL) tablet 500 mg, 500 mg, Per Tube, Q6H PRN, Nghia Pryor MD, 500 mg at 12/07/22 1353 baclofen (LIORESAL) tablet 5 mg, 5 mg, Oral, Nightly, Yamileth Frias MD, 5 mg at 12/07/222200 bethanechol (URECHOLINE) tablet 25 mg, 25 mg, Oral, 3 times per day, Yamileth Frias MD, 25 mg at 12/08/22817 bisacodyl (DULCOLAX) suppository 10 mg, 10 mg, Rectal, Daily PRN, Yamileth Frias MD, 10 mg at 12/06/221820 cefdinir (OMNICEF) capsule 300 mg, 300 mg, Oral, 2 times per day, Nghia Pryor MD, 300 mg at 12/08/22817 cholecalciferol (VITAMIN D3) tablet 2,000 Units, 2,000 Units, Per Tube, Once a day, Nghia Pryor MD, 2,000 Units at 12/08/22817 cyclobenzaprine (FLEXERIL) tablet 5 mg, 5 mg, Oral, 3 times per day, Loy Dawson MD, 5 mg at 12/08/22817 gabapentin (NEURONTIN) capsule 300 mg, 300 mg, Oral, 3 times per day, Loy Dawson MD, 300 mg at 12/08/22817 guaiFENesin (ROBITUSSIN) 100 MG/5ML liquid 10 mL, 10 mL, Enteral, BID PRN, Nghia Pryor MD hydrocortisone (ANUSOL-HC) 2.5 % rectal cream, , Rectal, 2 times per day, Loy Dawson MD, Given at 12/07/222201 hydrOXYzine (ATARAX) tablet 25 mg, 25 mg, Oral, Q6H PRN, Yamileth Frias MD, 25 mg at 12/07/222200 lidocaine (LIDOCARE) 4 % patch 1 patch, 1 patch, Transdermal, Once a day, Loy Dawson MD, 1 patch at 12/08/22816 lidocaine (XYLOCAINE) 1 % injection 8 mL, 8 mL, Other, Once, Yamileth Frias MD loratadine (CLARITIN) tablet 10 mg, 10 mg, Enteral, Once a day, Nghia Pryor MD, 10 mg at 12/08/22817 metoprolol tartrate (LOPRESSOR) tablet 25 mg, 25 mg, Enteral, 2 times per day, Nghia Pryor MD, 25 mg at 12/08/22 0818 muscle rub (ICY HOT) 10-15 % cream, , Topical, 3 times per day, Yamileth Frias MD, Given at 12/08/22 0820 ondansetron ODT (ZOFRAN-ODT) disintegrating tablet 4 mg, 4 mg, Per Tube, Q6H PRN, Marlee Bradley MD, 4 mg at 12/07/22 1032 oxyCODONE (ROXICODONE) immediate release tablet 5 mg, 5 mg, Enteral, Q4H PRN, Marlee Bradley MD, 5mg at 12/08/22 0821 oxyCODONE (ROXICODONE) immediate release tablet 5 mg, 5 mg, Oral, Daily at 0600, Yamileth Frias MD, 5 mg at 12/08/22 0556 pantoprazole-sodium bicarbonate 2mg/ml oral liquid 40 mg, 40 mg, Per Tube, Daily bef breakfast, Marlee Bradley MD, 40 mg at 12/08/22 0606 polyethylene glycol (MIRALAX) packet 17 g, 17 g, Per Tube, BID PRN, Yamileth Frias MD senna-docusate (SENOKOT-S) 8.6-50 MG tablet 2 tablet, 2 tablet, Enteral, Daily PRN, Yamileth Frias MD simethicone (MYLICON) chewable tablet 80 mg, 80 mg, Per Tube, BID PRN, Marlee Bradley MD, 80 mg at11/28/222051 tamsulosin (FLOMAX) 24 hr capsule 0.4 mg, 0.4 mg, Enteral, After Breakfast, Nghia Pryor MD, 0.4 mg at 12/08/22816 triamcinolone (KENALOG) 0.1 % ointment, , Apply externally, BID PRN, Nghia Pryor MD, Given at 11/20/222014 triamcinolone acetonide (KENALOG-40) injection 80 mg, 80 mg, Intra-articular, Once, Yamileth Frias MD verapamil (CALAN) tablet 40 mg, 40 mg, Enteral, Q8H SENDY, Nghia Pryor MD, 40 mg at 12/08/22 0556 Warfarin Per Policy, , Does not apply, Daily, Nghia Pryor MD warfarin tablet 3 mg, 3 mg, Oral, Once FOLLOWED BY [START ON 12/09/2022] warfarin tablet 4 mg, 4mg, Oral, Daily, Nghia Pryor MD DATA Vitals: 12/07/22 0721 12/07/22 1920 12/08/22 0400 12/08/22 0712 BP: 118/74 98/63 112/75 Pulse: 83 78 77 Resp: 17 18 Temp: 97.9 ??F (36.6 ??C) 97.7 ??F (36.5 ??C) 98.6 ??F (37 ??C) TempSrc: Oral Oral Oral SpO2: 94% 97% 95% Weight: 191 lb (86.6 kg) Height: 5' 4 (1.626 m) Weights (last 3 days) Date/Time Weight Height BSA (Calculated - sq m) 12/08/22 0400 191 lb (86.6 kg) 5' 4 (1.626 m) 1.98 sq meters @ANTICOAGSUMMARY@ @FLOWDATE(2706:LAST)@ Intake/Output Summary (Last 24 hours) at 12/08/2022 1247 Last data filed at 12/08/2022 0810 Gross per 24 hour Intake 1030 ml Output 1250 ml Net -220 ml PHYSICAL EXAM General appearance: awake, alert, cooperative, no distress HEENT: Normocephalic, No icterus, No oral lesions, Oral and nasal mucosa moist Neck: Supple, no lymphadenopathy Eyes: EOMI, Conjunctiva normal, No discharge Cardiovascular: Normal heart rate, Normal rhythm, No murmurs, No rubs, No gallops Respiratory: Normal breath sounds, No respiratory distress, No wheezing, No rhonchi, No rales, No chest tenderness. GI: Bowel sounds normal, Soft, No tenderness, No rebound or guarding, No masses. Abdomen: soft without mass, non-tender, with normal bowel sounds Extremities: no clubbing, cyanosis or edema, no calf tenderness Musculoskeletal:no swelling of joints.no redness Psychologic: Mood ok, no suicidal ideation. Skin: No rash. 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 LABS CBC with Differential: Lab Results Component Value Date WBC 7.3 12/07/2022 HGB 10.2 (L) 12/07/2022 HCT 32.1 (L) 12/07/2022 PLT 319 12/07/2022 MCV 93.6 12/07/2022 MCH 29.7 12/07/2022 MCHC 31.8 12/07/2022 RDW 15.2 (H) 12/07/2022 [ BMP: Lab Results Component Value Date NA 138 12/07/2022 K 3.6 12/07/2022 CL 101 12/07/2022 CO2 23 12/07/2022 BUN 8 12/07/2022 CREATININE 0.76 12/07/2022 GLUCOSE 164 (H) 12/07/2022 CALCIUM 9.3 12/07/2022 ANIONGAP 14 12/07/2022 MG/PHOS: No results found for: MG, PHOS CKMB: No components found for: CKMB;2 PT/INR: Lab Results Component Value Date INR 2.4 (H) 12/07/2022 BNP: No results found for: BNP Last 3 Troponin: No components found for: TROPONINI;3 U/A: Lab Results Component Value Date COLORU [place] (A) 12/06/2022 CLARITYU Turbid (A) 12/06/2022 GLUCOSEU Negative 12/06/2022 BILIRUBINUR Negative 12/06/2022 KETONESU Negative 12/06/2022 UROBILINOGEN 4.0 (A) 12/06/2022 MUCUS 4+ 12/06/2022 RBCUA 21-50 (A) 12/06/2022 WBCUA >100 (A) 12/06/2022 CMP: Lab Results Component Value Date NA 138 12/07/2022 K 3.6 12/07/2022 CL 101 12/07/2022 CO2 23 12/07/2022 BUN 8 12/07/2022 CREATININE 0.76 12/07/2022 GLUCOSE 164 (H) 12/07/2022 CALCIUM 9.3 12/07/2022 ANIONGAP 14 12/07/2022 LFT's: No results found for: ALB, PROT Ionized Calcium: No components found for: IONCA ABG: No results found for: PHART, [id number], PO2ART, [id number], BEART, [id number] HgBA1c: No results found for: HGBA1C Lipid Panel: No results found for: CHOL, TRIG, HDL TSH: No results found for: TSH Lab Results Component Value Date GLUCOSE 164 (H) 12/07/2022 BUN 8 12/07/2022 CREATININE 0.76 12/07/2022 NA 138 12/07/2022 K 3.6 12/07/2022 CL 101 12/07/2022 CO2 23 12/07/2022 CALCIUM 9.3 12/07/2022 @RESU CBC: Recent Labs Lab Units 12/07/22 0015 WBC X(10)9/L BLOOD x10E9/L 7.3 HGB GM/DL BLOOD gm/dL 10.2* PLT CT X(10)9/L BLOOD x10E9/L 319 MCV FL BLOOD fl 93.6 BMP: Recent Labs Lab Units 12/07/22 0015 SODIUM MMOL/L BLOOD mmol/L 138 POTASSIUM MMOL/L BLOOD mmol/L 3.6 CHLORIDE mmol/L 101 CO2 mmol/L 23 BUN MG/DL BLOOD mg/dL 8 CREATININE mg/dL 0.76 GLUCOSE MG/DL BLOOD mg/dL 164* CALCIUM MG/DL BLOOD mg/dL 9.3 I reviewed the EKG tracing/Xray Recent Labs Lab Units 12/07/22 0015 SODIUM MMOL/L BLOOD mmol/L 138 POTASSIUM MMOL/L BLOOD mmol/L 3.6 CHLORIDE mmol/L 101 CO2 mmol/L 23 BUN MG/DL BLOOD mg/dL 8 CREATININE mg/dL 0.76 GLUCOSE MG/DL BLOOD mg/dL 164* CALCIUM MG/DL BLOOD mg/dL 9.3 ANION GAP BLOOD mmol/L 14 ASSESSMENT AND PLAN Principal Problem: Cerebrovascular accident Acute R MCA CVA Left hemiplegia /p TNK and MT and TICI2b revascularization on 10/19. Developed MCA syndrome s/p hemicrani. 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 - MRI brain w/wo done (9/1): cortical enhancement along the right frontal parietal and temporal regions 2/2 infarct progression but can't rule out cerebritis or infections.LP not concerning, however. -- glenis PEG fluid collection: Improved on abx - Urology replaced puentes (11/09-) TTE showed mobile aortic valve vegetation. IV abxs HTN Continue meds Migraine without aura Pian control GERD PPI Oral contraceptive use DVT Prophylaxis Obesity BMI 36 Nutrition consult Abn LFT Check hep screen Watch with statin D Pain management Today's pain score FEN. Nutrition consult for evaluation of nutritional status and the best diet. And for BMI evaluation and education regarding maintaining a healthy BMI Bladder management Voiding ok Bowel management . Titrate bowel medications for constipation/diarrhea. Skin. Nursing to address skin care throughout stay. Turn every 2 hrs Sleep. Monitor sleep-wake cycle. High Fall risk- Fall precautions GI Prophylaxis: DVT Prophylaxis: Full Resuscitation D/W patient , and attending physician about test results and treatment plan .No family in the room.Patient requiring monitoring of BP and HR while doing 3 hour intensive exercises to avoid fluctuations and hypotension . Aswell as monitoring of nutritional and fluid status , by weights, leg edema .Notified staff and patient to notify me of any change inconditions or new problems Electronically signed by: NGHIA PRYOR MD, at ok ok basically DUI may be GI need a I diving lysis consult subacute S do * Yamileth Frias MD - 12/07/2022 10:35 AM CDT PM&R PROGRESS NOTE This is Face to Face Visit note Consuelo Darby is a 42 y.o. female patient. tired today, Pain in hip to left Able to participate in therapy . Benefit from continued therapy REVIEW OF FUNCTIONAL STATUS SM Functional Status PT Data (since 12/04/2022) Value Time User Bed Mobility Comment Sit to supine on mat with mod/max of one and min/mod of another for lift at trunk and control of left leg. Rolled to right sidelying with max assist and min of another, increased support of left leg due to radiating left hip pain. Positioned in right sidelying with 3 pillows between legs. Rolls left with min/mod assist this date. Supine back to sit with mod of two for left side and trunk. 12/06/2022 8:53 AM Kellie Moran, PT Gait Analysis Sling to support left UE. Francisco wrap to assist left ankle into DF. Helmet in place Use of sonya-aid on right. Pt ambulated 5steps with max on left to advance and block left leg, min on right for cane management, and balance. W/c follow Distance limited due to left hip pain, fatigue, balance. 12/06/2022 1:22 PM Kellie Moran, PT WC Analysis Pt tolerated light wt w/c, contoured back, left half lap tray. Recommended DME: w/c consult through [facility]. Recommend manual light weight w/c for home use at discharge as Ms. Darby is not functionally ambulating at this time, w/c will be her primary mode of mobility. Recomment Catalyst 4C 20inches wide by 18 inches deep to provide appropriate hip positioning. Acta-Back [id number] to provide appropriate lateral trunk support, control left list, faciliate midline trunk and head control due to left hemiparesis, left inattention and right gaze preference. Recommend footplate leg rests with heel loops for safe foot positioning due to left leg flexion posturing at times. Push locks with extension handles to allow application by pt with right UE, and removal of extension for transfer board transfers as able. Recommend pneumatic wheels with airless inserts for improved maintenance and ease. Ms. Darby will benefit from height adjustable, flip back arm rests due to recommend half lap tray on left for UE support. Requires adjustable height to provide appropriate left UE support, control shoulder subluxation/safety. Left half lap tray to provide appropriate support for hemiparetic left upper extremity. Flip back armrests required due to use of transfer board for transfers at times, varies with fatigue. Anti tippers and pelvic positioning belt needed for safety, pt can self propel with right leg with some assist, potential to push chair back and hips slide anterior. Pressure relieving cushion: recommend vicair-adjuster electrical contacts O2 low cushion with incontinence cover- pt will have prolonged sitting, non-functional ambulator at this time and will benefit from pressure relieving cushion to prevent pressure ulcers. A rigid insert will be beneficial for pelvic positioning, control left leg internal rotation, maintain neutral positioning, improve left hip pain. 12/06/2022 1:53 PM Kellie Moran, PT Functional Status OT Data (since 12/04/2022) None Patient Active Problem List Diagnosis Cerebrovascular accident Hypertension Past Medical History: Diagnosis Date Gastroesophageal reflux disease Hypertension Migraine Current Facility-Administered Medications: acetaminophen (TYLENOL) tablet 500 mg, 500 mg, Per Tube, Q6H PRN, Nghia Pryor MD, 500 mg at 12/05/22 1339 baclofen (LIORESAL) tablet 5 mg, 5 mg, Oral, Nightly, Yamileth Frias MD, 5 mg at 12/06/222024 bethanechol (URECHOLINE) tablet 25 mg, 25 mg, Oral, 3 times per day, Yamileth Frias MD, 25 mg at 12/07/22 0848 bisacodyl (DULCOLAX) suppository 10 mg, 10 mg, Rectal, Daily PRN, Yamileth Frias MD, 10 mg at 12/06/22 182 cholecalciferol (VITAMIN D3) tablet 2,000 Units, 2,000 Units, Per Tube, Once a day, Nghia Pryor MD, 2,000 Units at 12/07/22 0847 cyclobenzaprine (FLEXERIL) tablet 5 mg, 5 mg, Oral, 3 times per day, Loy Dawson MD, 5 mg at 12/07/22 0848 gabapentin (NEURONTIN) capsule 300 mg, 300 mg, Oral, 3 times per day, Loy Dawson MD, 300 mg at 12/07/22 0848 guaiFENesin (ROBITUSSIN) 100 MG/5ML liquid 10 mL, 10 mL, Enteral, BID PRN, Nghia Pryor MD hydrocortisone (ANUSOL-HC) 2.5 % rectal cream, , Rectal, 2 times per day, Loy Dawson MD, Given at 12/06/222025 hydrOXYzine (ATARAX) tablet 25 mg, 25 mg, Oral, Q6H PRN, Yamileth Frias MD, 25 mg at 12/04/22 0139 lidocaine (LIDOCARE) 4 % patch 1 patch, 1 patch, Transdermal, Once a day, Loy Dawson MD, 1 patch at 12/07/22 0847 lidocaine (XYLOCAINE) 1 % injection 8 mL, 8 mL, Other, Once, Yamileth Frias MD loratadine (CLARITIN) tablet 10 mg, 10 mg, Enteral, Once a day, Nghia Pryor MD, 10 mg at 12/07/22 0848 metoprolol tartrate (LOPRESSOR) tablet 25 mg, 25 mg, Enteral, 2 times per day, Nghia Pryor MD, 25 mg at 12/07/22 0848 muscle rub (ICY HOT) 10-15 % cream, , Topical, 3 times per day, Yamileth Frias MD, Given at 12/07/22 0849 ondansetron ODT (ZOFRAN-ODT) disintegrating tablet 4 mg, 4 mg, Per Tube, Q6H PRN, Marlee Bradley MD, 4 mg at 12/07/22 1032 oxyCODONE (ROXICODONE) immediate release tablet 5 mg, 5 mg, Enteral, Q4H PRN, Marlee Bradley MD, 5mg at 12/07/22 0849 oxyCODONE (ROXICODONE) immediate release tablet 5 mg, 5 mg, Oral, Daily at 0600, Yamileth Frias MD, 5 mg at 12/07/22 0510 pantoprazole-sodium bicarbonate 2mg/ml oral liquid 40 mg, 40 mg, Per Tube, Daily bef breakfast, Marlee Bradley MD, 40 mg at 12/07/22 0535 polyethylene glycol (MIRALAX) packet 17 g, 17 g, Per Tube, BID PRN, Yamileth Frias MD senna-docusate (SENOKOT-S) 8.6-50 MG tablet 2 tablet, 2 tablet, Enteral, Daily PRN, Yamileth Frias MD simethicone (MYLICON) chewable tablet 80 mg, 80 mg, Per Tube, BID PRN, Marlee Bradley MD, 80 mg at11/28/222051 tamsulosin (FLOMAX) 24 hr capsule 0.4 mg, 0.4 mg, Enteral, After Breakfast, Nghia Pryor MD, 0.4 mg at 12/07/22 0847 triamcinolone (KENALOG) 0.1 % ointment, , Apply externally, BID PRN, Nghia Pryor MD, Given at 11/20/222014 [START ON 12/08/2022] triamcinolone acetonide (KENALOG-40) injection 80 mg, 80 mg, Intra-articular, Once, Yamileth Frias MD verapamil (CALAN) tablet 40 mg, 40 mg, Enteral, Q8H SENDY, Nghia Pryor MD, 40 mg at 12/07/22 0510 Warfarin Per Policy, , Does not apply, Daily, Nghia Pryor MD [COMPLETED] warfarin tablet 3 mg, 3 mg, Oral, Once, 3 mg at 12/05/22 1843 FOLLOWED BY warfarin tablet 4 mg, 4 mg, Oral, Daily, Nghia Pryor MD, 4 mg at 12/06/22 1732 Review of Systems: Review of Systems Constitutional: Negative for appetite change. HENT: Negative for congestion. Respiratory: Negative for shortness of breath. Cardiovascular: Positive for leg swelling. Genitourinary: Negative for flank pain. Musculoskeletal: Negative for arthralgias and joint swelling. Neurological: Negative for headaches. Psychiatric/Behavioral: The patient is nervous/anxious. Physical Exam Vitals: 12/07/22 0721 BP: 118/74 Pulse: 83 Resp: 17 Temp: 97.9 ??F (36.6 ??C) SpO2: 94% Physical Exam Constitutional: General: She is not in acute distress. HENT: Head: Atraumatic. Eyes: Conjunctiva/sclera: Conjunctivae normal. Cardiovascular: Rate and Rhythm: Normal rate. Pulmonary: Effort: Pulmonary effort is normal. Abdominal: General: There is no distension. Skin: Findings: No erythema. Neurological: Coordination: Coordination abnormal. Neurologic Exam Lab Data Reviewed current lab results available to me today. Lab Results Component Value Date WBC 7.3 12/07/2022 HGB 10.2 (L) 12/07/2022 HCT 32.1 (L) 12/07/2022 MCV 93.6 12/07/2022 PLT 319 12/07/2022 Lab Results Component Value Date GLUCOSE 164 (H) 12/07/2022 CALCIUM 9.3 12/07/2022 NA 138 12/07/2022 K 3.6 12/07/2022 CO2 23 12/07/2022 CL 101 12/07/2022 BUN 8 12/07/2022 CREATININE 0.76 12/07/2022 ANIONGAP 14 12/07/2022 Imaging Reviewed current imaging results available to me today. XR abdomen 1 vws Result Date: 11/19/2022 NARRATIVE: Procedure: XR ABDOMEN KUB Exam Date: 11/19/2022 9:38 AM Location: [facility] Indication: abdominal fullness, reflux. Patient on peg tube feeding FINDINGS/IMPRESSION: Air is seen throughout the colonic structures. No dilated bowel loops are identified. There is no evidence tosuggest obstruction. There is no gross free intraperitoneal air. There does appear to be a gastrostomy tube superimposing the stomach. > Interpreting Provider: Rebel Hernandez MD on 11/19/2022 9:[address] head WO contrast Result Date: 11/19/2022 NARRATIVE: Procedure: CT HEAD WO CONTRAST Exam Date: 11/19/2022 9:31 AM Location: [facility] CT head without IV contrast INDICATION: worsening pain TECHNIQUE: CT examination of the head was performed from the base of the skull through the vertex using multiple axial images without IV contrast. FINDINGS: No old studies are available for comparison purposes. VIZ AI was utilized. Patient is status post right-sided craniectomy. There is extensive encephalomalacia involving the right frontal lobe with with some minimal involvement of the temporal and parietal lobe. There is no acute infarct. There is no mass. There is no hemorrhage. There are no extra-axial fluid collections. There is no midline shift. IMPRESSION: IMPRESSION: Right frontal craniectomy with extensive encephalomalacia involving the right frontal lobe as well as some involvement of the parietal and temporal lobes. > Interpreting Provider: Rebel Hernandez MD on 11/19/2022 9:36 AM Assessment & Plan: Consuelo Darby is a 42 y.o. female patient with Cerebrovascular accident functional impairment for rehab Cerebrovascular accident PT, OT for gait training and ADL training, Nursing for bowel and bladder care. Speech therapy for swallow evaluation and cognitive evaluation. Acute R MCA CVA Left dense hemiplegia LUE / LLE : 0/5 Left face droop Left neglect Spasticity: SENDY Baclofen 5 mg HS and flexeril TID SENDY Oxy before therapy from 12/02 Left hip pain - XR on 08/05 Left GT bursitis: Plan for injection tomorrow Muscle rub SENDY s/p TNK and MT and TICI2b revascularization on 10/19. 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 S /P IV abxs HTN Continue metoprolol , verapamil # headaches: On Tylenol and Oxy PRN Pian control # Neurogenic bladder: puentes placed on 12/04 but put removed on 12/05 Voiding trials today Urology consult Flomax HS Urecholine 25 mg TID from 11/27 Skin/Wounds: - Skin integrity and Pressure ulcer prevention: frequent repositioning and adequate pressure relief. Maintain clean, dry skin. If needed, q2 hour turns when in bed and regular skin checks, application of protective barrier cream, toileting schedule. Wound RN consult Bowel & Bladder - monitor bowel movement - adjust scheduled and PRN bowel regimen as needed - monitor for adequate urinary output - should suspicion for urinary retention arise, PVR of random bladder scan will be performed for further assessment Continue current medical management. RECOMMENDATIONS At the current time, this inpatient hospital rehabilitation stay is medically necessary to achieve important health and functional goals. The patient requires frequent physician visits, 24-hour rehabilitation nursing, and a coordinated intensive rehabilitation program as described above to address complex medical, nursing, and rehabilitation needs. Continue inpatient comprehensive interdisciplinary rehabilitation to address strengthening, mobility skills, self care, cognitive functioning, speech, communication and swallowing needs. The patient continues to require the interdisciplinary team approach and 24 hour monitoring. DIET: Dietary Orders (From admission, onward) Start Ordered 12/06/22 1027 Adult Diet Regular; 6 Soft & Bite-Sized (NDD III); 0 Thin (All Liquids) Diet effective now End/Expires: Until Specified References: [employer] Website Question Answer Comment Diet Type: Regular Diet Texture: 6 Soft & Bite-Sized (NDD III) Liquid Consistency: 0 Thin (All Liquids) Place order in third green party system. Done 12/06/22 1026 12/06/22 0858 Jevity 1.5; Tube Feeding Bolus (mL): 240; Tube Feeding Bolus frequency: if po intake < 50% meals; Tube Feeding water flush (mL): 50; Water flush frequency: Every 4 hours Diet effective now Comments: Decrease free water flush to 50 mL every 4 hours End/Expires: Until Specified Question Answer Comment Tube Feeding Formula: Jevity 1.5 Tube Feeding Bolus (mL): 240 Tube Feeding Bolus frequency: if po intake < 50% meals Tube Feeding water flush (mL): 50 Water flush frequency: Every [address] order in third green party system. Done 12/06/22 0857 11/29/22 1700 Nutritional supplement Magic Cup; Oral 3 times daily with meals Comments: Send chocolate Thrive TID End/Expires: Until Specified Question Answer Comment Select Supplement: Magic Cup Administration Route: Oral Place order in third green party system. Done 11/29/22 1250 Patient Active Problem List Diagnosis Cerebrovascular accident Hypertension # Vision deficits: Hand Rigger following CHIN: DI YAMILETH FRIAS MD * Nghia Pryor MD - 12/06/2022 9:24 PM CDT HOSPITALIST PROGRESS NOTE Patient Name: Consuelo Darby : 1980 Medical Record: [id number] ATTENDING Yamileth Frias MD SUBJECTIVE 11/19 The patient is being seen for follow-up of Cerebrovascular accident. BP, BS , HR, labs, strength. .Chief Complaint CT head ok Headache much better Got upto chair without helmet =did ok Working on better helmet Consider spinal headache if recurs- d/w dr Villagran strength improving, able to do therapy ok. No chest pain, no SOB, no dizziness, no palpitations, no new neurologic symptoms. No cough, No nausea or vomiting, No abdominal pain. History also obtained from Nurse and staff about how the patient did overnight and during the day strength improving, able to do therapy ok. 11/20 Patient seen an examined Doing alright No new issues to report Vitals reviewed 11/21 Patient seen and examined earlier No new issues to report Vitals reviewed Resting comfortably 11/22 Patient seen and examined Doing alright at this time Resting comfortably Vitals reviewed 11/23 The patient was seen in the room this afternoon. The patient currently does not report any chest pain, shortness present nausea or vomiting No reported issues from the floor nurse. The most recent labs and vital signs were reviewed. 11/24: Patient seen and examined this morning. Patient complaining of bilateral hip pain. Have placed order for Flexeril and lidocaine patch. No acute events reported overnight. Blood work and vital signs remained stable. Continue current medical management. 11/25: Patient seen and examined this morning. Patient continues to complain of bilateral hip pain. Continue lidocaine patches. Have scheduled Flexeril 5 mg t.i.d.. Continue current medical management. 11/26: Patient seen and examined this morning. Patient continues to complain of hip pain. Follow up left hip x-ray. Follow up with PM&R for further recommendations. Continue Lovenox. Have discussed Coumadin dosing with pharmacy. Goal to have INR from 2-3. No acute events reported overnight. Continue current medical management. 11/27:Patient seen and examined this morning. Vitals and labs reviewed. Resting comfortably. No acute events overnight. Continue current medical management. 11/30 Patient seen and examined Doing ok. No new issues to report 12/01 Patient seen and examined earlier this afternoon. Things are going well. No new issues to report. 12/02:Patient seen and examined this morning. Vitals and labs reviewed. Resting comfortably. No acute events overnight. Continue current medical management. 12/03: Patient seen and examined this morning. Patient complaining of sharp shooting pain around herleft hip area. Have started gabapentin 300 mg t.i.d.. Vital signs and blood work reviewed. INR at goal. Continue current medical management. 12/04 Patient seen and examined. Doing ok at this time. No new issues to report. Vitals reviewed. 12/05 Patient seen and examined earlier today. Doing alright. No new issues to report. Vitals reviewed. Having pain in hip. Discussed with dr. Frias 12/06 Patient seen and examined. Doing alright currently. No new issues to report. Vitals reviewed. BRIEF HISTORY The patient is a 42 y.o. y/o female with history of HTN, GERD, presented tO ED with new left sided weakness and slurred speech Diagnosed with acute CVA s/p TNK and m1 occlusion S/P MT . c/b R iliac and common femoral artery occlusion s/p thrombectomy. Developed Fever: consulted ID, shanna abx, Cxs. - MRI brain w/wo done (11/10): cortical enhancement along the right frontal parietal and temporal regions 2/2 infarct progression but can't rule out cerebritis or infections.however LP neg. Also had glenis PEG fluid collection: Improved on abx - Urology replaced puentes (11/09-) Extubated, now on RA HOME Medications Prior to Admission medications Medication Sig Start Date End Date Taking? Authorizing Provider cetirizine (ZyrTEC) 10 MG tablet Take 1 tablet (10 mg total) by mouth in the morning. Yes Historical Provider, omeprazole (PriLOSEC) 20 MG capsule Take 1 capsule (20 mg total) by mouth in the morning. Yes Historical Provider, amitriptyline (ELAVIL) 50 MG tablet 2 tablets (100 mg total) nightly. Historical Provider, CURRENT Medications Current Facility-Administered Medications: acetaminophen (TYLENOL) tablet 500 mg, 500 mg, Per Tube, Q6H PRN, Nghia Pryor MD, 500 mg at 12/05/22 1339 baclofen (LIORESAL) tablet 5 mg, 5 mg, Oral, Nightly, Yamileth Frias MD, 5 mg at 12/06/222024 bethanechol (URECHOLINE) tablet 25 mg, 25 mg, Oral, 3 times per day, Yamileth Frias MD, 25 mg at 12/06/222024 bisacodyl (DULCOLAX) suppository 10 mg, 10 mg, Rectal, Daily PRN, Yamileth Frias MD, 10 mg at 12/06/221820 cholecalciferol (VITAMIN D3) tablet 2,000 Units, 2,000 Units, Per Tube, Once a day, Nghia Pryor MD, 2,000 Units at 12/06/22904 cyclobenzaprine (FLEXERIL) tablet 5 mg, 5 mg, Oral, 3 times per day, Loy Dawson MD, 5 mg at 12/06/222024 gabapentin (NEURONTIN) capsule 300 mg, 300 mg, Oral, 3 times per day, Loy Dawson MD, 300 mg at 12/06/222024 guaiFENesin (ROBITUSSIN) 100 MG/5ML liquid 10 mL, 10 mL, Enteral, BID PRN, Nghia Pryor MD hydrocortisone (ANUSOL-HC) 2.5 % rectal cream, , Rectal, 2 times per day, Loy Dawson MD, Given at 12/06/222025 hydrOXYzine (ATARAX) tablet 25 mg, 25 mg, Oral, Q6H PRN, Yamileth Frias MD, 25 mg at 12/04/22138 lidocaine (LIDOCARE) 4 % patch 1 patch, 1 patch, Transdermal, Once a day, Loy Dawson MD, 1 patch at 12/06/22902 loratadine (CLARITIN) tablet 10 mg, 10 mg, Enteral, Once a day, Nghia Pryor MD, 10 mg at 12/06/22905 metoprolol tartrate (LOPRESSOR) tablet 25 mg, 25 mg, Enteral, 2 times per day, Nghia Pryor MD, 25 mg at 12/06/222025 muscle rub (ICY HOT) 10-15 % cream, , Topical, 3 times per day, Yamileth Frias MD, Given at 12/06/222025 ondansetron ODT (ZOFRAN-ODT) disintegrating tablet 4 mg, 4 mg, Per Tube, Q6H PRN, Marlee Bradley MD, 4 mg at 12/04/22 013 oxyCODONE (ROXICODONE) immediate release tablet 5 mg, 5 mg, Enteral, Q4H PRN, Marlee Bradley MD, 5mg at 12/06/22 1732 oxyCODONE (ROXICODONE) immediate release tablet 5 mg, 5 mg, Oral, Daily at 0600, Yamileth Frias MD, 5 mg at 12/06/22 0558 pantoprazole-sodium bicarbonate 2mg/ml oral liquid 40 mg, 40 mg, Per Tube, Daily bef breakfast, Marlee Bradley MD, 40 mg at 12/06/22 0559 polyethylene glycol (MIRALAX) packet 17 g, 17 g, Per Tube, BID PRN, Yamileth Frias MD senna-docusate (SENOKOT-S) 8.6-50 MG tablet 2 tablet, 2 tablet, Enteral, Daily PRN, Yamileth Frias MD simethicone (MYLICON) chewable tablet 80 mg, 80 mg, Per Tube, BID PRN, Marlee Bradley MD, 80 mg at11/28/222051 tamsulosin (FLOMAX) 24 hr capsule 0.4 mg, 0.4 mg, Enteral, After Breakfast, Nghia Pryor MD, 0.4 mg at 12/06/22904 triamcinolone (KENALOG) 0.1 % ointment, , Apply externally, BID PRN, Nghia Pryor MD, Given at 11/20/222014 verapamil (CALAN) tablet 40 mg, 40 mg, Enteral, Q8H SENDY, Nghia Pryor MD, 40 mg at 12/06/22 1438 Warfarin Per Policy, , Does not apply, Daily, Nghia Pryor MD [COMPLETED] warfarin tablet 3 mg, 3 mg, Oral, Once, 3 mg at 12/05/22 1843 FOLLOWED BY warfarin tablet 4 mg, 4 mg, Oral, Daily, Nghia Pryor MD, 4 mg at 12/06/22 1732 DATA Vitals: 12/06/22 0856 12/06/22 1104 12/06/22 1438 12/06/22 1945 BP: 96/62 96/62 122/80 103/68 Pulse: 84 84 90 Resp: 18 18 Temp: 98.3 ??F (36.8 ??C) 97.5 ??F (36.4 ??C) TempSrc: Oral Oral SpO2: 92% 97% Weight: Height: Weights (last 3 days) None @ANTICOAGSUMMARY@ @FLOWDATE(2706:LAST)@ Intake/Output Summary (Last 24 hours) at 12/06/20222123 Last data filed at 12/06/2022 1810 Gross per 24 hour Intake 1350 ml Output 1420 ml Net -70 ml PHYSICAL EXAM General appearance: awake, alert, cooperative, no distress HEENT: Normocephalic, No icterus, No oral lesions, Oral and nasal mucosa moist Neck: Supple, no lymphadenopathy Eyes: EOMI, Conjunctiva normal, No discharge Cardiovascular: Normal heart rate, Normal rhythm, No murmurs, No rubs, No gallops Respiratory: Normal breath sounds, No respiratory distress, No wheezing, No rhonchi, No rales, No chest tenderness. GI: Bowel sounds normal, Soft, No tenderness, No rebound or guarding, No masses. Abdomen: soft without mass, non-tender, with normal bowel sounds Extremities: no clubbing, cyanosis or edema, no calf tenderness Musculoskeletal:no swelling of joints.no redness Psychologic: Mood ok, no suicidal ideation. Skin: No rash. 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 LABS CBC with Differential: Lab Results Component Value Date WBC 8.2 12/04/2022 HGB 10.2 (L) 12/04/2022 HCT 32.5 (L) 12/04/2022 PLT 269 12/04/2022 MCV 95.6 12/04/2022 MCH 30.0 12/04/2022 MCHC 31.4 12/04/2022 RDW 15.1 (H) 12/04/2022 [ BMP: Lab Results Component Value Date NA 139 12/04/2022 K 4.1 12/04/2022 CL 104 12/04/2022 CO2 22 12/04/2022 BUN 10 12/04/2022 CREATININE 0.70 12/04/2022 GLUCOSE 74 12/04/2022 CALCIUM 9.2 12/04/2022 ANIONGAP 13 12/04/2022 MG/PHOS: No results found for: MG, PHOS CKMB: No components found for: CKMB;2 PT/INR: Lab Results Component Value Date INR 2.6 (H) 12/05/2022 BNP: No results found for: BNP Last 3 Troponin: No components found for: TROPONINI;3 U/A: Lab Results Component Value Date COLORU [place] (A) 12/06/2022 CLARITYU Turbid (A) 12/06/2022 GLUCOSEU Negative 12/06/2022 BILIRUBINUR Negative 12/06/2022 KETONESU Negative 12/06/2022 UROBILINOGEN 4.0 (A) 12/06/2022 MUCUS 4+ 12/06/2022 RBCUA 21-50 (A) 12/06/2022 WBCUA >100 (A) 12/06/2022 CMP: Lab Results Component Value Date NA 139 12/04/2022 K 4.1 12/04/2022 CL 104 12/04/2022 CO2 22 12/04/2022 BUN 10 12/04/2022 CREATININE 0.70 12/04/2022 GLUCOSE 74 12/04/2022 CALCIUM 9.2 12/04/2022 ANIONGAP 13 12/04/2022 LFT's: No results found for: ALB, PROT Ionized Calcium: No components found for: IONCA ABG: No results found for: PHART, KSV1RQL, PO2ART, ILW5QGL, BEART, G9DPZBAF HgBA1c: No results found for: HGBA1C Lipid Panel: No results found for: CHOL, TRIG, HDL TSH: No results found for: TSH Lab Results Component Value Date GLUCOSE 74 12/04/2022 BUN 10 12/04/2022 CREATININE 0.70 12/04/2022 NA 139 12/04/2022 K 4.1 12/04/2022 CL 104 12/04/2022 CO2 22 12/04/2022 CALCIUM 9.2 12/04/2022 @RESU CBC: Recent Labs Lab Units 12/04/22 0335 WBC X(10)9/L BLOOD x10E9/L 8.2 HGB GM/DL BLOOD gm/dL 10.2* PLT CT X(10)9/L BLOOD x10E9/L 269 MCV FL BLOOD fl 95.6 BMP: Recent Labs Lab Units 12/04/22 0335 SODIUM MMOL/L BLOOD mmol/L 139 POTASSIUM MMOL/L BLOOD mmol/L 4.1 CHLORIDE mmol/L 104 CO2 mmol/L 22 BUN MG/DL BLOOD mg/dL 10 CREATININE mg/dL 0.70 GLUCOSE MG/DL BLOOD mg/dL 74 CALCIUM MG/DL BLOOD mg/dL 9.2 I reviewed the EKG tracing/Xray Recent Labs Lab Units 12/04/22 0335 SODIUM MMOL/L BLOOD mmol/L 139 POTASSIUM MMOL/L BLOOD mmol/L 4.1 CHLORIDE mmol/L 104 CO2 mmol/L 22 BUN MG/DL BLOOD mg/dL 10 CREATININE mg/dL 0.70 GLUCOSE MG/DL BLOOD mg/dL 74 CALCIUM MG/DL BLOOD mg/dL 9.2 ANION GAP BLOOD mmol/L 13 ASSESSMENT AND PLAN Principal Problem: Cerebrovascular accident Acute R MCA CVA Left hemiplegia /p TNK and MT and TICI2b revascularization on 10/19. Developed MCA syndrome s/p hemicrani. 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 - MRI brain w/wo done (11/10): cortical enhancement along the right frontal parietal and temporal regions 2/2 infarct progression but can't rule out cerebritis or infections.LP not concerning, however. -- glenis PEG fluid collection: Improved on abx - Urology replaced puentes (11/09-) TTE showed mobile aortic valve vegetation. IV abxs HTN Continue meds Migraine without aura Pian control GERD PPI Oral contraceptive use DVT Prophylaxis Obesity BMI 36 Nutrition consult Abn LFT Check hep screen Watch with statin D Pain management Today's pain score FEN. Nutrition consult for evaluation of nutritional status and the best diet. And for BMI evaluation and education regarding maintaining a healthy BMI Bladder management Voiding ok Bowel management . Titrate bowel medications for constipation/diarrhea. Skin. Nursing to address skin care throughout stay. Turn every 2 hrs Sleep. Monitor sleep-wake cycle. High Fall risk- Fall precautions GI Prophylaxis: DVT Prophylaxis: Full Resuscitation D/W patient , and attending physician about test results and treatment plan .No family in the room.Patient requiring monitoring of BP and HR while doing 3 hour intensive exercises to avoid fluctuations and hypotension . Aswell as monitoring of nutritional and fluid status , by weights, leg edema .Notified staff and patient to notify me of any change inconditions or new problems Electronically signed by: NGHIA PRYOR MD, at [facility] basically DUI may be GI need a I diving lysis consult subacute S do * Roland Mas, RD - 12/06/2022 8:53 AM CDT Clinical Nutrition Spoke with RN re: pt fluid intake and need to adjust free water flushes d/t improved water intake r/t water protocol. RN reports pt drank about 300 mL after brushing her teeth. Recommend change flush to 50 mL every 4 hours to provide 300 mL fluid per day to keep PEG patent. Will continue to follow per protocol. Roland Lewis MS,RD,LD [employer] [id number] * Nghia Pryor MD - 12/05/2022 9:23 PM CDT HOSPITALIST PROGRESS NOTE Patient Name: Consuelo Darby : 1980 Medical Record: [id number] ATTENDING Yamileth Frias MD SUBJECTIVE 11/19 The patient is being seen for follow-up of Cerebrovascular accident. BP, BS , HR, labs, strength. .Chief Complaint CT head ok Headache much better Got upto chair without helmet =did ok Working on better helmet Consider spinal headache if recurs- d/w dr Villagran strength improving, able to do therapy ok. No chest pain, no SOB, no dizziness, no palpitations, no new neurologic symptoms. No cough, No nausea or vomiting, No abdominal pain. History also obtained from Nurse and staff about how the patient did overnight and during the day strength improving, able to do therapy ok. 11/20 Patient seen an examined Doing alright No new issues to report Vitals reviewed 11/21 Patient seen and examined earlier No new issues to report Vitals reviewed Resting comfortably 11/22 Patient seen and examined Doing alright at this time Resting comfortably Vitals reviewed 11/23 The patient was seen in the room this afternoon. The patient currently does not report any chest pain, shortness present nausea or vomiting No reported issues from the floor nurse. The most recent labs and vital signs were reviewed. 11/24: Patient seen and examined this morning. Patient complaining of bilateral hip pain. Have placed order for Flexeril and lidocaine patch. No acute events reported overnight. Blood work and vital signs remained stable. Continue current medical management. 11/25: Patient seen and examined this morning. Patient continues to complain of bilateral hip pain. Continue lidocaine patches. Have scheduled Flexeril 5 mg t.i.d.. Continue current medical management. 11/26: Patient seen and examined this morning. Patient continues to complain of hip pain. Follow up left hip x-ray. Follow up with PM&R for further recommendations. Continue Lovenox. Have discussed Coumadin dosing with pharmacy. Goal to have INR from 2-3. No acute events reported overnight. Continue current medical management. 11/27:Patient seen and examined this morning. Vitals and labs reviewed. Resting comfortably. No acute events overnight. Continue current medical management. 11/30 Patient seen and examined Doing ok. No new issues to report 12/01 Patient seen and examined earlier this afternoon. Things are going well. No new issues to report. 12/02:Patient seen and examined this morning. Vitals and labs reviewed. Resting comfortably. No acute events overnight. Continue current medical management. 12/03: Patient seen and examined this morning. Patient complaining of sharp shooting pain around herleft hip area. Have started gabapentin 300 mg t.i.d.. Vital signs and blood work reviewed. INR at goal. Continue current medical management. 12/04 Patient seen and examined. Doing ok at this time. No new issues to report. Vitals reviewed. 12/05 Patient seen and examined earlier today. Doing alright. No new issues to report. Vitals reviewed. Having pain in hip. Discussed with dr. Frias BRIEF HISTORY The patient is a 42 y.o. y/o female with history of HTN, GERD, presented tO ED with new left sided weakness and slurred speech Diagnosed with acute CVA s/p TNK and m1 occlusion S/P MT . c/b R iliac and common femoral artery occlusion s/p thrombectomy. Developed Fever: consulted ID, broaden abx, Cxs. - MRI brain w/wo done (11/10): cortical enhancement along the right frontal parietal and temporal regions 2/2 infarct progression but can't rule out cerebritis or infections.however LP neg. Also had glenis PEG fluid collection: Improved on abx - Urology replaced puentes (11/09-) Extubated, now on RA HOME Medications Prior to Admission medications Medication Sig Start Date End Date Taking? Authorizing Provider cetirizine (ZyrTEC) 10 MG tablet Take 1 tablet (10 mg total) by mouth in the morning. Yes Historical Provider, omeprazole (PriLOSEC) 20 MG capsule Take 1 capsule (20 mg total) by mouth in the morning. Yes Historical Provider, amitriptyline (ELAVIL) 50 MG tablet 2 tablets (100 mg total) nightly. Historical ProviderMD CURRENT Medications Current Facility-Administered Medications: acetaminophen (TYLENOL) tablet 500 mg, 500 mg, Per Tube, Q6H PRN, Nghia Pryor MD, 500 mg at 12/05/221338 baclofen (LIORESAL) tablet 5 mg, 5 mg, Oral, Nightly, Yamileth Frias MD, 5 mg at 12/06/222024 bethanechol (URECHOLINE) tablet 25 mg, 25 mg, Oral, 3 times per day, Yamileth Frias MD, 25 mg at 12/06/222024 bisacodyl (DULCOLAX) suppository 10 mg, 10 mg, Rectal, Daily PRN, Yamileth Frias MD, 10 mg at 12/06/221820 cholecalciferol (VITAMIN D3) tablet 2,000 Units, 2,000 Units, Per Tube, Once a day, Nghia Pryor MD, 2,000 Units at 12/06/22904 cyclobenzaprine (FLEXERIL) tablet 5 mg, 5 mg, Oral, 3 times per day, Loy Dawson MD, 5 mg at 12/06/222024 gabapentin (NEURONTIN) capsule 300 mg, 300 mg, Oral, 3 times per day, Loy Dawson MD, 300 mg at 12/06/222024 guaiFENesin (ROBITUSSIN) 100 MG/5ML liquid 10 mL, 10 mL, Enteral, BID PRN, Nghia Pryor MD hydrocortisone (ANUSOL-HC) 2.5 % rectal cream, , Rectal, 2 times per day, Loy Dawson MD, Given at 12/06/222025 hydrOXYzine (ATARAX) tablet 25 mg, 25 mg, Oral, Q6H PRN, Yamileth Frias MD, 25 mg at 12/04/22 013 lidocaine (LIDOCARE) 4 % patch 1 patch, 1 patch, Transdermal, Once a day, Loy Dawson MD, 1 patch at 12/06/22 09 loratadine (CLARITIN) tablet 10 mg, 10 mg, Enteral, Once a day, Nghia Pryor MD, 10 mg at 12/06/22 09 metoprolol tartrate (LOPRESSOR) tablet 25 mg, 25 mg, Enteral, 2 times per day, Nghia Pryor MD, 25 mg at 12/06/222025 muscle rub (ICY HOT) 10-15 % cream, , Topical, 3 times per day, Yamileth Frias MD, Given at 12/06/222025 ondansetron ODT (ZOFRAN-ODT) disintegrating tablet 4 mg, 4 mg, Per Tube, Q6H PRN, Marlee Bradley MD, 4 mg at 12/04/22 0139 oxyCODONE (ROXICODONE) immediate release tablet 5 mg, 5 mg, Enteral, Q4H PRN, Marlee Bradley MD, 5mg at 12/06/22 1732 oxyCODONE (ROXICODONE) immediate release tablet 5 mg, 5 mg, Oral, Daily at 0600, Yamileth Frias MD, 5 mg at 12/06/22 0558 pantoprazole-sodium bicarbonate 2mg/ml oral liquid 40 mg, 40 mg, Per Tube, Daily bef breakfast, Marlee Bradley MD, 40 mg at 12/06/22 0559 polyethylene glycol (MIRALAX) packet 17 g, 17 g, Per Tube, BID PRN, Yamileth Frias MD senna-docusate (SENOKOT-S) 8.6-50 MG tablet 2 tablet, 2 tablet, Enteral, Daily PRN, Yamileth Frias MD simethicone (MYLICON) chewable tablet 80 mg, 80 mg, Per Tube, BID PRN, Marlee Bradley MD, 80 mg at11/28/222051 tamsulosin (FLOMAX) 24 hr capsule 0.4 mg, 0.4 mg, Enteral, After Breakfast, Nghia Pryor MD, 0.4 mg at 12/06/22904 triamcinolone (KENALOG) 0.1 % ointment, , Apply externally, BID PRN, Nghia Pryor MD, Given at 11/20/222014 verapamil (CALAN) tablet 40 mg, 40 mg, Enteral, Q8H SENDY, Nghia Pryor MD, 40 mg at 12/06/22 1438 Warfarin Per Policy, , Does not apply, Daily, Nghia Pryor MD [COMPLETED] warfarin tablet 3 mg, 3 mg, Oral, Once, 3 mg at 12/05/22 1843 FOLLOWED BY warfarin tablet 4 mg, 4 mg, Oral, Daily, Nghia Pryor MD, 4 mg at 12/06/22 1732 DATA Vitals: 12/06/22 0856 12/06/22 1104 12/06/22 1438 12/06/22 1945 BP: 96/62 96/62 122/80 103/68 Pulse: 84 84 90 Resp: 18 18 Temp: 98.3 ??F (36.8 ??C) 97.5 ??F (36.4 ??C) TempSrc: Oral Oral SpO2: 92% 97% Weight: Height: Weights (last 3 days) None @ANTICOAGSUMMARY@ @FLOWDATE(2706:LAST)@ Intake/Output Summary (Last 24 hours) at 12/06/20222122 Last data filed at 12/06/2022 1810 Gross per 24 hour Intake 1350 ml Output 1420 ml Net -70 ml PHYSICAL EXAM General appearance: awake, alert, cooperative, no distress HEENT: Normocephalic, No icterus, No oral lesions, Oral and nasal mucosa moist Neck: Supple, no lymphadenopathy Eyes: EOMI, Conjunctiva normal, No discharge Cardiovascular: Normal heart rate, Normal rhythm, No murmurs, No rubs, No gallops Respiratory: Normal breath sounds, No respiratory distress, No wheezing, No rhonchi, No rales, No chest tenderness. GI: Bowel sounds normal, Soft, No tenderness, No rebound or guarding, No masses. Abdomen: soft without mass, non-tender, with normal bowel sounds Extremities: no clubbing, cyanosis or edema, no calf tenderness Musculoskeletal:no swelling of joints.no redness Psychologic: Mood ok, no suicidal ideation. Skin: No rash. 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 LABS CBC with Differential: Lab Results Component Value Date WBC 8.2 12/04/2022 HGB 10.2 (L) 12/04/2022 HCT 32.5 (L) 12/04/2022 PLT 269 12/04/2022 MCV 95.6 12/04/2022 MCH 30.0 12/04/2022 MCHC 31.4 12/04/2022 RDW 15.1 (H) 12/04/2022 [ BMP: Lab Results Component Value Date NA 139 12/04/2022 K 4.1 12/04/2022 CL 104 12/04/2022 CO2 22 12/04/2022 BUN 10 12/04/2022 CREATININE 0.70 12/04/2022 GLUCOSE 74 12/04/2022 CALCIUM 9.2 12/04/2022 ANIONGAP 13 12/04/2022 MG/PHOS: No results found for: MG, PHOS CKMB: No components found for: CKMB;2 PT/INR: Lab Results Component Value Date INR 2.6 (H) 12/05/2022 BNP: No results found for: BNP Last 3 Troponin: No components found for: TROPONINI;3 U/A: Lab Results Component Value Date COLORU [place] (A) 12/06/2022 CLARITYU Turbid (A) 12/06/2022 GLUCOSEU Negative 12/06/2022 BILIRUBINUR Negative 12/06/2022 KETONESU Negative 12/06/2022 UROBILINOGEN 4.0 (A) 12/06/2022 MUCUS 4+ 12/06/2022 RBCUA 21-50 (A) 12/06/2022 WBCUA >100 (A) 12/06/2022 CMP: Lab Results Component Value Date NA 139 12/04/2022 K 4.1 12/04/2022 CL 104 12/04/2022 CO2 22 12/04/2022 BUN 10 12/04/2022 CREATININE 0.70 12/04/2022 GLUCOSE 74 12/04/2022 CALCIUM 9.2 12/04/2022 ANIONGAP 13 12/04/2022 LFT's: No results found for: ALB, PROT Ionized Calcium: No components found for: IONCA ABG: No results found for: PHART, [id number], PO2ART, OFR4AOA, BEART, R7YMMHRP HgBA1c: No results found for: HGBA1C Lipid Panel: No results found for: CHOL, TRIG, HDL TSH: No results found for: TSH Lab Results Component Value Date GLUCOSE 74 12/04/2022 BUN 10 12/04/2022 CREATININE 0.70 12/04/2022 NA 139 12/04/2022 K 4.1 12/04/2022 CL 104 12/04/2022 CO2 22 12/04/2022 CALCIUM 9.2 12/04/2022 @RESU CBC: Recent Labs Lab Units 12/04/22 0335 WBC X(10)9/L BLOOD x10E9/L 8.2 HGB GM/DL BLOOD gm/dL 10.2* PLT CT X(10)9/L BLOOD x10E9/L 269 MCV FL BLOOD fl 95.6 BMP: Recent Labs Lab Units 12/04/22 0335 SODIUM MMOL/L BLOOD mmol/L 139 POTASSIUM MMOL/L BLOOD mmol/L 4.1 CHLORIDE mmol/L 104 CO2 mmol/L 22 BUN MG/DL BLOOD mg/dL 10 CREATININE mg/dL 0.70 GLUCOSE MG/DL BLOOD mg/dL 74 CALCIUM MG/DL BLOOD mg/dL 9.2 I reviewed the EKG tracing/Xray Recent Labs Lab Units 12/04/22 0335 SODIUM MMOL/L BLOOD mmol/L 139 POTASSIUM MMOL/L BLOOD mmol/L 4.1 CHLORIDE mmol/L 104 CO2 mmol/L 22 BUN MG/DL BLOOD mg/dL 10 CREATININE mg/dL 0.70 GLUCOSE MG/DL BLOOD mg/dL 74 CALCIUM MG/DL BLOOD mg/dL 9.2 ANION GAP BLOOD mmol/L 13 ASSESSMENT AND PLAN Principal Problem: Cerebrovascular accident Acute R MCA CVA Left hemiplegia /p TNK and MT and TICI2b revascularization on 10/19. Developed MCA syndrome s/p hemicrani. 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 - MRI brain w/wo done (11/10): cortical enhancement along the right frontal parietal and temporal regions 2/2 infarct progression but can't rule out cerebritis or infections.LP not concerning, however. -- glenis PEG fluid collection: Improved on abx - Urology replaced puentes (11/09-) TTE showed mobile aortic valve vegetation. IV abxs HTN Continue meds Migraine without aura Pian control GERD PPI Oral contraceptive use DVT Prophylaxis Obesity BMI 36 Nutrition consult Abn LFT Check hep screen Watch with statin D Pain management Today's pain score FEN. Nutrition consult for evaluation of nutritional status and the best diet. And for BMI evaluation and education regarding maintaining a healthy BMI Bladder management Voiding ok Bowel management . Titrate bowel medications for constipation/diarrhea. Skin. Nursing to address skin care throughout stay. Turn every 2 hrs Sleep. Monitor sleep-wake cycle. High Fall risk- Fall precautions GI Prophylaxis: DVT Prophylaxis: Full Resuscitation D/W patient , and attending physician about test results and treatment plan .No family in the room.Patient requiring monitoring of BP and HR while doing 3 hour intensive exercises to avoid fluctuations and hypotension . Aswell as monitoring of nutritional and fluid status , by weights, leg edema .Notified staff and patient to notify me of any change inconditions or new problems Electronically signed by: NGHIA PRYOR MD, at [facility] basically DUI may be GI need a I diving lysis consult subacute S do * Sandra Land, PharmD - 12/05/2022 4:02 PM CDT [facility] Pharmacy Note Pharmacy Consultation - Warfarin Dosing and Monitoring Consuelo Darby is a 42 y.o. female who has been consulted for pharmacy warfarin dosing and monitoring for indication of embolic stroke. Labs: INR Date Value Ref Range Status 12/05/2022 2.6 (H) 0.9 - 1.1 Final 12/04/2022 2.7 (H) 0.9 - 1.1 Final 12/03/2022 2.4 (H) 0.9 - 1.1 Final 12/02/2022 2.5 (H) 0.9 - 1.1 Final 12/01/2022 2.5 (H) 0.9 - 1.1 Final HGB gm/dL Blood Date Value Ref Range Status 12/04/2022 10.2 (L) 12.0 - 15.6 gm/dL Final 11/30/2022 10.0 (L) 12.0 - 15.6 gm/dL Final 11/27/2022 9.9 (L) 12.0 - 15.6 gm/dL Final HCT % Blood Date Value Ref Range Status 12/04/2022 32.5 (L) 35.9 - 45.5 % Final 11/30/2022 32.1 (L) 35.9 - 45.5 % Final 11/27/2022 31.8 (L) 35.9 - 45.5 % Final Plt Ct X(10)9/L Blood Date Value Ref Range Status 12/04/2022 269 153 - 416 x10E9/L Final 11/30/2022 254 153 - 416 x10E9/L Final 11/27/2022 291 153 - 416 x10E9/L Final Current Facility-Administered Medications: acetaminophen (TYLENOL) tablet 500 mg, 500 mg, Per Tube, Q6H PRN, Nghia Pryor MD, 500 mg at 12/05/22 1339 baclofen (LIORESAL) tablet 5 mg, 5 mg, Oral, Nightly, Yamileth Frias MD, 5 mg at 12/04/22 2100 bethanechol (URECHOLINE) tablet 25 mg, 25 mg, Oral, 3 times per day, Yamileth Frias MD, 25 mg at 12/05/22 1544 bisacodyl (DULCOLAX) suppository 10 mg, 10 mg, Rectal, Daily PRN, Nghia Pryor MD, 10 mg at 12/02/22 1054 cholecalciferol (VITAMIN D3) tablet 2,000 Units, 2,000 Units, Per Tube, Once a day, Nghia Pryor MD, 2,000 Units at 12/05/22 0936 cyclobenzaprine (FLEXERIL) tablet 5 mg, 5 mg, Oral, 3 times per day, Loy Dawson MD, 5 mg at 12/05/22 1545 gabapentin (NEURONTIN) capsule 300 mg, 300 mg, Oral, 3 times per day, Loy Dawson MD, 300 mg at 12/05/22 1544 guaiFENesin (ROBITUSSIN) 100 MG/5ML liquid 10 mL, 10 mL, Enteral, BID PRN, Nghia Pryor MD hydrocortisone (ANUSOL-HC) 2.5 % rectal cream, , Rectal, 2 times per day, Loy Dawson MD, Given at 12/04/222100 hydrOXYzine (ATARAX) tablet 25 mg, 25 mg, Oral, Q6H PRN, Yamileth Frias MD, 25 mg at 12/04/22 013 lidocaine (LIDOCARE) 4 % patch 1 patch, 1 patch, Transdermal, Once a day, Loy Dawson MD, 1 patch at 12/04/22 08 loratadine (CLARITIN) tablet 10 mg, 10 mg, Enteral, Once a day, Nghia Pryor MD, 10 mg at 12/05/22 0938 metoprolol tartrate (LOPRESSOR) tablet 25 mg, 25 mg, Enteral, 2 times per day, Nghia Pryor MD, 25 mg at 12/05/22 0936 muscle rub (ICY HOT) 10-15 % cream, , Topical, 3 times per day, Yamileth Frias MD, Given at 12/05/22 1545 ondansetron ODT (ZOFRAN-ODT) disintegrating tablet 4 mg, 4 mg, Per Tube, Q6H PRN, Marlee Bradley MD, 4 mg at 12/04/22 013 oxyCODONE (ROXICODONE) immediate release tablet 5 mg, 5 mg, Enteral, Q4H PRN, Marlee Bradley MD, 5mg at 12/05/22 1339 oxyCODONE (ROXICODONE) immediate release tablet 5 mg, 5 mg, Oral, Daily at 0600, Yamileth Frias MD, 5 mg at 12/05/22 0527 pantoprazole-sodium bicarbonate 2mg/ml oral liquid 40 mg, 40 mg, Per Tube, Daily bef breakfast, Marlee Bradley MD, 40 mg at 12/05/22 0631 polyethylene glycol (MIRALAX) packet 17 g, 17 g, Per Tube, BID PRN, Yamileth Frias MD, 17 g at 12/03/22 09 senna-docusate (SENOKOT-S) 8.6-50 MG tablet 2 tablet, 2 tablet, Enteral, Daily PRN, Nghia Pryor MD, 2 tablet at 12/03/22 0925 simethicone (MYLICON) chewable tablet 80 mg, 80 mg, Per Tube, BID PRN, Marlee Bradley MD, 80 mg at11/28/222051 tamsulosin (FLOMAX) 24 hr capsule 0.4 mg, 0.4 mg, Enteral, After Breakfast, Nghia Pryor MD, 0.4 mg at 12/05/22936 triamcinolone (KENALOG) 0.1 % ointment, , Apply externally, BID PRN, Nghia Pryor MD, Given at 11/20/222014 verapamil (CALAN) tablet 40 mg, 40 mg, Enteral, Q8H SENDY, Nghia Pryor MD, 40 mg at 12/05/22 1338 Warfarin Per Policy, , Does not apply, Daily, Nghia Pryor MD warfarin tablet 3 mg, 3 mg, Oral, Once FOLLOWED BY [START ON 12/06/2022] warfarin tablet 4 mg, 4mg, Oral, Daily, Nghia Pryor MD Assessment: Warfarin Indication: embolic stroke due to septic emboli; MT c/b R iliac and common femoral artery occlusion s/p thrombectomy. INR Goal: 2-3 Today's INR is 2.6 today and is therapeutic. Bridging Therapy: No describe: complete Risk Factors for Bleeding: na Pertinent Medication Related to Warfarin: na Plan: 1. Administer warfarin 3mg by mouth today. Administer warfarin 4 mg by mouth tomorrow (Sunday) and 2. Check INR on Sunday. Pharmacy will follow up with INR recheck and order subsequent warfarin doses pending INR results. 3.The patient will continue to be monitored by the pharmacy department for the duration of the length of stay for assurance of medication safety and efficacy. SANDRA LAND, PharmD 3:58 PM CDT 12/05/22 * Yamileth Frias MD - 12/05/2022 11:15 AM CDT PM&R PROGRESS NOTE This is Face to Face Visit note Consuelo Darby is a 42 y.o. female patient. Comfortably sitting in chair Hip pain + REVIEW OF FUNCTIONAL STATUS SM Functional Status PT Data (since 12/02/2022) None BED MOBILITY: Sit to/from supine with max/total assist. Support for left side, positioning. Max of one and at times min/mod of another for trunk/lift assist. Varies with left hip pain. Rolls left with min assist to complete motion, to right with max assist to help left side- completemotion. Painful left hip. TRANSFERS Sit to/from stand with max assist on left to block left leg, SM Functional Status OT Data (since 12/02/2022) None Patient Active Problem List Diagnosis Cerebrovascular accident Hypertension Past Medical History: Diagnosis Date Gastroesophageal reflux disease Hypertension Migraine Current Facility-Administered Medications: acetaminophen (TYLENOL) tablet 500 mg, 500 mg, Per Tube, Q6H PRN, Nghia Pryor MD, 500 mg at 12/04/22 0139 baclofen (LIORESAL) tablet 5 mg, 5 mg, Oral, Nightly, Yamileth Frias MD, 5 mg at 12/04/22 2100 bethanechol (URECHOLINE) tablet 25 mg, 25 mg, Oral, 3 times per day, Yamileth Frias MD, 25 mg at 12/05/22 0935 bisacodyl (DULCOLAX) suppository 10 mg, 10 mg, Rectal, Daily PRN, Nghia Pryor MD, 10 mg at 12/02/22 1054 cholecalciferol (VITAMIN D3) tablet 2,000 Units, 2,000 Units, Per Tube, Once a day, Nghia Pryor MD, 2,000 Units at 12/05/22 0936 cyclobenzaprine (FLEXERIL) tablet 5 mg, 5 mg, Oral, 3 times per day, Loy Dawson MD, 5 mg at 12/05/22 0937 gabapentin (NEURONTIN) capsule 300 mg, 300 mg, Oral, 3 times per day, Loy Dawson MD, 300 mg at 12/05/22 0935 guaiFENesin (ROBITUSSIN) 100 MG/5ML liquid 10 mL, 10 mL, Enteral, BID PRN, Nghia Pryor MD hydrocortisone (ANUSOL-HC) 2.5 % rectal cream, , Rectal, 2 times per day, Loy Dawson MD, Given at 12/04/22 210 hydrOXYzine (ATARAX) tablet 25 mg, 25 mg, Oral, Q6H PRN, Yamileth Frias MD, 25 mg at 12/04/22 013 lidocaine (LIDOCARE) 4 % patch 1 patch, 1 patch, Transdermal, Once a day, Loy Dawson MD, 1 patch at 12/04/22 08 loratadine (CLARITIN) tablet 10 mg, 10 mg, Enteral, Once a day, Nghia Pryor MD, 10 mg at 12/05/22 0938 metoprolol tartrate (LOPRESSOR) tablet 25 mg, 25 mg, Enteral, 2 times per day, Nghia Pryor MD, 25 mg at 12/05/22 0936 muscle rub (ICY HOT) 10-15 % cream, , Topical, 3 times per day, Yamileth Frias MD ondansetron ODT (ZOFRAN-ODT) disintegrating tablet 4 mg, 4 mg, Per Tube, Q6H PRN, Marlee Bradley MD, 4 mg at 12/04/22 013 oxyCODONE (ROXICODONE) immediate release tablet 5 mg, 5 mg, Enteral, Q4H PRN, Marlee Bradley MD, 5mg at 12/05/22 0955 oxyCODONE (ROXICODONE) immediate release tablet 5 mg, 5 mg, Oral, Daily at 0600, Yamileth Frias MD, 5 mg at 12/05/22 05 pantoprazole-sodium bicarbonate 2mg/ml oral liquid 40 mg, 40 mg, Per Tube, Daily bef breakfast, Marlee Bradley MD, 40 mg at 12/05/22 0631 polyethylene glycol (MIRALAX) packet 17 g, 17 g, Per Tube, BID PRN, Yamileth Frias MD, 17 g at 12/03/22 09 senna-docusate (SENOKOT-S) 8.6-50 MG tablet 2 tablet, 2 tablet, Enteral, Daily PRN, Nghia Pryor MD, 2 tablet at 12/03/22924 simethicone (MYLICON) chewable tablet 80 mg, 80 mg, Per Tube, BID PRN, Marlee Bradley MD, 80 mg at11/28/222051 tamsulosin (FLOMAX) 24 hr capsule 0.4 mg, 0.4 mg, Enteral, After Breakfast, Nghia Pryor MD, 0.4 mg at 12/05/22936 triamcinolone (KENALOG) 0.1 % ointment, , Apply externally, BID PRN, Nghia Pryor MD, Given at 11/20/222014 verapamil (CALAN) tablet 40 mg, 40 mg, Enteral, Q8H SENDY, Nghia Pryor MD, 40 mg at 12/05/22 0527 Warfarin Per Policy, , Does not apply, Daily, Nghia Pryor MD Review of Systems: Review of Systems Constitutional: Negative for appetite change. HENT: Negative for congestion. Respiratory: Negative for shortness of breath. Cardiovascular: Positive for leg swelling. Genitourinary: Negative for flank pain. Musculoskeletal: Negative for arthralgias and joint swelling. Neurological: Negative for headaches. Psychiatric/Behavioral: The patient is nervous/anxious. Physical Exam Vitals: 12/05/22 0742 BP: 112/72 Pulse: 78 Resp: 18 Temp: 97.9 ??F (36.6 ??C) SpO2: 94% Physical Exam Constitutional: General: She is not in acute distress. HENT: Head: Atraumatic. Eyes: Conjunctiva/sclera: Conjunctivae normal. Cardiovascular: Rate and Rhythm: Normal rate. Pulmonary: Effort: Pulmonary effort is normal. Abdominal: General: There is no distension. Skin: Findings: No erythema. Neurological: Coordination: Coordination abnormal. Neurologic Exam Lab Data Reviewed current lab results available to me today. Lab Results Component Value Date WBC 8.2 12/04/2022 HGB 10.2 (L) 12/04/2022 HCT 32.5 (L) 12/04/2022 MCV 95.6 12/04/2022 PLT 269 12/04/2022 Lab Results Component Value Date GLUCOSE 74 12/04/2022 CALCIUM 9.2 12/04/2022 NA 139 12/04/2022 K 4.1 12/04/2022 CO2 22 12/04/2022 CL 104 12/04/2022 BUN 10 12/04/2022 CREATININE 0.70 12/04/2022 ANIONGAP 13 12/04/2022 Imaging Reviewed current imaging results available to me today. XR abdomen 1 vws Result Date: 11/19/2022 NARRATIVE: Procedure: XR ABDOMEN KUB Exam Date: 11/19/2022 9:38 AM Location: [facility] Indication: abdominal fullness, reflux. Patient on peg tube feeding FINDINGS/IMPRESSION: Air is seen throughout the colonic structures. No dilated bowel loops are identified. There is no evidence tosuggest obstruction. There is no gross free intraperitoneal air. There does appear to be a gastrostomy tube superimposing the stomach. > Interpreting Provider: Rebel Hernandez MD on 11/19/2022 9:[address] head WO contrast Result Date: 11/19/2022 NARRATIVE: Procedure: CT HEAD WO CONTRAST Exam Date: 11/19/2022 9:31 AM Location: [facility] CT head without IV contrast INDICATION: worsening pain TECHNIQUE: CT examination of the head was performed from the base of the skull through the vertex using multiple axial images without IV contrast. FINDINGS: No old studies are available for comparison purposes. VIZ AI was utilized. Patient is status post right-sided craniectomy. There is extensive encephalomalacia involving the right frontal lobe with with some minimal involvement of the temporal and parietal lobe. There is no acute infarct. There is no mass. There is no hemorrhage. There are no extra-axial fluid collections. There is no midline shift. IMPRESSION: IMPRESSION: Right frontal craniectomy with extensive encephalomalacia involving the right frontal lobe as well as some involvement of the parietal and temporal lobes. > Interpreting Provider: Rebel Hernandez MD on 11/19/2022 9:36 AM Assessment & Plan: Consuelo Darby is a 42 y.o. female patient with Cerebrovascular accident functional impairment for rehab Cerebrovascular accident PT, OT for gait training and ADL training, Nursing for bowel and bladder care. Speech therapy for swallow evaluation and cognitive evaluation. Acute R MCA CVA Left dense hemiplegia LUE / LLE : 0/5 Left face droop Left neglect Spasticity: SENDY Baclofen 5 mg HS and flexeril TID SENDY Oxy before therapy from 12/02 Left hip pain - XR today Muscle rub SENDY s/p TNK and MT and TICI2b revascularization on 10/19. 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 S /P IV abxs HTN Continue metoprolol , verapamil # headaches: On Tylenol and Oxy PRN Pian control # Neurogenic bladder: puentes placed on 12/04 but put removed on 12/05 Voiding trials today Urology consult Flomax HS Urecholine 25 mg TID from 11/27 Skin/Wounds: - Skin integrity and Pressure ulcer prevention: frequent repositioning and adequate pressure relief. Maintain clean, dry skin. If needed, q2 hour turns when in bed and regular skin checks, application of protective barrier cream, toileting schedule. Wound RN consult Bowel & Bladder - monitor bowel movement - adjust scheduled and PRN bowel regimen as needed - monitor for adequate urinary output - should suspicion for urinary retention arise, PVR of random bladder scan will be performed for further assessment Continue current medical management. RECOMMENDATIONS At the current time, this inpatient hospital rehabilitation stay is medically necessary to achieve important health and functional goals. The patient requires frequent physician visits, 24-hour rehabilitation nursing, and a coordinated intensive rehabilitation program as described above to address complex medical, nursing, and rehabilitation needs. Continue inpatient comprehensive interdisciplinary rehabilitation to address strengthening, mobility skills, self care, cognitive functioning, speech, communication and swallowing needs. The patient continues to require the interdisciplinary team approach and 24 hour monitoring. DIET: Dietary Orders (From admission, onward) Start Ordered 12/05/22 1228 Adult Diet Regular; 6 Soft & Bite-Sized ([employer]D III); 2 Mildly Thick ([employer]) Diet effective now End/Expires: Until Specified References: IDDSI Website Question Answer Comment Diet Type: Regular Diet Texture: 6 Soft & Bite-Sized (NDD III) Liquid Consistency: 2 Mildly Thick ([employer]) Place order in third green party system. Done 12/05/22 1228 12/04/22 1027 Jevity 1.5; Tube Feeding Bolus (mL): 240; Tube Feeding Bolus frequency: if po intake < 50% meals; Tube Feeding water flush (mL): 150; Water flush frequency: Every 4 hours Diet effective now Comments: Increase free water flush to 150 mL every 4 hours End/Expires: Until Specified Question Answer Comment Tube Feeding Formula: Jevity 1.5 Tube Feeding Bolus (mL): 240 Tube Feeding Bolus frequency: if po intake < 50% meals Tube Feeding water flush (mL): 150 Water flush frequency: Every [address] order in third green party system. Done 12/04/22 1027 11/29/22 1700 Nutritional supplement Magic Cup; Oral 3 times daily with meals Comments: Send chocolate Thrive TID End/Expires: Until Specified Question Answer Comment Select Supplement: Magic Cup Administration Route: Oral Place order in third green party system. Done 11/29/22 1250 Patient Active Problem List Diagnosis Cerebrovascular accident Hypertension # Vision deficits: Hand Rigger following Team Conference: 12/05/2022 Please refer to team conference note from today for details Case discussed with social welfare administrator/ PT/OT/nursing . 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 BP, BS , HR, labs, strength. .Chief Complaint CT head ok Headache much better Got upto chair without helmet =did ok Working on better helmet Consider spinal headache if recurs- d/w dr Villagran strength improving, able to do therapy ok. No chest pain, no SOB, no dizziness, no palpitations, no new neurologic symptoms. No cough, No nausea or vomiting, No abdominal pain. History also obtained from Nurse and staff about how the patient did overnight and during the day strength improving, able to do therapy ok. 11/20 Patient seen an examined Doing alright No new issues to report Vitals reviewed 11/21 Patient seen and examined earlier No new issues to report Vitals reviewed Resting comfortably 11/22 Patient seen and examined Doing alright at this time Resting comfortably Vitals reviewed 11/23 The patient was seen in the room this afternoon. The patient currently does not report any chest pain, shortness present nausea or vomiting No reported issues from the floor nurse. The most recent labs and vital signs were reviewed. 11/24: Patient seen and examined this morning. Patient complaining of bilateral hip pain. Have placed order for Flexeril and lidocaine patch. No acute events reported overnight. Blood work and vital signs remained stable. Continue current medical management. 11/25: Patient seen and examined this morning. Patient continues to complain of bilateral hip pain. Continue lidocaine patches. Have scheduled Flexeril 5 mg t.i.d.. Continue current medical management. 11/26: Patient seen and examined this morning. Patient continues to complain of hip pain. Follow up left hip x-ray. Follow up with PM&R for further recommendations. Continue Lovenox. Have discussed Coumadin dosing with pharmacy. Goal to have INR from 2-3. No acute events reported overnight. Continue current medical management. 11/27:Patient seen and examined this morning. Vitals and labs reviewed. Resting comfortably. No acute events overnight. Continue current medical management. 11/30 Patient seen and examined Doing ok. No new issues to report 12/01 Patient seen and examined earlier this afternoon. Things are going well. No new issues to report. 12/02:Patient seen and examined this morning. Vitals and labs reviewed. Resting comfortably. No acute events overnight. Continue current medical management. 12/03: Patient seen and examined this morning. Patient complaining of sharp shooting pain around herleft hip area. Have started gabapentin 300 mg t.i.d.. Vital signs and blood work reviewed. INR at goal. Continue current medical management. 12/04 Patient seen and examined. Doing ok at this time. No new issues to report. Vitals reviewed. BRIEF HISTORY The patient is a 42 y.o. y/o female with history of HTN, GERD, presented tO ED with new left sided weakness and slurred speech Diagnosed with acute CVA s/p TNK and m1 occlusion S/P MT . c/b R iliac and common femoral artery occlusion s/p thrombectomy. Developed Fever: consulted ID, broaden abx, Cxs. - MRI brain w/wo done (11/10): cortical enhancement along the right frontal parietal and temporal regions 2/2 infarct progression but can't rule out cerebritis or infections.however LP neg. Also had glenis PEG fluid collection: Improved on abx - Urology replaced puentes (11/09-) Extubated, now on RA HOME Medications Prior to Admission medications Medication Sig Start Date End Date Taking? Authorizing Provider cetirizine (ZyrTEC) 10 MG tablet Take 1 tablet (10 mg total) by mouth in the morning. Yes Historical Provider, omeprazole (PriLOSEC) 20 MG capsule Take 1 capsule (20 mg total) by mouth in the morning. Yes Historical Provider, amitriptyline (ELAVIL) 50 MG tablet 2 tablets (100 mg total) nightly. Historical Provider, CURRENT Medications Current Facility-Administered Medications: acetaminophen (TYLENOL) tablet 500 mg, 500 mg, Per Tube, Q6H PRN, Nghia Pryor MD, 500 mg at 12/04/22 0139 baclofen (LIORESAL) tablet 5 mg, 5 mg, Oral, Nightly, Yamileth Frias MD, 5 mg at 12/03/22 2157 bethanechol (URECHOLINE) tablet 25 mg, 25 mg, Oral, 3 times per day, Yamileth Frias MD, 25 mg at 12/04/22 1455 bisacodyl (DULCOLAX) suppository 10 mg, 10 mg, Rectal, Daily PRN, Nghia Pryor MD, 10 mg at 12/02/22 1054 cholecalciferol (VITAMIN D3) tablet 2,000 Units, 2,000 Units, Per Tube, Once a day, Nghia Pryor MD, 2,000 Units at 12/04/22 0802 cyclobenzaprine (FLEXERIL) tablet 5 mg, 5 mg, Oral, 3 times per day, Loy Dawson MD, 5 mg at 12/04/22 1455 gabapentin (NEURONTIN) capsule 300 mg, 300 mg, Oral, 3 times per day, Loy Dawson MD, 300 mg at 12/04/22 1455 guaiFENesin (ROBITUSSIN) 100 MG/5ML liquid 10 mL, 10 mL, Enteral, BID PRN, Nghia Pryor MD hydrocortisone (ANUSOL-HC) 2.5 % rectal cream, , Rectal, 2 times per day, Loy Dawson MD, Given at 12/04/22 08 hydrOXYzine (ATARAX) tablet 25 mg, 25 mg, Oral, Q6H PRN, Yamileth Frias MD, 25 mg at 12/04/22 013 lidocaine (LIDOCARE) 4 % patch 1 patch, 1 patch, Transdermal, Once a day, Loy Dawson MD, 1 patch at 12/04/22 08 loratadine (CLARITIN) tablet 10 mg, 10 mg, Enteral, Once a day, Nghia Pryor MD, 10 mg at 12/04/22 08 metoprolol tartrate (LOPRESSOR) tablet 25 mg, 25 mg, Enteral, 2 times per day, Nghia Pryor MD, 25 mg at 12/04/22 08 ondansetron ODT (ZOFRAN-ODT) disintegrating tablet 4 mg, 4 mg, Per Tube, Q6H PRN, Marlee Bradley MD, 4 mg at 12/04/22 013 oxyCODONE (ROXICODONE) immediate release tablet 5 mg, 5 mg, Enteral, Q4H PRN, Marlee Bradley MD, 5mg at 12/04/22 145 oxyCODONE (ROXICODONE) immediate release tablet 5 mg, 5 mg, Oral, Daily at 0600, Yamileth Frias MD, 5 mg at 12/04/22 06 pantoprazole-sodium bicarbonate 2mg/ml oral liquid 40 mg, 40 mg, Per Tube, Daily bef breakfast, Marlee Bradley MD, 40 mg at 12/04/22 06 polyethylene glycol (MIRALAX) packet 17 g, 17 g, Per Tube, BID PRN, Yamileth Frias MD, 17 g at 12/03/22924 senna-docusate (SENOKOT-S) 8.6-50 MG tablet 2 tablet, 2 tablet, Enteral, Daily PRN, Nghia Pryor MD, 2 tablet at 12/03/22924 simethicone (MYLICON) chewable tablet 80 mg, 80 mg, Per Tube, BID PRN, Marlee Bradley MD, 80 mg at11/28/222051 tamsulosin (FLOMAX) 24 hr capsule 0.4 mg, 0.4 mg, Enteral, After Breakfast, Nghia Pryor MD, 0.4 mg at 12/04/22 0802 triamcinolone (KENALOG) 0.1 % ointment, , Apply externally, BID PRN, Nghia Pryor MD, Given at 11/20/222014 verapamil (CALAN) tablet 40 mg, 40 mg, Enteral, Q8H SENDY, Nghia Pryor MD, 40 mg at 12/04/22 1455 Warfarin Per Policy, , Does not apply, Daily, Nghia Pryor MD DATA Vitals: 12/03/22 1516 12/03/22 1920 12/04/22 0616 12/04/22 0739 BP: 110/84 122/74 97/62 103/63 Pulse: 89 79 82 Resp: 16 18 Temp: 98 ??F (36.7 ??C) 97.9 ??F (36.6 ??C) TempSrc: Oral Oral SpO2: 95% 93% Weight: Height: Weights (last 3 days) Date/Time Weight Height BSA (Calculated - sq m) 12/01/22 0400 189 lb (85.7 kg) 5' 4 (1.626 m) 1.97 sq meters @ANTICOAGSUMMARY@ @FLOWDATE(2706:LAST)@ Intake/Output Summary (Last 24 hours) at 12/04/20221958 Last data filed at 12/04/2022 1812 Gross per 24 hour Intake 1630 ml Output 1145 ml Net 485 ml PHYSICAL EXAM General appearance: awake, alert, cooperative, no distress HEENT: Normocephalic, No icterus, No oral lesions, Oral and nasal mucosa moist Neck: Supple, no lymphadenopathy Eyes: EOMI, Conjunctiva normal, No discharge Cardiovascular: Normal heart rate, Normal rhythm, No murmurs, No rubs, No gallops Respiratory: Normal breath sounds, No respiratory distress, No wheezing, No rhonchi, No rales, No chest tenderness. GI: Bowel sounds normal, Soft, No tenderness, No rebound or guarding, No masses. Abdomen: soft without mass, non-tender, with normal bowel sounds Extremities: no clubbing, cyanosis or edema, no calf tenderness Musculoskeletal:no swelling of joints.no redness Psychologic: Mood ok, no suicidal ideation. Skin: No rash. 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 LABS CBC with Differential: Lab Results Component Value Date WBC 8.2 12/04/2022 HGB 10.2 (L) 12/04/2022 HCT 32.5 (L) 12/04/2022 PLT 269 12/04/2022 MCV 95.6 12/04/2022 MCH 30.0 12/04/2022 MCHC 31.4 12/04/2022 RDW 15.1 (H) 12/04/2022 [ BMP: Lab Results Component Value Date NA 139 12/04/2022 K 4.1 12/04/2022 CL 104 12/04/2022 CO2 22 12/04/2022 BUN 10 12/04/2022 CREATININE 0.70 12/04/2022 GLUCOSE 74 12/04/2022 CALCIUM 9.2 12/04/2022 ANIONGAP 13 12/04/2022 MG/PHOS: No results found for: MG, PHOS CKMB: No components found for: CKMB;2 PT/INR: Lab Results Component Value Date INR 2.7 (H) 12/04/2022 BNP: No results found for: BNP Last 3 Troponin: No components found for: TROPONINI;3 U/A: No results found for: COLORU, CLARITYU, GLUCOSEU, BILIRUBINUR, KETONESU, SPECGRAV, BLOODU, PHUR, UROBILINOGEN, NITRITE, LEUKOCYTESUR, MUCUS, RBCUA, WBCUA CMP: Lab Results Component Value Date NA 139 12/04/2022 K 4.1 12/04/2022 CL 104 12/04/2022 CO2 22 12/04/2022 BUN 10 12/04/2022 CREATININE 0.70 12/04/2022 GLUCOSE 74 12/04/2022 CALCIUM 9.2 12/04/2022 ANIONGAP 13 12/04/2022 LFT's: No results found for: ALB, PROT Ionized Calcium: No components found for: IONCA ABG: No results found for: PHART, CMW9OYR, PO2ART, IAD2AVX, BEART, [id number] HgBA1c: No results found for: HGBA1C Lipid Panel: No results found for: CHOL, TRIG, HDL TSH: No results found for: TSH Lab Results Component Value Date GLUCOSE 74 12/04/2022 BUN 10 12/04/2022 CREATININE 0.70 12/04/2022 NA 139 12/04/2022 K 4.1 12/04/2022 CL 104 12/04/2022 CO2 22 12/04/2022 CALCIUM 9.2 12/04/2022 @RESU CBC: Recent Labs Lab Units 12/04/22 0335 WBC X(10)9/L BLOOD x10E9/L 8.2 HGB GM/DL BLOOD gm/dL 10.2* PLT CT X(10)9/L BLOOD x10E9/L 269 MCV FL BLOOD fl 95.6 BMP: Recent Labs Lab Units 12/04/22 0335 SODIUM MMOL/L BLOOD mmol/L 139 POTASSIUM MMOL/L BLOOD mmol/L 4.1 CHLORIDE mmol/L 104 CO2 mmol/L 22 BUN MG/DL BLOOD mg/dL 10 CREATININE mg/dL 0.70 GLUCOSE MG/DL BLOOD mg/dL 74 CALCIUM MG/DL BLOOD mg/dL 9.2 I reviewed the EKG tracing/Xray Recent Labs Lab Units 12/04/22 0335 SODIUM MMOL/L BLOOD mmol/L 139 POTASSIUM MMOL/L BLOOD mmol/L 4.1 CHLORIDE mmol/L 104 CO2 mmol/L 22 BUN MG/DL BLOOD mg/dL 10 CREATININE mg/dL 0.70 GLUCOSE MG/DL BLOOD mg/dL 74 CALCIUM MG/DL BLOOD mg/dL 9.2 ANION GAP BLOOD mmol/L 13 ASSESSMENT AND PLAN Principal Problem: Cerebrovascular accident Acute R MCA CVA Left hemiplegia /p TNK and MT and TICI2b revascularization on 10/19. Developed MCA syndrome s/p hemicrani. 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 - MRI brain w/wo done (11/10): cortical enhancement along the right frontal parietal and temporal regions 2/2 infarct progression but can't rule out cerebritis or infections.LP not concerning, however. -- glenis PEG fluid collection: Improved on abx - Urology replaced puentes (11/09-) TTE showed mobile aortic valve vegetation. IV abxs HTN Continue meds Migraine without aura Pian control GERD PPI Oral contraceptive use DVT Prophylaxis Obesity BMI 36 Nutrition consult Abn LFT Check hep screen Watch with statin D Pain management Today's pain score FEN. Nutrition consult for evaluation of nutritional status and the best diet. And for BMI evaluation and education regarding maintaining a healthy BMI Bladder management Voiding ok Bowel management . Titrate bowel medications for constipation/diarrhea. Skin. Nursing to address skin care throughout stay. Turn every 2 hrs Sleep. Monitor sleep-wake cycle. High Fall risk- Fall precautions GI Prophylaxis: DVT Prophylaxis: Full Resuscitation D/W patient , and attending physician about test results and treatment plan .No family in the room.Patient requiring monitoring of BP and HR while doing 3 hour intensive exercises to avoid fluctuations and hypotension . Aswell as monitoring of nutritional and fluid status , by weights, leg edema .Notified staff and patient to notify me of any change inconditions or new problems Electronically signed by: NGHIA PRYOR MD, at [facility] basically DUI may be GI need a I diving lysis consult subacute S do * Roland Mas, RD - 12/04/2022 10:19 AM CDT CLINICAL NUTRITION REASSESSMENT: Pt seen for follow up. Pt reports appetite is good, denies GI complaints. Receiving Pureed (4)/Dysphagia 1 diet with Mildly Thick (2)/[employer] liquids; recorded po intake averaged 84% x 7 meals. Pt c/oconsistency of Thrive, would prefer Magic Cup. Magic cup had issues with availability in the past few months; switched to Thrive d/t similar product and better availability. Thrive (High Calorie HighProtein Ice Cream) provides 270 anahy, 9 grams protein and 33 grams carb per 6 oz serving. Weight down 9 lbs in past week. Labs reviewed. Hgb/hematocrit low. Skin care continues. Bowels moving. No new meds. Per RN, would benefit from increased free water flush d/t concentrated urine. Currently receiving 300 mL flushes per day; increase to 150 mL every 3 hours to provide 900 mL/day. Recommendation: Advance diet per [employer] Continue Thrive TID If po intake remains > 50% meals, discontinue TF Increase free water flush to 150 mL every 4 hours Patient Active Problem List Diagnosis Cerebrovascular accident Hypertension GERD Weight: Admit Weight: 198 lb (89.8 kg) (11/17/22 1720) Weight Method: Bed scale (11/17/22 1720) Latest Weight: 189 lb (85.7 kg) (12/01/22 0400) Weight Method: Bed scale (12/01/22 0400) Weight Comment: down 9 lbs in past week Dietary Orders (From admission, onward) Start Ordered 11/29/22 1700 Nutritional supplement Magic Cup; Oral 3 times daily with meals Comments: Send chocolate Thrive TID End/Expires: Until Specified Question Answer Comment Select Supplement: Magic Cup Administration Route: Oral Place order in third green party system. Done 11/29/22 1250 11/29/22 1250 Jevity 1.5; Tube Feeding Bolus (mL): 240; Tube Feeding Bolus frequency: if po intake < 50% meals; Tube Feeding water flush (mL): 50; Water flush frequency: Every 4 hours Diet effective now End/Expires: Until Specified Question Answer Comment Tube Feeding Formula: Jevity 1.5 Tube Feeding Bolus (mL): 240 Tube Feeding Bolus frequency: if po intake < 50% meals Tube Feeding water flush (mL): 50 Water flush frequency: Every [address] order in third green party system. Done 11/29/22 1250 11/27/22 1516 Adult Diet Regular; 4 Pureed (NDD I); 2 Mildly Thick ([employer]) Diet effective now End/Expires: Until Specified References: IDDSI Website Question Answer Comment Diet Type: Regular Diet Texture: 4 Pureed (NDD I) Liquid Consistency: 2 Mildly Thick ([employer]) Place order in third green party system. Done 11/27/22 1515 Food Allergies: No known food allergies. Food/Nutrient Intake: P.O. (mL): 240 mL Supplement Consumed (mL): 240 mL Percent Meal Eaten (%): 100 of Last Documented Meal Difficulty Chewing or Swallowing: Yes (Comment) Nutrition Related Concerns: . Nutrition Related Concerns Nutrition Related Concerns: Swallowing NutritionSupport: Nutrition Support: Yes Select Nutrition Support: Enteral Enteral Route: PEG New Medications: No new nutrition related meds Relevant Labs: Most recent labs reviewed. H/H: Recent Labs Lab Units 12/04/22 0335 HGB GM/DL BLOOD gm/dL 10.2* HCT % BLOOD % 32.5* Recent Labs Lab Units 12/04/22 0335 SODIUM MMOL/L BLOOD mmol/L 139 POTASSIUM MMOL/L BLOOD mmol/L 4.1 CHLORIDE mmol/L 104 CO2 mmol/L 22 BUN MG/DL BLOOD mg/dL 10 CREATININE mg/dL 0.70 GLUCOSE MG/DL BLOOD mg/dL 74 CALCIUM MG/DL BLOOD mg/dL 9.2 ANION GAP BLOOD mmol/L 13 Skin: . PEG-J (double port) BIK-I-Pluukssz Status: Clean, Dry [REMOVED] Peripheral IV Left Antecubital-Dressing Status: Clean, Dry, Intact Last BM: Bowel Occurrence: Continent (12/03/22 1836) Care Plans: Plan of Care - Nutrition Care Plans 1 Author: Roland Mas RD Service: -- Author Type: Registered Dietitian Filed: 12/04/2022 10:19 AM Date of Service: 12/04/2022 10:18 AM Status: Signed Legal Coordinator: Roland Mas RD (Registered Dietitian) Problem: Swallowing Difficulty Description: Impaired or difficult movement of food and liquid within the oral cavity to the stomach. Related to: Motor causes, e.g., neurological or muscular disorders, such as cerebral palsy, stroke,multiple sclerosis, scleroderma; or prematurity, altered suck, swallow, breathe patterns, encephalopathy As evidenced by: modified consistency diet. Goal: Improve Nutritional Status Outcome: Progressing Flowsheets (Taken 12/04/2022 1018) Meals and Snacks: (pureed diet with mildly thick liquids) Texture modified diet Enteral and Parenteral Nutrition: (bolus 240 mL Jev 1.5 if po < 50% intake) Enteral nutrition Medical Food Supplement Therapy: (chocolate Thrive TID) Commercial beverage/Oral nutrition supplement Education Needs: none Monitor: po intake, supplement intake, need for EN, weight, labs, skin, BMs Continue to follow every 3-5 days Roland Lewis MS, RD/MELVA [employer] [id number] 12/04/22 10:19 AM CDT * Yamileth Frias MD - 12/04/2022 10:10 AM CDT PM&R PROGRESS NOTE This is Face to Face Visit note Consuelo Darby is a 42 y.o. female patient. Pain well controlled , no increased headaches improvements with therapy. Continue to benefit from inpatient rehab stay REVIEW OF FUNCTIONAL STATUS Functional Status PT Data (since 12/01/2022) Value Time User Bed Mobility Comment Sit to/from supine on mat with max assist of one for left side assist, lift assist at trunk. Sit to/from supine in hospital bed with low air loss mattress, inflated for stability- max of one and min/mod of another for safety. 12/01/2022 5:42 PM Kellie Moran, PT Gait Analysis Sling to support left UE. Francisco wrap to assist left ankle DF. Helmet in place. Pt ambulated in parallel bars: 8ft x2. Max assist of one to advance and block left leg, trunk support, facilitate wt shift right. Min/mod of another for trunk support and occassional assist of left leg. Close w/c for safety. 12/01/2022 5:42 PM Kellie Moran, PT WC Analysis Pt requiring tilt in space w/c at this time to provide appropriate head and trunk support, position changes. Order from chandana Dietrich to remove helmet when up in chair, stationary. 12/01/2022 5:42 PM Kellie Moran PT Functional Status OT Data (since 12/01/2022) None EATING: pt is on water protocol. She was provided water container and had several sips of water during session (she did oral hygiene prior to start of session). No coughing noted. ORAL HYGIENE: supervision. TOILETING: total assist; two person assist needed (one person to assist with standing and a second person to assist with clothing management and hygiene). BATHING: UB DRESSING: LB DRESSING: PUTTING ON/TAKING OFF FOOTWEAR: dependent when sitting on EOB ROLL LEFT AND RIGHT: SIT TO LYING: two person assist for safety. LYING TO SITTING: SIT TO STAND: max assist of one; pt stood 2x for about 1 min each with max assist for standing balance. BED TO CHAIR TRANSFER: sliding board transfers w/c to bed with two person assist for safety (especially with slick PELON mattress). TOILET TRANSFER: sliding board transfers on and off of drop arm commode, two person assist for safety. Pt transferred going toward right each time. Pt's family requested to have her try a bariatric drop arm commode instead of a regular one for next time to see if it's more comfortable for her. She was provided with a bariatric drop arm commode. Sitting balance on commode required CGA for balance (sitting balance is improving). Patient Active Problem List Diagnosis Cerebrovascular accident Hypertension Past Medical History: Diagnosis Date Gastroesophageal reflux disease Hypertension Migraine Current Facility-Administered Medications: acetaminophen (TYLENOL) tablet 500 mg, 500 mg, Per Tube, Q6H PRN, Nghia Pryor MD, 500 mg at 12/04/22 0139 baclofen (LIORESAL) tablet 5 mg, 5 mg, Oral, Nightly, Yamileth Frias MD, 5 mg at 12/03/22 215 bethanechol (URECHOLINE) tablet 25 mg, 25 mg, Oral, 3 times per day, Yamileth Frias MD, 25 mg at 12/04/22 0802 bisacodyl (DULCOLAX) suppository 10 mg, 10 mg, Rectal, Daily PRN, Nghia Pryor MD, 10 mg at 12/02/22 1054 cholecalciferol (VITAMIN D3) tablet 2,000 Units, 2,000 Units, Per Tube, Once a day, Nghia Pryor MD, 2,000 Units at 12/04/22 0802 cyclobenzaprine (FLEXERIL) tablet 5 mg, 5 mg, Oral, 3 times per day, Loy Dawson MD, 5 mg at 12/04/22 08 gabapentin (NEURONTIN) capsule 300 mg, 300 mg, Oral, 3 times per day, Loy Dawson MD, 300 mg at 12/04/22 0802 guaiFENesin (ROBITUSSIN) 100 MG/5ML liquid 10 mL, 10 mL, Enteral, BID PRN, Nghia Pryor MD hydrocortisone (ANUSOL-HC) 2.5 % rectal cream, , Rectal, 2 times per day, Loy Dawson MD, Given at 12/04/22 08 hydrOXYzine (ATARAX) tablet 25 mg, 25 mg, Oral, Q6H PRN, Yamileth Frias MD, 25 mg at 12/04/22138 lidocaine (LIDOCARE) 4 % patch 1 patch, 1 patch, Transdermal, Once a day, Loy Dawson MD, 1 patch at 12/04/22801 loratadine (CLARITIN) tablet 10 mg, 10 mg, Enteral, Once a day, Nghia Pryor MD, 10 mg at 12/04/22801 metoprolol tartrate (LOPRESSOR) tablet 25 mg, 25 mg, Enteral, 2 times per day, Nghia Pryor MD, 25 mg at 12/04/22801 ondansetron ODT (ZOFRAN-ODT) disintegrating tablet 4 mg, 4 mg, Per Tube, Q6H PRN, Marlee Bradley MD, 4 mg at 12/04/22138 oxyCODONE (ROXICODONE) immediate release tablet 5 mg, 5 mg, Enteral, Q4H PRN, Marlee Bradley MD, 5mg at 12/04/22909 oxyCODONE (ROXICODONE) immediate release tablet 5 mg, 5 mg, Oral, Daily at 0600, Yamileth Frias MD, 5 mg at 12/04/22621 pantoprazole-sodium bicarbonate 2mg/ml oral liquid 40 mg, 40 mg, Per Tube, Daily bef breakfast, Marlee Bradley MD, 40 mg at 12/04/22621 polyethylene glycol (MIRALAX) packet 17 g, 17 g, Per Tube, BID PRN, Yamileth Frias MD, 17 g at 12/03/22924 senna-docusate (SENOKOT-S) 8.6-50 MG tablet 2 tablet, 2 tablet, Enteral, Daily PRN, Nghia Pryor MD, 2 tablet at 12/03/22924 simethicone (MYLICON) chewable tablet 80 mg, 80 mg, Per Tube, BID PRN, Marlee Bradley MD, 80 mg at11/28/222051 tamsulosin (FLOMAX) 24 hr capsule 0.4 mg, 0.4 mg, Enteral, After Breakfast, Nghia Pryor MD, 0.4 mg at 12/04/22 0802 triamcinolone (KENALOG) 0.1 % ointment, , Apply externally, BID PRN, Nghia Pryor MD, Given at 11/20/222014 verapamil (CALAN) tablet 40 mg, 40 mg, Enteral, Q8H SENDY, Nghia Pryor MD, 40 mg at 12/03/222215 Warfarin Per Policy, , Does not apply, Daily, Nghia Pryor MD warfarin tablet 3 mg, 3 mg, Oral, Once, Nghia Pryor MD Review of Systems: Review of Systems Constitutional: Negative for appetite change. HENT: Negative for congestion. Respiratory: Negative for shortness of breath. Cardiovascular: Positive for leg swelling. Genitourinary: Negative for flank pain. Musculoskeletal: Negative for arthralgias and joint swelling. Neurological: Negative for headaches. Psychiatric/Behavioral: The patient is nervous/anxious. Physical Exam Vitals: 12/04/22 0739 BP: 103/63 Pulse: 82 Resp: 18 Temp: 97.9 ??F (36.6 ??C) SpO2: 93% Physical Exam Constitutional: General: She is not in acute distress. HENT: Head: Atraumatic. Eyes: Conjunctiva/sclera: Conjunctivae normal. Cardiovascular: Rate and Rhythm: Normal rate. Pulmonary: Effort: Pulmonary effort is normal. Abdominal: General: There is no distension. Skin: Findings: No erythema. Neurological: Coordination: Coordination abnormal. Neurologic Exam Lab Data Reviewed current lab results available to me today. Lab Results Component Value Date WBC 8.2 12/04/2022 HGB 10.2 (L) 12/04/2022 HCT 32.5 (L) 12/04/2022 MCV 95.6 12/04/2022 PLT 269 12/04/2022 Lab Results Component Value Date GLUCOSE 74 12/04/2022 CALCIUM 9.2 12/04/2022 NA 139 12/04/2022 K 4.1 12/04/2022 CO2 22 12/04/2022 CL 104 12/04/2022 BUN 10 12/04/2022 CREATININE 0.70 12/04/2022 ANIONGAP 13 12/04/2022 Imaging Reviewed current imaging results available to me today. XR abdomen 1 vws Result Date: 11/19/2022 NARRATIVE: Procedure: XR ABDOMEN KUB Exam Date: 11/19/2022 9:38 AM Location: [facility] Indication: abdominal fullness, reflux. Patient on peg tube feeding FINDINGS/IMPRESSION: Air is seen throughout the colonic structures. No dilated bowel loops are identified. There is no evidence tosuggest obstruction. There is no gross free intraperitoneal air. There does appear to be a gastrostomy tube superimposing the stomach. > Interpreting Provider: Rebel Hernandez MD on 11/19/2022 9:[address] head WO contrast Result Date: 11/19/2022 NARRATIVE: Procedure: CT HEAD WO CONTRAST Exam Date: 11/19/2022 9:31 AM Location: [facility] CT head without IV contrast INDICATION: worsening pain TECHNIQUE: CT examination of the head was performed from the base of the skull through the vertex using multiple axial images without IV contrast. FINDINGS: No old studies are available for comparison purposes. VIZ AI was utilized. Patient is status post right-sided craniectomy. There is extensive encephalomalacia involving the right frontal lobe with with some minimal involvement of the temporal and parietal lobe. There is no acute infarct. There is no mass. There is no hemorrhage. There are no extra-axial fluid collections. There is no midline shift. IMPRESSION: IMPRESSION: Right frontal craniectomy with extensive encephalomalacia involving the right frontal lobe as well as some involvement of the parietal and temporal lobes. > Interpreting Provider: Rebel Hernandez MD on 11/19/2022 9:36 AM Assessment & Plan: Consuelo Darby is a 42 y.o. female patient with Cerebrovascular accident functional impairment for rehab Cerebrovascular accident PT, OT for gait training and ADL training, Nursing for bowel and bladder care. Speech therapy for swallow evaluation and cognitive evaluation. Acute R MCA CVA Left dense hemiplegia LUE / LLE : 0/5 Left face droop Left neglect Spasticity: SENDY Baclofen 5 mg HS And flexeril TID SENDY Oxy before therapy from 12/02 s/p TNK and MT and TICI2b revascularization on 10/19. 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 S /P IV abxs HTN Continue metoprolol , verapamil # headaches: On Tylenol and Oxy PRN Pian control # Neurogenic bladder: puentes removed on 11/27 Urology consult Flomax HS Urecholine 25 mg TID from 11/27 Skin/Wounds: - Skin integrity and Pressure ulcer prevention: frequent repositioning and adequate pressure relief. Maintain clean, dry skin. If needed, q2 hour turns when in bed and regular skin checks, application of protective barrier cream, toileting schedule. Wound RN consult Bowel & Bladder - monitor bowel movement - adjust scheduled and PRN bowel regimen as needed - monitor for adequate urinary output - should suspicion for urinary retention arise, PVR of random bladder scan will be performed for further assessment Continue current medical management. RECOMMENDATIONS At the current time, this inpatient hospital rehabilitation stay is medically necessary to achieve important health and functional goals. The patient requires frequent physician visits, 24-hour rehabilitation nursing, and a coordinated intensive rehabilitation program as described above to address complex medical, nursing, and rehabilitation needs. Continue inpatient comprehensive interdisciplinary rehabilitation to address strengthening, mobility skills, self care, cognitive functioning, speech, communication and swallowing needs. The patient continues to require the interdisciplinary team approach and 24 hour monitoring. DIET: Dietary Orders (From admission, onward) Start Ordered 11/29/22 1700 Nutritional supplement Magic Cup; Oral 3 times daily with meals Comments: Send chocolate Thrive TID End/Expires: Until Specified Question Answer Comment Select Supplement: Magic Cup Administration Route: Oral Place order in third green party system. Done 11/29/22 1250 11/29/22 1250 Jevity 1.5; Tube Feeding Bolus (mL): 240; Tube Feeding Bolus frequency: if po intake < 50% meals; Tube Feeding water flush (mL): 50; Water flush frequency: Every 4 hours Diet effective now End/Expires: Until Specified Question Answer Comment Tube Feeding Formula: Jevity 1.5 Tube Feeding Bolus (mL): 240 Tube Feeding Bolus frequency: if po intake < 50% meals Tube Feeding water flush (mL): 50 Water flush frequency: Every [address] order in third green party system. Done 11/29/22 1250 11/27/22 1516 Adult Diet Regular; 4 Pureed (NDD I); 2 Mildly Thick ([employer]) Diet effective now End/Expires: Until Specified References: [employer] Website Question Answer Comment Diet Type: Regular Diet Texture: 4 Pureed (NDD I) Liquid Consistency: 2 Mildly Thick ([employer]) Place order in third green party system. Done 11/27/22 1515 Patient Active Problem List Diagnosis Cerebrovascular accident Hypertension # Vision deficits: Hand Rigger following CHIN: YAMILETH FRIAS MD * Bhakti Machuca PharmD - 12/03/2022 10:43 AM CDT [facility] Pharmacy Note Pharmacy Consultation - Warfarin Dosing and Monitoring Consuelo Daryb is a 42 y.o. female who has been consulted for pharmacy warfarin dosing and monitoring. Labs: INR Date Value Ref Range Status 12/03/2022 2.4 (H) 0.9 - 1.1 Final 12/02/2022 2.5 (H) 0.9 - 1.1 Final 12/01/2022 2.5 (H) 0.9 - 1.1 Final 11/30/2022 2.7 (H) 0.9 - 1.1 Final 11/29/2022 2.5 (H) 0.9 - 1.1 Final HGB gm/dL Blood Date Value Ref Range Status 11/30/2022 10.0 (L) 12.0 - 15.6 gm/dL Final 11/27/2022 9.9 (L) 12.0 - 15.6 gm/dL Final 11/23/2022 10.4 (L) 12.0 - 15.6 gm/dL Final HCT % Blood Date Value Ref Range Status 11/30/2022 32.1 (L) 35.9 - 45.5 % Final 11/27/2022 31.8 (L) 35.9 - 45.5 % Final 11/23/2022 35.0 (L) 35.9 - 45.5 % Final Plt Ct X(10)9/L Blood Date Value Ref Range Status 11/30/2022 254 153 - 416 x10E9/L Final 11/27/2022 291 153 - 416 x10E9/L Final 11/23/2022 439 (H) 153 - 416 x10E9/L Final Warfarin Dose History: Date INR Dose (mg) Comments 12/02/22 2.5 4 none 12/03/22 2.4 4 Assessment: Warfarin Indication: Embolic Stroke INR Goal: 2-3 Today's INR is 2.4 and is Therapeutic. Bridging Therapy: No Risk Factors for Bleeding: none Pertinent Medication Related to Warfarin: none Plan: 1. Administer warfarin 4mg by mouth one time this evening 2. Check INR tomorrow. Pharmacy will follow up with INR recheck and order subsequent warfarin dosespending INR results. 3. Pharmacy will provide warfarin education to the patient on discharge 4.The patient will continue to be monitored by the pharmacy department for the duration of the length of stay for assurance of medication safety and efficacy. Stephanie Machuca PharmD * Loy Dawson MD - 12/03/2022 7:41 AM CDT HOSPITALIST PROGRESS NOTE Patient Name: Consuelo Darby : 1980 Medical Record: [id number] ATTENDING Yamileth Frias MD SUBJECTIVE 11/19 The patient is being seen for follow-up of Cerebrovascular accident. BP, BS , HR, labs, strength. .Chief Complaint CT head ok Headache much better Got upto chair without helmet =did ok Working on better helmet Consider spinal headache if recurs- d/w dr Villagran strength improving, able to do therapy ok. No chest pain, no SOB, no dizziness, no palpitations, no new neurologic symptoms. No cough, No nausea or vomiting, No abdominal pain. History also obtained from Nurse and staff about how the patient did overnight and during the day strength improving, able to do therapy ok. 11/20 Patient seen an examined Doing alright No new issues to report Vitals reviewed 11/21 Patient seen and examined earlier No new issues to report Vitals reviewed Resting comfortably 11/22 Patient seen and examined Doing alright at this time Resting comfortably Vitals reviewed 11/23 The patient was seen in the room this afternoon. The patient currently does not report any chest pain, shortness present nausea or vomiting No reported issues from the floor nurse. The most recent labs and vital signs were reviewed. 11/24: Patient seen and examined this morning. Patient complaining of bilateral hip pain. Have placed order for Flexeril and lidocaine patch. No acute events reported overnight. Blood work and vital signs remained stable. Continue current medical management. 11/25: Patient seen and examined this morning. Patient continues to complain of bilateral hip pain. Continue lidocaine patches. Have scheduled Flexeril 5 mg t.i.d.. Continue current medical management. 11/26: Patient seen and examined this morning. Patient continues to complain of hip pain. Follow up left hip x-ray. Follow up with PM&R for further recommendations. Continue Lovenox. Have discussed Coumadin dosing with pharmacy. Goal to have INR from 2-3. No acute events reported overnight. Continue current medical management. 11/27:Patient seen and examined this morning. Vitals and labs reviewed. Resting comfortably. No acute events overnight. Continue current medical management. 11/30 Patient seen and examined Doing ok. No new issues to report 12/01 Patient seen and examined earlier this afternoon. Things are going well. No new issues to report. 12/02:Patient seen and examined this morning. Vitals and labs reviewed. Resting comfortably. No acute events overnight. Continue current medical management. 12/03: Patient seen and examined this morning. Patient complaining of sharp shooting pain around herleft hip area. Have started gabapentin 300 mg t.i.d.. Vital signs and blood work reviewed. INR at goal. Continue current medical management. BRIEF HISTORY The patient is a 42 y.o. y/o female with history of HTN, GERD, presented tO ED with new left sided weakness and slurred speech Diagnosed with acute CVA s/p TNK and m1 occlusion S/P MT . c/b R iliac and common femoral artery occlusion s/p thrombectomy. Developed Fever: consulted ID, broaden abx, Cxs. - MRI brain w/wo done (11/10): cortical enhancement along the right frontal parietal and temporal regions 2/2 infarct progression but can't rule out cerebritis or infections.however LP neg. Also had glenis PEG fluid collection: Improved on abx - Urology replaced puentes (11/09-) Extubated, now on RA HOME Medications Prior to Admission medications Medication Sig Start Date End Date Taking? Authorizing Provider cetirizine (ZyrTEC) 10 MG tablet Take 1 tablet (10 mg total) by mouth in the morning. Yes Historical Provider, omeprazole (PriLOSEC) 20 MG capsule Take 1 capsule (20 mg total) by mouth in the morning. Yes Historical Provider, amitriptyline (ELAVIL) 50 MG tablet 2 tablets (100 mg total) nightly. Historical Provider, CURRENT Medications Current Facility-Administered Medications: acetaminophen (TYLENOL) tablet 500 mg, 500 mg, Per Tube, Q6H PRN, Nghia Pryor MD, 500 mg at 12/02/22622 baclofen (LIORESAL) tablet 5 mg, 5 mg, Oral, Nightly, Yamileth Frias MD, 5 mg at 12/02/222116 bethanechol (URECHOLINE) tablet 25 mg, 25 mg, Oral, 3 times per day, Yamileth Frias MD, 25 mg at 12/02/222116 bisacodyl (DULCOLAX) suppository 10 mg, 10 mg, Rectal, Daily PRN, Nghia Pryor MD, 10 mg at 12/02/22 1054 cholecalciferol (VITAMIN D3) tablet 2,000 Units, 2,000 Units, Per Tube, Once a day, Nghia Pryor MD, 2,000 Units at 12/02/22 1027 cyclobenzaprine (FLEXERIL) tablet 5 mg, 5 mg, Oral, 3 times per day, Loy Dawson MD, 5 mg at 12/03/22 0539 gabapentin (NEURONTIN) capsule 300 mg, 300 mg, Oral, 3 times per day, Loy Dawson MD guaiFENesin (ROBITUSSIN) 100 MG/5ML liquid 10 mL, 10 mL, Enteral, BID PRN, Nghia Pryor MD hydrocortisone (ANUSOL-HC) 2.5 % rectal cream, , Rectal, 2 times per day, Loy Dawson MD, Given at 12/02/222116 hydrOXYzine (ATARAX) tablet 25 mg, 25 mg, Oral, Q6H PRN, Yamileth Frias MD, 25 mg at 12/03/22 0144 lidocaine (LIDOCARE) 4 % patch 1 patch, 1 patch, Transdermal, Once a day, Loy Dawson MD, 1 patch at 12/02/22 1028 loratadine (CLARITIN) tablet 10 mg, 10 mg, Enteral, Once a day, Nghia Pryor MD, 10 mg at 12/02/22 1029 metoprolol tartrate (LOPRESSOR) tablet 25 mg, 25 mg, Enteral, 2 times per day, Nghia Pryor MD, 25 mg at 12/02/22 211 ondansetron ODT (ZOFRAN-ODT) disintegrating tablet 4 mg, 4 mg, Per Tube, Q6H PRN, Marlee Bradley MD, 4 mg at 12/01/22 0900 oxyCODONE (ROXICODONE) immediate release tablet 5 mg, 5 mg, Enteral, Q4H PRN, Marlee Bradley MD, 5mg at 12/03/22 0144 oxyCODONE (ROXICODONE) immediate release tablet 5 mg, 5 mg, Oral, Daily at 0600, Yamileth Frias MD, 5 mg at 12/03/22 0540 pantoprazole-sodium bicarbonate 2mg/ml oral liquid 40 mg, 40 mg, Per Tube, Daily bef breakfast, Marlee Bradley MD, 40 mg at 12/03/22 0540 senna-docusate (SENOKOT-S) 8.6-50 MG tablet 2 tablet, 2 tablet, Enteral, Daily PRN, Nghia Pryor MD simethicone (MYLICON) chewable tablet 80 mg, 80 mg, Per Tube, BID PRN, Marlee Bradley MD, 80 mg at11/28/222051 tamsulosin (FLOMAX) 24 hr capsule 0.4 mg, 0.4 mg, Enteral, After Breakfast, Nghia Pryor MD, 0.4 mg at 12/02/221027 triamcinolone (KENALOG) 0.1 % ointment, , Apply externally, BID PRN, Nghia Pryor MD, Given at 11/20/222014 verapamil (CALAN) tablet 40 mg, 40 mg, Enteral, Q8H SENDY, Nghia Pryor MD, 40 mg at 12/03/22 0144 Warfarin Per Policy, , Does not apply, Daily, Nghia Pryor MD DATA Vitals: 12/02/22 0756 12/02/22 1920 12/03/22 0140 12/03/22 0738 BP: 109/74 115/77 113/74 122/86 Pulse: 75 84 80 97 Resp: Temp: 97.4 ??F (36.3 ??C) 97.4 ??F (36.3 ??C) 97.7 ??F (36.5 ??C) TempSrc: Oral Oral Axillary SpO2: 96% 95% 96% Weight: Height: Weights (last 3 days) Date/Time Weight 12/01/22 0400 189 lb (85.7 kg) @ANTICOAGSUMMARY@ @FLOWDATE(2706:LAST)@ Intake/Output Summary (Last 24 hours) at 12/03/2022 0741 Last data filed at 12/03/2022 0040 Gross per 24 hour Intake 760 ml Output 620 ml Net 140 ml PHYSICAL EXAM General appearance: awake, alert, cooperative, no distress HEENT: Normocephalic, No icterus, No oral lesions, Oral and nasal mucosa moist Neck: Supple, no lymphadenopathy Eyes: EOMI, Conjunctiva normal, No discharge Cardiovascular: Normal heart rate, Normal rhythm, No murmurs, No rubs, No gallops Respiratory: Normal breath sounds, No respiratory distress, No wheezing, No rhonchi, No rales, No chest tenderness. GI: Bowel sounds normal, Soft, No tenderness, No rebound or guarding, No masses. Abdomen: soft without mass, non-tender, with normal bowel sounds Extremities: no clubbing, cyanosis or edema, no calf tenderness Musculoskeletal:no swelling of joints.no redness Psychologic: Mood ok, no suicidal ideation. Skin: No rash. 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 LABS CBC with Differential: No results found for: WBC, RBC, HGB, HEMOGLOBIN, HCT, HEMATOCRIT, PLT, MCV, MCH, MCHC, RDW, NEUTPERCENT, MONOPERCENT, LYMPHPERCENT, BASOPERCENT [ BMP: No results found for: NA, SODIUM, K, POTASSIUM, CL, CO2, BUN, CREATININE, LABCREA, EGFR, GLU, LABGLUC, GLUCOSE, GLUCOSEFL, CALCIUM, CALCIUMUR, ANIONGAP MG/PHOS: No results found for: MG, PHOS CKMB: No components found for: CKMB;2 PT/INR: Lab Results Component Value Date INR 2.4 (H) 12/03/2022 BNP: No results found for: BNP Last 3 Troponin: No components found for: TROPONINI;3 U/A: No results found for: COLORU, CLARITYU, GLUCOSEU, BILIRUBINUR, KETONESU, SPECGRAV, BLOODU, PHUR, UROBILINOGEN, NITRITE, LEUKOCYTESUR, MUCUS, RBCUA, WBCUA CMP: No results found for: NA, SODIUM, K, POTASSIUM, CL, CO2, BUN, CREATININE, LABCREA, GLU, LABGLUC, GLUCOSE, PROT, CALCIUM, ALBUMIN, BILITOT, ALKALINEPHO, ALT, AST, ANIONGAP, EGFR LFT's: No results found for: ALB, PROT Ionized Calcium: No components found for: IONCA ABG: No results found for: PHART, [id number], PO2ART, HBO2HRI, BEART, [id number] HgBA1c: No results found for: HGBA1C Lipid Panel: No results found for: CHOL, TRIG, HDL TSH: No results found for: TSH Lab Results Component Value Date GLUCOSE 84 11/30/2022 BUN 16 11/30/2022 CREATININE 0.72 11/30/2022 NA 142 11/30/2022 K 3.8 11/30/2022 CL 105 11/30/2022 CO2 25 11/30/2022 CALCIUM 9.1 11/30/2022 @RESU CBC: Recent Labs Lab Units 11/30/22 0229 WBC X(10)9/L BLOOD x10E9/L 6.7 HGB GM/DL BLOOD gm/dL 10.0* PLT CT X(10)9/L BLOOD x10E9/L 254 MCV FL BLOOD fl 95.0 BMP: Recent Labs Lab Units 11/30/22 0229 SODIUM MMOL/L BLOOD mmol/L 142 POTASSIUM MMOL/L BLOOD mmol/L 3.8 CHLORIDE mmol/L 105 CO2 mmol/L 25 BUN MG/DL BLOOD mg/dL 16 CREATININE mg/dL 0.72 GLUCOSE MG/DL BLOOD mg/dL 84 CALCIUM MG/DL BLOOD mg/dL 9.1 I reviewed the EKG tracing/Xray Recent Labs Lab Units 11/30/22 0229 SODIUM MMOL/L BLOOD mmol/L 142 POTASSIUM MMOL/L BLOOD mmol/L 3.8 CHLORIDE mmol/L 105 CO2 mmol/L 25 BUN MG/DL BLOOD mg/dL 16 CREATININE mg/dL 0.72 GLUCOSE MG/DL BLOOD mg/dL 84 CALCIUM MG/DL BLOOD mg/dL 9.1 ANION GAP BLOOD mmol/L 12 ASSESSMENT AND PLAN Principal Problem: Cerebrovascular accident Acute R MCA CVA Left hemiplegia /p TNK and MT and TICI2b revascularization on 10/19. Developed MCA syndrome s/p hemicrani. 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 - MRI brain w/wo done (11/10): cortical enhancement along the right frontal parietal and temporal regions 2/2 infarct progression but can't rule out cerebritis or infections.LP not concerning, however. -- glenis PEG fluid collection: Improved on abx - Urology replaced puentes (11/09-) TTE showed mobile aortic valve vegetation. IV abxs HTN Continue meds Migraine without aura Pian control GERD PPI Oral contraceptive use DVT Prophylaxis Obesity BMI 36 Nutrition consult Abn LFT Check hep screen Watch with statin D Pain management Today's pain score FEN. Nutrition consult for evaluation of nutritional status and the best diet. And for BMI evaluation and education regarding maintaining a healthy BMI Bladder management Voiding ok Bowel management . Titrate bowel medications for constipation/diarrhea. Skin. Nursing to address skin care throughout stay. Turn every 2 hrs Sleep. Monitor sleep-wake cycle. High Fall risk- Fall precautions GI Prophylaxis: DVT Prophylaxis: Full Resuscitation D/W patient , and attending physician about test results and treatment plan .No family in the room.Patient requiring monitoring of BP and HR while doing 3 hour intensive exercises to avoid fluctuations and hypotension . Aswell as monitoring of nutritional and fluid status , by weights, leg edema .Notified staff and patient to notify me of any change inconditions or new problems Electronically signed by: LOY DAWSON MD, at [place] basically DUI may be GI need a I diving lysis consult subacute S do * Loy Dawson MD - 12/02/2022 10:07 AM CDT HOSPITALIST PROGRESS NOTE Patient Name: Consuelo Darby : 1980 Medical Record: [id number] ATTENDING Yamileth Frias MD SUBJECTIVE 11/19 The patient is being seen for follow-up of Cerebrovascular accident. BP, BS , HR, labs, strength. .Chief Complaint CT head ok Headache much better Got upto chair without helmet =did ok Working on better helmet Consider spinal headache if recurs- d/w dr Villagran strength improving, able to do therapy ok. No chest pain, no SOB, no dizziness, no palpitations, no new neurologic symptoms. No cough, No nausea or vomiting, No abdominal pain. History also obtained from Nurse and staff about how the patient did overnight and during the day strength improving, able to do therapy ok. 11/20 Patient seen an examined Doing alright No new issues to report Vitals reviewed 11/21 Patient seen and examined earlier No new issues to report Vitals reviewed Resting comfortably 11/22 Patient seen and examined Doing alright at this time Resting comfortably Vitals reviewed 11/23 The patient was seen in the room this afternoon. The patient currently does not report any chest pain, shortness present nausea or vomiting No reported issues from the floor nurse. The most recent labs and vital signs were reviewed. 11/24: Patient seen and examined this morning. Patient complaining of bilateral hip pain. Have placed order for Flexeril and lidocaine patch. No acute events reported overnight. Blood work and vital signs remained stable. Continue current medical management. 11/25: Patient seen and examined this morning. Patient continues to complain of bilateral hip pain. Continue lidocaine patches. Have scheduled Flexeril 5 mg t.i.d.. Continue current medical management. 11/26: Patient seen and examined this morning. Patient continues to complain of hip pain. Follow up left hip x-ray. Follow up with PM&R for further recommendations. Continue Lovenox. Have discussed Coumadin dosing with pharmacy. Goal to have INR from 2-3. No acute events reported overnight. Continue current medical management. 11/27:Patient seen and examined this morning. Vitals and labs reviewed. Resting comfortably. No acute events overnight. Continue current medical management. 11/30 Patient seen and examined Doing ok. No new issues to report 12/01 Patient seen and examined earlier this afternoon. Things are going well. No new issues to report. 11/22:Patient seen and examined this morning. Vitals and labs reviewed. Resting comfortably. No acute events overnight. Continue current medical management. BRIEF HISTORY The patient is a 42 y.o. y/o female with history of HTN, GERD, presented tO ED with new left sided weakness and slurred speech Diagnosed with acute CVA s/p TNK and m1 occlusion S/P MT . c/b R iliac and common femoral artery occlusion s/p thrombectomy. Developed Fever: consulted ID, broaden abx, Cxs. - MRI brain w/wo done (11/10): cortical enhancement along the right frontal parietal and temporal regions 2/2 infarct progression but can't rule out cerebritis or infections.however LP neg. Also had glenis PEG fluid collection: Improved on abx - Urology replaced puentes (11/09-) Extubated, now on RA HOME Medications Prior to Admission medications Medication Sig Start Date End Date Taking? Authorizing Provider cetirizine (ZyrTEC) 10 MG tablet Take 1 tablet (10 mg total) by mouth in the morning. Yes Historical Provider, omeprazole (PriLOSEC) 20 MG capsule Take 1 capsule (20 mg total) by mouth in the morning. Yes Historical Provider, amitriptyline (ELAVIL) 50 MG tablet 2 tablets (100 mg total) nightly. Historical Provider, CURRENT Medications Current Facility-Administered Medications: acetaminophen (TYLENOL) tablet 500 mg, 500 mg, Per Tube, Q6H PRN, Nghia Pryor MD, 500 mg at 12/02/22622 baclofen (LIORESAL) tablet 5 mg, 5 mg, Oral, Nightly, Yamileth Frias MD, 5 mg at 12/01/222052 bethanechol (URECHOLINE) tablet 25 mg, 25 mg, Oral, 3 times per day, Yamileth Frias MD, 25 mg at 12/01/222052 bisacodyl (DULCOLAX) suppository 10 mg, 10 mg, Rectal, Daily PRN, Nghia Pryor MD cholecalciferol (VITAMIN D3) tablet 2,000 Units, 2,000 Units, Per Tube, Once a day, Nghia Pryor MD, 2,000 Units at 12/01/2240 cyclobenzaprine (FLEXERIL) tablet 5 mg, 5 mg, Oral, 3 times per day, Loy Dawson MD, 5 mg at 12/01/222052 guaiFENesin (ROBITUSSIN) 100 MG/5ML liquid 10 mL, 10 mL, Enteral, BID PRN, Nghia Pryor MD hydrocortisone (ANUSOL-HC) 2.5 % rectal cream, , Rectal, 2 times per day, Loy Dawson MD, Given at 12/01/222052 hydrOXYzine (ATARAX) tablet 25 mg, 25 mg, Oral, Q6H PRN, Yamileth Frias MD, 25 mg at 11/30/222131 lidocaine (LIDOCARE) 4 % patch 1 patch, 1 patch, Transdermal, Once a day, Loy Dawson MD, 1 patch at 12/01/22839 loratadine (CLARITIN) tablet 10 mg, 10 mg, Enteral, Once a day, Nghia Pryor MD, 10 mg at 12/01/22838 metoprolol tartrate (LOPRESSOR) tablet 25 mg, 25 mg, Enteral, 2 times per day, Nghia Pryor MD, 25 mg at 12/01/222052 ondansetron ODT (ZOFRAN-ODT) disintegrating tablet 4 mg, 4 mg, Per Tube, Q6H PRN, Marlee Bradley MD, 4 mg at 12/01/22 09 oxyCODONE (ROXICODONE) immediate release tablet 5 mg, 5 mg, Enteral, Q4H PRN, Marlee Bradley MD, 5mg at 12/01/22 182 oxyCODONE (ROXICODONE) immediate release tablet 5 mg, 5 mg, Oral, Daily at 0600, Yamileth Frias MD pantoprazole-sodium bicarbonate 2mg/ml oral liquid 40 mg, 40 mg, Per Tube, Daily bef breakfast, Marlee Bradley MD, 40 mg at 12/02/22 0625 senna-docusate (SENOKOT-S) 8.6-50 MG tablet 2 tablet, 2 tablet, Enteral, Daily PRN, Nghia Pryor MD simethicone (MYLICON) chewable tablet 80 mg, 80 mg, Per Tube, BID PRN, Marlee Bradley MD, 80 mg at11/28/222051 tamsulosin (FLOMAX) 24 hr capsule 0.4 mg, 0.4 mg, Enteral, After Breakfast, Nghia Pryor MD, 0.4 mg at 12/01/22 08 triamcinolone (KENALOG) 0.1 % ointment, , Apply externally, BID PRN, Nghia Pryor MD, Given at 11/20/222014 verapamil (CALAN) tablet 40 mg, 40 mg, Enteral, Q8H SENDY, Nghia Pryor MD, 40 mg at 12/02/22 0030 Warfarin Per Policy, , Does not apply, Daily, Nghia Pryor MD warfarin tablet 4 mg, 4 mg, Oral, Once, Yamileth Frias MD DATA Vitals: 12/01/22 1620 12/01/22 1920 12/02/22 0025 12/02/22 0756 BP: 112/65 101/64 114/72 109/74 Pulse: 80 80 75 Resp: 15 17 Temp: 97.4 ??F (36.3 ??C) 97.4 ??F (36.3 ??C) TempSrc: Oral Oral SpO2: 93% 96% Weight: Height: Weights (last 3 days) Date/Time Weight 12/01/22 0400 189 lb (85.7 kg) @ANTICOAGSUMMARY@ @FLOWDATE(3696:LAST)@ Intake/Output Summary (Last 24 hours) at 12/02/2022 1007 Last data filed at 12/02/2022 0800 Gross per 24 hour Intake 910 ml Output 0 ml Net 910 ml PHYSICAL EXAM General appearance: awake, alert, cooperative, no distress HEENT: Normocephalic, No icterus, No oral lesions, Oral and nasal mucosa moist Neck: Supple, no lymphadenopathy Eyes: EOMI, Conjunctiva normal, No discharge Cardiovascular: Normal heart rate, Normal rhythm, No murmurs, No rubs, No gallops Respiratory: Normal breath sounds, No respiratory distress, No wheezing, No rhonchi, No rales, No chest tenderness. GI: Bowel sounds normal, Soft, No tenderness, No rebound or guarding, No masses. Abdomen: soft without mass, non-tender, with normal bowel sounds Extremities: no clubbing, cyanosis or edema, no calf tenderness Musculoskeletal:no swelling of joints.no redness Psychologic: Mood ok, no suicidal ideation. Skin: No rash. 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 LABS CBC with Differential: Lab Results Component Value Date WBC 6.7 11/30/2022 HGB 10.0 (L) 11/30/2022 HCT 32.1 (L) 11/30/2022 PLT 254 11/30/2022 MCV 95.0 11/30/2022 MCH 29.6 11/30/2022 MCHC 31.2 11/30/2022 RDW 14.9 11/30/2022 [ BMP: Lab Results Component Value Date NA 142 11/30/2022 K 3.8 11/30/2022 CL 105 11/30/2022 CO2 25 11/30/2022 BUN 16 11/30/2022 CREATININE 0.72 11/30/2022 GLUCOSE 84 11/30/2022 CALCIUM 9.1 11/30/2022 ANIONGAP 12 11/30/2022 MG/PHOS: No results found for: MG, PHOS CKMB: No components found for: CKMB;2 PT/INR: Lab Results Component Value Date INR 2.5 (H) 12/02/2022 BNP: No results found for: BNP Last 3 Troponin: No components found for: TROPONINI;3 U/A: No results found for: COLORU, CLARITYU, GLUCOSEU, BILIRUBINUR, KETONESU, SPECGRAV, BLOODU, PHUR, UROBILINOGEN, NITRITE, LEUKOCYTESUR, MUCUS, RBCUA, WBCUA CMP: Lab Results Component Value Date NA 142 11/30/2022 K 3.8 11/30/2022 CL 105 11/30/2022 CO2 25 11/30/2022 BUN 16 11/30/2022 CREATININE 0.72 11/30/2022 GLUCOSE 84 11/30/2022 CALCIUM 9.1 11/30/2022 ANIONGAP 12 11/30/2022 LFT's: No results found for: ALB, PROT Ionized Calcium: No components found for: IONCA ABG: No results found for: PHART, [id number], PO2ART, BWU9YEL, BEART, [id number] HgBA1c: No results found for: HGBA1C Lipid Panel: No results found for: CHOL, TRIG, HDL TSH: No results found for: TSH Lab Results Component Value Date GLUCOSE 84 11/30/2022 BUN 16 11/30/2022 CREATININE 0.72 11/30/2022 NA 142 11/30/2022 K 3.8 11/30/2022 CL 105 11/30/2022 CO2 25 11/30/2022 CALCIUM 9.1 11/30/2022 @RESU CBC: Recent Labs Lab Units 11/30/22228 WBC X(10)9/L BLOOD x10E9/L 6.7 HGB GM/DL BLOOD gm/dL 10.0* PLT CT X(10)9/L BLOOD x10E9/L 254 MCV FL BLOOD fl 95.0 BMP: Recent Labs Lab Units 11/30/22228 SODIUM MMOL/L BLOOD mmol/L 142 POTASSIUM MMOL/L BLOOD mmol/L 3.8 CHLORIDE mmol/L 105 CO2 mmol/L 25 BUN MG/DL BLOOD mg/dL 16 CREATININE mg/dL 0.72 GLUCOSE MG/DL BLOOD mg/dL 84 CALCIUM MG/DL BLOOD mg/dL 9.1 I reviewed the EKG tracing/Xray Recent Labs Lab Units 11/30/22228 SODIUM MMOL/L BLOOD mmol/L 142 POTASSIUM MMOL/L BLOOD mmol/L 3.8 CHLORIDE mmol/L 105 CO2 mmol/L 25 BUN MG/DL BLOOD mg/dL 16 CREATININE mg/dL 0.72 GLUCOSE MG/DL BLOOD mg/dL 84 CALCIUM MG/DL BLOOD mg/dL 9.1 ANION GAP BLOOD mmol/L 12 ASSESSMENT AND PLAN Principal Problem: Cerebrovascular accident Acute R MCA CVA Left hemiplegia /p TNK and MT and TICI2b revascularization on 10/19. Developed MCA syndrome s/p hemicrani. 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 - MRI brain w/wo done (11/10): cortical enhancement along the right frontal parietal and temporal regions 2/2 infarct progression but can't rule out cerebritis or infections.LP not concerning, however. -- glenis PEG fluid collection: Improved on abx - Urology replaced puentes (11/09-) TTE showed mobile aortic valve vegetation. IV abxs HTN Continue meds Migraine without aura Pian control GERD PPI Oral contraceptive use DVT Prophylaxis Obesity BMI 36 Nutrition consult Abn LFT Check hep screen Watch with statin D Pain management Today's pain score FEN. Nutrition consult for evaluation of nutritional status and the best diet. And for BMI evaluation and education regarding maintaining a healthy BMI Bladder management Voiding ok Bowel management . Titrate bowel medications for constipation/diarrhea. Skin. Nursing to address skin care throughout stay. Turn every 2 hrs Sleep. Monitor sleep-wake cycle. High Fall risk- Fall precautions GI Prophylaxis: DVT Prophylaxis: Full Resuscitation D/W patient , and attending physician about test results and treatment plan .No family in the room.Patient requiring monitoring of BP and HR while doing 3 hour intensive exercises to avoid fluctuations and hypotension . Aswell as monitoring of nutritional and fluid status , by weights, leg edema .Notified staff and patient to notify me of any change inconditions or new problems Electronically signed by: LOY DAWSON MD, at [facility] basically DUI may be GI need a I diving lysis consult subacute S do * Adriano Noel, PharmD - 12/02/2022 7:30 AM CDT [facility] Pharmacy Note Pharmacy Consultation - Warfarin Dosing and Monitoring Consuelo Darby is a 42 y.o. female who has been consulted for pharmacy warfarin dosing and monitoring. Labs: INR Date Value Ref Range Status 12/02/2022 2.5 (H) 0.9 - 1.1 Final 12/01/2022 2.5 (H) 0.9 - 1.1 Final 11/30/2022 2.7 (H) 0.9 - 1.1 Final 11/29/2022 2.5 (H) 0.9 - 1.1 Final 11/28/2022 1.9 (H) 0.9 - 1.1 Final HGB gm/dL Blood Date Value Ref Range Status 11/30/2022 10.0 (L) 12.0 - 15.6 gm/dL Final 11/27/2022 9.9 (L) 12.0 - 15.6 gm/dL Final 11/23/2022 10.4 (L) 12.0 - 15.6 gm/dL Final HCT % Blood Date Value Ref Range Status 11/30/2022 32.1 (L) 35.9 - 45.5 % Final 11/27/2022 31.8 (L) 35.9 - 45.5 % Final 11/23/2022 35.0 (L) 35.9 - 45.5 % Final Plt Ct X(10)9/L Blood Date Value Ref Range Status 11/30/2022 254 153 - 416 x10E9/L Final 11/27/2022 291 153 - 416 x10E9/L Final 11/23/2022 439 (H) 153 - 416 x10E9/L Final Warfarin Dose History: Date INR Dose (mg) Comments 12/02/22 2.5 4 none Assessment: Warfarin Indication: Embolic Stroke INR Goal: 2-3 Today's INR is 2.5 and is Therapeutic. Bridging Therapy: No Risk Factors for Bleeding: none Pertinent Medication Related to Warfarin: none Plan: 1. Administer warfarin 4mg by mouth one time this evening 2. Check INR tomorrow. Pharmacy will follow up with INR recheck and order subsequent warfarin dosespending INR results. 3. Pharmacy will provide warfarin education to the patient on discharge 4.The patient will continue to be monitored by the pharmacy department for the duration of the length of stay for assurance of medication safety and efficacy. ADRIANO NOEL, PharmD 7:28 AM CDT 12/02/22 * Nghia Pryor MD - 12/01/2022 5:57 PM CDT HOSPITALIST PROGRESS NOTE Patient Name: Consuelo Darby : 1980 Medical Record: [id number] ATTENDING Yamileth Frias MD SUBJECTIVE 11/19 The patient is being seen for follow-up of Cerebrovascular accident. BP, BS , HR, labs, strength. .Chief Complaint CT head ok Headache much better Got upto chair without helmet =did ok Working on better helmet Consider spinal headache if recurs- d/w dr Villagran strength improving, able to do therapy ok. No chest pain, no SOB, no dizziness, no palpitations, no new neurologic symptoms. No cough, No nausea or vomiting, No abdominal pain. History also obtained from Nurse and staff about how the patient did overnight and during the day strength improving, able to do therapy ok. 11/20 Patient seen an examined Doing alright No new issues to report Vitals reviewed 11/21 Patient seen and examined earlier No new issues to report Vitals reviewed Resting comfortably 11/22 Patient seen and examined Doing alright at this time Resting comfortably Vitals reviewed 11/23 The patient was seen in the room this afternoon. The patient currently does not report any chest pain, shortness present nausea or vomiting No reported issues from the floor nurse. The most recent labs and vital signs were reviewed. 11/24: Patient seen and examined this morning. Patient complaining of bilateral hip pain. Have placed order for Flexeril and lidocaine patch. No acute events reported overnight. Blood work and vital signs remained stable. Continue current medical management. 11/25: Patient seen and examined this morning. Patient continues to complain of bilateral hip pain. Continue lidocaine patches. Have scheduled Flexeril 5 mg t.i.d.. Continue current medical management. 11/26: Patient seen and examined this morning. Patient continues to complain of hip pain. Follow up left hip x-ray. Follow up with PM&R for further recommendations. Continue Lovenox. Have discussed Coumadin dosing with pharmacy. Goal to have INR from 2-3. No acute events reported overnight. Continue current medical management. 11/27:Patient seen and examined this morning. Vitals and labs reviewed. Resting comfortably. No acute events overnight. Continue current medical management. 11/30 Patient seen and examined Doing ok. No new issues to report 12/01 Patient seen and examined earlier this afternoon. Things are going well. No new issues to report. BRIEF HISTORY The patient is a 42 y.o. y/o female with history of HTN, GERD, presented tO ED with new left sided weakness and slurred speech Diagnosed with acute CVA s/p TNK and m1 occlusion S/P MT . c/b R iliac and common femoral artery occlusion s/p thrombectomy. Developed Fever: consulted ID, broaden abx, Cxs. - MRI brain w/wo done (11/10): cortical enhancement along the right frontal parietal and temporal regions 2/2 infarct progression but can't rule out cerebritis or infections.however LP neg. Also had glenis PEG fluid collection: Improved on abx - Urology replaced puentes (11/09-) Extubated, now on RA HOME Medications Prior to Admission medications Medication Sig Start Date End Date Taking? Authorizing Provider cetirizine (ZyrTEC) 10 MG tablet Take 1 tablet (10 mg total) by mouth in the morning. Yes Historical Provider, omeprazole (PriLOSEC) 20 MG capsule Take 1 capsule (20 mg total) by mouth in the morning. Yes Historical Provider, amitriptyline (ELAVIL) 50 MG tablet 2 tablets (100 mg total) nightly. Historical Provider, CURRENT Medications Current Facility-Administered Medications: acetaminophen (TYLENOL) tablet 500 mg, 500 mg, Per Tube, Q6H PRN, Nghia Pryor MD, 500 mg at 12/01/22 0522 baclofen (LIORESAL) tablet 5 mg, 5 mg, Oral, Nightly, Yamileth Frias MD, 5 mg at 11/30/22 2131 bethanechol (URECHOLINE) tablet 25 mg, 25 mg, Oral, 3 times per day, Yamileth Frias MD, 25 mg at 12/01/22 1621 bisacodyl (DULCOLAX) suppository 10 mg, 10 mg, Rectal, Daily PRN, Nghia Pryor MD cholecalciferol (VITAMIN D3) tablet 2,000 Units, 2,000 Units, Per Tube, Once a day, Nghia Pryor MD, 2,000 Units at 12/01/22 0840 cyclobenzaprine (FLEXERIL) tablet 5 mg, 5 mg, Oral, 3 times per day, Loy Dawson MD, 5 mg at 12/01/22 1621 guaiFENesin (ROBITUSSIN) 100 MG/5ML liquid 10 mL, 10 mL, Enteral, BID PRN, Nghia Pryor MD hydrocortisone (ANUSOL-HC) 2.5 % rectal cream, , Rectal, 2 times per day, Loy Dawson MD, Given at 12/01/22 0907 hydrOXYzine (ATARAX) tablet 25 mg, 25 mg, Oral, Q6H PRN, Yamileth Frias MD, 25 mg at 11/30/22 2132 lidocaine (LIDOCARE) 4 % patch 1 patch, 1 patch, Transdermal, Once a day, Loy Dawson MD, 1 patch at 12/01/22 0840 loratadine (CLARITIN) tablet 10 mg, 10 mg, Enteral, Once a day, Nghia Pryor MD, 10 mg at 12/01/22 0839 metoprolol tartrate (LOPRESSOR) tablet 25 mg, 25 mg, Enteral, 2 times per day, Nghia Pryor MD, 25 mg at 12/01/22 0839 ondansetron ODT (ZOFRAN-ODT) disintegrating tablet 4 mg, 4 mg, Per Tube, Q6H PRN, Marlee Bradley MD, 4 mg at 12/01/22 0900 oxyCODONE (ROXICODONE) immediate release tablet 5 mg, 5 mg, Enteral, Q4H PRN, Marlee Bradley MD, 5mg at 12/01/22 0906 [START ON 12/02/2022] oxyCODONE (ROXICODONE) immediate release tablet 5 mg, 5 mg, Oral, Daily at 0600, Yamileth Frias MD pantoprazole-sodium bicarbonate 2mg/ml oral liquid 40 mg, 40 mg, Per Tube, Daily bef breakfast, Marlee Bradley MD, 40 mg at 12/01/22 0536 senna-docusate (SENOKOT-S) 8.6-50 MG tablet 2 tablet, 2 tablet, Enteral, Daily PRN, Nghia Pryor MD simethicone (MYLICON) chewable tablet 80 mg, 80 mg, Per Tube, BID PRN, Marlee Bradley MD, 80 mg at11/28/222051 tamsulosin (FLOMAX) 24 hr capsule 0.4 mg, 0.4 mg, Enteral, After Breakfast, Nghia Pryor MD, 0.4 mg at 12/01/22 0840 triamcinolone (KENALOG) 0.1 % ointment, , Apply externally, BID PRN, Nghia Pryor MD, Given at 11/20/222014 verapamil (CALAN) tablet 40 mg, 40 mg, Enteral, Q8H SENDY, Nghia Pryor MD, 40 mg at 12/01/22 1620 Warfarin Per Policy, , Does not apply, Daily, Nghia Pryor MD warfarin tablet 4 mg, 4 mg, Oral, Once, Nghia Pryor MD DATA Vitals: 11/30/22 1915 12/01/22 0400 12/01/22 0814 12/01/22 1620 BP: 110/70 111/73 112/65 Pulse: 75 76 Resp: 15 18 Temp: 98.8 ??F (37.1 ??C) 97.6 ??F (36.4 ??C) TempSrc: Oral Oral SpO2: 94% 94% Weight: 189 lb (85.7 kg) Height: Weights (last 3 days) Date/Time Weight 12/01/22 0400 189 lb (85.7 kg) @ANTICOAGSUMMARY@ @FLOWDATE(2706:LAST)@ Intake/Output Summary (Last 24 hours) at 12/01/2022 1757 Last data filed at 12/01/2022 0814 Gross per 24 hour Intake 480 ml Output 450 ml Net 30 ml PHYSICAL EXAM General appearance: awake, alert, cooperative, no distress HEENT: Normocephalic, No icterus, No oral lesions, Oral and nasal mucosa moist Neck: Supple, no lymphadenopathy Eyes: EOMI, Conjunctiva normal, No discharge Cardiovascular: Normal heart rate, Normal rhythm, No murmurs, No rubs, No gallops Respiratory: Normal breath sounds, No respiratory distress, No wheezing, No rhonchi, No rales, No chest tenderness. GI: Bowel sounds normal, Soft, No tenderness, No rebound or guarding, No masses. Abdomen: soft without mass, non-tender, with normal bowel sounds Extremities: no clubbing, cyanosis or edema, no calf tenderness Musculoskeletal:no swelling of joints.no redness Psychologic: Mood ok, no suicidal ideation. Skin: No rash. 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 LABS CBC with Differential: Lab Results Component Value Date WBC 6.7 11/30/2022 HGB 10.0 (L) 11/30/2022 HCT 32.1 (L) 11/30/2022 PLT 254 11/30/2022 MCV 95.0 11/30/2022 MCH 29.6 11/30/2022 MCHC 31.2 11/30/2022 RDW 14.9 11/30/2022 [ BMP: Lab Results Component Value Date NA 142 11/30/2022 K 3.8 11/30/2022 CL 105 11/30/2022 CO2 25 11/30/2022 BUN 16 11/30/2022 CREATININE 0.72 11/30/2022 GLUCOSE 84 11/30/2022 CALCIUM 9.1 11/30/2022 ANIONGAP 12 11/30/2022 MG/PHOS: No results found for: MG, PHOS CKMB: No components found for: CKMB;2 PT/INR: Lab Results Component Value Date INR 2.5 (H) 12/01/2022 BNP: No results found for: BNP Last 3 Troponin: No components found for: TROPONINI;3 U/A: No results found for: COLORU, CLARITYU, GLUCOSEU, BILIRUBINUR, KETONESU, SPECGRAV, BLOODU, PHUR, UROBILINOGEN, NITRITE, LEUKOCYTESUR, MUCUS, RBCUA, WBCUA CMP: Lab Results Component Value Date NA 142 11/30/2022 K 3.8 11/30/2022 CL 105 11/30/2022 CO2 25 11/30/2022 BUN 16 11/30/2022 CREATININE 0.72 11/30/2022 GLUCOSE 84 11/30/2022 CALCIUM 9.1 11/30/2022 ANIONGAP 12 11/30/2022 LFT's: No results found for: ALB, PROT Ionized Calcium: No components found for: IONCA ABG: No results found for: PHART, XTB2DAZ, PO2ART, IOP1DLH, BEART, [id number] HgBA1c: No results found for: HGBA1C Lipid Panel: No results found for: CHOL, TRIG, HDL TSH: No results found for: TSH Lab Results Component Value Date GLUCOSE 84 11/30/2022 BUN 16 11/30/2022 CREATININE 0.72 11/30/2022 NA 142 11/30/2022 K 3.8 11/30/2022 CL 105 11/30/2022 CO2 25 11/30/2022 CALCIUM 9.1 11/30/2022 @RESU CBC: Recent Labs Lab Units 11/30/22228 WBC X(10)9/L BLOOD x10E9/L 6.7 HGB GM/DL BLOOD gm/dL 10.0* PLT CT X(10)9/L BLOOD x10E9/L 254 MCV FL BLOOD fl 95.0 BMP: Recent Labs Lab Units 11/30/22228 SODIUM MMOL/L BLOOD mmol/L 142 POTASSIUM MMOL/L BLOOD mmol/L 3.8 CHLORIDE mmol/L 105 CO2 mmol/L 25 BUN MG/DL BLOOD mg/dL 16 CREATININE mg/dL 0.72 GLUCOSE MG/DL BLOOD mg/dL 84 CALCIUM MG/DL BLOOD mg/dL 9.1 I reviewed the EKG tracing/Xray Recent Labs Lab Units 11/30/22228 SODIUM MMOL/L BLOOD mmol/L 142 POTASSIUM MMOL/L BLOOD mmol/L 3.8 CHLORIDE mmol/L 105 CO2 mmol/L 25 BUN MG/DL BLOOD mg/dL 16 CREATININE mg/dL 0.72 GLUCOSE MG/DL BLOOD mg/dL 84 CALCIUM MG/DL BLOOD mg/dL 9.1 ANION GAP BLOOD mmol/L 12 ASSESSMENT AND PLAN Principal Problem: Cerebrovascular accident Acute R MCA CVA Left hemiplegia /p TNK and MT and TICI2b revascularization on 10/19. Developed MCA syndrome s/p hemicrani. 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 - MRI brain w/wo done (11/10): cortical enhancement along the right frontal parietal and temporal regions 2/2 infarct progression but can't rule out cerebritis or infections.LP not concerning, however. -- glenis PEG fluid collection: Improved on abx - Urology replaced puentes (11/09-) TTE showed mobile aortic valve vegetation. IV abxs HTN Continue meds Migraine without aura Pian control GERD PPI Oral contraceptive use DVT Prophylaxis Obesity BMI 36 Nutrition consult Abn LFT Check hep screen Watch with statin D Pain management Today's pain score FEN. Nutrition consult for evaluation of nutritional status and the best diet. And for BMI evaluation and education regarding maintaining a healthy BMI Bladder management Voiding ok Bowel management . Titrate bowel medications for constipation/diarrhea. Skin. Nursing to address skin care throughout stay. Turn every 2 hrs Sleep. Monitor sleep-wake cycle. High Fall risk- Fall precautions GI Prophylaxis: DVT Prophylaxis: Full Resuscitation D/W patient , and attending physician about test results and treatment plan .No family in the room.Patient requiring monitoring of BP and HR while doing 3 hour intensive exercises to avoid fluctuations and hypotension . Aswell as monitoring of nutritional and fluid status , by weights, leg edema .Notified staff and patient to notify me of any change inconditions or new problems Electronically signed by: NGHIA PRYOR MD, at [facility] basically DUI may be GI need a I diving lysis consult subacute S do * Sanrda Land, PharmD - 12/01/2022 3:25 PM CDT [facility] Pharmacy Note Pharmacy Consultation - Warfarin Dosing and Monitoring Consuelo Darby is a 42 y.o. female who has been consulted for pharmacy warfarin dosing and monitoring for indication of embolic stroke. Labs: INR Date Value Ref Range Status 12/01/2022 2.5 (H) 0.9 - 1.1 Final 11/30/2022 2.7 (H) 0.9 - 1.1 Final 11/29/2022 2.5 (H) 0.9 - 1.1 Final 11/28/2022 1.9 (H) 0.9 - 1.1 Final 11/28/2022 3.8 (H) 0.9 - 1.1 Final HGB gm/dL Blood Date Value Ref Range Status 11/30/2022 10.0 (L) 12.0 - 15.6 gm/dL Final 11/27/2022 9.9 (L) 12.0 - 15.6 gm/dL Final 11/23/2022 10.4 (L) 12.0 - 15.6 gm/dL Final HCT % Blood Date Value Ref Range Status 11/30/2022 32.1 (L) 35.9 - 45.5 % Final 11/27/2022 31.8 (L) 35.9 - 45.5 % Final 11/23/2022 35.0 (L) 35.9 - 45.5 % Final Plt Ct X(10)9/L Blood Date Value Ref Range Status 11/30/2022 254 153 - 416 x10E9/L Final 11/27/2022 291 153 - 416 x10E9/L Final 11/23/2022 439 (H) 153 - 416 x10E9/L Final Current Facility-Administered Medications: acetaminophen (TYLENOL) tablet 500 mg, 500 mg, Per Tube, Q6H PRN, Nghia Pryor MD, 500 mg at 12/01/22 0522 baclofen (LIORESAL) tablet 5 mg, 5 mg, Oral, Nightly, Yamileth Frias MD, 5 mg at 11/30/22 2131 bethanechol (URECHOLINE) tablet 25 mg, 25 mg, Oral, 3 times per day, Yamileth Frias MD, 25 mg at 12/01/22 0839 bisacodyl (DULCOLAX) suppository 10 mg, 10 mg, Rectal, Daily PRN, Nghia Pryor MD cholecalciferol (VITAMIN D3) tablet 2,000 Units, 2,000 Units, Per Tube, Once a day, Nghia Pryor MD, 2,000 Units at 12/01/22 0840 cyclobenzaprine (FLEXERIL) tablet 5 mg, 5 mg, Oral, 3 times per day, Loy Dawson MD, 5 mg at 12/01/22 0839 guaiFENesin (ROBITUSSIN) 100 MG/5ML liquid 10 mL, 10 mL, Enteral, BID PRN, Nghia Pryor MD hydrocortisone (ANUSOL-HC) 2.5 % rectal cream, , Rectal, 2 times per day, Loy Dawson MD, Given at 12/01/22 09 hydrOXYzine (ATARAX) tablet 25 mg, 25 mg, Oral, Q6H PRN, Yamileth Frias MD, 25 mg at 11/30/22 213 lidocaine (LIDOCARE) 4 % patch 1 patch, 1 patch, Transdermal, Once a day, Loy Dawson MD, 1 patch at 12/01/22 0840 loratadine (CLARITIN) tablet 10 mg, 10 mg, Enteral, Once a day, Nghia Pryor MD, 10 mg at 12/01/22 0839 metoprolol tartrate (LOPRESSOR) tablet 25 mg, 25 mg, Enteral, 2 times per day, Nghia Pryor MD, 25 mg at 12/01/22 0839 ondansetron ODT (ZOFRAN-ODT) disintegrating tablet 4 mg, 4 mg, Per Tube, Q6H PRN, Marlee Bradley MD, 4 mg at 12/01/22 09 oxyCODONE (ROXICODONE) immediate release tablet 5 mg, 5 mg, Enteral, Q4H PRN, Marlee Bradley MD, 5mg at 12/01/22 0906 [START ON 12/02/2022] oxyCODONE (ROXICODONE) immediate release tablet 5 mg, 5 mg, Oral, Daily at 0600, Yamileth Frias MD pantoprazole-sodium bicarbonate 2mg/ml oral liquid 40 mg, 40 mg, Per Tube, Daily bef breakfast, Marlee Bradley MD, 40 mg at 12/01/22 0536 senna-docusate (SENOKOT-S) 8.6-50 MG tablet 2 tablet, 2 tablet, Enteral, Daily PRN, Nghia Pryor MD simethicone (MYLICON) chewable tablet 80 mg, 80 mg, Per Tube, BID PRN, Marlee Bradley MD, 80 mg at11/28/222051 tamsulosin (FLOMAX) 24 hr capsule 0.4 mg, 0.4 mg, Enteral, After Breakfast, Nghia Pryor MD, 0.4 mg at 12/01/22 0840 triamcinolone (KENALOG) 0.1 % ointment, , Apply externally, BID PRN, Nghia Pryor MD, Given at 11/20/222014 verapamil (CALAN) tablet 40 mg, 40 mg, Enteral, Q8H SENDY, Nghia Pryor MD, 40 mg at 12/01/22 0522 Warfarin Per Policy, , Does not apply, Daily, Nghia Pryor MD warfarin tablet 4 mg, 4 mg, Oral, Once, Nghia Pryor MD Assessment: Warfarin Indication: ischemic stroke due to septic emboli; MT c/b R iliac and common femoral arteryocclusion s/p thrombectomy. INR Goal: 2-3 Today's INR is 2.5 today and is therapeutic. Bridging Therapy: Yes, describe: complete Risk Factors for Bleeding: na Pertinent Medication Related to Warfarin: spotter Plan: 1. Administer warfarin 4mg by mouth today. 2. Check INR on Sunday. Pharmacy will follow up with INR recheck and order subsequent warfarin doses pending INR results. 3.The patient will continue to be monitored by the pharmacy department for the duration of the length of stay for assurance of medication safety and efficacy. SANDRA LAND, PharmD 3:25 PM CDT 12/01/22 * Yamileth Frias MD - 12/01/2022 1:23 PM CDT PM&R PROGRESS NOTE This is Face to Face Visit note Consuelo Darby is a 42 y.o. female patient. In bed this morning , no distress Improvements seen . REVIEW OF FUNCTIONAL STATUS SM Functional Status PT Data (since 11/28/2022) Value Time User Bed Mobility Comment Sit to/from supine on mat with max assist of one for left side assist, lift assist (P) 12/01/2022 1:03 PM Kellie Moran, PT Gait Analysis Sling to support left UE. Francisco wrap to assist left ankle DF. Knee immobilizer for left knee extension. Pt ambulated 5ft x1, 10ft x2 with hemiaide on right. Max on left for trunk support/balance, wt shift. Max to advance and block left leg. Mod initially on right of another then min for balance and cane management. Pt with gradual increase in cane advancement. Cues for upright head control and min to position in neutral. Visual target to maintain neutral head and vision during gait training. W/c follow for safety. 11/29/2022 6:15 PM Kellie Moran, MARIOLA WC Analysis Pt in tilt in space w/c for head and trunk support. 11/29/2022 6:15 PM Kellie Moran PT SM Functional Status OT Data (since 11/28/2022) None EATING: supervision, pureed diet with thickened liquids; tray positioned to the right; cues for wiping left side of mouth ORAL HYGIENE: supervision without use of suction toothbrush. She is now able to spit and rinse mouth effectively without suction. TOILETING: BATHING: UB DRESSING: LB DRESSING: discussed sonya techniques, such as crossing left leg over right to don L pants over left foot first (assist needed for crossing L leg over right). PUTTING ON/TAKING OFF FOOTWEAR: mod assist; pt needed assist for tying shoes and for crossing left leg over right; she also needed assist for donning L shoe. She was able to cross right leg over leftwithout assistance for don/doffing footwear. SIT TO STAND: max assist for sit to stand from the mat BED TO CHAIR TRANSFER: two person assist for sliding board transfers w/c to and from mat; she was able to assist with the transfer, especially when going to the right side. TOILET TRANSFER: Patient Active Problem List Diagnosis Cerebrovascular accident Hypertension Past Medical History: Diagnosis Date Gastroesophageal reflux disease Hypertension Migraine Current Facility-Administered Medications: acetaminophen (TYLENOL) tablet 500 mg, 500 mg, Per Tube, Q6H PRN, Nghia Pryor MD, 500 mg at 12/01/22 0522 baclofen (LIORESAL) tablet 5 mg, 5 mg, Oral, Nightly, Yamileth Frias MD, 5 mg at 11/30/22 213 bethanechol (URECHOLINE) tablet 25 mg, 25 mg, Oral, 3 times per day, Yamileth Frias MD, 25 mg at 12/01/22 0839 bisacodyl (DULCOLAX) suppository 10 mg, 10 mg, Rectal, Daily PRN, Nghia Pryor MD cholecalciferol (VITAMIN D3) tablet 2,000 Units, 2,000 Units, Per Tube, Once a day, Nghia Pryor MD, 2,000 Units at 12/01/22 0840 cyclobenzaprine (FLEXERIL) tablet 5 mg, 5 mg, Oral, 3 times per day, Loy Dawson MD, 5 mg at 12/01/22 0839 guaiFENesin (ROBITUSSIN) 100 MG/5ML liquid 10 mL, 10 mL, Enteral, BID PRN, Nghia Pryor MD hydrocortisone (ANUSOL-HC) 2.5 % rectal cream, , Rectal, 2 times per day, Loy Dawson MD, Given at 12/01/22 09 hydrOXYzine (ATARAX) tablet 25 mg, 25 mg, Oral, Q6H PRN, Yamileth Frias MD, 25 mg at 11/30/22 213 lidocaine (LIDOCARE) 4 % patch 1 patch, 1 patch, Transdermal, Once a day, Loy Dawson MD, 1 patch at 12/01/22 08 loratadine (CLARITIN) tablet 10 mg, 10 mg, Enteral, Once a day, Nghia Pryor MD, 10 mg at 12/01/22 0839 metoprolol tartrate (LOPRESSOR) tablet 25 mg, 25 mg, Enteral, 2 times per day, Nghia Pryor MD, 25 mg at 12/01/22 0839 ondansetron ODT (ZOFRAN-ODT) disintegrating tablet 4 mg, 4 mg, Per Tube, Q6H PRN, Marlee Bradley MD, 4 mg at 12/01/22 0900 oxyCODONE (ROXICODONE) immediate release tablet 5 mg, 5 mg, Enteral, Q4H PRN, Marlee Bradley MD, 5mg at 12/01/22 0906 pantoprazole-sodium bicarbonate 2mg/ml oral liquid 40 mg, 40 mg, Per Tube, Daily bef breakfast, Marlee Bradley MD, 40 mg at 12/01/22 0536 senna-docusate (SENOKOT-S) 8.6-50 MG tablet 2 tablet, 2 tablet, Enteral, Daily PRN, Nghia Pryor MD simethicone (MYLICON) chewable tablet 80 mg, 80 mg, Per Tube, BID PRN, Marlee Bradley MD, 80 mg at11/28/222051 tamsulosin (FLOMAX) 24 hr capsule 0.4 mg, 0.4 mg, Enteral, After Breakfast, Nghia Pryor MD, 0.4 mg at 12/01/22 0840 triamcinolone (KENALOG) 0.1 % ointment, , Apply externally, BID PRN, Nghia Pyror MD, Given at 11/20/222014 verapamil (CALAN) tablet 40 mg, 40 mg, Enteral, Q8H SENDY, Nghia Pryor MD, 40 mg at 12/01/22 0522 Warfarin Per Policy, , Does not apply, Daily, Nghia Pryor MD warfarin tablet 4 mg, 4 mg, Oral, Once, Nghia Pryor MD Review of Systems: Review of Systems Constitutional: Negative for appetite change. HENT: Negative for congestion. Respiratory: Negative for shortness of breath. Cardiovascular: Positive for leg swelling. Genitourinary: Negative for flank pain. Musculoskeletal: Negative for arthralgias and joint swelling. Neurological: Negative for headaches. Psychiatric/Behavioral: The patient is nervous/anxious. Physical Exam Vitals: 12/01/22 0814 BP: 111/73 Pulse: 76 Resp: 18 Temp: 97.6 ??F (36.4 ??C) SpO2: 94% Physical Exam Constitutional: General: She is not in acute distress. HENT: Head: Atraumatic. Eyes: Conjunctiva/sclera: Conjunctivae normal. Cardiovascular: Rate and Rhythm: Normal rate. Pulmonary: Effort: Pulmonary effort is normal. Abdominal: General: There is no distension. Skin: Findings: No erythema. Neurological: Coordination: Coordination abnormal. Neurologic Exam Lab Data Reviewed current lab results available to me today. Lab Results Component Value Date WBC 6.7 11/30/2022 HGB 10.0 (L) 11/30/2022 HCT 32.1 (L) 11/30/2022 MCV 95.0 11/30/2022 PLT 254 11/30/2022 Lab Results Component Value Date GLUCOSE 84 11/30/2022 CALCIUM 9.1 11/30/2022 NA 142 11/30/2022 K 3.8 11/30/2022 CO2 25 11/30/2022 CL 105 11/30/2022 BUN 16 11/30/2022 CREATININE 0.72 11/30/2022 ANIONGAP 12 11/30/2022 Imaging Reviewed current imaging results available to me today. XR abdomen 1 vws Result Date: 11/19/2022 NARRATIVE: Procedure: XR ABDOMEN KUB Exam Date: 11/19/2022 9:38 AM Location: [facility] Indication: abdominal fullness, reflux. Patient on peg tube feeding FINDINGS/IMPRESSION: Air is seen throughout the colonic structures. No dilated bowel loops are identified. There is no evidence tosuggest obstruction. There is no gross free intraperitoneal air. There does appear to be a gastrostomy tube superimposing the stomach. > Interpreting Provider: Rebel Hernandez MD on 11/19/2022 9:[address] head WO contrast Result Date: 11/19/2022 NARRATIVE: Procedure: CT HEAD WO CONTRAST Exam Date: 11/19/2022 9:31 AM Location: [facility] CT head without IV contrast INDICATION: worsening pain TECHNIQUE: CT examination of the headwas performed from the base of the skull through the vertex using multiple axial images without IV contrast. FINDINGS: No old studies are available for comparison purposes. VIZ AI was utilized. Patient is status post right-sided craniectomy. There is extensive encephalomalacia involving the right frontal lobe with with some minimal involvement of the temporal and parietal lobe. There is no acute infarct. There is no mass. There is no hemorrhage. There are no extra-axial fluid collections. Thereis no midline shift. IMPRESSION: IMPRESSION: Right frontal craniectomy with extensive encephalomalacia involving the right frontal lobe as well as some involvement of the parietal and temporal lobes. > Interpreting Provider: Rebel Hernandez MD on 11/19/2022 9:36 AM Assessment & Plan: Consuelo Darby is a 42 y.o. female patient with Cerebrovascular accident functional impairment for rehab Cerebrovascular accident PT, OT for gait training and ADL training, Nursing for bowel and bladder care. Speech therapy for swallow evaluation and cognitive evaluation. Acute R MCA CVA Left dense hemiplegia LUE / LLE : 0/5 Left face droop Left neglect Spasticity: SENDY Baclofen 5 mg HS And flexeril TID SENDY Oxy before therapy from 12/02 s/p TNK and MT and TICI2b revascularization on 10/19. 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 S /P IV abxs HTN Continue metoprolol , verapamil # headaches: On Tylenol and Oxy PRN Pian control # Neurogenic bladder: puentes removed on 11/27 Urology consult Flomax HS Urecholine 25 mg TID from 11/27 Skin/Wounds: - Skin integrity and Pressure ulcer prevention: frequent repositioning and adequate pressure relief. Maintain clean, dry skin. If needed, q2 hour turns when in bed and regular skin checks, application of protective barrier cream, toileting schedule. Wound RN consult Bowel & Bladder - monitor bowel movement - adjust scheduled and PRN bowel regimen as needed - monitor for adequate urinary output - should suspicion for urinary retention arise, PVR of random bladder scan will be performed for further assessment Continue current medical management. RECOMMENDATIONS At the current time, this inpatient hospital rehabilitation stay is medically necessary to achieve important health and functional goals. The patient requires frequent physician visits, 24-hour rehabilitation nursing, and a coordinated intensive rehabilitation program as described above to address complex medical, nursing, and rehabilitation needs. Continue inpatient comprehensive interdisciplinary rehabilitation to address strengthening, mobility skills, self care, cognitive functioning, speech, communication and swallowing needs. The patient continues to require the interdisciplinary team approach and 24 hour monitoring. DIET: Dietary Orders (From admission, onward) Start Ordered 11/29/22 1700 Nutritional supplement Magic Cup; Oral 3 times daily with meals Comments: Send chocolate Thrive TID End/Expires: Until Specified Question Answer Comment Select Supplement: Magic Cup Administration Route: Oral Place order in third green party system. Done 11/29/22 1250 11/29/22 1250 Jevity 1.5; Tube Feeding Bolus (mL): 240; Tube Feeding Bolus frequency: if po intake < 50% meals; Tube Feeding water flush (mL): 50; Water flush frequency: Every 4 hours Diet effective now End/Expires: Until Specified Question Answer Comment Tube Feeding Formula: Jevity 1.5 Tube Feeding Bolus (mL): 240 Tube Feeding Bolus frequency: if po intake < 50% meals Tube Feeding water flush (mL): 50 Water flush frequency: Every [address] order in third green party system. Done 11/29/22 1250 11/27/22 1516 Adult Diet Regular; 4 Pureed (NDD I); 2 Mildly Thick ([employer]) Diet effective now End/Expires: Until Specified References: [employer] Website Question Answer Comment Diet Type: Regular Diet Texture: 4 Pureed (NDD I) Liquid Consistency: 2 Mildly Thick ([employer]) Place order in third green party system. Done 11/27/22 1515 Patient Active Problem List Diagnosis Cerebrovascular accident Hypertension CHIN: YAMILETH FRIAS MD * Sandra Land, PharmD - 11/30/2022 4:48 PM CDT [facility] Pharmacy Note Pharmacy Consultation - Warfarin Dosing and Monitoring Consuelo Darby is a 42 y.o. female who has been consulted for pharmacy warfarin dosing and monitoring for indication of embolic stroke. Labs: INR Date Value Ref Range Status 11/30/2022 2.7 (H) 0.9 - 1.1 Final 11/29/2022 2.5 (H) 0.9 - 1.1 Final 11/28/2022 1.9 (H) 0.9 - 1.1 Final 11/28/2022 3.8 (H) 0.9 - 1.1 Final 11/27/2022 1.5 (H) 0.9 - 1.1 Final HGB gm/dL Blood Date Value Ref Range Status 11/30/2022 10.0 (L) 12.0 - 15.6 gm/dL Final 11/27/2022 9.9 (L) 12.0 - 15.6 gm/dL Final 11/23/2022 10.4 (L) 12.0 - 15.6 gm/dL Final HCT % Blood Date Value Ref Range Status 11/30/2022 32.1 (L) 35.9 - 45.5 % Final 11/27/2022 31.8 (L) 35.9 - 45.5 % Final 11/23/2022 35.0 (L) 35.9 - 45.5 % Final Plt Ct X(10)9/L Blood Date Value Ref Range Status 11/30/2022 254 153 - 416 x10E9/L Final 11/27/2022 291 153 - 416 x10E9/L Final 11/23/2022 439 (H) 153 - 416 x10E9/L Final Current Facility-Administered Medications: acetaminophen (TYLENOL) tablet 500 mg, 500 mg, Per Tube, Q6H PRN, Nghia Pryor MD, 500 mg at 11/30/22 1215 baclofen (LIORESAL) tablet 5 mg, 5 mg, Oral, Nightly, Yamileth Frias MD, 5 mg at 11/29/222128 bethanechol (URECHOLINE) tablet 25 mg, 25 mg, Oral, 3 times per day, Yamileth Frias MD, 25 mg at 11/30/22 1516 bisacodyl (DULCOLAX) suppository 10 mg, 10 mg, Rectal, Daily PRN, Nghia Pryor MD cholecalciferol (VITAMIN D3) tablet 2,000 Units, 2,000 Units, Per Tube, Once a day, Nghia Pryor MD, 2,000 Units at 11/30/22 0932 cyclobenzaprine (FLEXERIL) tablet 5 mg, 5 mg, Oral, 3 times per day, Loy Dawson MD, 5 mg at 11/30/22 1516 guaiFENesin (ROBITUSSIN) 100 MG/5ML liquid 10 mL, 10 mL, Enteral, BID PRN, Nghia Pryor MD hydrocortisone (ANUSOL-HC) 2.5 % rectal cream, , Rectal, 2 times per day, Loy Dawson MD, Given at 11/30/22 0933 hydrOXYzine (ATARAX) tablet 25 mg, 25 mg, Oral, Q6H PRN, Yamileth Frias MD, 25 mg at 11/29/22 2128 lidocaine (LIDOCARE) 4 % patch 1 patch, 1 patch, Transdermal, Once a day, Loy Dawson MD, 1 patch at 11/30/22927 loratadine (CLARITIN) tablet 10 mg, 10 mg, Enteral, Once a day, Nghia Pryor MD, 10 mg at 11/30/22930 metoprolol tartrate (LOPRESSOR) tablet 25 mg, 25 mg, Enteral, 2 times per day, Nghia Pryor MD, 25 mg at 11/30/2231 ondansetron ODT (ZOFRAN-ODT) disintegrating tablet 4 mg, 4 mg, Per Tube, Q6H PRN, Marlee Bradley MD, 4 mg at 11/29/22936 oxyCODONE (ROXICODONE) immediate release tablet 5 mg, 5 mg, Enteral, Q4H PRN, Marlee Bradley MD, 5mg at 11/29/222127 pantoprazole-sodium bicarbonate 2mg/ml oral liquid 40 mg, 40 mg, Per Tube, Daily bef breakfast, Marlee Bradley MD, 40 mg at 11/30/22 0556 senna-docusate (SENOKOT-S) 8.6-50 MG tablet 2 tablet, 2 tablet, Enteral, Daily PRN, Nghia Pryor MD simethicone (MYLICON) chewable tablet 80 mg, 80 mg, Per Tube, BID PRN, Marlee Bradley MD, 80 mg at11/28/222051 tamsulosin (FLOMAX) 24 hr capsule 0.4 mg, 0.4 mg, Enteral, After Breakfast, Nghia Pryor MD, 0.4 mg at 11/30/22931 triamcinolone (KENALOG) 0.1 % ointment, , Apply externally, BID PRN, Nghia Pryor MD, Given at 11/20/222014 verapamil (CALAN) tablet 40 mg, 40 mg, Enteral, Q8H SENDY, Nghia Pryor MD, 40 mg at 11/30/22 151 Warfarin Per Policy, , Does not apply, Daily, Nghia Pryor MD warfarin tablet 1 mg, 1 mg, Oral, Once, Nghia Pryor MD Assessment: Warfarin Indication: ischemic stroke due to septic emboli; MT c/b R iliac and common femoral arteryocclusion s/p thrombectomy. INR Goal: 2-3 Today's INR is 2.7 today and is therapeutic. Bridging Therapy: Yes, describe: Lovenox 100mg BID until therapeutic - discontinued today. Risk Factors for Bleeding: na Pertinent Medication Related to Warfarin: spotter Plan: 1. Administer warfarin 1mg by mouth today. 2. Check INR on . Pharmacy will follow up with INR recheck and order subsequent warfarin doses pending INR results. 3.The patient will continue to be monitored by the pharmacy department for the duration of the length of stay for assurance of medication safety and efficacy. SANDRA LAND, PharmD 4:47 PM CDT 11/30/22 * Yamileth Frias MD - 11/30/2022 4:39 PM CDT PM&R PROGRESS NOTE This is Face to Face Visit note Consuelo Darby is a 42 y.o. female patient. Progressing well with therapy, no C/O dizziness, weakness improving REVIEW OF FUNCTIONAL STATUS SM Functional Status PT Data (since 11/27/2022) Value Time User Bed Mobility Comment Pt in hospital bed with low air loss mattress- inflated for mobility. Rolls left with cues and min to complete movement. Rolls right with max to manage left side, complete movement. Supine to sit at edge of bed: mat of one and min/mod of another for trunk lift, positioning. Max left leg block with initial sitting to control slide/safety. Mod trunk control. 11/29/2022 10:59 AM Kellie Moran, PT Gait Analysis Sling to support left UE. Francisco wrap to assist left ankle DF. Knee immobilizer for left knee extension. Pt ambulated 5ft x1, 10ft x2 with hemiaide on right. Max on left for trunk support/balance, wt shift. Max to advance and block left leg. Mod initially on right of another then min for balance and cane management. Pt with gradual increase in cane advancement. Cues for upright head control and min to position in neutral. Visual target to maintain neutral head and vision during gait training. W/c follow for safety. 11/29/2022 6:15 PM Kellie Moran PT WC Analysis Pt in tilt in space w/c for head and trunk support. 11/29/2022 6:15 PM Kellie Moran PT SM Functional Status OT Data (since 11/27/2022) None Functional Status [employer] Data (since 11/27/2022) Value Time User Cognitive Communication Immediate memory; Orientation; Basic attention; Task persistence; Short-term memory; Processing information of increased length or complexity; Semi-complex to complex attention; Insight 11/30/2022 3:[address] [facility] Dysphagia Treatment Oral care; Swallow strategy training; Dysphagia diet training; Deep Pharyngeal Neuromusculal Stimulation 11/30/2022 3:[address] [facility] Compensatory Swallow Techniques Small bites; Small sips; Eat slowly-control rate; Oral care post PO intake; Seated upright with all PO intake 11/30/2022 3:[address] ANGIE Harding Narrative 1. Patient was seen for therapy in her room, seated in tilt in space wheelchair; alert and cooperative with all tasks. Discussed schedule for out of bed. Patient verbalized understanding. 2. Patient was observed drinking mildly thick liquids with no clinical signs/symptoms of aspiration. 3. [employer] discussed the Water Protocol with patient. Patient verbalized understanding and agreed to participate. Order was obtained and wall signs placed. RN was notified. 4. Patient received patterned NMES (PENS) with 10 milliamps on the right side and 7 milliamps on the left side to achieve a muscle twitch for 15 minutes. Electrode placement was on the masseter muscle and cervical paraspinals on each side to provide neuro-reeducation to the swallow pattern to normalize swallow function. Skin was clear and intact upon removal of the electrodes. 5. Patient was engaged in a complex topic of discussion regarding stroke: What is a stroke? What are the causes? What are the complications? How does rehab work? What happens after discharge? What are ways to prevent stroke? Patient participated well in the discussion and verbalized understanding of the material discussed. 6. Patient remained in her room with call light and phone left within reach. Chair alarm activated. 11/30/2022 3:02 PM Peyton ChopraKae YogiST Patient Active Problem List Diagnosis Cerebrovascular accident Hypertension Past Medical History: Diagnosis Date Gastroesophageal reflux disease Hypertension Migraine Current Facility-Administered Medications: acetaminophen (TYLENOL) tablet 500 mg, 500 mg, Per Tube, Q6H PRN, Nghia Pryor MD, 500 mg at 11/30/22 1215 baclofen (LIORESAL) tablet 5 mg, 5 mg, Oral, Nightly, Yamileth Frias MD, 5 mg at 11/29/22 212 bethanechol (URECHOLINE) tablet 25 mg, 25 mg, Oral, 3 times per day, Yamileth Frias MD, 25 mg at 11/30/22 151 bisacodyl (DULCOLAX) suppository 10 mg, 10 mg, Rectal, Daily PRN, Nghia Pryor MD cholecalciferol (VITAMIN D3) tablet 2,000 Units, 2,000 Units, Per Tube, Once a day, Nghia Pryor MD, 2,000 Units at 11/30/22 0932 cyclobenzaprine (FLEXERIL) tablet 5 mg, 5 mg, Oral, 3 times per day, Loy Dawson MD, 5 mg at 11/30/22 151 enoxaparin (LOVENOX) syringe 100 mg, 100 mg, Subcutaneous, Q12H SENDY, Nghia Pryor MD, 100 mg at 11/30/22 09 guaiFENesin (ROBITUSSIN) 100 MG/5ML liquid 10 mL, 10 mL, Enteral, BID PRN, Nghia Pryor MD hydrocortisone (ANUSOL-HC) 2.5 % rectal cream, , Rectal, 2 times per day, Loy Dawson MD, Given at 11/30/22 0933 hydrOXYzine (ATARAX) tablet 25 mg, 25 mg, Oral, Q6H PRN, Yamileth Frias MD, 25 mg at 11/29/22 212 lidocaine (LIDOCARE) 4 % patch 1 patch, 1 patch, Transdermal, Once a day, Loy Dawson MD, 1 patch at 11/30/22 0928 loratadine (CLARITIN) tablet 10 mg, 10 mg, Enteral, Once a day, Nghia Pryor MD, 10 mg at 11/30/22 0931 metoprolol tartrate (LOPRESSOR) tablet 25 mg, 25 mg, Enteral, 2 times per day, Nghia Pryor MD, 25 mg at 11/30/22 0931 ondansetron ODT (ZOFRAN-ODT) disintegrating tablet 4 mg, 4 mg, Per Tube, Q6H PRN, Marlee Bradley MD, 4 mg at 11/29/22 0937 oxyCODONE (ROXICODONE) immediate release tablet 5 mg, 5 mg, Enteral, Q4H PRN, Marlee Bradley MD, 5mg at 11/29/22 2128 pantoprazole-sodium bicarbonate 2mg/ml oral liquid 40 mg, 40 mg, Per Tube, Daily bef breakfast, Marlee Bradley MD, 40 mg at 11/30/22 0556 senna-docusate (SENOKOT-S) 8.6-50 MG tablet 2 tablet, 2 tablet, Enteral, Daily PRN, Nghia Pryor MD simethicone (MYLICON) chewable tablet 80 mg, 80 mg, Per Tube, BID PRN, Marlee Bradley MD, 80 mg at11/28/222051 tamsulosin (FLOMAX) 24 hr capsule 0.4 mg, 0.4 mg, Enteral, After Breakfast, Nghia Pryor MD, 0.4 mg at 11/30/22931 triamcinolone (KENALOG) 0.1 % ointment, , Apply externally, BID PRN, Nghia Pryro MD, Given at 11/20/222014 verapamil (CALAN) tablet 40 mg, 40 mg, Enteral, Q8H SENDY, Nghia Pryor MD, 40 mg at 11/30/22 1515 Warfarin Per Policy, , Does not apply, Daily, Nghia Pryor MD warfarin tablet 1 mg, 1 mg, Oral, Once, Nghia Pryor MD Review of Systems: Review of Systems Constitutional: Negative for appetite change. HENT: Negative for congestion. Respiratory: Negative for shortness of breath. Cardiovascular: Positive for leg swelling. Genitourinary: Negative for flank pain. Musculoskeletal: Negative for arthralgias and joint swelling. Neurological: Negative for headaches. Psychiatric/Behavioral: The patient is nervous/anxious. Physical Exam Vitals: 11/30/22 0728 BP: 120/76 Pulse: 89 Resp: 18 Temp: 98.3 ??F (36.8 ??C) SpO2: 93% Physical Exam Constitutional: General: She is not in acute distress. HENT: Head: Atraumatic. Eyes: Conjunctiva/sclera: Conjunctivae normal. Cardiovascular: Rate and Rhythm: Normal rate. Pulmonary: Effort: Pulmonary effort is normal. Abdominal: General: There is no distension. Skin: Findings: No erythema. Neurological: Coordination: Coordination abnormal. Neurologic Exam Lab Data Reviewed current lab results available to me today. Lab Results Component Value Date WBC 6.7 11/30/2022 HGB 10.0 (L) 11/30/2022 HCT 32.1 (L) 11/30/2022 MCV 95.0 11/30/2022 PLT 254 11/30/2022 Lab Results Component Value Date GLUCOSE 84 11/30/2022 CALCIUM 9.1 11/30/2022 NA 142 11/30/2022 K 3.8 11/30/2022 CO2 25 11/30/2022 CL 105 11/30/2022 BUN 16 11/30/2022 CREATININE 0.72 11/30/2022 ANIONGAP 12 11/30/2022 Imaging Reviewed current imaging results available to me today. XR abdomen 1 vws Result Date: 11/19/2022 NARRATIVE: Procedure: XR ABDOMEN KUB Exam Date: 11/19/2022 9:38 AM Location: [facility] Indication: abdominal fullness, reflux. Patient on peg tube feeding FINDINGS/IMPRESSION: Air is seen throughout the colonic structures. No dilated bowel loops are identified. There is no evidence tosuggest obstruction. There is no gross free intraperitoneal air. There does appear to be a gastrostomy tube superimposing the stomach. > Interpreting Provider: Rebel Hernandez MD on 11/19/2022 9:[address] head WO contrast Result Date: 11/19/2022 NARRATIVE: Procedure: CT HEAD WO CONTRAST Exam Date: 11/19/2022 9:31 AM Location: [facility] CT head without IV contrast INDICATION: worsening pain TECHNIQUE: CT examination of the head was performed from the base of the skull through the vertex using multiple axial images without IV contrast. FINDINGS: No old studies are available for comparison purposes. VIZ AI was utilized. Patient is status post right-sided craniectomy. There is extensive encephalomalacia involving the right frontal lobe with with some minimal involvement of the temporal and parietal lobe. There is no acute infarct. There is no mass. There is no hemorrhage. There are no extra-axial fluid collections. There is no midline shift. IMPRESSION: IMPRESSION: Right frontal craniectomy with extensive encephalomalacia involving the right frontal lobe as well as some involvement of the parietal and temporal lobes. > Interpreting Provider: Rebel Hernandez MD on 11/19/2022 9:36 AM Assessment & Plan: Consuelo Darby is a 42 y.o. female patient with Cerebrovascular accident functional impairment for rehab Cerebrovascular accident PT, OT for gait training and ADL training, Nursing for bowel and bladder care. Speech therapy for swallow evaluation and cognitive evaluation. Acute R MCA CVA Left dense hemiplegia LUE / LLE : 0/5 Left face droop Left neglect Spasticity: SENDY Baclofen 5 mg HS And flexeril TID s/p TNK and MT and TICI2b revascularization on 10/19. cerebral edema and midline shift s/p hemicraniectomy 10/20/22 Helmet Incision care R iliac and common femoral artery occlusion 10/30: R common femoral thrombectomy and patch angioplasty On Warfarin ( Lovenox bridge ) # Dysphagia: On modified diet from 11/26 Tolerating well Bolus tube feeds Dysarthria TTE showed mobile aortic valve vegetation. S /P IV abxs HTN Continue metoprolol , verapamil # headaches: On Tylenol and Oxy PRN Pian control # Neurogenic bladder: puentes removed on 11/27 Urology consult Flomax HS Urecholine 25 mg TID from 11/27 Skin/Wounds: - Skin integrity and Pressure ulcer prevention: frequent repositioning and adequate pressure relief. Maintain clean, dry skin. If needed, q2 hour turns when in bed and regular skin checks, application of protective barrier cream, toileting schedule. Wound RN consult Bowel & Bladder - monitor bowel movement - adjust scheduled and PRN bowel regimen as needed - monitor for adequate urinary output - should suspicion for urinary retention arise, PVR of random bladder scan will be performed for further assessment Continue current medical management. RECOMMENDATIONS At the current time, this inpatient hospital rehabilitation stay is medically necessary to achieve important health and functional goals. The patient requires frequent physician visits, 24-hour rehabilitation nursing, and a coordinated intensive rehabilitation program as described above to address complex medical, nursing, and rehabilitation needs. Continue inpatient comprehensive interdisciplinary rehabilitation to address strengthening, mobility skills, self care, cognitive functioning, speech, communication and swallowing needs. The patient continues to require the interdisciplinary team approach and 24 hour monitoring. DIET: Dietary Orders (From admission, onward) Start Ordered 11/29/22 1700 Nutritional supplement Magic Cup; Oral 3 times daily with meals Comments: Send chocolate Thrive TID End/Expires: Until Specified Question Answer Comment Select Supplement: Magic Cup Administration Route: Oral Place order in third green party system. Done 11/29/22 1250 11/29/22 1250 Jevity 1.5; Tube Feeding Bolus (mL): 240; Tube Feeding Bolus frequency: if po intake < 50% meals; Tube Feeding water flush (mL): 50; Water flush frequency: Every 4 hours Diet effective now End/Expires: Until Specified Question Answer Comment Tube Feeding Formula: Jevity 1.5 Tube Feeding Bolus (mL): 240 Tube Feeding Bolus frequency: if po intake < 50% meals Tube Feeding water flush (mL): 50 Water flush frequency: Every [address] order in third green party system. Done 11/29/22 1250 11/27/22 1516 Adult Diet Regular; 4 Pureed (NDD I); 2 Mildly Thick ([employer]) Diet effective now End/Expires: Until Specified References: [employer] Website Question Answer Comment Diet Type: Regular Diet Texture: 4 Pureed (NDD I) Liquid Consistency: 2 Mildly Thick ([employer]) Place order in third green party system. Done 11/27/22 1515 Patient Active Problem List Diagnosis Cerebrovascular accident Hypertension CHIN: YAMILETH FRIAS MD * Nghia Pryor MD - 11/30/2022 4:21 PM CDT HOSPITALIST PROGRESS NOTE Patient Name: Consuelo Darby : 1980 Medical Record: [id number] ATTENDING Yamileth Frias MD SUBJECTIVE 11/19 The patient is being seen for follow-up of Cerebrovascular accident. BP, BS , HR, labs, strength. .Chief Complaint CT head ok Headache much better Got upto chair without helmet =did ok Working on better helmet Consider spinal headache if recurs- d/w dr Villagran strength improving, able to do therapy ok. No chest pain, no SOB, no dizziness, no palpitations, no new neurologic symptoms. No cough, No nausea or vomiting, No abdominal pain. History also obtained from Nurse and staff about how the patient did overnight and during the day strength improving, able to do therapy ok. 11/20 Patient seen an examined Doing alright No new issues to report Vitals reviewed 11/21 Patient seen and examined earlier No new issues to report Vitals reviewed Resting comfortably 11/22 Patient seen and examined Doing alright at this time Resting comfortably Vitals reviewed 11/23 The patient was seen in the room this afternoon. The patient currently does not report any chest pain, shortness present nausea or vomiting No reported issues from the floor nurse. The most recent labs and vital signs were reviewed. 11/24: Patient seen and examined this morning. Patient complaining of bilateral hip pain. Have placed order for Flexeril and lidocaine patch. No acute events reported overnight. Blood work and vital signs remained stable. Continue current medical management. 11/25: Patient seen and examined this morning. Patient continues to complain of bilateral hip pain. Continue lidocaine patches. Have scheduled Flexeril 5 mg t.i.d.. Continue current medical management. 11/26: Patient seen and examined this morning. Patient continues to complain of hip pain. Follow up left hip x-ray. Follow up with PM&R for further recommendations. Continue Lovenox. Have discussed Coumadin dosing with pharmacy. Goal to have INR from 2-3. No acute events reported overnight. Continue current medical management. 11/27:Patient seen and examined this morning. Vitals and labs reviewed. Resting comfortably. No acute events overnight. Continue current medical management. 11/30 Patient seen and examined Doing ok. No new issues to report BRIEF HISTORY The patient is a 42 y.o. y/o female with history of HTN, GERD, presented tO ED with new left sided weakness and slurred speech Diagnosed with acute CVA s/p TNK and m1 occlusion S/P MT . c/b R iliac and common femoral artery occlusion s/p thrombectomy. Developed Fever: consulted ID, shanna abx, Cxs. - MRI brain w/wo done (11/10): cortical enhancement along the right frontal parietal and temporal regions 2/2 infarct progression but can't rule out cerebritis or infections.however LP neg. Also had glenis PEG fluid collection: Improved on abx - Urology replaced puentes (11/09-) Extubated, now on RA HOME Medications Prior to Admission medications Medication Sig Start Date End Date Taking? Authorizing Provider cetirizine (ZyrTEC) 10 MG tablet Take 1 tablet (10 mg total) by mouth in the morning. Yes Historical Provider, omeprazole (PriLOSEC) 20 MG capsule Take 1 capsule (20 mg total) by mouth in the morning. Yes Historical Provider, amitriptyline (ELAVIL) 50 MG tablet 2 tablets (100 mg total) nightly. Historical Provider, CURRENT Medications Current Facility-Administered Medications: acetaminophen (TYLENOL) tablet 500 mg, 500 mg, Per Tube, Q6H PRN, Nghia Pryor MD, 500 mg at 11/30/22 1215 baclofen (LIORESAL) tablet 5 mg, 5 mg, Oral, Nightly, Yamileth Frias MD, 5 mg at 11/29/22 2129 bethanechol (URECHOLINE) tablet 25 mg, 25 mg, Oral, 3 times per day, Yamileth Frias MD, 25 mg at 11/30/22 1516 bisacodyl (DULCOLAX) suppository 10 mg, 10 mg, Rectal, Daily PRN, Nghia Pryor MD cholecalciferol (VITAMIN D3) tablet 2,000 Units, 2,000 Units, Per Tube, Once a day, Nghia Pryor MD, 2,000 Units at 11/30/22 0932 cyclobenzaprine (FLEXERIL) tablet 5 mg, 5 mg, Oral, 3 times per day, Loy Dawson MD, 5 mg at 11/30/22 1516 enoxaparin (LOVENOX) syringe 100 mg, 100 mg, Subcutaneous, Q12H SENDY, Nghia Pryor MD, 100 mg at 11/30/22 09 guaiFENesin (ROBITUSSIN) 100 MG/5ML liquid 10 mL, 10 mL, Enteral, BID PRN, Nghia Pryor MD hydrocortisone (ANUSOL-HC) 2.5 % rectal cream, , Rectal, 2 times per day, Loy Dawson MD, Given at 11/30/22932 hydrOXYzine (ATARAX) tablet 25 mg, 25 mg, Oral, Q6H PRN, Yamileth Frias MD, 25 mg at 11/29/222127 lidocaine (LIDOCARE) 4 % patch 1 patch, 1 patch, Transdermal, Once a day, Loy Dawson MD, 1 patch at 11/30/22927 loratadine (CLARITIN) tablet 10 mg, 10 mg, Enteral, Once a day, Nghia Pryor MD, 10 mg at 11/30/22930 metoprolol tartrate (LOPRESSOR) tablet 25 mg, 25 mg, Enteral, 2 times per day, Nghia Pryor MD, 25 mg at 11/30/22930 ondansetron ODT (ZOFRAN-ODT) disintegrating tablet 4 mg, 4 mg, Per Tube, Q6H PRN, Marlee Bradley MD, 4 mg at 11/29/22936 oxyCODONE (ROXICODONE) immediate release tablet 5 mg, 5 mg, Enteral, Q4H PRN, Marlee Bradley MD, 5mg at 11/29/222127 pantoprazole-sodium bicarbonate 2mg/ml oral liquid 40 mg, 40 mg, Per Tube, Daily bef breakfast, Marlee Bradley MD, 40 mg at 11/30/22 0556 senna-docusate (SENOKOT-S) 8.6-50 MG tablet 2 tablet, 2 tablet, Enteral, Daily PRN, Nghia Pryor MD simethicone (MYLICON) chewable tablet 80 mg, 80 mg, Per Tube, BID PRN, Marlee Bradley MD, 80 mg at11/28/222051 tamsulosin (FLOMAX) 24 hr capsule 0.4 mg, 0.4 mg, Enteral, After Breakfast, Nghia Pryor MD, 0.4 mg at 11/30/2232 triamcinolone (KENALOG) 0.1 % ointment, , Apply externally, BID PRN, Nghia Pryor MD, Given at 11/20/222014 verapamil (CALAN) tablet 40 mg, 40 mg, Enteral, Q8H SENDY, Nghia Pryor MD, 40 mg at 11/30/22 1515 Warfarin Per Policy, , Does not apply, Daily, Nghia Pryor MD warfarin tablet 1 mg, 1 mg, Oral, Once, Nhgia Pryor MD DATA Vitals: 11/28/22191911/29/22 0733 11/29/22191911/30/22 0728 BP: 115/76 111/73 100/66 120/76 Pulse: 82 77 73 89 Resp: 15 17 15 18 Temp: 98.7 ??F (37.1 ??C) 97.7 ??F (36.5 ??C) 98.4 ??F (36.9 ??C) 98.3 ??F (36.8 ??C) TempSrc: Oral Oral Oral Oral SpO2: 95% 93% 93% 93% Weight: Height: Weights (last 3 days) None @ANTICOAGSUMMARY@ @FLOWDATE(2706:LAST)@ Intake/Output Summary (Last 24 hours) at 11/30/2022 1621 Last data filed at 11/30/2022 1257 Gross per 24 hour Intake 450 ml Output 500 ml Net -50 ml PHYSICAL EXAM General appearance: awake, alert, cooperative, no distress HEENT: Normocephalic, No icterus, No oral lesions, Oral and nasal mucosa moist Neck: Supple, no lymphadenopathy Eyes: EOMI, Conjunctiva normal, No discharge Cardiovascular: Normal heart rate, Normal rhythm, No murmurs, No rubs, No gallops Respiratory: Normal breath sounds, No respiratory distress, No wheezing, No rhonchi, No rales, No chest tenderness. GI: Bowel sounds normal, Soft, No tenderness, No rebound or guarding, No masses. Abdomen: soft without mass, non-tender, with normal bowel sounds Extremities: no clubbing, cyanosis or edema, no calf tenderness Musculoskeletal:no swelling of joints.no redness Psychologic: Mood ok, no suicidal ideation. Skin: No rash. 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 LABS CBC with Differential: Lab Results Component Value Date WBC 6.7 11/30/2022 HGB 10.0 (L) 11/30/2022 HCT 32.1 (L) 11/30/2022 PLT 254 11/30/2022 MCV 95.0 11/30/2022 MCH 29.6 11/30/2022 MCHC 31.2 11/30/2022 RDW 14.9 11/30/2022 [ BMP: Lab Results Component Value Date NA 142 11/30/2022 K 3.8 11/30/2022 CL 105 11/30/2022 CO2 25 11/30/2022 BUN 16 11/30/2022 CREATININE 0.72 11/30/2022 GLUCOSE 84 11/30/2022 CALCIUM 9.1 11/30/2022 ANIONGAP 12 11/30/2022 MG/PHOS: No results found for: MG, PHOS CKMB: No components found for: CKMB;2 PT/INR: Lab Results Component Value Date INR 2.7 (H) 11/30/2022 BNP: No results found for: BNP Last 3 Troponin: No components found for: TROPONINI;3 U/A: No results found for: COLORU, CLARITYU, GLUCOSEU, BILIRUBINUR, KETONESU, SPECGRAV, BLOODU, PHUR, UROBILINOGEN, NITRITE, LEUKOCYTESUR, MUCUS, RBCUA, WBCUA CMP: Lab Results Component Value Date NA 142 11/30/2022 K 3.8 11/30/2022 CL 105 11/30/2022 CO2 25 11/30/2022 BUN 16 11/30/2022 CREATININE 0.72 11/30/2022 GLUCOSE 84 11/30/2022 CALCIUM 9.1 11/30/2022 ANIONGAP 12 11/30/2022 LFT's: No results found for: ALB, PROT Ionized Calcium: No components found for: IONCA ABG: No results found for: PHART, [id number], PO2ART, YRY4SWQ, BEART, F9BLEAEY HgBA1c: No results found for: HGBA1C Lipid Panel: No results found for: CHOL, TRIG, HDL TSH: No results found for: TSH Lab Results Component Value Date GLUCOSE 84 11/30/2022 BUN 16 11/30/2022 CREATININE 0.72 11/30/2022 NA 142 11/30/2022 K 3.8 11/30/2022 CL 105 11/30/2022 CO2 25 11/30/2022 CALCIUM 9.1 11/30/2022 @RESU CBC: Recent Labs Lab Units 11/30/22228 WBC X(10)9/L BLOOD x10E9/L 6.7 HGB GM/DL BLOOD gm/dL 10.0* PLT CT X(10)9/L BLOOD x10E9/L 254 MCV FL BLOOD fl 95.0 BMP: Recent Labs Lab Units 11/30/22228 SODIUM MMOL/L BLOOD mmol/L 142 POTASSIUM MMOL/L BLOOD mmol/L 3.8 CHLORIDE mmol/L 105 CO2 mmol/L 25 BUN MG/DL BLOOD mg/dL 16 CREATININE mg/dL 0.72 GLUCOSE MG/DL BLOOD mg/dL 84 CALCIUM MG/DL BLOOD mg/dL 9.1 I reviewed the EKG tracing/Xray Recent Labs Lab Units 11/30/22228 SODIUM MMOL/L BLOOD mmol/L 142 POTASSIUM MMOL/L BLOOD mmol/L 3.8 CHLORIDE mmol/L 105 CO2 mmol/L 25 BUN MG/DL BLOOD mg/dL 16 CREATININE mg/dL 0.72 GLUCOSE MG/DL BLOOD mg/dL 84 CALCIUM MG/DL BLOOD mg/dL 9.1 ANION GAP BLOOD mmol/L 12 ASSESSMENT AND PLAN Principal Problem: Cerebrovascular accident Acute R MCA CVA Left hemiplegia /p TNK and MT and TICI2b revascularization on 10/19. Developed MCA syndrome s/p hemicrani. 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 - MRI brain w/wo done (11/10): cortical enhancement along the right frontal parietal and temporal regions 2/2 infarct progression but can't rule out cerebritis or infections.LP not concerning, however. -- glenis PEG fluid collection: Improved on abx - Urology replaced puentes (11/09-) TTE showed mobile aortic valve vegetation. IV abxs HTN Continue meds Migraine without aura Pian control GERD PPI Oral contraceptive use DVT Prophylaxis Obesity BMI 36 Nutrition consult Abn LFT Check hep screen Watch with statin D Pain management Today's pain score FEN. Nutrition consult for evaluation of nutritional status and the best diet. And for BMI evaluation and education regarding maintaining a healthy BMI Bladder management Voiding ok Bowel management . Titrate bowel medications for constipation/diarrhea. Skin. Nursing to address skin care throughout stay. Turn every 2 hrs Sleep. Monitor sleep-wake cycle. High Fall risk- Fall precautions GI Prophylaxis: DVT Prophylaxis: Full Resuscitation D/W patient , and attending physician about test results and treatment plan .No family in the room.Patient requiring monitoring of BP and HR while doing 3 hour intensive exercises to avoid fluctuations and hypotension . Aswell as monitoring of nutritional and fluid status , by weights, leg edema .Notified staff and patient to notify me of any change inconditions or new problems Electronically signed by: NGHIA PRYOR MD, at [facility] basically DUI may be GI need a I diving lysis consult subacute S do * Nghia Pryor MD - 11/29/2022 3:37 PM CDT HOSPITALIST PROGRESS NOTE Patient Name: Consuelo Darby : 1980 Medical Record: [id number] ATTENDING Yamileth Frias MD SUBJECTIVE 11/19 The patient is being seen for follow-up of Cerebrovascular accident. BP, BS , HR, labs, strength. .Chief Complaint CT head ok Headache much better Got upto chair without helmet =did ok Working on better helmet Consider spinal headache if recurs- d/w dr Villagran strength improving, able to do therapy ok. No chest pain, no SOB, no dizziness, no palpitations, no new neurologic symptoms. No cough, No nausea or vomiting, No abdominal pain. History also obtained from Nurse and staff about how the patient did overnight and during the day strength improving, able to do therapy ok. 11/20 Patient seen an examined Doing alright No new issues to report Vitals reviewed 11/21 Patient seen and examined earlier No new issues to report Vitals reviewed Resting comfortably 11/22 Patient seen and examined Doing alright at this time Resting comfortably Vitals reviewed 11/23 The patient was seen in the room this afternoon. The patient currently does not report any chest pain, shortness present nausea or vomiting No reported issues from the floor nurse. The most recent labs and vital signs were reviewed. 11/24: Patient seen and examined this morning. Patient complaining of bilateral hip pain. Have placed order for Flexeril and lidocaine patch. No acute events reported overnight. Blood work and vital signs remained stable. Continue current medical management. 11/25: Patient seen and examined this morning. Patient continues to complain of bilateral hip pain. Continue lidocaine patches. Have scheduled Flexeril 5 mg t.i.d.. Continue current medical management. 11/26: Patient seen and examined this morning. Patient continues to complain of hip pain. Follow up left hip x-ray. Follow up with PM&R for further recommendations. Continue Lovenox. Have discussed Coumadin dosing with pharmacy. Goal to have INR from 2-3. No acute events reported overnight. Continue current medical management. 11/27:Patient seen and examined this morning. Vitals and labs reviewed. Resting comfortably. No acute events overnight. Continue current medical management. BRIEF HISTORY The patient is a 42 y.o. y/o female with history of HTN, GERD, presented tO ED with new left sided weakness and slurred speech Diagnosed with acute CVA s/p TNK and m1 occlusion S/P MT . c/b R iliac and common femoral artery occlusion s/p thrombectomy. Developed Fever: consulted ID, broaden abx, Cxs. - MRI brain w/wo done (11/10): cortical enhancement along the right frontal parietal and temporal regions 2/2 infarct progression but can't rule out cerebritis or infections.however LP neg. Also had glenis PEG fluid collection: Improved on abx - Urology replaced puentes (11/09-) Extubated, now on RA HOME Medications Prior to Admission medications Medication Sig Start Date End Date Taking? Authorizing Provider cetirizine (ZyrTEC) 10 MG tablet Take 1 tablet (10 mg total) by mouth in the morning. Yes Historical Provider, omeprazole (PriLOSEC) 20 MG capsule Take 1 capsule (20 mg total) by mouth in the morning. Yes Historical Provider, amitriptyline (ELAVIL) 50 MG tablet 2 tablets (100 mg total) nightly. Historical Provider, CURRENT Medications Current Facility-Administered Medications: acetaminophen (TYLENOL) tablet 500 mg, 500 mg, Per Tube, Q6H PRN, Nghia Pryor MD, 500 mg at 11/29/22817 baclofen (LIORESAL) tablet 5 mg, 5 mg, Oral, Nightly, Yamileth Frias MD, 5 mg at 11/28/222051 bethanechol (URECHOLINE) tablet 25 mg, 25 mg, Oral, 3 times per day, Yamileth Frias MD, 25 mg at 11/29/22 152 bisacodyl (DULCOLAX) suppository 10 mg, 10 mg, Rectal, Daily PRN, Nghia Pryor MD cholecalciferol (VITAMIN D3) tablet 2,000 Units, 2,000 Units, Per Tube, Once a day, Nghia Pryor MD, 2,000 Units at 11/29/22816 cyclobenzaprine (FLEXERIL) tablet 5 mg, 5 mg, Oral, 3 times per day, Loy Dawson MD, 5 mg at 11/29/221522 enoxaparin (LOVENOX) syringe 100 mg, 100 mg, Subcutaneous, Q12H SENDY, Nghia Pryor MD, 100 mg at 11/29/22817 guaiFENesin (ROBITUSSIN) 100 MG/5ML liquid 10 mL, 10 mL, Enteral, BID PRN, Nghia Pryor MD hydrocortisone (ANUSOL-HC) 2.5 % rectal cream, , Rectal, 2 times per day, Loy Dawson MD, Given at 11/29/22817 hydrOXYzine (ATARAX) tablet 25 mg, 25 mg, Oral, Q6H PRN, Yamileth Frias MD, 25 mg at 11/29/22817 lidocaine (LIDOCARE) 4 % patch 1 patch, 1 patch, Transdermal, Once a day, Loy Dawson MD, 1 patch at 11/29/22816 loratadine (CLARITIN) tablet 10 mg, 10 mg, Enteral, Once a day, Nghia Pryor MD, 10 mg at 11/29/22817 metoprolol tartrate (LOPRESSOR) tablet 25 mg, 25 mg, Enteral, 2 times per day, Nghia Pryor MD, 25 mg at 11/29/22816 ondansetron ODT (ZOFRAN-ODT) disintegrating tablet 4 mg, 4 mg, Per Tube, Q6H PRN, Marlee Bradley MD, 4 mg at 11/29/22936 oxyCODONE (ROXICODONE) immediate release tablet 5 mg, 5 mg, Enteral, Q4H PRN, Marlee Bradley MD, 5mg at 11/28/222052 pantoprazole-sodium bicarbonate 2mg/ml oral liquid 40 mg, 40 mg, Per Tube, Daily bef breakfast, Marlee Bradley MD, 40 mg at 11/29/22 05 senna-docusate (SENOKOT-S) 8.6-50 MG tablet 2 tablet, 2 tablet, Enteral, Daily PRN, Nghia Pryor MD simethicone (MYLICON) chewable tablet 80 mg, 80 mg, Per Tube, BID PRN, Marlee Bradley MD, 80 mg at11/28/222051 tamsulosin (FLOMAX) 24 hr capsule 0.4 mg, 0.4 mg, Enteral, After Breakfast, Nghia Pryor MD, 0.4 mg at 11/29/22816 triamcinolone (KENALOG) 0.1 % ointment, , Apply externally, BID PRN, Nghia Pryor MD, Given at 11/20/222014 verapamil (CALAN) tablet 40 mg, 40 mg, Enteral, Q8H SENDY, Nghia Pryor MD, 40 mg at 11/29/22 1423 Warfarin Per Policy, , Does not apply, Daily, Nghia Pryor MD warfarin tablet 3 mg, 3 mg, Oral, Once, Nghia Pryor MD DATA Vitals: 11/28/22 0539 11/28/22 0724 11/28/22191911/29/2233 BP: 115/64 118/73 115/76 111/73 Pulse: 76 82 77 Resp: 17 Temp: 98.3 ??F (36.8 ??C) 98.7 ??F (37.1 ??C) 97.7 ??F (36.5 ??C) TempSrc: Oral Oral Oral SpO2: 95% 95% 93% Weight: Height: Weights (last 3 days) None @ANTICOAGSUMMARY@ @FLOWDATE(2706:LAST)@ Intake/Output Summary (Last 24 hours) at 11/29/2022 1539 Last data filed at 11/29/2022 1527 Gross per 24 hour Intake 1210 ml Output 1880 ml Net -670 ml PHYSICAL EXAM General appearance: awake, alert, cooperative, no distress HEENT: Normocephalic, No icterus, No oral lesions, Oral and nasal mucosa moist Neck: Supple, no lymphadenopathy Eyes: EOMI, Conjunctiva normal, No discharge Cardiovascular: Normal heart rate, Normal rhythm, No murmurs, No rubs, No gallops Respiratory: Normal breath sounds, No respiratory distress, No wheezing, No rhonchi, No rales, No chest tenderness. GI: Bowel sounds normal, Soft, No tenderness, No rebound or guarding, No masses. Abdomen: soft without mass, non-tender, with normal bowel sounds Extremities: no clubbing, cyanosis or edema, no calf tenderness Musculoskeletal:no swelling of joints.no redness Psychologic: Mood ok, no suicidal ideation. Skin: No rash. 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 LABS CBC with Differential: Lab Results Component Value Date WBC 7.4 11/27/2022 HGB 9.9 (L) 11/27/2022 HCT 31.8 (L) 11/27/2022 PLT 291 11/27/2022 MCV 95.2 11/27/2022 MCH 29.6 11/27/2022 MCHC 31.1 11/27/2022 RDW 15.4 (H) 11/27/2022 [ BMP: Lab Results Component Value Date NA 138 11/27/2022 K 3.8 11/27/2022 CL 101 11/27/2022 CO2 26 11/27/2022 BUN 13 11/27/2022 CREATININE 0.74 11/27/2022 GLUCOSE 124 (H) 11/27/2022 CALCIUM 9.3 11/27/2022 ANIONGAP 11 11/27/2022 MG/PHOS: No results found for: MG, PHOS CKMB: No components found for: CKMB;2 PT/INR: Lab Results Component Value Date INR 2.5 (H) 11/29/2022 BNP: No results found for: BNP Last 3 Troponin: No components found for: TROPONINI;3 U/A: No results found for: COLORU, CLARITYU, GLUCOSEU, BILIRUBINUR, KETONESU, SPECGRAV, BLOODU, PHUR, UROBILINOGEN, NITRITE, LEUKOCYTESUR, MUCUS, RBCUA, WBCUA CMP: Lab Results Component Value Date NA 138 11/27/2022 K 3.8 11/27/2022 CL 101 11/27/2022 CO2 26 11/27/2022 BUN 13 11/27/2022 CREATININE 0.74 11/27/2022 GLUCOSE 124 (H) 11/27/2022 CALCIUM 9.3 11/27/2022 ANIONGAP 11 11/27/2022 LFT's: No results found for: ALB, PROT Ionized Calcium: No components found for: IONCA ABG: No results found for: PHART, RRP7ECB, PO2ART, QUC5VNQ, BEART, B7OJAFSP HgBA1c: No results found for: HGBA1C Lipid Panel: No results found for: CHOL, TRIG, HDL TSH: No results found for: TSH Lab Results Component Value Date GLUCOSE 124 (H) 11/27/2022 BUN 13 11/27/2022 CREATININE 0.74 11/27/2022 NA 138 11/27/2022 K 3.8 11/27/2022 CL 101 11/27/2022 CO2 26 11/27/2022 CALCIUM 9.3 11/27/2022 @RESU CBC: Recent Labs Lab Units 11/27/22226 WBC X(10)9/L BLOOD x10E9/L 7.4 HGB GM/DL BLOOD gm/dL 9.9* PLT CT X(10)9/L BLOOD x10E9/L 291 MCV FL BLOOD fl 95.2 BMP: Recent Labs Lab Units 11/27/22226 SODIUM MMOL/L BLOOD mmol/L 138 POTASSIUM MMOL/L BLOOD mmol/L 3.8 CHLORIDE mmol/L 101 CO2 mmol/L 26 BUN MG/DL BLOOD mg/dL 13 CREATININE mg/dL 0.74 GLUCOSE MG/DL BLOOD mg/dL 124* CALCIUM MG/DL BLOOD mg/dL 9.3 I reviewed the EKG tracing/Xray Recent Labs Lab Units 11/27/22 0227 SODIUM MMOL/L BLOOD mmol/L 138 POTASSIUM MMOL/L BLOOD mmol/L 3.8 CHLORIDE mmol/L 101 CO2 mmol/L 26 BUN MG/DL BLOOD mg/dL 13 CREATININE mg/dL 0.74 GLUCOSE MG/DL BLOOD mg/dL 124* CALCIUM MG/DL BLOOD mg/dL 9.3 ANION GAP BLOOD mmol/L 11 ASSESSMENT AND PLAN Principal Problem: Cerebrovascular accident Acute R MCA CVA Left hemiplegia /p TNK and MT and TICI2b revascularization on 10/19. Developed MCA syndrome s/p hemicrani. 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 - MRI brain w/wo done (11/10): cortical enhancement along the right frontal parietal and temporal regions 2/2 infarct progression but can't rule out cerebritis or infections.LP not concerning, however. -- glenis PEG fluid collection: Improved on abx - Urology replaced puentes (11/09-) TTE showed mobile aortic valve vegetation. IV abxs HTN Continue meds Migraine without aura Pian control GERD PPI Oral contraceptive use DVT Prophylaxis Obesity BMI 36 Nutrition consult Abn LFT Check hep screen Watch with statin D Pain management Today's pain score FEN. Nutrition consult for evaluation of nutritional status and the best diet. And for BMI evaluation and education regarding maintaining a healthy BMI Bladder management Voiding ok Bowel management . Titrate bowel medications for constipation/diarrhea. Skin. Nursing to address skin care throughout stay. Turn every 2 hrs Sleep. Monitor sleep-wake cycle. High Fall risk- Fall precautions GI Prophylaxis: DVT Prophylaxis: Full Resuscitation D/W patient , and attending physician about test results and treatment plan .No family in the room.Patient requiring monitoring of BP and HR while doing 3 hour intensive exercises to avoid fluctuations and hypotension . Aswell as monitoring of nutritional and fluid status , by weights, leg edema .Notified staff and patient to notify me of any change inconditions or new problems Electronically signed by: NGHIA PRYOR MD, at [facility] basically DUI may be GI need a I diving lysis consult subacute S do * Roland Hof, RD - 11/29/2022 12:45 PM CDT CLINICAL NUTRITION REASSESSMENT: Pt seen for follow up. Pt reports appetite is decreased and c/o nausea and emesis. PO diet initiated after MBS on 11/27/22. Pt receiving Pureed (4)/Dysphagia 1 with Mildly Thick (2)/[employer] liquids, recorded po intake averaged 37% meals. Pt agrees to chocolate Thrive TID to aid po intake. Thrive (High Calorie High Protein Ice Cream) provides 270 anahy, 9 grams protein and 33 grams carb per 6 oz serving. Recommend bolus 240 mL Jevity 1.5 if po intake < 50% meals. Weight is stable. Labs reviewed. Hgb/hematocrit low. No new nutrition related meds. Skin care continues. Bowels moving. Recommendation: Advance diet texture per [employer], with texture advance recommend cardiac diet d/t CVA Send chocolate Thrive TID Switch to bolus 240 mL Jevity 1.5 if po intake < 50% meals. Patient Active Problem List Diagnosis Cerebrovascular accident Hypertension Weight: Admit Weight: 198 lb (89.8 kg) (11/17/22 1720) Weight Method: Bed scale (11/17/22 1720) Latest Weight: 198 lb (89.8 kg) (11/25/22 1513) Weight Method: Bed scale (11/25/22 1513) Weight Comment: stable Dietary Orders (From admission, onward) Start Ordered 11/28/22 1122 Jevity 1.5; Tube Feeding Bolus (mL): 400; Tube Feeding Bolus frequency: bid; Tube Feeding water flush (mL): 150; Water flush frequency: Every 4 hours Diet effective now End/Expires: Until Specified Question Answer Comment Tube Feeding Formula: Jevity 1.5 Tube Feeding Bolus (mL): 400 Tube Feeding Bolus frequency: bid Tube Feeding water flush (mL): 150 Water flush frequency: Every [address] order in third green party system. Done 11/28/22 1124 11/27/22 1516 Adult Diet Regular; 4 Pureed (NDD I); 2 Mildly Thick ([employer]) Diet effective now End/Expires: Until Specified References: [employer] Website Question Answer Comment Diet Type: Regular Diet Texture: 4 Pureed (NDD I) Liquid Consistency: 2 Mildly Thick ([employer]) Place order in third green party system. Done 11/27/22 1515 Food Allergies: No known food allergies. Food/Nutrient Intake: P.O. (mL): 120 mL Supplement Consumed (mL): 0 mL Percent Meal Eaten (%): 25 of Last Documented Meal Difficulty Chewing or Swallowing: Yes (Comment) Nutrition Related Concerns: . Nutrition Related Concerns Nutrition Related Concerns: Swallowing, Abdominal pain (dysphagia s/p PEG) NutritionSupport: Nutrition Support: Yes Select Nutrition Support: Enteral Enteral Route: PEG KCAL/24 Hours: 1200 Protein (gm/24 hours): 51 Water in Tube Feeding (ml/24 hours): 608 Flush Water (ml/24 hours): 120 % KCAL Needs: 73 % Protein Needs: 73 % Fluid Needs: 100 % RDI: 80 New Medications: No new nutrition related meds Relevant Labs: Most recent labs reviewed. H/H: Recent Labs Lab Units 11/27/22 0227 HGB GM/DL BLOOD gm/dL 9.9* HCT % BLOOD % 31.8* Recent Labs Lab Units 11/27/22 0227 SODIUM MMOL/L BLOOD mmol/L 138 POTASSIUM MMOL/L BLOOD mmol/L 3.8 CHLORIDE mmol/L 101 CO2 mmol/L 26 BUN MG/DL BLOOD mg/dL 13 CREATININE mg/dL 0.74 GLUCOSE MG/DL BLOOD mg/dL 124* CALCIUM MG/DL BLOOD mg/dL 9.3 ANION GAP BLOOD mmol/L 11 Skin: . PEG-J (double port) [id number] Status: Other (Comment) [REMOVED] Peripheral IV Left Antecubital-Dressing Status: Clean, Dry, Intact Last BM: Bowel Occurrence: Incontinent (11/27/22 0400) Care Plans: Plan of Care - Nutrition Care Plans 1 Author: Roland Mas RD Service: -- Author Type: Registered Dietitian Filed: 11/29/2022 12:42 PM Date of Service: 11/29/2022 12:42 PM Status: Signed Legal Coordinator: Roland Mas RD (Registered Dietitian) Problem: Inadequate Oral Intake Description: Oral food/beverage intake that is less than established reference standards or recommendations based on physiological needs. Related to: dysphagia As evidenced by: need for TF to meet nutritional needs. Goal: Maintain Nutritional Status Outcome: Progressing Flowsheets (Taken 11/29/2022 1241) Meals and Snacks: (pureed with mildly thick liquids) Texture modified diet Enteral and Parenteral Nutrition: (240 mL Jevity 1.5 if po < 50% meals.) -- Medical Food Supplement Therapy: (chocolate Thrive TID) Commercial beverage/Oral nutrition supplement Education Needs: none Monitor: Need for enteral nutrition, po intake, supplement intake, weight, labs, skin, BMs Continue to follow every 3-5 days Roland Lewis MS, RD/MELVA [employer] [id number] 11/29/22 12:45 PM CDT * Yamileth Frias MD - 11/29/2022 10:12 AM CDT PM&R PROGRESS NOTE This is Face to Face Visit note Consuelo Darby is a 42 y.o. female patient. Sitting in chair, pain well controlled. Functional gains seen. REVIEW OF FUNCTIONAL STATUS SM Functional Status PT Data (since 11/26/2022) Value Time User Bed Mobility Comment Pt in hospital bed on low air loss mattress. Mattress max inflated for support with mobility. Rolls left with cues and min assist to complete motion Rolls right with max assist to complete movement, support left side. Supine to sit with max assist of one and min of another for support to sit at edge of bed, control slide at edge. 11/28/2022 2:55 PM Kellie Moran, PT Gait Analysis Helmet on when up Sling to support left UE. Strap support at posterior hip: pt ambulated 5ft x2 with max assist of one and min of another at trunk, w/c follow. Max assist to advance and block left leg, sequencing cues for right grasp on bars, support to control left lean, facilitate midline positioning/wt shift right. Distance limited due to fatigue. 11/28/2022 2:55 PM Kellie Moran, PT Functional Status OT Data (since 11/26/2022) None TOILETING: dependent for toileting; completed clothing management and hygiene while supine in bed; assist needed for all aspects. BATHING: UB DRESSING: LB DRESSING: dependent, bed level for don/doffing pants and depends PUTTING ON/TAKING OFF FOOTWEAR: dependent Patient Active Problem List Diagnosis Cerebrovascular accident Hypertension Past Medical History: Diagnosis Date Gastroesophageal reflux disease Hypertension Migraine Current Facility-Administered Medications: acetaminophen (TYLENOL) tablet 500 mg, 500 mg, Per Tube, Q6H PRN, Nghia Pryor MD, 500 mg at 11/29/22817 baclofen (LIORESAL) tablet 5 mg, 5 mg, Oral, Nightly, Yamileth Frias MD, 5 mg at 11/28/222051 bethanechol (URECHOLINE) tablet 25 mg, 25 mg, Oral, 3 times per day, Yamileth Frias MD, 25 mg at 11/29/22816 bisacodyl (DULCOLAX) suppository 10 mg, 10 mg, Rectal, Daily PRN, Nghia Pryor MD cholecalciferol (VITAMIN D3) tablet 2,000 Units, 2,000 Units, Per Tube, Once a day, Nghia Pryor MD, 2,000 Units at 11/29/22816 cyclobenzaprine (FLEXERIL) tablet 5 mg, 5 mg, Oral, 3 times per day, Loy Dawson MD, 5 mg at 11/29/22816 enoxaparin (LOVENOX) syringe 100 mg, 100 mg, Subcutaneous, Q12H SENDY, Nghia Pryor MD, 100 mg at 11/29/22817 guaiFENesin (ROBITUSSIN) 100 MG/5ML liquid 10 mL, 10 mL, Enteral, BID PRN, Nghia Pryor MD hydrocortisone (ANUSOL-HC) 2.5 % rectal cream, , Rectal, 2 times per day, Loy Dawson MD, Given at 11/29/22817 hydrOXYzine (ATARAX) tablet 25 mg, 25 mg, Oral, Q6H PRN, Yamileth Frias MD, 25 mg at 11/29/22817 lidocaine (LIDOCARE) 4 % patch 1 patch, 1 patch, Transdermal, Once a day, Loy Dawson MD, 1 patch at 11/29/22816 loratadine (CLARITIN) tablet 10 mg, 10 mg, Enteral, Once a day, Nghia Pryor MD, 10 mg at 11/29/22817 metoprolol tartrate (LOPRESSOR) tablet 25 mg, 25 mg, Enteral, 2 times per day, Nghia Pryor MD, 25 mg at 11/29/22816 ondansetron ODT (ZOFRAN-ODT) disintegrating tablet 4 mg, 4 mg, Per Tube, Q6H PRN, Marlee Bradley MD, 4 mg at 11/29/22936 oxyCODONE (ROXICODONE) immediate release tablet 5 mg, 5 mg, Enteral, Q4H PRN, Marlee Bradley MD, 5mg at 11/28/222052 pantoprazole-sodium bicarbonate 2mg/ml oral liquid 40 mg, 40 mg, Per Tube, Daily bef breakfast, Marlee Bradley MD, 40 mg at 11/29/22531 senna-docusate (SENOKOT-S) 8.6-50 MG tablet 2 tablet, 2 tablet, Enteral, Daily PRN, Nghia Pryor MD simethicone (MYLICON) chewable tablet 80 mg, 80 mg, Per Tube, BID PRN, Marlee Bradley MD, 80 mg at11/28/222051 tamsulosin (FLOMAX) 24 hr capsule 0.4 mg, 0.4 mg, Enteral, After Breakfast, Nghia Pryor MD, 0.4 mg at 11/29/22816 triamcinolone (KENALOG) 0.1 % ointment, , Apply externally, BID PRN, Nghia Pryor MD, Given at 11/20/222014 verapamil (CALAN) tablet 40 mg, 40 mg, Enteral, Q8H SENDY, Nghia Pryor MD, 40 mg at 11/29/2233 Warfarin Per Policy, , Does not apply, Daily, Nghia Pryor MD warfarin tablet 3 mg, 3 mg, Oral, Once, Nghia Pryor MD Review of Systems: Review of Systems Constitutional: Negative for appetite change. HENT: Negative for congestion. Respiratory: Negative for shortness of breath. Cardiovascular: Positive for leg swelling. Genitourinary: Negative for flank pain. Musculoskeletal: Negative for arthralgias and joint swelling. Neurological: Negative for headaches. Psychiatric/Behavioral: The patient is nervous/anxious. Physical Exam Vitals: 11/29/22 0733 BP: 111/73 Pulse: 77 Resp: 17 Temp: 97.7 ??F (36.5 ??C) SpO2: 93% Physical Exam Constitutional: General: She is not in acute distress. HENT: Head: Atraumatic. Eyes: Conjunctiva/sclera: Conjunctivae normal. Cardiovascular: Rate and Rhythm: Normal rate. Pulmonary: Effort: Pulmonary effort is normal. Abdominal: General: There is no distension. Skin: Findings: No erythema. Neurological: Coordination: Coordination abnormal. Neurologic Exam Lab Data Reviewed current lab results available to me today. Lab Results Component Value Date WBC 7.4 11/27/2022 HGB 9.9 (L) 11/27/2022 HCT 31.8 (L) 11/27/2022 MCV 95.2 11/27/2022 PLT 291 11/27/2022 Lab Results Component Value Date GLUCOSE 124 (H) 11/27/2022 CALCIUM 9.3 11/27/2022 NA 138 11/27/2022 K 3.8 11/27/2022 CO2 26 11/27/2022 CL 101 11/27/2022 BUN 13 11/27/2022 CREATININE 0.74 11/27/2022 ANIONGAP 11 11/27/2022 Imaging Reviewed current imaging results available to me today. XR abdomen 1 vws Result Date: 11/19/2022 NARRATIVE: Procedure: XR ABDOMEN KUB Exam Date: 11/19/2022 9:38 AM Location: [facility] Indication: abdominal fullness, reflux. Patient on peg tube feeding FINDINGS/IMPRESSION: Air is seen throughout the colonic structures. No dilated bowel loops are identified. There is no evidence tosuggest obstruction. There is no gross free intraperitoneal air. There does appear to be a gastrostomy tube superimposing the stomach. > Interpreting Provider: Rebel Hernandez MD on 11/19/2022 9:[address] head WO contrast Result Date: 11/19/2022 NARRATIVE: Procedure: CT HEAD WO CONTRAST Exam Date: 11/19/2022 9:31 AM Location: [facility] CT head without IV contrast INDICATION: worsening pain TECHNIQUE: CT examination of the head was performed from the base of the skull through the vertex using multiple axial images without IV contrast. FINDINGS: No old studies are available for comparison purposes. VIZ AI was utilized. Patient is status post right-sided craniectomy. There is extensive encephalomalacia involving the right frontal lobe with with some minimal involvement of the temporal and parietal lobe. There is no acute infarct. There is no mass. There is no hemorrhage. There are no extra-axial fluid collections. There is no midline shift. IMPRESSION: IMPRESSION: Right frontal craniectomy with extensive encephalomalacia involving the right frontal lobe as well as some involvement of the parietal and temporal lobes. > Interpreting Provider: Rebel Hernandez MD on 11/19/2022 9:36 AM Assessment & Plan: Consuelo Darby is a 42 y.o. female patient with Cerebrovascular accident functional impairment for rehab Cerebrovascular accident PT, OT for gait training and ADL training, Nursing for bowel and bladder care. Speech therapy for swallow evaluation and cognitive evaluation. Acute R MCA CVA Left dense hemiplegia LUE / LLE : 0/5 Left face droop Left neglect Spasticity: SENDY Baclofen 5 mg HS And flexeril TID s/p TNK and MT and TICI2b revascularization on 10/19. 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 S /P IV abxs HTN Continue metoprolol , verapamil # headaches: On Tylenol and Oxy PRN Pian control # Neurogenic bladder: puentes removed on 11/27 Urology consult Flomax HS Urecholine 25 mg TID from 11/27 Skin/Wounds: - Skin integrity and Pressure ulcer prevention: frequent repositioning and adequate pressure relief. Maintain clean, dry skin. If needed, q2 hour turns when in bed and regular skin checks, application of protective barrier cream, toileting schedule. Wound RN consult Bowel & Bladder - monitor bowel movement - adjust scheduled and PRN bowel regimen as needed - monitor for adequate urinary output - should suspicion for urinary retention arise, PVR of random bladder scan will be performed for further assessment Continue current medical management. RECOMMENDATIONS At the current time, this inpatient hospital rehabilitation stay is medically necessary to achieve important health and functional goals. The patient requires frequent physician visits, 24-hour rehabilitation nursing, and a coordinated intensive rehabilitation program as described above to address complex medical, nursing, and rehabilitation needs. Continue inpatient comprehensive interdisciplinary rehabilitation to address strengthening, mobility skills, self care, cognitive functioning, speech, communication and swallowing needs. The patient continues to require the interdisciplinary team approach and 24 hour monitoring. DIET: Dietary Orders (From admission, onward) Start Ordered 11/28/22 112 Jevity 1.5; Tube Feeding Bolus (mL): 400; Tube Feeding Bolus frequency: bid; Tube Feeding water flush (mL): 150; Water flush frequency: Every 4 hours Diet effective now End/Expires: Until Specified Question Answer Comment Tube Feeding Formula: Jevity 1.5 Tube Feeding Bolus (mL): 400 Tube Feeding Bolus frequency: bid Tube Feeding water flush (mL): 150 Water flush frequency: Every [address] order in third green party system. Done 11/28/22 1124 11/27/22 1516 Adult Diet Regular; 4 Pureed (NDD I); 2 Mildly Thick ([employer]) Diet effective now End/Expires: Until Specified References: [employer] Website Question Answer Comment Diet Type: Regular Diet Texture: 4 Pureed (NDD I) Liquid Consistency: 2 Mildly Thick ([employer]) Place order in third green party system. Done 11/27/22 1515 Patient Active Problem List Diagnosis Cerebrovascular accident Hypertension Face to face for wheel chair 11/29/2022 need manual w/c at discharge due to s/p CVA, left hemiparesis. Patient has mobility limitations that significantly impairs his ability to participate in one or more of her MRADLS in the home. The patients mobility limitations cannot be resolved with the use of awalker or appropriate cane. The patient is not a functional ambulator at this time. The patients home provides adequate access for use of a manual wheelchair at this time. Patient is willing to use the manual wheelchair in the home . CHIN: YAMILETH FRIAS MD * Sandra Land, ManuelD - 11/28/2022 4:11 PM CDT [facility] Pharmacy Note Pharmacy Consultation - Warfarin Dosing and Monitoring Consuelo Darby is a 42 y.o. female who has been consulted for pharmacy warfarin dosing and monitoring for indication of embolic stroke. Labs: INR Date Value Ref Range Status 11/28/2022 1.9 (H) 0.9 - 1.1 Final 11/28/2022 3.8 (H) 0.9 - 1.1 Final 11/27/2022 1.5 (H) 0.9 - 1.1 Final 11/26/2022 1.6 (H) 0.9 - 1.1 Final 11/25/2022 1.7 (H) 0.9 - 1.1 Final HGB gm/dL Blood Date Value Ref Range Status 11/27/2022 9.9 (L) 12.0 - 15.6 gm/dL Final 11/23/2022 10.4 (L) 12.0 - 15.6 gm/dL Final 11/20/2022 10.6 (L) 12.0 - 15.6 gm/dL Final HCT % Blood Date Value Ref Range Status 11/27/2022 31.8 (L) 35.9 - 45.5 % Final 11/23/2022 35.0 (L) 35.9 - 45.5 % Final 11/20/2022 33.6 (L) 35.9 - 45.5 % Final Plt Ct X(10)9/L Blood Date Value Ref Range Status 11/27/2022 291 153 - 416 x10E9/L Final 11/23/2022 439 (H) 153 - 416 x10E9/L Final 11/20/2022 522 (H) 153 - 416 x10E9/L Final Current Facility-Administered Medications: acetaminophen (TYLENOL) tablet 500 mg, 500 mg, Per Tube, Q6H PRN, Nghia Pryor MD, 500 mg at 11/28/22 0835 baclofen (LIORESAL) tablet 5 mg, 5 mg, Oral, Nightly, Yamileth Frias MD bethanechol (URECHOLINE) tablet 25 mg, 25 mg, Oral, 3 times per day, Yamileth Frias MD, 25 mg at 11/28/22 1418 bisacodyl (DULCOLAX) suppository 10 mg, 10 mg, Rectal, Daily PRN, Nghia Pryor MD cholecalciferol (VITAMIN D3) tablet 2,000 Units, 2,000 Units, Per Tube, Once a day, Nghia Pryor MD, 2,000 Units at 11/28/22 0832 cyclobenzaprine (FLEXERIL) tablet 5 mg, 5 mg, Oral, 3 times per day, Loy Dawson MD, 5 mg at 11/28/22 1418 enoxaparin (LOVENOX) syringe 100 mg, 100 mg, Subcutaneous, Q12H SENDY, Nghia Pryor MD, 100 mg at 11/28/22 0833 guaiFENesin (ROBITUSSIN) 100 MG/5ML liquid 10 mL, 10 mL, Enteral, BID PRN, Nghia Pryor MD hydrocortisone (ANUSOL-HC) 2.5 % rectal cream, , Rectal, 2 times per day, Loy Dawson MD, Given at 11/28/22 0834 hydrOXYzine (ATARAX) tablet 25 mg, 25 mg, Oral, Q6H PRN, Yamileth Frias MD, 25 mg at 11/28/22 1418 lidocaine (LIDOCARE) 4 % patch 1 patch, 1 patch, Transdermal, Once a day, Loy Dawson MD, 1 patch at 11/28/22 0833 loratadine (CLARITIN) tablet 10 mg, 10 mg, Enteral, Once a day, Nghia Pryor MD, 10 mg at 11/28/22 0832 metoprolol tartrate (LOPRESSOR) tablet 25 mg, 25 mg, Enteral, 2 times per day, Nghia Pryor MD, 25 mg at 11/28/22 0832 ondansetron ODT (ZOFRAN-ODT) disintegrating tablet 4 mg, 4 mg, Per Tube, Q6H PRN, Marlee Bradley MD, 4 mg at 11/28/22 0835 oxyCODONE (ROXICODONE) immediate release tablet 5 mg, 5 mg, Enteral, Q4H PRN, Marlee Bradley MD, 5mg at 11/26/222045 pantoprazole-sodium bicarbonate 2mg/ml oral liquid 40 mg, 40 mg, Per Tube, Daily bef breakfast, Marlee Bradley MD, 40 mg at 11/28/22 0530 senna-docusate (SENOKOT-S) 8.6-50 MG tablet 2 tablet, 2 tablet, Enteral, Daily PRN, Nghia Pryor MD simethicone (MYLICON) chewable tablet 80 mg, 80 mg, Per Tube, BID PRN, Marlee Bradley MD, 80 mg at11/26/22 1246 tamsulosin (FLOMAX) 24 hr capsule 0.4 mg, 0.4 mg, Enteral, After Breakfast, Nghia Pryor MD, 0.4 mg at 11/28/22 0832 triamcinolone (KENALOG) 0.1 % ointment, , Apply externally, BID PRN, Nghia Pryor MD, Given at 11/20/222014 verapamil (CALAN) tablet 40 mg, 40 mg, Enteral, Q8H SENDY, Nghia Pryor MD, 40 mg at 11/28/22 1418 Warfarin Per Policy, , Does not apply, Daily, Nghia Pryor MD warfarin tablet 6 mg, 6 mg, Oral, Once, Nghia Pryor MD Assessment: Warfarin Indication: ischemic stroke due to septic emboli; MT c/b R iliac and common femoral arteryocclusion s/p thrombectomy. INR Goal: 2-3 Today's INR is 1.9 on redraw (initially reported as 3.8 today) and is Subtherapeutic. Bridging Therapy: Yes, describe: Lovenox 100mg BID until therapeutic Risk Factors for Bleeding: Lovenox Pertinent Medication Related to Warfarin: lovenox Plan: 1. Administer warfarin 6mg by mouth today. 2. Check INR on Sunday. Pharmacy will follow up with INR recheck and order subsequent warfarin doses pending INR results. 3.The patient will continue to be monitored by the pharmacy department for the duration of the length of stay for assurance of medication safety and efficacy. SANDRA LAND, PharmD 4:10 PM CDT 11/28/22 * Yamileth Frias MD - 11/28/2022 11:20 AM CDT PM&R PROGRESS NOTE This is Face to Face Visit note Consuelo Darby is a 42 y.o. female patient. In therapy this morning, advancing in therapy. Working with physical therapy this morning REVIEW OF FUNCTIONAL STATUS SM Functional Status PT Data (since 11/25/2022) None SM Functional Status OT Data (since 11/25/2022) None OT Therapeutic Activity: Therapeutic Exercise: Ms. Darby participated with left UE PROM. Continued tightness noted in left shoulder. Able to range left shoulder to approx 110 degrees before Ms. Darby c/o pain. Placed Ms. Darby's left UE in gravity eliminated position using deltoid aid. No active movement noted when in gravity eliminated. Endurance: Required frequent rest breaks. Requested to go back to bed only 2 times, however, was able to redirect back to task. Cognition: Decreased attention to task, problem solving, insight, memory, and impulsive at times. Patient Active Problem List Diagnosis Cerebrovascular accident Hypertension Past Medical History: Diagnosis Date Gastroesophageal reflux disease Hypertension Migraine Current Facility-Administered Medications: acetaminophen (TYLENOL) tablet 500 mg, 500 mg, Per Tube, Q6H PRN, Nghia Pryor MD, 500 mg at 11/28/22 0835 bisacodyl (DULCOLAX) suppository 10 mg, 10 mg, Rectal, Daily PRN, Nghia Pryor MD cholecalciferol (VITAMIN D3) tablet 2,000 Units, 2,000 Units, Per Tube, Once a day, Nghia Pryor MD, 2,000 Units at 11/28/22 0832 cyclobenzaprine (FLEXERIL) tablet 5 mg, 5 mg, Oral, 3 times per day, Loy Dawson MD, 5 mg at 11/28/22 0832 enoxaparin (LOVENOX) syringe 100 mg, 100 mg, Subcutaneous, Q12H SENDY, Nghia Pryor MD, 100 mg at 11/28/22 0833 guaiFENesin (ROBITUSSIN) 100 MG/5ML liquid 10 mL, 10 mL, Enteral, BID PRN, Nghia Pryor MD hydrocortisone (ANUSOL-HC) 2.5 % rectal cream, , Rectal, 2 times per day, Loy Dawson MD, Given at 11/28/22 0834 hydrOXYzine (ATARAX) tablet 25 mg, 25 mg, Oral, Q6H PRN, Yamileth Frias MD, 25 mg at 11/28/22 0835 lidocaine (LIDOCARE) 4 % patch 1 patch, 1 patch, Transdermal, Once a day, Loy Dawson MD, 1 patch at 11/28/22 0833 loratadine (CLARITIN) tablet 10 mg, 10 mg, Enteral, Once a day, Nghia Pryor MD, 10 mg at 11/28/22 0832 metoprolol tartrate (LOPRESSOR) tablet 25 mg, 25 mg, Enteral, 2 times per day, Nghia Pryor MD, 25 mg at 11/28/22 0832 ondansetron ODT (ZOFRAN-ODT) disintegrating tablet 4 mg, 4 mg, Per Tube, Q6H PRN, Marlee Bradley MD, 4 mg at 11/28/22 0835 oxyCODONE (ROXICODONE) immediate release tablet 5 mg, 5 mg, Enteral, Q4H PRN, Marlee Bradley MD, 5mg at 11/26/22 2046 pantoprazole-sodium bicarbonate 2mg/ml oral liquid 40 mg, 40 mg, Per Tube, Daily bef breakfast, Marlee Bradley MD, 40 mg at 11/28/22 0530 senna-docusate (SENOKOT-S) 8.6-50 MG tablet 2 tablet, 2 tablet, Enteral, Daily PRN, Nghia Pryor MD simethicone (MYLICON) chewable tablet 80 mg, 80 mg, Per Tube, BID PRN, Marlee Bradley MD, 80 mg at11/26/22 1246 tamsulosin (FLOMAX) 24 hr capsule 0.4 mg, 0.4 mg, Enteral, After Breakfast, Nghia Pryor MD, 0.4 mg at 11/28/22 0832 triamcinolone (KENALOG) 0.1 % ointment, , Apply externally, BID PRN, Nghia Pryor MD, Given at 11/20/222014 verapamil (CALAN) tablet 40 mg, 40 mg, Enteral, Q8H SENDY, Nghia Pryor MD, 40 mg at 11/28/22 0529 Warfarin Per Policy, , Does not apply, Daily, Nghia Pryor MD Review of Systems: Review of Systems Constitutional: Negative for appetite change. HENT: Negative for congestion. Respiratory: Negative for shortness of breath. Cardiovascular: Positive for leg swelling. Genitourinary: Negative for flank pain. Musculoskeletal: Negative for arthralgias and joint swelling. Neurological: Negative for headaches. Psychiatric/Behavioral: The patient is nervous/anxious. Physical Exam Vitals: 11/28/22 0724 BP: 118/73 Pulse: 76 Resp: 17 Temp: 98.3 ??F (36.8 ??C) SpO2: 95% Physical Exam Constitutional: General: She is not in acute distress. HENT: Head: Atraumatic. Eyes: Conjunctiva/sclera: Conjunctivae normal. Cardiovascular: Rate and Rhythm: Normal rate. Pulmonary: Effort: Pulmonary effort is normal. Abdominal: General: There is no distension. Skin: Findings: No erythema. Neurological: Coordination: Coordination abnormal. Neurologic Exam Lab Data Reviewed current lab results available to me today. Lab Results Component Value Date WBC 7.4 11/27/2022 HGB 9.9 (L) 11/27/2022 HCT 31.8 (L) 11/27/2022 MCV 95.2 11/27/2022 PLT 291 11/27/2022 Lab Results Component Value Date GLUCOSE 124 (H) 11/27/2022 CALCIUM 9.3 11/27/2022 NA 138 11/27/2022 K 3.8 11/27/2022 CO2 26 11/27/2022 CL 101 11/27/2022 BUN 13 11/27/2022 CREATININE 0.74 11/27/2022 ANIONGAP 11 11/27/2022 Imaging Reviewed current imaging results available to me today. XR abdomen 1 vws Result Date: 11/19/2022 NARRATIVE: Procedure: XR ABDOMEN KUB Exam Date: 11/19/2022 9:38 AM Location: [facility] Indication: abdominal fullness, reflux. Patient on peg tube feeding FINDINGS/IMPRESSION: Air is seen throughout the colonic structures. No dilated bowel loops are identified. There is no evidence tosuggest obstruction. There is no gross free intraperitoneal air. There does appear to be a gastrostomy tube superimposing the stomach. > Interpreting Provider: Rebel Hernandez MD on 11/19/2022 9:[address] head WO contrast Result Date: 11/19/2022 NARRATIVE: Procedure: CT HEAD WO CONTRAST Exam Date: 11/19/2022 9:31 AM Location: [facility] CT head without IV contrast INDICATION: worsening pain TECHNIQUE: CT examination of the head was performed from the base of the skull through the vertex using multiple axial images without IV contrast. FINDINGS: No old studies are available for comparison purposes. VIZ AI was utilized. Patient is status post right-sided craniectomy. There is extensive encephalomalacia involving the right frontal lobe with with some minimal involvement of the temporal and parietal lobe. There is no acute infarct. There is no mass. There is no hemorrhage. There are no extra-axial fluid collections. There is no midline shift. IMPRESSION: IMPRESSION: Right frontal craniectomy with extensive encephalomalacia involving the right frontal lobe as well as some involvement of the parietal and temporal lobes. > Interpreting Provider: Rebel Hernandez MD on 11/19/2022 9:36 AM Assessment & Plan: Consuelo Darby is a 42 y.o. female patient with Cerebrovascular accident functional impairment for rehab Cerebrovascular accident PT, OT for gait training and ADL training, Nursing for bowel and bladder care. Speech therapy for swallow evaluation and cognitive evaluation. Acute R MCA CVA Left dense hemiplegia LUE / LLE : 0/5 Left face droop Left neglect Spasticity: SENDY Baclofen 5 mg HS And flexeril TID s/p TNK and MT and TICI2b revascularization on 10/19. cerebral edema and midline shift s/p hemicraniectomy 10/20/22 Helmet Incision care R iliac and common femoral artery occlusion 10/30: R common femoral thrombectomy and patch angioplasty On Warfarin # Dysphagia: On modified diet from 11/26 Bolus tube feeds Dysarthria TTE showed mobile aortic valve vegetation. S /P IV abxs HTN Continue metoprolol , verapamil # headaches: On Tylenol and Oxy PRN Pian control # Neurogenic bladder: puentes removed on 11/27 Urology consult Flomax HS Urecholine 25 mg TID from 11/27 Skin/Wounds: - Skin integrity and Pressure ulcer prevention: frequent repositioning and adequate pressure relief. Maintain clean, dry skin. If needed, q2 hour turns when in bed and regular skin checks, application of protective barrier cream, toileting schedule. Wound RN consult Bowel & Bladder - monitor bowel movement - adjust scheduled and PRN bowel regimen as needed - monitor for adequate urinary output - should suspicion for urinary retention arise, PVR of random bladder scan will be performed for further assessment Continue current medical management. RECOMMENDATIONS At the current time, this inpatient hospital rehabilitation stay is medically necessary to achieve important health and functional goals. The patient requires frequent physician visits, 24-hour rehabilitation nursing, and a coordinated intensive rehabilitation program as described above to address complex medical, nursing, and rehabilitation needs. Continue inpatient comprehensive interdisciplinary rehabilitation to address strengthening, mobility skills, self care, cognitive functioning, speech, communication and swallowing needs. The patient continues to require the interdisciplinary team approach and 24 hour monitoring. DIET: Dietary Orders (From admission, onward) Start Ordered 11/28/22 112 Jevity 1.5; Tube Feeding Bolus (mL): 400; Tube Feeding Bolus frequency: bid; Tube Feeding water flush (mL): 150; Water flush frequency: Every 4 hours Diet effective now End/Expires: Until Specified Question Answer Comment Tube Feeding Formula: Jevity 1.5 Tube Feeding Bolus (mL): 400 Tube Feeding Bolus frequency: bid Tube Feeding water flush (mL): 150 Water flush frequency: Every [address] order in third green party system. Done 11/28/22 1124 11/27/22 1516 Adult Diet Regular; 4 Pureed (NDD I); 2 Mildly Thick ([employer]) Diet effective now End/Expires: Until Specified References: [employer]DSI Website Question Answer Comment Diet Type: Regular Diet Texture: 4 Pureed (NDD I) Liquid Consistency: 2 Mildly Thick ([employer]) Place order in third green party system. Done 11/27/22 1515 Patient Active Problem List Diagnosis Cerebrovascular accident Hypertension Team Conference: 11/28/2022 Please refer to team conference note from today for details Case discussed with social welfare administrator/ PT/OT/nursing . 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 female patient. Pain reasonably well controlled. Improvements with therapy REVIEW OF FUNCTIONAL STATUS Functional Status PT Data (since 11/24/2022) None TRANSFERS: Supine to sit from air mattress set to auto-firm with HOB elevated with max A of one for trunk liftassist and L UE and LE management Attempted Myra Flex machine with L sling, however, sling starting to slide up and near feeding tube, so client lowered to bed and transferred with sliding board Bed with low air mattress set to auto-firm with sliding board with max A of one and mod A of another for lift assist and managing L LE, sling on L UE for glenohumeral support Sit to/from airconditioning drafting officer parallel bars with max A for L LE knee block, anterior weight shift, lift assist; sling on L UE for glenohumeral support; stood x 2 times GAIT: Ambulates 8 feet in parallel bars with max A of one and close w/c follow for safety. Requiresassist with advancing and blocking L LE, weight shift, cues for upright posture and to look to midline. Functional Status OT Data (since 11/24/2022) None Patient Active Problem List Diagnosis Cerebrovascular accident Hypertension Past Medical History: Diagnosis Date Gastroesophageal reflux disease Hypertension Migraine Current Facility-Administered Medications: acetaminophen (TYLENOL) tablet 500 mg, 500 mg, Per Tube, Q6H PRN, Nghia Pryor MD, 500 mg at 11/26/22 1237 bisacodyl (DULCOLAX) suppository 10 mg, 10 mg, Rectal, Daily PRN, Nghia Pryor MD cholecalciferol (VITAMIN D3) tablet 2,000 Units, 2,000 Units, Per Tube, Once a day, Nghia Pryor MD, 2,000 Units at 11/26/22932 cyclobenzaprine (FLEXERIL) tablet 5 mg, 5 mg, Oral, 3 times per day, Loy Dawson MD, 5 mg at 11/26/222105 enoxaparin (LOVENOX) syringe 100 mg, 100 mg, Subcutaneous, Q12H SENDY, Nghia Pryor MD, 100 mg at 11/26/222105 guaiFENesin (ROBITUSSIN) 100 MG/5ML liquid 10 mL, 10 mL, Enteral, BID PRN, Nghia Pryor MD hydrocortisone (ANUSOL-HC) 2.5 % rectal cream, , Rectal, 2 times per day, Loy Dawson MD, Given at 11/26/222046 hydrOXYzine (ATARAX) tablet 25 mg, 25 mg, Oral, Q6H PRN, Yamileth Frias MD, 25 mg at 11/25/22 121 lidocaine (LIDOCARE) 4 % patch 1 patch, 1 patch, Transdermal, Once a day, Loy Dawson MD, 1 patch at 11/25/22906 loratadine (CLARITIN) tablet 10 mg, 10 mg, Enteral, Once a day, Nghia Pryor MD, 10 mg at 11/26/22939 metoprolol tartrate (LOPRESSOR) tablet 25 mg, 25 mg, Enteral, 2 times per day, Nghia Pryor MD, 25 mg at 11/26/222104 ondansetron ODT (ZOFRAN-ODT) disintegrating tablet 4 mg, 4 mg, Per Tube, Q6H PRN, Marlee Bradley MD, 4 mg at 11/25/22 121 oxyCODONE (ROXICODONE) immediate release tablet 5 mg, 5 mg, Enteral, Q4H PRN, Marlee Bradley MD, 5mg at 11/26/222045 pantoprazole-sodium bicarbonate 2mg/ml oral liquid 40 mg, 40 mg, Per Tube, Daily bef breakfast, Marlee Bradley MD, 40 mg at 11/27/22 0724 senna-docusate (SENOKOT-S) 8.6-50 MG tablet 2 tablet, 2 tablet, Enteral, Daily PRN, Nghia Pryor MD simethicone (MYLICON) chewable tablet 80 mg, 80 mg, Per Tube, BID PRN, Marlee Bradley MD, 80 mg at11/26/22 1246 tamsulosin (FLOMAX) 24 hr capsule 0.4 mg, 0.4 mg, Enteral, After Breakfast, Nghia Pryor MD, 0.4 mg at 11/26/22 0938 triamcinolone (KENALOG) 0.1 % ointment, , Apply externally, BID PRN, Nghia Pryor MD, Given at 11/20/222014 verapamil (CALAN) tablet 40 mg, 40 mg, Enteral, Q8H SENDY, Nghia Pryor MD, 40 mg at 11/27/22 0542 Warfarin Per Policy, , Does not apply, Daily, Nghia Pryor MD warfarin tablet 7.5 mg, 7.5 mg, Oral, Once, Loy Dawson MD Review of Systems: Review of Systems Constitutional: Negative for appetite change. HENT: Negative for congestion. Respiratory: Negative for shortness of breath. Cardiovascular: Positive for leg swelling. Genitourinary: Negative for flank pain. Musculoskeletal: Negative for arthralgias and joint swelling. Neurological: Negative for headaches. Psychiatric/Behavioral: The patient is nervous/anxious. Physical Exam Vitals: 11/27/22 0721 BP: 107/67 Pulse: 88 Resp: 20 Temp: 98.7 ??F (37.1 ??C) SpO2: 94% Physical Exam Constitutional: General: She is not in acute distress. HENT: Head: Atraumatic. Eyes: Conjunctiva/sclera: Conjunctivae normal. Cardiovascular: Rate and Rhythm: Normal rate. Pulmonary: Effort: Pulmonary effort is normal. Abdominal: General: There is no distension. Skin: Findings: No erythema. Neurological: Coordination: Coordination abnormal. Neurologic Exam Lab Data Reviewed current lab results available to me today. Lab Results Component Value Date WBC 7.4 11/27/2022 HGB 9.9 (L) 11/27/2022 HCT 31.8 (L) 11/27/2022 MCV 95.2 11/27/2022 PLT 291 11/27/2022 Lab Results Component Value Date GLUCOSE 124 (H) 11/27/2022 CALCIUM 9.3 11/27/2022 NA 138 11/27/2022 K 3.8 11/27/2022 CO2 26 11/27/2022 CL 101 11/27/2022 BUN 13 11/27/2022 CREATININE 0.74 11/27/2022 ANIONGAP 11 11/27/2022 Imaging Reviewed current imaging results available to me today. XR abdomen 1 vws Result Date: 11/19/2022 NARRATIVE: Procedure: XR ABDOMEN KUB Exam Date: 11/19/2022 9:38 AM Location: [facility] Indication: abdominal fullness, reflux. Patient on peg tube feeding FINDINGS/IMPRESSION: Air is seen throughout the colonic structures. No dilated bowel loops are identified. There is no evidence tosuggest obstruction. There is no gross free intraperitoneal air. There does appear to be a gastrostomy tube superimposing the stomach. > Interpreting Provider: Rebel Hernandez MD on 11/19/2022 9:[address] head WO contrast Result Date: 11/19/2022 NARRATIVE: Procedure: CT HEAD WO CONTRAST Exam Date: 11/19/2022 9:31 AM Location: [facility] CT head without IV contrast INDICATION: worsening pain TECHNIQUE: CT examination of the head was performed from the base of the skull through the vertex using multiple axial images without IV contrast. FINDINGS: No old studies are available for comparison purposes. VIZ AI was utilized. Patient is status post right-sided craniectomy. There is extensive encephalomalacia involving the right frontal lobe with with some minimal involvement of the temporal and parietal lobe. There is no acute infarct. There is no mass. There is no hemorrhage. There are no extra-axial fluid collections. There is no midline shift. IMPRESSION: IMPRESSION: Right frontal craniectomy with extensive encephalomalacia involving the right frontal lobe as well as some involvement of the parietal and temporal lobes. > Interpreting Provider: Rebel Hernandez MD on 11/19/2022 9:36 AM Assessment & Plan: Consuelo Darby is a 42 y.o. female patient with Cerebrovascular accident functional impairment for rehab Cerebrovascular accident PT, OT for gait training and ADL training, Nursing for bowel and bladder care. Speech therapy for swallow evaluation and cognitive evaluation. Acute R MCA CVA Left dense hemiplegia LUE / LLE : 0/5 Left face droop Left neglect s/p TNK and MT and TICI2b revascularization on 10/19. cerebral edema and midline shift s/p hemicraniectomy 10/20/22 Helmet Incision care R iliac and common femoral artery occlusion 10/30: R common femoral thrombectomy and patch angioplasty On Warfarin # Dysphagia: MBS today Ice chips PRN Tube feeds Dysarthria NPO -- glenis PEG fluid collection: TTE showed mobile aortic valve vegetation. S /P IV abxs HTN Continue metoprolol , verapamil # headaches: On Tylenol and Oxy PRN Pian control # Neurogenic bladder: Failed Voiding trials on 11/22 puentes placed back on 11/23 Urology consult Skin/Wounds: - Skin integrity and Pressure ulcer prevention: frequent repositioning and adequate pressure relief. Maintain clean, dry skin. If needed, q2 hour turns when in bed and regular skin checks, application of protective barrier cream, toileting schedule. Wound RN consult Bowel & Bladder - monitor bowel movement - adjust scheduled and PRN bowel regimen as needed - monitor for adequate urinary output - should suspicion for urinary retention arise, PVR of random bladder scan will be performed for further assessment Continue current medical management. RECOMMENDATIONS At the current time, this inpatient hospital rehabilitation stay is medically necessary to achieve important health and functional goals. The patient requires frequent physician visits, 24-hour rehabilitation nursing, and a coordinated intensive rehabilitation program as described above to address complex medical, nursing, and rehabilitation needs. Continue inpatient comprehensive interdisciplinary rehabilitation to address strengthening, mobility skills, self care, cognitive functioning, speech, communication and swallowing needs. The patient continues to require the interdisciplinary team approach and 24 hour monitoring. DIET: Dietary Orders (From admission, onward) Start Ordered 11/17/22 1746 NPO Diet, Tube Feeding No Tray Strict NPO; Jevity 1.5; Tube Feeding Continuous rate (mL/hr): 50; Tube Feeding water flush (mL): 150; Water Flush type: Water; Water flush frequency: Every 4 hours Diet effective now End/Expires: Until Specified Question Answer Comment NPO Status: Strict NPO Tube Feeding Formula: Jevity 1.5 Tube Feeding Continuous rate (mL/hr): 50 Tube Feeding water flush (mL): 150 Water Flush type: Water Water flush frequency: Every [address] order in third green party system. Done 11/17/22 1749 Patient Active Problem List Diagnosis Cerebrovascular accident Hypertension CHIN: YAMILETH FRIAS MD * Loy Dawson MD - 11/27/2022 8:57 AM CDT HOSPITALIST PROGRESS NOTE Patient Name: Consuelo Darby : 1980 Medical Record: [id number] ATTENDING Yamileth Frias MD SUBJECTIVE 11/19 The patient is being seen for follow-up of Cerebrovascular accident. BP, BS , HR, labs, strength. .Chief Complaint CT head ok Headache much better Got upto chair without helmet =did ok Working on better helmet Consider spinal headache if recurs- d/w dr Villagran strength improving, able to do therapy ok. No chest pain, no SOB, no dizziness, no palpitations, no new neurologic symptoms. No cough, No nausea or vomiting, No abdominal pain. History also obtained from Nurse and staff about how the patient did overnight and during the day strength improving, able to do therapy ok. 11/20 Patient seen an examined Doing alright No new issues to report Vitals reviewed 11/21 Patient seen and examined earlier No new issues to report Vitals reviewed Resting comfortably 11/22 Patient seen and examined Doing alright at this time Resting comfortably Vitals reviewed 11/23 The patient was seen in the room this afternoon. The patient currently does not report any chest pain, shortness present nausea or vomiting No reported issues from the floor nurse. The most recent labs and vital signs were reviewed. 11/24: Patient seen and examined this morning. Patient complaining of bilateral hip pain. Have placed order for Flexeril and lidocaine patch. No acute events reported overnight. Blood work and vital signs remained stable. Continue current medical management. 11/25: Patient seen and examined this morning. Patient continues to complain of bilateral hip pain. Continue lidocaine patches. Have scheduled Flexeril 5 mg t.i.d.. Continue current medical management. 11/26: Patient seen and examined this morning. Patient continues to complain of hip pain. Follow up left hip x-ray. Follow up with PM&R for further recommendations. Continue Lovenox. Have discussed Coumadin dosing with pharmacy. Goal to have INR from 2-3. No acute events reported overnight. Continue current medical management. 11/27:Patient seen and examined this morning. Vitals and labs reviewed. Resting comfortably. No acute events overnight. Continue current medical management. BRIEF HISTORY The patient is a 42 y.o. y/o female with history of HTN, GERD, presented tO ED with new left sided weakness and slurred speech Diagnosed with acute CVA s/p TNK and m1 occlusion S/P MT . c/b R iliac and common femoral artery occlusion s/p thrombectomy. Developed Fever: consulted ID, broaden abx, Cxs. - MRI brain w/wo done (11/10): cortical enhancement along the right frontal parietal and temporal regions 2/2 infarct progression but can't rule out cerebritis or infections.however LP neg. Also had glenis PEG fluid collection: Improved on abx - Urology replaced puentes (11/09-) Extubated, now on RA HOME Medications Prior to Admission medications Medication Sig Start Date End Date Taking? Authorizing Provider cetirizine (ZyrTEC) 10 MG tablet Take 1 tablet (10 mg total) by mouth in the morning. Yes Historical Provider, omeprazole (PriLOSEC) 20 MG capsule Take 1 capsule (20 mg total) by mouth in the morning. Yes Historical Provider, amitriptyline (ELAVIL) 50 MG tablet 2 tablets (100 mg total) nightly. Historical Provider, CURRENT Medications Current Facility-Administered Medications: acetaminophen (TYLENOL) tablet 500 mg, 500 mg, Per Tube, Q6H PRN, Nghia Pryor MD, 500 mg at 11/26/22 1237 bisacodyl (DULCOLAX) suppository 10 mg, 10 mg, Rectal, Daily PRN, Nghia Pryor MD cholecalciferol (VITAMIN D3) tablet 2,000 Units, 2,000 Units, Per Tube, Once a day, Nghia Pryor MD, 2,000 Units at 11/26/22 0933 cyclobenzaprine (FLEXERIL) tablet 5 mg, 5 mg, Oral, 3 times per day, Loy Dawson MD, 5 mg at 11/26/222105 enoxaparin (LOVENOX) syringe 100 mg, 100 mg, Subcutaneous, Q12H SENDY, Nghia Pryor MD, 100 mg at 11/26/222105 guaiFENesin (ROBITUSSIN) 100 MG/5ML liquid 10 mL, 10 mL, Enteral, BID PRN, Nghia Pryor MD hydrocortisone (ANUSOL-HC) 2.5 % rectal cream, , Rectal, 2 times per day, Loy Dawson MD, Given at 11/26/222046 hydrOXYzine (ATARAX) tablet 25 mg, 25 mg, Oral, Q6H PRN, Yamileth Frias MD, 25 mg at 11/25/221210 lidocaine (LIDOCARE) 4 % patch 1 patch, 1 patch, Transdermal, Once a day, Loy Dawson MD, 1 patch at 11/25/22906 loratadine (CLARITIN) tablet 10 mg, 10 mg, Enteral, Once a day, Nghia Pryor MD, 10 mg at 11/26/22939 metoprolol tartrate (LOPRESSOR) tablet 25 mg, 25 mg, Enteral, 2 times per day, Nghia Pryor MD, 25 mg at 11/26/222104 ondansetron ODT (ZOFRAN-ODT) disintegrating tablet 4 mg, 4 mg, Per Tube, Q6H PRN, Marlee Bradley MD, 4 mg at 11/25/221210 oxyCODONE (ROXICODONE) immediate release tablet 5 mg, 5 mg, Enteral, Q4H PRN, Marlee Bradley MD, 5mg at 11/26/222045 pantoprazole-sodium bicarbonate 2mg/ml oral liquid 40 mg, 40 mg, Per Tube, Daily bef breakfast, Marlee Bradley MD, 40 mg at 11/27/22 0724 senna-docusate (SENOKOT-S) 8.6-50 MG tablet 2 tablet, 2 tablet, Enteral, Daily PRN, Nghia Pryor MD simethicone (MYLICON) chewable tablet 80 mg, 80 mg, Per Tube, BID PRN, Marlee Bradley MD, 80 mg at11/26/22 1246 tamsulosin (FLOMAX) 24 hr capsule 0.4 mg, 0.4 mg, Enteral, After Breakfast, Nghia Pryor MD, 0.4 mg at 11/26/22 0938 triamcinolone (KENALOG) 0.1 % ointment, , Apply externally, BID PRN, Nghia Pryor MD, Given at 11/20/222014 verapamil (CALAN) tablet 40 mg, 40 mg, Enteral, Q8H SENDY, Nghia Pryor MD, 40 mg at 11/27/22 0542 Warfarin Per Policy, , Does not apply, Daily, Nghia Pryor MD DATA Vitals: 11/26/22203611/26/22 2105 11/27/22 0542 11/27/22 0721 BP: (P) 103/65 103/65 104/67 107/67 Pulse: (P) 82 82 88 Resp: 20 Temp: 98.7 ??F (37.1 ??C) TempSrc: Oral SpO2: 94% Weight: Height: Weights (last 3 days) Date/Time Weight 11/25/22 1513 198 lb (89.8 kg) 11/24/22 0400 199 lb (90.3 kg) @ANTICOAGSUMMARY@ @FLOWDATE(2706:LAST)@ Intake/Output Summary (Last 24 hours) at 11/27/2022 0857 Last data filed at 11/27/2022 0839 Gross per 24 hour Intake 4136 ml Output 3000 ml Net 1136 ml PHYSICAL EXAM General appearance: awake, alert, cooperative, no distress HEENT: Normocephalic, No icterus, No oral lesions, Oral and nasal mucosa moist Neck: Supple, no lymphadenopathy Eyes: EOMI, Conjunctiva normal, No discharge Cardiovascular: Normal heart rate, Normal rhythm, No murmurs, No rubs, No gallops Respiratory: Normal breath sounds, No respiratory distress, No wheezing, No rhonchi, No rales, No chest tenderness. GI: Bowel sounds normal, Soft, No tenderness, No rebound or guarding, No masses. Abdomen: soft without mass, non-tender, with normal bowel sounds Extremities: no clubbing, cyanosis or edema, no calf tenderness Musculoskeletal:no swelling of joints.no redness Psychologic: Mood ok, no suicidal ideation. Skin: No rash. 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 LABS CBC with Differential: Lab Results Component Value Date WBC 7.4 11/27/2022 HGB 9.9 (L) 11/27/2022 HCT 31.8 (L) 11/27/2022 PLT 291 11/27/2022 MCV 95.2 11/27/2022 MCH 29.6 11/27/2022 MCHC 31.1 11/27/2022 RDW 15.4 (H) 11/27/2022 [ BMP: Lab Results Component Value Date NA 138 11/27/2022 K 3.8 11/27/2022 CL 101 11/27/2022 CO2 26 11/27/2022 BUN 13 11/27/2022 CREATININE 0.74 11/27/2022 GLUCOSE 124 (H) 11/27/2022 CALCIUM 9.3 11/27/2022 ANIONGAP 11 11/27/2022 MG/PHOS: No results found for: MG, PHOS CKMB: No components found for: CKMB;2 PT/INR: Lab Results Component Value Date INR 1.5 (H) 11/27/2022 BNP: No results found for: BNP Last 3 Troponin: No components found for: TROPONINI;3 U/A: No results found for: COLORU, CLARITYU, GLUCOSEU, BILIRUBINUR, KETONESU, SPECGRAV, BLOODU, PHUR, UROBILINOGEN, NITRITE, LEUKOCYTESUR, MUCUS, RBCUA, WBCUA CMP: Lab Results Component Value Date NA 138 11/27/2022 K 3.8 11/27/2022 CL 101 11/27/2022 CO2 26 11/27/2022 BUN 13 11/27/2022 CREATININE 0.74 11/27/2022 GLUCOSE 124 (H) 11/27/2022 CALCIUM 9.3 11/27/2022 ANIONGAP 11 11/27/2022 LFT's: No results found for: ALB, PROT Ionized Calcium: No components found for: IONCA ABG: No results found for: PHART, DRO5PEE, PO2ART, LXA5MYT, BEART, X6SOBFYH HgBA1c: No results found for: HGBA1C Lipid Panel: No results found for: CHOL, TRIG, HDL TSH: No results found for: TSH Lab Results Component Value Date GLUCOSE 124 (H) 11/27/2022 BUN 13 11/27/2022 CREATININE 0.74 11/27/2022 NA 138 11/27/2022 K 3.8 11/27/2022 CL 101 11/27/2022 CO2 26 11/27/2022 CALCIUM 9.3 11/27/2022 @RESU CBC: Recent Labs Lab Units 11/27/22226 WBC X(10)9/L BLOOD x10E9/L 7.4 HGB GM/DL BLOOD gm/dL 9.9* PLT CT X(10)9/L BLOOD x10E9/L 291 MCV FL BLOOD fl 95.2 BMP: Recent Labs Lab Units 11/27/22226 SODIUM MMOL/L BLOOD mmol/L 138 POTASSIUM MMOL/L BLOOD mmol/L 3.8 CHLORIDE mmol/L 101 CO2 mmol/L 26 BUN MG/DL BLOOD mg/dL 13 CREATININE mg/dL 0.74 GLUCOSE MG/DL BLOOD mg/dL 124* CALCIUM MG/DL BLOOD mg/dL 9.3 I reviewed the EKG tracing/Xray Recent Labs Lab Units 11/27/22226 SODIUM MMOL/L BLOOD mmol/L 138 POTASSIUM MMOL/L BLOOD mmol/L 3.8 CHLORIDE mmol/L 101 CO2 mmol/L 26 BUN MG/DL BLOOD mg/dL 13 CREATININE mg/dL 0.74 GLUCOSE MG/DL BLOOD mg/dL 124* CALCIUM MG/DL BLOOD mg/dL 9.3 ANION GAP BLOOD mmol/L 11 ASSESSMENT AND PLAN Principal Problem: Cerebrovascular accident Acute R MCA CVA Left hemiplegia /p TNK and MT and TICI2b revascularization on 10/19. Developed MCA syndrome s/p hemicrani. 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 - MRI brain w/wo done (11/10): cortical enhancement along the right frontal parietal and temporal regions 2/2 infarct progression but can't rule out cerebritis or infections.LP not concerning, however. -- glenis PEG fluid collection: Improved on abx - Urology replaced puentes (11/09-) TTE showed mobile aortic valve vegetation. IV abxs HTN Continue meds Migraine without aura Pian control GERD PPI Oral contraceptive use DVT Prophylaxis Obesity BMI 36 Nutrition consult Abn LFT Check hep screen Watch with statin D Pain management Today's pain score FEN. Nutrition consult for evaluation of nutritional status and the best diet. And for BMI evaluation and education regarding maintaining a healthy BMI Bladder management Voiding ok Bowel management . Titrate bowel medications for constipation/diarrhea. Skin. Nursing to address skin care throughout stay. Turn every 2 hrs Sleep. Monitor sleep-wake cycle. High Fall risk- Fall precautions GI Prophylaxis: DVT Prophylaxis: Full Resuscitation D/W patient , and attending physician about test results and treatment plan .No family in the room.Patient requiring monitoring of BP and HR while doing 3 hour intensive exercises to avoid fluctuations and hypotension . Aswell as monitoring of nutritional and fluid status , by weights, leg edema .Notified staff and patient to notify me of any change inconditions or new problems * Lyo Dawson MD - 11/26/2022 10:37 AM CDT HOSPITALIST PROGRESS NOTE Patient Name: Consuelo Darby : 1980 Medical Record: [id number] ATTENDING Yamileth Frias MD SUBJECTIVE 11/19 The patient is being seen for follow-up of Cerebrovascular accident. BP, BS , HR, labs, strength. .Chief Complaint CT head ok Headache much better Got upto chair without helmet =did ok Working on better helmet Consider spinal headache if recurs- d/w dr Villagran strength improving, able to do therapy ok. No chest pain, no SOB, no dizziness, no palpitations, no new neurologic symptoms. No cough, No nausea or vomiting, No abdominal pain. History also obtained from Nurse and staff about how the patient did overnight and during the day strength improving, able to do therapy ok. 11/20 Patient seen an examined Doing alright No new issues to report Vitals reviewed 11/21 Patient seen and examined earlier No new issues to report Vitals reviewed Resting comfortably 9/13 Patient seen and examined Doing alright at this time Resting comfortably Vitals reviewed 11/23 The patient was seen in the room this afternoon. The patient currently does not report any chest pain, shortness present nausea or vomiting No reported issues from the floor nurse. The most recent labs and vital signs were reviewed. 11/24: Patient seen and examined this morning. Patient complaining of bilateral hip pain. Have placed order for Flexeril and lidocaine patch. No acute events reported overnight. Blood work and vital signs remained stable. Continue current medical management. 11/25: Patient seen and examined this morning. Patient continues to complain of bilateral hip pain. Continue lidocaine patches. Have scheduled Flexeril 5 mg t.i.d.. Continue current medical management. 11/26: Patient seen and examined this morning. Patient continues to complain of hip pain. Follow up left hip x-ray. Follow up with PM&R for further recommendations. Continue Lovenox. Have discussed Coumadin dosing with pharmacy. Goal to have INR from 2-3. No acute events reported overnight. Continue current medical management. BRIEF HISTORY The patient is a 42 y.o. y/o female with history of HTN, GERD, presented tO ED with new left sided weakness and slurred speech Diagnosed with acute CVA s/p TNK and m1 occlusion S/P MT . c/b R iliac and common femoral artery occlusion s/p thrombectomy. Developed Fever: consulted ID, broaden abx, Cxs. - MRI brain w/wo done (11/10): cortical enhancement along the right frontal parietal and temporal regions 2/2 infarct progression but can't rule out cerebritis or infections.however LP neg. Also had glenis PEG fluid collection: Improved on abx - Urology replaced puentes (11/09-) Extubated, now on RA HOME Medications Prior to Admission medications Medication Sig Start Date End Date Taking? Authorizing Provider cetirizine (ZyrTEC) 10 MG tablet Take 1 tablet (10 mg total) by mouth in the morning. Yes Historical Provider, omeprazole (PriLOSEC) 20 MG capsule Take 1 capsule (20 mg total) by mouth in the morning. Yes Historical Provider, amitriptyline (ELAVIL) 50 MG tablet 2 tablets (100 mg total) nightly. Historical Provider, CURRENT Medications Current Facility-Administered Medications: acetaminophen (TYLENOL) tablet 500 mg, 500 mg, Per Tube, Q6H PRN, Nghia Pryor MD, 500 mg at 11/24/22 0945 bisacodyl (DULCOLAX) suppository 10 mg, 10 mg, Rectal, Daily PRN, Nghia Pryor MD cholecalciferol (VITAMIN D3) tablet 2,000 Units, 2,000 Units, Per Tube, Once a day, Nghia Pryor MD, 2,000 Units at 11/26/22 0933 cyclobenzaprine (FLEXERIL) tablet 5 mg, 5 mg, Oral, 3 times per day, Loy Dawson MD, 5 mg at 11/26/22 0933 enoxaparin (LOVENOX) syringe 100 mg, 100 mg, Subcutaneous, Q12H SENDY, Nghia Pryor MD, 100 mg at 11/26/22 0933 guaiFENesin (ROBITUSSIN) 100 MG/5ML liquid 10 mL, 10 mL, Enteral, BID PRN, Nghia Pryor MD hydrOXYzine (ATARAX) tablet 25 mg, 25 mg, Oral, Q6H PRN, Yamileth Frias MD, 25 mg at 11/25/22 1211 lidocaine (LIDOCARE) 4 % patch 1 patch, 1 patch, Transdermal, Once a day, Loy Dawson MD, 1 patch at 11/25/22 0907 loratadine (CLARITIN) tablet 10 mg, 10 mg, Enteral, Once a day, Nghia Pryor MD, 10 mg at 11/26/22 0940 metoprolol tartrate (LOPRESSOR) tablet 25 mg, 25 mg, Enteral, 2 times per day, Nghia Pryor MD, 25 mg at 11/26/22 0939 ondansetron ODT (ZOFRAN-ODT) disintegrating tablet 4 mg, 4 mg, Per Tube, Q6H PRN, Marlee Bradley MD, 4 mg at 11/25/22 1211 oxyCODONE (ROXICODONE) immediate release tablet 5 mg, 5 mg, Enteral, Q4H PRN, Marlee Bradley MD, 5mg at 11/26/22 0019 pantoprazole-sodium bicarbonate 2mg/ml oral liquid 40 mg, 40 mg, Per Tube, Daily bef breakfast, Marlee Bradley MD, 40 mg at 11/26/22 0609 senna-docusate (SENOKOT-S) 8.6-50 MG tablet 2 tablet, 2 tablet, Enteral, Daily PRN, Nghia Pryor MD simethicone (MYLICON) chewable tablet 80 mg, 80 mg, Per Tube, BID PRN, Marlee Bradley MD, 80 mg at11/24/22 0057 tamsulosin (FLOMAX) 24 hr capsule 0.4 mg, 0.4 mg, Enteral, After Breakfast, Nghia Pryor MD, 0.4 mg at 11/26/22 09 triamcinolone (KENALOG) 0.1 % ointment, , Apply externally, BID PRN, Nghia Pryor MD, Given at 11/20/222014 verapamil (CALAN) tablet 40 mg, 40 mg, Enteral, Q8H SENDY, Nghia Pryor MD, 40 mg at 11/26/22 0608 Warfarin Per Policy, , Does not apply, Daily, Nghia Pryor MD warfarin tablet 7.5 mg, 7.5 mg, Oral, Once, Loy Dawson MD DATA Vitals: 11/25/22 0709 11/25/22 1513 11/25/22 1918 11/26/22 0757 BP: 107/68 106/62 108/63 108/68 Pulse: 81 82 86 73 Resp: Temp: 98.2 ??F (36.8 ??C) 98.2 ??F (36.8 ??C) 97.8 ??F (36.6 ??C) TempSrc: Oral Oral Oral SpO2: 96% 96% 95% Weight: 198 lb (89.8 kg) Height: Weights (last 3 days) Date/Time Weight 11/25/22 1513 198 lb (89.8 kg) 11/24/22 0400 199 lb (90.3 kg) @ANTICOAGSUMMARY@ @FLOWDATE(2706:LAST)@ Intake/Output Summary (Last 24 hours) at 11/26/2022 1037 Last data filed at 11/26/2022 1036 Gross per 24 hour Intake 150 ml Output 1550 ml Net -1400 ml PHYSICAL EXAM General appearance: awake, alert, cooperative, no distress HEENT: Normocephalic, No icterus, No oral lesions, Oral and nasal mucosa moist Neck: Supple, no lymphadenopathy Eyes: EOMI, Conjunctiva normal, No discharge Cardiovascular: Normal heart rate, Normal rhythm, No murmurs, No rubs, No gallops Respiratory: Normal breath sounds, No respiratory distress, No wheezing, No rhonchi, No rales, No chest tenderness. GI: Bowel sounds normal, Soft, No tenderness, No rebound or guarding, No masses. Abdomen: soft without mass, non-tender, with normal bowel sounds Extremities: no clubbing, cyanosis or edema, no calf tenderness Musculoskeletal:no swelling of joints.no redness Psychologic: Mood ok, no suicidal ideation. Skin: No rash. 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 LABS CBC with Differential: No results found for: WBC, RBC, HGB, HEMOGLOBIN, HCT, HEMATOCRIT, PLT, MCV, MCH, MCHC, RDW, NEUTPERCENT, MONOPERCENT, LYMPHPERCENT, BASOPERCENT [ BMP: No results found for: NA, SODIUM, K, POTASSIUM, CL, CO2, BUN, CREATININE, LABCREA, EGFR, GLU, LABGLUC, GLUCOSE, GLUCOSEFL, CALCIUM, CALCIUMUR, ANIONGAP MG/PHOS: No results found for: MG, PHOS CKMB: No components found for: CKMB;2 PT/INR: Lab Results Component Value Date INR 1.6 (H) 11/26/2022 BNP: No results found for: BNP Last 3 Troponin: No components found for: TROPONINI;3 U/A: No results found for: COLORU, CLARITYU, GLUCOSEU, BILIRUBINUR, KETONESU, SPECGRAV, BLOODU, PHUR, UROBILINOGEN, NITRITE, LEUKOCYTESUR, MUCUS, RBCUA, WBCUA CMP: No results found for: NA, SODIUM, K, POTASSIUM, CL, CO2, BUN, CREATININE, LABCREA, GLU, LABGLUC, GLUCOSE, PROT, CALCIUM, ALBUMIN, BILITOT, ALKALINEPHO, ALT, AST, ANIONGAP, EGFR LFT's: No results found for: ALB, PROT Ionized Calcium: No components found for: IONCA ABG: No results found for: PHART, HTC6RRH, PO2ART, VGV0GAB, BEART, [id number] HgBA1c: No results found for: HGBA1C Lipid Panel: No results found for: CHOL, TRIG, HDL TSH: No results found for: TSH Lab Results Component Value Date GLUCOSE 100 11/23/2022 BUN 15 11/23/2022 CREATININE 0.63 11/23/2022 NA 141 11/23/2022 K 3.8 11/23/2022 CL 106 11/23/2022 CO2 24 11/23/2022 CALCIUM 9.4 11/23/2022 @RESU CBC: Recent Labs Lab Units 11/23/22 0358 WBC X(10)9/L BLOOD x10E9/L 7.0 HGB GM/DL BLOOD gm/dL 10.4* PLT CT X(10)9/L BLOOD x10E9/L 439* MCV FL BLOOD fl 98.6* BMP: Recent Labs Lab Units 11/23/22 0358 SODIUM MMOL/L BLOOD mmol/L 141 POTASSIUM MMOL/L BLOOD mmol/L 3.8 CHLORIDE mmol/L 106 CO2 mmol/L 24 BUN MG/DL BLOOD mg/dL 15 CREATININE mg/dL 0.63 GLUCOSE MG/DL BLOOD mg/dL 100 CALCIUM MG/DL BLOOD mg/dL 9.4 I reviewed the EKG tracing/Xray Recent Labs Lab Units 11/23/22 0358 SODIUM MMOL/L BLOOD mmol/L 141 POTASSIUM MMOL/L BLOOD mmol/L 3.8 CHLORIDE mmol/L 106 CO2 mmol/L 24 BUN MG/DL BLOOD mg/dL 15 CREATININE mg/dL 0.63 GLUCOSE MG/DL BLOOD mg/dL 100 CALCIUM MG/DL BLOOD mg/dL 9.4 ANION GAP BLOOD mmol/L 11 ASSESSMENT AND PLAN Principal Problem: Cerebrovascular accident Acute R MCA CVA Left hemiplegia /p TNK and MT and TICI2b revascularization on 10/19. Developed MCA syndrome s/p hemicrani. 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 - MRI brain w/wo done (11/10): cortical enhancement along the right frontal parietal and temporal regions 2/2 infarct progression but can't rule out cerebritis or infections.LP not concerning, however. -- glenis PEG fluid collection: Improved on abx - Urology replaced puentes (11/09-) TTE showed mobile aortic valve vegetation. IV abxs HTN Continue meds Migraine without aura Pian control GERD PPI Oral contraceptive use DVT Prophylaxis Obesity BMI 36 Nutrition consult Abn LFT Check hep screen Watch with statin D Pain management Today's pain score FEN. Nutrition consult for evaluation of nutritional status and the best diet. And for BMI evaluation and education regarding maintaining a healthy BMI Bladder management Voiding ok Bowel management . Titrate bowel medications for constipation/diarrhea. Skin. Nursing to address skin care throughout stay. Turn every 2 hrs Sleep. Monitor sleep-wake cycle. High Fall risk- Fall precautions GI Prophylaxis: DVT Prophylaxis: Full Resuscitation D/W patient , and attending physician about test results and treatment plan .No family in the room.Patient requiring monitoring of BP and HR while doing 3 hour intensive exercises to avoid fluctuations and hypotension . Aswell as monitoring of nutritional and fluid status , by weights, leg edema .Notified staff and patient to notify me of any change inconditions or new problems * Loy Dawson MD - 11/25/2022 11:18 AM CDT HOSPITALIST PROGRESS NOTE Patient Name: Consuelo Darby : 1980 Medical Record: [id number] ATTENDING Yamileth Frias MD SUBJECTIVE 11/19 The patient is being seen for follow-up of Cerebrovascular accident. BP, BS , HR, labs, strength. .Chief Complaint CT head ok Headache much better Got upto chair without helmet =did ok Working on better helmet Consider spinal headache if recurs- d/w dr Villagran strength improving, able to do therapy ok. No chest pain, no SOB, no dizziness, no palpitations, no new neurologic symptoms. No cough, No nausea or vomiting, No abdominal pain. History also obtained from Nurse and staff about how the patient did overnight and during the day strength improving, able to do therapy ok. 11/20 Patient seen an examined Doing alright No new issues to report Vitals reviewed 11/21 Patient seen and examined earlier No new issues to report Vitals reviewed Resting comfortably 11/22 Patient seen and examined Doing alright at this time Resting comfortably Vitals reviewed 11/23 The patient was seen in the room this afternoon. The patient currently does not report any chest pain, shortness present nausea or vomiting No reported issues from the floor nurse. The most recent labs and vital signs were reviewed. 11/24: Patient seen and examined this morning. Patient complaining of bilateral hip pain. Have placed order for Flexeril and lidocaine patch. No acute events reported overnight. Blood work and vital signs remained stable. Continue current medical management. 11/25: Patient seen and examined this morning. Patient continues to complain of bilateral hip pain. Continue lidocaine patches. Have scheduled Flexeril 5 mg t.i.d.. Continue current medical management. BRIEF HISTORY The patient is a 42 y.o. y/o female with history of HTN, GERD, presented tO ED with new left sided weakness and slurred speech Diagnosed with acute CVA s/p TNK and m1 occlusion S/P MT . c/b R iliac and common femoral artery occlusion s/p thrombectomy. Developed Fever: consulted ID, broaden abx, Cxs. - MRI brain w/wo done (11/10): cortical enhancement along the right frontal parietal and temporal regions 2/2 infarct progression but can't rule out cerebritis or infections.however LP neg. Also had glenis PEG fluid collection: Improved on abx - Urology replaced puentes (11/09-) Extubated, now on [facility] HOME Medications Prior to Admission medications Medication Sig Start Date End Date Taking? Authorizing Provider cetirizine (ZyrTEC) 10 MG tablet Take 1 tablet (10 mg total) by mouth in the morning. Yes Historical Provider, omeprazole (PriLOSEC) 20 MG capsule Take 1 capsule (20 mg total) by mouth in the morning. Yes Historical Provider, amitriptyline (ELAVIL) 50 MG tablet 2 tablets (100 mg total) nightly. Historical Provider, CURRENT Medications Current Facility-Administered Medications: acetaminophen (TYLENOL) tablet 500 mg, 500 mg, Per Tube, Q6H PRN, Nghia Pryor MD, 500 mg at 11/24/22 0945 bisacodyl (DULCOLAX) suppository 10 mg, 10 mg, Rectal, Daily PRN, Nghia Pryor MD cholecalciferol (VITAMIN D3) tablet 2,000 Units, 2,000 Units, Per Tube, Once a day, Nghia Pryor MD, 2,000 Units at 11/25/22 09 cyclobenzaprine (FLEXERIL) tablet 5 mg, 5 mg, Oral, TID PRN, Loy Dawson MD enoxaparin (LOVENOX) syringe 100 mg, 100 mg, Subcutaneous, Q12H SENDY, Nghia Pryor MD, 100 mg at 11/25/22905 guaiFENesin (ROBITUSSIN) 100 MG/5ML liquid 10 mL, 10 mL, Enteral, BID PRN, Nghia Pryor MD hydrOXYzine (ATARAX) tablet 25 mg, 25 mg, Oral, Q6H PRN, Yamileth Frias MD, 25 mg at 11/24/222122 lidocaine (LIDOCARE) 4 % patch 1 patch, 1 patch, Transdermal, Once a day, Loy Dawson MD, 1 patch at 11/25/22906 loratadine (CLARITIN) tablet 10 mg, 10 mg, Enteral, Once a day, Nghia Pryor MD, 10 mg at 11/25/22906 metoprolol tartrate (LOPRESSOR) tablet 25 mg, 25 mg, Enteral, 2 times per day, Nghia Pryor MD, 25 mg at 11/25/22906 ondansetron ODT (ZOFRAN-ODT) disintegrating tablet 4 mg, 4 mg, Per Tube, Q6H PRN, Marlee Bradley MD, 4 mg at 11/24/222135 oxyCODONE (ROXICODONE) immediate release tablet 5 mg, 5 mg, Enteral, Q4H PRN, Marlee Bradley MD, 5mg at 11/24/22 05 pantoprazole-sodium bicarbonate 2mg/ml oral liquid 40 mg, 40 mg, Per Tube, Daily bef breakfast, Marlee Bradley MD, 40 mg at 11/25/22 0600 senna-docusate (SENOKOT-S) 8.6-50 MG tablet 2 tablet, 2 tablet, Enteral, Daily PRN, Nghia Pryor MD simethicone (MYLICON) chewable tablet 80 mg, 80 mg, Per Tube, BID PRN, Marlee Bradley MD, 80 mg at11/24/22 0057 tamsulosin (FLOMAX) 24 hr capsule 0.4 mg, 0.4 mg, Enteral, After Breakfast, Nghia Pryor MD, 0.4 mg at 11/25/22 09 triamcinolone (KENALOG) 0.1 % ointment, , Apply externally, BID PRN, Nghia Pryor MD, Given at 11/20/222014 verapamil (CALAN) tablet 40 mg, 40 mg, Enteral, Q8H SENDY, Nghia Pryor MD, 40 mg at 11/24/222125 Warfarin Per Policy, , Does not apply, Daily, Nghia Pryor MD DATA Vitals: 11/24/22212011/24/22212511/25/22 0600 11/25/22 0709 BP: 113/71 113/71 99/63 107/68 Pulse: 88 74 81 Resp: 18 Temp: 98.2 ??F (36.8 ??C) TempSrc: Oral SpO2: 96% Weight: Height: Weights (last 3 days) Date/Time Weight 11/24/22 0400 199 lb (90.3 kg) @ANTICOAGSUMMARY@ @FLOWDATE(2706:LAST)@ Intake/Output Summary (Last 24 hours) at 11/25/2022 1118 Last data filed at 11/25/2022 0940 Gross per 24 hour Intake 2043 ml Output 950 ml Net 1093 ml PHYSICAL EXAM General appearance: awake, alert, cooperative, no distress HEENT: Normocephalic, No icterus, No oral lesions, Oral and nasal mucosa moist Neck: Supple, no lymphadenopathy Eyes: EOMI, Conjunctiva normal, No discharge Cardiovascular: Normal heart rate, Normal rhythm, No murmurs, No rubs, No gallops Respiratory: Normal breath sounds, No respiratory distress, No wheezing, No rhonchi, No rales, No chest tenderness. GI: Bowel sounds normal, Soft, No tenderness, No rebound or guarding, No masses. Abdomen: soft without mass, non-tender, with normal bowel sounds Extremities: no clubbing, cyanosis or edema, no calf tenderness Musculoskeletal:no swelling of joints.no redness Psychologic: Mood ok, no suicidal ideation. Skin: No rash. 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 LABS CBC with Differential: Lab Results Component Value Date WBC 7.0 11/23/2022 HGB 10.4 (L) 11/23/2022 HCT 35.0 (L) 11/23/2022 PLT 439 (H) 11/23/2022 MCV 98.6 (H) 11/23/2022 MCH 29.3 11/23/2022 MCHC 29.7 (L) 11/23/2022 RDW 15.6 (H) 11/23/2022 [ BMP: Lab Results Component Value Date NA 141 11/23/2022 K 3.8 11/23/2022 CL 106 11/23/2022 CO2 24 11/23/2022 BUN 15 11/23/2022 CREATININE 0.63 11/23/2022 GLUCOSE 100 11/23/2022 CALCIUM 9.4 11/23/2022 ANIONGAP 11 11/23/2022 MG/PHOS: No results found for: MG, PHOS CKMB: No components found for: CKMB;2 PT/INR: Lab Results Component Value Date INR 1.7 (H) 11/25/2022 BNP: No results found for: BNP Last 3 Troponin: No components found for: TROPONINI;3 U/A: No results found for: COLORU, CLARITYU, GLUCOSEU, BILIRUBINUR, KETONESU, SPECGRAV, BLOODU, PHUR, UROBILINOGEN, NITRITE, LEUKOCYTESUR, MUCUS, RBCUA, WBCUA CMP: Lab Results Component Value Date NA 141 11/23/2022 K 3.8 11/23/2022 CL 106 11/23/2022 CO2 24 11/23/2022 BUN 15 11/23/2022 CREATININE 0.63 11/23/2022 GLUCOSE 100 11/23/2022 CALCIUM 9.4 11/23/2022 ANIONGAP 11 11/23/2022 LFT's: No results found for: ALB, PROT Ionized Calcium: No components found for: IONCA ABG: No results found for: PHART, CLI8BTW, PO2ART, RMM5FDO, BEART, J3KVVLBD HgBA1c: No results found for: HGBA1C Lipid Panel: No results found for: CHOL, TRIG, HDL TSH: No results found for: TSH Lab Results Component Value Date GLUCOSE 100 11/23/2022 BUN 15 11/23/2022 CREATININE 0.63 11/23/2022 NA 141 11/23/2022 K 3.8 11/23/2022 CL 106 11/23/2022 CO2 24 11/23/2022 CALCIUM 9.4 11/23/2022 @RESU CBC: Recent Labs Lab Units 11/23/22 0358 WBC X(10)9/L BLOOD x10E9/L 7.0 HGB GM/DL BLOOD gm/dL 10.4* PLT CT X(10)9/L BLOOD x10E9/L 439* MCV FL BLOOD fl 98.6* BMP: Recent Labs Lab Units 11/23/22 0358 SODIUM MMOL/L BLOOD mmol/L 141 POTASSIUM MMOL/L BLOOD mmol/L 3.8 CHLORIDE mmol/L 106 CO2 mmol/L 24 BUN MG/DL BLOOD mg/dL 15 CREATININE mg/dL 0.63 GLUCOSE MG/DL BLOOD mg/dL 100 CALCIUM MG/DL BLOOD mg/dL 9.4 I reviewed the EKG tracing/Xray Recent Labs Lab Units 11/23/22 0358 SODIUM MMOL/L BLOOD mmol/L 141 POTASSIUM MMOL/L BLOOD mmol/L 3.8 CHLORIDE mmol/L 106 CO2 mmol/L 24 BUN MG/DL BLOOD mg/dL 15 CREATININE mg/dL 0.63 GLUCOSE MG/DL BLOOD mg/dL 100 CALCIUM MG/DL BLOOD mg/dL 9.4 ANION GAP BLOOD mmol/L 11 ASSESSMENT AND PLAN Principal Problem: Cerebrovascular accident Acute R MCA CVA Left hemiplegia /p TNK and MT and TICI2b revascularization on 10/19. Developed MCA syndrome s/p hemicrani. 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 - MRI brain w/wo done (11/10): cortical enhancement along the right frontal parietal and temporal regions 2/2 infarct progression but can't rule out cerebritis or infections.LP not concerning, however. -- glenis PEG fluid collection: Improved on abx - Urology replaced puentes (11/09-) TTE showed mobile aortic valve vegetation. IV abxs HTN Continue meds Migraine without aura Pian control GERD PPI Oral contraceptive use DVT Prophylaxis Obesity BMI 36 Nutrition consult Abn LFT Check hep screen Watch with statin D Pain management Today's pain score FEN. Nutrition consult for evaluation of nutritional status and the best diet. And for BMI evaluation and education regarding maintaining a healthy BMI Bladder management Voiding ok Bowel management . Titrate bowel medications for constipation/diarrhea. Skin. Nursing to address skin care throughout stay. Turn every 2 hrs Sleep. Monitor sleep-wake cycle. High Fall risk- Fall precautions GI Prophylaxis: DVT Prophylaxis: Full Resuscitation D/W patient , and attending physician about test results and treatment plan .No family in the room.Patient requiring monitoring of BP and HR while doing 3 hour intensive exercises to avoid fluctuations and hypotension . Aswell as monitoring of nutritional and fluid status , by weights, leg edema .Notified staff and patient to notify me of any change inconditions or new problems * Ronda Monreal, TIO - 11/24/2022 3:04 PM CDT CLINICAL NUTRITION REASSESSMENT: Pt seen for follow up. Interviewed Pt at bedside. She reports feelings of fullness and bloating continue. This can cause her abdominal pain. Pt reports RN turned the TF off this morning for a while for this reason. Jevity 1.5 @ 50 ml/hr goal rate currently infusing; current order meets 100% of estimated kcal and protein needs (1800 kcal, 76 gm protein). Discussed TF with Pt and answered questions. Bowel sounds present, abdomen soft per linen folder. Pt reports small BM today. Labs reviewed. No new medications since last RD note. Recommendation: Recommendation: Continue TF as ordered. If lower fiber formula or bolus feeding preferred, considerone of the following: If lower fiber formula preferred, consider the following regimen: Osmolite @ 60 ml/hour goal rate - provides 1728 kcal, 80 gm protein, 1180 ml free water (meets 100% of estimated needs); water flush per MD. If bolus regimen preferred (when medically appropriate per MD), consider Jevity 1.5, 240 ml bolus, five times daily (1800 kcal 76 gm protein) with water flush per MD. Patient Active Problem List Diagnosis Cerebrovascular accident Hypertension Weight: Admit Weight: 198 lb (89.8 kg) (11/17/22 1720) Weight Method: Bed scale (11/17/22 172) Latest Weight: 199 lb (90.3 kg) (11/24/22 0400) Weight Method: Bed scale (11/24/22 0400) Weight Comment: stable Dietary Orders (From admission, onward) Start Ordered 11/17/221745 NPO Diet, Tube Feeding No Tray Strict NPO; Jevity 1.5; Tube Feeding Continuous rate (mL/hr): 50; Tube Feeding water flush (mL): 150; Water Flush type: Water; Water flush frequency: Every 4 hours Diet effective now End/Expires: Until Specified Question Answer Comment NPO Status: Strict NPO Tube Feeding Formula: Jevity 1.5 Tube Feeding Continuous rate (mL/hr): 50 Tube Feeding water flush (mL): 150 Water Flush type: Water Water flush frequency: Every [address] order in third green party system. Done 11/17/22 174 Food Allergies: none Food/Nutrient Intake: P.O. (mL): 0 mL Supplement Consumed (mL): 0 mL Percent Meal Eaten (%): 0 of Last Documented Meal Difficulty Chewing or Swallowing: Yes (Comment) Nutrition Related Concerns: Nutrition Related Concerns Nutrition Related Concerns: Swallowing, Abdominal pain (dysphagia s/p PEG) NutritionSupport: Nutrition Support: Yes Select Nutrition Support: Enteral Enteral Route: PEG KCAL/24 Hours: 1800 Protein (gm/24 hours): 76 Water in Tube Feeding (ml/24 hours): 912 Flush Water (ml/24 hours): 900 % KCAL Needs: 100 % Protein Needs: 100 % Fluid Needs: 100 % RDI: 100 New Medications: no new Relevant Labs: Recent Labs Lab Units 11/23/22 0358 SODIUM MMOL/L BLOOD mmol/L 141 POTASSIUM MMOL/L BLOOD mmol/L 3.8 CHLORIDE mmol/L 106 CO2 mmol/L 24 BUN MG/DL BLOOD mg/dL 15 CREATININE mg/dL 0.63 GLUCOSE MG/DL BLOOD mg/dL 100 CALCIUM MG/DL BLOOD mg/dL 9.4 ANION GAP BLOOD mmol/L 11 Skin: PEG-J (double port) [id number] Status: Other (Comment) (open to air) Peripheral IV Left Antecubital-Dressing Status: Clean, Dry, Intact Last BM: Bowel Occurrence: Continent (11/24/22 1245) Care Plans: Plan of Care - Nutrition Care Plans 1 Author: Ronda Monreal RD Service: -- Author Type: Registered Dietitian Filed: 11/24/2022 3:04 PM Date of Service: 11/24/2022 3:04 PM Status: Signed Legal Coordinator: Ronda Monreal RD (Registered Dietitian) Problem: Inadequate Oral Intake Description: Oral food/beverage intake that is less than established reference standards or recommendations based on physiological needs. Related to: dysphagia As evidenced by: need for TF to meet nutritional needs. Goal: Maintain Nutritional Status Outcome: Progressing Flowsheets (Taken 11/20/[address]) Enteral and Parenteral Nutrition: Enteral nutrition Education Needs: Enteral feeding Expect good compliance. Monitor: Tube feeding rate and tolerance Weight trends Labs Medications Skin integrity Continue to follow every [address]/[facility] [employer] [id number] 11/24/22 3:04 PM CDT * JESSY Zuniga - 11/24/2022 2:39 PM CDT Outside Plant Field Engineer Plan Patient Name: Consuelo Darby Date: 11/24/22 Time: 2:39 PM CDT Attendees: Hi, parents Caregiver Name: Family Anticipated length of rehab stay: 20 days Expected level of supervision at time of discharge: TBD Expected level of physical care/assistance at time of discharge:TBD with pt's progress Caregiver and Level of supervision/care able to provide: (list below) Pt's family staing they will assist as pt need. Pt works, parents are retired. Patient and family goals:( list below) We want to see how she will progress Barriers to safe discharge and Solutions Discussed: (list below) Max assist-pt to continue therapy at IP level. Recommendation for Family Training Sessions, Dates and Times Scheduled: More FT recommended. ROBERT BRADY SW 11/24/22 2:39 PM CDT * Yamileth Frias MD - 11/24/2022 1:42 PM CDT PM&R PROGRESS NOTE This is Face to Face Visit note Consuelo Darby is a 42 y.o. female patient. No acute events over night, gains with therapy Good progress with therapy . Continue to benefit from intense therapy REVIEW OF FUNCTIONAL STATUS SM Functional Status PT Data (since 11/21/2022) Value Time User Bed Mobility Comment Bed set to auto-firm : Supine to sit with max A for trunk and LLE; cues for technique, L attention, safety 11/23/2022 2:48 PM Tia Felix, PT Gait Analysis 3' x1, 8' x1, 10' x1 in // bars with max A x1 for balance and LLE management; L UE sling for glenohumeral support, francisco wrap for L DF assist; 2nd person for close w/c follow; total assist to advance and stabilize/block L LE - no active movement observed; hemiparetic gait pattern noted; demonstrates decreased trunk and head control noted at times (improved with cues), decreased wt shift R, R gaze, L neglect 11/23/2022 2:48 PM Tia Felix, PT Functional Status OT Data (since 11/21/2022) None Patient Active Problem List Diagnosis Cerebrovascular accident Hypertension Past Medical History: Diagnosis Date Gastroesophageal reflux disease Hypertension Migraine Current Facility-Administered Medications: acetaminophen (TYLENOL) tablet 500 mg, 500 mg, Per Tube, Q6H PRN, Nghia Pryor MD, 500 mg at 11/24/22 0945 bisacodyl (DULCOLAX) suppository 10 mg, 10 mg, Rectal, Daily PRN, Nghia Pryor MD cholecalciferol (VITAMIN D3) tablet 2,000 Units, 2,000 Units, Per Tube, Once a day, Nghia Pryor MD, 2,000 Units at 11/24/22944 cyclobenzaprine (FLEXERIL) tablet 5 mg, 5 mg, Oral, TID PRN, Loy Dawson MD enoxaparin (LOVENOX) syringe 100 mg, 100 mg, Subcutaneous, Q12H SENDY, Nghia Pryor MD, 100 mg at 11/24/22 0945 guaiFENesin (ROBITUSSIN) 100 MG/5ML liquid 10 mL, 10 mL, Enteral, BID PRN, Nghia Pryor MD hydrOXYzine (ATARAX) tablet 25 mg, 25 mg, Oral, Q6H PRN, Yamileth Frias MD, 25 mg at 11/24/22 0534 [START ON 11/25/2022] lidocaine (LIDOCARE) 4 % patch 1 patch, 1 patch, Transdermal, Once a day, Loy Dawson MD loratadine (CLARITIN) tablet 10 mg, 10 mg, Enteral, Once a day, Nghia Pryor MD, 10 mg at 11/24/22944 metoprolol tartrate (LOPRESSOR) tablet 25 mg, 25 mg, Enteral, 2 times per day, Nghia Pryor MD, 25 mg at 11/24/2245 ondansetron ODT (ZOFRAN-ODT) disintegrating tablet 4 mg, 4 mg, Per Tube, Q6H PRN, Marlee Bradley MD, 4 mg at 11/24/2234 oxyCODONE (ROXICODONE) immediate release tablet 5 mg, 5 mg, Enteral, Q4H PRN, Marlee Bradley MD, 5mg at 11/24/22534 pantoprazole-sodium bicarbonate 2mg/ml oral liquid 40 mg, 40 mg, Per Tube, Daily bef breakfast, Marlee Bradley MD, 40 mg at 11/24/22 05 senna-docusate (SENOKOT-S) 8.6-50 MG tablet 2 tablet, 2 tablet, Enteral, Daily PRN, Nghia Pryor MD simethicone (MYLICON) chewable tablet 80 mg, 80 mg, Per Tube, BID PRN, Marlee Bradley MD, 80 mg at11/24/22 0057 tamsulosin (FLOMAX) 24 hr capsule 0.4 mg, 0.4 mg, Enteral, After Breakfast, Nghia Pryor MD, 0.4 mg at 11/24/22 0945 triamcinolone (KENALOG) 0.1 % ointment, , Apply externally, BID PRN, Nghia Pryor MD, Given at 11/20/222014 verapamil (CALAN) tablet 40 mg, 40 mg, Enteral, Q8H SENDY, Nghia Pryor MD, 40 mg at 11/24/22 0535 Warfarin Per Policy, , Does not apply, Daily, Nghia Pryor MD warfarin tablet 7.5 mg, 7.5 mg, Oral, Daily, Nghia Pryor MD, 7.5 mg at 11/23/22 1736 Review of Systems: Review of Systems Constitutional: Negative for appetite change. HENT: Negative for congestion. Respiratory: Negative for shortness of breath. Cardiovascular: Positive for leg swelling. Genitourinary: Negative for flank pain. Musculoskeletal: Negative for arthralgias and joint swelling. Neurological: Negative for headaches. Psychiatric/Behavioral: The patient is nervous/anxious. Physical Exam Vitals: 11/24/22 0726 BP: 110/70 Pulse: 81 Resp: 17 Temp: 97.2 ??F (36.2 ??C) SpO2: 94% Physical Exam Constitutional: General: She is not in acute distress. HENT: Head: Atraumatic. Eyes: Conjunctiva/sclera: Conjunctivae normal. Cardiovascular: Rate and Rhythm: Normal rate. Pulmonary: Effort: Pulmonary effort is normal. Abdominal: General: There is no distension. Skin: Findings: No erythema. Neurological: Coordination: Coordination abnormal. Neurologic Exam Lab Data Reviewed current lab results available to me today. Lab Results Component Value Date WBC 7.0 11/23/2022 HGB 10.4 (L) 11/23/2022 HCT 35.0 (L) 11/23/2022 MCV 98.6 (H) 11/23/2022 PLT 439 (H) 11/23/2022 Lab Results Component Value Date GLUCOSE 100 11/23/2022 CALCIUM 9.4 11/23/2022 NA 141 11/23/2022 K 3.8 11/23/2022 CO2 24 11/23/2022 CL 106 11/23/2022 BUN 15 11/23/2022 CREATININE 0.63 11/23/2022 ANIONGAP 11 11/23/2022 Imaging Reviewed current imaging results available to me today. XR abdomen 1 vws Result Date: 11/19/2022 NARRATIVE: Procedure: XR ABDOMEN KUB Exam Date: 11/19/2022 9:38 AM Location: [facility] Indication: abdominal fullness, reflux. Patient on peg tube feeding FINDINGS/IMPRESSION: Air is seen throughout the colonic structures. No dilated bowel loops are identified. There is no evidence tosuggest obstruction. There is no gross free intraperitoneal air. There does appear to be a gastrostomy tube superimposing the stomach. > Interpreting Provider: Rebel Hernandez MD on 11/19/2022 9:[address] head WO contrast Result Date: 11/19/2022 NARRATIVE: Procedure: CT HEAD WO CONTRAST Exam Date: 11/19/2022 9:31 AM Location: [facility] CT head without IV contrast INDICATION: worsening pain TECHNIQUE: CT examination of the head was performed from the base of the skull through the vertex using multiple axial images without IV contrast. FINDINGS: No old studies are available for comparison purposes. VIZ AI was utilized. Patient is status post right-sided craniectomy. There is extensive encephalomalacia involving the right frontal lobe with with some minimal involvement of the temporal and parietal lobe. There is no acute infarct. There is no mass. There is no hemorrhage. There are no extra-axial fluid collections. There is no midline shift. IMPRESSION: IMPRESSION: Right frontal craniectomy with extensive encephalomalacia involving the right frontal lobe as well as some involvement of the parietal and temporal lobes. > Interpreting Provider: Rebel Hernandez MD on 11/19/2022 9:36 AM Assessment & Plan: Consuelo Darby is a 42 y.o. female patient with Cerebrovascular accident functional impairment for rehab Cerebrovascular accident PT, OT for gait training and ADL training, Nursing for bowel and bladder care. Speech therapy for swallow evaluation and cognitive evaluation. Acute R MCA CVA Left dense hemiplegia LUE / LLE : 0/5 Left face droop Left neglect s/p TNK and MT and TICI2b revascularization on 10/19. cerebral edema and midline shift s/p hemicraniectomy 10/20/22 Helmet Incision care R iliac and common femoral artery occlusion 10/30: R common femoral thrombectomy and patch angioplasty On Warfarin # Dysphagia: Ice chips PRN Tube feeds Dysarthria NPO -- glenis PEG fluid collection: TTE showed mobile aortic valve vegetation. S /P IV abxs HTN Continue metoprolol , verapamil # headaches: On Tylenol and Oxy PRN Pian control # Neurogenic bladder: Failed Voiding trials on 11/22 puentes placed back on 11/23 Urology consult Skin/Wounds: - Skin integrity and Pressure ulcer prevention: frequent repositioning and adequate pressure relief. Maintain clean, dry skin. If needed, q2 hour turns when in bed and regular skin checks, application of protective barrier cream, toileting schedule. Wound RN consult Bowel & Bladder - monitor bowel movement - adjust scheduled and PRN bowel regimen as needed - monitor for adequate urinary output - should suspicion for urinary retention arise, PVR of random bladder scan will be performed for further assessment Continue current medical management. RECOMMENDATIONS At the current time, this inpatient hospital rehabilitation stay is medically necessary to achieve important health and functional goals. The patient requires frequent physician visits, 24-hour rehabilitation nursing, and a coordinated intensive rehabilitation program as described above to address complex medical, nursing, and rehabilitation needs. Continue inpatient comprehensive interdisciplinary rehabilitation to address strengthening, mobility skills, self care, cognitive functioning, speech, communication and swallowing needs. The patient continues to require the interdisciplinary team approach and 24 hour monitoring. DIET: Dietary Orders (From admission, onward) Start Ordered 11/17/221745 NPO Diet, Tube Feeding No Tray Strict NPO; Jevity 1.5; Tube Feeding Continuous rate (mL/hr): 50; Tube Feeding water flush (mL): 150; Water Flush type: Water; Water flush frequency: Every 4 hours Diet effective now End/Expires: Until Specified Question Answer Comment NPO Status: Strict NPO Tube Feeding Formula: Jevity 1.5 Tube Feeding Continuous rate (mL/hr): 50 Tube Feeding water flush (mL): 150 Water Flush type: Water Water flush frequency: Every [address] order in third green party system. Done 11/17/22 1749 Patient Active Problem List Diagnosis Cerebrovascular accident Hypertension CHIN: YAMILETH FRIAS MD * Loy Dawson MD - 11/24/2022 1:06 PM CDT HOSPITALIST PROGRESS NOTE Patient Name: Consuelo Darby : 1980 Medical Record: [id number] ATTENDING Yamileth Frias MD SUBJECTIVE 11/19 The patient is being seen for follow-up of Cerebrovascular accident. BP, BS , HR, labs, strength. .Chief Complaint CT head ok Headache much better Got upto chair without helmet =did ok Working on better helmet Consider spinal headache if recurs- d/w dr Villagran strength improving, able to do therapy ok. No chest pain, no SOB, no dizziness, no palpitations, no new neurologic symptoms. No cough, No nausea or vomiting, No abdominal pain. History also obtained from Nurse and staff about how the patient did overnight and during the day strength improving, able to do therapy ok. 11/20 Patient seen an examined Doing alright No new issues to report Vitals reviewed 11/21 Patient seen and examined earlier No new issues to report Vitals reviewed Resting comfortably 11/22 Patient seen and examined Doing alright at this time Resting comfortably Vitals reviewed 11/23 The patient was seen in the room this afternoon. The patient currently does not report any chest pain, shortness present nausea or vomiting No reported issues from the floor nurse. The most recent labs and vital signs were reviewed. 11/24: Patient seen and examined this morning. Patient complaining of bilateral hip pain. Have placed order for Flexeril and lidocaine patch. No acute events reported overnight. Blood work and vital signs remained stable. Continue current medical management. BRIEF HISTORY The patient is a 42 y.o. y/o female with history of HTN, GERD, presented tO ED with new left sided weakness and slurred speech Diagnosed with acute CVA s/p TNK and m1 occlusion S/P MT . c/b R iliac and common femoral artery occlusion s/p thrombectomy. Developed Fever: consulted ID, broaden abx, Cxs. - MRI brain w/wo done (11/10): cortical enhancement along the right frontal parietal and temporal regions 2/2 infarct progression but can't rule out cerebritis or infections.however LP neg. Also had glenis PEG fluid collection: Improved on abx - Urology replaced puentes (11/09-) Extubated, now on RA HOME Medications Prior to Admission medications Medication Sig Start Date End Date Taking? Authorizing Provider cetirizine (ZyrTEC) 10 MG tablet Take 1 tablet (10 mg total) by mouth in the morning. Yes Historical Provider, omeprazole (PriLOSEC) 20 MG capsule Take 1 capsule (20 mg total) by mouth in the morning. Yes Historical Provider, amitriptyline (ELAVIL) 50 MG tablet 2 tablets (100 mg total) nightly. Historical Provider, CURRENT Medications Current Facility-Administered Medications: acetaminophen (TYLENOL) tablet 500 mg, 500 mg, Per Tube, Q6H PRN, Nghia Pryor MD, 500 mg at 11/24/22 0945 bisacodyl (DULCOLAX) suppository 10 mg, 10 mg, Rectal, Daily PRN, Nghia Pryor MD cholecalciferol (VITAMIN D3) tablet 2,000 Units, 2,000 Units, Per Tube, Once a day, Nghia Pryor MD, 2,000 Units at 11/24/22 0945 cyclobenzaprine (FLEXERIL) tablet 5 mg, 5 mg, Oral, TID PRN, Loy Dawson MD enoxaparin (LOVENOX) syringe 100 mg, 100 mg, Subcutaneous, Q12H SENDY, Nghia Pryor MD, 100 mg at 11/24/22 0945 guaiFENesin (ROBITUSSIN) 100 MG/5ML liquid 10 mL, 10 mL, Enteral, BID PRN, Nghia Pryor MD hydrOXYzine (ATARAX) tablet 25 mg, 25 mg, Oral, Q6H PRN, Yamileth Frias MD, 25 mg at 11/24/22 0534 [START ON 11/25/2022] lidocaine (LIDOCARE) 4 % patch 1 patch, 1 patch, Transdermal, Once a day, Loy Dawson MD loratadine (CLARITIN) tablet 10 mg, 10 mg, Enteral, Once a day, Nghia Pryor MD, 10 mg at 11/24/22 09 metoprolol tartrate (LOPRESSOR) tablet 25 mg, 25 mg, Enteral, 2 times per day, Nghia Pryor MD, 25 mg at 11/24/22 0945 ondansetron ODT (ZOFRAN-ODT) disintegrating tablet 4 mg, 4 mg, Per Tube, Q6H PRN, Marlee Bradley MD, 4 mg at 11/24/22 0534 oxyCODONE (ROXICODONE) immediate release tablet 5 mg, 5 mg, Enteral, Q4H PRN, Marlee Bradley MD, 5mg at 11/24/22 0535 pantoprazole-sodium bicarbonate 2mg/ml oral liquid 40 mg, 40 mg, Per Tube, Daily bef breakfast, Marlee Bradley MD, 40 mg at 11/24/22 0535 senna-docusate (SENOKOT-S) 8.6-50 MG tablet 2 tablet, 2 tablet, Enteral, Daily PRN, Nghia Pryor MD simethicone (MYLICON) chewable tablet 80 mg, 80 mg, Per Tube, BID PRN, Marlee Bradley MD, 80 mg at11/24/2256 tamsulosin (FLOMAX) 24 hr capsule 0.4 mg, 0.4 mg, Enteral, After Breakfast, Nghia Pryor MD, 0.4 mg at 11/24/22944 triamcinolone (KENALOG) 0.1 % ointment, , Apply externally, BID PRN, Nghia Pryor MD, Given at 11/20/222014 verapamil (CALAN) tablet 40 mg, 40 mg, Enteral, Q8H SENDY, Nghia Pryor MD, 40 mg at 11/24/22 0535 Warfarin Per Policy, , Does not apply, Daily, Nghia Pryor MD warfarin tablet 7.5 mg, 7.5 mg, Oral, Daily, Nghia Pryor MD, 7.5 mg at 11/23/22 1736 DATA Vitals: 11/23/22 1453 11/23/22 1906 11/24/22 0400 11/24/22 0726 BP: 115/79 128/70 110/70 Pulse: 81 78 81 Resp: 17 17 Temp: 98.1 ??F (36.7 ??C) 97.2 ??F (36.2 ??C) TempSrc: Oral Oral SpO2: 93% 94% Weight: 199 lb (90.3 kg) Height: Weights (last 3 days) Date/Time Weight 11/24/22 0400 199 lb (90.3 kg) @ANTICOAGSUMMARY@ @FLOWDATE(2706:LAST)@ Intake/Output Summary (Last 24 hours) at 11/24/2022 1306 Last data filed at 11/24/2022 0951 Gross per 24 hour Intake 700 ml Output 2420 ml Net -1720 ml PHYSICAL EXAM General appearance: awake, alert, cooperative, no distress HEENT: Normocephalic, No icterus, No oral lesions, Oral and nasal mucosa moist Neck: Supple, no lymphadenopathy Eyes: EOMI, Conjunctiva normal, No discharge Cardiovascular: Normal heart rate, Normal rhythm, No murmurs, No rubs, No gallops Respiratory: Normal breath sounds, No respiratory distress, No wheezing, No rhonchi, No rales, No chest tenderness. GI: Bowel sounds normal, Soft, No tenderness, No rebound or guarding, No masses. Abdomen: soft without mass, non-tender, with normal bowel sounds Extremities: no clubbing, cyanosis or edema, no calf tenderness Musculoskeletal:no swelling of joints.no redness Psychologic: Mood ok, no suicidal ideation. Skin: No rash. 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 LABS CBC with Differential: Lab Results Component Value Date WBC 7.0 11/23/2022 HGB 10.4 (L) 11/23/2022 HCT 35.0 (L) 11/23/2022 PLT 439 (H) 11/23/2022 MCV 98.6 (H) 11/23/2022 MCH 29.3 11/23/2022 MCHC 29.7 (L) 11/23/2022 RDW 15.6 (H) 11/23/2022 [ BMP: Lab Results Component Value Date NA 141 11/23/2022 K 3.8 11/23/2022 CL 106 11/23/2022 CO2 24 11/23/2022 BUN 15 11/23/2022 CREATININE 0.63 11/23/2022 GLUCOSE 100 11/23/2022 CALCIUM 9.4 11/23/2022 ANIONGAP 11 11/23/2022 MG/PHOS: No results found for: MG, PHOS CKMB: No components found for: CKMB;2 PT/INR: Lab Results Component Value Date INR 1.3 (H) 11/23/2022 BNP: No results found for: BNP Last 3 Troponin: No components found for: TROPONINI;3 U/A: No results found for: COLORU, CLARITYU, GLUCOSEU, BILIRUBINUR, KETONESU, SPECGRAV, BLOODU, PHUR, UROBILINOGEN, NITRITE, LEUKOCYTESUR, MUCUS, RBCUA, WBCUA CMP: Lab Results Component Value Date NA 141 11/23/2022 K 3.8 11/23/2022 CL 106 11/23/2022 CO2 24 11/23/2022 BUN 15 11/23/2022 CREATININE 0.63 11/23/2022 GLUCOSE 100 11/23/2022 CALCIUM 9.4 11/23/2022 ANIONGAP 11 11/23/2022 LFT's: No results found for: ALB, PROT Ionized Calcium: No components found for: IONCA ABG: No results found for: PHART, ZZC0ACM, PO2ART, [id number], BEART, [id number] HgBA1c: No results found for: HGBA1C Lipid Panel: No results found for: CHOL, TRIG, HDL TSH: No results found for: TSH Lab Results Component Value Date GLUCOSE 100 11/23/2022 BUN 15 11/23/2022 CREATININE 0.63 11/23/2022 NA 141 11/23/2022 K 3.8 11/23/2022 CL 106 11/23/2022 CO2 24 11/23/2022 CALCIUM 9.4 11/23/2022 @RESU CBC: Recent Labs Lab Units 11/23/22 0358 WBC X(10)9/L BLOOD x10E9/L 7.0 HGB GM/DL BLOOD gm/dL 10.4* PLT CT X(10)9/L BLOOD x10E9/L 439* MCV FL BLOOD fl 98.6* BMP: Recent Labs Lab Units 11/23/22 0358 SODIUM MMOL/L BLOOD mmol/L 141 POTASSIUM MMOL/L BLOOD mmol/L 3.8 CHLORIDE mmol/L 106 CO2 mmol/L 24 BUN MG/DL BLOOD mg/dL 15 CREATININE mg/dL 0.63 GLUCOSE MG/DL BLOOD mg/dL 100 CALCIUM MG/DL BLOOD mg/dL 9.4 I reviewed the EKG tracing/Xray Recent Labs Lab Units 11/23/22 0358 SODIUM MMOL/L BLOOD mmol/L 141 POTASSIUM MMOL/L BLOOD mmol/L 3.8 CHLORIDE mmol/L 106 CO2 mmol/L 24 BUN MG/DL BLOOD mg/dL 15 CREATININE mg/dL 0.63 GLUCOSE MG/DL BLOOD mg/dL 100 CALCIUM MG/DL BLOOD mg/dL 9.4 ANION GAP BLOOD mmol/L 11 ASSESSMENT AND PLAN Principal Problem: Cerebrovascular accident Acute R MCA CVA Left hemiplegia /p TNK and MT and TICI2b revascularization on 10/19. Developed MCA syndrome s/p hemicrani. 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 - MRI brain w/wo done (11/10): cortical enhancement along the right frontal parietal and temporal regions 2/2 infarct progression but can't rule out cerebritis or infections.LP not concerning, however. -- glenis PEG fluid collection: Improved on abx - Urology replaced puentes (11/09-) TTE showed mobile aortic valve vegetation. IV abxs HTN Continue meds Migraine without aura Pian control GERD PPI Oral contraceptive use DVT Prophylaxis Obesity BMI 36 Nutrition consult Abn LFT Check hep screen Watch with statin D Pain management Today's pain score FEN. Nutrition consult for evaluation of nutritional status and the best diet. And for BMI evaluation and education regarding maintaining a healthy BMI Bladder management Voiding ok Bowel management . Titrate bowel medications for constipation/diarrhea. Skin. Nursing to address skin care throughout stay. Turn every 2 hrs Sleep. Monitor sleep-wake cycle. High Fall risk- Fall precautions GI Prophylaxis: DVT Prophylaxis: Full Resuscitation D/W patient , and attending physician about test results and treatment plan .No family in the room.Patient requiring monitoring of BP and HR while doing 3 hour intensive exercises to avoid fluctuations and hypotension . Aswell as monitoring of nutritional and fluid status , by weights, leg edema .Notified staff and patient to notify me of any change inconditions or new problems * Nghia Pryor MD - 11/23/2022 11:18 PM CDT HOSPITALIST PROGRESS NOTE Patient Name: Consuelo Darby : 1980 Medical Record: [id number] ATTENDING Yamileth Frias MD SUBJECTIVE 11/19 The patient is being seen for follow-up of Cerebrovascular accident. BP, BS , HR, labs, strength. .Chief Complaint CT head ok Headache much better Got upto chair without helmet =did ok Working on better helmet Consider spinal headache if recurs- d/w dr Villagran strength improving, able to do therapy ok. No chest pain, no SOB, no dizziness, no palpitations, no new neurologic symptoms. No cough, No nausea or vomiting, No abdominal pain. History also obtained from Nurse and staff about how the patient did overnight and during the day strength improving, able to do therapy ok. 11/20 Patient seen an examined Doing alright No new issues to report Vitals reviewed 11/21 Patient seen and examined earlier No new issues to report Vitals reviewed Resting comfortably 11/22 Patient seen and examined Doing alright at this time Resting comfortably Vitals reviewed 11/23 The patient was seen in the room this afternoon. The patient currently does not report any chest pain, shortness present nausea or vomiting No reported issues from the floor nurse. The most recent labs and vital signs were reviewed. BRIEF HISTORY The patient is a 42 y.o. y/o female with history of HTN, GERD, presented tO ED with new left sided weakness and slurred speech Diagnosed with acute CVA s/p TNK and m1 occlusion S/P MT . c/b R iliac and common femoral artery occlusion s/p thrombectomy. Developed Fever: consulted ID, broaden abx, Cxs. - MRI brain w/wo done (11/10): cortical enhancement along the right frontal parietal and temporal regions 2/2 infarct progression but can't rule out cerebritis or infections.however LP neg. Also had glenis PEG fluid collection: Improved on abx - Urology replaced puentes (11/09-) Extubated, now on RA HOME Medications Prior to Admission medications Medication Sig Start Date End Date Taking? Authorizing Provider cetirizine (ZyrTEC) 10 MG tablet Take 1 tablet (10 mg total) by mouth in the morning. Yes Historical Provider, omeprazole (PriLOSEC) 20 MG capsule Take 1 capsule (20 mg total) by mouth in the morning. Yes Historical Provider, amitriptyline (ELAVIL) 50 MG tablet 2 tablets (100 mg total) nightly. Historical Provider, CURRENT Medications Current Facility-Administered Medications: acetaminophen (TYLENOL) tablet 500 mg, 500 mg, Per Tube, Q6H PRN, Nghia Pryor MD, 500 mg at 11/23/22832 bisacodyl (DULCOLAX) suppository 10 mg, 10 mg, Rectal, Daily PRN, Nghia Pryor MD cholecalciferol (VITAMIN D3) tablet 2,000 Units, 2,000 Units, Per Tube, Once a day, Nghia Pryor MD, 2,000 Units at 11/23/22832 enoxaparin (LOVENOX) syringe 100 mg, 100 mg, Subcutaneous, Q12H SENDY, Nghia Pryor MD, 100 mg at 11/23/222152 guaiFENesin (ROBITUSSIN) 100 MG/5ML liquid 10 mL, 10 mL, Enteral, BID PRN, Nghia Pryor MD hydrOXYzine (ATARAX) tablet 25 mg, 25 mg, Oral, Q6H PRN, Yamileth Frias MD, 25 mg at 11/23/222153 loratadine (CLARITIN) tablet 10 mg, 10 mg, Enteral, Once a day, Nghia Pryor MD, 10 mg at 11/23/22832 metoprolol tartrate (LOPRESSOR) tablet 25 mg, 25 mg, Enteral, 2 times per day, Nghia Pryor MD, 25 mg at 11/23/222152 ondansetron ODT (ZOFRAN-ODT) disintegrating tablet 4 mg, 4 mg, Per Tube, Q6H PRN, Marlee Bradley MD, 4 mg at 11/23/222152 oxyCODONE (ROXICODONE) immediate release tablet 5 mg, 5 mg, Enteral, Q4H PRN, Marlee Bradley MD, 5mg at 11/23/222153 pantoprazole-sodium bicarbonate 2mg/ml oral liquid 40 mg, 40 mg, Per Tube, Daily bef breakfast, Marlee Bradley MD, 40 mg at 11/23/22644 senna-docusate (SENOKOT-S) 8.6-50 MG tablet 2 tablet, 2 tablet, Enteral, Daily PRN, Nghia Pryor MD simethicone (MYLICON) chewable tablet 80 mg, 80 mg, Per Tube, BID PRN, Marlee Bradley MD, 80 mg at11/20/222013 tamsulosin (FLOMAX) 24 hr capsule 0.4 mg, 0.4 mg, Enteral, After Breakfast, Nghia Pryor MD, 0.4 mg at 11/23/22832 triamcinolone (KENALOG) 0.1 % ointment, , Apply externally, BID PRN, Nghia Pryor MD, Given at 11/20/222014 verapamil (CALAN) tablet 40 mg, 40 mg, Enteral, Q8H SENDY, Nghia Pryor MD, 40 mg at 11/23/222153 Warfarin Per Policy, , Does not apply, Daily, Nghia Pryor MD warfarin tablet 7.5 mg, 7.5 mg, Oral, Daily, Nghia Pryor MD, 7.5 mg at 11/23/22 1736 DATA Vitals: 11/23/22 0645 11/23/22 0656 11/23/22 1453 11/23/22 1906 BP: 114/75 114/73 115/79 128/70 Pulse: 96 81 78 Resp: 17 17 Temp: 98.3 ??F (36.8 ??C) 98.1 ??F (36.7 ??C) TempSrc: Oral Oral SpO2: 96% 93% Weight: Height: Weights (last 3 days) None @ANTICOAGSUMMARY@ @FLOWDATE(2706:LAST)@ Intake/Output Summary (Last 24 hours) at 11/23/2022 2318 Last data filed at 11/23/2022 1821 Gross per 24 hour Intake 1126 ml Output 1870 ml Net -744 ml PHYSICAL EXAM General appearance: awake, alert, cooperative, no distress HEENT: Normocephalic, No icterus, No oral lesions, Oral and nasal mucosa moist Neck: Supple, no lymphadenopathy Eyes: EOMI, Conjunctiva normal, No discharge Cardiovascular: Normal heart rate, Normal rhythm, No murmurs, No rubs, No gallops Respiratory: Normal breath sounds, No respiratory distress, No wheezing, No rhonchi, No rales, No chest tenderness. GI: Bowel sounds normal, Soft, No tenderness, No rebound or guarding, No masses. Abdomen: soft without mass, non-tender, with normal bowel sounds Extremities: no clubbing, cyanosis or edema, no calf tenderness Musculoskeletal:no swelling of joints.no redness Psychologic: Mood ok, no suicidal ideation. Skin: No rash. 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 LABS CBC with Differential: Lab Results Component Value Date WBC 7.0 11/23/2022 HGB 10.4 (L) 11/23/2022 HCT 35.0 (L) 11/23/2022 PLT 439 (H) 11/23/2022 MCV 98.6 (H) 11/23/2022 MCH 29.3 11/23/2022 MCHC 29.7 (L) 11/23/2022 RDW 15.6 (H) 11/23/2022 [ BMP: Lab Results Component Value Date NA 141 11/23/2022 K 3.8 11/23/2022 CL 106 11/23/2022 CO2 24 11/23/2022 BUN 15 11/23/2022 CREATININE 0.63 11/23/2022 GLUCOSE 100 11/23/2022 CALCIUM 9.4 11/23/2022 ANIONGAP 11 11/23/2022 MG/PHOS: No results found for: MG, PHOS CKMB: No components found for: CKMB;2 PT/INR: Lab Results Component Value Date INR 1.3 (H) 11/23/2022 BNP: No results found for: BNP Last 3 Troponin: No components found for: TROPONINI;3 U/A: No results found for: COLORU, CLARITYU, GLUCOSEU, BILIRUBINUR, KETONESU, SPECGRAV, BLOODU, PHUR, UROBILINOGEN, NITRITE, LEUKOCYTESUR, MUCUS, RBCUA, WBCUA CMP: Lab Results Component Value Date NA 141 11/23/2022 K 3.8 11/23/2022 CL 106 11/23/2022 CO2 24 11/23/2022 BUN 15 11/23/2022 CREATININE 0.63 11/23/2022 GLUCOSE 100 11/23/2022 CALCIUM 9.4 11/23/2022 ANIONGAP 11 11/23/2022 LFT's: No results found for: ALB, PROT Ionized Calcium: No components found for: IONCA ABG: No results found for: PHART, [id number], PO2ART, TIL4EMT, BEART, [id number] HgBA1c: No results found for: HGBA1C Lipid Panel: No results found for: CHOL, TRIG, HDL TSH: No results found for: TSH Lab Results Component Value Date GLUCOSE 100 11/23/2022 BUN 15 11/23/2022 CREATININE 0.63 11/23/2022 NA 141 11/23/2022 K 3.8 11/23/2022 CL 106 11/23/2022 CO2 24 11/23/2022 CALCIUM 9.4 11/23/2022 @RESU CBC: Recent Labs Lab Units 11/23/22 0358 WBC X(10)9/L BLOOD x10E9/L 7.0 HGB GM/DL BLOOD gm/dL 10.4* PLT CT X(10)9/L BLOOD x10E9/L 439* MCV FL BLOOD fl 98.6* BMP: Recent Labs Lab Units 11/23/22 0358 SODIUM MMOL/L BLOOD mmol/L 141 POTASSIUM MMOL/L BLOOD mmol/L 3.8 CHLORIDE mmol/L 106 CO2 mmol/L 24 BUN MG/DL BLOOD mg/dL 15 CREATININE mg/dL 0.63 GLUCOSE MG/DL BLOOD mg/dL 100 CALCIUM MG/DL BLOOD mg/dL 9.4 I reviewed the EKG tracing/Xray Recent Labs Lab Units 11/23/22 0358 SODIUM MMOL/L BLOOD mmol/L 141 POTASSIUM MMOL/L BLOOD mmol/L 3.8 CHLORIDE mmol/L 106 CO2 mmol/L 24 BUN MG/DL BLOOD mg/dL 15 CREATININE mg/dL 0.63 GLUCOSE MG/DL BLOOD mg/dL 100 CALCIUM MG/DL BLOOD mg/dL 9.4 ANION GAP BLOOD mmol/L 11 ASSESSMENT AND PLAN Principal Problem: Cerebrovascular accident Acute R MCA CVA Left hemiplegia /p TNK and MT and TICI2b revascularization on 10/19. Developed MCA syndrome s/p hemicrani. 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 - MRI brain w/wo done (11/10): cortical enhancement along the right frontal parietal and temporal regions 2/2 infarct progression but can't rule out cerebritis or infections.LP not concerning, however. -- glenis PEG fluid collection: Improved on abx - Urology replaced puentes (11/09-) TTE showed mobile aortic valve vegetation. IV abxs HTN Continue meds Migraine without aura Pian control GERD PPI Oral contraceptive use DVT Prophylaxis Obesity BMI 36 Nutrition consult Abn LFT Check hep screen Watch with statin D Pain management Today's pain score FEN. Nutrition consult for evaluation of nutritional status and the best diet. And for BMI evaluation and education regarding maintaining a healthy BMI Bladder management Voiding ok Bowel management . Titrate bowel medications for constipation/diarrhea. Skin. Nursing to address skin care throughout stay. Turn every 2 hrs Sleep. Monitor sleep-wake cycle. High Fall risk- Fall precautions GI Prophylaxis: DVT Prophylaxis: Full Resuscitation D/W patient , and attending physician about test results and treatment plan .No family in the room.Patient requiring monitoring of BP and HR while doing 3 hour intensive exercises to avoid fluctuations and hypotension . Aswell as monitoring of nutritional and fluid status , by weights, leg edema .Notified staff and patient to notify me of any change inconditions or new problems * Yamileth Frias MD - 11/23/2022 1:28 PM CDT PM&R PROGRESS NOTE This is Face to Face Visit note Consuelo Darby is a 42 y.o. female patient. Slept well last night, mood better benefit from therapy in rehab setting REVIEW OF FUNCTIONAL STATUS SM Functional Status PT Data (since 11/20/2022) Value Time User Bed Mobility Comment Rolling in bed: rolling left with cues and max assist to complete motion. Rolling right with max assist of two for left side support and complete motion. 11/22/2022 1:16 PM Kellie Moran, PT SM Functional Status OT Data (since 11/20/2022) None SM Functional Status [employer] Data (since 11/20/2022) Value Time User Cognitive Communication Immediate memory; Orientation; Basic attention; Task persistence; Behavior management 11/22/2022 5:[address] [facility] Dysphagia Treatment Oral care; Therapeutic trials; Other (comment); Swallow strategy training Oral movement 11/22/2022 5:[address] ANGIE Harding Narrative 1. Patient was seen for therapy in her room, seated in tilt in space wheelchair; alert but anxious during most of the session. Patient reported discomfort in her bladder, her hip, and her head with helmet on. Patient became increasingly upset as the session progressed, begging to be able to go back to bed. [employer] explained that she had more therapy sessions and was unable to get in bed now. Patient was persistent in requesting to lie down in bed. Patient removed her helmet several times due to discomfort. 2. Patient was provided with oral care using the [employer] oral care toothbrush and suction kit. Patient stated that it made her mouth feel much housecleaner and that she was appreciative. 3. Patient was provided with a model for performance of oral movements to improve labial and lingual function for control and manipulation of food and liquid. Patient exhibited minimal volitional oral movement for labial protrusion or retraction. She was unable to protrude her tongue but was able to slightly lateralize her tongue to the right and to the left. 3. Patient was presented with ice chip trials x6. Loss of the ice chip noted from the left side of the oral cavity x2. Patient was able to swallow with no clinical signs of aspiration. She was given a small amount of water on a spoon x2 with cough resulting on 1 of the 2 swallows. 4. OT came in for next therapy session. 11/22/2022 5:04 PM Peyton KeyshaST Ela Patient Active Problem List Diagnosis Cerebrovascular accident Hypertension Past Medical History: Diagnosis Date Gastroesophageal reflux disease Hypertension Migraine Current Facility-Administered Medications: acetaminophen (TYLENOL) tablet 500 mg, 500 mg, Per Tube, Q6H PRN, Nghia Pryor MD, 500 mg at 11/23/22 0833 bisacodyl (DULCOLAX) suppository 10 mg, 10 mg, Rectal, Daily PRN, Nghia Pryor MD cholecalciferol (VITAMIN D3) tablet 2,000 Units, 2,000 Units, Per Tube, Once a day, Nghia Pryor MD, 2,000 Units at 11/23/22 0833 enoxaparin (LOVENOX) syringe 100 mg, 100 mg, Subcutaneous, Q12H SENDY, Nghia Pryor MD, 100 mg at 11/23/22 0834 guaiFENesin (ROBITUSSIN) 100 MG/5ML liquid 10 mL, 10 mL, Enteral, BID PRN, Nghia Pryor MD hydrOXYzine (ATARAX) tablet 25 mg, 25 mg, Oral, Q6H PRN, Yamileth Frias MD, 25 mg at 11/22/22 2215 loratadine (CLARITIN) tablet 10 mg, 10 mg, Enteral, Once a day, Nghia Pryor MD, 10 mg at 11/23/22 0833 metoprolol tartrate (LOPRESSOR) tablet 25 mg, 25 mg, Enteral, 2 times per day, Nghia Pryor MD, 25 mg at 11/23/22 0833 ondansetron ODT (ZOFRAN-ODT) disintegrating tablet 4 mg, 4 mg, Per Tube, Q6H PRN, Marlee Bradley MD, 4 mg at 11/23/22 0833 oxyCODONE (ROXICODONE) immediate release tablet 5 mg, 5 mg, Enteral, Q4H PRN, Marlee Bradley MD, 5mg at 11/22/22 1045 pantoprazole-sodium bicarbonate 2mg/ml oral liquid 40 mg, 40 mg, Per Tube, Daily bef breakfast, Marlee Bradley MD, 40 mg at 11/23/22 0645 senna-docusate (SENOKOT-S) 8.6-50 MG tablet 2 tablet, 2 tablet, Enteral, Daily PRN, Nghia Pryor MD simethicone (MYLICON) chewable tablet 80 mg, 80 mg, Per Tube, BID PRN, Marlee Bradley MD, 80 mg at11/20/222013 tamsulosin (FLOMAX) 24 hr capsule 0.4 mg, 0.4 mg, Enteral, After Breakfast, Nghia Pryor MD, 0.4 mg at 11/23/22 0833 triamcinolone (KENALOG) 0.1 % ointment, , Apply externally, BID PRN, Nghia Pryor MD, Given at 11/20/222014 verapamil (CALAN) tablet 40 mg, 40 mg, Enteral, Q8H SENDY, Nghia Pryor MD, 40 mg at 11/23/22 0645 Warfarin Per Policy, , Does not apply, Daily, Nghia Pryor MD warfarin tablet 7.5 mg, 7.5 mg, Oral, Daily, Nghia Pryor MD Review of Systems: Review of Systems Constitutional: Negative for appetite change. HENT: Negative for congestion. Respiratory: Negative for shortness of breath. Cardiovascular: Positive for leg swelling. Genitourinary: Negative for flank pain. Musculoskeletal: Negative for arthralgias and joint swelling. Neurological: Negative for headaches. Psychiatric/Behavioral: The patient is nervous/anxious. Physical Exam Vitals: 11/23/22 0656 BP: 114/73 Pulse: 96 Resp: 17 Temp: 98.3 ??F (36.8 ??C) SpO2: 96% Physical Exam Constitutional: General: She is not in acute distress. HENT: Head: Atraumatic. Eyes: Conjunctiva/sclera: Conjunctivae normal. Cardiovascular: Rate and Rhythm: Normal rate. Pulmonary: Effort: Pulmonary effort is normal. Abdominal: General: There is no distension. Skin: Findings: No erythema. Neurological: Coordination: Coordination abnormal. Neurologic Exam Lab Data Reviewed current lab results available to me today. Lab Results Component Value Date WBC 7.0 11/23/2022 HGB 10.4 (L) 11/23/2022 HCT 35.0 (L) 11/23/2022 MCV 98.6 (H) 11/23/2022 PLT 439 (H) 11/23/2022 Lab Results Component Value Date GLUCOSE 100 11/23/2022 CALCIUM 9.4 11/23/2022 NA 141 11/23/2022 K 3.8 11/23/2022 CO2 24 11/23/2022 CL 106 11/23/2022 BUN 15 11/23/2022 CREATININE 0.63 11/23/2022 ANIONGAP 11 11/23/2022 Imaging Reviewed current imaging results available to me today. XR abdomen 1 vws Result Date: 11/19/2022 NARRATIVE: Procedure: XR ABDOMEN KUB Exam Date: 11/19/2022 9:38 AM Location: [facility] Indication: abdominal fullness, reflux. Patient on peg tube feeding FINDINGS/IMPRESSION: Air is seen throughout the colonic structures. No dilated bowel loops are identified. There is no evidence tosuggest obstruction. There is no gross free intraperitoneal air. There does appear to be a gastrostomy tube superimposing the stomach. > Interpreting Provider: Rebel Hernandez MD on 11/19/2022 9:[address] head WO contrast Result Date: 11/19/2022 NARRATIVE: Procedure: CT HEAD WO CONTRAST Exam Date: 11/19/2022 9:31 AM Location: [facility] CT head without IV contrast INDICATION: worsening pain TECHNIQUE: CT examination of the head was performed from the base of the skull through the vertex using multiple axial images without IV contrast. FINDINGS: No old studies are available for comparison purposes. VIZ AI was utilized. Patient is status post right-sided craniectomy. There is extensive encephalomalacia involving the right frontal lobe with with some minimal involvement of the temporal and parietal lobe. There is no acute infarct. There is no mass. There is no hemorrhage. There are no extra-axial fluid collections. There is no midline shift. IMPRESSION: IMPRESSION: Right frontal craniectomy with extensive encephalomalacia involving the right frontal lobe as well as some involvement of the parietal and temporal lobes. > Interpreting Provider: Rebel Hernandez MD on 11/19/2022 9:36 AM Assessment & Plan: Consuelo Darby is a 42 y.o. female patient with Cerebrovascular accident functional impairment for rehab Cerebrovascular accident PT, OT for gait training and ADL training, Nursing for bowel and bladder care. Speech therapy for swallow evaluation and cognitive evaluation. Acute R MCA CVA Left dense hemiplegia LUE / LLE : 0/5 Left face droop s/p TNK and MT and TICI2b revascularization on 10/19. cerebral edema and midline shift s/p hemicraniectomy 10/20/22 Helmet Incision care R iliac and common femoral artery occlusion 10/30: R common femoral thrombectomy and patch angioplasty On Warfarin # Dysphagia: Ice chips PRN Tube feeds Dysarthria NPO -- glenis PEG fluid collection: TTE showed mobile aortic valve vegetation. S /P IV abxs HTN Continue metoprolol , verapamil # headaches: On Tylenol and Oxy PRN Pian control # Neurogenic bladder: Failed Voiding trials on 11/22 puentes placed back on 11/23 Urology consult Skin/Wounds: - Skin integrity and Pressure ulcer prevention: frequent repositioning and adequate pressure relief. Maintain clean, dry skin. If needed, q2 hour turns when in bed and regular skin checks, application of protective barrier cream, toileting schedule. Wound RN consult Bowel & Bladder - monitor bowel movement - adjust scheduled and PRN bowel regimen as needed - monitor for adequate urinary output - should suspicion for urinary retention arise, PVR of random bladder scan will be performed for further assessment Continue current medical management. RECOMMENDATIONS At the current time, this inpatient hospital rehabilitation stay is medically necessary to achieve important health and functional goals. The patient requires frequent physician visits, 24-hour rehabilitation nursing, and a coordinated intensive rehabilitation program as described above to address complex medical, nursing, and rehabilitation needs. Continue inpatient comprehensive interdisciplinary rehabilitation to address strengthening, mobility skills, self care, cognitive functioning, speech, communication and swallowing needs. The patient continues to require the interdisciplinary team approach and 24 hour monitoring. DIET: Dietary Orders (From admission, onward) Start Ordered 11/17/22 1746 NPO Diet, Tube Feeding No Tray Strict NPO; Jevity 1.5; Tube Feeding Continuous rate (mL/hr): 50; Tube Feeding water flush (mL): 150; Water Flush type: Water; Water flush frequency: Every 4 hours Diet effective now End/Expires: Until Specified Question Answer Comment NPO Status: Strict NPO Tube Feeding Formula: Jevity 1.5 Tube Feeding Continuous rate (mL/hr): 50 Tube Feeding water flush (mL): 150 Water Flush type: Water Water flush frequency: Every [address] order in third green party system. Done 11/17/22 1749 Patient Active Problem List Diagnosis Cerebrovascular accident Hypertension CHIN: YAMILETH FRIAS MD * Sandra Land, PharmD - 11/23/2022 12:02 PM CDT [facility] Pharmacy Note Pharmacy Consultation - Warfarin Dosing and Monitoring Consuelo Darby is a 42 y.o. female who has been consulted for pharmacy warfarin dosing and monitoring for indication of embolic stroke. Labs: INR Date Value Ref Range Status 11/23/2022 1.3 (H) 0.9 - 1.1 Final 11/21/2022 1.3 (H) 0.9 - 1.1 Final 11/20/2022 1.2 (H) 0.9 - 1.1 Final 11/19/2022 1.2 (H) 0.9 - 1.1 Final 11/18/2022 1.2 (H) 0.9 - 1.1 Final HGB gm/dL Blood Date Value Ref Range Status 11/23/2022 10.4 (L) 12.0 - 15.6 gm/dL Final 11/20/2022 10.6 (L) 12.0 - 15.6 gm/dL Final 11/18/2022 10.6 (L) 12.0 - 15.6 gm/dL Final HCT % Blood Date Value Ref Range Status 11/23/2022 35.0 (L) 35.9 - 45.5 % Final 11/20/2022 33.6 (L) 35.9 - 45.5 % Final 11/18/2022 34.2 (L) 35.9 - 45.5 % Final Plt Ct X(10)9/L Blood Date Value Ref Range Status 11/23/2022 439 (H) 153 - 416 x10E9/L Final 11/20/2022 522 (H) 153 - 416 x10E9/L Final 11/18/2022 541 (H) 153 - 416 x10E9/L Final Current Facility-Administered Medications: acetaminophen (TYLENOL) tablet 500 mg, 500 mg, Per Tube, Q6H PRN, Nghia Pryor MD, 500 mg at 11/23/22 08 bisacodyl (DULCOLAX) suppository 10 mg, 10 mg, Rectal, Daily PRN, Nghia Pryor MD cholecalciferol (VITAMIN D3) tablet 2,000 Units, 2,000 Units, Per Tube, Once a day, Nghia Pryor MD, 2,000 Units at 11/23/22 08 enoxaparin (LOVENOX) syringe 100 mg, 100 mg, Subcutaneous, Q12H SENDY, Nghia Pryor MD, 100 mg at 11/23/22 0834 guaiFENesin (ROBITUSSIN) 100 MG/5ML liquid 10 mL, 10 mL, Enteral, BID PRN, Nghia Pryor MD hydrOXYzine (ATARAX) tablet 25 mg, 25 mg, Oral, Q6H PRN, Yamileth Frias MD, 25 mg at 11/22/22 2215 loratadine (CLARITIN) tablet 10 mg, 10 mg, Enteral, Once a day, Nghia Pryor MD, 10 mg at 11/23/22 08 metoprolol tartrate (LOPRESSOR) tablet 25 mg, 25 mg, Enteral, 2 times per day, Nghia Pryor MD, 25 mg at 11/23/22 08 ondansetron ODT (ZOFRAN-ODT) disintegrating tablet 4 mg, 4 mg, Per Tube, Q6H PRN, Marlee Bradley MD, 4 mg at 11/23/22 0833 oxyCODONE (ROXICODONE) immediate release tablet 5 mg, 5 mg, Enteral, Q4H PRN, Marlee Bradley MD, 5mg at 11/22/22 1045 pantoprazole-sodium bicarbonate 2mg/ml oral liquid 40 mg, 40 mg, Per Tube, Daily bef breakfast, Marlee Bradley MD, 40 mg at 11/23/22 0645 senna-docusate (SENOKOT-S) 8.6-50 MG tablet 2 tablet, 2 tablet, Enteral, Daily PRN, Nghia Pryor MD simethicone (MYLICON) chewable tablet 80 mg, 80 mg, Per Tube, BID PRN, Marlee Bradley MD, 80 mg at11/20/222013 tamsulosin (FLOMAX) 24 hr capsule 0.4 mg, 0.4 mg, Enteral, After Breakfast, Nghia Pryor MD, 0.4 mg at 11/23/22 0833 triamcinolone (KENALOG) 0.1 % ointment, , Apply externally, BID PRN, Nghia Pryor MD, Given at 11/20/222014 verapamil (CALAN) tablet 40 mg, 40 mg, Enteral, Q8H SENDY, Nghia Pryor MD, 40 mg at 11/23/22 0645 Warfarin Per Policy, , Does not apply, Daily, Nghia Pryor MD warfarin tablet 7.5 mg, 7.5 mg, Oral, Daily, Nghia Pryor MD Assessment: Warfarin Indication: ischemic stroke due to septic emboli; MT c/b R iliac and common femoral arteryocclusion s/p thrombectomy. INR Goal: 2-3 Today's INR is 1.3 and is Subtherapeutic. Bridging Therapy: Yes, describe: Lovenox 100mg BID until therapeutic Risk Factors for Bleeding: Lovenox Pertinent Medication Related to Warfarin: lovenox, doxycyline, meropenem Plan: 1. Administer warfarin 7.5mg by mouth daily for 2 days 2. Check INR on Sunday. Pharmacy will follow up with INR recheck and order subsequent warfarin doses pending INR results. 3.The patient will continue to be monitored by the pharmacy department for the duration of the length of stay for assurance of medication safety and efficacy. SANDRA LAND PharmD 12:01 PM CDT 11/23/22 * Nghia Pryor MD - 11/22/2022 1:42 PM CDT HOSPITALIST PROGRESS NOTE Patient Name: Consuelo Darby : 1980 Medical Record: [id number] ATTENDING Yamileth Frias MD SUBJECTIVE 11/19 The patient is being seen for follow-up of Cerebrovascular accident. BP, BS , HR, labs, strength. .Chief Complaint CT head ok Headache much better Got upto chair without helmet =did ok Working on better helmet Consider spinal headache if recurs- d/w dr Villagran strength improving, able to do therapy ok. No chest pain, no SOB, no dizziness, no palpitations, no new neurologic symptoms. No cough, No nausea or vomiting, No abdominal pain. History also obtained from Nurse and staff about how the patient did overnight and during the day strength improving, able to do therapy ok. 11/20 Patient seen an examined Doing alright No new issues to report Vitals reviewed 11/21 Patient seen and examined earlier No new issues to report Vitals reviewed Resting comfortably 11/22 Patient seen and examined Doing alright at this time Resting comfortably Vitals reviewed BRIEF HISTORY The patient is a 42 y.o. y/o female with history of HTN, GERD, presented tO ED with new left sided weakness and slurred speech Diagnosed with acute CVA s/p TNK and m1 occlusion S/P MT . c/b R iliac and common femoral artery occlusion s/p thrombectomy. Developed Fever: consulted ID, broaden abx, Cxs. - MRI brain w/wo done (11/10): cortical enhancement along the right frontal parietal and temporal regions 2/2 infarct progression but can't rule out cerebritis or infections.however LP neg. Also had glenis PEG fluid collection: Improved on abx - Urology replaced puentes (11/09-) Extubated, now on RA HOME Medications Prior to Admission medications Medication Sig Start Date End Date Taking? Authorizing Provider cetirizine (ZyrTEC) 10 MG tablet Take 1 tablet (10 mg total) by mouth in the morning. Yes Historical Provider, omeprazole (PriLOSEC) 20 MG capsule Take 1 capsule (20 mg total) by mouth in the morning. Yes Historical Provider, amitriptyline (ELAVIL) 50 MG tablet 2 tablets (100 mg total) nightly. Historical Provider, CURRENT Medications Current Facility-Administered Medications: acetaminophen (TYLENOL) tablet 500 mg, 500 mg, Per Tube, Q6H PRN, Nghia Pryor MD, 500 mg at 11/22/22 0740 bisacodyl (DULCOLAX) suppository 10 mg, 10 mg, Rectal, Daily PRN, Nghia Pryor MD cholecalciferol (VITAMIN D3) tablet 2,000 Units, 2,000 Units, Per Tube, Once a day, Nghia Pryor MD, 2,000 Units at 11/22/22 0831 enoxaparin (LOVENOX) syringe 100 mg, 100 mg, Subcutaneous, Q12H ESNDY, Nghia Pryor MD, 100 mg at 11/22/22 08 guaiFENesin (ROBITUSSIN) 100 MG/5ML liquid 10 mL, 10 mL, Enteral, BID PRN, Nghia Pryor MD hydrOXYzine (ATARAX) tablet 25 mg, 25 mg, Oral, Q6H PRN, Yamileth Frias MD loratadine (CLARITIN) tablet 10 mg, 10 mg, Enteral, Once a day, Nghia Pryor MD, 10 mg at 11/22/22 08 metoprolol tartrate (LOPRESSOR) tablet 25 mg, 25 mg, Enteral, 2 times per day, Nghia Pryor MD, 25 mg at 11/22/22 0831 ondansetron ODT (ZOFRAN-ODT) disintegrating tablet 4 mg, 4 mg, Per Tube, Q6H PRN, Marlee Bradley MD, 4 mg at 11/22/22 1128 oxyCODONE (ROXICODONE) immediate release tablet 5 mg, 5 mg, Enteral, Q4H PRN, Marlee Bradley MD, 5mg at 11/22/22 1045 pantoprazole-sodium bicarbonate 2mg/ml oral liquid 40 mg, 40 mg, Per Tube, Daily bef breakfast, Marlee Bradley MD, 40 mg at 11/22/22 0530 senna-docusate (SENOKOT-S) 8.6-50 MG tablet 2 tablet, 2 tablet, Enteral, Daily PRN, Nghia Pryor MD simethicone (MYLICON) chewable tablet 80 mg, 80 mg, Per Tube, BID PRN, Marlee Bradley MD, 80 mg at11/20/222013 tamsulosin (FLOMAX) 24 hr capsule 0.4 mg, 0.4 mg, Enteral, After Breakfast, Nghia Pryor MD, 0.4 mg at 11/22/22 0831 triamcinolone (KENALOG) 0.1 % ointment, , Apply externally, BID PRN, Nghia Pryor MD, Given at 11/20/222014 verapamil (CALAN) tablet 40 mg, 40 mg, Enteral, Q8H SENDY, Nghia Pryor MD, 40 mg at 11/22/22 1322 Warfarin Per Policy, , Does not apply, Daily, Nghia Pryor MD warfarin tablet 5 mg, 5 mg, Oral, Daily, Nghia Pryor MD, 5 mg at 11/21/22 1701 DATA Vitals: 11/21/22 1933 11/22/22 0530 11/22/22 0702 11/22/22 1322 BP: 108/74 118/68 106/64 129/81 Pulse: 75 72 83 Resp: 17 18 Temp: 97.7 ??F (36.5 ??C) 98.2 ??F (36.8 ??C) TempSrc: Oral Oral SpO2: 96% 96% Weight: Height: Weights (last 3 days) None @ANTICOAGSUMMARY@ @FLOWDATE(2706:LAST)@ Intake/Output Summary (Last 24 hours) at 11/22/2022 1342 Last data filed at 11/22/2022 1200 Gross per 24 hour Intake 150 ml Output 650 ml Net -500 ml PHYSICAL EXAM General appearance: awake, alert, cooperative, no distress HEENT: Normocephalic, No icterus, No oral lesions, Oral and nasal mucosa moist Neck: Supple, no lymphadenopathy Eyes: EOMI, Conjunctiva normal, No discharge Cardiovascular: Normal heart rate, Normal rhythm, No murmurs, No rubs, No gallops Respiratory: Normal breath sounds, No respiratory distress, No wheezing, No rhonchi, No rales, No chest tenderness. GI: Bowel sounds normal, Soft, No tenderness, No rebound or guarding, No masses. Abdomen: soft without mass, non-tender, with normal bowel sounds Extremities: no clubbing, cyanosis or edema, no calf tenderness Musculoskeletal:no swelling of joints.no redness Psychologic: Mood ok, no suicidal ideation. Skin: No rash. 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 LABS CBC with Differential: Lab Results Component Value Date WBC 8.1 11/20/2022 HGB 10.6 (L) 11/20/2022 HCT 33.6 (L) 11/20/2022 PLT 522 (H) 11/20/2022 MCV 94.1 11/20/2022 MCH 29.7 11/20/2022 MCHC 31.5 11/20/2022 RDW 16.0 (H) 11/20/2022 [ BMP: Lab Results Component Value Date NA 141 11/20/2022 K 3.8 11/20/2022 CL 105 11/20/2022 CO2 26 11/20/2022 BUN 21 (H) 11/20/2022 CREATININE 0.77 11/20/2022 GLUCOSE 114 (H) 11/20/2022 CALCIUM 9.2 11/20/2022 ANIONGAP 10 11/20/2022 MG/PHOS: No results found for: MG, PHOS CKMB: No components found for: CKMB;2 PT/INR: Lab Results Component Value Date INR 1.3 (H) 11/21/2022 BNP: No results found for: BNP Last 3 Troponin: No components found for: TROPONINI;3 U/A: No results found for: COLORU, CLARITYU, GLUCOSEU, BILIRUBINUR, KETONESU, SPECGRAV, BLOODU, PHUR, UROBILINOGEN, NITRITE, LEUKOCYTESUR, MUCUS, RBCUA, WBCUA CMP: Lab Results Component Value Date NA 141 11/20/2022 K 3.8 11/20/2022 CL 105 11/20/2022 CO2 26 11/20/2022 BUN 21 (H) 11/20/2022 CREATININE 0.77 11/20/2022 GLUCOSE 114 (H) 11/20/2022 CALCIUM 9.2 11/20/2022 ANIONGAP 10 11/20/2022 LFT's: No results found for: ALB, PROT Ionized Calcium: No components found for: IONCA ABG: No results found for: PHART, SNP9PKP, PO2ART, XHJ9OTY, BEART, I2RTYHIS HgBA1c: No results found for: HGBA1C Lipid Panel: No results found for: CHOL, TRIG, HDL TSH: No results found for: TSH Lab Results Component Value Date GLUCOSE 114 (H) 11/20/2022 BUN 21 (H) 11/20/2022 CREATININE 0.77 11/20/2022 NA 141 11/20/2022 K 3.8 11/20/2022 CL 105 11/20/2022 CO2 26 11/20/2022 CALCIUM 9.2 11/20/2022 @RESU CBC: Recent Labs Lab Units 11/20/22 0740 WBC X(10)9/L BLOOD x10E9/L 8.1 HGB GM/DL BLOOD gm/dL 10.6* PLT CT X(10)9/L BLOOD x10E9/L 522* MCV FL BLOOD fl 94.1 BMP: Recent Labs Lab Units 11/20/22 0740 SODIUM MMOL/L BLOOD mmol/L 141 POTASSIUM MMOL/L BLOOD mmol/L 3.8 CHLORIDE mmol/L 105 CO2 mmol/L 26 BUN MG/DL BLOOD mg/dL 21* CREATININE mg/dL 0.77 GLUCOSE MG/DL BLOOD mg/dL 114* CALCIUM MG/DL BLOOD mg/dL 9.2 I reviewed the EKG tracing/Xray Recent Labs Lab Units 11/20/22 0740 SODIUM MMOL/L BLOOD mmol/L 141 POTASSIUM MMOL/L BLOOD mmol/L 3.8 CHLORIDE mmol/L 105 CO2 mmol/L 26 BUN MG/DL BLOOD mg/dL 21* CREATININE mg/dL 0.77 GLUCOSE MG/DL BLOOD mg/dL 114* CALCIUM MG/DL BLOOD mg/dL 9.2 ANION GAP BLOOD mmol/L 10 ASSESSMENT AND PLAN Principal Problem: Cerebrovascular accident Acute R MCA CVA Left hemiplegia /p TNK and MT and TICI2b revascularization on 10/19. Developed MCA syndrome s/p hemicrani. 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 - MRI brain w/wo done (11/10): cortical enhancement along the right frontal parietal and temporal regions 2/2 infarct progression but can't rule out cerebritis or infections.LP not concerning, however. -- glenis PEG fluid collection: Improved on abx - Urology replaced puentes (11/09-) TTE showed mobile aortic valve vegetation. IV abxs HTN Continue meds Migraine without aura Pian control GERD PPI Oral contraceptive use DVT Prophylaxis Obesity BMI 36 Nutrition consult Abn LFT Check hep screen Watch with statin D Pain management Today's pain score FEN. Nutrition consult for evaluation of nutritional status and the best diet. And for BMI evaluation and education regarding maintaining a healthy BMI Bladder management Voiding ok Bowel management . Titrate bowel medications for constipation/diarrhea. Skin. Nursing to address skin care throughout stay. Turn every 2 hrs Sleep. Monitor sleep-wake cycle. High Fall risk- Fall precautions GI Prophylaxis: DVT Prophylaxis: Full Resuscitation D/W patient , and attending physician about test results and treatment plan .No family in the room.Patient requiring monitoring of BP and HR while doing 3 hour intensive exercises to avoid fluctuations and hypotension . Aswell as monitoring of nutritional and fluid status , by weights, leg edema .Notified staff and patient to notify me of any change inconditions or new problems * Yamileth Frias MD - 11/22/2022 10:15 AM CDT PM&R PROGRESS NOTE This is Face to Face Visit note Consuelo Darby is a 42 y.o. female patient. Getting dressed this morning , no c/o headache working with therapy this morning, REVIEW OF FUNCTIONAL STATUS SM Functional Status PT Data (since 11/19/2022) None TRANSFERS: Sit to/from supine to wedge with max A x 2 for trunk lift support and L LE and UE management Tilt in space w/c to bed transfer dependent of 2 with Little lift; max assist of 1 for anterior and lateral weight shift in w/c to place Little pad and assist of another to place pad behind client; needs assist for trunk control and balance as well as L UE and L LE management Mat to w/c to level surface with use of sliding board and using sheet under buttocks with max A x 2for lift assist and positioning, trunk control SM Functional Status OT Data (since 11/19/2022) None Patient Active Problem List Diagnosis Cerebrovascular accident Hypertension Past Medical History: Diagnosis Date Gastroesophageal reflux disease Hypertension Migraine Current Facility-Administered Medications: acetaminophen (TYLENOL) tablet 500 mg, 500 mg, Per Tube, Q6H PRN, Nghia Pryor MD, 500 mg at 11/22/22 0740 bisacodyl (DULCOLAX) suppository 10 mg, 10 mg, Rectal, Daily PRN, Nghia Pryor MD cholecalciferol (VITAMIN D3) tablet 2,000 Units, 2,000 Units, Per Tube, Once a day, Nghia Pryor MD, 2,000 Units at 11/22/22 0831 enoxaparin (LOVENOX) syringe 100 mg, 100 mg, Subcutaneous, Q12H SENDY, Nghia Pryor MD, 100 mg at 11/22/22 0831 guaiFENesin (ROBITUSSIN) 100 MG/5ML liquid 10 mL, 10 mL, Enteral, BID PRN, Nghia Pryor MD loratadine (CLARITIN) tablet 10 mg, 10 mg, Enteral, Once a day, Nghia Pryor MD, 10 mg at 11/22/22 0831 meropenem (MERREM) 2 g in sodium chloride 0.9 % 140 mL IVPB, 2 g, Intravenous, Q8H, Nghia Pryor MD, 2 g at 11/22/22 0346 metoprolol tartrate (LOPRESSOR) tablet 25 mg, 25 mg, Enteral, 2 times per day, Nghia Pryor MD, 25 mg at 11/22/22 0831 ondansetron ODT (ZOFRAN-ODT) disintegrating tablet 4 mg, 4 mg, Per Tube, Q6H PRN, Marlee Bradley MD, 4 mg at 11/20/22 1159 oxyCODONE (ROXICODONE) immediate release tablet 5 mg, 5 mg, Enteral, Q4H PRN, Marlee Bradley MD, 5mg at 11/21/22 1311 pantoprazole-sodium bicarbonate 2mg/ml oral liquid 40 mg, 40 mg, Per Tube, Daily bef breakfast, Marlee Bradley MD, 40 mg at 11/22/22 0530 senna-docusate (SENOKOT-S) 8.6-50 MG tablet 2 tablet, 2 tablet, Enteral, Daily PRN, Nghia Pryor MD simethicone (MYLICON) chewable tablet 80 mg, 80 mg, Per Tube, BID PRN, Marlee Bradley MD, 80 mg at11/20/222013 tamsulosin (FLOMAX) 24 hr capsule 0.4 mg, 0.4 mg, Enteral, After Breakfast, Nghia Pryor MD, 0.4 mg at 11/22/22 0831 triamcinolone (KENALOG) 0.1 % ointment, , Apply externally, BID PRN, Nghia Pryor MD, Given at 11/20/222014 verapamil (CALAN) tablet 40 mg, 40 mg, Enteral, Q8H SENDY, Nghia Pryor MD, 40 mg at 11/22/22 0509 Warfarin Per Policy, , Does not apply, Daily, Nghia Pryor MD warfarin tablet 5 mg, 5 mg, Oral, Daily, Nghia Pryor MD, 5 mg at 11/21/22 1701 Review of Systems: Review of Systems Constitutional: Negative for appetite change. HENT: Negative for congestion. Respiratory: Negative for shortness of breath. Cardiovascular: Positive for leg swelling. Genitourinary: Negative for flank pain. Musculoskeletal: Negative for arthralgias and joint swelling. Neurological: Negative for headaches. Psychiatric/Behavioral: The patient is nervous/anxious. Physical Exam Vitals: 11/22/22 0702 BP: 106/64 Pulse: 83 Resp: 18 Temp: 98.2 ??F (36.8 ??C) SpO2: 96% Physical Exam Constitutional: General: She is not in acute distress. HENT: Head: Atraumatic. Eyes: Conjunctiva/sclera: Conjunctivae normal. Cardiovascular: Rate and Rhythm: Normal rate. Pulmonary: Effort: Pulmonary effort is normal. Abdominal: General: There is no distension. Skin: Findings: No erythema. Neurological: Coordination: Coordination abnormal. Neurologic Exam Lab Data Reviewed current lab results available to me today. Lab Results Component Value Date WBC 8.1 11/20/2022 HGB 10.6 (L) 11/20/2022 HCT 33.6 (L) 11/20/2022 MCV 94.1 11/20/2022 PLT 522 (H) 11/20/2022 Lab Results Component Value Date GLUCOSE 114 (H) 11/20/2022 CALCIUM 9.2 11/20/2022 NA 141 11/20/2022 K 3.8 11/20/2022 CO2 26 11/20/2022 CL 105 11/20/2022 BUN 21 (H) 11/20/2022 CREATININE 0.77 11/20/2022 ANIONGAP 10 11/20/2022 Imaging Reviewed current imaging results available to me today. XR abdomen 1 vws Result Date: 11/19/2022 NARRATIVE: Procedure: XR ABDOMEN KUB Exam Date: 11/19/2022 9:38 AM Location: [facility] Indication: abdominal fullness, reflux. Patient on peg tube feeding FINDINGS/IMPRESSION: Air is seen throughout the colonic structures. No dilated bowel loops are identified. There is no evidence tosuggest obstruction. There is no gross free intraperitoneal air. There does appear to be a gastrostomy tube superimposing the stomach. > Interpreting Provider: Rebel Hernandez MD on 11/19/2022 9:[address] head WO contrast Result Date: 11/19/2022 NARRATIVE: Procedure: CT HEAD WO CONTRAST Exam Date: 11/19/2022 9:31 AM Location: [facility] CT head without IV contrast INDICATION: worsening pain TECHNIQUE: CT examination of the head was performed from the base of the skull through the vertex using multiple axial images without IV contrast. FINDINGS: No old studies are available for comparison purposes. VIZ AI was utilized. Patient is status post right-sided craniectomy. There is extensive encephalomalacia involving the right frontal lobe with with some minimal involvement of the temporal and parietal lobe. There is no acute infarct. There is no mass. There is no hemorrhage. There are no extra-axial fluid collections. There is no midline shift. IMPRESSION: IMPRESSION: Right frontal craniectomy with extensive encephalomalacia involving the right frontal lobe as well as some involvement of the parietal and temporal lobes. > Interpreting Provider: Rebel Hernandez MD on 11/19/2022 9:36 AM Assessment & Plan: Consuelo Darby is a 42 y.o. female patient with Cerebrovascular accident functional impairment for rehab Cerebrovascular accident PT, OT for gait training and ADL training, Nursing for bowel and bladder care. Speech therapy for swallow evaluation and cognitive evaluation. Acute R MCA CVA Left dense hemiplegia LUE / LLE : 0/5 Left face droop s/p TNK and MT and TICI2b revascularization on 10/19. cerebral edema and midline shift s/p hemicraniectomy 10/20/22 Helmet Incision care R iliac and common femoral artery occlusion 10/30: R common femoral thrombectomy and patch angioplasty On Warfarin # Dysphagia: Ice chips PRN Tube feeds Dysarthria NPO -- glenis PEG fluid collection: TTE showed mobile aortic valve vegetation. IV abxs HTN Continue metoprolol , verapamil # headaches: On Tylenol and Oxy PRN Pian control # Neurogenic bladder: Voiding trials Dced puentes on 11/21 Retaining urine needing IC Urology consult Skin/Wounds: - Skin integrity and Pressure ulcer prevention: frequent repositioning and adequate pressure relief. Maintain clean, dry skin. If needed, q2 hour turns when in bed and regular skin checks, application of protective barrier cream, toileting schedule. Wound RN consult Bowel & Bladder - monitor bowel movement - adjust scheduled and PRN bowel regimen as needed - monitor for adequate urinary output - should suspicion for urinary retention arise, PVR of random bladder scan will be performed for further assessment Continue current medical management. RECOMMENDATIONS At the current time, this inpatient hospital rehabilitation stay is medically necessary to achieve important health and functional goals. The patient requires frequent physician visits, 24-hour rehabilitation nursing, and a coordinated intensive rehabilitation program as described above to address complex medical, nursing, and rehabilitation needs. Continue inpatient comprehensive interdisciplinary rehabilitation to address strengthening, mobility skills, self care, cognitive functioning, speech, communication and swallowing needs. The patient continues to require the interdisciplinary team approach and 24 hour monitoring. DIET: Dietary Orders (From admission, onward) Start Ordered 11/17/221745 NPO Diet, Tube Feeding No Tray Strict NPO; Jevity 1.5; Tube Feeding Continuous rate (mL/hr): 50; Tube Feeding water flush (mL): 150; Water Flush type: Water; Water flush frequency: Every 4 hours Diet effective now End/Expires: Until Specified Question Answer Comment NPO Status: Strict NPO Tube Feeding Formula: Jevity 1.5 Tube Feeding Continuous rate (mL/hr): 50 Tube Feeding water flush (mL): 150 Water Flush type: Water Water flush frequency: Every [address] order in third green party system. Done 11/17/22 1749 Patient Active Problem List Diagnosis Cerebrovascular accident Hypertension CHIN: YAMILETH FRIAS MD * Nghia Pryor MD - 11/21/2022 10:26 PM CDT HOSPITALIST PROGRESS NOTE Patient Name: Consuelo Darby : 1980 Medical Record: [id number] ATTENDING Yamileth Frias MD SUBJECTIVE 11/19 The patient is being seen for follow-up of Cerebrovascular accident. BP, BS , HR, labs, strength. .Chief Complaint CT head ok Headache much better Got upto chair without helmet =did ok Working on better helmet Consider spinal headache if recurs- d/w dr Villagran strength improving, able to do therapy ok. No chest pain, no SOB, no dizziness, no palpitations, no new neurologic symptoms. No cough, No nausea or vomiting, No abdominal pain. History also obtained from Nurse and staff about how the patient did overnight and during the day strength improving, able to do therapy ok. 11/20 Patient seen an examined Doing alright No new issues to report Vitals reviewed 11/21 Patient seen and examined earlier No new issues to report Vitals reviewed Resting comfortably BRIEF HISTORY The patient is a 42 y.o. y/o female with history of HTN, GERD, presented tO ED with new left sided weakness and slurred speech Diagnosed with acute CVA s/p TNK and m1 occlusion S/P MT . c/b R iliac and common femoral artery occlusion s/p thrombectomy. Developed Fever: consulted ID, broaden abx, Cxs. - MRI brain w/wo done (11/10): cortical enhancement along the right frontal parietal and temporal regions 2/2 infarct progression but can't rule out cerebritis or infections.however LP neg. Also had glenis PEG fluid collection: Improved on abx - Urology replaced puentes (11/09-) Extubated, now on RA HOME Medications Prior to Admission medications Medication Sig Start Date End Date Taking? Authorizing Provider cetirizine (ZyrTEC) 10 MG tablet Take 1 tablet (10 mg total) by mouth in the morning. Yes Historical Provider, omeprazole (PriLOSEC) 20 MG capsule Take 1 capsule (20 mg total) by mouth in the morning. Yes Historical Provider, amitriptyline (ELAVIL) 50 MG tablet 2 tablets (100 mg total) nightly. Historical Provider, CURRENT Medications Current Facility-Administered Medications: acetaminophen (TYLENOL) tablet 500 mg, 500 mg, Per Tube, Q6H PRN, Nghia Pryor MD, 500 mg at 11/21/222054 bisacodyl (DULCOLAX) suppository 10 mg, 10 mg, Rectal, Daily PRN, Nghia Pryor MD cholecalciferol (VITAMIN D3) tablet 2,000 Units, 2,000 Units, Per Tube, Once a day, Nghia Pryor MD, 2,000 Units at 11/21/22824 doxycycline (VIBRAMYCIN/MONODOX) capsule 100 mg, 100 mg, Enteral, 2 times per day, Manuel EnglishD, 100 mg at 11/21/222054 enoxaparin (LOVENOX) syringe 100 mg, 100 mg, Subcutaneous, Q12H SENDY, Nhgia Pryor MD, 100 mg at 11/21/222054 guaiFENesin (ROBITUSSIN) 100 MG/5ML liquid 10 mL, 10 mL, Enteral, BID PRN, Nghia Pryor MD loratadine (CLARITIN) tablet 10 mg, 10 mg, Enteral, Once a day, Nghia Pryor MD, 10 mg at 11/21/22823 meropenem (MERREM) 2 g in sodium chloride 0.9 % 140 mL IVPB, 2 g, Intravenous, Q8H, Nghia Pryor MD, 2 g at 11/21/222053 metoprolol tartrate (LOPRESSOR) tablet 25 mg, 25 mg, Enteral, 2 times per day, Nghia Pryor MD, 25 mg at 11/21/222054 ondansetron ODT (ZOFRAN-ODT) disintegrating tablet 4 mg, 4 mg, Per Tube, Q6H PRN, Marlee Bradley MD, 4 mg at 11/20/221158 oxyCODONE (ROXICODONE) immediate release tablet 5 mg, 5 mg, Enteral, Q4H PRN, Marlee Bradley MD, 5mg at 11/21/22 1311 pantoprazole-sodium bicarbonate 2mg/ml oral liquid 40 mg, 40 mg, Per Tube, Daily bef breakfast, Marlee Bradley MD, 40 mg at 11/21/22 0533 senna-docusate (SENOKOT-S) 8.6-50 MG tablet 2 tablet, 2 tablet, Enteral, Daily PRN, Nghia Pryor MD simethicone (MYLICON) chewable tablet 80 mg, 80 mg, Per Tube, BID PRN, Marlee Bradley MD, 80 mg at11/20/222013 tamsulosin (FLOMAX) 24 hr capsule 0.4 mg, 0.4 mg, Enteral, After Breakfast, Nghia Pryor MD, 0.4 mg at 11/21/22 08 triamcinolone (KENALOG) 0.1 % ointment, , Apply externally, BID PRN, Nghia Pryor MD, Given at 11/20/222014 verapamil (CALAN) tablet 40 mg, 40 mg, Enteral, Q8H SENDY, Nghia Pryor MD, 40 mg at 11/21/22 2203 Warfarin Per Policy, , Does not apply, Daily, Nghia Pryor MD warfarin tablet 5 mg, 5 mg, Oral, Daily, Nghia Pryor MD, 5 mg at 11/21/22 1701 DATA Vitals: 11/20/22 1356 11/20/22200211/21/22 0817 11/21/22 1933 BP: 115/74 119/76 114/61 108/74 Pulse: 80 79 85 75 Resp: 17 16 17 Temp: 97.4 ??F (36.3 ??C) 96.8 ??F (36 ??C) 97.7 ??F (36.5 ??C) TempSrc: Axillary Skin Oral SpO2: 94% 95% 96% Weight: Height: Weights (last 3 days) Date/Time Weight 11/18/22 1816 198 lb (89.8 kg) @ANTICOAGSUMMARY@ @FLOWDATE(2706:LAST)@ Intake/Output Summary (Last 24 hours) at 11/21/20222225 Last data filed at 11/21/2022 2158 Gross per 24 hour Intake 150 ml Output 550 ml Net -400 ml PHYSICAL EXAM General appearance: awake, alert, cooperative, no distress HEENT: Normocephalic, No icterus, No oral lesions, Oral and nasal mucosa moist Neck: Supple, no lymphadenopathy Eyes: EOMI, Conjunctiva normal, No discharge Cardiovascular: Normal heart rate, Normal rhythm, No murmurs, No rubs, No gallops Respiratory: Normal breath sounds, No respiratory distress, No wheezing, No rhonchi, No rales, No chest tenderness. GI: Bowel sounds normal, Soft, No tenderness, No rebound or guarding, No masses. Abdomen: soft without mass, non-tender, with normal bowel sounds Extremities: no clubbing, cyanosis or edema, no calf tenderness Musculoskeletal:no swelling of joints.no redness Psychologic: Mood ok, no suicidal ideation. Skin: No rash. 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 LABS CBC with Differential: Lab Results Component Value Date WBC 8.1 11/20/2022 HGB 10.6 (L) 11/20/2022 HCT 33.6 (L) 11/20/2022 PLT 522 (H) 11/20/2022 MCV 94.1 11/20/2022 MCH 29.7 11/20/2022 MCHC 31.5 11/20/2022 RDW 16.0 (H) 11/20/2022 [ BMP: Lab Results Component Value Date NA 141 11/20/2022 K 3.8 11/20/2022 CL 105 11/20/2022 CO2 26 11/20/2022 BUN 21 (H) 11/20/2022 CREATININE 0.77 11/20/2022 GLUCOSE 114 (H) 11/20/2022 CALCIUM 9.2 11/20/2022 ANIONGAP 10 11/20/2022 MG/PHOS: No results found for: MG, PHOS CKMB: No components found for: CKMB;2 PT/INR: Lab Results Component Value Date INR 1.3 (H) 11/21/2022 BNP: No results found for: BNP Last 3 Troponin: No components found for: TROPONINI;3 U/A: No results found for: COLORU, CLARITYU, GLUCOSEU, BILIRUBINUR, KETONESU, SPECGRAV, BLOODU, PHUR, UROBILINOGEN, NITRITE, LEUKOCYTESUR, MUCUS, RBCUA, WBCUA CMP: Lab Results Component Value Date NA 141 11/20/2022 K 3.8 11/20/2022 CL 105 11/20/2022 CO2 26 11/20/2022 BUN 21 (H) 11/20/2022 CREATININE 0.77 11/20/2022 GLUCOSE 114 (H) 11/20/2022 CALCIUM 9.2 11/20/2022 ANIONGAP 10 11/20/2022 LFT's: No results found for: ALB, PROT Ionized Calcium: No components found for: IONCA ABG: No results found for: PHART, ZPJ9SCO, PO2ART, DFQ9CYX, BEART, H4XEECVN HgBA1c: No results found for: HGBA1C Lipid Panel: No results found for: CHOL, TRIG, HDL TSH: No results found for: TSH Lab Results Component Value Date GLUCOSE 114 (H) 11/20/2022 BUN 21 (H) 11/20/2022 CREATININE 0.77 11/20/2022 NA 141 11/20/2022 K 3.8 11/20/2022 CL 105 11/20/2022 CO2 26 11/20/2022 CALCIUM 9.2 11/20/2022 @RESU CBC: Recent Labs Lab Units 11/20/22 0740 WBC X(10)9/L BLOOD x10E9/L 8.1 HGB GM/DL BLOOD gm/dL 10.6* PLT CT X(10)9/L BLOOD x10E9/L 522* MCV FL BLOOD fl 94.1 BMP: Recent Labs Lab Units 11/20/22 0740 SODIUM MMOL/L BLOOD mmol/L 141 POTASSIUM MMOL/L BLOOD mmol/L 3.8 CHLORIDE mmol/L 105 CO2 mmol/L 26 BUN MG/DL BLOOD mg/dL 21* CREATININE mg/dL 0.77 GLUCOSE MG/DL BLOOD mg/dL 114* CALCIUM MG/DL BLOOD mg/dL 9.2 I reviewed the EKG tracing/Xray Recent Labs Lab Units 11/20/22 0740 SODIUM MMOL/L BLOOD mmol/L 141 POTASSIUM MMOL/L BLOOD mmol/L 3.8 CHLORIDE mmol/L 105 CO2 mmol/L 26 BUN MG/DL BLOOD mg/dL 21* CREATININE mg/dL 0.77 GLUCOSE MG/DL BLOOD mg/dL 114* CALCIUM MG/DL BLOOD mg/dL 9.2 ANION GAP BLOOD mmol/L 10 ASSESSMENT AND PLAN Principal Problem: Cerebrovascular accident Acute R MCA CVA Left hemiplegia /p TNK and MT and TICI2b revascularization on 10/19. Developed MCA syndrome s/p hemicrani. 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 - MRI brain w/wo done (11/10): cortical enhancement along the right frontal parietal and temporal regions 2/2 infarct progression but can't rule out cerebritis or infections.LP not concerning, however. -- glenis PEG fluid collection: Improved on abx - Urology replaced puentes (11/09-) TTE showed mobile aortic valve vegetation. IV abxs HTN Continue meds Migraine without aura Pian control GERD PPI Oral contraceptive use DVT Prophylaxis Obesity BMI 36 Nutrition consult Abn LFT Check hep screen Watch with statin D Pain management Today's pain score FEN. Nutrition consult for evaluation of nutritional status and the best diet. And for BMI evaluation and education regarding maintaining a healthy BMI Bladder management Voiding ok Bowel management . Titrate bowel medications for constipation/diarrhea. Skin. Nursing to address skin care throughout stay. Turn every 2 hrs Sleep. Monitor sleep-wake cycle. High Fall risk- Fall precautions GI Prophylaxis: DVT Prophylaxis: Full Resuscitation D/W patient , and attending physician about test results and treatment plan .No family in the room.Patient requiring monitoring of BP and HR while doing 3 hour intensive exercises to avoid fluctuations and hypotension . Aswell as monitoring of nutritional and fluid status , by weights, leg edema .Notified staff and patient to notify me of any change inconditions or new problems * Yamileth Frias MD - 11/21/2022 11:23 AM CDT PM&R PROGRESS NOTE This is Face to Face Visit note Consuelo R Kvale is a 42 y.o. female patient. started working with therapy, pain well controlled Slow progress REVIEW OF FUNCTIONAL STATUS SM Functional Status PT Data (since 11/18/2022) None BED MOBILITY: Sit to/from supine: unsafe to attempt due to pain and decreased tolerance to upright position. Rolling with Mod-MaxA of two people TRANSFERS Sit to/from stand: unsafe to attempt at this time due to pain and mobility limitations Stand pivot: unsafe to attempt at this time due to pain and mobility limitations Transfers: dependent via little lift bed<>wc Car transfer: unsafe to attempt at this time due to pain and mobility limitations SM Functional Status OT Data (since 11/18/2022) None Patient Active Problem List Diagnosis Cerebrovascular accident Hypertension Past Medical History: Diagnosis Date Gastroesophageal reflux disease Hypertension Migraine Current Facility-Administered Medications: acetaminophen (TYLENOL) tablet 500 mg, 500 mg, Per Tube, Q6H PRN, Nghia Pryor MD, 500 mg at 11/20/22 0610 bisacodyl (DULCOLAX) suppository 10 mg, 10 mg, Rectal, Daily PRN, Nghia Pryor MD cholecalciferol (VITAMIN D3) tablet 2,000 Units, 2,000 Units, Per Tube, Once a day, Nghia Pryor MD, 2,000 Units at 11/21/22 0825 doxycycline (VIBRAMYCIN/MONODOX) capsule 100 mg, 100 mg, Enteral, 2 times per day, Olinda Peralta PharmD, 100 mg at 11/21/22 0825 enoxaparin (LOVENOX) syringe 100 mg, 100 mg, Subcutaneous, Q12H SENDY, Nghia Pryor MD, 100 mg at 11/21/22 0825 guaiFENesin (ROBITUSSIN) 100 MG/5ML liquid 10 mL, 10 mL, Enteral, BID PRN, Nghia Pryor MD loratadine (CLARITIN) tablet 10 mg, 10 mg, Enteral, Once a day, Nghia Pryor MD, 10 mg at 11/21/22 0824 meropenem (MERREM) 2 g in sodium chloride 0.9 % 140 mL IVPB, 2 g, Intravenous, Q8H, Nghia Pryor MD, 2 g at 11/21/22 0411 metoprolol tartrate (LOPRESSOR) tablet 25 mg, 25 mg, Enteral, 2 times per day, Nghia Pryor MD, 25 mg at 11/21/22 0825 ondansetron ODT (ZOFRAN-ODT) disintegrating tablet 4 mg, 4 mg, Per Tube, Q6H PRN, Marlee Bradley MD, 4 mg at 11/20/22 1159 oxyCODONE (ROXICODONE) immediate release tablet 5 mg, 5 mg, Enteral, Q4H PRN, Marlee Bradley MD, 5mg at 11/21/22 0115 pantoprazole-sodium bicarbonate 2mg/ml oral liquid 40 mg, 40 mg, Per Tube, Daily bef breakfast, Marlee Bradley MD, 40 mg at 11/21/22 0533 senna-docusate (SENOKOT-S) 8.6-50 MG tablet 2 tablet, 2 tablet, Enteral, Daily PRN, Nghia Pryor MD simethicone (MYLICON) chewable tablet 80 mg, 80 mg, Per Tube, BID PRN, Marlee Bradley MD, 80 mg at11/20/222013 tamsulosin (FLOMAX) 24 hr capsule 0.4 mg, 0.4 mg, Enteral, After Breakfast, Nghia Pryor MD, 0.4 mg at 11/21/22 08 triamcinolone (KENALOG) 0.1 % ointment, , Apply externally, BID PRN, Nghia Pryor MD, Given at 11/20/222014 verapamil (CALAN) tablet 40 mg, 40 mg, Enteral, Q8H SENDY, Nghia Pryor MD, 40 mg at 11/21/22 0524 Warfarin Per Policy, , Does not apply, Daily, Nghia Pryor MD warfarin tablet 5 mg, 5 mg, Oral, Daily, Nghia Pryor MD Review of Systems: Review of Systems Constitutional: Negative for appetite change. HENT: Negative for congestion. Respiratory: Negative for shortness of breath. Cardiovascular: Positive for leg swelling. Genitourinary: Negative for flank pain. Musculoskeletal: Negative for arthralgias and joint swelling. Neurological: Negative for headaches. Psychiatric/Behavioral: The patient is nervous/anxious. Physical Exam Vitals: 11/21/22 0817 BP: 114/61 Pulse: 85 Resp: 16 Temp: 96.8 ??F (36 ??C) SpO2: 95% Physical Exam Constitutional: General: She is not in acute distress. HENT: Head: Atraumatic. Eyes: Conjunctiva/sclera: Conjunctivae normal. Cardiovascular: Rate and Rhythm: Normal rate. Pulmonary: Effort: Pulmonary effort is normal. Abdominal: General: There is no distension. Skin: Findings: No erythema. Neurological: Coordination: Coordination abnormal. Neurologic Exam Lab Data Reviewed current lab results available to me today. Lab Results Component Value Date WBC 8.1 11/20/2022 HGB 10.6 (L) 11/20/2022 HCT 33.6 (L) 11/20/2022 MCV 94.1 11/20/2022 PLT 522 (H) 11/20/2022 Lab Results Component Value Date GLUCOSE 114 (H) 11/20/2022 CALCIUM 9.2 11/20/2022 NA 141 11/20/2022 K 3.8 11/20/2022 CO2 26 11/20/2022 CL 105 11/20/2022 BUN 21 (H) 11/20/2022 CREATININE 0.77 11/20/2022 ANIONGAP 10 11/20/2022 Imaging Reviewed current imaging results available to me today. XR abdomen 1 vws Result Date: 11/19/2022 NARRATIVE: Procedure: XR ABDOMEN KUB Exam Date: 11/19/2022 9:38 AM Location: [facility] Indication: abdominal fullness, reflux. Patient on peg tube feeding FINDINGS/IMPRESSION: Air is seen throughout the colonic structures. No dilated bowel loops are identified. There is no evidence tosuggest obstruction. There is no gross free intraperitoneal air. There does appear to be a gastrostomy tube superimposing the stomach. > Interpreting Provider: Rebel Hernandez MD on 11/19/2022 9:[address] head WO contrast Result Date: 11/19/2022 NARRATIVE: Procedure: CT HEAD WO CONTRAST Exam Date: 11/19/2022 9:31 AM Location: [facility] CT head without IV contrast INDICATION: worsening pain TECHNIQUE: CT examination of the head was performed from the base of the skull through the vertex using multiple axial images without IV contrast. FINDINGS: No old studies are available for comparison purposes. VIZ AI was utilized. Patient is status post right-sided craniectomy. There is extensive encephalomalacia involving the right frontal lobe with with some minimal involvement of the temporal and parietal lobe. There is no acute infarct. There is no mass. There is no hemorrhage. There are no extra-axial fluid collections. There is no midline shift. IMPRESSION: IMPRESSION: Right frontal craniectomy with extensive encephalomalacia involving the right frontal lobe as well as some involvement of the parietal and temporal lobes. > Interpreting Provider: Rebel Hernandez MD on 11/19/2022 9:36 AM Assessment & Plan: Consuelo Darby is a 42 y.o. female patient with Cerebrovascular accident functional impairment for rehab Cerebrovascular accident PT, OT for gait training and ADL training, Nursing for bowel and bladder care. Speech therapy for swallow evaluation and cognitive evaluation. Acute R MCA CVA Left dense hemiplegia LUE / LLE : 0/5 Left face droop s/p TNK and MT and TICI2b revascularization on 10/19. cerebral edema and midline shift s/p hemicraniectomy 10/20/22 Helmet Incision care R iliac and common femoral artery occlusion 10/30: R common femoral thrombectomy and patch angioplasty On Warfarin # Dysphagia: Ice chips PRN Tube feeds Dysarthria NPO -- glenis PEG fluid collection: TTE showed mobile aortic valve vegetation. IV abxs HTN Continue metoprolol , verapamil # headaches: On Tylenol and Oxy PRN Pian control # Neurogenic bladder: Voiding trials today Dc puentes on 11/21 Skin/Wounds: - Skin integrity and Pressure ulcer prevention: frequent repositioning and adequate pressure relief. Maintain clean, dry skin. If needed, q2 hour turns when in bed and regular skin checks, application of protective barrier cream, toileting schedule. Wound RN consult Bowel & Bladder - monitor bowel movement - adjust scheduled and PRN bowel regimen as needed - monitor for adequate urinary output - should suspicion for urinary retention arise, PVR of random bladder scan will be performed for further assessment Continue current medical management. RECOMMENDATIONS At the current time, this inpatient hospital rehabilitation stay is medically necessary to achieve important health and functional goals. The patient requires frequent physician visits, 24-hour rehabilitation nursing, and a coordinated intensive rehabilitation program as described above to address complex medical, nursing, and rehabilitation needs. Continue inpatient comprehensive interdisciplinary rehabilitation to address strengthening, mobility skills, self care, cognitive functioning, speech, communication and swallowing needs. The patient continues to require the interdisciplinary team approach and 24 hour monitoring. DIET: Dietary Orders (From admission, onward) Start Ordered 11/17/221745 NPO Diet, Tube Feeding No Tray Strict NPO; Jevity 1.5; Tube Feeding Continuous rate (mL/hr): 50; Tube Feeding water flush (mL): 150; Water Flush type: Water; Water flush frequency: Every 4 hours Diet effective now End/Expires: Until Specified Question Answer Comment NPO Status: Strict NPO Tube Feeding Formula: Jevity 1.5 Tube Feeding Continuous rate (mL/hr): 50 Tube Feeding water flush (mL): 150 Water Flush type: Water Water flush frequency: Every [address] order in third green party system. 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 female who has been consulted for pharmacy warfarin dosing and monitoring for indication of embolic stroke. Labs: INR Date Value Ref Range Status 11/21/2022 1.3 (H) 0.9 - 1.1 Final 11/20/2022 1.2 (H) 0.9 - 1.1 Final 11/19/2022 1.2 (H) 0.9 - 1.1 Final 11/18/2022 1.2 (H) 0.9 - 1.1 Final HGB gm/dL Blood Date Value Ref Range Status 11/20/2022 10.6 (L) 12.0 - 15.6 gm/dL Final 11/18/2022 10.6 (L) 12.0 - 15.6 gm/dL Final HCT % Blood Date Value Ref Range Status 11/20/2022 33.6 (L) 35.9 - 45.5 % Final 11/18/2022 34.2 (L) 35.9 - 45.5 % Final Plt Ct X(10)9/L Blood Date Value Ref Range Status 11/20/2022 522 (H) 153 - 416 x10E9/L Final 11/18/2022 541 (H) 153 - 416 x10E9/L Final Current Facility-Administered Medications: acetaminophen (TYLENOL) tablet 500 mg, 500 mg, Per Tube, Q6H PRN, Nghia Pryor MD, 500 mg at 11/20/22 06 bisacodyl (DULCOLAX) suppository 10 mg, 10 mg, Rectal, Daily PRN, Nghia Pryor MD cholecalciferol (VITAMIN D3) tablet 2,000 Units, 2,000 Units, Per Tube, Once a day, Nghia Pryor MD, 2,000 Units at 11/21/22 08 doxycycline (VIBRAMYCIN/MONODOX) capsule 100 mg, 100 mg, Enteral, 2 times per day, Manuel EnglishD, 100 mg at 11/21/22 08 enoxaparin (LOVENOX) syringe 100 mg, 100 mg, Subcutaneous, Q12H SENDY, Nghia Pryor MD, 100 mg at 11/21/22 08 guaiFENesin (ROBITUSSIN) 100 MG/5ML liquid 10 mL, 10 mL, Enteral, BID PRN, Nghia Pryor MD loratadine (CLARITIN) tablet 10 mg, 10 mg, Enteral, Once a day, Nghia Pryor MD, 10 mg at 11/21/22 0824 meropenem (MERREM) 2 g in sodium chloride 0.9 % 140 mL IVPB, 2 g, Intravenous, Q8H, Nghia Pryor MD, 2 g at 11/21/22 0411 metoprolol tartrate (LOPRESSOR) tablet 25 mg, 25 mg, Enteral, 2 times per day, Nghia Pryor MD, 25 mg at 11/21/22 0825 ondansetron ODT (ZOFRAN-ODT) disintegrating tablet 4 mg, 4 mg, Per Tube, Q6H PRN, Marlee Bradley MD, 4 mg at 11/20/22 1159 oxyCODONE (ROXICODONE) immediate release tablet 5 mg, 5 mg, Enteral, Q4H PRN, Marlee Bradley MD, 5mg at 11/21/22 0115 pantoprazole-sodium bicarbonate 2mg/ml oral liquid 40 mg, 40 mg, Per Tube, Daily bef breakfast, Marlee Bradley MD, 40 mg at 11/21/22 0533 senna-docusate (SENOKOT-S) 8.6-50 MG tablet 2 tablet, 2 tablet, Enteral, Daily PRN, Nghia Pryor MD simethicone (MYLICON) chewable tablet 80 mg, 80 mg, Per Tube, BID PRN, Marlee Bradley MD, 80 mg at11/20/222013 tamsulosin (FLOMAX) 24 hr capsule 0.4 mg, 0.4 mg, Enteral, After Breakfast, Nghia Pryor MD, 0.4 mg at 11/21/22824 triamcinolone (KENALOG) 0.1 % ointment, , Apply externally, BID PRN, Nghia Pryor MD, Given at 11/20/222014 verapamil (CALAN) tablet 40 mg, 40 mg, Enteral, Q8H SENDY, Nghia Pryor MD, 40 mg at 11/21/22 0524 Warfarin Per Policy, , Does not apply, Daily, Nghia Pryor MD warfarin tablet 5 mg, 5 mg, Oral, Daily, Nghia Pryor MD Assessment: Warfarin Indication: ischemic stroke due to septic emboli; MT c/b R iliac and common femoral arteryocclusion s/p thrombectomy. INR Goal: 2-3 Today's INR is 1.3 and is Subtherapeutic. Bridging Therapy: Yes, describe: Lovenox 100mg BID until therapeutic Risk Factors for Bleeding: Lovenox Pertinent Medication Related to Warfarin: lovenox, doxycyline, meropenem Plan: 1. Administer warfarin 5mg by mouth daily for 2 days 2. Check INR on . Pharmacy will follow up with INR recheck and order subsequent warfarin doses pending INR results. 3.The patient will continue to be monitored by the pharmacy department for the duration of the length of stay for assurance of medication safety and efficacy. SANDRA LAND, PharmD 10:47 AM CDT 11/21/22 * Nghia Pryor MD - 11/20/2022 8:24 PM CDT HOSPITALIST PROGRESS NOTE Patient Name: Consuelo Darby : 1980 Medical Record: [id number] ATTENDING Yamileth Frias MD SUBJECTIVE 11/19 The patient is being seen for follow-up of Cerebrovascular accident. BP, BS , HR, labs, strength. .Chief Complaint CT head ok Headache much better Got upto chair without helmet =did ok Working on better helmet Consider spinal headache if recurs- d/w dr Villagran strength improving, able to do therapy ok. No chest pain, no SOB, no dizziness, no palpitations, no new neurologic symptoms. No cough, No nausea or vomiting, No abdominal pain. History also obtained from Nurse and staff about how the patient did overnight and during the day strength improving, able to do therapy ok. 11/20 Patient seen an examined Doing alright No new issues to report Vitals reviewed BRIEF HISTORY The patient is a 42 y.o. y/o female with history of HTN, GERD, presented tO ED with new left sided weakness and slurred speech Diagnosed with acute CVA s/p TNK and m1 occlusion S/P MT . c/b R iliac and common femoral artery occlusion s/p thrombectomy. Developed Fever: consulted ID, broaden abx, Cxs. - MRI brain w/wo done (11/10): cortical enhancement along the right frontal parietal and temporal regions 2/2 infarct progression but can't rule out cerebritis or infections.however LP neg. Also had glenis PEG fluid collection: Improved on abx - Urology replaced puentes (11/09-) Extubated, now on RA HOME Medications Prior to Admission medications Medication Sig Start Date End Date Taking? Authorizing Provider cetirizine (ZyrTEC) 10 MG tablet Take 1 tablet (10 mg total) by mouth in the morning. Yes Historical Provider, omeprazole (PriLOSEC) 20 MG capsule Take 1 capsule (20 mg total) by mouth in the morning. Yes Historical Provider, amitriptyline (ELAVIL) 50 MG tablet 2 tablets (100 mg total) nightly. Historical Provider, CURRENT Medications Current Facility-Administered Medications: acetaminophen (TYLENOL) tablet 500 mg, 500 mg, Per Tube, Q6H PRN, Nghia Pryor MD, 500 mg at 11/20/22 0610 bisacodyl (DULCOLAX) suppository 10 mg, 10 mg, Rectal, Daily PRN, Nghia Pryor MD cholecalciferol (VITAMIN D3) tablet 2,000 Units, 2,000 Units, Per Tube, Once a day, Nghia Pryor MD, 2,000 Units at 11/20/22 0830 doxycycline (VIBRAMYCIN/MONODOX) capsule 100 mg, 100 mg, Enteral, 2 times per day, Manuel EnglishD, 100 mg at 11/20/222013 enoxaparin (LOVENOX) syringe 100 mg, 100 mg, Subcutaneous, Q12H SENDY, Nghia Pryor MD, 100 mg at 11/20/222014 guaiFENesin (ROBITUSSIN) 100 MG/5ML liquid 10 mL, 10 mL, Enteral, BID PRN, Nghia Pryor MD loratadine (CLARITIN) tablet 10 mg, 10 mg, Enteral, Once a day, Nghia Pryor MD, 10 mg at 11/20/22 0831 meropenem (MERREM) 2 g in sodium chloride 0.9 % 140 mL IVPB, 2 g, Intravenous, Q8H, Nghia Pryor MD, 2 g at 11/20/222015 metoprolol tartrate (LOPRESSOR) tablet 25 mg, 25 mg, Enteral, 2 times per day, Nghia Pryor MD, 25 mg at 11/20/222014 ondansetron ODT (ZOFRAN-ODT) disintegrating tablet 4 mg, 4 mg, Per Tube, Q6H PRN, Marlee Bradley MD, 4 mg at 11/20/22 1159 oxyCODONE (ROXICODONE) immediate release tablet 5 mg, 5 mg, Enteral, Q4H PRN, Marlee Bradley MD, 5mg at 11/20/222012 pantoprazole-sodium bicarbonate 2mg/ml oral liquid 40 mg, 40 mg, Per Tube, Daily bef breakfast, Marlee Bradley MD, 40 mg at 11/20/22 0606 senna-docusate (SENOKOT-S) 8.6-50 MG tablet 2 tablet, 2 tablet, Enteral, Daily PRN, Nghia Pryor MD simethicone (MYLICON) chewable tablet 80 mg, 80 mg, Per Tube, BID PRN, Marlee Bradley MD, 80 mg at11/20/222013 tamsulosin (FLOMAX) 24 hr capsule 0.4 mg, 0.4 mg, Enteral, After Breakfast, Nghia Pryor MD, 0.4 mg at 11/20/22 0830 triamcinolone (KENALOG) 0.1 % ointment, , Apply externally, BID PRN, Nghia Pryor MD, Given at 11/20/222014 verapamil (CALAN) tablet 40 mg, 40 mg, Enteral, Q8H SENDY, Nghia Pryor MD, 40 mg at 11/20/22 1305 Warfarin Per Policy, , Does not apply, Daily, Nghia Pryor MD DATA Vitals: 11/20/22 0606 11/20/22 0736 11/20/22 1031 11/20/22 1356 BP: 112/73 114/73 126/84 115/74 Pulse: 93 80 Resp: 17 Temp: 97.8 ??F (36.6 ??C) TempSrc: Oral SpO2: 94% Weight: Height: Weights (last 3 days) Date/Time Weight Height BSA (Calculated - sq m) 11/18/22 1816 198 lb (89.8 kg) -- -- 11/17/22 1720 198 lb (89.8 kg) 5' 4 (1.626 m) 2.01 sq meters @ANNA MARIE@ @FLOWDATE(2706:LAST)@ Intake/Output Summary (Last 24 hours) at 11/20/20222023 Last data filed at 11/20/2022 1818 Gross per 24 hour Intake 530 ml Output 2750 ml Net -2220 ml PHYSICAL EXAM General appearance: awake, alert, cooperative, no distress HEENT: Normocephalic, No icterus, No oral lesions, Oral and nasal mucosa moist Neck: Supple, no lymphadenopathy Eyes: EOMI, Conjunctiva normal, No discharge Cardiovascular: Normal heart rate, Normal rhythm, No murmurs, No rubs, No gallops Respiratory: Normal breath sounds, No respiratory distress, No wheezing, No rhonchi, No rales, No chest tenderness. GI: Bowel sounds normal, Soft, No tenderness, No rebound or guarding, No masses. Abdomen: soft without mass, non-tender, with normal bowel sounds Extremities: no clubbing, cyanosis or edema, no calf tenderness Musculoskeletal:no swelling of joints.no redness Psychologic: Mood ok, no suicidal ideation. Skin: No rash. 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 LABS CBC with Differential: Lab Results Component Value Date WBC 8.1 11/20/2022 HGB 10.6 (L) 11/20/2022 HCT 33.6 (L) 11/20/2022 PLT 522 (H) 11/20/2022 MCV 94.1 11/20/2022 MCH 29.7 11/20/2022 MCHC 31.5 11/20/2022 RDW 16.0 (H) 11/20/2022 [ BMP: Lab Results Component Value Date NA 141 11/20/2022 K 3.8 11/20/2022 CL 105 11/20/2022 CO2 26 11/20/2022 BUN 21 (H) 11/20/2022 CREATININE 0.77 11/20/2022 GLUCOSE 114 (H) 11/20/2022 CALCIUM 9.2 11/20/2022 ANIONGAP 10 11/20/2022 MG/PHOS: No results found for: MG, PHOS CKMB: No components found for: CKMB;2 PT/INR: Lab Results Component Value Date INR 1.2 (H) 11/20/2022 BNP: No results found for: BNP Last 3 Troponin: No components found for: TROPONINI;3 U/A: No results found for: COLORU, CLARITYU, GLUCOSEU, BILIRUBINUR, KETONESU, SPECGRAV, BLOODU, PHUR, UROBILINOGEN, NITRITE, LEUKOCYTESUR, MUCUS, RBCUA, WBCUA CMP: Lab Results Component Value Date NA 141 11/20/2022 K 3.8 11/20/2022 CL 105 11/20/2022 CO2 26 11/20/2022 BUN 21 (H) 11/20/2022 CREATININE 0.77 11/20/2022 GLUCOSE 114 (H) 11/20/2022 CALCIUM 9.2 11/20/2022 ANIONGAP 10 11/20/2022 LFT's: No results found for: ALB, PROT Ionized Calcium: No components found for: IONCA ABG: No results found for: PHART, BTL0JVK, PO2ART, THS1JTT, BEART, [id number] HgBA1c: No results found for: HGBA1C Lipid Panel: No results found for: CHOL, TRIG, HDL TSH: No results found for: TSH Lab Results Component Value Date GLUCOSE 114 (H) 11/20/2022 BUN 21 (H) 11/20/2022 CREATININE 0.77 11/20/2022 NA 141 11/20/2022 K 3.8 11/20/2022 CL 105 11/20/2022 CO2 26 11/20/2022 CALCIUM 9.2 11/20/2022 @RESU CBC: Recent Labs Lab Units 11/20/22 0740 WBC X(10)9/L BLOOD x10E9/L 8.1 HGB GM/DL BLOOD gm/dL 10.6* PLT CT X(10)9/L BLOOD x10E9/L 522* MCV FL BLOOD fl 94.1 BMP: Recent Labs Lab Units 11/20/22 0740 SODIUM MMOL/L BLOOD mmol/L 141 POTASSIUM MMOL/L BLOOD mmol/L 3.8 CHLORIDE mmol/L 105 CO2 mmol/L 26 BUN MG/DL BLOOD mg/dL 21* CREATININE mg/dL 0.77 GLUCOSE MG/DL BLOOD mg/dL 114* CALCIUM MG/DL BLOOD mg/dL 9.2 I reviewed the EKG tracing/Xray Recent Labs Lab Units 11/20/22 0740 SODIUM MMOL/L BLOOD mmol/L 141 POTASSIUM MMOL/L BLOOD mmol/L 3.8 CHLORIDE mmol/L 105 CO2 mmol/L 26 BUN MG/DL BLOOD mg/dL 21* CREATININE mg/dL 0.77 GLUCOSE MG/DL BLOOD mg/dL 114* CALCIUM MG/DL BLOOD mg/dL 9.2 ANION GAP BLOOD mmol/L 10 ASSESSMENT AND PLAN Principal Problem: Cerebrovascular accident Acute R MCA CVA Left hemiplegia /p TNK and MT and TICI2b revascularization on 10/19. Developed MCA syndrome s/p hemicrani. 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 - MRI brain w/wo done (11/10): cortical enhancement along the right frontal parietal and temporal regions 2/2 infarct progression but can't rule out cerebritis or infections.LP not concerning, however. -- glenis PEG fluid collection: Improved on abx - Urology replaced puentes (11/09-) TTE showed mobile aortic valve vegetation. IV abxs HTN Continue meds Migraine without aura Pian control GERD PPI Oral contraceptive use DVT Prophylaxis Obesity BMI 36 Nutrition consult Abn LFT Check hep screen Watch with statin D Pain management Today's pain score FEN. Nutrition consult for evaluation of nutritional status and the best diet. And for BMI evaluation and education regarding maintaining a healthy BMI Bladder management Voiding ok Bowel management . Titrate bowel medications for constipation/diarrhea. Skin. Nursing to address skin care throughout stay. Turn every 2 hrs Sleep. Monitor sleep-wake cycle. High Fall risk- Fall precautions GI Prophylaxis: DVT Prophylaxis: Full Resuscitation D/W patient , and attending physician about test results and treatment plan .No family in the room.Patient requiring monitoring of BP and HR while doing 3 hour intensive exercises to avoid fluctuations and hypotension . Aswell as monitoring of nutritional and fluid status , by weights, leg edema .Notified staff and patient to notify me of any change inconditions or new problems * Sandraesther Land PharmD - 11/20/2022 2:49 PM CDT [facility] Pharmacy Note Pharmacy Consultation - Warfarin Dosing and Monitoring Consuelo Darby is a 42 y.o. female who has been consulted for pharmacy warfarin dosing and monitoring. Labs: INR Date Value Ref Range Status 11/20/2022 1.2 (H) 0.9 - 1.1 Final 11/19/2022 1.2 (H) 0.9 - 1.1 Final 11/18/2022 1.2 (H) 0.9 - 1.1 Final HGB gm/dL Blood Date Value Ref Range Status 11/20/2022 10.6 (L) 12.0 - 15.6 gm/dL Final 11/18/2022 10.6 (L) 12.0 - 15.6 gm/dL Final HCT % Blood Date Value Ref Range Status 11/20/2022 33.6 (L) 35.9 - 45.5 % Final 11/18/2022 34.2 (L) 35.9 - 45.5 % Final Plt Ct X(10)9/L Blood Date Value Ref Range Status 11/20/2022 522 (H) 153 - 416 x10E9/L Final 11/18/2022 541 (H) 153 - 416 x10E9/L Final Current Facility-Administered Medications: acetaminophen (TYLENOL) tablet 500 mg, 500 mg, Per Tube, Q6H PRN, Nghia Pryor MD, 500 mg at 11/20/22 0610 bisacodyl (DULCOLAX) suppository 10 mg, 10 mg, Rectal, Daily PRN, Nghia Pryor MD cholecalciferol (VITAMIN D3) tablet 2,000 Units, 2,000 Units, Per Tube, Once a day, Nghia Pryor MD, 2,000 Units at 11/20/22 0830 doxycycline (VIBRAMYCIN/MONODOX) capsule 100 mg, 100 mg, Enteral, 2 times per day, Manuel EnglishD, 100 mg at 11/20/22 0831 enoxaparin (LOVENOX) syringe 100 mg, 100 mg, Subcutaneous, Q12H SENDY, Nghia Pryor MD, 100 mg at 11/20/22 0830 guaiFENesin (ROBITUSSIN) 100 MG/5ML liquid 10 mL, 10 mL, Enteral, BID PRN, Nghia Pryor MD loratadine (CLARITIN) tablet 10 mg, 10 mg, Enteral, Once a day, Nghia Pryor MD, 10 mg at 11/20/22 0831 meropenem (MERREM) 2 g in sodium chloride 0.9 % 140 mL IVPB, 2 g, Intravenous, Q8H, Nghia Pryor MD, 2 g at 11/20/22 1230 metoprolol tartrate (LOPRESSOR) tablet 25 mg, 25 mg, Enteral, 2 times per day, Nghia Pryor MD, 25 mg at 11/20/22 0830 ondansetron ODT (ZOFRAN-ODT) disintegrating tablet 4 mg, 4 mg, Per Tube, Q6H PRN, Marlee Bradley MD, 4 mg at 11/20/22 1159 oxyCODONE (ROXICODONE) immediate release tablet 5 mg, 5 mg, Enteral, Q4H PRN, Marlee Bradley MD, 5mg at 11/20/22 09 pantoprazole-sodium bicarbonate 2mg/ml oral liquid 40 mg, 40 mg, Per Tube, Daily bef breakfast, Marlee Bradley MD, 40 mg at 11/20/22 0606 senna-docusate (SENOKOT-S) 8.6-50 MG tablet 2 tablet, 2 tablet, Enteral, Daily PRN, Nghia Pryor MD simethicone (MYLICON) chewable tablet 80 mg, 80 mg, Per Tube, BID PRN, Marlee Bradley MD, 80 mg at11/19/22 1159 tamsulosin (FLOMAX) 24 hr capsule 0.4 mg, 0.4 mg, Enteral, After Breakfast, Nghia Pryor MD, 0.4 mg at 11/20/22 0830 triamcinolone (KENALOG) 0.1 % ointment, , Apply externally, BID PRN, Nghia Pryor MD verapamil (CALAN) tablet 40 mg, 40 mg, Enteral, Q8H SENDY, Nghia Pryor MD, 40 mg at 11/20/22 1305 Warfarin Per Policy, , Does not apply, Daily, Nghia Pryor MD warfarin tablet 5 mg, 5 mg, Oral, Once, Nghia Pryor MD Assessment: Warfarin Indication: ischemic stroke due to septic emboli; MT c/b R iliac and common femoral arteryocclusion s/p thrombectomy. INR Goal: 2-3 Today's INR is 1.2 and is Subtherapeutic. Bridging Therapy: Yes, describe: Lovenox 100mg BID until therapeutic Risk Factors for Bleeding: Lovenox Pertinent Medication Related to Warfarin: lovenox, doxycyline, meropenem Plan: 1. Administer warfarin 5mg by mouth one time this evening 2. Check INR tomorrow. Pharmacy will follow up with INR recheck and order subsequent warfarin dosespending INR results. 3.The patient will continue to be monitored by the pharmacy department for the duration of the length of stay for assurance of medication safety and efficacy. SANDRA LAND, PharmD 2:48 PM CDT 11/20/22 * Yamileth Frias MD - 11/20/2022 9:52 AM CDT PM&R PROGRESS NOTE This is Face to Face Visit note Consuelo Darby is a 42 y.o. female patient. no acute events, no dizziness, working with therapy this morning Note: REVIEW OF FUNCTIONAL STATUS Functional Status PT Data (since 11/17/2022) None BED MOBILITY: Sit to/from supine: unsafe to attempt due to pain. Rolling with maximal assist of two people GAIT Unsafe to attempt ambulation 10, 50',150' and 10' on compliant surface due to pain and mobility limitations Retrieves object from floor in standing: Unsafe to retrieve object from due to pain and mobility limitations STAIRS Acscends/descends 1,4, 12 steps unsafe to attempt at this time due to pain and mobility limitations WHEELCHAIR MOBILITY Unsafe to attempt wheelchair mobility due to pain and unable to tolerate transfer out of bed. Functional Status OT Data (since 11/17/2022) None Patient Active Problem List Diagnosis Cerebrovascular accident Hypertension Past Medical History: Diagnosis Date Gastroesophageal reflux disease Hypertension Migraine Current Facility-Administered Medications: acetaminophen (TYLENOL) tablet 500 mg, 500 mg, Per Tube, Q6H PRN, Nghia Pryor MD, 500 mg at 11/20/22 0610 bisacodyl (DULCOLAX) suppository 10 mg, 10 mg, Rectal, Daily PRN, Nghia Pryor MD cholecalciferol (VITAMIN D3) tablet 2,000 Units, 2,000 Units, Per Tube, Once a day, Nghia Pryor MD, 2,000 Units at 11/20/22 08 doxycycline (VIBRAMYCIN/MONODOX) capsule 100 mg, 100 mg, Enteral, 2 times per day, Olinda Peralta PharmD, 100 mg at 11/20/22 08 enoxaparin (LOVENOX) syringe 100 mg, 100 mg, Subcutaneous, Q12H SENDY, Nghia Pryor MD, 100 mg at 11/20/22 08 guaiFENesin (ROBITUSSIN) 100 MG/5ML liquid 10 mL, 10 mL, Enteral, BID PRN, Nghia Pryor MD loratadine (CLARITIN) tablet 10 mg, 10 mg, Enteral, Once a day, Nghia Pryor MD, 10 mg at 11/20/22 0831 meropenem (MERREM) 2 g in sodium chloride 0.9 % 140 mL IVPB, 2 g, Intravenous, Q8H, Nghia Pryor MD, 2 g at 11/20/22 0402 metoprolol tartrate (LOPRESSOR) tablet 25 mg, 25 mg, Enteral, 2 times per day, Nghia Pryor MD, 25 mg at 11/20/22 0830 ondansetron ODT (ZOFRAN-ODT) disintegrating tablet 4 mg, 4 mg, Per Tube, Q6H PRN, Marlee Bradley MD, 4 mg at 11/20/22 1159 oxyCODONE (ROXICODONE) immediate release tablet 5 mg, 5 mg, Enteral, Q4H PRN, Marlee Bradley MD, 5mg at 11/20/22 09 pantoprazole-sodium bicarbonate 2mg/ml oral liquid 40 mg, 40 mg, Per Tube, Daily bef breakfast, Marlee Bradley MD, 40 mg at 11/20/22 0606 senna-docusate (SENOKOT-S) 8.6-50 MG tablet 2 tablet, 2 tablet, Enteral, Daily PRN, Nghia Pryor MD simethicone (MYLICON) chewable tablet 80 mg, 80 mg, Per Tube, BID PRN, Marlee Bradley MD, 80 mg at11/19/22 1159 tamsulosin (FLOMAX) 24 hr capsule 0.4 mg, 0.4 mg, Enteral, After Breakfast, Nghia Pryor MD, 0.4 mg at 11/20/22 0830 triamcinolone (KENALOG) 0.1 % ointment, , Apply externally, BID PRN, Nghia Pryor MD verapamil (CALAN) tablet 40 mg, 40 mg, Enteral, Q8H SENDY, Nghia Pryor MD, 40 mg at 11/20/22 0606 Warfarin Per Policy, , Does not apply, Daily, Nghia Pryor MD Review of Systems: Review of Systems Constitutional: Negative for appetite change. HENT: Negative for congestion. Respiratory: Negative for shortness of breath. Cardiovascular: Positive for leg swelling. Genitourinary: Negative for flank pain. Musculoskeletal: Negative for arthralgias and joint swelling. Neurological: Negative for headaches. Psychiatric/Behavioral: The patient is nervous/anxious. Physical Exam Vitals: 11/20/22 1031 BP: 126/84 Pulse: Resp: Temp: SpO2: Physical Exam Constitutional: General: She is not in acute distress. HENT: Head: Atraumatic. Eyes: Conjunctiva/sclera: Conjunctivae normal. Cardiovascular: Rate and Rhythm: Normal rate. Pulmonary: Effort: Pulmonary effort is normal. Abdominal: General: There is no distension. Skin: Findings: No erythema. Neurological: Coordination: Coordination abnormal. Neurologic Exam Lab Data Reviewed current lab results available to me today. Lab Results Component Value Date WBC 8.1 11/20/2022 HGB 10.6 (L) 11/20/2022 HCT 33.6 (L) 11/20/2022 MCV 94.1 11/20/2022 PLT 522 (H) 11/20/2022 Lab Results Component Value Date GLUCOSE 114 (H) 11/20/2022 CALCIUM 9.2 11/20/2022 NA 141 11/20/2022 K 3.8 11/20/2022 CO2 26 11/20/2022 CL 105 11/20/2022 BUN 21 (H) 11/20/2022 CREATININE 0.77 11/20/2022 ANIONGAP 10 11/20/2022 Imaging Reviewed current imaging results available to me today. XR abdomen 1 vws Result Date: 11/19/2022 NARRATIVE: Procedure: XR ABDOMEN KUB Exam Date: 11/19/2022 9:38 AM Location: [facility] Indication: abdominal fullness, reflux. Patient on peg tube feeding FINDINGS/IMPRESSION: Air is seen throughout the colonic structures. No dilated bowel loops are identified. There is no evidence tosuggest obstruction. There is no gross free intraperitoneal air. There does appear to be a gastrostomy tube superimposing the stomach. > Interpreting Provider: Rebel Hernandez MD on 11/19/2022 9:[address] head WO contrast Result Date: 11/19/2022 NARRATIVE: Procedure: CT HEAD WO CONTRAST Exam Date: 11/19/2022 9:31 AM Location: [facility] CT head without IV contrast INDICATION: worsening pain TECHNIQUE: CT examination of the head was performed from the base of the skull through the vertex using multiple axial images without IV contrast. FINDINGS: No old studies are available for comparison purposes. VIZ AI was utilized. Patient is status post right-sided craniectomy. There is extensive encephalomalacia involving the right frontal lobe with with some minimal involvement of the temporal and parietal lobe. There is no acute infarct. There is no mass. There is no hemorrhage. There are no extra-axial fluid collections. There is no midline shift. IMPRESSION: IMPRESSION: Right frontal craniectomy with extensive encephalomalacia involving the right frontal lobe as well as some involvement of the parietal and temporal lobes. > Interpreting Provider: Rebel Hernandez MD on 11/19/2022 9:36 AM Assessment & Plan: Consuelo Darby is a 42 y.o. female patient with Cerebrovascular accident functional impairment for rehab Cerebrovascular accident PT, OT for gait training and ADL training, Nursing for bowel and bladder care. Speech therapy for swallow evaluation and cognitive evaluation. Acute R MCA CVA Left dense hemiplegia LUE / LLE : 0/5 Left face droop s/p TNK and MT and TICI2b revascularization on 10/19. cerebral edema and midline shift s/p hemicraniectomy 10/20/22 Helmet Incision care R iliac and common femoral artery occlusion 10/30: R common femoral thrombectomy and patch angioplasty On Warfarin # Dysphagia: Tube feeds NPO -- glenis PEG fluid collection: TTE showed mobile aortic valve vegetation. IV abxs HTN Continue metoprolol , verapamil # headaches: On Tylenol and Oxy PRN Pian control Skin/Wounds: - Skin integrity and Pressure ulcer prevention: frequent repositioning and adequate pressure relief. Maintain clean, dry skin. If needed, q2 hour turns when in bed and regular skin checks, application of protective barrier cream, toileting schedule. Wound RN consult Bowel & Bladder - monitor bowel movement - adjust scheduled and PRN bowel regimen as needed - monitor for adequate urinary output - should suspicion for urinary retention arise, PVR of random bladder scan will be performed for further assessment Continue current medical management. RECOMMENDATIONS At the current time, this inpatient hospital rehabilitation stay is medically necessary to achieve important health and functional goals. The patient requires frequent physician visits, 24-hour rehabilitation nursing, and a coordinated intensive rehabilitation program as described above to address complex medical, nursing, and rehabilitation needs. Continue inpatient comprehensive interdisciplinary rehabilitation to address strengthening, mobility skills, self care, cognitive functioning, speech, communication and swallowing needs. The patient continues to require the interdisciplinary team approach and 24 hour monitoring. DIET: Dietary Orders (From admission, onward) Start Ordered 11/17/221745 NPO Diet, Tube Feeding No Tray Strict NPO; Jevity 1.5; Tube Feeding Continuous rate (mL/hr): 50; Tube Feeding water flush (mL): 150; Water Flush type: Water; Water flush frequency: Every 4 hours Diet effective now End/Expires: Until Specified Question Answer Comment NPO Status: Strict NPO Tube Feeding Formula: Jevity 1.5 Tube Feeding Continuous rate (mL/hr): 50 Tube Feeding water flush (mL): 150 Water Flush type: Water Water flush frequency: Every [address] order in third green party system. Done 11/17/22 1749 Patient Active Problem List Diagnosis Cerebrovascular accident Hypertension YAMILETH FRIAS MD * Marlee Bradley MD - 11/19/2022 9:16 PM CDT HOSPITALIST PROGRESS NOTE Patient Name: Consuelo Darby : 1980 Medical Record: [id number] ATTENDING Yamileth Frias MD SUBJECTIVE 11/19 The patient is being seen for follow-up of <principal problem not specified>. BP, BS , HR, labs, strength. .Chief Complaint CT head ok Headache much better Got upto chair without helmet =did ok Working on better helmet Consider spinal headache if recurs- d/w dr Villagran strength improving, able to do therapy ok. No chest pain, no SOB, no dizziness, no palpitations, no new neurologic symptoms. No cough, No nausea or vomiting, No abdominal pain. History also obtained from Nurse and staff about how the patient did overnight and during the day strength improving, able to do therapy ok. BRIEF HISTORY The patient is a 42 y.o. y/o female with history of HTN, GERD, presented tO ED with new left sided weakness and slurred speech Diagnosed with acute CVA s/p TNK and m1 occlusion S/P MT . c/b R iliac and common femoral artery occlusion s/p thrombectomy. Developed Fever: consulted ID, broaden abx, Cxs. - MRI brain w/wo done (11/10): cortical enhancement along the right frontal parietal and temporal regions 2/2 infarct progression but can't rule out cerebritis or infections.however LP neg. Also had glenis PEG fluid collection: Improved on abx - Urology replaced puentes (11/09-) Extubated, now on RA HOME Medications Prior to Admission medications Medication Sig Start Date End Date Taking? Authorizing Provider cetirizine (ZyrTEC) 10 MG tablet Take 1 tablet (10 mg total) by mouth in the morning. Yes Historical Provider, omeprazole (PriLOSEC) 20 MG capsule Take 1 capsule (20 mg total) by mouth in the morning. Yes Historical Provider, amitriptyline (ELAVIL) 50 MG tablet 2 tablets (100 mg total) nightly. Historical Provider, CURRENT Medications Current Facility-Administered Medications: acetaminophen (TYLENOL) tablet 500 mg, 500 mg, Per Tube, Q6H PRN, Nghia Pryor MD, 500 mg at 11/19/22 1536 bisacodyl (DULCOLAX) suppository 10 mg, 10 mg, Rectal, Daily PRN, Nghia Pryor MD cholecalciferol (VITAMIN D3) tablet 2,000 Units, 2,000 Units, Per Tube, Once a day, Nghia Pryor MD, 2,000 Units at 11/19/22 1158 doxycycline (VIBRAMYCIN/MONODOX) capsule 100 mg, 100 mg, Enteral, 2 times per day, Olinda Peralta PharmD, 100 mg at 11/19/22 1159 enoxaparin (LOVENOX) syringe 100 mg, 100 mg, Subcutaneous, Q12H SENDY, Nghia Pryor MD, 100 mg at 11/19/22 1157 guaiFENesin (ROBITUSSIN) 100 MG/5ML liquid 10 mL, 10 mL, Enteral, BID PRN, Nghia Pryor MD loratadine (CLARITIN) tablet 10 mg, 10 mg, Enteral, Once a day, Nghia Pryor MD, 10 mg at 11/19/22 1159 meropenem (MERREM) 2 g in sodium chloride 0.9 % 140 mL IVPB, 2 g, Intravenous, Q8H, Nghia Pryor MD, 2 g at 11/19/22 1158 metoprolol tartrate (LOPRESSOR) tablet 25 mg, 25 mg, Enteral, 2 times per day, Nghia Pryor MD, 25 mg at 11/19/22 1159 ondansetron ODT (ZOFRAN-ODT) disintegrating tablet 4 mg, 4 mg, Per Tube, Q6H PRN, Marlee Bradley MD oxyCODONE (ROXICODONE) immediate release tablet 5 mg, 5 mg, Enteral, Q4H PRN, Marlee Bradley MD, 5mg at 11/19/22 0246 pantoprazole-sodium bicarbonate 2mg/ml oral liquid 40 mg, 40 mg, Per Tube, Daily bef breakfast, Marlee Bradley MD, 40 mg at 11/19/22 1158 senna-docusate (SENOKOT-S) 8.6-50 MG tablet 2 tablet, 2 tablet, Enteral, Daily PRN, Nghia Pryor MD simethicone (MYLICON) chewable tablet 80 mg, 80 mg, Per Tube, BID PRN, Marlee Bradley MD, 80 mg at11/19/22 1159 tamsulosin (FLOMAX) 24 hr capsule 0.4 mg, 0.4 mg, Enteral, After Breakfast, Nghia Pryor MD, 0.4 mg at 11/19/22 1158 triamcinolone (KENALOG) 0.1 % ointment, , Apply externally, BID PRN, Nghia Pryor MD verapamil (CALAN) tablet 40 mg, 40 mg, Enteral, Q8H SENDY, Nghia Pryor MD, 40 mg at 11/19/22 1534 Warfarin Per Policy, , Does not apply, Daily, Nghia Pryor MD DATA Vitals: 11/18/22 1901 11/19/22 0516 11/19/22 0820 11/19/22 1908 BP: 108/70 111/74 115/67 108/64 Pulse: 90 78 77 Resp: 17 18 18 Temp: 98.1 ??F (36.7 ??C) 97.5 ??F (36.4 ??C) 97.8 ??F (36.6 ??C) TempSrc: Oral Oral Oral SpO2: 95% 94% 96% Weight: Height: Weights (last 3 days) Date/Time Weight Height BSA (Calculated - sq m) 11/18/22 1816 198 lb (89.8 kg) -- -- 11/17/22 1720 198 lb (89.8 kg) 5' 4 (1.626 m) 2.01 sq meters @ANTICOAGSUMMARY@ @FLOWDATE(2706:LAST)@ Intake/Output Summary (Last 24 hours) at 11/19/20222115 Last data filed at 11/19/20221907 Gross per 24 hour Intake 370 ml Output 1900 ml Net -1530 ml PHYSICAL EXAM General appearance: awake, alert, cooperative, no distress HEENT: Normocephalic, No icterus, No oral lesions, Oral and nasal mucosa moist Neck: Supple, no lymphadenopathy Eyes: EOMI, Conjunctiva normal, No discharge Cardiovascular: Normal heart rate, Normal rhythm, No murmurs, No rubs, No gallops Respiratory: Normal breath sounds, No respiratory distress, No wheezing, No rhonchi, No rales, No chest tenderness. GI: Bowel sounds normal, Soft, No tenderness, No rebound or guarding, No masses. Abdomen: soft without mass, non-tender, with normal bowel sounds Extremities: no clubbing, cyanosis or edema, no calf tenderness Musculoskeletal:no swelling of joints.no redness Psychologic: Mood ok, no suicidal ideation. Skin: No rash. 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 LABS CBC with Differential: Lab Results Component Value Date WBC 10.3 11/18/2022 HGB 10.6 (L) 11/18/2022 HCT 34.2 (L) 11/18/2022 PLT 541 (H) 11/18/2022 MCV 95.8 11/18/2022 MCH 29.7 11/18/2022 MCHC 31.0 11/18/2022 RDW 15.8 (H) 11/18/2022 [ BMP: Lab Results Component Value Date NA 142 11/18/2022 K 4.1 11/18/2022 CL 104 11/18/2022 CO2 26 11/18/2022 BUN 16 11/18/2022 CREATININE 0.77 11/18/2022 GLUCOSE 106 (H) 11/18/2022 CALCIUM 9.2 11/18/2022 ANIONGAP 12 11/18/2022 MG/PHOS: No results found for: MG, PHOS CKMB: No components found for: CKMB;2 PT/INR: Lab Results Component Value Date INR 1.2 (H) 11/19/2022 BNP: No results found for: BNP Last 3 Troponin: No components found for: TROPONINI;3 U/A: No results found for: COLORU, CLARITYU, GLUCOSEU, BILIRUBINUR, KETONESU, SPECGRAV, BLOODU, PHUR, UROBILINOGEN, NITRITE, LEUKOCYTESUR, MUCUS, RBCUA, WBCUA CMP: Lab Results Component Value Date NA 142 11/18/2022 K 4.1 11/18/2022 CL 104 11/18/2022 CO2 26 11/18/2022 BUN 16 11/18/2022 CREATININE 0.77 11/18/2022 GLUCOSE 106 (H) 11/18/2022 CALCIUM 9.2 11/18/2022 ANIONGAP 12 11/18/2022 LFT's: No results found for: ALB, PROT Ionized Calcium: No components found for: IONCA ABG: No results found for: PHART, DWC7SLP, PO2ART, OHU6GWE, BEART, U5BFYNOD HgBA1c: No results found for: HGBA1C Lipid Panel: No results found for: CHOL, TRIG, HDL TSH: No results found for: TSH Lab Results Component Value Date GLUCOSE 106 (H) 11/18/2022 BUN 16 11/18/2022 CREATININE 0.77 11/18/2022 NA 142 11/18/2022 K 4.1 11/18/2022 CL 104 11/18/2022 CO2 26 11/18/2022 CALCIUM 9.2 11/18/2022 @RESU CBC: Recent Labs Lab Units 11/18/22 0502 WBC X(10)9/L BLOOD x10E9/L 10.3 HGB GM/DL BLOOD gm/dL 10.6* PLT CT X(10)9/L BLOOD x10E9/L 541* MCV FL BLOOD fl 95.8 BMP: Recent Labs Lab Units 11/18/22 0502 SODIUM MMOL/L BLOOD mmol/L 142 POTASSIUM MMOL/L BLOOD mmol/L 4.1 CHLORIDE mmol/L 104 CO2 mmol/L 26 BUN MG/DL BLOOD mg/dL 16 CREATININE mg/dL 0.77 GLUCOSE MG/DL BLOOD mg/dL 106* CALCIUM MG/DL BLOOD mg/dL 9.2 I reviewed the EKG tracing/Xray Recent Labs Lab Units 11/18/22 0502 SODIUM MMOL/L BLOOD mmol/L 142 POTASSIUM MMOL/L BLOOD mmol/L 4.1 CHLORIDE mmol/L 104 CO2 mmol/L 26 BUN MG/DL BLOOD mg/dL 16 CREATININE mg/dL 0.77 GLUCOSE MG/DL BLOOD mg/dL 106* CALCIUM MG/DL BLOOD mg/dL 9.2 ANION GAP BLOOD mmol/L 12 ASSESSMENT AND PLAN Active Problems: Cerebrovascular accident Acute R MCA CVA Left hemiplegia /p TNK and MT and TICI2b revascularization on 10/19. Developed MCA syndrome s/p hemicrani. 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 - MRI brain w/wo done (11/10): cortical enhancement along the right frontal parietal and temporal regions 2/2 infarct progression but can't rule out cerebritis or infections.LP not concerning, however. -- glenis PEG fluid collection: Improved on abx - Urology replaced puentes (11/09-) TTE showed mobile aortic valve vegetation. IV abxs HTN Continue meds Migraine without aura Pian control GERD PPI Oral contraceptive use DVT Prophylaxis Obesity BMI 36 Nutrition consult Abn LFT Check hep screen Watch with statin D Pain management Today's pain score FEN. Nutrition consult for evaluation of nutritional status and the best diet. And for BMI evaluation and education regarding maintaining a healthy BMI Bladder management Voiding ok Bowel management . Titrate bowel medications for constipation/diarrhea. Skin. Nursing to address skin care throughout stay. Turn every 2 hrs Sleep. Monitor sleep-wake cycle. High Fall risk- Fall precautions GI Prophylaxis: DVT Prophylaxis: Full Resuscitation D/W patient , and attending physician about test results and treatment plan .No family in the room.Patient requiring monitoring of BP and HR while doing 3 hour intensive exercises to avoid fluctuations and hypotension . Aswell as monitoring of nutritional and fluid status , by weights, leg edema .Notified staff and patient to notify me of any change inconditions or new problems Electronically signed by: MARLEE BRADLEY MD, * Romy Villagran MD - 11/18/2022 4:34 PM CDT Long discussion with patient's via telephone about patient's current condition. Due to new onset, positional severe headache that occurs when patient is sitting upright and wearing helmet, Dr. Bradley has ordered Head CT to evaluate for any interval change. Possibility of spinal headache due to LP several days ago, Head CT will rule out any more worrisomechanges. For now, recommended patient lie flat. -Consider additional fluids +/- caffeine to help with potential spinal headache -Consider re-evaluation of helmet fit due to changing head shape and size post-operatively Hold PT/OT until Head CT has completed and been interpreted * Olinda Peralta PharmD - 11/17/2022 5:39 PM CDT [facility] Pharmacy Note Pharmacy Consultation - Warfarin Dosing and Monitoring Consuelo Darby is a 42 y.o. female who has been consulted for pharmacy warfarin dosing and monitoring. Labs: No results found for: INR No results found for: HGB No results found for: HCT No results found for: PLT Warfarin Dose History: Date INR Dose (mg) Comments 11/17/22 1.1 5mg Bridge with Lovenox 100mg BID Assessment: Warfarin Indication: ischemic stroke due to septic emboli; MT c/b R iliac and common femoral arteryocclusion s/p thrombectomy. INR Goal: 2-3 Today's INR is 1.1 and is Subtherapeutic. Bridging Therapy: Yes, describe: Lovenox 100mg BID until therapeutic Risk Factors for Bleeding: Lovenox Pertinent Medication Related to Warfarin: lovenox, doxycyline, meropenem Plan: 1. Administer warfarin 5mg by mouth one time this evening 2. Check INR tomorrow. Pharmacy will follow up with INR recheck and order subsequent warfarin dosespending INR results. 3. Pharmacy will provide warfarin education to the patient on TBD 4.The patient will continue to be monitored by the pharmacy department for the duration of the length of stay for assurance of medication safety and efficacy. OLINDA PERALTA PharmD 5:36 PM CDT 11/17/22 * Olinda Peralta PharmD - 11/17/2022 1:29 PM CDT [facility] Note Drug Regimen Review / Medication Reconciliation Performed A Drug Regimen Review / Medication Reconciliation was performed upon Admission for: CONSUELO DARBY (42 y.o.) Medication orders from the previous facility were reviewed and pended by the pharmacy department. Physician Dr. Pryor was notified that the orders were pended for their review. Medications zyrtec, omeprazole were substituted per Therapeutic Interchange Policy as approved by [employer]. Patient was not receiving elavil in acute, these medications were added to home medication list. Physician to review and restart these medications if appropriate during inpatient rehabilitation admission. Patient's DVT prophylaxis in acute if receiving consisted of Lovenox 100mg BID as a bridge for warfarin until INR is therapeutic Medication orders that have been clarified with the physician include: Kenalog as prn per dc orders, cont bisacodyl, senna-doc, muccinex as PRN (since not on dc orders), oxycodone, tylenol, Flomax per may Verapamil cont per may since not using SR formulation until can swallow pills whole Medication orders that require further follow-up include: NA The pharmacy department will monitor the medication orders and associated labs during the patient'slength of stay for assurance of medication safety and efficacy. OLINDA PERALTA, PharmAbiola 1:25 PM CDT documented in this encounter H&P Notes * Marlee Bradley MD - 11/18/2022 1:35 PM CDT Hospitalist History and PhysicAl Examination Report Patient Name: Consuelo Darby : 1980 Medical Record: [id number] DATE OF ADMISSION 11/17/2022 PRIMARY CARE PHYSICIAN No primary care provider on file. Attending Physician Yamileth Frias MD CHIEF COMPLAINT Active Problems: Cerebrovascular accident History of Present illness The patient is a 42 y.o. y/o female with history of HTN, GERD, presented tO ED with new left sided weakness and slurred speech Diagnosed with acute CVA s/p TNK and m1 occlusion S/P MT . c/b R iliac and common femoral artery occlusion s/p thrombectomy. Developed Fever: consulted ID, broaden abx, Cxs. - MRI brain w/wo done (11/10): cortical enhancement along the right frontal parietal and temporal regions 2/2 infarct progression but can't rule out cerebritis or infections.however LP neg. Also had glenis PEG fluid collection: Improved on abx - Urology replaced puentes (11/09-) Extubated, now on RA currently here for therapy Todays chief Complains INR 1.2 HGB 10.6 C/o severe headache with therapy and chnaging positions, became diaphoretic Vitals ok Check CT head Inc pain med D/W mother and in the room History also obtained from review of patients previous acute hospitalization chart, current rehabilitation chart , discussion with family members in the room and discussion with nursing staff taking care of the patient. Review of Systems General: no weight loss, no fever, no chills, no anorexia Skin: no rash Eyes: no blurry vision Ears/Nose/Throat: no nasal congestion, no sore throat Respiratory: no cough, no dyspnea, no wheezing Cardiovascular: no chest pain, no ankle swelling Gastrointestinal: no nausea, no vomiting, no diarrhea, no constipation, no abdominal pain. No melena, no bright red blood per rectum Genitourinary: no dysuria, no hematuria Musculoskeletal: no joint pain, no myalgia, no muscle weakness Neurologic: no seizures, no tremors, no fainting, no focal weakness , tingling or numbness Hematologic/Lymphatic: no abnormal bleeding, no abnormal bruising Endocrine: no heat or cold intolerance, no polydipsia, no polyuria Psychiatric: no anxiety, no depression Allergy/Immunology: no seasonal allergies, no joint stiffness in morning Review of ssytems pertinent as above and all the other 14 organ systems are negative Past Medical History Past Medical History: Diagnosis Date Gastroesophageal reflux disease Hypertension Migraine Past Surgical History Past Surgical History: Procedure Laterality Date SECTION CHOLECYSTECTOMY PEG TUBE PLACEMENT Allergies Allergies Allergen Reactions Latex Home Medications Prior to Admission medications Medication Sig Start Date End Date Taking? Authorizing Provider cetirizine (ZyrTEC) 10 MG tablet Take 1 tablet (10 mg total) by mouth in the morning. Yes Historical Provider, omeprazole (PriLOSEC) 20 MG capsule Take 1 capsule (20 mg total) by mouth in the morning. Yes Historical Provider, amitriptyline (ELAVIL) 50 MG tablet 2 tablets (100 mg total) nightly. Historical Provider, CURRENT Medications Current Facility-Administered Medications: acetaminophen (TYLENOL) tablet 500 mg, 500 mg, Per Tube, Q6H PRN, Nghia Pryor MD, 500 mg at 11/18/22 1031 bisacodyl (DULCOLAX) suppository 10 mg, 10 mg, Rectal, Daily PRN, Nghia Pryor MD cholecalciferol (VITAMIN D3) tablet 2,000 Units, 2,000 Units, Per Tube, Once a day, Nghia Pryor MD, 2,000 Units at 11/18/22 1033 doxycycline (VIBRAMYCIN/MONODOX) capsule 100 mg, 100 mg, Enteral, 2 times per day, Olinda Peralta PharmD, 100 mg at 11/18/22 1032 enoxaparin (LOVENOX) syringe 100 mg, 100 mg, Subcutaneous, Q12H SENDY, Nghia Pryor MD, 100 mg at 11/18/22 1033 guaiFENesin (ROBITUSSIN) 100 MG/5ML liquid 10 mL, 10 mL, Enteral, BID PRN, Nghia Pryor MD loratadine (CLARITIN) tablet 10 mg, 10 mg, Enteral, Once a day, Nghia Pryor MD, 10 mg at 11/18/22 1032 meropenem (MERREM) 2 g in sodium chloride 0.9 % 140 mL IVPB, 2 g, Intravenous, Q8H, Nghia Pryor MD, 2 g at 11/18/22 1252 metoprolol tartrate (LOPRESSOR) tablet 25 mg, 25 mg, Enteral, 2 times per day, Nghia Pryor MD, 25 mg at 11/18/22 1032 oxyCODONE (ROXICODONE) immediate release tablet 5 mg, 5 mg, Enteral, Q4H PRN, Marlee Bradley MD pantoprazole-sodium bicarbonate 2mg/ml oral liquid 40 mg, 40 mg, Per Tube, Daily bef breakfast, Nghia Pryor MD, 40 mg at 11/18/22 1033 senna-docusate (SENOKOT-S) 8.6-50 MG tablet 2 tablet, 2 tablet, Enteral, Daily PRN, Nghia Pryor MD tamsulosin (FLOMAX) 24 hr capsule 0.4 mg, 0.4 mg, Enteral, After Breakfast, Nghia Pryor MD, 0.4 mg at 11/18/22 1033 triamcinolone (KENALOG) 0.1 % ointment, , Apply externally, BID PRN, Nghia Pryor MD verapamil (CALAN) tablet 40 mg, 40 mg, Enteral, Q8H SENDY, Nghia Pryor MD, 40 mg at 11/18/22 0558 Warfarin Per Policy, , Does not apply, Daily, Nghia Pryor MD Social History reports that she has quit smoking. Her smoking use included cigarettes. She has a 4.00 pack-year smoking history. She has never used smokeless tobacco. She reports current alcohol use. She reports that she does not use drugs. Denies smoking, alcohol or illicit drugs currently Family History Family History Family history unknown: Yes No known history of thromboembolism Physical Exam Vital Signs: Temp: [98.2 ??F (36.8 ??C)-98.9 ??F (37.2 ??C)] 98.9 ??F (37.2 ??C) Pulse: [92-95] 95 Resp: [16-20] 18 BP: (113-135)/(74-79) 135/79 I/O Intake/Output Summary (Last 24 hours) at 11/18/2022 1335 Last data filed at 11/18/2022 0621 Gross per 24 hour Intake 0 ml Output 1100 ml Net -1100 ml Weights (last 3 days) Date/Time Weight Height BSA (Calculated - sq m) 11/17/22 1720 198 lb (89.8 kg) 5' 4 (1.626 m) 2.01 sq meters WEIGHTS 198 lb (89.8 kg) General appearance: awake, alert, cooperative, no distress HEENT: Normocephalic, No icterus, No oral lesions, Oral and nasal mucosa moist Neck: Supple, no lymphadenopathy Eyes: EOMI, Conjunctiva normal, No discharge Cardiovascular: s1-s2 audible, Normal heart rate, Normal rhythm, No murmurs, No rubs, No gallops Respiratory: Normal breath sounds, No respiratory distress, No wheezing, No rhonchi, No rales, No chest tenderness. GI: Bowel sounds normal, Soft, No tenderness, No rebound or guarding, No masses. Abdomen: soft without mass, non-tender, with normal bowel sounds, +/- Feeding Tube External Genitalia not examined, groin Extremities: no clubbing, cyanosis or edema, no calf tenderness Musculoskeletal:no swelling of joints.no redness, FROM otherjoints Psychologic: Mood and affect appropriate, no suicidal ideation. Skin: No rash, swelling or erythema identified . Warm and Dry, Neurologic/TASSEL CLIPPER:Alert & oriented x 3, Speech slow slurred , Tongue and uvula central Strength is 5/5 in right extremities Left 0/5 No clonus Gait not tested Please see height, weight, and BP reported elsewhere as part of this encounter Labs CBC with Differential: Lab Results Component Value Date WBC 10.3 11/18/2022 HGB 10.6 (L) 11/18/2022 HCT 34.2 (L) 11/18/2022 PLT 541 (H) 11/18/2022 MCV 95.8 11/18/2022 MCH 29.7 11/18/2022 MCHC 31.0 11/18/2022 RDW 15.8 (H) 11/18/2022 [ BMP: Lab Results Component Value Date NA 142 11/18/2022 K 4.1 11/18/2022 CL 104 11/18/2022 CO2 26 11/18/2022 BUN 16 11/18/2022 CREATININE 0.77 11/18/2022 GLUCOSE 106 (H) 11/18/2022 CALCIUM 9.2 11/18/2022 ANIONGAP 12 11/18/2022 MG/PHOS: No results found for: MG, PHOS CKMB: No components found for: CKMB;2 PT/INR: Lab Results Component Value Date INR 1.2 (H) 11/18/2022 CMP: Lab Results Component Value Date NA 142 11/18/2022 K 4.1 11/18/2022 CL 104 11/18/2022 CO2 26 11/18/2022 BUN 16 11/18/2022 CREATININE 0.77 11/18/2022 GLUCOSE 106 (H) 11/18/2022 CALCIUM 9.2 11/18/2022 ANIONGAP 12 11/18/2022 LFT's: No results found for: ALB, PROT Ionized Calcium: No components found for: IONCA ABG: No results found for: PHART, MRQ0AHY, PO2ART, VAU0LJX, BEART, G6MYHJNC HgBA1c: No results found for: HGBA1C Lipid Panel: No results found for: CHOL, TRIG, HDL TSH: No results found for: TSH IMAGING STUDIES & OTHER STUDIES Assessment and plan @ADMDXS@ Active Problems: Cerebrovascular accident Acute R MCA CVA Left hemiplegia /p TNK and MT and TICI2b revascularization on 10/19. Developed MCA syndrome s/p hemicrani. 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 - MRI brain w/wo done (11/10): cortical enhancement along the right frontal parietal and temporal regions 2/2 infarct progression but can't rule out cerebritis or infections.LP not concerning, however. -- glenis PEG fluid collection: Improved on abx - Urology replaced puentes (11/09-) TTE showed mobile aortic valve vegetation. IV abxs HTN Continue meds Migraine without aura Pian control GERD PPI Oral contraceptive use DVT Prophylaxis Obesity BMI 36 Nutrition consult Abn LFT Check hep screen Watch with statin D Pain management Today's pain score FEN. Nutrition consult for evaluation of nutritional status and the best diet. And for BMI evaluation and education regarding maintaining a healthy BMI Bladder management Voiding ok Bowel management . Titrate bowel medications for constipation/diarrhea. Skin. Nursing to address skin care throughout stay. Turn every 2 hrs Sleep. Monitor sleep-wake cycle. High Fall risk- Fall precautions GI Prophylaxis: DVT Prophylaxis: Full Resuscitation Comprehensive Rehab Program (including but not limited to): --Nursing: working on bowel and bladder continence, skin integrity, carry over from therapies, environmental safety, and providing patient and family education. --Physical and Occupational Therapy: working on strength, endurance, balance, gait, and technique to improve safety and independence with ADLs and Mobility. --ST: working on oral-motor control, executive skills, memory, orientation, and cognitive skills. --Stable Helper: discharge plans in the context of social, family, and discharge needs to help coordinate a safe discharge. --Neuropsychology (if applicable): tracking cognitive progress, evaluate memory, behavior, and cognitive function. guide patient and team toward better outcomes through understanding of behavioral and cognitive impairments and the obstacles that manifest by them --Rehabilitation Physician: to determine rehabilitation needs medical rehabilitation needs, will beseen by a cost control supervisor at a minimum of 3 times a week. The rehabilitation physician will coordinate care and help manage/prevent complications as a result of the patient???s illness and impairments The patient will receive 24 hour/day rehabilitation nursing supervision along with medical oversight by the medical and rehabilitation physicians to monitor for complications, changes in status, and determine the most appropriate medications to optimize function. The medical team will manage comorbidities and minimize complications such as dehydration, hypoglycemia, aspiration, pneumonia, uncontrolled BP, skin breakdown, contractures, and pain. In combination with intensive, comprehensive and multidisciplinary therapies to optimize function and long-term physical, cognitive, emotional and medical well-being. The patient will expected to participate and receive intensive therapy (an average of 3 hours per day of an average of 5 days weekly) not available in other settings in the inpatient rehabilitation program. The patient???s care will be coordinated through an interdisciplinary team with frequent paper steamer interactions and weekly conferences. An individualized plan of care with a minimum of two rehab therapies will be developed for the patient. Please refer to the Supervisor Welding Equipment Repairer???s Post Admission Note determining the medical necessity as outlined in the [facility] documents to support admission for Acute Inpatient Rehabilitation Electronically signed by: MARLEE BRADLEY MD, CC: No primary care provider on file. documented in this encounter Procedure Notes * Yamileth Frias MD - 12/08/2022 1:45 PM CDT Procedure: Injection of the Greater trochanteric bursa on left Indication: Inflammation of Greater trochanteric bursa on left Indications were discussed with the patient. Written consent was obtained prior to the procedure from patient . :Time out was performed immediately prior to the procedure , from nursing ( cristhian ) present during procedure Alcohol and betadine was used to prep the area. . Using sterile technique, the injection needle wasthen directed from a lateral aspect. A 22-gauge was used to inject 8 mL of 1% Lidocaine and 2 mL of 40mg/mL triamcinolone into Greater trochanteric bursa on left A bandage was applied. Post-Procedure: the patient tolerated the procedure well. Complications: None. documented in this encounter Consult Notes * Josie Mcintyre - 12/08/2022 12:44 PM CDTAssociated Order(s): IP CONSULT TO GASTROENTEROLOGY GASTROENTEROLOGY INPATIENT CONSULT Referring Physician: No ref. provider found PCP: Valdez Clay Jr., MD, MD Visit Date: 12/08/2022 Reason for consultation: G tube removal CC:recent stroke HPI: Consuelo Darby is a 42 y.o.female with pmh of recent CVA s/p thrombectomy, R iliac/common femorayocclusion s/p thrombectomy, who is seen in consultation for the reason mentioned above. She was admitted to rehab for the above Long course recent for CVA, thrombectomy Also per PEG fluid collection better on abx I am consulted re:PEG removal She feels ok today Has been eating most meals on her own, not using PEG Review of Systems: Gen/Constitutional: No weight loss, No fevers/chills. Normal appetite Eyes: Negative for visual disturbances or icterus ENT: Negative for tinnitus, nasal congestion, sore mouth, sore throat, hoarseness and voice change Respiratory: Negative for cough, sputum, hemoptysis, dyspnea on exertion or chronic bronchitis Cardiovascular: Negative for lower extremity edema, chest pain/pressure/discomfort, dyspnea on exertion, palpitations, orthopnea, LE edema Gastrointestinal: Per HPI Genitourinary: Negative for dysuria, nocturia, urinary incontinence, hematuria Hematologic: Negative for easy bruising, bleeding, lymphadenopathy and petechiae Musculoskeletal: Negative for myalgias, arthralgias and muscle weakness Neurological: Negative for headaches, dizziness, some L sided weakness Psych: Negative for depression, anxiety, or SI Skin: No rashes, new lesions, no easy bruising A complete review of systems was performed and all others are negative Past Medical History: Past Medical History: Diagnosis Date Gastroesophageal reflux disease Hypertension Migraine Past Surgical History: Past Surgical History: Procedure Laterality Date SECTION CHOLECYSTECTOMY PEG TUBE PLACEMENT Family History: Family History Family history unknown: Yes Denies family history of GI/liver/pancreaticobiliary disorders or malignancy Social History: Lives at home Tobacco: denies Etoh: denies Illicits: denies. Allergies: Allergies Allergen Reactions Latex MEDICATIONS FOR CURRENT ENCOUNTER: Outpatient Current Facility-Administered Medications Medication Dose Route Frequency Provider Last Rate Last Admin acetaminophen (TYLENOL) tablet 500 mg 500 mg Per Tube Q6H PRN Nghia Pryor MD 500 mg at 12/07/22 1353 baclofen (LIORESAL) tablet 5 mg 5 mg Oral Nightly Yamileth Frias MD 5 mg at 12/07/22 220 bethanechol (URECHOLINE) tablet 25 mg 25 mg Oral 3 times per day Yamileth Frias MD 25 mg at 12/08/22 0818 bisacodyl (DULCOLAX) suppository 10 mg 10 mg Rectal Daily PRN Yamileth Frias MD 10 mg at 12/06/22 182 cefdinir (OMNICEF) capsule 300 mg 300 mg Oral 2 times per day Nghia Pryor MD 300 mg at 12/08/22 08 cholecalciferol (VITAMIN D3) tablet 2,000 Units 2,000 Units Per Tube Once a day Nghia Pryor MD 2,000 Units at 12/08/22 0818 cyclobenzaprine (FLEXERIL) tablet 5 mg 5 mg Oral 3 times per day Loy Dawson MD 5 mg at 12/08/22 08 gabapentin (NEURONTIN) capsule 300 mg 300 mg Oral 3 times per day Loy Dawson MD 300 mg at 12/08/22 0818 guaiFENesin (ROBITUSSIN) 100 MG/5ML liquid 10 mL 10 mL Enteral BID PRN Nghia Pryor MD hydrocortisone (ANUSOL-HC) 2.5 % rectal cream Rectal 2 times per day Loy Dawson MD Given at 12/07/22 220 hydrOXYzine (ATARAX) tablet 25 mg 25 mg Oral Q6H PRN Yamileth Frias MD 25 mg at 12/07/222200 lidocaine (LIDOCARE) 4 % patch 1 patch 1 patch Transdermal Once a day Loy Dawson MD 1 patch at 12/08/22 0817 lidocaine (XYLOCAINE) 1 % injection 8 mL 8 mL Other Once Yamileth Frias MD loratadine (CLARITIN) tablet 10 mg 10 mg Enteral Once a day Nghia Pryor MD 10 mg at metoprolol tartrate (LOPRESSOR) tablet 25 mg 25 mg Enteral 2 times per day Nghia Pryor MD 25mg at 12/08/22 08 muscle rub (ICY HOT) 10-15 % cream Topical 3 times per day Yamileth Frias MD Given at 12/08/22 08 ondansetron ODT (ZOFRAN-ODT) disintegrating tablet 4 mg 4 mg Per Tube Q6H PRN Marlee Bradley MD 4 mg at 12/07/22 1032 oxyCODONE (ROXICODONE) immediate release tablet 5 mg 5 mg Enteral Q4H PRN Marlee Bradley MD 5 mg at 12/08/22 0821 oxyCODONE (ROXICODONE) immediate release tablet 5 mg 5 mg Oral Daily at 0600 Yamileth Frias MD 5 mg at 12/08/22 0556 pantoprazole-sodium bicarbonate 2mg/ml oral liquid 40 mg 40 mg Per Tube Daily bef breakfast MD Ramez 40 mg at 12/08/22 0606 polyethylene glycol (MIRALAX) packet 17 g 17 g Per Tube BID PRN Yamileth Frias MD senna-docusate (SENOKOT-S) 8.6-50 MG tablet 2 tablet 2 tablet Enteral Daily PRN Yamileth Frias MD simethicone (MYLICON) chewable tablet 80 mg 80 mg Per Tube BID PRN Marlee Bradley MD 80 mg at 11/28/22 205 tamsulosin (FLOMAX) 24 hr capsule 0.4 mg 0.4 mg Enteral After Breakfast Nghia Pryor MD 0.4 mg at 12/08/22 0817 triamcinolone (KENALOG) 0.1 % ointment Apply externally BID PRN Nghia Pryor MD Given at 11/20/222014 triamcinolone acetonide (KENALOG-40) injection 80 mg 80 mg Intra-articular Once Yamileth Frias MD verapamil (CALAN) tablet 40 mg 40 mg Enteral Q8H SENDY Nghia Pryor MD 40 mg at 12/08/22 0556 Warfarin Per Policy Does not apply Daily Nghia Pryor MD warfarin tablet 3 mg 3 mg Oral Once Nghia Pryor MD Followed by [START ON 12/09/2022] warfarin tablet 4 mg 4 mg Oral Daily Nghia Pryor MD Inpatient: @CMEDSCH@ CONTINUOUS MEDICATIONS: @CMEDIV@ PRN MEDICATIONS: @SHOBHARWojciech@ Physical Exam: Wt Readings from Last 4 Encounters: 12/08/22 191 lb (86.6 kg) BP 112/75 Pulse 77 Temp 98.6 ??F (37 ??C) (Oral) Resp 18 Ht 5' 4 (1.626 m) Wt 191 lb (86.6 kg) SpO2 95% BMI 32.79 kg/m?? Body mass index is 32.79 kg/m??. Gen: In no acute distress, appears stated age. HEENT: Anicteric sclera, Oral mucosa, lips and tongue appear normal. Normal dentition. L facial droop Neck: Supple, no JVD, no masses, No lymphadenopathy Lungs: CTAB. No dullness. No wheezes. No rales Heart:RRR, normal S1 and S2, no murmurs or extra heart sounds appreciated Abdomen: Soft, Non-tender, Not distended, No javier ascites, Bowel sounds are normal, No masses or hepatosplenomegaly. PEG site c/d/I. Dressings placed over bumper. 2 rubber catheters suture in place laterally to the PEG bumper, appears clean/dry Ext: No edema, No cyanosis, No clubbing Musculoskeletal: Ambulates, No joint redness, tenderness Neurologic: L facial droop andL sided weakness. A&Ox3 Psych: Appropriate affect, mood, and thought processes. No evidence of hallucination or delirium. Labs Lab Results Component Value Date WBC 7.3 12/07/2022 HGB 10.2 (L) 12/07/2022 HCT 32.1 (L) 12/07/2022 MCV 93.6 12/07/2022 PLT 319 12/07/2022 Lab Results Component Value Date NA 138 12/07/2022 K 3.6 12/07/2022 CL 101 12/07/2022 CO2 23 12/07/2022 BUN 8 12/07/2022 CALCIUM 9.3 12/07/2022 No results found for: ALKPHOS, AST, ALT, CREA, LABPROT, ALBUMIN @LABRCNT(WBC:3,HGB:3,HCT:3,PLTCOUNT:3)@ @LABRCNT(SODIUM,POTASSIUM,CHLORIDE,CO2,BUN,CREATININE,GLUCOSE,CALCIUM,ALBUMIN,AL KPHOS,ALT,AST,TBIL,TPROT,EGFR)@ @LABRCNT(SODIUM:3,POTASSIUM:3,CHLORIDE:3,CO2:3,BUN:3,CREATININE:3,GLUCOSE:3,CALC IUM:3)@ @LABRCNT(ALBUMIN:3,ALKPHOS:3,ALT:3,AST:3,TBIL:3,DBIL:3,TPROT:3)@ @LABRCNT(INR:3)@ @LABRCNT(AMYLASE:3)@ @LABRCNT(LIPASE:3)@ Prior Imaging: Prior Endoscopies: 11/10/22 An endoscope was inserted into the esophagus [...] back to the ICU in stable condition. IMPRESSION Consuelo Darby is a 42 y.o. with S/p PEG (~4.5 weeks ago) 11/10 c/b fluid collection, better, s/p gastropexy by gen surg Recent CVA with L sided deficits * Comorbidities: HTN, recent aortic valve veg s/p bx, neurogenic bladder PLAN Keep dressing OVER peg tube bumper Still fairly early for removal Would consult [facility] gen surg to eval over weekend or next week, for planning to remove the G tube andgastropexy, the following week or [address] Faria shall be covering me over the weekend if there are any further concerns Thank you for allowing me to participate in the care of your patient. Do not hesitate to contact neisha you have further questions. Josie Mcintyre MD [facility], [facility] office: [phone] Exchange: [phone] * Edgardo Galvez, OD - 11/27/2022 9:18 AM CDTAssociated Order(s): IP CONSULT TO OPTOMETRY Complaint 42 year old F presents for , . (HPI was performed by Edgardo Galvez ) Injuries, Surgeries, Hospitalization History Zeinab Willard, OT Edgardo Galvez, OD Consuelo Darby, Ilya-see vision screen in note on 11/20 Date of Onset: 10/19/22 Location: R MCA M1 occlusion. R M1 stroke s/p tenecteplase and thrombectomy 10/19/22. Complicated bycerebral edema and midline shfit s/p hemicraniectomy 10/20/22. Significant Past Medical History(including DM, HTN): Gerd, HTN, and hemiplegic migraine Last eye exam: unknown Vision changes noticed by patient: Client unable to report changes in vision due to decreased cognition Vision changes noticed by therapist: Unable to focus gaze on objects in L visual field, unable to successfully perform visual pursuits in all directions, during visual acuity test missed letters on the L side Posture during sitting/walking: head turned towards right most of the time Therapist Name: Ian'gunner patient 11/20/22 5511 Vision Assessment Perform Visual Assessment Yes Glasses Far Acuity Tested with glasses Near-Far Acuity Score (Client able to see first line and part of second line (unable to see the letter on the left side of Line 2) from 2 feet away, however, was unable to see 10 feet away - completes with use of glasses.) Fixation Impaired (Attempted to complete assessment, unable due to poor cognition. Functionally, client struggles to focus vision on objects. Client unable to fixate on objects/items in L visual field.) Visual Powell Not tested (Unable to test successfully due to cognition. Client unable to fixate on objects/items in L visualfield, despite verbal cuing.) Pursuits Impaired (Significant delay/minimal ability to visually track target.) Clock Drawing Impaired 4 out of 4 (spaces between ely shoshone, incorrect spacing of numbers, no clock hands, no time) Star Cancellation Test Errors (R and L omissions, circles some stars (7 stars located) only on far R side, circling blank spaces on far R side) LINE BISECTION TEST Bisects to right of midline (Suspect L neglect as client weiss on R side only. Does not gisselle on lines, weiss on open spaces. 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 Evaluation Yes Visual Acuities SC Dist CC Dist SC Near CC Near OD 20/ PH 20/ 20/ 20/ 20/ OS 20/ PH 20/ 20/ 20/ 20/ OU 20/ 20/ 20/ 20/ Pretests Pupils Direct Consensual APD OD OS Pursuits Saccades W4D@D W4D@N NPC Midline Orientation Cover Test Horizontal Vertical Distance Vertical Extraocular Muscle Visual field (By Confrontation) OD OS Intraocular Pressure Date Time Method OD OS 11/27/2022 Anterior Exam OD OS Adnexa Lids/Lashes Bulb Conjunctiva Palp Conjunctiva Tear Meniscus Cornea Anterior Chamber Angles Iris Lens/IOL Posterior Exam OD OS Vitreous Optic Nerve C/D Ratio 0.00 / 0.00 0.00 / 0.00 Macula Vessels Retina Periphery Diagnosis and Plan Recall Recommendations * Valdez Cummins MD - 11/22/2022 12:00 AM CDT CSN #: [id number] DATE OF CONSULTATION: 11/22/2022 DIAGNOSES: 1. Urinary retention. 2. 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 YEAST CAKE CUTTER: Valdez Cummins MD. ADDITIONAL ATTENDING PHYSICIAN: Dr. Marlee Bradley. REASON FOR CONSULTATION: Urinary retention. BRIEF HISTORY: The patient is a 42-year-old female with a history of hypertension, gastroesophagealreflux disease, who presented with left-sided hemiparesis secondary to a large acute right middle cerebral artery stroke. She was treated at an outside facility and transferred to the rehab unit for further evaluation. She developed urinary retention and had a Puentes catheter placed. Speaking with her family, she did not have any urinary problems prior to her stroke. I have been asked to see the patient in consultation for further evaluation and treatment. PAST MEDICAL HISTORY: Remarkable for gastroesophageal reflux disease, hypertension and migraine headaches. PAST SURGICAL HISTORY: Remarkable for previous section, cholecystectomy as well as PEG tube placement. ALLERGIES: SHE HAS ALLERGIES TO LASIX. MEDICATIONS ON ADMISSION: Include: 1. Zyrtec. 2. Prilosec. 3. Elavil. FAMILY MEDICAL HISTORY: Negative for , malignancy or stone disease. SOCIAL HISTORY: The patient has no history of alcohol, tobacco, or drug use. REVIEW OF SYSTEMS: All systems reviewed were negative aside from those mentioned in the history of present illness. PHYSICAL EXAMINATION: GENERAL: Reveals a hemiplegic female who is obtunded. VITAL SIGNS: She is currently afebrile with a temperature of 98, pulse 95, blood pressure 135/79, respirations 18. HEAD AND NECK: Unremarkable. CHEST: Clear to percussion and auscultation. CARDIAC: Reveals a regular rhythm without murmurs, rubs, or gallops. ABDOMEN: Soft. No masses or guarding. : Deferred. She has a Puentes catheter draining clear fr[place] urine. PELVIC: Examination was deferred. EXTREMITIES: Reveal no cyanosis, clubbing, or edema. NEUROLOGIC: Remarkable for left hemiparesis. IMPRESSION: Urinary retention, likely due to an acute neuropathic bladder secondary to her stroke. However, she is on medications such as amitriptyline, which can contribute to urinary retention. PLAN: My recommendations would be to discontinuing the medication with anticholinergic properties if possible. I would leave the Puentes catheter to gravity drainage and then if she starts improving inthe near future I would recommend starting on Urecholine 25 mg p.o. t.i.d. and/or tamsulosin 0.4 mgp.o. daily. I will also follow the patient during her admission. Doc #: [id number] cc: Valdez Cummins MD * Esa Yanez PhD - 11/20/2022 6:28 PM CDTAssociated Order(s): IP CONSULT TO NEUROPSYCHOLOGY PSYCHOLOGY INITIAL EVALUATION SUBJECTIVE: Reason for Referral: Ms. Darby is a right handed, female referred for evaluation in order to evaluate cognition and address adjustment to impairment or loss of function. 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[employer] : No Rehab Diagnosis: Principal Problem: Cerebrovascular accident Date of Onset: 10-19 Brain Imaging: Right MCA infarct, sonya-craniectomy Medical History (per record): Past Medical History: Diagnosis Date Gastroesophageal reflux disease Hypertension Migraine Past Surgical History: Procedure Laterality Date SECTION CHOLECYSTECTOMY PEG TUBE PLACEMENT History of Psych Disorders and Substance Abuse: no history reported Current Medications: Current Facility-Administered Medications: acetaminophen (TYLENOL) tablet 500 mg, 500 mg, Per Tube, Q6H PRN, Nghia Pryor MD, 500 mg at 11/20/22 0610 bisacodyl (DULCOLAX) suppository 10 mg, 10 mg, Rectal, Daily PRN, Nghia Pryor MD cholecalciferol (VITAMIN D3) tablet 2,000 Units, 2,000 Units, Per Tube, Once a day, Nghia Pryor MD, 2,000 Units at 11/20/22 0830 doxycycline (VIBRAMYCIN/MONODOX) capsule 100 mg, 100 mg, Enteral, 2 times per day, Manuel EnglishD, 100 mg at 11/20/22 0831 enoxaparin (LOVENOX) syringe 100 mg, 100 mg, Subcutaneous, Q12H SENDY, Nghia Pryor MD, 100 mg at 11/20/22 0830 guaiFENesin (ROBITUSSIN) 100 MG/5ML liquid 10 mL, 10 mL, Enteral, BID PRN, Nghia Pryor MD loratadine (CLARITIN) tablet 10 mg, 10 mg, Enteral, Once a day, Nghia Pryor MD, 10 mg at 11/20/22 0831 meropenem (MERREM) 2 g in sodium chloride 0.9 % 140 mL IVPB, 2 g, Intravenous, Q8H, Nghia Pryor MD, 2 g at 11/20/22 1230 metoprolol tartrate (LOPRESSOR) tablet 25 mg, 25 mg, Enteral, 2 times per day, Nghia Pryor MD, 25 mg at 11/20/22 0830 ondansetron ODT (ZOFRAN-ODT) disintegrating tablet 4 mg, 4 mg, Per Tube, Q6H PRN, Marlee Bradley MD, 4 mg at 11/20/22 1159 oxyCODONE (ROXICODONE) immediate release tablet 5 mg, 5 mg, Enteral, Q4H PRN, Marlee Bradley MD, 5mg at 11/20/22 09 pantoprazole-sodium bicarbonate 2mg/ml oral liquid 40 mg, 40 mg, Per Tube, Daily bef breakfast, Marlee Bradley MD, 40 mg at 11/20/22 0606 senna-docusate (SENOKOT-S) 8.6-50 MG tablet 2 tablet, 2 tablet, Enteral, Daily PRN, Nghia Pryor MD simethicone (MYLICON) chewable tablet 80 mg, 80 mg, Per Tube, BID PRN, Marlee Bradley MD, 80 mg at11/19/22 1159 tamsulosin (FLOMAX) 24 hr capsule 0.4 mg, 0.4 mg, Enteral, After Breakfast, Nghia Pryor MD, 0.4 mg at 11/20/22 0830 triamcinolone (KENALOG) 0.1 % ointment, , Apply externally, BID PRN, Nghia Pryor MD verapamil (CALAN) tablet 40 mg, 40 mg, Enteral, Q8H SENDY, Nghia Pryor MD, 40 mg at 11/20/22 1305 Warfarin Per Policy, , Does not apply, Daily, Nghia Pryor MD warfarin tablet 5 mg, 5 mg, Oral, Once, Nghia Pryor MD Living Arrangement: family--spouse and 15 and 6 year-old children Prior Level of Functioning: Independent with ADL's Smoking: No Behavior and Appearance: alert; she demonstrated significantly decreased attention to left space Speech: Restricted voice prosody; speech sparse but comprehensible Articulation: no impairment noted Fluency: mildly impaired Repetition: no impairment noted Comprehension; no impairment noted Pain: location noted that it was painful when she wears the protective helmet Neurovegetative Symptoms: none reported Affective Range: flat Mood: The patient described distress with her separation from her home and loved ones --she is ableto indicate that she feels her children are in good hands The patient explicitly denied suicidal ideation and explicitly denied suicidal intent. She indicated that she is hopeful for rehabilitation progress. Patient reports cognitive change? (describe if yes): The patient denied cognitive changes. When asked about changes in vision or visual perception the patient noted that it is difficult for her to wear her glasses and that she is not wearing her contact lenses. Patients stated goals: go home and be able to eat and drink OBJECTIVE: Cognitive Assessment: Mini Mental Status Exam Pro rated score 20 / 30 T (age and edu) = less than 1 ( - 4 SD) Domains Assessed: Orientation: oriented to person, place, and circumstance Attention: moderately impaired Comprehension: no impairment noted Repetition: no impairment noted Naming: Grossly intact for naming common objects Memory: moderately impaired Registration: / Free Recall: /3 Social Judgment: Impaired with limited insight into her impairments Visuospatial Perception: Decreased attention to left space Executive Functioning: Mildly to moderately impaired Decreased insight Decreased initiation Reduced speed of processing Mood Rating: Geriatric Depression Scale, Score +0/5, WNL ASSESSMENT: Moderate cognitive and perceptual impairment without apparent insight The patient described distress with her separation home and her loved ones but denied symptoms of depression at this time; she is hopeful for the benefit of rehabilitation Ability and willingness to work towards goals, receptivity to psychological support and plan of care :Good PLAN: The patient's concerns were discussed supportively; she was encouraged to consider her age to be a good predictor of progress. individual intervention Goals: Patient to show initial understanding of and adjustment to stroke Active participation in all therapies Recommendations for Treatment Team: Recommendations for Emotional expression: Please encourage the patient to verbalize her feeling state, since it will be difficult to discern this from her outward expression, alone. Recommendations for Perception, Praxis and Problem Solving: Reinforce verbal self cues for attention to the left Recommendations for Attention and Distractibility: Minimize external distractions Recommendations for Memory: Emphasize over-learned tasks such as basic self care Allow increased practice to facilitate encoding of novel information and unfamiliar tasks Recommendations for Insight: Provide gentle but accurate feedback Encourage patient to rely on trusted others about current ability level with specific activities Recommendations for Self Efficacy: Involve patient in rehab goal-setting, especially short term goal-setting Review patients (quantitative) progress Recommendations for Separation Feelings: Ask family to post a written schedule of their planned visits Determine and then post target date of discharge in patients room Thank you for the opportunity to participate in your patient's care. If there are any questions about the assessment or recommendations, please do not hesitate to call. ESA YANEZ, PhD 11/20/2022 6:28 PM CDT * Karolina Parks, RD - 11/20/2022 12:03 PM CDTAssociated Order(s): IP CONSULT TO NUTRITION SERVICES CLINICAL NUTRITION ASSESSMENT: Patient seen r/t + nutrition screen for TF, difficulty chewing/swallowing. Pt has been at [facility] since 10/19 and has been NPO with TF since that time. PEG tube placed 11/01/22. At [facility] was receiving Jevity 1.5 at 50 ml/hr to provide 1800 kcal, 76g protein, 258 g Carb, 912 ml free water. Also has 150 ml water flush q 4 hrs for additional 900 ml. Total free water 1812 ml. Admitted to rehab 11/17. Per notes TF & RN TF was held 11/18 2/2 complaints of abdominal fullness. KUB completed 11/19 = air seen, no obstruction, no free air. TF was turned back on at lower rate 11/19. Today TF back up to 50 ml/hr. Per patient she is having gas but is okay with continuing at currentrate. Noted receiving Mylicon 11/19. TF is meeting nutrition needs, agree as ordered. If abdominal symptoms improve may consider changing to 20 hr regimen at 60 ml/hr to be off 4 hours for therapy perday. On [facility] admit weight 210# via bedscale. Rehab weight 198#. Weight loss 12#; 5% loss in 1 month. Didnot have any visual muscle loss at this time. Will monitor. Last BM 11/17, has PRN senna & dulcolax ordered Recommendation: Continue Jevity 1.5 at 50 ml/hr with 150 ml H20 flush q 4hrs If abdominal issues resolve, change Jevity 1.5 to 60 ml/hr x 20 hrs (off 4 hrs for therapy) Patient Active Problem List Diagnosis Cerebrovascular accident Hypertension Past Medical History: Diagnosis Date Gastroesophageal reflux disease Hypertension Migraine Past Surgical History: Procedure Laterality Date SECTION CHOLECYSTECTOMY PEG TUBE PLACEMENT 10/20 s/p hemicraniotomy Anthropometrics: Height: 5' 4 (162.6 cm) Admit Weight: 198 lb (89.8 kg) (11/17/22 172) Weight Method: Bed scale (11/17/221719) Latest Weight: 198 lb (89.8 kg) (11/18/221815) Weight Method: Bed scale (11/18/221815) IBW:120# 165%IBW BMI (Calculated): 34, BMI Class: obese Weight Comment: 12# weight loss x 1 month from [facility] Bedscale weight 10/19 210# Dietary Orders (From admission, onward) Start Ordered 11/17/221745 NPO Diet, Tube Feeding No Tray Strict NPO; Jevity 1.5; Tube Feeding Continuous rate (mL/hr): 50; Tube Feeding water flush (mL): 150; Water Flush type: Water; Water flush frequency: Every 4 hours Diet effective now End/Expires: Until Specified Question Answer Comment NPO Status: Strict NPO Tube Feeding Formula: Jevity 1.5 Tube Feeding Continuous rate (mL/hr): 50 Tube Feeding water flush (mL): 150 Water Flush type: Water Water flush frequency: Every [address] order in third green party system. Done 11/17/221748 Food Allergies: none Nutrition Related Concerns: Swallowing Food/Nutrient Intake: NPO - has been receiving Tube Feeding Difficulty Chewing or Swallowing: Yes (Comment) Estimated Needs: Total Energy Estimated Needs: 0785-8365 Method for Estimating Needs: 30kcal/kg IBW - 20 kcal/kg ABW Total Protein Estimated Needs: 70-82 Method for Estimating Needs: 1.3-1.5g/kg IBW Total Fluid Estimated Needs: 1800 Method for Estimating Needs: 1ml/kcal NutritionSupport: Nutrition Support: Yes Select Nutrition Support: Enteral Enteral Route: PEG KCAL/24 Hours: 1800 Protein (gm/24 hours): 76 Water in Tube Feeding (ml/24 hours): 912 Flush Water (ml/24 hours): 900 % KCAL Needs: 100 % Protein Needs: 100 % Fluid Needs: 100 % RDI: 100 Relevant Labs: Recent Labs Lab Units 11/20/22 0740 SODIUM MMOL/L BLOOD mmol/L 141 POTASSIUM MMOL/L BLOOD mmol/L 3.8 CHLORIDE mmol/L 105 CO2 mmol/L 26 BUN MG/DL BLOOD mg/dL 21* CREATININE mg/dL 0.77 GLUCOSE MG/DL BLOOD mg/dL 114* CALCIUM MG/DL BLOOD mg/dL 9.2 ANION GAP BLOOD mmol/L 10 Relevant Medications: Current Facility-Administered Medications: acetaminophen (TYLENOL) tablet 500 mg, 500 mg, Per Tube, Q6H PRN, Nghia Pryor MD, 500 mg at 11/20/22 0610 bisacodyl (DULCOLAX) suppository 10 mg, 10 mg, Rectal, Daily PRN, Nghia Pryor MD cholecalciferol (VITAMIN D3) tablet 2,000 Units, 2,000 Units, Per Tube, Once a day, Nghia Pryor MD, 2,000 Units at 11/20/22 0830 doxycycline (VIBRAMYCIN/MONODOX) capsule 100 mg, 100 mg, Enteral, 2 times per day, Manuel EnglishD, 100 mg at 11/20/22 08 enoxaparin (LOVENOX) syringe 100 mg, 100 mg, Subcutaneous, Q12H SENDY, Nghia Pryor MD, 100 mg at 11/20/22 0830 guaiFENesin (ROBITUSSIN) 100 MG/5ML liquid 10 mL, 10 mL, Enteral, BID PRN, Nghia Pryor MD loratadine (CLARITIN) tablet 10 mg, 10 mg, Enteral, Once a day, Nghia Pryor MD, 10 mg at 11/20/22 0831 meropenem (MERREM) 2 g in sodium chloride 0.9 % 140 mL IVPB, 2 g, Intravenous, Q8H, Nghia Pryor MD, 2 g at 11/20/22 0402 metoprolol tartrate (LOPRESSOR) tablet 25 mg, 25 mg, Enteral, 2 times per day, Nghia Pryor MD, 25 mg at 11/20/22 0830 ondansetron ODT (ZOFRAN-ODT) disintegrating tablet 4 mg, 4 mg, Per Tube, Q6H PRN, Marlee Bradley MD, 4 mg at 11/20/22 1159 oxyCODONE (ROXICODONE) immediate release tablet 5 mg, 5 mg, Enteral, Q4H PRN, Marlee Bradley MD, 5mg at 11/20/22 09 pantoprazole-sodium bicarbonate 2mg/ml oral liquid 40 mg, 40 mg, Per Tube, Daily bef breakfast, Marlee Bradley MD, 40 mg at 11/20/22 0606 senna-docusate (SENOKOT-S) 8.6-50 MG tablet 2 tablet, 2 tablet, Enteral, Daily PRN, Nghia Pryor MD simethicone (MYLICON) chewable tablet 80 mg, 80 mg, Per Tube, BID PRN, Marlee Bradley MD, 80 mg at11/19/22 115 tamsulosin (FLOMAX) 24 hr capsule 0.4 mg, 0.4 mg, Enteral, After Breakfast, Nghia Pryor MD, 0.4 mg at 11/20/22 0830 triamcinolone (KENALOG) 0.1 % ointment, , Apply externally, BID PRN, Nghia Pryor MD verapamil (CALAN) tablet 40 mg, 40 mg, Enteral, Q8H SENDY, Nghia Pryor MD, 40 mg at 11/20/22 0606 Warfarin Per Policy, , Does not apply, Daily, Nghia Pryor MD Skin: WDL PEG tube Peripheral IV Left Antecubital-Dressing Status: Clean, Dry, Intact Last BM: Bowel Occurrence: Continent (11/17/221814) Plan of Care - Nutrition Care Plans 1 Author: Karolina Parks RD Service: -- Author Type: Registered Dietitian Filed: 11/20/2022 12:02 PM Date of Service: 11/20/2022 12:02 PM Status: Signed Legal Coordinator: Karolina Parks RD (Registered Dietitian) Problem: Inadequate Oral Intake Description: Oral food/beverage intake that is less than established reference standards or recommendations based on physiological needs. Related to: dysphagia As evidenced by: need for TF to meet nutritional needs. Goal: Maintain Nutritional Status Outcome: Progressing Flowsheets (Taken 11/20/2022 1201) Enteral and Parenteral Nutrition: Enteral nutrition Education Needs: not indicated Monitor: TF tolerance Weight Will follow every 5 days per protocol. Karolina Stock RD/MELVA [employer] [id number] 11/20/22 12:03 PM CDT * Romy Villagran MD - 11/18/2022 9:24 AM CDTAssociated Order(s): IP CONSULT TO PHYSICAL MEDICINE REHAB Physical Medicine and Rehabilitation History & Physical Patient Name: Consuelo Darby : 1980 Admission Date and Time: 11/17/2022 4:00 PM Room Number: 303/303-1 Referring Physician: Jim Walter Primary Care Physician: Yvan Booth Subjective Chief Complaint: left sided weakness Admission Diagnoses: Patient Active Problem List Diagnosis Cerebrovascular accident HPI: Consuelo Darby is a 42 y.o. female who developed acute onset L sided weakness, L-sided sensory deficits, and dysarthria. L sided weakness resolved in route and dysarthria improved in route. On arrival patient noted to L gaze plasy, L hemianopsia, mild dysarthria, and extinction. NIHSS: 7. Patientwas given TNK and code IVR was activated. Revasculatization of R MCA M1 occlusion. R M1 stroke s/p tenecteplase and thrombectomy 10/19/22. Complicated by cerebral edema and midline shfit s/p hemicraniectomy 10/20/22. Infectious disease consult on 11/14 noted possibility of culture negative endocarditis as reason for a persistent fever. Recommended to continue meropenem and doxycycline for 7 days (end 11/22). Evaluated by rheumatology for possible antiphosphoplipid syndrome - workup negative. Evaluated by heme/onc due to neutropenia - likely myelosuppression multifactorial secondary to medications and inflammation, but unlikely to be a primary hematologic disorder contributing to neutropenia. Patient medically optimized, with outpatient followups scheduled for ongoing workup as to etiology of stroke. After further medical stabilization and therapy evaluations, the patient was discharged and admitted to [facility] at the following date and time 11/17/2022 4:00 PM for further medical care and rehabilitation. Subjective Past Medical History: Diagnosis Date Gastroesophageal reflux disease Hypertension Migraine Past Surgical History: Procedure Laterality Date SECTION CHOLECYSTECTOMY PEG TUBE PLACEMENT Family History Family history unknown: Yes Social History: Social History Substance and Sexual Activity Alcohol Use Yes Comment: rarely Social History Tobacco Use Smoking Status Former Packs/day: 0.50 Years: 8.00 Pack years: 4.00 Types: Cigarettes Smokeless Tobacco Never Vaping Use Vaping Status Not on file Social History Substance and Sexual Activity Drug Use Never Support System and Family Circumstances, Living Situation/Home Environment, Accessibility, and DME: Lives in 1 story home with her and children. 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 [employer] Functional Status: Pre-Morbid Functional Status: Eating: independent Grooming/Hygiene: independent Upper Extremity Dressing: independent Lower Extremity Dressing: independent Bed Mobility: independent Supine-Sit: independent Sit-Stand: independent Toilet Transfer: independent Expression: independent Memory: independent Ambulation: independent Current Functional status: Eating: Total assist Grooming/Hygiene: min assist Upper Extremity Dressing: max assist Lower Extremity Dressing: total assist Bed Mobility: max assist Supine-Sit: mod assist Sit-Stand: mod assist Toilet Transfer: total assist Expression: max assist Memory: not evaluated Ambulation: not evaluated Review of Systems General ROS: negative for fever, chills, malaise Psychological ROS: negative for marked mood swings, HI/SI Ophthalmic ROS: negative for acute vision changes ENT ROS: negative for acute hearing changes, nasal drainage, and throat pain Allergy and Immunology ROS: negative for immunodeficiency Hematological and Lymphatic ROS: negative for bleeding diathesis Endocrine ROS: negative for polyuria, polydipsia, unexplained weight changes Respiratory ROS: negative for dyspnea, wheezing Cardiovascular ROS: negative for chest pain, palpitations Gastrointestinal ROS: negative for constipation, diarrhea, and abdominal pain Genito-Urinary ROS: negative for dysuria Musculoskeletal ROS: negative for muscle and joint pain Neurological ROS: negative for stroke Dermatological ROS: negative for rashes and other skin lesions Medications/Allergies: Medications Prior to Admission Medication Sig Dispense Refill Last Dose cetirizine (ZyrTEC) 10 MG tablet Take 1 tablet (10 mg total) by mouth in the morning. omeprazole (PriLOSEC) 20 MG capsule Take 1 capsule (20 mg total) by mouth in the morning. amitriptyline (ELAVIL) 50 MG tablet 2 tablets (100 mg total) nightly. Current Facility-Administered Medications: acetaminophen (TYLENOL) tablet 500 mg, 500 mg, Per Tube, Q6H PRN, Nghia Pryor MD bisacodyl (DULCOLAX) suppository 10 mg, 10 mg, Rectal, Daily PRN, Nghia Pryor MD cholecalciferol (VITAMIN D3) tablet 2,000 Units, 2,000 Units, Per Tube, Once a day, Nghia Pryor MD doxycycline (VIBRAMYCIN/MONODOX) capsule 100 mg, 100 mg, Enteral, 2 times per day, Manuel EnglishD, 100 mg at 11/17/222135 enoxaparin (LOVENOX) syringe 100 mg, 100 mg, Subcutaneous, Q12H SENDY, Nghia Pryor MD, 100 mg at 11/17/222205 guaiFENesin (ROBITUSSIN) 100 MG/5ML liquid 10 mL, 10 mL, Enteral, BID PRN, Nghia Pryor MD loratadine (CLARITIN) tablet 10 mg, 10 mg, Enteral, Once a day, Nghia Pryor MD meropenem (MERREM) 2 g in sodium chloride 0.9 % 140 mL IVPB, 2 g, Intravenous, Q8H, Nghia Pryor MD, 2 g at 11/18/22404 metoprolol tartrate (LOPRESSOR) tablet 25 mg, 25 mg, Enteral, 2 times per day, Nghia Pryor MD, 25 mg at 11/17/222135 oxyCODONE (ROXICODONE) immediate release tablet 5 mg, 5 mg, Enteral, Q6H PRN, Nghia Pryor MD, 5 mg at 11/17/22 233 pantoprazole-sodium bicarbonate 2mg/ml oral liquid 40 mg, 40 mg, Per Tube, Daily bef breakfast, Nghia Pryor MD senna-docusate (SENOKOT-S) 8.6-50 MG tablet 2 tablet, 2 tablet, Enteral, Daily PRN, Nghia Pryor MD tamsulosin (FLOMAX) 24 hr capsule 0.4 mg, 0.4 mg, Enteral, After Breakfast, Nghia Pryor MD triamcinolone (KENALOG) 0.1 % ointment, , Apply externally, BID PRN, Nghia Pryor MD verapamil (CALAN) tablet 40 mg, 40 mg, Enteral, Q8H SENDY, Nghia Pryor MD, 40 mg at 11/18/22 0558 Warfarin Per Policy, , Does not apply, Daily, Nghia Pryor MD Allergies Allergen Reactions Latex Objective Physical Exam: Vital Signs: Temp: [98.2 ??F (36.8 ??C)-98.9 ??F (37.2 ??C)] 98.9 ??F (37.2 ??C) Pulse: [92-94] 92 Resp: [16-20] 20 BP: (113-117)/(74-79) 113/74 Patient Vitals for the past 8 hrs: BP Temp Temp src Pulse Resp SpO2 11/18/22 0800 113/74 98.9 ??F (37.2 ??C) Oral 92 20 96 % BP 113/74 Pulse 92 Temp 98.9 ??F (37.2 ??C) (Oral) Resp 20 Ht 5' 4 (1.626 m) Wt 198 lb (89.8 kg) SpO2 96% BMI 33.99 kg/m?? Ht./ Wt./ BMI: Height: 5' 4 (162.6 cm) Weight: 198 lb (89.8 kg) Body mass index is 33.99 kg/m??. General Appearance: Alert, cooperative, in wheelchair Head: Wearing helmet. Right sided hemicraniectomy noted Eyes: Anicteric sclerae, moist conjunctivae, PERRL, EOMI Ears: No gross external deformities and no trauma appreciated, hearing grossly intact to normal voice Nose: No nasal drainage or sinus tenderness Throat: Oropharynx clear with MMM and no evident mucosal ulcerations; hard and soft palate WNL Neck: Supple, symmetric, trachea midline, no thyromegaly appreciated Lungs: Clear to auscultation bilaterally, respirations unlabored, on room air Chest wall: No tenderness or deformity Heart: RRR, no m/r/c/g appreciated Abdomen: Soft, non-tender, non-distended, no hepatosplenomegaly or other masses appreciated, normoactive bowel sounds Extremities: No calf tenderness or pain with ankle dorsiflexion bilaterally No clubbing or cyanosis No peripheral edema Pulses: 2+ and symmetric radial pulses Skin: PEG tube in place Normal temperature, turgor and texture Neurologic: A&Ox2 CN II-XII intact. Follows one step commands Speech fluent and comprehensible Flaccid LUE and LLE Sensation to light and sharp touch diminished LUE and LLE RUE and RLE strength intact Psychiatric: Affect appropriate Cooperative with examination Labs: Admission on 11/17/2022 Component Date Value Ref Range Status PT Seconds Blood 11/18/2022 14.1 12.1 - 14.8 sec Final INR 11/18/2022 1.2 (H) 0.9 - 1.1 Final WBC X(10)9/L Blood 11/18/2022 10.3 4.4 - 10.7 x10E9/L Final Rbc X(10)12/L Blood 11/18/2022 3.57 (L) 3.80 - 5.20 x10E12/L Final HGB gm/dL Blood 11/18/2022 10.6 (L) 12.0 - 15.6 gm/dL Final HCT % Blood 11/18/2022 34.2 (L) 35.9 - 45.5 % Final MCV fL Blood 11/18/2022 95.8 80.7 - 98.3 fl Final MCH pg Blood 11/18/2022 29.7 26.7 - 34.0 pg Final MCHC gm/dL Blood 11/18/2022 31.0 30.8 - 35.9 gm/dL Final Plt Ct X(10)9/L Blood 11/18/2022 541 (H) 153 - 416 x10E9/L Final RDW-Cv % Blood 11/18/2022 15.8 (H) 12.1 - 14.9 % Final MPV fL Blood 11/18/2022 10.9 9.4 - 12.9 fl Final Glucose mg/dL Blood 11/18/2022 106 (H) 70 - 105 mg/dL Final Sodium mmol/L Blood 11/18/2022 142 136 - 145 mmol/L Final Potassium mmol/L Blood 11/18/2022 4.1 3.5 - 5.1 mmol/L Final Chloride 11/18/2022 104 98 - 107 mmol/L Final CO2 11/18/2022 26 22 - 29 mmol/L Final Calcium mg/dL Blood 11/18/2022 9.2 8.4 - 10.4 mg/dL Final Anion Gap Blood 11/18/2022 12 6 - 16 mmol/L Final Bun mg/dL Blood 11/18/2022 16 5.3 - 18.7 mg/dL Final Creatinine 11/18/2022 0.77 0.57 - 1.11 mg/dL Final EGFRCR CKD-EPI 11/18/2022 >90 >=90 mL/min/1.73 m2 Final I personally reviewed the available referring hospital documentation. Imaging & Diagnostic Studies: No results found. I personally reviewed the available referring hospital documentation. For this initial visit, I reviewed the referring hospital chart documentation. I have summarized pertinent findings in my review of the referring hospital chart documentation in the HPI above. Any pertinent information from this chart review that I have determined to be applicable to the patient's current acute inpatient rehabilitation, will be specified in the assessment/plan below as well. Assessment: Patient Active Problem List Diagnosis Cerebrovascular accident Medical & Rehabilitation Plan: NTBI / Stroke Rehabilitation - Admitted to acute rehabilitation to address deficits related to recent CVA and NTBI - Physiatry for medical coordination and oversight during the rehabilitation process. - PT and OT to address gross motor skills, transfers and self-care. - [employer] for cognition, swallowing and communication. - Rehabilitation nursing to provide 24-hour nursing care and carry over of rehabilitation techniques. - Ongoing patient and caregiver education to facilitate discharge home. Case Management to assist with discharge planning, disposition needs. - Early mobilization to prevent medical complications: DVTs, orthostasis, pulmonary embolism, pneumonia, minimize effects of deconditioning. - Diet and exercise: continue to educate and encourage good nutrition choices and regular exercise.Therapists to help establish a home exercise program for discharge. - Encourage incentive spirometry - OOB during day for at least 3 hours at a time BID for increased arousal/wakefulness/conditioning. - Medical management as described below - Hospitalist service for assistance with management of medical comorbidities Skin/Wounds: - Skin integrity and Pressure ulcer prevention: frequent repositioning and adequate pressure relief. Maintain clean, dry skin. If needed, q2 hour turns when in bed and regular skin checks, application of protective barrier cream, toileting schedule, floating of heels when in bed - Falls prevention strategies and education ongoing. Bowel & Bladder - monitor for regular bowel movement at least q3days - adjust scheduled and PRN bowel regimen as needed - monitor for adequate urinary output - should suspicion for urinary retention arise, PVR of random bladder scan will be performed for further assessment Pain - current pain medication regimen consists of: acetaminophen 500 mg q6hr PRN, oxycodone 5 mg q4hr PRN - continue to evaluate pain and ability to participate effectively with therapies Acute R MCA CVA Left hemiplegia s/p TNK and MT and TICI2b revascularization on 10/19. Developed MCA syndrome s/p hemicrani. Therapy Worsening headache- CT head pending cerebral edema and midline shift s/p hemicraniectomy 10/20/22 Incision care R iliac and common femoral artery occlusion 10/30: R common femoral thrombectomy and patch angioplasty Warfarin Fever -ID on board -- glenis PEG fluid collection: Improved on abx - Urology replaced puentes (11/09-) TTE showed mobile aortic valve vegetation. IV abxs HTN Continue meds Migraine without aura Pian control Abn LFT Check hep screen Watch with statin FEN/GI: - Diet: Dietary Orders (From admission, onward) Start Ordered 11/17/221745 NPO Diet, Tube Feeding No Tray Strict NPO; Jevity 1.5; Tube Feeding Continuous rate (mL/hr): 50; Tube Feeding water flush (mL): 150; Water Flush type: Water; Water flush frequency: Every 4 hours Diet effective now End/Expires: Until Specified Question Answer Comment NPO Status: Strict NPO Tube Feeding Formula: Jevity 1.5 Tube Feeding Continuous rate (mL/hr): 50 Tube Feeding water flush (mL): 150 Water Flush type: Water Water flush frequency: Every [address] order in third green party system. Done 11/17/229 - RD consult DVT Prophylaxis: Lovenox , warfarin Pharmacologic and non-pharmacologic DVT prophylaxis considerations deferred to hospitalist service Precautions: Fall/Safety and Aspiration Code Status: Full Resuscitation Disposition: CHIN pending further discussion in Interdisciplinary Team Conference Follow-up appointments: As per referring hospital discharge paperwork instructions Follow-up with Primary Care Physician 1 week after discharge from acute inpatient rehabilitation Goals: Mobility: min assist-supervision Transfers: Modified Independent Self-Care: Modified Independent Prognosis: At the current time, this inpatient hospital rehabilitation stay is medically necessary to achieve important health and functional goals. The patient requires frequent physician visits, 24-hour rehabilitation nursing, and a coordinated intensive rehabilitation program as described above to address complex medical, nursing, and rehabilitation needs. The patient has a good prognosis for benefiting from this program and returning home and community. Anticipated Disposition: home Estimated Length of Stay: 10-14 days ROMY VILLAGRAN MD Physical Medicine & Rehabilitation documented in this encounter Nursing Notes * Marcella Orantes RN - 12/13/2022 10:18 AM CDT A/O- 4. Patient is cooperative. Pain level avg of: 4 Old PEG tube site. VS stable. Appetite good GI: Last BM on 12/10 * Shruti Minaya RN - 12/11/2022 6:32 PM CDT A,Ox4 No sign of SOB, dizziness, and chest pain. Provided intermittent straight cath with family (spouse and mother). At first re-demonstration, spouse straight cath patient with moderate assistance from nurse. Then, the second scheduled straight cath spouse done it with minimal assistance and cuing. Patient tolerated well. Call light and personal items are within in reach. Will continue to monitor. * Jovanni Riojas RN - 12/10/2022 4:39 PM CDT Vitals WDL, no major changes from previous assessment, no new clinical issues. Pain controlled. Call light within reach. * Cristhian Sofia - 12/08/2022 2:15 PM CDT PEG tube removed at bedside by Dr. Anderson. Patient tolerated procedure well. Dry dressing applied to site. * Diamond Bruno RN - 12/06/2022 6:31 PM CDT 1810: Pt cathed [id number] now clear yellow for a 688 bladder scan at 1730. Pt though she had had a BM but no BM noted. Pt states she is starting to feel uncomfortable with constipation. Agreed to have Supp places after urine cath. See MAR. Mom and at bedside. They were discussing the training they will need to have pt come home. Offered to have them give pt's 1800 PEG tube flush. declined but mom agreed and did well with 50ml PEG tube flush. 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 Pt agreed. * Diamond Bruno RN - 12/06/2022 3:21 PM CDT Pt cont to struggle with ability to void. Str Cath using non-latex catheter at 1330- for bladder scan of 388. Cath output 120-attempted crede and sitting pt up but unable to get more urine out. Urineextremely france and cloudy despite good PO intake of fluids today. Dr. Frias notified and UA/cx sent. * Diamond Bruno RN - 12/05/2022 3:54 PM CDT Pt wanting puentes pulled- needed to have latex free caths available first. Pt has feeling on left side of body but parathesia- would be touching pt's left heel- she would state this RN was touching the top of her foot. Would be holding her L gr toe but pt would state touching the bottom of her foot. Same thing occurred with pt's L hand- she could feel RN touching but unable to pinpoint location. * Hyun Barber RN - 12/04/2022 5:44 AM CDT Pt A&o x4, stable VS, room air, pain under control with prescribed meds, bladder scan Q6h and sraight cath if residual>350, medication crushed through peg/J tube, bed alarm is on, bed in low position, call light within reach, pt is resting at this moment will cont monitoring. * Tatianna Pan RN - 12/02/2022 6:38 PM CDT Patient bladder scanned this pm 510 ml intermittent cath completed with 700 ml of clear yellow urine returned. Small amount of whitish exudate noted in vaginal canal. Patient state she had a previousyeast infection and was treated with Diflucan. Voicing complaint of headache Oxycodone 5 mg po given. Call light in reach * Tatianna Pan RN - 12/02/2022 10:25 AM CDT Patient sitting up in chair since start feeling urgent to defecate O T in room, transferred to bedside commode . Dulcolax suppository given water turned on at faucet. Patient allowed to sit on bedside commode for twenty plus minutes with not stool expelled. Patient assisted back to bed. Tech to bedside patient bladder scanned for > 999ml feeling pressure. * Tatianna Pan RN - 12/01/2022 6:43 PM CDT Patient continues to voice nausea and headache throughout shift medicated as ordered. Up with therapy as ordered during shift. Call light kept in reach * Tatianna Pan RN - 12/01/2022 4:59 PM CDT Patient reassessed this pm briefs remain dry patient rescanned 456 ml noted. Patient cath for 375 ml of dark france urine returned, tolerated well. Call light in reach * Tatianna Pan RN - 12/01/2022 4:55 PM CDT Patient alert oriented x 4 voicing complaint of headache this am Oxycodone 5 mg po given early in shift. Patient sitting up in chair most of morning. Therapy to room working with patient during shift. Call light kept in reach * Tatianna Pan RN - 11/30/2022 6:46 PM CDT Patient awake in room family present bladder 285 ml this pm. Voicing no discomforts. Call light in reach * Tatianna Pan RN - 11/30/2022 2:11 PM CDT Patient alert oriented x 4 voicing complain of headache this am Tylenol 500 mg po given also verbalizing soreness at peg tube site. Patient bladder scanned this afternoon see readings in flow sheet. Patient still unable to void catheterized with 500 ml of dark france urine returned with sediment noted in urine. Thick purulent exudate noted to vagina canal prior to cleaning genital. Call light in reach * Tatianna Pan RN - 11/27/2022 6:21 PM CDT Patient alert oriented throughout shift voicing complaint of headache at intervals Tylenol 500 mg po given as ordered received relief post medication. Barium Swallow done this shift patient tolerateddiet advanced to Pureed 25 % eateN at dinner Speech Therapist at bedside during dinner intake. Dr. George notified of patient intake at dinner nurse instructed continue to keep tube feeding discontinued. Dr. Angeles notified of patient complaining of pressure in her bladder small amount on urine noted in urine drainage bag. Patient bladder scanned as ordered per doctor. > 999 ml. Order received to straight cath . 1300 ml received per craterization. * Marcella Orantes RN - 11/26/2022 12:26 PM CDT A/O- 4. Patient is cooperative. Pain level avg of: VS stable. Appetite- N/A on continuous tube feed. GI: Last BM on 11/25 * Marcella Orantes RN - 11/25/2022 1:18 PM CDT A/O- 4. Patient is cooperative. Pain level avg of: 4 head and R hip VS stable. Appetite- N/A on continuous tube feed. GI: Last BM on 11/25 * Gogo Weber RN - 11/24/2022 10:06 AM CDT Vitals: Stable Pain Level: 4 Pain Location: Headache PRN tylenol given. A&Ox4, delayed responses. Last BM: 11/24 Helmet applied when patient is out of bed. Continuous tube feeding 50mL/hr, Q4 water flushes. Puentes intact and draining, leg bag applied for therapy. * Gogo Weber RN - 11/23/2022 11:42 AM CDT Vitals: Stable Pain Level: 4 Pain Location: Headache PRN tylenol given. Patient requested PRN zofran with morning medications. A&Ox4, delayed response Last BM: 11/23 Helmet on when out of bed. Continuous tube feeding 50 mL/hr, Q4 water flushes. MD ordered to reinsert puentes. * Gogo Weber RN - 11/22/2022 9:27 AM CDT Vitals: Stable Pain Level: 3 Pain Location: Headache PRN tylenol given. A&Ox4, delayed responses Last BM: 11/21 Bladder scan Q4, straight cathing required if it is greater than 350 mL. Continuous feeding per pump Jevity 1.5, medications given per G tube. * Crissy Georges RN - 11/21/2022 5:47 PM CDT Patient alert and oriented x4, complained of headache Pain med was given PRN, g tube with feeding in place. Tolerating feeding well no nausea or vomit reported. VSS, at he bedside. Puentes cathremoved. Bed and chair alarm on and call light within reach. * Archie Loja RN - 11/20/2022 4:36 AM CDT Pt strictly NPO, alert and oriented x4, tube feeding on at 40mls/hr. No complain of bloating. Pt said would like rate not changed. HoB elevated. Turning and position done for comfort. Oral care done.Pt report some reflux. Retention catheter intact, secured with a statlock, draining by gravity. Hourly rounding maintained. Call light within reach * Archie Loja RN - 11/19/2022 6:47 AM CDT Pt asked for bedpan but no BM, offered prn stool softener at HS but declined, no complain of refluxthis morning. Tube feeding on per Dr. Bradley orders. Pt denies pain this morning * Archie Loja RN - 11/18/2022 11:30 PM CDT Pt c/o reflux, feeling of abdominal fullness. Pt NPO on continuous tube feeding. calliope player, Dr. Bradley, orders received to hold tube feeding tonight, do portable KUB tomorrow, tab zofran 4mg Q6hr prn via tube. Give pantoprazole as scheduled .Pt informed * Tatianna Pan RN - 11/18/2022 7:42 PM CDT Therapy back to bedside later in shift to continue therapy attempted to get patient out of bed, placed helmet on head and raise height of bed. Patient couldn't tolerate it. Dr. Bradley called CT scan ordered. Dr. Villagran also called later in shift and spoke with spouse. Call light in reach * Tatianna Pan RN - 11/18/2022 3:54 PM CDT Patient alert awake responding appropriately to verbal stimuli and following commands. Physical therapy to bedside placed helmet on head and patient started complaining of increased pain. After transferring to wheel chair therapy informed nurse that patient began to have increase in diaphoresis andincrease in more head pain. Patient placed back to bed. Nurse to bedside pain level reported 12/19.Therapist deferred to later time. Spouse at bedside. Call light in reach * Tatianna Pan RN - 11/17/2022 8:02 PM CDT 42 year old female admitted to floor per new admit vital stable. Voicing no complaint of discomfort. Oriented to room and floor procedures per. Nurse tech. Family in room at bedside. Call light in reach documented in this encounter Miscellaneous Notes * Plan of Care - Awidla Gonsalves RN - 12/14/2022 1:23 AM CDT Problem: Discharge Planning Goal: Discharge to home or other facility with appropriate resources Outcome: Progressing Flowsheets (Taken 12/02/2022 0329 by Hyun Barber RN) Discharge to home or other facility with appropriate resources: Identify barriers to discharge with patient and caregiver Arrange for needed discharge resources and transportation as appropriate Identify discharge learning needs (meds, wound care, etc) Refer to Case Management Department for Coordinating discharge planning for if the patient needs post-hospital services based on physician order or complex needs related to functional status, cognitive ability or social support system * PT Discharge Summary - Kellie Moran PT - 12/13/2022 7:38 PM CDT Physical Therapy Discharge Summary Patient Name: Consuelo Daryb Patient Birthdate: 1980 PT CURRENT FUNCTIONAL STATUS: PT Current Functional Status: PT Current Functional Status: Ms. Darby's functional status as follows: PRECAUTIONS: helmet to be worn when up moving, transfers. Can remove once up and sitting stationary. BED MOBILITY: Supine to sit = max A for trunk and L hemibody; cues for sonya-compensatory technique, sequencing, Lhemi-body attention Sit to supine = max A for trunk and L UE/LE; cues for sonya-technique, hooking L with R LE, sequencing, and safety Rolling L = min A to for trunk, inititaion/completion of task Rolling R = max A for L sonya-body, cues for sonya-compensatory techniques, L attention, safety TRANSFERS Transfer board = mod/max A for force production, balance, and LLE positioning/stability; L neglect noted; level surfaces only, practiced to R and L; sig improvement noted with fluency and safety going towards R Sit-stand with R sonya-aide = mod/max A for balance and L knee block, slight L lean; cues for safety, hand placement, and technique Stand-pivot without device = max A for balance and L knee block/positioning towards R, max/dep x1 toward L; cues for safety, technique, sequencing, and L attention; practiced to R and L; significantly improved sequencing and stability going towards R Car transfer = W/c to/from car simulator with use of transfer board to level seat: max of one and min of another for trunk control with management of left side in/out of car. W/c to/from pt own mini-van: trialed use of transfer board to very elevated surface or stand pivot to various sitting positions, then lift up to seat- max of one and mod of another to assist with positioning up on seat. Mechanical lift = Myra-flex stand lift for bed to/from w/c and for toileting at times (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 nursing staff) GAIT: up to 40' with R sonya-aide and max A x1 for balance and LLE management; 2nd person for w/c follow for safety; helmet, L sling for glenohumeral support, L francisco wrap for DF; notable initiation/trace movement of L hip flexion on swing at times; improved with cues and practice, though not consistent; assist to fully advance L swing and total assist to stabilize L knee from buckling required; pt progressed to being able to advance cane appropriately without physical assist - only required verbal cues Deviations include: sonya-paretic gait pattern, decreased wt shift R with lean L, L LE assist/stabilization as noted, L neglect, flexed posture, R head rotation Not safe to attempt 50, 150' Compliant surface: not safe to attempt Retrieval of an object from the ground: not safe to attempt STAIRS: Not safe to attempt 1, 4, 12 steps at this time. WHEELCHAIR MOBILITY Loaner manual w/c issued via [employer] - lightweight, contoured back, half lap tray, pressure relieving cushion, adjustable and removable arm/leg rests; propels 160' with mod/max A for steering, L neglect; repeated cues for safety, L awareness/visual scanning, and technique; increased time and effort required; utilizes R UE/LE to propel OUTCOME MEASURES: ABS - 15 PASS = 13/36 per prior notes 10MWT = not able to attempt at this time PROGRESS: Ms. Darby tolerated the session well. He Salo present for continued hands on training. Reviewed bed mobility, positioning. Transfers with use of transfer board and stand pivot. Car transfer to their mini van and other options. Reviewed mechanical sit to stand machine vs manual. DME: w/c, cushion through [employer]. Ordered mechanical lift from [facility]-- [facility] will be following up with the patient and [facility]. Other DME: transfer board and hospital bed ordered through [facility]. Ms. Darby has made noted progress during her rehab stay. Plan to be discharged to her home with family support and continued therapy at the [facility]. Good potential to continue to make progress. Factors in Goal Achievement: Facilitating Factors: Patient understanding and knowledge, Support of family or caregiver, Improvedfunctional mobility, Improved strength, Decrease in pain, Improved function and Improved balance Barriers: Strength limitations, Motor control deficits, Other (comment) and Balance deficits (Left inattention) Date Last Assessed: 12/13/2022 Patient needs assistance with the following activities: Balance, Sitting balance, Walking and/or mobility, Positioning, Rolling, Wheelchair management and Negotiating ramps or curbs Weight Bearing Status: Full - No restrictions throughout DME Recommendations Common Therapy DME: Hospital Bed, Transfer Board, Manual Lift, Manual Wheelchair (contacted [employer] regarding specialty w/c for home use) Hospital Bed - Type: Semi-Electric Hospital bed Manual Lift: Yar-xy-crenb Lift (Myra Flex stand lift) Specialty Mattres - Type: Low Air Loss, Other (comment) (significant immobility with left side, high risk of pressure injuries, requires assist for position changes.) Transfer Board - Type: 24 in without cutout CARE Scores Fields: 6: Independent. [place] provides no assistance with tasks. A device may or may not have been used. 5: Set-up or clean-up assistance. [place] sets up or cleans up, but does not assist with tasks. [place] may have assisted prior to or following the activity. 4: Supervision or touching assistance. [place] provides verbal cues or touching/steadying or contactguard assistance. Assistance may be provided throughout the activity or intermittently. 3: Partial/moderate assistance. [place] does less than half the effort. [place] lifts, holds, or supports trunk or limbs, but provides less than half the effort. 2: Substantial/maximal assistance. [place] does more than half the effort. [place] lifts or holds trunk or limbs, and provides more than half the effort. 1: Dependent. [place] does all of the effort, or the assistance of two or more helpers is required for the patient to complete the activity. -: Inconsistent or incomplete documentation Activity not attempted values: 7: Patient refused 9: Not applicable - Not attempted and the patient did not perform this activity prior to the current illness, exacerbation, or injury. 10: Not attempted due to environmental limitations (e.g., lack of equipment, weather constraints) 88: Not attempted due to medical condition or safety concerns Mcfp Goals: Goal Goal Status Discharge Status Car Transfer LTG: Partial/moderate assistance (Patient will complete car transfer with moderate assist to be able to transport in a personal vehicle.) Not Achieved assist of 2 Car Transfer - CARE Score: 1 (12/13/221943 : Kellie Moran, PT) N/A or No Goal Listed Walk 10 Feet - CARE Score: 1 (12/13/221943 : Kellie Moran, PT) N/A or No Goal Listed Walk 50 Feet with Two Turns - CARE Score: 88 (12/13/221943 : Kellie Moran, PT) N/A or No Goal Listed Walk 150 Feet - CARE Score: 88 (12/13/221943 : Kellie Moran, PT) N/A or No Goal Listed Walking 10 Feet on Uneven Surfaces - CARE Score: 88 (12/13/221943 : Kellie Fitzgerald PT) N/A or No Goal Listed 1 Step (Curb) - CARE Score: 88 (12/13/221943 : Kellie Moran PT) N/A or No Goal Listed 4 Steps - CARE Score: 88 (12/13/221943 : Kellie Moran PT) N/A or No Goal Listed 12 Steps - CARE Score: 88 (12/13/221943 : Kellie Moran PT) N/A or No Goal Listed Picking Up Object - CARE Score: 88 (12/13/221943 : Kellie Moran PT) Wheel 50 Feet with Two Turns LTG: Supervision or touching assistance (Patient will be able to wheel50 ft including navigating the environment with touching assistance.) Partially Achieved mod/max due to left inattention Wheel 50 Feet with Two Turns - CARE Score: 2 (12/13/221943 : Kellie Moran PT) N/A or No Goal Listed Wheel 150 Feet - CARE Score: 2 (12/13/221943 : Kellie Moran PT) Additional Goals: N/A PT Other Mcfp Goals Flowsheet Row Most Recent Value Other PT Ranch Helper Goals Other Goals - Mcfp Mcfp 1, Mcfp 2 Filed on: 11/18/20221056 Other Mcfp Goal 1 Patient will complete transfers with moderate assist of one person. Filed on: 11/18/20221056 Other Mcfp Goal 1 Status Not Achieved Filed on: 12/13/20221944 Other Ranch Hel[facility] Goal 2 Patient will complete bed mobility including rolling and supine<> sit transitions with minimal assistance. Filed on: 11/18/20221056 Other Mcfp Goal 2 Status Not Achieved Filed on: 12/13/20221944 Expected Achievement Date 12/15/22 Filed on: 11/18/20221056 Discharge Instructions given to patient: PT Discharge Instructions Current level of help needed at this time: Transfers: use the transfer board for more level transfers and recommend the mechanical lift as needed to varied surfaces or more prolonged standing. Walking: only walk with therapy at this time Wheelchair Use: use your right arm and leg to help move the chair with someone else helping the left side. Make sure to scan left and locate objects on left. Stair Climbing: not safe in stance at this time. Up and down a curb in wheelchair- POSITIONING: frequent position changes and use of the wedges for support. Can use left abductor wedge (pink) as needed to help keep left leg down while sleeping. Use pillows to support under heels orelbows and monitor for pressure redness. Should jonathan when touched and any redness should go away within 15 minutes. Can do standing with help of someone on your left. Have something to hold onto on your right and the helper pushes on left knee to keep it from buckling. Home Exercise Program: Continue following the exercise program that was instructed to you by your therapist prior to discharge. KELLIE MORAN, PT 12/13/2022 CHART CORRECTION: Type of Chart Edit: Addendum Reason for Correction: Additional information added (refreshed after initial signing to capture QI scores.) Name: Kellie Moran, PT Date: 12/13/2022 Time: 19:48 CDT * [employer] Discharge Summary - [facility] - 12/13/2022 5:18 PM CDT Speech Language Pathologist Discharge Summary Patient Name: Consuelo Darby Patient Birthdate: 1980 [employer] Current Functional Status: Ms. Darby is a 42 year-old female referred to speech therapy for evaluation and treatment followingrecent hospitalization with a diagnosis of stroke. Past medical history is significant for abdominal pain right upper quadrant, hemiplegic migraine, GERD, HTN. Prior to referral for a rehabilitation a dmission, patient did not require assistance for household ambulation, community level ambulation or self-care activities. 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 Ms. Darby's current functional status at discharge is as follows: SWALLOWING: A follow-up MBS was completed on 12/06/22 with results as follows: Significant improvement noted from prior swallow study performed on 11/27/22. Swallow initiation was timely with no pharyngeal residue observed. No aspiration observed with any consistency presented.Transient laryngeal penetration was observed x1 with thin liquid; no additional pharyngeal penetration observed. Patient presented with slowed mastication of the solid texture (cracker) due to left facial weakness. She was able to clear the oral cavity with only minimal residue remaining. TREATMENT RECOMMENDATIONS-- 1. Continue SOFT & BITE SIZED texture diet (IDDSI 6) 2. Begin THIN LIQUIDS (IDDSI 0) 3. Medications given whole with puree or with water as tolerated; may also be given through the PEG. 4. Upright for all PO intake 5. Slow rate during meals; Small bites/sips 6. Assist with set-up of tray. Monitor with meals and assist as needed. 7. Oral care following meals Patient's diet was upgraded to REGULAR texture with THIN LIQUIDS (IDDSI 7/0) on 12/08/22. COMPREHENSION: SUPERVISION. Patient is able to comprehend information regarding basic needs over 90% of the time. Increased difficulty noted with complex or abstract information. Patient presents with left visual impairment which interferes with reading comprehension and all visual tasks. EXPRESSION: MODIFIED INDEPENDENT. Patient is able to express information regarding complex or abstract topics with only mild difficulty. Speech is 100% intelligible. SOCIAL INTERACTION: MODIFIED INDEPENDENT. Patient interacts appropriately most of the time. She presents with flat affect and mildly reduced initiation. She presents with left side visual impairment which affects social interactions. PROBLEM SOLVING: MINIMAL ASSISTANCE. Patient solves routine problems at least 75% of the time. The Cognitive Linguistic Quick Test was completed. See results below. MEMORY: MODIFIED INDEPENDENT. Patient is able to recognize and remember people, routines, and requests with only mild difficulty. PROGRESS 11/20/22: Evaluation was completed on 11/18/22. All goals remain appropriate at this time dueto limited number of sessions thus far. PROGRESS 11/27/22: Ms. Darby has made significant improvement this week in therapy. A MBS was completed and recommendation made to begin a PO diet of Pureed food items with Mildly Thick Liquids. Patient's speech intelligibility has improved so that she is fully intelligible. Improvement noted in functional problem-solving skills for routine daily tasks. She is able to remember familiar people and events at least 75% of the time. Overall endurance and participation in therapy tasks is improved. PROGRESS 12/04/22: Ms. Darby is seen for speech therapy 45 minutes daily for swallowing, communication and cognitive interventions to improve patient's swallowing safety and functional communication and cognitive abilities. She continues to make good progress in therapy. She is managing a pureed texture diet with mildly thick/nectar liquids. The SM Water Protocol was initiated on 11/30 and patient is tolerating with no difficulty reported. She participated in Neuromuscular Electrical Stimulation (PENS) 3x per week. A follow-up MBS is planned for this week. Patient's participation in therapy tasks is improved. Patient presents with left visual impairment, which limits her ability to perform written activities and to complete a formal cognitive assessment. The Cognitive Linguistic Quick Test is in progress. Patient participated in discussion of stroke risk factors and prevention. PROGRESS 12/11/22: Ms. Darby is seen for speech therapy 45 minutes daily for swallowing, communication and cognitive interventions to improve patient's swallowing safety and functional communication and cognitive abilities. She continues to make good progress towards her speech therapy goals. Patient's diet was upgraded this week to REGULAR texture with THIN LIQUIDS. The Cognitive Linguistic QuickTest was completed with results revealing severe impairments in attention, executive functions, andvisuospatial skills. Memory and language skills scored WNL. Patient's left visual impairment impedes her performance on tasks targeting attention and executive skills. Improvement noted this week in v erbal expression and functional memory skills for recall of people, daily events, and new information. DISCHARGE PLAN/RECOMMENDATIONS: Ms. Darby will be discharged home with her family providing assistance on 12/14/22. She will benefit from continued speech therapy services at the [facility] to further address functional cognitive skills for increased safety and independence in her home environment and to eventually return to her prior level of employment. Consuelo Darby: [X ]is able to state 2 risk factors without VCs prior to discharge [ ]requires cues to recall 2 stroke risk factors [ ] Is unable to state stroke risk factors due to communication or cognitive deficits; Education not yet completed. Facilitating Factors in Goal Achievement: Patient compliance, Patient understanding and knowledge, Progress to date, Improvement in swallow function, Improvement in cognitive skills, Improvement in communication skills and Support of other(s) Barriers to Goal Achievement: Communication deficits, Other (comment) and Visual inattention/neglect (cognition;) Date Last Assessed: 12/13/2022 Mcfp Goals: Goal Goal Status Discharge Status Level of Assistance to Meet Auditory Comprehension: Standby (less than 10%) Auditory Comprehension Details: Demonstrate auditory comprehension of complex questions, directions, and conversation to meet needs, complete tasks and interact socially with others within functionalliving environments Auditory Comprehension Expected Achievement Date: 12/02/22 Achieved Supervision N/A or No Goal Listed N/A or No Goal Listed N/A or No Goal Listed N/A or No Goal Listed N/A or No Goal Listed Level of Assistance to Meet Memory: Standby (less than 10%) Memory Details: Demonstrate functional memory skills for recall of information relating to people, routines, overall health, and safety within functional living environments Memory Expected Achievement Date: 12/02/22 Achieved Modified independent N/A or No Goal Listed Level of Assistance to Meet Motor Speech: Min assist (10-24%) Motor Speech Details: Demonstrate functional speech intelligibility in multiple environments through self monitoring and implementation of newly learned strategies and exercises Motor Speech Expected Achievement Date: 12/02/22 Achieved Modified independent N/A or No Goal Listed Level of Assistance to Meet Swallowing: Standby (less than 10%) Swallowing Details: Safely consume a regular diet with all liquids with no overt signs or symptoms of aspiration or post swallow distress Swallowing Expected Achievement Date: 12/02/22 Achieved Regular texture with thin liquids N/A or No Goal Listed Additional Goals: N/A Discharge Instructions given to patient: [employer] Discharge Instructions Swallowing Recommendations: Current Diet: IDDSI 7- Regular (RG7): Normal everyday solid foods. No restriction on piece size or texture of food. Biting and chewing required. and IDDSI 0- Thin Liquids - all liquids- no restrictions (Tn0): Flows like water. Syringe Flow Test - Less than 1 ml remaining in a 10 ml syringe after 10sec of flow.. Swallow Safety / Strategies: Check that your mouth is clear after eating, Eat and drink slowly. Be sure to swallow each bite or drink before taking your next bite of food or drink, Sit all the way upwhen eating and drinking, Take small bites of food, and Take small sips of liquid. Level of Supervision at Meals: You need help setting up your tray for meals. Communication: Your primary mode of communication is verbal. Current status and/or level of assistance required for Communication and Thinking skills on discharge: Understanding: You will not need anyone to help you understand spoken information, instructions, and conversation. Reading: You will need someone to help you understand simple written information. Communication: You will not need anyone to help you communicate. Completing Tasks: You will need someone to help you complete complex tasks such as meal preparation, following daily routines, managing finances. Memory: You will need someone to help you remember information but are able to use written reminders with assistance. Noise / Stimulation: You do best with a low stimulation environment (lights off, TV off, closed door, speaking softly, one person in room at a time). [facility] [address] 12/13/2022 * OT Discharge Summary - Bridgett Evangelista, OT - 12/13/2022 1:34 PM CDT Occupational Therapy Discharge Summary Patient Name: Consuelo Darby Patient Birthdate: 1980 OT Current Functional Status: Ms. Darby's status at time of discharge is as follows: EATING: with supervision using right UE ORAL HYGIENE: with set up assistance using right UE at wheelchair level TOILETING: with dependence, requires assistance of 2 people (assist of one person with standing andanother person for clothing management and hygiene) SHOWER/BATHING: with maximal assistance, used long handled sponge; she needed assist for thoroughness with washing feet/legs, buttocks and underarms. She was seated on rolling shower chair throughoutower. Aquaguard dressing used to cover former GI site, but dressing did get wet--nurse informed and changed dressing after shower. Helmet removed for hair washing. Ms. Darby did not stand during shower. UPPER BODY DRESSING: with maximal assistance, Ms. Darby attempted to assist pulling shirt over torso and assisted therapist with unthreading/threading shirt over head. Ms. Darby assisted with threading left UE and required assistance to thread right UE. Ms. Darby was able to unthread shirt over left and right UE. Ms. Darby requires assistance with sports bra LOWER BODY DRESSING: with dependence, Ms. Darby required assistance to cross left LE over right knee to thread pants over feet, Ms. Darby assisted by lifting her right LE into pant leg. Ms. Darby required assistance of one to stand and assistance of another to pull clothing up over hips FOOTWEAR: with maximal assistance, able to assist with doffing right sock and shoe, assist needed with all other aspects when sitting in wheelchair ROLL LEFT/RIGHT: with minimal assistance rolling to left using bed rail and maximal assistance rolling to right using bed rail SIT TO LYING: with dependence, using assist of 2 for safety LYING TO SITTING: with maximal assistance of one with increased time SIT TO STAND: with maximal assistance with support for left knee and hip while standing BED TO CHAIR TRANSFER: with maximal assistance using sliding board TOILET TRANSFER: with moderate to maximal assist of one to transfer to right onto bariatric commode, 2 person assit for safety transferring to commode to w/c on left side. Ms. Darby continues to present with no active movement in left UE. Increased tone in left shoulder.Left neglect with right gaze preference, however, Ms. Darby able to look towards left with cues. Ms. Darby requires increased time to process information and requires cues for safety and memory. Ms. Darby would benefit from continued OT services to work on maximizing functional independence. Recommend Ms. Darby use roll in shower, drop arm commode, sliding board, and stand lift for increased safety with transfers at home. Ms. Darby to be discharged home with family on 12/14/[address] [facility] and then services to follow. Facilitating Factors in Goal Achievement: Patient understanding and knowledge, Patient compliance, Patient motivation, Use of compensatory strategies, Support of family or caregiver, Support of significant other, Improved cognition, Improved functional mobility, Improved balance, Improved function and Decrease in pain Barriers to Goal Achievement: Pain, Strength limitations, ROM limitations, Balance deficits, Diminished endurance, Tone deficits, Decreased safety awareness, Cognitive deficits and Visual deficits Date Last Assessed: 12/13/2022 Patient needs assistance with the following activities: Activities of daily living, Going out in the community, Memory, Use of patient user experience manager, Use of bathroom equipment, Vision, Positioning, Rolling,Sitting balance and Reaching Will patient require a prosthetic or orthotic device upon discharge: No DME Recommendations Common Therapy DME: Commodes Commode - Type: Drop Arm Commode (patient is unable to access restroom; currently she is using a lift to transfer on and off of BSC, but she may progress to lateral transfers with sliding board in the future.) CARE Scores Fields: 6: Independent. [place] provides no assistance with tasks. A device may or may not have been used. 5: Set-up or clean-up assistance. [place] sets up or cleans up, but does not assist with tasks. [place] may have assisted prior to or following the activity. 4: Supervision or touching assistance. [place] provides verbal cues or touching/steadying or contactguard assistance. Assistance may be provided throughout the activity or intermittently. 3: Partial/moderate assistance. [place] does less than half the effort. [place] lifts, holds, or supports trunk or limbs, but provides less than half the effort. 2: Substantial/maximal assistance. [place] does more than half the effort. [place] lifts or holds trunk or limbs, and provides more than half the effort. 1: Dependent. [place] does all of the effort, or the assistance of two or more helpers is required for the patient to complete the activity. -: Inconsistent or incomplete documentation Activity not attempted values: 7: Patient refused 9: Not applicable - Not attempted and the patient did not perform this activity prior to the current illness, exacerbation, or injury. 10: Not attempted due to environmental limitations (e.g., lack of equipment, weather constraints) 88: Not attempted due to medical condition or safety concerns [place] Goals: Goal Goal Status Discharge Status Eating LTG: Supervision or touching assistance Achieved Eating - CARE Score: 4 (12/13/221333 : Bridgett Evangelista OT) Oral Hygiene LTG: Supervision or touching assistance Achieved Oral Hygiene - CARE Score: 5 (12/13/221333 : Bridgett Evangelista OT) Toileting Hygiene LTG: Partial/moderate assistance Not Achieved decreased balance, strength, coordination, cognition/visual perception ,left UE function Toileting Hygiene - CARE Score: 1 (12/13/221333 : Bridgett Evangelista OT) Shower/Bathe Self LTG: Partial/moderate assistance Not Achieved decreased balance, strength, coordination, cognition/visual perception Shower/Bathe Self - CARE Score: 2 (12/13/221333 : Bridgett Evangelista OT) Upper Body Dressing LTG: Partial/moderate assistance Not Achieved decreased balance, strength, coordination, cognition/visual perception Upper Body Dressing - CARE Score: 2 (12/13/221333 : Bridgett Evangelista OT) Lower Body Dressing LTG: Partial/moderate assistance Not Achieved decreased balance, strength, coordination, cognition/visual perception Lower Body Dressing - CARE Score: 1 (12/13/221333 : Bridgett Evangelista OT) Putting On/Taking Off Footwear LTG: Partial/moderate assistance Not Achieved decreased balance, strength, coordination, cognition/visual perception Putting On/Taking Off Footwear - CARE Score: 2 (12/13/221333 : Bridgett Evangelista OT) N/A or No Goal Listed Roll Left and Right - CARE Score: 2 (12/13/221333 : Bridgett Evangelista OT) N/A or No Goal Listed Sit to Lying - CARE Score: 1 (12/13/221333 : Bridgett Evangelista OT) N/A or No Goal Listed Lying to Sitting on Side of Bed - CARE Score: 2 (12/13/221333 : Bridgett Evangelista OT) N/A or No Goal Listed Sit to Stand - CARE Score: 2 (12/13/221333 : Bridgett Evangelista OT) Chair/[id number] Transfer LTG: Partial/moderate assistance Not Achieved decreased balance, strength, coordination, cognition/visual perception Chair/[id number] Transfer - CARE Score: 2 (12/13/221333 : Bridgett Evangelista OT) Toilet Transfer LTG: Partial/moderate assistance Not Achieved decreased balance, strength, coordination, cognition/visual perception Toilet Transfer - CARE Score: 1 (12/13/221333 : Bridgett Yost OT) Additional Goals: N/A Discharge Instructions given to patient: OT Discharge Instructions Current functional status and/or level of assist required for Activities of Daily Living upon discharge: Oral Care: you need someone to set you up with oral care items, encourage to look towards left for items Dressing: you need someone to set clothes out and help with dressing both upper and lower body dressing. Remember when dressing you will always start with dressing the weaker side. When undressing, you will start with the stronger side. When you are helping with dressing, you should be sitting up in a wheelchair so you have the support for your sitting balance. If you are sitting in the wheelchair, you will have to have someone stand with you and another person to pull clothing over hips. You might need to use stand lift to assist with standing and pulling clothing over hips, however, watch balance to left side. When you are in bed, you should roll side to side to get your shirt down over back and pants over buttocks. Bathing: You should either perform sponge bathing or use roll in shower chair. If in wheelchair, you will need someone stand with you while another person assists with cleaning glenis area and buttocks, or use stand lift, however, watch balance to left side. If in shower chair, do not stand at this time from chair, access area in shower chair to clean glenis area and buttocks. You have the long handled sponge that you should try to keep using to help with washing lower body. Toileting: if sitting on drop arm commode, you will need either 2 people to help (one to stand you and another to help with hygiene and clothing management), you can use stand lift to be able to perform clothing management and hygiene, however, watch balance to left. Precautions: Splint: wear your left arm splint at night and watch for skin break down Preventing edema in your hand: support left arm on lap tray or pillow Shoulder Pain: support left arm on lap tray or pillow, use sonya sling for transfers only Vision: Remember to look to your left when performing any activities. Home Exercise Program: Continue following the exercise program that was instructed to you by your therapist prior to discharge. BRIDGETT EVANGELISTA OT 12/13/2022 CHART CORRECTION: Type of Chart Edit: Addendum Reason for Correction: Additional information added (added discharge instructions) Name: MOLYL Sullivan/Amy Date: 12/13/2022 Time: 13:57 CDT * PT Treatment Note - Kellie Moran, PT - 12/13/2022 1:15 PM CDT PT Treatment Patient Name: Consuelo Darby Patient Birthdate: 1980 Patient Subjective Report - pt reports feeling ok, ready for therapy. Salo present for training. Pain Assessment Pain Context: Therapy Assessment Prior to Treatment (12/13/22 131) Pain Assessment: NRS 0-10 (12/13/22 131) Bed Mobility Comment: Sit to/from supine with max assist for left side lift assist, positioning. Rolls left with min to complete movement. To right with mod/max assist for left side support, complete movement Trials/Comments1: W/c to/from level surface of bed with use of transfer board: mod/max assist for left leg block, management, trunk control. cues to scan/attend to left. Trials/Comments 2: Sit to stand/pivot with max assist to block left leg, balance assist. use of right UE support on bedrail or armrest. Trials/Comments 3: W/c to/from pt own mini-van: trialed use of transfer board to very elevated surface or stand pivot to various sitting positions, then lift up to seat- max of one and mod of anotherto assist with positioning up on seat. Therapeutic Activities and Neuromuscular Re-education: Pt present for training. He performed w/c to/from level hospital bed with use of transfer board: mod/max assist. Incidental cuing by therapist for technique but able to perform safely. Salo performed sit to/from supine with max assist for left side positioning, lift assist. Discussed use of draw sheets/bruno pads in hospital bed, positioning, etc. Voiced and demonstrated understanding. Pt brought outside to assess actual car transfer to their mini van. Lots of assessment and discussion of options due to high seat height and distance back to seat location. Trailed long transfer board and high incline: completed with max of one and mod of another, 6inch block under pt feet to provide more push by pt right leg. Max to bring pt around to fully sit on seat. Going out of car: completed stand pivot to right side by pt with max assist to block left leg, balance. Trialed stand pivot to car floor, sit in front of passenger seat. Then use of block under foot to bring pt higher with partial stand lift and assist to bring hips back to car seat. Improved positioning. Multiple possibilities with pt building lift block/step to assist. Also discussed immediate use of family member car vs van for improved seat height, safety with transfer. Pt and Salo demonstrated and voiced understanding. Return to gym for training on stand lift. Positioned pt into manual Myra Steady lift- mod/max support on left to come to stand and steady while positioning hip pads for sitting. Demonstrated x2 and discussed level of assist with manual lift. Then demonstrated mechanical sit to stand lift- Myra Flexlift. Educated on use of sling, positioning, technique. Discussed ability to maintain stance to allow improved pressure relief, toileting, standing activity as pt gets stronger. Pt and both voiced desire for use of the mechanical lift in the home. Special Test and Outcome Measures: Agitated Behavior Scale and Postural Assessment of Stroke Patients (PASS) ABS: 15 PASS: Wheelchair cushion modifications or changes: Pt in loaner w/c from [employer] Demonstrated breakdown of w/c to Salo and pt Positioning of cushion Pressure relief with sit to stand, positioning. Voiced understanding. PT Treatment Outcomes:: Patient and family education progressing as expected, Safety device reapplied and Patient tolerated treatment well PT Summary:: Ms. Darby tolerated the session well. He Salo present for continued hands on training. Reviewed bed mobility, positioning. Transfers with use of transfer board and stand pivot. Car transfer to their mini van and other options. Reviewed mechanical sit to stand machine vs manual. DME: w/c, cushion through [employer]. Ordered mechanical lift from [facility]-- [facility] will be following up with the patient and Salo. [facility] Darby has made noted progress during her rehab stay. Plan to be discharged to [facility] with family support and continued therapy at the [facility]. Good potential to continue to make progress. Pain Evaluation and Follow-up Pain Reassessment: 0, No pain (12/13/22 1415) Therapy Minutes Individual Concurrent Co-Treat Individual (PT) Time In : 1315 Time Out: 1458 Total Time with Patient (Min): 103 min KELLIE MORAN, PT 12/13/2022 * Plan of Care - Marcella Orantes RN - 12/13/2022 10:18 AM CDT Problem: Infection Goal: Absence of infection and prevention of transmission during hospitalization Outcome: Progressing Problem: Knowledge Deficit Goal: Patient and/or family demonstrate readiness to learn Outcome: Progressing Goal: Patient and/or family verbalizes understanding of education, and/or performs desired skill Outcome: Progressing Problem: Discharge Planning Goal: Discharge to home or other facility with appropriate resources Outcome: Progressing Goal: supervisor engraving will develop a plan to decrease their burden and enhance comfort in role Outcome: Progressing Problem: Delirium Goal: Prevent and Manage Delirium Outcome: Progressing Problem: Fall Prevention: Neglect/Hemiparesis Bundle Goal: Patient will be free from Fall Injury Outcome: Progressing Problem: Fall Safety: [place] Precautions Goal: Free from fall injury Outcome: Progressing Problem: Fall Huddle Goal: Free from Fall Injury Outcome: Progressing Problem: Knowledge Deficit Goal: Patient/Family demonstrated knowledge and consent signed for surgery intervention Outcome: Progressing Goal: Patient/Family demonstrated decreased anxiety Outcome: Progressing Problem: Wound Infection Goal: Sterile techinque maintained Outcome: Progressing Goal: No allergic reaction occurred Outcome: Progressing Problem: Fluid Imbalance Goal: Patient fluid balance maintained Outcome: Progressing Problem: Injury Goal: Patient wound closed with all sharps, sponges, instruments and foreign bodies accounted for Outcome: Progressing Goal: Patient/Personnel protected for unnecessary radiation exposure Outcome: Progressing Goal: Patient free of injury related to surgical positioning Outcome: Progressing Goal: Safety precautions taken accordingly to the [facility] standards Outcome: Progressing Goal: Skin integrity maintained Outcome: Progressing Goal: Equipment meets performance and safety criteria Outcome: Progressing Problem: Pain Goal: Patient's Pain/Discomfort is Manageable Outcome: Progressing * OT Treatment Note - Bridgett Evangelista OT - 12/13/2022 9:02 AM CDT Occupational Therapy Treatment Patient Name: Consuelo Darby Patient Birthdate: 1980 Patient Subjective Report - I am anxious to get home. I haven't be home in 2 months Pain Assessment Pain Context: Therapy Assessment During Treatment (12/13/22904) Pain Assessment: NRS 0-10 (12/13/22904) Pain Score: 5 - Moderate Pain (12/13/22904) Pain Severity - NRS (Calculated): Moderate (12/13/22904) Pain Type: Acute pain (12/13/22904) Pain Location: Hip (12/13/22904) Pain Orientation: Left (12/13/22904) Pain Descriptors: Aching (12/13/22904) Pain Onset: Ongoing (12/13/22904) Pain Frequency: Constant/continuous (12/13/22904) Aggravating Factors: Activity Duration, Positioning (12/13/22904) Pre-therapy pain intervention required: Patient expressed pain is tolerable/able to proceed, Nurse notified (12/13/22904) Pain Interventions Education Provided: Patient (12/13/22904) Non-Pharmacologic Pain Interventions: Distractions, Exercise/Activity, Position/Reposition, Rest (12/13/22904) Emotional/Spiritual Pain Interventions: Emotional Support (12/13/22904) ADL Training: ADL Training Narrative: EATING: with ORAL HYGIENE: with TOILETING: with SHOWER/BATHING: with maximal assistance with sponge bathing at sink, Ms. Darby was able to wash/dryface, part of chest and abdomen while sitting, however, requires assist for thoroughness of tasks, Ms. Darby requires assistance for washing/drying bilateral UE and LE this date. UPPER BODY DRESSING: with maximal assistance, Ms. Darby attempted to assist pulling shirt over torso and assisted therapist with unthreading/threading shirt over head. Ms. Darby assisted with threading left UE and required assistance to thread right UE. Ms. Darby was able to unthread shirt over left and right UE. LOWER BODY DRESSING: with dependence, Ms. Darby required assistance to cross left LE over right knee to thread pants over feet, Ms. Darby assisted by lifting her right LE into pant leg. Ms. Darby required assistance of one to stand and assistance of another to pull clothing up over hips FOOTWEAR: with maximal assistance, able to assist with doffing right sock and shoe, assist needed with all other aspects Transfer Training: Transfer Narrative: ROLL LEFT/RIGHT: with SIT TO LYING: with LYING TO SITTING: with SIT TO STAND: with maximal assistance of one for static standing BED TO CHAIR TRANSFER: with TOILET TRANSFER: with OT Therapeutic Activity: Endurance: Rest breaks as needed. Patient Education: Ms. Darby's , Salo, face timed her during session. Therapist spoke to Ms. Darby and her and discussed bathroom set up for shower and information regarding left UE ROMexercises. Both Ms. Darby and verbalized understanding. Cognition: Cues for safety Other: Ms. Darby was issued dycem this date and educated in use of dycem. She verbalized understanding. Treatment, Outcomes and Plan: OT Narrative:: Ms. Darby tolerated tx with rest breaks. She is to be discharged home with family on12/14/[address] [facility] and then services to follow. OT Treatment Outcomes:: Safety device reapplied, Patient tolerated treatment well, Patient is progressing toward STG(s), Goals met for this session, Cues needed for safety, Improved ADL performance and Improved balance and coordination OT Summary Plan of Care: to be discharged on 12/14/22. Pain Evaluation and Follow-up Response to Therapy Interventions: Improved activity tolerance (12/13/22946) Pain Reassessment: 4 (12/13/22946) Nursing notified of patient's pain assessment: Primary Nurse (12/13/22946) Therapy Minutes Individual Concurrent Co-Treat Individual (OT) Time In : 901 Time Out: 946 Total Time with Patient (Min): 45 min BRIDGETT EVANGELISTA OT 12/13/2022 CHART CORRECTION: Type of Chart Edit: Addendum Reason for Correction: Additional information added (added information regarding issuing dycem thisdate) Name: MOLLY Sullivan/Amy Date: 12/13/2022 Time: 14:39 CDT * [employer] Treatment Note - [facility] - 12/13/2022 8:15 AM CDT Speech Language Pathologist Treatment Patient Name: Consuelo Darby Patient Birthdate: 1980 Patient Subjective Report - [facility] Pain Assessment Pain Context: Therapy Assessment Prior to Treatment (12/13/22819) Pain Assessment: NRS 0-10 (12/13/22819) Pain Score: 4 - Moderate Pain (12/13/22819) Pain Severity - NRS (Calculated): Moderate (12/13/22819) Pain Location: Hip (12/13/22819) Pain Orientation: Left (12/13/22819) Pain Descriptors: Aching (12/13/22819) Pain Onset: Ongoing (12/13/22819) Pre-therapy pain intervention required: Patient expressed pain is tolerable/able to proceed (12/13/22819) Pain Interventions Non-Pharmacologic Pain Interventions: Distractions (12/13/22819) Emotional/Spiritual Pain Interventions: Emotional Support (12/13/22819) Cognitive Communication: Functional problem solving, Initiation, Orientation, Task persistence, Short-term memory, Insight, Compensatory techniques for cognition, Immediate memory, Organization, Planning and sequencing and Self monitoring Patient/Caregiver Training: Cognitive Communication Disorder, Cognitive strategies, Completed with patient and Therapy goals and treatment plan ST Narrative:: Patient sitting upright awake/alert in wheelchair; agreeable to speech therapy. Patient AxOx4; on room air. Eyeglasses in place; pleasant and cooperative; on room air. DC BIMS 14. Patient with adequate functional recall of upcoming discharge from [facility] hospital to home and various speech tasks completed at hospital stay, including dysarthria, dysphagia, and memory. She is observed tolerating multiple thin liquid trials via large bore straw t/o session without clinical s/s aspiration. Patient participated in structured conversation/review re: cognitive impairments as it r/t home safety, with upcoming discharge 12/14 to home. Information including cognitive impairemtns with fall risk, safety concerns for discharge, family considerations (daily tasks, ADLs, iADLs), level of supervision with ADLs/iADLs, reviewed executive functions and common effects of impaired executive functions, and various ideas of cognitve stimulation at home (ie. iPad, card games, jigsaw puzzles, crossowrd puzzles, word searches, etc) with return undersatnding and demonstration performed. Following structured conversation/review, patient receiving phone call re: upcoming bill payments and auto pay. 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 Patient demonstrating deficit in L inattenti on/neglect, requiring increased cues to locate pen on L side of bedside table to write down number.Continued education completed re: L inattention/neglect strategies, including verbal rehearsal of look to the left and highlighting visual field (ie. Papers, table, etc) on L side. Patient demonstrating strength in planning/sequencing/reasoning as it r/t assistance needed as homeupon discharge, including verbalizing various family members who will assist with ADLs/iADLs (ie. Driving, cooking, medication management, bill payments, etc), transfer status and assistance/education required for , requesting assistance PRN for ADLs/iADLs upon discharge. Patient will benefit from DI/outpatient ST services upon discharge from [facility] hospital. Patient remained up sitting in chair at end of session with pelvic positioning belt on, chair alarmin place, call light and phone within reach. ST Session Outcomes: Tolerated treatment well, Patient/family education progressing and Progressingtoward STGs ST Summary Plan of Care: Continue with current plan of care Pain Evaluation and Follow-up Pain Reassessment: 5 (12/13/22858) Nursing notified of patient's pain assessment: Primary Nurse (12/13/22858) Therapy Minutes Individual Concurrent Co-Treat Time In : 0815 Time Out: 0900 Total Time with Patient (Min): 45 min Missed Minutes : [address] 12/13/2022 * Plan of Care - Awilda Gonsalves RN - 12/12/2022 11:28 PM CDT Problem: Infection Goal: Absence of infection and prevention of transmission during hospitalization Outcome: Progressing Flowsheets (Taken 12/02/2022 1118 by Tatianna Pan RN) Absence of infection and prevention of transmission during hospitalization: Assess and monitor for signs and symptoms of infection and vital signs Monitor lab/diagnostic results Administer medications as ordered * [employer] Treatment Note - [facility] Mehdi - 12/12/2022 1:01 PM CDT Speech Language Pathologist Treatment Patient Name: Consuelo Darby Patient Birthdate: 1980 Patient Subjective Report - I think that helped me a lot. Pain Assessment Pain Context: Therapy Assessment Prior to Treatment (12/12/22 1301) Pain Assessment: None/denies pain (12/12/22 1301) Cognitive Communication: Visual strategies, Task persistence, Processing information of increased length or complexity, Semi-complex to complex attention, Regulation/impulse control, Short-term memory, Immediate memory, Organization, Planning and sequencing, Self monitoring, Speed of processing, Daryl bal organization and Insight Recommended diet: Pills Can Be Taken with Recommended Liquid Consistency, IDDSI 7 - Regular / Regular and IDDSI 0 - Thin Liquids / All Liquids (Softer food selections) Compensatory swallowing techniques: Small bites, Small sips, Eat slowly-control rate, Oral care post PO intake and Seated upright with all PO intake Level of supervision at meals recommended: Assistance with set-up and Distant supervision Patient/Caregiver Training: Completed with patient, Therapy goals and treatment plan, Communicationstrategies, Swallow strategies, Oral hygiene, Current diet and Dysphagia Is patient a candidate for SM Water Protocol? N/A - patient is on IDDSI 0 (thin liquids/all liquids) - has no liquid consistency restrictions ST Narrative:: 1. Patient was seen for therapy in her room, positioned upright in bed; alert and cooperative with all tasks. 2. Patient completed a written direction following task which had been initiated during yesterday'ssession. She was able to read instructions and place words in the correct location on a chart (right/left column according to number) with minimal assistance required. Improvement noted when the paper was placed in an upright position instead of flat on the table. 3. Patient completed a trail making task to target left visual attention and tracking skills with moderate assistance required (improvement noted from similar task performed yesterday). 4. Patient was able to follow auditory instructions by placing pictures in the correct location on a 3x3 grid with 80% accuracy. 5. Patient completed a simple picture matching task using a 4x4 grid with minimal cues required. 6. Patient was able to locate information in functional reading material to answer questions with minimal assistance required. 7. Patient remained in her room with call light and phone left within reach. Chair alarm activated. ST Session Outcomes: Patient/family education progressing, Progressing toward STGs, Tolerated treatment well, Minimal cues during session and Moderate cues during session ST Summary Plan of Care: Continue with current plan of care Pain Evaluation and Follow-up Pain Reassessment: 0, No pain (12/12/22 1347) Nursing notified of patient's pain assessment: Not indicated - pain score 2 or less (12/12/22 1347) Therapy Minutes Individual Concurrent Co-Treat Time In : 1301 Time Out: 1348 Breaks/Pauses (Min): 0 mins Total Time with Patient (Min): 47 min Missed Minutes : [address] 12/12/2022 * Non-treatment Therapy Note - ST Shauna - 12/12/2022 11:15 AM CDT Prior to team conference, the Primary Therapist Peyton Wolfe MS CCC-SEA [employer] LAND OFFICER and I have communicated regarding current patient status, progress towards goals, and modifications to plan of care, as appropriate. * Team Conference - JESSY Zuniga - 12/12/2022 11:15 AM CDT Team Conference Note Date: 12/12/2022 Time: 10:36 AM CDT Patient Name: Consuelo Darby Date of : 1980 Sex: Female Room/Bed: 303/303-1 Admit Date/Time: 11/17/2022 4:00 PM Patient Active Problem List Diagnosis Date Noted Trochanteric bursitis of left hip 12/08/2022 Cerebrovascular accident 11/17/2022 Hypertension 10/19/2022 Team Members Present: Attendees: Yamileth Frias MD, Troy Allen RN, Roberto Lee OT, Myra ST Larson StaceyA. Welch, PT (Karma Lucas [facility]) Stable Helper in Attendance: JESSY Zuniga Patient/Family Present: Patient Present: No Patient's Family/Caregiver Present: No Anticipated Discharge 12/14/2022 Discharge Plan: Discharge Destination Details : Own Home Back-up Discharge Destination: Own Home Potential Barriers to Return to Prior Living (Use comments to be specific): Caregiver limitations;Capacity for self care;Mobility challenge;Cognitive challenge;Architectural/environmental barrier(s);Potential need for skills/non- skilled services;Potential need for 24 hour care;Insurance limitations Clinical Barriers : Clinical needs exceed caregiver capacity;Instability Barriers: 2 person assist w/ transfers, cognitive deficits DME Recommendations: HB w/ regular mattress, drop arm bsc, transfer board, tilt in space wc, sit tostand lift Services Recommended at Discharge: Outpatient Therapy 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 Medications: Current Facility-Administered Medications: acetaminophen (TYLENOL) tablet 500 mg, 500 mg, Per Tube, Q6H PRN, Nghia Pryor MD, 500 mg at 12/07/22 1353 baclofen (LIORESAL) tablet 5 mg, 5 mg, Oral, Nightly, Yamileth Frias MD, 5 mg at 12/11/22 213 bethanechol (URECHOLINE) tablet 25 mg, 25 mg, Oral, 3 times per day, Yamileth Frias MD, 25 mg at 12/12/22 09 bisacodyl (DULCOLAX) suppository 10 mg, 10 mg, Rectal, Daily PRN, Yamileth Frias MD, 10 mg at 12/10/22 1255 cefdinir (OMNICEF) capsule 300 mg, 300 mg, Oral, 2 times per day, Nghia Pryor MD, 300 mg at 12/12/22 09 cholecalciferol (VITAMIN D3) tablet 2,000 Units, 2,000 Units, Per Tube, Once a day, Nghia Pryor MD, 2,000 Units at 12/12/22 09 cyclobenzaprine (FLEXERIL) tablet 5 mg, 5 mg, Oral, 3 times per day, Loy Dawson MD, 5 mg at 12/12/22 09 fluconazole (DIFLUCAN) tablet 200 mg, 200 mg, Oral, Once a day, Yamileth Frias MD, 200 mg at 12/12/22901 gabapentin (NEURONTIN) capsule 300 mg, 300 mg, Oral, 3 times per day, Loy Dawson MD, 300 mg at 12/12/22901 guaiFENesin (ROBITUSSIN) 100 MG/5ML liquid 10 mL, 10 mL, Enteral, BID PRN, Nghia Pryor MD hydrocortisone (ANUSOL-HC) 2.5 % rectal cream, , Rectal, 2 times per day, Loy Dawson MD, Given at 12/10/222228 hydrOXYzine (ATARAX) tablet 25 mg, 25 mg, Oral, Q6H PRN, Yamileth Frias MD, 25 mg at 12/11/222134 lidocaine (LIDOCARE) 4 % patch 1 patch, 1 patch, Transdermal, Once a day, Loy Dawson MD, 1 patch at 12/12/22903 loratadine (CLARITIN) tablet 10 mg, 10 mg, Enteral, Once a day, Nghia Pryor MD, 10 mg at 12/12/22 09 metoprolol tartrate (LOPRESSOR) tablet 25 mg, 25 mg, Enteral, 2 times per day, Nghia Pryor MD, 25 mg at 12/12/22 09 muscle rub (ICY HOT) 10-15 % cream, , Topical, 3 times per day, Yamileth Frias MD, Given at 12/11/22 213 ondansetron ODT (ZOFRAN-ODT) disintegrating tablet 4 mg, 4 mg, Per Tube, Q6H PRN, Marlee Bradley MD, 4 mg at 12/12/22 0512 oxyCODONE (ROXICODONE) immediate release tablet 5 mg, 5 mg, Enteral, Q4H PRN, Marlee Bradley MD, 5mg at 12/12/22 0913 oxyCODONE (ROXICODONE) immediate release tablet 5 mg, 5 mg, Oral, Daily at 0600, Yamileth Frias MD, 5 mg at 12/12/22 0507 pantoprazole-sodium bicarbonate 2mg/ml oral liquid 40 mg, 40 mg, Per Tube, Daily bef breakfast, Marlee Bradley MD, 40 mg at 12/11/22 0626 polyethylene glycol (MIRALAX) packet 17 g, 17 g, Per Tube, BID PRN, Yamileth Frias MD senna-docusate (SENOKOT-S) 8.6-50 MG tablet 2 tablet, 2 tablet, Enteral, Daily PRN, Yamileth Frias MD simethicone (MYLICON) chewable tablet 80 mg, 80 mg, Per Tube, BID PRN, Marlee Bradley MD, 80 mg at11/28/222051 tamsulosin (FLOMAX) 24 hr capsule 0.4 mg, 0.4 mg, Enteral, After Breakfast, Nghia Pryor MD, 0.4 mg at 12/12/22902 triamcinolone (KENALOG) 0.1 % ointment, , Apply externally, BID PRN, Nghia Pryor MD, Given at 11/20/222014 verapamil (CALAN) tablet 40 mg, 40 mg, Enteral, Q8H SENDY, Nghia Pryor MD, 40 mg at 12/12/22 0507 Warfarin Per Policy, , Does not apply, Daily, Nghia Pryor MD warfarin tablet 3.5 mg, 3.5 mg, Oral, Daily, Nghia Pryor MD Pharmacy: Latest Pharmacy IDT Documentation Value Time User Medications Reviewed: Considerations for Discharge 11/21/2022 10:03 AM Sandra Land PharmD Documented cosiderations for discharge: Pain; Special Meds/Others 11/28/2022 9:19 AM Manuel ChenD Current pain medications: Medications Related to Management of Pain acetaminophen (TYLENOL) tablet 500 mg, 500 mg, Per Tube, Q6H PRN, Nghia Pryor MD, 500 mg at 11/20/22 0610 oxyCODONE (ROXICODONE) immediate release tablet 5 mg, 5 mg, Enteral, Q4H PRN, Marlee Bradley MD, 5 mg at 11/21/22 0115 Lidocaine 4% patch 1 patch daily Gabapentin 300 mg PO TID Baclofen 5 mg tab at bedtime Cyclobenzaprine 5 mg tab TID Muscle rub (ICY HOT) 12/12/2022 9:11 AM Myra Aguiar, ManuelD Considerations to be discussed: warfarin 11/21/2022 10:03 AM Sandra Land, ManuelD Inpatient Morphine Milligram Equivalents Per Day 12/05 - 12/13 Values displayed are in units of MME/Day Order Start / End Date 12/05 12/06 12/07 12/08 12/09 12/10 Yesterday Today Tomorrow Daily Totals Unknown (at least 7.5) of Unknown (at least 7.5) Unknown (at least 7.5) of Unknown (atleast 7.5) Unknown (at least 7.5) of Unknown (at least 7.5) Unknown (at least 7.5) of Unknown (at least 7.5) Unknown (at least 7.5) of Unknown (at least 7.5) Unknown (at least 7.5) of Unknown (at least 7.5) 7.5 of Unknown (at least 7.5) Unknown (at least 7.5) of Unknown (at least 7.5) 0 of Unknown (at least 7.5) oxyCODONE (ROXICODONE) immediate release tablet 5 mg 11/18 - No end date Unknown of Unknown Unknown of Unknown Unknown of Unknown Unknown of Unknown Unknown of Unknown Unknown of Unknown 0 of Unknown Unknown of Unknown 0 of Unknown oxyCODONE (ROXICODONE) immediate release tablet 5 mg 12/02 - 12/16 7.5 of 7.5 7.5 of 7.5 7.5 of 7.5 7.5 of 7.5 7.5 of 7.5 7.5 of 7.5 7.5 of 7.5 7.5 of 7.5 0 of 7.5 Calculation Errors Order Type Date Details oxyCODONE (ROXICODONE) immediate release tablet 5 mg Ordered Dose -- No morphine equivalence factorfound for OXYCODONE HCL 5 MG PO TABS [[id number]] and route Enteral [125] Administered Dose 12/05/22 No morphine equivalence factor found for OXYCODONE HCL 5 MG PO TABS [[id number]] and route Enteral [125] 12/06/22 No morphine equivalence factor found for OXYCODONE HCL 5 MG PO TABS [[id number]] and route Enteral [125] 12/07/22 No morphine equivalence factor found for OXYCODONE HCL 5 MG PO TABS [[id number]] and route Enteral [125] 12/08/22 No morphine equivalence factor found for OXYCODONE HCL 5 MG PO TABS [[id number]] and route Enteral [125] 12/09/22 No morphine equivalence factor found for OXYCODONE HCL 5 MG PO TABS [[id number]] and route Enteral [125] 12/10/22 No morphine equivalence factor found for OXYCODONE HCL 5 MG PO TABS [[id number]] and route Enteral [125] 12/12/22 No morphine equivalence factor found for OXYCODONE HCL 5 MG PO TABS [[id number]] and route Enteral [125] Nursing Team Conference: Bladder Continent: (Inabilty to void) Bowel Continent: Continent Bowel Devices: Adult brief Bowel Interventions: Bowel program Pain: Patient denies pain Respiratory O2 Delivery System: None Skin Interventions: None Wound Rx: None Cognitive Orientation: Person;Place;Time;Date Cognitive Deficits Observed: Delayed responses Quality of Sleep: Restful Approximate Hours Slept: 7 Medical Issues: HTN,Urine obstruction Educational Topics: Family teching on straight cath Patient-Family barriers to learning: None Is patient on dialysis?: No PT Weekly Progress Note PT Weekly Progress Note by Tia Felix PT at 12/11/2022 5:09 PM Author: Tia Felix PT Service: Therapy Author Type: Physical Therapist Filed: 12/11/2022 5:12 PM Date of Service: 12/11/2022 Legal Coordinator: Tia Felix PT (Physical Therapist) PT Weekly Progress Note Patient Name: Consuelo Darby Patient Birthdate: 1980 PT CURRENT FUNCTIONAL STATUS: PT Current Functional Status: PT Current Functional Status: Ms. Darby's functional status as follows: PRECAUTIONS: Helmet for crainectomy protection on when up/moving around. BED MOBILITY: Supine to sit = max A for trunk and L hemibody; cues for sonya-compensatory technique, sequencing, Lhemi-body attention Sit to supine = max A for trunk and L UE/LE; cues for sonya-technique, hooking L with R LE, sequencing, and safety Rolling L = min A to for trunk, inititaion/completion of task Rolling R = max A for L sonya-body, cues for sonya-compensatory techniques, L attention, safety TRANSFERS Transfer board = mod/max A for force production, balance, and LLE positioning/stability; L neglect noted; level surfaces only, practiced to R and L; sig improvement noted with fluency and safety going towards R Sit-stand with R sonya-aide = mod A for balance and L knee block, slight L lean; cues for safety, hand placement, and technique Stand-pivot without device = max A for balance and L knee block/positioning towards R, max/dep x1 toward L; cues for safety, technique, sequencing, and L attention; practiced to R and L; significantly improved sequencing and stability going towards R Car transfer = not assessed this date Mechanical lift = Myra-flex stand lift for bed to/from w/c and for toileting at times (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 nursing staff) GAIT: up to 40' with R sonya-aide and max A x1 for balance and LLE management; 2nd person for w/c follow for safety; helmet, L sling for glenohumeral support, L francisco wrap for DF; notable initiation/trace movement of L hip flexion on swing at times; improved with cues and practice, though not consistent; assist to fully advance L swing and total assist to stabilize L knee from buckling required; pt progressed to being able to advance cane appropriately without physical assist - only required verbal cues Deviations include: sonya-paretic gait pattern, decreased wt shift R with lean L, L LE assist/stabilization as noted, L neglect, flexed posture, R head rotation Not safe to attempt 50, 150' Compliant surface: not safe to attempt Retrieval of an object from the ground: not safe to attempt STAIRS: Not safe to attempt 1, 4, 12 steps at this time. WHEELCHAIR MOBILITY Loaner manual w/c issued via [employer] - lightweight, contoured back, half lap tray, pressure relieving cushion, adjustable and removable arm/leg rests; propels 160' with mod/max A for steering, L neglect; repeated cues for safety, L awareness/visual scanning, and technique; increased time and effort required; utilizes R UE/LE to propel OUTCOME MEASURES: ABS - 15 PASS = 13/36 per prior notes 10MWT = not able to attempt at this time Factors in Goal Achievement: Facilitating Factors: Patient understanding and knowledge, Patient compliance, Patient motivation, Improved safety awareness and Support of family or caregiver Barriers: Decreased safety awareness, Motor control deficits, Strength limitations, Pain, Balance deficits and Diminished endurance Date Last Assessed: 12/11/2022 DME Recommendations Common Therapy DME: Hospital Bed, Transfer Board, Manual Lift, Manual Wheelchair (contacted [employer] regarding specialty w/c for home use) Hospital Bed - Type: Semi-Electric Hospital bed Manual Lift: [id number] Lift (Myra Flex stand lift) Specialty Mattres - Type: Low Air Loss, Other (comment) (significant immobility with left side, high risk of pressure injuries, requires assist for position changes.) Transfer Board - Type: 24 in without cutout CARE Score Fields: 6: Independent. [place] provides no assistance with tasks. A device may or may not have been used. 5: Set-up or clean-up assistance. [place] sets up or cleans up, but does not assist with tasks. [place] may have assisted prior to or following the activity. 4: Supervision or touching assistance. [place] provides verbal cues or touching/steadying or contactguard assistance. Assistance may be provided throughout the activity or intermittently. 3: Partial/moderate assistance. [place] does less than half the effort. [place] lifts, holds, or supports trunk or limbs, but provides less than half the effort. 2: Substantial/maximal assistance. [place] does more than half the effort. [place] lifts or holds trunk or limbs, and provides more than half the effort. 1: Dependent. [place] does all of the effort, or the assistance of two or more helpers is required for the patient to complete the activity. -: Inconsistent or incomplete documentation Activity not attempted values: 7: Patient refused 9: Not applicable - Not attempted and the patient did not perform this activity prior to the current illness, exacerbation, or injury. 10: Not attempted due to environmental limitations (e.g., lack of equipment, weather constraints) 88: Not attempted due to medical condition or safety concerns Mcfp Goals: Goal Status on Admission Current Status Car Transfer LTG: Partial/moderate assistance (Patient will complete car transfer with moderate assist to be able to transport in a personal vehicle.) Car Transfer - CARE Score: 88 (11/18/22 1006 : Roxanne Goldberg, PT) Car Transfer - CARE Score: 88 (12/11/221707) Walk 10 Feet - CARE Score: 88 (11/18/22 1006 : Roxanne Goldberg PT) Walk 10 Feet - CARE Score: 1 (12/11/221707) Walk 50 Feet with Two Turns - CARE Score: 88 (11/18/22 1006 : Roxanne Goldberg PT) Walk 50 Feet with Two Turns - CARE Score: 88 (12/11/221707) Walk 150 Feet - CARE Score: 88 (11/18/22 1006 : Roxanne Goldberg PT) Walk 150 Feet - CARE Score: 88(12/11/221707) Walking 10 Feet on Uneven Surfaces - CARE Score: 88 (11/18/22 1006 : Roxanne Goldberg PT) Walking 10 Feet on Uneven Surfaces - CARE Score: 88 (12/11/221707) 1 Step (Curb) - CARE Score: 88 (11/18/22 100 : Roxanne Goldberg PT) 1 Step (Curb) - CARE Score: 88(12/11/221707) 4 Steps - CARE Score: 88 (11/18/22 1006 : Roxanne Goldberg PT) 4 Steps - CARE Score: 88 (12/11/221707) 12 Steps - CARE Score: 88 (11/18/22 1006 : Roxanne Goldberg PT) 12 Steps - CARE Score: 88 () Picking Up Object - CARE Score: 88 (11/18/22 1006 : Roxanne Goldberg PT) Picking Up Object - CARE Score: 88 (12/11/221707) Wheel 50 Feet with Two Turns LTG: Supervision or touching assistance (Patient will be able to wheel50 ft including navigating the environment with touching assistance.) Wheel 50 Feet with Two Turns - CARE Score: 88 (11/18/22 100 : Roxanne Goldberg PT) Wheel 50 Feet with Two Turns - CARE Score: 2 (12/11/221707) Wheel 150 Feet - CARE Score: 88 (11/18/22 1006 : Roxanne Goldberg, PT) Wheel 150 Feet - CARE Score: 2 (12/11/22 1708) Additional Goals & Status: N/A PT Other Mcfp Goals Flowsheet Row Most Recent Value Other PT Ranch Helper Goals Other Goals - Ranch Helper Mcfp 1, Ranch Helper 2 Filed on: 11/18/2022 105 Other Mcfp Goal 1 Patient will complete transfers with moderate assist of one person. Filed on: 11/18/2022 105 Other Mcfp Goal 1 Status Established Filed on: 11/18/2022 105 Other Ranch Helper Goal 2 Patient will complete bed mobility including rolling and supine<> sit transitions with minimal assistance. Filed on: 11/18/2022 105 Other Mcfp Goal 2 Status Established Filed on: 11/18/20221056 Expected Achievement Date 12/15/22 Filed on: 11/18/2022 105 PT Short Term Goal 1: Focus: Other Details: Patient will be able to tolerate being out of bed and seated in her wheelchair for increased engagement within therapy session. Expected Achievement Date: 11/25/2022 Goal Status: Achieved PT Short Term Goal 2: Focus: Other (Bed mobility) Level of Assistance to Meet Short Term Goal: Physical assistance 75% or more Details: Patient will complete rolling in bed with maximal assist of one. Expected Achievement Date: 12/04/2022 Status: Achieved PT Short Term Goal 3: Level of Assistance to Meet Short Term Goal: Total assistance Details: Patient will be able to complete sit <> supine transitions with two person moderate assist. Expected Achievement Date: 12/11/2022 Status: Achieved PT Short Term Goal 4: Details: Pt w/c to mat with stand pivot and max assist of one. Expected Achievement Date: 12/11/2022 Goal Status: Achieved Duration Expiration Date: 12/17/2022 TIA FELIX, PT, DPT 12/11/2022 OT Weekly Progress Note OT Weekly Progress Note by Bridgett Evangelista, OT at 12/11/2022 4:23 PM Author: Bridgett Evangelista OT Service: -- Author Type: Occupational Therapist Filed: 12/11/2022 4:28 PM Date of Service: 12/11/2022 Legal Coordinator: Bridgett Evangelista, OT (Occupational Therapist) Occupational Therapy Weekly Progress Note Patient Name: Consuelo Darby Patient Birthdate: 1980 OT Current Functional Status: Ms. Darby's current status is as follows (per documentation and observation): EATING: with supervision ORAL HYGIENE: with supervision TOILETING: with dependence, requires assist of 2 for safety with standing and requires assistance for hygiene SHOWER/BATHING: with dependence with shower sitting in tilt in space roll in shower chair. Ms. Darby was able to assist with washing face, upper chest, part of abdomen. She required assistance with remaining bathing tasks while sitting shower chair. She required assistance of 2 for drying glenis areaand buttocks due to requiring one person to stand Ms. Darby with maximal assistance and another to dry. UPPER BODY DRESSING: with maximal assistance, Ms. Darby able to assist with donning right UE into shirt and requires assistance for all other aspects of UB dressing LOWER BODY DRESSING: with dependence for unthreading/threading clothing over feet, assist of one person to stand Ms. Darby while another person pulls clothing over hips. FOOTWEAR: with minimal assistance while seating in w/c, Assistance needed for donning left shoe. ROLL LEFT/RIGHT: with minimal assistance rolling to left using bed rail and maximal assistance rolling to right using bed rail SIT TO LYING: with dependence, using assist of 2 for safety LYING TO SITTING: with maximal assistance of one with increased time SIT TO STAND: with maximal assistance with support for left knee and hip while standing BED TO CHAIR TRANSFER: with maximal assistance using sliding board TOILET TRANSFER: with moderate to maximal assist of one to transfer to right onto bariatric commode, 2 person assit for safety transferring to commode to w/c on left side. Ms. Darby continues to present with no active movement in left UE. Increased tone in left shoulder.Right neglect with right gaze preference, however, Ms. Darby able to look towards left with cues. Ms. Darby would benefit from continued OT services to work on maximizing functional independence. Facilitating Factors in Goal Achievement: Patient understanding and knowledge, Patient compliance, Patient motivation, Use of compensatory strategies, Support of family or caregiver, Support of significant other, Improved cognition, Improved functional mobility and Improved balance Barriers to Goal Achievement: Pain, ROM limitations, Strength limitations, Balance deficits, Diminished endurance, Motor control deficits, Decreased safety awareness, Cognitive deficits and Visual deficits Date Last Assessed: 12/11/2022 Patient needs assistance with the following activities: Activities of daily living, Going out in the community, Use of bathroom equipment, Vision, Rolling, Use of patient user experience manager, Positioning, Sittingbalance and Reaching Will patient require a prosthetic or orthotic device upon discharge: No DME Recommendations Common Therapy DME: Commodes Commode - Type: Drop Arm Commode (patient is unable to access restroom; currently she is using a lift to transfer on and off of [facility] [place] [place], but she may progress to lateral transfers with sliding board in the future.) CARE Score Fields: 6: Independent. [place] provides no assistance with tasks. A device may or may not have been used. 5: Set-up or clean-up assistance. [place] sets up or cleans up, but does not assist with tasks. [place] may have assisted prior to or following the activity. 4: Supervision or touching assistance. [place] provides verbal cues or touching/steadying or contactguard assistance. Assistance may be provided throughout the activity or intermittently. 3: Partial/moderate assistance. [place] does less than half the effort. [place] lifts, holds, or supports trunk or limbs, but provides less than half the effort. 2: Substantial/maximal assistance. [place] does more than half the effort. [place] lifts or holds trunk or limbs, and provides more than half the effort. 1: Dependent. [place] does all of the effort, or the assistance of two or more helpers is required for the patient to complete the activity. -: Inconsistent or incomplete documentation Activity not attempted values: 7: Patient refused 9: Not applicable - Not attempted and the patient did not perform this activity prior to the current illness, exacerbation, or injury. 10: Not attempted due to environmental limitations (e.g., lack of equipment, weather constraints) 88: Not attempted due to medical condition or safety concerns Ranch Helper Goals: Goal Status on Admission Current Status Eating LTG: Supervision or touching assistance Eating - CARE Score: 88 (11/18/22 1252 : Roland Eubanks OT) Eating - CARE Score: 4 (12/11/22 1623) Oral Hygiene LTG: Supervision or touching assistance Oral Hygiene - CARE Score: 2 (11/18/22 1252 : Roland Avendano OT) Oral Hygiene - CARE Score: 4 (12/11/221622) Toileting Hygiene LTG: Partial/moderate assistance Toileting Hygiene - CARE Score: 1 (11/18/22 1252: Roland Avendano OT) Toileting Hygiene - CARE Score: 1 (12/11/221622) Shower/Bathe Self LTG: Partial/moderate assistance Shower/Bathe Self - CARE Score: 1 (11/18/22 1252: Roland Avendano OT) Shower/Bathe Self - CARE Score: 1 (12/11/221622) Upper Body Dressing LTG: Partial/moderate assistance Upper Body Dressing - CARE Score: 1 (11/18/22 1252 : Roland Avendano OT) Upper Body Dressing - CARE Score: 2 (12/11/221622) Lower Body Dressing LTG: Partial/moderate assistance Lower Body Dressing - CARE Score: 1 (11/18/22 1252 : Roland Avendano OT) Lower Body Dressing - CARE Score: 1 (12/11/221622) Putting On/Taking Off Footwear LTG: Partial/moderate assistance Putting On/Taking Off Footwear - CARE Score: 1 (11/18/22 1252 : Roland Avendano OT) Putting On/Taking Off Footwear - CARE Score: 3 (12/11/221622) Roll Left and Right - CARE Score: 1 (11/18/22 1252 : Roland Avendano OT) Roll Left and Right - CARE Score: 2 (12/11/221622) Sit to Lying - CARE Score: 88 (11/18/22 1252 : Roland Avendano OT) Sit to Lying - CARE Score:1 (12/11/221622) Lying to Sitting on Side of Bed - CARE Score: 88 (11/18/22 1252 : Roland Avendano OT) Lying to Sitting on Side of Bed - CARE Score: 2 (12/11/221622) Sit to Stand - CARE Score: 88 (11/18/22 1252 : Roland Avendano OT) Sit to Stand - CARE Score:2 (12/11/221622) Chair/Axj-bg-Ununh Transfer LTG: Partial/moderate assistance Chair/Vhw-gk-Cexrq Transfer - CARE Score: 1 (11/18/22 1252 : Roland Avendano, OT) Chair/Zef-rj-Xqhsa Transfer - CARE Score: 2 (12/11/221622) Toilet Transfer LTG: Partial/moderate assistance Toilet Transfer - CARE Score: 88 (11/18/22 1252 : Roland Avendano, OT) Toilet Transfer - CARE Score: 1 (12/11/221622) Additional Goals & Status: N/A OT Short Term Goal 1: Focus: Toileting Hygiene Level of Assistance to Meet Short Term Goal: Physical assistance 50%-74% Expected Achievement Date: 12/18/2022 Goal Status: Not Achieved OT Short Term Goal 2: Focus: Shower/Bathe Level of Assistance to Meet Short Term Goal: Physical assistance 50%-74% Expected Achievement Date: 12/18/2022 Goal Status: Not Achieved OT Short Term Goal 3: Focus: Upper Body Dressing Level of Assistance to Meet Short Term Goal: Physical assistance 50%-74% Expected Achievement Date: 12/11/2022 Goal Status: Achieved OT Short Term Goal 4: Focus: Lower Body Dressing Level of Assistance to Meet Short Term Goal: Physical assistance 50%-74% Expected Achievement Date: 12/18/2022 Goal Status: Not Achieved OT Short Term Goal 5: Focus: Chair/Bed Transfer Level of Assistance to Meet Short Term Goal: Physical assistance 50%-74% Expected Achievement Date: 12/11/2022 Goal Status: Achieved OT Short Term Goal 6: Focus: Toilet Transfer Level of Assistance to Meet Short Term Goal: Physical assistance 50%-74% Expected Achievement Date: 12/18/2022 Goal Status: Not Achieved OT Short Term Goal 7: Focus: Chair/Bed Transfer Level of Assistance to Meet Short Term Goal: Physical assistance 25%-49% Details: Consistently Expected Achievement Date: 12/18/2022 Goal Status: Established Duration Expiration Date: 12/16/2022 BRIDGETT EVANGELISTA OT 12/11/2022 [employer] Weekly Progress Note [employer] Weekly Progress Note by ST Mehdi at 12/11/2022 3:58 PM Author: ST Mehdi Service: Therapy Author Type: Speech and Language Pathologist Filed: 12/11/2022 4:13 PM Date of Service: 12/11/2022 Legal Coordinator: ST Mehdi (Speech and Language Pathologist) Speech Language Pathologist Weekly Progress Note Patient Name: Consuelo Darby Patient Birthdate: 1980 [employer] Current Functional Status: Ms. Darby is a 42 year-old female referred to speech therapy for evaluation and treatment followingrecent hospitalization with a diagnosis of stroke. Past medical history is significant for abdominal pain right upper quadrant, hemiplegic migraine, GERD, HTN. Prior to referral for a rehabilitation a dmission, patient did not require assistance for household ambulation, community level ambulation or self-care activities. 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 Ms. Darby's current functional status is as follows: SWALLOWING: A follow-up MBS was completed on 12/06/22 with results as follows: Significant improvement noted from prior swallow study performed on 11/27/22. Swallow initiation was timely with no pharyngeal residue observed. No aspiration observed with any consistency presented.Transient laryngeal penetration was observed x1 with thin liquid; no additional pharyngeal penetration observed. Patient presented with slowed mastication of the solid texture (cracker) due to left facial weakness. She was able to clear the oral cavity with only minimal residue remaining. TREATMENT RECOMMENDATIONS-- 1. Continue SOFT & BITE SIZED texture diet (IDDSI 6) 2. Begin THIN LIQUIDS (IDDSI 0) 3. Medications given whole with puree or with water as tolerated; may also be given through the PEG. 4. Upright for all PO intake 5. Slow rate during meals; Small bites/sips 6. Assist with set-up of tray. Monitor with meals and assist as needed. 7. Oral care following meals Patient's diet was upgraded to REGULAR texture with THIN LIQUIDS (IDDSI 7/0) on 12/08/22. COMPREHENSION: SUPERVISION. Patient is able to comprehend information regarding basic needs over 90% of the time. Increased difficulty noted with complex or abstract information. Patient presents with left visual impairment which interferes with reading comprehension and all visual tasks. EXPRESSION: Improved to MODIFIED INDEPENDENT. Patient is able to express information regarding complex or abstract topics with only mild difficulty. Speech is 100% intelligible. SOCIAL INTERACTION: MODIFIED INDEPENDENT. Patient interacts appropriately most of the time. She presents with flat affect and mildly reduced initiation. She presents with left side visual impairment which affects social interactions. PROBLEM SOLVING: MINIMAL ASSISTANCE. Patient solves routine problems at least 75% of the time. The Cognitive Linguistic Quick Test was completed. See results below. MEMORY: Improved to MODIFIED INDEPENDENT. Patient is able to recognize and remember people, routines, and requests with only mild difficulty. PROGRESS 11/20/22: Evaluation was completed on 11/18/22. All goals remain appropriate at this time dueto limited number of sessions thus far. PROGRESS 11/27/22: Ms. Darby has made significant improvement this week in therapy. A MBS was completed and recommendation made to begin a PO diet of Pureed food items with Mildly Thick Liquids. Patient's speech intelligibility has improved so that she is fully intelligible. Improvement noted in functional problem-solving skills for routine daily tasks. She is able to remember familiar people and events at least 75% of the time. Overall endurance and participation in therapy tasks is improved. PROGRESS 12/04/22: Ms. Darby is seen for speech therapy 45 minutes daily for swallowing, communication and cognitive interventions to improve patient's swallowing safety and functional communication and cognitive abilities. She continues to make good progress in therapy. She is managing a pureed texture diet with mildly thick/nectar liquids. The SM Water Protocol was initiated on 11/30 and patient is tolerating with no difficulty reported. She participated in Neuromuscular Electrical Stimulation (PENS) 3x per week. A follow-up MBS is planned for this week. Patient's participation in therapy tasks is improved. Patient presents with left visual impairment, which limits her ability to perform written activities and to complete a formal cognitive assessment. The Cognitive Linguistic Quick Test is in progress. Patient participated in discussion of stroke risk factors and prevention. PROGRESS 12/11/22: Ms. Darby is seen for speech therapy 45 minutes daily for swallowing, communication and cognitive interventions to improve patient's swallowing safety and functional communication and cognitive abilities. She continues to make good progress towards her speech therapy goals. Patient's diet was upgraded this week to REGULAR texture with THIN LIQUIDS. The Cognitive Linguistic QuickTest was completed with results revealing severe impairments in attention, executive functions, andvisuospatial skills. Memory and language skills scored WNL. Patient's left visual impairment impedes her performance on tasks targeting attention and executive skills. Improvement noted this week in v erbal expression and functional memory skills for recall of people, daily events, and new information. RECOMMENDATIONS: Ms. Darby will benefit from continued speech therapy services to address the following plan of care: compensatory strategy training; cognitive and communicative retraining to increased safety and independence upon discharge; and patient/family training and education. Discharge is planned for 12/14/22. Consuelo Darby: [X ]is able to state 2 risk factors without VCs prior to discharge [ ]requires cues to recall 2 stroke risk factors [ ] Is unable to state stroke risk factors due to communication or cognitive deficits; Education not yet completed. Facilitating Factors in Goal Achievement: Patient compliance, Patient understanding and knowledge, Progress to date, Improvement in swallow function, Improvement in cognitive skills, Improvement in communication skills and Support of other(s) Barriers to Goal Achievement: Communication deficits and Other (comment) (cognition; dysphagia) Date Last Assessed: 12/11/2022 [employer] Goals: Goal Status on Evaluation Current Progress Towards Goal Level of Assistance to Meet Auditory Comprehension: Standby (less than 10%) Auditory Comprehension Details: Demonstrate auditory comprehension of complex questions, directions, and conversation to meet needs, complete tasks and interact socially with others within functionalliving environments Auditory Comprehension Expected Achievement Date: 12/02/22 Minimal assistance Achieved at Supervision Level of Assistance to Meet Memory: Standby (less than 10%) Memory Details: Demonstrate functional memory skills for recall of information relating to people, routines, overall health, and safety within functional living environments Memory Expected Achievement Date: 12/02/22 Minimal assistance Achieved at modified independent Level of Assistance to Meet Motor Speech: Min assist (10-24%) Motor Speech Details: Demonstrate functional speech intelligibility in multiple environments through self monitoring and implementation of newly learned strategies and exercises Motor Speech Expected Achievement Date: 12/02/22 Moderate assistance Achieved at modified independent Level of Assistance to Meet Swallowing: Standby (less than 10%) Swallowing Details: Safely consume a regular diet with all liquids with no overt signs or symptoms of aspiration or post swallow distress Swallowing Expected Achievement Date: 12/02/22 NPO liquids and solids Regular texture and thin liquids Additional Goal Status: N/A [employer] Short Term Goals: Auditory Comprehension: Level of Assistance to Meet Auditory Comprehension: Standby (less than 10%) Details: Answer complex yes/no questions with 90% acc Expected Achievement Date: 12/04/2022 Goal Status: Achieved Memory: Level of Assistance to Meet Memory: Min assist (10-24%) Details: Recall 3-4 events from PT and OT sessions Expected Achievement Date: 12/04/2022 Goal Status: Achieved Additional Cognition: Level of Assistance to Meet Additional Cognition: Min assist (10-24%) Details: Complete visual attention tasks with 80% acc Expected Achievement Date: 12/18/2022 Goal Status: Not Achieved Motor Speech: Level of Assistance to Meet Motor Speech: Mod assist (25-49%) Details: Increase maximum phonation time to 10 seconds Expected Achievement Date: 12/18/2022 Goal Status: Partially Achieved Swallowing: Level of Assistance to Meet Swallowing: Standby (less than 10%) Details: Improve OHAT score to zero, initiate SMWP as appropriate Expected Achievement Date: 12/04/2022 Goal Status: Achieved Other STG 1: Focus: Motor Speech Level of Assistance to Meet Other STG 1: Independent Details: State three speech intelligibility strategies Expected Achievement Date: 11/27/2022 Goal Status: Achieved Other STG 2: Focus: Motor Speech Level of Assistance to Meet Other STG 2: Min assist (10-24%) Details: Demonstrate use of strategies at the phrase level Expected Achievement Date: 11/27/2022 Goal Status: Achieved Other STG 3: Focus: Swallowing Level of Assistance to Meet Other STG 3: Standby (less than 10%) Details: Tolerate PO trials ice chips, thickened liquids with <10% overt clinical signs/symptomsaspiration or post-swallow distress Expected Achievement Date: 11/27/2022 Goal Status: Achieved Other STG 4: Focus: Swallowing Details: Safely manage current diet (IDDSI 4/2) and trials of upgraded solids as appropriate with no clinical signs of dysphagia. Expected Achievement Date: 12/11/2022 Goal Status: Achieved Other STG 5: Focus: Swallowing Details: Perform swallowing exercises following a model with minimal assistance. Expected Achievement Date: 12/11/2022 Goal Status: Achieved Duration Expiration Date: 12/15/[address] 12/11/2022 Respiratory Team Conference: Nutrition Team Conference: Dietary Orders (From admission, onward) Start Ordered 12/08/22 1156 Adult Diet Regular; 7 Regular (Regular Texture); 0 Thin (All Liquids) Diet effective now End/Expires: Until Specified References: IDDSI Website Question Answer Comment Diet Type: Regular Diet Texture: 7 Regular (Regular Texture) Liquid Consistency: 0 Thin (All Liquids) Place order in third green party system. Done 12/08/22 1155 11/29/22 1700 Nutritional supplement Magic Cup; Oral 3 times daily with meals Comments: Send chocolate Thrive TID End/Expires: Until Specified Question Answer Comment Select Supplement: Magic Cup Administration Route: Oral Place order in third green party system. Done 11/29/22 1250 Height: 5' 4 (162.6 cm) Admit Weight: 198 lb (89.8 kg) Current Weight: 192 lb (87.1 kg) Body mass index is 32.96 kg/m??. Calorie Count: Plan of Care - Nutrition Care Plans 1 Author: Roland Mas RD Service: -- Author Type: Registered Dietitian Filed: 12/08/2022 12:19 PM Date of Service: 12/08/2022 12:19 PM Status: Signed Legal Coordinator: Roland Mas RD (Registered Dietitian) Problem: Swallowing Difficulty Description: Impaired or difficult movement of food and liquid within the oral cavity to the stomach. Related to: Motor causes, e.g., neurological or muscular disorders, such as cerebral palsy, stroke,multiple sclerosis, scleroderma; or prematurity, altered suck, swallow, breathe patterns, encephalopathy As evidenced by: modified consistency diet. Goal: Improve Nutritional Status Outcome: Completed Flowsheets (Taken 12/08/2022 1218) Meals and Snacks: (regular diet) General healthful diet Enteral and Parenteral Nutrition: (discontinued) -- Medical Food Supplement Therapy: (chocolate Magic Cup TID) Commercial beverage/Oral nutrition supplement Wound: Wound Rx: None Cosigned by Yamileth Frias MD at 12/12/2022 1:39 PM CDT Associated attestation - Yamileth Frias MD - 12/12/2022 2:39 PM EDT A team conference was held on 12/12/2022 and included members of the multidisciplinary team identified in the attendance section of this note. Issues related to Ms. Darby's status include; Patient Active Problem List Diagnosis Cerebrovascular accident Hypertension Trochanteric bursitis of left hip Ms. Parkers progress toward rehabilitation goals, impediments to attaining these goals, and associated revisions to the treatment plans and goals were discussed by the team. Details of this multidisciplinary process are included below. Issues of particular significance at this time regarding Ms. Darby's progress towards rehabilitation goals and treatment plan include: Discussed about functional gains , discharge planning ,DME , follow up therapies and current medical condition during team conference . As discussed during this team conference, I concur with the decisions set forth by the members of the multidisciplinary team. Ms. Darby continues to require frequent physician visits and 24 hours perday acute rehabilitation nursing care in order to meet medical needs and progress toward the achievement of the rehabilitation goals. YAMILETH FRIAS MD 12/12/2022 1:39 PM CDT * Plan of Care - Troy Allen RN - 12/12/2022 10:32 AM CDT Problem: Infection Goal: Absence of infection and prevention of transmission during hospitalization Outcome: Progressing Problem: Knowledge Deficit Goal: Patient and/or family demonstrate readiness to learn Outcome: Progressing Goal: Patient and/or family verbalizes understanding of education, and/or performs desired skill Outcome: Progressing Problem: Discharge Planning Goal: Discharge to home or other facility with appropriate resources Outcome: Progressing Goal: supervisor engraving will develop a plan to decrease their burden and enhance comfort in role Outcome: Progressing Problem: Delirium Goal: Prevent and Manage Delirium Outcome: Progressing Problem: Fall Prevention: Neglect/Hemiparesis Bundle Goal: Patient will be free from Fall Injury Outcome: Progressing Problem: Fall Safety: [place] Precautions Goal: Free from fall injury Outcome: Progressing Problem: Fall Huddle Goal: Free from Fall Injury Outcome: Progressing Problem: Knowledge Deficit Goal: Patient/Family demonstrated knowledge and consent signed for surgery intervention Outcome: Progressing Goal: Patient/Family demonstrated decreased anxiety Outcome: Progressing Problem: Wound Infection Goal: Sterile techinque maintained Outcome: Progressing Goal: No allergic reaction occurred Outcome: Progressing Problem: Fluid Imbalance Goal: Patient fluid balance maintained Outcome: Progressing Problem: Injury Goal: Patient wound closed with all sharps, sponges, instruments and foreign bodies accounted for Outcome: Progressing Goal: Patient/Personnel protected for unnecessary radiation exposure Outcome: Progressing Goal: Patient free of injury related to surgical positioning Outcome: Progressing Goal: Safety precautions taken accordingly to the [employer] standards Outcome: Progressing Goal: Skin integrity maintained Outcome: Progressing Goal: Equipment meets performance and safety criteria Outcome: Progressing Problem: Pain Goal: Patient's Pain/Discomfort is Manageable Outcome: Progressing * PT Treatment Note - Tia Felix, PT - 12/12/2022 10:31 AM CDT PT Treatment Patient Name: Consuelo Darby Patient Birthdate: 1980 Patient Subjective Report - Pt reports plan for discharge and starting DI on Sunday. States will perform transfers and transport to/from DI. Notes she feels more comfortable with this plan. Motivated and pleasant. Agreeable to PT. Pain Assessment Pain Context: Therapy Assessment Prior to Treatment (12/12/22 103) Pain Assessment: NRS 0-10 (12/12/22 103) Pain Score: 2 - Mild Pain (12/12/22 103) Pain Severity - NRS (Calculated): Mild (12/12/22 103) Pain Location: Hip (12/12/22 103) Pain Orientation: Left (12/12/22 103) Pain Descriptors: Aching (12/12/22 103) Pain Onset: Ongoing (12/12/22 103) Pain Frequency: Intermittent (12/12/22 103) Aggravating Factors: Positioning (12/12/22 103) Functional Impact: None (12/12/221030) Pre-therapy pain intervention required: Patient expressed pain is tolerable/able to proceed (12/12/221030) BED MOBILITY: Sit to supine = mod/max A for L LE and trunk; cues for sonya-compensatory techniques, hooking L withR LE, L attention, positioning TRANSFER TRAINING: Transfer board = mod A for force production, balance, and LLE positioning/stability; L inattention noted, but improved with cues; level surfaces only, practiced to R and L x2 each direction; actuallyimproved performance and fluency noted today going towards L Sit-stand with R sonya-aide = mod A for balance and L knee block, slight L lean; cues for safety, hand placement, and technique; repeated practice Stand-pivot without device = max A for balance and L knee block/positioning going towards R; practice x1 towards R Stand-pivot with R sonya-aide = max A for balance and LLE, max cues for sequencing and technique; nosignificant improvement noted with device; practiced towards R and L x1 each direction GAIT: 30' x1 and 40' x1 with R sonya-aide and max A x1 for balance and LLE management; 2nd person for w/c follow for safety; helmet for craniectomy protection, L sling for glenohumeral support, L francisco wrap for DF; notable initiation/trace movement of L hip flexion on swing at times; improved with cues and practice, though not consistent; assist to fully advance L swing and total assist to stabilize L knee from buckling required Deviations include: sonya-paretic gait pattern, decreased wt shift R with lean L, L LE assist/stabilization as noted, L neglect, flexed posture, R head rotation PT Treatment Outcomes:: Safety device reapplied, Qualitative gains in function, Goals met for this session and Cues needed for safety PT Summary:: Cont PT POC to maximize neuromuscular recovery, decrease fall risk, and promote level of safety and independence with functional tasks prior to discharge home. PT Summary Plan of Care: Continue with current plan of care Pain Evaluation and Follow-up Pain Reassessment: 0, No pain (12/12/22 111) Nursing notified of patient's pain assessment: Not indicated - pain score 2 or less (12/12/22 1115) Therapy Minutes Individual Concurrent Co-Treat Individual (PT) Time In : 1031 Time Out: 1117 Total Time with Patient (Min): 46 min TIA FELIX, PT, DPT 12/12/2022 * OT Treatment Note - Roland Avendano, OT - 12/12/2022 8:12 AM CDT Occupational Therapy Treatment Patient Name: Consuelo Darby Patient Birthdate: 1980 Patient Subjective Report - I need to be cathed again around 11. Pain Assessment Pain Context: Therapy Assessment Prior to Treatment (12/12/22813) Pain Assessment: NRS 0-10 (12/12/22813) Pain Score: 2 - Mild Pain (12/12/22813) Pain Severity - NRS (Calculated): Mild (12/12/22813) Pain Location: Abdomen (12/12/22813) Pain Interventions Education Provided: Patient (12/12/22942) Non-Pharmacologic Pain Interventions: Distractions, Exercise/Activity, Position/Reposition, Shower (12/12/22942) ADL Training: ADL Training Narrative: EATING: ORAL HYGIENE: set up while seated in w/c TOILETING: BATHING: max assist; pt used long handled sponge; she needed assist for thoroughness with washing feet/legs, buttocks and underarms. She was seated on rolling shower chair throughout shower. Aquaguard dressing used to cover former GI site, but dressing did get wet--nurse informed and changed dressing after shower. Helmet removed for hair washing. Pt did not stand during shower. UB DRESSING: max assist; pt assisted with threading R arm into shirt; assist needed for donning shirt and bra; pt was educated on sonya techniques (dressing L arm first) LB DRESSING: dependent--two person assist when standing to complete LB dressing PUTTING ON/TAKING OFF FOOTWEAR: max assist; pt assisted with doffing R sock and shoe; assist neededfor all other aspects ROLL LEFT AND RIGHT: SIT TO LYING: LYING TO SITTING: SIT TO STAND: max assist without use of stand lift; two person assist with use of stand lift BED TO CHAIR TRANSFER: TOILET TRANSFER: Shower transfers: two person assist for safety; used sliding board to transfer onto shower chair; used Myra lift to transfer off of rolling shower chair. Helmet was applied prior to each transfer (removed during shower to allow for washing hair). Discussed DME needs--pt reports that she would like a standard drop arm commode at home instead of a bariatric drop arm commode. Pt reports that her may be getting her a rolling shower chair and may build a small ramp into shower. OT Therapeutic Activity: Therapeutic Exercise: Pt used 4# weight with R UE, 20 reps each of bicep curls, punches, shoulder press, and horizontal ab/adduction. She participated in L UE PROM and stretching, tolerating about 90 degrees shoulder flexion and abduction and about 60 degrees external rotation. No AROM noted in L UE. Treatment, Outcomes and Plan: OT Narrative:: Ms Darby tolerated session well. She participated in shower this morning. She continues to need two people for safety when transferring off of shower chair (b/c of wet environment). Continued intensive OT recommended. OT Treatment Outcomes:: Safety device reapplied, Patient tolerated treatment well, Patient is progressing toward STG(s), Goals met for this session, Improved ADL performance and Improved ability to perform functional transfers OT Summary Plan of Care: Continue with current plan of care Pain Evaluation and Follow-up Pain Reassessment: 0, No pain (12/12/22942) Nursing notified of patient's pain assessment: Not indicated - pain score 2 or less (12/12/22942) Therapy Minutes Individual Concurrent Co-Treat Individual (OT) Time In : 811 Time Out: 944 Total Time with Patient (Min): 93 min ROLAND AVENDANO OT 12/12/2022 * Non-treatment Therapy Note - Roberto Lee OT - 12/12/2022 7:25 AM CDT Prior to team conference, the Primary Therapist Bridgett Evangelista, ERIN and I have communicated regarding current patient status, progress towards goals, and modifications to plan of care, as appropriate. ROBERTO LEE OT * Plan of Care - Bradley Spain - 12/11/2022 10:35 PM CDT Problem: Fall Safety: [place] Precautions Goal: Free from fall injury Outcome: Progressing Flowsheets (Taken 12/04/2022 0518 by Tia Hernandez RN) Free from fall injury: Perform fall risk assessment and identifiers in place (as applicable) Frequent rounding/monitoring Lighting appropriate Put call light within reach and teach how to call for assistance, respond to call light immediately Use of bed/chair alarm Bed low, locked 2 side rails Offer frequent toileting Toilet magnet in place ([facility] Only) Encourage patient to wear glasses and hearing aids and to use walking aids when ambulating, non skid socks Safe mobility and activity (this could include chair safety) Assess for environmental or other risks Fall/safety education for patient/family/SO MAR review Problem: Pain Goal: Patient's Pain/Discomfort is Manageable Outcome: Progressing Flowsheets (Taken 12/09/2022 0225 by Hyun Barber, RN) Patient's Pain/Discomfort is Manageable: Include patient/family/caregiver in decisions related to pain management Offer non-pharmocological pain management interventions Provide Emotional/Spiritual Support Administer medications as ordered Reassess patient's response and tolerance to discomfort * PT Weekly Progress Note - Tia Felix, PT - 12/11/2022 5:09 PM CDT PT Weekly Progress Note Patient Name: Consuelo Darby Patient Birthdate: 1980 PT CURRENT FUNCTIONAL STATUS: PT Current Functional Status: PT Current Functional Status: Ms. Darby's functional status as follows: PRECAUTIONS: Helmet for crainectomy protection on when up/moving around. BED MOBILITY: Supine to sit = max A for trunk and L hemibody; cues for sonya-compensatory technique, sequencing, Lhemi-body attention Sit to supine = max A for trunk and L UE/LE; cues for sonya-technique, hooking L with R LE, sequencing, and safety Rolling L = min A to for trunk, inititaion/completion of task Rolling R = max A for L sonya-body, cues for sonya-compensatory techniques, L attention, safety TRANSFERS Transfer board = mod/max A for force production, balance, and LLE positioning/stability; L neglect noted; level surfaces only, practiced to R and L; sig improvement noted with fluency and safety going towards R Sit-stand with R sonya-aide = mod A for balance and L knee block, slight L lean; cues for safety, hand placement, and technique Stand-pivot without device = max A for balance and L knee block/positioning towards R, max/dep x1 toward L; cues for safety, technique, sequencing, and L attention; practiced to R and L; significantly improved sequencing and stability going towards R Car transfer = not assessed this date Mechanical lift = Myra-flex stand lift for bed to/from w/c and for toileting at 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 (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 staff) GAIT: up to 40' with R sonya-aide and max A x1 for balance and LLE management; 2nd person for w/c follow for safety; helmet, L sling for glenohumeral support, L francisco wrap for DF; notable initiation/trace movement of L hip flexion on swing at times; improved with cues and practice, though not consistent; assist to fully advance L swing and total assist to stabilize L knee from buckling required; pt progressed to being able to advance cane appropriately without physical assist - only required verbal cues Deviations include: sonya-paretic gait pattern, decreased wt shift R with lean L, L LE assist/stabilization as noted, L neglect, flexed posture, R head rotation Not safe to attempt 50, 150' Compliant surface: not safe to attempt Retrieval of an object from the ground: not safe to attempt STAIRS: Not safe to attempt 1, 4, 12 steps at this time. WHEELCHAIR MOBILITY Loaner manual w/c issued via [employer] - lightweight, contoured back, half lap tray, pressure relieving cushion, adjustable and removable arm/leg rests; propels 160' with mod/max A for steering, L neglect; repeated cues for safety, L awareness/visual scanning, and technique; increased time and effort required; utilizes R UE/LE to propel OUTCOME MEASURES: ABS - 15 PASS = 13/36 per prior notes 10MWT = not able to attempt at this time Factors in Goal Achievement: Facilitating Factors: Patient understanding and knowledge, Patient compliance, Patient motivation, Improved safety awareness and Support of family or caregiver Barriers: Decreased safety awareness, Motor control deficits, Strength limitations, Pain, Balance deficits and Diminished endurance Date Last Assessed: 12/11/2022 DME Recommendations Common Therapy DME: Hospital Bed, Transfer Board, Manual Lift, Manual Wheelchair (contacted [facility] regarding specialty w/c for home use) Hospital Bed - Type: Semi-Electric Hospital bed Manual Lift: [id number] Lift (Myra Flex stand lift) Specialty Mattres - Type: Low Air Loss, Other (comment) (significant immobility with left side, high risk of pressure injuries, requires assist for position changes.) Transfer Board - Type: 24 in without cutout CARE Score Fields: 6: Independent. [place] provides no assistance with tasks. A device may or may not have been used. 5: Set-up or clean-up assistance. [place] sets up or cleans up, but does not assist with tasks. [place] may have assisted prior to or following the activity. 4: Supervision or touching assistance. [place] provides verbal cues or touching/steadying or contactguard assistance. Assistance may be provided throughout the activity or intermittently. 3: Partial/moderate assistance. [place] does less than half the effort. [place] lifts, holds, or supports trunk or limbs, but provides less than half the effort. 2: Substantial/maximal assistance. [place] does more than half the effort. [place] lifts or holds trunk or limbs, and provides more than half the effort. 1: Dependent. [place] does all of the effort, or the assistance of two or more helpers is required for the patient to complete the activity. -: Inconsistent or incomplete documentation Activity not attempted values: 7: Patient refused 9: Not applicable - Not attempted and the patient did not perform this activity prior to the current illness, exacerbation, or injury. 10: Not attempted due to environmental limitations (e.g., lack of equipment, weather constraints) 88: Not attempted due to medical condition or safety concerns Ranch Helper Goals: Goal Status on Admission Current Status Car Transfer LTG: Partial/moderate assistance (Patient will complete car transfer with moderate assist to be able to transport in a personal vehicle.) Car Transfer - CARE Score: 88 (11/18/22 1006 : Roxanne Goldberg, PT) Car Transfer - CARE Score: 88 (12/11/221707) Walk 10 Feet - CARE Score: 88 (11/18/22 1006 : Roxanne Goldberg, PT) Walk 10 Feet - CARE Score: 1 (12/11/221707) Walk 50 Feet with Two Turns - CARE Score: 88 (11/18/22 1006 : Roxanne Goldberg, PT) Walk 50 Feet with Two Turns - CARE Score: 88 (12/11/221707) Walk 150 Feet - CARE Score: 88 (11/18/22 1006 : Roxanne Goldberg, PT) Walk 150 Feet - CARE Score: 88(12/11/221707) Walking 10 Feet on Uneven Surfaces - CARE Score: 88 (11/18/22 1006 : Roxanne Goldberg PT) Walking 10 Feet on Uneven Surfaces - CARE Score: 88 (12/11/221707) 1 Step (Curb) - CARE Score: 88 (11/18/22 1006 : Roxanne Goldberg PT) 1 Step (Curb) - CARE Score: 88(12/11/221707) 4 Steps - CARE Score: 88 (11/18/22 1006 : Roxanne Goldberg PT) 4 Steps - CARE Score: 88 (12/11/221707) 12 Steps - CARE Score: 88 (11/18/22 1006 : Roxanne Goldberg PT) 12 Steps - CARE Score: 88 () Picking Up Object - CARE Score: 88 (11/18/22 1006 : Roxanne Goldberg PT) Picking Up Object - CARE Score: 88 (12/11/221707) Wheel 50 Feet with Two Turns LTG: Supervision or touching assistance (Patient will be able to wheel50 ft including navigating the environment with touching assistance.) Wheel 50 Feet with Two Turns - CARE Score: 88 (11/18/22 1006 : Roxanne Goldberg PT) Wheel 50 Feet with Two Turns - CARE Score: 2 (12/11/221707) Wheel 150 Feet - CARE Score: 88 (11/18/22 1006 : Roxanne Goldberg PT) Wheel 150 Feet - CARE Score: 2 (12/11/221707) Additional Goals & Status: N/A PT Other Mcfp Goals Flowsheet Row Most Recent Value Other PT Mcfp Goals Other Goals - Mcfp Ranch Helper 1, Ranch Hel[place] 2 Filed on: 11/18/2022 1057 Other [place] Goal 1 Patient will complete transfers with moderate assist of one person. Filed on: 11/18/2022 1057 Other [place] Goal 1 Status Established Filed on: 11/18/2022 105 Other [place] Goal 2 Patient will complete bed mobility including rolling and supine<> sit transitions with minimal assistance. Filed on: 11/18/2022 1057 Other Mcfp Goal 2 Status Established Filed on: 11/18/2022 1057 Expected Achievement Date 12/15/22 Filed on: 11/18/2022 1057 PT Short Term Goal 1: Focus: Other Details: Patient will be able to tolerate being out of bed and seated in her wheelchair for increased engagement within therapy session. Expected Achievement Date: 11/25/2022 Goal Status: Achieved PT Short Term Goal 2: Focus: Other (Bed mobility) Level of Assistance to Meet Short Term Goal: Physical assistance 75% or more Details: Patient will complete rolling in bed with maximal assist of one. Expected Achievement Date: 12/04/2022 Status: Achieved PT Short Term Goal 3: Level of Assistance to Meet Short Term Goal: Total assistance Details: Patient will be able to complete sit <> supine transitions with two person moderate assist. Expected Achievement Date: 12/11/2022 Status: Achieved PT Short Term Goal 4: Details: Pt w/c to mat with stand pivot and max assist of one. Expected Achievement Date: 12/11/2022 Goal Status: Achieved Duration Expiration Date: 12/17/2022 TIA FELIX, PT, DPT 12/11/2022 * OT Weekly Progress Note - Bridgett Evangelista, OT - 12/11/2022 4:23 PM CDT Occupational Therapy Weekly Progress Note Patient Name: Consuelo Darby Patient Birthdate: 1980 OT Current Functional Status: Ms. Darby's current status is as follows (per documentation and observation): EATING: with supervision ORAL HYGIENE: with supervision TOILETING: with dependence, requires assist of 2 for safety with standing and requires assistance for hygiene SHOWER/BATHING: with dependence with shower sitting in tilt in space roll in shower chair. Ms. Darby was able to assist with washing face, upper chest, part of abdomen. She required assistance with remaining bathing tasks while sitting shower chair. She required assistance of 2 for drying glenis areaand buttocks due to requiring one person to stand Ms. Darby with maximal assistance and another to dry. UPPER BODY DRESSING: with maximal assistance, Ms. Darby able to assist with donning right UE into shirt and requires assistance for all other aspects of UB dressing LOWER BODY DRESSING: with dependence for unthreading/threading clothing over feet, assist of one person to stand Ms. Darby while another person pulls clothing over hips. FOOTWEAR: with minimal assistance while seating in w/c, Assistance needed for donning left shoe. ROLL LEFT/RIGHT: with minimal assistance rolling to left using bed rail and maximal assistance rolling to right using bed rail SIT TO LYING: with dependence, using assist of 2 for safety LYING TO SITTING: with maximal assistance of one with increased time SIT TO STAND: with maximal assistance with support for left knee and hip while standing BED TO CHAIR TRANSFER: with maximal assistance using sliding board TOILET TRANSFER: with moderate to maximal assist of one to transfer to right onto bariatric commode, 2 person assit for safety transferring to commode to w/c on left side. Ms. Darby continues to present with no active movement in left UE. Increased tone in left shoulder.Right neglect with right gaze preference, however, Ms. Darby able to look towards left with cues. Ms. Darby would benefit from continued OT services to work on maximizing functional independence. Facilitating Factors in Goal Achievement: Patient understanding and knowledge, Patient compliance, Patient motivation, Use of compensatory strategies, Support of family or caregiver, Support of significant other, Improved cognition, Improved functional mobility and Improved balance Barriers to Goal Achievement: Pain, ROM limitations, Strength limitations, Balance deficits, Diminished endurance, Motor control deficits, Decreased safety awareness, Cognitive deficits and Visual deficits Date Last Assessed: 12/11/2022 Patient needs assistance with the following activities: Activities of daily living, Going out in the community, Use of bathroom equipment, Vision, Rolling, Use of patient user experience manager, Positioning, Sittingbalance and Reaching Will patient require a prosthetic or orthotic device upon discharge: No DME Recommendations Common Therapy DME: Commodes Commode - Type: Drop Arm Commode (patient is unable to access restroom; currently she is using a lift to transfer on and off of BSC, but she may progress to lateral transfers with sliding board in the future.) CARE Score Fields: 6: Independent. [place] provides no assistance with tasks. A device may or may not have been used. 5: Set-up or clean-up assistance. [place] sets up or cleans up, but does not assist with tasks. [place] may have assisted prior to or following the activity. 4: Supervision or touching assistance. [place] provides verbal cues or touching/steadying or contactguard assistance. Assistance may be provided throughout the activity or intermittently. 3: Partial/moderate assistance. [place] does less than half the effort. [place] lifts, holds, or supports trunk or limbs, but provides less than half the effort. 2: Substantial/maximal assistance. [place] does more than half the effort. [place] lifts or holds trunk or limbs, and provides more than half the effort. 1: Dependent. [place] does all of the effort, or the assistance of two or more helpers is required for the patient to complete the activity. -: Inconsistent or incomplete documentation Activity not attempted values: 7: Patient refused 9: Not applicable - Not attempted and the patient did not perform this activity prior to the current illness, exacerbation, or injury. 10: Not attempted due to environmental limitations (e.g., lack of equipment, weather constraints) 88: Not attempted due to medical condition or safety concerns Mcfp Goals: Goal Status on Admission Current Status Eating LTG: Supervision or touching assistance Eating - CARE Score: 88 (11/18/22 1252 : Roland Eubanks OT) Eating - CARE Score: 4 (12/11/221622) Oral Hygiene LTG: Supervision or touching assistance Oral Hygiene - CARE Score: 2 (11/18/22 1252 : Roland Avendano OT) Oral Hygiene - CARE Score: 4 (12/11/221622) Toileting Hygiene LTG: Partial/moderate assistance Toileting Hygiene - CARE Score: 1 (11/18/22 1252: Roland Avendano OT) Toileting Hygiene - CARE Score: 1 (12/11/221622) Shower/Bathe Self LTG: Partial/moderate assistance Shower/Bathe Self - CARE Score: 1 (11/18/22 1252: Roland Avendano OT) Shower/Bathe Self - CARE Score: 1 (12/11/221622) Upper Body Dressing LTG: Partial/moderate assistance Upper Body Dressing - CARE Score: 1 (11/18/22 1252 : Roland Avendano OT) Upper Body Dressing - CARE Score: 2 (12/11/221622) Lower Body Dressing LTG: Partial/moderate assistance Lower Body Dressing - CARE Score: 1 (11/18/22 1252 : Roland Avendano OT) Lower Body Dressing - CARE Score: 1 (12/11/221622) Putting On/Taking Off Footwear LTG: Partial/moderate assistance Putting On/Taking Off Footwear - CARE Score: 1 (11/18/22 1252 : Roland Avendano OT) Putting On/Taking Off Footwear - CARE Score: 3 (12/11/221622) Roll Left and Right - CARE Score: 1 (11/18/22 1252 : Roland Avendano OT) Roll Left and Right - CARE Score: 2 (12/11/221622) Sit to Lying - CARE Score: 88 (11/18/22 1252 : Roland Avendano OT) Sit to Lying - CARE Score:1 (12/11/221622) Lying to Sitting on Side of Bed - CARE Score: 88 (11/18/22 1252 : Roland Avendano OT) Lying to Sitting on Side of Bed - CARE Score: 2 (12/11/221622) Sit to Stand - CARE Score: 88 (11/18/22 1252 : Roland Avendano OT) Sit to Stand - CARE Score:2 (12/11/221622) Chair/Ldy-er-Hirdg Transfer LTG: Partial/moderate assistance Chair/Lmu-ja-Yknjj Transfer - CARE Score: 1 (11/18/22 1252 : Roland Avendano OT) Chair/Elb-lt-Gcpfp Transfer - CARE Score: 2 (12/11/221622) Toilet Transfer LTG: Partial/moderate assistance Toilet Transfer - CARE Score: 88 (11/18/22 1252 : Roland Avendano OT) Toilet Transfer - CARE Score: 1 (12/11/221622) Additional Goals & Status: N/A OT Short Term Goal 1: Focus: Toileting Hygiene Level of Assistance to Meet Short Term Goal: Physical assistance 50%-74% Expected Achievement Date: 12/18/2022 Goal Status: Not Achieved OT Short Term Goal 2: Focus: Shower/Bathe Level of Assistance to Meet Short Term Goal: Physical assistance 50%-74% Expected Achievement Date: 12/18/2022 Goal Status: Not Achieved OT Short Term Goal 3: Focus: Upper Body Dressing Level of Assistance to Meet Short Term Goal: Physical assistance 50%-74% Expected Achievement Date: 12/11/2022 Goal Status: Achieved OT Short Term Goal 4: Focus: Lower Body Dressing Level of Assistance to Meet Short Term Goal: Physical assistance 50%-74% Expected Achievement Date: 12/18/2022 Goal Status: Not Achieved OT Short Term Goal 5: Focus: Chair/Bed Transfer Level of Assistance to Meet Short Term Goal: Physical assistance 50%-74% Expected Achievement Date: 12/11/2022 Goal Status: Achieved OT Short Term Goal 6: Focus: Toilet Transfer Level of Assistance to Meet Short Term Goal: Physical assistance 50%-74% Expected Achievement Date: 12/18/2022 Goal Status: Not Achieved OT Short Term Goal 7: Focus: Chair/Bed Transfer Level of Assistance to Meet Short Term Goal: Physical assistance 25%-49% Details: Consistently Expected Achievement Date: 12/18/2022 Goal Status: Established Duration Expiration Date: 12/16/2022 BRIDGETT EVANGELISTA OT 12/11/2022 * [employer] Weekly Progress Note - [facility] - 12/11/2022 3:58 PM CDT Speech Language Pathologist Weekly Progress Note Patient Name: Consuelo Darby Patient Birthdate: 1980 [employer] Current Functional Status: Ms. Darby is a 42 year-old female referred to speech therapy for evaluation and treatment followingrecent hospitalization with a diagnosis of stroke. Past medical history is significant for abdominal pain right upper quadrant, hemiplegic migraine, GERD, HTN. Prior to referral for a rehabilitation a dmission, patient did not require assistance for household ambulation, community level ambulation or self-care activities. 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 Ms. Darby's current functional status is as follows: SWALLOWING: A follow-up MBS was completed on 12/06/22 with results as follows: Significant improvement noted from prior swallow study performed on 11/27/22. Swallow initiation was timely with no pharyngeal residue observed. No aspiration observed with any consistency presented.Transient laryngeal penetration was observed x1 with thin liquid; no additional pharyngeal penetration observed. Patient presented with slowed mastication of the solid texture (cracker) due to left facial weakness. She was able to clear the oral cavity with only minimal residue remaining. TREATMENT RECOMMENDATIONS-- 1. Continue SOFT & BITE SIZED texture diet (IDDSI 6) 2. Begin THIN LIQUIDS (IDDSI 0) 3. Medications given whole with puree or with water as tolerated; may also be given through the PEG. 4. Upright for all PO intake 5. Slow rate during meals; Small bites/sips 6. Assist with set-up of tray. Monitor with meals and assist as needed. 7. Oral care following meals Patient's diet was upgraded to REGULAR texture with THIN LIQUIDS (IDDSI 7/0) on 12/08/22. COMPREHENSION: SUPERVISION. Patient is able to comprehend information regarding basic needs over 90% of the time. Increased difficulty noted with complex or abstract information. Patient presents with left visual impairment which interferes with reading comprehension and all visual tasks. EXPRESSION: Improved to MODIFIED INDEPENDENT. Patient is able to express information regarding complex or abstract topics with only mild difficulty. Speech is 100% intelligible. SOCIAL INTERACTION: MODIFIED INDEPENDENT. Patient interacts appropriately most of the time. She presents with flat affect and mildly reduced initiation. She presents with left side visual impairment which affects social interactions. PROBLEM SOLVING: MINIMAL ASSISTANCE. Patient solves routine problems at least 75% of the time. The Cognitive Linguistic Quick Test was completed. See results below. MEMORY: Improved to MODIFIED INDEPENDENT. Patient is able to recognize and remember people, routines, and requests with only mild difficulty. PROGRESS 11/20/22: Evaluation was completed on 11/18/22. All goals remain appropriate at this time dueto limited number of sessions thus far. PROGRESS 11/27/22: Ms. Darby has made significant improvement this week in therapy. A MBS was completed and recommendation made to begin a PO diet of Pureed food items with Mildly Thick Liquids. Patient's speech intelligibility has improved so that she is fully intelligible. Improvement noted in functional problem-solving skills for routine daily tasks. She is able to remember familiar people and events at least 75% of the time. Overall endurance and participation in therapy tasks is improved. PROGRESS 12/04/22: Ms. Darby is seen for speech therapy 45 minutes daily for swallowing, communication and cognitive interventions to improve patient's swallowing safety and functional communication and cognitive abilities. She continues to make good progress in therapy. She is managing a pureed texture diet with mildly thick/nectar liquids. The SM Water Protocol was initiated on 11/30 and patient is tolerating with no difficulty reported. She participated in Neuromuscular Electrical Stimulation (PENS) 3x per week. A follow-up MBS is planned for this week. Patient's participation in therapy tasks is improved. Patient presents with left visual impairment, which limits her ability to perform written activities and to complete a formal cognitive assessment. The Cognitive Linguistic Quick Test is in progress. Patient participated in discussion of stroke risk factors and prevention. PROGRESS 12/11/22: Ms. Darby is seen for speech therapy 45 minutes daily for swallowing, communication and cognitive interventions to improve patient's swallowing safety and functional communication and cognitive abilities. She continues to make good progress towards her speech therapy goals. Patient's diet was upgraded this week to REGULAR texture with THIN LIQUIDS. The Cognitive Linguistic QuickTest was completed with results revealing severe impairments in attention, executive functions, andvisuospatial skills. Memory and language skills scored WNL. Patient's left visual impairment impedes her performance on tasks targeting attention and executive skills. Improvement noted this week in v erbal expression and functional memory skills for recall of people, daily events, and new information. RECOMMENDATIONS: Ms. Darby will benefit from continued speech therapy services to address the following plan of care: compensatory strategy training; cognitive and communicative retraining to increased safety and independence upon discharge; and patient/family training and education. Discharge is planned for 12/14/22. Consuelo Darby: [X ]is able to state 2 risk factors without VCs prior to discharge [ ]requires cues to recall 2 stroke risk factors [ ] Is unable to state stroke risk factors due to communication or cognitive deficits; Education not yet completed. Facilitating Factors in Goal Achievement: Patient compliance, Patient understanding and knowledge, Progress to date, Improvement in swallow function, Improvement in cognitive skills, Improvement in communication skills and Support of other(s) Barriers to Goal Achievement: Communication deficits and Other (comment) (cognition; dysphagia) Date Last Assessed: 12/11/2022 [employer] Goals: Goal Status on Evaluation Current Progress Towards Goal Level of Assistance to Meet Auditory Comprehension: Standby (less than 10%) Auditory Comprehension Details: Demonstrate auditory comprehension of complex questions, directions, and conversation to meet needs, complete tasks and interact socially with others within functionalliving environments Auditory Comprehension Expected Achievement Date: 12/02/22 Minimal assistance Achieved at Supervision Level of Assistance to Meet Memory: Standby (less than 10%) Memory Details: Demonstrate functional memory skills for recall of information relating to people, routines, overall health, and safety within functional living environments Memory Expected Achievement Date: 12/02/22 Minimal assistance Achieved at modified independent Level of Assistance to Meet Motor Speech: Min assist (10-24%) Motor Speech Details: Demonstrate functional speech intelligibility in multiple environments through self monitoring and implementation of newly learned strategies and exercises Motor Speech Expected Achievement Date: 12/02/22 Moderate assistance Achieved at modified independent Level of Assistance to Meet Swallowing: Standby (less than 10%) Swallowing Details: Safely consume a regular diet with all liquids with no overt signs or symptoms of aspiration or post swallow distress Swallowing Expected Achievement Date: 12/02/22 NPO liquids and solids Regular texture and thin liquids Additional Goal Status: N/A [employer] Short Term Goals: Auditory Comprehension: Level of Assistance to Meet Auditory Comprehension: Standby (less than 10%) Details: Answer complex yes/no questions with 90% acc Expected Achievement Date: 12/04/2022 Goal Status: Achieved Memory: Level of Assistance to Meet Memory: Min assist (10-24%) Details: Recall 3-4 events from PT and OT sessions Expected Achievement Date: 12/04/2022 Goal Status: Achieved Additional Cognition: Level of Assistance to Meet Additional Cognition: Min assist (10-24%) Details: Complete visual attention tasks with 80% acc Expected Achievement Date: 12/18/2022 Goal Status: Not Achieved Motor Speech: Level of Assistance to Meet Motor Speech: Mod assist (25-49%) Details: Increase maximum phonation time to 10 seconds Expected Achievement Date: 12/18/2022 Goal Status: Partially Achieved Swallowing: Level of Assistance to Meet Swallowing: Standby (less than 10%) Details: Improve OHAT score to zero, initiate SMWP as appropriate Expected Achievement Date: 12/04/2022 Goal Status: Achieved Other STG 1: Focus: Motor Speech Level of Assistance to Meet Other STG 1: Independent Details: State three speech intelligibility strategies Expected Achievement Date: 11/27/2022 Goal Status: Achieved Other STG 2: Focus: Motor Speech Level of Assistance to Meet Other STG 2: Min assist (10-24%) Details: Demonstrate use of strategies at the phrase level Expected Achievement Date: 11/27/2022 Goal Status: Achieved Other STG 3: Focus: Swallowing Level of Assistance to Meet Other STG 3: Standby (less than 10%) Details: Tolerate PO trials ice chips, thickened liquids with <10% overt clinical signs/symptomsaspiration or post-swallow distress Expected Achievement Date: 11/27/2022 Goal Status: Achieved Other STG 4: Focus: Swallowing Details: Safely manage current diet (IDDSI 4/2) and trials of upgraded solids as appropriate with no clinical signs of dysphagia. Expected Achievement Date: 12/11/2022 Goal Status: Achieved Other STG 5: Focus: Swallowing Details: Perform swallowing exercises following a model with minimal assistance. Expected Achievement Date: 12/11/2022 Goal Status: Achieved Duration Expiration Date: 12/15/[address] 12/11/2022 * Non-treatment Therapy Note - Idalmis Kohler, PT - 12/11/2022 3:58 PM CDT Prior to team conference, the Primary Therapist Tia Felix, PT and I have communicated regarding current patient status, progress towards goals, and modifications to plan of care, as appropriate. IDALMIS KOHLER PT * PT Treatment Note - Tia Felix PT - 12/11/2022 2:01 PM CDT PT Treatment Patient Name: Consuelo Darby Patient Birthdate: 1980 Patient Subjective Report - Pt's and mother were present for caregiver training session. Appear supportive. Both agreeable to family training. Pt agreeable to PT as well. Pain Assessment Pain Context: Therapy Assessment Prior to Treatment (12/11/22 1401) Pain Assessment: None/denies pain (12/11/22 1401) PRECAUTIONS: Helmet for crainectomy protection OUTCOME MEASURES: ABS - 15 CAREGIVER TRAINING: Lengthy discussion on safety concerns, current functional status, L hemiparesis, L neglect, stroke recovery, balance concerns, fall risk, caregiver support, caregiver body mechanics and postioning, gait belt application, UE sling application, bed mobility, sliding board transfers, sitting balance, care and safety of hemiparetic extremities, bladder concerns/need for straight catheterization, w/c parts management and positioning, options for transfers (slide board vs stand lift vs stand-pivot), benefits of mechanical lifts, follow up PT options/risks/benefits, safety concerns with untrained caregivers, benefit of ongoing family training. Both and mother appeared very supportive. Training consisted of in depth and thorough verbal instruction and education, visual demonstration of tasks, and hands-on training. able to perform transfers with good success after practice and cues, though would benefit from continued training (óscar car transfer). Mother requires more training and required hands-on assist each attempt, though appears motivated to continue. EQUIPMENT: Practiced donning/doffing UE sling and gait belt x3; therapist, mother, BED MOBILITY: Supine to sit = max A for trunk and L hemibody; cues for sonya-compensatory technique, sequencing, Lhemi-body attention Sit to supine = max A for trunk and L UE/LE; cues for sonya-technique, hooking L with R LE, sequencing, and safety Rolling R = max A for L sonya-body, cues for sonya-compensatory techniques, L attention, safety *practiced x4 during training (once with therapist, 2x with , 1x with mother) WHEELCHAIR: Discussed parts and positioning for transfers; leg rest removal, half lap tray removal, brake management, arm rest swing back; and mother practiced negotiating these parts before each transfer TRANSFERS: Transfer board = mod/max A for force production, balance, and LLE positioning/stability; L neglect noted; level surfaces only *practiced 8 slide board transfers total (x1 to R/L with therapist, x2 to R/L with , x1 to R/L with mother); including board placement and postioning, L LE placement, postioning, block Car Transfer = discussed verbally only; reviewed multiple techniques, safety concerns, parameters for success (height of car, options for sliding board entry, etc), potential modifications BALANCE: Sitting EOB with UE support on bed rail; completed static sitting with cues for midline stability, upright posture, feet positioning, trunk support and cues as needed, safety; CGA/min A; mother and practiced PT Treatment Outcomes:: Patient and family education progressing as expected, Safety device reapplied and Goals met for this session PT Summary:: Caregiver training initiated with and mother. Continued training warranted andplanned for 12/13. Cont P TPOC to maximize neuromuscular recovery. PT Summary Plan of Care: Continue with current plan of care Pain Evaluation and Follow-up Pain Reassessment: 0, No pain (12/11/22 1500) Nursing notified of patient's pain assessment: Not indicated - pain score 2 or less (no c/o during session) (12/11/22 1500) Therapy Minutes Individual Concurrent Co-Treat Individual (PT) Time In : 1401 Time Out: 1532 Total Time with Patient (Min): 91 min TIA FELIX, PT, DPT 12/11/2022 * OT Treatment Note - Bridgett Evangelista OT - 12/11/2022 1:20 PM CDT Occupational Therapy Treatment Patient Name: Consuelo Darby Patient Birthdate: 1980 Patient Subjective Report - we will be getting a hospital bed. Pain Assessment Pain Context: Therapy Assessment During Treatment (12/11/22 1320) Pain Assessment: None/denies pain (12/11/22 1320) Pain Score: 0 - No pain (12/11/22 1320) Pain Severity - NRS (Calculated): No pain (12/11/22 1320) ADL Training: ADL Training Narrative: EATING: with ORAL HYGIENE: with TOILETING: with SHOWER/BATHING: with UPPER BODY DRESSING: with LOWER BODY DRESSING: with maximal assistance at bed level with Ms. Darby rolling side to side. FOOTWEAR: with Transfer Training: Transfer Narrative: ROLL LEFT/RIGHT: with minimal assistance rolling left using bed rail, maximal assist rolling right using bed rail. SIT TO LYING: with LYING TO SITTING: with maximal assistance sitting on right side of bed. SIT TO STAND: with BED TO CHAIR TRANSFER: with maximal assistance of one transferring to right using sliding board from bed to w/c. TOILET TRANSFER: with OT Therapeutic Activity: Endurance: Rest breaks as needed. Patient Education: Ms. Darby, her , Hi, and her mother, participated with family training this date. Family were educated in Ms. Darby's selfcare needs from bed level as well as how much help Ms. Darby is able to assist when sitting in w/c with support of 3 sides. Family observed transfer to right from bed to w/c using sliding board. Family verbalized understanding. Family discussed DME needs with therapist. reported they have walk in shower, however, opening is 27 in wide and has slight step over. Discussed options for adapting opening for safety. They will be unable to transfer Ms. Darby using sliding board to tub bench at this time due to environmental barriers to entr ance of shower. Recommended roll in shower with belt with small ramp to compensate for step into shower. verbalized understanding. Recommended use of drop arm commode but stated that Ms. Darby needed to determine if she would be able to tolerate regular size commode verses bariatric size due to left hip pain. Stated to family that Ms. Darby balance is improving however, she still has concerns with sitting balance and will need assistance for safety in bathroom/commode. Family verbalizedunderstanding. reported that therapy can provide information regarding exercises for left UE and he will share with sister who is a PT. Family would benefit from further training. Cognition: Cues for safety Treatment, Outcomes and Plan: OT Narrative:: Ms. Darby tolerated tx with rest breaks with activity. She would benefit from continued OT services to work on maximizing functional independence. OT Treatment Outcomes:: Safety device reapplied, Patient tolerated treatment well, Patient is progressing toward STG(s), Goals met for this session and Cues needed for safety OT Summary Plan of Care: Continue with current plan of care Pain Evaluation and Follow-up Response to Therapy Interventions: Improved activity tolerance (12/11/22 1400) Pain Reassessment: 0, No pain (12/11/22 1400) Nursing notified of patient's pain assessment: Not indicated - pain score 2 or less (12/11/22 1400) Therapy Minutes Individual Concurrent Co-Treat Individual (OT) Time In : 1320 Time Out: 1400 Total Time with Patient (Min): 40 min BRIDGETT EVANGELISTA, OT 12/11/2022 CHART CORRECTION: Type of Chart Edit: Correction Reason for Correction: Additional information added and Entered in error (corrected information andadded information in patient education section.) Name: Bridgett Garcia Evangelista, OTR/L Date: 12/11/2022 Time: 16:20 CDT * [employer] Treatment Note - [facility] - 12/11/2022 11:20 AM CDT Speech Language Pathologist Treatment Patient Name: Consuelo Darby Patient Birthdate: 1980 Patient Subjective Report - I had [place] food for my 's birthday. Pain Assessment Pain Context: Therapy Assessment Prior to Treatment (12/11/22 1120) Pain Assessment: None/denies pain (12/11/22 1120) Cognitive Communication: Visual strategies, Task persistence, Processing information of increased length or complexity, Semi-complex to complex attention, Regulation/impulse control, Short-term memory, Immediate memory, Organization, Planning and sequencing, Self monitoring, Speed of processing, Daryl bal organization and Insight Dysphagia Treatment: Swallow strategy training, Dysphagia diet training and Therapeutic trials Recommended diet: Pills Can Be Taken with Recommended Liquid Consistency, IDDSI 7 - Regular / Regular and IDDSI 0 - Thin Liquids / All Liquids (Softer food selections) Compensatory swallowing techniques: Small bites, Small sips, Eat slowly-control rate, Oral care post PO intake and Seated upright with all PO intake Level of supervision at meals recommended: Assistance with set-up and Distant supervision Patient/Caregiver Training: Completed with patient, Therapy goals and treatment plan, Communicationstrategies, Swallow strategies, Oral hygiene, Current diet and Dysphagia Is patient a candidate for SM Water Protocol? N/A - patient is on IDDSI 0 (thin liquids/all liquids) - has no liquid consistency restrictions Special Test and Outcome Measures: Cognitive Linguistic Quick Test (CLQT) ST Narrative:: 1. Patient was seen for therapy in her room, seated in tilt in space wheelchair; alert and cooperative with all tasks. 2. The Cognitive Linguistic Quick Test was completed during this session. Assessment had been initiated and continued during prior therapy sessions. Results follow: Attention: Severe Memory: WNL Executive Functions: Severe Language: WNL Visuospatial Skills: Severe Clock Drawing: WNL Overall Composite Severity Ratin.3/4.0 Moderate Patient was educated on results of assessment and main barriers at this time with patient verbalizing understanding. 3. Patient completed a trail making task to target left visual attention with maximal assistance required. 4. Patient was able to place a word in the correct location on a chart (right/left column accordingto number) by following written instructions with moderate assistance required. 5. Patient remained in her room with call light and phone left within reach. Chair alarm activated.Patient was assisted with setting up her lunch tray. ST Session Outcomes: Patient/family education progressing, Progressing toward STGs, Tolerated treatment well and Maximal cues during session ST Summary Plan of Care: Continue with current plan of care Pain Evaluation and Follow-up Pain Reassessment: 0, No pain (12/11/22 1205) Nursing notified of patient's pain assessment: Not indicated - pain score 2 or less (12/11/22 1205) Therapy Minutes Individual Concurrent Co-Treat Time In : 1120 Time Out: 1207 Breaks/Pauses (Min): 0 mins Total Time with Patient (Min): 47 min Missed Minutes : [address] 12/11/2022 * Plan of Care - Shruti Minaya RN - 12/11/2022 10:18 AM CDT Problem: Infection Goal: Absence of infection and prevention of transmission during hospitalization Flowsheets (Taken 12/02/2022 1118 by Tatianna Pan RN) Absence of infection and prevention of transmission during hospitalization: Assess and monitor for signs and symptoms of infection and vital signs Monitor lab/diagnostic results Administer medications as ordered Problem: Fall Prevention: Neglect/Hemiparesis Bundle Goal: Patient will be free from Fall Injury Flowsheets (Taken 11/20/2022 0143 by Archie Loja RN) Patient will be free from Fall Injury: Consult with therapy for appropriate transfer techniques Adequate lighting Use lift equipment Bed/Chair alarms Problem: Pain Goal: Patient's Pain/Discomfort is Manageable Flowsheets (Taken 12/09/2022 022 by Hyun Barber, AMBROSE) Patient's Pain/Discomfort is Manageable: Include patient/family/caregiver in decisions related to pain management Offer non-pharmocological pain management interventions Provide Emotional/Spiritual Support Administer medications as ordered Reassess patient's response and tolerance to discomfort * PT Treatment Note - Tia Felix, PT - 12/11/2022 9:00 AM CDT PT Treatment Patient Name: Consuelo Darby Patient Birthdate: 1980 Patient Subjective Report - My and mom are coming at 1pm for training. Also reports G-tube was removed and upgraded to regular diet. Agreeable to PT. Pleasant. Pain Assessment Pain Context: Therapy Assessment Prior to Treatment (12/11/22 0900) Pain Assessment: None/denies pain (12/11/22 0900) BED MOBILITY: Supine to sit = max A for trunk and L hemibody; cues for sonya-compensatory technique, sequencing, Lhemi-body attention Sit to supine = max A for trunk and L UE/LE; cues for sonya-technique, hooking L with R LE, sequencing, and safety Rolling L = min A/CGA for trunk, inititaion/completion of task Rolling R = max A for L sonya-body, cues for sonya-compensatory techniques, L attention, safety TRANSFERS: Stand-pivot without device = max A for balance and L knee block/positioning towards R, max/dep x1 toward L; cues for safety, technique, sequencing, and L attention; practiced to R and L; significantly improved sequencing and stability going towards R GAIT: 30' x2 with R sonya-aide and max A x1 for balance and LLE management; 2nd person for w/c follow for safety; helmet, L sling for glenohumeral support, L francisco wrap for DF; notable initiation/trace movement of L hip flexion on swing at times; improved with cues and practice, though not consistent; assist to fully advance L swing and total assist to stabilize L knee from buckling required; pt progressed to being able to advance cane appropriately without physical assist - only required verbal cues Deviations include: sonya-paretic gait pattern, decreased wt shift R with lean L, L LE assist/stabilization as noted, L neglect, flexed posture, R head rotation WHEELCHAIR MOBILITY 160' x1 with mod/max A for steering, L neglect; repeated cues for safety, L awareness/visual scanning, and technique; increased time and effort required; utilizes R UE/LE to propel; encouragement required due to fatigue PT Treatment Outcomes:: Qualitative gains in function, Safety device reapplied, Gait deviations reduced, Goals met for this session, Cues needed for safety and Improved ambulation performance PT Summary:: Cont PT POC to maximize neuromuscular recovery, decrease fall risk, and promote level of safety and independence with mobility. PT Summary Plan of Care: Continue with current plan of care Pain Evaluation and Follow-up Pain Reassessment: 0, No pain (12/11/22945) Nursing notified of patient's pain assessment: Not indicated - pain score 2 or less (12/11/22945) Therapy Minutes Individual Concurrent Co-Treat Individual (PT) Time In : 0900 Time Out: 0946 Total Time with Patient (Min): 46 min TIA FELIX, PT, DPT 12/11/2022 * Plan of Care - Hyun Barber RN - 12/11/2022 12:08 AM CDT Problem: Discharge Planning Goal: Discharge to home or other facility with appropriate resources Outcome: Progressing Flowsheets (Taken 12/02/2022 1945) Discharge to home or other facility with appropriate resources: Identify barriers to discharge with patient and caregiver Arrange for needed discharge resources and transportation as appropriate Identify discharge learning needs (meds, wound care, etc) Refer to Case Management Department for Coordinating discharge planning for if the patient needs post-hospital services based on physician order or complex needs related to functional status, cognitive ability or social support system Problem: Pain Goal: Patient's Pain/Discomfort is Manageable Outcome: Progressing Flowsheets (Taken 12/09/2022 0225) Patient's Pain/Discomfort is Manageable: Include patient/family/caregiver in decisions related to pain management Offer non-pharmocological pain management interventions Provide Emotional/Spiritual Support Administer medications as ordered Reassess patient's response and tolerance to discomfort * Plan of Care - Jovanni Riojas RN - 12/10/2022 12:14 PM CDT Problem: Infection Goal: Absence of infection and prevention of transmission during hospitalization Outcome: Progressing Problem: Knowledge Deficit Goal: Patient and/or family demonstrate readiness to learn Outcome: Progressing Goal: Patient and/or family verbalizes understanding of education, and/or performs desired skill Outcome: Progressing Problem: Discharge Planning Goal: Discharge to home or other facility with appropriate resources Outcome: Progressing Goal: supervisor engraving will develop a plan to decrease their burden and enhance comfort in role Outcome: Progressing Problem: Delirium Goal: Prevent and Manage Delirium Outcome: Progressing Problem: Fall Prevention: Neglect/Hemiparesis Bundle Goal: Patient will be free from Fall Injury Outcome: Progressing Problem: Fall Safety: [place] Precautions Goal: Free from fall injury Outcome: Progressing Problem: Fall Huddle Goal: Free from Fall Injury Outcome: Progressing Problem: Knowledge Deficit Goal: Patient/Family demonstrated knowledge and consent signed for surgery intervention Outcome: Progressing Goal: Patient/Family demonstrated decreased anxiety Outcome: Progressing Problem: Wound Infection Goal: Sterile techinque maintained Outcome: Progressing Goal: No allergic reaction occurred Outcome: Progressing Problem: Fluid Imbalance Goal: Patient fluid balance maintained Outcome: Progressing Problem: Injury Goal: Patient wound closed with all sharps, sponges, instruments and foreign bodies accounted for Outcome: Progressing Goal: Patient/Personnel protected for unnecessary radiation exposure Outcome: Progressing Goal: Patient free of injury related to surgical positioning Outcome: Progressing Goal: Safety precautions taken accordingly to the [employer] [facility] standards Outcome: Progressing Goal: Skin integrity maintained Outcome: Progressing Goal: Equipment meets performance and safety criteria Outcome: Progressing Problem: Pain Goal: Patient's Pain/Discomfort is Manageable Outcome: Progressing * Plan of Care - Hyun Barber RN - 12/10/2022 1:50 AM CDT Problem: Discharge Planning Goal: Discharge to home or other facility with appropriate resources Outcome: Progressing Flowsheets (Taken 12/02/2022 0329) Discharge to home or other facility with appropriate resources: Identify barriers to discharge with patient and caregiver Arrange for needed discharge resources and transportation as appropriate Identify discharge learning needs (meds, wound care, etc) Refer to Case Management Department for Coordinating discharge planning for if the patient needs post-hospital services based on physician order or complex needs related to functional status, cognitive ability or social support system Problem: Pain Goal: Patient's Pain/Discomfort is Manageable Outcome: Progressing Flowsheets (Taken 12/09/2022 0225) Patient's Pain/Discomfort is Manageable: Include patient/family/caregiver in decisions related to pain management Offer non-pharmocological pain management interventions Provide Emotional/Spiritual Support Administer medications as ordered Reassess patient's response and tolerance to discomfort Problem: Fall Safety: [place] Precautions Goal: Free from fall injury Outcome: Progressing Flowsheets (Taken 12/04/2022 2451 by Tia Hernandez RN) Free from fall injury: Perform fall risk assessment and identifiers in place (as applicable) Frequent rounding/monitoring Lighting appropriate Put call light within reach and teach how to call for assistance, respond to call light immediately Use of bed/chair alarm Bed low, locked 2 side rails Offer frequent toileting Toilet magnet in place (IR Only) Encourage patient to wear glasses and hearing aids and to use walking aids when ambulating, non skid socks Safe mobility and activity (this could include chair safety) Assess for environmental or other risks Fall/safety education for patient/family/SO MAR review * PT Treatment Note - Myra Obregon PT - 12/09/2022 1:00 PM CDT PT Treatment Patient Name: Consuelo Darby Patient Birthdate: 1980 Patient Subjective Report - Pt reports she is doing well and wants to try walking during session. Pain Assessment Pain Score: 2 - Mild Pain (12/09/22 1304) Pain Severity - NRS (Calculated): Mild (12/09/22 1304) Pain Location: Leg (12/09/22 1304) Pain Orientation: Left (12/09/22 130) Pre-therapy pain intervention required: Patient expressed pain is tolerable/able to proceed, Nursing medicated patient - see MAR (12/09/221303) Pain Interventions Education Provided: Patient (12/09/221303) Non-Pharmacologic Pain Interventions: Distractions, Position/Reposition, Exercise/Activity (12/09/22 130) BED MOBILITY: - supine>sit with MaxA to assist with BLEs and trunk TRANSFERS: - Bed>WC TotalA via Myra Flex Lift - Sit<>stand from wheelchair with Min-ModA for stability and lifting assist GAIT: - pt ambulates 5ft with sonya-aide, dependent assist (MaxAx1 person for balance and LLE management and close WC follow of second person). L sling for glenohumeral support, L francisco wrap for DF with shoeson; assist to advance L swing and total assist to stabilize L knee from buckling required; Deviations include sonya-paretic gait pattern, decreased wt shift R with lean L, L LE assist/stabilization asnoted, L neglect, flexed posture, R head rotation THERAPEUTIC ACTIVITIES: - sit<>stand x3reps with Min-ModA for balance and to maintain upright posture due to L lean - Standing weight shifting to L and R with assist to block L knee and sonya aide for RUE support, x1min PT Treatment Outcomes:: Safety device reapplied PT Summary:: Pt tolerated session fairly, limited in ambulation and standing due to R knee pain today. Pt motivated to try as much as she can even with knee pain. Pt continues to benefit from ongoingintensive therapy to maximize mobility. PT Summary Plan of Care: Continue with current plan of care Pain Evaluation and Follow-up Pain Reassessment: 4 (reassessed 1343, pain in R knee from ambulation during session) (12/09/22 130) Nursing notified of patient's pain assessment: Primary Nurse (12/09/221303) Therapy Minutes Individual Concurrent Co-Treat Individual (PT) Time In : 1300 Time Out: 1345 Total Time with Patient (Min): 45 min MYRA OBREGON, PT 12/09/2022 * Plan of Care - Troy Allen RN - 12/09/2022 10:17 AM CDT Problem: Infection Goal: Absence of infection and prevention of transmission during hospitalization Outcome: Progressing Problem: Knowledge Deficit Goal: Patient and/or family demonstrate readiness to learn Outcome: Progressing Goal: Patient and/or family verbalizes understanding of education, and/or performs desired skill Outcome: Progressing Problem: Discharge Planning Goal: Discharge to home or other facility with appropriate resources Outcome: Progressing Goal: supervisor engraving will develop a plan to decrease their burden and enhance comfort in role Outcome: Progressing Problem: Delirium Goal: Prevent and Manage Delirium Outcome: Progressing Problem: Fall Prevention: Neglect/Hemiparesis Bundle Goal: Patient will be free from Fall Injury Outcome: Progressing Problem: Fall Safety: [place] Precautions Goal: Free from fall injury Outcome: Progressing Problem: Fall Huddle Goal: Free from Fall Injury Outcome: Progressing Problem: Knowledge Deficit Goal: Patient/Family demonstrated knowledge and consent signed for surgery intervention Outcome: Progressing Goal: Patient/Family demonstrated decreased anxiety Outcome: Progressing Problem: Wound Infection Goal: Sterile techinque maintained Outcome: Progressing Goal: No allergic reaction occurred Outcome: Progressing Problem: Fluid Imbalance Goal: Patient fluid balance maintained Outcome: Progressing Problem: Injury Goal: Patient wound closed with all sharps, sponges, instruments and foreign bodies accounted for Outcome: Progressing Goal: Patient/Personnel protected for unnecessary radiation exposure Outcome: Progressing Goal: Patient free of injury related to surgical positioning Outcome: Progressing Goal: Safety precautions taken accordingly to the [employer] standards Outcome: Progressing Goal: Skin integrity maintained Outcome: Progressing Goal: Equipment meets performance and safety criteria Outcome: Progressing Problem: Pain Goal: Patient's Pain/Discomfort is Manageable Outcome: Progressing * Plan of Care - Hyun Barber RN - 12/09/2022 2:26 AM CDT Problem: Infection Goal: Absence of infection and prevention of transmission during hospitalization Outcome: Progressing Flowsheets (Taken 12/02/2022 1118 by Tatianna Pan RN) Absence of infection and prevention of transmission during hospitalization: Assess and monitor for signs and symptoms of infection and vital signs Monitor lab/diagnostic results Administer medications as ordered Problem: Discharge Planning Goal: Discharge to home or other facility with appropriate resources Outcome: Progressing Flowsheets (Taken 12/02/2022 0329) Discharge to home or other facility with appropriate resources: Identify barriers to discharge with patient and caregiver Arrange for needed discharge resources and transportation as appropriate Identify discharge learning needs (meds, wound care, etc) Refer to Case Management Department for Coordinating discharge planning for if the patient needs post-hospital services based on physician order or complex needs related to functional status, cognitive ability or social support system Problem: Pain Goal: Patient's Pain/Discomfort is Manageable Outcome: Progressing Flowsheets (Taken 12/09/2022 0225) Patient's Pain/Discomfort is Manageable: Include patient/family/caregiver in decisions related to pain management Offer non-pharmocological pain management interventions Provide Emotional/Spiritual Support Administer medications as ordered Reassess patient's response and tolerance to discomfort * Plan of Care - Roland Mas RD - 12/08/2022 12:19 PM CDT Problem: Swallowing Difficulty Description: Impaired or difficult movement of food and liquid within the oral cavity to the stomach. Related to: Motor causes, e.g., neurological or muscular disorders, such as cerebral palsy, stroke,multiple sclerosis, scleroderma; or prematurity, altered suck, swallow, breathe patterns, encephalopathy As evidenced by: modified consistency diet. Goal: Improve Nutritional Status Outcome: Completed Flowsheets (Taken 12/08/2022 1218) Meals and Snacks: (regular diet) General healthful diet Enteral and Parenteral Nutrition: (discontinued) -- Medical Food Supplement Therapy: (chocolate Magic Cup TID) Commercial beverage/Oral nutrition supplement * [employer] Treatment Note - [facility] - 12/08/2022 11:20 AM CDT Speech Language Pathologist Treatment Patient Name: Consuelo Darby Patient Birthdate: 1980 Patient Subjective Report - I would really like to try a regular diet. Pain Assessment Pain Context: Therapy Assessment Prior to Treatment (12/08/22 1120) Pain Assessment: None/denies pain (12/08/22 1120) Dysphagia Treatment: Swallow strategy training, Dysphagia diet training and Therapeutic trials Recommended diet: Pills Can Be Taken with Recommended Liquid Consistency, IDDSI 7 - Regular / Regular and IDDSI 0 - Thin Liquids / All Liquids (Softer food selections) Compensatory swallowing techniques: Small bites, Small sips, Eat slowly-control rate, Oral care post PO intake and Seated upright with all PO intake Level of supervision at meals recommended: Assistance with set-up and Distant supervision Patient/Caregiver Training: Completed with patient, Therapy goals and treatment plan, Communicationstrategies, Swallow strategies, Oral hygiene, Current diet and Dysphagia Is patient a candidate for SM Water Protocol? N/A - patient is on IDDSI 0 (thin liquids/all liquids) - has no liquid consistency restrictions ST Narrative:: 1. Patient was seen for therapy in her room, seated in tilt in space wheelchair; alert and cooperative with all tasks. Friend was present in the room. 2. Patient was observed with a trial lunch tray consisting of REGULAR texture solids (black islas burger on a bun, [place] fries, brownie) and THIN LIQUIDS. Patient ate at a slow rate and took small bites and sips. She reported that the meat was dry and the fries were overcooked. Mild impairment noted with management of food on the left side of the oral cavity with a small amount of spillage. Patient was aware of food remaining in the left cheek and was able to manage with extra time and with a liquid wash. Patient ate only a couple of bites of the burger and then continued with her modified consistency tray (pasta and diced carrots). [employer] discussed appropriate food choices to order on a regular texture diet. Patient verbalized understanding. Recommend diet be upgraded to REGULAR texture at this time. [employer] to continue to monitor for tolerance and safety. 3. Patient remained in her room with call light and phone left within reach. Chair alarm activated.Friend present in the room. ST Session Outcomes: Patient/family education progressing, Progressing toward STGs, Tolerated treatment well, Diet upgraded and Minimal cues during session ST Summary Plan of Care: Continue with current plan of care Pain Evaluation and Follow-up Pain Reassessment: 0, No pain (12/08/22 1205) Nursing notified of patient's pain assessment: Not indicated - pain score 2 or less (12/08/22 1205) Therapy Minutes Individual Concurrent Co-Treat Time In : 1120 Time Out: 1206 Breaks/Pauses (Min): 0 mins Total Time with Patient (Min): 46 min Missed Minutes : [address] 12/08/2022 * Plan of Care - Cristhian Sofia - 12/08/2022 10:54 AM CDT Problem: Infection Goal: Absence of infection and prevention of transmission during hospitalization Outcome: Progressing Problem: Knowledge Deficit Goal: Patient and/or family demonstrate readiness to learn Outcome: Progressing Goal: Patient and/or family verbalizes understanding of education, and/or performs desired skill Outcome: Progressing Problem: Discharge Planning Goal: Discharge to home or other facility with appropriate resources Outcome: Progressing Goal: supervisor engraving will develop a plan to decrease their burden and enhance comfort in role Outcome: Progressing Problem: Delirium Goal: Prevent and Manage Delirium Outcome: Progressing Problem: Fall Prevention: Neglect/Hemiparesis Bundle Goal: Patient will be free from Fall Injury Outcome: Progressing Problem: Fall Safety: [place] Precautions Goal: Free from fall injury Outcome: Progressing Problem: Fall Huddle Goal: Free from Fall Injury Outcome: Progressing Problem: Knowledge Deficit Goal: Patient/Family demonstrated knowledge and consent signed for surgery intervention Outcome: Progressing Goal: Patient/Family demonstrated decreased anxiety Outcome: Progressing Problem: Wound Infection Goal: Sterile techinque maintained Outcome: Progressing Goal: No allergic reaction occurred Outcome: Progressing Problem: Fluid Imbalance Goal: Patient fluid balance maintained Outcome: Progressing Problem: Injury Goal: Patient wound closed with all sharps, sponges, instruments and foreign bodies accounted for Outcome: Progressing Goal: Patient/Personnel protected for unnecessary radiation exposure Outcome: Progressing Goal: Patient free of injury related to surgical positioning Outcome: Progressing Goal: Safety precautions taken accordingly to the [employer] standards Outcome: Progressing Goal: Skin integrity maintained Outcome: Progressing Goal: Equipment meets performance and safety criteria Outcome: Progressing Problem: Pain Goal: Patient's Pain/Discomfort is Manageable Outcome: Progressing * OT Treatment Note - Roland FrankieKae Avendano, OT - 12/08/2022 10:35 AM CDT Occupational Therapy Treatment Patient Name: Consuelo Darby Patient Birthdate: 1980 Patient Subjective Report - My arm hurts after doing ROM yesterday. Pain Assessment Pain Context: Therapy Assessment Prior to Treatment (12/08/22 105) Pain Assessment: NRS 0-10 (12/08/22 105) Pain Score: 0 - No pain (12/08/22 105) Pain Severity - NRS (Calculated): No pain (12/08/22 105) ADL Training: ADL Training Narrative: EATING: ORAL HYGIENE: supervision TOILETING: simulated--two person assist for safety with standing BATHING: UB DRESSING: max assist; she is able to assist with donning R arm into shirt; assist needed for allother aspects of donning/doffing button down shirt LB DRESSING: PUTTING ON/TAKING OFF FOOTWEAR: min a while seated in w/c. Assist for donning L shoe. It appears that pt would benefit from elastic shoelaces. ROLL LEFT AND RIGHT: SIT TO LYING: LYING TO SITTING: SIT TO STAND: max assist; support to L knee and hip while standing BED TO CHAIR TRANSFER: TOILET TRANSFER: mod to max of one to transfer to right onto commode; two person assist for safety with transferring commode to w/c (toward the left side). Pt's sister Cass was present for familytraining--discussed and demonstrated transfer and toileting technique and safety. She was also briefly educated on shoulder ROM and shoulder protection during transfers. Pt tolerated PROM to 90 degrees of shoulder flexion and abduction; she c/o discomfort in left shoulder with full horizontal abduction. Treatment, Outcomes and Plan: OT Narrative:: Ms Darby is motivated and cooperative. She is making good progress with ADLs and transfers. Her sister Cass was present for family training this date. Continued intensive OT recommended to maximize functional independence and safety. OT Treatment Outcomes:: Safety device reapplied, Patient tolerated treatment well, Patient is progressing toward STG(s), Goals met for this session, Improved ADL performance and Improved ability to perform functional transfers OT Summary Plan of Care: Continue with current plan of care Pain Evaluation and Follow-up Pain Reassessment: 0, No pain (12/08/22 1249) Nursing notified of patient's pain assessment: Not indicated - pain score 2 or less (12/08/22 1249) Therapy Minutes Individual Concurrent Co-Treat Individual (OT) Time In : 1035 Time Out: 1115 Total Time with Patient (Min): 40 min ROLAND AVENDANO, OT 12/08/2022 * PT Treatment Note - Tia Felix, PT - 12/08/2022 9:00 AM CDT PT Treatment Patient Name: Consuelo Darby Patient Birthdate: 1980 Patient Subjective Report - I hope this leg and arm wake up. [facility] Pain Assessment Pain Context: Therapy Assessment Prior to Treatment (12/08/22 0900) Pain Assessment: None/denies pain (12/08/22 09) Helmet on for craniectomy protection for entire session. Bed Mobility: Performed on bed Bed Mobility Comment: Supine to sit = max A for trunk and L hemibody; cues for sonya-compensatory technique, sequencing, L sonay-body attention Gait Analysis: 10' x1, 25' x1, 30' x2, and 40' x1 with R sonya-aide and max A x1 for balance and LLEmanagement; 2nd person required for cane management on first walk only, then pt progressed to beingable to advance cane appropriately without assist - only required verbal cues; additional person for w/c follow for safety on each walk; L sling for glenohumeral support, L francisco wrap for DF; notable in itiation/trace movement of L hip flexion on swing at times; improved with cues and practice, thoughnot consistent; assist to fully advance L swing and total assist to stabilize L knee from buckling required; Deviations include sonya- paretic gait pattern, decreased wt shift R with lean L, L LE assist /stabilization as noted, L neglect, flexed posture, R head rotation Trials/Comments1: Transfer board = mod/max A for force production, balance, and LLE positioning/stability; L negelct noted; level surfaces only, practiced to R and L; slight improvement going towardsR Trials/Comments 2: Stand-pivot without device = max A for balance and L knee block/positioning; cues for safety, technique, sequencing, and L attention; practiced to R and L; slightly improved going towards R Trials/Comments 3: Sit-stand with R sonya-aide = mod A for balance and L knee block, slight L lean; cues for safety, hand placement, and technique; repeated practice during gait training Propulsion Method: Right upper extremity and Right lower extremity Wheelchair Analysis: 95' including turns with mod/max A for steering, L attention; increased time and cues required Therapeutic Activities and Neuromuscular Re-education: BALANCE/NMRE: -Static sitting balance EOM with SBA and cues for posture, midline orientation, and L attention; x5min - Dynamic sitting balance EOM with reaching within and slightly outside CARMEN with R UE during balloon volleyball; min A for balance, cues for safety, L attention, balance recovery (lean/LOB L and posterior noted) -Dyanmic sitting balance with NMRE/ROM: sitting EOM with R UE shoulder flexion x10, focus on upright posture and core control; cervical rotation R/L x10, emphasis on fully turning/looking/visual tracking L; trunk rotation with R UE reaching posteriorly and then anteriorly and L, head turning and visual tracking in each direction as well, cues for L attention and balance/stability recovery; CGA tooccasional min A for all components PT Treatment Outcomes:: Safety device reapplied, Qualitative gains in function, Improved ambulationperformance and Goals met for this session PT Summary:: Significant progress noted with ambulation, particularly with initiation/trace movement of L swing. Cont PT POC to maximize neuromuscular recovery, decrease fall risk, and promote level of safety and independence with mobility. PT Summary Plan of Care: Continue with current plan of care Pain Evaluation and Follow-up Pain Reassessment: 0, No pain (12/08/22 1000) Nursing notified of patient's pain assessment: Not indicated - pain score 2 or less (12/08/22 1000) Therapy Minutes Individual Concurrent Co-Treat Individual (PT) Time In : 0900 Time Out: 1035 Total Time with Patient (Min): 95 min TIA FELIX, PT, DPT 12/08/2022 * Plan of Care - Awilda Gonsalves RN - 12/08/2022 1:43 AM CDT Problem: Discharge Planning Goal: Discharge to home or other facility with appropriate resources Outcome: Progressing Flowsheets (Taken 12/02/2022 0329 by Hyun Barber RN) Discharge to home or other facility with appropriate resources: Identify barriers to discharge with patient and caregiver Arrange for needed discharge resources and transportation as appropriate Identify discharge learning needs (meds, wound care, etc) Refer to Case Management Department for Coordinating discharge planning for if the patient needs post-hospital services based on physician order or complex needs related to functional status, cognitive ability or social support system * Plan of Care - Cristhian Sofia - 12/07/2022 1:06 PM CDT Problem: Infection Goal: Absence of infection and prevention of transmission during hospitalization Outcome: Progressing Problem: Knowledge Deficit Goal: Patient and/or family demonstrate readiness to learn Outcome: Progressing Goal: Patient and/or family verbalizes understanding of education, and/or performs desired skill Outcome: Progressing Problem: Discharge Planning Goal: Discharge to home or other facility with appropriate resources Outcome: Progressing Goal: supervisor engraving will develop a plan to decrease their burden and enhance comfort in role Outcome: Progressing Problem: Delirium Goal: Prevent and Manage Delirium Outcome: Progressing Problem: Fall Prevention: Neglect/Hemiparesis Bundle Goal: Patient will be free from Fall Injury Outcome: Progressing Problem: Fall Safety: [place] Precautions Goal: Free from fall injury Outcome: Progressing Problem: Fall Huddle Goal: Free from Fall Injury Outcome: Progressing Problem: Knowledge Deficit Goal: Patient/Family demonstrated knowledge and consent signed for surgery intervention Outcome: Progressing Goal: Patient/Family demonstrated decreased anxiety Outcome: Progressing Problem: Wound Infection Goal: Sterile techinque maintained Outcome: Progressing Goal: No allergic reaction occurred Outcome: Progressing Problem: Fluid Imbalance Goal: Patient fluid balance maintained Outcome: Progressing Problem: Injury Goal: Patient wound closed with all sharps, sponges, instruments and foreign bodies accounted for Outcome: Progressing Goal: Patient/Personnel protected for unnecessary radiation exposure Outcome: Progressing Goal: Patient free of injury related to surgical positioning Outcome: Progressing Goal: Safety precautions taken accordingly to the [employer] standards Outcome: Progressing Goal: Skin integrity maintained Outcome: Progressing Goal: Equipment meets performance and safety criteria Outcome: Progressing Problem: Pain Goal: Patient's Pain/Discomfort is Manageable Outcome: Progressing * PT Treatment Note - Tia Felix, PT - 12/07/2022 1:02 PM CDT PT Treatment Patient Name: Consuelo Darby Patient Birthdate: 1980 Patient Subjective Report - I'm getting better, I just wish this leg would work. Agreeable to PT.Reports fatigue, but pleasant and motivated. Pain Assessment Pain Context: Therapy Assessment Prior to Treatment (12/07/22 130) Pain Assessment: NRS 0-10 (12/07/22 1302) Pain Score: 5 - Moderate Pain (12/07/22 1302) Pain Severity - NRS (Calculated): Moderate (12/07/22 1302) Pain Type: Acute pain (12/07/22 1302) Pain Location: Hip (12/07/22 1302) Pain Orientation: Left (12/07/22 130) Pain Descriptors: Aching, Sore (12/07/22 1302) Pain Onset: Ongoing (12/07/22 1302) Pain Frequency: Intermittent (12/07/22 1302) Aggravating Factors: Activity Duration (12/07/22 1302) Alleviating Factors: reports usually with sit-stand, otherwise improved (12/07/22 1302) Functional Impact: Transfers, Turning (12/07/22 1302) Pre-therapy pain intervention required: Patient expressed pain is tolerable/able to proceed, Nurse notified (12/07/22 130) Pain Interventions Education Provided: Patient (12/07/22 130) Emotional/Spiritual Pain Interventions: Empathetic Discussion (12/07/22 130) Bed Mobility: Performed on bed Bed Mobility Comment: Sit to supine = max A for LLE and trunk, cues for sonya- compensatory techniques, increased time and cues required Gait Analysis: 30' x3 with R sonya-aide and max A x1 for balance and LLE plus min A of another to assist with cane placement; 3rd person for w/c follow for safety; L UE sling for glenohumeral support,francisco wrap for L DF, helmet for craniectomy protection in place; demonstrates sonya-paretic gait pattern, total assist to advance/block LLE, decreased wt shift R with lean L, 3 point step-to pattern Trials/Comments1: Sit-stand with R sonya-aide = mod/max A for balance, L knee block; cues for hand placement and technique, cues for wt shift R and L attention Trials/Comments 2: Pivot with no device = max A towards R; assist for balance and LLE stability, leans L, L inattention Propulsion Method: Right upper extremity and Right lower extremity Wheelchair Analysis: 50' x1 with mod/max A for steering and propulsion; L neglect, cues for safety and guidance Therapeutic Activities and Neuromuscular Re-education: NMRE: Supine - performed R heel slides x15, L PROM hip/knee flexion x10, bridging x10 with assist for L LE postioning/stabilization, B BKFO and return with emphasis on co-contraction and L attention; L LE PROM in PNF patterns x10; neuromuscular facilitory techniques utilized, cues for L attention PT Treatment Outcomes:: Safety device reapplied, Qualitative gains in function, Goals met for this session and Improved ambulation performance PT Summary:: Cont PT POC to maximize neuromuscular recovery, decrease fall risk, and promote level of safety and independence with functional mobility. PT Summary Plan of Care: Continue with current plan of care Pain Evaluation and Follow-up Pain Reassessment: 3 (12/07/22 0394) Nursing notified of patient's pain assessment: Primary Nurse (12/07/22 6080) Therapy Minutes Individual Concurrent Co-Treat Individual (PT) Time In : 1302 Time Out: 1349 Total Time with Patient (Min): 47 min TIA FELIX PT, DPT 12/07/2022 * [employer] Treatment Note - [facility] - 12/07/2022 12:12 PM CDT Speech Language Pathologist Treatment Patient Name: Consuelo Darby Patient Birthdate: 1980 Patient Subjective Report - It's so nice to have real food. Pain Assessment Pain Context: Therapy Assessment Prior to Treatment (12/07/22 121) Pain Assessment: None/denies pain (12/07/22 121) Cognitive Communication: Insight, Orientation, Visual strategies, Task persistence and Self monitoring Dysphagia Treatment: Swallow strategy training, Dysphagia diet training and Therapeutic trials Recommended diet: IDDSI 6 - Soft & Bite-Sized / NDD3, Pills Whole in IDDSI 4 (Pureed / Extremely Thick) and IDDSI 0 - Thin Liquids / All Liquids (May have ice chips PRN unsupervised after oral care.) Compensatory swallowing techniques: Small bites, Small sips, Eat slowly-control rate, Oral care post PO intake and Seated upright with all PO intake Level of supervision at meals recommended: Assistance with set-up and Monitor at meals and assist as needed Patient/Caregiver Training: Completed with patient, Therapy goals and treatment plan, Cognitive strategies, Communication strategies, Dysarthria, Swallow strategies, Oral hygiene, Current diet and Dysphagia Is patient a candidate for SM Water Protocol? Yes (To be further assessed) ST Narrative:: 1. Patient was seen for therapy in her room, seated in tilt in space wheelchair; alert and cooperative with all tasks. Parents present in the room. 2. Patient was observed with her lunch tray consisting of SOFT & BITE SIZED solids and THIN LIQUIDS. Patient ate at a slow rate and took small bites and sips. She managed food on the left side ofthe oral cavity with only minimal spillage. Patient was aware of spillage most of the time on her own. Patient asked about diet upgrade to regular. Will try a regular trial tray tomorrow. 3. Patient was able to tell time on an analog clock when given a choice of three times with 90% accuracy with moderate cueing provided. 4. Patient completed a task for left visual attention by matching a target shape on the left to several identical shapes with 88% accuracy with moderate cueing provided. 5. Patient remained in her room with call light and phone left within reach. Chair alarm activated.Mother in law present in the room. ST Session Outcomes: Patient/family education progressing, Progressing toward STGs, Tolerated treatment well and Moderate cues during session ST Summary Plan of Care: Continue with current plan of care Pain Evaluation and Follow-up Pain Reassessment: 0, No pain (12/07/22 1255) Nursing notified of patient's pain assessment: Not indicated - pain score 2 or less (12/07/22 1255) Therapy Minutes Individual Concurrent Co-Treat Time In : 1212 Time Out: 1258 Breaks/Pauses (Min): 0 mins Total Time with Patient (Min): 46 min Missed Minutes : [address] 12/07/2022 CHART CORRECTION: Type of Chart Edit: Correction Reason for Correction: Other (comment) (correction of information) Name: Peyton Wolfe MS, CCC-[employer] Date: 12/08/2022 Time: 17:26 CDT * PT Treatment Note - Kellie Moran, PT - 12/07/2022 10:30 AM CDT PT Treatment Patient Name: Consuelo Darby Patient Birthdate: 1980 Patient Subjective Report - pt reports ready for therapy. Did not sleep well. Pain in left hip withmovement. Pain Assessment Pain Context: Therapy Assessment Prior to Treatment (12/07/22 1030) Pain Assessment: NRS 0-10 (12/07/22 1030) Pain Score: 4 - Moderate Pain (8 with movement) (12/07/22 1030) Pain Severity - NRS (Calculated): Moderate (12/07/22 1030) Pain Location: Hip (12/07/22 1030) Pain Orientation: Left (12/07/22 1030) Pain Descriptors: Aching, Sharp, Sore (12/07/22 1030) Pain Onset: Ongoing (12/07/22 1030) Pain Frequency: With activity (12/07/22 1030) Pre-therapy pain intervention required: Patient expressed pain is tolerable/able to proceed (12/07/22 1030) Pain Interventions Non-Pharmacologic Pain Interventions: Position/Reposition (12/07/22 1116) Bed Mobility Comment: Sit to supine on hosp bed: mod of two for trunk and left side assist. Trials/Comments1: Sit to stand with mod/max on left for knee block, lift assist. stand pivot with right UE support on grab bar or bedrail: max assist to block left leg, trunk control. Trials/Comments 2: W/c to/from car simulator with use of transfer board to level seat: max of one and min of another for trunk control with management of left side in/out of car. Wheelchair Analysis: Ronald from [facility] [employer] arrived with [employer]. Pt transferred from w/c to [facility] [employer]. Contoured positioning back adjusted to allow more depth in w/c. Armrests adjusted to provided appropriate UE support and facilitate upright trunk posture, centered posture. Pt with half lap tray for left UE support. Leg rests adjusted for appropriate positioning. Pt on air cushion and reported comfort. Therapeutic Activities and Neuromuscular Re-education: Positioning in new [employer] w/c Sit to stand and noted. Positioned supine in bed at end of session due to fatigue and need for bladder scan. Left UE supported on pillow. PT Treatment Outcomes:: Safety device reapplied and Patient tolerated treatment well PT Summary:: Ms. Darby tolerated the session well. Fit into [employer] from [facility] with good positioning. She works hard and will continue to benefit from intensive therapy to maximize functional gains. PT Summary Plan of Care: Continue with current plan of care Pain Evaluation and Follow-up Response to Therapy Interventions: Other (comment) (during movement up to 8/10. end of session in bed, no pain.) (12/07/22 1116) Pain Reassessment: 0, No pain (12/07/22 1116) Therapy Minutes Individual Concurrent Co-Treat Individual (PT) Time In : 1030 Time Out: 1116 Total Time with Patient (Min): 46 min KELLIE MORAN, PT 12/07/2022 CHART CORRECTION: Type of Chart Edit: Addendum Reason for Correction: Additional information added (car transfer to simulator left out in error.) Name: Kellie Moran, PT Date: 12/13/2022 Time: 19:13 CDT * OT Treatment Note - Roland Avendano, OT - 12/07/2022 9:45 AM CDT Occupational Therapy Treatment Patient Name: Consuelo Darby Patient Birthdate: 1980 Patient Subjective Report - Sure, I'm ready (regarding getting up and out of bed). Pain Assessment Pain Context: Therapy Assessment Prior to Treatment (12/07/22942) Pain Assessment: NRS 0-10 (12/07/22942) Pain Score: 0 - No pain (left hip pain 8/10 with movement, no pain at rest) (12/07/22942) Pain Severity - NRS (Calculated): No pain (12/07/22942) ADL Training: ADL Training Narrative: EATING: set up for drinking water (pt brushed teeth prior to start of session) ORAL HYGIENE: pt completed oral hygiene prior to start of session TOILETING: BATHING: UB DRESSING: LB DRESSING: PUTTING ON/TAKING OFF FOOTWEAR: dependent while supine in bed. ROLL LEFT AND RIGHT: supervision for rolling to left; max a for rolling to right SIT TO LYING: LYING TO SITTING: two person assist for safety SIT TO STAND: BED TO CHAIR TRANSFER: two person assist with sliding board bed to w/c and w/c to and from mat (approaching one person assist). TOILET TRANSFER: OT Therapeutic Activity: Therapeutic Exercise: Ms Darby tolerated sitting on EOM for 30 min with CGA to min a for balance, and cues for upright posture. She participated in L UE PROM and AAROM (possible trace movements in L UE). She tolerated shoulder flexion to about 90 degrees. She reported some discomfort in L shoulder with horizontal abduction and with about 60 degrees of external rotation. Treatment, Outcomes and Plan: OT Narrative:: Ms Darby is motivated and cooperative. She is making good progress with transfers (practiced sliding board transfers toward the left side today). She is also making good progress with sitting balance. Continued intensive OT recommended. OT Treatment Outcomes:: Safety device reapplied, Patient tolerated treatment well, Patient is progressing toward STG(s), Goals met for this session, Improved ability to perform functional transfers and Improved balance and coordination OT Summary Plan of Care: Continue with current plan of care Therapy Minutes Individual Concurrent Co-Treat Individual (OT) Time In : 944 Time Out: 1030 Total Time with Patient (Min): 45 min ROLAND AVENDANO, OT 12/07/2022 * Plan of Care - Shannon Celis RN - 12/07/2022 12:26 AM CDT Problem: Infection Goal: Absence of infection and prevention of transmission during hospitalization Outcome: Progressing Flowsheets (Taken 12/02/2022 1118 by Tatianna Pan RN) Absence of infection and prevention of transmission during hospitalization: Assess and monitor for signs and symptoms of infection and vital signs Monitor lab/diagnostic results Administer medications as ordered Problem: Fall Prevention: Neglect/Hemiparesis Bundle Goal: Patient will be free from Fall Injury Outcome: Progressing Problem: Wound Infection Goal: Sterile techinque maintained Outcome: Progressing Problem: Injury Goal: Patient wound closed with all sharps, sponges, instruments and foreign bodies accounted for Outcome: Progressing * Plan of Care - Diamond Bruno RN - 12/06/2022 3:03 PM CDT Problem: Infection Goal: Absence of infection and prevention of transmission during hospitalization Outcome: Progressing * OT Treatment Note - Cristhian Alejandra, ERIN - 12/06/2022 12:26 PM CDT Occupational Therapy Treatment Patient Name: Consuelo Darby Patient Birthdate: 1980 Patient Subjective Report - My hip bothers me, but only when I move it. Pain Assessment Pain Context: Therapy Assessment Prior to Treatment (12/06/221114) Pain Assessment: NRS 0-10 (12/06/221114) Pain Score: 0 - No pain (12/06/221114) Pain Severity - NRS (Calculated): No pain (12/06/221114) OT Therapeutic Activity: Therapeutic Exercise: LUE PROM in all planes 1 set x 15 reps to increase/maintain overall ROM in LUE. Therapeutic Activity: While seated at table top, patient scanned to L side to grasp pegs and place in peg board also placed on L side to address L in attention. Cognitive component incorporated as patient asked to name a food that was the same color as the peg she was placing in the board. Minimal verbal cues needed for scanning. Dynamic sitting balance activity completed while seated in wheelchair reaching for islas bags on L side and handing to therapist in various planes while weight bearing into LUE. Cognitive component incorporated as patient asked to recall sequence of 3 colors at a time to retrieve. Able to maintain sitting balance in wheel chair without support of back rest with SBA. Rest breaks taken as needed. Patient Education: Educated patient regarding PROM exercises she could complete for L shoulder while LUE in sling. Rocking shoulder back and forth for shoulder abduction/adduction and lifting arm away from chest for shoulder flexion/extension. Treatment, Outcomes and Plan: OT Narrative:: Patient agreeable to therapy and tolerated session well. OT Treatment Outcomes:: Safety device reapplied and Patient tolerated treatment well OT Summary Plan of Care: Continue with current plan of care Pain Evaluation and Follow-up Pain Reassessment: 0, No pain (12/06/22 1200) Therapy Minutes Individual Concurrent Co-Treat Individual (OT) Time In : 1115 Time Out: 1200 Total Time with Patient (Min): 45 min CRISTHIAN ALEJANDRA, OT 12/06/2022 * PT Treatment Note - Kellie Moran, PT - 12/06/2022 10:30 AM CDT PT Treatment Patient Name: Consuelo Darby Patient Birthdate: 1980 Patient Subjective Report - pt reports min improved pain but still increased left hip pain with movement. Ready for therapy. Happy with upgraded diet. Pain Assessment Pain Context: Therapy Assessment Prior to Treatment (12/06/22 1030) Pain Assessment: NRS 0-10 (12/06/22 1030) Pain Score: 4 - Moderate Pain (sitting still 4/10. with movement 8/10) (12/06/22 1030) Pain Severity - NRS (Calculated): Moderate (12/06/22 1030) Pain Location: Hip (12/06/22 1030) Pain Orientation: Left (12/06/22 103) Pain Descriptors: Aching, Burning, Shooting, Other (Comment) (into thigh at times) (12/06/22 1030) Pain Onset: Ongoing (increases with movement) (12/06/22 1030) Pain Frequency: With activity (12/06/22 103) Functional Impact: Self care/ADL's, Transfers, Turning (12/06/22 103) Pre-therapy pain intervention required: Patient expressed pain is tolerable/able to proceed, Nurse notified (12/06/22 103) Pain Interventions Non-Pharmacologic Pain Interventions: Position/Reposition, Exercise/Activity (12/06/22 1114) Gait Analysis: Sling to support left UE. Francisco wrap to assist left ankle into DF. Helmet in place Use of sonya-aid on right. Pt ambulated 5steps with max on left to advance and block left leg, min on right for cane management, and balance. W/c follow Distance limited due to left hip pain, fatigue, balance. Trials/Comments1: Sit to stand to sonya aid on right: mod/max on left for knee block, lift assist. stand pivot with use of right UE on armrest or bedrail: max assist and stand by of another. Trials/Comments 2: W/c to/from level surface with use of transfer board: max assist for left side support, positioning. cues to bring wt/trunk anterior and control push with right UE. Wheelchair Analysis: Pt tolerated light wt w/c, contoured back, left half lap tray. Recommended DME: w/c consult through [facility]. Recommend manual light weight w/c for home use at discharge as Ms. Darby is not functionally ambulating at this time, w/c will be her primary mode of mobility. Recomment Catalyst 4C 20inches wide by 18 inches deep to provide appropriate hip positioning. Contoured positioning back 20wx20 length to provide appropriate lateral trunk support, control left list, faciliate midline trunk and head control due to left hemiparesis, left inattention and right gaze preference. Recommend footplate leg restswith heel loops for safe foot positioning due to left leg flexion posturing at times. Push locks with extension handles to allow application by pt with right UE, and removal of extension for transferboard transfers as able. Recommend pneumatic wheels with airless inserts for improved maintenance and ease. Ms. Darby will benefit from height adjustable, flip back arm rests due to recommend half lap tray on left for UE support. Requires adjustable height to provide appropriate left UE support, control shoulder subluxation/safety. Left half lap tray to provide appropriate support for hemipareticleft upper extremity. Flip back armrests required due to use of transfer board for transfers at times, varies with fatigue. Anti tippers and pelvic positioning belt needed for safety, pt can self propel with right leg with some assist, potential to push chair back and hips slide anterior. Pressure relieving cushion: recommend vicair-adjuster electrical contacts O2 low cushion with incontinence cover- pt will have prolonged sitting, non-functional ambulator at this time and will benefit from pressure relieving cushion to prevent pressure ulcers. A rigid insert will be beneficial for pelvic positioning, control left leg internal rotation, maintain neutral positioning, improve left hip pain. Therapeutic Activities and Neuromuscular Re-education: Sit to stand to sonya-aid on right: mod/max on left for knee block, lift assist. Repeated x3. Stood x60 seconds with focus on wt shift right, midline positioning, scanning left. PT Treatment Outcomes:: Safety device reapplied and Patient tolerated treatment well PT Summary:: Ms. aDrby tolerated the session better this date. Left hip pain continues and increases with movement but slightly better vs yesterday. She works hard and continues to make steady progress. Adjusted transfer in room to mod of two for bed mobility for safety and use of myra-flex lift bed to/from w/c vs use of little. Sitting balance continues to improve. She will continue to benefit from intensive therapy to maximize functional gains in preparation for discharge home. PT Summary Plan of Care: Continue with current plan of care Pain Evaluation and Follow-up Response to Therapy Interventions: Other (comment) (tolerated the session. slightly improved from yesterday. still 6-8/10) (12/06/22 111) Pain Reassessment: 4 (12/06/22 111) Nursing notified of patient's pain assessment: Primary Nurse (12/06/221113) Therapy Minutes Individual Concurrent Co-Treat Individual (PT) Time In : 1030 Time Out: 1115 Total Time with Patient (Min): 45 min KELLIE MORAN, PT 12/06/2022 CHART CORRECTION: Type of Chart Edit: Addendum Reason for Correction: Additional information added (adjustment on w/c recommendation) Name: Kellie Moran, PT Date: 12/07/2022 Time: 10:56 CDT * [employer] Instrumental Swallowing Evaluation - [facility] Mehdi - 12/06/2022 9:42 AM CDT Speech Language Pathologist Instrumental Swallow Evaluation Patient Name: Consuelo Darby Patient Birthdate: 1980 Patient Subjective Report - I can't wait for a Coke Zero. 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 Aspiration noted with thin liquids taken both via teaspoon and via cup. Immediate cough followed. No laryngeal penetration nor aspiration were observed with any other consistency. Patient presented with reduced mastication of the solid texture (cracker) due to left facial weakness. Solid pieces of the bolus remained unchewed. TREATMENT RECOMMENDATIONS-- 1. Begin PUREED texture diet (IDDSI 4) 2. Begin MILDLY THICK/NECTAR LIQUIDS (IDDSI 2) 3. Medications crushed in puree 4. May have ice chips 1-2 at a time as requested. Patient may have ice chips without direct supervision; remove melted ice from the room. 5. Upright for all PO intake 6. Slow rate during meals; Small bites/sips 7. Assist with set-up of tray. Monitor with meals and assist as needed. 8. Oral care following meals Cognitive status: Compliant, Awake and alert and Able to follow directions/strategies Motor control: Fed self during exam Viewing Plane: Lateral Consistencies tested: IDDSI 7 - Regular / Regular, IDDSI 4 - Pureed / NDD1, IDDSI 3 - Moderately Thick / Honey Thick Liquids, IDDSI 2 - Mildly Thick / [employer] Thick Liquids and IDDSI 0 - Thin Liquids / All Liquids Oral phase impairments: Prolonged mastication and Oral residue Pharyngeal phase impairment: Penetration (Comment) (Trace laryngeal penetration x1 with thin liquid) Rosenbek's Penetration Aspiration Scale: Contrast does not enter airway. Esophageal phase impairments: Appears within functional limits VFSS/MBS results stored in secured place: Yes Additional Status & Goals: N/A Evaluation Summary: Modified Barium Swallow was performed in conjunction with radiology using lateral views. Per MBSImP protocol, standardized barium viscosities were used. The patient was given thin liquid, nectar thick liquid, honey thick liquid, pudding consistency and cracker dipped in pudding/barium mix. Barium was administered via 5 mL teaspoon boluses, via spoon and cup, single and sequential swallows. ORAL STAGE-- Lip Closure: No labial escape Tongue Control During Bolus Hold: Cohesive bolus between tongue to palatal seal Bolus Preparation/Mastication: Slow pronlonged chewing/mashing with complete re-collection Bolus Transport/Lingual Motion: Brisk tongue motion Oral Residue: Trace residue lining oral structures Initiation of Pharyngeal Swallow: Bolus head at posterior angle of ramus. PHARYNGEAL STAGE-- Soft Palate Elevation: No bolus between soft palate and pharyngeal wall Laryngeal Elevation: Complete superior movement of thyroid cartilage with complete approximation ofarytenoids to epiglottic petiole Anterior Hyoid Excursion: Complete anterior movement Epiglottic Movement: Complete inversion Laryngeal Vestibular Closure-Height of Swallow: No contrast in the laryngeal vestible Pharyngeal Stripping Wave: Present; complete Pharyngeal Contraction: Unable to assess in lateral view Pharyngoesophageal Segment Opening: Complete distension and complete duration; no obstruction of flow Tongue Base Retraction: No contrast between the tongue base and pharyngeal wall Pharyngeal Residue: Complete pharyngeal clearance ESOPHAGEAL STAGE-- Esophageal Clearance Upright Position: Complete clearance OVERALL SWALLOWING FUNCTION:: Significant improvement noted from prior swallow study performed on 11/27/22. Swallow initiation was timely with no pharyngeal residue observed. No aspiration observed with any consistency presented. Transient laryngeal penetration was observed x1 with thin liquid; no additional pharyngeal penetration observed. Patient presented with slowed mastication of the solid texture (cracker) due to left facial weakness. She was able to clear the oral cavity with only minimalresidue remaining. TREATMENT RECOMMENDATIONS-- 1. Continue SOFT & BITE SIZED texture diet (IDDSI 6) 2. Begin THIN LIQUIDS (IDDSI 0) 3. Medications given whole with puree or with water as tolerated; may also be given through the PEG. 4. Upright for all PO intake 5. Slow rate during meals; Small bites/sips 6. Assist with set-up of tray. Monitor with meals and assist as needed. 7. Oral care following meals EDUCATION-- Patient was educated regarding results of the study. Physician was notified and orders written for diet change. Results were discussed with RN. Recommended diet: IDDSI 6 - Soft & Bite-Sized / NDD3, Pills Whole in IDDSI 4 (Pureed / Extremely Thick) and IDDSI 0 - Thin Liquids / All Liquids Compensatory swallowing techniques recommended: Eat slowly-control rate, Small bites, Small sips, Seated upright with all PO intake and Oral care post PO intake Level of supervision at meals recommended: Monitor at meals and assist as needed and Assistance with set-up Is patient a candidate for SM Water Protocol? N/A - patient is on IDDSI 0 (thin liquids/all liquids) - has no liquid consistency restrictions (Will further assess for candidacy.) Pain Evaluation and Follow-up Pain Reassessment: 0, No pain (12/06/22 1021) Nursing notified of patient's pain assessment: Not indicated - pain score 2 or less (12/06/22 1021) Therapy Minutes VFSS/MBS Evaluation (ST) Time In : 0940 Time Out: 1025 Breaks/Pauses (Min): 0 mins Time calculation (min): [address] 12/06/2022 * PT Treatment Note - Myra Obregon, PT - 12/06/2022 8:15 AM CDT PT Treatment Patient Name: Consuelo Darby Patient Birthdate: 1980 Patient Subjective Report - Pt reports she is doing well this morning, is bummed that her hip hurts. Pain Assessment Pain Score: 5 - Moderate Pain (12/06/22814) Pain Severity - NRS (Calculated): Moderate (12/06/22814) Pain Location: Hip (12/06/22814) Pain Orientation: Left (12/06/22814) Pre-therapy pain intervention required: Nursing medicated patient - see MAR, Patient expressed painis tolerable/able to proceed (12/06/22814) Pain Interventions Education Provided: Patient (12/06/22814) Non-Pharmacologic Pain Interventions: Distractions, Position/Reposition, Relaxation, Exercise/Activity (12/06/22814) BED MOBILITY: - Rolling: Max to total A towards R, Jorge to L - supine>sit with MaxAx1 and MinAx1 TRANSFERS: - slide boards bed>wc with MaxAx1 and MinAx1 THERAPEUTIC ACTIVITIES: - WC mobility: propels 60ft forward with RUE and RLE and Jorge for steering, propels 60ft backward with RUE/LE with CGA and cues for directions. Pt bumping into objects on L side and when backing up. - PROM and stretching to L lower extremity - pt demos seated reaching forward brushing teeth at sink, cues to look to L side to find toothbrush PT Treatment Outcomes:: Safety device reapplied PT Summary:: Pt tolerated session well, making progress towards goals. Pt continues to benefit fromongoing intensive therapy intervention. PT Summary Plan of Care: Continue with current plan of care Pain Evaluation and Follow-up Pain Reassessment: 5 (reassessed [id number]) (12/06/22814) Nursing notified of patient's pain assessment: Primary Nurse (12/06/22814) Therapy Minutes Individual Concurrent Co-Treat Individual (PT) Time In : 0815 Time Out: 0900 Total Time with Patient (Min): 45 min MYRA OBREGON, PT 12/06/2022 * Plan of Care - Tia Hernandez RN - 12/05/2022 7:42 PM CDT Problem: Fall Safety: [place] Precautions Goal: Free from fall injury Outcome: Progressing Flowsheets (Taken 12/04/2022 4945) Free from fall injury: Perform fall risk assessment and identifiers in place (as applicable) Frequent rounding/monitoring Lighting appropriate Put call light within reach and teach how to call for assistance, respond to call light immediately Use of bed/chair alarm Bed low, locked 2 side rails Offer frequent toileting Toilet magnet in place (IR Only) Encourage patient to wear glasses and hearing aids and to use walking aids when ambulating, non skid socks Safe mobility and activity (this could include chair safety) Assess for environmental or other risks Fall/safety education for patient/family/SO MAR review * Plan of Care - Diamond Bruno RN - 12/05/2022 3:54 PM CDT Problem: Infection Goal: Absence of infection and prevention of transmission during hospitalization Outcome: Progressing * [employer]ICER Treatment Note - [facility] - 12/05/2022 12:06 PM CDT Speech Language Pathologist Treatment Patient Name: Consuelo Darby Patient Birthdate: 1980 Patient Subjective Report - It is sure nice to be able to have water. Pain Assessment Pain Context: Therapy Assessment Prior to Treatment (12/05/22 1206) Pain Assessment: NRS 0-10 (12/05/22 1206) Pain Score: 4 - Moderate Pain (12/05/22 1206) Pain Severity - NRS (Calculated): Moderate (12/05/22 120) Pain Type: Acute pain (12/05/22 120) Pain Location: Hip (12/05/22 1206) Pain Orientation: Right (12/05/22 120) Pain Descriptors: Aching (12/05/22 1206) Pain Onset: Ongoing (12/05/22 120) Pain Frequency: Constant/continuous (12/05/22 120) Pre-therapy pain intervention required: Patient expressed pain is tolerable/able to proceed (12/05/22 120) Pain Interventions Education Provided: Patient (12/05/22 125) Non-Pharmacologic Pain Interventions: Distractions (12/05/22 125) Emotional/Spiritual Pain Interventions: Emotional Support (12/05/22 125) Cognitive Communication: Insight and Orientation Dysphagia Treatment: Swallow strategy training, Dysphagia diet training and Therapeutic trials Recommended diet: IDDSI 2 - Mildly Thick / [employer] Thick Liquids, SM Water Protocol, IDDSI 6 - Soft & Bite-Sized / NDD3 and Pills Whole in IDDSI 4 (Pureed / Extremely Thick) (May have ice chips PRN unsupervised after oral care.) Compensatory swallowing techniques: Small bites, Small sips, Eat slowly-control rate, Oral care post PO intake and Seated upright with all PO intake Level of supervision at meals recommended: Assistance with set-up and Monitor at meals and assist as needed Patient/Caregiver Training: Completed with patient, Therapy goals and treatment plan, Cognitive strategies, Communication strategies, Dysarthria, Swallow strategies, Oral hygiene, Current diet and Dysphagia Is patient a candidate for SM Water Protocol? Yes (To be further assessed) ST Narrative:: 1. Patient was seen for therapy in her room, seated in tilt in space wheelchair; alert and cooperative with all tasks. Mother in law present in the room. 2. Patient was observed with a trial tray of soft and bite sized solids: chicken and dumplings, mashed potatoes and gravy, green beans, peaches. Patient was able to adequately masticate and clear theoral cavity with all food items. Minimal cueing required to wipe the left side of the mouth due to mild spillage. She managed mildly thick liquid without difficulty. Patient ate 100% of her meal. Patient performed oral care at the sink after set-up after the meal. Recommend diet upgrade to SOFT & BITE SIZED (IDDSI 6). Continue mildly thick liquids (IDDSI 2). 3. Patient was able to verbalize the procedures for the Water Protocol. She follows the protocol independently. Recommend a follow-up MBS tomorrow to determine safety of liquid upgrade. 4. Patient remained in her room with call light and phone left within reach. Chair alarm activated.Mother in law present in the room. ST Session Outcomes: Patient/family education progressing, Progressing toward STGs, Tolerated treatment well, Minimal cues during session and Diet upgraded ST Summary Plan of Care: Continue with current plan of care Pain Evaluation and Follow-up Response to Therapy Interventions: Other (comment) (No change) (12/05/22 1252) Pain Reassessment: 4 (12/05/22 1252) Nursing notified of patient's pain assessment: Other (comment) (RN aware) (12/05/22 1252) Therapy Minutes Individual Concurrent Co-Treat Time In : 1206 Time Out: 1252 Breaks/Pauses (Min): 0 mins Total Time with Patient (Min): 46 min Missed Minutes : [address] 12/05/2022 * PT Treatment Note - Kellie Moran, PT - 12/05/2022 10:01 AM CDT PT Treatment Patient Name: Consuelo Darby Patient Birthdate: 1980 Patient Subjective Report - pt reports increased left hip pain. Tearful. Up in chair upon arrival. Pain Assessment Pain Context: Therapy Assessment Prior to Treatment (12/05/22 100) Pain Assessment: NRS 0-10 (12/05/22 100) Pain Score: 4 - Moderate Pain (4 when stationary, up to 8 with movement.) (12/05/22 100) Pain Severity - NRS (Calculated): Moderate (12/05/22 1001) Pain Location: Hip (09/1000) Pain Orientation: Left (12/05/221000) Pain Descriptors: Aching, Shooting, Sharp (shoots into left thigh) (12/05/221000) Pain Onset: Ongoing (12/05/221000) Pain Frequency: With activity (always there- worse with movement) (12/05/221000) Pre-therapy pain intervention required: Patient expressed pain is tolerable/able to proceed, Nurse notified, Nursing medicated patient - see MAR (12/05/221000) Bed Mobility Comment: Sit to supine on mat with mod/max of one and min/mod of another for lift at trunk and control of left leg. Rolled to right sidelying with max assist and min of another, increased support of left leg due to radiating left hip pain. Positioned in right sidelying with 3 pillows between legs. Rolls left with min/mod assist this date. Supine back to sit with mod of two for left side and trunk. Trials/Comments1: Sit to stand with right UE support on parallel bars: mod/max assist to block leftleg, lift, balance. cues for wt shift right/midline. control wt on left leg due to hip pain. Wheelchair Analysis: Pt in light weight w/c with contoured back support, left half lap tray. Pt propelled 60ft with right UE/LE with mod/max support on left for guidance assist to due left inattention, decreased visual tracking left. Improves with cues. Therapeutic Activities and Neuromuscular Re-education: Pt in chair upon arrival, tearful due to increased left hip pain. 4/10 stationary but above 8/10 with any left leg movement. RN and aware. Transferred w/c to level mat with use of transfer board: mod/max of one and stand by of another [facility], going toward right. Static sitting at edge of mat with right UE support: min support initially for midline then close stand by. With cues able to rotatate head left of midline and visual track just left of midline. Tolerated sitting without increased left hip pain. Positioned supine: initial requires pillow support under left leg then gradual increased tolerance to full extension. Gentle PROM to left leg. Use of slov[place] ball under legs for gentle hip rotation in small range, knees to chest: max support of left leg. Positioned onto right sidelying with 3 pillow support between legs: ice to left hip area while in right sidelying. Pt reports improved pain once in this position. Transitioned back to sitting at edge of mat with assist of two and use of transfer board back to w/c. Stood in parallel bars x60 seconds with mod/max support on left to block left knee into extension/balance. PT Treatment Outcomes:: Safety device reapplied and Patient tolerated session fair PT Summary:: Ms. Darby tolerated the session fair due to left hip pain. Dr. Frias and Dr. Alexis aware. She continues to work hard and will benefit from continued intensive therapy to maximize functional gains. PT Summary Plan of Care: Continue with current plan of care Follow up pain: cold applied, empathetic discussion tolerated session, with movement episodes of 10/19 but once in chair 06/19 Primary nurse notified Therapy Minutes Individual Concurrent Co-Treat Individual (PT) Time In : 1001 Time Out: 1052 Total Time with Patient (Min): 51 min KELLIE MORAN, PT 12/05/2022 CHART CORRECTION: Type of Chart Edit: Addendum Reason for Correction: Additional information added (note completion late entry. left open in error.) Name: Kellie Moran PT Date: 12/06/2022 Time: 08:53 CDT * Team Conference - Lynette Bill - 12/05/2022 9:40 AM CDT Team Conference Note Date: 12/05/2022 Time: 11:22 AM CDT Patient Name: Consuelo Darby Date of : 1980 Sex: Female Room/Bed: 303/303-1 Admit Date/Time: 11/17/2022 4:00 PM Patient Active Problem List Diagnosis Date Noted Cerebrovascular accident 11/17/2022 Hypertension 10/19/2022 Team Members Present: Attendees: Yamileth Frias MD, Sandra Land, ManuelD, Diamond Bruno, RN, Roberto Lee, OT, Kellie Moran PT, [facility] Stable Helper in Attendance: Other (comment) (Lynette Bill LMSW) Patient/Family Present: Patient Present: No Patient's Family/Caregiver Present: No Anticipated Discharge 12/14/2022 Discharge Plan: Discharge Destination Details : Own Home Back-up Discharge Destination: Own Home Potential Barriers to Return to Prior Living (Use comments to be specific): Caregiver limitations;Capacity for self care;Mobility challenge;Cognitive challenge;Architectural/environmental barrier(s);Potential need for skills/non- skilled services;Potential need for 24 hour care;Insurance limitations Clinical Barriers : Clinical needs exceed caregiver capacity;Wound Prior Living Environment: Lives w/ spouse, dtr, and children in a 1 story home w/ 8 [address]. 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 Home DME includes: walk in shower, shower chair, 2 ww Therapy [facility] and cushion. Making good progress. In OT, improving with oral care, dependent for self-care apart from eating and transfers. Puree diet,possibly able to advance DME Recommendations: Hosp bed, mattress, transfer board, drop arm bsc Services Recommended at Discharge: Day [place]/ dual referral - if she needs tube feeding dervices at home, will start with home health first. 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 Medical Barriers: L hip pain, Puentes catheter, Medications: Current Facility-Administered Medications: acetaminophen (TYLENOL) tablet 500 mg, 500 mg, Per Tube, Q6H PRN, Nghia Pryor MD, 500 mg at 12/04/22 0139 baclofen (LIORESAL) tablet 5 mg, 5 mg, Oral, Nightly, Yamileth Frias MD, 5 mg at 12/04/22 2100 bethanechol (URECHOLINE) tablet 25 mg, 25 mg, Oral, 3 times per day, Yamileth Frias MD, 25 mg at 12/05/22 0935 bisacodyl (DULCOLAX) suppository 10 mg, 10 mg, Rectal, Daily PRN, Nghia Pryor MD, 10 mg at 12/02/22 1054 cholecalciferol (VITAMIN D3) tablet 2,000 Units, 2,000 Units, Per Tube, Once a day, Nghia Pryor MD, 2,000 Units at 12/05/22 0936 cyclobenzaprine (FLEXERIL) tablet 5 mg, 5 mg, Oral, 3 times per day, Loy Dawson MD, 5 mg at 12/05/22 0937 gabapentin (NEURONTIN) capsule 300 mg, 300 mg, Oral, 3 times per day, Loy Dawson MD, 300 mg at 12/05/22 0935 guaiFENesin (ROBITUSSIN) 100 MG/5ML liquid 10 mL, 10 mL, Enteral, BID PRN, Nghia Pryor MD hydrocortisone (ANUSOL-HC) 2.5 % rectal cream, , Rectal, 2 times per day, Loy Dawson MD, Given at 12/04/22 210 hydrOXYzine (ATARAX) tablet 25 mg, 25 mg, Oral, Q6H PRN, Yamileth Frias MD, 25 mg at 12/04/22 0139 lidocaine (LIDOCARE) 4 % patch 1 patch, 1 patch, Transdermal, Once a day, Loy Dawson MD, 1 patch at 12/04/22 08 loratadine (CLARITIN) tablet 10 mg, 10 mg, Enteral, Once a day, Nghia Pryor MD, 10 mg at 12/05/22 0938 metoprolol tartrate (LOPRESSOR) tablet 25 mg, 25 mg, Enteral, 2 times per day, Nghia Pryor MD, 25 mg at 12/05/22 0936 muscle rub (ICY HOT) 10-15 % cream, , Topical, 3 times per day, Yamileth Frias MD ondansetron ODT (ZOFRAN-ODT) disintegrating tablet 4 mg, 4 mg, Per Tube, Q6H PRN, Marlee Bradley MD, 4 mg at 12/04/22 0139 oxyCODONE (ROXICODONE) immediate release tablet 5 mg, 5 mg, Enteral, Q4H PRN, Marlee Bradley MD, 5mg at 12/05/22 0955 oxyCODONE (ROXICODONE) immediate release tablet 5 mg, 5 mg, Oral, Daily at 0600, Yamileth Frias MD, 5 mg at 12/05/22526 pantoprazole-sodium bicarbonate 2mg/ml oral liquid 40 mg, 40 mg, Per Tube, Daily bef breakfast, Marlee Bradley MD, 40 mg at 12/05/2231 polyethylene glycol (MIRALAX) packet 17 g, 17 g, Per Tube, BID PRN, Yamileth Frias MD, 17 g at 12/03/22924 senna-docusate (SENOKOT-S) 8.6-50 MG tablet 2 tablet, 2 tablet, Enteral, Daily PRN, Nghia Pryor MD, 2 tablet at 12/03/22924 simethicone (MYLICON) chewable tablet 80 mg, 80 mg, Per Tube, BID PRN, Marlee Bradley MD, 80 mg at11/28/222051 tamsulosin (FLOMAX) 24 hr capsule 0.4 mg, 0.4 mg, Enteral, After Breakfast, Nghia Pryor MD, 0.4 mg at 12/05/22936 triamcinolone (KENALOG) 0.1 % ointment, , Apply externally, BID PRN, Nghia Pryor MD, Given at 11/20/222014 verapamil (CALAN) tablet 40 mg, 40 mg, Enteral, Q8H SENDY, Nghia Pryor MD, 40 mg at 12/05/22526 Warfarin Per Policy, , Does not apply, Daily, Nghia Pryor MD Pharmacy: Latest Pharmacy IDT Documentation Value Time User Medications Reviewed: Considerations for Discharge 11/21/2022 10:03 AM Sandra Land, Cal Documented cosiderations for discharge: Pain; Special Meds/Others 11/28/2022 9:19 AM Sandra Land PharmD Current pain medications: Medications Related to Management of Pain acetaminophen (TYLENOL) tablet 500 mg, 500 mg, Per Tube, Q6H PRN, Nghia Pryor MD, 500 mg at 11/20/2210 oxyCODONE (ROXICODONE) immediate release tablet 5 mg, 5 mg, Enteral, Q4H PRN, Marlee Bradley MD, 5 mg at 11/21/22 0115 Lidocaine 4% patch 1 patch daily Gabapentin 300 mg PO TID Baclofen 5 mg tab at bedtime Cyclobenzaprine 5 mg tab TID 12/05/2022 10:04 AM Rosa Hernandez PharmD Considerations to be discussed: warfarin 11/21/2022 10:03 AM Sandra Land PharmD Inpatient Morphine Milligram Equivalents Per Day 11/28 - 12/06 Values displayed are in units of MME/Day Order Start / End Date 11/28 11/29 11/30 12/01 12/02 12/03 Yesterday Today Tomorrow Daily Totals Unknown of Unknown Unknown of Unknown Unknown of Unknown Unknown of Unknown Unknown ofUnknown (at least 7.5) Unknown (at least 7.5) of Unknown (at least 7.5) Unknown (at least 7.5) of Unknown (at least 7.5) 7.5 of Unknown (at least 7.5) 0 of Unknown (at least 7.5) oxyCODONE (ROXICODONE) immediate release tablet 5 mg 11/18 - No end date Unknown of Unknown Unknown of Unknown Unknown of Unknown Unknown of Unknown Unknown of Unknown Unknown of Unknown Unknown of Unknown 0 of Unknown 0 of Unknown oxyCODONE (ROXICODONE) immediate release tablet 5 mg 12/02 - 12/16 -- -- -- -- 0 of 7.5 7.5 of 7.5 7.5 of 7.5 7.5 of 7.5 0 of 7.5 Calculation Errors Order Type Date Details oxyCODONE (ROXICODONE) immediate release tablet 5 mg Ordered Dose -- No morphine equivalence factorfound for OXYCODONE HCL 5 MG PO TABS [[id number]] and route Enteral [125] Administered Dose 11/28/22 No morphine equivalence factor found for OXYCODONE HCL 5 MG PO TABS [[id number]] and route Enteral [125] 11/29/22 No morphine equivalence factor found for OXYCODONE HCL 5 MG PO TABS [[id number]] and route Enteral [125] 11/30/22 No morphine equivalence factor found for OXYCODONE HCL 5 MG PO TABS [[id number]] and route Enteral [125] 12/01/22 No morphine equivalence factor found for OXYCODONE HCL 5 MG PO TABS [[id number]] and route Enteral [125] 12/02/22 No morphine equivalence factor found for OXYCODONE HCL 5 MG PO TABS [[id number]] and route Enteral [125] 12/03/22 No morphine equivalence factor found for OXYCODONE HCL 5 MG PO TABS [[id number]] and route Enteral [125] 12/04/22 No morphine equivalence factor found for OXYCODONE HCL 5 MG PO TABS [[id number]] and route Enteral [125] Nursing Team Conference: Bladder Continent: Continent with accidents Bladder Devices: Puentes catheter Bladder Interventions: Other (comment) Bladder: Describe level of assistance required and any barriers encountered in management: Puentes Catheter non latex Bowel Continent: Continent Bowel Devices: Adult brief Bowel Interventions: Bowel program Pain: Patient denies pain Pain - Functional Impact: None Aggravating Factors Impacting Pain: None Alleviating Factors Impacting Pain: None Pain Education Provided: Patient Non-Pharmacologic Pain Interventions: Other (Comment) Emotional/Spiritual Pain Interventions: Other (Comment) Pain Consults Initiated or Completed: Other (Comment) Opiate Use Anticipated After Discharge: Possible Nutrition Intake: Tube feeds Nutrition Level of Assistance: Total assistance Nutrition Interventions: Other (Comment) Respiratory O2 Delivery System: None Skin Intact: Other (comment) Skin Interventions: Weight shift/Turned respositioned every 2 hours;Specialty bed-mattress Wound Rx: Other (Comment) Safety Status: Follows instructions Safety Interventions: Education Cognitive Orientation: Person;Place;Date Cognitive Deficits Observed: Delayed responses Cognitive: Describe interventions used during past 7 days and response: Flat Affect Quality of Sleep: Restful Approximate Hours Slept: 6-8hrs Patient-Family barriers to learning: Other (comment) Is patient on dialysis?: No PT Weekly Progress Note PT Weekly Progress Note by Kellie Moran PT at 12/04/2022 3:34 PM Author: Kellie Moran PT Service: Therapy Author Type: Container Repairer Filed: 12/04/2022 3:47 PM Date of Service: 12/04/2022 Legal Coordinator: Kellie Moran PT (Container Repairer) Related Notes: Original Note by Kellie Moran PT (Container Repairer) filed at 12/04/2022 3:45 PM PT Weekly Progress Note Patient Name: Consuelo Darby Patient Birthdate: 1980 PT CURRENT FUNCTIONAL STATUS: PT Current Functional Status: PT Current Functional Status: Ms. Darby's functional status as follows: PRECAUTIONS: helmet on when up/moving around. Can be off when stationary in bed. Has g-tube. Free water protocal after oral hygiene. SITTING BALANCE: pt able to static sit at edge of mat with right UE support: min/mod for centered positioning then close stand by. Able to reach within CARMEN with right UE and maintain balance, close stand by assist. Slight reach outside CARMEN right with occassional min. To left of midline- occassionalmin to min/mod for regain balance due to LOB left. With cues able to bring head to midline then track left of midline and maintain sitting balance. BED MOBILITY: Sit to/from supine with max/total assist. Support for left side, positioning. Max of one and at times min/mod of another for trunk/lift assist. Varies with left hip pain. Rolls left with min assist to complete motion, to right with max assist to help left side- completemotion. Painful left hip. *have trialed use of abductor wedge on lateral side of leg leg to assist with positioning, control flexion response and lateral hip rotation- will continue to monitor. TRANSFERS Sit to/from stand with max assist on left to block left leg, lift assist, balance/control push left.. support of right grab bar once up. Stand pivot with max assist of one and min/mod of another. Going right can be max of one and stand by to cga of another, varies. More assist going left due to visual deficits. Wc to/from level mat with use of transfer board: max of one and stand by to min of another. At times assist of second person for hip adjustment once in w/c. At times use of myra-flex stand lift for bed to/from w/c and for toileting. Car transfer: not safe to attempt at this time GAIT: therapeutic ambulation at this time due to level of assist. Not recommended with family at hi. Sling to support left UE. [place] wrap to assist left ankle DF. Knee immobilizer for left knee extension. Pt ambulates in parallel bars: 8-10ft. Max assist of one to advance and block left leg, trunk support, facilitate wt shift right. Min/mod of another for trunk support and occassional assist of left leg. Have trialed use of knee immobilizer on left leg for knee control. Close w/c for safety. Pt has also ambulated 5-10ft with hemiaide on right. Max on left for trunk support/balance, wt shift. Max to advance and block left leg. Mod initially on right of another then min for balance and cane management. Pt with gradual increase in cane advancement. Cues for upright head control and min to position in neutral. Visual target to maintain neutral head and vision during gait training. W/c follow for safety. Not safe to attempt 50, 150ft. Compliant surface: not safe to attempt Retrieval of an object from the ground: not safe to attempt. STAIRS: not safe to attempt 1, 4, 12 steps at this time. WHEELCHAIR MOBILITY Pt in tilt in space w/c to start. Trialed use of contoured back lightwt w/c: propelled with right UE/LE 80ft with turns, mod/max on left for guidance/control of left daryl. Mod/max cues to scan left of midline- hard to maintain left gaze. Total to go 160ft. Pt tolerated upright in lightweight w/c on vicair vector cushion for pressure relief, left half laptray, safety belt applied. OUTCOME MEASURES: AGITATED BEHAVIOR SCALE 15 POSTURAL ASSESSMENT OF STROKE , improved from , 2 on eval. 10 METER WALK TEST not able to attempt at this time PROGRESS: Ms. Darby is making steady progress with therapy. Consult for w/c completed with [facility], recommend light weight w/c with contour back, left half lap tray-adjustable armrests to provide support for left hemiparetic arm, support left shoulder. She is making steady progress with sitting bal ance/tolerance, transfers, scanning ability to left of midline. Barriers are pain in left hip- MD aware, left hemiparesis. She works very hard and will continue to benefit from intensive therapy to maximize functional gains. Factors in Goal Achievement: Facilitating Factors: Patient understanding and knowledge, Support of family or caregiver, Improvedfunctional mobility, Improved balance and Improved function Barriers: Pain, Strength limitations, Motor control deficits, Tone deficits and Other (comment) (left inattention and visual deficits) Date Last Assessed: 12/04/2022 DME Recommendations Common Therapy DME: Hospital Bed, Specialty Mattress, Transfer Board, Manual Lift, Manual Wheelchair (contacted [employer] regarding specialty w/c for home use) Hospital Bed - Type: Semi-Electric Hospital bed Manual Lift: Sling Lift Specialty Mattres - Type: Low Air Loss, Other (comment) (significant immobility with left side, high risk of pressure injuries, requires assist for position changes.) Transfer Board - Type: 24 in without cutout CARE Score Fields: 6: Independent. [place] provides no assistance with tasks. A device may or may not have been used. 5: Set-up or clean-up assistance. [place] sets up or cleans up, but does not assist with tasks. [place] may have assisted prior to or following the activity. 4: Supervision or touching assistance. [place] provides verbal cues or touching/steadying or contactguard assistance. Assistance may be provided throughout the activity or intermittently. 3: Partial/moderate assistance. [place] does less than half the effort. [place] lifts, holds, or supports trunk or limbs, but provides less than half the effort. 2: Substantial/maximal assistance. [place] does more than half the effort. [place] lifts or holds trunk or limbs, and provides more than half the effort. 1: Dependent. [place] does all of the effort, or the assistance of two or more helpers is required for the patient to complete the activity. -: Inconsistent or incomplete documentation Activity not attempted values: 7: Patient refused 9: Not applicable - Not attempted and the patient did not perform this activity prior to the current illness, exacerbation, or injury. 10: Not attempted due to environmental limitations (e.g., lack of equipment, weather constraints) 88: Not attempted due to medical condition or safety concerns Ranch Helper Goals: Goal Status on Admission Current Status Car Transfer LTG: Partial/moderate assistance (Patient will complete car transfer with moderate assist to be able to transport in a personal vehicle.) Car Transfer - CARE Score: 88 (11/18/22 1006 : Roxanne Goldberg, PT) Car Transfer - CARE Score: 88 (12/04/22 154) Walk 10 Feet - CARE Score: 88 (11/18/22 1006 : Roxanne Goldberg, PT) Walk 10 Feet - CARE Score: 1 (12/04/22 154) Walk 50 Feet with Two Turns - CARE Score: 88 (11/18/22 1006 : Roxanne Goldberg PT) Walk 50 Feet with Two Turns - CARE Score: 88 (12/04/221540) Walk 150 Feet - CARE Score: 88 (11/18/22 1006 : Roxanne Goldberg PT) Walk 150 Feet - CARE Score: 88(12/04/221540) Walking 10 Feet on Uneven Surfaces - CARE Score: 88 (11/18/22 1006 : Roxanne Goldberg PT) Walking 10 Feet on Uneven Surfaces - CARE Score: 88 (12/04/221540) 1 Step (Curb) - CARE Score: 88 (11/18/22 1006 : Roxanne Goldberg PT) 1 Step (Curb) - CARE Score: 88(12/04/221540) 4 Steps - CARE Score: 88 (11/18/22 1006 : Roxanne Goldberg PT) 4 Steps - CARE Score: 88 (12/04/221540) 12 Steps - CARE Score: 88 (11/18/22 1006 : Roxanne Goldberg PT) 12 Steps - CARE Score: 88 () Picking Up Object - CARE Score: 88 (11/18/22 1006 : Roxanne Goldberg PT) Picking Up Object - CARE Score: 88 (12/04/221540) Wheel 50 Feet with Two Turns LTG: Supervision or touching assistance (Patient will be able to wheel50 ft including navigating the environment with touching assistance.) Wheel 50 Feet with Two Turns - CARE Score: 88 (11/18/22 1006 : Roxanne Goldberg PT) Wheel 50 Feet with Two Turns - CARE Score: 2 (12/04/221540) Wheel 150 Feet - CARE Score: 88 (11/18/22 1006 : Roxanne Goldberg PT) Wheel 150 Feet - CARE Score: 2 (12/04/221540) Additional Goals & Status: N/A PT Other Ranch Helper Goals Flowsheet Row Most Recent Value Other PT Ranch Helper Goals Other Goals - Ranch Helper Mcfp 1, Mcfp 2 Filed on: 11/18/2022 1059 Other Mcfp Goal 1 Patient will complete transfers with moderate assist of one person. Filed on: 11/18/2022 1057 Other Ranch Helper Goal 1 Status Established Filed on: 11/18/2022 105 Other Mcfp Goal 2 Patient will complete bed mobility including rolling and supine<> sit transitions with minimal assistance. Filed on: 11/18/2022 1057 Other Mcfp Goal 2 Status Established Filed on: 11/18/2022 1057 Expected Achievement Date 12/15/22 Filed on: 11/18/2022 1057 PT Short Term Goal 1: Focus: Other Details: Patient will be able to tolerate being out of bed and seated in her wheelchair for increased engagement within therapy session. Expected Achievement Date: 11/25/2022 Goal Status: Achieved PT Short Term Goal 2: Focus: Other (Bed mobility) Level of Assistance to Meet Short Term Goal: Physical assistance 75% or more Details: Patient will complete rolling in bed with maximal assist of one. Expected Achievement Date: 12/04/2022 Status: Achieved PT Short Term Goal 3: Level of Assistance to Meet Short Term Goal: Total assistance Details: Patient will be able to complete sit <> supine transitions with two person moderate assist. Expected Achievement Date: 12/11/2022 Status: Partially Achieved PT Short Term Goal 4: Details: Pt w/c to mat with stand pivot and max assist of one. Expected Achievement Date: 12/11/2022 Goal Status: Partially Achieved Duration Expiration Date: 12/17/2022 KELLIE MORAN, PT 12/04/2022 CHART CORRECTION: Type of Chart Edit: Addendum Reason for Correction: Additional information added (added sitting balance info) Name: Kellie Reardonadwoa, PT Date: 12/04/2022 Time: 15:47 CDT OT Weekly Progress Note OT Weekly Progress Note by Bridgett Evangelista OT at 12/04/2022 4:28 PM Author: Bridgett Evangelista OT Service: -- Author Type: Occupational Therapist Filed: 12/04/2022 4:30 PM Date of Service: 12/04/2022 Legal Coordinator: Bridgett Evangelista OT (Occupational Therapist) Occupational Therapy Weekly Progress Note Patient Name: Consuelo Darby Patient Birthdate: 1980 OT Current Functional Status: Ms. Darby's current status is as follows (per documentation and observation): EATING: with supervision, on water protocal ORAL HYGIENE: with supervision from w/c level. TOILETING: with dependence, requires assist of 2 to complete (one person to assist with standing and another person to assist with clothing management and hygiene) SHOWER/BATHING: with maximal assistance (less than 76%) per nursing report UPPER BODY DRESSING: with dependence per nursing report. LOWER BODY DRESSING: with dependence with all aspects FOOTWEAR: with moderate assistance sitting on edge of mat, assist needet for tying shoes and for cross left LE over right, assit for donning left shoe. Able to cross right LE over left without assistance to salvatore/doff footwear. ROLL LEFT/RIGHT: with maximal assistance to roll toward right and minimal assistance to roll left per PT report SIT TO LYING: with dependence with assist of 2 people for safety. LYING TO SITTING: with dependece with assist of 2 people for safety SIT TO STAND: with maximal assist of one BED TO CHAIR TRANSFER: with dependence using sliding board with assist of 2 for safety TOILET TRANSFER: with dependence with use of sliding board to drop arm commode with assist of 2 forsafety. Ms. Darby transferred to towards right side. Ms. Darby presents with no active movement in left UE with increased tone noted in left shoulder and slight tone noted in left digits. She requires cues to attend to left side of body and environment. She currently is using prism lenses on glasses for vision. Ms. Darby has made good progress towards eating, oral hygiene, transfers, and sitting balance. However, she continues to be limited in these areas as well as selfcare, left UE function, cognition, visual perception, and endurance and wouldbenefit from continued OT services to work on maximizing functional independence. Facilitating Factors in Goal Achievement: Patient understanding and knowledge, Patient compliance, Patient motivation, Support of family or caregiver, Use of compensatory strategies, Improved functional mobility, Improved balance and Improved function Barriers to Goal Achievement: Pain, ROM limitations, Strength limitations, Motor control deficits, Balance deficits, Diminished endurance, Tone deficits, Impaired skin integrity, Cognitive deficits, Decreased safety awareness and Visual deficits Date Last Assessed: 12/04/2022 Patient needs assistance with the following activities: Activities of daily living, Vision, Going out in the community, Use of bathroom equipment, Memory, Positioning, Rolling, Sitting balance and Reaching Will patient require a prosthetic or orthotic device upon discharge: No DME Recommendations Common Therapy DME: Commodes Commode - Type: Drop Arm Commode (patient is unable to access restroom; currently she is using a lift to transfer on and off of BSC, but she may progress to lateral transfers with sliding board in the future.) CARE Score Fields: 6: Independent. [place] provides no assistance with tasks. A device may or may not have been used. 5: Set-up or clean-up assistance. [place] sets up or cleans up, but does not assist with tasks. [place] may have assisted prior to or following the activity. 4: Supervision or touching assistance. [place] provides verbal cues or touching/steadying or contactguard assistance. Assistance may be provided throughout the activity or intermittently. 3: Partial/moderate assistance. [place] does less than half the effort. [place] lifts, holds, or supports trunk or limbs, but provides less than half the effort. 2: Substantial/maximal assistance. [place] does more than half the effort. [place] lifts or holds trunk or limbs, and provides more than half the effort. 1: Dependent. [place] does all of the effort, or the assistance of two or more helpers is required for the patient to complete the activity. -: Inconsistent or incomplete documentation Activity not attempted values: 7: Patient refused 9: Not applicable - Not attempted and the patient did not perform this activity prior to the current illness, exacerbation, or injury. 10: Not attempted due to environmental limitations (e.g., lack of equipment, weather constraints) 88: Not attempted due to medical condition or safety concerns Mcfp Goals: Goal Status on Admission Current Status Eating LTG: Supervision or touching assistance Eating - CARE Score: 88 (11/18/22 1252 : Roland Eubanks OT) Eating - CARE Score: 4 (12/04/221622) Oral Hygiene LTG: Supervision or touching assistance Oral Hygiene - CARE Score: 2 (11/18/22 1252 : Roland Avendano OT) Oral Hygiene - CARE Score: 4 (12/04/22 162) Toileting Hygiene LTG: Partial/moderate assistance Toileting Hygiene - CARE Score: 1 (11/18/22 1252: Roland Avendano OT) Toileting Hygiene - CARE Score: 1 (12/04/221622) Shower/Bathe Self LTG: Partial/moderate assistance Shower/Bathe Self - CARE Score: 1 (11/18/22 1252: Roland Avendano OT) Shower/Bathe Self - CARE Score: 1 (12/04/221622) Upper Body Dressing LTG: Partial/moderate assistance Upper Body Dressing - CARE Score: 1 (11/18/22 1252 : Roland Avendano OT) Upper Body Dressing - CARE Score: 1 (12/04/221622) Lower Body Dressing LTG: Partial/moderate assistance Lower Body Dressing - CARE Score: 1 (11/18/22 1252 : Roland Avendano OT) Lower Body Dressing - CARE Score: 1 (12/04/221622) Putting On/Taking Off Footwear LTG: Partial/moderate assistance Putting On/Taking Off Footwear - CARE Score: 1 (11/18/22 1252 : Roland Avendano OT) Putting On/Taking Off Footwear - CARE Score: 3 (12/04/221622) Roll Left and Right - CARE Score: 1 (11/18/22 1252 : Roland Avendano OT) Roll Left and Right - CARE Score: 2 (12/04/221622) Sit to Lying - CARE Score: 88 (11/18/22 1252 : Roland Avendano OT) Sit to Lying - CARE Score:1 (12/04/221622) Lying to Sitting on Side of Bed - CARE Score: 88 (11/18/22 1252 : Roland Avendano OT) Lying to Sitting on Side of Bed - CARE Score: 1 (12/04/221622) Sit to Stand - CARE Score: 88 (11/18/22 1252 : Roland Avendano OT) Sit to Stand - CARE Score:2 (12/04/221622) Chair/Efj-xw-Mvwzz Transfer LTG: Partial/moderate assistance Chair/Rva-iv-Pnpjq Transfer - CARE Score: 1 (11/18/22 1252 : Roland Avendano OT) Chair/Ryo-ju-Pyqnp Transfer - CARE Score: 1 (12/04/221622) Toilet Transfer LTG: Partial/moderate assistance Toilet Transfer - CARE Score: 88 (11/18/22 1252 : Roland Avendano, OT) Toilet Transfer - CARE Score: 1 (12/04/221622) Additional Goals & Status: N/A OT Short Term Goal 1: Focus: Toileting Hygiene Level of Assistance to Meet Short Term Goal: Physical assistance 50%-74% Expected Achievement Date: 12/11/2022 Goal Status: Not Achieved OT Short Term Goal 2: Focus: Shower/Bathe Level of Assistance to Meet Short Term Goal: Physical assistance 50%-74% Expected Achievement Date: 12/11/2022 Goal Status: Not Achieved OT Short Term Goal 3: Focus: Upper Body Dressing Level of Assistance to Meet Short Term Goal: Physical assistance 50%-74% Expected Achievement Date: 12/11/2022 Goal Status: Not Achieved OT Short Term Goal 4: Focus: Lower Body Dressing Level of Assistance to Meet Short Term Goal: Physical assistance 50%-74% Expected Achievement Date: 12/11/2022 Goal Status: Not Achieved OT Short Term Goal 5: Focus: Chair/Bed Transfer Level of Assistance to Meet Short Term Goal: Physical assistance 50%-74% Expected Achievement Date: 12/11/2022 Goal Status: Not Achieved OT Short Term Goal 6: Focus: Toilet Transfer Level of Assistance to Meet Short Term Goal: Physical assistance 50%-74% Expected Achievement Date: 12/11/2022 Goal Status: Not Achieved Duration Expiration Date: 12/14/2022 BRIDGETT EVANGELISTA OT 12/04/2022 [employer] Weekly Progress Note [employer] Weekly Progress Note by ST Mehdi at 12/04/2022 4:54 PM Author: ST Mehdi Service: Therapy Author Type: Speech and Language Pathologist Filed: 12/04/2022 5:12 PM Date of Service: 12/04/2022 Legal Coordinator: ST Mehdi (Speech and Language Pathologist) Speech Language Pathologist Weekly Progress Note Patient Name: Consuelo Darby Patient Birthdate: 1980 [employer] Current Functional Status: Ms. Darby is a 42 year-old female referred to speech therapy for evaluation and treatment followingrecent hospitalization with a diagnosis of stroke. Past medical history is significant for abdominal pain right upper quadrant, hemiplegic migraine, GERD, HTN. Prior to referral for a rehabilitation a dmission, patient did not require assistance for household ambulation, community level ambulation or self-care activities. 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 Ms. Darby's current functional status is as follows: SWALLOWING: MBS was completed on 11/27/22 with results as follows: Swallow initiation was timely with only trace pharyngeal residue observed. Aspiration noted with thin liquids taken both via teaspoon and via cup. Immediate cough followed. No laryngeal penetration nor aspiration were observed with any other consistency. Patient presented with reduced mastication of the solid texture (cracker) due to left facial weakness. Solid pieces of the bolus remained unchewed. TREATMENT RECOMMENDATIONS-- 1. Begin PUREED texture diet (IDDSI 4) 2. Begin MILDLY THICK/NECTAR LIQUIDS (IDDSI 2) 3. Medications crushed in puree 4. May have ice chips 1-2 at a time as requested. Patient may have ice chips without direct supervision; remove melted ice from the room. 5. Upright for all PO intake 6. Slow rate during meals; Small bites/sips 7. Assist with set-up of tray. Monitor with meals and assist as needed. 8. Oral care following meals The SM Water Protocol was initiated on 11/30/22. COMPREHENSION: SUPERVISION. Patient is able to comprehend information regarding basic needs over 90% of the time. Increased difficulty noted with complex or abstract information. Patient presents with left visual visual impairment. EXPRESSION: SUPERVISION. Patient is able to express information regarding basic needs over 90% of the time. Speech is 100% intelligible. SOCIAL INTERACTION: MODIFIED INDEPENDENT. Patient interacts appropriately most of the time. She presents with flat affect and reduced initiation. She presents with left side visual impairment which affects social interactions. PROBLEM SOLVING: MINIMAL ASSISTANCE. Patient solves routine problems at least 75% of the time. The Cognitive Linguistic Quick Test is in progress; however, the assessment is difficult for the patientto complete due to significant left visual impairment. MEMORY: MINIMAL ASSISTANCE. Patient is able to recognize and remember people, routines, and requests at least 75% of the time. The Cognitive Linguistic Quick Test is in progress; however, the assessment is difficult for the patient to complete due to significant left visual impairment. PROGRESS 11/20/22: Evaluation was completed on 11/18/22. All goals remain appropriate at this time dueto limited number of sessions thus far. PROGRESS 11/27/22: Ms. Darby has made significant improvement this week in therapy. A MBS was completed and recommendation made to begin a PO diet of Pureed food items with Mildly Thick Liquids. Patient's speech intelligibility has improved so that she is fully intelligible. Improvement noted in functional problem-solving skills for routine daily tasks. She is able to remember familiar people and events at least 75% of the time. Overall endurance and participation in therapy tasks is improved. PROGRESS 12/04/22: Ms. Darby is seen for speech therapy 45 minutes daily for swallowing, communication and cognitive interventions to improve patient's swallowing safety and functional communication and cognitive abilities. She continues to make good progress in therapy. She is managing a pureed texture diet with mildly thick/nectar liquids. The SM Water Protocol was initiated on 11/30 and patient is tolerating with no difficulty reported. She participated in Neuromuscular Electrical Stimulation (PENS) 3x per week. A follow-up MBS is planned for this week. Patient's participation in therapy tasks is improved. Patient presents with left visual impairment, which limits her ability to perform written activities and to complete a formal cognitive assessment. The Cognitive Linguistic Quick Test is in progress. Patient participated in discussion of stroke risk factors and prevention. RECOMMENDATIONS: Ms. Darby will benefit from continued speech therapy services to address the following plan of care: compensatory strategy training; interventions to improve swallowing function to manage least restrictive diet and liquid textures; cognitive and communicative retraining to increased safety and independence upon discharge; and patient/family training and education. Consuelo Darby: [X ]is able to state 2 risk factors without VCs prior to discharge [ ]requires cues to recall 2 stroke risk factors [ ] Is unable to state stroke risk factors due to communication or cognitive deficits; Education not yet completed. Facilitating Factors in Goal Achievement: Patient compliance, Patient understanding and knowledge, Progress to date, Improvement in swallow function, Improvement in cognitive skills, Improvement in communication skills and Support of other(s) Barriers to Goal Achievement: Communication deficits and Other (comment) (cognition; dysphagia) Date Last Assessed: 12/04/2022 Ranch Helper Goals: Goal Status on Evaluation Current Progress Towards Goal Level of Assistance to Meet Auditory Comprehension: Standby (less than 10%) Auditory Comprehension Details: Demonstrate auditory comprehension of complex questions, directions, and conversation to meet needs, complete tasks and interact socially with others within functionalliving environments Auditory Comprehension Expected Achievement Date: 12/02/22 Minimal assistance Achieved at supervision Level of Assistance to Meet Memory: Standby (less than 10%) Memory Details: Demonstrate functional memory skills for recall of information relating to people, routines, overall health, and safety within functional living environments Memory Expected Achievement Date: 12/02/22 Minimal assistance Continue to address Level of Assistance to Meet Motor Speech: Min assist (10-24%) Motor Speech Details: Demonstrate functional speech intelligibility in multiple environments through self monitoring and implementation of newly learned strategies and exercises Motor Speech Expected Achievement Date: 12/02/22 Moderate assistance Goal achieved at supervision Level of Assistance to Meet Swallowing: Standby (less than 10%) Swallowing Details: Safely consume a regular diet with all liquids with no overt signs or symptoms of aspiration or post swallow distress Swallowing Expected Achievement Date: 12/02/22 NPO liquids and solids Pureed with Mildly thick liquids; SM Water Protocol Additional Goal Status: N/A [employer] Short Term Goals: Auditory Comprehension: Level of Assistance to Meet Auditory Comprehension: Standby (less than 10%) Details: Answer complex yes/no questions with 90% acc Expected Achievement Date: 12/04/2022 Goal Status: Achieved Memory: Level of Assistance to Meet Memory: Min assist (10-24%) Details: Recall 3-4 events from PT and OT sessions Expected Achievement Date: 12/04/2022 Goal Status: Achieved Additional Cognition: Level of Assistance to Meet Additional Cognition: Min assist (10-24%) Details: Complete visual attention tasks with 80% acc Expected Achievement Date: 12/11/2022 Goal Status: Not Achieved Motor Speech: Level of Assistance to Meet Motor Speech: Mod assist (25-49%) Details: Increase maximum phonation time to 10 seconds Expected Achievement Date: 12/11/2022 Goal Status: Partially Achieved Swallowing: Level of Assistance to Meet Swallowing: Standby (less than 10%) Details: Improve OHAT score to zero, initiate SMWP as appropriate Expected Achievement Date: 12/04/2022 Goal Status: Achieved Other STG 1: Focus: Motor Speech Level of Assistance to Meet Other STG 1: Independent Details: State three speech intelligibility strategies Expected Achievement Date: 11/27/2022 Goal Status: Achieved Other STG 2: Focus: Motor Speech Level of Assistance to Meet Other STG 2: Min assist (10-24%) Details: Demonstrate use of strategies at the phrase level Expected Achievement Date: 11/27/2022 Goal Status: Achieved Other STG 3: Focus: Swallowing Level of Assistance to Meet Other STG 3: Standby (less than 10%) Details: Tolerate PO trials ice chips, thickened liquids with <10% overt clinical signs/symptomsaspiration or post-swallow distress Expected Achievement Date: 11/27/2022 Goal Status: Achieved Other STG 4: Focus: Swallowing Details: Safely manage current diet (IDDSI 4/2) and trials of upgraded solids as appropriate with no clinical signs of dysphagia. Expected Achievement Date: 12/11/2022 Goal Status: Partially Achieved Other STG 5: Focus: Swallowing Details: Perform swallowing exercises following a model with minimal assistance. Expected Achievement Date: 12/11/2022 Goal Status: Not Achieved Duration Expiration Date: 12/15/[address] 12/04/2022 Respiratory Team Conference: Nutrition Team Conference: Dietary Orders (From admission, onward) Start Ordered 12/04/22 1027 Jevity 1.5; Tube Feeding Bolus (mL): 240; Tube Feeding Bolus frequency: if po intake < 50% meals; Tube Feeding water flush (mL): 150; Water flush frequency: Every 4 hours Diet effective now Comments: Increase free water flush to 150 mL every 4 hours End/Expires: Until Specified Question Answer Comment Tube Feeding Formula: Jevity 1.5 Tube Feeding Bolus (mL): 240 Tube Feeding Bolus frequency: if po intake < 50% meals Tube Feeding water flush (mL): 150 Water flush frequency: Every [address] order in third green party system. Done 12/04/22 1027 11/29/22 1700 Nutritional supplement Magic Cup; Oral 3 times daily with meals Comments: Send chocolate Thrive TID End/Expires: Until Specified Question Answer Comment Select Supplement: Magic Cup Administration Route: Oral Place order in third green party system. Done 11/29/22 1250 11/27/22 1516 Adult Diet Regular; 4 Pureed (NDD I); 2 Mildly Thick ([employer]) Diet effective now End/Expires: Until Specified References: IDDSI Website Question Answer Comment Diet Type: Regular Diet Texture: 4 Pureed (NDD I) Liquid Consistency: 2 Mildly Thick ([employer]) Place order in third green party system. Done 11/27/22 1515 Height: 5' 4 (162.6 cm) Admit Weight: 198 lb (89.8 kg) Current Weight: 189 lb (85.7 kg) Body mass index is 32.44 kg/m??. Calorie Count: Plan of Care - Nutrition Care Plans 1 Author: Roland Mas RD Service: -- Author Type: Registered Dietitian Filed: 11/29/2022 12:42 PM Date of Service: 11/29/2022 12:42 PM Status: Signed Legal Coordinator: Roland Mas RD (Registered Dietitian) Problem: Inadequate Oral Intake Description: Oral food/beverage intake that is less than established reference standards or recommendations based on physiological needs. Related to: dysphagia As evidenced by: need for TF to meet nutritional needs. Goal: Maintain Nutritional Status Outcome: Progressing Flowsheets (Taken 11/29/2022 1241) Meals and Snacks: (pureed with mildly thick liquids) Texture modified diet Enteral and Parenteral Nutrition: (240 mL Jevity 1.5 if po < 50% meals.) -- Medical Food Supplement Therapy: (chocolate Thrive TID) Commercial beverage/Oral nutrition supplement 1 Author: Roland Mas RD Service: -- Author Type: Registered Dietitian Filed: 12/04/2022 10:19 AM Date of Service: 12/04/2022 10:18 AM Status: Signed Legal Coordinator: Roland Mas RD (Registered Dietitian) Problem: Swallowing Difficulty Description: Impaired or difficult movement of food and liquid within the oral cavity to the stomach. Related to: Motor causes, e.g., neurological or muscular disorders, such as cerebral palsy, stroke,multiple sclerosis, scleroderma; or prematurity, altered suck, swallow, breathe patterns, encephalopathy As evidenced by: modified consistency diet. Goal: Improve Nutritional Status Outcome: Progressing Flowsheets (Taken 12/04/2022 1018) Meals and Snacks: (pureed diet with mildly thick liquids) Texture modified diet Enteral and Parenteral Nutrition: (bolus 240 mL Jev 1.5 if po < 50% intake) Enteral nutrition Medical Food Supplement Therapy: (chocolate Thrive TID) Commercial beverage/Oral nutrition supplement Wound: Wound Rx: Other (Comment) Cosigned by Yamileth Frias MD at 12/05/2022 1:32 PM CDT Associated attestation - Yamileth Frias MD - 12/05/2022 2:32 PM EDT A team conference was held on 12/05/2022 and included members of the multidisciplinary team identified in the attendance section of this note. Issues related to Ms. Darby's status include; Patient Active Problem List Diagnosis Cerebrovascular accident Hypertension Ms. Parkers progress toward rehabilitation goals, impediments to attaining these goals, and associated revisions to the treatment plans and goals were discussed by the team. Details of this multidisciplinary process are included below. Issues of particular significance at this time regarding Ms. Parkers progress towards rehabilitation goals and treatment plan include: Discussed about functional gains , discharge planning ,DME , follow up therapies and current medical condition during team conference . As discussed during this team conference, I concur with the decisions set forth by the members of the multidisciplinary team. Ms. Darby continues to require frequent physician visits and 24 hours perday acute rehabilitation nursing care in order to meet medical needs and progress toward the achievement of the rehabilitation goals. YAMILETH FRIAS MD 12/05/2022 1:32 PM CDT * OT Treatment Note - Bridgett Evangelista, OT - 12/05/2022 8:15 AM CDT Occupational Therapy Treatment Patient Name: Consuelo Darby Patient Birthdate: 1980 Patient Subjective Report - my hip hurts so bad. I am so tired of being in pain. Pain Assessment Pain Context: Therapy Assessment During Treatment (12/05/22817) Pain Assessment: NRS 0-10 (12/05/22817) Pain Score: 4 - Moderate Pain (12/05/22817) Pain Severity - NRS (Calculated): Moderate (12/05/22817) Pain Location: Hip (12/05/22817) Pain Orientation: Left (12/05/22817) Pain Descriptors: Stabbing, Radiating (12/05/22817) Pain Onset: Ongoing (12/05/22817) Pain Frequency: Constant/continuous (12/05/22817) Aggravating Factors: Activity Duration, Positioning (12/05/22817) Pre-therapy pain intervention required: Patient expressed pain is tolerable/able to proceed, Other (Comment) (declined for therapy to contact nursing regarding pain issue) (12/05/22817) Pain Interventions Education Provided: Patient (12/05/22817) Non-Pharmacologic Pain Interventions: Distractions, Exercise/Activity, Rest, Shower, Position/Reposition (12/05/22817) Emotional/Spiritual Pain Interventions: Emotional Support (12/05/22817) ADL Training: ADL Training Narrative: EATING: with ORAL HYGIENE: with supervision from w/c level TOILETING: with dependence SHOWER/BATHING: with dependence with shower sitting in tilt in space roll in shower chair. Ms. Darby was able to assist with washing face, upper chest, part of abdomen. She required assistance with remaining bathing tasks while sitting shower chair. She required assistance of 2 for drying glenis areaand buttocks due to requiring one person to stand Ms. Darby with maximal assistance and another to dry. UPPER BODY DRESSING: with dependence for doffing/donning bra and pullover shirt. LOWER BODY DRESSING: with dependence for unthreading/threading clothing over feet, assist of one person to stand Ms. Darby while another person pulls clothing over hips. FOOTWEAR: with dependence with all aspects Transfer Training: Transfer Narrative: ROLL LEFT/RIGHT: with maximal assistance rolling to right on low air loss mattress SIT TO LYING: with LYING TO SITTING: with dependence (maximal assistance of one, plus moderate assistance of another) on low air loss mattress. Ms. Darby c/o left hip pain during movement SIT TO STAND: with dependence (maximal assistance of one with left LE supported and moderate assistof another posteriorly) and cues for positioning and safety. BED TO CHAIR TRANSFER: with dependence this date using myra flex lift to tilt in space roll in shower chair. SHOWER CHAIR: with dependence using myra lift to tilt in space shower chair. OT Therapeutic Activity: Therapeutic Activity: Ms. Darby required min/mod assistance with sitting balance on EOB of low air loss mattress this am. She required moderate assistance with sitting balance when sitting upright inroll in shower chair. Endurance: Frequent rest breaks with shower and dressing tasks. Frequent c/o left hip pain. Cognition: Decreased attention to task, safety, problem solving, memory. Visual Perceptual: Cues to attend to left side during shower and dressing tasks. Treatment, Outcomes and Plan: OT Narrative:: Ms. Darby tolerated tx with frequent rest breaks with shower and dressing tasks. Shedemonstrated progress this date with being able to participate with shower. However, she requires increased assist with selfcare and transfers this date due to having to transfer to tilt in space roll in shower chair as well as fatigue from shower and pain in left hip. Ms. Darby demonstrated progress towards sitting balance for shower this date. Ms. Darby would benefit from continued OT services to work on maximizing functional independence. OT Treatment Outcomes:: Safety device reapplied, Patient tolerated treatment fairly, Patient is progressing toward STG(s), Goals met for this session, Cues needed for safety, Improved ability to perform functional transfers, Improved balance and coordination and Improved ability to tolerate 90 min.therapy session OT Summary Plan of Care: Continue with current plan of care Pain Evaluation and Follow-up Response to Therapy Interventions: Other (comment) (no significant difference) (12/05/22944) Pain Reassessment: 8 (when moving left leg) (12/05/22944) Nursing notified of patient's pain assessment: Primary Nurse (12/05/22944) Therapy Minutes Individual Concurrent Co-Treat Individual (OT) Time In : 814 Time Out: 944 Total Time with Patient (Min): 90 min BRIDGETT EVANGELISTA OT 12/05/2022 * Non-treatment Therapy Note - Roberto Lee OT - 12/05/2022 7:26 AM CDT Prior to team conference, the Primary Therapist Bridgett Evangelista OT and I have communicated regarding current patient status, progress towards goals, and modifications to plan of care, as appropriate. BELGICA, ROBERTO L., OT * Plan of Care - Tia Hernandez RN - 12/04/2022 11:38 PM CDT Problem: Fall Safety: [place] Precautions Goal: Free from fall injury Outcome: Progressing Flowsheets (Taken 12/04/2022 9728) Free from fall injury: Perform fall risk assessment and identifiers in place (as applicable) Frequent rounding/monitoring Lighting appropriate Put call light within reach and teach how to call for assistance, respond to call light immediately Use of bed/chair alarm Bed low, locked 2 side rails Offer frequent toileting Toilet magnet in place (IR Only) Encourage patient to wear glasses and hearing aids and to use walking aids when ambulating, non skid socks Safe mobility and activity (this could include chair safety) Assess for environmental or other risks Fall/safety education for patient/family/SO MAR review * [employer] Weekly Progress Note - [facility] - 12/04/2022 4:54 PM CDT Speech Language Pathologist Weekly Progress Note Patient Name: Consuelo Darby Patient Birthdate: 1980 [employer] Current Functional Status: Ms. Darby is a 42 year-old female referred to speech therapy for evaluation and treatment followingrecent hospitalization with a diagnosis of stroke. Past medical history is significant for abdominal pain right upper quadrant, hemiplegic migraine, GERD, HTN. Prior to referral for a rehabilitation a dmission, patient did not require assistance for household ambulation, community level ambulation or self-care activities. 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 Ms. Darby's current functional status is as follows: SWALLOWING: MBS was completed on 11/27/22 with results as follows: Swallow initiation was timely with only trace pharyngeal residue observed. Aspiration noted with thin liquids taken both via teaspoon and via cup. Immediate cough followed. No laryngeal penetration nor aspiration were observed with any other consistency. Patient presented with reduced mastication of the solid texture (cracker) due to left facial weakness. Solid pieces of the bolus remained unchewed. TREATMENT RECOMMENDATIONS-- 1. Begin PUREED texture diet (IDDSI 4) 2. Begin MILDLY THICK/NECTAR LIQUIDS (IDDSI 2) 3. Medications crushed in puree 4. May have ice chips 1-2 at a time as requested. Patient may have ice chips without direct supervision; remove melted ice from the room. 5. Upright for all PO intake 6. Slow rate during meals; Small bites/sips 7. Assist with set-up of tray. Monitor with meals and assist as needed. 8. Oral care following meals The SM Water Protocol was initiated on 11/30/22. COMPREHENSION: SUPERVISION. Patient is able to comprehend information regarding basic needs over 90% of the time. Increased difficulty noted with complex or abstract information. Patient presents with left visual visual impairment. EXPRESSION: SUPERVISION. Patient is able to express information regarding basic needs over 90% of the time. Speech is 100% intelligible. SOCIAL INTERACTION: MODIFIED INDEPENDENT. Patient interacts appropriately most of the time. She presents with flat affect and reduced initiation. She presents with left side visual impairment which affects social interactions. PROBLEM SOLVING: MINIMAL ASSISTANCE. Patient solves routine problems at least 75% of the time. The Cognitive Linguistic Quick Test is in progress; however, the assessment is difficult for the patientto complete due to significant left visual impairment. MEMORY: MINIMAL ASSISTANCE. Patient is able to recognize and remember people, routines, and requests at least 75% of the time. The Cognitive Linguistic Quick Test is in progress; however, the assessment is difficult for the patient to complete due to significant left visual impairment. PROGRESS 11/20/22: Evaluation was completed on 11/18/22. All goals remain appropriate at this time dueto limited number of sessions thus far. PROGRESS 11/27/22: Ms. Darby has made significant improvement this week in therapy. A MBS was completed and recommendation made to begin a PO diet of Pureed food items with Mildly Thick Liquids. Patient's speech intelligibility has improved so that she is fully intelligible. Improvement noted in functional problem-solving skills for routine daily tasks. She is able to remember familiar people and events at least 75% of the time. Overall endurance and participation in therapy tasks is improved. PROGRESS 12/04/22: Ms. Darby is seen for speech therapy 45 minutes daily for swallowing, communication and cognitive interventions to improve patient's swallowing safety and functional communication and cognitive abilities. She continues to make good progress in therapy. She is managing a pureed texture diet with mildly thick/nectar liquids. The SM Water Protocol was initiated on 11/30 and patient is tolerating with no difficulty reported. She participated in Neuromuscular Electrical Stimulation (PENS) 3x per week. A follow-up MBS is planned for this week. Patient's participation in therapy tasks is improved. Patient presents with left visual impairment, which limits her ability to perform written activities and to complete a formal cognitive assessment. The Cognitive Linguistic Quick Test is in progress. Patient participated in discussion of stroke risk factors and prevention. RECOMMENDATIONS: Ms. Darby will benefit from continued speech therapy services to address the following plan of care: compensatory strategy training; interventions to improve swallowing function to manage least restrictive diet and liquid textures; cognitive and communicative retraining to increased safety and independence upon discharge; and patient/family training and education. Consuelo Darby: [X ]is able to state 2 risk factors without VCs prior to discharge [ ]requires cues to recall 2 stroke risk factors [ ] Is unable to state stroke risk factors due to communication or cognitive deficits; Education not yet completed. Facilitating Factors in Goal Achievement: Patient compliance, Patient understanding and knowledge, Progress to date, Improvement in swallow function, Improvement in cognitive skills, Improvement in communication skills and Support of other(s) Barriers to Goal Achievement: Communication deficits and Other (comment) (cognition; dysphagia) Date Last Assessed: 12/04/2022 [place] Goals: Goal Status on Evaluation Current Progress Towards Goal Level of Assistance to Meet Auditory Comprehension: Standby (less than 10%) Auditory Comprehension Details: Demonstrate auditory comprehension of complex questions, directions, and conversation to meet needs, complete tasks and interact socially with others within functionalliving environments Auditory Comprehension Expected Achievement Date: 12/02/22 Minimal assistance Achieved at supervision Level of Assistance to Meet Memory: Standby (less than 10%) Memory Details: Demonstrate functional memory skills for recall of information relating to people, routines, overall health, and safety within functional living environments Memory Expected Achievement Date: 12/02/22 Minimal assistance Continue to address Level of Assistance to Meet Motor Speech: Min assist (10-24%) Motor Speech Details: Demonstrate functional speech intelligibility in multiple environments through self monitoring and implementation of newly learned strategies and exercises Motor Speech Expected Achievement Date: 12/02/22 Moderate assistance Goal achieved at supervision Level of Assistance to Meet Swallowing: Standby (less than 10%) Swallowing Details: Safely consume a regular diet with all liquids with no overt signs or symptoms of aspiration or post swallow distress Swallowing Expected Achievement Date: 12/02/22 NPO liquids and solids Pureed with Mildly thick liquids; SM Water Protocol Additional Goal Status: N/A [employer] Short Term Goals: Auditory Comprehension: Level of Assistance to Meet Auditory Comprehension: Standby (less than 10%) Details: Answer complex yes/no questions with 90% acc Expected Achievement Date: 12/04/2022 Goal Status: Achieved Memory: Level of Assistance to Meet Memory: Min assist (10-24%) Details: Recall 3-4 events from PT and OT sessions Expected Achievement Date: 12/04/2022 Goal Status: Achieved Additional Cognition: Level of Assistance to Meet Additional Cognition: Min assist (10-24%) Details: Complete visual attention tasks with 80% acc Expected Achievement Date: 12/11/2022 Goal Status: Not Achieved Motor Speech: Level of Assistance to Meet Motor Speech: Mod assist (25-49%) Details: Increase maximum phonation time to 10 seconds Expected Achievement Date: 12/11/2022 Goal Status: Partially Achieved Swallowing: Level of Assistance to Meet Swallowing: Standby (less than 10%) Details: Improve OHAT score to zero, initiate SMWP as appropriate Expected Achievement Date: 12/04/2022 Goal Status: Achieved Other STG 1: Focus: Motor Speech Level of Assistance to Meet Other STG 1: Independent Details: State three speech intelligibility strategies Expected Achievement Date: 11/27/2022 Goal Status: Achieved Other STG 2: Focus: Motor Speech Level of Assistance to Meet Other STG 2: Min assist (10-24%) Details: Demonstrate use of strategies at the phrase level Expected Achievement Date: 11/27/2022 Goal Status: Achieved Other STG 3: Focus: Swallowing Level of Assistance to Meet Other STG 3: Standby (less than 10%) Details: Tolerate PO trials ice chips, thickened liquids with <10% overt clinical signs/symptomsaspiration or post-swallow distress Expected Achievement Date: 11/27/2022 Goal Status: Achieved Other STG 4: Focus: Swallowing Details: Safely manage current diet (IDDSI 4/2) and trials of upgraded solids as appropriate with no clinical signs of dysphagia. Expected Achievement Date: 12/11/2022 Goal Status: Partially Achieved Other STG 5: Focus: Swallowing Details: Perform swallowing exercises following a model with minimal assistance. Expected Achievement Date: 12/11/2022 Goal Status: Not Achieved Duration Expiration Date: 12/15/[address] 12/04/2022 * OT Weekly Progress Note - Bridgett Evangelista, OT - 12/04/2022 4:28 PM CDT Occupational Therapy Weekly Progress Note Patient Name: Consuelo Darby Patient Birthdate: 1980 OT Current Functional Status: Ms. Darby's current status is as follows (per documentation and observation): EATING: with supervision, on water protocal ORAL HYGIENE: with supervision from w/c level. TOILETING: with dependence, requires assist of 2 to complete (one person to assist with standing and another person to assist with clothing management and hygiene) SHOWER/BATHING: with maximal assistance (less than 76%) per nursing report UPPER BODY DRESSING: with dependence per nursing report. LOWER BODY DRESSING: with dependence with all aspects FOOTWEAR: with moderate assistance sitting on edge of mat, assist needet for tying shoes and for cross left LE over right, assit for donning left shoe. Able to cross right LE over left without assistance to salvatore/doff footwear. ROLL LEFT/RIGHT: with maximal assistance to roll toward right and minimal assistance to roll left per PT report SIT TO LYING: with dependence with assist of 2 people for safety. LYING TO SITTING: with dependece with assist of 2 people for safety SIT TO STAND: with maximal assist of one BED TO CHAIR TRANSFER: with dependence using sliding board with assist of 2 for safety TOILET TRANSFER: with dependence with use of sliding board to drop arm commode with assist of 2 forsafety. Ms. Darby transferred to towards right side. Ms. Darby presents with no active movement in left UE with increased tone noted in left shoulder and slight tone noted in left digits. She requires cues to attend to left side of body and environment. She currently is using prism lenses on glasses for vision. Ms. Darby has made good progress towards eating, oral hygiene, transfers, and sitting balance. However, she continues to be limited in these areas as well as selfcare, left UE function, cognition, visual perception, and endurance and wouldbenefit from continued OT services to work on maximizing functional independence. Facilitating Factors in Goal Achievement: Patient understanding and knowledge, Patient compliance, Patient motivation, Support of family or caregiver, Use of compensatory strategies, Improved functional mobility, Improved balance and Improved function Barriers to Goal Achievement: Pain, ROM limitations, Strength limitations, Motor control deficits, Balance deficits, Diminished endurance, Tone deficits, Impaired skin integrity, Cognitive deficits, Decreased safety awareness and Visual deficits Date Last Assessed: 12/04/2022 Patient needs assistance with the following activities: Activities of daily living, Vision, Going out in the community, Use of bathroom equipment, Memory, Positioning, Rolling, Sitting balance and Reaching Will patient require a prosthetic or orthotic device upon discharge: No DME Recommendations Common Therapy DME: Commodes Commode - Type: Drop Arm Commode (patient is unable to access restroom; currently she is using a lift to transfer on and off of BSC, but she may progress to lateral transfers with sliding board in the future.) CARE Score Fields: 6: Independent. [place] provides no assistance with tasks. A device may or may not have been used. 5: Set-up or clean-up assistance. [place] sets up or cleans up, but does not assist with tasks. [place] may have assisted prior to or following the activity. 4: Supervision or touching assistance. [place] provides verbal cues or touching/steadying or contactguard assistance. Assistance may be provided throughout the activity or intermittently. 3: Partial/moderate assistance. [place] does less than half the effort. [place] lifts, holds, or supports trunk or limbs, but provides less than half the effort. 2: Substantial/maximal assistance. [place] does more than half the effort. [place] lifts or holds trunk or limbs, and provides more than half the effort. 1: Dependent. [place] does all of the effort, or the assistance of two or more helpers is required for the patient to complete the activity. -: Inconsistent or incomplete documentation Activity not attempted values: 7: Patient refused 9: Not applicable - Not attempted and the patient did not perform this activity prior to the current illness, exacerbation, or injury. 10: Not attempted due to environmental limitations (e.g., lack of equipment, weather constraints) 88: Not attempted due to medical condition or safety concerns Mcfp Goals: Goal Status on Admission Current Status Eating LTG: Supervision or touching assistance Eating - CARE Score: 88 (11/18/22 1252 : Roland Eubanks OT) Eating - CARE Score: 4 (12/04/221622) Oral Hygiene LTG: Supervision or touching assistance Oral Hygiene - CARE Score: 2 (11/18/22 1252 : Roland Avendano OT) Oral Hygiene - CARE Score: 4 (12/04/221622) Toileting Hygiene LTG: Partial/moderate assistance Toileting Hygiene - CARE Score: 1 (11/18/22 1252: Roland Avendano OT) Toileting Hygiene - CARE Score: 1 (12/04/221622) Shower/Bathe Self LTG: Partial/moderate assistance Shower/Bathe Self - CARE Score: 1 (11/18/22 1252: Roland Avendano OT) Shower/Bathe Self - CARE Score: 1 (12/04/221622) Upper Body Dressing LTG: Partial/moderate assistance Upper Body Dressing - CARE Score: 1 (11/18/22 1252 : Roland Avendano OT) Upper Body Dressing - CARE Score: 1 (12/04/221622) Lower Body Dressing LTG: Partial/moderate assistance Lower Body Dressing - CARE Score: 1 (11/18/22 1252 : Roland Avendano OT) Lower Body Dressing - CARE Score: 1 (12/04/221622) Putting On/Taking Off Footwear LTG: Partial/moderate assistance Putting On/Taking Off Footwear - CARE Score: 1 (11/18/22 1252 : Roland Avendano OT) Putting On/Taking Off Footwear - CARE Score: 3 (12/04/221622) Roll Left and Right - CARE Score: 1 (11/18/22 1252 : Roland Avendano OT) Roll Left and Right - CARE Score: 2 (12/04/221622) Sit to Lying - CARE Score: 88 (11/18/22 1252 : Roland Avendano OT) Sit to Lying - CARE Score:1 (12/04/221622) Lying to Sitting on Side of Bed - CARE Score: 88 (11/18/22 1252 : Roland Avendano, OT) Lying to Sitting on Side of Bed - CARE Score: 1 (12/04/221622) Sit to Stand - CARE Score: 88 (11/18/22 1252 : Roland Avendano, OT) Sit to Stand - CARE Score:2 (12/04/221622) Chair/Xyl-[id number]-[id number] Transfer LTG: Partial/moderate assistance Chair/[id number] Transfer - CARE Score: 1 (11/18/22 1252 : Roland Avendano, OT) Chair/Tmi-gf-[id number] Transfer - CARE Score: 1 (12/04/221622) Toilet Transfer LTG: Partial/moderate assistance Toilet Transfer - CARE Score: 88 (11/18/22 1252 : Roland Avendano, OT) Toilet Transfer - CARE Score: 1 (12/04/221622) Additional Goals & Status: N/A OT Short Term Goal 1: Focus: Toileting Hygiene Level of Assistance to Meet Short Term Goal: Physical assistance 50%-74% Expected Achievement Date: 12/11/2022 Goal Status: Not Achieved OT Short Term Goal 2: Focus: Shower/Bathe Level of Assistance to Meet Short Term Goal: Physical assistance 50%-74% Expected Achievement Date: 12/11/2022 Goal Status: Not Achieved OT Short Term Goal 3: Focus: Upper Body Dressing Level of Assistance to Meet Short Term Goal: Physical assistance 50%-74% Expected Achievement Date: 12/11/2022 Goal Status: Not Achieved OT Short Term Goal 4: Focus: Lower Body Dressing Level of Assistance to Meet Short Term Goal: Physical assistance 50%-74% Expected Achievement Date: 12/11/2022 Goal Status: Not Achieved OT Short Term Goal 5: Focus: Chair/Bed Transfer Level of Assistance to Meet Short Term Goal: Physical assistance 50%-74% Expected Achievement Date: 12/11/2022 Goal Status: Not Achieved OT Short Term Goal 6: Focus: Toilet Transfer Level of Assistance to Meet Short Term Goal: Physical assistance 50%-74% Expected Achievement Date: 12/11/2022 Goal Status: Not Achieved Duration Expiration Date: 12/14/2022 BRIDGETT EVANGELISTA, OT 12/04/2022 * PT Weekly Progress Note - Kellie Moran, PT - 12/04/2022 3:34 PM CDT PT Weekly Progress Note Patient Name: Consuelo Darby Patient Birthdate: 1980 PT CURRENT FUNCTIONAL STATUS: PT Current Functional Status: PT Current Functional Status: Ms. Darby's functional status as follows: PRECAUTIONS: helmet on when up/moving around. Can be off when stationary in bed. Has g-tube. Free water protocal after oral hygiene. SITTING BALANCE: pt able to static sit at edge of mat with right UE support: min/mod for centered positioning then close stand by. Able to reach within CARMEN with right UE and maintain balance, close stand by assist. Slight reach outside CARMEN right with occassional min. To left of midline- occassionalmin to min/mod for regain balance due to LOB left. With cues able to bring head to midline then track left of midline and maintain sitting balance. BED MOBILITY: Sit to/from supine with max/total assist. Support for left side, positioning. Max of one and at times min/mod of another for trunk/lift assist. Varies with left hip pain. Rolls left with min assist to complete motion, to right with max assist to help left side- completemotion. Painful left hip. *have trialed use of abductor wedge on lateral side of leg leg to assist with positioning, control flexion response and lateral hip rotation- will continue to monitor. TRANSFERS Sit to/from stand with max assist on left to block left leg, lift assist, balance/control push left.. support of right grab bar once up. Stand pivot with max assist of one and min/mod of another. Going right can be max of one and stand by to cga of another, varies. More assist going left due to visual deficits. Wc to/from level mat with use of transfer board: max of one and stand by to min of another. At times assist of second person for hip adjustment once in w/c. At times use of myra-flex stand lift for bed to/from w/c and for toileting. Car transfer: not safe to attempt at this time GAIT: therapeutic ambulation at this time due to level of assist. Not recommended with family at hi. Sling to support left UE. [place] wrap to assist left ankle DF. Knee immobilizer for left knee extension. Pt ambulates in parallel bars: 8-10ft. Max assist of one to advance and block left leg, trunk support, facilitate wt shift right. Min/mod of another for trunk support and occassional assist of left leg. Have trialed use of knee immobilizer on left leg for knee control. Close w/c for safety. Pt has also ambulated 5-10ft with hemiaide on right. Max on left for trunk support/balance, wt shift. Max to advance and block left leg. Mod initially on right of another then min for balance and cane management. Pt with gradual increase in cane advancement. Cues for upright head control and min to position in neutral. Visual target to maintain neutral head and vision during gait training. W/c follow for safety. Not safe to attempt 50, 150ft. Compliant surface: not safe to attempt Retrieval of an object from the ground: not safe to attempt. STAIRS: not safe to attempt 1, 4, 12 steps at this time. WHEELCHAIR MOBILITY Pt in tilt in space w/c to start. Trialed use of contoured back lightwt w/c: propelled with right UE/LE 80ft with turns, mod/max on left for guidance/control of left daryl. Mod/max cues to scan left of midline- hard to maintain left gaze. Total to go 160ft. Pt tolerated upright in lightweight w/c on vicair vector cushion for pressure relief, left half laptray, safety belt applied. OUTCOME MEASURES: AGITATED BEHAVIOR SCALE 15 POSTURAL ASSESSMENT OF STROKE , improved from , on eval. 10 METER WALK TEST not able to attempt at this time PROGRESS: Ms. Darby is making steady progress with therapy. Consult for w/c completed with Elbert, recommend light weight w/c with contour back, left half lap tray-adjustable armrests to provide support for left hemiparetic arm, support left shoulder. She is making steady progress with sitting ba debbie/tolerance, transfers, scanning ability to left of midline. Barriers are pain in left hip- MD aware, left hemiparesis. She works very hard and will continue to benefit from intensive therapy to maximize functional gains. Factors in Goal Achievement: Facilitating Factors: Patient understanding and knowledge, Support of family or caregiver, Improvedfunctional mobility, Improved balance and Improved function Barriers: Pain, Strength limitations, Motor control deficits, Tone deficits and Other (comment) (left inattention and visual deficits) Date Last Assessed: 12/04/2022 DME Recommendations Common Therapy DME: Hospital Bed, Specialty Mattress, Transfer Board, Manual Lift, Manual Wheelchair (contacted [employer] regarding specialty w/c for home use) Hospital Bed - Type: Semi-Electric Hospital bed Manual Lift: Sling Lift Specialty Mattres - Type: Low Air Loss, Other (comment) (significant immobility with left side, high risk of pressure injuries, requires assist for position changes.) Transfer Board - Type: 24 in without cutout CARE Score Fields: 6: Independent. [place] provides no assistance with tasks. A device may or may not have been used. 5: Set-up or clean-up assistance. [place] sets up or cleans up, but does not assist with tasks. [place] may have assisted prior to or following the activity. 4: Supervision or touching assistance. [place] provides verbal cues or touching/steadying or contactguard assistance. Assistance may be provided throughout the activity or intermittently. 3: Partial/moderate assistance. [place] does less than half the effort. [place] lifts, holds, or supports trunk or limbs, but provides less than half the effort. 2: Substantial/maximal assistance. [place] does more than half the effort. [place] lifts or holds trunk or limbs, and provides more than half the effort. 1: Dependent. [place] does all of the effort, or the assistance of two or more helpers is required for the patient to complete the activity. -: Inconsistent or incomplete documentation Activity not attempted values: 7: Patient refused 9: Not applicable - Not attempted and the patient did not perform this activity prior to the current illness, exacerbation, or injury. 10: Not attempted due to environmental limitations (e.g., lack of equipment, weather constraints) 88: Not attempted due to medical condition or safety concerns [facility] Goals: Goal Status on Admission Current Status Car Transfer LTG: Partial/moderate assistance (Patient will complete car transfer with moderate assist to be able to transport in a personal vehicle.) Car Transfer - CARE Score: 88 (11/18/22 1006 : Roxanne Goldberg, PT) Car Transfer - CARE Score: 88 (12/04/221540) Walk 10 Feet - CARE Score: 88 (11/18/22 1006 : Roxanne Goldberg PT) Walk 10 Feet - CARE Score: 1 (12/04/221540) Walk 50 Feet with Two Turns - CARE Score: 88 (11/18/22 1006 : Roxanne Goldberg PT) Walk 50 Feet with Two Turns - CARE Score: 88 (12/04/221540) Walk 150 Feet - CARE Score: 88 (11/18/22 1006 : Roxanne Goldberg PT) Walk 150 Feet - CARE Score: 88(12/04/221540) Walking 10 Feet on Uneven Surfaces - CARE Score: 88 (11/18/22 1006 : Roxanne Goldberg PT) Walking 10 Feet on Uneven Surfaces - CARE Score: 88 (12/04/221540) 1 Step (Curb) - CARE Score: 88 (11/18/22 1006 : Roxanne Goldberg PT) 1 Step (Curb) - CARE Score: 88(12/04/221540) 4 Steps - CARE Score: 88 (11/18/22 1006 : Roxanne Goldberg PT) 4 Steps - CARE Score: 88 (12/04/221540) 12 Steps - CARE Score: 88 (11/18/22 1006 : Roxanne Goldberg PT) 12 Steps - CARE Score: 88 () Picking Up Object - CARE Score: 88 (11/18/22 1006 : Roxanne Goldberg PT) Picking Up Object - CARE Score: 88 (12/04/221540) Wheel 50 Feet with Two Turns LTG: Supervision or touching assistance (Patient will be able to wheel50 ft including navigating the environment with touching assistance.) Wheel 50 Feet with Two Turns - CARE Score: 88 (11/18/22 1006 : Roxanne Goldberg PT) Wheel 50 Feet with Two Turns - CARE Score: 2 (12/04/221540) Wheel 150 Feet - CARE Score: 88 (09/09/23 1006 : Roxanne Goldberg, PT) Wheel 150 Feet - CARE Score: 2 (12/04/22 1541) Additional Goals & Status: N/A PT Other Mcfp Goals Flowsheet Row Most Recent Value Other PT [facility] Goals Other Goals - [place] Mcfp 1, Mcfp 2 Filed on: 11/18/2022 105 Other Mcfp Goal 1 Patient will complete transfers with moderate assist of one person. Filed on: 11/18/2022 105 Other [facility] Goal 1 Status Established Filed on: 11/18/2022 105 Other [facility] Goal 2 Patient will complete bed mobility including rolling and supine<> sit transitions with minimal assistance. Filed on: 11/18/2022 105 Other [place] Goal 2 Status Established Filed on: 11/18/20221056 Expected Achievement Date 12/15/22 Filed on: 11/18/2022 105 PT Short Term Goal 1: Focus: Other Details: Patient will be able to tolerate being out of bed and seated in her wheelchair for increased engagement within therapy session. Expected Achievement Date: 11/25/2022 Goal Status: Achieved PT Short Term Goal 2: Focus: Other (Bed mobility) Level of Assistance to Meet Short Term Goal: Physical assistance 75% or more Details: Patient will complete rolling in bed with maximal assist of one. Expected Achievement Date: 12/04/2022 Status: Achieved PT Short Term Goal 3: Level of Assistance to Meet Short Term Goal: Total assistance Details: Patient will be able to complete sit <> supine transitions with two person moderate assist. Expected Achievement Date: 12/11/2022 Status: Partially Achieved PT Short Term Goal 4: Details: Pt w/c to mat with stand pivot and max assist of one. Expected Achievement Date: 12/11/2022 Goal Status: Partially Achieved Duration Expiration Date: 12/17/2022 KELLIE MORAN, PT 12/04/2022 CHART CORRECTION: Type of Chart Edit: Addendum Reason for Correction: Additional information added (added sitting balance info) Name: Kellie Moran PT Date: 12/04/2022 Time: 15:47 CDT * OT Treatment Note - Bridgett Evangelista, OT - 12/04/2022 1:46 PM CDT Occupational Therapy Treatment Patient Name: Consuelo Darby Patient Birthdate: 1980 Patient Subjective Report - My hand feels cold and stiff. Pain Assessment Pain Context: Therapy Assessment During Treatment (12/04/221347) Pain Assessment: NRS 0-10 (12/04/221347) Pain Score: 6 - Moderate Pain (when moving hip) (12/04/221347) Pain Severity - NRS (Calculated): Moderate (12/04/221347) Pain Type: Acute pain (12/04/221347) Pain Location: Hip (12/04/221347) Pain Orientation: Left (12/04/221347) Pain Descriptors: Stabbing, Radiating (12/04/221347) Pain Onset: Ongoing (12/04/221347) Pain Frequency: Constant/continuous (12/04/221347) Aggravating Factors: Activity Duration, Positioning (12/04/221347) Pre-therapy pain intervention required: Patient expressed pain is tolerable/able to proceed, Other (Comment) (declined for nursing to provide medication at this time.) (12/04/221347) Pain Interventions Education Provided: Patient (12/04/221347) Non-Pharmacologic Pain Interventions: Distractions, Exercise/Activity, Position/Reposition, Rest (12/04/221347) Emotional/Spiritual Pain Interventions: Emotional Support (12/04/221347) OT Therapeutic Activity: Endurance: Rest breaks as needed. Patient Education: Reviewed importance of positioning of left LE when sitting in w/c. Ms. Darby reported she understood. Therapist reviewed importance of looking to left to attend to left side of body as well as environment. Ms. Darby verbalized understanding. Cognition: Decreased response time, problem solving, safety awareness, and memory. Ms. Darby received call from cafeteria regarding meals for tomorrow. She was able to place order with staff over phone with increased time. Visual Perceptual: Ms. Darby c/o losing her sethi wedge pillows when staff changed out her low air loss mattress to regular mattress. Therapist asked Ms. Darby to look towards left side of room to look to see if wedges were still in room. With increased time and cues to turn head completely left, Ms. Darby was able to locate wedges. Decreased attention to left UE position. Ms. Darby left UE was resting at side of Ms. Darby and arm rest. Therapist repositioned arm and discussed importance of paying attention to left UE and using vision to scan to left to attend to arm. Ms. Darby verbalized understanding. One prism lens came off of Ms. Darby's glasses on right side. Therapist figured out how to reposition and reapply lens. Ms. Darby participated with visual spatial activity using the shapes and board top to game of perfection. Therapist placed shapes to left of board, however, Ms. Darby would gather shapes and place onto right side. Ms. Darby used trial and error method approximately 70%of the time when trying to place shapes and required cues to attend to left side of board. Cues for attention to details. Ms. Darby was able to place 4/9 shapes without assistance and increased time.However, all shapes she was able to place were located on far right. Treatment, Outcomes and Plan: OT Narrative:: Ms. Darby tolerated tx with rest breaks as needed. She would benefit from continued OT services to work on maximizing functional independence. OT Treatment Outcomes:: Safety device reapplied, Patient tolerated treatment well, Patient is progressing toward STG(s), Goals met for this session and Cues needed for safety OT Summary Plan of Care: Continue with current plan of care Pain Evaluation and Follow-up Response to Therapy Interventions: Improved activity tolerance (12/04/22 1432) Pain Reassessment: 6 (12/04/22 143) Nursing notified of patient's pain assessment: Other (comment) (declined for therapy to contact nursing regarding pain issue. She reported she wanted to wait until she got into bed.) (12/04/22 143) Therapy Minutes Individual Concurrent Co-Treat Individual (OT) Time In : 1346 Time Out: 1432 Total Time with Patient (Min): 46 min BRIDGETT EVANGELISTA OT 12/04/2022 * Plan of Care - Cristhian Sofia - 12/04/2022 11:27 AM CDT Problem: Infection Goal: Absence of infection and prevention of transmission during hospitalization Outcome: Progressing Problem: Knowledge Deficit Goal: Patient and/or family demonstrate readiness to learn Outcome: Progressing Goal: Patient and/or family verbalizes understanding of education, and/or performs desired skill Outcome: Progressing Problem: Discharge Planning Goal: Discharge to home or other facility with appropriate resources Outcome: Progressing Goal: supervisor engraving will develop a plan to decrease their burden and enhance comfort in role Outcome: Progressing Problem: Delirium Goal: Prevent and Manage Delirium Outcome: Progressing Problem: Fall Prevention: Neglect/Hemiparesis Bundle Goal: Patient will be free from Fall Injury Outcome: Progressing Problem: Fall Safety: [place] Precautions Goal: Free from fall injury Outcome: Progressing Problem: Fall Huddle Goal: Free from Fall Injury Outcome: Progressing Problem: Knowledge Deficit Goal: Patient/Family demonstrated knowledge and consent signed for surgery intervention Outcome: Progressing Goal: Patient/Family demonstrated decreased anxiety Outcome: Progressing Problem: Wound Infection Goal: Sterile techinque maintained Outcome: Progressing Goal: No allergic reaction occurred Outcome: Progressing Problem: Fluid Imbalance Goal: Patient fluid balance maintained Outcome: Progressing Problem: Injury Goal: Patient wound closed with all sharps, sponges, instruments and foreign bodies accounted for Outcome: Progressing Goal: Patient/Personnel protected for unnecessary radiation exposure Outcome: Progressing Goal: Patient free of injury related to surgical positioning Outcome: Progressing Goal: Safety precautions taken accordingly to the [facility] standards Outcome: Progressing Goal: Skin integrity maintained Outcome: Progressing Goal: Equipment meets performance and safety criteria Outcome: Progressing Problem: Pain Goal: Patient's Pain/Discomfort is Manageable Outcome: Progressing * Plan of Care - Roland Mas RD - 12/04/2022 10:18 AM CDT Problem: Swallowing Difficulty Description: Impaired or difficult movement of food and liquid within the oral cavity to the stomach. Related to: Motor causes, e.g., neurological or muscular disorders, such as cerebral palsy, stroke,multiple sclerosis, scleroderma; or prematurity, altered suck, swallow, breathe patterns, encephalopathy As evidenced by: modified consistency diet. Goal: Improve Nutritional Status Outcome: Progressing Flowsheets (Taken 12/04/2022 1018) Meals and Snacks: (pureed diet with mildly thick liquids) Texture modified diet Enteral and Parenteral Nutrition: (bolus 240 mL Jev 1.5 if po < 50% intake) Enteral nutrition Medical Food Supplement Therapy: (chocolate Thrive TID) Commercial beverage/Oral nutrition supplement * PT Treatment Note - Kellie Moran, PT - 12/04/2022 10:00 AM CDT PT Treatment Patient Name: Consuelo Darby Patient Birthdate: 1980 Patient Subjective Report - pt reports increased pain in left hip. RN aware and notified MD. Chandana richards. Pain Assessment Pain Context: Therapy Assessment Prior to Treatment (12/04/22 1000) Pain Assessment: NRS 0-10 (12/04/22 1000) Pain Score: 4 - Moderate Pain (4 sitting still, 9/10 with movement) (12/04/22 1000) Pain Severity - NRS (Calculated): Moderate (12/04/22 1000) Pain Location: Hip (12/04/22 1000) Pain Orientation: Left (12/04/22 1000) Pain Descriptors: Aching, Burning, Sore, Shooting (into thigh at times) (12/04/22 1000) Pain Onset: Ongoing (12/04/22 1000) Pain Frequency: With activity (any left hip movement) (12/04/22 1000) Pre-therapy pain intervention required: Patient expressed pain is tolerable/able to proceed, Nurse notified (12/04/22 1000) Pain Interventions Non-Pharmacologic Pain Interventions: Exercise/Activity, Position/Reposition, Cold Applied (12/04/22 1100) PRECAUTIONS: helmet on when up/moving around. Can be off when stationary in bed. Has g-tube. Free water protocal after oral hygiene. BED MOBILITY: Sit to/from supine with max/total assist. Support for left side, positioning. Max of one and at times min/mod of another for trunk/lift assist. Varies with left hip pain. Rolls left with min assist to complete motion, to right with max assist to help left side- completemotion. Painful left hip. TRANSFERS Sit to/from stand with max assist on left to block left leg, lift assist, balance/control push left. Stand pivot with max assist of one and min/mod of another. Going right can be max of one and stand by to cga of another, varies. More assist going left due to visual deficits. Wc to/from level mat with use of transfer board: max of one and stand by to min of another. At times assist of second person for hip adjustment once in w/c. Car transfer: not safe to attempt at this time WHEELCHAIR MOBILITY Pt in tilt in space w/c to start. Trialed use of contoured back lightwt w/c: propelled with right UE/LE 80ft with turns, mod/max on left for guidance/control of left daryl. Mod/max cues to scan left of midline- hard to maintain left gaze. Pt tolerated upright in lightweight w/c on vicair vector cushion for pressure relief, left half laptray, safety belt applied. OUTCOME MEASURES: AGITATED BEHAVIOR SCALE 15 POSTURAL ASSESSMENT OF STROKE , improved from , on eval. 10 METER WALK TEST not able to attempt at this time Therapeutic Activities and Neuromuscular Re-education: Pt with increased pain in left hip this date. Up in tilt in space chair upon arrival. Painful with all movement- RN aware and provided some painmeds earlier. Pt transferred to edge of mat, level surface, use of sliding board: max of one, min to occassional mod of another for hip positioning. Pt tolerated sitting at edge of mat with right UE support, 5 minutes with close stand by assist. With cues able to turn left and track just left of midline. Pt positioned supine on mat: PROM to left leg: still increased pain in left leg- pulls into flexionat times with pain. Gentle ROM then relaxed over wedge at knee with some relief. Ice provided to left hip/groin area: performed glut sets/hip extension with right leg in hookling, trace lift on left.- 10 reps. Rep from [facility] arrived for w/c consult. Max of one and min/mod of another for lift up to sit at edge of mat due to left hip pain. Once centered sitting at edge of mat: pain improved. Tolerated sitting at edge of mat x10 minutes. contacted via face time for input. Discussed tilt in space vs regular lt wt w/c with contoured back. Discussed measurements, cushions, positioning. Pt positioned into regular light wt w/c with contoured back, vicair cushion for pressure relief. Pt tolerated upright positioning well. Able to initiate more w/c mobility with use of right UE/LE. Pt in agreement recommendation for regular upright light wt w/c vs tilt in space w/c at this time-- will continue to monitor tolerance and safety. also in agreement. Provided gross measurements to [facility] on width of w/c, etc due to ramp andhome modifications underway. Skin Issues Narrative: No skin issues at this time. Pt on vicair cushion in w/c for pressure relief. Pt currently on low air loss mattress in bed-- discussed with wound care nurse and charge nurse: will trial regular bed mattress with turning every 2 hrs vs low airloss to assess comfort and potential to progress transfer status in room. Will monitor. PT Treatment Outcomes:: Safety device reapplied, Patient tolerated treatment well and Patient is progressing toward STG PT Summary:: Mr. Darby tolerated the session well. Increase pain noted in left hip this date with any movement. Some increased flexor response noted with pain response. Gentle movement, ice applied during ex. MD notified of increased pain with movement and will assess. Ms. Darby works hard and continues to make steady progress. PT Summary Plan of Care: Continue with current plan of care Pain Evaluation and Follow-up Response to Therapy Interventions: Other (comment), Improved positioning (tolerated session. still increased pain with left movement but once positioned in w/c pain ok.) (12/04/22 1100) Pain Reassessment: 4 ( notified of increased pain in left hip this date) (12/04/22 1100) Nursing notified of patient's pain assessment: Primary Nurse (12/04/22 1100) Therapy Minutes Individual Concurrent Co-Treat Individual (PT) Time In : 1000 Time Out: 1135 Total Time with Patient (Min): 95 min KELLIE MORAN, PT 12/04/2022 * [employer] Treatment Note - [facility] Meh[facility] - 12/04/2022 8:15 AM CDT Speech Language Pathologist Treatment Patient Name: Consuelo Darby Patient Birthdate: 1980 Patient Subjective Report - I can't wait to do the swallow test again. Pain Assessment Pain Context: Therapy Assessment Prior to Treatment (12/04/22814) Pain Assessment: NRS 0-10 (12/04/22814) Pain Score: 4 - Moderate Pain (12/04/22814) Pain Severity - NRS (Calculated): Moderate (12/04/22814) Pain Type: Acute pain (12/04/22814) Pain Location: Head (12/04/22814) Pain Orientation: Right (12/04/22814) Pain Descriptors: Aching (12/04/22814) Pain Onset: Ongoing (12/04/22814) Pain Frequency: Constant/continuous (12/04/22814) Pre-therapy pain intervention required: Nurse notified (12/04/22814) Pain Interventions Education Provided: Patient (12/04/22857) Non-Pharmacologic Pain Interventions: Distractions (12/04/22857) Cognitive Communication: Immediate memory, Orientation, Task persistence, Short- term memory, Processing information of increased length or complexity, Semi- complex to complex attention, Insight and Visual strategies Dysphagia Treatment: Swallow strategy training, Dysphagia diet training, Effortful swallow, Deep Pharyngeal Neuromusculal Stimulation and Tongue base retraction Recommended diet: IDDSI 4 - Pureed / NDD1, IDDSI 2 - Mildly Thick / [employer] Thick Liquids, Pills Crushed in IDDSI 4 (Pureed / Extremely Thick) and SM Water Protocol (May have ice chips PRN unsupervised after oral care.) Compensatory swallowing techniques: Small bites, Small sips, Eat slowly-control rate, Oral care post PO intake and Seated upright with all PO intake Level of supervision at meals recommended: Assistance with set-up and Monitor at meals and assist as needed Patient/Caregiver Training: Completed with patient, Therapy goals and treatment plan, Cognitive strategies, Communication strategies, Dysarthria, Swallow strategies, Oral hygiene, Current diet and Dysphagia Is patient a candidate for SM Water Protocol? Yes (To be further assessed) ST Narrative:: 1. Patient was seen for therapy in her room, seated in tilt in space wheelchair; alert and cooperative with all tasks. 2. Patient received patterned NMES (PENS) with 9 milliamps on the right side and 7 milliamps on theleft side to achieve a muscle twitch for 15 minutes. Electrode placement was on the masseter muscleand cervical paraspinals on each side to provide neuro-reeducation to the swallow pattern to normalize swallow function. Skin was clear and intact upon removal of the electrodes. 3. Patient was observed drinking water from water pitcher. Oral care had been completed following breakfast and at least 30 minutes had passed per clinical nursing manager. Patient drank from large bore straw inwater pitcher. Cough was observed x1; no other clinical signs of aspiration. 3. Portions of the Cognitive Linguistic Quik Test were attempted. Significant difficulty noted due to left visual neglect. Full results to follow upon completion of all sub tests. 4. Patient performed the effortful swallow x10. She remains unable to sustain a vowel for longer than 2 seconds at a time. 5. Patient remained in her room with call light and phone left within reach. Chair alarm activated. ST Session Outcomes: Patient/family education progressing, Progressing toward STGs, Tolerated treatment well and Minimal cues during session ST Summary Plan of Care: Continue with current plan of care Pain Evaluation and Follow-up Response to Therapy Interventions: Other (comment) (No change) (12/04/22857) Pain Reassessment: 4 (12/04/22857) Nursing notified of patient's pain assessment: Primary Nurse (12/04/22857) Therapy Minutes Individual Concurrent Co-Treat Time In : 0815 Time Out: 0900 Breaks/Pauses (Min): 0 mins Total Time with Patient (Min): [address] 12/04/2022 * Plan of Care - Hyun Barber RN - 12/04/2022 12:08 AM CDT Problem: Discharge Planning Goal: Discharge to home or other facility with appropriate resources Outcome: Progressing Flowsheets (Taken 12/02/2022 0329) Discharge to home or other facility with appropriate resources: Identify barriers to discharge with patient and caregiver Arrange for needed discharge resources and transportation as appropriate Identify discharge learning needs (meds, wound care, etc) Refer to Case Management Department for Coordinating discharge planning for if the patient needs post-hospital services based on physician order or complex needs related to functional status, cognitive ability or social support system Problem: Fall Safety: [place] Precautions Goal: Free from fall injury Outcome: Progressing Flowsheets (Taken 12/02/2022 0329) Free from fall injury: Perform fall risk assessment and identifiers in place (as applicable) Lighting appropriate Offer frequent toileting Bed low, locked 2 side rails Safe mobility and activity (this could include chair safety) Assess for environmental or other risks Frequent re-orientation, orient the patient to the environment MAR review Fall/safety education for patient/family/SO Problem: Injury Goal: Skin integrity maintained Outcome: Progressing Flowsheets (Taken 12/04/2022 0007) Skin integrity maintained: Close careful hair removal documentation * Plan of Care - Cristhian Weberam - 12/03/2022 4:31 PM CDT Problem: Infection Goal: Absence of infection and prevention of transmission during hospitalization Outcome: Progressing Problem: Knowledge Deficit Goal: Patient and/or family demonstrate readiness to learn Outcome: Progressing Goal: Patient and/or family verbalizes understanding of education, and/or performs desired skill Outcome: Progressing Problem: Discharge Planning Goal: Discharge to home or other facility with appropriate resources Outcome: Progressing Goal: supervisor engraving will develop a plan to decrease their burden and enhance comfort in role Outcome: Progressing Problem: Delirium Goal: Prevent and Manage Delirium Outcome: Progressing Problem: Fall Prevention: Neglect/Hemiparesis Bundle Goal: Patient will be free from Fall Injury Outcome: Progressing Problem: Fall Safety: [place] Precautions Goal: Free from fall injury Outcome: Progressing Problem: Fall Huddle Goal: Free from Fall Injury Outcome: Progressing Problem: Knowledge Deficit Goal: Patient/Family demonstrated knowledge and consent signed for surgery intervention Outcome: Progressing Goal: Patient/Family demonstrated decreased anxiety Outcome: Progressing Problem: Wound Infection Goal: Sterile techinque maintained Outcome: Progressing Goal: No allergic reaction occurred Outcome: Progressing Problem: Fluid Imbalance Goal: Patient fluid balance maintained Outcome: Progressing Problem: Injury Goal: Patient wound closed with all sharps, sponges, instruments and foreign bodies accounted for Outcome: Progressing Goal: Patient/Personnel protected for unnecessary radiation exposure Outcome: Progressing Goal: Patient free of injury related to surgical positioning Outcome: Progressing Goal: Safety precautions taken accordingly to the [employer] standards Outcome: Progressing Goal: Skin integrity maintained Outcome: Progressing Goal: Equipment meets performance and safety criteria Outcome: Progressing * Plan of Care - Hyun Barber RN - 12/03/2022 3:54 AM CDT Problem: Discharge Planning Goal: Discharge to home or other facility with appropriate resources Outcome: Progressing Flowsheets (Taken 12/02/2022 0329) Discharge to home or other facility with appropriate resources: Identify barriers to discharge with patient and caregiver Arrange for needed discharge resources and transportation as appropriate Identify discharge learning needs (meds, wound care, etc) Refer to Case Management Department for Coordinating discharge planning for if the patient needs post-hospital services based on physician order or complex needs related to functional status, cognitive ability or social support system Problem: Fall Safety: [place] Precautions Goal: Free from fall injury Flowsheets (Taken 12/02/2022 0329) Free from fall injury: Perform fall risk assessment and identifiers in place (as applicable) Lighting appropriate Offer frequent toileting Bed low, locked 2 side rails Safe mobility and activity (this could include chair safety) Assess for environmental or other risks Frequent re-orientation, orient the patient to the environment MAR review Fall/safety education for patient/family/SO Problem: Fall Prevention: Neglect/Hemiparesis Bundle Goal: Patient will be free from Fall Injury Outcome: Progressing Flowsheets (Taken 11/20/2022 0143 by Archie Loja RN) Patient will be free from Fall Injury: Consult with therapy for appropriate transfer techniques Adequate lighting Use lift equipment Bed/Chair alarms * Plan of Care - Tatianna Pan RN - 12/02/2022 11:18 AM CDT Problem: Infection Goal: Absence of infection and prevention of transmission during hospitalization Outcome: Progressing Flowsheets (Taken 12/02/2022 1118) Absence of infection and prevention of transmission during hospitalization: Assess and monitor for signs and symptoms of infection and vital signs Monitor lab/diagnostic results Administer medications as ordered Problem: Knowledge Deficit Goal: Patient and/or family demonstrate readiness to learn Outcome: Progressing Goal: Patient and/or family verbalizes understanding of education, and/or performs desired skill Outcome: Progressing Problem: Discharge Planning Goal: Discharge to home or other facility with appropriate resources Outcome: Progressing Goal: supervisor engraving will develop a plan to decrease their burden and enhance comfort in role Outcome: Progressing Problem: Delirium Goal: Prevent and Manage Delirium Outcome: Progressing Problem: Fall Prevention: Neglect/Hemiparesis Bundle Goal: Patient will be free from Fall Injury Outcome: Progressing Problem: Fall Safety: [place] Precautions Goal: Free from fall injury Outcome: Progressing Problem: Fall Huddle Goal: Free from Fall Injury Outcome: Progressing Problem: Knowledge Deficit Goal: Patient/Family demonstrated knowledge and consent signed for surgery intervention Outcome: Progressing Goal: Patient/Family demonstrated decreased anxiety Outcome: Progressing Problem: Wound Infection Goal: Sterile techinque maintained Outcome: Progressing Goal: No allergic reaction occurred Outcome: Progressing Problem: Fluid Imbalance Goal: Patient fluid balance maintained Outcome: Progressing Problem: Injury Goal: Patient wound closed with all sharps, sponges, instruments and foreign bodies accounted for Outcome: Progressing Goal: Patient/Personnel protected for unnecessary radiation exposure Outcome: Progressing Goal: Patient free of injury related to surgical positioning Outcome: Progressing Goal: Safety precautions taken accordingly to the [employer] standards Outcome: Progressing Goal: Skin integrity maintained Outcome: Progressing Goal: Equipment meets performance and safety criteria Outcome: Progressing * OT Treatment Note - Roland Avendano OT - 12/02/2022 10:30 AM CDT Occupational Therapy Treatment Patient Name: Consuelo Darby Patient Birthdate: 1980 Patient Subjective Report - I need to poop but it's not coming. (Nurse provided suppository) Pain Assessment Pain Context: Therapy Assessment Prior to Treatment (12/02/221248) Pain Assessment: NRS 0-10 (12/02/221248) Pain Score: 0 - No pain (12/02/221248) Pain Severity - NRS (Calculated): No pain (12/02/221248) ADL Training: ADL Training Narrative: EATING: pt is on SM water protocol. She was provided water container and had several sips of water during session (she did oral hygiene prior to start of session). No coughing noted. ORAL HYGIENE: supervision. TOILETING: total assist; two person assist needed (one person to assist with standing and a second person to assist with clothing management and hygiene). BATHING: UB DRESSING: LB DRESSING: PUTTING ON/TAKING OFF FOOTWEAR: dependent when sitting on EOB ROLL LEFT AND RIGHT: SIT TO LYING: two person assist for safety. LYING TO SITTING: SIT TO STAND: max assist of one; pt stood 2x for about 1 min each with max assist for standing balance. BED TO CHAIR TRANSFER: sliding board transfers w/c to bed with two person assist for safety (especially with slick PELON mattress). TOILET TRANSFER: sliding board transfers on and off of drop arm commode, two person assist for safety. Pt transferred going toward right each time. Pt's family requested to have her try a bariatric drop arm commode instead of a regular one for next time to see if it's more comfortable for her. She was provided with a bariatric drop arm commode. Sitting balance on commode required CGA for balance (sitting balance is improving). OT Therapeutic Activity: Therapeutic Exercise: Ms Darby participated in L UE PROM, tolerating up to 90 degrees of shoulder flexion and abduction. She has full ROM with elbow, wrist, and fingers (minimal increased tone noted)and with supination/pronation. Treatment, Outcomes and Plan: OT Narrative:: Ms Darby tolerated session well. She is making good progress with ADLs and transfers. Her sister in [facility] Jessica was present for family training and assisted with ADLs and transfers. Continued intensive OT recommended. OT Treatment Outcomes:: Patient tolerated treatment well, Safety device reapplied, Patient is progressing toward STG(s), Goals met for this session, Improved ADL performance and Improved ability to perform functional transfers OT Summary Plan of Care: Continue with current plan of care Pain Evaluation and Follow-up Pain Reassessment: 0, No pain (12/02/22 1249) Nursing notified of patient's pain assessment: Not indicated - pain score 2 or less (12/02/22 1249) Therapy Minutes Individual Concurrent Co-Treat Individual (OT) Time In : 1030 Time Out: 1122 Total Time with Patient (Min): 52 min ROLAND AVENDANO, OT 12/02/2022 * Plan of Care - Hyun Barber RN - 12/02/2022 3:30 AM CDT Problem: Discharge Planning Goal: Discharge to home or other facility with appropriate resources Outcome: Progressing Flowsheets (Taken 12/02/2022 0329) Discharge to home or other facility with appropriate resources: Identify barriers to discharge with patient and caregiver Arrange for needed discharge resources and transportation as appropriate Identify discharge learning needs (meds, wound care, etc) Refer to Case Management Department for Coordinating discharge planning for if the patient needs post-hospital services based on physician order or complex needs related to functional status, cognitive ability or social support system Problem: Fall Safety: [place] Precautions Goal: Free from fall injury Outcome: Progressing Flowsheets (Taken 12/02/2022 032) Free from fall injury: Perform fall risk assessment and identifiers in place (as applicable) Lighting appropriate Offer frequent toileting Bed low, locked 2 side rails Safe mobility and activity (this could include chair safety) Assess for environmental or other risks Frequent re-orientation, orient the patient to the environment MAR review Fall/safety education for patient/family/SO * Plan of Care - Tatianna Pan RN - 12/01/2022 1:21 PM CDT Problem: Infection Goal: Absence of infection and prevention of transmission during hospitalization Outcome: Adequate for Discharge Problem: Knowledge Deficit Goal: Patient and/or family demonstrate readiness to learn Outcome: Adequate for Discharge Goal: Patient and/or family verbalizes understanding of education, and/or performs desired skill Outcome: Adequate for Discharge Problem: Discharge Planning Goal: Discharge to home or other facility with appropriate resources Outcome: Adequate for Discharge Goal: supervisor engraving will develop a plan to decrease their burden and enhance comfort in role Outcome: Adequate for Discharge Problem: Pain Goal: Patient's Pain/Discomfort is Manageable Outcome: Adequate for Discharge Problem: Knowledge Deficit Goal: Patient/family/caregiver demonstrates understanding of disease process, treatment plan, medications, and discharge instructions Outcome: Adequate for Discharge Problem: Potential for Compromised Skin Integrity Goal: Skin integrity is maintained or improved Outcome: Adequate for Discharge Goal: Nutritional status is improving Outcome: Adequate for Discharge Problem: Bowel Incontinence Goal: Perineal Skin Integrity is Maintained or Improved Outcome: Adequate for Discharge Problem: Knowledge Deficit Goal: Patient and/or family demonstrate readiness to learn Outcome: Adequate for Discharge Goal: Patient and/or family verbalizes understanding of condition and treatment, education, and/or performs desired skill Outcome: Adequate for Discharge Problem: Altered neuro status Goal: Achieves stable or improved neurological status Outcome: Adequate for Discharge Problem: Risk for / Impaired Cognition Goal: Patient has stable or improving cognition Outcome: Adequate for Discharge Problem: Risk for delirium Goal: Prevents and manages delirium Outcome: Adequate for Discharge Problem: Risk for / Impaired Communication Goal: Establish communication to meet the patient/caregiver needs Outcome: Adequate for Discharge Problem: Risk for / Impaired Mobility (Activity Intolerance) Goal: Mobility/activity is maintained at optimum level for patient Outcome: Adequate for Discharge Problem: Self-Care Deficit Goal: Achieves maximum function and self-care Outcome: Adequate for Discharge Problem: Risk for / Imbalanced Nutrition Goal: Maintains adequate nutritional intake Outcome: Adequate for Discharge Problem: Risk for/Anxiety Goal: Demonstrates ability to cope effectively Outcome: Adequate for Discharge Problem: Risk for/ impaired bladder elimination (bowel/bladder) Goal: Patient has stable or improved bladder elimination Outcome: Adequate for Discharge Problem: Risk for /Impaired bowel Goal: Patient has stable or improved bowel elimination Outcome: Adequate for Discharge Problem: Risk for Infection Goal: Absence of infection and prevention of transmission during hospitalization Outcome: Adequate for Discharge Problem: Risk for / Impaired Skin Integrity Goal: Skin integrity is maintained or improved Outcome: Adequate for Discharge Problem: Risk for altered SNS response Goal: Reduce risk and mointor for uninhibited response of sympathetic nervous system Outcome: Adequate for Discharge Problem: Risk for seizure activity Goal: Absence of seizures Outcome: Adequate for Discharge Goal: Remains free of injury related to seizures activity Outcome: Adequate for Discharge Problem: Risk for Aspiration Goal: Patient is free of signs of aspiration and the risk of aspiration is decreased Outcome: Adequate for Discharge Problem: Fall Safety: [place] Precautions Goal: Free from fall injury Outcome: Adequate for Discharge Problem: Fall Huddle Goal: Free from Fall Injury Outcome: Adequate for Discharge Problem: Fall Prevention: Neglect/Hemiparesis Bundle Goal: Patient will be free from Fall Injury Outcome: Adequate for Discharge Problem: Inadequate Oral Intake Goal: Maintain Nutritional Status Outcome: Adequate for Discharge * OT Treatment Note - Roland Avendano OT - 12/01/2022 12:59 PM CDT Occupational Therapy Treatment Patient Name: Consuelo Darby Patient Birthdate: 1980 Patient Subjective Report - I'm afraid to drink water. I don't want to start coughing. Pain Assessment Pain Context: Therapy Assessment Prior to Treatment (12/01/22 1258) Pain Assessment: NRS 0-10 (12/01/22 1258) Pain Score: 0 - No pain (12/01/22 1258) Pain Severity - NRS (Calculated): No pain (12/01/22 125) ADL Training: ADL Training Narrative: EATING: ORAL HYGIENE: supervision, seated in w/c. Pt is able to rinse and spit effectively without use of suction. TOILETING: simulated toileting with use of drop arm commode and sliding board; Pt is able to stand from commode with max assist of one. It appears that she would still need two person assist for safety (and second person to help with hygiene and clothing management). BATHING: UB DRESSING: LB DRESSING: PUTTING ON/TAKING OFF FOOTWEAR: dependent while in bed and when seated on EOB. ROLL LEFT AND RIGHT: SIT TO LYING: two person assist for safety on PELON mattress LYING TO SITTING: two person assist for safety on PELON mattress SIT TO STAND: max assist for sit to stand from w/c and from commode; she tolerated static standing for 30 sec x 3. BED TO CHAIR TRANSFER: two person assist with sliding board out of bed and on and off of drop arm commode; Bed on AutoFirm during transfers. TOILET TRANSFER: two person assist with sliding board to drop arm commode (pt did not need to use the restroom, so we practiced at a time when it was not urgent). She worked on upright sitting balance while seated on the commode (CGA for balance) and while in the wheelchair. Treatment, Outcomes and Plan: OT Narrative:: Pt's sister in law Lopez was present for family training throughout and assisted with all transfers and ADLs (she is knowledgeable about transfers, as she works as a PT). Ms Darby is making good progress with transfers, ADLs and sitting and standing balance. Continued intensive OT recommended. OT Treatment Outcomes:: Safety device reapplied, Patient tolerated treatment well, Patient is progressing toward STG(s), Goals met for this session, Improved ADL performance and Improved ability to perform functional transfers OT Summary Plan of Care: Continue with current plan of care Pain Evaluation and Follow-up Pain Reassessment: 0, No pain (12/01/22 153) Nursing notified of patient's pain assessment: Not indicated - pain score 2 or less (12/01/22 153) Therapy Minutes Individual Concurrent Co-Treat Individual (OT) Time In : 1258 Time Out: 1348 Total Time with Patient (Min): 50 min ROLAND AVENDANO, OT 12/01/2022 * PT Treatment Note - Kellie Moran, PT - 12/01/2022 9:55 AM CDT PT Treatment Patient Name: Consuelo Darby Patient Birthdate: 1980 Patient Subjective Report - pt reports having a bad headache, got up earlier before meds. But reported had pain meds now. Ok for therapy. Pain Assessment Pain Context: Therapy Assessment Prior to Treatment (12/01/22954) Pain Assessment: NRS 0-10 (12/01/22954) Pain Score: 8 - Severe Pain (12/01/22954) Pain Severity - NRS (Calculated): Severe (12/01/22954) Pain Location: Head (12/01/22954) Pain Descriptors: Headache (12/01/22954) Pain Onset: Ongoing (12/01/22954) Pain Frequency: Intermittent (12/01/22954) Pre-therapy pain intervention required: Patient expressed pain is tolerable/able to proceed (reported received pain meds earlier) (12/01/22954) Pain Interventions Non-Pharmacologic Pain Interventions: Exercise/Activity, Position/Reposition, Relaxation (12/01/22 1050) Emotional/Spiritual Pain Interventions: Emotional Support, Empathetic Discussion (12/01/22 7600) Bed Mobility Comment: Sit to/from supine on mat with max assist of one for left side assist, lift assist at trunk. Sit to/from supine in hospital bed with low air loss mattress, inflated for stability- max of one and min/mod of another for safety. Gait Analysis: Sling to support left UE. [place] wrap to assist left ankle DF. Helmet in place. Pt ambulated in parallel bars: 8ft x2. Max assist of one to advance and block left leg, trunk support, facilitate wt shift right. Min/mod of another for trunk support and occassional assist of left leg. Close w/c for safety. Trials/Comments1: Tilt in space w/c to level mat with use of transfer board: max of one, min of another for lift/hip positioning. Trials/Comments 2: Tilt in space w/c to hospital bed with use of myra-flex stand lift- min support on left for balance when pt in stance position. Trials/Comments 3: Sit to stand from edge of tsering-hub mat with use of grab-bar: max of one to blockleft leg, lift assist. Wheelchair Analysis: Pt requiring tilt in space w/c at this time to provide appropriate head and trunk support, position changes. Order from chandana Dietrich to remove helmet when up in chair, stationary. Therapeutic Activities and Neuromuscular Re-education: Pt up in tilt in space w/c upon arrival. Reporting increased headache this am, recently received pain meds. Pt transferred to sit at edge of mat with use of transfer board, max of one, min of another. Static sitting at edge of mat: mod/max initially then min to close stand by assist. Focus on midline head position and scanning left. Able to scan left to target just past midline. Reaching with right UE within CARMEN, close stand by to min at times when reaching left of midline. Supine on mat: PROM to left leg. Discussed positioning. Trialing use of abductor wedge to assist left leg positioning/extension in bed. Will trial laterally as well to control flexion response, hip external rotation. With left leg in hooklying: active right leg heel slides- 15 reps. Sitting at edge of mat again for right UE activity, support on bedside table at times, min assist. Scanning left of midline and reaching activity. Repeated sit to/from stance with use of grab bar on right: max of one. Stood grossly 40-60 seconds x3 with focus on midline trunk, head and scanning left. PT Treatment Outcomes:: Safety device reapplied, Patient tolerated treatment well, Patient is progressing toward STG and Patient and family education progressing as expected PT Summary:: Pt sister in law Jessica present for most of session. Jessica is a PT and assisted with hands on with patient. Discussed various transfer options and progress being made. Jessica cleared to assist pt in sitting at edge of bed with tech assist. Ms. Darby works very hard and is makingsteady progress. She will continue to benefit from intensive therapy to maximize functional gains. PT Summary Plan of Care: Continue with current plan of care Pain Evaluation and Follow-up Response to Therapy Interventions: Improved activity tolerance (12/01/22 1050) Pain Reassessment: 0, No pain (12/01/22 1050) Therapy Minutes Individual Concurrent Co-Treat Individual (PT) Time In : 954 Time Out: 1131 Total Time with Patient (Min): 96 min KELLIE MORAN, PT 12/01/2022 * [employer] Treatment Note - [facility] Mehdi - 12/01/2022 9:00 AM CDT Speech Language Pathologist Treatment Patient Name: Consuelo Darby Patient Birthdate: 1980 Patient Subjective Report - When will we do the swallow test again? Pain Assessment Pain Context: Therapy Assessment Prior to Treatment (12/01/22899) Pain Assessment: NRS 0-10 (12/01/22899) Pain Score: 8 - Severe Pain (12/01/22899) Pain Severity - NRS (Calculated): Severe (12/01/22899) Pain Type: Acute pain (12/01/22899) Pain Location: Head (12/01/22899) Pain Descriptors: Headache (12/01/22899) Pain Onset: Ongoing (12/01/22899) Pain Frequency: Constant/continuous (12/01/22899) Pre-therapy pain intervention required: Nursing medicated patient - see MAR (12/01/2200) Pain Interventions Education Provided: Patient (12/01/22943) Non-Pharmacologic Pain Interventions: Distractions (12/01/22943) Cognitive Communication: Immediate memory, Orientation, Basic attention, Task persistence, Short-term memory, Processing information of increased length or complexity, Semi-complex to complex attention and Insight Dysphagia Treatment: Oral care, Swallow strategy training and Dysphagia diet training Recommended diet: IDDSI 4 - Pureed / NDD1, IDDSI 2 - Mildly Thick / [employer] Thick Liquids, Pills Crushed in IDDSI 4 (Pureed / Extremely Thick) and SM Water Protocol (May have ice chips PRN unsupervised after oral care.) Compensatory swallowing techniques: Small bites, Small sips, Eat slowly-control rate, Oral care post PO intake and Seated upright with all PO intake Level of supervision at meals recommended: Assistance with set-up and Monitor at meals and assist as needed Patient/Caregiver Training: Completed with patient, Therapy goals and treatment plan, Cognitive strategies, Communication strategies, Dysarthria, Swallow strategies, Oral hygiene, Current diet and Dysphagia Is patient a candidate for SM Water Protocol? Yes (To be further assessed) ST Narrative:: 1. Patient was seen for therapy in her room, seated in tilt in space wheelchair; alert and cooperative with all tasks. 2. Patient reported having nausea but did not want to have a bolus feeding She was assisted with finishing her yogurt to eat 50% of her breakfast tray. 3. Patient was assisted with performing oral care at the sink. She was able to brush her teeth independently following set up. 4. Patient participated in a complex topic of discussion regarding stroke risk factors and stroke prevention. Stroke Risk Scorecard from the National Stroke Association completed this date to increase patient understanding of risk factors associated with stroke. Lifestyle change recommendations andmanagement were discussed with patient to promote a healthier lifestyle. Medication list was reviewed. Patient was engaged in active discussion regarding recommendations, demonstrating appropriate comprehension, insight into deficits, and reasoning skills. 5. Water Protocol was reviewed. Patient acknowledged understanding the Water Protocol. 6. Patient remained in her room with call light and phone left within reach. Chair alarm activated. ST Session Outcomes: Patient/family education progressing, Progressing toward STGs, Tolerated treatment well and Minimal cues during session ST Summary Plan of Care: Continue with current plan of care Pain Evaluation and Follow-up Response to Therapy Interventions: Other (comment) (No change) (12/01/22943) Pain Reassessment: 8 (12/01/22943) Nursing notified of patient's pain assessment: Other (comment) (RN gave pain medication.) (944) Therapy Minutes Individual Concurrent Co-Treat Time In : 09 Time Out: 944 Breaks/Pauses (Min): 0 mins Total Time with Patient (Min): [address] 12/01/2022 * Plan of Care - Awilda Gonsalves RN - 12/01/2022 4:18 AM CDT Problem: Discharge Planning Goal: Discharge to home or other facility with appropriate resources Flowsheets (Taken 11/24/2022 0304) Discharge to home or other facility with appropriate resources: Identify barriers to discharge with patient and caregiver Arrange for needed discharge resources and transportation as appropriate Identify discharge learning needs (meds, wound care, etc) Arrange for interpreters to assist at discharge as needed Refer to Case Management Department for Coordinating discharge planning for if the patient needs post-hospital services based on physician order or complex needs related to functional status, cognitive ability or social support system * [employer] Treatment Note - [facility] - 11/30/2022 1:49 PM CDT Speech Language Pathologist Treatment Patient Name: Consuelo Darby Patient Birthdate: 1980 Patient Subjective Report - I brushed my teeth at the sink today. Pain Assessment Pain Context: Therapy Assessment Prior to Treatment (11/30/22 134) Pain Assessment: NRS 0-10 (11/30/221348) Pain Score: 4 - Moderate Pain (11/30/221348) Pain Severity - NRS (Calculated): Moderate (11/30/22 134) Pain Type: Acute pain (11/30/22 134) Pain Location: Hip (11/30/22 134) Pain Orientation: Left (11/30/22 134) Pain Descriptors: Aching (11/30/22 134) Pain Onset: Ongoing (11/30/22 134) Pain Frequency: Constant/continuous (11/30/22 134) Pre-therapy pain intervention required: Patient expressed pain is tolerable/able to proceed (11/30/22 134) Pain Interventions Education Provided: Patient (11/30/22 1435) Non-Pharmacologic Pain Interventions: Distractions (11/30/22 1435) Cognitive Communication: Immediate memory, Orientation, Basic attention, Task persistence, Short-term memory, Processing information of increased length or complexity, Semi-complex to complex attention and Insight Dysphagia Treatment: Oral care, Swallow strategy training, Dysphagia diet training and Deep Pharyngeal Neuromusculal Stimulation Recommended diet: IDDSI 4 - Pureed / NDD1, IDDSI 2 - Mildly Thick / [employer] Thick Liquids, Pills Crushed in IDDSI 4 (Pureed / Extremely Thick) and SM Water Protocol (May have ice chips PRN unsupervised after oral care.) Compensatory swallowing techniques: Small bites, Small sips, Eat slowly-control rate, Oral care post PO intake and Seated upright with all PO intake Level of supervision at meals recommended: Assistance with set-up and Monitor at meals and assist as needed Patient/Caregiver Training: Completed with patient, Therapy goals and treatment plan, Cognitive strategies, Communication strategies, Dysarthria, Swallow strategies, Oral hygiene, Current diet and Dysphagia Is patient a candidate for SM Water Protocol? Yes (To be further assessed) ST Narrative:: 1. Patient was seen for therapy in her room, seated in tilt in space wheelchair; alert and cooperative with all tasks. Discussed schedule for out of bed. Patient verbalized understanding. 2. Patient was observed drinking mildly thick liquids with no clinical signs/symptoms of aspiration. 3. [employer] discussed the Water Protocol with patient. Patient verbalized understanding and agreed to participate. Order was obtained and wall signs placed. RN was notified. 4. Patient received patterned NMES (PENS) with 10 milliamps on the right side and 7 milliamps on the left side to achieve a muscle twitch for 15 minutes. Electrode placement was on the masseter muscle and cervical paraspinals on each side to provide neuro-reeducation to the swallow pattern to normalize swallow function. Skin was clear and intact upon removal of the electrodes. 5. Patient was engaged in a complex topic of discussion regarding stroke: What is a stroke? What are the causes? What are the complications? How does rehab work? What happens after discharge? What are ways to prevent stroke? Patient participated well in the discussion and verbalized understanding of the material discussed. 6. Patient remained in her room with call light and phone left within reach. Chair alarm activated. ST Session Outcomes: Patient/family education progressing, Progressing toward STGs, Tolerated treatment well and Minimal cues during session ST Summary Plan of Care: Continue with current plan of care Pain Evaluation and Follow-up Response to Therapy Interventions: Other (comment) (No change) (11/30/22 1435) Pain Reassessment: 4 (11/30/22 143) Nursing notified of patient's pain assessment: Other (comment) (Patient declined the need to notifythe nurse at this time.) (11/30/22 143) Therapy Minutes Individual Concurrent Co-Treat Time In : 1349 Time Out: 1435 Breaks/Pauses (Min): 0 mins Total Time with Patient (Min): 46 min Missed Minutes : [address] 11/30/2022 * OT Treatment Note - Roland Avendano, OT - 11/30/2022 1:00 PM CDT Occupational Therapy Treatment Patient Name: Consuelo Darby Patient Birthdate: 1980 Patient Subjective Report - Yes I can see the food on my tray (tray positioned to right side of patient). Pain Assessment Pain Context: Therapy Assessment Prior to Treatment (11/30/22 130) Pain Assessment: NRS 0-10 (11/30/22 1303) Pain Score: 0 - No pain (11/30/22 1303) Pain Severity - NRS (Calculated): No pain (11/30/22 130) ADL Training: ADL Training Narrative: EATING: supervision, pureed diet with thickened liquids; tray positioned to the right; cues for wiping left side of mouth ORAL HYGIENE: supervision without use of suction toothbrush. She is now able to spit and rinse mouth effectively without suction. TOILETING: BATHING: UB DRESSING: LB DRESSING: discussed sonya techniques, such as crossing left leg over right to don L pants over left foot first (assist needed for crossing L leg over right). PUTTING ON/TAKING OFF FOOTWEAR: mod assist; pt needed assist for tying shoes and for crossing left leg over right; she also needed assist for donning L shoe. She was able to cross right leg over leftwithout assistance for don/doffing footwear. ROLL LEFT AND RIGHT: SIT TO LYING: LYING TO SITTING: SIT TO STAND: max assist for sit to stand from the mat BED TO CHAIR TRANSFER: two person assist for sliding board transfers w/c to and from mat; she was able to assist with the transfer, especially when going to the right side. TOILET TRANSFER: OT Therapeutic Activity: Therapeutic Exercise: Static sitting balance on the mat for 20 min with min a for balance (mod assist a few times), cues for upright posture and engaging abdominal muscles. Mod assist needed for repositioning in the wheelchair after sliding board transfer back to wheelchair. Static standing for 30 sec with max assist of one from the mat. She also practiced scooting to the left and right while seated on the mat. Pt participated in L UE PROM activities (tolerated PROM to about 90 degrees shoulder flexion and abduction, full elbow extension/flexion and supination/pronation and finger movements). No AROM noted in L UE. Treatment, Outcomes and Plan: OT Narrative:: Ms Darby is making good progress with ADLs, transfers and trunk control. She is motivated and cooperative. Continued intensive OT recommended to maximize functional independence and safety. OT Treatment Outcomes:: Safety device reapplied, Patient tolerated treatment well, Patient is progressing toward STG(s), Goals met for this session, Improved ADL performance and Improved ability to perform functional transfers OT Summary Plan of Care: Continue with current plan of care Pain Evaluation and Follow-up Pain Reassessment: 0, No pain (11/30/22 142) Nursing notified of patient's pain assessment: Not indicated - pain score 2 or less (11/30/22 1423) Therapy Minutes Individual Concurrent Co-Treat Individual (OT) Time In : 1300 Time Out: 1345 Total Time with Patient (Min): 45 min ROLAND AVENDANO, OT 11/30/2022 CHART CORRECTION: Type of Chart Edit: Addendum Reason for Correction: Additional information added (additional info added to therapeutic activities section) * Plan of Care - Tatianna Pan RN - 11/30/2022 12:41 PM CDT Problem: Infection Goal: Absence of infection and prevention of transmission during hospitalization Outcome: Progressing Flowsheets (Taken 11/30/2022 1241) Absence of infection and prevention of transmission during hospitalization: Assess and monitor for signs and symptoms of infection and vital signs Monitor lab/diagnostic results Administer medications as ordered Problem: Knowledge Deficit Goal: Patient and/or family demonstrate readiness to learn Outcome: Progressing Goal: Patient and/or family verbalizes understanding of education, and/or performs desired skill Outcome: Progressing Problem: Discharge Planning Goal: Discharge to home or other facility with appropriate resources Outcome: Progressing Goal: supervisor engraving will develop a plan to decrease their burden and enhance comfort in role Outcome: Progressing Problem: Pain Goal: Patient's Pain/Discomfort is Manageable Outcome: Progressing Problem: Knowledge Deficit Goal: Patient/family/caregiver demonstrates understanding of disease process, treatment plan, medications, and discharge instructions Outcome: Progressing Problem: Potential for Compromised Skin Integrity Goal: Skin integrity is maintained or improved Outcome: Progressing Goal: Nutritional status is improving Outcome: Progressing Problem: Bowel Incontinence Goal: Perineal Skin Integrity is Maintained or Improved Outcome: Progressing Problem: Knowledge Deficit Goal: Patient and/or family demonstrate readiness to learn Outcome: Progressing Goal: Patient and/or family verbalizes understanding of condition and treatment, education, and/or performs desired skill Outcome: Progressing Problem: Altered neuro status Goal: Achieves stable or improved neurological status Outcome: Progressing Problem: Risk for / Impaired Cognition Goal: Patient has stable or improving cognition Outcome: Progressing Problem: Risk for delirium Goal: Prevents and manages delirium Outcome: Progressing Problem: Risk for / Impaired Communication Goal: Establish communication to meet the patient/caregiver needs Outcome: Progressing Problem: Risk for / Impaired Mobility (Activity Intolerance) Goal: Mobility/activity is maintained at optimum level for patient Outcome: Progressing Problem: Self-Care Deficit Goal: Achieves maximum function and self-care Outcome: Progressing Problem: Risk for / Imbalanced Nutrition Goal: Maintains adequate nutritional intake Outcome: Progressing Problem: Risk for/Anxiety Goal: Demonstrates ability to cope effectively Outcome: Progressing Problem: Risk for/ impaired bladder elimination (bowel/bladder) Goal: Patient has stable or improved bladder elimination Outcome: Progressing Problem: Risk for /Impaired bowel Goal: Patient has stable or improved bowel elimination Outcome: Progressing Problem: Risk for Infection Goal: Absence of infection and prevention of transmission during hospitalization Outcome: Progressing Problem: Risk for / Impaired Skin Integrity Goal: Skin integrity is maintained or improved Outcome: Progressing Problem: Risk for altered SNS response Goal: Reduce risk and mointor for uninhibited response of sympathetic nervous system Outcome: Progressing Problem: Risk for seizure activity Goal: Absence of seizures Outcome: Progressing Goal: Remains free of injury related to seizures activity Outcome: Progressing Problem: Risk for Aspiration Goal: Patient is free of signs of aspiration and the risk of aspiration is decreased Outcome: Progressing Problem: Fall Safety: [place] Precautions Goal: Free from fall injury Outcome: Progressing Problem: Fall Huddle Goal: Free from Fall Injury Outcome: Progressing Problem: Fall Prevention: Neglect/Hemiparesis Bundle Goal: Patient will be free from Fall Injury Outcome: Progressing * PT Treatment Note - Myra Obregon, PT - 11/30/2022 9:45 AM CDT PT Treatment Patient Name: Consuelo Darby Patient Birthdate: 1980 Patient Subjective Report - Pt reports she is ready for therapy session. Pain Assessment Pain Score: 6 - Moderate Pain (11/30/22945) Pain Severity - NRS (Calculated): Moderate (11/30/22945) Pain Location: Head (11/30/22945) Pre-therapy pain intervention required: Patient expressed pain is tolerable/able to proceed (11/30/22945) Pain Interventions Education Provided: Patient (11/30/22945) Non-Pharmacologic Pain Interventions: Distractions, Position/Reposition, Exercise/Activity (11/30/22945) BED MOBILITY: - rolling to R with Ax2, rolling to L with ModA TRANSFERS: - bed<>wc dependent via little lift, demos x2 - sit<>stand with Jorge in //bars GAIT: - in //bars: 4ft, 3x8ft with MaxAx1 and Min-ModA of 2nd person with chair follow. DF assist francisco wrap, LUE sling, abdominal binder, and LLE knee immobilizer with L knee blocking donned for ambulation.Pt required seated rests due to RUE and BLE fatigue after each trial. THERAPEUTIC ACTIVITIES: - LLE PROM and stretching into knee to chest, hip IR/ER, ankle DF/PF, knee flexion extension, hip flexion and hip extension - seated unsupported in wc with heavy R lean, 3x30 seconds trials of maintaining upright posture and cues to reach midline with RUE support as needed PT Treatment Outcomes:: Safety device reapplied PT Summary:: Patient tolerating session well, continues to benefit from ongoing therapy to maximizemobility and safety. PT Summary Plan of Care: Continue with current plan of care Pain Evaluation and Follow-up Pain Reassessment: 6 (reassessed at 1123) (11/30/22 0946) Nursing notified of patient's pain assessment: Primary Nurse (11/30/22 09) Therapy Minutes Individual Concurrent Co-Treat Individual (PT) Time In : 45 Time Out: 1125 Total Time with Patient (Min): 100 min MYRA OBREGON, PT 11/30/2022 * Plan of Care - Kiersten Walker RN - 11/30/2022 4:12 AM CDT Problem: Fall Safety: [place] Precautions Goal: Free from fall injury Outcome: Progressing Flowsheets (Taken 11/30/2022 0412) Free from fall injury: Perform fall risk assessment and identifiers in place (as applicable) Frequent rounding/monitoring Lighting appropriate * [employer] Treatment Note - [facility] - 11/29/2022 1:48 PM CDT Speech Language Pathologist Treatment Patient Name: Consuelo Darby Patient Birthdate: 1980 Patient Subjective Report - Will I repeat the swallow test before I go home? Pain Assessment Pain Context: Therapy Assessment Prior to Treatment (11/29/22 1348) Pain Assessment: None/denies pain (11/29/22 1348) Cognitive Communication: Immediate memory, Orientation, Basic attention, Task persistence and Short-term memory Dysphagia Treatment: Oral care, Other (comment), Swallow strategy training, Dysphagia diet training, Effortful swallow, Kamla maneuver/tongue hold and Vocal cord adduction (Oral movement) Recommended diet: IDDSI 4 - Pureed / NDD1, IDDSI 2 - Mildly Thick / [employer] Thick Liquids and Pills Crushed in IDDSI 4 (Pureed / Extremely Thick) (May have ice chips PRN unsupervised after oral care.) Level of supervision at meals recommended: Assistance with set-up and Monitor at meals and assist as needed Patient/Caregiver Training: Completed with patient, Therapy goals and treatment plan, Cognitive strategies, Communication strategies, Dysarthria, Swallow strategies, Oral hygiene, Current diet and Dysphagia : To be further assessed. ST Narrative:: 1. Patient was seen for therapy in her room, seated in tilt in space wheelchair; alert and cooperative with all tasks. 2. Patient's lunch tray was sitting in front of her untouched because she was not hungry when it arrived. [employer] performed oral care using the V[employer] oral care suction swab prior to patient eating her lunch. 3. Patient was set up with her lunch tray. She was able to feed herself with some reminders required to attend to items on the left. Patient coughed x1 during the meal due to starting to talk before completely swallowing and clearing the oral cavity. No clinical signs of aspiration were noted with mildly thick liquid. 4. Patient performed swallowing exercises with fair effort following a demonstration (effortful swallow, laryngeal strengthening, and hard glottal attack word list). 5. Patient was provided with written information to read and discuss with her regarding theSelect Water Protocol. [employer] explained the protocol and the patient verbalized understanding. 6. Patient remained in her room with call light and phone left within reach. Chair alarm activated. ST Session Outcomes: Patient/family education progressing, Progressing toward STGs, Tolerated treatment well and Minimal cues during session ST Summary Plan of Care: Continue with current plan of care Pain Evaluation and Follow-up Pain Reassessment: 0, No pain (11/29/22 1432) Nursing notified of patient's pain assessment: Not indicated - pain score 2 or less (11/29/22 1432) Therapy Minutes Individual Concurrent Co-Treat Time In : 1348 Time Out: 1435 Breaks/Pauses (Min): 0 mins Total Time with Patient (Min): 47 min Missed Minutes : [address] 11/29/2022 * OT Treatment Note - Bridgett Evangelista, OT - 11/29/2022 1:00 PM CDT Occupational Therapy Treatment Patient Name: Consuelo Darby Patient Birthdate: 1980 Patient Subjective Report - could you please help me wash my hair if we have time? Pain Assessment Pain Context: Therapy Assessment During Treatment (11/29/22 1303) Pain Assessment: None/denies pain (11/29/22 1303) Pain Score: 0 - No pain (11/29/22 1303) Pain Severity - NRS (Calculated): No pain (11/29/22 1303) ADL Training: ADL Training Narrative: GROOMING: Ms. Darby requested to have help with washing her hair this date.Therapist assisted Ms. Darby with washing and drying hair. Increased time to perform while Ms. Darby was slightly reclined in tilt in space wheelchair. Increased safety performed when therapist gently washed/rinsed and towel dried right side of head with wash cloth. Ms. Darby required complete assist with task. Increased time to complete. Complete assistance for brushing hair on left side. Transfer Training: Transfer Narrative: LYING TO SITTING: with maximal assistance on low air loss mattress SIT TO STAND: with dependence from low air loss mattress using Myra flex lift with assist of 2 people BED TO CHAIR TRANSFER: with dependence from low air loss mattress using Myra flex lift with assist of 2 people OT Therapeutic Activity: Endurance: Rest breaks with activity. Cognition: Decreased safety and response time. Treatment, Outcomes and Plan: OT Narrative:: Ms. Darby tolerated tx with rest breaks with activity. She would benefit from continued OT services to work on maximizing functional independence. OT Treatment Outcomes:: Safety device reapplied, Patient tolerated treatment fairly, Patient is progressing toward STG(s), Goals met for this session and Cues needed for safety OT Summary Plan of Care: Continue with current plan of care Pain Evaluation and Follow-up Response to Therapy Interventions: Improved activity tolerance (11/29/22 1345) Pain Reassessment: 0, No pain (11/29/22 1345) Nursing notified of patient's pain assessment: Not indicated - pain score 2 or less (11/29/22 1345) Therapy Minutes Individual Concurrent Co-Treat Individual (OT) Time In : 1300 Time Out: 1345 Total Time with Patient (Min): 45 min BRIDGETT EVANGELISTA, OT 11/29/2022 * Plan of Care - Roland Mas RD - 11/29/2022 12:42 PM CDT Problem: Inadequate Oral Intake Description: Oral food/beverage intake that is less than established reference standards or recommendations based on physiological needs. Related to: dysphagia As evidenced by: need for TF to meet nutritional needs. Goal: Maintain Nutritional Status Outcome: Progressing Flowsheets (Taken 11/29/2022 1241) Meals and Snacks: (pureed with mildly thick liquids) Texture modified diet Enteral and Parenteral Nutrition: (240 mL Jevity 1.5 if po < 50% meals.) -- Medical Food Supplement Therapy: (chocolate Thrive TID) Commercial beverage/Oral nutrition supplement * Plan of Care - Shania Gonsalves RN - 11/29/2022 10:49 AM CDT Problem: Infection Goal: Absence of infection and prevention of transmission during hospitalization Outcome: Progressing Problem: Knowledge Deficit Goal: Patient and/or family demonstrate readiness to learn Outcome: Progressing Goal: Patient and/or family verbalizes understanding of education, and/or performs desired skill Outcome: Progressing Problem: Discharge Planning Goal: Discharge to home or other facility with appropriate resources Outcome: Progressing Goal: supervisor engraving will develop a plan to decrease their burden and enhance comfort in role Outcome: Progressing Problem: Pain Goal: Patient's Pain/Discomfort is Manageable Outcome: Progressing * PT Treatment Note - Kellie Fortunato Luisa, PT - 11/29/2022 9:58 AM CDT PT Treatment Patient Name: Consuelo Darby Patient Birthdate: 1980 Patient Subjective Report - pt reports feeling ok this date. Stated she had some sleep. Pt expressed concern about return to work, her insurance, etc. Notified CM. Pain: 957: no complaints of pain. Bed Mobility Comment: Pt in hospital bed with low air loss mattress- inflated for mobility. Rolls left with cues and min to complete movement. Rolls right with max to manage left side, complete movement. Supine to sit at edge of bed: mat of one and min/mod of another for trunk lift, positioning. Max left leg block with initial sitting to control slide/safety. Mod trunk control. Gait Analysis: Sling to support left UE. [place] wrap to assist left ankle DF. Knee immobilizer for left knee extension. Pt ambulated 5ft x1, 10ft x2 with hemiaide on right. Max on left for trunk support/balance, wt shift. Max to advance and block left leg. Mod initially on right of another then min for balance and cane management. Pt with gradual increase in cane advancement. Cues for upright head control and min to position in neutral. Visual target to maintain neutral head and vision during gait training. W/c follow for safety. Trials/Comments1: Sit to stand up to hemiaide on right: max on left for knee block and lift assist,min/mod on right for lift/balance. Trials/Comments 2: Bed to chair with use of myra-flex stand lift- hands on support for balance and left side positioning into lift. min on left side for safety. cues for upright posture. Wheelchair Analysis: Pt in tilt in space w/c for head and trunk support. Therapeutic Activities and Neuromuscular Re-education: Pt in bed upon arrival. Left leg pulls up into flexion. PROM to left leg in all planes. Active right leg heel slides and low SLR- 15 reps. Rolling left with min assist and right with max assist to put binder on over g-tube. Supine to sit at edge of bed-- low airloss mattress inflated for stability-- max of one and min/modof another. Close knee block on left to control slide and min/mod for trunk control. Pt attempts tostabilize with right UE. Gait training as noted. W/c to mat with use of transfer board toward right: max of one and min of another. Static sitting at edge of mat with min support. At times close stand by once centered. Support for head control and visual tracking toward midline or just past midline. Mat back to w/c with stand pivot: max of one and min of another. In room: use of myra flex for w/c to commode- pt unable to void and use of myra flex for transfer back to bed. PT Treatment Outcomes:: Safety device reapplied PT Summary:: Ms. Darby tolerated the session well. She works hard and is making steady progress. Elbert contacted to set up w/c consult. Plan for consult 12/04. Discussed with pt/. She will continue to benefit from intensive therapy to maximize functional gains. PT Summary Plan of Care: Continue with current plan of care Pain Evaluation and Follow-up Pain Reassessment: 0, No pain (11/29/22 1050) Therapy Minutes Individual Concurrent Co-Treat Individual (PT) Time In : 0958 Time Out: 1138 Total Time with Patient (Min): 100 min KELLIE MORAN, PT 11/29/2022 * Plan of Care - Awilda Gonsalves RN - 11/29/2022 2:23 AM CDT Problem: Discharge Planning Goal: Discharge to home or other facility with appropriate resources Outcome: Progressing Flowsheets (Taken 11/24/2022 0304) Discharge to home or other facility with appropriate resources: Identify barriers to discharge with patient and caregiver Arrange for needed discharge resources and transportation as appropriate Identify discharge learning needs (meds, wound care, etc) Arrange for interpreters to assist at discharge as needed Refer to Case Management Department for Coordinating discharge planning for if the patient needs post-hospital services based on physician order or complex needs related to functional status, cognitive ability or social support system Problem: Pain Goal: Patient's Pain/Discomfort is Manageable Outcome: Progressing Flowsheets (Taken 11/20/2022 014 by Archie Loja, RN) Patient's Pain/Discomfort is Manageable: Assess pain level Include patient/family/caregiver in decisions related to pain management Provide Emotional/Spiritual Support Administer medications as ordered Reassess patient's response and tolerance to discomfort Offer non-pharmocological pain management interventions Assess pain using FLACC, PAINAD or [place] Problem: Potential for Compromised Skin Integrity Goal: Skin integrity is maintained or improved Outcome: Progressing Flowsheets (Taken 11/19/2022 014 by Archie Loja, RN) Skin Integrity is Maintained or Improved: Collaborate with WOCN/Wound Nurse Relieve pressure to bony prominences, avoid shearing Assess skin and skin risk for breakdown Turn Patient Keep skin clean and dry Monitor and teach appropriate hygiene practices * Plan of Care - Awilda Gonsalves RN - 11/29/2022 2:20 AM CDT Problem: Pain Goal: Patient's Pain/Discomfort is Manageable Outcome: Progressing Flowsheets (Taken 11/20/2022 014 by Archie Loja, AMBROSE) Patient's Pain/Discomfort is Manageable: Assess pain level Include patient/family/caregiver in decisions related to pain management Provide Emotional/Spiritual Support Administer medications as ordered Reassess patient's response and tolerance to discomfort Offer non-pharmocological pain management interventions Assess pain using FLACC, PAINAD or [place] * OT Treatment Note - Roland Avendano, OT - 11/28/2022 2:01 PM CDT Occupational Therapy Treatment Patient Name: Consuelo Darby Patient Birthdate: 1980 Patient Subjective Report - I need to pee so badly but I can't (pt sat on commode but was not able to urinate, so nurse did straight cath). Pain Assessment Pain Context: Therapy Assessment Prior to Treatment (11/28/22 1401) Pain Assessment: NRS 0-10 (11/28/22 1401) Pain Score: 0 - No pain (11/28/22 1401) Pain Severity - NRS (Calculated): No pain (11/28/22 1401) ADL Training: ADL Training Narrative: EATING: ORAL HYGIENE: TOILETING: dependent for toileting; completed clothing management and hygiene while supine in bed; assist needed for all aspects. BATHING: UB DRESSING: LB DRESSING: dependent, bed level for don/doffing pants and depends PUTTING ON/TAKING OFF FOOTWEAR: dependent ROLL LEFT AND RIGHT: dependent--two person assist for rolling all the way to the right. SIT TO LYING: dependent, two person assist LYING TO SITTING: dependent, two person assist SIT TO STAND: dependent BED TO CHAIR TRANSFER: dependent, two-three person assist for transfers with Myra Flex lift TOILET TRANSFER: two person assist with use of Myra Flex lift--pt sat on drop arm commode with max assist throughout for balance. Treatment, Outcomes and Plan: OT Narrative:: Ms Darby participated in dressing and toileting tasks during this session. She was unable to urinate while seated on commode, so she was transferred back to bed so nurse could do straight cath. Ms Darby is motivated and cooperative. Continued intensive OT recommended. OT Treatment Outcomes:: Safety device reapplied, Patient tolerated treatment well, Patient is progressing toward STG(s), Goals met for this session, Improved ADL performance and Improved ability to perform functional transfers OT Summary Plan of Care: Continue with current plan of care Pain Evaluation and Follow-up Pain Reassessment: 0, No pain (11/28/22 1401) Nursing notified of patient's pain assessment: Not indicated - pain score 2 or less (11/28/22 1401) Therapy Minutes Individual Concurrent Co-Treat Individual (OT) Time In : 1300 Time Out: 1353 Total Time with Patient (Min): 53 min ROLAND AVENDANO OT 11/28/2022 * [employer] Treatment Note - [facility] - 11/28/2022 1:55 PM CDT Speech Language Pathologist Treatment Patient Name: Consuelo Darby Patient Birthdate: 1980 Patient Subjective Report - Am I able to have ketchup on my eggs? Pain Assessment Pain Context: Therapy Assessment Prior to Treatment (11/28/22 1355) Pain Assessment: None/denies pain (11/28/22 1355) Cognitive Communication: Immediate memory, Orientation, Basic attention and Task persistence Dysphagia Treatment: Oral care, Therapeutic trials, Other (comment), Swallow strategy training and Deep Pharyngeal Neuromusculal Stimulation (Oral movement) Recommended diet: IDDSI 4 - Pureed / NDD1, IDDSI 2 - Mildly Thick / [employer] Thick Liquids and Pills Crushed in IDDSI 4 (Pureed / Extremely Thick) (May have ice chips PRN unsupervised after oral care.) Patient/Caregiver Training: Completed with patient, Therapy goals and treatment plan, Cognitive strategies, Communication strategies, Dysarthria, Swallow strategies, Oral hygiene, Current diet and Dysphagia : To be further assessed. Why is the patient not a candidate for water protocol? Other (comment) ST Narrative:: 1. Patient was seen for therapy in her room, seated in tilt in space wheelchair; alert and cooperative with all tasks. 2. Patient received patterned NMES (PENS) with 10 milliamps on the right side and 7 milliamps on the left side to achieve a muscle twitch for 15 minutes. Electrode placement was on the masseter muscle and cervical paraspinals on each side to provide neuro-reeducation to the swallow pattern to normalize swallow function. Skin was clear and intact upon removal of the electrodes. 3. Patient was instructed in swallowing exercise to improve overall strength of the pharyngeal musculature: Effortful swallow, Kamla, and laryngeal strengthening. Patient performed these exercises with fair effort. Handouts were given to patient. 4. Patient reported that she managed her breakfast well but had to return and reorder her lunch because it was incorrect. Her second lunch tray had not yet arrived. 5. Patient completed two auditory sub tests of the Cognitive Linguistic Quick Test: Generative Naming (named 8 animals in one minute) and Story Retelling (scored 10/10). Plan to complete sub tests aspatient is able to participate. Full results to follow upon completion. 6. Patient remained in her room with call light and phone left within reach. Chair alarm activated. ST Session Outcomes: Patient/family education progressing, Progressing toward STGs, Tolerated treatment well and Minimal cues during session ST Summary Plan of Care: Continue with current plan of care Pain Evaluation and Follow-up Pain Reassessment: 0, No pain (11/28/22 1443) Nursing notified of patient's pain assessment: Not indicated - pain score 2 or less (11/28/22 1443) Therapy Minutes Individual Concurrent Co-Treat Time In : 1355 Time Out: 1443 Breaks/Pauses (Min): 0 mins Total Time with Patient (Min): 48 min Missed Minutes : [address] 11/28/2022 * Team Conference - JESSY Zuniga - 11/28/2022 11:19 AM CDT Team Conference Note Date: 11/28/2022 Time: 9:07 AM CDT Patient Name: Consuelo Darby Date of : 1980 Sex: Female Room/Bed: 303/303-1 Admit Date/Time: 11/17/2022 4:00 PM Patient Active Problem List Diagnosis Date Noted Cerebrovascular accident 11/17/2022 Hypertension 10/19/2022 Team Members Present: Attendees: Yamileth Frias MD, Sandra Land, PharmD, Kellie Moran PT, Shania Gonsalves, RN, Roberto Lee, OT, [facility] Stable Helper in Attendance: JESSY Zuniga Patient/Family Present: Patient Present: No Patient's Family/Caregiver Present: No Anticipated Discharge 12/07/2022 Discharge Plan: Discharge Destination Details : Own Home Back-up Discharge Destination: Own Home Potential Barriers to Return to Prior Living (Use comments to be specific): Capacity for self care;Mobility challenge;Architectural/environmental barrier(s);Home modification challenge;DME issue;Potential need for skills/non- skilled services;Potential need for 24 hour care Clinical Barriers : Clinical needs exceed caregiver capacity;Instability Barriers: straight cathing, total assist x2, dependent for all self care and transfers, DME Recommendations: Tilt n space, hospital bed, drop arm bsc, little, puree diet mildly thick nectar liquids Services Recommended at Discharge: Home Care Outside Plant Field Engineer Training: More training needed with therapy and More training needed with nursing F/U Appointments for Post Discharge: PCP Suicide Risk Assessment: No Concerns identified at this time Pain Management: Pain reported as adequately managed at this time. Medications: Current Facility-Administered Medications: acetaminophen (TYLENOL) tablet 500 mg, 500 mg, Per Tube, Q6H PRN, Nghia Pryor MD, 500 mg at 11/28/22 0835 bisacodyl (DULCOLAX) suppository 10 mg, 10 mg, Rectal, Daily PRN, Nghia Pryor MD cholecalciferol (VITAMIN D3) tablet 2,000 Units, 2,000 Units, Per Tube, Once a day, Nghia Pryor MD, 2,000 Units at 11/28/22 0832 cyclobenzaprine (FLEXERIL) tablet 5 mg, 5 mg, Oral, 3 times per day, Loy Dawson MD, 5 mg at 11/28/22 0832 enoxaparin (LOVENOX) syringe 100 mg, 100 mg, Subcutaneous, Q12H SENDY, Nghia Pryor MD, 100 mg at 11/28/22 0833 guaiFENesin (ROBITUSSIN) 100 MG/5ML liquid 10 mL, 10 mL, Enteral, BID PRN, Nghia Pryor MD hydrocortisone (ANUSOL-HC) 2.5 % rectal cream, , Rectal, 2 times per day, Loy Dawson MD, Given at 11/28/22 0834 hydrOXYzine (ATARAX) tablet 25 mg, 25 mg, Oral, Q6H PRN, Yamileth Frias MD, 25 mg at 11/28/22 0835 lidocaine (LIDOCARE) 4 % patch 1 patch, 1 patch, Transdermal, Once a day, Loy Dawson MD, 1 patch at 11/28/22 0833 loratadine (CLARITIN) tablet 10 mg, 10 mg, Enteral, Once a day, Nghia Pryor MD, 10 mg at 11/28/22 0832 metoprolol tartrate (LOPRESSOR) tablet 25 mg, 25 mg, Enteral, 2 times per day, Nghia Pryor MD, 25 mg at 11/28/22 0832 ondansetron ODT (ZOFRAN-ODT) disintegrating tablet 4 mg, 4 mg, Per Tube, Q6H PRN, Marlee Bradley MD, 4 mg at 11/28/22 0835 oxyCODONE (ROXICODONE) immediate release tablet 5 mg, 5 mg, Enteral, Q4H PRN, Marlee Bradley MD, 5mg at 11/26/222045 pantoprazole-sodium bicarbonate 2mg/ml oral liquid 40 mg, 40 mg, Per Tube, Daily bef breakfast, Marlee Bradley MD, 40 mg at 11/28/22 0530 senna-docusate (SENOKOT-S) 8.6-50 MG tablet 2 tablet, 2 tablet, Enteral, Daily PRN, Nghia Pryor MD simethicone (MYLICON) chewable tablet 80 mg, 80 mg, Per Tube, BID PRN, Marlee Bradley MD, 80 mg at11/26/22 1246 tamsulosin (FLOMAX) 24 hr capsule 0.4 mg, 0.4 mg, Enteral, After Breakfast, Nghia Pryor MD, 0.4 mg at 11/28/22 0832 triamcinolone (KENALOG) 0.1 % ointment, , Apply externally, BID PRN, Nghia Pryor MD, Given at 11/20/222014 verapamil (CALAN) tablet 40 mg, 40 mg, Enteral, Q8H SENDY, Nghia Pryor MD, 40 mg at 11/28/22 0529 Warfarin Per Policy, , Does not apply, Daily, Nghia Pryor MD Pharmacy: Latest Pharmacy IDT Documentation Value Time User Medications Reviewed: Considerations for Discharge 11/21/2022 10:03 AM Sandra Land, ManuelD Documented cosiderations for discharge: Pain; Antimicrobials; Special Meds/Others 11/21/2022 10:03 AM Sandra Land PharmD Current antimicrobials: Medications Related to Antimicrobial Stewardship Dose/Rate Route Frequency Stop doxycycline (VIBRAMYCIN/MONODOX) capsule 100 mg 100 mg Enteral 2 times per day 11/22/222058 meropenem (MERREM) 2 g in sodium chloride 0.9 % 140 mL IVPB 2 g 280 mL/hr over 30 Minutes Intravenous Every 8 hours (Interval) 11/22/22195811/21/2022 10:03 AM Sandra Land, [place] Current pain medications: Medications Related to Management of Pain acetaminophen (TYLENOL) tablet 500 mg, 500 mg, Per Tube, Q6H PRN, Nghia Pryor MD, 500 mg at 11/20/22 0610 oxyCODONE (ROXICODONE) immediate release tablet 5 mg, 5 mg, Enteral, Q4H PRN, Marlee Bradley MD, 5 mg at 11/21/22 0115 11/21/2022 10:03 AM Sandra Land PharmD Considerations to be discussed: warfarin 11/21/2022 10:03 AM Sandra Land PharmD Inpatient Morphine Milligram Equivalents Per Day 11/21 - 11/29 Values displayed are in units of MME/Day Order Start / End Date 11/21 11/22 11/23 11/24 11/25 11/26 Yesterday Today Tomorrow Daily Totals Unknown of Unknown Unknown of Unknown Unknown of Unknown Unknown of Unknown Unknown ofUnknown Unknown of Unknown 0 of Unknown 0 of Unknown 0 of Unknown oxyCODONE (ROXICODONE) immediate release tablet 5 mg 11/18 - No end date Unknown of Unknown Unknown of Unknown Unknown of Unknown Unknown of Unknown Unknown of Unknown Unknown of Unknown 0 of Unknown 0of Unknown 0 of Unknown Calculation Errors Order Type Date Details oxyCODONE (ROXICODONE) immediate release tablet 5 mg Ordered Dose -- No morphine equivalence factorfound for OXYCODONE HCL 5 MG PO TABS [[id number]] and route Enteral [125] Administered Dose 11/21/22 No morphine equivalence factor found for OXYCODONE HCL 5 MG PO TABS [[id number]] and route Enteral [125] 11/22/22 No morphine equivalence factor found for OXYCODONE HCL 5 MG PO TABS [[id number]] and route Enteral [125] 11/23/22 No morphine equivalence factor found for OXYCODONE HCL 5 MG PO TABS [[id number]] and route Enteral [125] 11/24/22 No morphine equivalence factor found for OXYCODONE HCL 5 MG PO TABS [[id number]] and route Enteral [125] 11/25/22 No morphine equivalence factor found for OXYCODONE HCL 5 MG PO TABS [[id number]] and route Enteral [125] 11/26/22 No morphine equivalence factor found for OXYCODONE HCL 5 MG PO TABS [[id number]] and route Enteral [125] Nursing Team Conference: Bladder Continent: Incontinent Bowel Continent: Incontinent Pain: Patient verbalizes pain Pain Education Provided: Patient Pain Pharmacologic Treatments: Medicated - see MAR Opiate Use Anticipated After Discharge: Possible Nutrition Intake: Oral Nutrition Level of Assistance: Maximum assistance Nutrition Interventions: Modified consistency Respiratory O2 Delivery System: None Safety Status: Follows instructions Cognitive Orientation: Person;Place;Time;Date Cognitive Deficits Observed: Delayed responses Quality of Sleep: Restful Is patient on dialysis?: No PT Weekly Progress Note PT Weekly Progress Note by Kellie Moran PT at 11/27/2022 3:23 PM Author: Kellie Moran PT Service: Therapy Author Type: Container Repairer Filed: 11/27/2022 3:57 PM Date of Service: 11/27/2022 Legal Coordinator: Kellie Moran PT (Container Repairer) PT Weekly Progress Note Patient Name: Consuelo Darby Patient Birthdate: 1980 PT CURRENT FUNCTIONAL STATUS: PT Current Functional Status: PT Current Functional Status: Ms. Darby's functional status as follows: PRECAUTIONS: helmet on when up out of bed, tube feeding. TONE: increasing flexor tone noted in left UE/LE. Clonus at times in left leg. Able to passively obtain full range at hip/knee and just past neutral in ankle. BED MOBILITY: Sit to/from supine with max assist of one, min of another for left side assist, trunk control. Pt does attempt to assist with right side. Rolling with to left with cues and min assist to complete motion. To left: max/total assist to bring left side. TRANSFERS Pt on low air loss mattress for pressure relief/positioning. Use of little for bed to chair transfers for safety in room. Sit to/from stand from w/c with max of one for left knee block, lift assist. Min of another for trunk control. Stand pivot with max of one and mod of another for trunk control. Max left knee block. Improves some going right vs left due to left inattention/visual tracking deficits left. Have tried w/c to/from level mat with use of transfer board: max of one to block left leg, lift at hips/trunk support. Mod of another for lift assist, trunk control. Car transfer: not safe to attempt at this time. GAIT Sling to support left UE, francisco wrap to facilitate left ankle DF Ambulates with right UE support on parallel bars: 10ft x2 with max assist of one anteriorly to advance and block left leg, trunk control, wt shift right. Min/mod of another for trunk control, close w/c follow. Deviations: decreased midline orientation- gradual list left. Able to shift right but difficutly maintaining. Sequencing cues. Right gaze preference. Head control varies- at times min for positioning. Unsafe to attempt ambulation 10, 50',150' outside of parallel bars at this time. Ambulates 10' on compliant surfaces: not safe to attempt Unsafe to retrieve object from floor STAIRS Acscends/descends 1,4, 12 steps unsafe to attempt at this time WHEELCHAIR MOBILITY Pt in tilt in space w/c for trunk control, head control. Left half lap tray for UE support. Trialed pt in regular light wt w/c: pt with left trunk lean and posterior lean/fair head control- requires min/mod head control support at times. Attempted to initiate w/c propulsion with right arm/leg: max assist to control left side, guidance due to right gaze preference, left inattention, decreased visual tracking past midline on left. Propelled 60ft. Max/Total to go 150ft. End of session required repositioning back into tilt in space w/c due to poor tolerance for trunk control, head control for any extended period in regular w/c. Requires increased trunk support for positioning, head support. OUTCOME MEASURES: AGITATED BEHAVIOR SCALE 16 POSTURAL ASSESSMENT OF STROKE 10 METER WALK TEST- not able to attempt PROGRESS: Ms. Darby is making progress with therapy. She works hard and will continue to benefit from intensive therapy to maximize functional gains. She is improving with sitting balance, upright tolerance/out of bed. Trialed upright regular w/c this date vs tilt in space. Decreased tolerance for maintaining upright trunk and head control- still recommend use of tilt in space w/c for appropriatesupport and safety. Noted left inattention and decreased ability to track objects left- slight improvement. Has prisms on her glasses to help facilitate left tracking. DME Recommendations Common Therapy DME: Hospital Bed, Specialty Mattress, Transfer Board, Manual Lift, Manual Wheelchair (contacted [employer] regarding specialty w/c for home use) Hospital Bed - Type: Semi-Electric Hospital bed Manual Lift: Sling Lift Specialty Mattres - Type: Low Air Loss Transfer Board - Type: 24 in without cutout CARE Score Fields: 6: Independent. [place] provides no assistance with tasks. A device may or may not have been used. 5: Set-up or clean-up assistance. [place] sets up or cleans up, but does not assist with tasks. [place] may have assisted prior to or following the activity. 4: Supervision or touching assistance. [place] provides verbal cues or touching/steadying or contactguard assistance. Assistance may be provided throughout the activity or intermittently. 3: Partial/moderate assistance. [place] does less than half the effort. [place] lifts, holds, or supports trunk or limbs, but provides less than half the effort. 2: Substantial/maximal assistance. [place] does more than half the effort. [place] lifts or holds trunk or limbs, and provides more than half the effort. 1: Dependent. [place] does all of the effort, or the assistance of two or more helpers is required for the patient to complete the activity. -: Inconsistent or incomplete documentation Activity not attempted values: 7: Patient refused 9: Not applicable - Not attempted and the patient did not perform this activity prior to the current illness, exacerbation, or injury. 10: Not attempted due to environmental limitations (e.g., lack of equipment, weather constraints) 88: Not attempted due to medical condition or safety concerns Ranch Helper Goals: Goal Status on Admission Current Status Car Transfer LTG: Partial/moderate assistance (Patient will complete car transfer with moderate assist to be able to transport in a personal vehicle.) Car Transfer - CARE Score: 88 (11/18/22 1006 : Roxanne Goldberg, PT) Car Transfer - CARE Score: 88 (11/27/22 155) Walk 10 Feet - CARE Score: 88 (11/18/22 1006 : Roxanne Goldberg, PT) Walk 10 Feet - CARE Score: 88 (11/27/22 1556) Walk 50 Feet with Two Turns - CARE Score: 88 (11/18/22 1006 : Roxanne Goldberg, PT) Walk 50 Feet with Two Turns - CARE Score: 88 (11/27/221555) Walk 150 Feet - CARE Score: 88 (11/18/22 100 : Roxanne Goldberg PT) Walk 150 Feet - CARE Score: 88(11/27/221555) Walking 10 Feet on Uneven Surfaces - CARE Score: 88 (11/18/22 100 : Roxanne Goldberg PT) Walking 10 Feet on Uneven Surfaces - CARE Score: 88 (11/27/221555) 1 Step (Curb) - CARE Score: 88 (11/18/22 100 : Roxanne Goldberg PT) 1 Step (Curb) - CARE Score: 88(11/27/221555) 4 Steps - CARE Score: 88 (11/18/221005 : Roxanne Goldberg PT) 4 Steps - CARE Score: 88 (11/27/221555) 12 Steps - CARE Score: 88 (11/18/221005 : Roxanne Goldberg PT) 12 Steps - CARE Score: 88 () Picking Up Object - CARE Score: 88 (11/18/22 100 : Roxanne Goldberg PT) Picking Up Object - CARE Score: 88 (11/27/221555) Wheel 50 Feet with Two Turns LTG: Supervision or touching assistance (Patient will be able to wheel50 ft including navigating the environment with touching assistance.) Wheel 50 Feet with Two Turns - CARE Score: 88 (11/18/221005 : Roxanne Goldberg PT) Wheel 50 Feet with Two Turns - CARE Score: 2 (11/27/221555) Wheel 150 Feet - CARE Score: 88 (11/18/221005 : Roxanne Goldberg PT) Wheel 150 Feet - CARE Score: 2 (11/27/221555) Additional Goals & Status: N/A PT Other Ranch Helper Goals Flowsheet Row Most Recent Value Other PT Mcfp Goals Other Goals - Ranch Helper Mcfp 1, Mcfp 2 Filed on: 11/18/2022 1057 Other Mcfp Goal 1 Patient will complete transfers with moderate assist of one person. Filed on: 11/18/2022 1057 Other Mcfp Goal 1 Status Established Filed on: 11/18/2022 1057 Other Ranch Helper Goal 2 Patient will complete bed mobility including rolling and supine<> sit transitions with minimal assistance. Filed on: 11/18/2022 1057 Other Ranch Helper Goal 2 Status Established Filed on: 11/18/2022 1057 Expected Achievement Date 12/15/22 Filed on: 11/18/2022 1057 PT Short Term Goal 1: Focus: Other Details: Patient will be able to tolerate being out of bed and seated in her wheelchair for increased engagement within therapy session. Expected Achievement Date: 11/25/2022 Goal Status: Achieved PT Short Term Goal 2: Focus: Other (Bed mobility) Level of Assistance to Meet Short Term Goal: Physical assistance 75% or more Details: Patient will complete rolling in bed with maximal assist of one. Expected Achievement Date: 12/04/2022 Status: Partially Achieved PT Short Term Goal 3: Level of Assistance to Meet Short Term Goal: Total assistance Details: Patient will be able to complete sit <> supine transitions with two person moderate assist. Expected Achievement Date: 12/04/2022 Status: Partially Achieved PT Short Term Goal 4: Details: Pt w/c to mat with stand pivot and max assist of one. Expected Achievement Date: 12/04/2022 Goal Status: Established Duration Expiration Date: 12/17/2022 KELLIE MORAN, PT 11/27/2022 OT Weekly Progress Note OT Weekly Progress Note by Bridgett Evangelista OT at 11/27/2022 3:24 PM Author: Bridgett Evangelista OT Service: -- Author Type: Occupational Therapist Filed: 11/27/2022 3:31 PM Date of Service: 11/27/2022 Legal Coordinator: Bridgett Evangelista OT (Occupational Therapist) Occupational Therapy Weekly Progress Note Patient Name: Consuelo Darby Patient Birthdate: 1980 OT Current Functional Status: Ms. Darby's current status is as follows (per documentation and observation): EATING: NPO, on tube feeding with G tube ORAL HYGIENE: with supervision with vinicius suction toothbrush TOILETING: with dependence, 2 person assist with use of Myra flex lift SHOWER/BATHING: with dependence, required assistance for all aspects of bathing tasks at bed level.Will use right UE to hole washcloth to wash face. UPPER BODY DRESSING: with dependence with pullover shirt LOWER BODY DRESSING: with dependence with all aspects of lower body dressing either at bed level orwith use of Myra flex lift FOOTWEAR: with dependence with all aspects of footwear ROLL LEFT/RIGHT: with dependence SIT TO LYING: not performed with OT due to safety concerns on low air loss mattress LYING TO SITTING: not performed with OT due to safety concerns on low air loss mattress SIT TO STAND: with dependence using Myra flex lift, per PT pt able to perform in parallel bars withleft knee blocked. BED TO CHAIR TRANSFER: with dependence, use of myra flex lift or little lift, 2 person assist with transfer TOILET TRANSFER: with dependence, use of myra flex lift in w/c or little lift from low air loss mattress, requires assist of 2 with transfer. Ms. Darby requires increased time to process directions and has been more alert during tx session. Decreased c/o pain during sessions noted. Ms. Darby continues to present with right side gaze preference requiring cues to turn head towards left. No active movement noted in left UE, however, increased tightness in left shoulder. Ms. Darby has made progress towards endurance and pain tolerance as we ll as ability to tolerate myra flex lift for transfer. Ms. Darby continues to be limited in selfcare, transfers, balance, endurance, left UE function, cognition, visual perception and would benefit from continued OT services to work on maximizing functional independence. Facilitating Factors in Goal Achievement: Patient compliance, Patient motivation, Support of familyor caregiver, Improved cognition and Decrease in pain Barriers to Goal Achievement: Pain, ROM limitations, Strength limitations, Balance deficits, Motor control deficits, Diminished endurance, Decreased safety awareness, Cognitive deficits and Visual deficits Date Last Assessed: 11/27/2022 Patient needs assistance with the following activities: Activities of daily living, Vision, Going out in the community, Use of bathroom equipment, Memory, Use of patient user experience manager, Rolling, Head control, Positioning, Reaching and Sitting balance Will patient require a prosthetic or orthotic device upon discharge: No CARE Score Fields: 6: Independent. [place] provides no assistance with tasks. A device may or may not have been used. 5: Set-up or clean-up assistance. [place] sets up or cleans up, but does not assist with tasks. [place] may have assisted prior to or following the activity. 4: Supervision or touching assistance. [place] provides verbal cues or touching/steadying or contactguard assistance. Assistance may be provided throughout the activity or intermittently. 3: Partial/moderate assistance. [place] does less than half the effort. [place] lifts, holds, or supports trunk or limbs, but provides less than half the effort. 2: Substantial/maximal assistance. [place] does more than half the effort. [place] lifts or holds trunk or limbs, and provides more than half the effort. 1: Dependent. [place] does all of the effort, or the assistance of two or more helpers is required for the patient to complete the activity. -: Inconsistent or incomplete documentation Activity not attempted values: 7: Patient refused 9: Not applicable - Not attempted and the patient did not perform this activity prior to the current illness, exacerbation, or injury. 10: Not attempted due to environmental limitations (e.g., lack of equipment, weather constraints) 88: Not attempted due to medical condition or safety concerns Mcfp Goals: Goal Status on Admission Current Status Eating LTG: Supervision or touching assistance Eating - CARE Score: 88 (11/18/22 1252 : Roland Eubanks OT) Eating - CARE Score: 88 (11/27/22 152) Oral Hygiene LTG: Supervision or touching assistance Oral Hygiene - CARE Score: 2 (11/18/22 1252 : Roland Avendano OT) Oral Hygiene - CARE Score: 4 (11/27/22 1524) Toileting Hygiene LTG: Partial/moderate assistance Toileting Hygiene - CARE Score: 1 (11/18/22 1252: Roland Avendano OT) Toileting Hygiene - CARE Score: 1 (11/27/22 1524) Shower/Bathe Self LTG: Partial/moderate assistance Shower/Bathe Self - CARE Score: 1 (11/18/22 1252: Roland Avendano OT) Shower/Bathe Self - CARE Score: 1 (11/27/22 1524) Upper Body Dressing LTG: Partial/moderate assistance Upper Body Dressing - CARE Score: 1 (11/18/22 1252 : Roland Avendano OT) Upper Body Dressing - CARE Score: 1 (11/27/22 1524) Lower Body Dressing LTG: Partial/moderate assistance Lower Body Dressing - CARE Score: 1 (11/18/22 1252 : Roland Avendano OT) Lower Body Dressing - CARE Score: 1 (11/27/22 152) Putting On/Taking Off Footwear LTG: Partial/moderate assistance Putting On/Taking Off Footwear - CARE Score: 1 (11/18/22 1252 : Roland Avendano OT) Putting On/Taking Off Footwear - CARE Score: 1 (11/27/22 152) Roll Left and Right - CARE Score: 1 (11/18/22 1252 : Roland Avendano OT) Roll Left and Right - CARE Score: 1 (11/27/22 152) Sit to Lying - CARE Score: 88 (11/18/22 1252 : Roland vAendano OT) Sit to Lying - CARE Score:88 (11/27/22 152) Lying to Sitting on Side of Bed - CARE Score: 88 (11/18/22 1252 : Roland Avendano OT) Lying to Sitting on Side of Bed - CARE Score: 88 (11/27/22 152) Sit to Stand - CARE Score: 88 (11/18/22 1252 : Roland Avendano OT) Sit to Stand - CARE Score:1 (11/27/22 152) Chair/Ijj-se-Gxagt Transfer LTG: Partial/moderate assistance Chair/Aco-fl-Kgpfh Transfer - CARE Score: 1 (11/18/22 1252 : Roland Avendano OT) Chair/Eck-nh-Xwsvp Transfer - CARE Score: 1 (11/27/221523) Toilet Transfer LTG: Partial/moderate assistance Toilet Transfer - CARE Score: 88 (11/18/22 1252 : Roland Avendano OT) Toilet Transfer - CARE Score: 1 (11/27/221523) Additional Goals & Status: N/A OT Short Term Goal 1: Focus: Toileting Hygiene Level of Assistance to Meet Short Term Goal: Physical assistance 50%-74% Expected Achievement Date: 12/04/2022 Goal Status: Not Achieved OT Short Term Goal 2: Focus: Shower/Bathe Level of Assistance to Meet Short Term Goal: Physical assistance 50%-74% Expected Achievement Date: 12/04/2022 Goal Status: Not Achieved OT Short Term Goal 3: Focus: Upper Body Dressing Level of Assistance to Meet Short Term Goal: Physical assistance 50%-74% Expected Achievement Date: 12/04/2022 Goal Status: Not Achieved OT Short Term Goal 4: Focus: Lower Body Dressing Level of Assistance to Meet Short Term Goal: Physical assistance 50%-74% Expected Achievement Date: 12/04/2022 Goal Status: Not Achieved OT Short Term Goal 5: Focus: Chair/Bed Transfer Level of Assistance to Meet Short Term Goal: Physical assistance 50%-74% Expected Achievement Date: 12/04/2022 Goal Status: Not Achieved OT Short Term Goal 6: Focus: Toilet Transfer Level of Assistance to Meet Short Term Goal: Physical assistance 50%-74% Expected Achievement Date: 12/04/2022 Goal Status: Not Achieved Duration Expiration Date: 12/16/2022 BRIDGETT EVANGELISTA OT 11/27/2022 [employer] Weekly Progress Note [employer] Weekly Progress Note by ST Mehdi at 11/27/2022 5:19 PM Author: ST Mehdi Service: Therapy Author Type: Speech and Language Pathologist Filed: 11/27/2022 5:40 PM Date of Service: 11/27/2022 Legal Coordinator: ST Mehdi (Speech and Language Pathologist) Related Notes: Original Note by ST Mehdi (Speech and Language Pathologist) filed at 11/27/2022 5:34 PM Speech Language Pathologist Weekly Progress Note Patient Name: Consuelo Darby Patient Birthdate: 1980 [employer] Current Functional Status: Ms. Darby is a 42 year-old female referred to speech therapy for evaluation and treatment followingrecent hospitalization with a diagnosis of stroke. Past medical history is significant for abdominal pain right upper quadrant, hemiplegic migraine, GERD, HTN. Prior to referral for a rehabilitation a dmission, patient did not require assistance for household ambulation, community level ambulation or self-care activities. 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 Ms. Darby's current functional status is as follows: SWALLOWING: MBS was completed on 11/27/22 with results as follows: Swallow initiation was timely with only trace pharyngeal residue observed. Aspiration noted with thin liquids taken both via teaspoon and via cup. Immediate cough followed. No laryngeal penetration nor aspiration were observed with any other consistency. Patient presented with reduced mastication of the solid texture (cracker) due to left facial weakness. Solid pieces of the bolus remained unchewed. TREATMENT RECOMMENDATIONS-- 1. Begin PUREED texture diet (IDDSI 4) 2. Begin MILDLY THICK/NECTAR LIQUIDS (IDDSI 2) 3. Medications crushed in puree 4. May have ice chips 1-2 at a time as requested. Patient may have ice chips without direct supervision; remove melted ice from the room. 5. Upright for all PO intake 6. Slow rate during meals; Small bites/sips 7. Assist with set-up of tray. Monitor with meals and assist as needed. 8. Oral care following meals Oral movements of the labial and lingual muscles remain impaired; however, improvement has been noted with slightly better labial and lingual protrusion, retraction, etc. Recommend a follow-up MBS inone week. [employer] to initiate the SM Water Protocol. COMPREHENSION: Improved to SUPERVISION. Patient is able to comprehend information regarding basic needs over 90% of the time. Increased difficulty noted with complex or abstract information. Patient presents with left inattention. EXPRESSION: Improved to SUPERVISION. Patient is able to express information regarding basic needs over 90% of the time. Significant improvement noted in speech production with improved overall intelligibility. SOCIAL INTERACTION: MODIFIED INDEPENDENT. Patient interacts appropriately most of the time. She presents with flat affect and reduced initiation. She presents with left side inattention which affectssocial interactions. PROBLEM SOLVING: Improved to MINIMAL ASSISTANCE. Patient solves routine problems at least 75% of the time. Not formally assessed at this time. MEMORY: MINIMAL ASSISTANCE. Patient is able to recognize and remember people, routines, and requests at least 75% of the time. Not formally assessed at this time. PROGRESS 11/20/22: Evaluation was completed on 11/18/22. All goals remain appropriate at this time dueto limited number of sessions thus far. PROGRESS 11/27/22: Ms. Darby has made significant improvement this week in therapy. A MBS was completed and recommendation made to begin a PO diet of Pureed food items with Mildly Thick Liquids. Patient's speech intelligibility has improved so that she is fully intelligible. Improvement noted in functional problem-solving skills for routine daily tasks. She is able to remember familiar people and events at least 75% of the time. Overall endurance and participation in therapy tasks is improved. RECOMMENDATIONS: Ms. Darby will benefit from continued speech therapy services to address the following plan of care: compensatory strategy training; interventions to improve swallowing function to manage least restrictive diet and liquid textures; cognitive and communicative retraining to increased safety and independence upon discharge; and patient/family training and education. Consuelo Darby: [ ]is able to state 2 risk factors without VCs prior to discharge [ ]requires cues to recall 2 stroke risk factors [ X] Is unable to state stroke risk factors due to communication or cognitive deficits; Education not yet completed. Facilitating Factors in Goal Achievement: Patient compliance, Patient understanding and knowledge, Progress to date, Improvement in swallow function, Improvement in cognitive skills and Improvement in communication skills Barriers to Goal Achievement: Communication deficits and Other (comment) (cognition; dysphagia) Date Last Assessed: 11/27/2022 Mcfp Goals: Goal Status on Evaluation Current Progress Towards Goal Level of Assistance to Meet Auditory Comprehension: Standby (less than 10%) Auditory Comprehension Details: Demonstrate auditory comprehension of complex questions, directions, and conversation to meet needs, complete tasks and interact socially with others within functionalliving environments Auditory Comprehension Expected Achievement Date: 12/02/22 Minimal assistance Achieved at supervision level Level of Assistance to Meet Memory: Standby (less than 10%) Memory Details: Demonstrate functional memory skills for recall of information relating to people, routines, overall health, and safety within functional living environments Memory Expected Achievement Date: 12/02/22 Minimal assistance Continue to address Level of Assistance to Meet Motor Speech: Min assist (10-24%) Motor Speech Details: Demonstrate functional speech intelligibility in multiple environments through self monitoring and implementation of newly learned strategies and exercises Motor Speech Expected Achievement Date: 12/02/22 Moderate assistance Achieved at supervision level Level of Assistance to Meet Swallowing: Standby (less than 10%) Swallowing Details: Safely consume a regular diet with all liquids with no overt signs or symptoms of aspiration or post swallow distress Swallowing Expected Achievement Date: 12/02/22 NPO for solids and liquids IDDSI 4/2 Additional Goal Status: N/A [employer] Short Term Goals: Auditory Comprehension: Level of Assistance to Meet Auditory Comprehension: Standby (less than 10%) Details: Answer complex yes/no questions with 90% acc Expected Achievement Date: 12/04/2022 Goal Status: Partially Achieved Memory: Level of Assistance to Meet Memory: Min assist (10-24%) Details: Recall 3-4 events from PT and OT sessions Expected Achievement Date: 12/04/2022 Goal Status: Partially Achieved Additional Cognition: Level of Assistance to Meet Additional Cognition: Min assist (10-24%) Details: Complete visual attention tasks with 80% acc Expected Achievement Date: 12/04/2022 Goal Status: Not Achieved Motor Speech: Level of Assistance to Meet Motor Speech: Mod assist (25-49%) Details: Increase maximum phonation time to 10 seconds Expected Achievement Date: 12/04/2022 Goal Status: Partially Achieved Swallowing: Level of Assistance to Meet Swallowing: Standby (less than 10%) Details: Improve OHAT score to zero, initiate SMWP as appropriate Expected Achievement Date: 12/04/2022 Goal Status: Partially Achieved Other STG 1: Focus: Motor Speech Level of Assistance to Meet Other STG 1: Independent Details: State three speech intelligibility strategies Expected Achievement Date: 11/27/2022 Goal Status: Achieved Other STG 2: Focus: Motor Speech Level of Assistance to Meet Other STG 2: Min assist (10-24%) Details: Demonstrate use of strategies at the phrase level Expected Achievement Date: 11/27/2022 Goal Status: Achieved Other STG 3: Focus: Swallowing Level of Assistance to Meet Other STG 3: Standby (less than 10%) Details: Tolerate PO trials ice chips, thickened liquids with <10% overt clinical signs/symptomsaspiration or post-swallow distress Expected Achievement Date: 11/27/2022 Goal Status: Achieved Other STG 4: Focus: Swallowing Details: Safely manage current diet (IDDSI 4/2) and trials of upgraded solids as appropriate with no clinical signs of dysphagia. Expected Achievement Date: 12/04/2022 Goal Status: Established Other STG 5: Focus: Swallowing Details: Perform swallowing exercises following a model with minimal assistance. Expected Achievement Date: 12/04/2022 Goal Status: Established Duration Expiration Date: 12/15/[address] 11/27/2022 Respiratory Team Conference: Nutrition Team Conference: Dietary Orders (From admission, onward) Start Ordered 11/27/22 1516 Adult Diet Regular; 4 Pureed (NDD I); 2 Mildly Thick ([employer]) Diet effective now End/Expires: Until Specified References: IDDSI Website Question Answer Comment Diet Type: Regular Diet Texture: 4 Pureed (NDD I) Liquid Consistency: 2 Mildly Thick ([employer]) Place order in third green party system. Done 11/27/22 1515 Height: 5' 4 (162.6 cm) Admit Weight: 198 lb (89.8 kg) Current Weight: 198 lb (89.8 kg) Body mass index is 33.99 kg/m??. Calorie Count: Plan of Care - Nutrition Care Plans 1 Author: Ronda Monreal RD Service: -- Author Type: Registered Dietitian Filed: 11/24/2022 3:04 PM Date of Service: 11/24/2022 3:04 PM Status: Signed Legal Coordinator: Ronda Monreal RD (Registered Dietitian) Problem: Inadequate Oral Intake Description: Oral food/beverage intake that is less than established reference standards or recommendations based on physiological needs. Related to: dysphagia As evidenced by: need for TF to meet nutritional needs. Goal: Maintain Nutritional Status Outcome: Progressing Flowsheets (Taken 11/20/[address]) Enteral and Parenteral Nutrition: Enteral nutrition Wound: Cosigned by Yamileth Frias MD at 11/28/2022 2:46 PM CDT Associated attestation - Yamileth Frias MD - 11/28/2022 3:46 PM EDT A team conference was held on 11/28/2022 and included members of the multidisciplinary team identified in the attendance section of this note. Issues related to Ms. Parkers status include; Patient Active Problem List Diagnosis Cerebrovascular accident Hypertension Ms. Washburn progress toward rehabilitation goals, impediments to attaining these goals, and associated revisions to the treatment plans and goals were discussed by the team. Details of this multidisciplinary process are included below. Issues of particular significance at this time regarding Ms. Darby's progress towards rehabilitation goals and treatment plan include: Discussed about functional gains , discharge planning ,DME , follow up therapies and current medical condition during team conference . As discussed during this team conference, I concur with the decisions set forth by the members of the multidisciplinary team. Ms. Darby continues to require frequent physician visits and 24 hours perday acute rehabilitation nursing care in order to meet medical needs and progress toward the achievement of the rehabilitation goals. YAMILETH FRIAS MD 11/28/2022 2:46 PM CDT * PT Treatment Note - Kellie Moran, PT - 11/28/2022 9:45 AM CDT PT Treatment Patient Name: Consuelo Darby Patient Birthdate: 1980 Patient Subjective Report - pt reports feeling ok this date, ready for therapy. Pain Assessment Pain Context: Therapy Assessment Prior to Treatment (11/28/22944) Pain Assessment: None/denies pain (11/28/22944) Bed Mobility Comment: Pt in hospital bed on low air loss mattress. Mattress max inflated for support with mobility. Rolls left with cues and min assist to complete motion Rolls right with max assist to complete movement, support left side. Supine to sit with max assist of one and min of another for support to sit at edge of bed, control slide at edge. Gait Analysis: Helmet on when up Sling to support left UE. Strap support at posterior hip: pt ambulated 5ft x2 with max assist of one and min of another at trunk, w/c follow. Max assist to advance and block left leg, sequencing cues for right grasp on bars, support to control left lean, facilitate midline positioning/wt shift right. Distance limited due to fatigue. Trials/Comments1: Bed to chair with use of myra-flex stand lift- assist of two for lift/control left list. cues for maintaining upright stance when getting tired. Trials/Comments 2: With right UE on parallel bar: max of one for left leg block, lift assist/balance. Therapeutic Activities and Neuromuscular Re-education: Pt supine in bed upon arrival. Pt with multi-podus foot splint on left leg. Splint removed- PROM to left leg in all planes. Notedincreased tone with initial stretch into full extension. Flexor tone at times with exertion. Rolls as noted Supine to sit with Max of one and min of another. Max left knee block in sitting to control slide, and mod trunk control. Use of right bedrail for right grasp. Cues for midline, wt shift right. Use of myra-flex for transfer to stance from edge of mat- static stance x 60 seconds then positioned onto bedside commode. Attempt to void but unable to urinate. MD and RN notified. Use of myra flex again for stance x60 seconds and transfer to tilt in space w/c. Ambulation as noted in parallel bars. Then use of sit to stand sports athletic trainer with 20lb lift assist, min/mod on left for trunk control with coming to stance, control list left. Repeated x5 reps then static stance x30 seconds. In stance: visual track to object in midline then mod assist to bring head to midline while maintaining fixation. Ableto hold briefly then right gaze preference. Repeated x2. PT Treatment Outcomes:: Safety device reapplied and Patient tolerated treatment well PT Summary:: Pt tolerated the session well. She works hard at upright positioning, tolerance,scanning left. Fatigues requiring use of tilt in space w/c for trunk and head support. She will continue to benefit from intensive therapy to maximize functional gains. PT Summary Plan of Care: Continue with current plan of care Pain Evaluation and Follow-up Pain Reassessment: 0, No pain (11/28/22 1045) Therapy Minutes Individual Concurrent Co-Treat Individual (PT) Time In : 0945 Time Out: 1115 Total Time with Patient (Min): 90 min KELLIE MORAN, PT 11/28/2022 * Plan of Care - Shania Gonsalves RN - 11/28/2022 7:52 AM CDT Problem: Infection Goal: Absence of infection and prevention of transmission during hospitalization Outcome: Progressing Problem: Knowledge Deficit Goal: Patient and/or family demonstrate readiness to learn Outcome: Progressing Goal: Patient and/or family verbalizes understanding of education, and/or performs desired skill Outcome: Progressing Problem: Discharge Planning Goal: Discharge to home or other facility with appropriate resources Outcome: Progressing Goal: supervisor engraving will develop a plan to decrease their burden and enhance comfort in role Outcome: Progressing * Plan of Care - Kiersten Walker RN - 11/28/2022 1:38 AM CDT Problem: Fall Safety: [place] Precautions Goal: Free from fall injury Outcome: Progressing Flowsheets (Taken 11/28/2022 0138) Free from fall injury: Perform fall risk assessment and identifiers in place (as applicable) Frequent rounding/monitoring Lighting appropriate * [employer] Weekly Progress Note - [facility] - 11/27/2022 5:19 PM CDT Speech Language Pathologist Weekly Progress Note Patient Name: Consuelo Darby Patient Birthdate: 1980 [employer] Current Functional Status: Ms. Darby is a 42 year-old female referred to speech therapy for evaluation and treatment followingrecent hospitalization with a diagnosis of stroke. Past medical history is significant for abdominal pain right upper quadrant, hemiplegic migraine, GERD, HTN. Prior to referral for a rehabilitation a dmission, patient did not require assistance for household ambulation, community level ambulation or self-care activities. 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 Ms. Darby's current functional status is as follows: SWALLOWING: MBS was completed on 11/27/22 with results as follows: Swallow initiation was timely with only trace pharyngeal residue observed. Aspiration noted with thin liquids taken both via teaspoon and via cup. Immediate cough followed. No laryngeal penetration nor aspiration were observed with any other consistency. Patient presented with reduced mastication of the solid texture (cracker) due to left facial weakness. Solid pieces of the bolus remained unchewed. TREATMENT RECOMMENDATIONS-- 1. Begin PUREED texture diet (IDDSI 4) 2. Begin MILDLY THICK/NECTAR LIQUIDS (IDDSI 2) 3. Medications crushed in puree 4. May have ice chips 1-2 at a time as requested. Patient may have ice chips without direct supervision; remove melted ice from the room. 5. Upright for all PO intake 6. Slow rate during meals; Small bites/sips 7. Assist with set-up of tray. Monitor with meals and assist as needed. 8. Oral care following meals Oral movements of the labial and lingual muscles remain impaired; however, improvement has been noted with slightly better labial and lingual protrusion, retraction, etc. Recommend a follow-up MBS inone week. [employer] to initiate the SM Water Protocol. COMPREHENSION: Improved to SUPERVISION. Patient is able to comprehend information regarding basic needs over 90% of the time. Increased difficulty noted with complex or abstract information. Patient presents with left inattention. EXPRESSION: Improved to SUPERVISION. Patient is able to express information regarding basic needs over 90% of the time. Significant improvement noted in speech production with improved overall intelligibility. SOCIAL INTERACTION: MODIFIED INDEPENDENT. Patient interacts appropriately most of the time. She presents with flat affect and reduced initiation. She presents with left side inattention which affectssocial interactions. PROBLEM SOLVING: Improved to MINIMAL ASSISTANCE. Patient solves routine problems at least 75% of the time. Not formally assessed at this time. MEMORY: MINIMAL ASSISTANCE. Patient is able to recognize and remember people, routines, and requests at least 75% of the time. Not formally assessed at this time. PROGRESS 11/20/22: Evaluation was completed on 11/18/22. All goals remain appropriate at this time dueto limited number of sessions thus far. PROGRESS 11/27/22: Ms. Darby has made significant improvement this week in therapy. A MBS was completed and recommendation made to begin a PO diet of Pureed food items with Mildly Thick Liquids. Patient's speech intelligibility has improved so that she is fully intelligible. Improvement noted in functional problem-solving skills for routine daily tasks. She is able to remember familiar people and events at least 75% of the time. Overall endurance and participation in therapy tasks is improved. RECOMMENDATIONS: Ms. Darby will benefit from continued speech therapy services to address the following plan of care: compensatory strategy training; interventions to improve swallowing function to manage least restrictive diet and liquid textures; cognitive and communicative retraining to increased safety and independence upon discharge; and patient/family training and education. Consuelo Darby: [ ]is able to state 2 risk factors without VCs prior to discharge [ ]requires cues to recall 2 stroke risk factors [ X] Is unable to state stroke risk factors due to communication or cognitive deficits; Education not yet completed. Facilitating Factors in Goal Achievement: Patient compliance, Patient understanding and knowledge, Progress to date, Improvement in swallow function, Improvement in cognitive skills and Improvement in communication skills Barriers to Goal Achievement: Communication deficits and Other (comment) (cognition; dysphagia) Date Last Assessed: 11/27/2022 [place] Goals: Goal Status on Evaluation Current Progress Towards Goal Level of Assistance to Meet Auditory Comprehension: Standby (less than 10%) Auditory Comprehension Details: Demonstrate auditory comprehension of complex questions, directions, and conversation to meet needs, complete tasks and interact socially with others within functionalliving environments Auditory Comprehension Expected Achievement Date: 12/02/22 Minimal assistance Achieved at supervision level Level of Assistance to Meet Memory: Standby (less than 10%) Memory Details: Demonstrate functional memory skills for recall of information relating to people, routines, overall health, and safety within functional living environments Memory Expected Achievement Date: 12/02/22 Minimal assistance Continue to address Level of Assistance to Meet Motor Speech: Min assist (10-24%) Motor Speech Details: Demonstrate functional speech intelligibility in multiple environments through self monitoring and implementation of newly learned strategies and exercises Motor Speech Expected Achievement Date: 12/02/22 Moderate assistance Achieved at supervision level Level of Assistance to Meet Swallowing: Standby (less than 10%) Swallowing Details: Safely consume a regular diet with all liquids with no overt signs or symptoms of aspiration or post swallow distress Swallowing Expected Achievement Date: 12/02/22 NPO for solids and liquids IDDSI 4/ Additional Goal Status: N/A [employer] Short Term Goals: Auditory Comprehension: Level of Assistance to Meet Auditory Comprehension: Standby (less than 10%) Details: Answer complex yes/no questions with 90% acc Expected Achievement Date: 12/04/2022 Goal Status: Partially Achieved Memory: Level of Assistance to Meet Memory: Min assist (10-24%) Details: Recall 3-4 events from PT and OT sessions Expected Achievement Date: 12/04/2022 Goal Status: Partially Achieved Additional Cognition: Level of Assistance to Meet Additional Cognition: Min assist (10-24%) Details: Complete visual attention tasks with 80% acc Expected Achievement Date: 12/04/2022 Goal Status: Not Achieved Motor Speech: Level of Assistance to Meet Motor Speech: Mod assist (25-49%) Details: Increase maximum phonation time to 10 seconds Expected Achievement Date: 12/04/2022 Goal Status: Partially Achieved Swallowing: Level of Assistance to Meet Swallowing: Standby (less than 10%) Details: Improve OHAT score to zero, initiate SMWP as appropriate Expected Achievement Date: 12/04/2022 Goal Status: Partially Achieved Other STG 1: Focus: Motor Speech Level of Assistance to Meet Other STG 1: Independent Details: State three speech intelligibility strategies Expected Achievement Date: 11/27/2022 Goal Status: Achieved Other STG 2: Focus: Motor Speech Level of Assistance to Meet Other STG 2: Min assist (10-24%) Details: Demonstrate use of strategies at the phrase level Expected Achievement Date: 11/27/2022 Goal Status: Achieved Other STG 3: Focus: Swallowing Level of Assistance to Meet Other STG 3: Standby (less than 10%) Details: Tolerate PO trials ice chips, thickened liquids with <10% overt clinical signs/symptomsaspiration or post-swallow distress Expected Achievement Date: 11/27/2022 Goal Status: Achieved Other STG 4: Focus: Swallowing Details: Safely manage current diet (IDDSI 4/2) and trials of upgraded solids as appropriate with no clinical signs of dysphagia. Expected Achievement Date: 12/04/2022 Goal Status: Established Other STG 5: Focus: Swallowing Details: Perform swallowing exercises following a model with minimal assistance. Expected Achievement Date: 12/04/2022 Goal Status: Established Duration Expiration Date: 12/15/[address] 11/27/2022 * Plan of Care - Tatianna Pan RN - 11/27/2022 3:26 PM CDT Problem: Infection Goal: Absence of infection and prevention of transmission during hospitalization Outcome: Progressing Flowsheets (Taken 11/27/2022 1526) Absence of infection and prevention of transmission during hospitalization: Assess and monitor for signs and symptoms of infection and vital signs Monitor lab/diagnostic results Administer medications as ordered Problem: Knowledge Deficit Goal: Patient and/or family demonstrate readiness to learn Outcome: Progressing Goal: Patient and/or family verbalizes understanding of education, and/or performs desired skill Outcome: Progressing Problem: Discharge Planning Goal: Discharge to home or other facility with appropriate resources Outcome: Progressing Goal: supervisor engraving will develop a plan to decrease their burden and enhance comfort in role Outcome: Progressing Problem: Pain Goal: Patient's Pain/Discomfort is Manageable Outcome: Progressing Problem: Knowledge Deficit Goal: Patient/family/caregiver demonstrates understanding of disease process, treatment plan, medications, and discharge instructions Outcome: Progressing Problem: Potential for Compromised Skin Integrity Goal: Skin integrity is maintained or improved Outcome: Progressing Goal: Nutritional status is improving Outcome: Progressing Problem: Bowel Incontinence Goal: Perineal Skin Integrity is Maintained or Improved Outcome: Progressing Problem: Knowledge Deficit Goal: Patient and/or family demonstrate readiness to learn Outcome: Progressing Goal: Patient and/or family verbalizes understanding of condition and treatment, education, and/or performs desired skill Outcome: Progressing Problem: Altered neuro status Goal: Achieves stable or improved neurological status Outcome: Progressing Problem: Risk for / Impaired Cognition Goal: Patient has stable or improving cognition Outcome: Progressing Problem: Risk for delirium Goal: Prevents and manages delirium Outcome: Progressing Problem: Risk for / Impaired Communication Goal: Establish communication to meet the patient/caregiver needs Outcome: Progressing Problem: Risk for / Impaired Mobility (Activity Intolerance) Goal: Mobility/activity is maintained at optimum level for patient Outcome: Progressing Problem: Self-Care Deficit Goal: Achieves maximum function and self-care Outcome: Progressing Problem: Risk for / Imbalanced Nutrition Goal: Maintains adequate nutritional intake Outcome: Progressing Problem: Risk for/Anxiety Goal: Demonstrates ability to cope effectively Outcome: Progressing Problem: Risk for/ impaired bladder elimination (bowel/bladder) Goal: Patient has stable or improved bladder elimination Outcome: Progressing Problem: Risk for /Impaired bowel Goal: Patient has stable or improved bowel elimination Outcome: Progressing Problem: Risk for Infection Goal: Absence of infection and prevention of transmission during hospitalization Outcome: Progressing Problem: Risk for / Impaired Skin Integrity Goal: Skin integrity is maintained or improved Outcome: Progressing Problem: Risk for altered SNS response Goal: Reduce risk and mointor for uninhibited response of sympathetic nervous system Outcome: Progressing Problem: Risk for seizure activity Goal: Absence of seizures Outcome: Progressing Goal: Remains free of injury related to seizures activity Outcome: Progressing Problem: Risk for Aspiration Goal: Patient is free of signs of aspiration and the risk of aspiration is decreased Outcome: Progressing Problem: Fall Safety: [place] Precautions Goal: Free from fall injury Outcome: Progressing Problem: Fall Huddle Goal: Free from Fall Injury Outcome: Progressing Problem: Fall Prevention: Neglect/Hemiparesis Bundle Goal: Patient will be free from Fall Injury Outcome: Progressing * OT Weekly Progress Note - Bridgett Evangelista, OT - 11/27/2022 3:24 PM CDT Occupational Therapy Weekly Progress Note Patient Name: Consuelo Darby Patient Birthdate: 1980 OT Current Functional Status: Ms. Darby's current status is as follows (per documentation and observation): EATING: NPO, on tube feeding with G tube ORAL HYGIENE: with supervision with vinicius suction toothbrush TOILETING: with dependence, 2 person assist with use of Myra flex lift SHOWER/BATHING: with dependence, required assistance for all aspects of bathing tasks at bed level.Will use right UE to hole washcloth to wash face. UPPER BODY DRESSING: with dependence with pullover shirt LOWER BODY DRESSING: with dependence with all aspects of lower body dressing either at bed level orwith use of Myra flex lift FOOTWEAR: with dependence with all aspects of footwear ROLL LEFT/RIGHT: with dependence SIT TO LYING: not performed with OT due to safety concerns on low air loss mattress LYING TO SITTING: not performed with OT due to safety concerns on low air loss mattress SIT TO STAND: with dependence using Myra flex lift, per PT pt able to perform in parallel bars withleft knee blocked. BED TO CHAIR TRANSFER: with dependence, use of myra flex lift or little lift, 2 person assist with transfer TOILET TRANSFER: with dependence, use of myra flex lift in w/c or little lift from low air loss mattress, requires assist of 2 with transfer. Ms. Darby requires increased time to process directions and has been more alert during tx session. Decreased c/o pain during sessions noted. Ms. Darby continues to present with right side gaze preference requiring cues to turn head towards left. No active movement noted in left UE, however, increased tightness in left shoulder. Ms. Darby has made progress towards endurance and pain tolerance as we ll as ability to tolerate myra flex lift for transfer. Ms. Darby continues to be limited in selfcare, transfers, balance, endurance, left UE function, cognition, visual perception and would benefit from continued OT services to work on maximizing functional independence. Facilitating Factors in Goal Achievement: Patient compliance, Patient motivation, Support of familyor caregiver, Improved cognition and Decrease in pain Barriers to Goal Achievement: Pain, ROM limitations, Strength limitations, Balance deficits, Motor control deficits, Diminished endurance, Decreased safety awareness, Cognitive deficits and Visual deficits Date Last Assessed: 11/27/2022 Patient needs assistance with the following activities: Activities of daily living, Vision, Going out in the community, Use of bathroom equipment, Memory, Use of patient user experience manager, Rolling, Head control, Positioning, Reaching and Sitting balance Will patient require a prosthetic or orthotic device upon discharge: No CARE Score Fields: 6: Independent. [place] provides no assistance with tasks. A device may or may not have been used. 5: Set-up or clean-up assistance. [place] sets up or cleans up, but does not assist with tasks. [place] may have assisted prior to or following the activity. 4: Supervision or touching assistance. [place] provides verbal cues or touching/steadying or contactguard assistance. Assistance may be provided throughout the activity or intermittently. 3: Partial/moderate assistance. [place] does less than half the effort. [place] lifts, holds, or supports trunk or limbs, but provides less than half the effort. 2: Substantial/maximal assistance. [place] does more than half the effort. [place] lifts or holds trunk or limbs, and provides more than half the effort. 1: Dependent. [place] does all of the effort, or the assistance of two or more helpers is required for the patient to complete the activity. -: Inconsistent or incomplete documentation Activity not attempted values: 7: Patient refused 9: Not applicable - Not attempted and the patient did not perform this activity prior to the current illness, exacerbation, or injury. 10: Not attempted due to environmental limitations (e.g., lack of equipment, weather constraints) 88: Not attempted due to medical condition or safety concerns [place] Hel[place] Goals: Goal Status on Admission Current Status Eating LTG: Supervision or touching assistance Eating - CARE Score: 88 (11/18/22 1252 : Roland Eubanks, OT) Eating - CARE Score: 88 (11/27/22 1524) Oral Hygiene LTG: Supervision or touching assistance Oral Hygiene - CARE Score: 2 (11/18/22 1252 : Roland Avendano OT) Oral Hygiene - CARE Score: 4 (11/27/22 1524) Toileting Hygiene LTG: Partial/moderate assistance Toileting Hygiene - CARE Score: 1 (11/18/22 1252: Roland Avendano OT) Toileting Hygiene - CARE Score: 1 (11/27/22 1524) Shower/Bathe Self LTG: Partial/moderate assistance Shower/Bathe Self - CARE Score: 1 (11/18/22 1252: Roland Avendano OT) Shower/Bathe Self - CARE Score: 1 (11/27/22 1524) Upper Body Dressing LTG: Partial/moderate assistance Upper Body Dressing - CARE Score: 1 (11/18/22 1252 : Roland Avendano OT) Upper Body Dressing - CARE Score: 1 (11/27/22 1524) Lower Body Dressing LTG: Partial/moderate assistance Lower Body Dressing - CARE Score: 1 (11/18/22 1252 : Roland Avendano OT) Lower Body Dressing - CARE Score: 1 (11/27/22 1524) Putting On/Taking Off Footwear LTG: Partial/moderate assistance Putting On/Taking Off Footwear - CARE Score: 1 (11/18/22 1252 : Roland Avendano OT) Putting On/Taking Off Footwear - CARE Score: 1 (11/27/22 1524) Roll Left and Right - CARE Score: 1 (11/18/22 1252 : Roland Avendano OT) Roll Left and Right - CARE Score: 1 (11/27/22 1524) Sit to Lying - CARE Score: 88 (11/18/22 1252 : Roland Avendano OT) Sit to Lying - CARE Score:88 (11/27/22 1524) Lying to Sitting on Side of Bed - CARE Score: 88 (11/18/22 1252 : Roland Avendano OT) Lying to Sitting on Side of Bed - CARE Score: 88 (11/27/22 1524) Sit to Stand - CARE Score: 88 (11/18/22 1252 : Roland Avendano OT) Sit to Stand - CARE Score:1 (11/27/22 1524) Chair/Kqy-st-Qceea Transfer LTG: Partial/moderate assistance Chair/Axb-wl-Yefog Transfer - CARE Score: 1 (11/18/22 1252 : Roland Avendano, OT) Chair/Osd-vf-Klyxu Transfer - CARE Score: 1 (11/27/22 1524) Toilet Transfer LTG: Partial/moderate assistance Toilet Transfer - CARE Score: 88 (11/18/22 1252 : Roland Avendano, OT) Toilet Transfer - CARE Score: 1 (11/27/22 152) Additional Goals & Status: N/A OT Short Term Goal 1: Focus: Toileting Hygiene Level of Assistance to Meet Short Term Goal: Physical assistance 50%-74% Expected Achievement Date: 12/04/2022 Goal Status: Not Achieved OT Short Term Goal 2: Focus: Shower/Bathe Level of Assistance to Meet Short Term Goal: Physical assistance 50%-74% Expected Achievement Date: 12/04/2022 Goal Status: Not Achieved OT Short Term Goal 3: Focus: Upper Body Dressing Level of Assistance to Meet Short Term Goal: Physical assistance 50%-74% Expected Achievement Date: 12/04/2022 Goal Status: Not Achieved OT Short Term Goal 4: Focus: Lower Body Dressing Level of Assistance to Meet Short Term Goal: Physical assistance 50%-74% Expected Achievement Date: 12/04/2022 Goal Status: Not Achieved OT Short Term Goal 5: Focus: Chair/Bed Transfer Level of Assistance to Meet Short Term Goal: Physical assistance 50%-74% Expected Achievement Date: 12/04/2022 Goal Status: Not Achieved OT Short Term Goal 6: Focus: Toilet Transfer Level of Assistance to Meet Short Term Goal: Physical assistance 50%-74% Expected Achievement Date: 12/04/2022 Goal Status: Not Achieved Duration Expiration Date: 12/16/2022 BRIDGETT EVANGELISTA OT 11/27/2022 * PT Weekly Progress Note - Kellie Moran, PT - 11/27/2022 3:23 PM CDT PT Weekly Progress Note Patient Name: Consuelo Darby Patient Birthdate: 1980 PT CURRENT FUNCTIONAL STATUS: PT Current Functional Status: PT Current Functional Status: Ms. Darby's functional status as follows: PRECAUTIONS: helmet on when up out of bed, tube feeding. TONE: increasing flexor tone noted in left UE/LE. Clonus at times in left leg. Able to passively obtain full range at hip/knee and just past neutral in ankle. BED MOBILITY: Sit to/from supine with max assist of one, min of another for left side assist, trunk control. Pt does attempt to assist with right side. Rolling with to left with cues and min assist to complete motion. To left: max/total assist to bring left side. TRANSFERS Pt on low air loss mattress for pressure relief/positioning. Use of little for bed to chair transfers for safety in room. Sit to/from stand from w/c with max of one for left knee block, lift assist. Min of another for trunk control. Stand pivot with max of one and mod of another for trunk control. Max left knee block. Improves some going right vs left due to left inattention/visual tracking deficits left. Have tried w/c to/from level mat with use of transfer board: max of one to block left leg, lift at hips/trunk support. Mod of another for lift assist, trunk control. Car transfer: not safe to attempt at this time. GAIT Sling to support left UE, francisco wrap to facilitate left ankle DF Ambulates with right UE support on parallel bars: 10ft x2 with max assist of one anteriorly to advance and block left leg, trunk control, wt shift right. Min/mod of another for trunk control, close w/c follow. Deviations: decreased midline orientation- gradual list left. Able to shift right but difficutly maintaining. Sequencing cues. Right gaze preference. Head control varies- at times min for po sitioning. Unsafe to attempt ambulation 10, 50',150' outside of parallel bars at this time. Ambulates 10' on compliant surfaces: not safe to attempt Unsafe to retrieve object from floor STAIRS Acscends/descends 1,4, 12 steps unsafe to attempt at this time WHEELCHAIR MOBILITY Pt in tilt in space w/c for trunk control, head control. Left half lap tray for UE support. Trialed pt in regular light wt w/c: pt with left trunk lean and posterior lean/fair head control- requires min/mod head control support at times. Attempted to initiate w/c propulsion with right arm/leg: max assist to control left side, guidance due to right gaze preference, left inattention, decreased visual tracking past midline on left. Propelled 60ft. Max/Total to go 150ft. End of session required repositioning back into tilt in space w/c due to poor tolerance for trunk control, head control for any extended period in regular w/c. Requires increased trunk support for positioning, head support. OUTCOME MEASURES: AGITATED BEHAVIOR SCALE 16 POSTURAL ASSESSMENT OF STROKE 10 METER WALK TEST- not able to attempt PROGRESS: Ms. Darby is making progress with therapy. She works hard and will continue to benefit from intensive therapy to maximize functional gains. She is improving with sitting balance, upright tolerance/out of bed. Trialed upright regular w/c this date vs tilt in space. Decreased tolerance for maintaining upright trunk and head control- still recommend use of tilt in space w/c for appropriatesupport and safety. Noted left inattention and decreased ability to track objects left- slight improvement. Has prisms on her glasses to help facilitate left tracking. DME Recommendations Common Therapy DME: Hospital Bed, Specialty Mattress, Transfer Board, Manual Lift, Manual Wheelchair (contacted [employer] regarding specialty w/c for home use) Hospital Bed - Type: Semi-Electric Hospital bed Manual Lift: Sling Lift Specialty [place] - Type: Low Air Loss Transfer Board - Type: 24 in without cutout CARE Score Fields: 6: Independent. [place] provides no assistance with tasks. A device may or may not have been used. 5: Set-up or clean-up assistance. [place] sets up or cleans up, but does not assist with tasks. [place] may have assisted prior to or following the activity. 4: Supervision or touching assistance. [place] provides verbal cues or touching/steadying or contactguard assistance. Assistance may be provided throughout the activity or intermittently. 3: Partial/moderate assistance. [place] does less than half the effort. [place] lifts, holds, or supports trunk or limbs, but provides less than half the effort. 2: Substantial/maximal assistance. [place] does more than half the effort. [place] lifts or holds trunk or limbs, and provides more than half the effort. 1: Dependent. [place] does all of the effort, or the assistance of two or more helpers is required for the patient to complete the activity. -: Inconsistent or incomplete documentation Activity not attempted values: 7: Patient refused 9: Not applicable - Not attempted and the patient did not perform this activity prior to the current illness, exacerbation, or injury. 10: Not attempted due to environmental limitations (e.g., lack of equipment, weather constraints) 88: Not attempted due to medical condition or safety concerns [place] Goals: Goal Status on Admission Current Status Car Transfer LTG: Partial/moderate assistance (Patient will complete car transfer with moderate assist to be able to transport in a personal vehicle.) Car Transfer - CARE Score: 88 (11/18/22 100 : Roxanne Goldberg PT) Car Transfer - CARE Score: 88 (11/27/221555) Walk 10 Feet - CARE Score: 88 (11/18/22 100 : Roxanne Goldberg PT) Walk 10 Feet - CARE Score: 88 (11/27/221555) Walk 50 Feet with Two Turns - CARE Score: 88 (11/18/22 1006 : Roxanne Goldberg PT) Walk 50 Feet with Two Turns - CARE Score: 88 (11/27/221555) Walk 150 Feet - CARE Score: 88 (11/18/22 1006 : Roxanne Goldberg PT) Walk 150 Feet - CARE Score: 88(11/27/221555) Walking 10 Feet on Uneven Surfaces - CARE Score: 88 (11/18/22 1006 : Roxanne Goldberg PT) Walking 10 Feet on Uneven Surfaces - CARE Score: 88 (11/27/221555) 1 Step (Curb) - CARE Score: 88 (11/18/22 1006 : Roxanne Goldberg PT) 1 Step (Curb) - CARE Score: 88(11/27/221555) 4 Steps - CARE Score: 88 (11/18/22 1006 : Roxanne Goldberg PT) 4 Steps - CARE Score: 88 (11/27/22 155) 12 Steps - CARE Score: 88 (11/18/22 1006 : Roaxnne Goldberg PT) 12 Steps - CARE Score: 88 (556) Picking Up Object - CARE Score: 88 (11/18/22 1006 : Roxanne Goldberg PT) Picking Up Object - CARE Score: 88 (11/27/22 155) Wheel 50 Feet with Two Turns LTG: Supervision or touching assistance (Patient will be able to wheel50 ft including navigating the environment with touching assistance.) Wheel 50 Feet with Two Turns - CARE Score: 88 (11/18/22 1006 : Roxanne Goldberg PT) Wheel 50 Feet with Two Turns - CARE Score: 2 (11/27/22 155) Wheel 150 Feet - CARE Score: 88 (11/18/22 1006 : Roxanne Goldberg, PT) Wheel 150 Feet - CARE Score: 2 (11/27/221555) Additional Goals & Status: N/A PT Other Mcfp Goals Flowsheet Row Most Recent Value Other PT Mcfp Goals Other Goals - [place] 1, Mcfp 2 Filed on: 11/18/2022 1057 Other Mcfp Goal 1 Patient will complete transfers with moderate assist of one person. Filed on: 11/18/2022 1057 Other Mcfp Goal 1 Status Established Filed on: 11/18/2022 1057 Other [place] Goal 2 Patient will complete bed mobility including rolling and supine<> sit transitions with minimal assistance. Filed on: 11/18/2022 1057 Other Mcfp Goal 2 Status Established Filed on: 11/18/2022 1057 Expected Achievement Date 12/15/22 Filed on: 11/18/2022 1057 PT Short Term Goal 1: Focus: Other Details: Patient will be able to tolerate being out of bed and seated in her wheelchair for increased engagement within therapy session. Expected Achievement Date: 11/25/2022 Goal Status: Achieved PT Short Term Goal 2: Focus: Other (Bed mobility) Level of Assistance to Meet Short Term Goal: Physical assistance 75% or more Details: Patient will complete rolling in bed with maximal assist of one. Expected Achievement Date: 12/04/2022 Status: Partially Achieved PT Short Term Goal 3: Level of Assistance to Meet Short Term Goal: Total assistance Details: Patient will be able to complete sit <> supine transitions with two person moderate assist. Expected Achievement Date: 12/04/2022 Status: Partially Achieved PT Short Term Goal 4: Details: Pt w/c to mat with stand pivot and max assist of one. Expected Achievement Date: 12/04/2022 Goal Status: Established Duration Expiration Date: 12/17/2022 KELLIE MORAN, PT 11/27/2022 * Non-treatment Therapy Note - Roberto Lee OT - 11/27/2022 3:10 PM CDT Prior to team conference, the Primary Therapist Bridgett Evangelista, OT and I have communicated regarding current patient status, progress towards goals, and modifications to plan of care, as appropriate. ROBERTO LEE, OT * [employer] Instrumental Swallowing Evaluation - [facility] - 11/27/2022 1:08 PM CDT Speech Language Pathologist Instrumental Swallow Evaluation Patient Name: Consuelo Darby Patient Birthdate: 1980 Patient Subjective Report - I'm nervous. Pain Assessment Pain Context: Therapy Assessment Prior to Treatment (11/27/22 1308) Pain Assessment: None/denies pain (11/27/22 1308) Reason for VFSS/MBS: Assess candidacy for initiation of P.O. diet Prior VFSS/MBS results or FEES results: No prior MBS noted in medical record. Cognitive status: Compliant, Awake and alert and Able to follow directions/strategies Motor control: Fed self during exam Viewing Plane: Lateral Consistencies tested: IDDSI 7 - Regular / Regular, IDDSI 4 - Pureed / NDD1, IDDSI 3 - Moderately Thick / Honey Thick Liquids, IDDSI 2 - Mildly Thick / [employer] Thick Liquids and IDDSI 0 - Thin Liquids / All Liquids Oral phase impairments: Anterior spillage, Prolonged mastication and Oral residue Pharyngeal phase impairment: Aspiration with effective cough/throat clear (Comment) Rosenbek's Penetration Aspiration Scale: Contrast enters the airway, passes below the vocal folds, and is ejected into the larynx or out of the airway. Esophageal phase impairments: Appears within functional limits VFSS/MBS results stored in secured place: Yes Additional Status & Goals: N/A Evaluation Summary: Modified Barium Swallow was performed in conjunction with radiology using lateral views. Per MBSImP protocol, standardized barium viscosities were used. The patient was given thin liquid, nectar thick liquid, honey thick liquid, pudding consistency and cracker dipped in pudding/barium mix. Barium was administered via 5 mL teaspoon boluses, via spoon and cup, single and sequential swallows. ORAL STAGE-- Lip Closure: Escape from interlabial space or lateral juncture (solid). Tongue Control During Bolus Hold: Cohesive bolus between tongue to palatal seal Bolus Preparation/Mastication: Disorganized chewing/mashing with solid pieces of bolus unchewed Bolus Transport/Lingual Motion: Slowed tongue motion Oral Residue: Residue collection on oral structures Initiation of Pharyngeal Swallow: Bolus head at posterior angle of ramus. PHARYNGEAL STAGE-- Soft Palate Elevation: No bolus between soft palate and pharyngeal wall Laryngeal Elevation: Complete superior movement of thyroid cartilage with complete approximation ofarytenoids to epiglottic petiole Anterior Hyoid Excursion: Complete anterior movement Epiglottic Movement: Incomplete inversion Laryngeal Vestibular Closure-Height of Swallow: Incomplete; narrow column of contrast in the laryngeal vestible Pharyngeal Stripping Wave: Present; diminished Pharyngeal Contraction: Unable to assess in lateral view Pharyngoesophageal Segment Opening: Complete distension and complete duration; no obstruction of flow Tongue Base Retraction: No contrast between the tongue base and pharyngeal wall Pharyngeal Residue: Trace residue within or on pharyngeal structures ESOPHAGEAL STAGE-- Esophageal Clearance Upright Position: Complete clearance OVERALL SWALLOWING FUNCTION:: Swallow initiation was timely with only trace pharyngeal residue observed. Aspiration noted with thin liquids taken both via teaspoon and via cup. Immediate cough followed. No laryngeal penetration nor aspiration were observed with any other consistency. Patient presented with reduced mastication of the solid texture (cracker) due to left facial weakness. Solid pieces of the bolus remained unchewed. TREATMENT RECOMMENDATIONS-- 1. Begin PUREED texture diet (IDDSI 4) 2. Begin MILDLY THICK/NECTAR LIQUIDS (IDDSI 2) 3. Medications crushed in puree 4. May have ice chips 1-2 at a time as requested. Patient may have ice chips without direct supervision; remove melted ice from the room. 5. Upright for all PO intake 6. Slow rate during meals; Small bites/sips 7. Assist with set-up of tray. Monitor with meals and assist as needed. 8. Oral care following meals EDUCATION-- Patient was educated regarding results of the study. Physician was notified and orders written for diet change. Results were discussed with RN. Recommended diet: IDDSI 4 - Pureed / NDD1, IDDSI 2 - Mildly Thick / [employer] Thick Liquids and Pills Crushed in IDDSI 4 (Pureed / Extremely Thick) Compensatory swallowing techniques recommended: Eat slowly-control rate, Small bites, Small sips, Seated upright with all PO intake and Oral care post PO intake Level of supervision at meals recommended: Monitor at meals and assist as needed and Assistance with set-up : Will further assess for candidacy. Pain Evaluation and Follow-up Pain Reassessment: 0, No pain (11/27/22 141) Nursing notified of patient's pain assessment: Not indicated - pain score 2 or less (11/27/22 141) Therapy Minutes VFSS/MBS Evaluation (ST) Time In : 1308 Time Out: 1414 Breaks/Pauses (Min): 0 mins Time calculation (min): 66 min Missed Minutes : [address] 11/27/2022 * OT Treatment Note - Bridgett Evangelista, OT - 11/27/2022 11:18 AM CDT Occupational Therapy Treatment Patient Name: Consuelo Darby Patient Birthdate: 1980 Patient Subjective Report - can I go back to bed. Pain Assessment Pain Context: Therapy Assessment During Treatment (11/27/22 111) Pain Assessment: NRS 0-10 (11/27/22 111) Pain Score: 2 - Mild Pain (11/27/221117) Pain Severity - NRS (Calculated): Mild (11/27/221117) Pain Type: Acute pain (11/27/22 111) Pain Location: Head (11/27/22 111) Pain Orientation: Upper (11/27/221117) Pain Descriptors: Aching (11/27/221117) Pain Onset: Ongoing (11/27/221117) Pain Frequency: Constant/continuous (11/27/221117) Aggravating Factors: Activity Duration, Positioning (11/27/221117) Pre-therapy pain intervention required: Patient expressed pain is tolerable/able to proceed (11/27/221117) Pain Interventions Education Provided: Patient (11/27/221117) Non-Pharmacologic Pain Interventions: Distractions, Exercise/Activity, Position/Reposition, Rest (11/27/221117) Emotional/Spiritual Pain Interventions: Emotional Support (11/27/221117) ADL Training: ADL Training Narrative: FOOTWEAR: with dependence Transfer Training: Transfer Narrative: BED TO CHAIR TRANSFER: with dependence using little lift of 2 people OT Therapeutic Activity: Therapeutic Exercise: Ms. Darby participated with left UE PROM. Continued tightness noted in left shoulder. Able to range left shoulder to approx 110 degrees before Ms. Darby c/o pain. Placed Ms. Washburn left UE in gravity eliminated position using deltoid aid. No active movement noted when in gravity eliminated. Endurance: Required frequent rest breaks. Requested to go back to bed only 2 times, however, was able to redirect back to task. Cognition: Decreased attention to task, problem solving, insight, memory, and impulsive at times. Visual Perceptual: Placed 1 in wooden blocks in lap tray. Ms. Darby required moderate cues to turn head to locate blocks on left side. Placed blocks to far left of tray and requested for Ms. Darby tolocate blocks by color. She required moderate cues to locate blocks on left and moderate cues to locate correct color. However, when Ms. Darby was requested to replace blocks onto left side, she required maximal cues to complete task. Ms. Darby tends to exhibit right side gaze preference. She is able to turn head and gaze towards left with moderate cues, however, only holds position for very short period of time. Treatment, Outcomes and Plan: OT Narrative:: Ms. Darby tolerated tx with frequent rest breaks. She would benefit from continued OT services to work on maximizing functional independence. OT Treatment Outcomes:: Safety device reapplied, Patient tolerated treatment fairly, Patient is progressing toward STG(s), Goals met for this session, Cues needed for safety and Improved balance and coordination OT Summary Plan of Care: Continue with current plan of care Pain Evaluation and Follow-up Response to Therapy Interventions: Other (comment) (no significant difference) (11/27/22 1206) Pain Reassessment: 2 (11/27/22 120) Nursing notified of patient's pain assessment: Not indicated - pain score 2 or less (11/27/22 1206) Therapy Minutes Individual Concurrent Co-Treat Individual (OT) Time In : 1118 Time Out: 1206 Total Time with Patient (Min): 48 min BRIDGETT EVANGELISTA, OT 11/27/2022 * PT Treatment Note - Kellie Moran, PT - 11/27/2022 9:45 AM CDT PT Treatment Patient Name: Consuelo Darby Patient Birthdate: 1980 Patient Subjective Report - pt reports feeling ok this date. Ready for therapy. Pain Assessment Pain Context: Therapy Assessment During Treatment (11/27/22944) Pain Assessment: None/denies pain (11/27/22944) Skin Issues Narrative: No skin issues noted on left heel. Has multi-podus boot on when in bed. Washed hands- left hand washed and dried thoroughly , applied lotion due to dry skin. PT Treatment Outcomes:: Safety device reapplied and Patient tolerated treatment well PT Summary:: Ms. Darby tolerated the session well. She works hard and will continue to benefit fromintensive therapy to maximize functional gains. She is improving with sitting balance, upright tolerance/out of bed. Trialed upright regular w/c this date vs tilt in space. Decreased tolerance for maintaining upright trunk and head control- still recommend use of tilt in space w/c for appropriate support and safety. Noted left inattention and decreased ability to track objects left- slight improvement. Has prisms on her glasses to help facilitate left tracking. PT Summary Plan of Care: Continue with current plan of care TONE: increasing flexor tone noted in left UE/LE. Clonus at times in left leg. Able to passively obtain full range at hip/knee and just past neutral in ankle. BED MOBILITY: Sit to/from supine with max assist of one, min of another for left side assist, trunk control. Pt does attempt to assist with right side. Rolling with to left with cues and min assist to complete motion. To left: max/total assist to bring left side. TRANSFERS Sit to/from stand from w/c with max of one for left knee block, lift assist. Min of another for trunk control. Stand pivot with max of one and mod of another for trunk control. Max left knee block. Improves some going right vs left due to left inattention/visual tracking deficits left. Car transfer: not safe to attempt at this time. GAIT Sling to support left UE, [place] wrap to facilitate left ankle DF Ambulates with right UE support on parallel bars: 10ft x2 with max assist of one anteriorly to advance and block left leg, trunk control, wt shift right. Min/mod of another for trunk control, close w/c follow. Deviations: decreased midline orientation- gradual list left. Able to shift right but difficutly maintaining. Sequencing cues. Right gaze preference. Head control varies- at times min for p ositioning. Unsafe to attempt ambulation 10, 50',150' outside of parallel bars at this time. Ambulates 10' on compliant surfaces: not safe to attempt Unsafe to retrieve object from floor STAIRS Acscends/descends 1,4, 12 steps unsafe to attempt at this time WHEELCHAIR MOBILITY Pt in tilt in space w/c for trunk control, head control. Left half lap tray for UE support. Trialed pt in regular light wt w/c: pt with left trunk lean and posterior lean/fair head control- requires min/mod head control support at times. Attempted to initiate w/c propulsion with right arm/leg: max assist to control left side, guidance due to right gaze preference, left inattention, decreased visual tracking past midline on left. Propelled 60ft. Max/Total to go 150ft. End of session required repositioning back into tilt in space w/c due to poor tolerance for trunk control, head control for any extended period in regular w/c. Requires increased trunk support for positioning, head support. OUTCOME MEASURES: AGITATED BEHAVIOR SCALE 16 POSTURAL ASSESSMENT OF STROKE 10 METER WALK TEST- not able to attempt Activity: Ambulated as noted x2 in parallel bars. Sit to/from stance x2 in parallel bars with max support of one. Use of sit to stand sports athletic trainer- 20lb lift assist: sit to stand with UE grasp on anterior grab bar or on w/c armrest: mod support at trunk for balance coming to stance and return to sit. Min/mod once up to facilitate wt shift right and maintain. Mod support for positioning of head to facilitate midlineand track object out window when in midline. Repeated coming to stance and static stance x6. Pain Evaluation and Follow-up Pain Reassessment: 0, No pain (11/27/22 1045) Therapy Minutes Individual Concurrent Co-Treat Individual (PT) Time In : 45 Time Out: 1117 Total Time with Patient (Min): 92 min KELLIE MORAN, PT 11/27/2022 * Plan of Care - Radha Godoy RN - 11/26/2022 11:35 PM CDT Problem: Infection Goal: Absence of infection and prevention of transmission during hospitalization Outcome: Progressing Problem: Knowledge Deficit Goal: Patient and/or family demonstrate readiness to learn Outcome: Progressing Goal: Patient and/or family verbalizes understanding of education, and/or performs desired skill Outcome: Progressing Problem: Discharge Planning Goal: Discharge to home or other facility with appropriate resources Outcome: Progressing Goal: supervisor engraving will develop a plan to decrease their burden and enhance comfort in role Outcome: Progressing Problem: Pain Goal: Patient's Pain/Discomfort is Manageable Outcome: Progressing Problem: Knowledge Deficit Goal: Patient/family/caregiver demonstrates understanding of disease process, treatment plan, medications, and discharge instructions Outcome: Progressing Problem: Potential for Compromised Skin Integrity Goal: Skin integrity is maintained or improved Outcome: Progressing Goal: Nutritional status is improving Outcome: Progressing Problem: Bowel Incontinence Goal: Perineal Skin Integrity is Maintained or Improved Outcome: Progressing Problem: Knowledge Deficit Goal: Patient and/or family demonstrate readiness to learn Outcome: Progressing Goal: Patient and/or family verbalizes understanding of condition and treatment, education, and/or performs desired skill Outcome: Progressing Problem: Altered neuro status Goal: Achieves stable or improved neurological status Outcome: Progressing Problem: Risk for / Impaired Cognition Goal: Patient has stable or improving cognition Outcome: Progressing Problem: Risk for delirium Goal: Prevents and manages delirium Outcome: Progressing Problem: Risk for / Impaired Communication Goal: Establish communication to meet the patient/caregiver needs Outcome: Progressing Problem: Risk for / Impaired Mobility (Activity Intolerance) Goal: Mobility/activity is maintained at optimum level for patient Outcome: Progressing Problem: Self-Care Deficit Goal: Achieves maximum function and self-care Outcome: Progressing Problem: Risk for / Imbalanced Nutrition Goal: Maintains adequate nutritional intake Outcome: Progressing Problem: Risk for/Anxiety Goal: Demonstrates ability to cope effectively Outcome: Progressing Problem: Risk for/ impaired bladder elimination (bowel/bladder) Goal: Patient has stable or improved bladder elimination Outcome: Progressing Problem: Risk for /Impaired bowel Goal: Patient has stable or improved bowel elimination Outcome: Progressing Problem: Risk for Infection Goal: Absence of infection and prevention of transmission during hospitalization Outcome: Progressing Problem: Risk for / Impaired Skin Integrity Goal: Skin integrity is maintained or improved Outcome: Progressing Problem: Risk for altered SNS response Goal: Reduce risk and mointor for uninhibited response of sympathetic nervous system Outcome: Progressing Problem: Risk for seizure activity Goal: Absence of seizures Outcome: Progressing Goal: Remains free of injury related to seizures activity Outcome: Progressing Problem: Risk for Aspiration Goal: Patient is free of signs of aspiration and the risk of aspiration is decreased Outcome: Progressing Problem: Fall Safety: [place] Precautions Goal: Free from fall injury Outcome: Progressing Problem: Fall Huddle Goal: Free from Fall Injury Outcome: Progressing Problem: Fall Prevention: Neglect/Hemiparesis Bundle Goal: Patient will be free from Fall Injury Outcome: Progressing * Plan of Care - Marcella Orantes RN - 11/26/2022 12:26 PM CDT Problem: Infection Goal: Absence of infection and prevention of transmission during hospitalization Outcome: Progressing Problem: Knowledge Deficit Goal: Patient and/or family demonstrate readiness to learn Outcome: Progressing Goal: Patient and/or family verbalizes understanding of education, and/or performs desired skill Outcome: Progressing Problem: Discharge Planning Goal: Discharge to home or other facility with appropriate resources Outcome: Progressing Goal: supervisor engraving will develop a plan to decrease their burden and enhance comfort in role Outcome: Progressing Problem: Pain Goal: Patient's Pain/Discomfort is Manageable Outcome: Progressing Problem: Knowledge Deficit Goal: Patient/family/caregiver demonstrates understanding of disease process, treatment plan, medications, and discharge instructions Outcome: Progressing Problem: Potential for Compromised Skin Integrity Goal: Skin integrity is maintained or improved Outcome: Progressing Goal: Nutritional status is improving Outcome: Progressing Problem: Bowel Incontinence Goal: Perineal Skin Integrity is Maintained or Improved Outcome: Progressing Problem: Knowledge Deficit Goal: Patient and/or family demonstrate readiness to learn Outcome: Progressing Goal: Patient and/or family verbalizes understanding of condition and treatment, education, and/or performs desired skill Outcome: Progressing Problem: Altered neuro status Goal: Achieves stable or improved neurological status Outcome: Progressing Problem: Risk for / Impaired Cognition Goal: Patient has stable or improving cognition Outcome: Progressing Problem: Risk for delirium Goal: Prevents and manages delirium Outcome: Progressing Problem: Risk for / Impaired Communication Goal: Establish communication to meet the patient/caregiver needs Outcome: Progressing Problem: Risk for / Impaired Mobility (Activity Intolerance) Goal: Mobility/activity is maintained at optimum level for patient Outcome: Progressing Problem: Self-Care Deficit Goal: Achieves maximum function and self-care Outcome: Progressing Problem: Risk for / Imbalanced Nutrition Goal: Maintains adequate nutritional intake Outcome: Progressing Problem: Risk for/Anxiety Goal: Demonstrates ability to cope effectively Outcome: Progressing Problem: Risk for/ impaired bladder elimination (bowel/bladder) Goal: Patient has stable or improved bladder elimination Outcome: Progressing Problem: Risk for /Impaired bowel Goal: Patient has stable or improved bowel elimination Outcome: Progressing Problem: Risk for Infection Goal: Absence of infection and prevention of transmission during hospitalization Outcome: Progressing Problem: Risk for / Impaired Skin Integrity Goal: Skin integrity is maintained or improved Outcome: Progressing Problem: Risk for altered SNS response Goal: Reduce risk and mointor for uninhibited response of sympathetic nervous system Outcome: Progressing Problem: Risk for seizure activity Goal: Absence of seizures Outcome: Progressing Goal: Remains free of injury related to seizures activity Outcome: Progressing Problem: Risk for Aspiration Goal: Patient is free of signs of aspiration and the risk of aspiration is decreased Outcome: Progressing Problem: Fall Safety: [place] Precautions Goal: Free from fall injury Outcome: Progressing Problem: Fall Huddle Goal: Free from Fall Injury Outcome: Progressing Problem: Fall Prevention: Neglect/Hemiparesis Bundle Goal: Patient will be free from Fall Injury Outcome: Progressing * Plan of Care - Myron Infante RN - 11/25/2022 11:10 PM CDT Problem: Infection Goal: Absence of infection and prevention of transmission during hospitalization Outcome: Progressing Flowsheets (Taken 11/21/2022 1513 by Crissy Georges, AMBROSE) Absence of infection and prevention of transmission during hospitalization: Assess and monitor for signs and symptoms of infection and vital signs Problem: Pain Goal: Patient's Pain/Discomfort is Manageable Outcome: Progressing Flowsheets (Taken 11/20/2022 0143 by Archie Loja, AMBROSE) Patient's Pain/Discomfort is Manageable: Assess pain level Include patient/family/caregiver in decisions related to pain management Provide Emotional/Spiritual Support Administer medications as ordered Reassess patient's response and tolerance to discomfort Offer non-pharmocological pain management interventions Assess pain using FLACC, PAINAD or Chap[place]-Guidry Problem: Potential for Compromised Skin Integrity Goal: Skin integrity is maintained or improved Outcome: Progressing Flowsheets (Taken 11/19/2022 0141 by Archie Loja, AMBROSE) Skin Integrity is Maintained or Improved: Collaborate with WOCN/Wound Nurse Relieve pressure to bony prominences, avoid shearing Assess skin and skin risk for breakdown Turn Patient Keep skin clean and dry Monitor and teach appropriate hygiene practices * Plan of Care - Marcella Orantes RN - 11/25/2022 1:17 PM CDT Problem: Infection Goal: Absence of infection and prevention of transmission during hospitalization Outcome: Progressing Problem: Knowledge Deficit Goal: Patient and/or family demonstrate readiness to learn Outcome: Progressing Goal: Patient and/or family verbalizes understanding of education, and/or performs desired skill Outcome: Progressing Problem: Discharge Planning Goal: Discharge to home or other facility with appropriate resources Outcome: Progressing Goal: supervisor engraving will develop a plan to decrease their burden and enhance comfort in role Outcome: Progressing Problem: Pain Goal: Patient's Pain/Discomfort is Manageable Outcome: Progressing Problem: Knowledge Deficit Goal: Patient/family/caregiver demonstrates understanding of disease process, treatment plan, medications, and discharge instructions Outcome: Progressing Problem: Potential for Compromised Skin Integrity Goal: Skin integrity is maintained or improved Outcome: Progressing Goal: Nutritional status is improving Outcome: Progressing Problem: Bowel Incontinence Goal: Perineal Skin Integrity is Maintained or Improved Outcome: Progressing Problem: Knowledge Deficit Goal: Patient and/or family demonstrate readiness to learn Outcome: Progressing Goal: Patient and/or family verbalizes understanding of condition and treatment, education, and/or performs desired skill Outcome: Progressing Problem: Altered neuro status Goal: Achieves stable or improved neurological status Outcome: Progressing Problem: Risk for / Impaired Cognition Goal: Patient has stable or improving cognition Outcome: Progressing Problem: Risk for delirium Goal: Prevents and manages delirium Outcome: Progressing Problem: Risk for / Impaired Communication Goal: Establish communication to meet the patient/caregiver needs Outcome: Progressing Problem: Risk for / Impaired Mobility (Activity Intolerance) Goal: Mobility/activity is maintained at optimum level for patient Outcome: Progressing Problem: Self-Care Deficit Goal: Achieves maximum function and self-care Outcome: Progressing Problem: Risk for / Imbalanced Nutrition Goal: Maintains adequate nutritional intake Outcome: Progressing Problem: Risk for/Anxiety Goal: Demonstrates ability to cope effectively Outcome: Progressing Problem: Risk for/ impaired bladder elimination (bowel/bladder) Goal: Patient has stable or improved bladder elimination Outcome: Progressing Problem: Risk for /Impaired bowel Goal: Patient has stable or improved bowel elimination Outcome: Progressing Problem: Risk for Infection Goal: Absence of infection and prevention of transmission during hospitalization Outcome: Progressing Problem: Risk for / Impaired Skin Integrity Goal: Skin integrity is maintained or improved Outcome: Progressing Problem: Risk for altered SNS response Goal: Reduce risk and mointor for uninhibited response of sympathetic nervous system Outcome: Progressing Problem: Risk for seizure activity Goal: Absence of seizures Outcome: Progressing Goal: Remains free of injury related to seizures activity Outcome: Progressing Problem: Risk for Aspiration Goal: Patient is free of signs of aspiration and the risk of aspiration is decreased Outcome: Progressing Problem: Fall Safety: [place] Precautions Goal: Free from fall injury Outcome: Progressing Problem: Fall Huddle Goal: Free from Fall Injury Outcome: Progressing Problem: Fall Prevention: Neglect/Hemiparesis Bundle Goal: Patient will be free from Fall Injury Outcome: Progressing * PT Treatment Note - Sumaya Gooden PT - 11/25/2022 11:20 AM CDT PT Treatment Patient Name: Consuelo Darby Patient Birthdate: 1980 Patient Subjective Report - Reports headache on R side Pain Assessment Pain Context: Therapy Assessment Prior to Treatment (11/25/221119) Pain Assessment: NRS 0-10 (11/25/221119) Pain Score: 4 - Moderate Pain (11/25/221119) Pain Severity - NRS (Calculated): Moderate (11/25/221119) Pain Type: Acute pain (11/25/221119) Pain Location: Head (11/25/221119) Pain Orientation: Right (11/25/221119) Pain Descriptors: Headache (11/25/221119) Pain Onset: Ongoing (11/25/221119) Pain Frequency: Constant/continuous (11/25/221119) Pre-therapy pain intervention required: Nurse notified (11/25/221119) Pain Interventions Education Provided: Patient (11/25/221119) Non-Pharmacologic Pain Interventions: Distractions, Exercise/Activity, Rest, Position/Reposition (11/25/221119) Emotional/Spiritual Pain Interventions: Empathetic Discussion (11/25/221119) TRANSFERS: Supine to sit from air mattress set to auto-firm with HOB elevated with max A of one for trunk liftassist and L UE and LE management Attempted Myra Flex machine with L sling, however, sling starting to slide up and near feeding tube, so client lowered to bed and transferred with sliding board Bed with low air mattress set to auto-firm with sliding board with max A of one and mod A of another for lift assist and managing L LE, sling on L UE for glenohumeral support Sit to/from airconditioning drafting officer parallel bars with max A for L LE knee block, anterior weight shift, lift assist; sling on L UE for glenohumeral support; stood x 2 times GAIT: Ambulates 8 feet in parallel bars with max A of one and close w/c follow for safety. Requiresassist with advancing and blocking L LE, weight shift, cues for upright posture and to look to midline. SITTING BALANCE: Sitting on edge of air mattress set to auto-firm with mod to min A Using R UE for support THERAPEUTIC EXERCISE: Sitting in w/c: PROM stretch to L plantar flexors x 30 second hold x 3 reps; hip abd/add, knee flex/ext, and hip flex/ext x 10 reps Discussed using abdominal binder with client to protect feeding tube during transfers. Client continues to have R side headache pain and occasional pain noted in L hip. Client is continuing to tolerate gait in parallel bars. Pain Evaluation and Follow-up Pain Reassessment: 4 (headache and L hip) (11/25/22 1145) Nursing notified of patient's pain assessment: Primary Nurse (11/25/22 1145) Therapy Minutes Individual Concurrent Co-Treat Individual (PT) Time In : 1120 Time Out: 1206 Total Time with Patient (Min): 46 min SUMAYA GOODEN, PT 11/25/2022 * Plan of Care - Pearl Richards RN - 11/24/2022 7:29 PM CDT Problem: Infection Goal: Absence of infection and prevention of transmission during hospitalization Outcome: Progressing Flowsheets (Taken 11/21/2022 1513 by Crissy Georges, RN) Absence of infection and prevention of transmission during hospitalization: Assess and monitor for signs and symptoms of infection and vital signs Problem: Pain Goal: Patient's Pain/Discomfort is Manageable Outcome: Progressing Flowsheets (Taken 11/20/2022 0143 by Archie Loja, RN) Patient's Pain/Discomfort is Manageable: Assess pain level Include patient/family/caregiver in decisions related to pain management Provide Emotional/Spiritual Support Administer medications as ordered Reassess patient's response and tolerance to discomfort Offer non-pharmocological pain management interventions Assess pain using FLACC, PAINAD or Chap[place]-Guidry Problem: Potential for Compromised Skin Integrity Goal: Skin integrity is maintained or improved Outcome: Progressing Flowsheets (Taken 11/19/2022 0141 by Archie Loja, RN) Skin Integrity is Maintained or Improved: Collaborate with WOCN/Wound Nurse Relieve pressure to bony prominences, avoid shearing Assess skin and skin risk for breakdown Turn Patient Keep skin clean and dry Monitor and teach appropriate hygiene practices Goal: Nutritional status is improving Outcome: Progressing Flowsheets (Taken 11/24/2022 1927) Nutritional Status is Improving: Collaborate with clinical finishing inspector Problem: Bowel Incontinence Goal: Perineal Skin Integrity is Maintained or Improved Outcome: Progressing Flowsheets (Taken 11/20/2022 0143 by Archie Loja, RN) Perineal Skin Integrity is Maintained or Improved: Keep skin clean and dry Collaborate with wound, ostomy, and continence Nurse Provide privacy when changing patients incontinence device to maintain their dignity Problem: Risk for/Anxiety Goal: Demonstrates ability to cope effectively Outcome: Progressing Flowsheets (Taken 11/24/20221926) Demonstrates ability to cope effectively: Assess patient for signs/symptoms of anxiety or ineffective coping Encourage verbalization of feelings/concerns/expectations Problem: Risk for/ impaired bladder elimination (bowel/bladder) Goal: Patient has stable or improved bladder elimination Outcome: Progressing Flowsheets (Taken 11/23/2022 0232 by Bradley Spain) Patient has stable or improved bladder elimination: Assess voiding pattern, incontinence, urine output, note reports of urinary frequency, urgency, burning, incontinence, nocturia, and size or force of urinary stream Monitor and Record Intake and Output Establish bladder training program as appropriate Report changes or abnormal assessment findings as appropriate to provider Assess patient's current bladder function Provide adjunct therapy as ordered by provider Consult to appropriate specialty as appropriate Problem: Risk for Infection Goal: Absence of infection and prevention of transmission during hospitalization Outcome: Progressing Flowsheets (Taken 11/24/20221926) Absence of infection and prevention of transmission during hospitalization: Assess and monitor signs and symptoms of infection and vital signs Monitor lab and diagnostic values as appropriate Monitor all insertion sites i.e., indwelling lines, tubes and driains, obtain order to remove device when no longer clinically necessary Problem: Risk for / Impaired Skin Integrity Goal: Skin integrity is maintained or improved Outcome: Progressing Flowsheets (Taken 11/24/20221926) Skin integrity is maintained or improved: Assess skin and skin risk for breakdown Turn patient Relieve pressure to bony prominences, avoid shearing Problem: Risk for Aspiration Goal: Patient is free of signs of aspiration and the risk of aspiration is decreased Outcome: Progressing Flowsheets (Taken 11/24/20221926) Patient is free of signs of aspiration and the risk of aspiration is decreased: Assess for s/s of aspiration including coughing, choking, throat clearing, gurgly voice, and changes in resp status. Make NPO and contact provider to report abnormal changes Elevate head of bed while feeding and for at least 30 minutes after feeding is complete Problem: Fall Safety: [place] Precautions Goal: Free from fall injury Outcome: Progressing * Plan of Care - Ronda Monreal RD - 11/24/2022 3:04 PM CDT Problem: Inadequate Oral Intake Description: Oral food/beverage intake that is less than established reference standards or recommendations based on physiological needs. Related to: dysphagia As evidenced by: need for TF to meet nutritional needs. Goal: Maintain Nutritional Status Outcome: Progressing Flowsheets (Taken 11/20/[address]) Enteral and Parenteral Nutrition: Enteral nutrition * [employer] OFFICER Treatment Note - [facility] Mehdi - 11/24/2022 1:48 PM CDT Speech Language Pathologist Treatment Patient Name: Consuelo Darby Patient Birthdate: 1980 Patient Subjective Report - That feels so good. Pain Assessment Pain Context: Therapy Assessment Prior to Treatment (11/24/22 134) Pain Assessment: NRS 0-10 (11/24/221347) Pain Score: 4 - Moderate Pain (11/24/22 134) Pain Severity - NRS (Calculated): Moderate (11/24/22 1348) Pain Type: Acute pain (11/24/22 134) Pain Location: Other (Comment) (puentes site) (11/24/22 134) Pain Descriptors: Discomfort (11/24/22 134) Pain Onset: Ongoing (11/24/22 134) Pain Frequency: Constant/continuous (11/24/22 134) Pre-therapy pain intervention required: Nurse notified (11/24/221347) Pain Interventions Education Provided: Patient (11/24/22 143) Non-Pharmacologic Pain Interventions: Distractions (11/24/22 143) Emotional/Spiritual Pain Interventions: Emotional Support (11/24/22 143) Cognitive Communication: Immediate memory, Orientation, Basic attention and Task persistence Dysphagia Treatment: Oral care, Therapeutic trials, Other (comment) and Swallow strategy training (Oral movement) Recommended diet: NPO for Liquids - No Liquids by Mouth, NPO for Solids, No Medication PO, Non-oralmeans of nutrition and hydration (Comment) and Other (Comment) (PEG; may have ice chips 1 at a timewith staff only.) Patient/Caregiver Training: Completed with patient, Therapy goals and treatment plan, Cognitive strategies, Communication strategies, Dysarthria, Swallow strategies and Oral hygiene Is patient a candidate for SM Water Protocol? No Why is the patient not a candidate for water protocol? Other (comment) (Reduced oral motor functionand control) ST Narrative:: 1. Patient was seen for therapy in her room, seated in tilt in space wheelchair; alert and cooperative with all tasks. Patient's and parents were present for family training. 2. [employer] OFFICER discussed speech therapy goals, interventions, and progress with family with regards to swallowing function, speech production, and cognition. Family verbalized understanding of the therapy goals. 3. Discussed the importance of good oral care. Oral care was provided using a moist swab. Patient'smouth appeared clean with moist, pink mucosa. Minimal dry skin noted on the lips. 4. Patient was presented with ice chip trials x6. Patient was able to contain the ice chip in the oral cavity and swallow with no clinical signs of aspiration. She was given a small amount of water on a spoon x4 with cough resulting on 2 of the 4 swallows. Discussed the recommendation for MBS next w twenty-nine palms. 5. Discussed information regarding left neglect and activities to target left side awareness. Patient was able to to tolerate wearing her glasses today and was able to see family photographs hanging on the wall. 6. Patient remained in her room with call light and phone left within reach. Chair alarm activated.Family was present in the room. ST Session Outcomes: Patient/family education progressing, Progressing toward STGs, Tolerated treatment well and Minimal cues during session ST Summary Plan of Care: Continue with current plan of care Pain Evaluation and Follow-up Response to Therapy Interventions: Other (comment) (No change) (11/24/221434) Pain Reassessment: 4 (11/24/221434) Nursing notified of patient's pain assessment: Primary Nurse (11/24/221434) Therapy Minutes Individual Concurrent Co-Treat Time In : 1348 Time Out: 1435 Breaks/Pauses (Min): 0 mins Total Time with Patient (Min): 47 min Missed Minutes : [address] 11/24/2022 * PT Treatment Note - Kellie Moran, PT - 11/24/2022 1:00 PM CDT PT Treatment Patient Name: Cnosuelo Darby Patient Birthdate: 1980 Patient Subjective Report - pt reports feeling ok. Pain Assessment Pain Context: Therapy Assessment Prior to Treatment (11/24/22 1300) Pain Assessment: None/denies pain (11/24/22 1300) Weight-bearing additional comments: Helmet in place while upright. Endurance: Fair Therapeutic Activities and Neuromuscular Re-education: Pt up in tilt in space w/c upon arrival. Hooked to tube feedings, RN removed from feedings for PT session. Pt's Salo and parents present for initial training. Family under the impression they came for tube feeding trainings-- RN aware and will review after scheduled therapy. CM also notified. Discussed current use of tilt in space w/c for trunk and head support but progressing and potentialgoal for regular w/c vs tilt in space but continue to monitor. Pt with prism glasses in place to promote visual tracking left- reviewed with family. In therapy gym: Use of myra-flex stand lift for transfer w/c to edge of [facility] mat. Static sitting with max initially, then varies from min to mod for trunk support. Gradual left/posterior lean. Cues to promote midline head posture, tracking left. Able to bring eyes to midline with visual target. Discussed with family positioning during conversation to promote left scanning/tracking. Use of rail on right for sit to/from stand from edge of the mat. Sheet support under hips. Max support anteriorly for lift assist, left knee block and trunk support. Min of her Salo at sheet support and trunk. Pt tolerated stance xgrossly 20 seconds, 2x. Mod/max left knee block with stance. Use of transfer board for level transfer mat to tilt in space w/c. Max of one and mod of another for lift assist, trunk control. assisted with use of drawsheet, therapist in front for main help in transfer. In parallel bars: sling to support left UE and francisco wrap to assist left ankle DF. Pt ambulated 5ft with max to advance and block left leg, trunk support. Mod of another for trunk control. Mod/max cuesfor right hand placement, sequencing. W/c follow for safety. PT Treatment Outcomes:: Safety device reapplied and Patient tolerated treatment well PT Summary:: Ms. Darby tolerated the session well this date, headache pain much improved. Salo and parents present for session. Began initial discussed regarding DME, w/c, transfer status, etc. Discussed progress and goal to progress to regular w/c vs tilt in space. Pt using a little lift forbed to/from chair transfers in the room. Demonstrated use of myra flex lift and transfer board thisdate and discussed need to further assess progress and DME needs. Voiced understanding and pleased with progress. Ms. Darby works hard and will continue to benefit from intensive therapy to maximize functional gains and additional hands on training is recommended as pt progresses with mobility. PT Summary Plan of Care: Continue with current plan of care Pain Evaluation and Follow-up Pain Reassessment: 0, No pain (11/24/22 1347) Therapy Minutes Individual Concurrent Co-Treat Individual (PT) Time In : 1300 Time Out: 1347 Total Time with Patient (Min): 47 min KELLIE MORAN, PT 11/24/2022 * OT Treatment Note - Roland Avendano, OT - 11/24/2022 10:30 AM CDT Occupational Therapy Treatment Patient Name: Consuelo Darby Patient Birthdate: 1980 Patient Subjective Report - No headache today, just some gas pains. Pain Assessment Pain Context: Therapy Assessment Prior to Treatment (11/24/22 103) Pain Assessment: NRS 0-10 (11/24/22 103) Pain Score: 2 - Mild Pain (11/24/22 103) Pain Severity - NRS (Calculated): Mild (11/24/22 103) Pain Location: Abdomen (gas pain) (11/24/22 103) Pain Interventions Education Provided: Patient (11/24/22 1240) Non-Pharmacologic Pain Interventions: Distractions, Exercise/Activity, Position/Reposition (11/24/22 1240) ADL Training: ADL Training Narrative: EATING: ORAL HYGIENE: supervision and cues, used Vinicius suction toothbrush kit TOILETING: dependent, two person assist with use of Myra Flex lift BATHING: Ms Darby used R hand to hold washcloth to wash face. She declined other bathing tasks, reporting that she already washed up earlier today. Assist needed for washing L hand thoroughly. UB DRESSING: LB DRESSING: dependent with use of Myra flex lift PUTTING ON/TAKING OFF FOOTWEAR: dependent for donning shoes ROLL LEFT AND RIGHT: SIT TO LYING: LYING TO SITTING: SIT TO STAND: dependent with use of Myra Flex lift BED TO CHAIR TRANSFER: dependent with use of Myra flex, two person assist TOILET TRANSFER: dependent with use of Myra flex, two person assist; pt used toilet in OT gym. Updated board in room to recommend use of Myra Flex lift to transfer patient to the toilet or commode ifshe is sitting upright in wheelchair. (Not recommended for use with low air low mattress at this time b/c of pt's impaired sitting balance--little lift use recommended with use of PELON mattress). OT Therapeutic Activity: Therapeutic Exercise: While sitting upright in wheelchair, Ms Darby worked on sitting balance, needing moderate assist for unsupported sitting balance. Ms Darby participated in L UE PROM and positioning--no AROM noted in L UE. She tolerated PROM to about 90 degrees shoulder flexion and abduction, and full flexion and extension of elbow, supination/pronation, wrist and fingers. She denies pain in L UE with PROM. L UE positioned on half lap tray. Ms Darby attended vision clinic and was evaluated by Dr Galvez. He confirmed difficulties with pursuits (especially to the left) and recommended yolked prisms to be attached to her eye glasses. (To help her eyes with scanning to the left). He instructed that the prism glasses should be removed before she goes home. Ms Darby sat on EOM for 10 min with mod assist for sitting balance. Treatment, Outcomes and Plan: OT Narrative:: Ms Darby tolerated session well. She did not c/o headache throughout session. She did verbalize discomfort with helmet but was not restless and left it on throughout session (removed briefly for washing face). Ms Darby used toilet (two person assist) and was continent. Continued intensive OT recommended. OT Treatment Outcomes:: Patient tolerated treatment well, Safety device reapplied, Patient is progressing toward STG(s), Improved ADL performance and Improved ability to perform functional transfers OT Summary Plan of Care: Continue with current plan of care Pain Evaluation and Follow-up Pain Reassessment: 2 (hips) (11/24/22 1240) Nursing notified of patient's pain assessment: Primary Nurse (11/24/22 1240) Therapy Minutes Individual Concurrent Co-Treat Individual (OT) Time In : 1030 Time Out: 1202 Total Time with Patient (Min): 92 min ROLAND AVENDANO OT 11/24/2022 * Plan of Care - Gogo Weber RN - 11/24/2022 10:08 AM CDT Problem: Infection Goal: Absence of infection and prevention of transmission during hospitalization Outcome: Progressing Problem: Knowledge Deficit Goal: Patient and/or family demonstrate readiness to learn Outcome: Progressing Goal: Patient and/or family verbalizes understanding of education, and/or performs desired skill Outcome: Progressing Problem: Discharge Planning Goal: Discharge to home or other facility with appropriate resources Outcome: Progressing Goal: supervisor engraving will develop a plan to decrease their burden and enhance comfort in role Outcome: Progressing Problem: Pain Goal: Patient's Pain/Discomfort is Manageable Outcome: Progressing Problem: Knowledge Deficit Goal: Patient/family/caregiver demonstrates understanding of disease process, treatment plan, medications, and discharge instructions Outcome: Progressing Problem: Potential for Compromised Skin Integrity Goal: Skin integrity is maintained or improved Outcome: Progressing Goal: Nutritional status is improving Outcome: Progressing Problem: Bowel Incontinence Goal: Perineal Skin Integrity is Maintained or Improved Outcome: Progressing Problem: Knowledge Deficit Goal: Patient and/or family demonstrate readiness to learn Outcome: Progressing Goal: Patient and/or family verbalizes understanding of condition and treatment, education, and/or performs desired skill Outcome: Progressing Problem: Altered neuro status Goal: Achieves stable or improved neurological status Outcome: Progressing Problem: Risk for / Impaired Cognition Goal: Patient has stable or improving cognition Outcome: Progressing Problem: Risk for delirium Goal: Prevents and manages delirium Outcome: Progressing Problem: Risk for / Impaired Communication Goal: Establish communication to meet the patient/caregiver needs Outcome: Progressing Problem: Risk for / Impaired Mobility (Activity Intolerance) Goal: Mobility/activity is maintained at optimum level for patient Outcome: Progressing Problem: Self-Care Deficit Goal: Achieves maximum function and self-care Outcome: Progressing Problem: Risk for / Imbalanced Nutrition Goal: Maintains adequate nutritional intake Outcome: Progressing Problem: Risk for/Anxiety Goal: Demonstrates ability to cope effectively Outcome: Progressing Problem: Risk for/ impaired bladder elimination (bowel/bladder) Goal: Patient has stable or improved bladder elimination Outcome: Progressing Problem: Risk for /Impaired bowel Goal: Patient has stable or improved bowel elimination Outcome: Progressing Problem: Risk for Infection Goal: Absence of infection and prevention of transmission during hospitalization Outcome: Progressing Problem: Risk for / Impaired Skin Integrity Goal: Skin integrity is maintained or improved Outcome: Progressing Problem: Risk for altered SNS response Goal: Reduce risk and mointor for uninhibited response of sympathetic nervous system Outcome: Progressing Problem: Risk for seizure activity Goal: Absence of seizures Outcome: Progressing Goal: Remains free of injury related to seizures activity Outcome: Progressing Problem: Risk for Aspiration Goal: Patient is free of signs of aspiration and the risk of aspiration is decreased Outcome: Progressing Problem: Fall Safety: [place] Precautions Goal: Free from fall injury Outcome: Progressing Problem: Fall Huddle Goal: Free from Fall Injury Outcome: Progressing Problem: Fall Prevention: Neglect/Hemiparesis Bundle Goal: Patient will be free from Fall Injury Outcome: Progressing * Plan of Care - Awilda Gonsalves RN - 11/24/2022 3:04 AM CDT Problem: Discharge Planning Goal: Discharge to home or other facility with appropriate resources Outcome: Progressing Flowsheets (Taken 11/24/2022 0304) Discharge to home or other facility with appropriate resources: Identify barriers to discharge with patient and caregiver Arrange for needed discharge resources and transportation as appropriate Identify discharge learning needs (meds, wound care, etc) Arrange for interpreters to assist at discharge as needed Refer to Case Management Department for Coordinating discharge planning for if the patient needs post-hospital services based on physician order or complex needs related to functional status, cognitive ability or social support system * [employer] Treatment Note - [facility] Mehdi - 11/23/2022 2:11 PM CDT Speech Language Pathologist Treatment Patient Name: Consuelo Darby Patient Birthdate: 1980 Patient Subjective Report - Can I go to bed? I'm so tired. Pain Assessment Pain Context: Therapy Assessment Prior to Treatment (11/23/221410) Pain Assessment: None/denies pain (11/23/221410) Cognitive Communication: Immediate memory, Orientation, Basic attention, Task persistence and Word problems Dysphagia Treatment: Oral care, Therapeutic trials, Other (comment), Swallow strategy training and Neurosensory input/stimulation (Oral movement) Recommended diet: NPO for Liquids - No Liquids by Mouth, NPO for Solids, No Medication PO, Non-oralmeans of nutrition and hydration (Comment) and Other (Comment) (PEG; may have ice chips 1 at a timewith staff only.) Patient/Caregiver Training: Completed with patient, Therapy goals and treatment plan, Cognitive strategies, Communication strategies, Dysarthria, Swallow strategies and Oral hygiene Is patient a candidate for SM Water Protocol? No Why is the patient not a candidate for water protocol? Other (comment) (Reduced oral motor functionand control) ST Narrative:: 1. Patient was seen for therapy in her room, seated in tilt in space wheelchair; alert and cooperative with all tasks. Patient was not agitated or uncomfortable as she was yesterday. 2. Patient was provided with oral care using a moist swab. Patient's mouth appeared clean with moist, pink mucosa. Minimal dry skin noted on the lips. 3. Patient was presented with ice chip trials x6. Patient was able to contain the ice chip in the oral cavity and swallow with no clinical signs of aspiration. She was given a small amount of water on a spoon x4 with cough resulting on 1 of the 4 swallows. Discussed the recommendation for MBS next w twenty-nine palms. 4. Attempted to begin the Cognitive Linguistic Quick Test; however, patient was unable to see the large pictures on the pages for the confrontational naming task. Patient would be unable to complete the additional visual portions of the test due to significant left visual field impairment. 5. Patient had difficulty with solving basic math reasoning word problems, with maximal cueing required. 6. Patient remained in her room with call light and phone left within reach. Chair alarm activated. ST Session Outcomes: Patient/family education progressing, Progressing toward STGs, Moderate cues during session and Tolerated treatment well ST Summary Plan of Care: Continue with current plan of care Pain Evaluation and Follow-up Nursing notified of patient's pain assessment: Not indicated - pain score 2 or less (11/23/22 1448) Therapy Minutes Individual Concurrent Co-Treat Time In : 1411 Time Out: 1448 Breaks/Pauses (Min): 0 mins Total Time with Patient (Min): [address] 11/23/2022 * PT Treatment Note - Tia Felix, PT - 11/23/2022 1:00 PM CDT PT Treatment Patient Name: Consuelo Darby Patient Birthdate: 1980 Patient Subjective Report - I'm having a good day. I needed a good day. Agreeable to PT. Pleasantand motivated. Slightly flat affect. R gaze preference, L neglect. Pain Assessment Pain Context: Therapy Assessment Prior to Treatment (11/23/22 1301) Pain Assessment: None/denies pain (11/23/22 1301) Bed Mobility: Performed on bed Bed Mobility Comment: Bed set to auto-firm : Supine to sit with max A for trunk and LLE; cues for technique, L attention, safety Gait Analysis: 3' x1, 8' x1, 10' x1 in // bars with max A x1 for balance and LLE management; L UE sling for glenohumeral support, francisco wrap for L DF assist; 2nd person for close w/c follow; total assist to advance and stabilize/block L LE - no active movement observed; hemiparetic gait pattern noted; demonstrates decreased trunk and head control noted at times (improved with cues), decreased wt shift R, R gaze, L neglect Trials/Comments1: Bed-w/c via stand-pivot with max A x1 and min A of another for balance and safety; cues for safety, L attention, technique; L knee block, leans L Trials/Comments 2: Sit-airconditioning drafting officer // bars with max A x1 for force production and L LE; cues for postioning, midline control/awareness, technique, and safety; L knee block Trials/Comments 3: W/c to/from [facility] [place] [place] with mechanical lift ( Myra Flex ); dep x2 for postioning and safety (since it was the first attempt); cues for technique and pt assist; good alignment and performance noted; RN observed; will continue to trial in therapy and notify nursing as appropriate Therapeutic Activities and Neuromuscular Re-education: BALANCE/NMRE: -Static sitting balance EOB (set to autofirm ) with min/mod A for midline stability; cues for safety, midline gaze, L attention; x5 min -Static standing with R UE support on // bars, max A x1 for balance and L knee block; mirror utilized for visual feedback and attention to task; 1 min x2 -Static standing with support of sling attachments from mechanical lift; 3 attempts during toileting tasks; dep for hygiene, continent of extra-small BM PT Treatment Outcomes:: Safety device reapplied, Qualitative gains in function, Patient tolerated treatment well, Cues needed for safety, Goals met for this session and Improved ambulation performance PT Summary:: Significantly improved activity tolerance noted today. Progressed to gait training in // bars. Cont PT POC to maximize neuromuscular recovery, decrease fall risk, and promote level of safety and independence with functional mobility. PT Summary Plan of Care: Continue with current plan of care Pain Evaluation and Follow-up Pain Reassessment: 0, No pain (11/23/22 1400) Nursing notified of patient's pain assessment: Not indicated - pain score 2 or less (11/23/22 1400) Therapy Minutes Individual Concurrent Co-Treat Individual (PT) Time In : 1300 Time Out: 1410 Total Time with Patient (Min): 70 min TIA FELIX PT, DPT 11/23/2022 * Plan of Care - Gogo Weber RN - 11/23/2022 11:44 AM CDT Problem: Infection Goal: Absence of infection and prevention of transmission during hospitalization Outcome: Progressing Problem: Knowledge Deficit Goal: Patient and/or family demonstrate readiness to learn Outcome: Progressing Goal: Patient and/or family verbalizes understanding of education, and/or performs desired skill Outcome: Progressing Problem: Discharge Planning Goal: Discharge to home or other facility with appropriate resources Outcome: Progressing Goal: supervisor engraving will develop a plan to decrease their burden and enhance comfort in role Outcome: Progressing Problem: Pain Goal: Patient's Pain/Discomfort is Manageable Outcome: Progressing Problem: Knowledge Deficit Goal: Patient/family/caregiver demonstrates understanding of disease process, treatment plan, medications, and discharge instructions Outcome: Progressing Problem: Potential for Compromised Skin Integrity Goal: Skin integrity is maintained or improved Outcome: Progressing Goal: Nutritional status is improving Outcome: Progressing Problem: Bowel Incontinence Goal: Perineal Skin Integrity is Maintained or Improved Outcome: Progressing Problem: Knowledge Deficit Goal: Patient and/or family demonstrate readiness to learn Outcome: Progressing Goal: Patient and/or family verbalizes understanding of condition and treatment, education, and/or performs desired skill Outcome: Progressing Problem: Altered neuro status Goal: Achieves stable or improved neurological status Outcome: Progressing Problem: Risk for / Impaired Cognition Goal: Patient has stable or improving cognition Outcome: Progressing Problem: Risk for delirium Goal: Prevents and manages delirium Outcome: Progressing Problem: Risk for / Impaired Communication Goal: Establish communication to meet the patient/caregiver needs Outcome: Progressing Problem: Risk for / Impaired Mobility (Activity Intolerance) Goal: Mobility/activity is maintained at optimum level for patient Outcome: Progressing Problem: Self-Care Deficit Goal: Achieves maximum function and self-care Outcome: Progressing Problem: Risk for / Imbalanced Nutrition Goal: Maintains adequate nutritional intake Outcome: Progressing Problem: Risk for/Anxiety Goal: Demonstrates ability to cope effectively Outcome: Progressing Problem: Risk for/ impaired bladder elimination (bowel/bladder) Goal: Patient has stable or improved bladder elimination Outcome: Progressing Problem: Risk for /Impaired bowel Goal: Patient has stable or improved bowel elimination Outcome: Progressing Problem: Risk for Infection Goal: Absence of infection and prevention of transmission during hospitalization Outcome: Progressing Problem: Risk for / Impaired Skin Integrity Goal: Skin integrity is maintained or improved Outcome: Progressing Problem: Risk for altered SNS response Goal: Reduce risk and mointor for uninhibited response of sympathetic nervous system Outcome: Progressing Problem: Risk for seizure activity Goal: Absence of seizures Outcome: Progressing Goal: Remains free of injury related to seizures activity Outcome: Progressing Problem: Risk for Aspiration Goal: Patient is free of signs of aspiration and the risk of aspiration is decreased Outcome: Progressing Problem: Fall Safety: [place] Precautions Goal: Free from fall injury Outcome: Progressing Problem: Fall Huddle Goal: Free from Fall Injury Outcome: Progressing Problem: Fall Prevention: Neglect/Hemiparesis Bundle Goal: Patient will be free from Fall Injury Outcome: Progressing * OT Treatment Note - Roland Avendano OT - 11/23/2022 11:15 AM CDT Occupational Therapy Treatment Patient Name: Consuelo Darby Patient Birthdate: 1980 Patient Subjective Report - They wake me up every 4 hours to cath me. I can't pee yet. Pain Assessment Pain Context: Therapy Assessment Prior to Treatment (11/23/22 1116) Pain Assessment: NRS 0-10 (11/23/22 1116) Pain Score: 3 - Mild Pain (11/23/22 1116) Pain Severity - NRS (Calculated): Mild (11/23/22 1116) Pain Location: Hip (11/23/22 1116) Pain Orientation: Left (11/23/22 111) Pain Interventions Education Provided: Patient (11/23/22 1300) Non-Pharmacologic Pain Interventions: Distractions, Exercise/Activity, Position/Reposition (11/23/22 1300) ADL Training: ADL Training Narrative: EATING: ORAL HYGIENE: min a for brushing teeth using Vinicius suction kit; assist needed for thoroughness TOILETING: BATHING: pt washed face while sitting in w/c after set up, using R UE UB DRESSING: LB DRESSING: PUTTING ON/TAKING OFF FOOTWEAR: dependent for donning shoes ROLL LEFT AND RIGHT: SIT TO LYING: LYING TO SITTING: SIT TO STAND: BED TO CHAIR TRANSFER: TOILET TRANSFER: OT Therapeutic Activity: Therapeutic Exercise: Pt worked on upright sitting balance while in w/c, sitting up from back of wheelchair; she needed min to mod assist for maintaining unsupported sitting balance for 1-2 min x 3. Ms Darby used 2# weights for R UE strengthening, 20 reps each of bicep curls, shoulder press and punches. She participated in L UE PROM and positioning. No AROM noted in L UE during this session. PROM doneto about 90 degrees shoulder flexion and abduction. Briefly began instruction on self ROM. Ms Darby presents with L inattention, possible left field cut. She will be evaluated by neuro farm implement engine mechanic tomorrow. Treatment, Outcomes and Plan: OT Narrative:: Ms Darby tolerated session well. She denied headache throughout session and only asked to take helmet off one time to wash her face and scratch her head. She then tolerated wearing of helmet throughout session. Ms Darby is making progress with sitting up out of bed. She was tilted back at end of session for pressure relief and rest. Continued OT recommended. OT Treatment Outcomes:: Safety device reapplied, Patient tolerated treatment well, Patient is progressing toward STG(s) and Goals met for this session OT Summary Plan of Care: Continue with current plan of care Pain Evaluation and Follow-up Pain Reassessment: 0, No pain (11/23/22 1300) Therapy Minutes Individual Concurrent Co-Treat Individual (OT) Time In : 1115 Time Out: 1201 Total Time with Patient (Min): 46 min ROLAND AVENDANO, OT 11/23/2022 * PT Treatment Note - Kellie Moran, PT - 11/23/2022 9:40 AM CDT PT Treatment Patient Name: Consuelo Darby Patient Birthdate: 1980 Patient Subjective Report - pt reports feeling much better today, states no headache at this time. Voiced didn't sleep well due to straight cath every 4 hrs. Pain Assessment Pain Context: Therapy Assessment Prior to Treatment (11/23/22 0940) Pain Assessment: None/denies pain (11/23/22 09) Therapeutic Activities and Neuromuscular Re-education: Pt up in tilt in space chair upon arrival, on tube feedings., helmet on Pt transferred via [facility] to [facility]. Initial sit with mod/max assist to obtain uprightposition, once centered: able to hold static sitting with mod support on left to control gradual left lean, posterior lean. Pt with right gaze preference and cervical rotation to right. With verbal and tactile cues- tracks just short of midline, difficulty maintaining visual scan left. Sling applied to support left UE. Use of grab bar on right: mod/max to bring wt anterior to upright sitting. Use of sheet support at hips: sit to stand with mod/max anteriorly and mod support on left side forlift and trunk control. Max left knee block. Pt with excessive trunk extension with initial stance,mod to bring forward to neutral. Gradual list left with cues for wt shift right/midline. Tolerates stance grossly 30-40seconds then sitting rest break, slight recline on mat pad. Repeated x5, last one stood grossly 10 seconds. Mat back to tilt in space w/c with use of transfer board: max of two for lift assist, left knee block, trunk control. Pt does attempt to assist with right side. Headrest repositioned for improved support. Pt has half lap tray to support left UE when up. PT Treatment Outcomes:: Safety device reapplied, Patient tolerated treatment well and Patient is progressing toward STG PT Summary:: Ms. Darby tolerated the session this date, much improved headache, nausea. She works very hard and will continue to benefit from intensive therapy to maximize functional gains. PT Summary Plan of Care: Continue with current plan of care Pain Evaluation and Follow-up Pain Reassessment: 0, No pain (11/23/22 1033) Therapy Minutes Individual Concurrent Co-Treat Individual (PT) Time In : 0940 Time Out: 1033 Total Time with Patient (Min): 53 min KELLIE MORAN, PT 11/23/2022 * Plan of Care - Bradley juanima - 11/23/2022 2:33 AM CDT Problem: Risk for/ impaired bladder elimination (bowel/bladder) Goal: Patient has stable or improved bladder elimination Outcome: Not Progressing Flowsheets (Taken 11/23/2022 0232) Patient has stable or improved bladder elimination: Assess voiding pattern, incontinence, urine output, note reports of urinary frequency, urgency, burning, incontinence, nocturia, and size or force of urinary stream Monitor and Record Intake and Output Establish bladder training program as appropriate Report changes or abnormal assessment findings as appropriate to provider Assess patient's current bladder function Provide adjunct therapy as ordered by provider Consult to appropriate specialty as appropriate * Plan of Care - Bradley Spain - 11/23/2022 2:32 AM CDT Problem: Pain Goal: Patient's Pain/Discomfort is Manageable Outcome: Progressing Flowsheets (Taken 11/20/2022 0143 by Archie Loja, RN) Patient's Pain/Discomfort is Manageable: Assess pain level Include patient/family/caregiver in decisions related to pain management Provide Emotional/Spiritual Support Administer medications as ordered Reassess patient's response and tolerance to discomfort Offer non-pharmocological pain management interventions Assess pain using FLACC, PAINAD or [place] * PT Treatment Note - Kellie Moran, PT - 11/22/2022 1:18 PM CDT PT Treatment Patient Name: Consuelo Darby Patient Birthdate: 1980 Patient Subjective Report - pt reports she's ok, ok for therapy. Pain Assessment Pain Context: Therapy Assessment Prior to Treatment (11/22/221317) Pain Assessment: NRS 0-10 (11/22/221317) Pain Score: 4 - Moderate Pain (lying in bed) (11/22/221317) Pain Severity - NRS (Calculated): Moderate (11/22/221317) Pain Location: Head (11/22/221317) Pain Descriptors: Headache (11/22/221317) Pain Onset: Ongoing (11/22/221317) Pain Frequency: Constant/continuous (11/22/221317) Aggravating Factors: Specified Activity/Other (Comment) (increases to 8-10/10 when sitting upright.) (11/22/221317) Pre-therapy pain intervention required: Patient expressed pain is tolerable/able to proceed (11/22/221317) Pain Interventions Non-Pharmacologic Pain Interventions: Position/Reposition (11/22/22 1351) Therapeutic Activities and Neuromuscular Re-education: Pt in bed upon arrival, on tube feedings. Left leg resting in flexed position, hip external rotation. PROM to left leg in all planes. Noted increase in tone. Improved with ROM. Pt on low air loss mattress for pressure relief. Bed max inflated: supine to sit at edge of bed with max assist of two for LE's, trunk support. Pt attempts to reach initially with right UE for stabilization, max/total to maintain. Upright for grossly 5-7seconds then pt required leaning down to right due to report of increased headache/pain. Max support on left side to block left leg/control slide-- pt alternated between coming to upright position and lateral lean right due to headache when upright. Max to bring to upright and maintain. Min/mod assist of second person at times for trunk control, safety. Pt very restless in attempts at short sitting due to not feeling well, report of headache. Alternated to attempt full upright sitting 5x then pt returned back to supine in bed. Left UE positioned onto pillow. MD notified of pain with upright positioning. PT Treatment Outcomes:: Safety device reapplied and Patient tolerated session fair PT Summary:: Ms. Darby works hard with therapy. Barriers are pain/headache with upright positioning- MD aware. Provided education, support, pt frequently states will it get better regarding headache. She will continue to benefit from intensive therapy to maximize functional gains, improve overallmovement tolerance, education. PT Summary Plan of Care: Continue with current plan of care Pain Evaluation and Follow-up Response to Therapy Interventions: Other (comment) (during session when sitting 10/10 pain. back tosupine and relaxed it improved) (11/22/22 1351) Pain Reassessment: 6 (11/22/22 1351) Nursing notified of patient's pain assessment: Primary Nurse (11/22/22 1351) Therapy Minutes Individual Concurrent Co-Treat Individual (PT) Time In : 1318 Time Out: 1351 Total Time with Patient (Min): 33 min KELLIE MORAN, PT 11/22/2022 * PT Treatment Note - Kellie Moran PT - 11/22/2022 10:31 AM CDT PT Treatment Patient Name: Consuelo Darby Patient Birthdate: 1980 Patient Subjective Report - pt reports a headache but ok for therapy. Pain Assessment Pain Context: Therapy Assessment Prior to Treatment (11/22/22 103) Pain Assessment: NRS 0-10 (11/22/22 103) Pain Score: 8 - Severe Pain (11/22/22 103) Pain Severity - NRS (Calculated): Severe (11/22/221030) Pain Location: Head (11/22/22 103) Pain Descriptors: Headache (11/22/22 103) Pain Onset: Ongoing (11/22/221030) Pain Frequency: Constant/continuous (with upright movement worse) (11/22/221030) Aggravating Factors: Specified Activity/Other (Comment) (upright positioning) (11/22/221030) Pre-therapy pain intervention required: Patient expressed pain is tolerable/able to proceed, Nurse notified (11/22/221030) Pain Interventions Non-Pharmacologic Pain Interventions: Position/Reposition (11/22/22 1133) Bed Mobility Comment: Rolling in bed: rolling left with cues and max assist to complete motion. Rolling right with max assist of two for left side support and complete motion. Therapeutic Activities and Neuromuscular Re-education: Pt up in tilt in space chair upon arrival, hooked up to tube feeding. Brought to therapy gym. Pt vitals taken: BP 125/69, HR 61, O2 sats 96% on room air. Chair elevated upright - pt with increased report of pain, restless requiring chair to be tilted again. RN notified for pain medicine at pt request. PROM to left leg while in chair and left UE. Increased tone noted in left arm and leg RN provided pain meds. Pt reported some nausea but ok to continue. Chair brought up part way then break x1 minute then brought to full upright. Helmet in place on patient during movement. Little pad positioned and initiated lift from chair. Barely cleared hips and pt vomited. Pt very ansy and requesting bed. Frequent cues for deep breathing while we reposition in chair for return to room. Use of little for transfer tilt in space to hospital bed. Total assist to doff shirt and slavatore new one. Sister in law Crystal present and educated on assisting pt with rolling, allow pt to assist with right side. Once supine: PROM to left leg in all planes. Continued tone noted. Dr. Frias notified to requestassess of tone and possible tone management with medication. Discussed increased tone with pt sister Cass and sister in law. Skin Issues Narrative: Multi podus boot placed in left leg in bed. On low air loss mattress. PT Treatment Outcomes:: Safety device reapplied PT Summary:: Ms. Darby tolerated the session fair due to headache and then nausea/vomiting. She responds well to cues but is restless at times and increases with discomfort. Sister Cass and sister in law arrived during session, discussed positioning, tone. Supportive family. Session ended earlydue to pt in bed, sleepy. Will see pt this pm for completion of session. She will continue to benefit from intensive therapy to maximize functional gains and provide family training. PT Summary Plan of Care: Continue with current plan of care Pain Evaluation and Follow-up Pain Reassessment: Unable to Determine/Pt unresponsive/non-verbal (pt sleepy in bed. did not reportpain level at this time) (11/22/22 113) Nursing notified of patient's pain assessment: Primary Nurse (11/22/221132) Therapy Minutes Individual Concurrent Co-Treat Individual (PT) Time In : 1031 Time Out: 1133 Total Time with Patient (Min): 62 min KELLIE MORAN, PT 11/22/2022 * OT Treatment Note - Bridgett Evangelista, OT - 11/22/2022 9:45 AM CDT Occupational Therapy Treatment Patient Name: Consuelo Darby Patient Birthdate: 1980 Patient Subjective Report - my head hurts, can I go back to bed for 2 minutes. Pain Assessment Pain Context: Therapy Assessment During Treatment (11/22/22946) Pain Assessment: NRS 0-10 (11/22/22946) Pain Score: 9 - Severe Pain (11/22/22946) Pain Severity - NRS (Calculated): Severe (11/22/22946) Pain Type: Surgical pain, Acute pain (11/22/22946) Pain Location: Head (11/22/22946) Pain Orientation: Right, Left (11/22/22946) Pain Descriptors: Aching, Throbbing (11/22/22946) Pain Onset: Ongoing (11/22/22946) Pain Frequency: Constant/continuous (11/22/22946) Aggravating Factors: Activity Duration, Anxiety, Positioning (11/22/22946) Pre-therapy pain intervention required: Patient expressed pain is tolerable/able to proceed, Nurse notified (11/22/22946) Pain Interventions Education Provided: Patient (11/22/22946) Non-Pharmacologic Pain Interventions: Distractions, Exercise/Activity, Position/Reposition, Rest (11/22/22946) Emotional/Spiritual Pain Interventions: Emotional Support (11/22/22946) ADL Training: ADL Training Narrative: GROOMING: with dependence for washing hair while reclined in tilt in space wheelchair. OT Therapeutic Activity: Endurance: Poor endurance. Ms. Seals frequently requested to return to bed only after being in w/c for less than an hour. Ms. Seals frequently reported having head pain and left hip pain. Ms. Seals removed helmet on own after helmet was placed and readjusted. Ms. Seals was reclined back in w/c for most of therapy to assist with activity tolerance. Ms. Seals tended to shift body and was fidgeting body in w/c frequently. Ms. Seals became frequently anxious throughout session. ROM: PROM performed to Ms. Seals's left UE. Increased tone noted in left shoulder with Ms. Seals c/o discomfort with movement. Therapist only able to range left shoulder to approximately 70 degrees while Ms. Seals was inclined position in w/c. No passive movement performed at elbow due to IV placement. Ms. Seals was more tolerant of range of motion at distal aspects of left UE. Cognition: Presented with decreased problem solving, memory, insight, response time, reasoning skills. Decreased attention noted, decreased initiation. Visual Perceptual: Ms. Seals presented with right sided gaze preference and left inattention. Attempted to have Ms. Seals attend to left during simple activities at table. Initially four 2 sided colored pegs placed slightly towards right of midline. Ms. Seals asked to turn pegs over. She was able to perform task with cues for initiation, however, required cues to attend to farthest peg on left. Pegs were then placed in midline. Ms. Seals required mod cues to turn head and to attend to far left peg after mod cues to initiate task. When pegs placed to left side of midline, Ms. Seals unable to find pegs without maximal cues. Once she located cues, she needed moderate cues to attend to task as well as to turn head towards left to look towards pegs. When 5 large pegs placed into peg board on left side of board and board at midline, Ms. Seals required maximal cues to turn head towards left side and maximal cues to initiate picking up pegs. She required moderate cues to identify correct color to picking supervisor Treatment, Outcomes and Plan: OT Narrative:: Ms. Seals tolerated tx with frequent encouragement and rest breaks. She would benefit from continued OT services to work on maximizing functional independence. OT Treatment Outcomes:: Safety device reapplied, Patient tolerated treatment poorly, Goals met for this session and Cues needed for safety OT Summary Plan of Care: Continue with current plan of care Pain Evaluation and Follow-up Response to Therapy Interventions: Other (comment) (no significant difference) (11/22/22 1030) Pain Reassessment: 9 (11/22/22 1030) Nursing notified of patient's pain assessment: Primary Nurse (11/22/22 1030) Therapy Minutes Individual Concurrent Co-Treat Individual (OT) Time In : 0945 Time Out: 1030 Total Time with Patient (Min): 45 min BRIDGETT EVANGELISTA OT 11/22/2022 * Plan of Care - Gogo Weber RN - 11/22/2022 9:28 AM CDT Problem: Infection Goal: Absence of infection and prevention of transmission during hospitalization Outcome: Progressing Problem: Knowledge Deficit Goal: Patient and/or family demonstrate readiness to learn Outcome: Progressing Goal: Patient and/or family verbalizes understanding of education, and/or performs desired skill Outcome: Progressing Problem: Discharge Planning Goal: Discharge to home or other facility with appropriate resources Outcome: Progressing Goal: supervisor engraving will develop a plan to decrease their burden and enhance comfort in role Outcome: Progressing Problem: Pain Goal: Patient's Pain/Discomfort is Manageable Outcome: Progressing Problem: Knowledge Deficit Goal: Patient/family/caregiver demonstrates understanding of disease process, treatment plan, medications, and discharge instructions Outcome: Progressing Problem: Potential for Compromised Skin Integrity Goal: Skin integrity is maintained or improved Outcome: Progressing Goal: Nutritional status is improving Outcome: Progressing Problem: Bowel Incontinence Goal: Perineal Skin Integrity is Maintained or Improved Outcome: Progressing Problem: Knowledge Deficit Goal: Patient and/or family demonstrate readiness to learn Outcome: Progressing Goal: Patient and/or family verbalizes understanding of condition and treatment, education, and/or performs desired skill Outcome: Progressing Problem: Altered neuro status Goal: Achieves stable or improved neurological status Outcome: Progressing Problem: Risk for / Impaired Cognition Goal: Patient has stable or improving cognition Outcome: Progressing Problem: Risk for delirium Goal: Prevents and manages delirium Outcome: Progressing Problem: Risk for / Impaired Communication Goal: Establish communication to meet the patient/caregiver needs Outcome: Progressing Problem: Risk for / Impaired Mobility (Activity Intolerance) Goal: Mobility/activity is maintained at optimum level for patient Outcome: Progressing Problem: Self-Care Deficit Goal: Achieves maximum function and self-care Outcome: Progressing Problem: Risk for / Imbalanced Nutrition Goal: Maintains adequate nutritional intake Outcome: Progressing Problem: Risk for/Anxiety Goal: Demonstrates ability to cope effectively Outcome: Progressing Problem: Risk for/ impaired bladder elimination (bowel/bladder) Goal: Patient has stable or improved bladder elimination Outcome: Progressing Problem: Risk for /Impaired bowel Goal: Patient has stable or improved bowel elimination Outcome: Progressing Problem: Risk for Infection Goal: Absence of infection and prevention of transmission during hospitalization Outcome: Progressing Problem: Risk for / Impaired Skin Integrity Goal: Skin integrity is maintained or improved Outcome: Progressing Problem: Risk for altered SNS response Goal: Reduce risk and mointor for uninhibited response of sympathetic nervous system Outcome: Progressing Problem: Risk for seizure activity Goal: Absence of seizures Outcome: Progressing Goal: Remains free of injury related to seizures activity Outcome: Progressing Problem: Risk for Aspiration Goal: Patient is free of signs of aspiration and the risk of aspiration is decreased Outcome: Progressing Problem: Fall Safety: [place] Precautions Goal: Free from fall injury Outcome: Progressing Problem: Fall Huddle Goal: Free from Fall Injury Outcome: Progressing Problem: Fall Prevention: Neglect/Hemiparesis Bundle Goal: Patient will be free from Fall Injury Outcome: Progressing * [employer] OFFICER Treatment Note - Peyton ChopraST Ela - 11/22/2022 9:00 AM CDT Speech Language Pathologist Treatment Patient Name: Consuelo Darby Patient Birthdate: 1980 Patient Subjective Report - I need to go to bed. Pain Interventions Education Provided: Patient (11/22/22943) Non-Pharmacologic Pain Interventions: Distractions, Cold Applied (11/22/22943) Cognitive Communication: Immediate memory, Orientation, Basic attention, Task persistence and Behavior management Dysphagia Treatment: Oral care, Therapeutic trials, Other (comment) and Swallow strategy training (Oral movement) Recommended diet: NPO for Liquids - No Liquids by Mouth, NPO for Solids, No Medication PO, Non-oralmeans of nutrition and hydration (Comment) and Other (Comment) (PEG; may have ice chips 1 at a timewith staff only.) Patient/Caregiver Training: Completed with patient, Therapy goals and treatment plan, Cognitive strategies, Communication strategies, Dysarthria, Swallow strategies and Oral hygiene Is patient a candidate for SM Water Protocol? No Why is the patient not a candidate for water protocol? Other (comment) (Reduced oral motor functionand control) ST Narrative:: 1. Patient was seen for therapy in her room, seated in tilt in space wheelchair; alert but anxious during most of the session. Patient reported discomfort in her bladder, her hip, and her head with helmet on. Patient became increasingly upset as the session progressed, begging to be able to go back to bed. SE[employer] OFFICER explained that she had more therapy sessions and was unable to get in bed now. Patient was persistent in requesting to lie down in bed. Patient removed her helmet several times due to discomfort. 2. Patient was provided with oral care using the [employer] oral care toothbrush and suction kit. Patientstated that it made her mouth feel much housecleaner and that she was appreciative. 3. Patient was provided with a model for performance of oral movements to improve labial and lingual function for control and manipulation of food and liquid. Patient exhibited minimal volitional oral movement for labial protrusion or retraction. She was unable to protrude her tongue but was able to slightly lateralize her tongue to the right and to the left. 3. Patient was presented with ice chip trials x6. Loss of the ice chip noted from the left side of the oral cavity x2. Patient was able to swallow with no clinical signs of aspiration. She was given a small amount of water on a spoon x2 with cough resulting on 1 of the 2 swallows. 4. OT came in for next therapy session. ST Session Outcomes: Patient/family education progressing, Progressing toward STGs, Moderate cues during session and Tolerated treatment fairly ST Summary Plan of Care: Continue with current plan of care Pain Evaluation and Follow-up Response to Therapy Interventions: Other (comment) (Reported increased pain in head when asked about pain at the end of the session.) (11/22/22943) Pain Reassessment: 8 (11/22/22943) Nursing notified of patient's pain assessment: Primary Nurse (11/22/22943) Therapy Minutes Individual Concurrent Co-Treat Time In : 899 Time Out: 944 Breaks/Pauses (Min): 0 mins Total Time with Patient (Min): [address] 11/22/2022 * Plan of Care - Bradley Spain - 11/22/2022 1:02 AM CDT Problem: Infection Goal: Absence of infection and prevention of transmission during hospitalization Outcome: Progressing Flowsheets (Taken 11/21/2022 1513 by Crissy Georges, RN) Absence of infection and prevention of transmission during hospitalization: Assess and monitor for signs and symptoms of infection and vital signs * PT Treatment Note - Sumaya Gooden PT - 11/21/2022 1:00 PM CDT PT Treatment Patient Name: Consuelo Darby Patient Birthdate: 1980 Patient Subjective Report - Reports headache on R side of head Pain Assessment Pain Context: Therapy Assessment Prior to Treatment (11/21/221299) Pain Assessment: NRS 0-10 (11/21/221299) Pain Score: 10 - Severe Pain (11/21/221299) Pain Severity - NRS (Calculated): Severe (11/21/221299) Pain Type: Acute pain, Surgical pain (11/21/221299) Pain Location: Head (11/21/221299) Pain Orientation: Right, Anterior (11/21/221299) Pain Descriptors: Headache (11/21/221299) Pain Onset: Ongoing (11/21/221299) Pain Frequency: Constant/continuous (11/21/221299) Pre-therapy pain intervention required: Nurse notified (11/21/221299) Pain Interventions Education Provided: Patient (11/21/221299) Non-Pharmacologic Pain Interventions: Distractions, Exercise/Activity, Position/Reposition, Rest (11/21/221299) Emotional/Spiritual Pain Interventions: Empathetic Discussion (11/21/221299) TRANSFERS: Sit to/from supine to wedge with max A x 2 for trunk lift support and L LE and UE management Tilt in space w/c to bed transfer dependent of 2 with Little lift; max assist of 1 for anterior and lateral weight shift in w/c to place Little pad and assist of another to place pad behind client; needs assist for trunk control and balance as well as L UE and L LE management Mat to w/c to level surface with use of sliding board and using sheet under buttocks with max A x 2for lift assist and positioning, trunk control SITTING BALANCE: Client worked on sitting on edge of mat x ~10-15 minutes with B LE support and R UE support; L UE supported on pillow and used mirror for visual feedback; client needs max A/mod A to maintain midline; has LOB posteriorly or will lean heavily onto R arm. Worked on lifting head to midline with cues as well as tracking to midline and to to L side. Client fatigues and needs rest break reclining back on therapist for support Client requires max A of 2 for positioning in w/c and client given arm tray for L UE support; safety alarm belt fastened and client's call light and table placed within reach. Increased tone noted in L LE Client tolerated treatment fairly well today; pain limiting at times. Cont with focus on sitting balance, ROM and strengthening, NMRE, transfers and bed mobility. Pain Evaluation and Follow-up Pain Reassessment: 8 (11/21/22 9100) Nursing notified of patient's pain assessment: Primary Nurse (11/21/22 6350) Therapy Minutes Individual Concurrent Co-Treat Individual (PT) Time In : 1300 Time Out: 1359 Total Time with Patient (Min): 59 min SUMAYA GOODEN, PT 11/21/2022 * Team Conference - JESSY Zuniga - 11/21/2022 11:19 AM CDT Team Conference Note Date: 11/21/2022 Time: 9:43 AM CDT Patient Name: Consuelo Darby Date of : 1980 Sex: Female Room/Bed: 303/303-1 Admit Date/Time: 11/17/2022 4:00 PM Patient Active Problem List Diagnosis Date Noted Cerebrovascular accident 11/17/2022 Hypertension 10/19/2022 Team Members Present: Attendees: Yamileth Frias MD, Idalmis Kohler, PT, Roberto Lee, ERIN, Sandra Land, PharmD, Crissy Georges, RN, Peyton Wolfe Stable Helper in Attendance: JESSY Zuniga Patient/Family Present: Patient Present: No Patient's Family/Caregiver Present: No Anticipated Discharge 12/01/2022 Discharge Plan: Discharge Destination Details : Own Home Back-up Discharge Destination: Own Home Potential Barriers to Return to Prior Living (Use comments to be specific): Capacity for self care;Mobility challenge;Architectural/environmental barrier(s);Home modification challenge;DME issue;Potential need for skills/non- skilled services;Potential need for 24 hour care Clinical Barriers : Clinical needs exceed caregiver capacity;Instability;Medication Barriers: Dense hemiparesis, IV antibx, new to warfarin, tube feed d/t dysphasia, incontinence of bowel, dependent for all mobility, J[facility]NE home, Dependent for self care, disarthric speech, oral apraxia DME Recommendations: TBD Services Recommended at Discharge: Home Care Outside Plant Field Engineer Training: To be scheduled F/U Appointments for Post Discharge: PCP Suicide Risk Assessment: No Concerns identified at this time Pain Management: Pain reported as adequately managed at this time. Medications: Current Facility-Administered Medications: acetaminophen (TYLENOL) tablet 500 mg, 500 mg, Per Tube, Q6H PRN, Nghia Pryor MD, 500 mg at 11/20/22 0610 bisacodyl (DULCOLAX) suppository 10 mg, 10 mg, Rectal, Daily PRN, Nghia Pryor MD cholecalciferol (VITAMIN D3) tablet 2,000 Units, 2,000 Units, Per Tube, Once a day, Nghia Pryor MD, 2,000 Units at 11/21/22 0825 doxycycline (VIBRAMYCIN/MONODOX) capsule 100 mg, 100 mg, Enteral, 2 times per day, Manuel EnglishD, 100 mg at 11/21/22 0825 enoxaparin (LOVENOX) syringe 100 mg, 100 mg, Subcutaneous, Q12H SENDY, Nghia Pryor MD, 100 mg at 11/21/22 0825 guaiFENesin (ROBITUSSIN) 100 MG/5ML liquid 10 mL, 10 mL, Enteral, BID PRN, Nghia Pryor MD loratadine (CLARITIN) tablet 10 mg, 10 mg, Enteral, Once a day, Nghia Pryor MD, 10 mg at 11/21/22 0824 meropenem (MERREM) 2 g in sodium chloride 0.9 % 140 mL IVPB, 2 g, Intravenous, Q8H, Nghia Pryor MD, 2 g at 11/21/22 0411 metoprolol tartrate (LOPRESSOR) tablet 25 mg, 25 mg, Enteral, 2 times per day, Nghia Pryor MD, 25 mg at 11/21/22 0825 ondansetron ODT (ZOFRAN-ODT) disintegrating tablet 4 mg, 4 mg, Per Tube, Q6H PRN, Marlee Bradley MD, 4 mg at 11/20/22 1159 oxyCODONE (ROXICODONE) immediate release tablet 5 mg, 5 mg, Enteral, Q4H PRN, Marlee Bradley MD, 5mg at 11/21/22 0115 pantoprazole-sodium bicarbonate 2mg/ml oral liquid 40 mg, 40 mg, Per Tube, Daily bef breakfast, Marlee Bradley MD, 40 mg at 11/21/22 0533 senna-docusate (SENOKOT-S) 8.6-50 MG tablet 2 tablet, 2 tablet, Enteral, Daily PRN, Nghia Pryor MD simethicone (MYLICON) chewable tablet 80 mg, 80 mg, Per Tube, BID PRN, Marlee Bradley MD, 80 mg at11/20/222013 tamsulosin (FLOMAX) 24 hr capsule 0.4 mg, 0.4 mg, Enteral, After Breakfast, Nghia Pryor MD, 0.4 mg at 11/21/22 08 triamcinolone (KENALOG) 0.1 % ointment, , Apply externally, BID PRN, Nghia Pryor MD, Given at 11/20/222014 verapamil (CALAN) tablet 40 mg, 40 mg, Enteral, Q8H SENDY, Nghia Pryor MD, 40 mg at 11/21/22 0524 Warfarin Per Policy, , Does not apply, Daily, Nghia Pryor MD Pharmacy: Latest Pharmacy IDT Documentation None Anti-infective Durations: Meropenem and po Doxy initiated BOX OFFICE AGENT for endocarditis; stop date verified 11/22 Anti-infective Transition of Care Notes: anticipate completion of therapy on 11/22 IV Medication Transitions: na - anticipate completion of therapy on 11/22 Inpatient Morphine Milligram Equivalents Per Day 11/17 - 11/22 Values displayed are in units of MME/Day Order Start / End Date 11/17 11/18 11/19 Yesterday Today Tomorrow Daily Totals Unknown of Unknown Unknown of Unknown Unknown of Unknown Unknown of Unknown Unknown ofUnknown 0 of Unknown oxyCODONE (ROXICODONE) immediate release tablet Missing start date - 11/17 0 of Unknown -- -- -- -- -- oxyCODONE (ROXICODONE) immediate release tablet 5 mg 11/17 - 11/18 Unknown of Unknown 0 of Unknown -- -- -- -- oxyCODONE (ROXICODONE) immediate release tablet 5 mg 11/18 - No end date -- Unknown of Unknown Unknown of Unknown Unknown of Unknown Unknown of Unknown 0 of Unknown Calculation Errors Order Type Date Details oxyCODONE (ROXICODONE) immediate release tablet Ordered Dose -- Maximum number of scheduled times exceeded oxyCODONE (ROXICODONE) immediate release tablet 5 mg Ordered Dose -- No morphine equivalence factorfound for OXYCODONE HCL 5 MG PO TABS [01991] and route Enteral [125] Administered Dose 11/17/22 No morphine equivalence factor found for OXYCODONE HCL 5 MG PO TABS [85515] and route Enteral [125] oxyCODONE (ROXICODONE) immediate release tablet 5 mg Ordered Dose -- No morphine equivalence factorfound for OXYCODONE HCL 5 MG PO TABS [[id number]] and route Enteral [125] Administered Dose 11/18/22 No morphine equivalence factor found for OXYCODONE HCL 5 MG PO TABS [01712] and route Enteral [125] 11/19/22 No morphine equivalence factor found for OXYCODONE HCL 5 MG PO TABS [[id number]] and route Enteral [125] 11/20/22 No morphine equivalence factor found for OXYCODONE HCL 5 MG PO TABS [[id number]] and route Enteral [125] 11/21/22 No morphine equivalence factor found for OXYCODONE HCL 5 MG PO TABS [[id number]] and route Enteral [125] Nursing Team Conference: PT Weekly Progress Note PT Weekly Progress Note by Myra Obregon PT at 11/20/2022 3:46 PM Author: Myra Obregon PT Service: Therapy Author Type: Physical Therapist Filed: 11/20/2022 3:54 PM Date of Service: 11/20/2022 Legal Coordinator: Myra Obregon PT (Physical Therapist) PT Weekly Progress Note Patient Name: Consuelo Darby Patient Birthdate: 1980 PT CURRENT FUNCTIONAL STATUS: PT Current Functional Status: PT Current Functional Status: BED MOBILITY: Sit to/from supine: unsafe to attempt due to pain and decreased tolerance to upright position. Rolling with Mod-MaxA of two people TRANSFERS Sit to/from stand: unsafe to attempt at this time due to pain and mobility limitations Stand pivot: unsafe to attempt at this time due to pain and mobility limitations Transfers: dependent via little lift bed<>wc Car transfer: unsafe to attempt at this time due to pain and mobility limitations GAIT Unsafe to attempt ambulation 10, 50',150' and 10' on compliant surface due to pain and mobility limitations Retrieves object from floor in standing: Unsafe to retrieve object from due to pain and mobility limitations STAIRS Acscends/descends 1,4, 12 steps unsafe to attempt at this time due to pain and mobility limitations WHEELCHAIR MOBILITY Unsafe to attempt wheelchair mobility due to pain and requiring [id number] chair to accommodate patient's decrease tolerance to upright position with nausea. OUTCOME MEASURES: AGITATED BEHAVIOR SCALE 17 POSTURAL ASSESSMENT OF STROKE 2 (Unable to attempt tasks other than rolling due to pain.) 10 METER WALK TEST unsafe to attempt Pt able to transfer to wheelchair dependently via little lift, but limited overall by L hemiparesis and tone vs spasticity, decreased tolerance to upright position, and decreased tolerance to helmet wearing. Patient to benefit from ongoing intensive therapy to maximize mobility and tolerance to activity. Factors in Goal Achievement: Facilitating Factors: Patient understanding and knowledge and Support of family or caregiver Barriers: Pain, Motor control deficits, Medical Complications, Balance deficits and Spasticity Date Last Assessed: 11/20/2022 CARE Score Fields: 6: Independent. [place] provides no assistance with tasks. A device may or may not have been used. 5: Set-up or clean-up assistance. [place] sets up or cleans up, but does not assist with tasks. [place] may have assisted prior to or following the activity. 4: Supervision or touching assistance. [place] provides verbal cues or touching/steadying or contactguard assistance. Assistance may be provided throughout the activity or intermittently. 3: Partial/moderate assistance. [place] does less than half the effort. [place] lifts, holds, or supports trunk or limbs, but provides less than half the effort. 2: Substantial/maximal assistance. [place] does more than half the effort. [place] lifts or holds trunk or limbs, and provides more than half the effort. 1: Dependent. [place] does all of the effort, or the assistance of two or more helpers is required for the patient to complete the activity. -: Inconsistent or incomplete documentation Activity not attempted values: 7: Patient refused 9: Not applicable - Not attempted and the patient did not perform this activity prior to the current illness, exacerbation, or injury. 10: Not attempted due to environmental limitations (e.g., lack of equipment, weather constraints) 88: Not attempted due to medical condition or safety concerns [facility] Helper Goals: Goal Status on Admission Current Status Car Transfer LTG: Partial/moderate assistance (Patient will complete car transfer with moderate assist to be able to transport in a personal vehicle.) Car Transfer - CARE Score: 88 (11/18/221005 : Roxanne Goldberg, PT) Car Transfer - CARE Score: 88 (11/18/221005) Walk 10 Feet - CARE Score: 88 (11/18/221005 : Roxanne Goldberg PT) Walk 10 Feet - CARE Score: 88 (11/18/221005) Walk 50 Feet with Two Turns - CARE Score: 88 (11/18/221005 : Roxanne Goldberg PT) Walk 50 Feet with Two Turns - CARE Score: 88 (11/18/221005) Walk 150 Feet - CARE Score: 88 (11/18/221005 : Roxanne Goldberg PT) Walk 150 Feet - CARE Score: 88(11/18/221005) Walking 10 Feet on Uneven Surfaces - CARE Score: 88 (11/18/221005 : Roxanne Goldberg PT) Walking 10 Feet on Uneven Surfaces - CARE Score: 88 (11/18/221005) 1 Step (Curb) - CARE Score: 88 (11/18/221005 : Roxanne Goldberg, PT) 1 Step (Curb) - CARE Score: 88(11/18/221005) 4 Steps - CARE Score: 88 (11/18/221005 : Roxanne Goldberg PT) 4 Steps - CARE Score: 88 (11/18/221005) 12 Steps - CARE Score: 88 (11/18/221005 : Roxanne Goldberg PT) 12 Steps - CARE Score: 88 () Picking Up Object - CARE Score: 88 (11/18/221005 : Roxanne Goldberg PT) Picking Up Object - CARE Score: 88 (11/18/221005) Wheel 50 Feet with Two Turns LTG: Supervision or touching assistance (Patient will be able to wheel50 ft including navigating the environment with touching assistance.) Wheel 50 Feet with Two Turns - CARE Score: 88 (11/18/22 1006 : Roxanne Goldberg PT) Wheel 50 Feet with Two Turns - CARE Score: 88(11/18/22 1006) Wheel 150 Feet - CARE Score: 88 (11/18/22 1006 : Roxanne Goldberg PT) Wheel 150 Feet - CARE Score: 88 (11/18/22 1006) Additional Goals & Status: N/A PT Other [facility]fp Goals Flowsheet Row Most Recent Value Other PT Ranch Helper Goals Other Goals - Ranch Hel[place] Ranch Helper 1, [place] Helper 2 Filed on: 11/18/2022 105 Other [facility] Hel[facility] Goal 1 Patient will complete transfers with moderate assist of one person. Filed on: 11/18/2022 105 Other [place] [facility] Goal 1 Status Established Filed on: 11/18/2022 105 Other Mcfp Goal 2 Patient will complete bed mobility including rolling and supine<> sit transitions with minimal assistance. Filed on: 11/18/2022 105 Other Mcfp Goal 2 Status Established Filed on: 11/18/2022 1057 Expected Achievement Date 12/15/22 Filed on: 11/18/2022 1057 PT Short Term Goal 1: Focus: Other Details: Patient will be able to tolerate being out of bed and seated in her wheelchair for increased engagement within therapy session. Expected Achievement Date: 11/25/2022 Goal Status: Established PT Short Term Goal 2: Focus: Other (Bed mobility) Level of Assistance to Meet Short Term Goal: Physical assistance 75% or more Details: Patient will complete rolling in bed with maximal assist of one. Expected Achievement Date: 11/25/2022 Status: Established PT Short Term Goal 3: Level of Assistance to Meet Short Term Goal: Total assistance Details: Patient will be able to complete sit <> supine transitions with two person moderate assist. 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 [employer] she was on a normal diet ORAL HYGIENE: Minimum assistance; for use of suction. Client able to flip cap open with use R hand.Client requires hand over hand assistance to apply toothpaste to toothbrush. Client able to brush teeth with R hand and able to spit a minimal amount with verbal cues for initiation. Throughout activity, client requires verbal and tactile cues for sequencing and motor planning. TOILETING: dependent, assist needed for all aspects BATHING: dependent, assist needed for all aspects; task modified to bed level for safety, two person assist needed for rolling to complete LB bathing UB DRESSING: dependent, assist for all aspects when seated in w/c LB DRESSING: dependent, assist for all aspects, done bed level for safety; two person assist neededfor rolling completely during task PUTTING ON/TAKING OFF FOOTWEAR: dependent ROLL LEFT AND RIGHT: dependent SIT TO LYING: NT b/c of safety concerns with balance LYING TO SITTING: NT b/c of safety concerns with balance SIT TO STAND: NT b/c of safety concerns BED TO CHAIR TRANSFER: dependent with use of little lift--2 person assist needed TOILET TRANSFER: NT b/c of safety concerns with balance. Ms. Hernandez demonstrates minimal progress in the areas of ADLs and functional transfers due to participating in one therapy session since evaluation (11/18/22). At time of initial evaluation, she required Total assistance for most activities and still completes with Total assistance. Barriers include s ignificant pain (headaches), L hemiplegia, and significant deficits in balance, strength, activity tolerance, executive function, communication, oculomotor skills, and coordination. She will benefit from continued skilled OT to address these deficits and maximize safety and independence in ADLs andfunctional transfers. Facilitating Factors in Goal Achievement: Patient compliance, Support of family or caregiver and Support of significant other Barriers to Goal Achievement: Visual deficits, Decreased safety awareness, Decreased patient understanding, Cognitive deficits, Medical complications, Strength limitations, Diminished endurance, Balance deficits, Tone deficits and ROM limitations Date Last Assessed: 11/20/2022 Patient needs assistance with the following activities: Activities of daily living, Going out in the community, Memory, Positioning, Rolling, Use of bathroom equipment, Use of patient user experience manager and Sitting balance CARE Score Fields: 6: Independent. [place] provides no assistance with tasks. A device may or may not have been used. 5: Set-up or clean-up assistance. [place] sets up or cleans up, but does not assist with tasks. [place] may have assisted prior to or following the activity. 4: Supervision or touching assistance. [place] provides verbal cues or touching/steadying or contactguard assistance. Assistance may be provided throughout the activity or intermittently. 3: Partial/moderate assistance. [place] does less than half the effort. [place] lifts, holds, or supports trunk or limbs, but provides less than half the effort. 2: Substantial/maximal assistance. [place] does more than half the effort. [place] lifts or holds trunk or limbs, and provides more than half the effort. 1: Dependent. [place] does all of the effort, or the assistance of two or more helpers is required for the patient to complete the activity. -: Inconsistent or incomplete documentation Activity not attempted values: 7: Patient refused 9: Not applicable - Not attempted and the patient did not perform this activity prior to the current illness, exacerbation, or injury. 10: Not attempted due to environmental limitations (e.g., lack of equipment, weather constraints) 88: Not attempted due to medical condition or safety concerns [facility] Goals: Goal Status on Admission Current Status Eating LTG: Supervision or touching assistance Eating - CARE Score: 88 (11/18/22 1252 : Roland Eubanks OT) Eating - CARE Score: 88 (11/20/221650) Oral Hygiene LTG: Supervision or touching assistance Oral Hygiene - CARE Score: 2 (11/18/22 1252 : Roland Avendano OT) Oral Hygiene - CARE Score: 3 (11/20/221650) Toileting Hygiene LTG: Partial/moderate assistance Toileting Hygiene - CARE Score: 1 (11/18/22 1252: Roland Avendano OT) Toileting Hygiene - CARE Score: 1 (11/20/221650) Shower/Bathe Self LTG: Partial/moderate assistance Shower/Bathe Self - CARE Score: 1 (11/18/22 1252: Roland Avendano OT) Shower/Bathe Self - CARE Score: 1 (11/20/221650) Upper Body Dressing LTG: Partial/moderate assistance Upper Body Dressing - CARE Score: 1 (11/18/22 1252 : Roland Avendano OT) Upper Body Dressing - CARE Score: 1 (11/20/221650) Lower Body Dressing LTG: Partial/moderate assistance Lower Body Dressing - CARE Score: 1 (11/18/22 1252 : Roland Avendano OT) Lower Body Dressing - CARE Score: 1 (11/20/221650) Putting On/Taking Off Footwear LTG: Partial/moderate assistance Putting On/Taking Off Footwear - CARE Score: 1 (11/18/22 1252 : Roland Avendano OT) Putting On/Taking Off Footwear - CARE Score: 1 (11/20/221650) Roll Left and Right - CARE Score: 1 (11/18/22 1252 : Roland Avendano OT) Roll Left and Right - CARE Score: 1 (11/20/221650) Sit to Lying - CARE Score: 88 (11/18/22 1252 : oRland Avendano OT) Sit to Lying - CARE Score:88 (11/20/221650) Lying to Sitting on Side of Bed - CARE Score: 88 (11/18/22 1252 : Roland Avendano OT) Lying to Sitting on Side of Bed - CARE Score: 88 (11/20/221650) Sit to Stand - CARE Score: 88 (11/18/22 1252 : Roland Avendano OT) Sit to Stand - CARE Score:88 (11/20/221650) Chair/Xsx-dz-Apcnb Transfer LTG: Partial/moderate assistance Chair/Kex-ye-Hhhur Transfer - CARE Score: 1 (11/18/22 1252 : Roland Avendano OT) Chair/Gyr-jj-Msxkg Transfer - CARE Score: 1 (11/20/221650) Toilet Transfer LTG: Partial/moderate assistance Toilet Transfer - CARE Score: 88 (11/18/22 1252 : Roland Avendano, OT) Toilet Transfer - CARE Score: 88 (11/20/22 1651) OT Short Term Goal 1: Focus: Toileting Hygiene Level of Assistance to Meet Short Term Goal: Physical assistance 50%-74% Expected Achievement Date: 11/27/2022 Goal Status: Not Achieved OT Short Term Goal 2: Focus: Shower/Bathe Level of Assistance to Meet Short Term Goal: Physical assistance 50%-74% Expected Achievement Date: 11/27/2022 Goal Status: Not Achieved OT Short Term Goal 3: Focus: Upper Body Dressing Level of Assistance to Meet Short Term Goal: Physical assistance 50%-74% Expected Achievement Date: 11/27/2022 Goal Status: Not Achieved OT Short Term Goal 4: Focus: Lower Body Dressing Level of Assistance to Meet Short Term Goal: Physical assistance 50%-74% Expected Achievement Date: 11/27/2022 Goal Status: Not Achieved OT Short Term Goal 5: Focus: Chair/Bed Transfer Level of Assistance to Meet Short Term Goal: Physical assistance 50%-74% Expected Achievement Date: 11/27/2022 Goal Status: Not Achieved OT Short Term Goal 6: Focus: Toilet Transfer Level of Assistance to Meet Short Term Goal: Physical assistance 50%-74% Expected Achievement Date: 11/27/2022 Goal Status: Not Achieved Duration Expiration Date: 12/16/2022 VERENA SUÁREZ 11/20/2022 [employer] Weekly Progress Note [employer] Weekly Progress Note by ST Mehdi at 11/20/2022 4:24 PM Author: ST Mehdi Service: Therapy Author Type: Speech and Language Pathologist Filed: 11/20/2022 4:35 PM Date of Service: 11/20/2022 Legal Coordinator: ST Mehdi (Speech and Language Pathologist) Speech Language Pathologist Weekly Progress Note Patient Name: Consuelo Darby Patient Birthdate: 1980 [employer] Current Functional Status: Ms. Darby is a 42 year-old female referred to speech therapy for evaluation and treatment followingrecent hospitalization with a diagnosis of stroke. Past medical history is significant for abdominal pain right upper quadrant, hemiplegic migraine, GERD, HTN. Prior to referral for a rehabilitation a dmission, patient did not require assistance for household ambulation, community level ambulation or self-care activities. 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 Ms. Darby's current functional status is as follows: DIET: NPO for solids, NPO for liquids, medication via PEG. Oral mechanism exam significant for noted severe dried lingual secretions when patient yawned during completion of OHAT. Patient with impaired oral-motor command following despite model, verbal cues for adequate oral care via toothette moistened in ice water. Patient managing secretions with occasional reflexive swallow. Patient with non-preference for upright positioning for PO trials, consequently PO trials deferred. Suction not set up at bedside, suction toothbrush not set up at bedside; nursing informed and aware. Nursing informedand aware of patient need for frequent and aggressive oral care due to compromised oral health; oral care recommendations written on pink swallow guideline sheet in room; oral care orders entered in [facility]. Recommend continue NPO for solids, NPO for liquids, medication via PEG. COMPREHENSION: MINIMAL ASSISTANCE. Patient able to answer simple and complex Y/N questions, able tofollow 1-3 step and complex auditory commands; impaired ability to perform oral-motor commands due to oral apraxia; limited assessment due to fluctuating alertness; patient able to tell clock time diane distance wearing glasses; patient able to dial landline phone wearing glasses; patient unable to read information on white board in room, suspect left-sided inattention; LAST-b Language Screening Test Receptive Index: 5/7; suspect left upper quandrant inattention due to inability to name two pictured objects in that region of the page. EXPRESSION: MODERATE ASSISTANCE. Moderate-severe dysarthria with impaired breath support for speech; fast rate of speech, impaired oral-motor ROM impacting articulation; further assessment warranted;LAST-b Language Screening Test Expressive Index: 8/8; suspect lower left quadrant left-sided inattention as patient named picture of knife as as paper clip . SOCIAL INTERACTION: MODIFIED INDEPENDENT. Patient is cooperative; flat affect, montone; intact sense of humor, when therapist complemented her on 's dedication to her situation, she replied: You have no idea. PROBLEM SOLVING: MODERATE ASSISTANCE. Patient able to locate call light and identify red nurse button independently; stated two solutions to a basic functional problem solving situation; stated one solution to a novel basic functional problem solving situation; stated one solution to a hypotheticalbasic problem solving situation; able to tell analog clock time with glasses; impaired location of information on white board in room, suspect left-sided inattention; able to dial landline room phonewith supervisory task initiation cues. MEMORY: MINIMAL ASSISTANCE. Patient recalled 3/3 items independently following 5 minute delay, recalled 3/3 items independently on BIMs w/cues; recalled one task completed during OT eval, recalled one task completed during PT eval; A&Ox4; limited assessment due to dysarthria and impaired breathsupport for speech to provide therapist with full and accurate accounting of events for assessment of daily recall of events PROGRESS 11/20/22: Evaluation was completed on 11/18/22. All goals remain appropriate at this time dueto limited number of sessions thus far. RECOMMENDATIONS: Ms. Darby demonstrates good potential for improvement and would benefit from intensive speech therapy services 45-90 minutes daily in an individualized and/or group setting, 5 days/week, focusing on increased safety and independence. Plan of care to include: compensatory strategy training, cognitive and communicative retraining, and patient/family training and education. Consuelo Darby: [ ]is able to state 2 risk factors without VCs prior to discharge [ ]requires cues to recall 2 stroke risk factors [ X] Is unable to state stroke risk factors due to communication or cognitive deficits Facilitating Factors in Goal Achievement: Patient compliance and Patient understanding and knowledge Barriers to Goal Achievement: Communication deficits and Other (comment) (cognition; dysphagia) Date Last Assessed: 11/20/2022 Mcfp Goals: Goal Status on Evaluation Current Progress Towards Goal Level of Assistance to Meet Auditory Comprehension: Standby (less than 10%) Auditory Comprehension Details: Demonstrate auditory comprehension of complex questions, directions, and conversation to meet needs, complete tasks and interact socially with others within functionalliving environments Auditory Comprehension Expected Achievement Date: 12/02/22 Minimal assistance Level of Assistance to Meet Memory: Standby (less than 10%) Memory Details: Demonstrate functional memory skills for recall of information relating to people, routines, overall health, and safety within functional living environments Memory Expected Achievement Date: 12/02/22 Minimal assistance Level of Assistance to Meet Motor Speech: Min assist (10-24%) Motor Speech Details: Demonstrate functional speech intelligibility in multiple environments through self monitoring and implementation of newly learned strategies and exercises Motor Speech Expected Achievement Date: 12/02/22 Moderate assistance Level of Assistance to Meet Swallowing: Standby (less than 10%) Swallowing Details: Safely consume a regular diet with all liquids with no overt signs or symptoms of aspiration or post swallow distress Swallowing Expected Achievement Date: 12/02/22 NPO solids and liquids Additional Goal Status: N/A [employer] Short Term Goals: Auditory Comprehension: Level of Assistance to Meet Auditory Comprehension: Standby (less than 10%) Details: Answer complex yes/no questions with 90% acc Expected Achievement Date: 11/27/2022 Goal Status: Not Achieved Memory: Level of Assistance to Meet Memory: Min assist (10-24%) Details: Recall 3-4 events from PT and OT sessions Expected Achievement Date: 11/27/2022 Goal Status: Not Achieved Additional Cognition: Level of Assistance to Meet Additional Cognition: Min assist (10-24%) Details: Complete visual attention tasks with 80% acc Expected Achievement Date: 11/27/2022 Goal Status: Not Achieved Motor Speech: Level of Assistance to Meet Motor Speech: Mod assist (25-49%) Details: Increase maximum phonation time to 10 seconds Expected Achievement Date: 11/27/2022 Goal Status: Not Achieved Swallowing: Level of Assistance to Meet Swallowing: Standby (less than 10%) Details: Improve OHAT score to zero, initiate SMWP as appropriate Expected Achievement Date: 11/27/2022 Goal Status: Not Achieved Other STG 1: Focus: Motor Speech Level of Assistance to Meet Other STG 1: Independent Details: State three speech intelligibility strategies Expected Achievement Date: 11/27/2022 Goal Status: Not Achieved Other STG 2: Focus: Motor Speech Level of Assistance to Meet Other STG 2: Min assist (10-24%) Details: Demonstrate use of strategies at the phrase level Expected Achievement Date: 11/27/2022 Goal Status: Not Achieved Other STG 3: Focus: Swallowing Level of Assistance to Meet Other STG 3: Standby (less than 10%) Details: Tolerate PO trials ice chips, thickened liquids with <10% overt clinical signs/symptomsaspiration or post-swallow distress Expected Achievement Date: 11/27/2022 Goal Status: Not Achieved Duration Expiration Date: 12/15/[address] 11/20/2022 Respiratory Team Conference: Nutrition Team Conference: Dietary Orders (From admission, onward) Start Ordered 11/17/22 1746 NPO Diet, Tube Feeding No Tray Strict NPO; Jevity 1.5; Tube Feeding Continuous rate (mL/hr): 50; Tube Feeding water flush (mL): 150; Water Flush type: Water; Water flush frequency: Every 4 hours Diet effective now End/Expires: Until Specified Question Answer Comment NPO Status: Strict NPO Tube Feeding Formula: Jevity 1.5 Tube Feeding Continuous rate (mL/hr): 50 Tube Feeding water flush (mL): 150 Water Flush type: Water Water flush frequency: Every [address] order in third green party system. Done 11/17/22 174 Height: 5' 4 (162.6 cm) Admit Weight: 198 lb (89.8 kg) Current Weight: 198 lb (89.8 kg) Body mass index is 33.99 kg/m??. Calorie Count: Plan of Care - Nutrition Care Plans 1 Author: Karolina Parks RD Service: -- Author Type: Registered Dietitian Filed: 11/20/2022 12:02 PM Date of Service: 11/20/2022 12:02 PM Status: Signed Legal Coordinator: Karolina Parks RD (Registered Dietitian) Problem: Inadequate Oral Intake Description: Oral food/beverage intake that is less than established reference standards or recommendations based on physiological needs. Related to: dysphagia As evidenced by: need for TF to meet nutritional needs. Goal: Maintain Nutritional Status Outcome: Progressing Flowsheets (Taken 11/20/2022 1201) Enteral and Parenteral Nutrition: Enteral nutrition Wound: Cosigned by Yamileth Frias MD at 11/22/2022 1:42 PM CDT Associated attestation - Yamileth Frias MD - 11/22/2022 2:42 PM EDT A team conference was held on 11/21/2022 and included members of the multidisciplinary team identified in the attendance section of this note. Issues related to Ms. Parkers status include; Patient Active Problem List Diagnosis Cerebrovascular accident Hypertension Ms. Darby's progress toward rehabilitation goals, impediments to attaining these goals, and associated revisions to the treatment plans and goals were discussed by the team. Details of this multidisciplinary process are included below. Issues of particular significance at this time regarding Ms. Darby's progress towards rehabilitation goals and treatment plan include: Discussed about functional gains , discharge planning ,DME , follow up therapies and current medical condition during team conference . As discussed during this team conference, I concur with the decisions set forth by the members of the multidisciplinary team. Ms. Darby continues to require frequent physician visits and 24 hours perday acute rehabilitation nursing care in order to meet medical needs and progress toward the achievement of the rehabilitation goals. YAMILETH FRIAS MD 11/22/2022 1:42 PM CDT * OT Treatment Note - Bridgett Evangelista OT - 11/21/2022 10:31 AM CDT Occupational Therapy Treatment Patient Name: Consuelo Darby Patient Birthdate: 1980 Patient Subjective Report - Can I go back to bed, I can't take the pain Pain Assessment Pain Context: Therapy Assessment During Treatment (11/21/22 1034) Pain Assessment: None/denies pain (11/21/22 1034) Pain Score: 0 - No pain (11/21/22 1034) Pain Severity - NRS (Calculated): No pain (11/21/22 103) ADL Training: ADL Training Narrative: EATING: NPO, continuous tube feeding through g-tube ORAL HYGIENE: with TOILETING: with dependence, assist with all aspects of toileting. Performed at bed level due to safety concerns with balance. SHOWER/BATHING: with dependence, able to wash/dry face with increase time, however, requires complete assistance with washing/drying UB when sitting in w/c and complete assistance with LB at bed level with sponge bathing. UPPER BODY DRESSING: with dependence while sitting upright in w/c. Ms. Darby required assist to thread/unthread UE through bra straps and adjust bra and she required assist of one person to lean upright and forward while another person unfastened/fastened bra. Ms. Darby was able to push/pull right UE through arm sleeve of shirt, however, therapist needed to perform remaining UB dressing tasks including sitting Ms. Darby upright and providing support for sitting while pulling shirt over and downtorso. Increased time to perform UB dressing LOWER BODY DRESSING: with dependence, complete assistance needed for all aspects of LB dressing, Ms. Darby fluctuated from requiring 1-2 people for rolling. FOOTWEAR: with dependence with all aspects of footwear Transfer Training: Transfer Narrative: ROLL LEFT/RIGHT: with dependence, fluctuated from requiring 1-2 people assist with rolling SIT TO LYING: not performed this date due to safety concerns LYING TO SITTING: not performed this date due to safety concerns SIT TO STAND: not performed this date due to safety concerns BED TO CHAIR TRANSFER: with dependence using little lift with assist of 2 TOILET TRANSFER: not performed due to safety concerns. OT Therapeutic Activity: Endurance: Frequent rest breaks. Encouragement at times towards end of tx session to not return to bed after just getting out of bed. Cognition: Decreased problem solving, insight, reasoning skills, memory. Treatment, Outcomes and Plan: OT Narrative:: Ms. Darby tolerated tx with frequent rest breaks and encouragement at times. Ms. Darby would benefit from continued OT services to work on maximizing functional independence. OT Treatment Outcomes:: Safety device reapplied, Goals met for this session, Cues needed for safety, Patient tolerated treatment fairly and Improved ability to tolerate 90 min. therapy session OT Summary Plan of Care: Continue with current plan of care Pain Evaluation and Follow-up Response to Therapy Interventions: Other (comment) (pt complained of head hurting when in upright position and when helmet on head) (11/21/22 1207) Pain Reassessment: Other (Comment) (unable to determine due to pt only repeating that she had pain)(11/21/22 1207) Nursing notified of patient's pain assessment: Other (comment) (primary nurse unavailable at time, notified clinical nursing manager that reported he will notifiy primary nurse.) (11/21/22 1207) Therapy Minutes Individual Concurrent Co-Treat Individual (OT) Time In : 1031 Time Out: 1207 Total Time with Patient (Min): 96 min BRIDGETT EVANGELISTA, OT 11/21/2022 * Non-treatment Therapy Note - Idalmis Kohler, PT - 11/21/2022 8:29 AM CDT Prior to team conference, the Primary Therapist Myra Obregon PT, and I have communicated regarding current patient status, progress towards goals, and modifications to plan of care, as appropriate. IDALMIS KOHLER, PT * [employer] Treatment Note - [facility] - 11/21/2022 8:15 AM CDT Speech Language Pathologist Treatment Patient Name: Consuelo Darby Patient Birthdate: 1980 Patient Subjective Report - Why is this so hard to do? Pain Assessment Pain Context: Therapy Assessment Prior to Treatment (11/21/22814) Pain Assessment: None/denies pain (11/21/22814) Cognitive Communication: Immediate memory, Orientation and Basic attention Dysphagia Treatment: Oral care, Therapeutic trials and Other (comment) (Oral movement) Recommended diet: NPO for Liquids - No Liquids by Mouth, NPO for Solids, No Medication PO, Non-oralmeans of nutrition and hydration (Comment) and Other (Comment) (PEG; may have ice chips 1 at a timewith staff only.) Patient/Caregiver Training: Completed with patient, Therapy goals and treatment plan, Cognitive strategies, Communication strategies, Dysarthria, Swallow strategies and Oral hygiene Is patient a candidate for SM Water Protocol? No Why is the patient not a candidate for water protocol? Other (comment) (Reduced oral motor functionand control) ST Narrative:: 1. Patient was seen for therapy in her room, reclined in bed; alert and cooperative with therapy tasks. Patient reported no pain today and stated that she slept well. 2. Patient was provided with a model for performance of oral movements to improve labial and lingual function for control and manipulation of food and liquid. Patient exhibited minimal volitional oral movement for labial protrusion or retraction. She was unable to protrude her tongue but was able to slightly lateralize her tongue to the right and to the left. A tongue blade was used to help stimulate movement of the tongue. Spontaneous swallow was observed x3. 3. Patient was presented with ice chip trials x3. Patient was able to hold the ice chip in the oralcavity with no spillage. She was encouraged to manipulate the ice chip in the oral cavity and to swallow. Patient was able to do so with mild swallow delay and no clinical signs of aspiration. 4. Patient remained in her room with call light and phone left within reach. Bed alarm activated. ST Session Outcomes: Patient/family education progressing, Progressing toward STGs, Moderate cues during session and Tolerated treatment well ST Summary Plan of Care: Continue with current plan of care Pain Evaluation and Follow-up Pain Reassessment: 0, No pain (11/21/22858) Nursing notified of patient's pain assessment: Not indicated - pain score 2 or less (11/21/22858) Therapy Minutes Individual Concurrent Co-Treat Time In : 814 Time Out: 899 Breaks/Pauses (Min): 0 mins Total Time with Patient (Min): [address] 11/21/2022 * Non-treatment Therapy Note - Roberto Lee OT - 11/21/2022 7:25 AM CDT Prior to team conference, the Primary Therapist Lauren Paul OT and I have communicated regarding current patient status, progress towards goals, and modifications to plan of care, as appropriate. ROBERTO LEE OT * Plan of Care - Awilda Gonsalves RN - 11/21/2022 3:03 AM CDT Problem: Potential for Compromised Skin Integrity Goal: Skin integrity is maintained or improved Outcome: Progressing Flowsheets (Taken 11/19/2022 014 by Archie Loja RN) Skin Integrity is Maintained or Improved: Collaborate with WOCN/Wound Nurse Relieve pressure to bony prominences, avoid shearing Assess skin and skin risk for breakdown Turn Patient Keep skin clean and dry Monitor and teach appropriate hygiene practices * [employer] Weekly Progress Note - [facility] - 11/20/2022 4:24 PM CDT Speech Language Pathologist Weekly Progress Note Patient Name: Consuelo Darby Patient Birthdate: 1980 [employer] Current Functional Status: Ms. Darby is a 42 year-old female referred to speech therapy for evaluation and treatment followingrecent hospitalization with a diagnosis of stroke. Past medical history is significant for abdominal pain right upper quadrant, hemiplegic migraine, GERD, HTN. Prior to referral for a rehabilitation a dmission, patient did not require assistance for household ambulation, community level ambulation or self-care activities. 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 Ms. Darby's current functional status is as follows: DIET: NPO for solids, NPO for liquids, medication via PEG. Oral mechanism exam significant for noted severe dried lingual secretions when patient yawned during completion of OHAT. Patient with impaired oral-motor command following despite model, verbal cues for adequate oral care via toothette moistened in ice water. Patient managing secretions with occasional reflexive swallow. Patient with non-preference for upright positioning for PO trials, consequently PO trials deferred. Suction not set up at bedside, suction toothbrush not set up at bedside; nursing informed and aware. Nursing informedand aware of patient need for frequent and aggressive oral care due to compromised oral health; oral care recommendations written on pink swallow guideline sheet in room; oral care orders entered in [facility]. Recommend continue NPO for solids, NPO for liquids, medication via PEG. COMPREHENSION: MINIMAL ASSISTANCE. Patient able to answer simple and complex Y/N questions, able tofollow 1-3 step and complex auditory commands; impaired ability to perform oral-motor commands due to oral apraxia; limited assessment due to fluctuating alertness; patient able to tell clock time diane distance wearing glasses; patient able to dial landline phone wearing glasses; patient unable to read information on white board in room, suspect left-sided inattention; LAST-b Language Screening Test Receptive Index: 5/7; suspect left upper quandrant inattention due to inability to name two pictured objects in that region of the page. EXPRESSION: MODERATE ASSISTANCE. Moderate-severe dysarthria with impaired breath support for speech; fast rate of speech, impaired oral-motor ROM impacting articulation; further assessment warranted;LAST-b Language Screening Test Expressive Index: 8/8; suspect lower left quadrant left-sided inattention as patient named picture of knife as as paper clip . SOCIAL INTERACTION: MODIFIED INDEPENDENT. Patient is cooperative; flat affect, montone; intact sense of humor, when therapist complemented her on 's dedication to her situation, she replied: You have no idea. PROBLEM SOLVING: MODERATE ASSISTANCE. Patient able to locate call light and identify red nurse button independently; stated two solutions to a basic functional problem solving situation; stated one solution to a novel basic functional problem solving situation; stated one solution to a hypotheticalbasic problem solving situation; able to tell analog clock time with glasses; impaired location of information on white board in room, suspect left-sided inattention; able to dial landline room phonewith supervisory task initiation cues. MEMORY: MINIMAL ASSISTANCE. Patient recalled 3/3 items independently following 5 minute delay, recalled 3/3 items independently on BIMs w/cues; recalled one task completed during OT eval, recalled one task completed during PT eval; A&Ox4; limited assessment due to dysarthria and impaired breathsupport for speech to provide therapist with full and accurate accounting of events for assessment of daily recall of events PROGRESS 11/20/22: Evaluation was completed on 11/18/22. All goals remain appropriate at this time dueto limited number of sessions thus far. RECOMMENDATIONS: Ms. Darby demonstrates good potential for improvement and would benefit from intensive speech therapy services 45-90 minutes daily in an individualized and/or group setting, 5 days/week, focusing on increased safety and independence. Plan of care to include: compensatory strategy training, cognitive and communicative retraining, and patient/family training and education. Consuelo Darby: [ ]is able to state 2 risk factors without VCs prior to discharge [ ]requires cues to recall 2 stroke risk factors [ X] Is unable to state stroke risk factors due to communication or cognitive deficits Facilitating Factors in Goal Achievement: Patient compliance and Patient understanding and knowledge Barriers to Goal Achievement: Communication deficits and Other (comment) (cognition; dysphagia) Date Last Assessed: 11/20/2022 [facility] Goals: Goal Status on Evaluation Current Progress Towards Goal Level of Assistance to Meet Auditory Comprehension: Standby (less than 10%) Auditory Comprehension Details: Demonstrate auditory comprehension of complex questions, directions, and conversation to meet needs, complete tasks and interact socially with others within functionalliving environments Auditory Comprehension Expected Achievement Date: 12/02/22 Minimal assistance Level of Assistance to Meet Memory: Standby (less than 10%) Memory Details: Demonstrate functional memory skills for recall of information relating to people, routines, overall health, and safety within functional living environments Memory Expected Achievement Date: 12/02/22 Minimal assistance Level of Assistance to Meet Motor Speech: Min assist (10-24%) Motor Speech Details: Demonstrate functional speech intelligibility in multiple environments through self monitoring and implementation of newly learned strategies and exercises Motor Speech Expected Achievement Date: 12/02/22 Moderate assistance Level of Assistance to Meet Swallowing: Standby (less than 10%) Swallowing Details: Safely consume a regular diet with all liquids with no overt signs or symptoms of aspiration or post swallow distress Swallowing Expected Achievement Date: 12/02/22 NPO solids and liquids Additional Goal Status: N/A [employer] Short Term Goals: Auditory Comprehension: Level of Assistance to Meet Auditory Comprehension: Standby (less than 10%) Details: Answer complex yes/no questions with 90% acc Expected Achievement Date: 11/27/2022 Goal Status: Not Achieved Memory: Level of Assistance to Meet Memory: Min assist (10-24%) Details: Recall 3-4 events from PT and OT sessions Expected Achievement Date: 11/27/2022 Goal Status: Not Achieved Additional Cognition: Level of Assistance to Meet Additional Cognition: Min assist (10-24%) Details: Complete visual attention tasks with 80% acc Expected Achievement Date: 11/27/2022 Goal Status: Not Achieved Motor Speech: Level of Assistance to Meet Motor Speech: Mod assist (25-49%) Details: Increase maximum phonation time to 10 seconds Expected Achievement Date: 11/27/2022 Goal Status: Not Achieved Swallowing: Level of Assistance to Meet Swallowing: Standby (less than 10%) Details: Improve OHAT score to zero, initiate SMWP as appropriate Expected Achievement Date: 11/27/2022 Goal Status: Not Achieved Other STG 1: Focus: Motor Speech Level of Assistance to Meet Other STG 1: Independent Details: State three speech intelligibility strategies Expected Achievement Date: 11/27/2022 Goal Status: Not Achieved Other STG 2: Focus: Motor Speech Level of Assistance to Meet Other STG 2: Min assist (10-24%) Details: Demonstrate use of strategies at the phrase level Expected Achievement Date: 11/27/2022 Goal Status: Not Achieved Other STG 3: Focus: Swallowing Level of Assistance to Meet Other STG 3: Standby (less than 10%) Details: Tolerate PO trials ice chips, thickened liquids with <10% overt clinical signs/symptomsaspiration or post-swallow distress Expected Achievement Date: 11/27/2022 Goal Status: Not Achieved Duration Expiration Date: 12/15/[address] 11/20/2022 * Plan of Care - Cristhian Sofia - 11/20/2022 4:11 PM CDT Problem: Infection Goal: Absence of infection and prevention of transmission during hospitalization Outcome: Progressing Problem: Knowledge Deficit Goal: Patient and/or family demonstrate readiness to learn Outcome: Progressing Goal: Patient and/or family verbalizes understanding of education, and/or performs desired skill Outcome: Progressing Problem: Discharge Planning Goal: Discharge to home or other facility with appropriate resources Outcome: Progressing Goal: supervisor engraving will develop a plan to decrease their burden and enhance comfort in role Outcome: Progressing Problem: Pain Goal: Patient's Pain/Discomfort is Manageable Outcome: Progressing Problem: Knowledge Deficit Goal: Patient/family/caregiver demonstrates understanding of disease process, treatment plan, medications, and discharge instructions Outcome: Progressing Problem: Potential for Compromised Skin Integrity Goal: Skin integrity is maintained or improved Outcome: Progressing Goal: Nutritional status is improving Outcome: Progressing Problem: Bowel Incontinence Goal: Perineal Skin Integrity is Maintained or Improved Outcome: Progressing Problem: Knowledge Deficit Goal: Patient and/or family demonstrate readiness to learn Outcome: Progressing Goal: Patient and/or family verbalizes understanding of condition and treatment, education, and/or performs desired skill Outcome: Progressing Problem: Altered neuro status Goal: Achieves stable or improved neurological status Outcome: Progressing Problem: Risk for / Impaired Cognition Goal: Patient has stable or improving cognition Outcome: Progressing Problem: Risk for delirium Goal: Prevents and manages delirium Outcome: Progressing Problem: Risk for / Impaired Communication Goal: Establish communication to meet the patient/caregiver needs Outcome: Progressing Problem: Risk for / Impaired Mobility (Activity Intolerance) Goal: Mobility/activity is maintained at optimum level for patient Outcome: Progressing Problem: Self-Care Deficit Goal: Achieves maximum function and self-care Outcome: Progressing Problem: Risk for / Imbalanced Nutrition Goal: Maintains adequate nutritional intake Outcome: Progressing Problem: Risk for/Anxiety Goal: Demonstrates ability to cope effectively Outcome: Progressing Problem: Risk for/ impaired bladder elimination (bowel/bladder) Goal: Patient has stable or improved bladder elimination Outcome: Progressing Problem: Risk for /Impaired bowel Goal: Patient has stable or improved bowel elimination Outcome: Progressing Problem: Risk for Infection Goal: Absence of infection and prevention of transmission during hospitalization Outcome: Progressing Problem: Risk for / Impaired Skin Integrity Goal: Skin integrity is maintained or improved Outcome: Progressing Problem: Risk for altered SNS response Goal: Reduce risk and mointor for uninhibited response of sympathetic nervous system Outcome: Progressing Problem: Risk for seizure activity Goal: Absence of seizures Outcome: Progressing Goal: Remains free of injury related to seizures activity Outcome: Progressing Problem: Risk for Aspiration Goal: Patient is free of signs of aspiration and the risk of aspiration is decreased Outcome: Progressing Problem: Fall Safety: [place] Precautions Goal: Free from fall injury Outcome: Progressing Problem: Fall Huddle Goal: Free from Fall Injury Outcome: Progressing Problem: Fall Prevention: Neglect/Hemiparesis Bundle Goal: Patient will be free from Fall Injury Outcome: Progressing * PT Weekly Progress Note - Myra Obregon, PT - 11/20/2022 3:46 PM CDT PT Weekly Progress Note Patient Name: Consuelo Darby Patient Birthdate: 1980 PT CURRENT FUNCTIONAL STATUS: PT Current Functional Status: PT Current Functional Status: BED MOBILITY: Sit to/from supine: unsafe to attempt due to pain and decreased tolerance to upright position. Rolling with Mod-MaxA of two people TRANSFERS Sit to/from stand: unsafe to attempt at this time due to pain and mobility limitations Stand pivot: unsafe to attempt at this time due to pain and mobility limitations Transfers: dependent via little lift bed<>wc Car transfer: unsafe to attempt at this time due to pain and mobility limitations GAIT Unsafe to attempt ambulation 10, 50',150' and 10' on compliant surface due to pain and mobility limitations Retrieves object from floor in standing: Unsafe to retrieve object from due to pain and mobility limitations STAIRS Acscends/descends 1,4, 12 steps unsafe to attempt at this time due to pain and mobility limitations WHEELCHAIR MOBILITY Unsafe to attempt wheelchair mobility due to pain and requiring [id number] chair to accommodate patient's decrease tolerance to upright position with nausea. OUTCOME MEASURES: AGITATED BEHAVIOR SCALE 17 POSTURAL ASSESSMENT OF STROKE 2 (Unable to attempt tasks other than rolling due to pain.) 10 METER WALK TEST unsafe to attempt Pt able to transfer to wheelchair dependently via little lift, but limited overall by L hemiparesis and tone vs spasticity, decreased tolerance to upright position, and decreased tolerance to helmet wearing. Patient to benefit from ongoing intensive therapy to maximize mobility and tolerance to activity. Factors in Goal Achievement: Facilitating Factors: Patient understanding and knowledge and Support of family or caregiver Barriers: Pain, Motor control deficits, Medical Complications, Balance deficits and Spasticity Date Last Assessed: 11/20/2022 CARE Score Fields: 6: Independent. [place] provides no assistance with tasks. A device may or may not have been used. 5: Set-up or clean-up assistance. [place] sets up or cleans up, but does not assist with tasks. [place] may have assisted prior to or following the activity. 4: Supervision or touching assistance. [place] provides verbal cues or touching/steadying or contactguard assistance. Assistance may be provided throughout the activity or intermittently. 3: Partial/moderate assistance. [place] does less than half the effort. [place] lifts, holds, or supports trunk or limbs, but provides less than half the effort. 2: Substantial/maximal assistance. [place] does more than half the effort. [place] lifts or holds trunk or limbs, and provides more than half the effort. 1: Dependent. [place] does all of the effort, or the assistance of two or more helpers is required for the patient to complete the activity. -: Inconsistent or incomplete documentation Activity not attempted values: 7: Patient refused 9: Not applicable - Not attempted and the patient did not perform this activity prior to the current illness, exacerbation, or injury. 10: Not attempted due to environmental limitations (e.g., lack of equipment, weather constraints) 88: Not attempted due to medical condition or safety concerns Mcfp Goals: Goal Status on Admission Current Status Car Transfer LTG: Partial/moderate assistance (Patient will complete car transfer with moderate assist to be able to transport in a personal vehicle.) Car Transfer - CARE Score: 88 (11/18/22 1006 : Roxanne Goldberg, PT) Car Transfer - CARE Score: 88 (11/18/221005) Walk 10 Feet - CARE Score: 88 (11/18/221005 : Roxanne Goldberg PT) Walk 10 Feet - CARE Score: 88 (11/18/221005) Walk 50 Feet with Two Turns - CARE Score: 88 (11/18/221005 : Roxanne Goldberg PT) Walk 50 Feet with Two Turns - CARE Score: 88 (11/18/221005) Walk 150 Feet - CARE Score: 88 (11/18/221005 : Roxanne Goldberg PT) Walk 150 Feet - CARE Score: 88(11/18/221005) Walking 10 Feet on Uneven Surfaces - CARE Score: 88 (11/18/221005 : Roxanne Goldberg PT) Walking 10 Feet on Uneven Surfaces - CARE Score: 88 (11/18/221005) 1 Step (Curb) - CARE Score: 88 (11/18/221005 : Roxanne Goldberg PT) 1 Step (Curb) - CARE Score: 88(11/18/221005) 4 Steps - CARE Score: 88 (11/18/221005 : Roxanne Goldberg PT) 4 Steps - CARE Score: 88 (11/18/221005) 12 Steps - CARE Score: 88 (11/18/221005 : Roxanne Goldberg PT) 12 Steps - CARE Score: 88 () Picking Up Object - CARE Score: 88 (11/18/221005 : Roxanne Goldberg PT) Picking Up Object - CARE Score: 88 (11/18/221005) Wheel 50 Feet with Two Turns LTG: Supervision or touching assistance (Patient will be able to wheel50 ft including navigating the environment with touching assistance.) Wheel 50 Feet with Two Turns - CARE Score: 88 (11/18/221005 : Roxanne Goldberg PT) Wheel 50 Feet with Two Turns - CARE Score: 88(11/18/221005) Wheel 150 Feet - CARE Score: 88 (11/18/221005 : Roxanne Goldberg PT) Wheel 150 Feet - CARE Score: 88 (11/18/22 1006) Additional Goals & Status: N/A PT Other Ranch Helper Goals Flowsheet Row Most Recent Value Other PT Ranch Helper Goals Other Goals - [facility]fp Ranch Helper 1, Ranch Helper 2 Filed on: 11/18/2022 105 Other Ranch Helper Goal 1 Patient will complete transfers with moderate assist of one person. Filed on: 11/18/2022 105 Other [facility] Helper Goal 1 Status Established Filed on: 11/18/2022 105 Other [facility]fp Goal 2 Patient will complete bed mobility including rolling and supine<> sit transitions with minimal assistance. Filed on: 11/18/2022 105 Other [facility] Goal 2 Status Established Filed on: 11/18/20221056 Expected Achievement Date 12/15/22 Filed on: 11/18/2022 105 PT Short Term Goal 1: Focus: Other Details: Patient will be able to tolerate being out of bed and seated in her wheelchair for increased engagement within therapy session. Expected Achievement Date: 11/25/2022 Goal Status: Established PT Short Term Goal 2: Focus: Other (Bed mobility) Level of Assistance to Meet Short Term Goal: Physical assistance 75% or more Details: Patient will complete rolling in bed with maximal assist of one. Expected Achievement Date: 11/25/2022 Status: Established PT Short Term Goal 3: Level of Assistance to Meet Short Term Goal: Total assistance Details: Patient will be able to complete sit <> supine transitions with two person moderate assist. Status: Established Duration Expiration Date: 12/17/2022 MYRA OBREGON, PT 11/20/2022 * Wound Progress Note - Beverly Clark RN - 11/20/2022 3:11 PM CDT Wound Progress Note Reason for wound Consult: Admission Patient is awake, alert, and oriented with delayed responses and slurred speech. Pt here for R CVA with L hemiplegia. 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 On Meropenem IV. Pt has Puentes. Max x2 to roll, little dependent for transfer. NPO with tube feeding running at 50mL/hr. Skin intact. Consuelo Darby is a 42 y.o. female with the following Problems. Patient Active Problem List Diagnosis Cerebrovascular accident Hypertension Past Medical History: Past Medical History: Diagnosis Date Gastroesophageal reflux disease Hypertension Migraine Past Surgical History: Past Surgical History: Procedure Laterality Date SECTION CHOLECYSTECTOMY PEG TUBE PLACEMENT Allergies: Latex Kadeem Score: Kadeem Scale Score: 17 Wound/Ulcer Assessment: Bony prominences intact, interventions ordered per protocol for low level of function. Recommendations: PELON-AP mattress. Turn q2hrs while in bed. Frequent glenis care and Puentes catheter care to prevent infection and skin breakdown. Prevalon boot or gel socks while in bed to BLE Signature: BEVERLY CLARK RN Date: 11/20/2022 Time: 3:11 PM CDT * OT Treatment Note - Verena Suárez - 11/20/2022 1:00 PM CDT Occupational Therapy Treatment Patient Name: Consuelo Darby Patient Birthdate: 1980 Patient Subjective Report - When completing visual acuity test, client reports it feels like I am too far away (client is about 10 feet away from vision screen. Pain Assessment Pain Context: Therapy Assessment Prior to Treatment (11/20/22 1300) Pain Assessment: None/denies pain (11/20/22 1300) ADL Training: ADL Training Narrative: Upon arrival, client is supine in bed and is agreeable to therapy. Client participates in ADLs and functional transfers with the following details: ORAL HYGIENE: Minimum assistance; for use of suction. Client able to flip cap open with use R hand.Client requires hand over hand assistance to apply toothpaste to toothbrush. Client able to brush teeth with R hand and able to spit a minimal amount with verbal cues for initiation. Throughout activity, client requires verbal and tactile cues for sequencing and motor planning. To end session, client participates in LUE PROM exercises to decrease tightness and tone to preparefor return of function for ADLs and functional transfers. Therapist completes PROM on client with 2sets of 5 repetitions of the following exercises: hand/digit extension, shoulder flexion, elbow flexion, forearm pronation/supination. Verbal cues to look at L arm, however, client was unable to. Therapist educates client on performing PROM on self and client verbalizes understanding. Perform In-Depth Visual Assessment?: Yes Vision Assessment Perform Visual Assessment Yes Glasses Far Acuity Tested with glasses Near-Far Acuity Score (Client able to see first line and part of second line (unable to see the letter on the left side of Line 2) from 2 feet away, however, was unable to see 10 feet away - completes with use of glasses.) Fixation Impaired (Attempted to complete assessment, unable due to poor cognition. Functionally, client struggles to focus vision on objects. Client unable to fixate on objects/items in L visual field.) Visual Powell Not tested (Unable to test successfully due to cognition. Client unable to fixate on objects/items in L visualfield, despite verbal cuing.) Pursuits Impaired (Significant delay/minimal ability to visually track target.) Clock Drawing Impaired 4 out of 4 (spaces between ely [place], incorrect spacing of numbers, no clock hands, no time) Star Cancellation Test Errors (R and L omissions, circles some stars (7 stars located) only on far R side, circling blank spaces on far R side) LINE BISECTION TEST Bisects to right of midline (Suspect L neglect as client weiss on R side only. Does not gisselle on lines, weiss on open spaces. 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 Evaluation Yes Treatment, Outcomes and Plan: OT Narrative:: Vision screen assessed this date (at bed level) and will be recommended to neuro-farm implement engine mechanic. Please see chart above for more details. Oral hygiene and vision screen completed at bed-level due to feelings of nausea from prior PT session and time constraints. Client presents with deficits in cognition and requires verbal cues for attention to task, motor planning, and sequencing during treatment session. Continue to progress client towards established goals to increase participation and independence with ADLs and functional transfers. OT Treatment Outcomes:: Safety device reapplied, Precautions maintained throughtout session, Medical issues limiting patient progress and Patient tolerated treatment fairly OT Summary Plan of Care: Continue with current plan of care Pain Evaluation and Follow-up Pain Reassessment: 0, No pain (11/20/22 1344) Nursing notified of patient's pain assessment: Not indicated - pain score 2 or less (11/20/22 1344) Therapy Minutes Individual Concurrent Co-Treat Individual (OT) Time In : 1300 Time Out: 1345 Total Time with Patient (Min): 45 min Missed Minutes : 0 VERENA SUÁREZ 11/20/2022 Cosigned by Lauren Paul, OT at 11/20/2022 4:48 PM CDT * OT Weekly Progress Note - Verena Suárez - 11/20/2022 12:45 PM CDT Occupational Therapy Weekly Progress Note Patient Name: Consuelo Darby Patient Birthdate: 1980 OT Current Functional Status: Ms. Darby's current functional status is as follows, per available documentation: EATING: NPO, dependent for continuous tube feeding (g-tube). BOX OFFICE AGENT she was on a normal diet ORAL HYGIENE: Minimum assistance; for use of suction. Client able to flip cap open with use R hand.Client requires hand over hand assistance to apply toothpaste to toothbrush. Client able to brush teeth with R hand and able to spit a minimal amount with verbal cues for initiation. Throughout activity, client requires verbal and tactile cues for sequencing and motor planning. TOILETING: dependent, assist needed for all aspects BATHING: dependent, assist needed for all aspects; task modified to bed level for safety, two person assist needed for rolling to complete LB bathing UB DRESSING: dependent, assist for all aspects when seated in w/c LB DRESSING: dependent, assist for all aspects, done bed level for safety; two person assist neededfor rolling completely during task PUTTING ON/TAKING OFF FOOTWEAR: dependent ROLL LEFT AND RIGHT: dependent SIT TO LYING: NT b/c of safety concerns with balance LYING TO SITTING: NT b/c of safety concerns with balance SIT TO STAND: NT b/c of safety concerns BED TO CHAIR TRANSFER: dependent with use of little lift--2 person assist needed TOILET TRANSFER: NT b/c of safety concerns with balance. Ms. Hernandez demonstrates minimal progress in the areas of ADLs and functional transfers due to participating in one therapy session since evaluation (11/18/22). At time of initial evaluation, she required Total assistance for most activities and still completes with Total assistance. Barriers include significant pain (headaches), L hemiplegia, and significant deficits in balance, strength, activity tolerance, executive function, communication, oculomotor skills, and coordination. She will benefit from continued skilled OT to address these deficits and maximize safety and independence in ADLs andfunctional transfers. Facilitating Factors in Goal Achievement: Patient compliance, Support of family or caregiver and Support of significant other Barriers to Goal Achievement: Visual deficits, Decreased safety awareness, Decreased patient understanding, Cognitive deficits, Medical complications, Strength limitations, Diminished endurance, Balance deficits, Tone deficits and ROM limitations Date Last Assessed: 11/20/2022 Patient needs assistance with the following activities: Activities of daily living, Going out in the community, Memory, Positioning, Rolling, Use of bathroom equipment, Use of patient user experience manager and Sitting balance CARE Score Fields: 6: Independent. [place] provides no assistance with tasks. A device may or may not have been used. 5: Set-up or clean-up assistance. [place] sets up or cleans up, but does not assist with tasks. [place] may have assisted prior to or following the activity. 4: Supervision or touching assistance. [place] provides verbal cues or touching/steadying or contactguard assistance. Assistance may be provided throughout the activity or intermittently. 3: Partial/moderate assistance. [place] does less than half the effort. [place] lifts, holds, or supports trunk or limbs, but provides less than half the effort. 2: Substantial/maximal assistance. [place] does more than half the effort. [place] lifts or holds trunk or limbs, and provides more than half the effort. 1: Dependent. [place] does all of the effort, or the assistance of two or more helpers is required for the patient to complete the activity. -: Inconsistent or incomplete documentation Activity not attempted values: 7: Patient refused 9: Not applicable - Not attempted and the patient did not perform this activity prior to the current illness, exacerbation, or injury. 10: Not attempted due to environmental limitations (e.g., lack of equipment, weather constraints) 88: Not attempted due to medical condition or safety concerns Ranch Helper Goals: Goal Status on Admission Current Status Eating LTG: Supervision or touching assistance Eating - CARE Score: 88 (11/18/22 1252 : Roland Eubanks OT) Eating - CARE Score: 88 (11/20/221650) Oral Hygiene LTG: Supervision or touching assistance Oral Hygiene - CARE Score: 2 (11/18/22 1252 : Roland Avendano OT) Oral Hygiene - CARE Score: 3 (11/20/221650) Toileting Hygiene LTG: Partial/moderate assistance Toileting Hygiene - CARE Score: 1 (11/18/22 1252: Roland Avendano OT) Toileting Hygiene - CARE Score: 1 (11/20/221650) Shower/Bathe Self LTG: Partial/moderate assistance Shower/Bathe Self - CARE Score: 1 (11/18/22 1252: Roland Avendano OT) Shower/Bathe Self - CARE Score: 1 (11/20/221650) Upper Body Dressing LTG: Partial/moderate assistance Upper Body Dressing - CARE Score: 1 (11/18/22 1252 : Roland Avendano OT) Upper Body Dressing - CARE Score: 1 (11/20/221650) Lower Body Dressing LTG: Partial/moderate assistance Lower Body Dressing - CARE Score: 1 (11/18/22 1252 : Roland Avendano OT) Lower Body Dressing - CARE Score: 1 (11/20/221650) Putting On/Taking Off Footwear LTG: Partial/moderate assistance Putting On/Taking Off Footwear - CARE Score: 1 (11/18/22 1252 : Roland Avendano OT) Putting On/Taking Off Footwear - CARE Score: 1 (11/20/221650) Roll Left and Right - CARE Score: 1 (11/18/22 1252 : Roland Avendano OT) Roll Left and Right - CARE Score: 1 (11/20/221650) Sit to Lying - CARE Score: 88 (11/18/22 1252 : Roland Avendano OT) Sit to Lying - CARE Score:88 (11/20/221650) Lying to Sitting on Side of Bed - CARE Score: 88 (11/18/22 1252 : Roland A. Avendano, OT) Lying to Sitting on Side of Bed - CARE Score: 88 (11/20/221650) Sit to Stand - CARE Score: 88 (11/18/22 1252 : Roland Avendano, OT) Sit to Stand - CARE Score:88 (11/20/221650) Chair/Hlm-nt-Cpzhh Transfer LTG: Partial/moderate assistance Chair/Avk-qb-Pvxfl Transfer - CARE Score: 1 (11/18/22 1252 : Roland Avendano OT) Chair/Oxw-pv-Aqkus Transfer - CARE Score: 1 (11/20/221650) Toilet Transfer LTG: Partial/moderate assistance Toilet Transfer - CARE Score: 88 (11/18/22 1252 : Roland Avendano OT) Toilet Transfer - CARE Score: 88 (11/20/221650) OT Short Term Goal 1: Focus: Toileting Hygiene Level of Assistance to Meet Short Term Goal: Physical assistance 50%-74% Expected Achievement Date: 11/27/2022 Goal Status: Not Achieved OT Short Term Goal 2: Focus: Shower/Bathe Level of Assistance to Meet Short Term Goal: Physical assistance 50%-74% Expected Achievement Date: 11/27/2022 Goal Status: Not Achieved OT Short Term Goal 3: Focus: Upper Body Dressing Level of Assistance to Meet Short Term Goal: Physical assistance 50%-74% Expected Achievement Date: 11/27/2022 Goal Status: Not Achieved OT Short Term Goal 4: Focus: Lower Body Dressing Level of Assistance to Meet Short Term Goal: Physical assistance 50%-74% Expected Achievement Date: 11/27/2022 Goal Status: Not Achieved OT Short Term Goal 5: Focus: Chair/Bed Transfer Level of Assistance to Meet Short Term Goal: Physical assistance 50%-74% Expected Achievement Date: 11/27/2022 Goal Status: Not Achieved OT Short Term Goal 6: Focus: Toilet Transfer Level of Assistance to Meet Short Term Goal: Physical assistance 50%-74% Expected Achievement Date: 11/27/2022 Goal Status: Not Achieved Duration Expiration Date: 12/16/2022 VERENA SUÁREZ 11/20/2022 Cosigned by Lauren Paul OT at 11/20/2022 5:33 PM CDT * Plan of Care - Karolina Parks RD - 11/20/2022 12:02 PM CDT Problem: Inadequate Oral Intake Description: Oral food/beverage intake that is less than established reference standards or recommendations based on physiological needs. Related to: dysphagia As evidenced by: need for TF to meet nutritional needs. Goal: Maintain Nutritional Status Outcome: Progressing Flowsheets (Taken 11/20/2022 1201) Enteral and Parenteral Nutrition: Enteral nutrition * PT Treatment Note - Myra Obregon, PT - 11/20/2022 10:30 AM CDT PT Treatment Patient Name: Consuelo Darby Patient Birthdate: 1980 Patient Subjective Report - Patient notes she is trying, notes head/neck uncomfortable and may try neck pillow. RN paused tube feed during mobility, disconnected prior, reconnected after session. RN updated on progress in order to relay information to patient's family. Pain Assessment Pain Score: 6 - Moderate Pain (11/20/221030) Pain Severity - NRS (Calculated): Moderate (11/20/221030) Pain Location: Head (11/20/221030) Pre-therapy pain intervention required: Nurse notified, Patient expressed pain is tolerable/able toproceed (11/20/221030) Pain Interventions Education Provided: Patient (11/20/221030) Non-Pharmacologic Pain Interventions: Distractions, Position/Reposition, Exercise/Activity (11/20/221030) Vital Signs BP: 126/84 (11/20/221030) MAP (mmHg): 98 (11/20/221030) BP Location: Right arm (11/20/221030) BP Method: Automatic (11/20/221030) Patient Position: Sitting (11/20/221030) BED MOBILITY: - Rolling with Mod-MaxAx2 persons, demos x4 reps to L and R during session to pull up pants and place/remove sling TRANSFERS: - bed<>wc with little dependent lift, Ax2-3 for lift use and to assist in positioning patient in wheelchair and bed THERAPEUTIC ACTIVITIES: - PROM LLE x15 reps hip flexion, Hip ER/IR, knee flexion/extension, ankle DF/PF with increased tonevs spasticity throughout LLE - Pt seated in Tilt in space wheelchair partially tilted about 20-30mins, pt with concerns of helmet tightness, adjusted padding with pt noting improved fit. Pt educated extensively on goal to progress tolerance to helmet wearing as well as sitting tolerance. Pt saying she needs to return to bed after seated this length of time, mild increase in time with encouragement but pt adamant she needs toreturn to bed. PT Treatment Outcomes:: Safety device reapplied PT Summary:: Pt tolerates session fairly, appears to have decreased tolerance for helmet and sitting in reclined position and limited by nausea, continue to progress as able. Pain Evaluation and Follow-up Pain Reassessment: 7 (reassessed 1158) (11/20/22 1031) Nursing notified of patient's pain assessment: Primary Nurse (11/20/22 1031) Therapy Minutes Individual Concurrent Co-Treat Individual (PT) Time In : 1030 Time Out: 1200 Total Time with Patient (Min): 90 min MYRA OBREGON, PT 11/20/2022 * Individualized Overall Plan of Care - Yamileth Frias MD - 11/20/2022 9:30 AM CDT Images from the original note were not included. INDIVIDUALIZED OVERALL PLAN OF CARE I have reviewed the admitting History and Physical examination on oCnsuelo Darby and monitored the patient's status and progress since the admission. Based on the patient's multi-disciplinary evaluations, deficits, and functional needs, my plan of care is inclusive of the following therapies and associated goals: Physical Therapy The following physical therapy plan of care is recommended for Ms. Darby PT Plan of Care & Recommendations Evaluation Summary: Consuelo Darby presents to rehab due to : Acute R MCA stroke 10/19/22 s/p TNK and tenecteplase and thrombectomy . She had a hemicraniectomy on 10/20/22 due to cerebral edema and midline shift. While in the hospital, she had right iliac and common femoral artery occlusion with subsequent right common femoral thrombectomy and patch angioplasty 10/30/22. Her current deficits include left hemiplegia and left sided sensory deficits to light touch. Her PT assessment was limited due to severe pain in her head. Nurse notified and present at end of session. Precautions: Strict NPO, must wear helmet for transfers and when out of bed. 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 Unable to assess further mobility due to severe pain in her head with the helment. Potential for therapy: Fair to good. Patient has a supportive spouse and appears motivated. Problem List: Decreased coordination; Decreased endurance; Decreased mobility; Decreased postural alignment in sitting/standing; Decreased range of motion; Decreased strength; Hemisensory Deficits; Impaired ambulation ability; Impaired bed mobility; Impaired elevation ability; Impaired sensation; Impaired tone; Pain PT to provide the following services: Aerobic/Endurance conditioning; Adaptive equipment/DME prescription and application; Balance/proprioceptive training; Body Weight Support System; Education - patient/family; Fall prevention; Gait training; Home Exercise Program (HEP) prescription; Neuromuscular re-education; Orthotic/prosthetic prescription/application; Sensory integration; Therapeutic activities; Therapeutic exercise; Therapeutic taping; Wheelchair safety and mobility training Frequency: 45-90 minutes 5 out of 7 days Duration (# of Days): 30 Duration Expiration Date: 12/17/22 Ms. Darby will achieve the following: [place] Goals: Car Transfer LTG: Partial/moderate assistance (Patient will complete car transfer with moderate assist to be able to transport in a personal vehicle.) Wheel 50 Feet with Two Turns LTG: Supervision or touching assistance (Patient will be able to wheel50 ft including navigating the environment with touching assistance.) PT Other Ranch Helper Goals Flowsheet Row Most Recent Value Other PT Ranch Helper Goals Other Goals - Mcfp [place] Hel[place] 1, Mcfp 2 Filed on: 11/18/2022 1059 Other Ranch [facility] Goal 1 Patient will complete transfers with moderate assist of one person. Filed on: 11/18/2022 1057 Other Mcfp Goal 1 Status Established Filed on: 11/18/2022 1057 Other Mcfp Goal 2 Patient will complete bed mobility including rolling and supine<> sit transitions with minimal assistance. Filed on: 11/18/2022 1057 Other Mcfp Goal 2 Status Established Filed on: 11/18/2022 1057 Expected Achievement Date 12/15/22 Filed on: 11/18/2022 1057 Occupational Therapy: The following occupational therapy plan of care is recommended for Ms. Darby: OT Plan of Care & Recommendations Evaluation Summary: Ms Darby is a 42 year old woman with diagnosis of CVA. She had a thrombectomy on 10/19/22, complicated by cerebral edema and midline shift, s/p hemicraniectomy on 10/20/22. She has PMH of Gerd, HTN, and hemiplegic migraine. Precautions: full code, strict NPO (continuous tube feeding), helmet on when out of bed, fall, aspiration, dysphagia, pressure relief schedule Ms Darby's current functional status is as follows: EATING: NPO, dependent for continuous tube feeding (g-tube). 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 Speech therapist reports that she plans to make sure suction is available. TOILETING: dependent, assist needed for all aspects BATHING: dependent, assist needed for all aspects; task modified to bed level for safety, two person assist needed for rolling to complete LB bathing UB DRESSING: dependent, assist for all aspects when seated in w/c LB DRESSING: dependent, assist for all aspects, done bed level for safety; two person assist needed for rolling completely during task PUTTING ON/TAKING OFF FOOTWEAR: dependent ROLL LEFT AND RIGHT: dependent SIT TO LYING: NT b/c of safety concerns with balance LYING TO SITTING: NT b/c of safety concerns with balance SIT TO STAND: NT b/c of safety concerns BED TO CHAIR TRANSFER: dependent with use of little lift--2 person assist needed TOILET TRANSFER: NT b/c of safety concerns with balance. Ms Darby was transferred to standard w/c with use of little lift and two person assist. She was dependent for positioning in w/c. She presents with poor sitting balance in w/c and tended to shift her hips forward in chair. She complained of headache and being bothered by the helmet and requested to be returned to bed after being out of bed for about 20 minutes. (Family reports that she hasn't worn the helmet much and hasn't been out of bed much). She was returned to bed with use of little lift with assistance of 3 staff members. She requested removal of helmet once returned to bed. Trial of tilt in space wheelchair recommended for when she is transferred out of bed next. Problem List: Visual deficits; Decreased functional endurance; Decreased functional status in ADL's; Impaired balance; Mobility; Decreased transfer status; Decreased upper extremity strength; Decreased upper body strength; Impaired muscle tone; Decreased upper extremity range of motion; Decreased fine motor coordination; Impaired gradation of grasp; Impaired hand eye coordination; Impaired visual and/or perceptual skills; Impaired cognitive skills OT to provide the following services: ADL and Transfer Training; Neuromusculature Re-education; UE Therex; Visual/Perceptual Skills Training; Cognitive Retraining; Visual/Perceptual Compensatory education; Balance Training; Coordination Training; Functional Endurance Training; Energy Conservation and Activity Modifications; Adaptive Equipment/DME Education; Positioning Frequency: 45-90 minutes 5 out of 7 days Duration (# of Days): 28 Duration Expiration Date: 12/16/22 Ms. Darby will achieve the following: Mcfp Goals: Eating LTG: Supervision or touching assistance Oral Hygiene LTG: Supervision or touching assistance Toileting Hygiene LTG: Partial/moderate assistance Shower/Bathe Self LTG: Partial/moderate assistance Upper Body Dressing LTG: Partial/moderate assistance Lower Body Dressing LTG: Partial/moderate assistance Putting On/Taking Off Footwear LTG: Partial/moderate assistance Chair/Hwo-ac-Qrmkq Transfer LTG: Partial/moderate assistance Toilet Transfer LTG: Partial/moderate assistance Speech Therapy: The following speech therapy plan is recommended for Ms. Darby: [employer] Plan of Care & Recommendations [employer] Evaluation Summary Ms. Darby is a 42 year-old female referred to speech therapy for evaluation and treatment following recent hospitalization with a diagnosis of stroke. Past medical history is significant for abdominal pain right upper quadrant, hemiplegic migraine, GERD, HTN. Prior to referral for a rehabilitation admission, patient did not require assistance for household ambulation, community level ambulation or self-care activities. Precautions include: fall, latex Ms. Darby's current functional status is as follows: DIET: NPO for solids, NPO for liquids, medication via PEG. Oral [facility] exam significant for noted severe dried lingual secretions when pt yawned during completion of OHAT. Pt with impaired oral-motor command following despite model, verbal cues for adequate oral care via toothette moistened in ice water. Pt managing secretions with occasional reflexive swallow. Pt with non-preference for upright positioning for PO trials, PO trials deferred. Suction not set up at bedside, suction toothbrush not set up at bedside; nursing informed and aware. Nursing informed and aware of pt need for frequent and aggressive oral care due to compromised oral health; oral care recommendations written on pink swallow guideline sheet in pt room; oral care orders entered for pt in [facility]. Recommend continue NPO for solids, NPO for liquids, medication via PEG. Pt awaiting CT scan due to head pain level 10. SWALLOWING STRATEGIES: N/A due to NPO status COMPREHENSION: Minimal Assistance - able to answer simple and complex Y/N questions, able to follow 1-3 step and complex auditory commands; impaired following or oral-motor commands due to oral apraxia; limited assessment due to pt fluctuating alertness; pt able to tell clock time at a distance wearing glasses; pt able to dial landline phone wearing glasses; pt unable to read information on white board in room, suspect left-sided inattention; LAST-b Language Screening Test Receptive Index: 5/7; suspect left upper quandrant inattention due to pt inability to name two pictured objects in that region of the page EXPRESSION: Moderate Assistance - Mod-severe dysarthria with impaired breath support for speech, fast rate of speech, impaired oral-motor ROM impacting articulation; further assessment warranted; LAST-b Language Screening Test Expressive Index: 8/8; suspect lower left quadrant left-sided inattention as pt named picture of knife as as paper clip SOCIAL INTERACTION: Modified Independent - cooperative, flat affect, montone; intact sense of humor, when therapist complimented pt on pt's 's dedication to her situation, pt replied: You have no idea; structured environment PROBLEM SOLVING: Moderate Assistance - able to locate call light and identify red nurse button independently; stated two solutions to a basic functional problem solving situation; stated one solution to a novel basic functional problem solving situation; stated one solution to a hypothetical basic problem solving situation; able to tell anal; og clock time with glasses; impaired location of information on pt white board in room, suspect left-sided inattention; able to dial landline room phone with supervisory task initiation cues MEMORY: Minimal Assistance - recalled 3/3 items independently following 5 minute delay, recalled 3/3 items independently on BIMs w/cues; recalled one task completed during OT eval, recalled one task completed during PT eval; A&Ox4; limited assessment due to pt dysarthria and impaired breath support for speech to provide therapist with full and accurate accounting of events for assessment of daily recall of events The patient is unable to state stroke risk factors because the patient has not been educated on this information yet. Swallowing: Pt clinically presents with delayed oral transit and oral clearance, delayed swallow initiation, restricted hyo-laryngeal anterior excursion. Pt unable to lick lips after therapist moistened lips with ice chip x2. Pt performed saliva swallow x1 following oral care with toothette to tooth surfaces; pt with impaired oral-motor ROM and impaired oral-motor command following for therapist to address severe tongue coat/dried secretion visible when pt yawned during evalation. Continue NPO for solids, NPO for liquids, medication via TF, frequent and aggressive oral care using suction toothbrush. Speech and Integrative Language: Pt presents with deficits in areas of breath support for speech, speech intelligibility, auditory comprehension, visual attention, and memory for daily events. Pt wears glasses for reading and distance. These impairments limit Mr. Darby's ability to safely consume a regular diet, participate in routine conversations with caregivers, and participate in daily routines safely and independently. Ms. Darby demonstrates good potential for improvement and would benefit from intensive speech therapy services 45-90 minutes daily in an individualized and/or group setting, 5 days/week, focusing on increased safety and independence. Plan of care to include: compensatory strategy training, cognitive and communicative retraining, and patient/family training and education. Therapy Recommendations: Speech therapy services recommended Problem List: Dysarthria; Cognitive Communication Disorder; Apraxia; Pharyngeal Dysphagia; Oral Dysphagia Recommended diet: NPO for Solids; NPO for Liquids - No Liquids by Mouth; No Medication PO; Non-oral means of nutrition and hydration (Comment) Is patient a candidate for [facility] Water Protocol? No Why Not Water Protocol Candidate Poor oral health; Unstable medical condition Compensatory Swallowing Techniques Recommended: N/A due to NPO status Level of Supervision at Meals: N/A due to NPO status [employer] to provide the following services: Basic cognitive communication skills training/strategies; Articulatory precision training/strategies; Auditory comprehension skills; Functional communication skills training/strategies; Ongoing patient/caregiver training; Intensive Oral Care Intervention(s); Speech strategies for intelligibility; Voice production/exercises; Speech motor planning/sequence training/strategies [employer] to provide the following services: Therapeutic feeding trials; Oral motor exercises; Intensive Oral Care Intervention(s); Ongoing patient/caregiver training; Train in compensatory swallowing strategies Frequency: 45-90 minutes over a 7-consecutive day period provided in an alternative schedule to equal a total of 15 hours for all therapy disciplines Duration (# of Days): 28 Duration Expiration Date: 12/15/22 Responsible Speech Therapist: Peyton Hampton Ms. Darby will achieve the following: Ranch Helper Goals: Goal Auditory Comprehension Level of Assistance to Meet Auditory Comprehension: Standby (less than 10%) Auditory Comprehension Details: Demonstrate auditory comprehension of complex questions, directions, and conversation to meet needs, complete tasks and interact socially with others within functionalliving environments Auditory Comprehension Expected Achievement Date: 12/02/22 Memory Level of Assistance to Meet Memory: Standby (less than 10%) Memory Details: Demonstrate functional memory skills for recall of information relating to people, routines, overall health, and safety within functional living environments Memory Expected Achievement Date: 12/02/22 Motor Speech Level of Assistance to Meet Motor Speech: Min assist (10-24%) Motor Speech Details: Demonstrate functional speech intelligibility in multiple environments through self monitoring and implementation of newly learned strategies and exercises Motor Speech Expected Achievement Date: 12/02/22 Swallowing Level of Assistance to Meet Swallowing: Standby (less than 10%) Swallowing Details: Safely consume a regular diet with all liquids with no overt signs or symptoms of aspiration or post swallow distress Swallowing Expected Achievement Date: 12/02/22 Additionally, the patient will receive 24 hour rehabilitation nursing with the following goals: Care Plan Problems/Goals 0 of 6 Goals Met 0 of 6 Met Progressing (6) Absence of infection and prevention of transmission during hospitalization (Infection) Patient's Pain/Discomfort is Manageable (Pain) Skin integrity is maintained or improved (Potential for Compromised Skin Integrity) Nutritional status is improving (Potential for Compromised Skin Integrity) Reduce risk and mointor for uninhibited response of sympathetic nervous system (Risk for altered SNS response) Free from fall injury (Fall Safety: [place] Precautions) Overall, I expect the patient will stay at our facility until approximately 12/01/2022, with an anticipated discharge destination of Patients own home and a tentative discharge plan of Home with day institute. Duration for therapy services would last until patient's discharge date unless new orders state otherwise. The patient's overall plan of care and current status continue to justify the patient's hospital inpatient status. I plan to monitor the patient's health and functional status daily, to assure that there is continuing benefit from our care. The patient's progress towards goals and treatment will also be monitoredon an ongoing basis during team conferences. The patient has a good prognosis for benefiting from this program and returning to home and community. YAMILETH FRIAS MD 11/20/2022 9:30 AM CDT * [employer] Treatment Note - [facility] - 11/20/2022 8:15 AM CDT Speech Language Pathologist Treatment Patient Name: Consuelo Darby Patient Birthdate: 1980 Patient Subjective Report - I'm sorry. My head hurts so bad. Pain Assessment Pain Context: Therapy Assessment Prior to Treatment (11/20/22814) Pain Assessment: NRS 0-10 (11/20/22814) Pain Score: 7 - Severe Pain (11/20/22814) Pain Severity - NRS (Calculated): Severe (11/20/22814) Pain Type: Surgical pain (11/20/22814) Pain Location: Head (11/20/22814) Pain Orientation: Right (11/20/22814) Pain Descriptors: Aching (11/20/22814) Pain Onset: Ongoing (11/20/22814) Pain Frequency: Constant/continuous (11/20/22814) Aggravating Factors: Positioning (11/20/22814) Pre-therapy pain intervention required: Nurse notified (11/20/22814) Pain Interventions Education Provided: Patient (11/20/22858) Non-Pharmacologic Pain Interventions: Distractions, Position/Reposition (11/20/22858) Cognitive Communication: Immediate memory, Orientation, Recall of biographical information, Processing information of increased length or complexity, Semi- complex to complex attention, Verbal problemsolving, Short-term memory and Verbal organization Patient/Caregiver Training: Completed with patient, Therapy goals and treatment plan, Cognitive strategies, Communication strategies, Dysarthria and Swallow strategies ST Narrative:: 1. Patient was seen for therapy in her room, reclined in bed; alert and cooperative with therapy tasks but presented with significant discomfort due to poor positioning in bed and painin her head. Patient's aunt was present in the room. 2. Patient was able to provide biographical information to [employer] who was meeting her for the first time. 3. Patient speech is characterized by dysarthria with impaired articulation affecting overall intelligibility at times. 4. Patient completed a divergent naming task by naming 8 fruits in a one-minute period. 5. Patient completed a convergent naming task with 3/4 correct. 6. Patient provided complete and logical responses for basic and multi-factor problem-solving situations. 7. [employer] discussed NPO status. Patient presents with reduced oral movement of the labial and lingual musculature. [employer] stressed the importance of good oral care. [employer] to make sure that V[employer] oral care products are available for oral care. 8. Patient remained in her room with call light and phone left within reach. Bed alarm activated. Aunt remained present in the room. ST Session Outcomes: Patient/family education progressing, Progressing toward STGs, Tolerated treatment fairly and Minimal cues during session ST Summary Plan of Care: Continue with current plan of care Pain Evaluation and Follow-up Response to Therapy Interventions: Other (comment) (Increased pain noted.) (11/20/22858) Pain Reassessment: 8 (11/20/22858) Nursing notified of patient's pain assessment: Primary Nurse (11/20/22858) Therapy Minutes Individual Concurrent Co-Treat Time In : 814 Time Out: 899 Breaks/Pauses (Min): 0 mins Total Time with Patient (Min): [address] 11/20/2022 * Plan of Care - Archie Loja RN - 11/20/2022 1:45 AM CDT Problem: Infection Goal: Absence of infection and prevention of transmission during hospitalization Outcome: Progressing Flowsheets (Taken 11/20/2022142) Absence of infection and prevention of transmission during hospitalization: Assess and monitor for signs and symptoms of infection and vital signs Monitor all insertion sites i.e., indwelling lines, tubes and drains, obtain order to remove devicewhen no longer clinically necessary Administer medications as ordered Educate patient/family on proper hand washing and infection prevention techniques Educate patient/family regarding signs and symptoms of infection Problem: Pain Goal: Patient's Pain/Discomfort is Manageable Outcome: Progressing Flowsheets (Taken 11/20/2022142) Patient's Pain/Discomfort is Manageable: Assess pain level Include patient/family/caregiver in decisions related to pain management Provide Emotional/Spiritual Support Administer medications as ordered Reassess patient's response and tolerance to discomfort Offer non-pharmocological pain management interventions Assess pain using FLACC, PAINAD or [place]-Guidry Problem: Fall Safety: [place] Precautions Goal: Free from fall injury Outcome: Progressing Flowsheets (Taken 11/20/2022142) Free from fall injury: Perform fall risk assessment and identifiers in place (as applicable) Put call light within reach and teach how to call for assistance, respond to call light immediately Bed low, locked 2 side rails Encourage patient to wear glasses and hearing aids and to use walking aids when ambulating, non skid socks Safe mobility and activity (this could include chair safety) Frequent re-orientation, orient the patient to the environment Fall/safety education for patient/family/SO Assess for environmental or other risks Offer frequent toileting Toilet magnet in place (IR Only) Use of bed/chair alarm Lighting appropriate Frequent rounding/monitoring * Plan of Care - Cristhian Sofia - 11/19/2022 5:12 PM CDT Problem: Infection Goal: Absence of infection and prevention of transmission during hospitalization Outcome: Progressing Problem: Knowledge Deficit Goal: Patient and/or family demonstrate readiness to learn Outcome: Progressing Goal: Patient and/or family verbalizes understanding of education, and/or performs desired skill Outcome: Progressing Problem: Discharge Planning Goal: Discharge to home or other facility with appropriate resources Outcome: Progressing Goal: supervisor engraving will develop a plan to decrease their burden and enhance comfort in role Outcome: Progressing Problem: Pain Goal: Patient's Pain/Discomfort is Manageable Outcome: Progressing Problem: Knowledge Deficit Goal: Patient/family/caregiver demonstrates understanding of disease process, treatment plan, medications, and discharge instructions Outcome: Progressing Problem: Potential for Compromised Skin Integrity Goal: Skin integrity is maintained or improved Outcome: Progressing Goal: Nutritional status is improving Outcome: Progressing Problem: Bowel Incontinence Goal: Perineal Skin Integrity is Maintained or Improved Outcome: Progressing Problem: Knowledge Deficit Goal: Patient and/or family demonstrate readiness to learn Outcome: Progressing Goal: Patient and/or family verbalizes understanding of condition and treatment, education, and/or performs desired skill Outcome: Progressing Problem: Altered neuro status Goal: Achieves stable or improved neurological status Outcome: Progressing Problem: Risk for / Impaired Cognition Goal: Patient has stable or improving cognition Outcome: Progressing Problem: Risk for delirium Goal: Prevents and manages delirium Outcome: Progressing Problem: Risk for / Impaired Communication Goal: Establish communication to meet the patient/caregiver needs Outcome: Progressing Problem: Risk for / Impaired Mobility (Activity Intolerance) Goal: Mobility/activity is maintained at optimum level for patient Outcome: Progressing Problem: Self-Care Deficit Goal: Achieves maximum function and self-care Outcome: Progressing Problem: Risk for / Imbalanced Nutrition Goal: Maintains adequate nutritional intake Outcome: Progressing Problem: Risk for/Anxiety Goal: Demonstrates ability to cope effectively Outcome: Progressing Problem: Risk for/ impaired bladder elimination (bowel/bladder) Goal: Patient has stable or improved bladder elimination Outcome: Progressing Problem: Risk for /Impaired bowel Goal: Patient has stable or improved bowel elimination Outcome: Progressing Problem: Risk for Infection Goal: Absence of infection and prevention of transmission during hospitalization Outcome: Progressing Problem: Risk for / Impaired Skin Integrity Goal: Skin integrity is maintained or improved Outcome: Progressing Problem: Risk for altered SNS response Goal: Reduce risk and mointor for uninhibited response of sympathetic nervous system Outcome: Progressing Problem: Risk for seizure activity Goal: Absence of seizures Outcome: Progressing Goal: Remains free of injury related to seizures activity Outcome: Progressing Problem: Risk for Aspiration Goal: Patient is free of signs of aspiration and the risk of aspiration is decreased Outcome: Progressing Problem: Fall Safety: [place] Precautions Goal: Free from fall injury Outcome: Progressing Problem: Fall Huddle Goal: Free from Fall Injury Outcome: Progressing Problem: Fall Prevention: Neglect/Hemiparesis Bundle Goal: Patient will be free from Fall Injury Outcome: Progressing * Plan of Care - Archie Loja RN - 11/19/2022 1:43 AM CDT Problem: Fall Prevention: Neglect/Hemiparesis Bundle Goal: Patient will be free from Fall Injury Outcome: Progressing Flowsheets (Taken 11/19/2022140) Patient will be free from Fall Injury: Bed/Chair alarms Use lift equipment Consult with therapy for appropriate transfer techniques Problem: Fall Safety: [place] Precautions Goal: Free from fall injury Outcome: Progressing Flowsheets (Taken 11/19/2022140) Free from fall injury: Perform fall risk assessment and identifiers in place (as applicable) Put call light within reach and teach how to call for assistance, respond to call light immediately Bed low, locked 2 side rails Encourage patient to wear glasses and hearing aids and to use walking aids when ambulating, non skid socks Safe mobility and activity (this could include chair safety) Frequent re-orientation, orient the patient to the environment Fall/safety education for patient/family/SO Assess for environmental or other risks Toilet magnet in place (IR Only) Offer frequent toileting Use of bed/chair alarm Lighting appropriate Frequent rounding/monitoring Problem: Potential for Compromised Skin Integrity Goal: Skin integrity is maintained or improved Outcome: Progressing Flowsheets (Taken 11/19/2022140) Skin Integrity is Maintained or Improved: Collaborate with WOCN/Wound Nurse Relieve pressure to bony prominences, avoid shearing Assess skin and skin risk for breakdown Turn Patient Keep skin clean and dry Monitor and teach appropriate hygiene practices Problem: Pain Goal: Patient's Pain/Discomfort is Manageable Outcome: Progressing Flowsheets (Taken 11/19/2022140) Patient's Pain/Discomfort is Manageable: Assess pain level Include patient/family/caregiver in decisions related to pain management Provide Emotional/Spiritual Support Administer medications as ordered Offer non-pharmocological pain management interventions Assess pain using FLACC, PAINAD or [place]-Guidry Reassess patient's response and tolerance to discomfort * Plan of Care - Tatianna Pan RN - 11/18/2022 3:48 PM CDT Problem: Infection Goal: Absence of infection and prevention of transmission during hospitalization Outcome: Progressing Flowsheets (Taken 11/18/2022 1317) Absence of infection and prevention of transmission during hospitalization: Assess and monitor for signs and symptoms of infection and vital signs Monitor lab/diagnostic results Administer medications as ordered Problem: Knowledge Deficit Goal: Patient and/or family demonstrate readiness to learn Outcome: Progressing Goal: Patient and/or family verbalizes understanding of education, and/or performs desired skill Outcome: Progressing Problem: Discharge Planning Goal: Discharge to home or other facility with appropriate resources Outcome: Progressing Goal: supervisor engraving will develop a plan to decrease their burden and enhance comfort in role Outcome: Progressing Problem: Pain Goal: Patient's Pain/Discomfort is Manageable Outcome: Progressing Problem: Knowledge Deficit Goal: Patient/family/caregiver demonstrates understanding of disease process, treatment plan, medications, and discharge instructions Outcome: Progressing Problem: Potential for Compromised Skin Integrity Goal: Skin integrity is maintained or improved Outcome: Progressing Goal: Nutritional status is improving Outcome: Progressing Problem: Bowel Incontinence Goal: Perineal Skin Integrity is Maintained or Improved Outcome: Progressing Problem: Knowledge Deficit Goal: Patient and/or family demonstrate readiness to learn Outcome: Progressing Goal: Patient and/or family verbalizes understanding of condition and treatment, education, and/or performs desired skill Outcome: Progressing Problem: Altered neuro status Goal: Achieves stable or improved neurological status Outcome: Progressing Problem: Risk for / Impaired Cognition Goal: Patient has stable or improving cognition Outcome: Progressing Problem: Risk for delirium Goal: Prevents and manages delirium Outcome: Progressing Problem: Risk for / Impaired Communication Goal: Establish communication to meet the patient/caregiver needs Outcome: Progressing Problem: Risk for / Impaired Mobility (Activity Intolerance) Goal: Mobility/activity is maintained at optimum level for patient Outcome: Progressing Problem: Self-Care Deficit Goal: Achieves maximum function and self-care Outcome: Progressing Problem: Risk for / Imbalanced Nutrition Goal: Maintains adequate nutritional intake Outcome: Progressing Problem: Risk for/Anxiety Goal: Demonstrates ability to cope effectively Outcome: Progressing Problem: Risk for/ impaired bladder elimination (bowel/bladder) Goal: Patient has stable or improved bladder elimination Outcome: Progressing Problem: Risk for /Impaired bowel Goal: Patient has stable or improved bowel elimination Outcome: Progressing Problem: Risk for Infection Goal: Absence of infection and prevention of transmission during hospitalization Outcome: Progressing Problem: Risk for / Impaired Skin Integrity Goal: Skin integrity is maintained or improved Outcome: Progressing Problem: Risk for altered SNS response Goal: Reduce risk and mointor for uninhibited response of sympathetic nervous system Outcome: Progressing Problem: Risk for seizure activity Goal: Absence of seizures Outcome: Progressing Goal: Remains free of injury related to seizures activity Outcome: Progressing Problem: Risk for Aspiration Goal: Patient is free of signs of aspiration and the risk of aspiration is decreased Outcome: Progressing Problem: Fall Safety: [place] Precautions Goal: Free from fall injury Outcome: Progressing Problem: Fall Huddle Goal: Free from Fall Injury 11/18/2022 1544 by Tatianna Pan RN Flowsheets (Taken 11/18/2022 1544) Was a Huddle Completed?: Yes Participating Staff: Nurse PT 11/18/2022 1317 by Tatianna Pan RN Outcome: Progressing * Plan of Care - Tatianna Pan RN - 11/18/2022 3:44 PM CDT Problem: Infection Goal: Absence of infection and prevention of transmission during hospitalization Outcome: Progressing Flowsheets (Taken 11/18/2022 1317) Absence of infection and prevention of transmission during hospitalization: Assess and monitor for signs and symptoms of infection and vital signs Monitor lab/diagnostic results Administer medications as ordered Problem: Knowledge Deficit Goal: Patient and/or family demonstrate readiness to learn Outcome: Progressing Goal: Patient and/or family verbalizes understanding of education, and/or performs desired skill Outcome: Progressing Problem: Discharge Planning Goal: Discharge to home or other facility with appropriate resources Outcome: Progressing Goal: supervisor engraving will develop a plan to decrease their burden and enhance comfort in role Outcome: Progressing Problem: Pain Goal: Patient's Pain/Discomfort is Manageable Outcome: Progressing Problem: Knowledge Deficit Goal: Patient/family/caregiver demonstrates understanding of disease process, treatment plan, medications, and discharge instructions Outcome: Progressing Problem: Potential for Compromised Skin Integrity Goal: Skin integrity is maintained or improved Outcome: Progressing Goal: Nutritional status is improving Outcome: Progressing Problem: Bowel Incontinence Goal: Perineal Skin Integrity is Maintained or Improved Outcome: Progressing Problem: Knowledge Deficit Goal: Patient and/or family demonstrate readiness to learn Outcome: Progressing Goal: Patient and/or family verbalizes understanding of condition and treatment, education, and/or performs desired skill Outcome: Progressing Problem: Altered neuro status Goal: Achieves stable or improved neurological status Outcome: Progressing Problem: Risk for / Impaired Cognition Goal: Patient has stable or improving cognition Outcome: Progressing Problem: Risk for delirium Goal: Prevents and manages delirium Outcome: Progressing Problem: Risk for / Impaired Communication Goal: Establish communication to meet the patient/caregiver needs Outcome: Progressing Problem: Risk for / Impaired Mobility (Activity Intolerance) Goal: Mobility/activity is maintained at optimum level for patient Outcome: Progressing Problem: Self-Care Deficit Goal: Achieves maximum function and self-care Outcome: Progressing Problem: Risk for / Imbalanced Nutrition Goal: Maintains adequate nutritional intake Outcome: Progressing Problem: Risk for/Anxiety Goal: Demonstrates ability to cope effectively Outcome: Progressing Problem: Risk for/ impaired bladder elimination (bowel/bladder) Goal: Patient has stable or improved bladder elimination Outcome: Progressing Problem: Risk for /Impaired bowel Goal: Patient has stable or improved bowel elimination Outcome: Progressing Problem: Risk for Infection Goal: Absence of infection and prevention of transmission during hospitalization Outcome: Progressing Problem: Risk for / Impaired Skin Integrity Goal: Skin integrity is maintained or improved Outcome: Progressing Problem: Risk for altered SNS response Goal: Reduce risk and mointor for uninhibited response of sympathetic nervous system Outcome: Progressing Problem: Risk for seizure activity Goal: Absence of seizures Outcome: Progressing Goal: Remains free of injury related to seizures activity Outcome: Progressing Problem: Risk for Aspiration Goal: Patient is free of signs of aspiration and the risk of aspiration is decreased Outcome: Progressing Problem: Fall Safety: [place] Precautions Goal: Free from fall injury Outcome: Progressing Problem: Fall Huddle Goal: Free from Fall Injury 11/18/2022 1544 by Tatianna Pan RN Flowsheets (Taken 11/18/2022 1544) Was a Huddle Completed?: Yes Participating Staff: Nurse PT 11/18/2022 1317 by Tatianna Pan RN Outcome: Progressing * [employer] Swallowing and Communication Evaluation - Oksana Edmondson ST - 11/18/2022 1:41 PM CDT Speech Language Pathologist Communication & Swallow Evaluation Patient Name: Consuelo Darby Patient Birthdate: 1980 Patient Subjective Report - disappointed (mod dysarthria, fast rate, diminished breath support for phonation) Pain Assessment Pain Context: Therapy Assessment During Treatment (11/18/221336) Pain Assessment: NRS 0-10 (11/18/221336) Pain Score: 10 - Severe Pain (11/18/221336) Pain Severity - NRS (Calculated): Severe (11/18/221336) Pain Location: Head (11/18/221336) Pre-therapy pain intervention required: Nurse notified, Patient expressed pain is tolerable/able toproceed (11/18/221336) Prior Function Level of [place]: Independent with ambulation; Independent with ADLs and function transfers (11/18/22 1002 : Roxanne Goldberg, PT) Lives With: Spouse; Family (Spouse Salo, two daughters) (11/18/22 1002 : Roxanne Goldberg, PT) 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 (11/18/22 1002 : Roxanne Goldberg, PT) Leisure: Hobbies-yes (Comment) (Pt confirms she enjoys spending time with family) (11/18/22 1002 : Roxanne Goldberg, PT) IP REHAB [employer] GEN ASSESSMENT: Pertinent history: GERD Auditory and visual status/observations: Wears glasses for distance, Wears glasses for reading, Hearing WFL and Decreased attention-left Diet at current time: NPO for Solids, No Medication PO, NPO for Liquids - No Liquids by Mouth and PEG or J-tube Oral peripheral speech mechanism: Oral apraxia (limited assessment; impaired oral-motor command following) Dentition and oral health status: Able to manage secretions, Adequate dental condition, Coating lingual surface, Compromised oral health and Oral care completed during session Respiratory Status: Room air Comprehension Deficits: Yes-no questions- abstract Expression Deficits: Further assessment indicated Cognitive Deficits: Further assessment indicated, Short term memory, Visual attention and SelectiveattentionVisual attention Dysarthria Symptoms: Articulation, Further assessment indicated, Fair intelligibility, Intelligibility- word level, Phonation (Additional detail in vocal characteristics section), Respiration andSpeech rate Vocal Characteristics: Reduced maximum phonation time, Reduced breath support, Monopitch, Reduced loudness and History of LPR or GERD Cognitive status: Apraxia, Low arousal/lethargic and Unable to follow directions/strategies Protective reflexes and vocal quality: Clear vocal quality, Volitional swallow absent and Volitional cough/throat clear absent : ice chip to lip surfaces. 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 Pharyngeal phase impairments: Delayed swallow trigger Clinical impressions: A non-instrumental assessment cannot definitely rule out aspiration, Severe severity, Pharyngeal dysphagia and Oral dysphagia Special Test and Outcome Measures: Agitated Behavior Scale (ABS), Jones Assessment of Swallowing Ability (MASA) and Oral Health Assessment Tool (OHAT) (ABS: 15, MASA: 113, OHAT: 2) Goals (in their own words): Eat again Goals Generated By:: Patient generated response with cues FIM: Comprehension Did the patient complete the activity?: Yes What is the patient's usual mode of comprehension?: Auditory How complex were the patient's conversation and the given directions?: Basic daily needs Did you help the patient?: Yes How much prompting did you give the patient?: Minimal assistance (10% to 25%) Comprehension FIM Score: 4 Expression Did the patient complete the activity?: Yes What is the patient's usual mode of expression?: Vocal How complex were the patient's ideas?: Basic needs and ideas Did you help the patient?: Yes How much prompting did you give the patient?: Moderate assistance (26% to 50%) Expression FIM Score: 3 Social Interaction Did the patient complete the activity?: Yes Did you help the patient?: No What difficulties did the patient have while completing the tasks?: More than reasonable time, Structured/modified environment Social Interaction FIM Score: 6 Problem Solving Did the patient complete the activity?: Yes How complex were the problems that the patient solved?: Routine problems only Did you help the patient?: Yes How much direction did you give the patient?: Moderate assistance (26% to 50%) Problem Solving FIM Score: 3 Memory Did the patient complete the activity?: Yes Did you help the patient?: Yes How much prompting did you give the patient?: Minimal assistance (10% to 25%) Memory FIM Score: 4 Quality Scores Admission: Hearing, Speech, and Vision Expression of Ideas and Wants: Frequent difficulty Understanding Verbal and Non-Verbal Content: Usually understands Brief Interview for Mental Status (BIMS) Repetition of Three Words (First Attempt): 3 Temporal Orientation: Year: Correct Temporal Orientation: Month: Accurate within 5 days Temporal Orientation: Day: Correct Recall: Sock : Yes, no cue required Recall: Blue : Yes, no cue required Recall: Bed : Yes, no cue required BIMS Summary Score: 15 Mcfp Goals: Status on Evaluation Goal Auditory Comprehension Level of Assistance to Meet Auditory Comprehension: Standby (less than 10%) (11/18/221545) Auditory Comprehension Details: Demonstrate auditory comprehension of complex questions, directions, and conversation to meet needs, complete tasks and interact socially with others within functionalliving environments (11/18/221545) Auditory Comprehension Expected Achievement Date: 12/02/22 (11/18/221545) Memory Level of Assistance to Meet Memory: Standby (less than 10%) (11/18/221545) Memory Details: Demonstrate functional memory skills for recall of information relating to people, routines, overall health, and safety within functional living environments (11/18/221545) Memory Expected Achievement Date: 12/02/22 (11/18/221545) Motor Speech Level of Assistance to Meet Motor Speech: Min assist (10-24%) (11/18/221545) Motor Speech Details: Demonstrate functional speech intelligibility in multiple environments through self monitoring and implementation of newly learned strategies and exercises (11/18/221545) Motor Speech Expected Achievement Date: 12/02/22 (11/18/221545) Swallowing Level of Assistance to Meet Swallowing: Standby (less than 10%) (11/18/221545) Swallowing Details: Safely consume a regular diet with all liquids with no overt signs or symptoms of aspiration or post swallow distress (11/18/221545) Swallowing Expected Achievement Date: 12/02/22 (11/18/221545) Additional Status & Goals: Goal Auditory Comprehension Level of Assistance to Meet Auditory Comprehension: Standby (less than 10%) (11/18/221545) Auditory Comprehension Details: Demonstrate auditory comprehension of complex questions, directions, and conversation to meet needs, complete tasks and interact socially with others within functionalliving environments (11/18/221545) Auditory Comprehension Expected Achievement Date: 12/02/22 (11/18/221545) Memory Level of Assistance to Meet Memory: Standby (less than 10%) (11/18/221545) Memory Details: Demonstrate functional memory skills for recall of information relating to people, routines, overall health, and safety within functional living environments (11/18/221545) Memory Expected Achievement Date: 12/02/22 (11/18/221545) Motor Speech Level of Assistance to Meet Motor Speech: Min assist (10-24%) (11/18/221545) Motor Speech Details: Demonstrate functional speech intelligibility in multiple environments through self monitoring and implementation of newly learned strategies and exercises (11/18/221545) Motor Speech Expected Achievement Date: 12/02/22 (11/18/221545) Swallowing Level of Assistance to Meet Swallowing: Standby (less than 10%) (11/18/221545) Swallowing Details: Safely consume a regular diet with all liquids with no overt signs or symptoms of aspiration or post swallow distress (11/18/221545) Swallowing Expected Achievement Date: 12/02/22 (11/18/221545) [employer] Short Term Goals: Auditory Comprehension: Level of Assistance to Meet Auditory Comprehension: Standby (less than 10%) Details: Answer complex yes/no questions with 90% acc Expected Achievement Date: 11/25/2022 Goal Status: Established Memory: Level of Assistance to Meet Memory: Min assist (10-24%) Details: Recall 3-4 events from PT and OT sessions Expected Achievement Date: 11/25/2022 Goal Status: Established Additional Cognition: Level of Assistance to Meet Additional Cognition: Min assist (10-24%) Details: Complete visual attention tasks with 80% acc Expected Achievement Date: 11/25/2022 Goal Status: Established Motor Speech: Level of Assistance to Meet Motor Speech: Mod assist (25-49%) Details: Increase maximum phonation time to 10 seconds Expected Achievement Date: 11/25/2022 Goal Status: Established Swallowing: Level of Assistance to Meet Swallowing: Standby (less than 10%) Details: Improve OHAT score to zero, initiate SMWP as appropriate Expected Achievement Date: 11/25/2022 Goal Status: Established Other STG 1: Focus: Motor Speech Level of Assistance to Meet Other STG 1: Independent Details: State three speech intelligibility strategies Expected Achievement Date: 11/25/2022 Goal Status: Established Other STG 2: Focus: Motor Speech Level of Assistance to Meet Other STG 2: Min assist (10-24%) Details: Demonstrate use of strategies at the phrase level Expected Achievement Date: 11/25/2022 Goal Status: Established Other STG 3: Focus: Swallowing Level of Assistance to Meet Other STG 3: Standby (less than 10%) Details: Tolerate PO trials ice chips, thickened liquids with <10% overt clinical signs/symptomsaspiration or post-swallow distress Expected Achievement Date: 11/25/2022 Goal Status: Established Evaluation Summary: Ms. Darby is a 42 year-old female referred to speech therapy for evaluation andtreatment following recent hospitalization with a diagnosis of stroke. Past medical history is significant for abdominal pain right upper quadrant, hemiplegic migraine, GERD, HTN. Prior to referral for a rehabilitation admission, patient did not require assistance for household ambulation, community level ambulation or self-care activities. Precautions include: fall, latex Ms. Darby's current functional status is as follows: DIET: NPO for solids, NPO for liquids, medication via PEG. Oral mech exam significant for noted severe dried lingual secretions when pt yawned during completion of OHAT. Pt with impaired oral-motor command following despite model, verbal cues for adequate oral care via toothette moistened in ice water. Pt managing secretions with occasional reflexive swallow. Pt with non-preference for upright positioning for PO trials, PO trials deferred. Suction not set up at bedside, suction toothbrush not set up at bedside; nursing informed and aware. Nursing informed and aware of pt need for frequent andaggressive oral care due to compromised oral health; oral care recommendations written on pink swallow guideline sheet in pt room; oral care orders entered for pt in [facility]. Recommend continue NPO for solids, NPO for liquids, medication via PEG. Pt awaiting CT scan due to head pain level 10. SWALLOWING STRATEGIES: N/A due to NPO status COMPREHENSION: Minimal Assistance - able to answer simple and complex Y/N questions, able to follow1-3 step and complex auditory commands; impaired following or oral-motor commands due to oral apraxia; limited assessment due to pt fluctuating alertness; pt able to tell clock time at a distance wearing glasses; pt able to dial landline phone wearing glasses; pt unable to read information on whiteboard in room, suspect left-sided inattention; LAST-b Language Screening Test Receptive Index: 5/7;suspect left upper quandrant inattention due to pt inability to name two pictured objects in that region of the page EXPRESSION: Moderate Assistance - Mod-severe dysarthria with impaired breath support for speech, fast rate of speech, impaired oral-motor ROM impacting articulation; further assessment warranted; LAST-b Language Screening Test Expressive Index: 8/8; suspect lower left quadrant left-sided inattention as pt named picture of knife as as paper clip SOCIAL INTERACTION: Modified Independent - cooperative, flat affect, [place]; intact sense of humor, when therapist complimented pt on pt's 's dedication to her situation, pt replied: You have no idea; structured environment PROBLEM SOLVING: Moderate Assistance - able to locate call light and identify red nurse button independently; stated two solutions to a basic functional problem solving situation; stated one solutionto a novel basic functional problem solving situation; stated one solution to a hypothetical basic problem solving situation; able to tell analog clock time with glasses; impaired location of information on pt white board in room, suspect left-sided inattention; able to dial landline room phone with supervisory task initiation cues MEMORY: Minimal Assistance - recalled 3/3 items independently following 5 minute delay, recalled 3/3 items independently on BIMs w/cues; recalled one task completed during OT eval, recalled one task completed during PT eval; A&Ox4; limited assessment due to pt dysarthria and impaired breath support for speech to provide therapist with full and accurate accounting of events for assessment of daily recall of events The patient is unable to state stroke risk factors because the patient has not been educated on this information yet. Swallowing: Pt clinically presents with delayed oral transit and oral clearance, delayed swallow initiation, restricted hyo-laryngeal anterior excursion. Pt unable to lick lips after therapist moistened lips with ice chip x2. Pt performed saliva swallow x1 following oral care with toothette to tooth surfaces; pt with impaired oral-motor ROM and impaired oral-motor command following for therapist to address severe tongue coat/dried secretion visible when pt yawned during evalation. Continue NPO for solids, NPO for liquids, medication via TF, frequent and aggressive oral care using suction toothbrush. Speech and Integrative Language: Pt presents with deficits in areas of breath support for speech, speech intelligibility, auditory comprehension, visual attention, and memory for daily events. Pt wears glasses for reading and distance. These impairments limit Mr. Darby's ability to safely consume a regular diet, participate in routine conversations with caregivers, and participate in daily routines safely and independently. Ms. Darby demonstrates good potential for improvement and would benefit from intensive speech therapy services 45-90 minutes daily in an individualized and/or group setting, 5 days/week, focusing on increased safety and independence. Plan of care to include: compensatory strategy training, cognitive and communicative retraining, and patient/family training and education. Recommended diet: NPO for Solids, NPO for Liquids - No Liquids by Mouth, No Medication PO and Non-oral means of nutrition and hydration (Comment) Compensatory swallowing techniques recommended: N/A due to NPO status Level of supervision at meals recommended: N/A due to NPO status Therapy Recommendations: Speech therapy services recommended Treatment plan discussed with: Patient (pt ) Problem List:: Dysarthria, Cognitive Communication Disorder, Apraxia, Pharyngeal Dysphagia and OralDysphagia [employer] to Provide the Following Dysphagia Services:: Therapeutic feeding trials, Oral motor exercises,Intensive Oral Care Intervention(s), Ongoing patient/caregiver training and Train in compensatory swallowing strategies [employer] to Provide the Following Cognitive, Language, Speech Services:: Basic cognitive communication skills training/strategies, Articulatory precision training/strategies, Auditory comprehension skills, Functional communication skills training/strategies, Ongoing patient/caregiver training, IntensiveOral Care Intervention(s), Speech strategies for intelligibility, Voice production/exercises and Speech motor planning/sequence training/strategies Frequency:: 45-90 minutes over a 7-consecutive day period provided in an alternative schedule to equal a total of 15 hours for all therapy disciplines Duration (# of Days): 28 Duration Expiration Date: 12/15/2022 Therapist that Will Oversee Plan of Care: Peyton Hampton Is patient a candidate for Water Protocol? No Why is the patient not a candidate for water protocol? Poor oral health and Unstable medical condition Pain Evaluation and Follow-up Pain Reassessment: 4 (11/18/22 1435) Nursing notified of patient's pain assessment: Primary Nurse (11/18/22 485) Therapy Minutes Comm Evaluation (ST) Time In : 1345 Time Out: 1415 Time calculation (min): 30 min CBSE Evaluation (ST) Time In : 1415 Time Out: 1430 Time calculation (min): [address] 11/18/2022 * Plan of Care - Tatianna Pan RN - 11/18/2022 1:17 PM CDT Problem: Infection Goal: Absence of infection and prevention of transmission during hospitalization Outcome: Progressing Flowsheets (Taken 11/18/2022 1317) Absence of infection and prevention of transmission during hospitalization: Assess and monitor for signs and symptoms of infection and vital signs Monitor lab/diagnostic results Administer medications as ordered Problem: Knowledge Deficit Goal: Patient and/or family demonstrate readiness to learn Outcome: Progressing Goal: Patient and/or family verbalizes understanding of education, and/or performs desired skill Outcome: Progressing Problem: Discharge Planning Goal: Discharge to home or other facility with appropriate resources Outcome: Progressing Goal: supervisor engraving will develop a plan to decrease their burden and enhance comfort in role Outcome: Progressing Problem: Pain Goal: Patient's Pain/Discomfort is Manageable Outcome: Progressing Problem: Knowledge Deficit Goal: Patient/family/caregiver demonstrates understanding of disease process, treatment plan, medications, and discharge instructions Outcome: Progressing Problem: Potential for Compromised Skin Integrity Goal: Skin integrity is maintained or improved Outcome: Progressing Goal: Nutritional status is improving Outcome: Progressing Problem: Bowel Incontinence Goal: Perineal Skin Integrity is Maintained or Improved Outcome: Progressing Problem: Knowledge Deficit Goal: Patient and/or family demonstrate readiness to learn Outcome: Progressing Goal: Patient and/or family verbalizes understanding of condition and treatment, education, and/or performs desired skill Outcome: Progressing Problem: Altered neuro status Goal: Achieves stable or improved neurological status Outcome: Progressing Problem: Risk for / Impaired Cognition Goal: Patient has stable or improving cognition Outcome: Progressing Problem: Risk for delirium Goal: Prevents and manages delirium Outcome: Progressing Problem: Risk for / Impaired Communication Goal: Establish communication to meet the patient/caregiver needs Outcome: Progressing Problem: Risk for / Impaired Mobility (Activity Intolerance) Goal: Mobility/activity is maintained at optimum level for patient Outcome: Progressing Problem: Self-Care Deficit Goal: Achieves maximum function and self-care Outcome: Progressing Problem: Risk for / Imbalanced Nutrition Goal: Maintains adequate nutritional intake Outcome: Progressing Problem: Risk for/Anxiety Goal: Demonstrates ability to cope effectively Outcome: Progressing Problem: Risk for/ impaired bladder elimination (bowel/bladder) Goal: Patient has stable or improved bladder elimination Outcome: Progressing Problem: Risk for /Impaired bowel Goal: Patient has stable or improved bowel elimination Outcome: Progressing Problem: Risk for Infection Goal: Absence of infection and prevention of transmission during hospitalization Outcome: Progressing Problem: Risk for / Impaired Skin Integrity Goal: Skin integrity is maintained or improved Outcome: Progressing Problem: Risk for altered SNS response Goal: Reduce risk and mointor for uninhibited response of sympathetic nervous system Outcome: Progressing Problem: Risk for seizure activity Goal: Absence of seizures Outcome: Progressing Goal: Remains free of injury related to seizures activity Outcome: Progressing Problem: Risk for Aspiration Goal: Patient is free of signs of aspiration and the risk of aspiration is decreased Outcome: Progressing Problem: Fall Safety: [place] Precautions Goal: Free from fall injury Outcome: Progressing Problem: Fall Huddle Goal: Free from Fall Injury Outcome: Progressing * PT Treatment Note - Roxanne Goldberg PT - 11/18/2022 1:05 PM CDT PT Treatment Patient Name: Consuelo Darby Patient Birthdate: 1980 Patient Subjective Report - Patient agreeable to trying to get up to the wheelchair via little lift for speech therapy. Pain Assessment Pain Context: Therapy Assessment Prior to Treatment (11/18/221304) Pain Assessment: NRS 0-10 (11/18/221304) Pain Score: 6 - Moderate Pain (11/18/221304) Pain Severity - NRS (Calculated): Moderate (11/18/221304) Pain Location: Head (11/18/221304) Pain Orientation: Right (11/18/22958) Pain Descriptors: Aching (11/18/22958) Functional Impact: Transfers (11/18/22958) Pre-therapy pain intervention required: Patient expressed pain is tolerable/able to proceed, Nurse notified (Nurse present during part of session) (09/09/23 1305) PT assisted with donning helmet in bed to prepare for transfer. Patient reports discomfort with helmet and increased discomfort with increased upright position when spouse provided assistance to partial long sitting in bed. Patient reports pain increase to 9/10 in her head. Nurse present and aware.Removed helmet and returned to supine with head of bed elevated approx 30 degrees. Once pain had decreased reattempted partial long sitting with spouse/PT assisting to determine if change in positionor helmet were contributing factors. Patient reports increase in pain with position change, but less without helmet. Due to significant increase in pain, unable to attempt transfer. Discussed with nurse. Patient repositioned in bed. PT called Dr. Bradley to inform of pain with position change/helmetand limitation in PT. PT Treatment Outcomes:: Patient tolerated session poorly (pain in head with helmet and position change limit participation) PT Summary:: Patient was seen for additional session in afternoon to attempt little transfer to [id number] wheelchair to assess wheelchair fit. Patient unable to attempt transfer due to significantpain in her head wearing her helmet and with position changes. PT notified nurse who was present and Dr. Bradley. PT Summary Plan of Care: Continue with current plan of care Pain Evaluation and Follow-up Response to Therapy Interventions: Other (comment) (Increase in pain with wearing helmet.) (11/18/22 1320) Pain Reassessment: 9 (11/18/22 1320) Nursing notified of patient's pain assessment: Primary Nurse (11/18/22 1320) Therapy Minutes Individual Concurrent Co-Treat Individual (PT) Time In : 1305 Time Out: 1320 Total Time with Patient (Min): 15 min ROXANNE GOLDBERG, PT 11/18/2022 * PT Initial Evaluation - Roxanne Goldberg PT - 11/18/2022 9:50 AM CDT Physical Therapy Evaluation Patient Name: Consuelo Darby Patient Birthdate: 1980 Pain Assessment Pain Context: Therapy Assessment Prior to Treatment (11/18/22958) Pain Assessment: NRS 0-10 (11/18/22958) Pain Score: 7 - Severe Pain (head 7/10, shoulder 6/10) (11/18/22958) Pain Severity - NRS (Calculated): Severe (11/18/22958) Pain Location: Head, Shoulder (11/18/22958) Pain Orientation: Right (11/18/22958) Pain Descriptors: Aching (11/18/22958) Functional Impact: Transfers (11/18/22958) Pre-therapy pain intervention required: Nurse notified (11/18/22958) Vital Signs Pulse: 101 (11/18/221029) BP: 125/84 (11/18/221029) MAP (mmHg): 97.67 (11/18/221029) BP Location: Right arm (11/18/221029) BP Method: Automatic (11/18/221029) Patient Position: Lying (11/18/221029) Oxygen Context: Resting (11/18/221029) SpO2: 95 % (11/18/221029) O2 Device: None (Room air) (11/18/221029) Home Living Type of Home: House (11/18/221001) # steps into the home: 8 (Planning for ramp) (11/18/221001) Home Layout: One level (11/18/221001) Bathroom Shower/Tub: Walk-in shower (One small curb to get in/out) (11/18/221001) Bathroom Equipment: Built-in shower seat (5 ft by 1 ft bench within shower) (11/18/221001) Bathroom Accessibility: Walk-in Shower (11/18/221001) Prior Function Level of [place]: Independent with ambulation; Independent with ADLs and function transfers (11/18/22 1002 : Roxanne Goldberg, PT) Lives With: Spouse; Family (Spouse Salo, two daughters) (11/18/22 1002 : Roxanne Goldberg, PT) 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 Head hurting from helmet. OT reports it will be best to get her back into bed. Patient presents with sweating and shaking of right leg. PT provides assistance with little lift to transition back to bed. 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 Home environment: Spouse shows picture of shower in home, reports about a 6 inch threshold into shower and 2 inch threshold out of shower. Has a built in [id number] bench within shower. Says doorway to shower is 28 inches wide. Spouse also says he is planning to build a ramp into the home due to presence of 8 steps currently. Strength tested in supine RLE: Ankle DF/PF WFL, hip/knee extension combined movement WFL LLE: No active movement/muscle activation detected through the LLE. See OT note for strength assessment of UE. Tone: LLE: Modified sirisha scale: 3 for ankle plantarflexors, resistance to passive motion, clonus withfast movement and end range passive motion Resistance to passive movement into supine left hip/knee flexion. Patient reports it feels good to have leg moved. Light Touch: Severe deficits in the LLE (Unable to detect touch on LLE and LUE) RLE Proprioception: Not tested LLE Proprioception: Not tested Coordination: Not tested Overall Cognitive Status: Within Functional Limits A&Ox4, patient is lethargic and requires tactile and verbal stimulation to awaken at times during sesison. Wheelchair Type: [id number]-[id number] (Patient unable to transfer to wheelchair in PT session due to pain in her head. Unable to assess proper fit of wheelchair) Wheelchair Size: 20 Patient was instructed in wheelchair safety.: No Wheelchair Cushion Type: Foam Skin Issues Narrative: See RN and wound care assessment for skin assessment. Patient's and/or Caregiver's Goals: Goals (in their own words): Spouse reports goal that she will be able to do as much as she is able to do. 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 He says they have a big support system but not sure how much will be able to provide care. Patient unable to provide goal at time of eval due tolethargy. Goals Generated By:: Caregiver generated a response Mobility Assessment: BED MOBILITY: Sit to/from supine: unsafe to attempt due to pain. Rolling with maximal assist of two people TRANSFERS Sit to/from stand: unsafe to attempt at this time due to pain and mobility limitations Stand pivot: unsafe to attempt at this time due to pain and mobility limitations Car transfer: unsafe to attempt at this time due to pain and mobility limitations GAIT Unsafe to attempt ambulation 10, 50',150' and 10' on compliant surface due to pain and mobility limitations Retrieves object from floor in standing: Unsafe to retrieve object from due to pain and mobility limitations STAIRS Acscends/descends 1,4, 12 steps unsafe to attempt at this time due to pain and mobility limitations WHEELCHAIR MOBILITY Unsafe to attempt wheelchair mobility due to pain and unable to tolerate transfer out of bed. OUTCOME MEASURES: AGITATED BEHAVIOR SCALE 17 POSTURAL ASSESSMENT OF STROKE 2 (Unable to attempt tasks other than rolling due to pain. 10 METER WALK TEST unsafe to attempt At end of session, attempted to position patient for transfer to [id number] wheelchair via [place]. With two person assist, patient able to roll for placing sling. However, due to significant pain in her head due to the helmet, unable to attempt transfer. Patient repositioned in bed with nursing assistance with sling removed. Car Transfer Reason if not Attempted: Safety concerns Car Transfer - CARE Score: 88 Walk 10 Feet Reason if not Attempted: Safety concerns Walk 10 Feet - CARE Score: 88 Walk 50 Feet with Two Turns Reason if not Attempted: Safety concerns Walk 50 Feet with Two Turns - CARE Score: 88 Walk 150 Feet Reason if not Attempted: Safety concerns Walk 150 Feet - CARE Score: 88 Walking 10 Feet on Uneven Surfaces Reason if not Attempted: Safety concerns Walking 10 Feet on Uneven Surfaces - CARE Score: 88 1 Step (Curb) Reason if not Attempted: Safety concerns 1 Step (Curb) - CARE Score: 88 4 Steps Reason if not Attempted: Safety concerns 4 Steps - CARE Score: 88 12 Steps Reason if not Attempted: Safety concerns 12 Steps - CARE Score: 88 Picking Up Object Reason if not Attempted: Safety concerns Picking Up Object - CARE Score: 88 Wheel 50 Feet with Two Turns Reason if not Attempted: Safety concerns Wheel 50 Feet with Two Turns - CARE Score: 88 Type of Wheelchair/Scooter: Manual Wheel 150 Feet Reason if not Attempted: Safety concerns Wheel 150 Feet - CARE Score: 88 Type of Wheelchair/Scooter: Manual CARE Score Fields: 6: Independent. [place] provides no assistance with tasks. A device may or may not have been used. 5: Set-up or clean-up assistance. [place] sets up or cleans up, but does not assist with tasks. [place] may have assisted prior to or following the activity. 4: Supervision or touching assistance. [place] provides verbal cues or touching/steadying or contactguard assistance. Assistance may be provided throughout the activity or intermittently. 3: Partial/moderate assistance. [place] does less than half the effort. [place] lifts, holds, or supports trunk or limbs, but provides less than half the effort. 2: Substantial/maximal assistance. [place] does more than half the effort. [place] lifts or holds trunk or limbs, and provides more than half the effort. 1: Dependent. [place] does all of the effort, or the assistance of two or more helpers is required for the patient to complete the activity. -: Inconsistent or incomplete documentation Activity not attempted values: 7: Patient refused 9: Not applicable - Not attempted and the patient did not perform this activity prior to the current illness, exacerbation, or injury. 10: Not attempted due to environmental limitations (e.g., lack of equipment, weather constraints) 88: Not attempted due to medical condition or safety concerns [place] Goals: Status on Admission Goal Car Transfer - CARE Score: 88 (11/18/22 100) Car Transfer LTG: Partial/moderate assistance (Patient will complete car transfer with moderate assist to be able to transport in a personal vehicle.) (11/18/22 1057) Walk 10 Feet - CARE Score: 88 (11/18/22 100) Walk 50 Feet with Two Turns - CARE Score: 88 (11/18/22 100) Walk 150 Feet - CARE Score: 88 (11/18/22 100) Walking 10 Feet on Uneven Surfaces - CARE Score: 88 (11/18/22 100) 1 Step (Curb) - CARE Score: 88 (11/18/22 100) 4 Steps - CARE Score: 88 (11/18/22 1006) 12 Steps - CARE Score: 88 (11/18/22 100) Picking Up Object - CARE Score: 88 (11/18/22 1006) Wheel 50 Feet with Two Turns - CARE Score: 88 (11/18/22 1006) Wheel 50 Feet with Two Turns LTG: Supervision or touching assistance (Patient will be able to wheel 50 ft including navigating the environment with touching assistance.) (11/18/22 1057) Wheel 150 Feet - CARE Score: 88 (11/18/22 1006) Additional Status & Goals: N/A PT Other [place] Goals Flowsheet Row Most Recent Value Other PT [place] Goals Other Goals - Mcfp [place] 1, Mcfp 2 Filed on: 11/18/2022 105 Other Mcfp Goal 1 Patient will complete transfers with moderate assist of one person. Filed on: 11/18/2022 105 Other Mcfp Goal 1 Status Established Filed on: 11/18/2022 105 Other Mcfp Goal 2 Patient will complete bed mobility including rolling and supine<> sit transitions with minimal assistance. Filed on: 11/18/2022 105 Other [place] Goal 2 Status Established Filed on: 11/18/2022 105 Expected Achievement Date 12/15/22 Filed on: 11/18/2022 105 PT Short Term Goal 1: Focus: Other Details: Patient will be able to tolerate being out of bed and seated in her wheelchair for increased engagement within therapy session. Expected Achievement Date: 11/25/2022 Goal Status: Established PT Short Term Goal 2: Focus: Other (Bed mobility) Level of Assistance to Meet Short Term Goal: Physical assistance 75% or more Details: Patient will complete rolling in bed with maximal assist of one. Expected Achievement Date: 11/25/2022 Status: Established PT Short Term Goal 3: Level of Assistance to Meet Short Term Goal: Total assistance Details: Patient will be able to complete sit <> supine transitions with two person moderate assist. Status: Established Evaluation Summary: Consuelo Darby presents to rehab due to : Acute R MCA stroke 10/19/22 s/p TNK and tenecteplase and thrombectomy . She had a hemicraniectomy on 10/20/22 due to cerebral edema and midline shift. While in the hospital, she had right iliac and common femoral artery occlusion with sub sequent right common femoral thrombectomy and patch angioplasty 10/30/22. Her current deficits include left hemiplegia and left sided sensory deficits to light touch. Her PT assessment was limited dueto severe pain in her head. Nurse notified and present at end of session. Precautions: Strict NPO, must wear helmet for transfers and when out of bed. 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 Unable to assess further mobility due to severe pain in her headwith the helment. Potential for therapy: Fair to good. Patient has a supportive spouse and appears motivated. Problem List: Decreased coordination, Decreased endurance, Decreased mobility, Decreased postural alignment in sitting/standing, Decreased range of motion, Decreased strength, Hemisensory Deficits, Impaired ambulation ability, Impaired bed mobility, Impaired elevation ability, Impaired sensation, Impaired tone and Pain PT to Provide the Following Services: Aerobic/Endurance conditioning, Adaptive equipment/DME prescription and application, Balance/proprioceptive training, Body Weight Support System, Education - patient/family, Fall prevention, Gait training, Home Exercise Program (HEP) prescription, Neuromuscularre-education, Orthotic/prosthetic prescription/application, Sensory integration, Therapeutic activities, Therapeutic exercise, Therapeutic taping and Wheelchair safety and mobility training Frequency of PT: 45-90 minutes 5 out of 7 days Duration (# of Days): 30 Duration Expiration Date: 12/17/2022 Pain Evaluation and Follow-up Response to Therapy Interventions: Other (comment) (Increased pain with wearing helmet. Helmet removed at end of session as patient was in bed.) (11/18/22 1057) Pain Reassessment: 9 (11/18/22 1057) Nursing notified of patient's pain assessment: Primary Nurse (11/18/22 105) Therapy Minutes Time In : 0950 Time Out: 1057 Time calculation (min): 67 min ROXANNE GOLDBERG, PT 11/18/2022 * OT Initial Evaluation - Roland Avendano OT - 11/18/2022 8:15 AM CDT Occupational Therapy Evaluation Patient Name: Consuelo Darby Patient Birthdate: 1980 Pain Assessment Pain Context: Therapy Assessment Prior to Treatment (11/18/221611) Pain Assessment: NRS 0-10 (11/18/221611) Pain Score: 0 - No pain (11/18/221611) Pain Severity - NRS (Calculated): No pain (11/18/221611) Pain Interventions Education Provided: Patient (11/18/221611) Non-Pharmacologic Pain Interventions: Distractions, Exercise/Activity, Position/Reposition (11/18/221611) Home Living Type of Home: House (11/18/22819) # steps into the home: 8 (11/18/22819) Home Layout: One level (11/18/22819) Bathroom Accessibility: Walk-in Shower (11/18/22819) DME Currently Owned: (none) (11/18/22819) Prior Function Level of [place]: Independent with ambulation; Independent with ADLs and function transfers (11/18/22 1002 : Roxanne Goldberg, PT) Lives With: Spouse; Family (Spouse Salo, two daughters) (11/18/22 1002 : Roxanne Goldberg, PT) 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 Previously Used Home Health Aide: No Drove Vehicle Prior to Admission: Yes Required assistance for mobility?: No SIGNIFICANT HABITS AND ROUTINES: Significant Habits and Routines: Roles: Mother and Spouse Interests: spending time with family/children. Previous Living Status: Lives with others (Pt lives with her Salo and children. Her mother lives next door. She lives in a one story home with 8 JAYNE. Her children are 15 and 6. She uses a walkin shower at home.) ADL Assessment:: Eating Reason if not Attempted: Medical concerns Eating - CARE Score: 88 Oral Hygiene Assistance Needed: Physical assistance Physical Assistance Level: 51%-75% Oral Hygiene - CARE Score: 2 Toileting Hygiene Assistance Needed: Physical assistance Physical Assistance Level: Total assistance Toileting Hygiene - CARE Score: 1 Shower/Bathe Self Assistance Needed: Physical assistance Physical Assistance Level: Total assistance Shower/Bathe Self - CARE Score: 1 Upper Body Dressing Assistance Needed: Physical assistance Physical Assistance Level: Total assistance Upper Body Dressing - CARE Score: 1 Lower Body Dressing Assistance Needed: Physical assistance Physical Assistance Level: Total assistance Lower Body Dressing - CARE Score: 1 Putting On/Taking Off Footwear Assistance Needed: Physical assistance Physical Assistance Level: Total assistance Putting On/Taking Off Footwear - CARE Score: 1 Roll Left and Right Assistance Needed: Physical assistance Physical Assistance Level: Total assistance Roll Left and Right - CARE Score: 1 Sit to Lying Reason if not Attempted: Safety concerns Sit to Lying - CARE Score: 88 Lying to Sitting on Side of Bed Reason if not Attempted: Safety concerns Lying to Sitting on Side of Bed - CARE Score: 88 Sit to Stand Reason if not Attempted: Safety concerns Sit to Stand - CARE Score: 88 Chair/Unn-vb-Mddsn Transfer Assistance Needed: Physical assistance Physical Assistance Level: Total assistance Chair/Dsa-do-Puwcp Transfer - CARE Score: 1 Toilet Transfer Reason if not Attempted: Safety concerns Toilet Transfer - CARE Score: 88 PERFORMANCE SKILLS ASSESSMENT: Performance Skills Assessment: Behavioral/Affective Observations: Goal directed and Perserveration (perseverated on headache pain especially when out of bed and wearing helmet) Cognitive Skills: Oriented to personal circumstance, Able to follow 1 step commands, Impaired probem solving, Impaired memory, Distractible and Perservation noted Functional Endurance: Functional Endurance: Impaired MUSCULOSKELETAL STATUS: Coordination: Impaired (R UE coordination appears to be WFL. L UE coordination is absent--not able to use L UE functionally.) Film Booker Strength: R UE teacher's aide strength appears to be WFL. L UE teacher's aide strength: absent. Right Film Booker Strength: TBA Left Film Booker Strength: 0 RUE Assessment-ROM and MMT: Within Functional Limits (R UE AROM and strength appear to be WFL) UE Edema Location: No edema present LUE Assessment-ROM and MMT: 0/5. Trace active movement noted in supination/pronation and fingers. UE Edema Location: No edema present Right Upper Extremity: WNL Left Upper Extremity: Tone Tone: Hypertonic/Spasticity Tremors: No Tremors No Visual/Perceptual Skills: Visual/Perceptual Skills: Vision corrected with lenses Perform In-Depth Visual Assessment?: No (NT b/c of time constraints; she presents with left inattention and neglect; possible left field cut) Skin Issues Narrative: No skin issues noted. Pt has an IV on L arm. Pt has g-tube--on continuous tube feeding. Pt requires total assist for rolling. She is dependent for pressure relief when sitting in w/c. Patient's and/or Caregiver's Goals: Communication Goals (in their own words): Pt would like to return to work when able. Mother says the goal is for her to return home with the help of family. Pt reports I want to take a shower! Goals Generated By:: Caregiver generated response (goals reported by pt's mother) CARE Score Fields: 6: Independent. [place] provides no assistance with tasks. A device may or may not have been used. 5: Set-up or clean-up assistance. [place] sets up or cleans up, but does not assist with tasks. [place] may have assisted prior to or following the activity. 4: Supervision or touching assistance. [place] provides verbal cues or touching/steadying or contactguard assistance. Assistance may be provided throughout the activity or intermittently. 3: Partial/moderate assistance. [place] does less than half the effort. [place] lifts, holds, or supports trunk or limbs, but provides less than half the effort. 2: Substantial/maximal assistance. [place] does more than half the effort. [place] lifts or holds trunk or limbs, and provides more than half the effort. 1: Dependent. [place] does all of the effort, or the assistance of two or more helpers is required for the patient to complete the activity. -: Inconsistent or incomplete documentation Activity not attempted values: 7: Patient refused 9: Not applicable - Not attempted and the patient did not perform this activity prior to the current illness, exacerbation, or injury. 10: Not attempted due to environmental limitations (e.g., lack of equipment, weather constraints) 88: Not attempted due to medical condition or safety concerns [place] Goals: Status on Admission Goal Eating - CARE Score: 88 (11/18/22 1252) Eating LTG: Supervision or touching assistance (11/18/22 1257) Oral Hygiene - CARE Score: 2 (11/18/22 1252) Oral Hygiene LTG: Supervision or touching assistance (11/18/22 1257) Toileting Hygiene - CARE Score: 1 (11/18/22 1252) Toileting Hygiene LTG: Partial/moderate assistance (11/18/22 1257) Shower/Bathe Self - CARE Score: 1 (11/18/22 1252) Shower/Bathe Self LTG: Partial/moderate assistance (11/18/22 1257) Upper Body Dressing - CARE Score: 1 (11/18/22 1252) Upper Body Dressing LTG: Partial/moderate assistance (11/18/22 1257) Lower Body Dressing - CARE Score: 1 (11/18/22 1252) Lower Body Dressing LTG: Partial/moderate assistance (11/18/22 1257) Putting On/Taking Off Footwear - CARE Score: 1 (11/18/22 1252) Putting On/Taking Off Footwear LTG: Partial/moderate assistance (11/18/22 1257) Roll Left and Right - CARE Score: 1 (11/18/22 1252) Sit to Lying - CARE Score: 88 (11/18/22 1252) Lying to Sitting on Side of Bed - CARE Score: 88 (11/18/22 1252) Sit to Stand - CARE Score: 88 (11/18/22 1252) Chair/Xzm-kc-Azlfm Transfer - CARE Score: 1 (11/18/22 1252) Chair/Aai-cy-Cjldl Transfer LTG: Partial/moderate assistance (11/18/22 1257) Toilet Transfer - CARE Score: 88 (11/18/22 1252) Toilet Transfer LTG: Partial/moderate assistance (11/18/22 1257) Additional Status & Goals: N/A OT Short Term Goal 1: Focus: Toileting Hygiene Level of Assistance to Meet Short Term Goal: Physical assistance 50%-74% Expected Achievement Date: 11/25/2022 Goal Status: Established OT Short Term Goal 2: Focus: Shower/Bathe Level of Assistance to Meet Short Term Goal: Physical assistance 50%-74% Expected Achievement Date: 11/24/2022 Goal Status: Established OT Short Term Goal 3: Focus: Upper Body Dressing Level of Assistance to Meet Short Term Goal: Physical assistance 50%-74% Expected Achievement Date: 11/25/2022 Goal Status: Established OT Short Term Goal 4: Focus: Lower Body Dressing Level of Assistance to Meet Short Term Goal: Physical assistance 50%-74% Expected Achievement Date: 11/25/2022 Goal Status: Established OT Short Term Goal 5: Focus: Chair/Bed Transfer Level of Assistance to Meet Short Term Goal: Physical assistance 50%-74% Expected Achievement Date: 11/24/2022 Goal Status: Established OT Short Term Goal 6: Focus: Toilet Transfer Level of Assistance to Meet Short Term Goal: Physical assistance 50%-74% Expected Achievement Date: 11/24/2022 Goal Status: Established Evaluation Summary:: Ms Darby is a 42 year old woman with diagnosis of CVA. She had a thrombectomy on 10/19/22, complicated by cerebral edema and midline shift, s/p hemicraniectomy on 10/20/22. She hasPMH of Gerd, HTN, and hemiplegic migraine. Precautions: full code, strict NPO (continuous tube feeding), helmet on when out of bed, fall, aspiration, dysphagia, pressure relief schedule Ms Darby's current functional status is as follows: EATING: NPO, dependent for continuous tube feeding (g-tube). 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 Speech therapist reports that she plans to make sure suction is available. TOILETING: dependent, assist needed for all aspects BATHING: dependent, assist needed for all aspects; task modified to bed level for safety, two person assist needed for rolling to complete LB bathing UB DRESSING: dependent, assist for all aspects when seated in w/c LB DRESSING: dependent, assist for all aspects, done bed level for safety; two person assist neededfor rolling completely during task PUTTING ON/TAKING OFF FOOTWEAR: dependent ROLL LEFT AND RIGHT: dependent SIT TO LYING: NT b/c of safety concerns with balance LYING TO SITTING: NT b/c of safety concerns with balance SIT TO STAND: NT b/c of safety concerns BED TO CHAIR TRANSFER: dependent with use of little lift--2 person assist needed TOILET TRANSFER: NT b/c of safety concerns with balance. Ms Darby was transferred to standard w/c with use of little lift and two person assist. She was dependent for positioning in w/c. She presents with poor sitting balance in w/c and tended to shift her hips forward in chair. She complained of headache and being bothered by the helmet and requested to be returned to bed after being out of bed for about 20 minutes. (Family reports that she hasn't wornthe helmet much and hasn't been out of bed much). She was returned to bed with use of little lift with assistance of 3 staff members. She requested removal of helmet once returned to bed. Trial of tilt in space wheelchair recommended for when she is transferred out of bed next. Problem List:: Visual deficits, Decreased functional endurance, Decreased functional status in ADL's, Impaired balance, Mobility, Decreased transfer status, Decreased upper extremity strength, Decreased upper body strength, Impaired muscle tone, Decreased upper extremity range of motion, Decreased fine motor coordination, Impaired gradation of grasp, Impaired hand eye coordination, Impaired visual and/or perceptual skills and Impaired cognitive skills OT to Provide the Following Services: ADL and Transfer Training, Neuromusculature Re-education, UE Therex, Visual/Perceptual Skills Training, Cognitive Retraining, Visual/Perceptual Compensatory education, Balance Training, Coordination Training, Functional Endurance Training, Energy Conservation and Activity Modifications, Adaptive Equipment/DME Education and Positioning Frequency:: 45-90 minutes 5 out of 7 days Duration (# of Days): 28 Duration Expiration Date: 12/16/2022 Pain Evaluation and Follow-up Pain Reassessment: 8 (pt reported headache pain and discomfort caused by helmet.) (11/18/22 161) Nursing notified of patient's pain assessment: Primary Nurse (11/18/22 161) Therapy Minutes Time In : 0815 Time Out: 0945 Time calculation (min): 90 min ROLAND AVENDANO OT 11/18/2022 * Plan of Care - Awilda Gonsalves RN - 11/18/2022 3:02 AM CDT Problem: Pain Goal: Patient's Pain/Discomfort is Manageable Outcome: Progressing Flowsheets (Taken 11/18/2022 0301) Patient's Pain/Discomfort is Manageable: Assess pain level Assess pain using FLACC, PAINAD or [place] Include patient/family/caregiver in decisions related to pain management Offer non-pharmocological pain management interventions Provide Emotional/Spiritual Support Pain Consult Administer medications as ordered Reassess patient's response and tolerance to discomfort * Plan of Care - Katelyn West RN - 11/17/2022 5:45 PM CDT Problem: Infection Goal: Absence of infection and prevention of transmission during hospitalization Outcome: Progressing Problem: Knowledge Deficit Goal: Patient and/or family demonstrate readiness to learn Outcome: Progressing Goal: Patient and/or family verbalizes understanding of education, and/or performs desired skill Outcome: Progressing Problem: Discharge Planning Goal: Discharge to home or other facility with appropriate resources Outcome: Progressing Goal: supervisor engraving will develop a plan to decrease their burden and enhance comfort in role Outcome: Progressing Problem: Pain Goal: Patient's Pain/Discomfort is Manageable Outcome: Progressing Problem: Knowledge Deficit Goal: Patient/family/caregiver demonstrates understanding of disease process, treatment plan, medications, and discharge instructions Outcome: Progressing Problem: Potential for Compromised Skin Integrity Goal: Skin integrity is maintained or improved Outcome: Progressing Goal: Nutritional status is improving Outcome: Progressing Problem: Bowel Incontinence Goal: Perineal Skin Integrity is Maintained or Improved Outcome: Progressing Problem: Knowledge Deficit Goal: Patient and/or family demonstrate readiness to learn Outcome: Progressing Goal: Patient and/or family verbalizes understanding of condition and treatment, education, and/or performs desired skill Outcome: Progressing Problem: Altered neuro status Goal: Achieves stable or improved neurological status Outcome: Progressing Problem: Risk for / Impaired Cognition Goal: Patient has stable or improving cognition Outcome: Progressing Problem: Risk for delirium Goal: Prevents and manages delirium Outcome: Progressing Problem: Risk for / Impaired Communication Goal: Establish communication to meet the patient/caregiver needs Outcome: Progressing Problem: Risk for / Impaired Mobility (Activity Intolerance) Goal: Mobility/activity is maintained at optimum level for patient Outcome: Progressing Problem: Self-Care Deficit Goal: Achieves maximum function and self-care Outcome: Progressing Problem: Risk for / Imbalanced Nutrition Goal: Maintains adequate nutritional intake Outcome: Progressing Problem: Risk for/Anxiety Goal: Demonstrates ability to cope effectively Outcome: Progressing Problem: Risk for/ impaired bladder elimination (bowel/bladder) Goal: Patient has stable or improved bladder elimination Outcome: Progressing Problem: Risk for /Impaired bowel Goal: Patient has stable or improved bowel elimination Outcome: Progressing Problem: Risk for Infection Goal: Absence of infection and prevention of transmission during hospitalization Outcome: Progressing Problem: Risk for / Impaired Skin Integrity Goal: Skin integrity is maintained or improved Outcome: Progressing Problem: Risk for altered SNS response Goal: Reduce risk and mointor for uninhibited response of sympathetic nervous system Outcome: Progressing Problem: Risk for seizure activity Goal: Absence of seizures Outcome: Progressing Goal: Remains free of injury related to seizures activity Outcome: Progressing Problem: Risk for Aspiration Goal: Patient is free of signs of aspiration and the risk of aspiration is decreased Outcome: Progressing Problem: Fall Safety: [place] Precautions Goal: Free from fall injury Outcome: Progressing Problem: Fall Huddle Goal: Free from Fall Injury Outcome: Progressing documented in this encounter Plan of Treatment Scheduled Referrals Name Type Priority Associated Diagnoses Orde r Schedule Consult to Home Care Outpatient Referral Routine Cerebrovascular accident Ordered: 11/24/2022 DME Order - Hospital Bed; Semi Electric Hospital Bed; 99 months Outpatient Referral Routine Cerebrovascular accident Ordered: 11/28/2022 DME Order - Specialty Mattress; Low Air Loss; 99 months Outpatient Referral Routine Cerebrovascular accident Ordered: 11/28/2022 DME Order - Commodes; Drop Arm Commode; 99 months Outpatient Referral Routine Cerebrovascular accident Ordered: 11/28/2022 DME Order - Manual Lift; Sling Lift; 99 months Outpatient Referral Routine Cerebrovascular accident Ordered: 11/28/2022 DME Order - Transfer Board; 24 inch - Without Cutout; 99 months Outpatient Referral Routine Cerebrovascular accident Ordered: 11/28/2022 Consult to Day [place] (Patient requires skilled day therapy program) Outpatient Referral Routine Cerebrovascular accident Ordered: 11/30/2022 DME Order - Manual Lift; Bzv-im-Draiu Lift; 99 months Outpatient Referral Routine Cerebrovascular accident Ordered: 12/11/2022 DME Order - Commodes; Drop Arm Commode, Heavy Duty Commode (301 - 450lbs); 99 months Outpatient Referral Routine Cerebrovascular accident Ordered: 12/11/2022 documented as of this encounter Procedures Procedure Name Priority Date/Time Associated Diagnosis Comments PROTIME-INR Routine 12/14/2022 12:18 AM CDT CBC Routine 12/14/2022 12:18 AM CDT BASIC METABOLIC PANEL Routine 12/14/2022 12:18 AM CDT PROTIME-INR Routine 12/13/2022 12:08 AM CDT PROTIME-INR Routine 12/12/2022 12:02 AM CDT PROTIME-INR Routine 12/11/2022 12:01 AM CDT CBC Routine 12/11/2022 12:01 AM CDT BASIC METABOLIC PANEL Routine 12/11/2022 12:01 AM CDT PROTIME-INR Routine 12/07/2022 9:07 AM CDT CBC Routine 12/07/2022 12:15 AM CDT BASIC METABOLIC PANEL Routine 12/07/2022 12:15 AM CDT URINALYSIS WITH REFLEX TO CULTURE Routine 12/06/2022 1:56 PM CDT URINALYSIS MICROSCOPIC ONLY W/REFLEX CULTURE Routine 12/06/2022 1:55 PM CDT URINE CULTURE Routine 12/06/2022 1:55 PM CDT MODIFIED BARIUM SWALLOW STUDY Routine 12/06/2022 10:26 AM CDT XR HIP 2-3 VW WITH PELVIS LEFT Routine 12/05/2022 11:47 AM CDT PROTIME-INR Routine 12/05/2022 4:34 AM CDT WOUND OSTOMY EVAL AND TREAT Routine 12/04/2022 11:53 AM CDT PROTIME-INR Routine 12/04/2022 3:35 AM CDT CBC Routine 12/04/2022 3:35 AM CDT BASIC METABOLIC PANEL Routine 12/04/2022 3:35 AM CDT PROTIME-INR Routine 12/03/2022 5:36 AM CDT PROTIME-INR Routine 12/02/2022 5:24 AM CDT PROTIME-INR Routine 12/01/2022 3:20 AM CDT PROTIME-INR Routine 11/30/2022 2:29 AM CDT BASIC METABOLIC PANEL Routine 11/30/2022 2:29 AM CDT CBC Routine 11/30/2022 2:29 AM CDT PROTIME-INR Routine 11/29/2022 5:18 AM CDT PROTIME-INR STAT 11/28/2022 3:32 PM CDT PROTIME-INR Routine 11/28/2022 4:00 AM CDT CBC Routine 11/27/2022 2:27 AM CDT BASIC METABOLIC PANEL Routine 11/27/2022 2:27 AM CDT PROTIME-INR Routine 11/27/2022 2:27 AM CDT XR HIP 2 VWS BILATERAL Routine 11/26/2022 12:50 PM CDT PROTIME-INR Routine 11/26/2022 12:05 AM CDT PROTIME-INR Routine 11/25/2022 2:06 AM CDT PROTIME-INR Routine 11/23/2022 3:58 AM CDT CBC Routine 11/23/2022 3:58 AM CDT BASIC METABOLIC PANEL Routine 11/23/2022 3:58 AM CDT PROTIME-INR Routine 11/21/2022 2:34 AM CDT PROTIME-INR Routine 11/20/2022 7:40 AM CDT CBC Routine 11/20/2022 7:40 AM CDT BASIC METABOLIC PANEL Routine 11/20/2022 7:40 AM CDT XR ABDOMEN 1 VW Routine 11/19/2022 9:[address] HEAD WO CONTRAST Routine 11/19/2022 9 :16 AM CDT PROTIME-INR Routine 11/19/2022 12:25 AM CDT PROTIME-INR Routine 11/18/2022 5:02 AM CDT CBC Routine 11/18/2022 5:02 AM CDT BASIC METABOLIC PANEL Routine 11/18/2022 5:02 AM CDT documented in this encounter Results * (ABNORMAL) PROTIME-INR (12/14/2022 12:18 AM CDT) [facility] PT Seconds Blood 24.2(H) 12.1 - 14.8 sec [facility] INR 2.3(H) 0.9 - 1.1 [facility] Blood (Blood, Venous) 12/14/2022 12:18 AM CDT 12/14/2022 8:40 AM CDT Narrative [facility] - 12/14/2022 8:56 AM CDT Conventional Warfarin Anticoagulant Therapy: INR Reference Range: ??2.0-3.0 Intensive Warfarin Anticoagulant Therapy: INR Reference Range: ? 2.5-3.5 Nghia Pryor MD LAB BLOOD ORDERABLES Final Result Performing Organization Address [facility] Co de Phone Number [facility] [address] [place] [address] * (ABNORMAL) BASIC METABOLIC PANEL (12/14/2022 12:18 AM CDT) Glucose mg/dL Blood 97 70 - 105 mg/dL [facility] Sodium mmol/L Blood 136 136 - 145 mmol/L [facility] Potassium mmol/L Blood 4.3 3.5 - 5.1 mmol/L [facility] Chloride 105 98 - 107 mmol/L [facility] CO2 21(L) 22 - 29 mmol/L [facility] Calcium mg/dL Blood 9.5 8.4 - 10.4 mg/dL [facility] Anion Gap Blood 10 6 - 16 mmol/L [facility] Bun mg/dL Blood 17 5.3 - 18.7 mg/dL [facility] Creatinine 0.71 0.57 - 1.11 mg/dL [facility] EGFRCR CKD-EPI >90 >=90 mL/min/1.7 3 m2 [facility] Blood (Blood, Venous) 12/14/2022 12:18 AM CDT 12/14/2022 8:40 AM CDT Nghia Pryor MD LAB BLOOD ORDERABLES Final Result Performing Organization Address [facility] de Phone Number [facility] [address] [place] [phone] * (ABNORMAL) CBC (12/14/2022 12:18 AM CDT) WBC X(10)9/L Blood 11.3(H) 4.4 - 10.7 x10E9/L [facility] Rbc X(10)12/L Blood 4.23 3.80 - 5.20 x10E12/L [facility] HGB gm/dL Blood 12.5 12.0 - 15.6 gm/dL [facility] HCT % Blood 39.1 35.9 - 45.5 % [facility] MCV fL Blood 92.4 80.7 - 98.3 fl [facility] MCH pg Blood 29.6 26.7 - 34.0 pg [facility] MCHC gm/dL Blood 32.0 30.8 - 35.9 gm/dL [facility] Plt Ct X(10)9/L Blood 460(H) 153 - 416 x10E9/L [facility] RDW-Cv % Blood 15.1(H) 12.1 - 14.9 % [facility] MPV fL Blood 10.9 9.4 - 12.9 fl [facility] Blood (Blood, Venous) 12/14/2022 12:18 AM CDT 12/14/2022 8:40 AM CDT Nghia Pryor MD LAB BLOOD ORDERABLES Final Result Performing Organization Address [facility] Co de Phone Number [facility] [address] [place] [phone] * (ABNORMAL) PROTIME-INR (12/13/2022 12:08 AM CDT) PT Seconds Blood 24.1(H) 12.1 - 14.8 sec [facility] INR 2.3(H) 0.9 - 1.1 [facility] Blood (Blood, Venous) 12/13/2022 12:08 AM CDT 12/13/2022 5:26 AM CDT Narrative [facility] - 12/13/2022 5:41 AM CDT Conventional Warfarin Anticoagulant Therapy: INR Reference Range: ??2.0-3.0 Intensive Warfarin Anticoagulant Therapy: INR Reference Range: ? 2.5-3.5 Nghia Pryor MD LAB BLOOD ORDERABLES Final Result Performing Organization Address [facility] Co de Phone Number [facility] [address] [place] [phone] * (ABNORMAL) PROTIME-INR (12/12/2022 12:02 AM CDT) PT Seconds Blood 24.2(H) 12.1 - 14.8 sec [facility] INR 2.3(H) 0.9 - 1.1 [facility] Blood (Blood, Venous) 12/12/2022 12:02 AM CDT 12/12/2022 3:17 AM CDT Narrative [facility] - 12/12/2022 3:32 AM CDT Conventional Warfarin Anticoagulant Therapy: INR Reference Range: ??2.0-3.0 Intensive Warfarin Anticoagulant Therapy: INR Reference Range: ? 2.5-3.5 Nghia Pryor MD LAB BLOOD ORDERABLES Final Result Performing Organization Address [facility] de Phone Number [facility] [address] [place] [address] * (ABNORMAL) PROTIME-INR (12/11/2022 12:01 AM CDT) PT Seconds Blood 25.2(H) 12.1 - 14.8 sec [facility] INR 2.3(H) 0.9 - 1.1 [facility] Blood (Blood, Venous) 12/11/2022 12:01 AM CDT 12/11/2022 4:14 AM CDT Narrative [facility] - 12/11/2022 4:28 AM CDT Conventional Warfarin Anticoagulant Therapy: INR Reference Range: ??2.0-3.0 Intensive Warfarin Anticoagulant Therapy: INR Reference Range: ? 2.5-3.5 Nghia Pryor MD LAB BLOOD ORDERABLES Final Result Performing Organization Address [facility] Co de Phone Number [facility] [address] [place] [address] * (ABNORMAL) BASIC METABOLIC PANEL (12/11/2022 12:01 AM CDT) Glucose mg/dL Blood 113(H) 70 - 105 mg/dL [facility] Sodium mmol/L Blood 141 136 - 145 mmol/L [facility] Potassium mmol/L Blood 4.2 3.5 - 5.1 mmol/L [facility] Chloride 110(H) 98 - 107 mmol/L [facility] CO2 21(L) 22 - 29 mmol/L [facility] Calcium mg/dL Blood 9.0 8.4 - 10.4 mg/dL [facility] Anion Gap Blood 10 6 - 16 mmol/L [facility] Bun mg/dL Blood 11 5.3 - 18.7 mg/dL [facility] Creatinine 0.66 0.57 - 1.11 mg/dL [facility] EGFRCR CKD-EPI >90 >=90 mL/min/1.7 3 m2 [facility] Blood (Blood, Venous) 12/11/2022 12:01 AM CDT 12/11/2022 4:14 AM CDT Nghia Pryor MD LAB BLOOD ORDERABLES Final Result [facility] [address] [place] [address] * (ABNORMAL) CBC (12/11/2022 12:01 AM CDT) WBC X(10)9/L Blood 10.7 4.4 - 10.7 x10E9/L [facility] Rbc X(10)12/L Blood 3.57(L) 3.80 - 5.20 x10E12/L [facility] HGB gm/dL Blood 10.8(L) 12.0 - 15.6 gm/dL [facility] HCT % Blood 33.0(L) 35.9 - 45.5 % [facility] MCV fL Blood 92.4 80.7 - 98.3 fl [facility] MCH pg Blood 30.3 26.7 - 34.0 pg [facility] MCHC gm/dL Blood 32.7 30.8 - 35.9 gm/dL [facility] Plt Ct X(10)9/L Blood 401 153 - 416 x10E9/L [facility] RDW-Cv % Blood 15.1(H) 12.1 - 14.9 % [facility] MPV fL Blood 11.2 9.4 - 12.9 fl [facility] Blood (Blood, Venous) 12/11/2022 12:01 AM CDT 12/11/2022 4:14 AM CDT Nghia Pryor MD LAB BLOOD ORDERABLES Final Result Performing Organization Address [facility] de Phone Number [facility] [address] [place] [address] * (ABNORMAL) PROTIME-INR (12/07/2022 9:07 AM CDT) PT Seconds Blood 25.6(H) 12.1 - 14.8 sec [facility] INR 2.4(H) 0.9 - 1.1 [facility] Blood (Blood, Venous) 12/07/2022 9:07 AM CDT 12/07/2022 9:30 AM CDT Narrative [facility] - 12/07/2022 9:45 AM CDT Conventional Warfarin Anticoagulant Therapy: INR Reference Range: ??2.0-3.0 Intensive Warfarin Anticoagulant Therapy: INR Reference Range: ? 2.5-3.5 Nghia Pryor MD LAB BLOOD ORDERABLES Final Result Performing Organization Address [facility] de Phone Number [facility] [address] [place] [phone] * (ABNORMAL) BASIC METABOLIC PANEL (12/07/2022 12:15 AM CDT) Glucose mg/dL Blood 164(H) 70 - 105 mg/dL [facility] Sodium mmol/L Blood 138 136 - 145 mmol/L [facility] Potassium mmol/L Blood 3.6 3.5 - 5.1 mmol/L [facility] Chloride 101 98 - 107 mmol/L [facility] CO2 23 22 - 29 mmol/L [facility] Calcium mg/dL Blood 9.3 8.4 - 10.4 mg/dL [facility] Anion Gap Blood 14 6 - 16 mmol/L [facility] Bun mg/dL Blood 8 5.3 - 18.7 mg/dL [facility] Creatinine 0.76 0.57 - 1.11 mg/dL [facility] EGFRCR CKD-EPI >90 >=90 mL/min/1.7 3 m2 [facility] Blood (Blood, Venous) 12/07/2022 12:15 AM CDT 12/07/2022 9:28 AM CDT Nghia Pryor MD LAB BLOOD ORDERABLES Final Result Performing Organization Address City/[facility]/ZIP Co de Phone Number [facility] [address] [place] [phone] * (ABNORMAL) CBC (12/07/2022 12:15 AM CDT) WBC X(10)9/L Blood 7.3 4.4 - 10.7 x10E9/L [facility] Rbc X(10)12/L Blood 3.43(L) 3.80 - 5.20 x10E12/L [facility] HGB gm/dL Blood 10.2(L) 12.0 - 15.6 gm/dL [facility] HCT % Blood 32.1(L) 35.9 - 45.5 % [facility] MCV fL Blood 93.6 80.7 - 98.3 fl [facility] MCH pg Blood 29.7 26.7 - 34.0 pg [facility] MCHC gm/dL Blood 31.8 30.8 - 35.9 gm/dL [facility] Plt Ct X(10)9/L Blood 319 153 - 416 x10E9/L [facility] RDW-Cv % Blood 15.2(H) 12.1 - 14.9 % [facility] MPV fL Blood 11.6 9.4 - 12.9 fl [facility] Blood (Blood, Venous) 12/07/2022 12:15 AM CDT 12/07/2022 6:08 AM CDT Nghia Pryor MD LAB BLOOD ORDERABLES Final Result [facility] [address] [place] [phone] * (ABNORMAL) Urinalysis with reflex to culture (12/06/2022 1:56 PM CDT) Color, Urine [place](A) Straw, Yellow [facility] Clarity, Urine Turbid(A) Clear [facility] Glucose, Ur Negative Negative [facility] Bilirubin Urine Negative Negative [facility] Ketones, urine Negative Negative [facility] Specific gravity 1.024 1.005 - 1.030 [facility] RBC, UA 2+(A) Negative [facility] pH, Urine 5.0 5.0 - 8.0 pH [facility] Protein, Ur 2+(A) Negative [facility] Urobilinogen, Urine 4.0(A) Negative mg/dL [facility] NITRITE Negative Negative [facility] Urine Leukocyte Esterase 3+(A) Negative [facility] Urine Microscopy UA Urine microscopy to follow [facility] REFLEX STATUS Culture to follow [facility] Urine (Straight Catheter) 12/06/2022 1:56 PM CDT 12/06/2022 2:07 PM CDT Narrative [facility] - 12/06/2022 3:20 PM CDT Very cloudy urine, slight odor Indications->Dysuria us Yamileth Frias MD LAB URINE ORDERABLES Final Resul t Performing Organization Address City/State/[facility] Co de Phone Number [facility] [address] [place] [address] * (ABNORMAL) Urine Culture (12/06/2022 1:55 PM CDT) Culture, Urine ESCHERICHIA COLI(A) [facility] Comment:>100,000 CFU/mL Psychiatric erichia coli Urine 12/06/2022 1:55 PM CDT 12/06/2022 4:29 PM CDT Narrative [facility] - 12/08/2022 5:04 AM CDT Very cloudy urine, slight odor Indications->Dysuria Organism Antibiotic Method Susceptibility Escherichia coli Amikacin ROSELIA <=2 ug/mL: Susceptible Escherichia coli Ampicillin ROSELIA <=2 ug/mL: Susceptible Escherichia coli Ampicillin + Sulbactam ROSELIA <=2 ug/mL: Susceptible Escherichia coli Cefazolin ROSELIA <=4 <=4 ug/mL Escherichia coli Cefepime ROSELIA <=1 ug/mL: Susceptible Escherichia coli Ceftriaxone ROSELIA <=1 ug/mL: Susceptible Escherichia coli Ciprofloxacin ROSELIA <=0.25 ug/mL: Susceptible Escherichia coli Extended Spec B-Lactamase ROSELIA NEG ug/mL Escherichia coli Gentamicin ROSELIA <=1 ug/mL: Susceptible Escherichia coli Meropenem ROSELIA <=0.25 ug/mL: Susceptible Escherichia coli Nitrofurantoin ROSELIA <=16 ug/mL: Susceptible Escherichia coli Piperacillin + Tazobactam ROSELIA <=4 ug/mL: Susceptible Escherichia coli Tobramycin ROSELIA <=1 ug/mL: Susceptible Escherichia coli Trimethoprim + Sulfamethoxazole ROSELIA <=20 ug/mL: Susceptible Comment: *Cefazolin ROSELIA [...] susceptibility result above. Yamileth Frias MD LAB MICROBIOLOGY - GENERAL ORDER NISSA Final Result [facility] [address] [place] [address] * (ABNORMAL) Urinalysis microscopic only w/reflex culture (12/06/2022 1:55 PM CDT) REFLEX STATUS Culture to follow [facility] RBC UA 21-50(A) 0 - 5 # /hpf [facility] LABORATORY WBC UA >100(A) 0 - 5 # /hpf [facility] WBC Clumps, Urine Many(A) None Seen /HPF [facility] Bacteria, Urine 3+(A) None Seen [facility] Squamous epithelial 0-2 0 - 5 /hpf [facility] Mucus, UA 4+ /LPF [facility] Calcium Oxalate Crystals, Urine Occasional( A) None seen /HPF [facility] Urine 12/06/2022 1:55 PM CDT 12/06/2022 2:07 PM CDT Narrative [facility] - 12/06/2022 2:47 PM CDT Very cloudy urine, slight odor Indications->Dysuria Yamileth Frias MD LAB URINE ORDERABLES Final Resul t [facility] [address] [place] [address] * Modified barium swallow study (12/06/2022 10:26 AM CDT) Anatomical Region Laterality Modality Computed Radiogr aphy Narrative 12/07/2022 3:49 PM CDT NARRATIVE: PROCEDURE: ??FL SWALLOWING FUNCTION STUDY, DATE/TIME OF EXAM: ??12/06/2022 10:27 AM, LOCATION ??[facility] INDICATION: dysphagia COMPARISON: None. FLUOROSCOPY DOSE: ??5.66 mGy Reference air kerma (ka,r). FLUOROSCOPY TIME: ??1051 minutes TECHNIQUE: Modified barium swallow fluoroscopy performed in conjunction with speech pathology staff. The speech pathologist administered varying thickness barium liquids and solids under direct Cine fluoroscopy. FINDINGS/IMPRESSION: Trace penetration with thin liquids. No evidence of aspiration. Report dictated by Walker Prakash DO (radiology physician assistant). Freddy Ornelas MD have personally reviewed and interpreted this examination/study. > Interpreting Provider: Freddy Muhammad MD on 12/07/2022 3:49 PM Procedure Note System, Provider Not In - 12/07/2022 NARRATIVE: PROCEDURE: FL SWALLOWING FUNCTION STUDY, DATE/TIME OF EXAM: 12/06/2022 10:27 AM, LOCATION [facility] INDICATION: dysphagia COMPARISON: None. FLUOROSCOPY DOSE: 5.66 mGy Reference air kerma (ka,r). FLUOROSCOPY TIME: 1051 minutes TECHNIQUE: Modified barium swallow fluoroscopy performed in conjunction with speech pathology staff. The speech pathologist administered varying thickness barium liquids and solids under direct Cine fluoroscopy. FINDINGS/IMPRESSION: Trace penetration with thin liquids. No evidence of aspiration. Report dictated by Walker Prakash DO (radiology physician assistant). I, Freddy Muhammad MD have personally reviewed and interpreted this examination/study. > Interpreting Provider: Freddy Muhammad MD on 12/07/2022 3:49 PM Yamileth CHASE DIAGNOSTIC IMAGING ORDERABLE S Final Result * XR hip left with pelvis (12/05/2022 11:47 AM CDT) Anatomical Region Laterality Modality Computed Radiogr aphy Narrative 12/05/2022 1:11 PM CDT NARRATIVE: PROCEDURE: ??XR PELVIS W LEFT HIP 2VW DATE/TIME OF EXAM: ??12/05/2022 11:47 AM, LOCATION ??[facility] INDICATION: OA. LEFT HIP 3 VIEW HISTORY: Pain. FINDINGS/IMPRESSION: Since 11/26/2022, there has been no significant interval change. The hip joints are grossly normal. The sacroiliac joints are normal. There is no evidence of an acute fracture or dislocation. Edited by Shauna Dee on 12/05/2022 12:56 PM > Interpreting Provider: Edgardo Pedroza MD on 12/05/2022 1:11 PM Procedure Note System, Provider Not In - 12/05/2022 NARRATIVE: PROCEDURE: XR PELVIS W LEFT HIP 2VW DATE/TIME OF EXAM: 12/05/2022 11:47 AM, LOCATION [facility] INDICATION: OA. LEFT HIP 3 VIEW HISTORY: Pain. FINDINGS/IMPRESSION: Since 11/26/2022, there has been no significant interval change. The hip joints are grossly normal. The sacroiliac joints are normal. There is no evidence of an acute fracture or dislocation. Edited by Shauna Dee on 12/05/2022 12:56 PM > Interpreting Provider: Edgardo Pedroza MD on 12/05/2022 1:11 PM Yamileth CHASE DIAGNOSTIC IMAGING ORDERABLE S Final Result * (ABNORMAL) PROTIME-INR (12/05/2022 4:34 AM CDT) PT Seconds Blood 27.1(H) 12.1 - 14.8 sec [facility] INR 2.6(H) 0.9 - 1.1 [facility] Blood (Blood, Venous) 12/05/2022 4:34 AM CDT 12/05/2022 5:08 AM CDT Narrative [facility] - 12/05/2022 5:15 AM CDT Conventional Warfarin Anticoagulant Therapy: INR Reference Range: ??2.0-3.0 Intensive Warfarin Anticoagulant Therapy: INR Reference Range: ? 2.5-3.5 Nghia Pryor MD LAB BLOOD ORDERABLES Final Result Performing Organization Address [facility] de Phone Number [facility] [address] [place] [phone] * (ABNORMAL) PROTIME-INR (12/04/2022 3:35 AM CDT) PT Seconds Blood 27.9(H) 12.1 - 14.8 sec [facility] INR 2.7(H) 0.9 - 1.1 [facility] Blood (Blood, Venous) 12/04/2022 3:35 AM CDT 12/04/2022 5:57 AM CDT Narrative [facility] - 12/04/2022 6:12 AM CDT Conventional Warfarin Anticoagulant Therapy: INR Reference Range: ??2.0-3.0 Intensive Warfarin Anticoagulant Therapy: INR Reference Range: ? 2.5-3.5 Nghia Pryor MD LAB BLOOD ORDERABLES Final Result Performing Organization Address [facility] de Phone Number [facility] [address] [place] [address] * BASIC METABOLIC PANEL (12/04/2022 3:35 AM CDT) Glucose mg/dL Blood 74 70 - 105 mg/dL [facility] Sodium mmol/L Blood 139 136 - 145 mmol/L [facility] Potassium mmol/L Blood 4.1 3.5 - 5.1 mmol/L [facility] Chloride 104 98 - 107 mmol/L [facility] CO2 22 22 - 29 mmol/L [facility] Calcium mg/dL Blood 9.2 8.4 - 10.4 mg/dL [facility] Anion Gap Blood 13 6 - 16 mmol/L [facility] Bun mg/dL Blood 10 5.3 - 18.7 mg/dL [facility] Creatinine 0.70 0.57 - 1.11 mg/dL [facility] EGFRCR CKD-EPI >90 >=90 mL/min/1.7 3 m2 [facility] Blood (Blood, Venous) 12/04/2022 3:35 AM CDT 12/04/2022 5:57 AM CDT Nghia Pryor MD LAB BLOOD ORDERABLES Final Result Performing Organization Address City/State/[facility] Co de Phone Number [facility] [address] [place] [address] * (ABNORMAL) CBC (12/04/2022 3:35 AM CDT) WBC X(10)9/L Blood 8.2 4.4 - 10.7 x10E9/L [facility] Rbc X(10)12/L Blood 3.40(L) 3.80 - 5.20 x10E12/L [facility] HGB gm/dL Blood 10.2(L) 12.0 - 15.6 gm/dL [facility] HCT % Blood 32.5(L) 35.9 - 45.5 % [facility] MCV fL Blood 95.6 80.7 - 98.3 fl [facility] MCH pg Blood 30.0 26.7 - 34.0 pg [facility] MCHC gm/dL Blood 31.4 30.8 - 35.9 gm/dL [facility] Plt Ct X(10)9/L Blood 269 153 - 416 x10E9/L [facility] RDW-Cv % Blood 15.1(H) 12.1 - 14.9 % [facility] MPV fL Blood 12.0 9.4 - 12.9 fl [facility] Blood (Blood, Venous) 12/04/2022 3:35 AM CDT 12/04/2022 5:57 AM CDT Nghia Pryor MD LAB BLOOD ORDERABLES Final Result Performing Organization Address [facility] Co de Phone Number [facility] [address] [place] [phone] * (ABNORMAL) PROTIME-INR (12/03/2022 5:36 AM CDT) PT Seconds Blood 25.1(H) 12.1 - 14.8 sec [facility] INR 2.4(H) 0.9 - 1.1 [facility] Blood (Blood, Venous) 12/03/2022 5:36 AM CDT 12/03/2022 5:51 AM CDT Narrative [facility] - 12/03/2022 6:02 AM CDT Conventional Warfarin Anticoagulant Therapy: INR Reference Range: ??2.0-3.0 Intensive Warfarin Anticoagulant Therapy: INR Reference Range: ? 2.5-3.5 Result [facility] Nghia Pryor MD LAB BLOOD ORDERABLES Final Result Performing Organization Address [facility] Co de Phone Number [facility] [address] [place] [phone] * (ABNORMAL) PROTIME-INR (12/02/2022 5:24 AM CDT) PT Seconds Blood 26.4(H) 12.1 - 14.8 sec [facility] INR 2.5(H) 0.9 - 1.1 [facility] Blood (Blood, Venous) 12/02/2022 5:24 AM CDT 12/02/2022 6:13 AM CDT Narrative [facility] - 12/02/2022 6:32 AM CDT Conventional Warfarin Anticoagulant Therapy: INR Reference Range: ??2.0-3.0 Intensive Warfarin Anticoagulant Therapy: INR Reference Range: ? 2.5-3.5 Nghia Pryor MD LAB BLOOD ORDERABLES Final Result Performing Organization Address [facility] Co de Phone Number [facility] [address] [place] [phone] * (ABNORMAL) PROTIME-INR (12/01/2022 3:20 AM CDT) PT Seconds Blood 25.9(H) 12.1 - 14.8 sec [facility] INR 2.5(H) 0.9 - 1.1 [facility] Blood (Blood, Venous) 12/01/2022 3:20 AM CDT 12/01/2022 4:16 AM CDT Narrative [facility] - 12/01/2022 4:46 AM CDT Conventional Warfarin Anticoagulant Therapy: INR Reference Range: ??2.0-3.0 Intensive Warfarin Anticoagulant Therapy: INR Reference Range: ? 2.5-3.5 Nghia Pryor MD LAB BLOOD ORDERABLES Final Result Performing Organization Address [facility] de Phone Number [facility] [address] [place] [phone] * (ABNORMAL) PROTIME-INR (11/30/2022 2:29 AM CDT) PT Seconds Blood 28.1(H) 12.1 - 14.8 sec [facility] INR 2.7(H) 0.9 - 1.1 [facility] Blood (Blood, Venous) 11/30/2022 2:29 AM CDT 11/30/2022 4:03 AM CDT Narrative [facility] - 11/30/2022 4:24 AM CDT Conventional Warfarin Anticoagulant Therapy: INR Reference Range: ??2.0-3.0 Intensive Warfarin Anticoagulant Therapy: INR Reference Range: ? 2.5-3.5 Nghia Pryor MD LAB BLOOD ORDERABLES Final Result Performing Organization Address [facility] de Phone Number [facility] [address] [place] [phone] * BASIC METABOLIC PANEL (11/30/2022 2:29 AM CDT) Glucose mg/dL Blood 84 70 - 105 mg/dL [facility] Sodium mmol/L Blood 142 136 - 145 mmol/L [facility] Potassium mmol/L Blood 3.8 3.5 - 5.1 mmol/L [facility] Chloride 105 98 - 107 mmol/L [facility] CO2 25 22 - 29 mmol/L [facility] Calcium mg/dL Blood 9.1 8.4 - 10.4 mg/dL [facility] Anion Gap Blood 12 6 - 16 mmol/L [facility] Bun mg/dL Blood 16 5.3 - 18.7 mg/dL [facility] Creatinine 0.72 0.57 - 1.11 mg/dL [facility] EGFRCR CKD-EPI >90 >=90 mL/min/1.7 3 m2 [facility] Blood (Blood, Venous) 11/30/2022 2:29 AM CDT 11/30/2022 4:03 AM CDT Nghia Pryor MD LAB BLOOD ORDERABLES Final Result Performing Organization Address City/State/[facility] Co de Phone Number [facility] [address] [place] [address] * (ABNORMAL) CBC (11/30/2022 2:29 AM CDT) WBC X(10)9/L Blood 6.7 4.4 - 10.7 x10E9/L [facility] Rbc X(10)12/L Blood 3.38(L) 3.80 - 5.20 x10E12/L [facility] HGB gm/dL Blood 10.0(L) 12.0 - 15.6 gm/dL [facility] HCT % Blood 32.1(L) 35.9 - 45.5 % [facility] MCV fL Blood 95.0 80.7 - 98.3 fl [facility] MCH pg Blood 29.6 26.7 - 34.0 pg [facility] MCHC gm/dL Blood 31.2 30.8 - 35.9 gm/dL [facility] Plt Ct X(10)9/L Blood 254 153 - 416 x10E9/L [facility] RDW-Cv % Blood 14.9 12.1 - 14.9 % [facility] MPV fL Blood 12.7 9.4 - 12.9 fl [facility] Blood (Blood, Venous) 11/30/2022 2:29 AM CDT 11/30/2022 4:03 AM CDT Nghia Pryor MD LAB BLOOD ORDERABLES Final Result Performing Organization Address [facility] Co de Phone Number [facility] [address] [place] [phone] * (ABNORMAL) PROTIME-INR (11/29/2022 5:18 AM CDT) PT Seconds Blood 26.2(H) 12.1 - 14.8 sec [facility] INR 2.5(H) 0.9 - 1.1 [facility] Blood (Blood, Venous) 11/29/2022 5:18 AM CDT 11/29/2022 5:29 AM CDT Narrative [facility] - 11/29/2022 5:46 AM CDT Conventional Warfarin Anticoagulant Therapy: INR Reference Range: ??2.0-3.0 Intensive Warfarin Anticoagulant Therapy: INR Reference Range: ? 2.5-3.5 Nghia Pryor MD LAB BLOOD ORDERABLES Final Result Performing Organization Address [facility] Co de Phone Number [facility] [address] [place] [phone] * (ABNORMAL) PROTIME-INR (11/28/2022 3:32 PM CDT) PT Seconds Blood 21.0(H) 12.1 - 14.8 sec [facility] INR 1.9(H) 0.9 - 1.1 [facility] Blood (Blood, Venous) 11/28/2022 3:32 PM CDT 11/28/2022 3:42 PM CDT Narrative [facility] - 11/28/2022 4:04 PM CDT Conventional Warfarin Anticoagulant Therapy: INR Reference Range: ??2.0-3.0 Intensive Warfarin Anticoagulant Therapy: INR Reference Range: ? 2.5-3.5 Nghia Pryor MD LAB BLOOD ORDERABLES Final Result Performing Organization Address [facility] Co de Phone Number [facility] [address] [place] [address] * (ABNORMAL) PROTIME-INR (11/28/2022 4:00 AM CDT) PT Seconds Blood 36.6(H) 12.1 - 14.8 sec [facility] INR 3.8(H) 0.9 - 1.1 [facility] Blood (Blood, Venous) 11/28/2022 4:00 AM CDT 11/28/2022 5:20 AM CDT Narrative [facility] - 11/28/2022 5:41 AM CDT Conventional Warfarin Anticoagulant Therapy: INR Reference Range: ??2.0-3.0 Intensive Warfarin Anticoagulant Therapy: INR Reference Range: ? 2.5-3.5 Nghia Pryor MD LAB BLOOD ORDERABLES Final Result Performing Organization Address [facility] de Phone Number [facility] [address] [place] [phone] * (ABNORMAL) CBC (11/27/2022 2:27 AM CDT) Pathologist [facility] WBC X(10)9/L Blood 7.4 4.4 - 10.7 x10E9/L [facility] Rbc X(10)12/L Blood 3.34(L) 3.80 - 5.20 x10E12/L [facility] HGB gm/dL Blood 9.9(L) 12.0 - 15.6 gm/dL [facility] HCT % Blood 31.8(L) 35.9 - 45.5 % [facility] MCV fL Blood 95.2 80.7 - 98.3 fl [facility] MCH pg Blood 29.6 26.7 - 34.0 pg [facility] MCHC gm/dL Blood 31.1 30.8 - 35.9 gm/dL [facility] Plt Ct X(10)9/L Blood 291 153 - 416 x10E9/L [facility] RDW-Cv % Blood 15.4(H) 12.1 - 14.9 % [facility] MPV fL Blood 12.0 9.4 - 12.9 fl [facility] Blood (Blood, Venous) 11/27/2022 2:27 AM CDT 11/27/2022 3:12 AM CDT Nghia Pryor MD LAB BLOOD ORDERABLES Final Result Performing Organization Address [facility] Co de Phone Number [facility] [address] [place] [phone] * (ABNORMAL) BASIC METABOLIC PANEL (11/27/2022 2:27 AM CDT) Glucose mg/dL Blood 124(H) 70 - 105 mg/dL [facility] Sodium mmol/L Blood 138 136 - 145 mmol/L [facility] Potassium mmol/L Blood 3.8 3.5 - 5.1 mmol/L [facility] Chloride 101 98 - 107 mmol/L [facility] CO2 26 22 - 29 mmol/L [facility] Calcium mg/dL Blood 9.3 8.4 - 10.4 mg/dL [facility] Anion Gap Blood 11 6 - 16 mmol/L [facility] Bun mg/dL Blood 13 5.3 - 18.7 mg/dL [facility] Creatinine 0.74 0.57 - 1.11 mg/dL [facility] EGFRCR CKD-EPI >90 >=90 mL/min/1.7 3 m2 [facility] Blood (Blood, Venous) 11/27/2022 2:27 AM CDT 11/27/2022 3:12 AM CDT Nghia Pryor MD LAB BLOOD ORDERABLES Final Result Performing Organization Address [facility] Co de Phone Number [facility] [address] [place] [phone] * (ABNORMAL) PROTIME-INR (11/27/2022 2:27 AM CDT) PT Seconds Blood 17.0(H) 12.1 - 14.8 sec [facility] INR 1.5(H) 0.9 - 1.1 [facility] Blood (Blood, Venous) 11/27/2022 2:27 AM CDT 11/27/2022 3:13 AM CDT Narrative [facility] - 11/27/2022 3:26 AM CDT Conventional Warfarin Anticoagulant Therapy: INR Reference Range: ??2.0-3.0 Intensive Warfarin Anticoagulant Therapy: INR Reference Range: ? 2.5-3.5 Nghia Pryor MD LAB BLOOD ORDERABLES Final Result [facility] [address] [place] [address] * XR hip bilateral 2 vws (11/26/2022 12:50 PM CDT) Anatomical Region Laterality Modality Computed Radiogr aphy Narrative 11/26/2022 1:46 PM CDT NARRATIVE: PROCEDURE: ??XR HIPS BILATERAL 2VW, DATE/TIME OF EXAM: ??11/26/2022 1:26 PM, LOCATION ??[facility] INDICATION: Pain Bilateral hips 2 view HISTORY: Bilateral pain and injury The visualized osseous structures are grossly normal without fracture or dislocation. The soft tissues are normal. > Interpreting Provider: Edgardo Pedroza MD on 11/26/2022 1:46 PM Procedure Note System, Provider Not In - 11/26/2022 NARRATIVE: PROCEDURE: XR HIPS BILATERAL 2VW, DATE/TIME OF EXAM: 11/26/2022 1:26PM, LOCATION [facility] INDICATION: Pain Bilateral hips 2 view HISTORY: Bilateral pain and injury The visualized osseous structures are grossly normal without fracture or dislocation. The soft tissues are normal. > Interpreting Provider: Edgardo Pedroza MD on 11/26/2022 1:46 PM Loy Dawson MD IMG DIAGNOSTIC IMAGING ORDERA BLES Final Result * (ABNORMAL) PROTIME-INR (11/26/2022 12:05 AM CDT) PT Seconds Blood 18.2(H) 12.1 - 14.8 sec [facility] INR 1.6(H) 0.9 - 1.1 [facility] Blood (Blood, Venous) 11/26/2022 12:05 AM CDT 11/26/2022 5:58 AM CDT Narrative [facility] - 11/26/2022 6:17 AM CDT Conventional Warfarin Anticoagulant Therapy: INR Reference Range: ??2.0-3.0 Intensive Warfarin Anticoagulant Therapy: INR Reference Range: ? 2.5-3.5 Nghia Pryor MD LAB BLOOD ORDERABLES Final Result Performing Organization Address [facility] Co de Phone Number [facility] [address] [place] [phone] * (ABNORMAL) PROTIME-INR (11/25/2022 2:06 AM CDT) PT Seconds Blood 19.3(H) 12.1 - 14.8 sec [facility] INR 1.7(H) 0.9 - 1.1 [facility] Blood (Blood, Venous) 11/25/2022 2:06 AM CDT 11/25/2022 2:53 AM CDT Narrative [facility] - 11/25/2022 3:09 AM CDT Conventional Warfarin Anticoagulant Therapy: INR Reference Range: ??2.0-3.0 Intensive Warfarin Anticoagulant Therapy: INR Reference Range: ? 2.5-3.5 Nghia Pryor MD LAB BLOOD ORDERABLES Final Result Performing Organization Address City/[facility] Co de Phone Number [facility] [address] [place] [phone] * (ABNORMAL) PROTIME-INR (11/23/2022 3:58 AM CDT) PT Seconds Blood 16.0(H) 12.1 - 14.8 sec [facility] INR 1.3(H) 0.9 - 1.1 [facility] Blood (Blood, Venous) 11/23/2022 3:58 AM CDT 11/23/2022 5:19 AM CDT Narrative [facility] - 11/23/2022 5:32 AM CDT Conventional Warfarin Anticoagulant Therapy: INR Reference Range: ??2.0-3.0 Intensive Warfarin Anticoagulant Therapy: INR Reference Range: ? 2.5-3.5 Nghia Pryor MD LAB BLOOD ORDERABLES Final Result Performing Organization Address [facility] Co de Phone Number [facility] [address] [place] [address] * BASIC METABOLIC PANEL (11/23/2022 3:58 AM CDT) Glucose mg/dL Blood 100 70 - 105 mg/dL [facility] Sodium mmol/L Blood 141 136 - 145 mmol/L [facility] Potassium mmol/L Blood 3.8 3.5 - 5.1 mmol/L [facility] Chloride 106 98 - 107 mmol/L [facility] CO2 24 22 - 29 mmol/L [facility] Calcium mg/dL Blood 9.4 8.4 - 10.4 mg/dL [facility] Anion Gap Blood 11 6 - 16 mmol/L [facility] Bun mg/dL Blood 15 5.3 - 18.7 mg/dL [facility] Creatinine 0.63 0.57 - 1.11 mg/dL [facility] EGFRCR CKD-EPI >90 >=90 mL/min/1.7 3 m2 [facility] Blood (Blood, Venous) 11/23/2022 3:58 AM CDT 11/23/2022 5:19 AM CDT Nghia Pryor MD LAB BLOOD ORDERABLES Final Result Performing Organization Address [facility] Co de Phone Number [facility] [address] [place] [address] * (ABNORMAL) CBC (11/23/2022 3:58 AM CDT) WBC X(10)9/L Blood 7.0 4.4 - 10.7 x10E9/L [facility] Rbc X(10)12/L Blood 3.55(L) 3.80 - 5.20 x10E12/L [facility] HGB gm/dL Blood 10.4(L) 12.0 - 15.6 gm/dL [facility] HCT % Blood 35.0(L) 35.9 - 45.5 % [facility] MCV fL Blood 98.6(H) 80.7 - 98.3 fl [facility] MCH pg Blood 29.3 26.7 - 34.0 pg [facility] MCHC gm/dL Blood 29.7(L) 30.8 - 35.9 gm/dL [facility] Plt Ct X(10)9/L Blood 439(H) 153 - 416 x10E9/L [facility] RDW-Cv % Blood 15.6(H) 12.1 - 14.9 % [facility] MPV fL Blood 11.4 9.4 - 12.9 fl [facility] Blood (Blood, Venous) 11/23/2022 3:58 AM CDT 11/23/2022 5:19 AM CDT Nghia Pryor MD LAB BLOOD ORDERABLES Final Result Performing Organization Address [facility] de Phone Number [facility] [address] [place] [phone] * (ABNORMAL) PROTIME-INR (11/21/2022 2:34 AM CDT) PT Seconds Blood 15.2(H) 12.1 - 14.8 sec [facility] INR 1.3(H) 0.9 - 1.1 [facility] Blood (Blood, Venous) 11/21/2022 2:34 AM CDT 11/21/2022 3:40 AM CDT Narrative [facility] - 11/21/2022 3:55 AM CDT Conventional Warfarin Anticoagulant Therapy: INR Reference Range: ??2.0-3.0 Intensive Warfarin Anticoagulant Therapy: INR Reference Range: ? 2.5-3.5 Nghia Pryor MD LAB BLOOD ORDERABLES Final Result Performing Organization Address City/[facility] Co de Phone Number [facility] [address] [place] [address] * (ABNORMAL) BASIC METABOLIC PANEL (11/20/2022 7:40 AM CDT) Glucose mg/dL Blood 114(H) 70 - 105 mg/dL [facility] Sodium mmol/L Blood 141 136 - 145 mmol/L [facility] Potassium mmol/L Blood 3.8 3.5 - 5.1 mmol/L [facility] Chloride 105 98 - 107 mmol/L [facility] CO2 26 22 - 29 mmol/L [facility] Calcium mg/dL Blood 9.2 8.4 - 10.4 mg/dL [facility] Anion Gap Blood 10 6 - 16 mmol/L [facility] Bun mg/dL Blood 21(H) 5.3 - 18.7 mg/dL [facility] Creatinine 0.77 0.57 - 1.11 mg/dL [facility] EGFRCR CKD-EPI >90 >=90 mL/min/1.7 3 m2 [facility] Blood (Blood, Venous) 11/20/2022 7:40 AM CDT 11/20/2022 8:16 AM CDT Nghia Pryor MD LAB BLOOD ORDERABLES Final Result [facility] [address] [place] [address] * (ABNORMAL) CBC (11/20/2022 7:40 AM CDT) WBC X(10)9/L Blood 8.1 4.4 - 10.7 x10E9/L [facility] Rbc X(10)12/L Blood 3.57(L) 3.80 - 5.20 x10E12/L [facility] HGB gm/dL Blood 10.6(L) 12.0 - 15.6 gm/dL [facility] HCT % Blood 33.6(L) 35.9 - 45.5 % [facility] MCV fL Blood 94.1 80.7 - 98.3 fl [facility] MCH pg Blood 29.7 26.7 - 34.0 pg [facility] MCHC gm/dL Blood 31.5 30.8 - 35.9 gm/dL [facility] Plt Ct X(10)9/L Blood 522(H) 153 - 416 x10E9/L [facility] RDW-Cv % Blood 16.0(H) 12.1 - 14.9 % [facility] MPV fL Blood 10.7 9.4 - 12.9 fl [facility] Blood (Blood, Venous) 11/20/2022 7:40 AM CDT 11/20/2022 8:16 AM CDT Nghia Pryor MD LAB BLOOD ORDERABLES Final Result Performing Organization Address [facility] Co de Phone Number [facility] [address] [place] [address] * (ABNORMAL) PROTIME-INR (11/20/2022 7:40 AM CDT) PT Seconds Blood 14.4 12.1 - 14.8 sec [facility] INR 1.2(H) 0.9 - 1.1 [facility] Blood (Blood, Venous) 11/20/2022 7:40 AM CDT 11/20/2022 8:16 AM CDT Narrative [facility] - 11/20/2022 8:53 AM CDT Conventional Warfarin Anticoagulant Therapy: INR Reference Range: ??2.0-3.0 Intensive Warfarin Anticoagulant Therapy: INR Reference Range: ? 2.5-3.5 Nghia Pryor MD LAB BLOOD ORDERABLES Final Result Performing Organization Address City/[facility] Co de Phone Number [facility] [address] [place] [phone] * XR abdomen 1 vws (11/19/2022 9:37 AM CDT) Anatomical Region Laterality Modality Body Computed Radiogr aphy Narrative 11/19/2022 9:43 AM CDT NARRATIVE: Procedure: XR ABDOMEN KUB ??Exam Date: ??11/19/2022 9:38 AM ?? Location: ??[facility] Indication: abdominal fullness, reflux. Patient on peg tube feeding FINDINGS/IMPRESSION: Air is seen throughout the colonic structures. No dilated bowel loops are identified. There is no evidence to suggest obstruction. There is no gross free intraperitoneal air. There does appear to be a gastrostomy tube superimposing the stomach. > Interpreting Provider: Rebel Hernandez MD on 11/19/2022 9:43 AM Procedure Note System, Provider Not In - 11/19/2022 NARRATIVE: Procedure: XR ABDOMEN KUB Exam Date: 11/19/2022 9:38 AM Location: [facility] Indication: abdominal fullness, reflux. Patient on peg tube feeding FINDINGS/IMPRESSION: Air is seen throughout the colonic structures. No dilated bowel loops are identified. There is no evidence to suggest obstruction. There is no gross free intraperitoneal air. There doesappear to be a gastrostomy tube superimposing the stomach. > Interpreting Provider: Rebel Hernandez MD on 11/19/2022 9:43 AM Marlee Bradley MD IMG DIAGNOSTIC IMAGING ORDERAB LES Final Result * CT head WO contrast (11/19/2022 9:16 AM CDT) Anatomical Region Laterality Modality Head and Neck Computed Tomogra phy Impressions 11/19/2022 9:36 AM CDT IMPRESSION: IMPRESSION: Right frontal craniectomy with extensive encephalomalacia involving the right frontal lobe as well as some involvement of the parietal and temporal lobes. > Interpreting Provider: Rebel Hernandez MD on 11/19/2022 9:36 AM Narrative 11/19/2022 9:36 AM CDT NARRATIVE: Procedure: CT HEAD WO CONTRAST ??Exam Date: ??11/19/2022 9:31 AM ?? Location: [facility] CT head without IV contrast ?? INDICATION: ??worsening pain TECHNIQUE: CT examination of the head was performed from the base of the skull through the vertex using multiple axial images without IV contrast. FINDINGS: No old studies are available for comparison purposes. VIZ AI was utilized. Patient is status post right-sided craniectomy. There is extensive encephalomalacia involving the right frontal lobe with with some minimal involvement of the temporal and parietal lobe. There is no acute infarct. There is no mass. ?? There is no hemorrhage. There are no extra-axial fluid collections. ?? There is no midline shift. Procedure Note System, Provider Not In - 11/19/2022 NARRATIVE: Procedure: CT HEAD WO CONTRAST Exam Date: 11/19/2022 9:31 AM Location: [facility] CT head without IV contrast INDICATION: worsening pain TECHNIQUE: CT examination of the head was performed from the base of the skull through the vertex using multiple axial images without IVcontrast. FINDINGS: No old studies are available for comparison purposes. VIZ AIwas utilized. Patient is status post right-sided craniectomy. There is extensive encephalomalacia involving the right frontal lobe with with some minimal involvement of the temporal and parietal lobe. There is no acuteinfarct. There is no mass. There is no hemorrhage. There are no extra-axialfluid collections. There is no midline shift. IMPRESSION: IMPRESSION: IMPRESSION: Right frontal craniectomy with extensive encephalomalacia involving the right frontal lobe as well as some involvement of the parietal andtemporal lobes. > Interpreting Provider: Rebel Hernandez MD on 11/19/2022 9:36 AM Marlee Bradley MD IMG CT ORDERABLES Final Result * (ABNORMAL) PROTIME-INR (11/19/2022 12:25 AM CDT) PT Seconds Blood 14.2 12.1 - 14.8 sec [facility] INR 1.2(H) 0.9 - 1.1 [facility] Blood (Blood, Venous) 11/19/2022 12:25 AM CDT 11/19/2022 6:10 AM CDT Narrative [facility] - 11/19/2022 6:29 AM CDT Conventional Warfarin Anticoagulant Therapy: INR Reference Range: ??2.0-3.0 Intensive Warfarin Anticoagulant Therapy: INR Reference Range: ? 2.5-3.5 Nghia Pryor MD LAB BLOOD ORDERABLES Final Result Performing Organization Address City/State/[facility] de Phone Number [facility] [address] [place] [address] * (ABNORMAL) PROTIME-INR (11/18/2022 5:02 AM CDT) PT Seconds Blood 14.1 12.1 - 14.8 sec [facility] INR 1.2(H) 0.9 - 1.1 [facility] Blood (Blood, Venous) 11/18/2022 5:02 AM CDT 11/18/2022 5:49 AM CDT Narrative [facility] - 11/18/2022 6:12 AM CDT Conventional Warfarin Anticoagulant Therapy: INR Reference Range: ??2.0-3.0 Intensive Warfarin Anticoagulant Therapy: INR Reference Range: ? 2.5-3.5 Nghia Pryor MD LAB BLOOD ORDERABLES Final Result Performing Organization Address [facility] de Phone Number [facility] [address] [place] [phone] * (ABNORMAL) BASIC METABOLIC PANEL (11/18/2022 5:02 AM CDT) Glucose mg/dL Blood 106(H) 70 - 105 mg/dL [facility] Sodium mmol/L Blood 142 136 - 145 mmol/L [facility] Potassium mmol/L Blood 4.1 3.5 - 5.1 mmol/L [facility] Chloride 104 98 - 107 mmol/L [facility] CO2 26 22 - 29 mmol/L [facility] Calcium mg/dL Blood 9.2 8.4 - 10.4 mg/dL [facility] Anion Gap Blood 12 6 - 16 mmol/L [facility] Bun mg/dL Blood 16 5.3 - 18.7 mg/dL [facility] Creatinine 0.77 0.57 - 1.11 mg/dL [facility] EGFRCR CKD-EPI >90 >=90 mL/min/1.7 3 m2 [facility] Blood (Blood, Venous) 11/18/2022 5:02 AM CDT 11/18/2022 5:46 AM CDT Nghia Pyror MD LAB BLOOD ORDERABLES Final Result Performing Organization Address [facility] Co de Phone Number [facility] [address] [place] [address] * (ABNORMAL) CBC w/o Differential (11/18/2022 5:02 AM CDT) WBC X(10)9/L Blood 10.3 4.4 - 10.7 x10E9/L [facility] Rbc X(10)12/L Blood 3.57(L) 3.80 - 5.20 x10E12/L [facility] HGB gm/dL Blood 10.6(L) 12.0 - 15.6 gm/dL [facility] HCT % Blood 34.2(L) 35.9 - 45.5 % [facility] MCV fL Blood 95.8 80.7 - 98.3 fl [facility] MCH pg Blood 29.7 26.7 - 34.0 pg [facility] MCHC gm/dL Blood 31.0 30.8 - 35.9 gm/dL [facility] Plt Ct X(10)9/L Blood 541(H) 153 - 416 x10E9/L [facility] RDW-Cv % Blood 15.8(H) 12.1 - 14.9 % [facility] MPV fL Blood 10.9 9.4 - 12.9 fl [facility] Blood (Blood, Venous) 11/18/2022 5:02 AM CDT 11/18/2022 5:46 AM CDT Nghia Pryor MD LAB BLOOD ORDERABLES Final Result Performing Organization Address [facility] Co de Phone Number [facility] [address] [place] [phone] documented in this encounter Visit Diagnoses Diagnosis Cerebrovascular accident- Primary Cerebrovascular accident Trochanteric bursitis of left hip documented in this encounter Admitting Diagnoses Diagnosis Cerebrovascular accident documented in this encounter Administered Medications Inactive Administered Medications - up to 3 most recent administrations Medication Order MAR Action Action Date Dose Rate Site acetaminophen (TYLENOL) tablet 500 mg 500 mg, Per Tube, Every 6 hours PRN, Starting on Sun11/17/22 at 1712, Until Sun12/14/22 at 1059, mild pain, moderate pain, Fever Given 12/13/2022 3:26 PM CDT 500 mg Given 12/07/2022 1:53 PM CDT 500 mg Given 12/05/2022 1:39 PM CDT 500 mg baclofen (LIORESAL) tablet 5 mg 5 mg, Oral, Nightly, First dose on Sun11/28/22 at 2100, Until Discontinued Given 12/13/2022 9:35 PM CDT 5 mg Given 12/12/2022 9:19 PM CDT 5 mg Given 12/11/2022 9:35 PM CDT 5 mg bethanechol (URECHOLINE) tablet 25 mg 25 mg, Oral, 3 times daily (3 times per day), First dose on Sun11/28/22 at 1500, Until Discontinued Given 12/14/2022 8:07 AM CDT 25 mg Given 12/13/2022 9:35 PM CDT 25 mg Given 12/13/2022 3:25 PM CDT 25 mg bisacodyl (DULCOLAX) suppository 10 mg 10 mg, Rectal, Daily PRN, Starting on Sun11/17/22 at 1712, Until Sun12/06/22 at 1438, NO BM In 48hrs Given 12/02/2022 10:54 AM CDT 10 mg bisacodyl (DULCOLAX) suppository 10 mg 10 mg, Rectal, Daily PRN, Starting on Sun12/06/22 at 1437, Until Sun12/14/22 at 1059, offer second line Given 12/10/2022 12:55 PM CDT 10 mg Given 12/06/2022 6:21 PM CDT 10 mg cefdinir (OMNICEF) capsule 300 mg 300 mg, Oral, 2 times daily (2 times per day), 14 doses, First dose on Sun12/07/22 at 1615, Last dose on Sun12/14/22 at 0900, Indications: Uncomplicated Urinary Tract InfectionIndications:Uncomplicated Urinary Tract Infection Given 12/14/2022 8:06 AM CDT 300 mg Given 12/13/2022 9:35 PM CDT 300 mg Given 12/13/2022 8:06 AM CDT 300 mg cholecalciferol (VITAMIN D3) tablet 2,000 Units 2,000 Units, Per Tube, Daily, First dose (after last modification) on Sun11/18/22 at 0900, Until Discontinued Given 12/14/2022 8:07 AM CDT 2,000 Units Given 12/13/2022 8:06 AM CDT 2,000 Units Given 12/12/2022 9:03 AM CDT 2,000 Units cyclobenzaprine (FLEXERIL) tablet 5 mg 5 mg, Oral, 3 times daily (3 times per day), First dose (after last modification) on Sun11/25/22 at 1500, Until Discontinued Given 12/14/2022 8:06 AM CDT 5 mg Given 12/13/2022 9:35 PM CDT 5 mg Given 12/13/2022 3:24 PM CDT 5 mg doxycycline (VIBRAMYCIN/MONODOX) capsule 100 mg 100 mg, Enteral, 2 times daily (2 times per day), 10 doses, First dose (after last modification) on Sun11/17/22 at 2100, Last dose on Sun11/22/22 at 0900, DO NOT CRUSH, CUT, OR CHEW., Indications: abscess under PEGIndications:abscess under PEG Given 11/22/2022 8:31 AM CDT 100 mg Given 11/21/2022 8:55 PM CDT 100 mg Given 11/21/2022 8:25 AM CDT 100 mg enoxaparin (LOVENOX) syringe 100 mg 100 mg, Subcutaneous, Every 12 hours, First dose (after last modification) on Sun11/17/22 at 2100, Until Discontinued, Indications: Acute Ischemic Stroke, Bridge for warfarinIndications:Acute Ischemic Stroke,Bridge for warfarin Given 11/30/2022 9:27 AM CDT 100 mg Abdom inal Tissue Given 11/29/2022 9:30 PM CDT 100 mg Ab dominal Tissue Given 11/29/2022 8:18 AM CDT 100 mg Ab dominal Tissue fluconazole (DIFLUCAN) tablet 150 mg 150 mg, Oral, Once, 1 dose, On 11/26/22 at 1530, Reason for Therapy: Bacterial Infection Suspected, Type of Therapy: New Therapy, Indication: Other, Specify: Yeast infection Given 11/26/2022 5:59 PM C DT 150 mg fluconazole (DIFLUCAN) tablet 200 mg 200 mg, Oral, Daily, 2 doses, First dose on Sun12/12/22 at 0900, Last dose on Sun12/13/22 at 0900, Reason for Therapy: Fungal Infection Suspected, Type of Therapy: New Therapy, Indication: Skin-soft tissue infection Given 12/13/2022 8:05 AM CDT 200 m g Given 12/12/2022 9:02 AM CDT 200 mg gabapentin (NEURONTIN) capsule 300 mg 300 mg, Oral, 3 times daily (3 times per day), First dose on 12/03/22 at 0745, Until Discontinued Given 12/14/2022 8:07 AM CDT 300 mg Given 12/13/2022 9:35 PM CDT 300 mg Given 12/13/2022 3:25 PM CDT 300 mg hydrocortisone (ANUSOL-HC) 2.5 % rectal cream Rectal, 2 times daily (2 times per day), First dose on Sun11/26/22 at 2100, Until Discontinued Given 12/12/2022 9:20 PM CDT Given 12/10/2022 10:29 PM CDT Given 12/09/2022 9:08 PM CDT hydrOXYzine (ATARAX) tablet 25 mg 25 mg, Oral, Every 6 hours PRN, Starting on Sun11/22/22 at 1017, Until Sun12/14/22 at 1059, anxiety Given 12/13/2022 9:35 PM CDT 25 mg Given 12/12/2022 9:20 PM CDT 25 mg Given 12/11/2022 9:35 PM CDT 25 mg lidocaine (LIDOCARE) 4 % patch 1 patch 1 patch, Transdermal, Administer over 12 Hours, Daily, First dose on 11/25/22 at 0900, Until Discontinued, Apply to hip as needed Medication Applied 12/12/2022 9:04 AM CDT 1 patch Other Medication Applied 12/09/2022 8:36 AM CDT 1 patch Other Medication Applied 12/08/2022 8:17 AM CDT 1 patch Other lidocaine (XYLOCAINE) 1 % injection 8 mL 8 mL, Other, Once, 1 dose, On Sun12/08/22 at 0900, Inject by . Given 12/08/2022 1:10 PM CDT 8 mL loratadine (CLARITIN) tablet 10 mg 10 mg, Enteral, Daily, First dose (after last modification) on Sun11/18/22 at 0900, Until Discontinued, Sub for zyrtec Given 12/14/2022 8:07 AM CDT 10 mg Given 12/13/2022 8:06 AM CDT 10 mg Given 12/12/2022 9:05 AM CDT 10 mg meropenem (MERREM) 2 g in sodium chloride 0.9 % 140 mL IVPB 2 g, Intravenous, at 280 mL/hr, Administer over 30 Minutes, Every 8 hours (Interval), 15 doses, First dose on Sun11/17/22 at 2000, Last dose on Sun11/22/22 at 1200, REFRIGERATE, Indications: abscess under pegIndications:abscess under peg Given 11/22/2022 12:57 PM CDT 2 g 280 mL/hr Given 11/22/2022 3:46 AM CDT 2 g 280 mL/hr Given 11/21/2022 8:54 PM CDT 2 g 280 mL/hr metoprolol tartrate (LOPRESSOR) tablet 25 mg 25 mg, Enteral, 2 times daily (2 times per day), First dose (after last modification) on Sun11/17/22 at 2100, Until Discontinued, Hold for SBP less than 100 or HR less than 60 Given 12/14/2022 8:08 AM CDT 25 mg Given 12/13/2022 9:36 PM CDT 25 mg Given 12/13/2022 8:05 AM CDT 25 mg muscle rub (ICY HOT) 10-15 % cream Topical, 3 times daily (3 times per day), First dose on Sun12/05/22 at 1500, Until Discontinued Given 12/13/2022 8:05 AM CDT Given 12/12/2022 9:20 PM CDT Given 12/11/2022 9:36 PM CDT ondansetron ODT (ZOFRAN-ODT) disintegrating tablet 4 mg 4 mg, Per Tube, Every 6 hours PRN, Starting on 11/19/22 at 0016, Until Katy 12/14/22 at 1059, nausea, vomiting Given 12/12/2022 5:12 AM CDT 4 mg Given 12/10/2022 11:16 PM CDT 4 mg Given 12/07/2022 10:32 AM CDT 4 mg oxyCODONE (ROXICODONE) immediate release tablet 5 mg 5 mg, Enteral, Every 6 hours PRN, Starting on Sun11/17/22 at 1712, Until 11/18/22 at 1328, severe pain, Indications: Acute PainIndications:Acute Pain Given 11/17/2022 11:32 PM CDT 5 mg oxyCODONE (ROXICODONE) immediate release tablet 5 mg 5 mg, Enteral, Every 4 hours PRN, Starting on 11/18/22 at 1330, Until [place]y 12/14/22 at 1059, severe pain, Indications: Acute PainIndications:Acute Pain Given 12/14/2022 8:05 AM CDT 5 mg Given 12/13/2022 9:36 PM CDT 5 mg Given 12/13/2022 8:03 AM CDT 5 mg oxyCODONE (ROXICODONE) immediate release tablet 5 mg 5 mg, Oral, Daily- 0600, 14 doses, First dose on 12/02/22 at 0600, Last dose on Sun12/15/22 at 0600, Indications: Acute PainIndications:Acute Pain Given 12/14/2022 5:45 AM CDT 5 mg Given 12/13/2022 5:27 AM CDT 5 mg Given 12/12/2022 5:07 AM CDT 5 mg pantoprazole (PROTONIX) EC/DR tablet 40 mg 40 mg, Oral, Daily- 0600, First dose on [place]y 12/14/22 at 0600, Until Discontinued, Swallow whole. Do not crush, open, chew, or split capsule. Given 12/14/2022 5:44 AM CDT 40 mg pantoprazole-sodium bicarbonate 2mg/ml oral liquid 40 mg 40 mg, Per Tube, Daily before breakfast, First dose on 11/18/22 at 0730, Until Discontinued, Sub for omeprazole 20mg Given 11/18/2022 10:33 AM CDT 40 mg pantoprazole-sodium bicarbonate 2mg/ml oral liquid 40 mg 40 mg, Per Tube, Daily before breakfast, First dose (after last modification) on 11/19/22 at 0745, Until Discontinued, Sub for omeprazole 20mg Given 12/13/2022 5:48 AM CDT 40 mg Given 12/11/2022 6:26 AM CDT 40 mg Given 12/10/2022 6:08 AM CDT 40 mg polyethylene glycol (MIRALAX) packet 17 g 17 g, Per Tube, 2 times daily PRN, Starting on Sun12/03/22 at 0924, Until Sun12/06/22 at 1438, constipation, Dilute/Mix with 4-8 oz fluid for administration. Second line prn Given 12/03/2022 9:25 AM CDT 17 g polyethylene glycol (MIRALAX) packet 17 g 17 g, Per Tube, 2 times daily PRN, Starting on Sun12/06/22 at 1436, Until [place]y 12/14/22 at 1059, constipation, offer first line, Dilute/Mix with 4-8 oz fluid for administration. Second line prn Given 12/13/2022 11:46 AM CDT 17 g senna-docusate (SENOKOT-S) 8.6-50 MG tablet 2 tablet 2 tablet, Enteral, Daily PRN, Starting on Sun11/17/22 at 1712, Until Sun12/06/22 at 1438, constipation Given 12/03/2022 9:25 AM CDT 2 tablets senna-docusate (SENOKOT-S) 8.6-50 MG tablet 2 tablet 2 tablet, Enteral, Daily PRN, Starting on Sun12/06/22 at 1437, Until Sun12/14/22 at 1059, constipation, offer third line simethicone (MYLICON) chewable tablet 80 mg 80 mg, Per Tube, 2 times daily PRN, Starting on Sun11/19/22 at 1118, Until Sun12/14/22 at 1059, flatulence, gas Given 11/28/2022 8:52 PM CDT 80 mg Given 11/26/2022 12:46 PM CDT 80 mg Given 11/24/2022 12:57 AM CDT 80 mg tamsulosin (FLOMAX) 24 hr capsule 0.4 mg 0.4 mg, Enteral, After breakfast, First dose (after last modification) on 11/18/22 at 0800, Until Discontinued Given 12/14/2022 8:07 AM CDT 0.4 mg Given 12/13/2022 8:06 AM CDT 0.4 mg Given 12/12/2022 9:03 AM CDT 0.4 mg triamcinolone (KENALOG) 0.1 % ointment Apply externally, 2 times daily PRN, Starting on Sun11/17/22 at 1712, Until Sun12/14/22 at 1059, irritation, itching, Apply to itchy areas on skin, especially at sites where adhesives are placed Given 11/20/2022 8:15 PM CDT triamcinolone acetonide (KENALOG-40) injection 80 mg 80 mg, Intra-articular, Once, 1 dose, On Sun12/08/22 at 0900 Given 12/08/2022 1:11 PM CDT 80 mg verapamil (CALAN) tablet 40 mg 40 mg, Enteral, Every 8 hours, First dose (after last modification) on Sun11/17/22 at 2200, Until Discontinued, Hold for SBP less than 100 or HR less than 60 Given 12/14/2022 5:44 AM CDT 40 mg Given 12/13/2022 9:35 PM CDT 40 mg Given 12/13/2022 3:24 PM CDT 40 mg warfarin tablet 1 mg 1 mg, Oral, Once for Warfarin, 1 dose, On Sun11/30/22 at 1800, HIGH RISK MEDICATION Dispose dosage form and packaging appropriately., Indications: embolic strokeIndications:embolic stroke Given 11/30/2022 6:48 PM CDT 1 mg warfarin tablet 3 mg 3 mg, Oral, Once for Warfarin, 1 dose, On Sun11/29/22 at 1800, HIGH RISK MEDICATION Dispose dosage form and packaging appropriately., Indications: embolic strokeIndications:embolic stroke Given 11/29/2022 5:02 PM CDT 3 mg warfarin tablet 3 mg 3 mg, Oral, Once for Warfarin, 1 dose, On Sun12/04/22 at 1800, HIGH RISK MEDICATION Dispose dosage form and packaging appropriately., Indications: embolic strokeIndications:embolic stroke Given 12/04/2022 5:07 PM CDT 3 mg warfarin tablet 3 mg 3 mg, Oral, Once for Warfarin, 1 dose, On Tu12/05/22 at 1800, HIGH RISK MEDICATION Dispose dosage form and packaging appropriately., Indications: embolic strokeIndications:embolic stroke Given 12/05/2022 6:43 PM CDT 3 mg warfarin tablet 3 mg 3 mg, Oral, Once for Warfarin, 1 dose, On Sun12/08/22 at 1800, HIGH RISK MEDICATION Dispose dosage form and packaging appropriately., Indications: Embolic StrokeIndications:Embolic Stroke Given 12/08/2022 5:50 PM CDT 3 mg warfarin tablet 3.5 mg 3.5 mg, Oral, Daily Warfarin, 1 dose, First dose (after last modification) on Sun12/11/22 at 1800, HIGH RISK MEDICATION Dispose dosage form and packaging appropriately., Indications: Embolic StrokeIndications:Embolic Stroke Given 12/11/2022 5:47 PM CDT 3.5 mg warfarin tablet 3.5 mg 3.5 mg, Oral, Daily Warfarin, 1 dose, First dose (after last reorder) on Sun12/12/22 at 1800, HIGH RISK MEDICATION Dispose dosage form and packaging appropriately., Indications: Embolic StrokeIndications:Embolic Stroke Given 12/12/2022 5:46 PM CDT 3.5 mg warfarin tablet 3.5 mg 3.5 mg, Oral, Daily Warfarin, 1 dose, First dose (after last reorder) on Sun12/13/22 at 1800, HIGH RISK MEDICATION Dispose dosage form and packaging appropriately., Indications: Embolic StrokeIndications:Embolic Stroke Given 12/13/2022 5:56 PM CDT 3.5 mg warfarin tablet 4 mg 4 mg, Oral, Once for Warfarin, 1 dose, On Sun12/01/22 at 1800, HIGH RISK MEDICATION Dispose dosage form and packaging appropriately., Indications: embolic strokeIndications:embolic stroke Given 12/01/2022 6:21 PM CDT 4 mg warfarin tablet 4 mg 4 mg, Oral, Once for Warfarin, 1 dose, On Sun12/02/22 at 1800, HIGH RISK MEDICATION Dispose dosage form and packaging appropriately., Indications: embolic strokeIndications:embolic stroke Given 12/02/2022 6:18 PM CDT 4 mg warfarin tablet 4 mg 4 mg, Oral, Once for Warfarin, 1 dose, On Sun12/03/22 at 1800, HIGH RISK MEDICATION Dispose dosage form and packaging appropriately., Indications: embolic strokeIndications:embolic stroke Given 12/03/2022 5:54 PM CDT 4 mg warfarin tablet 4 mg 4 mg, Oral, Daily Warfarin, 2 doses, First dose on Sun12/06/22 at 1800, Last dose on Sun12/07/22 at 1800, HIGH RISK MEDICATION Dispose dosage form and packaging appropriately., Indications: embolic strokeIndications:embolic stroke Given 12/07/2022 5:13 PM CDT 4 mg Given 12/06/2022 5:32 PM CDT 4 mg warfarin tablet 4 mg 4 mg, Oral, Daily Warfarin, 2 doses, First dose on 12/09/22 at 1800, Last dose on Sun12/10/22 at 1800, HIGH RISK MEDICATION Dispose dosage form and packaging appropriately., Indications: Embolic StrokeIndications:Embolic Stroke Given 12/10/2022 6:09 PM CDT 4 mg Given 12/09/2022 5:10 PM CDT 4 mg warfarin tablet 5 mg 5 mg, Oral, Once for Warfarin, 1 dose, On Sun11/17/22 at 1800, HIGH RISK MEDICATION Dispose dosage form and packaging appropriately., 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 Given 11/17/2022 11:20 PM CDT 5 mg warfarin tablet 5 mg 5 mg, Oral, Once for Warfarin, 1 dose, On Sun11/20/22 at 1800, HIGH RISK MEDICATION Dispose dosage form and packaging appropriately., Indications: embolic strokeIndications:embolic stroke Given 11/20/2022 6:48 PM CDT 5 mg warfarin tablet 5 mg 5 mg, Oral, Daily Warfarin, 2 doses, First dose (after last reorder) on Sun11/21/22 at 1800, Last dose on Sun11/22/22 at 1800, HIGH RISK MEDICATION Dispose dosage form and packaging appropriately., Indications: embolic strokeIndications:embolic stroke Given 11/22/2022 5:45 PM CDT 5 mg Given 11/21/2022 5:01 PM CDT 5 mg warfarin tablet 6 mg 6 mg, Oral, Once for Warfarin, 1 dose, On Sun11/28/22 at 1800, HIGH RISK MEDICATION Dispose dosage form and packaging appropriately., Indications: embolic strokeIndications:embolic stroke Given 11/28/2022 5:15 PM CDT 6 mg warfarin tablet 7.5 mg 7.5 mg, Oral, Daily Warfarin, 2 doses, First dose on Sun11/23/22 at 1800, Last dose on Sun11/24/22 at 1800, HIGH RISK MEDICATION Dispose dosage form and packaging appropriately., Indications: embolic strokeIndications:embolic stroke Given 11/24/2022 5:35 PM CDT 7.5 mg Given 11/23/2022 5:36 PM CDT 7.5 mg warfarin tablet 7.5 mg 7.5 mg, Oral, Once for Warfarin, 1 dose, On Sun11/26/22 at 1800, HIGH RISK MEDICATION Dispose dosage form and packaging appropriately., Indications: acute CVAIndications:acute CVA Given 11/26/2022 5:59 PM CDT 7.5 mg warfarin tablet 7.5 mg 7.5 mg, Oral, Once for Warfarin, 1 dose, On Sun11/27/22 at 1945, HIGH RISK MEDICATION Dispose dosage form and packaging appropriately., Indications: Acute Ischemic StrokeIndications:Acute Ischemic Stroke Given 11/27/2022 7:50 PM CDT 7.5 mg documented in this encounter Active and Recently Administered Medications Times are shown in CDT. Scheduled Medication Order 12/12/2022 12/13/2022 12/14/2022 baclofen (LIORESAL) tablet 5 mg 5 mg, Oral, Nightly, First dose on Sun11/28/22 at 2100, Until Discontinued 2118 (Given - Provider: Awilda Gonsalves RN) 2134 (Given - Provider: Awilda Gonsalves RN) bethanechol (URECHOLINE) tablet 25 mg 25 mg, Oral, 3 times daily (3 times per day), First dose on Sun11/28/22 at 1500, Until Discontinued 901 (Given - Provider: Troy Allen RN)145 (Given - Provider: Troy Allen RN)2119 (Given - Provider: Awilda Gonsalves RN) 08 (Given - Provider: Marcella Orantes, AMBROSE)152 (Given - Provider: Marcella Orantes, RN)2134 (Given - Provider: Awilda Gonsalves RN) 08 (Given - Provider: Marcella Orantes, AMBROSE) cefdinir (OMNICEF) capsule 300 mg (COMPLETED) 300 mg, Oral, 2 times daily (2 times per day), 14 doses, First dose on [place] 12/07/22 at 1615, Last dose on Sun12/14/22 at 0900, Indications: Uncomplicated Urinary Tract Infection 901 (Given - Provider: Troy Allen RN)2118 (Given - Provider: Awilda Gonsalves RN) 805 (Given - Provider: Marcella Orantes, RN)2134 (Given - Provider: Awilda Gonsalves RN) 805 (Given - Provider: Marcella Orantes RN) cholecalciferol (VITAMIN D3) tablet 2,000 Units 2,000 Units, Per Tube, Daily, First dose (after last modification) on 11/18/22 at 0900, Until Discontinued 902 (Given - Provider: Troy Allen RN) 805 (Given - Provider: Marcella Orantes RN) 806 (Given - Provider: Marcella Orantes, RN) cyclobenzaprine (FLEXERIL) tablet 5 mg 5 mg, Oral, 3 times daily (3 times per day), First dose (after last modification) on 11/25/22 at 1500, Until Discontinued 901 (Given - Provider: Troy Allen RN)145 (Given - Provider: Troy Allen RN)2118 (Given - Provider: Awilda Gonsalves RN) 805 (Given - Provider: Marcella Orantes, AMBROSE)152 (Given - Provider: Marcella Orantes, AMBROSE)2134 (Given - Provider: Awilda Gonsalves RN) 805 (Given - Provider: Marcella Orantes, AMBROSE) fluconazole (DIFLUCAN) tablet 200 mg (COMPLETED) 200 mg, Oral, Daily, 2 doses, First dose on Sun12/12/22 at 0900, Last dose on Sun12/13/22 at 0900, Reason for Therapy: Fungal Infection Suspected, Type of Therapy: New Therapy, Indication: Skin-soft tissue infection 901 (Given - Provider: Troy Allen RN) 804 (Given - Provider: Marcella Orantes RN) gabapentin (NEURONTIN) capsule 300 mg 300 mg, Oral, 3 times daily (3 times per day), First dose on Sun12/03/22 at 0745, Until Discontinued 901 (Given - Provider: Troy Allen RN)1500 (Given - Provider: Troy Allen RN)2118 (Given - Provider: Awilda Gonsalves, RN) 804 (Given - Provider: Marcella Orantes, RN)1524 (Given - Provider: Marcella Orantes, RN)2134 (Given - Provider: Awilda Gonsalves RN) 08 (Given - Provider: Marcella Orantes, RN) hydrocortisone (ANUSOL-HC) 2.5 % rectal cream Rectal, 2 times daily (2 times per day), First dose on 11/26/22 at 2100, Until Discontinued 904 (Not Given - Provider: Troy Allen RN - Reason: Patient/family refused)2119 (Given - Provider: Awilda Gonsalves RN) 803 (Not Given - Provider: Marcella Orantes RN - Reason: Patient/family refused)2156 (Not Given - Provider: Awilda Gonsalves RN - Reason: Patient/family refused) 08 (Not Given - Provider: Marcella Orantes RN - Reason: Patient/family refused) lidocaine (LIDOCARE) 4 % patch 1 patch 1 patch, Transdermal, Administer over 12 Hours, Daily, First dose on 11/25/22 at 0900, Until Discontinued, Apply to hip as needed 903 (Medication Applied - Provider: Troy Allen RN)2119 (Medication Removed - Provider: Awilda Gonsalves RN) 08 (Not Given - Provider: Marcella Orantes RN - Reason: Patient/family refused) 804 (Not Given - Provider: Marcella Orantes RN - Reason: Patient/family refused) loratadine (CLARITIN) tablet 10 mg 10 mg, Enteral, Daily, First dose (after last modification) on 11/18/22 at 0900, Until Discontinued, Sub for zyrtec 09 (Given - Provider: Troy Allen RN) 08 (Given - Provider: Marcella Orantes, AMBROSE) 08 (Given - Provider: Marcella Orantes, AMBROSE) metoprolol tartrate (LOPRESSOR) tablet 25 mg 25 mg, Enteral, 2 times daily (2 times per day), First dose (after last modification) on Sun11/17/22 at 2100, Until Discontinued, Hold for SBP less than 100 or HR less than 60 09 (Given - Provider: Troy Allen RN)2119 (Given - Provider: Awilda Gonsalves RN) 08 (Given - Provider: Marcella Orantes RN)213 (Given - Provider: Awilda Gonsalves RN) 0808 (Given - Provider: Marcella Orantes RN) muscle rub (ICY HOT) 10-15 % cream Topical, 3 times daily (3 times per day), First dose on Sun12/05/22 at 1500, Until Discontinued 0900 (Not Given - Provider: Troy Allen RN - Reason: Patient/family refused)1502 (Not Given - Provider: Troy Allen RN - Reason: Patient/family refused)2119 (Given - Provider: Awilda Gonsalves RN) 08 (Given - Provider: Marcella Orantes RN)152 (Not Given - Provider: Marcella Orantes RN - Reason: Patient/family refused)2156 (Not Given - Provider: Awilda Gonsalves RN - Reason: Patient/family refused) 08 (Not Given - Provider: Marcella Orantes RN - Reason: Patient/family refused) oxyCODONE (ROXICODONE) immediate release tablet 5 mg 5 mg, Oral, Daily- 599, 14 doses, First dose on Sun12/02/22 at 0600, Last dose on Sun12/15/22 at 0600, Indications: Acute Pain 0507 (Given - Provider: Bradley Spain) 0527 (Given - Provider: Awilda Gonsalves RN) 0545 (Given - Provider: Awilda Gonsalves RN) pantoprazole (PROTONIX) EC/DR tablet 40 mg 40 mg, Oral, Daily- 0600, First dose on [place] 12/14/22 at 0600, Until Discontinued, Swallow whole. Do not crush, open, chew, or split capsule. 0544 (Given - Provider: Awilda Gonsalves RN) pantoprazole-sodium bicarbonate 2mg/ml oral liquid 40 mg (CANCELED) 40 mg, Per Tube, Daily before breakfast, First dose (after last modification) on 11/19/22 at 0745, Until Discontinued, Sub for omeprazole 20mg 0607 (Not Given - Provider: Bradley Spain - Reason: Other - Comment: Prefers tablets) 0548 (Given - Provider: Awilda Gonsalves RN) tamsulosin (FLOMAX) 24 hr capsule 0.4 mg 0.4 mg, Enteral, After breakfast, First dose (after last modification) on Sun11/18/22 at 0800, Until Discontinued 0903 (Given - Provider: Troy Allen RN) 0806 (Given - Provider: Marcella Orantes, RN) 0807 (Given - Provider: Marcella Orantes, RN) verapamil (CALAN) tablet 40 mg 40 mg, Enteral, Every 8 hours, First dose (after last modification) on Sun11/17/22 at 2200, Until Discontinued, Hold for SBP less than 100 or HR less than 60 0507 (Given - Provider: Bradley Spain)1459 (Given - Provider: Troy Allen RN)2119 (Given - Provider: Awilda Gonsalves RN) 0527 (Given - Provider: Awilda Gonsalves RN)1524 (Given - Provider: Marcella Orantes, AMBROSE)2135 (Given - Provider: Awilda Gonsalves RN) 0544 (Given - Provider: Awilda Gonsalves RN) Warfarin Per Policy Does not apply, Daily Warfarin, First dose on Sun11/17/22 at 1800, Until Discontinued, HIGH RISK MEDICATION, Clinician to Dose: Pharmacist to evaluate daily, Indication of use: Embolic stroke, Target INR: 2 - 3 174 (Information Noted - Provider: Troy Allen RN) 1756 (Information Noted - Provider: Marcella Orantes RN) warfarin tablet 3.5 mg (COMPLETED) 3.5 mg, Oral, Daily Warfarin, 1 dose, First dose (after last reorder) on Sun12/12/22 at 1800, HIGH RISK MEDICATION Dispose dosage form and packaging appropriately., Indications: Embolic Stroke 1746 (Given - Provider: Troy Allen RN) warfarin tablet 3.5 mg (COMPLETED) 3.5 mg, Oral, Daily Warfarin, 1 dose, First dose (after last reorder) on Sun12/13/22 at 1800, HIGH RISK MEDICATION Dispose dosage form and packaging appropriately., Indications: Embolic Stroke 1756 (Given - Provider: Marcella Orantes RN) PRN Medication Order 12/12/2022 12/13/2022 12/14/2022 acetaminophen (TYLENOL) tablet 500 mg 500 mg, Per Tube, Every 6 hours PRN, Starting on Sun11/17/22 at 1712, Until [place] 12/14/22 at 1059, mild pain, moderate pain, Fever 1526 (Given - Provider: Marcella Orantes, AMBROSE) bisacodyl (DULCOLAX) suppository 10 mg 10 mg, Rectal, Daily PRN, Starting on Sun12/06/22 at 1437, Until [place] 12/14/22 at 1059, offer second line guaiFENesin (ROBITUSSIN) 100 MG/5ML liquid 10 mL 10 mL, Enteral, 2 times daily PRN, Starting on Sun11/17/22 at 1712, Until [place] 12/14/22 at 1059, congestion, cough hydrOXYzine (ATARAX) tablet 25 mg 25 mg, Oral, Every 6 hours PRN, Starting on Sun11/22/22 at 1017, Until [place] 12/14/22 at 1059, anxiety 2120 (Given - Provider: Awilda Gonsalves RN) 2134 (Given - Provider: Awilda Gonsalves RN) ondansetron ODT (ZOFRAN-ODT) disintegrating tablet 4 mg 4 mg, Per Tube, Every 6 hours PRN, Starting on Sun11/19/22 at 0016, Until [place] 12/14/22 at 1059, nausea, vomiting 0512 (Given - Provider: Bradley Spain) oxyCODONE (ROXICODONE) immediate release tablet 5 mg 5 mg, Enteral, Every 4 hours PRN, Starting on 11/18/22 at 1330, Until [place] 12/14/22 at 1059, severe pain, Indications: Acute Pain 09 (Given - Provider: Troy Allen RN)2118 (Given - Provider: Awilda Gonsalves RN) 802 (Given - Provider: Marcella Orantes, AMBROSE)2135 (Given - Provider: Awilda Gonsalves RN) 804 (Given - Provider: Marcella Orantes, AMBROSE) polyethylene glycol (MIRALAX) packet 17 g 17 g, Per Tube, 2 times daily PRN, Starting on Sun12/06/22 at 1436, Until [place] 12/14/22 at 1059, constipation, offer first line, Dilute/Mix with 4-8 oz fluid for administration. Second line prn 1146 (Given - Provider: Marcella Orantes RN) senna-docusate (SENOKOT-S) 8.6-50 MG tablet 2 tablet 2 tablet, Enteral, Daily PRN, Starting on Sun12/06/22 at 1437, Until [place] 12/14/22 at 1059, constipation, offer third line simethicone (MYLICON) chewable tablet 80 mg 80 mg, Per Tube, 2 times daily PRN, Starting on 11/19/22 at 1118, Until [place] 12/14/22 at 1059, flatulence, gas triamcinolone (KENALOG) 0.1 % ointment Apply externally, 2 times daily PRN, Starting on Sun11/17/22 at 1712, Until [place] 12/14/22 at 1059, irritation, itching, Apply to itchy areas on skin, especially at sites where adhesives are placed documented in this encounter Care Teams [employer] Applications 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
== END 2024-03-15 11:29 | disposition home or self-care (01) | DRG 742 ==
LOC: ANHSURGERY 17:01 → ANH2MED 17:01
PROVIDERS: Surgery; Admitting Provider Obstetrics & Gynecology; PCP Student in an Organized Health Care Education/Training Program; Visit Provider Obstetrics & Gynecology
PROC: 0UT94ZZ Resection of Uterus, Percutaneous Endoscopic Approach (ICD-10-PCS; principal; 2024-03-13 07:30)
PROC: 0DJV4ZZ Inspection of Mesentery, Percutaneous Endoscopic Approach (ICD-10-PCS; CPT 49320; 2024-03-13 07:30)
DX: N92.0 Excessive and frequent menstruation with regular cycle (principal); K91.72 Accidental puncture and laceration of a digestive system organ or structure during other procedure; G89.18 Other acute postprocedural pain; R10.9 Unspecified abdominal pain; Z86.73 Personal history of transient ischemic attack (TIA), and cerebral infarction without residual deficits; Z87.891 Personal history of nicotine dependence
CPT/HCPCS: 36415; 74177; 80048; 85025; 85027; 86140; 88307; 99199; A9270; J0690; J1100; J1171; J1596; J1650; J1741; J1836; J1885; J2003; J2250; J2371; J2405; J2470; J2543; J2704; J3010; J7030; J7120; Q9967; Q9968